=== PATIENT | male | born 1960 | race American Indian/Alaskan Native ===

== ENCOUNTER 2021-01-22 22:23 | Inpatient (IN) | payer OTHER, SELFPAY ==
--- NOTE | 2021-01-22 22:30 | Emergency Department Report ---
ED Shortness of Breath HPI - General Chief Complaint: Dyspnea/Respdistress Stated Complaint: RESPIRATORY DISTRESS Time Seen by Provider: 01/22/21 22:25 Source: patient, EMS Mode of arrival: Stretcher Limitations: No Limitations - History of Present Illness Initial Comments: Patient is a 60-year-old male that presents emergency room with complaints of di fficulty breathing and shortness of breath. He states it started 3 days ago. Patient dates symptoms are worsening. Patient states he has exposure to Covid. Patient states everybody in his house is infected with Covid. Patient complains of cough, fever, chills, loss of smell of breath. Patient denies chest pain. Patient brought in by EMS. Patient report received. Patient being bagged with 100% because the patient's oxygen saturation is less than 80. Patient initial oxygen saturation was 50% and after a nonrebreather was 75%. Patient was being assisted ventilated with a BVM and it increased to 82%. MD Complaint: shortness of breath - Related Data Previous Rx's Medication Instructions Recorded Last Taken Type Clindamycin [Clindamycin CAP] 300 mg PO Q8H #21 cap 03/12/20 Unknown Rx Insulin NPH/Regular [Novolin 70/30] 18 unit SUB-Q TIDAC #1 vial 03/12/20 Unknown Rx Syringe-Needle,Insulin,0.5 ml 1 box MC TID #1 box 03/12/20 Unknown Rx [Insulin Syringe/Needle 0.5 ML] Allergies Allergy/AdvReac Type Severity Reaction Status Date / Time No Known Allergies Allergy Unverified 03/12/20 13:41 ED Review of Systems ROS: Stated complaint: RESPIRATORY DISTRESS Other details as noted in HPI Constitutional: see HPI, chills, fever Eyes: denies: eye pain, eye discharge, vision change ENT: denies: ear pain, throat pain Respiratory: see HPI, cough, shortness of breath, SOB with exertion, SOB at rest. denies: wheezing Cardiovascular: denies: chest pain, palpitations Endocrine: no symptoms reported Gastrointestinal: denies: abdominal pain, nausea, diarrhea Genitourinary: denies: urgency, dysuria Musculoskeletal: denies: back pain, joint swelling, arthralgia Skin: denies: rash, lesions Neurological: denies: headache, weakness, paresthesias Psychiatric: denies: anxiety, depression Hematological/Lymphatic: denies: easy bleeding, easy bruising ED Past Medical Hx - Past Medical History Previous Medical History?: Yes Hx Hypertension: Yes Hx Diabetes: Yes Hx Renal Disease: Yes Additional medical history: hidradentitis surgery x 2` - Surgical History Past Surgical History?: Yes Additional Surgical History: hidraentitis - Social History Smoking Status: Never Smoker Substance Use Type: None - Medications Home Medications: Home Medications Medication Instructions Recorded Confirmed Last Taken Type Clindamycin [Clindamycin CAP] 300 mg PO Q8H #21 cap 03/12/20 Unknown Rx Insulin NPH/Regular [Novolin 70/30] 18 unit SUB-Q TIDAC #1 vial 03/12/20 Un known Rx Syringe-Needle,Insulin,0.5 ml 1 box MC TID #1 box 03/12/20 Unknown Rx [Insulin Syringe/Needle 0.5 ML] ED Physical Exam - General General appearance: alert, in distress - Head Head exam: Present: atraumatic, normocephalic - Eye Eye exam: Present: normal appearance - ENT ENT exam: Present: mucous membranes moist - Neck Neck exam: Present: normal inspection - Respiratory Respiratory exam: Present: respiratory distress, accessory muscle use, decreased breath sounds - Cardiovascular Cardiovascular Exam: Present: regular rate, normal rhythm. Absent: systolic murmur, diastolic murmur, rubs, gallop - GI/Abdominal GI/Abdominal exam: Present: soft, normal bowel sounds - Rectal Rectal exam: Present: deferred - Extremities Exam Extremities exam: Present: normal inspection - Back Exam Back exam: Present: normal inspection - Neurological Exam Neurological exam: Present: alert, oriented X3 - Psychiatric Psychiatric exam: Present: normal affect, normal mood - Skin Skin exam: Present: warm, dry, intact, normal color. Absent: rash ED Course Vital Signs 01/22/21 01/23/21 01/23/21 22:29 00:19 01:40 Temperature 99 F Pulse Rate 109 H 106 H 97 H Respiratory 47 H 20 Rate Blood Pressure 123/67 98/59 O2 Sat by Pulse 83 L 96 99 Oximetry 01/23/21 01/23/21 01/23/21 01:45 02:01 02:15 Temperature Pulse Rate 97 H 97 H 98 H Respiratory 19 16 22 Rate Blood Pressure 84/59 84/59 100/64 O2 Sat by Pulse 99 99 99 Oximetry - Reevaluation(s) Reevaluation #1: After initial valuation, the patient's was intubated due to severe hypoxia and increased work to breathe and lethargy. 01/22/21 22:29 Reevaluation #2: Patient intubated without difficulty. See procedure note. RSI used. Patient's oxygenation improved immediately after intubation. 01/22/21 22:48 Reevaluation #3: Patient on vent and adequately sedated. 01/22/21 23:08 Reevaluation #4: Patient is bucking the vent. Patient was placed on a propofol drip in addition to his already maxed fentanyl drip. 01/22/21 23:22 Reevaluation #5: Patient's adequately sedated on propofol and fentanyl. Patient's vital signs stable. 01/23/21 00:46 - Consultations Consultation #1: hospitalist consulted for admission. Hospitalist to admit patient. 01/23/21 01:17 - Intubation Time Out Performed: Yes Sedative: Etomidate Paralytic: Rocuronium Laryngoscope: fiberoptic video scope Size: 4 Assist Device Used: fiberoptic device ET Tube Size: 7.5 Tube Secured Depth (cm): 22 Tube Secured Location: teeth Tube Placement Confirmation: visualized tube passing t, equal breath sounds bilat, no breath sounds over epi, confirmation by capnometr Patient Tolerated Procedure: well, no complications Intubation Complications: none ED Medical Decision Making - Lab Data Result diagrams: 01/22/21 22:57 01/22/21 22:57 - Radiology Data Radiology results: report reviewed, image reviewed interpreted by me: Chest x-ray: Bilateral pneumonia, no pneumothorax, no osseous findings, ET tube and NG tube in good placement. CHEST 1 VIEW 01/22/2021 9:58 PM INDICATION / CLINICAL INFORMATION: Dyspnea, covid +, intubation. COMPARISON: None available. FINDINGS: SUPPORT DEVICES: ET tube and NG tube again project in expected position HEART / MEDIASTINUM: No significant abnormality. LUNGS / PLEURA: Extensive bilateral airspace consolidation No pneumothorax. ADDITIONAL FINDINGS: No significant additional findings. IMPRESSION: 1. Bilateral pneumonia - Medical Decision Making Patient is a 60-year-old male that presents emergency room with complaints of shortness of breath and fever and cough. Patient severely hypoxic and tachypneic on arrival. Patient being bagged with a BVM for ventilator assistance due to the patient's severe hypoxia by EMS upon arrival. Patient initial evaluation done and removed to intubate the patient since the patient hypoxia persisted even with BVM assistance. Patient intubated without difficulty. RSI was used. See procedure notes. Post intubation, a chest x-ray was done. Chest x-ray showed satisfactory position of the NG tube and the ET tube as well as bilateral pneumonia. After intubation, Decadron Zithromax and Rocephin were given to the patient. Patient was also placed on a fentanyl drip for sedation. Patient had labs done which were essentially unremarkable except for renal insufficiency, electrolyte imbalance, lactic acidosis and elevated inflammatory numbers. Patient also have a Covid panel and infectious disease was consulted. Patient admitted to the hospital service for further evaluation treatment and into the ICU. Critical care time documented due to the multiple reassessments, prolonged time at the bedside, interpretation of diagnostics and labs. - Differential Diagnosis Covid, PUI, fever, pneumonia, respiratory failure, hypoxia, sob, doyle Critical Care Time: Yes Critical care time in (mins) excluding proc time.: 40 Critical care attestation.: If time is entered above; I have spent that time in minutes in the direct care of this critically ill patient, excluding procedure time. Critical Care Time: 40 minutes ED Disposition Clinical Impression: Hypoxia, Respiratory distress, SOB (shortness of breath), Person under investigation for COVID-19, Exposure to COVID-19 virus, Lactic acid acidosis Respiratory failure Qualifiers: Chronicity: acute Respiratory failure complication: hypoxia Qualified Code(s): J96.01 - Acute respiratory failure with hypoxia Pneumonia Qualifiers: Pneumonia type: due to unspecified organism Laterality: bilateral Lung location: unspecified part of lung Qualified Code(s): J18.9 - Pneumonia, unspecified organism Disposition: OP ADMIT IP TO THIS HOSP Is pt being admited?: Yes Does the pt Need Aspirin: No Condition: Critical Time of Disposition:
[2021-01-22] MEDS ORDERED: ETOMIDATE 20 MG/10 ML INJ IV ONE (22:34)
[2021-01-22] MEDS ORDERED: ROCURONIUM 50 MG/5 ML INJ IV ONE (22:35)
[2021-01-22] MEDS ORDERED: MIDAZOLAM 5 MG/5 ML INJ MDV IV NR (22:36)
[2021-01-22] MEDS ORDERED: AZITHROMYCIN/NS 500 MG/250 ML 500 MG/250 ML BAG IV ONE (22:38)
[2021-01-22] MEDS ORDERED: MINERAL OIL/PETROLATUM, WHITE OPHTH OINT 3.5 GM OU PRN (22:39)
[2021-01-22] MEDS ORDERED: dexAMETHasone 4 MG/ML VIAL IV ONE (22:41)
[2021-01-22] MEDS ORDERED: cefTRIAXone/NS 2 GM/100 ML 2 GM/100 ML BAG IV ONE (22:41)
[2021-01-22] MEDS: fentaNYL DRIP Premix 2,000 MCG/100 ML BAG IV SCH (22:51)
--- NOTE | 2021-01-22 23:06 | XRay Report ---
CHEST 1 VIEW 01/22/2021 9:58 PM INDICATION / CLINICAL INFORMATION: Dyspnea, covid +, intubation. COMPARISON: None available. FINDINGS: SUPPORT DEVICES: ET tube and NG tube again project in expected position HEART / MEDIASTINUM: No significant abnormality. LUNGS / PLEURA: Extensive bilateral airspace consolidation No pneumothorax. ADDITIONAL FINDINGS: No significant additional findings. IMPRESSION: 1. Bilateral pneumonia Signer Name: Ponce Bo MD Signed: 01/22/2021 11:02 PM Workstation Name: [id number]
[2021-01-22 23:31] LABS: Albumin 2.9 g/dL (3.9-5); Calcium 7.8 mg/dL (8.4-10.2)
[2021-01-22 23:57] LABS: Basophils % (Auto) 0.3 % (0.0-1.8); Hematocrit 42.1 % (35.5-45.6); Hemoglobin 14.4 gm/dl (11.8-15.2); Lymphocytes # (Auto) 0.5 K/mm3 (1.2-5.4); Lymphocytes % (Auto) 6.6 % (13.4-35.0); Mean Corpuscular HGB Conc 34 % (32-34); Mean Corpuscular Volume 93 fl (84-94); Monocytes # (Auto) 0.4 K/mm3 (0.0-0.8); Monocytes % (Auto) 5.5 % (0.0-7.3); Platelet Count 363 K/mm3 (140-440); Red Blood Count 4.54 M/mm3 (3.65-5.03); Red Cell Distribution Width 13.7 % (13.2-15.2)
[2021-01-23 01:32] LABS: ABG Base Excess -2.5 mmol/L (-2.0-3.0); ABG HCO3 22.4 mmol/L (20.0-26.0); ABG PCO2 39.5 mm Hg; ABG PH 7.372 pH Units (7.350-7.450); ABG PO2 165.4 mm Hg (80.0-90.0)
[2021-01-23 01:33] LABS: ABG Methemoglobin 0.5 % (0.0-1.5)
[2021-01-23] MEDS ORDERED: ACETAMINOPHEN 325 MG TAB PO PRN (02:16)
[2021-01-23] MEDS ORDERED: ONDANSETRON 4 MG/2 ML INJ IV PRN (02:17)
[2021-01-23] MEDS ORDERED: ACETAMINOPHEN 650 MG RECT SUPP PR PRN (02:25)
--- NOTE | 2021-01-23 04:13 | History and Physical Report ---
History of Present Illness Date of examination: 01/23/21 Date of admission: 01/23/21 01:19 Chief complaint: Chief complaint is shortness of breath History of present illness: History of presenting illness, patient is a 60-year-old male who presented to the emergency room complaining of shortness of breath going on for about 3 days, patient said the symptoms became progressively worse and made in call 911. Patient admitted to having been in the presence of many cases of COVID-19 and admitted to having fever and chills, loss of smell and taste, body aches Past History Past Medical History: diabetes, hypertension, hyperlipidemia, renal failure, other (HIDRADENTIS) Past Surgical History: Other (HIDRADENITIS) Social history: no significant social history Family history: no significant family history Medications and Allergies Allergies Allergy/AdvReac Type Severity Reaction Status Date / Time No Known Allergies Allergy Unverified 03/12/20 13:41 Home Medications Medication Instructions Recorded Confirmed Last Taken Type Clindamycin [Clindamycin CAP] 300 mg PO Q8H #21 cap 03/12/20 Unknown Rx Insulin NPH/Regular [Novolin 70/30] 18 unit SUB-Q TIDAC #1 vial 03/12/20 Unknown Rx Syringe-Needle,Insulin,0.5 ml 1 box MC TID #1 box 03/12/20 Unknown Rx [Insulin Syringe/Needle 0.5 ML] Active Meds: Active Medications Acetaminophen (Acetaminophen 650 Mg Rect Supp) 650 mg [place] Q4H PRN PRN Reason: Pain, Mild (1-3) Dexamethasone (Dexamethasone 4 Mg/Ml Vial) 6 mg IV DAILY CECE Fentanyl (Fentanyl 100 Mcg/2 Ml Inj) 50 mcg IV Q10MIN PRN PRN Reason: ANALGESIA Hydrophilic Ointment (Lip Therapy Vaseline) 1 applic TP Q2HR PRN PRN Reason: Dry Lips Fentanyl Citrate (Fentanyl Drip Premix) 2,000 mcg in 100 mls @ 6.124 mls/hr IV TITR CECE; Protocol Last Titration: 01/23/21 03:50 Dose: 3 mcg/kg/hr, 18.371 mls/hr Documented by: Propofol (Diprivan 10 Mg/Ml) 1,000 mg in 100 mls @ 3.674 mls/hr IV TITR CECE; Protocol Last Titration: 01/23/21 03:45 Dose: 15 mcg/kg/min, 11.022 mls/hr Documented by: Azithromycin (Zithromax/Ns) 500 mg in 250 mls @ 250 mls/hr IV Q24H CECE Ceftriaxone Sodium (Rocephin/Ns 1 Gm/50 Ml) 1 gm in 50 mls @ 100 mls/hr IV Q24H CECE; Protocol Multi-Ingred Cream/Lotion/Oil/Oint (Mineral Oil/Petrolatum, White Ophth Oint 3.5 Gm) 1 applic OU Q4HR PRN PRN Reason: Dry Eye(s) Ondansetron HCl (Ondansetron 4 Mg/2 Ml Inj) 4 mg IV Q8H PRN PRN Reason: Nausea And Vomiting Review of Systems Constitutional: fever, chills, weakness, poor appetite, no sweats, no night sweats Eyes: bilateral: other (NO BILATERAL EYE SYMPTOMS) Ears, nose, mouth and throat: no ear pain Cardiovascular: shortness of breath, dyspnea on exertion, no chest pain, no palpitations, no syncope, no lightheadedness Respiratory: cough, shortness of breath, dyspnea on exertion, no congestion, no wheezing Gastrointestinal: no abdominal pain, no nausea, no vomiting, no constipation, no change in bowel habits, no hematemesis Genitourinary Male: no dysuria, no hematuria Rectal: no pain Musculoskeletal: no neck stiffness, no neck pain Integumentary: no rash, no pruritis, no redness, no sores Neurological: weakness, no paralysis, no numbness, no seizures, no syncope, no vertigo, no headaches, no convulsions, no change in speech, no change in mentation Psychiatric: no anxiety, no suicidal ideation, no depression, no confusion Endocrine: no polydipsia, no polyuria, no nocturia Hematologic/Lymphatic: no easy bruising, no lymphadenopathy Exam - Constitutional Vitals: Temp Pulse Resp BP Pulse Ox 99 F 95 H 22 96/71 99 01/22/21 22:29 01/23/21 03:15 01/23/21 03:15 01/23/21 03:15 01/23/21 03:15 General appearance: Present: mild distress - EENT ENT: other (ENDOTRACHEAL TUBE IN-PLACE) - Neck Neck: Present: supple, normal ROM - Respiratory Respiratory effort: normal - Cardiovascular Rhythm: regular Heart Sounds: Present: S1 & S2. Absent: systolic murmur - Extremities Extremities: no ischemia, No edema Peripheral Pulses: within normal limits - Abdominal General gastrointestinal: Present: soft, non-tender, tender, distended. Absent: non-distended, hepatomegaly, splenomegaly Male genitourinary: Present: deferred - Rectal Rectal Exam: deferred - Integumentary Integumentary: Present: clear, warm, dry - Musculoskeletal Musculoskeletal: generalized weakness HEART Score - HEART Score Risk factors: 1-2 risk factors Troponin: < normal limit - Critical Actions Critical Actions: 0-3 pts:0.9-1.7%risk of adverse cardiac event.Candidate for discharge Results - Labs CBC & Chem 7: 01/22/21 22:57 01/22/21 22:57 Labs: Laboratory Last Values WBC 7.7 K/mm3 (4.5-11.0) 01/22/21 22:57 RBC 4.54 M/mm3 (3.65-5.03) 01/22/21 22:57 Hgb 14.4 gm/dl (11.8-15.2) 01/22/21 22:57 Hct 42.1 % (35.5-45.6) 01/22/21 22:57 MCV 93 fl (84-94) 01/22/21 22:57 MCH 32 pg (28-32) 01/22/21 22:57 MCHC 34 % (32-34) 01/22/21 22:57 RDW 13.7 % (13.2-15.2) 01/22/21 22:57 Plt Count 363 K/mm3 (140-440) 01/22/21 22:57 Lymph % (Auto) 6.6 % (13.4-35.0) L 01/22/21 22:57 Ray % (Auto) 5.5 % (0.0-7.3) 01/22/21 22:57 Eos % (Auto) 0.0 % (0.0-4.3) 01/22/21 22:57 Baso % (Auto) 0.3 % (0.0-1.8) 01/22/21 22:57 Lymph # (Auto) 0.5 K/mm3 (1.2-5.4) L 01/22/21 22:57 Ray # (Auto) 0.4 K/mm3 (0.0-0.8) 01/22/21 22:57 Eos # (Auto) 0.0 K/mm3 (0.0-0.4) 01/22/21 22:57 Baso # (Auto) 0.0 K/mm3 (0.0-0.1) 01/22/21 22:57 Seg Neutrophils % 87.6 % (40.0-70.0) H 01/22/21 22:57 Seg Neutrophils # 6.8 K/mm3 (1.8-7.7) 01/22/21 22:57 D-Dimer 1173.89 ng/mlDDU (0-234) H 01/22/21 22:57 ABG pH 7.372 pH Units (7.350-7.450) 01/23/21 Unknown ABG pCO2 39.5 mm Hg 01/23/21 Unknown ABG pO2 165.4 mm Hg (80.0-90.0) H 01/23/21 Unknown ABG HCO3 22.4 mmol/L (20.0-26.0) 01/23/21 Unknown ABG O2 Saturation 99.0 % (95.0-99.0) 01/23/21 Unknown ABG Base Excess -2.5 mmol/L (-2.0-3.0) L 01/23/21 Unknown ABG Hemoglobin 14.2 gm/dl (14.0-18.0) 01/23/21 Unknown ABG Carboxyhemoglobin 1.7 % (0.0-5.0) 01/23/21 Unknown ABG Methemoglobin 0.5 % (0.0-1.5) 01/23/21 Unknown Oxyhemoglobin 96.8 % (95.0-99.0) 01/23/21 Unknown FiO2 100 % 01/23/21 Unknown Sodium 129 mmol/L (137-145) L 01/22/21 22:57 Potassium 3.4 mmol/L (3.6-5.0) L 01/22/21 22:57 Chloride 90.4 mmol/L (98-107) L 01/22/21 22:57 Carbon Dioxide 23 mmol/L (22-30) 01/22/21 22:57 Anion Gap 19 mmol/L 01/22/21 22:57 BUN 34 mg/dL (9-20) H 01/22/21 22:57 Creatinine 1.5 mg/dL (0.8-1.3) H 01/22/21 22:57 Estimated GFR 57 ml/min 01/22/21 22:57 BUN/Creatinine Ratio 23 % 01/22/21 22:57 Glucose 146 mg/dL (75-100) H 01/22/21 22:57 Lactic Acid 1.50 mmol/L (0.7-2.0) 01/23/21 00:36 Calcium 7.8 mg/dL (8.4-10.2) L 01/22/21 22:57 Ferritin 1207.0 ng/mL (30.0-300.0) H 01/22/21 22:57 Total Bilirubin 0.90 mg/dL (0.1-1.2) 01/22/21 22:57 AST 75 units/L (5-40) H 01/22/21 22:57 ALT 57 units/L (7-56) H 01/22/21 22:57 Alkaline Phosphatase 69 units/L (35-129) 01/22/21 22:57 Total Protein 8.2 g/dL (6.3-8.2) 01/22/21 22:57 Albumin 2.9 g/dL (3.9-5) L 01/22/21 22:57 Albumin/Globulin Ratio 0.5 % 01/22/21 22:57 Microbiology: Microbiology 01/22/21 22:57 Peripheral/Venous Blood Culture - Preliminary Culture in Progress 01/22/21 22:52 Peripheral/Venous Blood Culture - Preliminary Culture in Progress Assessment and Plan - Patient Problems (1) Person under investigation for COVID-19 Current Visit: Yes Status: Acute Plan to address problem: 1. DROPLET/AIRBORN/CONTACT ISOLATION 2. INFECTIOUS DISEASE CONSULT 3. I.V DEXAMETHASONE 4. I.V ZITHROMAX ANTIBIOTIC 5. I.V ROCEPHIN ANTIBIOTIC (2) Respiratory failure Current Visit: Yes Status: Acute Qualifiers: Chronicity: acute Respiratory failure complication: hypoxia Qualified Code(s): J96.01 - Acute respiratory failure with hypoxia Plan to address problem: 1. ICU ADMISSION 2. CONTINUE MECHANICAL VENTILATION 3. CRITICAL CARE CONSULT 4. RESPIRATORY THERAPY CONSULT (3) DEISI (acute kidney injury) Current Visit: Yes Status: Acute Plan to address problem: NEPHROLOGY CONSULT
[2021-01-23] MEDS: fentaNYL DRIP Premix 2,000 MCG/100 ML BAG IV SCH ×4 (05:16→22:09)
[2021-01-23] MEDS ORDERED: MIDAZOLAM 5 MG/5 ML INJ MDV IV NR (07:00)
--- NOTE | 2021-01-23 07:46 | Consultation ---
History of Present Illness - Reason for Consult acute renal failure - History of Present Illness patient is a 60 year old male was admitted for worsening SOB, was found to have BL PNA on CXR, he is currently on isolation for possible COVID-19, he was also found to have elevated Cr and hyponatremia and renal consult was requested Past History Past Medical History: diabetes, hypertension, hyperlipidemia, renal failure, other (HIDRADENTIS) Past Surgical History: Other (HIDRADENITIS) Social history: no significant social history Family history: no significant family history Medications and Allergies Allergies Allergy/AdvReac Type Severity Reaction Status Date / Time No Known Allergies Allergy Unverified 03/12/20 13:41 Home Medications Medication Instructions Recorded Confirmed Last Taken Type Clindamycin [Clindamycin CAP] 300 mg PO Q8H #21 cap 03/12/20 Unknown Rx Insulin NPH/Regular [Novolin 70/30] 18 unit SUB-Q TIDAC #1 vial 03/12/20 Unknown Rx Syringe-Needle,Insulin,0.5 ml 1 box MC TID #1 box 03/12/20 Unknown Rx [Insulin Syringe/Needle 0.5 ML] Active Meds: Active Medications Acetaminophen (Acetaminophen 650 Mg Rect Supp) 650 mg [place] Q4H PRN PRN Reason: Pain, Mild (1-3) Dexamethasone (Dexamethasone 4 Mg/Ml Vial) 6 mg IV DAILY CECE Fentanyl (Fentanyl 100 Mcg/2 Ml Inj) 50 mcg IV Q10MIN PRN PRN Reason: ANALGESIA Hydrophilic Ointment (Lip Therapy Vaseline) 1 applic TP Q2HR PRN PRN Reason: Dry Lips Fentanyl Citrate (Fentanyl Drip Premix) 2,000 mcg in 100 mls @ 6.124 mls/hr IV TITR CECE; Protocol Last Admin: 01/23/21 05:16 Dose: 3 mcg/kg/hr, 18.371 mls/hr Documented by: Propofol (Diprivan 10 Mg/Ml) 1,000 mg in 100 mls @ 3.674 mls/hr IV TITR CECE; Protocol Last Admin: 01/23/21 05:17 Dose: 15 mcg/kg/min, 11.022 mls/hr Documented by: Azithromycin (Zithromax/Ns) 500 mg in 250 mls @ 250 mls/hr IV Q24H CECE Ceftriaxone Sodium (Rocephin/Ns 1 Gm/50 Ml) 1 gm in 50 mls @ 100 mls/hr IV Q24H CECE; Protocol Midazolam HCl (Midazolam 5 Mg/5 Ml Inj Mdv) 5 mg IV ONCE NR Stop: 01/23/21 22:35 Multi-Ingred Cream/Lotion/Oil/Oint (Mineral Oil/Petrolatum, White Ophth Oint 3.5 Gm) 1 applic OU Q4HR PRN PRN Reason: Dry Eye(s) Ondansetron HCl (Ondansetron 4 Mg/2 Ml Inj) 4 mg IV Q8H PRN PRN Reason: Nausea And Vomiting Exam - Vital Signs Vital signs: Vital Signs Temp Pulse Resp BP Pulse Ox 99 F 109 H 47 H 123/67 83 L 01/22/21 22:29 01/22/21 22:29 01/22/21 22:29 01/22/21 22:29 01/22/21 22:29 Results - Lab Results 01/22/21 22:57 01/22/21 22:57 Most recent lab results ABG pH 7.372 pH Units (7.350-7.450) 01/23/21 Unknown ABG pCO2 39.5 mm Hg 01/23/21 Unknown ABG pO2 165.4 mm Hg (80.0-90.0) H 01/23/21 Unknown ABG HCO3 22.4 mmol/L (20.0-26.0) 01/23/21 Unknown ABG O2 Saturation 99.0 % (95.0-99.0) 01/23/21 Unknown Calcium 7.8 mg/dL (8.4-10.2) L 01/22/21 22:57 Assessment and Plan Hypoxic resp failure possible COVID-19 PNA Acute renal failure Hyponatremia Will start gentle NS 50 cc/h will request bladder scan will order urine lytes fluid restriction when oral diet resumed Renally dose meds strict I&O Carlton Pitts MD [phone]
[2021-01-23 09:45] LABS: C-Reactive Protein 30.4 mg/dL (0.00-1.30)
[2021-01-23] MEDS: FAMOTIDINE 20 MG/2 ML INJ IV SCH ×2 (09:55→22:08)
[2021-01-23] MEDS ORDERED: dexAMETHasone 4 MG/ML VIAL IV SCH (10:00)
--- NOTE | 2021-01-23 10:38 | Progress Note ---
Assessment and Plan Assessment and plan: Sepsis -Presented with low-grade fever, tachycardia, tachypnea, acute respiratory failure, pneumonia on CXR and possible acute kidney injury -Antibiotic therapy -Infectious disease consulted, appreciate recommendations -01/22 blood cultures x2 pending COVID-19 PUI -01/22 COVID-19 PCR pending -Contact/droplet precautions -Antibiotics, steroid -Infectious disease consulted Acute hypoxic respiratory failure -CCM consulted, appreciate recommendations -Wean mechanical ventilation as tolerated -Pulmonary hygiene -SPO2 monitoring -VAP bundle Bilateral pneumonia -Evidenced by CXR -Antibiotic therapy Acute kidney injury -Likely secondary to VMO -02/2020 CR/BUN 1.2 -Avoid nephrotoxic medications, renally dose medications -Nephrology consulted, appreciate recommendations -Strict intake and output -Renal ultrasound pending Hyponatremia -Presented with a sodium of 129 -Trend BMP -MIVF Hypochloremia -MIVF -Trend BMP Diabetes mellitus -Hemoglobin A1c pending -SSI -CC diet when appropriate Hypertension -Resume home antihypertensive regimen when appropriate -Blood pressure monitor per protocol Hyperlipidemia -Resume home statin therapy when appropriate DVT/GI prophylaxis: SCDs to bilateral lower extremities while in bed, heparin subcu, PPI Dispo: ICU History Interval history: This is a 60-year-old male with diabetes mellitus, hypertension, hyperlipidemia, chronic renal insufficiency presents to the emergency department on 01/23 with shortness of breath, fevers chills, loss of smell and taste and body aches for the past 3 days via EMS. Per EMS patient's oxygen saturation on room air was 50% and after being placed on nonrebreather it increased 75%. Upon arrival to the emergency department patient was being bagged by EMS. In the emergency room patient was intubated due to severe hypoxia, increased work of breathing and lethargy. Patient was sedated on propofol and fentanyl. Patient presented with fever, tachycardia, tachypnea and acute hypoxic respiratory failure with PNA on CXR meeting Sepsis criteria. Lab work in the emergency department revealed hyponatremia, hypokalemia, hypochloremia, elevated CR/BUN and CXR showed bilateral pneumonia. Patient was admitted to the hospital service as a COVID-19 PUI with consults to infectious disease, nephrology and critical care medicine. Sepsis COVID-19 PUI Bilateral pneumonia Acute hypoxic respiratory failure Acute kidney injury Hyponatremia Hypokalemia Hypochloremia Diabetes mellitus Hypertension Hyperlipidemia Hyperlipidemia Chronic renal insufficiency Hospitalist Physical - Constitutional Vitals: Temp Pulse Resp BP Pulse Ox 99 F 80 16 92/56 94 01/22/21 22:29 01/23/21 09:15 01/23/21 09:15 01/23/21 09:15 01/23/21 09:15 General appearance: Present: no acute distress - EENT Eyes: Present: PERRL, EOM intact ENT: hearing intact, dentition normal - Neck Neck: Present: normal ROM - Respiratory Respiratory effort: normal Respiratory: bilateral: CTA, diminished - Cardiovascular Rhythm: regular Heart Sounds: Present: S1 & S2. Absent: systolic murmur, diastolic murmur - Extremities Extremities: no ischemia, pulses intact, pulses symmetrical, No edema, normal temperature, normal color Peripheral Pulses: within normal limits - Abdominal General gastrointestinal: soft, non-tender, non-distended, normal bowel sounds - Integumentary Integumentary: Present: warm, dry - Psychiatric Psychiatric: cooperative - Neurologic Neurologic: moves all extremities - Allied Health Allied health notes reviewed: nursing, RT HEART Score - HEART Score Risk factors: 1-2 risk factors Troponin: < normal limit - Critical Actions Critical Actions: 0-3 pts:0.9-1.7%risk of adverse cardiac event.Candidate for discharge Results - Labs CBC & Chem 7: 01/22/21 22:57 01/23/21 10:01 Labs: Laboratory Last Values WBC 7.7 K/mm3 (4.5-11.0) 01/22/21 22:57 RBC 4.54 M/mm3 (3.65-5.03) 01/22/21 22:57 Hgb 14.4 gm/dl (11.8-15.2) 01/22/21 22:57 Hct 42.1 % (35.5-45.6) 01/22/21 22:57 MCV 93 fl (84-94) 01/22/21 22:57 MCH 32 pg (28-32) 01/22/21 22:57 MCHC 34 % (32-34) 01/22/21 22:57 RDW 13.7 % (13.2-15.2) 01/22/21 22:57 Plt Count 363 K/mm3 (140-440) 01/22/21 22:57 Lymph % (Auto) 6.6 % (13.4-35.0) L 01/22/21 22:57 [place] % (Auto) 5.5 % (0.0-7.3) 01/22/21 22:57 Eos % (Auto) 0.0 % (0.0-4.3) 01/22/21 22:57 Baso % (Auto) 0.3 % (0.0-1.8) 01/22/21 22:57 Lymph # (Auto) 0.5 K/mm3 (1.2-5.4) L 01/22/21 22:57 [place] # (Auto) 0.4 K/mm3 (0.0-0.8) 01/22/21 22:57 Eos # (Auto) 0.0 K/mm3 (0.0-0.4) 01/22/21 22:57 Baso # (Auto) 0.0 K/mm3 (0.0-0.1) 01/22/21 22:57 Seg Neutrophils % 87.6 % (40.0-70.0) H 01/22/21 22:57 Seg Neutrophils # 6.8 K/mm3 (1.8-7.7) 01/22/21 22:57 D-Dimer 1173.89 ng/mlDDU (0-234) H 01/22/21 22:57 ABG pH 7.372 pH Units (7.350-7.450) 01/23/21 Unknown ABG pCO2 39.5 mm Hg 01/23/21 Unknown ABG pO2 165.4 mm Hg (80.0-90.0) H 01/23/21 Unknown ABG HCO3 22.4 mmol/L (20.0-26.0) 01/23/21 Unknown ABG O2 Saturation 99.0 % (95.0-99.0) 01/23/21 Unknown ABG O2 Content 19.6 (0.0-44) 01/23/21 Unknown ABG Base Excess -2.5 mmol/L (-2.0-3.0) L 01/23/21 Unknown ABG Hemoglobin 14.2 gm/dl (14.0-18.0) 01/23/21 Unknown ABG Carboxyhemoglobin 1.7 % (0.0-5.0) 01/23/21 Unknown ABG Methemoglobin 0.5 % (0.0-1.5) 01/23/21 Unknown Oxyhemoglobin 96.8 % (95.0-99.0) 01/23/21 Unknown FiO2 100 % 01/23/21 Unknown Sodium 129 mmol/L (137-145) L 01/22/21 22:57 Potassium 3.4 mmol/L (3.6-5.0) L 01/22/21 22:57 Chloride 90.4 mmol/L (98-107) L 01/22/21 22:57 Carbon Dioxide 23 mmol/L (22-30) 01/22/21 22:57 Anion Gap 19 mmol/L 01/22/21 22:57 BUN 34 mg/dL (9-20) H 01/22/21 22:57 Creatinine 1.5 mg/dL (0.8-1.3) H 01/22/21 22:57 Estimated GFR 57 ml/min 01/22/21 22:57 BUN/Creatinine Ratio 23 % 01/22/21 22:57 Glucose 146 mg/dL (75-100) H 01/22/21 22:57 Glucose 149 mg/dL (75-100) H 01/22/21 22:57 Lactic Acid 1.90 mmol/L (0.7-2.0) 01/23/21 06:35 Calcium 7.8 mg/dL (8.4-10.2) L 01/22/21 22:57 Ferritin 1207.0 ng/mL (30.0-300.0) H 01/22/21 22:57 Total Bilirubin 0.90 mg/dL (0.1-1.2) 01/22/21 22:57 AST 75 units/L (5-40) H 01/22/21 22:57 ALT 57 units/L (7-56) H 01/22/21 22:57 Alkaline Phosphatase 69 units/L (35-129) 01/22/21 22:57 Lactate Dehydrogenase 685 units/L (91-180) H 01/22/21 22:57 C-Reactive Protein 30.40 mg/dL (0.00-1.30) H 01/22/21 22:57 Total Protein 8.2 g/dL (6.3-8.2) 01/22/21 22:57 Albumin 2.9 g/dL (3.9-5) L 01/22/21 22:57 Albumin/Globulin Ratio 0.5 % 01/22/21 22:57 Microbiology: Microbiology 01/22/21 22:57 Peripheral/Venous Blood Culture - Preliminary Culture in Progress 01/22/21 22:52 Peripheral/Venous Blood Culture - Preliminary Culture in Progress Active Medications - Current Medications Current Medications: Generic Name Dose Route Start Last Admin Trade Name Freq PRN Reason Stop Dose Admin Acetaminophen 650 mg 01/23/21 02:25 Acetaminophen 650 Mg Rect Supp [place] Q4H PRN Pain, Mild (1-3) Dexamethasone 6 mg 01/23/21 10:00 01/23/21 09:54 Dexamethasone 4 Mg/Ml Vial IV 6 mg DAILY CECE Administration Famotidine 20 mg 01/23/21 10:00 01/23/21 09:55 Famotidine 20 Mg/2 Ml Inj IV 20 mg BID CECE Administration Fentanyl 50 mcg 01/22/21 22:39 Fentanyl 100 Mcg/2 Ml Inj IV Q10MIN PRN ANALGESIA Hydrophilic Ointment 1 applic 01/22/21 22:39 Lip Therapy Vaseline TP Q2HR PRN Dry Lips Fentanyl Citrate 2,000 mcg in 100 mls @ 6.124 mls/hr 01/22/21 23:00 01/23/21 10:03 Fentanyl Drip Premix IV 3 mcg/kg/hr TITR CECE 18.371 mls/hr Administration Protocol 1 MCG/KG/HR Propofol 1,000 mg in 100 mls @ 3.674 mls/hr 01/22/21 23:45 01/23/21 05:17 Diprivan 10 Mg/Ml IV 15 mcg/kg/min TITR CECE 11.022 mls/hr Administration Protocol 5 MCG/KG/MIN Azithromycin 500 mg in 250 mls @ 250 mls/hr 01/23/21 22:00 Zithromax/Ns IV Q24H CECE Sodium Chloride 1,000 mls @ 50 mls/hr 01/23/21 08:00 Nacl 0.9% 1000 Ml IV DIRECT CECE Ceftriaxone Sodium 2 gm in 100 mls @ 200 mls/hr 01/23/21 22:00 Rocephin/Ns 2 Gm/100 Ml IV Q24H CECE Protocol Midazolam HCl 5 mg 01/22/21 22:36 Midazolam 5 Mg/5 Ml Inj Mdv IV 01/23/21 22:35 ONCE NR Multi-Ingred Cream/Lotion/Oil/Oint 1 applic 01/22/21 22:39 Mineral Oil/Petrolatum, White Ophth Oint 3.5 Gm OU Q4HR PRN Dry Eye(s) Ondansetron HCl 4 mg 01/23/21 02:17 Ondansetron 4 Mg/2 Ml Inj IV Q8H PRN Nausea And Vomiting
--- NOTE | 2021-01-23 11:13 | Vascular Lab Report ---
DUPLEX DOPPLER LOWER EXTREMITY VEINS, BILATERAL INDICATION / CLINICAL INFORMATION: COVID 19 suspect/pneumonia. TECHNIQUE: Duplex doppler imaging was performed through the veins of both lower extremities using venous heber angella and other maneuvers. COMPARISON: None available. FINDINGS: RIGHT COMMON FEMORAL VEIN: Negative. RIGHT FEMORAL VEIN: Negative. RIGHT POPLITEAL VEIN: Negative. RIGHT CALF VEINS: Negative. LEFT COMMON FEMORAL VEIN: Negative. LEFT FEMORAL VEIN: Negative. LEFT POPLITEAL VEIN: Negative. LEFT CALF VEINS: Negative. ADDITIONAL FINDINGS: None. IMPRESSION: 1. No sonographic evidence for DVT in either lower extremity. Signer Name: Tato Adkins MD Signed: 01/23/2021 11:08 AM Workstation Name: [id number]
--- NOTE | 2021-01-23 12:55 | Consultation ---
History of Present Illness Consult date: 01/23/21 Requesting physician: HILLARY LEONG Reason for consult: hypoxemia, other (COVID 19 Pneumonia.) History of present illness: 60 y/o male admitted with acute respiratory failure thought secondary to COVID 19. Patient is current intubated and sedated so not able to provide history. ABG showed a PaO2 of >100 on 100%. Past History Past Medical History: diabetes, hypertension, hyperlipidemia, renal failure, other (HIDRADENTIS) Past Surgical History: Other (HIDRADENITIS) Social history: no significant social history Family history: no significant family history Medications and Allergies Allergies Allergy/AdvReac Type Severity Reaction Status Date / Time No Known Allergies Allergy Unverified 03/12/20 13:41 Home Medications Medication Instructions Recorded Confirmed Last Taken Type Clindamycin [Clindamycin CAP] 300 mg PO Q8H #21 cap 03/12/20 Unknown Rx Insulin NPH/Regular [Novolin 70/30] 18 unit SUB-Q TIDAC #1 vial 03/12/20 Unknown Rx Syringe-Needle,Insulin,0.5 ml 1 box MC TID #1 box 03/12/20 Unknown Rx [Insulin Syringe/Needle 0.5 ML] Active Meds: Active Medications Acetaminophen (Acetaminophen 650 Mg Rect Supp) 650 mg [place] Q4H PRN PRN Reason: Pain, Mild (1-3) Dexamethasone (Dexamethasone 4 Mg/Ml Vial) 6 mg IV BID CECE Stop: 02/01/21 22:01 Famotidine (Famotidine 20 Mg/2 Ml Inj) 20 mg IV BID CECE Last Admin: 01/23/21 09:55 Dose: 20 mg Documented by: Fentanyl (Fentanyl 100 Mcg/2 Ml Inj) 50 mcg IV Q10MIN PRN PRN Reason: ANALGESIA Hydrophilic Ointment (Lip Therapy Vaseline) 1 applic TP Q2HR PRN PRN Reason: Dry Lips Fentanyl Citrate (Fentanyl Drip Premix) 2,000 mcg in 100 mls @ 6.124 mls/hr IV TITR CECE; Protocol Last Admin: 01/23/21 10:03 Dose: 3 mcg/kg/hr, 18.371 mls/hr Documented by: Propofol (Diprivan 10 Mg/Ml) 1,000 mg in 100 mls @ 3.674 mls/hr IV TITR CECE; Protocol Last Admin: 03/26/21 11:19 Dose: 15 mcg/kg/min, 11.022 mls/hr Documented by: Azithromycin (Zithromax/Ns) 500 mg in 250 mls @ 250 mls/hr IV Q24H CECE Sodium Chloride (Nacl 0.9% 1000 Ml) 1,000 mls @ 50 mls/hr IV DIRECT CECE Ceftriaxone Sodium (Rocephin/Ns 2 Gm/100 Ml) 2 gm in 100 mls @ 200 mls/hr IV Q24H CECE; Protocol Midazolam HCl (Midazolam 5 Mg/5 Ml Inj Mdv) 5 mg IV ONCE NR Stop: 01/23/21 22:35 Multi-Ingred Cream/Lotion/Oil/Oint (Mineral Oil/Petrolatum, White Ophth Oint 3.5 Gm) 1 applic OU Q4HR PRN PRN Reason: Dry Eye(s) Ondansetron HCl (Ondansetron 4 Mg/2 Ml Inj) 4 mg IV Q8H PRN PRN Reason: Nausea And Vomiting Physical Examination Vital signs: Vital Signs Temp Pulse Resp BP Pulse Ox 99 F 109 H 47 H 123/67 83 L 01/22/21 22:29 01/22/21 22:29 01/22/21 22:29 01/22/21 22:29 01/22/21 22:29 Results - Laboratory Findings CBC and BMP: 01/24/21 05:05 01/24/21 05:05 ABG ABG pH 7.372 pH Units (7.350-7.450) 01/23/21 Unknown ABG pCO2 39.5 mm Hg 01/23/21 Unknown ABG pO2 165.4 mm Hg (80.0-90.0) H 01/23/21 Unknown ABG O2 Saturation 99.0 % (95.0-99.0) 01/23/21 Unknown PT/INR, D-dimer D-Dimer 1173.89 ng/mlDDU (0-234) H 01/22/21 22:57 Abnormal lab findings: Abnormal Labs 01/22/21 01/22/21 01/22/21 22:57 22:57 22:57 Lymph % (Auto) 6.6 L Lymph # (Auto) 0.5 L Seg Neutrophils % 87.6 H D-Dimer ABG pO2 ABG Base Excess Sodium 129 L Potassium 3.4 L Chloride 90.4 L BUN 34 H Creatinine 1.5 H Glucose 146 H Lactic Acid 2.10 H* Calcium 7.8 L Ferritin AST 75 H ALT 57 H Lactate Dehydrogenase C-Reactive Protein Albumin 2.9 L 01/22/21 01/22/21 01/22/21 22:57 22:57 22:57 Lymph % (Auto) Lymph # (Auto) Seg Neutrophils % D-Dimer 1173.89 H ABG pO2 ABG Base Excess Sodium Potassium Chloride BUN Creatinine Glucose 149 H Lactic Acid Calcium Ferritin 1207.0 H AST ALT Lactate Dehydrogenase 685 H C-Reactive Protein 30.40 H Albumin 01/23/21 Unknown Lymph % (Auto) Lymph # (Auto) Seg Neutrophils % D-Dimer ABG pO2 165.4 H ABG Base Excess -2.5 L Sodium Potassium Chloride BUN Creatinine Glucose Lactic Acid Calcium Ferritin AST ALT Lactate Dehydrogenase C-Reactive Protein Albumin Assessment and Plan 60 y/o male with ARDS secondary most likely to COVID 19 pneumonia. 1. Increase steroids to BID given size 2. Check with ID to see if he is a candidate for remdesivir or any other experiemental therapy 3. Hold on proning for right now 4. Renal consulted and giving IVF's currently Guarded prognosis. CCT 31 minutes.
[2021-01-23 12:59] LABS: Calcium 7.5 mg/dL (8.4-10.2)
--- NOTE | 2021-01-23 14:52 | Consultation ---
History of Present Illness - Reason for Consult Consult date: 01/23/21 Rule out COVID-19 Requesting physician: SANDRA CARRANZA III - History of Present Illness 61 years old male with history of morbid obesity admitted on 01/22/2021 secondary to 3-day history of worsening shortness of breath. History is limited. Patient currently intubated. Per ED records, patient was exposed to many cases of COVID-19. Patient called 911 and was brought to the hospital. History of presenting illness, patient is a 60-year-old male who presented to the emergency room complaining of shortness of breath going on for about 3 days, patient said the symptoms became progressively worse and made in call 911. Patient reported exposure to many cases of COVID-19 and admitted to having fever and chills, loss of smell and taste, body aches. On arrival, temp 99, HR 109, R 47, O2 83%, BP 123/67--> 82/54. EWBC 7.7. Lactate 2.1. Creatinine 1.5. AST 75. ALT 77. CRP 30. D-dimer 1173. SARS-CoV-2 PCR positive. Chest x-ray with bilateral airspace disease. Review of Systems: reviewed ED and H&P notes. Review of system deferred to minimize COVID-19 transmission. n Past History Past Medical History: diabetes, hypertension, hyperlipidemia, renal failure, other (HIDRADENTIS) Past Surgical History: Other (HIDRADENITIS) Social history: no significant social history Family history: no significant family history Medications and Allergies Allergies Allergy/AdvReac Type Severity Reaction Status Date / Time No Known Allergies Allergy Unverified 03/12/20 13:41 Home Medications Medication Instructions Recorded Confirmed Last Taken Type Clindamycin [Clindamycin CAP] 300 mg PO Q8H #21 cap 03/12/20 Unknown Rx Insulin NPH/Regular [Novolin 70/30] 18 unit SUB-Q TIDAC #1 vial 03/12/20 Unknown Rx Syringe-Needle,Insulin,0.5 ml 1 box MC TID #1 box 03/12/20 Unknown Rx [Insulin Syringe/Needle 0.5 ML] Active Meds: Active Medications Acetaminophen (Acetaminophen 650 Mg Rect Supp) 650 mg [place] Q4H PRN PRN Reason: Pain, Mild (1-3) Dexamethasone (Dexamethasone 4 Mg/Ml Vial) 6 mg IV BID [facility] Stop: 02/01/21 22:01 Famotidine (Famotidine 20 Mg/2 Ml Inj) 20 mg IV BID [facility] Last Admin: 01/23/21 09:55 Dose: 20 mg Documented by: Fentanyl (Fentanyl 100 Mcg/2 Ml Inj) 50 mcg IV Q10MIN PRN PRN Reason: ANALGESIA Hydrophilic Ointment (Lip Therapy Vaseline) 1 applic TP Q2HR PRN PRN Reason: Dry Lips Fentanyl Citrate (Fentanyl Drip Premix) 2,000 mcg in 100 mls @ 6.124 mls/hr IV TITR CECE; Protocol Last Admin: 01/23/21 10:03 Dose: 3 mcg/kg/hr, 18.371 mls/hr Documented by: Propofol (Diprivan 10 Mg/Ml) 1,000 mg in 100 mls @ 3.674 mls/hr IV TITR CECE; Protocol Last Admin: 01/23/21 11:19 Dose: 15 mcg/kg/min, 11.022 mls/hr Documented by: Azithromycin (Zithromax/Ns) 500 mg in 250 mls @ 250 mls/hr IV Q24H CECE Sodium Chloride (Nacl 0.9% 1000 Ml) 1,000 mls @ 50 mls/hr IV DIRECT CECE Ceftriaxone Sodium (Rocephin/Ns 2 Gm/100 Ml) 2 gm in 100 mls @ 200 mls/hr IV Q24H CECE; Protocol Midazolam HCl (Midazolam 5 Mg/5 Ml Inj Mdv) 5 mg IV ONCE NR Stop: 01/23/21 22:35 Multi-Ingred Cream/Lotion/Oil/Oint (Mineral Oil/Petrolatum, White Ophth Oint 3.5 Gm) 1 applic OU Q4HR PRN PRN Reason: Dry Eye(s) Ondansetron HCl (Ondansetron 4 Mg/2 Ml Inj) 4 mg IV Q8H PRN PRN Reason: Nausea And Vomiting Physical Examination - Physical Exam Narrative exam: Physical exam deferred to minimize COVID-19 transmission during pandemic. ER and internal medicine physical examination notes reviewed. - Constitutional Vitals: Vital Signs Temp Pulse Resp BP Pulse Ox 99 F 75 17 96/53 95 01/22/21 22:29 01/23/21 14:31 01/23/21 14:31 01/23/21 14:31 01/23/21 14:31 Temperature -Last 24 Hours Temperature 99 F Results - Labs CBC & Chem 7: 01/22/21 22:57 01/23/21 10:01 Labs: Abnormal lab results 01/22/21 01/22/21 01/22/21 Range/Units 22:57 22:57 22:57 Lymph % (Auto) 6.6 L (13.4-35.0) % Lymph # (Auto) 0.5 L (1.2-5.4) K/mm3 Seg Neutrophils % 87.6 H (40.0-70.0) % D-Dimer (0-234) ng/mlDDU ABG pO2 (80.0-90.0) mm Hg ABG Base Excess (-2.0-3.0) mmol/L Sodium 129 L (137-145) mmol/L Potassium 3.4 L (3.6-5.0) mmol/L Chloride 90.4 L (98-107) mmol/L Carbon Dioxide (22-30) mmol/L BUN 34 H (9-20) mg/dL Creatinine 1.5 H (0.8-1.3) mg/dL Glucose 146 H (75-100) mg/dL Lactic Acid 2.10 H* (0.7-2.0) mmol/L Calcium 7.8 L (8.4-10.2) mg/dL Ferritin (30.0-300.0) ng/mL AST 75 H (5-40) units/L ALT 57 H (7-56) units/L Lactate Dehydrogenase (91-180) units/L C-Reactive Protein (0.00-1.30) mg/dL Albumin 2.9 L (3.9-5) g/dL Coronavirus (PCR) (Negative) 01/22/21 01/22/21 01/22/21 Range/Units 22:57 22:57 22:57 Lymph % (Auto) (13.4-35.0) % Lymph # (Auto) (1.2-5.4) K/mm3 Seg Neutrophils % (40.0-70.0) % D-Dimer 1173.89 H (0-234) ng/mlDDU ABG pO2 (80.0-90.0) mm Hg ABG Base Excess (-2.0-3.0) mmol/L Sodium (137-145) mmol/L Potassium (3.6-5.0) mmol/L Chloride (98-107) mmol/L Carbon Dioxide (22-30) mmol/L BUN (9-20) mg/dL Creatinine (0.8-1.3) mg/dL Glucose 149 H (75-100) mg/dL Lactic Acid (0.7-2.0) mmol/L Calcium (8.4-10.2) mg/dL Ferritin 1207.0 H (30.0-300.0) ng/mL AST (5-40) units/L ALT (7-56) units/L Lactate Dehydrogenase 685 H (91-180) units/L C-Reactive Protein 30.40 H (0.00-1.30) mg/dL Albumin (3.9-5) g/dL Coronavirus (PCR) (Negative) 01/23/21 01/23/21 01/23/21 Range/Units 08:41 10:01 Unknown Lymph % (Auto) (13.4-35.0) % Lymph # (Auto) (1.2-5.4) K/mm3 Seg Neutrophils % (40.0-70.0) % D-Dimer (0-234) ng/mlDDU ABG pO2 165.4 H (80.0-90.0) mm Hg ABG Base Excess -2.5 L (-2.0-3.0) mmol/L Sodium 131 L (137-145) mmol/L Potassium (3.6-5.0) mmol/L Chloride 88.7 L (98-107) mmol/L Carbon Dioxide 18 L (22-30) mmol/L BUN 36 H (9-20) mg/dL Creatinine 1.6 H (0.8-1.3) mg/dL Glucose 147 H (75-100) mg/dL Lactic Acid (0.7-2.0) mmol/L Calcium 7.5 L (8.4-10.2) mg/dL Ferritin (30.0-300.0) ng/mL AST (5-40) units/L ALT (7-56) units/L Lactate Dehydrogenase (91-180) units/L C-Reactive Protein (0.00-1.30) mg/dL Albumin (3.9-5) g/dL Coronavirus (PCR) Positive A (Negative) Assessment and Plan Cultures: Blood culture no growth today SARS CoV2 PCR positive Assessment: 61 years old male with history of morbid obesity admitted on 01/22/2021 secondary to 3-day history of worsening shortness of breath associated with fever, chills, loss of smell and taste: #Severe sepsis: Present on admission with low-grade fever, tachycardia, hypoxia, hypotension, elevated lactate, DEISI, likely due to bilateral pneumonia. Urinalysis negative. Procalcitonin elevated in the setting of DEISI. #Critical COVID-19 pneumonia: Patient intubated. Chest x-ray with bilateral airspace disease. Inflammatory markers elevated. D-dimer 1173. CRP 30. #Acute respiratory failure: EMS O2 sats 50%. Intubated on arrival to ED. FiO2 90%, PEEP 12. #Transaminitis: Likely secondary to COVID-19. #DEISI: Likely secondary to COVID-19. Recommendations: -Continue dexamethasone per pulmonary recommendations -Start remdesivir for 5 days -No candidate for Tocilizumab per primary healthcare criteria -Monitor inflammatory markers - ferritin, Ddimer, CRP, LDH -Monitor liver function test on Remdesivir -Continue anticoagulation per System Protocol -Prone positioning as possible -Continue ceftriaxone azithromycin for now All laboratory, cultures and imaging were reviewed. High mortality Dr. Byrne rounding this weekend Will follow Jami Laird MD Infectious Diseases [employer] [facility] M [phone] O [phone]
[2021-01-23 16:21] LABS: Bilirubin,Urine NEG (Negative); Blood,Urine MOD (Negative); Color,Urine Amber (Yellow); RBC,Urine < 1.0 /HPF (0.0-6.0); WBC,Urine < 1.0 /HPF (0.0-6.0)
[2021-01-23 16:34] LABS: Creatinine,Urine 301.2 mg/dL (0.1-20.0)
[2021-01-23] MEDS: SODIUM CHLORIDE 0.9% 1000 ML 1,000 ML IV SCH ×2 (17:01→21:07)
[2021-01-23] MEDS ORDERED: REMDESIVIR 200 MG in SODIUM CHLORIDE 0.9% 250ML 250 ML IV ONE (21:00)
[2021-01-23] MEDS ORDERED: REMDESIVIR 100 MG VIAL IV ONE (21:00)
[2021-01-23] MEDS: SODIUM CHLORIDE 0.9% 50 ML IVPB IV SCH (21:13)
[2021-01-23 21:37] LABS: Albumin 2.4 g/dL (3.9-5)
[2021-01-23] MEDS ORDERED: cefTRIAXone/NS 1 GM/50 ML 1 GM/50 ML BAG IV SCH (22:00)
[2021-01-23] MEDS: cefTRIAXone/NS 2 GM/100 ML 2 GM/100 ML BAG IV SCH (22:08)
[2021-01-23] MEDS: dexAMETHasone 4 MG/ML VIAL IV SCH (22:08)
[2021-01-23] MEDS: AZITHROMYCIN/NS 500 MG/250 ML 500 MG/250 ML BAG IV SCH (23:22)
--- NOTE | 2021-01-24 03:39 | XRay Report ---
CHEST 1 VIEW INDICATION: follow up respiratory failure COMPARISON: 01/22/2021 FINDINGS: Support devices: Unchanged. Heart: Stable. Lungs/Pleura: Bilateral pleural-parenchymal disease persists but has improved slightly. IMPRESSION: 1. Slight improvement. Signer Name: Lavon Padilla MD Signed: 01/24/2021 3:34 AM Workstation Name: [email or web address]
[2021-01-24 05:55] LABS: Hematocrit 41.1 % (35.5-45.6); Mean Corpuscular HGB Conc 34 % (32-34); Mean Corpuscular Volume 95 fl (84-94); Red Blood Count 4.31 M/mm3 (3.65-5.03); Red Cell Distribution Width 14.2 % (13.2-15.2)
[2021-01-24 06:09] LABS: Platelet Count 418 K/mm3 (140-440)
[2021-01-24 06:11] LABS: Albumin 2.4 g/dL (3.9-5); Calcium 7.7 mg/dL (8.4-10.2)
[2021-01-24 06:32] LABS: C-Reactive Protein 33.2 mg/dL (0.00-1.30)
[2021-01-24 07:02] LABS: Rouleaux Few; Total Cells Counted 100
[2021-01-24 07:03] LABS: Platelet Estimate Consistent w Auto
--- NOTE | 2021-01-24 07:59 | Progress Note ---
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 Renally dose meds strict I&O Carlton Pitts MD [phone] Subjective Date of service: 01/24/21 Principal diagnosis: DEISI Interval history: patient was tested positive for COVID-19, on IVF Objective - Vital Signs Vital signs: Vital Signs - 12hr 01/23/21 01/23/21 01/23/21 19:59 20:00 23:33 Temperature Pulse Rate 83 85 83 Blood Pressure 106/63 107/59 O2 Sat by Pulse 96 95 Oximetry 01/23/21 01/24/21 01/24/21 23:36 00:00 03:02 Temperature 98.9 F 98.8 F Pulse Rate 83 Blood Pressure O2 Sat by Pulse Oximetry 01/24/21 04:00 Temperature Pulse Rate 87 Blood Pressure 103/67 O2 Sat by Pulse 96 Oximetry - Lab 01/24/21 05:05 01/24/21 05:05 Most recent lab results ABG pH 7.372 pH Units (7.350-7.450) 01/23/21 Unknown ABG pCO2 39.5 mm Hg 01/23/21 Unknown ABG pO2 165.4 mm Hg (80.0-90.0) H 01/23/21 Unknown ABG HCO3 22.4 mmol/L (20.0-26.0) 01/23/21 Unknown ABG O2 Saturation 99.0 % (95.0-99.0) 01/23/21 Unknown Calcium 7.7 mg/dL (8.4-10.2) L 01/24/21 05:05 Urine Creatinine 301.2 mg/dL (0.1-20.0) H 01/22/21 22:39 Urine Sodium 28 mmol/L 01/22/21 22:39 Medications & Allergies - Medications Allergies/Adverse Reactions: Allergies No Known Allergies Allergy (Unverified 03/12/20 13:41) Home Medications: Home Medications Medication Instructions Recorded Confirmed Last Taken Type Clindamycin [Clindamycin CAP] 300 mg PO Q8H #21 cap 03/12/20 Unknown Rx Insulin NPH/Regular [Novolin 70/30] 18 unit SUB-Q TIDAC #1 vial 03/12/20 Unknown Rx Syringe-Needle,Insulin,0.5 ml 1 box TID #1 box 03/12/20 Unknown Rx [Insulin Syringe/Needle 0.5 ML] Active Medications: Generic Name Dose Route Start Last Admin Trade Name Freq PRN Reason Stop Dose Admin Acetaminophen 650 mg 01/23/21 02:25 Acetaminophen 650 Mg Rect Supp CA Q4H PRN Pain, Mild (1-3) Dexamethasone 6 mg 01/23/21 22:00 01/23/21 22:08 Dexamethasone 4 Mg/Ml Vial IV 02/01/21 22:01 6 mg BID CECE Administration Famotidine 20 mg 01/23/21 10:00 01/23/21 22:08 Famotidine 20 Mg/2 Ml Inj IV 20 mg BID CECE Administration Fentanyl 50 mcg 01/22/21 22:39 Fentanyl 100 Mcg/2 Ml Inj IV Q10MIN PRN ANALGESIA Hydrophilic Ointment 1 applic 01/22/21 22:39 Lip Therapy Vaseline TP Q2HR PRN Dry Lips Fentanyl Citrate 2,000 mcg in 100 mls @ 6.124 mls/hr 01/22/21 23:00 01/24/21 01:34 Fentanyl Drip Premix IV 1 mcg/kg/hr TITR CECE 6.124 mls/hr Titration Protocol 1 MCG/KG/HR Propofol 1,000 mg in 100 mls @ 3.674 mls/hr 01/22/21 23:45 01/24/21 03:24 Diprivan 10 Mg/Ml IV 10 mcg/kg/min TITR CECE 7.348 mls/hr Titration Protocol 5 MCG/KG/MIN Azithromycin 500 mg in 250 mls @ 250 mls/hr 01/23/21 22:00 01/23/21 23:22 Zithromax/Ns IV 250 mls/hr Q24H CECE Administration Sodium Chloride 1,000 mls @ 50 mls/hr 01/23/21 08:00 01/23/21 21:07 Nacl 0.9% 1000 Ml IV 50 mls/hr DIRECT CECE Administration Ceftriaxone Sodium 2 gm in 100 mls @ 200 mls/hr 01/23/21 22:00 01/23/21 22:08 Rocephin/Ns 2 Gm/100 Ml IV 200 mls/hr Q24H CECE Administration Protocol REMDESIVIR 100 mg/ Sodium 250 mls @ 500 mls/hr 01/24/21 21:00 Chloride IV 01/27/21 21:29 Q24HR@2100 [facility] Multi-Ingred Cream/Lotion/Oil/Oint 1 applic 01/22/21 22:39 Mineral Oil/Petrolatum, White Ophth Oint 3.5 Gm OU Q4HR PRN Dry Eye(s) Ondansetron HCl 4 mg 01/23/21 02:17 Ondansetron 4 Mg/2 Ml Inj IV Q8H PRN Nausea And Vomiting Sodium Chloride 50 ml 01/23/21 21:00 01/23/21 21:13 Sodium Chloride 0.9% 50 Ml Ivpb IV 01/27/21 21:01 Not Given Q24HR@2100 [facility]
[2021-01-24] MEDS: dexAMETHasone 4 MG/ML VIAL IV SCH ×2 (09:31→21:41)
--- NOTE | 2021-01-24 09:55 | Progress Note ---
Assessment and Plan Assessment and plan: Sepsis -Presented with low-grade fever, tachycardia, tachypnea, acute respiratory failure, pneumonia on CXR and possible acute kidney injury -Antibiotic therapy -Infectious disease consulted, appreciate recommendations -01/22 blood cultures x2 pending COVID-19 PUI -01/22 COVID-19 PCR pending -Contact/droplet precautions -Antibiotics, steroid -Infectious disease consulted Acute hypoxic respiratory failure -CCM consulted, appreciate recommendations -Wean mechanical ventilation as tolerated -Pulmonary hygiene -SPO2 monitoring -VAP bundle Bilateral pneumonia -Evidenced by CXR -Antibiotic therapy Acute kidney injury -Likely secondary to VMO -02/2020 CR/BUN 1.12/24 -Avoid nephrotoxic medications, renally dose medications -Nephrology consulted, appreciate recommendations -Strict intake and output -Renal ultrasound pending Hyponatremia -Presented with a sodium of 129 -Trend BMP -MIVF Hypochloremia -MIVF -Trend BMP Diabetes mellitus -Hemoglobin A1c pending -SSI -CC diet when appropriate Hypertension -Resume home antihypertensive regimen when appropriate -Blood pressure monitor per protocol Hyperlipidemia -Resume home statin therapy when appropriate DVT/GI prophylaxis: SCDs to bilateral lower extremities while in bed, heparin subcu, PPI Dispo: ICU History Interval history: This is a 60-year-old male with diabetes mellitus, hypertension, hyperlipidemia, chronic renal insufficiency presents to the emergency department on 01/23 with shortness of breath, fevers chills, loss of smell and taste and body aches for the past 3 days via EMS. Per EMS patient's oxygen saturation on room air was 50% and after being placed on nonrebreather it increased 75%. Upon arrival to the emergency department patient was being bagged by EMS. In the emergency room patient was intubated due to severe hypoxia, increased work of breathing and lethargy. Patient was sedated on propofol and fentanyl. Patient presented with fever, tachycardia, tachypnea and acute hypoxic respiratory failure with PNA on CXR meeting Sepsis criteria. Lab work in the emergency department revealed hyponatremia, hypokalemia, hypochloremia, elevated CR/BUN and CXR showed bilateral pneumonia. Patient was admitted to the hospital service as a COVID-19 PUI with consults to infectious disease, nephrology and critical care medicine. Sepsis COVID-19 PUI Bilateral pneumonia Acute hypoxic respiratory failure Acute kidney injury Hyponatremia Hypokalemia Hypochloremia Diabetes mellitus Hypertension Hyperlipidemia Hyperlipidemia Chronic renal insufficiency 01/24/2021 -Patient is intubated and sedated, patient is positive for COVID-19 infection. ID was consulted and put on dexamethasone and remdesivir. Patient has DEISI and nephrology is following. Creatinine stable, patient is urinating. Discussed with nephrology and he is okay with remdesivir. Pulmonary critical care is f ollowing for his vent setting. PEEP of 8 and FiO2 of 85%. Patient was alert and off sedatives. History Interval history: Patient was seen and evaluated this morning Patient was intubated and was off sedatives and was alert PEEP of 8 and FiO2 of 85% Hospitalist Physical - Physical exam Narrative exam: Patient was intubated and on mechanical ventilator The patient appeared well nourished and normally developed. Vital signs as documented. Head exam is unremarkable. No scleral icterus . Neck is without jugular venous distension, thyromegaly, or carotid bruits. Lungs are decreased air entry. Cardiac exam reveals regular rate and Rhythm. Abdominal exam reveals normal bowel sounds, nontender, no organomegaly. Extremities are nonedematous and both femoral and pedal pulses are normal. 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 and alert - Constitutional Vitals: Temp Pulse Resp BP Pulse Ox 99.9 F H 92 H 11 L 106/59 98 01/24/21 08:00 01/24/21 08:25 01/23/21 18:00 01/24/21 08:25 01/24/21 08:25 General appearance: Present: no acute distress HEART Score - HEART Score Risk factors: 1-2 risk factors Troponin: < normal limit - Critical Actions Critical Actions: 0-3 pts:0.9-1.7%risk of adverse cardiac event.Candidate for discharge Results - Labs CBC & Chem 7: 01/24/21 05:05 01/24/21 05:05 Labs: Laboratory Last Values WBC 14.0 K/mm3 (4.5-11.0) H 01/24/21 05:05 RBC 4.31 M/mm3 (3.65-5.03) 01/24/21 05:05 Hgb 14.0 gm/dl (11.8-15.2) 01/24/21 05:05 Hct 41.1 % (35.5-45.6) 01/24/21 05:05 MCV 95 fl (84-94) H 01/24/21 05:05 MCH 33 pg (28-32) H 01/24/21 05:05 MCHC 34 % (32-34) 01/24/21 05:05 RDW 14.2 % (13.2-15.2) 01/24/21 05:05 Plt Count 418 K/mm3 (140-440) 01/24/21 05:05 Lymph % (Auto) 6.6 % (13.4-35.0) L 01/22/21 22:57 Johnson % (Auto) 5.5 % (0.0-7.3) 01/22/21 22:57 Eos % (Auto) 0.0 % (0.0-4.3) 01/22/21 22:57 Baso % (Auto) 0.3 % (0.0-1.8) 01/22/21 22:57 Lymph # (Auto) 0.5 K/mm3 (1.2-5.4) L 01/22/21 22:57 Johnson # (Auto) 0.4 K/mm3 (0.0-0.8) 01/22/21 22:57 Eos # (Auto) 0.0 K/mm3 (0.0-0.4) 01/22/21 22:57 Baso # (Auto) 0.0 K/mm3 (0.0-0.1) 01/22/21 22:57 Add Manual Diff Complete 01/24/21 05:05 Total Counted 100 01/24/21 05:05 Seg Neutrophils % Embedded Software Test Engineer 01/24/21 05:05 Seg Neuts % (Manual) 91.0 % (40.0-70.0) H 01/24/21 05:05 Lymphocytes % (Manual) 4.0 % (13.4-35.0) L 01/24/21 05:05 Monocytes % (Manual) 3.0 % (0.0-7.3) 01/24/21 05:05 Eosinophils % (Manual) 2.0 % (0.0-4.3) 01/24/21 05:05 Nucleated RBC % Not Reportable 01/24/21 05:05 Seg Neutrophils # 6.8 K/mm3 (1.8-7.7) 01/22/21 22:57 Seg Neutrophils # Man 12.7 K/mm3 (1.8-7.7) H 01/24/21 05:05 Band Neutrophils # 0.0 K/mm3 01/24/21 05:05 Lymphocytes # (Manual) 0.6 K/mm3 (1.2-5.4) L 01/24/21 05:05 Abs React Lymphs (Man) 0.0 K/mm3 01/24/21 05:05 Monocytes # (Manual) 0.4 K/mm3 (0.0-0.8) 01/24/21 05:05 Eosinophils # (Manual) 0.3 K/mm3 (0.0-0.4) 01/24/21 05:05 Basophils # (Manual) 0.0 K/mm3 (0.0-0.1) 01/24/21 05:05 Metamyelocytes # 0.0 K/mm3 01/24/21 05:05 Myelocytes # 0.0 K/mm3 01/24/21 05:05 Promyelocytes # 0.0 K/mm3 01/24/21 05:05 Blast Cells # 0.0 K/mm3 01/24/21 05:05 WBC Morphology Not Reportable 01/24/21 05:05 Hypersegmented Neuts Not Reportable 01/24/21 05:05 Hyposegmented Neuts Not Reportable 01/24/21 05:05 Hypogranular Neuts Not Reportable 01/24/21 05:05 Smudge Cells Not Reportable 01/24/21 05:05 Toxic Granulation Not Reportable 01/24/21 05:05 Toxic Vacuolation Not Reportable 01/24/21 05:05 Dohle Bodies Not Reportable 01/24/21 05:05 Pelger-Huet Anomaly Not Reportable 01/24/21 05:05 Fátima Rods Not Reportable 01/24/21 05:05 Platelet Estimate Consistent w auto 01/24/21 05:05 Clumped Platelets Not Reportable 01/24/21 05:05 Plt Clumps, EDTA Not Reportable 01/24/21 05:05 Large Platelets Not Reportable 01/24/21 05:05 Giant Platelets Not Reportable 01/24/21 05:05 Platelet Satelliting Not Reportable 01/24/21 05:05 Plt Morphology Comment Not Reportable 01/24/21 05:05 RBC Morphology Not Reportable 01/24/21 05:05 Dimorphic RBCs Not Reportable 01/24/21 05:05 Polychromasia Few 01/24/21 05:05 Hypochromasia Not Reportable 01/24/21 05:05 Poikilocytosis Not Reportable 01/24/21 05:05 Anisocytosis Not Reportable 01/24/21 05:05 Microcytosis Not Reportable 01/24/21 05:05 Macrocytosis Not Reportable 01/24/21 05:05 Spherocytes Not Reportable 01/24/21 05:05 Pappenheimer Bodies Not Reportable 01/24/21 05:05 Sickle Cells Not Reportable 01/24/21 05:05 Target Cells Not Reportable 01/24/21 05:05 Tear Drop Cells Not Reportable 01/24/21 05:05 Ovalocytes Not Reportable 01/24/21 05:05 Helmet Cells Not Reportable 01/24/21 05:05 [place] Bodies Not Reportable 01/24/21 05:05 [place] Rings Not Reportable 01/24/21 05:05 [place] Cells Not Reportable 01/24/21 05:05 Bite Cells Not Reportable 01/24/21 05:05 Crenated Cell Not Reportable 01/24/21 05:05 Elliptocytes Not Reportable 01/24/21 05:05 Acanthocytes (Spur) Not Reportable 01/24/21 05:05 Rouleaux Few 01/24/21 05:05 Hemoglobin C Crystals Not Reportable 01/24/21 05:05 Schistocytes Not Reportable 01/24/21 05:05 Malaria parasites Not Reportable 01/24/21 05:05 [place] Bodies Not Reportable 01/24/21 05:05 Hem Pathologist Commnt No 01/24/21 05:05 D-Dimer 6159.48 ng/mlDDU (0-234) H 01/24/21 05:05 ABG pH 7.372 pH Units (7.350-7.450) 01/23/21 Unknown ABG pCO2 39.5 mm Hg 01/23/21 Unknown ABG pO2 165.4 mm Hg (80.0-90.0) H 01/23/21 Unknown ABG HCO3 22.4 mmol/L (20.0-26.0) 01/23/21 Unknown ABG O2 Saturation 99.0 % (95.0-99.0) 01/23/21 Unknown ABG O2 Content 19.6 (0.0-44) 01/23/21 Unknown ABG Base Excess -2.5 mmol/L (-2.0-3.0) L 01/23/21 Unknown ABG Hemoglobin 14.2 gm/dl (14.0-18.0) 01/23/21 Unknown ABG Carboxyhemoglobin 1.7 % (0.0-5.0) 01/23/21 Unknown ABG Methemoglobin 0.5 % (0.0-1.5) 01/23/21 Unknown Oxyhemoglobin 96.8 % (95.0-99.0) 01/23/21 Unknown FiO2 100 % 01/23/21 Unknown Sodium 132 mmol/L (137-145) L 01/24/21 05:05 Potassium 4.2 mmol/L (3.6-5.0) 01/24/21 05:05 Chloride 93.1 mmol/L (98-107) L 01/24/21 05:05 Carbon Dioxide 21 mmol/L (22-30) L 01/24/21 05:05 Anion Gap 22 mmol/L 01/24/21 05:05 BUN 57 mg/dL (9-20) H 01/24/21 05:05 Creatinine 3.7 mg/dL (0.8-1.3) H 01/24/21 05:05 Estimated GFR 20 ml/min 01/24/21 05:05 BUN/Creatinine Ratio 15 % 01/24/21 05:05 Glucose 133 mg/dL (75-100) H 01/24/21 05:05 POC Glucose 136 mg/dL (70-105) H 01/24/21 05:34 Lactic Acid 2.20 mmol/L (0.7-2.0) H* 01/24/21 05:05 Calcium 7.7 mg/dL (8.4-10.2) L 01/24/21 05:05 Ferritin 1178.0 ng/mL (30.0-300.0) H 01/24/21 05:05 Total Bilirubin 0.80 mg/dL (0.1-1.2) 01/24/21 05:05 AST 39 units/L (5-40) 01/24/21 05:05 ALT 38 units/L (7-56) 01/24/21 05:05 Alkaline Phosphatase 67 units/L (35-129) 01/24/21 05:05 Lactate Dehydrogenase 658 units/L (91-180) H 01/24/21 05:05 C-Reactive Protein 33.20 mg/dL (0.00-1.30) H 01/24/21 05:05 Total Protein 8.1 g/dL (6.3-8.2) 01/24/21 05:05 Albumin 2.4 g/dL (3.9-5) L 01/24/21 05:05 Albumin/Globulin Ratio 0.4 % 01/24/21 05:05 Procalcitonin 0.92 ng/mL (<0.15) 01/22/21 22:57 Urine Color Nehal (Yellow) 01/22/21 22:39 Urine Turbidity Cloudy (Clear) 01/22/21 22:39 Urine pH 5.0 (5.0-7.0) 01/22/21 22:39 Ur Specific [place] 1.017 (1.003-1.030) 01/22/21 22:39 Urine Protein 100 mg/dl mg/dL (Negative) 01/22/21 22:39 Urine Glucose (UA) Neg mg/dL (Negative) 01/22/21 22:39 Urine Ketones Neg mg/dL (Negative) 01/22/21 22:39 Urine Blood Mod (Negative) 01/22/21 22:39 Urine Nitrite Neg (Negative) 01/22/21 22:39 Urine Bilirubin Neg (Negative) 01/22/21 22:39 Urine Urobilinogen 2.0 mg/dL (<2.0) 01/22/21 22:39 Ur Leukocyte Esterase Mod (Negative) 01/22/21 22:39 Urine WBC (Auto) < 1.0 /HPF (0.0-6.0) 01/22/21 22:39 Urine RBC (Auto) < 1.0 /HPF (0.0-6.0) 01/22/21 22:39 U Epithel Cells (Auto) < 1.0 /HPF (0-13.0) 01/22/21 22:39 Urine Creatinine 301.2 mg/dL (0.1-20.0) H 01/22/21 22:39 Urine Sodium 28 mmol/L 01/22/21 22:39 Coronavirus (PCR) Positive (Negative) A 01/23/21 08:41 Microbiology: Microbiology 01/22/21 22:57 Peripheral/Venous Blood Culture - Preliminary NO GROWTH AFTER 24 HOURS 01/22/21 22:52 Peripheral/Venous Blood Culture - Preliminary NO GROWTH AFTER 24 HOURS Black/IV: Voiding Method Indwelling Catheter Active Medications - Current Medications Current Medications: Generic Name Dose Route Start Last Admin Trade Name Freq PRN Reason Stop Dose Admin Acetaminophen 650 mg 01/23/21 02:25 Acetaminophen 650 Mg Rect Supp [place] Q4H PRN Pain, Mild (1-3) Dexamethasone 6 mg 01/23/21 22:00 01/24/21 09:31 Dexamethasone 4 Mg/Ml Vial IV 02/01/21 22:01 6 mg BID CECE Administration Famotidine 20 mg 01/24/21 10:00 Famotidine 20 Mg/2 Ml Inj IV DAILY CECE Fentanyl 50 mcg 01/22/21 22:39 Fentanyl 100 Mcg/2 Ml Inj IV Q10MIN PRN ANALGESIA Heparin Sodium (Porcine) 5,000 unit 01/24/21 14:00 Heparin 5,000 Unit/1 Ml Vial SUB-Q Q8HR CECE Hydrophilic Ointment 1 applic 01/22/21 22:39 Lip Therapy Vaseline TP Q2HR PRN Dry Lips Fentanyl Citrate 2,000 mcg in 100 mls @ 6.124 mls/hr 01/22/21 23:00 01/24/21 09:29 Fentanyl Drip Premix IV 2 mcg/kg/hr TITR CECE 12.247 mls/hr Titration Protocol 1 MCG/KG/HR Propofol 1,000 mg in 100 mls @ 3.674 mls/hr 01/22/21 23:45 01/24/21 09:35 Diprivan 10 Mg/Ml IV 5 mcg/kg/min TITR CECE 3.674 mls/hr Titration Protocol 5 MCG/KG/MIN Azithromycin 500 mg in 250 mls @ 250 mls/hr 01/23/21 22:00 01/23/21 23:22 Zithromax/Ns IV 250 mls/hr Q24H CECE Administration Sodium Chloride 1,000 mls @ 50 mls/hr 01/23/21 08:00 01/23/21 21:07 Nacl 0.9% 1000 Ml IV 50 mls/hr DIRECT CECE Administration Ceftriaxone Sodium 2 gm in 100 mls @ 200 mls/hr 01/23/21 22:00 01/23/21 22:08 Rocephin/Ns 2 Gm/100 Ml IV 200 mls/hr Q24H CECE Administration Protocol REMDESIVIR 100 mg/ Sodium 250 mls @ 500 mls/hr 01/24/21 21:00 Chloride IV 01/27/21 21:29 Q24HR@2100 [facility] Multi-Ingred Cream/Lotion/Oil/Oint 1 applic 01/22/21 22:39 Mineral Oil/Petrolatum, White Ophth Oint 3.5 Gm OU Q4HR PRN Dry Eye(s) Ondansetron HCl 4 mg 01/23/21 02:17 Ondansetron 4 Mg/2 Ml Inj IV Q8H PRN Nausea And Vomiting Sodium Chloride 50 ml 01/23/21 21:00 01/23/21 21:13 Sodium Chloride 0.9% 50 Ml Ivpb IV 01/27/21 21:01 Not Given Q24HR@2100 [facility]
[2021-01-24] MEDS: fentaNYL DRIP Premix 2,000 MCG/100 ML BAG IV SCH ×3 (10:15→21:52)
--- NOTE | 2021-01-24 11:40 | Progress Note ---
Assessment and Plan 60 y/o male with ARDS secondary most likely to COVID 19 pneumonia. 01/24/21: Continue BID steroids. No abg done this am but able to wean FiO2. Will obtain ABG in the am. Hold on proning for right now. Renal following, would like to diurese but they are given fluids for deisi. Agree with ID assessment and note. Guarded prognosis. 1. Increase steroids to BID given size 2. Check with ID to see if he is a candidate for remdesivir or any other experiemental therapy 3. Hold on proning for right now 4. Renal consulted and giving IVF's currently Guarded prognosis. CCT 31 minutes. Subjective Date of service: 01/24/21 Principal diagnosis: DEISI Interval history: Patient down to 85% and sats are in the high 90's. Currently on 12 of PEEP. No abg this AM. Patient is awake. Had diprovan and Fent available. Objective Vital Signs - 12hr 01/23/21 01/23/21 01/24/21 23:33 23:36 00:00 Temperature 98.9 F Pulse Rate 83 83 Blood Pressure 107/59 O2 Sat by Pulse 95 Oximetry 01/24/21 01/24/21 01/24/21 03:02 04:00 08:00 Temperature 98.8 F 99.9 F H Pulse Rate 87 Blood Pressure 103/67 O2 Sat by Pulse 96 Oximetry 01/24/21 08:25 Temperature Pulse Rate 92 H Blood Pressure 106/59 O2 Sat by Pulse 98 Oximetry CBC and BMP: 01/24/21 05:05 01/24/21 05:05 ABG, PT/INR, D-dimer: ABG ABG pH 7.372 pH Units (7.350-7.450) 01/23/21 Unknown ABG pCO2 39.5 mm Hg 01/23/21 Unknown ABG pO2 165.4 mm Hg (80.0-90.0) H 01/23/21 Unknown ABG O2 Saturation 99.0 % (95.0-99.0) 01/23/21 Unknown PT/INR, D-dimer D-Dimer 6159.48 ng/mlDDU (0-234) H 01/24/21 05:05 Abnormal lab findings: Abnormal Labs 01/22/21 01/22/21 01/22/21 22:39 22:57 22:57 WBC MCV MCH Lymph % (Auto) 6.6 L Lymph # (Auto) 0.5 L Seg Neutrophils % 87.6 H Seg Neuts % (Manual) Lymphocytes % (Manual) Seg Neutrophils # Man Lymphocytes # (Manual) D-Dimer ABG pO2 ABG Base Excess Sodium 129 L Potassium 3.4 L Chloride 90.4 L Carbon Dioxide BUN 34 H Creatinine 1.5 H Glucose 146 H POC Glucose Lactic Acid Calcium 7.8 L Ferritin AST 75 H ALT 57 H Lactate Dehydrogenase C-Reactive Protein Albumin 2.9 L Urine Creatinine 301.2 H Coronavirus (PCR) 01/22/21 01/22/21 01/22/21 22:57 22:57 22:57 WBC MCV MCH Lymph % (Auto) Lymph # (Auto) Seg Neutrophils % Seg Neuts % (Manual) Lymphocytes % (Manual) Seg Neutrophils # Man Lymphocytes # (Manual) D-Dimer 1173.89 H ABG pO2 ABG Base Excess Sodium Potassium Chloride Carbon Dioxide BUN Creatinine Glucose 149 H POC Glucose Lactic Acid 2.10 H* Calcium Ferritin AST ALT Lactate Dehydrogenase 685 H C-Reactive Protein 30.40 H Albumin Urine Creatinine Coronavirus (PCR) 01/22/21 01/23/21 01/23/21 22:57 08:41 10:01 WBC MCV MCH Lymph % (Auto) Lymph # (Auto) Seg Neutrophils % Seg Neuts % (Manual) Lymphocytes % (Manual) Seg Neutrophils # Man Lymphocytes # (Manual) D-Dimer ABG pO2 ABG Base Excess Sodium 131 L Potassium Chloride 88.7 L Carbon Dioxide 18 L BUN 36 H Creatinine 1.6 H Glucose 147 H POC Glucose Lactic Acid Calcium 7.5 L Ferritin 1207.0 H AST ALT Lactate Dehydrogenase C-Reactive Protein Albumin Urine Creatinine Coronavirus (PCR) Positive A 01/23/21 01/23/21 01/24/21 20:49 Unknown 00:10 WBC MCV MCH Lymph % (Auto) Lymph # (Auto) Seg Neutrophils % Seg Neuts % (Manual) Lymphocytes % (Manual) Seg Neutrophils # Man Lymphocytes # (Manual) D-Dimer ABG pO2 165.4 H ABG Base Excess -2.5 L Sodium 130 L Potassium Chloride 91.0 L Carbon Dioxide 20 L BUN 52 H Creatinine 3.8 H D Glucose 150 H POC Glucose 125 H Lactic Acid Calcium 8.0 L Ferritin AST 42 H ALT Lactate Dehydrogenase C-Reactive Protein Albumin 2.4 L Urine Creatinine Coronavirus (PCR) 01/24/21 01/24/21 01/24/21 05:05 05:05 05:05 WBC 14.0 H MCV 95 H MCH 33 H Lymph % (Auto) Lymph # (Auto) Seg Neutrophils % Seg Neuts % (Manual) 91.0 H Lymphocytes % (Manual) 4.0 L Seg Neutrophils # Man 12.7 H Lymphocytes # (Manual) 0.6 L D-Dimer 6159.48 H ABG pO2 ABG Base Excess Sodium Potassium Chloride Carbon Dioxide BUN Creatinine Glucose POC Glucose Lactic Acid Calcium Ferritin 1178.0 H AST ALT Lactate Dehydrogenase C-Reactive Protein Albumin Urine Creatinine Coronavirus (PCR) 01/24/21 01/24/21 01/24/21 05:05 05:05 05:05 WBC MCV MCH Lymph % (Auto) Lymph # (Auto) Seg Neutrophils % Seg Neuts % (Manual) Lymphocytes % (Manual) Seg Neutrophils # Man Lymphocytes # (Manual) D-Dimer ABG pO2 ABG Base Excess Sodium 132 L Potassium Chloride 93.1 L Carbon Dioxide 21 L BUN 57 H Creatinine 3.7 H Glucose 133 H POC Glucose Lactic Acid 2.20 H* Calcium 7.7 L Ferritin AST ALT Lactate Dehydrogenase 658 H C-Reactive Protein 33.20 H Albumin 2.4 L Urine Creatinine Coronavirus (PCR) 01/24/21 05:34 WBC MCV MCH Lymph % (Auto) Lymph # (Auto) Seg Neutrophils % Seg Neuts % (Manual) Lymphocytes % (Manual) Seg Neutrophils # Man Lymphocytes # (Manual) D-Dimer ABG pO2 ABG Base Excess Sodium Potassium Chloride Carbon Dioxide BUN Creatinine Glucose POC Glucose 136 H Lactic Acid Calcium Ferritin AST ALT Lactate Dehydrogenase C-Reactive Protein Albumin Urine Creatinine Coronavirus (PCR)
[2021-01-24] MEDS: HEPARIN 5,000 UNIT/1 ML VIAL SUB-Q SCH ×2 (13:30→21:41)
[2021-01-24] MEDS: FAMOTIDINE 20 MG/2 ML INJ IV SCH (13:30)
[2021-01-24] MEDS: ACETAMINOPHEN 325 MG/10.15 ML ORAL LIQD UNIT DOSE FEEDTUBE PRN (13:45)
[2021-01-24] MEDS: SODIUM CHLORIDE 0.9% 1000 ML 1,000 ML IV SCH (17:10)
[2021-01-24] MEDS: AZITHROMYCIN/NS 500 MG/250 ML 500 MG/250 ML BAG IV SCH (21:45)
[2021-01-24] MEDS: cefTRIAXone/NS 2 GM/100 ML 2 GM/100 ML BAG IV SCH (22:46)
[2021-01-25] MEDS: SODIUM CHLORIDE 0.9% 50 ML IVPB IV SCH
[2021-01-25] MEDS: ACETAMINOPHEN 325 MG/10.15 ML ORAL LIQD UNIT DOSE FEEDTUBE PRN (00:03)
[2021-01-25] MEDS: fentaNYL DRIP Premix 2,000 MCG/100 ML BAG IV SCH ×4 (03:18→19:19)
--- NOTE | 2021-01-25 03:59 | XRay Report ---
CHEST 1 VIEW INDICATION: follow up respiratory failure COMPARISON: One day prior. FINDINGS: Support devices: Unchanged. Heart: Stable. Lungs/Pleura: Bilateral pleural-parenchymal disease persists without significant interval change. IMPRESSION: 1. No significant change. Signer Name: Lavon Padilla MD Signed: 01/25/2021 3:55 AM Workstation Name: [id number]
[2021-01-25] MEDS: HEPARIN 5,000 UNIT/1 ML VIAL SUB-Q SCH ×3 (05:46→21:21)
[2021-01-25 05:54] LABS: Hematocrit 37.6 % (35.5-45.6); Mean Corpuscular HGB Conc 35 % (32-34); Mean Corpuscular Volume 95 fl (84-94); Platelet Count 369 K/mm3 (140-440); Red Blood Count 3.95 M/mm3 (3.65-5.03); Red Cell Distribution Width 14.4 % (13.2-15.2)
[2021-01-25 06:56] LABS: Albumin 2.6 g/dL (3.9-5); Calcium 7.5 mg/dL (8.4-10.2)
[2021-01-25 07:10] LABS: Anisocytosis 1+; Platelet Estimate Consistent w Auto; Total Cells Counted 100
--- NOTE | 2021-01-25 07:57 | Progress Note ---
Assessment and Plan Hypoxic resp failure possible COVID-19 PNA Acute renal failure Hyponatremia Cr is trending down, non-oliguric no indication for POLICEMAN cont gentle IV hydration Renally dose meds strict I&O Carlton Pitts MD [phone] Subjective Date of service: 01/25/21 Principal diagnosis: DEISI Interval history: fif not receive Remdesivir because it is out of stock Objective - Vital Signs Vital signs: Vital Signs - 12hr 01/24/21 01/24/21 01/24/21 20:00 23:30 23:36 Temperature 101.4 F H 102.2 F H Pulse Rate 92 H 96 H Blood Pressure 99/61 O2 Sat by Pulse 93 Oximetry 01/25/21 01/25/21 01/25/21 00:00 03:40 04:00 Temperature 97.9 F Pulse Rate 94 H 81 Blood Pressure 114/72 O2 Sat by Pulse 92 Oximetry 01/25/21 07:43 Temperature Pulse Rate 92 H Blood Pressure 125/67 O2 Sat by Pulse 94 Oximetry - Lab 01/25/21 05:40 01/25/21 05:40 Most recent lab results ABG pH 7.373 (7.320-7.450) 01/25/21 04:15 ABG pCO2 39.5 mm Hg 01/23/21 Unknown ABG pO2 165.4 mm Hg (80.0-90.0) H 01/23/21 Unknown ABG HCO3 22.4 mmol/L (20.0-26.0) 01/23/21 Unknown ABG O2 Saturation 90.1 (0-100) 01/25/21 04:15 Calcium 7.5 mg/dL (8.4-10.2) L 01/25/21 05:40 Urine Creatinine 301.2 mg/dL (0.1-20.0) H 01/22/21 22:39 Urine Sodium 28 mmol/L 01/22/21 22:39 Medications & Allergies - Medications Allergies/Adverse Reactions: Allergies No Known Allergies Allergy (Unverified 03/12/20 13:41) Home Medications: Home Medications Medication Instructions Recorded Confirmed Last Taken Type Clindamycin [Clindamycin CAP] 300 mg PO Q8H #21 cap 03/12/20 Unknown Rx Insulin NPH/Regular [Novolin 70/30] 18 unit SUB-Q TIDAC #1 vial 03/12/20 Unknown Rx Syringe-Needle,Insulin,0.5 ml 1 box MC TID #1 box 03/12/20 Unknown Rx [Insulin Syringe/Needle 0.5 ML] Active Medications: Generic Name Dose Route Start Last Admin Trade Name Freq PRN Reason Stop Dose Admin Acetaminophen 650 mg 01/23/21 02:25 Acetaminophen 650 Mg Rect Supp [place] Q4H PRN Pain, Mild (1-3) Acetaminophen 650 mg 01/24/21 12:58 01/25/21 00:03 Acetaminophen 325 Mg/10.15 Ml Oral Liqd Unit Dose FEEDTUBE 650 mg Q6H PRN Administration Pain, Mild (1-3) Dexamethasone 6 mg 01/23/21 22:00 01/24/21 21:41 Dexamethasone 4 Mg/Ml Vial IV 02/01/21 22:01 6 mg BID CECE Administration Famotidine 20 mg 01/24/21 10:00 01/24/21 13:30 Famotidine 20 Mg/2 Ml Inj IV 20 mg DAILY CECE Administration Fentanyl 50 mcg 01/22/21 22:39 Fentanyl 100 Mcg/2 Ml Inj IV Q10MIN PRN ANALGESIA Heparin Sodium (Porcine) 5,000 unit 01/24/21 14:00 01/25/21 05:46 Heparin 5,000 Unit/1 Ml Vial SUB-Q 5,000 unit Q8HR CECE Administration Hydrophilic Ointment 1 applic 01/22/21 22:39 Lip Therapy Vaseline TP Q2HR PRN Dry Lips Fentanyl Citrate 2,000 mcg in 100 mls @ 6.124 mls/hr 01/22/21 23:00 01/25/21 03:18 Fentanyl Drip Premix IV 3 mcg/kg/hr TITR CECE 18.371 mls/hr Administration Protocol 1 MCG/KG/HR Propofol 1,000 mg in 100 mls @ 3.674 mls/hr 01/22/21 23:45 01/25/21 03:14 Diprivan 10 Mg/Ml IV 10 mcg/kg/min TITR CECE 7.348 mls/hr Administration Protocol 5 MCG/KG/MIN Azithromycin 500 mg in 250 mls @ 250 mls/hr 01/23/21 22:00 01/24/21 21:45 Zithromax/Ns IV 250 mls/hr Q24H CECE Administration Sodium Chloride 1,000 mls @ 50 mls/hr 01/23/21 08:00 01/24/21 17:10 Nacl 0.9% 1000 Ml IV 50 mls/hr DIRECT CECE Administration Ceftriaxone Sodium 2 gm in 100 mls @ 200 mls/hr 01/23/21 22:00 01/24/21 22:46 Rocephin/Ns 2 Gm/100 Ml IV 200 mls/hr Q24H CECE Administration Protocol REMDESIVIR 100 mg/ Sodium 250 mls @ 500 mls/hr 01/24/21 21:00 Chloride IV 01/28/21 21:29 Q24HR@2100 CECE Multi-Ingred Cream/Lotion/Oil/Oint 1 applic 01/22/21 22:39 Mineral Oil/Petrolatum, White Ophth Oint 3.5 Gm OU Q4HR PRN Dry Eye(s) Ondansetron HCl 4 mg 01/23/21 02:17 Ondansetron 4 Mg/2 Ml Inj IV Q8H PRN Nausea And Vomiting Sodium Chloride 50 ml 01/23/21 21:00 01/25/21 00:00 Sodium Chloride 0.9% 50 Ml Ivpb IV 01/27/21 21:01 Not Given Q24HR@2100 CECE
[2021-01-25] MEDS: dexAMETHasone 4 MG/ML VIAL IV SCH ×2 (09:09→21:21)
[2021-01-25] MEDS: FAMOTIDINE 20 MG/2 ML INJ IV SCH (09:10)
--- NOTE | 2021-01-25 09:17 | Progress Note ---
Assessment and Plan Assessment and plan: Sepsis -Presented with low-grade fever, tachycardia, tachypnea, acute respiratory failure, pneumonia on CXR and possible acute kidney injury -Antibiotic therapy -Infectious disease consulted, appreciate recommendations -01/22 blood cultures x2 pending COVID-19 PUI -01/22 COVID-19 PCR pending -Contact/droplet precautions -Antibiotics, steroid -Infectious disease consulted Acute hypoxic respiratory failure -CCM consulted, appreciate recommendations -Wean mechanical ventilation as tolerated -Pulmonary hygiene -SPO2 monitoring -VAP bundle Bilateral pneumonia -Evidenced by CXR -Antibiotic therapy Acute kidney injury -Likely secondary to VMO -02/2020 CR/BUN 1.12/24 -Avoid nephrotoxic medications, renally dose medications -Nephrology consulted, appreciate recommendations -Strict intake and output -Renal ultrasound pending Hyponatremia -Presented with a sodium of 129 -Trend BMP -MIVF Hypochloremia -MIVF -Trend BMP Diabetes mellitus -Hemoglobin A1c pending -SSI -CC diet when appropriate Hypertension -Resume home antihypertensive regimen when appropriate -Blood pressure monitor per protocol Hyperlipidemia -Resume home statin therapy when appropriate DVT/GI prophylaxis: SCDs to bilateral lower extremities while in bed, heparin subcu, PPI Dispo: ICU History Interval history: This is a 60-year-old male with diabetes mellitus, hypertension, hyperlipidemia, chronic renal insufficiency presents to the emergency department on 01/23 with shortness of breath, fevers chills, loss of smell and taste and body aches for the past 3 days via EMS. Per EMS patient's oxygen saturation on room air was 50% and after being placed on nonrebreather it increased 75%. Upon arrival to the emergency department patient was being bagged by EMS. In the emergency room patient was intubated due to severe hypoxia, increased work of breathing and lethargy. Patient was sedated on propofol and fentanyl. Patient presented with fever, tachycardia, tachypnea and acute hypoxic respiratory failure with PNA on CXR meeting Sepsis criteria. Lab work in the emergency department revealed hyponatremia, hypokalemia, hypochloremia, elevated CR/BUN and CXR showed bilateral pneumonia. Patient was admitted to the hospital service as a COVID-19 PUI with consults to infectious disease, nephrology and critical care medicine. Sepsis COVID-19 PUI Bilateral pneumonia Acute hypoxic respiratory failure Acute kidney injury Hyponatremia Hypokalemia Hypochloremia Diabetes mellitus Hypertension Hyperlipidemia Hyperlipidemia Chronic renal insufficiency 01/24/2021 -Patient is intubated and sedated, patient is positive for COVID-19 infection. ID was consulted and put on dexamethasone and remdesivir. Patient has DEISI and nephrology is following. Creatinine stable, patient is urinating. Discussed with nephrology and he is okay with remdesivir. Pulmonary critical care is f ollowing for his vent setting. PEEP of 8 and FiO2 of 85%. Patient was alert and off sedatives. 01/25/2021; patient is intubated and on mechanical ventilation. Continue with treatment of Covid. Nephrology and ID is following. Pulmonary is following for vent management. The high probability of a clinically significant, sudden or life threatening deterioration of the [respiratory] system(s) required my full and direct attention, intervention and personal management. The aggregate critical care time was [32] minutes. This time is in addition to time spent performing reported procedures but includes the following: [x] Data Review and interpretation [x] Patient assessment and monitoring of vital signs [x] Documentation [x] Medication orders and management History Interval history: Patient was seen and evaluated this morning Patient was intubated and was off sedatives and was alert PEEP of 8 and FiO2 of 85% Hospitalist Physical - Physical exam Narrative exam: Patient was intubated and on mechanical ventilator The patient appeared well nourished and normally developed. Vital signs as documented. Head exam is unremarkable. No scleral icterus . Neck is without jugular venous distension, thyromegaly, or carotid bruits. Lungs are decreased air entry. Cardiac exam reveals regular rate and Rhythm. Abdominal exam reveals normal bowel sounds, nontender, no organomegaly. Extremities are nonedematous and both femoral and pedal pulses are normal. 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 - Constitutional Vitals: Temp Pulse Resp BP Pulse Ox 98.4 F 94 H 16 125/67 90 01/25/21 08:50 01/25/21 08:00 01/25/21 08:00 01/25/21 07:43 01/25/21 08:00 General appearance: Present: no acute distress HEART Score - HEART Score Risk factors: 1-2 risk factors Troponin: < normal limit - Critical Actions Critical Actions: 0-3 pts:0.9-1.7%risk of adverse cardiac event.Candidate for discharge Results - Labs CBC & Chem 7: 03/28/21 05:40 01/25/21 05:40 Labs: Laboratory Last Values WBC 8.2 K/mm3 (4.5-11.0) 01/25/21 05:40 RBC 3.95 M/mm3 (3.65-5.03) 01/25/21 05:40 Hgb 13.0 gm/dl (11.8-15.2) 01/25/21 05:40 Hct 37.6 % (35.5-45.6) 01/25/21 05:40 MCV 95 fl (84-94) H 01/25/21 05:40 MCH 33 pg (28-32) H 01/25/21 05:40 MCHC 35 % (32-34) H 01/25/21 05:40 RDW 14.4 % (13.2-15.2) 01/25/21 05:40 Plt Count 369 K/mm3 (140-440) 01/25/21 05:40 Lymph % (Auto) 6.6 % (13.4-35.0) L 01/22/21 22:57 [place] % (Auto) 5.5 % (0.0-7.3) 01/22/21 22:57 Eos % (Auto) 0.0 % (0.0-4.3) 01/22/21 22:57 Baso % (Auto) 0.3 % (0.0-1.8) 01/22/21 22:57 Lymph # (Auto) 0.5 K/mm3 (1.2-5.4) L 01/22/21 22:57 [place] # (Auto) 0.4 K/mm3 (0.0-0.8) 01/22/21 22:57 Eos # (Auto) 0.0 K/mm3 (0.0-0.4) 01/22/21 22:57 Baso # (Auto) 0.0 K/mm3 (0.0-0.1) 01/22/21 22:57 Add Manual Diff Complete 01/25/21 05:40 Total Counted 100 01/25/21 05:40 Seg Neutrophils % Fire Watchman 01/25/21 05:40 Seg Neuts % (Manual) 95.0 % (40.0-70.0) H 01/25/21 05:40 Lymphocytes % (Manual) 3.0 % (13.4-35.0) L 01/25/21 05:40 Monocytes % (Manual) 2.0 % (0.0-7.3) 01/25/21 05:40 Eosinophils % (Manual) 2.0 % (0.0-4.3) 01/24/21 05:05 Nucleated RBC % Not Reportable 01/25/21 05:40 Seg Neutrophils # 6.8 K/mm3 (1.8-7.7) 01/22/21 22:57 Seg Neutrophils # Man 7.8 K/mm3 (1.8-7.7) H 01/25/21 05:40 Band Neutrophils # 0.0 K/mm3 01/25/21 05:40 Lymphocytes # (Manual) 0.2 K/mm3 (1.2-5.4) L 01/25/21 05:40 Abs React Lymphs (Man) 0.0 K/mm3 01/25/21 05:40 Monocytes # (Manual) 0.2 K/mm3 (0.0-0.8) 01/25/21 05:40 Eosinophils # (Manual) 0.0 K/mm3 (0.0-0.4) 01/25/21 05:40 Basophils # (Manual) 0.0 K/mm3 (0.0-0.1) 01/25/21 05:40 Metamyelocytes # 0.0 K/mm3 01/25/21 05:40 Myelocytes # 0.0 K/mm3 01/25/21 05:40 Promyelocytes # 0.0 K/mm3 01/25/21 05:40 Blast Cells # 0.0 K/mm3 01/25/21 05:40 WBC Morphology Not Reportable 01/25/21 05:40 Hypersegmented Neuts Not Reportable 01/25/21 05:40 Hyposegmented Neuts Not Reportable 01/25/21 05:40 Hypogranular Neuts Not Reportable 01/25/21 05:40 Smudge Cells Not Reportable 01/25/21 05:40 Toxic Granulation Not Reportable 01/25/21 05:40 Toxic Vacuolation Not Reportable 01/25/21 05:40 Dohle Bodies Not Reportable 01/25/21 05:40 Pelger-Huet Anomaly Not Reportable 01/25/21 05:40 Fátima Rods Not Reportable 01/25/21 05:40 Platelet Estimate Consistent w auto 01/25/21 05:40 Clumped Platelets Not Reportable 01/25/21 05:40 Plt Clumps, EDTA Not Reportable 01/25/21 05:40 Large Platelets Not Reportable 01/25/21 05:40 Giant Platelets Not Reportable 01/25/21 05:40 Platelet Satelliting Not Reportable 01/25/21 05:40 Plt Morphology Comment Not Reportable 01/25/21 05:40 RBC Morphology Not Reportable 01/25/21 05:40 Dimorphic RBCs Not Reportable 01/25/21 05:40 Polychromasia Not Reportable 01/25/21 05:40 Hypochromasia Not Reportable 01/25/21 05:40 Poikilocytosis Not Reportable 01/25/21 05:40 Anisocytosis 1+ 01/25/21 05:40 Microcytosis Not Reportable 01/25/21 05:40 Macrocytosis Not Reportable 01/25/21 05:40 Spherocytes Not Reportable 01/25/21 05:40 Pappenheimer Bodies Not Reportable 01/25/21 05:40 Sickle Cells Not Reportable 01/25/21 05:40 Target Cells Not Reportable 01/25/21 05:40 Tear Drop Cells Not Reportable 01/25/21 05:40 Ovalocytes Not Reportable 01/25/21 05:40 Helmet Cells Not Reportable 01/25/21 05:40 Potter-Stanford Bodies Not Reportable 01/25/21 05:40 Angela Rings Not Reportable 01/25/21 05:40 Moodus Cells Not Reportable 01/25/21 05:40 Bite Cells Not Reportable 01/25/21 05:40 Crenated Cell Not Reportable 01/25/21 05:40 Elliptocytes Not Reportable 01/25/21 05:40 Acanthocytes (Spur) Not Reportable 01/25/21 05:40 Rouleaux Not Reportable 01/25/21 05:40 Hemoglobin C Crystals Not Reportable 01/25/21 05:40 Schistocytes Not Reportable 01/25/21 05:40 Malaria parasites Not Reportable 01/25/21 05:40 Aquiles Bodies Not Reportable 01/25/21 05:40 Hem Pathologist Commnt No 01/25/21 05:40 D-Dimer 6159.48 ng/mlDDU (0-234) H 01/24/21 05:05 ABG pH 7.373 (7.320-7.450) 01/25/21 04:15 POC ABG pCO2 39.5 mmHg (32.0-48.0) 01/25/21 04:15 ABG pCO2 39.5 mm Hg 01/23/21 Unknown POC ABG pO2 63.2 mmHg (83-108) L 01/25/21 04:15 ABG pO2 165.4 mm Hg (80.0-90.0) H 01/23/21 Unknown POC ABG HCO3 22.5 01/25/21 04:15 ABG HCO3 22.4 mmol/L (20.0-26.0) 01/23/21 Unknown ABG O2 Saturation 90.1 (0-100) 01/25/21 04:15 ABG O2 Content 19.6 (0.0-44) 01/23/21 Unknown POC ABG Base Excess -2.5 01/25/21 04:15 ABG Base Excess -2.5 mmol/L (-2.0-3.0) L 01/23/21 Unknown ABG Hemoglobin 13.0 (12.0-17.5) 01/25/21 04:15 ABG Oxyhemoglobin 89.6 (94-98) L 01/25/21 04:15 ABG Carboxyhemoglobin 1.7 % (0.0-5.0) 01/23/21 Unknown ABG Methemoglobin 0.3 (0.0-1.5) 01/25/21 04:15 ABG Sodium 137.1 mmol/L (136.0-145.0) 01/25/21 04:15 ABG Potassium 3.9 mmol/L (3.40-4.50) 01/25/21 04:15 ABG Chloride 103.0 mmol/L (98-107) 01/25/21 04:15 ABG Glucose 165 mg/dL (65-95) H 01/25/21 04:15 Oxyhemoglobin 96.8 % (95.0-99.0) 01/23/21 Unknown Carboxyhemoglobin 0.3 (0.5-1.5) L 01/25/21 04:15 FiO2 100 % 01/23/21 Unknown FiO2 % 75 01/25/21 04:15 Sodium 143 mmol/L (137-145) D 01/25/21 05:40 Potassium 4.4 mmol/L (3.6-5.0) 01/25/21 05:40 Chloride 103.1 mmol/L (98-107) 01/25/21 05:40 Carbon Dioxide 24 mmol/L (22-30) 01/25/21 05:40 Anion Gap 20 mmol/L 01/25/21 05:40 BUN 67 mg/dL (9-20) H 01/25/21 05:40 Creatinine 3.4 mg/dL (0.8-1.3) H 01/25/21 05:40 Estimated GFR 22 ml/min 01/25/21 05:40 BUN/Creatinine Ratio 20 % 01/25/21 05:40 Glucose 153 mg/dL (75-100) H 01/25/21 05:40 POC Glucose 140 mg/dL (70-105) H 01/25/21 05:59 Lactic Acid 1.90 mmol/L (0.7-2.0) 01/24/21 14:38 Calcium 7.5 mg/dL (8.4-10.2) L 01/25/21 05:40 Ferritin 1178.0 ng/mL (30.0-300.0) H 01/24/21 05:05 Total Bilirubin 1.40 mg/dL (0.1-1.2) H 01/25/21 05:40 AST 62 units/L (5-40) H 01/25/21 05:40 ALT 48 units/L (7-56) 01/25/21 05:40 Alkaline Phosphatase 88 units/L (35-129) 01/25/21 05:40 Lactate Dehydrogenase 658 units/L (91-180) H 01/24/21 05:05 C-Reactive Protein 33.20 mg/dL (0.00-1.30) H 01/24/21 05:05 Total Protein 7.1 g/dL (6.3-8.2) 01/25/21 05:40 Albumin 2.6 g/dL (3.9-5) L 01/25/21 05:40 Albumin/Globulin Ratio 0.6 % 01/25/21 05:40 Procalcitonin 0.92 ng/mL (<0.15) 01/22/21 22:57 Arterial Blood Glucose 165 mg/dL (65-95) H 01/25/21 04:15 Arterial Blood Ionized Calcium 4.3 mg/dL (4.6-5.3) L 01/25/21 04:15 Urine Color Nehal (Yellow) 01/22/21 22:39 Urine Turbidity Cloudy (Clear) 01/22/21 22:39 Urine pH 5.0 (5.0-7.0) 01/22/21 22:39 Ur Specific [place] 1.017 (1.003-1.030) 01/22/21 22:39 Urine Protein 100 mg/dl mg/dL (Negative) 01/22/21 22:39 Urine Glucose (UA) Neg mg/dL (Negative) 01/22/21 22:39 Urine Ketones Neg mg/dL (Negative) 01/22/21 22:39 Urine Blood Mod (Negative) 01/22/21 22:39 Urine Nitrite Neg (Negative) 01/22/21 22:39 Urine Bilirubin Neg (Negative) 01/22/21 22:39 Urine Urobilinogen 2.0 mg/dL (<2.0) 01/22/21 22:39 Ur Leukocyte Esterase Mod (Negative) 01/22/21 22:39 Urine WBC (Auto) < 1.0 /HPF (0.0-6.0) 01/22/21 22:39 Urine RBC (Auto) < 1.0 /HPF (0.0-6.0) 01/22/21 22:39 U Epithel Cells (Auto) < 1.0 /HPF (0-13.0) 01/22/21 22:39 Urine Creatinine 301.2 mg/dL (0.1-20.0) H 01/22/21 22:39 Urine Sodium 28 mmol/L 01/22/21 22:39 Coronavirus (PCR) Positive (Negative) A 01/23/21 08:41 Microbiology: Microbiology 01/22/21 22:57 Peripheral/Venous Blood Culture - Preliminary NO GROWTH AFTER 48 HOURS 01/22/21 22:52 Peripheral/Venous Blood Culture - Preliminary NO GROWTH AFTER 48 HOURS 01/22/21 22:39 Tracheal Aspirate Sputum Culture - Preliminary Black/IV: Voiding Method Indwelling Catheter Active Medications - Current Medications Current Medications: Generic Name Dose Route Start Last Admin Trade Name Freq PRN Reason Stop Dose Admin Acetaminophen 650 mg 01/23/21 02:25 Acetaminophen 650 Mg Rect Supp [place] Q4H PRN Pain, Mild (1-3) Acetaminophen 650 mg 01/24/21 12:58 01/25/21 00:03 Acetaminophen 325 Mg/10.15 Ml Oral Liqd Unit Dose FEEDTUBE 650 mg Q6H PRN Administration Pain, Mild (1-3) Dexamethasone 6 mg 01/23/21 22:00 01/25/21 09:09 Dexamethasone 4 Mg/Ml Vial IV 02/01/21 22:01 6 mg BID CECE Administration Famotidine 20 mg 01/24/21 10:00 01/25/21 09:10 Famotidine 20 Mg/2 Ml Inj IV 20 mg DAILY CECE Administration Fentanyl 50 mcg 01/22/21 22:39 Fentanyl 100 Mcg/2 Ml Inj IV Q10MIN PRN ANALGESIA Heparin Sodium (Porcine) 5,000 unit 01/24/21 14:00 01/25/21 05:46 Heparin 5,000 Unit/1 Ml Vial SUB-Q 5,000 unit Q8HR CECE Administration Hydrophilic Ointment 1 applic 01/22/21 22:39 Lip Therapy Vaseline TP Q2HR PRN Dry Lips Fentanyl Citrate 2,000 mcg in 100 mls @ 6.124 mls/hr 01/22/21 23:00 01/25/21 08:46 Fentanyl Drip Premix IV 3 mcg/kg/hr TITR CECE 18.371 mls/hr Administration Protocol 1 MCG/KG/HR Propofol 1,000 mg in 100 mls @ 3.674 mls/hr 01/22/21 23:45 01/25/21 08:55 Diprivan 10 Mg/Ml IV 30 mcg/kg/min TITR CECE 22.045 mls/hr Titration Protocol 5 MCG/KG/MIN Azithromycin 500 mg in 250 mls @ 250 mls/hr 01/23/21 22:00 01/24/21 21:45 Zithromax/Ns IV 01/27/21 22:59 250 mls/hr Q24H CECE Administration Sodium Chloride 1,000 mls @ 50 mls/hr 01/23/21 08:00 01/24/21 17:10 Nacl 0.9% 1000 Ml IV 50 mls/hr DIRECT CECE Administration Ceftriaxone Sodium 2 gm in 100 mls @ 200 mls/hr 01/23/21 22:00 01/24/21 22:46 Rocephin/Ns 2 Gm/100 Ml IV 01/27/21 22:29 200 mls/hr Q24H CECE Administration Protocol REMDESIVIR 100 mg/ Sodium 250 mls @ 500 mls/hr 01/24/21 21:00 Chloride IV 01/28/21 21:29 Q24HR@2100 [facility] Multi-Ingred Cream/Lotion/Oil/Oint 1 applic 01/22/21 22:39 Mineral Oil/Petrolatum, White Ophth Oint 3.5 Gm OU Q4HR PRN Dry Eye(s) Ondansetron HCl 4 mg 01/23/21 02:17 Ondansetron 4 Mg/2 Ml Inj IV Q8H PRN Nausea And Vomiting Sodium Chloride 50 ml 01/23/21 21:00 01/25/21 00:00 Sodium Chloride 0.9% 50 Ml Ivpb IV 01/27/21 21:01 Not Given Q24HR@2100 [facility]
[2021-01-25] MEDS: REMDESIVIR 100 MG in SODIUM CHLORIDE 0.9% 250ML 250 ML IV SCH (10:51)
--- NOTE | 2021-01-25 11:36 | Progress Note ---
Assessment and Plan 60 y/o male with ARDS secondary most likely to COVID 19 pneumonia. 01/25/21: Hold on proning today. Continue BID steroids. ABG this AM was adequate. Pending abg tomorrow, may increase PEEP if not able to wean FiO2 any further. Per charting Remdesivir to arrive tomorrow. Guarded prognosis. 01/24/21: Continue BID steroids. No abg done this am but able to wean FiO2. Will obtain ABG in the am. Hold on proning for right now. Renal following, would like to diurese but they are given fluids for deisi. Agree with ID assessment and note. Guarded prognosis. 1. Increase steroids to BID given size 2. Check with ID to see if he is a candidate for remdesivir or any other experiemental therapy 3. Hold on proning for right now 4. Renal consulted and giving IVF's currently Guarded prognosis. CCT 31 minutes. Subjective Date of service: 01/25/21 Principal diagnosis: DEISI Interval history: No acute events overnight. Down to 75%. Renal still giving fluids. Sedation is better today. Sats in the mid 90's. Objective Vital Signs - 12hr 01/24/21 01/25/21 01/25/21 23:36 00:00 03:40 Temperature 102.2 F H 97.9 F Pulse Rate 94 H Respiratory Rate Respiratory Rate [Chest] Blood Pressure O2 Sat by Pulse Oximetry 01/25/21 01/25/21 01/25/21 04:00 07:43 08:00 Temperature Pulse Rate 81 92 H 94 H Respiratory 16 Rate Respiratory Rate [Chest] Blood Pressure 114/72 125/67 O2 Sat by Pulse 92 94 90 Oximetry 01/25/21 01/25/21 01/25/21 08:50 10:00 11:24 Temperature 98.4 F Pulse Rate 93 H Respiratory Rate Respiratory 16 Rate [Chest] Blood Pressure 103/56 O2 Sat by Pulse 93 Oximetry CBC and BMP: 01/25/21 05:40 01/25/21 05:40 ABG, PT/INR, D-dimer: ABG ABG pH 7.373 (7.320-7.450) 01/25/21 04:15 POC ABG pCO2 39.5 mmHg (32.0-48.0) 01/25/21 04:15 ABG pCO2 39.5 mm Hg 01/23/21 Unknown POC ABG pO2 63.2 mmHg (83-108) L 01/25/21 04:15 ABG pO2 165.4 mm Hg (80.0-90.0) H 01/23/21 Unknown POC ABG HCO3 22.5 01/25/21 04:15 ABG O2 Saturation 90.1 (0-100) 01/25/21 04:15 PT/INR, D-dimer D-Dimer 6159.48 ng/mlDDU (0-234) H 01/24/21 05:05 Abnormal lab findings: Abnormal Labs 01/22/21 01/22/21 01/22/21 22:39 22:57 22:57 WBC MCV MCH MCHC Lymph % (Auto) 6.6 L Lymph # (Auto) 0.5 L Seg Neutrophils % 87.6 H Seg Neuts % (Manual) Lymphocytes % (Manual) Seg Neutrophils # Man Lymphocytes # (Manual) D-Dimer POC ABG pO2 ABG pO2 ABG Base Excess ABG Oxyhemoglobin ABG Glucose Carboxyhemoglobin Sodium 129 L Potassium 3.4 L Chloride 90.4 L Carbon Dioxide BUN 34 H Creatinine 1.5 H Glucose 146 H POC Glucose Lactic Acid Calcium 7.8 L Ferritin Total Bilirubin AST 75 H ALT 57 H Lactate Dehydrogenase C-Reactive Protein Albumin 2.9 L Arterial Blood Glucose Arterial Blood Ionized Calcium Urine Creatinine 301.2 H Coronavirus (PCR) 01/22/21 01/22/21 01/22/21 22:57 22:57 22:57 WBC MCV MCH MCHC Lymph % (Auto) Lymph # (Auto) Seg Neutrophils % Seg Neuts % (Manual) Lymphocytes % (Manual) Seg Neutrophils # Man Lymphocytes # (Manual) D-Dimer 1173.89 H POC ABG pO2 ABG pO2 ABG Base Excess ABG Oxyhemoglobin ABG Glucose Carboxyhemoglobin Sodium Potassium Chloride Carbon Dioxide BUN Creatinine Glucose 149 H POC Glucose Lactic Acid 2.10 H* Calcium Ferritin Total Bilirubin AST ALT Lactate Dehydrogenase 685 H C-Reactive Protein 30.40 H Albumin Arterial Blood Glucose Arterial Blood Ionized Calcium Urine Creatinine Coronavirus (PCR) 01/22/21 01/23/21 01/23/21 22:57 08:41 10:01 WBC MCV MCH MCHC Lymph % (Auto) Lymph # (Auto) Seg Neutrophils % Seg Neuts % (Manual) Lymphocytes % (Manual) Seg Neutrophils # Man Lymphocytes # (Manual) D-Dimer POC ABG pO2 ABG pO2 ABG Base Excess ABG Oxyhemoglobin ABG Glucose Carboxyhemoglobin Sodium 131 L Potassium Chloride 88.7 L Carbon Dioxide 18 L BUN 36 H Creatinine 1.6 H Glucose 147 H POC Glucose Lactic Acid Calcium 7.5 L Ferritin 1207.0 H Total Bilirubin AST ALT Lactate Dehydrogenase C-Reactive Protein Albumin Arterial Blood Glucose Arterial Blood Ionized Calcium Urine Creatinine Coronavirus (PCR) Positive A 01/23/21 01/23/21 01/24/21 20:49 Unknown 00:10 WBC MCV MCH MCHC Lymph % (Auto) Lymph # (Auto) Seg Neutrophils % Seg Neuts % (Manual) Lymphocytes % (Manual) Seg Neutrophils # Man Lymphocytes # (Manual) D-Dimer POC ABG pO2 ABG pO2 165.4 H ABG Base Excess -2.5 L ABG Oxyhemoglobin ABG Glucose Carboxyhemoglobin Sodium 130 L Potassium Chloride 91.0 L Carbon Dioxide 20 L BUN 52 H Creatinine 3.8 H D Glucose 150 H POC Glucose 125 H Lactic Acid Calcium 8.0 L Ferritin Total Bilirubin AST 42 H ALT Lactate Dehydrogenase C-Reactive Protein Albumin 2.4 L Arterial Blood Glucose Arterial Blood Ionized Calcium Urine Creatinine Coronavirus (PCR) 01/24/21 01/24/21 01/24/21 05:05 05:05 05:05 WBC 14.0 H MCV 95 H MCH 33 H MCHC Lymph % (Auto) Lymph # (Auto) Seg Neutrophils % Seg Neuts % (Manual) 91.0 H Lymphocytes % (Manual) 4.0 L Seg Neutrophils # Man 12.7 H Lymphocytes # (Manual) 0.6 L D-Dimer 6159.48 H POC ABG pO2 ABG pO2 ABG Base Excess ABG Oxyhemoglobin ABG Glucose Carboxyhemoglobin Sodium Potassium Chloride Carbon Dioxide BUN Creatinine Glucose POC Glucose Lactic Acid Calcium Ferritin 1178.0 H Total Bilirubin AST ALT Lactate Dehydrogenase C-Reactive Protein Albumin Arterial Blood Glucose Arterial Blood Ionized Calcium Urine Creatinine Coronavirus (PCR) 01/24/21 01/24/21 01/24/21 05:05 05:05 05:05 WBC MCV MCH MCHC Lymph % (Auto) Lymph # (Auto) Seg Neutrophils % Seg Neuts % (Manual) Lymphocytes % (Manual) Seg Neutrophils # Man Lymphocytes # (Manual) D-Dimer POC ABG pO2 ABG pO2 ABG Base Excess ABG Oxyhemoglobin ABG Glucose Carboxyhemoglobin Sodium 132 L Potassium Chloride 93.1 L Carbon Dioxide 21 L BUN 57 H Creatinine 3.7 H Glucose 133 H POC Glucose Lactic Acid 2.20 H* Calcium 7.7 L Ferritin Total Bilirubin AST ALT Lactate Dehydrogenase 658 H C-Reactive Protein 33.20 H Albumin 2.4 L Arterial Blood Glucose Arterial Blood Ionized Calcium Urine Creatinine Coronavirus (PCR) 01/24/21 01/24/21 01/25/21 05:34 17:35 04:15 WBC MCV MCH MCHC Lymph % (Auto) Lymph # (Auto) Seg Neutrophils % Seg Neuts % (Manual) Lymphocytes % (Manual) Seg Neutrophils # Man Lymphocytes # (Manual) D-Dimer POC ABG pO2 63.2 L ABG pO2 ABG Base Excess ABG Oxyhemoglobin 89.6 L ABG Glucose 165 H Carboxyhemoglobin 0.3 L Sodium Potassium Chloride Carbon Dioxide BUN Creatinine Glucose POC Glucose 136 H 137 H Lactic Acid Calcium Ferritin Total Bilirubin AST ALT Lactate Dehydrogenase C-Reactive Protein Albumin Arterial Blood Glucose 165 H Arterial Blood Ionized Calcium 4.3 L Urine Creatinine Coronavirus (PCR) 01/25/21 01/25/21 01/25/21 05:40 05:40 05:59 WBC MCV 95 H MCH 33 H MCHC 35 H Lymph % (Auto) Lymph # (Auto) Seg Neutrophils % Seg Neuts % (Manual) 95.0 H Lymphocytes % (Manual) 3.0 L Seg Neutrophils # Man 7.8 H Lymphocytes # (Manual) 0.2 L D-Dimer POC ABG pO2 ABG pO2 ABG Base Excess ABG Oxyhemoglobin ABG Glucose Carboxyhemoglobin Sodium Potassium Chloride Carbon Dioxide BUN 67 H Creatinine 3.4 H Glucose 153 H POC Glucose 140 H Lactic Acid Calcium 7.5 L Ferritin Total Bilirubin 1.40 H AST 62 H ALT Lactate Dehydrogenase C-Reactive Protein Albumin 2.6 L Arterial Blood Glucose Arterial Blood Ionized Calcium Urine Creatinine Coronavirus (PCR)
--- NOTE | 2021-01-25 14:35 | Progress Note ---
Assessment and Plan Cultures: Blood culture no growth today SARS CoV2 PCR positive 01/22/2021 respiratory culture: Usual respiratory dillon Assessment: 60 year old male with history of morbid obesity admitted on 01/22/2021 secondary to 3-day history of worsening shortness of breath associated with fever, chills, loss of smell and taste: #Severe sepsis: Present on admission with low-grade fever, tachycardia, hypoxia, hypotension, elevated lactate, DEISI. likely due to bilateral pneumonia. Urinalysis negative. Procalcitonin elevated in the setting of DEISI. #Critical COVID-19 pneumonia: Patient intubated. Chest x-ray with bilateral airspace disease. Inflammatory markers elevated. D-dimer 1173. CRP 30. #Acute respiratory failure: on vent. #Transaminitis: Likely secondary to COVID-19. #DEISI: Likely secondary to COVID-19. Recommendations: -Continue steroids per pulmonary -Continue remdesivir, however remdesivir is currently out of stock per discussion with pharmacy. However, creatinine also worsening, there is limited data but showed minimal to no risk -Monitor inflammatory markers -Complete empiric antibiotic course -Anticoagulation per protocol -guarded prognosis Melida Byrne MD, FACP [facility] ([facility] O: [phone] F: [phone] Subjective Date of service: 01/25/21 Principal diagnosis: DEISI Interval history: Febrile yesterday, none today. Remains on the vent. Objective - Exam Narrative Exam: Physical Exam (reviewed in chart to minimize risk of transmission) Constitutional: deferred Head, Ears, Nose: deferred Eyes: deferred Neck: deferred Oral: deferred Cardiovascular: deferred Respiratory: deferred GI: deferred Musculoskeletal: deferred Skin: deferred Hem/Lymphatic: deferred Psych: deferred Neurological: deferred - Constitutional Vitals: Vital Signs Temp Pulse Resp BP Pulse Ox 98.3 F 90 16 103/56 90 01/25/21 12:00 01/25/21 12:00 01/25/21 12:00 01/25/21 11:24 01/25/21 12:00 Temperature -Last 24 Hours Temperature 98.3 F Temperature 98.4 F Temperature 97.9 F Temperature 102.2 F Temperature 101.4 F Temperature 101.4 F - Labs CBC & Chem 7: 01/25/21 05:40 01/25/21 05:40 Labs: Abnormal lab results 01/24/21 01/25/21 01/25/21 Range/Units 17:35 04:15 05:40 MCV 95 H (84-94) fl MCH 33 H (28-32) pg MCHC 35 H (32-34) % Seg Neuts % (Manual) 95.0 H (40.0-70.0) % Lymphocytes % (Manual) 3.0 L (13.4-35.0) % Seg Neutrophils # Man 7.8 H (1.8-7.7) K/mm3 Lymphocytes # (Manual) 0.2 L (1.2-5.4) K/mm3 POC ABG pO2 63.2 L (83-108) mmHg ABG Oxyhemoglobin 89.6 L (94-98) ABG Glucose 165 H (65-95) mg/dL Carboxyhemoglobin 0.3 L (0.5-1.5) BUN (9-20) mg/dL Creatinine (0.8-1.3) mg/dL Glucose (75-100) mg/dL POC Glucose 137 H (70-105) mg/dL Calcium (8.4-10.2) mg/dL Total Bilirubin (0.1-1.2) mg/dL AST (5-40) units/L Albumin (3.9-5) g/dL Arterial Blood Glucose 165 H (65-95) mg/dL Arterial Blood Ionized Calcium 4.3 L (4.6-5.3) mg/dL 01/25/21 01/25/21 01/25/21 Range/Units 05:40 05:59 12:00 MCV (84-94) fl MCH (28-32) pg MCHC (32-34) % Seg Neuts % (Manual) (40.0-70.0) % Lymphocytes % (Manual) (13.4-35.0) % Seg Neutrophils # Man (1.8-7.7) K/mm3 Lymphocytes # (Manual) (1.2-5.4) K/mm3 POC ABG pO2 (83-108) mmHg ABG Oxyhemoglobin (94-98) ABG Glucose (65-95) mg/dL Carboxyhemoglobin (0.5-1.5) BUN 67 H (9-20) mg/dL Creatinine 3.4 H (0.8-1.3) mg/dL Glucose 153 H (75-100) mg/dL POC Glucose 140 H 143 H (70-105) mg/dL Calcium 7.5 L (8.4-10.2) mg/dL Total Bilirubin 1.40 H (0.1-1.2) mg/dL AST 62 H (5-40) units/L Albumin 2.6 L (3.9-5) g/dL Arterial Blood Glucose (65-95) mg/dL Arterial Blood Ionized Calcium (4.6-5.3) mg/dL - Imaging and cardiology Chest x-ray: report reviewed, image reviewed (b/l pna)
[2021-01-25] MEDS: SODIUM CHLORIDE 0.9% 1000 ML 1,000 ML IV SCH (15:44)
[2021-01-25] MEDS: cefTRIAXone/NS 2 GM/100 ML 2 GM/100 ML BAG IV SCH (21:20)
[2021-01-25] MEDS: AZITHROMYCIN/NS 500 MG/250 ML 500 MG/250 ML BAG IV SCH (21:59)
[2021-01-26] MEDS: fentaNYL DRIP Premix 2,000 MCG/100 ML BAG IV SCH ×6 (00:49→20:07)
[2021-01-26] MEDS: ACETAMINOPHEN 325 MG/10.15 ML ORAL LIQD UNIT DOSE FEEDTUBE PRN ×2 (03:33→15:08)
--- NOTE | 2021-01-26 04:36 | XRay Report ---
CHEST 1 VIEW INDICATION: follow up respiratory failure COMPARISON: One day prior. FINDINGS: Support devices: Unchanged. Heart: Stable. Lungs/Pleura: Diffuse bilateral lung disease persists without significant interval change. IMPRESSION: 1. No significant change. Signer Name: Lavon Padilla MD Signed: 01/26/2021 4:32 AM Workstation Name: [id number]
[2021-01-26] MEDS: HEPARIN 5,000 UNIT/1 ML VIAL SUB-Q SCH (05:40)
[2021-01-26 06:12] LABS: Hematocrit 35.3 % (35.5-45.6); Mean Corpuscular HGB Conc 34 % (32-34); Mean Corpuscular Volume 96 fl (84-94); Platelet Count 358 K/mm3 (140-440); Red Blood Count 3.67 M/mm3 (3.65-5.03); Red Cell Distribution Width 14.5 % (13.2-15.2)
[2021-01-26 06:19] LABS: Calcium 8.1 mg/dL (8.4-10.2)
[2021-01-26 06:23] LABS: Albumin 2.2 g/dL (3.9-5)
[2021-01-26 07:04] LABS: C-Reactive Protein 40.1 mg/dL (0.00-1.30)
[2021-01-26 07:05] LABS: Total Cells Counted 100
[2021-01-26 07:06] LABS: Anisocytosis Few; Platelet Estimate Consistent w Auto; Schistocytes Rare; Tear Drop Cells Rare
--- NOTE | 2021-01-26 08:44 | Progress Note ---
Assessment and Plan Hypoxic resp failure possible COVID-19 PNA Acute renal failure Hyponatremia Cr and BUN cont to improve non-oliguric no indication for TOP TRIMMER cont gentle IV hydration Renally dose meds strict I&O Carlton Pitts MD [phone] Subjective Date of service: 01/26/21 Principal diagnosis: DEISI Interval history: cont to be intubated and sedateds Objective - Vital Signs Vital signs: Vital Signs - 12hr 01/25/21 01/26/21 01/26/21 23:48 00:00 04:00 Temperature 101.7 F H 100.3 F H Pulse Rate 100 H 94 H 91 H Blood Pressure 109/68 O2 Sat by Pulse 90 Oximetry 01/26/21 04:32 Temperature Pulse Rate 94 H Blood Pressure O2 Sat by Pulse 91 Oximetry - Lab 01/26/21 05:47 01/26/21 05:47 Most recent lab results ABG pH 7.357 (7.320-7.450) 01/26/21 03:43 ABG pCO2 39.5 mm Hg 01/23/21 Unknown ABG pO2 165.4 mm Hg (80.0-90.0) H 01/23/21 Unknown ABG HCO3 22.4 mmol/L (20.0-26.0) 01/23/21 Unknown ABG O2 Saturation 92.9 (0-100) 01/26/21 03:43 Calcium 8.0 mg/dL (8.4-10.2) L 01/26/21 05:47 Calcium 8.1 mg/dL (8.4-10.2) L 01/26/21 05:47 Urine Creatinine 301.2 mg/dL (0.1-20.0) H 01/22/21 22:39 Urine Sodium 28 mmol/L 01/22/21 22:39 Medications & Allergies - Medications Allergies/Adverse Reactions: Allergies No Known Allergies Allergy (Unverified 03/12/20 13:41) Home Medications: Home Medications Medication Instructions Recorded Confirmed Last Taken Type Clindamycin [Clindamycin CAP] 300 mg PO Q8H #21 cap 03/12/20 Unknown Rx Insulin NPH/Regular [Novolin 70/30] 18 unit SUB-Q TIDAC #1 vial 03/12/20 Unknown Rx Syringe-Needle,Insulin,0.5 ml 1 box MC TID #1 box 03/12/20 Unknown Rx [Insulin Syringe/Needle 0.5 ML] Active Medications: Generic Name Dose Route Start Last Admin Trade Name Freq PRN Reason Stop Dose Admin Acetaminophen 650 mg 01/23/21 02:25 Acetaminophen 650 Mg Rect Supp [place] Q4H PRN Pain, Mild (1-3) Acetaminophen 650 mg 01/24/21 12:58 01/26/21 03:33 Acetaminophen 325 Mg/10.15 Ml Oral Liqd Unit Dose FEEDTUBE 650 mg Q6H PRN Administration Pain, Mild (1-3) Dexamethasone 6 mg 01/23/21 22:00 01/25/21 21:21 Dexamethasone 4 Mg/Ml Vial IV 02/01/21 22:01 6 mg BID CECE Administration Famotidine 20 mg 01/24/21 10:00 01/25/21 09:10 Famotidine 20 Mg/2 Ml Inj IV 20 mg DAILY CECE Administration Fentanyl 50 mcg 01/22/21 22:39 Fentanyl 100 Mcg/2 Ml Inj IV Q10MIN PRN ANALGESIA Heparin Sodium (Porcine) 5,000 unit 01/24/21 14:00 01/26/21 05:40 Heparin 5,000 Unit/1 Ml Vial SUB-Q 5,000 unit Q8HR CECE Administration Hydrophilic Ointment 1 applic 01/22/21 22:39 Lip Therapy Vaseline TP Q2HR PRN Dry Lips Fentanyl Citrate 2,000 mcg in 100 mls @ 6.124 mls/hr 01/22/21 23:00 01/26/21 08:17 Fentanyl Drip Premix IV 4 mcg/kg/hr TITR CECE 24.494 mls/hr Titration Protocol 1 MCG/KG/HR Propofol 1,000 mg in 100 mls @ 3.674 mls/hr 01/22/21 23:45 01/26/21 08:00 Diprivan 10 Mg/Ml IV 40 mcg/kg/min TITR CECE 29.393 mls/hr Titration Protocol 5 MCG/KG/MIN Azithromycin 500 mg in 250 mls @ 250 mls/hr 01/23/21 22:00 01/25/21 21:59 Zithromax/Ns IV 01/27/21 22:59 250 mls/hr Q24H CECE Administration Sodium Chloride 1,000 mls @ 50 mls/hr 01/23/21 08:00 01/25/21 15:44 Nacl 0.9% 1000 Ml IV 50 mls/hr DIRECT CECE Administration Ceftriaxone Sodium 2 gm in 100 mls @ 200 mls/hr 01/23/21 22:00 01/25/21 21:20 Rocephin/Ns 2 Gm/100 Ml IV 01/27/21 22:29 200 mls/hr Q24H CECE Administration Protocol REMDESIVIR 100 mg/ Sodium 250 mls @ 500 mls/hr 01/24/21 21:00 01/25/21 10:51 Chloride IV 01/28/21 21:29 Not Given Q24HR@2100 [facility] Multi-Ingred Cream/Lotion/Oil/Oint 1 applic 01/22/21 22:39 Mineral Oil/Petrolatum, White Ophth Oint 3.5 Gm OU Q4HR PRN Dry Eye(s) Ondansetron HCl 4 mg 01/23/21 02:17 Ondansetron 4 Mg/2 Ml Inj IV Q8H PRN Nausea And Vomiting Sodium Chloride 50 ml 01/23/21 21:00 01/25/21 00:00 Sodium Chloride 0.9% 50 Ml Ivpb IV 01/28/21 21:01 Not Given Q24HR@2100 [facility]
[2021-01-26] MEDS: FAMOTIDINE 20 MG/2 ML INJ IV SCH (10:11)
[2021-01-26] MEDS: dexAMETHasone 4 MG/ML VIAL IV SCH ×2 (11:08→21:53)
--- NOTE | 2021-01-26 12:01 | Progress Note ---
Assessment and Plan Cultures: Blood culture no growth today SARS CoV2 PCR positive 01/22/2021 respiratory culture: Usual respiratory dillon Assessment: 60 year old male with history of morbid obesity admitted on 01/22/2021 secondary to 3-day history of worsening shortness of breath associated with fever, chills, loss of smell and taste: #Severe sepsis: Present on admission with low-grade fever, tachycardia, hypoxia, hypotension, elevated lactate, DEISI. likely due to bilateral pneumonia. Urinalysis negative. Procalcitonin elevated in the setting of DEISI. #Critical COVID-19 pneumonia: Patient intubated. Chest x-ray with bilateral airspace disease. Inflammatory markers elevated. D-dimer 1173. CRP 30. #Acute respiratory failure: on vent. #Transaminitis: Likely secondary to COVID-19. #DEISI: Likely secondary to COVID-19. Recommendations: -Continue steroids per pulmonary -Continue remdesivir, however remdesivir is currently out of stock per discussion with pharmacy. -already on the vent for >24 hrs, not a candidate for tocilizumab -Monitor inflammatory markers -Complete empiric antibiotic course -Anticoagulation per protocol -guarded prognosis Melida Byrne MD, FACP [facility] ([facility] O: [phone] F: [phone] Subjective Date of service: 01/26/21 Principal diagnosis: DEISI Interval history: Intermittent fevers continue. Remains on the vent. Objective - Exam Narrative Exam: Physical Exam (reviewed in chart to minimize risk of transmission) Constitutional: deferred Head, Ears, Nose: deferred Eyes: deferred Neck: deferred Oral: deferred Cardiovascular: deferred Respiratory: deferred GI: deferred Musculoskeletal: deferred Skin: deferred Hem/Lymphatic: deferred Psych: deferred Neurological: deferred - Constitutional Vitals: Vital Signs Temp Pulse Resp BP Pulse Ox 100.3 F H 96 H 16 123/72 95 01/26/21 04:00 01/26/21 10:09 01/25/21 16:00 01/26/21 10:09 01/26/21 10:09 Temperature -Last 24 Hours Temperature 100.3 F Temperature 101.7 F Temperature 100.8 F Temperature 98.2 F Temperature 98.3 F - Labs CBC & Chem 7: 01/26/21 05:47 01/26/21 05:47 Labs: Abnormal lab results 01/25/21 01/25/21 01/25/21 Range/Units 12:00 17:17 23:41 Hct (35.5-45.6) % MCV (84-94) fl MCH (28-32) pg Seg Neuts % (Manual) (40.0-70.0) % Lymphocytes % (Manual) (13.4-35.0) % Lymphocytes # (Manual) (1.2-5.4) K/mm3 D-Dimer (0-234) ng/mlDDU POC ABG pO2 (83-108) mmHg ABG Oxyhemoglobin (94-98) ABG Chloride (98-107) mmol/L ABG Glucose (65-95) mg/dL Chloride (98-107) mmol/L BUN (9-20) mg/dL Creatinine (0.8-1.3) mg/dL Glucose (75-100) mg/dL POC Glucose 143 H 149 H 132 H (70-105) mg/dL Calcium (8.4-10.2) mg/dL Ferritin (30.0-300.0) ng/mL Total Bilirubin (0.1-1.2) mg/dL Lactate Dehydrogenase (91-180) units/L C-Reactive Protein (0.00-1.30) mg/dL Albumin (3.9-5) g/dL Arterial Blood Glucose (65-95) mg/dL Arterial Blood Ionized Calcium (4.6-5.3) mg/dL 01/26/21 01/26/21 01/26/21 Range/Units 03:43 05:46 05:47 Hct 35.3 L (35.5-45.6) % MCV 96 H (84-94) fl MCH 33 H (28-32) pg Seg Neuts % (Manual) 96.0 H (40.0-70.0) % Lymphocytes % (Manual) 2.0 L (13.4-35.0) % Lymphocytes # (Manual) 0.1 L (1.2-5.4) K/mm3 D-Dimer (0-234) ng/mlDDU POC ABG pO2 70.0 L (83-108) mmHg ABG Oxyhemoglobin 91.9 L (94-98) ABG Chloride 109.0 H (98-107) mmol/L ABG Glucose 165 H (65-95) mg/dL Chloride (98-107) mmol/L BUN (9-20) mg/dL Creatinine (0.8-1.3) mg/dL Glucose (75-100) mg/dL POC Glucose 161 H (70-105) mg/dL Calcium (8.4-10.2) mg/dL Ferritin (30.0-300.0) ng/mL Total Bilirubin (0.1-1.2) mg/dL Lactate Dehydrogenase (91-180) units/L C-Reactive Protein (0.00-1.30) mg/dL Albumin (3.9-5) g/dL Arterial Blood Glucose 165 H (65-95) mg/dL Arterial Blood Ionized Calcium 4.5 L (4.6-5.3) mg/dL 01/26/21 01/26/21 01/26/21 Range/Units 05:47 05:47 05:47 Hct (35.5-45.6) % MCV (84-94) fl MCH (28-32) pg Seg Neuts % (Manual) (40.0-70.0) % Lymphocytes % (Manual) (13.4-35.0) % Lymphocytes # (Manual) (1.2-5.4) K/mm3 D-Dimer > 78543 H (0-234) ng/mlDDU POC ABG pO2 (83-108) mmHg ABG Oxyhemoglobin (94-98) ABG Chloride (98-107) mmol/L ABG Glucose (65-95) mg/dL Chloride (98-107) mmol/L BUN 57 H (9-20) mg/dL Creatinine 2.2 H (0.8-1.3) mg/dL Glucose 185 H (75-100) mg/dL POC Glucose (70-105) mg/dL Calcium 8.1 L (8.4-10.2) mg/dL Ferritin 1178.0 H (30.0-300.0) ng/mL Total Bilirubin (0.1-1.2) mg/dL Lactate Dehydrogenase (91-180) units/L C-Reactive Protein (0.00-1.30) mg/dL Albumin (3.9-5) g/dL Arterial Blood Glucose (65-95) mg/dL Arterial Blood Ionized Calcium (4.6-5.3) mg/dL 01/26/21 01/26/21 Range/Units 05:47 05:47 Hct (35.5-45.6) % MCV (84-94) fl MCH (28-32) pg Seg Neuts % (Manual) (40.0-70.0) % Lymphocytes % (Manual) (13.4-35.0) % Lymphocytes # (Manual) (1.2-5.4) K/mm3 D-Dimer (0-234) ng/mlDDU POC ABG pO2 (83-108) mmHg ABG Oxyhemoglobin (94-98) ABG Chloride (98-107) mmol/L ABG Glucose (65-95) mg/dL Chloride 107.1 H (98-107) mmol/L BUN 56 H (9-20) mg/dL Creatinine 2.2 H (0.8-1.3) mg/dL Glucose 188 H (75-100) mg/dL POC Glucose (70-105) mg/dL Calcium 8.0 L (8.4-10.2) mg/dL Ferritin (30.0-300.0) ng/mL Total Bilirubin 1.50 H (0.1-1.2) mg/dL Lactate Dehydrogenase 588 H (91-180) units/L C-Reactive Protein 40.10 H (0.00-1.30) mg/dL Albumin 2.2 L (3.9-5) g/dL Arterial Blood Glucose (65-95) mg/dL Arterial Blood Ionized Calcium (4.6-5.3) mg/dL
--- NOTE | 2021-01-26 12:25 | Progress Note ---
Assessment and Plan 60 y/o male with ARDS secondary most likely to COVID 19 pneumonia. 01/26/21: Increase PEEP to 14. Will add Precedex therapy. If patient does not respond to increases in PEEP may need to prone. Will place patient on lovenox and will feed patient. Remdesivir coming. Continue BID steroids. Prognosis is guarded. 01/25/21: Hold on proning today. Continue BID steroids. ABG this AM was adequate. Pending abg tomorrow, may increase PEEP if not able to wean FiO2 any further. Per charting Remdesivir to arrive tomorrow. Guarded prognosis. 01/24/21: Continue BID steroids. No abg done this am but able to wean FiO2. Will obtain ABG in the am. Hold on proning for right now. Renal following, would like to diurese but they are given fluids for deisi. Agree with ID assessment and note. Guarded prognosis. 1. Increase steroids to BID given size 2. Check with ID to see if he is a candidate for remdesivir or any other experiemental therapy 3. Hold on proning for right now 4. Renal consulted and giving IVF's currently Guarded prognosis. CCT 31 minutes. Subjective Date of service: 01/26/21 Principal diagnosis: DEISI Interval history: Had to be increased to 90% overnight. Sats are in the upper 90's now. Remains sedated but had to be increased. No fever this morning. Objective Vital Signs - 12hr 01/26/21 01/26/21 01/26/21 04:00 04:32 08:00 Temperature 100.3 F H Pulse Rate 91 H 94 H 99 H Blood Pressure O2 Sat by Pulse 91 Oximetry 01/26/21 10:09 Temperature Pulse Rate 96 H Blood Pressure 123/72 O2 Sat by Pulse 95 Oximetry CBC and BMP: 01/26/21 05:47 01/26/21 05:47 ABG, PT/INR, D-dimer: ABG ABG pH 7.357 (7.320-7.450) 01/26/21 03:43 POC ABG pCO2 47.6 mmHg (32.0-48.0) 01/26/21 03:43 ABG pCO2 39.5 mm Hg 01/23/21 Unknown POC ABG pO2 70.0 mmHg (83-108) L 01/26/21 03:43 ABG pO2 165.4 mm Hg (80.0-90.0) H 01/23/21 Unknown POC ABG HCO3 26.1 01/26/21 03:43 ABG O2 Saturation 92.9 (0-100) 01/26/21 03:43 PT/INR, D-dimer D-Dimer > 61306 ng/mlDDU (0-234) H 01/26/21 05:47 Abnormal lab findings: Abnormal Labs 01/22/21 01/22/21 01/22/21 22:39 22:57 22:57 WBC Hct MCV MCH MCHC Lymph % (Auto) 6.6 L Lymph # (Auto) 0.5 L Seg Neutrophils % 87.6 H Seg Neuts % (Manual) Lymphocytes % (Manual) Seg Neutrophils # Man Lymphocytes # (Manual) D-Dimer POC ABG pO2 ABG pO2 ABG Base Excess ABG Oxyhemoglobin ABG Chloride ABG Glucose Carboxyhemoglobin Sodium 129 L Potassium 3.4 L Chloride 90.4 L Carbon Dioxide BUN 34 H Creatinine 1.5 H Glucose 146 H POC Glucose Lactic Acid Calcium 7.8 L Ferritin Total Bilirubin AST 75 H ALT 57 H Lactate Dehydrogenase C-Reactive Protein Albumin 2.9 L Arterial Blood Glucose Arterial Blood Ionized Calcium Urine Creatinine 301.2 H Coronavirus (PCR) 01/22/21 01/22/21 01/22/21 22:57 22:57 22:57 WBC Hct MCV MCH MCHC Lymph % (Auto) Lymph # (Auto) Seg Neutrophils % Seg Neuts % (Manual) Lymphocytes % (Manual) Seg Neutrophils # Man Lymphocytes # (Manual) D-Dimer 1173.89 H POC ABG pO2 ABG pO2 ABG Base Excess ABG Oxyhemoglobin ABG Chloride ABG Glucose Carboxyhemoglobin Sodium Potassium Chloride Carbon Dioxide BUN Creatinine Glucose 149 H POC Glucose Lactic Acid 2.10 H* Calcium Ferritin Total Bilirubin AST ALT Lactate Dehydrogenase 685 H C-Reactive Protein 30.40 H Albumin Arterial Blood Glucose Arterial Blood Ionized Calcium Urine Creatinine Coronavirus (PCR) 01/22/21 01/23/21 01/23/21 22:57 08:41 10:01 WBC Hct MCV MCH MCHC Lymph % (Auto) Lymph # (Auto) Seg Neutrophils % Seg Neuts % (Manual) Lymphocytes % (Manual) Seg Neutrophils # Man Lymphocytes # (Manual) D-Dimer POC ABG pO2 ABG pO2 ABG Base Excess ABG Oxyhemoglobin ABG Chloride ABG Glucose Carboxyhemoglobin Sodium 131 L Potassium Chloride 88.7 L Carbon Dioxide 18 L BUN 36 H Creatinine 1.6 H Glucose 147 H POC Glucose Lactic Acid Calcium 7.5 L Ferritin 1207.0 H Total Bilirubin AST ALT Lactate Dehydrogenase C-Reactive Protein Albumin Arterial Blood Glucose Arterial Blood Ionized Calcium Urine Creatinine Coronavirus (PCR) Positive A 01/23/21 01/23/21 01/24/21 20:49 Unknown 00:10 WBC Hct MCV MCH MCHC Lymph % (Auto) Lymph # (Auto) Seg Neutrophils % Seg Neuts % (Manual) Lymphocytes % (Manual) Seg Neutrophils # Man Lymphocytes # (Manual) D-Dimer POC ABG pO2 ABG pO2 165.4 H ABG Base Excess -2.5 L ABG Oxyhemoglobin ABG Chloride ABG Glucose Carboxyhemoglobin Sodium 130 L Potassium Chloride 91.0 L Carbon Dioxide 20 L BUN 52 H Creatinine 3.8 H D Glucose 150 H POC Glucose 125 H Lactic Acid Calcium 8.0 L Ferritin Total Bilirubin AST 42 H ALT Lactate Dehydrogenase C-Reactive Protein Albumin 2.4 L Arterial Blood Glucose Arterial Blood Ionized Calcium Urine Creatinine Coronavirus (PCR) 01/24/21 01/24/21 01/24/21 05:05 05:05 05:05 WBC 14.0 H Hct MCV 95 H MCH 33 H MCHC Lymph % (Auto) Lymph # (Auto) Seg Neutrophils % Seg Neuts % (Manual) 91.0 H Lymphocytes % (Manual) 4.0 L Seg Neutrophils # Man 12.7 H Lymphocytes # (Manual) 0.6 L D-Dimer 6159.48 H POC ABG pO2 ABG pO2 ABG Base Excess ABG Oxyhemoglobin ABG Chloride ABG Glucose Carboxyhemoglobin Sodium Potassium Chloride Carbon Dioxide BUN Creatinine Glucose POC Glucose Lactic Acid Calcium Ferritin 1178.0 H Total Bilirubin AST ALT Lactate Dehydrogenase C-Reactive Protein Albumin Arterial Blood Glucose Arterial Blood Ionized Calcium Urine Creatinine Coronavirus (PCR) 01/24/21 01/24/21 01/24/21 05:05 05:05 05:05 WBC Hct MCV MCH MCHC Lymph % (Auto) Lymph # (Auto) Seg Neutrophils % Seg Neuts % (Manual) Lymphocytes % (Manual) Seg Neutrophils # Man Lymphocytes # (Manual) D-Dimer POC ABG pO2 ABG pO2 ABG Base Excess ABG Oxyhemoglobin ABG Chloride ABG Glucose Carboxyhemoglobin Sodium 132 L Potassium Chloride 93.1 L Carbon Dioxide 21 L BUN 57 H Creatinine 3.7 H Glucose 133 H POC Glucose Lactic Acid 2.20 H* Calcium 7.7 L Ferritin Total Bilirubin AST ALT Lactate Dehydrogenase 658 H C-Reactive Protein 33.20 H Albumin 2.4 L Arterial Blood Glucose Arterial Blood Ionized Calcium Urine Creatinine Coronavirus (PCR) 01/24/21 01/24/21 01/25/21 05:34 17:35 04:15 WBC Hct MCV MCH MCHC Lymph % (Auto) Lymph # (Auto) Seg Neutrophils % Seg Neuts % (Manual) Lymphocytes % (Manual) Seg Neutrophils # Man Lymphocytes # (Manual) D-Dimer POC ABG pO2 63.2 L ABG pO2 ABG Base Excess ABG Oxyhemoglobin 89.6 L ABG Chloride ABG Glucose 165 H Carboxyhemoglobin 0.3 L Sodium Potassium Chloride Carbon Dioxide BUN Creatinine Glucose POC Glucose 136 H 137 H Lactic Acid Calcium Ferritin Total Bilirubin AST ALT Lactate Dehydrogenase C-Reactive Protein Albumin Arterial Blood Glucose 165 H Arterial Blood Ionized Calcium 4.3 L Urine Creatinine Coronavirus (PCR) 01/25/21 01/25/21 01/25/21 05:40 05:40 05:59 WBC Hct MCV 95 H MCH 33 H MCHC 35 H Lymph % (Auto) Lymph # (Auto) Seg Neutrophils % Seg Neuts % (Manual) 95.0 H Lymphocytes % (Manual) 3.0 L Seg Neutrophils # Man 7.8 H Lymphocytes # (Manual) 0.2 L D-Dimer POC ABG pO2 ABG pO2 ABG Base Excess ABG Oxyhemoglobin ABG Chloride ABG Glucose Carboxyhemoglobin Sodium Potassium Chloride Carbon Dioxide BUN 67 H Creatinine 3.4 H Glucose 153 H POC Glucose 140 H Lactic Acid Calcium 7.5 L Ferritin Total Bilirubin 1.40 H AST 62 H ALT Lactate Dehydrogenase C-Reactive Protein Albumin 2.6 L Arterial Blood Glucose Arterial Blood Ionized Calcium Urine Creatinine Coronavirus (PCR) 01/25/21 01/25/21 01/25/21 12:00 17:17 23:41 WBC Hct MCV MCH MCHC Lymph % (Auto) Lymph # (Auto) Seg Neutrophils % Seg Neuts % (Manual) Lymphocytes % (Manual) Seg Neutrophils # Man Lymphocytes # (Manual) D-Dimer POC ABG pO2 ABG pO2 ABG Base Excess ABG Oxyhemoglobin ABG Chloride ABG Glucose Carboxyhemoglobin Sodium Potassium Chloride Carbon Dioxide BUN Creatinine Glucose POC Glucose 143 H 149 H 132 H Lactic Acid Calcium Ferritin Total Bilirubin AST ALT Lactate Dehydrogenase C-Reactive Protein Albumin Arterial Blood Glucose Arterial Blood Ionized Calcium Urine Creatinine Coronavirus (PCR) 01/26/21 01/26/21 01/26/21 03:43 05:46 05:47 WBC Hct 35.3 L MCV 96 H MCH 33 H MCHC Lymph % (Auto) Lymph # (Auto) Seg Neutrophils % Seg Neuts % (Manual) 96.0 H Lymphocytes % (Manual) 2.0 L Seg Neutrophils # Man Lymphocytes # (Manual) 0.1 L D-Dimer POC ABG pO2 70.0 L ABG pO2 ABG Base Excess ABG Oxyhemoglobin 91.9 L ABG Chloride 109.0 H ABG Glucose 165 H Carboxyhemoglobin Sodium Potassium Chloride Carbon Dioxide BUN Creatinine Glucose POC Glucose 161 H Lactic Acid Calcium Ferritin Total Bilirubin AST ALT Lactate Dehydrogenase C-Reactive Protein Albumin Arterial Blood Glucose 165 H Arterial Blood Ionized Calcium 4.5 L Urine Creatinine Coronavirus (PCR) 01/26/21 01/26/21 01/26/21 05:47 05:47 05:47 WBC Hct MCV MCH MCHC Lymph % (Auto) Lymph # (Auto) Seg Neutrophils % Seg Neuts % (Manual) Lymphocytes % (Manual) Seg Neutrophils # Man Lymphocytes # (Manual) D-Dimer > 41664 H POC ABG pO2 ABG pO2 ABG Base Excess ABG Oxyhemoglobin ABG Chloride ABG Glucose Carboxyhemoglobin Sodium Potassium Chloride Carbon Dioxide BUN 57 H Creatinine 2.2 H Glucose 185 H POC Glucose Lactic Acid Calcium 8.1 L Ferritin 1178.0 H Total Bilirubin AST ALT Lactate Dehydrogenase C-Reactive Protein Albumin Arterial Blood Glucose Arterial Blood Ionized Calcium Urine Creatinine Coronavirus (PCR) 01/26/21 01/26/21 05:47 05:47 WBC Hct MCV MCH MCHC Lymph % (Auto) Lymph # (Auto) Seg Neutrophils % Seg Neuts % (Manual) Lymphocytes % (Manual) Seg Neutrophils # Man Lymphocytes # (Manual) D-Dimer POC ABG pO2 ABG pO2 ABG Base Excess ABG Oxyhemoglobin ABG Chloride ABG Glucose Carboxyhemoglobin Sodium Potassium Chloride 107.1 H Carbon Dioxide BUN 56 H Creatinine 2.2 H Glucose 188 H POC Glucose Lactic Acid Calcium 8.0 L Ferritin Total Bilirubin 1.50 H AST ALT Lactate Dehydrogenase 588 H C-Reactive Protein 40.10 H Albumin 2.2 L Arterial Blood Glucose Arterial Blood Ionized Calcium Urine Creatinine Coronavirus (PCR)
[2021-01-26] MEDS ORDERED: SIMPLE SYRUP 15 ML FEEDTUBE PRN ×2 (14:25)
[2021-01-26] MEDS ORDERED: LIPASE 10,500/PROTEASE 25,000/AMYLASE 43,750 (UNITS) DR CAP FEEDTUBE PRN (14:25)
[2021-01-26] MEDS ORDERED: SODIUM BICARBONATE 325 MG TAB FEEDTUBE PRN (14:25)
[2021-01-26] MEDS: ENOXAPARIN 120 MG/0.8 ML INJ SUB-Q SCH (15:09)
[2021-01-26] MEDS: SODIUM CHLORIDE 0.9% 1000 ML 1,000 ML IV SCH (15:10)
--- NOTE | 2021-01-26 17:05 | Progress Note ---
<BRENDA MORALES - Last Filed: 01/26/21 17:00> Assessment and Plan Assessment and plan: -Infectious disease, CCM, nephrology consulted -Continue contact/droplet precautions -Steroid therapy, remdesivir on backorder -Antibiotic therapy -SSI -Tube feedings -Trend BMP -Resume home antihypertensive regimen when appropriate DVT/GI prophylaxis: SCDs to bilateral lower extremities while in bed, heparin subcu, PPI Dispo: ICU The high probability of a clinically significant, sudden or life threatening deterioration of the [multi] system(s) required my full and direct attention, intervention and personal management. The aggregate critical care time was [32] minutes. This time is in addition to time spent performing reported procedures but includes the following: [x] Data Review and interpretation [x] Patient assessment and monitoring of vital signs [x] Documentation [x] Medication orders and management History Interval history: This is a 60-year-old male with diabetes mellitus, hypertension, hyperlipidemia, chronic renal insufficiency presents to the emergency department on 01/23 with shortness of breath, fevers chills, loss of smell and taste and body aches for the past 3 days via EMS. Per EMS patient's oxygen saturation on room air was 50% and after being placed on nonrebreather it increased 75%. Upon arrival to the emergency department patient was being bagged by EMS. In the emergency room patient was intubated due to severe hypoxia, increased work of breathing and lethargy. Patient was sedated on propofol and fentanyl. Patient presented with fever, tachycardia, tachypnea and acute hypoxic respiratory failure with PNA on CXR meeting Sepsis criteria. Lab work in the emergency department revealed hyponatremia, hypokalemia, hypochloremia, elevated CR/BUN and CXR showed bilateral pneumonia. Patient was admitted to the hospital service as a COVID-19 PUI with consults to infectious disease, nephrology and critical care medicine. Sepsis COVID-19 PUI Bilateral pneumonia Acute hypoxic respiratory failure Acute kidney injury Hyponatremia Hypokalemia Hypochloremia Diabetes mellitus Hypertension Hyperlipidemia Hyperlipidemia Chronic renal insufficiency 01/24/2021 -Patient is intubated and sedated, patient is positive for COVID-19 infection. ID was consulted and put on dexamethasone and remdesivir. Patient has DEISI and nephrology is following. Creatinine stable, patient is urinating. Discussed with nephrology and he is okay with remdesivir. Pulmonary critical care is following for his vent setting. PEEP of 8 and FiO2 of 85%. Patient was alert and off sedatives. 01/25/2021; patient is intubated and on mechanical ventilation. Continue with treatment of Covid. Nephrology and ID is following. Pulmonary is following for vent management 01/26: Remains on mechanical ventilation and [facility] increased his PEEP. [facility] has ordered Precedex for sedation. Possibly need to prone this p.m. No acute events reported overnight. This morning his D-dimer is greater than 10,000 and we have started him on Lovenox 120 mg daily. Nutrition has been consulted for initiation of tube feedings. Patient remains sedated on propofol 40 and fentan yl for the time my examination this morning. Hospitalist Physical - Constitutional Vitals: Temp Pulse Resp BP Pulse Ox 100.3 F H 82 16 100/64 95 01/26/21 04:00 01/26/21 16:00 01/25/21 16:00 01/26/21 14:34 01/26/21 10:09 General appearance: Present: no acute distress - EENT Eyes: Present: PERRL ENT: hearing intact, poor dentition - Neck Neck: Present: normal ROM - Respiratory Respiratory effort: normal Respiratory: bilateral: diminished - Cardiovascular Rhythm: regular Heart Sounds: Present: S1 & S2. Absent: systolic murmur, diastolic murmur - Extremities Extremities: no ischemia, pulses intact, pulses symmetrical, No edema, normal temperature, normal color Peripheral Pulses: within normal limits - Abdominal General gastrointestinal: soft, non-tender, non-distended, normal bowel sounds - Integumentary Integumentary: Present: warm, dry - Psychiatric Psychiatric: other (Sedated) - Neurologic Neurologic: other HEART Score - HEART Score Risk factors: 1-2 risk factors Troponin: < normal limit - Critical Actions Critical Actions: 0-3 pts:0.9-1.7%risk of adverse cardiac event.Candidate for d ischarge Results - Labs CBC & Chem 7: 01/26/21 05:47 01/26/21 05:47 Labs: Laboratory Last Values WBC 7.4 K/mm3 (4.5-11.0) 01/26/21 05:47 RBC 3.67 M/mm3 (3.65-5.03) 01/26/21 05:47 Hgb 12.0 gm/dl (11.8-15.2) 01/26/21 05:47 Hct 35.3 % (35.5-45.6) L 01/26/21 05:47 MCV 96 fl (84-94) H 01/26/21 05:47 MCH 33 pg (28-32) H 01/26/21 05:47 MCHC 34 % (32-34) 01/26/21 05:47 RDW 14.5 % (13.2-15.2) 01/26/21 05:47 Plt Count 358 K/mm3 (140-440) 01/26/21 05:47 Lymph % (Auto) 6.6 % (13.4-35.0) L 01/22/21 22:57 Tillman % (Auto) 5.5 % (0.0-7.3) 01/22/21 22:57 Eos % (Auto) 0.0 % (0.0-4.3) 01/22/21 22:57 Baso % (Auto) 0.3 % (0.0-1.8) 01/22/21 22:57 Lymph # (Auto) 0.5 K/mm3 (1.2-5.4) L 01/22/21 22:57 Tillman # (Auto) 0.4 K/mm3 (0.0-0.8) 01/22/21 22:57 Eos # (Auto) 0.0 K/mm3 (0.0-0.4) 01/22/21 22:57 Baso # (Auto) 0.0 K/mm3 (0.0-0.1) 01/22/21 22:57 Add Manual Diff Complete 01/26/21 05:47 Total Counted 100 01/26/21 05:47 Seg Neutrophils % [employer] 01/26/21 05:47 Seg Neuts % (Manual) 96.0 % (40.0-70.0) H 01/26/21 05:47 Lymphocytes % (Manual) 2.0 % (13.4-35.0) L 01/26/21 05:47 Monocytes % (Manual) 2.0 % (0.0-7.3) 01/26/21 05:47 Eosinophils % (Manual) 2.0 % (0.0-4.3) 01/24/21 05:05 Nucleated RBC % Not Reportable 01/26/21 05:47 Seg Neutrophils # 6.8 K/mm3 (1.8-7.7) 01/22/21 22:57 Seg Neutrophils # Man 7.1 K/mm3 (1.8-7.7) 01/26/21 05:47 Band Neutrophils # 0.0 K/mm3 01/26/21 05:47 Lymphocytes # (Manual) 0.1 K/mm3 (1.2-5.4) L 01/26/21 05:47 Abs React Lymphs (Man) 0.0 K/mm3 01/26/21 05:47 Monocytes # (Manual) 0.1 K/mm3 (0.0-0.8) 01/26/21 05:47 Eosinophils # (Manual) 0.0 K/mm3 (0.0-0.4) 01/26/21 05:47 Basophils # (Manual) 0.0 K/mm3 (0.0-0.1) 01/26/21 05:47 Metamyelocytes # 0.0 K/mm3 01/26/21 05:47 Myelocytes # 0.0 K/mm3 01/26/21 05:47 Promyelocytes # 0.0 K/mm3 01/26/21 05:47 Blast Cells # 0.0 K/mm3 01/26/21 05:47 WBC Morphology Not Reportable 01/26/21 05:47 Hypersegmented Neuts Not Reportable 01/26/21 05:47 Hyposegmented Neuts Not Reportable 01/26/21 05:47 Hypogranular Neuts Not Reportable 01/26/21 05:47 Smudge Cells Not Reportable 01/26/21 05:47 Toxic Granulation Not Reportable 01/26/21 05:47 Toxic Vacuolation Not Reportable 01/26/21 05:47 Dohle Bodies Not Reportable 01/26/21 05:47 Pelger-Huet Anomaly Not Reportable 01/26/21 05:47 Fátima Rods Not Reportable 01/26/21 05:47 Platelet Estimate Consistent w auto 01/26/21 05:47 Clumped Platelets Not Reportable 01/26/21 05:47 Plt Clumps, EDTA Not Reportable 01/26/21 05:47 Large Platelets Not Reportable 01/26/21 05:47 Giant Platelets Not Reportable 01/26/21 05:47 Platelet Satelliting Not Reportable 01/26/21 05:47 Plt Morphology Comment Not Reportable 01/26/21 05:47 RBC Morphology Not Reportable 01/26/21 05:47 Dimorphic RBCs Not Reportable 01/26/21 05:47 Polychromasia Not Reportable 01/26/21 05:47 Hypochromasia Not Reportable 01/26/21 05:47 Poikilocytosis Not Reportable 01/26/21 05:47 Anisocytosis Few 01/26/21 05:47 Microcytosis Not Reportable 01/26/21 05:47 Macrocytosis Not Reportable 01/26/21 05:47 Spherocytes Not Reportable 01/26/21 05:47 Pappenheimer Bodies Not Reportable 01/26/21 05:47 Sickle Cells Not Reportable 01/26/21 05:47 Target Cells Not Reportable 01/26/21 05:47 Tear Drop Cells Rare 01/26/21 05:47 Ovalocytes Not Reportable 01/26/21 05:47 Helmet Cells Not Reportable 01/26/21 05:47 Potter-Udell Bodies Not Reportable 01/26/21 05:47 [place] Rings Not Reportable 01/26/21 05:47 Ludmila Cells Not Reportable 01/26/21 05:47 Bite Cells Not Reportable 01/26/21 05:47 Crenated Cell Not Reportable 01/26/21 05:47 Elliptocytes Not Reportable 01/26/21 05:47 Acanthocytes (Spur) Not Reportable 01/26/21 05:47 Rouleaux Not Reportable 01/26/21 05:47 Hemoglobin C Crystals Not Reportable 01/26/21 05:47 Schistocytes Rare 01/26/21 05:47 Malaria parasites Not Reportable 01/26/21 05:47 Aquiles Bodies Not Reportable 01/26/21 05:47 Hem Pathologist Commnt No 01/26/21 05:47 D-Dimer > 56645 ng/mlDDU (0-234) H 01/26/21 05:47 ABG pH 7.357 (7.320-7.450) 01/26/21 03:43 POC ABG pCO2 47.6 mmHg (32.0-48.0) 01/26/21 03:43 ABG pCO2 39.5 mm Hg 01/23/21 Unknown POC ABG pO2 70.0 mmHg (83-108) L 01/26/21 03:43 ABG pO2 165.4 mm Hg (80.0-90.0) H 01/23/21 Unknown POC ABG HCO3 26.1 01/26/21 03:43 ABG HCO3 22.4 mmol/L (20.0-26.0) 01/23/21 Unknown ABG O2 Saturation 92.9 (0-100) 01/26/21 03:43 ABG O2 Content 19.6 (0.0-44) 01/23/21 Unknown POC ABG Base Excess 0.2 01/26/21 03:43 ABG Base Excess -2.5 mmol/L (-2.0-3.0) L 01/23/21 Unknown ABG Hemoglobin 12.5 (12.0-17.5) 01/26/21 03:43 ABG Oxyhemoglobin 91.9 (94-98) L 01/26/21 03:43 ABG Carboxyhemoglobin 1.7 % (0.0-5.0) 01/23/21 Unknown ABG Methemoglobin 0.3 (0.0-1.5) 01/26/21 03:43 ABG Sodium 142.4 mmol/L (136.0-145.0) 01/26/21 03:43 ABG Potassium 4.4 mmol/L (3.40-4.50) 01/26/21 03:43 ABG Chloride 109.0 mmol/L (98-107) H 01/26/21 03:43 ABG Glucose 165 mg/dL (65-95) H 01/26/21 03:43 Oxyhemoglobin 96.8 % (95.0-99.0) 01/23/21 Unknown Carboxyhemoglobin 0.8 (0.5-1.5) 01/26/21 03:43 FiO2 100 % 01/23/21 Unknown FiO2 % 90.0 01/26/21 03:43 Sodium 143 mmol/L (137-145) 01/26/21 05:47 Sodium 143 mmol/L (137-145) 01/26/21 05:47 Potassium 4.5 mmol/L (3.6-5.0) 01/26/21 05:47 Potassium 4.5 mmol/L (3.6-5.0) 01/26/21 05:47 Chloride 106.7 mmol/L (98-107) 01/26/21 05:47 Chloride 107.1 mmol/L (98-107) H 01/26/21 05:47 Carbon Dioxide 26 mmol/L (22-30) 01/26/21 05:47 Carbon Dioxide 26 mmol/L (22-30) 01/26/21 05:47 Anion Gap 14 mmol/L 01/26/21 05:47 Anion Gap 15 mmol/L 01/26/21 05:47 BUN 56 mg/dL (9-20) H 01/26/21 05:47 BUN 57 mg/dL (9-20) H 01/26/21 05:47 Creatinine 2.2 mg/dL (0.8-1.3) H 01/26/21 05:47 Creatinine 2.2 mg/dL (0.8-1.3) H 01/26/21 05:47 Estimated GFR 37 ml/min 01/26/21 05:47 Estimated GFR 37 ml/min 01/26/21 05:47 BUN/Creatinine Ratio 25 % 01/26/21 05:47 BUN/Creatinine Ratio 26 % 01/26/21 05:47 Glucose 185 mg/dL (75-100) H 01/26/21 05:47 Glucose 188 mg/dL (75-100) H 01/26/21 05:47 POC Glucose 129 mg/dL (70-105) H 01/26/21 11:34 Lactic Acid 1.90 mmol/L (0.7-2.0) 01/24/21 14:38 Calcium 8.0 mg/dL (8.4-10.2) L 01/26/21 05:47 Calcium 8.1 mg/dL (8.4-10.2) L 01/26/21 05:47 Ferritin 1178.0 ng/mL (30.0-300.0) H 01/26/21 05:47 Total Bilirubin 1.50 mg/dL (0.1-1.2) H 01/26/21 05:47 AST 37 units/L (5-40) 01/26/21 05:47 ALT 29 units/L (7-56) 01/26/21 05:47 Alkaline Phosphatase 70 units/L (35-129) 01/26/21 05:47 Lactate Dehydrogenase 588 units/L (91-180) H 01/26/21 05:47 C-Reactive Protein 40.10 mg/dL (0.00-1.30) H 01/26/21 05:47 Total Protein 7.2 g/dL (6.3-8.2) 01/26/21 05:47 Albumin 2.2 g/dL (3.9-5) L 01/26/21 05:47 Albumin/Globulin Ratio 0.4 % 01/26/21 05:47 Procalcitonin 0.92 ng/mL (<0.15) 01/22/21 22:57 Arterial Blood Glucose 165 mg/dL (65-95) H 01/26/21 03:43 Arterial Blood Ionized Calcium 4.5 mg/dL (4.6-5.3) L 01/26/21 03:43 Urine Color Nehal (Yellow) 01/22/21 22:39 Urine Turbidity Cloudy (Clear) 01/22/21 22:39 Urine pH 5.0 (5.0-7.0) 01/22/21 22:39 Ur Specific [place] 1.017 (1.003-1.030) 01/22/21 22:39 Urine Protein 100 mg/dl mg/dL (Negative) 01/22/21 22:39 Urine Glucose (UA) Neg mg/dL (Negative) 01/22/21 22:39 Urine Ketones Neg mg/dL (Negative) 01/22/21 22:39 Urine Blood Mod (Negative) 01/22/21 22:39 Urine Nitrite Neg (Negative) 01/22/21 22:39 Urine Bilirubin Neg (Negative) 01/22/21 22:39 Urine Urobilinogen 2.0 mg/dL (<2.0) 01/22/21 22:39 Ur Leukocyte Esterase Mod (Negative) 01/22/21 22:39 Urine WBC (Auto) < 1.0 /HPF (0.0-6.0) 01/22/21 22:39 Urine RBC (Auto) < 1.0 /HPF (0.0-6.0) 01/22/21 22:39 U Epithel Cells (Auto) < 1.0 /HPF (0-13.0) 01/22/21 22:39 Urine Creatinine 301.2 mg/dL (0.1-20.0) H 01/22/21 22:39 Urine Sodium 28 mmol/L 01/22/21 22:39 Coronavirus (PCR) Positive (Negative) A 01/23/21 08:41 Microbiology: Microbiology 01/22/21 22:57 Peripheral/Venous Blood Culture - Preliminary NO GROWTH AFTER 72 HOURS 01/22/21 22:52 Peripheral/Venous Blood Culture - Preliminary NO GROWTH AFTER 72 HOURS Black/IV: Voiding Method Indwelling Catheter Active Medications - Current Medications Current Medications: Generic Name Dose Route Start Last Admin Trade Name Freq PRN Reason Stop Dose Admin Acetaminophen 650 mg 01/23/21 02:25 Acetaminophen 650 Mg Rect Supp MT Q4H PRN Pain, Mild (1-3) Acetaminophen 650 mg 01/24/21 12:58 01/26/21 15:08 Acetaminophen 325 Mg/10.15 Ml Oral Liqd Unit Dose FEEDTUBE 650 mg Q6H PRN Administration Pain, Mild (1-3) Lipase/Protease/Amylase 1 each 01/26/21 14:25 Lipase 10,500/Protease 25,000/Amylase 43,750 (Units) Dr Cap FEEDTUBE PRN PRN For Clogged Feeding Tube Dexamethasone 6 mg 01/23/21 22:00 01/26/21 11:08 Dexamethasone 4 Mg/Ml Vial IV 02/01/21 22:01 6 mg BID CECE Administration Enoxaparin Sodium 120 mg 01/26/21 11:00 01/26/21 15:09 Enoxaparin 120 Mg/0.8 Ml Inj SUB-Q 120 mg Q24HR CECE Administration Famotidine 20 mg 01/24/21 10:00 01/26/21 10:11 Famotidine 20 Mg/2 Ml Inj IV 20 mg DAILY CECE Administration Fentanyl 50 mcg 01/22/21 22:39 Fentanyl 100 Mcg/2 Ml Inj IV Q10MIN PRN ANALGESIA Hydrophilic Ointment 1 applic 01/22/21 22:39 Lip Therapy Vaseline TP Q2HR PRN Dry Lips Fentanyl Citrate 2,000 mcg in 100 mls @ 6.124 mls/hr 01/22/21 23:00 01/26/21 15:07 Fentanyl Drip Premix IV 4 mcg/kg/hr TITR CECE 24.494 mls/hr Administration Protocol 1 MCG/KG/HR Propofol 1,000 mg in 100 mls @ 3.674 mls/hr 01/22/21 23:45 01/26/21 14:00 Diprivan 10 Mg/Ml IV 35 mcg/kg/min TITR CECE 25.719 mls/hr Administration Protocol 5 MCG/KG/MIN Azithromycin 500 mg in 250 mls @ 250 mls/hr 01/23/21 22:00 01/25/21 21:59 Zithromax/Ns IV 01/27/21 22:59 250 mls/hr Q24H CECE Administration Sodium Chloride 1,000 mls @ 50 mls/hr 01/23/21 08:00 01/26/21 15:10 Nacl 0.9% 1000 Ml IV 50 mls/hr DIRECT CECE Administration Ceftriaxone Sodium 2 gm in 100 mls @ 200 mls/hr 01/23/21 22:00 01/25/21 21:20 Rocephin/Ns 2 Gm/100 Ml IV 01/27/21 22:29 200 mls/hr Q24H CECE Administration Protocol REMDESIVIR 100 mg/ Sodium 250 mls @ 500 mls/hr 01/24/21 21:00 01/25/21 10:51 Chloride IV 01/28/21 21:29 Not Given Q24HR@2100 CECE Dexmedetomidine HCl 400 mcg/ 104 mls @ 6.368 mls/hr 01/26/21 11:00 01/26/21 12:57 Sodium Chloride IV 0.4 mcg/kg/hr TITRATE CECE 12.737 mls/hr Administration Protocol 0.2 MCG/KG/HR Multi-Ingred Cream/Lotion/Oil/Oint 1 applic 01/22/21 22:39 Mineral Oil/Petrolatum, White Ophth Oint 3.5 Gm OU Q4HR PRN Dry Eye(s) Ondansetron HCl 4 mg 01/23/21 02:17 Ondansetron 4 Mg/2 Ml Inj IV Q8H PRN Nausea And Vomiting Simple Syrup 15 ml 01/26/21 14:25 Simple Syrup 15 Ml FEEDTUBE PRN PRN Hypoglycemia Simple Syrup 30 ml 01/26/21 14:25 Simple Syrup 15 Ml FEEDTUBE PRN PRN Hypoglycemia Sodium Bicarbonate 325 mg 01/26/21 14:25 Sodium Bicarbonate 325 Mg Tab FEEDTUBE PRN PRN For Clogged Feeding Tube Sodium Chloride 50 ml 01/23/21 21:00 01/25/21 00:00 Sodium Chloride 0.9% 50 Ml Ivpb IV 01/28/21 21:01 Not Given Q24HR@2100 [facility] Nutrition/Malnutrition Assess - Dietary Evaluation Nutrition/Malnutrition Findings: Nutrition Notes Start: 01/26/21 13:59 Freq: Status: Active Protocol: Document 01/26/21 14:00 CW (Rec: 01/26/21 14:24 CW [id number]) Nutrition Notes Need for Assessment generated from: MD Order Initial or Follow up Assessment Current Diagnosis Acute Kidney Injury,Diabetes, Hypertension,Respiratory Failure,Hyperlipidemia Other Pertinent Diagnosis SOB, Covid PUI, pneu, hidradentitis Current Diet TF Labs/Tests BUN 56 Cr 2.2 BG 188 Pertinent Medications Decadron Propofol at 29.393 ml/hr (776 kcal) Height 5 ft 8 in Weight 122.47 kg [place] Body Weight (kg) 70.00 BMI 41.0 Weight Status Morbidly Obese Subjective/Other Information MD verbal consult for TF. Pt on mechanical vent. Recommend intitiate TF. Pt may be proned for 12 hr. Run at 20 ml/hr when proned. Pt receiving 776 kcal from propofol. 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 Yes Is Patient Ambulatory and/or Out of Bed No REE-([facility]-confined to bed) 2403.516 Kcal/Kg value to use for calculation 16 Approximate Energy Requirements Using 1960 kcal/Kg Calculation Used for Recommendations Kcal/kg Additional Notes protein needs: 175g (< 2.5 g/ kgIBW) fluid needs: 1 ml/kcal Nutrition Intervention Change Diet Order: TF Nutrition Support: If running continuous feed x 24 hrs without proning: Nepro at 40 ml/hr with a free water flush of 300 ml q4h If in prone position x 12/hr day: While in prone position: Nepro at 20 ml/hr with free water flush of 50 ml q4h. While in supine position: Nepro at 60 ml/hr with a free water flush of 300 ml q4h Kcal 1,728 Protein (gm) 78 Fluid (mL) 698 Goal #1 Initiate TF Goal #2 Meet kcal and protein needs as best as possible via TF Anticipated Discharge Needs: unable to determine at this time Follow-Up By: 01/28/21 Additional Comments F/U TF start, vent status, renal related labs <MONO SILVA - Last Filed: 01/27/21 07:02> Assessment and Plan Assessment and plan: I saw and evaluated the patient. I agree with the findings and the plan of care as documented in the Nurse Practitioner's~note, with the following corrections and additions. Hospitalist Physical - Constitutional Vitals: Temp Pulse Resp BP Pulse Ox 99.4 F 75 18 103/55 97 01/27/21 03:25 01/27/21 04:17 01/27/21 04:00 01/27/21 04:17 01/27/21 04:17 Results - Labs CBC & Chem 7: 01/27/21 05:29 01/27/21 05:29 Labs: Laboratory Last Values WBC 6.6 K/mm3 (4.5-11.0) 01/27/21 05:29 RBC 3.58 M/mm3 (3.65-5.03) L 01/27/21 05:29 Hgb 11.7 gm/dl (11.8-15.2) L 01/27/21 05:29 Hct 34.9 % (35.5-45.6) L 01/27/21 05:29 MCV 97 fl (84-94) H 01/27/21 05:29 MCH 33 pg (28-32) H 01/27/21 05:29 MCHC 34 % (32-34) 01/27/21 05:29 RDW 15.2 % (13.2-15.2) 01/27/21 05:29 Plt Count 385 K/mm3 (140-440) 01/27/21 05:29 Lymph % (Auto) 6.6 % (13.4-35.0) L 01/22/21 22:57 Tillman % (Auto) 5.5 % (0.0-7.3) 01/22/21 22:57 Eos % (Auto) 0.0 % (0.0-4.3) 01/22/21 22:57 Baso % (Auto) 0.3 % (0.0-1.8) 01/22/21 22:57 Lymph # (Auto) 0.5 K/mm3 (1.2-5.4) L 01/22/21 22:57 [place] # (Auto) 0.4 K/mm3 (0.0-0.8) 01/22/21 22:57 Eos # (Auto) 0.0 K/mm3 (0.0-0.4) 01/22/21 22:57 Baso # (Auto) 0.0 K/mm3 (0.0-0.1) 01/22/21 22:57 Add Manual Diff Complete 01/26/21 05:47 Total Counted 100 01/26/21 05:47 Seg Neutrophils % Cement Truck Driver 01/27/21 05:29 Seg Neuts % (Manual) 96.0 % (40.0-70.0) H 01/26/21 05:47 Lymphocytes % (Manual) 2.0 % (13.4-35.0) L 01/26/21 05:47 Monocytes % (Manual) 2.0 % (0.0-7.3) 01/26/21 05:47 Eosinophils % (Manual) 2.0 % (0.0-4.3) 01/24/21 05:05 Nucleated RBC % Not Reportable 01/26/21 05:47 Seg Neutrophils # 6.8 K/mm3 (1.8-7.7) 01/22/21 22:57 Seg Neutrophils # Man 7.1 K/mm3 (1.8-7.7) 01/26/21 05:47 Band Neutrophils # 0.0 K/mm3 01/26/21 05:47 Lymphocytes # (Manual) 0.1 K/mm3 (1.2-5.4) L 01/26/21 05:47 Abs React Lymphs (Man) 0.0 K/mm3 01/26/21 05:47 Monocytes # (Manual) 0.1 K/mm3 (0.0-0.8) 01/26/21 05:47 Eosinophils # (Manual) 0.0 K/mm3 (0.0-0.4) 01/26/21 05:47 Basophils # (Manual) 0.0 K/mm3 (0.0-0.1) 01/26/21 05:47 Metamyelocytes # 0.0 K/mm3 01/26/21 05:47 Myelocytes # 0.0 K/mm3 01/26/21 05:47 Promyelocytes # 0.0 K/mm3 01/26/21 05:47 Blast Cells # 0.0 K/mm3 01/26/21 05:47 WBC Morphology Not Reportable 01/26/21 05:47 Hypersegmented Neuts Not Reportable 01/26/21 05:47 Hyposegmented Neuts Not Reportable 01/26/21 05:47 Hypogranular Neuts Not Reportable 01/26/21 05:47 Smudge Cells Not Reportable 01/26/21 05:47 Toxic Granulation Not Reportable 01/26/21 05:47 Toxic Vacuolation Not Reportable 01/26/21 05:47 Dohle Bodies Not Reportable 01/26/21 05:47 Pelger-Huet Anomaly Not Reportable 01/26/21 05:47 Fátima Rods Not Reportable 01/26/21 05:47 Platelet Estimate Consistent w auto 01/26/21 05:47 Clumped Platelets Not Reportable 01/26/21 05:47 Plt Clumps, EDTA Not Reportable 01/26/21 05:47 Large Platelets Not Reportable 01/26/21 05:47 Giant Platelets Not Reportable 01/26/21 05:47 Platelet Satelliting Not Reportable 01/26/21 05:47 Plt Morphology Comment Not Reportable 01/26/21 05:47 RBC Morphology Not Reportable 01/26/21 05:47 Dimorphic RBCs Not Reportable 01/26/21 05:47 Polychromasia Not Reportable 01/26/21 05:47 Hypochromasia Not Reportable 01/26/21 05:47 Poikilocytosis Not Reportable 01/26/21 05:47 Anisocytosis Few 01/26/21 05:47 Microcytosis Not Reportable 01/26/21 05:47 Macrocytosis Not Reportable 01/26/21 05:47 Spherocytes Not Reportable 01/26/21 05:47 Pappenheimer Bodies Not Reportable 01/26/21 05:47 Sickle Cells Not Reportable 01/26/21 05:47 Target Cells Not Reportable 01/26/21 05:47 Tear Drop Cells Rare 01/26/21 05:47 Ovalocytes Not Reportable 01/26/21 05:47 Helmet Cells Not Reportable 01/26/21 05:47 Potter-Udell Bodies Not Reportable 01/26/21 05:47 [place] Rings Not Reportable 01/26/21 05:47 Ludmila Cells Not Reportable 01/26/21 05:47 Bite Cells Not Reportable 01/26/21 05:47 Crenated Cell Not Reportable 01/26/21 05:47 Elliptocytes Not Reportable 01/26/21 05:47 Acanthocytes (Spur) Not Reportable 01/26/21 05:47 Rouleaux Not Reportable 01/26/21 05:47 Hemoglobin C Crystals Not Reportable 01/26/21 05:47 Schistocytes Rare 01/26/21 05:47 Malaria parasites Not Reportable 01/26/21 05:47 Aquiles Bodies Not Reportable 01/26/21 05:47 Hem Pathologist Commnt No 01/26/21 05:47 D-Dimer > 79930 ng/mlDDU (0-234) H 01/26/21 05:47 ABG pH 7.319 (7.320-7.450) L 01/27/21 02:45 POC ABG pCO2 50.7 mmHg (32.0-48.0) H 01/27/21 02:45 ABG pCO2 39.5 mm Hg 01/23/21 Unknown POC ABG pO2 63.0 mmHg (83-108) L 01/27/21 02:45 ABG pO2 165.4 mm Hg (80.0-90.0) H 01/23/21 Unknown POC ABG HCO3 25.5 01/27/21 02:45 ABG HCO3 22.4 mmol/L (20.0-26.0) 01/23/21 Unknown ABG O2 Saturation 89.9 (0-100) 01/27/21 02:45 ABG O2 Content 19.6 (0.0-44) 01/23/21 Unknown POC ABG Base Excess -1.1 01/27/21 02:45 ABG Base Excess -2.5 mmol/L (-2.0-3.0) L 01/23/21 Unknown ABG Hemoglobin 12.2 (12.0-17.5) 01/27/21 02:45 ABG Oxyhemoglobin 91.9 (94-98) L 01/26/21 03:43 ABG Carboxyhemoglobin 1.7 % (0.0-5.0) 01/23/21 Unknown ABG Methemoglobin 0.3 (0.0-1.5) 01/26/21 03:43 ABG Sodium 145.2 mmol/L (136.0-145.0) H 01/27/21 02:45 ABG Potassium 5.1 mmol/L (3.40-4.50) H 01/27/21 02:45 ABG Chloride 114.0 mmol/L (98-107) H 01/27/21 02:45 ABG Glucose 178 mg/dL (65-95) H 01/27/21 02:45 Oxyhemoglobin 96.8 % (95.0-99.0) 01/23/21 Unknown Carboxyhemoglobin 0.8 (0.5-1.5) 01/26/21 03:43 FiO2 100 % 01/23/21 Unknown FiO2 % 60 01/27/21 02:45 Sodium 142 mmol/L (137-145) 01/27/21 05:29 Potassium 5.2 mmol/L (3.6-5.0) H 01/27/21 05:29 Chloride 109.6 mmol/L (98-107) H 01/27/21 05:29 Carbon Dioxide 25 mmol/L (22-30) 01/27/21 05:29 Anion Gap 13 mmol/L 01/27/21 05:29 BUN 67 mg/dL (9-20) H 01/27/21 05:29 Creatinine 2.8 mg/dL (0.8-1.3) H 01/27/21 05:29 Estimated GFR 28 ml/min 01/27/21 05:29 BUN/Creatinine Ratio 24 % 01/27/21 05:29 Glucose 195 mg/dL (75-100) H 01/27/21 05:29 POC Glucose 155 mg/dL (70-105) H 01/26/21 23:20 Lactic Acid 1.90 mmol/L (0.7-2.0) 01/24/21 14:38 Calcium 7.9 mg/dL (8.4-10.2) L 01/27/21 05:29 Magnesium 4.00 mg/dL (1.7-2.3) H 01/27/21 05:29 Ferritin 1178.0 ng/mL (30.0-300.0) H 01/26/21 05:47 Total Bilirubin 1.50 mg/dL (0.1-1.2) H 01/26/21 05:47 AST 37 units/L (5-40) 01/26/21 05:47 ALT 29 units/L (7-56) 01/26/21 05:47 Alkaline Phosphatase 70 units/L (35-129) 01/26/21 05:47 Lactate Dehydrogenase 588 units/L (91-180) H 01/26/21 05:47 C-Reactive Protein 40.10 mg/dL (0.00-1.30) H 01/26/21 05:47 Total Protein 7.2 g/dL (6.3-8.2) 01/26/21 05:47 Albumin 2.2 g/dL (3.9-5) L 01/26/21 05:47 Albumin/Globulin Ratio 0.4 % 01/26/21 05:47 Triglycerides 160 mg/dL (2-149) H 01/27/21 05:29 Procalcitonin 0.92 ng/mL (<0.15) 01/22/21 22:57 Arterial Blood Glucose 178 mg/dL (65-95) H 01/27/21 02:45 Arterial Blood Ionized Calcium 4.6 mg/dL (4.6-5.3) 01/27/21 02:45 Urine Color Nehal (Yellow) 01/22/21 22:39 Urine Turbidity Cloudy (Clear) 01/22/21 22:39 Urine pH 5.0 (5.0-7.0) 01/22/21 22:39 Ur Specific [place] 1.017 (1.003-1.030) 01/22/21 22:39 Urine Protein 100 mg/dl mg/dL (Negative) 01/22/21 22:39 Urine Glucose (UA) Neg mg/dL (Negative) 01/22/21 22:39 Urine Ketones Neg mg/dL (Negative) 01/22/21 22:39 Urine Blood Mod (Negative) 01/22/21 22:39 Urine Nitrite Neg (Negative) 01/22/21 22:39 Urine Bilirubin Neg (Negative) 01/22/21 22:39 Urine Urobilinogen 2.0 mg/dL (<2.0) 01/22/21 22:39 Ur Leukocyte Esterase Mod (Negative) 01/22/21 22:39 Urine WBC (Auto) < 1.0 /HPF (0.0-6.0) 01/22/21 22:39 Urine RBC (Auto) < 1.0 /HPF (0.0-6.0) 01/22/21 22:39 U Epithel Cells (Auto) < 1.0 /HPF (0-13.0) 01/22/21 22:39 Urine Creatinine 301.2 mg/dL (0.1-20.0) H 01/22/21 22:39 Urine Sodium 28 mmol/L 01/22/21 22:39 Coronavirus (PCR) Positive (Negative) A 01/23/21 08:41 Microbiology: Microbiology 01/22/21 22:57 Peripheral/Venous Blood Culture - Preliminary NO GROWTH AFTER 4 DAYS 01/22/21 22:52 Peripheral/Venous Blood Culture - Preliminary NO GROWTH AFTER 4 DAYS Black/IV: Voiding Method Indwelling Catheter Active Medications - Current Medications Current Medications: Generic Name Dose Route Start Last Admin Trade Name Freq PRN Reason Stop Dose Admin Acetaminophen 650 mg 01/23/21 02:25 Acetaminophen 650 Mg Rect Supp MT Q4H PRN Pain, Mild (1-3) Acetaminophen 650 mg 01/24/21 12:58 01/27/21 04:25 Acetaminophen 325 Mg/10.15 Ml Oral Liqd Unit Dose FEEDTUBE 650 mg Q6H PRN Administration Pain, Mild (1-3) Lipase/Protease/Amylase 1 each 01/26/21 14:25 Lipase 10,500/Protease 25,000/Amylase 43,750 (Units) Dr Claudio FEEDTUBE PRN PRN For Clogged Feeding Tube Dexamethasone 6 mg 01/23/21 22:00 01/26/21 21:53 Dexamethasone 4 Mg/Ml Vial IV 02/01/21 22:01 6 mg BID CECE Administration Enoxaparin Sodium 120 mg 01/26/21 11:00 01/26/21 15:09 Enoxaparin 120 Mg/0.8 Ml Inj SUB-Q 120 mg Q24HR CECE Administration Famotidine 20 mg 01/24/21 10:00 01/26/21 10:11 Famotidine 20 Mg/2 Ml Inj IV 20 mg DAILY CECE Administration Fentanyl 50 mcg 01/22/21 22:39 Fentanyl 100 Mcg/2 Ml Inj IV Q10MIN PRN ANALGESIA Hydrophilic Ointment 1 applic 01/22/21 22:39 Lip Therapy Vaseline TP Q2HR PRN Dry Lips Fentanyl Citrate 2,000 mcg in 100 mls @ 6.124 mls/hr 01/22/21 23:00 01/27/21 04:13 Fentanyl Drip Premix IV 4 mcg/kg/hr TITR CECE 24.494 mls/hr Administration Protocol 1 MCG/KG/HR Propofol 1,000 mg in 100 mls @ 3.674 mls/hr 01/22/21 23:45 01/27/21 06:31 Diprivan 10 Mg/Ml IV 35 mcg/kg/min TITR CECE 25.719 mls/hr Administration Protocol 5 MCG/KG/MIN Azithromycin 500 mg in 250 mls @ 250 mls/hr 01/23/21 22:00 01/26/21 21:57 Zithromax/Ns IV 01/27/21 22:59 250 mls/hr Q24H CECE Administration Sodium Chloride 1,000 mls @ 50 mls/hr 01/23/21 08:00 01/26/21 15:10 Nacl 0.9% 1000 Ml IV 50 mls/hr DIRECT CECE Administration Ceftriaxone Sodium 2 gm in 100 mls @ 200 mls/hr 01/23/21 22:00 01/26/21 21:58 Rocephin/Ns 2 Gm/100 Ml IV 01/27/21 22:29 200 mls/hr Q24H CECE Administration Protocol REMDESIVIR 100 mg/ Sodium 250 mls @ 500 mls/hr 01/24/21 21:00 01/26/21 21:41 Chloride IV 01/28/21 21:29 500 mls/hr Q24HR@2100 CECE Administration Dexmedetomidine HCl 400 mcg/ 104 mls @ 6.368 mls/hr 01/26/21 11:00 01/27/21 04:12 Sodium Chloride IV 0.4 mcg/kg/hr TITRATE CECE 12.737 mls/hr Administration Protocol 0.2 MCG/KG/HR Multi-Ingred Cream/Lotion/Oil/Oint 1 applic 01/22/21 22:39 Mineral Oil/Petrolatum, White Ophth Oint 3.5 Gm OU Q4HR PRN Dry Eye(s) Ondansetron HCl 4 mg 01/23/21 02:17 Ondansetron 4 Mg/2 Ml Inj IV Q8H PRN Nausea And Vomiting Simple Syrup 15 ml 01/26/21 14:25 Simple Syrup 15 Ml FEEDTUBE PRN PRN Hypoglycemia Simple Syrup 30 ml 01/26/21 14:25 Simple Syrup 15 Ml FEEDTUBE PRN PRN Hypoglycemia Sodium Bicarbonate 325 mg 01/26/21 14:25 Sodium Bicarbonate 325 Mg Tab FEEDTUBE PRN PRN For Clogged Feeding Tube Sodium Chloride 50 ml 01/23/21 21:00 01/26/21 21:48 Sodium Chloride 0.9% 50 Ml Ivpb IV 01/28/21 21:01 50 ml Q24HR@2100 CECE Administration Nutrition/Malnutrition Assess - Dietary Evaluation Nutrition/Malnutrition Findings: Nutrition Notes Start: 01/26/21 13:59 Freq: Status: Active Protocol: Document 01/26/21 14:00 CW (Rec: 01/26/21 14:24 CW [id number]) Nutrition Notes Need for Assessment generated from: MD Order Initial or Follow up Assessment Current Diagnosis Acute Kidney Injury,Diabetes, Hypertension,Respiratory Failure,Hyperlipidemia Other Pertinent Diagnosis SOB, Covid PUI, pneu, hidradentitis Current Diet TF Labs/Tests BUN 56 Cr 2.2 BG 188 Pertinent Medications Decadron Propofol at 29.393 ml/hr (776 kcal) Height 5 ft 8 in Weight 122.47 kg [place] Body Weight (kg) 70.00 BMI 41.0 Weight Status Morbidly Obese Subjective/Other Information verbal consult for TF. Pt on mechanical vent. Recommend intitiate TF. Pt may be proned for 12 hr. Run at 20 ml/hr when proned. Pt receiving 776 kcal from propofol. 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 Yes Is Patient Ambulatory and/or Out of Bed No REE-([facility]-confined to bed) 2403.516 Kcal/Kg value to use for calculation 16 Approximate Energy Requirements Using 1960 kcal/Kg Calculation Used for Recommendations Kcal/kg Additional Notes protein needs: 175g (< 2.5 g/ kgIBW) fluid needs: 1 ml/kcal Nutrition Intervention Change Diet Order: TF Nutrition Support: If running continuous feed x 24 hrs without proning: Nepro at 40 ml/hr with a free water flush of 300 ml q4h If in prone position x 12/hr day: While in prone position: Nepro at 20 ml/hr with free water flush of 50 ml q4h. While in supine position: Nepro at 60 ml/hr with a free water flush of 300 ml q4h Kcal 1,728 Protein (gm) 78 Fluid (mL) 698 Goal #1 Initiate TF Goal #2 Meet kcal and protein needs as best as possible via TF Anticipated Discharge Needs: unable to determine at this time Follow-Up By: 01/28/21 Additional Comments F/U TF start, vent status, renal related labs
[2021-01-26] MEDS: REMDESIVIR 100 MG in SODIUM CHLORIDE 0.9% 250ML 250 ML IV SCH (21:41)
[2021-01-26] MEDS: SODIUM CHLORIDE 0.9% 50 ML IVPB IV SCH (21:48)
[2021-01-26] MEDS: AZITHROMYCIN/NS 500 MG/250 ML 500 MG/250 ML BAG IV SCH (21:57)
[2021-01-26] MEDS: cefTRIAXone/NS 2 GM/100 ML 2 GM/100 ML BAG IV SCH (21:58)
[2021-01-27] MEDS: fentaNYL DRIP Premix 2,000 MCG/100 ML BAG IV SCH ×6 (00:01→21:55)
--- NOTE | 2021-01-27 03:44 | XRay Report ---
CHEST 1 VIEW INDICATION: follow up respiratory failure COMPARISON: One day prior. FINDINGS: Support devices: Unchanged. Heart: Stable. Lungs/Pleura: Bilateral pulmonary disease, unchanged. No new disease. IMPRESSION: 1. No significant change. Signer Name: Lavon Padilla MD Signed: 01/27/2021 3:39 AM Workstation Name: [id number]
[2021-01-27] MEDS: ACETAMINOPHEN 325 MG/10.15 ML ORAL LIQD UNIT DOSE FEEDTUBE PRN (04:25)
[2021-01-27 06:03] LABS: Hematocrit 34.9 % (35.5-45.6); Hemoglobin 11.7 gm/dl (11.8-15.2); Mean Corpuscular HGB Conc 34 % (32-34); Mean Corpuscular Volume 97 fl (84-94); Platelet Count 385 K/mm3 (140-440); Red Blood Count 3.58 M/mm3 (3.65-5.03); Red Cell Distribution Width 15.2 % (13.2-15.2)
[2021-01-27 06:15] LABS: Calcium 7.9 mg/dL (8.4-10.2)
[2021-01-27 07:16] LABS: Band Neutrophils # (Manual) 0.1 K/mm3; Platelet Estimate Consistent w Auto; RBC Morphology Normal; Total Cells Counted 100
[2021-01-27] MEDS ORDERED: DEXTROSE 50% IN WATER (25GM) 50 ML SYRINGE IV PRN (07:24)
[2021-01-27] MEDS ORDERED: SODIUM POLYSTYRENE 15 GM/60 ML ORAL LIQD PO ONE (08:00)
--- NOTE | 2021-01-27 08:48 | Progress Note ---
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 Strict I&O daily weight avoid nephrotoxins Renally dose meds Carlton Pitts MD [phone] Subjective Date of service: 01/27/21 Principal diagnosis: DEISI Interval history: spiking fever last night Objective - Vital Signs Vital signs: Vital Signs - 12hr 01/26/21 01/26/21 01/27/21 21:14 23:50 00:00 Temperature 99.5 F Pulse Rate 74 73 Respiratory 18 Rate Blood Pressure 103/62 O2 Sat by Pulse 98 Oximetry 01/27/21 01/27/21 01/27/21 00:43 03:25 04:00 Temperature 99.4 F Pulse Rate 78 75 Respiratory 18 Rate Blood Pressure 107/65 O2 Sat by Pulse 97 Oximetry 01/27/21 01/27/21 01/27/21 04:17 07:40 08:00 Temperature 99.7 F H Pulse Rate 75 64 Respiratory Rate Blood Pressure 103/55 109/65 O2 Sat by Pulse 97 99 Oximetry - Lab 01/27/21 05:29 01/27/21 05:29 Most recent lab results ABG pH 7.319 (7.320-7.450) L 01/27/21 02:45 ABG pCO2 39.5 mm Hg 01/23/21 Unknown ABG pO2 165.4 mm Hg (80.0-90.0) H 01/23/21 Unknown ABG HCO3 22.4 mmol/L (20.0-26.0) 01/23/21 Unknown ABG O2 Saturation 89.9 (0-100) 01/27/21 02:45 Calcium 7.9 mg/dL (8.4-10.2) L 01/27/21 05:29 Magnesium 4.00 mg/dL (1.7-2.3) H 01/27/21 05:29 Urine Creatinine 301.2 mg/dL (0.1-20.0) H 01/22/21 22:39 Urine Sodium 28 mmol/L 01/22/21 22:39 Medications & Allergies - Medications Allergies/Adverse Reactions: Allergies No Known Allergies Allergy (Unverified 03/12/20 13:41) Home Medications: Home Medications Medication Instructions Recorded Confirmed Last Taken Type Clindamycin [Clindamycin CAP] 300 mg PO Q8H #21 cap 03/12/20 Unknown Rx Insulin NPH/Regular [Novolin 70/30] 18 unit SUB-Q TIDAC #1 vial 03/12/20 Unknown Rx Syringe-Needle,Insulin,0.5 ml 1 box MC TID #1 box 03/12/20 Unknown Rx [Insulin Syringe/Needle 0.5 ML] Active Medications: Generic Name Dose Route Start Last Admin Trade Name Freq PRN Reason Stop Dose Admin Acetaminophen 650 mg 01/23/21 02:25 Acetaminophen 650 Mg Rect Supp SD Q4H PRN Pain, Mild (1-3) Acetaminophen 650 mg 01/24/21 12:58 01/27/21 04:25 Acetaminophen 325 Mg/10.15 Ml Oral Liqd Unit Dose FEEDTUBE 650 mg Q6H PRN Administration Pain, Mild (1-3) Lipase/Protease/Amylase 1 each 01/26/21 14:25 Lipase 10,500/Protease 25,000/Amylase 43,750 (Units) Dr González FEEDTUBE PRN PRN For Clogged Feeding Tube Dexamethasone 6 mg 01/23/21 22:00 01/26/21 21:53 Dexamethasone 4 Mg/Ml Vial IV 02/01/21 22:01 6 mg BID CECE Administration Dextrose 50 ml 01/27/21 07:24 Dextrose 50% In Water (25gm) 50 Ml Syringe IV Q30MIN PRN Hypoglycemia Protocol Enoxaparin Sodium 120 mg 01/26/21 11:00 01/26/21 15:09 Enoxaparin 120 Mg/0.8 Ml Inj SUB-Q 120 mg Q24HR CECE Administration Famotidine 20 mg 01/24/21 10:00 01/26/21 10:11 Famotidine 20 Mg/2 Ml Inj IV 20 mg DAILY CECE Administration Fentanyl 50 mcg 01/22/21 22:39 Fentanyl 100 Mcg/2 Ml Inj IV Q10MIN PRN ANALGESIA Hydrophilic Ointment 1 applic 01/22/21 22:39 Lip Therapy Vaseline TP Q2HR PRN Dry Lips Fentanyl Citrate 2,000 mcg in 100 mls @ 6.124 mls/hr 01/22/21 23:00 01/27/21 04:13 Fentanyl Drip Premix IV 4 mcg/kg/hr TITR CECE 24.494 mls/hr Administration Protocol 1 MCG/KG/HR Propofol 1,000 mg in 100 mls @ 3.674 mls/hr 01/22/21 23:45 01/27/21 06:31 Diprivan 10 Mg/Ml IV 35 mcg/kg/min TITR CECE 25.719 mls/hr Administration Protocol 5 MCG/KG/MIN Azithromycin 500 mg in 250 mls @ 250 mls/hr 01/23/21 22:00 01/26/21 21:57 Zithromax/Ns IV 01/27/21 22:59 250 mls/hr Q24H CECE Administration Sodium Chloride 1,000 mls @ 100 mls/hr 01/23/21 08:00 01/26/21 15:10 Nacl 0.9% 1000 Ml IV 50 mls/hr DIRECT CECE Administration Ceftriaxone Sodium 2 gm in 100 mls @ 200 mls/hr 01/23/21 22:00 01/26/21 21:58 Rocephin/Ns 2 Gm/100 Ml IV 01/27/21 22:29 200 mls/hr Q24H CECE Administration Protocol REMDESIVIR 100 mg/ Sodium 250 mls @ 500 mls/hr 01/24/21 21:00 01/26/21 21:41 Chloride IV 01/28/21 21:29 500 mls/hr Q24HR@2100 CECE Administration Dexmedetomidine HCl 400 mcg/ 104 mls @ 6.368 mls/hr 01/26/21 11:00 01/27/21 04:12 Sodium Chloride IV 0.4 mcg/kg/hr TITRATE CECE 12.737 mls/hr Administration Protocol 0.2 MCG/KG/HR Insulin Human Regular 0 units 01/27/21 12:00 Insulin Regular, Human 100 Units/1 Ml SUB-Q Q6H CECE Protocol Multi-Ingred Cream/Lotion/Oil/Oint 1 applic 01/22/21 22:39 Mineral Oil/Petrolatum, White Ophth Oint 3.5 Gm OU Q4HR PRN Dry Eye(s) Ondansetron HCl 4 mg 01/23/21 02:17 Ondansetron 4 Mg/2 Ml Inj IV Q8H PRN Nausea And Vomiting Simple Syrup 15 ml 01/26/21 14:25 Simple Syrup 15 Ml FEEDTUBE PRN PRN Hypoglycemia Simple Syrup 30 ml 01/26/21 14:25 Simple Syrup 15 Ml FEEDTUBE PRN PRN Hypoglycemia Sodium Bicarbonate 325 mg 01/26/21 14:25 Sodium Bicarbonate 325 Mg Tab FEEDTUBE PRN PRN For Clogged Feeding Tube Sodium Chloride 50 ml 01/23/21 21:00 01/26/21 21:48 Sodium Chloride 0.9% 50 Ml Ivpb IV 01/28/21 21:01 50 ml Q24HR@2100 CECE Administration
[2021-01-27] MEDS: FAMOTIDINE 20 MG/2 ML INJ IV SCH (09:14)
[2021-01-27] MEDS: dexAMETHasone 4 MG/ML VIAL IV SCH ×2 (09:14→21:59)
[2021-01-27] MEDS: ENOXAPARIN 120 MG/0.8 ML INJ SUB-Q SCH (09:38)
--- NOTE | 2021-01-27 11:17 | Progress Note ---
Assessment and Plan 60 y/o male with ARDS secondary most likely to COVID 19 pneumonia. 01/27/21: Continue PEEP at 14. No weaning until FiO2 is at or below 40-45%. Continue anticoagulation. Getting Remdesivir now. Continue BID steroids. Renal has increased the fluids. Monitor urine output and renal function. Overall prognosis is very very guarded, especially if renal status worsens. 01/26/21: Increase PEEP to 14. Will add Precedex therapy. If patient does not respond to increases in PEEP may need to prone. Will place patient on lovenox and will feed patient. Remdesivir coming. Continue BID steroids. Prognosis is guarded. 01/25/21: Hold on proning today. Continue BID steroids. ABG this AM was adequate. Pending abg tomorrow, may increase PEEP if not able to wean FiO2 any further. Per charting Remdesivir to arrive tomorrow. Guarded prognosis. 01/24/21: Continue BID steroids. No abg done this am but able to wean FiO2. Will obtain ABG in the am. Hold on proning for right now. Renal following, would like to diurese but they are given fluids for deisi. Agree with ID assessment and note. Guarded prognosis. 1. Increase steroids to BID given size 2. Check with ID to see if he is a candidate for remdesivir or any other exper iemental therapy 3. Hold on proning for right now 4. Renal consulted and giving IVF's currently Guarded prognosis. CCT 31 minutes. Subjective Date of service: 01/27/21 Principal diagnosis: DEISI Interval history: No acute events. Down to 60%. Not proned. Sedated appropriately. Renal function slightly worse today. Objective Vital Signs - 12hr 01/26/21 01/27/21 01/27/21 23:50 00:00 00:43 Temperature 99.5 F Pulse Rate 73 78 Respiratory 18 Rate Blood Pressure 107/65 O2 Sat by Pulse 97 Oximetry 01/27/21 01/27/21 01/27/21 03:25 04:00 04:17 Temperature 99.4 F Pulse Rate 75 75 Respiratory 18 Rate Blood Pressure 103/55 O2 Sat by Pulse 97 Oximetry 01/27/21 01/27/21 07:40 08:00 Temperature 99.7 F H Pulse Rate 64 65 Respiratory Rate Blood Pressure 109/65 O2 Sat by Pulse 99 Oximetry CBC and BMP: 01/27/21 05:29 01/27/21 05:29 ABG, PT/INR, D-dimer: ABG ABG pH 7.319 (7.320-7.450) L 01/27/21 02:45 POC ABG pCO2 50.7 mmHg (32.0-48.0) H 01/27/21 02:45 ABG pCO2 39.5 mm Hg 01/23/21 Unknown POC ABG pO2 63.0 mmHg (83-108) L 01/27/21 02:45 ABG pO2 165.4 mm Hg (80.0-90.0) H 01/23/21 Unknown POC ABG HCO3 25.5 01/27/21 02:45 ABG O2 Saturation 89.9 (0-100) 01/27/21 02:45 PT/INR, D-dimer D-Dimer > 84117 ng/mlDDU (0-234) H 01/26/21 05:47 Abnormal lab findings: Abnormal Labs 01/22/21 01/22/21 01/22/21 22:39 22:57 22:57 WBC RBC Hgb Hct MCV MCH MCHC Lymph % (Auto) 6.6 L Lymph # (Auto) 0.5 L Seg Neutrophils % 87.6 H Seg Neuts % (Manual) Lymphocytes % (Manual) Seg Neutrophils # Man Lymphocytes # (Manual) D-Dimer ABG pH POC ABG pCO2 POC ABG pO2 ABG pO2 ABG Base Excess ABG Oxyhemoglobin ABG Sodium ABG Potassium ABG Chloride ABG Glucose Carboxyhemoglobin Sodium 129 L Potassium 3.4 L Chloride 90.4 L Carbon Dioxide BUN 34 H Creatinine 1.5 H Glucose 146 H POC Glucose Lactic Acid Calcium 7.8 L Magnesium Ferritin Total Bilirubin AST 75 H ALT 57 H Lactate Dehydrogenase C-Reactive Protein Albumin 2.9 L Triglycerides Arterial Blood Glucose Arterial Blood Ionized Calcium Urine Creatinine 301.2 H Coronavirus (PCR) 01/22/21 01/22/21 01/22/21 22:57 22:57 22:57 WBC RBC Hgb Hct MCV MCH MCHC Lymph % (Auto) Lymph # (Auto) Seg Neutrophils % Seg Neuts % (Manual) Lymphocytes % (Manual) Seg Neutrophils # Man Lymphocytes # (Manual) D-Dimer 1173.89 H ABG pH POC ABG pCO2 POC ABG pO2 ABG pO2 ABG Base Excess ABG Oxyhemoglobin ABG Sodium ABG Potassium ABG Chloride ABG Glucose Carboxyhemoglobin Sodium Potassium Chloride Carbon Dioxide BUN Creatinine Glucose 149 H POC Glucose Lactic Acid 2.10 H* Calcium Magnesium Ferritin Total Bilirubin AST ALT Lactate Dehydrogenase 685 H C-Reactive Protein 30.40 H Albumin Triglycerides Arterial Blood Glucose Arterial Blood Ionized Calcium Urine Creatinine Coronavirus (PCR) 01/22/21 01/23/21 01/23/21 22:57 08:41 10:01 WBC RBC Hgb Hct MCV MCH MCHC Lymph % (Auto) Lymph # (Auto) Seg Neutrophils % Seg Neuts % (Manual) Lymphocytes % (Manual) Seg Neutrophils # Man Lymphocytes # (Manual) D-Dimer ABG pH POC ABG pCO2 POC ABG pO2 ABG pO2 ABG Base Excess ABG Oxyhemoglobin ABG Sodium ABG Potassium ABG Chloride ABG Glucose Carboxyhemoglobin Sodium 131 L Potassium Chloride 88.7 L Carbon Dioxide 18 L BUN 36 H Creatinine 1.6 H Glucose 147 H POC Glucose Lactic Acid Calcium 7.5 L Magnesium Ferritin 1207.0 H Total Bilirubin AST ALT Lactate Dehydrogenase C-Reactive Protein Albumin Triglycerides Arterial Blood Glucose Arterial Blood Ionized Calcium Urine Creatinine Coronavirus (PCR) Positive A 01/23/21 01/23/21 01/24/21 20:49 Unknown 00:10 WBC RBC Hgb Hct MCV MCH MCHC Lymph % (Auto) Lymph # (Auto) Seg Neutrophils % Seg Neuts % (Manual) Lymphocytes % (Manual) Seg Neutrophils # Man Lymphocytes # (Manual) D-Dimer ABG pH POC ABG pCO2 POC ABG pO2 ABG pO2 165.4 H ABG Base Excess -2.5 L ABG Oxyhemoglobin ABG Sodium ABG Potassium ABG Chloride ABG Glucose Carboxyhemoglobin Sodium 130 L Potassium Chloride 91.0 L Carbon Dioxide 20 L BUN 52 H Creatinine 3.8 H D Glucose 150 H POC Glucose 125 H Lactic Acid Calcium 8.0 L Magnesium Ferritin Total Bilirubin AST 42 H ALT Lactate Dehydrogenase C-Reactive Protein Albumin 2.4 L Triglycerides Arterial Blood Glucose Arterial Blood Ionized Calcium Urine Creatinine Coronavirus (PCR) 01/24/21 01/24/21 01/24/21 05:05 05:05 05:05 WBC 14.0 H RBC Hgb Hct MCV 95 H MCH 33 H MCHC Lymph % (Auto) Lymph # (Auto) Seg Neutrophils % Seg Neuts % (Manual) 91.0 H Lymphocytes % (Manual) 4.0 L Seg Neutrophils # Man 12.7 H Lymphocytes # (Manual) 0.6 L D-Dimer 6159.48 H ABG pH POC ABG pCO2 POC ABG pO2 ABG pO2 ABG Base Excess ABG Oxyhemoglobin ABG Sodium ABG Potassium ABG Chloride ABG Glucose Carboxyhemoglobin Sodium Potassium Chloride Carbon Dioxide BUN Creatinine Glucose POC Glucose Lactic Acid Calcium Magnesium Ferritin 1178.0 H Total Bilirubin AST ALT Lactate Dehydrogenase C-Reactive Protein Albumin Triglycerides Arterial Blood Glucose Arterial Blood Ionized Calcium Urine Creatinine Coronavirus (PCR) 01/24/21 01/24/21 01/24/21 05:05 05:05 05:05 WBC RBC Hgb Hct MCV MCH MCHC Lymph % (Auto) Lymph # (Auto) Seg Neutrophils % Seg Neuts % (Manual) Lymphocytes % (Manual) Seg Neutrophils # Man Lymphocytes # (Manual) D-Dimer ABG pH POC ABG pCO2 POC ABG pO2 ABG pO2 ABG Base Excess ABG Oxyhemoglobin ABG Sodium ABG Potassium ABG Chloride ABG Glucose Carboxyhemoglobin Sodium 132 L Potassium Chloride 93.1 L Carbon Dioxide 21 L BUN 57 H Creatinine 3.7 H Glucose 133 H POC Glucose Lactic Acid 2.20 H* Calcium 7.7 L Magnesium Ferritin Total Bilirubin AST ALT Lactate Dehydrogenase 658 H C-Reactive Protein 33.20 H Albumin 2.4 L Triglycerides Arterial Blood Glucose Arterial Blood Ionized Calcium Urine Creatinine Coronavirus (PCR) 01/24/21 01/24/21 01/25/21 05:34 17:35 04:15 WBC RBC Hgb Hct MCV MCH MCHC Lymph % (Auto) Lymph # (Auto) Seg Neutrophils % Seg Neuts % (Manual) Lymphocytes % (Manual) Seg Neutrophils # Man Lymphocytes # (Manual) D-Dimer ABG pH POC ABG pCO2 POC ABG pO2 63.2 L ABG pO2 ABG Base Excess ABG Oxyhemoglobin 89.6 L ABG Sodium ABG Potassium ABG Chloride ABG Glucose 165 H Carboxyhemoglobin 0.3 L Sodium Potassium Chloride Carbon Dioxide BUN Creatinine Glucose POC Glucose 136 H 137 H Lactic Acid Calcium Magnesium Ferritin Total Bilirubin AST ALT Lactate Dehydrogenase C-Reactive Protein Albumin Triglycerides Arterial Blood Glucose 165 H Arterial Blood Ionized Calcium 4.3 L Urine Creatinine Coronavirus (PCR) 01/25/21 01/25/21 01/25/21 05:40 05:40 05:59 WBC RBC Hgb Hct MCV 95 H MCH 33 H MCHC 35 H Lymph % (Auto) Lymph # (Auto) Seg Neutrophils % Seg Neuts % (Manual) 95.0 H Lymphocytes % (Manual) 3.0 L Seg Neutrophils # Man 7.8 H Lymphocytes # (Manual) 0.2 L D-Dimer ABG pH POC ABG pCO2 POC ABG pO2 ABG pO2 ABG Base Excess ABG Oxyhemoglobin ABG Sodium ABG Potassium ABG Chloride ABG Glucose Carboxyhemoglobin Sodium Potassium Chloride Carbon Dioxide BUN 67 H Creatinine 3.4 H Glucose 153 H POC Glucose 140 H Lactic Acid Calcium 7.5 L Magnesium Ferritin Total Bilirubin 1.40 H AST 62 H ALT Lactate Dehydrogenase C-Reactive Protein Albumin 2.6 L Triglycerides Arterial Blood Glucose Arterial Blood Ionized Calcium Urine Creatinine Coronavirus (PCR) 01/25/21 01/25/21 01/25/21 12:00 17:17 23:41 WBC RBC Hgb Hct MCV MCH MCHC Lymph % (Auto) Lymph # (Auto) Seg Neutrophils % Seg Neuts % (Manual) Lymphocytes % (Manual) Seg Neutrophils # Man Lymphocytes # (Manual) D-Dimer ABG pH POC ABG pCO2 POC ABG pO2 ABG pO2 ABG Base Excess ABG Oxyhemoglobin ABG Sodium ABG Potassium ABG Chloride ABG Glucose Carboxyhemoglobin Sodium Potassium Chloride Carbon Dioxide BUN Creatinine Glucose POC Glucose 143 H 149 H 132 H Lactic Acid Calcium Magnesium Ferritin Total Bilirubin AST ALT Lactate Dehydrogenase C-Reactive Protein Albumin Triglycerides Arterial Blood Glucose Arterial Blood Ionized Calcium Urine Creatinine Coronavirus (PCR) 01/26/21 01/26/21 01/26/21 03:43 05:46 05:47 WBC RBC Hgb Hct 35.3 L MCV 96 H MCH 33 H MCHC Lymph % (Auto) Lymph # (Auto) Seg Neutrophils % Seg Neuts % (Manual) 96.0 H Lymphocytes % (Manual) 2.0 L Seg Neutrophils # Man Lymphocytes # (Manual) 0.1 L D-Dimer ABG pH POC ABG pCO2 POC ABG pO2 70.0 L ABG pO2 ABG Base Excess ABG Oxyhemoglobin 91.9 L ABG Sodium ABG Potassium ABG Chloride 109.0 H ABG Glucose 165 H Carboxyhemoglobin Sodium Potassium Chloride Carbon Dioxide BUN Creatinine Glucose POC Glucose 161 H Lactic Acid Calcium Magnesium Ferritin Total Bilirubin AST ALT Lactate Dehydrogenase C-Reactive Protein Albumin Triglycerides Arterial Blood Glucose 165 H Arterial Blood Ionized Calcium 4.5 L Urine Creatinine Coronavirus (PCR) 01/26/21 01/26/21 01/26/21 05:47 05:47 05:47 WBC RBC Hgb Hct MCV MCH MCHC Lymph % (Auto) Lymph # (Auto) Seg Neutrophils % Seg Neuts % (Manual) Lymphocytes % (Manual) Seg Neutrophils # Man Lymphocytes # (Manual) D-Dimer > 69363 H ABG pH POC ABG pCO2 POC ABG pO2 ABG pO2 ABG Base Excess ABG Oxyhemoglobin ABG Sodium ABG Potassium ABG Chloride ABG Glucose Carboxyhemoglobin Sodium Potassium Chloride Carbon Dioxide BUN 57 H Creatinine 2.2 H Glucose 185 H POC Glucose Lactic Acid Calcium 8.1 L Magnesium Ferritin 1178.0 H Total Bilirubin AST ALT Lactate Dehydrogenase C-Reactive Protein Albumin Triglycerides Arterial Blood Glucose Arterial Blood Ionized Calcium Urine Creatinine Coronavirus (PCR) 01/26/21 01/26/21 01/26/21 05:47 05:47 11:34 WBC RBC Hgb Hct MCV MCH MCHC Lymph % (Auto) Lymph # (Auto) Seg Neutrophils % Seg Neuts % (Manual) Lymphocytes % (Manual) Seg Neutrophils # Man Lymphocytes # (Manual) D-Dimer ABG pH POC ABG pCO2 POC ABG pO2 ABG pO2 ABG Base Excess ABG Oxyhemoglobin ABG Sodium ABG Potassium ABG Chloride ABG Glucose Carboxyhemoglobin Sodium Potassium Chloride 107.1 H Carbon Dioxide BUN 56 H Creatinine 2.2 H Glucose 188 H POC Glucose 129 H Lactic Acid Calcium 8.0 L Magnesium Ferritin Total Bilirubin 1.50 H AST ALT Lactate Dehydrogenase 588 H C-Reactive Protein 40.10 H Albumin 2.2 L Triglycerides Arterial Blood Glucose Arterial Blood Ionized Calcium Urine Creatinine Coronavirus (PCR) 01/26/21 01/26/21 01/27/21 18:17 23:20 02:45 WBC RBC Hgb Hct MCV MCH MCHC Lymph % (Auto) Lymph # (Auto) Seg Neutrophils % Seg Neuts % (Manual) Lymphocytes % (Manual) Seg Neutrophils # Man Lymphocytes # (Manual) D-Dimer ABG pH 7.319 L POC ABG pCO2 50.7 H POC ABG pO2 63.0 L ABG pO2 ABG Base Excess ABG Oxyhemoglobin ABG Sodium 145.2 H ABG Potassium 5.1 H ABG Chloride 114.0 H ABG Glucose 178 H Carboxyhemoglobin Sodium Potassium Chloride Carbon Dioxide BUN Creatinine Glucose POC Glucose 205 H 155 H Lactic Acid Calcium Magnesium Ferritin Total Bilirubin AST ALT Lactate Dehydrogenase C-Reactive Protein Albumin Triglycerides Arterial Blood Glucose 178 H Arterial Blood Ionized Calcium Urine Creatinine Coronavirus (PCR) 01/27/21 01/27/21 01/27/21 05:29 05:29 05:29 WBC RBC 3.58 L Hgb 11.7 L Hct 34.9 L MCV 97 H MCH 33 H MCHC Lymph % (Auto) Lymph # (Auto) Seg Neutrophils % Seg Neuts % (Manual) 88.0 H Lymphocytes % (Manual) 7.0 L Seg Neutrophils # Man Lymphocytes # (Manual) 0.5 L D-Dimer ABG pH POC ABG pCO2 POC ABG pO2 ABG pO2 ABG Base Excess ABG Oxyhemoglobin ABG Sodium ABG Potassium ABG Chloride ABG Glucose Carboxyhemoglobin Sodium Potassium 5.2 H Chloride 109.6 H Carbon Dioxide BUN 67 H Creatinine 2.8 H Glucose 195 H POC Glucose Lactic Acid Calcium 7.9 L Magnesium 4.00 H Ferritin Total Bilirubin AST ALT Lactate Dehydrogenase C-Reactive Protein Albumin Triglycerides Arterial Blood Glucose Arterial Blood Ionized Calcium Urine Creatinine Coronavirus (PCR) 01/27/21 01/27/21 05:29 05:31 WBC RBC Hgb Hct MCV MCH MCHC Lymph % (Auto) Lymph # (Auto) Seg Neutrophils % Seg Neuts % (Manual) Lymphocytes % (Manual) Seg Neutrophils # Man Lymphocytes # (Manual) D-Dimer ABG pH POC ABG pCO2 POC ABG pO2 ABG pO2 ABG Base Excess ABG Oxyhemoglobin ABG Sodium ABG Potassium ABG Chloride ABG Glucose Carboxyhemoglobin Sodium Potassium Chloride Carbon Dioxide BUN Creatinine Glucose POC Glucose 176 H Lactic Acid Calcium Magnesium Ferritin Total Bilirubin AST ALT Lactate Dehydrogenase C-Reactive Protein Albumin Triglycerides 160 H Arterial Blood Glucose Arterial Blood Ionized Calcium Urine Creatinine Coronavirus (PCR)
[2021-01-27] MEDS: INSULIN REGULAR, HUMAN 100 UNITS/1 ML SUB-Q SCH ×2 (12:08→18:19)
[2021-01-27] MEDS: SODIUM CHLORIDE 0.9% 1000 ML 1,000 ML IV SCH (12:10)
--- NOTE | 2021-01-27 13:05 | Progress Note ---
Assessment and Plan Cultures: Blood culture no growth today SARS CoV2 PCR positive 01/22/2021 respiratory culture: Usual respiratory dillon Assessment: 60 year old male with history of morbid obesity admitted on 01/22/2021 secondary to 3-day history of worsening shortness of breath associated with fever, chills, loss of smell and taste: #Severe sepsis: Present on admission with low-grade fever, tachycardia, hypoxia, hypotension, elevated lactate, DEISI. likely due to bilateral pneumonia. Urinalysis negative. Procalcitonin elevated in the setting of DEISI. #Critical COVID-19 pneumonia: Patient intubated. Chest x-ray with bilateral airspace disease. Inflammatory markers elevated. D-dimer 1173. CRP 30. #Acute respiratory failure: on vent. #Transaminitis: Likely secondary to COVID-19. #DEISI: Likely secondary to COVID-19. Recommendations: -Continue steroids per pulmonary -Continue remdesivir, limited data but reports suggest no significant issues with short courses in patients with renal disease -already on the vent for >24 hrs, not a candidate for tocilizumab -Monitor inflammatory markers -Complete empiric antibiotic course tomorrow -Anticoagulation per protocol -guarded prognosis Melida Byrne MD, FACP [facility] ([facility] O: [phone] F: [phone] Subjective Date of service: 01/27/21 Principal diagnosis: DEISI Interval history: Low grade fevers. Remains on the vent. Getting Remdesivir now. Objective - Exam Narrative Exam: Physical Exam (reviewed in chart to minimize risk of transmission) Constitutional: deferred Head, Ears, Nose: deferred Eyes: deferred Neck: deferred Oral: deferred Cardiovascular: deferred Respiratory: deferred GI: deferred Musculoskeletal: deferred Skin: deferred Hem/Lymphatic: deferred Psych: deferred Neurological: deferred - Constitutional Vitals: Vital Signs Temp Pulse Resp BP Pulse Ox 99.8 F H 68 18 118/71 100 01/27/21 12:00 01/27/21 12:00 01/27/21 04:00 01/27/21 11:30 01/27/21 11:30 Temperature -Last 24 Hours Temperature 99.8 F Temperature 99.7 F Temperature 99.4 F Temperature 99.5 F Temperature 98.7 F Temperature 97.8 F Temperature 99.8 F - Labs CBC & Chem 7: 01/27/21 05:29 01/27/21 05:29 Labs: Abnormal lab results 01/26/21 01/26/21 01/26/21 Range/Units 11:34 18:17 23:20 RBC (3.65-5.03) M/mm3 Hgb (11.8-15.2) gm/dl Hct (35.5-45.6) % MCV (84-94) fl MCH (28-32) pg Seg Neuts % (Manual) (40.0-70.0) % Lymphocytes % (Manual) (13.4-35.0) % Lymphocytes # (Manual) (1.2-5.4) K/mm3 ABG pH (7.320-7.450) POC ABG pCO2 (32.0-48.0) mmHg POC ABG pO2 (83-108) mmHg ABG Sodium (136.0-145.0) mmol/L ABG Potassium (3.40-4.50) mmol/L ABG Chloride (98-107) mmol/L ABG Glucose (65-95) mg/dL Potassium (3.6-5.0) mmol/L Chloride (98-107) mmol/L BUN (9-20) mg/dL Creatinine (0.8-1.3) mg/dL Glucose (75-100) mg/dL POC Glucose 129 H 205 H 155 H (70-105) mg/dL Calcium (8.4-10.2) mg/dL Magnesium (1.7-2.3) mg/dL Triglycerides (2-149) mg/dL Arterial Blood Glucose (65-95) mg/dL 01/27/21 01/27/21 01/27/21 Range/Units 02:45 05:29 05:29 RBC 3.58 L (3.65-5.03) M/mm3 Hgb 11.7 L (11.8-15.2) gm/dl Hct 34.9 L (35.5-45.6) % MCV 97 H (84-94) fl MCH 33 H (28-32) pg Seg Neuts % (Manual) 88.0 H (40.0-70.0) % Lymphocytes % (Manual) 7.0 L (13.4-35.0) % Lymphocytes # (Manual) 0.5 L (1.2-5.4) K/mm3 ABG pH 7.319 L (7.320-7.450) POC ABG pCO2 50.7 H (32.0-48.0) mmHg POC ABG pO2 63.0 L (83-108) mmHg ABG Sodium 145.2 H (136.0-145.0) mmol/L ABG Potassium 5.1 H (3.40-4.50) mmol/L ABG Chloride 114.0 H (98-107) mmol/L ABG Glucose 178 H (65-95) mg/dL Potassium (3.6-5.0) mmol/L Chloride (98-107) mmol/L BUN (9-20) mg/dL Creatinine (0.8-1.3) mg/dL Glucose (75-100) mg/dL POC Glucose (70-105) mg/dL Calcium (8.4-10.2) mg/dL Magnesium 4.00 H (1.7-2.3) mg/dL Triglycerides (2-149) mg/dL Arterial Blood Glucose 178 H (65-95) mg/dL 01/27/21 01/27/21 01/27/21 Range/Units 05:29 05:29 05:31 RBC (3.65-5.03) M/mm3 Hgb (11.8-15.2) gm/dl Hct (35.5-45.6) % MCV (84-94) fl MCH (28-32) pg Seg Neuts % (Manual) (40.0-70.0) % Lymphocytes % (Manual) (13.4-35.0) % Lymphocytes # (Manual) (1.2-5.4) K/mm3 ABG pH (7.320-7.450) POC ABG pCO2 (32.0-48.0) mmHg POC ABG pO2 (83-108) mmHg ABG Sodium (136.0-145.0) mmol/L ABG Potassium (3.40-4.50) mmol/L ABG Chloride (98-107) mmol/L ABG Glucose (65-95) mg/dL Potassium 5.2 H (3.6-5.0) mmol/L Chloride 109.6 H (98-107) mmol/L BUN 67 H (9-20) mg/dL Creatinine 2.8 H (0.8-1.3) mg/dL Glucose 195 H (75-100) mg/dL POC Glucose 176 H (70-105) mg/dL Calcium 7.9 L (8.4-10.2) mg/dL Magnesium (1.7-2.3) mg/dL Triglycerides 160 H (2-149) mg/dL Arterial Blood Glucose (65-95) mg/dL
--- NOTE | 2021-01-27 14:09 | Progress Note ---
<BRENDA MORALES - Last Filed: 01/27/21 14:10> Assessment and Plan Assessment and plan: -Infectious disease, CCM, nephrology consulted -Continue contact/droplet precautions -Steroid therapy, remdesivir -Antibiotic therapy -SSI -Tube feedings -Trend BMP -Resume home antihypertensive regimen when appropriate -Full dose Lovenox DVT/GI prophylaxis: SCDs to bilateral lower extremities while in bed, heparin subcu, PPI Dispo: ICU The high probability of a clinically significant, sudden or life threatening deterioration of the [multi] system(s) required my full and direct attention, intervention and personal management. The aggregate critical care time was [32] minutes. This time is in addition to time spent performing reported procedures but includes the following: [x] Data Review and interpretation [x] Patient assessment and monitoring of vital signs [x] Documentation [x] Medication orders and management History Interval history: This is a 60-year-old male with diabetes mellitus, hypertension, hyperlipidemia, chronic renal insufficiency presents to the emergency department on 01/23 with shortness of breath, fevers chills, loss of smell and taste and body aches for the past 3 days via EMS. Per EMS patient's oxygen saturation on room air was 50% and after being placed on nonrebreather it increased 75%. Upon arrival to the emergency department patient was being bagged by EMS. In the emergency room patient was intubated due to severe hypoxia, increased work of breathing and lethargy. Patient was sedated on propofol and fentanyl. Patient presented with fever, tachycardia, tachypnea and acute hypoxic respiratory failure with PNA on CXR meeting Sepsis criteria. Lab work in the emergency department revealed hyponatremia, hypokalemia, hypochloremia, elevated CR/BUN and CXR showed bilateral pneumonia. Patient was admitted to the hospital service as a COVID-19 PUI with consults to infectious disease, nephrology and critical care medicine. Sepsis COVID-19 PUI Bilateral pneumonia Acute hypoxic respiratory failure Acute kidney injury Hyponatremia Hypokalemia Hypochloremia Diabetes mellitus Hypertension Hyperlipidemia Hyperlipidemia Chronic renal insufficiency Elevated D-dimer Lactic Acidosis 01/24/2021: Patient is intubated and sedated, patient is positive for COVID-19 infection. ID was consulted and put on dexamethasone and remdesivir. Patient has DEISI and nephrology is following. Creatinine stable, patient is urinating. Discussed with nephrology and he is okay with remdesivir. Pulmonary critical care is following for his vent setting. PEEP of 8 and FiO2 of 85%. Patient was alert and off sedatives. 01/25/2021; patient is intubated and on mechanical ventilation. Continue with treatment of Covid. Nephrology and ID is following. Pulmonary is following for vent management 01/26: Remains on mechanical ventilation and [facility] increased his PEEP. [facility] has ordered Precedex for sedation. Possibly need to prone this p.m. No acute events reported overnight. This morning his D-dimer is greater than 10,000 and we have started him on Lovenox 120 mg daily. Nutrition has been consulted for initiation of tube feedings. Patient remains sedated on propofol 40 and fentanyl for the time my examination this morning. 01/27: Continue Lovenox, remdesivir and empiric antibiotics. Patient had a T-max of 101 overnight. The time of examination patient is on CMV 500/18/14/0.61. Kidney function slightly worsened. Sedated on fentanyl ground-level fall and Precedex. Nephrology has increased IV fluids to 100 ml/hr. Continue to trend BMP and CBC. Sedation vacation attempt by RN this AM. Hospitalist Physical - Constitutional Vitals: Temp Pulse Resp BP Pulse Ox 99.8 F H 68 18 118/71 100 01/27/21 12:00 01/27/21 12:00 01/27/21 04:00 01/27/21 11:30 01/27/21 11:30 General appearance: Present: no acute distress - EENT Eyes: Present: PERRL - Neck Neck: Present: normal ROM - Respiratory Respiratory effort: normal Respiratory: bilateral: diminished - Cardiovascular Rhythm: regular Heart Sounds: Present: S1 & S2. Absent: systolic murmur, diastolic murmur - Extremities Extremities: no ischemia, pulses intact, pulses symmetrical, No edema, normal temperature, normal color Peripheral Pulses: within normal limits - Abdominal General gastrointestinal: soft, non-tender, non-distended, normal bowel sounds - Integumentary Integumentary: Present: warm, dry - Psychiatric Psychiatric: other (sedated) - Neurologic Neurologic: other (sedated) - Allied Health Allied health notes reviewed: nursing, RT HEART Score - HEART Score Risk factors: 1-2 risk factors Troponin: < normal limit - Critical Actions Critical Actions: 0-3 pts:0.9-1.7%risk of adverse cardiac event.Candidate for discharge Results - Labs CBC & Chem 7: 01/27/21 05:29 01/27/21 05:29 Labs: Laboratory Last Values WBC 6.6 K/mm3 (4.5-11.0) 01/27/21 05:29 RBC 3.58 M/mm3 (3.65-5.03) L 01/27/21 05:29 Hgb 11.7 gm/dl (11.8-15.2) L 01/27/21 05:29 Hct 34.9 % (35.5-45.6) L 01/27/21 05:29 MCV 97 fl (84-94) H 01/27/21 05:29 MCH 33 pg (28-32) H 01/27/21 05:29 MCHC 34 % (32-34) 01/27/21 05:29 RDW 15.2 % (13.2-15.2) 01/27/21 05:29 Plt Count 385 K/mm3 (140-440) 01/27/21 05:29 Lymph % (Auto) 6.6 % (13.4-35.0) L 01/22/21 22:57 [place] % (Auto) 5.5 % (0.0-7.3) 01/22/21 22:57 Eos % (Auto) 0.0 % (0.0-4.3) 01/22/21 22:57 Baso % (Auto) 0.3 % (0.0-1.8) 01/22/21 22:57 Lymph # (Auto) 0.5 K/mm3 (1.2-5.4) L 01/22/21 22:57 [place] # (Auto) 0.4 K/mm3 (0.0-0.8) 01/22/21 22:57 Eos # (Auto) 0.0 K/mm3 (0.0-0.4) 01/22/21 22:57 Baso # (Auto) 0.0 K/mm3 (0.0-0.1) 01/22/21 22:57 Add Manual Diff Complete 01/27/21 05:29 Total Counted 100 01/27/21 05:29 Seg Neutrophils % Crosstie Inspector 01/27/21 05:29 Seg Neuts % (Manual) 88.0 % (40.0-70.0) H 01/27/21 05:29 Band Neutrophils % 1.0 % 01/27/21 05:29 Lymphocytes % (Manual) 7.0 % (13.4-35.0) L 01/27/21 05:29 Reactive Lymphs % (Man) 1.0 % 01/27/21 05:29 Monocytes % (Manual) 3.0 % (0.0-7.3) 01/27/21 05:29 Eosinophils % (Manual) 2.0 % (0.0-4.3) 01/24/21 05:05 Nucleated RBC % Not Reportable 01/27/21 05:29 Seg Neutrophils # 6.8 K/mm3 (1.8-7.7) 01/22/21 22:57 Seg Neutrophils # Man 5.8 K/mm3 (1.8-7.7) 01/27/21 05:29 Band Neutrophils # 0.1 K/mm3 01/27/21 05:29 Lymphocytes # (Manual) 0.5 K/mm3 (1.2-5.4) L 01/27/21 05:29 Abs React Lymphs (Man) 0.1 K/mm3 01/27/21 05:29 Monocytes # (Manual) 0.2 K/mm3 (0.0-0.8) 01/27/21 05:29 Eosinophils # (Manual) 0.0 K/mm3 (0.0-0.4) 01/27/21 05:29 Basophils # (Manual) 0.0 K/mm3 (0.0-0.1) 01/27/21 05:29 Metamyelocytes # 0.0 K/mm3 01/27/21 05:29 Myelocytes # 0.0 K/mm3 01/27/21 05:29 Promyelocytes # 0.0 K/mm3 01/27/21 05:29 Blast Cells # 0.0 K/mm3 01/27/21 05:29 WBC Morphology Not Reportable 01/27/21 05:29 Hypersegmented Neuts Not Reportable 01/27/21 05:29 Hyposegmented Neuts Not Reportable 01/27/21 05:29 Hypogranular Neuts Not Reportable 01/27/21 05:29 Smudge Cells Not Reportable 01/27/21 05:29 Toxic Granulation Not Reportable 01/27/21 05:29 Toxic Vacuolation Not Reportable 01/27/21 05:29 Dohle Bodies Not Reportable 01/27/21 05:29 Pelger-Huet Anomaly Not Reportable 01/27/21 05:29 Fátima Rods Not Reportable 01/27/21 05:29 Platelet Estimate Consistent w auto 01/27/21 05:29 Clumped Platelets Not Reportable 01/27/21 05:29 Plt Clumps, EDTA Not Reportable 01/27/21 05:29 Large Platelets Not Reportable 01/27/21 05:29 Giant Platelets Not Reportable 01/27/21 05:29 Platelet Satelliting Not Reportable 01/27/21 05:29 Plt Morphology Comment Not Reportable 01/27/21 05:29 RBC Morphology Normal 01/27/21 05:29 Dimorphic RBCs Not Reportable 01/27/21 05:29 Polychromasia Not Reportable 01/27/21 05:29 Hypochromasia Not Reportable 01/27/21 05:29 Poikilocytosis Not Reportable 01/27/21 05:29 Anisocytosis Not Reportable 01/27/21 05:29 Microcytosis Not Reportable 01/27/21 05:29 Macrocytosis Not Reportable 01/27/21 05:29 Spherocytes Not Reportable 01/27/21 05:29 Pappenheimer Bodies Not Reportable 01/27/21 05:29 Sickle Cells Not Reportable 01/27/21 05:29 Target Cells Not Reportable 01/27/21 05:29 Tear Drop Cells Not Reportable 01/27/21 05:29 Ovalocytes Not Reportable 01/27/21 05:29 Helmet Cells Not Reportable 01/27/21 05:29 [place] Bodies Not Reportable 01/27/21 05:29 [place] Rings Not Reportable 01/27/21 05:29 [place] Cells Not Reportable 01/27/21 05:29 Bite Cells Not Reportable 01/27/21 05:29 Crenated Cell Not Reportable 01/27/21 05:29 Elliptocytes Not Reportable 01/27/21 05:29 Acanthocytes (Spur) Not Reportable 01/27/21 05:29 Rouleaux Not Reportable 01/27/21 05:29 Hemoglobin C Crystals Not Reportable 01/27/21 05:29 Schistocytes Not Reportable 01/27/21 05:29 Malaria parasites Not Reportable 01/27/21 05:29 Aquiles Bodies Not Reportable 01/27/21 05:29 Hem Pathologist Commnt No 01/27/21 05:29 D-Dimer > [id number] ng/mlDDU (0-234) H 01/26/21 05:47 ABG pH 7.319 (7.320-7.450) L 01/27/21 02:45 POC ABG pCO2 50.7 mmHg (32.0-48.0) H 01/27/21 02:45 ABG pCO2 39.5 mm Hg 01/23/21 Unknown POC ABG pO2 63.0 mmHg (83-108) L 01/27/21 02:45 ABG pO2 165.4 mm Hg (80.0-90.0) H 01/23/21 Unknown POC ABG HCO3 25.5 01/27/21 02:45 ABG HCO3 22.4 mmol/L (20.0-26.0) 01/23/21 Unknown ABG O2 Saturation 89.9 (0-100) 01/27/21 02:45 ABG O2 Content 19.6 (0.0-44) 01/23/21 Unknown POC ABG Base Excess -1.1 01/27/21 02:45 ABG Base Excess -2.5 mmol/L (-2.0-3.0) L 01/23/21 Unknown ABG Hemoglobin 12.2 (12.0-17.5) 01/27/21 02:45 ABG Oxyhemoglobin 91.9 (94-98) L 01/26/21 03:43 ABG Carboxyhemoglobin 1.7 % (0.0-5.0) 01/23/21 Unknown ABG Methemoglobin 0.3 (0.0-1.5) 01/26/21 03:43 ABG Sodium 145.2 mmol/L (136.0-145.0) H 01/27/21 02:45 ABG Potassium 5.1 mmol/L (3.40-4.50) H 01/27/21 02:45 ABG Chloride 114.0 mmol/L (98-107) H 01/27/21 02:45 ABG Glucose 178 mg/dL (65-95) H 01/27/21 02:45 Oxyhemoglobin 96.8 % (95.0-99.0) 01/23/21 Unknown Carboxyhemoglobin 0.8 (0.5-1.5) 01/26/21 03:43 FiO2 100 % 01/23/21 Unknown FiO2 % 60 01/27/21 02:45 Sodium 142 mmol/L (137-145) 01/27/21 05:29 Potassium 5.2 mmol/L (3.6-5.0) H 01/27/21 05:29 Chloride 109.6 mmol/L (98-107) H 01/27/21 05:29 Carbon Dioxide 25 mmol/L (22-30) 01/27/21 05:29 Anion Gap 13 mmol/L 01/27/21 05:29 BUN 67 mg/dL (9-20) H 01/27/21 05:29 Creatinine 2.8 mg/dL (0.8-1.3) H 01/27/21 05:29 Estimated GFR 28 ml/min 01/27/21 05:29 BUN/Creatinine Ratio 24 % 01/27/21 05:29 Glucose 195 mg/dL (75-100) H 01/27/21 05:29 POC Glucose 189 mg/dL (70-105) H 01/27/21 11:27 Lactic Acid 1.90 mmol/L (0.7-2.0) 01/24/21 14:38 Calcium 7.9 mg/dL (8.4-10.2) L 01/27/21 05:29 Magnesium 4.00 mg/dL (1.7-2.3) H 01/27/21 05:29 Ferritin 1178.0 ng/mL (30.0-300.0) H 01/26/21 05:47 Total Bilirubin 1.50 mg/dL (0.1-1.2) H 01/26/21 05:47 AST 37 units/L (5-40) 01/26/21 05:47 ALT 29 units/L (7-56) 01/26/21 05:47 Alkaline Phosphatase 70 units/L (35-129) 01/26/21 05:47 Lactate Dehydrogenase 588 units/L (91-180) H 01/26/21 05:47 C-Reactive Protein 40.10 mg/dL (0.00-1.30) H 01/26/21 05:47 Total Protein 7.2 g/dL (6.3-8.2) 01/26/21 05:47 Albumin 2.2 g/dL (3.9-5) L 01/26/21 05:47 Albumin/Globulin Ratio 0.4 % 01/26/21 05:47 Triglycerides 160 mg/dL (2-149) H 01/27/21 05:29 Procalcitonin 0.92 ng/mL (<0.15) 01/22/21 22:57 Arterial Blood Glucose 178 mg/dL (65-95) H 01/27/21 02:45 Arterial Blood Ionized Calcium 4.6 mg/dL (4.6-5.3) 01/27/21 02:45 Urine Color Nehal (Yellow) 01/22/21 22:39 Urine Turbidity Cloudy (Clear) 01/22/21 22:39 Urine pH 5.0 (5.0-7.0) 01/22/21 22:39 Ur Specific [place] 1.017 (1.003-1.030) 01/22/21 22:39 Urine Protein 100 mg/dl mg/dL (Negative) 01/22/21 22:39 Urine Glucose (UA) Neg mg/dL (Negative) 01/22/21 22:39 Urine Ketones Neg mg/dL (Negative) 01/22/21 22:39 Urine Blood Mod (Negative) 01/22/21 22:39 Urine Nitrite Neg (Negative) 01/22/21 22:39 Urine Bilirubin Neg (Negative) 01/22/21 22:39 Urine Urobilinogen 2.0 mg/dL (<2.0) 01/22/21 22:39 Ur Leukocyte Esterase Mod (Negative) 01/22/21 22:39 Urine WBC (Auto) < 1.0 /HPF (0.0-6.0) 01/22/21 22:39 Urine RBC (Auto) < 1.0 /HPF (0.0-6.0) 01/22/21 22:39 U Epithel Cells (Auto) < 1.0 /HPF (0-13.0) 01/22/21 22:39 Urine Creatinine 301.2 mg/dL (0.1-20.0) H 01/22/21 22:39 Urine Sodium 28 mmol/L 01/22/21 22:39 Coronavirus (PCR) Positive (Negative) A 01/23/21 08:41 Microbiology: Microbiology 01/22/21 22:57 Peripheral/Venous Blood Culture - Preliminary NO GROWTH AFTER 4 DAYS 01/22/21 22:52 Peripheral/Venous Blood Culture - Preliminary NO GROWTH AFTER 4 DAYS Black/IV: Voiding Method Indwelling Catheter Active Medications - Current Medications Current Medications: Generic Name Dose Route Start Last Admin Trade Name Freq PRN Reason Stop Dose Admin Acetaminophen 650 mg 01/23/21 02:25 Acetaminophen 650 Mg Rect Supp NC Q4H PRN Pain, Mild (1-3) Acetaminophen 650 mg 01/24/21 12:58 01/27/21 04:25 Acetaminophen 325 Mg/10.15 Ml Oral Liqd Unit Dose FEEDTUBE 650 mg Q6H PRN Administration Pain, Mild (1-3) Lipase/Protease/Amylase 1 each 01/26/21 14:25 Lipase 10,500/Protease 25,000/Amylase 43,750 (Units) Dr Cap FEEDTUBE PRN PRN For Clogged Feeding Tube Dexamethasone 6 mg 01/23/21 22:00 01/27/21 09:14 Dexamethasone 4 Mg/Ml Vial IV 02/01/21 22:01 6 mg BID CECE Administration Dextrose 50 ml 01/27/21 07:24 Dextrose 50% In Water (25gm) 50 Ml Syringe IV Q30MIN PRN Hypoglycemia Protocol Enoxaparin Sodium 120 mg 01/26/21 11:00 01/27/21 09:38 Enoxaparin 120 Mg/0.8 Ml Inj SUB-Q 120 mg Q24HR CECE Administration Famotidine 20 mg 01/24/21 10:00 01/27/21 09:14 Famotidine 20 Mg/2 Ml Inj IV 20 mg DAILY CECE Administration Fentanyl 50 mcg 01/22/21 22:39 Fentanyl 100 Mcg/2 Ml Inj IV Q10MIN PRN ANALGESIA Hydrophilic Ointment 1 applic 01/22/21 22:39 Lip Therapy Vaseline TP Q2HR PRN Dry Lips Fentanyl Citrate 2,000 mcg in 100 mls @ 6.124 mls/hr 01/22/21 23:00 01/27/21 13:55 Fentanyl Drip Premix IV 4 mcg/kg/hr TITR CECE 24.494 mls/hr Administration Protocol 1 MCG/KG/HR Propofol 1,000 mg in 100 mls @ 3.674 mls/hr 01/22/21 23:45 01/27/21 13:55 Diprivan 10 Mg/Ml IV 30 mcg/kg/min TITR CECE 22.045 mls/hr Administration Protocol 5 MCG/KG/MIN Azithromycin 500 mg in 250 mls @ 250 mls/hr 01/23/21 22:00 01/26/21 21:57 Zithromax/Ns IV 01/27/21 22:59 250 mls/hr Q24H CECE Administration Sodium Chloride 1,000 mls @ 100 mls/hr 01/23/21 08:00 01/27/21 12:10 Nacl 0.9% 1000 Ml IV 100 mls/hr DIRECT CECE Administration Ceftriaxone Sodium 2 gm in 100 mls @ 200 mls/hr 01/23/21 22:00 01/26/21 21:58 Rocephin/Ns 2 Gm/100 Ml IV 01/27/21 22:29 200 mls/hr Q24H CECE Administration Protocol REMDESIVIR 100 mg/ Sodium 250 mls @ 500 mls/hr 01/24/21 21:00 01/26/21 21:41 Chloride IV 01/28/21 21:29 500 mls/hr Q24HR@2100 CECE Administration Dexmedetomidine HCl 400 mcg/ 104 mls @ 6.368 mls/hr 01/26/21 11:00 01/27/21 04:12 Sodium Chloride IV 0.4 mcg/kg/hr TITRATE CECE 12.737 mls/hr Administration Protocol 0.2 MCG/KG/HR Insulin Human Regular 0 units 01/27/21 12:00 01/27/21 12:08 Insulin Regular, Human 100 Units/1 Ml SUB-Q 3 units Q6H CECE Administration Protocol Multi-Ingred Cream/Lotion/Oil/Oint 1 applic 01/22/21 22:39 Mineral Oil/Petrolatum, White Ophth Oint 3.5 Gm OU Q4HR PRN Dry Eye(s) Ondansetron HCl 4 mg 01/23/21 02:17 Ondansetron 4 Mg/2 Ml Inj IV Q8H PRN Nausea And Vomiting Simple Syrup 15 ml 01/26/21 14:25 Simple Syrup 15 Ml FEEDTUBE PRN PRN Hypoglycemia Simple Syrup 30 ml 01/26/21 14:25 Simple Syrup 15 Ml FEEDTUBE PRN PRN Hypoglycemia Sodium Bicarbonate 325 mg 01/26/21 14:25 Sodium Bicarbonate 325 Mg Tab FEEDTUBE PRN PRN For Clogged Feeding Tube Sodium Chloride 50 ml 01/23/21 21:00 01/26/21 21:48 Sodium Chloride 0.9% 50 Ml Ivpb IV 01/28/21 21:01 50 ml Q24HR@2100 CECE Administration Nutrition/Malnutrition Assess - Dietary Evaluation Nutrition/Malnutrition Findings: Nutrition Notes Start: 01/26/21 13:59 Freq: Status: Active Protocol: Document 01/26/21 14:00 CW (Rec: 01/26/21 14:24 CW [id number]) Nutrition Notes Need for Assessment generated from: MD Order Initial or Follow up Assessment Current Diagnosis Acute Kidney Injury,Diabetes, Hypertension,Respiratory Failure,Hyperlipidemia Other Pertinent Diagnosis SOB, Covid PUI, pneu, hidradentitis Current Diet TF Labs/Tests BUN 56 Cr 2.2 BG 188 Pertinent Medications Decadron Propofol at 29.393 ml/hr (776 kcal) Height 5 ft 8 in Weight 122.47 kg [place] Body Weight (kg) 70.00 BMI 41.0 Weight Status Morbidly Obese Subjective/Other Information MD verbal consult for TF. Pt on mechanical vent. Recommend intitiate TF. Pt may be proned for 12 hr. Run at 20 ml/hr when proned. Pt receiving 776 kcal from propofol. 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 Yes Is Patient Ambulatory and/or Out of Bed No REE-([facility]-confined to bed) 2403.516 Kcal/Kg value to use for calculation 16 Approximate Energy Requirements Using 1960 kcal/Kg Calculation Used for Recommendations Kcal/kg Additional Notes protein needs: 175g (< 2.5 g/ kgIBW) fluid needs: 1 ml/kcal Nutrition Intervention Change Diet Order: TF Nutrition Support: If running continuous feed x 24 hrs without proning: Nepro at 40 ml/hr with a free water flush of 300 ml q4h If in prone position x 12/hr day: While in prone position: Nepro at 20 ml/hr with free water flush of 50 ml q4h. While in supine position: Nepro at 60 ml/hr with a free water flush of 300 ml q4h Kcal 1,728 Protein (gm) 78 Fluid (mL) 698 Goal #1 Initiate TF Goal #2 Meet kcal and protein needs as best as possible via TF Anticipated Discharge Needs: unable to determine at this time Follow-Up By: 01/28/21 Additional Comments F/U TF start, vent status, renal related labs <MONO SILVA - Last Filed: 01/28/21 07:20> Assessment and Plan Assessment and plan: I saw and evaluated the patient. I agree with the findings and the plan of care as documented in the Nurse Practitioner's~note, with the following corrections and additions. Hospitalist Physical - Constitutional Vitals: Temp Pulse Resp BP Pulse Ox 98.4 F 73 18 120/66 100 01/28/21 04:00 01/28/21 04:34 01/28/21 00:00 01/28/21 04:34 01/28/21 04:34 Results - Labs CBC & Chem 7: 01/27/21 05:29 01/27/21 05:29 Labs: Laboratory Last Values WBC 6.6 K/mm3 (4.5-11.0) 01/27/21 05:29 RBC 3.58 M/mm3 (3.65-5.03) L 01/27/21 05:29 Hgb 11.7 gm/dl (11.8-15.2) L 01/27/21 05:29 Hct 34.9 % (35.5-45.6) L 01/27/21 05:29 MCV 97 fl (84-94) H 01/27/21 05:29 MCH 33 pg (28-32) H 01/27/21 05:29 MCHC 34 % (32-34) 01/27/21 05:29 RDW 15.2 % (13.2-15.2) 01/27/21 05:29 Plt Count 385 K/mm3 (140-440) 01/27/21 05:29 Lymph % (Auto) 6.6 % (13.4-35.0) L 01/22/21 22:57 [place] % (Auto) 5.5 % (0.0-7.3) 01/22/21 22:57 Eos % (Auto) 0.0 % (0.0-4.3) 01/22/21 22:57 Baso % (Auto) 0.3 % (0.0-1.8) 01/22/21 22:57 Lymph # (Auto) 0.5 K/mm3 (1.2-5.4) L 01/22/21 22:57 [place] # (Auto) 0.4 K/mm3 (0.0-0.8) 01/22/21 22:57 Eos # (Auto) 0.0 K/mm3 (0.0-0.4) 01/22/21 22:57 Baso # (Auto) 0.0 K/mm3 (0.0-0.1) 01/22/21 22:57 Add Manual Diff Complete 01/27/21 05:29 Total Counted 100 01/27/21 05:29 Seg Neutrophils % Crosstie Inspector 01/27/21 05:29 Seg Neuts % (Manual) 88.0 % (40.0-70.0) H 01/27/21 05:29 Band Neutrophils % 1.0 % 01/27/21 05:29 Lymphocytes % (Manual) 7.0 % (13.4-35.0) L 01/27/21 05:29 Reactive Lymphs % (Man) 1.0 % 01/27/21 05:29 Monocytes % (Manual) 3.0 % (0.0-7.3) 01/27/21 05:29 Eosinophils % (Manual) 2.0 % (0.0-4.3) 01/24/21 05:05 Nucleated RBC % Not Reportable 01/27/21 05:29 Seg Neutrophils # 6.8 K/mm3 (1.8-7.7) 01/22/21 22:57 Seg Neutrophils # Man 5.8 K/mm3 (1.8-7.7) 01/27/21 05:29 Band Neutrophils # 0.1 K/mm3 01/27/21 05:29 Lymphocytes # (Manual) 0.5 K/mm3 (1.2-5.4) L 01/27/21 05:29 Abs React Lymphs (Man) 0.1 K/mm3 01/27/21 05:29 Monocytes # (Manual) 0.2 K/mm3 (0.0-0.8) 01/27/21 05:29 Eosinophils # (Manual) 0.0 K/mm3 (0.0-0.4) 01/27/21 05:29 Basophils # (Manual) 0.0 K/mm3 (0.0-0.1) 01/27/21 05:29 Metamyelocytes # 0.0 K/mm3 01/27/21 05:29 Myelocytes # 0.0 K/mm3 01/27/21 05:29 Promyelocytes # 0.0 K/mm3 01/27/21 05:29 Blast Cells # 0.0 K/mm3 01/27/21 05:29 WBC Morphology Not Reportable 01/27/21 05:29 Hypersegmented Neuts Not Reportable 01/27/21 05:29 Hyposegmented Neuts Not Reportable 01/27/21 05:29 Hypogranular Neuts Not Reportable 01/27/21 05:29 Smudge Cells Not Reportable 01/27/21 05:29 Toxic Granulation Not Reportable 01/27/21 05:29 Toxic Vacuolation Not Reportable 01/27/21 05:29 Dohle Bodies Not Reportable 01/27/21 05:29 Pelger-Huet Anomaly Not Reportable 01/27/21 05:29 Fátima Rods Not Reportable 01/27/21 05:29 Platelet Estimate Consistent w auto 01/27/21 05:29 Clumped Platelets Not Reportable 01/27/21 05:29 Plt Clumps, EDTA Not Reportable 01/27/21 05:29 Large Platelets Not Reportable 01/27/21 05:29 Giant Platelets Not Reportable 01/27/21 05:29 Platelet Satelliting Not Reportable 01/27/21 05:29 Plt Morphology Comment Not Reportable 01/27/21 05:29 RBC Morphology Normal 01/27/21 05:29 Dimorphic RBCs Not Reportable 01/27/21 05:29 Polychromasia Not Reportable 01/27/21 05:29 Hypochromasia Not Reportable 01/27/21 05:29 Poikilocytosis Not Reportable 01/27/21 05:29 Anisocytosis Not Reportable 01/27/21 05:29 Microcytosis Not Reportable 01/27/21 05:29 Macrocytosis Not Reportable 01/27/21 05:29 Spherocytes Not Reportable 01/27/21 05:29 Pappenheimer Bodies Not Reportable 01/27/21 05:29 Sickle Cells Not Reportable 01/27/21 05:29 Target Cells Not Reportable 01/27/21 05:29 Tear Drop Cells Not Reportable 01/27/21 05:29 Ovalocytes Not Reportable 01/27/21 05:29 Helmet Cells Not Reportable 01/27/21 05:29 [place] Bodies Not Reportable 01/27/21 05:29 [place] Rings Not Reportable 01/27/21 05:29 [place] Cells Not Reportable 01/27/21 05:29 Bite Cells Not Reportable 01/27/21 05:29 Crenated Cell Not Reportable 01/27/21 05:29 Elliptocytes Not Reportable 01/27/21 05:29 Acanthocytes (Spur) Not Reportable 01/27/21 05:29 Rouleaux Not Reportable 01/27/21 05:29 Hemoglobin C Crystals Not Reportable 01/27/21 05:29 Schistocytes Not Reportable 01/27/21 05:29 Malaria parasites Not Reportable 01/27/21 05:29 [place] Bodies Not Reportable 01/27/21 05:29 Hem Pathologist Commnt No 01/27/21 05:29 D-Dimer > 79719 ng/mlDDU (0-234) H 01/26/21 05:47 ABG pH 7.352 (7.320-7.450) 01/28/21 03:58 POC ABG pCO2 45.5 mmHg (32.0-48.0) 01/28/21 03:58 ABG pCO2 39.5 mm Hg 01/23/21 Unknown POC ABG pO2 52.9 mmHg (83-108) L 01/28/21 03:58 ABG pO2 165.4 mm Hg (80.0-90.0) H 01/23/21 Unknown POC ABG HCO3 24.7 01/28/21 03:58 ABG HCO3 22.4 mmol/L (20.0-26.0) 01/23/21 Unknown ABG O2 Saturation 84.8 (0-100) 01/28/21 03:58 ABG O2 Content 19.6 (0.0-44) 01/23/21 Unknown POC ABG Base Excess -1.1 01/28/21 03:58 ABG Base Excess -2.5 mmol/L (-2.0-3.0) L 01/23/21 Unknown ABG Hemoglobin 12.3 (12.0-17.5) 01/28/21 03:58 ABG Oxyhemoglobin 84.1 (94-98) L 01/28/21 03:58 ABG Carboxyhemoglobin 1.7 % (0.0-5.0) 01/23/21 Unknown ABG Methemoglobin 0.3 (0.0-1.5) 01/28/21 03:58 ABG Sodium 148.9 mmol/L (136.0-145.0) H 01/28/21 03:58 ABG Potassium 4.5 mmol/L (3.40-4.50) 01/28/21 03:58 ABG Chloride 117.0 mmol/L (98-107) H 01/28/21 03:58 ABG Glucose 194 mg/dL (65-95) H 01/28/21 03:58 Oxyhemoglobin 96.8 % (95.0-99.0) 01/23/21 Unknown Carboxyhemoglobin 0.5 (0.5-1.5) 01/28/21 03:58 FiO2 100 % 01/23/21 Unknown FiO2 % 60 01/28/21 03:58 Sodium 142 mmol/L (137-145) 01/27/21 05:29 Potassium 5.2 mmol/L (3.6-5.0) H 01/27/21 05:29 Chloride 109.6 mmol/L (98-107) H 01/27/21 05:29 Carbon Dioxide 25 mmol/L (22-30) 01/27/21 05:29 Anion Gap 13 mmol/L 01/27/21 05:29 BUN 67 mg/dL (9-20) H 01/27/21 05:29 Creatinine 2.8 mg/dL (0.8-1.3) H 01/27/21 05:29 Estimated GFR 28 ml/min 01/27/21 05:29 BUN/Creatinine Ratio 24 % 01/27/21 05:29 Glucose 195 mg/dL (75-100) H 01/27/21 05:29 POC Glucose 159 mg/dL (70-105) H 01/28/21 05:00 Lactic Acid 1.90 mmol/L (0.7-2.0) 01/24/21 14:38 Calcium 7.9 mg/dL (8.4-10.2) L 01/27/21 05:29 Magnesium 4.00 mg/dL (1.7-2.3) H 01/27/21 05:29 Ferritin 1178.0 ng/mL (30.0-300.0) H 01/26/21 05:47 Total Bilirubin 1.50 mg/dL (0.1-1.2) H 01/26/21 05:47 AST 37 units/L (5-40) 01/26/21 05:47 ALT 29 units/L (7-56) 01/26/21 05:47 Alkaline Phosphatase 70 units/L (35-129) 01/26/21 05:47 Lactate Dehydrogenase 588 units/L (91-180) H 01/26/21 05:47 C-Reactive Protein 40.10 mg/dL (0.00-1.30) H 01/26/21 05:47 Total Protein 7.2 g/dL (6.3-8.2) 01/26/21 05:47 Albumin 2.2 g/dL (3.9-5) L 01/26/21 05:47 Albumin/Globulin Ratio 0.4 % 01/26/21 05:47 Triglycerides 160 mg/dL (2-149) H 01/27/21 05:29 Procalcitonin 0.92 ng/mL (<0.15) 01/22/21 22:57 Arterial Blood Glucose 194 mg/dL (65-95) H 01/28/21 03:58 Arterial Blood Ionized Calcium 4.6 mg/dL (4.6-5.3) 01/28/21 03:58 Urine Color Nehal (Yellow) 01/22/21 22:39 Urine Turbidity Cloudy (Clear) 01/22/21 22:39 Urine pH 5.0 (5.0-7.0) 01/22/21 22:39 Ur Specific [place] 1.017 (1.003-1.030) 01/22/21 22:39 Urine Protein 100 mg/dl mg/dL (Negative) 01/22/21 22:39 Urine Glucose (UA) Neg mg/dL (Negative) 01/22/21 22:39 Urine Ketones Neg mg/dL (Negative) 01/22/21 22:39 Urine Blood Mod (Negative) 01/22/21 22:39 Urine Nitrite Neg (Negative) 01/22/21 22:39 Urine Bilirubin Neg (Negative) 01/22/21 22:39 Urine Urobilinogen 2.0 mg/dL (<2.0) 01/22/21 22:39 Ur Leukocyte Esterase Mod (Negative) 01/22/21 22:39 Urine WBC (Auto) < 1.0 /HPF (0.0-6.0) 01/22/21 22:39 Urine RBC (Auto) < 1.0 /HPF (0.0-6.0) 01/22/21 22:39 U Epithel Cells (Auto) < 1.0 /HPF (0-13.0) 01/22/21 22:39 Urine Creatinine 301.2 mg/dL (0.1-20.0) H 01/22/21 22:39 Urine Sodium 28 mmol/L 01/22/21 22:39 Coronavirus (PCR) Positive (Negative) A 01/23/21 08:41 Black/IV: Voiding Method Indwelling Catheter Active Medications - Current Medications Current Medications: Generic Name Dose Route Start Last Admin Trade Name Freq PRN Reason Stop Dose Admin Acetaminophen 650 mg 01/23/21 02:25 Acetaminophen 650 Mg Rect Supp NC Q4H PRN Pain, Mild (1-3) Acetaminophen 650 mg 01/24/21 12:58 01/27/21 04:25 Acetaminophen 325 Mg/10.15 Ml Oral Liqd Unit Dose FEEDTUBE 650 mg Q6H PRN Administration Pain, Mild (1-3) Lipase/Protease/Amylase 1 each 01/26/21 14:25 Lipase 10,500/Protease 25,000/Amylase 43,750 (Units) Dr Claudio FEEDTUBE PRN PRN For Clogged Feeding Tube Dexamethasone 6 mg 01/23/21 22:00 01/27/21 21:59 Dexamethasone 4 Mg/Ml Vial IV 02/01/21 22:01 6 mg BID CECE Administration Dextrose 50 ml 01/27/21 07:24 Dextrose 50% In Water (25gm) 50 Ml Syringe IV Q30MIN PRN Hypoglycemia Protocol Enoxaparin Sodium 120 mg 01/26/21 11:00 01/27/21 09:38 Enoxaparin 120 Mg/0.8 Ml Inj SUB-Q 120 mg Q24HR CECE Administration Famotidine 20 mg 01/24/21 10:00 01/27/21 09:14 Famotidine 20 Mg/2 Ml Inj IV 20 mg DAILY CECE Administration Fentanyl 50 mcg 01/22/21 22:39 Fentanyl 100 Mcg/2 Ml Inj IV Q10MIN PRN ANALGESIA Hydrophilic Ointment 1 applic 01/22/21 22:39 Lip Therapy Vaseline TP Q2HR PRN Dry Lips Fentanyl Citrate 2,000 mcg in 100 mls @ 6.124 mls/hr 01/22/21 23:00 01/28/21 06:29 Fentanyl Drip Premix IV 4 mcg/kg/hr TITR CECE 24.494 mls/hr Administration Protocol 1 MCG/KG/HR Propofol 1,000 mg in 100 mls @ 3.674 mls/hr 01/22/21 23:45 01/28/21 05:00 Diprivan 10 Mg/Ml IV 40 mcg/kg/min TITR CECE 29.393 mls/hr Administration Protocol 5 MCG/KG/MIN Sodium Chloride 1,000 mls @ 100 mls/hr 01/23/21 08:00 01/27/21 12:10 Nacl 0.9% 1000 Ml IV 100 mls/hr DIRECT CECE Administration REMDESIVIR 100 mg/ Sodium 250 mls @ 500 mls/hr 01/24/21 21:00 01/27/21 21:13 Chloride IV 01/28/21 21:29 500 mls/hr Q24HR@2100 CECE Administration Dexmedetomidine HCl 400 mcg/ 104 mls @ 6.368 mls/hr 01/26/21 11:00 01/27/21 21:57 Sodium Chloride IV 0.4 mcg/kg/hr TITRATE CECE 12.737 mls/hr Administration Protocol 0.2 MCG/KG/HR Insulin Human Regular 0 units 01/27/21 12:00 01/27/21 18:19 Insulin Regular, Human 100 Units/1 Ml SUB-Q 3 units Q6H CECE Administration Protocol Multi-Ingred Cream/Lotion/Oil/Oint 1 applic 01/22/21 22:39 Mineral Oil/Petrolatum, White Ophth Oint 3.5 Gm OU Q4HR PRN Dry Eye(s) Ondansetron HCl 4 mg 01/23/21 02:17 Ondansetron 4 Mg/2 Ml Inj IV Q8H PRN Nausea And Vomiting Simple Syrup 15 ml 01/26/21 14:25 Simple Syrup 15 Ml FEEDTUBE PRN PRN Hypoglycemia Simple Syrup 30 ml 01/26/21 14:25 Simple Syrup 15 Ml FEEDTUBE PRN PRN Hypoglycemia Sodium Bicarbonate 325 mg 01/26/21 14:25 Sodium Bicarbonate 325 Mg Tab FEEDTUBE PRN PRN For Clogged Feeding Tube Sodium Chloride 50 ml 01/23/21 21:00 01/27/21 21:57 Sodium Chloride 0.9% 50 Ml Ivpb IV 01/28/21 21:01 50 ml Q24HR@2100 CECE Administration Nutrition/Malnutrition Assess - Dietary Evaluation Nutrition/Malnutrition Findings: Nutrition Notes Start: 01/26/21 13:59 Freq: Status: Active Protocol: Document 01/26/21 14:00 CW (Rec: 01/26/21 14:24 CW [id number]) Nutrition Notes Need for Assessment generated from: MD Order Initial or Follow up Assessment Current Diagnosis Acute Kidney Injury,Diabetes, Hypertension,Respiratory Failure,Hyperlipidemia Other Pertinent Diagnosis SOB, Covid PUI, pneu, hidradentitis Current Diet TF Labs/Tests BUN 56 Cr 2.2 BG 188 Pertinent Medications Decadron Propofol at 29.393 ml/hr (776 kcal) Height 5 ft 8 in Weight 122.47 kg [place] Body Weight (kg) 70.00 BMI 41.0 Weight Status Morbidly Obese Subjective/Other Information verbal consult for TF. Pt on mechanical vent. Recommend intitiate TF. Pt may be proned for 12 hr. Run at 20 ml/hr when proned. Pt receiving 776 kcal from propofol. 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 Yes Is Patient Ambulatory and/or Out of Bed No [facility] 2403.516 Kcal/Kg value to use for calculation 16 Approximate Energy Requirements Using 1960 kcal/Kg Calculation Used for Recommendations Kcal/kg Additional Notes protein needs: 175g (< 2.5 g/ kgIBW) fluid needs: 1 ml/kcal Nutrition Intervention Change Diet Order: TF Nutrition Support: If running continuous feed x 24 hrs without proning: Nepro at 40 ml/hr with a free water flush of 300 ml q4h If in prone position x 12/hr day: While in prone position: Nepro at 20 ml/hr with free water flush of 50 ml q4h. While in supine position: Nepro at 60 ml/hr with a free water flush of 300 ml q4h Kcal 1,728 Protein (gm) 78 Fluid (mL) 698 Goal #1 Initiate TF Goal #2 Meet kcal and protein needs as best as possible via TF Anticipated Discharge Needs: unable to determine at this time Follow-Up By: 01/28/21 Additional Comments F/U TF start, vent status, renal related labs
[2021-01-27] MEDS: REMDESIVIR 100 MG in SODIUM CHLORIDE 0.9% 250ML 250 ML IV SCH (21:13)
[2021-01-27] MEDS: AZITHROMYCIN/NS 500 MG/250 ML 500 MG/250 ML BAG IV SCH (21:18)
[2021-01-27] MEDS: SODIUM CHLORIDE 0.9% 50 ML IVPB IV SCH (21:57)
[2021-01-27] MEDS: cefTRIAXone/NS 2 GM/100 ML 2 GM/100 ML BAG IV SCH (21:57)
--- NOTE | 2021-01-28 06:12 | XRay Report ---
CHEST 1 VIEW INDICATION: follow up respiratory failure COMPARISON: One day prior. FINDINGS: Support devices: Unchanged. Heart: Stable. Lungs/Pleura: Considerable bilateral lung disease persists unchanged. No new disease. IMPRESSION: 1. No significant change. Signer Name: Lavon Padilla MD Signed: 01/28/2021 6:08 AM Workstation Name: [id number]
[2021-01-28] MEDS: fentaNYL DRIP Premix 2,000 MCG/100 ML BAG IV SCH ×5 (06:29→23:24)
[2021-01-28] MEDS: INSULIN REGULAR, HUMAN 100 UNITS/1 ML SUB-Q SCH ×4 (07:00→18:19)
[2021-01-28] MEDS: FAMOTIDINE 20 MG/2 ML INJ IV SCH (09:48)
[2021-01-28] MEDS: dexAMETHasone 4 MG/ML VIAL IV SCH ×2 (09:48→21:37)
[2021-01-28] MEDS: ENOXAPARIN 120 MG/0.8 ML INJ SUB-Q SCH (09:49)
[2021-01-28 10:35] LABS: Hematocrit 34.8 % (35.5-45.6); Hemoglobin 11.6 gm/dl (11.8-15.2); Mean Corpuscular HGB Conc 33 % (32-34); Mean Corpuscular Volume 97 fl (84-94); Platelet Count 401 K/mm3 (140-440); Red Blood Count 3.59 M/mm3 (3.65-5.03); Red Cell Distribution Width 14.8 % (13.2-15.2)
[2021-01-28 10:43] LABS: Calcium 8.1 mg/dL (8.4-10.2)
[2021-01-28 10:48] LABS: C-Reactive Protein 17.1 mg/dL (0.00-1.30)
[2021-01-28] MEDS: SODIUM CHLORIDE 0.9% 1000 ML 1,000 ML IV SCH ×2 (12:05→20:52)
[2021-01-28 12:20] LABS: Total Cells Counted 100
[2021-01-28 12:22] LABS: Platelet Estimate Consistent w Auto; RBC Morphology Normal
--- NOTE | 2021-01-28 12:26 | Progress Note ---
Assessment and Plan Cultures: Blood culture no growth today SARS CoV2 PCR positive 01/22/2021 respiratory culture: Usual respiratory dillon Assessment: 60 year old male with history of morbid obesity admitted on 01/22/2021 secondary to 3-day history of worsening shortness of breath associated with fever, chills, loss of smell and taste: #Severe sepsis: Present on admission with low-grade fever, tachycardia, hypoxia, hypotension, elevated lactate, DEISI. likely due to bilateral pneumonia. Urinalysis negative. Procalcitonin elevated in the setting of DEISI. #Critical COVID-19 pneumonia: Patient intubated. Chest x-ray with bilateral airspace disease. Inflammatory markers elevated. D-dimer 1173. CRP 30. #Acute respiratory failure: on vent. #Transaminitis: Likely secondary to COVID-19. #DEISI: Likely secondary to COVID-19. Recommendations: -Continue steroids per pulmonary -Continue remdesivir, limited data but reports suggest no significant issues with short courses in patients with renal disease -already on the vent for >24 hrs, not a candidate for tocilizumab -Monitor inflammatory markers -Completed abx -Anticoagulation per protocol -guarded prognosis Melida Byrne MD, FACP [facility] O: [phone] F: [phone] Subjective Date of service: 01/28/21 Principal diagnosis: DEISI Interval history: No fever. Remains on the vent. Objective - Exam Narrative Exam: Physical Exam (reviewed in chart to minimize risk of transmission) Constitutional: deferred Head, Ears, Nose: deferred Eyes: deferred Neck: deferred Oral: deferred Cardiovascular: deferred Respiratory: deferred GI: deferred Musculoskeletal: deferred Skin: deferred Hem/Lymphatic: deferred Psych: deferred Neurological: deferred - Constitutional Vitals: Vital Signs Temp Pulse Resp BP Pulse Ox 98.4 F 71 18 124/73 92 01/28/21 08:00 01/28/21 11:14 01/28/21 04:00 01/28/21 11:14 01/28/21 11:14 Temperature -Last 24 Hours Temperature 98.4 F Temperature 98.4 F Temperature 97.6 F Temperature 97.8 F Temperature 98.8 F - Labs CBC & Chem 7: 01/28/21 06:00 01/28/21 06:00 Labs: Abnormal lab results 01/27/21 01/27/21 01/27/21 Range/Units 11:27 18:08 23:30 RBC (3.65-5.03) M/mm3 Hgb (11.8-15.2) gm/dl Hct (35.5-45.6) % MCV (84-94) fl Seg Neuts % (Manual) (40.0-70.0) % Lymphocytes % (Manual) (13.4-35.0) % Lymphocytes # (Manual) (1.2-5.4) K/mm3 D-Dimer (0-234) ng/mlDDU POC ABG pO2 (83-108) mmHg ABG Oxyhemoglobin (94-98) ABG Sodium (136.0-145.0) mmol/L ABG Chloride (98-107) mmol/L ABG Glucose (65-95) mg/dL Chloride (98-107) mmol/L BUN (9-20) mg/dL Creatinine (0.8-1.3) mg/dL Glucose (75-100) mg/dL POC Glucose 189 H 212 H 175 H (70-105) mg/dL Calcium (8.4-10.2) mg/dL Magnesium (1.7-2.3) mg/dL Ferritin (30.0-300.0) ng/mL Lactate Dehydrogenase (91-180) units/L C-Reactive Protein (0.00-1.30) mg/dL Arterial Blood Glucose (65-95) mg/dL 01/28/21 01/28/21 01/28/21 Range/Units 03:58 04:00 04:00 RBC (3.65-5.03) M/mm3 Hgb (11.8-15.2) gm/dl Hct (35.5-45.6) % MCV (84-94) fl Seg Neuts % (Manual) (40.0-70.0) % Lymphocytes % (Manual) (13.4-35.0) % Lymphocytes # (Manual) (1.2-5.4) K/mm3 D-Dimer > 00209 H (0-234) ng/mlDDU POC ABG pO2 52.9 L (83-108) mmHg ABG Oxyhemoglobin 84.1 L (94-98) ABG Sodium 148.9 H (136.0-145.0) mmol/L ABG Chloride 117.0 H (98-107) mmol/L ABG Glucose 194 H (65-95) mg/dL Chloride (98-107) mmol/L BUN (9-20) mg/dL Creatinine (0.8-1.3) mg/dL Glucose (75-100) mg/dL POC Glucose (70-105) mg/dL Calcium (8.4-10.2) mg/dL Magnesium (1.7-2.3) mg/dL Ferritin (30.0-300.0) ng/mL Lactate Dehydrogenase 679 H (91-180) units/L C-Reactive Protein 17.10 H (0.00-1.30) mg/dL Arterial Blood Glucose 194 H (65-95) mg/dL 01/28/21 01/28/21 01/28/21 Range/Units 04:00 05:00 06:00 RBC 3.59 L (3.65-5.03) M/mm3 Hgb 11.6 L (11.8-15.2) gm/dl Hct 34.8 L (35.5-45.6) % MCV 97 H (84-94) fl Seg Neuts % (Manual) 96.0 H (40.0-70.0) % Lymphocytes % (Manual) 3.0 L (13.4-35.0) % Lymphocytes # (Manual) 0.2 L (1.2-5.4) K/mm3 D-Dimer (0-234) ng/mlDDU POC ABG pO2 (83-108) mmHg ABG Oxyhemoglobin (94-98) ABG Sodium (136.0-145.0) mmol/L ABG Chloride (98-107) mmol/L ABG Glucose (65-95) mg/dL Chloride (98-107) mmol/L BUN (9-20) mg/dL Creatinine (0.8-1.3) mg/dL Glucose (75-100) mg/dL POC Glucose 159 H (70-105) mg/dL Calcium (8.4-10.2) mg/dL Magnesium (1.7-2.3) mg/dL Ferritin 798.0 H (30.0-300.0) ng/mL Lactate Dehydrogenase (91-180) units/L C-Reactive Protein (0.00-1.30) mg/dL Arterial Blood Glucose (65-95) mg/dL 01/28/21 01/28/21 01/28/21 Range/Units 06:00 06:00 08:12 RBC (3.65-5.03) M/mm3 Hgb (11.8-15.2) gm/dl Hct (35.5-45.6) % MCV (84-94) fl Seg Neuts % (Manual) (40.0-70.0) % Lymphocytes % (Manual) (13.4-35.0) % Lymphocytes # (Manual) (1.2-5.4) K/mm3 D-Dimer (0-234) ng/mlDDU POC ABG pO2 (83-108) mmHg ABG Oxyhemoglobin (94-98) ABG Sodium (136.0-145.0) mmol/L ABG Chloride (98-107) mmol/L ABG Glucose (65-95) mg/dL Chloride 111.9 H (98-107) mmol/L BUN 59 H (9-20) mg/dL Creatinine 2.2 H (0.8-1.3) mg/dL Glucose 189 H (75-100) mg/dL POC Glucose 181 H (70-105) mg/dL Calcium 8.1 L (8.4-10.2) mg/dL Magnesium 3.20 H (1.7-2.3) mg/dL Ferritin (30.0-300.0) ng/mL Lactate Dehydrogenase (91-180) units/L C-Reactive Protein (0.00-1.30) mg/dL Arterial Blood Glucose (65-95) mg/dL
--- NOTE | 2021-01-28 14:42 | Progress Note ---
Assessment and Plan 60 y/o male with ARDS secondary most likely to COVID 19 pneumonia. 01/28/21: Increased PEEP to 16. Will paralyze patient today and increase sedation. Ordering picc line for possible vasopressor therapy needs. Continue BID steroids. Renal function is slightly better today with fluids but could be making oxygenation worse. Not able to diurese. Still making urine. Continue Remdesivir. Watch for fever curve. If not improvement in the next 24 hours with paralyzing, will prone tomorrow morning. 01/27/21: Continue PEEP at 14. No weaning until FiO2 is at or below 40-45%. Continue anticoagulation. Getting Remdesivir now. Continue BID steroids. Renal has increased the fluids. Monitor urine output and renal function. Overall prognosis is very very guarded, especially if renal status worsens. 01/26/21: Increase PEEP to 14. Will add Precedex therapy. If patient does not respond to increases in PEEP may need to prone. Will place patient on lovenox and will feed patient. Remdesivir coming. Continue BID steroids. Prognosis is guarded. 01/25/21: Hold on proning today. Continue BID steroids. ABG this AM was adequ ate. Pending abg tomorrow, may increase PEEP if not able to wean FiO2 any further. Per charting Remdesivir to arrive tomorrow. Guarded prognosis. 01/24/21: Continue BID steroids. No abg done this am but able to wean FiO2. Will obtain ABG in the am. Hold on proning for right now. Renal following, would like to diurese but they are given fluids for deisi. Agree with ID assessment and note. Guarded prognosis. 1. Increase steroids to BID given size 2. Check with ID to see if he is a candidate for remdesivir or any other experiemental therapy 3. Hold on proning for right now 4. Renal consulted and giving IVF's currently Guarded prognosis. CCT 31 minutes. Subjective Date of service: 01/28/21 Principal diagnosis: DEISI Interval history: Desats last night. had to be bumped up to 70%. ABG showed PaO2 in the 50's on 60%. Increased PEEP but had to go up to 80% too. Also having some dsynchrony from the vent, despite increased sedation. Objective Vital Signs - 12hr 01/28/21 01/28/21 01/28/21 04:00 04:34 08:00 Temperature 98.4 F 98.4 F Pulse Rate 72 73 73 Respiratory 18 Rate Blood Pressure 120/66 O2 Sat by Pulse 100 Oximetry 01/28/21 01/28/21 01/28/21 09:13 11:14 12:00 Temperature 100.2 F H Pulse Rate 69 71 75 Respiratory Rate Blood Pressure 118/66 124/73 O2 Sat by Pulse 93 92 Oximetry CBC and BMP: 01/28/21 06:00 01/28/21 06:00 ABG, PT/INR, D-dimer: ABG ABG pH 7.352 (7.320-7.450) 01/28/21 03:58 POC ABG pCO2 45.5 mmHg (32.0-48.0) 01/28/21 03:58 ABG pCO2 39.5 mm Hg 01/23/21 Unknown POC ABG pO2 52.9 mmHg (83-108) L 01/28/21 03:58 ABG pO2 165.4 mm Hg (80.0-90.0) H 01/23/21 Unknown POC ABG HCO3 24.7 01/28/21 03:58 ABG O2 Saturation 84.8 (0-100) 01/28/21 03:58 PT/INR, D-dimer D-Dimer > 58823 ng/mlDDU (0-234) H 01/28/21 04:00 Abnormal lab findings: Abnormal Labs 01/22/21 01/22/21 01/22/21 22:39 22:57 22:57 WBC RBC Hgb Hct MCV MCH MCHC Lymph % (Auto) 6.6 L Lymph # (Auto) 0.5 L Seg Neutrophils % 87.6 H Seg Neuts % (Manual) Lymphocytes % (Manual) Seg Neutrophils # Man Lymphocytes # (Manual) D-Dimer ABG pH POC ABG pCO2 POC ABG pO2 ABG pO2 ABG Base Excess ABG Oxyhemoglobin ABG Sodium ABG Potassium ABG Chloride ABG Glucose Carboxyhemoglobin Sodium 129 L Potassium 3.4 L Chloride 90.4 L Carbon Dioxide BUN 34 H Creatinine 1.5 H Glucose 146 H POC Glucose Lactic Acid Calcium 7.8 L Magnesium Ferritin Total Bilirubin AST 75 H ALT 57 H Lactate Dehydrogenase C-Reactive Protein Albumin 2.9 L Triglycerides Arterial Blood Glucose Arterial Blood Ionized Calcium Urine Creatinine 301.2 H Coronavirus (PCR) 03/25/21 03/25/21 03/25/21 22:57 22:57 22:57 WBC RBC Hgb Hct MCV MCH MCHC Lymph % (Auto) Lymph # (Auto) Seg Neutrophils % Seg Neuts % (Manual) Lymphocytes % (Manual) Seg Neutrophils # Man Lymphocytes # (Manual) D-Dimer 1173.89 H ABG pH POC ABG pCO2 POC ABG pO2 ABG pO2 ABG Base Excess ABG Oxyhemoglobin ABG Sodium ABG Potassium ABG Chloride ABG Glucose Carboxyhemoglobin Sodium Potassium Chloride Carbon Dioxide BUN Creatinine Glucose 149 H POC Glucose Lactic Acid 2.10 H* Calcium Magnesium Ferritin Total Bilirubin AST ALT Lactate Dehydrogenase 685 H C-Reactive Protein 30.40 H Albumin Triglycerides Arterial Blood Glucose Arterial Blood Ionized Calcium Urine Creatinine Coronavirus (PCR) 01/22/21 01/23/21 01/23/21 22:57 08:41 10:01 WBC RBC Hgb Hct MCV MCH MCHC Lymph % (Auto) Lymph # (Auto) Seg Neutrophils % Seg Neuts % (Manual) Lymphocytes % (Manual) Seg Neutrophils # Man Lymphocytes # (Manual) D-Dimer ABG pH POC ABG pCO2 POC ABG pO2 ABG pO2 ABG Base Excess ABG Oxyhemoglobin ABG Sodium ABG Potassium ABG Chloride ABG Glucose Carboxyhemoglobin Sodium 131 L Potassium Chloride 88.7 L Carbon Dioxide 18 L BUN 36 H Creatinine 1.6 H Glucose 147 H POC Glucose Lactic Acid Calcium 7.5 L Magnesium Ferritin 1207.0 H Total Bilirubin AST ALT Lactate Dehydrogenase C-Reactive Protein Albumin Triglycerides Arterial Blood Glucose Arterial Blood Ionized Calcium Urine Creatinine Coronavirus (PCR) Positive A 01/23/21 01/23/21 01/24/21 20:49 Unknown 00:10 WBC RBC Hgb Hct MCV MCH MCHC Lymph % (Auto) Lymph # (Auto) Seg Neutrophils % Seg Neuts % (Manual) Lymphocytes % (Manual) Seg Neutrophils # Man Lymphocytes # (Manual) D-Dimer ABG pH POC ABG pCO2 POC ABG pO2 ABG pO2 165.4 H ABG Base Excess -2.5 L ABG Oxyhemoglobin ABG Sodium ABG Potassium ABG Chloride ABG Glucose Carboxyhemoglobin Sodium 130 L Potassium Chloride 91.0 L Carbon Dioxide 20 L BUN 52 H Creatinine 3.8 H D Glucose 150 H POC Glucose 125 H Lactic Acid Calcium 8.0 L Magnesium Ferritin Total Bilirubin AST 42 H ALT Lactate Dehydrogenase C-Reactive Protein Albumin 2.4 L Triglycerides Arterial Blood Glucose Arterial Blood Ionized Calcium Urine Creatinine Coronavirus (PCR) 01/24/21 01/24/21 01/24/21 05:05 05:05 05:05 WBC 14.0 H RBC Hgb Hct MCV 95 H MCH 33 H MCHC Lymph % (Auto) Lymph # (Auto) Seg Neutrophils % Seg Neuts % (Manual) 91.0 H Lymphocytes % (Manual) 4.0 L Seg Neutrophils # Man 12.7 H Lymphocytes # (Manual) 0.6 L D-Dimer 6159.48 H ABG pH POC ABG pCO2 POC ABG pO2 ABG pO2 ABG Base Excess ABG Oxyhemoglobin ABG Sodium ABG Potassium ABG Chloride ABG Glucose Carboxyhemoglobin Sodium Potassium Chloride Carbon Dioxide BUN Creatinine Glucose POC Glucose Lactic Acid Calcium Magnesium Ferritin 1178.0 H Total Bilirubin AST ALT Lactate Dehydrogenase C-Reactive Protein Albumin Triglycerides Arterial Blood Glucose Arterial Blood Ionized Calcium Urine Creatinine Coronavirus (PCR) 01/24/21 01/24/21 01/24/21 05:05 05:05 05:05 WBC RBC Hgb Hct MCV MCH MCHC Lymph % (Auto) Lymph # (Auto) Seg Neutrophils % Seg Neuts % (Manual) Lymphocytes % (Manual) Seg Neutrophils # Man Lymphocytes # (Manual) D-Dimer ABG pH POC ABG pCO2 POC ABG pO2 ABG pO2 ABG Base Excess ABG Oxyhemoglobin ABG Sodium ABG Potassium ABG Chloride ABG Glucose Carboxyhemoglobin Sodium 132 L Potassium Chloride 93.1 L Carbon Dioxide 21 L BUN 57 H Creatinine 3.7 H Glucose 133 H POC Glucose Lactic Acid 2.20 H* Calcium 7.7 L Magnesium Ferritin Total Bilirubin AST ALT Lactate Dehydrogenase 658 H C-Reactive Protein 33.20 H Albumin 2.4 L Triglycerides Arterial Blood Glucose Arterial Blood Ionized Calcium Urine Creatinine Coronavirus (PCR) 01/24/21 01/24/21 01/25/21 05:34 17:35 04:15 WBC RBC Hgb Hct MCV MCH MCHC Lymph % (Auto) Lymph # (Auto) Seg Neutrophils % Seg Neuts % (Manual) Lymphocytes % (Manual) Seg Neutrophils # Man Lymphocytes # (Manual) D-Dimer ABG pH POC ABG pCO2 POC ABG pO2 63.2 L ABG pO2 ABG Base Excess ABG Oxyhemoglobin 89.6 L ABG Sodium ABG Potassium ABG Chloride ABG Glucose 165 H Carboxyhemoglobin 0.3 L Sodium Potassium Chloride Carbon Dioxide BUN Creatinine Glucose POC Glucose 136 H 137 H Lactic Acid Calcium Magnesium Ferritin Total Bilirubin AST ALT Lactate Dehydrogenase C-Reactive Protein Albumin Triglycerides Arterial Blood Glucose 165 H Arterial Blood Ionized Calcium 4.3 L Urine Creatinine Coronavirus (PCR) 01/25/21 01/25/21 01/25/21 05:40 05:40 05:59 WBC RBC Hgb Hct MCV 95 H MCH 33 H MCHC 35 H Lymph % (Auto) Lymph # (Auto) Seg Neutrophils % Seg Neuts % (Manual) 95.0 H Lymphocytes % (Manual) 3.0 L Seg Neutrophils # Man 7.8 H Lymphocytes # (Manual) 0.2 L D-Dimer ABG pH POC ABG pCO2 POC ABG pO2 ABG pO2 ABG Base Excess ABG Oxyhemoglobin ABG Sodium ABG Potassium ABG Chloride ABG Glucose Carboxyhemoglobin Sodium Potassium Chloride Carbon Dioxide BUN 67 H Creatinine 3.4 H Glucose 153 H POC Glucose 140 H Lactic Acid Calcium 7.5 L Magnesium Ferritin Total Bilirubin 1.40 H AST 62 H ALT Lactate Dehydrogenase C-Reactive Protein Albumin 2.6 L Triglycerides Arterial Blood Glucose Arterial Blood Ionized Calcium Urine Creatinine Coronavirus (PCR) 01/25/21 01/25/21 01/25/21 12:00 17:17 23:41 WBC RBC Hgb Hct MCV MCH MCHC Lymph % (Auto) Lymph # (Auto) Seg Neutrophils % Seg Neuts % (Manual) Lymphocytes % (Manual) Seg Neutrophils # Man Lymphocytes # (Manual) D-Dimer ABG pH POC ABG pCO2 POC ABG pO2 ABG pO2 ABG Base Excess ABG Oxyhemoglobin ABG Sodium ABG Potassium ABG Chloride ABG Glucose Carboxyhemoglobin Sodium Potassium Chloride Carbon Dioxide BUN Creatinine Glucose POC Glucose 143 H 149 H 132 H Lactic Acid Calcium Magnesium Ferritin Total Bilirubin AST ALT Lactate Dehydrogenase C-Reactive Protein Albumin Triglycerides Arterial Blood Glucose Arterial Blood Ionized Calcium Urine Creatinine Coronavirus (PCR) 01/26/21 01/26/21 01/26/21 03:43 05:46 05:47 WBC RBC Hgb Hct 35.3 L MCV 96 H MCH 33 H MCHC Lymph % (Auto) Lymph # (Auto) Seg Neutrophils % Seg Neuts % (Manual) 96.0 H Lymphocytes % (Manual) 2.0 L Seg Neutrophils # Man Lymphocytes # (Manual) 0.1 L D-Dimer ABG pH POC ABG pCO2 POC ABG pO2 70.0 L ABG pO2 ABG Base Excess ABG Oxyhemoglobin 91.9 L ABG Sodium ABG Potassium ABG Chloride 109.0 H ABG Glucose 165 H Carboxyhemoglobin Sodium Potassium Chloride Carbon Dioxide BUN Creatinine Glucose POC Glucose 161 H Lactic Acid Calcium Magnesium Ferritin Total Bilirubin AST ALT Lactate Dehydrogenase C-Reactive Protein Albumin Triglycerides Arterial Blood Glucose 165 H Arterial Blood Ionized Calcium 4.5 L Urine Creatinine Coronavirus (PCR) 01/26/21 01/26/21 01/26/21 05:47 05:47 05:47 WBC RBC Hgb Hct MCV MCH MCHC Lymph % (Auto) Lymph # (Auto) Seg Neutrophils % Seg Neuts % (Manual) Lymphocytes % (Manual) Seg Neutrophils # Man Lymphocytes # (Manual) D-Dimer > 29711 H ABG pH POC ABG pCO2 POC ABG pO2 ABG pO2 ABG Base Excess ABG Oxyhemoglobin ABG Sodium ABG Potassium ABG Chloride ABG Glucose Carboxyhemoglobin Sodium Potassium Chloride Carbon Dioxide BUN 57 H Creatinine 2.2 H Glucose 185 H POC Glucose Lactic Acid Calcium 8.1 L Magnesium Ferritin 1178.0 H Total Bilirubin AST ALT Lactate Dehydrogenase C-Reactive Protein Albumin Triglycerides Arterial Blood Glucose Arterial Blood Ionized Calcium Urine Creatinine Coronavirus (PCR) 01/26/21 01/26/21 01/26/21 05:47 05:47 11:34 WBC RBC Hgb Hct MCV MCH MCHC Lymph % (Auto) Lymph # (Auto) Seg Neutrophils % Seg Neuts % (Manual) Lymphocytes % (Manual) Seg Neutrophils # Man Lymphocytes # (Manual) D-Dimer ABG pH POC ABG pCO2 POC ABG pO2 ABG pO2 ABG Base Excess ABG Oxyhemoglobin ABG Sodium ABG Potassium ABG Chloride ABG Glucose Carboxyhemoglobin Sodium Potassium Chloride 107.1 H Carbon Dioxide BUN 56 H Creatinine 2.2 H Glucose 188 H POC Glucose 129 H Lactic Acid Calcium 8.0 L Magnesium Ferritin Total Bilirubin 1.50 H AST ALT Lactate Dehydrogenase 588 H C-Reactive Protein 40.10 H Albumin 2.2 L Triglycerides Arterial Blood Glucose Arterial Blood Ionized Calcium Urine Creatinine Coronavirus (PCR) 01/26/21 01/26/21 01/27/21 18:17 23:20 02:45 WBC RBC Hgb Hct MCV MCH MCHC Lymph % (Auto) Lymph # (Auto) Seg Neutrophils % Seg Neuts % (Manual) Lymphocytes % (Manual) Seg Neutrophils # Man Lymphocytes # (Manual) D-Dimer ABG pH 7.319 L POC ABG pCO2 50.7 H POC ABG pO2 63.0 L ABG pO2 ABG Base Excess ABG Oxyhemoglobin ABG Sodium 145.2 H ABG Potassium 5.1 H ABG Chloride 114.0 H ABG Glucose 178 H Carboxyhemoglobin Sodium Potassium Chloride Carbon Dioxide BUN Creatinine Glucose POC Glucose 205 H 155 H Lactic Acid Calcium Magnesium Ferritin Total Bilirubin AST ALT Lactate Dehydrogenase C-Reactive Protein Albumin Triglycerides Arterial Blood Glucose 178 H Arterial Blood Ionized Calcium Urine Creatinine Coronavirus (PCR) 01/27/21 01/27/21 01/27/21 05:29 05:29 05:29 WBC RBC 3.58 L Hgb 11.7 L Hct 34.9 L MCV 97 H MCH 33 H MCHC Lymph % (Auto) Lymph # (Auto) Seg Neutrophils % Seg Neuts % (Manual) 88.0 H Lymphocytes % (Manual) 7.0 L Seg Neutrophils # Man Lymphocytes # (Manual) 0.5 L D-Dimer ABG pH POC ABG pCO2 POC ABG pO2 ABG pO2 ABG Base Excess ABG Oxyhemoglobin ABG Sodium ABG Potassium ABG Chloride ABG Glucose Carboxyhemoglobin Sodium Potassium 5.2 H Chloride 109.6 H Carbon Dioxide BUN 67 H Creatinine 2.8 H Glucose 195 H POC Glucose Lactic Acid Calcium 7.9 L Magnesium 4.00 H Ferritin Total Bilirubin AST ALT Lactate Dehydrogenase C-Reactive Protein Albumin Triglycerides Arterial Blood Glucose Arterial Blood Ionized Calcium Urine Creatinine Coronavirus (PCR) 01/27/21 01/27/21 01/27/21 05:29 05:31 11:27 WBC RBC Hgb Hct MCV MCH MCHC Lymph % (Auto) Lymph # (Auto) Seg Neutrophils % Seg Neuts % (Manual) Lymphocytes % (Manual) Seg Neutrophils # Man Lymphocytes # (Manual) D-Dimer ABG pH POC ABG pCO2 POC ABG pO2 ABG pO2 ABG Base Excess ABG Oxyhemoglobin ABG Sodium ABG Potassium ABG Chloride ABG Glucose Carboxyhemoglobin Sodium Potassium Chloride Carbon Dioxide BUN Creatinine Glucose POC Glucose 176 H 189 H Lactic Acid Calcium Magnesium Ferritin Total Bilirubin AST ALT Lactate Dehydrogenase C-Reactive Protein Albumin Triglycerides 160 H Arterial Blood Glucose Arterial Blood Ionized Calcium Urine Creatinine Coronavirus (PCR) 01/27/21 01/27/21 01/28/21 18:08 23:30 03:58 WBC RBC Hgb Hct MCV MCH MCHC Lymph % (Auto) Lymph # (Auto) Seg Neutrophils % Seg Neuts % (Manual) Lymphocytes % (Manual) Seg Neutrophils # Man Lymphocytes # (Manual) D-Dimer ABG pH POC ABG pCO2 POC ABG pO2 52.9 L ABG pO2 ABG Base Excess ABG Oxyhemoglobin 84.1 L ABG Sodium 148.9 H ABG Potassium ABG Chloride 117.0 H ABG Glucose 194 H Carboxyhemoglobin Sodium Potassium Chloride Carbon Dioxide BUN Creatinine Glucose POC Glucose 212 H 175 H Lactic Acid Calcium Magnesium Ferritin Total Bilirubin AST ALT Lactate Dehydrogenase C-Reactive Protein Albumin Triglycerides Arterial Blood Glucose 194 H Arterial Blood Ionized Calcium Urine Creatinine Coronavirus (PCR) 01/28/21 01/28/21 01/28/21 04:00 04:00 04:00 WBC RBC Hgb Hct MCV MCH MCHC Lymph % (Auto) Lymph # (Auto) Seg Neutrophils % Seg Neuts % (Manual) Lymphocytes % (Manual) Seg Neutrophils # Man Lymphocytes # (Manual) D-Dimer > 59183 H ABG pH POC ABG pCO2 POC ABG pO2 ABG pO2 ABG Base Excess ABG Oxyhemoglobin ABG Sodium ABG Potassium ABG Chloride ABG Glucose Carboxyhemoglobin Sodium Potassium Chloride Carbon Dioxide BUN Creatinine Glucose POC Glucose Lactic Acid Calcium Magnesium Ferritin 798.0 H Total Bilirubin AST ALT Lactate Dehydrogenase 679 H C-Reactive Protein 17.10 H Albumin Triglycerides Arterial Blood Glucose Arterial Blood Ionized Calcium Urine Creatinine Coronavirus (PCR) 01/28/21 01/28/21 01/28/21 05:00 06:00 06:00 WBC RBC 3.59 L Hgb 11.6 L Hct 34.8 L MCV 97 H MCH MCHC Lymph % (Auto) Lymph # (Auto) Seg Neutrophils % Seg Neuts % (Manual) 96.0 H Lymphocytes % (Manual) 3.0 L Seg Neutrophils # Man Lymphocytes # (Manual) 0.2 L D-Dimer ABG pH POC ABG pCO2 POC ABG pO2 ABG pO2 ABG Base Excess ABG Oxyhemoglobin ABG Sodium ABG Potassium ABG Chloride ABG Glucose Carboxyhemoglobin Sodium Potassium Chloride 111.9 H Carbon Dioxide BUN 59 H Creatinine 2.2 H Glucose 189 H POC Glucose 159 H Lactic Acid Calcium 8.1 L Magnesium Ferritin Total Bilirubin AST ALT Lactate Dehydrogenase C-Reactive Protein Albumin Triglycerides Arterial Blood Glucose Arterial Blood Ionized Calcium Urine Creatinine Coronavirus (PCR) 01/28/21 01/28/21 01/28/21 06:00 08:12 12:03 WBC RBC Hgb Hct MCV MCH MCHC Lymph % (Auto) Lymph # (Auto) Seg Neutrophils % Seg Neuts % (Manual) Lymphocytes % (Manual) Seg Neutrophils # Man Lymphocytes # (Manual) D-Dimer ABG pH POC ABG pCO2 POC ABG pO2 ABG pO2 ABG Base Excess ABG Oxyhemoglobin ABG Sodium ABG Potassium ABG Chloride ABG Glucose Carboxyhemoglobin Sodium Potassium Chloride Carbon Dioxide BUN Creatinine Glucose POC Glucose 181 H 164 H Lactic Acid Calcium Magnesium 3.20 H Ferritin Total Bilirubin AST ALT Lactate Dehydrogenase C-Reactive Protein Albumin Triglycerides Arterial Blood Glucose Arterial Blood Ionized Calcium Urine Creatinine Coronavirus (PCR)
[2021-01-28] MEDS ORDERED: SODIUM BICARBONATE 325 MG TAB FEEDTUBE PRN (15:13)
[2021-01-28] MEDS ORDERED: LIPASE 10,500/PROTEASE 25,000/AMYLASE 43,750 (UNITS) DR CAP FEEDTUBE PRN (15:13)
[2021-01-28] MEDS ORDERED: SIMPLE SYRUP 15 ML FEEDTUBE PRN ×2 (15:13)
[2021-01-28] MEDS: CISATRACURIUM IV SCH ×2 (16:00→20:51)
[2021-01-28] MEDS: SODIUM CHLORIDE 0.9% IV SCH ×2 (16:00→20:51)
--- NOTE | 2021-01-28 16:00 | Progress Note ---
<BRENDA MORALES - Last Filed: 01/28/21 15:56> Assessment and Plan Assessment and plan: -Infectious disease, CCM, nephrology consulted -Continue contact/droplet precautions -Steroid therapy, remdesivir -S/p antibiotic therapy -SSI -Tube feeding -Trend BMP -Resume home antihypertensive regimen when appropriate -Full dose Lovenox -Paralytic initiation -PICC line DVT/GI prophylaxis: SCDs to bilateral lower extremities while in bed, heparin subcu, PPI Dispo: ICU The high probability of a clinically significant, sudden or life threatening deterioration of the [multi] system(s) required my full and direct attention, intervention and personal management. The aggregate critical care time was [32] minutes. This time is in addition to time spent performing reported procedures but includes the following: [x] Data Review and interpretation [x] Patient assessment and monitoring of vital signs [x] Documentation [x] Medication orders and management History Interval history: This is a 60-year-old male with diabetes mellitus, hypertension, hyperlipidemia, chronic renal insufficiency presents to the emergency department on 01/23 with shortness of breath, fevers chills, loss of smell and taste and body aches for the past 3 days via EMS. Per EMS patient's oxygen saturation on room air was 50% and after being placed on nonrebreather it increased 75%. Upon arrival to the emergency department patient was being bagged by EMS. In the emergency room patient was intubated due to severe hypoxia, increased work of breathing and lethargy. Patient was sedated on propofol and fentanyl. Patient presented with fever, tachycardia, tachypnea and acute hypoxic respiratory failure with PNA on CXR meeting Sepsis criteria. Lab work in the emergency department revealed hypo natremia, hypokalemia, hypochloremia, elevated CR/BUN and CXR showed bilateral pneumonia. Patient was admitted to the hospital service as a COVID-19 PUI with consults to infectious disease, nephrology and critical care medicine. Sepsis COVID-19 pneumonia Bilateral pneumonia Acute hypoxic respiratory failure Acute kidney injury Hyperchloremia Diabetes mellitus Hypertension Hyperlipidemia Hyperlipidemia Chronic renal insufficiency Elevated D-dimer 01/24/2021: Patient is intubated and sedated, patient is positive for COVID-19 infection. ID was consulted and put on dexamethasone and remdesivir. Patient has DEISI and nephrology is following. Creatinine stable, patient is urinating. Discussed with nephrology and he is okay with remdesivir. Pulmonary critical care is following for his vent setting. PEEP of 8 and FiO2 of 85%. Patient was alert and off sedatives. 01/25/2021; patient is intubated and on mechanical ventilation. Continue with treatment of Covid. Nephrology and ID is following. Pulmonary is following for vent management 01/26: Remains on mechanical ventilation and [facility] increased his PEEP. [facility] has ordered Precedex for sedation. Possibly need to prone this p.m. No acute events reported overnight. This morning his D-dimer is greater than 10,000 and we have started him on Lovenox 120 mg daily. Nutrition has been consulted for initiation of tube feedings. Patient remains sedated on propofol 40 and fentanyl for the time my examination this morning. 01/27: Continue Lovenox, remdesivir and empiric antibiotics. Patient had a T-max of 101 overnight. The time of examination patient is on CMV 500/18/14/0.61. Kidney function slightly worsened. Sedated on fentanyl ground-level fall and Precedex. Nephrology has increased IV fluids to 100 ml/hr. Continue to trend BMP and CBC. Sedation vacation attempt by RN this AM. 01/28: Patient completed antibiotics today [facility] will paralyze patient and increase sedation. PICC line ordered for possible vasopressor therapy need. Patient's D-dimer remains greater than 10,000 and he still has hyperchloremia. Patient's kidney function has improved today. May need to prone the patient if no improvement in oxygenation is noted in the next 24 hours. The time of my examination patient is sedated with propofol, fentanyl and Precedex and is on assist control 500/18/16/0.80 hypoxic on ABG on 60% FiO2. Hospitalist Physical - Constitutional Vitals: Temp Pulse Resp BP Pulse Ox 100.2 F H 93 H 18 137/73 92 01/28/21 12:00 01/28/21 15:38 01/28/21 04:00 01/28/21 15:38 01/28/21 15:38 General appearance: Present: no acute distress - EENT Eyes: Present: PERRL ENT: poor dentition - Neck Neck: Present: normal ROM - Respiratory Respiratory effort: normal Respiratory: bilateral: diminished, wheezing - Cardiovascular Rhythm: regular Heart Sounds: Present: S1 & S2. Absent: systolic murmur, diastolic murmur - Extremities Extremities: no ischemia, pulses intact, pulses symmetrical, normal temperature, normal color Peripheral Pulses: within normal limits - Abdominal General gastrointestinal: soft, non-tender, non-distended, normal bowel sounds - Integumentary Integumentary: Present: warm, dry - Psychiatric Psychiatric: other (Sedated) - Neurologic Neurologic: other (Sedated) HEART Score - HEART Score Risk factors: 1-2 risk factors Troponin: < normal limit - Critical Actions Critical Actions: 0-3 pts:0.9-1.7%risk of adverse cardiac event.Candidate for discharge Results - Labs CBC & Chem 7: 01/28/21 06:00 01/28/21 06:00 Labs: Laboratory Last Values WBC 7.8 K/mm3 (4.5-11.0) 01/28/21 06:00 RBC 3.59 M/mm3 (3.65-5.03) L 01/28/21 06:00 Hgb 11.6 gm/dl (11.8-15.2) L 01/28/21 06:00 Hct 34.8 % (35.5-45.6) L 01/28/21 06:00 MCV 97 fl (84-94) H 01/28/21 06:00 MCH 32 pg (28-32) 01/28/21 06:00 MCHC 33 % (32-34) 01/28/21 06:00 RDW 14.8 % (13.2-15.2) 01/28/21 06:00 Plt Count 401 K/mm3 (140-440) 01/28/21 06:00 Lymph % (Auto) 6.6 % (13.4-35.0) L 01/22/21 22:57 [place] % (Auto) 5.5 % (0.0-7.3) 01/22/21 22:57 Eos % (Auto) 0.0 % (0.0-4.3) 01/22/21 22:57 Baso % (Auto) 0.3 % (0.0-1.8) 01/22/21 22:57 Lymph # (Auto) 0.5 K/mm3 (1.2-5.4) L 01/22/21 22:57 [place] # (Auto) 0.4 K/mm3 (0.0-0.8) 01/22/21 22:57 Eos # (Auto) 0.0 K/mm3 (0.0-0.4) 01/22/21 22:57 Baso # (Auto) 0.0 K/mm3 (0.0-0.1) 01/22/21 22:57 Add Manual Diff Complete 01/28/21 06:00 Total Counted 100 01/28/21 06:00 Seg Neutrophils % Orthotics Assistant 01/28/21 06:00 Seg Neuts % (Manual) 96.0 % (40.0-70.0) H 01/28/21 06:00 Band Neutrophils % 1.0 % 01/27/21 05:29 Lymphocytes % (Manual) 3.0 % (13.4-35.0) L 01/28/21 06:00 Reactive Lymphs % (Man) 1.0 % 01/27/21 05:29 Monocytes % (Manual) 1.0 % (0.0-7.3) 01/28/21 06:00 Eosinophils % (Manual) 2.0 % (0.0-4.3) 01/24/21 05:05 Nucleated RBC % Not Reportable 01/28/21 06:00 Seg Neutrophils # 6.8 K/mm3 (1.8-7.7) 01/22/21 22:57 Seg Neutrophils # Man 7.5 K/mm3 (1.8-7.7) 01/28/21 06:00 Band Neutrophils # 0.0 K/mm3 01/28/21 06:00 Lymphocytes # (Manual) 0.2 K/mm3 (1.2-5.4) L 01/28/21 06:00 Abs React Lymphs (Man) 0.0 K/mm3 01/28/21 06:00 Monocytes # (Manual) 0.1 K/mm3 (0.0-0.8) 01/28/21 06:00 Eosinophils # (Manual) 0.0 K/mm3 (0.0-0.4) 01/28/21 06:00 Basophils # (Manual) 0.0 K/mm3 (0.0-0.1) 01/28/21 06:00 Metamyelocytes # 0.0 K/mm3 01/28/21 06:00 Myelocytes # 0.0 K/mm3 01/28/21 06:00 Promyelocytes # 0.0 K/mm3 01/28/21 06:00 Blast Cells # 0.0 K/mm3 01/28/21 06:00 WBC Morphology Not Reportable 01/28/21 06:00 Hypersegmented Neuts Not Reportable 01/28/21 06:00 Hyposegmented Neuts Not Reportable 01/28/21 06:00 Hypogranular Neuts Not Reportable 01/28/21 06:00 Smudge Cells Not Reportable 01/28/21 06:00 Toxic Granulation Not Reportable 01/28/21 06:00 Toxic Vacuolation Not Reportable 01/28/21 06:00 Dohle Bodies Not Reportable 01/28/21 06:00 Pelger-Huet Anomaly Not Reportable 01/28/21 06:00 Fátima Rods Not Reportable 01/28/21 06:00 Platelet Estimate Consistent w auto 01/28/21 06:00 Clumped Platelets Not Reportable 01/28/21 06:00 Plt Clumps, EDTA Not Reportable 01/28/21 06:00 Large Platelets Not Reportable 01/28/21 06:00 Giant Platelets Not Reportable 01/28/21 06:00 Platelet Satelliting Not Reportable 01/28/21 06:00 Plt Morphology Comment Not Reportable 01/28/21 06:00 RBC Morphology Normal 01/28/21 06:00 Dimorphic RBCs Not Reportable 01/28/21 06:00 Polychromasia Not Reportable 01/28/21 06:00 Hypochromasia Not Reportable 01/28/21 06:00 Poikilocytosis Not Reportable 01/28/21 06:00 Anisocytosis Not Reportable 01/28/21 06:00 Microcytosis Not Reportable 01/28/21 06:00 Macrocytosis Not Reportable 01/28/21 06:00 Spherocytes Not Reportable 01/28/21 06:00 Pappenheimer Bodies Not Reportable 01/28/21 06:00 Sickle Cells Not Reportable 01/28/21 06:00 Target Cells Not Reportable 01/28/21 06:00 Tear Drop Cells Not Reportable 01/28/21 06:00 Ovalocytes Not Reportable 01/28/21 06:00 Helmet Cells Not Reportable 01/28/21 06:00 [place] Bodies Not Reportable 01/28/21 06:00 [place] Rings Not Reportable 01/28/21 06:00 [place] Cells Not Reportable 01/28/21 06:00 Bite Cells Not Reportable 01/28/21 06:00 Crenated Cell Not Reportable 01/28/21 06:00 Elliptocytes Not Reportable 01/28/21 06:00 Acanthocytes (Spur) Not Reportable 01/28/21 06:00 Rouleaux Not Reportable 01/28/21 06:00 Hemoglobin C Crystals Not Reportable 01/28/21 06:00 Schistocytes Not Reportable 01/28/21 06:00 Malaria parasites Not Reportable 01/28/21 06:00 Aquiles Bodies Not Reportable 01/28/21 06:00 Hem Pathologist Commnt No 01/28/21 06:00 D-Dimer > 77678 ng/mlDDU (0-234) H 01/28/21 04:00 ABG pH 7.352 (7.320-7.450) 01/28/21 03:58 POC ABG pCO2 45.5 mmHg (32.0-48.0) 01/28/21 03:58 ABG pCO2 39.5 mm Hg 01/23/21 Unknown POC ABG pO2 52.9 mmHg (83-108) L 01/28/21 03:58 ABG pO2 165.4 mm Hg (80.0-90.0) H 01/23/21 Unknown POC ABG HCO3 24.7 01/28/21 03:58 ABG HCO3 22.4 mmol/L (20.0-26.0) 01/23/21 Unknown ABG O2 Saturation 84.8 (0-100) 01/28/21 03:58 ABG O2 Content 19.6 (0.0-44) 01/23/21 Unknown POC ABG Base Excess -1.1 01/28/21 03:58 ABG Base Excess -2.5 mmol/L (-2.0-3.0) L 01/23/21 Unknown ABG Hemoglobin 12.3 (12.0-17.5) 01/28/21 03:58 ABG Oxyhemoglobin 84.1 (94-98) L 01/28/21 03:58 ABG Carboxyhemoglobin 1.7 % (0.0-5.0) 01/23/21 Unknown ABG Methemoglobin 0.3 (0.0-1.5) 01/28/21 03:58 ABG Sodium 148.9 mmol/L (136.0-145.0) H 01/28/21 03:58 ABG Potassium 4.5 mmol/L (3.40-4.50) 01/28/21 03:58 ABG Chloride 117.0 mmol/L (98-107) H 01/28/21 03:58 ABG Glucose 194 mg/dL (65-95) H 01/28/21 03:58 Oxyhemoglobin 96.8 % (95.0-99.0) 01/23/21 Unknown Carboxyhemoglobin 0.5 (0.5-1.5) 01/28/21 03:58 FiO2 100 % 01/23/21 Unknown FiO2 % 60 01/28/21 03:58 Sodium 145 mmol/L (137-145) 01/28/21 06:00 Potassium 4.5 mmol/L (3.6-5.0) 01/28/21 06:00 Chloride 111.9 mmol/L (98-107) H 01/28/21 06:00 Carbon Dioxide 25 mmol/L (22-30) 01/28/21 06:00 Anion Gap 13 mmol/L 01/28/21 06:00 BUN 59 mg/dL (9-20) H 01/28/21 06:00 Creatinine 2.2 mg/dL (0.8-1.3) H 01/28/21 06:00 Estimated GFR 37 ml/min 01/28/21 06:00 BUN/Creatinine Ratio 27 % 01/28/21 06:00 Glucose 189 mg/dL (75-100) H 01/28/21 06:00 POC Glucose 164 mg/dL (70-105) H 01/28/21 12:03 Lactic Acid 1.90 mmol/L (0.7-2.0) 01/24/21 14:38 Calcium 8.1 mg/dL (8.4-10.2) L 01/28/21 06:00 Magnesium 3.20 mg/dL (1.7-2.3) H 01/28/21 06:00 Ferritin 798.0 ng/mL (30.0-300.0) H 01/28/21 04:00 Total Bilirubin 1.50 mg/dL (0.1-1.2) H 01/26/21 05:47 AST 37 units/L (5-40) 01/26/21 05:47 ALT 29 units/L (7-56) 01/26/21 05:47 Alkaline Phosphatase 70 units/L (35-129) 01/26/21 05:47 Lactate Dehydrogenase 679 units/L (91-180) H 01/28/21 04:00 C-Reactive Protein 17.10 mg/dL (0.00-1.30) H 01/28/21 04:00 Total Protein 7.2 g/dL (6.3-8.2) 01/26/21 05:47 Albumin 2.2 g/dL (3.9-5) L 01/26/21 05:47 Albumin/Globulin Ratio 0.4 % 01/26/21 05:47 Triglycerides 160 mg/dL (2-149) H 01/27/21 05:29 Procalcitonin 0.92 ng/mL (<0.15) 01/22/21 22:57 Arterial Blood Glucose 194 mg/dL (65-95) H 01/28/21 03:58 Arterial Blood Ionized Calcium 4.6 mg/dL (4.6-5.3) 01/28/21 03:58 Urine Color Nehal (Yellow) 01/22/21 22:39 Urine Turbidity Cloudy (Clear) 01/22/21 22:39 Urine pH 5.0 (5.0-7.0) 01/22/21 22:39 Ur Specific [place] 1.017 (1.003-1.030) 01/22/21 22:39 Urine Protein 100 mg/dl mg/dL (Negative) 01/22/21 22:39 Urine Glucose (UA) Neg mg/dL (Negative) 01/22/21 22:39 Urine Ketones Neg mg/dL (Negative) 01/22/21 22:39 Urine Blood Mod (Negative) 01/22/21 22:39 Urine Nitrite Neg (Negative) 01/22/21 22:39 Urine Bilirubin Neg (Negative) 01/22/21 22:39 Urine Urobilinogen 2.0 mg/dL (<2.0) 01/22/21 22:39 Ur Leukocyte Esterase Mod (Negative) 01/22/21 22:39 Urine WBC (Auto) < 1.0 /HPF (0.0-6.0) 01/22/21 22:39 Urine RBC (Auto) < 1.0 /HPF (0.0-6.0) 01/22/21 22:39 U Epithel Cells (Auto) < 1.0 /HPF (0-13.0) 01/22/21 22:39 Urine Creatinine 301.2 mg/dL (0.1-20.0) H 01/22/21 22:39 Urine Sodium 28 mmol/L 01/22/21 22:39 Coronavirus (PCR) Positive (Negative) A 01/23/21 08:41 Black/IV: Voiding Method Indwelling Catheter Active Medications - Current Medications Current Medications: Generic Name Dose Route Start Last Admin Trade Name Freq PRN Reason Stop Dose Admin Acetaminophen 650 mg 01/23/21 02:25 Acetaminophen 650 Mg Rect Supp VA Q4H PRN Pain, Mild (1-3) Acetaminophen 650 mg 01/24/21 12:58 01/27/21 04:25 Acetaminophen 325 Mg/10.15 Ml Oral Liqd Unit Dose FEEDTUBE 650 mg Q6H PRN Administration Pain, Mild (1-3) Lipase/Protease/Amylase 1 each 01/26/21 14:25 Lipase 10,500/Protease 25,000/Amylase 43,750 (Units) Dr Claudio FEEDTUBE PRN PRN For Clogged Feeding Tube Dexamethasone 6 mg 01/23/21 22:00 01/28/21 09:48 Dexamethasone 4 Mg/Ml Vial IV 02/01/21 22:01 6 mg BID CECE Administration Dextrose 50 ml 01/27/21 07:24 Dextrose 50% In Water (25gm) 50 Ml Syringe IV Q30MIN PRN Hypoglycemia Protocol Enoxaparin Sodium 120 mg 01/26/21 11:00 01/28/21 09:49 Enoxaparin 120 Mg/0.8 Ml Inj SUB-Q 120 mg Q24HR CECE Administration Famotidine 20 mg 01/24/21 10:00 01/28/21 09:48 Famotidine 20 Mg/2 Ml Inj IV 20 mg DAILY CECE Administration Fentanyl 50 mcg 01/22/21 22:39 Fentanyl 100 Mcg/2 Ml Inj IV Q10MIN PRN ANALGESIA Hydrophilic Ointment 1 applic 01/22/21 22:39 Lip Therapy Vaseline TP Q2HR PRN Dry Lips Fentanyl Citrate 2,000 mcg in 100 mls @ 6.124 mls/hr 01/22/21 23:00 01/28/21 10:50 Fentanyl Drip Premix IV 4 mcg/kg/hr TITR CECE 24.494 mls/hr Administration Protocol 1 MCG/KG/HR Propofol 1,000 mg in 100 mls @ 3.674 mls/hr 01/22/21 23:45 01/28/21 15:43 Diprivan 10 Mg/Ml IV 50 mcg/kg/min TITR CECE 36.741 mls/hr Administration Protocol 5 MCG/KG/MIN Sodium Chloride 1,000 mls @ 100 mls/hr 01/23/21 08:00 01/28/21 12:05 Nacl 0.9% 1000 Ml IV 100 mls/hr DIRECT CECE Administration Dexmedetomidine HCl 400 mcg/ 104 mls @ 6.368 mls/hr 01/26/21 11:00 01/28/21 15:43 Sodium Chloride IV 0.8 mcg/kg/hr TITRATE CECE 25.474 mls/hr Administration Protocol 0.2 MCG/KG/HR REMDESIVIR 100 mg/ Sodium 250 mls @ 500 mls/hr 01/28/21 21:00 Chloride IV 01/29/21 21:29 Q24HR@2100 CECE Norepinephrine 4 mg in 250 mls @ 7.5 mls/hr 01/28/21 14:00 Levophed Drip 4 Mg/Ns 250 Ml IV TITR CECE Protocol 2 MCG/MIN Cisatracurium Besylate 40 mg/ 400 mls @ 73.482 mls/hr 01/28/21 14:00 Sodium Chloride IV 01/30/21 13:59 TITR CECE Protocol 1 MCG/KG/MIN Insulin Human Regular 0 units 01/27/21 12:00 01/28/21 12:33 Insulin Regular, Human 100 Units/1 Ml SUB-Q 2 units Q6H CECE Administration Protocol Multi-Ingred Cream/Lotion/Oil/Oint 1 applic 01/22/21 22:39 Mineral Oil/Petrolatum, White Ophth Oint 3.5 Gm OU Q4HR PRN Dry Eye(s) Multi-Ingred Cream/Lotion/Oil/Oint 1 applic 01/28/21 16:00 Mineral Oil/Petrolatum, White Ophth Oint 3.5 Gm OU 01/30/21 10:01 Q6H [facility] Ondansetron HCl 4 mg 01/23/21 02:17 Ondansetron 4 Mg/2 Ml Inj IV Q8H PRN Nausea And Vomiting Simple Syrup 15 ml 01/26/21 14:25 Simple Syrup 15 Ml FEEDTUBE PRN PRN Hypoglycemia Simple Syrup 30 ml 01/26/21 14:25 Simple Syrup 15 Ml FEEDTUBE PRN PRN Hypoglycemia Sodium Bicarbonate 325 mg 01/26/21 14:25 Sodium Bicarbonate 325 Mg Tab FEEDTUBE PRN PRN For Clogged Feeding Tube Sodium Chloride 50 ml 01/23/21 21:00 01/27/21 21:57 Sodium Chloride 0.9% 50 Ml Ivpb IV 01/28/21 21:01 50 ml Q24HR@2100 [facility] Administration Nutrition/Malnutrition Assess - Dietary Evaluation Nutrition/Malnutrition Findings: Nutrition Notes Start: 01/26/21 13:59 Freq: Status: Active Protocol: Document 01/28/21 14:34 MALINI (Rec: 01/28/21 15:13 SYLVESTERALL [id number]) Nutrition Notes Initial or Follow up Reassessment Current Diagnosis Acute Kidney Injury,Diabetes, Sepsis,Hypertension, Respiratory Failure, Hyperlipidemia Other Pertinent Diagnosis COVID-19 (+), bilat pneu Current Diet TF - Nepro at 40ml/hr Labs/Tests BUN 59 Cr 2.2 BG 189 Mg 3.2 Pertinent Medications Propofol at 33.067ml/hr ( provides 873 kcal) Height 5 ft 8 in Weight 122.47 kg [place] Body Weight (kg) 70.00 BMI 41.0 Weight Status Morbidly Obese Subjective/Other Information Spoke with RN via phone at 14: 34. Pt was not proned today, but may be proned tomorrow. He remains on vent support and is tolerating TF at goal rate . Burn Absent Trauma Absent #1 Nutrition Diagnosis Inadequate oral intake Diagnosis Progress(for reassessment Continues documentation) Is patient on ventilator? Yes Is Patient Ambulatory and/or Out of Bed No REE-([place]-confined to bed) 2403.528 Kcal/Kg value to use for calculation 15 Approximate Energy Requirements Using 1837 kcal/Kg Calculation Used for Recommendations Kcal/kg Additional Notes Pro needs 0.8-1.2g/kg adjBW: 77-115g/day Fluid needs per MD Nutrition Intervention Nutrition Support: Continuous TF: Nepro at 30ml/ hr with 150ml water flush q4h. (Propofol providing 873 kcal) When proning: Proned position: Nepro at 20ml /hr x 12 hr with 100ml water flush q4h. Supine position: Nepro at 50ml /hr x 12hr with 200ml water flush q4h Kcal 1,296 Protein (gm) 58 Fluid (mL) 523 Goal #1 TF tolerance Goal #2 TF to meet at least 75% energy and pro needs Follow-Up By: 01/29/21 Additional Comments F/U: proning, vent status, propofol/adjust TF rate, wt <MONO SILVA - Last Filed: 01/28/21 18:24> Assessment and Plan Assessment and plan: I saw and evaluated the patient. I agree with the findings and the plan of care as documented in the Nurse Practitioner's~note, with the following corrections and additions. Hospitalist Physical - Constitutional Vitals: Temp Pulse Resp BP Pulse Ox 100.2 F H 73 18 137/73 92 01/28/21 12:00 01/28/21 16:00 01/28/21 04:00 01/28/21 15:38 01/28/21 15:38 Results - Labs CBC & Chem 7: 01/28/21 06:00 01/28/21 06:00 Labs: Laboratory Last Values WBC 7.8 K/mm3 (4.5-11.0) 01/28/21 06:00 RBC 3.59 M/mm3 (3.65-5.03) L 01/28/21 06:00 Hgb 11.6 gm/dl (11.8-15.2) L 01/28/21 06:00 Hct 34.8 % (35.5-45.6) L 01/28/21 06:00 MCV 97 fl (84-94) H 01/28/21 06:00 MCH 32 pg (28-32) 01/28/21 06:00 MCHC 33 % (32-34) 01/28/21 06:00 RDW 14.8 % (13.2-15.2) 01/28/21 06:00 Plt Count 401 K/mm3 (140-440) 01/28/21 06:00 Lymph % (Auto) 6.6 % (13.4-35.0) L 01/22/21 22:57 [place] % (Auto) 5.5 % (0.0-7.3) 01/22/21 22:57 Eos % (Auto) 0.0 % (0.0-4.3) 01/22/21 22:57 Baso % (Auto) 0.3 % (0.0-1.8) 01/22/21 22:57 Lymph # (Auto) 0.5 K/mm3 (1.2-5.4) L 01/22/21 22:57 [place] # (Auto) 0.4 K/mm3 (0.0-0.8) 01/22/21 22:57 Eos # (Auto) 0.0 K/mm3 (0.0-0.4) 01/22/21 22:57 Baso # (Auto) 0.0 K/mm3 (0.0-0.1) 01/22/21 22:57 Add Manual Diff Complete 01/28/21 06:00 Total Counted 100 01/28/21 06:00 Seg Neutrophils % Orthotics Assistant 01/28/21 06:00 Seg Neuts % (Manual) 96.0 % (40.0-70.0) H 01/28/21 06:00 Band Neutrophils % 1.0 % 01/27/21 05:29 Lymphocytes % (Manual) 3.0 % (13.4-35.0) L 01/28/21 06:00 Reactive Lymphs % (Man) 1.0 % 01/27/21 05:29 Monocytes % (Manual) 1.0 % (0.0-7.3) 01/28/21 06:00 Eosinophils % (Manual) 2.0 % (0.0-4.3) 01/24/21 05:05 Nucleated RBC % Not Reportable 01/28/21 06:00 Seg Neutrophils # 6.8 K/mm3 (1.8-7.7) 01/22/21 22:57 Seg Neutrophils # Man 7.5 K/mm3 (1.8-7.7) 01/28/21 06:00 Band Neutrophils # 0.0 K/mm3 01/28/21 06:00 Lymphocytes # (Manual) 0.2 K/mm3 (1.2-5.4) L 01/28/21 06:00 Abs React Lymphs (Man) 0.0 K/mm3 01/28/21 06:00 Monocytes # (Manual) 0.1 K/mm3 (0.0-0.8) 01/28/21 06:00 Eosinophils # (Manual) 0.0 K/mm3 (0.0-0.4) 01/28/21 06:00 Basophils # (Manual) 0.0 K/mm3 (0.0-0.1) 01/28/21 06:00 Metamyelocytes # 0.0 K/mm3 01/28/21 06:00 Myelocytes # 0.0 K/mm3 01/28/21 06:00 Promyelocytes # 0.0 K/mm3 01/28/21 06:00 Blast Cells # 0.0 K/mm3 01/28/21 06:00 WBC Morphology Not Reportable 01/28/21 06:00 Hypersegmented Neuts Not Reportable 01/28/21 06:00 Hyposegmented Neuts Not Reportable 01/28/21 06:00 Hypogranular Neuts Not Reportable 01/28/21 06:00 Smudge Cells Not Reportable 01/28/21 06:00 Toxic Granulation Not Reportable 01/28/21 06:00 Toxic Vacuolation Not Reportable 01/28/21 06:00 Dohle Bodies Not Reportable 01/28/21 06:00 Pelger-Huet Anomaly Not Reportable 01/28/21 06:00 Fátima Rods Not Reportable 01/28/21 06:00 Platelet Estimate Consistent w auto 01/28/21 06:00 Clumped Platelets Not Reportable 01/28/21 06:00 Plt Clumps, EDTA Not Reportable 01/28/21 06:00 Large Platelets Not Reportable 01/28/21 06:00 Giant Platelets Not Reportable 01/28/21 06:00 Platelet Satelliting Not Reportable 01/28/21 06:00 Plt Morphology Comment Not Reportable 01/28/21 06:00 RBC Morphology Normal 01/28/21 06:00 Dimorphic RBCs Not Reportable 01/28/21 06:00 Polychromasia Not Reportable 01/28/21 06:00 Hypochromasia Not Reportable 01/28/21 06:00 Poikilocytosis Not Reportable 01/28/21 06:00 Anisocytosis Not Reportable 01/28/21 06:00 Microcytosis Not Reportable 01/28/21 06:00 Macrocytosis Not Reportable 01/28/21 06:00 Spherocytes Not Reportable 01/28/21 06:00 Pappenheimer Bodies Not Reportable 01/28/21 06:00 Sickle Cells Not Reportable 01/28/21 06:00 Target Cells Not Reportable 01/28/21 06:00 Tear Drop Cells Not Reportable 01/28/21 06:00 Ovalocytes Not Reportable 01/28/21 06:00 Helmet Cells Not Reportable 01/28/21 06:00 [place] Bodies Not Reportable 01/28/21 06:00 [place] Rings Not Reportable 01/28/21 06:00 [place] Cells Not Reportable 01/28/21 06:00 Bite Cells Not Reportable 01/28/21 06:00 Crenated Cell Not Reportable 01/28/21 06:00 Elliptocytes Not Reportable 01/28/21 06:00 Acanthocytes (Spur) Not Reportable 01/28/21 06:00 Rouleaux Not Reportable 01/28/21 06:00 Hemoglobin C Crystals Not Reportable 01/28/21 06:00 Schistocytes Not Reportable 01/28/21 06:00 Malaria parasites Not Reportable 01/28/21 06:00 Aquiles Bodies Not Reportable 01/28/21 06:00 Hem Pathologist Commnt No 01/28/21 06:00 D-Dimer > 59193 ng/mlDDU (0-234) H 01/28/21 04:00 ABG pH 7.352 (7.320-7.450) 01/28/21 03:58 POC ABG pCO2 45.5 mmHg (32.0-48.0) 01/28/21 03:58 ABG pCO2 39.5 mm Hg 01/23/21 Unknown POC ABG pO2 52.9 mmHg (83-108) L 01/28/21 03:58 ABG pO2 165.4 mm Hg (80.0-90.0) H 01/23/21 Unknown POC ABG HCO3 24.7 01/28/21 03:58 ABG HCO3 22.4 mmol/L (20.0-26.0) 01/23/21 Unknown ABG O2 Saturation 84.8 (0-100) 01/28/21 03:58 ABG O2 Content 19.6 (0.0-44) 01/23/21 Unknown POC ABG Base Excess -1.1 01/28/21 03:58 ABG Base Excess -2.5 mmol/L (-2.0-3.0) L 01/23/21 Unknown ABG Hemoglobin 12.3 (12.0-17.5) 01/28/21 03:58 ABG Oxyhemoglobin 84.1 (94-98) L 01/28/21 03:58 ABG Carboxyhemoglobin 1.7 % (0.0-5.0) 01/23/21 Unknown ABG Methemoglobin 0.3 (0.0-1.5) 01/28/21 03:58 ABG Sodium 148.9 mmol/L (136.0-145.0) H 01/28/21 03:58 ABG Potassium 4.5 mmol/L (3.40-4.50) 01/28/21 03:58 ABG Chloride 117.0 mmol/L (98-107) H 01/28/21 03:58 ABG Glucose 194 mg/dL (65-95) H 01/28/21 03:58 Oxyhemoglobin 96.8 % (95.0-99.0) 01/23/21 Unknown Carboxyhemoglobin 0.5 (0.5-1.5) 01/28/21 03:58 FiO2 100 % 01/23/21 Unknown FiO2 % 60 01/28/21 03:58 Sodium 145 mmol/L (137-145) 01/28/21 06:00 Potassium 4.5 mmol/L (3.6-5.0) 01/28/21 06:00 Chloride 111.9 mmol/L (98-107) H 01/28/21 06:00 Carbon Dioxide 25 mmol/L (22-30) 01/28/21 06:00 Anion Gap 13 mmol/L 01/28/21 06:00 BUN 59 mg/dL (9-20) H 01/28/21 06:00 Creatinine 2.2 mg/dL (0.8-1.3) H 01/28/21 06:00 Estimated GFR 37 ml/min 01/28/21 06:00 BUN/Creatinine Ratio 27 % 01/28/21 06:00 Glucose 189 mg/dL (75-100) H 01/28/21 06:00 POC Glucose 198 mg/dL (70-105) H 01/28/21 16:43 Lactic Acid 1.90 mmol/L (0.7-2.0) 01/24/21 14:38 Calcium 8.1 mg/dL (8.4-10.2) L 01/28/21 06:00 Magnesium 3.20 mg/dL (1.7-2.3) H 01/28/21 06:00 Ferritin 798.0 ng/mL (30.0-300.0) H 01/28/21 04:00 Total Bilirubin 1.50 mg/dL (0.1-1.2) H 01/26/21 05:47 AST 37 units/L (5-40) 01/26/21 05:47 ALT 29 units/L (7-56) 01/26/21 05:47 Alkaline Phosphatase 70 units/L (35-129) 01/26/21 05:47 Lactate Dehydrogenase 679 units/L (91-180) H 01/28/21 04:00 C-Reactive Protein 17.10 mg/dL (0.00-1.30) H 01/28/21 04:00 Total Protein 7.2 g/dL (6.3-8.2) 01/26/21 05:47 Albumin 2.2 g/dL (3.9-5) L 01/26/21 05:47 Albumin/Globulin Ratio 0.4 % 01/26/21 05:47 Triglycerides 160 mg/dL (2-149) H 01/27/21 05:29 Procalcitonin 0.92 ng/mL (<0.15) 01/22/21 22:57 Arterial Blood Glucose 194 mg/dL (65-95) H 01/28/21 03:58 Arterial Blood Ionized Calcium 4.6 mg/dL (4.6-5.3) 01/28/21 03:58 Urine Color Nehal (Yellow) 01/22/21 22:39 Urine Turbidity Cloudy (Clear) 01/22/21 22:39 Urine pH 5.0 (5.0-7.0) 01/22/21 22:39 Ur Specific [place] 1.017 (1.003-1.030) 01/22/21 22:39 Urine Protein 100 mg/dl mg/dL (Negative) 01/22/21 22:39 Urine Glucose (UA) Neg mg/dL (Negative) 01/22/21 22:39 Urine Ketones Neg mg/dL (Negative) 01/22/21 22:39 Urine Blood Mod (Negative) 01/22/21 22:39 Urine Nitrite Neg (Negative) 01/22/21 22:39 Urine Bilirubin Neg (Negative) 01/22/21 22:39 Urine Urobilinogen 2.0 mg/dL (<2.0) 01/22/21 22:39 Ur Leukocyte Esterase Mod (Negative) 01/22/21 22:39 Urine WBC (Auto) < 1.0 /HPF (0.0-6.0) 01/22/21 22:39 Urine RBC (Auto) < 1.0 /HPF (0.0-6.0) 01/22/21 22:39 U Epithel Cells (Auto) < 1.0 /HPF (0-13.0) 01/22/21 22:39 Urine Creatinine 301.2 mg/dL (0.1-20.0) H 01/22/21 22:39 Urine Sodium 28 mmol/L 01/22/21 22:39 Coronavirus (PCR) Positive (Negative) A 01/23/21 08:41 Black/IV: Voiding Method Indwelling Catheter Active Medications - Current Medications Current Medications: Generic Name Dose Route Start Last Admin Trade Name Freq PRN Reason Stop Dose Admin Acetaminophen 650 mg 01/23/21 02:25 Acetaminophen 650 Mg Rect Supp VA Q4H PRN Pain, Mild (1-3) Acetaminophen 650 mg 01/24/21 12:58 01/27/21 04:25 Acetaminophen 325 Mg/10.15 Ml Oral Liqd Unit Dose FEEDTUBE 650 mg Q6H PRN Administration Pain, Mild (1-3) Lipase/Protease/Amylase 1 each 01/26/21 14:25 Lipase 10,500/Protease 25,000/Amylase 43,750 (Units) Dr Claudio FEEDTUBE PRN PRN For Clogged Feeding Tube Dexamethasone 6 mg 01/23/21 22:00 01/28/21 09:48 Dexamethasone 4 Mg/Ml Vial IV 02/01/21 22:01 6 mg BID CECE Administration Dextrose 50 ml 01/27/21 07:24 Dextrose 50% In Water (25gm) 50 Ml Syringe IV Q30MIN PRN Hypoglycemia Protocol Enoxaparin Sodium 120 mg 01/26/21 11:00 01/28/21 09:49 Enoxaparin 120 Mg/0.8 Ml Inj SUB-Q 120 mg Q24HR CECE Administration Famotidine 20 mg 01/24/21 10:00 01/28/21 09:48 Famotidine 20 Mg/2 Ml Inj IV 20 mg DAILY CECE Administration Fentanyl 50 mcg 01/22/21 22:39 Fentanyl 100 Mcg/2 Ml Inj IV Q10MIN PRN ANALGESIA Hydrophilic Ointment 1 applic 01/22/21 22:39 Lip Therapy Vaseline TP Q2HR PRN Dry Lips Fentanyl Citrate 2,000 mcg in 100 mls @ 6.124 mls/hr 01/22/21 23:00 01/28/21 10:50 Fentanyl Drip Premix IV 4 mcg/kg/hr TITR CECE 24.494 mls/hr Administration Protocol 1 MCG/KG/HR Propofol 1,000 mg in 100 mls @ 3.674 mls/hr 01/22/21 23:45 01/28/21 15:43 Diprivan 10 Mg/Ml IV 50 mcg/kg/min TITR CECE 36.741 mls/hr Administration Protocol 5 MCG/KG/MIN Sodium Chloride 1,000 mls @ 100 mls/hr 01/23/21 08:00 01/28/21 12:05 Nacl 0.9% 1000 Ml IV 100 mls/hr DIRECT CECE Administration Dexmedetomidine HCl 400 mcg/ 104 mls @ 6.368 mls/hr 01/26/21 11:00 01/28/21 17:50 Sodium Chloride IV 1.2 mcg/kg/hr TITRATE CECE 38.211 mls/hr Titration Protocol 0.2 MCG/KG/HR REMDESIVIR 100 mg/ Sodium 250 mls @ 500 mls/hr 01/28/21 21:00 Chloride IV 01/29/21 21:29 Q24HR@2100 CECE Norepinephrine 4 mg in 250 mls @ 7.5 mls/hr 01/28/21 14:00 Levophed Drip 4 Mg/Ns 250 Ml IV TITR CECE Protocol 2 MCG/MIN Cisatracurium Besylate 40 mg/ 400 mls @ 73.482 mls/hr 01/28/21 14:00 01/28/21 16:00 Sodium Chloride IV 01/30/21 13:59 1 mcg/kg/min TITR CECE 73.482 mls/hr Administration Protocol 1 MCG/KG/MIN Insulin Human Regular 0 units 01/27/21 12:00 01/28/21 18:19 Insulin Regular, Human 100 Units/1 Ml SUB-Q 2 units Q6H CECE Administration Protocol Multi-Ingred Cream/Lotion/Oil/Oint 1 applic 01/22/21 22:39 Mineral Oil/Petrolatum, White Ophth Oint 3.5 Gm OU Q4HR PRN Dry Eye(s) Multi-Ingred Cream/Lotion/Oil/Oint 1 applic 01/28/21 16:00 01/28/21 17:00 Mineral Oil/Petrolatum, White Ophth Oint 3.5 Gm OU 01/30/21 10:01 1 applic Q6H CECE Administration Ondansetron HCl 4 mg 01/23/21 02:17 Ondansetron 4 Mg/2 Ml Inj IV Q8H PRN Nausea And Vomiting Simple Syrup 15 ml 01/26/21 14:25 Simple Syrup 15 Ml FEEDTUBE PRN PRN Hypoglycemia Simple Syrup 30 ml 01/26/21 14:25 Simple Syrup 15 Ml FEEDTUBE PRN PRN Hypoglycemia Sodium Bicarbonate 325 mg 01/26/21 14:25 Sodium Bicarbonate 325 Mg Tab FEEDTUBE PRN PRN For Clogged Feeding Tube Sodium Chloride 50 ml 01/23/21 21:00 01/27/21 21:57 Sodium Chloride 0.9% 50 Ml Ivpb IV 01/28/21 21:01 50 ml Q24HR@2100 [facility] Administration Nutrition/Malnutrition Assess - Dietary Evaluation Nutrition/Malnutrition Findings: Nutrition Notes Start: 01/26/21 13:59 Freq: Status: Active Protocol: Document 01/28/21 14:34 MALINI (Rec: 01/28/21 15:13 MALINI [id number]) Nutrition Notes Initial or Follow up Reassessment Current Diagnosis Acute Kidney Injury,Diabetes, Sepsis,Hypertension, Respiratory Failure, Hyperlipidemia Other Pertinent Diagnosis COVID-19 (+), bilat pneu Current Diet TF - Nepro at 40ml/hr Labs/Tests BUN 59 Cr 2.2 BG 189 Mg 3.2 Pertinent Medications Propofol at 33.067ml/hr ( provides 873 kcal) Height 5 ft 8 in Weight 122.47 kg [place] Body Weight (kg) 70.00 BMI 41.0 Weight Status Morbidly Obese Subjective/Other Information Spoke with RN via phone at 14: 34. Pt was not proned today, but may be proned tomorrow. He remains on vent support and is tolerating TF at goal rate . Burn Absent Trauma Absent #1 Nutrition Diagnosis Inadequate oral intake Diagnosis Progress(for reassessment Continues documentation) Is patient on ventilator? Yes Is Patient Ambulatory and/or Out of Bed No REE-([place]-confined to bed) 2403.528 Kcal/Kg value to use for calculation 15 Approximate Energy Requirements Using 1837 kcal/Kg Calculation Used for Recommendations Kcal/kg Additional Notes Pro needs 0.8-1.2g/kg adjBW: 77-115g/day Fluid needs per MD Nutrition Intervention Nutrition Support: Continuous TF: Nepro at 30ml/ hr with 150ml water flush q4h. (Propofol providing 873 kcal) When proning: Proned position: Nepro at 20ml /hr x 12 hr with 100ml water flush q4h. Supine position: Nepro at 50ml /hr x 12hr with 200ml water flush q4h Kcal 1,296 Protein (gm) 58 Fluid (mL) 523 Goal #1 TF tolerance Goal #2 TF to meet at least 75% energy and pro needs Follow-Up By: 01/29/21 Additional Comments F/U: proning, vent status, propofol/adjust TF rate, wt
[2021-01-28] MEDS: MINERAL OIL/PETROLATUM, WHITE OPHTH OINT 3.5 GM OU SCH ×2 (17:00→21:37)
[2021-01-28] MEDS: REMDESIVIR 100 MG in SODIUM CHLORIDE 0.9% 250ML 250 ML IV SCH (20:51)
[2021-01-28] MEDS: SODIUM CHLORIDE 0.9% 50 ML IVPB IV SCH (20:52)
[2021-01-29] MEDS: INSULIN REGULAR, HUMAN 100 UNITS/1 ML SUB-Q SCH ×3 (01:55→12:00)
[2021-01-29] MEDS: MINERAL OIL/PETROLATUM, WHITE OPHTH OINT 3.5 GM OU SCH ×4 (04:58→21:10)
[2021-01-29 05:53] LABS: Hematocrit 37.1 % (35.5-45.6); Hemoglobin 11.9 gm/dl (11.8-15.2); Mean Corpuscular HGB Conc 32 % (32-34); Mean Corpuscular Volume 101 fl (84-94); Platelet Count 378 K/mm3 (140-440); Red Blood Count 3.69 M/mm3 (3.65-5.03); Red Cell Distribution Width 15.7 % (13.2-15.2)
[2021-01-29 06:06] LABS: Calcium 7.9 mg/dL (8.4-10.2)
--- NOTE | 2021-01-29 06:17 | XRay Report ---
CHEST 1 VIEW INDICATION: follow up respiratory failure COMPARISON: One day prior. FINDINGS: Support devices: Unchanged. Heart: Stable. Lungs/Pleura: Bilateral lung disease persists, but there appears to have been some improvement of the left lung disease. IMPRESSION: 1. Slight improvement. Signer Name: Lavon Padilla MD Signed: 01/29/2021 6:13 AM Workstation Name: [id number]
[2021-01-29] MEDS: fentaNYL DRIP Premix 2,000 MCG/100 ML BAG IV SCH ×4 (06:44→21:47)
[2021-01-29] MEDS: SODIUM CHLORIDE 0.9% 1000 ML 1,000 ML IV SCH (07:26)
[2021-01-29] MEDS: CISATRACURIUM IV SCH ×4 (08:05→23:38)
[2021-01-29] MEDS: SODIUM CHLORIDE 0.9% IV SCH ×4 (08:05→23:38)
[2021-01-29 08:28] LABS: Total Cells Counted 100
[2021-01-29 08:29] LABS: Platelet Estimate Consistent w Auto; RBC Morphology Normal
[2021-01-29] MEDS ORDERED: SODIUM POLYSTYRENE 15 GM/60 ML ORAL LIQD PO NR (08:50)
[2021-01-29] MEDS ORDERED: INSULIN REGULAR, HUMAN 100 UNITS/1 ML SUB-Q NR (08:51)
[2021-01-29] MEDS ORDERED: DEXTROSE 50% IN WATER (25GM) 50 ML SYRINGE IV NR (09:00)
[2021-01-29] MEDS: dexAMETHasone 4 MG/ML VIAL IV SCH ×2 (09:11→21:10)
[2021-01-29] MEDS: FAMOTIDINE 20 MG/2 ML INJ IV SCH (09:15)
--- NOTE | 2021-01-29 09:23 | Progress Note ---
Assessment and Plan 60 y/o male with ARDS secondary most likely to COVID 19 pneumonia. 01/29/21: will increase tidal volume and/or increase respiratory rate. Repeat ABG this afternoon. Continue paralytic and adequate sedation. Continue steroid and remdesivir, follow up any renal recs. Prognosis remains guarded. Wean Fio2 for sats >88% 01/28/21: Increased PEEP to 16. Will paralyze patient today and increase sedation. Ordering picc line for possible vasopressor therapy needs. Continue BID steroids. Renal function is slightly better today with fluids but could be making oxygenation worse. Not able to diurese. Still making urine. Continue Remdesivir. Watch for fever curve. If not improvement in the next 24 hours with paralyzing, will prone tomorrow morning. 01/27/21: Continue PEEP at 14. No weaning until FiO2 is at or below 40-45%. Continue anticoagulation. Getting Remdesivir now. Continue BID steroids. Renal has increased the fluids. Monitor urine output and renal function. Overall prognosis is very very guarded, especially if renal status worsens. 01/26/21: Increase PEEP to 14. Will add Precedex therapy. If patient does not respond to increases in PEEP may need to prone. Will place patient on lovenox and will feed patient. Remdesivir coming. Continue BID steroids. Prognosis is guarded. 01/25/21: Hold on proning today. Continue BID steroids. ABG this AM was adequate. Pending abg tomorrow, may increase PEEP if not able to wean FiO2 any further. Per charting Remdesivir to arrive tomorrow. Guarded prognosis. 01/24/21: Continue BID steroids. No abg done this am but able to wean FiO2. Will obtain ABG in the am. Hold on proning for right now. Renal following, would like to diurese but they are given fluids for deisi. Agree with ID assessment and note. Guarded prognosis. 1. Increase steroids to BID given size 2. Check with ID to see if he is a candidate for remdesivir or any other experiemental therapy 3. Hold on proning for right now 4. Renal consulted and giving IVF's currently Guarded prognosis. CCT 31 minutes. Subjective Date of service: 01/29/21 Principal diagnosis: DEISI Interval history: Oxygen improved but CO2 elevated with worsening pH. Renal function unchanged. Paralyzed and adequately sedated. Objective Vital Signs - 12hr 01/28/21 01/28/21 01/28/21 21:30 21:45 22:00 Temperature Pulse Rate 71 72 73 Pulse Rate [ From Monitor] Respiratory 18 18 18 Rate Blood Pressure 108/63 110/64 113/63 O2 Sat by Pulse 94 94 93 Oximetry 01/28/21 01/28/21 01/28/21 22:15 22:30 22:45 Temperature Pulse Rate 75 79 81 Pulse Rate [ From Monitor] Respiratory 18 18 18 Rate Blood Pressure 113/63 117/66 120/63 O2 Sat by Pulse 93 93 93 Oximetry 01/28/21 01/28/21 01/28/21 22:54 23:00 23:15 Temperature Pulse Rate 83 83 83 Pulse Rate [ From Monitor] Respiratory 18 18 18 Rate Blood Pressure 120/63 119/63 120/64 O2 Sat by Pulse 93 93 93 Oximetry 01/28/21 01/28/21 01/28/21 23:30 23:36 23:45 Temperature Pulse Rate 81 74 80 Pulse Rate [ From Monitor] Respiratory 18 18 Rate Blood Pressure 117/64 117/64 116/64 O2 Sat by Pulse 93 93 93 Oximetry 01/29/21 01/29/21 01/29/21 00:00 00:15 00:30 Temperature 99.3 F Pulse Rate 79 78 78 Pulse Rate [ 86 From Monitor] Respiratory 18 18 18 Rate Blood Pressure 119/64 116/66 117/63 O2 Sat by Pulse 93 93 93 Oximetry 01/29/21 01/29/21 01/29/21 00:45 01:00 01:16 Temperature Pulse Rate 82 87 102 H Pulse Rate [ From Monitor] Respiratory 18 18 19 Rate Blood Pressure 123/67 132/66 151/79 O2 Sat by Pulse 94 94 94 Oximetry 01/29/21 01/29/21 01/29/21 01:30 01:45 02:00 Temperature Pulse Rate 95 H 91 H 92 H Pulse Rate [ From Monitor] Respiratory 18 18 18 Rate Blood Pressure 151/79 129/66 135/67 O2 Sat by Pulse 94 94 94 Oximetry 01/29/21 01/29/21 01/29/21 02:15 02:30 02:45 Temperature Pulse Rate 89 86 83 Pulse Rate [ From Monitor] Respiratory 18 18 18 Rate Blood Pressure 130/65 124/65 123/65 O2 Sat by Pulse 93 94 94 Oximetry 01/29/21 01/29/21 01/29/21 03:00 03:15 03:30 Temperature 99.6 F Pulse Rate 82 82 83 Pulse Rate [ From Monitor] Respiratory 18 18 18 Rate Blood Pressure 121/65 121/66 122/66 O2 Sat by Pulse 94 94 95 Oximetry 01/29/21 01/29/21 01/29/21 03:45 04:00 04:15 Temperature Pulse Rate 80 79 78 Pulse Rate [ 78 From Monitor] Respiratory 18 18 18 Rate Blood Pressure 120/62 116/63 119/67 O2 Sat by Pulse 95 95 95 Oximetry 01/29/21 01/29/21 01/29/21 04:30 04:46 05:00 Temperature Pulse Rate 77 78 83 Pulse Rate [ From Monitor] Respiratory 18 18 19 Rate Blood Pressure 117/63 117/63 118/62 O2 Sat by Pulse 95 95 95 Oximetry 01/29/21 01/29/21 01/29/21 05:15 05:30 05:45 Temperature Pulse Rate 80 76 71 Pulse Rate [ From Monitor] Respiratory 18 24 24 Rate Blood Pressure 127/67 117/68 113/68 O2 Sat by Pulse 95 93 93 Oximetry 01/29/21 01/29/21 01/29/21 06:00 06:15 06:30 Temperature Pulse Rate 75 71 68 Pulse Rate [ From Monitor] Respiratory 24 24 24 Rate Blood Pressure 118/61 104/62 108/62 O2 Sat by Pulse 92 91 92 Oximetry 01/29/21 01/29/21 01/29/21 06:45 07:00 07:15 Temperature Pulse Rate 67 65 65 Pulse Rate [ From Monitor] Respiratory 24 24 24 Rate Blood Pressure 108/65 108/63 106/63 O2 Sat by Pulse 92 93 94 Oximetry 01/29/21 01/29/21 01/29/21 07:30 07:45 07:56 Temperature Pulse Rate 66 66 67 Pulse Rate [ From Monitor] Respiratory 24 24 Rate Blood Pressure 110/64 110/64 110/64 O2 Sat by Pulse 95 95 94 Oximetry 01/29/21 01/29/21 01/29/21 08:00 08:15 08:30 Temperature 99 F Pulse Rate 67 67 67 Pulse Rate [ From Monitor] Respiratory 24 24 24 Rate Blood Pressure 108/64 106/62 104/59 O2 Sat by Pulse 94 93 94 Oximetry 01/29/21 08:45 Temperature Pulse Rate 69 Pulse Rate [ From Monitor] Respiratory 24 Rate Blood Pressure 111/61 O2 Sat by Pulse 94 Oximetry CBC and BMP: 01/29/21 Unknown 01/29/21 06:00 ABG, PT/INR, D-dimer: ABG ABG pH 7.119 (7.320-7.450) L 01/29/21 05:00 POC ABG pCO2 87.1 mmHg (32.0-48.0) H 01/29/21 05:00 ABG pCO2 39.5 mm Hg 01/23/21 Unknown POC ABG pO2 87.8 mmHg (83-108) 01/29/21 05:00 ABG pO2 165.4 mm Hg (80.0-90.0) H 01/23/21 Unknown POC ABG HCO3 27.6 01/29/21 05:00 ABG O2 Saturation 94.9 (0-100) 01/29/21 05:00 PT/INR, D-dimer D-Dimer > 84931 ng/mlDDU (0-234) H 01/28/21 04:00 Abnormal lab findings: Abnormal Labs 01/22/21 01/22/21 01/22/21 22:39 22:57 22:57 WBC RBC Hgb Hct MCV MCH MCHC RDW Lymph % (Auto) 6.6 L Lymph # (Auto) 0.5 L Seg Neutrophils % 87.6 H Seg Neuts % (Manual) Lymphocytes % (Manual) Seg Neutrophils # Man Lymphocytes # (Manual) D-Dimer ABG pH POC ABG pCO2 POC ABG pO2 ABG pO2 ABG Base Excess ABG Oxyhemoglobin ABG Sodium ABG Potassium ABG Chloride ABG Glucose Carboxyhemoglobin Sodium 129 L Potassium 3.4 L Chloride 90.4 L Carbon Dioxide BUN 34 H Creatinine 1.5 H Glucose 146 H POC Glucose Lactic Acid Calcium 7.8 L Magnesium Ferritin Total Bilirubin AST 75 H ALT 57 H Lactate Dehydrogenase C-Reactive Protein Albumin 2.9 L Triglycerides Arterial Blood Glucose Arterial Blood Ionized Calcium Urine Creatinine 301.2 H Coronavirus (PCR) 01/22/21 01/22/21 01/22/21 22:57 22:57 22:57 WBC RBC Hgb Hct MCV MCH MCHC RDW Lymph % (Auto) Lymph # (Auto) Seg Neutrophils % Seg Neuts % (Manual) Lymphocytes % (Manual) Seg Neutrophils # Man Lymphocytes # (Manual) D-Dimer 1173.89 H ABG pH POC ABG pCO2 POC ABG pO2 ABG pO2 ABG Base Excess ABG Oxyhemoglobin ABG Sodium ABG Potassium ABG Chloride ABG Glucose Carboxyhemoglobin Sodium Potassium Chloride Carbon Dioxide BUN Creatinine Glucose 149 H POC Glucose Lactic Acid 2.10 H* Calcium Magnesium Ferritin Total Bilirubin AST ALT Lactate Dehydrogenase 685 H C-Reactive Protein 30.40 H Albumin Triglycerides Arterial Blood Glucose Arterial Blood Ionized Calcium Urine Creatinine Coronavirus (PCR) 01/22/21 01/23/21 01/23/21 22:57 08:41 10:01 WBC RBC Hgb Hct MCV MCH MCHC RDW Lymph % (Auto) Lymph # (Auto) Seg Neutrophils % Seg Neuts % (Manual) Lymphocytes % (Manual) Seg Neutrophils # Man Lymphocytes # (Manual) D-Dimer ABG pH POC ABG pCO2 POC ABG pO2 ABG pO2 ABG Base Excess ABG Oxyhemoglobin ABG Sodium ABG Potassium ABG Chloride ABG Glucose Carboxyhemoglobin Sodium 131 L Potassium Chloride 88.7 L Carbon Dioxide 18 L BUN 36 H Creatinine 1.6 H Glucose 147 H POC Glucose Lactic Acid Calcium 7.5 L Magnesium Ferritin 1207.0 H Total Bilirubin AST ALT Lactate Dehydrogenase C-Reactive Protein Albumin Triglycerides Arterial Blood Glucose Arterial Blood Ionized Calcium Urine Creatinine Coronavirus (PCR) Positive A 01/23/21 01/23/21 01/24/21 20:49 Unknown 00:10 WBC RBC Hgb Hct MCV MCH MCHC RDW Lymph % (Auto) Lymph # (Auto) Seg Neutrophils % Seg Neuts % (Manual) Lymphocytes % (Manual) Seg Neutrophils # Man Lymphocytes # (Manual) D-Dimer ABG pH POC ABG pCO2 POC ABG pO2 ABG pO2 165.4 H ABG Base Excess -2.5 L ABG Oxyhemoglobin ABG Sodium ABG Potassium ABG Chloride ABG Glucose Carboxyhemoglobin Sodium 130 L Potassium Chloride 91.0 L Carbon Dioxide 20 L BUN 52 H Creatinine 3.8 H D Glucose 150 H POC Glucose 125 H Lactic Acid Calcium 8.0 L Magnesium Ferritin Total Bilirubin AST 42 H ALT Lactate Dehydrogenase C-Reactive Protein Albumin 2.4 L Triglycerides Arterial Blood Glucose Arterial Blood Ionized Calcium Urine Creatinine Coronavirus (PCR) 01/24/21 01/24/21 01/24/21 05:05 05:05 05:05 WBC 14.0 H RBC Hgb Hct MCV 95 H MCH 33 H MCHC RDW Lymph % (Auto) Lymph # (Auto) Seg Neutrophils % Seg Neuts % (Manual) 91.0 H Lymphocytes % (Manual) 4.0 L Seg Neutrophils # Man 12.7 H Lymphocytes # (Manual) 0.6 L D-Dimer 6159.48 H ABG pH POC ABG pCO2 POC ABG pO2 ABG pO2 ABG Base Excess ABG Oxyhemoglobin ABG Sodium ABG Potassium ABG Chloride ABG Glucose Carboxyhemoglobin Sodium Potassium Chloride Carbon Dioxide BUN Creatinine Glucose POC Glucose Lactic Acid Calcium Magnesium Ferritin 1178.0 H Total Bilirubin AST ALT Lactate Dehydrogenase C-Reactive Protein Albumin Triglycerides Arterial Blood Glucose Arterial Blood Ionized Calcium Urine Creatinine Coronavirus (PCR) 01/24/21 01/24/21 01/24/21 05:05 05:05 05:05 WBC RBC Hgb Hct MCV MCH MCHC RDW Lymph % (Auto) Lymph # (Auto) Seg Neutrophils % Seg Neuts % (Manual) Lymphocytes % (Manual) Seg Neutrophils # Man Lymphocytes # (Manual) D-Dimer ABG pH POC ABG pCO2 POC ABG pO2 ABG pO2 ABG Base Excess ABG Oxyhemoglobin ABG Sodium ABG Potassium ABG Chloride ABG Glucose Carboxyhemoglobin Sodium 132 L Potassium Chloride 93.1 L Carbon Dioxide 21 L BUN 57 H Creatinine 3.7 H Glucose 133 H POC Glucose Lactic Acid 2.20 H* Calcium 7.7 L Magnesium Ferritin Total Bilirubin AST ALT Lactate Dehydrogenase 658 H C-Reactive Protein 33.20 H Albumin 2.4 L Triglycerides Arterial Blood Glucose Arterial Blood Ionized Calcium Urine Creatinine Coronavirus (PCR) 01/24/21 01/24/21 01/25/21 05:34 17:35 04:15 WBC RBC Hgb Hct MCV MCH MCHC RDW Lymph % (Auto) Lymph # (Auto) Seg Neutrophils % Seg Neuts % (Manual) Lymphocytes % (Manual) Seg Neutrophils # Man Lymphocytes # (Manual) D-Dimer ABG pH POC ABG pCO2 POC ABG pO2 63.2 L ABG pO2 ABG Base Excess ABG Oxyhemoglobin 89.6 L ABG Sodium ABG Potassium ABG Chloride ABG Glucose 165 H Carboxyhemoglobin 0.3 L Sodium Potassium Chloride Carbon Dioxide BUN Creatinine Glucose POC Glucose 136 H 137 H Lactic Acid Calcium Magnesium Ferritin Total Bilirubin AST ALT Lactate Dehydrogenase C-Reactive Protein Albumin Triglycerides Arterial Blood Glucose 165 H Arterial Blood Ionized Calcium 4.3 L Urine Creatinine Coronavirus (PCR) 01/25/21 01/25/21 01/25/21 05:40 05:40 05:59 WBC RBC Hgb Hct MCV 95 H MCH 33 H MCHC 35 H RDW Lymph % (Auto) Lymph # (Auto) Seg Neutrophils % Seg Neuts % (Manual) 95.0 H Lymphocytes % (Manual) 3.0 L Seg Neutrophils # Man 7.8 H Lymphocytes # (Manual) 0.2 L D-Dimer ABG pH POC ABG pCO2 POC ABG pO2 ABG pO2 ABG Base Excess ABG Oxyhemoglobin ABG Sodium ABG Potassium ABG Chloride ABG Glucose Carboxyhemoglobin Sodium Potassium Chloride Carbon Dioxide BUN 67 H Creatinine 3.4 H Glucose 153 H POC Glucose 140 H Lactic Acid Calcium 7.5 L Magnesium Ferritin Total Bilirubin 1.40 H AST 62 H ALT Lactate Dehydrogenase C-Reactive Protein Albumin 2.6 L Triglycerides Arterial Blood Glucose Arterial Blood Ionized Calcium Urine Creatinine Coronavirus (PCR) 01/25/21 01/25/21 01/25/21 12:00 17:17 23:41 WBC RBC Hgb Hct MCV MCH MCHC RDW Lymph % (Auto) Lymph # (Auto) Seg Neutrophils % Seg Neuts % (Manual) Lymphocytes % (Manual) Seg Neutrophils # Man Lymphocytes # (Manual) D-Dimer ABG pH POC ABG pCO2 POC ABG pO2 ABG pO2 ABG Base Excess ABG Oxyhemoglobin ABG Sodium ABG Potassium ABG Chloride ABG Glucose Carboxyhemoglobin Sodium Potassium Chloride Carbon Dioxide BUN Creatinine Glucose POC Glucose 143 H 149 H 132 H Lactic Acid Calcium Magnesium Ferritin Total Bilirubin AST ALT Lactate Dehydrogenase C-Reactive Protein Albumin Triglycerides Arterial Blood Glucose Arterial Blood Ionized Calcium Urine Creatinine Coronavirus (PCR) 01/26/21 01/26/21 01/26/21 03:43 05:46 05:47 WBC RBC Hgb Hct 35.3 L MCV 96 H MCH 33 H MCHC RDW Lymph % (Auto) Lymph # (Auto) Seg Neutrophils % Seg Neuts % (Manual) 96.0 H Lymphocytes % (Manual) 2.0 L Seg Neutrophils # Man Lymphocytes # (Manual) 0.1 L D-Dimer ABG pH POC ABG pCO2 POC ABG pO2 70.0 L ABG pO2 ABG Base Excess ABG Oxyhemoglobin 91.9 L ABG Sodium ABG Potassium ABG Chloride 109.0 H ABG Glucose 165 H Carboxyhemoglobin Sodium Potassium Chloride Carbon Dioxide BUN Creatinine Glucose POC Glucose 161 H Lactic Acid Calcium Magnesium Ferritin Total Bilirubin AST ALT Lactate Dehydrogenase C-Reactive Protein Albumin Triglycerides Arterial Blood Glucose 165 H Arterial Blood Ionized Calcium 4.5 L Urine Creatinine Coronavirus (PCR) 01/26/21 01/26/21 01/26/21 05:47 05:47 05:47 WBC RBC Hgb Hct MCV MCH MCHC RDW Lymph % (Auto) Lymph # (Auto) Seg Neutrophils % Seg Neuts % (Manual) Lymphocytes % (Manual) Seg Neutrophils # Man Lymphocytes # (Manual) D-Dimer > 00711 H ABG pH POC ABG pCO2 POC ABG pO2 ABG pO2 ABG Base Excess ABG Oxyhemoglobin ABG Sodium ABG Potassium ABG Chloride ABG Glucose Carboxyhemoglobin Sodium Potassium Chloride Carbon Dioxide BUN 57 H Creatinine 2.2 H Glucose 185 H POC Glucose Lactic Acid Calcium 8.1 L Magnesium Ferritin 1178.0 H Total Bilirubin AST ALT Lactate Dehydrogenase C-Reactive Protein Albumin Triglycerides Arterial Blood Glucose Arterial Blood Ionized Calcium Urine Creatinine Coronavirus (PCR) 01/26/21 01/26/21 01/26/21 05:47 05:47 11:34 WBC RBC Hgb Hct MCV MCH MCHC RDW Lymph % (Auto) Lymph # (Auto) Seg Neutrophils % Seg Neuts % (Manual) Lymphocytes % (Manual) Seg Neutrophils # Man Lymphocytes # (Manual) D-Dimer ABG pH POC ABG pCO2 POC ABG pO2 ABG pO2 ABG Base Excess ABG Oxyhemoglobin ABG Sodium ABG Potassium ABG Chloride ABG Glucose Carboxyhemoglobin Sodium Potassium Chloride 107.1 H Carbon Dioxide BUN 56 H Creatinine 2.2 H Glucose 188 H POC Glucose 129 H Lactic Acid Calcium 8.0 L Magnesium Ferritin Total Bilirubin 1.50 H AST ALT Lactate Dehydrogenase 588 H C-Reactive Protein 40.10 H Albumin 2.2 L Triglycerides Arterial Blood Glucose Arterial Blood Ionized Calcium Urine Creatinine Coronavirus (PCR) 01/26/21 01/26/21 01/27/21 18:17 23:20 02:45 WBC RBC Hgb Hct MCV MCH MCHC RDW Lymph % (Auto) Lymph # (Auto) Seg Neutrophils % Seg Neuts % (Manual) Lymphocytes % (Manual) Seg Neutrophils # Man Lymphocytes # (Manual) D-Dimer ABG pH 7.319 L POC ABG pCO2 50.7 H POC ABG pO2 63.0 L ABG pO2 ABG Base Excess ABG Oxyhemoglobin ABG Sodium 145.2 H ABG Potassium 5.1 H ABG Chloride 114.0 H ABG Glucose 178 H Carboxyhemoglobin Sodium Potassium Chloride Carbon Dioxide BUN Creatinine Glucose POC Glucose 205 H 155 H Lactic Acid Calcium Magnesium Ferritin Total Bilirubin AST ALT Lactate Dehydrogenase C-Reactive Protein Albumin Triglycerides Arterial Blood Glucose 178 H Arterial Blood Ionized Calcium Urine Creatinine Coronavirus (PCR) 01/27/21 01/27/21 01/27/21 05:29 05:29 05:29 WBC RBC 3.58 L Hgb 11.7 L Hct 34.9 L MCV 97 H MCH 33 H MCHC RDW Lymph % (Auto) Lymph # (Auto) Seg Neutrophils % Seg Neuts % (Manual) 88.0 H Lymphocytes % (Manual) 7.0 L Seg Neutrophils # Man Lymphocytes # (Manual) 0.5 L D-Dimer ABG pH POC ABG pCO2 POC ABG pO2 ABG pO2 ABG Base Excess ABG Oxyhemoglobin ABG Sodium ABG Potassium ABG Chloride ABG Glucose Carboxyhemoglobin Sodium Potassium 5.2 H Chloride 109.6 H Carbon Dioxide BUN 67 H Creatinine 2.8 H Glucose 195 H POC Glucose Lactic Acid Calcium 7.9 L Magnesium 4.00 H Ferritin Total Bilirubin AST ALT Lactate Dehydrogenase C-Reactive Protein Albumin Triglycerides Arterial Blood Glucose Arterial Blood Ionized Calcium Urine Creatinine Coronavirus (PCR) 01/27/21 01/27/21 01/27/21 05:29 05:31 11:27 WBC RBC Hgb Hct MCV MCH MCHC RDW Lymph % (Auto) Lymph # (Auto) Seg Neutrophils % Seg Neuts % (Manual) Lymphocytes % (Manual) Seg Neutrophils # Man Lymphocytes # (Manual) D-Dimer ABG pH POC ABG pCO2 POC ABG pO2 ABG pO2 ABG Base Excess ABG Oxyhemoglobin ABG Sodium ABG Potassium ABG Chloride ABG Glucose Carboxyhemoglobin Sodium Potassium Chloride Carbon Dioxide BUN Creatinine Glucose POC Glucose 176 H 189 H Lactic Acid Calcium Magnesium Ferritin Total Bilirubin AST ALT Lactate Dehydrogenase C-Reactive Protein Albumin Triglycerides 160 H Arterial Blood Glucose Arterial Blood Ionized Calcium Urine Creatinine Coronavirus (PCR) 01/27/21 01/27/21 01/28/21 18:08 23:30 03:58 WBC RBC Hgb Hct MCV MCH MCHC RDW Lymph % (Auto) Lymph # (Auto) Seg Neutrophils % Seg Neuts % (Manual) Lymphocytes % (Manual) Seg Neutrophils # Man Lymphocytes # (Manual) D-Dimer ABG pH POC ABG pCO2 POC ABG pO2 52.9 L ABG pO2 ABG Base Excess ABG Oxyhemoglobin 84.1 L ABG Sodium 148.9 H ABG Potassium ABG Chloride 117.0 H ABG Glucose 194 H Carboxyhemoglobin Sodium Potassium Chloride Carbon Dioxide BUN Creatinine Glucose POC Glucose 212 H 175 H Lactic Acid Calcium Magnesium Ferritin Total Bilirubin AST ALT Lactate Dehydrogenase C-Reactive Protein Albumin Triglycerides Arterial Blood Glucose 194 H Arterial Blood Ionized Calcium Urine Creatinine Coronavirus (PCR) 01/28/21 01/28/21 01/28/21 04:00 04:00 04:00 WBC RBC Hgb Hct MCV MCH MCHC RDW Lymph % (Auto) Lymph # (Auto) Seg Neutrophils % Seg Neuts % (Manual) Lymphocytes % (Manual) Seg Neutrophils # Man Lymphocytes # (Manual) D-Dimer > 67667 H ABG pH POC ABG pCO2 POC ABG pO2 ABG pO2 ABG Base Excess ABG Oxyhemoglobin ABG Sodium ABG Potassium ABG Chloride ABG Glucose Carboxyhemoglobin Sodium Potassium Chloride Carbon Dioxide BUN Creatinine Glucose POC Glucose Lactic Acid Calcium Magnesium Ferritin 798.0 H Total Bilirubin AST ALT Lactate Dehydrogenase 679 H C-Reactive Protein 17.10 H Albumin Triglycerides Arterial Blood Glucose Arterial Blood Ionized Calcium Urine Creatinine Coronavirus (PCR) 01/28/21 01/28/21 01/28/21 05:00 06:00 06:00 WBC RBC 3.59 L Hgb 11.6 L Hct 34.8 L MCV 97 H MCH MCHC RDW Lymph % (Auto) Lymph # (Auto) Seg Neutrophils % Seg Neuts % (Manual) 96.0 H Lymphocytes % (Manual) 3.0 L Seg Neutrophils # Man Lymphocytes # (Manual) 0.2 L D-Dimer ABG pH POC ABG pCO2 POC ABG pO2 ABG pO2 ABG Base Excess ABG Oxyhemoglobin ABG Sodium ABG Potassium ABG Chloride ABG Glucose Carboxyhemoglobin Sodium Potassium Chloride 111.9 H Carbon Dioxide BUN 59 H Creatinine 2.2 H Glucose 189 H POC Glucose 159 H Lactic Acid Calcium 8.1 L Magnesium Ferritin Total Bilirubin AST ALT Lactate Dehydrogenase C-Reactive Protein Albumin Triglycerides Arterial Blood Glucose Arterial Blood Ionized Calcium Urine Creatinine Coronavirus (PCR) 01/28/21 01/28/21 01/28/21 06:00 08:12 12:03 WBC RBC Hgb Hct MCV MCH MCHC RDW Lymph % (Auto) Lymph # (Auto) Seg Neutrophils % Seg Neuts % (Manual) Lymphocytes % (Manual) Seg Neutrophils # Man Lymphocytes # (Manual) D-Dimer ABG pH POC ABG pCO2 POC ABG pO2 ABG pO2 ABG Base Excess ABG Oxyhemoglobin ABG Sodium ABG Potassium ABG Chloride ABG Glucose Carboxyhemoglobin Sodium Potassium Chloride Carbon Dioxide BUN Creatinine Glucose POC Glucose 181 H 164 H Lactic Acid Calcium Magnesium 3.20 H Ferritin Total Bilirubin AST ALT Lactate Dehydrogenase C-Reactive Protein Albumin Triglycerides Arterial Blood Glucose Arterial Blood Ionized Calcium Urine Creatinine Coronavirus (PCR) 01/28/21 01/28/21 01/29/21 16:43 23:51 05:00 WBC RBC Hgb Hct MCV MCH MCHC RDW Lymph % (Auto) Lymph # (Auto) Seg Neutrophils % Seg Neuts % (Manual) Lymphocytes % (Manual) Seg Neutrophils # Man Lymphocytes # (Manual) D-Dimer ABG pH 7.119 L POC ABG pCO2 87.1 H POC ABG pO2 ABG pO2 ABG Base Excess ABG Oxyhemoglobin ABG Sodium 152.5 H ABG Potassium 5.7 H ABG Chloride 120.0 H ABG Glucose 217 H Carboxyhemoglobin Sodium Potassium Chloride Carbon Dioxide BUN Creatinine Glucose POC Glucose 198 H 196 H Lactic Acid Calcium Magnesium Ferritin Total Bilirubin AST ALT Lactate Dehydrogenase C-Reactive Protein Albumin Triglycerides Arterial Blood Glucose 217 H Arterial Blood Ionized Calcium Urine Creatinine Coronavirus (PCR) 01/29/21 01/29/21 01/29/21 05:23 06:00 Unknown WBC RBC Hgb Hct MCV 101 H MCH MCHC RDW 15.7 H Lymph % (Auto) Lymph # (Auto) Seg Neutrophils % Seg Neuts % (Manual) 95.0 H Lymphocytes % (Manual) 3.0 L Seg Neutrophils # Man 8.0 H Lymphocytes # (Manual) 0.3 L D-Dimer ABG pH POC ABG pCO2 POC ABG pO2 ABG pO2 ABG Base Excess ABG Oxyhemoglobin ABG Sodium ABG Potassium ABG Chloride ABG Glucose Carboxyhemoglobin Sodium 151 H Potassium 5.9 H D Chloride 117.8 H Carbon Dioxide BUN 54 H Creatinine 2.2 H Glucose 208 H POC Glucose 180 H Lactic Acid Calcium 7.9 L Magnesium Ferritin Total Bilirubin AST ALT Lactate Dehydrogenase C-Reactive Protein Albumin Triglycerides Arterial Blood Glucose Arterial Blood Ionized Calcium Urine Creatinine Coronavirus (PCR)
[2021-01-29] MEDS: ENOXAPARIN 120 MG/0.8 ML INJ SUB-Q SCH (09:35)
[2021-01-29] MEDS ORDERED: CALCIUM GLUCONATE 1,000 MG in SODIUM CHLORIDE 0.9% 100 ML IV ONE ×2 (10:00→13:30)
--- NOTE | 2021-01-29 11:52 | Progress Note ---
<BRENDA MORALES - Last Filed: 01/29/21 11:52> Assessment and Plan Assessment and plan: -Infectious disease, CCM, nephrology consulted -Continue contact/droplet precautions -Steroid therapy, remdesivir -S/p antibiotic therapy -SSI -Tube feeding -Trend BMP -Resume home antihypertensive regimen when appropriate -Full dose Lovenox -Continue paralytic and sedation DVT/GI prophylaxis: SCDs to bilateral lower extremities while in bed, heparin subcu, PPI Dispo: ICU The high probability of a clinically significant, sudden or life threatening deterioration of the [multi] system(s) required my full and direct attention, intervention and personal management. The aggregate critical care time was [32] minutes. This time is in addition to time spent performing reported procedures but includes the following: [x] Data Review and interpretation [x] Patient assessment and monitoring of vital signs [x] Documentation [x] Medication orders and management History Interval history: This is a 60-year-old male with diabetes mellitus, hypertension, hyperlipidemia, chronic renal insufficiency presents to the emergency department on 01/23 with shortness of breath, fevers chills, loss of smell and taste and body aches for the past 3 days via EMS. Per EMS patient's oxygen saturation on room air was 50% and after being placed on nonrebreather it increased 75%. Upon arrival to the emergency department patient was being bagged by EMS. In the emergency room patient was intubated due to severe hypoxia, increased work of breathing and lethargy. Patient was sedated on propofol and fentanyl. Patient presented with fever, tachycardia, tachypnea and acute hypoxic respiratory failure with PNA on CXR meeting Sepsis criteria. Lab work in the emergency department revealed hypo natremia, hypokalemia, hypochloremia, elevated CR/BUN and CXR showed bilateral pneumonia. Patient was admitted to the hospital service as a COVID-19 PUI with consults to infectious disease, nephrology and critical care medicine. Sepsis COVID-19 pneumonia Bilateral pneumonia Acute hypoxic respiratory failure Acute kidney injury Hyperchloremia Hyperkalemia Diabetes mellitus Hypertension Hyperlipidemia Hyperlipidemia Chronic renal insufficiency Elevated D-dimer 01/24/2021: Patient is intubated and sedated, patient is positive for COVID-19 infection. ID was consulted and put on dexamethasone and remdesivir. Patient has DEIIS and nephrology is following. Creatinine stable, patient is urinating. Discussed with nephrology and he is okay with remdesivir. Pulmonary critical care is following for his vent setting. PEEP of 8 and FiO2 of 85%. Patient was alert and off sedatives. 01/25/2021; patient is intubated and on mechanical ventilation. Continue with treatment of Covid. Nephrology and ID is following. Pulmonary is following for vent management 01/26: Remains on mechanical ventilation and [facility] increased his PEEP. [facility] has ordered Precedex for sedation. Possibly need to prone this p.m. No acute events reported overnight. This morning his D-dimer is greater than 10,000 and we have started him on Lovenox 120 mg daily. Nutrition has been consulted for initiation of tube feedings. Patient remains sedated on propofol 40 and fentanyl for the time my examination this morning. 01/27: Continue Lovenox, remdesivir and empiric antibiotics. Patient had a T-max of 101 overnight. The time of examination patient is on CMV 500/18/14/0.61. Kidney function slightly worsened. Sedated on fentanyl ground-level fall and Precedex. Nephrology has increased IV fluids to 100 ml/hr. Continue to trend BMP and CBC. Sedation vacation attempt by RN this AM. 01/28: Patient completed antibiotics today [facility] will paralyze patient and increase sedation. PICC line ordered for possible vasopressor therapy need. Patient's D-dimer remains greater than 10,000 and he still has hyperchloremia. Patient's kidney function has improved today. May need to prone the patient if no improvement in oxygenation is noted in the next 24 hours. The time of my examination patient is sedated with propofol, fentanyl and Precedex and is on assist control 500/18/16/0.80 hypoxic on ABG on 60% FiO2. 01/29: Patient was started on Nimbex yesterday and his ABG this morning showed respiratory acidosis with hypercapnia and his respiratory rate was increased. We will obtain a repeat ABG this afternoon. This morning patient is hypernatremic, hyperkalemic and hyperchloremic. His potassium has been correcte d with the management and will obtain repeat BMP tomorrow. His kidney functions have remained stable and we will await nephrology's input. No acute events reported overnight. This morning the time my examination patient sedated with propofol, Precedex and fentanyl and paralyzed with Nimbex. He is on assist control 0.80. Hospitalist Physical - Constitutional Vitals: Temp Pulse Resp BP Pulse Ox 99 F 72 24 113/61 92 01/29/21 08:00 01/29/21 11:24 01/29/21 08:45 01/29/21 11:24 01/29/21 11:24 General appearance: Present: no acute distress - Neck Neck: Absent: carotid bruits - Respiratory Respiratory effort: normal - Cardiovascular Rhythm: regular Heart Sounds: Present: S1 & S2. Absent: systolic murmur, diastolic murmur - Extremities Extremities: no ischemia, pulses intact, pulses symmetrical, No edema, normal temperature, normal color Peripheral Pulses: within normal limits - Abdominal General gastrointestinal: soft, non-tender, non-distended - Integumentary Integumentary: Present: warm, dry - Psychiatric Psychiatric: other (Sedated and paralyzed) - Neurologic Neurologic: other (Sedated and paralyzed) HEART Score - HEART Score Risk factors: 1-2 risk factors Troponin: < normal limit - Critical Actions Critical Actions: 0-3 pts:0.9-1.7%risk of adverse cardiac event.Candidate for discharge Results - Labs CBC & Chem 7: 01/29/21 Unknown 01/29/21 06:00 Labs: Laboratory Last Values WBC 8.4 K/mm3 (4.5-11.0) 01/29/21 Unknown RBC 3.69 M/mm3 (3.65-5.03) 01/29/21 Unknown Hgb 11.9 gm/dl (11.8-15.2) 01/29/21 Unknown Hct 37.1 % (35.5-45.6) 01/29/21 Unknown MCV 101 fl (84-94) H 01/29/21 Unknown MCH 32 pg (28-32) 01/29/21 Unknown MCHC 32 % (32-34) 01/29/21 Unknown RDW 15.7 % (13.2-15.2) H 01/29/21 Unknown Plt Count 378 K/mm3 (140-440) 01/29/21 Unknown Lymph % (Auto) 6.6 % (13.4-35.0) L 01/22/21 22:57 [place] % (Auto) 5.5 % (0.0-7.3) 01/22/21 22:57 Eos % (Auto) 0.0 % (0.0-4.3) 01/22/21 22:57 Baso % (Auto) 0.3 % (0.0-1.8) 01/22/21 22:57 Lymph # (Auto) 0.5 K/mm3 (1.2-5.4) L 01/22/21 22:57 [place] # (Auto) 0.4 K/mm3 (0.0-0.8) 01/22/21 22:57 Eos # (Auto) 0.0 K/mm3 (0.0-0.4) 01/22/21 22:57 Baso # (Auto) 0.0 K/mm3 (0.0-0.1) 01/22/21 22:57 Add Manual Diff Complete 01/29/21 Unknown Total Counted 100 01/29/21 Unknown Seg Neutrophils % Blanket Winder Operator 01/29/21 Unknown Seg Neuts % (Manual) 95.0 % (40.0-70.0) H 01/29/21 Unknown Band Neutrophils % 1.0 % 01/27/21 05:29 Lymphocytes % (Manual) 3.0 % (13.4-35.0) L 01/29/21 Unknown Reactive Lymphs % (Man) 1.0 % 01/27/21 05:29 Monocytes % (Manual) 2.0 % (0.0-7.3) 01/29/21 Unknown Eosinophils % (Manual) 2.0 % (0.0-4.3) 01/24/21 05:05 Nucleated RBC % Not Reportable 01/29/21 Unknown Seg Neutrophils # 6.8 K/mm3 (1.8-7.7) 01/22/21 22:57 Seg Neutrophils # Man 8.0 K/mm3 (1.8-7.7) H 01/29/21 Unknown Band Neutrophils # 0.0 K/mm3 01/29/21 Unknown Lymphocytes # (Manual) 0.3 K/mm3 (1.2-5.4) L 01/29/21 Unknown Abs React Lymphs (Man) 0.0 K/mm3 01/29/21 Unknown Monocytes # (Manual) 0.2 K/mm3 (0.0-0.8) 01/29/21 Unknown Eosinophils # (Manual) 0.0 K/mm3 (0.0-0.4) 01/29/21 Unknown Basophils # (Manual) 0.0 K/mm3 (0.0-0.1) 01/29/21 Unknown Metamyelocytes # 0.0 K/mm3 01/29/21 Unknown Myelocytes # 0.0 K/mm3 01/29/21 Unknown Promyelocytes # 0.0 K/mm3 01/29/21 Unknown Blast Cells # 0.0 K/mm3 01/29/21 Unknown WBC Morphology Not Reportable 01/29/21 Unknown Hypersegmented Neuts Not Reportable 01/29/21 Unknown Hyposegmented Neuts Not Reportable 01/29/21 Unknown Hypogranular Neuts Not Reportable 01/29/21 Unknown Smudge Cells Not Reportable 01/29/21 Unknown Toxic Granulation Not Reportable 01/29/21 Unknown Toxic Vacuolation Not Reportable 01/29/21 Unknown Dohle Bodies Not Reportable 01/29/21 Unknown Pelger-Huet Anomaly Not Reportable 01/29/21 Unknown Fátima Rods Not Reportable 01/29/21 Unknown Platelet Estimate Consistent w auto 01/29/21 Unknown Clumped Platelets Not Reportable 01/29/21 Unknown Plt Clumps, EDTA Not Reportable 01/29/21 Unknown Large Platelets Not Reportable 01/29/21 Unknown Giant Platelets Not Reportable 01/29/21 Unknown Platelet Satelliting Not Reportable 01/29/21 Unknown Plt Morphology Comment Not Reportable 01/29/21 Unknown RBC Morphology Normal 01/29/21 Unknown Dimorphic RBCs Not Reportable 01/29/21 Unknown Polychromasia Not Reportable 01/29/21 Unknown Hypochromasia Not Reportable 01/29/21 Unknown Poikilocytosis Not Reportable 01/29/21 Unknown Anisocytosis Not Reportable 01/29/21 Unknown Microcytosis Not Reportable 01/29/21 Unknown Macrocytosis Not Reportable 01/29/21 Unknown Spherocytes Not Reportable 01/29/21 Unknown Pappenheimer Bodies Not Reportable 01/29/21 Unknown Sickle Cells Not Reportable 01/29/21 Unknown Target Cells Not Reportable 01/29/21 Unknown Tear Drop Cells Not Reportable 01/29/21 Unknown Ovalocytes Not Reportable 01/29/21 Unknown Helmet Cells Not Reportable 01/29/21 Unknown Potter-Marcellus Bodies Not Reportable 01/29/21 Unknown [place] Rings Not Reportable 01/29/21 Unknown Ludmila Cells Not Reportable 01/29/21 Unknown Bite Cells Not Reportable 01/29/21 Unknown Crenated Cell Not Reportable 01/29/21 Unknown Elliptocytes Not Reportable 01/29/21 Unknown Acanthocytes (Spur) Not Reportable 01/29/21 Unknown Rouleaux Not Reportable 01/29/21 Unknown Hemoglobin C Crystals Not Reportable 01/29/21 Unknown Schistocytes Not Reportable 01/29/21 Unknown Malaria parasites Not Reportable 01/29/21 Unknown Aquiles Bodies Not Reportable 01/29/21 Unknown Hem Pathologist Commnt No 01/29/21 Unknown D-Dimer > 67132 ng/mlDDU (0-234) H 01/28/21 04:00 ABG pH 7.119 (7.320-7.450) L 01/29/21 05:00 POC ABG pCO2 87.1 mmHg (32.0-48.0) H 01/29/21 05:00 ABG pCO2 39.5 mm Hg 01/23/21 Unknown POC ABG pO2 87.8 mmHg (83-108) 01/29/21 05:00 ABG pO2 165.4 mm Hg (80.0-90.0) H 01/23/21 Unknown POC ABG HCO3 27.6 01/29/21 05:00 ABG HCO3 22.4 mmol/L (20.0-26.0) 01/23/21 Unknown ABG O2 Saturation 94.9 (0-100) 01/29/21 05:00 ABG O2 Content 19.6 (0.0-44) 01/23/21 Unknown POC ABG Base Excess -3.7 01/29/21 05:00 ABG Base Excess -2.5 mmol/L (-2.0-3.0) L 01/23/21 Unknown ABG Hemoglobin 12.7 (12.0-17.5) 01/29/21 05:00 ABG Oxyhemoglobin 94.1 (94-98) 01/29/21 05:00 ABG Carboxyhemoglobin 1.7 % (0.0-5.0) 01/23/21 Unknown ABG Methemoglobin 0.1 (0.0-1.5) 01/29/21 05:00 ABG Sodium 152.5 mmol/L (136.0-145.0) H 01/29/21 05:00 ABG Potassium 5.7 mmol/L (3.40-4.50) H 01/29/21 05:00 ABG Chloride 120.0 mmol/L (98-107) H 01/29/21 05:00 ABG Glucose 217 mg/dL (65-95) H 01/29/21 05:00 Oxyhemoglobin 96.8 % (95.0-99.0) 01/23/21 Unknown Carboxyhemoglobin 0.7 (0.5-1.5) 01/29/21 05:00 FiO2 100 % 01/23/21 Unknown FiO2 % 90.0 01/29/21 05:00 Sodium 151 mmol/L (137-145) H 01/29/21 06:00 Potassium 5.9 mmol/L (3.6-5.0) H D 01/29/21 06:00 Chloride 117.8 mmol/L (98-107) H 01/29/21 06:00 Carbon Dioxide 29 mmol/L (22-30) 01/29/21 06:00 Anion Gap 10 mmol/L 01/29/21 06:00 BUN 54 mg/dL (9-20) H 01/29/21 06:00 Creatinine 2.2 mg/dL (0.8-1.3) H 01/29/21 06:00 Estimated GFR 37 ml/min 01/29/21 06:00 BUN/Creatinine Ratio 25 % 01/29/21 06:00 Glucose 208 mg/dL (75-100) H 01/29/21 06:00 POC Glucose 180 mg/dL (70-105) H 01/29/21 05:23 Lactic Acid 1.90 mmol/L (0.7-2.0) 01/24/21 14:38 Calcium 7.9 mg/dL (8.4-10.2) L 01/29/21 06:00 Magnesium 3.20 mg/dL (1.7-2.3) H 01/28/21 06:00 Ferritin 798.0 ng/mL (30.0-300.0) H 01/28/21 04:00 Total Bilirubin 1.50 mg/dL (0.1-1.2) H 01/26/21 05:47 AST 37 units/L (5-40) 01/26/21 05:47 ALT 29 units/L (7-56) 01/26/21 05:47 Alkaline Phosphatase 70 units/L (35-129) 01/26/21 05:47 Lactate Dehydrogenase 679 units/L (91-180) H 01/28/21 04:00 C-Reactive Protein 17.10 mg/dL (0.00-1.30) H 01/28/21 04:00 Total Protein 7.2 g/dL (6.3-8.2) 01/26/21 05:47 Albumin 2.2 g/dL (3.9-5) L 01/26/21 05:47 Albumin/Globulin Ratio 0.4 % 01/26/21 05:47 Triglycerides 160 mg/dL (2-149) H 01/27/21 05:29 Procalcitonin 0.92 ng/mL (<0.15) 01/22/21 22:57 Arterial Blood Glucose 217 mg/dL (65-95) H 01/29/21 05:00 Arterial Blood Ionized Calcium 4.9 mg/dL (4.6-5.3) 01/29/21 05:00 Urine Color Nehal (Yellow) 01/22/21 22:39 Urine Turbidity Cloudy (Clear) 01/22/21 22:39 Urine pH 5.0 (5.0-7.0) 01/22/21 22:39 Ur Specific [place] 1.017 (1.003-1.030) 01/22/21 22:39 Urine Protein 100 mg/dl mg/dL (Negative) 01/22/21 22:39 Urine Glucose (UA) Neg mg/dL (Negative) 01/22/21 22:39 Urine Ketones Neg mg/dL (Negative) 01/22/21 22:39 Urine Blood Mod (Negative) 01/22/21 22:39 Urine Nitrite Neg (Negative) 01/22/21 22:39 Urine Bilirubin Neg (Negative) 01/22/21 22:39 Urine Urobilinogen 2.0 mg/dL (<2.0) 01/22/21 22:39 Ur Leukocyte Esterase Mod (Negative) 01/22/21 22:39 Urine WBC (Auto) < 1.0 /HPF (0.0-6.0) 01/22/21 22:39 Urine RBC (Auto) < 1.0 /HPF (0.0-6.0) 01/22/21 22:39 U Epithel Cells (Auto) < 1.0 /HPF (0-13.0) 01/22/21 22:39 Urine Creatinine 301.2 mg/dL (0.1-20.0) H 01/22/21 22:39 Urine Sodium 28 mmol/L 01/22/21 22:39 Coronavirus (PCR) Positive (Negative) A 01/23/21 08:41 Black/IV: Voiding Method Indwelling Catheter Active Medications - Current Medications Current Medications: Generic Name Dose Route Start Last Admin Trade Name Freq PRN Reason Stop Dose Admin Acetaminophen 650 mg 01/23/21 02:25 Acetaminophen 650 Mg Rect Supp NM Q4H PRN Pain, Mild (1-3) Acetaminophen 650 mg 01/24/21 12:58 01/27/21 04:25 Acetaminophen 325 Mg/10.15 Ml Oral Liqd Unit Dose FEEDTUBE 650 mg Q6H PRN Administration Pain, Mild (1-3) Lipase/Protease/Amylase 1 each 01/26/21 14:25 Lipase 10,500/Protease 25,000/Amylase 43,750 (Units) Dr Claudio FEEDTUBE PRN PRN For Clogged Feeding Tube Dexamethasone 6 mg 01/23/21 22:00 01/29/21 09:11 Dexamethasone 4 Mg/Ml Vial IV 02/01/21 22:01 6 mg BID CECE Administration Dextrose 50 ml 01/27/21 07:24 Dextrose 50% In Water (25gm) 50 Ml Syringe IV Q30MIN PRN Hypoglycemia Protocol Enoxaparin Sodium 120 mg 01/26/21 11:00 01/29/21 09:35 Enoxaparin 120 Mg/0.8 Ml Inj SUB-Q 120 mg Q24HR CECE Administration Famotidine 20 mg 01/24/21 10:00 01/29/21 09:15 Famotidine 20 Mg/2 Ml Inj IV 20 mg DAILY CECE Administration Fentanyl 50 mcg 01/22/21 22:39 Fentanyl 100 Mcg/2 Ml Inj IV Q10MIN PRN ANALGESIA Hydrophilic Ointment 1 applic 01/22/21 22:39 Lip Therapy Vaseline TP Q2HR PRN Dry Lips Fentanyl Citrate 2,000 mcg in 100 mls @ 6.124 mls/hr 01/22/21 23:00 01/29/21 06:44 Fentanyl Drip Premix IV 3 mcg/kg/hr TITR CECE 18.371 mls/hr Administration Protocol 1 MCG/KG/HR Propofol 1,000 mg in 100 mls @ 3.674 mls/hr 01/22/21 23:45 01/29/21 09:10 Diprivan 10 Mg/Ml IV 50 mcg/kg/min TITR CECE 36.741 mls/hr Administration Protocol 5 MCG/KG/MIN Sodium Chloride 1,000 mls @ 100 mls/hr 01/23/21 08:00 01/29/21 09:33 Nacl 0.9% 1000 Ml IV 50 mls/hr DIRECT CECE Infusion Dexmedetomidine HCl 400 mcg/ 104 mls @ 6.368 mls/hr 01/26/21 11:00 01/29/21 09:12 Sodium Chloride IV 1 mcg/kg/hr TITRATE CECE 31.842 mls/hr Administration Protocol 0.2 MCG/KG/HR REMDESIVIR 100 mg/ Sodium 250 mls @ 500 mls/hr 01/28/21 21:00 01/28/21 20:51 Chloride IV 01/29/21 21:29 500 mls/hr Q24HR@2100 CECE Administration Norepinephrine 4 mg in 250 mls @ 7.5 mls/hr 01/28/21 14:00 Levophed Drip 4 Mg/Ns 250 Ml IV TITR CECE Protocol 2 MCG/MIN Cisatracurium Besylate 40 mg/ 400 mls @ 73.482 mls/hr 01/28/21 14:00 01/29/21 08:05 Sodium Chloride IV 01/30/21 13:59 1 mcg/kg/min TITR CECE 73.482 mls/hr Administration Protocol 1 MCG/KG/MIN Insulin Human Regular 0 units 01/27/21 12:00 01/29/21 06:44 Insulin Regular, Human 100 Units/1 Ml SUB-Q 2 units Q6H CECE Administration Protocol Multi-Ingred Cream/Lotion/Oil/Oint 1 applic 01/22/21 22:39 Mineral Oil/Petrolatum, White Ophth Oint 3.5 Gm OU Q4HR PRN Dry Eye(s) Multi-Ingred Cream/Lotion/Oil/Oint 1 applic 01/28/21 16:00 01/29/21 09:14 Mineral Oil/Petrolatum, White Ophth Oint 3.5 Gm OU 01/30/21 10:01 1 applic Q6H CECE Administration Ondansetron HCl 4 mg 01/23/21 02:17 Ondansetron 4 Mg/2 Ml Inj IV Q8H PRN Nausea And Vomiting Simple Syrup 15 ml 01/26/21 14:25 Simple Syrup 15 Ml FEEDTUBE PRN PRN Hypoglycemia Simple Syrup 30 ml 01/26/21 14:25 Simple Syrup 15 Ml FEEDTUBE PRN PRN Hypoglycemia Sodium Bicarbonate 325 mg 01/26/21 14:25 Sodium Bicarbonate 325 Mg Tab FEEDTUBE PRN PRN For Clogged Feeding Tube Nutrition/Malnutrition Assess - Dietary Evaluation Nutrition/Malnutrition Findings: Nutrition Notes Start: 01/26/21 13:59 Freq: Status: Active Protocol: Document 01/29/21 10:36 CW (Rec: 01/29/21 10:59 CW [email or web address]) Nutrition Notes Initial or Follow up Reassessment Current Diagnosis Acute Kidney Injury,Diabetes, Sepsis,Hypertension, Respiratory Failure, Hyperlipidemia Other Pertinent Diagnosis COVID-19 (+), bilat pneu Current Diet TF - Nepro at 30 ml/hr Labs/Tests Na 151 K 5.9 BUN 54 Cr 2.2 BG 208 Pertinent Medications NS 50 ml/hr Decadron Propofol at 36.741 ml/hr (970 kcal) Humulin Height 5 ft 8 in Weight 122.[address] Body Weight (kg) 70.00 BMI 41.0 Weight Status Morbidly Obese Subjective/Other Information F/U for proning, vent status, propofol/adjust TF rate, wt. Pt remains on mechanical vent. Propofol increased further. Will hold off on adjusting TF for now. Currently running at 40ml/hr. Informed RN of TF change. Percent of energy/protein needs met: 142%/ 101% Burn Absent Trauma Absent GI Symptoms None Difficulty In Swallowing Skin Integrity/Comment Intact Current % PO Negligible Minimum of two criteria No Reduced [employer] Strength Measurably Reduced (severe) #1 Nutrition Diagnosis Inadequate oral intake Diagnosis Progress(for reassessment Continues documentation) Is patient on ventilator? Yes Is Patient Ambulatory and/or Out of Bed No REE-([place]-confined to bed) 2403.528 Kcal/Kg value to use for calculation 15 Approximate Energy Requirements Using 1837 kcal/Kg Calculation Used for Recommendations Kcal/kg Additional Notes Pro needs 0.8-1.2g/kg adjBW: 77-115g/day Fluid needs per MD Nutrition Intervention Change Diet Order: TF Nutrition Support: Continuous TF: Nepro at 30ml/ hr with 150ml water flush q4h. (Propofol providing 970 kcal) When proning: Proned position: Nepro at 20ml /hr x 12 hr with 100ml water flush q4h. Supine position: Nepro at 50ml /hr x 12hr with 200ml water flush q4h Kcal 1,296 Protein (gm) 58 Fluid (mL) 523 Goal #1 TF tolerance Goal #2 TF to meet at least 75% energy and pro needs Anticipated Discharge Needs: unable to determine at this time Follow-Up By: 02/02/21 Additional Comments F/U for proning, propofol, vent status, wt <MONO SILVA E - Last Filed: 01/30/21 16:16> Assessment and Plan Assessment and plan: I saw and evaluated the patient. I agree with the findings and the plan of care as documented in the Nurse Practitioner's~note, with the following corrections and additions. Hospitalist Physical - Constitutional Vitals: Temp Pulse Resp BP Pulse Ox 99.1 F 89 23 141/76 92 01/30/21 12:00 01/30/21 14:30 01/30/21 14:30 01/30/21 14:30 01/30/21 14:30 Results - Labs CBC & Chem 7: 01/30/21 05:00 01/30/21 06:00 Labs: Laboratory Last Values WBC 8.9 K/mm3 (4.5-11.0) 01/30/21 05:00 RBC 3.57 M/mm3 (3.65-5.03) L 01/30/21 05:00 Hgb 11.3 gm/dl (11.8-15.2) L 01/30/21 05:00 Hct 35.4 % (35.5-45.6) L 01/30/21 05:00 MCV 99 fl (84-94) H 01/30/21 05:00 MCH 32 pg (28-32) 01/30/21 05:00 MCHC 32 % (32-34) 01/30/21 05:00 RDW 15.6 % (13.2-15.2) H 01/30/21 05:00 Plt Count 384 K/mm3 (140-440) 01/30/21 05:00 Lymph % (Auto) 6.6 % (13.4-35.0) L 01/22/21 22:57 [place] % (Auto) 5.5 % (0.0-7.3) 01/22/21 22:57 Eos % (Auto) 0.0 % (0.0-4.3) 01/22/21 22:57 Baso % (Auto) 0.3 % (0.0-1.8) 01/22/21 22:57 Lymph # (Auto) 0.5 K/mm3 (1.2-5.4) L 01/22/21 22:57 [place] # (Auto) 0.4 K/mm3 (0.0-0.8) 01/22/21 22:57 Eos # (Auto) 0.0 K/mm3 (0.0-0.4) 01/22/21 22:57 Baso # (Auto) 0.0 K/mm3 (0.0-0.1) 01/22/21 22:57 Add Manual Diff Complete 01/30/21 05:00 Total Counted 100 01/30/21 05:00 Seg Neutrophils % Blanket Winder Operator 01/30/21 05:00 Seg Neuts % (Manual) 97.0 % (40.0-70.0) H 01/30/21 05:00 Band Neutrophils % 1.0 % 01/27/21 05:29 Lymphocytes % (Manual) 1.0 % (13.4-35.0) L 01/30/21 05:00 Reactive Lymphs % (Man) 1.0 % 01/27/21 05:29 Monocytes % (Manual) 2.0 % (0.0-7.3) 01/30/21 05:00 Eosinophils % (Manual) 2.0 % (0.0-4.3) 01/24/21 05:05 Nucleated RBC % Not Reportable 01/30/21 05:00 Seg Neutrophils # 6.8 K/mm3 (1.8-7.7) 01/22/21 22:57 Seg Neutrophils # Man 8.6 K/mm3 (1.8-7.7) H 01/30/21 05:00 Band Neutrophils # 0.0 K/mm3 01/30/21 05:00 Lymphocytes # (Manual) 0.1 K/mm3 (1.2-5.4) L 01/30/21 05:00 Abs React Lymphs (Man) 0.0 K/mm3 01/30/21 05:00 Monocytes # (Manual) 0.2 K/mm3 (0.0-0.8) 01/30/21 05:00 Eosinophils # (Manual) 0.0 K/mm3 (0.0-0.4) 01/30/21 05:00 Basophils # (Manual) 0.0 K/mm3 (0.0-0.1) 01/30/21 05:00 Metamyelocytes # 0.0 K/mm3 01/30/21 05:00 Myelocytes # 0.0 K/mm3 01/30/21 05:00 Promyelocytes # 0.0 K/mm3 01/30/21 05:00 Blast Cells # 0.0 K/mm3 01/30/21 05:00 WBC Morphology Not Reportable 01/30/21 05:00 Hypersegmented Neuts Not Reportable 01/30/21 05:00 Hyposegmented Neuts Not Reportable 01/30/21 05:00 Hypogranular Neuts Not Reportable 01/30/21 05:00 Smudge Cells Not Reportable 01/30/21 05:00 Toxic Granulation Not Reportable 01/30/21 05:00 Toxic Vacuolation Not Reportable 01/30/21 05:00 Dohle Bodies Not Reportable 01/30/21 05:00 Pelger-Huet Anomaly Not Reportable 01/30/21 05:00 Fátima Rods Not Reportable 01/30/21 05:00 Platelet Estimate Consistent w auto 01/30/21 05:00 Clumped Platelets Not Reportable 01/30/21 05:00 Plt Clumps, EDTA Not Reportable 01/30/21 05:00 Large Platelets Not Reportable 01/30/21 05:00 Giant Platelets Not Reportable 01/30/21 05:00 Platelet Satelliting Not Reportable 01/30/21 05:00 Plt Morphology Comment Not Reportable 01/30/21 05:00 RBC Morphology Not Reportable 01/30/21 05:00 Dimorphic RBCs Not Reportable 01/30/21 05:00 Polychromasia Not Reportable 01/30/21 05:00 Hypochromasia Not Reportable 01/30/21 05:00 Poikilocytosis Not Reportable 01/30/21 05:00 Anisocytosis Not Reportable 01/30/21 05:00 Microcytosis Not Reportable 01/30/21 05:00 Macrocytosis Not Reportable 01/30/21 05:00 Spherocytes Not Reportable 01/30/21 05:00 Pappenheimer Bodies Not Reportable 01/30/21 05:00 Sickle Cells Not Reportable 01/30/21 05:00 Target Cells Not Reportable 01/30/21 05:00 Tear Drop Cells Not Reportable 01/30/21 05:00 Ovalocytes Not Reportable 01/30/21 05:00 Helmet Cells Not Reportable 01/30/21 05:00 Potter-Marcellus Bodies Not Reportable 01/30/21 05:00 [place] Rings Not Reportable 01/30/21 05:00 Ludmila Cells Not Reportable 01/30/21 05:00 Bite Cells Not Reportable 01/30/21 05:00 Crenated Cell Not Reportable 01/30/21 05:00 Elliptocytes Not Reportable 01/30/21 05:00 Acanthocytes (Spur) Not Reportable 01/30/21 05:00 Rouleaux Not Reportable 01/30/21 05:00 Hemoglobin C Crystals Not Reportable 01/30/21 05:00 Schistocytes Not Reportable 01/30/21 05:00 Malaria parasites Not Reportable 01/30/21 05:00 Aquiles Bodies Not Reportable 01/30/21 05:00 Hem Pathologist Commnt No 01/30/21 05:00 D-Dimer > 99090 ng/mlDDU (0-234) H 01/30/21 04:00 ABG pH 7.235 (7.320-7.450) L 01/30/21 04:24 POC ABG pCO2 69.7 mmHg (32.0-48.0) H 01/30/21 04:24 ABG pCO2 39.5 mm Hg 01/23/21 Unknown POC ABG pO2 61.0 mmHg (83-108) L 01/30/21 04:24 ABG pO2 165.4 mm Hg (80.0-90.0) H 01/23/21 Unknown POC ABG HCO3 28.9 01/30/21 04:24 ABG HCO3 22.4 mmol/L (20.0-26.0) 01/23/21 Unknown ABG O2 Saturation 89.6 (0-100) 01/30/21 04:24 ABG O2 Content 19.6 (0.0-44) 01/23/21 Unknown POC ABG Base Excess 0 01/30/21 04:24 ABG Base Excess -2.5 mmol/L (-2.0-3.0) L 01/23/21 Unknown ABG Hemoglobin 12.0 (12.0-17.5) 01/30/21 04:24 ABG Oxyhemoglobin 89 (94-98) L 01/30/21 04:24 ABG Carboxyhemoglobin 1.7 % (0.0-5.0) 01/23/21 Unknown ABG Methemoglobin 0.1 (0.0-1.5) 01/30/21 04:24 ABG Sodium 154.2 mmol/L (136.0-145.0) H 01/30/21 04:24 ABG Potassium 5.4 mmol/L (3.40-4.50) H 01/30/21 04:24 ABG Chloride 121.0 mmol/L (98-107) H 01/30/21 04:24 ABG Glucose 247 mg/dL (65-95) H 01/30/21 04:24 Oxyhemoglobin 96.8 % (95.0-99.0) 01/23/21 Unknown Carboxyhemoglobin 0.6 (0.5-1.5) 01/30/21 04:24 FiO2 100 % 01/23/21 Unknown FiO2 % 80 01/30/21 04:24 Sodium 152 mmol/L (137-145) H 01/30/21 06:00 Potassium 5.3 mmol/L (3.6-5.0) H 01/30/21 06:00 Chloride 120.5 mmol/L (98-107) H 01/30/21 06:00 Carbon Dioxide 27 mmol/L (22-30) 01/30/21 06:00 Anion Gap 10 mmol/L 01/30/21 06:00 BUN 50 mg/dL (9-20) H 01/30/21 06:00 Creatinine 2.3 mg/dL (0.8-1.3) H 01/30/21 06:00 Estimated GFR 35 ml/min 01/30/21 06:00 BUN/Creatinine Ratio 22 % 01/30/21 06:00 Glucose 239 mg/dL (75-100) H 01/30/21 06:00 POC Glucose 153 mg/dL (70-105) H 01/30/21 11:28 Lactic Acid 1.90 mmol/L (0.7-2.0) 01/24/21 14:38 Calcium 8.2 mg/dL (8.4-10.2) L 01/30/21 06:00 Magnesium 2.60 mg/dL (1.7-2.3) H 01/30/21 06:00 Ferritin 763.9 ng/mL (30.0-300.0) H 01/30/21 04:00 Total Bilirubin 1.50 mg/dL (0.1-1.2) H 01/26/21 05:47 AST 37 units/L (5-40) 01/26/21 05:47 ALT 29 units/L (7-56) 01/26/21 05:47 Alkaline Phosphatase 70 units/L (35-129) 01/26/21 05:47 Lactate Dehydrogenase 424 units/L (91-180) H 01/30/21 04:00 C-Reactive Protein 23.90 mg/dL (0.00-1.30) H 01/30/21 04:00 Total Protein 7.2 g/dL (6.3-8.2) 01/26/21 05:47 Albumin 2.2 g/dL (3.9-5) L 01/26/21 05:47 Albumin/Globulin Ratio 0.4 % 01/26/21 05:47 Triglycerides 293 mg/dL (2-149) H 01/30/21 06:00 Procalcitonin 0.92 ng/mL (<0.15) 01/22/21 22:57 Arterial Blood Glucose 247 mg/dL (65-95) H 01/30/21 04:24 Arterial Blood Ionized Calcium 5.0 mg/dL (4.6-5.3) 01/30/21 04:24 Urine Color Nehal (Yellow) 01/22/21 22:39 Urine Turbidity Cloudy (Clear) 01/22/21 22:39 Urine pH 5.0 (5.0-7.0) 01/22/21 22:39 Ur Specific [place] 1.017 (1.003-1.030) 01/22/21 22:39 Urine Protein 100 mg/dl mg/dL (Negative) 01/22/21 22:39 Urine Glucose (UA) Neg mg/dL (Negative) 01/22/21 22:39 Urine Ketones Neg mg/dL (Negative) 01/22/21 22:39 Urine Blood Mod (Negative) 01/22/21 22:39 Urine Nitrite Neg (Negative) 01/22/21 22:39 Urine Bilirubin Neg (Negative) 01/22/21 22:39 Urine Urobilinogen 2.0 mg/dL (<2.0) 01/22/21 22:39 Ur Leukocyte Esterase Mod (Negative) 01/22/21 22:39 Urine WBC (Auto) < 1.0 /HPF (0.0-6.0) 01/22/21 22:39 Urine RBC (Auto) < 1.0 /HPF (0.0-6.0) 01/22/21 22:39 U Epithel Cells (Auto) < 1.0 /HPF (0-13.0) 01/22/21 22:39 Urine Osmolality 416 Mosm/kg 01/30/21 12:15 Urine Creatinine 301.2 mg/dL (0.1-20.0) H 01/22/21 22:39 Urine Sodium 28 mmol/L 01/22/21 22:39 Coronavirus (PCR) Positive (Negative) A 01/23/21 08:41 Black/IV: Voiding Method Indwelling Catheter Active Medications - Current Medications Current Medications: Generic Name Dose Route Start Last Admin Trade Name Freq PRN Reason Stop Dose Admin Acetaminophen 650 mg 01/23/21 02:25 Acetaminophen 650 Mg Rect Supp NM Q4H PRN Pain, Mild (1-3) Acetaminophen 650 mg 01/24/21 12:58 01/29/21 18:28 Acetaminophen 325 Mg/10.15 Ml Oral Liqd Unit Dose FEEDTUBE 650 mg Q6H PRN Administration Pain, Mild (1-3) Lipase/Protease/Amylase 1 each 01/26/21 14:25 Lipase 10,500/Protease 25,000/Amylase 43,750 (Units) Dr Cap FEEDTUBE PRN PRN For Clogged Feeding Tube Dexamethasone 6 mg 01/23/21 22:00 01/30/21 09:26 Dexamethasone 4 Mg/Ml Vial IV 02/01/21 22:01 6 mg BID CECE Administration Dextrose 50 ml 01/27/21 07:24 Dextrose 50% In Water (25gm) 50 Ml Syringe IV Q30MIN PRN Hypoglycemia Protocol Enoxaparin Sodium 120 mg 01/26/21 11:00 01/30/21 09:30 Enoxaparin 120 Mg/0.8 Ml Inj SUB-Q 120 mg Q24HR CECE Administration Famotidine 20 mg 01/24/21 10:00 01/30/21 09:26 Famotidine 20 Mg/2 Ml Inj IV 20 mg DAILY CECE Administration Fentanyl 50 mcg 01/22/21 22:39 Fentanyl 100 Mcg/2 Ml Inj IV Q10MIN PRN ANALGESIA Hydrophilic Ointment 1 applic 01/22/21 22:39 Lip Therapy Vaseline TP Q2HR PRN Dry Lips Fentanyl Citrate 2,000 mcg in 100 mls @ 6.124 mls/hr 01/22/21 23:00 01/30/21 09:27 Fentanyl Drip Premix IV 3 mcg/kg/hr TITR CECE 18.371 mls/hr Administration Protocol 1 MCG/KG/HR Propofol 1,000 mg in 100 mls @ 3.674 mls/hr 01/22/21 23:45 01/30/21 12:03 Diprivan 10 Mg/Ml IV 50 mcg/kg/min TITR CECE 36.741 mls/hr Administration Protocol 5 MCG/KG/MIN Dexmedetomidine HCl 400 mcg/ 104 mls @ 6.368 mls/hr 01/26/21 11:00 01/30/21 11:10 Sodium Chloride IV 1 mcg/kg/hr TITRATE CECE 31.842 mls/hr Administration Protocol 0.2 MCG/KG/HR Norepinephrine 4 mg in 250 mls @ 7.5 mls/hr 01/28/21 14:00 Levophed Drip 4 Mg/Ns 250 Ml IV TITR CECE Protocol 2 MCG/MIN Cefepime HCl 1 gm in 100 mls @ 200 mls/hr 01/30/21 11:30 Cefepime/Ns 1 Gm/100 Ml IV Q12HR CECE Protocol Cisatracurium Besylate 40 mg/ 400 mls @ 73.482 mls/hr 01/30/21 16:00 Sodium Chloride IV 02/01/21 15:59 TITR CECE Protocol 1 MCG/KG/MIN Multi-Ingred Cream/Lotion/Oil/Oint 1 applic 01/22/21 22:39 Mineral Oil/Petrolatum, White Ophth Oint 3.5 Gm OU Q4HR PRN Dry Eye(s) Ondansetron HCl 4 mg 01/23/21 02:17 Ondansetron 4 Mg/2 Ml Inj IV Q8H PRN Nausea And Vomiting Simple Syrup 15 ml 01/26/21 14:25 Simple Syrup 15 Ml FEEDTUBE PRN PRN Hypoglycemia Simple Syrup 30 ml 01/26/21 14:25 Simple Syrup 15 Ml FEEDTUBE PRN PRN Hypoglycemia Sodium Bicarbonate 325 mg 01/26/21 14:25 Sodium Bicarbonate 325 Mg Tab FEEDTUBE PRN PRN For Clogged Feeding Tube Nutrition/Malnutrition Assess - Dietary Evaluation Nutrition/Malnutrition Findings: Nutrition Notes Start: 01/26/21 13:59 Freq: Status: Active Protocol: Document 01/29/21 10:36 CW (Rec: 01/29/21 10:59 CW [id number]) Nutrition Notes Initial or Follow up Reassessment Current Diagnosis Acute Kidney Injury,Diabetes, Sepsis,Hypertension, Respiratory Failure, Hyperlipidemia Other Pertinent Diagnosis COVID-19 (+), bilat pneu Current Diet TF - Nepro at 30 ml/hr Labs/Tests Na 151 K 5.9 BUN 54 Cr 2.2 BG 208 Pertinent Medications NS 50 ml/hr Decadron Propofol at 36.741 ml/hr (970 kcal) Humulin Height 5 ft 8 in Weight [address] Body Weight (kg) 70.00 BMI 41.0 Weight Status Morbidly Obese Subjective/Other Information F/U for proning, vent status, propofol/adjust TF rate, wt. Pt remains on mechanical vent. Propofol increased further. Will hold off on adjusting TF for now. Currently running at 40ml/hr. Informed RN of TF change. Percent of energy/protein needs met: 142%/ 101% Burn Absent Trauma Absent GI Symptoms None Difficulty In Swallowing Skin Integrity/Comment Intact Current % PO Negligible Minimum of two criteria No Reduced [employer] Strength Measurably Reduced (severe) #1 Nutrition Diagnosis Inadequate oral intake Diagnosis Progress(for reassessment Continues documentation) Is patient on ventilator? Yes Is Patient Ambulatory and/or Out of Bed No REE-([facility]-confined to bed) 2403.528 Kcal/Kg value to use for calculation 15 Approximate Energy Requirements Using 1837 kcal/Kg Calculation Used for Recommendations Kcal/kg Additional Notes Pro needs 0.8-1.2g/kg adjBW: 77-115g/day Fluid needs per MD Nutrition Intervention Change Diet Order: TF Nutrition Support: Continuous TF: Nepro at 30ml/ hr with 150ml water flush q4h. (Propofol providing 970 kcal) When proning: Proned position: Nepro at 20ml /hr x 12 hr with 100ml water flush q4h. Supine position: Nepro at 50ml /hr x 12hr with 200ml water flush q4h Kcal 1,296 Protein (gm) 58 Fluid (mL) 523 Goal #1 TF tolerance Goal #2 TF to meet at least 75% energy and pro needs Anticipated Discharge Needs: unable to determine at this time Follow-Up By: 02/02/21 Additional Comments F/U for proning, propofol, vent status, wt
--- NOTE | 2021-01-29 12:06 | Progress Note ---
Assessment and Plan Cultures: Blood culture no growth today SARS CoV2 PCR positive 01/22/2021 respiratory culture: Usual respiratory dillon Assessment: 60 year old male with history of morbid obesity admitted on 01/22/2021 secondary to 3-day history of worsening shortness of breath associated with fever, chills, loss of smell and taste: #Severe sepsis: Present on admission with low-grade fever, tachycardia, hypoxia, hypotension, elevated lactate, DEISI. likely due to bilateral pneumonia. Urinalysis negative. Procalcitonin elevated in the setting of DEISI. #Critical COVID-19 pneumonia: Patient intubated. Chest x-ray with bilateral airspace disease. Inflammatory markers elevated. D-dimer 1173. CRP 30. S/P abx. #Acute respiratory failure: on vent. #Transaminitis: Likely secondary to COVID-19. #DEISI: creatinine stable but still elevated. Recommendations: -Continue steroids per pulmonary -Complete 5 days of remdesivir, limited literature, but reports suggest no significant issues with short courses in patients with renal disease -Monitor inflammatory markers -Anticoagulation per protocol -guarded prognosis Melida Byrne MD, FACP [facility] ([facility] O: [phone] F: [phone] Subjective Date of service: 01/29/21 Principal diagnosis: DEISI Interval history: No fever. Remains on the vent. Sedated, paralyzed. Objective - Exam Narrative Exam: Physical Exam (reviewed in chart to minimize risk of transmission) Constitutional: deferred Head, Ears, Nose: deferred Eyes: deferred Neck: deferred Oral: deferred Cardiovascular: deferred Respiratory: deferred GI: deferred Musculoskeletal: deferred Skin: deferred Hem/Lymphatic: deferred Psych: deferred Neurological: deferred - Constitutional Vitals: Vital Signs Temp Pulse Resp BP Pulse Ox 99 F 72 24 113/61 92 01/29/21 08:00 01/29/21 11:24 01/29/21 08:45 01/29/21 11:24 01/29/21 11:24 Temperature -Last 24 Hours Temperature 99 F Temperature 99.6 F Temperature 99.3 F - Labs CBC & Chem 7: 01/29/21 Unknown 01/29/21 06:00 Labs: Abnormal lab results 01/28/21 01/28/21 01/28/21 Range/Units 06:00 12:03 16:43 MCV (84-94) fl RDW (13.2-15.2) % Seg Neuts % (Manual) 96.0 H (40.0-70.0) % Lymphocytes % (Manual) 3.0 L (13.4-35.0) % Seg Neutrophils # Man (1.8-7.7) K/mm3 Lymphocytes # (Manual) 0.2 L (1.2-5.4) K/mm3 ABG pH (7.320-7.450) POC ABG pCO2 (32.0-48.0) mmHg ABG Sodium (136.0-145.0) mmol/L ABG Potassium (3.40-4.50) mmol/L ABG Chloride (98-107) mmol/L ABG Glucose (65-95) mg/dL Sodium (137-145) mmol/L Potassium (3.6-5.0) mmol/L Chloride (98-107) mmol/L BUN (9-20) mg/dL Creatinine (0.8-1.3) mg/dL Glucose (75-100) mg/dL POC Glucose 164 H 198 H (70-105) mg/dL Calcium (8.4-10.2) mg/dL Arterial Blood Glucose (65-95) mg/dL 01/28/21 01/29/21 01/29/21 Range/Units 23:51 05:00 05:23 MCV (84-94) fl RDW (13.2-15.2) % Seg Neuts % (Manual) (40.0-70.0) % Lymphocytes % (Manual) (13.4-35.0) % Seg Neutrophils # Man (1.8-7.7) K/mm3 Lymphocytes # (Manual) (1.2-5.4) K/mm3 ABG pH 7.119 L (7.320-7.450) POC ABG pCO2 87.1 H (32.0-48.0) mmHg ABG Sodium 152.5 H (136.0-145.0) mmol/L ABG Potassium 5.7 H (3.40-4.50) mmol/L ABG Chloride 120.0 H (98-107) mmol/L ABG Glucose 217 H (65-95) mg/dL Sodium (137-145) mmol/L Potassium (3.6-5.0) mmol/L Chloride (98-107) mmol/L BUN (9-20) mg/dL Creatinine (0.8-1.3) mg/dL Glucose (75-100) mg/dL POC Glucose 196 H 180 H (70-105) mg/dL Calcium (8.4-10.2) mg/dL Arterial Blood Glucose 217 H (65-95) mg/dL 01/29/21 01/29/21 Range/Units 06:00 Unknown MCV 101 H (84-94) fl RDW 15.7 H (13.2-15.2) % Seg Neuts % (Manual) 95.0 H (40.0-70.0) % Lymphocytes % (Manual) 3.0 L (13.4-35.0) % Seg Neutrophils # Man 8.0 H (1.8-7.7) K/mm3 Lymphocytes # (Manual) 0.3 L (1.2-5.4) K/mm3 ABG pH (7.320-7.450) POC ABG pCO2 (32.0-48.0) mmHg ABG Sodium (136.0-145.0) mmol/L ABG Potassium (3.40-4.50) mmol/L ABG Chloride (98-107) mmol/L ABG Glucose (65-95) mg/dL Sodium 151 H (137-145) mmol/L Potassium 5.9 H D (3.6-5.0) mmol/L Chloride 117.8 H (98-107) mmol/L BUN 54 H (9-20) mg/dL Creatinine 2.2 H (0.8-1.3) mg/dL Glucose 208 H (75-100) mg/dL POC Glucose (70-105) mg/dL Calcium 7.9 L (8.4-10.2) mg/dL Arterial Blood Glucose (65-95) mg/dL
--- NOTE | 2021-01-29 12:41 | Progress Note ---
Assessment and Plan Hypoxic resp failure possible COVID-19 PNA Hyperkalemia Acute renal failure secondary to tubular necorsis Hyponatremia stable Cr and BUN with excellent UOP noted with elevated K, will give one dose lasix,IV calcium with Iv insulin and D50W and repeated BMP ~1700 will switch IVF to hypotoic D5W with 75 meq sodium bicarb for hypernatremia no indication for HEEL TURNER Strict I&O daily weight avoid nephrotoxins Renally dose meds Carlton Pitts MD [phone] Subjective Date of service: 01/29/21 Principal diagnosis: DEISI Interval history: No fever. Remains on the vent Objective - Vital Signs Vital signs: Vital Signs - 12hr 01/29/21 01/29/21 01/29/21 00:45 01:00 01:16 Temperature Pulse Rate 82 87 102 H Pulse Rate [ From Monitor] Respiratory 18 18 19 Rate Blood Pressure 123/67 132/66 151/79 O2 Sat by Pulse 94 94 94 Oximetry 01/29/21 01/29/21 01/29/21 01:30 01:45 02:00 Temperature Pulse Rate 95 H 91 H 92 H Pulse Rate [ From Monitor] Respiratory 18 18 18 Rate Blood Pressure 151/79 129/66 135/67 O2 Sat by Pulse 94 94 94 Oximetry 01/29/21 01/29/21 01/29/21 02:15 02:30 02:45 Temperature Pulse Rate 89 86 83 Pulse Rate [ From Monitor] Respiratory 18 18 18 Rate Blood Pressure 130/65 124/65 123/65 O2 Sat by Pulse 93 94 94 Oximetry 01/29/21 01/29/21 01/29/21 03:00 03:15 03:30 Temperature 99.6 F Pulse Rate 82 82 83 Pulse Rate [ From Monitor] Respiratory 18 18 18 Rate Blood Pressure 121/65 121/66 122/66 O2 Sat by Pulse 94 94 95 Oximetry 01/29/21 01/29/21 01/29/21 03:45 04:00 04:15 Temperature Pulse Rate 80 79 78 Pulse Rate [ 78 From Monitor] Respiratory 18 18 18 Rate Blood Pressure 120/62 116/63 119/67 O2 Sat by Pulse 95 95 95 Oximetry 01/29/21 01/29/21 01/29/21 04:30 04:46 05:00 Temperature Pulse Rate 77 78 83 Pulse Rate [ From Monitor] Respiratory 18 18 19 Rate Blood Pressure 117/63 117/63 118/62 O2 Sat by Pulse 95 95 95 Oximetry 01/29/21 01/29/21 01/29/21 05:15 05:30 05:45 Temperature Pulse Rate 80 76 71 Pulse Rate [ From Monitor] Respiratory 18 24 24 Rate Blood Pressure 127/67 117/68 113/68 O2 Sat by Pulse 95 93 93 Oximetry 01/29/21 01/29/21 01/29/21 06:00 06:15 06:30 Temperature Pulse Rate 75 71 68 Pulse Rate [ From Monitor] Respiratory 24 24 24 Rate Blood Pressure 118/61 104/62 108/62 O2 Sat by Pulse 92 91 92 Oximetry 01/29/21 01/29/21 01/29/21 06:45 07:00 07:15 Temperature Pulse Rate 67 65 65 Pulse Rate [ From Monitor] Respiratory 24 24 24 Rate Blood Pressure 108/65 108/63 106/63 O2 Sat by Pulse 92 93 94 Oximetry 01/29/21 01/29/21 01/29/21 07:30 07:45 07:56 Temperature Pulse Rate 66 66 67 Pulse Rate [ From Monitor] Respiratory 24 24 Rate Blood Pressure 110/64 110/64 110/64 O2 Sat by Pulse 95 95 94 Oximetry 01/29/21 01/29/21 01/29/21 08:00 08:15 08:30 Temperature 99 F Pulse Rate 67 67 67 Pulse Rate [ From Monitor] Respiratory 24 24 24 Rate Blood Pressure 108/64 106/62 104/59 O2 Sat by Pulse 92 93 94 Oximetry 01/29/21 01/29/21 08:45 11:24 Temperature Pulse Rate 69 72 Pulse Rate [ From Monitor] Respiratory 24 Rate Blood Pressure 111/61 113/61 O2 Sat by Pulse 94 92 Oximetry - Lab 01/29/21 Unknown 01/29/21 06:00 Most recent lab results ABG pH 7.119 (7.320-7.450) L 01/29/21 05:00 ABG pCO2 39.5 mm Hg 01/23/21 Unknown ABG pO2 165.4 mm Hg (80.0-90.0) H 01/23/21 Unknown ABG HCO3 22.4 mmol/L (20.0-26.0) 01/23/21 Unknown ABG O2 Saturation 94.9 (0-100) 01/29/21 05:00 Calcium 7.9 mg/dL (8.4-10.2) L 01/29/21 06:00 Magnesium 3.20 mg/dL (1.7-2.3) H 01/28/21 06:00 Urine Creatinine 301.2 mg/dL (0.1-20.0) H 01/22/21 22:39 Urine Sodium 28 mmol/L 01/22/21 22:39 Medications & Allergies - Medications Allergies/Adverse Reactions: Allergies No Known Allergies Allergy (Unverified 03/12/20 13:41) Home Medications: Home Medications Medication Instructions Recorded Confirmed Last Taken Type Clindamycin [Clindamycin CAP] 300 mg PO Q8H #21 cap 03/12/20 Unknown Rx Insulin NPH/Regular [Novolin 70/30] 18 unit SUB-Q TIDAC #1 vial 03/12/20 Unkno wn Rx Syringe-Needle,Insulin,0.5 ml 1 box MC TID #1 box 03/12/20 Unknown Rx [Insulin Syringe/Needle 0.5 ML] Active Medications: Generic Name Dose Route Start Last Admin Trade Name Freq PRN Reason Stop Dose Admin Acetaminophen 650 mg 01/23/21 02:25 Acetaminophen 650 Mg Rect Supp [place] Q4H PRN Pain, Mild (1-3) Acetaminophen 650 mg 01/24/21 12:58 01/27/21 04:25 Acetaminophen 325 Mg/10.15 Ml Oral Liqd Unit Dose FEEDTUBE 650 mg Q6H PRN Administration Pain, Mild (1-3) Lipase/Protease/Amylase 1 each 01/26/21 14:25 Lipase 10,500/Protease 25,000/Amylase 43,750 (Units) Dr Claudio FEEDTUBE PRN PRN For Clogged Feeding Tube Dexamethasone 6 mg 01/23/21 22:00 01/29/21 09:11 Dexamethasone 4 Mg/Ml Vial IV 02/01/21 22:01 6 mg BID CECE Administration Dextrose 50 ml 01/27/21 07:24 Dextrose 50% In Water (25gm) 50 Ml Syringe IV Q30MIN PRN Hypoglycemia Protocol Dextrose 25 ml 01/29/21 13:00 Dextrose 50% In Water (25gm) 50 Ml Syringe IV 01/30/21 13:01 Q30MIN CECE Protocol Enoxaparin Sodium 120 mg 01/26/21 11:00 01/29/21 09:35 Enoxaparin 120 Mg/0.8 Ml Inj SUB-Q 120 mg Q24HR CECE Administration Famotidine 20 mg 01/24/21 10:00 01/29/21 09:15 Famotidine 20 Mg/2 Ml Inj IV 20 mg DAILY CECE Administration Fentanyl 50 mcg 01/22/21 22:39 Fentanyl 100 Mcg/2 Ml Inj IV Q10MIN PRN ANALGESIA Furosemide 40 mg 01/29/21 12:29 Furosemide 40 Mg/4 Ml Inj IV 01/29/21 12:30 ONCE ONE Hydrophilic Ointment 1 applic 01/22/21 22:39 Lip Therapy Vaseline TP Q2HR PRN Dry Lips Fentanyl Citrate 2,000 mcg in 100 mls @ 6.124 mls/hr 01/22/21 23:00 01/29/21 11:58 Fentanyl Drip Premix IV 3 mcg/kg/hr TITR CECE 18.371 mls/hr Administration Protocol 1 MCG/KG/HR Propofol 1,000 mg in 100 mls @ 3.674 mls/hr 01/22/21 23:45 01/29/21 11:58 Diprivan 10 Mg/Ml IV 50 mcg/kg/min TITR CECE 36.741 mls/hr Administration Protocol 5 MCG/KG/MIN Sodium Chloride 1,000 mls @ 100 mls/hr 01/23/21 08:00 01/29/21 11:59 Nacl 0.9% 1000 Ml IV 100 mls/hr DIRECT CECE Infusion Dexmedetomidine HCl 400 mcg/ 104 mls @ 6.368 mls/hr 01/26/21 11:00 01/29/21 09:12 Sodium Chloride IV 1 mcg/kg/hr TITRATE CECE 31.842 mls/hr Administration Protocol 0.2 MCG/KG/HR REMDESIVIR 100 mg/ Sodium 250 mls @ 500 mls/hr 01/28/21 21:00 01/28/21 20:51 Chloride IV 01/29/21 21:29 500 mls/hr Q24HR@2100 CECE Administration Norepinephrine 4 mg in 250 mls @ 7.5 mls/hr 01/28/21 14:00 Levophed Drip 4 Mg/Ns 250 Ml IV TITR CECE Protocol 2 MCG/MIN Cisatracurium Besylate 40 mg/ 400 mls @ 73.482 mls/hr 01/28/21 14:00 01/29/21 08:05 Sodium Chloride IV 01/30/21 13:59 1 mcg/kg/min TITR CECE 73.482 mls/hr Administration Protocol 1 MCG/KG/MIN Calcium Gluconate 1,000 mg/ 110 mls @ 660 mls/hr 01/29/21 12:29 Sodium Chloride IV 01/29/21 12:38 ONCE ONE Insulin Human Regular 0 units 01/29/21 12:35 Insulin Regular, Human 100 Units/1 Ml IV 01/29/21 12:36 ONCE ONE Protocol Multi-Ingred Cream/Lotion/Oil/Oint 1 applic 01/22/21 22:39 Mineral Oil/Petrolatum, White Ophth Oint 3.5 Gm OU Q4HR PRN Dry Eye(s) Multi-Ingred Cream/Lotion/Oil/Oint 1 applic 01/28/21 16:00 01/29/21 09:14 Mineral Oil/Petrolatum, White Ophth Oint 3.5 Gm OU 01/30/21 10:01 1 applic Q6H CECE Administration Ondansetron HCl 4 mg 01/23/21 02:17 Ondansetron 4 Mg/2 Ml Inj IV Q8H PRN Nausea And Vomiting Simple Syrup 15 ml 01/26/21 14:25 Simple Syrup 15 Ml FEEDTUBE PRN PRN Hypoglycemia Simple Syrup 30 ml 01/26/21 14:25 Simple Syrup 15 Ml FEEDTUBE PRN PRN Hypoglycemia Sodium Bicarbonate 325 mg 01/26/21 14:25 Sodium Bicarbonate 325 Mg Tab FEEDTUBE PRN PRN For Clogged Feeding Tube
[2021-01-29] MEDS ORDERED: FUROSEMIDE 40 MG/4 ML INJ IV SCH (13:00)
[2021-01-29] MEDS ORDERED: INSULIN REGULAR, HUMAN 100 UNITS/1 ML IV SCH (13:00)
[2021-01-29] MEDS ORDERED: DEXTROSE 50% IN WATER (25GM) 50 ML SYRINGE IV SCH (13:00)
[2021-01-29] MEDS ORDERED: SODIUM BICARBONATE 75 MEQ in DEXTROSE 5% IN WATER 1,000 ML IV ONE (13:30)
[2021-01-29] MEDS: ACETAMINOPHEN 325 MG/10.15 ML ORAL LIQD UNIT DOSE FEEDTUBE PRN (18:28)
[2021-01-29] MEDS: REMDESIVIR 100 MG in SODIUM CHLORIDE 0.9% 250ML 250 ML IV SCH (20:18)
[2021-01-30] MEDS: fentaNYL DRIP Premix 2,000 MCG/100 ML BAG IV SCH ×4 (03:04→23:16)
[2021-01-30] MEDS: CISATRACURIUM IV SCH ×3 (05:17→22:10)
[2021-01-30] MEDS: SODIUM CHLORIDE 0.9% IV SCH ×3 (05:17→22:10)
[2021-01-30] MEDS: MINERAL OIL/PETROLATUM, WHITE OPHTH OINT 3.5 GM OU SCH ×2 (05:17→12:06)
[2021-01-30 05:47] LABS: Hematocrit 35.4 % (35.5-45.6); Hemoglobin 11.3 gm/dl (11.8-15.2); Mean Corpuscular HGB Conc 32 % (32-34); Mean Corpuscular Volume 99 fl (84-94); Platelet Count 384 K/mm3 (140-440); Red Blood Count 3.57 M/mm3 (3.65-5.03); Red Cell Distribution Width 15.6 % (13.2-15.2)
[2021-01-30 05:58] LABS: C-Reactive Protein 23.9 mg/dL (0.00-1.30)
[2021-01-30 06:10] LABS: Calcium 8.2 mg/dL (8.4-10.2)
[2021-01-30 07:08] LABS: Total Cells Counted 100
[2021-01-30 07:09] LABS: Platelet Estimate Consistent w Auto
[2021-01-30] MEDS ORDERED: SODIUM POLYSTYRENE 15 GM/60 ML ORAL LIQD PO NR (08:49)
[2021-01-30] MEDS: dexAMETHasone 4 MG/ML VIAL IV SCH ×2 (09:26→21:20)
[2021-01-30] MEDS: FAMOTIDINE 20 MG/2 ML INJ IV SCH (09:26)
[2021-01-30] MEDS: ENOXAPARIN 120 MG/0.8 ML INJ SUB-Q SCH (09:30)
--- NOTE | 2021-01-30 10:20 | Progress Note ---
Assessment and Plan Hypoxic resp failure possible COVID-19 PNA Hyperkalemia Acute renal failure secondary to tubular necorsis Hyponatremia stable Cr and BUN, polyuric, which could be 2/2 osmtoic diuresis, will urine osm will increase free water flushes to 300 cc Q4H, will repeat BMP to monitor sodium and potassium, likely wkill need to restart D5W with sodium bicarb no indication for [employer], will check 24 hours creatinine Strict I&O daily weight avoid nephrotoxins Renally dose meds Carlton Pitts MD [phone] Subjective Date of service: 01/30/21 Principal diagnosis: DEISI Interval history: on isolation for COVID-19, cont to have fever Objective - Vital Signs Vital signs: Vital Signs - 12hr 01/29/21 01/29/21 01/29/21 22:30 23:00 23:30 Temperature Pulse Rate 75 71 69 Pulse Rate [ From Monitor] Respiratory 24 24 24 Rate Blood Pressure 119/62 120/63 122/63 O2 Sat by Pulse 94 94 94 Oximetry 01/29/21 01/29/21 01/30/21 23:50 23:55 00:00 Temperature 100.3 F H Pulse Rate 69 69 Pulse Rate [ 68 From Monitor] Respiratory 24 Rate Blood Pressure 123/60 123/60 O2 Sat by Pulse 94 93 Oximetry 01/30/21 01/30/21 01/30/21 00:30 01:00 01:30 Temperature Pulse Rate 68 68 69 Pulse Rate [ From Monitor] Respiratory 24 24 24 Rate Blood Pressure 122/65 120/63 120/61 O2 Sat by Pulse 93 93 94 Oximetry 01/30/21 01/30/21 01/30/21 02:00 02:30 03:00 Temperature Pulse Rate 68 69 69 Pulse Rate [ From Monitor] Respiratory 24 24 24 Rate Blood Pressure 122/62 123/63 117/59 O2 Sat by Pulse 94 93 93 Oximetry 01/30/21 01/30/21 01/30/21 03:30 03:43 04:00 Temperature 98.6 F Pulse Rate 69 70 Pulse Rate [ 69 From Monitor] Respiratory 24 24 Rate Blood Pressure 122/58 121/59 O2 Sat by Pulse 93 93 Oximetry 01/30/21 01/30/21 01/30/21 04:12 04:30 05:00 Temperature Pulse Rate 74 71 82 Pulse Rate [ From Monitor] Respiratory 24 25 H Rate Blood Pressure 128/52 128/52 140/68 O2 Sat by Pulse 94 94 95 Oximetry 01/30/21 01/30/21 01/30/21 05:30 06:00 08:00 Temperature 98.4 F Pulse Rate 80 74 114 H Pulse Rate [ From Monitor] Respiratory 24 24 Rate Blood Pressure 122/58 123/66 191/97 O2 Sat by Pulse 93 88 93 Oximetry - Lab 01/30/21 05:00 01/31/21 04:00 Most recent lab results ABG pH 7.235 (7.320-7.450) L 01/30/21 04:24 ABG pCO2 39.5 mm Hg 01/23/21 Unknown ABG pO2 165.4 mm Hg (80.0-90.0) H 01/23/21 Unknown ABG HCO3 22.4 mmol/L (20.0-26.0) 01/23/21 Unknown ABG O2 Saturation 89.6 (0-100) 01/30/21 04:24 Calcium 8.2 mg/dL (8.4-10.2) L 01/30/21 06:00 Magnesium 2.60 mg/dL (1.7-2.3) H 01/30/21 06:00 Urine Creatinine 301.2 mg/dL (0.1-20.0) H 01/22/21 22:39 Urine Sodium 28 mmol/L 01/22/21 22:39 Medications & Allergies - Medications Allergies/Adverse Reactions: Allergies No Known Allergies Allergy (Unverified 03/12/20 13:41) Home Medications: Home Medications Medication Instructions Recorded Confirmed Last Taken Type Clindamycin [Clindamycin CAP] 300 mg PO Q8H #21 cap 03/12/20 Unknown Rx Insulin NPH/Regular [Novolin 70/30] 18 unit SUB-Q TIDAC #1 vial 03/12/20 Unknown Rx Syringe-Needle,Insulin,0.5 ml 1 box MC TID #1 box 03/12/20 Unknown Rx [Insulin Syringe/Needle 0.5 ML] Active Medications: Generic Name Dose Route Start Last Admin Trade Name Freq PRN Reason Stop Dose Admin Acetaminophen 650 mg 01/23/21 02:25 Acetaminophen 650 Mg Rect Supp GA Q4H PRN Pain, Mild (1-3) Acetaminophen 650 mg 01/24/21 12:58 01/29/21 18:28 Acetaminophen 325 Mg/10.15 Ml Oral Liqd Unit Dose FEEDTUBE 650 mg Q6H PRN Administration Pain, Mild (1-3) Lipase/Protease/Amylase 1 each 01/26/21 14:25 Lipase 10,500/Protease 25,000/Amylase 43,750 (Units) Dr Cap FEEDTUBE PRN PRN For Clogged Feeding Tube Dexamethasone 6 mg 01/23/21 22:00 01/30/21 09:26 Dexamethasone 4 Mg/Ml Vial IV 02/01/21 22:01 6 mg BID CECE Administration Dextrose 50 ml 01/27/21 07:24 Dextrose 50% In Water (25gm) 50 Ml Syringe IV Q30MIN PRN Hypoglycemia Protocol Dextrose 25 ml 01/29/21 13:00 Dextrose 50% In Water (25gm) 50 Ml Syringe IV 01/30/21 13:01 Q30MIN CECE Protocol Enoxaparin Sodium 120 mg 01/26/21 11:00 01/29/21 09:35 Enoxaparin 120 Mg/0.8 Ml Inj SUB-Q 120 mg Q24HR CECE Administration Famotidine 20 mg 01/24/21 10:00 01/30/21 09:26 Famotidine 20 Mg/2 Ml Inj IV 20 mg DAILY CECE Administration Fentanyl 50 mcg 01/22/21 22:39 Fentanyl 100 Mcg/2 Ml Inj IV Q10MIN PRN ANALGESIA Hydrophilic Ointment 1 applic 01/22/21 22:39 Lip Therapy Vaseline TP Q2HR PRN Dry Lips Fentanyl Citrate 2,000 mcg in 100 mls @ 6.124 mls/hr 01/22/21 23:00 01/30/21 09:27 Fentanyl Drip Premix IV 3 mcg/kg/hr TITR CECE 18.371 mls/hr Administration Protocol 1 MCG/KG/HR Propofol 1,000 mg in 100 mls @ 3.674 mls/hr 01/22/21 23:45 01/30/21 02:13 Diprivan 10 Mg/Ml IV 50 mcg/kg/min TITR CECE 36.741 mls/hr Administration Protocol 5 MCG/KG/MIN Dexmedetomidine HCl 400 mcg/ 104 mls @ 6.368 mls/hr 01/26/21 11:00 01/30/21 06:10 Sodium Chloride IV 1 mcg/kg/hr TITRATE CECE 31.842 mls/hr Administration Protocol 0.2 MCG/KG/HR Norepinephrine 4 mg in 250 mls @ 7.5 mls/hr 01/28/21 14:00 Levophed Drip 4 Mg/Ns 250 Ml IV TITR CECE Protocol 2 MCG/MIN Cisatracurium Besylate 40 mg/ 400 mls @ 73.482 mls/hr 01/28/21 14:00 01/30/21 05:17 Sodium Chloride IV 01/30/21 13:59 1 mcg/kg/min TITR CECE 73.482 mls/hr Administration Protocol 1 MCG/KG/MIN Multi-Ingred Cream/Lotion/Oil/Oint 1 applic 01/22/21 22:39 Mineral Oil/Petrolatum, White Ophth Oint 3.5 Gm OU Q4HR PRN Dry Eye(s) Ondansetron HCl 4 mg 01/23/21 02:17 Ondansetron 4 Mg/2 Ml Inj IV Q8H PRN Nausea And Vomiting Simple Syrup 15 ml 01/26/21 14:25 Simple Syrup 15 Ml FEEDTUBE PRN PRN Hypoglycemia Simple Syrup 30 ml 01/26/21 14:25 Simple Syrup 15 Ml FEEDTUBE PRN PRN Hypoglycemia Sodium Bicarbonate 325 mg 01/26/21 14:25 Sodium Bicarbonate 325 Mg Tab FEEDTUBE PRN PRN For Clogged Feeding Tube
[2021-01-30] MEDS ORDERED: VANCOMYCIN 1,750 MG in SODIUM CHLORIDE 0.9% 500 ML 500 ML IV ONE (10:26)
--- NOTE | 2021-01-30 10:26 | Progress Note ---
Assessment and Plan Cultures: Blood culture no growth today SARS CoV2 PCR positive 01/22/2021 respiratory culture: Usual respiratory dillon Assessment: 60 year old male with history of morbid obesity admitted on 01/22/2021 secondary to 3-day history of worsening shortness of breath associated with fever, chills, loss of smell and taste: #Severe sepsis: Present on admission with low-grade fever, tachycardia, hypoxia, hypotension, elevated lactate, DEISI. likely due to bilateral pneumonia. Urinalysis negative. Procalcitonin elevated in the setting of DEISI. #Critical COVID-19 pneumonia: Patient intubated. Chest x-ray with bilateral airspace disease. Inflammatory markers elevated. D-dimer 1173. CRP 30. S/P abx. #Acute respiratory failure: on vent. #Transaminitis: Likely secondary to COVID-19. #DEISI: creatinine stable but still elevated. Recommendations: -febrile, Blood cultures, ET aspirate culture ordered -Empiric antibiotics restarted: Cefepime, vancomycin, renally adjusted -Monitor fever -Continue steroids per pulmonary -S/P remdesivir -Monitor inflammatory markers -Anticoagulation per protocol, very high d-dimer -guarded prognosis Melida Byrne MD, FACP [facility] ([facility] O: [phone] F: [phone] Subjective Date of service: 01/30/21 Principal diagnosis: DEISI Interval history: Febrile yesterday evening and low-grade fever last night. Remains on the vent. Sedated, paralyzed. Objective - Exam Narrative Exam: Physical Exam (reviewed in chart to minimize risk of transmission) Constitutional: deferred Head, Ears, Nose: deferred Eyes: deferred Neck: deferred Oral: deferred Cardiovascular: deferred Respiratory: deferred GI: deferred Musculoskeletal: deferred Skin: deferred Hem/Lymphatic: deferred Psych: deferred Neurological: deferred - Constitutional Vitals: Vital Signs Temp Pulse Resp BP Pulse Ox 98.4 F 114 H 24 191/97 93 01/30/21 08:00 01/30/21 08:00 01/30/21 06:00 01/30/21 08:00 01/30/21 08:00 Temperature -Last 24 Hours Temperature 98.4 F Temperature 98.6 F Temperature 100.3 F Temperature 97.7 F Temperature 102.5 F Temperature 98.5 F - Labs CBC & Chem 7: 01/30/21 05:00 01/30/21 06:00 Labs: Abnormal lab results 01/24/21 01/29/21 01/29/21 Range/Units 06:00 12:29 17:28 RBC (3.65-5.03) M/mm3 Hgb (11.8-15.2) gm/dl Hct (35.5-45.6) % MCV (84-94) fl RDW (13.2-15.2) % Seg Neuts % (Manual) (40.0-70.0) % Lymphocytes % (Manual) (13.4-35.0) % Seg Neutrophils # Man (1.8-7.7) K/mm3 Lymphocytes # (Manual) (1.2-5.4) K/mm3 D-Dimer (0-234) ng/mlDDU ABG pH (7.320-7.450) POC ABG pCO2 (32.0-48.0) mmHg POC ABG pO2 (83-108) mmHg ABG Oxyhemoglobin (94-98) ABG Sodium (136.0-145.0) mmol/L ABG Potassium (3.40-4.50) mmol/L ABG Chloride (98-107) mmol/L ABG Glucose (65-95) mg/dL Sodium (137-145) mmol/L Potassium (3.6-5.0) mmol/L Chloride (98-107) mmol/L BUN (9-20) mg/dL Creatinine (0.8-1.3) mg/dL Glucose (75-100) mg/dL POC Glucose 181 H 203 H (70-105) mg/dL Calcium (8.4-10.2) mg/dL Magnesium 2.80 H (1.7-2.3) mg/dL Ferritin (30.0-300.0) ng/mL Lactate Dehydrogenase (91-180) units/L C-Reactive Protein (0.00-1.30) mg/dL Triglycerides (2-149) mg/dL Arterial Blood Glucose (65-95) mg/dL 01/29/21 01/29/21 01/29/21 Range/Units 18:05 18:13 23:34 RBC (3.65-5.03) M/mm3 Hgb (11.8-15.2) gm/dl Hct (35.5-45.6) % MCV (84-94) fl RDW (13.2-15.2) % Seg Neuts % (Manual) (40.0-70.0) % Lymphocytes % (Manual) (13.4-35.0) % Seg Neutrophils # Man (1.8-7.7) K/mm3 Lymphocytes # (Manual) (1.2-5.4) K/mm3 D-Dimer (0-234) ng/mlDDU ABG pH 7.223 L (7.320-7.450) POC ABG pCO2 64.8 H (32.0-48.0) mmHg POC ABG pO2 63.6 L (83-108) mmHg ABG Oxyhemoglobin 89.4 L (94-98) ABG Sodium 152.9 H (136.0-145.0) mmol/L ABG Potassium 5.3 H (3.40-4.50) mmol/L ABG Chloride 121.0 H (98-107) mmol/L ABG Glucose 227 H (65-95) mg/dL Sodium 151 H (137-145) mmol/L Potassium 5.5 H (3.6-5.0) mmol/L Chloride 118.2 H (98-107) mmol/L BUN 52 H (9-20) mg/dL Creatinine 2.2 H (0.8-1.3) mg/dL Glucose 224 H (75-100) mg/dL POC Glucose 198 H (70-105) mg/dL Calcium 8.0 L (8.4-10.2) mg/dL Magnesium (1.7-2.3) mg/dL Ferritin (30.0-300.0) ng/mL Lactate Dehydrogenase (91-180) units/L C-Reactive Protein (0.00-1.30) mg/dL Triglycerides (2-149) mg/dL Arterial Blood Glucose 227 H (65-95) mg/dL 01/30/21 01/30/21 01/30/21 Range/Units 04:00 04:00 04:00 RBC (3.65-5.03) M/mm3 Hgb (11.8-15.2) gm/dl Hct (35.5-45.6) % MCV (84-94) fl RDW (13.2-15.2) % Seg Neuts % (Manual) (40.0-70.0) % Lymphocytes % (Manual) (13.4-35.0) % Seg Neutrophils # Man (1.8-7.7) K/mm3 Lymphocytes # (Manual) (1.2-5.4) K/mm3 D-Dimer > 51570 H (0-234) ng/mlDDU ABG pH (7.320-7.450) POC ABG pCO2 (32.0-48.0) mmHg POC ABG pO2 (83-108) mmHg ABG Oxyhemoglobin (94-98) ABG Sodium (136.0-145.0) mmol/L ABG Potassium (3.40-4.50) mmol/L ABG Chloride (98-107) mmol/L ABG Glucose (65-95) mg/dL Sodium (137-145) mmol/L Potassium (3.6-5.0) mmol/L Chloride (98-107) mmol/L BUN (9-20) mg/dL Creatinine (0.8-1.3) mg/dL Glucose 234 H (75-100) mg/dL POC Glucose (70-105) mg/dL Calcium (8.4-10.2) mg/dL Magnesium (1.7-2.3) mg/dL Ferritin 763.9 H (30.0-300.0) ng/mL Lactate Dehydrogenase 424 H (91-180) units/L C-Reactive Protein 23.90 H (0.00-1.30) mg/dL Triglycerides (2-149) mg/dL Arterial Blood Glucose (65-95) mg/dL 01/30/21 01/30/21 01/30/21 Range/Units 04:24 05:00 05:16 RBC 3.57 L (3.65-5.03) M/mm3 Hgb 11.3 L (11.8-15.2) gm/dl Hct 35.4 L (35.5-45.6) % MCV 99 H (84-94) fl RDW 15.6 H (13.2-15.2) % Seg Neuts % (Manual) 97.0 H (40.0-70.0) % Lymphocytes % (Manual) 1.0 L (13.4-35.0) % Seg Neutrophils # Man 8.6 H (1.8-7.7) K/mm3 Lymphocytes # (Manual) 0.1 L (1.2-5.4) K/mm3 D-Dimer (0-234) ng/mlDDU ABG pH 7.235 L (7.320-7.450) POC ABG pCO2 69.7 H (32.0-48.0) mmHg POC ABG pO2 61.0 L (83-108) mmHg ABG Oxyhemoglobin 89 L (94-98) ABG Sodium 154.2 H (136.0-145.0) mmol/L ABG Potassium 5.4 H (3.40-4.50) mmol/L ABG Chloride 121.0 H (98-107) mmol/L ABG Glucose 247 H (65-95) mg/dL Sodium (137-145) mmol/L Potassium (3.6-5.0) mmol/L Chloride (98-107) mmol/L BUN (9-20) mg/dL Creatinine (0.8-1.3) mg/dL Glucose (75-100) mg/dL POC Glucose 238 H (70-105) mg/dL Calcium (8.4-10.2) mg/dL Magnesium (1.7-2.3) mg/dL Ferritin (30.0-300.0) ng/mL Lactate Dehydrogenase (91-180) units/L C-Reactive Protein (0.00-1.30) mg/dL Triglycerides (2-149) mg/dL Arterial Blood Glucose 247 H (65-95) mg/dL 01/30/21 Range/Units 06:00 RBC (3.65-5.03) M/mm3 Hgb (11.8-15.2) gm/dl Hct (35.5-45.6) % MCV (84-94) fl RDW (13.2-15.2) % Seg Neuts % (Manual) (40.0-70.0) % Lymphocytes % (Manual) (13.4-35.0) % Seg Neutrophils # Man (1.8-7.7) K/mm3 Lymphocytes # (Manual) (1.2-5.4) K/mm3 D-Dimer (0-234) ng/mlDDU ABG pH (7.320-7.450) POC ABG pCO2 (32.0-48.0) mmHg POC ABG pO2 (83-108) mmHg ABG Oxyhemoglobin (94-98) ABG Sodium (136.0-145.0) mmol/L ABG Potassium (3.40-4.50) mmol/L ABG Chloride (98-107) mmol/L ABG Glucose (65-95) mg/dL Sodium 152 H (137-145) mmol/L Potassium 5.3 H (3.6-5.0) mmol/L Chloride 120.5 H (98-107) mmol/L BUN 50 H (9-20) mg/dL Creatinine 2.3 H (0.8-1.3) mg/dL Glucose 239 H (75-100) mg/dL POC Glucose (70-105) mg/dL Calcium 8.2 L (8.4-10.2) mg/dL Magnesium 2.60 H (1.7-2.3) mg/dL Ferritin (30.0-300.0) ng/mL Lactate Dehydrogenase (91-180) units/L C-Reactive Protein (0.00-1.30) mg/dL Triglycerides 293 H (2-149) mg/dL Arterial Blood Glucose (65-95) mg/dL
[2021-01-30] MEDS ORDERED: VANCOMYCIN PHARMACY TO DOSE IV SCH (11:00)
[2021-01-30] MEDS ORDERED: VANCOMYCIN 2,000 MG in SODIUM CHLORIDE 0.9% 500 ML 500 ML IV ONE (11:30)
--- NOTE | 2021-01-30 11:39 | Progress Note ---
Assessment and Plan 60 y/o male with ARDS secondary most likely to COVID 19 pneumonia. 01/30/21: Will plan for proning later today. Goal will be at least 12hrs but long is okay. Speaking with pharmacy to see if we can get paralytic for a longer period of time. Regardless will prone. Continue heavy sedation. BP stable. Continue steroids. Very very guarded prognosis. 01/29/21: will increase tidal volume and/or increase respiratory rate. Repeat ABG this afternoon. Continue paralytic and adequate sedation. Continue steroid and remdesivir, follow up any renal recs. Prognosis remains guarded. Wean Fio2 for sats >88% 01/28/21: Increased PEEP to 16. Will paralyze patient today and increase sedation. Ordering picc line for possible vasopressor therapy needs. Continue BID steroids. Renal function is slightly better today with fluids but could be making oxygenation worse. Not able to diurese. Still making urine. Continue Remdesivir. Watch for fever curve. If not improvement in the next 24 hours with paralyzing, will prone tomorrow morning. 01/27/21: Continue PEEP at 14. No weaning until FiO2 is at or below 40-45%. Continue anticoagulation. Getting Remdesivir now. Continue BID steroids. Renal has increased the fluids. Monitor urine output and renal function. Overall prognosis is very very guarded, especially if renal status worsens. 01/26/21: Increase PEEP to 14. Will add Precedex therapy. If patient does not respond to increases in PEEP may need to prone. Will place patient on lovenox and will feed patient. Remdesivir coming. Continue BID steroids. Prognosis is guarded. 01/25/21: Hold on proning today. Continue BID steroids. ABG this AM was adequate. Pending abg tomorrow, may increase PEEP if not able to wean FiO2 any further. Per charting Remdesivir to arrive tomorrow. Guarded prognosis. 01/24/21: Continue BID steroids. No abg done this am but able to wean FiO2. Will obtain ABG in the am. Hold on proning for right now. Renal following, would like to diurese but they are given fluids for deisi. Agree with ID assessment and note. Guarded prognosis. 1. Increase steroids to BID given size 2. Check with ID to see if he is a candidate for remdesivir or any other experiemental therapy 3. Hold on proning for right now 4. Renal consulted and giving IVF's currently Guarded prognosis. CCT 31 minutes. Subjective Date of service: 01/30/21 Principal diagnosis: DEISI Interval history: PaO2 has not improved with paralytic therapy and heavy sedation. Will awaken when sedation is lightened and sats get worse. Got lasix yesterday. Cr up to 2.3 was 2.2 on yesterday. Remainder is negative. Objective Vital Signs - 12hr 01/29/21 01/29/21 01/30/21 23:50 23:55 00:00 Temperature 100.3 F H Pulse Rate 69 69 Pulse Rate [ 68 From Monitor] Respiratory 24 Rate Blood Pressure 123/60 123/60 O2 Sat by Pulse 94 93 Oximetry 01/30/21 01/30/21 01/30/21 00:30 01:00 01:30 Temperature Pulse Rate 68 68 69 Pulse Rate [ From Monitor] Respiratory 24 24 24 Rate Blood Pressure 122/65 120/63 120/61 O2 Sat by Pulse 93 93 94 Oximetry 01/30/21 01/30/21 01/30/21 02:00 02:30 03:00 Temperature Pulse Rate 68 69 69 Pulse Rate [ From Monitor] Respiratory 24 24 24 Rate Blood Pressure 122/62 123/63 117/59 O2 Sat by Pulse 94 93 93 Oximetry 01/30/21 01/30/21 01/30/21 03:30 03:43 04:00 Temperature 98.6 F Pulse Rate 69 70 Pulse Rate [ 69 From Monitor] Respiratory 24 24 Rate Blood Pressure 122/58 121/59 O2 Sat by Pulse 93 93 Oximetry 01/30/21 01/30/21 01/30/21 04:12 04:30 05:00 Temperature Pulse Rate 74 71 82 Pulse Rate [ From Monitor] Respiratory 24 25 H Rate Blood Pressure 128/52 128/52 140/68 O2 Sat by Pulse 94 94 95 Oximetry 01/30/21 01/30/21 01/30/21 05:30 06:00 08:00 Temperature 98.4 F Pulse Rate 80 74 114 H Pulse Rate [ From Monitor] Respiratory 24 24 Rate Blood Pressure 122/58 123/66 191/97 O2 Sat by Pulse 93 88 93 Oximetry CBC and BMP: 01/30/21 05:00 01/30/21 06:00 ABG, PT/INR, D-dimer: ABG ABG pH 7.235 (7.320-7.450) L 01/30/21 04:24 POC ABG pCO2 69.7 mmHg (32.0-48.0) H 01/30/21 04:24 ABG pCO2 39.5 mm Hg 01/23/21 Unknown POC ABG pO2 61.0 mmHg (83-108) L 01/30/21 04:24 ABG pO2 165.4 mm Hg (80.0-90.0) H 01/23/21 Unknown POC ABG HCO3 28.9 01/30/21 04:24 ABG O2 Saturation 89.6 (0-100) 01/30/21 04:24 PT/INR, D-dimer D-Dimer > 94448 ng/mlDDU (0-234) H 01/30/21 04:00 Abnormal lab findings: Abnormal Labs 01/22/21 01/22/21 01/22/21 22:39 22:57 22:57 WBC RBC Hgb Hct MCV MCH MCHC RDW Lymph % (Auto) 6.6 L Lymph # (Auto) 0.5 L Seg Neutrophils % 87.6 H Seg Neuts % (Manual) Lymphocytes % (Manual) Seg Neutrophils # Man Lymphocytes # (Manual) D-Dimer ABG pH POC ABG pCO2 POC ABG pO2 ABG pO2 ABG Base Excess ABG Oxyhemoglobin ABG Sodium ABG Potassium ABG Chloride ABG Glucose Carboxyhemoglobin Sodium 129 L Potassium 3.4 L Chloride 90.4 L Carbon Dioxide BUN 34 H Creatinine 1.5 H Glucose 146 H POC Glucose Lactic Acid Calcium 7.8 L Magnesium Ferritin Total Bilirubin AST 75 H ALT 57 H Lactate Dehydrogenase C-Reactive Protein Albumin 2.9 L Triglycerides Arterial Blood Glucose Arterial Blood Ionized Calcium Urine Creatinine 301.2 H Coronavirus (PCR) 01/22/21 01/22/21 01/22/21 22:57 22:57 22:57 WBC RBC Hgb Hct MCV MCH MCHC RDW Lymph % (Auto) Lymph # (Auto) Seg Neutrophils % Seg Neuts % (Manual) Lymphocytes % (Manual) Seg Neutrophils # Man Lymphocytes # (Manual) D-Dimer 1173.89 H ABG pH POC ABG pCO2 POC ABG pO2 ABG pO2 ABG Base Excess ABG Oxyhemoglobin ABG Sodium ABG Potassium ABG Chloride ABG Glucose Carboxyhemoglobin Sodium Potassium Chloride Carbon Dioxide BUN Creatinine Glucose 149 H POC Glucose Lactic Acid 2.10 H* Calcium Magnesium Ferritin Total Bilirubin AST ALT Lactate Dehydrogenase 685 H C-Reactive Protein 30.40 H Albumin Triglycerides Arterial Blood Glucose Arterial Blood Ionized Calcium Urine Creatinine Coronavirus (PCR) 01/22/21 01/23/21 01/23/21 22:57 08:41 10:01 WBC RBC Hgb Hct MCV MCH MCHC RDW Lymph % (Auto) Lymph # (Auto) Seg Neutrophils % Seg Neuts % (Manual) Lymphocytes % (Manual) Seg Neutrophils # Man Lymphocytes # (Manual) D-Dimer ABG pH POC ABG pCO2 POC ABG pO2 ABG pO2 ABG Base Excess ABG Oxyhemoglobin ABG Sodium ABG Potassium ABG Chloride ABG Glucose Carboxyhemoglobin Sodium 131 L Potassium Chloride 88.7 L Carbon Dioxide 18 L BUN 36 H Creatinine 1.6 H Glucose 147 H POC Glucose Lactic Acid Calcium 7.5 L Magnesium Ferritin 1207.0 H Total Bilirubin AST ALT Lactate Dehydrogenase C-Reactive Protein Albumin Triglycerides Arterial Blood Glucose Arterial Blood Ionized Calcium Urine Creatinine Coronavirus (PCR) Positive A 01/23/21 01/23/21 01/24/21 20:49 Unknown 00:10 WBC RBC Hgb Hct MCV MCH MCHC RDW Lymph % (Auto) Lymph # (Auto) Seg Neutrophils % Seg Neuts % (Manual) Lymphocytes % (Manual) Seg Neutrophils # Man Lymphocytes # (Manual) D-Dimer ABG pH POC ABG pCO2 POC ABG pO2 ABG pO2 165.4 H ABG Base Excess -2.5 L ABG Oxyhemoglobin ABG Sodium ABG Potassium ABG Chloride ABG Glucose Carboxyhemoglobin Sodium 130 L Potassium Chloride 91.0 L Carbon Dioxide 20 L BUN 52 H Creatinine 3.8 H D Glucose 150 H POC Glucose 125 H Lactic Acid Calcium 8.0 L Magnesium Ferritin Total Bilirubin AST 42 H ALT Lactate Dehydrogenase C-Reactive Protein Albumin 2.4 L Triglycerides Arterial Blood Glucose Arterial Blood Ionized Calcium Urine Creatinine Coronavirus (PCR) 01/24/21 01/24/21 01/24/21 05:05 05:05 05:05 WBC 14.0 H RBC Hgb Hct MCV 95 H MCH 33 H MCHC RDW Lymph % (Auto) Lymph # (Auto) Seg Neutrophils % Seg Neuts % (Manual) 91.0 H Lymphocytes % (Manual) 4.0 L Seg Neutrophils # Man 12.7 H Lymphocytes # (Manual) 0.6 L D-Dimer 6159.48 H ABG pH POC ABG pCO2 POC ABG pO2 ABG pO2 ABG Base Excess ABG Oxyhemoglobin ABG Sodium ABG Potassium ABG Chloride ABG Glucose Carboxyhemoglobin Sodium Potassium Chloride Carbon Dioxide BUN Creatinine Glucose POC Glucose Lactic Acid Calcium Magnesium Ferritin 1178.0 H Total Bilirubin AST ALT Lactate Dehydrogenase C-Reactive Protein Albumin Triglycerides Arterial Blood Glucose Arterial Blood Ionized Calcium Urine Creatinine Coronavirus (PCR) 01/24/21 01/24/21 01/24/21 05:05 05:05 05:05 WBC RBC Hgb Hct MCV MCH MCHC RDW Lymph % (Auto) Lymph # (Auto) Seg Neutrophils % Seg Neuts % (Manual) Lymphocytes % (Manual) Seg Neutrophils # Man Lymphocytes # (Manual) D-Dimer ABG pH POC ABG pCO2 POC ABG pO2 ABG pO2 ABG Base Excess ABG Oxyhemoglobin ABG Sodium ABG Potassium ABG Chloride ABG Glucose Carboxyhemoglobin Sodium 132 L Potassium Chloride 93.1 L Carbon Dioxide 21 L BUN 57 H Creatinine 3.7 H Glucose 133 H POC Glucose Lactic Acid 2.20 H* Calcium 7.7 L Magnesium Ferritin Total Bilirubin AST ALT Lactate Dehydrogenase 658 H C-Reactive Protein 33.20 H Albumin 2.4 L Triglycerides Arterial Blood Glucose Arterial Blood Ionized Calcium Urine Creatinine Coronavirus (PCR) 01/24/21 01/24/21 01/24/21 05:34 06:00 17:35 WBC RBC Hgb Hct MCV MCH MCHC RDW Lymph % (Auto) Lymph # (Auto) Seg Neutrophils % Seg Neuts % (Manual) Lymphocytes % (Manual) Seg Neutrophils # Man Lymphocytes # (Manual) D-Dimer ABG pH POC ABG pCO2 POC ABG pO2 ABG pO2 ABG Base Excess ABG Oxyhemoglobin ABG Sodium ABG Potassium ABG Chloride ABG Glucose Carboxyhemoglobin Sodium Potassium Chloride Carbon Dioxide BUN Creatinine Glucose POC Glucose 136 H 137 H Lactic Acid Calcium Magnesium 2.80 H Ferritin Total Bilirubin AST ALT Lactate Dehydrogenase C-Reactive Protein Albumin Triglycerides Arterial Blood Glucose Arterial Blood Ionized Calcium Urine Creatinine Coronavirus (PCR) 01/25/21 01/25/21 01/25/21 04:15 05:40 05:40 WBC RBC Hgb Hct MCV 95 H MCH 33 H MCHC 35 H RDW Lymph % (Auto) Lymph # (Auto) Seg Neutrophils % Seg Neuts % (Manual) 95.0 H Lymphocytes % (Manual) 3.0 L Seg Neutrophils # Man 7.8 H Lymphocytes # (Manual) 0.2 L D-Dimer ABG pH POC ABG pCO2 POC ABG pO2 63.2 L ABG pO2 ABG Base Excess ABG Oxyhemoglobin 89.6 L ABG Sodium ABG Potassium ABG Chloride ABG Glucose 165 H Carboxyhemoglobin 0.3 L Sodium Potassium Chloride Carbon Dioxide BUN 67 H Creatinine 3.4 H Glucose 153 H POC Glucose Lactic Acid Calcium 7.5 L Magnesium Ferritin Total Bilirubin 1.40 H AST 62 H ALT Lactate Dehydrogenase C-Reactive Protein Albumin 2.6 L Triglycerides Arterial Blood Glucose 165 H Arterial Blood Ionized Calcium 4.3 L Urine Creatinine Coronavirus (PCR) 01/25/21 01/25/21 01/25/21 05:59 12:00 17:17 WBC RBC Hgb Hct MCV MCH MCHC RDW Lymph % (Auto) Lymph # (Auto) Seg Neutrophils % Seg Neuts % (Manual) Lymphocytes % (Manual) Seg Neutrophils # Man Lymphocytes # (Manual) D-Dimer ABG pH POC ABG pCO2 POC ABG pO2 ABG pO2 ABG Base Excess ABG Oxyhemoglobin ABG Sodium ABG Potassium ABG Chloride ABG Glucose Carboxyhemoglobin Sodium Potassium Chloride Carbon Dioxide BUN Creatinine Glucose POC Glucose 140 H 143 H 149 H Lactic Acid Calcium Magnesium Ferritin Total Bilirubin AST ALT Lactate Dehydrogenase C-Reactive Protein Albumin Triglycerides Arterial Blood Glucose Arterial Blood Ionized Calcium Urine Creatinine Coronavirus (PCR) 01/25/21 01/26/21 01/26/21 23:41 03:43 05:46 WBC RBC Hgb Hct MCV MCH MCHC RDW Lymph % (Auto) Lymph # (Auto) Seg Neutrophils % Seg Neuts % (Manual) Lymphocytes % (Manual) Seg Neutrophils # Man Lymphocytes # (Manual) D-Dimer ABG pH POC ABG pCO2 POC ABG pO2 70.0 L ABG pO2 ABG Base Excess ABG Oxyhemoglobin 91.9 L ABG Sodium ABG Potassium ABG Chloride 109.0 H ABG Glucose 165 H Carboxyhemoglobin Sodium Potassium Chloride Carbon Dioxide BUN Creatinine Glucose POC Glucose 132 H 161 H Lactic Acid Calcium Magnesium Ferritin Total Bilirubin AST ALT Lactate Dehydrogenase C-Reactive Protein Albumin Triglycerides Arterial Blood Glucose 165 H Arterial Blood Ionized Calcium 4.5 L Urine Creatinine Coronavirus (PCR) 01/26/21 01/26/21 01/26/21 05:47 05:47 05:47 WBC RBC Hgb Hct 35.3 L MCV 96 H MCH 33 H MCHC RDW Lymph % (Auto) Lymph # (Auto) Seg Neutrophils % Seg Neuts % (Manual) 96.0 H Lymphocytes % (Manual) 2.0 L Seg Neutrophils # Man Lymphocytes # (Manual) 0.1 L D-Dimer > 23799 H ABG pH POC ABG pCO2 POC ABG pO2 ABG pO2 ABG Base Excess ABG Oxyhemoglobin ABG Sodium ABG Potassium ABG Chloride ABG Glucose Carboxyhemoglobin Sodium Potassium Chloride Carbon Dioxide BUN 57 H Creatinine 2.2 H Glucose 185 H POC Glucose Lactic Acid Calcium 8.1 L Magnesium Ferritin Total Bilirubin AST ALT Lactate Dehydrogenase C-Reactive Protein Albumin Triglycerides Arterial Blood Glucose Arterial Blood Ionized Calcium Urine Creatinine Coronavirus (PCR) 01/26/21 01/26/21 01/26/21 05:47 05:47 05:47 WBC RBC Hgb Hct MCV MCH MCHC RDW Lymph % (Auto) Lymph # (Auto) Seg Neutrophils % Seg Neuts % (Manual) Lymphocytes % (Manual) Seg Neutrophils # Man Lymphocytes # (Manual) D-Dimer ABG pH POC ABG pCO2 POC ABG pO2 ABG pO2 ABG Base Excess ABG Oxyhemoglobin ABG Sodium ABG Potassium ABG Chloride ABG Glucose Carboxyhemoglobin Sodium Potassium Chloride 107.1 H Carbon Dioxide BUN 56 H Creatinine 2.2 H Glucose 188 H POC Glucose Lactic Acid Calcium 8.0 L Magnesium Ferritin 1178.0 H Total Bilirubin 1.50 H AST ALT Lactate Dehydrogenase 588 H C-Reactive Protein 40.10 H Albumin 2.2 L Triglycerides Arterial Blood Glucose Arterial Blood Ionized Calcium Urine Creatinine Coronavirus (PCR) 01/26/21 01/26/21 01/26/21 11:34 18:17 23:20 WBC RBC Hgb Hct MCV MCH MCHC RDW Lymph % (Auto) Lymph # (Auto) Seg Neutrophils % Seg Neuts % (Manual) Lymphocytes % (Manual) Seg Neutrophils # Man Lymphocytes # (Manual) D-Dimer ABG pH POC ABG pCO2 POC ABG pO2 ABG pO2 ABG Base Excess ABG Oxyhemoglobin ABG Sodium ABG Potassium ABG Chloride ABG Glucose Carboxyhemoglobin Sodium Potassium Chloride Carbon Dioxide BUN Creatinine Glucose POC Glucose 129 H 205 H 155 H Lactic Acid Calcium Magnesium Ferritin Total Bilirubin AST ALT Lactate Dehydrogenase C-Reactive Protein Albumin Triglycerides Arterial Blood Glucose Arterial Blood Ionized Calcium Urine Creatinine Coronavirus (PCR) 01/27/21 01/27/21 01/27/21 02:45 05:29 05:29 WBC RBC 3.58 L Hgb 11.7 L Hct 34.9 L MCV 97 H MCH 33 H MCHC RDW Lymph % (Auto) Lymph # (Auto) Seg Neutrophils % Seg Neuts % (Manual) 88.0 H Lymphocytes % (Manual) 7.0 L Seg Neutrophils # Man Lymphocytes # (Manual) 0.5 L D-Dimer ABG pH 7.319 L POC ABG pCO2 50.7 H POC ABG pO2 63.0 L ABG pO2 ABG Base Excess ABG Oxyhemoglobin ABG Sodium 145.2 H ABG Potassium 5.1 H ABG Chloride 114.0 H ABG Glucose 178 H Carboxyhemoglobin Sodium Potassium Chloride Carbon Dioxide BUN Creatinine Glucose POC Glucose Lactic Acid Calcium Magnesium 4.00 H Ferritin Total Bilirubin AST ALT Lactate Dehydrogenase C-Reactive Protein Albumin Triglycerides Arterial Blood Glucose 178 H Arterial Blood Ionized Calcium Urine Creatinine Coronavirus (PCR) 01/27/21 01/27/21 01/27/21 05:29 05:29 05:31 WBC RBC Hgb Hct MCV MCH MCHC RDW Lymph % (Auto) Lymph # (Auto) Seg Neutrophils % Seg Neuts % (Manual) Lymphocytes % (Manual) Seg Neutrophils # Man Lymphocytes # (Manual) D-Dimer ABG pH POC ABG pCO2 POC ABG pO2 ABG pO2 ABG Base Excess ABG Oxyhemoglobin ABG Sodium ABG Potassium ABG Chloride ABG Glucose Carboxyhemoglobin Sodium Potassium 5.2 H Chloride 109.6 H Carbon Dioxide BUN 67 H Creatinine 2.8 H Glucose 195 H POC Glucose 176 H Lactic Acid Calcium 7.9 L Magnesium Ferritin Total Bilirubin AST ALT Lactate Dehydrogenase C-Reactive Protein Albumin Triglycerides 160 H Arterial Blood Glucose Arterial Blood Ionized Calcium Urine Creatinine Coronavirus (PCR) 01/27/21 01/27/21 01/27/21 11:27 18:08 23:30 WBC RBC Hgb Hct MCV MCH MCHC RDW Lymph % (Auto) Lymph # (Auto) Seg Neutrophils % Seg Neuts % (Manual) Lymphocytes % (Manual) Seg Neutrophils # Man Lymphocytes # (Manual) D-Dimer ABG pH POC ABG pCO2 POC ABG pO2 ABG pO2 ABG Base Excess ABG Oxyhemoglobin ABG Sodium ABG Potassium ABG Chloride ABG Glucose Carboxyhemoglobin Sodium Potassium Chloride Carbon Dioxide BUN Creatinine Glucose POC Glucose 189 H 212 H 175 H Lactic Acid Calcium Magnesium Ferritin Total Bilirubin AST ALT Lactate Dehydrogenase C-Reactive Protein Albumin Triglycerides Arterial Blood Glucose Arterial Blood Ionized Calcium Urine Creatinine Coronavirus (PCR) 01/28/21 01/28/21 01/28/21 03:58 04:00 04:00 WBC RBC Hgb Hct MCV MCH MCHC RDW Lymph % (Auto) Lymph # (Auto) Seg Neutrophils % Seg Neuts % (Manual) Lymphocytes % (Manual) Seg Neutrophils # Man Lymphocytes # (Manual) D-Dimer > 56206 H ABG pH POC ABG pCO2 POC ABG pO2 52.9 L ABG pO2 ABG Base Excess ABG Oxyhemoglobin 84.1 L ABG Sodium 148.9 H ABG Potassium ABG Chloride 117.0 H ABG Glucose 194 H Carboxyhemoglobin Sodium Potassium Chloride Carbon Dioxide BUN Creatinine Glucose POC Glucose Lactic Acid Calcium Magnesium Ferritin Total Bilirubin AST ALT Lactate Dehydrogenase 679 H C-Reactive Protein 17.10 H Albumin Triglycerides Arterial Blood Glucose 194 H Arterial Blood Ionized Calcium Urine Creatinine Coronavirus (PCR) 01/28/21 01/28/21 01/28/21 04:00 05:00 06:00 WBC RBC 3.59 L Hgb 11.6 L Hct 34.8 L MCV 97 H MCH MCHC RDW Lymph % (Auto) Lymph # (Auto) Seg Neutrophils % Seg Neuts % (Manual) 96.0 H Lymphocytes % (Manual) 3.0 L Seg Neutrophils # Man Lymphocytes # (Manual) 0.2 L D-Dimer ABG pH POC ABG pCO2 POC ABG pO2 ABG pO2 ABG Base Excess ABG Oxyhemoglobin ABG Sodium ABG Potassium ABG Chloride ABG Glucose Carboxyhemoglobin Sodium Potassium Chloride Carbon Dioxide BUN Creatinine Glucose POC Glucose 159 H Lactic Acid Calcium Magnesium Ferritin 798.0 H Total Bilirubin AST ALT Lactate Dehydrogenase C-Reactive Protein Albumin Triglycerides Arterial Blood Glucose Arterial Blood Ionized Calcium Urine Creatinine Coronavirus (PCR) 01/28/21 01/28/21 01/28/21 06:00 06:00 08:12 WBC RBC Hgb Hct MCV MCH MCHC RDW Lymph % (Auto) Lymph # (Auto) Seg Neutrophils % Seg Neuts % (Manual) Lymphocytes % (Manual) Seg Neutrophils # Man Lymphocytes # (Manual) D-Dimer ABG pH POC ABG pCO2 POC ABG pO2 ABG pO2 ABG Base Excess ABG Oxyhemoglobin ABG Sodium ABG Potassium ABG Chloride ABG Glucose Carboxyhemoglobin Sodium Potassium Chloride 111.9 H Carbon Dioxide BUN 59 H Creatinine 2.2 H Glucose 189 H POC Glucose 181 H Lactic Acid Calcium 8.1 L Magnesium 3.20 H Ferritin Total Bilirubin AST ALT Lactate Dehydrogenase C-Reactive Protein Albumin Triglycerides Arterial Blood Glucose Arterial Blood Ionized Calcium Urine Creatinine Coronavirus (PCR) 01/28/21 01/28/21 01/28/21 12:03 16:43 23:51 WBC RBC Hgb Hct MCV MCH MCHC RDW Lymph % (Auto) Lymph # (Auto) Seg Neutrophils % Seg Neuts % (Manual) Lymphocytes % (Manual) Seg Neutrophils # Man Lymphocytes # (Manual) D-Dimer ABG pH POC ABG pCO2 POC ABG pO2 ABG pO2 ABG Base Excess ABG Oxyhemoglobin ABG Sodium ABG Potassium ABG Chloride ABG Glucose Carboxyhemoglobin Sodium Potassium Chloride Carbon Dioxide BUN Creatinine Glucose POC Glucose 164 H 198 H 196 H Lactic Acid Calcium Magnesium Ferritin Total Bilirubin AST ALT Lactate Dehydrogenase C-Reactive Protein Albumin Triglycerides Arterial Blood Glucose Arterial Blood Ionized Calcium Urine Creatinine Coronavirus (PCR) 01/29/21 01/29/21 01/29/21 05:00 05:23 06:00 WBC RBC Hgb Hct MCV MCH MCHC RDW Lymph % (Auto) Lymph # (Auto) Seg Neutrophils % Seg Neuts % (Manual) Lymphocytes % (Manual) Seg Neutrophils # Man Lymphocytes # (Manual) D-Dimer ABG pH 7.119 L POC ABG pCO2 87.1 H POC ABG pO2 ABG pO2 ABG Base Excess ABG Oxyhemoglobin ABG Sodium 152.5 H ABG Potassium 5.7 H ABG Chloride 120.0 H ABG Glucose 217 H Carboxyhemoglobin Sodium 151 H Potassium 5.9 H D Chloride 117.8 H Carbon Dioxide BUN 54 H Creatinine 2.2 H Glucose 208 H POC Glucose 180 H Lactic Acid Calcium 7.9 L Magnesium Ferritin Total Bilirubin AST ALT Lactate Dehydrogenase C-Reactive Protein Albumin Triglycerides Arterial Blood Glucose 217 H Arterial Blood Ionized Calcium Urine Creatinine Coronavirus (PCR) 01/29/21 01/29/21 01/29/21 12:29 17:28 18:05 WBC RBC Hgb Hct MCV MCH MCHC RDW Lymph % (Auto) Lymph # (Auto) Seg Neutrophils % Seg Neuts % (Manual) Lymphocytes % (Manual) Seg Neutrophils # Man Lymphocytes # (Manual) D-Dimer ABG pH POC ABG pCO2 POC ABG pO2 ABG pO2 ABG Base Excess ABG Oxyhemoglobin ABG Sodium ABG Potassium ABG Chloride ABG Glucose Carboxyhemoglobin Sodium 151 H Potassium 5.5 H Chloride 118.2 H Carbon Dioxide BUN 52 H Creatinine 2.2 H Glucose 224 H POC Glucose 181 H 203 H Lactic Acid Calcium 8.0 L Magnesium Ferritin Total Bilirubin AST ALT Lactate Dehydrogenase C-Reactive Protein Albumin Triglycerides Arterial Blood Glucose Arterial Blood Ionized Calcium Urine Creatinine Coronavirus (PCR) 01/29/21 01/29/21 01/29/21 18:13 23:34 Unknown WBC RBC Hgb Hct MCV 101 H MCH MCHC RDW 15.7 H Lymph % (Auto) Lymph # (Auto) Seg Neutrophils % Seg Neuts % (Manual) 95.0 H Lymphocytes % (Manual) 3.0 L Seg Neutrophils # Man 8.0 H Lymphocytes # (Manual) 0.3 L D-Dimer ABG pH 7.223 L POC ABG pCO2 64.8 H POC ABG pO2 63.6 L ABG pO2 ABG Base Excess ABG Oxyhemoglobin 89.4 L ABG Sodium 152.9 H ABG Potassium 5.3 H ABG Chloride 121.0 H ABG Glucose 227 H Carboxyhemoglobin Sodium Potassium Chloride Carbon Dioxide BUN Creatinine Glucose POC Glucose 198 H Lactic Acid Calcium Magnesium Ferritin Total Bilirubin AST ALT Lactate Dehydrogenase C-Reactive Protein Albumin Triglycerides Arterial Blood Glucose 227 H Arterial Blood Ionized Calcium Urine Creatinine Coronavirus (PCR) 01/30/21 01/30/21 01/30/21 04:00 04:00 04:00 WBC RBC Hgb Hct MCV MCH MCHC RDW Lymph % (Auto) Lymph # (Auto) Seg Neutrophils % Seg Neuts % (Manual) Lymphocytes % (Manual) Seg Neutrophils # Man Lymphocytes # (Manual) D-Dimer > 73375 H ABG pH POC ABG pCO2 POC ABG pO2 ABG pO2 ABG Base Excess ABG Oxyhemoglobin ABG Sodium ABG Potassium ABG Chloride ABG Glucose Carboxyhemoglobin Sodium Potassium Chloride Carbon Dioxide BUN Creatinine Glucose 234 H POC Glucose Lactic Acid Calcium Magnesium Ferritin 763.9 H Total Bilirubin AST ALT Lactate Dehydrogenase 424 H C-Reactive Protein 23.90 H Albumin Triglycerides Arterial Blood Glucose Arterial Blood Ionized Calcium Urine Creatinine Coronavirus (PCR) 01/30/21 01/30/21 01/30/21 04:24 05:00 05:16 WBC RBC 3.57 L Hgb 11.3 L Hct 35.4 L MCV 99 H MCH MCHC RDW 15.6 H Lymph % (Auto) Lymph # (Auto) Seg Neutrophils % Seg Neuts % (Manual) 97.0 H Lymphocytes % (Manual) 1.0 L Seg Neutrophils # Man 8.6 H Lymphocytes # (Manual) 0.1 L D-Dimer ABG pH 7.235 L POC ABG pCO2 69.7 H POC ABG pO2 61.0 L ABG pO2 ABG Base Excess ABG Oxyhemoglobin 89 L ABG Sodium 154.2 H ABG Potassium 5.4 H ABG Chloride 121.0 H ABG Glucose 247 H Carboxyhemoglobin Sodium Potassium Chloride Carbon Dioxide BUN Creatinine Glucose POC Glucose 238 H Lactic Acid Calcium Magnesium Ferritin Total Bilirubin AST ALT Lactate Dehydrogenase C-Reactive Protein Albumin Triglycerides Arterial Blood Glucose 247 H Arterial Blood Ionized Calcium Urine Creatinine Coronavirus (PCR) 01/30/21 06:00 WBC RBC Hgb Hct MCV MCH MCHC RDW Lymph % (Auto) Lymph # (Auto) Seg Neutrophils % Seg Neuts % (Manual) Lymphocytes % (Manual) Seg Neutrophils # Man Lymphocytes # (Manual) D-Dimer ABG pH POC ABG pCO2 POC ABG pO2 ABG pO2 ABG Base Excess ABG Oxyhemoglobin ABG Sodium ABG Potassium ABG Chloride ABG Glucose Carboxyhemoglobin Sodium 152 H Potassium 5.3 H Chloride 120.5 H Carbon Dioxide BUN 50 H Creatinine 2.3 H Glucose 239 H POC Glucose Lactic Acid Calcium 8.2 L Magnesium 2.60 H Ferritin Total Bilirubin AST ALT Lactate Dehydrogenase C-Reactive Protein Albumin Triglycerides 293 H Arterial Blood Glucose Arterial Blood Ionized Calcium Urine Creatinine Coronavirus (PCR)
--- NOTE | 2021-01-30 16:45 | Progress Note ---
Assessment and Plan Assessment and plan: -Infectious disease, CCM, nephrology consulted -Continue contact/droplet precautions -Steroid therapy, s/p remdesivir -Antibiotic therapy -SSI -Tube feeding -Trend BMP -Resume home antihypertensive regimen when appropriate -Full dose Lovenox -Continue paralytic and sedation DVT/GI prophylaxis: SCDs to bilateral lower extremities while in bed, heparin subcu, PPI Dispo: ICU The high probability of a clinically significant, sudden or life threatening deterioration of the [multi] system(s) required my full and direct attention, intervention and personal management. The aggregate critical care time was [32] minutes. This time is in addition to time spent performing reported procedures but includes the following: [x] Data Review and interpretation [x] Patient assessment and monitoring of vital signs [x] Documentation [x] Medication orders and management History Interval history: This is a 60-year-old male with diabetes mellitus, hypertension, hyperlipidemia, chronic renal insufficiency presents to the emergency department on 01/23 with shortness of breath, fevers chills, loss of smell and taste and body aches for the past 3 days via EMS. Per EMS patient's oxygen saturation on room air was 50% and after being placed on nonrebreather it increased 75%. Upon arrival to the emergency department patient was being bagged by EMS. In the emergency room patient was intubated due to severe hypoxia, increased work of breathing and lethargy. Patient was sedated on propofol and fentanyl. Patient presented with fever, tachycardia, tachypnea and acute hypoxic respiratory failure with PNA on CXR meeting Sepsis criteria. Lab work in the emergency department revealed hyponatremia, hypokalemia, hypochloremia, elevated CR/BUN and CXR showed bila teral pneumonia. Patient was admitted to the hospital service as a COVID-19 PUI with consults to infectious disease, nephrology and critical care medicine. Sepsis COVID-19 pneumonia Bilateral pneumonia Acute hypoxic respiratory failure Acute kidney injury Hypernatremia Hyperchloremia Hyperkalemia Diabetes mellitus Hypertension Hyperlipidemia Chronic renal insufficiency Elevated D-dimer 01/24/2021: Patient is intubated and sedated, patient is positive for COVID-19 infection. ID was consulted and put on dexamethasone and remdesivir. Patient has DEISI and nephrology is following. Creatinine stable, patient is urinating. Discussed with nephrology and he is okay with remdesivir. Pulmonary critical care is following for his vent setting. PEEP of 8 and FiO2 of 85%. Patient was alert and off sedatives. 01/25/2021; patient is intubated and on mechanical ventilation. Continue with treatment of Covid. Nephrology and ID is following. Pulmonary is following for vent management 01/26: Remains on mechanical ventilation and [facility] increased his PEEP. [facility] has ordered Precedex for sedation. Possibly need to prone this p.m. No acute events reported overnight. This morning his D-dimer is greater than 10,000 and we have started him on Lovenox 120 mg daily. Nutrition has been consulted for initiation of tube feedings. Patient remains sedated on propofol 40 and fentanyl for the time my examination this morning. 01/27: Continue Lovenox, remdesivir and empiric antibiotics. Patient had a T-max of 101 overnight. The time of examination patient is on CMV 500/18/14/0.61. Kidney function slightly worsened. Sedated on fentanyl ground-level fall and Precedex. Nephrology has increased IV fluids to 100 ml/hr. Continue to trend BMP and CBC. Sedation vacation attempt by RN this AM. 01/28: Patient completed antibiotics today [facility] will paralyze patient and increase sedation. PICC line ordered for possible vasopressor therapy need. Patient's D-dimer remains greater than 10,000 and he still has hyperchloremia. Patient's kidney function has improved today. May need to prone the patient if no improvement in oxygenation is noted in the next 24 hours. The time of my examination patient is sedated with propofol, fentanyl and Precedex and is on assist control 500/18/16/0.80 hypoxic on ABG on 60% FiO2. 01/29: Patient was started on Nimbex yesterday and his ABG this morning showed r espiratory acidosis with hypercapnia and his respiratory rate was increased. We will obtain a repeat ABG this afternoon. This morning patient is hypernatremic, hyperkalemic and hyperchloremic. His potassium has been corrected with the management and will obtain repeat BMP tomorrow. His kidney functions have remained stable and we will await nephrology's input. No acute events reported overnight. This morning the time my examination patient sedated with propofol, Precedex and fentanyl and paralyzed with Nimbex. He is on assist control 500/24/16 0.80. 4/2: This morning patient is hypokalemic again and was given Kayexalate. Patient has hypernatremia and hyper chloremia and his renal function is slightly worse after receiving Lasix yesterday. His D-dimer remains greater than 10,000 and he is still on a paralytic. Patient is sedated on Precedex, fentanyl, propofol. Mechanical ventilation settings seven-point 69/61/28. [facility] has decided to continue paralytics for 48 more hours and will attempt proning the patient. She has increased free water flushes 300 cc every 4 hours. Patient states has restarted his antibiotics cefepime and vancomycin and recultured. Hospitalist Physical - Constitutional Vitals: Temp Pulse Resp BP Pulse Ox 99.5 F 89 23 141/76 92 01/30/21 16:00 01/30/21 14:30 01/30/21 14:30 01/30/21 14:30 01/30/21 14:30 General appearance: Present: no acute distress, other (sedated and paralyzed on MV) - EENT Eyes: Present: PERRL ENT: poor dentition - Neck Neck: Absent: masses or JVD, cervical LAD - Respiratory Respiratory effort: normal Respiratory: bilateral: diminished - Cardiovascular Rhythm: regular Heart Sounds: Present: S1 & S2. Absent: systolic murmur, diastolic murmur - Extremities Extremities: no ischemia, pulses intact, pulses symmetrical, normal temperature, normal color Peripheral Pulses: within normal limits - Abdominal General gastrointestinal: soft, non-tender, non-distended, normal bowel sounds - Integumentary Integumentary: Present: warm, dry - Psychiatric Psychiatric: other (sedated) - Neurologic Neurologic: other (sedated) - Allied Health Allied health notes reviewed: nursing, RT HEART Score - HEART Score Risk factors: 1-2 risk factors Troponin: < normal limit - Critical Actions Critical Actions: 0-3 pts:0.9-1.7%risk of adverse cardiac event.Candidate for discharge Results - Labs CBC & Chem 7: 01/30/21 05:00 01/30/21 06:00 Labs: Laboratory Last Values WBC 8.9 K/mm3 (4.5-11.0) 01/30/21 05:00 RBC 3.57 M/mm3 (3.65-5.03) L 01/30/21 05:00 Hgb 11.3 gm/dl (11.8-15.2) L 01/30/21 05:00 Hct 35.4 % (35.5-45.6) L 01/30/21 05:00 MCV 99 fl (84-94) H 01/30/21 05:00 MCH 32 pg (28-32) 01/30/21 05:00 MCHC 32 % (32-34) 01/30/21 05:00 RDW 15.6 % (13.2-15.2) H 01/30/21 05:00 Plt Count 384 K/mm3 (140-440) 01/30/21 05:00 Lymph % (Auto) 6.6 % (13.4-35.0) L 01/22/21 22:57 [place] % (Auto) 5.5 % (0.0-7.3) 01/22/21 22:57 Eos % (Auto) 0.0 % (0.0-4.3) 01/22/21 22:57 Baso % (Auto) 0.3 % (0.0-1.8) 01/22/21 22:57 Lymph # (Auto) 0.5 K/mm3 (1.2-5.4) L 01/22/21 22:57 [place] # (Auto) 0.4 K/mm3 (0.0-0.8) 01/22/21 22:57 Eos # (Auto) 0.0 K/mm3 (0.0-0.4) 01/22/21 22:57 Baso # (Auto) 0.0 K/mm3 (0.0-0.1) 01/22/21 22:57 Add Manual Diff Complete 01/30/21 05:00 Total Counted 100 01/30/21 05:00 Seg Neutrophils % Utility Person 01/30/21 05:00 Seg Neuts % (Manual) 97.0 % (40.0-70.0) H 01/30/21 05:00 Band Neutrophils % 1.0 % 01/27/21 05:29 Lymphocytes % (Manual) 1.0 % (13.4-35.0) L 01/30/21 05:00 Reactive Lymphs % (Man) 1.0 % 01/27/21 05:29 Monocytes % (Manual) 2.0 % (0.0-7.3) 01/30/21 05:00 Eosinophils % (Manual) 2.0 % (0.0-4.3) 01/24/21 05:05 Nucleated RBC % Not Reportable 01/30/21 05:00 Seg Neutrophils # 6.8 K/mm3 (1.8-7.7) 01/22/21 22:57 Seg Neutrophils # Man 8.6 K/mm3 (1.8-7.7) H 01/30/21 05:00 Band Neutrophils # 0.0 K/mm3 01/30/21 05:00 Lymphocytes # (Manual) 0.1 K/mm3 (1.2-5.4) L 01/30/21 05:00 Abs React Lymphs (Man) 0.0 K/mm3 01/30/21 05:00 Monocytes # (Manual) 0.2 K/mm3 (0.0-0.8) 01/30/21 05:00 Eosinophils # (Manual) 0.0 K/mm3 (0.0-0.4) 01/30/21 05:00 Basophils # (Manual) 0.0 K/mm3 (0.0-0.1) 01/30/21 05:00 Metamyelocytes # 0.0 K/mm3 01/30/21 05:00 Myelocytes # 0.0 K/mm3 01/30/21 05:00 Promyelocytes # 0.0 K/mm3 01/30/21 05:00 Blast Cells # 0.0 K/mm3 01/30/21 05:00 WBC Morphology Not Reportable 01/30/21 05:00 Hypersegmented Neuts Not Reportable 01/30/21 05:00 Hyposegmented Neuts Not Reportable 01/30/21 05:00 Hypogranular Neuts Not Reportable 01/30/21 05:00 Smudge Cells Not Reportable 01/30/21 05:00 Toxic Granulation Not Reportable 01/30/21 05:00 Toxic Vacuolation Not Reportable 01/30/21 05:00 Dohle Bodies Not Reportable 01/30/21 05:00 Pelger-Huet Anomaly Not Reportable 01/30/21 05:00 Fátima Rods Not Reportable 01/30/21 05:00 Platelet Estimate Consistent w auto 01/30/21 05:00 Clumped Platelets Not Reportable 01/30/21 05:00 Plt Clumps, EDTA Not Reportable 01/30/21 05:00 Large Platelets Not Reportable 01/30/21 05:00 Giant Platelets Not Reportable 01/30/21 05:00 Platelet Satelliting Not Reportable 01/30/21 05:00 Plt Morphology Comment Not Reportable 01/30/21 05:00 RBC Morphology Not Reportable 01/30/21 05:00 Dimorphic RBCs Not Reportable 01/30/21 05:00 Polychromasia Not Reportable 01/30/21 05:00 Hypochromasia Not Reportable 01/30/21 05:00 Poikilocytosis Not Reportable 01/30/21 05:00 Anisocytosis Not Reportable 01/30/21 05:00 Microcytosis Not Reportable 01/30/21 05:00 Macrocytosis Not Reportable 01/30/21 05:00 Spherocytes Not Reportable 01/30/21 05:00 Pappenheimer Bodies Not Reportable 01/30/21 05:00 Sickle Cells Not Reportable 01/30/21 05:00 Target Cells Not Reportable 01/30/21 05:00 Tear Drop Cells Not Reportable 01/30/21 05:00 Ovalocytes Not Reportable 01/30/21 05:00 Helmet Cells Not Reportable 01/30/21 05:00 [place] Bodies Not Reportable 01/30/21 05:00 [place]a Rings Not Reportable 01/30/21 05:00 Ludmila Cells Not Reportable 01/30/21 05:00 Bite Cells Not Reportable 01/30/21 05:00 Crenated Cell Not Reportable 01/30/21 05:00 Elliptocytes Not Reportable 01/30/21 05:00 Acanthocytes (Spur) Not Reportable 01/30/21 05:00 Rouleaux Not Reportable 01/30/21 05:00 Hemoglobin C Crystals Not Reportable 01/30/21 05:00 Schistocytes Not Reportable 01/30/21 05:00 Malaria parasites Not Reportable 01/30/21 05:00 Aquiles Bodies Not Reportable 01/30/21 05:00 Hem Pathologist Commnt No 01/30/21 05:00 D-Dimer > 07161 ng/mlDDU (0-234) H 01/30/21 04:00 ABG pH 7.235 (7.320-7.450) L 01/30/21 04:24 POC ABG pCO2 69.7 mmHg (32.0-48.0) H 01/30/21 04:24 ABG pCO2 39.5 mm Hg 01/23/21 Unknown POC ABG pO2 61.0 mmHg (83-108) L 01/30/21 04:24 ABG pO2 165.4 mm Hg (80.0-90.0) H 01/23/21 Unknown POC ABG HCO3 28.9 01/30/21 04:24 ABG HCO3 22.4 mmol/L (20.0-26.0) 01/23/21 Unknown ABG O2 Saturation 89.6 (0-100) 01/30/21 04:24 ABG O2 Content 19.6 (0.0-44) 01/23/21 Unknown POC ABG Base Excess 0 01/30/21 04:24 ABG Base Excess -2.5 mmol/L (-2.0-3.0) L 01/23/21 Unknown ABG Hemoglobin 12.0 (12.0-17.5) 01/30/21 04:24 ABG Oxyhemoglobin 89 (94-98) L 01/30/21 04:24 ABG Carboxyhemoglobin 1.7 % (0.0-5.0) 01/23/21 Unknown ABG Methemoglobin 0.1 (0.0-1.5) 01/30/21 04:24 ABG Sodium 154.2 mmol/L (136.0-145.0) H 01/30/21 04:24 ABG Potassium 5.4 mmol/L (3.40-4.50) H 01/30/21 04:24 ABG Chloride 121.0 mmol/L (98-107) H 01/30/21 04:24 ABG Glucose 247 mg/dL (65-95) H 01/30/21 04:24 Oxyhemoglobin 96.8 % (95.0-99.0) 01/23/21 Unknown Carboxyhemoglobin 0.6 (0.5-1.5) 01/30/21 04:24 FiO2 100 % 01/23/21 Unknown FiO2 % 80 01/30/21 04:24 Sodium 152 mmol/L (137-145) H 01/30/21 06:00 Potassium 5.3 mmol/L (3.6-5.0) H 01/30/21 06:00 Chloride 120.5 mmol/L (98-107) H 01/30/21 06:00 Carbon Dioxide 27 mmol/L (22-30) 01/30/21 06:00 Anion Gap 10 mmol/L 01/30/21 06:00 BUN 50 mg/dL (9-20) H 01/30/21 06:00 Creatinine 2.3 mg/dL (0.8-1.3) H 01/30/21 06:00 Estimated GFR 35 ml/min 01/30/21 06:00 BUN/Creatinine Ratio 22 % 01/30/21 06:00 Glucose 239 mg/dL (75-100) H 01/30/21 06:00 POC Glucose 153 mg/dL (70-105) H 01/30/21 11:28 Lactic Acid 1.90 mmol/L (0.7-2.0) 01/24/21 14:38 Calcium 8.2 mg/dL (8.4-10.2) L 01/30/21 06:00 Magnesium 2.60 mg/dL (1.7-2.3) H 01/30/21 06:00 Ferritin 763.9 ng/mL (30.0-300.0) H 01/30/21 04:00 Total Bilirubin 1.50 mg/dL (0.1-1.2) H 01/26/21 05:47 AST 37 units/L (5-40) 01/26/21 05:47 ALT 29 units/L (7-56) 01/26/21 05:47 Alkaline Phosphatase 70 units/L (35-129) 01/26/21 05:47 Lactate Dehydrogenase 424 units/L (91-180) H 01/30/21 04:00 C-Reactive Protein 23.90 mg/dL (0.00-1.30) H 01/30/21 04:00 Total Protein 7.2 g/dL (6.3-8.2) 01/26/21 05:47 Albumin 2.2 g/dL (3.9-5) L 01/26/21 05:47 Albumin/Globulin Ratio 0.4 % 01/26/21 05:47 Triglycerides 293 mg/dL (2-149) H 01/30/21 06:00 Procalcitonin 0.92 ng/mL (<0.15) 01/22/21 22:57 Arterial Blood Glucose 247 mg/dL (65-95) H 01/30/21 04:24 Arterial Blood Ionized Calcium 5.0 mg/dL (4.6-5.3) 01/30/21 04:24 Urine Color Nehal (Yellow) 01/22/21 22:39 Urine Turbidity Cloudy (Clear) 01/22/21 22:39 Urine pH 5.0 (5.0-7.0) 01/22/21 22:39 Ur Specific [place] 1.017 (1.003-1.030) 01/22/21 22:39 Urine Protein 100 mg/dl mg/dL (Negative) 01/22/21 22:39 Urine Glucose (UA) Neg mg/dL (Negative) 01/22/21 22:39 Urine Ketones Neg mg/dL (Negative) 01/22/21 22:39 Urine Blood Mod (Negative) 01/22/21 22:39 Urine Nitrite Neg (Negative) 01/22/21 22:39 Urine Bilirubin Neg (Negative) 01/22/21 22:39 Urine Urobilinogen 2.0 mg/dL (<2.0) 01/22/21 22:39 Ur Leukocyte Esterase Mod (Negative) 01/22/21 22:39 Urine WBC (Auto) < 1.0 /HPF (0.0-6.0) 01/22/21 22:39 Urine RBC (Auto) < 1.0 /HPF (0.0-6.0) 01/22/21 22:39 U Epithel Cells (Auto) < 1.0 /HPF (0-13.0) 01/22/21 22:39 Urine Osmolality 416 Mosm/kg 01/30/21 12:15 Urine Creatinine 301.2 mg/dL (0.1-20.0) H 01/22/21 22:39 Urine Sodium 28 mmol/L 01/22/21 22:39 Coronavirus (PCR) Positive (Negative) A 01/23/21 08:41 Black/IV: Voiding Method Indwelling Catheter Active Medications - Current Medications Current Medications: Generic Name Dose Route Start Last Admin Trade Name Freq PRN Reason Stop Dose Admin Acetaminophen 650 mg 01/23/21 02:25 Acetaminophen 650 Mg Rect Supp SC Q4H PRN Pain, Mild (1-3) Acetaminophen 650 mg 01/24/21 12:58 01/29/21 18:28 Acetaminophen 325 Mg/10.15 Ml Oral Liqd Unit Dose FEEDTUBE 650 mg Q6H PRN Administration Pain, Mild (1-3) Lipase/Protease/Amylase 1 each 01/26/21 14:25 Lipase 10,500/Protease 25,000/Amylase 43,750 (Units) Dr Cap FEEDTUBE PRN PRN For Clogged Feeding Tube Dexamethasone 6 mg 01/23/21 22:00 01/30/21 09:26 Dexamethasone 4 Mg/Ml Vial IV 02/01/21 22:01 6 mg BID CECE Administration Dextrose 50 ml 01/27/21 07:24 Dextrose 50% In Water (25gm) 50 Ml Syringe IV Q30MIN PRN Hypoglycemia Protocol Enoxaparin Sodium 120 mg 01/26/21 11:00 01/30/21 09:30 Enoxaparin 120 Mg/0.8 Ml Inj SUB-Q 120 mg Q24HR CECE Administration Famotidine 20 mg 01/24/21 10:00 01/30/21 09:26 Famotidine 20 Mg/2 Ml Inj IV 20 mg DAILY CECE Administration Fentanyl 50 mcg 01/22/21 22:39 Fentanyl 100 Mcg/2 Ml Inj IV Q10MIN PRN ANALGESIA Hydrophilic Ointment 1 applic 01/22/21 22:39 Lip Therapy Vaseline TP Q2HR PRN Dry Lips Fentanyl Citrate 2,000 mcg in 100 mls @ 6.124 mls/hr 01/22/21 23:00 01/30/21 09:27 Fentanyl Drip Premix IV 3 mcg/kg/hr TITR CECE 18.371 mls/hr Administration Protocol 1 MCG/KG/HR Propofol 1,000 mg in 100 mls @ 3.674 mls/hr 01/22/21 23:45 01/30/21 12:03 Diprivan 10 Mg/Ml IV 50 mcg/kg/min TITR CECE 36.741 mls/hr Administration Protocol 5 MCG/KG/MIN Dexmedetomidine HCl 400 mcg/ 104 mls @ 6.368 mls/hr 01/26/21 11:00 01/30/21 11:10 Sodium Chloride IV 1 mcg/kg/hr TITRATE CECE 31.842 mls/hr Administration Protocol 0.2 MCG/KG/HR Norepinephrine 4 mg in 250 mls @ 7.5 mls/hr 01/28/21 14:00 Levophed Drip 4 Mg/Ns 250 Ml IV TITR CECE Protocol 2 MCG/MIN Cefepime HCl 1 gm in 100 mls @ 200 mls/hr 01/30/21 11:30 Cefepime/Ns 1 Gm/100 Ml IV Q12HR CECE Protocol Cisatracurium Besylate 40 mg/ 400 mls @ 73.482 mls/hr 01/30/21 16:00 Sodium Chloride IV 02/01/21 15:59 TITR CECE Protocol 1 MCG/KG/MIN Multi-Ingred Cream/Lotion/Oil/Oint 1 applic 01/22/21 22:39 Mineral Oil/Petrolatum, White Ophth Oint 3.5 Gm OU Q4HR PRN Dry Eye(s) Ondansetron HCl 4 mg 01/23/21 02:17 Ondansetron 4 Mg/2 Ml Inj IV Q8H PRN Nausea And Vomiting Simple Syrup 15 ml 01/26/21 14:25 Simple Syrup 15 Ml FEEDTUBE PRN PRN Hypoglycemia Simple Syrup 30 ml 01/26/21 14:25 Simple Syrup 15 Ml FEEDTUBE PRN PRN Hypoglycemia Sodium Bicarbonate 325 mg 01/26/21 14:25 Sodium Bicarbonate 325 Mg Tab FEEDTUBE PRN PRN For Clogged Feeding Tube Nutrition/Malnutrition Assess - Dietary Evaluation Nutrition/Malnutrition Findings: Nutrition Notes Start: 01/26/21 13:59 Freq: Status: Active Protocol: Document 01/29/21 10:36 CW (Rec: 01/29/21 10:59 CW [id number]) Nutrition Notes Initial or Follow up Reassessment Current Diagnosis Acute Kidney Injury,Diabetes, Sepsis,Hypertension, Respiratory Failure, Hyperlipidemia Other Pertinent Diagnosis COVID-19 (+), bilat pneu Current Diet TF - Nepro at 30 ml/hr Labs/Tests Na 151 K 5.9 BUN 54 Cr 2.2 BG 208 Pertinent Medications NS 50 ml/hr Decadron Propofol at 36.741 ml/hr (970 kcal) Humulin Height 5 ft 8 in Weight 122.47 kg [place] Body Weight (kg) 70.00 BMI 41.0 Weight Status Morbidly Obese Subjective/Other Information F/U for proning, vent status, propofol/adjust TF rate, wt. Pt remains on mechanical vent. Propofol increased further. Will hold off on adjusting TF for now. Currently running at 40ml/hr. Informed RN of TF change. Percent of energy/protein needs met: 142%/ 101% Burn Absent Trauma Absent GI Symptoms None Difficulty In Swallowing Skin Integrity/Comment Intact Current % PO Negligible Minimum of two criteria No Reduced Regional Director Of Admissions Strength Measurably Reduced (severe) #1 Nutrition Diagnosis Inadequate oral intake Diagnosis Progress(for reassessment Continues documentation) Is patient on ventilator? Yes Is Patient Ambulatory and/or Out of Bed No REE-([facility]-confined to bed) 2403.528 Kcal/Kg value to use for calculation 15 Approximate Energy Requirements Using 1837 kcal/Kg Calculation Used for Recommendations Kcal/kg Additional Notes Pro needs 0.8-1.2g/kg adjBW: 77-115g/day Fluid needs per MD Nutrition Intervention Change Diet Order: TF Nutrition Support: Continuous TF: Nepro at 30ml/ hr with 150ml water flush q4h. (Propofol providing 970 kcal) When proning: Proned position: Nepro at 20ml /hr x 12 hr with 100ml water flush q4h. Supine position: Nepro at 50ml /hr x 12hr with 200ml water flush q4h Kcal 1,296 Protein (gm) 58 Fluid (mL) 523 Goal #1 TF tolerance Goal #2 TF to meet at least 75% energy and pro needs Anticipated Discharge Needs: unable to determine at this time Follow-Up By: 02/02/21 Additional Comments F/U for proning, propofol, vent status, wt
[2021-01-30] MEDS: CEFEPIME/NS 1 GM/100 ML 1 GM/100 ML BAG IV SCH ×2 (17:00→21:19)
[2021-01-30] MEDS: dexmedeTOMIDine 1,000 MCG in SODIUM CHLORIDE 0.9% 250ML 250 ML IV SCH (19:40)
[2021-01-31] MEDS: dexmedeTOMIDine 1,000 MCG in SODIUM CHLORIDE 0.9% 250ML 250 ML IV SCH ×4 (02:14→19:15)
[2021-01-31] MEDS: fentaNYL DRIP Premix 2,000 MCG/100 ML BAG IV SCH ×5 (03:17→19:16)
[2021-01-31] MEDS: SODIUM CHLORIDE 0.9% IV SCH ×4 (03:33→19:15)
[2021-01-31] MEDS: CISATRACURIUM IV SCH ×4 (03:33→19:15)
[2021-01-31 04:49] LABS: ABG Base Excess -3.2 mmol/L (-2.0-3.0); ABG HCO3 28.3 mmol/L (20.0-26.0); ABG Methemoglobin 0.8 % (0.0-1.5); ABG Oxygen Saturation 98.2 % (95.0-99.0); ABG PO2 142.2 mm Hg (80.0-90.0)
[2021-01-31 04:58] LABS: ABG PH 7.161 pH Units (7.350-7.450)
[2021-01-31] MEDS ORDERED: SODIUM POLYSTYRENE 15 GM/60 ML ORAL LIQD PO ONE (08:34)
[2021-01-31] MEDS: CEFEPIME/NS 1 GM/100 ML 1 GM/100 ML BAG IV SCH ×2 (09:02→22:15)
[2021-01-31] MEDS: dexAMETHasone 4 MG/ML VIAL IV SCH ×2 (09:03→22:15)
[2021-01-31] MEDS: FAMOTIDINE 20 MG/2 ML INJ IV SCH (09:03)
[2021-01-31] MEDS: ENOXAPARIN 120 MG/0.8 ML INJ SUB-Q SCH (10:55)
--- NOTE | 2021-01-31 12:30 | Progress Note ---
Assessment and Plan 60 y/o male with ARDS secondary most likely to COVID 19 pneumonia. 01/31/21: Progressive PaCO2 retention with resp and metabolic acidosis. Currently on PEEP 16. R/R waas increased to 28 this am. Also has increasing K, Na, BUN and Cr levels. on free water thru NG. Kayexalate was given this am. Will try to decrease PEEP in hope to lower PaCO2. Wean FiO2 PaO2 was 142 this am. 01/30/21: Will plan for proning later today. Goal will be at least 12hrs but long is okay. Speaking with pharmacy to see if we can get paralytic for a longer period of time. Regardless will prone. Continue heavy sedation. BP stable. Continue steroids. Very very guarded prognosis. 01/29/21: will increase tidal volume and/or increase respiratory rate. Repeat ABG this afternoon. Continue paralytic and adequate sedation. Continue steroid and remdesivir, follow up any renal recs. Prognosis remains guarded. Wean Fio2 for sats >88% 01/28/21: Increased PEEP to 16. Will paralyze patient today and increase sedation. Ordering picc line for possible vasopressor therapy needs. Continue BID steroids. Renal function is slightly better today with fluids but could be making oxygenation worse. Not able to diurese. Still making urine. Continue Remdesivir. Watch for fever curve. If not improvement in the next 24 hours with paralyzing, will prone tomorrow morning. 01/27/21: Continue PEEP at 14. No weaning until FiO2 is at or below 40-45%. Continue anticoagulation. Getting Remdesivir now. Continue BID steroids. Renal has increased the fluids. Monitor urine output and renal function. Overall prognosis is very very guarded, especially if renal status worsens. 01/26/21: Increase PEEP to 14. Will add Precedex therapy. If patient does not respond to increases in PEEP may need to prone. Will place patient on lovenox and will feed patient. Remdesivir coming. Continue BID steroids. Prognosis is guarded. 01/25/21: Hold on proning today. Continue BID steroids. ABG this AM was adequate. Pending abg tomorrow, may increase PEEP if not able to wean FiO2 any further. Per charting Remdesivir to arrive tomorrow. Guarded prognosis. 3/27/21: Continue BID steroids. No abg done this am but able to wean FiO2. Will obtain ABG in the am. Hold on proning for right now. Renal following, would like to diurese but they are given fluids for deisi. Agree with ID assessment and note. Guarded prognosis. 1. Increase steroids to BID given size 2. Check with ID to see if he is a candidate for remdesivir or any other experiemental therapy 3. Hold on proning for right now 4. Renal consulted and giving IVF's currently Guarded prognosis. CCT 31 minutes. Subjective Date of service: 01/31/21 Principal diagnosis: DEISI Interval history: No change. Remain hypoxic now on 90%. currently staying prone. Sedated and paralyzed Objective Vital Signs - 12hr 01/31/21 01/31/21 01/31/21 00:30 00:45 01:00 Temperature Pulse Rate 79 79 78 Pulse Rate [ From Monitor] Respiratory 24 24 24 Rate Blood Pressure 115/68 117/68 115/67 O2 Sat by Pulse 96 96 96 Oximetry 01/31/21 01/31/21 01/31/21 01:15 01:30 01:45 Temperature Pulse Rate 78 78 77 Pulse Rate [ From Monitor] Respiratory 24 24 24 Rate Blood Pressure 114/70 109/65 105/61 O2 Sat by Pulse 96 96 96 Oximetry 01/31/21 01/31/21 01/31/21 02:00 02:15 02:30 Temperature Pulse Rate 78 78 78 Pulse Rate [ From Monitor] Respiratory 24 24 24 Rate Blood Pressure 104/59 106/64 111/62 O2 Sat by Pulse 96 96 96 Oximetry 01/31/21 01/31/21 01/31/21 02:45 03:00 03:15 Temperature Pulse Rate 78 77 77 Pulse Rate [ From Monitor] Respiratory 24 24 24 Rate Blood Pressure 112/64 113/68 114/63 O2 Sat by Pulse 96 96 96 Oximetry 01/31/21 01/31/21 01/31/21 03:30 03:42 03:45 Temperature 99.1 F Pulse Rate 77 77 Pulse Rate [ From Monitor] Respiratory 24 24 Rate Blood Pressure 115/63 116/64 O2 Sat by Pulse 96 96 Oximetry 01/31/21 01/31/21 01/31/21 04:00 04:15 04:26 Temperature Pulse Rate 76 76 76 Pulse Rate [ 76 From Monitor] Respiratory 24 24 Rate Blood Pressure 117/68 119/64 119/64 O2 Sat by Pulse 96 96 96 Oximetry 01/31/21 01/31/21 01/31/21 04:30 04:45 05:00 Temperature Pulse Rate 76 76 76 Pulse Rate [ From Monitor] Respiratory 24 24 24 Rate Blood Pressure 120/65 118/63 119/63 O2 Sat by Pulse 96 96 96 Oximetry 01/31/21 01/31/21 01/31/21 05:15 05:30 05:45 Temperature Pulse Rate 76 76 76 Pulse Rate [ From Monitor] Respiratory 24 24 24 Rate Blood Pressure 120/65 118/63 117/63 O2 Sat by Pulse 96 96 97 Oximetry 01/31/21 01/31/21 01/31/21 06:00 06:15 06:30 Temperature Pulse Rate 76 77 77 Pulse Rate [ From Monitor] Respiratory 24 24 28 H Rate Blood Pressure 120/63 117/65 122/64 O2 Sat by Pulse 97 95 95 Oximetry 01/31/21 01/31/21 01/31/21 06:45 07:00 07:15 Temperature Pulse Rate 76 76 76 Pulse Rate [ From Monitor] Respiratory 28 H 28 H 28 H Rate Blood Pressure 123/67 123/66 123/65 O2 Sat by Pulse 94 94 95 Oximetry 01/31/21 01/31/21 01/31/21 07:30 07:45 07:59 Temperature Pulse Rate 76 75 74 Pulse Rate [ From Monitor] Respiratory 28 H 28 H Rate Blood Pressure 122/65 121/68 123/69 O2 Sat by Pulse 95 95 95 Oximetry 01/31/21 01/31/21 01/31/21 08:00 08:15 08:30 Temperature 98.7 F Pulse Rate 74 74 74 Pulse Rate [ From Monitor] Respiratory 28 H 28 H 28 H Rate Blood Pressure 123/69 124/68 124/66 O2 Sat by Pulse 94 95 95 Oximetry 01/31/21 01/31/21 01/31/21 08:45 09:00 09:15 Temperature Pulse Rate 73 73 73 Pulse Rate [ From Monitor] Respiratory 28 H 28 H 28 H Rate Blood Pressure 124/70 121/70 119/68 O2 Sat by Pulse 95 95 94 Oximetry 01/31/21 01/31/21 01/31/21 09:30 09:45 10:00 Temperature Pulse Rate 73 74 75 Pulse Rate [ From Monitor] Respiratory 28 H 28 H 28 H Rate Blood Pressure 118/65 120/64 120/67 O2 Sat by Pulse 94 94 93 Oximetry 01/31/21 01/31/21 01/31/21 10:15 10:30 11:40 Temperature Pulse Rate 77 83 83 Pulse Rate [ From Monitor] Respiratory 28 H 28 H Rate Blood Pressure 123/66 122/64 128/65 O2 Sat by Pulse 93 93 92 Oximetry 01/31/21 12:00 Temperature 99 F Pulse Rate Pulse Rate [ From Monitor] Respiratory Rate Blood Pressure O2 Sat by Pulse Oximetry CBC and BMP: 01/30/21 05:00 01/31/21 04:00 ABG, PT/INR, D-dimer: ABG ABG pH 7.161 pH Units (7.350-7.450) L* 01/31/21 04:40 POC ABG pCO2 69.7 mmHg (32.0-48.0) H 01/30/21 04:24 ABG pCO2 81.0 mm Hg 01/31/21 04:40 POC ABG pO2 61.0 mmHg (83-108) L 01/30/21 04:24 ABG pO2 142.2 mm Hg (80.0-90.0) H 01/31/21 04:40 POC ABG HCO3 28.9 01/30/21 04:24 ABG O2 Saturation 98.2 % (95.0-99.0) 01/31/21 04:40 PT/INR, D-dimer D-Dimer > 80123 ng/mlDDU (0-234) H 01/30/21 04:00 Abnormal lab findings: Abnormal Labs 01/22/21 01/22/21 01/22/21 22:39 22:57 22:57 WBC RBC Hgb Hct MCV MCH MCHC RDW Lymph % (Auto) 6.6 L Lymph # (Auto) 0.5 L Seg Neutrophils % 87.6 H Seg Neuts % (Manual) Lymphocytes % (Manual) Seg Neutrophils # Man Lymphocytes # (Manual) D-Dimer ABG pH POC ABG pCO2 POC ABG pO2 ABG pO2 ABG HCO3 ABG Base Excess ABG Oxyhemoglobin ABG Sodium ABG Potassium ABG Chloride ABG Glucose Carboxyhemoglobin Sodium 129 L Potassium 3.4 L Chloride 90.4 L Carbon Dioxide BUN 34 H Creatinine 1.5 H Glucose 146 H POC Glucose Lactic Acid Calcium 7.8 L Magnesium Ferritin Total Bilirubin AST 75 H ALT 57 H Lactate Dehydrogenase C-Reactive Protein Albumin 2.9 L Triglycerides Arterial Blood Glucose Arterial Blood Ionized Calcium Urine Creatinine 301.2 H Coronavirus (PCR) 01/22/21 01/22/21 01/22/21 22:57 22:57 22:57 WBC RBC Hgb Hct MCV MCH MCHC RDW Lymph % (Auto) Lymph # (Auto) Seg Neutrophils % Seg Neuts % (Manual) Lymphocytes % (Manual) Seg Neutrophils # Man Lymphocytes # (Manual) D-Dimer 1173.89 H ABG pH POC ABG pCO2 POC ABG pO2 ABG pO2 ABG HCO3 ABG Base Excess ABG Oxyhemoglobin ABG Sodium ABG Potassium ABG Chloride ABG Glucose Carboxyhemoglobin Sodium Potassium Chloride Carbon Dioxide BUN Creatinine Glucose 149 H POC Glucose Lactic Acid 2.10 H* Calcium Magnesium Ferritin Total Bilirubin AST ALT Lactate Dehydrogenase 685 H C-Reactive Protein 30.40 H Albumin Triglycerides Arterial Blood Glucose Arterial Blood Ionized Calcium Urine Creatinine Coronavirus (PCR) 01/22/21 01/23/21 01/23/21 22:57 08:41 10:01 WBC RBC Hgb Hct MCV MCH MCHC RDW Lymph % (Auto) Lymph # (Auto) Seg Neutrophils % Seg Neuts % (Manual) Lymphocytes % (Manual) Seg Neutrophils # Man Lymphocytes # (Manual) D-Dimer ABG pH POC ABG pCO2 POC ABG pO2 ABG pO2 ABG HCO3 ABG Base Excess ABG Oxyhemoglobin ABG Sodium ABG Potassium ABG Chloride ABG Glucose Carboxyhemoglobin Sodium 131 L Potassium Chloride 88.7 L Carbon Dioxide 18 L BUN 36 H Creatinine 1.6 H Glucose 147 H POC Glucose Lactic Acid Calcium 7.5 L Magnesium Ferritin 1207.0 H Total Bilirubin AST ALT Lactate Dehydrogenase C-Reactive Protein Albumin Triglycerides Arterial Blood Glucose Arterial Blood Ionized Calcium Urine Creatinine Coronavirus (PCR) Positive A 01/23/21 01/23/21 01/24/21 20:49 Unknown 00:10 WBC RBC Hgb Hct MCV MCH MCHC RDW Lymph % (Auto) Lymph # (Auto) Seg Neutrophils % Seg Neuts % (Manual) Lymphocytes % (Manual) Seg Neutrophils # Man Lymphocytes # (Manual) D-Dimer ABG pH POC ABG pCO2 POC ABG pO2 ABG pO2 165.4 H ABG HCO3 ABG Base Excess -2.5 L ABG Oxyhemoglobin ABG Sodium ABG Potassium ABG Chloride ABG Glucose Carboxyhemoglobin Sodium 130 L Potassium Chloride 91.0 L Carbon Dioxide 20 L BUN 52 H Creatinine 3.8 H D Glucose 150 H POC Glucose 125 H Lactic Acid Calcium 8.0 L Magnesium Ferritin Total Bilirubin AST 42 H ALT Lactate Dehydrogenase C-Reactive Protein Albumin 2.4 L Triglycerides Arterial Blood Glucose Arterial Blood Ionized Calcium Urine Creatinine Coronavirus (PCR) 01/24/21 01/24/21 01/24/21 05:05 05:05 05:05 WBC 14.0 H RBC Hgb Hct MCV 95 H MCH 33 H MCHC RDW Lymph % (Auto) Lymph # (Auto) Seg Neutrophils % Seg Neuts % (Manual) 91.0 H Lymphocytes % (Manual) 4.0 L Seg Neutrophils # Man 12.7 H Lymphocytes # (Manual) 0.6 L D-Dimer 6159.48 H ABG pH POC ABG pCO2 POC ABG pO2 ABG pO2 ABG HCO3 ABG Base Excess ABG Oxyhemoglobin ABG Sodium ABG Potassium ABG Chloride ABG Glucose Carboxyhemoglobin Sodium Potassium Chloride Carbon Dioxide BUN Creatinine Glucose POC Glucose Lactic Acid Calcium Magnesium Ferritin 1178.0 H Total Bilirubin AST ALT Lactate Dehydrogenase C-Reactive Protein Albumin Triglycerides Arterial Blood Glucose Arterial Blood Ionized Calcium Urine Creatinine Coronavirus (PCR) 01/24/21 01/24/21 01/24/21 05:05 05:05 05:05 WBC RBC Hgb Hct MCV MCH MCHC RDW Lymph % (Auto) Lymph # (Auto) Seg Neutrophils % Seg Neuts % (Manual) Lymphocytes % (Manual) Seg Neutrophils # Man Lymphocytes # (Manual) D-Dimer ABG pH POC ABG pCO2 POC ABG pO2 ABG pO2 ABG HCO3 ABG Base Excess ABG Oxyhemoglobin ABG Sodium ABG Potassium ABG Chloride ABG Glucose Carboxyhemoglobin Sodium 132 L Potassium Chloride 93.1 L Carbon Dioxide 21 L BUN 57 H Creatinine 3.7 H Glucose 133 H POC Glucose Lactic Acid 2.20 H* Calcium 7.7 L Magnesium Ferritin Total Bilirubin AST ALT Lactate Dehydrogenase 658 H C-Reactive Protein 33.20 H Albumin 2.4 L Triglycerides Arterial Blood Glucose Arterial Blood Ionized Calcium Urine Creatinine Coronavirus (PCR) 01/24/21 01/24/21 01/24/21 05:34 06:00 17:35 WBC RBC Hgb Hct MCV MCH MCHC RDW Lymph % (Auto) Lymph # (Auto) Seg Neutrophils % Seg Neuts % (Manual) Lymphocytes % (Manual) Seg Neutrophils # Man Lymphocytes # (Manual) D-Dimer ABG pH POC ABG pCO2 POC ABG pO2 ABG pO2 ABG HCO3 ABG Base Excess ABG Oxyhemoglobin ABG Sodium ABG Potassium ABG Chloride ABG Glucose Carboxyhemoglobin Sodium Potassium Chloride Carbon Dioxide BUN Creatinine Glucose POC Glucose 136 H 137 H Lactic Acid Calcium Magnesium 2.80 H Ferritin Total Bilirubin AST ALT Lactate Dehydrogenase C-Reactive Protein Albumin Triglycerides Arterial Blood Glucose Arterial Blood Ionized Calcium Urine Creatinine Coronavirus (PCR) 01/25/21 01/25/21 01/25/21 04:15 05:40 05:40 WBC RBC Hgb Hct MCV 95 H MCH 33 H MCHC 35 H RDW Lymph % (Auto) Lymph # (Auto) Seg Neutrophils % Seg Neuts % (Manual) 95.0 H Lymphocytes % (Manual) 3.0 L Seg Neutrophils # Man 7.8 H Lymphocytes # (Manual) 0.2 L D-Dimer ABG pH POC ABG pCO2 POC ABG pO2 63.2 L ABG pO2 ABG HCO3 ABG Base Excess ABG Oxyhemoglobin 89.6 L ABG Sodium ABG Potassium ABG Chloride ABG Glucose 165 H Carboxyhemoglobin 0.3 L Sodium Potassium Chloride Carbon Dioxide BUN 67 H Creatinine 3.4 H Glucose 153 H POC Glucose Lactic Acid Calcium 7.5 L Magnesium Ferritin Total Bilirubin 1.40 H AST 62 H ALT Lactate Dehydrogenase C-Reactive Protein Albumin 2.6 L Triglycerides Arterial Blood Glucose 165 H Arterial Blood Ionized Calcium 4.3 L Urine Creatinine Coronavirus (PCR) 01/25/21 01/25/21 01/25/21 05:59 12:00 17:17 WBC RBC Hgb Hct MCV MCH MCHC RDW Lymph % (Auto) Lymph # (Auto) Seg Neutrophils % Seg Neuts % (Manual) Lymphocytes % (Manual) Seg Neutrophils # Man Lymphocytes # (Manual) D-Dimer ABG pH POC ABG pCO2 POC ABG pO2 ABG pO2 ABG HCO3 ABG Base Excess ABG Oxyhemoglobin ABG Sodium ABG Potassium ABG Chloride ABG Glucose Carboxyhemoglobin Sodium Potassium Chloride Carbon Dioxide BUN Creatinine Glucose POC Glucose 140 H 143 H 149 H Lactic Acid Calcium Magnesium Ferritin Total Bilirubin AST ALT Lactate Dehydrogenase C-Reactive Protein Albumin Triglycerides Arterial Blood Glucose Arterial Blood Ionized Calcium Urine Creatinine Coronavirus (PCR) 01/25/21 01/26/21 01/26/21 23:41 03:43 05:46 WBC RBC Hgb Hct MCV MCH MCHC RDW Lymph % (Auto) Lymph # (Auto) Seg Neutrophils % Seg Neuts % (Manual) Lymphocytes % (Manual) Seg Neutrophils # Man Lymphocytes # (Manual) D-Dimer ABG pH POC ABG pCO2 POC ABG pO2 70.0 L ABG pO2 ABG HCO3 ABG Base Excess ABG Oxyhemoglobin 91.9 L ABG Sodium ABG Potassium ABG Chloride 109.0 H ABG Glucose 165 H Carboxyhemoglobin Sodium Potassium Chloride Carbon Dioxide BUN Creatinine Glucose POC Glucose 132 H 161 H Lactic Acid Calcium Magnesium Ferritin Total Bilirubin AST ALT Lactate Dehydrogenase C-Reactive Protein Albumin Triglycerides Arterial Blood Glucose 165 H Arterial Blood Ionized Calcium 4.5 L Urine Creatinine Coronavirus (PCR) 01/26/21 01/26/21 01/26/21 05:47 05:47 05:47 WBC RBC Hgb Hct 35.3 L MCV 96 H MCH 33 H MCHC RDW Lymph % (Auto) Lymph # (Auto) Seg Neutrophils % Seg Neuts % (Manual) 96.0 H Lymphocytes % (Manual) 2.0 L Seg Neutrophils # Man Lymphocytes # (Manual) 0.1 L D-Dimer > 19629 H ABG pH POC ABG pCO2 POC ABG pO2 ABG pO2 ABG HCO3 ABG Base Excess ABG Oxyhemoglobin ABG Sodium ABG Potassium ABG Chloride ABG Glucose Carboxyhemoglobin Sodium Potassium Chloride Carbon Dioxide BUN 57 H Creatinine 2.2 H Glucose 185 H POC Glucose Lactic Acid Calcium 8.1 L Magnesium Ferritin Total Bilirubin AST ALT Lactate Dehydrogenase C-Reactive Protein Albumin Triglycerides Arterial Blood Glucose Arterial Blood Ionized Calcium Urine Creatinine Coronavirus (PCR) 01/26/21 01/26/21 01/26/21 05:47 05:47 05:47 WBC RBC Hgb Hct MCV MCH MCHC RDW Lymph % (Auto) Lymph # (Auto) Seg Neutrophils % Seg Neuts % (Manual) Lymphocytes % (Manual) Seg Neutrophils # Man Lymphocytes # (Manual) D-Dimer ABG pH POC ABG pCO2 POC ABG pO2 ABG pO2 ABG HCO3 ABG Base Excess ABG Oxyhemoglobin ABG Sodium ABG Potassium ABG Chloride ABG Glucose Carboxyhemoglobin Sodium Potassium Chloride 107.1 H Carbon Dioxide BUN 56 H Creatinine 2.2 H Glucose 188 H POC Glucose Lactic Acid Calcium 8.0 L Magnesium Ferritin 1178.0 H Total Bilirubin 1.50 H AST ALT Lactate Dehydrogenase 588 H C-Reactive Protein 40.10 H Albumin 2.2 L Triglycerides Arterial Blood Glucose Arterial Blood Ionized Calcium Urine Creatinine Coronavirus (PCR) 01/26/21 01/26/21 01/26/21 11:34 18:17 23:20 WBC RBC Hgb Hct MCV MCH MCHC RDW Lymph % (Auto) Lymph # (Auto) Seg Neutrophils % Seg Neuts % (Manual) Lymphocytes % (Manual) Seg Neutrophils # Man Lymphocytes # (Manual) D-Dimer ABG pH POC ABG pCO2 POC ABG pO2 ABG pO2 ABG HCO3 ABG Base Excess ABG Oxyhemoglobin ABG Sodium ABG Potassium ABG Chloride ABG Glucose Carboxyhemoglobin Sodium Potassium Chloride Carbon Dioxide BUN Creatinine Glucose POC Glucose 129 H 205 H 155 H Lactic Acid Calcium Magnesium Ferritin Total Bilirubin AST ALT Lactate Dehydrogenase C-Reactive Protein Albumin Triglycerides Arterial Blood Glucose Arterial Blood Ionized Calcium Urine Creatinine Coronavirus (PCR) 01/27/21 01/27/21 01/27/21 02:45 05:29 05:29 WBC RBC 3.58 L Hgb 11.7 L Hct 34.9 L MCV 97 H MCH 33 H MCHC RDW Lymph % (Auto) Lymph # (Auto) Seg Neutrophils % Seg Neuts % (Manual) 88.0 H Lymphocytes % (Manual) 7.0 L Seg Neutrophils # Man Lymphocytes # (Manual) 0.5 L D-Dimer ABG pH 7.319 L POC ABG pCO2 50.7 H POC ABG pO2 63.0 L ABG pO2 ABG HCO3 ABG Base Excess ABG Oxyhemoglobin ABG Sodium 145.2 H ABG Potassium 5.1 H ABG Chloride 114.0 H ABG Glucose 178 H Carboxyhemoglobin Sodium Potassium Chloride Carbon Dioxide BUN Creatinine Glucose POC Glucose Lactic Acid Calcium Magnesium 4.00 H Ferritin Total Bilirubin AST ALT Lactate Dehydrogenase C-Reactive Protein Albumin Triglycerides Arterial Blood Glucose 178 H Arterial Blood Ionized Calcium Urine Creatinine Coronavirus (PCR) 01/27/21 01/27/21 01/27/21 05:29 05:29 05:31 WBC RBC Hgb Hct MCV MCH MCHC RDW Lymph % (Auto) Lymph # (Auto) Seg Neutrophils % Seg Neuts % (Manual) Lymphocytes % (Manual) Seg Neutrophils # Man Lymphocytes # (Manual) D-Dimer ABG pH POC ABG pCO2 POC ABG pO2 ABG pO2 ABG HCO3 ABG Base Excess ABG Oxyhemoglobin ABG Sodium ABG Potassium ABG Chloride ABG Glucose Carboxyhemoglobin Sodium Potassium 5.2 H Chloride 109.6 H Carbon Dioxide BUN 67 H Creatinine 2.8 H Glucose 195 H POC Glucose 176 H Lactic Acid Calcium 7.9 L Magnesium Ferritin Total Bilirubin AST ALT Lactate Dehydrogenase C-Reactive Protein Albumin Triglycerides 160 H Arterial Blood Glucose Arterial Blood Ionized Calcium Urine Creatinine Coronavirus (PCR) 01/27/21 01/27/21 01/27/21 11:27 18:08 23:30 WBC RBC Hgb Hct MCV MCH MCHC RDW Lymph % (Auto) Lymph # (Auto) Seg Neutrophils % Seg Neuts % (Manual) Lymphocytes % (Manual) Seg Neutrophils # Man Lymphocytes # (Manual) D-Dimer ABG pH POC ABG pCO2 POC ABG pO2 ABG pO2 ABG HCO3 ABG Base Excess ABG Oxyhemoglobin ABG Sodium ABG Potassium ABG Chloride ABG Glucose Carboxyhemoglobin Sodium Potassium Chloride Carbon Dioxide BUN Creatinine Glucose POC Glucose 189 H 212 H 175 H Lactic Acid Calcium Magnesium Ferritin Total Bilirubin AST ALT Lactate Dehydrogenase C-Reactive Protein Albumin Triglycerides Arterial Blood Glucose Arterial Blood Ionized Calcium Urine Creatinine Coronavirus (PCR) 01/28/21 01/28/21 01/28/21 03:58 04:00 04:00 WBC RBC Hgb Hct MCV MCH MCHC RDW Lymph % (Auto) Lymph # (Auto) Seg Neutrophils % Seg Neuts % (Manual) Lymphocytes % (Manual) Seg Neutrophils # Man Lymphocytes # (Manual) D-Dimer > 79532 H ABG pH POC ABG pCO2 POC ABG pO2 52.9 L ABG pO2 ABG HCO3 ABG Base Excess ABG Oxyhemoglobin 84.1 L ABG Sodium 148.9 H ABG Potassium ABG Chloride 117.0 H ABG Glucose 194 H Carboxyhemoglobin Sodium Potassium Chloride Carbon Dioxide BUN Creatinine Glucose POC Glucose Lactic Acid Calcium Magnesium Ferritin Total Bilirubin AST ALT Lactate Dehydrogenase 679 H C-Reactive Protein 17.10 H Albumin Triglycerides Arterial Blood Glucose 194 H Arterial Blood Ionized Calcium Urine Creatinine Coronavirus (PCR) 01/28/21 01/28/21 01/28/21 04:00 05:00 06:00 WBC RBC 3.59 L Hgb 11.6 L Hct 34.8 L MCV 97 H MCH MCHC RDW Lymph % (Auto) Lymph # (Auto) Seg Neutrophils % Seg Neuts % (Manual) 96.0 H Lymphocytes % (Manual) 3.0 L Seg Neutrophils # Man Lymphocytes # (Manual) 0.2 L D-Dimer ABG pH POC ABG pCO2 POC ABG pO2 ABG pO2 ABG HCO3 ABG Base Excess ABG Oxyhemoglobin ABG Sodium ABG Potassium ABG Chloride ABG Glucose Carboxyhemoglobin Sodium Potassium Chloride Carbon Dioxide BUN Creatinine Glucose POC Glucose 159 H Lactic Acid Calcium Magnesium Ferritin 798.0 H Total Bilirubin AST ALT Lactate Dehydrogenase C-Reactive Protein Albumin Triglycerides Arterial Blood Glucose Arterial Blood Ionized Calcium Urine Creatinine Coronavirus (PCR) 01/28/21 01/28/21 01/28/21 06:00 06:00 08:12 WBC RBC Hgb Hct MCV MCH MCHC RDW Lymph % (Auto) Lymph # (Auto) Seg Neutrophils % Seg Neuts % (Manual) Lymphocytes % (Manual) Seg Neutrophils # Man Lymphocytes # (Manual) D-Dimer ABG pH POC ABG pCO2 POC ABG pO2 ABG pO2 ABG HCO3 ABG Base Excess ABG Oxyhemoglobin ABG Sodium ABG Potassium ABG Chloride ABG Glucose Carboxyhemoglobin Sodium Potassium Chloride 111.9 H Carbon Dioxide BUN 59 H Creatinine 2.2 H Glucose 189 H POC Glucose 181 H Lactic Acid Calcium 8.1 L Magnesium 3.20 H Ferritin Total Bilirubin AST ALT Lactate Dehydrogenase C-Reactive Protein Albumin Triglycerides Arterial Blood Glucose Arterial Blood Ionized Calcium Urine Creatinine Coronavirus (PCR) 01/28/21 01/28/21 01/28/21 12:03 16:43 23:51 WBC RBC Hgb Hct MCV MCH MCHC RDW Lymph % (Auto) Lymph # (Auto) Seg Neutrophils % Seg Neuts % (Manual) Lymphocytes % (Manual) Seg Neutrophils # Man Lymphocytes # (Manual) D-Dimer ABG pH POC ABG pCO2 POC ABG pO2 ABG pO2 ABG HCO3 ABG Base Excess ABG Oxyhemoglobin ABG Sodium ABG Potassium ABG Chloride ABG Glucose Carboxyhemoglobin Sodium Potassium Chloride Carbon Dioxide BUN Creatinine Glucose POC Glucose 164 H 198 H 196 H Lactic Acid Calcium Magnesium Ferritin Total Bilirubin AST ALT Lactate Dehydrogenase C-Reactive Protein Albumin Triglycerides Arterial Blood Glucose Arterial Blood Ionized Calcium Urine Creatinine Coronavirus (PCR) 01/29/21 01/29/21 01/29/21 05:00 05:23 06:00 WBC RBC Hgb Hct MCV MCH MCHC RDW Lymph % (Auto) Lymph # (Auto) Seg Neutrophils % Seg Neuts % (Manual) Lymphocytes % (Manual) Seg Neutrophils # Man Lymphocytes # (Manual) D-Dimer ABG pH 7.119 L POC ABG pCO2 87.1 H POC ABG pO2 ABG pO2 ABG HCO3 ABG Base Excess ABG Oxyhemoglobin ABG Sodium 152.5 H ABG Potassium 5.7 H ABG Chloride 120.0 H ABG Glucose 217 H Carboxyhemoglobin Sodium 151 H Potassium 5.9 H D Chloride 117.8 H Carbon Dioxide BUN 54 H Creatinine 2.2 H Glucose 208 H POC Glucose 180 H Lactic Acid Calcium 7.9 L Magnesium Ferritin Total Bilirubin AST ALT Lactate Dehydrogenase C-Reactive Protein Albumin Triglycerides Arterial Blood Glucose 217 H Arterial Blood Ionized Calcium Urine Creatinine Coronavirus (PCR) 01/29/21 01/29/21 01/29/21 12:29 17:28 18:05 WBC RBC Hgb Hct MCV MCH MCHC RDW Lymph % (Auto) Lymph # (Auto) Seg Neutrophils % Seg Neuts % (Manual) Lymphocytes % (Manual) Seg Neutrophils # Man Lymphocytes # (Manual) D-Dimer ABG pH POC ABG pCO2 POC ABG pO2 ABG pO2 ABG HCO3 ABG Base Excess ABG Oxyhemoglobin ABG Sodium ABG Potassium ABG Chloride ABG Glucose Carboxyhemoglobin Sodium 151 H Potassium 5.5 H Chloride 118.2 H Carbon Dioxide BUN 52 H Creatinine 2.2 H Glucose 224 H POC Glucose 181 H 203 H Lactic Acid Calcium 8.0 L Magnesium Ferritin Total Bilirubin AST ALT Lactate Dehydrogenase C-Reactive Protein Albumin Triglycerides Arterial Blood Glucose Arterial Blood Ionized Calcium Urine Creatinine Coronavirus (PCR) 01/29/21 01/29/21 01/29/21 18:13 23:34 Unknown WBC RBC Hgb Hct MCV 101 H MCH MCHC RDW 15.7 H Lymph % (Auto) Lymph # (Auto) Seg Neutrophils % Seg Neuts % (Manual) 95.0 H Lymphocytes % (Manual) 3.0 L Seg Neutrophils # Man 8.0 H Lymphocytes # (Manual) 0.3 L D-Dimer ABG pH 7.223 L POC ABG pCO2 64.8 H POC ABG pO2 63.6 L ABG pO2 ABG HCO3 ABG Base Excess ABG Oxyhemoglobin 89.4 L ABG Sodium 152.9 H ABG Potassium 5.3 H ABG Chloride 121.0 H ABG Glucose 227 H Carboxyhemoglobin Sodium Potassium Chloride Carbon Dioxide BUN Creatinine Glucose POC Glucose 198 H Lactic Acid Calcium Magnesium Ferritin Total Bilirubin AST ALT Lactate Dehydrogenase C-Reactive Protein Albumin Triglycerides Arterial Blood Glucose 227 H Arterial Blood Ionized Calcium Urine Creatinine Coronavirus (PCR) 01/30/21 01/30/21 01/30/21 04:00 04:00 04:00 WBC RBC Hgb Hct MCV MCH MCHC RDW Lymph % (Auto) Lymph # (Auto) Seg Neutrophils % Seg Neuts % (Manual) Lymphocytes % (Manual) Seg Neutrophils # Man Lymphocytes # (Manual) D-Dimer > 57964 H ABG pH POC ABG pCO2 POC ABG pO2 ABG pO2 ABG HCO3 ABG Base Excess ABG Oxyhemoglobin ABG Sodium ABG Potassium ABG Chloride ABG Glucose Carboxyhemoglobin Sodium Potassium Chloride Carbon Dioxide BUN Creatinine Glucose 234 H POC Glucose Lactic Acid Calcium Magnesium Ferritin 763.9 H Total Bilirubin AST ALT Lactate Dehydrogenase 424 H C-Reactive Protein 23.90 H Albumin Triglycerides Arterial Blood Glucose Arterial Blood Ionized Calcium Urine Creatinine Coronavirus (PCR) 01/30/21 01/30/21 01/30/21 04:24 05:00 05:16 WBC RBC 3.57 L Hgb 11.3 L Hct 35.4 L MCV 99 H MCH MCHC RDW 15.6 H Lymph % (Auto) Lymph # (Auto) Seg Neutrophils % Seg Neuts % (Manual) 97.0 H Lymphocytes % (Manual) 1.0 L Seg Neutrophils # Man 8.6 H Lymphocytes # (Manual) 0.1 L D-Dimer ABG pH 7.235 L POC ABG pCO2 69.7 H POC ABG pO2 61.0 L ABG pO2 ABG HCO3 ABG Base Excess ABG Oxyhemoglobin 89 L ABG Sodium 154.2 H ABG Potassium 5.4 H ABG Chloride 121.0 H ABG Glucose 247 H Carboxyhemoglobin Sodium Potassium Chloride Carbon Dioxide BUN Creatinine Glucose POC Glucose 238 H Lactic Acid Calcium Magnesium Ferritin Total Bilirubin AST ALT Lactate Dehydrogenase C-Reactive Protein Albumin Triglycerides Arterial Blood Glucose 247 H Arterial Blood Ionized Calcium Urine Creatinine Coronavirus (PCR) 01/30/21 01/30/21 01/30/21 06:00 11:28 18:49 WBC RBC Hgb Hct MCV MCH MCHC RDW Lymph % (Auto) Lymph # (Auto) Seg Neutrophils % Seg Neuts % (Manual) Lymphocytes % (Manual) Seg Neutrophils # Man Lymphocytes # (Manual) D-Dimer ABG pH POC ABG pCO2 POC ABG pO2 ABG pO2 ABG HCO3 ABG Base Excess ABG Oxyhemoglobin ABG Sodium ABG Potassium ABG Chloride ABG Glucose Carboxyhemoglobin Sodium 152 H Potassium 5.3 H Chloride 120.5 H Carbon Dioxide BUN 50 H Creatinine 2.3 H Glucose 239 H POC Glucose 153 H 220 H Lactic Acid Calcium 8.2 L Magnesium 2.60 H Ferritin Total Bilirubin AST ALT Lactate Dehydrogenase C-Reactive Protein Albumin Triglycerides 293 H Arterial Blood Glucose Arterial Blood Ionized Calcium Urine Creatinine Coronavirus (PCR) 01/30/21 01/31/21 01/31/21 23:06 04:00 04:40 WBC RBC Hgb Hct MCV MCH MCHC RDW Lymph % (Auto) Lymph # (Auto) Seg Neutrophils % Seg Neuts % (Manual) Lymphocytes % (Manual) Seg Neutrophils # Man Lymphocytes # (Manual) D-Dimer ABG pH 7.161 L* POC ABG pCO2 POC ABG pO2 ABG pO2 142.2 H ABG HCO3 28.3 H ABG Base Excess -3.2 L ABG Oxyhemoglobin ABG Sodium ABG Potassium ABG Chloride ABG Glucose Carboxyhemoglobin Sodium 156 H Potassium 5.9 H Chloride 122.6 H Carbon Dioxide BUN 61 H Creatinine 3.2 H Glucose 205 H POC Glucose 192 H Lactic Acid Calcium 8.0 L Magnesium Ferritin Total Bilirubin AST ALT Lactate Dehydrogenase C-Reactive Protein Albumin Triglycerides Arterial Blood Glucose Arterial Blood Ionized Calcium Urine Creatinine Coronavirus (PCR) 01/31/21 01/31/21 05:17 11:33 WBC RBC Hgb Hct MCV MCH MCHC RDW Lymph % (Auto) Lymph # (Auto) Seg Neutrophils % Seg Neuts % (Manual) Lymphocytes % (Manual) Seg Neutrophils # Man Lymphocytes # (Manual) D-Dimer ABG pH POC ABG pCO2 POC ABG pO2 ABG pO2 ABG HCO3 ABG Base Excess ABG Oxyhemoglobin ABG Sodium ABG Potassium ABG Chloride ABG Glucose Carboxyhemoglobin Sodium Potassium Chloride Carbon Dioxide BUN Creatinine Glucose POC Glucose 200 H 167 H Lactic Acid Calcium Magnesium Ferritin Total Bilirubin AST ALT Lactate Dehydrogenase C-Reactive Protein Albumin Triglycerides Arterial Blood Glucose Arterial Blood Ionized Calcium Urine Creatinine Coronavirus (PCR)
[2021-01-31 12:54] LABS: Creatinine 24 Hour,Urine 1.2 (0.8-2.8)
[2021-01-31 14:28] LABS: ABG Base Excess -2.7 mmol/L (-2.0-3.0); ABG HCO3 26.5 mmol/L (20.0-26.0); ABG Methemoglobin 0.6 % (0.0-1.5); ABG Oxygen Saturation 95.7 % (95.0-99.0); ABG PCO2 68.6 mm Hg; ABG PH 7.205 pH Units (7.350-7.450); ABG PO2 90.9 mm Hg (80.0-90.0)
[2021-01-31] MEDS ORDERED: VANCOMYCIN 1,750 MG in SODIUM CHLORIDE 0.9% 500 ML 500 ML IV ONE (22:00)
--- NOTE | 2021-01-31 23:05 | Progress Note ---
Assessment and Plan Assessment and Plan Assessment and plan: Sepsis -Patient is febrile, COVID-19 pneumonia, acute kidney injury, leukocytosis -Antibiotic therapy -ID consulted, appreciate recommendations -01/22 tracheal aspirate with normal respiratory dillon -01/22 blood cultures x2 with no growth to date -01/30 blood culture x2 with no growth after 48 hours -01/30 tracheal aspirate with few gram-positive cocci COVID-19 PNA -COVID-19 PCR positive -Pneumonia on CXR -Antibiotic therapy -Infectious disease consulted, appreciate recommendations -Contact/droplet precautions -Steroid therapy, s/p remdesivir Acute hypoxic respiratory failure -CCM consulted, appreciate recommendation -Mechanical ventilation, wean as tolerated -VAP bundle Acute kidney injury -Nephrology consulted, appreciate recommendation -Trend BMP -S/p MIVF Metabolic acidosis -Bicarb drip -S/p 2 amp of bicarb IVP Elevated D-dimer -Trend D-dimer -Bilateral lower extremity Doppler ultrasound negative for DVT/SVT -Therapeutic Lovenox Hyperchloremia -Nephrology consulted -Trend BMP Diabetes mellitus -SSI -Long-acting insulin -Accu-Cheks every 6 while on tube feedings Hypertension -Hold home antihypertensive regimen for now -Blood pressure monitor per protocol DVT/GI prophylaxis: SCDs to bilateral lower extremities while in bed, heparin s ubcu, PPI Dispo: ICU The high probability of a clinically significant, sudden or life threatening deterioration of the [multi] system(s) required my full and direct attention, intervention and personal management. The aggregate critical care time was [32] minutes. This time is in addition to time spent performing reported procedures but includes the following: [x] Data Review and interpretation [x] Patient assessment and monitoring of vital signs [x] Documentation [x] Medication orders and management Subjective Date of service: 01/31/21 Principal diagnosis: DEISI Interval history: History Interval history: This is a 60-year-old male with diabetes mellitus, hypertension, hyperlipidemia, chronic renal insufficiency presents to the emergency department on 01/23 with shortness of breath, fevers chills, loss of smell and taste and body aches for the past 3 days via EMS. Per EMS patient's oxygen saturation on room air was 50% and after being placed on nonrebreather it increased 75%. Upon arrival to the emergency department patient was being bagged by EMS. In the emergency room patient was intubated due to severe hypoxia, increased work of breathing and lethargy. Patient was sedated on propofol and fentanyl. Patient presented with fever, tachycardia, tachypnea and acute hypoxic respiratory failure with PNA on CXR meeting Sepsis criteria. Lab work in the emergency department revealed hyponatremia, hypokalemia, hypochloremia, elevated CR/BUN and CXR showed bilateral pneumonia. Patient was admitted to the hospital service as a COVID-19 PUI with consults to infectious disease, nephrology and critical care medicine. 01/24/2021: Patient is intubated and sedated, patient is positive for COVID-19 infection. ID was consulted and put on dexamethasone and remdesivir. Patient has DEISI and nephrology is following. Creatinine stable, patient is urinating. Discussed with nephrology and he is okay with remdesivir. Pulmonary critical care is following for his vent setting. PEEP of 8 and FiO2 of 85%. Patient was alert and off sedatives. 01/25/2021; patient is intubated and on mechanical ventilation. Continue with treatment of Covid. Nephrology and ID is following. Pulmonary is following for vent management 01/26: Remains on mechanical ventilation and [facility] increased his PEEP. [facility] has ordered Precedex for sedation. Possibly need to prone this p.m. No acute events reported overnight. This morning his D-dimer is greater than 10,000 and we have started him on Lovenox 120 mg daily. Nutrition has been consulted for initiation of tube feedings. Patient remains sedated on propofol 40 and fentanyl for the time my examination this morning. 01/27: Continue Lovenox, remdesivir and empiric antibiotics. Patient had a T-max of 101 overnight. The time of examination patient is on CMV 500/18/14/0.61. Kidney function slightly worsened. Sedated on fentanyl ground-level fall and Precedex. Nephrology has increased IV fluids to 100 ml/hr. Continue to trend BMP and CBC. Sedation vacation attempt by RN this AM. 01/28: Patient completed antibiotics today [facility] will paralyze patient and increase sedation. PICC line ordered for possible vasopressor therapy need. Patient's D-dimer remains greater than 10,000 and he still has hyperchloremia. Patient's kidney function has improved today. May need to prone the patient if no i mprovement in oxygenation is noted in the next 24 hours. The time of my examination patient is sedated with propofol, fentanyl and Precedex and is on assist control 500/18/16/0.80 hypoxic on ABG on 60% FiO2. 01/29: Patient was started on Nimbex yesterday and his ABG this morning showed respiratory acidosis with hypercapnia and his respiratory rate was increased. We will obtain a repeat ABG this afternoon. This morning patient is hypernatremic, hyperkalemic and hyperchloremic. His potassium has been corrected with the management and will obtain repeat BMP tomorrow. His kidney functions have remained stable and we will await nephrology's input. No acute events reported overnight. This morning the time my examination patient sedated with propofol, Precedex and fentanyl and paralyzed with Nimbex. He is on assist control 500/24/16 0.80. 01/30: This morning patient is hypokalemic again and was given Kayexalate. Patient has hypernatremia and hyper chloremia and his renal function is slightly worse after receiving Lasix yesterday. His D-dimer remains greater than 10,000 and he is still on a paralytic. Patient is sedated on Precedex, fentanyl, propofol. Mechanical ventilation settings seven-point 2/69/61/28. [facility] has decided to continue paralytics for 48 more hours and will attempt proning the patient. She has increased free water flushes 300 cc every 4 hours. Patient states has restarted his antibiotics cefepime and vancomycin and recultured. 01/31 Hypokalemic Supplemented Objective - Constitutional Vitals: Vital Signs - 12hr 01/31/21 01/31/21 01/31/21 11:15 11:30 11:40 Temperature Pulse Rate 90 85 83 Pulse Rate [ From Monitor] Respiratory 28 H 28 H Rate Blood Pressure 125/66 123/64 128/65 O2 Sat by Pulse 94 94 92 Oximetry 01/31/21 01/31/21 01/31/21 11:45 12:00 12:15 Temperature 99 F Pulse Rate 84 83 82 Pulse Rate [ From Monitor] Respiratory 28 H 28 H 28 H Rate Blood Pressure 126/65 128/65 129/66 O2 Sat by Pulse 93 92 92 Oximetry 01/31/21 01/31/21 01/31/21 12:30 12:45 13:00 Temperature Pulse Rate 80 79 79 Pulse Rate [ From Monitor] Respiratory 28 H 28 H 28 H Rate Blood Pressure 127/71 126/66 127/66 O2 Sat by Pulse 92 92 92 Oximetry 01/31/21 01/31/21 01/31/21 13:15 13:30 13:45 Temperature Pulse Rate 78 79 78 Pulse Rate [ From Monitor] Respiratory 28 H 28 H 28 H Rate Blood Pressure 124/64 126/66 128/68 O2 Sat by Pulse 93 92 93 Oximetry 01/31/21 01/31/21 01/31/21 14:00 14:15 14:30 Temperature Pulse Rate 78 78 78 Pulse Rate [ From Monitor] Respiratory 28 H 28 H 28 H Rate Blood Pressure 126/64 126/67 125/62 O2 Sat by Pulse 93 93 93 Oximetry 01/31/21 01/31/21 01/31/21 14:45 15:00 15:15 Temperature Pulse Rate 78 78 80 Pulse Rate [ From Monitor] Respiratory 28 H 28 H 28 H Rate Blood Pressure 126/62 123/67 126/64 O2 Sat by Pulse 92 92 92 Oximetry 01/31/21 01/31/21 01/31/21 15:30 15:45 15:55 Temperature Pulse Rate 78 78 78 Pulse Rate [ From Monitor] Respiratory 28 H 28 H Rate Blood Pressure 122/62 121/63 122/62 O2 Sat by Pulse 92 92 92 Oximetry 01/31/21 01/31/21 01/31/21 16:00 16:15 16:30 Temperature 98.6 F Pulse Rate 78 78 77 Pulse Rate [ 78 From Monitor] Respiratory 28 H 28 H 28 H Rate Blood Pressure 122/64 123/61 122/65 O2 Sat by Pulse 92 92 92 Oximetry 01/31/21 01/31/21 01/31/21 16:45 17:00 17:18 Temperature Pulse Rate 77 85 93 H Pulse Rate [ From Monitor] Respiratory 28 H 28 H 15 Rate Blood Pressure 123/62 128/63 128/63 O2 Sat by Pulse 92 92 Oximetry 01/31/21 01/31/21 01/31/21 17:30 17:45 18:00 Temperature Pulse Rate 86 89 87 Pulse Rate [ From Monitor] Respiratory 28 H 26 H 25 H Rate Blood Pressure 110/54 113/62 113/58 O2 Sat by Pulse 93 94 94 Oximetry 01/31/21 01/31/21 01/31/21 18:15 18:30 18:45 Temperature Pulse Rate 82 79 76 Pulse Rate [ From Monitor] Respiratory 24 27 H 28 H Rate Blood Pressure 117/61 117/61 117/60 O2 Sat by Pulse 94 94 94 Oximetry 01/31/21 01/31/21 01/31/21 19:00 19:15 19:30 Temperature Pulse Rate 75 74 74 Pulse Rate [ From Monitor] Respiratory 28 H 28 H 28 H Rate Blood Pressure 118/63 121/62 116/60 O2 Sat by Pulse 94 94 94 Oximetry 01/31/21 01/31/21 01/31/21 19:45 20:00 20:15 Temperature 99.7 F H Pulse Rate 74 74 81 Pulse Rate [ 74 From Monitor] Respiratory 28 H 28 H 12 Rate Blood Pressure 117/61 108/54 119/65 O2 Sat by Pulse 93 93 94 Oximetry 01/31/21 01/31/21 01/31/21 20:23 20:31 20:45 Temperature Pulse Rate 126 H 126 H 132 H Pulse Rate [ From Monitor] Respiratory 17 25 H Rate Blood Pressure 119/65 121/73 119/65 O2 Sat by Pulse 96 96 94 Oximetry General appearance: Present: no acute distress, well-nourished - EENT Eyes: PERRL, EOM intact ENT: hearing intact, clear oral mucosa Ears: bilateral: normal - Neck Neck: supple, normal ROM - Respiratory Respiratory effort: normal Respiratory: bilateral: CTA - Breasts Breasts: normal - Cardiovascular Heart rate: 78 Rhythm: regular Heart Sounds: Present: S1 & S2. Absent: gallop, rub Extremities: pulses intact, No edema, normal color, Full ROM - Gastrointestinal General gastrointestinal: Present: soft, non-tender, non-distended, normal bowel sounds - Genitourinary Male genitourinary: normal - Integumentary Integumentary: clear, warm, dry - Musculoskeletal Musculoskeletal: 1, strength equal bilaterally - Neurologic Neurologic: moves all extremities - Psychiatric Psychiatric: memory intact, appropriate mood/affect, intact judgment & insight - Labs CBC & Chem 7: 02/03/21 04:10 02/03/21 04:10 Labs: Abnormal lab results 01/30/21 01/30/21 01/31/21 Range/Units 12:00 23:06 04:00 ABG pH (7.350-7.450) pH Units ABG pO2 (80.0-90.0) mm Hg ABG HCO3 (20.0-26.0) mmol/L ABG Base Excess (-2.0-3.0) mmol/L ABG Hemoglobin (14.0-18.0) gm/dl Oxyhemoglobin (95.0-99.0) % Sodium 156 H (137-145) mmol/L Potassium 5.9 H (3.6-5.0) mmol/L Chloride 122.6 H (98-107) mmol/L BUN 61 H (9-20) mg/dL Creatinine 3.2 H (0.8-1.3) mg/dL Glucose 205 H (75-100) mg/dL POC Glucose 192 H (70-105) mg/dL Calcium 8.0 L (8.4-10.2) mg/dL Urine Creatinine 53.0 H (0.1-20.0) mg/dL 01/31/21 01/31/21 01/31/21 Range/Units 04:40 05:17 11:33 ABG pH 7.161 L* (7.350-7.450) pH Units ABG pO2 142.2 H (80.0-90.0) mm Hg ABG HCO3 28.3 H (20.0-26.0) mmol/L ABG Base Excess -3.2 L (-2.0-3.0) mmol/L ABG Hemoglobin (14.0-18.0) gm/dl Oxyhemoglobin (95.0-99.0) % Sodium (137-145) mmol/L Potassium (3.6-5.0) mmol/L Chloride (98-107) mmol/L BUN (9-20) mg/dL Creatinine (0.8-1.3) mg/dL Glucose (75-100) mg/dL POC Glucose 200 H 167 H (70-105) mg/dL Calcium (8.4-10.2) mg/dL Urine Creatinine (0.1-20.0) mg/dL 01/31/21 01/31/21 Range/Units 14:00 17:10 ABG pH 7.205 L (7.350-7.450) pH Units ABG pO2 90.9 H (80.0-90.0) mm Hg ABG HCO3 26.5 H (20.0-26.0) mmol/L ABG Base Excess -2.7 L (-2.0-3.0) mmol/L ABG Hemoglobin 12.3 L (14.0-18.0) gm/dl Oxyhemoglobin 93.9 L (95.0-99.0) % Sodium (137-145) mmol/L Potassium (3.6-5.0) mmol/L Chloride (98-107) mmol/L BUN (9-20) mg/dL Creatinine (0.8-1.3) mg/dL Glucose (75-100) mg/dL POC Glucose 190 H (70-105) mg/dL Calcium (8.4-10.2) mg/dL Urine Creatinine (0.1-20.0) mg/dL HEART Score - HEART Score Risk factors: 1-2 risk factors Troponin: < normal limit - Critical Actions Critical Actions: 0-3 pts:0.9-1.7%risk of adverse cardiac event.Candidate for discharge
[2021-02-01] MEDS: fentaNYL DRIP Premix 2,000 MCG/100 ML BAG IV SCH ×6 (01:00→22:26)
[2021-02-01] MEDS: SODIUM CHLORIDE 0.9% IV SCH ×5 (01:02→22:33)
[2021-02-01] MEDS: CISATRACURIUM IV SCH ×5 (01:02→22:33)
[2021-02-01] MEDS: dexmedeTOMIDine 1,000 MCG in SODIUM CHLORIDE 0.9% 250ML 250 ML IV SCH ×4 (02:32→20:34)
[2021-02-01 05:56] LABS: ABG Base Excess -6.9 mmol/L (-2.0-3.0); ABG HCO3 28.2 mmol/L (20.0-26.0); ABG Oxygen Saturation 92.9 % (95.0-99.0); ABG PCO2 140.8 mm Hg; ABG PO2 102.9 mm Hg (80.0-90.0)
[2021-02-01 06:01] LABS: ABG PH 6.92 pH Units (7.350-7.450)
[2021-02-01] MEDS: NORepinephrine/NS 4 MG-250 ML 4 MG/250 ML BAG IV SCH ×2 (09:00→16:41)
[2021-02-01] MEDS: FAMOTIDINE 20 MG/2 ML INJ IV SCH (09:08)
[2021-02-01] MEDS: dexAMETHasone 4 MG/ML VIAL IV SCH ×2 (09:08→21:18)
[2021-02-01] MEDS: CEFEPIME/NS 1 GM/100 ML 1 GM/100 ML BAG IV SCH ×2 (09:33→21:18)
[2021-02-01] MEDS: ENOXAPARIN 120 MG/0.8 ML INJ SUB-Q SCH (09:34)
[2021-02-01 10:30] LABS: ABG Base Excess -5.8 mmol/L (-2.0-3.0); ABG HCO3 24.2 mmol/L (20.0-26.0); ABG Methemoglobin 0.8 % (0.0-1.5); ABG PCO2 76.9 mm Hg; ABG PO2 113.1 mm Hg (80.0-90.0)
[2021-02-01 10:32] LABS: ABG PH 7.116 pH Units (7.350-7.450)
--- NOTE | 2021-02-01 12:12 | Progress Note ---
Assessment and Plan 60 y/o male with ARDS secondary most likely to COVID 19 pneumonia. 02/01/2021: Worsening blood gases this morning in terms of pH and elevated PaCO2 level. Vent adjustments were made with improvement in blood gases to some degree. Patient oxygenation seems to be improving and now he is down to 75% FiO2. We will continue to wean FiO2 as tolerated. PEEP has been reduced to 12 cm as it may be contributing to space ventilation and elevation in PaCO2. Repeat blood gases has been ordered and pending. 01/31/21: Progressive PaCO2 retention with resp and metabolic acidosis. Currently on PEEP 16. R/R waas increased to 28 this am. Also has increasing K, Na, BUN and Cr levels. on free water thru NG. Kayexalate was given this am. Will try to decrease PEEP in hope to lower PaCO2. Wean FiO2 PaO2 was 142 this am. 01/30/21: Will plan for proning later today. Goal will be at least 12hrs but long is okay. Speaking with pharmacy to see if we can get paralytic for a longer period of time. Regardless will prone. Continue heavy sedation. BP stable. Continue steroids. Very very guarded prognosis. 01/29/21: will increase tidal volume and/or increase respiratory rate. Repeat ABG this afternoon. Continue paralytic and adequate sedation. Continue steroid and remdesivir, follow up any renal recs. Prognosis remains guarded. Wean Fio2 for sats >88% 01/28/21: Increased PEEP to 16. Will paralyze patient today and increase sedati on. Ordering picc line for possible vasopressor therapy needs. Continue BID steroids. Renal function is slightly better today with fluids but could be making oxygenation worse. Not able to diurese. Still making urine. Continue Remdesivir. Watch for fever curve. If not improvement in the next 24 hours with paralyzing, will prone tomorrow morning. 01/27/21: Continue PEEP at 14. No weaning until FiO2 is at or below 40-45%. Continue anticoagulation. Getting Remdesivir now. Continue BID steroids. Renal has increased the fluids. Monitor urine output and renal function. Overall prognosis is very very guarded, especially if renal status worsens. 01/26/21: Increase PEEP to 14. Will add Precedex therapy. If patient does not respond to increases in PEEP may need to prone. Will place patient on lovenox and will feed patient. Remdesivir coming. Continue BID steroids. Prognosis is guarded. 01/25/21: Hold on proning today. Continue BID steroids. ABG this AM was adequate. Pending abg tomorrow, may increase PEEP if not able to wean FiO2 any further. Per charting Remdesivir to arrive tomorrow. Guarded prognosis. 01/24/21: Continue BID steroids. No abg done this am but able to wean FiO2. Will obtain ABG in the am. Hold on proning for right now. Renal following, would like to diurese but they are given fluids for deisi. Agree with ID assessment and note. Guarded prognosis. 1. Increase steroids to BID given size 2. Check with ID to see if he is a candidate for remdesivir or any other experiemental therapy 3. Hold on proning for right now 4. Renal consulted and giving IVF's currently Guarded prognosis. CCT 31 minutes. Subjective Date of service: 02/01/21 Principal diagnosis: DEISI Interval history: No change. Remain hypoxic though improved, currently on FiO2 of 75%. currently staying on his back, off prone position. Blood gases are much worse with very high PaCO2 on prone position. Sedated and paralyzed Objective Vital Signs - 12hr 02/01/21 02/01/21 02/01/21 00:15 00:30 00:34 Temperature Pulse Rate 99 H 99 H 95 H Pulse Rate [ From Monitor] Respiratory 27 H 29 H Rate Blood Pressure 127/66 138/68 138/68 O2 Sat by Pulse 92 95 95 Oximetry 02/01/21 02/01/21 02/01/21 00:45 01:00 01:15 Temperature Pulse Rate 100 H 108 H 124 H Pulse Rate [ From Monitor] Respiratory 28 H 25 H 28 H Rate Blood Pressure 137/73 141/69 139/73 O2 Sat by Pulse 94 95 95 Oximetry 02/01/21 02/01/21 02/01/21 01:31 01:45 02:00 Temperature Pulse Rate 101 H 107 H 113 H Pulse Rate [ From Monitor] Respiratory 24 27 H 19 Rate Blood Pressure 116/58 125/63 137/65 O2 Sat by Pulse 93 94 93 Oximetry 02/01/21 02/01/21 02/01/21 02:16 02:30 02:46 Temperature Pulse Rate 122 H 118 H 108 H Pulse Rate [ From Monitor] Respiratory 23 28 H 28 H Rate Blood Pressure 137/65 128/62 105/55 O2 Sat by Pulse 90 91 93 Oximetry 02/01/21 02/01/21 02/01/21 03:00 03:15 03:30 Temperature Pulse Rate 109 H 117 H 125 H Pulse Rate [ From Monitor] Respiratory 28 H 21 18 Rate Blood Pressure 104/56 127/65 147/70 O2 Sat by Pulse 94 94 93 Oximetry 02/01/21 02/01/21 02/01/21 03:45 04:00 04:15 Temperature 99.6 F Pulse Rate 130 H 122 H 114 H Pulse Rate [ 74 From Monitor] Respiratory 19 29 H 27 H Rate Blood Pressure 153/75 143/73 103/57 O2 Sat by Pulse 92 95 92 Oximetry 02/01/21 02/01/21 02/01/21 04:30 04:45 05:00 Temperature Pulse Rate 118 H 118 H 122 H Pulse Rate [ From Monitor] Respiratory 29 H 27 H 18 Rate Blood Pressure 109/58 114/60 117/64 O2 Sat by Pulse 92 92 92 Oximetry 02/01/21 02/01/21 02/01/21 05:15 05:30 05:45 Temperature Pulse Rate 128 H 123 H 127 H Pulse Rate [ From Monitor] Respiratory 28 H 21 16 Rate Blood Pressure 127/72 118/67 129/70 O2 Sat by Pulse 92 93 92 Oximetry 02/01/21 02/01/21 02/01/21 06:00 06:15 06:30 Temperature Pulse Rate 129 H 132 H 133 H Pulse Rate [ From Monitor] Respiratory 25 H 16 21 Rate Blood Pressure 138/72 146/75 146/76 O2 Sat by Pulse 92 91 90 Oximetry 02/01/21 02/01/21 02/01/21 06:46 07:00 07:15 Temperature Pulse Rate 119 H 104 H 93 H Pulse Rate [ From Monitor] Respiratory 17 28 H 28 H Rate Blood Pressure 146/76 73/40 61/34 O2 Sat by Pulse 93 92 Oximetry 02/01/21 02/01/21 02/01/21 07:30 07:45 07:52 Temperature 99 F Pulse Rate 89 85 Pulse Rate [ From Monitor] Respiratory 28 H 28 H Rate Blood Pressure 63/34 63/33 O2 Sat by Pulse 93 93 Oximetry 02/01/21 02/01/21 02/01/21 07:58 08:00 08:15 Temperature Pulse Rate 84 84 83 Pulse Rate [ 85 From Monitor] Respiratory 28 H 28 H Rate Blood Pressure 64/35 65/35 O2 Sat by Pulse 95 94 Oximetry 02/01/21 02/01/21 02/01/21 08:16 08:30 08:45 Temperature Pulse Rate 83 82 86 Pulse Rate [ From Monitor] Respiratory 28 H 28 H Rate Blood Pressure 65/35 65/35 67/37 O2 Sat by Pulse 94 94 95 Oximetry 02/01/21 02/01/21 02/01/21 09:00 09:15 09:30 Temperature Pulse Rate 86 91 H 93 H Pulse Rate [ From Monitor] Respiratory 28 H 28 H 28 H Rate Blood Pressure 67/36 71/38 83/45 O2 Sat by Pulse 96 97 97 Oximetry 02/01/21 02/01/21 02/01/21 09:45 10:00 11:00 Temperature Pulse Rate 104 H 92 H 95 H Pulse Rate [ From Monitor] Respiratory 28 H Rate Blood Pressure 86/47 91/48 107/55 O2 Sat by Pulse 98 98 95 Oximetry CBC and BMP: 01/30/21 05:00 01/31/21 04:00 ABG, PT/INR, D-dimer: ABG ABG pH 7.116 pH Units (7.350-7.450) L* 02/01/21 10:20 POC ABG pCO2 69.7 mmHg (32.0-48.0) H 01/30/21 04:24 ABG pCO2 76.9 mm Hg 02/01/21 10:20 POC ABG pO2 61.0 mmHg (83-108) L 01/30/21 04:24 ABG pO2 113.1 mm Hg (80.0-90.0) H 02/01/21 10:20 POC ABG HCO3 28.9 01/30/21 04:24 ABG O2 Saturation 97.0 % (95.0-99.0) 02/01/21 10:20 PT/INR, D-dimer D-Dimer > 51499 ng/mlDDU (0-234) H 01/30/21 04:00 Abnormal lab findings: Abnormal Labs 01/22/21 01/22/21 01/22/21 22:39 22:57 22:57 WBC RBC Hgb Hct MCV MCH MCHC RDW Lymph % (Auto) 6.6 L Lymph # (Auto) 0.5 L Seg Neutrophils % 87.6 H Seg Neuts % (Manual) Lymphocytes % (Manual) Seg Neutrophils # Man Lymphocytes # (Manual) D-Dimer ABG pH POC ABG pCO2 POC ABG pO2 ABG pO2 ABG HCO3 ABG O2 Saturation ABG Base Excess ABG Hemoglobin ABG Oxyhemoglobin ABG Sodium ABG Potassium ABG Chloride ABG Glucose Oxyhemoglobin Carboxyhemoglobin Sodium 129 L Potassium 3.4 L Chloride 90.4 L Carbon Dioxide BUN 34 H Creatinine 1.5 H Glucose 146 H POC Glucose Lactic Acid Calcium 7.8 L Magnesium Ferritin Total Bilirubin AST 75 H ALT 57 H Lactate Dehydrogenase C-Reactive Protein Albumin 2.9 L Triglycerides Arterial Blood Glucose Arterial Blood Ionized Calcium Urine Creatinine 301.2 H Coronavirus (PCR) 01/22/21 01/22/21 01/22/21 22:57 22:57 22:57 WBC RBC Hgb Hct MCV MCH MCHC RDW Lymph % (Auto) Lymph # (Auto) Seg Neutrophils % Seg Neuts % (Manual) Lymphocytes % (Manual) Seg Neutrophils # Man Lymphocytes # (Manual) D-Dimer 1173.89 H ABG pH POC ABG pCO2 POC ABG pO2 ABG pO2 ABG HCO3 ABG O2 Saturation ABG Base Excess ABG Hemoglobin ABG Oxyhemoglobin ABG Sodium ABG Potassium ABG Chloride ABG Glucose Oxyhemoglobin Carboxyhemoglobin Sodium Potassium Chloride Carbon Dioxide BUN Creatinine Glucose 149 H POC Glucose Lactic Acid 2.10 H* Calcium Magnesium Ferritin Total Bilirubin AST ALT Lactate Dehydrogenase 685 H C-Reactive Protein 30.40 H Albumin Triglycerides Arterial Blood Glucose Arterial Blood Ionized Calcium Urine Creatinine Coronavirus (PCR) 01/22/21 01/23/21 01/23/21 22:57 08:41 10:01 WBC RBC Hgb Hct MCV MCH MCHC RDW Lymph % (Auto) Lymph # (Auto) Seg Neutrophils % Seg Neuts % (Manual) Lymphocytes % (Manual) Seg Neutrophils # Man Lymphocytes # (Manual) D-Dimer ABG pH POC ABG pCO2 POC ABG pO2 ABG pO2 ABG HCO3 ABG O2 Saturation ABG Base Excess ABG Hemoglobin ABG Oxyhemoglobin ABG Sodium ABG Potassium ABG Chloride ABG Glucose Oxyhemoglobin Carboxyhemoglobin Sodium 131 L Potassium Chloride 88.7 L Carbon Dioxide 18 L BUN 36 H Creatinine 1.6 H Glucose 147 H POC Glucose Lactic Acid Calcium 7.5 L Magnesium Ferritin 1207.0 H Total Bilirubin AST ALT Lactate Dehydrogenase C-Reactive Protein Albumin Triglycerides Arterial Blood Glucose Arterial Blood Ionized Calcium Urine Creatinine Coronavirus (PCR) Positive A 01/23/21 01/23/21 01/24/21 20:49 Unknown 00:10 WBC RBC Hgb Hct MCV MCH MCHC RDW Lymph % (Auto) Lymph # (Auto) Seg Neutrophils % Seg Neuts % (Manual) Lymphocytes % (Manual) Seg Neutrophils # Man Lymphocytes # (Manual) D-Dimer ABG pH POC ABG pCO2 POC ABG pO2 ABG pO2 165.4 H ABG HCO3 ABG O2 Saturation ABG Base Excess -2.5 L ABG Hemoglobin ABG Oxyhemoglobin ABG Sodium ABG Potassium ABG Chloride ABG Glucose Oxyhemoglobin Carboxyhemoglobin Sodium 130 L Potassium Chloride 91.0 L Carbon Dioxide 20 L BUN 52 H Creatinine 3.8 H D Glucose 150 H POC Glucose 125 H Lactic Acid Calcium 8.0 L Magnesium Ferritin Total Bilirubin AST 42 H ALT Lactate Dehydrogenase C-Reactive Protein Albumin 2.4 L Triglycerides Arterial Blood Glucose Arterial Blood Ionized Calcium Urine Creatinine Coronavirus (PCR) 01/24/21 01/24/21 01/24/21 05:05 05:05 05:05 WBC 14.0 H RBC Hgb Hct MCV 95 H MCH 33 H MCHC RDW Lymph % (Auto) Lymph # (Auto) Seg Neutrophils % Seg Neuts % (Manual) 91.0 H Lymphocytes % (Manual) 4.0 L Seg Neutrophils # Man 12.7 H Lymphocytes # (Manual) 0.6 L D-Dimer 6159.48 H ABG pH POC ABG pCO2 POC ABG pO2 ABG pO2 ABG HCO3 ABG O2 Saturation ABG Base Excess ABG Hemoglobin ABG Oxyhemoglobin ABG Sodium ABG Potassium ABG Chloride ABG Glucose Oxyhemoglobin Carboxyhemoglobin Sodium Potassium Chloride Carbon Dioxide BUN Creatinine Glucose POC Glucose Lactic Acid Calcium Magnesium Ferritin 1178.0 H Total Bilirubin AST ALT Lactate Dehydrogenase C-Reactive Protein Albumin Triglycerides Arterial Blood Glucose Arterial Blood Ionized Calcium Urine Creatinine Coronavirus (PCR) 01/24/21 01/24/21 01/24/21 05:05 05:05 05:05 WBC RBC Hgb Hct MCV MCH MCHC RDW Lymph % (Auto) Lymph # (Auto) Seg Neutrophils % Seg Neuts % (Manual) Lymphocytes % (Manual) Seg Neutrophils # Man Lymphocytes # (Manual) D-Dimer ABG pH POC ABG pCO2 POC ABG pO2 ABG pO2 ABG HCO3 ABG O2 Saturation ABG Base Excess ABG Hemoglobin ABG Oxyhemoglobin ABG Sodium ABG Potassium ABG Chloride ABG Glucose Oxyhemoglobin Carboxyhemoglobin Sodium 132 L Potassium Chloride 93.1 L Carbon Dioxide 21 L BUN 57 H Creatinine 3.7 H Glucose 133 H POC Glucose Lactic Acid 2.20 H* Calcium 7.7 L Magnesium Ferritin Total Bilirubin AST ALT Lactate Dehydrogenase 658 H C-Reactive Protein 33.20 H Albumin 2.4 L Triglycerides Arterial Blood Glucose Arterial Blood Ionized Calcium Urine Creatinine Coronavirus (PCR) 01/24/21 01/24/21 01/24/21 05:34 06:00 17:35 WBC RBC Hgb Hct MCV MCH MCHC RDW Lymph % (Auto) Lymph # (Auto) Seg Neutrophils % Seg Neuts % (Manual) Lymphocytes % (Manual) Seg Neutrophils # Man Lymphocytes # (Manual) D-Dimer ABG pH POC ABG pCO2 POC ABG pO2 ABG pO2 ABG HCO3 ABG O2 Saturation ABG Base Excess ABG Hemoglobin ABG Oxyhemoglobin ABG Sodium ABG Potassium ABG Chloride ABG Glucose Oxyhemoglobin Carboxyhemoglobin Sodium Potassium Chloride Carbon Dioxide BUN Creatinine Glucose POC Glucose 136 H 137 H Lactic Acid Calcium Magnesium 2.80 H Ferritin Total Bilirubin AST ALT Lactate Dehydrogenase C-Reactive Protein Albumin Triglycerides Arterial Blood Glucose Arterial Blood Ionized Calcium Urine Creatinine Coronavirus (PCR) 01/25/21 01/25/21 01/25/21 04:15 05:40 05:40 WBC RBC Hgb Hct MCV 95 H MCH 33 H MCHC 35 H RDW Lymph % (Auto) Lymph # (Auto) Seg Neutrophils % Seg Neuts % (Manual) 95.0 H Lymphocytes % (Manual) 3.0 L Seg Neutrophils # Man 7.8 H Lymphocytes # (Manual) 0.2 L D-Dimer ABG pH POC ABG pCO2 POC ABG pO2 63.2 L ABG pO2 ABG HCO3 ABG O2 Saturation ABG Base Excess ABG Hemoglobin ABG Oxyhemoglobin 89.6 L ABG Sodium ABG Potassium ABG Chloride ABG Glucose 165 H Oxyhemoglobin Carboxyhemoglobin 0.3 L Sodium Potassium Chloride Carbon Dioxide BUN 67 H Creatinine 3.4 H Glucose 153 H POC Glucose Lactic Acid Calcium 7.5 L Magnesium Ferritin Total Bilirubin 1.40 H AST 62 H ALT Lactate Dehydrogenase C-Reactive Protein Albumin 2.6 L Triglycerides Arterial Blood Glucose 165 H Arterial Blood Ionized Calcium 4.3 L Urine Creatinine Coronavirus (PCR) 01/25/21 01/25/21 01/25/21 05:59 12:00 17:17 WBC RBC Hgb Hct MCV MCH MCHC RDW Lymph % (Auto) Lymph # (Auto) Seg Neutrophils % Seg Neuts % (Manual) Lymphocytes % (Manual) Seg Neutrophils # Man Lymphocytes # (Manual) D-Dimer ABG pH POC ABG pCO2 POC ABG pO2 ABG pO2 ABG HCO3 ABG O2 Saturation ABG Base Excess ABG Hemoglobin ABG Oxyhemoglobin ABG Sodium ABG Potassium ABG Chloride ABG Glucose Oxyhemoglobin Carboxyhemoglobin Sodium Potassium Chloride Carbon Dioxide BUN Creatinine Glucose POC Glucose 140 H 143 H 149 H Lactic Acid Calcium Magnesium Ferritin Total Bilirubin AST ALT Lactate Dehydrogenase C-Reactive Protein Albumin Triglycerides Arterial Blood Glucose Arterial Blood Ionized Calcium Urine Creatinine Coronavirus (PCR) 01/25/21 01/26/21 01/26/21 23:41 03:43 05:46 WBC RBC Hgb Hct MCV MCH MCHC RDW Lymph % (Auto) Lymph # (Auto) Seg Neutrophils % Seg Neuts % (Manual) Lymphocytes % (Manual) Seg Neutrophils # Man Lymphocytes # (Manual) D-Dimer ABG pH POC ABG pCO2 POC ABG pO2 70.0 L ABG pO2 ABG HCO3 ABG O2 Saturation ABG Base Excess ABG Hemoglobin ABG Oxyhemoglobin 91.9 L ABG Sodium ABG Potassium ABG Chloride 109.0 H ABG Glucose 165 H Oxyhemoglobin Carboxyhemoglobin Sodium Potassium Chloride Carbon Dioxide BUN Creatinine Glucose POC Glucose 132 H 161 H Lactic Acid Calcium Magnesium Ferritin Total Bilirubin AST ALT Lactate Dehydrogenase C-Reactive Protein Albumin Triglycerides Arterial Blood Glucose 165 H Arterial Blood Ionized Calcium 4.5 L Urine Creatinine Coronavirus (PCR) 01/26/21 01/26/21 01/26/21 05:47 05:47 05:47 WBC RBC Hgb Hct 35.3 L MCV 96 H MCH 33 H MCHC RDW Lymph % (Auto) Lymph # (Auto) Seg Neutrophils % Seg Neuts % (Manual) 96.0 H Lymphocytes % (Manual) 2.0 L Seg Neutrophils # Man Lymphocytes # (Manual) 0.1 L D-Dimer > 02983 H ABG pH POC ABG pCO2 POC ABG pO2 ABG pO2 ABG HCO3 ABG O2 Saturation ABG Base Excess ABG Hemoglobin ABG Oxyhemoglobin ABG Sodium ABG Potassium ABG Chloride ABG Glucose Oxyhemoglobin Carboxyhemoglobin Sodium Potassium Chloride Carbon Dioxide BUN 57 H Creatinine 2.2 H Glucose 185 H POC Glucose Lactic Acid Calcium 8.1 L Magnesium Ferritin Total Bilirubin AST ALT Lactate Dehydrogenase C-Reactive Protein Albumin Triglycerides Arterial Blood Glucose Arterial Blood Ionized Calcium Urine Creatinine Coronavirus (PCR) 01/26/21 01/26/21 01/26/21 05:47 05:47 05:47 WBC RBC Hgb Hct MCV MCH MCHC RDW Lymph % (Auto) Lymph # (Auto) Seg Neutrophils % Seg Neuts % (Manual) Lymphocytes % (Manual) Seg Neutrophils # Man Lymphocytes # (Manual) D-Dimer ABG pH POC ABG pCO2 POC ABG pO2 ABG pO2 ABG HCO3 ABG O2 Saturation ABG Base Excess ABG Hemoglobin ABG Oxyhemoglobin ABG Sodium ABG Potassium ABG Chloride ABG Glucose Oxyhemoglobin Carboxyhemoglobin Sodium Potassium Chloride 107.1 H Carbon Dioxide BUN 56 H Creatinine 2.2 H Glucose 188 H POC Glucose Lactic Acid Calcium 8.0 L Magnesium Ferritin 1178.0 H Total Bilirubin 1.50 H AST ALT Lactate Dehydrogenase 588 H C-Reactive Protein 40.10 H Albumin 2.2 L Triglycerides Arterial Blood Glucose Arterial Blood Ionized Calcium Urine Creatinine Coronavirus (PCR) 01/26/21 01/26/21 01/26/21 11:34 18:17 23:20 WBC RBC Hgb Hct MCV MCH MCHC RDW Lymph % (Auto) Lymph # (Auto) Seg Neutrophils % Seg Neuts % (Manual) Lymphocytes % (Manual) Seg Neutrophils # Man Lymphocytes # (Manual) D-Dimer ABG pH POC ABG pCO2 POC ABG pO2 ABG pO2 ABG HCO3 ABG O2 Saturation ABG Base Excess ABG Hemoglobin ABG Oxyhemoglobin ABG Sodium ABG Potassium ABG Chloride ABG Glucose Oxyhemoglobin Carboxyhemoglobin Sodium Potassium Chloride Carbon Dioxide BUN Creatinine Glucose POC Glucose 129 H 205 H 155 H Lactic Acid Calcium Magnesium Ferritin Total Bilirubin AST ALT Lactate Dehydrogenase C-Reactive Protein Albumin Triglycerides Arterial Blood Glucose Arterial Blood Ionized Calcium Urine Creatinine Coronavirus (PCR) 01/27/21 01/27/21 01/27/21 02:45 05:29 05:29 WBC RBC 3.58 L Hgb 11.7 L Hct 34.9 L MCV 97 H MCH 33 H MCHC RDW Lymph % (Auto) Lymph # (Auto) Seg Neutrophils % Seg Neuts % (Manual) 88.0 H Lymphocytes % (Manual) 7.0 L Seg Neutrophils # Man Lymphocytes # (Manual) 0.5 L D-Dimer ABG pH 7.319 L POC ABG pCO2 50.7 H POC ABG pO2 63.0 L ABG pO2 ABG HCO3 ABG O2 Saturation ABG Base Excess ABG Hemoglobin ABG Oxyhemoglobin ABG Sodium 145.2 H ABG Potassium 5.1 H ABG Chloride 114.0 H ABG Glucose 178 H Oxyhemoglobin Carboxyhemoglobin Sodium Potassium Chloride Carbon Dioxide BUN Creatinine Glucose POC Glucose Lactic Acid Calcium Magnesium 4.00 H Ferritin Total Bilirubin AST ALT Lactate Dehydrogenase C-Reactive Protein Albumin Triglycerides Arterial Blood Glucose 178 H Arterial Blood Ionized Calcium Urine Creatinine Coronavirus (PCR) 01/27/21 01/27/21 01/27/21 05:29 05:29 05:31 WBC RBC Hgb Hct MCV MCH MCHC RDW Lymph % (Auto) Lymph # (Auto) Seg Neutrophils % Seg Neuts % (Manual) Lymphocytes % (Manual) Seg Neutrophils # Man Lymphocytes # (Manual) D-Dimer ABG pH POC ABG pCO2 POC ABG pO2 ABG pO2 ABG HCO3 ABG O2 Saturation ABG Base Excess ABG Hemoglobin ABG Oxyhemoglobin ABG Sodium ABG Potassium ABG Chloride ABG Glucose Oxyhemoglobin Carboxyhemoglobin Sodium Potassium 5.2 H Chloride 109.6 H Carbon Dioxide BUN 67 H Creatinine 2.8 H Glucose 195 H POC Glucose 176 H Lactic Acid Calcium 7.9 L Magnesium Ferritin Total Bilirubin AST ALT Lactate Dehydrogenase C-Reactive Protein Albumin Triglycerides 160 H Arterial Blood Glucose Arterial Blood Ionized Calcium Urine Creatinine Coronavirus (PCR) 01/27/21 01/27/21 01/27/21 11:27 18:08 23:30 WBC RBC Hgb Hct MCV MCH MCHC RDW Lymph % (Auto) Lymph # (Auto) Seg Neutrophils % Seg Neuts % (Manual) Lymphocytes % (Manual) Seg Neutrophils # Man Lymphocytes # (Manual) D-Dimer ABG pH POC ABG pCO2 POC ABG pO2 ABG pO2 ABG HCO3 ABG O2 Saturation ABG Base Excess ABG Hemoglobin ABG Oxyhemoglobin ABG Sodium ABG Potassium ABG Chloride ABG Glucose Oxyhemoglobin Carboxyhemoglobin Sodium Potassium Chloride Carbon Dioxide BUN Creatinine Glucose POC Glucose 189 H 212 H 175 H Lactic Acid Calcium Magnesium Ferritin Total Bilirubin AST ALT Lactate Dehydrogenase C-Reactive Protein Albumin Triglycerides Arterial Blood Glucose Arterial Blood Ionized Calcium Urine Creatinine Coronavirus (PCR) 01/28/21 01/28/21 01/28/21 03:58 04:00 04:00 WBC RBC Hgb Hct MCV MCH MCHC RDW Lymph % (Auto) Lymph # (Auto) Seg Neutrophils % Seg Neuts % (Manual) Lymphocytes % (Manual) Seg Neutrophils # Man Lymphocytes # (Manual) D-Dimer > 62003 H ABG pH POC ABG pCO2 POC ABG pO2 52.9 L ABG pO2 ABG HCO3 ABG O2 Saturation ABG Base Excess ABG Hemoglobin ABG Oxyhemoglobin 84.1 L ABG Sodium 148.9 H ABG Potassium ABG Chloride 117.0 H ABG Glucose 194 H Oxyhemoglobin Carboxyhemoglobin Sodium Potassium Chloride Carbon Dioxide BUN Creatinine Glucose POC Glucose Lactic Acid Calcium Magnesium Ferritin Total Bilirubin AST ALT Lactate Dehydrogenase 679 H C-Reactive Protein 17.10 H Albumin Triglycerides Arterial Blood Glucose 194 H Arterial Blood Ionized Calcium Urine Creatinine Coronavirus (PCR) 01/28/21 01/28/21 01/28/21 04:00 05:00 06:00 WBC RBC 3.59 L Hgb 11.6 L Hct 34.8 L MCV 97 H MCH MCHC RDW Lymph % (Auto) Lymph # (Auto) Seg Neutrophils % Seg Neuts % (Manual) 96.0 H Lymphocytes % (Manual) 3.0 L Seg Neutrophils # Man Lymphocytes # (Manual) 0.2 L D-Dimer ABG pH POC ABG pCO2 POC ABG pO2 ABG pO2 ABG HCO3 ABG O2 Saturation ABG Base Excess ABG Hemoglobin ABG Oxyhemoglobin ABG Sodium ABG Potassium ABG Chloride ABG Glucose Oxyhemoglobin Carboxyhemoglobin Sodium Potassium Chloride Carbon Dioxide BUN Creatinine Glucose POC Glucose 159 H Lactic Acid Calcium Magnesium Ferritin 798.0 H Total Bilirubin AST ALT Lactate Dehydrogenase C-Reactive Protein Albumin Triglycerides Arterial Blood Glucose Arterial Blood Ionized Calcium Urine Creatinine Coronavirus (PCR) 01/28/21 01/28/21 01/28/21 06:00 06:00 08:12 WBC RBC Hgb Hct MCV MCH MCHC RDW Lymph % (Auto) Lymph # (Auto) Seg Neutrophils % Seg Neuts % (Manual) Lymphocytes % (Manual) Seg Neutrophils # Man Lymphocytes # (Manual) D-Dimer ABG pH POC ABG pCO2 POC ABG pO2 ABG pO2 ABG HCO3 ABG O2 Saturation ABG Base Excess ABG Hemoglobin ABG Oxyhemoglobin ABG Sodium ABG Potassium ABG Chloride ABG Glucose Oxyhemoglobin Carboxyhemoglobin Sodium Potassium Chloride 111.9 H Carbon Dioxide BUN 59 H Creatinine 2.2 H Glucose 189 H POC Glucose 181 H Lactic Acid Calcium 8.1 L Magnesium 3.20 H Ferritin Total Bilirubin AST ALT Lactate Dehydrogenase C-Reactive Protein Albumin Triglycerides Arterial Blood Glucose Arterial Blood Ionized Calcium Urine Creatinine Coronavirus (PCR) 01/28/21 01/28/21 01/28/21 12:03 16:43 23:51 WBC RBC Hgb Hct MCV MCH MCHC RDW Lymph % (Auto) Lymph # (Auto) Seg Neutrophils % Seg Neuts % (Manual) Lymphocytes % (Manual) Seg Neutrophils # Man Lymphocytes # (Manual) D-Dimer ABG pH POC ABG pCO2 POC ABG pO2 ABG pO2 ABG HCO3 ABG O2 Saturation ABG Base Excess ABG Hemoglobin ABG Oxyhemoglobin ABG Sodium ABG Potassium ABG Chloride ABG Glucose Oxyhemoglobin Carboxyhemoglobin Sodium Potassium Chloride Carbon Dioxide BUN Creatinine Glucose POC Glucose 164 H 198 H 196 H Lactic Acid Calcium Magnesium Ferritin Total Bilirubin AST ALT Lactate Dehydrogenase C-Reactive Protein Albumin Triglycerides Arterial Blood Glucose Arterial Blood Ionized Calcium Urine Creatinine Coronavirus (PCR) 01/29/21 01/29/21 01/29/21 05:00 05:23 06:00 WBC RBC Hgb Hct MCV MCH MCHC RDW Lymph % (Auto) Lymph # (Auto) Seg Neutrophils % Seg Neuts % (Manual) Lymphocytes % (Manual) Seg Neutrophils # Man Lymphocytes # (Manual) D-Dimer ABG pH 7.119 L POC ABG pCO2 87.1 H POC ABG pO2 ABG pO2 ABG HCO3 ABG O2 Saturation ABG Base Excess ABG Hemoglobin ABG Oxyhemoglobin ABG Sodium 152.5 H ABG Potassium 5.7 H ABG Chloride 120.0 H ABG Glucose 217 H Oxyhemoglobin Carboxyhemoglobin Sodium 151 H Potassium 5.9 H D Chloride 117.8 H Carbon Dioxide BUN 54 H Creatinine 2.2 H Glucose 208 H POC Glucose 180 H Lactic Acid Calcium 7.9 L Magnesium Ferritin Total Bilirubin AST ALT Lactate Dehydrogenase C-Reactive Protein Albumin Triglycerides Arterial Blood Glucose 217 H Arterial Blood Ionized Calcium Urine Creatinine Coronavirus (PCR) 01/29/21 01/29/21 01/29/21 12:29 17:28 18:05 WBC RBC Hgb Hct MCV MCH MCHC RDW Lymph % (Auto) Lymph # (Auto) Seg Neutrophils % Seg Neuts % (Manual) Lymphocytes % (Manual) Seg Neutrophils # Man Lymphocytes # (Manual) D-Dimer ABG pH POC ABG pCO2 POC ABG pO2 ABG pO2 ABG HCO3 ABG O2 Saturation ABG Base Excess ABG Hemoglobin ABG Oxyhemoglobin ABG Sodium ABG Potassium ABG Chloride ABG Glucose Oxyhemoglobin Carboxyhemoglobin Sodium 151 H Potassium 5.5 H Chloride 118.2 H Carbon Dioxide BUN 52 H Creatinine 2.2 H Glucose 224 H POC Glucose 181 H 203 H Lactic Acid Calcium 8.0 L Magnesium Ferritin Total Bilirubin AST ALT Lactate Dehydrogenase C-Reactive Protein Albumin Triglycerides Arterial Blood Glucose Arterial Blood Ionized Calcium Urine Creatinine Coronavirus (PCR) 01/29/21 01/29/21 01/29/21 18:13 23:34 Unknown WBC RBC Hgb Hct MCV 101 H MCH MCHC RDW 15.7 H Lymph % (Auto) Lymph # (Auto) Seg Neutrophils % Seg Neuts % (Manual) 95.0 H Lymphocytes % (Manual) 3.0 L Seg Neutrophils # Man 8.0 H Lymphocytes # (Manual) 0.3 L D-Dimer ABG pH 7.223 L POC ABG pCO2 64.8 H POC ABG pO2 63.6 L ABG pO2 ABG HCO3 ABG O2 Saturation ABG Base Excess ABG Hemoglobin ABG Oxyhemoglobin 89.4 L ABG Sodium 152.9 H ABG Potassium 5.3 H ABG Chloride 121.0 H ABG Glucose 227 H Oxyhemoglobin Carboxyhemoglobin Sodium Potassium Chloride Carbon Dioxide BUN Creatinine Glucose POC Glucose 198 H Lactic Acid Calcium Magnesium Ferritin Total Bilirubin AST ALT Lactate Dehydrogenase C-Reactive Protein Albumin Triglycerides Arterial Blood Glucose 227 H Arterial Blood Ionized Calcium Urine Creatinine Coronavirus (PCR) 01/30/21 01/30/21 01/30/21 04:00 04:00 04:00 WBC RBC Hgb Hct MCV MCH MCHC RDW Lymph % (Auto) Lymph # (Auto) Seg Neutrophils % Seg Neuts % (Manual) Lymphocytes % (Manual) Seg Neutrophils # Man Lymphocytes # (Manual) D-Dimer > 21590 H ABG pH POC ABG pCO2 POC ABG pO2 ABG pO2 ABG HCO3 ABG O2 Saturation ABG Base Excess ABG Hemoglobin ABG Oxyhemoglobin ABG Sodium ABG Potassium ABG Chloride ABG Glucose Oxyhemoglobin Carboxyhemoglobin Sodium Potassium Chloride Carbon Dioxide BUN Creatinine Glucose 234 H POC Glucose Lactic Acid Calcium Magnesium Ferritin 763.9 H Total Bilirubin AST ALT Lactate Dehydrogenase 424 H C-Reactive Protein 23.90 H Albumin Triglycerides Arterial Blood Glucose Arterial Blood Ionized Calcium Urine Creatinine Coronavirus (PCR) 01/30/21 01/30/21 01/30/21 04:24 05:00 05:16 WBC RBC 3.57 L Hgb 11.3 L Hct 35.4 L MCV 99 H MCH MCHC RDW 15.6 H Lymph % (Auto) Lymph # (Auto) Seg Neutrophils % Seg Neuts % (Manual) 97.0 H Lymphocytes % (Manual) 1.0 L Seg Neutrophils # Man 8.6 H Lymphocytes # (Manual) 0.1 L D-Dimer ABG pH 7.235 L POC ABG pCO2 69.7 H POC ABG pO2 61.0 L ABG pO2 ABG HCO3 ABG O2 Saturation ABG Base Excess ABG Hemoglobin ABG Oxyhemoglobin 89 L ABG Sodium 154.2 H ABG Potassium 5.4 H ABG Chloride 121.0 H ABG Glucose 247 H Oxyhemoglobin Carboxyhemoglobin Sodium Potassium Chloride Carbon Dioxide BUN Creatinine Glucose POC Glucose 238 H Lactic Acid Calcium Magnesium Ferritin Total Bilirubin AST ALT Lactate Dehydrogenase C-Reactive Protein Albumin Triglycerides Arterial Blood Glucose 247 H Arterial Blood Ionized Calcium Urine Creatinine Coronavirus (PCR) 01/30/21 01/30/21 01/30/21 06:00 11:28 12:00 WBC RBC Hgb Hct MCV MCH MCHC RDW Lymph % (Auto) Lymph # (Auto) Seg Neutrophils % Seg Neuts % (Manual) Lymphocytes % (Manual) Seg Neutrophils # Man Lymphocytes # (Manual) D-Dimer ABG pH POC ABG pCO2 POC ABG pO2 ABG pO2 ABG HCO3 ABG O2 Saturation ABG Base Excess ABG Hemoglobin ABG Oxyhemoglobin ABG Sodium ABG Potassium ABG Chloride ABG Glucose Oxyhemoglobin Carboxyhemoglobin Sodium 152 H Potassium 5.3 H Chloride 120.5 H Carbon Dioxide BUN 50 H Creatinine 2.3 H Glucose 239 H POC Glucose 153 H Lactic Acid Calcium 8.2 L Magnesium 2.60 H Ferritin Total Bilirubin AST ALT Lactate Dehydrogenase C-Reactive Protein Albumin Triglycerides 293 H Arterial Blood Glucose Arterial Blood Ionized Calcium Urine Creatinine 53.0 H Coronavirus (PCR) 01/30/21 01/30/21 01/31/21 18:49 23:06 04:00 WBC RBC Hgb Hct MCV MCH MCHC RDW Lymph % (Auto) Lymph # (Auto) Seg Neutrophils % Seg Neuts % (Manual) Lymphocytes % (Manual) Seg Neutrophils # Man Lymphocytes # (Manual) D-Dimer ABG pH POC ABG pCO2 POC ABG pO2 ABG pO2 ABG HCO3 ABG O2 Saturation ABG Base Excess ABG Hemoglobin ABG Oxyhemoglobin ABG Sodium ABG Potassium ABG Chloride ABG Glucose Oxyhemoglobin Carboxyhemoglobin Sodium 156 H Potassium 5.9 H Chloride 122.6 H Carbon Dioxide BUN 61 H Creatinine 3.2 H Glucose 205 H POC Glucose 220 H 192 H Lactic Acid Calcium 8.0 L Magnesium Ferritin Total Bilirubin AST ALT Lactate Dehydrogenase C-Reactive Protein Albumin Triglycerides Arterial Blood Glucose Arterial Blood Ionized Calcium Urine Creatinine Coronavirus (PCR) 01/31/21 01/31/21 01/31/21 04:40 05:17 11:33 WBC RBC Hgb Hct MCV MCH MCHC RDW Lymph % (Auto) Lymph # (Auto) Seg Neutrophils % Seg Neuts % (Manual) Lymphocytes % (Manual) Seg Neutrophils # Man Lymphocytes # (Manual) D-Dimer ABG pH 7.161 L* POC ABG pCO2 POC ABG pO2 ABG pO2 142.2 H ABG HCO3 28.3 H ABG O2 Saturation ABG Base Excess -3.2 L ABG Hemoglobin ABG Oxyhemoglobin ABG Sodium ABG Potassium ABG Chloride ABG Glucose Oxyhemoglobin Carboxyhemoglobin Sodium Potassium Chloride Carbon Dioxide BUN Creatinine Glucose POC Glucose 200 H 167 H Lactic Acid Calcium Magnesium Ferritin Total Bilirubin AST ALT Lactate Dehydrogenase C-Reactive Protein Albumin Triglycerides Arterial Blood Glucose Arterial Blood Ionized Calcium Urine Creatinine Coronavirus (PCR) 01/31/21 01/31/21 01/31/21 14:00 17:10 23:24 WBC RBC Hgb Hct MCV MCH MCHC RDW Lymph % (Auto) Lymph # (Auto) Seg Neutrophils % Seg Neuts % (Manual) Lymphocytes % (Manual) Seg Neutrophils # Man Lymphocytes # (Manual) D-Dimer ABG pH 7.205 L POC ABG pCO2 POC ABG pO2 ABG pO2 90.9 H ABG HCO3 26.5 H ABG O2 Saturation ABG Base Excess -2.7 L ABG Hemoglobin 12.3 L ABG Oxyhemoglobin ABG Sodium ABG Potassium ABG Chloride ABG Glucose Oxyhemoglobin 93.9 L Carboxyhemoglobin Sodium Potassium Chloride Carbon Dioxide BUN Creatinine Glucose POC Glucose 190 H 203 H Lactic Acid Calcium Magnesium Ferritin Total Bilirubin AST ALT Lactate Dehydrogenase C-Reactive Protein Albumin Triglycerides Arterial Blood Glucose Arterial Blood Ionized Calcium Urine Creatinine Coronavirus (PCR) 02/01/21 02/01/21 05:15 10:20 WBC RBC Hgb Hct MCV MCH MCHC RDW Lymph % (Auto) Lymph # (Auto) Seg Neutrophils % Seg Neuts % (Manual) Lymphocytes % (Manual) Seg Neutrophils # Man Lymphocytes # (Manual) D-Dimer ABG pH 6.920 L* 7.116 L* POC ABG pCO2 POC ABG pO2 ABG pO2 102.9 H 113.1 H ABG HCO3 28.2 H ABG O2 Saturation 92.9 L ABG Base Excess -6.9 L -5.8 L ABG Hemoglobin 11.6 L 9.5 L ABG Oxyhemoglobin ABG Sodium ABG Potassium ABG Chloride ABG Glucose Oxyhemoglobin 90.5 L 94.6 L Carboxyhemoglobin Sodium Potassium Chloride Carbon Dioxide BUN Creatinine Glucose POC Glucose Lactic Acid Calcium Magnesium Ferritin Total Bilirubin AST ALT Lactate Dehydrogenase C-Reactive Protein Albumin Triglycerides Arterial Blood Glucose Arterial Blood Ionized Calcium Urine Creatinine Coronavirus (PCR)
[2021-02-01 13:24] LABS: Calcium 7.4 mg/dL (8.4-10.2)
[2021-02-01 16:26] LABS: ABG Base Excess -6.5 mmol/L (-2.0-3.0); ABG HCO3 22.9 mmol/L (20.0-26.0); ABG Methemoglobin 0.7 % (0.0-1.5); ABG Oxygen Saturation 95.9 % (95.0-99.0); ABG PCO2 63.8 mm Hg; ABG PO2 94.6 mm Hg (80.0-90.0)
[2021-02-01 16:47] LABS: ABG PH 7.155 pH Units (7.350-7.450)
[2021-02-01] MEDS ORDERED: SODIUM BICARB 8.4% 50 MEQ/50 ML SYRINGE IV STA (17:05)
[2021-02-02] MEDS: fentaNYL DRIP Premix 2,000 MCG/100 ML BAG IV SCH ×6 (01:31→20:45)
[2021-02-02] MEDS: dexmedeTOMIDine 1,000 MCG in SODIUM CHLORIDE 0.9% 250ML 250 ML IV SCH ×4 (02:23→19:27)
[2021-02-02] MEDS: CISATRACURIUM IV SCH ×2 (03:24→09:12)
[2021-02-02] MEDS: SODIUM CHLORIDE 0.9% IV SCH ×2 (03:24→09:12)
--- NOTE | 2021-02-02 04:36 | XRay Report ---
CHEST 1 VIEW 02/02/2021 3:09 AM INDICATION / CLINICAL INFORMATION: Resp failure. COMPARISON: 01/29/2021 FINDINGS: SUPPORT DEVICES: PICC line is unchanged. NG tube is unchanged. HEART / MEDIASTINUM: Unchanged LUNGS / PLEURA: Slight improvement in bilateral pulmonary opacities. No pneumothorax. ADDITIONAL FINDINGS: No significant additional findings. IMPRESSION: 1. Slight interval improvement Signer Name: Chris Cano MD Signed: 02/02/2021 4:32 AM Workstation Name: [email or web address]
[2021-02-02 04:57] LABS: Hematocrit 30.7 % (35.5-45.6); Hemoglobin 9.8 gm/dl (11.8-15.2); Mean Corpuscular HGB Conc 32 % (32-34); Mean Corpuscular Volume 102 fl (84-94); Platelet Count 213 K/mm3 (140-440); Red Blood Count 3.02 M/mm3 (3.65-5.03); Red Cell Distribution Width 15.6 % (13.2-15.2)
[2021-02-02 04:59] LABS: Basophils % (Auto) 0.2 % (0.0-1.8); Eosinophils % (Auto) 0.3 % (0.0-4.3); Lymphocytes # (Auto) 0.3 K/mm3 (1.2-5.4); Lymphocytes % (Auto) 4.2 % (13.4-35.0); Monocytes # (Auto) 0.2 K/mm3 (0.0-0.8); Monocytes % (Auto) 2.6 % (0.0-7.3)
[2021-02-02 06:10] LABS: ABG Base Excess -5.3 mmol/L (-2.0-3.0); ABG HCO3 22.3 mmol/L (20.0-26.0); ABG Methemoglobin 0.7 % (0.0-1.5); ABG Oxygen Saturation 91.2 % (95.0-99.0); ABG PCO2 59.2 mm Hg; ABG PO2 72.5 mm Hg (80.0-90.0)
[2021-02-02 06:26] LABS: ABG PH 7.195 pH Units (7.350-7.450)
--- NOTE | 2021-02-02 07:00 | Progress Note ---
Assessment and Plan Assessment and Plan Assessment and plan: Sepsis -Patient is febrile, COVID-19 pneumonia, acute kidney injury, leukocytosis -Antibiotic therapy -ID consulted, appreciate recommendations -01/22 tracheal aspirate with normal respiratory dillon -01/22 blood cultures x2 with no growth to date -01/30 blood culture x2 with no growth after 48 hours -01/30 tracheal aspirate with few gram-positive cocci COVID-19 PNA -COVID-19 PCR positive -Pneumonia on CXR -Antibiotic therapy -Infectious disease consulted, appreciate recommendations -Contact/droplet precautions -Steroid therapy, s/p remdesivir Acute hypoxic respiratory failure -CCM consulted, appreciate recommendation -Mechanical ventilation, wean as tolerated -VAP bundle Acute kidney injury -Nephrology consulted, appreciate recommendation -Trend BMP -S/p MIVF Metabolic acidosis -Bicarb drip -S/p 2 amp of bicarb IVP Elevated D-dimer -Trend D-dimer -Bilateral lower extremity Doppler ultrasound negative for DVT/SVT -Therapeutic Lovenox Hyperchloremia -Nephrology consulted -Trend BMP Diabetes mellitus -SSI -Long-acting insulin -Accu-Cheks every 6 while on tube feedings Hypertension -Hold home antihypertensive regimen for now -Blood pressure monitor per protocol DVT/GI prophylaxis: SCDs to bilateral lower extremities while in bed, heparin s ubcu, PPI Dispo: ICU The high probability of a clinically significant, sudden or life threatening deterioration of the [multi] system(s) required my full and direct attention, intervention and personal management. The aggregate critical care time was [32] minutes. This time is in addition to time spent performing reported procedures but includes the following: [x] Data Review and interpretation [x] Patient assessment and monitoring of vital signs [x] Documentation [x] Medication orders and management Subjective Date of service: 02/01/21 Principal diagnosis: DEISI Interval history: History Interval history: This is a 60-year-old male with diabetes mellitus, hypertension, hyperlipidemia, chronic renal insufficiency presents to the emergency department on 01/23 with shortness of breath, fevers chills, loss of smell and taste and body aches for the past 3 days via EMS. Per EMS patient's oxygen saturation on room air was 50% and after being placed on nonrebreather it increased 75%. Upon arrival to the emergency department patient was being bagged by EMS. In the emergency room patient was intubated due to severe hypoxia, increased work of breathing and lethargy. Patient was sedated on propofol and fentanyl. Patient presented with fever, tachycardia, tachypnea and acute hypoxic respiratory failure with PNA on CXR meeting Sepsis criteria. Lab work in the emergency department revealed hyponatremia, hypokalemia, hypochloremia, elevated CR/BUN and CXR showed bilateral pneumonia. Patient was admitted to the hospital service as a COVID-19 PUI with consults to infectious disease, nephrology and critical care medicine. 01/24/2021: Patient is intubated and sedated, patient is positive for COVID-19 infection. ID was consulted and put on dexamethasone and remdesivir. Patient has DEISI and nephrology is following. Creatinine stable, patient is urinating. Discussed with nephrology and he is okay with remdesivir. Pulmonary critical care is following for his vent setting. PEEP of 8 and FiO2 of 85%. Patient was alert and off sedatives. 01/25/2021; patient is intubated and on mechanical ventilation. Continue with treatment of Covid. Nephrology and ID is following. Pulmonary is following for vent management 01/26: Remains on mechanical ventilation and [facility] increased his PEEP. [facility] has ordered Precedex for sedation. Possibly need to prone this p.m. No acute events reported overnight. This morning his D-dimer is greater than 10,000 and we have started him on Lovenox 120 mg daily. Nutrition has been consulted for initiation of tube feedings. Patient remains sedated on propofol 40 and fentanyl for the time my examination this morning. 01/27: Continue Lovenox, remdesivir and empiric antibiotics. Patient had a T-max of 101 overnight. The time of examination patient is on CMV 500/18/14/0.61. Kidney function slightly worsened. Sedated on fentanyl ground-level fall and Precedex. Nephrology has increased IV fluids to 100 ml/hr. Continue to trend BMP and CBC. Sedation vacation attempt by RN this AM. 01/28: Patient completed antibiotics today [facility] will paralyze patient and increase sedation. PICC line ordered for possible vasopressor therapy need. Patient's D-dimer remains greater than 10,000 and he still has hyperchloremia. Patient's kidney function has improved today. May need to prone the patient if no i mprovement in oxygenation is noted in the next 24 hours. The time of my examination patient is sedated with propofol, fentanyl and Precedex and is on assist control 500/18/16/0.80 hypoxic on ABG on 60% FiO2. 01/29: Patient was started on Nimbex yesterday and his ABG this morning showed respiratory acidosis with hypercapnia and his respiratory rate was increased. We will obtain a repeat ABG this afternoon. This morning patient is hypernatremic, hyperkalemic and hyperchloremic. His potassium has been corrected with the management and will obtain repeat BMP tomorrow. His kidney functions have remained stable and we will await nephrology's input. No acute events reported overnight. This morning the time my examination patient sedated with propofol, Precedex and fentanyl and paralyzed with Nimbex. He is on assist control 500/24/16 0.80. 01/30: This morning patient is hypokalemic again and was given Kayexalate. Patient has hypernatremia and hyper chloremia and his renal function is slightly worse after receiving Lasix yesterday. His D-dimer remains greater than 10,000 and he is still on a paralytic. Patient is sedated on Precedex, fentanyl, propofol. Mechanical ventilation settings seven-point 2/69/61/28. [facility] has decided to continue paralytics for 48 more hours and will attempt proning the patient. She has increased free water flushes 300 cc every 4 hours. Patient states has restarted his antibiotics cefepime and vancomycin and recultured. 01/31/21 Hyperkalemia Treated 02/01/21 Hyperkalemia Treated Objective - Constitutional Vitals: Vital Signs - 12hr 02/01/21 02/01/21 02/01/21 19:00 19:15 19:30 Temperature Pulse Rate 79 79 79 Pulse Rate [ From Monitor] Respiratory 12 7 L 13 Rate Blood Pressure 118/63 116/58 120/61 O2 Sat by Pulse 95 95 95 Oximetry 02/01/21 02/01/21 02/01/21 19:45 20:00 20:15 Temperature 98.4 F Pulse Rate 78 80 81 Pulse Rate [ 80 From Monitor] Respiratory 13 30 H 30 H Rate Blood Pressure 117/58 115/59 117/59 O2 Sat by Pulse 95 94 94 Oximetry 02/01/21 02/01/21 02/01/21 20:30 20:45 20:50 Temperature Pulse Rate 82 82 93 H Pulse Rate [ From Monitor] Respiratory 30 H 30 H Rate Blood Pressure 115/57 113/57 113/57 O2 Sat by Pulse 94 93 93 Oximetry 02/01/21 02/01/21 02/01/21 21:00 21:15 21:30 Temperature Pulse Rate 85 88 95 H Pulse Rate [ From Monitor] Respiratory 9 L 30 H 30 H Rate Blood Pressure 116/56 112/50 114/56 O2 Sat by Pulse 94 93 93 Oximetry 02/01/21 02/01/21 02/01/21 21:45 22:00 22:15 Temperature Pulse Rate 96 H 94 H 90 Pulse Rate [ From Monitor] Respiratory 11 L 9 L 30 H Rate Blood Pressure 112/54 108/52 117/57 O2 Sat by Pulse 93 92 93 Oximetry 02/01/21 02/01/21 02/01/21 22:30 22:45 23:00 Temperature Pulse Rate 86 84 81 Pulse Rate [ From Monitor] Respiratory 10 L 20 30 H Rate Blood Pressure 110/56 115/58 116/58 O2 Sat by Pulse 92 93 93 Oximetry 02/01/21 02/01/21 02/01/21 23:15 23:30 23:36 Temperature Pulse Rate 80 80 80 Pulse Rate [ From Monitor] Respiratory 30 H 19 Rate Blood Pressure 115/58 116/58 116/58 O2 Sat by Pulse 93 93 94 Oximetry 02/01/21 02/01/21 02/02/21 23:45 23:50 00:00 Temperature 98.6 F Pulse Rate 80 80 80 Pulse Rate [ 79 From Monitor] Respiratory 15 18 17 Rate Blood Pressure 117/58 117/58 115/59 O2 Sat by Pulse 93 93 94 Oximetry 02/02/21 02/02/21 02/02/21 00:15 00:30 00:45 Temperature Pulse Rate 79 79 79 Pulse Rate [ From Monitor] Respiratory 30 H 18 12 Rate Blood Pressure 115/59 116/58 118/58 O2 Sat by Pulse 94 94 94 Oximetry 02/02/21 02/02/21 02/02/21 01:00 01:15 01:30 Temperature Pulse Rate 79 79 79 Pulse Rate [ From Monitor] Respiratory 30 H 14 14 Rate Blood Pressure 116/58 113/57 116/58 O2 Sat by Pulse 94 94 94 Oximetry 02/02/21 02/02/21 02/02/21 01:45 02:00 02:15 Temperature Pulse Rate 79 80 80 Pulse Rate [ From Monitor] Respiratory 30 H 26 H 11 L Rate Blood Pressure 114/57 113/57 116/56 O2 Sat by Pulse 94 94 94 Oximetry 02/02/21 02/02/21 02/02/21 02:30 02:45 03:00 Temperature Pulse Rate 80 81 80 Pulse Rate [ From Monitor] Respiratory 12 24 30 H Rate Blood Pressure 113/56 116/58 115/55 O2 Sat by Pulse 94 94 94 Oximetry 02/02/21 02/02/21 02/02/21 03:15 03:30 03:45 Temperature Pulse Rate 81 85 90 Pulse Rate [ From Monitor] Respiratory 30 H 30 H 30 H Rate Blood Pressure 111/56 118/55 117/52 O2 Sat by Pulse 93 93 93 Oximetry 02/02/21 02/02/21 02/02/21 04:00 04:15 04:30 Temperature 98.6 F Pulse Rate 93 H 99 H 96 H Pulse Rate [ 93 H From Monitor] Respiratory 22 22 30 H Rate Blood Pressure 117/54 122/64 113/55 O2 Sat by Pulse 93 91 92 Oximetry 02/02/21 02/02/21 02/02/21 04:45 04:46 05:00 Temperature Pulse Rate 91 H 91 H 87 Pulse Rate [ From Monitor] Respiratory 30 H 30 H Rate Blood Pressure 114/57 114/57 115/56 O2 Sat by Pulse 92 92 90 Oximetry 02/02/21 02/02/21 02/02/21 05:15 05:30 05:45 Temperature Pulse Rate 84 82 80 Pulse Rate [ From Monitor] Respiratory 30 H 30 H 30 H Rate Blood Pressure 115/56 114/59 117/60 O2 Sat by Pulse 91 91 91 Oximetry 02/02/21 06:00 Temperature Pulse Rate 80 Pulse Rate [ From Monitor] Respiratory 30 H Rate Blood Pressure 117/57 O2 Sat by Pulse 91 Oximetry General appearance: Present: no acute distress, well-nourished - EENT Eyes: PERRL, EOM intact ENT: hearing intact, clear oral mucosa Ears: bilateral: normal - Neck Neck: supple, normal ROM - Respiratory Respiratory effort: normal Respiratory: bilateral: CTA - Breasts Breasts: normal - Cardiovascular Heart rate: 78 Rhythm: regular Heart Sounds: Present: S1 & S2. Absent: gallop, rub Extremities: pulses intact, No edema, normal color, Full ROM - Gastrointestinal General gastrointestinal: Present: soft, non-tender, non-distended, normal bowel sounds - Genitourinary Male genitourinary: normal - Integumentary Integumentary: clear, warm, dry - Musculoskeletal Musculoskeletal: 1, strength equal bilaterally - Neurologic Neurologic: moves all extremities - Psychiatric Psychiatric: memory intact, appropriate mood/affect, intact judgment & insight - Labs CBC & Chem 7: 02/03/21 04:10 02/03/21 04:10 Labs: Abnormal lab results 02/01/21 02/01/21 02/01/21 Range/Units 06:22 10:20 11:12 RBC (3.65-5.03) M/mm3 Hgb (11.8-15.2) gm/dl Hct (35.5-45.6) % MCV (84-94) fl RDW (13.2-15.2) % Lymph % (Auto) (13.4-35.0) % Lymph # (Auto) (1.2-5.4) K/mm3 ABG pH 7.116 L* (7.350-7.450) pH Units ABG pO2 113.1 H (80.0-90.0) mm Hg ABG O2 Saturation (95.0-99.0) % ABG Base Excess -5.8 L (-2.0-3.0) mmol/L ABG Hemoglobin 9.5 L (14.0-18.0) gm/dl Oxyhemoglobin 94.6 L (95.0-99.0) % Sodium (137-145) mmol/L Potassium (3.6-5.0) mmol/L Chloride (98-107) mmol/L BUN (9-20) mg/dL Creatinine (0.8-1.3) mg/dL Glucose (75-100) mg/dL POC Glucose 221 H 207 H (70-105) mg/dL Calcium (8.4-10.2) mg/dL 02/01/21 02/01/21 02/01/21 Range/Units 12:35 16:00 17:10 RBC (3.65-5.03) M/mm3 Hgb (11.8-15.2) gm/dl Hct (35.5-45.6) % MCV (84-94) fl RDW (13.2-15.2) % Lymph % (Auto) (13.4-35.0) % Lymph # (Auto) (1.2-5.4) K/mm3 ABG pH 7.155 L* (7.350-7.450) pH Units ABG pO2 94.6 H (80.0-90.0) mm Hg ABG O2 Saturation (95.0-99.0) % ABG Base Excess -6.5 L (-2.0-3.0) mmol/L ABG Hemoglobin 13.1 L (14.0-18.0) gm/dl Oxyhemoglobin 93.7 L (95.0-99.0) % Sodium 155 H (137-145) mmol/L Potassium 5.1 H (3.6-5.0) mmol/L Chloride 120.5 H (98-107) mmol/L BUN 90 H (9-20) mg/dL Creatinine 6.1 H D (0.8-1.3) mg/dL Glucose 238 H (75-100) mg/dL POC Glucose 238 H (70-105) mg/dL Calcium 7.4 L (8.4-10.2) mg/dL 02/01/21 02/02/21 02/02/21 Range/Units 23:47 04:04 05:18 RBC 3.02 L (3.65-5.03) M/mm3 Hgb 9.8 L (11.8-15.2) gm/dl Hct 30.7 L (35.5-45.6) % MCV 102 H (84-94) fl RDW 15.6 H (13.2-15.2) % Lymph % (Auto) 4.2 L (13.4-35.0) % Lymph # (Auto) 0.3 L (1.2-5.4) K/mm3 ABG pH (7.350-7.450) pH Units ABG pO2 (80.0-90.0) mm Hg ABG O2 Saturation (95.0-99.0) % ABG Base Excess (-2.0-3.0) mmol/L ABG Hemoglobin (14.0-18.0) gm/dl Oxyhemoglobin (95.0-99.0) % Sodium (137-145) mmol/L Potassium (3.6-5.0) mmol/L Chloride (98-107) mmol/L BUN (9-20) mg/dL Creatinine (0.8-1.3) mg/dL Glucose (75-100) mg/dL POC Glucose 235 H 239 H (70-105) mg/dL Calcium (8.4-10.2) mg/dL 02/02/21 Range/Units 05:35 RBC (3.65-5.03) M/mm3 Hgb (11.8-15.2) gm/dl Hct (35.5-45.6) % MCV (84-94) fl RDW (13.2-15.2) % Lymph % (Auto) (13.4-35.0) % Lymph # (Auto) (1.2-5.4) K/mm3 ABG pH 7.195 L* (7.350-7.450) pH Units ABG pO2 72.5 L (80.0-90.0) mm Hg ABG O2 Saturation 91.2 L (95.0-99.0) % ABG Base Excess -5.3 L (-2.0-3.0) mmol/L ABG Hemoglobin 6.0 L (14.0-18.0) gm/dl Oxyhemoglobin 89.1 L (95.0-99.0) % Sodium (137-145) mmol/L Potassium (3.6-5.0) mmol/L Chloride (98-107) mmol/L BUN (9-20) mg/dL Creatinine (0.8-1.3) mg/dL Glucose (75-100) mg/dL POC Glucose (70-105) mg/dL Calcium (8.4-10.2) mg/dL HEART Score - HEART Score Risk factors: 1-2 risk factors Troponin: < normal limit - Critical Actions Critical Actions: 0-3 pts:0.9-1.7%risk of adverse cardiac event.Candidate for discharge
--- NOTE | 2021-02-02 08:56 | Progress Note ---
Assessment and Plan Hypoxic resp failure possible COVID-19 PNA Hyperkalemia Acute renal failure secondary to tubular necorsis Hypernatremia cont to have rising BUN and Cr, awaiting AM labs, will likely need to initiate HD today, discussed with ICU team discussed with RN, will increase free water flushes to 300 cc Q4H, and restart D5W with sodium bicarb 75 meq @ 100 cc/h Strict I&O daily weight avoid nephrotoxins Renally dose meds Carlton Pitts MD [phone] Subjective Date of service: 02/02/21 Principal diagnosis: DEISI Interval history: on isolation for COVID-19, contt o require low dose levophed Objective - Vital Signs Vital signs: Vital Signs - 12hr 02/01/21 02/01/21 02/01/21 21:00 21:15 21:30 Temperature Pulse Rate 85 88 95 H Pulse Rate [ From Monitor] Respiratory 9 L 30 H 30 H Rate Blood Pressure 116/56 112/50 114/56 O2 Sat by Pulse 94 93 93 Oximetry 02/01/21 02/01/21 02/01/21 21:45 22:00 22:15 Temperature Pulse Rate 96 H 94 H 90 Pulse Rate [ From Monitor] Respiratory 11 L 9 L 30 H Rate Blood Pressure 112/54 108/52 117/57 O2 Sat by Pulse 93 92 93 Oximetry 02/01/21 02/01/21 02/01/21 22:30 22:45 23:00 Temperature Pulse Rate 86 84 81 Pulse Rate [ From Monitor] Respiratory 10 L 20 30 H Rate Blood Pressure 110/56 115/58 116/58 O2 Sat by Pulse 92 93 93 Oximetry 02/01/21 02/01/21 02/01/21 23:15 23:30 23:36 Temperature Pulse Rate 80 80 80 Pulse Rate [ From Monitor] Respiratory 30 H 19 Rate Blood Pressure 115/58 116/58 116/58 O2 Sat by Pulse 93 93 94 Oximetry 02/01/21 02/01/21 02/02/21 23:45 23:50 00:00 Temperature 98.6 F Pulse Rate 80 80 80 Pulse Rate [ 79 From Monitor] Respiratory 15 18 17 Rate Blood Pressure 117/58 117/58 115/59 O2 Sat by Pulse 93 93 94 Oximetry 02/02/21 02/02/21 02/02/21 00:15 00:30 00:45 Temperature Pulse Rate 79 79 79 Pulse Rate [ From Monitor] Respiratory 30 H 18 12 Rate Blood Pressure 115/59 116/58 118/58 O2 Sat by Pulse 94 94 94 Oximetry 02/02/21 02/02/21 02/02/21 01:00 01:15 01:30 Temperature Pulse Rate 79 79 79 Pulse Rate [ From Monitor] Respiratory 30 H 14 14 Rate Blood Pressure 116/58 113/57 116/58 O2 Sat by Pulse 94 94 94 Oximetry 02/02/21 02/02/21 02/02/21 01:45 02:00 02:15 Temperature Pulse Rate 79 80 80 Pulse Rate [ From Monitor] Respiratory 30 H 26 H 11 L Rate Blood Pressure 114/57 113/57 116/56 O2 Sat by Pulse 94 94 94 Oximetry 02/02/21 02/02/21 02/02/21 02:30 02:45 03:00 Temperature Pulse Rate 80 81 80 Pulse Rate [ From Monitor] Respiratory 12 24 30 H Rate Blood Pressure 113/56 116/58 115/55 O2 Sat by Pulse 94 94 94 Oximetry 02/02/21 02/02/21 02/02/21 03:15 03:30 03:45 Temperature Pulse Rate 81 85 90 Pulse Rate [ From Monitor] Respiratory 30 H 30 H 30 H Rate Blood Pressure 111/56 118/55 117/52 O2 Sat by Pulse 93 93 93 Oximetry 02/02/21 02/02/21 02/02/21 04:00 04:15 04:30 Temperature 98.6 F Pulse Rate 93 H 99 H 96 H Pulse Rate [ 93 H From Monitor] Respiratory 22 22 30 H Rate Blood Pressure 117/54 122/64 113/55 O2 Sat by Pulse 93 91 92 Oximetry 02/02/21 02/02/21 02/02/21 04:45 04:46 05:00 Temperature Pulse Rate 91 H 91 H 87 Pulse Rate [ From Monitor] Respiratory 30 H 30 H Rate Blood Pressure 114/57 114/57 115/56 O2 Sat by Pulse 92 92 90 Oximetry 02/02/21 02/02/21 02/02/21 05:15 05:30 05:45 Temperature Pulse Rate 84 82 80 Pulse Rate [ From Monitor] Respiratory 30 H 30 H 30 H Rate Blood Pressure 115/56 114/59 117/60 O2 Sat by Pulse 91 91 91 Oximetry 02/02/21 02/02/21 06:00 07:33 Temperature 99.7 F H Pulse Rate 80 Pulse Rate [ From Monitor] Respiratory 30 H Rate Blood Pressure 117/57 O2 Sat by Pulse 91 Oximetry - Lab 02/02/21 04:04 02/01/21 12:35 Most recent lab results ABG pH 7.195 pH Units (7.350-7.450) L* 02/02/21 05:35 ABG pCO2 59.2 mm Hg 02/02/21 05:35 ABG pO2 72.5 mm Hg (80.0-90.0) L 02/02/21 05:35 ABG HCO3 22.3 mmol/L (20.0-26.0) 02/02/21 05:35 ABG O2 Saturation 91.2 % (95.0-99.0) L 02/02/21 05:35 Calcium 7.4 mg/dL (8.4-10.2) L 02/01/21 12:35 Magnesium 2.60 mg/dL (1.7-2.3) H 01/30/21 06:00 Urine Creatinine 53.0 mg/dL (0.1-20.0) H 01/30/21 12:00 Urine Sodium 28 mmol/L 01/22/21 22:39 Medications & Allergies - Medications Allergies/Adverse Reactions: Allergies No Known Allergies Allergy (Unverified 03/12/20 13:41) Home Medications: Home Medications Medication Instructions Recorded Confirmed Last Taken Type Clindamycin [Clindamycin CAP] 300 mg PO Q8H #21 cap 03/12/20 Unknown Rx Insulin NPH/Regular [Novolin 70/30] 18 unit SUB-Q TIDAC #1 vial 03/12/20 Unknown Rx Syringe-Needle,Insulin,0.5 ml 1 box MC TID #1 box 03/12/20 Unknown Rx [Insulin Syringe/Needle 0.5 ML] Active Medications: Generic Name Dose Route Start Last Admin Trade Name Freq PRN Reason Stop Dose Admin Acetaminophen 650 mg 01/23/21 02:25 Acetaminophen 650 Mg Rect Supp NM Q4H PRN Pain, Mild (1-3) Acetaminophen 650 mg 01/24/21 12:58 01/29/21 18:28 Acetaminophen 325 Mg/10.15 Ml Oral Liqd Unit Dose FEEDTUBE 650 mg Q6H PRN Administration Pain, Mild (1-3) Lipase/Protease/Amylase 1 each 01/26/21 14:25 Lipase 10,500/Protease 25,000/Amylase 43,750 (Units) Dr Cap FEEDTUBE PRN PRN For Clogged Feeding Tube Dextrose 50 ml 01/27/21 07:24 Dextrose 50% In Water (25gm) 50 Ml Syringe IV Q30MIN PRN Hypoglycemia Protocol Enoxaparin Sodium 120 mg 01/26/21 11:00 02/01/21 09:34 Enoxaparin 120 Mg/0.8 Ml Inj SUB-Q 120 mg Q24HR CECE Administration Famotidine 20 mg 01/24/21 10:00 02/01/21 09:08 Famotidine 20 Mg/2 Ml Inj IV 20 mg DAILY CECE Administration Fentanyl 50 mcg 01/22/21 22:39 Fentanyl 100 Mcg/2 Ml Inj IV Q10MIN PRN ANALGESIA Hydrophilic Ointment 1 applic 01/22/21 22:39 Lip Therapy Vaseline TP Q2HR PRN Dry Lips Fentanyl Citrate 2,000 mcg in 100 mls @ 6.124 mls/hr 01/22/21 23:00 02/02/21 05:38 Fentanyl Drip Premix IV 4 mcg/kg/hr TITR CECE 24.494 mls/hr Administration Protocol 1 MCG/KG/HR Propofol 1,000 mg in 100 mls @ 3.674 mls/hr 01/22/21 23:45 02/02/21 06:03 Diprivan 10 Mg/Ml IV 45 mcg/kg/min TITR CECE 33.067 mls/hr Administration Protocol 5 MCG/KG/MIN Norepinephrine 4 mg in 250 mls @ 7.5 mls/hr 01/28/21 14:00 02/01/21 17:48 Levophed Drip 4 Mg/Ns 250 Ml IV 2 mcg/min TITR CECE 7.5 mls/hr Titration Protocol 2 MCG/MIN Cefepime HCl 1 gm in 100 mls @ 200 mls/hr 01/30/21 11:30 02/01/21 21:18 Cefepime/Ns 1 Gm/100 Ml IV 200 mls/hr Q12HR CECE Administration Protocol Dexmedetomidine HCl 1,000 mcg/ 260 mls @ 6.368 mls/hr 01/30/21 20:00 02/02/21 08:14 Sodium Chloride IV 1.4 mcg/kg/hr TITRATE CECE 44.579 mls/hr Administration Protocol 0.2 MCG/KG/HR Cisatracurium Besylate 40 mg/ 400 mls @ 73.482 mls/hr 02/01/21 18:00 02/02/21 03:24 Sodium Chloride IV 1 mcg/kg/min TITR CECE 73.482 mls/hr Administration Protocol 1 MCG/KG/MIN Sodium Bicarbonate 75 meq/ 1,075 mls @ 100 mls/hr 02/02/21 09:00 Dextrose IV 02/02/21 19:44 DIRECT ONE Multi-Ingred Cream/Lotion/Oil/Oint 1 applic 01/22/21 22:39 02/01/21 09:33 Mineral Oil/Petrolatum, White Ophth Oint 3.5 Gm OU 1 applic Q4HR PRN Administration Dry Eye(s) Ondansetron HCl 4 mg 01/23/21 02:17 Ondansetron 4 Mg/2 Ml Inj IV Q8H PRN Nausea And Vomiting Simple Syrup 15 ml 01/26/21 14:25 Simple Syrup 15 Ml FEEDTUBE PRN PRN Hypoglycemia Simple Syrup 30 ml 01/26/21 14:25 Simple Syrup 15 Ml FEEDTUBE PRN PRN Hypoglycemia Sodium Bicarbonate 325 mg 01/26/21 14:25 Sodium Bicarbonate 325 Mg Tab FEEDTUBE PRN PRN For Clogged Feeding Tube
[2021-02-02] MEDS ORDERED: SODIUM BICARBONATE 75 MEQ in DEXTROSE 5% IN WATER 1,000 ML IV ONE (09:00)
[2021-02-02] MEDS: CEFEPIME/NS 1 GM/100 ML 1 GM/100 ML BAG IV SCH (09:07)
[2021-02-02] MEDS: ENOXAPARIN 120 MG/0.8 ML INJ SUB-Q SCH (09:08)
[2021-02-02] MEDS: FAMOTIDINE 20 MG/2 ML INJ IV SCH (09:08)
--- NOTE | 2021-02-02 09:14 | Progress Note ---
Assessment and Plan 60 y/o male with ARDS secondary most likely to COVID 19 pneumonia. 02/02/21: After renal speaks with family, will place vascath today. Agree with bicarb drip but will order some pushes now to help with pH. Overall prognosis is very very guarded to poor now that patient is COVID positive and requiring renal replacement therapy. Mortality is very high in these patients. Continue steroid therapy. Unable to tolerate proning. 01/30/21: Will plan for proning later today. Goal will be at least 12hrs but long is okay. Speaking with pharmacy to see if we can get paralytic for a longer period of time. Regardless will prone. Continue heavy sedation. BP stable. Continue steroids. Very very guarded prognosis. 01/29/21: will increase tidal volume and/or increase respiratory rate. Repeat ABG this afternoon. Continue paralytic and adequate sedation. Continue steroid and remdesivir, follow up any renal recs. Prognosis remains guarded. Wean Fio2 for sats >88% 01/28/21: Increased PEEP to 16. Will paralyze patient today and increase sedation. Ordering picc line for possible vasopressor therapy needs. Continue BID steroids. Renal function is slightly better today with fluids but could be making oxygenation worse. Not able to diurese. Still making urine. Continue Remdesivir. Watch for fever curve. If not improvement in the next 24 hours with paralyzing, will prone tomorrow morning. 01/27/21: Continue PEEP at 14. No weaning until FiO2 is at or below 40-45%. Continue anticoagulation. Getting Remdesivir now. Continue BID steroids. Renal has increased the fluids. Monitor urine output and renal function. Overall prognosis is very very guarded, especially if renal status worsens. 01/26/21: Increase PEEP to 14. Will add Precedex therapy. If patient does not respond to increases in PEEP may need to prone. Will place patient on lovenox and will feed patient. Remdesivir coming. Continue BID steroids. Prognosis is guarded. 01/25/21: Hold on proning today. Continue BID steroids. ABG this AM was adequate. Pending abg tomorrow, may increase PEEP if not able to wean FiO2 any further. Per charting Remdesivir to arrive tomorrow. Guarded prognosis. 01/24/21: Continue BID steroids. No abg done this am but able to wean FiO2. Will obtain ABG in the am. Hold on proning for right now. Renal following, would like to diurese but they are given fluids for deisi. Agree with ID assessment and note. Guarded prognosis. 1. Increase steroids to BID given size 2. Check with ID to see if he is a candidate for remdesivir or any other experiemental therapy 3. Hold on proning for right now 4. Renal consulted and giving IVF's currently Guarded prognosis. CCT 31 minutes. Subjective Date of service: 02/02/21 Principal diagnosis: DEISI Interval history: Renal function worse today. Cr up to 6.1 and K is 5.5. Did not tolerate proning on Tuesday so has not been proned since. pH this am is less than 7.2. Oxygenation is better. Currently on Levophed. Heavily sedated and paralyzed. Remainder is negative. Objective Vital Signs - 12hr 02/01/21 02/01/21 02/01/21 21:15 21:30 21:45 Temperature Pulse Rate 88 95 H 96 H Pulse Rate [ From Monitor] Respiratory 30 H 30 H 11 L Rate Blood Pressure 112/50 114/56 112/54 O2 Sat by Pulse 93 93 93 Oximetry 02/01/21 02/01/21 02/01/21 22:00 22:15 22:30 Temperature Pulse Rate 94 H 90 86 Pulse Rate [ From Monitor] Respiratory 9 L 30 H 10 L Rate Blood Pressure 108/52 117/57 110/56 O2 Sat by Pulse 92 93 92 Oximetry 02/01/21 02/01/21 02/01/21 22:45 23:00 23:15 Temperature Pulse Rate 84 81 80 Pulse Rate [ From Monitor] Respiratory 20 30 H 30 H Rate Blood Pressure 115/58 116/58 115/58 O2 Sat by Pulse 93 93 93 Oximetry 02/01/21 02/01/21 02/01/21 23:30 23:36 23:45 Temperature Pulse Rate 80 80 80 Pulse Rate [ From Monitor] Respiratory 19 15 Rate Blood Pressure 116/58 116/58 117/58 O2 Sat by Pulse 93 94 93 Oximetry 02/01/21 02/02/21 02/02/21 23:50 00:00 00:15 Temperature 98.6 F Pulse Rate 80 80 79 Pulse Rate [ 79 From Monitor] Respiratory 18 17 30 H Rate Blood Pressure 117/58 115/59 115/59 O2 Sat by Pulse 93 94 94 Oximetry 02/02/21 02/02/21 02/02/21 00:30 00:45 01:00 Temperature Pulse Rate 79 79 79 Pulse Rate [ From Monitor] Respiratory 18 12 30 H Rate Blood Pressure 116/58 118/58 116/58 O2 Sat by Pulse 94 94 94 Oximetry 02/02/21 02/02/21 02/02/21 01:15 01:30 01:45 Temperature Pulse Rate 79 79 79 Pulse Rate [ From Monitor] Respiratory 14 14 30 H Rate Blood Pressure 113/57 116/58 114/57 O2 Sat by Pulse 94 94 94 Oximetry 02/02/21 02/02/21 02/02/21 02:00 02:15 02:30 Temperature Pulse Rate 80 80 80 Pulse Rate [ From Monitor] Respiratory 26 H 11 L 12 Rate Blood Pressure 113/57 116/56 113/56 O2 Sat by Pulse 94 94 94 Oximetry 02/02/21 02/02/21 02/02/21 02:45 03:00 03:15 Temperature Pulse Rate 81 80 81 Pulse Rate [ From Monitor] Respiratory 24 30 H 30 H Rate Blood Pressure 116/58 115/55 111/56 O2 Sat by Pulse 94 94 93 Oximetry 02/02/21 02/02/21 02/02/21 03:30 03:45 04:00 Temperature 98.6 F Pulse Rate 85 90 93 H Pulse Rate [ 93 H From Monitor] Respiratory 30 H 30 H 22 Rate Blood Pressure 118/55 117/52 117/54 O2 Sat by Pulse 93 93 93 Oximetry 02/02/21 02/02/21 02/02/21 04:15 04:30 04:45 Temperature Pulse Rate 99 H 96 H 91 H Pulse Rate [ From Monitor] Respiratory 22 30 H 30 H Rate Blood Pressure 122/64 113/55 114/57 O2 Sat by Pulse 91 92 92 Oximetry 02/02/21 02/02/21 02/02/21 04:46 05:00 05:15 Temperature Pulse Rate 91 H 87 84 Pulse Rate [ From Monitor] Respiratory 30 H 30 H Rate Blood Pressure 114/57 115/56 115/56 O2 Sat by Pulse 92 90 91 Oximetry 02/02/21 02/02/21 02/02/21 05:30 05:45 06:00 Temperature Pulse Rate 82 80 80 Pulse Rate [ From Monitor] Respiratory 30 H 30 H 30 H Rate Blood Pressure 114/59 117/60 117/57 O2 Sat by Pulse 91 91 91 Oximetry 02/02/21 07:33 Temperature 99.7 F H Pulse Rate Pulse Rate [ From Monitor] Respiratory Rate Blood Pressure O2 Sat by Pulse Oximetry CBC and BMP: 02/02/21 04:04 02/01/21 12:35 ABG, PT/INR, D-dimer: ABG ABG pH 7.195 pH Units (7.350-7.450) L* 02/02/21 05:35 POC ABG pCO2 69.7 mmHg (32.0-48.0) H 01/30/21 04:24 ABG pCO2 59.2 mm Hg 02/02/21 05:35 POC ABG pO2 61.0 mmHg (83-108) L 01/30/21 04:24 ABG pO2 72.5 mm Hg (80.0-90.0) L 02/02/21 05:35 POC ABG HCO3 28.9 01/30/21 04:24 ABG O2 Saturation 91.2 % (95.0-99.0) L 02/02/21 05:35 PT/INR, D-dimer D-Dimer > 38584 ng/mlDDU (0-234) H 01/30/21 04:00 Abnormal lab findings: Abnormal Labs 01/22/21 01/22/21 01/22/21 22:39 22:57 22:57 WBC RBC Hgb Hct MCV MCH MCHC RDW Lymph % (Auto) 6.6 L Lymph # (Auto) 0.5 L Seg Neutrophils % 87.6 H Seg Neuts % (Manual) Lymphocytes % (Manual) Seg Neutrophils # Man Lymphocytes # (Manual) D-Dimer ABG pH POC ABG pCO2 POC ABG pO2 ABG pO2 ABG HCO3 ABG O2 Saturation ABG Base Excess ABG Hemoglobin ABG Oxyhemoglobin ABG Sodium ABG Potassium ABG Chloride ABG Glucose Oxyhemoglobin Carboxyhemoglobin Sodium 129 L Potassium 3.4 L Chloride 90.4 L Carbon Dioxide BUN 34 H Creatinine 1.5 H Glucose 146 H POC Glucose Lactic Acid Calcium 7.8 L Magnesium Ferritin Total Bilirubin AST 75 H ALT 57 H Lactate Dehydrogenase C-Reactive Protein Albumin 2.9 L Triglycerides Arterial Blood Glucose Arterial Blood Ionized Calcium Urine Creatinine 301.2 H Coronavirus (PCR) 03/25/21 03/25/21 03/25/21 22:57 22:57 22:57 WBC RBC Hgb Hct MCV MCH MCHC RDW Lymph % (Auto) Lymph # (Auto) Seg Neutrophils % Seg Neuts % (Manual) Lymphocytes % (Manual) Seg Neutrophils # Man Lymphocytes # (Manual) D-Dimer 1173.89 H ABG pH POC ABG pCO2 POC ABG pO2 ABG pO2 ABG HCO3 ABG O2 Saturation ABG Base Excess ABG Hemoglobin ABG Oxyhemoglobin ABG Sodium ABG Potassium ABG Chloride ABG Glucose Oxyhemoglobin Carboxyhemoglobin Sodium Potassium Chloride Carbon Dioxide BUN Creatinine Glucose 149 H POC Glucose Lactic Acid 2.10 H* Calcium Magnesium Ferritin Total Bilirubin AST ALT Lactate Dehydrogenase 685 H C-Reactive Protein 30.40 H Albumin Triglycerides Arterial Blood Glucose Arterial Blood Ionized Calcium Urine Creatinine Coronavirus (PCR) 01/22/21 01/23/21 01/23/21 22:57 08:41 10:01 WBC RBC Hgb Hct MCV MCH MCHC RDW Lymph % (Auto) Lymph # (Auto) Seg Neutrophils % Seg Neuts % (Manual) Lymphocytes % (Manual) Seg Neutrophils # Man Lymphocytes # (Manual) D-Dimer ABG pH POC ABG pCO2 POC ABG pO2 ABG pO2 ABG HCO3 ABG O2 Saturation ABG Base Excess ABG Hemoglobin ABG Oxyhemoglobin ABG Sodium ABG Potassium ABG Chloride ABG Glucose Oxyhemoglobin Carboxyhemoglobin Sodium 131 L Potassium Chloride 88.7 L Carbon Dioxide 18 L BUN 36 H Creatinine 1.6 H Glucose 147 H POC Glucose Lactic Acid Calcium 7.5 L Magnesium Ferritin 1207.0 H Total Bilirubin AST ALT Lactate Dehydrogenase C-Reactive Protein Albumin Triglycerides Arterial Blood Glucose Arterial Blood Ionized Calcium Urine Creatinine Coronavirus (PCR) Positive A 01/23/21 01/23/21 01/24/21 20:49 Unknown 00:10 WBC RBC Hgb Hct MCV MCH MCHC RDW Lymph % (Auto) Lymph # (Auto) Seg Neutrophils % Seg Neuts % (Manual) Lymphocytes % (Manual) Seg Neutrophils # Man Lymphocytes # (Manual) D-Dimer ABG pH POC ABG pCO2 POC ABG pO2 ABG pO2 165.4 H ABG HCO3 ABG O2 Saturation ABG Base Excess -2.5 L ABG Hemoglobin ABG Oxyhemoglobin ABG Sodium ABG Potassium ABG Chloride ABG Glucose Oxyhemoglobin Carboxyhemoglobin Sodium 130 L Potassium Chloride 91.0 L Carbon Dioxide 20 L BUN 52 H Creatinine 3.8 H D Glucose 150 H POC Glucose 125 H Lactic Acid Calcium 8.0 L Magnesium Ferritin Total Bilirubin AST 42 H ALT Lactate Dehydrogenase C-Reactive Protein Albumin 2.4 L Triglycerides Arterial Blood Glucose Arterial Blood Ionized Calcium Urine Creatinine Coronavirus (PCR) 01/24/21 01/24/21 01/24/21 05:05 05:05 05:05 WBC 14.0 H RBC Hgb Hct MCV 95 H MCH 33 H MCHC RDW Lymph % (Auto) Lymph # (Auto) Seg Neutrophils % Seg Neuts % (Manual) 91.0 H Lymphocytes % (Manual) 4.0 L Seg Neutrophils # Man 12.7 H Lymphocytes # (Manual) 0.6 L D-Dimer 6159.48 H ABG pH POC ABG pCO2 POC ABG pO2 ABG pO2 ABG HCO3 ABG O2 Saturation ABG Base Excess ABG Hemoglobin ABG Oxyhemoglobin ABG Sodium ABG Potassium ABG Chloride ABG Glucose Oxyhemoglobin Carboxyhemoglobin Sodium Potassium Chloride Carbon Dioxide BUN Creatinine Glucose POC Glucose Lactic Acid Calcium Magnesium Ferritin 1178.0 H Total Bilirubin AST ALT Lactate Dehydrogenase C-Reactive Protein Albumin Triglycerides Arterial Blood Glucose Arterial Blood Ionized Calcium Urine Creatinine Coronavirus (PCR) 01/24/21 01/24/21 01/24/21 05:05 05:05 05:05 WBC RBC Hgb Hct MCV MCH MCHC RDW Lymph % (Auto) Lymph # (Auto) Seg Neutrophils % Seg Neuts % (Manual) Lymphocytes % (Manual) Seg Neutrophils # Man Lymphocytes # (Manual) D-Dimer ABG pH POC ABG pCO2 POC ABG pO2 ABG pO2 ABG HCO3 ABG O2 Saturation ABG Base Excess ABG Hemoglobin ABG Oxyhemoglobin ABG Sodium ABG Potassium ABG Chloride ABG Glucose Oxyhemoglobin Carboxyhemoglobin Sodium 132 L Potassium Chloride 93.1 L Carbon Dioxide 21 L BUN 57 H Creatinine 3.7 H Glucose 133 H POC Glucose Lactic Acid 2.20 H* Calcium 7.7 L Magnesium Ferritin Total Bilirubin AST ALT Lactate Dehydrogenase 658 H C-Reactive Protein 33.20 H Albumin 2.4 L Triglycerides Arterial Blood Glucose Arterial Blood Ionized Calcium Urine Creatinine Coronavirus (PCR) 01/24/21 01/24/21 01/24/21 05:34 06:00 17:35 WBC RBC Hgb Hct MCV MCH MCHC RDW Lymph % (Auto) Lymph # (Auto) Seg Neutrophils % Seg Neuts % (Manual) Lymphocytes % (Manual) Seg Neutrophils # Man Lymphocytes # (Manual) D-Dimer ABG pH POC ABG pCO2 POC ABG pO2 ABG pO2 ABG HCO3 ABG O2 Saturation ABG Base Excess ABG Hemoglobin ABG Oxyhemoglobin ABG Sodium ABG Potassium ABG Chloride ABG Glucose Oxyhemoglobin Carboxyhemoglobin Sodium Potassium Chloride Carbon Dioxide BUN Creatinine Glucose POC Glucose 136 H 137 H Lactic Acid Calcium Magnesium 2.80 H Ferritin Total Bilirubin AST ALT Lactate Dehydrogenase C-Reactive Protein Albumin Triglycerides Arterial Blood Glucose Arterial Blood Ionized Calcium Urine Creatinine Coronavirus (PCR) 01/25/21 01/25/21 01/25/21 04:15 05:40 05:40 WBC RBC Hgb Hct MCV 95 H MCH 33 H MCHC 35 H RDW Lymph % (Auto) Lymph # (Auto) Seg Neutrophils % Seg Neuts % (Manual) 95.0 H Lymphocytes % (Manual) 3.0 L Seg Neutrophils # Man 7.8 H Lymphocytes # (Manual) 0.2 L D-Dimer ABG pH POC ABG pCO2 POC ABG pO2 63.2 L ABG pO2 ABG HCO3 ABG O2 Saturation ABG Base Excess ABG Hemoglobin ABG Oxyhemoglobin 89.6 L ABG Sodium ABG Potassium ABG Chloride ABG Glucose 165 H Oxyhemoglobin Carboxyhemoglobin 0.3 L Sodium Potassium Chloride Carbon Dioxide BUN 67 H Creatinine 3.4 H Glucose 153 H POC Glucose Lactic Acid Calcium 7.5 L Magnesium Ferritin Total Bilirubin 1.40 H AST 62 H ALT Lactate Dehydrogenase C-Reactive Protein Albumin 2.6 L Triglycerides Arterial Blood Glucose 165 H Arterial Blood Ionized Calcium 4.3 L Urine Creatinine Coronavirus (PCR) 01/25/21 01/25/21 01/25/21 05:59 12:00 17:17 WBC RBC Hgb Hct MCV MCH MCHC RDW Lymph % (Auto) Lymph # (Auto) Seg Neutrophils % Seg Neuts % (Manual) Lymphocytes % (Manual) Seg Neutrophils # Man Lymphocytes # (Manual) D-Dimer ABG pH POC ABG pCO2 POC ABG pO2 ABG pO2 ABG HCO3 ABG O2 Saturation ABG Base Excess ABG Hemoglobin ABG Oxyhemoglobin ABG Sodium ABG Potassium ABG Chloride ABG Glucose Oxyhemoglobin Carboxyhemoglobin Sodium Potassium Chloride Carbon Dioxide BUN Creatinine Glucose POC Glucose 140 H 143 H 149 H Lactic Acid Calcium Magnesium Ferritin Total Bilirubin AST ALT Lactate Dehydrogenase C-Reactive Protein Albumin Triglycerides Arterial Blood Glucose Arterial Blood Ionized Calcium Urine Creatinine Coronavirus (PCR) 01/25/21 01/26/21 01/26/21 23:41 03:43 05:46 WBC RBC Hgb Hct MCV MCH MCHC RDW Lymph % (Auto) Lymph # (Auto) Seg Neutrophils % Seg Neuts % (Manual) Lymphocytes % (Manual) Seg Neutrophils # Man Lymphocytes # (Manual) D-Dimer ABG pH POC ABG pCO2 POC ABG pO2 70.0 L ABG pO2 ABG HCO3 ABG O2 Saturation ABG Base Excess ABG Hemoglobin ABG Oxyhemoglobin 91.9 L ABG Sodium ABG Potassium ABG Chloride 109.0 H ABG Glucose 165 H Oxyhemoglobin Carboxyhemoglobin Sodium Potassium Chloride Carbon Dioxide BUN Creatinine Glucose POC Glucose 132 H 161 H Lactic Acid Calcium Magnesium Ferritin Total Bilirubin AST ALT Lactate Dehydrogenase C-Reactive Protein Albumin Triglycerides Arterial Blood Glucose 165 H Arterial Blood Ionized Calcium 4.5 L Urine Creatinine Coronavirus (PCR) 01/26/21 01/26/21 01/26/21 05:47 05:47 05:47 WBC RBC Hgb Hct 35.3 L MCV 96 H MCH 33 H MCHC RDW Lymph % (Auto) Lymph # (Auto) Seg Neutrophils % Seg Neuts % (Manual) 96.0 H Lymphocytes % (Manual) 2.0 L Seg Neutrophils # Man Lymphocytes # (Manual) 0.1 L D-Dimer > 16060 H ABG pH POC ABG pCO2 POC ABG pO2 ABG pO2 ABG HCO3 ABG O2 Saturation ABG Base Excess ABG Hemoglobin ABG Oxyhemoglobin ABG Sodium ABG Potassium ABG Chloride ABG Glucose Oxyhemoglobin Carboxyhemoglobin Sodium Potassium Chloride Carbon Dioxide BUN 57 H Creatinine 2.2 H Glucose 185 H POC Glucose Lactic Acid Calcium 8.1 L Magnesium Ferritin Total Bilirubin AST ALT Lactate Dehydrogenase C-Reactive Protein Albumin Triglycerides Arterial Blood Glucose Arterial Blood Ionized Calcium Urine Creatinine Coronavirus (PCR) 01/26/21 01/26/21 01/26/21 05:47 05:47 05:47 WBC RBC Hgb Hct MCV MCH MCHC RDW Lymph % (Auto) Lymph # (Auto) Seg Neutrophils % Seg Neuts % (Manual) Lymphocytes % (Manual) Seg Neutrophils # Man Lymphocytes # (Manual) D-Dimer ABG pH POC ABG pCO2 POC ABG pO2 ABG pO2 ABG HCO3 ABG O2 Saturation ABG Base Excess ABG Hemoglobin ABG Oxyhemoglobin ABG Sodium ABG Potassium ABG Chloride ABG Glucose Oxyhemoglobin Carboxyhemoglobin Sodium Potassium Chloride 107.1 H Carbon Dioxide BUN 56 H Creatinine 2.2 H Glucose 188 H POC Glucose Lactic Acid Calcium 8.0 L Magnesium Ferritin 1178.0 H Total Bilirubin 1.50 H AST ALT Lactate Dehydrogenase 588 H C-Reactive Protein 40.10 H Albumin 2.2 L Triglycerides Arterial Blood Glucose Arterial Blood Ionized Calcium Urine Creatinine Coronavirus (PCR) 01/26/21 01/26/21 01/26/21 11:34 18:17 23:20 WBC RBC Hgb Hct MCV MCH MCHC RDW Lymph % (Auto) Lymph # (Auto) Seg Neutrophils % Seg Neuts % (Manual) Lymphocytes % (Manual) Seg Neutrophils # Man Lymphocytes # (Manual) D-Dimer ABG pH POC ABG pCO2 POC ABG pO2 ABG pO2 ABG HCO3 ABG O2 Saturation ABG Base Excess ABG Hemoglobin ABG Oxyhemoglobin ABG Sodium ABG Potassium ABG Chloride ABG Glucose Oxyhemoglobin Carboxyhemoglobin Sodium Potassium Chloride Carbon Dioxide BUN Creatinine Glucose POC Glucose 129 H 205 H 155 H Lactic Acid Calcium Magnesium Ferritin Total Bilirubin AST ALT Lactate Dehydrogenase C-Reactive Protein Albumin Triglycerides Arterial Blood Glucose Arterial Blood Ionized Calcium Urine Creatinine Coronavirus (PCR) 01/27/21 01/27/21 01/27/21 02:45 05:29 05:29 WBC RBC 3.58 L Hgb 11.7 L Hct 34.9 L MCV 97 H MCH 33 H MCHC RDW Lymph % (Auto) Lymph # (Auto) Seg Neutrophils % Seg Neuts % (Manual) 88.0 H Lymphocytes % (Manual) 7.0 L Seg Neutrophils # Man Lymphocytes # (Manual) 0.5 L D-Dimer ABG pH 7.319 L POC ABG pCO2 50.7 H POC ABG pO2 63.0 L ABG pO2 ABG HCO3 ABG O2 Saturation ABG Base Excess ABG Hemoglobin ABG Oxyhemoglobin ABG Sodium 145.2 H ABG Potassium 5.1 H ABG Chloride 114.0 H ABG Glucose 178 H Oxyhemoglobin Carboxyhemoglobin Sodium Potassium Chloride Carbon Dioxide BUN Creatinine Glucose POC Glucose Lactic Acid Calcium Magnesium 4.00 H Ferritin Total Bilirubin AST ALT Lactate Dehydrogenase C-Reactive Protein Albumin Triglycerides Arterial Blood Glucose 178 H Arterial Blood Ionized Calcium Urine Creatinine Coronavirus (PCR) 01/27/21 01/27/21 01/27/21 05:29 05:29 05:31 WBC RBC Hgb Hct MCV MCH MCHC RDW Lymph % (Auto) Lymph # (Auto) Seg Neutrophils % Seg Neuts % (Manual) Lymphocytes % (Manual) Seg Neutrophils # Man Lymphocytes # (Manual) D-Dimer ABG pH POC ABG pCO2 POC ABG pO2 ABG pO2 ABG HCO3 ABG O2 Saturation ABG Base Excess ABG Hemoglobin ABG Oxyhemoglobin ABG Sodium ABG Potassium ABG Chloride ABG Glucose Oxyhemoglobin Carboxyhemoglobin Sodium Potassium 5.2 H Chloride 109.6 H Carbon Dioxide BUN 67 H Creatinine 2.8 H Glucose 195 H POC Glucose 176 H Lactic Acid Calcium 7.9 L Magnesium Ferritin Total Bilirubin AST ALT Lactate Dehydrogenase C-Reactive Protein Albumin Triglycerides 160 H Arterial Blood Glucose Arterial Blood Ionized Calcium Urine Creatinine Coronavirus (PCR) 01/27/21 01/27/21 01/27/21 11:27 18:08 23:30 WBC RBC Hgb Hct MCV MCH MCHC RDW Lymph % (Auto) Lymph # (Auto) Seg Neutrophils % Seg Neuts % (Manual) Lymphocytes % (Manual) Seg Neutrophils # Man Lymphocytes # (Manual) D-Dimer ABG pH POC ABG pCO2 POC ABG pO2 ABG pO2 ABG HCO3 ABG O2 Saturation ABG Base Excess ABG Hemoglobin ABG Oxyhemoglobin ABG Sodium ABG Potassium ABG Chloride ABG Glucose Oxyhemoglobin Carboxyhemoglobin Sodium Potassium Chloride Carbon Dioxide BUN Creatinine Glucose POC Glucose 189 H 212 H 175 H Lactic Acid Calcium Magnesium Ferritin Total Bilirubin AST ALT Lactate Dehydrogenase C-Reactive Protein Albumin Triglycerides Arterial Blood Glucose Arterial Blood Ionized Calcium Urine Creatinine Coronavirus (PCR) 01/28/21 01/28/21 01/28/21 03:58 04:00 04:00 WBC RBC Hgb Hct MCV MCH MCHC RDW Lymph % (Auto) Lymph # (Auto) Seg Neutrophils % Seg Neuts % (Manual) Lymphocytes % (Manual) Seg Neutrophils # Man Lymphocytes # (Manual) D-Dimer > 12061 H ABG pH POC ABG pCO2 POC ABG pO2 52.9 L ABG pO2 ABG HCO3 ABG O2 Saturation ABG Base Excess ABG Hemoglobin ABG Oxyhemoglobin 84.1 L ABG Sodium 148.9 H ABG Potassium ABG Chloride 117.0 H ABG Glucose 194 H Oxyhemoglobin Carboxyhemoglobin Sodium Potassium Chloride Carbon Dioxide BUN Creatinine Glucose POC Glucose Lactic Acid Calcium Magnesium Ferritin Total Bilirubin AST ALT Lactate Dehydrogenase 679 H C-Reactive Protein 17.10 H Albumin Triglycerides Arterial Blood Glucose 194 H Arterial Blood Ionized Calcium Urine Creatinine Coronavirus (PCR) 01/28/21 01/28/21 01/28/21 04:00 05:00 06:00 WBC RBC 3.59 L Hgb 11.6 L Hct 34.8 L MCV 97 H MCH MCHC RDW Lymph % (Auto) Lymph # (Auto) Seg Neutrophils % Seg Neuts % (Manual) 96.0 H Lymphocytes % (Manual) 3.0 L Seg Neutrophils # Man Lymphocytes # (Manual) 0.2 L D-Dimer ABG pH POC ABG pCO2 POC ABG pO2 ABG pO2 ABG HCO3 ABG O2 Saturation ABG Base Excess ABG Hemoglobin ABG Oxyhemoglobin ABG Sodium ABG Potassium ABG Chloride ABG Glucose Oxyhemoglobin Carboxyhemoglobin Sodium Potassium Chloride Carbon Dioxide BUN Creatinine Glucose POC Glucose 159 H Lactic Acid Calcium Magnesium Ferritin 798.0 H Total Bilirubin AST ALT Lactate Dehydrogenase C-Reactive Protein Albumin Triglycerides Arterial Blood Glucose Arterial Blood Ionized Calcium Urine Creatinine Coronavirus (PCR) 01/28/21 01/28/21 01/28/21 06:00 06:00 08:12 WBC RBC Hgb Hct MCV MCH MCHC RDW Lymph % (Auto) Lymph # (Auto) Seg Neutrophils % Seg Neuts % (Manual) Lymphocytes % (Manual) Seg Neutrophils # Man Lymphocytes # (Manual) D-Dimer ABG pH POC ABG pCO2 POC ABG pO2 ABG pO2 ABG HCO3 ABG O2 Saturation ABG Base Excess ABG Hemoglobin ABG Oxyhemoglobin ABG Sodium ABG Potassium ABG Chloride ABG Glucose Oxyhemoglobin Carboxyhemoglobin Sodium Potassium Chloride 111.9 H Carbon Dioxide BUN 59 H Creatinine 2.2 H Glucose 189 H POC Glucose 181 H Lactic Acid Calcium 8.1 L Magnesium 3.20 H Ferritin Total Bilirubin AST ALT Lactate Dehydrogenase C-Reactive Protein Albumin Triglycerides Arterial Blood Glucose Arterial Blood Ionized Calcium Urine Creatinine Coronavirus (PCR) 01/28/21 01/28/21 01/28/21 12:03 16:43 23:51 WBC RBC Hgb Hct MCV MCH MCHC RDW Lymph % (Auto) Lymph # (Auto) Seg Neutrophils % Seg Neuts % (Manual) Lymphocytes % (Manual) Seg Neutrophils # Man Lymphocytes # (Manual) D-Dimer ABG pH POC ABG pCO2 POC ABG pO2 ABG pO2 ABG HCO3 ABG O2 Saturation ABG Base Excess ABG Hemoglobin ABG Oxyhemoglobin ABG Sodium ABG Potassium ABG Chloride ABG Glucose Oxyhemoglobin Carboxyhemoglobin Sodium Potassium Chloride Carbon Dioxide BUN Creatinine Glucose POC Glucose 164 H 198 H 196 H Lactic Acid Calcium Magnesium Ferritin Total Bilirubin AST ALT Lactate Dehydrogenase C-Reactive Protein Albumin Triglycerides Arterial Blood Glucose Arterial Blood Ionized Calcium Urine Creatinine Coronavirus (PCR) 01/29/21 01/29/21 01/29/21 05:00 05:23 06:00 WBC RBC Hgb Hct MCV MCH MCHC RDW Lymph % (Auto) Lymph # (Auto) Seg Neutrophils % Seg Neuts % (Manual) Lymphocytes % (Manual) Seg Neutrophils # Man Lymphocytes # (Manual) D-Dimer ABG pH 7.119 L POC ABG pCO2 87.1 H POC ABG pO2 ABG pO2 ABG HCO3 ABG O2 Saturation ABG Base Excess ABG Hemoglobin ABG Oxyhemoglobin ABG Sodium 152.5 H ABG Potassium 5.7 H ABG Chloride 120.0 H ABG Glucose 217 H Oxyhemoglobin Carboxyhemoglobin Sodium 151 H Potassium 5.9 H D Chloride 117.8 H Carbon Dioxide BUN 54 H Creatinine 2.2 H Glucose 208 H POC Glucose 180 H Lactic Acid Calcium 7.9 L Magnesium Ferritin Total Bilirubin AST ALT Lactate Dehydrogenase C-Reactive Protein Albumin Triglycerides Arterial Blood Glucose 217 H Arterial Blood Ionized Calcium Urine Creatinine Coronavirus (PCR) 01/29/21 01/29/21 01/29/21 12:29 17:28 18:05 WBC RBC Hgb Hct MCV MCH MCHC RDW Lymph % (Auto) Lymph # (Auto) Seg Neutrophils % Seg Neuts % (Manual) Lymphocytes % (Manual) Seg Neutrophils # Man Lymphocytes # (Manual) D-Dimer ABG pH POC ABG pCO2 POC ABG pO2 ABG pO2 ABG HCO3 ABG O2 Saturation ABG Base Excess ABG Hemoglobin ABG Oxyhemoglobin ABG Sodium ABG Potassium ABG Chloride ABG Glucose Oxyhemoglobin Carboxyhemoglobin Sodium 151 H Potassium 5.5 H Chloride 118.2 H Carbon Dioxide BUN 52 H Creatinine 2.2 H Glucose 224 H POC Glucose 181 H 203 H Lactic Acid Calcium 8.0 L Magnesium Ferritin Total Bilirubin AST ALT Lactate Dehydrogenase C-Reactive Protein Albumin Triglycerides Arterial Blood Glucose Arterial Blood Ionized Calcium Urine Creatinine Coronavirus (PCR) 01/29/21 01/29/21 01/29/21 18:13 23:34 Unknown WBC RBC Hgb Hct MCV 101 H MCH MCHC RDW 15.7 H Lymph % (Auto) Lymph # (Auto) Seg Neutrophils % Seg Neuts % (Manual) 95.0 H Lymphocytes % (Manual) 3.0 L Seg Neutrophils # Man 8.0 H Lymphocytes # (Manual) 0.3 L D-Dimer ABG pH 7.223 L POC ABG pCO2 64.8 H POC ABG pO2 63.6 L ABG pO2 ABG HCO3 ABG O2 Saturation ABG Base Excess ABG Hemoglobin ABG Oxyhemoglobin 89.4 L ABG Sodium 152.9 H ABG Potassium 5.3 H ABG Chloride 121.0 H ABG Glucose 227 H Oxyhemoglobin Carboxyhemoglobin Sodium Potassium Chloride Carbon Dioxide BUN Creatinine Glucose POC Glucose 198 H Lactic Acid Calcium Magnesium Ferritin Total Bilirubin AST ALT Lactate Dehydrogenase C-Reactive Protein Albumin Triglycerides Arterial Blood Glucose 227 H Arterial Blood Ionized Calcium Urine Creatinine Coronavirus (PCR) 01/30/21 01/30/21 01/30/21 04:00 04:00 04:00 WBC RBC Hgb Hct MCV MCH MCHC RDW Lymph % (Auto) Lymph # (Auto) Seg Neutrophils % Seg Neuts % (Manual) Lymphocytes % (Manual) Seg Neutrophils # Man Lymphocytes # (Manual) D-Dimer > 56836 H ABG pH POC ABG pCO2 POC ABG pO2 ABG pO2 ABG HCO3 ABG O2 Saturation ABG Base Excess ABG Hemoglobin ABG Oxyhemoglobin ABG Sodium ABG Potassium ABG Chloride ABG Glucose Oxyhemoglobin Carboxyhemoglobin Sodium Potassium Chloride Carbon Dioxide BUN Creatinine Glucose 234 H POC Glucose Lactic Acid Calcium Magnesium Ferritin 763.9 H Total Bilirubin AST ALT Lactate Dehydrogenase 424 H C-Reactive Protein 23.90 H Albumin Triglycerides Arterial Blood Glucose Arterial Blood Ionized Calcium Urine Creatinine Coronavirus (PCR) 01/30/21 01/30/21 01/30/21 04:24 05:00 05:16 WBC RBC 3.57 L Hgb 11.3 L Hct 35.4 L MCV 99 H MCH MCHC RDW 15.6 H Lymph % (Auto) Lymph # (Auto) Seg Neutrophils % Seg Neuts % (Manual) 97.0 H Lymphocytes % (Manual) 1.0 L Seg Neutrophils # Man 8.6 H Lymphocytes # (Manual) 0.1 L D-Dimer ABG pH 7.235 L POC ABG pCO2 69.7 H POC ABG pO2 61.0 L ABG pO2 ABG HCO3 ABG O2 Saturation ABG Base Excess ABG Hemoglobin ABG Oxyhemoglobin 89 L ABG Sodium 154.2 H ABG Potassium 5.4 H ABG Chloride 121.0 H ABG Glucose 247 H Oxyhemoglobin Carboxyhemoglobin Sodium Potassium Chloride Carbon Dioxide BUN Creatinine Glucose POC Glucose 238 H Lactic Acid Calcium Magnesium Ferritin Total Bilirubin AST ALT Lactate Dehydrogenase C-Reactive Protein Albumin Triglycerides Arterial Blood Glucose 247 H Arterial Blood Ionized Calcium Urine Creatinine Coronavirus (PCR) 01/30/21 01/30/21 01/30/21 06:00 11:28 12:00 WBC RBC Hgb Hct MCV MCH MCHC RDW Lymph % (Auto) Lymph # (Auto) Seg Neutrophils % Seg Neuts % (Manual) Lymphocytes % (Manual) Seg Neutrophils # Man Lymphocytes # (Manual) D-Dimer ABG pH POC ABG pCO2 POC ABG pO2 ABG pO2 ABG HCO3 ABG O2 Saturation ABG Base Excess ABG Hemoglobin ABG Oxyhemoglobin ABG Sodium ABG Potassium ABG Chloride ABG Glucose Oxyhemoglobin Carboxyhemoglobin Sodium 152 H Potassium 5.3 H Chloride 120.5 H Carbon Dioxide BUN 50 H Creatinine 2.3 H Glucose 239 H POC Glucose 153 H Lactic Acid Calcium 8.2 L Magnesium 2.60 H Ferritin Total Bilirubin AST ALT Lactate Dehydrogenase C-Reactive Protein Albumin Triglycerides 293 H Arterial Blood Glucose Arterial Blood Ionized Calcium Urine Creatinine 53.0 H Coronavirus (PCR) 01/30/21 01/30/21 01/31/21 18:49 23:06 04:00 WBC RBC Hgb Hct MCV MCH MCHC RDW Lymph % (Auto) Lymph # (Auto) Seg Neutrophils % Seg Neuts % (Manual) Lymphocytes % (Manual) Seg Neutrophils # Man Lymphocytes # (Manual) D-Dimer ABG pH POC ABG pCO2 POC ABG pO2 ABG pO2 ABG HCO3 ABG O2 Saturation ABG Base Excess ABG Hemoglobin ABG Oxyhemoglobin ABG Sodium ABG Potassium ABG Chloride ABG Glucose Oxyhemoglobin Carboxyhemoglobin Sodium 156 H Potassium 5.9 H Chloride 122.6 H Carbon Dioxide BUN 61 H Creatinine 3.2 H Glucose 205 H POC Glucose 220 H 192 H Lactic Acid Calcium 8.0 L Magnesium Ferritin Total Bilirubin AST ALT Lactate Dehydrogenase C-Reactive Protein Albumin Triglycerides Arterial Blood Glucose Arterial Blood Ionized Calcium Urine Creatinine Coronavirus (PCR) 01/31/21 01/31/21 01/31/21 04:40 05:17 11:33 WBC RBC Hgb Hct MCV MCH MCHC RDW Lymph % (Auto) Lymph # (Auto) Seg Neutrophils % Seg Neuts % (Manual) Lymphocytes % (Manual) Seg Neutrophils # Man Lymphocytes # (Manual) D-Dimer ABG pH 7.161 L* POC ABG pCO2 POC ABG pO2 ABG pO2 142.2 H ABG HCO3 28.3 H ABG O2 Saturation ABG Base Excess -3.2 L ABG Hemoglobin ABG Oxyhemoglobin ABG Sodium ABG Potassium ABG Chloride ABG Glucose Oxyhemoglobin Carboxyhemoglobin Sodium Potassium Chloride Carbon Dioxide BUN Creatinine Glucose POC Glucose 200 H 167 H Lactic Acid Calcium Magnesium Ferritin Total Bilirubin AST ALT Lactate Dehydrogenase C-Reactive Protein Albumin Triglycerides Arterial Blood Glucose Arterial Blood Ionized Calcium Urine Creatinine Coronavirus (PCR) 01/31/21 01/31/21 01/31/21 14:00 17:10 23:24 WBC RBC Hgb Hct MCV MCH MCHC RDW Lymph % (Auto) Lymph # (Auto) Seg Neutrophils % Seg Neuts % (Manual) Lymphocytes % (Manual) Seg Neutrophils # Man Lymphocytes # (Manual) D-Dimer ABG pH 7.205 L POC ABG pCO2 POC ABG pO2 ABG pO2 90.9 H ABG HCO3 26.5 H ABG O2 Saturation ABG Base Excess -2.7 L ABG Hemoglobin 12.3 L ABG Oxyhemoglobin ABG Sodium ABG Potassium ABG Chloride ABG Glucose Oxyhemoglobin 93.9 L Carboxyhemoglobin Sodium Potassium Chloride Carbon Dioxide BUN Creatinine Glucose POC Glucose 190 H 203 H Lactic Acid Calcium Magnesium Ferritin Total Bilirubin AST ALT Lactate Dehydrogenase C-Reactive Protein Albumin Triglycerides Arterial Blood Glucose Arterial Blood Ionized Calcium Urine Creatinine Coronavirus (PCR) 02/01/21 02/01/21 02/01/21 05:15 06:22 10:20 WBC RBC Hgb Hct MCV MCH MCHC RDW Lymph % (Auto) Lymph # (Auto) Seg Neutrophils % Seg Neuts % (Manual) Lymphocytes % (Manual) Seg Neutrophils # Man Lymphocytes # (Manual) D-Dimer ABG pH 6.920 L* 7.116 L* POC ABG pCO2 POC ABG pO2 ABG pO2 102.9 H 113.1 H ABG HCO3 28.2 H ABG O2 Saturation 92.9 L ABG Base Excess -6.9 L -5.8 L ABG Hemoglobin 11.6 L 9.5 L ABG Oxyhemoglobin ABG Sodium ABG Potassium ABG Chloride ABG Glucose Oxyhemoglobin 90.5 L 94.6 L Carboxyhemoglobin Sodium Potassium Chloride Carbon Dioxide BUN Creatinine Glucose POC Glucose 221 H Lactic Acid Calcium Magnesium Ferritin Total Bilirubin AST ALT Lactate Dehydrogenase C-Reactive Protein Albumin Triglycerides Arterial Blood Glucose Arterial Blood Ionized Calcium Urine Creatinine Coronavirus (PCR) 02/01/21 02/01/21 02/01/21 11:12 12:35 16:00 WBC RBC Hgb Hct MCV MCH MCHC RDW Lymph % (Auto) Lymph # (Auto) Seg Neutrophils % Seg Neuts % (Manual) Lymphocytes % (Manual) Seg Neutrophils # Man Lymphocytes # (Manual) D-Dimer ABG pH 7.155 L* POC ABG pCO2 POC ABG pO2 ABG pO2 94.6 H ABG HCO3 ABG O2 Saturation ABG Base Excess -6.5 L ABG Hemoglobin 13.1 L ABG Oxyhemoglobin ABG Sodium ABG Potassium ABG Chloride ABG Glucose Oxyhemoglobin 93.7 L Carboxyhemoglobin Sodium 155 H Potassium 5.1 H Chloride 120.5 H Carbon Dioxide BUN 90 H Creatinine 6.1 H D Glucose 238 H POC Glucose 207 H Lactic Acid Calcium 7.4 L Magnesium Ferritin Total Bilirubin AST ALT Lactate Dehydrogenase C-Reactive Protein Albumin Triglycerides Arterial Blood Glucose Arterial Blood Ionized Calcium Urine Creatinine Coronavirus (PCR) 02/01/21 02/01/21 02/02/21 17:10 23:47 04:04 WBC RBC 3.02 L Hgb 9.8 L Hct 30.7 L MCV 102 H MCH MCHC RDW 15.6 H Lymph % (Auto) 4.2 L Lymph # (Auto) 0.3 L Seg Neutrophils % Seg Neuts % (Manual) Lymphocytes % (Manual) Seg Neutrophils # Man Lymphocytes # (Manual) D-Dimer ABG pH POC ABG pCO2 POC ABG pO2 ABG pO2 ABG HCO3 ABG O2 Saturation ABG Base Excess ABG Hemoglobin ABG Oxyhemoglobin ABG Sodium ABG Potassium ABG Chloride ABG Glucose Oxyhemoglobin Carboxyhemoglobin Sodium Potassium Chloride Carbon Dioxide BUN Creatinine Glucose POC Glucose 238 H 235 H Lactic Acid Calcium Magnesium Ferritin Total Bilirubin AST ALT Lactate Dehydrogenase C-Reactive Protein Albumin Triglycerides Arterial Blood Glucose Arterial Blood Ionized Calcium Urine Creatinine Coronavirus (PCR) 02/02/21 02/02/21 05:18 05:35 WBC RBC Hgb Hct MCV MCH MCHC RDW Lymph % (Auto) Lymph # (Auto) Seg Neutrophils % Seg Neuts % (Manual) Lymphocytes % (Manual) Seg Neutrophils # Man Lymphocytes # (Manual) D-Dimer ABG pH 7.195 L* POC ABG pCO2 POC ABG pO2 ABG pO2 72.5 L ABG HCO3 ABG O2 Saturation 91.2 L ABG Base Excess -5.3 L ABG Hemoglobin 6.0 L ABG Oxyhemoglobin ABG Sodium ABG Potassium ABG Chloride ABG Glucose Oxyhemoglobin 89.1 L Carboxyhemoglobin Sodium Potassium Chloride Carbon Dioxide BUN Creatinine Glucose POC Glucose 239 H Lactic Acid Calcium Magnesium Ferritin Total Bilirubin AST ALT Lactate Dehydrogenase C-Reactive Protein Albumin Triglycerides Arterial Blood Glucose Arterial Blood Ionized Calcium Urine Creatinine Coronavirus (PCR)
[2021-02-02] MEDS ORDERED: SODIUM BICARB 8.4% 50 MEQ/50 ML SYRINGE IV SCH (10:30)
[2021-02-02] MEDS ORDERED: SODIUM BICARB 8.4% 50 MEQ/50 ML SYRINGE IV ONE ×2 (10:30→12:00)
--- NOTE | 2021-02-02 11:34 | Progress Note ---
Assessment and Plan Cultures: Blood culture no growth today SARS CoV2 PCR positive 01/22/2021 respiratory culture: Usual respiratory dillon Blood Culture 01/30/2021 no growth today Urine culture 01/30/2021 no growth today Sputum culture 01/30/2021 usual respiratory dillon Assessment: 60 year old male with history of morbid obesity admitted on 01/22/2021 secondary to 3-day history of worsening shortness of breath associated with fever, chills, loss of smell and taste: #Severe sepsis with septic shock: No fever for 48 hours, remains on pressors. likely due to bilateral pneumonia. Urinalysis negative. Procalcitonin elevated in the setting of DEISI. #Critical COVID-19 pneumonia: Patient remains intubated. Chest x-ray with bilateral airspace disease. Inflammatory markers worsening, D-dimer>10K. CRP 40-->23. Completed remdesivir. #Acute respiratory failure: Remains on the ventilator #Transaminitis: Likely secondary to COVID-19. #DEISI: Worsening, creatinine 3.2--> 6.1 Recommendations: -Continue cefepime, vancomycin, renally adjusted D4 of 7 -Check MRSA PCR -To start hemodialysis today -Monitor fever -Continue steroids per pulmonary -Monitor inflammatory markers -Anticoagulation per protocol, very high d-dimer Very guarded prognosis Will follow Jami Laird MD Infectious Diseases [employer] [facility], [place], [facility] M [phone] O [phone] Subjective Date of service: 02/02/21 Principal diagnosis: Critical COVID19 Interval history: Patient remains intubated, FiO2 70%, PEEP of 12, sats>90%, no fever. Remains on Levophed 2 mcg. Sedated on propofol and fentanyl. Objective - Exam Narrative Exam: Physical exam deferred to minimize COVID-19 transmission during pandemic. - Constitutional Vitals: Vital Signs Temp Pulse Resp BP Pulse Ox 99.7 F H 91 H 30 H 118/54 91 02/02/21 07:33 02/02/21 09:30 02/02/21 09:30 02/02/21 09:30 02/02/21 09:30 Temperature -Last 24 Hours Temperature 99.7 F Temperature 98.6 F Temperature 98.6 F Temperature 98.4 F Temperature 98.6 F Temperature 99 F - Labs CBC & Chem 7: 02/02/21 04:04 02/02/21 11:28 Labs: Abnormal lab results 02/01/21 02/01/21 02/01/21 Range/Units 06:22 11:12 12:35 RBC (3.65-5.03) M/mm3 Hgb (11.8-15.2) gm/dl Hct (35.5-45.6) % MCV (84-94) fl RDW (13.2-15.2) % Lymph % (Auto) (13.4-35.0) % Lymph # (Auto) (1.2-5.4) K/mm3 ABG pH (7.350-7.450) pH Units ABG pO2 (80.0-90.0) mm Hg ABG O2 Saturation (95.0-99.0) % ABG Base Excess (-2.0-3.0) mmol/L ABG Hemoglobin (14.0-18.0) gm/dl Oxyhemoglobin (95.0-99.0) % Sodium 155 H (137-145) mmol/L Potassium 5.1 H (3.6-5.0) mmol/L Chloride 120.5 H (98-107) mmol/L BUN 90 H (9-20) mg/dL Creatinine 6.1 H D (0.8-1.3) mg/dL Glucose 238 H (75-100) mg/dL POC Glucose 221 H 207 H (70-105) mg/dL Calcium 7.4 L (8.4-10.2) mg/dL 02/01/21 02/01/21 02/01/21 Range/Units 16:00 17:10 23:47 RBC (3.65-5.03) M/mm3 Hgb (11.8-15.2) gm/dl Hct (35.5-45.6) % MCV (84-94) fl RDW (13.2-15.2) % Lymph % (Auto) (13.4-35.0) % Lymph # (Auto) (1.2-5.4) K/mm3 ABG pH 7.155 L* (7.350-7.450) pH Units ABG pO2 94.6 H (80.0-90.0) mm Hg ABG O2 Saturation (95.0-99.0) % ABG Base Excess -6.5 L (-2.0-3.0) mmol/L ABG Hemoglobin 13.1 L (14.0-18.0) gm/dl Oxyhemoglobin 93.7 L (95.0-99.0) % Sodium (137-145) mmol/L Potassium (3.6-5.0) mmol/L Chloride (98-107) mmol/L BUN (9-20) mg/dL Creatinine (0.8-1.3) mg/dL Glucose (75-100) mg/dL POC Glucose 238 H 235 H (70-105) mg/dL Calcium (8.4-10.2) mg/dL 02/02/21 02/02/21 02/02/21 Range/Units 04:04 05:18 05:35 RBC 3.02 L (3.65-5.03) M/mm3 Hgb 9.8 L (11.8-15.2) gm/dl Hct 30.7 L (35.5-45.6) % MCV 102 H (84-94) fl RDW 15.6 H (13.2-15.2) % Lymph % (Auto) 4.2 L (13.4-35.0) % Lymph # (Auto) 0.3 L (1.2-5.4) K/mm3 ABG pH 7.195 L* (7.350-7.450) pH Units ABG pO2 72.5 L (80.0-90.0) mm Hg ABG O2 Saturation 91.2 L (95.0-99.0) % ABG Base Excess -5.3 L (-2.0-3.0) mmol/L ABG Hemoglobin 6.0 L (14.0-18.0) gm/dl Oxyhemoglobin 89.1 L (95.0-99.0) % Sodium (137-145) mmol/L Potassium (3.6-5.0) mmol/L Chloride (98-107) mmol/L BUN (9-20) mg/dL Creatinine (0.8-1.3) mg/dL Glucose (75-100) mg/dL POC Glucose 239 H (70-105) mg/dL Calcium (8.4-10.2) mg/dL
[2021-02-02 11:48] LABS: Blood Urea Nitrogen 92 mg/dL (9-20); Hemolysis Index 64
[2021-02-02 12:16] LABS: Calcium TNR mg/dL (8.4-10.2)
[2021-02-02 12:20] LABS: BUN/Creatinine Ratio TNR
--- NOTE | 2021-02-02 15:56 | Progress Note ---
Assessment and Plan Assessment and plan: Sepsis -Patient is febrile, COVID-19 pneumonia, acute kidney injury, leukocytosis -Antibiotic therapy -ID consulted, appreciate recommendations -01/22 tracheal aspirate with normal respiratory dillon -01/22 blood cultures x2 with no growth to date -01/30 blood culture x2 with no growth after 48 hours -01/30 tracheal aspirate with few gram-positive cocci COVID-19 PNA -COVID-19 PCR positive -Pneumonia on CXR -Antibiotic therapy -Infectious disease consulted, appreciate recommendations -Contact/droplet precautions -Steroid therapy, s/p remdesivir Acute hypoxic respiratory failure -CCM consulted, appreciate recommendation -Mechanical ventilation, wean as tolerated -VAP bundle Acute kidney injury -Nephrology consulted, appreciate recommendation -Trend BMP -S/p MIVF Metabolic acidosis -Bicarb drip -S/p 2 amp of bicarb IVP Elevated D-dimer -Trend D-dimer -Bilateral lower extremity Doppler ultrasound negative for DVT/SVT -Therapeutic Lovenox Hyperchloremia -Nephrology consulted -Trend BMP Diabetes mellitus -SSI -Long-acting insulin -Accu-Cheks every 6 while on tube feedings Hypertension -Hold home antihypertensive regimen for now -Blood pressure monitor per protocol DVT/GI prophylaxis: SCDs to bilateral lower extremities while in bed, heparin subcu, PPI Dispo: ICU The high probability of a clinically significant, sudden or life threatening deterioration of the [multi] system(s) required my full and direct attention, intervention and personal management. The aggregate critical care time was [32] minutes. This time is in addition to time spent performing reported procedures but includes the following: [x] Data Review and interpretation [x] Patient assessment and monitoring of vital signs [x] Documentation [x] Medication orders and management History Interval history: This is a 60-year-old male with diabetes mellitus, hypertension, hyperlipidemia, chronic renal insufficiency presents to the emergency department on 01/23 with shortness of breath, fevers chills, loss of smell and taste and body aches for the past 3 days via EMS. Per EMS patient's oxygen saturation on room air was 50% and after being placed on nonrebreather it increased 75%. Upon arrival to the emergency department patient was being bagged by EMS. In the emergency room patient was intubated due to severe hypoxia, increased work of breathing and lethargy. Patient was sedated on propofol and fentanyl. Patient presented with fever, tachycardia, tachypnea and acute hypoxic respiratory failure with PNA on CXR meeting Sepsis criteria. Lab work in the emergency department revealed hyponatremia, hypokalemia, hypochloremia, elevated CR/BUN and CXR showed bi lateral pneumonia. Patient was admitted to the hospital service as a COVID-19 PUI with consults to infectious disease, nephrology and critical care medicine. Sepsis COVID-19 pneumonia Bilateral pneumonia Acute hypoxic respiratory failure Acute kidney injury Hypernatremia Hyperchloremia Hyperkalemia Diabetes mellitus Hypertension Hyperlipidemia Chronic renal insufficiency Elevated D-dimer 01/24/2021: Patient is intubated and sedated, patient is positive for COVID-19 infection. ID was consulted and put on dexamethasone and remdesivir. Patient has DEISI and nephrology is following. Creatinine stable, patient is urinating. Discussed with nephrology and he is okay with remdesivir. Pulmonary critical care is following for his vent setting. PEEP of 8 and FiO2 of 85%. Patient was alert and off sedatives. 01/25/2021; patient is intubated and on mechanical ventilation. Continue with treatment of Covid. Nephrology and ID is following. Pulmonary is following for vent management 01/26: Remains on mechanical ventilation and [facility] increased his PEEP. [facility] has ordered Precedex for sedation. Possibly need to prone this p.m. No acute events reported overnight. This morning his D-dimer is greater than 10,000 and we have started him on Lovenox 120 mg daily. Nutrition has been consulted for initiation of tube feedings. Patient remains sedated on propofol 40 and fentanyl for the time my examination this morning. 01/27: Continue Lovenox, remdesivir and empiric antibiotics. Patient had a T-max of 101 overnight. The time of examination patient is on CMV 500/18/14/0.61. Kidney function slightly worsened. Sedated on fentanyl ground-level fall and Precedex. Nephrology has increased IV fluids to 100 ml/hr. Continue to trend BMP and CBC. Sedation vacation attempt by RN this AM. 01/28: Patient completed antibiotics today [facility] will paralyze patient and increase sedation. PICC line ordered for possible vasopressor therapy need. Patient's D-dimer remains greater than 10,000 and he still has hyperchloremia. Patient's kidney function has improved today. May need to prone the patient if no improvement in oxygenation is noted in the next 24 hours. The time of my examination patient is sedated with propofol, fentanyl and Precedex and is on assist control 500/18/16/0.80 hypoxic on ABG on 60% FiO2. 01/29: Patient was started on Nimbex yesterday and his ABG this morning showed respiratory acidosis with hypercapnia and his respiratory rate was increased. We will obtain a repeat ABG this afternoon. This morning patient is hypernatremic, hyperkalemic and hyperchloremic. His potassium has been corrected with the management and will obtain repeat BMP tomorrow. His kidney f unctions have remained stable and we will await nephrology's input. No acute events reported overnight. This morning the time my examination patient sedated with propofol, Precedex and fentanyl and paralyzed with Nimbex. He is on assist control 500/24/16 0.80. 01/30: This morning patient is hypokalemic again and was given Kayexalate. Patient has hypernatremia and hyper chloremia and his renal function is slightly worse after receiving Lasix yesterday. His D-dimer remains greater than 10,000 and he is still on a paralytic. Patient is sedated on Precedex, fentanyl, propofol. Mechanical ventilation settings seven-point 269/61/28. [facility] has decided to continue paralytics for 48 more hours and will attempt proning the patient. Increased free water flushes 300 cc every 4 hours. Patient states has restarted his antibiotics cefepime and vancomycin and recultured. 01/31/21 Hyperkalemia Treated 02/01/21 Hyperkalemia Treated 02/02: Patient's kidney function continues to worsen and a stat BMP this morning shows BUN/creatinine 20/6.1 and he remains hypocalcemic and hypernatremic, hypokalemic and hypochloremic. Patient received 2 g of calcium gluconate and Kayexalate and his repeat potassium was 4.3 this afternoon. He remains antibiotic therapy and steroids. Nephrology has placed the patient on bicarb drip given metabolic acidosis and has decided to hold off hemodialysis till tomorrow.The time my examination patient is sedated on fentanyl, Precedex and on assist control 500/20/12/0.70. s/p paralytic. Hospitalist Physical - Constitutional Vitals: Temp Pulse Resp BP Pulse Ox 99.2 F 79 25 H 119/60 92 02/02/21 12:00 02/02/21 15:47 02/02/21 13:16 02/02/21 15:47 02/02/21 15:47 General appearance: Present: no acute distress, well-nourished, other (Sedated and on mechanical ventilation) - EENT Eyes: Present: PERRL (Sluggish) ENT: poor dentition - Neck Neck: Present: normal ROM - Respiratory Respiratory effort: normal Respiratory: bilateral: diminished - Cardiovascular Rhythm: regular Heart Sounds: Present: S1 & S2. Absent: systolic murmur, diastolic murmur - Extremities Extremities: no ischemia, pulses intact, pulses symmetrical, normal temperature, normal color Extremity abnormal: edema Peripheral Pulses: within normal limits - Abdominal General gastrointestinal: soft, non-tender, non-distended, normal bowel sounds - Integumentary Integumentary: Present: warm, dry - Psychiatric Psychiatric: other (Sedated) - Neurologic Neurologic: other (Sedated) HEART Score - HEART Score Risk factors: 1-2 risk factors Troponin: < normal limit - Critical Actions Critical Actions: 0-3 pts:0.9-1.7%risk of adverse cardiac event.Candidate for discharge Results - Labs CBC & Chem 7: 02/02/21 04:04 02/02/21 11:28 Labs: Laboratory Last Values WBC 7.2 K/mm3 (4.5-11.0) 02/02/21 04:04 RBC 3.02 M/mm3 (3.65-5.03) L 02/02/21 04:04 Hgb 9.8 gm/dl (11.8-15.2) L 02/02/21 04:04 Hct 30.7 % (35.5-45.6) L 02/02/21 04:04 MCV 102 fl (84-94) H 02/02/21 04:04 MCH 32 pg (28-32) 02/02/21 04:04 MCHC 32 % (32-34) 02/02/21 04:04 RDW 15.6 % (13.2-15.2) H 02/02/21 04:04 Plt Count 213 K/mm3 (140-440) 02/02/21 04:04 Lymph % (Auto) 4.2 % (13.4-35.0) L 02/02/21 04:04 Merrick % (Auto) 2.6 % (0.0-7.3) 02/02/21 04:04 Eos % (Auto) 0.3 % (0.0-4.3) 02/02/21 04:04 Baso % (Auto) 0.2 % (0.0-1.8) 02/02/21 04:04 Lymph # (Auto) 0.3 K/mm3 (1.2-5.4) L 02/02/21 04:04 Merrick # (Auto) 0.2 K/mm3 (0.0-0.8) 02/02/21 04:04 Eos # (Auto) 0.0 K/mm3 (0.0-0.4) 02/02/21 04:04 Baso # (Auto) 0.0 K/mm3 (0.0-0.1) 02/02/21 04:04 Add Manual Diff Complete 01/30/21 05:00 Total Counted 100 01/30/21 05:00 Seg Neutrophils % Supervisor [employer]otive 02/02/21 04:04 Seg Neuts % (Manual) 97.0 % (40.0-70.0) H 01/30/21 05:00 Band Neutrophils % 1.0 % 01/27/21 05:29 Lymphocytes % (Manual) 1.0 % (13.4-35.0) L 01/30/21 05:00 Reactive Lymphs % (Man) 1.0 % 01/27/21 05:29 Monocytes % (Manual) 2.0 % (0.0-7.3) 01/30/21 05:00 Eosinophils % (Manual) 2.0 % (0.0-4.3) 01/24/21 05:05 Nucleated RBC % Not Reportable 01/30/21 05:00 Seg Neutrophils # 6.7 K/mm3 (1.8-7.7) 02/02/21 04:04 Seg Neutrophils # Man 8.6 K/mm3 (1.8-7.7) H 01/30/21 05:00 Band Neutrophils # 0.0 K/mm3 01/30/21 05:00 Lymphocytes # (Manual) 0.1 K/mm3 (1.2-5.4) L 01/30/21 05:00 Abs React Lymphs (Man) 0.0 K/mm3 01/30/21 05:00 Monocytes # (Manual) 0.2 K/mm3 (0.0-0.8) 01/30/21 05:00 Eosinophils # (Manual) 0.0 K/mm3 (0.0-0.4) 01/30/21 05:00 Basophils # (Manual) 0.0 K/mm3 (0.0-0.1) 01/30/21 05:00 Metamyelocytes # 0.0 K/mm3 01/30/21 05:00 Myelocytes # 0.0 K/mm3 01/30/21 05:00 Promyelocytes # 0.0 K/mm3 01/30/21 05:00 Blast Cells # 0.0 K/mm3 01/30/21 05:00 WBC Morphology Not Reportable 01/30/21 05:00 Hypersegmented Neuts Not Reportable 01/30/21 05:00 Hyposegmented Neuts Not Reportable 01/30/21 05:00 Hypogranular Neuts Not Reportable 01/30/21 05:00 Smudge Cells Not Reportable 01/30/21 05:00 Toxic Granulation Not Reportable 01/30/21 05:00 Toxic Vacuolation Not Reportable 01/30/21 05:00 Dohle Bodies Not Reportable 01/30/21 05:00 Pelger-Huet Anomaly Not Reportable 01/30/21 05:00 Fátmia Rods Not Reportable 01/30/21 05:00 Platelet Estimate Consistent w auto 01/30/21 05:00 Clumped Platelets Not Reportable 01/30/21 05:00 Plt Clumps, EDTA Not Reportable 01/30/21 05:00 Large Platelets Not Reportable 01/30/21 05:00 Giant Platelets Not Reportable 01/30/21 05:00 Platelet Satelliting Not Reportable 01/30/21 05:00 Plt Morphology Comment Not Reportable 01/30/21 05:00 RBC Morphology Not Reportable 01/30/21 05:00 Dimorphic RBCs Not Reportable 01/30/21 05:00 Polychromasia Not Reportable 01/30/21 05:00 Hypochromasia Not Reportable 01/30/21 05:00 Poikilocytosis Not Reportable 01/30/21 05:00 Anisocytosis Not Reportable 01/30/21 05:00 Microcytosis Not Reportable 01/30/21 05:00 Macrocytosis Not Reportable 01/30/21 05:00 Spherocytes Not Reportable 01/30/21 05:00 Pappenheimer Bodies Not Reportable 01/30/21 05:00 Sickle Cells Not Reportable 01/30/21 05:00 Target Cells Not Reportable 01/30/21 05:00 Tear Drop Cells Not Reportable 01/30/21 05:00 Ovalocytes Not Reportable 01/30/21 05:00 Helmet Cells Not Reportable 01/30/21 05:00 Potter-Timblin Bodies Not Reportable 01/30/21 05:00 [place] Rings Not Reportable 01/30/21 05:00 Ludmila Cells Not Reportable 01/30/21 05:00 Bite Cells Not Reportable 01/30/21 05:00 Crenated Cell Not Reportable 01/30/21 05:00 Elliptocytes Not Reportable 01/30/21 05:00 Acanthocytes (Spur) Not Reportable 01/30/21 05:00 Rouleaux Not Reportable 01/30/21 05:00 Hemoglobin C Crystals Not Reportable 01/30/21 05:00 Schistocytes Not Reportable 01/30/21 05:00 Malaria parasites Not Reportable 01/30/21 05:00 Aquiles Bodies Not Reportable 01/30/21 05:00 Hem Pathologist Commnt No 01/30/21 05:00 D-Dimer > 83142 ng/mlDDU (0-234) H 01/30/21 04:00 ABG pH 7.195 pH Units (7.350-7.450) L* 02/02/21 05:35 POC ABG pCO2 69.7 mmHg (32.0-48.0) H 01/30/21 04:24 ABG pCO2 59.2 mm Hg 02/02/21 05:35 POC ABG pO2 61.0 mmHg (83-108) L 01/30/21 04:24 ABG pO2 72.5 mm Hg (80.0-90.0) L 02/02/21 05:35 POC ABG HCO3 28.9 01/30/21 04:24 ABG HCO3 22.3 mmol/L (20.0-26.0) 02/02/21 05:35 ABG O2 Saturation 91.2 % (95.0-99.0) L 02/02/21 05:35 ABG O2 Content 7.7 (0.0-44) 02/02/21 05:35 POC ABG Base Excess 0 01/30/21 04:24 ABG Base Excess -5.3 mmol/L (-2.0-3.0) L 02/02/21 05:35 ABG Hemoglobin 6.0 gm/dl (14.0-18.0) L 02/02/21 05:35 ABG Oxyhemoglobin 89 (94-98) L 01/30/21 04:24 ABG Carboxyhemoglobin 1.7 % (0.0-5.0) 02/02/21 05:35 ABG Methemoglobin 0.7 % (0.0-1.5) 02/02/21 05:35 ABG Sodium 154.2 mmol/L (136.0-145.0) H 01/30/21 04:24 ABG Potassium 5.4 mmol/L (3.40-4.50) H 01/30/21 04:24 ABG Chloride 121.0 mmol/L (98-107) H 01/30/21 04:24 ABG Glucose 247 mg/dL (65-95) H 01/30/21 04:24 Oxyhemoglobin 89.1 % (95.0-99.0) L 02/02/21 05:35 Carboxyhemoglobin 0.6 (0.5-1.5) 01/30/21 04:24 FiO2 70 % 02/02/21 05:35 FiO2 % 80 01/30/21 04:24 Sodium 144 mmol/L (137-145) D 02/02/21 11:28 Potassium 4.3 mmol/L (3.6-5.0) 02/02/21 11:28 Chloride 110.4 mmol/L (98-107) H 02/02/21 11:28 Carbon Dioxide 23 mmol/L (22-30) 02/02/21 11:28 Anion Gap 15 mmol/L 02/02/21 11:28 BUN 92 mg/dL (9-20) H 02/02/21 11:28 Creatinine TNR 02/02/21 11:28 Estimated GFR 11 ml/min 02/02/21 11:28 BUN/Creatinine Ratio TNR 02/02/21 11:28 Glucose TNR 02/02/21 11:28 POC Glucose 248 mg/dL (70-105) H 02/02/21 11:53 Lactic Acid 1.90 mmol/L (0.7-2.0) 01/24/21 14:38 Calcium TNR 02/02/21 11:28 Magnesium 2.60 mg/dL (1.7-2.3) H 01/30/21 06:00 Ferritin 763.9 ng/mL (30.0-300.0) H 01/30/21 04:00 Total Bilirubin 1.50 mg/dL (0.1-1.2) H 01/26/21 05:47 AST 37 units/L (5-40) 01/26/21 05:47 ALT 29 units/L (7-56) 01/26/21 05:47 Alkaline Phosphatase 70 units/L (35-129) 01/26/21 05:47 Lactate Dehydrogenase 424 units/L (91-180) H 01/30/21 04:00 C-Reactive Protein 23.90 mg/dL (0.00-1.30) H 01/30/21 04:00 Total Protein 7.2 g/dL (6.3-8.2) 01/26/21 05:47 Albumin 2.2 g/dL (3.9-5) L 01/26/21 05:47 Albumin/Globulin Ratio 0.4 % 01/26/21 05:47 Triglycerides 293 mg/dL (2-149) H 01/30/21 06:00 Procalcitonin 0.92 ng/mL (<0.15) 01/22/21 22:57 Arterial Blood Glucose 247 mg/dL (65-95) H 01/30/21 04:24 Arterial Blood Ionized Calcium 5.0 mg/dL (4.6-5.3) 01/30/21 04:24 Urine Color Nehal (Yellow) 01/22/21 22:39 Urine Turbidity Cloudy (Clear) 01/22/21 22:39 Urine pH 5.0 (5.0-7.0) 01/22/21 22:39 Ur Specific Grant 1.017 (1.003-1.030) 01/22/21 22:39 Urine Protein 100 mg/dl mg/dL (Negative) 01/22/21 22:39 Urine Glucose (UA) Neg mg/dL (Negative) 01/22/21 22:39 Urine Ketones Neg mg/dL (Negative) 01/22/21 22:39 Urine Blood Mod (Negative) 01/22/21 22:39 Urine Nitrite Neg (Negative) 01/22/21 22:39 Urine Bilirubin Neg (Negative) 01/22/21 22:39 Urine Urobilinogen 2.0 mg/dL (<2.0) 01/22/21 22:39 Ur Leukocyte Esterase Mod (Negative) 01/22/21 22:39 Urine WBC (Auto) < 1.0 /HPF (0.0-6.0) 01/22/21 22:39 Urine RBC (Auto) < 1.0 /HPF (0.0-6.0) 01/22/21 22:39 U Epithel Cells (Auto) < 1.0 /HPF (0-13.0) 01/22/21 22:39 Urine Osmolality 416 Mosm/kg 01/30/21 12:15 Urine Total Volume 2300 ml 01/30/21 12:00 Urine Creatinine 53.0 mg/dL (0.1-20.0) H 01/30/21 12:00 Ur Creatinine 24 Hour 1.2 (0.8-2.8) 01/30/21 12:00 Urine Sodium 28 mmol/L 01/22/21 22:39 Random Vancomycin 23.4 ug/mL (0-40.0) 02/02/21 04:04 Coronavirus (PCR) Positive (Negative) A 01/23/21 08:41 Microbiology: Microbiology 01/30/21 16:50 Tracheal Aspirate Sputum Culture - Final 01/30/21 15:29 Peripheral/Venous Blood Culture - Preliminary NO GROWTH AFTER 48 HOURS 01/30/21 15:29 Peripheral/Venous Blood Culture - Preliminary NO GROWTH AFTER 48 HOURS Black/IV: Voiding Method Indwelling Catheter Active Medications - Current Medications Current Medications: Generic Name Dose Route Start Last Admin Trade Name Freq PRN Reason Stop Dose Admin Acetaminophen 650 mg 01/23/21 02:25 Acetaminophen 650 Mg Rect Supp NC Q4H PRN Pain, Mild (1-3) Acetaminophen 650 mg 01/24/21 12:58 01/29/21 18:28 Acetaminophen 325 Mg/10.15 Ml Oral Liqd Unit Dose FEEDTUBE 650 mg Q6H PRN Administration Pain, Mild (1-3) Lipase/Protease/Amylase 1 each 01/26/21 14:25 Lipase 10,500/Protease 25,000/Amylase 43,750 (Units) Dr Cap FEEDTUBE PRN PRN For Clogged Feeding Tube Dextrose 50 ml 01/27/21 07:24 Dextrose 50% In Water (25gm) 50 Ml Syringe IV Q30MIN PRN Hypoglycemia Protocol Enoxaparin Sodium 120 mg 01/26/21 11:00 02/02/21 09:08 Enoxaparin 120 Mg/0.8 Ml Inj SUB-Q 120 mg Q24HR CECE Administration Famotidine 20 mg 01/24/21 10:00 02/02/21 09:08 Famotidine 20 Mg/2 Ml Inj IV 20 mg DAILY CECE Administration Fentanyl 50 mcg 01/22/21 22:39 Fentanyl 100 Mcg/2 Ml Inj IV Q10MIN PRN ANALGESIA Hydrophilic Ointment 1 applic 01/22/21 22:39 Lip Therapy Vaseline TP Q2HR PRN Dry Lips Fentanyl Citrate 2,000 mcg in 100 mls @ 6.124 mls/hr 01/22/21 23:00 02/02/21 13:15 Fentanyl Drip Premix IV 4 mcg/kg/hr TITR CECE 24.494 mls/hr Administration Protocol 1 MCG/KG/HR Propofol 1,000 mg in 100 mls @ 3.674 mls/hr 01/22/21 23:45 02/02/21 13:14 Diprivan 10 Mg/Ml IV 45 mcg/kg/min TITR CECE 33.067 mls/hr Administration Protocol 5 MCG/KG/MIN Norepinephrine 4 mg in 250 mls @ 7.5 mls/hr 01/28/21 14:00 02/01/21 17:48 Levophed Drip 4 Mg/Ns 250 Ml IV 2 mcg/min TITR CECE 7.5 mls/hr Titration Protocol 2 MCG/MIN Dexmedetomidine HCl 1,000 mcg/ 260 mls @ 6.368 mls/hr 01/30/21 20:00 02/02/21 13:25 Sodium Chloride IV 1.4 mcg/kg/hr TITRATE CECE 44.579 mls/hr Administration Protocol 0.2 MCG/KG/HR Sodium Bicarbonate 75 meq/ 1,075 mls @ 100 mls/hr 02/02/21 09:00 02/02/21 09:11 Dextrose IV 02/02/21 19:44 100 mls/hr DIRECT ONE Administration Cefepime HCl 2 gm in 100 mls @ 200 mls/hr 02/02/21 22:00 Cefepime/Ns 2 Gm/100 Ml IV QHS CECE Multi-Ingred Cream/Lotion/Oil/Oint 1 applic 01/22/21 22:39 02/01/21 09:33 Mineral Oil/Petrolatum, White Ophth Oint 3.5 Gm OU 1 applic Q4HR PRN Administration Dry Eye(s) Ondansetron HCl 4 mg 01/23/21 02:17 Ondansetron 4 Mg/2 Ml Inj IV Q8H PRN Nausea And Vomiting Simple Syrup 15 ml 01/26/21 14:25 Simple Syrup 15 Ml FEEDTUBE PRN PRN Hypoglycemia Simple Syrup 30 ml 01/26/21 14:25 Simple Syrup 15 Ml FEEDTUBE PRN PRN Hypoglycemia Sodium Bicarbonate 325 mg 01/26/21 14:25 Sodium Bicarbonate 325 Mg Tab FEEDTUBE PRN PRN For Clogged Feeding Tube Nutrition/Malnutrition Assess - Dietary Evaluation Nutrition/Malnutrition Findings: Nutrition Notes Start: 01/26/21 13:59 Freq: Status: Active Protocol: Document 02/02/21 12:09 CW (Rec: 02/02/21 12:19 CW [id number]) Nutrition Notes Initial or Follow up Reassessment Current Diagnosis Acute Kidney Injury,Diabetes, Sepsis,Hypertension, Respiratory Failure, Hyperlipidemia Other Pertinent Diagnosis COVID-19 (+), bilat pneu Current Diet TF - Nepro at 30 ml/hr Labs/Tests Na 155 K 5.1 BG 238 BUN 90 Cr 6.1 Pertinent Medications propofol at 33.067 ml/hr decadron Height 5 ft 8 in Weight 131.7 kg [place] Body Weight (kg) 70.00 BMI 44.1 Weight change and time frame weight gain likely d/t need for HD Weight Status Morbidly Obese Subjective/Other Information F/U for propofol, proning, vent status and weight. MD noted that pt likely to start HD soon. Weight gain likely r/ t fluid overload. Pt remains on vent. TF running at 50 ml/ hr d/t proning procedures. TF well tolerated at this time. Per RN TF has been flushed at 300 ml q4h x 48 hr. Burn Absent Trauma Absent GI Symptoms None Difficulty In Swallowing Skin Integrity/Comment Intact Current % PO Negligible Minimum of two criteria No physical signs of malnutrition #1 Nutrition Diagnosis Inadequate oral intake Diagnosis Progress(for reassessment Continues documentation) Is patient on ventilator? Yes Is Patient Ambulatory and/or Out of Bed No REE-([facility]-confined to bed) 2514.168 Kcal/Kg value to use for calculation 14 Approximate Energy Requirements Using 1844 kcal/Kg Calculation Used for Recommendations Kcal/kg Additional Notes Pro needs 0.8-1.2g/kg adjBW: 77-115g/day Fluid needs per MD Nutrition Intervention Change Diet Order: Continue TF rate Increase flush to 300 ml q4h Nutrition Support: Continuous TF: Nepro at 30ml/ hr with 300ml water flush q4h for hypernatremia, Once resolve resume flush of 150 ml q4h. (Propofol providing 873 kcal) When proning: Proned position: Nepro at 20ml /hr x 12 hr with 100ml water flush q4h. Supine position: Nepro at 50ml /hr x 12hr with 300ml water flush q4h for hypernatremia, Once resolve resume flush of 200 ml q4h. Kcal 1,296 Protein (gm) 58 Fluid (mL) 523 Goal #1 TF tolerance Goal #2 TF to meet at least 75% energy and pro needs Anticipated Discharge Needs: unable to determine at this time Follow-Up By: 02/05/21 Additional Comments F/U proning, propofol, POC (HD ), vent status
[2021-02-02] MEDS: NORepinephrine/NS 4 MG-250 ML 4 MG/250 ML BAG IV SCH (16:45)
[2021-02-02] MEDS: CEFEPIME/NS 2 GM/100 ML 2 GM/100 ML BAG IV SCH (22:41)
[2021-02-03] MEDS: fentaNYL DRIP Premix 2,000 MCG/100 ML BAG IV SCH ×6 (00:54→21:37)
[2021-02-03] MEDS: dexmedeTOMIDine 1,000 MCG in SODIUM CHLORIDE 0.9% 250ML 250 ML IV SCH ×5 (00:55→23:30)
[2021-02-03 04:42] LABS: Basophils # (Auto) 0.1 K/mm3 (0.0-0.1); Basophils % (Auto) 1.3 % (0.0-1.8); Eosinophils # (Auto) 0.1 K/mm3 (0.0-0.4); Eosinophils % (Auto) 1.9 % (0.0-4.3); Hematocrit 30.4 % (35.5-45.6); Hemoglobin 9.7 gm/dl (11.8-15.2); Lymphocytes # (Auto) 0.5 K/mm3 (1.2-5.4); Lymphocytes % (Auto) 6.1 % (13.4-35.0); Mean Corpuscular HGB Conc 32 % (32-34); Mean Corpuscular Volume 99 fl (84-94); Monocytes # (Auto) 0.4 K/mm3 (0.0-0.8); Monocytes % (Auto) 4.6 % (0.0-7.3); Platelet Count 208 K/mm3 (140-440); Red Blood Count 3.06 M/mm3 (3.65-5.03); Red Cell Distribution Width 15.3 % (13.2-15.2)
[2021-02-03 04:49] LABS: Calcium 6.7 mg/dL (8.4-10.2)
--- NOTE | 2021-02-03 08:29 | Progress Note ---
Assessment and Plan Hypoxic resp failure possible COVID-19 PNA Hyperkalemia Acute renal failure secondary to tubular necorsis Hypernatremia cont to have rising Cr and BUN patient's care was discussed with next of kin yesterday, she agreed with starting HD, all questions answered will initiate HD today for gentle clearance and volume removal, will also order HD for tomorrow will increase free water flushes to 400 cc Q4H Strict I&O daily weight avoid nephrotoxins Renally dose meds Carlton Pitts MD [phone] Subjective Principal diagnosis: Critical COVID19 Objective - Vital Signs Vital signs: Vital Signs - 12hr 02/02/21 02/02/21 02/02/21 20:30 20:45 21:00 Temperature Pulse Rate 82 80 Pulse Rate [ From Monitor] Respiratory 24 33 H 29 H Rate Blood Pressure 115/55 116/55 118/54 O2 Sat by Pulse 90 90 91 Oximetry 02/02/21 02/02/21 02/02/21 21:15 21:30 21:45 Temperature Pulse Rate 79 78 78 Pulse Rate [ From Monitor] Respiratory 30 H 32 H 28 H Rate Blood Pressure 121/54 116/59 115/54 O2 Sat by Pulse 90 90 91 Oximetry 02/02/21 02/02/21 02/02/21 22:00 22:15 22:30 Temperature Pulse Rate 77 78 85 Pulse Rate [ From Monitor] Respiratory 30 H 30 H 11 L Rate Blood Pressure 118/56 117/62 120/62 O2 Sat by Pulse 91 91 91 Oximetry 02/02/21 02/02/21 02/02/21 22:45 22:52 23:00 Temperature Pulse Rate 81 79 80 Pulse Rate [ From Monitor] Respiratory 28 H 25 H 24 Rate Blood Pressure 116/53 116/53 116/59 O2 Sat by Pulse 90 90 91 Oximetry 02/02/21 02/02/21 02/02/21 23:15 23:30 23:40 Temperature Pulse Rate 77 80 85 Pulse Rate [ From Monitor] Respiratory 32 H 31 H Rate Blood Pressure 112/56 119/61 119/61 O2 Sat by Pulse 91 91 92 Oximetry 02/02/21 02/03/21 02/03/21 23:45 00:00 00:15 Temperature 98.7 F Pulse Rate 83 81 81 Pulse Rate [ 81 From Monitor] Respiratory 30 H 26 H 27 H Rate Blood Pressure 113/62 122/53 123/62 O2 Sat by Pulse 92 91 91 Oximetry 02/03/21 02/03/21 02/03/21 00:30 00:45 01:00 Temperature Pulse Rate 80 80 80 Pulse Rate [ From Monitor] Respiratory 24 27 H 30 H Rate Blood Pressure 115/59 115/53 119/55 O2 Sat by Pulse 91 90 90 Oximetry 02/03/21 02/03/21 02/03/21 01:15 01:30 01:45 Temperature Pulse Rate 82 81 80 Pulse Rate [ From Monitor] Respiratory 33 H 31 H 29 H Rate Blood Pressure 119/58 130/58 106/55 O2 Sat by Pulse 90 90 90 Oximetry 02/03/21 02/03/21 02/03/21 02:00 02:15 02:30 Temperature Pulse Rate 80 79 80 Pulse Rate [ From Monitor] Respiratory 33 H 26 H 26 H Rate Blood Pressure 113/59 110/52 118/57 O2 Sat by Pulse 90 90 90 Oximetry 02/03/21 02/03/21 02/03/21 02:45 03:00 03:15 Temperature Pulse Rate 79 79 79 Pulse Rate [ From Monitor] Respiratory 32 H 27 H 28 H Rate Blood Pressure 115/52 106/56 109/51 O2 Sat by Pulse 90 90 91 Oximetry 02/03/21 02/03/21 02/03/21 03:30 03:45 04:00 Temperature 99.5 F Pulse Rate 79 79 79 Pulse Rate [ 79 From Monitor] Respiratory 32 H 32 H 30 H Rate Blood Pressure 113/58 117/55 117/55 O2 Sat by Pulse 91 90 91 Oximetry 02/03/21 02/03/21 02/03/21 04:10 04:15 04:30 Temperature Pulse Rate 79 82 87 Pulse Rate [ From Monitor] Respiratory 31 H 32 H Rate Blood Pressure 116/55 125/54 125/58 O2 Sat by Pulse 91 90 90 Oximetry 02/03/21 02/03/21 02/03/21 04:45 05:00 05:15 Temperature Pulse Rate 82 82 81 Pulse Rate [ From Monitor] Respiratory 31 H 30 H 29 H Rate Blood Pressure 119/59 113/55 114/52 O2 Sat by Pulse 90 90 89 Oximetry 02/03/21 02/03/21 02/03/21 05:30 05:45 06:00 Temperature Pulse Rate 81 80 81 Pulse Rate [ From Monitor] Respiratory 29 H 32 H 32 H Rate Blood Pressure 105/55 106/55 103/50 O2 Sat by Pulse 89 91 89 Oximetry 02/03/21 02/03/21 02/03/21 06:15 06:30 06:45 Temperature Pulse Rate 81 81 82 Pulse Rate [ From Monitor] Respiratory 30 H 32 H 29 H Rate Blood Pressure 112/48 108/52 113/56 O2 Sat by Pulse 89 89 89 Oximetry 02/03/21 02/03/21 02/03/21 07:00 07:15 07:30 Temperature Pulse Rate 83 84 84 Pulse Rate [ From Monitor] Respiratory 29 H 31 H 32 H Rate Blood Pressure 114/52 111/53 111/53 O2 Sat by Pulse 89 89 89 Oximetry 02/03/21 02/03/21 02/03/21 07:45 07:58 08:00 Temperature Pulse Rate 84 81 86 Pulse Rate [ 86 From Monitor] Respiratory 31 H 32 H Rate Blood Pressure 112/50 103/50 115/49 O2 Sat by Pulse 90 91 89 Oximetry - Lab 02/03/21 04:10 02/03/21 04:10 Most recent lab results ABG pH 7.199 (7.320-7.450) L 02/03/21 03:12 ABG pCO2 59.2 mm Hg 02/02/21 05:35 ABG pO2 72.5 mm Hg (80.0-90.0) L 02/02/21 05:35 ABG HCO3 22.3 mmol/L (20.0-26.0) 02/02/21 05:35 ABG O2 Saturation 89.6 (0-100) 02/03/21 03:12 Calcium 6.7 mg/dL (8.4-10.2) L 02/03/21 04:10 Phosphorus 8.60 mg/dL (2.5-4.5) H 02/03/21 04:10 Magnesium 2.60 mg/dL (1.7-2.3) H 01/30/21 06:00 Urine Creatinine 53.0 mg/dL (0.1-20.0) H 01/30/21 12:00 Urine Sodium 28 mmol/L 01/22/21 22:39 Medications & Allergies - Medications Allergies/Adverse Reactions: Allergies No Known Allergies Allergy (Unverified 03/12/20 13:41) Home Medications: Home Medications Medication Instructions Recorded Confirmed Last Taken Type Clindamycin [Clindamycin CAP] 300 mg PO Q8H #21 cap 03/12/20 Unknown Rx Insulin NPH/Regular [Novolin 70/30] 18 unit SUB-Q TIDAC #1 vial 03/12/20 Unknown Rx Syringe-Needle,Insulin,0.5 ml 1 box MC TID #1 box 03/12/20 Unknown Rx [Insulin Syringe/Needle 0.5 ML] Active Medications: Generic Name Dose Route Start Last Admin Trade Name Freq PRN Reason Stop Dose Admin Acetaminophen 650 mg 01/23/21 02:25 Acetaminophen 650 Mg Rect Supp NM Q4H PRN Pain, Mild (1-3) Acetaminophen 650 mg 01/24/21 12:58 01/29/21 18:28 Acetaminophen 325 Mg/10.15 Ml Oral Liqd Unit Dose FEEDTUBE 650 mg Q6H PRN Administration Pain, Mild (1-3) Lipase/Protease/Amylase 1 each 01/26/21 14:25 Lipase 10,500/Protease 25,000/Amylase 43,750 (Units) Dr Cap FEEDTUBE PRN PRN For Clogged Feeding Tube Dextrose 50 ml 01/27/21 07:24 Dextrose 50% In Water (25gm) 50 Ml Syringe IV Q30MIN PRN Hypoglycemia Protocol Enoxaparin Sodium 120 mg 01/26/21 11:00 02/02/21 09:08 Enoxaparin 120 Mg/0.8 Ml Inj SUB-Q 120 mg Q24HR CECE Administration Famotidine 20 mg 01/24/21 10:00 02/02/21 09:08 Famotidine 20 Mg/2 Ml Inj IV 20 mg DAILY CECE Administration Fentanyl 50 mcg 01/22/21 22:39 Fentanyl 100 Mcg/2 Ml Inj IV Q10MIN PRN ANALGESIA Hydrophilic Ointment 1 applic 01/22/21 22:39 Lip Therapy Vaseline TP Q2HR PRN Dry Lips Fentanyl Citrate 2,000 mcg in 100 mls @ 6.124 mls/hr 01/22/21 23:00 02/03/21 05:00 Fentanyl Drip Premix IV 4 mcg/kg/hr TITR CECE 24.494 mls/hr Administration Protocol 1 MCG/KG/HR Propofol 1,000 mg in 100 mls @ 3.674 mls/hr 01/22/21 23:45 02/03/21 05:42 Diprivan 10 Mg/Ml IV 45 mcg/kg/min TITR CECE 33.067 mls/hr Administration Protocol 5 MCG/KG/MIN Norepinephrine 4 mg in 250 mls @ 7.5 mls/hr 01/28/21 14:00 02/02/21 16:45 Levophed Drip 4 Mg/Ns 250 Ml IV 2 mcg/min TITR CECE 7.5 mls/hr Administration Protocol 2 MCG/MIN Dexmedetomidine HCl 1,000 mcg/ 260 mls @ 6.368 mls/hr 01/30/21 20:00 02/03/21 06:28 Sodium Chloride IV 1.4 mcg/kg/hr TITRATE CECE 44.579 mls/hr Administration Protocol 0.2 MCG/KG/HR Cefepime HCl 2 gm in 100 mls @ 200 mls/hr 02/02/21 22:00 02/02/21 22:41 Cefepime/Ns 2 Gm/100 Ml IV 200 mls/hr QHS CECE Administration Multi-Ingred Cream/Lotion/Oil/Oint 1 applic 01/22/21 22:39 02/01/21 09:33 Mineral Oil/Petrolatum, White Ophth Oint 3.5 Gm OU 1 applic Q4HR PRN Administration Dry Eye(s) Ondansetron HCl 4 mg 01/23/21 02:17 Ondansetron 4 Mg/2 Ml Inj IV Q8H PRN Nausea And Vomiting Simple Syrup 15 ml 01/26/21 14:25 Simple Syrup 15 Ml FEEDTUBE PRN PRN Hypoglycemia Simple Syrup 30 ml 01/26/21 14:25 Simple Syrup 15 Ml FEEDTUBE PRN PRN Hypoglycemia Sodium Bicarbonate 325 mg 01/26/21 14:25 Sodium Bicarbonate 325 Mg Tab FEEDTUBE PRN PRN For Clogged Feeding Tube
[2021-02-03] MEDS: ENOXAPARIN 120 MG/0.8 ML INJ SUB-Q SCH (09:15)
[2021-02-03] MEDS: FAMOTIDINE 20 MG/2 ML INJ IV SCH (09:16)
--- NOTE | 2021-02-03 09:44 | Progress Note ---
Assessment and Plan Cultures: Blood culture no growth today SARS CoV2 PCR positive 01/22/2021 respiratory culture: Usual respiratory dillon Blood Culture 01/30/2021 no growth today Urine culture 01/30/2021 no growth today Sputum culture 01/30/2021 usual respiratory diloln Assessment: 60 year old male with history of morbid obesity admitted on 01/22/2021 secondary to 3-day history of worsening shortness of breath associated with fever, chills, loss of smell and taste: #Severe sepsis with septic shock: No fever, remains on pressors. likely due to bilateral pneumonia. Urinalysis negative. Procalcitonin elevated in the setting of DEISI. #Critical COVID-19 pneumonia: Patient remains intubated. Chest x-ray with bilateral airspace disease. Inflammatory markers worsening, D-dimer>10K. CRP 40-->23. Completed remdesivir. #Acute respiratory failure: Remains on the ventilator #Transaminitis: Likely secondary to COVID-19. #DEISI: Worsening, creatinine 3.2--> 6.1. To Start hemodialysis Recommendations: -Continue cefepime, vancomycin, renally adjusted D5 of 7 -Check MRSA PCR pending -Continue steroids per pulmonary -Monitor inflammatory markers -Anticoagulation per protocol, very high d-dimer Very guarded prognosis Will follow Jami Laird MD [facility] M [phone] O [phone] Subjective Date of service: 02/03/21 Principal diagnosis: DEISI Interval history: Patient remains critically ill, intubated FiO2 70%, PEEP of 12, remains on Levophed at 2, sedated on propofol. No fever documented. Objective - Exam Narrative Exam: General appearance: Sedated intubated Eyes: anicteric sclerae, moist conjunctivae; no lid-lag; PERRLA HENT: Normocephalic, Atraumatic; normal external ears, nares open, oropharynx limited, endotracheal tube in place, OG tube in place Neck: supple, tracheal midline, no JVD Lungs: CTA, with normal respiratory effort and no intercostal retractions CV: RRR no murmur Abdomen: Soft, nontender Extremities: Bilateral arm edema Skin: No rash. Psych: Sedated Neuro: Sedated Black catheter in place, right arm PICC line - Constitutional Vitals: Vital Signs Temp Pulse Resp BP Pulse Ox 99.0 F 86 28 H 115/49 89 02/03/21 08:00 02/03/21 08:00 02/03/21 08:00 02/03/21 08:00 02/03/21 08:00 Temperature -Last 24 Hours Temperature 99.0 F Temperature 99.5 F Temperature 98.7 F Temperature 98.9 F Temperature 99.1 F Temperature 99.2 F - Labs CBC & Chem 7: 02/03/21 04:10 02/03/21 04:10 Labs: Abnormal lab results 02/02/21 02/02/21 02/02/21 Range/Units 11:28 11:53 16:00 RBC (3.65-5.03) M/mm3 Hgb (11.8-15.2) gm/dl Hct (35.5-45.6) % MCV (84-94) fl RDW (13.2-15.2) % Lymph % (Auto) (13.4-35.0) % Lymph # (Auto) (1.2-5.4) K/mm3 Seg Neutrophils % (40.0-70.0) % ABG pH (7.320-7.450) POC ABG pCO2 (32.0-48.0) mmHg POC ABG pO2 (83-108) mmHg ABG Hemoglobin (12.0-17.5) ABG Oxyhemoglobin (94-98) ABG Sodium (136.0-145.0) mmol/L ABG Potassium (3.40-4.50) mmol/L ABG Chloride (98-107) mmol/L ABG Glucose (65-95) mg/dL Carboxyhemoglobin (0.5-1.5) Sodium (137-145) mmol/L Chloride 110.4 H (98-107) mmol/L Carbon Dioxide (22-30) mmol/L BUN 92 H (9-20) mg/dL Creatinine (0.8-1.3) mg/dL Glucose (75-100) mg/dL POC Glucose 248 H (70-105) mg/dL Hemoglobin A1c 6.3 H (4-6) % Calcium (8.4-10.2) mg/dL Phosphorus (2.5-4.5) mg/dL Arterial Blood Glucose (65-95) mg/dL Arterial Blood Ionized Calcium (4.6-5.3) mg/dL 02/02/21 02/02/21 02/03/21 Range/Units 18:04 23:31 03:12 RBC (3.65-5.03) M/mm3 Hgb (11.8-15.2) gm/dl Hct (35.5-45.6) % MCV (84-94) fl RDW (13.2-15.2) % Lymph % (Auto) (13.4-35.0) % Lymph # (Auto) (1.2-5.4) K/mm3 Seg Neutrophils % (40.0-70.0) % ABG pH 7.199 L (7.320-7.450) POC ABG pCO2 48.3 H (32.0-48.0) mmHg POC ABG pO2 68.3 L (83-108) mmHg ABG Hemoglobin 10.2 L (12.0-17.5) ABG Oxyhemoglobin 89.2 L (94-98) ABG Sodium 155.0 H (136.0-145.0) mmol/L ABG Potassium 4.6 H (3.40-4.50) mmol/L ABG Chloride 121.0 H (98-107) mmol/L ABG Glucose 166 H (65-95) mg/dL Carboxyhemoglobin 0.3 L (0.5-1.5) Sodium (137-145) mmol/L Chloride (98-107) mmol/L Carbon Dioxide (22-30) mmol/L BUN (9-20) mg/dL Creatinine (0.8-1.3) mg/dL Glucose (75-100) mg/dL POC Glucose 199 H 200 H (70-105) mg/dL Hemoglobin A1c (4-6) % Calcium (8.4-10.2) mg/dL Phosphorus (2.5-4.5) mg/dL Arterial Blood Glucose 166 H (65-95) mg/dL Arterial Blood Ionized Calcium 4.1 L (4.6-5.3) mg/dL 02/03/21 02/03/21 02/03/21 Range/Units 04:10 04:10 05:34 RBC 3.06 L (3.65-5.03) M/mm3 Hgb 9.7 L (11.8-15.2) gm/dl Hct 30.4 L (35.5-45.6) % MCV 99 H (84-94) fl RDW 15.3 H (13.2-15.2) % Lymph % (Auto) 6.1 L (13.4-35.0) % Lymph # (Auto) 0.5 L (1.2-5.4) K/mm3 Seg Neutrophils % 86.1 H (40.0-70.0) % ABG pH (7.320-7.450) POC ABG pCO2 (32.0-48.0) mmHg POC ABG pO2 (83-108) mmHg ABG Hemoglobin (12.0-17.5) ABG Oxyhemoglobin (94-98) ABG Sodium (136.0-145.0) mmol/L ABG Potassium (3.40-4.50) mmol/L ABG Chloride (98-107) mmol/L ABG Glucose (65-95) mg/dL Carboxyhemoglobin (0.5-1.5) Sodium 154 H D (137-145) mmol/L Chloride 116.7 H (98-107) mmol/L Carbon Dioxide 20 L (22-30) mmol/L BUN 130 H (9-20) mg/dL Creatinine 9.2 H D (0.8-1.3) mg/dL Glucose 160 H (75-100) mg/dL POC Glucose 130 H (70-105) mg/dL Hemoglobin A1c (4-6) % Calcium 6.7 L (8.4-10.2) mg/dL Phosphorus 8.60 H (2.5-4.5) mg/dL Arterial Blood Glucose (65-95) mg/dL Arterial Blood Ionized Calcium (4.6-5.3) mg/dL
--- NOTE | 2021-02-03 11:12 | XRay Report ---
CHEST 1 VIEW INDICATION: line placement. COMPARISON: One day prior. FINDINGS: Support devices: Right IJ catheter tip projects over the SVC in expected position. Heart: Stable. Lungs/Pleura: Bilateral pulmonary opacities are relatively stable. No pneumothorax is identified. IMPRESSION: 1. No complications after right IJ catheter placement. Signer Name: Donnell Diego MD Signed: 02/03/2021 11:08 AM Workstation Name: [id number]
--- NOTE | 2021-02-03 11:40 | Procedure Note ---
Date of procedure: 02/03/21 Pre-op diagnosis: Acute Renal Failure Post-op diagnosis: same (Acute Renal Failure) Procedure: Called patient's NOK listed in chart on yesterday to obtained informed consent. AGreed to HD catheter being placed. This am, site identified using ultrasound guidance. Vein recognized easier free from visible clot. After prepping the space, the right IJ was accessed using the finder needle. Guide wire was then threaded and skin rafy was made. Dilator was then introduced and then removed. A 15cm trialysis catheter was placed without difficulty. Sutured in place and dressed by nursing. CXR shows good placement of line. Anesthesia: local Surgeon: TARIK HE Estimated blood loss: none Pathology: none Condition: critical Disposition: ICU
--- NOTE | 2021-02-03 11:48 | Progress Note ---
Assessment and Plan 60 y/o male with ARDS secondary most likely to COVID 19 pneumonia. 02/03/21: HD today per renal. Wean FiO2 as tolerated. No further proning as patient cannot tolerate it, however with volume removal, may consider in the future. Use pressors to keep MAPs 65 and greater for HD purporses so volume can be removed. (IJ was wide open (filled with blood)) with patient sitting up at 45 degrees. Guarded prognosis. 02/02/21: After renal speaks with family, will place vascath today. Agree with bicarb drip but will order some pushes now to help with pH. Overall prognosis is very very guarded to poor now that patient is COVID positive and requiring renal replacement therapy. Mortality is very high in these patients. Continue steroid therapy. Unable to tolerate proning. 01/30/21: Will plan for proning later today. Goal will be at least 12hrs but long is okay. Speaking with pharmacy to see if we can get paralytic for a longer period of time. Regardless will prone. Continue heavy sedation. BP stable. Continue steroids. Very very guarded prognosis. 01/29/21: will increase tidal volume and/or increase respiratory rate. Repeat ABG this afternoon. Continue paralytic and adequate sedation. Continue steroid and remdesivir, follow up any renal recs. Prognosis remains guarded. Wean Fio2 for sats >88% 01/28/21: Increased PEEP to 16. Will paralyze patient today and increase sedation. Ordering picc line for possible vasopressor therapy needs. Continue BID steroids. Renal function is slightly better today with fluids but could be making oxygenation worse. Not able to diurese. Still making urine. Continue Remdesivir. Watch for fever curve. If not improvement in the next 24 hours with paralyzing, will prone tomorrow morning. 01/27/21: Continue PEEP at 14. No weaning until FiO2 is at or below 40-45%. C ontinue anticoagulation. Getting Remdesivir now. Continue BID steroids. Renal has increased the fluids. Monitor urine output and renal function. Overall prognosis is very very guarded, especially if renal status worsens. 01/26/21: Increase PEEP to 14. Will add Precedex therapy. If patient does not respond to increases in PEEP may need to prone. Will place patient on lovenox and will feed patient. Remdesivir coming. Continue BID steroids. Prognosis is guarded. 01/25/21: Hold on proning today. Continue BID steroids. ABG this AM was adequate. Pending abg tomorrow, may increase PEEP if not able to wean FiO2 any further. Per charting Remdesivir to arrive tomorrow. Guarded prognosis. 01/24/21: Continue BID steroids. No abg done this am but able to wean FiO2. Will obtain ABG in the am. Hold on proning for right now. Renal following, would like to diurese but they are given fluids for deisi. Agree with ID assessment and note. Guarded prognosis. 1. Increase steroids to BID given size 2. Check with ID to see if he is a candidate for remdesivir or any other experiemental therapy 3. Hold on proning for right now 4. Renal consulted and giving IVF's currently Guarded prognosis. CCT 31 minutes. Subjective Date of service: 02/03/21 Principal diagnosis: DEISI Interval history: BUN and CR worse. Initiating HD today. [facility] HD trialysis catheter placed today with no complications. Objective Vital Signs - 12hr 02/02/21 02/03/21 02/03/21 23:45 00:00 00:15 Temperature 98.7 F Pulse Rate 83 81 81 Pulse Rate [ 81 From Monitor] Respiratory 30 H 26 H 27 H Rate Blood Pressure 113/62 122/53 123/62 O2 Sat by Pulse 92 91 91 Oximetry 02/03/21 02/03/21 02/03/21 00:30 00:45 01:00 Temperature Pulse Rate 80 80 80 Pulse Rate [ From Monitor] Respiratory 24 27 H 30 H Rate Blood Pressure 115/59 115/53 119/55 O2 Sat by Pulse 91 90 90 Oximetry 02/03/21 02/03/21 02/03/21 01:15 01:30 01:45 Temperature Pulse Rate 82 81 80 Pulse Rate [ From Monitor] Respiratory 33 H 31 H 29 H Rate Blood Pressure 119/58 130/58 106/55 O2 Sat by Pulse 90 90 90 Oximetry 02/03/21 02/03/21 02/03/21 02:00 02:15 02:30 Temperature Pulse Rate 80 79 80 Pulse Rate [ From Monitor] Respiratory 33 H 26 H 26 H Rate Blood Pressure 113/59 110/52 118/57 O2 Sat by Pulse 90 90 90 Oximetry 02/03/21 02/03/21 02/03/21 02:45 03:00 03:15 Temperature Pulse Rate 79 79 79 Pulse Rate [ From Monitor] Respiratory 32 H 27 H 28 H Rate Blood Pressure 115/52 106/56 109/51 O2 Sat by Pulse 90 90 91 Oximetry 02/03/21 02/03/21 02/03/21 03:30 03:45 04:00 Temperature 99.5 F Pulse Rate 79 79 79 Pulse Rate [ 79 From Monitor] Respiratory 32 H 32 H 30 H Rate Blood Pressure 113/58 117/55 117/55 O2 Sat by Pulse 91 90 91 Oximetry 02/03/21 02/03/21 02/03/21 04:10 04:15 04:30 Temperature Pulse Rate 79 82 87 Pulse Rate [ From Monitor] Respiratory 31 H 32 H Rate Blood Pressure 116/55 125/54 125/58 O2 Sat by Pulse 91 90 90 Oximetry 02/03/21 02/03/21 02/03/21 04:45 05:00 05:15 Temperature Pulse Rate 82 82 81 Pulse Rate [ From Monitor] Respiratory 31 H 30 H 29 H Rate Blood Pressure 119/59 113/55 114/52 O2 Sat by Pulse 90 90 89 Oximetry 02/03/21 02/03/21 02/03/21 05:30 05:45 06:00 Temperature Pulse Rate 81 80 81 Pulse Rate [ From Monitor] Respiratory 29 H 32 H 32 H Rate Blood Pressure 105/55 106/55 103/50 O2 Sat by Pulse 89 91 89 Oximetry 02/03/21 02/03/21 02/03/21 06:15 06:30 06:45 Temperature Pulse Rate 81 81 82 Pulse Rate [ From Monitor] Respiratory 30 H 32 H 29 H Rate Blood Pressure 112/48 108/52 113/56 O2 Sat by Pulse 89 89 89 Oximetry 02/03/21 02/03/21 02/03/21 07:00 07:15 07:30 Temperature Pulse Rate 83 84 84 Pulse Rate [ From Monitor] Respiratory 29 H 31 H 32 H Rate Blood Pressure 114/52 111/53 111/53 O2 Sat by Pulse 89 89 89 Oximetry 02/03/21 02/03/21 02/03/21 07:45 07:58 08:00 Temperature 99.0 F Pulse Rate 84 81 86 Pulse Rate [ 86 From Monitor] Respiratory 31 H 32 H Rate Blood Pressure 112/50 103/50 115/49 O2 Sat by Pulse 90 91 89 Oximetry 02/03/21 02/03/21 02/03/21 08:15 08:30 08:45 Temperature Pulse Rate 86 87 89 Pulse Rate [ From Monitor] Respiratory 28 H 31 H 30 H Rate Blood Pressure 108/51 110/50 113/48 O2 Sat by Pulse 89 88 88 Oximetry 02/03/21 02/03/21 02/03/21 09:00 09:15 09:30 Temperature Pulse Rate 92 H 102 H 104 H Pulse Rate [ From Monitor] Respiratory 30 H 32 H 31 H Rate Blood Pressure 122/50 129/57 121/53 O2 Sat by Pulse 88 88 87 Oximetry 02/03/21 02/03/21 02/03/21 09:45 10:00 10:15 Temperature Pulse Rate 113 H 107 H 98 H Pulse Rate [ From Monitor] Respiratory 28 H 38 H 24 Rate Blood Pressure 122/57 111/54 98/51 O2 Sat by Pulse 86 94 94 Oximetry 02/03/21 02/03/21 02/03/21 10:30 10:45 11:00 Temperature Pulse Rate 98 H 95 H 96 H Pulse Rate [ From Monitor] Respiratory 26 H 27 H 29 H Rate Blood Pressure 105/48 103/52 105/50 O2 Sat by Pulse 94 94 95 Oximetry Constitutional: comatose Eyes: non-icteric ENT: other (orally intubated and sedated) Neck: supple Effort: mildly labored Ascultation: Bilateral: clear Percussion: Bilateral: not dull Cardiovascular: regular rate and rhythm Gastrointestinal: normoactive bowel sounds CBC and BMP: 02/03/21 04:10 02/03/21 04:10 ABG, PT/INR, D-dimer: ABG ABG pH 7.199 (7.320-7.450) L 02/03/21 03:12 POC ABG pCO2 48.3 mmHg (32.0-48.0) H 02/03/21 03:12 ABG pCO2 59.2 mm Hg 02/02/21 05:35 POC ABG pO2 68.3 mmHg (83-108) L 02/03/21 03:12 ABG pO2 72.5 mm Hg (80.0-90.0) L 02/02/21 05:35 POC ABG HCO3 18.4 02/03/21 03:12 ABG O2 Saturation 89.6 (0-100) 02/03/21 03:12 PT/INR, D-dimer D-Dimer > 72697 ng/mlDDU (0-234) H 01/30/21 04:00 Abnormal lab findings: Abnormal Labs 01/22/21 01/22/21 01/22/21 22:39 22:57 22:57 WBC RBC Hgb Hct MCV MCH MCHC RDW Lymph % (Auto) 6.6 L Lymph # (Auto) 0.5 L Seg Neutrophils % 87.6 H Seg Neuts % (Manual) Lymphocytes % (Manual) Seg Neutrophils # Man Lymphocytes # (Manual) D-Dimer ABG pH POC ABG pCO2 POC ABG pO2 ABG pO2 ABG HCO3 ABG O2 Saturation ABG Base Excess ABG Hemoglobin ABG Oxyhemoglobin ABG Sodium ABG Potassium ABG Chloride ABG Glucose Oxyhemoglobin Carboxyhemoglobin Sodium 129 L Potassium 3.4 L Chloride 90.4 L Carbon Dioxide BUN 34 H Creatinine 1.5 H Glucose 146 H POC Glucose Hemoglobin A1c Lactic Acid Calcium 7.8 L Phosphorus Magnesium Ferritin Total Bilirubin AST 75 H ALT 57 H Lactate Dehydrogenase C-Reactive Protein Albumin 2.9 L Triglycerides Arterial Blood Glucose Arterial Blood Ionized Calcium Urine Creatinine 301.2 H Coronavirus (PCR) 01/22/21 01/22/21 01/22/21 22:57 22:57 22:57 WBC RBC Hgb Hct MCV MCH MCHC RDW Lymph % (Auto) Lymph # (Auto) Seg Neutrophils % Seg Neuts % (Manual) Lymphocytes % (Manual) Seg Neutrophils # Man Lymphocytes # (Manual) D-Dimer 1173.89 H ABG pH POC ABG pCO2 POC ABG pO2 ABG pO2 ABG HCO3 ABG O2 Saturation ABG Base Excess ABG Hemoglobin ABG Oxyhemoglobin ABG Sodium ABG Potassium ABG Chloride ABG Glucose Oxyhemoglobin Carboxyhemoglobin Sodium Potassium Chloride Carbon Dioxide BUN Creatinine Glucose 149 H POC Glucose Hemoglobin A1c Lactic Acid 2.10 H* Calcium Phosphorus Magnesium Ferritin Total Bilirubin AST ALT Lactate Dehydrogenase 685 H C-Reactive Protein 30.40 H Albumin Triglycerides Arterial Blood Glucose Arterial Blood Ionized Calcium Urine Creatinine Coronavirus (PCR) 01/22/21 01/23/21 01/23/21 22:57 08:41 10:01 WBC RBC Hgb Hct MCV MCH MCHC RDW Lymph % (Auto) Lymph # (Auto) Seg Neutrophils % Seg Neuts % (Manual) Lymphocytes % (Manual) Seg Neutrophils # Man Lymphocytes # (Manual) D-Dimer ABG pH POC ABG pCO2 POC ABG pO2 ABG pO2 ABG HCO3 ABG O2 Saturation ABG Base Excess ABG Hemoglobin ABG Oxyhemoglobin ABG Sodium ABG Potassium ABG Chloride ABG Glucose Oxyhemoglobin Carboxyhemoglobin Sodium 131 L Potassium Chloride 88.7 L Carbon Dioxide 18 L BUN 36 H Creatinine 1.6 H Glucose 147 H POC Glucose Hemoglobin A1c Lactic Acid Calcium 7.5 L Phosphorus Magnesium Ferritin 1207.0 H Total Bilirubin AST ALT Lactate Dehydrogenase C-Reactive Protein Albumin Triglycerides Arterial Blood Glucose Arterial Blood Ionized Calcium Urine Creatinine Coronavirus (PCR) Positive A 01/23/21 01/23/21 01/24/21 20:49 Unknown 00:10 WBC RBC Hgb Hct MCV MCH MCHC RDW Lymph % (Auto) Lymph # (Auto) Seg Neutrophils % Seg Neuts % (Manual) Lymphocytes % (Manual) Seg Neutrophils # Man Lymphocytes # (Manual) D-Dimer ABG pH POC ABG pCO2 POC ABG pO2 ABG pO2 165.4 H ABG HCO3 ABG O2 Saturation ABG Base Excess -2.5 L ABG Hemoglobin ABG Oxyhemoglobin ABG Sodium ABG Potassium ABG Chloride ABG Glucose Oxyhemoglobin Carboxyhemoglobin Sodium 130 L Potassium Chloride 91.0 L Carbon Dioxide 20 L BUN 52 H Creatinine 3.8 H D Glucose 150 H POC Glucose 125 H Hemoglobin A1c Lactic Acid Calcium 8.0 L Phosphorus Magnesium Ferritin Total Bilirubin AST 42 H ALT Lactate Dehydrogenase C-Reactive Protein Albumin 2.4 L Triglycerides Arterial Blood Glucose Arterial Blood Ionized Calcium Urine Creatinine Coronavirus (PCR) 01/24/21 01/24/21 01/24/21 05:05 05:05 05:05 WBC 14.0 H RBC Hgb Hct MCV 95 H MCH 33 H MCHC RDW Lymph % (Auto) Lymph # (Auto) Seg Neutrophils % Seg Neuts % (Manual) 91.0 H Lymphocytes % (Manual) 4.0 L Seg Neutrophils # Man 12.7 H Lymphocytes # (Manual) 0.6 L D-Dimer 6159.48 H ABG pH POC ABG pCO2 POC ABG pO2 ABG pO2 ABG HCO3 ABG O2 Saturation ABG Base Excess ABG Hemoglobin ABG Oxyhemoglobin ABG Sodium ABG Potassium ABG Chloride ABG Glucose Oxyhemoglobin Carboxyhemoglobin Sodium Potassium Chloride Carbon Dioxide BUN Creatinine Glucose POC Glucose Hemoglobin A1c Lactic Acid Calcium Phosphorus Magnesium Ferritin 1178.0 H Total Bilirubin AST ALT Lactate Dehydrogenase C-Reactive Protein Albumin Triglycerides Arterial Blood Glucose Arterial Blood Ionized Calcium Urine Creatinine Coronavirus (PCR) 01/24/21 01/24/21 01/24/21 05:05 05:05 05:05 WBC RBC Hgb Hct MCV MCH MCHC RDW Lymph % (Auto) Lymph # (Auto) Seg Neutrophils % Seg Neuts % (Manual) Lymphocytes % (Manual) Seg Neutrophils # Man Lymphocytes # (Manual) D-Dimer ABG pH POC ABG pCO2 POC ABG pO2 ABG pO2 ABG HCO3 ABG O2 Saturation ABG Base Excess ABG Hemoglobin ABG Oxyhemoglobin ABG Sodium ABG Potassium ABG Chloride ABG Glucose Oxyhemoglobin Carboxyhemoglobin Sodium 132 L Potassium Chloride 93.1 L Carbon Dioxide 21 L BUN 57 H Creatinine 3.7 H Glucose 133 H POC Glucose Hemoglobin A1c Lactic Acid 2.20 H* Calcium 7.7 L Phosphorus Magnesium Ferritin Total Bilirubin AST ALT Lactate Dehydrogenase 658 H C-Reactive Protein 33.20 H Albumin 2.4 L Triglycerides Arterial Blood Glucose Arterial Blood Ionized Calcium Urine Creatinine Coronavirus (PCR) 01/24/21 01/24/21 01/24/21 05:34 06:00 17:35 WBC RBC Hgb Hct MCV MCH MCHC RDW Lymph % (Auto) Lymph # (Auto) Seg Neutrophils % Seg Neuts % (Manual) Lymphocytes % (Manual) Seg Neutrophils # Man Lymphocytes # (Manual) D-Dimer ABG pH POC ABG pCO2 POC ABG pO2 ABG pO2 ABG HCO3 ABG O2 Saturation ABG Base Excess ABG Hemoglobin ABG Oxyhemoglobin ABG Sodium ABG Potassium ABG Chloride ABG Glucose Oxyhemoglobin Carboxyhemoglobin Sodium Potassium Chloride Carbon Dioxide BUN Creatinine Glucose POC Glucose 136 H 137 H Hemoglobin A1c Lactic Acid Calcium Phosphorus Magnesium 2.80 H Ferritin Total Bilirubin AST ALT Lactate Dehydrogenase C-Reactive Protein Albumin Triglycerides Arterial Blood Glucose Arterial Blood Ionized Calcium Urine Creatinine Coronavirus (PCR) 01/25/21 01/25/21 01/25/21 04:15 05:40 05:40 WBC RBC Hgb Hct MCV 95 H MCH 33 H MCHC 35 H RDW Lymph % (Auto) Lymph # (Auto) Seg Neutrophils % Seg Neuts % (Manual) 95.0 H Lymphocytes % (Manual) 3.0 L Seg Neutrophils # Man 7.8 H Lymphocytes # (Manual) 0.2 L D-Dimer ABG pH POC ABG pCO2 POC ABG pO2 63.2 L ABG pO2 ABG HCO3 ABG O2 Saturation ABG Base Excess ABG Hemoglobin ABG Oxyhemoglobin 89.6 L ABG Sodium ABG Potassium ABG Chloride ABG Glucose 165 H Oxyhemoglobin Carboxyhemoglobin 0.3 L Sodium Potassium Chloride Carbon Dioxide BUN 67 H Creatinine 3.4 H Glucose 153 H POC Glucose Hemoglobin A1c Lactic Acid Calcium 7.5 L Phosphorus Magnesium Ferritin Total Bilirubin 1.40 H AST 62 H ALT Lactate Dehydrogenase C-Reactive Protein Albumin 2.6 L Triglycerides Arterial Blood Glucose 165 H Arterial Blood Ionized Calcium 4.3 L Urine Creatinine Coronavirus (PCR) 01/25/21 01/25/21 01/25/21 05:59 12:00 17:17 WBC RBC Hgb Hct MCV MCH MCHC RDW Lymph % (Auto) Lymph # (Auto) Seg Neutrophils % Seg Neuts % (Manual) Lymphocytes % (Manual) Seg Neutrophils # Man Lymphocytes # (Manual) D-Dimer ABG pH POC ABG pCO2 POC ABG pO2 ABG pO2 ABG HCO3 ABG O2 Saturation ABG Base Excess ABG Hemoglobin ABG Oxyhemoglobin ABG Sodium ABG Potassium ABG Chloride ABG Glucose Oxyhemoglobin Carboxyhemoglobin Sodium Potassium Chloride Carbon Dioxide BUN Creatinine Glucose POC Glucose 140 H 143 H 149 H Hemoglobin A1c Lactic Acid Calcium Phosphorus Magnesium Ferritin Total Bilirubin AST ALT Lactate Dehydrogenase C-Reactive Protein Albumin Triglycerides Arterial Blood Glucose Arterial Blood Ionized Calcium Urine Creatinine Coronavirus (PCR) 01/25/21 01/26/21 01/26/21 23:41 03:43 05:46 WBC RBC Hgb Hct MCV MCH MCHC RDW Lymph % (Auto) Lymph # (Auto) Seg Neutrophils % Seg Neuts % (Manual) Lymphocytes % (Manual) Seg Neutrophils # Man Lymphocytes # (Manual) D-Dimer ABG pH POC ABG pCO2 POC ABG pO2 70.0 L ABG pO2 ABG HCO3 ABG O2 Saturation ABG Base Excess ABG Hemoglobin ABG Oxyhemoglobin 91.9 L ABG Sodium ABG Potassium ABG Chloride 109.0 H ABG Glucose 165 H Oxyhemoglobin Carboxyhemoglobin Sodium Potassium Chloride Carbon Dioxide BUN Creatinine Glucose POC Glucose 132 H 161 H Hemoglobin A1c Lactic Acid Calcium Phosphorus Magnesium Ferritin Total Bilirubin AST ALT Lactate Dehydrogenase C-Reactive Protein Albumin Triglycerides Arterial Blood Glucose 165 H Arterial Blood Ionized Calcium 4.5 L Urine Creatinine Coronavirus (PCR) 01/26/21 01/26/21 01/26/21 05:47 05:47 05:47 WBC RBC Hgb Hct 35.3 L MCV 96 H MCH 33 H MCHC RDW Lymph % (Auto) Lymph # (Auto) Seg Neutrophils % Seg Neuts % (Manual) 96.0 H Lymphocytes % (Manual) 2.0 L Seg Neutrophils # Man Lymphocytes # (Manual) 0.1 L D-Dimer > 95584 H ABG pH POC ABG pCO2 POC ABG pO2 ABG pO2 ABG HCO3 ABG O2 Saturation ABG Base Excess ABG Hemoglobin ABG Oxyhemoglobin ABG Sodium ABG Potassium ABG Chloride ABG Glucose Oxyhemoglobin Carboxyhemoglobin Sodium Potassium Chloride Carbon Dioxide BUN 57 H Creatinine 2.2 H Glucose 185 H POC Glucose Hemoglobin A1c Lactic Acid Calcium 8.1 L Phosphorus Magnesium Ferritin Total Bilirubin AST ALT Lactate Dehydrogenase C-Reactive Protein Albumin Triglycerides Arterial Blood Glucose Arterial Blood Ionized Calcium Urine Creatinine Coronavirus (PCR) 01/26/21 01/26/21 01/26/21 05:47 05:47 05:47 WBC RBC Hgb Hct MCV MCH MCHC RDW Lymph % (Auto) Lymph # (Auto) Seg Neutrophils % Seg Neuts % (Manual) Lymphocytes % (Manual) Seg Neutrophils # Man Lymphocytes # (Manual) D-Dimer ABG pH POC ABG pCO2 POC ABG pO2 ABG pO2 ABG HCO3 ABG O2 Saturation ABG Base Excess ABG Hemoglobin ABG Oxyhemoglobin ABG Sodium ABG Potassium ABG Chloride ABG Glucose Oxyhemoglobin Carboxyhemoglobin Sodium Potassium Chloride 107.1 H Carbon Dioxide BUN 56 H Creatinine 2.2 H Glucose 188 H POC Glucose Hemoglobin A1c Lactic Acid Calcium 8.0 L Phosphorus Magnesium Ferritin 1178.0 H Total Bilirubin 1.50 H AST ALT Lactate Dehydrogenase 588 H C-Reactive Protein 40.10 H Albumin 2.2 L Triglycerides Arterial Blood Glucose Arterial Blood Ionized Calcium Urine Creatinine Coronavirus (PCR) 01/26/21 01/26/21 01/26/21 11:34 18:17 23:20 WBC RBC Hgb Hct MCV MCH MCHC RDW Lymph % (Auto) Lymph # (Auto) Seg Neutrophils % Seg Neuts % (Manual) Lymphocytes % (Manual) Seg Neutrophils # Man Lymphocytes # (Manual) D-Dimer ABG pH POC ABG pCO2 POC ABG pO2 ABG pO2 ABG HCO3 ABG O2 Saturation ABG Base Excess ABG Hemoglobin ABG Oxyhemoglobin ABG Sodium ABG Potassium ABG Chloride ABG Glucose Oxyhemoglobin Carboxyhemoglobin Sodium Potassium Chloride Carbon Dioxide BUN Creatinine Glucose POC Glucose 129 H 205 H 155 H Hemoglobin A1c Lactic Acid Calcium Phosphorus Magnesium Ferritin Total Bilirubin AST ALT Lactate Dehydrogenase C-Reactive Protein Albumin Triglycerides Arterial Blood Glucose Arterial Blood Ionized Calcium Urine Creatinine Coronavirus (PCR) 01/27/21 01/27/21 01/27/21 02:45 05:29 05:29 WBC RBC 3.58 L Hgb 11.7 L Hct 34.9 L MCV 97 H MCH 33 H MCHC RDW Lymph % (Auto) Lymph # (Auto) Seg Neutrophils % Seg Neuts % (Manual) 88.0 H Lymphocytes % (Manual) 7.0 L Seg Neutrophils # Man Lymphocytes # (Manual) 0.5 L D-Dimer ABG pH 7.319 L POC ABG pCO2 50.7 H POC ABG pO2 63.0 L ABG pO2 ABG HCO3 ABG O2 Saturation ABG Base Excess ABG Hemoglobin ABG Oxyhemoglobin ABG Sodium 145.2 H ABG Potassium 5.1 H ABG Chloride 114.0 H ABG Glucose 178 H Oxyhemoglobin Carboxyhemoglobin Sodium Potassium Chloride Carbon Dioxide BUN Creatinine Glucose POC Glucose Hemoglobin A1c Lactic Acid Calcium Phosphorus Magnesium 4.00 H Ferritin Total Bilirubin AST ALT Lactate Dehydrogenase C-Reactive Protein Albumin Triglycerides Arterial Blood Glucose 178 H Arterial Blood Ionized Calcium Urine Creatinine Coronavirus (PCR) 01/27/21 01/27/21 01/27/21 05:29 05:29 05:31 WBC RBC Hgb Hct MCV MCH MCHC RDW Lymph % (Auto) Lymph # (Auto) Seg Neutrophils % Seg Neuts % (Manual) Lymphocytes % (Manual) Seg Neutrophils # Man Lymphocytes # (Manual) D-Dimer ABG pH POC ABG pCO2 POC ABG pO2 ABG pO2 ABG HCO3 ABG O2 Saturation ABG Base Excess ABG Hemoglobin ABG Oxyhemoglobin ABG Sodium ABG Potassium ABG Chloride ABG Glucose Oxyhemoglobin Carboxyhemoglobin Sodium Potassium 5.2 H Chloride 109.6 H Carbon Dioxide BUN 67 H Creatinine 2.8 H Glucose 195 H POC Glucose 176 H Hemoglobin A1c Lactic Acid Calcium 7.9 L Phosphorus Magnesium Ferritin Total Bilirubin AST ALT Lactate Dehydrogenase C-Reactive Protein Albumin Triglycerides 160 H Arterial Blood Glucose Arterial Blood Ionized Calcium Urine Creatinine Coronavirus (PCR) 01/27/21 01/27/21 01/27/21 11:27 18:08 23:30 WBC RBC Hgb Hct MCV MCH MCHC RDW Lymph % (Auto) Lymph # (Auto) Seg Neutrophils % Seg Neuts % (Manual) Lymphocytes % (Manual) Seg Neutrophils # Man Lymphocytes # (Manual) D-Dimer ABG pH POC ABG pCO2 POC ABG pO2 ABG pO2 ABG HCO3 ABG O2 Saturation ABG Base Excess ABG Hemoglobin ABG Oxyhemoglobin ABG Sodium ABG Potassium ABG Chloride ABG Glucose Oxyhemoglobin Carboxyhemoglobin Sodium Potassium Chloride Carbon Dioxide BUN Creatinine Glucose POC Glucose 189 H 212 H 175 H Hemoglobin A1c Lactic Acid Calcium Phosphorus Magnesium Ferritin Total Bilirubin AST ALT Lactate Dehydrogenase C-Reactive Protein Albumin Triglycerides Arterial Blood Glucose Arterial Blood Ionized Calcium Urine Creatinine Coronavirus (PCR) 01/28/21 01/28/21 01/28/21 03:58 04:00 04:00 WBC RBC Hgb Hct MCV MCH MCHC RDW Lymph % (Auto) Lymph # (Auto) Seg Neutrophils % Seg Neuts % (Manual) Lymphocytes % (Manual) Seg Neutrophils # Man Lymphocytes # (Manual) D-Dimer > 12599 H ABG pH POC ABG pCO2 POC ABG pO2 52.9 L ABG pO2 ABG HCO3 ABG O2 Saturation ABG Base Excess ABG Hemoglobin ABG Oxyhemoglobin 84.1 L ABG Sodium 148.9 H ABG Potassium ABG Chloride 117.0 H ABG Glucose 194 H Oxyhemoglobin Carboxyhemoglobin Sodium Potassium Chloride Carbon Dioxide BUN Creatinine Glucose POC Glucose Hemoglobin A1c Lactic Acid Calcium Phosphorus Magnesium Ferritin Total Bilirubin AST ALT Lactate Dehydrogenase 679 H C-Reactive Protein 17.10 H Albumin Triglycerides Arterial Blood Glucose 194 H Arterial Blood Ionized Calcium Urine Creatinine Coronavirus (PCR) 01/28/21 01/28/21 01/28/21 04:00 05:00 06:00 WBC RBC 3.59 L Hgb 11.6 L Hct 34.8 L MCV 97 H MCH MCHC RDW Lymph % (Auto) Lymph # (Auto) Seg Neutrophils % Seg Neuts % (Manual) 96.0 H Lymphocytes % (Manual) 3.0 L Seg Neutrophils # Man Lymphocytes # (Manual) 0.2 L D-Dimer ABG pH POC ABG pCO2 POC ABG pO2 ABG pO2 ABG HCO3 ABG O2 Saturation ABG Base Excess ABG Hemoglobin ABG Oxyhemoglobin ABG Sodium ABG Potassium ABG Chloride ABG Glucose Oxyhemoglobin Carboxyhemoglobin Sodium Potassium Chloride Carbon Dioxide BUN Creatinine Glucose POC Glucose 159 H Hemoglobin A1c Lactic Acid Calcium Phosphorus Magnesium Ferritin 798.0 H Total Bilirubin AST ALT Lactate Dehydrogenase C-Reactive Protein Albumin Triglycerides Arterial Blood Glucose Arterial Blood Ionized Calcium Urine Creatinine Coronavirus (PCR) 01/28/21 01/28/21 01/28/21 06:00 06:00 08:12 WBC RBC Hgb Hct MCV MCH MCHC RDW Lymph % (Auto) Lymph # (Auto) Seg Neutrophils % Seg Neuts % (Manual) Lymphocytes % (Manual) Seg Neutrophils # Man Lymphocytes # (Manual) D-Dimer ABG pH POC ABG pCO2 POC ABG pO2 ABG pO2 ABG HCO3 ABG O2 Saturation ABG Base Excess ABG Hemoglobin ABG Oxyhemoglobin ABG Sodium ABG Potassium ABG Chloride ABG Glucose Oxyhemoglobin Carboxyhemoglobin Sodium Potassium Chloride 111.9 H Carbon Dioxide BUN 59 H Creatinine 2.2 H Glucose 189 H POC Glucose 181 H Hemoglobin A1c Lactic Acid Calcium 8.1 L Phosphorus Magnesium 3.20 H Ferritin Total Bilirubin AST ALT Lactate Dehydrogenase C-Reactive Protein Albumin Triglycerides Arterial Blood Glucose Arterial Blood Ionized Calcium Urine Creatinine Coronavirus (PCR) 01/28/21 01/28/21 01/28/21 12:03 16:43 23:51 WBC RBC Hgb Hct MCV MCH MCHC RDW Lymph % (Auto) Lymph # (Auto) Seg Neutrophils % Seg Neuts % (Manual) Lymphocytes % (Manual) Seg Neutrophils # Man Lymphocytes # (Manual) D-Dimer ABG pH POC ABG pCO2 POC ABG pO2 ABG pO2 ABG HCO3 ABG O2 Saturation ABG Base Excess ABG Hemoglobin ABG Oxyhemoglobin ABG Sodium ABG Potassium ABG Chloride ABG Glucose Oxyhemoglobin Carboxyhemoglobin Sodium Potassium Chloride Carbon Dioxide BUN Creatinine Glucose POC Glucose 164 H 198 H 196 H Hemoglobin A1c Lactic Acid Calcium Phosphorus Magnesium Ferritin Total Bilirubin AST ALT Lactate Dehydrogenase C-Reactive Protein Albumin Triglycerides Arterial Blood Glucose Arterial Blood Ionized Calcium Urine Creatinine Coronavirus (PCR) 01/29/21 01/29/21 01/29/21 05:00 05:23 06:00 WBC RBC Hgb Hct MCV MCH MCHC RDW Lymph % (Auto) Lymph # (Auto) Seg Neutrophils % Seg Neuts % (Manual) Lymphocytes % (Manual) Seg Neutrophils # Man Lymphocytes # (Manual) D-Dimer ABG pH 7.119 L POC ABG pCO2 87.1 H POC ABG pO2 ABG pO2 ABG HCO3 ABG O2 Saturation ABG Base Excess ABG Hemoglobin ABG Oxyhemoglobin ABG Sodium 152.5 H ABG Potassium 5.7 H ABG Chloride 120.0 H ABG Glucose 217 H Oxyhemoglobin Carboxyhemoglobin Sodium 151 H Potassium 5.9 H D Chloride 117.8 H Carbon Dioxide BUN 54 H Creatinine 2.2 H Glucose 208 H POC Glucose 180 H Hemoglobin A1c Lactic Acid Calcium 7.9 L Phosphorus Magnesium Ferritin Total Bilirubin AST ALT Lactate Dehydrogenase C-Reactive Protein Albumin Triglycerides Arterial Blood Glucose 217 H Arterial Blood Ionized Calcium Urine Creatinine Coronavirus (PCR) 01/29/21 01/29/21 01/29/21 12:29 17:28 18:05 WBC RBC Hgb Hct MCV MCH MCHC RDW Lymph % (Auto) Lymph # (Auto) Seg Neutrophils % Seg Neuts % (Manual) Lymphocytes % (Manual) Seg Neutrophils # Man Lymphocytes # (Manual) D-Dimer ABG pH POC ABG pCO2 POC ABG pO2 ABG pO2 ABG HCO3 ABG O2 Saturation ABG Base Excess ABG Hemoglobin ABG Oxyhemoglobin ABG Sodium ABG Potassium ABG Chloride ABG Glucose Oxyhemoglobin Carboxyhemoglobin Sodium 151 H Potassium 5.5 H Chloride 118.2 H Carbon Dioxide BUN 52 H Creatinine 2.2 H Glucose 224 H POC Glucose 181 H 203 H Hemoglobin A1c Lactic Acid Calcium 8.0 L Phosphorus Magnesium Ferritin Total Bilirubin AST ALT Lactate Dehydrogenase C-Reactive Protein Albumin Triglycerides Arterial Blood Glucose Arterial Blood Ionized Calcium Urine Creatinine Coronavirus (PCR) 01/29/21 01/29/21 01/29/21 18:13 23:34 Unknown WBC RBC Hgb Hct MCV 101 H MCH MCHC RDW 15.7 H Lymph % (Auto) Lymph # (Auto) Seg Neutrophils % Seg Neuts % (Manual) 95.0 H Lymphocytes % (Manual) 3.0 L Seg Neutrophils # Man 8.0 H Lymphocytes # (Manual) 0.3 L D-Dimer ABG pH 7.223 L POC ABG pCO2 64.8 H POC ABG pO2 63.6 L ABG pO2 ABG HCO3 ABG O2 Saturation ABG Base Excess ABG Hemoglobin ABG Oxyhemoglobin 89.4 L ABG Sodium 152.9 H ABG Potassium 5.3 H ABG Chloride 121.0 H ABG Glucose 227 H Oxyhemoglobin Carboxyhemoglobin Sodium Potassium Chloride Carbon Dioxide BUN Creatinine Glucose POC Glucose 198 H Hemoglobin A1c Lactic Acid Calcium Phosphorus Magnesium Ferritin Total Bilirubin AST ALT Lactate Dehydrogenase C-Reactive Protein Albumin Triglycerides Arterial Blood Glucose 227 H Arterial Blood Ionized Calcium Urine Creatinine Coronavirus (PCR) 01/30/21 01/30/21 01/30/21 04:00 04:00 04:00 WBC RBC Hgb Hct MCV MCH MCHC RDW Lymph % (Auto) Lymph # (Auto) Seg Neutrophils % Seg Neuts % (Manual) Lymphocytes % (Manual) Seg Neutrophils # Man Lymphocytes # (Manual) D-Dimer > 43949 H ABG pH POC ABG pCO2 POC ABG pO2 ABG pO2 ABG HCO3 ABG O2 Saturation ABG Base Excess ABG Hemoglobin ABG Oxyhemoglobin ABG Sodium ABG Potassium ABG Chloride ABG Glucose Oxyhemoglobin Carboxyhemoglobin Sodium Potassium Chloride Carbon Dioxide BUN Creatinine Glucose 234 H POC Glucose Hemoglobin A1c Lactic Acid Calcium Phosphorus Magnesium Ferritin 763.9 H Total Bilirubin AST ALT Lactate Dehydrogenase 424 H C-Reactive Protein 23.90 H Albumin Triglycerides Arterial Blood Glucose Arterial Blood Ionized Calcium Urine Creatinine Coronavirus (PCR) 01/30/21 01/30/21 01/30/21 04:24 05:00 05:16 WBC RBC 3.57 L Hgb 11.3 L Hct 35.4 L MCV 99 H MCH MCHC RDW 15.6 H Lymph % (Auto) Lymph # (Auto) Seg Neutrophils % Seg Neuts % (Manual) 97.0 H Lymphocytes % (Manual) 1.0 L Seg Neutrophils # Man 8.6 H Lymphocytes # (Manual) 0.1 L D-Dimer ABG pH 7.235 L POC ABG pCO2 69.7 H POC ABG pO2 61.0 L ABG pO2 ABG HCO3 ABG O2 Saturation ABG Base Excess ABG Hemoglobin ABG Oxyhemoglobin 89 L ABG Sodium 154.2 H ABG Potassium 5.4 H ABG Chloride 121.0 H ABG Glucose 247 H Oxyhemoglobin Carboxyhemoglobin Sodium Potassium Chloride Carbon Dioxide BUN Creatinine Glucose POC Glucose 238 H Hemoglobin A1c Lactic Acid Calcium Phosphorus Magnesium Ferritin Total Bilirubin AST ALT Lactate Dehydrogenase C-Reactive Protein Albumin Triglycerides Arterial Blood Glucose 247 H Arterial Blood Ionized Calcium Urine Creatinine Coronavirus (PCR) 01/30/21 01/30/21 01/30/21 06:00 11:28 12:00 WBC RBC Hgb Hct MCV MCH MCHC RDW Lymph % (Auto) Lymph # (Auto) Seg Neutrophils % Seg Neuts % (Manual) Lymphocytes % (Manual) Seg Neutrophils # Man Lymphocytes # (Manual) D-Dimer ABG pH POC ABG pCO2 POC ABG pO2 ABG pO2 ABG HCO3 ABG O2 Saturation ABG Base Excess ABG Hemoglobin ABG Oxyhemoglobin ABG Sodium ABG Potassium ABG Chloride ABG Glucose Oxyhemoglobin Carboxyhemoglobin Sodium 152 H Potassium 5.3 H Chloride 120.5 H Carbon Dioxide BUN 50 H Creatinine 2.3 H Glucose 239 H POC Glucose 153 H Hemoglobin A1c Lactic Acid Calcium 8.2 L Phosphorus Magnesium 2.60 H Ferritin Total Bilirubin AST ALT Lactate Dehydrogenase C-Reactive Protein Albumin Triglycerides 293 H Arterial Blood Glucose Arterial Blood Ionized Calcium Urine Creatinine 53.0 H Coronavirus (PCR) 01/30/21 01/30/21 01/31/21 18:49 23:06 04:00 WBC RBC Hgb Hct MCV MCH MCHC RDW Lymph % (Auto) Lymph # (Auto) Seg Neutrophils % Seg Neuts % (Manual) Lymphocytes % (Manual) Seg Neutrophils # Man Lymphocytes # (Manual) D-Dimer ABG pH POC ABG pCO2 POC ABG pO2 ABG pO2 ABG HCO3 ABG O2 Saturation ABG Base Excess ABG Hemoglobin ABG Oxyhemoglobin ABG Sodium ABG Potassium ABG Chloride ABG Glucose Oxyhemoglobin Carboxyhemoglobin Sodium 156 H Potassium 5.9 H Chloride 122.6 H Carbon Dioxide BUN 61 H Creatinine 3.2 H Glucose 205 H POC Glucose 220 H 192 H Hemoglobin A1c Lactic Acid Calcium 8.0 L Phosphorus Magnesium Ferritin Total Bilirubin AST ALT Lactate Dehydrogenase C-Reactive Protein Albumin Triglycerides Arterial Blood Glucose Arterial Blood Ionized Calcium Urine Creatinine Coronavirus (PCR) 01/31/21 01/31/21 01/31/21 04:40 05:17 11:33 WBC RBC Hgb Hct MCV MCH MCHC RDW Lymph % (Auto) Lymph # (Auto) Seg Neutrophils % Seg Neuts % (Manual) Lymphocytes % (Manual) Seg Neutrophils # Man Lymphocytes # (Manual) D-Dimer ABG pH 7.161 L* POC ABG pCO2 POC ABG pO2 ABG pO2 142.2 H ABG HCO3 28.3 H ABG O2 Saturation ABG Base Excess -3.2 L ABG Hemoglobin ABG Oxyhemoglobin ABG Sodium ABG Potassium ABG Chloride ABG Glucose Oxyhemoglobin Carboxyhemoglobin Sodium Potassium Chloride Carbon Dioxide BUN Creatinine Glucose POC Glucose 200 H 167 H Hemoglobin A1c Lactic Acid Calcium Phosphorus Magnesium Ferritin Total Bilirubin AST ALT Lactate Dehydrogenase C-Reactive Protein Albumin Triglycerides Arterial Blood Glucose Arterial Blood Ionized Calcium Urine Creatinine Coronavirus (PCR) 01/31/21 01/31/21 01/31/21 14:00 17:10 23:24 WBC RBC Hgb Hct MCV MCH MCHC RDW Lymph % (Auto) Lymph # (Auto) Seg Neutrophils % Seg Neuts % (Manual) Lymphocytes % (Manual) Seg Neutrophils # Man Lymphocytes # (Manual) D-Dimer ABG pH 7.205 L POC ABG pCO2 POC ABG pO2 ABG pO2 90.9 H ABG HCO3 26.5 H ABG O2 Saturation ABG Base Excess -2.7 L ABG Hemoglobin 12.3 L ABG Oxyhemoglobin ABG Sodium ABG Potassium ABG Chloride ABG Glucose Oxyhemoglobin 93.9 L Carboxyhemoglobin Sodium Potassium Chloride Carbon Dioxide BUN Creatinine Glucose POC Glucose 190 H 203 H Hemoglobin A1c Lactic Acid Calcium Phosphorus Magnesium Ferritin Total Bilirubin AST ALT Lactate Dehydrogenase C-Reactive Protein Albumin Triglycerides Arterial Blood Glucose Arterial Blood Ionized Calcium Urine Creatinine Coronavirus (PCR) 02/01/21 02/01/21 02/01/21 05:15 06:22 10:20 WBC RBC Hgb Hct MCV MCH MCHC RDW Lymph % (Auto) Lymph # (Auto) Seg Neutrophils % Seg Neuts % (Manual) Lymphocytes % (Manual) Seg Neutrophils # Man Lymphocytes # (Manual) D-Dimer ABG pH 6.920 L* 7.116 L* POC ABG pCO2 POC ABG pO2 ABG pO2 102.9 H 113.1 H ABG HCO3 28.2 H ABG O2 Saturation 92.9 L ABG Base Excess -6.9 L -5.8 L ABG Hemoglobin 11.6 L 9.5 L ABG Oxyhemoglobin ABG Sodium ABG Potassium ABG Chloride ABG Glucose Oxyhemoglobin 90.5 L 94.6 L Carboxyhemoglobin Sodium Potassium Chloride Carbon Dioxide BUN Creatinine Glucose POC Glucose 221 H Hemoglobin A1c Lactic Acid Calcium Phosphorus Magnesium Ferritin Total Bilirubin AST ALT Lactate Dehydrogenase C-Reactive Protein Albumin Triglycerides Arterial Blood Glucose Arterial Blood Ionized Calcium Urine Creatinine Coronavirus (PCR) 02/01/21 02/01/21 02/01/21 11:12 12:35 16:00 WBC RBC Hgb Hct MCV MCH MCHC RDW Lymph % (Auto) Lymph # (Auto) Seg Neutrophils % Seg Neuts % (Manual) Lymphocytes % (Manual) Seg Neutrophils # Man Lymphocytes # (Manual) D-Dimer ABG pH 7.155 L* POC ABG pCO2 POC ABG pO2 ABG pO2 94.6 H ABG HCO3 ABG O2 Saturation ABG Base Excess -6.5 L ABG Hemoglobin 13.1 L ABG Oxyhemoglobin ABG Sodium ABG Potassium ABG Chloride ABG Glucose Oxyhemoglobin 93.7 L Carboxyhemoglobin Sodium 155 H Potassium 5.1 H Chloride 120.5 H Carbon Dioxide BUN 90 H Creatinine 6.1 H D Glucose 238 H POC Glucose 207 H Hemoglobin A1c Lactic Acid Calcium 7.4 L Phosphorus Magnesium Ferritin Total Bilirubin AST ALT Lactate Dehydrogenase C-Reactive Protein Albumin Triglycerides Arterial Blood Glucose Arterial Blood Ionized Calcium Urine Creatinine Coronavirus (PCR) 02/01/21 02/01/21 02/02/21 17:10 23:47 04:04 WBC RBC 3.02 L Hgb 9.8 L Hct 30.7 L MCV 102 H MCH MCHC RDW 15.6 H Lymph % (Auto) 4.2 L Lymph # (Auto) 0.3 L Seg Neutrophils % Seg Neuts % (Manual) Lymphocytes % (Manual) Seg Neutrophils # Man Lymphocytes # (Manual) D-Dimer ABG pH POC ABG pCO2 POC ABG pO2 ABG pO2 ABG HCO3 ABG O2 Saturation ABG Base Excess ABG Hemoglobin ABG Oxyhemoglobin ABG Sodium ABG Potassium ABG Chloride ABG Glucose Oxyhemoglobin Carboxyhemoglobin Sodium Potassium Chloride Carbon Dioxide BUN Creatinine Glucose POC Glucose 238 H 235 H Hemoglobin A1c Lactic Acid Calcium Phosphorus Magnesium Ferritin Total Bilirubin AST ALT Lactate Dehydrogenase C-Reactive Protein Albumin Triglycerides Arterial Blood Glucose Arterial Blood Ionized Calcium Urine Creatinine Coronavirus (PCR) 02/02/21 02/02/21 02/02/21 05:18 05:35 11:28 WBC RBC Hgb Hct MCV MCH MCHC RDW Lymph % (Auto) Lymph # (Auto) Seg Neutrophils % Seg Neuts % (Manual) Lymphocytes % (Manual) Seg Neutrophils # Man Lymphocytes # (Manual) D-Dimer ABG pH 7.195 L* POC ABG pCO2 POC ABG pO2 ABG pO2 72.5 L ABG HCO3 ABG O2 Saturation 91.2 L ABG Base Excess -5.3 L ABG Hemoglobin 6.0 L ABG Oxyhemoglobin ABG Sodium ABG Potassium ABG Chloride ABG Glucose Oxyhemoglobin 89.1 L Carboxyhemoglobin Sodium Potassium Chloride 110.4 H Carbon Dioxide BUN 92 H Creatinine Glucose POC Glucose 239 H Hemoglobin A1c Lactic Acid Calcium Phosphorus Magnesium Ferritin Total Bilirubin AST ALT Lactate Dehydrogenase C-Reactive Protein Albumin Triglycerides Arterial Blood Glucose Arterial Blood Ionized Calcium Urine Creatinine Coronavirus (PCR) 02/02/21 02/02/21 02/02/21 11:53 16:00 18:04 WBC RBC Hgb Hct MCV MCH MCHC RDW Lymph % (Auto) Lymph # (Auto) Seg Neutrophils % Seg Neuts % (Manual) Lymphocytes % (Manual) Seg Neutrophils # Man Lymphocytes # (Manual) D-Dimer ABG pH POC ABG pCO2 POC ABG pO2 ABG pO2 ABG HCO3 ABG O2 Saturation ABG Base Excess ABG Hemoglobin ABG Oxyhemoglobin ABG Sodium ABG Potassium ABG Chloride ABG Glucose Oxyhemoglobin Carboxyhemoglobin Sodium Potassium Chloride Carbon Dioxide BUN Creatinine Glucose POC Glucose 248 H 199 H Hemoglobin A1c 6.3 H Lactic Acid Calcium Phosphorus Magnesium Ferritin Total Bilirubin AST ALT Lactate Dehydrogenase C-Reactive Protein Albumin Triglycerides Arterial Blood Glucose Arterial Blood Ionized Calcium Urine Creatinine Coronavirus (PCR) 02/02/21 02/03/21 02/03/21 23:31 03:12 04:10 WBC RBC 3.06 L Hgb 9.7 L Hct 30.4 L MCV 99 H MCH MCHC RDW 15.3 H Lymph % (Auto) 6.1 L Lymph # (Auto) 0.5 L Seg Neutrophils % 86.1 H Seg Neuts % (Manual) Lymphocytes % (Manual) Seg Neutrophils # Man Lymphocytes # (Manual) D-Dimer ABG pH 7.199 L POC ABG pCO2 48.3 H POC ABG pO2 68.3 L ABG pO2 ABG HCO3 ABG O2 Saturation ABG Base Excess ABG Hemoglobin 10.2 L ABG Oxyhemoglobin 89.2 L ABG Sodium 155.0 H ABG Potassium 4.6 H ABG Chloride 121.0 H ABG Glucose 166 H Oxyhemoglobin Carboxyhemoglobin 0.3 L Sodium Potassium Chloride Carbon Dioxide BUN Creatinine Glucose POC Glucose 200 H Hemoglobin A1c Lactic Acid Calcium Phosphorus Magnesium Ferritin Total Bilirubin AST ALT Lactate Dehydrogenase C-Reactive Protein Albumin Triglycerides Arterial Blood Glucose 166 H Arterial Blood Ionized Calcium 4.1 L Urine Creatinine Coronavirus (PCR) 02/03/21 02/03/21 04:10 05:34 WBC RBC Hgb Hct MCV MCH MCHC RDW Lymph % (Auto) Lymph # (Auto) Seg Neutrophils % Seg Neuts % (Manual) Lymphocytes % (Manual) Seg Neutrophils # Man Lymphocytes # (Manual) D-Dimer ABG pH POC ABG pCO2 POC ABG pO2 ABG pO2 ABG HCO3 ABG O2 Saturation ABG Base Excess ABG Hemoglobin ABG Oxyhemoglobin ABG Sodium ABG Potassium ABG Chloride ABG Glucose Oxyhemoglobin Carboxyhemoglobin Sodium 154 H D Potassium Chloride 116.7 H Carbon Dioxide 20 L BUN 130 H Creatinine 9.2 H D Glucose 160 H POC Glucose 130 H Hemoglobin A1c Lactic Acid Calcium 6.7 L Phosphorus 8.60 H Magnesium Ferritin Total Bilirubin AST ALT Lactate Dehydrogenase C-Reactive Protein Albumin Triglycerides Arterial Blood Glucose Arterial Blood Ionized Calcium Urine Creatinine Coronavirus (PCR)
[2021-02-03 15:15] LABS: Hepatitis B Surface Antigen Non-Reactive (Negative); Hepatitis C Virus Antibody Non-Reactive (NonReactive)
[2021-02-03] MEDS: NORepinephrine/NS 4 MG-250 ML 4 MG/250 ML BAG IV SCH ×2 (15:23→21:39)
--- NOTE | 2021-02-03 17:30 | Progress Note ---
Assessment and Plan Assessment and plan: Sepsis -Patient is febrile, COVID-19 pneumonia, acute kidney injury, leukocytosis -Antibiotic therapy -ID consulted, appreciate recommendations -01/22 tracheal aspirate with normal respiratory dillon -01/22 blood cultures x2 with no growth to date -01/30 blood culture x2 with no growth after 48 hours -01/30 tracheal aspirate with few gram-positive cocci COVID-19 PNA -COVID-19 PCR positive -Pneumonia on CXR -Antibiotic therapy -Infectious disease consulted, appreciate recommendations -Contact/droplet precautions -Steroid therapy, s/p remdesivir Acute hypoxic respiratory failure -CCM consulted, appreciate recommendation -Mechanical ventilation, wean as tolerated -VAP bundle Acute kidney injury -Nephrology consulted, appreciate recommendation -HD per nephrology -Trend BMP -S/p MIVF Metabolic acidosis -S/p bicarb drip -S/p 2 amp of bicarb IVP -Trend BMP Elevated D-dimer -Trend D-dimer -Bilateral lower extremity Doppler ultrasound negative for DVT/SVT -Therapeutic Lovenox Hyperchloremia -Electrolyte correction with hemodialysis -Trend BMP Diabetes mellitus -SSI -Long-acting insulin -Accu-Cheks every 6 while on tube feedings Hypertension -Hold home antihypertensive regimen for now -Blood pressure monitor per protocol DVT/GI prophylaxis: SCDs to bilateral lower extremities while in bed, heparin subcu, PPI Dispo: ICU The high probability of a clinically significant, sudden or life threatening deterioration of the [multi] system(s) required my full and direct attention, intervention and personal management. The aggregate critical care time was [32] minutes. This time is in addition to time spent performing reported procedures but includes the following: [x] Data Review and interpretation [x] Patient assessment and monitoring of vital signs [x] Documentation [x] Medication orders and management History Interval history: This is a 60-year-old male with diabetes mellitus, hypertension, hyperlipidemia, chronic renal insufficiency presents to the emergency department on 01/23 with shortness of breath, fevers chills, loss of smell and taste and body aches for the past 3 days via EMS. Per EMS patient's oxygen saturation on room air was 50% and after being placed on nonrebreather it increased 75%. Upon arrival to the emergency department patient was being bagged by EMS. In the emergency room patient was intubated due to severe hypoxia, increased work of breathing and lethargy. Patient was sedated on propofol and fentanyl. Patient presented with fever, tachycardia, tachypnea and acute hypoxic respiratory failure with PNA on CXR meeting Sepsis criteria. Lab work in the emergency department revealed hyponatremia, hypokalemia, hypochloremia, elevated CR/BUN and CXR showed bilateral pneumonia. Patient was admitted to the hospital service as a COVID-19 PUI with consults to infectious disease, nephrology and critical care medicine. Sepsis COVID-19 pneumonia Bilateral pneumonia Acute hypoxic respiratory failure Acute kidney injury, HD initiated 02/03 Hypernatremia Hyperchloremia Hyperkalemia Metabolic acidosis Hyperphosphatemia Diabetes mellitus Hypertension Hyperlipidemia Chronic renal insufficiency Elevated D-dimer 01/24/2021: Patient is intubated and sedated, patient is positive for COVID-19 infection. ID was consulted and put on dexamethasone and remdesivir. Patient has DEISI and nephrology is following. Creatinine stable, patient is urinating. Discussed with nephrology and he is okay with remdesivir. Pulmonary critical care is following for his vent setting. PEEP of 8 and FiO2 of 85%. Patient was alert and off sedatives. 01/25/2021; patient is intubated and on mechanical ventilation. Continue with treatment of Covid. Nephrology and ID is following. Pulmonary is following for vent management 01/26: Remains on mechanical ventilation and [facility] increased his PEEP. [facility] has ordered Precedex for sedation. Possibly need to prone this p.m. No acute events reported overnight. This morning his D-dimer is greater than 10,000 and we have started him on Lovenox 120 mg daily. Nutrition has been consulted for initiation of tube feedings. Patient remains sedated on propofol 40 and fentanyl for the time my examination this morning. 01/27: Continue Lovenox, remdesivir and empiric antibiotics. Patient had a T-max of 101 overnight. The time of examination patient is on CMV 500/18/14/0.61. K idney function slightly worsened. Sedated on fentanyl ground-level fall and Precedex. Nephrology has increased IV fluids to 100 ml/hr. Continue to trend BMP and CBC. Sedation vacation attempt by RN this AM. 01/28: Patient completed antibiotics today CCM will paralyze patient and increase sedation. PICC line ordered for possible vasopressor therapy need. Patient's D-dimer remains greater than 10,000 and he still has hyperchloremia. Patient's kidney function has improved today. May need to prone the patient if no improvement in oxygenation is noted in the next 24 hours. The time of my exam ination patient is sedated with propofol, fentanyl and Precedex and is on assist control 500/18/16/0.80 hypoxic on ABG on 60% FiO2. 01/29: Patient was started on Nimbex yesterday and his ABG this morning showed respiratory acidosis with hypercapnia and his respiratory rate was increased. We will obtain a repeat ABG this afternoon. This morning patient is hypernatremic, hyperkalemic and hyperchloremic. His potassium has been corrected with the management and will obtain repeat BMP tomorrow. His kidney functions have remained stable and we will await nephrology's input. No acute events reported overnight. This morning the time my examination patient sedated with propofol, Precedex and fentanyl and paralyzed with Nimbex. He is on assist control 500/24/16 0.80. 01/30: This morning patient is hypokalemic again and was given Kayexalate. Patient has hypernatremia and hyper chloremia and his renal function is slightly worse after receiving Lasix yesterday. His D-dimer remains greater than 10,000 and he is still on a paralytic. Patient is sedated on Precedex, fentanyl, propofol. Mechanical ventilation settings seven-point /61/28. [facility] has decided to continue paralytics for 48 more hours and will attempt proning the patient. Increased free water flushes 300 cc every 4 hours. Patient states has restarted his antibiotics cefepime and vancomycin and recultured. 01/31/21 Hyperkalemia Treated 02/01/21 Hyperkalemia Treated 02/02: Patient's kidney function continues to worsen and a stat BMP this morning shows BUN/creatinine 20/6.1 and he remains hypocalcemic and hypernatremic, hy pokalemic and hypochloremic. Patient received 2 g of calcium gluconate and Kayexalate and his repeat potassium was 4.3 this afternoon. He remains antibiotic therapy and steroids. Nephrology has placed the patient on bicarb drip given metabolic acidosis and has decided to hold off hemodialysis till t omorrow.The time my examination patient is sedated on fentanyl, Precedex and on assist control 500/20/12/0.70. s/p paralytic. 02/03: Today patient's ABG shows respiratory acidosis however it is improving, hypernatremia, hyperchloremia, metabolic acidosis on BMP, worsening kidney function BUN/creatinine 130/9.2 with hyperphosphatemia. Patient received a Vas- Cath to his right IJ for initiation of dialysis. At the time of my examination patient remains sedated on fentanyl, propofol and Precedex with vasopressor support with Levophed at 2. At the time of examination patient was on assist control 500/30/12/0.70. Hospitalist Physical - Constitutional Vitals: Temp Pulse Resp BP Pulse Ox 98.4 F 105 H 25 H 119/61 92 02/03/21 16:26 02/03/21 16:26 02/03/21 16:26 02/03/21 16:26 02/03/21 16:26 General appearance: Present: no acute distress, well-nourished, other (Sedated on mechanical ventilation) - EENT Eyes: Present: PERRL ENT: poor dentition - Neck Neck: Present: normal ROM - Respiratory Respiratory effort: normal Respiratory: bilateral: diminished - Cardiovascular Rhythm: regular Heart Sounds: Present: S1 & S2. Absent: systolic murmur, diastolic murmur - Extremities Extremities: no ischemia, pulses intact, pulses symmetrical, normal temperature, normal color Extremity abnormal: edema - Peripheral Assessment Bilateral Generalized Edema Degree: 1+ Capillary Refill: < 3 seconds Skin Temperature: Warm Peripheral Pulses: within normal limits - Abdominal General gastrointestinal: soft, non-tender, non-distended - Integumentary Integumentary: Present: warm, dry - Psychiatric Psychiatric: other (Sedated) - Neurologic Neurologic: other (Sedated) - Allied Health Allied health notes reviewed: nursing, RT, social work HEART Score - HEART Score Risk factors: 1-2 risk factors Troponin: < normal limit - Critical Actions Critical Actions: 0-3 pts:0.9-1.7%risk of adverse cardiac event.Candidate for discharge Results - Labs CBC & Chem 7: 02/03/21 04:10 02/03/21 04:10 Labs: Laboratory Last Values WBC 7.8 K/mm3 (4.5-11.0) 02/03/21 04:10 RBC 3.06 M/mm3 (3.65-5.03) L 02/03/21 04:10 Hgb 9.7 gm/dl (11.8-15.2) L 02/03/21 04:10 Hct 30.4 % (35.5-45.6) L 02/03/21 04:10 MCV 99 fl (84-94) H 02/03/21 04:10 MCH 32 pg (28-32) 02/03/21 04:10 MCHC 32 % (32-34) 02/03/21 04:10 RDW 15.3 % (13.2-15.2) H 02/03/21 04:10 Plt Count 208 K/mm3 (140-440) 02/03/21 04:10 Lymph % (Auto) 6.1 % (13.4-35.0) L 02/03/21 04:10 [place] % (Auto) 4.6 % (0.0-7.3) 02/03/21 04:10 Eos % (Auto) 1.9 % (0.0-4.3) 02/03/21 04:10 Baso % (Auto) 1.3 % (0.0-1.8) 02/03/21 04:10 Lymph # (Auto) 0.5 K/mm3 (1.2-5.4) L 02/03/21 04:10 [place] # (Auto) 0.4 K/mm3 (0.0-0.8) 02/03/21 04:10 Eos # (Auto) 0.1 K/mm3 (0.0-0.4) 02/03/21 04:10 Baso # (Auto) 0.1 K/mm3 (0.0-0.1) 02/03/21 04:10 Add Manual Diff Complete 01/30/21 05:00 Total Counted 100 01/30/21 05:00 Seg Neutrophils % 86.1 % (40.0-70.0) H 02/03/21 04:10 Seg Neuts % (Manual) 97.0 % (40.0-70.0) H 01/30/21 05:00 Band Neutrophils % 1.0 % 01/27/21 05:29 Lymphocytes % (Manual) 1.0 % (13.4-35.0) L 01/30/21 05:00 Reactive Lymphs % (Man) 1.0 % 01/27/21 05:29 Monocytes % (Manual) 2.0 % (0.0-7.3) 01/30/21 05:00 Eosinophils % (Manual) 2.0 % (0.0-4.3) 01/24/21 05:05 Nucleated RBC % Not Reportable 01/30/21 05:00 Seg Neutrophils # 6.7 K/mm3 (1.8-7.7) 02/03/21 04:10 Seg Neutrophils # Man 8.6 K/mm3 (1.8-7.7) H 01/30/21 05:00 Band Neutrophils # 0.0 K/mm3 01/30/21 05:00 Lymphocytes # (Manual) 0.1 K/mm3 (1.2-5.4) L 01/30/21 05:00 Abs React Lymphs (Man) 0.0 K/mm3 01/30/21 05:00 Monocytes # (Manual) 0.2 K/mm3 (0.0-0.8) 01/30/21 05:00 Eosinophils # (Manual) 0.0 K/mm3 (0.0-0.4) 01/30/21 05:00 Basophils # (Manual) 0.0 K/mm3 (0.0-0.1) 01/30/21 05:00 Metamyelocytes # 0.0 K/mm3 01/30/21 05:00 Myelocytes # 0.0 K/mm3 01/30/21 05:00 Promyelocytes # 0.0 K/mm3 01/30/21 05:00 Blast Cells # 0.0 K/mm3 01/30/21 05:00 WBC Morphology Not Reportable 01/30/21 05:00 Hypersegmented Neuts Not Reportable 01/30/21 05:00 Hyposegmented Neuts Not Reportable 01/30/21 05:00 Hypogranular Neuts Not Reportable 01/30/21 05:00 Smudge Cells Not Reportable 01/30/21 05:00 Toxic Granulation Not Reportable 01/30/21 05:00 Toxic Vacuolation Not Reportable 01/30/21 05:00 Dohle Bodies Not Reportable 01/30/21 05:00 Pelger-Huet Anomaly Not Reportable 01/30/21 05:00 Fátima Rods Not Reportable 01/30/21 05:00 Platelet Estimate Consistent w auto 01/30/21 05:00 Clumped Platelets Not Reportable 01/30/21 05:00 Plt Clumps, EDTA Not Reportable 01/30/21 05:00 Large Platelets Not Reportable 01/30/21 05:00 Giant Platelets Not Reportable 01/30/21 05:00 Platelet Satelliting Not Reportable 01/30/21 05:00 Plt Morphology Comment Not Reportable 01/30/21 05:00 RBC Morphology Not Reportable 01/30/21 05:00 Dimorphic RBCs Not Reportable 01/30/21 05:00 Polychromasia Not Reportable 01/30/21 05:00 Hypochromasia Not Reportable 01/30/21 05:00 Poikilocytosis Not Reportable 01/30/21 05:00 Anisocytosis Not Reportable 01/30/21 05:00 Microcytosis Not Reportable 01/30/21 05:00 Macrocytosis Not Reportable 01/30/21 05:00 Spherocytes Not Reportable 01/30/21 05:00 Pappenheimer Bodies Not Reportable 01/30/21 05:00 Sickle Cells Not Reportable 01/30/21 05:00 Target Cells Not Reportable 01/30/21 05:00 Tear Drop Cells Not Reportable 01/30/21 05:00 Ovalocytes Not Reportable 01/30/21 05:00 Helmet Cells Not Reportable 01/30/21 05:00 [place]xtell Bodies Not Reportable 01/30/21 05:00 [place] Rings Not Reportable 01/30/21 05:00 [place] Cells Not Reportable 01/30/21 05:00 Bite Cells Not Reportable 01/30/21 05:00 Crenated Cell Not Reportable 01/30/21 05:00 Elliptocytes Not Reportable 01/30/21 05:00 Acanthocytes (Spur) Not Reportable 01/30/21 05:00 Rouleaux Not Reportable 01/30/21 05:00 Hemoglobin C Crystals Not Reportable 01/30/21 05:00 Schistocytes Not Reportable 01/30/21 05:00 Malaria parasites Not Reportable 01/30/21 05:00 Aqu[place] Bodies Not Reportable 01/30/21 05:00 Hem Pathologist Commnt No 01/30/21 05:00 D-Dimer > 16734 ng/mlDDU (0-234) H 01/30/21 04:00 ABG pH 7.199 (7.320-7.450) L 02/03/21 03:12 POC ABG pCO2 48.3 mmHg (32.0-48.0) H 02/03/21 03:12 ABG pCO2 59.2 mm Hg 02/02/21 05:35 POC ABG pO2 68.3 mmHg (83-108) L 02/03/21 03:12 ABG pO2 72.5 mm Hg (80.0-90.0) L 02/02/21 05:35 POC ABG HCO3 18.4 02/03/21 03:12 ABG HCO3 22.3 mmol/L (20.0-26.0) 02/02/21 05:35 ABG O2 Saturation 89.6 (0-100) 02/03/21 03:12 ABG O2 Content 7.7 (0.0-44) 02/02/21 05:35 POC ABG Base Excess -9.3 02/03/21 03:12 ABG Base Excess -5.3 mmol/L (-2.0-3.0) L 02/02/21 05:35 ABG Hemoglobin 10.2 (12.0-17.5) L 02/03/21 03:12 ABG Oxyhemoglobin 89.2 (94-98) L 02/03/21 03:12 ABG Carboxyhemoglobin 1.7 % (0.0-5.0) 02/02/21 05:35 ABG Methemoglobin 0.1 (0.0-1.5) 02/03/21 03:12 ABG Sodium 155.0 mmol/L (136.0-145.0) H 02/03/21 03:12 ABG Potassium 4.6 mmol/L (3.40-4.50) H 02/03/21 03:12 ABG Chloride 121.0 mmol/L (98-107) H 02/03/21 03:12 ABG Glucose 166 mg/dL (65-95) H 02/03/21 03:12 Oxyhemoglobin 89.1 % (95.0-99.0) L 02/02/21 05:35 Carboxyhemoglobin 0.3 (0.5-1.5) L 02/03/21 03:12 FiO2 70 % 02/02/21 05:35 FiO2 % 70.0 02/03/21 03:12 Sodium 154 mmol/L (137-145) H D 02/03/21 04:10 Potassium 4.7 mmol/L (3.6-5.0) 02/03/21 04:10 Chloride 116.7 mmol/L (98-107) H 02/03/21 04:10 Carbon Dioxide 20 mmol/L (22-30) L 02/03/21 04:10 Anion Gap 22 mmol/L 02/03/21 04:10 BUN 130 mg/dL (9-20) H 02/03/21 04:10 Creatinine 9.2 mg/dL (0.8-1.3) H D 02/03/21 04:10 Estimated GFR 7 ml/min 02/03/21 04:10 BUN/Creatinine Ratio 14 % 02/03/21 04:10 Glucose 160 mg/dL (75-100) H 02/03/21 04:10 POC Glucose 154 mg/dL (70-105) H 02/03/21 11:51 Hemoglobin A1c 6.3 % (4-6) H 02/02/21 16:00 Lactic Acid 1.90 mmol/L (0.7-2.0) 01/24/21 14:38 Calcium 6.7 mg/dL (8.4-10.2) L 02/03/21 04:10 Phosphorus 8.60 mg/dL (2.5-4.5) H 02/03/21 04:10 Magnesium 2.60 mg/dL (1.7-2.3) H 01/30/21 06:00 Ferritin 763.9 ng/mL (30.0-300.0) H 01/30/21 04:00 Total Bilirubin 1.50 mg/dL (0.1-1.2) H 01/26/21 05:47 AST 37 units/L (5-40) 01/26/21 05:47 ALT 29 units/L (7-56) 01/26/21 05:47 Alkaline Phosphatase 70 units/L (35-129) 01/26/21 05:47 Lactate Dehydrogenase 424 units/L (91-180) H 01/30/21 04:00 C-Reactive Protein 23.90 mg/dL (0.00-1.30) H 01/30/21 04:00 Total Protein 7.2 g/dL (6.3-8.2) 01/26/21 05:47 Albumin 2.2 g/dL (3.9-5) L 01/26/21 05:47 Albumin/Globulin Ratio 0.4 % 01/26/21 05:47 Triglycerides 293 mg/dL (2-149) H 01/30/21 06:00 Procalcitonin 0.92 ng/mL (<0.15) 01/22/21 22:57 Arterial Blood Glucose 166 mg/dL (65-95) H 02/03/21 03:12 Arterial Blood Ionized Calcium 4.1 mg/dL (4.6-5.3) L 02/03/21 03:12 Urine Color [place] (Yellow) 01/22/21 22:39 Urine Turbidity Cloudy (Clear) 01/22/21 22:39 Urine pH 5.0 (5.0-7.0) 01/22/21 22:39 Ur Specific [place] 1.017 (1.003-1.030) 01/22/21 22:39 Urine Protein 100 mg/dl mg/dL (Negative) 01/22/21 22:39 Urine Glucose (UA) Neg mg/dL (Negative) 01/22/21 22:39 Urine Ketones Neg mg/dL (Negative) 01/22/21 22:39 Urine Blood Mod (Negative) 01/22/21 22:39 Urine Nitrite Neg (Negative) 01/22/21 22:39 Urine Bilirubin Neg (Negative) 01/22/21 22:39 Urine Urobilinogen 2.0 mg/dL (<2.0) 01/22/21 22:39 Ur Leukocyte Esterase Mod (Negative) 01/22/21 22:39 Urine WBC (Auto) < 1.0 /HPF (0.0-6.0) 01/22/21 22:39 Urine RBC (Auto) < 1.0 /HPF (0.0-6.0) 01/22/21 22:39 U Epithel Cells (Auto) < 1.0 /HPF (0-13.0) 01/22/21 22:39 Urine Osmolality 416 Mosm/kg 01/30/21 12:15 Urine Total Volume 2300 ml 01/30/21 12:00 Urine Creatinine 53.0 mg/dL (0.1-20.0) H 01/30/21 12:00 Ur Creatinine 24 Hour 1.2 (0.8-2.8) 01/30/21 12:00 Urine Sodium 28 mmol/L 01/22/21 22:39 Random Vancomycin 23.4 ug/mL (0-40.0) 02/02/21 04:04 Coronavirus (PCR) Positive (Negative) A 01/23/21 08:41 Hepatitis A IgM Ab Non-reactive (NonReactive) 02/03/21 Unknown Hep Bs Antigen Non-reactive (Negative) 02/03/21 Unknown Hep B Core IgM Ab Non-reactive (NonReactive) 02/03/21 Unknown Hepatitis C Antibody Non-reactive (NonReactive) 02/03/21 Unknown Microbiology: Microbiology 01/30/21 15:29 Peripheral/Venous Blood Culture - Preliminary NO GROWTH AFTER 4 DAYS 01/30/21 15:29 Peripheral/Venous Blood Culture - Preliminary NO GROWTH AFTER 4 DAYS Black/IV: Voiding Method Indwelling Catheter Active Medications - Current Medications Current Medications: Generic Name Dose Route Start Last Admin Trade Name Freq PRN Reason Stop Dose Admin Acetaminophen 650 mg 01/23/21 02:25 Acetaminophen 650 Mg Rect Supp HI Q4H PRN Pain, Mild (1-3) Acetaminophen 650 mg 01/24/21 12:58 01/29/21 18:28 Acetaminophen 325 Mg/10.15 Ml Oral Liqd Unit Dose FEEDTUBE 650 mg Q6H PRN Administration Pain, Mild (1-3) Lipase/Protease/Amylase 1 each 01/26/21 14:25 Lipase 10,500/Protease 25,000/Amylase 43,750 (Units) Dr Claudio FEEDTUBE PRN PRN For Clogged Feeding Tube Dextrose 50 ml 01/27/21 07:24 Dextrose 50% In Water (25gm) 50 Ml Syringe IV Q30MIN PRN Hypoglycemia Protocol Enoxaparin Sodium 120 mg 01/26/21 11:00 02/03/21 09:15 Enoxaparin 120 Mg/0.8 Ml Inj SUB-Q 120 mg Q24HR CECE Administration Famotidine 20 mg 01/24/21 10:00 02/03/21 09:16 Famotidine 20 Mg/2 Ml Inj IV 20 mg DAILY CECE Administration Fentanyl 50 mcg 01/22/21 22:39 Fentanyl 100 Mcg/2 Ml Inj IV Q10MIN PRN ANALGESIA Hydrophilic Ointment 1 applic 01/22/21 22:39 Lip Therapy Vaseline TP Q2HR PRN Dry Lips Fentanyl Citrate 2,000 mcg in 100 mls @ 6.124 mls/hr 01/22/21 23:00 02/03/21 13:13 Fentanyl Drip Premix IV 4 mcg/kg/hr TITR CECE 24.494 mls/hr Administration Protocol 1 MCG/KG/HR Propofol 1,000 mg in 100 mls @ 3.674 mls/hr 01/22/21 23:45 02/03/21 15:22 Diprivan 10 Mg/Ml IV 40 mcg/kg/min TITR CECE 29.393 mls/hr Administration Protocol 5 MCG/KG/MIN Norepinephrine 4 mg in 250 mls @ 7.5 mls/hr 01/28/21 14:00 02/03/21 16:30 Levophed Drip 4 Mg/Ns 250 Ml IV 4 mcg/min TITR CECE 15 mls/hr Titration Protocol 2 MCG/MIN Dexmedetomidine HCl 1,000 mcg/ 260 mls @ 6.368 mls/hr 01/30/21 20:00 02/03/21 11:59 Sodium Chloride IV 1.4 mcg/kg/hr TITRATE CECE 44.579 mls/hr Administration Protocol 0.2 MCG/KG/HR Cefepime HCl 2 gm in 100 mls @ 200 mls/hr 02/02/21 22:00 02/02/21 22:41 Cefepime/Ns 2 Gm/100 Ml IV 02/05/21 23:59 200 mls/hr QHS CECE Administration Multi-Ingred Cream/Lotion/Oil/Oint 1 applic 01/22/21 22:39 02/01/21 09:33 Mineral Oil/Petrolatum, White Ophth Oint 3.5 Gm OU 1 applic Q4HR PRN Administration Dry Eye(s) Ondansetron HCl 4 mg 01/23/21 02:17 Ondansetron 4 Mg/2 Ml Inj IV Q8H PRN Nausea And Vomiting Simple Syrup 15 ml 01/26/21 14:25 Simple Syrup 15 Ml FEEDTUBE PRN PRN Hypoglycemia Simple Syrup 30 ml 01/26/21 14:25 Simple Syrup 15 Ml FEEDTUBE PRN PRN Hypoglycemia Sodium Bicarbonate 325 mg 01/26/21 14:25 Sodium Bicarbonate 325 Mg Tab FEEDTUBE PRN PRN For Clogged Feeding Tube Nutrition/Malnutrition Assess - Dietary Evaluation Nutrition/Malnutrition Findings: Nutrition Notes Start: 01/26/21 13:59 Freq: Status: Active Protocol: Document 02/02/21 12:09 CW (Rec: 02/02/21 12:19 CW [id number]) Nutrition Notes Initial or Follow up Reassessment Current Diagnosis Acute Kidney Injury,Diabetes, Sepsis,Hypertension, Respiratory Failure, Hyperlipidemia Other Pertinent Diagnosis COVID-19 (+), bilat pneu Current Diet TF - Nepro at 30 ml/hr Labs/Tests Na 155 K 5.1 BG 238 BUN 90 Cr 6.1 Pertinent Medications propofol at 33.067 ml/hr decadron Height 5 ft 8 in Weight 131.7 kg [place] Body Weight (kg) 70.00 BMI 44.1 Weight change and time frame weight gain likely d/t need for HD Weight Status Morbidly Obese Subjective/Other Information F/U for propofol, proning, vent status and weight. MD noted that pt likely to start HD soon. Weight gain likely r/ t fluid overload. Pt remains on vent. TF running at 50 ml/ hr d/t proning procedures. TF well tolerated at this time. Per RN TF has been flushed at 300 ml q4h x 48 hr. Burn Absent Trauma Absent GI Symptoms None Difficulty In Swallowing Skin Integrity/Comment Intact Current % PO Negligible Minimum of two criteria No physical signs of malnutrition #1 Nutrition Diagnosis Inadequate oral intake Diagnosis Progress(for reassessment Continues documentation) Is patient on ventilator? Yes Is Patient Ambulatory and/or Out of Bed No REE-([facility]-confined to bed) 2514.168 Kcal/Kg value to use for calculation 14 Approximate Energy Requirements Using 1844 kcal/Kg Calculation Used for Recommendations Kcal/kg Additional Notes Pro needs 0.8-1.2g/kg adjBW: 77-115g/day Fluid needs per MD Nutrition Intervention Change Diet Order: Continue TF rate Increase flush to 300 ml q4h Nutrition Support: Continuous TF: Nepro at 30ml/ hr with 300ml water flush q4h for hypernatremia, Once resolve resume flush of 150 ml q4h. (Propofol providing 873 kcal) When proning: Proned position: Nepro at 20ml /hr x 12 hr with 100ml water flush q4h. Supine position: Nepro at 50ml /hr x 12hr with 300ml water flush q4h for hypernatremia, Once resolve resume flush of 200 ml q4h. Kcal 1,296 Protein (gm) 58 Fluid (mL) 523 Goal #1 TF tolerance Goal #2 TF to meet at least 75% energy and pro needs Anticipated Discharge Needs: unable to determine at this time Follow-Up By: 02/05/21 Additional Comments F/U proning, propofol, POC (HD ), vent status
[2021-02-03] MEDS: CEFEPIME/NS 2 GM/100 ML 2 GM/100 ML BAG IV SCH (21:16)
[2021-02-03] MEDS: ACETAMINOPHEN 325 MG/10.15 ML ORAL LIQD UNIT DOSE FEEDTUBE PRN (23:37)
[2021-02-04] MEDS: fentaNYL DRIP Premix 2,000 MCG/100 ML BAG IV SCH ×6 (01:45→21:34)
[2021-02-04 05:09] LABS: Hematocrit 26.9 % (35.5-45.6); Hemoglobin 9.1 gm/dl (11.8-15.2); Mean Corpuscular HGB Conc 34 % (32-34); Mean Corpuscular Volume 98 fl (84-94); Platelet Count 177 K/mm3 (140-440); Red Blood Count 2.75 M/mm3 (3.65-5.03); Red Cell Distribution Width 14.8 % (13.2-15.2)
[2021-02-04 05:13] LABS: Basophils % (Auto) 0.6 % (0.0-1.8); Eosinophils % (Auto) 1.9 % (0.0-4.3); Lymphocytes % (Auto) 6.8 % (13.4-35.0); Monocytes % (Auto) 3.5 % (0.0-7.3)
[2021-02-04 05:14] LABS: Eosinophils # (Auto) 0.1 K/mm3 (0.0-0.4); Lymphocytes # (Auto) 0.5 K/mm3 (1.2-5.4); Monocytes # (Auto) 0.3 K/mm3 (0.0-0.8)
[2021-02-04] MEDS: dexmedeTOMIDine 1,000 MCG in SODIUM CHLORIDE 0.9% 250ML 250 ML IV SCH ×4 (05:19→23:45)
[2021-02-04 05:29] LABS: Calcium 6.8 mg/dL (8.4-10.2)
[2021-02-04] MEDS: FAMOTIDINE 20 MG/2 ML INJ IV SCH (09:37)
[2021-02-04] MEDS: NORepinephrine/NS 4 MG-250 ML 4 MG/250 ML BAG IV SCH ×2 (09:38→15:30)
[2021-02-04] MEDS: ENOXAPARIN 120 MG/0.8 ML INJ SUB-Q SCH (09:38)
--- NOTE | 2021-02-04 11:50 | Progress Note ---
Assessment and Plan 60 y/o male with ARDS secondary most likely to COVID 19 pneumonia. 02/04/21: HD again today per renal notes. Likely will need daily HD. New fevers. Will draw blood and urine cultures if able to still make urine.. Repeat CXR. May need to check dopplers if all of those studies are negative. Wean FIO2 as tolerated. Unable to tolerate proning. Guarded to poor prognosis. 02/03/21: HD today per renal. Wean FiO2 as tolerated. No further proning as patient cannot tolerate it, however with volume removal, may consider in the future. Use pressors to keep MAPs 65 and greater for HD purporses so volume can be removed. (IJ was wide open (filled with blood)) with patient sitting up at 45 degrees. Guarded prognosis. 02/02/21: After renal speaks with family, will place vascath today. Agree with bicarb drip but will order some pushes now to help with pH. Overall prognosis is very very guarded to poor now that patient is COVID positive and requiring renal replacement therapy. Mortality is very high in these patients. Continue steroid therapy. Unable to tolerate proning. 01/30/21: Will plan for proning later today. Goal will be at least 12hrs but long is okay. Speaking with pharmacy to see if we can get paralytic for a longer period of time. Regardless will prone. Continue heavy sedation. BP stable. Continue steroids. Very very guarded prognosis. 01/29/21: will increase tidal volume and/or increase respiratory rate. Repeat ABG this afternoon. Continue paralytic and adequate sedation. Continue steroid and remdesivir, follow up any renal recs. Prognosis remains guarded. Wean Fio2 for sats >88% 01/28/21: Increased PEEP to 16. Will paralyze patient today and increase sedation. Ordering picc line for possible vasopressor therapy needs. Continue BID steroids. Renal function is slightly better today with fluids but could be making oxygenation worse. Not able to diurese. Still making urine. Continue Remdesivir. Watch for fever curve. If not improvement in the next 24 hours with paralyzing, will prone tomorrow morning. 01/27/21: Continue PEEP at 14. No weaning until FiO2 is at or below 40-45%. Continue anticoagulation. Getting Remdesivir now. Continue BID steroids. Renal has increased the fluids. Monitor urine output and renal function. Overall prognosis is very very guarded, especially if renal status worsens. 01/26/21: Increase PEEP to 14. Will add Precedex therapy. If patient does not respond to increases in PEEP may need to prone. Will place patient on lovenox and will feed patient. Remdesivir coming. Continue BID steroids. Prognosis is guarded. 01/25/21: Hold on proning today. Continue BID steroids. ABG this AM was adequate. Pending abg tomorrow, may increase PEEP if not able to wean FiO2 any further. Per charting Remdesivir to arrive tomorrow. Guarded prognosis. 01/24/21: Continue BID steroids. No abg done this am but able to wean FiO2. Will obtain ABG in the am. Hold on proning for right now. Renal following, would like to diurese but they are given fluids for deisi. Agree with ID assessment and note. Guarded prognosis. 1. Increase steroids to BID given size 2. Check with ID to see if he is a candidate for remdesivir or any other exp eriemental therapy 3. Hold on proning for right now 4. Renal consulted and giving IVF's currently Guarded prognosis. CCT 31 minutes. Subjective Date of service: 02/04/21 Principal diagnosis: DEISI Interval history: Patient now spiking temps, despite tolerating HD with no issues. Line placed yesterday with no issues as well. BP stable. Currently on Levophed at 6 Objective Vital Signs - 12hr 02/04/21 02/04/21 02/04/21 00:00 00:15 00:27 Temperature 100.6 F H Pulse Rate 99 H 99 H 96 H Pulse Rate [ 100 H From Monitor] Respiratory 28 H 30 H Rate Blood Pressure 116/54 105/52 105/51 O2 Sat by Pulse 91 91 91 Oximetry 02/04/21 02/04/21 02/04/21 00:30 00:45 01:00 Temperature Pulse Rate 96 H 92 H 91 H Pulse Rate [ From Monitor] Respiratory 31 H 32 H 30 H Rate Blood Pressure 105/51 105/49 108/48 O2 Sat by Pulse 91 92 91 Oximetry 02/04/21 02/04/21 02/04/21 01:15 01:30 01:45 Temperature Pulse Rate 89 90 88 Pulse Rate [ From Monitor] Respiratory 30 H 31 H 32 H Rate Blood Pressure 108/48 101/52 111/51 O2 Sat by Pulse 91 91 91 Oximetry 02/04/21 02/04/21 02/04/21 02:00 02:15 02:30 Temperature Pulse Rate 87 87 87 Pulse Rate [ From Monitor] Respiratory 28 H 27 H 25 H Rate Blood Pressure 106/47 112/49 107/50 O2 Sat by Pulse 92 92 92 Oximetry 02/04/21 02/04/21 02/04/21 02:45 03:00 03:15 Temperature Pulse Rate 88 88 89 Pulse Rate [ From Monitor] Respiratory 30 H 29 H 27 H Rate Blood Pressure 109/52 97/48 104/47 O2 Sat by Pulse 92 92 92 Oximetry 02/04/21 02/04/21 02/04/21 03:30 03:45 04:00 Temperature 100.9 F H Pulse Rate 90 89 89 Pulse Rate [ 90 From Monitor] Respiratory 30 H 31 H 31 H Rate Blood Pressure 107/47 106/47 99/48 O2 Sat by Pulse 92 92 92 Oximetry 02/04/21 02/04/21 02/04/21 04:15 04:22 04:30 Temperature Pulse Rate 89 90 90 Pulse Rate [ From Monitor] Respiratory 30 H 30 H Rate Blood Pressure 101/48 101/48 92/46 O2 Sat by Pulse 91 91 91 Oximetry 02/04/21 02/04/21 02/04/21 04:45 05:00 05:15 Temperature Pulse Rate 90 93 H 93 H Pulse Rate [ From Monitor] Respiratory 31 H 23 16 Rate Blood Pressure 98/47 101/49 101/49 O2 Sat by Pulse 91 90 91 Oximetry 02/04/21 02/04/21 02/04/21 05:30 05:45 06:00 Temperature Pulse Rate 93 H 92 H 90 Pulse Rate [ From Monitor] Respiratory 15 15 18 Rate Blood Pressure 102/48 108/49 107/51 O2 Sat by Pulse 90 91 90 Oximetry 02/04/21 02/04/21 02/04/21 06:15 06:30 06:45 Temperature Pulse Rate 91 H 92 H 92 H Pulse Rate [ From Monitor] Respiratory 20 17 14 Rate Blood Pressure 117/47 109/49 110/48 O2 Sat by Pulse 91 90 91 Oximetry 02/04/21 02/04/21 02/04/21 07:00 07:15 07:28 Temperature 100.7 F H Pulse Rate 93 H 93 H Pulse Rate [ From Monitor] Respiratory 19 22 Rate Blood Pressure 110/52 112/46 O2 Sat by Pulse 91 91 Oximetry 02/04/21 02/04/21 02/04/21 07:30 07:45 08:00 Temperature Pulse Rate 95 H 98 H 104 H Pulse Rate [ 117 H From Monitor] Respiratory 20 18 22 Rate Blood Pressure 103/48 97/52 121/58 O2 Sat by Pulse 91 90 89 Oximetry 02/04/21 02/04/21 02/04/21 08:15 08:30 08:39 Temperature Pulse Rate 108 H 115 H 114 H Pulse Rate [ From Monitor] Respiratory 22 26 H Rate Blood Pressure 122/59 132/63 115/54 O2 Sat by Pulse 90 90 91 Oximetry 02/04/21 08:45 Temperature Pulse Rate 114 H Pulse Rate [ From Monitor] Respiratory 21 Rate Blood Pressure 115/54 O2 Sat by Pulse 92 Oximetry Constitutional: comatose Eyes: non-icteric ENT: other (orally intubated and sedated) Neck: supple Effort: mildly labored Ascultation: Bilateral: clear Percussion: Bilateral: not dull Cardiovascular: regular rate and rhythm Gastrointestinal: normoactive bowel sounds CBC and BMP: 02/04/21 04:45 02/04/21 04:45 ABG, PT/INR, D-dimer: ABG ABG pH 7.201 (7.320-7.450) L 02/04/21 03:48 POC ABG pCO2 54.5 mmHg (32.0-48.0) H 02/04/21 03:48 ABG pCO2 59.2 mm Hg 02/02/21 05:35 POC ABG pO2 74.0 mmHg (83-108) L 02/04/21 03:48 ABG pO2 72.5 mm Hg (80.0-90.0) L 02/02/21 05:35 POC ABG HCO3 20.9 02/04/21 03:48 ABG O2 Saturation 92.2 (0-100) 02/04/21 03:48 PT/INR, D-dimer D-Dimer > 83206 ng/mlDDU (0-234) H 01/30/21 04:00 Abnormal lab findings: Abnormal Labs 01/22/21 01/22/21 01/22/21 22:39 22:57 22:57 WBC RBC Hgb Hct MCV MCH MCHC RDW Lymph % (Auto) 6.6 L Lymph # (Auto) 0.5 L Seg Neutrophils % 87.6 H Seg Neuts % (Manual) Lymphocytes % (Manual) Seg Neutrophils # Man Lymphocytes # (Manual) D-Dimer ABG pH POC ABG pCO2 POC ABG pO2 ABG pO2 ABG HCO3 ABG O2 Saturation ABG Base Excess ABG Hemoglobin ABG Oxyhemoglobin ABG Sodium ABG Potassium ABG Chloride ABG Glucose Oxyhemoglobin Carboxyhemoglobin Sodium 129 L Potassium 3.4 L Chloride 90.4 L Carbon Dioxide BUN 34 H Creatinine 1.5 H Glucose 146 H POC Glucose Hemoglobin A1c Lactic Acid Calcium 7.8 L Phosphorus Magnesium Ferritin Total Bilirubin AST 75 H ALT 57 H Lactate Dehydrogenase C-Reactive Protein Albumin 2.9 L Triglycerides Arterial Blood Glucose Arterial Blood Ionized Calcium Urine Creatinine 301.2 H Coronavirus (PCR) 01/22/21 01/22/21 01/22/21 22:57 22:57 22:57 WBC RBC Hgb Hct MCV MCH MCHC RDW Lymph % (Auto) Lymph # (Auto) Seg Neutrophils % Seg Neuts % (Manual) Lymphocytes % (Manual) Seg Neutrophils # Man Lymphocytes # (Manual) D-Dimer 1173.89 H ABG pH POC ABG pCO2 POC ABG pO2 ABG pO2 ABG HCO3 ABG O2 Saturation ABG Base Excess ABG Hemoglobin ABG Oxyhemoglobin ABG Sodium ABG Potassium ABG Chloride ABG Glucose Oxyhemoglobin Carboxyhemoglobin Sodium Potassium Chloride Carbon Dioxide BUN Creatinine Glucose 149 H POC Glucose Hemoglobin A1c Lactic Acid 2.10 H* Calcium Phosphorus Magnesium Ferritin Total Bilirubin AST ALT Lactate Dehydrogenase 685 H C-Reactive Protein 30.40 H Albumin Triglycerides Arterial Blood Glucose Arterial Blood Ionized Calcium Urine Creatinine Coronavirus (PCR) 01/22/21 01/23/21 01/23/21 22:57 08:41 10:01 WBC RBC Hgb Hct MCV MCH MCHC RDW Lymph % (Auto) Lymph # (Auto) Seg Neutrophils % Seg Neuts % (Manual) Lymphocytes % (Manual) Seg Neutrophils # Man Lymphocytes # (Manual) D-Dimer ABG pH POC ABG pCO2 POC ABG pO2 ABG pO2 ABG HCO3 ABG O2 Saturation ABG Base Excess ABG Hemoglobin ABG Oxyhemoglobin ABG Sodium ABG Potassium ABG Chloride ABG Glucose Oxyhemoglobin Carboxyhemoglobin Sodium 131 L Potassium Chloride 88.7 L Carbon Dioxide 18 L BUN 36 H Creatinine 1.6 H Glucose 147 H POC Glucose Hemoglobin A1c Lactic Acid Calcium 7.5 L Phosphorus Magnesium Ferritin 1207.0 H Total Bilirubin AST ALT Lactate Dehydrogenase C-Reactive Protein Albumin Triglycerides Arterial Blood Glucose Arterial Blood Ionized Calcium Urine Creatinine Coronavirus (PCR) Positive A 01/23/21 01/23/21 01/24/21 20:49 Unknown 00:10 WBC RBC Hgb Hct MCV MCH MCHC RDW Lymph % (Auto) Lymph # (Auto) Seg Neutrophils % Seg Neuts % (Manual) Lymphocytes % (Manual) Seg Neutrophils # Man Lymphocytes # (Manual) D-Dimer ABG pH POC ABG pCO2 POC ABG pO2 ABG pO2 165.4 H ABG HCO3 ABG O2 Saturation ABG Base Excess -2.5 L ABG Hemoglobin ABG Oxyhemoglobin ABG Sodium ABG Potassium ABG Chloride ABG Glucose Oxyhemoglobin Carboxyhemoglobin Sodium 130 L Potassium Chloride 91.0 L Carbon Dioxide 20 L BUN 52 H Creatinine 3.8 H D Glucose 150 H POC Glucose 125 H Hemoglobin A1c Lactic Acid Calcium 8.0 L Phosphorus Magnesium Ferritin Total Bilirubin AST 42 H ALT Lactate Dehydrogenase C-Reactive Protein Albumin 2.4 L Triglycerides Arterial Blood Glucose Arterial Blood Ionized Calcium Urine Creatinine Coronavirus (PCR) 01/24/21 01/24/21 01/24/21 05:05 05:05 05:05 WBC 14.0 H RBC Hgb Hct MCV 95 H MCH 33 H MCHC RDW Lymph % (Auto) Lymph # (Auto) Seg Neutrophils % Seg Neuts % (Manual) 91.0 H Lymphocytes % (Manual) 4.0 L Seg Neutrophils # Man 12.7 H Lymphocytes # (Manual) 0.6 L D-Dimer 6159.48 H ABG pH POC ABG pCO2 POC ABG pO2 ABG pO2 ABG HCO3 ABG O2 Saturation ABG Base Excess ABG Hemoglobin ABG Oxyhemoglobin ABG Sodium ABG Potassium ABG Chloride ABG Glucose Oxyhemoglobin Carboxyhemoglobin Sodium Potassium Chloride Carbon Dioxide BUN Creatinine Glucose POC Glucose Hemoglobin A1c Lactic Acid Calcium Phosphorus Magnesium Ferritin 1178.0 H Total Bilirubin AST ALT Lactate Dehydrogenase C-Reactive Protein Albumin Triglycerides Arterial Blood Glucose Arterial Blood Ionized Calcium Urine Creatinine Coronavirus (PCR) 01/24/21 01/24/21 01/24/21 05:05 05:05 05:05 WBC RBC Hgb Hct MCV MCH MCHC RDW Lymph % (Auto) Lymph # (Auto) Seg Neutrophils % Seg Neuts % (Manual) Lymphocytes % (Manual) Seg Neutrophils # Man Lymphocytes # (Manual) D-Dimer ABG pH POC ABG pCO2 POC ABG pO2 ABG pO2 ABG HCO3 ABG O2 Saturation ABG Base Excess ABG Hemoglobin ABG Oxyhemoglobin ABG Sodium ABG Potassium ABG Chloride ABG Glucose Oxyhemoglobin Carboxyhemoglobin Sodium 132 L Potassium Chloride 93.1 L Carbon Dioxide 21 L BUN 57 H Creatinine 3.7 H Glucose 133 H POC Glucose Hemoglobin A1c Lactic Acid 2.20 H* Calcium 7.7 L Phosphorus Magnesium Ferritin Total Bilirubin AST ALT Lactate Dehydrogenase 658 H C-Reactive Protein 33.20 H Albumin 2.4 L Triglycerides Arterial Blood Glucose Arterial Blood Ionized Calcium Urine Creatinine Coronavirus (PCR) 01/24/21 01/24/21 01/24/21 05:34 06:00 17:35 WBC RBC Hgb Hct MCV MCH MCHC RDW Lymph % (Auto) Lymph # (Auto) Seg Neutrophils % Seg Neuts % (Manual) Lymphocytes % (Manual) Seg Neutrophils # Man Lymphocytes # (Manual) D-Dimer ABG pH POC ABG pCO2 POC ABG pO2 ABG pO2 ABG HCO3 ABG O2 Saturation ABG Base Excess ABG Hemoglobin ABG Oxyhemoglobin ABG Sodium ABG Potassium ABG Chloride ABG Glucose Oxyhemoglobin Carboxyhemoglobin Sodium Potassium Chloride Carbon Dioxide BUN Creatinine Glucose POC Glucose 136 H 137 H Hemoglobin A1c Lactic Acid Calcium Phosphorus Magnesium 2.80 H Ferritin Total Bilirubin AST ALT Lactate Dehydrogenase C-Reactive Protein Albumin Triglycerides Arterial Blood Glucose Arterial Blood Ionized Calcium Urine Creatinine Coronavirus (PCR) 01/25/21 01/25/21 01/25/21 04:15 05:40 05:40 WBC RBC Hgb Hct MCV 95 H MCH 33 H MCHC 35 H RDW Lymph % (Auto) Lymph # (Auto) Seg Neutrophils % Seg Neuts % (Manual) 95.0 H Lymphocytes % (Manual) 3.0 L Seg Neutrophils # Man 7.8 H Lymphocytes # (Manual) 0.2 L D-Dimer ABG pH POC ABG pCO2 POC ABG pO2 63.2 L ABG pO2 ABG HCO3 ABG O2 Saturation ABG Base Excess ABG Hemoglobin ABG Oxyhemoglobin 89.6 L ABG Sodium ABG Potassium ABG Chloride ABG Glucose 165 H Oxyhemoglobin Carboxyhemoglobin 0.3 L Sodium Potassium Chloride Carbon Dioxide BUN 67 H Creatinine 3.4 H Glucose 153 H POC Glucose Hemoglobin A1c Lactic Acid Calcium 7.5 L Phosphorus Magnesium Ferritin Total Bilirubin 1.40 H AST 62 H ALT Lactate Dehydrogenase C-Reactive Protein Albumin 2.6 L Triglycerides Arterial Blood Glucose 165 H Arterial Blood Ionized Calcium 4.3 L Urine Creatinine Coronavirus (PCR) 01/25/21 01/25/21 01/25/21 05:59 12:00 17:17 WBC RBC Hgb Hct MCV MCH MCHC RDW Lymph % (Auto) Lymph # (Auto) Seg Neutrophils % Seg Neuts % (Manual) Lymphocytes % (Manual) Seg Neutrophils # Man Lymphocytes # (Manual) D-Dimer ABG pH POC ABG pCO2 POC ABG pO2 ABG pO2 ABG HCO3 ABG O2 Saturation ABG Base Excess ABG Hemoglobin ABG Oxyhemoglobin ABG Sodium ABG Potassium ABG Chloride ABG Glucose Oxyhemoglobin Carboxyhemoglobin Sodium Potassium Chloride Carbon Dioxide BUN Creatinine Glucose POC Glucose 140 H 143 H 149 H Hemoglobin A1c Lactic Acid Calcium Phosphorus Magnesium Ferritin Total Bilirubin AST ALT Lactate Dehydrogenase C-Reactive Protein Albumin Triglycerides Arterial Blood Glucose Arterial Blood Ionized Calcium Urine Creatinine Coronavirus (PCR) 01/25/21 01/26/21 01/26/21 23:41 03:43 05:46 WBC RBC Hgb Hct MCV MCH MCHC RDW Lymph % (Auto) Lymph # (Auto) Seg Neutrophils % Seg Neuts % (Manual) Lymphocytes % (Manual) Seg Neutrophils # Man Lymphocytes # (Manual) D-Dimer ABG pH POC ABG pCO2 POC ABG pO2 70.0 L ABG pO2 ABG HCO3 ABG O2 Saturation ABG Base Excess ABG Hemoglobin ABG Oxyhemoglobin 91.9 L ABG Sodium ABG Potassium ABG Chloride 109.0 H ABG Glucose 165 H Oxyhemoglobin Carboxyhemoglobin Sodium Potassium Chloride Carbon Dioxide BUN Creatinine Glucose POC Glucose 132 H 161 H Hemoglobin A1c Lactic Acid Calcium Phosphorus Magnesium Ferritin Total Bilirubin AST ALT Lactate Dehydrogenase C-Reactive Protein Albumin Triglycerides Arterial Blood Glucose 165 H Arterial Blood Ionized Calcium 4.5 L Urine Creatinine Coronavirus (PCR) 01/26/21 01/26/21 01/26/21 05:47 05:47 05:47 WBC RBC Hgb Hct 35.3 L MCV 96 H MCH 33 H MCHC RDW Lymph % (Auto) Lymph # (Auto) Seg Neutrophils % Seg Neuts % (Manual) 96.0 H Lymphocytes % (Manual) 2.0 L Seg Neutrophils # Man Lymphocytes # (Manual) 0.1 L D-Dimer > 50894 H ABG pH POC ABG pCO2 POC ABG pO2 ABG pO2 ABG HCO3 ABG O2 Saturation ABG Base Excess ABG Hemoglobin ABG Oxyhemoglobin ABG Sodium ABG Potassium ABG Chloride ABG Glucose Oxyhemoglobin Carboxyhemoglobin Sodium Potassium Chloride Carbon Dioxide BUN 57 H Creatinine 2.2 H Glucose 185 H POC Glucose Hemoglobin A1c Lactic Acid Calcium 8.1 L Phosphorus Magnesium Ferritin Total Bilirubin AST ALT Lactate Dehydrogenase C-Reactive Protein Albumin Triglycerides Arterial Blood Glucose Arterial Blood Ionized Calcium Urine Creatinine Coronavirus (PCR) 01/26/21 01/26/21 01/26/21 05:47 05:47 05:47 WBC RBC Hgb Hct MCV MCH MCHC RDW Lymph % (Auto) Lymph # (Auto) Seg Neutrophils % Seg Neuts % (Manual) Lymphocytes % (Manual) Seg Neutrophils # Man Lymphocytes # (Manual) D-Dimer ABG pH POC ABG pCO2 POC ABG pO2 ABG pO2 ABG HCO3 ABG O2 Saturation ABG Base Excess ABG Hemoglobin ABG Oxyhemoglobin ABG Sodium ABG Potassium ABG Chloride ABG Glucose Oxyhemoglobin Carboxyhemoglobin Sodium Potassium Chloride 107.1 H Carbon Dioxide BUN 56 H Creatinine 2.2 H Glucose 188 H POC Glucose Hemoglobin A1c Lactic Acid Calcium 8.0 L Phosphorus Magnesium Ferritin 1178.0 H Total Bilirubin 1.50 H AST ALT Lactate Dehydrogenase 588 H C-Reactive Protein 40.10 H Albumin 2.2 L Triglycerides Arterial Blood Glucose Arterial Blood Ionized Calcium Urine Creatinine Coronavirus (PCR) 01/26/21 01/26/21 01/26/21 11:34 18:17 23:20 WBC RBC Hgb Hct MCV MCH MCHC RDW Lymph % (Auto) Lymph # (Auto) Seg Neutrophils % Seg Neuts % (Manual) Lymphocytes % (Manual) Seg Neutrophils # Man Lymphocytes # (Manual) D-Dimer ABG pH POC ABG pCO2 POC ABG pO2 ABG pO2 ABG HCO3 ABG O2 Saturation ABG Base Excess ABG Hemoglobin ABG Oxyhemoglobin ABG Sodium ABG Potassium ABG Chloride ABG Glucose Oxyhemoglobin Carboxyhemoglobin Sodium Potassium Chloride Carbon Dioxide BUN Creatinine Glucose POC Glucose 129 H 205 H 155 H Hemoglobin A1c Lactic Acid Calcium Phosphorus Magnesium Ferritin Total Bilirubin AST ALT Lactate Dehydrogenase C-Reactive Protein Albumin Triglycerides Arterial Blood Glucose Arterial Blood Ionized Calcium Urine Creatinine Coronavirus (PCR) 01/27/21 01/27/21 01/27/21 02:45 05:29 05:29 WBC RBC 3.58 L Hgb 11.7 L Hct 34.9 L MCV 97 H MCH 33 H MCHC RDW Lymph % (Auto) Lymph # (Auto) Seg Neutrophils % Seg Neuts % (Manual) 88.0 H Lymphocytes % (Manual) 7.0 L Seg Neutrophils # Man Lymphocytes # (Manual) 0.5 L D-Dimer ABG pH 7.319 L POC ABG pCO2 50.7 H POC ABG pO2 63.0 L ABG pO2 ABG HCO3 ABG O2 Saturation ABG Base Excess ABG Hemoglobin ABG Oxyhemoglobin ABG Sodium 145.2 H ABG Potassium 5.1 H ABG Chloride 114.0 H ABG Glucose 178 H Oxyhemoglobin Carboxyhemoglobin Sodium Potassium Chloride Carbon Dioxide BUN Creatinine Glucose POC Glucose Hemoglobin A1c Lactic Acid Calcium Phosphorus Magnesium 4.00 H Ferritin Total Bilirubin AST ALT Lactate Dehydrogenase C-Reactive Protein Albumin Triglycerides Arterial Blood Glucose 178 H Arterial Blood Ionized Calcium Urine Creatinine Coronavirus (PCR) 01/27/21 01/27/21 01/27/21 05:29 05:29 05:31 WBC RBC Hgb Hct MCV MCH MCHC RDW Lymph % (Auto) Lymph # (Auto) Seg Neutrophils % Seg Neuts % (Manual) Lymphocytes % (Manual) Seg Neutrophils # Man Lymphocytes # (Manual) D-Dimer ABG pH POC ABG pCO2 POC ABG pO2 ABG pO2 ABG HCO3 ABG O2 Saturation ABG Base Excess ABG Hemoglobin ABG Oxyhemoglobin ABG Sodium ABG Potassium ABG Chloride ABG Glucose Oxyhemoglobin Carboxyhemoglobin Sodium Potassium 5.2 H Chloride 109.6 H Carbon Dioxide BUN 67 H Creatinine 2.8 H Glucose 195 H POC Glucose 176 H Hemoglobin A1c Lactic Acid Calcium 7.9 L Phosphorus Magnesium Ferritin Total Bilirubin AST ALT Lactate Dehydrogenase C-Reactive Protein Albumin Triglycerides 160 H Arterial Blood Glucose Arterial Blood Ionized Calcium Urine Creatinine Coronavirus (PCR) 01/27/21 01/27/21 01/27/21 11:27 18:08 23:30 WBC RBC Hgb Hct MCV MCH MCHC RDW Lymph % (Auto) Lymph # (Auto) Seg Neutrophils % Seg Neuts % (Manual) Lymphocytes % (Manual) Seg Neutrophils # Man Lymphocytes # (Manual) D-Dimer ABG pH POC ABG pCO2 POC ABG pO2 ABG pO2 ABG HCO3 ABG O2 Saturation ABG Base Excess ABG Hemoglobin ABG Oxyhemoglobin ABG Sodium ABG Potassium ABG Chloride ABG Glucose Oxyhemoglobin Carboxyhemoglobin Sodium Potassium Chloride Carbon Dioxide BUN Creatinine Glucose POC Glucose 189 H 212 H 175 H Hemoglobin A1c Lactic Acid Calcium Phosphorus Magnesium Ferritin Total Bilirubin AST ALT Lactate Dehydrogenase C-Reactive Protein Albumin Triglycerides Arterial Blood Glucose Arterial Blood Ionized Calcium Urine Creatinine Coronavirus (PCR) 01/28/21 01/28/21 01/28/21 03:58 04:00 04:00 WBC RBC Hgb Hct MCV MCH MCHC RDW Lymph % (Auto) Lymph # (Auto) Seg Neutrophils % Seg Neuts % (Manual) Lymphocytes % (Manual) Seg Neutrophils # Man Lymphocytes # (Manual) D-Dimer > 27701 H ABG pH POC ABG pCO2 POC ABG pO2 52.9 L ABG pO2 ABG HCO3 ABG O2 Saturation ABG Base Excess ABG Hemoglobin ABG Oxyhemoglobin 84.1 L ABG Sodium 148.9 H ABG Potassium ABG Chloride 117.0 H ABG Glucose 194 H Oxyhemoglobin Carboxyhemoglobin Sodium Potassium Chloride Carbon Dioxide BUN Creatinine Glucose POC Glucose Hemoglobin A1c Lactic Acid Calcium Phosphorus Magnesium Ferritin Total Bilirubin AST ALT Lactate Dehydrogenase 679 H C-Reactive Protein 17.10 H Albumin Triglycerides Arterial Blood Glucose 194 H Arterial Blood Ionized Calcium Urine Creatinine Coronavirus (PCR) 01/28/21 01/28/21 01/28/21 04:00 05:00 06:00 WBC RBC 3.59 L Hgb 11.6 L Hct 34.8 L MCV 97 H MCH MCHC RDW Lymph % (Auto) Lymph # (Auto) Seg Neutrophils % Seg Neuts % (Manual) 96.0 H Lymphocytes % (Manual) 3.0 L Seg Neutrophils # Man Lymphocytes # (Manual) 0.2 L D-Dimer ABG pH POC ABG pCO2 POC ABG pO2 ABG pO2 ABG HCO3 ABG O2 Saturation ABG Base Excess ABG Hemoglobin ABG Oxyhemoglobin ABG Sodium ABG Potassium ABG Chloride ABG Glucose Oxyhemoglobin Carboxyhemoglobin Sodium Potassium Chloride Carbon Dioxide BUN Creatinine Glucose POC Glucose 159 H Hemoglobin A1c Lactic Acid Calcium Phosphorus Magnesium Ferritin 798.0 H Total Bilirubin AST ALT Lactate Dehydrogenase C-Reactive Protein Albumin Triglycerides Arterial Blood Glucose Arterial Blood Ionized Calcium Urine Creatinine Coronavirus (PCR) 01/28/21 01/28/21 01/28/21 06:00 06:00 08:12 WBC RBC Hgb Hct MCV MCH MCHC RDW Lymph % (Auto) Lymph # (Auto) Seg Neutrophils % Seg Neuts % (Manual) Lymphocytes % (Manual) Seg Neutrophils # Man Lymphocytes # (Manual) D-Dimer ABG pH POC ABG pCO2 POC ABG pO2 ABG pO2 ABG HCO3 ABG O2 Saturation ABG Base Excess ABG Hemoglobin ABG Oxyhemoglobin ABG Sodium ABG Potassium ABG Chloride ABG Glucose Oxyhemoglobin Carboxyhemoglobin Sodium Potassium Chloride 111.9 H Carbon Dioxide BUN 59 H Creatinine 2.2 H Glucose 189 H POC Glucose 181 H Hemoglobin A1c Lactic Acid Calcium 8.1 L Phosphorus Magnesium 3.20 H Ferritin Total Bilirubin AST ALT Lactate Dehydrogenase C-Reactive Protein Albumin Triglycerides Arterial Blood Glucose Arterial Blood Ionized Calcium Urine Creatinine Coronavirus (PCR) 01/28/21 01/28/21 01/28/21 12:03 16:43 23:51 WBC RBC Hgb Hct MCV MCH MCHC RDW Lymph % (Auto) Lymph # (Auto) Seg Neutrophils % Seg Neuts % (Manual) Lymphocytes % (Manual) Seg Neutrophils # Man Lymphocytes # (Manual) D-Dimer ABG pH POC ABG pCO2 POC ABG pO2 ABG pO2 ABG HCO3 ABG O2 Saturation ABG Base Excess ABG Hemoglobin ABG Oxyhemoglobin ABG Sodium ABG Potassium ABG Chloride ABG Glucose Oxyhemoglobin Carboxyhemoglobin Sodium Potassium Chloride Carbon Dioxide BUN Creatinine Glucose POC Glucose 164 H 198 H 196 H Hemoglobin A1c Lactic Acid Calcium Phosphorus Magnesium Ferritin Total Bilirubin AST ALT Lactate Dehydrogenase C-Reactive Protein Albumin Triglycerides Arterial Blood Glucose Arterial Blood Ionized Calcium Urine Creatinine Coronavirus (PCR) 01/29/21 01/29/21 01/29/21 05:00 05:23 06:00 WBC RBC Hgb Hct MCV MCH MCHC RDW Lymph % (Auto) Lymph # (Auto) Seg Neutrophils % Seg Neuts % (Manual) Lymphocytes % (Manual) Seg Neutrophils # Man Lymphocytes # (Manual) D-Dimer ABG pH 7.119 L POC ABG pCO2 87.1 H POC ABG pO2 ABG pO2 ABG HCO3 ABG O2 Saturation ABG Base Excess ABG Hemoglobin ABG Oxyhemoglobin ABG Sodium 152.5 H ABG Potassium 5.7 H ABG Chloride 120.0 H ABG Glucose 217 H Oxyhemoglobin Carboxyhemoglobin Sodium 151 H Potassium 5.9 H D Chloride 117.8 H Carbon Dioxide BUN 54 H Creatinine 2.2 H Glucose 208 H POC Glucose 180 H Hemoglobin A1c Lactic Acid Calcium 7.9 L Phosphorus Magnesium Ferritin Total Bilirubin AST ALT Lactate Dehydrogenase C-Reactive Protein Albumin Triglycerides Arterial Blood Glucose 217 H Arterial Blood Ionized Calcium Urine Creatinine Coronavirus (PCR) 01/29/21 01/29/21 01/29/21 12:29 17:28 18:05 WBC RBC Hgb Hct MCV MCH MCHC RDW Lymph % (Auto) Lymph # (Auto) Seg Neutrophils % Seg Neuts % (Manual) Lymphocytes % (Manual) Seg Neutrophils # Man Lymphocytes # (Manual) D-Dimer ABG pH POC ABG pCO2 POC ABG pO2 ABG pO2 ABG HCO3 ABG O2 Saturation ABG Base Excess ABG Hemoglobin ABG Oxyhemoglobin ABG Sodium ABG Potassium ABG Chloride ABG Glucose Oxyhemoglobin Carboxyhemoglobin Sodium 151 H Potassium 5.5 H Chloride 118.2 H Carbon Dioxide BUN 52 H Creatinine 2.2 H Glucose 224 H POC Glucose 181 H 203 H Hemoglobin A1c Lactic Acid Calcium 8.0 L Phosphorus Magnesium Ferritin Total Bilirubin AST ALT Lactate Dehydrogenase C-Reactive Protein Albumin Triglycerides Arterial Blood Glucose Arterial Blood Ionized Calcium Urine Creatinine Coronavirus (PCR) 01/29/21 01/29/21 01/29/21 18:13 23:34 Unknown WBC RBC Hgb Hct MCV 101 H MCH MCHC RDW 15.7 H Lymph % (Auto) Lymph # (Auto) Seg Neutrophils % Seg Neuts % (Manual) 95.0 H Lymphocytes % (Manual) 3.0 L Seg Neutrophils # Man 8.0 H Lymphocytes # (Manual) 0.3 L D-Dimer ABG pH 7.223 L POC ABG pCO2 64.8 H POC ABG pO2 63.6 L ABG pO2 ABG HCO3 ABG O2 Saturation ABG Base Excess ABG Hemoglobin ABG Oxyhemoglobin 89.4 L ABG Sodium 152.9 H ABG Potassium 5.3 H ABG Chloride 121.0 H ABG Glucose 227 H Oxyhemoglobin Carboxyhemoglobin Sodium Potassium Chloride Carbon Dioxide BUN Creatinine Glucose POC Glucose 198 H Hemoglobin A1c Lactic Acid Calcium Phosphorus Magnesium Ferritin Total Bilirubin AST ALT Lactate Dehydrogenase C-Reactive Protein Albumin Triglycerides Arterial Blood Glucose 227 H Arterial Blood Ionized Calcium Urine Creatinine Coronavirus (PCR) 01/30/21 01/30/21 01/30/21 04:00 04:00 04:00 WBC RBC Hgb Hct MCV MCH MCHC RDW Lymph % (Auto) Lymph # (Auto) Seg Neutrophils % Seg Neuts % (Manual) Lymphocytes % (Manual) Seg Neutrophils # Man Lymphocytes # (Manual) D-Dimer > 83304 H ABG pH POC ABG pCO2 POC ABG pO2 ABG pO2 ABG HCO3 ABG O2 Saturation ABG Base Excess ABG Hemoglobin ABG Oxyhemoglobin ABG Sodium ABG Potassium ABG Chloride ABG Glucose Oxyhemoglobin Carboxyhemoglobin Sodium Potassium Chloride Carbon Dioxide BUN Creatinine Glucose 234 H POC Glucose Hemoglobin A1c Lactic Acid Calcium Phosphorus Magnesium Ferritin 763.9 H Total Bilirubin AST ALT Lactate Dehydrogenase 424 H C-Reactive Protein 23.90 H Albumin Triglycerides Arterial Blood Glucose Arterial Blood Ionized Calcium Urine Creatinine Coronavirus (PCR) 01/30/21 01/30/21 01/30/21 04:24 05:00 05:16 WBC RBC 3.57 L Hgb 11.3 L Hct 35.4 L MCV 99 H MCH MCHC RDW 15.6 H Lymph % (Auto) Lymph # (Auto) Seg Neutrophils % Seg Neuts % (Manual) 97.0 H Lymphocytes % (Manual) 1.0 L Seg Neutrophils # Man 8.6 H Lymphocytes # (Manual) 0.1 L D-Dimer ABG pH 7.235 L POC ABG pCO2 69.7 H POC ABG pO2 61.0 L ABG pO2 ABG HCO3 ABG O2 Saturation ABG Base Excess ABG Hemoglobin ABG Oxyhemoglobin 89 L ABG Sodium 154.2 H ABG Potassium 5.4 H ABG Chloride 121.0 H ABG Glucose 247 H Oxyhemoglobin Carboxyhemoglobin Sodium Potassium Chloride Carbon Dioxide BUN Creatinine Glucose POC Glucose 238 H Hemoglobin A1c Lactic Acid Calcium Phosphorus Magnesium Ferritin Total Bilirubin AST ALT Lactate Dehydrogenase C-Reactive Protein Albumin Triglycerides Arterial Blood Glucose 247 H Arterial Blood Ionized Calcium Urine Creatinine Coronavirus (PCR) 01/30/21 01/30/21 01/30/21 06:00 11:28 12:00 WBC RBC Hgb Hct MCV MCH MCHC RDW Lymph % (Auto) Lymph # (Auto) Seg Neutrophils % Seg Neuts % (Manual) Lymphocytes % (Manual) Seg Neutrophils # Man Lymphocytes # (Manual) D-Dimer ABG pH POC ABG pCO2 POC ABG pO2 ABG pO2 ABG HCO3 ABG O2 Saturation ABG Base Excess ABG Hemoglobin ABG Oxyhemoglobin ABG Sodium ABG Potassium ABG Chloride ABG Glucose Oxyhemoglobin Carboxyhemoglobin Sodium 152 H Potassium 5.3 H Chloride 120.5 H Carbon Dioxide BUN 50 H Creatinine 2.3 H Glucose 239 H POC Glucose 153 H Hemoglobin A1c Lactic Acid Calcium 8.2 L Phosphorus Magnesium 2.60 H Ferritin Total Bilirubin AST ALT Lactate Dehydrogenase C-Reactive Protein Albumin Triglycerides 293 H Arterial Blood Glucose Arterial Blood Ionized Calcium Urine Creatinine 53.0 H Coronavirus (PCR) 01/30/21 01/30/21 01/31/21 18:49 23:06 04:00 WBC RBC Hgb Hct MCV MCH MCHC RDW Lymph % (Auto) Lymph # (Auto) Seg Neutrophils % Seg Neuts % (Manual) Lymphocytes % (Manual) Seg Neutrophils # Man Lymphocytes # (Manual) D-Dimer ABG pH POC ABG pCO2 POC ABG pO2 ABG pO2 ABG HCO3 ABG O2 Saturation ABG Base Excess ABG Hemoglobin ABG Oxyhemoglobin ABG Sodium ABG Potassium ABG Chloride ABG Glucose Oxyhemoglobin Carboxyhemoglobin Sodium 156 H Potassium 5.9 H Chloride 122.6 H Carbon Dioxide BUN 61 H Creatinine 3.2 H Glucose 205 H POC Glucose 220 H 192 H Hemoglobin A1c Lactic Acid Calcium 8.0 L Phosphorus Magnesium Ferritin Total Bilirubin AST ALT Lactate Dehydrogenase C-Reactive Protein Albumin Triglycerides Arterial Blood Glucose Arterial Blood Ionized Calcium Urine Creatinine Coronavirus (PCR) 01/31/21 01/31/21 01/31/21 04:40 05:17 11:33 WBC RBC Hgb Hct MCV MCH MCHC RDW Lymph % (Auto) Lymph # (Auto) Seg Neutrophils % Seg Neuts % (Manual) Lymphocytes % (Manual) Seg Neutrophils # Man Lymphocytes # (Manual) D-Dimer ABG pH 7.161 L* POC ABG pCO2 POC ABG pO2 ABG pO2 142.2 H ABG HCO3 28.3 H ABG O2 Saturation ABG Base Excess -3.2 L ABG Hemoglobin ABG Oxyhemoglobin ABG Sodium ABG Potassium ABG Chloride ABG Glucose Oxyhemoglobin Carboxyhemoglobin Sodium Potassium Chloride Carbon Dioxide BUN Creatinine Glucose POC Glucose 200 H 167 H Hemoglobin A1c Lactic Acid Calcium Phosphorus Magnesium Ferritin Total Bilirubin AST ALT Lactate Dehydrogenase C-Reactive Protein Albumin Triglycerides Arterial Blood Glucose Arterial Blood Ionized Calcium Urine Creatinine Coronavirus (PCR) 01/31/21 01/31/21 01/31/21 14:00 17:10 23:24 WBC RBC Hgb Hct MCV MCH MCHC RDW Lymph % (Auto) Lymph # (Auto) Seg Neutrophils % Seg Neuts % (Manual) Lymphocytes % (Manual) Seg Neutrophils # Man Lymphocytes # (Manual) D-Dimer ABG pH 7.205 L POC ABG pCO2 POC ABG pO2 ABG pO2 90.9 H ABG HCO3 26.5 H ABG O2 Saturation ABG Base Excess -2.7 L ABG Hemoglobin 12.3 L ABG Oxyhemoglobin ABG Sodium ABG Potassium ABG Chloride ABG Glucose Oxyhemoglobin 93.9 L Carboxyhemoglobin Sodium Potassium Chloride Carbon Dioxide BUN Creatinine Glucose POC Glucose 190 H 203 H Hemoglobin A1c Lactic Acid Calcium Phosphorus Magnesium Ferritin Total Bilirubin AST ALT Lactate Dehydrogenase C-Reactive Protein Albumin Triglycerides Arterial Blood Glucose Arterial Blood Ionized Calcium Urine Creatinine Coronavirus (PCR) 02/01/21 02/01/21 02/01/21 05:15 06:22 10:20 WBC RBC Hgb Hct MCV MCH MCHC RDW Lymph % (Auto) Lymph # (Auto) Seg Neutrophils % Seg Neuts % (Manual) Lymphocytes % (Manual) Seg Neutrophils # Man Lymphocytes # (Manual) D-Dimer ABG pH 6.920 L* 7.116 L* POC ABG pCO2 POC ABG pO2 ABG pO2 102.9 H 113.1 H ABG HCO3 28.2 H ABG O2 Saturation 92.9 L ABG Base Excess -6.9 L -5.8 L ABG Hemoglobin 11.6 L 9.5 L ABG Oxyhemoglobin ABG Sodium ABG Potassium ABG Chloride ABG Glucose Oxyhemoglobin 90.5 L 94.6 L Carboxyhemoglobin Sodium Potassium Chloride Carbon Dioxide BUN Creatinine Glucose POC Glucose 221 H Hemoglobin A1c Lactic Acid Calcium Phosphorus Magnesium Ferritin Total Bilirubin AST ALT Lactate Dehydrogenase C-Reactive Protein Albumin Triglycerides Arterial Blood Glucose Arterial Blood Ionized Calcium Urine Creatinine Coronavirus (PCR) 02/01/21 02/01/21 02/01/21 11:12 12:35 16:00 WBC RBC Hgb Hct MCV MCH MCHC RDW Lymph % (Auto) Lymph # (Auto) Seg Neutrophils % Seg Neuts % (Manual) Lymphocytes % (Manual) Seg Neutrophils # Man Lymphocytes # (Manual) D-Dimer ABG pH 7.155 L* POC ABG pCO2 POC ABG pO2 ABG pO2 94.6 H ABG HCO3 ABG O2 Saturation ABG Base Excess -6.5 L ABG Hemoglobin 13.1 L ABG Oxyhemoglobin ABG Sodium ABG Potassium ABG Chloride ABG Glucose Oxyhemoglobin 93.7 L Carboxyhemoglobin Sodium 155 H Potassium 5.1 H Chloride 120.5 H Carbon Dioxide BUN 90 H Creatinine 6.1 H D Glucose 238 H POC Glucose 207 H Hemoglobin A1c Lactic Acid Calcium 7.4 L Phosphorus Magnesium Ferritin Total Bilirubin AST ALT Lactate Dehydrogenase C-Reactive Protein Albumin Triglycerides Arterial Blood Glucose Arterial Blood Ionized Calcium Urine Creatinine Coronavirus (PCR) 02/01/21 02/01/21 02/02/21 17:10 23:47 04:04 WBC RBC 3.02 L Hgb 9.8 L Hct 30.7 L MCV 102 H MCH MCHC RDW 15.6 H Lymph % (Auto) 4.2 L Lymph # (Auto) 0.3 L Seg Neutrophils % Seg Neuts % (Manual) Lymphocytes % (Manual) Seg Neutrophils # Man Lymphocytes # (Manual) D-Dimer ABG pH POC ABG pCO2 POC ABG pO2 ABG pO2 ABG HCO3 ABG O2 Saturation ABG Base Excess ABG Hemoglobin ABG Oxyhemoglobin ABG Sodium ABG Potassium ABG Chloride ABG Glucose Oxyhemoglobin Carboxyhemoglobin Sodium Potassium Chloride Carbon Dioxide BUN Creatinine Glucose POC Glucose 238 H 235 H Hemoglobin A1c Lactic Acid Calcium Phosphorus Magnesium Ferritin Total Bilirubin AST ALT Lactate Dehydrogenase C-Reactive Protein Albumin Triglycerides Arterial Blood Glucose Arterial Blood Ionized Calcium Urine Creatinine Coronavirus (PCR) 02/02/21 02/02/21 02/02/21 05:18 05:35 11:28 WBC RBC Hgb Hct MCV MCH MCHC RDW Lymph % (Auto) Lymph # (Auto) Seg Neutrophils % Seg Neuts % (Manual) Lymphocytes % (Manual) Seg Neutrophils # Man Lymphocytes # (Manual) D-Dimer ABG pH 7.195 L* POC ABG pCO2 POC ABG pO2 ABG pO2 72.5 L ABG HCO3 ABG O2 Saturation 91.2 L ABG Base Excess -5.3 L ABG Hemoglobin 6.0 L ABG Oxyhemoglobin ABG Sodium ABG Potassium ABG Chloride ABG Glucose Oxyhemoglobin 89.1 L Carboxyhemoglobin Sodium Potassium Chloride 110.4 H Carbon Dioxide BUN 92 H Creatinine Glucose POC Glucose 239 H Hemoglobin A1c Lactic Acid Calcium Phosphorus Magnesium Ferritin Total Bilirubin AST ALT Lactate Dehydrogenase C-Reactive Protein Albumin Triglycerides Arterial Blood Glucose Arterial Blood Ionized Calcium Urine Creatinine Coronavirus (PCR) 02/02/21 02/02/21 02/02/21 11:53 16:00 18:04 WBC RBC Hgb Hct MCV MCH MCHC RDW Lymph % (Auto) Lymph # (Auto) Seg Neutrophils % Seg Neuts % (Manual) Lymphocytes % (Manual) Seg Neutrophils # Man Lymphocytes # (Manual) D-Dimer ABG pH POC ABG pCO2 POC ABG pO2 ABG pO2 ABG HCO3 ABG O2 Saturation ABG Base Excess ABG Hemoglobin ABG Oxyhemoglobin ABG Sodium ABG Potassium ABG Chloride ABG Glucose Oxyhemoglobin Carboxyhemoglobin Sodium Potassium Chloride Carbon Dioxide BUN Creatinine Glucose POC Glucose 248 H 199 H Hemoglobin A1c 6.3 H Lactic Acid Calcium Phosphorus Magnesium Ferritin Total Bilirubin AST ALT Lactate Dehydrogenase C-Reactive Protein Albumin Triglycerides Arterial Blood Glucose Arterial Blood Ionized Calcium Urine Creatinine Coronavirus (PCR) 02/02/21 02/03/21 02/03/21 23:31 03:12 04:10 WBC RBC 3.06 L Hgb 9.7 L Hct 30.4 L MCV 99 H MCH MCHC RDW 15.3 H Lymph % (Auto) 6.1 L Lymph # (Auto) 0.5 L Seg Neutrophils % 86.1 H Seg Neuts % (Manual) Lymphocytes % (Manual) Seg Neutrophils # Man Lymphocytes # (Manual) D-Dimer ABG pH 7.199 L POC ABG pCO2 48.3 H POC ABG pO2 68.3 L ABG pO2 ABG HCO3 ABG O2 Saturation ABG Base Excess ABG Hemoglobin 10.2 L ABG Oxyhemoglobin 89.2 L ABG Sodium 155.0 H ABG Potassium 4.6 H ABG Chloride 121.0 H ABG Glucose 166 H Oxyhemoglobin Carboxyhemoglobin 0.3 L Sodium Potassium Chloride Carbon Dioxide BUN Creatinine Glucose POC Glucose 200 H Hemoglobin A1c Lactic Acid Calcium Phosphorus Magnesium Ferritin Total Bilirubin AST ALT Lactate Dehydrogenase C-Reactive Protein Albumin Triglycerides Arterial Blood Glucose 166 H Arterial Blood Ionized Calcium 4.1 L Urine Creatinine Coronavirus (PCR) 02/03/21 02/03/21 02/03/21 04:10 05:34 11:51 WBC RBC Hgb Hct MCV MCH MCHC RDW Lymph % (Auto) Lymph # (Auto) Seg Neutrophils % Seg Neuts % (Manual) Lymphocytes % (Manual) Seg Neutrophils # Man Lymphocytes # (Manual) D-Dimer ABG pH POC ABG pCO2 POC ABG pO2 ABG pO2 ABG HCO3 ABG O2 Saturation ABG Base Excess ABG Hemoglobin ABG Oxyhemoglobin ABG Sodium ABG Potassium ABG Chloride ABG Glucose Oxyhemoglobin Carboxyhemoglobin Sodium 154 H D Potassium Chloride 116.7 H Carbon Dioxide 20 L BUN 130 H Creatinine 9.2 H D Glucose 160 H POC Glucose 130 H 154 H Hemoglobin A1c Lactic Acid Calcium 6.7 L Phosphorus 8.60 H Magnesium Ferritin Total Bilirubin AST ALT Lactate Dehydrogenase C-Reactive Protein Albumin Triglycerides Arterial Blood Glucose Arterial Blood Ionized Calcium Urine Creatinine Coronavirus (PCR) 02/03/21 02/03/21 02/04/21 16:49 23:22 03:48 WBC RBC Hgb Hct MCV MCH MCHC RDW Lymph % (Auto) Lymph # (Auto) Seg Neutrophils % Seg Neuts % (Manual) Lymphocytes % (Manual) Seg Neutrophils # Man Lymphocytes # (Manual) D-Dimer ABG pH 7.201 L POC ABG pCO2 54.5 H POC ABG pO2 74.0 L ABG pO2 ABG HCO3 ABG O2 Saturation ABG Base Excess ABG Hemoglobin 9.7 L ABG Oxyhemoglobin 91.1 L ABG Sodium 146.2 H ABG Potassium ABG Chloride 114.0 H ABG Glucose 155 H Oxyhemoglobin Carboxyhemoglobin Sodium Potassium Chloride Carbon Dioxide BUN Creatinine Glucose POC Glucose 164 H 152 H Hemoglobin A1c Lactic Acid Calcium Phosphorus Magnesium Ferritin Total Bilirubin AST ALT Lactate Dehydrogenase C-Reactive Protein Albumin Triglycerides Arterial Blood Glucose 155 H Arterial Blood Ionized Calcium 3.9 L Urine Creatinine Coronavirus (PCR) 02/04/21 02/04/21 02/04/21 04:45 04:45 04:45 WBC RBC 2.75 L Hgb 9.1 L Hct 26.9 L MCV 98 H MCH 33 H MCHC RDW Lymph % (Auto) 6.8 L Lymph # (Auto) 0.5 L Seg Neutrophils % 87.2 H Seg Neuts % (Manual) Lymphocytes % (Manual) Seg Neutrophils # Man Lymphocytes # (Manual) D-Dimer ABG pH POC ABG pCO2 POC ABG pO2 ABG pO2 ABG HCO3 ABG O2 Saturation ABG Base Excess ABG Hemoglobin ABG Oxyhemoglobin ABG Sodium ABG Potassium ABG Chloride ABG Glucose Oxyhemoglobin Carboxyhemoglobin Sodium 149 H Potassium Chloride 111.5 H Carbon Dioxide BUN 99 H Creatinine 8.5 H Glucose 139 H POC Glucose Hemoglobin A1c Lactic Acid Calcium 6.8 L Phosphorus 8.40 H Magnesium Ferritin Total Bilirubin AST ALT Lactate Dehydrogenase C-Reactive Protein Albumin Triglycerides Arterial Blood Glucose Arterial Blood Ionized Calcium Urine Creatinine Coronavirus (PCR) 02/04/21 02/04/21 06:05 11:44 WBC RBC Hgb Hct MCV MCH MCHC RDW Lymph % (Auto) Lymph # (Auto) Seg Neutrophils % Seg Neuts % (Manual) Lymphocytes % (Manual) Seg Neutrophils # Man Lymphocytes # (Manual) D-Dimer ABG pH POC ABG pCO2 POC ABG pO2 ABG pO2 ABG HCO3 ABG O2 Saturation ABG Base Excess ABG Hemoglobin ABG Oxyhemoglobin ABG Sodium ABG Potassium ABG Chloride ABG Glucose Oxyhemoglobin Carboxyhemoglobin Sodium Potassium Chloride Carbon Dioxide BUN Creatinine Glucose POC Glucose 138 H 129 H Hemoglobin A1c Lactic Acid Calcium Phosphorus Magnesium Ferritin Total Bilirubin AST ALT Lactate Dehydrogenase C-Reactive Protein Albumin Triglycerides Arterial Blood Glucose Arterial Blood Ionized Calcium Urine Creatinine Coronavirus (PCR)
--- NOTE | 2021-02-04 12:04 | Progress Note ---
Assessment and Plan Cultures: Blood culture no growth today SARS CoV2 PCR positive 01/22/2021 respiratory culture: Usual respiratory dillon Blood Culture 01/30/2021 no growth today Urine culture 01/30/2021 no growth today Sputum culture 01/30/2021 usual respiratory dillon Assessment: 60 year old male with history of morbid obesity admitted on 01/22/2021 secondary to 3-day history of worsening shortness of breath associated with fever, chills, loss of smell and taste: #Severe sepsis with septic shock: Noted low-grade fever at 100.9, remains on pressors. likely due to bilateral pneumonia. Urinalysis negative. Procalcitonin elevated in the setting of DEISI. #Critical COVID-19 pneumonia: Patient remains intubated. Chest x-ray with bilateral airspace disease. Inflammatory markers worsening, D-dimer>10K. CRP 40-->23. Completed remdesivir. #Acute respiratory failure: Remains on the ventilator #Transaminitis: Likely secondary to COVID-19. #DEISI: Worsening, creatinine 3.2--> 6.1. To Start hemodialysis Recommendations: -Continue cefepime renally adjusted D6 of 7 -Stop vancomycin, MRSA PCR negative -Will repeat blood cultures UA and sputum culture if fever continues -Continue steroids per pulmonary -Monitor inflammatory markers, ordered today -Anticoagulation per protocol, very high d-dimer Very guarded prognosis Will follow Jami Laird MD Infectious Diseases Drilling Supervisor [facility] M [phone] O [phone] Subjective Date of service: 02/04/21 Principal diagnosis: DEISI Interval history: Patient remains critically ill, intubated FiO2 90%, remains on Levophed, low- grade fever Objective - Exam Narrative Exam: General appearance: Sedated intubated Eyes: anicteric sclerae, moist conjunctivae; no lid-lag; PERRLA HENT: Normocephalic, Atraumatic; normal external ears, nares open, oropharynx limited, endotracheal tube in place, OG tube in place Neck: supple, tracheal midline, no JVD Lungs: CTA, with normal respiratory effort and no intercostal retractions CV: RRR no murmur Abdomen: Soft, nontender Extremities: Bilateral arm edema Skin: No rash. Psych: Sedated Neuro: Sedated Black catheter in place, right arm PICC line - Constitutional Vitals: Vital Signs Temp Pulse Resp BP Pulse Ox 100.7 F H 114 H 21 91/52 90 02/04/21 07:28 02/04/21 11:45 02/04/21 11:45 02/04/21 11:45 02/04/21 11:45 Temperature -Last 24 Hours Temperature 100.7 F Temperature 100.9 F Temperature 100.6 F Temperature 99.8 F Temperature 98.4 F Temperature 98.4 F Temperature 98.1 F - Labs CBC & Chem 7: 02/04/21 04:45 02/04/21 04:45 Labs: Abnormal lab results 02/03/21 02/03/21 02/04/21 Range/Units 16:49 23:22 03:48 RBC (3.65-5.03) M/mm3 Hgb (11.8-15.2) gm/dl Hct (35.5-45.6) % MCV (84-94) fl MCH (28-32) pg Lymph % (Auto) (13.4-35.0) % Lymph # (Auto) (1.2-5.4) K/mm3 Seg Neutrophils % (40.0-70.0) % ABG pH 7.201 L (7.320-7.450) POC ABG pCO2 54.5 H (32.0-48.0) mmHg POC ABG pO2 74.0 L (83-108) mmHg ABG Hemoglobin 9.7 L (12.0-17.5) ABG Oxyhemoglobin 91.1 L (94-98) ABG Sodium 146.2 H (136.0-145.0) mmol/L ABG Chloride 114.0 H (98-107) mmol/L ABG Glucose 155 H (65-95) mg/dL Sodium (137-145) mmol/L Chloride (98-107) mmol/L BUN (9-20) mg/dL Creatinine (0.8-1.3) mg/dL Glucose (75-100) mg/dL POC Glucose 164 H 152 H (70-105) mg/dL Calcium (8.4-10.2) mg/dL Phosphorus (2.5-4.5) mg/dL Arterial Blood Glucose 155 H (65-95) mg/dL Arterial Blood Ionized Calcium 3.9 L (4.6-5.3) mg/dL 02/04/21 02/04/21 02/04/21 Range/Units 04:45 04:45 04:45 RBC 2.75 L (3.65-5.03) M/mm3 Hgb 9.1 L (11.8-15.2) gm/dl Hct 26.9 L (35.5-45.6) % MCV 98 H (84-94) fl MCH 33 H (28-32) pg Lymph % (Auto) 6.8 L (13.4-35.0) % Lymph # (Auto) 0.5 L (1.2-5.4) K/mm3 Seg Neutrophils % 87.2 H (40.0-70.0) % ABG pH (7.320-7.450) POC ABG pCO2 (32.0-48.0) mmHg POC ABG pO2 (83-108) mmHg ABG Hemoglobin (12.0-17.5) ABG Oxyhemoglobin (94-98) ABG Sodium (136.0-145.0) mmol/L ABG Chloride (98-107) mmol/L ABG Glucose (65-95) mg/dL Sodium 149 H (137-145) mmol/L Chloride 111.5 H (98-107) mmol/L BUN 99 H (9-20) mg/dL Creatinine 8.5 H (0.8-1.3) mg/dL Glucose 139 H (75-100) mg/dL POC Glucose (70-105) mg/dL Calcium 6.8 L (8.4-10.2) mg/dL Phosphorus 8.40 H (2.5-4.5) mg/dL Arterial Blood Glucose (65-95) mg/dL Arterial Blood Ionized Calcium (4.6-5.3) mg/dL 02/04/21 02/04/21 Range/Units 06:05 11:44 RBC (3.65-5.03) M/mm3 Hgb (11.8-15.2) gm/dl Hct (35.5-45.6) % MCV (84-94) fl MCH (28-32) pg Lymph % (Auto) (13.4-35.0) % Lymph # (Auto) (1.2-5.4) K/mm3 Seg Neutrophils % (40.0-70.0) % ABG pH (7.320-7.450) POC ABG pCO2 (32.0-48.0) mmHg POC ABG pO2 (83-108) mmHg ABG Hemoglobin (12.0-17.5) ABG Oxyhemoglobin (94-98) ABG Sodium (136.0-145.0) mmol/L ABG Chloride (98-107) mmol/L ABG Glucose (65-95) mg/dL Sodium (137-145) mmol/L Chloride (98-107) mmol/L BUN (9-20) mg/dL Creatinine (0.8-1.3) mg/dL Glucose (75-100) mg/dL POC Glucose 138 H 129 H (70-105) mg/dL Calcium (8.4-10.2) mg/dL Phosphorus (2.5-4.5) mg/dL Arterial Blood Glucose (65-95) mg/dL Arterial Blood Ionized Calcium (4.6-5.3) mg/dL
[2021-02-04] MEDS: ACETAMINOPHEN 325 MG/10.15 ML ORAL LIQD UNIT DOSE FEEDTUBE PRN ×2 (12:29→21:35)
--- NOTE | 2021-02-04 12:38 | XRay Report ---
CHEST 1 VIEW INDICATION: Fevers COMPARISON: February 03, 2021 FINDINGS: SUPPORT DEVICES: Endotracheal tubes in good position. Central venous line has tip in superior vena ca va. HEART / MEDIASTINUM: No significant abnormality. LUNGS / PLEURA: Persistent bilateral airspace pulmonary process with possible small bilateral pleural effusions No pneumothorax. ADDITIONAL FINDINGS: IMPRESSION: 1. No interval changes compared to previous exam Signer Name: Allen Ennis MD Signed: 02/04/2021 12:33 PM Workstation Name: [id number]
[2021-02-04] MEDS ORDERED: SODIUM CHLORIDE 0.9% 100 ML IV PRN (13:00)
--- NOTE | 2021-02-04 13:27 | Progress Note ---
Assessment and Plan Assessment: Acute Hypoxic respiratory failure COVID-19 PNA Severe sepsis with septic shock Acute kidney injury secondary to ATN Hyperkalemia Hypernatremia DM2 on insulin Plan: Renal function reviewed, SCr level was 8.5 today, yesteday's SCr level was 9.2 S/p HD yesterday for UF and clearance, UF removed 1L HD again today for gentle UF and clearance Assess need for HD on daily basis Initiated on HD on 02/03/21 s/p Right IJ Trialysis dialysis catheter placement by Dr Reddy On levaphed drip Most recent serum Na level was 149 today, yesterday's serum Na level was 154 On free water flushes to 400 ml Q4hrs for hypernatremia Strict I&O Renally dose meds Renal plan d/w Dr Sams Subjective Date of service: 02/04/21 Principal diagnosis: DEISI Interval history: Pt intubated in ICU, on levaphed drip, pt on isolation for COVID-19, pt not examined to limit direct contact/resources of PPE, reviewed medical chart, labs, and notes. Objective - Vital Signs Vital signs: Vital Signs - 12hr 02/04/21 02/04/21 02/04/21 01:30 01:45 02:00 Temperature Pulse Rate 90 88 87 Pulse Rate [ From Monitor] Respiratory 31 H 32 H 28 H Rate Blood Pressure 101/52 111/51 106/47 O2 Sat by Pulse 91 91 92 Oximetry O2 Sat by Pulse Oximetry [ Anterior Bilateral Throughout] 02/04/21 02/04/21 02/04/21 02:15 02:30 02:45 Temperature Pulse Rate 87 87 88 Pulse Rate [ From Monitor] Respiratory 27 H 25 H 30 H Rate Blood Pressure 112/49 107/50 109/52 O2 Sat by Pulse 92 92 92 Oximetry O2 Sat by Pulse Oximetry [ Anterior Bilateral Throughout] 02/04/21 02/04/21 02/04/21 03:00 03:15 03:30 Temperature Pulse Rate 88 89 90 Pulse Rate [ From Monitor] Respiratory 29 H 27 H 30 H Rate Blood Pressure 97/48 104/47 107/47 O2 Sat by Pulse 92 92 92 Oximetry O2 Sat by Pulse Oximetry [ Anterior Bilateral Throughout] 02/04/21 02/04/21 02/04/21 03:45 04:00 04:15 Temperature 100.9 F H Pulse Rate 89 89 89 Pulse Rate [ 90 From Monitor] Respiratory 31 H 31 H 30 H Rate Blood Pressure 106/47 99/48 101/48 O2 Sat by Pulse 92 92 91 Oximetry O2 Sat by Pulse Oximetry [ Anterior Bilateral Throughout] 02/04/21 02/04/21 02/04/21 04:22 04:30 04:45 Temperature Pulse Rate 90 90 90 Pulse Rate [ From Monitor] Respiratory 30 H 31 H Rate Blood Pressure 101/48 92/46 98/47 O2 Sat by Pulse 91 91 91 Oximetry O2 Sat by Pulse Oximetry [ Anterior Bilateral Throughout] 02/04/21 02/04/21 02/04/21 05:00 05:15 05:30 Temperature Pulse Rate 93 H 93 H 93 H Pulse Rate [ From Monitor] Respiratory 23 16 15 Rate Blood Pressure 101/49 101/49 102/48 O2 Sat by Pulse 90 91 90 Oximetry O2 Sat by Pulse Oximetry [ Anterior Bilateral Throughout] 02/04/21 02/04/21 02/04/21 05:45 06:00 06:15 Temperature Pulse Rate 92 H 90 91 H Pulse Rate [ From Monitor] Respiratory 15 18 20 Rate Blood Pressure 108/49 107/51 117/47 O2 Sat by Pulse 91 90 91 Oximetry O2 Sat by Pulse Oximetry [ Anterior Bilateral Throughout] 02/04/21 02/04/21 02/04/21 06:30 06:45 07:00 Temperature Pulse Rate 92 H 92 H 93 H Pulse Rate [ From Monitor] Respiratory 17 14 19 Rate Blood Pressure 109/49 110/48 110/52 O2 Sat by Pulse 90 91 91 Oximetry O2 Sat by Pulse Oximetry [ Anterior Bilateral Throughout] 02/04/21 02/04/21 02/04/21 07:15 07:28 07:30 Temperature 100.7 F H Pulse Rate 93 H 95 H Pulse Rate [ From Monitor] Respiratory 22 20 Rate Blood Pressure 112/46 103/48 O2 Sat by Pulse 91 91 Oximetry O2 Sat by Pulse Oximetry [ Anterior Bilateral Throughout] 02/04/21 02/04/21 02/04/21 07:45 08:00 08:15 Temperature Pulse Rate 98 H 104 H 108 H Pulse Rate [ 117 H From Monitor] Respiratory 18 22 22 Rate Blood Pressure 97/52 121/58 122/59 O2 Sat by Pulse 90 89 90 Oximetry O2 Sat by Pulse Oximetry [ Anterior Bilateral Throughout] 02/04/21 02/04/21 02/04/21 08:30 08:39 08:45 Temperature Pulse Rate 115 H 114 H 114 H Pulse Rate [ From Monitor] Respiratory 26 H 21 Rate Blood Pressure 132/63 115/54 115/54 O2 Sat by Pulse 90 91 92 Oximetry O2 Sat by Pulse Oximetry [ Anterior Bilateral Throughout] 02/04/21 02/04/21 02/04/21 09:00 09:15 09:30 Temperature Pulse Rate 112 H 113 H 103 H Pulse Rate [ From Monitor] Respiratory 19 21 18 Rate Blood Pressure 101/52 103/49 103/49 O2 Sat by Pulse 91 90 90 Oximetry O2 Sat by Pulse Oximetry [ Anterior Bilateral Throughout] 02/04/21 02/04/21 02/04/21 09:45 10:00 10:15 Temperature Pulse Rate 109 H 108 H 112 H Pulse Rate [ From Monitor] Respiratory 22 24 25 H Rate Blood Pressure 95/53 100/52 104/53 O2 Sat by Pulse 89 89 89 Oximetry O2 Sat by Pulse Oximetry [ Anterior Bilateral Throughout] 02/04/21 02/04/21 02/04/21 10:30 10:45 11:00 Temperature Pulse Rate 112 H 111 H 110 H Pulse Rate [ From Monitor] Respiratory 25 H 25 H 26 H Rate Blood Pressure 103/51 106/50 96/48 O2 Sat by Pulse 90 90 90 Oximetry O2 Sat by Pulse Oximetry [ Anterior Bilateral Throughout] 02/04/21 02/04/21 02/04/21 11:16 11:30 11:45 Temperature Pulse Rate 105 H 114 H 114 H Pulse Rate [ From Monitor] Respiratory 22 17 21 Rate Blood Pressure 96/48 98/48 91/52 O2 Sat by Pulse 63 L 87 90 Oximetry O2 Sat by Pulse Oximetry [ Anterior Bilateral Throughout] 02/04/21 02/04/21 02/04/21 12:00 12:16 12:28 Temperature 100.9 F H Pulse Rate 116 H 116 H 118 H Pulse Rate [ 119 H From Monitor] Respiratory 23 26 H Rate Blood Pressure 84/54 80/53 98/52 O2 Sat by Pulse 91 92 90 Oximetry O2 Sat by Pulse 91 Oximetry [ Anterior Bilateral Throughout] 02/04/21 02/04/21 02/04/21 12:30 12:45 12:46 Temperature Pulse Rate 117 H 117 H 118 H Pulse Rate [ From Monitor] Respiratory 27 H 24 Rate Blood Pressure 98/52 105/58 105/58 O2 Sat by Pulse 89 91 Oximetry O2 Sat by Pulse Oximetry [ Anterior Bilateral Throughout] 02/04/21 02/04/21 13:00 13:15 Temperature Pulse Rate 118 H 117 H Pulse Rate [ From Monitor] Respiratory 19 Rate Blood Pressure 105/60 103/58 O2 Sat by Pulse 91 Oximetry O2 Sat by Pulse Oximetry [ Anterior Bilateral Throughout] - Lab 02/04/21 04:45 02/04/21 04:45 Most recent lab results ABG pH 7.201 (7.320-7.450) L 02/04/21 03:48 ABG pCO2 59.2 mm Hg 02/02/21 05:35 ABG pO2 72.5 mm Hg (80.0-90.0) L 02/02/21 05:35 ABG HCO3 22.3 mmol/L (20.0-26.0) 02/02/21 05:35 ABG O2 Saturation 92.2 (0-100) 02/04/21 03:48 Calcium 6.8 mg/dL (8.4-10.2) L 02/04/21 04:45 Phosphorus 8.40 mg/dL (2.5-4.5) H 02/04/21 04:45 Magnesium 2.20 mg/dL (1.7-2.3) 02/04/21 04:45 Urine Creatinine 53.0 mg/dL (0.1-20.0) H 01/30/21 12:00 Urine Sodium 28 mmol/L 01/22/21 22:39 Medications & Allergies - Medications Allergies/Adverse Reactions: Allergies No Known Allergies Allergy (Unverified 03/12/20 13:41) Home Medications: Home Medications Medication Instructions Recorded Confirmed Last Taken Type Clindamycin [Clindamycin CAP] 300 mg PO Q8H #21 cap 03/12/20 Unknown Rx Insulin NPH/Regular [Novolin 70/30] 18 unit SUB-Q TIDAC #1 vial 03/12/20 Unknown Rx Syringe-Needle,Insulin,0.5 ml 1 box MC TID #1 box 03/12/20 Unknown Rx [Insulin Syringe/Needle 0.5 ML] Active Medications: Generic Name Dose Route Start Last Admin Trade Name Freq PRN Reason Stop Dose Admin Acetaminophen 650 mg 01/23/21 02:25 Acetaminophen 650 Mg Rect Supp DC Q4H PRN Pain, Mild (1-3) Acetaminophen 650 mg 01/24/21 12:58 02/04/21 12:29 Acetaminophen 325 Mg/10.15 Ml Oral Liqd Unit Dose FEEDTUBE 650 mg Q6H PRN Administration Pain, Mild (1-3) Lipase/Protease/Amylase 1 each 01/26/21 14:25 Lipase 10,500/Protease 25,000/Amylase 43,750 (Units) Dr Cap FEEDTUBE PRN PRN For Clogged Feeding Tube Dextrose 50 ml 01/27/21 07:24 Dextrose 50% In Water (25gm) 50 Ml Syringe IV Q30MIN PRN Hypoglycemia Protocol Enoxaparin Sodium 120 mg 01/26/21 11:00 02/04/21 09:38 Enoxaparin 120 Mg/0.8 Ml Inj SUB-Q 120 mg Q24HR CECE Administration Famotidine 20 mg 01/24/21 10:00 02/04/21 09:37 Famotidine 20 Mg/2 Ml Inj IV 20 mg DAILY CECE Administration Fentanyl 50 mcg 01/22/21 22:39 Fentanyl 100 Mcg/2 Ml Inj IV Q10MIN PRN ANALGESIA Hydrophilic Ointment 1 applic 01/22/21 22:39 Lip Therapy Vaseline TP Q2HR PRN Dry Lips Fentanyl Citrate 2,000 mcg in 100 mls @ 6.124 mls/hr 01/22/21 23:00 02/04/21 13:20 Fentanyl Drip Premix IV 4 mcg/kg/hr TITR CECE 24.494 mls/hr Administration Protocol 1 MCG/KG/HR Propofol 1,000 mg in 100 mls @ 3.674 mls/hr 01/22/21 23:45 02/04/21 11:30 Diprivan 10 Mg/Ml IV 30 mcg/kg/min TITR CECE 22.045 mls/hr Titration Protocol 5 MCG/KG/MIN Norepinephrine 4 mg in 250 mls @ 7.5 mls/hr 01/28/21 14:00 02/04/21 12:33 Levophed Drip 4 Mg/Ns 250 Ml IV 8 mcg/min TITR CECE 30 mls/hr Titration Protocol 2 MCG/MIN Dexmedetomidine HCl 1,000 mcg/ 260 mls @ 6.368 mls/hr 01/30/21 20:00 02/04/21 11:29 Sodium Chloride IV 1.4 mcg/kg/hr TITRATE CECE 44.579 mls/hr Administration Protocol 0.2 MCG/KG/HR Cefepime HCl 2 gm in 100 mls @ 200 mls/hr 02/02/21 22:00 02/03/21 21:16 Cefepime/Ns 2 Gm/100 Ml IV 02/05/21 23:59 200 mls/hr QHS CECE Administration Sodium Chloride 100 mls @ 999 mls/hr 02/04/21 13:00 Nacl 0.9% IV [place] PRN Hypotension Multi-Ingred Cream/Lotion/Oil/Oint 1 applic 01/22/21 22:39 02/01/21 09:33 Mineral Oil/Petrolatum, White Ophth Oint 3.5 Gm OU 1 applic Q4HR PRN Administration Dry Eye(s) Ondansetron HCl 4 mg 01/23/21 02:17 Ondansetron 4 Mg/2 Ml Inj IV Q8H PRN Nausea And Vomiting Simple Syrup 15 ml 01/26/21 14:25 Simple Syrup 15 Ml FEEDTUBE PRN PRN Hypoglycemia Simple Syrup 30 ml 01/26/21 14:25 Simple Syrup 15 Ml FEEDTUBE PRN PRN Hypoglycemia Sodium Bicarbonate 325 mg 01/26/21 14:25 Sodium Bicarbonate 325 Mg Tab FEEDTUBE PRN PRN For Clogged Feeding Tube
--- NOTE | 2021-02-04 15:02 | Progress Note ---
Assessment and Plan Assessment and plan: -CCM, nephrology, infectious disease consulted, appreciate recommendations -Antibiotic therapy -COVID-19 PCR positive, Pneumonia on CXR -Steroid therapy, s/p remdesivir -Mechanical ventilation, wean as tolerated -VAP bundle -HD per nephrology -Trend BMP -S/p MIVF -Bilateral lower extremity Doppler ultrasound negative for DVT/SVT -Therapeutic Lovenox -SSI -Long-acting insulin -Accu-Cheks every 6 while on tube feedings -Hold home antihypertensive regimen for now as he is still needing vasopressor support -Blood pressure monitoring per protocol DVT/GI prophylaxis: SCDs to bilateral lower extremities while in bed, heparin subcu, PPI Dispo: ICU The high probability of a clinically significant, sudden or life threatening deterioration of the [multi] system(s) required my full and direct attention, intervention and personal management. The aggregate critical care time was [32] minutes. This time is in addition to time spent performing reported procedures but includes the following: [x] Data Review and interpretation [x] Patient assessment and monitoring of vital signs [x] Documentation [x] Medication orders and management History Interval history: This is a 60-year-old male with diabetes mellitus, hypertension, hyperlipidemia, chronic renal insufficiency presents to the emergency department on 01/23 with shortness of breath, fevers chills, loss of smell and taste and body aches for the past 3 days via EMS. Per EMS patient's oxygen saturation on room air was 50% and after being placed on nonrebreather it increased 75%. Upon arrival to the emergency department patient was being bagged by EMS. In the emergency room patient was intubated due to severe hypoxia, increased work of breathing and lethargy. Patient was sedated on propofol and fentanyl. Patient presented with fever, tachycardia, tachypnea and acute hypoxic respiratory failure with PNA on CXR meeting Sepsis criteria. Lab work in the emergency department revealed hyponatremia, hypokalemia, hypochloremia, elevated CR/BUN and CXR showed bilateral pneumonia. Patient was admitted to the hospital service as a COVID-19 PUI with consults to infectious disease, nephrology and critical care medicine. Sepsis COVID-19 pneumonia Bilateral pneumonia Acute hypoxic respiratory failure Acute kidney injury, HD initiated 02/03 Hypernatremia Hyperchloremia Hyperkalemia Metabolic acidosis Hyperphosphatemia Diabetes mellitus Hypertension Hyperlipidemia Chronic renal insufficiency Elevated D-dimer 01/24/2021: Patient is intubated and sedated, patient is positive for COVID-19 i nfection. ID was consulted and put on dexamethasone and remdesivir. Patient has DEISI and nephrology is following. Creatinine stable, patient is urinating. Discussed with nephrology and he is okay with remdesivir. Pulmonary critical care is following for his vent setting. PEEP of 8 and FiO2 of 85%. Patient was alert and off sedatives. 01/25/2021; patient is intubated and on mechanical ventilation. Continue with treatment of Covid. Nephrology and ID is following. Pulmonary is following for vent management 01/26: Remains on mechanical ventilation and [facility] increased his PEEP. [facility] has ord ered Precedex for sedation. Possibly need to prone this p.m. No acute events reported overnight. This morning his D-dimer is greater than 10,000 and we have started him on Lovenox 120 mg daily. Nutrition has been consulted for initiation of tube feedings. Patient remains sedated on propofol 40 and fentanyl for the time my examination this morning. 01/27: Continue Lovenox, remdesivir and empiric antibiotics. Patient had a T-max of 101 overnight. The time of examination patient is on CMV 500/18/14/0.61. Kidney function slightly worsened. Sedated on fentanyl ground-level fall and Precedex. Nephrology has increased IV fluids to 100 ml/hr. Continue to trend BMP and CBC. Sedation vacation attempt by RN this AM. 01/28: Patient completed antibiotics today [facility] will paralyze patient and increase sedation. PICC line ordered for possible vasopressor therapy need. Patient's D-dimer remains greater than 10,000 and he still has hyperchloremia. Patient's kidney function has improved today. May need to prone the patient if no improvement in oxygenation is noted in the next 24 hours. The time of my examination patient is sedated with propofol, fentanyl and Precedex and is on assist control 500/18/16/0.80 hypoxic on ABG on 60% FiO2. 01/29: Patient was started on Nimbex yesterday and his ABG this morning showed respiratory acidosis with hypercapnia and his respiratory rate was increased. We will obtain a repeat ABG this afternoon. This morning patient is hypernatremic, hyperkalemic and hyperchloremic. His potassium has been corrected with the management and will obtain repeat BMP tomorrow. His kidney functions have remained stable and we will await nephrology's input. No acute events reported overnight. This morning the time my examination patient sedated with propofol, Precedex and fentanyl and paralyzed with Nimbex. He is on assist control 500/24/16 0.80. 01/30: This morning patient is hypokalemic again and was given Kayexalate. Patient has hypernatremia and hyper chloremia and his renal function is slightly worse after receiving Lasix yesterday. His D-dimer remains greater than 10,000 and he is still on a paralytic. Patient is sedated on Precedex, fentanyl, propofol. Mechanical ventilation settings seven-point //28. [facility] has decided to continue paralytics for 48 more hours and will attempt proning the patient. Increased free water flushes 300 cc every 4 hours. Patient states has restarted his antibiotics cefepime and vancomycin and recultured. 01/31/21 Hyperkalemia Treated 02/01/21 Hyperkalemia Treated 02/02: Patient's kidney function continues to worsen and a stat BMP this morning shows BUN/creatinine 20/6.1 and he remains hypocalcemic and hypernatremic, hypokalemic and hypochloremic. Patient received 2 g of calcium gluconate and Kayexalate and his repeat potassium was 4.3 this afternoon. He remains antibiotic therapy and steroids. Nephrology has placed the patient on bicarb drip given metabolic acidosis and has decided to hold off hemodialysis till tomorrow.The time my examination patient is sedated on fentanyl, Precedex and on assist control 500/20/12/0.70. s/p paralytic. 02/03: Today patient's ABG shows respiratory acidosis however it is improving, hypernatremia, hyperchloremia, metabolic acidosis on BMP, worsening kidney funct ion BUN/creatinine 130/9.2 with hyperphosphatemia. Patient received a Vas-Cath to his right IJ for initiation of dialysis. At the time of my examination patient remains sedated on fentanyl, propofol and Precedex with vasopressor support with Levophed at 2. 02/04: At the time of examination patient was on assist control tidal volume 500, rate 40, PEEP of 12, FiO2 85%. Patient had a T-max of 100.9 and infectious disease has stopped his vancomycin given negative MRSA. This afternoon patient respiked his temperature and was pancultured again. Patient was started on hemodialysis yesterday and will receive HD again today. Patient is sedated on Precedex, propofol, fentanyl and remains on Levophed. He is on assist control tidal volume 500, rate of 30, PEEP of 12, FiO2 of 85%. Patient still has some respiratory acidosis however his hypernatremia and hyperchloremia have improved and his metabolic acidosis has resolved. Patient will receive hemodialysis today Hospitalist Physical - Constitutional Vitals: Temp Pulse Resp BP Pulse Ox 100.9 F H 112 H 27 H 115/60 90 02/04/21 12:00 02/04/21 14:45 02/04/21 14:30 02/04/21 14:45 02/04/21 14:30 General appearance: Present: no acute distress, well-nourished, other (Sedated on mechanical ventilation) - EENT Eyes: Present: PERRL ENT: dentition normal - Neck Neck: Present: normal ROM - Respiratory Respiratory effort: normal Respiratory: bilateral: diminished - Cardiovascular Rhythm: regular Heart Sounds: Present: S1 & S2. Absent: systolic murmur, diastolic murmur - Extremities Extremities: no ischemia, pulses intact, pulses symmetrical, normal temperature, normal color Extremity abnormal: edema Peripheral Pulses: within normal limits - Abdominal General gastrointestinal: soft, non-tender, non-distended, normal bowel sounds - Integumentary Integumentary: Present: warm, dry - Psychiatric Psychiatric: other (sedated) - Neurologic Neurologic: other (sedated) HEART Score - HEART Score Risk factors: 1-2 risk factors Troponin: < normal limit - Critical Actions Critical Actions: 0-3 pts:0.9-1.7%risk of adverse cardiac event.Candidate for discharge Results - Labs CBC & Chem 7: 02/04/21 04:45 02/04/21 04:45 Labs: Laboratory Last Values WBC 7.4 K/mm3 (4.5-11.0) 02/04/21 04:45 RBC 2.75 M/mm3 (3.65-5.03) L 02/04/21 04:45 Hgb 9.1 gm/dl (11.8-15.2) L 02/04/21 04:45 Hct 26.9 % (35.5-45.6) L 02/04/21 04:45 MCV 98 fl (84-94) H 02/04/21 04:45 MCH 33 pg (28-32) H 02/04/21 04:45 MCHC 34 % (32-34) 02/04/21 04:45 RDW 14.8 % (13.2-15.2) 02/04/21 04:45 Plt Count 177 K/mm3 (140-440) 02/04/21 04:45 Lymph % (Auto) 6.8 % (13.4-35.0) L 02/04/21 04:45 [place] % (Auto) 3.5 % (0.0-7.3) 02/04/21 04:45 Eos % (Auto) 1.9 % (0.0-4.3) 02/04/21 04:45 Baso % (Auto) 0.6 % (0.0-1.8) 02/04/21 04:45 Lymph # (Auto) 0.5 K/mm3 (1.2-5.4) L 02/04/21 04:45 [place] # (Auto) 0.3 K/mm3 (0.0-0.8) 02/04/21 04:45 Eos # (Auto) 0.1 K/mm3 (0.0-0.4) 02/04/21 04:45 Baso # (Auto) 0.0 K/mm3 (0.0-0.1) 02/04/21 04:45 Add Manual Diff Complete 01/30/21 05:00 Total Counted 100 01/30/21 05:00 Seg Neutrophils % 87.2 % (40.0-70.0) H 02/04/21 04:45 Seg Neuts % (Manual) 97.0 % (40.0-70.0) H 01/30/21 05:00 Band Neutrophils % 1.0 % 01/27/21 05:29 Lymphocytes % (Manual) 1.0 % (13.4-35.0) L 01/30/21 05:00 Reactive Lymphs % (Man) 1.0 % 01/27/21 05:29 Monocytes % (Manual) 2.0 % (0.0-7.3) 01/30/21 05:00 Eosinophils % (Manual) 2.0 % (0.0-4.3) 01/24/21 05:05 Nucleated RBC % Not Reportable 01/30/21 05:00 Seg Neutrophils # 6.5 K/mm3 (1.8-7.7) 02/04/21 04:45 Seg Neutrophils # Man 8.6 K/mm3 (1.8-7.7) H 01/30/21 05:00 Band Neutrophils # 0.0 K/mm3 01/30/21 05:00 Lymphocytes # (Manual) 0.1 K/mm3 (1.2-5.4) L 01/30/21 05:00 Abs React Lymphs (Man) 0.0 K/mm3 01/30/21 05:00 Monocytes # (Manual) 0.2 K/mm3 (0.0-0.8) 01/30/21 05:00 Eosinophils # (Manual) 0.0 K/mm3 (0.0-0.4) 01/30/21 05:00 Basophils # (Manual) 0.0 K/mm3 (0.0-0.1) 01/30/21 05:00 Metamyelocytes # 0.0 K/mm3 01/30/21 05:00 Myelocytes # 0.0 K/mm3 01/30/21 05:00 Promyelocytes # 0.0 K/mm3 01/30/21 05:00 Blast Cells # 0.0 K/mm3 01/30/21 05:00 WBC Morphology Not Reportable 01/30/21 05:00 Hypersegmented Neuts Not Reportable 01/30/21 05:00 Hyposegmented Neuts Not Reportable 01/30/21 05:00 Hypogranular Neuts Not Reportable 01/30/21 05:00 Smudge Cells Not Reportable 01/30/21 05:00 Toxic Granulation Not Reportable 01/30/21 05:00 Toxic Vacuolation Not Reportable 01/30/21 05:00 Dohle Bodies Not Reportable 01/30/21 05:00 Pelger-Huet Anomaly Not Reportable 01/30/21 05:00 Fátima Rods Not Reportable 01/30/21 05:00 Platelet Estimate Consistent w auto 01/30/21 05:00 Clumped Platelets Not Reportable 01/30/21 05:00 Plt Clumps, EDTA Not Reportable 01/30/21 05:00 Large Platelets Not Reportable 01/30/21 05:00 Giant Platelets Not Reportable 01/30/21 05:00 Platelet Satelliting Not Reportable 01/30/21 05:00 Plt Morphology Comment Not Reportable 01/30/21 05:00 RBC Morphology Not Reportable 01/30/21 05:00 Dimorphic RBCs Not Reportable 01/30/21 05:00 Polychromasia Not Reportable 01/30/21 05:00 Hypochromasia Not Reportable 01/30/21 05:00 Poikilocytosis Not Reportable 01/30/21 05:00 Anisocytosis Not Reportable 01/30/21 05:00 Microcytosis Not Reportable 01/30/21 05:00 Macrocytosis Not Reportable 01/30/21 05:00 Spherocytes Not Reportable 01/30/21 05:00 Pappenheimer Bodies Not Reportable 01/30/21 05:00 Sickle Cells Not Reportable 01/30/21 05:00 Target Cells Not Reportable 01/30/21 05:00 Tear Drop Cells Not Reportable 01/30/21 05:00 Ovalocytes Not Reportable 01/30/21 05:00 Helmet Cells Not Reportable 01/30/21 05:00 [place] Bodies Not Reportable 01/30/21 05:00 [place] Rings Not Reportable 01/30/21 05:00 [place] Cells Not Reportable 01/30/21 05:00 Bite Cells Not Reportable 01/30/21 05:00 Crenated Cell Not Reportable 01/30/21 05:00 Elliptocytes Not Reportable 01/30/21 05:00 Acanthocytes (Spur) Not Reportable 01/30/21 05:00 Rouleaux Not Reportable 01/30/21 05:00 Hemoglobin C Crystals Not Reportable 01/30/21 05:00 Schistocytes Not Reportable 01/30/21 05:00 Malaria parasites Not Reportable 01/30/21 05:00 [place] Bodies Not Reportable 01/30/21 05:00 Hem Pathologist Commnt No 01/30/21 05:00 D-Dimer > 67803 ng/mlDDU (0-234) H 01/30/21 04:00 ABG pH 7.201 (7.320-7.450) L 02/04/21 03:48 POC ABG pCO2 54.5 mmHg (32.0-48.0) H 02/04/21 03:48 ABG pCO2 59.2 mm Hg 02/02/21 05:35 POC ABG pO2 74.0 mmHg (83-108) L 02/04/21 03:48 ABG pO2 72.5 mm Hg (80.0-90.0) L 02/02/21 05:35 POC ABG HCO3 20.9 02/04/21 03:48 ABG HCO3 22.3 mmol/L (20.0-26.0) 02/02/21 05:35 ABG O2 Saturation 92.2 (0-100) 02/04/21 03:48 ABG O2 Content 7.7 (0.0-44) 02/02/21 05:35 POC ABG Base Excess -7.1 02/04/21 03:48 ABG Base Excess -5.3 mmol/L (-2.0-3.0) L 02/02/21 05:35 ABG Hemoglobin 9.7 (12.0-17.5) L 02/04/21 03:48 ABG Oxyhemoglobin 91.1 (94-98) L 02/04/21 03:48 ABG Carboxyhemoglobin 1.7 % (0.0-5.0) 02/02/21 05:35 ABG Methemoglobin 0.2 (0.0-1.5) 02/04/21 03:48 ABG Sodium 146.2 mmol/L (136.0-145.0) H 02/04/21 03:48 ABG Potassium 4.2 mmol/L (3.40-4.50) 02/04/21 03:48 ABG Chloride 114.0 mmol/L (98-107) H 02/04/21 03:48 ABG Glucose 155 mg/dL (65-95) H 02/04/21 03:48 Oxyhemoglobin 89.1 % (95.0-99.0) L 02/02/21 05:35 Carboxyhemoglobin 1 (0.5-1.5) 02/04/21 03:48 FiO2 70 % 02/02/21 05:35 FiO2 % 85 02/04/21 03:48 Sodium 149 mmol/L (137-145) H 02/04/21 04:45 Potassium 4.3 mmol/L (3.6-5.0) 02/04/21 04:45 Chloride 111.5 mmol/L (98-107) H 02/04/21 04:45 Carbon Dioxide 22 mmol/L (22-30) 02/04/21 04:45 Anion Gap 20 mmol/L 02/04/21 04:45 BUN 99 mg/dL (9-20) H 02/04/21 04:45 Creatinine 8.5 mg/dL (0.8-1.3) H 02/04/21 04:45 Estimated GFR 8 ml/min 02/04/21 04:45 BUN/Creatinine Ratio 12 % 02/04/21 04:45 Glucose 139 mg/dL (75-100) H 02/04/21 04:45 POC Glucose 129 mg/dL (70-105) H 02/04/21 11:44 Hemoglobin A1c 6.3 % (4-6) H 02/02/21 16:00 Lactic Acid 1.90 mmol/L (0.7-2.0) 01/24/21 14:38 Calcium 6.8 mg/dL (8.4-10.2) L 02/04/21 04:45 Phosphorus 8.40 mg/dL (2.5-4.5) H 02/04/21 04:45 Magnesium 2.20 mg/dL (1.7-2.3) 02/04/21 04:45 Ferritin 763.9 ng/mL (30.0-300.0) H 01/30/21 04:00 Total Bilirubin 1.50 mg/dL (0.1-1.2) H 01/26/21 05:47 AST 37 units/L (5-40) 01/26/21 05:47 ALT 29 units/L (7-56) 01/26/21 05:47 Alkaline Phosphatase 70 units/L (35-129) 01/26/21 05:47 Lactate Dehydrogenase 424 units/L (91-180) H 01/30/21 04:00 C-Reactive Protein 23.90 mg/dL (0.00-1.30) H 01/30/21 04:00 Total Protein 7.2 g/dL (6.3-8.2) 01/26/21 05:47 Albumin 2.2 g/dL (3.9-5) L 01/26/21 05:47 Albumin/Globulin Ratio 0.4 % 01/26/21 05:47 Triglycerides 293 mg/dL (2-149) H 01/30/21 06:00 Procalcitonin 0.92 ng/mL (<0.15) 01/22/21 22:57 Arterial Blood Glucose 155 mg/dL (65-95) H 02/04/21 03:48 Arterial Blood Ionized Calcium 3.9 mg/dL (4.6-5.3) L 02/04/21 03:48 Urine Color Nehal (Yellow) 01/22/21 22:39 Urine Turbidity Cloudy (Clear) 01/22/21 22:39 Urine pH 5.0 (5.0-7.0) 01/22/21 22:39 Ur Specific [place] 1.017 (1.003-1.030) 01/22/21 22:39 Urine Protein 100 mg/dl mg/dL (Negative) 01/22/21 22:39 Urine Glucose (UA) Neg mg/dL (Negative) 01/22/21 22:39 Urine Ketones Neg mg/dL (Negative) 01/22/21 22:39 Urine Blood Mod (Negative) 01/22/21 22:39 Urine Nitrite Neg (Negative) 01/22/21 22:39 Urine Bilirubin Neg (Negative) 01/22/21 22:39 Urine Urobilinogen 2.0 mg/dL (<2.0) 01/22/21 22:39 Ur Leukocyte Esterase Mod (Negative) 01/22/21 22:39 Urine WBC (Auto) < 1.0 /HPF (0.0-6.0) 01/22/21 22:39 Urine RBC (Auto) < 1.0 /HPF (0.0-6.0) 01/22/21 22:39 U Epithel Cells (Auto) < 1.0 /HPF (0-13.0) 01/22/21 22:39 Urine Osmolality 416 Mosm/kg 01/30/21 12:15 Urine Total Volume 2300 ml 01/30/21 12:00 Urine Creatinine 53.0 mg/dL (0.1-20.0) H 01/30/21 12:00 Ur Creatinine 24 Hour 1.2 (0.8-2.8) 01/30/21 12:00 Urine Sodium 28 mmol/L 01/22/21 22:39 Nasal Screen MRSA (PCR) Negative (Negative) 02/02/21 13:20 Random Vancomycin 13.2 ug/mL (0-40.0) 02/04/21 04:45 Coronavirus (PCR) Positive (Negative) A 01/23/21 08:41 Hepatitis A IgM Ab Non-reactive (NonReactive) 02/03/21 Unknown Hep Bs Antigen Non-reactive (Negative) 02/03/21 Unknown Hep B Core IgM Ab Non-reactive (NonReactive) 02/03/21 Unknown Hepatitis C Antibody Non-reactive (NonReactive) 02/03/21 Unknown Microbiology: Microbiology 01/30/21 15:29 Peripheral/Venous Blood Culture - Preliminary NO GROWTH AFTER 4 DAYS 01/30/21 15:29 Peripheral/Venous Blood Culture - Preliminary NO GROWTH AFTER 4 DAYS Black/IV: Voiding Method Indwelling Catheter Active Medications - Current Medications Current Medications: Generic Name Dose Route Start Last Admin Trade Name Freq PRN Reason Stop Dose Admin Acetaminophen 650 mg 01/23/21 02:25 Acetaminophen 650 Mg Rect Supp PA Q4H PRN Pain, Mild (1-3) Acetaminophen 650 mg 01/24/21 12:58 02/04/21 12:29 Acetaminophen 325 Mg/10.15 Ml Oral Liqd Unit Dose FEEDTUBE 650 mg Q6H PRN Administration Pain, Mild (1-3) Lipase/Protease/Amylase 1 each 01/26/21 14:25 Lipase 10,500/Protease 25,000/Amylase 43,750 (Units) Dr Claudio FEEDTUBE PRN PRN For Clogged Feeding Tube Dextrose 50 ml 01/27/21 07:24 Dextrose 50% In Water (25gm) 50 Ml Syringe IV Q30MIN PRN Hypoglycemia Protocol Enoxaparin Sodium 120 mg 01/26/21 11:00 02/04/21 09:38 Enoxaparin 120 Mg/0.8 Ml Inj SUB-Q 120 mg Q24HR CECE Administration Famotidine 20 mg 01/24/21 10:00 02/04/21 09:37 Famotidine 20 Mg/2 Ml Inj IV 20 mg DAILY CECE Administration Fentanyl 50 mcg 01/22/21 22:39 Fentanyl 100 Mcg/2 Ml Inj IV Q10MIN PRN ANALGESIA Hydrophilic Ointment 1 applic 01/22/21 22:39 Lip Therapy Vaseline TP Q2HR PRN Dry Lips Fentanyl Citrate 2,000 mcg in 100 mls @ 6.124 mls/hr 01/22/21 23:00 02/04/21 13:20 Fentanyl Drip Premix IV 4 mcg/kg/hr TITR CECE 24.494 mls/hr Administration Protocol 1 MCG/KG/HR Propofol 1,000 mg in 100 mls @ 3.674 mls/hr 01/22/21 23:45 02/04/21 11:30 Diprivan 10 Mg/Ml IV 30 mcg/kg/min TITR CECE 22.045 mls/hr Titration Protocol 5 MCG/KG/MIN Norepinephrine 4 mg in 250 mls @ 7.5 mls/hr 01/28/21 14:00 02/04/21 12:33 Levophed Drip 4 Mg/Ns 250 Ml IV 8 mcg/min TITR CECE 30 mls/hr Titration Protocol 2 MCG/MIN Dexmedetomidine HCl 1,000 mcg/ 260 mls @ 6.368 mls/hr 01/30/21 20:00 02/04/21 11:29 Sodium Chloride IV 1.4 mcg/kg/hr TITRATE CECE 44.579 mls/hr Administration Protocol 0.2 MCG/KG/HR Cefepime HCl 2 gm in 100 mls @ 200 mls/hr 02/02/21 22:00 02/03/21 21:16 Cefepime/Ns 2 Gm/100 Ml IV 02/05/21 23:59 200 mls/hr QHS CECE Administration Sodium Chloride 100 mls @ 999 mls/hr 02/04/21 13:00 Nacl 0.9% IV [place] PRN Hypotension Multi-Ingred Cream/Lotion/Oil/Oint 1 applic 01/22/21 22:39 02/01/21 09:33 Mineral Oil/Petrolatum, White Ophth Oint 3.5 Gm OU 1 applic Q4HR PRN Administration Dry Eye(s) Ondansetron HCl 4 mg 01/23/21 02:17 Ondansetron 4 Mg/2 Ml Inj IV Q8H PRN Nausea And Vomiting Simple Syrup 15 ml 01/26/21 14:25 Simple Syrup 15 Ml FEEDTUBE PRN PRN Hypoglycemia Simple Syrup 30 ml 01/26/21 14:25 Simple Syrup 15 Ml FEEDTUBE PRN PRN Hypoglycemia Sodium Bicarbonate 325 mg 01/26/21 14:25 Sodium Bicarbonate 325 Mg Tab FEEDTUBE PRN PRN For Clogged Feeding Tube Nutrition/Malnutrition Assess - Dietary Evaluation Nutrition/Malnutrition Findings: Nutrition Notes Start: 01/26/21 13:59 Freq: Status: Active Protocol: Document 02/02/21 12:09 CW (Rec: 02/02/21 12:19 CW [id number]) Nutrition Notes Initial or Follow up Reassessment Current Diagnosis Acute Kidney Injury,Diabetes, Sepsis,Hypertension, Respiratory Failure, Hyperlipidemia Other Pertinent Diagnosis COVID-19 (+), bilat pneu Current Diet TF - Nepro at 30 ml/hr Labs/Tests Na 155 K 5.1 BG 238 BUN 90 Cr 6.1 Pertinent Medications propofol at 33.067 ml/hr decadron Height 5 ft 8 in Weight 131.7 kg [place] Body Weight (kg) 70.00 BMI 44.1 Weight change and time frame weight gain likely d/t need for HD Weight Status Morbidly Obese Subjective/Other Information F/U for propofol, proning, vent status and weight. MD noted that pt likely to start HD soon. Weight gain likely r/ t fluid overload. Pt remains on vent. TF running at 50 ml/ hr d/t proning procedures. TF well tolerated at this time. Per RN TF has been flushed at 300 ml q4h x 48 hr. Burn Absent Trauma Absent GI Symptoms None Difficulty In Swallowing Skin Integrity/Comment Intact Current % PO Negligible Minimum of two criteria No physical signs of malnutrition #1 Nutrition Diagnosis Inadequate oral intake Diagnosis Progress(for reassessment Continues documentation) Is patient on ventilator? Yes Is Patient Ambulatory and/or Out of Bed No REE-([facility]-confined to bed) 2514.168 Kcal/Kg value to use for calculation 14 Approximate Energy Requirements Using 1844 kcal/Kg Calculation Used for Recommendations Kcal/kg Additional Notes Pro needs 0.8-1.2g/kg adjBW: 77-115g/day Fluid needs per MD Nutrition Intervention Change Diet Order: Continue TF rate Increase flush to 300 ml q4h Nutrition Support: Continuous TF: Nepro at 30ml/ hr with 300ml water flush q4h for hypernatremia, Once resolve resume flush of 150 ml q4h. (Propofol providing 873 kcal) When proning: Proned position: Nepro at 20ml /hr x 12 hr with 100ml water flush q4h. Supine position: Nepro at 50ml /hr x 12hr with 300ml water flush q4h for hypernatremia, Once resolve resume flush of 200 ml q4h. Kcal 1,296 Protein (gm) 58 Fluid (mL) 523 Goal #1 TF tolerance Goal #2 TF to meet at least 75% energy and pro needs Anticipated Discharge Needs: unable to determine at this time Follow-Up By: 02/05/21 Additional Comments F/U proning, propofol, POC (HD ), vent status
[2021-02-04] MEDS: CEFEPIME/NS 2 GM/100 ML 2 GM/100 ML BAG IV SCH (21:35)
[2021-02-05] MEDS: fentaNYL DRIP Premix 2,000 MCG/100 ML BAG IV SCH ×6 (01:37→21:38)
[2021-02-05 02:32] LABS: Basophils % (Auto) 0.5 % (0.0-1.8); Eosinophils % (Auto) 1.5 % (0.0-4.3); Hematocrit 23.6 % (35.5-45.6); Hemoglobin 8.3 gm/dl (11.8-15.2); Lymphocytes % (Auto) 8.4 % (13.4-35.0); Mean Corpuscular HGB Conc 35 % (32-34); Mean Corpuscular Volume 97 fl (84-94); Monocytes % (Auto) 3.5 % (0.0-7.3); Platelet Count 137 K/mm3 (140-440); Red Blood Count 2.43 M/mm3 (3.65-5.03); Red Cell Distribution Width 14.4 % (13.2-15.2)
[2021-02-05 02:33] LABS: Eosinophils # (Auto) 0.1 K/mm3 (0.0-0.4); Lymphocytes # (Auto) 0.6 K/mm3 (1.2-5.4); Monocytes # (Auto) 0.2 K/mm3 (0.0-0.8)
[2021-02-05] MEDS: ACETAMINOPHEN 325 MG/10.15 ML ORAL LIQD UNIT DOSE FEEDTUBE PRN ×2 (03:14→22:06)
[2021-02-05] MEDS ORDERED: SODIUM BICARB 8.4% 50 MEQ/50 ML SYRINGE IV ONE (04:41)
[2021-02-05] MEDS: dexmedeTOMIDine 1,000 MCG in SODIUM CHLORIDE 0.9% 250ML 250 ML IV SCH ×3 (05:39→18:02)
[2021-02-05] MEDS: NORepinephrine/NS 4 MG-250 ML 4 MG/250 ML BAG IV SCH ×2 (08:00→22:06)
--- NOTE | 2021-02-05 08:49 | Progress Note ---
Assessment and Plan Acute Hypoxic respiratory failure COVID-19 PNA Severe sepsis with septic shock Acute kidney injury secondary to ATN Hyperkalemia Hypernatremia DM2 on insulin Plan: HD again today for gentle UF and clearance Assess need for HD on daily basis Initiated on HD on 02/03/21 s/p Right IJ Trialysis dialysis catheter placement by Dr Reddy BMP is pending On free water flushes to 400 ml Q4hrs for hypernatremia Strict I&O Renally dose meds Carlton Pitts MD [phone] Subjective Date of service: 02/05/21 Principal diagnosis: DEISI Interval history: on isolation for COVID-19, cont to be anuric Objective - Vital Signs Vital signs: Vital Signs - 12hr 02/04/21 02/04/21 02/04/21 21:00 21:16 21:30 Temperature Pulse Rate 110 H 110 H 110 H Pulse Rate [ From Monitor] Respiratory 26 H 25 H 25 H Rate Blood Pressure 111/58 111/58 113/56 O2 Sat by Pulse 92 93 93 Oximetry 02/04/21 02/04/21 02/04/21 21:46 22:00 22:16 Temperature Pulse Rate 109 H 112 H 112 H Pulse Rate [ From Monitor] Respiratory 26 H 24 25 H Rate Blood Pressure 117/54 114/51 114/51 O2 Sat by Pulse 93 92 92 Oximetry 02/04/21 02/04/21 02/04/21 22:30 22:46 23:00 Temperature Pulse Rate 113 H 112 H 110 H Pulse Rate [ From Monitor] Respiratory 27 H 25 H 26 H Rate Blood Pressure 114/52 119/56 99/53 O2 Sat by Pulse 92 92 92 Oximetry 02/04/21 02/04/21 02/04/21 23:16 23:26 23:30 Temperature Pulse Rate 107 H 108 H 110 H Pulse Rate [ From Monitor] Respiratory 25 H 22 26 H Rate Blood Pressure 99/53 109/53 109/53 O2 Sat by Pulse 93 93 93 Oximetry 02/04/21 02/05/21 02/05/21 23:46 00:00 00:16 Temperature 100.4 F H Pulse Rate 110 H 108 H 107 H Pulse Rate [ 111 H From Monitor] Respiratory 25 H 27 H 26 H Rate Blood Pressure 114/54 121/54 121/54 O2 Sat by Pulse 93 93 93 Oximetry 02/05/21 02/05/21 02/05/21 00:30 00:46 01:00 Temperature Pulse Rate 106 H 106 H 105 H Pulse Rate [ From Monitor] Respiratory 25 H 27 H 26 H Rate Blood Pressure 116/58 128/56 123/55 O2 Sat by Pulse 93 92 93 Oximetry 02/05/21 02/05/21 02/05/21 01:07 01:16 01:30 Temperature Pulse Rate 105 H 104 H 103 H Pulse Rate [ From Monitor] Respiratory 25 H 26 H Rate Blood Pressure 123/55 123/55 122/53 O2 Sat by Pulse 92 92 93 Oximetry 02/05/21 02/05/21 02/05/21 01:46 02:00 02:16 Temperature Pulse Rate 102 H 104 H 106 H Pulse Rate [ From Monitor] Respiratory 26 H 27 H 25 H Rate Blood Pressure 117/53 113/53 113/53 O2 Sat by Pulse 93 92 92 Oximetry 02/05/21 02/05/21 02/05/21 02:30 02:46 03:00 Temperature Pulse Rate 107 H 108 H 107 H Pulse Rate [ From Monitor] Respiratory 26 H 26 H 28 H Rate Blood Pressure 117/58 114/52 109/54 O2 Sat by Pulse 92 93 93 Oximetry 02/05/21 02/05/21 02/05/21 03:16 03:30 03:46 Temperature Pulse Rate 104 H 103 H 102 H Pulse Rate [ From Monitor] Respiratory 28 H 27 H 25 H Rate Blood Pressure 109/54 110/52 106/52 O2 Sat by Pulse 93 92 92 Oximetry 02/05/21 02/05/21 02/05/21 04:00 04:16 04:30 Temperature Pulse Rate 100 H 98 H 100 H Pulse Rate [ 111 H From Monitor] Respiratory 28 H 29 H 26 H Rate Blood Pressure 102/49 106/52 110/55 O2 Sat by Pulse 92 92 92 Oximetry 02/05/21 02/05/21 02/05/21 04:44 04:46 05:00 Temperature Pulse Rate 103 H 102 H 102 H Pulse Rate [ From Monitor] Respiratory 25 H 24 Rate Blood Pressure 113/53 110/55 123/63 O2 Sat by Pulse 93 93 93 Oximetry 02/05/21 02/05/21 02/05/21 05:16 05:30 05:46 Temperature Pulse Rate 106 H 104 H 100 H Pulse Rate [ From Monitor] Respiratory 28 H 27 H 26 H Rate Blood Pressure 123/63 127/53 129/53 O2 Sat by Pulse 91 93 93 Oximetry 02/05/21 02/05/21 02/05/21 06:00 06:16 06:30 Temperature Pulse Rate 100 H 98 H 99 H Pulse Rate [ From Monitor] Respiratory 27 H 26 H 26 H Rate Blood Pressure 117/51 117/51 113/50 O2 Sat by Pulse 93 92 92 Oximetry 02/05/21 02/05/21 02/05/21 06:46 07:00 08:26 Temperature Pulse Rate 101 H 97 H 92 H Pulse Rate [ From Monitor] Respiratory 22 26 H Rate Blood Pressure 104/53 113/50 120/52 O2 Sat by Pulse 92 92 94 Oximetry - Lab 02/05/21 01:50 02/04/21 04:45 Most recent lab results ABG pH 7.202 (7.320-7.450) L 02/05/21 03:44 ABG pCO2 59.2 mm Hg 02/02/21 05:35 ABG pO2 72.5 mm Hg (80.0-90.0) L 02/02/21 05:35 ABG HCO3 22.3 mmol/L (20.0-26.0) 02/02/21 05:35 ABG O2 Saturation 91 (0-100) 02/05/21 03:44 Calcium 6.8 mg/dL (8.4-10.2) L 02/04/21 04:45 Phosphorus 5.60 mg/dL (2.5-4.5) H D 02/05/21 01:50 Magnesium 2.20 mg/dL (1.7-2.3) 02/04/21 04:45 Urine Creatinine 53.0 mg/dL (0.1-20.0) H 01/30/21 12:00 Urine Sodium 28 mmol/L 01/22/21 22:39 Medications & Allergies - Medications Allergies/Adverse Reactions: Allergies No Known Allergies Allergy (Unverified 03/12/20 13:41) Home Medications: Home Medications Medication Instructions Recorded Confirmed Last Taken Type Clindamycin [Clindamycin CAP] 300 mg PO Q8H #21 cap 03/12/20 Unknown Rx Insulin NPH/Regular [Novolin 70/30] 18 unit SUB-Q TIDAC #1 vial 03/12/20 Unknown Rx Syringe-Needle,Insulin,0.5 ml 1 box MC TID #1 box 03/12/20 Unknown Rx [Insulin Syringe/Needle 0.5 ML] Active Medications: Generic Name Dose Route Start Last Admin Trade Name Freq PRN Reason Stop Dose Admin Acetaminophen 650 mg 01/23/21 02:25 Acetaminophen 650 Mg Rect Supp MA Q4H PRN Pain, Mild (1-3) Acetaminophen 650 mg 01/24/21 12:58 02/05/21 03:14 Acetaminophen 325 Mg/10.15 Ml Oral Liqd Unit Dose FEEDTUBE 650 mg Q6H PRN Administration Pain, Mild (1-3) Lipase/Protease/Amylase 1 each 01/26/21 14:25 Lipase 10,500/Protease 25,000/Amylase 43,750 (Units) Dr Cap FEEDTUBE PRN PRN For Clogged Feeding Tube Dextrose 50 ml 01/27/21 07:24 Dextrose 50% In Water (25gm) 50 Ml Syringe IV Q30MIN PRN Hypoglycemia Protocol Enoxaparin Sodium 120 mg 01/26/21 11:00 02/04/21 09:38 Enoxaparin 120 Mg/0.8 Ml Inj SUB-Q 120 mg Q24HR CECE Administration Famotidine 20 mg 01/24/21 10:00 02/04/21 09:37 Famotidine 20 Mg/2 Ml Inj IV 20 mg DAILY CECE Administration Fentanyl 50 mcg 01/22/21 22:39 Fentanyl 100 Mcg/2 Ml Inj IV Q10MIN PRN ANALGESIA Hydrophilic Ointment 1 applic 01/22/21 22:39 Lip Therapy Vaseline TP Q2HR PRN Dry Lips Fentanyl Citrate 2,000 mcg in 100 mls @ 6.124 mls/hr 01/22/21 23:00 02/05/21 05:39 Fentanyl Drip Premix IV 4 mcg/kg/hr TITR CECE 24.494 mls/hr Administration Protocol 1 MCG/KG/HR Propofol 1,000 mg in 100 mls @ 3.674 mls/hr 01/22/21 23:45 02/05/21 05:40 Diprivan 10 Mg/Ml IV 10 mcg/kg/min TITR CECE 7.348 mls/hr Administration Protocol 5 MCG/KG/MIN Norepinephrine 4 mg in 250 mls @ 7.5 mls/hr 01/28/21 14:00 02/05/21 08:00 Levophed Drip 4 Mg/Ns 250 Ml IV 4 mcg/min TITR CECE 15 mls/hr Administration Protocol 2 MCG/MIN Dexmedetomidine HCl 1,000 mcg/ 260 mls @ 6.368 mls/hr 01/30/21 20:00 02/05/21 05:39 Sodium Chloride IV 1.4 mcg/kg/hr TITRATE CECE 44.579 mls/hr Administration Protocol 0.2 MCG/KG/HR Cefepime HCl 2 gm in 100 mls @ 200 mls/hr 02/02/21 22:00 02/04/21 21:35 Cefepime/Ns 2 Gm/100 Ml IV 02/05/21 23:59 200 mls/hr QHS CECE Administration Sodium Chloride 100 mls @ 999 mls/hr 02/04/21 13:00 Nacl 0.9% IV [place] PRN Hypotension Multi-Ingred Cream/Lotion/Oil/Oint 1 applic 01/22/21 22:39 02/01/21 09:33 Mineral Oil/Petrolatum, White Ophth Oint 3.5 Gm OU 1 applic Q4HR PRN Administration Dry Eye(s) Ondansetron HCl 4 mg 01/23/21 02:17 Ondansetron 4 Mg/2 Ml Inj IV Q8H PRN Nausea And Vomiting Simple Syrup 15 ml 01/26/21 14:25 Simple Syrup 15 Ml FEEDTUBE PRN PRN Hypoglycemia Simple Syrup 30 ml 01/26/21 14:25 Simple Syrup 15 Ml FEEDTUBE PRN PRN Hypoglycemia Sodium Bicarbonate 325 mg 01/26/21 14:25 Sodium Bicarbonate 325 Mg Tab FEEDTUBE PRN PRN For Clogged Feeding Tube
[2021-02-05] MEDS: FAMOTIDINE 20 MG/2 ML INJ IV SCH (09:26)
[2021-02-05] MEDS: ENOXAPARIN 120 MG/0.8 ML INJ SUB-Q SCH (09:27)
[2021-02-05 10:08] LABS: Calcium 6.3 mg/dL (8.4-10.2)
--- NOTE | 2021-02-05 11:14 | Progress Note ---
Assessment and Plan 60 y/o male with ARDS secondary most likely to COVID 19 pneumonia. 02/05/21: WIll increase PEEP to 16. Can increase pressors if needed for BP control during HD. Follow up cultures. If negative will scan legs and arms again for VTE. Repeat ABG at 1400 today. Will speak with sister and Girlfriend on phone today. 02/04/21: HD again today per renal notes. Likely will need daily HD. New fevers. Will draw blood and urine cultures if able to still make urine.. Repeat CXR. May need to check dopplers if all of those studies are negative. Wean FIO2 as tolerated. Unable to tolerate proning. Guarded to poor prognosis. 02/03/21: HD today per renal. Wean FiO2 as tolerated. No further proning as patient cannot tolerate it, however with volume removal, may consider in the future. Use pressors to keep MAPs 65 and greater for HD purporses so volume can be removed. (IJ was wide open (filled with blood)) with patient sitting up at 45 degrees. Guarded prognosis. 02/02/21: After renal speaks with family, will place vascath today. Agree with bicarb drip but will order some pushes now to help with pH. Overall prognosis is very very guarded to poor now that patient is COVID positive and requiring renal replacement therapy. Mortality is very high in these patients. Continue steroid therapy. Unable to tolerate proning. 01/30/21: Will plan for proning later today. Goal will be at least 12hrs but long is okay. Speaking with pharmacy to see if we can get paralytic for a longer period of time. Regardless will prone. Continue heavy sedation. BP stable. Continue steroids. Very very guarded prognosis. 01/29/21: will increase tidal volume and/or increase respiratory rate. Repeat ABG this afternoon. Continue paralytic and adequate sedation. Continue steroid and remdesivir, follow up any renal recs. Prognosis remains guarded. Wean Fio2 for sats >88% 01/28/21: Increased PEEP to 16. Will paralyze patient today and increase sedation. Ordering picc line for possible vasopressor therapy needs. Continue BID steroids. Renal function is slightly better today with fluids but could be making oxygenation worse. Not able to diurese. Still making urine. Continue Remdesivir. Watch for fever curve. If not improvement in the next 24 hours with paralyzing, will prone tomorrow morning. 01/27/21: Continue PEEP at 14. No weaning until FiO2 is at or below 40-45%. Continue anticoagulation. Getting Remdesivir now. Continue BID steroids. Renal has increased the fluids. Monitor urine output and renal function. Overall prognosis is very very guarded, especially if renal status worsens. 01/26/21: Increase PEEP to 14. Will add Precedex therapy. If patient does not respond to increases in PEEP may need to prone. Will place patient on lovenox and will feed patient. Remdesivir coming. Continue BID steroids. Prognosis is guarded. 01/25/21: Hold on proning today. Continue BID steroids. ABG this AM was adequate. Pending abg tomorrow, may increase PEEP if not able to wean FiO2 any further. Per charting Remdesivir to arrive tomorrow. Guarded prognosis. 01/24/21: Continue BID steroids. No abg done this am but able to wean FiO2. Will obtain ABG in the am. Hold on proning for right now. Renal following, would like to diurese but they are given fluids for deisi. Agree with ID assessmen t and note. Guarded prognosis. 1. Increase steroids to BID given size 2. Check with ID to see if he is a candidate for remdesivir or any other experiemental therapy 3. Hold on proning for right now 4. Renal consulted and giving IVF's currently Guarded prognosis. CCT 31 minutes. Subjective Date of service: 02/05/21 Principal diagnosis: DEISI Interval history: Continues to spike low grade temps. Cultures pending. Already on abx therapy. Getting HD again today. Oxygen requirement still very high and CO2 levels are increasing. Objective Vital Signs - 12hr 02/04/21 02/04/21 02/04/21 23:16 23:26 23:30 Temperature Pulse Rate 107 H 108 H 110 H Pulse Rate [ From Monitor] Respiratory 25 H 22 26 H Rate Blood Pressure 99/53 109/53 109/53 O2 Sat by Pulse 93 93 93 Oximetry 02/04/21 02/05/21 02/05/21 23:46 00:00 00:16 Temperature 100.4 F H Pulse Rate 110 H 108 H 107 H Pulse Rate [ 111 H From Monitor] Respiratory 25 H 27 H 26 H Rate Blood Pressure 114/54 121/54 121/54 O2 Sat by Pulse 93 93 93 Oximetry 02/05/21 02/05/21 02/05/21 00:30 00:46 01:00 Temperature Pulse Rate 106 H 106 H 105 H Pulse Rate [ From Monitor] Respiratory 25 H 27 H 26 H Rate Blood Pressure 116/58 128/56 123/55 O2 Sat by Pulse 93 92 93 Oximetry 02/05/21 02/05/21 02/05/21 01:07 01:16 01:30 Temperature Pulse Rate 105 H 104 H 103 H Pulse Rate [ From Monitor] Respiratory 25 H 26 H Rate Blood Pressure 123/55 123/55 122/53 O2 Sat by Pulse 92 92 93 Oximetry 02/05/21 02/05/21 02/05/21 01:46 02:00 02:16 Temperature Pulse Rate 102 H 104 H 106 H Pulse Rate [ From Monitor] Respiratory 26 H 27 H 25 H Rate Blood Pressure 117/53 113/53 113/53 O2 Sat by Pulse 93 92 92 Oximetry 02/05/21 02/05/21 02/05/21 02:30 02:46 03:00 Temperature Pulse Rate 107 H 108 H 107 H Pulse Rate [ From Monitor] Respiratory 26 H 26 H 28 H Rate Blood Pressure 117/58 114/52 109/54 O2 Sat by Pulse 92 93 93 Oximetry 02/05/21 02/05/21 02/05/21 03:16 03:30 03:46 Temperature Pulse Rate 104 H 103 H 102 H Pulse Rate [ From Monitor] Respiratory 28 H 27 H 25 H Rate Blood Pressure 109/54 110/52 106/52 O2 Sat by Pulse 93 92 92 Oximetry 02/05/21 02/05/21 02/05/21 04:00 04:16 04:30 Temperature Pulse Rate 100 H 98 H 100 H Pulse Rate [ 111 H From Monitor] Respiratory 28 H 29 H 26 H Rate Blood Pressure 102/49 106/52 110/55 O2 Sat by Pulse 92 92 92 Oximetry 02/05/21 02/05/21 02/05/21 04:44 04:46 05:00 Temperature Pulse Rate 103 H 102 H 102 H Pulse Rate [ From Monitor] Respiratory 25 H 24 Rate Blood Pressure 113/53 110/55 123/63 O2 Sat by Pulse 93 93 93 Oximetry 02/05/21 02/05/21 02/05/21 05:16 05:30 05:46 Temperature Pulse Rate 106 H 104 H 100 H Pulse Rate [ From Monitor] Respiratory 28 H 27 H 26 H Rate Blood Pressure 123/63 127/53 129/53 O2 Sat by Pulse 91 93 93 Oximetry 02/05/21 02/05/21 02/05/21 06:00 06:16 06:30 Temperature Pulse Rate 100 H 98 H 99 H Pulse Rate [ From Monitor] Respiratory 27 H 26 H 26 H Rate Blood Pressure 117/51 117/51 113/50 O2 Sat by Pulse 93 92 92 Oximetry 02/05/21 02/05/21 02/05/21 06:46 07:00 07:16 Temperature Pulse Rate 101 H 97 H 95 H Pulse Rate [ From Monitor] Respiratory 22 26 H 27 H Rate Blood Pressure 104/53 113/50 87/51 O2 Sat by Pulse 92 92 92 Oximetry 02/05/21 02/05/21 02/05/21 07:30 07:45 08:00 Temperature 98.5 F Pulse Rate 93 H 95 H 92 H Pulse Rate [ 92 H From Monitor] Respiratory 25 H 25 H 25 H Rate Blood Pressure 79/49 156/76 127/55 O2 Sat by Pulse 92 93 93 Oximetry 02/05/21 02/05/21 02/05/21 08:15 08:26 08:30 Temperature Pulse Rate 92 H 92 H 95 H Pulse Rate [ From Monitor] Respiratory 25 H 22 Rate Blood Pressure 120/52 120/52 113/70 O2 Sat by Pulse 94 94 96 Oximetry 02/05/21 02/05/21 02/05/21 08:45 09:00 09:15 Temperature Pulse Rate 94 H 93 H 92 H Pulse Rate [ From Monitor] Respiratory 23 25 H 23 Rate Blood Pressure 111/52 109/50 101/48 O2 Sat by Pulse 95 95 95 Oximetry 02/05/21 02/05/21 02/05/21 09:30 09:45 10:00 Temperature Pulse Rate 92 H 89 88 Pulse Rate [ From Monitor] Respiratory 30 H 23 23 Rate Blood Pressure 108/63 115/59 98/48 O2 Sat by Pulse 95 94 93 Oximetry 02/05/21 10:15 Temperature Pulse Rate 87 Pulse Rate [ From Monitor] Respiratory 23 Rate Blood Pressure 106/49 O2 Sat by Pulse 93 Oximetry Constitutional: comatose Eyes: non-icteric ENT: other (orally intubated and sedated) Neck: supple Effort: mildly labored Ascultation: Bilateral: clear Percussion: Bilateral: not dull Cardiovascular: regular rate and rhythm Gastrointestinal: normoactive bowel sounds CBC and BMP: 02/05/21 01:50 02/05/21 09:15 ABG, PT/INR, D-dimer: ABG ABG pH 7.202 (7.320-7.450) L 02/05/21 03:44 POC ABG pCO2 63.7 mmHg (32.0-48.0) H 02/05/21 03:44 ABG pCO2 59.2 mm Hg 02/02/21 05:35 POC ABG pO2 69.0 mmHg (83-108) L 02/05/21 03:44 ABG pO2 72.5 mm Hg (80.0-90.0) L 02/02/21 05:35 POC ABG HCO3 24.4 02/05/21 03:44 ABG O2 Saturation 91 (0-100) 02/05/21 03:44 PT/INR, D-dimer D-Dimer > 01724 ng/mlDDU (0-234) H 01/30/21 04:00 Abnormal lab findings: Abnormal Labs 01/22/21 01/22/21 01/22/21 22:39 22:57 22:57 WBC RBC Hgb Hct MCV MCH MCHC RDW Plt Count Lymph % (Auto) 6.6 L Lymph # (Auto) 0.5 L Seg Neutrophils % 87.6 H Seg Neuts % (Manual) Lymphocytes % (Manual) Seg Neutrophils # Man Lymphocytes # (Manual) D-Dimer ABG pH POC ABG pCO2 POC ABG pO2 ABG pO2 ABG HCO3 ABG O2 Saturation ABG Base Excess ABG Hemoglobin ABG Oxyhemoglobin ABG Sodium ABG Potassium ABG Chloride ABG Glucose Oxyhemoglobin Carboxyhemoglobin Sodium 129 L Potassium 3.4 L Chloride 90.4 L Carbon Dioxide BUN 34 H Creatinine 1.5 H Glucose 146 H POC Glucose Hemoglobin A1c Lactic Acid Calcium 7.8 L Phosphorus Magnesium Ferritin Total Bilirubin AST 75 H ALT 57 H Lactate Dehydrogenase C-Reactive Protein Albumin 2.9 L Triglycerides Arterial Blood Glucose Arterial Blood Ionized Calcium Urine Creatinine 301.2 H Coronavirus (PCR) 01/22/21 01/22/21 01/22/21 22:57 22:57 22:57 WBC RBC Hgb Hct MCV MCH MCHC RDW Plt Count Lymph % (Auto) Lymph # (Auto) Seg Neutrophils % Seg Neuts % (Manual) Lymphocytes % (Manual) Seg Neutrophils # Man Lymphocytes # (Manual) D-Dimer 1173.89 H ABG pH POC ABG pCO2 POC ABG pO2 ABG pO2 ABG HCO3 ABG O2 Saturation ABG Base Excess ABG Hemoglobin ABG Oxyhemoglobin ABG Sodium ABG Potassium ABG Chloride ABG Glucose Oxyhemoglobin Carboxyhemoglobin Sodium Potassium Chloride Carbon Dioxide BUN Creatinine Glucose 149 H POC Glucose Hemoglobin A1c Lactic Acid 2.10 H* Calcium Phosphorus Magnesium Ferritin Total Bilirubin AST ALT Lactate Dehydrogenase 685 H C-Reactive Protein 30.40 H Albumin Triglycerides Arterial Blood Glucose Arterial Blood Ionized Calcium Urine Creatinine Coronavirus (PCR) 01/22/21 01/23/21 01/23/21 22:57 08:41 10:01 WBC RBC Hgb Hct MCV MCH MCHC RDW Plt Count Lymph % (Auto) Lymph # (Auto) Seg Neutrophils % Seg Neuts % (Manual) Lymphocytes % (Manual) Seg Neutrophils # Man Lymphocytes # (Manual) D-Dimer ABG pH POC ABG pCO2 POC ABG pO2 ABG pO2 ABG HCO3 ABG O2 Saturation ABG Base Excess ABG Hemoglobin ABG Oxyhemoglobin ABG Sodium ABG Potassium ABG Chloride ABG Glucose Oxyhemoglobin Carboxyhemoglobin Sodium 131 L Potassium Chloride 88.7 L Carbon Dioxide 18 L BUN 36 H Creatinine 1.6 H Glucose 147 H POC Glucose Hemoglobin A1c Lactic Acid Calcium 7.5 L Phosphorus Magnesium Ferritin 1207.0 H Total Bilirubin AST ALT Lactate Dehydrogenase C-Reactive Protein Albumin Triglycerides Arterial Blood Glucose Arterial Blood Ionized Calcium Urine Creatinine Coronavirus (PCR) Positive A 01/23/21 01/23/21 01/24/21 20:49 Unknown 00:10 WBC RBC Hgb Hct MCV MCH MCHC RDW Plt Count Lymph % (Auto) Lymph # (Auto) Seg Neutrophils % Seg Neuts % (Manual) Lymphocytes % (Manual) Seg Neutrophils # Man Lymphocytes # (Manual) D-Dimer ABG pH POC ABG pCO2 POC ABG pO2 ABG pO2 165.4 H ABG HCO3 ABG O2 Saturation ABG Base Excess -2.5 L ABG Hemoglobin ABG Oxyhemoglobin ABG Sodium ABG Potassium ABG Chloride ABG Glucose Oxyhemoglobin Carboxyhemoglobin Sodium 130 L Potassium Chloride 91.0 L Carbon Dioxide 20 L BUN 52 H Creatinine 3.8 H D Glucose 150 H POC Glucose 125 H Hemoglobin A1c Lactic Acid Calcium 8.0 L Phosphorus Magnesium Ferritin Total Bilirubin AST 42 H ALT Lactate Dehydrogenase C-Reactive Protein Albumin 2.4 L Triglycerides Arterial Blood Glucose Arterial Blood Ionized Calcium Urine Creatinine Coronavirus (PCR) 01/24/21 01/24/21 01/24/21 05:05 05:05 05:05 WBC 14.0 H RBC Hgb Hct MCV 95 H MCH 33 H MCHC RDW Plt Count Lymph % (Auto) Lymph # (Auto) Seg Neutrophils % Seg Neuts % (Manual) 91.0 H Lymphocytes % (Manual) 4.0 L Seg Neutrophils # Man 12.7 H Lymphocytes # (Manual) 0.6 L D-Dimer 6159.48 H ABG pH POC ABG pCO2 POC ABG pO2 ABG pO2 ABG HCO3 ABG O2 Saturation ABG Base Excess ABG Hemoglobin ABG Oxyhemoglobin ABG Sodium ABG Potassium ABG Chloride ABG Glucose Oxyhemoglobin Carboxyhemoglobin Sodium Potassium Chloride Carbon Dioxide BUN Creatinine Glucose POC Glucose Hemoglobin A1c Lactic Acid Calcium Phosphorus Magnesium Ferritin 1178.0 H Total Bilirubin AST ALT Lactate Dehydrogenase C-Reactive Protein Albumin Triglycerides Arterial Blood Glucose Arterial Blood Ionized Calcium Urine Creatinine Coronavirus (PCR) 01/24/21 01/24/21 01/24/21 05:05 05:05 05:05 WBC RBC Hgb Hct MCV MCH MCHC RDW Plt Count Lymph % (Auto) Lymph # (Auto) Seg Neutrophils % Seg Neuts % (Manual) Lymphocytes % (Manual) Seg Neutrophils # Man Lymphocytes # (Manual) D-Dimer ABG pH POC ABG pCO2 POC ABG pO2 ABG pO2 ABG HCO3 ABG O2 Saturation ABG Base Excess ABG Hemoglobin ABG Oxyhemoglobin ABG Sodium ABG Potassium ABG Chloride ABG Glucose Oxyhemoglobin Carboxyhemoglobin Sodium 132 L Potassium Chloride 93.1 L Carbon Dioxide 21 L BUN 57 H Creatinine 3.7 H Glucose 133 H POC Glucose Hemoglobin A1c Lactic Acid 2.20 H* Calcium 7.7 L Phosphorus Magnesium Ferritin Total Bilirubin AST ALT Lactate Dehydrogenase 658 H C-Reactive Protein 33.20 H Albumin 2.4 L Triglycerides Arterial Blood Glucose Arterial Blood Ionized Calcium Urine Creatinine Coronavirus (PCR) 01/24/21 01/24/21 01/24/21 05:34 06:00 17:35 WBC RBC Hgb Hct MCV MCH MCHC RDW Plt Count Lymph % (Auto) Lymph # (Auto) Seg Neutrophils % Seg Neuts % (Manual) Lymphocytes % (Manual) Seg Neutrophils # Man Lymphocytes # (Manual) D-Dimer ABG pH POC ABG pCO2 POC ABG pO2 ABG pO2 ABG HCO3 ABG O2 Saturation ABG Base Excess ABG Hemoglobin ABG Oxyhemoglobin ABG Sodium ABG Potassium ABG Chloride ABG Glucose Oxyhemoglobin Carboxyhemoglobin Sodium Potassium Chloride Carbon Dioxide BUN Creatinine Glucose POC Glucose 136 H 137 H Hemoglobin A1c Lactic Acid Calcium Phosphorus Magnesium 2.80 H Ferritin Total Bilirubin AST ALT Lactate Dehydrogenase C-Reactive Protein Albumin Triglycerides Arterial Blood Glucose Arterial Blood Ionized Calcium Urine Creatinine Coronavirus (PCR) 01/25/21 01/25/21 01/25/21 04:15 05:40 05:40 WBC RBC Hgb Hct MCV 95 H MCH 33 H MCHC 35 H RDW Plt Count Lymph % (Auto) Lymph # (Auto) Seg Neutrophils % Seg Neuts % (Manual) 95.0 H Lymphocytes % (Manual) 3.0 L Seg Neutrophils # Man 7.8 H Lymphocytes # (Manual) 0.2 L D-Dimer ABG pH POC ABG pCO2 POC ABG pO2 63.2 L ABG pO2 ABG HCO3 ABG O2 Saturation ABG Base Excess ABG Hemoglobin ABG Oxyhemoglobin 89.6 L ABG Sodium ABG Potassium ABG Chloride ABG Glucose 165 H Oxyhemoglobin Carboxyhemoglobin 0.3 L Sodium Potassium Chloride Carbon Dioxide BUN 67 H Creatinine 3.4 H Glucose 153 H POC Glucose Hemoglobin A1c Lactic Acid Calcium 7.5 L Phosphorus Magnesium Ferritin Total Bilirubin 1.40 H AST 62 H ALT Lactate Dehydrogenase C-Reactive Protein Albumin 2.6 L Triglycerides Arterial Blood Glucose 165 H Arterial Blood Ionized Calcium 4.3 L Urine Creatinine Coronavirus (PCR) 01/25/21 01/25/21 01/25/21 05:59 12:00 17:17 WBC RBC Hgb Hct MCV MCH MCHC RDW Plt Count Lymph % (Auto) Lymph # (Auto) Seg Neutrophils % Seg Neuts % (Manual) Lymphocytes % (Manual) Seg Neutrophils # Man Lymphocytes # (Manual) D-Dimer ABG pH POC ABG pCO2 POC ABG pO2 ABG pO2 ABG HCO3 ABG O2 Saturation ABG Base Excess ABG Hemoglobin ABG Oxyhemoglobin ABG Sodium ABG Potassium ABG Chloride ABG Glucose Oxyhemoglobin Carboxyhemoglobin Sodium Potassium Chloride Carbon Dioxide BUN Creatinine Glucose POC Glucose 140 H 143 H 149 H Hemoglobin A1c Lactic Acid Calcium Phosphorus Magnesium Ferritin Total Bilirubin AST ALT Lactate Dehydrogenase C-Reactive Protein Albumin Triglycerides Arterial Blood Glucose Arterial Blood Ionized Calcium Urine Creatinine Coronavirus (PCR) 01/25/21 01/26/21 01/26/21 23:41 03:43 05:46 WBC RBC Hgb Hct MCV MCH MCHC RDW Plt Count Lymph % (Auto) Lymph # (Auto) Seg Neutrophils % Seg Neuts % (Manual) Lymphocytes % (Manual) Seg Neutrophils # Man Lymphocytes # (Manual) D-Dimer ABG pH POC ABG pCO2 POC ABG pO2 70.0 L ABG pO2 ABG HCO3 ABG O2 Saturation ABG Base Excess ABG Hemoglobin ABG Oxyhemoglobin 91.9 L ABG Sodium ABG Potassium ABG Chloride 109.0 H ABG Glucose 165 H Oxyhemoglobin Carboxyhemoglobin Sodium Potassium Chloride Carbon Dioxide BUN Creatinine Glucose POC Glucose 132 H 161 H Hemoglobin A1c Lactic Acid Calcium Phosphorus Magnesium Ferritin Total Bilirubin AST ALT Lactate Dehydrogenase C-Reactive Protein Albumin Triglycerides Arterial Blood Glucose 165 H Arterial Blood Ionized Calcium 4.5 L Urine Creatinine Coronavirus (PCR) 01/26/21 01/26/21 01/26/21 05:47 05:47 05:47 WBC RBC Hgb Hct 35.3 L MCV 96 H MCH 33 H MCHC RDW Plt Count Lymph % (Auto) Lymph # (Auto) Seg Neutrophils % Seg Neuts % (Manual) 96.0 H Lymphocytes % (Manual) 2.0 L Seg Neutrophils # Man Lymphocytes # (Manual) 0.1 L D-Dimer > 16331 H ABG pH POC ABG pCO2 POC ABG pO2 ABG pO2 ABG HCO3 ABG O2 Saturation ABG Base Excess ABG Hemoglobin ABG Oxyhemoglobin ABG Sodium ABG Potassium ABG Chloride ABG Glucose Oxyhemoglobin Carboxyhemoglobin Sodium Potassium Chloride Carbon Dioxide BUN 57 H Creatinine 2.2 H Glucose 185 H POC Glucose Hemoglobin A1c Lactic Acid Calcium 8.1 L Phosphorus Magnesium Ferritin Total Bilirubin AST ALT Lactate Dehydrogenase C-Reactive Protein Albumin Triglycerides Arterial Blood Glucose Arterial Blood Ionized Calcium Urine Creatinine Coronavirus (PCR) 01/26/21 01/26/21 01/26/21 05:47 05:47 05:47 WBC RBC Hgb Hct MCV MCH MCHC RDW Plt Count Lymph % (Auto) Lymph # (Auto) Seg Neutrophils % Seg Neuts % (Manual) Lymphocytes % (Manual) Seg Neutrophils # Man Lymphocytes # (Manual) D-Dimer ABG pH POC ABG pCO2 POC ABG pO2 ABG pO2 ABG HCO3 ABG O2 Saturation ABG Base Excess ABG Hemoglobin ABG Oxyhemoglobin ABG Sodium ABG Potassium ABG Chloride ABG Glucose Oxyhemoglobin Carboxyhemoglobin Sodium Potassium Chloride 107.1 H Carbon Dioxide BUN 56 H Creatinine 2.2 H Glucose 188 H POC Glucose Hemoglobin A1c Lactic Acid Calcium 8.0 L Phosphorus Magnesium Ferritin 1178.0 H Total Bilirubin 1.50 H AST ALT Lactate Dehydrogenase 588 H C-Reactive Protein 40.10 H Albumin 2.2 L Triglycerides Arterial Blood Glucose Arterial Blood Ionized Calcium Urine Creatinine Coronavirus (PCR) 01/26/21 01/26/21 01/26/21 11:34 18:17 23:20 WBC RBC Hgb Hct MCV MCH MCHC RDW Plt Count Lymph % (Auto) Lymph # (Auto) Seg Neutrophils % Seg Neuts % (Manual) Lymphocytes % (Manual) Seg Neutrophils # Man Lymphocytes # (Manual) D-Dimer ABG pH POC ABG pCO2 POC ABG pO2 ABG pO2 ABG HCO3 ABG O2 Saturation ABG Base Excess ABG Hemoglobin ABG Oxyhemoglobin ABG Sodium ABG Potassium ABG Chloride ABG Glucose Oxyhemoglobin Carboxyhemoglobin Sodium Potassium Chloride Carbon Dioxide BUN Creatinine Glucose POC Glucose 129 H 205 H 155 H Hemoglobin A1c Lactic Acid Calcium Phosphorus Magnesium Ferritin Total Bilirubin AST ALT Lactate Dehydrogenase C-Reactive Protein Albumin Triglycerides Arterial Blood Glucose Arterial Blood Ionized Calcium Urine Creatinine Coronavirus (PCR) 01/27/21 01/27/21 01/27/21 02:45 05:29 05:29 WBC RBC 3.58 L Hgb 11.7 L Hct 34.9 L MCV 97 H MCH 33 H MCHC RDW Plt Count Lymph % (Auto) Lymph # (Auto) Seg Neutrophils % Seg Neuts % (Manual) 88.0 H Lymphocytes % (Manual) 7.0 L Seg Neutrophils # Man Lymphocytes # (Manual) 0.5 L D-Dimer ABG pH 7.319 L POC ABG pCO2 50.7 H POC ABG pO2 63.0 L ABG pO2 ABG HCO3 ABG O2 Saturation ABG Base Excess ABG Hemoglobin ABG Oxyhemoglobin ABG Sodium 145.2 H ABG Potassium 5.1 H ABG Chloride 114.0 H ABG Glucose 178 H Oxyhemoglobin Carboxyhemoglobin Sodium Potassium Chloride Carbon Dioxide BUN Creatinine Glucose POC Glucose Hemoglobin A1c Lactic Acid Calcium Phosphorus Magnesium 4.00 H Ferritin Total Bilirubin AST ALT Lactate Dehydrogenase C-Reactive Protein Albumin Triglycerides Arterial Blood Glucose 178 H Arterial Blood Ionized Calcium Urine Creatinine Coronavirus (PCR) 01/27/21 01/27/21 01/27/21 05:29 05:29 05:31 WBC RBC Hgb Hct MCV MCH MCHC RDW Plt Count Lymph % (Auto) Lymph # (Auto) Seg Neutrophils % Seg Neuts % (Manual) Lymphocytes % (Manual) Seg Neutrophils # Man Lymphocytes # (Manual) D-Dimer ABG pH POC ABG pCO2 POC ABG pO2 ABG pO2 ABG HCO3 ABG O2 Saturation ABG Base Excess ABG Hemoglobin ABG Oxyhemoglobin ABG Sodium ABG Potassium ABG Chloride ABG Glucose Oxyhemoglobin Carboxyhemoglobin Sodium Potassium 5.2 H Chloride 109.6 H Carbon Dioxide BUN 67 H Creatinine 2.8 H Glucose 195 H POC Glucose 176 H Hemoglobin A1c Lactic Acid Calcium 7.9 L Phosphorus Magnesium Ferritin Total Bilirubin AST ALT Lactate Dehydrogenase C-Reactive Protein Albumin Triglycerides 160 H Arterial Blood Glucose Arterial Blood Ionized Calcium Urine Creatinine Coronavirus (PCR) 01/27/21 01/27/21 01/27/21 11:27 18:08 23:30 WBC RBC Hgb Hct MCV MCH MCHC RDW Plt Count Lymph % (Auto) Lymph # (Auto) Seg Neutrophils % Seg Neuts % (Manual) Lymphocytes % (Manual) Seg Neutrophils # Man Lymphocytes # (Manual) D-Dimer ABG pH POC ABG pCO2 POC ABG pO2 ABG pO2 ABG HCO3 ABG O2 Saturation ABG Base Excess ABG Hemoglobin ABG Oxyhemoglobin ABG Sodium ABG Potassium ABG Chloride ABG Glucose Oxyhemoglobin Carboxyhemoglobin Sodium Potassium Chloride Carbon Dioxide BUN Creatinine Glucose POC Glucose 189 H 212 H 175 H Hemoglobin A1c Lactic Acid Calcium Phosphorus Magnesium Ferritin Total Bilirubin AST ALT Lactate Dehydrogenase C-Reactive Protein Albumin Triglycerides Arterial Blood Glucose Arterial Blood Ionized Calcium Urine Creatinine Coronavirus (PCR) 01/28/21 01/28/21 01/28/21 03:58 04:00 04:00 WBC RBC Hgb Hct MCV MCH MCHC RDW Plt Count Lymph % (Auto) Lymph # (Auto) Seg Neutrophils % Seg Neuts % (Manual) Lymphocytes % (Manual) Seg Neutrophils # Man Lymphocytes # (Manual) D-Dimer > 51615 H ABG pH POC ABG pCO2 POC ABG pO2 52.9 L ABG pO2 ABG HCO3 ABG O2 Saturation ABG Base Excess ABG Hemoglobin ABG Oxyhemoglobin 84.1 L ABG Sodium 148.9 H ABG Potassium ABG Chloride 117.0 H ABG Glucose 194 H Oxyhemoglobin Carboxyhemoglobin Sodium Potassium Chloride Carbon Dioxide BUN Creatinine Glucose POC Glucose Hemoglobin A1c Lactic Acid Calcium Phosphorus Magnesium Ferritin Total Bilirubin AST ALT Lactate Dehydrogenase 679 H C-Reactive Protein 17.10 H Albumin Triglycerides Arterial Blood Glucose 194 H Arterial Blood Ionized Calcium Urine Creatinine Coronavirus (PCR) 01/28/21 01/28/21 01/28/21 04:00 05:00 06:00 WBC RBC 3.59 L Hgb 11.6 L Hct 34.8 L MCV 97 H MCH MCHC RDW Plt Count Lymph % (Auto) Lymph # (Auto) Seg Neutrophils % Seg Neuts % (Manual) 96.0 H Lymphocytes % (Manual) 3.0 L Seg Neutrophils # Man Lymphocytes # (Manual) 0.2 L D-Dimer ABG pH POC ABG pCO2 POC ABG pO2 ABG pO2 ABG HCO3 ABG O2 Saturation ABG Base Excess ABG Hemoglobin ABG Oxyhemoglobin ABG Sodium ABG Potassium ABG Chloride ABG Glucose Oxyhemoglobin Carboxyhemoglobin Sodium Potassium Chloride Carbon Dioxide BUN Creatinine Glucose POC Glucose 159 H Hemoglobin A1c Lactic Acid Calcium Phosphorus Magnesium Ferritin 798.0 H Total Bilirubin AST ALT Lactate Dehydrogenase C-Reactive Protein Albumin Triglycerides Arterial Blood Glucose Arterial Blood Ionized Calcium Urine Creatinine Coronavirus (PCR) 01/28/21 01/28/21 01/28/21 06:00 06:00 08:12 WBC RBC Hgb Hct MCV MCH MCHC RDW Plt Count Lymph % (Auto) Lymph # (Auto) Seg Neutrophils % Seg Neuts % (Manual) Lymphocytes % (Manual) Seg Neutrophils # Man Lymphocytes # (Manual) D-Dimer ABG pH POC ABG pCO2 POC ABG pO2 ABG pO2 ABG HCO3 ABG O2 Saturation ABG Base Excess ABG Hemoglobin ABG Oxyhemoglobin ABG Sodium ABG Potassium ABG Chloride ABG Glucose Oxyhemoglobin Carboxyhemoglobin Sodium Potassium Chloride 111.9 H Carbon Dioxide BUN 59 H Creatinine 2.2 H Glucose 189 H POC Glucose 181 H Hemoglobin A1c Lactic Acid Calcium 8.1 L Phosphorus Magnesium 3.20 H Ferritin Total Bilirubin AST ALT Lactate Dehydrogenase C-Reactive Protein Albumin Triglycerides Arterial Blood Glucose Arterial Blood Ionized Calcium Urine Creatinine Coronavirus (PCR) 01/28/21 01/28/21 01/28/21 12:03 16:43 23:51 WBC RBC Hgb Hct MCV MCH MCHC RDW Plt Count Lymph % (Auto) Lymph # (Auto) Seg Neutrophils % Seg Neuts % (Manual) Lymphocytes % (Manual) Seg Neutrophils # Man Lymphocytes # (Manual) D-Dimer ABG pH POC ABG pCO2 POC ABG pO2 ABG pO2 ABG HCO3 ABG O2 Saturation ABG Base Excess ABG Hemoglobin ABG Oxyhemoglobin ABG Sodium ABG Potassium ABG Chloride ABG Glucose Oxyhemoglobin Carboxyhemoglobin Sodium Potassium Chloride Carbon Dioxide BUN Creatinine Glucose POC Glucose 164 H 198 H 196 H Hemoglobin A1c Lactic Acid Calcium Phosphorus Magnesium Ferritin Total Bilirubin AST ALT Lactate Dehydrogenase C-Reactive Protein Albumin Triglycerides Arterial Blood Glucose Arterial Blood Ionized Calcium Urine Creatinine Coronavirus (PCR) 01/29/21 01/29/21 01/29/21 05:00 05:23 06:00 WBC RBC Hgb Hct MCV MCH MCHC RDW Plt Count Lymph % (Auto) Lymph # (Auto) Seg Neutrophils % Seg Neuts % (Manual) Lymphocytes % (Manual) Seg Neutrophils # Man Lymphocytes # (Manual) D-Dimer ABG pH 7.119 L POC ABG pCO2 87.1 H POC ABG pO2 ABG pO2 ABG HCO3 ABG O2 Saturation ABG Base Excess ABG Hemoglobin ABG Oxyhemoglobin ABG Sodium 152.5 H ABG Potassium 5.7 H ABG Chloride 120.0 H ABG Glucose 217 H Oxyhemoglobin Carboxyhemoglobin Sodium 151 H Potassium 5.9 H D Chloride 117.8 H Carbon Dioxide BUN 54 H Creatinine 2.2 H Glucose 208 H POC Glucose 180 H Hemoglobin A1c Lactic Acid Calcium 7.9 L Phosphorus Magnesium Ferritin Total Bilirubin AST ALT Lactate Dehydrogenase C-Reactive Protein Albumin Triglycerides Arterial Blood Glucose 217 H Arterial Blood Ionized Calcium Urine Creatinine Coronavirus (PCR) 01/29/21 01/29/21 01/29/21 12:29 17:28 18:05 WBC RBC Hgb Hct MCV MCH MCHC RDW Plt Count Lymph % (Auto) Lymph # (Auto) Seg Neutrophils % Seg Neuts % (Manual) Lymphocytes % (Manual) Seg Neutrophils # Man Lymphocytes # (Manual) D-Dimer ABG pH POC ABG pCO2 POC ABG pO2 ABG pO2 ABG HCO3 ABG O2 Saturation ABG Base Excess ABG Hemoglobin ABG Oxyhemoglobin ABG Sodium ABG Potassium ABG Chloride ABG Glucose Oxyhemoglobin Carboxyhemoglobin Sodium 151 H Potassium 5.5 H Chloride 118.2 H Carbon Dioxide BUN 52 H Creatinine 2.2 H Glucose 224 H POC Glucose 181 H 203 H Hemoglobin A1c Lactic Acid Calcium 8.0 L Phosphorus Magnesium Ferritin Total Bilirubin AST ALT Lactate Dehydrogenase C-Reactive Protein Albumin Triglycerides Arterial Blood Glucose Arterial Blood Ionized Calcium Urine Creatinine Coronavirus (PCR) 01/29/21 01/29/21 01/29/21 18:13 23:34 Unknown WBC RBC Hgb Hct MCV 101 H MCH MCHC RDW 15.7 H Plt Count Lymph % (Auto) Lymph # (Auto) Seg Neutrophils % Seg Neuts % (Manual) 95.0 H Lymphocytes % (Manual) 3.0 L Seg Neutrophils # Man 8.0 H Lymphocytes # (Manual) 0.3 L D-Dimer ABG pH 7.223 L POC ABG pCO2 64.8 H POC ABG pO2 63.6 L ABG pO2 ABG HCO3 ABG O2 Saturation ABG Base Excess ABG Hemoglobin ABG Oxyhemoglobin 89.4 L ABG Sodium 152.9 H ABG Potassium 5.3 H ABG Chloride 121.0 H ABG Glucose 227 H Oxyhemoglobin Carboxyhemoglobin Sodium Potassium Chloride Carbon Dioxide BUN Creatinine Glucose POC Glucose 198 H Hemoglobin A1c Lactic Acid Calcium Phosphorus Magnesium Ferritin Total Bilirubin AST ALT Lactate Dehydrogenase C-Reactive Protein Albumin Triglycerides Arterial Blood Glucose 227 H Arterial Blood Ionized Calcium Urine Creatinine Coronavirus (PCR) 01/30/21 01/30/21 01/30/21 04:00 04:00 04:00 WBC RBC Hgb Hct MCV MCH MCHC RDW Plt Count Lymph % (Auto) Lymph # (Auto) Seg Neutrophils % Seg Neuts % (Manual) Lymphocytes % (Manual) Seg Neutrophils # Man Lymphocytes # (Manual) D-Dimer > 64275 H ABG pH POC ABG pCO2 POC ABG pO2 ABG pO2 ABG HCO3 ABG O2 Saturation ABG Base Excess ABG Hemoglobin ABG Oxyhemoglobin ABG Sodium ABG Potassium ABG Chloride ABG Glucose Oxyhemoglobin Carboxyhemoglobin Sodium Potassium Chloride Carbon Dioxide BUN Creatinine Glucose 234 H POC Glucose Hemoglobin A1c Lactic Acid Calcium Phosphorus Magnesium Ferritin 763.9 H Total Bilirubin AST ALT Lactate Dehydrogenase 424 H C-Reactive Protein 23.90 H Albumin Triglycerides Arterial Blood Glucose Arterial Blood Ionized Calcium Urine Creatinine Coronavirus (PCR) 01/30/21 01/30/21 01/30/21 04:24 05:00 05:16 WBC RBC 3.57 L Hgb 11.3 L Hct 35.4 L MCV 99 H MCH MCHC RDW 15.6 H Plt Count Lymph % (Auto) Lymph # (Auto) Seg Neutrophils % Seg Neuts % (Manual) 97.0 H Lymphocytes % (Manual) 1.0 L Seg Neutrophils # Man 8.6 H Lymphocytes # (Manual) 0.1 L D-Dimer ABG pH 7.235 L POC ABG pCO2 69.7 H POC ABG pO2 61.0 L ABG pO2 ABG HCO3 ABG O2 Saturation ABG Base Excess ABG Hemoglobin ABG Oxyhemoglobin 89 L ABG Sodium 154.2 H ABG Potassium 5.4 H ABG Chloride 121.0 H ABG Glucose 247 H Oxyhemoglobin Carboxyhemoglobin Sodium Potassium Chloride Carbon Dioxide BUN Creatinine Glucose POC Glucose 238 H Hemoglobin A1c Lactic Acid Calcium Phosphorus Magnesium Ferritin Total Bilirubin AST ALT Lactate Dehydrogenase C-Reactive Protein Albumin Triglycerides Arterial Blood Glucose 247 H Arterial Blood Ionized Calcium Urine Creatinine Coronavirus (PCR) 01/30/21 01/30/21 01/30/21 06:00 11:28 12:00 WBC RBC Hgb Hct MCV MCH MCHC RDW Plt Count Lymph % (Auto) Lymph # (Auto) Seg Neutrophils % Seg Neuts % (Manual) Lymphocytes % (Manual) Seg Neutrophils # Man Lymphocytes # (Manual) D-Dimer ABG pH POC ABG pCO2 POC ABG pO2 ABG pO2 ABG HCO3 ABG O2 Saturation ABG Base Excess ABG Hemoglobin ABG Oxyhemoglobin ABG Sodium ABG Potassium ABG Chloride ABG Glucose Oxyhemoglobin Carboxyhemoglobin Sodium 152 H Potassium 5.3 H Chloride 120.5 H Carbon Dioxide BUN 50 H Creatinine 2.3 H Glucose 239 H POC Glucose 153 H Hemoglobin A1c Lactic Acid Calcium 8.2 L Phosphorus Magnesium 2.60 H Ferritin Total Bilirubin AST ALT Lactate Dehydrogenase C-Reactive Protein Albumin Triglycerides 293 H Arterial Blood Glucose Arterial Blood Ionized Calcium Urine Creatinine 53.0 H Coronavirus (PCR) 01/30/21 01/30/21 01/31/21 18:49 23:06 04:00 WBC RBC Hgb Hct MCV MCH MCHC RDW Plt Count Lymph % (Auto) Lymph # (Auto) Seg Neutrophils % Seg Neuts % (Manual) Lymphocytes % (Manual) Seg Neutrophils # Man Lymphocytes # (Manual) D-Dimer ABG pH POC ABG pCO2 POC ABG pO2 ABG pO2 ABG HCO3 ABG O2 Saturation ABG Base Excess ABG Hemoglobin ABG Oxyhemoglobin ABG Sodium ABG Potassium ABG Chloride ABG Glucose Oxyhemoglobin Carboxyhemoglobin Sodium 156 H Potassium 5.9 H Chloride 122.6 H Carbon Dioxide BUN 61 H Creatinine 3.2 H Glucose 205 H POC Glucose 220 H 192 H Hemoglobin A1c Lactic Acid Calcium 8.0 L Phosphorus Magnesium Ferritin Total Bilirubin AST ALT Lactate Dehydrogenase C-Reactive Protein Albumin Triglycerides Arterial Blood Glucose Arterial Blood Ionized Calcium Urine Creatinine Coronavirus (PCR) 01/31/21 01/31/21 01/31/21 04:40 05:17 11:33 WBC RBC Hgb Hct MCV MCH MCHC RDW Plt Count Lymph % (Auto) Lymph # (Auto) Seg Neutrophils % Seg Neuts % (Manual) Lymphocytes % (Manual) Seg Neutrophils # Man Lymphocytes # (Manual) D-Dimer ABG pH 7.161 L* POC ABG pCO2 POC ABG pO2 ABG pO2 142.2 H ABG HCO3 28.3 H ABG O2 Saturation ABG Base Excess -3.2 L ABG Hemoglobin ABG Oxyhemoglobin ABG Sodium ABG Potassium ABG Chloride ABG Glucose Oxyhemoglobin Carboxyhemoglobin Sodium Potassium Chloride Carbon Dioxide BUN Creatinine Glucose POC Glucose 200 H 167 H Hemoglobin A1c Lactic Acid Calcium Phosphorus Magnesium Ferritin Total Bilirubin AST ALT Lactate Dehydrogenase C-Reactive Protein Albumin Triglycerides Arterial Blood Glucose Arterial Blood Ionized Calcium Urine Creatinine Coronavirus (PCR) 01/31/21 01/31/21 01/31/21 14:00 17:10 23:24 WBC RBC Hgb Hct MCV MCH MCHC RDW Plt Count Lymph % (Auto) Lymph # (Auto) Seg Neutrophils % Seg Neuts % (Manual) Lymphocytes % (Manual) Seg Neutrophils # Man Lymphocytes # (Manual) D-Dimer ABG pH 7.205 L POC ABG pCO2 POC ABG pO2 ABG pO2 90.9 H ABG HCO3 26.5 H ABG O2 Saturation ABG Base Excess -2.7 L ABG Hemoglobin 12.3 L ABG Oxyhemoglobin ABG Sodium ABG Potassium ABG Chloride ABG Glucose Oxyhemoglobin 93.9 L Carboxyhemoglobin Sodium Potassium Chloride Carbon Dioxide BUN Creatinine Glucose POC Glucose 190 H 203 H Hemoglobin A1c Lactic Acid Calcium Phosphorus Magnesium Ferritin Total Bilirubin AST ALT Lactate Dehydrogenase C-Reactive Protein Albumin Triglycerides Arterial Blood Glucose Arterial Blood Ionized Calcium Urine Creatinine Coronavirus (PCR) 02/01/21 02/01/21 02/01/21 05:15 06:22 10:20 WBC RBC Hgb Hct MCV MCH MCHC RDW Plt Count Lymph % (Auto) Lymph # (Auto) Seg Neutrophils % Seg Neuts % (Manual) Lymphocytes % (Manual) Seg Neutrophils # Man Lymphocytes # (Manual) D-Dimer ABG pH 6.920 L* 7.116 L* POC ABG pCO2 POC ABG pO2 ABG pO2 102.9 H 113.1 H ABG HCO3 28.2 H ABG O2 Saturation 92.9 L ABG Base Excess -6.9 L -5.8 L ABG Hemoglobin 11.6 L 9.5 L ABG Oxyhemoglobin ABG Sodium ABG Potassium ABG Chloride ABG Glucose Oxyhemoglobin 90.5 L 94.6 L Carboxyhemoglobin Sodium Potassium Chloride Carbon Dioxide BUN Creatinine Glucose POC Glucose 221 H Hemoglobin A1c Lactic Acid Calcium Phosphorus Magnesium Ferritin Total Bilirubin AST ALT Lactate Dehydrogenase C-Reactive Protein Albumin Triglycerides Arterial Blood Glucose Arterial Blood Ionized Calcium Urine Creatinine Coronavirus (PCR) 02/01/21 02/01/21 02/01/21 11:12 12:35 16:00 WBC RBC Hgb Hct MCV MCH MCHC RDW Plt Count Lymph % (Auto) Lymph # (Auto) Seg Neutrophils % Seg Neuts % (Manual) Lymphocytes % (Manual) Seg Neutrophils # Man Lymphocytes # (Manual) D-Dimer ABG pH 7.155 L* POC ABG pCO2 POC ABG pO2 ABG pO2 94.6 H ABG HCO3 ABG O2 Saturation ABG Base Excess -6.5 L ABG Hemoglobin 13.1 L ABG Oxyhemoglobin ABG Sodium ABG Potassium ABG Chloride ABG Glucose Oxyhemoglobin 93.7 L Carboxyhemoglobin Sodium 155 H Potassium 5.1 H Chloride 120.5 H Carbon Dioxide BUN 90 H Creatinine 6.1 H D Glucose 238 H POC Glucose 207 H Hemoglobin A1c Lactic Acid Calcium 7.4 L Phosphorus Magnesium Ferritin Total Bilirubin AST ALT Lactate Dehydrogenase C-Reactive Protein Albumin Triglycerides Arterial Blood Glucose Arterial Blood Ionized Calcium Urine Creatinine Coronavirus (PCR) 02/01/21 02/01/21 02/02/21 17:10 23:47 04:04 WBC RBC 3.02 L Hgb 9.8 L Hct 30.7 L MCV 102 H MCH MCHC RDW 15.6 H Plt Count Lymph % (Auto) 4.2 L Lymph # (Auto) 0.3 L Seg Neutrophils % Seg Neuts % (Manual) Lymphocytes % (Manual) Seg Neutrophils # Man Lymphocytes # (Manual) D-Dimer ABG pH POC ABG pCO2 POC ABG pO2 ABG pO2 ABG HCO3 ABG O2 Saturation ABG Base Excess ABG Hemoglobin ABG Oxyhemoglobin ABG Sodium ABG Potassium ABG Chloride ABG Glucose Oxyhemoglobin Carboxyhemoglobin Sodium Potassium Chloride Carbon Dioxide BUN Creatinine Glucose POC Glucose 238 H 235 H Hemoglobin A1c Lactic Acid Calcium Phosphorus Magnesium Ferritin Total Bilirubin AST ALT Lactate Dehydrogenase C-Reactive Protein Albumin Triglycerides Arterial Blood Glucose Arterial Blood Ionized Calcium Urine Creatinine Coronavirus (PCR) 02/02/21 02/02/21 02/02/21 05:18 05:35 11:28 WBC RBC Hgb Hct MCV MCH MCHC RDW Plt Count Lymph % (Auto) Lymph # (Auto) Seg Neutrophils % Seg Neuts % (Manual) Lymphocytes % (Manual) Seg Neutrophils # Man Lymphocytes # (Manual) D-Dimer ABG pH 7.195 L* POC ABG pCO2 POC ABG pO2 ABG pO2 72.5 L ABG HCO3 ABG O2 Saturation 91.2 L ABG Base Excess -5.3 L ABG Hemoglobin 6.0 L ABG Oxyhemoglobin ABG Sodium ABG Potassium ABG Chloride ABG Glucose Oxyhemoglobin 89.1 L Carboxyhemoglobin Sodium Potassium Chloride 110.4 H Carbon Dioxide BUN 92 H Creatinine Glucose POC Glucose 239 H Hemoglobin A1c Lactic Acid Calcium Phosphorus Magnesium Ferritin Total Bilirubin AST ALT Lactate Dehydrogenase C-Reactive Protein Albumin Triglycerides Arterial Blood Glucose Arterial Blood Ionized Calcium Urine Creatinine Coronavirus (PCR) 02/02/21 02/02/21 02/02/21 11:53 16:00 18:04 WBC RBC Hgb Hct MCV MCH MCHC RDW Plt Count Lymph % (Auto) Lymph # (Auto) Seg Neutrophils % Seg Neuts % (Manual) Lymphocytes % (Manual) Seg Neutrophils # Man Lymphocytes # (Manual) D-Dimer ABG pH POC ABG pCO2 POC ABG pO2 ABG pO2 ABG HCO3 ABG O2 Saturation ABG Base Excess ABG Hemoglobin ABG Oxyhemoglobin ABG Sodium ABG Potassium ABG Chloride ABG Glucose Oxyhemoglobin Carboxyhemoglobin Sodium Potassium Chloride Carbon Dioxide BUN Creatinine Glucose POC Glucose 248 H 199 H Hemoglobin A1c 6.3 H Lactic Acid Calcium Phosphorus Magnesium Ferritin Total Bilirubin AST ALT Lactate Dehydrogenase C-Reactive Protein Albumin Triglycerides Arterial Blood Glucose Arterial Blood Ionized Calcium Urine Creatinine Coronavirus (PCR) 02/02/21 02/03/21 02/03/21 23:31 03:12 04:10 WBC RBC 3.06 L Hgb 9.7 L Hct 30.4 L MCV 99 H MCH MCHC RDW 15.3 H Plt Count Lymph % (Auto) 6.1 L Lymph # (Auto) 0.5 L Seg Neutrophils % 86.1 H Seg Neuts % (Manual) Lymphocytes % (Manual) Seg Neutrophils # Man Lymphocytes # (Manual) D-Dimer ABG pH 7.199 L POC ABG pCO2 48.3 H POC ABG pO2 68.3 L ABG pO2 ABG HCO3 ABG O2 Saturation ABG Base Excess ABG Hemoglobin 10.2 L ABG Oxyhemoglobin 89.2 L ABG Sodium 155.0 H ABG Potassium 4.6 H ABG Chloride 121.0 H ABG Glucose 166 H Oxyhemoglobin Carboxyhemoglobin 0.3 L Sodium Potassium Chloride Carbon Dioxide BUN Creatinine Glucose POC Glucose 200 H Hemoglobin A1c Lactic Acid Calcium Phosphorus Magnesium Ferritin Total Bilirubin AST ALT Lactate Dehydrogenase C-Reactive Protein Albumin Triglycerides Arterial Blood Glucose 166 H Arterial Blood Ionized Calcium 4.1 L Urine Creatinine Coronavirus (PCR) 02/03/21 02/03/21 02/03/21 04:10 05:34 11:51 WBC RBC Hgb Hct MCV MCH MCHC RDW Plt Count Lymph % (Auto) Lymph # (Auto) Seg Neutrophils % Seg Neuts % (Manual) Lymphocytes % (Manual) Seg Neutrophils # Man Lymphocytes # (Manual) D-Dimer ABG pH POC ABG pCO2 POC ABG pO2 ABG pO2 ABG HCO3 ABG O2 Saturation ABG Base Excess ABG Hemoglobin ABG Oxyhemoglobin ABG Sodium ABG Potassium ABG Chloride ABG Glucose Oxyhemoglobin Carboxyhemoglobin Sodium 154 H D Potassium Chloride 116.7 H Carbon Dioxide 20 L BUN 130 H Creatinine 9.2 H D Glucose 160 H POC Glucose 130 H 154 H Hemoglobin A1c Lactic Acid Calcium 6.7 L Phosphorus 8.60 H Magnesium Ferritin Total Bilirubin AST ALT Lactate Dehydrogenase C-Reactive Protein Albumin Triglycerides Arterial Blood Glucose Arterial Blood Ionized Calcium Urine Creatinine Coronavirus (PCR) 02/03/21 02/03/21 02/04/21 16:49 23:22 03:48 WBC RBC Hgb Hct MCV MCH MCHC RDW Plt Count Lymph % (Auto) Lymph # (Auto) Seg Neutrophils % Seg Neuts % (Manual) Lymphocytes % (Manual) Seg Neutrophils # Man Lymphocytes # (Manual) D-Dimer ABG pH 7.201 L POC ABG pCO2 54.5 H POC ABG pO2 74.0 L ABG pO2 ABG HCO3 ABG O2 Saturation ABG Base Excess ABG Hemoglobin 9.7 L ABG Oxyhemoglobin 91.1 L ABG Sodium 146.2 H ABG Potassium ABG Chloride 114.0 H ABG Glucose 155 H Oxyhemoglobin Carboxyhemoglobin Sodium Potassium Chloride Carbon Dioxide BUN Creatinine Glucose POC Glucose 164 H 152 H Hemoglobin A1c Lactic Acid Calcium Phosphorus Magnesium Ferritin Total Bilirubin AST ALT Lactate Dehydrogenase C-Reactive Protein Albumin Triglycerides Arterial Blood Glucose 155 H Arterial Blood Ionized Calcium 3.9 L Urine Creatinine Coronavirus (PCR) 02/04/21 02/04/21 02/04/21 04:45 04:45 04:45 WBC RBC 2.75 L Hgb 9.1 L Hct 26.9 L MCV 98 H MCH 33 H MCHC RDW Plt Count Lymph % (Auto) 6.8 L Lymph # (Auto) 0.5 L Seg Neutrophils % 87.2 H Seg Neuts % (Manual) Lymphocytes % (Manual) Seg Neutrophils # Man Lymphocytes # (Manual) D-Dimer ABG pH POC ABG pCO2 POC ABG pO2 ABG pO2 ABG HCO3 ABG O2 Saturation ABG Base Excess ABG Hemoglobin ABG Oxyhemoglobin ABG Sodium ABG Potassium ABG Chloride ABG Glucose Oxyhemoglobin Carboxyhemoglobin Sodium 149 H Potassium Chloride 111.5 H Carbon Dioxide BUN 99 H Creatinine 8.5 H Glucose 139 H POC Glucose Hemoglobin A1c Lactic Acid Calcium 6.8 L Phosphorus 8.40 H Magnesium Ferritin Total Bilirubin AST ALT Lactate Dehydrogenase C-Reactive Protein Albumin Triglycerides Arterial Blood Glucose Arterial Blood Ionized Calcium Urine Creatinine Coronavirus (PCR) 02/04/21 02/04/21 02/04/21 06:05 11:44 18:00 WBC RBC Hgb Hct MCV MCH MCHC RDW Plt Count Lymph % (Auto) Lymph # (Auto) Seg Neutrophils % Seg Neuts % (Manual) Lymphocytes % (Manual) Seg Neutrophils # Man Lymphocytes # (Manual) D-Dimer ABG pH POC ABG pCO2 POC ABG pO2 ABG pO2 ABG HCO3 ABG O2 Saturation ABG Base Excess ABG Hemoglobin ABG Oxyhemoglobin ABG Sodium ABG Potassium ABG Chloride ABG Glucose Oxyhemoglobin Carboxyhemoglobin Sodium Potassium Chloride Carbon Dioxide BUN Creatinine Glucose POC Glucose 138 H 129 H 163 H Hemoglobin A1c Lactic Acid Calcium Phosphorus Magnesium Ferritin Total Bilirubin AST ALT Lactate Dehydrogenase C-Reactive Protein Albumin Triglycerides Arterial Blood Glucose Arterial Blood Ionized Calcium Urine Creatinine Coronavirus (PCR) 02/04/21 02/05/21 02/05/21 23:48 01:50 01:50 WBC RBC 2.43 L Hgb 8.3 L Hct 23.6 L MCV 97 H MCH 34 H MCHC 35 H RDW Plt Count 137 L Lymph % (Auto) 8.4 L Lymph # (Auto) 0.6 L Seg Neutrophils % 86.1 H Seg Neuts % (Manual) Lymphocytes % (Manual) Seg Neutrophils # Man Lymphocytes # (Manual) D-Dimer ABG pH POC ABG pCO2 POC ABG pO2 ABG pO2 ABG HCO3 ABG O2 Saturation ABG Base Excess ABG Hemoglobin ABG Oxyhemoglobin ABG Sodium ABG Potassium ABG Chloride ABG Glucose Oxyhemoglobin Carboxyhemoglobin Sodium Potassium Chloride Carbon Dioxide BUN Creatinine Glucose POC Glucose 157 H Hemoglobin A1c Lactic Acid Calcium Phosphorus 5.60 H D Magnesium Ferritin Total Bilirubin AST ALT Lactate Dehydrogenase C-Reactive Protein Albumin Triglycerides Arterial Blood Glucose Arterial Blood Ionized Calcium Urine Creatinine Coronavirus (PCR) 02/05/21 02/05/21 02/05/21 03:44 05:27 09:15 WBC RBC Hgb Hct MCV MCH MCHC RDW Plt Count Lymph % (Auto) Lymph # (Auto) Seg Neutrophils % Seg Neuts % (Manual) Lymphocytes % (Manual) Seg Neutrophils # Man Lymphocytes # (Manual) D-Dimer ABG pH 7.202 L POC ABG pCO2 63.7 H POC ABG pO2 69.0 L ABG pO2 ABG HCO3 ABG O2 Saturation ABG Base Excess ABG Hemoglobin 9.4 L ABG Oxyhemoglobin ABG Sodium ABG Potassium ABG Chloride 108.0 H ABG Glucose 186 H Oxyhemoglobin Carboxyhemoglobin Sodium Potassium Chloride Carbon Dioxide BUN 78 H Creatinine 8.0 H Glucose 163 H POC Glucose 157 H Hemoglobin A1c Lactic Acid Calcium 6.3 L Phosphorus Magnesium Ferritin Total Bilirubin AST ALT Lactate Dehydrogenase C-Reactive Protein Albumin Triglycerides Arterial Blood Glucose 186 H Arterial Blood Ionized Calcium 3.9 L Urine Creatinine Coronavirus (PCR)
--- NOTE | 2021-02-05 11:42 | Progress Note ---
Assessment and Plan Cultures: Blood culture no growth today SARS CoV2 PCR positive 01/22/2021 respiratory culture: Usual respiratory dillon Blood Culture 01/30/2021 no growth today Urine culture 01/30/2021 no growth today Sputum culture 01/30/2021 usual respiratory dillon Blood culture 02/04/2021 pending Assessment: 60 year old male with history of morbid obesity admitted on 01/22/2021 secondary to 3-day history of worsening shortness of breath associated with fever, chills, loss of smell and taste: #Severe sepsis with septic shock: Noted low-grade fever at 100.9, remains on pressors. likely due to bilateral pneumonia. Urinalysis negative. Procalcitonin elevated in the setting of DEISI. #Critical COVID-19 pneumonia: Patient remains intubated. Chest x-ray with bilateral airspace disease. Inflammatory markers worsening, D-dimer>10K. CRP 40-->23. Completed remdesivir. #Acute respiratory failure: Remains on the ventilator #Transaminitis: Likely secondary to COVID-19. #DEISI: Worsening, creatinine 3.2--> 6.1. To Start hemodialysis Recommendations: -Continue cefepime renally adjusted D7 of 10, extended -Add fluconazole renally adjusted -F/u blood cx -Check lower extremity ultrasound rule out DVT -Continue steroids per pulmonary -Monitor inflammatory markers, ordered today -Anticoagulation per protocol, very high d-dimer Very guarded prognosis Will follow Jami Laird MD Infectious Diseases [facility] [employer] [facility] ([facility]) M [phone] O [phone] Subjective Date of service: 02/05/21 Principal diagnosis: DEISI Interval history: Patient remains critically ill, intubated FiO2 90%, remains on Levophed at 4, low-grade fever 100.8 Objective - Exam Narrative Exam: Physical exam deferred to minimize COVID-19 transmission during pandemic. - Constitutional Vitals: Vital Signs Temp Pulse Resp BP Pulse Ox 98.5 F 84 25 H 110/50 94 02/05/21 08:00 02/05/21 11:24 02/05/21 11:15 02/05/21 11:15 02/05/21 11:15 Temperature -Last 24 Hours Temperature 98.5 F Temperature 98.5 F Temperature 100.4 F Temperature 100.8 F Temperature 100.2 F Temperature 100.9 F Temperature 100.9 F - Labs CBC & Chem 7: 02/05/21 01:50 02/05/21 09:15 Labs: Abnormal lab results 02/04/21 02/04/21 02/04/21 Range/Units 11:44 18:00 23:48 RBC (3.65-5.03) M/mm3 Hgb (11.8-15.2) gm/dl Hct (35.5-45.6) % MCV (84-94) fl MCH (28-32) pg MCHC (32-34) % Plt Count (140-440) K/mm3 Lymph % (Auto) (13.4-35.0) % Lymph # (Auto) (1.2-5.4) K/mm3 Seg Neutrophils % (40.0-70.0) % ABG pH (7.320-7.450) POC ABG pCO2 (32.0-48.0) mmHg POC ABG pO2 (83-108) mmHg ABG Hemoglobin (12.0-17.5) ABG Chloride (98-107) mmol/L ABG Glucose (65-95) mg/dL BUN (9-20) mg/dL Creatinine (0.8-1.3) mg/dL Glucose (75-100) mg/dL POC Glucose 129 H 163 H 157 H (70-105) mg/dL Calcium (8.4-10.2) mg/dL Phosphorus (2.5-4.5) mg/dL Arterial Blood Glucose (65-95) mg/dL Arterial Blood Ionized Calcium (4.6-5.3) mg/dL 02/05/21 02/05/21 02/05/21 Range/Units 01:50 01:50 03:44 RBC 2.43 L (3.65-5.03) M/mm3 Hgb 8.3 L (11.8-15.2) gm/dl Hct 23.6 L (35.5-45.6) % MCV 97 H (84-94) fl MCH 34 H (28-32) pg MCHC 35 H (32-34) % Plt Count 137 L (140-440) K/mm3 Lymph % (Auto) 8.4 L (13.4-35.0) % Lymph # (Auto) 0.6 L (1.2-5.4) K/mm3 Seg Neutrophils % 86.1 H (40.0-70.0) % ABG pH 7.202 L (7.320-7.450) POC ABG pCO2 63.7 H (32.0-48.0) mmHg POC ABG pO2 69.0 L (83-108) mmHg ABG Hemoglobin 9.4 L (12.0-17.5) ABG Chloride 108.0 H (98-107) mmol/L ABG Glucose 186 H (65-95) mg/dL BUN (9-20) mg/dL Creatinine (0.8-1.3) mg/dL Glucose (75-100) mg/dL POC Glucose (70-105) mg/dL Calcium (8.4-10.2) mg/dL Phosphorus 5.60 H D (2.5-4.5) mg/dL Arterial Blood Glucose 186 H (65-95) mg/dL Arterial Blood Ionized Calcium 3.9 L (4.6-5.3) mg/dL 02/05/21 02/05/21 Range/Units 05:27 09:15 RBC (3.65-5.03) M/mm3 Hgb (11.8-15.2) gm/dl Hct (35.5-45.6) % MCV (84-94) fl MCH (28-32) pg MCHC (32-34) % Plt Count (140-440) K/mm3 Lymph % (Auto) (13.4-35.0) % Lymph # (Auto) (1.2-5.4) K/mm3 Seg Neutrophils % (40.0-70.0) % ABG pH (7.320-7.450) POC ABG pCO2 (32.0-48.0) mmHg POC ABG pO2 (83-108) mmHg ABG Hemoglobin (12.0-17.5) ABG Chloride (98-107) mmol/L ABG Glucose (65-95) mg/dL BUN 78 H (9-20) mg/dL Creatinine 8.0 H (0.8-1.3) mg/dL Glucose 163 H (75-100) mg/dL POC Glucose 157 H (70-105) mg/dL Calcium 6.3 L (8.4-10.2) mg/dL Phosphorus (2.5-4.5) mg/dL Arterial Blood Glucose (65-95) mg/dL Arterial Blood Ionized Calcium (4.6-5.3) mg/dL
[2021-02-05] MEDS ORDERED: FLUCONAZOLE 200 MG 200 MG/100 ML BAG IV ONE (12:00)
--- NOTE | 2021-02-05 16:05 | Progress Note ---
Assessment and Plan Assessment and plan: -CCM, nephrology, infectious disease consulted, appreciate recommendations -Antibiotic therapy -COVID-19 PCR positive, Pneumonia on CXR -Steroid therapy, s/p remdesivir -Mechanical ventilation, wean as tolerated -VAP bundle -HD per nephrology -Trend BMP -S/p MIVF -Bilateral lower extremity Doppler ultrasound negative for DVT/SVT -Therapeutic Lovenox -SSI -Long-acting insulin -Accu-Cheks every 6 while on tube feedings -Hold home antihypertensive regimen for now as he is still needing vasopressor support -Blood pressure monitoring per protocol DVT/GI prophylaxis: SCDs to bilateral lower extremities while in bed, heparin subcu, PPI Dispo: ICU The high probability of a clinically significant, sudden or life threatening deterioration of the [multi] system(s) required my full and direct attention, intervention and personal management. The aggregate critical care time was [32] minutes. This time is in addition to time spent performing reported procedures but includes the following: [x] Data Review and interpretation [x] Patient assessment and monitoring of vital signs [x] Documentation [x] Medication orders and management History Interval history: This is a 60-year-old male with diabetes mellitus, hypertension, hyperlipidemia, chronic renal insufficiency presents to the emergency department on 01/23 with shortness of breath, fevers chills, loss of smell and taste and body aches for the past 3 days via EMS. Per EMS patient's oxygen saturation on room air was 50% and after being placed on nonrebreather it increased 75%. Upon arrival to the emergency department patient was being bagged by EMS. In the emergency room patient was intubated due to severe hypoxia, increased work of breathing and lethargy. Patient was sedated on propofol and fentanyl. Patient presented with fever, tachycardia, tachypnea and acute hypoxic respiratory failure with PNA on CXR meeting Sepsis criteria. Lab work in the emergency department revealed hyponatremia, hypokalemia, hypochloremia, elevated CR/BUN and CXR showed bilateral pneumonia. Patient was admitted to the hospital service as a COVID-19 PUI with consults to infectious disease, nephrology and critical care medicine. Sepsis COVID-19 pneumonia Bilateral pneumonia Acute hypoxic respiratory failure Acute kidney injury, HD initiated 02/03 Hypernatremia Hyperchloremia Hyperkalemia Metabolic acidosis Hyperphosphatemia Diabetes mellitus Hypertension Hyperlipidemia Chronic renal insufficiency Elevated D-dimer 01/24/2021: Patient is intubated and sedated, patient is positive for COVID-19 i nfection. ID was consulted and put on dexamethasone and remdesivir. Patient has DEISI and nephrology is following. Creatinine stable, patient is urinating. Discussed with nephrology and he is okay with remdesivir. Pulmonary critical care is following for his vent setting. PEEP of 8 and FiO2 of 85%. Patient was alert and off sedatives. 01/25/2021; patient is intubated and on mechanical ventilation. Continue with treatment of Covid. Nephrology and ID is following. Pulmonary is following for vent management 01/26: Remains on mechanical ventilation and [facility] increased his PEEP. [facility] has ord ered Precedex for sedation. Possibly need to prone this p.m. No acute events reported overnight. This morning his D-dimer is greater than 10,000 and we have started him on Lovenox 120 mg daily. Nutrition has been consulted for initiation of tube feedings. Patient remains sedated on propofol 40 and fentanyl for the time my examination this morning. 01/27: Continue Lovenox, remdesivir and empiric antibiotics. Patient had a T-max of 101 overnight. The time of examination patient is on CMV 500/18/14/0.61. Kidney function slightly worsened. Sedated on fentanyl ground-level fall and Precedex. Nephrology has increased IV fluids to 100 ml/hr. Continue to trend BMP and CBC. Sedation vacation attempt by RN this AM. 01/28: Patient completed antibiotics today [facility] will paralyze patient and increase sedation. PICC line ordered for possible vasopressor therapy need. Patient's D-dimer remains greater than 10,000 and he still has hyperchloremia. Patient's kidney function has improved today. May need to prone the patient if no improvement in oxygenation is noted in the next 24 hours. The time of my examination patient is sedated with propofol, fentanyl and Precedex and is on assist control 500/18/16/0.80 hypoxic on ABG on 60% FiO2. 01/29: Patient was started on Nimbex yesterday and his ABG this morning showed respiratory acidosis with hypercapnia and his respiratory rate was increased. We will obtain a repeat ABG this afternoon. This morning patient is hypernatremic, hyperkalemic and hyperchloremic. His potassium has been corrected with the management and will obtain repeat BMP tomorrow. His kidney functions have remained stable and we will await nephrology's input. No acute events reported overnight. This morning the time my examination patient sedated with propofol, Precedex and fentanyl and paralyzed with Nimbex. He is on assist control 500/24/16 0.80. 01/30: This morning patient is hypokalemic again and was given Kayexalate. Patient has hypernatremia and hyper chloremia and his renal function is slightly worse after receiving Lasix yesterday. His D-dimer remains greater than 10,000 and he is still on a paralytic. Patient is sedated on Precedex, fentanyl, propofol. Mechanical ventilation settings seven-point //28. [facility] has decided to continue paralytics for 48 more hours and will attempt proning the patient. Increased free water flushes 300 cc every 4 hours. Patient states has restarted his antibiotics cefepime and vancomycin and recultured. 01/31/21 Hyperkalemia Treated 02/01/21 Hyperkalemia Treated 02/02: Patient's kidney function continues to worsen and a stat BMP this morning shows BUN/creatinine 20/6.1 and he remains hypocalcemic and hypernatremic, hypokalemic and hypochloremic. Patient received 2 g of calcium gluconate and Kayexalate and his repeat potassium was 4.3 this afternoon. He remains antibiotic therapy and steroids. Nephrology has placed the patient on bicarb drip given metabolic acidosis and has decided to hold off hemodialysis till tomorrow.The time my examination patient is sedated on fentanyl, Precedex and on assist control 500/20/12/0.70. s/p paralytic. 02/03: Today patient's ABG shows respiratory acidosis however it is improving, hypernatremia, hyperchloremia, metabolic acidosis on BMP, worsening kidney funct ion BUN/creatinine 130/9.2 with hyperphosphatemia. Patient received a Vas-Cath to his right IJ for initiation of dialysis. At the time of my examination patient remains sedated on fentanyl, propofol and Precedex with vasopressor support with Levophed at 2. 02/04: At the time of examination patient was on assist control tidal volume 500, rate 40, PEEP of 12, FiO2 85%. Patient had a T-max of 100.9 and infectious disease has stopped his vancomycin given negative MRSA. This afternoon patient respiked his temperature and was pancultured again. Patient was started on hemodialysis yesterday and will receive HD again today. Patient is sedated on Precedex, propofol, fentanyl and remains on Levophed. He is on assist control tidal volume 500, rate of 30, PEEP of 12, FiO2 of 85%. Patient still has some respiratory acidosis however his hypernatremia and hyperchloremia have improved and his metabolic acidosis has resolved. Patient will receive hemodialysis today 02/05: Patient continues to have low-grade fever temp this morning time examination he was on assist control tidal volume 500, and sedated on propofol/fentanyl/Precedex and is on Levophed. Hemodialysis per nephrology. Antibiotics per ID. Patient's blood culture from 02/04 grew gram-positive cocci in clusters in 1/2 bottles likely representing contaminant. Hospitalist Physical - Constitutional Vitals: Temp Pulse Resp BP Pulse Ox 98.7 F 94 H 24 127/65 95 02/05/21 15:58 02/05/21 15:58 02/05/21 15:58 02/05/21 15:58 02/05/21 15:58 General appearance: Present: no acute distress, well-nourished, other (Sedated on mechanical ventilation) - EENT Eyes: Present: PERRL - Neck Neck: Present: normal ROM - Respiratory Respiratory effort: normal Respiratory: bilateral: diminished - Cardiovascular Rhythm: regular Heart Sounds: Present: S1 & S2. Absent: systolic murmur, diastolic murmur - Extremities Extremities: no ischemia, pulses intact, pulses symmetrical Extremity abnormal: edema Peripheral Pulses: within normal limits - Abdominal General gastrointestinal: soft, non-tender, non-distended, normal bowel sounds - Integumentary Integumentary: Present: warm, dry - Psychiatric Psychiatric: other (Sedated) - Neurologic Neurologic: other (Sedated) HEART Score - HEART Score Risk factors: 1-2 risk factors Troponin: < normal limit - Critical Actions Critical Actions: 0-3 pts:0.9-1.7%risk of adverse cardiac event.Candidate for discharge Results - Labs CBC & Chem 7: 02/05/21 01:50 02/05/21 09:15 Labs: Laboratory Last Values WBC 7.0 K/mm3 (4.5-11.0) 02/05/21 01:50 RBC 2.43 M/mm3 (3.65-5.03) L 02/05/21 01:50 Hgb 8.3 gm/dl (11.8-15.2) L 02/05/21 01:50 Hct 23.6 % (35.5-45.6) L 02/05/21 01:50 MCV 97 fl (84-94) H 02/05/21 01:50 MCH 34 pg (28-32) H 02/05/21 01:50 MCHC 35 % (32-34) H 02/05/21 01:50 RDW 14.4 % (13.2-15.2) 02/05/21 01:50 Plt Count 137 K/mm3 (140-440) L 02/05/21 01:50 Lymph % (Auto) 8.4 % (13.4-35.0) L 02/05/21 01:50 [place] % (Auto) 3.5 % (0.0-7.3) 02/05/21 01:50 Eos % (Auto) 1.5 % (0.0-4.3) 02/05/21 01:50 Baso % (Auto) 0.5 % (0.0-1.8) 02/05/21 01:50 Lymph # (Auto) 0.6 K/mm3 (1.2-5.4) L 02/05/21 01:50 [place] # (Auto) 0.2 K/mm3 (0.0-0.8) 02/05/21 01:50 Eos # (Auto) 0.1 K/mm3 (0.0-0.4) 02/05/21 01:50 Baso # (Auto) 0.0 K/mm3 (0.0-0.1) 02/05/21 01:50 Add Manual Diff Complete 01/30/21 05:00 Total Counted 100 01/30/21 05:00 Seg Neutrophils % 86.1 % (40.0-70.0) H 02/05/21 01:50 Seg Neuts % (Manual) 97.0 % (40.0-70.0) H 01/30/21 05:00 Band Neutrophils % 1.0 % 01/27/21 05:29 Lymphocytes % (Manual) 1.0 % (13.4-35.0) L 01/30/21 05:00 Reactive Lymphs % (Man) 1.0 % 01/27/21 05:29 Monocytes % (Manual) 2.0 % (0.0-7.3) 01/30/21 05:00 Eosinophils % (Manual) 2.0 % (0.0-4.3) 01/24/21 05:05 Nucleated RBC % Not Reportable 01/30/21 05:00 Seg Neutrophils # 6.0 K/mm3 (1.8-7.7) 02/05/21 01:50 Seg Neutrophils # Man 8.6 K/mm3 (1.8-7.7) H 01/30/21 05:00 Band Neutrophils # 0.0 K/mm3 01/30/21 05:00 Lymphocytes # (Manual) 0.1 K/mm3 (1.2-5.4) L 01/30/21 05:00 Abs React Lymphs (Man) 0.0 K/mm3 01/30/21 05:00 Monocytes # (Manual) 0.2 K/mm3 (0.0-0.8) 01/30/21 05:00 Eosinophils # (Manual) 0.0 K/mm3 (0.0-0.4) 01/30/21 05:00 Basophils # (Manual) 0.0 K/mm3 (0.0-0.1) 01/30/21 05:00 Metamyelocytes # 0.0 K/mm3 01/30/21 05:00 Myelocytes # 0.0 K/mm3 01/30/21 05:00 Promyelocytes # 0.0 K/mm3 01/30/21 05:00 Blast Cells # 0.0 K/mm3 01/30/21 05:00 WBC Morphology Not Reportable 01/30/21 05:00 Hypersegmented Neuts Not Reportable 01/30/21 05:00 Hyposegmented Neuts Not Reportable 01/30/21 05:00 Hypogranular Neuts Not Reportable 01/30/21 05:00 Smudge Cells Not Reportable 01/30/21 05:00 Toxic Granulation Not Reportable 01/30/21 05:00 Toxic Vacuolation Not Reportable 01/30/21 05:00 Dohle Bodies Not Reportable 01/30/21 05:00 Pelger-Huet Anomaly Not Reportable 01/30/21 05:00 Fátima Rods Not Reportable 01/30/21 05:00 Platelet Estimate Consistent w auto 01/30/21 05:00 Clumped Platelets Not Reportable 01/30/21 05:00 Plt Clumps, EDTA Not Reportable 01/30/21 05:00 Large Platelets Not Reportable 01/30/21 05:00 Giant Platelets Not Reportable 01/30/21 05:00 Platelet Satelliting Not Reportable 01/30/21 05:00 Plt Morphology Comment Not Reportable 01/30/21 05:00 RBC Morphology Not Reportable 01/30/21 05:00 Dimorphic RBCs Not Reportable 01/30/21 05:00 Polychromasia Not Reportable 01/30/21 05:00 Hypochromasia Not Reportable 01/30/21 05:00 Poikilocytosis Not Reportable 01/30/21 05:00 Anisocytosis Not Reportable 01/30/21 05:00 Microcytosis Not Reportable 01/30/21 05:00 Macrocytosis Not Reportable 01/30/21 05:00 Spherocytes Not Reportable 01/30/21 05:00 Pappenheimer Bodies Not Reportable 01/30/21 05:00 Sickle Cells Not Reportable 01/30/21 05:00 Target Cells Not Reportable 01/30/21 05:00 Tear Drop Cells Not Reportable 01/30/21 05:00 Ovalocytes Not Reportable 01/30/21 05:00 Helmet Cells Not Reportable 01/30/21 05:00 [place] Bodies Not Reportable 01/30/21 05:00 [place] Rings Not Reportable 01/30/21 05:00 [place] Cells Not Reportable 01/30/21 05:00 Bite Cells Not Reportable 01/30/21 05:00 Crenated Cell Not Reportable 01/30/21 05:00 Elliptocytes Not Reportable 01/30/21 05:00 Acanthocytes (Spur) Not Reportable 01/30/21 05:00 Rouleaux Not Reportable 01/30/21 05:00 Hemoglobin C Crystals Not Reportable 01/30/21 05:00 Schistocytes Not Reportable 01/30/21 05:00 Malaria parasites Not Reportable 01/30/21 05:00 [place] Bodies Not Reportable 01/30/21 05:00 Hem Pathologist Commnt No 01/30/21 05:00 D-Dimer > 59050 ng/mlDDU (0-234) H 01/30/21 04:00 ABG pH 7.202 (7.320-7.450) L 02/05/21 03:44 POC ABG pCO2 63.7 mmHg (32.0-48.0) H 02/05/21 03:44 ABG pCO2 59.2 mm Hg 02/02/21 05:35 POC ABG pO2 69.0 mmHg (83-108) L 02/05/21 03:44 ABG pO2 72.5 mm Hg (80.0-90.0) L 02/02/21 05:35 POC ABG HCO3 24.4 02/05/21 03:44 ABG HCO3 22.3 mmol/L (20.0-26.0) 02/02/21 05:35 ABG O2 Saturation 91 (0-100) 02/05/21 03:44 ABG O2 Content 7.7 (0.0-44) 02/02/21 05:35 POC ABG Base Excess -3.9 02/05/21 03:44 ABG Base Excess -5.3 mmol/L (-2.0-3.0) L 02/02/21 05:35 ABG Hemoglobin 9.4 (12.0-17.5) L 02/05/21 03:44 ABG Oxyhemoglobin 91.1 (94-98) L 02/04/21 03:48 ABG Carboxyhemoglobin 1.7 % (0.0-5.0) 02/02/21 05:35 ABG Methemoglobin 0.2 (0.0-1.5) 02/04/21 03:48 ABG Sodium 139.8 mmol/L (136.0-145.0) 02/05/21 03:44 ABG Potassium 3.5 mmol/L (3.40-4.50) 02/05/21 03:44 ABG Chloride 108.0 mmol/L (98-107) H 02/05/21 03:44 ABG Glucose 186 mg/dL (65-95) H 02/05/21 03:44 Oxyhemoglobin 89.1 % (95.0-99.0) L 02/02/21 05:35 Carboxyhemoglobin 1 (0.5-1.5) 02/04/21 03:48 FiO2 70 % 02/02/21 05:35 FiO2 % 90 02/05/21 03:44 Sodium 141 mmol/L (137-145) D 02/05/21 09:15 Potassium 3.6 mmol/L (3.6-5.0) 02/05/21 09:15 Chloride 103.1 mmol/L (98-107) 02/05/21 09:15 Carbon Dioxide 23 mmol/L (22-30) 02/05/21 09:15 Anion Gap 19 mmol/L 02/05/21 09:15 BUN 78 mg/dL (9-20) H 02/05/21 09:15 Creatinine 8.0 mg/dL (0.8-1.3) H 02/05/21 09:15 Estimated GFR 8 ml/min 02/05/21 09:15 BUN/Creatinine Ratio 10 % 02/05/21 09:15 Glucose 163 mg/dL (75-100) H 02/05/21 09:15 POC Glucose 126 mg/dL (70-105) H 02/05/21 11:47 Hemoglobin A1c 6.3 % (4-6) H 02/02/21 16:00 Lactic Acid 1.90 mmol/L (0.7-2.0) 01/24/21 14:38 Calcium 6.3 mg/dL (8.4-10.2) L 02/05/21 09:15 Phosphorus 5.60 mg/dL (2.5-4.5) H D 02/05/21 01:50 Magnesium 2.20 mg/dL (1.7-2.3) 02/04/21 04:45 Ferritin 763.9 ng/mL (30.0-300.0) H 01/30/21 04:00 Total Bilirubin 1.50 mg/dL (0.1-1.2) H 01/26/21 05:47 AST 37 units/L (5-40) 01/26/21 05:47 ALT 29 units/L (7-56) 01/26/21 05:47 Alkaline Phosphatase 70 units/L (35-129) 01/26/21 05:47 Lactate Dehydrogenase 424 units/L (91-180) H 01/30/21 04:00 C-Reactive Protein 23.90 mg/dL (0.00-1.30) H 01/30/21 04:00 Total Protein 7.2 g/dL (6.3-8.2) 01/26/21 05:47 Albumin 2.2 g/dL (3.9-5) L 01/26/21 05:47 Albumin/Globulin Ratio 0.4 % 01/26/21 05:47 Triglycerides 293 mg/dL (2-149) H 01/30/21 06:00 Procalcitonin 0.92 ng/mL (<0.15) 01/22/21 22:57 Arterial Blood Glucose 186 mg/dL (65-95) H 02/05/21 03:44 Arterial Blood Ionized Calcium 3.9 mg/dL (4.6-5.3) L 02/05/21 03:44 Urine Color Nehal (Yellow) 01/22/21 22:39 Urine Turbidity Cloudy (Clear) 01/22/21 22:39 Urine pH 5.0 (5.0-7.0) 01/22/21 22:39 Ur Specific [place] 1.017 (1.003-1.030) 01/22/21 22:39 Urine Protein 100 mg/dl mg/dL (Negative) 01/22/21 22:39 Urine Glucose (UA) Neg mg/dL (Negative) 01/22/21 22:39 Urine Ketones Neg mg/dL (Negative) 01/22/21 22:39 Urine Blood Mod (Negative) 01/22/21 22:39 Urine Nitrite Neg (Negative) 01/22/21 22:39 Urine Bilirubin Neg (Negative) 01/22/21 22:39 Urine Urobilinogen 2.0 mg/dL (<2.0) 01/22/21 22:39 Ur Leukocyte Esterase Mod (Negative) 01/22/21 22:39 Urine WBC (Auto) < 1.0 /HPF (0.0-6.0) 01/22/21 22:39 Urine RBC (Auto) < 1.0 /HPF (0.0-6.0) 01/22/21 22:39 U Epithel Cells (Auto) < 1.0 /HPF (0-13.0) 01/22/21 22:39 Urine Osmolality 416 Mosm/kg 01/30/21 12:15 Urine Total Volume 2300 ml 01/30/21 12:00 Urine Creatinine 53.0 mg/dL (0.1-20.0) H 01/30/21 12:00 Ur Creatinine 24 Hour 1.2 (0.8-2.8) 01/30/21 12:00 Urine Sodium 28 mmol/L 01/22/21 22:39 Nasal Screen MRSA (PCR) Negative (Negative) 02/02/21 13:20 Random Vancomycin 13.2 ug/mL (0-40.0) 02/04/21 04:45 Coronavirus (PCR) Positive (Negative) A 01/23/21 08:41 Hepatitis A IgM Ab Non-reactive (NonReactive) 02/03/21 Unknown Hep Bs Antigen Non-reactive (Negative) 02/03/21 Unknown Hep B Core IgM Ab Non-reactive (NonReactive) 02/03/21 Unknown Hepatitis C Antibody Non-reactive (NonReactive) 02/03/21 Unknown Microbiology: Microbiology 02/04/21 16:01 Peripheral/Venous Blood Culture - Preliminary 02/04/21 16:01 Peripheral/Venous Blood Culture - Preliminary 02/04/21 Unknown Tracheal Aspirate Sputum Culture - Preliminary 02/04/21 Unknown Urine,[place] Urine Culture - Preliminary NO GROWTH AFTER 24 HOURS 01/30/21 15:29 Peripheral/Venous Blood Culture - Final NO GROWTH AFTER 5 DAYS 01/30/21 15:29 Peripheral/Venous Blood Culture - Final NO GROWTH AFTER 5 DAYS Black/IV: Voiding Method Indwelling Catheter Active Medications - Current Medications Current Medications: Generic Name Dose Route Start Last Admin Trade Name Freq PRN Reason Stop Dose Admin Acetaminophen 650 mg 01/23/21 02:25 Acetaminophen 650 Mg Rect Supp SD Q4H PRN Pain, Mild (1-3) Acetaminophen 650 mg 01/24/21 12:58 02/05/21 03:14 Acetaminophen 325 Mg/10.15 Ml Oral Liqd Unit Dose FEEDTUBE 650 mg Q6H PRN Administration Pain, Mild (1-3) Lipase/Protease/Amylase 1 each 01/26/21 14:25 Lipase 10,500/Protease 25,000/Amylase 43,750 (Units) Dr Claudio FEEDTUBE PRN PRN For Clogged Feeding Tube Dextrose 50 ml 01/27/21 07:24 Dextrose 50% In Water (25gm) 50 Ml Syringe IV Q30MIN PRN Hypoglycemia Protocol Enoxaparin Sodium 120 mg 01/26/21 11:00 02/05/21 09:27 Enoxaparin 120 Mg/0.8 Ml Inj SUB-Q 120 mg Q24HR CECE Administration Famotidine 20 mg 01/24/21 10:00 02/05/21 09:26 Famotidine 20 Mg/2 Ml Inj IV 20 mg DAILY CECE Administration Fentanyl 50 mcg 01/22/21 22:39 Fentanyl 100 Mcg/2 Ml Inj IV Q10MIN PRN ANALGESIA Hydrophilic Ointment 1 applic 01/22/21 22:39 Lip Therapy Vaseline TP Q2HR PRN Dry Lips Fentanyl Citrate 2,000 mcg in 100 mls @ 6.124 mls/hr 01/22/21 23:00 02/05/21 13:35 Fentanyl Drip Premix IV 4 mcg/kg/hr TITR CECE 24.494 mls/hr Administration Protocol 1 MCG/KG/HR Propofol 1,000 mg in 100 mls @ 3.674 mls/hr 01/22/21 23:45 02/05/21 12:40 Diprivan 10 Mg/Ml IV 15 mcg/kg/min TITR CECE 11.022 mls/hr Administration Protocol 5 MCG/KG/MIN Norepinephrine 4 mg in 250 mls @ 7.5 mls/hr 01/28/21 14:00 02/05/21 11:43 Levophed Drip 4 Mg/Ns 250 Ml IV 6 mcg/min TITR CECE 22.5 mls/hr Titration Protocol 2 MCG/MIN Dexmedetomidine HCl 1,000 mcg/ 260 mls @ 6.368 mls/hr 01/30/21 20:00 02/05/21 11:55 Sodium Chloride IV 1.4 mcg/kg/hr TITRATE CECE 44.579 mls/hr Administration Protocol 0.2 MCG/KG/HR Cefepime HCl 2 gm in 100 mls @ 200 mls/hr 02/02/21 22:00 02/04/21 21:35 Cefepime/Ns 2 Gm/100 Ml IV 02/05/21 23:59 200 mls/hr QHS CECE Administration Sodium Chloride 100 mls @ 999 mls/hr 02/04/21 13:00 Nacl 0.9% IV [place] PRN Hypotension Multi-Ingred Cream/Lotion/Oil/Oint 1 applic 01/22/21 22:39 02/01/21 09:33 Mineral Oil/Petrolatum, White Ophth Oint 3.5 Gm OU 1 applic Q4HR PRN Administration Dry Eye(s) Ondansetron HCl 4 mg 01/23/21 02:17 Ondansetron 4 Mg/2 Ml Inj IV Q8H PRN Nausea And Vomiting Simple Syrup 15 ml 01/26/21 14:25 Simple Syrup 15 Ml FEEDTUBE PRN PRN Hypoglycemia Simple Syrup 30 ml 01/26/21 14:25 Simple Syrup 15 Ml FEEDTUBE PRN PRN Hypoglycemia Sodium Bicarbonate 325 mg 01/26/21 14:25 Sodium Bicarbonate 325 Mg Tab FEEDTUBE PRN PRN For Clogged Feeding Tube Nutrition/Malnutrition Assess - Dietary Evaluation Nutrition/Malnutrition Findings: Nutrition Notes Start: 01/26/21 13:59 Freq: Status: Active Protocol: Document 02/05/21 12:59 CW (Rec: 02/05/21 13:09 CW [id number]) Nutrition Notes Initial or Follow up Reassessment Current Diagnosis Acute Kidney Injury,Diabetes, Sepsis,Hypertension, Respiratory Failure, Hyperlipidemia Other Pertinent Diagnosis on HD, COVID-19 (+), bilat pneu Current Diet TF - Nepro at 30 ml/hr Labs/Tests 02/04/2021 Na 149 BG 139 BUN 99 Cr 8.5 P 8.4 Pertinent Medications levophed propfol at 11.022(290 kcal provided) Height 5 ft 8 in Weight 131.7 kg [place] Body Weight (kg) 70.00 BMI 44.1 Weight change and time frame weight stable Weight Status Morbidly Obese Subjective/Other Information F/U for proning, HD, and vent status. Propofol has been increased at this time. Will adjust accordingly. Weight stable. Pt continues to receive HD daily. TF running at goal of 30 at this time. TF is being well tolerated. Burn Absent Trauma Absent GI Symptoms None Difficulty In Swallowing Skin Integrity/Comment Intact Current % PO Negligible Minimum of two criteria No physical signs of malnutrition #1 Nutrition Diagnosis Inadequate oral intake Diagnosis Progress(for reassessment Continues documentation) Is patient on ventilator? Yes Is Patient Ambulatory and/or Out of Bed No REE-([facility]-confined to bed) 2514.168 Kcal/Kg value to use for calculation 14 Approximate Energy Requirements Using 1844 kcal/Kg Calculation Used for Recommendations Kcal/kg Additional Notes Pro needs >1.2g/kg adjBW: > 115g/day for HD needs Fluid needs per MD Nutrition Intervention Change Diet Order: Increase TF regimen and flush Nutrition Support: If running continuous feed x 24 hrs without proning: Nepro at 36 ml/hr with a free water flush of 400ml water flush q4h for hypernatremia, Once resolved resume flush of 200 ml q4h. If in prone position x 12/hr day: While in prone position: Nepro at 20 ml/hr with free water flush of 100 ml q4h or per MD order. While in supine position: Nepro at 65 ml/hr with a free water flush of 400 ml q4h for hypernatremia. Once hypernatremia resolve, free water flush of 200 ml q4h or per MD order. Kcal 1,555 Protein (gm) 70 Fluid (mL) 628 Goal #1 TF tolerance Goal #2 TF to meet at least 75% energy and pro needs Anticipated Discharge Needs: unable to determine at this time Follow-Up By: 02/10/21 Additional Comments F/U proning, propofol, HD, vent status
[2021-02-05] MEDS ORDERED: VANCOMYCIN 1,750 MG in SODIUM CHLORIDE 0.9% 500 ML 500 ML IV ONE (17:00)
[2021-02-05] MEDS ORDERED: VANCOMYCIN PHARMACY TO DOSE IV SCH (17:00)
--- NOTE | 2021-02-05 19:29 | Vascular Lab Report ---
Bilateral lower extremity Doppler venous ultrasound INDICATION: DVT FINDINGS: Bilateral common femoral veins, superficial femoral veins and popliteal veins have normal c ompressibility and phasic flow. IMPRESSION: No evidence for DVT in bilateral lower extremities. Signer Name: Edinson Rick MD Signed: 02/05/2021 7:25 PM Workstation Name: [id number]
[2021-02-05] MEDS: CEFEPIME/NS 2 GM/100 ML 2 GM/100 ML BAG IV SCH (21:38)
[2021-02-06] MEDS: dexmedeTOMIDine 1,000 MCG in SODIUM CHLORIDE 0.9% 250ML 250 ML IV SCH ×3 (00:56→19:16)
[2021-02-06] MEDS: fentaNYL DRIP Premix 2,000 MCG/100 ML BAG IV SCH ×5 (03:05→22:16)
[2021-02-06 07:31] LABS: Calcium 6.7 mg/dL (8.4-10.2)
[2021-02-06 07:34] LABS: Hematocrit 28.6 % (35.5-45.6); Hemoglobin 9.3 gm/dl (11.8-15.2); Mean Corpuscular HGB Conc 32 % (32-34); Mean Corpuscular Volume 96 fl (84-94); Platelet Count 227 K/mm3 (140-440); Red Blood Count 2.98 M/mm3 (3.65-5.03); Red Cell Distribution Width 14.2 % (13.2-15.2)
--- NOTE | 2021-02-06 08:32 | Progress Note ---
Assessment and Plan Acute Hypoxic respiratory failure COVID-19 PNA Severe sepsis with septic shock Acute kidney injury secondary to ATN Hyperkalemia Hypernatremia DM2 on insulin Plan: HD today and tomorrow to help with acidosis and hypoxia Assess need for HD on daily basis Initiated on HD on 02/03/21 s/p Right IJ Trialysis dialysis catheter placement by Dr Reddy On free water flushes to 400 ml Strict I&O Renally dose meds Carlton Pitts MD [phone] Subjective Date of service: 02/06/21 Principal diagnosis: DEISI Interval history: on isolation for COVID-19, remains to have severe resp acidosis Objective - Vital Signs Vital signs: Vital Signs - 12hr 02/05/21 02/05/21 02/05/21 20:45 20:57 21:00 Temperature Pulse Rate 97 H 98 H 98 H Pulse Rate [ From Monitor] Respiratory 23 24 Rate Blood Pressure 88/52 88/52 107/51 O2 Sat by Pulse 95 95 95 Oximetry 02/05/21 02/05/21 02/05/21 21:15 21:18 22:00 Temperature Pulse Rate 98 H 98 H 99 H Pulse Rate [ From Monitor] Respiratory 24 23 25 H Rate Blood Pressure 108/50 108/50 108/55 O2 Sat by Pulse 94 94 94 Oximetry 02/05/21 02/06/21 02/06/21 23:00 00:00 00:35 Temperature 100.1 F H Pulse Rate 107 H 104 H 104 H Pulse Rate [ 94 H From Monitor] Respiratory 24 26 H Rate Blood Pressure 108/49 112/55 99/55 O2 Sat by Pulse 94 95 95 Oximetry 02/06/21 02/06/21 02/06/21 01:00 02:00 03:00 Temperature Pulse Rate 103 H 99 H 106 H Pulse Rate [ From Monitor] Respiratory 25 H 26 H 26 H Rate Blood Pressure 104/57 89/53 119/64 O2 Sat by Pulse 95 94 96 Oximetry 02/06/21 02/06/21 02/06/21 04:00 05:00 05:10 Temperature 99.9 F H Pulse Rate 107 H 102 H 106 H Pulse Rate [ 94 H From Monitor] Respiratory 28 H 17 Rate Blood Pressure 107/57 102/60 102/60 O2 Sat by Pulse 94 94 92 Oximetry 02/06/21 02/06/21 02/06/21 06:00 07:00 08:00 Temperature 100.1 F H Pulse Rate 106 H 109 H Pulse Rate [ From Monitor] Respiratory 29 H 26 H Rate Blood Pressure 134/53 115/58 O2 Sat by Pulse 96 95 Oximetry - Lab 02/06/21 Unknown 02/06/21 Unknown Most recent lab results ABG pH 7.159 (7.320-7.450) L 02/06/21 04:30 ABG pCO2 59.2 mm Hg 02/02/21 05:35 ABG pO2 72.5 mm Hg (80.0-90.0) L 02/02/21 05:35 ABG HCO3 22.3 mmol/L (20.0-26.0) 02/02/21 05:35 ABG O2 Saturation 89.3 (0-100) 02/06/21 04:30 Calcium 6.7 mg/dL (8.4-10.2) L 02/06/21 Unknown Phosphorus 8.00 mg/dL (2.5-4.5) H D 02/06/21 Unknown Magnesium 2.20 mg/dL (1.7-2.3) 02/04/21 04:45 Urine Creatinine 53.0 mg/dL (0.1-20.0) H 01/30/21 12:00 Urine Sodium 28 mmol/L 01/22/21 22:39 Medications & Allergies - Medications Allergies/Adverse Reactions: Allergies No Known Allergies Allergy (Unverified 03/12/20 13:41) Home Medications: Home Medications Medication Instructions Recorded Confirmed Last Taken Type Clindamycin [Clindamycin CAP] 300 mg PO Q8H #21 cap 03/12/20 Unknown Rx Insulin NPH/Regular [Novolin 70/30] 18 unit SUB-Q TIDAC #1 vial 03/12/20 Unknown Rx Syringe-Needle,Insulin,0.5 ml 1 box MC TID #1 box 03/12/20 Unknown Rx [Insulin Syringe/Needle 0.5 ML] Active Medications: Generic Name Dose Route Start Last Admin Trade Name Freq PRN Reason Stop Dose Admin Acetaminophen 650 mg 01/23/21 02:25 Acetaminophen 650 Mg Rect Supp [place] Q4H PRN Pain, Mild (1-3) Acetaminophen 650 mg 01/24/21 12:58 02/05/21 22:06 Acetaminophen 325 Mg/10.15 Ml Oral Liqd Unit Dose FEEDTUBE 650 mg Q6H PRN Administration Pain, Mild (1-3) Lipase/Protease/Amylase 1 each 01/26/21 14:25 Lipase 10,500/Protease 25,000/Amylase 43,750 (Units) Dr Cap FEEDTUBE PRN PRN For Clogged Feeding Tube Dextrose 50 ml 01/27/21 07:24 Dextrose 50% In Water (25gm) 50 Ml Syringe IV Q30MIN PRN Hypoglycemia Protocol Enoxaparin Sodium 120 mg 01/26/21 11:00 02/05/21 09:27 Enoxaparin 120 Mg/0.8 Ml Inj SUB-Q 120 mg Q24HR CECE Administration Famotidine 20 mg 01/24/21 10:00 02/05/21 09:26 Famotidine 20 Mg/2 Ml Inj IV 20 mg DAILY CECE Administration Fentanyl 50 mcg 01/22/21 22:39 Fentanyl 100 Mcg/2 Ml Inj IV Q10MIN PRN ANALGESIA Hydrophilic Ointment 1 applic 01/22/21 22:39 Lip Therapy Vaseline TP Q2HR PRN Dry Lips Fentanyl Citrate 2,000 mcg in 100 mls @ 6.124 mls/hr 01/22/21 23:00 02/06/21 03:05 Fentanyl Drip Premix IV 4 mcg/kg/hr TITR CECE 24.494 mls/hr Administration Protocol 1 MCG/KG/HR Propofol 1,000 mg in 100 mls @ 3.674 mls/hr 01/22/21 23:45 02/06/21 04:55 Diprivan 10 Mg/Ml IV 15 mcg/kg/min TITR CECE 11.022 mls/hr Administration Protocol 5 MCG/KG/MIN Norepinephrine 4 mg in 250 mls @ 7.5 mls/hr 01/28/21 14:00 02/06/21 04:55 Levophed Drip 4 Mg/Ns 250 Ml IV 6 mcg/min TITR CECE 22.5 mls/hr Titration Protocol 2 MCG/MIN Dexmedetomidine HCl 1,000 mcg/ 260 mls @ 6.368 mls/hr 01/30/21 20:00 02/06/21 00:56 Sodium Chloride IV 1.4 mcg/kg/hr TITRATE CECE 44.579 mls/hr Administration Protocol 0.2 MCG/KG/HR Sodium Chloride 100 mls @ 999 mls/hr 02/04/21 13:00 Nacl 0.9% IV [place] PRN Hypotension Multi-Ingred Cream/Lotion/Oil/Oint 1 applic 01/22/21 22:39 02/01/21 09:33 Mineral Oil/Petrolatum, White Ophth Oint 3.5 Gm OU 1 applic Q4HR PRN Administration Dry Eye(s) Ondansetron HCl 4 mg 01/23/21 02:17 Ondansetron 4 Mg/2 Ml Inj IV Q8H PRN Nausea And Vomiting Simple Syrup 15 ml 01/26/21 14:25 Simple Syrup 15 Ml FEEDTUBE PRN PRN Hypoglycemia Simple Syrup 30 ml 01/26/21 14:25 Simple Syrup 15 Ml FEEDTUBE PRN PRN Hypoglycemia Sodium Bicarbonate 325 mg 01/26/21 14:25 Sodium Bicarbonate 325 Mg Tab FEEDTUBE PRN PRN For Clogged Feeding Tube
[2021-02-06] MEDS: ENOXAPARIN 120 MG/0.8 ML INJ SUB-Q SCH (09:13)
[2021-02-06] MEDS: FAMOTIDINE 20 MG/2 ML INJ IV SCH (09:13)
[2021-02-06 09:38] LABS: Band Neutrophils # (Manual) 0.1 K/mm3; Total Cells Counted 100
[2021-02-06 09:39] LABS: Platelet Estimate Consistent w Auto; RBC Morphology Normal
[2021-02-06 10:10] LABS: ABG Methemoglobin 0.6 % (0.0-1.5); ABG Oxygen Saturation 93.4 % (95.0-99.0); ABG PCO2 72.5 mm Hg; ABG PO2 83.4 mm Hg (80.0-90.0)
[2021-02-06 10:32] LABS: ABG PH 7.138 pH Units (7.350-7.450)
--- NOTE | 2021-02-06 10:53 | Progress Note ---
Assessment and Plan 60 y/o male with ARDS secondary most likely to COVID 19 pneumonia. 02/06/21: Will add bicarb drip at 125/hr. Giving 2 amps of NaHCO3 push now. Will repeat ABG this afternoon, may just ask for Art Line if possible. HD today per renal and I spoke with them about the bicarb drip. Long discussion with Sister, Significant and other and another family member on the phone on yesterday. I tried my best to explain the severity of the clinical state but not sure if they fully understood. The patient is very very ill and history suggests that his outcome will be poor (intubated with covid and renal failure on dialysis). This was expressed with the family. Will continue all supportive measures. Checking triglyceride levels today. 02/05/21: WIll increase PEEP to 16. Can increase pressors if needed for BP control during HD. Follow up cultures. If negative will scan legs and arms again for VTE. Repeat ABG at 1400 today. Will speak with sister and Girlfriend on phone today. 02/04/21: HD again today per renal notes. Likely will need daily HD. New fevers. Will draw blood and urine cultures if able to still make urine.. Repeat CXR. May need to check dopplers if all of those studies are negative. Wean FIO2 as tolerated. Unable to tolerate proning. Guarded to poor prognosis. 02/03/21: HD today per renal. Wean FiO2 as tolerated. No further proning as patient cannot tolerate it, however with volume removal, may consider in the future. Use pressors to keep MAPs 65 and greater for HD purporses so volume can be removed. (IJ was wide open (filled with blood)) with patient sitting up at 45 degrees. Guarded prognosis. 02/02/21: After renal speaks with family, will place vascath today. Agree with bicarb drip but will order some pushes now to help with pH. Overall prognosis is very very guarded to poor now that patient is COVID positive and requiring renal replacement therapy. Mortality is very high in these patients. Continue steroid therapy. Unable to tolerate proning. 01/30/21: Will plan for proning later today. Goal will be at least 12hrs but long is okay. Speaking with pharmacy to see if we can get paralytic for a longer period of time. Regardless will prone. Continue heavy sedation. BP stable. Continue steroids. Very very guarded prognosis. 01/29/21: will increase tidal volume and/or increase respiratory rate. Repeat ABG this afternoon. Continue paralytic and adequate sedation. Continue steroid and remdesivir, follow up any renal recs. Prognosis remains guarded. Wean Fio2 for sats >88% 01/28/21: Increased PEEP to 16. Will paralyze patient today and increase sedation. Ordering picc line for possible vasopressor therapy needs. Continue BID steroids. Renal function is slightly better today with fluids but could be making oxygenation worse. Not able to diurese. Still making urine. Continue Remdesivir. Watch for fever curve. If not improvement in the next 24 hours with paralyzing, will prone tomorrow morning. 01/27/21: Continue PEEP at 14. No weaning until FiO2 is at or below 40-45%. Continue anticoagulation. Getting Remdesivir now. Continue BID steroids. Renal has increased the fluids. Monitor urine output and renal function. Overall prognosis is very very guarded, especially if renal status worsens. 01/26/21: Increase PEEP to 14. Will add Precedex therapy. If patient does not respond to increases in PEEP may need to prone. Will place patient on lovenox and will feed patient. Remdesivir coming. Continue BID steroids. Prognosis is guarded. 01/25/21: Hold on proning today. Continue BID steroids. ABG this AM was adequate. Pending abg tomorrow, may increase PEEP if not able to wean FiO2 any further. Per charting Remdesivir to arrive tomorrow. Guarded prognosis. 01/24/21: Continue BID steroids. No abg done this am but able to wean FiO2. Will obtain ABG in the am. Hold on proning for right now. Renal following, would like to diurese but they are given fluids for deisi. Agree with ID assessment and note. Guarded prognosis. 1. Increase steroids to BID given size 2. Check with ID to see if he is a candidate for remdesivir or any other experiemental therapy 3. Hold on proning for right now 4. Renal consulted and giving IVF's currently Guarded prognosis. CCT 31 minutes. Subjective Date of service: 02/06/21 Principal diagnosis: DEISI Interval history: Becoming more hypercapnic. Worsening pH but oxygen is better. Sedations is present and adequate. Remainder is negative. Fever curve appears to be trending down. Objective Vital Signs - 12hr 02/05/21 02/06/21 02/06/21 23:00 00:00 00:35 Temperature 100.1 F H Pulse Rate 107 H 104 H 104 H Pulse Rate [ 94 H From Monitor] Respiratory 24 26 H Rate Blood Pressure 108/49 112/55 99/55 O2 Sat by Pulse 94 95 95 Oximetry 02/06/21 02/06/21 02/06/21 01:00 02:00 03:00 Temperature Pulse Rate 103 H 99 H 106 H Pulse Rate [ From Monitor] Respiratory 25 H 26 H 26 H Rate Blood Pressure 104/57 89/53 119/64 O2 Sat by Pulse 95 94 96 Oximetry 02/06/21 02/06/21 02/06/21 04:00 05:00 05:10 Temperature 99.9 F H Pulse Rate 107 H 102 H 106 H Pulse Rate [ 94 H From Monitor] Respiratory 28 H 17 Rate Blood Pressure 107/57 102/60 102/60 O2 Sat by Pulse 94 94 92 Oximetry 02/06/21 02/06/21 02/06/21 06:00 07:00 08:00 Temperature 100.1 F H Pulse Rate 106 H 109 H 110 H Pulse Rate [ 110 H From Monitor] Respiratory 29 H 26 H 25 H Rate Blood Pressure 134/53 115/58 110/53 O2 Sat by Pulse 96 95 96 Oximetry 02/06/21 02/06/21 08:40 09:00 Temperature Pulse Rate 113 H 113 H Pulse Rate [ From Monitor] Respiratory 26 H Rate Blood Pressure 109/58 98/56 O2 Sat by Pulse 96 96 Oximetry Constitutional: comatose Eyes: non-icteric ENT: other (orally intubated and sedated) Neck: supple Effort: mildly labored Ascultation: Bilateral: clear Percussion: Bilateral: not dull Cardiovascular: regular rate and rhythm Gastrointestinal: normoactive bowel sounds CBC and BMP: 02/06/21 Unknown 02/06/21 Unknown ABG, PT/INR, D-dimer: ABG ABG pH 7.138 pH Units (7.350-7.450) L* 02/06/21 09:45 POC ABG pCO2 76.3 mmHg (32.0-48.0) H 02/06/21 04:30 ABG pCO2 72.5 mm Hg 02/06/21 09:45 POC ABG pO2 66.9 mmHg (83-108) L 02/06/21 04:30 ABG pO2 83.4 mm Hg (80.0-90.0) 02/06/21 09:45 POC ABG HCO3 26.5 02/06/21 04:30 ABG O2 Saturation 93.4 % (95.0-99.0) L 02/06/21 09:45 PT/INR, D-dimer D-Dimer > 58519 ng/mlDDU (0-234) H 01/30/21 04:00 Abnormal lab findings: Abnormal Labs 01/22/21 01/22/21 01/22/21 22:39 22:57 22:57 WBC RBC Hgb Hct MCV MCH MCHC RDW Plt Count Lymph % (Auto) 6.6 L Lymph # (Auto) 0.5 L Seg Neutrophils % 87.6 H Seg Neuts % (Manual) Lymphocytes % (Manual) Seg Neutrophils # Man Lymphocytes # (Manual) Eosinophils # (Manual) D-Dimer ABG pH POC ABG pCO2 POC ABG pO2 ABG pO2 ABG HCO3 ABG O2 Saturation ABG Base Excess ABG Hemoglobin ABG Oxyhemoglobin ABG Sodium ABG Potassium ABG Chloride ABG Glucose Oxyhemoglobin Carboxyhemoglobin Sodium 129 L Potassium 3.4 L Chloride 90.4 L Carbon Dioxide BUN 34 H Creatinine 1.5 H Glucose 146 H POC Glucose Hemoglobin A1c Lactic Acid Calcium 7.8 L Phosphorus Magnesium Ferritin Total Bilirubin AST 75 H ALT 57 H Lactate Dehydrogenase C-Reactive Protein Albumin 2.9 L Triglycerides Arterial Blood Glucose Arterial Blood Ionized Calcium Urine Creatinine 301.2 H Coronavirus (PCR) 01/22/21 01/22/21 01/22/21 22:57 22:57 22:57 WBC RBC Hgb Hct MCV MCH MCHC RDW Plt Count Lymph % (Auto) Lymph # (Auto) Seg Neutrophils % Seg Neuts % (Manual) Lymphocytes % (Manual) Seg Neutrophils # Man Lymphocytes # (Manual) Eosinophils # (Manual) D-Dimer 1173.89 H ABG pH POC ABG pCO2 POC ABG pO2 ABG pO2 ABG HCO3 ABG O2 Saturation ABG Base Excess ABG Hemoglobin ABG Oxyhemoglobin ABG Sodium ABG Potassium ABG Chloride ABG Glucose Oxyhemoglobin Carboxyhemoglobin Sodium Potassium Chloride Carbon Dioxide BUN Creatinine Glucose 149 H POC Glucose Hemoglobin A1c Lactic Acid 2.10 H* Calcium Phosphorus Magnesium Ferritin Total Bilirubin AST ALT Lactate Dehydrogenase 685 H C-Reactive Protein 30.40 H Albumin Triglycerides Arterial Blood Glucose Arterial Blood Ionized Calcium Urine Creatinine Coronavirus (PCR) 01/22/21 01/23/21 01/23/21 22:57 08:41 10:01 WBC RBC Hgb Hct MCV MCH MCHC RDW Plt Count Lymph % (Auto) Lymph # (Auto) Seg Neutrophils % Seg Neuts % (Manual) Lymphocytes % (Manual) Seg Neutrophils # Man Lymphocytes # (Manual) Eosinophils # (Manual) D-Dimer ABG pH POC ABG pCO2 POC ABG pO2 ABG pO2 ABG HCO3 ABG O2 Saturation ABG Base Excess ABG Hemoglobin ABG Oxyhemoglobin ABG Sodium ABG Potassium ABG Chloride ABG Glucose Oxyhemoglobin Carboxyhemoglobin Sodium 131 L Potassium Chloride 88.7 L Carbon Dioxide 18 L BUN 36 H Creatinine 1.6 H Glucose 147 H POC Glucose Hemoglobin A1c Lactic Acid Calcium 7.5 L Phosphorus Magnesium Ferritin 1207.0 H Total Bilirubin AST ALT Lactate Dehydrogenase C-Reactive Protein Albumin Triglycerides Arterial Blood Glucose Arterial Blood Ionized Calcium Urine Creatinine Coronavirus (PCR) Positive A 01/23/21 01/23/21 01/24/21 20:49 Unknown 00:10 WBC RBC Hgb Hct MCV MCH MCHC RDW Plt Count Lymph % (Auto) Lymph # (Auto) Seg Neutrophils % Seg Neuts % (Manual) Lymphocytes % (Manual) Seg Neutrophils # Man Lymphocytes # (Manual) Eosinophils # (Manual) D-Dimer ABG pH POC ABG pCO2 POC ABG pO2 ABG pO2 165.4 H ABG HCO3 ABG O2 Saturation ABG Base Excess -2.5 L ABG Hemoglobin ABG Oxyhemoglobin ABG Sodium ABG Potassium ABG Chloride ABG Glucose Oxyhemoglobin Carboxyhemoglobin Sodium 130 L Potassium Chloride 91.0 L Carbon Dioxide 20 L BUN 52 H Creatinine 3.8 H D Glucose 150 H POC Glucose 125 H Hemoglobin A1c Lactic Acid Calcium 8.0 L Phosphorus Magnesium Ferritin Total Bilirubin AST 42 H ALT Lactate Dehydrogenase C-Reactive Protein Albumin 2.4 L Triglycerides Arterial Blood Glucose Arterial Blood Ionized Calcium Urine Creatinine Coronavirus (PCR) 01/24/21 01/24/21 01/24/21 05:05 05:05 05:05 WBC 14.0 H RBC Hgb Hct MCV 95 H MCH 33 H MCHC RDW Plt Count Lymph % (Auto) Lymph # (Auto) Seg Neutrophils % Seg Neuts % (Manual) 91.0 H Lymphocytes % (Manual) 4.0 L Seg Neutrophils # Man 12.7 H Lymphocytes # (Manual) 0.6 L Eosinophils # (Manual) D-Dimer 6159.48 H ABG pH POC ABG pCO2 POC ABG pO2 ABG pO2 ABG HCO3 ABG O2 Saturation ABG Base Excess ABG Hemoglobin ABG Oxyhemoglobin ABG Sodium ABG Potassium ABG Chloride ABG Glucose Oxyhemoglobin Carboxyhemoglobin Sodium Potassium Chloride Carbon Dioxide BUN Creatinine Glucose POC Glucose Hemoglobin A1c Lactic Acid Calcium Phosphorus Magnesium Ferritin 1178.0 H Total Bilirubin AST ALT Lactate Dehydrogenase C-Reactive Protein Albumin Triglycerides Arterial Blood Glucose Arterial Blood Ionized Calcium Urine Creatinine Coronavirus (PCR) 01/24/21 01/24/21 01/24/21 05:05 05:05 05:05 WBC RBC Hgb Hct MCV MCH MCHC RDW Plt Count Lymph % (Auto) Lymph # (Auto) Seg Neutrophils % Seg Neuts % (Manual) Lymphocytes % (Manual) Seg Neutrophils # Man Lymphocytes # (Manual) Eosinophils # (Manual) D-Dimer ABG pH POC ABG pCO2 POC ABG pO2 ABG pO2 ABG HCO3 ABG O2 Saturation ABG Base Excess ABG Hemoglobin ABG Oxyhemoglobin ABG Sodium ABG Potassium ABG Chloride ABG Glucose Oxyhemoglobin Carboxyhemoglobin Sodium 132 L Potassium Chloride 93.1 L Carbon Dioxide 21 L BUN 57 H Creatinine 3.7 H Glucose 133 H POC Glucose Hemoglobin A1c Lactic Acid 2.20 H* Calcium 7.7 L Phosphorus Magnesium Ferritin Total Bilirubin AST ALT Lactate Dehydrogenase 658 H C-Reactive Protein 33.20 H Albumin 2.4 L Triglycerides Arterial Blood Glucose Arterial Blood Ionized Calcium Urine Creatinine Coronavirus (PCR) 01/24/21 01/24/21 01/24/21 05:34 06:00 17:35 WBC RBC Hgb Hct MCV MCH MCHC RDW Plt Count Lymph % (Auto) Lymph # (Auto) Seg Neutrophils % Seg Neuts % (Manual) Lymphocytes % (Manual) Seg Neutrophils # Man Lymphocytes # (Manual) Eosinophils # (Manual) D-Dimer ABG pH POC ABG pCO2 POC ABG pO2 ABG pO2 ABG HCO3 ABG O2 Saturation ABG Base Excess ABG Hemoglobin ABG Oxyhemoglobin ABG Sodium ABG Potassium ABG Chloride ABG Glucose Oxyhemoglobin Carboxyhemoglobin Sodium Potassium Chloride Carbon Dioxide BUN Creatinine Glucose POC Glucose 136 H 137 H Hemoglobin A1c Lactic Acid Calcium Phosphorus Magnesium 2.80 H Ferritin Total Bilirubin AST ALT Lactate Dehydrogenase C-Reactive Protein Albumin Triglycerides Arterial Blood Glucose Arterial Blood Ionized Calcium Urine Creatinine Coronavirus (PCR) 01/25/21 01/25/21 01/25/21 04:15 05:40 05:40 WBC RBC Hgb Hct MCV 95 H MCH 33 H MCHC 35 H RDW Plt Count Lymph % (Auto) Lymph # (Auto) Seg Neutrophils % Seg Neuts % (Manual) 95.0 H Lymphocytes % (Manual) 3.0 L Seg Neutrophils # Man 7.8 H Lymphocytes # (Manual) 0.2 L Eosinophils # (Manual) D-Dimer ABG pH POC ABG pCO2 POC ABG pO2 63.2 L ABG pO2 ABG HCO3 ABG O2 Saturation ABG Base Excess ABG Hemoglobin ABG Oxyhemoglobin 89.6 L ABG Sodium ABG Potassium ABG Chloride ABG Glucose 165 H Oxyhemoglobin Carboxyhemoglobin 0.3 L Sodium Potassium Chloride Carbon Dioxide BUN 67 H Creatinine 3.4 H Glucose 153 H POC Glucose Hemoglobin A1c Lactic Acid Calcium 7.5 L Phosphorus Magnesium Ferritin Total Bilirubin 1.40 H AST 62 H ALT Lactate Dehydrogenase C-Reactive Protein Albumin 2.6 L Triglycerides Arterial Blood Glucose 165 H Arterial Blood Ionized Calcium 4.3 L Urine Creatinine Coronavirus (PCR) 01/25/21 01/25/21 01/25/21 05:59 12:00 17:17 WBC RBC Hgb Hct MCV MCH MCHC RDW Plt Count Lymph % (Auto) Lymph # (Auto) Seg Neutrophils % Seg Neuts % (Manual) Lymphocytes % (Manual) Seg Neutrophils # Man Lymphocytes # (Manual) Eosinophils # (Manual) D-Dimer ABG pH POC ABG pCO2 POC ABG pO2 ABG pO2 ABG HCO3 ABG O2 Saturation ABG Base Excess ABG Hemoglobin ABG Oxyhemoglobin ABG Sodium ABG Potassium ABG Chloride ABG Glucose Oxyhemoglobin Carboxyhemoglobin Sodium Potassium Chloride Carbon Dioxide BUN Creatinine Glucose POC Glucose 140 H 143 H 149 H Hemoglobin A1c Lactic Acid Calcium Phosphorus Magnesium Ferritin Total Bilirubin AST ALT Lactate Dehydrogenase C-Reactive Protein Albumin Triglycerides Arterial Blood Glucose Arterial Blood Ionized Calcium Urine Creatinine Coronavirus (PCR) 01/25/21 01/26/21 01/26/21 23:41 03:43 05:46 WBC RBC Hgb Hct MCV MCH MCHC RDW Plt Count Lymph % (Auto) Lymph # (Auto) Seg Neutrophils % Seg Neuts % (Manual) Lymphocytes % (Manual) Seg Neutrophils # Man Lymphocytes # (Manual) Eosinophils # (Manual) D-Dimer ABG pH POC ABG pCO2 POC ABG pO2 70.0 L ABG pO2 ABG HCO3 ABG O2 Saturation ABG Base Excess ABG Hemoglobin ABG Oxyhemoglobin 91.9 L ABG Sodium ABG Potassium ABG Chloride 109.0 H ABG Glucose 165 H Oxyhemoglobin Carboxyhemoglobin Sodium Potassium Chloride Carbon Dioxide BUN Creatinine Glucose POC Glucose 132 H 161 H Hemoglobin A1c Lactic Acid Calcium Phosphorus Magnesium Ferritin Total Bilirubin AST ALT Lactate Dehydrogenase C-Reactive Protein Albumin Triglycerides Arterial Blood Glucose 165 H Arterial Blood Ionized Calcium 4.5 L Urine Creatinine Coronavirus (PCR) 01/26/21 01/26/21 01/26/21 05:47 05:47 05:47 WBC RBC Hgb Hct 35.3 L MCV 96 H MCH 33 H MCHC RDW Plt Count Lymph % (Auto) Lymph # (Auto) Seg Neutrophils % Seg Neuts % (Manual) 96.0 H Lymphocytes % (Manual) 2.0 L Seg Neutrophils # Man Lymphocytes # (Manual) 0.1 L Eosinophils # (Manual) D-Dimer > 64731 H ABG pH POC ABG pCO2 POC ABG pO2 ABG pO2 ABG HCO3 ABG O2 Saturation ABG Base Excess ABG Hemoglobin ABG Oxyhemoglobin ABG Sodium ABG Potassium ABG Chloride ABG Glucose Oxyhemoglobin Carboxyhemoglobin Sodium Potassium Chloride Carbon Dioxide BUN 57 H Creatinine 2.2 H Glucose 185 H POC Glucose Hemoglobin A1c Lactic Acid Calcium 8.1 L Phosphorus Magnesium Ferritin Total Bilirubin AST ALT Lactate Dehydrogenase C-Reactive Protein Albumin Triglycerides Arterial Blood Glucose Arterial Blood Ionized Calcium Urine Creatinine Coronavirus (PCR) 01/26/21 01/26/21 01/26/21 05:47 05:47 05:47 WBC RBC Hgb Hct MCV MCH MCHC RDW Plt Count Lymph % (Auto) Lymph # (Auto) Seg Neutrophils % Seg Neuts % (Manual) Lymphocytes % (Manual) Seg Neutrophils # Man Lymphocytes # (Manual) Eosinophils # (Manual) D-Dimer ABG pH POC ABG pCO2 POC ABG pO2 ABG pO2 ABG HCO3 ABG O2 Saturation ABG Base Excess ABG Hemoglobin ABG Oxyhemoglobin ABG Sodium ABG Potassium ABG Chloride ABG Glucose Oxyhemoglobin Carboxyhemoglobin Sodium Potassium Chloride 107.1 H Carbon Dioxide BUN 56 H Creatinine 2.2 H Glucose 188 H POC Glucose Hemoglobin A1c Lactic Acid Calcium 8.0 L Phosphorus Magnesium Ferritin 1178.0 H Total Bilirubin 1.50 H AST ALT Lactate Dehydrogenase 588 H C-Reactive Protein 40.10 H Albumin 2.2 L Triglycerides Arterial Blood Glucose Arterial Blood Ionized Calcium Urine Creatinine Coronavirus (PCR) 01/26/21 01/26/21 01/26/21 11:34 18:17 23:20 WBC RBC Hgb Hct MCV MCH MCHC RDW Plt Count Lymph % (Auto) Lymph # (Auto) Seg Neutrophils % Seg Neuts % (Manual) Lymphocytes % (Manual) Seg Neutrophils # Man Lymphocytes # (Manual) Eosinophils # (Manual) D-Dimer ABG pH POC ABG pCO2 POC ABG pO2 ABG pO2 ABG HCO3 ABG O2 Saturation ABG Base Excess ABG Hemoglobin ABG Oxyhemoglobin ABG Sodium ABG Potassium ABG Chloride ABG Glucose Oxyhemoglobin Carboxyhemoglobin Sodium Potassium Chloride Carbon Dioxide BUN Creatinine Glucose POC Glucose 129 H 205 H 155 H Hemoglobin A1c Lactic Acid Calcium Phosphorus Magnesium Ferritin Total Bilirubin AST ALT Lactate Dehydrogenase C-Reactive Protein Albumin Triglycerides Arterial Blood Glucose Arterial Blood Ionized Calcium Urine Creatinine Coronavirus (PCR) 01/27/21 01/27/21 01/27/21 02:45 05:29 05:29 WBC RBC 3.58 L Hgb 11.7 L Hct 34.9 L MCV 97 H MCH 33 H MCHC RDW Plt Count Lymph % (Auto) Lymph # (Auto) Seg Neutrophils % Seg Neuts % (Manual) 88.0 H Lymphocytes % (Manual) 7.0 L Seg Neutrophils # Man Lymphocytes # (Manual) 0.5 L Eosinophils # (Manual) D-Dimer ABG pH 7.319 L POC ABG pCO2 50.7 H POC ABG pO2 63.0 L ABG pO2 ABG HCO3 ABG O2 Saturation ABG Base Excess ABG Hemoglobin ABG Oxyhemoglobin ABG Sodium 145.2 H ABG Potassium 5.1 H ABG Chloride 114.0 H ABG Glucose 178 H Oxyhemoglobin Carboxyhemoglobin Sodium Potassium Chloride Carbon Dioxide BUN Creatinine Glucose POC Glucose Hemoglobin A1c Lactic Acid Calcium Phosphorus Magnesium 4.00 H Ferritin Total Bilirubin AST ALT Lactate Dehydrogenase C-Reactive Protein Albumin Triglycerides Arterial Blood Glucose 178 H Arterial Blood Ionized Calcium Urine Creatinine Coronavirus (PCR) 01/27/21 01/27/21 01/27/21 05:29 05:29 05:31 WBC RBC Hgb Hct MCV MCH MCHC RDW Plt Count Lymph % (Auto) Lymph # (Auto) Seg Neutrophils % Seg Neuts % (Manual) Lymphocytes % (Manual) Seg Neutrophils # Man Lymphocytes # (Manual) Eosinophils # (Manual) D-Dimer ABG pH POC ABG pCO2 POC ABG pO2 ABG pO2 ABG HCO3 ABG O2 Saturation ABG Base Excess ABG Hemoglobin ABG Oxyhemoglobin ABG Sodium ABG Potassium ABG Chloride ABG Glucose Oxyhemoglobin Carboxyhemoglobin Sodium Potassium 5.2 H Chloride 109.6 H Carbon Dioxide BUN 67 H Creatinine 2.8 H Glucose 195 H POC Glucose 176 H Hemoglobin A1c Lactic Acid Calcium 7.9 L Phosphorus Magnesium Ferritin Total Bilirubin AST ALT Lactate Dehydrogenase C-Reactive Protein Albumin Triglycerides 160 H Arterial Blood Glucose Arterial Blood Ionized Calcium Urine Creatinine Coronavirus (PCR) 01/27/21 01/27/21 01/27/21 11:27 18:08 23:30 WBC RBC Hgb Hct MCV MCH MCHC RDW Plt Count Lymph % (Auto) Lymph # (Auto) Seg Neutrophils % Seg Neuts % (Manual) Lymphocytes % (Manual) Seg Neutrophils # Man Lymphocytes # (Manual) Eosinophils # (Manual) D-Dimer ABG pH POC ABG pCO2 POC ABG pO2 ABG pO2 ABG HCO3 ABG O2 Saturation ABG Base Excess ABG Hemoglobin ABG Oxyhemoglobin ABG Sodium ABG Potassium ABG Chloride ABG Glucose Oxyhemoglobin Carboxyhemoglobin Sodium Potassium Chloride Carbon Dioxide BUN Creatinine Glucose POC Glucose 189 H 212 H 175 H Hemoglobin A1c Lactic Acid Calcium Phosphorus Magnesium Ferritin Total Bilirubin AST ALT Lactate Dehydrogenase C-Reactive Protein Albumin Triglycerides Arterial Blood Glucose Arterial Blood Ionized Calcium Urine Creatinine Coronavirus (PCR) 01/28/21 01/28/21 01/28/21 03:58 04:00 04:00 WBC RBC Hgb Hct MCV MCH MCHC RDW Plt Count Lymph % (Auto) Lymph # (Auto) Seg Neutrophils % Seg Neuts % (Manual) Lymphocytes % (Manual) Seg Neutrophils # Man Lymphocytes # (Manual) Eosinophils # (Manual) D-Dimer > 44199 H ABG pH POC ABG pCO2 POC ABG pO2 52.9 L ABG pO2 ABG HCO3 ABG O2 Saturation ABG Base Excess ABG Hemoglobin ABG Oxyhemoglobin 84.1 L ABG Sodium 148.9 H ABG Potassium ABG Chloride 117.0 H ABG Glucose 194 H Oxyhemoglobin Carboxyhemoglobin Sodium Potassium Chloride Carbon Dioxide BUN Creatinine Glucose POC Glucose Hemoglobin A1c Lactic Acid Calcium Phosphorus Magnesium Ferritin Total Bilirubin AST ALT Lactate Dehydrogenase 679 H C-Reactive Protein 17.10 H Albumin Triglycerides Arterial Blood Glucose 194 H Arterial Blood Ionized Calcium Urine Creatinine Coronavirus (PCR) 01/28/21 01/28/21 01/28/21 04:00 05:00 06:00 WBC RBC 3.59 L Hgb 11.6 L Hct 34.8 L MCV 97 H MCH MCHC RDW Plt Count Lymph % (Auto) Lymph # (Auto) Seg Neutrophils % Seg Neuts % (Manual) 96.0 H Lymphocytes % (Manual) 3.0 L Seg Neutrophils # Man Lymphocytes # (Manual) 0.2 L Eosinophils # (Manual) D-Dimer ABG pH POC ABG pCO2 POC ABG pO2 ABG pO2 ABG HCO3 ABG O2 Saturation ABG Base Excess ABG Hemoglobin ABG Oxyhemoglobin ABG Sodium ABG Potassium ABG Chloride ABG Glucose Oxyhemoglobin Carboxyhemoglobin Sodium Potassium Chloride Carbon Dioxide BUN Creatinine Glucose POC Glucose 159 H Hemoglobin A1c Lactic Acid Calcium Phosphorus Magnesium Ferritin 798.0 H Total Bilirubin AST ALT Lactate Dehydrogenase C-Reactive Protein Albumin Triglycerides Arterial Blood Glucose Arterial Blood Ionized Calcium Urine Creatinine Coronavirus (PCR) 01/28/21 01/28/21 01/28/21 06:00 06:00 08:12 WBC RBC Hgb Hct MCV MCH MCHC RDW Plt Count Lymph % (Auto) Lymph # (Auto) Seg Neutrophils % Seg Neuts % (Manual) Lymphocytes % (Manual) Seg Neutrophils # Man Lymphocytes # (Manual) Eosinophils # (Manual) D-Dimer ABG pH POC ABG pCO2 POC ABG pO2 ABG pO2 ABG HCO3 ABG O2 Saturation ABG Base Excess ABG Hemoglobin ABG Oxyhemoglobin ABG Sodium ABG Potassium ABG Chloride ABG Glucose Oxyhemoglobin Carboxyhemoglobin Sodium Potassium Chloride 111.9 H Carbon Dioxide BUN 59 H Creatinine 2.2 H Glucose 189 H POC Glucose 181 H Hemoglobin A1c Lactic Acid Calcium 8.1 L Phosphorus Magnesium 3.20 H Ferritin Total Bilirubin AST ALT Lactate Dehydrogenase C-Reactive Protein Albumin Triglycerides Arterial Blood Glucose Arterial Blood Ionized Calcium Urine Creatinine Coronavirus (PCR) 01/28/21 01/28/21 01/28/21 12:03 16:43 23:51 WBC RBC Hgb Hct MCV MCH MCHC RDW Plt Count Lymph % (Auto) Lymph # (Auto) Seg Neutrophils % Seg Neuts % (Manual) Lymphocytes % (Manual) Seg Neutrophils # Man Lymphocytes # (Manual) Eosinophils # (Manual) D-Dimer ABG pH POC ABG pCO2 POC ABG pO2 ABG pO2 ABG HCO3 ABG O2 Saturation ABG Base Excess ABG Hemoglobin ABG Oxyhemoglobin ABG Sodium ABG Potassium ABG Chloride ABG Glucose Oxyhemoglobin Carboxyhemoglobin Sodium Potassium Chloride Carbon Dioxide BUN Creatinine Glucose POC Glucose 164 H 198 H 196 H Hemoglobin A1c Lactic Acid Calcium Phosphorus Magnesium Ferritin Total Bilirubin AST ALT Lactate Dehydrogenase C-Reactive Protein Albumin Triglycerides Arterial Blood Glucose Arterial Blood Ionized Calcium Urine Creatinine Coronavirus (PCR) 01/29/21 01/29/21 01/29/21 05:00 05:23 06:00 WBC RBC Hgb Hct MCV MCH MCHC RDW Plt Count Lymph % (Auto) Lymph # (Auto) Seg Neutrophils % Seg Neuts % (Manual) Lymphocytes % (Manual) Seg Neutrophils # Man Lymphocytes # (Manual) Eosinophils # (Manual) D-Dimer ABG pH 7.119 L POC ABG pCO2 87.1 H POC ABG pO2 ABG pO2 ABG HCO3 ABG O2 Saturation ABG Base Excess ABG Hemoglobin ABG Oxyhemoglobin ABG Sodium 152.5 H ABG Potassium 5.7 H ABG Chloride 120.0 H ABG Glucose 217 H Oxyhemoglobin Carboxyhemoglobin Sodium 151 H Potassium 5.9 H D Chloride 117.8 H Carbon Dioxide BUN 54 H Creatinine 2.2 H Glucose 208 H POC Glucose 180 H Hemoglobin A1c Lactic Acid Calcium 7.9 L Phosphorus Magnesium Ferritin Total Bilirubin AST ALT Lactate Dehydrogenase C-Reactive Protein Albumin Triglycerides Arterial Blood Glucose 217 H Arterial Blood Ionized Calcium Urine Creatinine Coronavirus (PCR) 01/29/21 01/29/21 01/29/21 12:29 17:28 18:05 WBC RBC Hgb Hct MCV MCH MCHC RDW Plt Count Lymph % (Auto) Lymph # (Auto) Seg Neutrophils % Seg Neuts % (Manual) Lymphocytes % (Manual) Seg Neutrophils # Man Lymphocytes # (Manual) Eosinophils # (Manual) D-Dimer ABG pH POC ABG pCO2 POC ABG pO2 ABG pO2 ABG HCO3 ABG O2 Saturation ABG Base Excess ABG Hemoglobin ABG Oxyhemoglobin ABG Sodium ABG Potassium ABG Chloride ABG Glucose Oxyhemoglobin Carboxyhemoglobin Sodium 151 H Potassium 5.5 H Chloride 118.2 H Carbon Dioxide BUN 52 H Creatinine 2.2 H Glucose 224 H POC Glucose 181 H 203 H Hemoglobin A1c Lactic Acid Calcium 8.0 L Phosphorus Magnesium Ferritin Total Bilirubin AST ALT Lactate Dehydrogenase C-Reactive Protein Albumin Triglycerides Arterial Blood Glucose Arterial Blood Ionized Calcium Urine Creatinine Coronavirus (PCR) 01/29/21 01/29/21 01/29/21 18:13 23:34 Unknown WBC RBC Hgb Hct MCV 101 H MCH MCHC RDW 15.7 H Plt Count Lymph % (Auto) Lymph # (Auto) Seg Neutrophils % Seg Neuts % (Manual) 95.0 H Lymphocytes % (Manual) 3.0 L Seg Neutrophils # Man 8.0 H Lymphocytes # (Manual) 0.3 L Eosinophils # (Manual) D-Dimer ABG pH 7.223 L POC ABG pCO2 64.8 H POC ABG pO2 63.6 L ABG pO2 ABG HCO3 ABG O2 Saturation ABG Base Excess ABG Hemoglobin ABG Oxyhemoglobin 89.4 L ABG Sodium 152.9 H ABG Potassium 5.3 H ABG Chloride 121.0 H ABG Glucose 227 H Oxyhemoglobin Carboxyhemoglobin Sodium Potassium Chloride Carbon Dioxide BUN Creatinine Glucose POC Glucose 198 H Hemoglobin A1c Lactic Acid Calcium Phosphorus Magnesium Ferritin Total Bilirubin AST ALT Lactate Dehydrogenase C-Reactive Protein Albumin Triglycerides Arterial Blood Glucose 227 H Arterial Blood Ionized Calcium Urine Creatinine Coronavirus (PCR) 01/30/21 01/30/21 01/30/21 04:00 04:00 04:00 WBC RBC Hgb Hct MCV MCH MCHC RDW Plt Count Lymph % (Auto) Lymph # (Auto) Seg Neutrophils % Seg Neuts % (Manual) Lymphocytes % (Manual) Seg Neutrophils # Man Lymphocytes # (Manual) Eosinophils # (Manual) D-Dimer > 00427 H ABG pH POC ABG pCO2 POC ABG pO2 ABG pO2 ABG HCO3 ABG O2 Saturation ABG Base Excess ABG Hemoglobin ABG Oxyhemoglobin ABG Sodium ABG Potassium ABG Chloride ABG Glucose Oxyhemoglobin Carboxyhemoglobin Sodium Potassium Chloride Carbon Dioxide BUN Creatinine Glucose 234 H POC Glucose Hemoglobin A1c Lactic Acid Calcium Phosphorus Magnesium Ferritin 763.9 H Total Bilirubin AST ALT Lactate Dehydrogenase 424 H C-Reactive Protein 23.90 H Albumin Triglycerides Arterial Blood Glucose Arterial Blood Ionized Calcium Urine Creatinine Coronavirus (PCR) 01/30/21 01/30/21 01/30/21 04:24 05:00 05:16 WBC RBC 3.57 L Hgb 11.3 L Hct 35.4 L MCV 99 H MCH MCHC RDW 15.6 H Plt Count Lymph % (Auto) Lymph # (Auto) Seg Neutrophils % Seg Neuts % (Manual) 97.0 H Lymphocytes % (Manual) 1.0 L Seg Neutrophils # Man 8.6 H Lymphocytes # (Manual) 0.1 L Eosinophils # (Manual) D-Dimer ABG pH 7.235 L POC ABG pCO2 69.7 H POC ABG pO2 61.0 L ABG pO2 ABG HCO3 ABG O2 Saturation ABG Base Excess ABG Hemoglobin ABG Oxyhemoglobin 89 L ABG Sodium 154.2 H ABG Potassium 5.4 H ABG Chloride 121.0 H ABG Glucose 247 H Oxyhemoglobin Carboxyhemoglobin Sodium Potassium Chloride Carbon Dioxide BUN Creatinine Glucose POC Glucose 238 H Hemoglobin A1c Lactic Acid Calcium Phosphorus Magnesium Ferritin Total Bilirubin AST ALT Lactate Dehydrogenase C-Reactive Protein Albumin Triglycerides Arterial Blood Glucose 247 H Arterial Blood Ionized Calcium Urine Creatinine Coronavirus (PCR) 01/30/21 01/30/21 01/30/21 06:00 11:28 12:00 WBC RBC Hgb Hct MCV MCH MCHC RDW Plt Count Lymph % (Auto) Lymph # (Auto) Seg Neutrophils % Seg Neuts % (Manual) Lymphocytes % (Manual) Seg Neutrophils # Man Lymphocytes # (Manual) Eosinophils # (Manual) D-Dimer ABG pH POC ABG pCO2 POC ABG pO2 ABG pO2 ABG HCO3 ABG O2 Saturation ABG Base Excess ABG Hemoglobin ABG Oxyhemoglobin ABG Sodium ABG Potassium ABG Chloride ABG Glucose Oxyhemoglobin Carboxyhemoglobin Sodium 152 H Potassium 5.3 H Chloride 120.5 H Carbon Dioxide BUN 50 H Creatinine 2.3 H Glucose 239 H POC Glucose 153 H Hemoglobin A1c Lactic Acid Calcium 8.2 L Phosphorus Magnesium 2.60 H Ferritin Total Bilirubin AST ALT Lactate Dehydrogenase C-Reactive Protein Albumin Triglycerides 293 H Arterial Blood Glucose Arterial Blood Ionized Calcium Urine Creatinine 53.0 H Coronavirus (PCR) 01/30/21 01/30/21 01/31/21 18:49 23:06 04:00 WBC RBC Hgb Hct MCV MCH MCHC RDW Plt Count Lymph % (Auto) Lymph # (Auto) Seg Neutrophils % Seg Neuts % (Manual) Lymphocytes % (Manual) Seg Neutrophils # Man Lymphocytes # (Manual) Eosinophils # (Manual) D-Dimer ABG pH POC ABG pCO2 POC ABG pO2 ABG pO2 ABG HCO3 ABG O2 Saturation ABG Base Excess ABG Hemoglobin ABG Oxyhemoglobin ABG Sodium ABG Potassium ABG Chloride ABG Glucose Oxyhemoglobin Carboxyhemoglobin Sodium 156 H Potassium 5.9 H Chloride 122.6 H Carbon Dioxide BUN 61 H Creatinine 3.2 H Glucose 205 H POC Glucose 220 H 192 H Hemoglobin A1c Lactic Acid Calcium 8.0 L Phosphorus Magnesium Ferritin Total Bilirubin AST ALT Lactate Dehydrogenase C-Reactive Protein Albumin Triglycerides Arterial Blood Glucose Arterial Blood Ionized Calcium Urine Creatinine Coronavirus (PCR) 01/31/21 01/31/21 01/31/21 04:40 05:17 11:33 WBC RBC Hgb Hct MCV MCH MCHC RDW Plt Count Lymph % (Auto) Lymph # (Auto) Seg Neutrophils % Seg Neuts % (Manual) Lymphocytes % (Manual) Seg Neutrophils # Man Lymphocytes # (Manual) Eosinophils # (Manual) D-Dimer ABG pH 7.161 L* POC ABG pCO2 POC ABG pO2 ABG pO2 142.2 H ABG HCO3 28.3 H ABG O2 Saturation ABG Base Excess -3.2 L ABG Hemoglobin ABG Oxyhemoglobin ABG Sodium ABG Potassium ABG Chloride ABG Glucose Oxyhemoglobin Carboxyhemoglobin Sodium Potassium Chloride Carbon Dioxide BUN Creatinine Glucose POC Glucose 200 H 167 H Hemoglobin A1c Lactic Acid Calcium Phosphorus Magnesium Ferritin Total Bilirubin AST ALT Lactate Dehydrogenase C-Reactive Protein Albumin Triglycerides Arterial Blood Glucose Arterial Blood Ionized Calcium Urine Creatinine Coronavirus (PCR) 01/31/21 01/31/21 01/31/21 14:00 17:10 23:24 WBC RBC Hgb Hct MCV MCH MCHC RDW Plt Count Lymph % (Auto) Lymph # (Auto) Seg Neutrophils % Seg Neuts % (Manual) Lymphocytes % (Manual) Seg Neutrophils # Man Lymphocytes # (Manual) Eosinophils # (Manual) D-Dimer ABG pH 7.205 L POC ABG pCO2 POC ABG pO2 ABG pO2 90.9 H ABG HCO3 26.5 H ABG O2 Saturation ABG Base Excess -2.7 L ABG Hemoglobin 12.3 L ABG Oxyhemoglobin ABG Sodium ABG Potassium ABG Chloride ABG Glucose Oxyhemoglobin 93.9 L Carboxyhemoglobin Sodium Potassium Chloride Carbon Dioxide BUN Creatinine Glucose POC Glucose 190 H 203 H Hemoglobin A1c Lactic Acid Calcium Phosphorus Magnesium Ferritin Total Bilirubin AST ALT Lactate Dehydrogenase C-Reactive Protein Albumin Triglycerides Arterial Blood Glucose Arterial Blood Ionized Calcium Urine Creatinine Coronavirus (PCR) 02/01/21 02/01/21 02/01/21 05:15 06:22 10:20 WBC RBC Hgb Hct MCV MCH MCHC RDW Plt Count Lymph % (Auto) Lymph # (Auto) Seg Neutrophils % Seg Neuts % (Manual) Lymphocytes % (Manual) Seg Neutrophils # Man Lymphocytes # (Manual) Eosinophils # (Manual) D-Dimer ABG pH 6.920 L* 7.116 L* POC ABG pCO2 POC ABG pO2 ABG pO2 102.9 H 113.1 H ABG HCO3 28.2 H ABG O2 Saturation 92.9 L ABG Base Excess -6.9 L -5.8 L ABG Hemoglobin 11.6 L 9.5 L ABG Oxyhemoglobin ABG Sodium ABG Potassium ABG Chloride ABG Glucose Oxyhemoglobin 90.5 L 94.6 L Carboxyhemoglobin Sodium Potassium Chloride Carbon Dioxide BUN Creatinine Glucose POC Glucose 221 H Hemoglobin A1c Lactic Acid Calcium Phosphorus Magnesium Ferritin Total Bilirubin AST ALT Lactate Dehydrogenase C-Reactive Protein Albumin Triglycerides Arterial Blood Glucose Arterial Blood Ionized Calcium Urine Creatinine Coronavirus (PCR) 02/01/21 02/01/21 02/01/21 11:12 12:35 16:00 WBC RBC Hgb Hct MCV MCH MCHC RDW Plt Count Lymph % (Auto) Lymph # (Auto) Seg Neutrophils % Seg Neuts % (Manual) Lymphocytes % (Manual) Seg Neutrophils # Man Lymphocytes # (Manual) Eosinophils # (Manual) D-Dimer ABG pH 7.155 L* POC ABG pCO2 POC ABG pO2 ABG pO2 94.6 H ABG HCO3 ABG O2 Saturation ABG Base Excess -6.5 L ABG Hemoglobin 13.1 L ABG Oxyhemoglobin ABG Sodium ABG Potassium ABG Chloride ABG Glucose Oxyhemoglobin 93.7 L Carboxyhemoglobin Sodium 155 H Potassium 5.1 H Chloride 120.5 H Carbon Dioxide BUN 90 H Creatinine 6.1 H D Glucose 238 H POC Glucose 207 H Hemoglobin A1c Lactic Acid Calcium 7.4 L Phosphorus Magnesium Ferritin Total Bilirubin AST ALT Lactate Dehydrogenase C-Reactive Protein Albumin Triglycerides Arterial Blood Glucose Arterial Blood Ionized Calcium Urine Creatinine Coronavirus (PCR) 02/01/21 02/01/21 02/02/21 17:10 23:47 04:04 WBC RBC 3.02 L Hgb 9.8 L Hct 30.7 L MCV 102 H MCH MCHC RDW 15.6 H Plt Count Lymph % (Auto) 4.2 L Lymph # (Auto) 0.3 L Seg Neutrophils % Seg Neuts % (Manual) Lymphocytes % (Manual) Seg Neutrophils # Man Lymphocytes # (Manual) Eosinophils # (Manual) D-Dimer ABG pH POC ABG pCO2 POC ABG pO2 ABG pO2 ABG HCO3 ABG O2 Saturation ABG Base Excess ABG Hemoglobin ABG Oxyhemoglobin ABG Sodium ABG Potassium ABG Chloride ABG Glucose Oxyhemoglobin Carboxyhemoglobin Sodium Potassium Chloride Carbon Dioxide BUN Creatinine Glucose POC Glucose 238 H 235 H Hemoglobin A1c Lactic Acid Calcium Phosphorus Magnesium Ferritin Total Bilirubin AST ALT Lactate Dehydrogenase C-Reactive Protein Albumin Triglycerides Arterial Blood Glucose Arterial Blood Ionized Calcium Urine Creatinine Coronavirus (PCR) 02/02/21 02/02/21 02/02/21 05:18 05:35 11:28 WBC RBC Hgb Hct MCV MCH MCHC RDW Plt Count Lymph % (Auto) Lymph # (Auto) Seg Neutrophils % Seg Neuts % (Manual) Lymphocytes % (Manual) Seg Neutrophils # Man Lymphocytes # (Manual) Eosinophils # (Manual) D-Dimer ABG pH 7.195 L* POC ABG pCO2 POC ABG pO2 ABG pO2 72.5 L ABG HCO3 ABG O2 Saturation 91.2 L ABG Base Excess -5.3 L ABG Hemoglobin 6.0 L ABG Oxyhemoglobin ABG Sodium ABG Potassium ABG Chloride ABG Glucose Oxyhemoglobin 89.1 L Carboxyhemoglobin Sodium Potassium Chloride 110.4 H Carbon Dioxide BUN 92 H Creatinine Glucose POC Glucose 239 H Hemoglobin A1c Lactic Acid Calcium Phosphorus Magnesium Ferritin Total Bilirubin AST ALT Lactate Dehydrogenase C-Reactive Protein Albumin Triglycerides Arterial Blood Glucose Arterial Blood Ionized Calcium Urine Creatinine Coronavirus (PCR) 02/02/21 02/02/21 02/02/21 11:53 16:00 18:04 WBC RBC Hgb Hct MCV MCH MCHC RDW Plt Count Lymph % (Auto) Lymph # (Auto) Seg Neutrophils % Seg Neuts % (Manual) Lymphocytes % (Manual) Seg Neutrophils # Man Lymphocytes # (Manual) Eosinophils # (Manual) D-Dimer ABG pH POC ABG pCO2 POC ABG pO2 ABG pO2 ABG HCO3 ABG O2 Saturation ABG Base Excess ABG Hemoglobin ABG Oxyhemoglobin ABG Sodium ABG Potassium ABG Chloride ABG Glucose Oxyhemoglobin Carboxyhemoglobin Sodium Potassium Chloride Carbon Dioxide BUN Creatinine Glucose POC Glucose 248 H 199 H Hemoglobin A1c 6.3 H Lactic Acid Calcium Phosphorus Magnesium Ferritin Total Bilirubin AST ALT Lactate Dehydrogenase C-Reactive Protein Albumin Triglycerides Arterial Blood Glucose Arterial Blood Ionized Calcium Urine Creatinine Coronavirus (PCR) 02/02/21 02/03/21 02/03/21 23:31 03:12 04:10 WBC RBC 3.06 L Hgb 9.7 L Hct 30.4 L MCV 99 H MCH MCHC RDW 15.3 H Plt Count Lymph % (Auto) 6.1 L Lymph # (Auto) 0.5 L Seg Neutrophils % 86.1 H Seg Neuts % (Manual) Lymphocytes % (Manual) Seg Neutrophils # Man Lymphocytes # (Manual) Eosinophils # (Manual) D-Dimer ABG pH 7.199 L POC ABG pCO2 48.3 H POC ABG pO2 68.3 L ABG pO2 ABG HCO3 ABG O2 Saturation ABG Base Excess ABG Hemoglobin 10.2 L ABG Oxyhemoglobin 89.2 L ABG Sodium 155.0 H ABG Potassium 4.6 H ABG Chloride 121.0 H ABG Glucose 166 H Oxyhemoglobin Carboxyhemoglobin 0.3 L Sodium Potassium Chloride Carbon Dioxide BUN Creatinine Glucose POC Glucose 200 H Hemoglobin A1c Lactic Acid Calcium Phosphorus Magnesium Ferritin Total Bilirubin AST ALT Lactate Dehydrogenase C-Reactive Protein Albumin Triglycerides Arterial Blood Glucose 166 H Arterial Blood Ionized Calcium 4.1 L Urine Creatinine Coronavirus (PCR) 02/03/21 02/03/21 02/03/21 04:10 05:34 11:51 WBC RBC Hgb Hct MCV MCH MCHC RDW Plt Count Lymph % (Auto) Lymph # (Auto) Seg Neutrophils % Seg Neuts % (Manual) Lymphocytes % (Manual) Seg Neutrophils # Man Lymphocytes # (Manual) Eosinophils # (Manual) D-Dimer ABG pH POC ABG pCO2 POC ABG pO2 ABG pO2 ABG HCO3 ABG O2 Saturation ABG Base Excess ABG Hemoglobin ABG Oxyhemoglobin ABG Sodium ABG Potassium ABG Chloride ABG Glucose Oxyhemoglobin Carboxyhemoglobin Sodium 154 H D Potassium Chloride 116.7 H Carbon Dioxide 20 L BUN 130 H Creatinine 9.2 H D Glucose 160 H POC Glucose 130 H 154 H Hemoglobin A1c Lactic Acid Calcium 6.7 L Phosphorus 8.60 H Magnesium Ferritin Total Bilirubin AST ALT Lactate Dehydrogenase C-Reactive Protein Albumin Triglycerides Arterial Blood Glucose Arterial Blood Ionized Calcium Urine Creatinine Coronavirus (PCR) 02/03/21 02/03/21 02/04/21 16:49 23:22 03:48 WBC RBC Hgb Hct MCV MCH MCHC RDW Plt Count Lymph % (Auto) Lymph # (Auto) Seg Neutrophils % Seg Neuts % (Manual) Lymphocytes % (Manual) Seg Neutrophils # Man Lymphocytes # (Manual) Eosinophils # (Manual) D-Dimer ABG pH 7.201 L POC ABG pCO2 54.5 H POC ABG pO2 74.0 L ABG pO2 ABG HCO3 ABG O2 Saturation ABG Base Excess ABG Hemoglobin 9.7 L ABG Oxyhemoglobin 91.1 L ABG Sodium 146.2 H ABG Potassium ABG Chloride 114.0 H ABG Glucose 155 H Oxyhemoglobin Carboxyhemoglobin Sodium Potassium Chloride Carbon Dioxide BUN Creatinine Glucose POC Glucose 164 H 152 H Hemoglobin A1c Lactic Acid Calcium Phosphorus Magnesium Ferritin Total Bilirubin AST ALT Lactate Dehydrogenase C-Reactive Protein Albumin Triglycerides Arterial Blood Glucose 155 H Arterial Blood Ionized Calcium 3.9 L Urine Creatinine Coronavirus (PCR) 02/04/21 02/04/21 02/04/21 04:45 04:45 04:45 WBC RBC 2.75 L Hgb 9.1 L Hct 26.9 L MCV 98 H MCH 33 H MCHC RDW Plt Count Lymph % (Auto) 6.8 L Lymph # (Auto) 0.5 L Seg Neutrophils % 87.2 H Seg Neuts % (Manual) Lymphocytes % (Manual) Seg Neutrophils # Man Lymphocytes # (Manual) Eosinophils # (Manual) D-Dimer ABG pH POC ABG pCO2 POC ABG pO2 ABG pO2 ABG HCO3 ABG O2 Saturation ABG Base Excess ABG Hemoglobin ABG Oxyhemoglobin ABG Sodium ABG Potassium ABG Chloride ABG Glucose Oxyhemoglobin Carboxyhemoglobin Sodium 149 H Potassium Chloride 111.5 H Carbon Dioxide BUN 99 H Creatinine 8.5 H Glucose 139 H POC Glucose Hemoglobin A1c Lactic Acid Calcium 6.8 L Phosphorus 8.40 H Magnesium Ferritin Total Bilirubin AST ALT Lactate Dehydrogenase C-Reactive Protein Albumin Triglycerides Arterial Blood Glucose Arterial Blood Ionized Calcium Urine Creatinine Coronavirus (PCR) 02/04/21 02/04/21 02/04/21 06:05 11:44 18:00 WBC RBC Hgb Hct MCV MCH MCHC RDW Plt Count Lymph % (Auto) Lymph # (Auto) Seg Neutrophils % Seg Neuts % (Manual) Lymphocytes % (Manual) Seg Neutrophils # Man Lymphocytes # (Manual) Eosinophils # (Manual) D-Dimer ABG pH POC ABG pCO2 POC ABG pO2 ABG pO2 ABG HCO3 ABG O2 Saturation ABG Base Excess ABG Hemoglobin ABG Oxyhemoglobin ABG Sodium ABG Potassium ABG Chloride ABG Glucose Oxyhemoglobin Carboxyhemoglobin Sodium Potassium Chloride Carbon Dioxide BUN Creatinine Glucose POC Glucose 138 H 129 H 163 H Hemoglobin A1c Lactic Acid Calcium Phosphorus Magnesium Ferritin Total Bilirubin AST ALT Lactate Dehydrogenase C-Reactive Protein Albumin Triglycerides Arterial Blood Glucose Arterial Blood Ionized Calcium Urine Creatinine Coronavirus (PCR) 02/04/21 02/05/21 02/05/21 23:48 01:50 01:50 WBC RBC 2.43 L Hgb 8.3 L Hct 23.6 L MCV 97 H MCH 34 H MCHC 35 H RDW Plt Count 137 L Lymph % (Auto) 8.4 L Lymph # (Auto) 0.6 L Seg Neutrophils % 86.1 H Seg Neuts % (Manual) Lymphocytes % (Manual) Seg Neutrophils # Man Lymphocytes # (Manual) Eosinophils # (Manual) D-Dimer ABG pH POC ABG pCO2 POC ABG pO2 ABG pO2 ABG HCO3 ABG O2 Saturation ABG Base Excess ABG Hemoglobin ABG Oxyhemoglobin ABG Sodium ABG Potassium ABG Chloride ABG Glucose Oxyhemoglobin Carboxyhemoglobin Sodium Potassium Chloride Carbon Dioxide BUN Creatinine Glucose POC Glucose 157 H Hemoglobin A1c Lactic Acid Calcium Phosphorus 5.60 H D Magnesium Ferritin Total Bilirubin AST ALT Lactate Dehydrogenase C-Reactive Protein Albumin Triglycerides Arterial Blood Glucose Arterial Blood Ionized Calcium Urine Creatinine Coronavirus (PCR) 02/05/21 02/05/21 02/05/21 03:44 05:27 09:15 WBC RBC Hgb Hct MCV MCH MCHC RDW Plt Count Lymph % (Auto) Lymph # (Auto) Seg Neutrophils % Seg Neuts % (Manual) Lymphocytes % (Manual) Seg Neutrophils # Man Lymphocytes # (Manual) Eosinophils # (Manual) D-Dimer ABG pH 7.202 L POC ABG pCO2 63.7 H POC ABG pO2 69.0 L ABG pO2 ABG HCO3 ABG O2 Saturation ABG Base Excess ABG Hemoglobin 9.4 L ABG Oxyhemoglobin ABG Sodium ABG Potassium ABG Chloride 108.0 H ABG Glucose 186 H Oxyhemoglobin Carboxyhemoglobin Sodium Potassium Chloride Carbon Dioxide BUN 78 H Creatinine 8.0 H Glucose 163 H POC Glucose 157 H Hemoglobin A1c Lactic Acid Calcium 6.3 L Phosphorus Magnesium Ferritin Total Bilirubin AST ALT Lactate Dehydrogenase C-Reactive Protein Albumin Triglycerides Arterial Blood Glucose 186 H Arterial Blood Ionized Calcium 3.9 L Urine Creatinine Coronavirus (PCR) 02/05/21 02/05/21 02/05/21 11:47 17:39 23:40 WBC RBC Hgb Hct MCV MCH MCHC RDW Plt Count Lymph % (Auto) Lymph # (Auto) Seg Neutrophils % Seg Neuts % (Manual) Lymphocytes % (Manual) Seg Neutrophils # Man Lymphocytes # (Manual) Eosinophils # (Manual) D-Dimer ABG pH 7.273 L POC ABG pCO2 62.1 H POC ABG pO2 72.0 L ABG pO2 ABG HCO3 ABG O2 Saturation ABG Base Excess ABG Hemoglobin 9.1 L ABG Oxyhemoglobin 91.3 L ABG Sodium ABG Potassium 3.1 L ABG Chloride ABG Glucose 125 H Oxyhemoglobin Carboxyhemoglobin Sodium Potassium Chloride Carbon Dioxide BUN Creatinine Glucose POC Glucose 126 H 126 H Hemoglobin A1c Lactic Acid Calcium Phosphorus Magnesium Ferritin Total Bilirubin AST ALT Lactate Dehydrogenase C-Reactive Protein Albumin Triglycerides Arterial Blood Glucose 125 H Arterial Blood Ionized Calcium 4.0 L Urine Creatinine Coronavirus (PCR) 02/06/21 02/06/21 02/06/21 04:30 04:57 09:45 WBC RBC Hgb Hct MCV MCH MCHC RDW Plt Count Lymph % (Auto) Lymph # (Auto) Seg Neutrophils % Seg Neuts % (Manual) Lymphocytes % (Manual) Seg Neutrophils # Man Lymphocytes # (Manual) Eosinophils # (Manual) D-Dimer ABG pH 7.159 L 7.138 L* POC ABG pCO2 76.3 H POC ABG pO2 66.9 L ABG pO2 ABG HCO3 ABG O2 Saturation 93.4 L ABG Base Excess -6.0 L ABG Hemoglobin 11.2 L 11.7 L ABG Oxyhemoglobin 88.2 L ABG Sodium ABG Potassium ABG Chloride ABG Glucose 134 H Oxyhemoglobin 91.2 L Carboxyhemoglobin Sodium Potassium Chloride Carbon Dioxide BUN Creatinine Glucose POC Glucose 124 H Hemoglobin A1c Lactic Acid Calcium Phosphorus Magnesium Ferritin Total Bilirubin AST ALT Lactate Dehydrogenase C-Reactive Protein Albumin Triglycerides Arterial Blood Glucose 134 H Arterial Blood Ionized Calcium 3.9 L Urine Creatinine Coronavirus (PCR) 02/06/21 02/06/21 Unknown Unknown WBC 13.5 H RBC 2.98 L Hgb 9.3 L Hct 28.6 L MCV 96 H MCH MCHC RDW Plt Count Lymph % (Auto) Lymph # (Auto) Seg Neutrophils % Seg Neuts % (Manual) 87.0 H Lymphocytes % (Manual) 7.0 L Seg Neutrophils # Man 11.7 H Lymphocytes # (Manual) 0.9 L Eosinophils # (Manual) 0.5 H D-Dimer ABG pH POC ABG pCO2 POC ABG pO2 ABG pO2 ABG HCO3 ABG O2 Saturation ABG Base Excess ABG Hemoglobin ABG Oxyhemoglobin ABG Sodium ABG Potassium ABG Chloride ABG Glucose Oxyhemoglobin Carboxyhemoglobin Sodium Potassium 3.5 L Chloride Carbon Dioxide BUN 58 H Creatinine 6.6 H Glucose 107 H POC Glucose Hemoglobin A1c Lactic Acid Calcium 6.7 L Phosphorus 8.00 H D Magnesium Ferritin Total Bilirubin AST ALT Lactate Dehydrogenase C-Reactive Protein Albumin Triglycerides Arterial Blood Glucose Arterial Blood Ionized Calcium Urine Creatinine Coronavirus (PCR)
[2021-02-06] MEDS: NORepinephrine/NS 4 MG-250 ML 4 MG/250 ML BAG IV SCH ×2 (10:58→19:17)
[2021-02-06] MEDS ORDERED: SODIUM BICARB 8.4% 50 MEQ/50 ML SYRINGE IV SCH ×2 (11:00)
[2021-02-06] MEDS: SODIUM BICARBONATE 150 MEQ in DEXTROSE 5% IN WATER 1,000 ML IV SCH ×2 (11:31→19:18)
--- NOTE | 2021-02-06 11:49 | Progress Note ---
Assessment and Plan Cultures: Blood culture no growth today SARS CoV2 PCR positive 01/22/2021 respiratory culture: Usual respiratory dillon Blood Culture 01/30/2021 no growth today Urine culture 01/30/2021 no growth today Sputum culture 01/30/2021 usual respiratory dillon Blood culture 02/04/2021 GPC 2 of 4 Urine culture 02/04/2021 no growth Assessment: 60 year old male with history of morbid obesity admitted on 01/22/2021 secondary to 3-day history of worsening shortness of breath associated with fever, chills, loss of smell and taste: #Severe sepsis with septic shock: remains with intermittent fever on pressors. Likely due to GPC bacteremia. Initial sepsis due to bilateral pneumonia. Urinalysis negative. Procalcitonin elevated in the setting of DEISI. Leg US no DVT. #GPC bacteremia: new blood culture on 02/04/2021 with GPC 2 of 4 bottles #Critical COVID-19 pneumonia: Patient remains intubated. Chest x-ray with bilateral airspace disease. Inflammatory markers worsening, D-dimer>10K. CRP 40-->23. Completed remdesivir. #Acute respiratory failure: Remains on the ventilator #Transaminitis: Likely secondary to COVID-19. #DEISI: Worsening, creatinine 3.2--> 6.1. To Start hemodialysis Recommendations: -Recommend to remove central lines - Right IJ and right PICC due to GPC bacteremia and persistent septic shock -Continue cefepime renally adjusted D8 of 10, extended -Stop fluconazole -Started on vancomycin D2 for GPC bacteremia -F/u blood cx ID and RUSTAM -Repeat blood culture tomorrow Very guarded prognosis Will follow Jami Laird MD Infectious Diseases Environmental Health Physician [facility] M [phone] O [phone] Subjective Date of service: 02/06/21 Principal diagnosis: DEISI Interval history: Patient remains critically ill, intubated, sedated on fentanyl and propofol, noted persistent low-grade fever, on Levophed drip Objective - Exam Narrative Exam: General appearance: Sedated, intubated Eyes: anicteric sclerae, moist conjunctivae; no lid-lag; PERRLA HENT: Normocephalic, Atraumatic; normal external ears, nares open, oropharynx limited Neck: supple, tracheal midline, no JVD Lungs: Bilateral coarse breath sounds CV: Tachycardic Abdomen: Soft, obese, nontender Extremities: Bilateral leg edema Skin: No rash. Psych: Sedated Neuro: Sedated Right IJ catheter, right PICC line - Constitutional Vitals: Vital Signs Temp Pulse Resp BP Pulse Ox 100.1 F H 113 H 26 H 98/56 96 02/06/21 08:00 02/06/21 09:00 02/06/21 09:00 02/06/21 09:00 02/06/21 09:00 Temperature -Last 24 Hours Temperature 100.1 F Temperature 99.9 F Temperature 100.1 F Temperature 100.8 F Temperature 98.1 F Temperature 98.7 F Temperature 98.7 F Temperature 98.7 F - Labs CBC & Chem 7: 02/06/21 Unknown 02/06/21 Unknown Labs: Abnormal lab results 02/05/21 02/05/21 02/05/21 Range/Units 11:47 17:39 23:40 WBC (4.5-11.0) K/mm3 RBC (3.65-5.03) M/mm3 Hgb (11.8-15.2) gm/dl Hct (35.5-45.6) % MCV (84-94) fl Seg Neuts % (Manual) (40.0-70.0) % Lymphocytes % (Manual) (13.4-35.0) % Seg Neutrophils # Man (1.8-7.7) K/mm3 Lymphocytes # (Manual) (1.2-5.4) K/mm3 Eosinophils # (Manual) (0.0-0.4) K/mm3 ABG pH 7.273 L (7.320-7.450) POC ABG pCO2 62.1 H (32.0-48.0) mmHg POC ABG pO2 72.0 L (83-108) mmHg ABG O2 Saturation (95.0-99.0) % ABG Base Excess (-2.0-3.0) mmol/L ABG Hemoglobin 9.1 L (12.0-17.5) ABG Oxyhemoglobin 91.3 L (94-98) ABG Potassium 3.1 L (3.40-4.50) mmol/L ABG Glucose 125 H (65-95) mg/dL Oxyhemoglobin (95.0-99.0) % Potassium (3.6-5.0) mmol/L BUN (9-20) mg/dL Creatinine (0.8-1.3) mg/dL Glucose (75-100) mg/dL POC Glucose 126 H 126 H (70-105) mg/dL Calcium (8.4-10.2) mg/dL Phosphorus (2.5-4.5) mg/dL Arterial Blood Glucose 125 H (65-95) mg/dL Arterial Blood Ionized Calcium 4.0 L (4.6-5.3) mg/dL 02/06/21 02/06/21 02/06/21 Range/Units 04:30 04:57 09:45 WBC (4.5-11.0) K/mm3 RBC (3.65-5.03) M/mm3 Hgb (11.8-15.2) gm/dl Hct (35.5-45.6) % MCV (84-94) fl Seg Neuts % (Manual) (40.0-70.0) % Lymphocytes % (Manual) (13.4-35.0) % Seg Neutrophils # Man (1.8-7.7) K/mm3 Lymphocytes # (Manual) (1.2-5.4) K/mm3 Eosinophils # (Manual) (0.0-0.4) K/mm3 ABG pH 7.159 L 7.138 L* (7.320-7.450) POC ABG pCO2 76.3 H (32.0-48.0) mmHg POC ABG pO2 66.9 L (83-108) mmHg ABG O2 Saturation 93.4 L (95.0-99.0) % ABG Base Excess -6.0 L (-2.0-3.0) mmol/L ABG Hemoglobin 11.2 L 11.7 L (12.0-17.5) ABG Oxyhemoglobin 88.2 L (94-98) ABG Potassium (3.40-4.50) mmol/L ABG Glucose 134 H (65-95) mg/dL Oxyhemoglobin 91.2 L (95.0-99.0) % Potassium (3.6-5.0) mmol/L BUN (9-20) mg/dL Creatinine (0.8-1.3) mg/dL Glucose (75-100) mg/dL POC Glucose 124 H (70-105) mg/dL Calcium (8.4-10.2) mg/dL Phosphorus (2.5-4.5) mg/dL Arterial Blood Glucose 134 H (65-95) mg/dL Arterial Blood Ionized Calcium 3.9 L (4.6-5.3) mg/dL 02/06/21 02/06/21 02/06/21 Range/Units 11:11 Unknown Unknown WBC 13.5 H (4.5-11.0) K/mm3 RBC 2.98 L (3.65-5.03) M/mm3 Hgb 9.3 L (11.8-15.2) gm/dl Hct 28.6 L (35.5-45.6) % MCV 96 H (84-94) fl Seg Neuts % (Manual) 87.0 H (40.0-70.0) % Lymphocytes % (Manual) 7.0 L (13.4-35.0) % Seg Neutrophils # Man 11.7 H (1.8-7.7) K/mm3 Lymphocytes # (Manual) 0.9 L (1.2-5.4) K/mm3 Eosinophils # (Manual) 0.5 H (0.0-0.4) K/mm3 ABG pH (7.320-7.450) POC ABG pCO2 (32.0-48.0) mmHg POC ABG pO2 (83-108) mmHg ABG O2 Saturation (95.0-99.0) % ABG Base Excess (-2.0-3.0) mmol/L ABG Hemoglobin (12.0-17.5) ABG Oxyhemoglobin (94-98) ABG Potassium (3.40-4.50) mmol/L ABG Glucose (65-95) mg/dL Oxyhemoglobin (95.0-99.0) % Potassium 3.5 L (3.6-5.0) mmol/L BUN 58 H (9-20) mg/dL Creatinine 6.6 H (0.8-1.3) mg/dL Glucose 107 H (75-100) mg/dL POC Glucose 120 H (70-105) mg/dL Calcium 6.7 L (8.4-10.2) mg/dL Phosphorus 8.00 H D (2.5-4.5) mg/dL Arterial Blood Glucose (65-95) mg/dL Arterial Blood Ionized Calcium (4.6-5.3) mg/dL
--- NOTE | 2021-02-06 12:30 | Progress Note ---
<BRENDA MORALES - Last Filed: 02/06/21 12:25> Assessment and Plan Assessment and plan: -CCM, nephrology, infectious disease consulted, appreciate recommendations -Antibiotic therapy -COVID-19 PCR positive, Pneumonia on CXR -Steroid therapy, s/p remdesivir -Mechanical ventilation, wean as tolerated -VAP bundle -HD per nephrology -Trend BMP -S/p MIVF -Bilateral lower extremity Doppler ultrasound negative for DVT/SVT -Therapeutic Lovenox -SSI -Long-acting insulin -Accu-Cheks every 6 while on tube feedings -Hold home antihypertensive regimen for now as he is still needing vasopressor support -Blood pressure monitoring per protocol -IV Vancomycin -NaHCO3 gtt DVT/GI prophylaxis: SCDs to bilateral lower extremities while in bed, heparin subcu, PPI Dispo: ICU The high probability of a clinically significant, sudden or life threatening deterioration of the [multi] system(s) required my full and direct attention, intervention and personal management. The aggregate critical care time was [32] minutes. This time is in addition to time spent performing reported procedures but includes the following: [x] Data Review and interpretation [x] Patient assessment and monitoring of vital signs [x] Documentation [x] Medication orders and management History Interval history: This is a 60-year-old male with diabetes mellitus, hypertension, hyperlipidemia, chronic renal insufficiency presents to the emergency department on 01/23 with shortness of breath, fevers chills, loss of smell and taste and body aches for the past 3 days via EMS. Per EMS patient's oxygen saturation on room air was 50% and after being placed on nonrebreather it increased 75%. Upon arrival to the emergency department patient was being bagged by EMS. In the emergency room patient was intubated due to severe hypoxia, increased work of breathing and lethargy. Patient was sedated on propofol and fentanyl. Patient presented with fever, tachycardia, tachypnea and acute hypoxic respiratory failure with PNA on CXR meeting Sepsis criteria. Lab work in the emergency department revealed hyponatremia, hypokalemia, hypochloremia, elevated CR/BUN and CXR showed bilateral pneumonia. Patient was admitted to the hospital service as a COVID-19 PUI with consults to infectious disease, nephrology and critical care medicine. Sepsis COVID-19 pneumonia Bilateral pneumonia Gram Positive cocci bactermia Acute hypoxic respiratory failure Acute kidney injury, HD initiated 02/03 Acidosis Hyperphosphatemia Diabetes mellitus Hypertension Hyperlipidemia Chronic renal insufficiency Elevated D-dimer 01/24/2021: Patient is intubated and sedated, patient is positive for COVID-19 infection. ID was consulted and put on dexamethasone and remdesivir. Patient has DEISI and nephrology is following. Creatinine stable, patient is urinating. Discussed with nephrology and he is okay with remdesivir. Pulmonary critical care is following for his vent setting. PEEP of 8 and FiO2 of 85%. Patient was alert and off sedatives. 01/25/2021; patient is intubated and on mechanical ventilation. Continue with treatment of Covid. Nephrology and ID is following. Pulmonary is following for vent management 01/26: Remains on mechanical ventilation and [facility] increased his PEEP. [facility] has ordered Precedex for sedation. Possibly need to prone this p.m. No acute events reported overnight. This morning his D-dimer is greater than 10,000 and we have started him on Lovenox 120 mg daily. Nutrition has been consulted for initiation of tube feedings. Patient remains sedated on propofol 40 and fentanyl for the time my examination this morning. 01/27: Continue Lovenox, remdesivir and empiric antibiotics. Patient had a T-max of 101 overnight. The time of examination patient is on CMV 500/18/14/0.61. Kidney function slightly worsened. Sedated on fentanyl ground-level fall and Precedex. Nephrology has increased IV fluids to 100 ml/hr. Continue to trend BMP and CBC. Sedation vacation attempt by RN this AM. 01/28: Patient completed antibiotics today [facility] will paralyze patient and increase sedation. PICC line ordered for possible vasopressor therapy need. Patient's D-dimer remains greater than 10,000 and he still has hyperchloremia. Patient's kidney function has improved today. May need to prone the patient if no improvement in oxygenation is noted in the next 24 hours. The time of my examination patient is sedated with propofol, fentanyl and Precedex and is on assist control 500/18/16/0.80 hypoxic on ABG on 60% FiO2. 01/29: Patient was started on Nimbex yesterday and his ABG this morning showed respiratory acidosis with hypercapnia and his respiratory rate was increased. We will obtain a repeat ABG this afternoon. This morning patient is hypernatremic, hyperkalemic and hyperchloremic. His potassium has been corrected with the management and will obtain repeat BMP tomorrow. His kidney functions have remained stable and we will await nephrology's input. No acute events reported overnight. This morning the time my examination patient sedated with propofol, Precedex and fentanyl and paralyzed with Nimbex. He is on assist control 500/24/16 0.80. 01/30: This morning patient is hypokalemic again and was given Kayexalate. Patient has hypernatremia and hyper chloremia and his renal function is slightly worse after receiving Lasix yesterday. His D-dimer remains greater than 10,000 and he is still on a paralytic. Patient is sedated on Precedex, fentanyl, propofol. Mechanical ventilation settings seven-point //28. [facility] has decided to continue paralytics for 48 more hours and will attempt proning the patient. Increased free water flushes 300 cc every 4 hours. Patient states has restarted his antibiotics cefepime and vancomycin and recultured. 01/31/21 Hyperkalemia, Treated 02/01/21 Hyperkalemia, Treated 02/02: Patient's kidney function continues to worsen and a stat BMP this morning shows BUN/creatinine 20/6.1 and he remains hypocalcemic and hypernatremic, hypokalemic and hypochloremic. Patient received 2 g of calcium gluconate and Kayexalate and his repeat potassium was 4.3 this afternoon. He remains antibiotic therapy and steroids. Nephrology has placed the patient on bicarb drip given metabolic acidosis and has decided to hold off hemodialysis till tomorrow.The time my examination patient is sedated on fentanyl, Precedex and on assist control 500/20/12/0.70. s/p paralytic. 02/03: Today patient's ABG shows respiratory acidosis however it is improving, hypernatremia, hyperchloremia, metabolic acidosis on BMP, worsening kidney function BUN/creatinine 130/9.2 with hyperphosphatemia. Patient received a Vas- Cath to his right IJ for initiation of dialysis. At the time of my examination patient remains sedated on fentanyl, propofol and Precedex with vasopressor support with Levophed at 2. 02/04: At the time of examination patient was on assist control tidal volume 500, rate 40, PEEP of 12, FiO2 85%. Patient had a T-max of 100.9 and infectious dis ease has stopped his vancomycin given negative MRSA. This afternoon patient respiked his temperature and was pancultured again. Patient was started on hemodialysis yesterday and will receive HD again today. Patient is sedated on Precedex, propofol, fentanyl and remains on Levophed. He is on assist control tidal volume 500, rate of 30, PEEP of 12, FiO2 of 85%. Patient still has some respiratory acidosis however his hypernatremia and hyperchloremia have improved and his metabolic acidosis has resolved. Patient will receive hemodialysis today 02/05: Patient continues to have low-grade fever temp this morning time examination he was on assist control tidal volume 500, and sedated on propofol /fentanyl/Precedex and is on Levophed. Hemodialysis per nephrology. Antibiotics per ID. Patient's blood culture from 02/04 grew gram-positive cocci in clusters in 1/2 bottles and he was started on vancomycin. 02/06: Patients ABG showed respiratory acidosis and the tracings were changed however a repeat ABG showed showed acidosis.[facility] will start a bicarb drip after giving 2 amps of bicarb push. Yesterday patient blood cultures grew gram- positive cocci and he was started on vancomycin. At the time my examination patient was on assist control tidal volume 550, rate 34, PEEP 16, FiO2 90% and sedated on fentanyl, Precedex, propofol elevated pressure support with Levophed. Bilateral lower extremity Doppler ultrasounds done yesterday showed no evidence of DVT/SVT. Hospitalist Physical - Constitutional Vitals: Temp Pulse Resp BP Pulse Ox 100.9 F H 113 H 26 H 109/58 96 02/06/21 12:00 02/06/21 11:39 02/06/21 09:00 02/06/21 11:39 02/06/21 11:39 General appearance: Present: no acute distress, well-nourished, other (Sedated on mechanical ventilation) - EENT Eyes: Present: PERRL ENT: ulcerations - Neck Neck: Present: supple - Respiratory Respiratory effort: normal Respiratory: bilateral: diminished - Cardiovascular Rhythm: regular Heart Sounds: Present: S1 & S2. Absent: systolic murmur, diastolic murmur - Extremities Extremities: no ischemia, pulses intact, pulses symmetrical, normal temperature, normal color Extremity abnormal: edema Peripheral Pulses: within normal limits - Abdominal General gastrointestinal: soft, non-tender, non-distended, normal bowel sounds - Integumentary Integumentary: Present: warm, dry - Psychiatric Psychiatric: other (sedated) - Neurologic Neurologic: other (sedated) - Allied Health Allied health notes reviewed: nursing, PT, RT, social work HEART Score - HEART Score Risk factors: 1-2 risk factors Troponin: < normal limit - Critical Actions Critical Actions: 0-3 pts:0.9-1.7%risk of adverse cardiac event.Candidate for discharge Results - Labs CBC & Chem 7: 02/06/21 Unknown 02/06/21 Unknown Labs: Laboratory Last Values WBC 13.5 K/mm3 (4.5-11.0) H 02/06/21 Unknown RBC 2.98 M/mm3 (3.65-5.03) L 02/06/21 Unknown Hgb 9.3 gm/dl (11.8-15.2) L 02/06/21 Unknown Hct 28.6 % (35.5-45.6) L 02/06/21 Unknown MCV 96 fl (84-94) H 02/06/21 Unknown MCH 31 pg (28-32) 02/06/21 Unknown MCHC 32 % (32-34) 02/06/21 Unknown RDW 14.2 % (13.2-15.2) 02/06/21 Unknown Plt Count 227 K/mm3 (140-440) 02/06/21 Unknown Lymph % (Auto) 8.4 % (13.4-35.0) L 02/05/21 01:50 [place] % (Auto) 3.5 % (0.0-7.3) 02/05/21 01:50 Eos % (Auto) 1.5 % (0.0-4.3) 02/05/21 01:50 Baso % (Auto) 0.5 % (0.0-1.8) 02/05/21 01:50 Lymph # (Auto) 0.6 K/mm3 (1.2-5.4) L 02/05/21 01:50 [place] # (Auto) 0.2 K/mm3 (0.0-0.8) 02/05/21 01:50 Eos # (Auto) 0.1 K/mm3 (0.0-0.4) 02/05/21 01:50 Baso # (Auto) 0.0 K/mm3 (0.0-0.1) 02/05/21 01:50 Add Manual Diff Complete 02/06/21 Unknown Total Counted 100 02/06/21 Unknown Seg Neutrophils % 86.1 % (40.0-70.0) H 02/05/21 01:50 Seg Neuts % (Manual) 87.0 % (40.0-70.0) H 02/06/21 Unknown Band Neutrophils % 1.0 % 02/06/21 Unknown Lymphocytes % (Manual) 7.0 % (13.4-35.0) L 02/06/21 Unknown Reactive Lymphs % (Man) 1.0 % 01/27/21 05:29 Monocytes % (Manual) 2.0 % (0.0-7.3) 01/30/21 05:00 Eosinophils % (Manual) 4.0 % (0.0-4.3) 02/06/21 Unknown Basophils % (Manual) 1.0 % (0.0-1.8) 02/06/21 Unknown Nucleated RBC % Not Reportable 02/06/21 Unknown Seg Neutrophils # 6.0 K/mm3 (1.8-7.7) 02/05/21 01:50 Seg Neutrophils # Man 11.7 K/mm3 (1.8-7.7) H 02/06/21 Unknown Band Neutrophils # 0.1 K/mm3 02/06/21 Unknown Lymphocytes # (Manual) 0.9 K/mm3 (1.2-5.4) L 02/06/21 Unknown Abs React Lymphs (Man) 0.0 K/mm3 02/06/21 Unknown Monocytes # (Manual) 0.0 K/mm3 (0.0-0.8) 02/06/21 Unknown Eosinophils # (Manual) 0.5 K/mm3 (0.0-0.4) H 02/06/21 Unknown Basophils # (Manual) 0.1 K/mm3 (0.0-0.1) 02/06/21 Unknown Metamyelocytes # 0.0 K/mm3 02/06/21 Unknown Myelocytes # 0.0 K/mm3 02/06/21 Unknown Promyelocytes # 0.0 K/mm3 02/06/21 Unknown Blast Cells # 0.0 K/mm3 02/06/21 Unknown WBC Morphology Not Reportable 02/06/21 Unknown Hypersegmented Neuts Not Reportable 02/06/21 Unknown Hyposegmented Neuts Not Reportable 02/06/21 Unknown Hypogranular Neuts Not Reportable 02/06/21 Unknown Smudge Cells Not Reportable 02/06/21 Unknown Toxic Granulation Not Reportable 02/06/21 Unknown Toxic Vacuolation Not Reportable 02/06/21 Unknown Dohle Bodies Not Reportable 02/06/21 Unknown Pelger-Huet Anomaly Not Reportable 02/06/21 Unknown Fátima Rods Not Reportable 02/06/21 Unknown Platelet Estimate Consistent w auto 02/06/21 Unknown Clumped Platelets Not Reportable 02/06/21 Unknown Plt Clumps, EDTA Not Reportable 02/06/21 Unknown Large Platelets Not Reportable 02/06/21 Unknown Giant Platelets Not Reportable 02/06/21 Unknown Platelet Satelliting Not Reportable 02/06/21 Unknown Plt Morphology Comment Not Reportable 02/06/21 Unknown RBC Morphology Normal 02/06/21 Unknown Dimorphic RBCs Not Reportable 02/06/21 Unknown Polychromasia Not Reportable 02/06/21 Unknown Hypochromasia Not Reportable 02/06/21 Unknown Poikilocytosis Not Reportable 02/06/21 Unknown Anisocytosis Not Reportable 02/06/21 Unknown Microcytosis Not Reportable 02/06/21 Unknown Macrocytosis Not Reportable 02/06/21 Unknown Spherocytes Not Reportable 02/06/21 Unknown Pappenheimer Bodies Not Reportable 02/06/21 Unknown Sickle Cells Not Reportable 02/06/21 Unknown Target Cells Not Reportable 02/06/21 Unknown Tear Drop Cells Not Reportable 02/06/21 Unknown Ovalocytes Not Reportable 02/06/21 Unknown Helmet Cells Not Reportable 02/06/21 Unknown Potter-Linda Bodies Not Reportable 02/06/21 Unknown [place] Rings Not Reportable 02/06/21 Unknown [place] Cells Not Reportable 02/06/21 Unknown Bite Cells Not Reportable 02/06/21 Unknown Crenated Cell Not Reportable 02/06/21 Unknown Elliptocytes Not Reportable 02/06/21 Unknown Acanthocytes (Spur) Not Reportable 02/06/21 Unknown Rouleaux Not Reportable 02/06/21 Unknown Hemoglobin C Crystals Not Reportable 02/06/21 Unknown Schistocytes Not Reportable 02/06/21 Unknown Malaria parasites Not Reportable 02/06/21 Unknown Aquiles Bodies Not Reportable 02/06/21 Unknown Hem Pathologist Commnt No 02/06/21 Unknown D-Dimer > 87394 ng/mlDDU (0-234) H 01/30/21 04:00 ABG pH 7.138 pH Units (7.350-7.450) L* 02/06/21 09:45 POC ABG pCO2 76.3 mmHg (32.0-48.0) H 02/06/21 04:30 ABG pCO2 72.5 mm Hg 02/06/21 09:45 POC ABG pO2 66.9 mmHg (83-108) L 02/06/21 04:30 ABG pO2 83.4 mm Hg (80.0-90.0) 02/06/21 09:45 POC ABG HCO3 26.5 02/06/21 04:30 ABG HCO3 24.0 mmol/L (20.0-26.0) 02/06/21 09:45 ABG O2 Saturation 93.4 % (95.0-99.0) L 02/06/21 09:45 ABG O2 Content 15.1 (0.0-44) 02/06/21 09:45 POC ABG Base Excess -3.4 02/06/21 04:30 ABG Base Excess -6.0 mmol/L (-2.0-3.0) L 02/06/21 09:45 ABG Hemoglobin 11.7 gm/dl (14.0-18.0) L 02/06/21 09:45 ABG Oxyhemoglobin 88.2 (94-98) L 02/06/21 04:30 ABG Carboxyhemoglobin 1.8 % (0.0-5.0) 02/06/21 09:45 ABG Methemoglobin 0.6 % (0.0-1.5) 02/06/21 09:45 ABG Sodium 137.3 mmol/L (136.0-145.0) 02/06/21 04:30 ABG Potassium 3.4 mmol/L (3.40-4.50) 02/06/21 04:30 ABG Chloride 104.0 mmol/L (98-107) 02/06/21 04:30 ABG Glucose 134 mg/dL (65-95) H 02/06/21 04:30 Oxyhemoglobin 91.2 % (95.0-99.0) L 02/06/21 09:45 Carboxyhemoglobin 1.1 (0.5-1.5) 02/06/21 04:30 FiO2 90 % 02/06/21 09:45 FiO2 % 90.0 02/06/21 04:30 Sodium 137 mmol/L (137-145) 02/06/21 Unknown Potassium 3.5 mmol/L (3.6-5.0) L 02/06/21 Unknown Chloride 100.5 mmol/L (98-107) 02/06/21 Unknown Carbon Dioxide 22 mmol/L (22-30) 02/06/21 Unknown Anion Gap 18 mmol/L 02/06/21 Unknown BUN 58 mg/dL (9-20) H 02/06/21 Unknown Creatinine 6.6 mg/dL (0.8-1.3) H 02/06/21 Unknown Estimated GFR 10 ml/min 02/06/21 Unknown BUN/Creatinine Ratio 9 % 02/06/21 Unknown Glucose 107 mg/dL (75-100) H 02/06/21 Unknown POC Glucose 120 mg/dL (70-105) H 02/06/21 11:11 Hemoglobin A1c 6.3 % (4-6) H 02/02/21 16:00 Lactic Acid 1.90 mmol/L (0.7-2.0) 01/24/21 14:38 Calcium 6.7 mg/dL (8.4-10.2) L 02/06/21 Unknown Phosphorus 8.00 mg/dL (2.5-4.5) H D 02/06/21 Unknown Magnesium 2.20 mg/dL (1.7-2.3) 02/04/21 04:45 Ferritin 763.9 ng/mL (30.0-300.0) H 01/30/21 04:00 Total Bilirubin 1.50 mg/dL (0.1-1.2) H 01/26/21 05:47 AST 37 units/L (5-40) 01/26/21 05:47 ALT 29 units/L (7-56) 01/26/21 05:47 Alkaline Phosphatase 70 units/L (35-129) 01/26/21 05:47 Lactate Dehydrogenase 424 units/L (91-180) H 01/30/21 04:00 C-Reactive Protein 23.90 mg/dL (0.00-1.30) H 01/30/21 04:00 Total Protein 7.2 g/dL (6.3-8.2) 01/26/21 05:47 Albumin 2.2 g/dL (3.9-5) L 01/26/21 05:47 Albumin/Globulin Ratio 0.4 % 01/26/21 05:47 Triglycerides 293 mg/dL (2-149) H 01/30/21 06:00 Procalcitonin 0.92 ng/mL (<0.15) 01/22/21 22:57 Arterial Blood Glucose 134 mg/dL (65-95) H 02/06/21 04:30 Arterial Blood Ionized Calcium 3.9 mg/dL (4.6-5.3) L 02/06/21 04:30 Urine Color Nehal (Yellow) 01/22/21 22:39 Urine Turbidity Cloudy (Clear) 01/22/21 22:39 Urine pH 5.0 (5.0-7.0) 01/22/21 22:39 Ur Specific [place] 1.017 (1.003-1.030) 01/22/21 22:39 Urine Protein 100 mg/dl mg/dL (Negative) 01/22/21 22:39 Urine Glucose (UA) Neg mg/dL (Negative) 01/22/21 22:39 Urine Ketones Neg mg/dL (Negative) 01/22/21 22:39 Urine Blood Mod (Negative) 01/22/21 22:39 Urine Nitrite Neg (Negative) 01/22/21 22:39 Urine Bilirubin Neg (Negative) 01/22/21 22:39 Urine Urobilinogen 2.0 mg/dL (<2.0) 01/22/21 22:39 Ur Leukocyte Esterase Mod (Negative) 01/22/21 22:39 Urine WBC (Auto) < 1.0 /HPF (0.0-6.0) 01/22/21 22:39 Urine RBC (Auto) < 1.0 /HPF (0.0-6.0) 01/22/21 22:39 U Epithel Cells (Auto) < 1.0 /HPF (0-13.0) 01/22/21 22:39 Urine Osmolality 416 Mosm/kg 01/30/21 12:15 Urine Total Volume 2300 ml 01/30/21 12:00 Urine Creatinine 53.0 mg/dL (0.1-20.0) H 01/30/21 12:00 Ur Creatinine 24 Hour 1.2 (0.8-2.8) 01/30/21 12:00 Urine Sodium 28 mmol/L 01/22/21 22:39 Nasal Screen MRSA (PCR) Negative (Negative) 02/02/21 13:20 Random Vancomycin 13.2 ug/mL (0-40.0) 02/04/21 04:45 Coronavirus (PCR) Positive (Negative) A 01/23/21 08:41 Hepatitis A IgM Ab Non-reactive (NonReactive) 02/03/21 Unknown Hep Bs Antigen Non-reactive (Negative) 02/03/21 Unknown Hep B Core IgM Ab Non-reactive (NonReactive) 02/03/21 Unknown Hepatitis C Antibody Non-reactive (NonReactive) 02/03/21 Unknown Microbiology: Microbiology 02/04/21 16:01 Peripheral/Venous Blood Culture - Preliminary 02/04/21 16:01 Peripheral/Venous Blood Culture - Preliminary 02/04/21 Unknown Tracheal Aspirate Sputum Culture - Preliminary 02/04/21 Unknown Urine,Black [place] Urine Culture - Preliminary NO GROWTH AFTER 24 HOURS Black/IV: Voiding Method Indwelling Catheter Active Medications - Current Medications Current Medications: Generic Name Dose Route Start Last Admin Trade Name Freq PRN Reason Stop Dose Admin Acetaminophen 650 mg 01/23/21 02:25 Acetaminophen 650 Mg Rect Supp VA Q4H PRN Pain, Mild (1-3) Acetaminophen 650 mg 01/24/21 12:58 02/05/21 22:06 Acetaminophen 325 Mg/10.15 Ml Oral Liqd Unit Dose FEEDTUBE 650 mg Q6H PRN Administration Pain, Mild (1-3) Lipase/Protease/Amylase 1 each 01/26/21 14:25 Lipase 10,500/Protease 25,000/Amylase 43,750 (Units) Dr Cap FEEDTUBE PRN PRN For Clogged Feeding Tube Dextrose 50 ml 01/27/21 07:24 Dextrose 50% In Water (25gm) 50 Ml Syringe IV Q30MIN PRN Hypoglycemia Protocol Enoxaparin Sodium 120 mg 01/26/21 11:00 02/06/21 09:13 Enoxaparin 120 Mg/0.8 Ml Inj SUB-Q 120 mg Q24HR CECE Administration Famotidine 20 mg 01/24/21 10:00 02/06/21 09:13 Famotidine 20 Mg/2 Ml Inj IV 20 mg DAILY CECE Administration Fentanyl 50 mcg 01/22/21 22:39 Fentanyl 100 Mcg/2 Ml Inj IV Q10MIN PRN ANALGESIA Hydrophilic Ointment 1 applic 01/22/21 22:39 Lip Therapy Vaseline TP Q2HR PRN Dry Lips Fentanyl Citrate 2,000 mcg in 100 mls @ 6.124 mls/hr 01/22/21 23:00 02/06/21 10:12 Fentanyl Drip Premix IV 4 mcg/kg/hr TITR CECE 24.494 mls/hr Administration Protocol 1 MCG/KG/HR Propofol 1,000 mg in 100 mls @ 3.674 mls/hr 01/22/21 23:45 02/06/21 10:13 Diprivan 10 Mg/Ml IV 15 mcg/kg/min TITR CECE 11.022 mls/hr Administration Protocol 5 MCG/KG/MIN Norepinephrine 4 mg in 250 mls @ 7.5 mls/hr 01/28/21 14:00 02/06/21 10:58 Levophed Drip 4 Mg/Ns 250 Ml IV 4 mcg/min TITR CECE 15 mls/hr Administration Protocol 2 MCG/MIN Dexmedetomidine HCl 1,000 mcg/ 260 mls @ 6.368 mls/hr 01/30/21 20:00 02/06/21 00:56 Sodium Chloride IV 1.4 mcg/kg/hr TITRATE CECE 44.579 mls/hr Administration Protocol 0.2 MCG/KG/HR Sodium Chloride 100 mls @ 999 mls/hr 02/04/21 13:00 Nacl 0.9% IV [place] PRN Hypotension Sodium Bicarbonate 150 meq/ 1,150 mls @ 125 mls/hr 02/06/21 11:30 02/06/21 11:31 Dextrose IV 125 mls/hr DIRECT CECE Administration Cefepime HCl 2 gm in 100 mls @ 200 mls/hr 02/06/21 22:00 Cefepime/Ns 2 Gm/100 Ml IV 02/08/21 22:29 QHS CECE Multi-Ingred Cream/Lotion/Oil/Oint 1 applic 01/22/21 22:39 02/01/21 09:33 Mineral Oil/Petrolatum, White Ophth Oint 3.5 Gm OU 1 applic Q4HR PRN Administration Dry Eye(s) Ondansetron HCl 4 mg 01/23/21 02:17 Ondansetron 4 Mg/2 Ml Inj IV Q8H PRN Nausea And Vomiting Simple Syrup 15 ml 01/26/21 14:25 Simple Syrup 15 Ml FEEDTUBE PRN PRN Hypoglycemia Simple Syrup 30 ml 01/26/21 14:25 Simple Syrup 15 Ml FEEDTUBE PRN PRN Hypoglycemia Sodium Bicarbonate 325 mg 01/26/21 14:25 Sodium Bicarbonate 325 Mg Tab FEEDTUBE PRN PRN For Clogged Feeding Tube Sodium Bicarbonate 50 meq 02/06/21 11:00 02/06/21 10:51 Sodium Bicarb 8.4% 50 Meq/50 Ml Syringe IV 02/06/21 13:00 50 meq ONCE CECE Administration Sodium Bicarbonate 50 meq 02/06/21 11:00 02/06/21 10:51 Sodium Bicarb 8.4% 50 Meq/50 Ml Syringe IV 02/06/21 13:00 50 meq ONCE CECE Administration Nutrition/Malnutrition Assess - Dietary Evaluation Nutrition/Malnutrition Findings: Nutrition Notes Start: 01/26/21 13:59 Freq: Status: Active Protocol: Document 02/05/21 12:59 CW (Rec: 02/05/21 13:09 CW [id number]) Nutrition Notes Initial or Follow up Reassessment Current Diagnosis Acute Kidney Injury,Diabetes, Sepsis,Hypertension, Respiratory Failure, Hyperlipidemia Other Pertinent Diagnosis on HD, COVID-19 (+), bilat pneu Current Diet TF - Nepro at 30 ml/hr Labs/Tests 02/04/2021 Na 149 BG 139 BUN 99 Cr 8.5 P 8.4 Pertinent Medications levophed propfol at 11.022(290 kcal provided) Height 5 ft 8 in Weight 131.7 kg [place] Body Weight (kg) 70.00 BMI 44.1 Weight change and time frame weight stable Weight Status Morbidly Obese Subjective/Other Information F/U for proning, HD, and vent status. Propofol has been increased at this time. Will adjust accordingly. Weight stable. Pt continues to receive HD daily. TF running at goal of 30 at this time. TF is being well tolerated. Burn Absent Trauma Absent GI Symptoms None Difficulty In Swallowing Skin Integrity/Comment Intact Current % PO Negligible Minimum of two criteria No physical signs of malnutrition #1 Nutrition Diagnosis Inadequate oral intake Diagnosis Progress(for reassessment Continues documentation) Is patient on ventilator? Yes Is Patient Ambulatory and/or Out of Bed No REE-([facility]-confined to bed) 2514.168 Kcal/Kg value to use for calculation 14 Approximate Energy Requirements Using 1844 kcal/Kg Calculation Used for Recommendations Kcal/kg Additional Notes Pro needs >1.2g/kg adjBW: > 115g/day for HD needs Fluid needs per MD Nutrition Intervention Change Diet Order: Increase TF regimen and flush Nutrition Support: If running continuous feed x 24 hrs without proning: Nepro at 36 ml/hr with a free water flush of 400ml water flush q4h for hypernatremia, Once resolved resume flush of 200 ml q4h. If in prone position x 12/hr day: While in prone position: Nepro at 20 ml/hr with free water flush of 100 ml q4h or per MD order. While in supine position: Nepro at 65 ml/hr with a free water flush of 400 ml q4h for hypernatremia. Once hypernatremia resolve, free water flush of 200 ml q4h or per MD order. Kcal 1,555 Protein (gm) 70 Fluid (mL) 628 Goal #1 TF tolerance Goal #2 TF to meet at least 75% energy and pro needs Anticipated Discharge Needs: unable to determine at this time Follow-Up By: 02/10/21 Additional Comments F/U proning, propofol, HD, vent status <CHRISTINA GRAHAM M - Last Filed: 02/06/21 12:36> Hospitalist Physical - Constitutional Vitals: Temp Pulse Resp BP Pulse Ox 100.9 F H 113 H 26 H 109/58 96 02/06/21 12:00 02/06/21 11:39 02/06/21 09:00 02/06/21 11:39 02/06/21 11:39 Results - Labs CBC & Chem 7: 02/06/21 Unknown 02/06/21 Unknown Labs: Laboratory Last Values WBC 13.5 K/mm3 (4.5-11.0) H 02/06/21 Unknown RBC 2.98 M/mm3 (3.65-5.03) L 02/06/21 Unknown Hgb 9.3 gm/dl (11.8-15.2) L 02/06/21 Unknown Hct 28.6 % (35.5-45.6) L 02/06/21 Unknown MCV 96 fl (84-94) H 02/06/21 Unknown MCH 31 pg (28-32) 02/06/21 Unknown MCHC 32 % (32-34) 02/06/21 Unknown RDW 14.2 % (13.2-15.2) 02/06/21 Unknown Plt Count 227 K/mm3 (140-440) 02/06/21 Unknown Lymph % (Auto) 8.4 % (13.4-35.0) L 02/05/21 01:50 [place] % (Auto) 3.5 % (0.0-7.3) 02/05/21 01:50 Eos % (Auto) 1.5 % (0.0-4.3) 02/05/21 01:50 Baso % (Auto) 0.5 % (0.0-1.8) 02/05/21 01:50 Lymph # (Auto) 0.6 K/mm3 (1.2-5.4) L 02/05/21 01:50 [place] # (Auto) 0.2 K/mm3 (0.0-0.8) 02/05/21 01:50 Eos # (Auto) 0.1 K/mm3 (0.0-0.4) 02/05/21 01:50 Baso # (Auto) 0.0 K/mm3 (0.0-0.1) 02/05/21 01:50 Add Manual Diff Complete 02/06/21 Unknown Total Counted 100 02/06/21 Unknown Seg Neutrophils % 86.1 % (40.0-70.0) H 02/05/21 01:50 Seg Neuts % (Manual) 87.0 % (40.0-70.0) H 02/06/21 Unknown Band Neutrophils % 1.0 % 02/06/21 Unknown Lymphocytes % (Manual) 7.0 % (13.4-35.0) L 02/06/21 Unknown Reactive Lymphs % (Man) 1.0 % 01/27/21 05:29 Monocytes % (Manual) 2.0 % (0.0-7.3) 01/30/21 05:00 Eosinophils % (Manual) 4.0 % (0.0-4.3) 02/06/21 Unknown Basophils % (Manual) 1.0 % (0.0-1.8) 02/06/21 Unknown Nucleated RBC % Not Reportable 02/06/21 Unknown Seg Neutrophils # 6.0 K/mm3 (1.8-7.7) 02/05/21 01:50 Seg Neutrophils # Man 11.7 K/mm3 (1.8-7.7) H 02/06/21 Unknown Band Neutrophils # 0.1 K/mm3 02/06/21 Unknown Lymphocytes # (Manual) 0.9 K/mm3 (1.2-5.4) L 02/06/21 Unknown Abs React Lymphs (Man) 0.0 K/mm3 02/06/21 Unknown Monocytes # (Manual) 0.0 K/mm3 (0.0-0.8) 02/06/21 Unknown Eosinophils # (Manual) 0.5 K/mm3 (0.0-0.4) H 02/06/21 Unknown Basophils # (Manual) 0.1 K/mm3 (0.0-0.1) 02/06/21 Unknown Metamyelocytes # 0.0 K/mm3 02/06/21 Unknown Myelocytes # 0.0 K/mm3 02/06/21 Unknown Promyelocytes # 0.0 K/mm3 02/06/21 Unknown Blast Cells # 0.0 K/mm3 02/06/21 Unknown WBC Morphology Not Reportable 02/06/21 Unknown Hypersegmented Neuts Not Reportable 02/06/21 Unknown Hyposegmented Neuts Not Reportable 02/06/21 Unknown Hypogranular Neuts Not Reportable 02/06/21 Unknown Smudge Cells Not Reportable 02/06/21 Unknown Toxic Granulation Not Reportable 02/06/21 Unknown Toxic Vacuolation Not Reportable 02/06/21 Unknown Dohle Bodies Not Reportable 02/06/21 Unknown Pelger-Huet Anomaly Not Reportable 02/06/21 Unknown Fátima Rods Not Reportable 02/06/21 Unknown Platelet Estimate Consistent w auto 02/06/21 Unknown Clumped Platelets Not Reportable 02/06/21 Unknown Plt Clumps, EDTA Not Reportable 02/06/21 Unknown Large Platelets Not Reportable 02/06/21 Unknown Giant Platelets Not Reportable 02/06/21 Unknown Platelet Satelliting Not Reportable 02/06/21 Unknown Plt Morphology Comment Not Reportable 02/06/21 Unknown RBC Morphology Normal 02/06/21 Unknown Dimorphic RBCs Not Reportable 02/06/21 Unknown Polychromasia Not Reportable 02/06/21 Unknown Hypochromasia Not Reportable 02/06/21 Unknown Poikilocytosis Not Reportable 02/06/21 Unknown Anisocytosis Not Reportable 02/06/21 Unknown Microcytosis Not Reportable 02/06/21 Unknown Macrocytosis Not Reportable 02/06/21 Unknown Spherocytes Not Reportable 02/06/21 Unknown Pappenheimer Bodies Not Reportable 02/06/21 Unknown Sickle Cells Not Reportable 02/06/21 Unknown Target Cells Not Reportable 02/06/21 Unknown Tear Drop Cells Not Reportable 02/06/21 Unknown Ovalocytes Not Reportable 02/06/21 Unknown Helmet Cells Not Reportable 02/06/21 Unknown Potter-Linda Bodies Not Reportable 02/06/21 Unknown [place] Rings Not Reportable 02/06/21 Unknown [place] Cells Not Reportable 02/06/21 Unknown Bite Cells Not Reportable 02/06/21 Unknown Crenated Cell Not Reportable 02/06/21 Unknown Elliptocytes Not Reportable 02/06/21 Unknown Acanthocytes (Spur) Not Reportable 02/06/21 Unknown Rouleaux Not Reportable 02/06/21 Unknown Hemoglobin C Crystals Not Reportable 02/06/21 Unknown Schistocytes Not Reportable 02/06/21 Unknown Malaria parasites Not Reportable 02/06/21 Unknown Aquiles Bodies Not Reportable 02/06/21 Unknown Hem Pathologist Commnt No 02/06/21 Unknown D-Dimer > 40194 ng/mlDDU (0-234) H 01/30/21 04:00 ABG pH 7.138 pH Units (7.350-7.450) L* 02/06/21 09:45 POC ABG pCO2 76.3 mmHg (32.0-48.0) H 02/06/21 04:30 ABG pCO2 72.5 mm Hg 02/06/21 09:45 POC ABG pO2 66.9 mmHg (83-108) L 02/06/21 04:30 ABG pO2 83.4 mm Hg (80.0-90.0) 02/06/21 09:45 POC ABG HCO3 26.5 02/06/21 04:30 ABG HCO3 24.0 mmol/L (20.0-26.0) 02/06/21 09:45 ABG O2 Saturation 93.4 % (95.0-99.0) L 02/06/21 09:45 ABG O2 Content 15.1 (0.0-44) 02/06/21 09:45 POC ABG Base Excess -3.4 02/06/21 04:30 ABG Base Excess -6.0 mmol/L (-2.0-3.0) L 02/06/21 09:45 ABG Hemoglobin 11.7 gm/dl (14.0-18.0) L 02/06/21 09:45 ABG Oxyhemoglobin 88.2 (94-98) L 02/06/21 04:30 ABG Carboxyhemoglobin 1.8 % (0.0-5.0) 02/06/21 09:45 ABG Methemoglobin 0.6 % (0.0-1.5) 02/06/21 09:45 ABG Sodium 137.3 mmol/L (136.0-145.0) 02/06/21 04:30 ABG Potassium 3.4 mmol/L (3.40-4.50) 02/06/21 04:30 ABG Chloride 104.0 mmol/L (98-107) 02/06/21 04:30 ABG Glucose 134 mg/dL (65-95) H 02/06/21 04:30 Oxyhemoglobin 91.2 % (95.0-99.0) L 02/06/21 09:45 Carboxyhemoglobin 1.1 (0.5-1.5) 02/06/21 04:30 FiO2 90 % 02/06/21 09:45 FiO2 % 90.0 02/06/21 04:30 Sodium 137 mmol/L (137-145) 02/06/21 Unknown Potassium 3.5 mmol/L (3.6-5.0) L 02/06/21 Unknown Chloride 100.5 mmol/L (98-107) 02/06/21 Unknown Carbon Dioxide 22 mmol/L (22-30) 02/06/21 Unknown Anion Gap 18 mmol/L 02/06/21 Unknown BUN 58 mg/dL (9-20) H 02/06/21 Unknown Creatinine 6.6 mg/dL (0.8-1.3) H 02/06/21 Unknown Estimated GFR 10 ml/min 02/06/21 Unknown BUN/Creatinine Ratio 9 % 02/06/21 Unknown Glucose 107 mg/dL (75-100) H 02/06/21 Unknown POC Glucose 120 mg/dL (70-105) H 02/06/21 11:11 Hemoglobin A1c 6.3 % (4-6) H 02/02/21 16:00 Lactic Acid 1.90 mmol/L (0.7-2.0) 01/24/21 14:38 Calcium 6.7 mg/dL (8.4-10.2) L 02/06/21 Unknown Phosphorus 8.00 mg/dL (2.5-4.5) H D 02/06/21 Unknown Magnesium 2.20 mg/dL (1.7-2.3) 02/04/21 04:45 Ferritin 763.9 ng/mL (30.0-300.0) H 01/30/21 04:00 Total Bilirubin 1.50 mg/dL (0.1-1.2) H 01/26/21 05:47 AST 37 units/L (5-40) 01/26/21 05:47 ALT 29 units/L (7-56) 01/26/21 05:47 Alkaline Phosphatase 70 units/L (35-129) 01/26/21 05:47 Lactate Dehydrogenase 424 units/L (91-180) H 01/30/21 04:00 C-Reactive Protein 23.90 mg/dL (0.00-1.30) H 01/30/21 04:00 Total Protein 7.2 g/dL (6.3-8.2) 01/26/21 05:47 Albumin 2.2 g/dL (3.9-5) L 01/26/21 05:47 Albumin/Globulin Ratio 0.4 % 01/26/21 05:47 Triglycerides 293 mg/dL (2-149) H 01/30/21 06:00 Procalcitonin 0.92 ng/mL (<0.15) 01/22/21 22:57 Arterial Blood Glucose 134 mg/dL (65-95) H 02/06/21 04:30 Arterial Blood Ionized Calcium 3.9 mg/dL (4.6-5.3) L 02/06/21 04:30 Urine Color Nehal (Yellow) 01/22/21 22:39 Urine Turbidity Cloudy (Clear) 01/22/21 22:39 Urine pH 5.0 (5.0-7.0) 01/22/21 22:39 Ur Specific [place] 1.017 (1.003-1.030) 01/22/21 22:39 Urine Protein 100 mg/dl mg/dL (Negative) 01/22/21 22:39 Urine Glucose (UA) Neg mg/dL (Negative) 01/22/21 22:39 Urine Ketones Neg mg/dL (Negative) 01/22/21 22:39 Urine Blood Mod (Negative) 01/22/21 22:39 Urine Nitrite Neg (Negative) 01/22/21 22:39 Urine Bilirubin Neg (Negative) 01/22/21 22:39 Urine Urobilinogen 2.0 mg/dL (<2.0) 01/22/21 22:39 Ur Leukocyte Esterase Mod (Negative) 01/22/21 22:39 Urine WBC (Auto) < 1.0 /HPF (0.0-6.0) 01/22/21 22:39 Urine RBC (Auto) < 1.0 /HPF (0.0-6.0) 01/22/21 22:39 U Epithel Cells (Auto) < 1.0 /HPF (0-13.0) 01/22/21 22:39 Urine Osmolality 416 Mosm/kg 01/30/21 12:15 Urine Total Volume 2300 ml 01/30/21 12:00 Urine Creatinine 53.0 mg/dL (0.1-20.0) H 01/30/21 12:00 Ur Creatinine 24 Hour 1.2 (0.8-2.8) 01/30/21 12:00 Urine Sodium 28 mmol/L 01/22/21 22:39 Nasal Screen MRSA (PCR) Negative (Negative) 02/02/21 13:20 Random Vancomycin 13.2 ug/mL (0-40.0) 02/04/21 04:45 Coronavirus (PCR) Positive (Negative) A 01/23/21 08:41 Hepatitis A IgM Ab Non-reactive (NonReactive) 02/03/21 Unknown Hep Bs Antigen Non-reactive (Negative) 02/03/21 Unknown Hep B Core IgM Ab Non-reactive (NonReactive) 02/03/21 Unknown Hepatitis C Antibody Non-reactive (NonReactive) 02/03/21 Unknown Microbiology: Microbiology 02/04/21 16:01 Peripheral/Venous Blood Culture - Preliminary 02/04/21 16:01 Peripheral/Venous Blood Culture - Preliminary 02/04/21 Unknown Tracheal Aspirate Sputum Culture - Preliminary 02/04/21 Unknown Urine,Black Port Urine Culture - Preliminary NO GROWTH AFTER 24 HOURS Black/IV: Voiding Method Indwelling Catheter Active Medications - Current Medications Current Medications: Generic Name Dose Route Start Last Admin Trade Name Freq PRN Reason Stop Dose Admin Acetaminophen 650 mg 01/23/21 02:25 Acetaminophen 650 Mg Rect Supp VA Q4H PRN Pain, Mild (1-3) Acetaminophen 650 mg 01/24/21 12:58 02/05/21 22:06 Acetaminophen 325 Mg/10.15 Ml Oral Liqd Unit Dose FEEDTUBE 650 mg Q6H PRN Administration Pain, Mild (1-3) Lipase/Protease/Amylase 1 each 01/26/21 14:25 Lipase 10,500/Protease 25,000/Amylase 43,750 (Units) Dr Cap FEEDTUBE PRN PRN For Clogged Feeding Tube Dextrose 50 ml 01/27/21 07:24 Dextrose 50% In Water (25gm) 50 Ml Syringe IV Q30MIN PRN Hypoglycemia Protocol Enoxaparin Sodium 120 mg 01/26/21 11:00 02/06/21 09:13 Enoxaparin 120 Mg/0.8 Ml Inj SUB-Q 120 mg Q24HR CECE Administration Famotidine 20 mg 01/24/21 10:00 02/06/21 09:13 Famotidine 20 Mg/2 Ml Inj IV 20 mg DAILY CECE Administration Fentanyl 50 mcg 01/22/21 22:39 Fentanyl 100 Mcg/2 Ml Inj IV Q10MIN PRN ANALGESIA Hydrophilic Ointment 1 applic 01/22/21 22:39 Lip Therapy Vaseline TP Q2HR PRN Dry Lips Fentanyl Citrate 2,000 mcg in 100 mls @ 6.124 mls/hr 01/22/21 23:00 02/06/21 10:12 Fentanyl Drip Premix IV 4 mcg/kg/hr TITR CECE 24.494 mls/hr Administration Protocol 1 MCG/KG/HR Propofol 1,000 mg in 100 mls @ 3.674 mls/hr 01/22/21 23:45 02/06/21 10:13 Diprivan 10 Mg/Ml IV 15 mcg/kg/min TITR CECE 11.022 mls/hr Administration Protocol 5 MCG/KG/MIN Norepinephrine 4 mg in 250 mls @ 7.5 mls/hr 01/28/21 14:00 02/06/21 10:58 Levophed Drip 4 Mg/Ns 250 Ml IV 4 mcg/min TITR CECE 15 mls/hr Administration Protocol 2 MCG/MIN Dexmedetomidine HCl 1,000 mcg/ 260 mls @ 6.368 mls/hr 01/30/21 20:00 02/06/21 00:56 Sodium Chloride IV 1.4 mcg/kg/hr TITRATE CECE 44.579 mls/hr Administration Protocol 0.2 MCG/KG/HR Sodium Chloride 100 mls @ 999 mls/hr 02/04/21 13:00 Nacl 0.9% IV [place] PRN Hypotension Sodium Bicarbonate 150 meq/ 1,150 mls @ 125 mls/hr 02/06/21 11:30 02/06/21 11:31 Dextrose IV 125 mls/hr DIRECT CECE Administration Cefepime HCl 2 gm in 100 mls @ 200 mls/hr 02/06/21 22:00 Cefepime/Ns 2 Gm/100 Ml IV 02/08/21 22:29 QHS CECE Multi-Ingred Cream/Lotion/Oil/Oint 1 applic 01/22/21 22:39 02/01/21 09:33 Mineral Oil/Petrolatum, White Ophth Oint 3.5 Gm OU 1 applic Q4HR PRN Administration Dry Eye(s) Ondansetron HCl 4 mg 01/23/21 02:17 Ondansetron 4 Mg/2 Ml Inj IV Q8H PRN Nausea And Vomiting Simple Syrup 15 ml 01/26/21 14:25 Simple Syrup 15 Ml FEEDTUBE PRN PRN Hypoglycemia Simple Syrup 30 ml 01/26/21 14:25 Simple Syrup 15 Ml FEEDTUBE PRN PRN Hypoglycemia Sodium Bicarbonate 325 mg 01/26/21 14:25 Sodium Bicarbonate 325 Mg Tab FEEDTUBE PRN PRN For Clogged Feeding Tube Sodium Bicarbonate 50 meq 02/06/21 11:00 02/06/21 10:51 Sodium Bicarb 8.4% 50 Meq/50 Ml Syringe IV 02/06/21 13:00 50 meq ONCE CECE Administration Sodium Bicarbonate 50 meq 02/06/21 11:00 02/06/21 10:51 Sodium Bicarb 8.4% 50 Meq/50 Ml Syringe IV 02/06/21 13:00 50 meq ONCE CECE Administration Nutrition/Malnutrition Assess - Dietary Evaluation Nutrition/Malnutrition Findings: Nutrition Notes Start: 01/26/21 13:59 Freq: Status: Active Protocol: Document 02/05/21 12:59 CW (Rec: 02/05/21 13:09 CW [id number]) Nutrition Notes Initial or Follow up Reassessment Current Diagnosis Acute Kidney Injury,Diabetes, Sepsis,Hypertension, Respiratory Failure, Hyperlipidemia Other Pertinent Diagnosis on HD, COVID-19 (+), bilat pneu Current Diet TF - Nepro at 30 ml/hr Labs/Tests 02/04/2021 Na 149 BG 139 BUN 99 Cr 8.5 P 8.4 Pertinent Medications levophed propfol at 11.022(290 kcal provided) Height 5 ft 8 in Weight 131.7 kg [place] Body Weight (kg) 70.00 BMI 44.1 Weight change and time frame weight stable Weight Status Morbidly Obese Subjective/Other Information F/U for proning, HD, and vent status. Propofol has been increased at this time. Will adjust accordingly. Weight stable. Pt continues to receive HD daily. TF running at goal of 30 at this time. TF is being well tolerated. Burn Absent Trauma Absent GI Symptoms None Difficulty In Swallowing Skin Integrity/Comment Intact Current % PO Negligible Minimum of two criteria No physical signs of malnutrition #1 Nutrition Diagnosis Inadequate oral intake Diagnosis Progress(for reassessment Continues documentation) Is patient on ventilator? Yes Is Patient Ambulatory and/or Out of Bed No REE-([facility]-confined to bed) 2514.168 Kcal/Kg value to use for calculation 14 Approximate Energy Requirements Using 1844 kcal/Kg Calculation Used for Recommendations Kcal/kg Additional Notes Pro needs >1.2g/kg adjBW: > 115g/day for HD needs Fluid needs per MD Nutrition Intervention Change Diet Order: Increase TF regimen and flush Nutrition Support: If running continuous feed x 24 hrs without proning: Nepro at 36 ml/hr with a free water flush of 400ml water flush q4h for hypernatremia, Once resolved resume flush of 200 ml q4h. If in prone position x 12/hr day: While in prone position: Nepro at 20 ml/hr with free water flush of 100 ml q4h or per MD order. While in supine position: Nepro at 65 ml/hr with a free water flush of 400 ml q4h for hypernatremia. Once hypernatremia resolve, free water flush of 200 ml q4h or per MD order. Kcal 1,555 Protein (gm) 70 Fluid (mL) 628 Goal #1 TF tolerance Goal #2 TF to meet at least 75% energy and pro needs Anticipated Discharge Needs: unable to determine at this time Follow-Up By: 02/10/21 Additional Comments F/U proning, propofol, HD, vent status
[2021-02-06] MEDS ORDERED: SODIUM CHLORIDE 0.9% 100 ML IV PRN (13:30)
[2021-02-06 17:25] LABS: ABG Base Excess -2.5 mmol/L (-2.0-3.0); ABG HCO3 28.7 mmol/L (20.0-26.0); ABG Methemoglobin 0.6 % (0.0-1.5); ABG Oxygen Saturation 96.6 % (95.0-99.0); ABG PCO2 82.8 mm Hg; ABG PO2 109.8 mm Hg (80.0-90.0)
[2021-02-06 17:28] LABS: ABG PH 7.158 pH Units (7.350-7.450)
[2021-02-06] MEDS ORDERED: SODIUM BICARB 8.4% 50 MEQ/50 ML SYRINGE IV ONE (17:58)
[2021-02-06] MEDS: ACETAMINOPHEN 325 MG/10.15 ML ORAL LIQD UNIT DOSE FEEDTUBE PRN (20:18)
[2021-02-06] MEDS: CEFEPIME/NS 2 GM/100 ML 2 GM/100 ML BAG IV SCH (21:07)
[2021-02-07] MEDS: SODIUM BICARBONATE 150 MEQ in DEXTROSE 5% IN WATER 1,000 ML IV SCH ×4 (01:27→21:34)
[2021-02-07] MEDS: dexmedeTOMIDine 1,000 MCG in SODIUM CHLORIDE 0.9% 250ML 250 ML IV SCH ×3 (01:28→14:33)
[2021-02-07] MEDS: fentaNYL DRIP Premix 2,000 MCG/100 ML BAG IV SCH ×5 (02:31→23:15)
[2021-02-07] MEDS: LORazepam 100 MG in SODIUM CHLORIDE 0.9% 50 ML, EMPTY BAG 0 ML IV SCH (03:40)
[2021-02-07] MEDS: ACETAMINOPHEN 325 MG/10.15 ML ORAL LIQD UNIT DOSE FEEDTUBE PRN (04:10)
[2021-02-07 04:22] LABS: Hematocrit 24.5 % (35.5-45.6); Hemoglobin 8.2 gm/dl (11.8-15.2); Mean Corpuscular HGB Conc 34 % (32-34); Mean Corpuscular Volume 94 fl (84-94); Platelet Count 198 K/mm3 (140-440); Red Blood Count 2.61 M/mm3 (3.65-5.03); Red Cell Distribution Width 13.6 % (13.2-15.2)
[2021-02-07 04:42] LABS: Basophils # (Auto) 0.1 K/mm3 (0.0-0.1); Basophils % (Auto) 0.8 % (0.0-1.8); Eosinophils # (Auto) 0.1 K/mm3 (0.0-0.4); Eosinophils % (Auto) 0.9 % (0.0-4.3); Lymphocytes # (Auto) 1.1 K/mm3 (1.2-5.4); Lymphocytes % (Auto) 8.9 % (13.4-35.0); Monocytes # (Auto) 0.4 K/mm3 (0.0-0.8); Monocytes % (Auto) 3.1 % (0.0-7.3)
--- NOTE | 2021-02-07 09:06 | Progress Note ---
Assessment and Plan Assessment and plan: Sepsis -Presented with low-grade fever, tachycardia, tachypnea, acute respiratory failure, pneumonia on CXR and possible acute kidney injury -Antibiotic therapy -Infectious disease consulted, appreciate recommendations -01/22 blood cultures x2 pending COVID-19 PUI -01/22 COVID-19 PCR pending -Contact/droplet precautions -Antibiotics, steroid -Infectious disease consulted Acute hypoxic respiratory failure -CCM consulted, appreciate recommendations -Wean mechanical ventilation as tolerated -Pulmonary hygiene -SPO2 monitoring -VAP bundle Bilateral pneumonia -Evidenced by CXR -Antibiotic therapy Acute kidney injury -Likely secondary to VMO -02/2020 CR/BUN 1.12/24 -Avoid nephrotoxic medications, renally dose medications -Nephrology consulted, appreciate recommendations -Strict intake and output -Renal ultrasound pending Hyponatremia -Presented with a sodium of 129 -Trend BMP -MIVF Hypochloremia -MIVF -Trend BMP Diabetes mellitus -Hemoglobin A1c pending -SSI -CC diet when appropriate Hypertension -Resume home antihypertensive regimen when appropriate -Blood pressure monitor per protocol Hyperlipidemia -Resume home statin therapy when appropriate DVT/GI prophylaxis: SCDs to bilateral lower extremities while in bed, heparin subcu, PPI Dispo: ICU History Interval history: This is a 60-year-old male with diabetes mellitus, hypertension, hyperlipidemia, chronic renal insufficiency presents to the emergency department on 01/23 with shortness of breath, fevers chills, loss of smell and taste and body aches for the past 3 days via EMS. Per EMS patient's oxygen saturation on room air was 50% and after being placed on nonrebreather it increased 75%. Upon arrival to the emergency department patient was being bagged by EMS. In the emergency room patient was intubated due to severe hypoxia, increased work of breathing and lethargy. Patient was sedated on propofol and fentanyl. Patient presented with fever, tachycardia, tachypnea and acute hypoxic respiratory failure with PNA on CXR meeting Sepsis criteria. Lab work in the emergency department revealed hyponatremia, hypokalemia, hypochloremia, elevated CR/BUN and CXR showed bilateral pneumonia. Patient was admitted to the hospital service as a COVID-19 PUI with consults to infectious disease, nephrology and critical care medicine. Sepsis COVID-19 PUI Bilateral pneumonia Acute hypoxic respiratory failure Acute kidney injury Hyponatremia Hypokalemia Hypochloremia Diabetes mellitus Hypertension Hyperlipidemia Hyperlipidemia Chronic renal insufficiency 01/24/2021 -Patient is intubated and sedated, patient is positive for COVID-19 infection. ID was consulted and put on dexamethasone and remdesivir. Patient has DEISI and nephrology is following. Creatinine stable, patient is urinating. Discussed with nephrology and he is okay with remdesivir. Pulmonary critical care is f ollowing for his vent setting. PEEP of 8 and FiO2 of 85%. Patient was alert and off sedatives. 01/25/2021; patient is intubated and on mechanical ventilation. Continue with treatment of Covid. Nephrology and ID is following. Pulmonary is following for vent management. 01/29: Patient was started on Nimbex yesterday and his ABG this morning showed respiratory acidosis with hypercapnia and his respiratory rate was increased. We will obtain a repeat ABG this afternoon. This morning patient is hypernatremic, hyperkalemic and hyperchloremic. His potassium has been corrected with the management and will obtain repeat BMP tomorrow. His kidney functions have remained stable and we will await nephrology's input. No acute events reported overnight. This morning the time my examination patient sedated with propofol, Precedex and fentanyl and paralyzed with Nimbex. He is on assist control 500/24/16 0.80. 01/30: This morning patient is hypokalemic again and was given Kayexalate. Patient has hypernatremia and hyper chloremia and his renal function is slightly worse after receiving Lasix yesterday. His D-dimer remains greater than 10,000 and he is still on a paralytic. Patient is sedated on Precedex, fentanyl, propofol. Mechanical ventilation settings seven-point /61/28. [facility] has decided to continue paralytics for 48 more hours and will attempt proning the patient. Increased free water flushes 300 cc every 4 hours. Patient states has restarted his antibiotics cefepime and vancomycin and recultured. 01/31/21 Hyperkalemia, Treated 02/01/21 Hyperkalemia, Treated 02/02: Patient's kidney function continues to worsen and a stat BMP this morning shows BUN/creatinine 20/6.1 and he remains hypocalcemic and hypernatremic, hypokalemic and hypochloremic. Patient received 2 g of calcium gluconate and Kayexalate and his repeat potassium was 4.3 this afternoon. He remains antibioti c therapy and steroids. Nephrology has placed the patient on bicarb drip given metabolic acidosis and has decided to hold off hemodialysis till tomorrow.The time my examination patient is sedated on fentanyl, Precedex and on assist control 500/20/12/0.70. s/p paralytic. 02/03: Today patient's ABG shows respiratory acidosis however it is improving, hypernatremia, hyperchloremia, metabolic acidosis on BMP, worsening kidney function BUN/creatinine 130/9.2 with hyperphosphatemia. Patient received a Vas- Cath to his right IJ for initiation of dialysis. At the time of my examination patient remains sedated on fentanyl, propofol and Precedex with vasopressor support with Levophed at 2. 02/04: At the time of examination patient was on assist control tidal volume 500, rate 40, PEEP of 12, FiO2 85%. Patient had a T-max of 100.9 and infectious disease has stopped his vancomycin given negative MRSA. This afternoon patient respiked his temperature and was pancultured again. Patient was started on hemodialysis yesterday and will receive HD again today. Patient is sedated on Precedex, propofol, fentanyl and remains on Levophed. He is on assist control tidal volume 500, rate of 30, PEEP of 12, FiO2 of 85%. Patient still has some respiratory acidosis however his hypernatremia and hyperchloremia have improved and his metabolic acidosis has resolved. Patient will receive hemodialysis today 02/05: Patient continues to have low-grade fever temp this morning time examination he was on assist control tidal volume 500, and sedated on propofol/fentanyl/Precedex and is on Levophed. Hemodialysis per nephrology. Antibiotics per ID. Patient's blood culture from 02/04 grew gram-positive cocci in clusters in 1/2 bottles and he was started on vancomycin. 02/06: Patients ABG showed respiratory acidosis and the tracings were changed however a repeat ABG showed showed acidosis.[facility] will start a bicarb drip after giving 2 amps of bicarb push. Yesterday patient blood cultures grew gram- positive cocci and he was started on vancomycin. At the time my examination patient was on assist control tidal volume 550, rate 34, PEEP 16, FiO2 90% and sedated on fentanyl, Precedex, propofol elevated pressure support with Levophed. Bilateral lower extremity Doppler ultrasounds done yesterday showed no evidence of DVT/SVT. 02/07/2021; patient is still on the vent with PEEP of 16 and FiO2 of 90%, sedated with fentanyl Precedex and propofol. Patient still requiring Levophed. Patient was sedated yesterday and was given bicarb push. Blood culture grew gram- positive cocci in clusters and he is on vancomycin, will follow identification. The high probability of a clinically significant, sudden or life threatening deterioration of the [respiratory] system(s) required my full and direct attention, intervention and personal management. The aggregate critical care time was [32] minutes. This time is in addition to time spent performing reported procedures but includes the following: [x] Data Review and interpretation [x] Patient assessment and monitoring of vital signs [x] Documentation [x] Medication orders and management History Interval history: Patient was seen and evaluated this morning Patient was intubated and was off sedatives and was alert Patient is still on pressors Hospitalist Physical - Physical exam Narrative exam: Patient was intubated and on mechanical ventilator The patient appeared well nourished and normally developed. Vital signs as documented. Head exam is unremarkable. No scleral icterus . Neck is without jugular venous distension, thyromegaly, or carotid bruits. Lungs are decreased air entry. Cardiac exam reveals regular rate and Rhythm. Abdominal exam reveals normal bowel sounds, nontender, no organomegaly. Extremities are nonedematous and both femoral and pedal pulses are normal. CHANGER FIXER: Patient is sedated - Constitutional Vitals: Temp Pulse Resp BP Pulse Ox 100.5 F H 89 34 H 115/52 97 02/07/21 07:49 02/07/21 08:31 02/07/21 08:31 02/07/21 08:31 02/07/21 08:31 General appearance: Present: no acute distress, well-nourished, other (Sedated on mechanical ventilation) HEART Score - HEART Score Risk factors: 1-2 risk factors Troponin: < normal limit - Critical Actions Critical Actions: 0-3 pts:0.9-1.7%risk of adverse cardiac event.Candidate for discharge Results - Labs CBC & Chem 7: 02/07/21 04:00 02/06/21 Unknown Labs: Laboratory Last Values WBC 12.0 K/mm3 (4.5-11.0) H 02/07/21 04:00 RBC 2.61 M/mm3 (3.65-5.03) L 02/07/21 04:00 Hgb 8.2 gm/dl (11.8-15.2) L 02/07/21 04:00 Hct 24.5 % (35.5-45.6) L 02/07/21 04:00 MCV 94 fl (84-94) 02/07/21 04:00 MCH 31 pg (28-32) 02/07/21 04:00 MCHC 34 % (32-34) 02/07/21 04:00 RDW 13.6 % (13.2-15.2) 02/07/21 04:00 Plt Count 198 K/mm3 (140-440) 02/07/21 04:00 Lymph % (Auto) 8.9 % (13.4-35.0) L 02/07/21 04:00 [place] % (Auto) 3.1 % (0.0-7.3) 02/07/21 04:00 Eos % (Auto) 0.9 % (0.0-4.3) 02/07/21 04:00 Baso % (Auto) 0.8 % (0.0-1.8) 02/07/21 04:00 Lymph # (Auto) 1.1 K/mm3 (1.2-5.4) L 02/07/21 04:00 [place] # (Auto) 0.4 K/mm3 (0.0-0.8) 02/07/21 04:00 Eos # (Auto) 0.1 K/mm3 (0.0-0.4) 02/07/21 04:00 Baso # (Auto) 0.1 K/mm3 (0.0-0.1) 02/07/21 04:00 Add Manual Diff Complete 02/06/21 Unknown Total Counted 100 02/06/21 Unknown Seg Neutrophils % 86.3 % (40.0-70.0) H 02/07/21 04:00 Seg Neuts % (Manual) 87.0 % (40.0-70.0) H 02/06/21 Unknown Band Neutrophils % 1.0 % 02/06/21 Unknown Lymphocytes % (Manual) 7.0 % (13.4-35.0) L 02/06/21 Unknown Reactive Lymphs % (Man) 1.0 % 01/27/21 05:29 Monocytes % (Manual) 2.0 % (0.0-7.3) 01/30/21 05:00 Eosinophils % (Manual) 4.0 % (0.0-4.3) 02/06/21 Unknown Basophils % (Manual) 1.0 % (0.0-1.8) 02/06/21 Unknown Nucleated RBC % Not Reportable 02/06/21 Unknown Seg Neutrophils # 10.3 K/mm3 (1.8-7.7) H 02/07/21 04:00 Seg Neutrophils # Man 11.7 K/mm3 (1.8-7.7) H 02/06/21 Unknown Band Neutrophils # 0.1 K/mm3 02/06/21 Unknown Lymphocytes # (Manual) 0.9 K/mm3 (1.2-5.4) L 02/06/21 Unknown Abs React Lymphs (Man) 0.0 K/mm3 02/06/21 Unknown Monocytes # (Manual) 0.0 K/mm3 (0.0-0.8) 02/06/21 Unknown Eosinophils # (Manual) 0.5 K/mm3 (0.0-0.4) H 02/06/21 Unknown Basophils # (Manual) 0.1 K/mm3 (0.0-0.1) 02/06/21 Unknown Metamyelocytes # 0.0 K/mm3 02/06/21 Unknown Myelocytes # 0.0 K/mm3 02/06/21 Unknown Promyelocytes # 0.0 K/mm3 02/06/21 Unknown Blast Cells # 0.0 K/mm3 02/06/21 Unknown WBC Morphology Not Reportable 02/06/21 Unknown Hypersegmented Neuts Not Reportable 02/06/21 Unknown Hyposegmented Neuts Not Reportable 02/06/21 Unknown Hypogranular Neuts Not Reportable 02/06/21 Unknown Smudge Cells Not Reportable 02/06/21 Unknown Toxic Granulation Not Reportable 02/06/21 Unknown Toxic Vacuolation Not Reportable 02/06/21 Unknown Dohle Bodies Not Reportable 02/06/21 Unknown Pelger-Huet Anomaly Not Reportable 02/06/21 Unknown Fátima Rods Not Reportable 02/06/21 Unknown Platelet Estimate Consistent w auto 02/06/21 Unknown Clumped Platelets Not Reportable 02/06/21 Unknown Plt Clumps, EDTA Not Reportable 02/06/21 Unknown Large Platelets Not Reportable 02/06/21 Unknown Giant Platelets Not Reportable 02/06/21 Unknown Platelet Satelliting Not Reportable 02/06/21 Unknown Plt Morphology Comment Not Reportable 02/06/21 Unknown RBC Morphology Normal 02/06/21 Unknown Dimorphic RBCs Not Reportable 02/06/21 Unknown Polychromasia Not Reportable 02/06/21 Unknown Hypochromasia Not Reportable 02/06/21 Unknown Poikilocytosis Not Reportable 02/06/21 Unknown Anisocytosis Not Reportable 02/06/21 Unknown Microcytosis Not Reportable 02/06/21 Unknown Macrocytosis Not Reportable 02/06/21 Unknown Spherocytes Not Reportable 02/06/21 Unknown Pappenheimer Bodies Not Reportable 02/06/21 Unknown Sickle Cells Not Reportable 02/06/21 Unknown Target Cells Not Reportable 02/06/21 Unknown Tear Drop Cells Not Reportable 02/06/21 Unknown Ovalocytes Not Reportable 02/06/21 Unknown Helmet Cells Not Reportable 02/06/21 Unknown [place] Bodies Not Reportable 02/06/21 Unknown [place] Rings Not Reportable 02/06/21 Unknown Neligh Cells Not Reportable 02/06/21 Unknown Bite Cells Not Reportable 02/06/21 Unknown Crenated Cell Not Reportable 02/06/21 Unknown Elliptocytes Not Reportable 02/06/21 Unknown Acanthocytes (Spur) Not Reportable 02/06/21 Unknown Rouleaux Not Reportable 02/06/21 Unknown Hemoglobin C Crystals Not Reportable 02/06/21 Unknown Schistocytes Not Reportable 02/06/21 Unknown Malaria parasites Not Reportable 02/06/21 Unknown Aquiles Bodies Not Reportable 02/06/21 Unknown Hem Pathologist Commnt No 02/06/21 Unknown D-Dimer > 75763 ng/mlDDU (0-234) H 01/30/21 04:00 ABG pH 7.158 pH Units (7.350-7.450) L* 02/06/21 17:00 POC ABG pCO2 76.3 mmHg (32.0-48.0) H 02/06/21 04:30 ABG pCO2 82.8 mm Hg 02/06/21 17:00 POC ABG pO2 66.9 mmHg (83-108) L 02/06/21 04:30 ABG pO2 109.8 mm Hg (80.0-90.0) H 02/06/21 17:00 POC ABG HCO3 26.5 02/06/21 04:30 ABG HCO3 28.7 mmol/L (20.0-26.0) H 02/06/21 17:00 ABG O2 Saturation 96.6 % (95.0-99.0) 02/06/21 17:00 ABG O2 Content 20.1 (0.0-44) 02/06/21 17:00 POC ABG Base Excess -3.4 02/06/21 04:30 ABG Base Excess -2.5 mmol/L (-2.0-3.0) L 02/06/21 17:00 ABG Hemoglobin 15.0 gm/dl (14.0-18.0) 02/06/21 17:00 ABG Oxyhemoglobin 88.2 (94-98) L 02/06/21 04:30 ABG Carboxyhemoglobin 1.5 % (0.0-5.0) 02/06/21 17:00 ABG Methemoglobin 0.6 % (0.0-1.5) 02/06/21 17:00 ABG Sodium 137.3 mmol/L (136.0-145.0) 02/06/21 04:30 ABG Potassium 3.4 mmol/L (3.40-4.50) 02/06/21 04:30 ABG Chloride 104.0 mmol/L (98-107) 02/06/21 04:30 ABG Glucose 134 mg/dL (65-95) H 02/06/21 04:30 Oxyhemoglobin 94.5 % (95.0-99.0) L 02/06/21 17:00 Carboxyhemoglobin 1.1 (0.5-1.5) 02/06/21 04:30 FiO2 90 % 02/06/21 17:00 FiO2 % 90.0 02/06/21 04:30 Sodium 137 mmol/L (137-145) 02/06/21 Unknown Potassium 3.5 mmol/L (3.6-5.0) L 02/06/21 Unknown Chloride 100.5 mmol/L (98-107) 02/06/21 Unknown Carbon Dioxide 22 mmol/L (22-30) 02/06/21 Unknown Anion Gap 18 mmol/L 02/06/21 Unknown BUN 58 mg/dL (9-20) H 02/06/21 Unknown Creatinine 6.6 mg/dL (0.8-1.3) H 02/06/21 Unknown Estimated GFR 10 ml/min 02/06/21 Unknown BUN/Creatinine Ratio 9 % 02/06/21 Unknown Glucose 107 mg/dL (75-100) H 02/06/21 Unknown POC Glucose 173 mg/dL (70-105) H 02/07/21 01:21 Hemoglobin A1c 6.3 % (4-6) H 02/02/21 16:00 Lactic Acid 1.90 mmol/L (0.7-2.0) 01/24/21 14:38 Calcium 6.7 mg/dL (8.4-10.2) L 02/06/21 Unknown Phosphorus 5.50 mg/dL (2.5-4.5) H D 02/07/21 04:00 Magnesium 2.20 mg/dL (1.7-2.3) 02/04/21 04:45 Ferritin 763.9 ng/mL (30.0-300.0) H 01/30/21 04:00 Total Bilirubin 1.50 mg/dL (0.1-1.2) H 01/26/21 05:47 AST 37 units/L (5-40) 01/26/21 05:47 ALT 29 units/L (7-56) 01/26/21 05:47 Alkaline Phosphatase 70 units/L (35-129) 01/26/21 05:47 Lactate Dehydrogenase 424 units/L (91-180) H 01/30/21 04:00 C-Reactive Protein 23.90 mg/dL (0.00-1.30) H 01/30/21 04:00 Total Protein 7.2 g/dL (6.3-8.2) 01/26/21 05:47 Albumin 2.2 g/dL (3.9-5) L 01/26/21 05:47 Albumin/Globulin Ratio 0.4 % 01/26/21 05:47 Triglycerides 503 mg/dL (2-149) H 02/06/21 17:00 Procalcitonin 0.92 ng/mL (<0.15) 01/22/21 22:57 Arterial Blood Glucose 134 mg/dL (65-95) H 02/06/21 04:30 Arterial Blood Ionized Calcium 3.9 mg/dL (4.6-5.3) L 02/06/21 04:30 Urine Color Nehal (Yellow) 01/22/21 22:39 Urine Turbidity Cloudy (Clear) 01/22/21 22:39 Urine pH 5.0 (5.0-7.0) 01/22/21 22:39 Ur Specific Speculator 1.017 (1.003-1.030) 01/22/21 22:39 Urine Protein 100 mg/dl mg/dL (Negative) 01/22/21 22:39 Urine Glucose (UA) Neg mg/dL (Negative) 01/22/21 22:39 Urine Ketones Neg mg/dL (Negative) 01/22/21 22:39 Urine Blood Mod (Negative) 01/22/21 22:39 Urine Nitrite Neg (Negative) 01/22/21 22:39 Urine Bilirubin Neg (Negative) 01/22/21 22:39 Urine Urobilinogen 2.0 mg/dL (<2.0) 01/22/21 22:39 Ur Leukocyte Esterase Mod (Negative) 01/22/21 22:39 Urine WBC (Auto) < 1.0 /HPF (0.0-6.0) 01/22/21 22:39 Urine RBC (Auto) < 1.0 /HPF (0.0-6.0) 01/22/21 22:39 U Epithel Cells (Auto) < 1.0 /HPF (0-13.0) 01/22/21 22:39 Urine Osmolality 416 Mosm/kg 01/30/21 12:15 Urine Total Volume 2300 ml 01/30/21 12:00 Urine Creatinine 53.0 mg/dL (0.1-20.0) H 01/30/21 12:00 Ur Creatinine 24 Hour 1.2 (0.8-2.8) 01/30/21 12:00 Urine Sodium 28 mmol/L 01/22/21 22:39 Nasal Screen MRSA (PCR) Negative (Negative) 02/02/21 13:20 Random Vancomycin 13.2 ug/mL (0-40.0) 02/04/21 04:45 Coronavirus (PCR) Positive (Negative) A 01/23/21 08:41 Hepatitis A IgM Ab Non-reactive (NonReactive) 02/03/21 Unknown Hep Bs Antigen Non-reactive (Negative) 02/03/21 Unknown Hep B Core IgM Ab Non-reactive (NonReactive) 02/03/21 Unknown Hepatitis C Antibody Non-reactive (NonReactive) 02/03/21 Unknown Black/IV: Voiding Method Indwelling Catheter Active Medications - Current Medications Current Medications: Generic Name Dose Route Start Last Admin Trade Name Freq PRN Reason Stop Dose Admin Acetaminophen 650 mg 01/23/21 02:25 Acetaminophen 650 Mg Rect Supp OR Q4H PRN Pain, Mild (1-3) Acetaminophen 650 mg 01/24/21 12:58 02/07/21 04:10 Acetaminophen 325 Mg/10.15 Ml Oral Liqd Unit Dose FEEDTUBE 650 mg Q6H PRN Administration Pain, Mild (1-3) Lipase/Protease/Amylase 1 each 01/26/21 14:25 Lipase 10,500/Protease 25,000/Amylase 43,750 (Units) Dr Cap FEEDTUBE PRN PRN For Clogged Feeding Tube Dextrose 50 ml 01/27/21 07:24 Dextrose 50% In Water (25gm) 50 Ml Syringe IV Q30MIN PRN Hypoglycemia Protocol Enoxaparin Sodium 120 mg 01/26/21 11:00 02/06/21 09:13 Enoxaparin 120 Mg/0.8 Ml Inj SUB-Q 120 mg Q24HR CECE Administration Famotidine 20 mg 01/24/21 10:00 02/06/21 09:13 Famotidine 20 Mg/2 Ml Inj IV 20 mg DAILY CECE Administration Fentanyl 50 mcg 01/22/21 22:39 Fentanyl 100 Mcg/2 Ml Inj IV Q10MIN PRN ANALGESIA Hydrophilic Ointment 1 applic 01/22/21 22:39 Lip Therapy Vaseline TP Q2HR PRN Dry Lips Fentanyl Citrate 2,000 mcg in 100 mls @ 6.124 mls/hr 01/22/21 23:00 02/07/21 06:29 Fentanyl Drip Premix IV 4 mcg/kg/hr TITR CECE 24.494 mls/hr Administration Protocol 1 MCG/KG/HR Propofol 1,000 mg in 100 mls @ 3.674 mls/hr 01/22/21 23:45 02/06/21 18:37 Diprivan 10 Mg/Ml IV 0 mcg/kg/min TITR CECE 0 mls/hr Titration Protocol 5 MCG/KG/MIN Norepinephrine 4 mg in 250 mls @ 7.5 mls/hr 01/28/21 14:00 02/07/21 08:05 Levophed Drip 4 Mg/Ns 250 Ml IV 2 mcg/min TITR CECE 7.5 mls/hr Titration Protocol 2 MCG/MIN Dexmedetomidine HCl 1,000 mcg/ 260 mls @ 6.368 mls/hr 01/30/21 20:00 02/07/21 08:15 Sodium Chloride IV 1.4 mcg/kg/hr TITRATE CECE 44.579 mls/hr Administration Protocol 0.2 MCG/KG/HR Sodium Bicarbonate 150 meq/ 1,150 mls @ 200 mls/hr 02/06/21 11:30 02/07/21 08:38 Dextrose IV 200 mls/hr DIRECT CECE Administration Cefepime HCl 2 gm in 100 mls @ 200 mls/hr 02/06/21 22:00 02/06/21 21:07 Cefepime/Ns 2 Gm/100 Ml IV 02/08/21 22:29 200 mls/hr QHS CECE Administration Sodium Chloride 100 mls @ 999 mls/hr 02/06/21 13:30 Nacl 0.9% IV [place] PRN Hypotension Lorazepam 100 mg/ Sodium 100 mls @ 1 mls/hr 02/06/21 19:00 02/07/21 03:40 Chloride/ Miscellaneous IV 1 mg/hr Information TITR CECE 1 mls/hr Administration Protocol 1 MG/HR Multi-Ingred Cream/Lotion/Oil/Oint 1 applic 01/22/21 22:39 02/01/21 09:33 Mineral Oil/Petrolatum, White Ophth Oint 3.5 Gm OU 1 applic Q4HR PRN Administration Dry Eye(s) Ondansetron HCl 4 mg 01/23/21 02:17 Ondansetron 4 Mg/2 Ml Inj IV Q8H PRN Nausea And Vomiting Simple Syrup 15 ml 01/26/21 14:25 Simple Syrup 15 Ml FEEDTUBE PRN PRN Hypoglycemia Simple Syrup 30 ml 01/26/21 14:25 Simple Syrup 15 Ml FEEDTUBE PRN PRN Hypoglycemia Sodium Bicarbonate 325 mg 01/26/21 14:25 Sodium Bicarbonate 325 Mg Tab FEEDTUBE PRN PRN For Clogged Feeding Tube Nutrition/Malnutrition Assess - Dietary Evaluation Nutrition/Malnutrition Findings: Nutrition Notes Start: 01/26/21 13:59 Freq: Status: Active Protocol: Document 02/05/21 12:59 CW (Rec: 02/05/21 13:09 CW [id number]) Nutrition Notes Initial or Follow up Reassessment Current Diagnosis Acute Kidney Injury,Diabetes, Sepsis,Hypertension, Respiratory Failure, Hyperlipidemia Other Pertinent Diagnosis on HD, COVID-19 (+), bilat pneu Current Diet TF - Nepro at 30 ml/hr Labs/Tests 02/04/2021 Na 149 BG 139 BUN 99 Cr 8.5 P 8.4 Pertinent Medications levophed propfol at 11.022(290 kcal provided) Height 5 ft 8 in Weight 131.7 kg [place] Body Weight (kg) 70.00 BMI 44.1 Weight change and time frame weight stable Weight Status Morbidly Obese Subjective/Other Information F/U for proning, HD, and vent status. Propofol has been increased at this time. Will adjust accordingly. Weight stable. Pt continues to receive HD daily. TF running at goal of 30 at this time. TF is being well tolerated. Burn Absent Trauma Absent GI Symptoms None Difficulty In Swallowing Skin Integrity/Comment Intact Current % PO Negligible Minimum of two criteria No physical signs of malnutrition #1 Nutrition Diagnosis Inadequate oral intake Diagnosis Progress(for reassessment Continues documentation) Is patient on ventilator? Yes Is Patient Ambulatory and/or Out of Bed No REE-([facility]-confined to bed) 2514.168 Kcal/Kg value to use for calculation 14 Approximate Energy Requirements Using 1844 kcal/Kg Calculation Used for Recommendations Kcal/kg Additional Notes Pro needs >1.2g/kg adjBW: > 115g/day for HD needs Fluid needs per MD Nutrition Intervention Change Diet Order: Increase TF regimen and flush Nutrition Support: If running continuous feed x 24 hrs without proning: Nepro at 36 ml/hr with a free water flush of 400ml water flush q4h for hypernatremia, Once resolved resume flush of 200 ml q4h. If in prone position x 12/hr day: While in prone position: Nepro at 20 ml/hr with free water flush of 100 ml q4h or per MD order. While in supine position: Nepro at 65 ml/hr with a free water flush of 400 ml q4h for hypernatremia. Once hypernatremia resolve, free water flush of 200 ml q4h or per MD order. Kcal 1,555 Protein (gm) 70 Fluid (mL) 628 Goal #1 TF tolerance Goal #2 TF to meet at least 75% energy and pro needs Anticipated Discharge Needs: unable to determine at this time Follow-Up By: 02/10/21 Additional Comments F/U proning, propofol, HD, vent status
[2021-02-07] MEDS: FAMOTIDINE 20 MG/2 ML INJ IV SCH (09:21)
[2021-02-07] MEDS: ENOXAPARIN 120 MG/0.8 ML INJ SUB-Q SCH (09:23)
--- NOTE | 2021-02-07 10:12 | Progress Note ---
Assessment and Plan 60 y/o male with ARDS secondary most likely to COVID 19 pneumonia. 02/07/21: Biggest issue now is that patient's numbers are better with HD but now with bacteremia, concern for line infection. ID is correct in requesting line holiday. Has a picc and an Right IJ Dialysis catheter with 3 ports. Currently getting HD today. Have not seen renal yet. Will pull right IJ line post HD and plan to replace it Tuesday evening or Tuesday. Continue bicarb drip for now and will keep picc as patient has been requiring levophed. If able to be weaned off levophed, will remove picc either tomorrow or Tuesday. Continue Ativan, Precedex and Fent drips, repeat Triglycerides on Tuesday. Very very guarded prognosis. Will remove Black today as well. 02/06/21: Will add bicarb drip at 125/hr. Giving 2 amps of NaHCO3 push now. Will repeat ABG this afternoon, may just ask for Art Line if possible. HD today per renal and I spoke with them about the bicarb drip. Long discussion with Sister, Significant and other and another family member on the phone on yesterday. I tried my best to explain the severity of the clinical state but not sure if they fully understood. The patient is very very ill and history suggests that his outcome will be poor (intubated with covid and renal failure on dialysis). This was expressed with the family. Will continue all supportive measures. Checking triglyceride levels today. 02/05/21: WIll increase PEEP to 16. Can increase pressors if needed for BP control during HD. Follow up cultures. If negative will scan legs and arms again for VTE. Repeat ABG at 1400 today. Will speak with sister and Girlfriend on phone today. 02/04/21: HD again today per renal notes. Likely will need daily HD. New fevers. Will draw blood and urine cultures if able to still make urine.. Repeat CXR. May need to check dopplers if all of those studies are negative. Wean FIO2 as tolerated. Unable to tolerate proning. Guarded to poor prognosis. 02/03/21: HD today per renal. Wean FiO2 as tolerated. No further proning as patient cannot tolerate it, however with volume removal, may consider in the future. Use pressors to keep MAPs 65 and greater for HD purporses so volume can be removed. (IJ was wide open (filled with blood)) with patient sitting up at 45 degrees. Guarded prognosis. 02/02/21: After renal speaks with family, will place vascath today. Agree with bicarb drip but will order some pushes now to help with pH. Overall prognosis is very very guarded to poor now that patient is COVID positive and requiring renal replacement therapy. Mortality is very high in these patients. Continue steroid therapy. Unable to tolerate proning. 01/30/21: Will plan for proning later today. Goal will be at least 12hrs but long is okay. Speaking with pharmacy to see if we can get paralytic for a longer period of time. Regardless will prone. Continue heavy sedation. BP stable. Continue steroids. Very very guarded prognosis. 01/29/21: will increase tidal volume and/or increase respiratory rate. Repeat ABG this afternoon. Continue paralytic and adequate sedation. Continue steroid and remdesivir, follow up any renal recs. Prognosis remains guarded. Wean Fio 2 for sats >88% 01/28/21: Increased PEEP to 16. Will paralyze patient today and increase sedation. Ordering picc line for possible vasopressor therapy needs. Continue BID steroids. Renal function is slightly better today with fluids but could be making oxygenation worse. Not able to diurese. Still making urine. Continue Remdesivir. Watch for fever curve. If not improvement in the next 24 hours with paralyzing, will prone tomorrow morning. 01/27/21: Continue PEEP at 14. No weaning until FiO2 is at or below 40-45%. Continue anticoagulation. Getting Remdesivir now. Continue BID steroids. Renal has increased the fluids. Monitor urine output and renal function. Overall prognosis is very very guarded, especially if renal status worsens. 01/26/21: Increase PEEP to 14. Will add Precedex therapy. If patient does not respond to increases in PEEP may need to prone. Will place patient on lovenox and will feed patient. Remdesivir coming. Continue BID steroids. Prognosis is guarded. 01/25/21: Hold on proning today. Continue BID steroids. ABG this AM was adequate. Pending abg tomorrow, may increase PEEP if not able to wean FiO2 any further. Per charting Remdesivir to arrive tomorrow. Guarded prognosis. 01/24/21: Continue BID steroids. No abg done this am but able to wean FiO2. Will obtain ABG in the am. Hold on proning for right now. Renal following, would like to diurese but they are given fluids for deisi. Agree with ID assessment and note. Guarded prognosis. 1. Increase steroids to BID given size 2. Check with ID to see if he is a candidate for remdesivir or any other experiemental therapy 3. Hold on proning for right now 4. Renal consulted and giving IVF's currently Guarded prognosis. CCT 31 minutes. Subjective Date of service: 02/07/21 Principal diagnosis: DEISI Interval history: ABG better but not uploaded in the system. pH is 7.2 now. FiO2 is down to 70% and sats are 99. Ativan had to be started as his Diprovan had to be stopped secondary to elevated triglycerides. Continues to have fever. Already on therapeutic antiocoagulation dosing. Remainder is negative. Objective Vital Signs - 12hr 02/06/21 02/06/21 02/07/21 23:00 23:27 00:00 Temperature 99.2 F Pulse Rate 109 H 107 H 105 H Pulse Rate [ 117 H From Monitor] Respiratory 27 H 26 H 26 H Rate Blood Pressure 130/65 130/65 123/62 O2 Sat by Pulse 98 98 98 Oximetry 02/07/21 02/07/21 02/07/21 00:20 01:00 02:01 Temperature Pulse Rate 105 H 101 H 105 H Pulse Rate [ From Monitor] Respiratory 26 H 24 Rate Blood Pressure 132/60 119/57 152/74 O2 Sat by Pulse 98 98 96 Oximetry 02/07/21 02/07/21 02/07/21 03:00 04:00 05:00 Temperature 100.9 F H Pulse Rate 109 H 110 H 111 H Pulse Rate [ 117 H From Monitor] Respiratory 29 H 27 H 28 H Rate Blood Pressure 143/63 131/66 145/68 O2 Sat by Pulse 96 96 96 Oximetry 02/07/21 02/07/21 02/07/21 05:12 06:01 07:00 Temperature Pulse Rate 109 H 111 H 97 H Pulse Rate [ From Monitor] Respiratory 30 H 34 H Rate Blood Pressure 132/69 130/61 101/52 O2 Sat by Pulse 96 98 96 Oximetry 04/08/2002/07/21 02/07/21 07:15 07:30 07:45 Temperature Pulse Rate 95 H 95 H 93 H Pulse Rate [ From Monitor] Respiratory 34 H 34 H 34 H Rate Blood Pressure 98/47 112/57 112/57 O2 Sat by Pulse 97 97 97 Oximetry 02/07/21 02/07/21 02/07/21 07:49 07:55 08:00 Temperature 100.5 F H Pulse Rate 91 H 95 H Pulse Rate [ From Monitor] Respiratory 34 H Rate Blood Pressure 112/57 112/63 O2 Sat by Pulse 97 98 Oximetry 02/07/21 02/07/21 08:15 08:31 Temperature Pulse Rate 91 H 89 Pulse Rate [ From Monitor] Respiratory 34 H 34 H Rate Blood Pressure 121/55 115/52 O2 Sat by Pulse 96 97 Oximetry Constitutional: comatose Eyes: non-icteric ENT: other (orally intubated and sedated) Neck: supple Effort: mildly labored Ascultation: Bilateral: clear Percussion: Bilateral: not dull Cardiovascular: regular rate and rhythm Gastrointestinal: normoactive bowel sounds CBC and BMP: 02/07/21 04:00 02/06/21 Unknown ABG, PT/INR, D-dimer: ABG ABG pH 7.158 pH Units (7.350-7.450) L* 02/06/21 17:00 POC ABG pCO2 76.3 mmHg (32.0-48.0) H 02/06/21 04:30 ABG pCO2 82.8 mm Hg 02/06/21 17:00 POC ABG pO2 66.9 mmHg (83-108) L 02/06/21 04:30 ABG pO2 109.8 mm Hg (80.0-90.0) H 02/06/21 17:00 POC ABG HCO3 26.5 02/06/21 04:30 ABG O2 Saturation 96.6 % (95.0-99.0) 02/06/21 17:00 PT/INR, D-dimer D-Dimer > 83672 ng/mlDDU (0-234) H 01/30/21 04:00 Abnormal lab findings: Abnormal Labs 01/22/21 01/22/21 01/22/21 22:39 22:57 22:57 WBC RBC Hgb Hct MCV MCH MCHC RDW Plt Count Lymph % (Auto) 6.6 L Lymph # (Auto) 0.5 L Seg Neutrophils % 87.6 H Seg Neuts % (Manual) Lymphocytes % (Manual) Seg Neutrophils # Seg Neutrophils # Man Lymphocytes # (Manual) Eosinophils # (Manual) D-Dimer ABG pH POC ABG pCO2 POC ABG pO2 ABG pO2 ABG HCO3 ABG O2 Saturation ABG Base Excess ABG Hemoglobin ABG Oxyhemoglobin ABG Sodium ABG Potassium ABG Chloride ABG Glucose Oxyhemoglobin Carboxyhemoglobin Sodium 129 L Potassium 3.4 L Chloride 90.4 L Carbon Dioxide BUN 34 H Creatinine 1.5 H Glucose 146 H POC Glucose Hemoglobin A1c Lactic Acid Calcium 7.8 L Phosphorus Magnesium Ferritin Total Bilirubin AST 75 H ALT 57 H Lactate Dehydrogenase C-Reactive Protein Albumin 2.9 L Triglycerides Arterial Blood Glucose Arterial Blood Ionized Calcium Urine Creatinine 301.2 H Coronavirus (PCR) 01/22/21 01/22/21 01/22/21 22:57 22:57 22:57 WBC RBC Hgb Hct MCV MCH MCHC RDW Plt Count Lymph % (Auto) Lymph # (Auto) Seg Neutrophils % Seg Neuts % (Manual) Lymphocytes % (Manual) Seg Neutrophils # Seg Neutrophils # Man Lymphocytes # (Manual) Eosinophils # (Manual) D-Dimer 1173.89 H ABG pH POC ABG pCO2 POC ABG pO2 ABG pO2 ABG HCO3 ABG O2 Saturation ABG Base Excess ABG Hemoglobin ABG Oxyhemoglobin ABG Sodium ABG Potassium ABG Chloride ABG Glucose Oxyhemoglobin Carboxyhemoglobin Sodium Potassium Chloride Carbon Dioxide BUN Creatinine Glucose 149 H POC Glucose Hemoglobin A1c Lactic Acid 2.10 H* Calcium Phosphorus Magnesium Ferritin Total Bilirubin AST ALT Lactate Dehydrogenase 685 H C-Reactive Protein 30.40 H Albumin Triglycerides Arterial Blood Glucose Arterial Blood Ionized Calcium Urine Creatinine Coronavirus (PCR) 01/22/21 01/23/21 01/23/21 22:57 08:41 10:01 WBC RBC Hgb Hct MCV MCH MCHC RDW Plt Count Lymph % (Auto) Lymph # (Auto) Seg Neutrophils % Seg Neuts % (Manual) Lymphocytes % (Manual) Seg Neutrophils # Seg Neutrophils # Man Lymphocytes # (Manual) Eosinophils # (Manual) D-Dimer ABG pH POC ABG pCO2 POC ABG pO2 ABG pO2 ABG HCO3 ABG O2 Saturation ABG Base Excess ABG Hemoglobin ABG Oxyhemoglobin ABG Sodium ABG Potassium ABG Chloride ABG Glucose Oxyhemoglobin Carboxyhemoglobin Sodium 131 L Potassium Chloride 88.7 L Carbon Dioxide 18 L BUN 36 H Creatinine 1.6 H Glucose 147 H POC Glucose Hemoglobin A1c Lactic Acid Calcium 7.5 L Phosphorus Magnesium Ferritin 1207.0 H Total Bilirubin AST ALT Lactate Dehydrogenase C-Reactive Protein Albumin Triglycerides Arterial Blood Glucose Arterial Blood Ionized Calcium Urine Creatinine Coronavirus (PCR) Positive A 01/23/21 01/23/21 01/24/21 20:49 Unknown 00:10 WBC RBC Hgb Hct MCV MCH MCHC RDW Plt Count Lymph % (Auto) Lymph # (Auto) Seg Neutrophils % Seg Neuts % (Manual) Lymphocytes % (Manual) Seg Neutrophils # Seg Neutrophils # Man Lymphocytes # (Manual) Eosinophils # (Manual) D-Dimer ABG pH POC ABG pCO2 POC ABG pO2 ABG pO2 165.4 H ABG HCO3 ABG O2 Saturation ABG Base Excess -2.5 L ABG Hemoglobin ABG Oxyhemoglobin ABG Sodium ABG Potassium ABG Chloride ABG Glucose Oxyhemoglobin Carboxyhemoglobin Sodium 130 L Potassium Chloride 91.0 L Carbon Dioxide 20 L BUN 52 H Creatinine 3.8 H D Glucose 150 H POC Glucose 125 H Hemoglobin A1c Lactic Acid Calcium 8.0 L Phosphorus Magnesium Ferritin Total Bilirubin AST 42 H ALT Lactate Dehydrogenase C-Reactive Protein Albumin 2.4 L Triglycerides Arterial Blood Glucose Arterial Blood Ionized Calcium Urine Creatinine Coronavirus (PCR) 01/24/21 01/24/21 01/24/21 05:05 05:05 05:05 WBC 14.0 H RBC Hgb Hct MCV 95 H MCH 33 H MCHC RDW Plt Count Lymph % (Auto) Lymph # (Auto) Seg Neutrophils % Seg Neuts % (Manual) 91.0 H Lymphocytes % (Manual) 4.0 L Seg Neutrophils # Seg Neutrophils # Man 12.7 H Lymphocytes # (Manual) 0.6 L Eosinophils # (Manual) D-Dimer 6159.48 H ABG pH POC ABG pCO2 POC ABG pO2 ABG pO2 ABG HCO3 ABG O2 Saturation ABG Base Excess ABG Hemoglobin ABG Oxyhemoglobin ABG Sodium ABG Potassium ABG Chloride ABG Glucose Oxyhemoglobin Carboxyhemoglobin Sodium Potassium Chloride Carbon Dioxide BUN Creatinine Glucose POC Glucose Hemoglobin A1c Lactic Acid Calcium Phosphorus Magnesium Ferritin 1178.0 H Total Bilirubin AST ALT Lactate Dehydrogenase C-Reactive Protein Albumin Triglycerides Arterial Blood Glucose Arterial Blood Ionized Calcium Urine Creatinine Coronavirus (PCR) 01/24/21 01/24/21 01/24/21 05:05 05:05 05:05 WBC RBC Hgb Hct MCV MCH MCHC RDW Plt Count Lymph % (Auto) Lymph # (Auto) Seg Neutrophils % Seg Neuts % (Manual) Lymphocytes % (Manual) Seg Neutrophils # Seg Neutrophils # Man Lymphocytes # (Manual) Eosinophils # (Manual) D-Dimer ABG pH POC ABG pCO2 POC ABG pO2 ABG pO2 ABG HCO3 ABG O2 Saturation ABG Base Excess ABG Hemoglobin ABG Oxyhemoglobin ABG Sodium ABG Potassium ABG Chloride ABG Glucose Oxyhemoglobin Carboxyhemoglobin Sodium 132 L Potassium Chloride 93.1 L Carbon Dioxide 21 L BUN 57 H Creatinine 3.7 H Glucose 133 H POC Glucose Hemoglobin A1c Lactic Acid 2.20 H* Calcium 7.7 L Phosphorus Magnesium Ferritin Total Bilirubin AST ALT Lactate Dehydrogenase 658 H C-Reactive Protein 33.20 H Albumin 2.4 L Triglycerides Arterial Blood Glucose Arterial Blood Ionized Calcium Urine Creatinine Coronavirus (PCR) 01/24/21 01/24/21 01/24/21 05:34 06:00 17:35 WBC RBC Hgb Hct MCV MCH MCHC RDW Plt Count Lymph % (Auto) Lymph # (Auto) Seg Neutrophils % Seg Neuts % (Manual) Lymphocytes % (Manual) Seg Neutrophils # Seg Neutrophils # Man Lymphocytes # (Manual) Eosinophils # (Manual) D-Dimer ABG pH POC ABG pCO2 POC ABG pO2 ABG pO2 ABG HCO3 ABG O2 Saturation ABG Base Excess ABG Hemoglobin ABG Oxyhemoglobin ABG Sodium ABG Potassium ABG Chloride ABG Glucose Oxyhemoglobin Carboxyhemoglobin Sodium Potassium Chloride Carbon Dioxide BUN Creatinine Glucose POC Glucose 136 H 137 H Hemoglobin A1c Lactic Acid Calcium Phosphorus Magnesium 2.80 H Ferritin Total Bilirubin AST ALT Lactate Dehydrogenase C-Reactive Protein Albumin Triglycerides Arterial Blood Glucose Arterial Blood Ionized Calcium Urine Creatinine Coronavirus (PCR) 01/25/21 01/25/21 01/25/21 04:15 05:40 05:40 WBC RBC Hgb Hct MCV 95 H MCH 33 H MCHC 35 H RDW Plt Count Lymph % (Auto) Lymph # (Auto) Seg Neutrophils % Seg Neuts % (Manual) 95.0 H Lymphocytes % (Manual) 3.0 L Seg Neutrophils # Seg Neutrophils # Man 7.8 H Lymphocytes # (Manual) 0.2 L Eosinophils # (Manual) D-Dimer ABG pH POC ABG pCO2 POC ABG pO2 63.2 L ABG pO2 ABG HCO3 ABG O2 Saturation ABG Base Excess ABG Hemoglobin ABG Oxyhemoglobin 89.6 L ABG Sodium ABG Potassium ABG Chloride ABG Glucose 165 H Oxyhemoglobin Carboxyhemoglobin 0.3 L Sodium Potassium Chloride Carbon Dioxide BUN 67 H Creatinine 3.4 H Glucose 153 H POC Glucose Hemoglobin A1c Lactic Acid Calcium 7.5 L Phosphorus Magnesium Ferritin Total Bilirubin 1.40 H AST 62 H ALT Lactate Dehydrogenase C-Reactive Protein Albumin 2.6 L Triglycerides Arterial Blood Glucose 165 H Arterial Blood Ionized Calcium 4.3 L Urine Creatinine Coronavirus (PCR) 01/25/21 01/25/21 01/25/21 05:59 12:00 17:17 WBC RBC Hgb Hct MCV MCH MCHC RDW Plt Count Lymph % (Auto) Lymph # (Auto) Seg Neutrophils % Seg Neuts % (Manual) Lymphocytes % (Manual) Seg Neutrophils # Seg Neutrophils # Man Lymphocytes # (Manual) Eosinophils # (Manual) D-Dimer ABG pH POC ABG pCO2 POC ABG pO2 ABG pO2 ABG HCO3 ABG O2 Saturation ABG Base Excess ABG Hemoglobin ABG Oxyhemoglobin ABG Sodium ABG Potassium ABG Chloride ABG Glucose Oxyhemoglobin Carboxyhemoglobin Sodium Potassium Chloride Carbon Dioxide BUN Creatinine Glucose POC Glucose 140 H 143 H 149 H Hemoglobin A1c Lactic Acid Calcium Phosphorus Magnesium Ferritin Total Bilirubin AST ALT Lactate Dehydrogenase C-Reactive Protein Albumin Triglycerides Arterial Blood Glucose Arterial Blood Ionized Calcium Urine Creatinine Coronavirus (PCR) 01/25/21 01/26/21 01/26/21 23:41 03:43 05:46 WBC RBC Hgb Hct MCV MCH MCHC RDW Plt Count Lymph % (Auto) Lymph # (Auto) Seg Neutrophils % Seg Neuts % (Manual) Lymphocytes % (Manual) Seg Neutrophils # Seg Neutrophils # Man Lymphocytes # (Manual) Eosinophils # (Manual) D-Dimer ABG pH POC ABG pCO2 POC ABG pO2 70.0 L ABG pO2 ABG HCO3 ABG O2 Saturation ABG Base Excess ABG Hemoglobin ABG Oxyhemoglobin 91.9 L ABG Sodium ABG Potassium ABG Chloride 109.0 H ABG Glucose 165 H Oxyhemoglobin Carboxyhemoglobin Sodium Potassium Chloride Carbon Dioxide BUN Creatinine Glucose POC Glucose 132 H 161 H Hemoglobin A1c Lactic Acid Calcium Phosphorus Magnesium Ferritin Total Bilirubin AST ALT Lactate Dehydrogenase C-Reactive Protein Albumin Triglycerides Arterial Blood Glucose 165 H Arterial Blood Ionized Calcium 4.5 L Urine Creatinine Coronavirus (PCR) 01/26/21 01/26/21 01/26/21 05:47 05:47 05:47 WBC RBC Hgb Hct 35.3 L MCV 96 H MCH 33 H MCHC RDW Plt Count Lymph % (Auto) Lymph # (Auto) Seg Neutrophils % Seg Neuts % (Manual) 96.0 H Lymphocytes % (Manual) 2.0 L Seg Neutrophils # Seg Neutrophils # Man Lymphocytes # (Manual) 0.1 L Eosinophils # (Manual) D-Dimer > 19571 H ABG pH POC ABG pCO2 POC ABG pO2 ABG pO2 ABG HCO3 ABG O2 Saturation ABG Base Excess ABG Hemoglobin ABG Oxyhemoglobin ABG Sodium ABG Potassium ABG Chloride ABG Glucose Oxyhemoglobin Carboxyhemoglobin Sodium Potassium Chloride Carbon Dioxide BUN 57 H Creatinine 2.2 H Glucose 185 H POC Glucose Hemoglobin A1c Lactic Acid Calcium 8.1 L Phosphorus Magnesium Ferritin Total Bilirubin AST ALT Lactate Dehydrogenase C-Reactive Protein Albumin Triglycerides Arterial Blood Glucose Arterial Blood Ionized Calcium Urine Creatinine Coronavirus (PCR) 01/26/21 01/26/21 01/26/21 05:47 05:47 05:47 WBC RBC Hgb Hct MCV MCH MCHC RDW Plt Count Lymph % (Auto) Lymph # (Auto) Seg Neutrophils % Seg Neuts % (Manual) Lymphocytes % (Manual) Seg Neutrophils # Seg Neutrophils # Man Lymphocytes # (Manual) Eosinophils # (Manual) D-Dimer ABG pH POC ABG pCO2 POC ABG pO2 ABG pO2 ABG HCO3 ABG O2 Saturation ABG Base Excess ABG Hemoglobin ABG Oxyhemoglobin ABG Sodium ABG Potassium ABG Chloride ABG Glucose Oxyhemoglobin Carboxyhemoglobin Sodium Potassium Chloride 107.1 H Carbon Dioxide BUN 56 H Creatinine 2.2 H Glucose 188 H POC Glucose Hemoglobin A1c Lactic Acid Calcium 8.0 L Phosphorus Magnesium Ferritin 1178.0 H Total Bilirubin 1.50 H AST ALT Lactate Dehydrogenase 588 H C-Reactive Protein 40.10 H Albumin 2.2 L Triglycerides Arterial Blood Glucose Arterial Blood Ionized Calcium Urine Creatinine Coronavirus (PCR) 01/26/21 01/26/21 01/26/21 11:34 18:17 23:20 WBC RBC Hgb Hct MCV MCH MCHC RDW Plt Count Lymph % (Auto) Lymph # (Auto) Seg Neutrophils % Seg Neuts % (Manual) Lymphocytes % (Manual) Seg Neutrophils # Seg Neutrophils # Man Lymphocytes # (Manual) Eosinophils # (Manual) D-Dimer ABG pH POC ABG pCO2 POC ABG pO2 ABG pO2 ABG HCO3 ABG O2 Saturation ABG Base Excess ABG Hemoglobin ABG Oxyhemoglobin ABG Sodium ABG Potassium ABG Chloride ABG Glucose Oxyhemoglobin Carboxyhemoglobin Sodium Potassium Chloride Carbon Dioxide BUN Creatinine Glucose POC Glucose 129 H 205 H 155 H Hemoglobin A1c Lactic Acid Calcium Phosphorus Magnesium Ferritin Total Bilirubin AST ALT Lactate Dehydrogenase C-Reactive Protein Albumin Triglycerides Arterial Blood Glucose Arterial Blood Ionized Calcium Urine Creatinine Coronavirus (PCR) 01/27/21 01/27/21 01/27/21 02:45 05:29 05:29 WBC RBC 3.58 L Hgb 11.7 L Hct 34.9 L MCV 97 H MCH 33 H MCHC RDW Plt Count Lymph % (Auto) Lymph # (Auto) Seg Neutrophils % Seg Neuts % (Manual) 88.0 H Lymphocytes % (Manual) 7.0 L Seg Neutrophils # Seg Neutrophils # Man Lymphocytes # (Manual) 0.5 L Eosinophils # (Manual) D-Dimer ABG pH 7.319 L POC ABG pCO2 50.7 H POC ABG pO2 63.0 L ABG pO2 ABG HCO3 ABG O2 Saturation ABG Base Excess ABG Hemoglobin ABG Oxyhemoglobin ABG Sodium 145.2 H ABG Potassium 5.1 H ABG Chloride 114.0 H ABG Glucose 178 H Oxyhemoglobin Carboxyhemoglobin Sodium Potassium Chloride Carbon Dioxide BUN Creatinine Glucose POC Glucose Hemoglobin A1c Lactic Acid Calcium Phosphorus Magnesium 4.00 H Ferritin Total Bilirubin AST ALT Lactate Dehydrogenase C-Reactive Protein Albumin Triglycerides Arterial Blood Glucose 178 H Arterial Blood Ionized Calcium Urine Creatinine Coronavirus (PCR) 01/27/21 01/27/21 01/27/21 05:29 05:29 05:31 WBC RBC Hgb Hct MCV MCH MCHC RDW Plt Count Lymph % (Auto) Lymph # (Auto) Seg Neutrophils % Seg Neuts % (Manual) Lymphocytes % (Manual) Seg Neutrophils # Seg Neutrophils # Man Lymphocytes # (Manual) Eosinophils # (Manual) D-Dimer ABG pH POC ABG pCO2 POC ABG pO2 ABG pO2 ABG HCO3 ABG O2 Saturation ABG Base Excess ABG Hemoglobin ABG Oxyhemoglobin ABG Sodium ABG Potassium ABG Chloride ABG Glucose Oxyhemoglobin Carboxyhemoglobin Sodium Potassium 5.2 H Chloride 109.6 H Carbon Dioxide BUN 67 H Creatinine 2.8 H Glucose 195 H POC Glucose 176 H Hemoglobin A1c Lactic Acid Calcium 7.9 L Phosphorus Magnesium Ferritin Total Bilirubin AST ALT Lactate Dehydrogenase C-Reactive Protein Albumin Triglycerides 160 H Arterial Blood Glucose Arterial Blood Ionized Calcium Urine Creatinine Coronavirus (PCR) 01/27/21 01/27/21 01/27/21 11:27 18:08 23:30 WBC RBC Hgb Hct MCV MCH MCHC RDW Plt Count Lymph % (Auto) Lymph # (Auto) Seg Neutrophils % Seg Neuts % (Manual) Lymphocytes % (Manual) Seg Neutrophils # Seg Neutrophils # Man Lymphocytes # (Manual) Eosinophils # (Manual) D-Dimer ABG pH POC ABG pCO2 POC ABG pO2 ABG pO2 ABG HCO3 ABG O2 Saturation ABG Base Excess ABG Hemoglobin ABG Oxyhemoglobin ABG Sodium ABG Potassium ABG Chloride ABG Glucose Oxyhemoglobin Carboxyhemoglobin Sodium Potassium Chloride Carbon Dioxide BUN Creatinine Glucose POC Glucose 189 H 212 H 175 H Hemoglobin A1c Lactic Acid Calcium Phosphorus Magnesium Ferritin Total Bilirubin AST ALT Lactate Dehydrogenase C-Reactive Protein Albumin Triglycerides Arterial Blood Glucose Arterial Blood Ionized Calcium Urine Creatinine Coronavirus (PCR) 01/28/21 01/28/21 01/28/21 03:58 04:00 04:00 WBC RBC Hgb Hct MCV MCH MCHC RDW Plt Count Lymph % (Auto) Lymph # (Auto) Seg Neutrophils % Seg Neuts % (Manual) Lymphocytes % (Manual) Seg Neutrophils # Seg Neutrophils # Man Lymphocytes # (Manual) Eosinophils # (Manual) D-Dimer > 40313 H ABG pH POC ABG pCO2 POC ABG pO2 52.9 L ABG pO2 ABG HCO3 ABG O2 Saturation ABG Base Excess ABG Hemoglobin ABG Oxyhemoglobin 84.1 L ABG Sodium 148.9 H ABG Potassium ABG Chloride 117.0 H ABG Glucose 194 H Oxyhemoglobin Carboxyhemoglobin Sodium Potassium Chloride Carbon Dioxide BUN Creatinine Glucose POC Glucose Hemoglobin A1c Lactic Acid Calcium Phosphorus Magnesium Ferritin Total Bilirubin AST ALT Lactate Dehydrogenase 679 H C-Reactive Protein 17.10 H Albumin Triglycerides Arterial Blood Glucose 194 H Arterial Blood Ionized Calcium Urine Creatinine Coronavirus (PCR) 01/28/21 01/28/21 01/28/21 04:00 05:00 06:00 WBC RBC 3.59 L Hgb 11.6 L Hct 34.8 L MCV 97 H MCH MCHC RDW Plt Count Lymph % (Auto) Lymph # (Auto) Seg Neutrophils % Seg Neuts % (Manual) 96.0 H Lymphocytes % (Manual) 3.0 L Seg Neutrophils # Seg Neutrophils # Man Lymphocytes # (Manual) 0.2 L Eosinophils # (Manual) D-Dimer ABG pH POC ABG pCO2 POC ABG pO2 ABG pO2 ABG HCO3 ABG O2 Saturation ABG Base Excess ABG Hemoglobin ABG Oxyhemoglobin ABG Sodium ABG Potassium ABG Chloride ABG Glucose Oxyhemoglobin Carboxyhemoglobin Sodium Potassium Chloride Carbon Dioxide BUN Creatinine Glucose POC Glucose 159 H Hemoglobin A1c Lactic Acid Calcium Phosphorus Magnesium Ferritin 798.0 H Total Bilirubin AST ALT Lactate Dehydrogenase C-Reactive Protein Albumin Triglycerides Arterial Blood Glucose Arterial Blood Ionized Calcium Urine Creatinine Coronavirus (PCR) 01/28/21 01/28/21 01/28/21 06:00 06:00 08:12 WBC RBC Hgb Hct MCV MCH MCHC RDW Plt Count Lymph % (Auto) Lymph # (Auto) Seg Neutrophils % Seg Neuts % (Manual) Lymphocytes % (Manual) Seg Neutrophils # Seg Neutrophils # Man Lymphocytes # (Manual) Eosinophils # (Manual) D-Dimer ABG pH POC ABG pCO2 POC ABG pO2 ABG pO2 ABG HCO3 ABG O2 Saturation ABG Base Excess ABG Hemoglobin ABG Oxyhemoglobin ABG Sodium ABG Potassium ABG Chloride ABG Glucose Oxyhemoglobin Carboxyhemoglobin Sodium Potassium Chloride 111.9 H Carbon Dioxide BUN 59 H Creatinine 2.2 H Glucose 189 H POC Glucose 181 H Hemoglobin A1c Lactic Acid Calcium 8.1 L Phosphorus Magnesium 3.20 H Ferritin Total Bilirubin AST ALT Lactate Dehydrogenase C-Reactive Protein Albumin Triglycerides Arterial Blood Glucose Arterial Blood Ionized Calcium Urine Creatinine Coronavirus (PCR) 01/28/21 01/28/21 01/28/21 12:03 16:43 23:51 WBC RBC Hgb Hct MCV MCH MCHC RDW Plt Count Lymph % (Auto) Lymph # (Auto) Seg Neutrophils % Seg Neuts % (Manual) Lymphocytes % (Manual) Seg Neutrophils # Seg Neutrophils # Man Lymphocytes # (Manual) Eosinophils # (Manual) D-Dimer ABG pH POC ABG pCO2 POC ABG pO2 ABG pO2 ABG HCO3 ABG O2 Saturation ABG Base Excess ABG Hemoglobin ABG Oxyhemoglobin ABG Sodium ABG Potassium ABG Chloride ABG Glucose Oxyhemoglobin Carboxyhemoglobin Sodium Potassium Chloride Carbon Dioxide BUN Creatinine Glucose POC Glucose 164 H 198 H 196 H Hemoglobin A1c Lactic Acid Calcium Phosphorus Magnesium Ferritin Total Bilirubin AST ALT Lactate Dehydrogenase C-Reactive Protein Albumin Triglycerides Arterial Blood Glucose Arterial Blood Ionized Calcium Urine Creatinine Coronavirus (PCR) 01/29/21 01/29/21 01/29/21 05:00 05:23 06:00 WBC RBC Hgb Hct MCV MCH MCHC RDW Plt Count Lymph % (Auto) Lymph # (Auto) Seg Neutrophils % Seg Neuts % (Manual) Lymphocytes % (Manual) Seg Neutrophils # Seg Neutrophils # Man Lymphocytes # (Manual) Eosinophils # (Manual) D-Dimer ABG pH 7.119 L POC ABG pCO2 87.1 H POC ABG pO2 ABG pO2 ABG HCO3 ABG O2 Saturation ABG Base Excess ABG Hemoglobin ABG Oxyhemoglobin ABG Sodium 152.5 H ABG Potassium 5.7 H ABG Chloride 120.0 H ABG Glucose 217 H Oxyhemoglobin Carboxyhemoglobin Sodium 151 H Potassium 5.9 H D Chloride 117.8 H Carbon Dioxide BUN 54 H Creatinine 2.2 H Glucose 208 H POC Glucose 180 H Hemoglobin A1c Lactic Acid Calcium 7.9 L Phosphorus Magnesium Ferritin Total Bilirubin AST ALT Lactate Dehydrogenase C-Reactive Protein Albumin Triglycerides Arterial Blood Glucose 217 H Arterial Blood Ionized Calcium Urine Creatinine Coronavirus (PCR) 01/29/21 01/29/21 01/29/21 12:29 17:28 18:05 WBC RBC Hgb Hct MCV MCH MCHC RDW Plt Count Lymph % (Auto) Lymph # (Auto) Seg Neutrophils % Seg Neuts % (Manual) Lymphocytes % (Manual) Seg Neutrophils # Seg Neutrophils # Man Lymphocytes # (Manual) Eosinophils # (Manual) D-Dimer ABG pH POC ABG pCO2 POC ABG pO2 ABG pO2 ABG HCO3 ABG O2 Saturation ABG Base Excess ABG Hemoglobin ABG Oxyhemoglobin ABG Sodium ABG Potassium ABG Chloride ABG Glucose Oxyhemoglobin Carboxyhemoglobin Sodium 151 H Potassium 5.5 H Chloride 118.2 H Carbon Dioxide BUN 52 H Creatinine 2.2 H Glucose 224 H POC Glucose 181 H 203 H Hemoglobin A1c Lactic Acid Calcium 8.0 L Phosphorus Magnesium Ferritin Total Bilirubin AST ALT Lactate Dehydrogenase C-Reactive Protein Albumin Triglycerides Arterial Blood Glucose Arterial Blood Ionized Calcium Urine Creatinine Coronavirus (PCR) 01/29/21 01/29/21 01/29/21 18:13 23:34 Unknown WBC RBC Hgb Hct MCV 101 H MCH MCHC RDW 15.7 H Plt Count Lymph % (Auto) Lymph # (Auto) Seg Neutrophils % Seg Neuts % (Manual) 95.0 H Lymphocytes % (Manual) 3.0 L Seg Neutrophils # Seg Neutrophils # Man 8.0 H Lymphocytes # (Manual) 0.3 L Eosinophils # (Manual) D-Dimer ABG pH 7.223 L POC ABG pCO2 64.8 H POC ABG pO2 63.6 L ABG pO2 ABG HCO3 ABG O2 Saturation ABG Base Excess ABG Hemoglobin ABG Oxyhemoglobin 89.4 L ABG Sodium 152.9 H ABG Potassium 5.3 H ABG Chloride 121.0 H ABG Glucose 227 H Oxyhemoglobin Carboxyhemoglobin Sodium Potassium Chloride Carbon Dioxide BUN Creatinine Glucose POC Glucose 198 H Hemoglobin A1c Lactic Acid Calcium Phosphorus Magnesium Ferritin Total Bilirubin AST ALT Lactate Dehydrogenase C-Reactive Protein Albumin Triglycerides Arterial Blood Glucose 227 H Arterial Blood Ionized Calcium Urine Creatinine Coronavirus (PCR) 01/30/21 01/30/21 01/30/21 04:00 04:00 04:00 WBC RBC Hgb Hct MCV MCH MCHC RDW Plt Count Lymph % (Auto) Lymph # (Auto) Seg Neutrophils % Seg Neuts % (Manual) Lymphocytes % (Manual) Seg Neutrophils # Seg Neutrophils # Man Lymphocytes # (Manual) Eosinophils # (Manual) D-Dimer > 65909 H ABG pH POC ABG pCO2 POC ABG pO2 ABG pO2 ABG HCO3 ABG O2 Saturation ABG Base Excess ABG Hemoglobin ABG Oxyhemoglobin ABG Sodium ABG Potassium ABG Chloride ABG Glucose Oxyhemoglobin Carboxyhemoglobin Sodium Potassium Chloride Carbon Dioxide BUN Creatinine Glucose 234 H POC Glucose Hemoglobin A1c Lactic Acid Calcium Phosphorus Magnesium Ferritin 763.9 H Total Bilirubin AST ALT Lactate Dehydrogenase 424 H C-Reactive Protein 23.90 H Albumin Triglycerides Arterial Blood Glucose Arterial Blood Ionized Calcium Urine Creatinine Coronavirus (PCR) 01/30/21 01/30/21 01/30/21 04:24 05:00 05:16 WBC RBC 3.57 L Hgb 11.3 L Hct 35.4 L MCV 99 H MCH MCHC RDW 15.6 H Plt Count Lymph % (Auto) Lymph # (Auto) Seg Neutrophils % Seg Neuts % (Manual) 97.0 H Lymphocytes % (Manual) 1.0 L Seg Neutrophils # Seg Neutrophils # Man 8.6 H Lymphocytes # (Manual) 0.1 L Eosinophils # (Manual) D-Dimer ABG pH 7.235 L POC ABG pCO2 69.7 H POC ABG pO2 61.0 L ABG pO2 ABG HCO3 ABG O2 Saturation ABG Base Excess ABG Hemoglobin ABG Oxyhemoglobin 89 L ABG Sodium 154.2 H ABG Potassium 5.4 H ABG Chloride 121.0 H ABG Glucose 247 H Oxyhemoglobin Carboxyhemoglobin Sodium Potassium Chloride Carbon Dioxide BUN Creatinine Glucose POC Glucose 238 H Hemoglobin A1c Lactic Acid Calcium Phosphorus Magnesium Ferritin Total Bilirubin AST ALT Lactate Dehydrogenase C-Reactive Protein Albumin Triglycerides Arterial Blood Glucose 247 H Arterial Blood Ionized Calcium Urine Creatinine Coronavirus (PCR) 01/30/21 01/30/21 01/30/21 06:00 11:28 12:00 WBC RBC Hgb Hct MCV MCH MCHC RDW Plt Count Lymph % (Auto) Lymph # (Auto) Seg Neutrophils % Seg Neuts % (Manual) Lymphocytes % (Manual) Seg Neutrophils # Seg Neutrophils # Man Lymphocytes # (Manual) Eosinophils # (Manual) D-Dimer ABG pH POC ABG pCO2 POC ABG pO2 ABG pO2 ABG HCO3 ABG O2 Saturation ABG Base Excess ABG Hemoglobin ABG Oxyhemoglobin ABG Sodium ABG Potassium ABG Chloride ABG Glucose Oxyhemoglobin Carboxyhemoglobin Sodium 152 H Potassium 5.3 H Chloride 120.5 H Carbon Dioxide BUN 50 H Creatinine 2.3 H Glucose 239 H POC Glucose 153 H Hemoglobin A1c Lactic Acid Calcium 8.2 L Phosphorus Magnesium 2.60 H Ferritin Total Bilirubin AST ALT Lactate Dehydrogenase C-Reactive Protein Albumin Triglycerides 293 H Arterial Blood Glucose Arterial Blood Ionized Calcium Urine Creatinine 53.0 H Coronavirus (PCR) 01/30/21 01/30/21 01/31/21 18:49 23:06 04:00 WBC RBC Hgb Hct MCV MCH MCHC RDW Plt Count Lymph % (Auto) Lymph # (Auto) Seg Neutrophils % Seg Neuts % (Manual) Lymphocytes % (Manual) Seg Neutrophils # Seg Neutrophils # Man Lymphocytes # (Manual) Eosinophils # (Manual) D-Dimer ABG pH POC ABG pCO2 POC ABG pO2 ABG pO2 ABG HCO3 ABG O2 Saturation ABG Base Excess ABG Hemoglobin ABG Oxyhemoglobin ABG Sodium ABG Potassium ABG Chloride ABG Glucose Oxyhemoglobin Carboxyhemoglobin Sodium 156 H Potassium 5.9 H Chloride 122.6 H Carbon Dioxide BUN 61 H Creatinine 3.2 H Glucose 205 H POC Glucose 220 H 192 H Hemoglobin A1c Lactic Acid Calcium 8.0 L Phosphorus Magnesium Ferritin Total Bilirubin AST ALT Lactate Dehydrogenase C-Reactive Protein Albumin Triglycerides Arterial Blood Glucose Arterial Blood Ionized Calcium Urine Creatinine Coronavirus (PCR) 01/31/21 01/31/21 01/31/21 04:40 05:17 11:33 WBC RBC Hgb Hct MCV MCH MCHC RDW Plt Count Lymph % (Auto) Lymph # (Auto) Seg Neutrophils % Seg Neuts % (Manual) Lymphocytes % (Manual) Seg Neutrophils # Seg Neutrophils # Man Lymphocytes # (Manual) Eosinophils # (Manual) D-Dimer ABG pH 7.161 L* POC ABG pCO2 POC ABG pO2 ABG pO2 142.2 H ABG HCO3 28.3 H ABG O2 Saturation ABG Base Excess -3.2 L ABG Hemoglobin ABG Oxyhemoglobin ABG Sodium ABG Potassium ABG Chloride ABG Glucose Oxyhemoglobin Carboxyhemoglobin Sodium Potassium Chloride Carbon Dioxide BUN Creatinine Glucose POC Glucose 200 H 167 H Hemoglobin A1c Lactic Acid Calcium Phosphorus Magnesium Ferritin Total Bilirubin AST ALT Lactate Dehydrogenase C-Reactive Protein Albumin Triglycerides Arterial Blood Glucose Arterial Blood Ionized Calcium Urine Creatinine Coronavirus (PCR) 01/31/21 01/31/21 01/31/21 14:00 17:10 23:24 WBC RBC Hgb Hct MCV MCH MCHC RDW Plt Count Lymph % (Auto) Lymph # (Auto) Seg Neutrophils % Seg Neuts % (Manual) Lymphocytes % (Manual) Seg Neutrophils # Seg Neutrophils # Man Lymphocytes # (Manual) Eosinophils # (Manual) D-Dimer ABG pH 7.205 L POC ABG pCO2 POC ABG pO2 ABG pO2 90.9 H ABG HCO3 26.5 H ABG O2 Saturation ABG Base Excess -2.7 L ABG Hemoglobin 12.3 L ABG Oxyhemoglobin ABG Sodium ABG Potassium ABG Chloride ABG Glucose Oxyhemoglobin 93.9 L Carboxyhemoglobin Sodium Potassium Chloride Carbon Dioxide BUN Creatinine Glucose POC Glucose 190 H 203 H Hemoglobin A1c Lactic Acid Calcium Phosphorus Magnesium Ferritin Total Bilirubin AST ALT Lactate Dehydrogenase C-Reactive Protein Albumin Triglycerides Arterial Blood Glucose Arterial Blood Ionized Calcium Urine Creatinine Coronavirus (PCR) 02/01/21 02/01/21 02/01/21 05:15 06:22 10:20 WBC RBC Hgb Hct MCV MCH MCHC RDW Plt Count Lymph % (Auto) Lymph # (Auto) Seg Neutrophils % Seg Neuts % (Manual) Lymphocytes % (Manual) Seg Neutrophils # Seg Neutrophils # Man Lymphocytes # (Manual) Eosinophils # (Manual) D-Dimer ABG pH 6.920 L* 7.116 L* POC ABG pCO2 POC ABG pO2 ABG pO2 102.9 H 113.1 H ABG HCO3 28.2 H ABG O2 Saturation 92.9 L ABG Base Excess -6.9 L -5.8 L ABG Hemoglobin 11.6 L 9.5 L ABG Oxyhemoglobin ABG Sodium ABG Potassium ABG Chloride ABG Glucose Oxyhemoglobin 90.5 L 94.6 L Carboxyhemoglobin Sodium Potassium Chloride Carbon Dioxide BUN Creatinine Glucose POC Glucose 221 H Hemoglobin A1c Lactic Acid Calcium Phosphorus Magnesium Ferritin Total Bilirubin AST ALT Lactate Dehydrogenase C-Reactive Protein Albumin Triglycerides Arterial Blood Glucose Arterial Blood Ionized Calcium Urine Creatinine Coronavirus (PCR) 02/01/21 02/01/21 02/01/21 11:12 12:35 16:00 WBC RBC Hgb Hct MCV MCH MCHC RDW Plt Count Lymph % (Auto) Lymph # (Auto) Seg Neutrophils % Seg Neuts % (Manual) Lymphocytes % (Manual) Seg Neutrophils # Seg Neutrophils # Man Lymphocytes # (Manual) Eosinophils # (Manual) D-Dimer ABG pH 7.155 L* POC ABG pCO2 POC ABG pO2 ABG pO2 94.6 H ABG HCO3 ABG O2 Saturation ABG Base Excess -6.5 L ABG Hemoglobin 13.1 L ABG Oxyhemoglobin ABG Sodium ABG Potassium ABG Chloride ABG Glucose Oxyhemoglobin 93.7 L Carboxyhemoglobin Sodium 155 H Potassium 5.1 H Chloride 120.5 H Carbon Dioxide BUN 90 H Creatinine 6.1 H D Glucose 238 H POC Glucose 207 H Hemoglobin A1c Lactic Acid Calcium 7.4 L Phosphorus Magnesium Ferritin Total Bilirubin AST ALT Lactate Dehydrogenase C-Reactive Protein Albumin Triglycerides Arterial Blood Glucose Arterial Blood Ionized Calcium Urine Creatinine Coronavirus (PCR) 02/01/21 02/01/21 02/02/21 17:10 23:47 04:04 WBC RBC 3.02 L Hgb 9.8 L Hct 30.7 L MCV 102 H MCH MCHC RDW 15.6 H Plt Count Lymph % (Auto) 4.2 L Lymph # (Auto) 0.3 L Seg Neutrophils % Seg Neuts % (Manual) Lymphocytes % (Manual) Seg Neutrophils # Seg Neutrophils # Man Lymphocytes # (Manual) Eosinophils # (Manual) D-Dimer ABG pH POC ABG pCO2 POC ABG pO2 ABG pO2 ABG HCO3 ABG O2 Saturation ABG Base Excess ABG Hemoglobin ABG Oxyhemoglobin ABG Sodium ABG Potassium ABG Chloride ABG Glucose Oxyhemoglobin Carboxyhemoglobin Sodium Potassium Chloride Carbon Dioxide BUN Creatinine Glucose POC Glucose 238 H 235 H Hemoglobin A1c Lactic Acid Calcium Phosphorus Magnesium Ferritin Total Bilirubin AST ALT Lactate Dehydrogenase C-Reactive Protein Albumin Triglycerides Arterial Blood Glucose Arterial Blood Ionized Calcium Urine Creatinine Coronavirus (PCR) 02/02/21 02/02/21 02/02/21 05:18 05:35 11:28 WBC RBC Hgb Hct MCV MCH MCHC RDW Plt Count Lymph % (Auto) Lymph # (Auto) Seg Neutrophils % Seg Neuts % (Manual) Lymphocytes % (Manual) Seg Neutrophils # Seg Neutrophils # Man Lymphocytes # (Manual) Eosinophils # (Manual) D-Dimer ABG pH 7.195 L* POC ABG pCO2 POC ABG pO2 ABG pO2 72.5 L ABG HCO3 ABG O2 Saturation 91.2 L ABG Base Excess -5.3 L ABG Hemoglobin 6.0 L ABG Oxyhemoglobin ABG Sodium ABG Potassium ABG Chloride ABG Glucose Oxyhemoglobin 89.1 L Carboxyhemoglobin Sodium Potassium Chloride 110.4 H Carbon Dioxide BUN 92 H Creatinine Glucose POC Glucose 239 H Hemoglobin A1c Lactic Acid Calcium Phosphorus Magnesium Ferritin Total Bilirubin AST ALT Lactate Dehydrogenase C-Reactive Protein Albumin Triglycerides Arterial Blood Glucose Arterial Blood Ionized Calcium Urine Creatinine Coronavirus (PCR) 02/02/21 02/02/21 02/02/21 11:53 16:00 18:04 WBC RBC Hgb Hct MCV MCH MCHC RDW Plt Count Lymph % (Auto) Lymph # (Auto) Seg Neutrophils % Seg Neuts % (Manual) Lymphocytes % (Manual) Seg Neutrophils # Seg Neutrophils # Man Lymphocytes # (Manual) Eosinophils # (Manual) D-Dimer ABG pH POC ABG pCO2 POC ABG pO2 ABG pO2 ABG HCO3 ABG O2 Saturation ABG Base Excess ABG Hemoglobin ABG Oxyhemoglobin ABG Sodium ABG Potassium ABG Chloride ABG Glucose Oxyhemoglobin Carboxyhemoglobin Sodium Potassium Chloride Carbon Dioxide BUN Creatinine Glucose POC Glucose 248 H 199 H Hemoglobin A1c 6.3 H Lactic Acid Calcium Phosphorus Magnesium Ferritin Total Bilirubin AST ALT Lactate Dehydrogenase C-Reactive Protein Albumin Triglycerides Arterial Blood Glucose Arterial Blood Ionized Calcium Urine Creatinine Coronavirus (PCR) 02/02/21 02/03/21 02/03/21 23:31 03:12 04:10 WBC RBC 3.06 L Hgb 9.7 L Hct 30.4 L MCV 99 H MCH MCHC RDW 15.3 H Plt Count Lymph % (Auto) 6.1 L Lymph # (Auto) 0.5 L Seg Neutrophils % 86.1 H Seg Neuts % (Manual) Lymphocytes % (Manual) Seg Neutrophils # Seg Neutrophils # Man Lymphocytes # (Manual) Eosinophils # (Manual) D-Dimer ABG pH 7.199 L POC ABG pCO2 48.3 H POC ABG pO2 68.3 L ABG pO2 ABG HCO3 ABG O2 Saturation ABG Base Excess ABG Hemoglobin 10.2 L ABG Oxyhemoglobin 89.2 L ABG Sodium 155.0 H ABG Potassium 4.6 H ABG Chloride 121.0 H ABG Glucose 166 H Oxyhemoglobin Carboxyhemoglobin 0.3 L Sodium Potassium Chloride Carbon Dioxide BUN Creatinine Glucose POC Glucose 200 H Hemoglobin A1c Lactic Acid Calcium Phosphorus Magnesium Ferritin Total Bilirubin AST ALT Lactate Dehydrogenase C-Reactive Protein Albumin Triglycerides Arterial Blood Glucose 166 H Arterial Blood Ionized Calcium 4.1 L Urine Creatinine Coronavirus (PCR) 02/03/21 02/03/21 02/03/21 04:10 05:34 11:51 WBC RBC Hgb Hct MCV MCH MCHC RDW Plt Count Lymph % (Auto) Lymph # (Auto) Seg Neutrophils % Seg Neuts % (Manual) Lymphocytes % (Manual) Seg Neutrophils # Seg Neutrophils # Man Lymphocytes # (Manual) Eosinophils # (Manual) D-Dimer ABG pH POC ABG pCO2 POC ABG pO2 ABG pO2 ABG HCO3 ABG O2 Saturation ABG Base Excess ABG Hemoglobin ABG Oxyhemoglobin ABG Sodium ABG Potassium ABG Chloride ABG Glucose Oxyhemoglobin Carboxyhemoglobin Sodium 154 H D Potassium Chloride 116.7 H Carbon Dioxide 20 L BUN 130 H Creatinine 9.2 H D Glucose 160 H POC Glucose 130 H 154 H Hemoglobin A1c Lactic Acid Calcium 6.7 L Phosphorus 8.60 H Magnesium Ferritin Total Bilirubin AST ALT Lactate Dehydrogenase C-Reactive Protein Albumin Triglycerides Arterial Blood Glucose Arterial Blood Ionized Calcium Urine Creatinine Coronavirus (PCR) 02/03/21 02/03/21 02/04/21 16:49 23:22 03:48 WBC RBC Hgb Hct MCV MCH MCHC RDW Plt Count Lymph % (Auto) Lymph # (Auto) Seg Neutrophils % Seg Neuts % (Manual) Lymphocytes % (Manual) Seg Neutrophils # Seg Neutrophils # Man Lymphocytes # (Manual) Eosinophils # (Manual) D-Dimer ABG pH 7.201 L POC ABG pCO2 54.5 H POC ABG pO2 74.0 L ABG pO2 ABG HCO3 ABG O2 Saturation ABG Base Excess ABG Hemoglobin 9.7 L ABG Oxyhemoglobin 91.1 L ABG Sodium 146.2 H ABG Potassium ABG Chloride 114.0 H ABG Glucose 155 H Oxyhemoglobin Carboxyhemoglobin Sodium Potassium Chloride Carbon Dioxide BUN Creatinine Glucose POC Glucose 164 H 152 H Hemoglobin A1c Lactic Acid Calcium Phosphorus Magnesium Ferritin Total Bilirubin AST ALT Lactate Dehydrogenase C-Reactive Protein Albumin Triglycerides Arterial Blood Glucose 155 H Arterial Blood Ionized Calcium 3.9 L Urine Creatinine Coronavirus (PCR) 02/04/21 02/04/21 02/04/21 04:45 04:45 04:45 WBC RBC 2.75 L Hgb 9.1 L Hct 26.9 L MCV 98 H MCH 33 H MCHC RDW Plt Count Lymph % (Auto) 6.8 L Lymph # (Auto) 0.5 L Seg Neutrophils % 87.2 H Seg Neuts % (Manual) Lymphocytes % (Manual) Seg Neutrophils # Seg Neutrophils # Man Lymphocytes # (Manual) Eosinophils # (Manual) D-Dimer ABG pH POC ABG pCO2 POC ABG pO2 ABG pO2 ABG HCO3 ABG O2 Saturation ABG Base Excess ABG Hemoglobin ABG Oxyhemoglobin ABG Sodium ABG Potassium ABG Chloride ABG Glucose Oxyhemoglobin Carboxyhemoglobin Sodium 149 H Potassium Chloride 111.5 H Carbon Dioxide BUN 99 H Creatinine 8.5 H Glucose 139 H POC Glucose Hemoglobin A1c Lactic Acid Calcium 6.8 L Phosphorus 8.40 H Magnesium Ferritin Total Bilirubin AST ALT Lactate Dehydrogenase C-Reactive Protein Albumin Triglycerides Arterial Blood Glucose Arterial Blood Ionized Calcium Urine Creatinine Coronavirus (PCR) 02/04/21 02/04/21 02/04/21 06:05 11:44 18:00 WBC RBC Hgb Hct MCV MCH MCHC RDW Plt Count Lymph % (Auto) Lymph # (Auto) Seg Neutrophils % Seg Neuts % (Manual) Lymphocytes % (Manual) Seg Neutrophils # Seg Neutrophils # Man Lymphocytes # (Manual) Eosinophils # (Manual) D-Dimer ABG pH POC ABG pCO2 POC ABG pO2 ABG pO2 ABG HCO3 ABG O2 Saturation ABG Base Excess ABG Hemoglobin ABG Oxyhemoglobin ABG Sodium ABG Potassium ABG Chloride ABG Glucose Oxyhemoglobin Carboxyhemoglobin Sodium Potassium Chloride Carbon Dioxide BUN Creatinine Glucose POC Glucose 138 H 129 H 163 H Hemoglobin A1c Lactic Acid Calcium Phosphorus Magnesium Ferritin Total Bilirubin AST ALT Lactate Dehydrogenase C-Reactive Protein Albumin Triglycerides Arterial Blood Glucose Arterial Blood Ionized Calcium Urine Creatinine Coronavirus (PCR) 02/04/21 02/05/21 02/05/21 23:48 01:50 01:50 WBC RBC 2.43 L Hgb 8.3 L Hct 23.6 L MCV 97 H MCH 34 H MCHC 35 H RDW Plt Count 137 L Lymph % (Auto) 8.4 L Lymph # (Auto) 0.6 L Seg Neutrophils % 86.1 H Seg Neuts % (Manual) Lymphocytes % (Manual) Seg Neutrophils # Seg Neutrophils # Man Lymphocytes # (Manual) Eosinophils # (Manual) D-Dimer ABG pH POC ABG pCO2 POC ABG pO2 ABG pO2 ABG HCO3 ABG O2 Saturation ABG Base Excess ABG Hemoglobin ABG Oxyhemoglobin ABG Sodium ABG Potassium ABG Chloride ABG Glucose Oxyhemoglobin Carboxyhemoglobin Sodium Potassium Chloride Carbon Dioxide BUN Creatinine Glucose POC Glucose 157 H Hemoglobin A1c Lactic Acid Calcium Phosphorus 5.60 H D Magnesium Ferritin Total Bilirubin AST ALT Lactate Dehydrogenase C-Reactive Protein Albumin Triglycerides Arterial Blood Glucose Arterial Blood Ionized Calcium Urine Creatinine Coronavirus (PCR) 02/05/21 02/05/21 02/05/21 03:44 05:27 09:15 WBC RBC Hgb Hct MCV MCH MCHC RDW Plt Count Lymph % (Auto) Lymph # (Auto) Seg Neutrophils % Seg Neuts % (Manual) Lymphocytes % (Manual) Seg Neutrophils # Seg Neutrophils # Man Lymphocytes # (Manual) Eosinophils # (Manual) D-Dimer ABG pH 7.202 L POC ABG pCO2 63.7 H POC ABG pO2 69.0 L ABG pO2 ABG HCO3 ABG O2 Saturation ABG Base Excess ABG Hemoglobin 9.4 L ABG Oxyhemoglobin ABG Sodium ABG Potassium ABG Chloride 108.0 H ABG Glucose 186 H Oxyhemoglobin Carboxyhemoglobin Sodium Potassium Chloride Carbon Dioxide BUN 78 H Creatinine 8.0 H Glucose 163 H POC Glucose 157 H Hemoglobin A1c Lactic Acid Calcium 6.3 L Phosphorus Magnesium Ferritin Total Bilirubin AST ALT Lactate Dehydrogenase C-Reactive Protein Albumin Triglycerides Arterial Blood Glucose 186 H Arterial Blood Ionized Calcium 3.9 L Urine Creatinine Coronavirus (PCR) 02/05/21 02/05/21 02/05/21 11:47 17:39 23:40 WBC RBC Hgb Hct MCV MCH MCHC RDW Plt Count Lymph % (Auto) Lymph # (Auto) Seg Neutrophils % Seg Neuts % (Manual) Lymphocytes % (Manual) Seg Neutrophils # Seg Neutrophils # Man Lymphocytes # (Manual) Eosinophils # (Manual) D-Dimer ABG pH 7.273 L POC ABG pCO2 62.1 H POC ABG pO2 72.0 L ABG pO2 ABG HCO3 ABG O2 Saturation ABG Base Excess ABG Hemoglobin 9.1 L ABG Oxyhemoglobin 91.3 L ABG Sodium ABG Potassium 3.1 L ABG Chloride ABG Glucose 125 H Oxyhemoglobin Carboxyhemoglobin Sodium Potassium Chloride Carbon Dioxide BUN Creatinine Glucose POC Glucose 126 H 126 H Hemoglobin A1c Lactic Acid Calcium Phosphorus Magnesium Ferritin Total Bilirubin AST ALT Lactate Dehydrogenase C-Reactive Protein Albumin Triglycerides Arterial Blood Glucose 125 H Arterial Blood Ionized Calcium 4.0 L Urine Creatinine Coronavirus (PCR) 02/06/21 02/06/21 02/06/21 04:30 04:57 09:45 WBC RBC Hgb Hct MCV MCH MCHC RDW Plt Count Lymph % (Auto) Lymph # (Auto) Seg Neutrophils % Seg Neuts % (Manual) Lymphocytes % (Manual) Seg Neutrophils # Seg Neutrophils # Man Lymphocytes # (Manual) Eosinophils # (Manual) D-Dimer ABG pH 7.159 L 7.138 L* POC ABG pCO2 76.3 H POC ABG pO2 66.9 L ABG pO2 ABG HCO3 ABG O2 Saturation 93.4 L ABG Base Excess -6.0 L ABG Hemoglobin 11.2 L 11.7 L ABG Oxyhemoglobin 88.2 L ABG Sodium ABG Potassium ABG Chloride ABG Glucose 134 H Oxyhemoglobin 91.2 L Carboxyhemoglobin Sodium Potassium Chloride Carbon Dioxide BUN Creatinine Glucose POC Glucose 124 H Hemoglobin A1c Lactic Acid Calcium Phosphorus Magnesium Ferritin Total Bilirubin AST ALT Lactate Dehydrogenase C-Reactive Protein Albumin Triglycerides Arterial Blood Glucose 134 H Arterial Blood Ionized Calcium 3.9 L Urine Creatinine Coronavirus (PCR) 0402/06/21 02/06/21 11:11 17:00 17:00 WBC RBC Hgb Hct MCV MCH MCHC RDW Plt Count Lymph % (Auto) Lymph # (Auto) Seg Neutrophils % Seg Neuts % (Manual) Lymphocytes % (Manual) Seg Neutrophils # Seg Neutrophils # Man Lymphocytes # (Manual) Eosinophils # (Manual) D-Dimer ABG pH 7.158 L* POC ABG pCO2 POC ABG pO2 ABG pO2 109.8 H ABG HCO3 28.7 H ABG O2 Saturation ABG Base Excess -2.5 L ABG Hemoglobin ABG Oxyhemoglobin ABG Sodium ABG Potassium ABG Chloride ABG Glucose Oxyhemoglobin 94.5 L Carboxyhemoglobin Sodium Potassium Chloride Carbon Dioxide BUN Creatinine Glucose POC Glucose 120 H Hemoglobin A1c Lactic Acid Calcium Phosphorus Magnesium Ferritin Total Bilirubin AST ALT Lactate Dehydrogenase C-Reactive Protein Albumin Triglycerides 503 H Arterial Blood Glucose Arterial Blood Ionized Calcium Urine Creatinine Coronavirus (PCR) 02/06/21 02/06/21 02/06/21 17:28 20:16 Unknown WBC 13.5 H RBC 2.98 L Hgb 9.3 L Hct 28.6 L MCV 96 H MCH MCHC RDW Plt Count Lymph % (Auto) Lymph # (Auto) Seg Neutrophils % Seg Neuts % (Manual) 87.0 H Lymphocytes % (Manual) 7.0 L Seg Neutrophils # Seg Neutrophils # Man 11.7 H Lymphocytes # (Manual) 0.9 L Eosinophils # (Manual) 0.5 H D-Dimer ABG pH POC ABG pCO2 POC ABG pO2 ABG pO2 ABG HCO3 ABG O2 Saturation ABG Base Excess ABG Hemoglobin ABG Oxyhemoglobin ABG Sodium ABG Potassium ABG Chloride ABG Glucose Oxyhemoglobin Carboxyhemoglobin Sodium Potassium Chloride Carbon Dioxide BUN Creatinine Glucose POC Glucose 147 H 164 H Hemoglobin A1c Lactic Acid Calcium Phosphorus Magnesium Ferritin Total Bilirubin AST ALT Lactate Dehydrogenase C-Reactive Protein Albumin Triglycerides Arterial Blood Glucose Arterial Blood Ionized Calcium Urine Creatinine Coronavirus (PCR) 02/06/21 02/07/21 02/07/21 Unknown 01:21 04:00 WBC 12.0 H RBC 2.61 L Hgb 8.2 L Hct 24.5 L MCV MCH MCHC RDW Plt Count Lymph % (Auto) 8.9 L Lymph # (Auto) 1.1 L Seg Neutrophils % 86.3 H Seg Neuts % (Manual) Lymphocytes % (Manual) Seg Neutrophils # 10.3 H Seg Neutrophils # Man Lymphocytes # (Manual) Eosinophils # (Manual) D-Dimer ABG pH POC ABG pCO2 POC ABG pO2 ABG pO2 ABG HCO3 ABG O2 Saturation ABG Base Excess ABG Hemoglobin ABG Oxyhemoglobin ABG Sodium ABG Potassium ABG Chloride ABG Glucose Oxyhemoglobin Carboxyhemoglobin Sodium Potassium 3.5 L Chloride Carbon Dioxide BUN 58 H Creatinine 6.6 H Glucose 107 H POC Glucose 173 H Hemoglobin A1c Lactic Acid Calcium 6.7 L Phosphorus 8.00 H D Magnesium Ferritin Total Bilirubin AST ALT Lactate Dehydrogenase C-Reactive Protein Albumin Triglycerides Arterial Blood Glucose Arterial Blood Ionized Calcium Urine Creatinine Coronavirus (PCR) 02/07/21 04:00 WBC RBC Hgb Hct MCV MCH MCHC RDW Plt Count Lymph % (Auto) Lymph # (Auto) Seg Neutrophils % Seg Neuts % (Manual) Lymphocytes % (Manual) Seg Neutrophils # Seg Neutrophils # Man Lymphocytes # (Manual) Eosinophils # (Manual) D-Dimer ABG pH POC ABG pCO2 POC ABG pO2 ABG pO2 ABG HCO3 ABG O2 Saturation ABG Base Excess ABG Hemoglobin ABG Oxyhemoglobin ABG Sodium ABG Potassium ABG Chloride ABG Glucose Oxyhemoglobin Carboxyhemoglobin Sodium Potassium Chloride Carbon Dioxide BUN Creatinine Glucose POC Glucose Hemoglobin A1c Lactic Acid Calcium Phosphorus 5.50 H D Magnesium Ferritin Total Bilirubin AST ALT Lactate Dehydrogenase C-Reactive Protein Albumin Triglycerides Arterial Blood Glucose Arterial Blood Ionized Calcium Urine Creatinine Coronavirus (PCR)
--- NOTE | 2021-02-07 11:31 | Progress Note ---
Assessment and Plan Acute Hypoxic respiratory failure COVID-19 PNA Severe sepsis with septic shock Acute kidney injury secondary to ATN Hyperkalemia Hypernatremia DM2 on insulin Plan: HD today Assess need for HD on daily basis Initiated on HD on 02/03/21 s/p Right IJ Trialysis dialysis catheter placement by Dr Reddy On free water flushes to 400 ml Strict I&O Renally dose meds Subjective Date of service: 02/07/21 Principal diagnosis: DEISI Interval history: HD today. Objective - Exam Narrative Exam: GE:Intubated HEENT:Limited due to Covid Neck:Limited due to Covid Chest:On Vent CVS:Limited due to Covid Abd:Limited due to Covid Neuro:Sedated - Vital Signs Vital signs: Vital Signs - 12hr 02/07/21 02/07/21 02/07/21 00:00 00:20 01:00 Temperature 99.2 F Pulse Rate 105 H 105 H 101 H Pulse Rate [ 117 H From Monitor] Respiratory 26 H 26 H Rate Blood Pressure 123/62 132/60 119/57 O2 Sat by Pulse 98 98 98 Oximetry O2 Sat by Pulse Oximetry [ Anterior Bilateral Throughout] 02/07/21 02/07/21 02/07/21 02:01 03:00 04:00 Temperature 100.9 F H Pulse Rate 105 H 109 H 110 H Pulse Rate [ 117 H From Monitor] Respiratory 24 29 H 27 H Rate Blood Pressure 152/74 143/63 131/66 O2 Sat by Pulse 96 96 96 Oximetry O2 Sat by Pulse Oximetry [ Anterior Bilateral Throughout] 02/07/21 02/07/21 02/07/21 05:00 05:12 06:01 Temperature Pulse Rate 111 H 109 H 111 H Pulse Rate [ From Monitor] Respiratory 28 H 30 H Rate Blood Pressure 145/68 132/69 130/61 O2 Sat by Pulse 96 96 98 Oximetry O2 Sat by Pulse Oximetry [ Anterior Bilateral Throughout] 02/07/21 02/07/21 02/07/21 07:00 07:15 07:30 Temperature Pulse Rate 97 H 95 H 95 H Pulse Rate [ From Monitor] Respiratory 34 H 34 H 34 H Rate Blood Pressure 101/52 98/47 112/57 O2 Sat by Pulse 96 97 97 Oximetry O2 Sat by Pulse Oximetry [ Anterior Bilateral Throughout] 02/07/21 02/07/21 02/07/21 07:45 07:49 07:55 Temperature 100.5 F H Pulse Rate 93 H 91 H Pulse Rate [ From Monitor] Respiratory 34 H Rate Blood Pressure 112/57 112/57 O2 Sat by Pulse 97 97 Oximetry O2 Sat by Pulse Oximetry [ Anterior Bilateral Throughout] 02/07/21 02/07/21 02/07/21 08:00 08:15 08:31 Temperature Pulse Rate 95 H 91 H 89 Pulse Rate [ From Monitor] Respiratory 34 H 34 H 34 H Rate Blood Pressure 112/63 121/55 115/52 O2 Sat by Pulse 98 96 97 Oximetry O2 Sat by Pulse Oximetry [ Anterior Bilateral Throughout] 02/07/21 02/07/21 02/07/21 08:45 09:00 09:15 Temperature Pulse Rate 87 87 90 Pulse Rate [ From Monitor] Respiratory 34 H 34 H 34 H Rate Blood Pressure 107/50 109/54 120/56 O2 Sat by Pulse 97 96 97 Oximetry O2 Sat by Pulse Oximetry [ Anterior Bilateral Throughout] 02/07/21 02/07/21 02/07/21 09:30 09:45 09:58 Temperature 98.5 F Pulse Rate 86 83 84 Pulse Rate [ From Monitor] Respiratory 34 H 34 H Rate Blood Pressure 103/51 97/48 88/42 O2 Sat by Pulse 98 99 Oximetry O2 Sat by Pulse 98 Oximetry [ Anterior Bilateral Throughout] 02/07/21 02/07/21 02/07/21 10:00 10:15 10:30 Temperature Pulse Rate 84 81 79 Pulse Rate [ From Monitor] Respiratory 34 H 34 H 34 H Rate Blood Pressure 84/44 114/58 118/58 O2 Sat by Pulse 98 99 99 Oximetry O2 Sat by Pulse Oximetry [ Anterior Bilateral Throughout] 02/07/21 02/07/21 02/07/21 10:45 11:00 11:15 Temperature Pulse Rate 79 80 80 Pulse Rate [ From Monitor] Respiratory 34 H 34 H Rate Blood Pressure 103/58 115/58 115/60 O2 Sat by Pulse 99 99 Oximetry O2 Sat by Pulse Oximetry [ Anterior Bilateral Throughout] 02/07/21 11:17 Temperature Pulse Rate 80 Pulse Rate [ From Monitor] Respiratory Rate Blood Pressure 115/60 O2 Sat by Pulse 99 Oximetry O2 Sat by Pulse Oximetry [ Anterior Bilateral Throughout] - Lab 02/08/21 06:00 02/08/21 06:00 Most recent lab results ABG pH 7.158 pH Units (7.350-7.450) L* 02/06/21 17:00 ABG pCO2 82.8 mm Hg 02/06/21 17:00 ABG pO2 109.8 mm Hg (80.0-90.0) H 02/06/21 17:00 ABG HCO3 28.7 mmol/L (20.0-26.0) H 02/06/21 17:00 ABG O2 Saturation 96.6 % (95.0-99.0) 02/06/21 17:00 Calcium 6.7 mg/dL (8.4-10.2) L 02/06/21 Unknown Phosphorus 5.50 mg/dL (2.5-4.5) H D 02/07/21 04:00 Magnesium 2.20 mg/dL (1.7-2.3) 02/04/21 04:45 Urine Creatinine 53.0 mg/dL (0.1-20.0) H 01/30/21 12:00 Urine Sodium 28 mmol/L 01/22/21 22:39 Medications & Allergies - Medications Allergies/Adverse Reactions: Allergies No Known Allergies Allergy (Unverified 03/12/20 13:41) Home Medications: Home Medications Medication Instructions Recorded Confirmed Last Taken Type Clindamycin [Clindamycin CAP] 300 mg PO Q8H #21 cap 03/12/20 Unknown Rx Insulin NPH/Regular [Novolin 70/30] 18 unit SUB-Q TIDAC #1 vial 03/12/20 Unknown Rx Syringe-Needle,Insulin,0.5 ml 1 box MC TID #1 box 03/12/20 Unknown Rx [Insulin Syringe/Needle 0.5 ML] Active Medications: Generic Name Dose Route Start Last Admin Trade Name Freq PRN Reason Stop Dose Admin Acetaminophen 650 mg 01/23/21 02:25 Acetaminophen 650 Mg Rect Supp UT Q4H PRN Pain, Mild (1-3) Acetaminophen 650 mg 01/24/21 12:58 02/07/21 04:10 Acetaminophen 325 Mg/10.15 Ml Oral Liqd Unit Dose FEEDTUBE 650 mg Q6H PRN Administration Pain, Mild (1-3) Lipase/Protease/Amylase 1 each 01/26/21 14:25 Lipase 10,500/Protease 25,000/Amylase 43,750 (Units) Dr Claudio FEEDTUBE PRN PRN For Clogged Feeding Tube Dextrose 50 ml 01/27/21 07:24 Dextrose 50% In Water (25gm) 50 Ml Syringe IV Q30MIN PRN Hypoglycemia Protocol Enoxaparin Sodium 120 mg 01/26/21 11:00 02/07/21 09:23 Enoxaparin 120 Mg/0.8 Ml Inj SUB-Q 120 mg Q24HR CECE Administration Famotidine 20 mg 01/24/21 10:00 02/07/21 09:21 Famotidine 20 Mg/2 Ml Inj IV 20 mg DAILY CECE Administration Fentanyl 50 mcg 01/22/21 22:39 Fentanyl 100 Mcg/2 Ml Inj IV Q10MIN PRN ANALGESIA Hydrophilic Ointment 1 applic 01/22/21 22:39 Lip Therapy Vaseline TP Q2HR PRN Dry Lips Fentanyl Citrate 2,000 mcg in 100 mls @ 6.124 mls/hr 01/22/21 23:00 02/07/21 10:35 Fentanyl Drip Premix IV 4 mcg/kg/hr TITR CECE 24.494 mls/hr Administration Protocol 1 MCG/KG/HR Propofol 1,000 mg in 100 mls @ 3.674 mls/hr 01/22/21 23:45 02/06/21 18:37 Diprivan 10 Mg/Ml IV 0 mcg/kg/min TITR CECE 0 mls/hr Titration Protocol 5 MCG/KG/MIN Norepinephrine 4 mg in 250 mls @ 7.5 mls/hr 01/28/21 14:00 02/07/21 10:30 Levophed Drip 4 Mg/Ns 250 Ml IV 8 mcg/min TITR CECE 30 mls/hr Titration Protocol 2 MCG/MIN Dexmedetomidine HCl 1,000 mcg/ 260 mls @ 6.368 mls/hr 01/30/21 20:00 02/07/21 08:15 Sodium Chloride IV 1.4 mcg/kg/hr TITRATE CECE 44.579 mls/hr Administration Protocol 0.2 MCG/KG/HR Sodium Bicarbonate 150 meq/ 1,150 mls @ 200 mls/hr 02/06/21 11:30 02/07/21 08:38 Dextrose IV 200 mls/hr DIRECT CECE Administration Cefepime HCl 2 gm in 100 mls @ 200 mls/hr 02/06/21 22:00 02/06/21 21:07 Cefepime/Ns 2 Gm/100 Ml IV 02/08/21 22:29 200 mls/hr QHS CECE Administration Sodium Chloride 100 mls @ 999 mls/hr 02/06/21 13:30 Nacl 0.9% IV [place] PRN Hypotension Lorazepam 100 mg/ Sodium 100 mls @ 1 mls/hr 02/06/21 19:00 02/07/21 03:40 Chloride/ Miscellaneous IV 1 mg/hr Information TITR CECE 1 mls/hr Administration Protocol 1 MG/HR Multi-Ingred Cream/Lotion/Oil/Oint 1 applic 01/22/21 22:39 02/01/21 09:33 Mineral Oil/Petrolatum, White Ophth Oint 3.5 Gm OU 1 applic Q4HR PRN Administration Dry Eye(s) Ondansetron HCl 4 mg 01/23/21 02:17 Ondansetron 4 Mg/2 Ml Inj IV Q8H PRN Nausea And Vomiting Simple Syrup 15 ml 01/26/21 14:25 Simple Syrup 15 Ml FEEDTUBE PRN PRN Hypoglycemia Simple Syrup 30 ml 01/26/21 14:25 Simple Syrup 15 Ml FEEDTUBE PRN PRN Hypoglycemia Sodium Bicarbonate 325 mg 01/26/21 14:25 Sodium Bicarbonate 325 Mg Tab FEEDTUBE PRN PRN For Clogged Feeding Tube
--- NOTE | 2021-02-07 14:06 | XRay Report ---
CHEST 1 VIEW 1342 INDICATION / CLINICAL INFORMATION: Intubated, check volume status COMPARISON: 02/04/2021 FINDINGS: SUPPORT DEVICES: Stable HEART / MEDIASTINUM: Stable LUNGS / PLEURA: Congestive changes and moderate edema appear mildly improved. Focal infiltrate contin ues in the right mid lower lung field. No pneumothorax. ADDITIONAL FINDINGS: No significant additional findings. Signer Name: Marcos Sheikh MD Signed: 02/07/2021 2:02 PM Workstation Name: [id number]
[2021-02-07 14:18] LABS: Calcium 6.9 mg/dL (8.4-10.2)
[2021-02-07] MEDS: NORepinephrine/NS 4 MG-250 ML 4 MG/250 ML BAG IV SCH (14:32)
[2021-02-07] MEDS: CEFEPIME/NS 2 GM/100 ML 2 GM/100 ML BAG IV SCH (21:31)
[2021-02-07] MEDS ORDERED: VANCOMYCIN/NS 1 GM/250 ML 1 GM/250 ML BAG IV ONE (22:00)
[2021-02-08] MEDS: SODIUM BICARBONATE 150 MEQ in DEXTROSE 5% IN WATER 1,000 ML IV SCH ×3 (04:26→17:38)
[2021-02-08] MEDS: fentaNYL DRIP Premix 2,000 MCG/100 ML BAG IV SCH ×5 (04:26→23:59)
[2021-02-08] MEDS: NORepinephrine/NS 4 MG-250 ML 4 MG/250 ML BAG IV SCH (04:59)
[2021-02-08] MEDS: dexmedeTOMIDine 1,000 MCG in SODIUM CHLORIDE 0.9% 250ML 250 ML IV SCH ×3 (04:59→17:38)
[2021-02-08 06:35] LABS: Hemoglobin 7.2 gm/dl (11.8-15.2); Mean Corpuscular HGB Conc 34 % (32-34); Mean Corpuscular Volume 95 fl (84-94); Platelet Count 165 K/mm3 (140-440); Red Blood Count 2.21 M/mm3 (3.65-5.03); Red Cell Distribution Width 13.6 % (13.2-15.2)
[2021-02-08 06:55] LABS: Calcium 6.3 mg/dL (8.4-10.2)
[2021-02-08] MEDS ORDERED: POTASSIUM CHLORIDE 20 MEQ PACKET FEEDTUBE ONE ×2 (08:26→21:11)
[2021-02-08] MEDS: ENOXAPARIN 120 MG/0.8 ML INJ SUB-Q SCH (09:08)
[2021-02-08] MEDS: FAMOTIDINE 20 MG/2 ML INJ IV SCH (09:08)
[2021-02-08] MEDS: POTASSIUM CHLORIDE 20 MEQ 20 MEQ/100 ML BAG IV SCH ×3 (09:09→10:36)
--- NOTE | 2021-02-08 09:37 | Progress Note ---
Assessment and Plan Assessment and plan: Sepsis -Presented with low-grade fever, tachycardia, tachypnea, acute respiratory failure, pneumonia on CXR and possible acute kidney injury -Antibiotic therapy -Infectious disease consulted, appreciate recommendations -01/22 blood cultures x2 pending COVID-19 PUI -01/22 COVID-19 PCR pending -Contact/droplet precautions -Antibiotics, steroid -Infectious disease consulted Acute hypoxic respiratory failure -CCM consulted, appreciate recommendations -Wean mechanical ventilation as tolerated -Pulmonary hygiene -SPO2 monitoring -VAP bundle Bilateral pneumonia -Evidenced by CXR -Antibiotic therapy Acute kidney injury -Likely secondary to VMO -02/2020 CR/BUN 1.12/24 -Avoid nephrotoxic medications, renally dose medications -Nephrology consulted, appreciate recommendations -Strict intake and output -Renal ultrasound pending Hyponatremia -Presented with a sodium of 129 -Trend BMP -MIVF Hypochloremia -MIVF -Trend BMP Diabetes mellitus -Hemoglobin A1c pending -SSI -CC diet when appropriate Hypertension -Resume home antihypertensive regimen when appropriate -Blood pressure monitor per protocol Hyperlipidemia -Resume home statin therapy when appropriate DVT/GI prophylaxis: SCDs to bilateral lower extremities while in bed, heparin subcu, PPI Dispo: ICU History Interval history: This is a 60-year-old male with diabetes mellitus, hypertension, hyperlipidemia, chronic renal insufficiency presents to the emergency department on 01/23 with shortness of breath, fevers chills, loss of smell and taste and body aches for the past 3 days via EMS. Per EMS patient's oxygen saturation on room air was 50% and after being placed on nonrebreather it increased 75%. Upon arrival to the emergency department patient was being bagged by EMS. In the emergency room patient was intubated due to severe hypoxia, increased work of breathing and lethargy. Patient was sedated on propofol and fentanyl. Patient presented with fever, tachycardia, tachypnea and acute hypoxic respiratory failure with PNA on CXR meeting Sepsis criteria. Lab work in the emergency department revealed hyponatremia, hypokalemia, hypochloremia, elevated CR/BUN and CXR showed bilateral pneumonia. Patient was admitted to the hospital service as a COVID-19 PUI with consults to infectious disease, nephrology and critical care medicine. Sepsis COVID-19 PUI Bilateral pneumonia Acute hypoxic respiratory failure Acute kidney injury Hyponatremia Hypokalemia Hypochloremia Diabetes mellitus Hypertension Hyperlipidemia Hyperlipidemia Chronic renal insufficiency 01/24/2021 -Patient is intubated and sedated, patient is positive for COVID-19 infection. ID was consulted and put on dexamethasone and remdesivir. Patient has DEISI and nephrology is following. Creatinine stable, patient is urinating. Discussed with nephrology and he is okay with remdesivir. Pulmonary critical care is f ollowing for his vent setting. PEEP of 8 and FiO2 of 85%. Patient was alert and off sedatives. 01/25/2021; patient is intubated and on mechanical ventilation. Continue with treatment of Covid. Nephrology and ID is following. Pulmonary is following for vent management. 01/29: Patient was started on Nimbex yesterday and his ABG this morning showed respiratory acidosis with hypercapnia and his respiratory rate was increased. We will obtain a repeat ABG this afternoon. This morning patient is hypernatremic, hyperkalemic and hyperchloremic. His potassium has been corrected with the management and will obtain repeat BMP tomorrow. His kidney functions have remained stable and we will await nephrology's input. No acute events reported overnight. This morning the time my examination patient sedated with propofol, Precedex and fentanyl and paralyzed with Nimbex. He is on assist control 500/24/16 0.80. 01/30: This morning patient is hypokalemic again and was given Kayexalate. Patient has hypernatremia and hyper chloremia and his renal function is slightly worse after receiving Lasix yesterday. His D-dimer remains greater than 10,000 and he is still on a paralytic. Patient is sedated on Precedex, fentanyl, propofol. Mechanical ventilation settings seven-point /61/28. [facility] has decided to continue paralytics for 48 more hours and will attempt proning the patient. Increased free water flushes 300 cc every 4 hours. Patient states has restarted his antibiotics cefepime and vancomycin and recultured. 01/31/21 Hyperkalemia, Treated 02/01/21 Hyperkalemia, Treated 02/02: Patient's kidney function continues to worsen and a stat BMP this morning shows BUN/creatinine 20/6.1 and he remains hypocalcemic and hypernatremic, hypokalemic and hypochloremic. Patient received 2 g of calcium gluconate and Kayexalate and his repeat potassium was 4.3 this afternoon. He remains antibioti c therapy and steroids. Nephrology has placed the patient on bicarb drip given metabolic acidosis and has decided to hold off hemodialysis till tomorrow.The time my examination patient is sedated on fentanyl, Precedex and on assist control 500/20/12/0.70. s/p paralytic. 02/03: Today patient's ABG shows respiratory acidosis however it is improving, hypernatremia, hyperchloremia, metabolic acidosis on BMP, worsening kidney function BUN/creatinine 130/9.2 with hyperphosphatemia. Patient received a Vas- Cath to his right IJ for initiation of dialysis. At the time of my examination patient remains sedated on fentanyl, propofol and Precedex with vasopressor support with Levophed at 2. 02/04: At the time of examination patient was on assist control tidal volume 500, rate 40, PEEP of 12, FiO2 85%. Patient had a T-max of 100.9 and infectious disease has stopped his vancomycin given negative MRSA. This afternoon patient respiked his temperature and was pancultured again. Patient was started on hemodialysis yesterday and will receive HD again today. Patient is sedated on Precedex, propofol, fentanyl and remains on Levophed. He is on assist control tidal volume 500, rate of 30, PEEP of 12, FiO2 of 85%. Patient still has some respiratory acidosis however his hypernatremia and hyperchloremia have improved and his metabolic acidosis has resolved. Patient will receive hemodialysis today 02/05: Patient continues to have low-grade fever temp this morning time examination he was on assist control tidal volume 500, and sedated on propofol/fentanyl/Precedex and is on Levophed. Hemodialysis per nephrology. Antibiotics per ID. Patient's blood culture from 02/04 grew gram-positive cocci in clusters in 1/2 bottles and he was started on vancomycin. 02/06: Patients ABG showed respiratory acidosis and the tracings were changed however a repeat ABG showed showed acidosis.[facility] will start a bicarb drip after giving 2 amps of bicarb push. Yesterday patient blood cultures grew gram- positive cocci and he was started on vancomycin. At the time my examination patient was on assist control tidal volume 550, rate 34, PEEP 16, FiO2 90% and sedated on fentanyl, Precedex, propofol elevated pressure support with Levophed. Bilateral lower extremity Doppler ultrasounds done yesterday showed no evidence of DVT/SVT. 02/07/2021; patient is still on the vent with PEEP of 16 and FiO2 of 90%, sedated with fentanyl Precedex and propofol. Patient still requiring Levophed. Patient was sedated yesterday and was given bicarb push. Blood culture grew gram- positive cocci in clusters and he is on vancomycin, will follow identification. 02/08/2021;patient is still on the vent with PEEP of 16 and FiO2 of 90%, sedated with fentanyl Precedex and propofol. Patient still requiring Levophed. Patient was sedated yesterday and was given bicarb push. Blood culture grew gram- positive cocci in clusters and he is on vancomycin, will follow identification. Patient is currently on dialysis. Patient is anemic transfuse if hemoglobin is below 7. The high probability of a clinically significant, sudden or life threatening deterioration of the [respiratory] system(s) required my full and direct attenti on, intervention and personal management. The aggregate critical care time was [32] minutes. This time is in addition to time spent performing reported procedures but includes the following: [x] Data Review and interpretation [x] Patient assessment and monitoring of vital signs [x] Documentation [x] Medication orders and management History Interval history: Patient was seen and evaluated this morning Patient was intubated and sedated Patient is still on pressors Hospitalist Physical - Physical exam Narrative exam: Patient was intubated and on mechanical ventilator The patient appeared well nourished and normally developed. Vital signs as documented. Head exam is unremarkable. No scleral icterus . Neck is without jugular venous distension, thyromegaly, or carotid bruits. Lungs are decreased air entry. Cardiac exam reveals regular rate and Rhythm. Abdominal exam reveals normal bowel sounds, nontender, no organomegaly. Extremities are nonedematous and both femoral and pedal pulses are normal. MORTGAGE ADVISOR: Patient is sedated - Constitutional Vitals: Temp Pulse Resp BP Pulse Ox 100.3 F H 100 H 32 H 117/62 94 02/08/21 08:00 02/08/21 09:15 02/08/21 09:15 02/08/21 09:15 02/08/21 09:15 General appearance: Present: no acute distress, well-nourished, other (Sedated on mechanical ventilation) HEART Score - HEART Score Risk factors: 1-2 risk factors Troponin: < normal limit - Critical Actions Critical Actions: 0-3 pts:0.9-1.7%risk of adverse cardiac event.Candidate for discharge Results - Labs CBC & Chem 7: 02/08/21 06:00 02/08/21 06:00 Labs: Laboratory Last Values WBC 9.8 K/mm3 (4.5-11.0) 02/08/21 06:00 RBC 2.21 M/mm3 (3.65-5.03) L 02/08/21 06:00 Hgb 7.2 gm/dl (11.8-15.2) L 02/08/21 06:00 Hct 21.0 % (35.5-45.6) L 02/08/21 06:00 MCV 95 fl (84-94) H 02/08/21 06:00 MCH 32 pg (28-32) 02/08/21 06:00 MCHC 34 % (32-34) 02/08/21 06:00 RDW 13.6 % (13.2-15.2) 02/08/21 06:00 Plt Count 165 K/mm3 (140-440) 02/08/21 06:00 Lymph % (Auto) 8.9 % (13.4-35.0) L 02/07/21 04:00 Ashley % (Auto) 3.1 % (0.0-7.3) 02/07/21 04:00 Eos % (Auto) 0.9 % (0.0-4.3) 02/07/21 04:00 Baso % (Auto) 0.8 % (0.0-1.8) 02/07/21 04:00 Lymph # (Auto) 1.1 K/mm3 (1.2-5.4) L 02/07/21 04:00 Ashley # (Auto) 0.4 K/mm3 (0.0-0.8) 02/07/21 04:00 Eos # (Auto) 0.1 K/mm3 (0.0-0.4) 02/07/21 04:00 Baso # (Auto) 0.1 K/mm3 (0.0-0.1) 02/07/21 04:00 Add Manual Diff Complete 02/06/21 Unknown Total Counted 100 02/06/21 Unknown Seg Neutrophils % 86.3 % (40.0-70.0) H 02/07/21 04:00 Seg Neuts % (Manual) 87.0 % (40.0-70.0) H 02/06/21 Unknown Band Neutrophils % 1.0 % 02/06/21 Unknown Lymphocytes % (Manual) 7.0 % (13.4-35.0) L 02/06/21 Unknown Reactive Lymphs % (Man) 1.0 % 01/27/21 05:29 Monocytes % (Manual) 2.0 % (0.0-7.3) 01/30/21 05:00 Eosinophils % (Manual) 4.0 % (0.0-4.3) 02/06/21 Unknown Basophils % (Manual) 1.0 % (0.0-1.8) 02/06/21 Unknown Nucleated RBC % Not Reportable 02/06/21 Unknown Seg Neutrophils # 10.3 K/mm3 (1.8-7.7) H 02/07/21 04:00 Seg Neutrophils # Man 11.7 K/mm3 (1.8-7.7) H 02/06/21 Unknown Band Neutrophils # 0.1 K/mm3 02/06/21 Unknown Lymphocytes # (Manual) 0.9 K/mm3 (1.2-5.4) L 02/06/21 Unknown Abs React Lymphs (Man) 0.0 K/mm3 02/06/21 Unknown Monocytes # (Manual) 0.0 K/mm3 (0.0-0.8) 02/06/21 Unknown Eosinophils # (Manual) 0.5 K/mm3 (0.0-0.4) H 02/06/21 Unknown Basophils # (Manual) 0.1 K/mm3 (0.0-0.1) 02/06/21 Unknown Metamyelocytes # 0.0 K/mm3 02/06/21 Unknown Myelocytes # 0.0 K/mm3 02/06/21 Unknown Promyelocytes # 0.0 K/mm3 02/06/21 Unknown Blast Cells # 0.0 K/mm3 02/06/21 Unknown WBC Morphology Not Reportable 02/06/21 Unknown Hypersegmented Neuts Not Reportable 02/06/21 Unknown Hyposegmented Neuts Not Reportable 02/06/21 Unknown Hypogranular Neuts Not Reportable 02/06/21 Unknown Smudge Cells Not Reportable 02/06/21 Unknown Toxic Granulation Not Reportable 02/06/21 Unknown Toxic Vacuolation Not Reportable 02/06/21 Unknown Dohle Bodies Not Reportable 02/06/21 Unknown Pelger-Huet Anomaly Not Reportable 02/06/21 Unknown Fátima Rods Not Reportable 02/06/21 Unknown Platelet Estimate Consistent w auto 02/06/21 Unknown Clumped Platelets Not Reportable 02/06/21 Unknown Plt Clumps, EDTA Not Reportable 02/06/21 Unknown Large Platelets Not Reportable 02/06/21 Unknown Giant Platelets Not Reportable 02/06/21 Unknown Platelet Satelliting Not Reportable 02/06/21 Unknown Plt Morphology Comment Not Reportable 02/06/21 Unknown RBC Morphology Normal 02/06/21 Unknown Dimorphic RBCs Not Reportable 02/06/21 Unknown Polychromasia Not Reportable 02/06/21 Unknown Hypochromasia Not Reportable 02/06/21 Unknown Poikilocytosis Not Reportable 02/06/21 Unknown Anisocytosis Not Reportable 02/06/21 Unknown Microcytosis Not Reportable 02/06/21 Unknown Macrocytosis Not Reportable 02/06/21 Unknown Spherocytes Not Reportable 02/06/21 Unknown Pappenheimer Bodies Not Reportable 02/06/21 Unknown Sickle Cells Not Reportable 02/06/21 Unknown Target Cells Not Reportable 02/06/21 Unknown Tear Drop Cells Not Reportable 02/06/21 Unknown Ovalocytes Not Reportable 02/06/21 Unknown Helmet Cells Not Reportable 02/06/21 Unknown Potter-Stoddard Bodies Not Reportable 02/06/21 Unknown Emeigh Rings Not Reportable 02/06/21 Unknown Ludmila Cells Not Reportable 02/06/21 Unknown Bite Cells Not Reportable 02/06/21 Unknown Crenated Cell Not Reportable 02/06/21 Unknown Elliptocytes Not Reportable 02/06/21 Unknown Acanthocytes (Spur) Not Reportable 02/06/21 Unknown Rouleaux Not Reportable 02/06/21 Unknown Hemoglobin C Crystals Not Reportable 02/06/21 Unknown Schistocytes Not Reportable 02/06/21 Unknown Malaria parasites Not Reportable 02/06/21 Unknown Aquiles Bodies Not Reportable 02/06/21 Unknown Hem Pathologist Commnt No 02/06/21 Unknown D-Dimer > 95521 ng/mlDDU (0-234) H 01/30/21 04:00 ABG pH 7.372 (7.320-7.450) 02/08/21 23:58 POC ABG pCO2 63.3 mmHg (32.0-48.0) H 02/08/21 23:58 ABG pCO2 82.8 mm Hg 02/06/21 17:00 POC ABG pO2 71.2 mmHg (83-108) L 02/08/21 23:58 ABG pO2 109.8 mm Hg (80.0-90.0) H 02/06/21 17:00 POC ABG HCO3 35.9 02/08/21 23:58 ABG HCO3 28.7 mmol/L (20.0-26.0) H 02/06/21 17:00 ABG O2 Saturation 93.1 (0-100) 02/08/21 23:58 ABG O2 Content 20.1 (0.0-44) 02/06/21 17:00 POC ABG Base Excess 9.4 02/08/21 23:58 ABG Base Excess -2.5 mmol/L (-2.0-3.0) L 02/06/21 17:00 ABG Hemoglobin 8.2 (12.0-17.5) L 02/08/21 23:58 ABG Oxyhemoglobin 91.8 (94-98) L 02/08/21 23:58 ABG Carboxyhemoglobin 1.5 % (0.0-5.0) 02/06/21 17:00 ABG Methemoglobin 0.3 (0.0-1.5) 02/08/21 23:58 ABG Sodium 134.6 mmol/L (136.0-145.0) L 02/08/21 23:58 ABG Potassium 2.3 mmol/L (3.40-4.50) L 02/08/21 23:58 ABG Chloride 96.0 mmol/L (98-107) L 02/08/21 23:58 ABG Glucose 184 mg/dL (65-95) H 02/08/21 23:58 Oxyhemoglobin 94.5 % (95.0-99.0) L 02/06/21 17:00 Carboxyhemoglobin 1.1 (0.5-1.5) 02/08/21 23:58 FiO2 90 % 02/06/21 17:00 FiO2 % 70.0 02/08/21 23:58 Sodium 136 mmol/L (137-145) L 02/08/21 06:00 Potassium 2.4 mmol/L (3.6-5.0) L* 02/08/21 06:00 Chloride 93.1 mmol/L (98-107) L 02/08/21 06:00 Carbon Dioxide 36 mmol/L (22-30) H 02/08/21 06:00 Anion Gap 9 mmol/L 02/08/21 06:00 BUN 43 mg/dL (9-20) H 02/08/21 06:00 Creatinine 5.4 mg/dL (0.8-1.3) H 02/08/21 06:00 Estimated GFR 13 ml/min 02/08/21 06:00 BUN/Creatinine Ratio 8 % 02/08/21 06:00 Glucose 167 mg/dL (75-100) H 02/08/21 06:00 POC Glucose 172 mg/dL (70-105) H 02/07/21 23:02 Hemoglobin A1c 6.3 % (4-6) H 02/02/21 16:00 Lactic Acid 1.90 mmol/L (0.7-2.0) 01/24/21 14:38 Calcium 6.3 mg/dL (8.4-10.2) L 02/08/21 06:00 Phosphorus 3.60 mg/dL (2.5-4.5) D 02/08/21 06:00 Magnesium 2.20 mg/dL (1.7-2.3) 02/04/21 04:45 Ferritin 763.9 ng/mL (30.0-300.0) H 01/30/21 04:00 Total Bilirubin 1.50 mg/dL (0.1-1.2) H 01/26/21 05:47 AST 37 units/L (5-40) 01/26/21 05:47 ALT 29 units/L (7-56) 01/26/21 05:47 Alkaline Phosphatase 70 units/L (35-129) 01/26/21 05:47 Lactate Dehydrogenase 424 units/L (91-180) H 01/30/21 04:00 C-Reactive Protein 23.90 mg/dL (0.00-1.30) H 01/30/21 04:00 Total Protein 7.2 g/dL (6.3-8.2) 01/26/21 05:47 Albumin 2.2 g/dL (3.9-5) L 01/26/21 05:47 Albumin/Globulin Ratio 0.4 % 01/26/21 05:47 Triglycerides 503 mg/dL (2-149) H 02/06/21 17:00 Procalcitonin 0.92 ng/mL (<0.15) 01/22/21 22:57 Arterial Blood Glucose 184 mg/dL (65-95) H 02/08/21 23:58 Arterial Blood Ionized Calcium 3.6 mg/dL (4.6-5.3) L 02/08/21 23:58 Urine Color Nehal (Yellow) 01/22/21 22:39 Urine Turbidity Cloudy (Clear) 01/22/21 22:39 Urine pH 5.0 (5.0-7.0) 01/22/21 22:39 Ur Specific [place] 1.017 (1.003-1.030) 01/22/21 22:39 Urine Protein 100 mg/dl mg/dL (Negative) 01/22/21 22:39 Urine Glucose (UA) Neg mg/dL (Negative) 01/22/21 22:39 Urine Ketones Neg mg/dL (Negative) 01/22/21 22:39 Urine Blood Mod (Negative) 01/22/21 22:39 Urine Nitrite Neg (Negative) 01/22/21 22:39 Urine Bilirubin Neg (Negative) 01/22/21 22:39 Urine Urobilinogen 2.0 mg/dL (<2.0) 01/22/21 22:39 Ur Leukocyte Esterase Mod (Negative) 01/22/21 22:39 Urine WBC (Auto) < 1.0 /HPF (0.0-6.0) 01/22/21 22:39 Urine RBC (Auto) < 1.0 /HPF (0.0-6.0) 01/22/21 22:39 U Epithel Cells (Auto) < 1.0 /HPF (0-13.0) 01/22/21 22:39 Urine Osmolality 416 Mosm/kg 01/30/21 12:15 Urine Total Volume 2300 ml 01/30/21 12:00 Urine Creatinine 53.0 mg/dL (0.1-20.0) H 01/30/21 12:00 Ur Creatinine 24 Hour 1.2 (0.8-2.8) 01/30/21 12:00 Urine Sodium 28 mmol/L 01/22/21 22:39 Nasal Screen MRSA (PCR) Negative (Negative) 02/02/21 13:20 Random Vancomycin 13.7 ug/mL (0-40.0) 02/07/21 10:40 Coronavirus (PCR) Positive (Negative) A 01/23/21 08:41 Hepatitis A IgM Ab Non-reactive (NonReactive) 02/03/21 Unknown Hep Bs Antigen Non-reactive (Negative) 02/03/21 Unknown Hep B Core IgM Ab Non-reactive (NonReactive) 02/03/21 Unknown Hepatitis C Antibody Non-reactive (NonReactive) 02/03/21 Unknown Microbiology: Microbiology 02/04/21 Unknown Tracheal Aspirate Sputum Culture - Final Maegan Albicans 02/04/21 16:01 Peripheral/Venous Blood Culture - Preliminary Coag Negative Staphylococcus 02/04/21 16:01 Peripheral/Venous Blood Culture - Preliminary Coag Negative Staphylococcus 02/04/21 Unknown Urine,[place] Urine Culture - Final NO GROWTH AFTER 48 HOURS Black/IV: Voiding Method Indwelling Catheter Active Medications - Current Medications Current Medications: Generic Name Dose Route Start Last Admin Trade Name Freq PRN Reason Stop Dose Admin Acetaminophen 650 mg 01/23/21 02:25 Acetaminophen 650 Mg Rect Supp LA Q4H PRN Pain, Mild (1-3) Acetaminophen 650 mg 01/24/21 12:58 02/07/21 04:10 Acetaminophen 325 Mg/10.15 Ml Oral Liqd Unit Dose FEEDTUBE 650 mg Q6H PRN Administration Pain, Mild (1-3) Lipase/Protease/Amylase 1 each 01/26/21 14:25 Lipase 10,500/Protease 25,000/Amylase 43,750 (Units) Dr González FEEDTUBE PRN PRN For Clogged Feeding Tube Dextrose 50 ml 01/27/21 07:24 Dextrose 50% In Water (25gm) 50 Ml Syringe IV Q30MIN PRN Hypoglycemia Protocol Enoxaparin Sodium 120 mg 01/26/21 11:00 02/08/21 09:08 Enoxaparin 120 Mg/0.8 Ml Inj SUB-Q 120 mg Q24HR CECE Administration Famotidine 20 mg 01/24/21 10:00 02/08/21 09:08 Famotidine 20 Mg/2 Ml Inj IV 20 mg DAILY CECE Administration Fentanyl 50 mcg 01/22/21 22:39 Fentanyl 100 Mcg/2 Ml Inj IV Q10MIN PRN ANALGESIA Hydrophilic Ointment 1 applic 01/22/21 22:39 Lip Therapy Vaseline TP Q2HR PRN Dry Lips Fentanyl Citrate 2,000 mcg in 100 mls @ 6.124 mls/hr 01/22/21 23:00 02/08/21 08:02 Fentanyl Drip Premix IV 4 mcg/kg/hr TITR CECE 24.494 mls/hr Administration Protocol 1 MCG/KG/HR Propofol 1,000 mg in 100 mls @ 3.674 mls/hr 01/22/21 23:45 02/06/21 18:37 Diprivan 10 Mg/Ml IV 0 mcg/kg/min TITR CECE 0 mls/hr Titration Protocol 5 MCG/KG/MIN Norepinephrine 4 mg in 250 mls @ 7.5 mls/hr 01/28/21 14:00 02/08/21 06:08 Levophed Drip 4 Mg/Ns 250 Ml IV 0 mcg/min TITR CECE 0 mls/hr Titration Protocol 2 MCG/MIN Dexmedetomidine HCl 1,000 mcg/ 260 mls @ 6.368 mls/hr 01/30/21 20:00 02/08/21 04:59 Sodium Chloride IV 1.4 mcg/kg/hr TITRATE CECE 44.579 mls/hr Administration Protocol 0.2 MCG/KG/HR Sodium Bicarbonate 150 meq/ 1,150 mls @ 200 mls/hr 02/06/21 11:30 02/08/21 09:12 Dextrose IV 200 mls/hr DIRECT CECE Administration Cefepime HCl 2 gm in 100 mls @ 200 mls/hr 02/06/21 22:00 02/07/21 21:31 Cefepime/Ns 2 Gm/100 Ml IV 02/08/21 22:29 200 mls/hr QHS CECE Administration Sodium Chloride 100 mls @ 999 mls/hr 02/06/21 13:30 Nacl 0.9% IV [place] PRN Hypotension Lorazepam 100 mg/ Sodium 100 mls @ 1 mls/hr 02/06/21 19:00 02/07/21 03:40 Chloride/ Miscellaneous IV 1 mg/hr Information TITR CECE 1 mls/hr Administration Protocol 1 MG/HR Potassium Chloride 20 meq in 100 mls @ 100 mls/hr 02/08/21 09:00 02/08/21 09:09 Kcl 20meq/100ml IV 02/08/21 11:59 100 mls/hr Q1H CECE Administration Multi-Ingred Cream/Lotion/Oil/Oint 1 applic 01/22/21 22:39 02/01/21 09:33 Mineral Oil/Petrolatum, White Ophth Oint 3.5 Gm OU 1 applic Q4HR PRN Administration Dry Eye(s) Ondansetron HCl 4 mg 01/23/21 02:17 Ondansetron 4 Mg/2 Ml Inj IV Q8H PRN Nausea And Vomiting Simple Syrup 15 ml 01/26/21 14:25 Simple Syrup 15 Ml FEEDTUBE PRN PRN Hypoglycemia Simple Syrup 30 ml 01/26/21 14:25 Simple Syrup 15 Ml FEEDTUBE PRN PRN Hypoglycemia Sodium Bicarbonate 325 mg 01/26/21 14:25 Sodium Bicarbonate 325 Mg Tab FEEDTUBE PRN PRN For Clogged Feeding Tube Nutrition/Malnutrition Assess - Dietary Evaluation Nutrition/Malnutrition Findings: Nutrition Notes Start: 01/26/21 13:59 Freq: Status: Active Protocol: Document 02/05/21 12:59 CW (Rec: 02/05/21 13:09 CW [id number]) Nutrition Notes Initial or Follow up Reassessment Current Diagnosis Acute Kidney Injury,Diabetes, Sepsis,Hypertension, Respiratory Failure, Hyperlipidemia Other Pertinent Diagnosis on HD, COVID-19 (+), bilat pneu Current Diet TF - Nepro at 30 ml/hr Labs/Tests 02/04/2021 Na 149 BG 139 BUN 99 Cr 8.5 P 8.4 Pertinent Medications levophed propfol at 11.022(290 kcal provided) Height 5 ft 8 in Weight 131.7 kg [place] Body Weight (kg) 70.00 BMI 44.1 Weight change and time frame weight stable Weight Status Morbidly Obese Subjective/Other Information F/U for proning, HD, and vent status. Propofol has been increased at this time. Will adjust accordingly. Weight stable. Pt continues to receive HD daily. TF running at goal of 30 at this time. TF is being well tolerated. Burn Absent Trauma Absent GI Symptoms None Difficulty In Swallowing Skin Integrity/Comment Intact Current % PO Negligible Minimum of two criteria No physical signs of malnutrition #1 Nutrition Diagnosis Inadequate oral intake Diagnosis Progress(for reassessment Continues documentation) Is patient on ventilator? Yes Is Patient Ambulatory and/or Out of Bed No REE-([facility]-confined to bed) 2514.168 Kcal/Kg value to use for calculation 14 Approximate Energy Requirements Using 1844 kcal/Kg Calculation Used for Recommendations Kcal/kg Additional Notes Pro needs >1.2g/kg adjBW: > 115g/day for HD needs Fluid needs per MD Nutrition Intervention Change Diet Order: Increase TF regimen and flush Nutrition Support: If running continuous feed x 24 hrs without proning: Nepro at 36 ml/hr with a free water flush of 400ml water flush q4h for hypernatremia, Once resolved resume flush of 200 ml q4h. If in prone position x 12/hr day: While in prone position: Nepro at 20 ml/hr with free water flush of 100 ml q4h or per MD order. While in supine position: Nepro at 65 ml/hr with a free water flush of 400 ml q4h for hypernatremia. Once hypernatremia resolve, free water flush of 200 ml q4h or per MD order. Kcal 1,555 Protein (gm) 70 Fluid (mL) 628 Goal #1 TF tolerance Goal #2 TF to meet at least 75% energy and pro needs Anticipated Discharge Needs: unable to determine at this time Follow-Up By: 02/10/21 Additional Comments F/U proning, propofol, HD, vent status
--- NOTE | 2021-02-08 10:18 | Progress Note ---
Assessment and Plan Acute Hypoxic respiratory failure COVID-19 PNA Severe sepsis with septic shock Acute kidney injury secondary to ATN Hyperkalemia Hypernatremia DM2 on insulin Plan: s/p HD yesterday, no HD today Replace K Assess need for HD on daily basis Initiated on HD on 02/03/21 s/p Right IJ Trialysis dialysis catheter placement by Dr Reddy On free water flushes to 400 ml Strict I&O Renally dose meds Subjective Date of service: 02/08/21 Principal diagnosis: DEISI Interval history: s/p HD yesterday. Objective - Exam Narrative Exam: GE:Intubated HEENT:Limited due to Covid Neck:Limited due to Covid Chest:On Vent CVS:Limited due to Covid Abd:Limited due to Covid Neuro:Sedated - Vital Signs Vital signs: Vital Signs - 12hr 02/07/21 02/07/21 02/07/21 22:30 22:45 23:00 Temperature Pulse Rate 88 90 96 H Pulse Rate [ From Monitor] Respiratory 34 H 34 H 34 H Rate Blood Pressure 124/56 124/61 106/67 O2 Sat by Pulse 96 97 98 Oximetry 02/07/21 02/07/21 02/07/21 23:16 23:23 23:30 Temperature 100.8 F H Pulse Rate 93 H 95 H Pulse Rate [ From Monitor] Respiratory 34 H 34 H Rate Blood Pressure 141/67 141/66 O2 Sat by Pulse 98 97 Oximetry 02/07/21 02/08/21 02/08/21 23:46 00:00 00:05 Temperature Pulse Rate 95 H 92 H 95 H Pulse Rate [ 89 From Monitor] Respiratory 34 H 34 H Rate Blood Pressure 123/64 126/58 141/66 O2 Sat by Pulse 97 96 97 Oximetry 02/08/21 02/08/21 02/08/21 00:15 00:30 00:45 Temperature Pulse Rate 91 H 90 89 Pulse Rate [ From Monitor] Respiratory 34 H 34 H 34 H Rate Blood Pressure 116/55 103/55 116/55 O2 Sat by Pulse 96 96 97 Oximetry 02/08/21 02/08/21 02/08/21 01:00 01:15 01:30 Temperature Pulse Rate 88 89 88 Pulse Rate [ From Monitor] Respiratory 34 H 34 H 34 H Rate Blood Pressure 110/55 110/56 116/59 O2 Sat by Pulse 97 97 97 Oximetry 02/08/21 02/08/21 02/08/21 01:45 02:00 02:15 Temperature Pulse Rate 88 88 86 Pulse Rate [ From Monitor] Respiratory 34 H 34 H 34 H Rate Blood Pressure 113/55 116/56 116/54 O2 Sat by Pulse 97 97 98 Oximetry 02/08/21 02/08/21 02/08/21 02:30 02:45 03:00 Temperature Pulse Rate 86 87 87 Pulse Rate [ From Monitor] Respiratory 34 H 34 H 34 H Rate Blood Pressure 108/55 110/55 121/55 O2 Sat by Pulse 98 97 97 Oximetry 02/08/21 02/08/21 02/08/21 03:15 03:30 03:45 Temperature Pulse Rate 86 88 91 H Pulse Rate [ From Monitor] Respiratory 34 H 34 H 34 H Rate Blood Pressure 118/56 123/57 131/64 O2 Sat by Pulse 97 97 97 Oximetry 02/08/21 02/08/21 02/08/21 04:00 04:16 04:30 Temperature 101.8 F H Pulse Rate 98 H 107 H 107 H Pulse Rate [ 108 H From Monitor] Respiratory 34 H 35 H 34 H Rate Blood Pressure 141/66 158/69 153/72 O2 Sat by Pulse 97 97 96 Oximetry 02/08/21 02/08/21 02/08/21 04:45 05:00 05:14 Temperature Pulse Rate 115 H 111 H 111 H Pulse Rate [ From Monitor] Respiratory 20 35 H Rate Blood Pressure 144/72 134/66 134/66 O2 Sat by Pulse 84 93 93 Oximetry 02/08/21 02/08/21 02/08/21 05:15 05:30 05:45 Temperature Pulse Rate 106 H 101 H 101 H Pulse Rate [ From Monitor] Respiratory 34 H 34 H 34 H Rate Blood Pressure 128/64 125/60 130/59 O2 Sat by Pulse 95 94 94 Oximetry 02/08/21 02/08/21 02/08/21 06:00 06:15 06:30 Temperature Pulse Rate 99 H 100 H 98 H Pulse Rate [ From Monitor] Respiratory 34 H 35 H 35 H Rate Blood Pressure 118/58 124/58 119/59 O2 Sat by Pulse 94 94 93 Oximetry 02/08/21 02/08/21 02/08/21 06:45 07:00 07:15 Temperature Pulse Rate 97 H 94 H 93 H Pulse Rate [ From Monitor] Respiratory 35 H 34 H 34 H Rate Blood Pressure 116/53 108/53 114/53 O2 Sat by Pulse 94 94 94 Oximetry 02/08/21 02/08/21 02/08/21 07:23 07:30 07:45 Temperature 100.3 F H Pulse Rate 92 H 92 H Pulse Rate [ From Monitor] Respiratory 35 H 35 H Rate Blood Pressure 108/52 113/54 O2 Sat by Pulse 94 94 Oximetry 02/08/21 02/08/21 02/08/21 07:58 08:00 08:16 Temperature 100.3 F H Pulse Rate 96 H 96 H 98 H Pulse Rate [ 96 H From Monitor] Respiratory 30 H 34 H Rate Blood Pressure 128/77 128/77 140/64 O2 Sat by Pulse 95 95 93 Oximetry 02/08/21 02/08/21 02/08/21 08:30 08:45 09:00 Temperature Pulse Rate 100 H 99 H 99 H Pulse Rate [ From Monitor] Respiratory 34 H 31 H 29 H Rate Blood Pressure 130/63 125/62 123/59 O2 Sat by Pulse 94 94 95 Oximetry 02/08/21 09:15 Temperature Pulse Rate 100 H Pulse Rate [ From Monitor] Respiratory 32 H Rate Blood Pressure 117/62 O2 Sat by Pulse 94 Oximetry - Lab 02/08/21 06:00 02/08/21 06:00 Most recent lab results ABG pH 7.372 (7.320-7.450) 02/08/21 23:58 ABG pCO2 82.8 mm Hg 02/06/21 17:00 ABG pO2 109.8 mm Hg (80.0-90.0) H 02/06/21 17:00 ABG HCO3 28.7 mmol/L (20.0-26.0) H 02/06/21 17:00 ABG O2 Saturation 93.1 (0-100) 02/08/21 23:58 Calcium 6.3 mg/dL (8.4-10.2) L 02/08/21 06:00 Phosphorus 3.60 mg/dL (2.5-4.5) D 02/08/21 06:00 Magnesium 2.20 mg/dL (1.7-2.3) 02/04/21 04:45 Urine Creatinine 53.0 mg/dL (0.1-20.0) H 01/30/21 12:00 Urine Sodium 28 mmol/L 01/22/21 22:39 Medications & Allergies - Medications Allergies/Adverse Reactions: Allergies No Known Allergies Allergy (Unverified 03/12/20 13:41) Home Medications: Home Medications Medication Instructions Recorded Confirmed Last Taken Type Clindamycin [Clindamycin CAP] 300 mg PO Q8H #21 cap 03/12/20 Unknown Rx Insulin NPH/Regular [Novolin 70/30] 18 unit SUB-Q TIDAC #1 vial 03/12/20 Unknown Rx Syringe-Needle,Insulin,0.5 ml 1 box MC TID #1 box 03/12/20 Unknown Rx [Insulin Syringe/Needle 0.5 ML] Active Medications: Generic Name Dose Route Start Last Admin Trade Name Freq PRN Reason Stop Dose Admin Acetaminophen 650 mg 01/23/21 02:25 Acetaminophen 650 Mg Rect Supp MO Q4H PRN Pain, Mild (1-3) Acetaminophen 650 mg 01/24/21 12:58 02/07/21 04:10 Acetaminophen 325 Mg/10.15 Ml Oral Liqd Unit Dose FEEDTUBE 650 mg Q6H PRN Administration Pain, Mild (1-3) Lipase/Protease/Amylase 1 each 01/26/21 14:25 Lipase 10,500/Protease 25,000/Amylase 43,750 (Units) Dr Cap FEEDTUBE PRN PRN For Clogged Feeding Tube Dextrose 50 ml 01/27/21 07:24 Dextrose 50% In Water (25gm) 50 Ml Syringe IV Q30MIN PRN Hypoglycemia Protocol Enoxaparin Sodium 120 mg 01/26/21 11:00 02/08/21 09:08 Enoxaparin 120 Mg/0.8 Ml Inj SUB-Q 120 mg Q24HR CECE Administration Famotidine 20 mg 01/24/21 10:00 02/08/21 09:08 Famotidine 20 Mg/2 Ml Inj IV 20 mg DAILY CECE Administration Fentanyl 50 mcg 01/22/21 22:39 Fentanyl 100 Mcg/2 Ml Inj IV Q10MIN PRN ANALGESIA Hydrophilic Ointment 1 applic 01/22/21 22:39 Lip Therapy Vaseline TP Q2HR PRN Dry Lips Fentanyl Citrate 2,000 mcg in 100 mls @ 6.124 mls/hr 01/22/21 23:00 02/08/21 08:02 Fentanyl Drip Premix IV 4 mcg/kg/hr TITR CECE 24.494 mls/hr Administration Protocol 1 MCG/KG/HR Propofol 1,000 mg in 100 mls @ 3.674 mls/hr 01/22/21 23:45 02/06/21 18:37 Diprivan 10 Mg/Ml IV 0 mcg/kg/min TITR CECE 0 mls/hr Titration Protocol 5 MCG/KG/MIN Norepinephrine 4 mg in 250 mls @ 7.5 mls/hr 01/28/21 14:00 02/08/21 06:08 Levophed Drip 4 Mg/Ns 250 Ml IV 0 mcg/min TITR CECE 0 mls/hr Titration Protocol 2 MCG/MIN Dexmedetomidine HCl 1,000 mcg/ 260 mls @ 6.368 mls/hr 01/30/21 20:00 02/08/21 04:59 Sodium Chloride IV 1.4 mcg/kg/hr TITRATE CECE 44.579 mls/hr Administration Protocol 0.2 MCG/KG/HR Sodium Bicarbonate 150 meq/ 1,150 mls @ 200 mls/hr 02/06/21 11:30 02/08/21 09:12 Dextrose IV 200 mls/hr DIRECT CECE Administration Cefepime HCl 2 gm in 100 mls @ 200 mls/hr 02/06/21 22:00 02/07/21 21:31 Cefepime/Ns 2 Gm/100 Ml IV 02/08/21 22:29 200 mls/hr QHS CECE Administration Sodium Chloride 100 mls @ 999 mls/hr 02/06/21 13:30 Nacl 0.9% IV [place] PRN Hypotension Lorazepam 100 mg/ Sodium 100 mls @ 1 mls/hr 02/06/21 19:00 02/07/21 03:40 Chloride/ Miscellaneous IV 1 mg/hr Information TITR CECE 1 mls/hr Administration Protocol 1 MG/HR Potassium Chloride 20 meq in 100 mls @ 100 mls/hr 02/08/21 09:00 02/08/21 09:09 Kcl 20meq/100ml IV 02/08/21 11:59 100 mls/hr Q1H CECE Administration Multi-Ingred Cream/Lotion/Oil/Oint 1 applic 01/22/21 22:39 02/01/21 09:33 Mineral Oil/Petrolatum, White Ophth Oint 3.5 Gm OU 1 applic Q4HR PRN Administration Dry Eye(s) Ondansetron HCl 4 mg 01/23/21 02:17 Ondansetron 4 Mg/2 Ml Inj IV Q8H PRN Nausea And Vomiting Simple Syrup 15 ml 01/26/21 14:25 Simple Syrup 15 Ml FEEDTUBE PRN PRN Hypoglycemia Simple Syrup 30 ml 01/26/21 14:25 Simple Syrup 15 Ml FEEDTUBE PRN PRN Hypoglycemia Sodium Bicarbonate 325 mg 01/26/21 14:25 Sodium Bicarbonate 325 Mg Tab FEEDTUBE PRN PRN For Clogged Feeding Tube
--- NOTE | 2021-02-08 11:33 | Progress Note ---
Assessment and Plan 60 y/o male with ARDS secondary most likely to COVID 19 pneumonia. 02/08/21: Picc out today. Will repeat culture if patient spikes again today. Plan to replace HD catheter either late tomorrow or Tuesday morning. Continue current level of sedation. Abx therapy per ID. Wean FiO2 as tolerated, doubt will be able to do much until we can resume HD. Guarded prognosis. Replaced potassium. Will need to check in the morning. Will repeat K later this afternoon. 02/07/21: Biggest issue now is that patient's numbers are better with HD but now with bacteremia, concern for line infection. ID is correct in requesting line holiday. Has a picc and an Right IJ Dialysis catheter with 3 ports. Currently getting HD today. Have not seen renal yet. Will pull right IJ line post HD and plan to replace it Tuesday evening or Tuesday. Continue bicarb drip for now and will keep picc as patient has been requiring levophed. If able to be weaned off levophed, will remove picc either tomorrow or Tuesday. Continue Ativan, Precedex and Fent drips, repeat Triglycerides on Tuesday. Very very guarded prognosis. Will remove Black today as well. 02/06/21: Will add bicarb drip at 125/hr. Giving 2 amps of NaHCO3 push now. Will repeat ABG this afternoon, may just ask for Art Line if possible. HD today per renal and I spoke with them about the bicarb drip. Long discussion with Sister, Significant and other and another family member on the phone on yesterday. I tried my best to explain the severity of the clinical state but not sure if they fully understood. The patient is very very ill and history suggests that his outcome will be poor (intubated with covid and renal failure on dialysis). This was expressed with the family. Will continue all supportive measures. Checking triglyceride levels today. 02/05/21: WIll increase PEEP to 16. Can increase pressors if needed for BP control during HD. Follow up cultures. If negative will scan legs and arms again for VTE. Repeat ABG at 1400 today. Will speak with sister and Girlfriend on phone today. 02/04/21: HD again today per renal notes. Likely will need daily HD. New fevers. Will draw blood and urine cultures if able to still make urine.. Repeat CXR. May need to check dopplers if all of those studies are negative. Wean FIO2 as tolerated. Unable to tolerate proning. Guarded to poor prognosis. 02/03/21: HD today per renal. Wean FiO2 as tolerated. No further proning as patient cannot tolerate it, however with volume removal, may consider in the future. Use pressors to keep MAPs 65 and greater for HD purporses so volume can be removed. (IJ was wide open (filled with blood)) with patient sitting up at 45 degrees. Guarded prognosis. 02/02/21: After renal speaks with family, will place vascath today. Agree with bicarb drip but will order some pushes now to help with pH. Overall prognosis is very very guarded to poor now that patient is COVID positive and requiring renal replacement therapy. Mortality is very high in these patients. Continue steroid therapy. Unable to tolerate proning. 01/30/21: Will plan for proning later today. Goal will be at least 12hrs but long is okay. Speaking with pharmacy to see if we can get paralytic for a longer period of time. Regardless will prone. Continue heavy sedation. BP stable. Continue steroids. Very very guarded prognosis. 01/29/21: will increase tidal volume and/or increase respiratory rate. Repeat ABG this afternoon. Continue paralytic and adequate sedation. Continue steroid and remdesivir, follow up any renal recs. Prognosis remains guarded. Wean Fio 2 for sats >88% 01/28/21: Increased PEEP to 16. Will paralyze patient today and increase sedation. Ordering picc line for possible vasopressor therapy needs. Continue BID steroids. Renal function is slightly better today with fluids but could be making oxygenation worse. Not able to diurese. Still making urine. Continue Remdesivir. Watch for fever curve. If not improvement in the next 24 hours with paralyzing, will prone tomorrow morning. 01/27/21: Continue PEEP at 14. No weaning until FiO2 is at or below 40-45%. Continue anticoagulation. Getting Remdesivir now. Continue BID steroids. Renal has increased the fluids. Monitor urine output and renal function. Overall prognosis is very very guarded, especially if renal status worsens. 01/26/21: Increase PEEP to 14. Will add Precedex therapy. If patient does not respond to increases in PEEP may need to prone. Will place patient on lovenox and will feed patient. Remdesivir coming. Continue BID steroids. Prognosis is guarded. 01/25/21: Hold on proning today. Continue BID steroids. ABG this AM was adequate. Pending abg tomorrow, may increase PEEP if not able to wean FiO2 any further. Per charting Remdesivir to arrive tomorrow. Guarded prognosis. 01/24/21: Continue BID steroids. No abg done this am but able to wean FiO2. Will obtain ABG in the am. Hold on proning for right now. Renal following, would like to diurese but they are given fluids for deisi. Agree with ID assessment and note. Guarded prognosis. 1. Increase steroids to BID given size 2. Check with ID to see if he is a candidate for remdesivir or any other experiemental therapy 3. Hold on proning for right now 4. Renal consulted and giving IVF's currently Guarded prognosis. CCT 31 minutes. Subjective Date of service: 02/08/21 Principal diagnosis: DEISI Interval history: Dialysis catheter removed on yesterday. Still spiked temp to 101.8. COag negative staph so far in cultures. Picc still in place. Had HD on yesterday. pH is better at 7.37 Objective Vital Signs - 12hr 02/07/21 02/07/21 02/08/21 23:30 23:46 00:00 Temperature Pulse Rate 95 H 95 H 92 H Pulse Rate [ 89 From Monitor] Respiratory 34 H 34 H 34 H Rate Blood Pressure 141/66 123/64 126/58 O2 Sat by Pulse 97 97 96 Oximetry 02/08/21 02/08/21 02/08/21 00:05 00:15 00:30 Temperature Pulse Rate 95 H 91 H 90 Pulse Rate [ From Monitor] Respiratory 34 H 34 H Rate Blood Pressure 141/66 116/55 103/55 O2 Sat by Pulse 97 96 96 Oximetry 02/08/21 02/08/21 02/08/21 00:45 01:00 01:15 Temperature Pulse Rate 89 88 89 Pulse Rate [ From Monitor] Respiratory 34 H 34 H 34 H Rate Blood Pressure 116/55 110/55 110/56 O2 Sat by Pulse 97 97 97 Oximetry 02/08/21 02/08/21 02/08/21 01:30 01:45 02:00 Temperature Pulse Rate 88 88 88 Pulse Rate [ From Monitor] Respiratory 34 H 34 H 34 H Rate Blood Pressure 116/59 113/55 116/56 O2 Sat by Pulse 97 97 97 Oximetry 02/08/21 02/08/21 02/08/21 02:15 02:30 02:45 Temperature Pulse Rate 86 86 87 Pulse Rate [ From Monitor] Respiratory 34 H 34 H 34 H Rate Blood Pressure 116/54 108/55 110/55 O2 Sat by Pulse 98 98 97 Oximetry 02/08/21 02/08/21 02/08/21 03:00 03:15 03:30 Temperature Pulse Rate 87 86 88 Pulse Rate [ From Monitor] Respiratory 34 H 34 H 34 H Rate Blood Pressure 121/55 118/56 123/57 O2 Sat by Pulse 97 97 97 Oximetry 02/08/21 02/08/21 02/08/21 03:45 04:00 04:16 Temperature 101.8 F H Pulse Rate 91 H 98 H 107 H Pulse Rate [ 108 H From Monitor] Respiratory 34 H 34 H 35 H Rate Blood Pressure 131/64 141/66 158/69 O2 Sat by Pulse 97 97 97 Oximetry 02/08/21 02/08/21 02/08/21 04:30 04:45 05:00 Temperature Pulse Rate 107 H 115 H 111 H Pulse Rate [ From Monitor] Respiratory 34 H 20 35 H Rate Blood Pressure 153/72 144/72 134/66 O2 Sat by Pulse 96 84 93 Oximetry 02/08/21 02/08/21 02/08/21 05:14 05:15 05:30 Temperature Pulse Rate 111 H 106 H 101 H Pulse Rate [ From Monitor] Respiratory 34 H 34 H Rate Blood Pressure 134/66 128/64 125/60 O2 Sat by Pulse 93 95 94 Oximetry 02/08/21 02/08/21 02/08/21 05:45 06:00 06:15 Temperature Pulse Rate 101 H 99 H 100 H Pulse Rate [ From Monitor] Respiratory 34 H 34 H 35 H Rate Blood Pressure 130/59 118/58 124/58 O2 Sat by Pulse 94 94 94 Oximetry 02/08/21 02/08/21 02/08/21 06:30 06:45 07:00 Temperature Pulse Rate 98 H 97 H 94 H Pulse Rate [ From Monitor] Respiratory 35 H 35 H 34 H Rate Blood Pressure 119/59 116/53 108/53 O2 Sat by Pulse 93 94 94 Oximetry 02/08/21 02/08/21 02/08/21 07:15 07:23 07:30 Temperature 100.3 F H Pulse Rate 93 H 92 H Pulse Rate [ From Monitor] Respiratory 34 H 35 H Rate Blood Pressure 114/53 108/52 O2 Sat by Pulse 94 94 Oximetry 02/08/21 02/08/21 02/08/21 07:45 07:58 08:00 Temperature 100.3 F H Pulse Rate 92 H 96 H 96 H Pulse Rate [ 96 H From Monitor] Respiratory 35 H 30 H Rate Blood Pressure 113/54 128/77 128/77 O2 Sat by Pulse 94 95 95 Oximetry 02/08/21 02/08/21 02/08/21 08:16 08:30 08:45 Temperature Pulse Rate 98 H 100 H 99 H Pulse Rate [ From Monitor] Respiratory 34 H 34 H 31 H Rate Blood Pressure 140/64 130/63 125/62 O2 Sat by Pulse 93 94 94 Oximetry 02/08/21 02/08/21 02/08/21 09:00 09:15 11:08 Temperature Pulse Rate 99 H 100 H 96 H Pulse Rate [ From Monitor] Respiratory 29 H 32 H Rate Blood Pressure 123/59 117/62 106/62 O2 Sat by Pulse 95 94 Oximetry Constitutional: comatose Eyes: non-icteric ENT: other (orally intubated and sedated) Neck: supple Effort: mildly labored Ascultation: Bilateral: clear Percussion: Bilateral: not dull Cardiovascular: regular rate and rhythm Gastrointestinal: normoactive bowel sounds CBC and BMP: 02/08/21 06:00 02/08/21 06:00 ABG, PT/INR, D-dimer: ABG ABG pH 7.372 (7.320-7.450) 02/08/21 23:58 POC ABG pCO2 63.3 mmHg (32.0-48.0) H 02/08/21 23:58 ABG pCO2 82.8 mm Hg 02/06/21 17:00 POC ABG pO2 71.2 mmHg (83-108) L 02/08/21 23:58 ABG pO2 109.8 mm Hg (80.0-90.0) H 02/06/21 17:00 POC ABG HCO3 35.9 02/08/21 23:58 ABG O2 Saturation 93.1 (0-100) 02/08/21 23:58 PT/INR, D-dimer D-Dimer > 23185 ng/mlDDU (0-234) H 01/30/21 04:00 Abnormal lab findings: Abnormal Labs 01/22/21 01/22/21 01/22/21 22:39 22:57 22:57 WBC RBC Hgb Hct MCV MCH MCHC RDW Plt Count Lymph % (Auto) 6.6 L Lymph # (Auto) 0.5 L Seg Neutrophils % 87.6 H Seg Neuts % (Manual) Lymphocytes % (Manual) Seg Neutrophils # Seg Neutrophils # Man Lymphocytes # (Manual) Eosinophils # (Manual) D-Dimer ABG pH POC ABG pCO2 POC ABG pO2 ABG pO2 ABG HCO3 ABG O2 Saturation ABG Base Excess ABG Hemoglobin ABG Oxyhemoglobin ABG Sodium ABG Potassium ABG Chloride ABG Glucose Oxyhemoglobin Carboxyhemoglobin Sodium 129 L Potassium 3.4 L Chloride 90.4 L Carbon Dioxide BUN 34 H Creatinine 1.5 H Glucose 146 H POC Glucose Hemoglobin A1c Lactic Acid Calcium 7.8 L Phosphorus Magnesium Ferritin Total Bilirubin AST 75 H ALT 57 H Lactate Dehydrogenase C-Reactive Protein Albumin 2.9 L Triglycerides Arterial Blood Glucose Arterial Blood Ionized Calcium Urine Creatinine 301.2 H Coronavirus (PCR) 01/22/21 01/22/21 01/22/21 22:57 22:57 22:57 WBC RBC Hgb Hct MCV MCH MCHC RDW Plt Count Lymph % (Auto) Lymph # (Auto) Seg Neutrophils % Seg Neuts % (Manual) Lymphocytes % (Manual) Seg Neutrophils # Seg Neutrophils # Man Lymphocytes # (Manual) Eosinophils # (Manual) D-Dimer 1173.89 H ABG pH POC ABG pCO2 POC ABG pO2 ABG pO2 ABG HCO3 ABG O2 Saturation ABG Base Excess ABG Hemoglobin ABG Oxyhemoglobin ABG Sodium ABG Potassium ABG Chloride ABG Glucose Oxyhemoglobin Carboxyhemoglobin Sodium Potassium Chloride Carbon Dioxide BUN Creatinine Glucose 149 H POC Glucose Hemoglobin A1c Lactic Acid 2.10 H* Calcium Phosphorus Magnesium Ferritin Total Bilirubin AST ALT Lactate Dehydrogenase 685 H C-Reactive Protein 30.40 H Albumin Triglycerides Arterial Blood Glucose Arterial Blood Ionized Calcium Urine Creatinine Coronavirus (PCR) 01/22/21 01/23/21 01/23/21 22:57 08:41 10:01 WBC RBC Hgb Hct MCV MCH MCHC RDW Plt Count Lymph % (Auto) Lymph # (Auto) Seg Neutrophils % Seg Neuts % (Manual) Lymphocytes % (Manual) Seg Neutrophils # Seg Neutrophils # Man Lymphocytes # (Manual) Eosinophils # (Manual) D-Dimer ABG pH POC ABG pCO2 POC ABG pO2 ABG pO2 ABG HCO3 ABG O2 Saturation ABG Base Excess ABG Hemoglobin ABG Oxyhemoglobin ABG Sodium ABG Potassium ABG Chloride ABG Glucose Oxyhemoglobin Carboxyhemoglobin Sodium 131 L Potassium Chloride 88.7 L Carbon Dioxide 18 L BUN 36 H Creatinine 1.6 H Glucose 147 H POC Glucose Hemoglobin A1c Lactic Acid Calcium 7.5 L Phosphorus Magnesium Ferritin 1207.0 H Total Bilirubin AST ALT Lactate Dehydrogenase C-Reactive Protein Albumin Triglycerides Arterial Blood Glucose Arterial Blood Ionized Calcium Urine Creatinine Coronavirus (PCR) Positive A 01/23/21 01/23/21 01/24/21 20:49 Unknown 00:10 WBC RBC Hgb Hct MCV MCH MCHC RDW Plt Count Lymph % (Auto) Lymph # (Auto) Seg Neutrophils % Seg Neuts % (Manual) Lymphocytes % (Manual) Seg Neutrophils # Seg Neutrophils # Man Lymphocytes # (Manual) Eosinophils # (Manual) D-Dimer ABG pH POC ABG pCO2 POC ABG pO2 ABG pO2 165.4 H ABG HCO3 ABG O2 Saturation ABG Base Excess -2.5 L ABG Hemoglobin ABG Oxyhemoglobin ABG Sodium ABG Potassium ABG Chloride ABG Glucose Oxyhemoglobin Carboxyhemoglobin Sodium 130 L Potassium Chloride 91.0 L Carbon Dioxide 20 L BUN 52 H Creatinine 3.8 H D Glucose 150 H POC Glucose 125 H Hemoglobin A1c Lactic Acid Calcium 8.0 L Phosphorus Magnesium Ferritin Total Bilirubin AST 42 H ALT Lactate Dehydrogenase C-Reactive Protein Albumin 2.4 L Triglycerides Arterial Blood Glucose Arterial Blood Ionized Calcium Urine Creatinine Coronavirus (PCR) 01/24/21 01/24/21 01/24/21 05:05 05:05 05:05 WBC 14.0 H RBC Hgb Hct MCV 95 H MCH 33 H MCHC RDW Plt Count Lymph % (Auto) Lymph # (Auto) Seg Neutrophils % Seg Neuts % (Manual) 91.0 H Lymphocytes % (Manual) 4.0 L Seg Neutrophils # Seg Neutrophils # Man 12.7 H Lymphocytes # (Manual) 0.6 L Eosinophils # (Manual) D-Dimer 6159.48 H ABG pH POC ABG pCO2 POC ABG pO2 ABG pO2 ABG HCO3 ABG O2 Saturation ABG Base Excess ABG Hemoglobin ABG Oxyhemoglobin ABG Sodium ABG Potassium ABG Chloride ABG Glucose Oxyhemoglobin Carboxyhemoglobin Sodium Potassium Chloride Carbon Dioxide BUN Creatinine Glucose POC Glucose Hemoglobin A1c Lactic Acid Calcium Phosphorus Magnesium Ferritin 1178.0 H Total Bilirubin AST ALT Lactate Dehydrogenase C-Reactive Protein Albumin Triglycerides Arterial Blood Glucose Arterial Blood Ionized Calcium Urine Creatinine Coronavirus (PCR) 01/24/21 01/24/21 01/24/21 05:05 05:05 05:05 WBC RBC Hgb Hct MCV MCH MCHC RDW Plt Count Lymph % (Auto) Lymph # (Auto) Seg Neutrophils % Seg Neuts % (Manual) Lymphocytes % (Manual) Seg Neutrophils # Seg Neutrophils # Man Lymphocytes # (Manual) Eosinophils # (Manual) D-Dimer ABG pH POC ABG pCO2 POC ABG pO2 ABG pO2 ABG HCO3 ABG O2 Saturation ABG Base Excess ABG Hemoglobin ABG Oxyhemoglobin ABG Sodium ABG Potassium ABG Chloride ABG Glucose Oxyhemoglobin Carboxyhemoglobin Sodium 132 L Potassium Chloride 93.1 L Carbon Dioxide 21 L BUN 57 H Creatinine 3.7 H Glucose 133 H POC Glucose Hemoglobin A1c Lactic Acid 2.20 H* Calcium 7.7 L Phosphorus Magnesium Ferritin Total Bilirubin AST ALT Lactate Dehydrogenase 658 H C-Reactive Protein 33.20 H Albumin 2.4 L Triglycerides Arterial Blood Glucose Arterial Blood Ionized Calcium Urine Creatinine Coronavirus (PCR) 01/24/21 01/24/21 01/24/21 05:34 06:00 17:35 WBC RBC Hgb Hct MCV MCH MCHC RDW Plt Count Lymph % (Auto) Lymph # (Auto) Seg Neutrophils % Seg Neuts % (Manual) Lymphocytes % (Manual) Seg Neutrophils # Seg Neutrophils # Man Lymphocytes # (Manual) Eosinophils # (Manual) D-Dimer ABG pH POC ABG pCO2 POC ABG pO2 ABG pO2 ABG HCO3 ABG O2 Saturation ABG Base Excess ABG Hemoglobin ABG Oxyhemoglobin ABG Sodium ABG Potassium ABG Chloride ABG Glucose Oxyhemoglobin Carboxyhemoglobin Sodium Potassium Chloride Carbon Dioxide BUN Creatinine Glucose POC Glucose 136 H 137 H Hemoglobin A1c Lactic Acid Calcium Phosphorus Magnesium 2.80 H Ferritin Total Bilirubin AST ALT Lactate Dehydrogenase C-Reactive Protein Albumin Triglycerides Arterial Blood Glucose Arterial Blood Ionized Calcium Urine Creatinine Coronavirus (PCR) 01/25/21 01/25/21 01/25/21 04:15 05:40 05:40 WBC RBC Hgb Hct MCV 95 H MCH 33 H MCHC 35 H RDW Plt Count Lymph % (Auto) Lymph # (Auto) Seg Neutrophils % Seg Neuts % (Manual) 95.0 H Lymphocytes % (Manual) 3.0 L Seg Neutrophils # Seg Neutrophils # Man 7.8 H Lymphocytes # (Manual) 0.2 L Eosinophils # (Manual) D-Dimer ABG pH POC ABG pCO2 POC ABG pO2 63.2 L ABG pO2 ABG HCO3 ABG O2 Saturation ABG Base Excess ABG Hemoglobin ABG Oxyhemoglobin 89.6 L ABG Sodium ABG Potassium ABG Chloride ABG Glucose 165 H Oxyhemoglobin Carboxyhemoglobin 0.3 L Sodium Potassium Chloride Carbon Dioxide BUN 67 H Creatinine 3.4 H Glucose 153 H POC Glucose Hemoglobin A1c Lactic Acid Calcium 7.5 L Phosphorus Magnesium Ferritin Total Bilirubin 1.40 H AST 62 H ALT Lactate Dehydrogenase C-Reactive Protein Albumin 2.6 L Triglycerides Arterial Blood Glucose 165 H Arterial Blood Ionized Calcium 4.3 L Urine Creatinine Coronavirus (PCR) 01/25/21 01/25/21 01/25/21 05:59 12:00 17:17 WBC RBC Hgb Hct MCV MCH MCHC RDW Plt Count Lymph % (Auto) Lymph # (Auto) Seg Neutrophils % Seg Neuts % (Manual) Lymphocytes % (Manual) Seg Neutrophils # Seg Neutrophils # Man Lymphocytes # (Manual) Eosinophils # (Manual) D-Dimer ABG pH POC ABG pCO2 POC ABG pO2 ABG pO2 ABG HCO3 ABG O2 Saturation ABG Base Excess ABG Hemoglobin ABG Oxyhemoglobin ABG Sodium ABG Potassium ABG Chloride ABG Glucose Oxyhemoglobin Carboxyhemoglobin Sodium Potassium Chloride Carbon Dioxide BUN Creatinine Glucose POC Glucose 140 H 143 H 149 H Hemoglobin A1c Lactic Acid Calcium Phosphorus Magnesium Ferritin Total Bilirubin AST ALT Lactate Dehydrogenase C-Reactive Protein Albumin Triglycerides Arterial Blood Glucose Arterial Blood Ionized Calcium Urine Creatinine Coronavirus (PCR) 01/25/21 01/26/21 01/26/21 23:41 03:43 05:46 WBC RBC Hgb Hct MCV MCH MCHC RDW Plt Count Lymph % (Auto) Lymph # (Auto) Seg Neutrophils % Seg Neuts % (Manual) Lymphocytes % (Manual) Seg Neutrophils # Seg Neutrophils # Man Lymphocytes # (Manual) Eosinophils # (Manual) D-Dimer ABG pH POC ABG pCO2 POC ABG pO2 70.0 L ABG pO2 ABG HCO3 ABG O2 Saturation ABG Base Excess ABG Hemoglobin ABG Oxyhemoglobin 91.9 L ABG Sodium ABG Potassium ABG Chloride 109.0 H ABG Glucose 165 H Oxyhemoglobin Carboxyhemoglobin Sodium Potassium Chloride Carbon Dioxide BUN Creatinine Glucose POC Glucose 132 H 161 H Hemoglobin A1c Lactic Acid Calcium Phosphorus Magnesium Ferritin Total Bilirubin AST ALT Lactate Dehydrogenase C-Reactive Protein Albumin Triglycerides Arterial Blood Glucose 165 H Arterial Blood Ionized Calcium 4.5 L Urine Creatinine Coronavirus (PCR) 01/26/21 01/26/21 01/26/21 05:47 05:47 05:47 WBC RBC Hgb Hct 35.3 L MCV 96 H MCH 33 H MCHC RDW Plt Count Lymph % (Auto) Lymph # (Auto) Seg Neutrophils % Seg Neuts % (Manual) 96.0 H Lymphocytes % (Manual) 2.0 L Seg Neutrophils # Seg Neutrophils # Man Lymphocytes # (Manual) 0.1 L Eosinophils # (Manual) D-Dimer > 93664 H ABG pH POC ABG pCO2 POC ABG pO2 ABG pO2 ABG HCO3 ABG O2 Saturation ABG Base Excess ABG Hemoglobin ABG Oxyhemoglobin ABG Sodium ABG Potassium ABG Chloride ABG Glucose Oxyhemoglobin Carboxyhemoglobin Sodium Potassium Chloride Carbon Dioxide BUN 57 H Creatinine 2.2 H Glucose 185 H POC Glucose Hemoglobin A1c Lactic Acid Calcium 8.1 L Phosphorus Magnesium Ferritin Total Bilirubin AST ALT Lactate Dehydrogenase C-Reactive Protein Albumin Triglycerides Arterial Blood Glucose Arterial Blood Ionized Calcium Urine Creatinine Coronavirus (PCR) 01/26/21 01/26/21 01/26/21 05:47 05:47 05:47 WBC RBC Hgb Hct MCV MCH MCHC RDW Plt Count Lymph % (Auto) Lymph # (Auto) Seg Neutrophils % Seg Neuts % (Manual) Lymphocytes % (Manual) Seg Neutrophils # Seg Neutrophils # Man Lymphocytes # (Manual) Eosinophils # (Manual) D-Dimer ABG pH POC ABG pCO2 POC ABG pO2 ABG pO2 ABG HCO3 ABG O2 Saturation ABG Base Excess ABG Hemoglobin ABG Oxyhemoglobin ABG Sodium ABG Potassium ABG Chloride ABG Glucose Oxyhemoglobin Carboxyhemoglobin Sodium Potassium Chloride 107.1 H Carbon Dioxide BUN 56 H Creatinine 2.2 H Glucose 188 H POC Glucose Hemoglobin A1c Lactic Acid Calcium 8.0 L Phosphorus Magnesium Ferritin 1178.0 H Total Bilirubin 1.50 H AST ALT Lactate Dehydrogenase 588 H C-Reactive Protein 40.10 H Albumin 2.2 L Triglycerides Arterial Blood Glucose Arterial Blood Ionized Calcium Urine Creatinine Coronavirus (PCR) 01/26/21 01/26/21 01/26/21 11:34 18:17 23:20 WBC RBC Hgb Hct MCV MCH MCHC RDW Plt Count Lymph % (Auto) Lymph # (Auto) Seg Neutrophils % Seg Neuts % (Manual) Lymphocytes % (Manual) Seg Neutrophils # Seg Neutrophils # Man Lymphocytes # (Manual) Eosinophils # (Manual) D-Dimer ABG pH POC ABG pCO2 POC ABG pO2 ABG pO2 ABG HCO3 ABG O2 Saturation ABG Base Excess ABG Hemoglobin ABG Oxyhemoglobin ABG Sodium ABG Potassium ABG Chloride ABG Glucose Oxyhemoglobin Carboxyhemoglobin Sodium Potassium Chloride Carbon Dioxide BUN Creatinine Glucose POC Glucose 129 H 205 H 155 H Hemoglobin A1c Lactic Acid Calcium Phosphorus Magnesium Ferritin Total Bilirubin AST ALT Lactate Dehydrogenase C-Reactive Protein Albumin Triglycerides Arterial Blood Glucose Arterial Blood Ionized Calcium Urine Creatinine Coronavirus (PCR) 01/27/21 01/27/21 01/27/21 02:45 05:29 05:29 WBC RBC 3.58 L Hgb 11.7 L Hct 34.9 L MCV 97 H MCH 33 H MCHC RDW Plt Count Lymph % (Auto) Lymph # (Auto) Seg Neutrophils % Seg Neuts % (Manual) 88.0 H Lymphocytes % (Manual) 7.0 L Seg Neutrophils # Seg Neutrophils # Man Lymphocytes # (Manual) 0.5 L Eosinophils # (Manual) D-Dimer ABG pH 7.319 L POC ABG pCO2 50.7 H POC ABG pO2 63.0 L ABG pO2 ABG HCO3 ABG O2 Saturation ABG Base Excess ABG Hemoglobin ABG Oxyhemoglobin ABG Sodium 145.2 H ABG Potassium 5.1 H ABG Chloride 114.0 H ABG Glucose 178 H Oxyhemoglobin Carboxyhemoglobin Sodium Potassium Chloride Carbon Dioxide BUN Creatinine Glucose POC Glucose Hemoglobin A1c Lactic Acid Calcium Phosphorus Magnesium 4.00 H Ferritin Total Bilirubin AST ALT Lactate Dehydrogenase C-Reactive Protein Albumin Triglycerides Arterial Blood Glucose 178 H Arterial Blood Ionized Calcium Urine Creatinine Coronavirus (PCR) 01/27/21 01/27/21 01/27/21 05:29 05:29 05:31 WBC RBC Hgb Hct MCV MCH MCHC RDW Plt Count Lymph % (Auto) Lymph # (Auto) Seg Neutrophils % Seg Neuts % (Manual) Lymphocytes % (Manual) Seg Neutrophils # Seg Neutrophils # Man Lymphocytes # (Manual) Eosinophils # (Manual) D-Dimer ABG pH POC ABG pCO2 POC ABG pO2 ABG pO2 ABG HCO3 ABG O2 Saturation ABG Base Excess ABG Hemoglobin ABG Oxyhemoglobin ABG Sodium ABG Potassium ABG Chloride ABG Glucose Oxyhemoglobin Carboxyhemoglobin Sodium Potassium 5.2 H Chloride 109.6 H Carbon Dioxide BUN 67 H Creatinine 2.8 H Glucose 195 H POC Glucose 176 H Hemoglobin A1c Lactic Acid Calcium 7.9 L Phosphorus Magnesium Ferritin Total Bilirubin AST ALT Lactate Dehydrogenase C-Reactive Protein Albumin Triglycerides 160 H Arterial Blood Glucose Arterial Blood Ionized Calcium Urine Creatinine Coronavirus (PCR) 01/27/21 01/27/21 01/27/21 11:27 18:08 23:30 WBC RBC Hgb Hct MCV MCH MCHC RDW Plt Count Lymph % (Auto) Lymph # (Auto) Seg Neutrophils % Seg Neuts % (Manual) Lymphocytes % (Manual) Seg Neutrophils # Seg Neutrophils # Man Lymphocytes # (Manual) Eosinophils # (Manual) D-Dimer ABG pH POC ABG pCO2 POC ABG pO2 ABG pO2 ABG HCO3 ABG O2 Saturation ABG Base Excess ABG Hemoglobin ABG Oxyhemoglobin ABG Sodium ABG Potassium ABG Chloride ABG Glucose Oxyhemoglobin Carboxyhemoglobin Sodium Potassium Chloride Carbon Dioxide BUN Creatinine Glucose POC Glucose 189 H 212 H 175 H Hemoglobin A1c Lactic Acid Calcium Phosphorus Magnesium Ferritin Total Bilirubin AST ALT Lactate Dehydrogenase C-Reactive Protein Albumin Triglycerides Arterial Blood Glucose Arterial Blood Ionized Calcium Urine Creatinine Coronavirus (PCR) 01/28/21 01/28/21 01/28/21 03:58 04:00 04:00 WBC RBC Hgb Hct MCV MCH MCHC RDW Plt Count Lymph % (Auto) Lymph # (Auto) Seg Neutrophils % Seg Neuts % (Manual) Lymphocytes % (Manual) Seg Neutrophils # Seg Neutrophils # Man Lymphocytes # (Manual) Eosinophils # (Manual) D-Dimer > 97794 H ABG pH POC ABG pCO2 POC ABG pO2 52.9 L ABG pO2 ABG HCO3 ABG O2 Saturation ABG Base Excess ABG Hemoglobin ABG Oxyhemoglobin 84.1 L ABG Sodium 148.9 H ABG Potassium ABG Chloride 117.0 H ABG Glucose 194 H Oxyhemoglobin Carboxyhemoglobin Sodium Potassium Chloride Carbon Dioxide BUN Creatinine Glucose POC Glucose Hemoglobin A1c Lactic Acid Calcium Phosphorus Magnesium Ferritin Total Bilirubin AST ALT Lactate Dehydrogenase 679 H C-Reactive Protein 17.10 H Albumin Triglycerides Arterial Blood Glucose 194 H Arterial Blood Ionized Calcium Urine Creatinine Coronavirus (PCR) 01/28/21 01/28/21 01/28/21 04:00 05:00 06:00 WBC RBC 3.59 L Hgb 11.6 L Hct 34.8 L MCV 97 H MCH MCHC RDW Plt Count Lymph % (Auto) Lymph # (Auto) Seg Neutrophils % Seg Neuts % (Manual) 96.0 H Lymphocytes % (Manual) 3.0 L Seg Neutrophils # Seg Neutrophils # Man Lymphocytes # (Manual) 0.2 L Eosinophils # (Manual) D-Dimer ABG pH POC ABG pCO2 POC ABG pO2 ABG pO2 ABG HCO3 ABG O2 Saturation ABG Base Excess ABG Hemoglobin ABG Oxyhemoglobin ABG Sodium ABG Potassium ABG Chloride ABG Glucose Oxyhemoglobin Carboxyhemoglobin Sodium Potassium Chloride Carbon Dioxide BUN Creatinine Glucose POC Glucose 159 H Hemoglobin A1c Lactic Acid Calcium Phosphorus Magnesium Ferritin 798.0 H Total Bilirubin AST ALT Lactate Dehydrogenase C-Reactive Protein Albumin Triglycerides Arterial Blood Glucose Arterial Blood Ionized Calcium Urine Creatinine Coronavirus (PCR) 01/28/21 01/28/21 01/28/21 06:00 06:00 08:12 WBC RBC Hgb Hct MCV MCH MCHC RDW Plt Count Lymph % (Auto) Lymph # (Auto) Seg Neutrophils % Seg Neuts % (Manual) Lymphocytes % (Manual) Seg Neutrophils # Seg Neutrophils # Man Lymphocytes # (Manual) Eosinophils # (Manual) D-Dimer ABG pH POC ABG pCO2 POC ABG pO2 ABG pO2 ABG HCO3 ABG O2 Saturation ABG Base Excess ABG Hemoglobin ABG Oxyhemoglobin ABG Sodium ABG Potassium ABG Chloride ABG Glucose Oxyhemoglobin Carboxyhemoglobin Sodium Potassium Chloride 111.9 H Carbon Dioxide BUN 59 H Creatinine 2.2 H Glucose 189 H POC Glucose 181 H Hemoglobin A1c Lactic Acid Calcium 8.1 L Phosphorus Magnesium 3.20 H Ferritin Total Bilirubin AST ALT Lactate Dehydrogenase C-Reactive Protein Albumin Triglycerides Arterial Blood Glucose Arterial Blood Ionized Calcium Urine Creatinine Coronavirus (PCR) 01/28/21 01/28/21 01/28/21 12:03 16:43 23:51 WBC RBC Hgb Hct MCV MCH MCHC RDW Plt Count Lymph % (Auto) Lymph # (Auto) Seg Neutrophils % Seg Neuts % (Manual) Lymphocytes % (Manual) Seg Neutrophils # Seg Neutrophils # Man Lymphocytes # (Manual) Eosinophils # (Manual) D-Dimer ABG pH POC ABG pCO2 POC ABG pO2 ABG pO2 ABG HCO3 ABG O2 Saturation ABG Base Excess ABG Hemoglobin ABG Oxyhemoglobin ABG Sodium ABG Potassium ABG Chloride ABG Glucose Oxyhemoglobin Carboxyhemoglobin Sodium Potassium Chloride Carbon Dioxide BUN Creatinine Glucose POC Glucose 164 H 198 H 196 H Hemoglobin A1c Lactic Acid Calcium Phosphorus Magnesium Ferritin Total Bilirubin AST ALT Lactate Dehydrogenase C-Reactive Protein Albumin Triglycerides Arterial Blood Glucose Arterial Blood Ionized Calcium Urine Creatinine Coronavirus (PCR) 01/29/21 01/29/21 01/29/21 05:00 05:23 06:00 WBC RBC Hgb Hct MCV MCH MCHC RDW Plt Count Lymph % (Auto) Lymph # (Auto) Seg Neutrophils % Seg Neuts % (Manual) Lymphocytes % (Manual) Seg Neutrophils # Seg Neutrophils # Man Lymphocytes # (Manual) Eosinophils # (Manual) D-Dimer ABG pH 7.119 L POC ABG pCO2 87.1 H POC ABG pO2 ABG pO2 ABG HCO3 ABG O2 Saturation ABG Base Excess ABG Hemoglobin ABG Oxyhemoglobin ABG Sodium 152.5 H ABG Potassium 5.7 H ABG Chloride 120.0 H ABG Glucose 217 H Oxyhemoglobin Carboxyhemoglobin Sodium 151 H Potassium 5.9 H D Chloride 117.8 H Carbon Dioxide BUN 54 H Creatinine 2.2 H Glucose 208 H POC Glucose 180 H Hemoglobin A1c Lactic Acid Calcium 7.9 L Phosphorus Magnesium Ferritin Total Bilirubin AST ALT Lactate Dehydrogenase C-Reactive Protein Albumin Triglycerides Arterial Blood Glucose 217 H Arterial Blood Ionized Calcium Urine Creatinine Coronavirus (PCR) 01/29/21 01/29/21 01/29/21 12:29 17:28 18:05 WBC RBC Hgb Hct MCV MCH MCHC RDW Plt Count Lymph % (Auto) Lymph # (Auto) Seg Neutrophils % Seg Neuts % (Manual) Lymphocytes % (Manual) Seg Neutrophils # Seg Neutrophils # Man Lymphocytes # (Manual) Eosinophils # (Manual) D-Dimer ABG pH POC ABG pCO2 POC ABG pO2 ABG pO2 ABG HCO3 ABG O2 Saturation ABG Base Excess ABG Hemoglobin ABG Oxyhemoglobin ABG Sodium ABG Potassium ABG Chloride ABG Glucose Oxyhemoglobin Carboxyhemoglobin Sodium 151 H Potassium 5.5 H Chloride 118.2 H Carbon Dioxide BUN 52 H Creatinine 2.2 H Glucose 224 H POC Glucose 181 H 203 H Hemoglobin A1c Lactic Acid Calcium 8.0 L Phosphorus Magnesium Ferritin Total Bilirubin AST ALT Lactate Dehydrogenase C-Reactive Protein Albumin Triglycerides Arterial Blood Glucose Arterial Blood Ionized Calcium Urine Creatinine Coronavirus (PCR) 01/29/21 01/29/21 01/29/21 18:13 23:34 Unknown WBC RBC Hgb Hct MCV 101 H MCH MCHC RDW 15.7 H Plt Count Lymph % (Auto) Lymph # (Auto) Seg Neutrophils % Seg Neuts % (Manual) 95.0 H Lymphocytes % (Manual) 3.0 L Seg Neutrophils # Seg Neutrophils # Man 8.0 H Lymphocytes # (Manual) 0.3 L Eosinophils # (Manual) D-Dimer ABG pH 7.223 L POC ABG pCO2 64.8 H POC ABG pO2 63.6 L ABG pO2 ABG HCO3 ABG O2 Saturation ABG Base Excess ABG Hemoglobin ABG Oxyhemoglobin 89.4 L ABG Sodium 152.9 H ABG Potassium 5.3 H ABG Chloride 121.0 H ABG Glucose 227 H Oxyhemoglobin Carboxyhemoglobin Sodium Potassium Chloride Carbon Dioxide BUN Creatinine Glucose POC Glucose 198 H Hemoglobin A1c Lactic Acid Calcium Phosphorus Magnesium Ferritin Total Bilirubin AST ALT Lactate Dehydrogenase C-Reactive Protein Albumin Triglycerides Arterial Blood Glucose 227 H Arterial Blood Ionized Calcium Urine Creatinine Coronavirus (PCR) 01/30/21 01/30/21 01/30/21 04:00 04:00 04:00 WBC RBC Hgb Hct MCV MCH MCHC RDW Plt Count Lymph % (Auto) Lymph # (Auto) Seg Neutrophils % Seg Neuts % (Manual) Lymphocytes % (Manual) Seg Neutrophils # Seg Neutrophils # Man Lymphocytes # (Manual) Eosinophils # (Manual) D-Dimer > 27760 H ABG pH POC ABG pCO2 POC ABG pO2 ABG pO2 ABG HCO3 ABG O2 Saturation ABG Base Excess ABG Hemoglobin ABG Oxyhemoglobin ABG Sodium ABG Potassium ABG Chloride ABG Glucose Oxyhemoglobin Carboxyhemoglobin Sodium Potassium Chloride Carbon Dioxide BUN Creatinine Glucose 234 H POC Glucose Hemoglobin A1c Lactic Acid Calcium Phosphorus Magnesium Ferritin 763.9 H Total Bilirubin AST ALT Lactate Dehydrogenase 424 H C-Reactive Protein 23.90 H Albumin Triglycerides Arterial Blood Glucose Arterial Blood Ionized Calcium Urine Creatinine Coronavirus (PCR) 01/30/21 01/30/21 01/30/21 04:24 05:00 05:16 WBC RBC 3.57 L Hgb 11.3 L Hct 35.4 L MCV 99 H MCH MCHC RDW 15.6 H Plt Count Lymph % (Auto) Lymph # (Auto) Seg Neutrophils % Seg Neuts % (Manual) 97.0 H Lymphocytes % (Manual) 1.0 L Seg Neutrophils # Seg Neutrophils # Man 8.6 H Lymphocytes # (Manual) 0.1 L Eosinophils # (Manual) D-Dimer ABG pH 7.235 L POC ABG pCO2 69.7 H POC ABG pO2 61.0 L ABG pO2 ABG HCO3 ABG O2 Saturation ABG Base Excess ABG Hemoglobin ABG Oxyhemoglobin 89 L ABG Sodium 154.2 H ABG Potassium 5.4 H ABG Chloride 121.0 H ABG Glucose 247 H Oxyhemoglobin Carboxyhemoglobin Sodium Potassium Chloride Carbon Dioxide BUN Creatinine Glucose POC Glucose 238 H Hemoglobin A1c Lactic Acid Calcium Phosphorus Magnesium Ferritin Total Bilirubin AST ALT Lactate Dehydrogenase C-Reactive Protein Albumin Triglycerides Arterial Blood Glucose 247 H Arterial Blood Ionized Calcium Urine Creatinine Coronavirus (PCR) 01/30/21 01/30/21 01/30/21 06:00 11:28 12:00 WBC RBC Hgb Hct MCV MCH MCHC RDW Plt Count Lymph % (Auto) Lymph # (Auto) Seg Neutrophils % Seg Neuts % (Manual) Lymphocytes % (Manual) Seg Neutrophils # Seg Neutrophils # Man Lymphocytes # (Manual) Eosinophils # (Manual) D-Dimer ABG pH POC ABG pCO2 POC ABG pO2 ABG pO2 ABG HCO3 ABG O2 Saturation ABG Base Excess ABG Hemoglobin ABG Oxyhemoglobin ABG Sodium ABG Potassium ABG Chloride ABG Glucose Oxyhemoglobin Carboxyhemoglobin Sodium 152 H Potassium 5.3 H Chloride 120.5 H Carbon Dioxide BUN 50 H Creatinine 2.3 H Glucose 239 H POC Glucose 153 H Hemoglobin A1c Lactic Acid Calcium 8.2 L Phosphorus Magnesium 2.60 H Ferritin Total Bilirubin AST ALT Lactate Dehydrogenase C-Reactive Protein Albumin Triglycerides 293 H Arterial Blood Glucose Arterial Blood Ionized Calcium Urine Creatinine 53.0 H Coronavirus (PCR) 01/30/21 01/30/21 01/31/21 18:49 23:06 04:00 WBC RBC Hgb Hct MCV MCH MCHC RDW Plt Count Lymph % (Auto) Lymph # (Auto) Seg Neutrophils % Seg Neuts % (Manual) Lymphocytes % (Manual) Seg Neutrophils # Seg Neutrophils # Man Lymphocytes # (Manual) Eosinophils # (Manual) D-Dimer ABG pH POC ABG pCO2 POC ABG pO2 ABG pO2 ABG HCO3 ABG O2 Saturation ABG Base Excess ABG Hemoglobin ABG Oxyhemoglobin ABG Sodium ABG Potassium ABG Chloride ABG Glucose Oxyhemoglobin Carboxyhemoglobin Sodium 156 H Potassium 5.9 H Chloride 122.6 H Carbon Dioxide BUN 61 H Creatinine 3.2 H Glucose 205 H POC Glucose 220 H 192 H Hemoglobin A1c Lactic Acid Calcium 8.0 L Phosphorus Magnesium Ferritin Total Bilirubin AST ALT Lactate Dehydrogenase C-Reactive Protein Albumin Triglycerides Arterial Blood Glucose Arterial Blood Ionized Calcium Urine Creatinine Coronavirus (PCR) 01/31/21 01/31/21 01/31/21 04:40 05:17 11:33 WBC RBC Hgb Hct MCV MCH MCHC RDW Plt Count Lymph % (Auto) Lymph # (Auto) Seg Neutrophils % Seg Neuts % (Manual) Lymphocytes % (Manual) Seg Neutrophils # Seg Neutrophils # Man Lymphocytes # (Manual) Eosinophils # (Manual) D-Dimer ABG pH 7.161 L* POC ABG pCO2 POC ABG pO2 ABG pO2 142.2 H ABG HCO3 28.3 H ABG O2 Saturation ABG Base Excess -3.2 L ABG Hemoglobin ABG Oxyhemoglobin ABG Sodium ABG Potassium ABG Chloride ABG Glucose Oxyhemoglobin Carboxyhemoglobin Sodium Potassium Chloride Carbon Dioxide BUN Creatinine Glucose POC Glucose 200 H 167 H Hemoglobin A1c Lactic Acid Calcium Phosphorus Magnesium Ferritin Total Bilirubin AST ALT Lactate Dehydrogenase C-Reactive Protein Albumin Triglycerides Arterial Blood Glucose Arterial Blood Ionized Calcium Urine Creatinine Coronavirus (PCR) 01/31/21 01/31/21 01/31/21 14:00 17:10 23:24 WBC RBC Hgb Hct MCV MCH MCHC RDW Plt Count Lymph % (Auto) Lymph # (Auto) Seg Neutrophils % Seg Neuts % (Manual) Lymphocytes % (Manual) Seg Neutrophils # Seg Neutrophils # Man Lymphocytes # (Manual) Eosinophils # (Manual) D-Dimer ABG pH 7.205 L POC ABG pCO2 POC ABG pO2 ABG pO2 90.9 H ABG HCO3 26.5 H ABG O2 Saturation ABG Base Excess -2.7 L ABG Hemoglobin 12.3 L ABG Oxyhemoglobin ABG Sodium ABG Potassium ABG Chloride ABG Glucose Oxyhemoglobin 93.9 L Carboxyhemoglobin Sodium Potassium Chloride Carbon Dioxide BUN Creatinine Glucose POC Glucose 190 H 203 H Hemoglobin A1c Lactic Acid Calcium Phosphorus Magnesium Ferritin Total Bilirubin AST ALT Lactate Dehydrogenase C-Reactive Protein Albumin Triglycerides Arterial Blood Glucose Arterial Blood Ionized Calcium Urine Creatinine Coronavirus (PCR) 02/01/21 02/01/21 02/01/21 05:15 06:22 10:20 WBC RBC Hgb Hct MCV MCH MCHC RDW Plt Count Lymph % (Auto) Lymph # (Auto) Seg Neutrophils % Seg Neuts % (Manual) Lymphocytes % (Manual) Seg Neutrophils # Seg Neutrophils # Man Lymphocytes # (Manual) Eosinophils # (Manual) D-Dimer ABG pH 6.920 L* 7.116 L* POC ABG pCO2 POC ABG pO2 ABG pO2 102.9 H 113.1 H ABG HCO3 28.2 H ABG O2 Saturation 92.9 L ABG Base Excess -6.9 L -5.8 L ABG Hemoglobin 11.6 L 9.5 L ABG Oxyhemoglobin ABG Sodium ABG Potassium ABG Chloride ABG Glucose Oxyhemoglobin 90.5 L 94.6 L Carboxyhemoglobin Sodium Potassium Chloride Carbon Dioxide BUN Creatinine Glucose POC Glucose 221 H Hemoglobin A1c Lactic Acid Calcium Phosphorus Magnesium Ferritin Total Bilirubin AST ALT Lactate Dehydrogenase C-Reactive Protein Albumin Triglycerides Arterial Blood Glucose Arterial Blood Ionized Calcium Urine Creatinine Coronavirus (PCR) 02/01/21 02/01/21 02/01/21 11:12 12:35 16:00 WBC RBC Hgb Hct MCV MCH MCHC RDW Plt Count Lymph % (Auto) Lymph # (Auto) Seg Neutrophils % Seg Neuts % (Manual) Lymphocytes % (Manual) Seg Neutrophils # Seg Neutrophils # Man Lymphocytes # (Manual) Eosinophils # (Manual) D-Dimer ABG pH 7.155 L* POC ABG pCO2 POC ABG pO2 ABG pO2 94.6 H ABG HCO3 ABG O2 Saturation ABG Base Excess -6.5 L ABG Hemoglobin 13.1 L ABG Oxyhemoglobin ABG Sodium ABG Potassium ABG Chloride ABG Glucose Oxyhemoglobin 93.7 L Carboxyhemoglobin Sodium 155 H Potassium 5.1 H Chloride 120.5 H Carbon Dioxide BUN 90 H Creatinine 6.1 H D Glucose 238 H POC Glucose 207 H Hemoglobin A1c Lactic Acid Calcium 7.4 L Phosphorus Magnesium Ferritin Total Bilirubin AST ALT Lactate Dehydrogenase C-Reactive Protein Albumin Triglycerides Arterial Blood Glucose Arterial Blood Ionized Calcium Urine Creatinine Coronavirus (PCR) 02/01/21 02/01/21 02/02/21 17:10 23:47 04:04 WBC RBC 3.02 L Hgb 9.8 L Hct 30.7 L MCV 102 H MCH MCHC RDW 15.6 H Plt Count Lymph % (Auto) 4.2 L Lymph # (Auto) 0.3 L Seg Neutrophils % Seg Neuts % (Manual) Lymphocytes % (Manual) Seg Neutrophils # Seg Neutrophils # Man Lymphocytes # (Manual) Eosinophils # (Manual) D-Dimer ABG pH POC ABG pCO2 POC ABG pO2 ABG pO2 ABG HCO3 ABG O2 Saturation ABG Base Excess ABG Hemoglobin ABG Oxyhemoglobin ABG Sodium ABG Potassium ABG Chloride ABG Glucose Oxyhemoglobin Carboxyhemoglobin Sodium Potassium Chloride Carbon Dioxide BUN Creatinine Glucose POC Glucose 238 H 235 H Hemoglobin A1c Lactic Acid Calcium Phosphorus Magnesium Ferritin Total Bilirubin AST ALT Lactate Dehydrogenase C-Reactive Protein Albumin Triglycerides Arterial Blood Glucose Arterial Blood Ionized Calcium Urine Creatinine Coronavirus (PCR) 02/02/21 02/02/21 02/02/21 05:18 05:35 11:28 WBC RBC Hgb Hct MCV MCH MCHC RDW Plt Count Lymph % (Auto) Lymph # (Auto) Seg Neutrophils % Seg Neuts % (Manual) Lymphocytes % (Manual) Seg Neutrophils # Seg Neutrophils # Man Lymphocytes # (Manual) Eosinophils # (Manual) D-Dimer ABG pH 7.195 L* POC ABG pCO2 POC ABG pO2 ABG pO2 72.5 L ABG HCO3 ABG O2 Saturation 91.2 L ABG Base Excess -5.3 L ABG Hemoglobin 6.0 L ABG Oxyhemoglobin ABG Sodium ABG Potassium ABG Chloride ABG Glucose Oxyhemoglobin 89.1 L Carboxyhemoglobin Sodium Potassium Chloride 110.4 H Carbon Dioxide BUN 92 H Creatinine Glucose POC Glucose 239 H Hemoglobin A1c Lactic Acid Calcium Phosphorus Magnesium Ferritin Total Bilirubin AST ALT Lactate Dehydrogenase C-Reactive Protein Albumin Triglycerides Arterial Blood Glucose Arterial Blood Ionized Calcium Urine Creatinine Coronavirus (PCR) 02/02/21 02/02/21 02/02/21 11:53 16:00 18:04 WBC RBC Hgb Hct MCV MCH MCHC RDW Plt Count Lymph % (Auto) Lymph # (Auto) Seg Neutrophils % Seg Neuts % (Manual) Lymphocytes % (Manual) Seg Neutrophils # Seg Neutrophils # Man Lymphocytes # (Manual) Eosinophils # (Manual) D-Dimer ABG pH POC ABG pCO2 POC ABG pO2 ABG pO2 ABG HCO3 ABG O2 Saturation ABG Base Excess ABG Hemoglobin ABG Oxyhemoglobin ABG Sodium ABG Potassium ABG Chloride ABG Glucose Oxyhemoglobin Carboxyhemoglobin Sodium Potassium Chloride Carbon Dioxide BUN Creatinine Glucose POC Glucose 248 H 199 H Hemoglobin A1c 6.3 H Lactic Acid Calcium Phosphorus Magnesium Ferritin Total Bilirubin AST ALT Lactate Dehydrogenase C-Reactive Protein Albumin Triglycerides Arterial Blood Glucose Arterial Blood Ionized Calcium Urine Creatinine Coronavirus (PCR) 02/02/21 02/03/21 02/03/21 23:31 03:12 04:10 WBC RBC 3.06 L Hgb 9.7 L Hct 30.4 L MCV 99 H MCH MCHC RDW 15.3 H Plt Count Lymph % (Auto) 6.1 L Lymph # (Auto) 0.5 L Seg Neutrophils % 86.1 H Seg Neuts % (Manual) Lymphocytes % (Manual) Seg Neutrophils # Seg Neutrophils # Man Lymphocytes # (Manual) Eosinophils # (Manual) D-Dimer ABG pH 7.199 L POC ABG pCO2 48.3 H POC ABG pO2 68.3 L ABG pO2 ABG HCO3 ABG O2 Saturation ABG Base Excess ABG Hemoglobin 10.2 L ABG Oxyhemoglobin 89.2 L ABG Sodium 155.0 H ABG Potassium 4.6 H ABG Chloride 121.0 H ABG Glucose 166 H Oxyhemoglobin Carboxyhemoglobin 0.3 L Sodium Potassium Chloride Carbon Dioxide BUN Creatinine Glucose POC Glucose 200 H Hemoglobin A1c Lactic Acid Calcium Phosphorus Magnesium Ferritin Total Bilirubin AST ALT Lactate Dehydrogenase C-Reactive Protein Albumin Triglycerides Arterial Blood Glucose 166 H Arterial Blood Ionized Calcium 4.1 L Urine Creatinine Coronavirus (PCR) 02/03/21 02/03/21 02/03/21 04:10 05:34 11:51 WBC RBC Hgb Hct MCV MCH MCHC RDW Plt Count Lymph % (Auto) Lymph # (Auto) Seg Neutrophils % Seg Neuts % (Manual) Lymphocytes % (Manual) Seg Neutrophils # Seg Neutrophils # Man Lymphocytes # (Manual) Eosinophils # (Manual) D-Dimer ABG pH POC ABG pCO2 POC ABG pO2 ABG pO2 ABG HCO3 ABG O2 Saturation ABG Base Excess ABG Hemoglobin ABG Oxyhemoglobin ABG Sodium ABG Potassium ABG Chloride ABG Glucose Oxyhemoglobin Carboxyhemoglobin Sodium 154 H D Potassium Chloride 116.7 H Carbon Dioxide 20 L BUN 130 H Creatinine 9.2 H D Glucose 160 H POC Glucose 130 H 154 H Hemoglobin A1c Lactic Acid Calcium 6.7 L Phosphorus 8.60 H Magnesium Ferritin Total Bilirubin AST ALT Lactate Dehydrogenase C-Reactive Protein Albumin Triglycerides Arterial Blood Glucose Arterial Blood Ionized Calcium Urine Creatinine Coronavirus (PCR) 02/03/21 02/03/21 02/04/21 16:49 23:22 03:48 WBC RBC Hgb Hct MCV MCH MCHC RDW Plt Count Lymph % (Auto) Lymph # (Auto) Seg Neutrophils % Seg Neuts % (Manual) Lymphocytes % (Manual) Seg Neutrophils # Seg Neutrophils # Man Lymphocytes # (Manual) Eosinophils # (Manual) D-Dimer ABG pH 7.201 L POC ABG pCO2 54.5 H POC ABG pO2 74.0 L ABG pO2 ABG HCO3 ABG O2 Saturation ABG Base Excess ABG Hemoglobin 9.7 L ABG Oxyhemoglobin 91.1 L ABG Sodium 146.2 H ABG Potassium ABG Chloride 114.0 H ABG Glucose 155 H Oxyhemoglobin Carboxyhemoglobin Sodium Potassium Chloride Carbon Dioxide BUN Creatinine Glucose POC Glucose 164 H 152 H Hemoglobin A1c Lactic Acid Calcium Phosphorus Magnesium Ferritin Total Bilirubin AST ALT Lactate Dehydrogenase C-Reactive Protein Albumin Triglycerides Arterial Blood Glucose 155 H Arterial Blood Ionized Calcium 3.9 L Urine Creatinine Coronavirus (PCR) 02/04/21 02/04/21 02/04/21 04:45 04:45 04:45 WBC RBC 2.75 L Hgb 9.1 L Hct 26.9 L MCV 98 H MCH 33 H MCHC RDW Plt Count Lymph % (Auto) 6.8 L Lymph # (Auto) 0.5 L Seg Neutrophils % 87.2 H Seg Neuts % (Manual) Lymphocytes % (Manual) Seg Neutrophils # Seg Neutrophils # Man Lymphocytes # (Manual) Eosinophils # (Manual) D-Dimer ABG pH POC ABG pCO2 POC ABG pO2 ABG pO2 ABG HCO3 ABG O2 Saturation ABG Base Excess ABG Hemoglobin ABG Oxyhemoglobin ABG Sodium ABG Potassium ABG Chloride ABG Glucose Oxyhemoglobin Carboxyhemoglobin Sodium 149 H Potassium Chloride 111.5 H Carbon Dioxide BUN 99 H Creatinine 8.5 H Glucose 139 H POC Glucose Hemoglobin A1c Lactic Acid Calcium 6.8 L Phosphorus 8.40 H Magnesium Ferritin Total Bilirubin AST ALT Lactate Dehydrogenase C-Reactive Protein Albumin Triglycerides Arterial Blood Glucose Arterial Blood Ionized Calcium Urine Creatinine Coronavirus (PCR) 02/04/21 02/04/21 02/04/21 06:05 11:44 18:00 WBC RBC Hgb Hct MCV MCH MCHC RDW Plt Count Lymph % (Auto) Lymph # (Auto) Seg Neutrophils % Seg Neuts % (Manual) Lymphocytes % (Manual) Seg Neutrophils # Seg Neutrophils # Man Lymphocytes # (Manual) Eosinophils # (Manual) D-Dimer ABG pH POC ABG pCO2 POC ABG pO2 ABG pO2 ABG HCO3 ABG O2 Saturation ABG Base Excess ABG Hemoglobin ABG Oxyhemoglobin ABG Sodium ABG Potassium ABG Chloride ABG Glucose Oxyhemoglobin Carboxyhemoglobin Sodium Potassium Chloride Carbon Dioxide BUN Creatinine Glucose POC Glucose 138 H 129 H 163 H Hemoglobin A1c Lactic Acid Calcium Phosphorus Magnesium Ferritin Total Bilirubin AST ALT Lactate Dehydrogenase C-Reactive Protein Albumin Triglycerides Arterial Blood Glucose Arterial Blood Ionized Calcium Urine Creatinine Coronavirus (PCR) 02/04/21 02/05/21 02/05/21 23:48 01:50 01:50 WBC RBC 2.43 L Hgb 8.3 L Hct 23.6 L MCV 97 H MCH 34 H MCHC 35 H RDW Plt Count 137 L Lymph % (Auto) 8.4 L Lymph # (Auto) 0.6 L Seg Neutrophils % 86.1 H Seg Neuts % (Manual) Lymphocytes % (Manual) Seg Neutrophils # Seg Neutrophils # Man Lymphocytes # (Manual) Eosinophils # (Manual) D-Dimer ABG pH POC ABG pCO2 POC ABG pO2 ABG pO2 ABG HCO3 ABG O2 Saturation ABG Base Excess ABG Hemoglobin ABG Oxyhemoglobin ABG Sodium ABG Potassium ABG Chloride ABG Glucose Oxyhemoglobin Carboxyhemoglobin Sodium Potassium Chloride Carbon Dioxide BUN Creatinine Glucose POC Glucose 157 H Hemoglobin A1c Lactic Acid Calcium Phosphorus 5.60 H D Magnesium Ferritin Total Bilirubin AST ALT Lactate Dehydrogenase C-Reactive Protein Albumin Triglycerides Arterial Blood Glucose Arterial Blood Ionized Calcium Urine Creatinine Coronavirus (PCR) 02/05/21 02/05/21 02/05/21 03:44 05:27 09:15 WBC RBC Hgb Hct MCV MCH MCHC RDW Plt Count Lymph % (Auto) Lymph # (Auto) Seg Neutrophils % Seg Neuts % (Manual) Lymphocytes % (Manual) Seg Neutrophils # Seg Neutrophils # Man Lymphocytes # (Manual) Eosinophils # (Manual) D-Dimer ABG pH 7.202 L POC ABG pCO2 63.7 H POC ABG pO2 69.0 L ABG pO2 ABG HCO3 ABG O2 Saturation ABG Base Excess ABG Hemoglobin 9.4 L ABG Oxyhemoglobin ABG Sodium ABG Potassium ABG Chloride 108.0 H ABG Glucose 186 H Oxyhemoglobin Carboxyhemoglobin Sodium Potassium Chloride Carbon Dioxide BUN 78 H Creatinine 8.0 H Glucose 163 H POC Glucose 157 H Hemoglobin A1c Lactic Acid Calcium 6.3 L Phosphorus Magnesium Ferritin Total Bilirubin AST ALT Lactate Dehydrogenase C-Reactive Protein Albumin Triglycerides Arterial Blood Glucose 186 H Arterial Blood Ionized Calcium 3.9 L Urine Creatinine Coronavirus (PCR) 02/05/21 02/05/21 02/05/21 11:47 17:39 23:40 WBC RBC Hgb Hct MCV MCH MCHC RDW Plt Count Lymph % (Auto) Lymph # (Auto) Seg Neutrophils % Seg Neuts % (Manual) Lymphocytes % (Manual) Seg Neutrophils # Seg Neutrophils # Man Lymphocytes # (Manual) Eosinophils # (Manual) D-Dimer ABG pH 7.273 L POC ABG pCO2 62.1 H POC ABG pO2 72.0 L ABG pO2 ABG HCO3 ABG O2 Saturation ABG Base Excess ABG Hemoglobin 9.1 L ABG Oxyhemoglobin 91.3 L ABG Sodium ABG Potassium 3.1 L ABG Chloride ABG Glucose 125 H Oxyhemoglobin Carboxyhemoglobin Sodium Potassium Chloride Carbon Dioxide BUN Creatinine Glucose POC Glucose 126 H 126 H Hemoglobin A1c Lactic Acid Calcium Phosphorus Magnesium Ferritin Total Bilirubin AST ALT Lactate Dehydrogenase C-Reactive Protein Albumin Triglycerides Arterial Blood Glucose 125 H Arterial Blood Ionized Calcium 4.0 L Urine Creatinine Coronavirus (PCR) 02/06/21 02/06/21 02/06/21 04:30 04:57 09:45 WBC RBC Hgb Hct MCV MCH MCHC RDW Plt Count Lymph % (Auto) Lymph # (Auto) Seg Neutrophils % Seg Neuts % (Manual) Lymphocytes % (Manual) Seg Neutrophils # Seg Neutrophils # Man Lymphocytes # (Manual) Eosinophils # (Manual) D-Dimer ABG pH 7.159 L 7.138 L* POC ABG pCO2 76.3 H POC ABG pO2 66.9 L ABG pO2 ABG HCO3 ABG O2 Saturation 93.4 L ABG Base Excess -6.0 L ABG Hemoglobin 11.2 L 11.7 L ABG Oxyhemoglobin 88.2 L ABG Sodium ABG Potassium ABG Chloride ABG Glucose 134 H Oxyhemoglobin 91.2 L Carboxyhemoglobin Sodium Potassium Chloride Carbon Dioxide BUN Creatinine Glucose POC Glucose 124 H Hemoglobin A1c Lactic Acid Calcium Phosphorus Magnesium Ferritin Total Bilirubin AST ALT Lactate Dehydrogenase C-Reactive Protein Albumin Triglycerides Arterial Blood Glucose 134 H Arterial Blood Ionized Calcium 3.9 L Urine Creatinine Coronavirus (PCR) 02/06/21 02/06/21 02/06/21 11:11 17:00 17:00 WBC RBC Hgb Hct MCV MCH MCHC RDW Plt Count Lymph % (Auto) Lymph # (Auto) Seg Neutrophils % Seg Neuts % (Manual) Lymphocytes % (Manual) Seg Neutrophils # Seg Neutrophils # Man Lymphocytes # (Manual) Eosinophils # (Manual) D-Dimer ABG pH 7.158 L* POC ABG pCO2 POC ABG pO2 ABG pO2 109.8 H ABG HCO3 28.7 H ABG O2 Saturation ABG Base Excess -2.5 L ABG Hemoglobin ABG Oxyhemoglobin ABG Sodium ABG Potassium ABG Chloride ABG Glucose Oxyhemoglobin 94.5 L Carboxyhemoglobin Sodium Potassium Chloride Carbon Dioxide BUN Creatinine Glucose POC Glucose 120 H Hemoglobin A1c Lactic Acid Calcium Phosphorus Magnesium Ferritin Total Bilirubin AST ALT Lactate Dehydrogenase C-Reactive Protein Albumin Triglycerides 503 H Arterial Blood Glucose Arterial Blood Ionized Calcium Urine Creatinine Coronavirus (PCR) 02/06/21 02/06/21 02/06/21 17:28 20:16 Unknown WBC 13.5 H RBC 2.98 L Hgb 9.3 L Hct 28.6 L MCV 96 H MCH MCHC RDW Plt Count Lymph % (Auto) Lymph # (Auto) Seg Neutrophils % Seg Neuts % (Manual) 87.0 H Lymphocytes % (Manual) 7.0 L Seg Neutrophils # Seg Neutrophils # Man 11.7 H Lymphocytes # (Manual) 0.9 L Eosinophils # (Manual) 0.5 H D-Dimer ABG pH POC ABG pCO2 POC ABG pO2 ABG pO2 ABG HCO3 ABG O2 Saturation ABG Base Excess ABG Hemoglobin ABG Oxyhemoglobin ABG Sodium ABG Potassium ABG Chloride ABG Glucose Oxyhemoglobin Carboxyhemoglobin Sodium Potassium Chloride Carbon Dioxide BUN Creatinine Glucose POC Glucose 147 H 164 H Hemoglobin A1c Lactic Acid Calcium Phosphorus Magnesium Ferritin Total Bilirubin AST ALT Lactate Dehydrogenase C-Reactive Protein Albumin Triglycerides Arterial Blood Glucose Arterial Blood Ionized Calcium Urine Creatinine Coronavirus (PCR) 02/06/21 02/07/21 02/07/21 Unknown : 04:00 WBC 12.0 H RBC 2.61 L Hgb 8.2 L Hct 24.5 L MCV MCH MCHC RDW Plt Count Lymph % (Auto) 8.9 L Lymph # (Auto) 1.1 L Seg Neutrophils % 86.3 H Seg Neuts % (Manual) Lymphocytes % (Manual) Seg Neutrophils # 10.3 H Seg Neutrophils # Man Lymphocytes # (Manual) Eosinophils # (Manual) D-Dimer ABG pH POC ABG pCO2 POC ABG pO2 ABG pO2 ABG HCO3 ABG O2 Saturation ABG Base Excess ABG Hemoglobin ABG Oxyhemoglobin ABG Sodium ABG Potassium ABG Chloride ABG Glucose Oxyhemoglobin Carboxyhemoglobin Sodium Potassium 3.5 L Chloride Carbon Dioxide BUN 58 H Creatinine 6.6 H Glucose 107 H POC Glucose 173 H Hemoglobin A1c Lactic Acid Calcium 6.7 L Phosphorus 8.00 H D Magnesium Ferritin Total Bilirubin AST ALT Lactate Dehydrogenase C-Reactive Protein Albumin Triglycerides Arterial Blood Glucose Arterial Blood Ionized Calcium Urine Creatinine Coronavirus (PCR) 02/07/21 02/07/21 02/07/21 04:00 04:45 11:49 WBC RBC Hgb Hct MCV MCH MCHC RDW Plt Count Lymph % (Auto) Lymph # (Auto) Seg Neutrophils % Seg Neuts % (Manual) Lymphocytes % (Manual) Seg Neutrophils # Seg Neutrophils # Man Lymphocytes # (Manual) Eosinophils # (Manual) D-Dimer ABG pH 7.287 L POC ABG pCO2 64.8 H POC ABG pO2 74.0 L ABG pO2 ABG HCO3 ABG O2 Saturation ABG Base Excess ABG Hemoglobin 9.1 L ABG Oxyhemoglobin 92.0 L ABG Sodium ABG Potassium 2.8 L ABG Chloride ABG Glucose 226 H Oxyhemoglobin Carboxyhemoglobin Sodium Potassium Chloride Carbon Dioxide BUN Creatinine Glucose POC Glucose 170 H Hemoglobin A1c Lactic Acid Calcium Phosphorus 5.50 H D Magnesium Ferritin Total Bilirubin AST ALT Lactate Dehydrogenase C-Reactive Protein Albumin Triglycerides Arterial Blood Glucose 226 H Arterial Blood Ionized Calcium 3.7 L Urine Creatinine Coronavirus (PCR) 02/07/21 02/07/21 02/07/21 13:48 17:45 23:02 WBC RBC Hgb Hct MCV MCH MCHC RDW Plt Count Lymph % (Auto) Lymph # (Auto) Seg Neutrophils % Seg Neuts % (Manual) Lymphocytes % (Manual) Seg Neutrophils # Seg Neutrophils # Man Lymphocytes # (Manual) Eosinophils # (Manual) D-Dimer ABG pH POC ABG pCO2 POC ABG pO2 ABG pO2 ABG HCO3 ABG O2 Saturation ABG Base Excess ABG Hemoglobin ABG Oxyhemoglobin ABG Sodium ABG Potassium ABG Chloride ABG Glucose Oxyhemoglobin Carboxyhemoglobin Sodium 136 L Potassium 2.6 L* D Chloride 95.1 L Carbon Dioxide 33 H D BUN 30 H Creatinine 3.6 H Glucose 184 H POC Glucose 172 H 172 H Hemoglobin A1c Lactic Acid Calcium 6.9 L Phosphorus Magnesium Ferritin Total Bilirubin AST ALT Lactate Dehydrogenase C-Reactive Protein Albumin Triglycerides Arterial Blood Glucose Arterial Blood Ionized Calcium Urine Creatinine Coronavirus (PCR) 02/08/21 02/08/21 02/08/21 05:22 06:00 06:00 WBC RBC 2.21 L Hgb 7.2 L Hct 21.0 L MCV 95 H MCH MCHC RDW Plt Count Lymph % (Auto) Lymph # (Auto) Seg Neutrophils % Seg Neuts % (Manual) Lymphocytes % (Manual) Seg Neutrophils # Seg Neutrophils # Man Lymphocytes # (Manual) Eosinophils # (Manual) D-Dimer ABG pH POC ABG pCO2 POC ABG pO2 ABG pO2 ABG HCO3 ABG O2 Saturation ABG Base Excess ABG Hemoglobin ABG Oxyhemoglobin ABG Sodium ABG Potassium ABG Chloride ABG Glucose Oxyhemoglobin Carboxyhemoglobin Sodium 136 L Potassium 2.4 L* Chloride 93.1 L Carbon Dioxide 36 H BUN 43 H Creatinine 5.4 H Glucose 167 H POC Glucose 162 H Hemoglobin A1c Lactic Acid Calcium 6.3 L Phosphorus Magnesium Ferritin Total Bilirubin AST ALT Lactate Dehydrogenase C-Reactive Protein Albumin Triglycerides Arterial Blood Glucose Arterial Blood Ionized Calcium Urine Creatinine Coronavirus (PCR) 02/08/21 23:58 WBC RBC Hgb Hct MCV MCH MCHC RDW Plt Count Lymph % (Auto) Lymph # (Auto) Seg Neutrophils % Seg Neuts % (Manual) Lymphocytes % (Manual) Seg Neutrophils # Seg Neutrophils # Man Lymphocytes # (Manual) Eosinophils # (Manual) D-Dimer ABG pH POC ABG pCO2 63.3 H POC ABG pO2 71.2 L ABG pO2 ABG HCO3 ABG O2 Saturation ABG Base Excess ABG Hemoglobin 8.2 L ABG Oxyhemoglobin 91.8 L ABG Sodium 134.6 L ABG Potassium 2.3 L ABG Chloride 96.0 L ABG Glucose 184 H Oxyhemoglobin Carboxyhemoglobin Sodium Potassium Chloride Carbon Dioxide BUN Creatinine Glucose POC Glucose Hemoglobin A1c Lactic Acid Calcium Phosphorus Magnesium Ferritin Total Bilirubin AST ALT Lactate Dehydrogenase C-Reactive Protein Albumin Triglycerides Arterial Blood Glucose 184 H Arterial Blood Ionized Calcium 3.6 L Urine Creatinine Coronavirus (PCR)
--- NOTE | 2021-02-08 12:24 | Progress Note ---
Assessment and Plan Cultures: Blood culture no growth today SARS CoV2 PCR positive 01/22/2021 respiratory culture: Usual respiratory dillon Blood Culture 01/30/2021 no growth today Urine culture 01/30/2021 no growth today Sputum culture 01/30/2021 usual respiratory dillon Blood culture 02/04/2021 GPC 2 of 4 Urine culture 02/04/2021 no growth Sputum culture 02/04/2021 Maegan albicans Assessment: 60 year old male with history of morbid obesity admitted on 01/22/2021 secondary to 3-day history of worsening shortness of breath associated with fever, chills, loss of smell and taste: #Severe sepsis with septic shock: remains with intermittent high fever now off pressors. Right IJ removed. Likely due to GPC bacteremia. Initial sepsis due to bilateral pneumonia. Urinalysis negative. Procalcitonin elevated in the setting of DEISI. Leg US no DVT. #Coag-neg Staph bacteremia: new blood culture on 02/04/2021 with GPC 2 of 4 bottles, possible real. #Critical COVID-19 pneumonia: Patient remains intubated. Chest x-ray with bilateral airspace disease. Inflammatory markers worsening, D-dimer>10K. CRP 40-->23. Completed remdesivir. #Acute respiratory failure: Remains on the ventilator #Transaminitis: Likely secondary to COVID-19. #DEISI: Worsening, On hemodialysis Recommendations: -Repeat blod cx today -PICC line to be removed -Stop cefepime renally adjusted D10 of 10, extended -Continue vancomycin D4 for GPC bacteremia -F/u blood cx ID and RUSTAM -Monitor fever Very guarded prognosis Will follow Jami Laird MD Infectious Diseases Subsorter [facility] M [phone] O [phone] Subjective Date of service: 02/08/21 Principal diagnosis: DEISI Interval history: Patient remains intubated, sedated on fentanyl and propofol, noted fever 101.8, off Levophed drip Objective - Exam Narrative Exam: General appearance: Sedated, intubated Eyes: anicteric sclerae, moist conjunctivae; no lid-lag; PERRLA HENT: Normocephalic, Atraumatic; normal external ears, nares open, oropharynx limited Neck: supple, tracheal midline, no JVD Lungs: Bilateral coarse breath sounds CV: Tachycardic Abdomen: Soft, obese, nontender Extremities: Bilateral leg edema Skin: No rash. Psych: Sedated Neuro: Sedated right PICC line - Constitutional Vitals: Vital Signs Temp Pulse Resp BP Pulse Ox 99.9 F H 96 H 32 H 106/62 94 02/08/21 12:08 02/08/21 11:08 02/08/21 09:15 02/08/21 11:08 02/08/21 09:15 Temperature -Last 24 Hours Temperature 99.9 F Temperature 100.3 F Temperature 100.3 F Temperature 101.8 F Temperature 100.8 F Temperature 99.4 F Temperature 99.0 F Temperature 98.8 F - Labs CBC & Chem 7: 02/08/21 06:00 02/08/21 06:00 Labs: Abnormal lab results 02/07/21 02/07/21 02/07/21 Range/Units 04:45 13:48 17:45 RBC (3.65-5.03) M/mm3 Hgb (11.8-15.2) gm/dl Hct (35.5-45.6) % MCV (84-94) fl ABG pH 7.287 L (7.320-7.450) POC ABG pCO2 64.8 H (32.0-48.0) mmHg POC ABG pO2 74.0 L (83-108) mmHg ABG Hemoglobin 9.1 L (12.0-17.5) ABG Oxyhemoglobin 92.0 L (94-98) ABG Sodium (136.0-145.0) mmol/L ABG Potassium 2.8 L (3.40-4.50) mmol/L ABG Chloride (98-107) mmol/L ABG Glucose 226 H (65-95) mg/dL Sodium 136 L (137-145) mmol/L Potassium 2.6 L* D (3.6-5.0) mmol/L Chloride 95.1 L (98-107) mmol/L Carbon Dioxide 33 H D (22-30) mmol/L BUN 30 H (9-20) mg/dL Creatinine 3.6 H (0.8-1.3) mg/dL Glucose 184 H (75-100) mg/dL POC Glucose 172 H (70-105) mg/dL Calcium 6.9 L (8.4-10.2) mg/dL Arterial Blood Glucose 226 H (65-95) mg/dL Arterial Blood Ionized Calcium 3.7 L (4.6-5.3) mg/dL 02/07/21 02/08/21 02/08/21 Range/Units 23:02 05:22 06:00 RBC 2.21 L (3.65-5.03) M/mm3 Hgb 7.2 L (11.8-15.2) gm/dl Hct 21.0 L (35.5-45.6) % MCV 95 H (84-94) fl ABG pH (7.320-7.450) POC ABG pCO2 (32.0-48.0) mmHg POC ABG pO2 (83-108) mmHg ABG Hemoglobin (12.0-17.5) ABG Oxyhemoglobin (94-98) ABG Sodium (136.0-145.0) mmol/L ABG Potassium (3.40-4.50) mmol/L ABG Chloride (98-107) mmol/L ABG Glucose (65-95) mg/dL Sodium (137-145) mmol/L Potassium (3.6-5.0) mmol/L Chloride (98-107) mmol/L Carbon Dioxide (22-30) mmol/L BUN (9-20) mg/dL Creatinine (0.8-1.3) mg/dL Glucose (75-100) mg/dL POC Glucose 172 H 162 H (70-105) mg/dL Calcium (8.4-10.2) mg/dL Arterial Blood Glucose (65-95) mg/dL Arterial Blood Ionized Calcium (4.6-5.3) mg/dL 02/08/21 02/08/21 Range/Units 06:00 23:58 RBC (3.65-5.03) M/mm3 Hgb (11.8-15.2) gm/dl Hct (35.5-45.6) % MCV (84-94) fl ABG pH (7.320-7.450) POC ABG pCO2 63.3 H (32.0-48.0) mmHg POC ABG pO2 71.2 L (83-108) mmHg ABG Hemoglobin 8.2 L (12.0-17.5) ABG Oxyhemoglobin 91.8 L (94-98) ABG Sodium 134.6 L (136.0-145.0) mmol/L ABG Potassium 2.3 L (3.40-4.50) mmol/L ABG Chloride 96.0 L (98-107) mmol/L ABG Glucose 184 H (65-95) mg/dL Sodium 136 L (137-145) mmol/L Potassium 2.4 L* (3.6-5.0) mmol/L Chloride 93.1 L (98-107) mmol/L Carbon Dioxide 36 H (22-30) mmol/L BUN 43 H (9-20) mg/dL Creatinine 5.4 H (0.8-1.3) mg/dL Glucose 167 H (75-100) mg/dL POC Glucose (70-105) mg/dL Calcium 6.3 L (8.4-10.2) mg/dL Arterial Blood Glucose 184 H (65-95) mg/dL Arterial Blood Ionized Calcium 3.6 L (4.6-5.3) mg/dL
[2021-02-08 14:26] LABS: Anisocytosis 1+; Band Neutrophils # (Manual) 0.5 K/mm3; Hypochromasia 3+; Large Platelets Few; Macrocytosis 1+; Platelet Estimate Consistent w Auto; Total Cells Counted 100
[2021-02-08] MEDS: CEFEPIME/NS 2 GM/100 ML 2 GM/100 ML BAG IV SCH (21:30)
[2021-02-08] MEDS: ACETAMINOPHEN 325 MG/10.15 ML ORAL LIQD UNIT DOSE FEEDTUBE PRN (21:30)
[2021-02-09] MEDS: dexmedeTOMIDine 1,000 MCG in SODIUM CHLORIDE 0.9% 250ML 250 ML IV SCH ×4 (00:02→18:08)
[2021-02-09] MEDS: ACETAMINOPHEN 325 MG/10.15 ML ORAL LIQD UNIT DOSE FEEDTUBE PRN (04:06)
[2021-02-09] MEDS: SODIUM BICARBONATE 150 MEQ in DEXTROSE 5% IN WATER 1,000 ML IV SCH ×2 (05:01→14:46)
[2021-02-09] MEDS: fentaNYL DRIP Premix 2,000 MCG/100 ML BAG IV SCH ×5 (06:19→22:16)
[2021-02-09 06:49] LABS: Hematocrit 20.5 % (35.5-45.6); Mean Corpuscular HGB Conc 34 % (32-34); Mean Corpuscular Volume 96 fl (84-94); Platelet Count 185 K/mm3 (140-440); Red Blood Count 2.14 M/mm3 (3.65-5.03); Red Cell Distribution Width 13.6 % (13.2-15.2)
[2021-02-09 06:53] LABS: Calcium 6.2 mg/dL (8.4-10.2)
--- NOTE | 2021-02-09 08:53 | Progress Note ---
Assessment and Plan 60 y/o male with ARDS secondary most likely to COVID 19 pneumonia. 02/09/21: Repeat Triglycerides today. Follow up repeat blood cultures. Given continued fever will hold on replacing vascath today. If fever free the next 24 hours, can place in the morning or Tuesday morning. Will likely need blood with next HD session. Continue bicarb drip to help manage respiratory as well as metabolic acidosis. Wean FiO2 for sats >88% and PaO2 >55. Overall prognosis remains guarded to poor. 02/08/21: Picc out today. Will repeat culture if patient spikes again today. Plan to replace HD catheter either late tomorrow or Tuesday. Continue current level of sedation. Abx therapy per ID. Wean FiO2 as tolerated, doubt will be able to do much until we can resume HD. Guarded prognosis. Replaced potassium. Will need to check in the morning. Will repeat K later this afternoon. 02/07/21: Biggest issue now is that patient's numbers are better with HD but now with bacteremia, concern for line infection. ID is correct in requesting line holiday. Has a picc and an Right IJ Dialysis catheter with 3 ports. Currently getting HD today. Have not seen renal yet. Will pull right IJ line post HD and plan to replace it Tuesday evening or Tuesday. Continue bicarb drip for now and will keep picc as patient has been requiring levophed. If able to be weaned off levophed, will remove picc either tomorrow or Tuesday. Continue Ativan, Precedex and Fent drips, repeat Triglycerides on Tuesday. Very very guarded prognosis. Will remove Black today as well. 02/06/21: Will add bicarb drip at 125/hr. Giving 2 amps of NaHCO3 push now. Will repeat ABG this afternoon, may just ask for Art Line if possible. HD today per renal and I spoke with them about the bicarb drip. Long discussion with Sister, Significant and other and another family member on the phone on yesterday. I tried my best to explain the severity of the clinical state but not sure if they fully understood. The patient is very very ill and history suggests that his outcome will be poor (intubated with covid and renal failure on dialysis). This was expressed with the family. Will continue all supportive measures. Checking triglyceride levels today. 02/05/21: WIll increase PEEP to 16. Can increase pressors if needed for BP control during HD. Follow up cultures. If negative will scan legs and arms again for VTE. Repeat ABG at 1400 today. Will speak with sister and Girlfriend on phone today. 02/04/21: HD again today per renal notes. Likely will need daily HD. New fevers. Will draw blood and urine cultures if able to still make urine.. Repeat CXR. May need to check dopplers if all of those studies are negative. Wean FIO2 as tolerated. Unable to tolerate proning. Guarded to poor prognosis. 02/03/21: HD today per renal. Wean FiO2 as tolerated. No further proning as patient cannot tolerate it, however with volume removal, may consider in the future. Use pressors to keep MAPs 65 and greater for HD purporses so volume can be removed. (IJ was wide open (filled with blood)) with patient sitting up at 45 degrees. Guarded prognosis. 02/02/21: After renal speaks with family, will place vascath today. Agree with bicarb drip but will order some pushes now to help with pH. Overall prognosis is very very guarded to poor now that patient is COVID positive and requiring renal replacement therapy. Mortality is very high in these patients. Continue steroid therapy. Unable to tolerate proning. 01/30/21: Will plan for proning later today. Goal will be at least 12hrs but long is okay. Speaking with pharmacy to see if we can get paralytic for a longer period of time. Regardless will prone. Continue heavy sedation. BP stable. Continue steroids. Very very guarded prognosis. 01/29/21: will increase tidal volume and/or increase respiratory rate. Repeat ABG this afternoon. Continue paralytic and adequate sedation. Continue steroid and remdesivir, follow up any renal recs. Prognosis remains guarded. Wean Fio2 for sats >88% 01/28/21: Increased PEEP to 16. Will paralyze patient today and increase sedation. Ordering picc line for possible vasopressor therapy needs. Continue BID steroids. Renal function is slightly better today with fluids but could be making oxygenation worse. Not able to diurese. Still making urine. Continue Remdesivir. Watch for fever curve. If not improvement in the next 24 hours with paralyzing, will prone tomorrow morning. 01/27/21: Continue PEEP at 14. No weaning until FiO2 is at or below 40-45%. Continue anticoagulation. Getting Remdesivir now. Continue BID steroids. Renal has increased the fluids. Monitor urine output and renal function. Overall prognosis is very very guarded, especially if renal status worsens. 01/26/21: Increase PEEP to 14. Will add Precedex therapy. If patient does not respond to increases in PEEP may need to prone. Will place patient on lovenox and will feed patient. Remdesivir coming. Continue BID steroids. Prognosis is guarded. 01/25/21: Hold on proning today. Continue BID steroids. ABG this AM was adequate. Pending abg tomorrow, may increase PEEP if not able to wean FiO2 any further. Per charting Remdesivir to arrive tomorrow. Guarded prognosis. 01/24/21: Continue BID steroids. No abg done this am but able to wean FiO2. Will obtain ABG in the am. Hold on proning for right now. Renal following, would like to diurese but they are given fluids for deisi. Agree with ID assessment and note. Guarded prognosis. 1. Increase steroids to BID given size 2. Check with ID to see if he is a candidate for remdesivir or any other experiemental therapy 3. Hold on proning for right now 4. Renal consulted and giving IVF's currently Guarded prognosis. CCT 31 minutes. Subjective Date of service: 02/09/21 Principal diagnosis: DEISI Interval history: Spiked another temp early this am to 101. Picc removed on yesterday. HgB is 7 this am. BP is stable. Not on pressors. has peripheral IV's. Remainder is negative. Sedation remains the same. Objective Vital Signs - 12hr 02/08/21 02/08/21 02/08/21 21:00 21:15 21:30 Temperature Pulse Rate 92 H 93 H 91 H Pulse Rate [ From Monitor] Respiratory 34 H 34 H 34 H Rate Blood Pressure 100/52 100/49 93/49 O2 Sat by Pulse 94 94 95 Oximetry 02/08/21 02/08/21 02/08/21 21:45 22:00 22:15 Temperature Pulse Rate 96 H 99 H 99 H Pulse Rate [ From Monitor] Respiratory 34 H 34 H 34 H Rate Blood Pressure 99/51 90/51 97/50 O2 Sat by Pulse 95 94 92 Oximetry 02/08/21 02/08/21 02/08/21 22:30 22:45 23:00 Temperature Pulse Rate 99 H 98 H 99 H Pulse Rate [ From Monitor] Respiratory 34 H 35 H 35 H Rate Blood Pressure 93/50 87/46 86/47 O2 Sat by Pulse 92 92 90 Oximetry 02/08/21 02/08/21 02/08/21 23:15 23:28 23:30 Temperature Pulse Rate 98 H 99 H 99 H Pulse Rate [ From Monitor] Respiratory 34 H 34 H 34 H Rate Blood Pressure 89/47 89/47 95/49 O2 Sat by Pulse 91 92 93 Oximetry 02/08/21 02/08/21 02/08/21 23:33 23:45 23:54 Temperature Pulse Rate 99 H 96 H 100 H Pulse Rate [ From Monitor] Respiratory 34 H 34 H Rate Blood Pressure 95/49 95/50 95/49 O2 Sat by Pulse 93 95 93 Oximetry 02/09/21 02/09/21 02/09/21 00:00 00:16 00:30 Temperature 100.1 F H Pulse Rate 101 H 102 H 103 H Pulse Rate [ 98 H From Monitor] Respiratory 34 H 34 H 34 H Rate Blood Pressure 98/56 97/58 107/58 O2 Sat by Pulse 96 96 95 Oximetry 02/09/21 02/09/21 02/09/21 00:45 01:00 01:15 Temperature Pulse Rate 103 H 99 H 98 H Pulse Rate [ From Monitor] Respiratory 34 H 34 H 34 H Rate Blood Pressure 107/58 109/55 90/49 O2 Sat by Pulse 94 94 95 Oximetry 02/09/21 02/09/21 02/09/21 01:30 01:45 02:00 Temperature Pulse Rate 95 H 96 H 94 H Pulse Rate [ From Monitor] Respiratory 34 H 34 H 34 H Rate Blood Pressure 90/49 87/48 89/53 O2 Sat by Pulse 94 94 96 Oximetry 02/09/21 02/09/21 02/09/21 02:15 02:30 02:45 Temperature Pulse Rate 94 H 95 H 94 H Pulse Rate [ From Monitor] Respiratory 34 H 34 H 34 H Rate Blood Pressure 93/53 98/57 99/56 O2 Sat by Pulse 97 98 98 Oximetry 02/09/21 02/09/21 02/09/21 03:00 03:16 03:30 Temperature Pulse Rate 93 H 96 H 97 H Pulse Rate [ From Monitor] Respiratory 34 H 34 H 34 H Rate Blood Pressure 97/57 119/65 115/67 O2 Sat by Pulse 98 98 98 Oximetry 02/09/21 02/09/21 02/09/21 03:45 04:00 04:15 Temperature 101.0 F H Pulse Rate 99 H 98 H 100 H Pulse Rate [ 98 H From Monitor] Respiratory 33 H 35 H 34 H Rate Blood Pressure 116/71 117/63 114/62 O2 Sat by Pulse 98 98 97 Oximetry 02/09/21 02/09/21 02/09/21 04:30 04:35 04:45 Temperature Pulse Rate 104 H 103 H 104 H Pulse Rate [ From Monitor] Respiratory 34 H 34 H Rate Blood Pressure 122/63 122/63 111/61 O2 Sat by Pulse 97 97 96 Oximetry 02/09/21 02/09/21 02/09/21 05:00 05:15 05:30 Temperature Pulse Rate 102 H 100 H 101 H Pulse Rate [ From Monitor] Respiratory 34 H 34 H 31 H Rate Blood Pressure 112/58 100/73 100/73 O2 Sat by Pulse 97 98 95 Oximetry 02/09/21 02/09/21 02/09/21 05:46 06:00 06:36 Temperature Pulse Rate 99 H 99 H Pulse Rate [ 98 H From Monitor] Respiratory 33 H 34 H 34 H Rate Blood Pressure 122/71 131/69 O2 Sat by Pulse 96 96 95 Oximetry 02/09/21 07:49 Temperature Pulse Rate 89 Pulse Rate [ From Monitor] Respiratory Rate Blood Pressure 150/85 O2 Sat by Pulse 95 Oximetry Constitutional: comatose Eyes: non-icteric ENT: other (orally intubated and sedated) Neck: supple Effort: mildly labored Ascultation: Bilateral: clear Percussion: Bilateral: not dull Cardiovascular: regular rate and rhythm Gastrointestinal: normoactive bowel sounds CBC and BMP: 02/09/21 05:10 02/09/21 05:10 ABG, PT/INR, D-dimer: ABG ABG pH 7.319 (7.320-7.450) L 02/09/21 03:21 POC ABG pCO2 68.3 mmHg (32.0-48.0) H 02/09/21 03:21 ABG pCO2 82.8 mm Hg 02/06/21 17:00 POC ABG pO2 76.5 mmHg (83-108) L 02/09/21 03:21 ABG pO2 109.8 mm Hg (80.0-90.0) H 02/06/21 17:00 POC ABG HCO3 34.3 02/09/21 03:21 ABG O2 Saturation 93.6 (0-100) 02/09/21 03:21 PT/INR, D-dimer D-Dimer > 74212 ng/mlDDU (0-234) H 01/30/21 04:00 Abnormal lab findings: Abnormal Labs 01/22/21 01/22/21 01/22/21 22:39 22:57 22:57 WBC RBC Hgb Hct MCV MCH MCHC RDW Plt Count Lymph % (Auto) 6.6 L Lymph # (Auto) 0.5 L Seg Neutrophils % 87.6 H Seg Neuts % (Manual) Lymphocytes % (Manual) Seg Neutrophils # Seg Neutrophils # Man Lymphocytes # (Manual) Eosinophils # (Manual) D-Dimer ABG pH POC ABG pCO2 POC ABG pO2 ABG pO2 ABG HCO3 ABG O2 Saturation ABG Base Excess ABG Hemoglobin ABG Oxyhemoglobin ABG Sodium ABG Potassium ABG Chloride ABG Glucose Oxyhemoglobin Carboxyhemoglobin Sodium 129 L Potassium 3.4 L Chloride 90.4 L Carbon Dioxide BUN 34 H Creatinine 1.5 H Glucose 146 H POC Glucose Hemoglobin A1c Lactic Acid Calcium 7.8 L Phosphorus Magnesium Ferritin Total Bilirubin AST 75 H ALT 57 H Lactate Dehydrogenase C-Reactive Protein Albumin 2.9 L Triglycerides Arterial Blood Glucose Arterial Blood Ionized Calcium Urine Creatinine 301.2 H Coronavirus (PCR) 01/22/21 01/22/21 01/22/21 22:57 22:57 22:57 WBC RBC Hgb Hct MCV MCH MCHC RDW Plt Count Lymph % (Auto) Lymph # (Auto) Seg Neutrophils % Seg Neuts % (Manual) Lymphocytes % (Manual) Seg Neutrophils # Seg Neutrophils # Man Lymphocytes # (Manual) Eosinophils # (Manual) D-Dimer 1173.89 H ABG pH POC ABG pCO2 POC ABG pO2 ABG pO2 ABG HCO3 ABG O2 Saturation ABG Base Excess ABG Hemoglobin ABG Oxyhemoglobin ABG Sodium ABG Potassium ABG Chloride ABG Glucose Oxyhemoglobin Carboxyhemoglobin Sodium Potassium Chloride Carbon Dioxide BUN Creatinine Glucose 149 H POC Glucose Hemoglobin A1c Lactic Acid 2.10 H* Calcium Phosphorus Magnesium Ferritin Total Bilirubin AST ALT Lactate Dehydrogenase 685 H C-Reactive Protein 30.40 H Albumin Triglycerides Arterial Blood Glucose Arterial Blood Ionized Calcium Urine Creatinine Coronavirus (PCR) 01/22/21 01/23/21 01/23/21 22:57 08:41 10:01 WBC RBC Hgb Hct MCV MCH MCHC RDW Plt Count Lymph % (Auto) Lymph # (Auto) Seg Neutrophils % Seg Neuts % (Manual) Lymphocytes % (Manual) Seg Neutrophils # Seg Neutrophils # Man Lymphocytes # (Manual) Eosinophils # (Manual) D-Dimer ABG pH POC ABG pCO2 POC ABG pO2 ABG pO2 ABG HCO3 ABG O2 Saturation ABG Base Excess ABG Hemoglobin ABG Oxyhemoglobin ABG Sodium ABG Potassium ABG Chloride ABG Glucose Oxyhemoglobin Carboxyhemoglobin Sodium 131 L Potassium Chloride 88.7 L Carbon Dioxide 18 L BUN 36 H Creatinine 1.6 H Glucose 147 H POC Glucose Hemoglobin A1c Lactic Acid Calcium 7.5 L Phosphorus Magnesium Ferritin 1207.0 H Total Bilirubin AST ALT Lactate Dehydrogenase C-Reactive Protein Albumin Triglycerides Arterial Blood Glucose Arterial Blood Ionized Calcium Urine Creatinine Coronavirus (PCR) Positive A 01/23/21 01/23/21 01/24/21 20:49 Unknown 00:10 WBC RBC Hgb Hct MCV MCH MCHC RDW Plt Count Lymph % (Auto) Lymph # (Auto) Seg Neutrophils % Seg Neuts % (Manual) Lymphocytes % (Manual) Seg Neutrophils # Seg Neutrophils # Man Lymphocytes # (Manual) Eosinophils # (Manual) D-Dimer ABG pH POC ABG pCO2 POC ABG pO2 ABG pO2 165.4 H ABG HCO3 ABG O2 Saturation ABG Base Excess -2.5 L ABG Hemoglobin ABG Oxyhemoglobin ABG Sodium ABG Potassium ABG Chloride ABG Glucose Oxyhemoglobin Carboxyhemoglobin Sodium 130 L Potassium Chloride 91.0 L Carbon Dioxide 20 L BUN 52 H Creatinine 3.8 H D Glucose 150 H POC Glucose 125 H Hemoglobin A1c Lactic Acid Calcium 8.0 L Phosphorus Magnesium Ferritin Total Bilirubin AST 42 H ALT Lactate Dehydrogenase C-Reactive Protein Albumin 2.4 L Triglycerides Arterial Blood Glucose Arterial Blood Ionized Calcium Urine Creatinine Coronavirus (PCR) 01/24/21 01/24/21 01/24/21 05:05 05:05 05:05 WBC 14.0 H RBC Hgb Hct MCV 95 H MCH 33 H MCHC RDW Plt Count Lymph % (Auto) Lymph # (Auto) Seg Neutrophils % Seg Neuts % (Manual) 91.0 H Lymphocytes % (Manual) 4.0 L Seg Neutrophils # Seg Neutrophils # Man 12.7 H Lymphocytes # (Manual) 0.6 L Eosinophils # (Manual) D-Dimer 6159.48 H ABG pH POC ABG pCO2 POC ABG pO2 ABG pO2 ABG HCO3 ABG O2 Saturation ABG Base Excess ABG Hemoglobin ABG Oxyhemoglobin ABG Sodium ABG Potassium ABG Chloride ABG Glucose Oxyhemoglobin Carboxyhemoglobin Sodium Potassium Chloride Carbon Dioxide BUN Creatinine Glucose POC Glucose Hemoglobin A1c Lactic Acid Calcium Phosphorus Magnesium Ferritin 1178.0 H Total Bilirubin AST ALT Lactate Dehydrogenase C-Reactive Protein Albumin Triglycerides Arterial Blood Glucose Arterial Blood Ionized Calcium Urine Creatinine Coronavirus (PCR) 01/24/21 01/24/21 01/24/21 05:05 05:05 05:05 WBC RBC Hgb Hct MCV MCH MCHC RDW Plt Count Lymph % (Auto) Lymph # (Auto) Seg Neutrophils % Seg Neuts % (Manual) Lymphocytes % (Manual) Seg Neutrophils # Seg Neutrophils # Man Lymphocytes # (Manual) Eosinophils # (Manual) D-Dimer ABG pH POC ABG pCO2 POC ABG pO2 ABG pO2 ABG HCO3 ABG O2 Saturation ABG Base Excess ABG Hemoglobin ABG Oxyhemoglobin ABG Sodium ABG Potassium ABG Chloride ABG Glucose Oxyhemoglobin Carboxyhemoglobin Sodium 132 L Potassium Chloride 93.1 L Carbon Dioxide 21 L BUN 57 H Creatinine 3.7 H Glucose 133 H POC Glucose Hemoglobin A1c Lactic Acid 2.20 H* Calcium 7.7 L Phosphorus Magnesium Ferritin Total Bilirubin AST ALT Lactate Dehydrogenase 658 H C-Reactive Protein 33.20 H Albumin 2.4 L Triglycerides Arterial Blood Glucose Arterial Blood Ionized Calcium Urine Creatinine Coronavirus (PCR) 01/24/21 01/24/21 01/24/21 05:34 06:00 17:35 WBC RBC Hgb Hct MCV MCH MCHC RDW Plt Count Lymph % (Auto) Lymph # (Auto) Seg Neutrophils % Seg Neuts % (Manual) Lymphocytes % (Manual) Seg Neutrophils # Seg Neutrophils # Man Lymphocytes # (Manual) Eosinophils # (Manual) D-Dimer ABG pH POC ABG pCO2 POC ABG pO2 ABG pO2 ABG HCO3 ABG O2 Saturation ABG Base Excess ABG Hemoglobin ABG Oxyhemoglobin ABG Sodium ABG Potassium ABG Chloride ABG Glucose Oxyhemoglobin Carboxyhemoglobin Sodium Potassium Chloride Carbon Dioxide BUN Creatinine Glucose POC Glucose 136 H 137 H Hemoglobin A1c Lactic Acid Calcium Phosphorus Magnesium 2.80 H Ferritin Total Bilirubin AST ALT Lactate Dehydrogenase C-Reactive Protein Albumin Triglycerides Arterial Blood Glucose Arterial Blood Ionized Calcium Urine Creatinine Coronavirus (PCR) 01/25/21 01/25/21 01/25/21 04:15 05:40 05:40 WBC RBC Hgb Hct MCV 95 H MCH 33 H MCHC 35 H RDW Plt Count Lymph % (Auto) Lymph # (Auto) Seg Neutrophils % Seg Neuts % (Manual) 95.0 H Lymphocytes % (Manual) 3.0 L Seg Neutrophils # Seg Neutrophils # Man 7.8 H Lymphocytes # (Manual) 0.2 L Eosinophils # (Manual) D-Dimer ABG pH POC ABG pCO2 POC ABG pO2 63.2 L ABG pO2 ABG HCO3 ABG O2 Saturation ABG Base Excess ABG Hemoglobin ABG Oxyhemoglobin 89.6 L ABG Sodium ABG Potassium ABG Chloride ABG Glucose 165 H Oxyhemoglobin Carboxyhemoglobin 0.3 L Sodium Potassium Chloride Carbon Dioxide BUN 67 H Creatinine 3.4 H Glucose 153 H POC Glucose Hemoglobin A1c Lactic Acid Calcium 7.5 L Phosphorus Magnesium Ferritin Total Bilirubin 1.40 H AST 62 H ALT Lactate Dehydrogenase C-Reactive Protein Albumin 2.6 L Triglycerides Arterial Blood Glucose 165 H Arterial Blood Ionized Calcium 4.3 L Urine Creatinine Coronavirus (PCR) 01/25/21 01/25/21 01/25/21 05:59 12:00 17:17 WBC RBC Hgb Hct MCV MCH MCHC RDW Plt Count Lymph % (Auto) Lymph # (Auto) Seg Neutrophils % Seg Neuts % (Manual) Lymphocytes % (Manual) Seg Neutrophils # Seg Neutrophils # Man Lymphocytes # (Manual) Eosinophils # (Manual) D-Dimer ABG pH POC ABG pCO2 POC ABG pO2 ABG pO2 ABG HCO3 ABG O2 Saturation ABG Base Excess ABG Hemoglobin ABG Oxyhemoglobin ABG Sodium ABG Potassium ABG Chloride ABG Glucose Oxyhemoglobin Carboxyhemoglobin Sodium Potassium Chloride Carbon Dioxide BUN Creatinine Glucose POC Glucose 140 H 143 H 149 H Hemoglobin A1c Lactic Acid Calcium Phosphorus Magnesium Ferritin Total Bilirubin AST ALT Lactate Dehydrogenase C-Reactive Protein Albumin Triglycerides Arterial Blood Glucose Arterial Blood Ionized Calcium Urine Creatinine Coronavirus (PCR) 01/25/21 01/26/21 01/26/21 23:41 03:43 05:46 WBC RBC Hgb Hct MCV MCH MCHC RDW Plt Count Lymph % (Auto) Lymph # (Auto) Seg Neutrophils % Seg Neuts % (Manual) Lymphocytes % (Manual) Seg Neutrophils # Seg Neutrophils # Man Lymphocytes # (Manual) Eosinophils # (Manual) D-Dimer ABG pH POC ABG pCO2 POC ABG pO2 70.0 L ABG pO2 ABG HCO3 ABG O2 Saturation ABG Base Excess ABG Hemoglobin ABG Oxyhemoglobin 91.9 L ABG Sodium ABG Potassium ABG Chloride 109.0 H ABG Glucose 165 H Oxyhemoglobin Carboxyhemoglobin Sodium Potassium Chloride Carbon Dioxide BUN Creatinine Glucose POC Glucose 132 H 161 H Hemoglobin A1c Lactic Acid Calcium Phosphorus Magnesium Ferritin Total Bilirubin AST ALT Lactate Dehydrogenase C-Reactive Protein Albumin Triglycerides Arterial Blood Glucose 165 H Arterial Blood Ionized Calcium 4.5 L Urine Creatinine Coronavirus (PCR) 01/26/21 01/26/21 01/26/21 05:47 05:47 05:47 WBC RBC Hgb Hct 35.3 L MCV 96 H MCH 33 H MCHC RDW Plt Count Lymph % (Auto) Lymph # (Auto) Seg Neutrophils % Seg Neuts % (Manual) 96.0 H Lymphocytes % (Manual) 2.0 L Seg Neutrophils # Seg Neutrophils # Man Lymphocytes # (Manual) 0.1 L Eosinophils # (Manual) D-Dimer > 29995 H ABG pH POC ABG pCO2 POC ABG pO2 ABG pO2 ABG HCO3 ABG O2 Saturation ABG Base Excess ABG Hemoglobin ABG Oxyhemoglobin ABG Sodium ABG Potassium ABG Chloride ABG Glucose Oxyhemoglobin Carboxyhemoglobin Sodium Potassium Chloride Carbon Dioxide BUN 57 H Creatinine 2.2 H Glucose 185 H POC Glucose Hemoglobin A1c Lactic Acid Calcium 8.1 L Phosphorus Magnesium Ferritin Total Bilirubin AST ALT Lactate Dehydrogenase C-Reactive Protein Albumin Triglycerides Arterial Blood Glucose Arterial Blood Ionized Calcium Urine Creatinine Coronavirus (PCR) 01/26/21 01/26/21 01/26/21 05:47 05:47 05:47 WBC RBC Hgb Hct MCV MCH MCHC RDW Plt Count Lymph % (Auto) Lymph # (Auto) Seg Neutrophils % Seg Neuts % (Manual) Lymphocytes % (Manual) Seg Neutrophils # Seg Neutrophils # Man Lymphocytes # (Manual) Eosinophils # (Manual) D-Dimer ABG pH POC ABG pCO2 POC ABG pO2 ABG pO2 ABG HCO3 ABG O2 Saturation ABG Base Excess ABG Hemoglobin ABG Oxyhemoglobin ABG Sodium ABG Potassium ABG Chloride ABG Glucose Oxyhemoglobin Carboxyhemoglobin Sodium Potassium Chloride 107.1 H Carbon Dioxide BUN 56 H Creatinine 2.2 H Glucose 188 H POC Glucose Hemoglobin A1c Lactic Acid Calcium 8.0 L Phosphorus Magnesium Ferritin 1178.0 H Total Bilirubin 1.50 H AST ALT Lactate Dehydrogenase 588 H C-Reactive Protein 40.10 H Albumin 2.2 L Triglycerides Arterial Blood Glucose Arterial Blood Ionized Calcium Urine Creatinine Coronavirus (PCR) 01/26/21 01/26/21 01/26/21 11:34 18:17 23:20 WBC RBC Hgb Hct MCV MCH MCHC RDW Plt Count Lymph % (Auto) Lymph # (Auto) Seg Neutrophils % Seg Neuts % (Manual) Lymphocytes % (Manual) Seg Neutrophils # Seg Neutrophils # Man Lymphocytes # (Manual) Eosinophils # (Manual) D-Dimer ABG pH POC ABG pCO2 POC ABG pO2 ABG pO2 ABG HCO3 ABG O2 Saturation ABG Base Excess ABG Hemoglobin ABG Oxyhemoglobin ABG Sodium ABG Potassium ABG Chloride ABG Glucose Oxyhemoglobin Carboxyhemoglobin Sodium Potassium Chloride Carbon Dioxide BUN Creatinine Glucose POC Glucose 129 H 205 H 155 H Hemoglobin A1c Lactic Acid Calcium Phosphorus Magnesium Ferritin Total Bilirubin AST ALT Lactate Dehydrogenase C-Reactive Protein Albumin Triglycerides Arterial Blood Glucose Arterial Blood Ionized Calcium Urine Creatinine Coronavirus (PCR) 01/27/21 01/27/21 01/27/21 02:45 05:29 05:29 WBC RBC 3.58 L Hgb 11.7 L Hct 34.9 L MCV 97 H MCH 33 H MCHC RDW Plt Count Lymph % (Auto) Lymph # (Auto) Seg Neutrophils % Seg Neuts % (Manual) 88.0 H Lymphocytes % (Manual) 7.0 L Seg Neutrophils # Seg Neutrophils # Man Lymphocytes # (Manual) 0.5 L Eosinophils # (Manual) D-Dimer ABG pH 7.319 L POC ABG pCO2 50.7 H POC ABG pO2 63.0 L ABG pO2 ABG HCO3 ABG O2 Saturation ABG Base Excess ABG Hemoglobin ABG Oxyhemoglobin ABG Sodium 145.2 H ABG Potassium 5.1 H ABG Chloride 114.0 H ABG Glucose 178 H Oxyhemoglobin Carboxyhemoglobin Sodium Potassium Chloride Carbon Dioxide BUN Creatinine Glucose POC Glucose Hemoglobin A1c Lactic Acid Calcium Phosphorus Magnesium 4.00 H Ferritin Total Bilirubin AST ALT Lactate Dehydrogenase C-Reactive Protein Albumin Triglycerides Arterial Blood Glucose 178 H Arterial Blood Ionized Calcium Urine Creatinine Coronavirus (PCR) 01/27/21 01/27/21 01/27/21 05:29 05:29 05:31 WBC RBC Hgb Hct MCV MCH MCHC RDW Plt Count Lymph % (Auto) Lymph # (Auto) Seg Neutrophils % Seg Neuts % (Manual) Lymphocytes % (Manual) Seg Neutrophils # Seg Neutrophils # Man Lymphocytes # (Manual) Eosinophils # (Manual) D-Dimer ABG pH POC ABG pCO2 POC ABG pO2 ABG pO2 ABG HCO3 ABG O2 Saturation ABG Base Excess ABG Hemoglobin ABG Oxyhemoglobin ABG Sodium ABG Potassium ABG Chloride ABG Glucose Oxyhemoglobin Carboxyhemoglobin Sodium Potassium 5.2 H Chloride 109.6 H Carbon Dioxide BUN 67 H Creatinine 2.8 H Glucose 195 H POC Glucose 176 H Hemoglobin A1c Lactic Acid Calcium 7.9 L Phosphorus Magnesium Ferritin Total Bilirubin AST ALT Lactate Dehydrogenase C-Reactive Protein Albumin Triglycerides 160 H Arterial Blood Glucose Arterial Blood Ionized Calcium Urine Creatinine Coronavirus (PCR) 01/27/21 01/27/21 01/27/21 11:27 18:08 23:30 WBC RBC Hgb Hct MCV MCH MCHC RDW Plt Count Lymph % (Auto) Lymph # (Auto) Seg Neutrophils % Seg Neuts % (Manual) Lymphocytes % (Manual) Seg Neutrophils # Seg Neutrophils # Man Lymphocytes # (Manual) Eosinophils # (Manual) D-Dimer ABG pH POC ABG pCO2 POC ABG pO2 ABG pO2 ABG HCO3 ABG O2 Saturation ABG Base Excess ABG Hemoglobin ABG Oxyhemoglobin ABG Sodium ABG Potassium ABG Chloride ABG Glucose Oxyhemoglobin Carboxyhemoglobin Sodium Potassium Chloride Carbon Dioxide BUN Creatinine Glucose POC Glucose 189 H 212 H 175 H Hemoglobin A1c Lactic Acid Calcium Phosphorus Magnesium Ferritin Total Bilirubin AST ALT Lactate Dehydrogenase C-Reactive Protein Albumin Triglycerides Arterial Blood Glucose Arterial Blood Ionized Calcium Urine Creatinine Coronavirus (PCR) 01/28/21 01/28/21 01/28/21 03:58 04:00 04:00 WBC RBC Hgb Hct MCV MCH MCHC RDW Plt Count Lymph % (Auto) Lymph # (Auto) Seg Neutrophils % Seg Neuts % (Manual) Lymphocytes % (Manual) Seg Neutrophils # Seg Neutrophils # Man Lymphocytes # (Manual) Eosinophils # (Manual) D-Dimer > 12658 H ABG pH POC ABG pCO2 POC ABG pO2 52.9 L ABG pO2 ABG HCO3 ABG O2 Saturation ABG Base Excess ABG Hemoglobin ABG Oxyhemoglobin 84.1 L ABG Sodium 148.9 H ABG Potassium ABG Chloride 117.0 H ABG Glucose 194 H Oxyhemoglobin Carboxyhemoglobin Sodium Potassium Chloride Carbon Dioxide BUN Creatinine Glucose POC Glucose Hemoglobin A1c Lactic Acid Calcium Phosphorus Magnesium Ferritin Total Bilirubin AST ALT Lactate Dehydrogenase 679 H C-Reactive Protein 17.10 H Albumin Triglycerides Arterial Blood Glucose 194 H Arterial Blood Ionized Calcium Urine Creatinine Coronavirus (PCR) 01/28/21 01/28/21 01/28/21 04:00 05:00 06:00 WBC RBC 3.59 L Hgb 11.6 L Hct 34.8 L MCV 97 H MCH MCHC RDW Plt Count Lymph % (Auto) Lymph # (Auto) Seg Neutrophils % Seg Neuts % (Manual) 96.0 H Lymphocytes % (Manual) 3.0 L Seg Neutrophils # Seg Neutrophils # Man Lymphocytes # (Manual) 0.2 L Eosinophils # (Manual) D-Dimer ABG pH POC ABG pCO2 POC ABG pO2 ABG pO2 ABG HCO3 ABG O2 Saturation ABG Base Excess ABG Hemoglobin ABG Oxyhemoglobin ABG Sodium ABG Potassium ABG Chloride ABG Glucose Oxyhemoglobin Carboxyhemoglobin Sodium Potassium Chloride Carbon Dioxide BUN Creatinine Glucose POC Glucose 159 H Hemoglobin A1c Lactic Acid Calcium Phosphorus Magnesium Ferritin 798.0 H Total Bilirubin AST ALT Lactate Dehydrogenase C-Reactive Protein Albumin Triglycerides Arterial Blood Glucose Arterial Blood Ionized Calcium Urine Creatinine Coronavirus (PCR) 01/28/21 01/28/21 01/28/21 06:00 06:00 08:12 WBC RBC Hgb Hct MCV MCH MCHC RDW Plt Count Lymph % (Auto) Lymph # (Auto) Seg Neutrophils % Seg Neuts % (Manual) Lymphocytes % (Manual) Seg Neutrophils # Seg Neutrophils # Man Lymphocytes # (Manual) Eosinophils # (Manual) D-Dimer ABG pH POC ABG pCO2 POC ABG pO2 ABG pO2 ABG HCO3 ABG O2 Saturation ABG Base Excess ABG Hemoglobin ABG Oxyhemoglobin ABG Sodium ABG Potassium ABG Chloride ABG Glucose Oxyhemoglobin Carboxyhemoglobin Sodium Potassium Chloride 111.9 H Carbon Dioxide BUN 59 H Creatinine 2.2 H Glucose 189 H POC Glucose 181 H Hemoglobin A1c Lactic Acid Calcium 8.1 L Phosphorus Magnesium 3.20 H Ferritin Total Bilirubin AST ALT Lactate Dehydrogenase C-Reactive Protein Albumin Triglycerides Arterial Blood Glucose Arterial Blood Ionized Calcium Urine Creatinine Coronavirus (PCR) 01/28/21 01/28/21 01/28/21 12:03 16:43 23:51 WBC RBC Hgb Hct MCV MCH MCHC RDW Plt Count Lymph % (Auto) Lymph # (Auto) Seg Neutrophils % Seg Neuts % (Manual) Lymphocytes % (Manual) Seg Neutrophils # Seg Neutrophils # Man Lymphocytes # (Manual) Eosinophils # (Manual) D-Dimer ABG pH POC ABG pCO2 POC ABG pO2 ABG pO2 ABG HCO3 ABG O2 Saturation ABG Base Excess ABG Hemoglobin ABG Oxyhemoglobin ABG Sodium ABG Potassium ABG Chloride ABG Glucose Oxyhemoglobin Carboxyhemoglobin Sodium Potassium Chloride Carbon Dioxide BUN Creatinine Glucose POC Glucose 164 H 198 H 196 H Hemoglobin A1c Lactic Acid Calcium Phosphorus Magnesium Ferritin Total Bilirubin AST ALT Lactate Dehydrogenase C-Reactive Protein Albumin Triglycerides Arterial Blood Glucose Arterial Blood Ionized Calcium Urine Creatinine Coronavirus (PCR) 01/29/21 01/29/21 01/29/21 05:00 05:23 06:00 WBC RBC Hgb Hct MCV MCH MCHC RDW Plt Count Lymph % (Auto) Lymph # (Auto) Seg Neutrophils % Seg Neuts % (Manual) Lymphocytes % (Manual) Seg Neutrophils # Seg Neutrophils # Man Lymphocytes # (Manual) Eosinophils # (Manual) D-Dimer ABG pH 7.119 L POC ABG pCO2 87.1 H POC ABG pO2 ABG pO2 ABG HCO3 ABG O2 Saturation ABG Base Excess ABG Hemoglobin ABG Oxyhemoglobin ABG Sodium 152.5 H ABG Potassium 5.7 H ABG Chloride 120.0 H ABG Glucose 217 H Oxyhemoglobin Carboxyhemoglobin Sodium 151 H Potassium 5.9 H D Chloride 117.8 H Carbon Dioxide BUN 54 H Creatinine 2.2 H Glucose 208 H POC Glucose 180 H Hemoglobin A1c Lactic Acid Calcium 7.9 L Phosphorus Magnesium Ferritin Total Bilirubin AST ALT Lactate Dehydrogenase C-Reactive Protein Albumin Triglycerides Arterial Blood Glucose 217 H Arterial Blood Ionized Calcium Urine Creatinine Coronavirus (PCR) 01/29/21 01/29/21 01/29/21 12:29 17:28 18:05 WBC RBC Hgb Hct MCV MCH MCHC RDW Plt Count Lymph % (Auto) Lymph # (Auto) Seg Neutrophils % Seg Neuts % (Manual) Lymphocytes % (Manual) Seg Neutrophils # Seg Neutrophils # Man Lymphocytes # (Manual) Eosinophils # (Manual) D-Dimer ABG pH POC ABG pCO2 POC ABG pO2 ABG pO2 ABG HCO3 ABG O2 Saturation ABG Base Excess ABG Hemoglobin ABG Oxyhemoglobin ABG Sodium ABG Potassium ABG Chloride ABG Glucose Oxyhemoglobin Carboxyhemoglobin Sodium 151 H Potassium 5.5 H Chloride 118.2 H Carbon Dioxide BUN 52 H Creatinine 2.2 H Glucose 224 H POC Glucose 181 H 203 H Hemoglobin A1c Lactic Acid Calcium 8.0 L Phosphorus Magnesium Ferritin Total Bilirubin AST ALT Lactate Dehydrogenase C-Reactive Protein Albumin Triglycerides Arterial Blood Glucose Arterial Blood Ionized Calcium Urine Creatinine Coronavirus (PCR) 01/29/21 01/29/21 01/29/21 18:13 23:34 Unknown WBC RBC Hgb Hct MCV 101 H MCH MCHC RDW 15.7 H Plt Count Lymph % (Auto) Lymph # (Auto) Seg Neutrophils % Seg Neuts % (Manual) 95.0 H Lymphocytes % (Manual) 3.0 L Seg Neutrophils # Seg Neutrophils # Man 8.0 H Lymphocytes # (Manual) 0.3 L Eosinophils # (Manual) D-Dimer ABG pH 7.223 L POC ABG pCO2 64.8 H POC ABG pO2 63.6 L ABG pO2 ABG HCO3 ABG O2 Saturation ABG Base Excess ABG Hemoglobin ABG Oxyhemoglobin 89.4 L ABG Sodium 152.9 H ABG Potassium 5.3 H ABG Chloride 121.0 H ABG Glucose 227 H Oxyhemoglobin Carboxyhemoglobin Sodium Potassium Chloride Carbon Dioxide BUN Creatinine Glucose POC Glucose 198 H Hemoglobin A1c Lactic Acid Calcium Phosphorus Magnesium Ferritin Total Bilirubin AST ALT Lactate Dehydrogenase C-Reactive Protein Albumin Triglycerides Arterial Blood Glucose 227 H Arterial Blood Ionized Calcium Urine Creatinine Coronavirus (PCR) 01/30/21 01/30/21 01/30/21 04:00 04:00 04:00 WBC RBC Hgb Hct MCV MCH MCHC RDW Plt Count Lymph % (Auto) Lymph # (Auto) Seg Neutrophils % Seg Neuts % (Manual) Lymphocytes % (Manual) Seg Neutrophils # Seg Neutrophils # Man Lymphocytes # (Manual) Eosinophils # (Manual) D-Dimer > 32522 H ABG pH POC ABG pCO2 POC ABG pO2 ABG pO2 ABG HCO3 ABG O2 Saturation ABG Base Excess ABG Hemoglobin ABG Oxyhemoglobin ABG Sodium ABG Potassium ABG Chloride ABG Glucose Oxyhemoglobin Carboxyhemoglobin Sodium Potassium Chloride Carbon Dioxide BUN Creatinine Glucose 234 H POC Glucose Hemoglobin A1c Lactic Acid Calcium Phosphorus Magnesium Ferritin 763.9 H Total Bilirubin AST ALT Lactate Dehydrogenase 424 H C-Reactive Protein 23.90 H Albumin Triglycerides Arterial Blood Glucose Arterial Blood Ionized Calcium Urine Creatinine Coronavirus (PCR) 01/30/21 01/30/21 01/30/21 04:24 05:00 05:16 WBC RBC 3.57 L Hgb 11.3 L Hct 35.4 L MCV 99 H MCH MCHC RDW 15.6 H Plt Count Lymph % (Auto) Lymph # (Auto) Seg Neutrophils % Seg Neuts % (Manual) 97.0 H Lymphocytes % (Manual) 1.0 L Seg Neutrophils # Seg Neutrophils # Man 8.6 H Lymphocytes # (Manual) 0.1 L Eosinophils # (Manual) D-Dimer ABG pH 7.235 L POC ABG pCO2 69.7 H POC ABG pO2 61.0 L ABG pO2 ABG HCO3 ABG O2 Saturation ABG Base Excess ABG Hemoglobin ABG Oxyhemoglobin 89 L ABG Sodium 154.2 H ABG Potassium 5.4 H ABG Chloride 121.0 H ABG Glucose 247 H Oxyhemoglobin Carboxyhemoglobin Sodium Potassium Chloride Carbon Dioxide BUN Creatinine Glucose POC Glucose 238 H Hemoglobin A1c Lactic Acid Calcium Phosphorus Magnesium Ferritin Total Bilirubin AST ALT Lactate Dehydrogenase C-Reactive Protein Albumin Triglycerides Arterial Blood Glucose 247 H Arterial Blood Ionized Calcium Urine Creatinine Coronavirus (PCR) 01/30/21 01/30/21 01/30/21 06:00 11:28 12:00 WBC RBC Hgb Hct MCV MCH MCHC RDW Plt Count Lymph % (Auto) Lymph # (Auto) Seg Neutrophils % Seg Neuts % (Manual) Lymphocytes % (Manual) Seg Neutrophils # Seg Neutrophils # Man Lymphocytes # (Manual) Eosinophils # (Manual) D-Dimer ABG pH POC ABG pCO2 POC ABG pO2 ABG pO2 ABG HCO3 ABG O2 Saturation ABG Base Excess ABG Hemoglobin ABG Oxyhemoglobin ABG Sodium ABG Potassium ABG Chloride ABG Glucose Oxyhemoglobin Carboxyhemoglobin Sodium 152 H Potassium 5.3 H Chloride 120.5 H Carbon Dioxide BUN 50 H Creatinine 2.3 H Glucose 239 H POC Glucose 153 H Hemoglobin A1c Lactic Acid Calcium 8.2 L Phosphorus Magnesium 2.60 H Ferritin Total Bilirubin AST ALT Lactate Dehydrogenase C-Reactive Protein Albumin Triglycerides 293 H Arterial Blood Glucose Arterial Blood Ionized Calcium Urine Creatinine 53.0 H Coronavirus (PCR) 01/30/21 01/30/21 01/31/21 18:49 23:06 04:00 WBC RBC Hgb Hct MCV MCH MCHC RDW Plt Count Lymph % (Auto) Lymph # (Auto) Seg Neutrophils % Seg Neuts % (Manual) Lymphocytes % (Manual) Seg Neutrophils # Seg Neutrophils # Man Lymphocytes # (Manual) Eosinophils # (Manual) D-Dimer ABG pH POC ABG pCO2 POC ABG pO2 ABG pO2 ABG HCO3 ABG O2 Saturation ABG Base Excess ABG Hemoglobin ABG Oxyhemoglobin ABG Sodium ABG Potassium ABG Chloride ABG Glucose Oxyhemoglobin Carboxyhemoglobin Sodium 156 H Potassium 5.9 H Chloride 122.6 H Carbon Dioxide BUN 61 H Creatinine 3.2 H Glucose 205 H POC Glucose 220 H 192 H Hemoglobin A1c Lactic Acid Calcium 8.0 L Phosphorus Magnesium Ferritin Total Bilirubin AST ALT Lactate Dehydrogenase C-Reactive Protein Albumin Triglycerides Arterial Blood Glucose Arterial Blood Ionized Calcium Urine Creatinine Coronavirus (PCR) 01/31/21 01/31/21 01/31/21 04:40 05:17 11:33 WBC RBC Hgb Hct MCV MCH MCHC RDW Plt Count Lymph % (Auto) Lymph # (Auto) Seg Neutrophils % Seg Neuts % (Manual) Lymphocytes % (Manual) Seg Neutrophils # Seg Neutrophils # Man Lymphocytes # (Manual) Eosinophils # (Manual) D-Dimer ABG pH 7.161 L* POC ABG pCO2 POC ABG pO2 ABG pO2 142.2 H ABG HCO3 28.3 H ABG O2 Saturation ABG Base Excess -3.2 L ABG Hemoglobin ABG Oxyhemoglobin ABG Sodium ABG Potassium ABG Chloride ABG Glucose Oxyhemoglobin Carboxyhemoglobin Sodium Potassium Chloride Carbon Dioxide BUN Creatinine Glucose POC Glucose 200 H 167 H Hemoglobin A1c Lactic Acid Calcium Phosphorus Magnesium Ferritin Total Bilirubin AST ALT Lactate Dehydrogenase C-Reactive Protein Albumin Triglycerides Arterial Blood Glucose Arterial Blood Ionized Calcium Urine Creatinine Coronavirus (PCR) 01/31/21 01/31/21 01/31/21 14:00 17:10 23:24 WBC RBC Hgb Hct MCV MCH MCHC RDW Plt Count Lymph % (Auto) Lymph # (Auto) Seg Neutrophils % Seg Neuts % (Manual) Lymphocytes % (Manual) Seg Neutrophils # Seg Neutrophils # Man Lymphocytes # (Manual) Eosinophils # (Manual) D-Dimer ABG pH 7.205 L POC ABG pCO2 POC ABG pO2 ABG pO2 90.9 H ABG HCO3 26.5 H ABG O2 Saturation ABG Base Excess -2.7 L ABG Hemoglobin 12.3 L ABG Oxyhemoglobin ABG Sodium ABG Potassium ABG Chloride ABG Glucose Oxyhemoglobin 93.9 L Carboxyhemoglobin Sodium Potassium Chloride Carbon Dioxide BUN Creatinine Glucose POC Glucose 190 H 203 H Hemoglobin A1c Lactic Acid Calcium Phosphorus Magnesium Ferritin Total Bilirubin AST ALT Lactate Dehydrogenase C-Reactive Protein Albumin Triglycerides Arterial Blood Glucose Arterial Blood Ionized Calcium Urine Creatinine Coronavirus (PCR) 02/01/21 02/01/21 02/01/21 05:15 06:22 10:20 WBC RBC Hgb Hct MCV MCH MCHC RDW Plt Count Lymph % (Auto) Lymph # (Auto) Seg Neutrophils % Seg Neuts % (Manual) Lymphocytes % (Manual) Seg Neutrophils # Seg Neutrophils # Man Lymphocytes # (Manual) Eosinophils # (Manual) D-Dimer ABG pH 6.920 L* 7.116 L* POC ABG pCO2 POC ABG pO2 ABG pO2 102.9 H 113.1 H ABG HCO3 28.2 H ABG O2 Saturation 92.9 L ABG Base Excess -6.9 L -5.8 L ABG Hemoglobin 11.6 L 9.5 L ABG Oxyhemoglobin ABG Sodium ABG Potassium ABG Chloride ABG Glucose Oxyhemoglobin 90.5 L 94.6 L Carboxyhemoglobin Sodium Potassium Chloride Carbon Dioxide BUN Creatinine Glucose POC Glucose 221 H Hemoglobin A1c Lactic Acid Calcium Phosphorus Magnesium Ferritin Total Bilirubin AST ALT Lactate Dehydrogenase C-Reactive Protein Albumin Triglycerides Arterial Blood Glucose Arterial Blood Ionized Calcium Urine Creatinine Coronavirus (PCR) 02/01/21 02/01/21 02/01/21 11:12 12:35 16:00 WBC RBC Hgb Hct MCV MCH MCHC RDW Plt Count Lymph % (Auto) Lymph # (Auto) Seg Neutrophils % Seg Neuts % (Manual) Lymphocytes % (Manual) Seg Neutrophils # Seg Neutrophils # Man Lymphocytes # (Manual) Eosinophils # (Manual) D-Dimer ABG pH 7.155 L* POC ABG pCO2 POC ABG pO2 ABG pO2 94.6 H ABG HCO3 ABG O2 Saturation ABG Base Excess -6.5 L ABG Hemoglobin 13.1 L ABG Oxyhemoglobin ABG Sodium ABG Potassium ABG Chloride ABG Glucose Oxyhemoglobin 93.7 L Carboxyhemoglobin Sodium 155 H Potassium 5.1 H Chloride 120.5 H Carbon Dioxide BUN 90 H Creatinine 6.1 H D Glucose 238 H POC Glucose 207 H Hemoglobin A1c Lactic Acid Calcium 7.4 L Phosphorus Magnesium Ferritin Total Bilirubin AST ALT Lactate Dehydrogenase C-Reactive Protein Albumin Triglycerides Arterial Blood Glucose Arterial Blood Ionized Calcium Urine Creatinine Coronavirus (PCR) 02/01/21 02/01/21 02/02/21 17:10 23:47 04:04 WBC RBC 3.02 L Hgb 9.8 L Hct 30.7 L MCV 102 H MCH MCHC RDW 15.6 H Plt Count Lymph % (Auto) 4.2 L Lymph # (Auto) 0.3 L Seg Neutrophils % Seg Neuts % (Manual) Lymphocytes % (Manual) Seg Neutrophils # Seg Neutrophils # Man Lymphocytes # (Manual) Eosinophils # (Manual) D-Dimer ABG pH POC ABG pCO2 POC ABG pO2 ABG pO2 ABG HCO3 ABG O2 Saturation ABG Base Excess ABG Hemoglobin ABG Oxyhemoglobin ABG Sodium ABG Potassium ABG Chloride ABG Glucose Oxyhemoglobin Carboxyhemoglobin Sodium Potassium Chloride Carbon Dioxide BUN Creatinine Glucose POC Glucose 238 H 235 H Hemoglobin A1c Lactic Acid Calcium Phosphorus Magnesium Ferritin Total Bilirubin AST ALT Lactate Dehydrogenase C-Reactive Protein Albumin Triglycerides Arterial Blood Glucose Arterial Blood Ionized Calcium Urine Creatinine Coronavirus (PCR) 02/02/21 02/02/21 02/02/21 05:18 05:35 11:28 WBC RBC Hgb Hct MCV MCH MCHC RDW Plt Count Lymph % (Auto) Lymph # (Auto) Seg Neutrophils % Seg Neuts % (Manual) Lymphocytes % (Manual) Seg Neutrophils # Seg Neutrophils # Man Lymphocytes # (Manual) Eosinophils # (Manual) D-Dimer ABG pH 7.195 L* POC ABG pCO2 POC ABG pO2 ABG pO2 72.5 L ABG HCO3 ABG O2 Saturation 91.2 L ABG Base Excess -5.3 L ABG Hemoglobin 6.0 L ABG Oxyhemoglobin ABG Sodium ABG Potassium ABG Chloride ABG Glucose Oxyhemoglobin 89.1 L Carboxyhemoglobin Sodium Potassium Chloride 110.4 H Carbon Dioxide BUN 92 H Creatinine Glucose POC Glucose 239 H Hemoglobin A1c Lactic Acid Calcium Phosphorus Magnesium Ferritin Total Bilirubin AST ALT Lactate Dehydrogenase C-Reactive Protein Albumin Triglycerides Arterial Blood Glucose Arterial Blood Ionized Calcium Urine Creatinine Coronavirus (PCR) 02/02/21 02/02/21 02/02/21 11:53 16:00 18:04 WBC RBC Hgb Hct MCV MCH MCHC RDW Plt Count Lymph % (Auto) Lymph # (Auto) Seg Neutrophils % Seg Neuts % (Manual) Lymphocytes % (Manual) Seg Neutrophils # Seg Neutrophils # Man Lymphocytes # (Manual) Eosinophils # (Manual) D-Dimer ABG pH POC ABG pCO2 POC ABG pO2 ABG pO2 ABG HCO3 ABG O2 Saturation ABG Base Excess ABG Hemoglobin ABG Oxyhemoglobin ABG Sodium ABG Potassium ABG Chloride ABG Glucose Oxyhemoglobin Carboxyhemoglobin Sodium Potassium Chloride Carbon Dioxide BUN Creatinine Glucose POC Glucose 248 H 199 H Hemoglobin A1c 6.3 H Lactic Acid Calcium Phosphorus Magnesium Ferritin Total Bilirubin AST ALT Lactate Dehydrogenase C-Reactive Protein Albumin Triglycerides Arterial Blood Glucose Arterial Blood Ionized Calcium Urine Creatinine Coronavirus (PCR) 02/02/21 02/03/21 02/03/21 23:31 03:12 04:10 WBC RBC 3.06 L Hgb 9.7 L Hct 30.4 L MCV 99 H MCH MCHC RDW 15.3 H Plt Count Lymph % (Auto) 6.1 L Lymph # (Auto) 0.5 L Seg Neutrophils % 86.1 H Seg Neuts % (Manual) Lymphocytes % (Manual) Seg Neutrophils # Seg Neutrophils # Man Lymphocytes # (Manual) Eosinophils # (Manual) D-Dimer ABG pH 7.199 L POC ABG pCO2 48.3 H POC ABG pO2 68.3 L ABG pO2 ABG HCO3 ABG O2 Saturation ABG Base Excess ABG Hemoglobin 10.2 L ABG Oxyhemoglobin 89.2 L ABG Sodium 155.0 H ABG Potassium 4.6 H ABG Chloride 121.0 H ABG Glucose 166 H Oxyhemoglobin Carboxyhemoglobin 0.3 L Sodium Potassium Chloride Carbon Dioxide BUN Creatinine Glucose POC Glucose 200 H Hemoglobin A1c Lactic Acid Calcium Phosphorus Magnesium Ferritin Total Bilirubin AST ALT Lactate Dehydrogenase C-Reactive Protein Albumin Triglycerides Arterial Blood Glucose 166 H Arterial Blood Ionized Calcium 4.1 L Urine Creatinine Coronavirus (PCR) 02/03/21 02/03/21 02/03/21 04:10 05:34 11:51 WBC RBC Hgb Hct MCV MCH MCHC RDW Plt Count Lymph % (Auto) Lymph # (Auto) Seg Neutrophils % Seg Neuts % (Manual) Lymphocytes % (Manual) Seg Neutrophils # Seg Neutrophils # Man Lymphocytes # (Manual) Eosinophils # (Manual) D-Dimer ABG pH POC ABG pCO2 POC ABG pO2 ABG pO2 ABG HCO3 ABG O2 Saturation ABG Base Excess ABG Hemoglobin ABG Oxyhemoglobin ABG Sodium ABG Potassium ABG Chloride ABG Glucose Oxyhemoglobin Carboxyhemoglobin Sodium 154 H D Potassium Chloride 116.7 H Carbon Dioxide 20 L BUN 130 H Creatinine 9.2 H D Glucose 160 H POC Glucose 130 H 154 H Hemoglobin A1c Lactic Acid Calcium 6.7 L Phosphorus 8.60 H Magnesium Ferritin Total Bilirubin AST ALT Lactate Dehydrogenase C-Reactive Protein Albumin Triglycerides Arterial Blood Glucose Arterial Blood Ionized Calcium Urine Creatinine Coronavirus (PCR) 02/03/21 02/03/21 02/04/21 16:49 23:22 03:48 WBC RBC Hgb Hct MCV MCH MCHC RDW Plt Count Lymph % (Auto) Lymph # (Auto) Seg Neutrophils % Seg Neuts % (Manual) Lymphocytes % (Manual) Seg Neutrophils # Seg Neutrophils # Man Lymphocytes # (Manual) Eosinophils # (Manual) D-Dimer ABG pH 7.201 L POC ABG pCO2 54.5 H POC ABG pO2 74.0 L ABG pO2 ABG HCO3 ABG O2 Saturation ABG Base Excess ABG Hemoglobin 9.7 L ABG Oxyhemoglobin 91.1 L ABG Sodium 146.2 H ABG Potassium ABG Chloride 114.0 H ABG Glucose 155 H Oxyhemoglobin Carboxyhemoglobin Sodium Potassium Chloride Carbon Dioxide BUN Creatinine Glucose POC Glucose 164 H 152 H Hemoglobin A1c Lactic Acid Calcium Phosphorus Magnesium Ferritin Total Bilirubin AST ALT Lactate Dehydrogenase C-Reactive Protein Albumin Triglycerides Arterial Blood Glucose 155 H Arterial Blood Ionized Calcium 3.9 L Urine Creatinine Coronavirus (PCR) 02/04/21 02/04/21 02/04/21 04:45 04:45 04:45 WBC RBC 2.75 L Hgb 9.1 L Hct 26.9 L MCV 98 H MCH 33 H MCHC RDW Plt Count Lymph % (Auto) 6.8 L Lymph # (Auto) 0.5 L Seg Neutrophils % 87.2 H Seg Neuts % (Manual) Lymphocytes % (Manual) Seg Neutrophils # Seg Neutrophils # Man Lymphocytes # (Manual) Eosinophils # (Manual) D-Dimer ABG pH POC ABG pCO2 POC ABG pO2 ABG pO2 ABG HCO3 ABG O2 Saturation ABG Base Excess ABG Hemoglobin ABG Oxyhemoglobin ABG Sodium ABG Potassium ABG Chloride ABG Glucose Oxyhemoglobin Carboxyhemoglobin Sodium 149 H Potassium Chloride 111.5 H Carbon Dioxide BUN 99 H Creatinine 8.5 H Glucose 139 H POC Glucose Hemoglobin A1c Lactic Acid Calcium 6.8 L Phosphorus 8.40 H Magnesium Ferritin Total Bilirubin AST ALT Lactate Dehydrogenase C-Reactive Protein Albumin Triglycerides Arterial Blood Glucose Arterial Blood Ionized Calcium Urine Creatinine Coronavirus (PCR) 02/04/21 02/04/21 02/04/21 06:05 11:44 18:00 WBC RBC Hgb Hct MCV MCH MCHC RDW Plt Count Lymph % (Auto) Lymph # (Auto) Seg Neutrophils % Seg Neuts % (Manual) Lymphocytes % (Manual) Seg Neutrophils # Seg Neutrophils # Man Lymphocytes # (Manual) Eosinophils # (Manual) D-Dimer ABG pH POC ABG pCO2 POC ABG pO2 ABG pO2 ABG HCO3 ABG O2 Saturation ABG Base Excess ABG Hemoglobin ABG Oxyhemoglobin ABG Sodium ABG Potassium ABG Chloride ABG Glucose Oxyhemoglobin Carboxyhemoglobin Sodium Potassium Chloride Carbon Dioxide BUN Creatinine Glucose POC Glucose 138 H 129 H 163 H Hemoglobin A1c Lactic Acid Calcium Phosphorus Magnesium Ferritin Total Bilirubin AST ALT Lactate Dehydrogenase C-Reactive Protein Albumin Triglycerides Arterial Blood Glucose Arterial Blood Ionized Calcium Urine Creatinine Coronavirus (PCR) 02/04/21 02/05/21 02/05/21 23:48 01:50 01:50 WBC RBC 2.43 L Hgb 8.3 L Hct 23.6 L MCV 97 H MCH 34 H MCHC 35 H RDW Plt Count 137 L Lymph % (Auto) 8.4 L Lymph # (Auto) 0.6 L Seg Neutrophils % 86.1 H Seg Neuts % (Manual) Lymphocytes % (Manual) Seg Neutrophils # Seg Neutrophils # Man Lymphocytes # (Manual) Eosinophils # (Manual) D-Dimer ABG pH POC ABG pCO2 POC ABG pO2 ABG pO2 ABG HCO3 ABG O2 Saturation ABG Base Excess ABG Hemoglobin ABG Oxyhemoglobin ABG Sodium ABG Potassium ABG Chloride ABG Glucose Oxyhemoglobin Carboxyhemoglobin Sodium Potassium Chloride Carbon Dioxide BUN Creatinine Glucose POC Glucose 157 H Hemoglobin A1c Lactic Acid Calcium Phosphorus 5.60 H D Magnesium Ferritin Total Bilirubin AST ALT Lactate Dehydrogenase C-Reactive Protein Albumin Triglycerides Arterial Blood Glucose Arterial Blood Ionized Calcium Urine Creatinine Coronavirus (PCR) 02/05/21 02/05/21 02/05/21 03:44 05:27 09:15 WBC RBC Hgb Hct MCV MCH MCHC RDW Plt Count Lymph % (Auto) Lymph # (Auto) Seg Neutrophils % Seg Neuts % (Manual) Lymphocytes % (Manual) Seg Neutrophils # Seg Neutrophils # Man Lymphocytes # (Manual) Eosinophils # (Manual) D-Dimer ABG pH 7.202 L POC ABG pCO2 63.7 H POC ABG pO2 69.0 L ABG pO2 ABG HCO3 ABG O2 Saturation ABG Base Excess ABG Hemoglobin 9.4 L ABG Oxyhemoglobin ABG Sodium ABG Potassium ABG Chloride 108.0 H ABG Glucose 186 H Oxyhemoglobin Carboxyhemoglobin Sodium Potassium Chloride Carbon Dioxide BUN 78 H Creatinine 8.0 H Glucose 163 H POC Glucose 157 H Hemoglobin A1c Lactic Acid Calcium 6.3 L Phosphorus Magnesium Ferritin Total Bilirubin AST ALT Lactate Dehydrogenase C-Reactive Protein Albumin Triglycerides Arterial Blood Glucose 186 H Arterial Blood Ionized Calcium 3.9 L Urine Creatinine Coronavirus (PCR) 02/05/21 02/05/21 02/05/21 11:47 17:39 23:40 WBC RBC Hgb Hct MCV MCH MCHC RDW Plt Count Lymph % (Auto) Lymph # (Auto) Seg Neutrophils % Seg Neuts % (Manual) Lymphocytes % (Manual) Seg Neutrophils # Seg Neutrophils # Man Lymphocytes # (Manual) Eosinophils # (Manual) D-Dimer ABG pH 7.273 L POC ABG pCO2 62.1 H POC ABG pO2 72.0 L ABG pO2 ABG HCO3 ABG O2 Saturation ABG Base Excess ABG Hemoglobin 9.1 L ABG Oxyhemoglobin 91.3 L ABG Sodium ABG Potassium 3.1 L ABG Chloride ABG Glucose 125 H Oxyhemoglobin Carboxyhemoglobin Sodium Potassium Chloride Carbon Dioxide BUN Creatinine Glucose POC Glucose 126 H 126 H Hemoglobin A1c Lactic Acid Calcium Phosphorus Magnesium Ferritin Total Bilirubin AST ALT Lactate Dehydrogenase C-Reactive Protein Albumin Triglycerides Arterial Blood Glucose 125 H Arterial Blood Ionized Calcium 4.0 L Urine Creatinine Coronavirus (PCR) 02/06/21 02/06/21 02/06/21 04:30 04:57 09:45 WBC RBC Hgb Hct MCV MCH MCHC RDW Plt Count Lymph % (Auto) Lymph # (Auto) Seg Neutrophils % Seg Neuts % (Manual) Lymphocytes % (Manual) Seg Neutrophils # Seg Neutrophils # Man Lymphocytes # (Manual) Eosinophils # (Manual) D-Dimer ABG pH 7.159 L 7.138 L* POC ABG pCO2 76.3 H POC ABG pO2 66.9 L ABG pO2 ABG HCO3 ABG O2 Saturation 93.4 L ABG Base Excess -6.0 L ABG Hemoglobin 11.2 L 11.7 L ABG Oxyhemoglobin 88.2 L ABG Sodium ABG Potassium ABG Chloride ABG Glucose 134 H Oxyhemoglobin 91.2 L Carboxyhemoglobin Sodium Potassium Chloride Carbon Dioxide BUN Creatinine Glucose POC Glucose 124 H Hemoglobin A1c Lactic Acid Calcium Phosphorus Magnesium Ferritin Total Bilirubin AST ALT Lactate Dehydrogenase C-Reactive Protein Albumin Triglycerides Arterial Blood Glucose 134 H Arterial Blood Ionized Calcium 3.9 L Urine Creatinine Coronavirus (PCR) 02/06/21 02/06/21 02/06/21 11:11 17:00 17:00 WBC RBC Hgb Hct MCV MCH MCHC RDW Plt Count Lymph % (Auto) Lymph # (Auto) Seg Neutrophils % Seg Neuts % (Manual) Lymphocytes % (Manual) Seg Neutrophils # Seg Neutrophils # Man Lymphocytes # (Manual) Eosinophils # (Manual) D-Dimer ABG pH 7.158 L* POC ABG pCO2 POC ABG pO2 ABG pO2 109.8 H ABG HCO3 28.7 H ABG O2 Saturation ABG Base Excess -2.5 L ABG Hemoglobin ABG Oxyhemoglobin ABG Sodium ABG Potassium ABG Chloride ABG Glucose Oxyhemoglobin 94.5 L Carboxyhemoglobin Sodium Potassium Chloride Carbon Dioxide BUN Creatinine Glucose POC Glucose 120 H Hemoglobin A1c Lactic Acid Calcium Phosphorus Magnesium Ferritin Total Bilirubin AST ALT Lactate Dehydrogenase C-Reactive Protein Albumin Triglycerides 503 H Arterial Blood Glucose Arterial Blood Ionized Calcium Urine Creatinine Coronavirus (PCR) 02/06/21 02/06/21 02/06/21 17:28 20:16 Unknown WBC 13.5 H RBC 2.98 L Hgb 9.3 L Hct 28.6 L MCV 96 H MCH MCHC RDW Plt Count Lymph % (Auto) Lymph # (Auto) Seg Neutrophils % Seg Neuts % (Manual) 87.0 H Lymphocytes % (Manual) 7.0 L Seg Neutrophils # Seg Neutrophils # Man 11.7 H Lymphocytes # (Manual) 0.9 L Eosinophils # (Manual) 0.5 H D-Dimer ABG pH POC ABG pCO2 POC ABG pO2 ABG pO2 ABG HCO3 ABG O2 Saturation ABG Base Excess ABG Hemoglobin ABG Oxyhemoglobin ABG Sodium ABG Potassium ABG Chloride ABG Glucose Oxyhemoglobin Carboxyhemoglobin Sodium Potassium Chloride Carbon Dioxide BUN Creatinine Glucose POC Glucose 147 H 164 H Hemoglobin A1c Lactic Acid Calcium Phosphorus Magnesium Ferritin Total Bilirubin AST ALT Lactate Dehydrogenase C-Reactive Protein Albumin Triglycerides Arterial Blood Glucose Arterial Blood Ionized Calcium Urine Creatinine Coronavirus (PCR) 02/06/21 02/07/21 02/07/21 Unknown 01:21 04:00 WBC 12.0 H RBC 2.61 L Hgb 8.2 L Hct 24.5 L MCV MCH MCHC RDW Plt Count Lymph % (Auto) 8.9 L Lymph # (Auto) 1.1 L Seg Neutrophils % 86.3 H Seg Neuts % (Manual) Lymphocytes % (Manual) Seg Neutrophils # 10.3 H Seg Neutrophils # Man Lymphocytes # (Manual) Eosinophils # (Manual) D-Dimer ABG pH POC ABG pCO2 POC ABG pO2 ABG pO2 ABG HCO3 ABG O2 Saturation ABG Base Excess ABG Hemoglobin ABG Oxyhemoglobin ABG Sodium ABG Potassium ABG Chloride ABG Glucose Oxyhemoglobin Carboxyhemoglobin Sodium Potassium 3.5 L Chloride Carbon Dioxide BUN 58 H Creatinine 6.6 H Glucose 107 H POC Glucose 173 H Hemoglobin A1c Lactic Acid Calcium 6.7 L Phosphorus 8.00 H D Magnesium Ferritin Total Bilirubin AST ALT Lactate Dehydrogenase C-Reactive Protein Albumin Triglycerides Arterial Blood Glucose Arterial Blood Ionized Calcium Urine Creatinine Coronavirus (PCR) 02/07/21 02/07/21 02/07/21 04:00 04:45 11:49 WBC RBC Hgb Hct MCV MCH MCHC RDW Plt Count Lymph % (Auto) Lymph # (Auto) Seg Neutrophils % Seg Neuts % (Manual) Lymphocytes % (Manual) Seg Neutrophils # Seg Neutrophils # Man Lymphocytes # (Manual) Eosinophils # (Manual) D-Dimer ABG pH 7.287 L POC ABG pCO2 64.8 H POC ABG pO2 74.0 L ABG pO2 ABG HCO3 ABG O2 Saturation ABG Base Excess ABG Hemoglobin 9.1 L ABG Oxyhemoglobin 92.0 L ABG Sodium ABG Potassium 2.8 L ABG Chloride ABG Glucose 226 H Oxyhemoglobin Carboxyhemoglobin Sodium Potassium Chloride Carbon Dioxide BUN Creatinine Glucose POC Glucose 170 H Hemoglobin A1c Lactic Acid Calcium Phosphorus 5.50 H D Magnesium Ferritin Total Bilirubin AST ALT Lactate Dehydrogenase C-Reactive Protein Albumin Triglycerides Arterial Blood Glucose 226 H Arterial Blood Ionized Calcium 3.7 L Urine Creatinine Coronavirus (PCR) 02/07/21 02/07/21 02/07/21 13:48 17:45 23:02 WBC RBC Hgb Hct MCV MCH MCHC RDW Plt Count Lymph % (Auto) Lymph # (Auto) Seg Neutrophils % Seg Neuts % (Manual) Lymphocytes % (Manual) Seg Neutrophils # Seg Neutrophils # Man Lymphocytes # (Manual) Eosinophils # (Manual) D-Dimer ABG pH POC ABG pCO2 POC ABG pO2 ABG pO2 ABG HCO3 ABG O2 Saturation ABG Base Excess ABG Hemoglobin ABG Oxyhemoglobin ABG Sodium ABG Potassium ABG Chloride ABG Glucose Oxyhemoglobin Carboxyhemoglobin Sodium 136 L Potassium 2.6 L* D Chloride 95.1 L Carbon Dioxide 33 H D BUN 30 H Creatinine 3.6 H Glucose 184 H POC Glucose 172 H 172 H Hemoglobin A1c Lactic Acid Calcium 6.9 L Phosphorus Magnesium Ferritin Total Bilirubin AST ALT Lactate Dehydrogenase C-Reactive Protein Albumin Triglycerides Arterial Blood Glucose Arterial Blood Ionized Calcium Urine Creatinine Coronavirus (PCR) 02/08/21 02/08/21 02/08/21 05:22 06:00 06:00 WBC RBC 2.21 L Hgb 7.2 L Hct 21.0 L MCV 95 H MCH MCHC RDW Plt Count Lymph % (Auto) Lymph # (Auto) Seg Neutrophils % Seg Neuts % (Manual) 87.0 H Lymphocytes % (Manual) 4.0 L Seg Neutrophils # Seg Neutrophils # Man 8.5 H Lymphocytes # (Manual) 0.4 L Eosinophils # (Manual) D-Dimer ABG pH POC ABG pCO2 POC ABG pO2 ABG pO2 ABG HCO3 ABG O2 Saturation ABG Base Excess ABG Hemoglobin ABG Oxyhemoglobin ABG Sodium ABG Potassium ABG Chloride ABG Glucose Oxyhemoglobin Carboxyhemoglobin Sodium 136 L Potassium 2.4 L* Chloride 93.1 L Carbon Dioxide 36 H BUN 43 H Creatinine 5.4 H Glucose 167 H POC Glucose 162 H Hemoglobin A1c Lactic Acid Calcium 6.3 L Phosphorus Magnesium Ferritin Total Bilirubin AST ALT Lactate Dehydrogenase C-Reactive Protein Albumin Triglycerides Arterial Blood Glucose Arterial Blood Ionized Calcium Urine Creatinine Coronavirus (PCR) 02/08/21 02/08/21 02/08/21 11:44 17:53 18:56 WBC RBC Hgb Hct MCV MCH MCHC RDW Plt Count Lymph % (Auto) Lymph # (Auto) Seg Neutrophils % Seg Neuts % (Manual) Lymphocytes % (Manual) Seg Neutrophils # Seg Neutrophils # Man Lymphocytes # (Manual) Eosinophils # (Manual) D-Dimer ABG pH POC ABG pCO2 POC ABG pO2 ABG pO2 ABG HCO3 ABG O2 Saturation ABG Base Excess ABG Hemoglobin ABG Oxyhemoglobin ABG Sodium ABG Potassium ABG Chloride ABG Glucose Oxyhemoglobin Carboxyhemoglobin Sodium Potassium 2.9 L* D Chloride Carbon Dioxide BUN Creatinine Glucose POC Glucose 164 H 154 H Hemoglobin A1c Lactic Acid Calcium Phosphorus Magnesium Ferritin Total Bilirubin AST ALT Lactate Dehydrogenase C-Reactive Protein Albumin Triglycerides Arterial Blood Glucose Arterial Blood Ionized Calcium Urine Creatinine Coronavirus (PCR) 02/08/21 02/08/21 02/09/21 23:24 23:58 03:21 WBC RBC Hgb Hct MCV MCH MCHC RDW Plt Count Lymph % (Auto) Lymph # (Auto) Seg Neutrophils % Seg Neuts % (Manual) Lymphocytes % (Manual) Seg Neutrophils # Seg Neutrophils # Man Lymphocytes # (Manual) Eosinophils # (Manual) D-Dimer ABG pH 7.319 L POC ABG pCO2 63.3 H 68.3 H POC ABG pO2 71.2 L 76.5 L ABG pO2 ABG HCO3 ABG O2 Saturation ABG Base Excess ABG Hemoglobin 8.2 L 7.0 L ABG Oxyhemoglobin 91.8 L 92.2 L ABG Sodium 134.6 L 133.0 L ABG Potassium 2.3 L 3.1 L ABG Chloride 96.0 L 95.0 L ABG Glucose 184 H 154 H Oxyhemoglobin Carboxyhemoglobin Sodium Potassium Chloride Carbon Dioxide BUN Creatinine Glucose POC Glucose 152 H Hemoglobin A1c Lactic Acid Calcium Phosphorus Magnesium Ferritin Total Bilirubin AST ALT Lactate Dehydrogenase C-Reactive Protein Albumin Triglycerides Arterial Blood Glucose 184 H 154 H Arterial Blood Ionized Calcium 3.6 L 3.5 L Urine Creatinine Coronavirus (PCR) 02/09/21 02/09/21 05:10 05:10 WBC RBC 2.14 L Hgb 7.0 L Hct 20.5 L MCV 96 H MCH 33 H MCHC RDW Plt Count Lymph % (Auto) Lymph # (Auto) Seg Neutrophils % Seg Neuts % (Manual) Lymphocytes % (Manual) Seg Neutrophils # Seg Neutrophils # Man Lymphocytes # (Manual) Eosinophils # (Manual) D-Dimer ABG pH POC ABG pCO2 POC ABG pO2 ABG pO2 ABG HCO3 ABG O2 Saturation ABG Base Excess ABG Hemoglobin ABG Oxyhemoglobin ABG Sodium ABG Potassium ABG Chloride ABG Glucose Oxyhemoglobin Carboxyhemoglobin Sodium 135 L Potassium 3.2 L Chloride 91.0 L Carbon Dioxide 32 H BUN 54 H Creatinine 6.6 H Glucose 163 H POC Glucose Hemoglobin A1c Lactic Acid Calcium 6.2 L Phosphorus Magnesium Ferritin Total Bilirubin AST ALT Lactate Dehydrogenase C-Reactive Protein Albumin Triglycerides Arterial Blood Glucose Arterial Blood Ionized Calcium Urine Creatinine Coronavirus (PCR)
[2021-02-09] MEDS ORDERED: POTASSIUM CHLORIDE 20 MEQ PACKET FEEDTUBE ONE (09:00)
[2021-02-09 09:24] LABS: Anisocytosis 1+; Band Neutrophils # (Manual) 0.4 K/mm3; Total Cells Counted 100
[2021-02-09 09:25] LABS: Large Platelets Few; Platelet Estimate Consistent w Auto
[2021-02-09] MEDS: FAMOTIDINE 20 MG/2 ML INJ IV SCH (09:39)
[2021-02-09] MEDS: ENOXAPARIN 120 MG/0.8 ML INJ SUB-Q SCH (09:39)
--- NOTE | 2021-02-09 11:58 | Progress Note ---
Assessment and Plan Assessment and plan: -CCM, nephrology, infectious disease consulted, appreciate recommendations -Antibiotic therapy -COVID-19 PCR positive, Pneumonia on CXR -Steroid therapy, s/p remdesivir -Mechanical ventilation, wean as tolerated -VAP bundle -HD per nephrology -Trend BMP -S/p MIVF -Bilateral lower extremity Doppler ultrasound negative for DVT/SVT -Therapeutic Lovenox -SSI -Long-acting insulin -Accu-Cheks every 6 while on tube feedings -Hold home antihypertensive regimen for now as he is still needing vasopressor support -Blood pressure monitoring per protocol -NaHCO3 gtt -Sedated with Precedex, Ativan, fentanyl DVT/GI prophylaxis: SCDs to bilateral lower extremities while in bed, heparin subcu, PPI Dispo: ICU The high probability of a clinically significant, sudden or life threatening deterioration of the [multi] system(s) required my full and direct attention, intervention and personal management. The aggregate critical care time was [32] minutes. This time is in addition to time spent performing reported procedures but includes the following: [x] Data Review and interpretation [x] Patient assessment and monitoring of vital signs [x] Documentation [x] Medication orders and management History Interval history: This is a 60-year-old male with diabetes mellitus, hypertension, hyperlipidemia, chronic renal insufficiency presents to the emergency department on 01/23 with shortness of breath, fevers chills, loss of smell and taste and body aches for the past 3 days via EMS. Per EMS patient's oxygen saturation on room air was 50% and after being placed on nonrebreather it increased 75%. Upon arrival to the emergency department patient was being bagged by EMS. In the emergency room patient was intubated due to severe hypoxia, increased work of breathing and lethargy. Patient was sedated on propofol and fentanyl. Patient presented with fever, tachycardia, tachypnea and acute hypoxic respiratory failure with PNA on CXR meeting Sepsis criteria. Lab work in the emergency department revealed hyponatremia, hypokalemia, hypochloremia, elevated CR/BUN and CXR showed bilateral pneumonia. Patient was admitted to the hospital service as a COVID-19 PUI with consults to infectious disease, nephrology and critical care medicine. Sepsis COVID-19 pneumonia Bilateral pneumonia Gram Positive cocci bactermia Acute hypoxic respiratory failure Acute kidney injury, HD initiated 02/03 Acidosis Hyperphosphatemia Diabetes mellitus Hypertension Hyperlipidemia Chronic renal insufficiency Elevated D-dimer 01/24/2021: Patient is intubated and sedated, patient is positive for COVID-19 infection. ID was consulted and put on dexamethasone and remdesivir. Patient has DEISI and nephrology is following. Creatinine stable, patient is urinating. Discussed with nephrology and he is okay with remdesivir. Pulmonary critical care is following for his vent setting. PEEP of 8 and FiO2 of 85%. Patient was alert and off sedatives. 01/25/2021; patient is intubated and on mechanical ventilation. Continue with treatment of Covid. Nephrology and ID is following. Pulmonary is following for vent management 01/26: Remains on mechanical ventilation and [facility] increased his PEEP. [facility] has ordered Precedex for sedation. Possibly need to prone this p.m. No acute events reported overnight. This morning his D-dimer is greater than 10,000 and we have started him on Lovenox 120 mg daily. Nutrition has been consulted for initiation of tube feedings. Patient remains sedated on propofol 40 and fentanyl for the time my examination this morning. 01/27: Continue Lovenox, remdesivir and empiric antibiotics. Patient had a T-max of 101 overnight. The time of examination patient is on CMV 500/18/14/0.61. Kidney function slightly worsened. Sedated on fentanyl ground-level fall and Precedex. Nephrology has increased IV fluids to 100 ml/hr. Continue to trend BMP and CBC. Sedation vacation attempt by RN this AM. 01/28: Patient completed antibiotics today [facility] will paralyze patient and increase sedation. PICC line ordered for possible vasopressor therapy need. Patient's D-dimer remains greater than 10,000 and he still has hyperchloremia. Patient's kidney function has improved today. May need to prone the patient if no improvement in oxygenation is noted in the next 24 hours. The time of my examination patient is sedated with propofol, fentanyl and Precedex and is on assist control 500/18/16/0.80 hypoxic on ABG on 60% FiO2. 01/29: Patient was started on Nimbex yesterday and his ABG this morning showed respiratory acidosis with hypercapnia and his respiratory rate was increased. We will obtain a repeat ABG this afternoon. This morning patient is hypernatremic, hyperkalemic and hyperchloremic. His potassium has been corrected with the management and will obtain repeat BMP tomorrow. His kidney functions have remained stable and we will await nephrology's input. No acute events reported overnight. This morning the time my examination patient sedated with propofol, Precedex and fentanyl and paralyzed with Nimbex. He is on assist control 500/24/16 0.80. 01/30: This morning patient is hypokalemic again and was given Kayexalate. Maria T ent has hypernatremia and hyper chloremia and his renal function is slightly worse after receiving Lasix yesterday. His D-dimer remains greater than 10,000 and he is still on a paralytic. Patient is sedated on Precedex, fentanyl, propofol. Mechanical ventilation settings seven-point //. [facility] has decided to continue paralytics for 48 more hours and will attempt proning the patient. Increased free water flushes 300 cc every 4 hours. Patient states has restarted his antibiotics cefepime and vancomycin and recultured. 01/31/21 Hyperkalemia, Treated 02/01/21 Hyperkalemia, Treated 02/02: Patient's kidney function continues to worsen and a stat BMP this morning shows BUN/creatinine 20/6.1 and he remains hypocalcemic and hypernatremic, hypokalemic and hypochloremic. Patient received 2 g of calcium gluconate and Kayexalate and his repeat potassium was 4.3 this afternoon. He remains antib iotic therapy and steroids. Nephrology has placed the patient on bicarb drip given metabolic acidosis and has decided to hold off hemodialysis till tomorrow.The time my examination patient is sedated on fentanyl, Precedex and on assist control 500/20/12/0.70. s/p paralytic. 02/03: Today patient's ABG shows respiratory acidosis however it is improving, hypernatremia, hyperchloremia, metabolic acidosis on BMP, worsening kidney function BUN/creatinine 130/9.2 with hyperphosphatemia. Patient received a Vas- Cath to his right IJ for initiation of dialysis. At the time of my examination patient remains sedated on fentanyl, propofol and Precedex with vasopressor support with Levophed at 2. 02/04: At the time of examination patient was on assist control tidal volume 500, rate 40, PEEP of 12, FiO2 85%. Patient had a T-max of 100.9 and infectious disease has stopped his vancomycin given negative MRSA. This afternoon patient respiked his temperature and was pancultured again. Patient was started on hemodialysis yesterday and will receive HD again today. Patient is sedated on Precedex, propofol, fentanyl and remains on Levophed. He is on assist control tidal volume 500, rate of 30, PEEP of 12, FiO2 of 85%. Patient still has some respiratory acidosis however his hypernatremia and hyperchloremia have improved and his metabolic acidosis has resolved. Patient will receive hemodialysis to day 02/05: Patient continues to have low-grade fever temp this morning time examination he was on assist control tidal volume 500, and sedated on propofol/fentanyl/Precedex and is on Levophed. Hemodialysis per nephrology. Antibiotics per ID. Patient's blood culture from 02/04 grew gram-positive cocci in clusters in 1/2 bottles and he was started on vancomycin. 02/06: Patients ABG showed respiratory acidosis and the tracings were changed however a repeat ABG showed showed acidosis.[facility] will start a bicarb drip after giving 2 amps of bicarb push. Yesterday patient blood cultures grew gram-positive cocci and he was started on vancomycin. At the time my examination patient was on assist control tidal volume 550, rate 34, PEEP 16, FiO2 90% and sedated on fentanyl, Precedex, propofol elevated pressure support with Levophed. Bilateral lower extremity Doppler ultrasounds done yesterday showed no evidence of DVT/SVT. 02/07/2021; patient is still on the vent with PEEP of 16 and FiO2 of 90%, sedated with fentanyl Precedex and propofol. Patient still requiring Levophed. Patient was sedated yesterday and was given bicarb push. Blood culture grew gram-positive cocci in clusters and he is on vancomycin, will follow identification. 02/08/2021;patient is still on the vent with PEEP of 16 and FiO2 of 90%, sedated with fentanyl Precedex and propofol. Patient still requiring Levophed. Patient was sedated yesterday and was given bicarb push. Blood culture grew gram- positive cocci in clusters and he is on vancomycin, will follow identification. Patient is currently on dialysis. Patient is anemic transfuse if hemoglobin is below 7. 02/09: This morning patient has slight hypokalemia, hypochorlemia, hyponatremia and metabolic alkalosis. CCM will continue bicarb gtt given that the patient does not have HD access at this time. We will replete the potassium and recheck BMP in the AM. We will type and cross in anticipation of PRBC transfusion. This morning he is sedated on Ativan, fentayl, and precedex. Will obtain a triglyceride level today in hopes to resume propofol. Patient is alkalotic and BMP however we will continue with bicarb drip per [facility] given that the patient does not have any access for hemodialysis. Anticipate replacing hemodialysis catheter tomorrow or Tuesday. The time my examination he is on AC TV 550, Rate 34, PeeP 16, FiO2 .65. Hospitalist Physical - Constitutional Vitals: Temp Pulse Resp BP Pulse Ox 99.2 F 101 H 34 H 148/82 94 02/09/21 08:00 02/09/21 11:47 02/09/21 11:45 02/09/21 11:45 02/09/21 11:45 General appearance: Present: no acute distress, well-nourished, other (Sedated on mechanical ventilation) - EENT Eyes: Present: PERRL - Neck Neck: Absent: masses or JVD, cervical LAD - Respiratory Respiratory effort: normal Respiratory: bilateral: diminished - Cardiovascular Rhythm: regular Heart Sounds: Present: S1 & S2. Absent: systolic murmur, diastolic murmur - Extremities Extremities: no ischemia, pulses intact, pulses symmetrical, normal temperature, normal color Extremity abnormal: edema Peripheral Pulses: within normal limits - Abdominal General gastrointestinal: soft, non-tender, non-distended, normal bowel sounds - Integumentary Integumentary: Present: warm, dry - Psychiatric Psychiatric: other (sedated) - Neurologic Neurologic: other (sedated) - Allied Health Allied health notes reviewed: nursing, RT, social work HEART Score - HEART Score Risk factors: 1-2 risk factors Troponin: < normal limit - Critical Actions Critical Actions: 0-3 pts:0.9-1.7%risk of adverse cardiac event.Candidate for discharge Results - Labs CBC & Chem 7: 02/09/21 05:10 02/09/21 05:10 Labs: Laboratory Last Values WBC 10.8 K/mm3 (4.5-11.0) 02/09/21 05:10 RBC 2.14 M/mm3 (3.65-5.03) L 02/09/21 05:10 Hgb 7.0 gm/dl (11.8-15.2) L 02/09/21 05:10 Hct 20.5 % (35.5-45.6) L 02/09/21 05:10 MCV 96 fl (84-94) H 02/09/21 05:10 MCH 33 pg (28-32) H 02/09/21 05:10 MCHC 34 % (32-34) 02/09/21 05:10 RDW 13.6 % (13.2-15.2) 02/09/21 05:10 Plt Count 185 K/mm3 (140-440) 02/09/21 05:10 Lymph % (Auto) 8.9 % (13.4-35.0) L 02/07/21 04:00 O'Brien % (Auto) 3.1 % (0.0-7.3) 02/07/21 04:00 Eos % (Auto) 0.9 % (0.0-4.3) 02/07/21 04:00 Baso % (Auto) 0.8 % (0.0-1.8) 02/07/21 04:00 Lymph # (Auto) 1.1 K/mm3 (1.2-5.4) L 02/07/21 04:00 O'Brien # (Auto) 0.4 K/mm3 (0.0-0.8) 02/07/21 04:00 Eos # (Auto) 0.1 K/mm3 (0.0-0.4) 02/07/21 04:00 Baso # (Auto) 0.1 K/mm3 (0.0-0.1) 02/07/21 04:00 Add Manual Diff Complete 02/09/21 05:10 Total Counted 100 02/09/21 05:10 Seg Neutrophils % 86.3 % (40.0-70.0) H 02/07/21 04:00 Seg Neuts % (Manual) 82.0 % (40.0-70.0) H 02/09/21 05:10 Band Neutrophils % 4.0 % 02/09/21 05:10 Lymphocytes % (Manual) 9.0 % (13.4-35.0) L 02/09/21 05:10 Reactive Lymphs % (Man) 1.0 % 01/27/21 05:29 Monocytes % (Manual) 2.0 % (0.0-7.3) 02/09/21 05:10 Eosinophils % (Manual) 1.0 % (0.0-4.3) 02/09/21 05:10 Basophils % (Manual) 1.0 % (0.0-1.8) 02/06/21 Unknown Metamyelocytes % 2.0 % 02/09/21 05:10 Nucleated RBC % 1.0 % (0.0-0.9) H 02/09/21 05:10 Seg Neutrophils # 10.3 K/mm3 (1.8-7.7) H 02/07/21 04:00 Seg Neutrophils # Man 8.9 K/mm3 (1.8-7.7) H 02/09/21 05:10 Band Neutrophils # 0.4 K/mm3 02/09/21 05:10 Lymphocytes # (Manual) 1.0 K/mm3 (1.2-5.4) L 02/09/21 05:10 Abs React Lymphs (Man) 0.0 K/mm3 02/09/21 05:10 Monocytes # (Manual) 0.2 K/mm3 (0.0-0.8) 02/09/21 05:10 Eosinophils # (Manual) 0.1 K/mm3 (0.0-0.4) 02/09/21 05:10 Basophils # (Manual) 0.0 K/mm3 (0.0-0.1) 02/09/21 05:10 Metamyelocytes # 0.2 K/mm3 02/09/21 05:10 Myelocytes # 0.0 K/mm3 02/09/21 05:10 Promyelocytes # 0.0 K/mm3 02/09/21 05:10 Blast Cells # 0.0 K/mm3 02/09/21 05:10 WBC Morphology Not Reportable 02/09/21 05:10 Hypersegmented Neuts Not Reportable 02/09/21 05:10 Hyposegmented Neuts Not Reportable 02/09/21 05:10 Hypogranular Neuts Not Reportable 02/09/21 05:10 Smudge Cells Not Reportable 02/09/21 05:10 Toxic Granulation Not Reportable 02/09/21 05:10 Toxic Vacuolation Not Reportable 02/09/21 05:10 Dohle Bodies Not Reportable 02/09/21 05:10 Pelger-Huet Anomaly Not Reportable 02/09/21 05:10 Fátima Rods Not Reportable 02/09/21 05:10 Platelet Estimate Consistent w auto 02/09/21 05:10 Clumped Platelets Not Reportable 02/09/21 05:10 Plt Clumps, EDTA Not Reportable 02/09/21 05:10 Large Platelets Few 02/09/21 05:10 Giant Platelets Not Reportable 02/09/21 05:10 Platelet Satelliting Not Reportable 02/09/21 05:10 Plt Morphology Comment Not Reportable 02/09/21 05:10 RBC Morphology Not Reportable 02/09/21 05:10 Dimorphic RBCs Not Reportable 02/09/21 05:10 Polychromasia Few 02/09/21 05:10 Hypochromasia Not Reportable 02/09/21 05:10 Poikilocytosis Not Reportable 02/09/21 05:10 Anisocytosis 1+ 02/09/21 05:10 Microcytosis Not Reportable 02/09/21 05:10 Macrocytosis Not Reportable 02/09/21 05:10 Spherocytes Not Reportable 02/09/21 05:10 Pappenheimer Bodies Not Reportable 02/09/21 05:10 Sickle Cells Not Reportable 02/09/21 05:10 Target Cells Not Reportable 02/09/21 05:10 Tear Drop Cells Not Reportable 02/09/21 05:10 Ovalocytes Not Reportable 02/09/21 05:10 Helmet Cells Not Reportable 02/09/21 05:10 Potter-Peavine Bodies Not Reportable 02/09/21 05:10 [place] Rings Not Reportable 02/09/21 05:10 Occidental Cells Not Reportable 02/09/21 05:10 Bite Cells Not Reportable 02/09/21 05:10 Crenated Cell Not Reportable 02/09/21 05:10 Elliptocytes Not Reportable 02/09/21 05:10 Acanthocytes (Spur) Not Reportable 02/09/21 05:10 Rouleaux Not Reportable 02/09/21 05:10 Hemoglobin C Crystals Not Reportable 02/09/21 05:10 Schistocytes Not Reportable 02/09/21 05:10 Malaria parasites Not Reportable 02/09/21 05:10 Aquiles Bodies Not Reportable 02/09/21 05:10 Hem Pathologist Commnt No 02/09/21 05:10 D-Dimer > 39012 ng/mlDDU (0-234) H 01/30/21 04:00 ABG pH 7.319 (7.320-7.450) L 02/09/21 03:21 POC ABG pCO2 68.3 mmHg (32.0-48.0) H 02/09/21 03:21 ABG pCO2 82.8 mm Hg 02/06/21 17:00 POC ABG pO2 76.5 mmHg (83-108) L 02/09/21 03:21 ABG pO2 109.8 mm Hg (80.0-90.0) H 02/06/21 17:00 POC ABG HCO3 34.3 02/09/21 03:21 ABG HCO3 28.7 mmol/L (20.0-26.0) H 02/06/21 17:00 ABG O2 Saturation 93.6 (0-100) 02/09/21 03:21 ABG O2 Content 20.1 (0.0-44) 02/06/21 17:00 POC ABG Base Excess 7.3 02/09/21 03:21 ABG Base Excess -2.5 mmol/L (-2.0-3.0) L 02/06/21 17:00 ABG Hemoglobin 7.0 (12.0-17.5) L 02/09/21 03:21 ABG Oxyhemoglobin 92.2 (94-98) L 02/09/21 03:21 ABG Carboxyhemoglobin 1.5 % (0.0-5.0) 02/06/21 17:00 ABG Methemoglobin 0 (0.0-1.5) 02/09/21 03:21 ABG Sodium 133.0 mmol/L (136.0-145.0) L 02/09/21 03:21 ABG Potassium 3.1 mmol/L (3.40-4.50) L 02/09/21 03:21 ABG Chloride 95.0 mmol/L (98-107) L 02/09/21 03:21 ABG Glucose 154 mg/dL (65-95) H 02/09/21 03:21 Oxyhemoglobin 94.5 % (95.0-99.0) L 02/06/21 17:00 Carboxyhemoglobin 1.5 (0.5-1.5) 02/09/21 03:21 FiO2 90 % 02/06/21 17:00 FiO2 % 70.0 02/09/21 03:21 Sodium 135 mmol/L (137-145) L 02/09/21 05:10 Potassium 3.2 mmol/L (3.6-5.0) L 02/09/21 05:10 Chloride 91.0 mmol/L (98-107) L 02/09/21 05:10 Carbon Dioxide 32 mmol/L (22-30) H 02/09/21 05:10 Anion Gap 15 mmol/L 02/09/21 05:10 BUN 54 mg/dL (9-20) H 02/09/21 05:10 Creatinine 6.6 mg/dL (0.8-1.3) H 02/09/21 05:10 Estimated GFR 10 ml/min 02/09/21 05:10 BUN/Creatinine Ratio 8 % 02/09/21 05:10 Glucose 163 mg/dL (75-100) H 02/09/21 05:10 POC Glucose 149 mg/dL (70-105) H 02/09/21 06:04 Hemoglobin A1c 6.3 % (4-6) H 02/02/21 16:00 Lactic Acid 1.90 mmol/L (0.7-2.0) 01/24/21 14:38 Calcium 6.2 mg/dL (8.4-10.2) L 02/09/21 05:10 Phosphorus 3.60 mg/dL (2.5-4.5) D 02/08/21 06:00 Magnesium 2.20 mg/dL (1.7-2.3) 02/04/21 04:45 Ferritin 763.9 ng/mL (30.0-300.0) H 01/30/21 04:00 Total Bilirubin 1.50 mg/dL (0.1-1.2) H 01/26/21 05:47 AST 37 units/L (5-40) 01/26/21 05:47 ALT 29 units/L (7-56) 01/26/21 05:47 Alkaline Phosphatase 70 units/L (35-129) 01/26/21 05:47 Lactate Dehydrogenase 424 units/L (91-180) H 01/30/21 04:00 C-Reactive Protein 23.90 mg/dL (0.00-1.30) H 01/30/21 04:00 Total Protein 7.2 g/dL (6.3-8.2) 01/26/21 05:47 Albumin 2.2 g/dL (3.9-5) L 01/26/21 05:47 Albumin/Globulin Ratio 0.4 % 01/26/21 05:47 Triglycerides 503 mg/dL (2-149) H 02/06/21 17:00 Procalcitonin 0.92 ng/mL (<0.15) 01/22/21 22:57 Arterial Blood Glucose 154 mg/dL (65-95) H 02/09/21 03:21 Arterial Blood Ionized Calcium 3.5 mg/dL (4.6-5.3) L 02/09/21 03:21 Urine Color Nehal (Yellow) 01/22/21 22:39 Urine Turbidity Cloudy (Clear) 01/22/21 22:39 Urine pH 5.0 (5.0-7.0) 01/22/21 22:39 Ur Specific [place] 1.017 (1.003-1.030) 01/22/21 22:39 Urine Protein 100 mg/dl mg/dL (Negative) 01/22/21 22:39 Urine Glucose (UA) Neg mg/dL (Negative) 01/22/21 22:39 Urine Ketones Neg mg/dL (Negative) 01/22/21 22:39 Urine Blood Mod (Negative) 01/22/21 22:39 Urine Nitrite Neg (Negative) 01/22/21 22:39 Urine Bilirubin Neg (Negative) 01/22/21 22:39 Urine Urobilinogen 2.0 mg/dL (<2.0) 01/22/21 22:39 Ur Leukocyte Esterase Mod (Negative) 01/22/21 22:39 Urine WBC (Auto) < 1.0 /HPF (0.0-6.0) 01/22/21 22:39 Urine RBC (Auto) < 1.0 /HPF (0.0-6.0) 01/22/21 22:39 U Epithel Cells (Auto) < 1.0 /HPF (0-13.0) 01/22/21 22:39 Urine Osmolality 416 Mosm/kg 01/30/21 12:15 Urine Total Volume 2300 ml 01/30/21 12:00 Urine Creatinine 53.0 mg/dL (0.1-20.0) H 01/30/21 12:00 Ur Creatinine 24 Hour 1.2 (0.8-2.8) 01/30/21 12:00 Urine Sodium 28 mmol/L 01/22/21 22:39 Nasal Screen MRSA (PCR) Negative (Negative) 02/02/21 13:20 Random Vancomycin 13.7 ug/mL (0-40.0) 02/07/21 10:40 Coronavirus (PCR) Positive (Negative) A 01/23/21 08:41 Hepatitis A IgM Ab Non-reactive (NonReactive) 02/03/21 Unknown Hep Bs Antigen Non-reactive (Negative) 02/03/21 Unknown Hep B Core IgM Ab Non-reactive (NonReactive) 02/03/21 Unknown Hepatitis C Antibody Non-reactive (NonReactive) 02/03/21 Unknown Microbiology: Microbiology 02/08/21 15:12 Peripheral/Venous Blood Culture - Preliminary Culture in Progress 02/08/21 15:12 Peripheral/Venous Blood Culture - Preliminary Culture in Progress 02/04/21 16:01 Peripheral/Venous Blood Culture - Preliminary Coag Negative Staphylococcus 02/04/21 16:01 Peripheral/Venous Blood Culture - Preliminary Coag Negative Staphylococcus Black/IV: Voiding Method Indwelling Catheter Active Medications - Current Medications Current Medications: Generic Name Dose Route Start Last Admin Trade Name Freq PRN Reason Stop Dose Admin Acetaminophen 650 mg 01/23/21 02:25 Acetaminophen 650 Mg Rect Supp TN Q4H PRN Pain, Mild (1-3) Acetaminophen 650 mg 01/24/21 12:58 02/09/21 04:06 Acetaminophen 325 Mg/10.15 Ml Oral Liqd Unit Dose FEEDTUBE 650 mg Q6H PRN Administration Pain, Mild (1-3) Lipase/Protease/Amylase 1 each 01/26/21 14:25 Lipase 10,500/Protease 25,000/Amylase 43,750 (Units) Dr Cap FEEDTUBE PRN PRN For Clogged Feeding Tube Dextrose 50 ml 01/27/21 07:24 Dextrose 50% In Water (25gm) 50 Ml Syringe IV Q30MIN PRN Hypoglycemia Protocol Enoxaparin Sodium 120 mg 01/26/21 11:00 02/09/21 09:39 Enoxaparin 120 Mg/0.8 Ml Inj SUB-Q 120 mg Q24HR CECE Administration Famotidine 20 mg 01/24/21 10:00 02/09/21 09:39 Famotidine 20 Mg/2 Ml Inj IV 20 mg DAILY CECE Administration Fentanyl 50 mcg 01/22/21 22:39 Fentanyl 100 Mcg/2 Ml Inj IV Q10MIN PRN ANALGESIA Hydrophilic Ointment 1 applic 01/22/21 22:39 Lip Therapy Vaseline TP Q2HR PRN Dry Lips Fentanyl Citrate 2,000 mcg in 100 mls @ 6.124 mls/hr 01/22/21 23:00 02/09/21 11:27 Fentanyl Drip Premix IV 2 mcg/kg/hr TITR CECE 12.247 mls/hr Administration Protocol 1 MCG/KG/HR Propofol 1,000 mg in 100 mls @ 3.674 mls/hr 01/22/21 23:45 02/06/21 18:37 Diprivan 10 Mg/Ml IV 0 mcg/kg/min TITR CECE 0 mls/hr Titration Protocol 5 MCG/KG/MIN Norepinephrine 4 mg in 250 mls @ 7.5 mls/hr 01/28/21 14:00 02/08/21 06:08 Levophed Drip 4 Mg/Ns 250 Ml IV 0 mcg/min TITR CECE 0 mls/hr Titration Protocol 2 MCG/MIN Dexmedetomidine HCl 1,000 mcg/ 260 mls @ 6.368 mls/hr 01/30/21 20:00 02/09/21 11:27 Sodium Chloride IV 1.4 mcg/kg/hr TITRATE CECE 44.579 mls/hr Administration Protocol 0.2 MCG/KG/HR Sodium Bicarbonate 150 meq/ 1,150 mls @ 100 mls/hr 02/06/21 11:30 02/09/21 11:35 Dextrose IV Infused DIRECT CECE Infusion Sodium Chloride 100 mls @ 999 mls/hr 02/06/21 13:30 Nacl 0.9% IV [place] PRN Hypotension Lorazepam 100 mg/ Sodium 100 mls @ 1 mls/hr 02/06/21 19:00 02/07/21 03:40 Chloride/ Miscellaneous IV 1 mg/hr Information TITR CECE 1 mls/hr Administration Protocol 1 MG/HR Multi-Ingred Cream/Lotion/Oil/Oint 1 applic 01/22/21 22:39 02/01/21 09:33 Mineral Oil/Petrolatum, White Ophth Oint 3.5 Gm OU 1 applic Q4HR PRN Administration Dry Eye(s) Ondansetron HCl 4 mg 01/23/21 02:17 Ondansetron 4 Mg/2 Ml Inj IV Q8H PRN Nausea And Vomiting Simple Syrup 15 ml 01/26/21 14:25 Simple Syrup 15 Ml FEEDTUBE PRN PRN Hypoglycemia Simple Syrup 30 ml 01/26/21 14:25 Simple Syrup 15 Ml FEEDTUBE PRN PRN Hypoglycemia Sodium Bicarbonate 325 mg 01/26/21 14:25 Sodium Bicarbonate 325 Mg Tab FEEDTUBE PRN PRN For Clogged Feeding Tube Nutrition/Malnutrition Assess - Dietary Evaluation Nutrition/Malnutrition Findings: Nutrition Notes Start: 01/26/21 13:59 Freq: Status: Active Protocol: Document 02/05/21 12:59 CW (Rec: 02/05/21 13:09 CW [id number]) Nutrition Notes Initial or Follow up Reassessment Current Diagnosis Acute Kidney Injury,Diabetes, Sepsis,Hypertension, Respiratory Failure, Hyperlipidemia Other Pertinent Diagnosis on HD, COVID-19 (+), bilat pneu Current Diet TF - Nepro at 30 ml/hr Labs/Tests 02/04/2021 Na 149 BG 139 BUN 99 Cr 8.5 P 8.4 Pertinent Medications levophed propfol at 11.022(290 kcal provided) Height 5 ft 8 in Weight 131.7 kg Blanding Body Weight (kg) 70.00 BMI 44.1 Weight change and time frame weight stable Weight Status Morbidly Obese Subjective/Other Information F/U for proning, HD, and vent status. Propofol has been increased at this time. Will adjust accordingly. Weight stable. Pt continues to receive HD daily. TF running at goal of 30 at this time. TF is being well tolerated. Burn Absent Trauma Absent GI Symptoms None Difficulty In Swallowing Skin Integrity/Comment Intact Current % PO Negligible Minimum of two criteria No physical signs of malnutrition #1 Nutrition Diagnosis Inadequate oral intake Diagnosis Progress(for reassessment Continues documentation) Is patient on ventilator? Yes Is Patient Ambulatory and/or Out of Bed No REE-([place]-St. Jeor-confined to bed) 2514.168 Kcal/Kg value to use for calculation 14 Approximate Energy Requirements Using 1844 kcal/Kg Calculation Used for Recommendations Kcal/kg Additional Notes Pro needs >1.2g/kg adjBW: > 115g/day for HD needs Fluid needs per MD Nutrition Intervention Change Diet Order: Increase TF regimen and flush Nutrition Support: If running continuous feed x 24 hrs without proning: Nepro at 36 ml/hr with a free water flush of 400ml water flush q4h for hypernatremia, Once resolved resume flush of 200 ml q4h. If in prone position x 12/hr day: While in prone position: Nepro at 20 ml/hr with free water flush of 100 ml q4h or per MD order. While in supine position: Nepro at 65 ml/hr with a free water flush of 400 ml q4h for hypernatremia. Once hypernatremia resolve, free water flush of 200 ml q4h or per MD order. Kcal 1,555 Protein (gm) 70 Fluid (mL) 628 Goal #1 TF tolerance Goal #2 TF to meet at least 75% energy and pro needs Anticipated Discharge Needs: unable to determine at this time Follow-Up By: 02/10/21 Additional Comments F/U proning, propofol, HD, vent status
[2021-02-09] MEDS: LORazepam 100 MG in SODIUM CHLORIDE 0.9% 50 ML, EMPTY BAG 0 ML IV SCH (14:45)
--- NOTE | 2021-02-09 15:22 | Progress Note ---
Assessment and Plan Assessment: Acute Hypoxic respiratory failure COVID-19 PNA Severe sepsis with septic shock Acute kidney injury secondary to ATN Hyperkalemia Hypernatremia DM2 on insulin Anemia Plan: Judith labs reviewed. Serum creatinine 6.6 today, yesterday's was 5.4. Hemodialysis ordered today for UF and clearance Hypokalemia- increase K bath to 3.5 with HD Initiated on HD on 02/03/21 s/p Right IJ Trialysis dialysis catheter placement by Dr Reddy Anemia-Start Epogen 20,000 units with HD Strict I&O's monitoring Renally dose medications Assess dialysis needs daily Monitor for renal recovery Subjective Date of service: 02/09/21 Principal diagnosis: DEISI Interval history: Patient not directly seen or examined due to being with active COVID-19 infection to limit/reduce risk of exposure and or transmission of the disease in this pandemic and due to limited PPE resources. Objective - Vital Signs Vital signs: Vital Signs - 12hr 02/09/21 02/09/21 02/09/21 03:30 03:45 04:00 Temperature 101.0 F H Pulse Rate 97 H 99 H 98 H Pulse Rate [ 98 H From Monitor] Respiratory 34 H 33 H 35 H Rate Blood Pressure 115/67 116/71 117/63 O2 Sat by Pulse 98 98 98 Oximetry 02/09/21 02/09/21 02/09/21 04:15 04:30 04:35 Temperature Pulse Rate 100 H 104 H 103 H Pulse Rate [ From Monitor] Respiratory 34 H 34 H Rate Blood Pressure 114/62 122/63 122/63 O2 Sat by Pulse 97 97 97 Oximetry 02/09/21 02/09/21 02/09/21 04:45 05:00 05:15 Temperature Pulse Rate 104 H 102 H 100 H Pulse Rate [ From Monitor] Respiratory 34 H 34 H 34 H Rate Blood Pressure 111/61 112/58 100/73 O2 Sat by Pulse 96 97 98 Oximetry 02/09/21 02/09/21 02/09/21 05:30 05:46 06:00 Temperature Pulse Rate 101 H 99 H 99 H Pulse Rate [ From Monitor] Respiratory 31 H 33 H 34 H Rate Blood Pressure 100/73 122/71 131/69 O2 Sat by Pulse 95 96 96 Oximetry 02/09/21 02/09/21 02/09/21 06:15 06:30 06:36 Temperature Pulse Rate 97 H 99 H Pulse Rate [ 98 H From Monitor] Respiratory 34 H 34 H 34 H Rate Blood Pressure 143/70 150/75 O2 Sat by Pulse 96 97 95 Oximetry 02/09/21 02/09/21 02/09/21 06:45 07:00 07:16 Temperature Pulse Rate 96 H 96 H 93 H Pulse Rate [ From Monitor] Respiratory 34 H 34 H 34 H Rate Blood Pressure 158/68 140/69 134/65 O2 Sat by Pulse 96 97 97 Oximetry 02/09/21 02/09/21 02/09/21 07:30 07:45 07:49 Temperature Pulse Rate 92 H 88 89 Pulse Rate [ From Monitor] Respiratory 34 H 34 H Rate Blood Pressure 123/59 124/62 150/85 O2 Sat by Pulse 97 98 95 Oximetry 02/09/21 02/09/21 02/09/21 08:00 08:15 08:30 Temperature 99.2 F Pulse Rate 89 88 87 Pulse Rate [ 86 From Monitor] Respiratory 12 34 H 34 H Rate Blood Pressure 150/85 127/71 125/65 O2 Sat by Pulse 97 96 96 Oximetry 02/09/21 02/09/21 02/09/21 08:45 09:00 09:15 Temperature Pulse Rate 86 86 86 Pulse Rate [ From Monitor] Respiratory 34 H 34 H 34 H Rate Blood Pressure 122/64 120/63 120/65 O2 Sat by Pulse 96 96 96 Oximetry 02/09/21 02/09/21 02/09/21 09:30 09:45 10:00 Temperature Pulse Rate 85 87 88 Pulse Rate [ From Monitor] Respiratory 34 H 34 H 34 H Rate Blood Pressure 117/62 127/70 131/68 O2 Sat by Pulse 97 98 98 Oximetry 02/09/21 02/09/21 02/09/21 10:15 10:30 10:45 Temperature Pulse Rate 89 88 88 Pulse Rate [ From Monitor] Respiratory 34 H 34 H 34 H Rate Blood Pressure 127/70 133/71 128/69 O2 Sat by Pulse 98 98 97 Oximetry 02/09/21 02/09/21 02/09/21 11:00 11:15 11:30 Temperature Pulse Rate 87 92 H 97 H Pulse Rate [ From Monitor] Respiratory 34 H 35 H 34 H Rate Blood Pressure 127/69 139/78 153/83 O2 Sat by Pulse 98 93 94 Oximetry 04/10/2002/09/21 02/09/21 11:32 11:45 11:47 Temperature Pulse Rate 88 99 H 101 H Pulse Rate [ From Monitor] Respiratory 34 H Rate Blood Pressure 127/69 148/82 O2 Sat by Pulse 95 94 Oximetry 02/09/21 02/09/21 02/09/21 12:00 12:15 12:30 Temperature 99.0 F Pulse Rate 100 H 100 H 101 H Pulse Rate [ From Monitor] Respiratory 34 H 34 H 34 H Rate Blood Pressure 156/81 148/79 149/75 O2 Sat by Pulse 95 95 94 Oximetry 02/09/21 02/09/21 12:45 13:00 Temperature Pulse Rate 99 H 98 H Pulse Rate [ From Monitor] Respiratory 34 H 35 H Rate Blood Pressure 140/70 140/72 O2 Sat by Pulse 94 94 Oximetry - Lab 02/09/21 05:10 02/09/21 05:10 Most recent lab results ABG pH 7.319 (7.320-7.450) L 02/09/21 03:21 ABG pCO2 82.8 mm Hg 02/06/21 17:00 ABG pO2 109.8 mm Hg (80.0-90.0) H 02/06/21 17:00 ABG HCO3 28.7 mmol/L (20.0-26.0) H 02/06/21 17:00 ABG O2 Saturation 93.6 (0-100) 02/09/21 03:21 Calcium 6.2 mg/dL (8.4-10.2) L 02/09/21 05:10 Phosphorus 3.60 mg/dL (2.5-4.5) D 02/08/21 06:00 Magnesium 2.20 mg/dL (1.7-2.3) 02/04/21 04:45 Urine Creatinine 53.0 mg/dL (0.1-20.0) H 01/30/21 12:00 Urine Sodium 28 mmol/L 01/22/21 22:39 Medications & Allergies - Medications Allergies/Adverse Reactions: Allergies No Known Allergies Allergy (Unverified 03/12/20 13:41) Home Medications: Home Medications Medication Instructions Recorded Confirmed Last Taken Type Clindamycin [Clindamycin CAP] 300 mg PO Q8H #21 cap 03/12/20 Unknown Rx Insulin NPH/Regular [Novolin 70/30] 18 unit SUB-Q TIDAC #1 vial 03/12/20 Unknown Rx Syringe-Needle,Insulin,0.5 ml 1 box MC TID #1 box 03/12/20 Unknown Rx [Insulin Syringe/Needle 0.5 ML] Active Medications: Generic Name Dose Route Start Last Admin Trade Name Freq PRN Reason Stop Dose Admin Acetaminophen 650 mg 01/23/21 02:25 Acetaminophen 650 Mg Rect Supp [place] Q4H PRN Pain, Mild (1-3) Acetaminophen 650 mg 01/24/21 12:58 02/09/21 04:06 Acetaminophen 325 Mg/10.15 Ml Oral Liqd Unit Dose FEEDTUBE 650 mg Q6H PRN Administration Pain, Mild (1-3) Lipase/Protease/Amylase 1 each 01/26/21 14:25 Lipase 10,500/Protease 25,000/Amylase 43,750 (Units) Dr Cap FEEDTUBE PRN PRN For Clogged Feeding Tube Dextrose 50 ml 01/27/21 07:24 Dextrose 50% In Water (25gm) 50 Ml Syringe IV Q30MIN PRN Hypoglycemia Protocol Enoxaparin Sodium 120 mg 01/26/21 11:00 02/09/21 09:39 Enoxaparin 120 Mg/0.8 Ml Inj SUB-Q 120 mg Q24HR CECE Administration Famotidine 20 mg 01/24/21 10:00 02/09/21 09:39 Famotidine 20 Mg/2 Ml Inj IV 20 mg DAILY CECE Administration Fentanyl 50 mcg 01/22/21 22:39 Fentanyl 100 Mcg/2 Ml Inj IV Q10MIN PRN ANALGESIA Hydrophilic Ointment 1 applic 01/22/21 22:39 Lip Therapy Vaseline TP Q2HR PRN Dry Lips Fentanyl Citrate 2,000 mcg in 100 mls @ 6.124 mls/hr 01/22/21 23:00 02/09/21 14:43 Fentanyl Drip Premix IV 2 mcg/kg/hr TITR CECE 12.247 mls/hr Administration Protocol 1 MCG/KG/HR Propofol 1,000 mg in 100 mls @ 3.674 mls/hr 01/22/21 23:45 02/06/21 18:37 Diprivan 10 Mg/Ml IV 0 mcg/kg/min TITR CECE 0 mls/hr Titration Protocol 5 MCG/KG/MIN Norepinephrine 4 mg in 250 mls @ 7.5 mls/hr 01/28/21 14:00 02/08/21 06:08 Levophed Drip 4 Mg/Ns 250 Ml IV 0 mcg/min TITR CECE 0 mls/hr Titration Protocol 2 MCG/MIN Dexmedetomidine HCl 1,000 mcg/ 260 mls @ 6.368 mls/hr 01/30/21 20:00 02/09/21 11:27 Sodium Chloride IV 1.4 mcg/kg/hr TITRATE CECE 44.579 mls/hr Administration Protocol 0.2 MCG/KG/HR Sodium Bicarbonate 150 meq/ 1,150 mls @ 100 mls/hr 02/06/21 11:30 02/09/21 14:46 Dextrose IV 100 mls/hr DIRECT CECE Administration Sodium Chloride 100 mls @ 999 mls/hr 02/06/21 13:30 Nacl 0.9% IV SAGRARIO PRN Hypotension Lorazepam 100 mg/ Sodium 100 mls @ 1 mls/hr 02/06/21 19:00 02/09/21 14:45 Chloride/ Miscellaneous IV 1 mg/hr Information TITR CECE 1 mls/hr Administration Protocol 1 MG/HR Multi-Ingred Cream/Lotion/Oil/Oint 1 applic 01/22/21 22:39 02/01/21 09:33 Mineral Oil/Petrolatum, White Ophth Oint 3.5 Gm OU 1 applic Q4HR PRN Administration Dry Eye(s) Ondansetron HCl 4 mg 01/23/21 02:17 Ondansetron 4 Mg/2 Ml Inj IV Q8H PRN Nausea And Vomiting Simple Syrup 15 ml 01/26/21 14:25 Simple Syrup 15 Ml FEEDTUBE PRN PRN Hypoglycemia Simple Syrup 30 ml 01/26/21 14:25 Simple Syrup 15 Ml FEEDTUBE PRN PRN Hypoglycemia Sodium Bicarbonate 325 mg 01/26/21 14:25 Sodium Bicarbonate 325 Mg Tab FEEDTUBE PRN PRN For Clogged Feeding Tube
--- NOTE | 2021-02-09 17:20 | Progress Note ---
Assessment and Plan Cultures: Blood culture 02/08/2021 no growth today SARS CoV2 PCR positive 01/22/2021 respiratory culture: Usual respiratory dillon Blood Culture 01/30/2021 no growth today Urine culture 01/30/2021 no growth today Sputum culture 01/30/2021 usual respiratory dillon Blood culture 02/04/2021 coag negative staph 2 of 4 Urine culture 02/04/2021 no growth Sputum culture 02/04/2021 Maegan albicans Assessment: 60 year old male with history of morbid obesity admitted on 01/22/2021 secondary to 3-day history of worsening shortness of breath associated with fever, chills, loss of smell and taste: #Severe sepsis with septic shock: remains with intermittent high fever now off pressors. Right IJ removed. Likely due to GPC bacteremia. Initial sepsis due to bilateral pneumonia. Urinalysis negative. Procalcitonin elevated in the setting of DEISI. Leg US no DVT. #Coag-neg Staph bacteremia: new blood culture on 02/04/2021 with GPC 2 of 4 bottles, possible real. #Critical COVID-19 pneumonia: Patient remains intubated. Chest x-ray with bilateral airspace disease. Inflammatory markers worsening, D-dimer>10K. CRP 40-->23. Completed remdesivir. #Acute respiratory failure: Remains on the ventilator #Transaminitis: Likely secondary to COVID-19. #DEISI: Worsening, On hemodialysis Recommendations: -Repeat blod cx today -Continue vancomycin D5 for coag negative staph bacteremia. Complete 7 days. -Monitor fever G. Divya Walker MD [facility] O: [phone] F: [phone] Subjective Date of service: 02/09/21 Principal diagnosis: DEISI Interval history: Febrile to 101 with a white count 10.8. Remains intubated. Objective - Exam Narrative Exam: General appearance: Sedated, intubated Eyes: anicteric sclerae, moist conjunctivae; no lid-lag; PERRLA HENT: Normocephalic, Atraumatic; normal external ears, nares open, oropharynx limited Neck: supple, tracheal midline, no JVD Lungs: Bilateral coarse breath sounds CV: Tachycardic Abdomen: Soft, obese, nontender Extremities: Bilateral leg edema Skin: No rash. Psych: Sedated Neuro: Sedated - Constitutional Vitals: Vital Signs Temp Pulse Resp BP Pulse Ox 99.0 F 97 H 34 H 136/74 95 02/09/21 12:00 02/09/21 16:15 02/09/21 16:15 02/09/21 16:15 02/09/21 16:15 Temperature -Last 24 Hours Temperature 99.0 F Temperature 99.2 F Temperature 101.0 F Temperature 100.1 F Temperature 100.4 F - Labs CBC & Chem 7: 02/09/21 05:10 02/09/21 05:10 Labs: Abnormal lab results 02/08/21 02/08/21 02/08/21 Range/Units 17:53 18:56 23:24 RBC (3.65-5.03) M/mm3 Hgb (11.8-15.2) gm/dl Hct (35.5-45.6) % MCV (84-94) fl MCH (28-32) pg Seg Neuts % (Manual) (40.0-70.0) % Lymphocytes % (Manual) (13.4-35.0) % Nucleated RBC % (0.0-0.9) % Seg Neutrophils # Man (1.8-7.7) K/mm3 Lymphocytes # (Manual) (1.2-5.4) K/mm3 ABG pH (7.320-7.450) POC ABG pCO2 (32.0-48.0) mmHg POC ABG pO2 (83-108) mmHg ABG Hemoglobin (12.0-17.5) ABG Oxyhemoglobin (94-98) ABG Sodium (136.0-145.0) mmol/L ABG Potassium (3.40-4.50) mmol/L ABG Chloride (98-107) mmol/L ABG Glucose (65-95) mg/dL Sodium (137-145) mmol/L Potassium 2.9 L* D (3.6-5.0) mmol/L Chloride (98-107) mmol/L Carbon Dioxide (22-30) mmol/L BUN (9-20) mg/dL Creatinine (0.8-1.3) mg/dL Glucose (75-100) mg/dL POC Glucose 154 H 152 H (70-105) mg/dL Calcium (8.4-10.2) mg/dL Triglycerides (2-149) mg/dL Arterial Blood Glucose (65-95) mg/dL Arterial Blood Ionized Calcium (4.6-5.3) mg/dL 02/09/21 02/09/21 02/09/21 Range/Units 03:21 05:10 05:10 RBC 2.14 L (3.65-5.03) M/mm3 Hgb 7.0 L (11.8-15.2) gm/dl Hct 20.5 L (35.5-45.6) % MCV 96 H (84-94) fl MCH 33 H (28-32) pg Seg Neuts % (Manual) 82.0 H (40.0-70.0) % Lymphocytes % (Manual) 9.0 L (13.4-35.0) % Nucleated RBC % 1.0 H (0.0-0.9) % Seg Neutrophils # Man 8.9 H (1.8-7.7) K/mm3 Lymphocytes # (Manual) 1.0 L (1.2-5.4) K/mm3 ABG pH 7.319 L (7.320-7.450) POC ABG pCO2 68.3 H (32.0-48.0) mmHg POC ABG pO2 76.5 L (83-108) mmHg ABG Hemoglobin 7.0 L (12.0-17.5) ABG Oxyhemoglobin 92.2 L (94-98) ABG Sodium 133.0 L (136.0-145.0) mmol/L ABG Potassium 3.1 L (3.40-4.50) mmol/L ABG Chloride 95.0 L (98-107) mmol/L ABG Glucose 154 H (65-95) mg/dL Sodium 135 L (137-145) mmol/L Potassium 3.2 L (3.6-5.0) mmol/L Chloride 91.0 L (98-107) mmol/L Carbon Dioxide 32 H (22-30) mmol/L BUN 54 H (9-20) mg/dL Creatinine 6.6 H (0.8-1.3) mg/dL Glucose 163 H (75-100) mg/dL POC Glucose (70-105) mg/dL Calcium 6.2 L (8.4-10.2) mg/dL Triglycerides (2-149) mg/dL Arterial Blood Glucose 154 H (65-95) mg/dL Arterial Blood Ionized Calcium 3.5 L (4.6-5.3) mg/dL 02/09/21 02/09/21 02/09/21 Range/Units 06:04 12:02 13:32 RBC (3.65-5.03) M/mm3 Hgb (11.8-15.2) gm/dl Hct (35.5-45.6) % MCV (84-94) fl MCH (28-32) pg Seg Neuts % (Manual) (40.0-70.0) % Lymphocytes % (Manual) (13.4-35.0) % Nucleated RBC % (0.0-0.9) % Seg Neutrophils # Man (1.8-7.7) K/mm3 Lymphocytes # (Manual) (1.2-5.4) K/mm3 ABG pH (7.320-7.450) POC ABG pCO2 (32.0-48.0) mmHg POC ABG pO2 (83-108) mmHg ABG Hemoglobin (12.0-17.5) ABG Oxyhemoglobin (94-98) ABG Sodium (136.0-145.0) mmol/L ABG Potassium (3.40-4.50) mmol/L ABG Chloride (98-107) mmol/L ABG Glucose (65-95) mg/dL Sodium (137-145) mmol/L Potassium (3.6-5.0) mmol/L Chloride (98-107) mmol/L Carbon Dioxide (22-30) mmol/L BUN (9-20) mg/dL Creatinine (0.8-1.3) mg/dL Glucose (75-100) mg/dL POC Glucose 149 H 147 H (70-105) mg/dL Calcium (8.4-10.2) mg/dL Triglycerides 250 H (2-149) mg/dL Arterial Blood Glucose (65-95) mg/dL Arterial Blood Ionized Calcium (4.6-5.3) mg/dL
[2021-02-10] MEDS ORDERED: MIDODRINE 5 MG TAB PO ONE (00:27)
[2021-02-10] MEDS: ACETAMINOPHEN 325 MG/10.15 ML ORAL LIQD UNIT DOSE FEEDTUBE PRN ×3 (00:42→20:44)
[2021-02-10] MEDS: dexmedeTOMIDine 1,000 MCG in SODIUM CHLORIDE 0.9% 250ML 250 ML IV SCH ×4 (00:46→18:02)
[2021-02-10] MEDS: SODIUM BICARBONATE 150 MEQ in DEXTROSE 5% IN WATER 1,000 ML IV SCH ×2 (02:51→13:30)
[2021-02-10] MEDS: fentaNYL DRIP Premix 2,000 MCG/100 ML BAG IV SCH ×3 (04:08→19:51)
--- NOTE | 2021-02-10 07:34 | Progress Note ---
Assessment and Plan Acute Hypoxic respiratory failure COVID-19 PNA Severe sepsis with septic shock Acute kidney injury secondary to ATN Hyperkalemia Hypernatremia DM2 on insulin Plan: labs are pending, however, no uop. HD tomorrow for clearance and volume removal with high Ca bath after vascath tomorrow by Dr Reddy Assess need for HD on daily basis Initiated on HD on 02/03/21 s/p Right IJ Trialysis dialysis catheter placement by Dr Reddy On free water flushes to 400 ml Strict I&O Renally dose meds Carlton Pitts MD [phone] Subjective Date of service: 02/10/21 Principal diagnosis: DEISI Interval history: was hypotensive last night Objective - Vital Signs Vital signs: Vital Signs - 12hr 02/09/21 02/09/21 02/09/21 19:45 20:00 20:15 Temperature 97.4 F L Pulse Rate 95 H 95 H 92 H Pulse Rate [ 98 H From Monitor] Respiratory 34 H 34 H 34 H Rate Blood Pressure 108/57 110/55 100/52 O2 Sat by Pulse 96 95 96 Oximetry 02/09/21 02/09/21 02/09/21 20:30 20:41 20:45 Temperature Pulse Rate 93 H 88 90 Pulse Rate [ From Monitor] Respiratory 34 H 34 H Rate Blood Pressure 98/52 98/52 100/52 O2 Sat by Pulse 95 95 96 Oximetry 02/09/21 02/09/21 02/09/21 21:00 21:15 21:30 Temperature Pulse Rate 95 H 95 H 94 H Pulse Rate [ From Monitor] Respiratory 34 H 34 H 34 H Rate Blood Pressure 113/60 117/60 115/56 O2 Sat by Pulse 94 94 94 Oximetry 02/09/21 02/09/21 02/09/21 21:45 22:00 22:15 Temperature Pulse Rate 94 H 92 H 92 H Pulse Rate [ From Monitor] Respiratory 34 H 34 H 34 H Rate Blood Pressure 107/59 108/53 100/52 O2 Sat by Pulse 94 95 95 Oximetry 02/09/21 02/09/21 02/09/21 22:30 22:45 23:00 Temperature Pulse Rate 92 H 91 H 90 Pulse Rate [ From Monitor] Respiratory 34 H 34 H 34 H Rate Blood Pressure 96/51 97/50 94/49 O2 Sat by Pulse 96 95 95 Oximetry 02/09/21 02/09/21 02/09/21 23:15 23:30 23:45 Temperature Pulse Rate 90 90 89 Pulse Rate [ From Monitor] Respiratory 34 H 34 H 34 H Rate Blood Pressure 95/49 84/43 82/41 O2 Sat by Pulse 96 96 97 Oximetry 02/09/21 02/10/21 02/10/21 23:58 00:00 00:15 Temperature 99.6 F Pulse Rate 88 89 Pulse Rate [ 98 H From Monitor] Respiratory 34 H 34 H Rate Blood Pressure 78/39 84/45 O2 Sat by Pulse 97 97 Oximetry 02/10/21 02/10/21 02/10/21 00:29 00:30 00:41 Temperature 100.3 F H Pulse Rate 88 89 Pulse Rate [ From Monitor] Respiratory 34 H Rate Blood Pressure 89/49 89/49 O2 Sat by Pulse 96 98 Oximetry 02/10/21 02/10/21 02/10/21 00:45 01:00 01:15 Temperature Pulse Rate 95 H 99 H 98 H Pulse Rate [ From Monitor] Respiratory 34 H 34 H 35 H Rate Blood Pressure 110/62 124/61 121/63 O2 Sat by Pulse 95 94 93 Oximetry 02/10/21 02/10/21 02/10/21 01:30 01:45 02:00 Temperature Pulse Rate 96 H 95 H 93 H Pulse Rate [ From Monitor] Respiratory 34 H 34 H 35 H Rate Blood Pressure 109/55 101/54 100/54 O2 Sat by Pulse 95 96 96 Oximetry 02/10/21 02/10/21 02/10/21 02:15 02:30 02:45 Temperature Pulse Rate 91 H 88 88 Pulse Rate [ From Monitor] Respiratory 34 H 34 H 34 H Rate Blood Pressure 92/52 87/48 93/54 O2 Sat by Pulse 97 97 97 Oximetry 02/10/21 02/10/21 02/10/21 03:10 03:15 03:30 Temperature Pulse Rate 90 91 H 91 H Pulse Rate [ From Monitor] Respiratory 34 H 33 H 24 Rate Blood Pressure 110/60 112/61 O2 Sat by Pulse 97 97 97 Oximetry 02/10/21 02/10/21 02/10/21 03:39 03:45 04:00 Temperature 100.4 F H Pulse Rate 92 H 91 H Pulse Rate [ 98 H From Monitor] Respiratory 33 H 27 H Rate Blood Pressure 117/63 111/61 O2 Sat by Pulse 97 97 Oximetry 02/10/21 02/10/21 02/10/21 04:01 04:15 04:30 Temperature Pulse Rate 91 H 91 H 90 Pulse Rate [ From Monitor] Respiratory 33 H 33 H Rate Blood Pressure 115/61 115/61 106/58 O2 Sat by Pulse 98 98 98 Oximetry 02/10/21 02/10/21 02/10/21 04:45 05:00 05:15 Temperature Pulse Rate 89 87 85 Pulse Rate [ From Monitor] Respiratory 34 H 34 H 34 H Rate Blood Pressure 100/53 93/49 90/48 O2 Sat by Pulse 98 97 97 Oximetry 02/10/21 02/10/21 02/10/21 05:30 05:45 06:00 Temperature Pulse Rate 85 86 87 Pulse Rate [ From Monitor] Respiratory 34 H 34 H 34 H Rate Blood Pressure 93/47 94/49 97/52 O2 Sat by Pulse 97 97 97 Oximetry 02/10/21 02/10/21 02/10/21 06:15 06:30 06:45 Temperature Pulse Rate 91 H 101 H 99 H Pulse Rate [ From Monitor] Respiratory 34 H 33 H 34 H Rate Blood Pressure 112/64 139/64 124/61 O2 Sat by Pulse 97 97 97 Oximetry 02/10/21 02/10/21 07:00 07:15 Temperature Pulse Rate 98 H 98 H Pulse Rate [ From Monitor] Respiratory 35 H 34 H Rate Blood Pressure 115/57 117/59 O2 Sat by Pulse 97 98 Oximetry - Lab 02/09/21 05:10 02/09/21 05:10 Most recent lab results ABG pH 7.339 (7.320-7.450) 02/10/21 04:00 ABG pCO2 82.8 mm Hg 02/06/21 17:00 ABG pO2 109.8 mm Hg (80.0-90.0) H 02/06/21 17:00 ABG HCO3 28.7 mmol/L (20.0-26.0) H 02/06/21 17:00 ABG O2 Saturation 91.7 (0-100) 02/10/21 04:00 Calcium 6.2 mg/dL (8.4-10.2) L 02/09/21 05:10 Phosphorus 3.60 mg/dL (2.5-4.5) D 02/08/21 06:00 Magnesium 2.20 mg/dL (1.7-2.3) 02/04/21 04:45 Urine Creatinine 53.0 mg/dL (0.1-20.0) H 01/30/21 12:00 Urine Sodium 28 mmol/L 01/22/21 22:39 Medications & Allergies - Medications Allergies/Adverse Reactions: Allergies No Known Allergies Allergy (Unverified 03/12/20 13:41) Home Medications: Home Medications Medication Instructions Recorded Confirmed Last Taken Type Clindamycin [Clindamycin CAP] 300 mg PO Q8H #21 cap 03/12/20 Unknown Rx Insulin NPH/Regular [Novolin 70/30] 18 unit SUB-Q TIDAC #1 vial 03/12/20 Unknown Rx Syringe-Needle,Insulin,0.5 ml 1 box MC TID #1 box 03/12/20 Unknown Rx [Insulin Syringe/Needle 0.5 ML] Active Medications: Generic Name Dose Route Start Last Admin Trade Name Freq PRN Reason Stop Dose Admin Acetaminophen 650 mg 01/23/21 02:25 Acetaminophen 650 Mg Rect Supp [place] Q4H PRN Pain, Mild (1-3) Acetaminophen 650 mg 01/24/21 12:58 02/10/21 06:14 Acetaminophen 325 Mg/10.15 Ml Oral Liqd Unit Dose FEEDTUBE 650 mg Q6H PRN Administration Pain, Mild (1-3) Lipase/Protease/Amylase 1 each 01/26/21 14:25 Lipase 10,500/Protease 25,000/Amylase 43,750 (Units) Dr Claudio FEEDTUBE PRN PRN For Clogged Feeding Tube Dextrose 50 ml 01/27/21 07:24 Dextrose 50% In Water (25gm) 50 Ml Syringe IV Q30MIN PRN Hypoglycemia Protocol Enoxaparin Sodium 120 mg 01/26/21 11:00 02/09/21 09:39 Enoxaparin 120 Mg/0.8 Ml Inj SUB-Q 120 mg Q24HR CECE Administration Famotidine 20 mg 01/24/21 10:00 02/09/21 09:39 Famotidine 20 Mg/2 Ml Inj IV 20 mg DAILY CECE Administration Fentanyl 50 mcg 01/22/21 22:39 Fentanyl 100 Mcg/2 Ml Inj IV Q10MIN PRN ANALGESIA Hydrophilic Ointment 1 applic 01/22/21 22:39 Lip Therapy Vaseline TP Q2HR PRN Dry Lips Fentanyl Citrate 2,000 mcg in 100 mls @ 6.124 mls/hr 01/22/21 23:00 02/10/21 04:08 Fentanyl Drip Premix IV 2 mcg/kg/hr TITR CECE 12.247 mls/hr Administration Protocol 1 MCG/KG/HR Propofol 1,000 mg in 100 mls @ 3.674 mls/hr 01/22/21 23:45 02/06/21 18:37 Diprivan 10 Mg/Ml IV 0 mcg/kg/min TITR CECE 0 mls/hr Titration Protocol 5 MCG/KG/MIN Norepinephrine 4 mg in 250 mls @ 7.5 mls/hr 01/28/21 14:00 02/08/21 06:08 Levophed Drip 4 Mg/Ns 250 Ml IV 0 mcg/min TITR CECE 0 mls/hr Titration Protocol 2 MCG/MIN Dexmedetomidine HCl 1,000 mcg/ 260 mls @ 6.368 mls/hr 01/30/21 20:00 02/10/21 05:56 Sodium Chloride IV 1.4 mcg/kg/hr TITRATE CECE 44.579 mls/hr Administration Protocol 0.2 MCG/KG/HR Sodium Bicarbonate 150 meq/ 1,150 mls @ 100 mls/hr 02/06/21 11:30 02/10/21 02:51 Dextrose IV 100 mls/hr DIRECT CECE Administration Sodium Chloride 100 mls @ 999 mls/hr 02/06/21 13:30 Nacl 0.9% IV SAGRARIO PRN Hypotension Lorazepam 100 mg/ Sodium 100 mls @ 1 mls/hr 02/06/21 19:00 02/10/21 01:00 Chloride/ Miscellaneous IV 1 mg/hr Information TITR CECE 1 mls/hr Titration Protocol 1 MG/HR Vancomycin HCl 1 gm in 250 mls @ 167.007 mls/hr 02/10/21 10:00 Vancomycin/Ns 1 Gm/250 Ml IV 02/10/21 11:29 ONCE ONE Multi-Ingred Cream/Lotion/Oil/Oint 1 applic 01/22/21 22:39 02/01/21 09:33 Mineral Oil/Petrolatum, White Ophth Oint 3.5 Gm OU 1 applic Q4HR PRN Administration Dry Eye(s) Ondansetron HCl 4 mg 01/23/21 02:17 Ondansetron 4 Mg/2 Ml Inj IV Q8H PRN Nausea And Vomiting Simple Syrup 15 ml 01/26/21 14:25 Simple Syrup 15 Ml FEEDTUBE PRN PRN Hypoglycemia Simple Syrup 30 ml 01/26/21 14:25 Simple Syrup 15 Ml FEEDTUBE PRN PRN Hypoglycemia Sodium Bicarbonate 325 mg 01/26/21 14:25 Sodium Bicarbonate 325 Mg Tab FEEDTUBE PRN PRN For Clogged Feeding Tube
--- NOTE | 2021-02-10 09:05 | Progress Note ---
Subjective Date of service: 02/10/21 Principal diagnosis: DEISI Objective - Constitutional Vitals: Vital Signs - 12hr 02/09/21 02/09/21 02/09/21 21:15 21:30 21:45 Temperature Pulse Rate 95 H 94 H 94 H Pulse Rate [ From Monitor] Respiratory 34 H 34 H 34 H Rate Blood Pressure 117/60 115/56 107/59 O2 Sat by Pulse 94 94 94 Oximetry 02/09/21 02/09/21 02/09/21 22:00 22:15 22:30 Temperature Pulse Rate 92 H 92 H 92 H Pulse Rate [ From Monitor] Respiratory 34 H 34 H 34 H Rate Blood Pressure 108/53 100/52 96/51 O2 Sat by Pulse 95 95 96 Oximetry 02/09/21 02/09/21 02/09/21 22:45 23:00 23:15 Temperature Pulse Rate 91 H 90 90 Pulse Rate [ From Monitor] Respiratory 34 H 34 H 34 H Rate Blood Pressure 97/50 94/49 95/49 O2 Sat by Pulse 95 95 96 Oximetry 02/09/21 02/09/21 02/09/21 23:30 23:45 23:58 Temperature 99.6 F Pulse Rate 90 89 Pulse Rate [ From Monitor] Respiratory 34 H 34 H Rate Blood Pressure 84/43 82/41 O2 Sat by Pulse 96 97 Oximetry 02/10/21 02/10/21 02/10/21 00:00 00:15 00:29 Temperature Pulse Rate 88 89 88 Pulse Rate [ 98 H From Monitor] Respiratory 34 H 34 H Rate Blood Pressure 78/39 84/45 89/49 O2 Sat by Pulse 97 97 96 Oximetry 02/10/21 02/10/21 02/10/21 00:30 00:41 00:45 Temperature 100.3 F H Pulse Rate 89 95 H Pulse Rate [ From Monitor] Respiratory 34 H 34 H Rate Blood Pressure 89/49 110/62 O2 Sat by Pulse 98 95 Oximetry 02/10/21 02/10/21 02/10/21 01:00 01:15 01:30 Temperature Pulse Rate 99 H 98 H 96 H Pulse Rate [ From Monitor] Respiratory 34 H 35 H 34 H Rate Blood Pressure 124/61 121/63 109/55 O2 Sat by Pulse 94 93 95 Oximetry 02/10/21 02/10/21 02/10/21 01:45 02:00 02:15 Temperature Pulse Rate 95 H 93 H 91 H Pulse Rate [ From Monitor] Respiratory 34 H 35 H 34 H Rate Blood Pressure 101/54 100/54 92/52 O2 Sat by Pulse 96 96 97 Oximetry 02/10/21 02/10/21 02/10/21 02:30 02:45 03:10 Temperature Pulse Rate 88 88 90 Pulse Rate [ From Monitor] Respiratory 34 H 34 H 34 H Rate Blood Pressure 87/48 93/54 O2 Sat by Pulse 97 97 97 Oximetry 02/10/21 02/10/21 02/10/21 03:15 03:30 03:39 Temperature 100.4 F H Pulse Rate 91 H 91 H Pulse Rate [ From Monitor] Respiratory 33 H 24 Rate Blood Pressure 110/60 112/61 O2 Sat by Pulse 97 97 Oximetry 02/10/21 02/10/21 02/10/21 03:45 04:00 04:01 Temperature Pulse Rate 92 H 91 H 91 H Pulse Rate [ 98 H From Monitor] Respiratory 33 H 27 H Rate Blood Pressure 117/63 111/61 115/61 O2 Sat by Pulse 97 97 98 Oximetry 02/10/21 02/10/21 02/10/21 04:15 04:30 04:45 Temperature Pulse Rate 91 H 90 89 Pulse Rate [ From Monitor] Respiratory 33 H 33 H 34 H Rate Blood Pressure 115/61 106/58 100/53 O2 Sat by Pulse 98 98 98 Oximetry 02/10/21 02/10/21 02/10/21 05:00 05:15 05:30 Temperature Pulse Rate 87 85 85 Pulse Rate [ From Monitor] Respiratory 34 H 34 H 34 H Rate Blood Pressure 93/49 90/48 93/47 O2 Sat by Pulse 97 97 97 Oximetry 02/10/21 02/10/21 02/10/21 05:45 06:00 06:15 Temperature Pulse Rate 86 87 91 H Pulse Rate [ From Monitor] Respiratory 34 H 34 H 34 H Rate Blood Pressure 94/49 97/52 112/64 O2 Sat by Pulse 97 97 97 Oximetry 02/10/21 02/10/21 02/10/21 06:30 06:45 07:00 Temperature Pulse Rate 101 H 99 H 98 H Pulse Rate [ From Monitor] Respiratory 33 H 34 H 35 H Rate Blood Pressure 139/64 124/61 115/57 O2 Sat by Pulse 97 97 97 Oximetry 0402/10/21 02/10/21 07:15 07:30 07:37 Temperature Pulse Rate 98 H 97 H 96 H Pulse Rate [ 96 H From Monitor] Respiratory 34 H 34 H Rate Blood Pressure 117/59 113/58 O2 Sat by Pulse 98 98 Oximetry 02/10/21 02/10/21 02/10/21 07:45 08:00 08:28 Temperature 99.2 F Pulse Rate 94 H 94 H 92 H Pulse Rate [ From Monitor] Respiratory 34 H 34 H Rate Blood Pressure 110/56 111/54 105/55 O2 Sat by Pulse 97 97 97 Oximetry - Labs CBC & Chem 7: 02/09/21 05:10 02/09/21 05:10 Labs: Abnormal lab results 02/09/21 02/09/21 02/09/21 Range/Units 05:10 06:04 12:02 Seg Neuts % (Manual) 82.0 H (40.0-70.0) % Lymphocytes % (Manual) 9.0 L (13.4-35.0) % Nucleated RBC % 1.0 H (0.0-0.9) % Seg Neutrophils # Man 8.9 H (1.8-7.7) K/mm3 Lymphocytes # (Manual) 1.0 L (1.2-5.4) K/mm3 POC ABG pCO2 (32.0-48.0) mmHg POC ABG pO2 (83-108) mmHg ABG Hemoglobin (12.0-17.5) ABG Sodium (136.0-145.0) mmol/L ABG Potassium (3.40-4.50) mmol/L ABG Chloride (98-107) mmol/L ABG Glucose (65-95) mg/dL POC Glucose 149 H 147 H (70-105) mg/dL Triglycerides (2-149) mg/dL Arterial Blood Glucose (65-95) mg/dL Arterial Blood Ionized Calcium (4.6-5.3) mg/dL 02/09/21 02/09/21 02/09/21 Range/Units 13:32 18:06 23:42 Seg Neuts % (Manual) (40.0-70.0) % Lymphocytes % (Manual) (13.4-35.0) % Nucleated RBC % (0.0-0.9) % Seg Neutrophils # Man (1.8-7.7) K/mm3 Lymphocytes # (Manual) (1.2-5.4) K/mm3 POC ABG pCO2 (32.0-48.0) mmHg POC ABG pO2 (83-108) mmHg ABG Hemoglobin (12.0-17.5) ABG Sodium (136.0-145.0) mmol/L ABG Potassium (3.40-4.50) mmol/L ABG Chloride (98-107) mmol/L ABG Glucose (65-95) mg/dL POC Glucose 152 H 147 H (70-105) mg/dL Triglycerides 250 H (2-149) mg/dL Arterial Blood Glucose (65-95) mg/dL Arterial Blood Ionized Calcium (4.6-5.3) mg/dL 02/10/21 Range/Units 04:00 Seg Neuts % (Manual) (40.0-70.0) % Lymphocytes % (Manual) (13.4-35.0) % Nucleated RBC % (0.0-0.9) % Seg Neutrophils # Man (1.8-7.7) K/mm3 Lymphocytes # (Manual) (1.2-5.4) K/mm3 POC ABG pCO2 65.8 H (32.0-48.0) mmHg POC ABG pO2 68.0 L (83-108) mmHg ABG Hemoglobin 8.3 L (12.0-17.5) ABG Sodium 132.4 L (136.0-145.0) mmol/L ABG Potassium 2.9 L (3.40-4.50) mmol/L ABG Chloride 92.0 L (98-107) mmol/L ABG Glucose 174 H (65-95) mg/dL POC Glucose (70-105) mg/dL Triglycerides (2-149) mg/dL Arterial Blood Glucose 174 H (65-95) mg/dL Arterial Blood Ionized Calcium 3.4 L (4.6-5.3) mg/dL HEART Score - HEART Score Risk factors: 1-2 risk factors Troponin: < normal limit - Critical Actions Critical Actions: 0-3 pts:0.9-1.7%risk of adverse cardiac event.Candidate for discharge
[2021-02-10] MEDS: FAMOTIDINE 20 MG TAB PO SCH (09:10)
[2021-02-10] MEDS: ENOXAPARIN 120 MG/0.8 ML INJ SUB-Q SCH (09:11)
[2021-02-10] MEDS ORDERED: VANCOMYCIN/NS 1 GM/250 ML 1 GM/250 ML BAG IV ONE (10:00)
--- NOTE | 2021-02-10 10:48 | Progress Note ---
Assessment and Plan 60 y/o male with ARDS secondary most likely to COVID 19 pneumonia. 02/10/21: Triglycerides improved but current sedation is adequate so will hold on stopping ativan to add propofol back. Awaiting Labs from this morning. Plan to replace HD catheter tomorrow morning as early as possible. Fever curve is trending down. Continue bicarb drip for now. Prognosis remains guarded. WIll speak with family tomorrow to update. 02/09/21: Repeat Triglycerides today. Follow up repeat blood cultures. Given continued fever will hold on replacing vascath today. If fever free the next 24 hours, can place in the morning or Tuesday morning. Will likely need blood with next HD session. Continue bicarb drip to help manage respiratory as well as metabolic acidosis. Wean FiO2 for sats >88% and PaO2 >55. Overall prognosis remains guarded to poor. 02/08/21: Picc out today. Will repeat culture if patient spikes again today. Plan to replace HD catheter either late tomorrow or Tuesday. Continue current level of sedation. Abx therapy per ID. Wean FiO2 as tolerated, doubt will be able to do much until we can resume HD. Guarded prognosis. Replaced potassium. Will need to check in the morning. Will repeat K later this afternoon. 02/07/21: Biggest issue now is that patient's numbers are better with HD but now with bacteremia, concern for line infection. ID is correct in requesting line holiday. Has a picc and an Right IJ Dialysis catheter with 3 ports. Currently getting HD today. Have not seen renal yet. Will pull right IJ line post HD and plan to replace it Tuesday evening or Tuesday. Continue bicarb drip for now and will keep picc as patient has been requiring levophed. If able to be weaned off levophed, will remove picc either tomorrow or Tuesday. Continue Ativan, Precedex and Fent drips, repeat Triglycerides on Tuesday. Very very guarded prognosis. Will remove Black today as well. 02/06/21: Will add bicarb drip at 125/hr. Giving 2 amps of NaHCO3 push now. Will repeat ABG this afternoon, may just ask for Art Line if possible. HD today per renal and I spoke with them about the bicarb drip. Long discussion with Sister, Significant and other and another family member on the phone on yesterday. I tried my best to explain the severity of the clinical state but not sure if they fully understood. The patient is very very ill and history suggests that his outcome will be poor (intubated with covid and renal failure on dialysis). This was expressed with the family. Will continue all supportive measures. Checking triglyceride levels today. 02/05/21: WIll increase PEEP to 16. Can increase pressors if needed for BP control during HD. Follow up cultures. If negative will scan legs and arms again for VTE. Repeat ABG at 1400 today. Will speak with sister and Girlfriend on phone today. 02/04/21: HD again today per renal notes. Likely will need daily HD. New fevers. Will draw blood and urine cultures if able to still make urine.. Repeat CXR. May need to check dopplers if all of those studies are negative. Wean FIO2 as tolerated. Unable to tolerate proning. Guarded to poor prognosis. 02/03/21: HD today per renal. Wean FiO2 as tolerated. No further proning as patient cannot tolerate it, however with volume removal, may consider in the f uture. Use pressors to keep MAPs 65 and greater for HD purporses so volume can be removed. (IJ was wide open (filled with blood)) with patient sitting up at 45 degrees. Guarded prognosis. 02/02/21: After renal speaks with family, will place vascath today. Agree with bicarb drip but will order some pushes now to help with pH. Overall prognosis is very very guarded to poor now that patient is COVID positive and requiring renal replacement therapy. Mortality is very high in these patients. Continue steroid therapy. Unable to tolerate proning. 01/30/21: Will plan for proning later today. Goal will be at least 12hrs but long is okay. Speaking with pharmacy to see if we can get paralytic for a longer period of time. Regardless will prone. Continue heavy sedation. BP stable. Continue steroids. Very very guarded prognosis. 01/29/21: will increase tidal volume and/or increase respiratory rate. Repeat ABG this afternoon. Continue paralytic and adequate sedation. Continue steroid and remdesivir, follow up any renal recs. Prognosis remains guarded. Wean Fio2 for sats >88% 01/28/21: Increased PEEP to 16. Will paralyze patient today and increase sedation. Ordering picc line for possible vasopressor therapy needs. Continue BID steroids. Renal function is slightly better today with fluids but could be making oxygenation worse. Not able to diurese. Still making urine. Continue Remdesivir. Watch for fever curve. If not improvement in the next 24 hours with paralyzing, will prone tomorrow morning. 01/27/21: Continue PEEP at 14. No weaning until FiO2 is at or below 40-45%. Continue anticoagulation. Getting Remdesivir now. Continue BID steroids. Renal has increased the fluids. Monitor urine output and renal function. Overall prognosis is very very guarded, especially if renal status worsens. 01/26/21: Increase PEEP to 14. Will add Precedex therapy. If patient does not respond to increases in PEEP may need to prone. Will place patient on lovenox and will feed patient. Remdesivir coming. Continue BID steroids. Prognosis is guarded. 01/25/21: Hold on proning today. Continue BID steroids. ABG this AM was adequate. Pending abg tomorrow, may increase PEEP if not able to wean FiO2 any further. Per charting Remdesivir to arrive tomorrow. Guarded prognosis. 01/24/21: Continue BID steroids. No abg done this am but able to wean FiO2. W ill obtain ABG in the am. Hold on proning for right now. Renal following, would like to diurese but they are given fluids for deisi. Agree with ID assessment and note. Guarded prognosis. 1. Increase steroids to BID given size 2. Check with ID to see if he is a candidate for remdesivir or any other experiemental therapy 3. Hold on proning for right now 4. Renal consulted and giving IVF's currently Guarded prognosis. CCT 31 minutes. Subjective Date of service: 02/10/21 Principal diagnosis: DEISI Interval history: Oxygenation slightly better. Still no labs yet from this am. BP was marginal early am but stable now. Was given a one time dose of midodrine. Remainder is negative. Objective Vital Signs - 12hr 02/09/21 02/09/21 02/09/21 22:45 23:00 23:15 Temperature Pulse Rate 91 H 90 90 Pulse Rate [ From Monitor] Respiratory 34 H 34 H 34 H Rate Blood Pressure 97/50 94/49 95/49 O2 Sat by Pulse 95 95 96 Oximetry 02/09/21 02/09/21 02/09/21 23:30 23:45 23:58 Temperature 99.6 F Pulse Rate 90 89 Pulse Rate [ From Monitor] Respiratory 34 H 34 H Rate Blood Pressure 84/43 82/41 O2 Sat by Pulse 96 97 Oximetry 02/10/21 02/10/21 02/10/21 00:00 00:15 00:29 Temperature Pulse Rate 88 89 88 Pulse Rate [ 98 H From Monitor] Respiratory 34 H 34 H Rate Blood Pressure 78/39 84/45 89/49 O2 Sat by Pulse 97 97 96 Oximetry 02/10/21 02/10/21 02/10/21 00:30 00:41 00:45 Temperature 100.3 F H Pulse Rate 89 95 H Pulse Rate [ From Monitor] Respiratory 34 H 34 H Rate Blood Pressure 89/49 110/62 O2 Sat by Pulse 98 95 Oximetry 02/10/21 02/10/21 02/10/21 01:00 01:15 01:30 Temperature Pulse Rate 99 H 98 H 96 H Pulse Rate [ From Monitor] Respiratory 34 H 35 H 34 H Rate Blood Pressure 124/61 121/63 109/55 O2 Sat by Pulse 94 93 95 Oximetry 02/10/21 02/10/21 02/10/21 01:45 02:00 02:15 Temperature Pulse Rate 95 H 93 H 91 H Pulse Rate [ From Monitor] Respiratory 34 H 35 H 34 H Rate Blood Pressure 101/54 100/54 92/52 O2 Sat by Pulse 96 96 97 Oximetry 02/10/21 02/10/21 02/10/21 02:30 02:45 03:10 Temperature Pulse Rate 88 88 90 Pulse Rate [ From Monitor] Respiratory 34 H 34 H 34 H Rate Blood Pressure 87/48 93/54 O2 Sat by Pulse 97 97 97 Oximetry 02/10/21 02/10/21 02/10/21 03:15 03:30 03:39 Temperature 100.4 F H Pulse Rate 91 H 91 H Pulse Rate [ From Monitor] Respiratory 33 H 24 Rate Blood Pressure 110/60 112/61 O2 Sat by Pulse 97 97 Oximetry 02/10/21 02/10/21 02/10/21 03:45 04:00 04:01 Temperature Pulse Rate 92 H 91 H 91 H Pulse Rate [ 98 H From Monitor] Respiratory 33 H 27 H Rate Blood Pressure 117/63 111/61 115/61 O2 Sat by Pulse 97 97 98 Oximetry 02/10/21 02/10/21 02/10/21 04:15 04:30 04:45 Temperature Pulse Rate 91 H 90 89 Pulse Rate [ From Monitor] Respiratory 33 H 33 H 34 H Rate Blood Pressure 115/61 106/58 100/53 O2 Sat by Pulse 98 98 98 Oximetry 02/10/21 02/10/21 02/10/21 05:00 05:15 05:30 Temperature Pulse Rate 87 85 85 Pulse Rate [ From Monitor] Respiratory 34 H 34 H 34 H Rate Blood Pressure 93/49 90/48 93/47 O2 Sat by Pulse 97 97 97 Oximetry 02/10/21 02/10/21 02/10/21 05:45 06:00 06:15 Temperature Pulse Rate 86 87 91 H Pulse Rate [ From Monitor] Respiratory 34 H 34 H 34 H Rate Blood Pressure 94/49 97/52 112/64 O2 Sat by Pulse 97 97 97 Oximetry 02/10/21 02/10/21 02/10/21 06:30 06:45 07:00 Temperature Pulse Rate 101 H 99 H 98 H Pulse Rate [ From Monitor] Respiratory 33 H 34 H 35 H Rate Blood Pressure 139/64 124/61 115/57 O2 Sat by Pulse 97 97 97 Oximetry 02/10/21 02/10/21 02/10/21 07:15 07:30 07:37 Temperature Pulse Rate 98 H 97 H 96 H Pulse Rate [ 96 H From Monitor] Respiratory 34 H 34 H Rate Blood Pressure 117/59 113/58 O2 Sat by Pulse 98 98 Oximetry 02/10/21 02/10/21 02/10/21 07:45 08:00 08:15 Temperature 99.2 F Pulse Rate 94 H 94 H 93 H Pulse Rate [ From Monitor] Respiratory 34 H 34 H 35 H Rate Blood Pressure 110/56 111/54 111/56 O2 Sat by Pulse 97 97 97 Oximetry 02/10/21 02/10/21 02/10/21 08:28 08:30 08:45 Temperature Pulse Rate 92 H 91 H 93 H Pulse Rate [ From Monitor] Respiratory 34 H 34 H Rate Blood Pressure 105/55 105/55 120/58 O2 Sat by Pulse 97 97 96 Oximetry 02/10/21 02/10/21 02/10/21 09:00 09:15 09:30 Temperature Pulse Rate 93 H 94 H Pulse Rate [ From Monitor] Respiratory 34 H 35 H 23 Rate Blood Pressure 117/58 131/65 120/69 O2 Sat by Pulse 95 95 100 Oximetry 02/10/21 02/10/21 09:45 10:00 Temperature Pulse Rate 100 H 97 H Pulse Rate [ From Monitor] Respiratory 26 H 35 H Rate Blood Pressure 139/70 132/68 O2 Sat by Pulse 92 94 Oximetry Constitutional: comatose Eyes: non-icteric ENT: other (orally intubated and sedated) Neck: supple Effort: mildly labored Ascultation: Bilateral: clear Percussion: Bilateral: not dull Cardiovascular: regular rate and rhythm Gastrointestinal: normoactive bowel sounds CBC and BMP: 02/09/21 05:10 02/09/21 05:10 ABG, PT/INR, D-dimer: ABG ABG pH 7.339 (7.320-7.450) 02/10/21 04:00 POC ABG pCO2 65.8 mmHg (32.0-48.0) H 02/10/21 04:00 ABG pCO2 82.8 mm Hg 02/06/21 17:00 POC ABG pO2 68.0 mmHg (83-108) L 02/10/21 04:00 ABG pO2 109.8 mm Hg (80.0-90.0) H 02/06/21 17:00 POC ABG HCO3 34.6 02/10/21 04:00 ABG O2 Saturation 91.7 (0-100) 02/10/21 04:00 PT/INR, D-dimer D-Dimer > 36628 ng/mlDDU (0-234) H 01/30/21 04:00 Abnormal lab findings: Abnormal Labs 01/22/21 01/22/21 01/22/21 22:39 22:57 22:57 WBC RBC Hgb Hct MCV MCH MCHC RDW Plt Count Lymph % (Auto) 6.6 L Lymph # (Auto) 0.5 L Seg Neutrophils % 87.6 H Seg Neuts % (Manual) Lymphocytes % (Manual) Nucleated RBC % Seg Neutrophils # Seg Neutrophils # Man Lymphocytes # (Manual) Eosinophils # (Manual) D-Dimer ABG pH POC ABG pCO2 POC ABG pO2 ABG pO2 ABG HCO3 ABG O2 Saturation ABG Base Excess ABG Hemoglobin ABG Oxyhemoglobin ABG Sodium ABG Potassium ABG Chloride ABG Glucose Oxyhemoglobin Carboxyhemoglobin Sodium 129 L Potassium 3.4 L Chloride 90.4 L Carbon Dioxide BUN 34 H Creatinine 1.5 H Glucose 146 H POC Glucose Hemoglobin A1c Lactic Acid Calcium 7.8 L Phosphorus Magnesium Ferritin Total Bilirubin AST 75 H ALT 57 H Lactate Dehydrogenase C-Reactive Protein Albumin 2.9 L Triglycerides Arterial Blood Glucose Arterial Blood Ionized Calcium Urine Creatinine 301.2 H Coronavirus (PCR) 01/22/21 01/22/21 01/22/21 22:57 22:57 22:57 WBC RBC Hgb Hct MCV MCH MCHC RDW Plt Count Lymph % (Auto) Lymph # (Auto) Seg Neutrophils % Seg Neuts % (Manual) Lymphocytes % (Manual) Nucleated RBC % Seg Neutrophils # Seg Neutrophils # Man Lymphocytes # (Manual) Eosinophils # (Manual) D-Dimer 1173.89 H ABG pH POC ABG pCO2 POC ABG pO2 ABG pO2 ABG HCO3 ABG O2 Saturation ABG Base Excess ABG Hemoglobin ABG Oxyhemoglobin ABG Sodium ABG Potassium ABG Chloride ABG Glucose Oxyhemoglobin Carboxyhemoglobin Sodium Potassium Chloride Carbon Dioxide BUN Creatinine Glucose 149 H POC Glucose Hemoglobin A1c Lactic Acid 2.10 H* Calcium Phosphorus Magnesium Ferritin Total Bilirubin AST ALT Lactate Dehydrogenase 685 H C-Reactive Protein 30.40 H Albumin Triglycerides Arterial Blood Glucose Arterial Blood Ionized Calcium Urine Creatinine Coronavirus (PCR) 01/22/21 01/23/21 01/23/21 22:57 08:41 10:01 WBC RBC Hgb Hct MCV MCH MCHC RDW Plt Count Lymph % (Auto) Lymph # (Auto) Seg Neutrophils % Seg Neuts % (Manual) Lymphocytes % (Manual) Nucleated RBC % Seg Neutrophils # Seg Neutrophils # Man Lymphocytes # (Manual) Eosinophils # (Manual) D-Dimer ABG pH POC ABG pCO2 POC ABG pO2 ABG pO2 ABG HCO3 ABG O2 Saturation ABG Base Excess ABG Hemoglobin ABG Oxyhemoglobin ABG Sodium ABG Potassium ABG Chloride ABG Glucose Oxyhemoglobin Carboxyhemoglobin Sodium 131 L Potassium Chloride 88.7 L Carbon Dioxide 18 L BUN 36 H Creatinine 1.6 H Glucose 147 H POC Glucose Hemoglobin A1c Lactic Acid Calcium 7.5 L Phosphorus Magnesium Ferritin 1207.0 H Total Bilirubin AST ALT Lactate Dehydrogenase C-Reactive Protein Albumin Triglycerides Arterial Blood Glucose Arterial Blood Ionized Calcium Urine Creatinine Coronavirus (PCR) Positive A 01/23/21 01/23/21 01/24/21 20:49 Unknown 00:10 WBC RBC Hgb Hct MCV MCH MCHC RDW Plt Count Lymph % (Auto) Lymph # (Auto) Seg Neutrophils % Seg Neuts % (Manual) Lymphocytes % (Manual) Nucleated RBC % Seg Neutrophils # Seg Neutrophils # Man Lymphocytes # (Manual) Eosinophils # (Manual) D-Dimer ABG pH POC ABG pCO2 POC ABG pO2 ABG pO2 165.4 H ABG HCO3 ABG O2 Saturation ABG Base Excess -2.5 L ABG Hemoglobin ABG Oxyhemoglobin ABG Sodium ABG Potassium ABG Chloride ABG Glucose Oxyhemoglobin Carboxyhemoglobin Sodium 130 L Potassium Chloride 91.0 L Carbon Dioxide 20 L BUN 52 H Creatinine 3.8 H D Glucose 150 H POC Glucose 125 H Hemoglobin A1c Lactic Acid Calcium 8.0 L Phosphorus Magnesium Ferritin Total Bilirubin AST 42 H ALT Lactate Dehydrogenase C-Reactive Protein Albumin 2.4 L Triglycerides Arterial Blood Glucose Arterial Blood Ionized Calcium Urine Creatinine Coronavirus (PCR) 01/24/21 01/24/21 01/24/21 05:05 05:05 05:05 WBC 14.0 H RBC Hgb Hct MCV 95 H MCH 33 H MCHC RDW Plt Count Lymph % (Auto) Lymph # (Auto) Seg Neutrophils % Seg Neuts % (Manual) 91.0 H Lymphocytes % (Manual) 4.0 L Nucleated RBC % Seg Neutrophils # Seg Neutrophils # Man 12.7 H Lymphocytes # (Manual) 0.6 L Eosinophils # (Manual) D-Dimer 6159.48 H ABG pH POC ABG pCO2 POC ABG pO2 ABG pO2 ABG HCO3 ABG O2 Saturation ABG Base Excess ABG Hemoglobin ABG Oxyhemoglobin ABG Sodium ABG Potassium ABG Chloride ABG Glucose Oxyhemoglobin Carboxyhemoglobin Sodium Potassium Chloride Carbon Dioxide BUN Creatinine Glucose POC Glucose Hemoglobin A1c Lactic Acid Calcium Phosphorus Magnesium Ferritin 1178.0 H Total Bilirubin AST ALT Lactate Dehydrogenase C-Reactive Protein Albumin Triglycerides Arterial Blood Glucose Arterial Blood Ionized Calcium Urine Creatinine Coronavirus (PCR) 01/24/21 01/24/21 01/24/21 05:05 05:05 05:05 WBC RBC Hgb Hct MCV MCH MCHC RDW Plt Count Lymph % (Auto) Lymph # (Auto) Seg Neutrophils % Seg Neuts % (Manual) Lymphocytes % (Manual) Nucleated RBC % Seg Neutrophils # Seg Neutrophils # Man Lymphocytes # (Manual) Eosinophils # (Manual) D-Dimer ABG pH POC ABG pCO2 POC ABG pO2 ABG pO2 ABG HCO3 ABG O2 Saturation ABG Base Excess ABG Hemoglobin ABG Oxyhemoglobin ABG Sodium ABG Potassium ABG Chloride ABG Glucose Oxyhemoglobin Carboxyhemoglobin Sodium 132 L Potassium Chloride 93.1 L Carbon Dioxide 21 L BUN 57 H Creatinine 3.7 H Glucose 133 H POC Glucose Hemoglobin A1c Lactic Acid 2.20 H* Calcium 7.7 L Phosphorus Magnesium Ferritin Total Bilirubin AST ALT Lactate Dehydrogenase 658 H C-Reactive Protein 33.20 H Albumin 2.4 L Triglycerides Arterial Blood Glucose Arterial Blood Ionized Calcium Urine Creatinine Coronavirus (PCR) 01/24/21 01/24/21 01/24/21 05:34 06:00 17:35 WBC RBC Hgb Hct MCV MCH MCHC RDW Plt Count Lymph % (Auto) Lymph # (Auto) Seg Neutrophils % Seg Neuts % (Manual) Lymphocytes % (Manual) Nucleated RBC % Seg Neutrophils # Seg Neutrophils # Man Lymphocytes # (Manual) Eosinophils # (Manual) D-Dimer ABG pH POC ABG pCO2 POC ABG pO2 ABG pO2 ABG HCO3 ABG O2 Saturation ABG Base Excess ABG Hemoglobin ABG Oxyhemoglobin ABG Sodium ABG Potassium ABG Chloride ABG Glucose Oxyhemoglobin Carboxyhemoglobin Sodium Potassium Chloride Carbon Dioxide BUN Creatinine Glucose POC Glucose 136 H 137 H Hemoglobin A1c Lactic Acid Calcium Phosphorus Magnesium 2.80 H Ferritin Total Bilirubin AST ALT Lactate Dehydrogenase C-Reactive Protein Albumin Triglycerides Arterial Blood Glucose Arterial Blood Ionized Calcium Urine Creatinine Coronavirus (PCR) 01/25/21 01/25/21 01/25/21 04:15 05:40 05:40 WBC RBC Hgb Hct MCV 95 H MCH 33 H MCHC 35 H RDW Plt Count Lymph % (Auto) Lymph # (Auto) Seg Neutrophils % Seg Neuts % (Manual) 95.0 H Lymphocytes % (Manual) 3.0 L Nucleated RBC % Seg Neutrophils # Seg Neutrophils # Man 7.8 H Lymphocytes # (Manual) 0.2 L Eosinophils # (Manual) D-Dimer ABG pH POC ABG pCO2 POC ABG pO2 63.2 L ABG pO2 ABG HCO3 ABG O2 Saturation ABG Base Excess ABG Hemoglobin ABG Oxyhemoglobin 89.6 L ABG Sodium ABG Potassium ABG Chloride ABG Glucose 165 H Oxyhemoglobin Carboxyhemoglobin 0.3 L Sodium Potassium Chloride Carbon Dioxide BUN 67 H Creatinine 3.4 H Glucose 153 H POC Glucose Hemoglobin A1c Lactic Acid Calcium 7.5 L Phosphorus Magnesium Ferritin Total Bilirubin 1.40 H AST 62 H ALT Lactate Dehydrogenase C-Reactive Protein Albumin 2.6 L Triglycerides Arterial Blood Glucose 165 H Arterial Blood Ionized Calcium 4.3 L Urine Creatinine Coronavirus (PCR) 01/25/21 01/25/21 01/25/21 05:59 12:00 17:17 WBC RBC Hgb Hct MCV MCH MCHC RDW Plt Count Lymph % (Auto) Lymph # (Auto) Seg Neutrophils % Seg Neuts % (Manual) Lymphocytes % (Manual) Nucleated RBC % Seg Neutrophils # Seg Neutrophils # Man Lymphocytes # (Manual) Eosinophils # (Manual) D-Dimer ABG pH POC ABG pCO2 POC ABG pO2 ABG pO2 ABG HCO3 ABG O2 Saturation ABG Base Excess ABG Hemoglobin ABG Oxyhemoglobin ABG Sodium ABG Potassium ABG Chloride ABG Glucose Oxyhemoglobin Carboxyhemoglobin Sodium Potassium Chloride Carbon Dioxide BUN Creatinine Glucose POC Glucose 140 H 143 H 149 H Hemoglobin A1c Lactic Acid Calcium Phosphorus Magnesium Ferritin Total Bilirubin AST ALT Lactate Dehydrogenase C-Reactive Protein Albumin Triglycerides Arterial Blood Glucose Arterial Blood Ionized Calcium Urine Creatinine Coronavirus (PCR) 01/25/21 01/26/21 01/26/21 23:41 03:43 05:46 WBC RBC Hgb Hct MCV MCH MCHC RDW Plt Count Lymph % (Auto) Lymph # (Auto) Seg Neutrophils % Seg Neuts % (Manual) Lymphocytes % (Manual) Nucleated RBC % Seg Neutrophils # Seg Neutrophils # Man Lymphocytes # (Manual) Eosinophils # (Manual) D-Dimer ABG pH POC ABG pCO2 POC ABG pO2 70.0 L ABG pO2 ABG HCO3 ABG O2 Saturation ABG Base Excess ABG Hemoglobin ABG Oxyhemoglobin 91.9 L ABG Sodium ABG Potassium ABG Chloride 109.0 H ABG Glucose 165 H Oxyhemoglobin Carboxyhemoglobin Sodium Potassium Chloride Carbon Dioxide BUN Creatinine Glucose POC Glucose 132 H 161 H Hemoglobin A1c Lactic Acid Calcium Phosphorus Magnesium Ferritin Total Bilirubin AST ALT Lactate Dehydrogenase C-Reactive Protein Albumin Triglycerides Arterial Blood Glucose 165 H Arterial Blood Ionized Calcium 4.5 L Urine Creatinine Coronavirus (PCR) 01/26/21 01/26/21 01/26/21 05:47 05:47 05:47 WBC RBC Hgb Hct 35.3 L MCV 96 H MCH 33 H MCHC RDW Plt Count Lymph % (Auto) Lymph # (Auto) Seg Neutrophils % Seg Neuts % (Manual) 96.0 H Lymphocytes % (Manual) 2.0 L Nucleated RBC % Seg Neutrophils # Seg Neutrophils # Man Lymphocytes # (Manual) 0.1 L Eosinophils # (Manual) D-Dimer > 48565 H ABG pH POC ABG pCO2 POC ABG pO2 ABG pO2 ABG HCO3 ABG O2 Saturation ABG Base Excess ABG Hemoglobin ABG Oxyhemoglobin ABG Sodium ABG Potassium ABG Chloride ABG Glucose Oxyhemoglobin Carboxyhemoglobin Sodium Potassium Chloride Carbon Dioxide BUN 57 H Creatinine 2.2 H Glucose 185 H POC Glucose Hemoglobin A1c Lactic Acid Calcium 8.1 L Phosphorus Magnesium Ferritin Total Bilirubin AST ALT Lactate Dehydrogenase C-Reactive Protein Albumin Triglycerides Arterial Blood Glucose Arterial Blood Ionized Calcium Urine Creatinine Coronavirus (PCR) 01/26/21 01/26/21 01/26/21 05:47 05:47 05:47 WBC RBC Hgb Hct MCV MCH MCHC RDW Plt Count Lymph % (Auto) Lymph # (Auto) Seg Neutrophils % Seg Neuts % (Manual) Lymphocytes % (Manual) Nucleated RBC % Seg Neutrophils # Seg Neutrophils # Man Lymphocytes # (Manual) Eosinophils # (Manual) D-Dimer ABG pH POC ABG pCO2 POC ABG pO2 ABG pO2 ABG HCO3 ABG O2 Saturation ABG Base Excess ABG Hemoglobin ABG Oxyhemoglobin ABG Sodium ABG Potassium ABG Chloride ABG Glucose Oxyhemoglobin Carboxyhemoglobin Sodium Potassium Chloride 107.1 H Carbon Dioxide BUN 56 H Creatinine 2.2 H Glucose 188 H POC Glucose Hemoglobin A1c Lactic Acid Calcium 8.0 L Phosphorus Magnesium Ferritin 1178.0 H Total Bilirubin 1.50 H AST ALT Lactate Dehydrogenase 588 H C-Reactive Protein 40.10 H Albumin 2.2 L Triglycerides Arterial Blood Glucose Arterial Blood Ionized Calcium Urine Creatinine Coronavirus (PCR) 01/26/21 01/26/21 01/26/21 11:34 18:17 23:20 WBC RBC Hgb Hct MCV MCH MCHC RDW Plt Count Lymph % (Auto) Lymph # (Auto) Seg Neutrophils % Seg Neuts % (Manual) Lymphocytes % (Manual) Nucleated RBC % Seg Neutrophils # Seg Neutrophils # Man Lymphocytes # (Manual) Eosinophils # (Manual) D-Dimer ABG pH POC ABG pCO2 POC ABG pO2 ABG pO2 ABG HCO3 ABG O2 Saturation ABG Base Excess ABG Hemoglobin ABG Oxyhemoglobin ABG Sodium ABG Potassium ABG Chloride ABG Glucose Oxyhemoglobin Carboxyhemoglobin Sodium Potassium Chloride Carbon Dioxide BUN Creatinine Glucose POC Glucose 129 H 205 H 155 H Hemoglobin A1c Lactic Acid Calcium Phosphorus Magnesium Ferritin Total Bilirubin AST ALT Lactate Dehydrogenase C-Reactive Protein Albumin Triglycerides Arterial Blood Glucose Arterial Blood Ionized Calcium Urine Creatinine Coronavirus (PCR) 01/27/21 01/27/21 01/27/21 02:45 05:29 05:29 WBC RBC 3.58 L Hgb 11.7 L Hct 34.9 L MCV 97 H MCH 33 H MCHC RDW Plt Count Lymph % (Auto) Lymph # (Auto) Seg Neutrophils % Seg Neuts % (Manual) 88.0 H Lymphocytes % (Manual) 7.0 L Nucleated RBC % Seg Neutrophils # Seg Neutrophils # Man Lymphocytes # (Manual) 0.5 L Eosinophils # (Manual) D-Dimer ABG pH 7.319 L POC ABG pCO2 50.7 H POC ABG pO2 63.0 L ABG pO2 ABG HCO3 ABG O2 Saturation ABG Base Excess ABG Hemoglobin ABG Oxyhemoglobin ABG Sodium 145.2 H ABG Potassium 5.1 H ABG Chloride 114.0 H ABG Glucose 178 H Oxyhemoglobin Carboxyhemoglobin Sodium Potassium Chloride Carbon Dioxide BUN Creatinine Glucose POC Glucose Hemoglobin A1c Lactic Acid Calcium Phosphorus Magnesium 4.00 H Ferritin Total Bilirubin AST ALT Lactate Dehydrogenase C-Reactive Protein Albumin Triglycerides Arterial Blood Glucose 178 H Arterial Blood Ionized Calcium Urine Creatinine Coronavirus (PCR) 01/27/21 01/27/21 01/27/21 05:29 05:29 05:31 WBC RBC Hgb Hct MCV MCH MCHC RDW Plt Count Lymph % (Auto) Lymph # (Auto) Seg Neutrophils % Seg Neuts % (Manual) Lymphocytes % (Manual) Nucleated RBC % Seg Neutrophils # Seg Neutrophils # Man Lymphocytes # (Manual) Eosinophils # (Manual) D-Dimer ABG pH POC ABG pCO2 POC ABG pO2 ABG pO2 ABG HCO3 ABG O2 Saturation ABG Base Excess ABG Hemoglobin ABG Oxyhemoglobin ABG Sodium ABG Potassium ABG Chloride ABG Glucose Oxyhemoglobin Carboxyhemoglobin Sodium Potassium 5.2 H Chloride 109.6 H Carbon Dioxide BUN 67 H Creatinine 2.8 H Glucose 195 H POC Glucose 176 H Hemoglobin A1c Lactic Acid Calcium 7.9 L Phosphorus Magnesium Ferritin Total Bilirubin AST ALT Lactate Dehydrogenase C-Reactive Protein Albumin Triglycerides 160 H Arterial Blood Glucose Arterial Blood Ionized Calcium Urine Creatinine Coronavirus (PCR) 01/27/21 01/27/21 01/27/21 11:27 18:08 23:30 WBC RBC Hgb Hct MCV MCH MCHC RDW Plt Count Lymph % (Auto) Lymph # (Auto) Seg Neutrophils % Seg Neuts % (Manual) Lymphocytes % (Manual) Nucleated RBC % Seg Neutrophils # Seg Neutrophils # Man Lymphocytes # (Manual) Eosinophils # (Manual) D-Dimer ABG pH POC ABG pCO2 POC ABG pO2 ABG pO2 ABG HCO3 ABG O2 Saturation ABG Base Excess ABG Hemoglobin ABG Oxyhemoglobin ABG Sodium ABG Potassium ABG Chloride ABG Glucose Oxyhemoglobin Carboxyhemoglobin Sodium Potassium Chloride Carbon Dioxide BUN Creatinine Glucose POC Glucose 189 H 212 H 175 H Hemoglobin A1c Lactic Acid Calcium Phosphorus Magnesium Ferritin Total Bilirubin AST ALT Lactate Dehydrogenase C-Reactive Protein Albumin Triglycerides Arterial Blood Glucose Arterial Blood Ionized Calcium Urine Creatinine Coronavirus (PCR) 01/28/21 01/28/21 01/28/21 03:58 04:00 04:00 WBC RBC Hgb Hct MCV MCH MCHC RDW Plt Count Lymph % (Auto) Lymph # (Auto) Seg Neutrophils % Seg Neuts % (Manual) Lymphocytes % (Manual) Nucleated RBC % Seg Neutrophils # Seg Neutrophils # Man Lymphocytes # (Manual) Eosinophils # (Manual) D-Dimer > 53396 H ABG pH POC ABG pCO2 POC ABG pO2 52.9 L ABG pO2 ABG HCO3 ABG O2 Saturation ABG Base Excess ABG Hemoglobin ABG Oxyhemoglobin 84.1 L ABG Sodium 148.9 H ABG Potassium ABG Chloride 117.0 H ABG Glucose 194 H Oxyhemoglobin Carboxyhemoglobin Sodium Potassium Chloride Carbon Dioxide BUN Creatinine Glucose POC Glucose Hemoglobin A1c Lactic Acid Calcium Phosphorus Magnesium Ferritin Total Bilirubin AST ALT Lactate Dehydrogenase 679 H C-Reactive Protein 17.10 H Albumin Triglycerides Arterial Blood Glucose 194 H Arterial Blood Ionized Calcium Urine Creatinine Coronavirus (PCR) 01/28/21 01/28/21 01/28/21 04:00 05:00 06:00 WBC RBC 3.59 L Hgb 11.6 L Hct 34.8 L MCV 97 H MCH MCHC RDW Plt Count Lymph % (Auto) Lymph # (Auto) Seg Neutrophils % Seg Neuts % (Manual) 96.0 H Lymphocytes % (Manual) 3.0 L Nucleated RBC % Seg Neutrophils # Seg Neutrophils # Man Lymphocytes # (Manual) 0.2 L Eosinophils # (Manual) D-Dimer ABG pH POC ABG pCO2 POC ABG pO2 ABG pO2 ABG HCO3 ABG O2 Saturation ABG Base Excess ABG Hemoglobin ABG Oxyhemoglobin ABG Sodium ABG Potassium ABG Chloride ABG Glucose Oxyhemoglobin Carboxyhemoglobin Sodium Potassium Chloride Carbon Dioxide BUN Creatinine Glucose POC Glucose 159 H Hemoglobin A1c Lactic Acid Calcium Phosphorus Magnesium Ferritin 798.0 H Total Bilirubin AST ALT Lactate Dehydrogenase C-Reactive Protein Albumin Triglycerides Arterial Blood Glucose Arterial Blood Ionized Calcium Urine Creatinine Coronavirus (PCR) 01/28/21 01/28/21 01/28/21 06:00 06:00 08:12 WBC RBC Hgb Hct MCV MCH MCHC RDW Plt Count Lymph % (Auto) Lymph # (Auto) Seg Neutrophils % Seg Neuts % (Manual) Lymphocytes % (Manual) Nucleated RBC % Seg Neutrophils # Seg Neutrophils # Man Lymphocytes # (Manual) Eosinophils # (Manual) D-Dimer ABG pH POC ABG pCO2 POC ABG pO2 ABG pO2 ABG HCO3 ABG O2 Saturation ABG Base Excess ABG Hemoglobin ABG Oxyhemoglobin ABG Sodium ABG Potassium ABG Chloride ABG Glucose Oxyhemoglobin Carboxyhemoglobin Sodium Potassium Chloride 111.9 H Carbon Dioxide BUN 59 H Creatinine 2.2 H Glucose 189 H POC Glucose 181 H Hemoglobin A1c Lactic Acid Calcium 8.1 L Phosphorus Magnesium 3.20 H Ferritin Total Bilirubin AST ALT Lactate Dehydrogenase C-Reactive Protein Albumin Triglycerides Arterial Blood Glucose Arterial Blood Ionized Calcium Urine Creatinine Coronavirus (PCR) 01/28/21 01/28/21 01/28/21 12:03 16:43 23:51 WBC RBC Hgb Hct MCV MCH MCHC RDW Plt Count Lymph % (Auto) Lymph # (Auto) Seg Neutrophils % Seg Neuts % (Manual) Lymphocytes % (Manual) Nucleated RBC % Seg Neutrophils # Seg Neutrophils # Man Lymphocytes # (Manual) Eosinophils # (Manual) D-Dimer ABG pH POC ABG pCO2 POC ABG pO2 ABG pO2 ABG HCO3 ABG O2 Saturation ABG Base Excess ABG Hemoglobin ABG Oxyhemoglobin ABG Sodium ABG Potassium ABG Chloride ABG Glucose Oxyhemoglobin Carboxyhemoglobin Sodium Potassium Chloride Carbon Dioxide BUN Creatinine Glucose POC Glucose 164 H 198 H 196 H Hemoglobin A1c Lactic Acid Calcium Phosphorus Magnesium Ferritin Total Bilirubin AST ALT Lactate Dehydrogenase C-Reactive Protein Albumin Triglycerides Arterial Blood Glucose Arterial Blood Ionized Calcium Urine Creatinine Coronavirus (PCR) 01/29/21 01/29/21 01/29/21 05:00 05:23 06:00 WBC RBC Hgb Hct MCV MCH MCHC RDW Plt Count Lymph % (Auto) Lymph # (Auto) Seg Neutrophils % Seg Neuts % (Manual) Lymphocytes % (Manual) Nucleated RBC % Seg Neutrophils # Seg Neutrophils # Man Lymphocytes # (Manual) Eosinophils # (Manual) D-Dimer ABG pH 7.119 L POC ABG pCO2 87.1 H POC ABG pO2 ABG pO2 ABG HCO3 ABG O2 Saturation ABG Base Excess ABG Hemoglobin ABG Oxyhemoglobin ABG Sodium 152.5 H ABG Potassium 5.7 H ABG Chloride 120.0 H ABG Glucose 217 H Oxyhemoglobin Carboxyhemoglobin Sodium 151 H Potassium 5.9 H D Chloride 117.8 H Carbon Dioxide BUN 54 H Creatinine 2.2 H Glucose 208 H POC Glucose 180 H Hemoglobin A1c Lactic Acid Calcium 7.9 L Phosphorus Magnesium Ferritin Total Bilirubin AST ALT Lactate Dehydrogenase C-Reactive Protein Albumin Triglycerides Arterial Blood Glucose 217 H Arterial Blood Ionized Calcium Urine Creatinine Coronavirus (PCR) 01/29/21 01/29/21 01/29/21 12:29 17:28 18:05 WBC RBC Hgb Hct MCV MCH MCHC RDW Plt Count Lymph % (Auto) Lymph # (Auto) Seg Neutrophils % Seg Neuts % (Manual) Lymphocytes % (Manual) Nucleated RBC % Seg Neutrophils # Seg Neutrophils # Man Lymphocytes # (Manual) Eosinophils # (Manual) D-Dimer ABG pH POC ABG pCO2 POC ABG pO2 ABG pO2 ABG HCO3 ABG O2 Saturation ABG Base Excess ABG Hemoglobin ABG Oxyhemoglobin ABG Sodium ABG Potassium ABG Chloride ABG Glucose Oxyhemoglobin Carboxyhemoglobin Sodium 151 H Potassium 5.5 H Chloride 118.2 H Carbon Dioxide BUN 52 H Creatinine 2.2 H Glucose 224 H POC Glucose 181 H 203 H Hemoglobin A1c Lactic Acid Calcium 8.0 L Phosphorus Magnesium Ferritin Total Bilirubin AST ALT Lactate Dehydrogenase C-Reactive Protein Albumin Triglycerides Arterial Blood Glucose Arterial Blood Ionized Calcium Urine Creatinine Coronavirus (PCR) 01/29/21 01/29/21 01/29/21 18:13 23:34 Unknown WBC RBC Hgb Hct MCV 101 H MCH MCHC RDW 15.7 H Plt Count Lymph % (Auto) Lymph # (Auto) Seg Neutrophils % Seg Neuts % (Manual) 95.0 H Lymphocytes % (Manual) 3.0 L Nucleated RBC % Seg Neutrophils # Seg Neutrophils # Man 8.0 H Lymphocytes # (Manual) 0.3 L Eosinophils # (Manual) D-Dimer ABG pH 7.223 L POC ABG pCO2 64.8 H POC ABG pO2 63.6 L ABG pO2 ABG HCO3 ABG O2 Saturation ABG Base Excess ABG Hemoglobin ABG Oxyhemoglobin 89.4 L ABG Sodium 152.9 H ABG Potassium 5.3 H ABG Chloride 121.0 H ABG Glucose 227 H Oxyhemoglobin Carboxyhemoglobin Sodium Potassium Chloride Carbon Dioxide BUN Creatinine Glucose POC Glucose 198 H Hemoglobin A1c Lactic Acid Calcium Phosphorus Magnesium Ferritin Total Bilirubin AST ALT Lactate Dehydrogenase C-Reactive Protein Albumin Triglycerides Arterial Blood Glucose 227 H Arterial Blood Ionized Calcium Urine Creatinine Coronavirus (PCR) 01/30/21 01/30/21 01/30/21 04:00 04:00 04:00 WBC RBC Hgb Hct MCV MCH MCHC RDW Plt Count Lymph % (Auto) Lymph # (Auto) Seg Neutrophils % Seg Neuts % (Manual) Lymphocytes % (Manual) Nucleated RBC % Seg Neutrophils # Seg Neutrophils # Man Lymphocytes # (Manual) Eosinophils # (Manual) D-Dimer > 78635 H ABG pH POC ABG pCO2 POC ABG pO2 ABG pO2 ABG HCO3 ABG O2 Saturation ABG Base Excess ABG Hemoglobin ABG Oxyhemoglobin ABG Sodium ABG Potassium ABG Chloride ABG Glucose Oxyhemoglobin Carboxyhemoglobin Sodium Potassium Chloride Carbon Dioxide BUN Creatinine Glucose 234 H POC Glucose Hemoglobin A1c Lactic Acid Calcium Phosphorus Magnesium Ferritin 763.9 H Total Bilirubin AST ALT Lactate Dehydrogenase 424 H C-Reactive Protein 23.90 H Albumin Triglycerides Arterial Blood Glucose Arterial Blood Ionized Calcium Urine Creatinine Coronavirus (PCR) 01/30/21 01/30/21 01/30/21 04:24 05:00 05:16 WBC RBC 3.57 L Hgb 11.3 L Hct 35.4 L MCV 99 H MCH MCHC RDW 15.6 H Plt Count Lymph % (Auto) Lymph # (Auto) Seg Neutrophils % Seg Neuts % (Manual) 97.0 H Lymphocytes % (Manual) 1.0 L Nucleated RBC % Seg Neutrophils # Seg Neutrophils # Man 8.6 H Lymphocytes # (Manual) 0.1 L Eosinophils # (Manual) D-Dimer ABG pH 7.235 L POC ABG pCO2 69.7 H POC ABG pO2 61.0 L ABG pO2 ABG HCO3 ABG O2 Saturation ABG Base Excess ABG Hemoglobin ABG Oxyhemoglobin 89 L ABG Sodium 154.2 H ABG Potassium 5.4 H ABG Chloride 121.0 H ABG Glucose 247 H Oxyhemoglobin Carboxyhemoglobin Sodium Potassium Chloride Carbon Dioxide BUN Creatinine Glucose POC Glucose 238 H Hemoglobin A1c Lactic Acid Calcium Phosphorus Magnesium Ferritin Total Bilirubin AST ALT Lactate Dehydrogenase C-Reactive Protein Albumin Triglycerides Arterial Blood Glucose 247 H Arterial Blood Ionized Calcium Urine Creatinine Coronavirus (PCR) 01/30/21 01/30/21 01/30/21 06:00 11:28 12:00 WBC RBC Hgb Hct MCV MCH MCHC RDW Plt Count Lymph % (Auto) Lymph # (Auto) Seg Neutrophils % Seg Neuts % (Manual) Lymphocytes % (Manual) Nucleated RBC % Seg Neutrophils # Seg Neutrophils # Man Lymphocytes # (Manual) Eosinophils # (Manual) D-Dimer ABG pH POC ABG pCO2 POC ABG pO2 ABG pO2 ABG HCO3 ABG O2 Saturation ABG Base Excess ABG Hemoglobin ABG Oxyhemoglobin ABG Sodium ABG Potassium ABG Chloride ABG Glucose Oxyhemoglobin Carboxyhemoglobin Sodium 152 H Potassium 5.3 H Chloride 120.5 H Carbon Dioxide BUN 50 H Creatinine 2.3 H Glucose 239 H POC Glucose 153 H Hemoglobin A1c Lactic Acid Calcium 8.2 L Phosphorus Magnesium 2.60 H Ferritin Total Bilirubin AST ALT Lactate Dehydrogenase C-Reactive Protein Albumin Triglycerides 293 H Arterial Blood Glucose Arterial Blood Ionized Calcium Urine Creatinine 53.0 H Coronavirus (PCR) 01/30/21 01/30/21 01/31/21 18:49 23:06 04:00 WBC RBC Hgb Hct MCV MCH MCHC RDW Plt Count Lymph % (Auto) Lymph # (Auto) Seg Neutrophils % Seg Neuts % (Manual) Lymphocytes % (Manual) Nucleated RBC % Seg Neutrophils # Seg Neutrophils # Man Lymphocytes # (Manual) Eosinophils # (Manual) D-Dimer ABG pH POC ABG pCO2 POC ABG pO2 ABG pO2 ABG HCO3 ABG O2 Saturation ABG Base Excess ABG Hemoglobin ABG Oxyhemoglobin ABG Sodium ABG Potassium ABG Chloride ABG Glucose Oxyhemoglobin Carboxyhemoglobin Sodium 156 H Potassium 5.9 H Chloride 122.6 H Carbon Dioxide BUN 61 H Creatinine 3.2 H Glucose 205 H POC Glucose 220 H 192 H Hemoglobin A1c Lactic Acid Calcium 8.0 L Phosphorus Magnesium Ferritin Total Bilirubin AST ALT Lactate Dehydrogenase C-Reactive Protein Albumin Triglycerides Arterial Blood Glucose Arterial Blood Ionized Calcium Urine Creatinine Coronavirus (PCR) 01/31/21 01/31/21 01/31/21 04:40 05:17 11:33 WBC RBC Hgb Hct MCV MCH MCHC RDW Plt Count Lymph % (Auto) Lymph # (Auto) Seg Neutrophils % Seg Neuts % (Manual) Lymphocytes % (Manual) Nucleated RBC % Seg Neutrophils # Seg Neutrophils # Man Lymphocytes # (Manual) Eosinophils # (Manual) D-Dimer ABG pH 7.161 L* POC ABG pCO2 POC ABG pO2 ABG pO2 142.2 H ABG HCO3 28.3 H ABG O2 Saturation ABG Base Excess -3.2 L ABG Hemoglobin ABG Oxyhemoglobin ABG Sodium ABG Potassium ABG Chloride ABG Glucose Oxyhemoglobin Carboxyhemoglobin Sodium Potassium Chloride Carbon Dioxide BUN Creatinine Glucose POC Glucose 200 H 167 H Hemoglobin A1c Lactic Acid Calcium Phosphorus Magnesium Ferritin Total Bilirubin AST ALT Lactate Dehydrogenase C-Reactive Protein Albumin Triglycerides Arterial Blood Glucose Arterial Blood Ionized Calcium Urine Creatinine Coronavirus (PCR) 01/31/21 01/31/21 01/31/21 14:00 17:10 23:24 WBC RBC Hgb Hct MCV MCH MCHC RDW Plt Count Lymph % (Auto) Lymph # (Auto) Seg Neutrophils % Seg Neuts % (Manual) Lymphocytes % (Manual) Nucleated RBC % Seg Neutrophils # Seg Neutrophils # Man Lymphocytes # (Manual) Eosinophils # (Manual) D-Dimer ABG pH 7.205 L POC ABG pCO2 POC ABG pO2 ABG pO2 90.9 H ABG HCO3 26.5 H ABG O2 Saturation ABG Base Excess -2.7 L ABG Hemoglobin 12.3 L ABG Oxyhemoglobin ABG Sodium ABG Potassium ABG Chloride ABG Glucose Oxyhemoglobin 93.9 L Carboxyhemoglobin Sodium Potassium Chloride Carbon Dioxide BUN Creatinine Glucose POC Glucose 190 H 203 H Hemoglobin A1c Lactic Acid Calcium Phosphorus Magnesium Ferritin Total Bilirubin AST ALT Lactate Dehydrogenase C-Reactive Protein Albumin Triglycerides Arterial Blood Glucose Arterial Blood Ionized Calcium Urine Creatinine Coronavirus (PCR) 02/01/21 02/01/21 02/01/21 05:15 06:22 10:20 WBC RBC Hgb Hct MCV MCH MCHC RDW Plt Count Lymph % (Auto) Lymph # (Auto) Seg Neutrophils % Seg Neuts % (Manual) Lymphocytes % (Manual) Nucleated RBC % Seg Neutrophils # Seg Neutrophils # Man Lymphocytes # (Manual) Eosinophils # (Manual) D-Dimer ABG pH 6.920 L* 7.116 L* POC ABG pCO2 POC ABG pO2 ABG pO2 102.9 H 113.1 H ABG HCO3 28.2 H ABG O2 Saturation 92.9 L ABG Base Excess -6.9 L -5.8 L ABG Hemoglobin 11.6 L 9.5 L ABG Oxyhemoglobin ABG Sodium ABG Potassium ABG Chloride ABG Glucose Oxyhemoglobin 90.5 L 94.6 L Carboxyhemoglobin Sodium Potassium Chloride Carbon Dioxide BUN Creatinine Glucose POC Glucose 221 H Hemoglobin A1c Lactic Acid Calcium Phosphorus Magnesium Ferritin Total Bilirubin AST ALT Lactate Dehydrogenase C-Reactive Protein Albumin Triglycerides Arterial Blood Glucose Arterial Blood Ionized Calcium Urine Creatinine Coronavirus (PCR) 02/01/21 02/01/21 02/01/21 11:12 12:35 16:00 WBC RBC Hgb Hct MCV MCH MCHC RDW Plt Count Lymph % (Auto) Lymph # (Auto) Seg Neutrophils % Seg Neuts % (Manual) Lymphocytes % (Manual) Nucleated RBC % Seg Neutrophils # Seg Neutrophils # Man Lymphocytes # (Manual) Eosinophils # (Manual) D-Dimer ABG pH 7.155 L* POC ABG pCO2 POC ABG pO2 ABG pO2 94.6 H ABG HCO3 ABG O2 Saturation ABG Base Excess -6.5 L ABG Hemoglobin 13.1 L ABG Oxyhemoglobin ABG Sodium ABG Potassium ABG Chloride ABG Glucose Oxyhemoglobin 93.7 L Carboxyhemoglobin Sodium 155 H Potassium 5.1 H Chloride 120.5 H Carbon Dioxide BUN 90 H Creatinine 6.1 H D Glucose 238 H POC Glucose 207 H Hemoglobin A1c Lactic Acid Calcium 7.4 L Phosphorus Magnesium Ferritin Total Bilirubin AST ALT Lactate Dehydrogenase C-Reactive Protein Albumin Triglycerides Arterial Blood Glucose Arterial Blood Ionized Calcium Urine Creatinine Coronavirus (PCR) 02/01/21 02/01/21 02/02/21 17:10 23:47 04:04 WBC RBC 3.02 L Hgb 9.8 L Hct 30.7 L MCV 102 H MCH MCHC RDW 15.6 H Plt Count Lymph % (Auto) 4.2 L Lymph # (Auto) 0.3 L Seg Neutrophils % Seg Neuts % (Manual) Lymphocytes % (Manual) Nucleated RBC % Seg Neutrophils # Seg Neutrophils # Man Lymphocytes # (Manual) Eosinophils # (Manual) D-Dimer ABG pH POC ABG pCO2 POC ABG pO2 ABG pO2 ABG HCO3 ABG O2 Saturation ABG Base Excess ABG Hemoglobin ABG Oxyhemoglobin ABG Sodium ABG Potassium ABG Chloride ABG Glucose Oxyhemoglobin Carboxyhemoglobin Sodium Potassium Chloride Carbon Dioxide BUN Creatinine Glucose POC Glucose 238 H 235 H Hemoglobin A1c Lactic Acid Calcium Phosphorus Magnesium Ferritin Total Bilirubin AST ALT Lactate Dehydrogenase C-Reactive Protein Albumin Triglycerides Arterial Blood Glucose Arterial Blood Ionized Calcium Urine Creatinine Coronavirus (PCR) 02/02/21 02/02/21 02/02/21 05:18 05:35 11:28 WBC RBC Hgb Hct MCV MCH MCHC RDW Plt Count Lymph % (Auto) Lymph # (Auto) Seg Neutrophils % Seg Neuts % (Manual) Lymphocytes % (Manual) Nucleated RBC % Seg Neutrophils # Seg Neutrophils # Man Lymphocytes # (Manual) Eosinophils # (Manual) D-Dimer ABG pH 7.195 L* POC ABG pCO2 POC ABG pO2 ABG pO2 72.5 L ABG HCO3 ABG O2 Saturation 91.2 L ABG Base Excess -5.3 L ABG Hemoglobin 6.0 L ABG Oxyhemoglobin ABG Sodium ABG Potassium ABG Chloride ABG Glucose Oxyhemoglobin 89.1 L Carboxyhemoglobin Sodium Potassium Chloride 110.4 H Carbon Dioxide BUN 92 H Creatinine Glucose POC Glucose 239 H Hemoglobin A1c Lactic Acid Calcium Phosphorus Magnesium Ferritin Total Bilirubin AST ALT Lactate Dehydrogenase C-Reactive Protein Albumin Triglycerides Arterial Blood Glucose Arterial Blood Ionized Calcium Urine Creatinine Coronavirus (PCR) 02/02/21 02/02/21 02/02/21 11:53 16:00 18:04 WBC RBC Hgb Hct MCV MCH MCHC RDW Plt Count Lymph % (Auto) Lymph # (Auto) Seg Neutrophils % Seg Neuts % (Manual) Lymphocytes % (Manual) Nucleated RBC % Seg Neutrophils # Seg Neutrophils # Man Lymphocytes # (Manual) Eosinophils # (Manual) D-Dimer ABG pH POC ABG pCO2 POC ABG pO2 ABG pO2 ABG HCO3 ABG O2 Saturation ABG Base Excess ABG Hemoglobin ABG Oxyhemoglobin ABG Sodium ABG Potassium ABG Chloride ABG Glucose Oxyhemoglobin Carboxyhemoglobin Sodium Potassium Chloride Carbon Dioxide BUN Creatinine Glucose POC Glucose 248 H 199 H Hemoglobin A1c 6.3 H Lactic Acid Calcium Phosphorus Magnesium Ferritin Total Bilirubin AST ALT Lactate Dehydrogenase C-Reactive Protein Albumin Triglycerides Arterial Blood Glucose Arterial Blood Ionized Calcium Urine Creatinine Coronavirus (PCR) 02/02/21 02/03/21 02/03/21 23:31 03:12 04:10 WBC RBC 3.06 L Hgb 9.7 L Hct 30.4 L MCV 99 H MCH MCHC RDW 15.3 H Plt Count Lymph % (Auto) 6.1 L Lymph # (Auto) 0.5 L Seg Neutrophils % 86.1 H Seg Neuts % (Manual) Lymphocytes % (Manual) Nucleated RBC % Seg Neutrophils # Seg Neutrophils # Man Lymphocytes # (Manual) Eosinophils # (Manual) D-Dimer ABG pH 7.199 L POC ABG pCO2 48.3 H POC ABG pO2 68.3 L ABG pO2 ABG HCO3 ABG O2 Saturation ABG Base Excess ABG Hemoglobin 10.2 L ABG Oxyhemoglobin 89.2 L ABG Sodium 155.0 H ABG Potassium 4.6 H ABG Chloride 121.0 H ABG Glucose 166 H Oxyhemoglobin Carboxyhemoglobin 0.3 L Sodium Potassium Chloride Carbon Dioxide BUN Creatinine Glucose POC Glucose 200 H Hemoglobin A1c Lactic Acid Calcium Phosphorus Magnesium Ferritin Total Bilirubin AST ALT Lactate Dehydrogenase C-Reactive Protein Albumin Triglycerides Arterial Blood Glucose 166 H Arterial Blood Ionized Calcium 4.1 L Urine Creatinine Coronavirus (PCR) 02/03/21 02/03/21 02/03/21 04:10 05:34 11:51 WBC RBC Hgb Hct MCV MCH MCHC RDW Plt Count Lymph % (Auto) Lymph # (Auto) Seg Neutrophils % Seg Neuts % (Manual) Lymphocytes % (Manual) Nucleated RBC % Seg Neutrophils # Seg Neutrophils # Man Lymphocytes # (Manual) Eosinophils # (Manual) D-Dimer ABG pH POC ABG pCO2 POC ABG pO2 ABG pO2 ABG HCO3 ABG O2 Saturation ABG Base Excess ABG Hemoglobin ABG Oxyhemoglobin ABG Sodium ABG Potassium ABG Chloride ABG Glucose Oxyhemoglobin Carboxyhemoglobin Sodium 154 H D Potassium Chloride 116.7 H Carbon Dioxide 20 L BUN 130 H Creatinine 9.2 H D Glucose 160 H POC Glucose 130 H 154 H Hemoglobin A1c Lactic Acid Calcium 6.7 L Phosphorus 8.60 H Magnesium Ferritin Total Bilirubin AST ALT Lactate Dehydrogenase C-Reactive Protein Albumin Triglycerides Arterial Blood Glucose Arterial Blood Ionized Calcium Urine Creatinine Coronavirus (PCR) 02/03/21 02/03/21 02/04/21 16:49 23:22 03:48 WBC RBC Hgb Hct MCV MCH MCHC RDW Plt Count Lymph % (Auto) Lymph # (Auto) Seg Neutrophils % Seg Neuts % (Manual) Lymphocytes % (Manual) Nucleated RBC % Seg Neutrophils # Seg Neutrophils # Man Lymphocytes # (Manual) Eosinophils # (Manual) D-Dimer ABG pH 7.201 L POC ABG pCO2 54.5 H POC ABG pO2 74.0 L ABG pO2 ABG HCO3 ABG O2 Saturation ABG Base Excess ABG Hemoglobin 9.7 L ABG Oxyhemoglobin 91.1 L ABG Sodium 146.2 H ABG Potassium ABG Chloride 114.0 H ABG Glucose 155 H Oxyhemoglobin Carboxyhemoglobin Sodium Potassium Chloride Carbon Dioxide BUN Creatinine Glucose POC Glucose 164 H 152 H Hemoglobin A1c Lactic Acid Calcium Phosphorus Magnesium Ferritin Total Bilirubin AST ALT Lactate Dehydrogenase C-Reactive Protein Albumin Triglycerides Arterial Blood Glucose 155 H Arterial Blood Ionized Calcium 3.9 L Urine Creatinine Coronavirus (PCR) 02/04/21 02/04/21 02/04/21 04:45 04:45 04:45 WBC RBC 2.75 L Hgb 9.1 L Hct 26.9 L MCV 98 H MCH 33 H MCHC RDW Plt Count Lymph % (Auto) 6.8 L Lymph # (Auto) 0.5 L Seg Neutrophils % 87.2 H Seg Neuts % (Manual) Lymphocytes % (Manual) Nucleated RBC % Seg Neutrophils # Seg Neutrophils # Man Lymphocytes # (Manual) Eosinophils # (Manual) D-Dimer ABG pH POC ABG pCO2 POC ABG pO2 ABG pO2 ABG HCO3 ABG O2 Saturation ABG Base Excess ABG Hemoglobin ABG Oxyhemoglobin ABG Sodium ABG Potassium ABG Chloride ABG Glucose Oxyhemoglobin Carboxyhemoglobin Sodium 149 H Potassium Chloride 111.5 H Carbon Dioxide BUN 99 H Creatinine 8.5 H Glucose 139 H POC Glucose Hemoglobin A1c Lactic Acid Calcium 6.8 L Phosphorus 8.40 H Magnesium Ferritin Total Bilirubin AST ALT Lactate Dehydrogenase C-Reactive Protein Albumin Triglycerides Arterial Blood Glucose Arterial Blood Ionized Calcium Urine Creatinine Coronavirus (PCR) 02/04/21 02/04/21 02/04/21 06:05 11:44 18:00 WBC RBC Hgb Hct MCV MCH MCHC RDW Plt Count Lymph % (Auto) Lymph # (Auto) Seg Neutrophils % Seg Neuts % (Manual) Lymphocytes % (Manual) Nucleated RBC % Seg Neutrophils # Seg Neutrophils # Man Lymphocytes # (Manual) Eosinophils # (Manual) D-Dimer ABG pH POC ABG pCO2 POC ABG pO2 ABG pO2 ABG HCO3 ABG O2 Saturation ABG Base Excess ABG Hemoglobin ABG Oxyhemoglobin ABG Sodium ABG Potassium ABG Chloride ABG Glucose Oxyhemoglobin Carboxyhemoglobin Sodium Potassium Chloride Carbon Dioxide BUN Creatinine Glucose POC Glucose 138 H 129 H 163 H Hemoglobin A1c Lactic Acid Calcium Phosphorus Magnesium Ferritin Total Bilirubin AST ALT Lactate Dehydrogenase C-Reactive Protein Albumin Triglycerides Arterial Blood Glucose Arterial Blood Ionized Calcium Urine Creatinine Coronavirus (PCR) 02/04/21 02/05/21 02/05/21 23:48 01:50 01:50 WBC RBC 2.43 L Hgb 8.3 L Hct 23.6 L MCV 97 H MCH 34 H MCHC 35 H RDW Plt Count 137 L Lymph % (Auto) 8.4 L Lymph # (Auto) 0.6 L Seg Neutrophils % 86.1 H Seg Neuts % (Manual) Lymphocytes % (Manual) Nucleated RBC % Seg Neutrophils # Seg Neutrophils # Man Lymphocytes # (Manual) Eosinophils # (Manual) D-Dimer ABG pH POC ABG pCO2 POC ABG pO2 ABG pO2 ABG HCO3 ABG O2 Saturation ABG Base Excess ABG Hemoglobin ABG Oxyhemoglobin ABG Sodium ABG Potassium ABG Chloride ABG Glucose Oxyhemoglobin Carboxyhemoglobin Sodium Potassium Chloride Carbon Dioxide BUN Creatinine Glucose POC Glucose 157 H Hemoglobin A1c Lactic Acid Calcium Phosphorus 5.60 H D Magnesium Ferritin Total Bilirubin AST ALT Lactate Dehydrogenase C-Reactive Protein Albumin Triglycerides Arterial Blood Glucose Arterial Blood Ionized Calcium Urine Creatinine Coronavirus (PCR) 02/05/21 02/05/21 02/05/21 03:44 05:27 09:15 WBC RBC Hgb Hct MCV MCH MCHC RDW Plt Count Lymph % (Auto) Lymph # (Auto) Seg Neutrophils % Seg Neuts % (Manual) Lymphocytes % (Manual) Nucleated RBC % Seg Neutrophils # Seg Neutrophils # Man Lymphocytes # (Manual) Eosinophils # (Manual) D-Dimer ABG pH 7.202 L POC ABG pCO2 63.7 H POC ABG pO2 69.0 L ABG pO2 ABG HCO3 ABG O2 Saturation ABG Base Excess ABG Hemoglobin 9.4 L ABG Oxyhemoglobin ABG Sodium ABG Potassium ABG Chloride 108.0 H ABG Glucose 186 H Oxyhemoglobin Carboxyhemoglobin Sodium Potassium Chloride Carbon Dioxide BUN 78 H Creatinine 8.0 H Glucose 163 H POC Glucose 157 H Hemoglobin A1c Lactic Acid Calcium 6.3 L Phosphorus Magnesium Ferritin Total Bilirubin AST ALT Lactate Dehydrogenase C-Reactive Protein Albumin Triglycerides Arterial Blood Glucose 186 H Arterial Blood Ionized Calcium 3.9 L Urine Creatinine Coronavirus (PCR) 02/05/21 02/05/21 02/05/21 11:47 17:39 23:40 WBC RBC Hgb Hct MCV MCH MCHC RDW Plt Count Lymph % (Auto) Lymph # (Auto) Seg Neutrophils % Seg Neuts % (Manual) Lymphocytes % (Manual) Nucleated RBC % Seg Neutrophils # Seg Neutrophils # Man Lymphocytes # (Manual) Eosinophils # (Manual) D-Dimer ABG pH 7.273 L POC ABG pCO2 62.1 H POC ABG pO2 72.0 L ABG pO2 ABG HCO3 ABG O2 Saturation ABG Base Excess ABG Hemoglobin 9.1 L ABG Oxyhemoglobin 91.3 L ABG Sodium ABG Potassium 3.1 L ABG Chloride ABG Glucose 125 H Oxyhemoglobin Carboxyhemoglobin Sodium Potassium Chloride Carbon Dioxide BUN Creatinine Glucose POC Glucose 126 H 126 H Hemoglobin A1c Lactic Acid Calcium Phosphorus Magnesium Ferritin Total Bilirubin AST ALT Lactate Dehydrogenase C-Reactive Protein Albumin Triglycerides Arterial Blood Glucose 125 H Arterial Blood Ionized Calcium 4.0 L Urine Creatinine Coronavirus (PCR) 02/06/21 02/06/21 02/06/21 04:30 04:57 09:45 WBC RBC Hgb Hct MCV MCH MCHC RDW Plt Count Lymph % (Auto) Lymph # (Auto) Seg Neutrophils % Seg Neuts % (Manual) Lymphocytes % (Manual) Nucleated RBC % Seg Neutrophils # Seg Neutrophils # Man Lymphocytes # (Manual) Eosinophils # (Manual) D-Dimer ABG pH 7.159 L 7.138 L* POC ABG pCO2 76.3 H POC ABG pO2 66.9 L ABG pO2 ABG HCO3 ABG O2 Saturation 93.4 L ABG Base Excess -6.0 L ABG Hemoglobin 11.2 L 11.7 L ABG Oxyhemoglobin 88.2 L ABG Sodium ABG Potassium ABG Chloride ABG Glucose 134 H Oxyhemoglobin 91.2 L Carboxyhemoglobin Sodium Potassium Chloride Carbon Dioxide BUN Creatinine Glucose POC Glucose 124 H Hemoglobin A1c Lactic Acid Calcium Phosphorus Magnesium Ferritin Total Bilirubin AST ALT Lactate Dehydrogenase C-Reactive Protein Albumin Triglycerides Arterial Blood Glucose 134 H Arterial Blood Ionized Calcium 3.9 L Urine Creatinine Coronavirus (PCR) 02/06/21 02/06/21 02/06/21 11:11 17:00 17:00 WBC RBC Hgb Hct MCV MCH MCHC RDW Plt Count Lymph % (Auto) Lymph # (Auto) Seg Neutrophils % Seg Neuts % (Manual) Lymphocytes % (Manual) Nucleated RBC % Seg Neutrophils # Seg Neutrophils # Man Lymphocytes # (Manual) Eosinophils # (Manual) D-Dimer ABG pH 7.158 L* POC ABG pCO2 POC ABG pO2 ABG pO2 109.8 H ABG HCO3 28.7 H ABG O2 Saturation ABG Base Excess -2.5 L ABG Hemoglobin ABG Oxyhemoglobin ABG Sodium ABG Potassium ABG Chloride ABG Glucose Oxyhemoglobin 94.5 L Carboxyhemoglobin Sodium Potassium Chloride Carbon Dioxide BUN Creatinine Glucose POC Glucose 120 H Hemoglobin A1c Lactic Acid Calcium Phosphorus Magnesium Ferritin Total Bilirubin AST ALT Lactate Dehydrogenase C-Reactive Protein Albumin Triglycerides 503 H Arterial Blood Glucose Arterial Blood Ionized Calcium Urine Creatinine Coronavirus (PCR) 02/06/21 02/06/21 02/06/21 17:28 20:16 Unknown WBC 13.5 H RBC 2.98 L Hgb 9.3 L Hct 28.6 L MCV 96 H MCH MCHC RDW Plt Count Lymph % (Auto) Lymph # (Auto) Seg Neutrophils % Seg Neuts % (Manual) 87.0 H Lymphocytes % (Manual) 7.0 L Nucleated RBC % Seg Neutrophils # Seg Neutrophils # Man 11.7 H Lymphocytes # (Manual) 0.9 L Eosinophils # (Manual) 0.5 H D-Dimer ABG pH POC ABG pCO2 POC ABG pO2 ABG pO2 ABG HCO3 ABG O2 Saturation ABG Base Excess ABG Hemoglobin ABG Oxyhemoglobin ABG Sodium ABG Potassium ABG Chloride ABG Glucose Oxyhemoglobin Carboxyhemoglobin Sodium Potassium Chloride Carbon Dioxide BUN Creatinine Glucose POC Glucose 147 H 164 H Hemoglobin A1c Lactic Acid Calcium Phosphorus Magnesium Ferritin Total Bilirubin AST ALT Lactate Dehydrogenase C-Reactive Protein Albumin Triglycerides Arterial Blood Glucose Arterial Blood Ionized Calcium Urine Creatinine Coronavirus (PCR) 02/06/21 02/07/21 02/07/21 Unknown 01:21 04:00 WBC 12.0 H RBC 2.61 L Hgb 8.2 L Hct 24.5 L MCV MCH MCHC RDW Plt Count Lymph % (Auto) 8.9 L Lymph # (Auto) 1.1 L Seg Neutrophils % 86.3 H Seg Neuts % (Manual) Lymphocytes % (Manual) Nucleated RBC % Seg Neutrophils # 10.3 H Seg Neutrophils # Man Lymphocytes # (Manual) Eosinophils # (Manual) D-Dimer ABG pH POC ABG pCO2 POC ABG pO2 ABG pO2 ABG HCO3 ABG O2 Saturation ABG Base Excess ABG Hemoglobin ABG Oxyhemoglobin ABG Sodium ABG Potassium ABG Chloride ABG Glucose Oxyhemoglobin Carboxyhemoglobin Sodium Potassium 3.5 L Chloride Carbon Dioxide BUN 58 H Creatinine 6.6 H Glucose 107 H POC Glucose 173 H Hemoglobin A1c Lactic Acid Calcium 6.7 L Phosphorus 8.00 H D Magnesium Ferritin Total Bilirubin AST ALT Lactate Dehydrogenase C-Reactive Protein Albumin Triglycerides Arterial Blood Glucose Arterial Blood Ionized Calcium Urine Creatinine Coronavirus (PCR) 02/07/21 02/07/21 02/07/21 04:00 04:45 11:49 WBC RBC Hgb Hct MCV MCH MCHC RDW Plt Count Lymph % (Auto) Lymph # (Auto) Seg Neutrophils % Seg Neuts % (Manual) Lymphocytes % (Manual) Nucleated RBC % Seg Neutrophils # Seg Neutrophils # Man Lymphocytes # (Manual) Eosinophils # (Manual) D-Dimer ABG pH 7.287 L POC ABG pCO2 64.8 H POC ABG pO2 74.0 L ABG pO2 ABG HCO3 ABG O2 Saturation ABG Base Excess ABG Hemoglobin 9.1 L ABG Oxyhemoglobin 92.0 L ABG Sodium ABG Potassium 2.8 L ABG Chloride ABG Glucose 226 H Oxyhemoglobin Carboxyhemoglobin Sodium Potassium Chloride Carbon Dioxide BUN Creatinine Glucose POC Glucose 170 H Hemoglobin A1c Lactic Acid Calcium Phosphorus 5.50 H D Magnesium Ferritin Total Bilirubin AST ALT Lactate Dehydrogenase C-Reactive Protein Albumin Triglycerides Arterial Blood Glucose 226 H Arterial Blood Ionized Calcium 3.7 L Urine Creatinine Coronavirus (PCR) 02/07/21 02/07/21 02/07/21 13:48 17:45 23:02 WBC RBC Hgb Hct MCV MCH MCHC RDW Plt Count Lymph % (Auto) Lymph # (Auto) Seg Neutrophils % Seg Neuts % (Manual) Lymphocytes % (Manual) Nucleated RBC % Seg Neutrophils # Seg Neutrophils # Man Lymphocytes # (Manual) Eosinophils # (Manual) D-Dimer ABG pH POC ABG pCO2 POC ABG pO2 ABG pO2 ABG HCO3 ABG O2 Saturation ABG Base Excess ABG Hemoglobin ABG Oxyhemoglobin ABG Sodium ABG Potassium ABG Chloride ABG Glucose Oxyhemoglobin Carboxyhemoglobin Sodium 136 L Potassium 2.6 L* D Chloride 95.1 L Carbon Dioxide 33 H D BUN 30 H Creatinine 3.6 H Glucose 184 H POC Glucose 172 H 172 H Hemoglobin A1c Lactic Acid Calcium 6.9 L Phosphorus Magnesium Ferritin Total Bilirubin AST ALT Lactate Dehydrogenase C-Reactive Protein Albumin Triglycerides Arterial Blood Glucose Arterial Blood Ionized Calcium Urine Creatinine Coronavirus (PCR) 02/08/21 02/08/21 02/08/21 05:22 06:00 06:00 WBC RBC 2.21 L Hgb 7.2 L Hct 21.0 L MCV 95 H MCH MCHC RDW Plt Count Lymph % (Auto) Lymph # (Auto) Seg Neutrophils % Seg Neuts % (Manual) 87.0 H Lymphocytes % (Manual) 4.0 L Nucleated RBC % Seg Neutrophils # Seg Neutrophils # Man 8.5 H Lymphocytes # (Manual) 0.4 L Eosinophils # (Manual) D-Dimer ABG pH POC ABG pCO2 POC ABG pO2 ABG pO2 ABG HCO3 ABG O2 Saturation ABG Base Excess ABG Hemoglobin ABG Oxyhemoglobin ABG Sodium ABG Potassium ABG Chloride ABG Glucose Oxyhemoglobin Carboxyhemoglobin Sodium 136 L Potassium 2.4 L* Chloride 93.1 L Carbon Dioxide 36 H BUN 43 H Creatinine 5.4 H Glucose 167 H POC Glucose 162 H Hemoglobin A1c Lactic Acid Calcium 6.3 L Phosphorus Magnesium Ferritin Total Bilirubin AST ALT Lactate Dehydrogenase C-Reactive Protein Albumin Triglycerides Arterial Blood Glucose Arterial Blood Ionized Calcium Urine Creatinine Coronavirus (PCR) 02/08/21 02/08/21 02/08/21 11:44 17:53 18:56 WBC RBC Hgb Hct MCV MCH MCHC RDW Plt Count Lymph % (Auto) Lymph # (Auto) Seg Neutrophils % Seg Neuts % (Manual) Lymphocytes % (Manual) Nucleated RBC % Seg Neutrophils # Seg Neutrophils # Man Lymphocytes # (Manual) Eosinophils # (Manual) D-Dimer ABG pH POC ABG pCO2 POC ABG pO2 ABG pO2 ABG HCO3 ABG O2 Saturation ABG Base Excess ABG Hemoglobin ABG Oxyhemoglobin ABG Sodium ABG Potassium ABG Chloride ABG Glucose Oxyhemoglobin Carboxyhemoglobin Sodium Potassium 2.9 L* D Chloride Carbon Dioxide BUN Creatinine Glucose POC Glucose 164 H 154 H Hemoglobin A1c Lactic Acid Calcium Phosphorus Magnesium Ferritin Total Bilirubin AST ALT Lactate Dehydrogenase C-Reactive Protein Albumin Triglycerides Arterial Blood Glucose Arterial Blood Ionized Calcium Urine Creatinine Coronavirus (PCR) 02/08/21 02/08/21 02/09/21 23:24 23:58 03:21 WBC RBC Hgb Hct MCV MCH MCHC RDW Plt Count Lymph % (Auto) Lymph # (Auto) Seg Neutrophils % Seg Neuts % (Manual) Lymphocytes % (Manual) Nucleated RBC % Seg Neutrophils # Seg Neutrophils # Man Lymphocytes # (Manual) Eosinophils # (Manual) D-Dimer ABG pH 7.319 L POC ABG pCO2 63.3 H 68.3 H POC ABG pO2 71.2 L 76.5 L ABG pO2 ABG HCO3 ABG O2 Saturation ABG Base Excess ABG Hemoglobin 8.2 L 7.0 L ABG Oxyhemoglobin 91.8 L 92.2 L ABG Sodium 134.6 L 133.0 L ABG Potassium 2.3 L 3.1 L ABG Chloride 96.0 L 95.0 L ABG Glucose 184 H 154 H Oxyhemoglobin Carboxyhemoglobin Sodium Potassium Chloride Carbon Dioxide BUN Creatinine Glucose POC Glucose 152 H Hemoglobin A1c Lactic Acid Calcium Phosphorus Magnesium Ferritin Total Bilirubin AST ALT Lactate Dehydrogenase C-Reactive Protein Albumin Triglycerides Arterial Blood Glucose 184 H 154 H Arterial Blood Ionized Calcium 3.6 L 3.5 L Urine Creatinine Coronavirus (PCR) 02/09/21 02/09/21 02/09/21 05:10 05:10 06:04 WBC RBC 2.14 L Hgb 7.0 L Hct 20.5 L MCV 96 H MCH 33 H MCHC RDW Plt Count Lymph % (Auto) Lymph # (Auto) Seg Neutrophils % Seg Neuts % (Manual) 82.0 H Lymphocytes % (Manual) 9.0 L Nucleated RBC % 1.0 H Seg Neutrophils # Seg Neutrophils # Man 8.9 H Lymphocytes # (Manual) 1.0 L Eosinophils # (Manual) D-Dimer ABG pH POC ABG pCO2 POC ABG pO2 ABG pO2 ABG HCO3 ABG O2 Saturation ABG Base Excess ABG Hemoglobin ABG Oxyhemoglobin ABG Sodium ABG Potassium ABG Chloride ABG Glucose Oxyhemoglobin Carboxyhemoglobin Sodium 135 L Potassium 3.2 L Chloride 91.0 L Carbon Dioxide 32 H BUN 54 H Creatinine 6.6 H Glucose 163 H POC Glucose 149 H Hemoglobin A1c Lactic Acid Calcium 6.2 L Phosphorus Magnesium Ferritin Total Bilirubin AST ALT Lactate Dehydrogenase C-Reactive Protein Albumin Triglycerides Arterial Blood Glucose Arterial Blood Ionized Calcium Urine Creatinine Coronavirus (PCR) 02/09/21 02/09/21 02/09/21 12:02 13:32 18:06 WBC RBC Hgb Hct MCV MCH MCHC RDW Plt Count Lymph % (Auto) Lymph # (Auto) Seg Neutrophils % Seg Neuts % (Manual) Lymphocytes % (Manual) Nucleated RBC % Seg Neutrophils # Seg Neutrophils # Man Lymphocytes # (Manual) Eosinophils # (Manual) D-Dimer ABG pH POC ABG pCO2 POC ABG pO2 ABG pO2 ABG HCO3 ABG O2 Saturation ABG Base Excess ABG Hemoglobin ABG Oxyhemoglobin ABG Sodium ABG Potassium ABG Chloride ABG Glucose Oxyhemoglobin Carboxyhemoglobin Sodium Potassium Chloride Carbon Dioxide BUN Creatinine Glucose POC Glucose 147 H 152 H Hemoglobin A1c Lactic Acid Calcium Phosphorus Magnesium Ferritin Total Bilirubin AST ALT Lactate Dehydrogenase C-Reactive Protein Albumin Triglycerides 250 H Arterial Blood Glucose Arterial Blood Ionized Calcium Urine Creatinine Coronavirus (PCR) 02/09/21 02/10/21 23:42 04:00 WBC RBC Hgb Hct MCV MCH MCHC RDW Plt Count Lymph % (Auto) Lymph # (Auto) Seg Neutrophils % Seg Neuts % (Manual) Lymphocytes % (Manual) Nucleated RBC % Seg Neutrophils # Seg Neutrophils # Man Lymphocytes # (Manual) Eosinophils # (Manual) D-Dimer ABG pH POC ABG pCO2 65.8 H POC ABG pO2 68.0 L ABG pO2 ABG HCO3 ABG O2 Saturation ABG Base Excess ABG Hemoglobin 8.3 L ABG Oxyhemoglobin ABG Sodium 132.4 L ABG Potassium 2.9 L ABG Chloride 92.0 L ABG Glucose 174 H Oxyhemoglobin Carboxyhemoglobin Sodium Potassium Chloride Carbon Dioxide BUN Creatinine Glucose POC Glucose 147 H Hemoglobin A1c Lactic Acid Calcium Phosphorus Magnesium Ferritin Total Bilirubin AST ALT Lactate Dehydrogenase C-Reactive Protein Albumin Triglycerides Arterial Blood Glucose 174 H Arterial Blood Ionized Calcium 3.4 L Urine Creatinine Coronavirus (PCR)
[2021-02-10] MEDS: fentaNYL 100 MCG/2 ML INJ IV PRN (13:46)
--- NOTE | 2021-02-10 14:31 | Progress Note ---
Assessment and Plan Cultures: Blood culture 02/08/2021 no growth today SARS CoV2 PCR positive 01/22/2021 respiratory culture: Usual respiratory dillon Blood Culture 01/30/2021 no growth today Urine culture 01/30/2021 no growth today Sputum culture 01/30/2021 usual respiratory dillon Blood culture 02/04/2021 coag negative staph 2 of 4 Urine culture 02/04/2021 no growth Sputum culture 02/04/2021 Maegan albicans Assessment: 60 year old male with history of morbid obesity admitted on 01/22/2021 secondary to 3-day history of worsening shortness of breath associated with fever, chills, loss of smell and taste: #Severe sepsis with septic shock: remains with intermittent high fever now off pressors. Right IJ removed. Likely due to GPC bacteremia. Initial sepsis due to bilateral pneumonia. Urinalysis negative. Procalcitonin elevated in the setting of DEISI. Leg US no DVT. #Coag-neg Staph bacteremia: new blood culture on 02/04/2021 with GPC 2 of 4 bottles, possible real. #Critical COVID-19 pneumonia: Patient remains intubated. Chest x-ray with bilateral airspace disease. Inflammatory markers worsening, D-dimer>10K. CRP 40-->23. Completed remdesivir. #Acute respiratory failure: Remains on the ventilator #Transaminitis: Likely secondary to COVID-19. #DEISI: Worsening, On hemodialysis Recommendations: -Follow-up repeat blood cultures. -Continue vancomycin D6 for coag negative staph bacteremia. Complete 7 days. -Monitor fever GLourdes Walker MD [facility] ([facility] O: [phone] F: [phone] Subjective Date of service: 02/10/21 Principal diagnosis: DEISI Interval history: Febrile to 100.4 with a white count 10.8. Remains ventilated. Objective - Exam Narrative Exam: General appearance: Sedated, intubated Eyes: anicteric sclerae, moist conjunctivae; no lid-lag; PERRLA HENT: Normocephalic, Atraumatic; normal external ears, nares open, oropharynx limited Neck: supple, tracheal midline, no JVD Lungs: Bilateral coarse breath sounds CV: Tachycardic Abdomen: Soft, obese, nontender Extremities: Bilateral leg edema Skin: No rash. Psych: Sedated Neuro: Sedated - Constitutional Vitals: Vital Signs Temp Pulse Resp BP Pulse Ox 99.8 F H 100 H 35 H 144/64 92 02/10/21 12:00 02/10/21 14:00 02/10/21 14:00 02/10/21 14:00 02/10/21 14:00 Temperature -Last 24 Hours Temperature 99.8 F Temperature 99.2 F Temperature 100.4 F Temperature 100.3 F Temperature 100.4 F Temperature 99.6 F Temperature 97.4 F Temperature 99.0 F - Labs CBC & Chem 7: 02/09/21 05:10 02/09/21 05:10 Labs: Abnormal lab results 02/09/21 02/09/21 02/09/21 Range/Units 12:02 18:06 23:42 POC ABG pCO2 (32.0-48.0) mmHg POC ABG pO2 (83-108) mmHg ABG Hemoglobin (12.0-17.5) ABG Sodium (136.0-145.0) mmol/L ABG Potassium (3.40-4.50) mmol/L ABG Chloride (98-107) mmol/L ABG Glucose (65-95) mg/dL POC Glucose 147 H 152 H 147 H (70-105) mg/dL Arterial Blood Glucose (65-95) mg/dL Arterial Blood Ionized Calcium (4.6-5.3) mg/dL 02/10/21 02/10/21 02/10/21 Range/Units 04:00 05:32 11:29 POC ABG pCO2 65.8 H (32.0-48.0) mmHg POC ABG pO2 68.0 L (83-108) mmHg ABG Hemoglobin 8.3 L (12.0-17.5) ABG Sodium 132.4 L (136.0-145.0) mmol/L ABG Potassium 2.9 L (3.40-4.50) mmol/L ABG Chloride 92.0 L (98-107) mmol/L ABG Glucose 174 H (65-95) mg/dL POC Glucose 167 H 147 H (70-105) mg/dL Arterial Blood Glucose 174 H (65-95) mg/dL Arterial Blood Ionized Calcium 3.4 L (4.6-5.3) mg/dL
[2021-02-10 14:50] LABS: Hematocrit 20.2 % (35.5-45.6); Hemoglobin 6.6 gm/dl (11.8-15.2); Mean Corpuscular HGB Conc 33 % (32-34); Mean Corpuscular Volume 94 fl (84-94); Platelet Count 243 K/mm3 (140-440); Red Blood Count 2.14 M/mm3 (3.65-5.03); Red Cell Distribution Width 13.6 % (13.2-15.2)
--- NOTE | 2021-02-10 14:52 | Progress Note ---
<BRENDA MORALES - Last Filed: 02/10/21 14:52> Assessment and Plan Assessment and plan: Sepsis COVID-19 pneumonia Bilateral pneumonia Coag-neg Staph bacteremia Acute hypoxic respiratory failure Acute kidney injury, HD initiated 02/03 Acidosis Hyperphosphatemia Diabetes mellitus Hypertension Hyperlipidemia Chronic renal insufficiency Elevated D-dimer -CCM, nephrology, infectious disease consulted, appreciate recommendations -Antibiotic therapy -COVID-19 PCR positive, Pneumonia on CXR -Steroid therapy, s/p remdesivir -Mechanical ventilation, wean as tolerated -VAP bundle -HD per nephrology -Trend BMP, cBC -Bilateral lower extremity Doppler ultrasound negative for DVT/SVT -Therapeutic Lovenox -SSI and Long-acting insulin -Accu-Cheks every 6 while on tube feedings -Hold home antihypertensive regimen for now as he is still needing vasopressor support -Blood pressure monitoring per protocol -NaHCO3 gtt -Sedated with Precedex, Ativan, fentanyl DVT/GI prophylaxis: SCDs to bilateral lower extremities while in bed, heparin subcu, PPI Dispo: ICU The high probability of a clinically significant, sudden or life threatening deterioration of the [multi] system(s) required my full and direct attention, intervention and personal management. The aggregate critical care time was [32] minutes. This time is in addition to time spent performing reported procedures but includes the following: [x] Data Review and interpretation [x] Patient assessment and monitoring of vital signs [x] Documentation [x] Medication orders and management History Interval history: This is a 60-year-old male with diabetes mellitus, hypertension, hyperlipidemia, chronic renal insufficiency presents to the emergency department on 01/23 with shortness of breath, fevers chills, loss of smell and taste and body aches for the past 3 days via EMS. Per EMS patient's oxygen saturation on room air was 50% and after being placed on nonrebreather it increased 75%. Upon arrival to the emergency department patient was being bagged by EMS. In the emergency room patient was intubated due to severe hypoxia, increased work of breathing and lethargy. Patient was sedated on propofol and fentanyl. Patient presented with fever, tachycardia, tachypnea and acute hypoxic respiratory failure with PNA on CXR meeting Sepsis criteria. Lab work in the emergency department revealed hyponatremia, hypokalemia, hypochloremia, elevated CR/BUN and CXR showed bilateral pneumonia. Patient was admitted to the hospital service as a COVID-19 PUI with consults to infectious disease, nephrology and critical care medicine. 01/24/2021: Patient is intubated and sedated, patient is positive for COVID-19 infection. ID was consulted and put on dexamethasone and remdesivir. Patient has DEISI and nephrology is following. Creatinine stable, patient is urinating. Discussed with nephrology and he is okay with remdesivir. Pulmonary critical care is following for his vent setting. PEEP of 8 and FiO2 of 85%. Patient was alert and off sedatives. 01/25/2021; patient is intubated and on mechanical ventilation. Continue with treatment of Covid. Nephrology and ID is following. Pulmonary is following for vent management 01/26: Remains on mechanical ventilation and [facility] increased his PEEP. [facility] has ordered Precedex for sedation. Possibly need to prone this p.m. No acute events reported overnight. This morning his D-dimer is greater than 10,000 and we have started him on Lovenox 120 mg daily. Nutrition has been consulted for initiation of tube feedings. Patient remains sedated on propofol 40 and fentanyl for the time my examination this morning. 01/27: Continue Lovenox, remdesivir and empiric antibiotics. Patient had a T-max of 101 overnight. The time of examination patient is on CMV 500/18/14/0.61. Kidney function slightly worsened. Sedated on fentanyl ground-level fall and Precedex. Nephrology has increased IV fluids to 100 ml/hr. Continue to trend BMP and CBC. Sedation vacation attempt by RN this AM. 01/28: Patient completed antibiotics today [facility] will paralyze patient and increase sedation. PICC line ordered for possible vasopressor therapy need. Patient's D-dimer remains greater than 10,000 and he still has hyperchloremia. Patient's kidney function has improved today. May need to prone the patient if no improvement in oxygenation is noted in the next 24 hours. The time of my examination patient is sedated with propofol, fentanyl and Precedex and is on assist control 500/18/16/0.80 hypoxic on ABG on 60% FiO2. 01/29: Patient was started on Nimbex yesterday and his ABG this morning showed respiratory acidosis with hypercapnia and his respiratory rate was increased. We will obtain a repeat ABG this afternoon. This morning patient is hypernatremic, hyperkalemic and hyperchloremic. His potassium has been corrected with the management and will obtain repeat BMP tomorrow. His kidney functions have remained stable and we will await nephrology's input. No acute events reported overnight. This morning the time my examination patient sedated with propofol, Precedex and fentanyl and paralyzed with Nimbex. He is on assist control 500/24/16 0.80. 42: This morning patient is hypokalemic again and was given Kayexalate. Patient has hypernatremia and hyper chloremia and his renal function is slightly worse after receiving Lasix yesterday. His D-dimer remains greater than 10,000 and he is still on a paralytic. Patient is sedated on Precedex, fentanyl, pr opofol. Mechanical ventilation settings seven-point //28. [facility] has decided to continue paralytics for 48 more hours and will attempt proning the patient. Increased free water flushes 300 cc every 4 hours. Patient states has restarted his antibiotics cefepime and vancomycin and recultured. 01/31/21 Hyperkalemia, Treated 02/01/21 Hyperkalemia, Treated 02/02: Patient's kidney function continues to worsen and a stat BMP this morning shows BUN/creatinine 20/6.1 and he remains hypocalcemic and hypernatremic, hypokalemic and hypochloremic. Patient received 2 g of calcium gluconate and Kayexalate and his repeat potassium was 4.3 this afternoon. He remains antibiotic therapy and steroids. Nephrology has placed the patient on bicarb drip given metabolic acidosis and has decided to hold off hemodialysis till tomorrow.The time my examination patient is sedated on fentanyl, Precedex and on assist control 500/20/12/0.70. s/p paralytic. 02/03: Today patient's ABG shows respiratory acidosis however it is improving, hypernatremia, hyperchloremia, metabolic acidosis on BMP, worsening kidney function BUN/creatinine 130/9.2 with hyperphosphatemia. Patient received a Vas- Cath to his right IJ for initiation of dialysis. At the time of my examination patient remains sedated on fentanyl, propofol and Precedex with vasopressor support with Levophed at 2. 02/04: At the time of examination patient was on assist control tidal volume 500, rate 40, PEEP of 12, FiO2 85%. Patient had a T-max of 100.9 and infectious disease has stopped his vancomycin given negative MRSA. This afternoon patient respiked his temperature and was pancultured again. Patient was started on hemodialysis yesterday and will receive HD again today. Patient is sedated on Precedex, propofol, fentanyl and remains on Levophed. He is on assist control tidal volume 500, rate of 30, PEEP of 12, FiO2 of 85%. Patient still has some respiratory acidosis however his hypernatremia and hyperchloremia have improved and his metabolic acidosis has resolved. Patient will receive hemodialysis today 02/05: Patient continues to have low-grade fever temp this morning time examination he was on assist control tidal volume 500, and sedated on propofol/fentanyl/Precedex and is on Levophed. Hemodialysis per nephrology. Antibiotics per ID. Patient's blood culture from 02/04 grew gram-positive cocci in clusters in 1/2 bottles and he was started on vancomycin. 02/06: Patients ABG showed respiratory acidosis and the tracings were changed however a repeat ABG showed showed acidosis.[facility] will start a bicarb drip after giving 2 amps of bicarb push. Yesterday patient blood cultures grew gram- positive cocci and he was started on vancomycin. At the time my examination patient was on assist control tidal volume 550, rate 34, PEEP 16, FiO2 90% and sedated on fentanyl, Precedex, propofol elevated pressure support with Levophed. Bilateral lower extremity Doppler ultrasounds done yesterday showed no evidence of DVT/SVT. 02/07/2021; patient is still on the vent with PEEP of 16 and FiO2 of 90%, sedated with fentanyl Precedex and propofol. Patient still requiring Levophed. Patient was sedated yesterday and was given bicarb push. Blood culture grew gram-positive cocci in clusters and he is on vancomycin, will follow identifica tion. 02/08/2021;patient is still on the vent with PEEP of 16 and FiO2 of 90%, sedated with fentanyl Precedex and propofol. Patient still requiring Levophed. Patient was sedated yesterday and was given bicarb push. Blood culture grew gram- positive cocci in clusters and he is on vancomycin, will follow identification. Patient is currently on dialysis. Patient is anemic transfuse if hemoglobin is below 7. 4/12: This morning patient has slight hypokalemia, hypochorlemia, hyponatremia and metabolic alkalosis. [facility] will continue bicarb gtt given that the patient does not have HD access at this time. We will replete the potassium and recheck BMP in the AM. We will type and cross in anticipation of PRBC transfusion. This morning he is sedated on Ativan, fentayl, and precedex. Will obtain a t riglyceride level today in hopes to resume propofol. Patient is alkalotic and BMP however we will continue with bicarb drip per [facility] given that the patient does not have any access for hemodialysis. Anticipate replacing hemodialysis catheter tomorrow or Tuesday. The time my examination he is on AC TV 550, Rate 34, PeeP 16, FiO2 .65. 13: A.m. labs still pending, [facility] plans to replace HD catheter tomorrow as the patient is still febrile however his fever curve is trending down, remains on a bicarb drip and on vancomycin. Today at the time my examination patient was sedated on Precedex, Ativan and fentanyl and he is on assist control tidal 11/04/1951, rate 34, PEEP 16, FiO2 65%. Overnight patient was hypotensive and received 1 dose of midodrine Hospitalist Physical - Constitutional Vitals: Temp Pulse Resp BP Pulse Ox 99.8 F H 100 H 35 H 144/64 92 02/10/21 12:00 02/10/21 14:00 02/10/21 14:00 02/10/21 14:00 02/10/21 14:00 General appearance: Present: no acute distress, well-nourished, other (Sedated on mechanical ventilation) - EENT Eyes: Present: PERRL ENT: poor dentition - Neck Neck: Present: normal ROM - Respiratory Respiratory effort: normal Respiratory: bilateral: diminished - Cardiovascular Rhythm: regular Heart Sounds: Present: S1 & S2. Absent: systolic murmur, diastolic murmur - Extremities Extremities: no ischemia, pulses intact, pulses symmetrical, normal temperature, normal color Peripheral Pulses: within normal limits - Abdominal General gastrointestinal: soft, non-tender, normal bowel sounds - Integumentary Integumentary: Present: warm, dry - Psychiatric Psychiatric: other (sedated) - Neurologic Neurologic: other (sedated) - Allied Health Allied health notes reviewed: nursing, RT, social work HEART Score - HEART Score Risk factors: 1-2 risk factors Troponin: < normal limit - Critical Actions Critical Actions: 0-3 pts:0.9-1.7%risk of adverse cardiac event.Candidate for discharge Results - Labs CBC & Chem 7: 02/10/21 14:08 02/09/21 05:10 Labs: Laboratory Last Values WBC 12.5 K/mm3 (4.5-11.0) H 02/10/21 14:08 RBC 2.14 M/mm3 (3.65-5.03) L 02/10/21 14:08 Hgb 6.6 gm/dl (11.8-15.2) L 02/10/21 14:08 Hct 20.2 % (35.5-45.6) L 02/10/21 14:08 MCV 94 fl (84-94) 02/10/21 14:08 MCH 31 pg (28-32) 02/10/21 14:08 MCHC 33 % (32-34) 02/10/21 14:08 RDW 13.6 % (13.2-15.2) 02/10/21 14:08 Plt Count 243 K/mm3 (140-440) 02/10/21 14:08 Lymph % (Auto) 8.9 % (13.4-35.0) L 02/07/21 04:00 [place] % (Auto) 3.1 % (0.0-7.3) 02/07/21 04:00 Eos % (Auto) 0.9 % (0.0-4.3) 02/07/21 04:00 Baso % (Auto) 0.8 % (0.0-1.8) 02/07/21 04:00 Lymph # (Auto) 1.1 K/mm3 (1.2-5.4) L 02/07/21 04:00 [place] # (Auto) 0.4 K/mm3 (0.0-0.8) 02/07/21 04:00 Eos # (Auto) 0.1 K/mm3 (0.0-0.4) 02/07/21 04:00 Baso # (Auto) 0.1 K/mm3 (0.0-0.1) 02/07/21 04:00 Add Manual Diff Complete 02/09/21 05:10 Total Counted 100 02/09/21 05:10 Seg Neutrophils % 86.3 % (40.0-70.0) H 02/07/21 04:00 Seg Neuts % (Manual) 82.0 % (40.0-70.0) H 02/09/21 05:10 Band Neutrophils % 4.0 % 02/09/21 05:10 Lymphocytes % (Manual) 9.0 % (13.4-35.0) L 02/09/21 05:10 Reactive Lymphs % (Man) 1.0 % 01/27/21 05:29 Monocytes % (Manual) 2.0 % (0.0-7.3) 02/09/21 05:10 Eosinophils % (Manual) 1.0 % (0.0-4.3) 02/09/21 05:10 Basophils % (Manual) 1.0 % (0.0-1.8) 02/06/21 Unknown Metamyelocytes % 2.0 % 02/09/21 05:10 Nucleated RBC % 1.0 % (0.0-0.9) H 02/09/21 05:10 Seg Neutrophils # 10.3 K/mm3 (1.8-7.7) H 02/07/21 04:00 Seg Neutrophils # Man 8.9 K/mm3 (1.8-7.7) H 02/09/21 05:10 Band Neutrophils # 0.4 K/mm3 02/09/21 05:10 Lymphocytes # (Manual) 1.0 K/mm3 (1.2-5.4) L 02/09/21 05:10 Abs React Lymphs (Man) 0.0 K/mm3 02/09/21 05:10 Monocytes # (Manual) 0.2 K/mm3 (0.0-0.8) 02/09/21 05:10 Eosinophils # (Manual) 0.1 K/mm3 (0.0-0.4) 02/09/21 05:10 Basophils # (Manual) 0.0 K/mm3 (0.0-0.1) 02/09/21 05:10 Metamyelocytes # 0.2 K/mm3 02/09/21 05:10 Myelocytes # 0.0 K/mm3 02/09/21 05:10 Promyelocytes # 0.0 K/mm3 02/09/21 05:10 Blast Cells # 0.0 K/mm3 02/09/21 05:10 WBC Morphology Not Reportable 02/09/21 05:10 Hypersegmented Neuts Not Reportable 02/09/21 05:10 Hyposegmented Neuts Not Reportable 02/09/21 05:10 Hypogranular Neuts Not Reportable 02/09/21 05:10 Smudge Cells Not Reportable 02/09/21 05:10 Toxic Granulation Not Reportable 02/09/21 05:10 Toxic Vacuolation Not Reportable 02/09/21 05:10 Dohle Bodies Not Reportable 02/09/21 05:10 Pelger-Huet Anomaly Not Reportable 02/09/21 05:10 Fátima Rods Not Reportable 02/09/21 05:10 Platelet Estimate Consistent w auto 02/09/21 05:10 Clumped Platelets Not Reportable 02/09/21 05:10 Plt Clumps, EDTA Not Reportable 02/09/21 05:10 Large Platelets Few 02/09/21 05:10 Giant Platelets Not Reportable 02/09/21 05:10 Platelet Satelliting Not Reportable 02/09/21 05:10 Plt Morphology Comment Not Reportable 02/09/21 05:10 RBC Morphology Not Reportable 02/09/21 05:10 Dimorphic RBCs Not Reportable 02/09/21 05:10 Polychromasia Few 02/09/21 05:10 Hypochromasia Not Reportable 02/09/21 05:10 Poikilocytosis Not Reportable 02/09/21 05:10 Anisocytosis 1+ 02/09/21 05:10 Microcytosis Not Reportable 02/09/21 05:10 Macrocytosis Not Reportable 02/09/21 05:10 Spherocytes Not Reportable 02/09/21 05:10 Pappenheimer Bodies Not Reportable 02/09/21 05:10 Sickle Cells Not Reportable 02/09/21 05:10 Target Cells Not Reportable 02/09/21 05:10 Tear Drop Cells Not Reportable 02/09/21 05:10 Ovalocytes Not Reportable 02/09/21 05:10 Helmet Cells Not Reportable 02/09/21 05:10 [place] Bodies Not Reportable 02/09/21 05:10 [place] Rings Not Reportable 02/09/21 05:10 [place] Cells Not Reportable 02/09/21 05:10 Bite Cells Not Reportable 02/09/21 05:10 Crenated Cell Not Reportable 02/09/21 05:10 Elliptocytes Not Reportable 02/09/21 05:10 Acanthocytes (Spur) Not Reportable 02/09/21 05:10 Rouleaux Not Reportable 02/09/21 05:10 Hemoglobin C Crystals Not Reportable 02/09/21 05:10 Schistocytes Not Reportable 02/09/21 05:10 Malaria parasites Not Reportable 02/09/21 05:10 Aquiles Bodies Not Reportable 02/09/21 05:10 Hem Pathologist Commnt No 02/09/21 05:10 D-Dimer > 49989 ng/mlDDU (0-234) H 01/30/21 04:00 ABG pH 7.339 (7.320-7.450) 02/10/21 04:00 POC ABG pCO2 65.8 mmHg (32.0-48.0) H 02/10/21 04:00 ABG pCO2 82.8 mm Hg 02/06/21 17:00 POC ABG pO2 68.0 mmHg (83-108) L 02/10/21 04:00 ABG pO2 109.8 mm Hg (80.0-90.0) H 02/06/21 17:00 POC ABG HCO3 34.6 02/10/21 04:00 ABG HCO3 28.7 mmol/L (20.0-26.0) H 02/06/21 17:00 ABG O2 Saturation 91.7 (0-100) 02/10/21 04:00 ABG O2 Content 20.1 (0.0-44) 02/06/21 17:00 POC ABG Base Excess 7.6 02/10/21 04:00 ABG Base Excess -2.5 mmol/L (-2.0-3.0) L 02/06/21 17:00 ABG Hemoglobin 8.3 (12.0-17.5) L 02/10/21 04:00 ABG Oxyhemoglobin 92.2 (94-98) L 02/09/21 03:21 ABG Carboxyhemoglobin 1.5 % (0.0-5.0) 02/06/21 17:00 ABG Methemoglobin 0 (0.0-1.5) 02/09/21 03:21 ABG Sodium 132.4 mmol/L (136.0-145.0) L 02/10/21 04:00 ABG Potassium 2.9 mmol/L (3.40-4.50) L 02/10/21 04:00 ABG Chloride 92.0 mmol/L (98-107) L 02/10/21 04:00 ABG Glucose 174 mg/dL (65-95) H 02/10/21 04:00 Oxyhemoglobin 94.5 % (95.0-99.0) L 02/06/21 17:00 Carboxyhemoglobin 1.5 (0.5-1.5) 02/09/21 03:21 FiO2 90 % 02/06/21 17:00 FiO2 % 65 02/10/21 04:00 Sodium 135 mmol/L (137-145) L 02/09/21 05:10 Potassium 3.2 mmol/L (3.6-5.0) L 02/09/21 05:10 Chloride 91.0 mmol/L (98-107) L 02/09/21 05:10 Carbon Dioxide 32 mmol/L (22-30) H 02/09/21 05:10 Anion Gap 15 mmol/L 02/09/21 05:10 BUN 54 mg/dL (9-20) H 02/09/21 05:10 Creatinine 6.6 mg/dL (0.8-1.3) H 02/09/21 05:10 Estimated GFR 10 ml/min 02/09/21 05:10 BUN/Creatinine Ratio 8 % 02/09/21 05:10 Glucose 163 mg/dL (75-100) H 02/09/21 05:10 POC Glucose 147 mg/dL (70-105) H 02/10/21 11:29 Hemoglobin A1c 6.3 % (4-6) H 02/02/21 16:00 Lactic Acid 1.90 mmol/L (0.7-2.0) 01/24/21 14:38 Calcium 6.2 mg/dL (8.4-10.2) L 02/09/21 05:10 Phosphorus 3.60 mg/dL (2.5-4.5) D 02/08/21 06:00 Magnesium 2.20 mg/dL (1.7-2.3) 02/04/21 04:45 Ferritin 763.9 ng/mL (30.0-300.0) H 01/30/21 04:00 Total Bilirubin 1.50 mg/dL (0.1-1.2) H 01/26/21 05:47 AST 37 units/L (5-40) 01/26/21 05:47 ALT 29 units/L (7-56) 01/26/21 05:47 Alkaline Phosphatase 70 units/L (35-129) 01/26/21 05:47 Lactate Dehydrogenase 424 units/L (91-180) H 01/30/21 04:00 C-Reactive Protein 23.90 mg/dL (0.00-1.30) H 01/30/21 04:00 Total Protein 7.2 g/dL (6.3-8.2) 01/26/21 05:47 Albumin 2.2 g/dL (3.9-5) L 01/26/21 05:47 Albumin/Globulin Ratio 0.4 % 01/26/21 05:47 Triglycerides 250 mg/dL (2-149) H 02/09/21 13:32 Procalcitonin 0.92 ng/mL (<0.15) 01/22/21 22:57 Arterial Blood Glucose 174 mg/dL (65-95) H 02/10/21 04:00 Arterial Blood Ionized Calcium 3.4 mg/dL (4.6-5.3) L 02/10/21 04:00 Urine Color Nehal (Yellow) 01/22/21 22:39 Urine Turbidity Cloudy (Clear) 01/22/21 22:39 Urine pH 5.0 (5.0-7.0) 01/22/21 22:39 Ur Specific [place] 1.017 (1.003-1.030) 01/22/21 22:39 Urine Protein 100 mg/dl mg/dL (Negative) 01/22/21 22:39 Urine Glucose (UA) Neg mg/dL (Negative) 01/22/21 22:39 Urine Ketones Neg mg/dL (Negative) 01/22/21 22:39 Urine Blood Mod (Negative) 01/22/21 22:39 Urine Nitrite Neg (Negative) 01/22/21 22:39 Urine Bilirubin Neg (Negative) 01/22/21 22:39 Urine Urobilinogen 2.0 mg/dL (<2.0) 01/22/21 22:39 Ur Leukocyte Esterase Mod (Negative) 01/22/21 22:39 Urine WBC (Auto) < 1.0 /HPF (0.0-6.0) 01/22/21 22:39 Urine RBC (Auto) < 1.0 /HPF (0.0-6.0) 01/22/21 22:39 U Epithel Cells (Auto) < 1.0 /HPF (0-13.0) 01/22/21 22:39 Urine Osmolality 416 Mosm/kg 01/30/21 12:15 Urine Total Volume 2300 ml 01/30/21 12:00 Urine Creatinine 53.0 mg/dL (0.1-20.0) H 01/30/21 12:00 Ur Creatinine 24 Hour 1.2 (0.8-2.8) 01/30/21 12:00 Urine Sodium 28 mmol/L 01/22/21 22:39 Nasal Screen MRSA (PCR) Negative (Negative) 02/02/21 13:20 Random Vancomycin 13.7 ug/mL (0-40.0) 02/07/21 10:40 Coronavirus (PCR) Positive (Negative) A 01/23/21 08:41 Hepatitis A IgM Ab Non-reactive (NonReactive) 02/03/21 Unknown Hep Bs Antigen Non-reactive (Negative) 02/03/21 Unknown Hep B Core IgM Ab Non-reactive (NonReactive) 02/03/21 Unknown Hepatitis C Antibody Non-reactive (NonReactive) 02/03/21 Unknown Blood Type B POSITIVE 02/09/21 13:40 Antibody Screen Negative 02/09/21 13:40 Microbiology: Microbiology 02/08/21 15:12 Peripheral/Venous Blood Culture - Preliminary NO GROWTH AFTER 24 HOURS 02/08/21 15:12 Peripheral/Venous Blood Culture - Preliminary NO GROWTH AFTER 24 HOURS Black/IV: Voiding Method Indwelling Catheter Active Medications - Current Medications Current Medications: Generic Name Dose Route Start Last Admin Trade Name Freq PRN Reason Stop Dose Admin Acetaminophen 650 mg 01/23/21 02:25 Acetaminophen 650 Mg Rect Supp NV Q4H PRN Pain, Mild (1-3) Acetaminophen 650 mg 01/24/21 12:58 02/10/21 06:14 Acetaminophen 325 Mg/10.15 Ml Oral Liqd Unit Dose FEEDTUBE 650 mg Q6H PRN Administration Pain, Mild (1-3) Lipase/Protease/Amylase 1 each 01/26/21 14:25 Lipase 10,500/Protease 25,000/Amylase 43,750 (Units) Dr Cap FEEDTUBE PRN PRN For Clogged Feeding Tube Dextrose 50 ml 01/27/21 07:24 Dextrose 50% In Water (25gm) 50 Ml Syringe IV Q30MIN PRN Hypoglycemia Protocol Enoxaparin Sodium 120 mg 01/26/21 11:00 02/10/21 09:11 Enoxaparin 120 Mg/0.8 Ml Inj SUB-Q 120 mg Q24HR CECE Administration Famotidine 20 mg 02/10/21 10:00 02/10/21 09:10 Famotidine 20 Mg Tab PO 20 mg DAILY CECE Administration Fentanyl 50 mcg 01/22/21 22:39 02/10/21 13:46 Fentanyl 100 Mcg/2 Ml Inj IV 50 mcg Q10MIN PRN Administration ANALGESIA Hydrophilic Ointment 1 applic 01/22/21 22:39 Lip Therapy Vaseline TP Q2HR PRN Dry Lips Fentanyl Citrate 2,000 mcg in 100 mls @ 6.124 mls/hr 01/22/21 23:00 02/10/21 11:18 Fentanyl Drip Premix IV 2 mcg/kg/hr TITR CECE 12.247 mls/hr Administration Protocol 1 MCG/KG/HR Propofol 1,000 mg in 100 mls @ 3.674 mls/hr 01/22/21 23:45 02/06/21 18:37 Diprivan 10 Mg/Ml IV 0 mcg/kg/min TITR CECE 0 mls/hr Titration Protocol 5 MCG/KG/MIN Norepinephrine 4 mg in 250 mls @ 7.5 mls/hr 01/28/21 14:00 02/08/21 06:08 Levophed Drip 4 Mg/Ns 250 Ml IV 0 mcg/min TITR CECE 0 mls/hr Titration Protocol 2 MCG/MIN Dexmedetomidine HCl 1,000 mcg/ 260 mls @ 6.368 mls/hr 01/30/21 20:00 02/10/21 12:19 Sodium Chloride IV 1.4 mcg/kg/hr TITRATE CECE 44.579 mls/hr Administration Protocol 0.2 MCG/KG/HR Sodium Bicarbonate 150 meq/ 1,150 mls @ 100 mls/hr 02/06/21 11:30 02/10/21 13:30 Dextrose IV 100 mls/hr DIRECT CECE Administration Sodium Chloride 100 mls @ 999 mls/hr 02/06/21 13:30 Nacl 0.9% IV [place] PRN Hypotension Lorazepam 100 mg/ Sodium 100 mls @ 1 mls/hr 02/06/21 19:00 02/10/21 01:00 Chloride/ Miscellaneous IV 1 mg/hr Information TITR CECE 1 mls/hr Titration Protocol 1 MG/HR Multi-Ingred Cream/Lotion/Oil/Oint 1 applic 01/22/21 22:39 02/01/21 09:33 Mineral Oil/Petrolatum, White Ophth Oint 3.5 Gm OU 1 applic Q4HR PRN Administration Dry Eye(s) Ondansetron HCl 4 mg 01/23/21 02:17 Ondansetron 4 Mg/2 Ml Inj IV Q8H PRN Nausea And Vomiting Simple Syrup 15 ml 01/26/21 14:25 Simple Syrup 15 Ml FEEDTUBE PRN PRN Hypoglycemia Simple Syrup 30 ml 01/26/21 14:25 Simple Syrup 15 Ml FEEDTUBE PRN PRN Hypoglycemia Sodium Bicarbonate 325 mg 01/26/21 14:25 Sodium Bicarbonate 325 Mg Tab FEEDTUBE PRN PRN For Clogged Feeding Tube Nutrition/Malnutrition Assess - Dietary Evaluation Nutrition/Malnutrition Findings: Nutrition Notes Start: 01/26/21 13 :59 Freq: Status: Active Protocol: Document 02/10/21 13:44 CW (Rec: 02/10/21 13:57 CW [id number]) Nutrition Notes Initial or Follow up Reassessment Current Diagnosis Acute Kidney Injury,Diabetes, Sepsis,Hypertension, Respiratory Failure, Hyperlipidemia Other Pertinent Diagnosis on HD, COVID-19 (+), bilat pneu Current Diet TF - Nepro at 36 ml/hr Labs/Tests 02/09/2021 Na 135 BUN 54 Cr 6.6 BG 163 Pertinent Medications NaHCO3 150 mEq in D at 100 ml/ hr Height 5 ft 8 in Weight 147.6 kg [place] Body Weight (kg) 70.00 BMI 49.4 Weight change and time frame wt increase likely r/t to HD need Weight Status Morbidly Obese Subjective/Other Information F/U for proning, propofol, vent status, and HD. Last HD was on 02/07/2021. Pt has not received propofol today but per MD pt may recieve propofol in near future. Per RN pt is tolerating TF well. TF running at goal of 36 ml/hr. Will adjust flush d/t hyponatremia. . EUGENIO Null aware of change. Percent of energy/protein needs met: 88%/61% Burn Absent Trauma Absent GI Symptoms None Difficulty In Swallowing Skin Integrity/Comment Intact Current % PO Negligible Minimum of two criteria No physical signs of malnutrition #1 Nutrition Diagnosis Inadequate oral intake Diagnosis Progress(for reassessment Continues documentation) Is patient on ventilator? Yes Is Patient Ambulatory and/or Out of Bed No REE-([facility]-confined to bed) 2704.776 Kcal/Kg value to use for calculation 12 Approximate Energy Requirements Using 1771 kcal/Kg Calculation Used for Recommendations Kcal/kg Additional Notes Pro needs >1.2g/kg adjBW: > 115g/day for HD needs Fluid needs per MD Nutrition Intervention Change Diet Order: Resume Nepro at 36 ml, decrease flush to 200 ml q4h for hyponatremia Nutrition Support: If running continuous feed x 24 hrs without proning: Nepro at 36 ml/hr with a free water flush 200 ml q4h. If in prone position x 12/hr day: While in prone position: Nepro at 20 ml/hr with free water flush of 100 ml q4h or per MD order. While in supine position: Nepro at 65 ml/hr with a free water flush of 200 ml q4h or per MD order. Kcal 1,555 Protein (gm) 70 Fluid (mL) 628 Goal #1 TF tolerance Goal #2 TF to meet at least 75% energy and pro needs Anticipated Discharge Needs: unable to determine at this time Follow-Up By: 02/13/21 Additional Comments F/U for TF tolerance, vent status, propofol <[place] HOANG R - Last Filed: 02/10/21 16:25> Assessment and Plan Assessment and plan: I saw and evaluated the patient. I agree with the findings and the plan of care as documented in the Nurse Practitioner's~note, with the following corrections and additions. Hemoglobin 6.6 today -ordered for 1 unit of packed RBC, monitor H&H and follow patient clinically for any active bleeding Potassium 2.9- give 30 mcq of KCl with tube feeding Hospitalist Physical - Constitutional Vitals: Temp Pulse Resp BP Pulse Ox 99.8 F H 101 H 34 H 134/67 93 02/10/21 12:00 02/10/21 15:15 02/10/21 15:15 02/10/21 15:15 02/10/21 15:15 Results - Labs CBC & Chem 7: 02/10/21 14:08 02/10/21 14:08 Labs: Laboratory Last Values WBC 12.5 K/mm3 (4.5-11.0) H 02/10/21 14:08 RBC 2.14 M/mm3 (3.65-5.03) L 02/10/21 14:08 Hgb 6.6 gm/dl (11.8-15.2) L 02/10/21 14:08 Hct 20.2 % (35.5-45.6) L 02/10/21 14:08 MCV 94 fl (84-94) 02/10/21 14:08 MCH 31 pg (28-32) 02/10/21 14:08 MCHC 33 % (32-34) 02/10/21 14:08 RDW 13.6 % (13.2-15.2) 02/10/21 14:08 Plt Count 243 K/mm3 (140-440) 02/10/21 14:08 Lymph % (Auto) 8.9 % (13.4-35.0) L 02/07/21 04:00 [place] % (Auto) 3.1 % (0.0-7.3) 02/07/21 04:00 Eos % (Auto) 0.9 % (0.0-4.3) 02/07/21 04:00 Baso % (Auto) 0.8 % (0.0-1.8) 02/07/21 04:00 Lymph # (Auto) 1.1 K/mm3 (1.2-5.4) L 02/07/21 04:00 [place] # (Auto) 0.4 K/mm3 (0.0-0.8) 02/07/21 04:00 Eos # (Auto) 0.1 K/mm3 (0.0-0.4) 02/07/21 04:00 Baso # (Auto) 0.1 K/mm3 (0.0-0.1) 02/07/21 04:00 Add Manual Diff Complete 02/09/21 05:10 Total Counted 100 02/09/21 05:10 Seg Neutrophils % 86.3 % (40.0-70.0) H 02/07/21 04:00 Seg Neuts % (Manual) 82.0 % (40.0-70.0) H 02/09/21 05:10 Band Neutrophils % 4.0 % 02/09/21 05:10 Lymphocytes % (Manual) 9.0 % (13.4-35.0) L 02/09/21 05:10 Reactive Lymphs % (Man) 1.0 % 01/27/21 05:29 Monocytes % (Manual) 2.0 % (0.0-7.3) 02/09/21 05:10 Eosinophils % (Manual) 1.0 % (0.0-4.3) 02/09/21 05:10 Basophils % (Manual) 1.0 % (0.0-1.8) 02/06/21 Unknown Metamyelocytes % 2.0 % 02/09/21 05:10 Nucleated RBC % 1.0 % (0.0-0.9) H 02/09/21 05:10 Seg Neutrophils # 10.3 K/mm3 (1.8-7.7) H 02/07/21 04:00 Seg Neutrophils # Man 8.9 K/mm3 (1.8-7.7) H 02/09/21 05:10 Band Neutrophils # 0.4 K/mm3 02/09/21 05:10 Lymphocytes # (Manual) 1.0 K/mm3 (1.2-5.4) L 02/09/21 05:10 Abs React Lymphs (Man) 0.0 K/mm3 02/09/21 05:10 Monocytes # (Manual) 0.2 K/mm3 (0.0-0.8) 02/09/21 05:10 Eosinophils # (Manual) 0.1 K/mm3 (0.0-0.4) 02/09/21 05:10 Basophils # (Manual) 0.0 K/mm3 (0.0-0.1) 02/09/21 05:10 Metamyelocytes # 0.2 K/mm3 02/09/21 05:10 Myelocytes # 0.0 K/mm3 02/09/21 05:10 Promyelocytes # 0.0 K/mm3 02/09/21 05:10 Blast Cells # 0.0 K/mm3 02/09/21 05:10 WBC Morphology Not Reportable 02/09/21 05:10 Hypersegmented Neuts Not Reportable 02/09/21 05:10 Hyposegmented Neuts Not Reportable 02/09/21 05:10 Hypogranular Neuts Not Reportable 02/09/21 05:10 Smudge Cells Not Reportable 02/09/21 05:10 Toxic Granulation Not Reportable 02/09/21 05:10 Toxic Vacuolation Not Reportable 02/09/21 05:10 Dohle Bodies Not Reportable 02/09/21 05:10 Pelger-Huet Anomaly Not Reportable 02/09/21 05:10 Fátima Rods Not Reportable 02/09/21 05:10 Platelet Estimate Consistent w auto 02/09/21 05:10 Clumped Platelets Not Reportable 02/09/21 05:10 Plt Clumps, EDTA Not Reportable 02/09/21 05:10 Large Platelets Few 02/09/21 05:10 Giant Platelets Not Reportable 02/09/21 05:10 Platelet Satelliting Not Reportable 02/09/21 05:10 Plt Morphology Comment Not Reportable 02/09/21 05:10 RBC Morphology Not Reportable 02/09/21 05:10 Dimorphic RBCs Not Reportable 02/09/21 05:10 Polychromasia Few 02/09/21 05:10 Hypochromasia Not Reportable 02/09/21 05:10 Poikilocytosis Not Reportable 02/09/21 05:10 Anisocytosis 1+ 02/09/21 05:10 Microcytosis Not Reportable 02/09/21 05:10 Macrocytosis Not Reportable 02/09/21 05:10 Spherocytes Not Reportable 02/09/21 05:10 Pappenheimer Bodies Not Reportable 02/09/21 05:10 Sickle Cells Not Reportable 02/09/21 05:10 Target Cells Not Reportable 02/09/21 05:10 Tear Drop Cells Not Reportable 02/09/21 05:10 Ovalocytes Not Reportable 02/09/21 05:10 Helmet Cells Not Reportable 02/09/21 05:10 [place] Bodies Not Reportable 02/09/21 05:10 [place] Rings Not Reportable 02/09/21 05:10 [place] Cells Not Reportable 02/09/21 05:10 Bite Cells Not Reportable 02/09/21 05:10 Crenated Cell Not Reportable 02/09/21 05:10 Elliptocytes Not Reportable 02/09/21 05:10 Acanthocytes (Spur) Not Reportable 02/09/21 05:10 Rouleaux Not Reportable 02/09/21 05:10 Hemoglobin C Crystals Not Reportable 02/09/21 05:10 Schistocytes Not Reportable 02/09/21 05:10 Malaria parasites Not Reportable 02/09/21 05:10 Aquiles Bodies Not Reportable 02/09/21 05:10 Hem Pathologist Commnt No 02/09/21 05:10 D-Dimer > 13493 ng/mlDDU (0-234) H 01/30/21 04:00 ABG pH 7.339 (7.320-7.450) 02/10/21 04:00 POC ABG pCO2 65.8 mmHg (32.0-48.0) H 02/10/21 04:00 ABG pCO2 82.8 mm Hg 02/06/21 17:00 POC ABG pO2 68.0 mmHg (83-108) L 02/10/21 04:00 ABG pO2 109.8 mm Hg (80.0-90.0) H 02/06/21 17:00 POC ABG HCO3 34.6 02/10/21 04:00 ABG HCO3 28.7 mmol/L (20.0-26.0) H 02/06/21 17:00 ABG O2 Saturation 91.7 (0-100) 02/10/21 04:00 ABG O2 Content 20.1 (0.0-44) 02/06/21 17:00 POC ABG Base Excess 7.6 02/10/21 04:00 ABG Base Excess -2.5 mmol/L (-2.0-3.0) L 02/06/21 17:00 ABG Hemoglobin 8.3 (12.0-17.5) L 02/10/21 04:00 ABG Oxyhemoglobin 92.2 (94-98) L 02/09/21 03:21 ABG Carboxyhemoglobin 1.5 % (0.0-5.0) 02/06/21 17:00 ABG Methemoglobin 0 (0.0-1.5) 02/09/21 03:21 ABG Sodium 132.4 mmol/L (136.0-145.0) L 02/10/21 04:00 ABG Potassium 2.9 mmol/L (3.40-4.50) L 02/10/21 04:00 ABG Chloride 92.0 mmol/L (98-107) L 02/10/21 04:00 ABG Glucose 174 mg/dL (65-95) H 02/10/21 04:00 Oxyhemoglobin 94.5 % (95.0-99.0) L 02/06/21 17:00 Carboxyhemoglobin 1.5 (0.5-1.5) 02/09/21 03:21 FiO2 90 % 02/06/21 17:00 FiO2 % 65 02/10/21 04:00 Sodium 136 mmol/L (137-145) L 02/10/21 14:08 Potassium 2.9 mmol/L (3.6-5.0) L* 02/10/21 14:08 Chloride 90.2 mmol/L (98-107) L 02/10/21 14:08 Carbon Dioxide 33 mmol/L (22-30) H 02/10/21 14:08 Anion Gap 16 mmol/L 02/10/21 14:08 BUN 42 mg/dL (9-20) H 02/10/21 14:08 Creatinine 7.5 mg/dL (0.8-1.3) H 02/10/21 14:08 Estimated GFR 9 ml/min 02/10/21 14:08 BUN/Creatinine Ratio 6 % 02/10/21 14:08 Glucose 155 mg/dL (75-100) H 02/10/21 14:08 POC Glucose 147 mg/dL (70-105) H 02/10/21 11:29 Hemoglobin A1c 6.3 % (4-6) H 02/02/21 16:00 Lactic Acid 1.90 mmol/L (0.7-2.0) 01/24/21 14:38 Calcium 6.1 mg/dL (8.4-10.2) L 02/10/21 14:08 Phosphorus 3.60 mg/dL (2.5-4.5) D 02/08/21 06:00 Magnesium 2.20 mg/dL (1.7-2.3) 02/04/21 04:45 Ferritin 763.9 ng/mL (30.0-300.0) H 01/30/21 04:00 Total Bilirubin 1.50 mg/dL (0.1-1.2) H 01/26/21 05:47 AST 37 units/L (5-40) 01/26/21 05:47 ALT 29 units/L (7-56) 01/26/21 05:47 Alkaline Phosphatase 70 units/L (35-129) 01/26/21 05:47 Lactate Dehydrogenase 424 units/L (91-180) H 01/30/21 04:00 C-Reactive Protein 23.90 mg/dL (0.00-1.30) H 01/30/21 04:00 Total Protein 7.2 g/dL (6.3-8.2) 01/26/21 05:47 Albumin 2.2 g/dL (3.9-5) L 01/26/21 05:47 Albumin/Globulin Ratio 0.4 % 01/26/21 05:47 Triglycerides 250 mg/dL (2-149) H 02/09/21 13:32 Procalcitonin 0.92 ng/mL (<0.15) 01/22/21 22:57 Arterial Blood Glucose 174 mg/dL (65-95) H 02/10/21 04:00 Arterial Blood Ionized Calcium 3.4 mg/dL (4.6-5.3) L 02/10/21 04:00 Urine Color Nehal (Yellow) 01/22/21 22:39 Urine Turbidity Cloudy (Clear) 01/22/21 22:39 Urine pH 5.0 (5.0-7.0) 01/22/21 22:39 Ur Specific [place] 1.017 (1.003-1.030) 01/22/21 22:39 Urine Protein 100 mg/dl mg/dL (Negative) 01/22/21 22:39 Urine Glucose (UA) Neg mg/dL (Negative) 01/22/21 22:39 Urine Ketones Neg mg/dL (Negative) 01/22/21 22:39 Urine Blood Mod (Negative) 01/22/21 22:39 Urine Nitrite Neg (Negative) 01/22/21 22:39 Urine Bilirubin Neg (Negative) 01/22/21 22:39 Urine Urobilinogen 2.0 mg/dL (<2.0) 01/22/21 22:39 Ur Leukocyte Esterase Mod (Negative) 01/22/21 22:39 Urine WBC (Auto) < 1.0 /HPF (0.0-6.0) 01/22/21 22:39 Urine RBC (Auto) < 1.0 /HPF (0.0-6.0) 01/22/21 22:39 U Epithel Cells (Auto) < 1.0 /HPF (0-13.0) 01/22/21 22:39 Urine Osmolality 416 Mosm/kg 01/30/21 12:15 Urine Total Volume 2300 ml 01/30/21 12:00 Urine Creatinine 53.0 mg/dL (0.1-20.0) H 01/30/21 12:00 Ur Creatinine 24 Hour 1.2 (0.8-2.8) 01/30/21 12:00 Urine Sodium 28 mmol/L 01/22/21 22:39 Nasal Screen MRSA (PCR) Negative (Negative) 02/02/21 13:20 Random Vancomycin 13.7 ug/mL (0-40.0) 02/07/21 10:40 Coronavirus (PCR) Positive (Negative) A 01/23/21 08:41 Hepatitis A IgM Ab Non-reactive (NonReactive) 02/03/21 Unknown Hep Bs Antigen Non-reactive (Negative) 02/03/21 Unknown Hep B Core IgM Ab Non-reactive (NonReactive) 02/03/21 Unknown Hepatitis C Antibody Non-reactive (NonReactive) 02/03/21 Unknown Blood Type B POSITIVE 02/09/21 13:40 Antibody Screen Negative 02/09/21 13:40 Crossmatch See Detail 02/09/21 13:40 Microbiology: Microbiology 02/08/21 15:12 Peripheral/Venous Blood Culture - Preliminary NO GROWTH AFTER 24 HOURS 02/08/21 15:12 Peripheral/Venous Blood Culture - Preliminary NO GROWTH AFTER 24 HOURS Black/IV: Voiding Method Indwelling Catheter Active Medications - Current Medications Current Medications: Generic Name Dose Route Start Last Admin Trade Name Freq PRN Reason Stop Dose Admin Acetaminophen 650 mg 01/23/21 02:25 Acetaminophen 650 Mg Rect Supp NV Q4H PRN Pain, Mild (1-3) Acetaminophen 650 mg 01/24/21 12:58 02/10/21 06:14 Acetaminophen 325 Mg/10.15 Ml Oral Liqd Unit Dose FEEDTUBE 650 mg Q6H PRN Administration Pain, Mild (1-3) Lipase/Protease/Amylase 1 each 01/26/21 14:25 Lipase 10,500/Protease 25,000/Amylase 43,750 (Units) Dr Cap FEEDTUBE PRN PRN For Clogged Feeding Tube Dextrose 50 ml 01/27/21 07:24 Dextrose 50% In Water (25gm) 50 Ml Syringe IV Q30MIN PRN Hypoglycemia Protocol Enoxaparin Sodium 120 mg 01/26/21 11:00 02/10/21 09:11 Enoxaparin 120 Mg/0.8 Ml Inj SUB-Q 120 mg Q24HR CECE Administration Famotidine 20 mg 02/10/21 10:00 02/10/21 09:10 Famotidine 20 Mg Tab PO 20 mg DAILY CECE Administration Fentanyl 50 mcg 01/22/21 22:39 02/10/21 13:46 Fentanyl 100 Mcg/2 Ml Inj IV 50 mcg Q10MIN PRN Administration ANALGESIA Hydrophilic Ointment 1 applic 01/22/21 22:39 Lip Therapy Vaseline TP Q2HR PRN Dry Lips Fentanyl Citrate 2,000 mcg in 100 mls @ 6.124 mls/hr 01/22/21 23:00 02/10/21 11:18 Fentanyl Drip Premix IV 2 mcg/kg/hr TITR CECE 12.247 mls/hr Administration Protocol 1 MCG/KG/HR Propofol 1,000 mg in 100 mls @ 3.674 mls/hr 01/22/21 23:45 02/06/21 18:37 Diprivan 10 Mg/Ml IV 0 mcg/kg/min TITR CECE 0 mls/hr Titration Protocol 5 MCG/KG/MIN Norepinephrine 4 mg in 250 mls @ 7.5 mls/hr 01/28/21 14:00 02/08/21 06:08 Levophed Drip 4 Mg/Ns 250 Ml IV 0 mcg/min TITR CECE 0 mls/hr Titration Protocol 2 MCG/MIN Dexmedetomidine HCl 1,000 mcg/ 260 mls @ 6.368 mls/hr 01/30/21 20:00 02/10/21 12:19 Sodium Chloride IV 1.4 mcg/kg/hr TITRATE CECE 44.579 mls/hr Administration Protocol 0.2 MCG/KG/HR Sodium Bicarbonate 150 meq/ 1,150 mls @ 100 mls/hr 02/06/21 11:30 02/10/21 13:30 Dextrose IV 100 mls/hr DIRECT CECE Administration Sodium Chloride 100 mls @ 999 mls/hr 02/06/21 13:30 Nacl 0.9% IV SAGRARIO PRN Hypotension Lorazepam 100 mg/ Sodium 100 mls @ 1 mls/hr 02/06/21 19:00 02/10/21 01:00 Chloride/ Miscellaneous IV 1 mg/hr Information TITR CECE 1 mls/hr Titration Protocol 1 MG/HR Sodium Chloride 500 mls @ 0 mls/hr 02/10/21 15:42 Nacl 0.9% 500 Ml IV 02/11/21 15:41 ONCE CECE As Directed Multi-Ingred Cream/Lotion/Oil/Oint 1 applic 01/22/21 22:39 02/01/21 09:33 Mineral Oil/Petrolatum, White Ophth Oint 3.5 Gm OU 1 applic Q4HR PRN Administration Dry Eye(s) Ondansetron HCl 4 mg 01/23/21 02:17 Ondansetron 4 Mg/2 Ml Inj IV Q8H PRN Nausea And Vomiting Potassium Chloride 40 meq 02/10/21 16:42 Potassium Chloride Er 20 Meq Tab PO 02/10/21 16:43 ONCE ONE Simple Syrup 15 ml 01/26/21 14:25 Simple Syrup 15 Ml FEEDTUBE PRN PRN Hypoglycemia Simple Syrup 30 ml 01/26/21 14:25 Simple Syrup 15 Ml FEEDTUBE PRN PRN Hypoglycemia Sodium Bicarbonate 325 mg 01/26/21 14:25 Sodium Bicarbonate 325 Mg Tab FEEDTUBE PRN PRN For Clogged Feeding Tube Nutrition/Malnutrition Assess - Dietary Evaluation Nutrition/Malnutrition Findings: Nutrition Notes Start: 01/26/21 13:59 Freq: Status: Active Protocol: Document 02/10/21 13:44 CW (Rec: 02/10/21 13:57 CW [id number]) Nutrition Notes Initial or Follow up Reassessment Current Diagnosis Acute Kidney Injury,Diabetes, Sepsis,Hypertension, Respiratory Failure, Hyperlipidemia Other Pertinent Diagnosis on HD, COVID-19 (+), bilat pneu Current Diet TF - Nepro at 36 ml/hr Labs/Tests 02/09/2021 Na 135 BUN 54 Cr 6.6 BG 163 Pertinent Medications NaHCO3 150 mEq in D at 100 ml/ hr Height 5 ft 8 in Weight 147.6 kg [place] Body Weight (kg) 70.00 BMI 49.4 Weight change and time frame wt increase likely r/t to HD need Weight Status Morbidly Obese Subjective/Other Information F/U for proning, propofol, vent status, and HD. Last HD was on 02/07/2021. Pt has not received propofol today but per MD pt may recieve propofol in near future. Per RN pt is tolerating TF well. TF running at goal of 36 ml/hr. Will adjust flush d/t hyponatremia. . EUGENIO Null aware of change. Percent of energy/protein needs met: 88%/61% Burn Absent Trauma Absent GI Symptoms None Difficulty In Swallowing Skin Integrity/Comment Intact Current % PO Negligible Minimum of two criteria No physical signs of malnutrition #1 Nutrition Diagnosis Inadequate oral intake Diagnosis Progress(for reassessment Continues documentation) Is patient on ventilator? Yes Is Patient Ambulatory and/or Out of Bed No REE-([facility]-confined to bed) 2704.776 Kcal/Kg value to use for calculation 12 Approximate Energy Requirements Using 1771 kcal/Kg Calculation Used for Recommendations Kcal/kg Additional Notes Pro needs >1.2g/kg adjBW: > 115g/day for HD needs Fluid needs per MD Nutrition Intervention Change Diet Order: Resume Nepro at 36 ml, decrease flush to 200 ml q4h for hyponatremia Nutrition Support: If running continuous feed x 24 hrs without proning: Nepro at 36 ml/hr with a free water flush 200 ml q4h. If in prone position x 12/hr day: While in prone position: Nepro at 20 ml/hr with free water flush of 100 ml q4h or per MD order. While in supine position: Nepro at 65 ml/hr with a free water flush of 200 ml q4h or per MD order. Kcal 1,555 Protein (gm) 70 Fluid (mL) 628 Goal #1 TF tolerance Goal #2 TF to meet at least 75% energy and pro needs Anticipated Discharge Needs: unable to determine at this time Follow-Up By: 02/13/21 Additional Comments F/U for TF tolerance, vent status, propofol
[2021-02-10 15:06] LABS: Calcium 6.1 mg/dL (8.4-10.2)
[2021-02-10] MEDS ORDERED: SODIUM CHLORIDE 0.9% 500 ML 500 ML IV SCH (15:42)
[2021-02-10] MEDS ORDERED: POTASSIUM CHLORIDE ER 20 MEQ TAB PO ONE (16:42)
[2021-02-10] MEDS ORDERED: POTASSIUM CHLORIDE 20 MEQ PACKET FEEDTUBE ONE (17:42)
[2021-02-10 22:40] LABS: Hemoglobin 6.4 gm/dl (11.8-15.2)
[2021-02-10 23:44] LABS: Hematocrit 19.1 % (35.5-45.6)
[2021-02-11] MEDS: fentaNYL DRIP Premix 2,000 MCG/100 ML BAG IV SCH ×6 (00:22→21:15)
[2021-02-11] MEDS: dexmedeTOMIDine 1,000 MCG in SODIUM CHLORIDE 0.9% 250ML 250 ML IV SCH ×4 (00:30→21:15)
[2021-02-11] MEDS: SODIUM BICARBONATE 150 MEQ in DEXTROSE 5% IN WATER 1,000 ML IV SCH ×2 (02:19→13:30)
[2021-02-11] MEDS: ACETAMINOPHEN 325 MG/10.15 ML ORAL LIQD UNIT DOSE FEEDTUBE PRN (04:09)
[2021-02-11 04:58] LABS: Hemoglobin 7.2 gm/dl (11.8-15.2); Mean Corpuscular HGB Conc 34 % (32-34); Mean Corpuscular Volume 94 fl (84-94); Platelet Count 239 K/mm3 (140-440); Red Blood Count 2.22 M/mm3 (3.65-5.03); Red Cell Distribution Width 13.8 % (13.2-15.2)
[2021-02-11 05:09] LABS: Calcium 6.2 mg/dL (8.4-10.2)
[2021-02-11 05:44] LABS: Eosinophils % (Auto) 0.9 % (0.0-4.3); Lymphocytes % (Auto) 8.7 % (13.4-35.0); Monocytes % (Auto) 3.8 % (0.0-7.3)
[2021-02-11 05:45] LABS: Eosinophils # (Auto) 0.1 K/mm3 (0.0-0.4); Lymphocytes # (Auto) 0.9 K/mm3 (1.2-5.4); Monocytes # (Auto) 0.4 K/mm3 (0.0-0.8)
[2021-02-11 08:58] LABS: INR 1.17 (0.87-1.13)
[2021-02-11] MEDS: ENOXAPARIN 120 MG/0.8 ML INJ SUB-Q SCH (09:06)
[2021-02-11] MEDS: FAMOTIDINE 20 MG TAB PO SCH (09:06)
[2021-02-11] MEDS ORDERED: HEPARIN 10,000 UNITS/10 ML VIAL IV PRN (09:38)
[2021-02-11] MEDS ORDERED: SODIUM CHLORIDE 0.9% 100 ML IV PRN (09:38)
[2021-02-11 09:56] LABS: C-Reactive Protein 12.6 mg/dL (0.00-1.30)
--- NOTE | 2021-02-11 11:42 | Progress Note ---
Assessment and Plan Assessment: Acute Hypoxic respiratory failure COVID-19 PNA Severe sepsis with septic shock Acute kidney injury secondary to ATN Hyperkalemia Hypernatremia DM2 on insulin Anemia Plan: Judith labs reviewed. Serum creatinine 7.9 today, yesterday's was 7.5. Hemodialysis ordered today for UF and clearance Initiated on HD on 02/03/21 S/P Right IJ Trialysis dialysis catheter placement by Dr Reddy Hypokalemia-3.5K bath with HD Strict I&O's monitoring, no urine output recorded Renally dose medications Assess dialysis needs daily Monitor for renal recovery Subjective Date of service: 02/11/21 Principal diagnosis: DEISI Interval history: Patient not directly seen or examined due to being with active COVID-19 infection to limit/reduce risk of exposure and or transmission of the disease in this pandemic and due to limited PPE resources. Objective - Vital Signs Vital signs: Vital Signs - 12hr 02/10/21 02/10/21 02/11/21 23:45 23:52 00:00 Temperature 99.2 F Pulse Rate 104 H 103 H 105 H Pulse Rate [ 96 H From Monitor] Respiratory 34 H 0 L 34 H Rate Blood Pressure 119/60 110/59 119/58 O2 Sat by Pulse 96 96 98 Oximetry 02/11/21 02/11/21 02/11/21 00:10 00:20 00:30 Temperature 99.2 F Pulse Rate 106 H 106 H 106 H Pulse Rate [ From Monitor] Respiratory 33 H 33 H 34 H Rate Blood Pressure 119/58 124/57 131/68 O2 Sat by Pulse 95 95 95 Oximetry 02/11/21 02/11/21 02/11/21 00:32 00:45 01:00 Temperature 99.4 F Pulse Rate 105 H 105 H Pulse Rate [ From Monitor] Respiratory 34 H 34 H Rate Blood Pressure 121/58 115/60 O2 Sat by Pulse 96 95 Oximetry 02/11/21 02/11/21 02/11/21 01:10 01:20 01:30 Temperature Pulse Rate 104 H 104 H 103 H Pulse Rate [ From Monitor] Respiratory 34 H 32 H 34 H Rate Blood Pressure 115/60 120/55 124/63 O2 Sat by Pulse 95 95 95 Oximetry 02/11/21 02/11/21 02/11/21 01:40 01:50 02:00 Temperature Pulse Rate 103 H 102 H 101 H Pulse Rate [ From Monitor] Respiratory 34 H 33 H 34 H Rate Blood Pressure 124/63 122/60 117/56 O2 Sat by Pulse 95 95 95 Oximetry 02/11/21 02/11/21 02/11/21 02:15 02:30 02:45 Temperature Pulse Rate 99 H 98 H 97 H Pulse Rate [ From Monitor] Respiratory 34 H 34 H 34 H Rate Blood Pressure 116/60 117/58 116/56 O2 Sat by Pulse 95 95 96 Oximetry 02/11/21 02/11/21 02/11/21 03:00 03:15 03:30 Temperature Pulse Rate 96 H 95 H 95 H Pulse Rate [ From Monitor] Respiratory 34 H 34 H 34 H Rate Blood Pressure 120/60 113/58 116/59 O2 Sat by Pulse 96 96 96 Oximetry 02/11/21 02/11/21 02/11/21 03:45 03:55 04:00 Temperature 100.3 F H Pulse Rate 93 H 95 H 92 H Pulse Rate [ 96 H From Monitor] Respiratory 34 H 0 L 34 H Rate Blood Pressure 112/56 113/58 115/57 O2 Sat by Pulse 95 97 95 Oximetry 02/11/21 02/11/21 02/11/21 04:15 04:30 04:45 Temperature Pulse Rate 97 H 100 H 105 H Pulse Rate [ From Monitor] Respiratory 26 H 34 H 35 H Rate Blood Pressure 171/90 146/80 188/85 O2 Sat by Pulse 96 95 95 Oximetry 02/11/21 02/11/21 02/11/21 05:00 05:15 05:30 Temperature Pulse Rate 105 H 105 H 104 H Pulse Rate [ From Monitor] Respiratory 35 H 34 H 34 H Rate Blood Pressure 179/85 173/84 183/84 O2 Sat by Pulse 95 96 96 Oximetry 02/11/21 02/11/21 02/11/21 05:45 06:00 06:15 Temperature Pulse Rate 103 H 100 H 101 H Pulse Rate [ From Monitor] Respiratory 34 H 34 H 34 H Rate Blood Pressure 164/80 159/86 167/89 O2 Sat by Pulse 96 95 96 Oximetry 02/11/21 02/11/21 02/11/21 06:30 06:45 07:00 Temperature Pulse Rate 98 H 98 H 96 H Pulse Rate [ From Monitor] Respiratory 34 H 34 H 34 H Rate Blood Pressure 151/82 147/81 147/81 O2 Sat by Pulse 96 94 94 Oximetry 02/11/21 02/11/21 02/11/21 07:15 07:30 07:45 Temperature Pulse Rate 95 H 94 H 96 H Pulse Rate [ From Monitor] Respiratory 34 H 34 H 34 H Rate Blood Pressure 132/75 131/74 131/73 O2 Sat by Pulse 94 94 95 Oximetry 02/11/21 02/11/21 02/11/21 08:00 08:10 08:15 Temperature 98.8 F Pulse Rate 95 H 94 H 93 H Pulse Rate [ From Monitor] Respiratory 34 H 34 H Rate Blood Pressure 137/78 137/78 129/75 O2 Sat by Pulse 95 95 99 Oximetry 02/11/21 02/11/21 02/11/21 08:30 08:45 09:00 Temperature Pulse Rate 93 H 93 H 94 H Pulse Rate [ From Monitor] Respiratory 34 H 34 H 34 H Rate Blood Pressure 100/54 102/55 105/59 O2 Sat by Pulse 95 95 96 Oximetry - Lab 02/11/21 04:30 02/11/21 09:00 Most recent lab results ABG pH 7.307 (7.320-7.450) L 02/11/21 04:05 ABG pCO2 82.8 mm Hg 02/06/21 17:00 ABG pO2 109.8 mm Hg (80.0-90.0) H 02/06/21 17:00 ABG HCO3 28.7 mmol/L (20.0-26.0) H 02/06/21 17:00 ABG O2 Saturation 92.7 (0-100) 02/11/21 04:05 Calcium 6.2 mg/dL (8.4-10.2) L 02/11/21 04:30 Phosphorus 3.60 mg/dL (2.5-4.5) D 02/08/21 06:00 Magnesium 2.20 mg/dL (1.7-2.3) 02/04/21 04:45 Urine Creatinine 53.0 mg/dL (0.1-20.0) H 01/30/21 12:00 Urine Sodium 28 mmol/L 01/22/21 22:39 Medications & Allergies - Medications Allergies/Adverse Reactions: Allergies No Known Allergies Allergy (Unverified 03/12/20 13:41) Home Medications: Home Medications Medication Instructions Recorded Confirmed Last Taken Type Clindamycin [Clindamycin CAP] 300 mg PO Q8H #21 cap 03/12/20 Unknown Rx Insulin NPH/Regular [Novolin 70/30] 18 unit SUB-Q TIDAC #1 vial 03/12/20 Unknown Rx Syringe-Needle,Insulin,0.5 ml 1 box MC TID #1 box 03/12/20 Unknown Rx [Insulin Syringe/Needle 0.5 ML] Active Medications: Generic Name Dose Route Start Last Admin Trade Name Freq PRN Reason Stop Dose Admin Acetaminophen 650 mg 01/23/21 02:25 Acetaminophen 650 Mg Rect Supp [place] Q4H PRN Pain, Mild (1-3) Acetaminophen 650 mg 01/24/21 12:58 02/11/21 04:09 Acetaminophen 325 Mg/10.15 Ml Oral Liqd Unit Dose FEEDTUBE 650 mg Q6H PRN Administration Pain, Mild (1-3) Lipase/Protease/Amylase 1 each 01/26/21 14:25 Lipase 10,500/Protease 25,000/Amylase 43,750 (Units) Dr Cap FEEDTUBE PRN PRN For Clogged Feeding Tube Dextrose 50 ml 01/27/21 07:24 Dextrose 50% In Water (25gm) 50 Ml Syringe IV Q30MIN PRN Hypoglycemia Protocol Enoxaparin Sodium 120 mg 01/26/21 11:00 02/11/21 09:06 Enoxaparin 120 Mg/0.8 Ml Inj SUB-Q 120 mg Q24HR CECE Administration Famotidine 20 mg 02/10/21 10:00 02/11/21 09:06 Famotidine 20 Mg Tab PO 20 mg DAILY CECE Administration Fentanyl 50 mcg 01/22/21 22:39 02/10/21 13:46 Fentanyl 100 Mcg/2 Ml Inj IV 50 mcg Q10MIN PRN Administration ANALGESIA Heparin Sodium (Porcine) 2,000 unit 02/11/21 09:38 Heparin 10,000 Units/10 Ml Vial IV SAGRARIO PRN hemodialysis Hydrophilic Ointment 1 applic 01/22/21 22:39 Lip Therapy Vaseline TP Q2HR PRN Dry Lips Fentanyl Citrate 2,000 mcg in 100 mls @ 6.124 mls/hr 01/22/21 23:00 02/11/21 09:05 Fentanyl Drip Premix IV 4 mcg/kg/hr TITR CECE 24.494 mls/hr Administration Protocol 1 MCG/KG/HR Propofol 1,000 mg in 100 mls @ 3.674 mls/hr 01/22/21 23:45 02/06/21 18:37 Diprivan 10 Mg/Ml IV 0 mcg/kg/min TITR CECE 0 mls/hr Titration Protocol 5 MCG/KG/MIN Norepinephrine 4 mg in 250 mls @ 7.5 mls/hr 01/28/21 14:00 02/08/21 06:08 Levophed Drip 4 Mg/Ns 250 Ml IV 0 mcg/min TITR CECE 0 mls/hr Titration Protocol 2 MCG/MIN Dexmedetomidine HCl 1,000 mcg/ 260 mls @ 6.368 mls/hr 01/30/21 20:00 02/11/21 08:37 Sodium Chloride IV 1.4 mcg/kg/hr TITRATE CECE 44.579 mls/hr Administration Protocol 0.2 MCG/KG/HR Sodium Bicarbonate 150 meq/ 1,150 mls @ 100 mls/hr 02/06/21 11:30 02/11/21 02:19 Dextrose IV 100 mls/hr DIRECT CECE Administration Lorazepam 100 mg/ Sodium 100 mls @ 1 mls/hr 02/06/21 19:00 02/10/21 01:00 Chloride/ Miscellaneous IV 1 mg/hr Information TITR CECE 1 mls/hr Titration Protocol 1 MG/HR Sodium Chloride 500 mls @ 0 mls/hr 02/10/21 15:42 Nacl 0.9% 500 Ml IV 02/11/21 15:41 ONCE CECE As Directed Sodium Chloride 100 mls @ 999 mls/hr 02/11/21 09:38 Nacl 0.9% IV SAGRARIO PRN Hypotension Multi-Ingred Cream/Lotion/Oil/Oint 1 applic 01/22/21 22:39 02/01/21 09:33 Mineral Oil/Petrolatum, White Ophth Oint 3.5 Gm OU 1 applic Q4HR PRN Administration Dry Eye(s) Ondansetron HCl 4 mg 01/23/21 02:17 Ondansetron 4 Mg/2 Ml Inj IV Q8H PRN Nausea And Vomiting Simple Syrup 15 ml 01/26/21 14:25 Simple Syrup 15 Ml FEEDTUBE PRN PRN Hypoglycemia Simple Syrup 30 ml 01/26/21 14:25 Simple Syrup 15 Ml FEEDTUBE PRN PRN Hypoglycemia Sodium Bicarbonate 325 mg 01/26/21 14:25 Sodium Bicarbonate 325 Mg Tab FEEDTUBE PRN PRN For Clogged Feeding Tube
--- NOTE | 2021-02-11 13:37 | XRay Report ---
CHEST 1 VIEW INDICATION / CLINICAL INFORMATION: Vascath Placement Right Side. COMPARISON: 02/07/2021 FINDINGS: SUPPORT DEVICES: Endotracheal tube, nasogastric tube, right central venous catheter HEART / MEDIASTINUM: No significant abnormality. LUNGS / PLEURA: Diffuse bilateral airspace disease No pneumothorax. ADDITIONAL FINDINGS: No significant additional findings. IMPRESSION: Right central venous catheter is present with the tip superimposed over the expected position of the superior vena cava. No evidence of a right-sided pneumothorax Signer Name: Randy Abraham MD FACR Signed: 02/11/2021 1:29 PM Workstation Name: [id number]
[2021-02-11] MEDS: EPOETIN ALFA-EPBX 20,000 UNIT/1 ML VIAL IV PRN (13:51)
--- NOTE | 2021-02-11 13:52 | Progress Note ---
Assessment and Plan 60 y/o male with ARDS secondary most likely to COVID 19 pneumonia. 02/11/21: Vascath placed today for HD. Orders already in. Wean FiO2 for sats >88%. Abx per ID. Repeat cultures so far negative. Given persistent fevers, will check upper ext dopplers. Prognosis still remains guarded. 02/10/21: Triglycerides improved but current sedation is adequate so will hold on stopping ativan to add propofol back. Awaiting Labs from this morning. Plan to replace HD catheter tomorrow morning as early as possible. Fever curve is trending down. Continue bicarb drip for now. Prognosis remains guarded. WIll speak with family tomorrow to update. 02/09/21: Repeat Triglycerides today. Follow up repeat blood cultures. Given continued fever will hold on replacing vascath today. If fever free the next 24 hours, can place in the morning or Tuesday morning. Will likely need blood with next HD session. Continue bicarb drip to help manage respiratory as well as metabolic acidosis. Wean FiO2 for sats >88% and PaO2 >55. Overall prognosis remains guarded to poor. 02/08/21: Picc out today. Will repeat culture if patient spikes again today. Plan to replace HD catheter either late tomorrow or Tuesday. Continue current level of sedation. Abx therapy per ID. Wean FiO2 as tolerated, doubt will be able to do much until we can resume HD. Guarded prognosis. Replaced potassium. Will need to check in the morning. Will repeat K later this afternoon. 02/07/21: Biggest issue now is that patient's numbers are better with HD but now with bacteremia, concern for line infection. ID is correct in requesting line holiday. Has a picc and an Right IJ Dialysis catheter with 3 ports. Currently getting HD today. Have not seen renal yet. Will pull right IJ line post HD and plan to replace it Tuesday evening or Tuesday. Continue bicarb drip for now and will keep picc as patient has been requiring levophed. If able to be weaned off levophed, will remove picc either tomorrow or Tuesday. Continue Ativan, Precedex and Fent drips, repeat Triglycerides on Tuesday. Very very guarded prognosis. Will remove Black today as well. 02/06/21: Will add bicarb drip at 125/hr. Giving 2 amps of NaHCO3 push now. Will repeat ABG this afternoon, may just ask for Art Line if possible. HD today per renal and I spoke with them about the bicarb drip. Long discussion with Sister, Significant and other and another family member on the phone on yesterday. I tried my best to explain the severity of the clinical state but not sure if they fully understood. The patient is very very ill and history suggests that his outcome will be poor (intubated with covid and renal failure on dialysis). This was expressed with the family. Will continue all supportive measures. Checking triglyceride levels today. 02/05/21: WIll increase PEEP to 16. Can increase pressors if needed for BP control during HD. Follow up cultures. If negative will scan legs and arms again for VTE. Repeat ABG at 1400 today. Will speak with sister and Girlfriend on phone today. 02/04/21: HD again today per renal notes. Likely will need daily HD. New fevers. Will draw blood and urine cultures if able to still make urine.. Repeat CXR. May need to check dopplers if all of those studies are negative. Wean FIO2 as tolerated. Unable to tolerate proning. Guarded to poor prognosis. 02/03/21: HD today per renal. Wean FiO2 as tolerated. No further proning as patient cannot tolerate it, however with volume removal, may consider in the future. Use pressors to keep MAPs 65 and greater for HD purporses so volume can be removed. (IJ was wide open (filled with blood)) with patient sitting up at 45 degrees. Guarded prognosis. 02/02/21: After renal speaks with family, will place vascath today. Agree with bicarb drip but will order some pushes now to help with pH. Overall prognosis is very very guarded to poor now that patient is COVID positive and requiring renal replacement therapy. Mortality is very high in these patients. Continue steroid therapy. Unable to tolerate proning. 01/30/21: Will plan for proning later today. Goal will be at least 12hrs but long is okay. Speaking with pharmacy to see if we can get paralytic for a longer period of time. Regardless will prone. Continue heavy sedation. BP stable. Continue steroids. Very very guarded prognosis. 01/29/21: will increase tidal volume and/or increase respiratory rate. Repeat ABG this afternoon. Continue paralytic and adequate sedation. Continue steroid and remdesivir, follow up any renal recs. Prognosis remains guarded. Wean Fio2 for sats >88% 01/28/21: Increased PEEP to 16. Will paralyze patient today and increase se dation. Ordering picc line for possible vasopressor therapy needs. Continue BID steroids. Renal function is slightly better today with fluids but could be making oxygenation worse. Not able to diurese. Still making urine. Continue Remdesivir. Watch for fever curve. If not improvement in the next 24 hours with paralyzing, will prone tomorrow morning. 01/27/21: Continue PEEP at 14. No weaning until FiO2 is at or below 40-45%. Continue anticoagulation. Getting Remdesivir now. Continue BID steroids. Renal has increased the fluids. Monitor urine output and renal function. Overall pro gnosis is very very guarded, especially if renal status worsens. 01/26/21: Increase PEEP to 14. Will add Precedex therapy. If patient does not respond to increases in PEEP may need to prone. Will place patient on lovenox and will feed patient. Remdesivir coming. Continue BID steroids. Prognosis is guarded. 01/25/21: Hold on proning today. Continue BID steroids. ABG this AM was adequate. Pending abg tomorrow, may increase PEEP if not able to wean FiO2 any further. Per charting Remdesivir to arrive tomorrow. Guarded prognosis. 01/24/21: Continue BID steroids. No abg done this am but able to wean FiO2. Will obtain ABG in the am. Hold on proning for right now. Renal following, would like to diurese but they are given fluids for deisi. Agree with ID assessment and note. Guarded prognosis. 1. Increase steroids to BID given size 2. Check with ID to see if he is a candidate for remdesivir or any other experiemental therapy 3. Hold on proning for right now 4. Renal consulted and giving IVF's currently Guarded prognosis. CCT 31 minutes. Subjective Date of service: 02/11/21 Principal diagnosis: DEISI Interval history: Still with fever but low grade. Oxygen is up to 75% now. K is still ok but renal function worse. Has worsening symptoms of volume overload. Was given blood last night. Objective Vital Signs - 12hr 02/11/21 02/11/21 02/11/21 01:50 02:00 02:15 Temperature Pulse Rate 102 H 101 H 99 H Pulse Rate [ From Monitor] Respiratory 33 H 34 H 34 H Rate Blood Pressure 122/60 117/56 116/60 O2 Sat by Pulse 95 95 95 Oximetry O2 Sat by Pulse Oximetry [ Anterior Bilateral Throughout] 02/11/21 02/11/21 02/11/21 02:30 02:45 03:00 Temperature Pulse Rate 98 H 97 H 96 H Pulse Rate [ From Monitor] Respiratory 34 H 34 H 34 H Rate Blood Pressure 117/58 116/56 120/60 O2 Sat by Pulse 95 96 96 Oximetry O2 Sat by Pulse Oximetry [ Anterior Bilateral Throughout] 02/11/21 02/11/21 02/11/21 03:15 03:30 03:45 Temperature Pulse Rate 95 H 95 H 93 H Pulse Rate [ From Monitor] Respiratory 34 H 34 H 34 H Rate Blood Pressure 113/58 116/59 112/56 O2 Sat by Pulse 96 96 95 Oximetry O2 Sat by Pulse Oximetry [ Anterior Bilateral Throughout] 02/11/21 02/11/21 02/11/21 03:55 04:00 04:15 Temperature 100.3 F H Pulse Rate 95 H 92 H 97 H Pulse Rate [ 96 H From Monitor] Respiratory 0 L 34 H 26 H Rate Blood Pressure 113/58 115/57 171/90 O2 Sat by Pulse 97 95 96 Oximetry O2 Sat by Pulse Oximetry [ Anterior Bilateral Throughout] 02/11/21 02/11/21 02/11/21 04:30 04:45 05:00 Temperature Pulse Rate 100 H 105 H 105 H Pulse Rate [ From Monitor] Respiratory 34 H 35 H 35 H Rate Blood Pressure 146/80 188/85 179/85 O2 Sat by Pulse 95 95 95 Oximetry O2 Sat by Pulse Oximetry [ Anterior Bilateral Throughout] 02/11/21 02/11/21 02/11/21 05:15 05:30 05:45 Temperature Pulse Rate 105 H 104 H 103 H Pulse Rate [ From Monitor] Respiratory 34 H 34 H 34 H Rate Blood Pressure 173/84 183/84 164/80 O2 Sat by Pulse 96 96 96 Oximetry O2 Sat by Pulse Oximetry [ Anterior Bilateral Throughout] 02/11/21 02/11/21 02/11/21 06:00 06:15 06:30 Temperature Pulse Rate 100 H 101 H 98 H Pulse Rate [ From Monitor] Respiratory 34 H 34 H 34 H Rate Blood Pressure 159/86 167/89 151/82 O2 Sat by Pulse 95 96 96 Oximetry O2 Sat by Pulse Oximetry [ Anterior Bilateral Throughout] 02/11/21 02/11/21 02/11/21 06:45 07:00 07:15 Temperature Pulse Rate 98 H 96 H 95 H Pulse Rate [ From Monitor] Respiratory 34 H 34 H 34 H Rate Blood Pressure 147/81 147/81 132/75 O2 Sat by Pulse 94 94 94 Oximetry O2 Sat by Pulse Oximetry [ Anterior Bilateral Throughout] 02/11/21 02/11/21 02/11/21 07:30 07:45 08:00 Temperature 98.8 F Pulse Rate 94 H 96 H 95 H Pulse Rate [ From Monitor] Respiratory 34 H 34 H 34 H Rate Blood Pressure 131/74 131/73 137/78 O2 Sat by Pulse 94 95 95 Oximetry O2 Sat by Pulse Oximetry [ Anterior Bilateral Throughout] 02/11/21 02/11/21 02/11/21 08:10 08:15 08:30 Temperature Pulse Rate 94 H 93 H 93 H Pulse Rate [ From Monitor] Respiratory 34 H 34 H Rate Blood Pressure 137/78 129/75 100/54 O2 Sat by Pulse 95 99 95 Oximetry O2 Sat by Pulse Oximetry [ Anterior Bilateral Throughout] 02/11/21 02/11/21 02/11/21 08:45 09:00 09:15 Temperature Pulse Rate 93 H 94 H 94 H Pulse Rate [ From Monitor] Respiratory 34 H 34 H 34 H Rate Blood Pressure 102/55 105/59 109/59 O2 Sat by Pulse 95 96 96 Oximetry O2 Sat by Pulse Oximetry [ Anterior Bilateral Throughout] 02/11/21 02/11/21 02/11/21 09:30 09:45 10:00 Temperature Pulse Rate 93 H 93 H 92 H Pulse Rate [ From Monitor] Respiratory 34 H 34 H 34 H Rate Blood Pressure 107/59 103/57 99/57 O2 Sat by Pulse 96 96 96 Oximetry O2 Sat by Pulse Oximetry [ Anterior Bilateral Throughout] 02/11/21 02/11/21 02/11/21 10:15 10:30 10:45 Temperature Pulse Rate 92 H 93 H 93 H Pulse Rate [ From Monitor] Respiratory 34 H 34 H 34 H Rate Blood Pressure 104/60 103/60 102/59 O2 Sat by Pulse 96 95 96 Oximetry O2 Sat by Pulse Oximetry [ Anterior Bilateral Throughout] 02/11/21 02/11/21 02/11/21 11:00 11:15 11:30 Temperature Pulse Rate 94 H 95 H 94 H Pulse Rate [ From Monitor] Respiratory 34 H 34 H 34 H Rate Blood Pressure 108/63 110/62 105/60 O2 Sat by Pulse 96 96 96 Oximetry O2 Sat by Pulse Oximetry [ Anterior Bilateral Throughout] 02/11/21 02/11/21 02/11/21 11:45 12:00 12:15 Temperature Pulse Rate 93 H 96 H 98 H Pulse Rate [ From Monitor] Respiratory 34 H 34 H 31 H Rate Blood Pressure 103/59 109/62 118/62 O2 Sat by Pulse 96 95 96 Oximetry O2 Sat by Pulse Oximetry [ Anterior Bilateral Throughout] 02/11/21 02/11/21 02/11/21 12:30 12:45 13:00 Temperature 98.8 F Pulse Rate 100 H 100 H 100 H Pulse Rate [ From Monitor] Respiratory 34 H 32 H 34 H Rate Blood Pressure 117/62 120/62 114/63 O2 Sat by Pulse 97 97 97 Oximetry O2 Sat by Pulse 95 Oximetry [ Anterior Bilateral Throughout] 02/11/21 02/11/21 13:15 13:30 Temperature Pulse Rate 98 H 96 H Pulse Rate [ From Monitor] Respiratory 34 H 35 H Rate Blood Pressure 113/59 116/59 O2 Sat by Pulse 95 95 Oximetry O2 Sat by Pulse Oximetry [ Anterior Bilateral Throughout] Constitutional: comatose Eyes: non-icteric ENT: other (orally intubated and sedated) Neck: supple Effort: mildly labored Ascultation: Bilateral: clear Percussion: Bilateral: not dull Cardiovascular: regular rate and rhythm Gastrointestinal: normoactive bowel sounds CBC and BMP: 02/11/21 04:30 02/11/21 09:00 ABG, PT/INR, D-dimer: ABG ABG pH 7.307 (7.320-7.450) L 02/11/21 04:05 POC ABG pCO2 72.2 mmHg (32.0-48.0) H 02/11/21 04:05 ABG pCO2 82.8 mm Hg 02/06/21 17:00 POC ABG pO2 72.3 mmHg (83-108) L 02/11/21 04:05 ABG pO2 109.8 mm Hg (80.0-90.0) H 02/06/21 17:00 POC ABG HCO3 35.3 02/11/21 04:05 ABG O2 Saturation 92.7 (0-100) 02/11/21 04:05 PT/INR, D-dimer PT 14.9 Sec. (12.2-14.9) 02/11/21 08:27 INR 1.17 (0.87-1.13) H 02/11/21 08:27 D-Dimer 1930.92 ng/mlDDU (0-234) H 02/11/21 08:27 Abnormal lab findings: Abnormal Labs 01/22/21 01/22/21 01/22/21 22:39 22:57 22:57 WBC RBC Hgb Hct MCV MCH MCHC RDW Plt Count Lymph % (Auto) 6.6 L Lymph # (Auto) 0.5 L Seg Neutrophils % 87.6 H Seg Neuts % (Manual) Lymphocytes % (Manual) Nucleated RBC % Seg Neutrophils # Seg Neutrophils # Man Lymphocytes # (Manual) Eosinophils # (Manual) INR D-Dimer ABG pH POC ABG pCO2 POC ABG pO2 ABG pO2 ABG HCO3 ABG O2 Saturation ABG Base Excess ABG Hemoglobin ABG Oxyhemoglobin ABG Sodium ABG Potassium ABG Chloride ABG Glucose Oxyhemoglobin Carboxyhemoglobin Sodium 129 L Potassium 3.4 L Chloride 90.4 L Carbon Dioxide BUN 34 H Creatinine 1.5 H Glucose 146 H POC Glucose Hemoglobin A1c Lactic Acid Calcium 7.8 L Phosphorus Magnesium Ferritin Total Bilirubin AST 75 H ALT 57 H Lactate Dehydrogenase C-Reactive Protein Albumin 2.9 L Triglycerides Arterial Blood Glucose Arterial Blood Ionized Calcium Urine Creatinine 301.2 H Coronavirus (PCR) Crossmatch 01/22/21 01/22/21 01/22/21 22:57 22:57 22:57 WBC RBC Hgb Hct MCV MCH MCHC RDW Plt Count Lymph % (Auto) Lymph # (Auto) Seg Neutrophils % Seg Neuts % (Manual) Lymphocytes % (Manual) Nucleated RBC % Seg Neutrophils # Seg Neutrophils # Man Lymphocytes # (Manual) Eosinophils # (Manual) INR D-Dimer 1173.89 H ABG pH POC ABG pCO2 POC ABG pO2 ABG pO2 ABG HCO3 ABG O2 Saturation ABG Base Excess ABG Hemoglobin ABG Oxyhemoglobin ABG Sodium ABG Potassium ABG Chloride ABG Glucose Oxyhemoglobin Carboxyhemoglobin Sodium Potassium Chloride Carbon Dioxide BUN Creatinine Glucose 149 H POC Glucose Hemoglobin A1c Lactic Acid 2.10 H* Calcium Phosphorus Magnesium Ferritin Total Bilirubin AST ALT Lactate Dehydrogenase 685 H C-Reactive Protein 30.40 H Albumin Triglycerides Arterial Blood Glucose Arterial Blood Ionized Calcium Urine Creatinine Coronavirus (PCR) Crossmatch 01/22/21 01/23/21 01/23/21 22:57 08:41 10:01 WBC RBC Hgb Hct MCV MCH MCHC RDW Plt Count Lymph % (Auto) Lymph # (Auto) Seg Neutrophils % Seg Neuts % (Manual) Lymphocytes % (Manual) Nucleated RBC % Seg Neutrophils # Seg Neutrophils # Man Lymphocytes # (Manual) Eosinophils # (Manual) INR D-Dimer ABG pH POC ABG pCO2 POC ABG pO2 ABG pO2 ABG HCO3 ABG O2 Saturation ABG Base Excess ABG Hemoglobin ABG Oxyhemoglobin ABG Sodium ABG Potassium ABG Chloride ABG Glucose Oxyhemoglobin Carboxyhemoglobin Sodium 131 L Potassium Chloride 88.7 L Carbon Dioxide 18 L BUN 36 H Creatinine 1.6 H Glucose 147 H POC Glucose Hemoglobin A1c Lactic Acid Calcium 7.5 L Phosphorus Magnesium Ferritin 1207.0 H Total Bilirubin AST ALT Lactate Dehydrogenase C-Reactive Protein Albumin Triglycerides Arterial Blood Glucose Arterial Blood Ionized Calcium Urine Creatinine Coronavirus (PCR) Positive A Crossmatch 01/23/21 01/23/21 01/24/21 20:49 Unknown 00:10 WBC RBC Hgb Hct MCV MCH MCHC RDW Plt Count Lymph % (Auto) Lymph # (Auto) Seg Neutrophils % Seg Neuts % (Manual) Lymphocytes % (Manual) Nucleated RBC % Seg Neutrophils # Seg Neutrophils # Man Lymphocytes # (Manual) Eosinophils # (Manual) INR D-Dimer ABG pH POC ABG pCO2 POC ABG pO2 ABG pO2 165.4 H ABG HCO3 ABG O2 Saturation ABG Base Excess -2.5 L ABG Hemoglobin ABG Oxyhemoglobin ABG Sodium ABG Potassium ABG Chloride ABG Glucose Oxyhemoglobin Carboxyhemoglobin Sodium 130 L Potassium Chloride 91.0 L Carbon Dioxide 20 L BUN 52 H Creatinine 3.8 H D Glucose 150 H POC Glucose 125 H Hemoglobin A1c Lactic Acid Calcium 8.0 L Phosphorus Magnesium Ferritin Total Bilirubin AST 42 H ALT Lactate Dehydrogenase C-Reactive Protein Albumin 2.4 L Triglycerides Arterial Blood Glucose Arterial Blood Ionized Calcium Urine Creatinine Coronavirus (PCR) Crossmatch 01/24/21 01/24/21 01/24/21 05:05 05:05 05:05 WBC 14.0 H RBC Hgb Hct MCV 95 H MCH 33 H MCHC RDW Plt Count Lymph % (Auto) Lymph # (Auto) Seg Neutrophils % Seg Neuts % (Manual) 91.0 H Lymphocytes % (Manual) 4.0 L Nucleated RBC % Seg Neutrophils # Seg Neutrophils # Man 12.7 H Lymphocytes # (Manual) 0.6 L Eosinophils # (Manual) INR D-Dimer 6159.48 H ABG pH POC ABG pCO2 POC ABG pO2 ABG pO2 ABG HCO3 ABG O2 Saturation ABG Base Excess ABG Hemoglobin ABG Oxyhemoglobin ABG Sodium ABG Potassium ABG Chloride ABG Glucose Oxyhemoglobin Carboxyhemoglobin Sodium Potassium Chloride Carbon Dioxide BUN Creatinine Glucose POC Glucose Hemoglobin A1c Lactic Acid Calcium Phosphorus Magnesium Ferritin 1178.0 H Total Bilirubin AST ALT Lactate Dehydrogenase C-Reactive Protein Albumin Triglycerides Arterial Blood Glucose Arterial Blood Ionized Calcium Urine Creatinine Coronavirus (PCR) Crossmatch 01/24/21 01/24/21 01/24/21 05:05 05:05 05:05 WBC RBC Hgb Hct MCV MCH MCHC RDW Plt Count Lymph % (Auto) Lymph # (Auto) Seg Neutrophils % Seg Neuts % (Manual) Lymphocytes % (Manual) Nucleated RBC % Seg Neutrophils # Seg Neutrophils # Man Lymphocytes # (Manual) Eosinophils # (Manual) INR D-Dimer ABG pH POC ABG pCO2 POC ABG pO2 ABG pO2 ABG HCO3 ABG O2 Saturation ABG Base Excess ABG Hemoglobin ABG Oxyhemoglobin ABG Sodium ABG Potassium ABG Chloride ABG Glucose Oxyhemoglobin Carboxyhemoglobin Sodium 132 L Potassium Chloride 93.1 L Carbon Dioxide 21 L BUN 57 H Creatinine 3.7 H Glucose 133 H POC Glucose Hemoglobin A1c Lactic Acid 2.20 H* Calcium 7.7 L Phosphorus Magnesium Ferritin Total Bilirubin AST ALT Lactate Dehydrogenase 658 H C-Reactive Protein 33.20 H Albumin 2.4 L Triglycerides Arterial Blood Glucose Arterial Blood Ionized Calcium Urine Creatinine Coronavirus (PCR) Crossmatch 01/24/21 01/24/21 01/24/21 05:34 06:00 17:35 WBC RBC Hgb Hct MCV MCH MCHC RDW Plt Count Lymph % (Auto) Lymph # (Auto) Seg Neutrophils % Seg Neuts % (Manual) Lymphocytes % (Manual) Nucleated RBC % Seg Neutrophils # Seg Neutrophils # Man Lymphocytes # (Manual) Eosinophils # (Manual) INR D-Dimer ABG pH POC ABG pCO2 POC ABG pO2 ABG pO2 ABG HCO3 ABG O2 Saturation ABG Base Excess ABG Hemoglobin ABG Oxyhemoglobin ABG Sodium ABG Potassium ABG Chloride ABG Glucose Oxyhemoglobin Carboxyhemoglobin Sodium Potassium Chloride Carbon Dioxide BUN Creatinine Glucose POC Glucose 136 H 137 H Hemoglobin A1c Lactic Acid Calcium Phosphorus Magnesium 2.80 H Ferritin Total Bilirubin AST ALT Lactate Dehydrogenase C-Reactive Protein Albumin Triglycerides Arterial Blood Glucose Arterial Blood Ionized Calcium Urine Creatinine Coronavirus (PCR) Crossmatch 01/25/21 01/25/21 01/25/21 04:15 05:40 05:40 WBC RBC Hgb Hct MCV 95 H MCH 33 H MCHC 35 H RDW Plt Count Lymph % (Auto) Lymph # (Auto) Seg Neutrophils % Seg Neuts % (Manual) 95.0 H Lymphocytes % (Manual) 3.0 L Nucleated RBC % Seg Neutrophils # Seg Neutrophils # Man 7.8 H Lymphocytes # (Manual) 0.2 L Eosinophils # (Manual) INR D-Dimer ABG pH POC ABG pCO2 POC ABG pO2 63.2 L ABG pO2 ABG HCO3 ABG O2 Saturation ABG Base Excess ABG Hemoglobin ABG Oxyhemoglobin 89.6 L ABG Sodium ABG Potassium ABG Chloride ABG Glucose 165 H Oxyhemoglobin Carboxyhemoglobin 0.3 L Sodium Potassium Chloride Carbon Dioxide BUN 67 H Creatinine 3.4 H Glucose 153 H POC Glucose Hemoglobin A1c Lactic Acid Calcium 7.5 L Phosphorus Magnesium Ferritin Total Bilirubin 1.40 H AST 62 H ALT Lactate Dehydrogenase C-Reactive Protein Albumin 2.6 L Triglycerides Arterial Blood Glucose 165 H Arterial Blood Ionized Calcium 4.3 L Urine Creatinine Coronavirus (PCR) Crossmatch 01/25/21 01/25/21 01/25/21 05:59 12:00 17:17 WBC RBC Hgb Hct MCV MCH MCHC RDW Plt Count Lymph % (Auto) Lymph # (Auto) Seg Neutrophils % Seg Neuts % (Manual) Lymphocytes % (Manual) Nucleated RBC % Seg Neutrophils # Seg Neutrophils # Man Lymphocytes # (Manual) Eosinophils # (Manual) INR D-Dimer ABG pH POC ABG pCO2 POC ABG pO2 ABG pO2 ABG HCO3 ABG O2 Saturation ABG Base Excess ABG Hemoglobin ABG Oxyhemoglobin ABG Sodium ABG Potassium ABG Chloride ABG Glucose Oxyhemoglobin Carboxyhemoglobin Sodium Potassium Chloride Carbon Dioxide BUN Creatinine Glucose POC Glucose 140 H 143 H 149 H Hemoglobin A1c Lactic Acid Calcium Phosphorus Magnesium Ferritin Total Bilirubin AST ALT Lactate Dehydrogenase C-Reactive Protein Albumin Triglycerides Arterial Blood Glucose Arterial Blood Ionized Calcium Urine Creatinine Coronavirus (PCR) Crossmatch 01/25/21 01/26/21 01/26/21 23:41 03:43 05:46 WBC RBC Hgb Hct MCV MCH MCHC RDW Plt Count Lymph % (Auto) Lymph # (Auto) Seg Neutrophils % Seg Neuts % (Manual) Lymphocytes % (Manual) Nucleated RBC % Seg Neutrophils # Seg Neutrophils # Man Lymphocytes # (Manual) Eosinophils # (Manual) INR D-Dimer ABG pH POC ABG pCO2 POC ABG pO2 70.0 L ABG pO2 ABG HCO3 ABG O2 Saturation ABG Base Excess ABG Hemoglobin ABG Oxyhemoglobin 91.9 L ABG Sodium ABG Potassium ABG Chloride 109.0 H ABG Glucose 165 H Oxyhemoglobin Carboxyhemoglobin Sodium Potassium Chloride Carbon Dioxide BUN Creatinine Glucose POC Glucose 132 H 161 H Hemoglobin A1c Lactic Acid Calcium Phosphorus Magnesium Ferritin Total Bilirubin AST ALT Lactate Dehydrogenase C-Reactive Protein Albumin Triglycerides Arterial Blood Glucose 165 H Arterial Blood Ionized Calcium 4.5 L Urine Creatinine Coronavirus (PCR) Crossmatch 01/26/21 01/26/21 01/26/21 05:47 05:47 05:47 WBC RBC Hgb Hct 35.3 L MCV 96 H MCH 33 H MCHC RDW Plt Count Lymph % (Auto) Lymph # (Auto) Seg Neutrophils % Seg Neuts % (Manual) 96.0 H Lymphocytes % (Manual) 2.0 L Nucleated RBC % Seg Neutrophils # Seg Neutrophils # Man Lymphocytes # (Manual) 0.1 L Eosinophils # (Manual) INR D-Dimer > 74268 H ABG pH POC ABG pCO2 POC ABG pO2 ABG pO2 ABG HCO3 ABG O2 Saturation ABG Base Excess ABG Hemoglobin ABG Oxyhemoglobin ABG Sodium ABG Potassium ABG Chloride ABG Glucose Oxyhemoglobin Carboxyhemoglobin Sodium Potassium Chloride Carbon Dioxide BUN 57 H Creatinine 2.2 H Glucose 185 H POC Glucose Hemoglobin A1c Lactic Acid Calcium 8.1 L Phosphorus Magnesium Ferritin Total Bilirubin AST ALT Lactate Dehydrogenase C-Reactive Protein Albumin Triglycerides Arterial Blood Glucose Arterial Blood Ionized Calcium Urine Creatinine Coronavirus (PCR) Crossmatch 01/26/21 01/26/21 01/26/21 05:47 05:47 05:47 WBC RBC Hgb Hct MCV MCH MCHC RDW Plt Count Lymph % (Auto) Lymph # (Auto) Seg Neutrophils % Seg Neuts % (Manual) Lymphocytes % (Manual) Nucleated RBC % Seg Neutrophils # Seg Neutrophils # Man Lymphocytes # (Manual) Eosinophils # (Manual) INR D-Dimer ABG pH POC ABG pCO2 POC ABG pO2 ABG pO2 ABG HCO3 ABG O2 Saturation ABG Base Excess ABG Hemoglobin ABG Oxyhemoglobin ABG Sodium ABG Potassium ABG Chloride ABG Glucose Oxyhemoglobin Carboxyhemoglobin Sodium Potassium Chloride 107.1 H Carbon Dioxide BUN 56 H Creatinine 2.2 H Glucose 188 H POC Glucose Hemoglobin A1c Lactic Acid Calcium 8.0 L Phosphorus Magnesium Ferritin 1178.0 H Total Bilirubin 1.50 H AST ALT Lactate Dehydrogenase 588 H C-Reactive Protein 40.10 H Albumin 2.2 L Triglycerides Arterial Blood Glucose Arterial Blood Ionized Calcium Urine Creatinine Coronavirus (PCR) Crossmatch 01/26/21 01/26/21 01/26/21 11:34 18:17 23:20 WBC RBC Hgb Hct MCV MCH MCHC RDW Plt Count Lymph % (Auto) Lymph # (Auto) Seg Neutrophils % Seg Neuts % (Manual) Lymphocytes % (Manual) Nucleated RBC % Seg Neutrophils # Seg Neutrophils # Man Lymphocytes # (Manual) Eosinophils # (Manual) INR D-Dimer ABG pH POC ABG pCO2 POC ABG pO2 ABG pO2 ABG HCO3 ABG O2 Saturation ABG Base Excess ABG Hemoglobin ABG Oxyhemoglobin ABG Sodium ABG Potassium ABG Chloride ABG Glucose Oxyhemoglobin Carboxyhemoglobin Sodium Potassium Chloride Carbon Dioxide BUN Creatinine Glucose POC Glucose 129 H 205 H 155 H Hemoglobin A1c Lactic Acid Calcium Phosphorus Magnesium Ferritin Total Bilirubin AST ALT Lactate Dehydrogenase C-Reactive Protein Albumin Triglycerides Arterial Blood Glucose Arterial Blood Ionized Calcium Urine Creatinine Coronavirus (PCR) Crossmatch 01/27/21 01/27/21 01/27/21 02:45 05:29 05:29 WBC RBC 3.58 L Hgb 11.7 L Hct 34.9 L MCV 97 H MCH 33 H MCHC RDW Plt Count Lymph % (Auto) Lymph # (Auto) Seg Neutrophils % Seg Neuts % (Manual) 88.0 H Lymphocytes % (Manual) 7.0 L Nucleated RBC % Seg Neutrophils # Seg Neutrophils # Man Lymphocytes # (Manual) 0.5 L Eosinophils # (Manual) INR D-Dimer ABG pH 7.319 L POC ABG pCO2 50.7 H POC ABG pO2 63.0 L ABG pO2 ABG HCO3 ABG O2 Saturation ABG Base Excess ABG Hemoglobin ABG Oxyhemoglobin ABG Sodium 145.2 H ABG Potassium 5.1 H ABG Chloride 114.0 H ABG Glucose 178 H Oxyhemoglobin Carboxyhemoglobin Sodium Potassium Chloride Carbon Dioxide BUN Creatinine Glucose POC Glucose Hemoglobin A1c Lactic Acid Calcium Phosphorus Magnesium 4.00 H Ferritin Total Bilirubin AST ALT Lactate Dehydrogenase C-Reactive Protein Albumin Triglycerides Arterial Blood Glucose 178 H Arterial Blood Ionized Calcium Urine Creatinine Coronavirus (PCR) Crossmatch 01/27/21 01/27/21 01/27/21 05:29 05:29 05:31 WBC RBC Hgb Hct MCV MCH MCHC RDW Plt Count Lymph % (Auto) Lymph # (Auto) Seg Neutrophils % Seg Neuts % (Manual) Lymphocytes % (Manual) Nucleated RBC % Seg Neutrophils # Seg Neutrophils # Man Lymphocytes # (Manual) Eosinophils # (Manual) INR D-Dimer ABG pH POC ABG pCO2 POC ABG pO2 ABG pO2 ABG HCO3 ABG O2 Saturation ABG Base Excess ABG Hemoglobin ABG Oxyhemoglobin ABG Sodium ABG Potassium ABG Chloride ABG Glucose Oxyhemoglobin Carboxyhemoglobin Sodium Potassium 5.2 H Chloride 109.6 H Carbon Dioxide BUN 67 H Creatinine 2.8 H Glucose 195 H POC Glucose 176 H Hemoglobin A1c Lactic Acid Calcium 7.9 L Phosphorus Magnesium Ferritin Total Bilirubin AST ALT Lactate Dehydrogenase C-Reactive Protein Albumin Triglycerides 160 H Arterial Blood Glucose Arterial Blood Ionized Calcium Urine Creatinine Coronavirus (PCR) Crossmatch 01/27/21 01/27/21 01/27/21 11:27 18:08 23:30 WBC RBC Hgb Hct MCV MCH MCHC RDW Plt Count Lymph % (Auto) Lymph # (Auto) Seg Neutrophils % Seg Neuts % (Manual) Lymphocytes % (Manual) Nucleated RBC % Seg Neutrophils # Seg Neutrophils # Man Lymphocytes # (Manual) Eosinophils # (Manual) INR D-Dimer ABG pH POC ABG pCO2 POC ABG pO2 ABG pO2 ABG HCO3 ABG O2 Saturation ABG Base Excess ABG Hemoglobin ABG Oxyhemoglobin ABG Sodium ABG Potassium ABG Chloride ABG Glucose Oxyhemoglobin Carboxyhemoglobin Sodium Potassium Chloride Carbon Dioxide BUN Creatinine Glucose POC Glucose 189 H 212 H 175 H Hemoglobin A1c Lactic Acid Calcium Phosphorus Magnesium Ferritin Total Bilirubin AST ALT Lactate Dehydrogenase C-Reactive Protein Albumin Triglycerides Arterial Blood Glucose Arterial Blood Ionized Calcium Urine Creatinine Coronavirus (PCR) Crossmatch 01/28/21 01/28/21 01/28/21 03:58 04:00 04:00 WBC RBC Hgb Hct MCV MCH MCHC RDW Plt Count Lymph % (Auto) Lymph # (Auto) Seg Neutrophils % Seg Neuts % (Manual) Lymphocytes % (Manual) Nucleated RBC % Seg Neutrophils # Seg Neutrophils # Man Lymphocytes # (Manual) Eosinophils # (Manual) INR D-Dimer > 20029 H ABG pH POC ABG pCO2 POC ABG pO2 52.9 L ABG pO2 ABG HCO3 ABG O2 Saturation ABG Base Excess ABG Hemoglobin ABG Oxyhemoglobin 84.1 L ABG Sodium 148.9 H ABG Potassium ABG Chloride 117.0 H ABG Glucose 194 H Oxyhemoglobin Carboxyhemoglobin Sodium Potassium Chloride Carbon Dioxide BUN Creatinine Glucose POC Glucose Hemoglobin A1c Lactic Acid Calcium Phosphorus Magnesium Ferritin Total Bilirubin AST ALT Lactate Dehydrogenase 679 H C-Reactive Protein 17.10 H Albumin Triglycerides Arterial Blood Glucose 194 H Arterial Blood Ionized Calcium Urine Creatinine Coronavirus (PCR) Crossmatch 01/28/21 01/28/21 01/28/21 04:00 05:00 06:00 WBC RBC 3.59 L Hgb 11.6 L Hct 34.8 L MCV 97 H MCH MCHC RDW Plt Count Lymph % (Auto) Lymph # (Auto) Seg Neutrophils % Seg Neuts % (Manual) 96.0 H Lymphocytes % (Manual) 3.0 L Nucleated RBC % Seg Neutrophils # Seg Neutrophils # Man Lymphocytes # (Manual) 0.2 L Eosinophils # (Manual) INR D-Dimer ABG pH POC ABG pCO2 POC ABG pO2 ABG pO2 ABG HCO3 ABG O2 Saturation ABG Base Excess ABG Hemoglobin ABG Oxyhemoglobin ABG Sodium ABG Potassium ABG Chloride ABG Glucose Oxyhemoglobin Carboxyhemoglobin Sodium Potassium Chloride Carbon Dioxide BUN Creatinine Glucose POC Glucose 159 H Hemoglobin A1c Lactic Acid Calcium Phosphorus Magnesium Ferritin 798.0 H Total Bilirubin AST ALT Lactate Dehydrogenase C-Reactive Protein Albumin Triglycerides Arterial Blood Glucose Arterial Blood Ionized Calcium Urine Creatinine Coronavirus (PCR) Crossmatch 01/28/21 01/28/21 01/28/21 06:00 06:00 08:12 WBC RBC Hgb Hct MCV MCH MCHC RDW Plt Count Lymph % (Auto) Lymph # (Auto) Seg Neutrophils % Seg Neuts % (Manual) Lymphocytes % (Manual) Nucleated RBC % Seg Neutrophils # Seg Neutrophils # Man Lymphocytes # (Manual) Eosinophils # (Manual) INR D-Dimer ABG pH POC ABG pCO2 POC ABG pO2 ABG pO2 ABG HCO3 ABG O2 Saturation ABG Base Excess ABG Hemoglobin ABG Oxyhemoglobin ABG Sodium ABG Potassium ABG Chloride ABG Glucose Oxyhemoglobin Carboxyhemoglobin Sodium Potassium Chloride 111.9 H Carbon Dioxide BUN 59 H Creatinine 2.2 H Glucose 189 H POC Glucose 181 H Hemoglobin A1c Lactic Acid Calcium 8.1 L Phosphorus Magnesium 3.20 H Ferritin Total Bilirubin AST ALT Lactate Dehydrogenase C-Reactive Protein Albumin Triglycerides Arterial Blood Glucose Arterial Blood Ionized Calcium Urine Creatinine Coronavirus (PCR) Crossmatch 01/28/21 01/28/21 01/28/21 12:03 16:43 23:51 WBC RBC Hgb Hct MCV MCH MCHC RDW Plt Count Lymph % (Auto) Lymph # (Auto) Seg Neutrophils % Seg Neuts % (Manual) Lymphocytes % (Manual) Nucleated RBC % Seg Neutrophils # Seg Neutrophils # Man Lymphocytes # (Manual) Eosinophils # (Manual) INR D-Dimer ABG pH POC ABG pCO2 POC ABG pO2 ABG pO2 ABG HCO3 ABG O2 Saturation ABG Base Excess ABG Hemoglobin ABG Oxyhemoglobin ABG Sodium ABG Potassium ABG Chloride ABG Glucose Oxyhemoglobin Carboxyhemoglobin Sodium Potassium Chloride Carbon Dioxide BUN Creatinine Glucose POC Glucose 164 H 198 H 196 H Hemoglobin A1c Lactic Acid Calcium Phosphorus Magnesium Ferritin Total Bilirubin AST ALT Lactate Dehydrogenase C-Reactive Protein Albumin Triglycerides Arterial Blood Glucose Arterial Blood Ionized Calcium Urine Creatinine Coronavirus (PCR) Crossmatch 01/29/21 01/29/21 01/29/21 05:00 05:23 06:00 WBC RBC Hgb Hct MCV MCH MCHC RDW Plt Count Lymph % (Auto) Lymph # (Auto) Seg Neutrophils % Seg Neuts % (Manual) Lymphocytes % (Manual) Nucleated RBC % Seg Neutrophils # Seg Neutrophils # Man Lymphocytes # (Manual) Eosinophils # (Manual) INR D-Dimer ABG pH 7.119 L POC ABG pCO2 87.1 H POC ABG pO2 ABG pO2 ABG HCO3 ABG O2 Saturation ABG Base Excess ABG Hemoglobin ABG Oxyhemoglobin ABG Sodium 152.5 H ABG Potassium 5.7 H ABG Chloride 120.0 H ABG Glucose 217 H Oxyhemoglobin Carboxyhemoglobin Sodium 151 H Potassium 5.9 H D Chloride 117.8 H Carbon Dioxide BUN 54 H Creatinine 2.2 H Glucose 208 H POC Glucose 180 H Hemoglobin A1c Lactic Acid Calcium 7.9 L Phosphorus Magnesium Ferritin Total Bilirubin AST ALT Lactate Dehydrogenase C-Reactive Protein Albumin Triglycerides Arterial Blood Glucose 217 H Arterial Blood Ionized Calcium Urine Creatinine Coronavirus (PCR) Crossmatch 01/29/21 01/29/21 01/29/21 12:29 17:28 18:05 WBC RBC Hgb Hct MCV MCH MCHC RDW Plt Count Lymph % (Auto) Lymph # (Auto) Seg Neutrophils % Seg Neuts % (Manual) Lymphocytes % (Manual) Nucleated RBC % Seg Neutrophils # Seg Neutrophils # Man Lymphocytes # (Manual) Eosinophils # (Manual) INR D-Dimer ABG pH POC ABG pCO2 POC ABG pO2 ABG pO2 ABG HCO3 ABG O2 Saturation ABG Base Excess ABG Hemoglobin ABG Oxyhemoglobin ABG Sodium ABG Potassium ABG Chloride ABG Glucose Oxyhemoglobin Carboxyhemoglobin Sodium 151 H Potassium 5.5 H Chloride 118.2 H Carbon Dioxide BUN 52 H Creatinine 2.2 H Glucose 224 H POC Glucose 181 H 203 H Hemoglobin A1c Lactic Acid Calcium 8.0 L Phosphorus Magnesium Ferritin Total Bilirubin AST ALT Lactate Dehydrogenase C-Reactive Protein Albumin Triglycerides Arterial Blood Glucose Arterial Blood Ionized Calcium Urine Creatinine Coronavirus (PCR) Crossmatch 01/29/21 01/29/21 01/29/21 18:13 23:34 Unknown WBC RBC Hgb Hct MCV 101 H MCH MCHC RDW 15.7 H Plt Count Lymph % (Auto) Lymph # (Auto) Seg Neutrophils % Seg Neuts % (Manual) 95.0 H Lymphocytes % (Manual) 3.0 L Nucleated RBC % Seg Neutrophils # Seg Neutrophils # Man 8.0 H Lymphocytes # (Manual) 0.3 L Eosinophils # (Manual) INR D-Dimer ABG pH 7.223 L POC ABG pCO2 64.8 H POC ABG pO2 63.6 L ABG pO2 ABG HCO3 ABG O2 Saturation ABG Base Excess ABG Hemoglobin ABG Oxyhemoglobin 89.4 L ABG Sodium 152.9 H ABG Potassium 5.3 H ABG Chloride 121.0 H ABG Glucose 227 H Oxyhemoglobin Carboxyhemoglobin Sodium Potassium Chloride Carbon Dioxide BUN Creatinine Glucose POC Glucose 198 H Hemoglobin A1c Lactic Acid Calcium Phosphorus Magnesium Ferritin Total Bilirubin AST ALT Lactate Dehydrogenase C-Reactive Protein Albumin Triglycerides Arterial Blood Glucose 227 H Arterial Blood Ionized Calcium Urine Creatinine Coronavirus (PCR) Crossmatch 01/30/21 01/30/21 01/30/21 04:00 04:00 04:00 WBC RBC Hgb Hct MCV MCH MCHC RDW Plt Count Lymph % (Auto) Lymph # (Auto) Seg Neutrophils % Seg Neuts % (Manual) Lymphocytes % (Manual) Nucleated RBC % Seg Neutrophils # Seg Neutrophils # Man Lymphocytes # (Manual) Eosinophils # (Manual) INR D-Dimer > 41106 H ABG pH POC ABG pCO2 POC ABG pO2 ABG pO2 ABG HCO3 ABG O2 Saturation ABG Base Excess ABG Hemoglobin ABG Oxyhemoglobin ABG Sodium ABG Potassium ABG Chloride ABG Glucose Oxyhemoglobin Carboxyhemoglobin Sodium Potassium Chloride Carbon Dioxide BUN Creatinine Glucose 234 H POC Glucose Hemoglobin A1c Lactic Acid Calcium Phosphorus Magnesium Ferritin 763.9 H Total Bilirubin AST ALT Lactate Dehydrogenase 424 H C-Reactive Protein 23.90 H Albumin Triglycerides Arterial Blood Glucose Arterial Blood Ionized Calcium Urine Creatinine Coronavirus (PCR) Crossmatch 01/30/21 01/30/21 01/30/21 04:24 05:00 05:16 WBC RBC 3.57 L Hgb 11.3 L Hct 35.4 L MCV 99 H MCH MCHC RDW 15.6 H Plt Count Lymph % (Auto) Lymph # (Auto) Seg Neutrophils % Seg Neuts % (Manual) 97.0 H Lymphocytes % (Manual) 1.0 L Nucleated RBC % Seg Neutrophils # Seg Neutrophils # Man 8.6 H Lymphocytes # (Manual) 0.1 L Eosinophils # (Manual) INR D-Dimer ABG pH 7.235 L POC ABG pCO2 69.7 H POC ABG pO2 61.0 L ABG pO2 ABG HCO3 ABG O2 Saturation ABG Base Excess ABG Hemoglobin ABG Oxyhemoglobin 89 L ABG Sodium 154.2 H ABG Potassium 5.4 H ABG Chloride 121.0 H ABG Glucose 247 H Oxyhemoglobin Carboxyhemoglobin Sodium Potassium Chloride Carbon Dioxide BUN Creatinine Glucose POC Glucose 238 H Hemoglobin A1c Lactic Acid Calcium Phosphorus Magnesium Ferritin Total Bilirubin AST ALT Lactate Dehydrogenase C-Reactive Protein Albumin Triglycerides Arterial Blood Glucose 247 H Arterial Blood Ionized Calcium Urine Creatinine Coronavirus (PCR) Crossmatch 01/30/21 01/30/21 01/30/21 06:00 11:28 12:00 WBC RBC Hgb Hct MCV MCH MCHC RDW Plt Count Lymph % (Auto) Lymph # (Auto) Seg Neutrophils % Seg Neuts % (Manual) Lymphocytes % (Manual) Nucleated RBC % Seg Neutrophils # Seg Neutrophils # Man Lymphocytes # (Manual) Eosinophils # (Manual) INR D-Dimer ABG pH POC ABG pCO2 POC ABG pO2 ABG pO2 ABG HCO3 ABG O2 Saturation ABG Base Excess ABG Hemoglobin ABG Oxyhemoglobin ABG Sodium ABG Potassium ABG Chloride ABG Glucose Oxyhemoglobin Carboxyhemoglobin Sodium 152 H Potassium 5.3 H Chloride 120.5 H Carbon Dioxide BUN 50 H Creatinine 2.3 H Glucose 239 H POC Glucose 153 H Hemoglobin A1c Lactic Acid Calcium 8.2 L Phosphorus Magnesium 2.60 H Ferritin Total Bilirubin AST ALT Lactate Dehydrogenase C-Reactive Protein Albumin Triglycerides 293 H Arterial Blood Glucose Arterial Blood Ionized Calcium Urine Creatinine 53.0 H Coronavirus (PCR) Crossmatch 01/30/21 01/30/21 01/31/21 18:49 23:06 04:00 WBC RBC Hgb Hct MCV MCH MCHC RDW Plt Count Lymph % (Auto) Lymph # (Auto) Seg Neutrophils % Seg Neuts % (Manual) Lymphocytes % (Manual) Nucleated RBC % Seg Neutrophils # Seg Neutrophils # Man Lymphocytes # (Manual) Eosinophils # (Manual) INR D-Dimer ABG pH POC ABG pCO2 POC ABG pO2 ABG pO2 ABG HCO3 ABG O2 Saturation ABG Base Excess ABG Hemoglobin ABG Oxyhemoglobin ABG Sodium ABG Potassium ABG Chloride ABG Glucose Oxyhemoglobin Carboxyhemoglobin Sodium 156 H Potassium 5.9 H Chloride 122.6 H Carbon Dioxide BUN 61 H Creatinine 3.2 H Glucose 205 H POC Glucose 220 H 192 H Hemoglobin A1c Lactic Acid Calcium 8.0 L Phosphorus Magnesium Ferritin Total Bilirubin AST ALT Lactate Dehydrogenase C-Reactive Protein Albumin Triglycerides Arterial Blood Glucose Arterial Blood Ionized Calcium Urine Creatinine Coronavirus (PCR) Crossmatch 01/31/21 01/31/21 01/31/21 04:40 05:17 11:33 WBC RBC Hgb Hct MCV MCH MCHC RDW Plt Count Lymph % (Auto) Lymph # (Auto) Seg Neutrophils % Seg Neuts % (Manual) Lymphocytes % (Manual) Nucleated RBC % Seg Neutrophils # Seg Neutrophils # Man Lymphocytes # (Manual) Eosinophils # (Manual) INR D-Dimer ABG pH 7.161 L* POC ABG pCO2 POC ABG pO2 ABG pO2 142.2 H ABG HCO3 28.3 H ABG O2 Saturation ABG Base Excess -3.2 L ABG Hemoglobin ABG Oxyhemoglobin ABG Sodium ABG Potassium ABG Chloride ABG Glucose Oxyhemoglobin Carboxyhemoglobin Sodium Potassium Chloride Carbon Dioxide BUN Creatinine Glucose POC Glucose 200 H 167 H Hemoglobin A1c Lactic Acid Calcium Phosphorus Magnesium Ferritin Total Bilirubin AST ALT Lactate Dehydrogenase C-Reactive Protein Albumin Triglycerides Arterial Blood Glucose Arterial Blood Ionized Calcium Urine Creatinine Coronavirus (PCR) Crossmatch 01/31/21 01/31/21 01/31/21 14:00 17:10 23:24 WBC RBC Hgb Hct MCV MCH MCHC RDW Plt Count Lymph % (Auto) Lymph # (Auto) Seg Neutrophils % Seg Neuts % (Manual) Lymphocytes % (Manual) Nucleated RBC % Seg Neutrophils # Seg Neutrophils # Man Lymphocytes # (Manual) Eosinophils # (Manual) INR D-Dimer ABG pH 7.205 L POC ABG pCO2 POC ABG pO2 ABG pO2 90.9 H ABG HCO3 26.5 H ABG O2 Saturation ABG Base Excess -2.7 L ABG Hemoglobin 12.3 L ABG Oxyhemoglobin ABG Sodium ABG Potassium ABG Chloride ABG Glucose Oxyhemoglobin 93.9 L Carboxyhemoglobin Sodium Potassium Chloride Carbon Dioxide BUN Creatinine Glucose POC Glucose 190 H 203 H Hemoglobin A1c Lactic Acid Calcium Phosphorus Magnesium Ferritin Total Bilirubin AST ALT Lactate Dehydrogenase C-Reactive Protein Albumin Triglycerides Arterial Blood Glucose Arterial Blood Ionized Calcium Urine Creatinine Coronavirus (PCR) Crossmatch 02/01/21 02/01/21 02/01/21 05:15 06:22 10:20 WBC RBC Hgb Hct MCV MCH MCHC RDW Plt Count Lymph % (Auto) Lymph # (Auto) Seg Neutrophils % Seg Neuts % (Manual) Lymphocytes % (Manual) Nucleated RBC % Seg Neutrophils # Seg Neutrophils # Man Lymphocytes # (Manual) Eosinophils # (Manual) INR D-Dimer ABG pH 6.920 L* 7.116 L* POC ABG pCO2 POC ABG pO2 ABG pO2 102.9 H 113.1 H ABG HCO3 28.2 H ABG O2 Saturation 92.9 L ABG Base Excess -6.9 L -5.8 L ABG Hemoglobin 11.6 L 9.5 L ABG Oxyhemoglobin ABG Sodium ABG Potassium ABG Chloride ABG Glucose Oxyhemoglobin 90.5 L 94.6 L Carboxyhemoglobin Sodium Potassium Chloride Carbon Dioxide BUN Creatinine Glucose POC Glucose 221 H Hemoglobin A1c Lactic Acid Calcium Phosphorus Magnesium Ferritin Total Bilirubin AST ALT Lactate Dehydrogenase C-Reactive Protein Albumin Triglycerides Arterial Blood Glucose Arterial Blood Ionized Calcium Urine Creatinine Coronavirus (PCR) Crossmatch 02/01/21 02/01/21 02/01/21 11:12 12:35 16:00 WBC RBC Hgb Hct MCV MCH MCHC RDW Plt Count Lymph % (Auto) Lymph # (Auto) Seg Neutrophils % Seg Neuts % (Manual) Lymphocytes % (Manual) Nucleated RBC % Seg Neutrophils # Seg Neutrophils # Man Lymphocytes # (Manual) Eosinophils # (Manual) INR D-Dimer ABG pH 7.155 L* POC ABG pCO2 POC ABG pO2 ABG pO2 94.6 H ABG HCO3 ABG O2 Saturation ABG Base Excess -6.5 L ABG Hemoglobin 13.1 L ABG Oxyhemoglobin ABG Sodium ABG Potassium ABG Chloride ABG Glucose Oxyhemoglobin 93.7 L Carboxyhemoglobin Sodium 155 H Potassium 5.1 H Chloride 120.5 H Carbon Dioxide BUN 90 H Creatinine 6.1 H D Glucose 238 H POC Glucose 207 H Hemoglobin A1c Lactic Acid Calcium 7.4 L Phosphorus Magnesium Ferritin Total Bilirubin AST ALT Lactate Dehydrogenase C-Reactive Protein Albumin Triglycerides Arterial Blood Glucose Arterial Blood Ionized Calcium Urine Creatinine Coronavirus (PCR) Crossmatch 02/01/21 02/01/21 02/02/21 17:10 23:47 04:04 WBC RBC 3.02 L Hgb 9.8 L Hct 30.7 L MCV 102 H MCH MCHC RDW 15.6 H Plt Count Lymph % (Auto) 4.2 L Lymph # (Auto) 0.3 L Seg Neutrophils % Seg Neuts % (Manual) Lymphocytes % (Manual) Nucleated RBC % Seg Neutrophils # Seg Neutrophils # Man Lymphocytes # (Manual) Eosinophils # (Manual) INR D-Dimer ABG pH POC ABG pCO2 POC ABG pO2 ABG pO2 ABG HCO3 ABG O2 Saturation ABG Base Excess ABG Hemoglobin ABG Oxyhemoglobin ABG Sodium ABG Potassium ABG Chloride ABG Glucose Oxyhemoglobin Carboxyhemoglobin Sodium Potassium Chloride Carbon Dioxide BUN Creatinine Glucose POC Glucose 238 H 235 H Hemoglobin A1c Lactic Acid Calcium Phosphorus Magnesium Ferritin Total Bilirubin AST ALT Lactate Dehydrogenase C-Reactive Protein Albumin Triglycerides Arterial Blood Glucose Arterial Blood Ionized Calcium Urine Creatinine Coronavirus (PCR) Crossmatch 02/02/21 02/02/21 02/02/21 05:18 05:35 11:28 WBC RBC Hgb Hct MCV MCH MCHC RDW Plt Count Lymph % (Auto) Lymph # (Auto) Seg Neutrophils % Seg Neuts % (Manual) Lymphocytes % (Manual) Nucleated RBC % Seg Neutrophils # Seg Neutrophils # Man Lymphocytes # (Manual) Eosinophils # (Manual) INR D-Dimer ABG pH 7.195 L* POC ABG pCO2 POC ABG pO2 ABG pO2 72.5 L ABG HCO3 ABG O2 Saturation 91.2 L ABG Base Excess -5.3 L ABG Hemoglobin 6.0 L ABG Oxyhemoglobin ABG Sodium ABG Potassium ABG Chloride ABG Glucose Oxyhemoglobin 89.1 L Carboxyhemoglobin Sodium Potassium Chloride 110.4 H Carbon Dioxide BUN 92 H Creatinine Glucose POC Glucose 239 H Hemoglobin A1c Lactic Acid Calcium Phosphorus Magnesium Ferritin Total Bilirubin AST ALT Lactate Dehydrogenase C-Reactive Protein Albumin Triglycerides Arterial Blood Glucose Arterial Blood Ionized Calcium Urine Creatinine Coronavirus (PCR) Crossmatch 02/02/21 02/02/21 02/02/21 11:53 16:00 18:04 WBC RBC Hgb Hct MCV MCH MCHC RDW Plt Count Lymph % (Auto) Lymph # (Auto) Seg Neutrophils % Seg Neuts % (Manual) Lymphocytes % (Manual) Nucleated RBC % Seg Neutrophils # Seg Neutrophils # Man Lymphocytes # (Manual) Eosinophils # (Manual) INR D-Dimer ABG pH POC ABG pCO2 POC ABG pO2 ABG pO2 ABG HCO3 ABG O2 Saturation ABG Base Excess ABG Hemoglobin ABG Oxyhemoglobin ABG Sodium ABG Potassium ABG Chloride ABG Glucose Oxyhemoglobin Carboxyhemoglobin Sodium Potassium Chloride Carbon Dioxide BUN Creatinine Glucose POC Glucose 248 H 199 H Hemoglobin A1c 6.3 H Lactic Acid Calcium Phosphorus Magnesium Ferritin Total Bilirubin AST ALT Lactate Dehydrogenase C-Reactive Protein Albumin Triglycerides Arterial Blood Glucose Arterial Blood Ionized Calcium Urine Creatinine Coronavirus (PCR) Crossmatch 02/02/21 02/03/21 02/03/21 23:31 03:12 04:10 WBC RBC 3.06 L Hgb 9.7 L Hct 30.4 L MCV 99 H MCH MCHC RDW 15.3 H Plt Count Lymph % (Auto) 6.1 L Lymph # (Auto) 0.5 L Seg Neutrophils % 86.1 H Seg Neuts % (Manual) Lymphocytes % (Manual) Nucleated RBC % Seg Neutrophils # Seg Neutrophils # Man Lymphocytes # (Manual) Eosinophils # (Manual) INR D-Dimer ABG pH 7.199 L POC ABG pCO2 48.3 H POC ABG pO2 68.3 L ABG pO2 ABG HCO3 ABG O2 Saturation ABG Base Excess ABG Hemoglobin 10.2 L ABG Oxyhemoglobin 89.2 L ABG Sodium 155.0 H ABG Potassium 4.6 H ABG Chloride 121.0 H ABG Glucose 166 H Oxyhemoglobin Carboxyhemoglobin 0.3 L Sodium Potassium Chloride Carbon Dioxide BUN Creatinine Glucose POC Glucose 200 H Hemoglobin A1c Lactic Acid Calcium Phosphorus Magnesium Ferritin Total Bilirubin AST ALT Lactate Dehydrogenase C-Reactive Protein Albumin Triglycerides Arterial Blood Glucose 166 H Arterial Blood Ionized Calcium 4.1 L Urine Creatinine Coronavirus (PCR) Crossmatch 02/03/21 02/03/21 02/03/21 04:10 05:34 11:51 WBC RBC Hgb Hct MCV MCH MCHC RDW Plt Count Lymph % (Auto) Lymph # (Auto) Seg Neutrophils % Seg Neuts % (Manual) Lymphocytes % (Manual) Nucleated RBC % Seg Neutrophils # Seg Neutrophils # Man Lymphocytes # (Manual) Eosinophils # (Manual) INR D-Dimer ABG pH POC ABG pCO2 POC ABG pO2 ABG pO2 ABG HCO3 ABG O2 Saturation ABG Base Excess ABG Hemoglobin ABG Oxyhemoglobin ABG Sodium ABG Potassium ABG Chloride ABG Glucose Oxyhemoglobin Carboxyhemoglobin Sodium 154 H D Potassium Chloride 116.7 H Carbon Dioxide 20 L BUN 130 H Creatinine 9.2 H D Glucose 160 H POC Glucose 130 H 154 H Hemoglobin A1c Lactic Acid Calcium 6.7 L Phosphorus 8.60 H Magnesium Ferritin Total Bilirubin AST ALT Lactate Dehydrogenase C-Reactive Protein Albumin Triglycerides Arterial Blood Glucose Arterial Blood Ionized Calcium Urine Creatinine Coronavirus (PCR) Crossmatch 02/03/21 02/03/21 02/04/21 16:49 23:22 03:48 WBC RBC Hgb Hct MCV MCH MCHC RDW Plt Count Lymph % (Auto) Lymph # (Auto) Seg Neutrophils % Seg Neuts % (Manual) Lymphocytes % (Manual) Nucleated RBC % Seg Neutrophils # Seg Neutrophils # Man Lymphocytes # (Manual) Eosinophils # (Manual) INR D-Dimer ABG pH 7.201 L POC ABG pCO2 54.5 H POC ABG pO2 74.0 L ABG pO2 ABG HCO3 ABG O2 Saturation ABG Base Excess ABG Hemoglobin 9.7 L ABG Oxyhemoglobin 91.1 L ABG Sodium 146.2 H ABG Potassium ABG Chloride 114.0 H ABG Glucose 155 H Oxyhemoglobin Carboxyhemoglobin Sodium Potassium Chloride Carbon Dioxide BUN Creatinine Glucose POC Glucose 164 H 152 H Hemoglobin A1c Lactic Acid Calcium Phosphorus Magnesium Ferritin Total Bilirubin AST ALT Lactate Dehydrogenase C-Reactive Protein Albumin Triglycerides Arterial Blood Glucose 155 H Arterial Blood Ionized Calcium 3.9 L Urine Creatinine Coronavirus (PCR) Crossmatch 02/04/21 02/04/21 02/04/21 04:45 04:45 04:45 WBC RBC 2.75 L Hgb 9.1 L Hct 26.9 L MCV 98 H MCH 33 H MCHC RDW Plt Count Lymph % (Auto) 6.8 L Lymph # (Auto) 0.5 L Seg Neutrophils % 87.2 H Seg Neuts % (Manual) Lymphocytes % (Manual) Nucleated RBC % Seg Neutrophils # Seg Neutrophils # Man Lymphocytes # (Manual) Eosinophils # (Manual) INR D-Dimer ABG pH POC ABG pCO2 POC ABG pO2 ABG pO2 ABG HCO3 ABG O2 Saturation ABG Base Excess ABG Hemoglobin ABG Oxyhemoglobin ABG Sodium ABG Potassium ABG Chloride ABG Glucose Oxyhemoglobin Carboxyhemoglobin Sodium 149 H Potassium Chloride 111.5 H Carbon Dioxide BUN 99 H Creatinine 8.5 H Glucose 139 H POC Glucose Hemoglobin A1c Lactic Acid Calcium 6.8 L Phosphorus 8.40 H Magnesium Ferritin Total Bilirubin AST ALT Lactate Dehydrogenase C-Reactive Protein Albumin Triglycerides Arterial Blood Glucose Arterial Blood Ionized Calcium Urine Creatinine Coronavirus (PCR) Crossmatch 02/04/21 02/04/21 02/04/21 06:05 11:44 18:00 WBC RBC Hgb Hct MCV MCH MCHC RDW Plt Count Lymph % (Auto) Lymph # (Auto) Seg Neutrophils % Seg Neuts % (Manual) Lymphocytes % (Manual) Nucleated RBC % Seg Neutrophils # Seg Neutrophils # Man Lymphocytes # (Manual) Eosinophils # (Manual) INR D-Dimer ABG pH POC ABG pCO2 POC ABG pO2 ABG pO2 ABG HCO3 ABG O2 Saturation ABG Base Excess ABG Hemoglobin ABG Oxyhemoglobin ABG Sodium ABG Potassium ABG Chloride ABG Glucose Oxyhemoglobin Carboxyhemoglobin Sodium Potassium Chloride Carbon Dioxide BUN Creatinine Glucose POC Glucose 138 H 129 H 163 H Hemoglobin A1c Lactic Acid Calcium Phosphorus Magnesium Ferritin Total Bilirubin AST ALT Lactate Dehydrogenase C-Reactive Protein Albumin Triglycerides Arterial Blood Glucose Arterial Blood Ionized Calcium Urine Creatinine Coronavirus (PCR) Crossmatch 02/04/21 02/05/21 02/05/21 23:48 01:50 01:50 WBC RBC 2.43 L Hgb 8.3 L Hct 23.6 L MCV 97 H MCH 34 H MCHC 35 H RDW Plt Count 137 L Lymph % (Auto) 8.4 L Lymph # (Auto) 0.6 L Seg Neutrophils % 86.1 H Seg Neuts % (Manual) Lymphocytes % (Manual) Nucleated RBC % Seg Neutrophils # Seg Neutrophils # Man Lymphocytes # (Manual) Eosinophils # (Manual) INR D-Dimer ABG pH POC ABG pCO2 POC ABG pO2 ABG pO2 ABG HCO3 ABG O2 Saturation ABG Base Excess ABG Hemoglobin ABG Oxyhemoglobin ABG Sodium ABG Potassium ABG Chloride ABG Glucose Oxyhemoglobin Carboxyhemoglobin Sodium Potassium Chloride Carbon Dioxide BUN Creatinine Glucose POC Glucose 157 H Hemoglobin A1c Lactic Acid Calcium Phosphorus 5.60 H D Magnesium Ferritin Total Bilirubin AST ALT Lactate Dehydrogenase C-Reactive Protein Albumin Triglycerides Arterial Blood Glucose Arterial Blood Ionized Calcium Urine Creatinine Coronavirus (PCR) Crossmatch 02/05/21 02/05/21 02/05/21 03:44 05:27 09:15 WBC RBC Hgb Hct MCV MCH MCHC RDW Plt Count Lymph % (Auto) Lymph # (Auto) Seg Neutrophils % Seg Neuts % (Manual) Lymphocytes % (Manual) Nucleated RBC % Seg Neutrophils # Seg Neutrophils # Man Lymphocytes # (Manual) Eosinophils # (Manual) INR D-Dimer ABG pH 7.202 L POC ABG pCO2 63.7 H POC ABG pO2 69.0 L ABG pO2 ABG HCO3 ABG O2 Saturation ABG Base Excess ABG Hemoglobin 9.4 L ABG Oxyhemoglobin ABG Sodium ABG Potassium ABG Chloride 108.0 H ABG Glucose 186 H Oxyhemoglobin Carboxyhemoglobin Sodium Potassium Chloride Carbon Dioxide BUN 78 H Creatinine 8.0 H Glucose 163 H POC Glucose 157 H Hemoglobin A1c Lactic Acid Calcium 6.3 L Phosphorus Magnesium Ferritin Total Bilirubin AST ALT Lactate Dehydrogenase C-Reactive Protein Albumin Triglycerides Arterial Blood Glucose 186 H Arterial Blood Ionized Calcium 3.9 L Urine Creatinine Coronavirus (PCR) Crossmatch 02/05/21 02/05/21 02/05/21 11:47 17:39 23:40 WBC RBC Hgb Hct MCV MCH MCHC RDW Plt Count Lymph % (Auto) Lymph # (Auto) Seg Neutrophils % Seg Neuts % (Manual) Lymphocytes % (Manual) Nucleated RBC % Seg Neutrophils # Seg Neutrophils # Man Lymphocytes # (Manual) Eosinophils # (Manual) INR D-Dimer ABG pH 7.273 L POC ABG pCO2 62.1 H POC ABG pO2 72.0 L ABG pO2 ABG HCO3 ABG O2 Saturation ABG Base Excess ABG Hemoglobin 9.1 L ABG Oxyhemoglobin 91.3 L ABG Sodium ABG Potassium 3.1 L ABG Chloride ABG Glucose 125 H Oxyhemoglobin Carboxyhemoglobin Sodium Potassium Chloride Carbon Dioxide BUN Creatinine Glucose POC Glucose 126 H 126 H Hemoglobin A1c Lactic Acid Calcium Phosphorus Magnesium Ferritin Total Bilirubin AST ALT Lactate Dehydrogenase C-Reactive Protein Albumin Triglycerides Arterial Blood Glucose 125 H Arterial Blood Ionized Calcium 4.0 L Urine Creatinine Coronavirus (PCR) Crossmatch 02/06/21 02/06/21 02/06/21 04:30 04:57 09:45 WBC RBC Hgb Hct MCV MCH MCHC RDW Plt Count Lymph % (Auto) Lymph # (Auto) Seg Neutrophils % Seg Neuts % (Manual) Lymphocytes % (Manual) Nucleated RBC % Seg Neutrophils # Seg Neutrophils # Man Lymphocytes # (Manual) Eosinophils # (Manual) INR D-Dimer ABG pH 7.159 L 7.138 L* POC ABG pCO2 76.3 H POC ABG pO2 66.9 L ABG pO2 ABG HCO3 ABG O2 Saturation 93.4 L ABG Base Excess -6.0 L ABG Hemoglobin 11.2 L 11.7 L ABG Oxyhemoglobin 88.2 L ABG Sodium ABG Potassium ABG Chloride ABG Glucose 134 H Oxyhemoglobin 91.2 L Carboxyhemoglobin Sodium Potassium Chloride Carbon Dioxide BUN Creatinine Glucose POC Glucose 124 H Hemoglobin A1c Lactic Acid Calcium Phosphorus Magnesium Ferritin Total Bilirubin AST ALT Lactate Dehydrogenase C-Reactive Protein Albumin Triglycerides Arterial Blood Glucose 134 H Arterial Blood Ionized Calcium 3.9 L Urine Creatinine Coronavirus (PCR) Crossmatch 02/06/21 02/06/2121 11:11 17:00 17:00 WBC RBC Hgb Hct MCV MCH MCHC RDW Plt Count Lymph % (Auto) Lymph # (Auto) Seg Neutrophils % Seg Neuts % (Manual) Lymphocytes % (Manual) Nucleated RBC % Seg Neutrophils # Seg Neutrophils # Man Lymphocytes # (Manual) Eosinophils # (Manual) INR D-Dimer ABG pH 7.158 L* POC ABG pCO2 POC ABG pO2 ABG pO2 109.8 H ABG HCO3 28.7 H ABG O2 Saturation ABG Base Excess -2.5 L ABG Hemoglobin ABG Oxyhemoglobin ABG Sodium ABG Potassium ABG Chloride ABG Glucose Oxyhemoglobin 94.5 L Carboxyhemoglobin Sodium Potassium Chloride Carbon Dioxide BUN Creatinine Glucose POC Glucose 120 H Hemoglobin A1c Lactic Acid Calcium Phosphorus Magnesium Ferritin Total Bilirubin AST ALT Lactate Dehydrogenase C-Reactive Protein Albumin Triglycerides 503 H Arterial Blood Glucose Arterial Blood Ionized Calcium Urine Creatinine Coronavirus (PCR) Crossmatch 02/06/21 02/06/21 02/06/21 17:28 20:16 Unknown WBC 13.5 H RBC 2.98 L Hgb 9.3 L Hct 28.6 L MCV 96 H MCH MCHC RDW Plt Count Lymph % (Auto) Lymph # (Auto) Seg Neutrophils % Seg Neuts % (Manual) 87.0 H Lymphocytes % (Manual) 7.0 L Nucleated RBC % Seg Neutrophils # Seg Neutrophils # Man 11.7 H Lymphocytes # (Manual) 0.9 L Eosinophils # (Manual) 0.5 H INR D-Dimer ABG pH POC ABG pCO2 POC ABG pO2 ABG pO2 ABG HCO3 ABG O2 Saturation ABG Base Excess ABG Hemoglobin ABG Oxyhemoglobin ABG Sodium ABG Potassium ABG Chloride ABG Glucose Oxyhemoglobin Carboxyhemoglobin Sodium Potassium Chloride Carbon Dioxide BUN Creatinine Glucose POC Glucose 147 H 164 H Hemoglobin A1c Lactic Acid Calcium Phosphorus Magnesium Ferritin Total Bilirubin AST ALT Lactate Dehydrogenase C-Reactive Protein Albumin Triglycerides Arterial Blood Glucose Arterial Blood Ionized Calcium Urine Creatinine Coronavirus (PCR) Crossmatch 02/06/21 02/07/21 02/07/21 Unknown 01:21 04:00 WBC 12.0 H RBC 2.61 L Hgb 8.2 L Hct 24.5 L MCV MCH MCHC RDW Plt Count Lymph % (Auto) 8.9 L Lymph # (Auto) 1.1 L Seg Neutrophils % 86.3 H Seg Neuts % (Manual) Lymphocytes % (Manual) Nucleated RBC % Seg Neutrophils # 10.3 H Seg Neutrophils # Man Lymphocytes # (Manual) Eosinophils # (Manual) INR D-Dimer ABG pH POC ABG pCO2 POC ABG pO2 ABG pO2 ABG HCO3 ABG O2 Saturation ABG Base Excess ABG Hemoglobin ABG Oxyhemoglobin ABG Sodium ABG Potassium ABG Chloride ABG Glucose Oxyhemoglobin Carboxyhemoglobin Sodium Potassium 3.5 L Chloride Carbon Dioxide BUN 58 H Creatinine 6.6 H Glucose 107 H POC Glucose 173 H Hemoglobin A1c Lactic Acid Calcium 6.7 L Phosphorus 8.00 H D Magnesium Ferritin Total Bilirubin AST ALT Lactate Dehydrogenase C-Reactive Protein Albumin Triglycerides Arterial Blood Glucose Arterial Blood Ionized Calcium Urine Creatinine Coronavirus (PCR) Crossmatch 02/07/21 02/07/21 02/07/21 04:00 04:45 11:49 WBC RBC Hgb Hct MCV MCH MCHC RDW Plt Count Lymph % (Auto) Lymph # (Auto) Seg Neutrophils % Seg Neuts % (Manual) Lymphocytes % (Manual) Nucleated RBC % Seg Neutrophils # Seg Neutrophils # Man Lymphocytes # (Manual) Eosinophils # (Manual) INR D-Dimer ABG pH 7.287 L POC ABG pCO2 64.8 H POC ABG pO2 74.0 L ABG pO2 ABG HCO3 ABG O2 Saturation ABG Base Excess ABG Hemoglobin 9.1 L ABG Oxyhemoglobin 92.0 L ABG Sodium ABG Potassium 2.8 L ABG Chloride ABG Glucose 226 H Oxyhemoglobin Carboxyhemoglobin Sodium Potassium Chloride Carbon Dioxide BUN Creatinine Glucose POC Glucose 170 H Hemoglobin A1c Lactic Acid Calcium Phosphorus 5.50 H D Magnesium Ferritin Total Bilirubin AST ALT Lactate Dehydrogenase C-Reactive Protein Albumin Triglycerides Arterial Blood Glucose 226 H Arterial Blood Ionized Calcium 3.7 L Urine Creatinine Coronavirus (PCR) Crossmatch 02/07/21 02/07/21 02/07/21 13:48 17:45 23:02 WBC RBC Hgb Hct MCV MCH MCHC RDW Plt Count Lymph % (Auto) Lymph # (Auto) Seg Neutrophils % Seg Neuts % (Manual) Lymphocytes % (Manual) Nucleated RBC % Seg Neutrophils # Seg Neutrophils # Man Lymphocytes # (Manual) Eosinophils # (Manual) INR D-Dimer ABG pH POC ABG pCO2 POC ABG pO2 ABG pO2 ABG HCO3 ABG O2 Saturation ABG Base Excess ABG Hemoglobin ABG Oxyhemoglobin ABG Sodium ABG Potassium ABG Chloride ABG Glucose Oxyhemoglobin Carboxyhemoglobin Sodium 136 L Potassium 2.6 L* D Chloride 95.1 L Carbon Dioxide 33 H D BUN 30 H Creatinine 3.6 H Glucose 184 H POC Glucose 172 H 172 H Hemoglobin A1c Lactic Acid Calcium 6.9 L Phosphorus Magnesium Ferritin Total Bilirubin AST ALT Lactate Dehydrogenase C-Reactive Protein Albumin Triglycerides Arterial Blood Glucose Arterial Blood Ionized Calcium Urine Creatinine Coronavirus (PCR) Crossmatch 02/08/21 02/08/21 02/08/21 05:22 06:00 06:00 WBC RBC 2.21 L Hgb 7.2 L Hct 21.0 L MCV 95 H MCH MCHC RDW Plt Count Lymph % (Auto) Lymph # (Auto) Seg Neutrophils % Seg Neuts % (Manual) 87.0 H Lymphocytes % (Manual) 4.0 L Nucleated RBC % Seg Neutrophils # Seg Neutrophils # Man 8.5 H Lymphocytes # (Manual) 0.4 L Eosinophils # (Manual) INR D-Dimer ABG pH POC ABG pCO2 POC ABG pO2 ABG pO2 ABG HCO3 ABG O2 Saturation ABG Base Excess ABG Hemoglobin ABG Oxyhemoglobin ABG Sodium ABG Potassium ABG Chloride ABG Glucose Oxyhemoglobin Carboxyhemoglobin Sodium 136 L Potassium 2.4 L* Chloride 93.1 L Carbon Dioxide 36 H BUN 43 H Creatinine 5.4 H Glucose 167 H POC Glucose 162 H Hemoglobin A1c Lactic Acid Calcium 6.3 L Phosphorus Magnesium Ferritin Total Bilirubin AST ALT Lactate Dehydrogenase C-Reactive Protein Albumin Triglycerides Arterial Blood Glucose Arterial Blood Ionized Calcium Urine Creatinine Coronavirus (PCR) Crossmatch 02/08/21 02/08/21 02/08/21 11:44 17:53 18:56 WBC RBC Hgb Hct MCV MCH MCHC RDW Plt Count Lymph % (Auto) Lymph # (Auto) Seg Neutrophils % Seg Neuts % (Manual) Lymphocytes % (Manual) Nucleated RBC % Seg Neutrophils # Seg Neutrophils # Man Lymphocytes # (Manual) Eosinophils # (Manual) INR D-Dimer ABG pH POC ABG pCO2 POC ABG pO2 ABG pO2 ABG HCO3 ABG O2 Saturation ABG Base Excess ABG Hemoglobin ABG Oxyhemoglobin ABG Sodium ABG Potassium ABG Chloride ABG Glucose Oxyhemoglobin Carboxyhemoglobin Sodium Potassium 2.9 L* D Chloride Carbon Dioxide BUN Creatinine Glucose POC Glucose 164 H 154 H Hemoglobin A1c Lactic Acid Calcium Phosphorus Magnesium Ferritin Total Bilirubin AST ALT Lactate Dehydrogenase C-Reactive Protein Albumin Triglycerides Arterial Blood Glucose Arterial Blood Ionized Calcium Urine Creatinine Coronavirus (PCR) Crossmatch 02/08/21 02/08/21 02/09/21 23:24 23:58 03:21 WBC RBC Hgb Hct MCV MCH MCHC RDW Plt Count Lymph % (Auto) Lymph # (Auto) Seg Neutrophils % Seg Neuts % (Manual) Lymphocytes % (Manual) Nucleated RBC % Seg Neutrophils # Seg Neutrophils # Man Lymphocytes # (Manual) Eosinophils # (Manual) INR D-Dimer ABG pH 7.319 L POC ABG pCO2 63.3 H 68.3 H POC ABG pO2 71.2 L 76.5 L ABG pO2 ABG HCO3 ABG O2 Saturation ABG Base Excess ABG Hemoglobin 8.2 L 7.0 L ABG Oxyhemoglobin 91.8 L 92.2 L ABG Sodium 134.6 L 133.0 L ABG Potassium 2.3 L 3.1 L ABG Chloride 96.0 L 95.0 L ABG Glucose 184 H 154 H Oxyhemoglobin Carboxyhemoglobin Sodium Potassium Chloride Carbon Dioxide BUN Creatinine Glucose POC Glucose 152 H Hemoglobin A1c Lactic Acid Calcium Phosphorus Magnesium Ferritin Total Bilirubin AST ALT Lactate Dehydrogenase C-Reactive Protein Albumin Triglycerides Arterial Blood Glucose 184 H 154 H Arterial Blood Ionized Calcium 3.6 L 3.5 L Urine Creatinine Coronavirus (PCR) Crossmatch 02/09/21 02/09/21 02/09/21 05:10 05:10 06:04 WBC RBC 2.14 L Hgb 7.0 L Hct 20.5 L MCV 96 H MCH 33 H MCHC RDW Plt Count Lymph % (Auto) Lymph # (Auto) Seg Neutrophils % Seg Neuts % (Manual) 82.0 H Lymphocytes % (Manual) 9.0 L Nucleated RBC % 1.0 H Seg Neutrophils # Seg Neutrophils # Man 8.9 H Lymphocytes # (Manual) 1.0 L Eosinophils # (Manual) INR D-Dimer ABG pH POC ABG pCO2 POC ABG pO2 ABG pO2 ABG HCO3 ABG O2 Saturation ABG Base Excess ABG Hemoglobin ABG Oxyhemoglobin ABG Sodium ABG Potassium ABG Chloride ABG Glucose Oxyhemoglobin Carboxyhemoglobin Sodium 135 L Potassium 3.2 L Chloride 91.0 L Carbon Dioxide 32 H BUN 54 H Creatinine 6.6 H Glucose 163 H POC Glucose 149 H Hemoglobin A1c Lactic Acid Calcium 6.2 L Phosphorus Magnesium Ferritin Total Bilirubin AST ALT Lactate Dehydrogenase C-Reactive Protein Albumin Triglycerides Arterial Blood Glucose Arterial Blood Ionized Calcium Urine Creatinine Coronavirus (PCR) Crossmatch 02/09/21 02/09/21 02/09/21 12:02 13:32 13:40 WBC RBC Hgb Hct MCV MCH MCHC RDW Plt Count Lymph % (Auto) Lymph # (Auto) Seg Neutrophils % Seg Neuts % (Manual) Lymphocytes % (Manual) Nucleated RBC % Seg Neutrophils # Seg Neutrophils # Man Lymphocytes # (Manual) Eosinophils # (Manual) INR D-Dimer ABG pH POC ABG pCO2 POC ABG pO2 ABG pO2 ABG HCO3 ABG O2 Saturation ABG Base Excess ABG Hemoglobin ABG Oxyhemoglobin ABG Sodium ABG Potassium ABG Chloride ABG Glucose Oxyhemoglobin Carboxyhemoglobin Sodium Potassium Chloride Carbon Dioxide BUN Creatinine Glucose POC Glucose 147 H Hemoglobin A1c Lactic Acid Calcium Phosphorus Magnesium Ferritin Total Bilirubin AST ALT Lactate Dehydrogenase C-Reactive Protein Albumin Triglycerides 250 H Arterial Blood Glucose Arterial Blood Ionized Calcium Urine Creatinine Coronavirus (PCR) Crossmatch See Detail 02/09/21 02/09/21 02/10/21 18:06 23:42 04:00 WBC RBC Hgb Hct MCV MCH MCHC RDW Plt Count Lymph % (Auto) Lymph # (Auto) Seg Neutrophils % Seg Neuts % (Manual) Lymphocytes % (Manual) Nucleated RBC % Seg Neutrophils # Seg Neutrophils # Man Lymphocytes # (Manual) Eosinophils # (Manual) INR D-Dimer ABG pH POC ABG pCO2 65.8 H POC ABG pO2 68.0 L ABG pO2 ABG HCO3 ABG O2 Saturation ABG Base Excess ABG Hemoglobin 8.3 L ABG Oxyhemoglobin ABG Sodium 132.4 L ABG Potassium 2.9 L ABG Chloride 92.0 L ABG Glucose 174 H Oxyhemoglobin Carboxyhemoglobin Sodium Potassium Chloride Carbon Dioxide BUN Creatinine Glucose POC Glucose 152 H 147 H Hemoglobin A1c Lactic Acid Calcium Phosphorus Magnesium Ferritin Total Bilirubin AST ALT Lactate Dehydrogenase C-Reactive Protein Albumin Triglycerides Arterial Blood Glucose 174 H Arterial Blood Ionized Calcium 3.4 L Urine Creatinine Coronavirus (PCR) Crossmatch 02/10/21 02/10/21 02/10/21 05:32 11:29 14:08 WBC 12.5 H RBC 2.14 L Hgb 6.6 L Hct 20.2 L MCV MCH MCHC RDW Plt Count Lymph % (Auto) Lymph # (Auto) Seg Neutrophils % Seg Neuts % (Manual) Lymphocytes % (Manual) Nucleated RBC % Seg Neutrophils # Seg Neutrophils # Man Lymphocytes # (Manual) Eosinophils # (Manual) INR D-Dimer ABG pH POC ABG pCO2 POC ABG pO2 ABG pO2 ABG HCO3 ABG O2 Saturation ABG Base Excess ABG Hemoglobin ABG Oxyhemoglobin ABG Sodium ABG Potassium ABG Chloride ABG Glucose Oxyhemoglobin Carboxyhemoglobin Sodium Potassium Chloride Carbon Dioxide BUN Creatinine Glucose POC Glucose 167 H 147 H Hemoglobin A1c Lactic Acid Calcium Phosphorus Magnesium Ferritin Total Bilirubin AST ALT Lactate Dehydrogenase C-Reactive Protein Albumin Triglycerides Arterial Blood Glucose Arterial Blood Ionized Calcium Urine Creatinine Coronavirus (PCR) Crossmatch 02/10/21 02/10/21 02/10/21 14:08 18:11 22:32 WBC RBC Hgb 6.4 L Hct 19.1 L* MCV MCH MCHC RDW Plt Count Lymph % (Auto) Lymph # (Auto) Seg Neutrophils % Seg Neuts % (Manual) Lymphocytes % (Manual) Nucleated RBC % Seg Neutrophils # Seg Neutrophils # Man Lymphocytes # (Manual) Eosinophils # (Manual) INR D-Dimer ABG pH POC ABG pCO2 POC ABG pO2 ABG pO2 ABG HCO3 ABG O2 Saturation ABG Base Excess ABG Hemoglobin ABG Oxyhemoglobin ABG Sodium ABG Potassium ABG Chloride ABG Glucose Oxyhemoglobin Carboxyhemoglobin Sodium 136 L Potassium 2.9 L* Chloride 90.2 L Carbon Dioxide 33 H BUN 42 H Creatinine 7.5 H Glucose 155 H POC Glucose 173 H Hemoglobin A1c Lactic Acid Calcium 6.1 L Phosphorus Magnesium Ferritin Total Bilirubin AST ALT Lactate Dehydrogenase C-Reactive Protein Albumin Triglycerides Arterial Blood Glucose Arterial Blood Ionized Calcium Urine Creatinine Coronavirus (PCR) Crossmatch 02/11/21 02/11/21 02/11/21 00:28 04:05 04:30 WBC RBC Hgb Hct MCV MCH MCHC RDW Plt Count Lymph % (Auto) Lymph # (Auto) Seg Neutrophils % Seg Neuts % (Manual) Lymphocytes % (Manual) Nucleated RBC % Seg Neutrophils # Seg Neutrophils # Man Lymphocytes # (Manual) Eosinophils # (Manual) INR D-Dimer ABG pH 7.307 L POC ABG pCO2 72.2 H POC ABG pO2 72.3 L ABG pO2 ABG HCO3 ABG O2 Saturation ABG Base Excess ABG Hemoglobin 8.2 L ABG Oxyhemoglobin ABG Sodium 132.3 L ABG Potassium 3.2 L ABG Chloride 91.0 L ABG Glucose 197 H Oxyhemoglobin Carboxyhemoglobin Sodium 135 L Potassium 3.3 L Chloride 87.1 L Carbon Dioxide 36 H BUN 71 H Creatinine 7.9 H Glucose 263 H POC Glucose 192 H Hemoglobin A1c Lactic Acid Calcium 6.2 L Phosphorus Magnesium Ferritin Total Bilirubin AST ALT Lactate Dehydrogenase C-Reactive Protein Albumin Triglycerides Arterial Blood Glucose 197 H Arterial Blood Ionized Calcium 3.3 L Urine Creatinine Coronavirus (PCR) Crossmatch 02/11/21 02/11/21 02/11/21 04:30 05:47 08:27 WBC RBC 2.22 L Hgb 7.2 L Hct 21.0 L MCV MCH MCHC RDW Plt Count Lymph % (Auto) 8.7 L Lymph # (Auto) 0.9 L Seg Neutrophils % 85.5 H Seg Neuts % (Manual) Lymphocytes % (Manual) Nucleated RBC % Seg Neutrophils # 9.2 H Seg Neutrophils # Man Lymphocytes # (Manual) Eosinophils # (Manual) INR 1.17 H D-Dimer 1930.92 H ABG pH POC ABG pCO2 POC ABG pO2 ABG pO2 ABG HCO3 ABG O2 Saturation ABG Base Excess ABG Hemoglobin ABG Oxyhemoglobin ABG Sodium ABG Potassium ABG Chloride ABG Glucose Oxyhemoglobin Carboxyhemoglobin Sodium Potassium Chloride Carbon Dioxide BUN Creatinine Glucose POC Glucose 189 H Hemoglobin A1c Lactic Acid Calcium Phosphorus Magnesium Ferritin Total Bilirubin AST ALT Lactate Dehydrogenase C-Reactive Protein Albumin Triglycerides Arterial Blood Glucose Arterial Blood Ionized Calcium Urine Creatinine Coronavirus (PCR) Crossmatch 02/11/21 02/11/21 02/11/21 09:00 09:00 13:18 WBC RBC Hgb Hct MCV MCH MCHC RDW Plt Count Lymph % (Auto) Lymph # (Auto) Seg Neutrophils % Seg Neuts % (Manual) Lymphocytes % (Manual) Nucleated RBC % Seg Neutrophils # Seg Neutrophils # Man Lymphocytes # (Manual) Eosinophils # (Manual) INR D-Dimer ABG pH POC ABG pCO2 POC ABG pO2 ABG pO2 ABG HCO3 ABG O2 Saturation ABG Base Excess ABG Hemoglobin ABG Oxyhemoglobin ABG Sodium ABG Potassium ABG Chloride ABG Glucose Oxyhemoglobin Carboxyhemoglobin Sodium Potassium Chloride Carbon Dioxide BUN Creatinine Glucose 126 H POC Glucose 160 H Hemoglobin A1c Lactic Acid Calcium Phosphorus Magnesium Ferritin 1253.0 H Total Bilirubin AST ALT Lactate Dehydrogenase 649 H C-Reactive Protein 12.60 H Albumin Triglycerides Arterial Blood Glucose Arterial Blood Ionized Calcium Urine Creatinine Coronavirus (PCR) Crossmatch
[2021-02-11 15:00] LABS: Hematocrit 20.5 % (35.5-45.6); Hemoglobin 7.1 gm/dl (11.8-15.2)
--- NOTE | 2021-02-11 15:02 | Progress Note ---
<BRENDA MORALES - Last Filed: 02/11/21 15:00> Assessment and Plan Assessment and plan: Sepsis COVID-19 pneumonia Bilateral pneumonia Coag-neg Staph bacteremia Acute hypoxic respiratory failure Acute kidney injury, HD initiated 02/03 Hyponatremia Hypokalemia Hypokalemia Hyperphosphatemia Diabetes mellitus Hypertension Hyperlipidemia Chronic renal insufficiency Elevated D-dimer -CCM, nephrology, infectious disease consulted, appreciate recommendations -Antibiotic therapy -COVID-19 PCR positive, Pneumonia on CXR -Steroid therapy, s/p remdesivir -Mechanical ventilation, wean as tolerated -VAP bundle -HD per nephrology -Trend BMP, cBC -Bilateral lower extremity Doppler ultrasound negative for DVT/SVT -Therapeutic Lovenox -SSI and Long-acting insulin -Accu-Cheks every 6 while on tube feedings -Hold home antihypertensive regimen for now as he is still needing vasopressor support -Blood pressure monitoring per protocol -NaHCO3 gtt -Sedated with Precedex, Ativan, fentanyl -Bilateral upper extremity Doppler ultrasound pending DVT/GI prophylaxis: SCDs to bilateral lower extremities while in bed, heparin subcu, PPI Dispo: ICU The high probability of a clinically significant, sudden or life threatening deterioration of the [multi] system(s) required my full and direct attention, intervention and personal management. The aggregate critical care time was [32] minutes. This time is in addition to time spent performing reported procedures but includes the following: [x] Data Review and interpretation [x] Patient assessment and monitoring of vital signs [x] Documentation [x] Medication orders and management History Interval history: This is a 60-year-old male with diabetes mellitus, hypertension, hyperlipidemia, chronic renal insufficiency presents to the emergency department on 01/23 with shortness of breath, fevers chills, loss of smell and taste and body aches for the past 3 days via EMS. Per EMS patient's oxygen saturation on room air was 50% and after being placed on nonrebreather it increased 75%. Upon arrival to the emergency department patient was being bagged by EMS. In the emergency room patient was intubated due to severe hypoxia, increased work of breathing and lethargy. Patient was sedated on propofol and fentanyl. Patient presented with fever, tachycardia, tachypnea and acute hypoxic respiratory failure with PNA on CXR meeting Sepsis criteria. Lab work in the emergency department revealed hyponatremia, hypokalemia, hypochloremia, elevated CR/BUN and CXR showed bilateral pneumonia. Patient was admitted to the hospital service as a COVID-19 PUI with consults to infectious disease, nephrology and critical care medicine. 01/24/2021: Patient is intubated and sedated, patient is positive for COVID-19 infection. ID was consulted and put on dexamethasone and remdesivir. Patient has DEISI and nephrology is following. Creatinine stable, patient is urinating. Discussed with nephrology and he is okay with remdesivir. Pulmonary critical care is following for his vent setting. PEEP of 8 and FiO2 of 85%. Patient was alert and off sedatives. 01/25/2021; patient is intubated and on mechanical ventilation. Continue with treatment of Covid. Nephrology and ID is following. Pulmonary is following for vent management 01/26: Remains on mechanical ventilation and [facility] increased his PEEP. [facility] has ordered Precedex for sedation. Possibly need to prone this p.m. No acute events reported overnight. This morning his D-dimer is greater than 10,000 and we have started him on Lovenox 120 mg daily. Nutrition has been consulted for initiation of tube feedings. Patient remains sedated on propofol 40 and fentanyl for the time my examination this morning. 01/27: Continue Lovenox, remdesivir and empiric antibiotics. Patient had a T-max of 101 overnight. The time of examination patient is on CMV 500/18/14/0.61. Kidney function slightly worsened. Sedated on fentanyl ground-level fall and Precedex. Nephrology has increased IV fluids to 100 ml/hr. Continue to trend BMP and CBC. Sedation vacation attempt by RN this AM. 01/28: Patient completed antibiotics today [facility] will paralyze patient and increase sedation. PICC line ordered for possible vasopressor therapy need. Patient's D-dimer remains greater than 10,000 and he still has hyperchloremia. Patient's kidney function has improved today. May need to prone the patient if no improvement in oxygenation is noted in the next 24 hours. The time of my examination patient is sedated with propofol, fentanyl and Precedex and is on assist control 500/18/16/0.80 hypoxic on ABG on 60% FiO2. 01/29: Patient was started on Nimbex yesterday and his ABG this morning showed respiratory acidosis with hypercapnia and his respiratory rate was increased. We will obtain a repeat ABG this afternoon. This morning patient is hypernatremic, hyperkalemic and hyperchloremic. His potassium has been corrected with the management and will obtain repeat BMP tomorrow. His kidney functions have remained stable and we will await nephrology's input. No acute events reported overnight. This morning the time my examination patient sedated with propofol, Precedex and fentanyl and paralyzed with Nimbex. He is on assist control 500/24/16 0.80. 01/30: This morning patient is hypokalemic again and was given Kayexalate. Patient has hypernatremia and hyper chloremia and his renal function is slightly worse after receiving Lasix yesterday. His D-dimer remains greater than 10,000 and he is still on a paralytic. Patient is sedated on Precedex, fentanyl, propofol. Mechanical ventilation settings seven-point /61/28. [facility] has decided to continue paralytics for 48 more hours and will attempt proning the patient. Increased free water flushes 300 cc every 4 hours. Patient states has restarted his antibiotics cefepime and vancomycin and recultured. 01/31/21 Hyperkalemia, Treated 02/01/21 Hyperkalemia, Treated 02/02: Patient's kidney function continues to worsen and a stat BMP this morning shows BUN/creatinine 20/6.1 and he remains hypocalcemic and hypernatremic, hypok alemic and hypochloremic. Patient received 2 g of calcium gluconate and Kayexalate and his repeat potassium was 4.3 this afternoon. He remains antibiotic therapy and steroids. Nephrology has placed the patient on bicarb drip given metabolic acidosis and has decided to hold off hemodialysis till veena ow.The time my examination patient is sedated on fentanyl, Precedex and on assist control 500/20/12/0.70. s/p paralytic. 02/03: Today patient's ABG shows respiratory acidosis however it is improving, hypernatremia, hyperchloremia, metabolic acidosis on BMP, worsening kidney function BUN/creatinine 130/9.2 with hyperphosphatemia. Patient received a Vas- Cath to his right IJ for initiation of dialysis. At the time of my examination patient remains sedated on fentanyl, propofol and Precedex with vasopressor support with Levophed at 2. 02/04: At the time of examination patient was on assist control tidal volume 500, rate 40, PEEP of 12, FiO2 85%. Patient had a T-max of 100.9 and ligia matute has stopped his vancomycin given negative MRSA. This afternoon patient respiked his temperature and was pancultured again. Patient was started on hemodialysis yesterday and will receive HD again today. Patient is sedated on Precedex, propofol, fentanyl and remains on Levophed. He is on assist control tidal volume 500, rate of 30, PEEP of 12, FiO2 of 85%. Patient still has some respiratory acidosis however his hypernatremia and hyperchloremia have improved and his metabolic acidosis has resolved. Patient will receive hemodialysis today 02/05: Patient continues to have low-grade fever temp this morning time examination he was on assist control tidal volume 500, and sedated on propofo l/fentanyl/Precedex and is on Levophed. Hemodialysis per nephrology. Antibiotics per ID. Patient's blood culture from 02/04 grew gram-positive cocci in clusters in 1/2 bottles and he was started on vancomycin. 02/06: Patients ABG showed respiratory acidosis and the tracings were changed however a repeat ABG showed showed acidosis.[facility] will start a bicarb drip after giving 2 amps of bicarb push. Yesterday patient blood cultures grew gram- positive cocci and he was started on vancomycin. At the time my examination patient was on assist control tidal volume 550, rate 34, PEEP 16, FiO2 90% and sedated on fentanyl, Precedex, propofol elevated pressure support with Levophed. Bilateral lower extremity Doppler ultrasounds done yesterday showed no evidence of DVT/SVT. 02/07/2021; patient is still on the vent with PEEP of 16 and FiO2 of 90%, sedated with fentanyl Precedex and propofol. Patient still requiring Levophed. Patient was sedated yesterday and was given bicarb push. Blood culture grew gram-positive cocci in clusters and he is on vancomycin, will follow identification. 02/08/2021;patient is still on the vent with PEEP of 16 and FiO2 of 90%, sedated with fentanyl Precedex and propofol. Patient still requiring Levophed. Patient was sedated yesterday and was given bicarb push. Blood culture grew gram- positive cocci in clusters and he is on vancomycin, will follow identification. Patient is currently on dialysis. Patient is anemic transfuse if hemoglobin is below 7. 02/09: This morning patient has slight hypokalemia, hypochorlemia, hyponatremia and metabolic alkalosis. [facility] will continue bicarb gtt given that the patient does not have HD access at this time. We will replete the potassium and recheck BMP in the AM. We will type and cross in anticipation of PRBC transfusion. This morning he is sedated on Ativan, fentayl, and precedex. Will obtain a triglyceride level today in hopes to resume propofol. Patient is alkalotic and BMP however we will continue with bicarb drip per [facility] given that the patient does not have any access for hemodialysis. Anticipate replacing hemodialysis catheter tomorrow or Tuesday. The time my examination he is on AC TV 550, Rate 34, PeeP 16, FiO2 .65. 02/10: A.m. labs still pending, [facility] plans to replace HD catheter tomorrow as the patient is still febrile however his fever curve is trending down, remains on a bicarb drip and on vancomycin. Today at the time my examination patient was sedated on Precedex, Ativan and fentanyl and he is on assist control tidal 11/04/1951, rate 34, PEEP 16, FiO2 65%. Overnight patient was hypotensive and received 1 dose of midodrine. 02/11: Patient is still having low-grade temperatures that we will obtain a bilateral lower upper extremity venous Doppler ultrasound given that his repeat cultures have been negative so far. Patient received a Vas-Cath today for hemodialysis. The time examination patient is on assist control tidal volume 550, rate of 34, PEEP of 16 and FiO2 of 75%. Patient was hypokalemic and anemic yesterday which were both repleted with potassium and 1 unit PRBC. Hospitalist Physical - Constitutional Vitals: Temp Pulse Resp BP Pulse Ox 98.8 F 94 H 35 H 111/58 95 02/11/21 12:45 02/11/21 14:45 02/11/21 13:30 02/11/21 14:45 02/11/21 13:30 General appearance: Present: no acute distress, well-nourished, other (Sedated on mechanical ventilation) - EENT Eyes: Present: PERRL ENT: poor dentition - Neck Neck: Present: normal ROM - Respiratory Respiratory effort: normal Respiratory: bilateral: diminished - Cardiovascular Rhythm: regular Heart Sounds: Present: S1 & S2. Absent: systolic murmur, diastolic murmur - Extremities Extremities: no ischemia, pulses intact, pulses symmetrical, No edema, normal temperature, normal color Peripheral Pulses: within normal limits - Abdominal General gastrointestinal: soft, non-tender, non-distended, normal bowel sounds - Integumentary Integumentary: Present: warm, dry - Psychiatric Psychiatric: other (sedated) - Neurologic Neurologic: other (sedated) HEART Score - HEART Score Risk factors: 1-2 risk factors Troponin: < normal limit - Critical Actions Critical Actions: 0-3 pts:0.9-1.7%risk of adverse cardiac event.Candidate for discharge Results - Labs CBC & Chem 7: 02/11/21 04:30 02/11/21 09:00 Labs: Laboratory Last Values WBC 10.8 K/mm3 (4.5-11.0) 02/11/21 04:30 RBC 2.22 M/mm3 (3.65-5.03) L 02/11/21 04:30 Hgb 7.2 gm/dl (11.8-15.2) L 02/11/21 04:30 Hct 21.0 % (35.5-45.6) L 02/11/21 04:30 MCV 94 fl (84-94) 02/11/21 04:30 MCH 32 pg (28-32) 02/11/21 04:30 MCHC 34 % (32-34) 02/11/21 04:30 RDW 13.8 % (13.2-15.2) 02/11/21 04:30 Plt Count 239 K/mm3 (140-440) 02/11/21 04:30 Lymph % (Auto) 8.7 % (13.4-35.0) L 02/11/21 04:30 [place] % (Auto) 3.8 % (0.0-7.3) 02/11/21 04:30 Eos % (Auto) 0.9 % (0.0-4.3) 02/11/21 04:30 Baso % (Auto) 1.0 % (0.0-1.8) 02/11/21 04:30 Lymph # (Auto) 0.9 K/mm3 (1.2-5.4) L 02/11/21 04:30 [place] # (Auto) 0.4 K/mm3 (0.0-0.8) 02/11/21 04:30 Eos # (Auto) 0.1 K/mm3 (0.0-0.4) 02/11/21 04:30 Baso # (Auto) 0.0 K/mm3 (0.0-0.1) 02/11/21 04:30 Add Manual Diff Complete 02/09/21 05:10 Total Counted 100 02/09/21 05:10 Seg Neutrophils % 85.5 % (40.0-70.0) H 02/11/21 04:30 Seg Neuts % (Manual) 82.0 % (40.0-70.0) H 02/09/21 05:10 Band Neutrophils % 4.0 % 02/09/21 05:10 Lymphocytes % (Manual) 9.0 % (13.4-35.0) L 02/09/21 05:10 Reactive Lymphs % (Man) 1.0 % 01/27/21 05:29 Monocytes % (Manual) 2.0 % (0.0-7.3) 02/09/21 05:10 Eosinophils % (Manual) 1.0 % (0.0-4.3) 02/09/21 05:10 Basophils % (Manual) 1.0 % (0.0-1.8) 02/06/21 Unknown Metamyelocytes % 2.0 % 02/09/21 05:10 Nucleated RBC % 1.0 % (0.0-0.9) H 02/09/21 05:10 Seg Neutrophils # 9.2 K/mm3 (1.8-7.7) H 02/11/21 04:30 Seg Neutrophils # Man 8.9 K/mm3 (1.8-7.7) H 02/09/21 05:10 Band Neutrophils # 0.4 K/mm3 02/09/21 05:10 Lymphocytes # (Manual) 1.0 K/mm3 (1.2-5.4) L 02/09/21 05:10 Abs React Lymphs (Man) 0.0 K/mm3 02/09/21 05:10 Monocytes # (Manual) 0.2 K/mm3 (0.0-0.8) 02/09/21 05:10 Eosinophils # (Manual) 0.1 K/mm3 (0.0-0.4) 02/09/21 05:10 Basophils # (Manual) 0.0 K/mm3 (0.0-0.1) 02/09/21 05:10 Metamyelocytes # 0.2 K/mm3 02/09/21 05:10 Myelocytes # 0.0 K/mm3 02/09/21 05:10 Promyelocytes # 0.0 K/mm3 02/09/21 05:10 Blast Cells # 0.0 K/mm3 02/09/21 05:10 WBC Morphology Not Reportable 02/09/21 05:10 Hypersegmented Neuts Not Reportable 02/09/21 05:10 Hyposegmented Neuts Not Reportable 02/09/21 05:10 Hypogranular Neuts Not Reportable 02/09/21 05:10 Smudge Cells Not Reportable 02/09/21 05:10 Toxic Granulation Not Reportable 02/09/21 05:10 Toxic Vacuolation Not Reportable 02/09/21 05:10 Dohle Bodies Not Reportable 02/09/21 05:10 Pelger-Huet Anomaly Not Reportable 02/09/21 05:10 Fátima Rods Not Reportable 02/09/21 05:10 Platelet Estimate Consistent w auto 02/09/21 05:10 Clumped Platelets Not Reportable 02/09/21 05:10 Plt Clumps, EDTA Not Reportable 02/09/21 05:10 Large Platelets Few 02/09/21 05:10 Giant Platelets Not Reportable 02/09/21 05:10 Platelet Satelliting Not Reportable 02/09/21 05:10 Plt Morphology Comment Not Reportable 02/09/21 05:10 RBC Morphology Not Reportable 02/09/21 05:10 Dimorphic RBCs Not Reportable 02/09/21 05:10 Polychromasia Few 02/09/21 05:10 Hypochromasia Not Reportable 02/09/21 05:10 Poikilocytosis Not Reportable 02/09/21 05:10 Anisocytosis 1+ 02/09/21 05:10 Microcytosis Not Reportable 02/09/21 05:10 Macrocytosis Not Reportable 02/09/21 05:10 Spherocytes Not Reportable 02/09/21 05:10 Pappenheimer Bodies Not Reportable 02/09/21 05:10 Sickle Cells Not Reportable 02/09/21 05:10 Target Cells Not Reportable 02/09/21 05:10 Tear Drop Cells Not Reportable 02/09/21 05:10 Ovalocytes Not Reportable 02/09/21 05:10 Helmet Cells Not Reportable 02/09/21 05:10 [place] Bodies Not Reportable 02/09/21 05:10 Lena Rings Not Reportable 02/09/21 05:10 [place] Cells Not Reportable 02/09/21 05:10 Bite Cells Not Reportable 02/09/21 05:10 Crenated Cell Not Reportable 02/09/21 05:10 Elliptocytes Not Reportable 02/09/21 05:10 Acanthocytes (Spur) Not Reportable 02/09/21 05:10 Rouleaux Not Reportable 02/09/21 05:10 Hemoglobin C Crystals Not Reportable 02/09/21 05:10 Schistocytes Not Reportable 02/09/21 05:10 Malaria parasites Not Reportable 02/09/21 05:10 [place] Bodies Not Reportable 02/09/21 05:10 Hem Pathologist Commnt No 02/09/21 05:10 PT 14.9 Sec. (12.2-14.9) 02/11/21 08:27 INR 1.17 (0.87-1.13) H 02/11/21 08:27 D-Dimer 1930.92 ng/mlDDU (0-234) H 02/11/21 08:27 ABG pH 7.307 (7.320-7.450) L 02/11/21 04:05 POC ABG pCO2 72.2 mmHg (32.0-48.0) H 02/11/21 04:05 ABG pCO2 82.8 mm Hg 02/06/21 17:00 POC ABG pO2 72.3 mmHg (83-108) L 02/11/21 04:05 ABG pO2 109.8 mm Hg (80.0-90.0) H 02/06/21 17:00 POC ABG HCO3 35.3 02/11/21 04:05 ABG HCO3 28.7 mmol/L (20.0-26.0) H 02/06/21 17:00 ABG O2 Saturation 92.7 (0-100) 02/11/21 04:05 ABG O2 Content 20.1 (0.0-44) 02/06/21 17:00 POC ABG Base Excess 7.7 02/11/21 04:05 ABG Base Excess -2.5 mmol/L (-2.0-3.0) L 02/06/21 17:00 ABG Hemoglobin 8.2 (12.0-17.5) L 02/11/21 04:05 ABG Oxyhemoglobin 92.2 (94-98) L 02/09/21 03:21 ABG Carboxyhemoglobin 1.5 % (0.0-5.0) 02/06/21 17:00 ABG Methemoglobin 0 (0.0-1.5) 02/09/21 03:21 ABG Sodium 132.3 mmol/L (136.0-145.0) L 02/11/21 04:05 ABG Potassium 3.2 mmol/L (3.40-4.50) L 02/11/21 04:05 ABG Chloride 91.0 mmol/L (98-107) L 02/11/21 04:05 ABG Glucose 197 mg/dL (65-95) H 02/11/21 04:05 Oxyhemoglobin 94.5 % (95.0-99.0) L 02/06/21 17:00 Carboxyhemoglobin 1.5 (0.5-1.5) 02/09/21 03:21 FiO2 90 % 02/06/21 17:00 FiO2 % 80 02/11/21 04:05 Sodium 135 mmol/L (137-145) L 02/11/21 04:30 Potassium 3.3 mmol/L (3.6-5.0) L 02/11/21 04:30 Chloride 87.1 mmol/L (98-107) L 02/11/21 04:30 Carbon Dioxide 36 mmol/L (22-30) H 02/11/21 04:30 Anion Gap 15 mmol/L 02/11/21 04:30 BUN 71 mg/dL (9-20) H 02/11/21 04:30 Creatinine 7.9 mg/dL (0.8-1.3) H 02/11/21 04:30 Estimated GFR 8 ml/min 02/11/21 04:30 BUN/Creatinine Ratio 9 % 02/11/21 04:30 Glucose 126 mg/dL (75-100) H 02/11/21 09:00 POC Glucose 160 mg/dL (70-105) H 02/11/21 13:18 Hemoglobin A1c 6.3 % (4-6) H 02/02/21 16:00 Lactic Acid 1.90 mmol/L (0.7-2.0) 01/24/21 14:38 Calcium 6.2 mg/dL (8.4-10.2) L 02/11/21 04:30 Phosphorus 3.60 mg/dL (2.5-4.5) D 02/08/21 06:00 Magnesium 2.20 mg/dL (1.7-2.3) 02/04/21 04:45 Ferritin 1253.0 ng/mL (30.0-300.0) H 02/11/21 09:00 Total Bilirubin 1.50 mg/dL (0.1-1.2) H 01/26/21 05:47 AST 37 units/L (5-40) 01/26/21 05:47 ALT 29 units/L (7-56) 01/26/21 05:47 Alkaline Phosphatase 70 units/L (35-129) 01/26/21 05:47 Lactate Dehydrogenase 649 units/L (91-180) H 02/11/21 09:00 C-Reactive Protein 12.60 mg/dL (0.00-1.30) H 02/11/21 09:00 Total Protein 7.2 g/dL (6.3-8.2) 01/26/21 05:47 Albumin 2.2 g/dL (3.9-5) L 01/26/21 05:47 Albumin/Globulin Ratio 0.4 % 01/26/21 05:47 Triglycerides 250 mg/dL (2-149) H 02/09/21 13:32 Procalcitonin 0.92 ng/mL (<0.15) 01/22/21 22:57 Arterial Blood Glucose 197 mg/dL (65-95) H 02/11/21 04:05 Arterial Blood Ionized Calcium 3.3 mg/dL (4.6-5.3) L 02/11/21 04:05 Urine Color Nehal (Yellow) 01/22/21 22:39 Urine Turbidity Cloudy (Clear) 01/22/21 22:39 Urine pH 5.0 (5.0-7.0) 01/22/21 22:39 Ur Specific [place] 1.017 (1.003-1.030) 01/22/21 22:39 Urine Protein 100 mg/dl mg/dL (Negative) 01/22/21 22:39 Urine Glucose (UA) Neg mg/dL (Negative) 01/22/21 22:39 Urine Ketones Neg mg/dL (Negative) 01/22/21 22:39 Urine Blood Mod (Negative) 01/22/21 22:39 Urine Nitrite Neg (Negative) 01/22/21 22:39 Urine Bilirubin Neg (Negative) 01/22/21 22:39 Urine Urobilinogen 2.0 mg/dL (<2.0) 01/22/21 22:39 Ur Leukocyte Esterase Mod (Negative) 01/22/21 22:39 Urine WBC (Auto) < 1.0 /HPF (0.0-6.0) 01/22/21 22:39 Urine RBC (Auto) < 1.0 /HPF (0.0-6.0) 01/22/21 22:39 U Epithel Cells (Auto) < 1.0 /HPF (0-13.0) 01/22/21 22:39 Urine Osmolality 416 Mosm/kg 01/30/21 12:15 Urine Total Volume 2300 ml 01/30/21 12:00 Urine Creatinine 53.0 mg/dL (0.1-20.0) H 01/30/21 12:00 Ur Creatinine 24 Hour 1.2 (0.8-2.8) 01/30/21 12:00 Urine Sodium 28 mmol/L 01/22/21 22:39 Nasal Screen MRSA (PCR) Negative (Negative) 02/02/21 13:20 Random Vancomycin 13.7 ug/mL (0-40.0) 02/07/21 10:40 Coronavirus (PCR) Positive (Negative) A 01/23/21 08:41 Hepatitis A IgM Ab Non-reactive (NonReactive) 02/03/21 Unknown Hep Bs Antigen Non-reactive (Negative) 02/03/21 Unknown Hep B Core IgM Ab Non-reactive (NonReactive) 02/03/21 Unknown Hepatitis C Antibody Non-reactive (NonReactive) 02/03/21 Unknown Blood Type B POSITIVE 02/09/21 13:40 Antibody Screen Negative 02/09/21 13:40 Crossmatch See Detail 02/09/21 13:40 Microbiology: Microbiology 02/08/21 15:12 Peripheral/Venous Blood Culture - Preliminary NO GROWTH AFTER 48 HOURS 02/08/21 15:12 Peripheral/Venous Blood Culture - Preliminary NO GROWTH AFTER 48 HOURS Black/IV: Voiding Method Indwelling Catheter Active Medications - Current Medications Current Medications: Generic Name Dose Route Start Last Admin Trade Name Freq PRN Reason Stop Dose Admin Acetaminophen 650 mg 01/23/21 02:25 Acetaminophen 650 Mg Rect Supp MT Q4H PRN Pain, Mild (1-3) Acetaminophen 650 mg 01/24/21 12:58 02/11/21 04:09 Acetaminophen 325 Mg/10.15 Ml Oral Liqd Unit Dose FEEDTUBE 650 mg Q6H PRN Administration Pain, Mild (1-3) Lipase/Protease/Amylase 1 each 01/26/21 14:25 Lipase 10,500/Protease 25,000/Amylase 43,750 (Units) Dr Cap FEEDTUBE PRN PRN For Clogged Feeding Tube Dextrose 50 ml 01/27/21 07:24 Dextrose 50% In Water (25gm) 50 Ml Syringe IV Q30MIN PRN Hypoglycemia Protocol Enoxaparin Sodium 120 mg 01/26/21 11:00 02/11/21 09:06 Enoxaparin 120 Mg/0.8 Ml Inj SUB-Q 120 mg Q24HR CECE Administration Famotidine 20 mg 02/10/21 10:00 02/11/21 09:06 Famotidine 20 Mg Tab PO 20 mg DAILY CECE Administration Fentanyl 50 mcg 01/22/21 22:39 02/10/21 13:46 Fentanyl 100 Mcg/2 Ml Inj IV 50 mcg Q10MIN PRN Administration ANALGESIA Heparin Sodium (Porcine) 2,000 unit 02/11/21 09:38 Heparin 10,000 Units/10 Ml Vial IV SAGRARIO PRN hemodialysis Hydrophilic Ointment 1 applic 01/22/21 22:39 Lip Therapy Vaseline TP Q2HR PRN Dry Lips Fentanyl Citrate 2,000 mcg in 100 mls @ 6.124 mls/hr 01/22/21 23:00 02/11/21 13:29 Fentanyl Drip Premix IV 4 mcg/kg/hr TITR CECE 24.494 mls/hr Administration Protocol 1 MCG/KG/HR Propofol 1,000 mg in 100 mls @ 3.674 mls/hr 01/22/21 23:45 02/06/21 18:37 Diprivan 10 Mg/Ml IV 0 mcg/kg/min TITR CECE 0 mls/hr Titration Protocol 5 MCG/KG/MIN Norepinephrine 4 mg in 250 mls @ 7.5 mls/hr 01/28/21 14:00 02/08/21 06:08 Levophed Drip 4 Mg/Ns 250 Ml IV 0 mcg/min TITR CECE 0 mls/hr Titration Protocol 2 MCG/MIN Dexmedetomidine HCl 1,000 mcg/ 260 mls @ 6.368 mls/hr 01/30/21 20:00 02/11/21 14:12 Sodium Chloride IV 1.4 mcg/kg/hr TITRATE CECE 44.579 mls/hr Administration Protocol 0.2 MCG/KG/HR Sodium Bicarbonate 150 meq/ 1,150 mls @ 100 mls/hr 02/06/21 11:30 02/11/21 13:30 Dextrose IV 100 mls/hr DIRECT CECE Administration Lorazepam 100 mg/ Sodium 100 mls @ 1 mls/hr 02/06/21 19:00 02/10/21 01:00 Chloride/ Miscellaneous IV 1 mg/hr Information TITR CECE 1 mls/hr Titration Protocol 1 MG/HR Sodium Chloride 500 mls @ 0 mls/hr 02/10/21 15:42 Nacl 0.9% 500 Ml IV 02/11/21 15:41 ONCE CECE As Directed Sodium Chloride 100 mls @ 999 mls/hr 02/11/21 09:38 Nacl 0.9% IV SAGRARIO PRN Hypotension Multi-Ingred Cream/Lotion/Oil/Oint 1 applic 01/22/21 22:39 02/01/21 09:33 Mineral Oil/Petrolatum, White Ophth Oint 3.5 Gm OU 1 applic Q4HR PRN Administration Dry Eye(s) Ondansetron HCl 4 mg 01/23/21 02:17 Ondansetron 4 Mg/2 Ml Inj IV Q8H PRN Nausea And Vomiting Simple Syrup 15 ml 01/26/21 14:25 Simple Syrup 15 Ml FEEDTUBE PRN PRN Hypoglycemia Simple Syrup 30 ml 01/26/21 14:25 Simple Syrup 15 Ml FEEDTUBE PRN PRN Hypoglycemia Sodium Bicarbonate 325 mg 01/26/21 14:25 Sodium Bicarbonate 325 Mg Tab FEEDTUBE PRN PRN For Clogged Feeding Tube Nutrition/Malnutrition Assess - Dietary Evaluation Nutrition/Malnutrition Findings: Nutrition Notes Start: 01/26/21 13:59 Freq: Status: Active Protocol: Document 02/10/21 13:44 CW (Rec: 02/10/21 13:57 CW [id number]) Nutrition Notes Initial or Follow up Reassessment Current Diagnosis Acute Kidney Injury,Diabetes, Sepsis,Hypertension, Respiratory Failure, Hyperlipidemia Other Pertinent Diagnosis on HD, COVID-19 (+), bilat pneu Current Diet TF - Nepro at 36 ml/hr Labs/Tests 02/09/2021 Na 135 BUN 54 Cr 6.6 BG 163 Pertinent Medications NaHCO3 150 mEq in D at 100 ml/ hr Height 5 ft 8 in Weight 147.6 kg [place] Body Weight (kg) 70.00 BMI 49.4 Weight change and time frame wt increase likely r/t to HD need Weight Status Morbidly Obese Subjective/Other Information F/U for proning, propofol, vent status, and HD. Last HD was on 02/07/2021. Pt has not received propofol today but per MD pt may recieve propofol in near future. Per RN pt is tolerating TF well. TF running at goal of 36 ml/hr. Will adjust flush d/t hyponatremia. . EUGENIO Null aware of change. Percent of energy/protein needs met: 88%/61% Burn Absent Trauma Absent GI Symptoms None Difficulty In Swallowing Skin Integrity/Comment Intact Current % PO Negligible Minimum of two criteria No physical signs of malnutrition #1 Nutrition Diagnosis Inadequate oral intake Diagnosis Progress(for reassessment Continues documentation) Is patient on ventilator? Yes Is Patient Ambulatory and/or Out of Bed No REE-([facility]-confined to bed) 2704.776 Kcal/Kg value to use for calculation 12 Approximate Energy Requirements Using 1771 kcal/Kg Calculation Used for Recommendations Kcal/kg Additional Notes Pro needs >1.2g/kg adjBW: > 115g/day for HD needs Fluid needs per MD Nutrition Intervention Change Diet Order: Resume Nepro at 36 ml, decrease flush to 200 ml q4h for hyponatremia Nutrition Support: If running continuous feed x 24 hrs without proning: Nepro at 36 ml/hr with a free water flush 200 ml q4h. If in prone position x 12/hr day: While in prone position: Nepro at 20 ml/hr with free water flush of 100 ml q4h or per MD order. While in supine position: Nepro at 65 ml/hr with a free water flush of 200 ml q4h or per MD order. Kcal 1,555 Protein (gm) 70 Fluid (mL) 628 Goal #1 TF tolerance Goal #2 TF to meet at least 75% energy and pro needs Anticipated Discharge Needs: unable to determine at this time Follow-Up By: 02/13/21 Additional Comments F/U for TF tolerance, vent status, propofol <DENN[place] HOANG R - Last Filed: 02/11/21 17:27> Assessment and Plan Assessment and plan: I saw and evaluated the patient. I agree with the findings and the plan of care as documented in the Nurse Practitioner's~note, Hospitalist Physical - Constitutional Vitals: Temp Pulse Resp BP Pulse Ox 98.8 F 90 34 H 113/62 98 02/11/21 16:10 02/11/21 16:10 02/11/21 16:10 02/11/21 16:10 02/11/21 16:10 Results - Labs CBC & Chem 7: 02/11/21 14:30 02/11/21 09:00 Labs: Laboratory Last Values WBC 10.8 K/mm3 (4.5-11.0) 02/11/21 04:30 RBC 2.22 M/mm3 (3.65-5.03) L 02/11/21 04:30 Hgb 7.1 gm/dl (11.8-15.2) L 02/11/21 14:30 Hct 20.5 % (35.5-45.6) L 02/11/21 14:30 MCV 94 fl (84-94) 02/11/21 04:30 MCH 32 pg (28-32) 02/11/21 04:30 MCHC 34 % (32-34) 02/11/21 04:30 RDW 13.8 % (13.2-15.2) 02/11/21 04:30 Plt Count 239 K/mm3 (140-440) 02/11/21 04:30 Lymph % (Auto) 8.7 % (13.4-35.0) L 02/11/21 04:30 [place] % (Auto) 3.8 % (0.0-7.3) 02/11/21 04:30 Eos % (Auto) 0.9 % (0.0-4.3) 02/11/21 04:30 Baso % (Auto) 1.0 % (0.0-1.8) 02/11/21 04:30 Lymph # (Auto) 0.9 K/mm3 (1.2-5.4) L 02/11/21 04:30 [place] # (Auto) 0.4 K/mm3 (0.0-0.8) 02/11/21 04:30 Eos # (Auto) 0.1 K/mm3 (0.0-0.4) 02/11/21 04:30 Baso # (Auto) 0.0 K/mm3 (0.0-0.1) 02/11/21 04:30 Add Manual Diff Complete 02/09/21 05:10 Total Counted 100 02/09/21 05:10 Seg Neutrophils % 85.5 % (40.0-70.0) H 02/11/21 04:30 Seg Neuts % (Manual) 82.0 % (40.0-70.0) H 02/09/21 05:10 Band Neutrophils % 4.0 % 02/09/21 05:10 Lymphocytes % (Manual) 9.0 % (13.4-35.0) L 02/09/21 05:10 Reactive Lymphs % (Man) 1.0 % 01/27/21 05:29 Monocytes % (Manual) 2.0 % (0.0-7.3) 02/09/21 05:10 Eosinophils % (Manual) 1.0 % (0.0-4.3) 02/09/21 05:10 Basophils % (Manual) 1.0 % (0.0-1.8) 02/06/21 Unknown Metamyelocytes % 2.0 % 02/09/21 05:10 Nucleated RBC % 1.0 % (0.0-0.9) H 02/09/21 05:10 Seg Neutrophils # 9.2 K/mm3 (1.8-7.7) H 02/11/21 04:30 Seg Neutrophils # Man 8.9 K/mm3 (1.8-7.7) H 02/09/21 05:10 Band Neutrophils # 0.4 K/mm3 02/09/21 05:10 Lymphocytes # (Manual) 1.0 K/mm3 (1.2-5.4) L 02/09/21 05:10 Abs React Lymphs (Man) 0.0 K/mm3 02/09/21 05:10 Monocytes # (Manual) 0.2 K/mm3 (0.0-0.8) 02/09/21 05:10 Eosinophils # (Manual) 0.1 K/mm3 (0.0-0.4) 02/09/21 05:10 Basophils # (Manual) 0.0 K/mm3 (0.0-0.1) 02/09/21 05:10 Metamyelocytes # 0.2 K/mm3 02/09/21 05:10 Myelocytes # 0.0 K/mm3 02/09/21 05:10 Promyelocytes # 0.0 K/mm3 02/09/21 05:10 Blast Cells # 0.0 K/mm3 02/09/21 05:10 WBC Morphology Not Reportable 02/09/21 05:10 Hypersegmented Neuts Not Reportable 02/09/21 05:10 Hyposegmented Neuts Not Reportable 02/09/21 05:10 Hypogranular Neuts Not Reportable 02/09/21 05:10 Smudge Cells Not Reportable 02/09/21 05:10 Toxic Granulation Not Reportable 02/09/21 05:10 Toxic Vacuolation Not Reportable 02/09/21 05:10 Dohle Bodies Not Reportable 02/09/21 05:10 Pelger-Huet Anomaly Not Reportable 02/09/21 05:10 Fátima Rods Not Reportable 02/09/21 05:10 Platelet Estimate Consistent w auto 02/09/21 05:10 Clumped Platelets Not Reportable 02/09/21 05:10 Plt Clumps, EDTA Not Reportable 02/09/21 05:10 Large Platelets Few 02/09/21 05:10 Giant Platelets Not Reportable 02/09/21 05:10 Platelet Satelliting Not Reportable 02/09/21 05:10 Plt Morphology Comment Not Reportable 02/09/21 05:10 RBC Morphology Not Reportable 02/09/21 05:10 Dimorphic RBCs Not Reportable 02/09/21 05:10 Polychromasia Few 02/09/21 05:10 Hypochromasia Not Reportable 02/09/21 05:10 Poikilocytosis Not Reportable 02/09/21 05:10 Anisocytosis 1+ 02/09/21 05:10 Microcytosis Not Reportable 02/09/21 05:10 Macrocytosis Not Reportable 02/09/21 05:10 Spherocytes Not Reportable 02/09/21 05:10 Pappenheimer Bodies Not Reportable 02/09/21 05:10 Sickle Cells Not Reportable 02/09/21 05:10 Target Cells Not Reportable 02/09/21 05:10 Tear Drop Cells Not Reportable 02/09/21 05:10 Ovalocytes Not Reportable 02/09/21 05:10 Helmet Cells Not Reportable 02/09/21 05:10 [place] Bodies Not Reportable 02/09/21 05:10 Lena Rings Not Reportable 02/09/21 05:10 [place] Cells Not Reportable 02/09/21 05:10 Bite Cells Not Reportable 02/09/21 05:10 Crenated Cell Not Reportable 02/09/21 05:10 Elliptocytes Not Reportable 02/09/21 05:10 Acanthocytes (Spur) Not Reportable 02/09/21 05:10 Rouleaux Not Reportable 02/09/21 05:10 Hemoglobin C Crystals Not Reportable 02/09/21 05:10 Schistocytes Not Reportable 02/09/21 05:10 Malaria parasites Not Reportable 02/09/21 05:10 [place] Bodies Not Reportable 02/09/21 05:10 Hem Pathologist Commnt No 02/09/21 05:10 PT 14.9 Sec. (12.2-14.9) 02/11/21 08:27 INR 1.17 (0.87-1.13) H 02/11/21 08:27 D-Dimer 1930.92 ng/mlDDU (0-234) H 02/11/21 08:27 ABG pH 7.307 (7.320-7.450) L 02/11/21 04:05 POC ABG pCO2 72.2 mmHg (32.0-48.0) H 02/11/21 04:05 ABG pCO2 82.8 mm Hg 02/06/21 17:00 POC ABG pO2 72.3 mmHg (83-108) L 02/11/21 04:05 ABG pO2 109.8 mm Hg (80.0-90.0) H 02/06/21 17:00 POC ABG HCO3 35.3 02/11/21 04:05 ABG HCO3 28.7 mmol/L (20.0-26.0) H 02/06/21 17:00 ABG O2 Saturation 92.7 (0-100) 02/11/21 04:05 ABG O2 Content 20.1 (0.0-44) 02/06/21 17:00 POC ABG Base Excess 7.7 02/11/21 04:05 ABG Base Excess -2.5 mmol/L (-2.0-3.0) L 02/06/21 17:00 ABG Hemoglobin 8.2 (12.0-17.5) L 02/11/21 04:05 ABG Oxyhemoglobin 92.2 (94-98) L 02/09/21 03:21 ABG Carboxyhemoglobin 1.5 % (0.0-5.0) 02/06/21 17:00 ABG Methemoglobin 0 (0.0-1.5) 02/09/21 03:21 ABG Sodium 132.3 mmol/L (136.0-145.0) L 02/11/21 04:05 ABG Potassium 3.2 mmol/L (3.40-4.50) L 02/11/21 04:05 ABG Chloride 91.0 mmol/L (98-107) L 02/11/21 04:05 ABG Glucose 197 mg/dL (65-95) H 02/11/21 04:05 Oxyhemoglobin 94.5 % (95.0-99.0) L 02/06/21 17:00 Carboxyhemoglobin 1.5 (0.5-1.5) 02/09/21 03:21 FiO2 90 % 02/06/21 17:00 FiO2 % 80 02/11/21 04:05 Sodium 135 mmol/L (137-145) L 02/11/21 04:30 Potassium 3.3 mmol/L (3.6-5.0) L 02/11/21 04:30 Chloride 87.1 mmol/L (98-107) L 02/11/21 04:30 Carbon Dioxide 36 mmol/L (22-30) H 02/11/21 04:30 Anion Gap 15 mmol/L 02/11/21 04:30 BUN 71 mg/dL (9-20) H 02/11/21 04:30 Creatinine 7.9 mg/dL (0.8-1.3) H 02/11/21 04:30 Estimated GFR 8 ml/min 02/11/21 04:30 BUN/Creatinine Ratio 9 % 02/11/21 04:30 Glucose 126 mg/dL (75-100) H 02/11/21 09:00 POC Glucose 160 mg/dL (70-105) H 02/11/21 13:18 Hemoglobin A1c 6.3 % (4-6) H 02/02/21 16:00 Lactic Acid 1.90 mmol/L (0.7-2.0) 01/24/21 14:38 Calcium 6.2 mg/dL (8.4-10.2) L 02/11/21 04:30 Phosphorus 3.60 mg/dL (2.5-4.5) D 02/08/21 06:00 Magnesium 2.20 mg/dL (1.7-2.3) 02/04/21 04:45 Ferritin 1253.0 ng/mL (30.0-300.0) H 02/11/21 09:00 Total Bilirubin 1.50 mg/dL (0.1-1.2) H 01/26/21 05:47 AST 37 units/L (5-40) 01/26/21 05:47 ALT 29 units/L (7-56) 01/26/21 05:47 Alkaline Phosphatase 70 units/L (35-129) 01/26/21 05:47 Lactate Dehydrogenase 649 units/L (91-180) H 02/11/21 09:00 C-Reactive Protein 12.60 mg/dL (0.00-1.30) H 02/11/21 09:00 Total Protein 7.2 g/dL (6.3-8.2) 01/26/21 05:47 Albumin 2.2 g/dL (3.9-5) L 01/26/21 05:47 Albumin/Globulin Ratio 0.4 % 01/26/21 05:47 Triglycerides 250 mg/dL (2-149) H 02/09/21 13:32 Procalcitonin 0.92 ng/mL (<0.15) 01/22/21 22:57 Arterial Blood Glucose 197 mg/dL (65-95) H 02/11/21 04:05 Arterial Blood Ionized Calcium 3.3 mg/dL (4.6-5.3) L 02/11/21 04:05 Urine Color Nehal (Yellow) 01/22/21 22:39 Urine Turbidity Cloudy (Clear) 01/22/21 22:39 Urine pH 5.0 (5.0-7.0) 01/22/21 22:39 Ur Specific [place] 1.017 (1.003-1.030) 01/22/21 22:39 Urine Protein 100 mg/dl mg/dL (Negative) 01/22/21 22:39 Urine Glucose (UA) Neg mg/dL (Negative) 01/22/21 22:39 Urine Ketones Neg mg/dL (Negative) 01/22/21 22:39 Urine Blood Mod (Negative) 01/22/21 22:39 Urine Nitrite Neg (Negative) 01/22/21 22:39 Urine Bilirubin Neg (Negative) 01/22/21 22:39 Urine Urobilinogen 2.0 mg/dL (<2.0) 01/22/21 22:39 Ur Leukocyte Esterase Mod (Negative) 01/22/21 22:39 Urine WBC (Auto) < 1.0 /HPF (0.0-6.0) 01/22/21 22:39 Urine RBC (Auto) < 1.0 /HPF (0.0-6.0) 01/22/21 22:39 U Epithel Cells (Auto) < 1.0 /HPF (0-13.0) 01/22/21 22:39 Urine Osmolality 416 Mosm/kg 01/30/21 12:15 Urine Total Volume 2300 ml 01/30/21 12:00 Urine Creatinine 53.0 mg/dL (0.1-20.0) H 01/30/21 12:00 Ur Creatinine 24 Hour 1.2 (0.8-2.8) 01/30/21 12:00 Urine Sodium 28 mmol/L 01/22/21 22:39 Nasal Screen MRSA (PCR) Negative (Negative) 02/02/21 13:20 Random Vancomycin 13.7 ug/mL (0-40.0) 02/07/21 10:40 Coronavirus (PCR) Positive (Negative) A 01/23/21 08:41 Hepatitis A IgM Ab Non-reactive (NonReactive) 02/03/21 Unknown Hep Bs Antigen Non-reactive (Negative) 02/03/21 Unknown Hep B Core IgM Ab Non-reactive (NonReactive) 02/03/21 Unknown Hepatitis C Antibody Non-reactive (NonReactive) 02/03/21 Unknown Blood Type B POSITIVE 02/09/21 13:40 Antibody Screen Negative 02/09/21 13:40 Crossmatch See Detail 02/09/21 13:40 Microbiology: Microbiology 02/08/21 15:12 Peripheral/Venous Blood Culture - Preliminary NO GROWTH AFTER 72 HOURS 02/08/21 15:12 Peripheral/Venous Blood Culture - Preliminary NO GROWTH AFTER 72 HOURS Black/IV: Voiding Method Indwelling Catheter Active Medications - Current Medications Current Medications: Generic Name Dose Route Start Last Admin Trade Name Freq PRN Reason Stop Dose Admin Acetaminophen 650 mg 01/23/21 02:25 Acetaminophen 650 Mg Rect Supp MT Q4H PRN Pain, Mild (1-3) Acetaminophen 650 mg 01/24/21 12:58 02/11/21 04:09 Acetaminophen 325 Mg/10.15 Ml Oral Liqd Unit Dose FEEDTUBE 650 mg Q6H PRN Administration Pain, Mild (1-3) Lipase/Protease/Amylase 1 each 01/26/21 14:25 Lipase 10,500/Protease 25,000/Amylase 43,750 (Units) Dr Claudio FEEDTUBE PRN PRN For Clogged Feeding Tube Dextrose 50 ml 01/27/21 07:24 Dextrose 50% In Water (25gm) 50 Ml Syringe IV Q30MIN PRN Hypoglycemia Protocol Enoxaparin Sodium 120 mg 01/26/21 11:00 02/11/21 09:06 Enoxaparin 120 Mg/0.8 Ml Inj SUB-Q 120 mg Q24HR CECE Administration Famotidine 20 mg 02/10/21 10:00 02/11/21 09:06 Famotidine 20 Mg Tab PO 20 mg DAILY CECE Administration Fentanyl 50 mcg 01/22/21 22:39 02/10/21 13:46 Fentanyl 100 Mcg/2 Ml Inj IV 50 mcg Q10MIN PRN Administration ANALGESIA Heparin Sodium (Porcine) 2,000 unit 02/11/21 09:38 Heparin 10,000 Units/10 Ml Vial IV SAGRARIO PRN hemodialysis Hydrophilic Ointment 1 applic 01/22/21 22:39 Lip Therapy Vaseline TP Q2HR PRN Dry Lips Fentanyl Citrate 2,000 mcg in 100 mls @ 6.124 mls/hr 01/22/21 23:00 02/11/21 13:29 Fentanyl Drip Premix IV 4 mcg/kg/hr TITR CECE 24.494 mls/hr Administration Protocol 1 MCG/KG/HR Propofol 1,000 mg in 100 mls @ 3.674 mls/hr 01/22/21 23:45 02/06/21 18:37 Diprivan 10 Mg/Ml IV 0 mcg/kg/min TITR CECE 0 mls/hr Titration Protocol 5 MCG/KG/MIN Norepinephrine 4 mg in 250 mls @ 7.5 mls/hr 01/28/21 14:00 02/08/21 06:08 Levophed Drip 4 Mg/Ns 250 Ml IV 0 mcg/min TITR CECE 0 mls/hr Titration Protocol 2 MCG/MIN Dexmedetomidine HCl 1,000 mcg/ 260 mls @ 6.368 mls/hr 01/30/21 20:00 02/11/21 14:12 Sodium Chloride IV 1.4 mcg/kg/hr TITRATE CECE 44.579 mls/hr Administration Protocol 0.2 MCG/KG/HR Sodium Bicarbonate 150 meq/ 1,150 mls @ 100 mls/hr 02/06/21 11:30 02/11/21 13:30 Dextrose IV 100 mls/hr DIRECT CECE Administration Lorazepam 100 mg/ Sodium 100 mls @ 1 mls/hr 02/06/21 19:00 02/10/21 01:00 Chloride/ Miscellaneous IV 1 mg/hr Information TITR CECE 1 mls/hr Titration Protocol 1 MG/HR Sodium Chloride 100 mls @ 999 mls/hr 02/11/21 09:38 Nacl 0.9% IV SAGRARIO PRN Hypotension Multi-Ingred Cream/Lotion/Oil/Oint 1 applic 01/22/21 22:39 02/01/21 09:33 Mineral Oil/Petrolatum, White Ophth Oint 3.5 Gm OU 1 applic Q4HR PRN Administration Dry Eye(s) Ondansetron HCl 4 mg 01/23/21 02:17 Ondansetron 4 Mg/2 Ml Inj IV Q8H PRN Nausea And Vomiting Simple Syrup 15 ml 01/26/21 14:25 Simple Syrup 15 Ml FEEDTUBE PRN PRN Hypoglycemia Simple Syrup 30 ml 01/26/21 14:25 Simple Syrup 15 Ml FEEDTUBE PRN PRN Hypoglycemia Sodium Bicarbonate 325 mg 01/26/21 14:25 Sodium Bicarbonate 325 Mg Tab FEEDTUBE PRN PRN For Clogged Feeding Tube Nutrition/Malnutrition Assess - Dietary Evaluation Nutrition/Malnutrition Findings: Nutrition Notes Start: 01/26/21 13:59 Freq: Status: Active Protocol: Document 02/10/21 13:44 CW (Rec: 02/10/21 13:57 CW [id number]) Nutrition Notes Initial or Follow up Reassessment Current Diagnosis Acute Kidney Injury,Diabetes, Sepsis,Hypertension, Respiratory Failure, Hyperlipidemia Other Pertinent Diagnosis on HD, COVID-19 (+), bilat pneu Current Diet TF - Nepro at 36 ml/hr Labs/Tests 02/09/2021 Na 135 BUN 54 Cr 6.6 BG 163 Pertinent Medications NaHCO3 150 mEq in D at 100 ml/ hr Height 5 ft 8 in Weight 147.6 kg [place] Body Weight (kg) 70.00 BMI 49.4 Weight change and time frame wt increase likely r/t to HD need Weight Status Morbidly Obese Subjective/Other Information F/U for proning, propofol, vent status, and HD. Last HD was on 02/07/2021. Pt has not received propofol today but per pt may recieve propofol in near future. Per RN pt is tolerating TF well. TF running at goal of 36 ml/hr. Will adjust flush d/t hyponatremia. . EUGENIO Null aware of change. Percent of energy/protein needs met: 88%/61% Burn Absent Trauma Absent GI Symptoms None Difficulty In Swallowing Skin Integrity/Comment Intact Current % PO Negligible Minimum of two criteria No physical signs of malnutrition #1 Nutrition Diagnosis Inadequate oral intake Diagnosis Progress(for reassessment Continues documentation) Is patient on ventilator? Yes Is Patient Ambulatory and/or Out of Bed No REE-([facility]-confined to bed) 2704.776 Kcal/Kg value to use for calculation 12 Approximate Energy Requirements Using 1771 kcal/Kg Calculation Used for Recommendations Kcal/kg Additional Notes Pro needs >1.2g/kg adjBW: > 115g/day for HD needs Fluid needs per MD Nutrition Intervention Change Diet Order: Resume Nepro at 36 ml, decrease flush to 200 ml q4h for hyponatremia Nutrition Support: If running continuous feed x 24 hrs without proning: Nepro at 36 ml/hr with a free water flush 200 ml q4h. If in prone position x 12/hr day: While in prone position: Nepro at 20 ml/hr with free water flush of 100 ml q4h or per MD order. While in supine position: Nepro at 65 ml/hr with a free water flush of 200 ml q4h or per MD order. Kcal 1,555 Protein (gm) 70 Fluid (mL) 628 Goal #1 TF tolerance Goal #2 TF to meet at least 75% energy and pro needs Anticipated Discharge Needs: unable to determine at this time Follow-Up By: 02/13/21 Additional Comments F/U for TF tolerance, vent status, propofol
--- NOTE | 2021-02-11 15:25 | Progress Note ---
Assessment and Plan Cultures: Blood culture 02/08/2021 no growth today SARS CoV2 PCR positive 01/22/2021 respiratory culture: Usual respiratory dillon Blood Culture 01/30/2021 no growth today Urine culture 01/30/2021 no growth today Sputum culture 01/30/2021 usual respiratory dillon Blood culture 02/04/2021 coag negative staph 2 of 4 Urine culture 02/04/2021 no growth Sputum culture 02/04/2021 Maegan albicans Assessment: 60 year old male with history of morbid obesity admitted on 01/22/2021 secondary to 3-day history of worsening shortness of breath associated with fever, chills, loss of smell and taste: #Severe sepsis with septic shock: remains with intermittent high fever now off pressors. Right IJ removed. Likely due to GPC bacteremia. Initial sepsis due to bilateral pneumonia. Urinalysis negative. Procalcitonin elevated in the setting of DEISI. Leg US no DVT. #Coag-neg Staph bacteremia: new blood culture on 02/04/2021 with GPC 2 of 4 bottles, possible real. #Critical COVID-19 pneumonia: Patient remains intubated. Chest x-ray with bilateral airspace disease. Inflammatory markers worsening, D-dimer>10K. CRP 40-->23. Completed remdesivir. #Acute respiratory failure: Remains on the ventilator #Transaminitis: Likely secondary to COVID-19. #DEISI: Worsening, On hemodialysis Recommendations: -Continue vancomycin D7 for coag negative staph bacteremia. Complete 7 days. -Monitor fever G. Divya Walker MD [facility] ([facility] O: [phone] F: [phone] Subjective Date of service: 02/11/21 Principal diagnosis: DEISI Interval history: Febrile last night to 100.6 with a white count of 10.8. Imaging personally reviewed: Chest x-ray: Diffuse bilateral airspace disease Objective - Exam Narrative Exam: General appearance: Sedated, intubated Eyes: anicteric sclerae, moist conjunctivae; no lid-lag; PERRLA HENT: Normocephalic, Atraumatic; normal external ears, nares open, oropharynx limited Neck: supple, tracheal midline, no JVD Lungs: Bilateral coarse breath sounds CV: Tachycardic Abdomen: Soft, obese, nontender Extremities: Bilateral leg edema Skin: No rash. Psych: Sedated Neuro: Sedated - Constitutional Vitals: Vital Signs Temp Pulse Resp BP Pulse Ox 98.8 F 73 35 H 113/58 95 02/11/21 12:45 02/11/21 15:15 02/11/21 13:30 02/11/21 15:15 02/11/21 13:30 Temperature -Last 24 Hours Temperature 98.8 F Temperature 99.2 F Temperature 98.8 F Temperature 98.8 F Temperature 100.3 F Temperature 99.4 F Temperature 99.2 F Temperature 99.2 F Temperature 99.2 F Temperature 100.6 F Temperature 99.7 F - Labs CBC & Chem 7: 02/11/21 14:30 02/11/21 09:00 Labs: Abnormal lab results 02/09/21 02/10/21 02/10/21 Range/Units 13:40 18:11 22:32 RBC (3.65-5.03) M/mm3 Hgb 6.4 L (11.8-15.2) gm/dl Hct 19.1 L* (35.5-45.6) % Lymph % (Auto) (13.4-35.0) % Lymph # (Auto) (1.2-5.4) K/mm3 Seg Neutrophils % (40.0-70.0) % Seg Neutrophils # (1.8-7.7) K/mm3 INR (0.87-1.13) D-Dimer (0-234) ng/mlDDU ABG pH (7.320-7.450) POC ABG pCO2 (32.0-48.0) mmHg POC ABG pO2 (83-108) mmHg ABG Hemoglobin (12.0-17.5) ABG Sodium (136.0-145.0) mmol/L ABG Potassium (3.40-4.50) mmol/L ABG Chloride (98-107) mmol/L ABG Glucose (65-95) mg/dL Sodium (137-145) mmol/L Potassium (3.6-5.0) mmol/L Chloride (98-107) mmol/L Carbon Dioxide (22-30) mmol/L BUN (9-20) mg/dL Creatinine (0.8-1.3) mg/dL Glucose (75-100) mg/dL POC Glucose 173 H (70-105) mg/dL Calcium (8.4-10.2) mg/dL Ferritin (30.0-300.0) ng/mL Lactate Dehydrogenase (91-180) units/L C-Reactive Protein (0.00-1.30) mg/dL Arterial Blood Glucose (65-95) mg/dL Arterial Blood Ionized Calcium (4.6-5.3) mg/dL Crossmatch See Detail 02/11/21 02/11/21 02/11/21 Range/Units 00:28 04:05 04:30 RBC (3.65-5.03) M/mm3 Hgb (11.8-15.2) gm/dl Hct (35.5-45.6) % Lymph % (Auto) (13.4-35.0) % Lymph # (Auto) (1.2-5.4) K/mm3 Seg Neutrophils % (40.0-70.0) % Seg Neutrophils # (1.8-7.7) K/mm3 INR (0.87-1.13) D-Dimer (0-234) ng/mlDDU ABG pH 7.307 L (7.320-7.450) POC ABG pCO2 72.2 H (32.0-48.0) mmHg POC ABG pO2 72.3 L (83-108) mmHg ABG Hemoglobin 8.2 L (12.0-17.5) ABG Sodium 132.3 L (136.0-145.0) mmol/L ABG Potassium 3.2 L (3.40-4.50) mmol/L ABG Chloride 91.0 L (98-107) mmol/L ABG Glucose 197 H (65-95) mg/dL Sodium 135 L (137-145) mmol/L Potassium 3.3 L (3.6-5.0) mmol/L Chloride 87.1 L (98-107) mmol/L Carbon Dioxide 36 H (22-30) mmol/L BUN 71 H (9-20) mg/dL Creatinine 7.9 H (0.8-1.3) mg/dL Glucose 263 H (75-100) mg/dL POC Glucose 192 H (70-105) mg/dL Calcium 6.2 L (8.4-10.2) mg/dL Ferritin (30.0-300.0) ng/mL Lactate Dehydrogenase (91-180) units/L C-Reactive Protein (0.00-1.30) mg/dL Arterial Blood Glucose 197 H (65-95) mg/dL Arterial Blood Ionized Calcium 3.3 L (4.6-5.3) mg/dL Crossmatch 02/11/21 02/11/21 02/11/21 Range/Units 04:30 05:47 08:27 RBC 2.22 L (3.65-5.03) M/mm3 Hgb 7.2 L (11.8-15.2) gm/dl Hct 21.0 L (35.5-45.6) % Lymph % (Auto) 8.7 L (13.4-35.0) % Lymph # (Auto) 0.9 L (1.2-5.4) K/mm3 Seg Neutrophils % 85.5 H (40.0-70.0) % Seg Neutrophils # 9.2 H (1.8-7.7) K/mm3 INR 1.17 H (0.87-1.13) D-Dimer 1930.92 H (0-234) ng/mlDDU ABG pH (7.320-7.450) POC ABG pCO2 (32.0-48.0) mmHg POC ABG pO2 (83-108) mmHg ABG Hemoglobin (12.0-17.5) ABG Sodium (136.0-145.0) mmol/L ABG Potassium (3.40-4.50) mmol/L ABG Chloride (98-107) mmol/L ABG Glucose (65-95) mg/dL Sodium (137-145) mmol/L Potassium (3.6-5.0) mmol/L Chloride (98-107) mmol/L Carbon Dioxide (22-30) mmol/L BUN (9-20) mg/dL Creatinine (0.8-1.3) mg/dL Glucose (75-100) mg/dL POC Glucose 189 H (70-105) mg/dL Calcium (8.4-10.2) mg/dL Ferritin (30.0-300.0) ng/mL Lactate Dehydrogenase (91-180) units/L C-Reactive Protein (0.00-1.30) mg/dL Arterial Blood Glucose (65-95) mg/dL Arterial Blood Ionized Calcium (4.6-5.3) mg/dL Crossmatch 02/11/21 02/11/21 02/11/21 Range/Units 09:00 09:00 13:18 RBC (3.65-5.03) M/mm3 Hgb (11.8-15.2) gm/dl Hct (35.5-45.6) % Lymph % (Auto) (13.4-35.0) % Lymph # (Auto) (1.2-5.4) K/mm3 Seg Neutrophils % (40.0-70.0) % Seg Neutrophils # (1.8-7.7) K/mm3 INR (0.87-1.13) D-Dimer (0-234) ng/mlDDU ABG pH (7.320-7.450) POC ABG pCO2 (32.0-48.0) mmHg POC ABG pO2 (83-108) mmHg ABG Hemoglobin (12.0-17.5) ABG Sodium (136.0-145.0) mmol/L ABG Potassium (3.40-4.50) mmol/L ABG Chloride (98-107) mmol/L ABG Glucose (65-95) mg/dL Sodium (137-145) mmol/L Potassium (3.6-5.0) mmol/L Chloride (98-107) mmol/L Carbon Dioxide (22-30) mmol/L BUN (9-20) mg/dL Creatinine (0.8-1.3) mg/dL Glucose 126 H (75-100) mg/dL POC Glucose 160 H (70-105) mg/dL Calcium (8.4-10.2) mg/dL Ferritin 1253.0 H (30.0-300.0) ng/mL Lactate Dehydrogenase 649 H (91-180) units/L C-Reactive Protein 12.60 H (0.00-1.30) mg/dL Arterial Blood Glucose (65-95) mg/dL Arterial Blood Ionized Calcium (4.6-5.3) mg/dL Crossmatch 02/11/21 Range/Units 14:30 RBC (3.65-5.03) M/mm3 Hgb 7.1 L (11.8-15.2) gm/dl Hct 20.5 L (35.5-45.6) % Lymph % (Auto) (13.4-35.0) % Lymph # (Auto) (1.2-5.4) K/mm3 Seg Neutrophils % (40.0-70.0) % Seg Neutrophils # (1.8-7.7) K/mm3 INR (0.87-1.13) D-Dimer (0-234) ng/mlDDU ABG pH (7.320-7.450) POC ABG pCO2 (32.0-48.0) mmHg POC ABG pO2 (83-108) mmHg ABG Hemoglobin (12.0-17.5) ABG Sodium (136.0-145.0) mmol/L ABG Potassium (3.40-4.50) mmol/L ABG Chloride (98-107) mmol/L ABG Glucose (65-95) mg/dL Sodium (137-145) mmol/L Potassium (3.6-5.0) mmol/L Chloride (98-107) mmol/L Carbon Dioxide (22-30) mmol/L BUN (9-20) mg/dL Creatinine (0.8-1.3) mg/dL Glucose (75-100) mg/dL POC Glucose (70-105) mg/dL Calcium (8.4-10.2) mg/dL Ferritin (30.0-300.0) ng/mL Lactate Dehydrogenase (91-180) units/L C-Reactive Protein (0.00-1.30) mg/dL Arterial Blood Glucose (65-95) mg/dL Arterial Blood Ionized Calcium (4.6-5.3) mg/dL Crossmatch
--- NOTE | 2021-02-11 19:24 | Vascular Lab Report ---
DUPLEX DOPPLER UPPER EXTREMITY VENOUS, BILATERAL INDICATION / CLINICAL INFORMATION: elevated ddimer, r/o DVT, consistent fevers. TECHNIQUE: Duplex doppler imaging was performed through the veins of the right and left upper extremity using ve nous compression and other maneuvers. COMPARISON: None available. FINDINGS: RIGHT INTERNAL JUGULAR VEIN: Negative. RIGHT SUBCLAVIAN VEIN: Negative. RIGHT AXILLARY VEIN: Negative. RIGHT BRACHIAL VEIN: Negative. RIGHT FOREARM VEINS: Negative. RIGHT BASILIC VEIN (SUPERFICIAL): Negative. LEFT INTERNAL JUGULAR VEIN: Negative. LEFT SUBCLAVIAN VEIN: Negative. LEFT AXILLARY VEIN: Negative. LEFT BRACHIAL VEIN: Negative. LEFT FOREARM VEINS: Negative. LEFT BASILIC VEIN (SUPERFICIAL): Negative. ADDITIONAL FINDINGS: Mild bilateral arm subcutaneous edema IMPRESSION: 1. No sonographic evidence for DVT in the right or left upper extremity. Signer Name: Ponce Bo MD Signed: 02/11/2021 7:20 PM Workstation Name: [id number]
[2021-02-11 22:40] LABS: Hemoglobin 6.7 gm/dl (11.8-15.2)
[2021-02-11 22:42] LABS: Hematocrit 19.9 % (35.5-45.6)
[2021-02-11] MEDS ORDERED: SODIUM CHLORIDE 0.9% 500 ML 500 ML IV ONE (22:46)
[2021-02-12] MEDS: fentaNYL DRIP Premix 2,000 MCG/100 ML BAG IV SCH ×6 (01:18→21:00)
[2021-02-12] MEDS: SODIUM BICARBONATE 150 MEQ in DEXTROSE 5% IN WATER 1,000 ML IV SCH ×3 (01:18→21:01)
[2021-02-12] MEDS: dexmedeTOMIDine 1,000 MCG in SODIUM CHLORIDE 0.9% 250ML 250 ML IV SCH ×4 (03:39→21:01)
[2021-02-12 05:00] LABS: ABG Base Excess 7.7 mmol/L (-2.0-3.0); ABG HCO3 32.5 mmol/L (20.0-26.0); ABG Methemoglobin 0.6 % (0.0-1.5); ABG Oxygen Saturation 97.6 % (95.0-99.0); ABG PCO2 51.2 mm Hg; ABG PH 7.421 pH Units (7.350-7.450)
[2021-02-12 06:53] LABS: Hematocrit 20.7 % (35.5-45.6); Hemoglobin 7.2 gm/dl (11.8-15.2); Mean Corpuscular HGB Conc 35 % (32-34); Mean Corpuscular Volume 94 fl (84-94); Platelet Count 234 K/mm3 (140-440); Red Blood Count 2.21 M/mm3 (3.65-5.03); Red Cell Distribution Width 14.5 % (13.2-15.2)
--- NOTE | 2021-02-12 08:53 | Progress Note ---
Assessment and Plan Acute Hypoxic respiratory failure COVID-19 PNA Severe sepsis with septic shock Acute kidney injury secondary to ATN Hyperkalemia Hypernatremia DM2 on insulin Anemia Plan: Hemodialysis ordered again today for UF and clearance Initiated on HD on 02/03/21 S/P Right IJ Trialysis dialysis catheter placement by Dr Reddy Strict I&O's monitoring, no urine output recorded Renally dose medications Assess dialysis needs daily Monitor for renal recovery Subjective Date of service: 02/12/21 Principal diagnosis: DEISI Interval history: received HD yesterday Objective - Vital Signs Vital signs: Vital Signs - 12hr 02/11/21 02/11/21 02/11/21 21:00 21:15 21:30 Temperature Pulse Rate 105 H 104 H 104 H Pulse Rate [ From Monitor] Respiratory 29 H 35 H 35 H Rate Blood Pressure 155/80 155/75 142/75 O2 Sat by Pulse 92 91 92 Oximetry 02/11/21 02/11/21 02/11/21 21:45 22:00 22:15 Temperature Pulse Rate 104 H 102 H 102 H Pulse Rate [ From Monitor] Respiratory 35 H 35 H 34 H Rate Blood Pressure 139/71 125/65 117/64 O2 Sat by Pulse 92 90 91 Oximetry 02/11/21 02/11/21 02/11/21 22:30 22:45 23:00 Temperature Pulse Rate 100 H 100 H 99 H Pulse Rate [ From Monitor] Respiratory 36 H 34 H 34 H Rate Blood Pressure 115/66 116/65 114/63 O2 Sat by Pulse 92 91 92 Oximetry 02/11/21 02/11/21 02/11/21 23:11 23:20 23:21 Temperature 98.7 F Pulse Rate 98 H 97 H Pulse Rate [ From Monitor] Respiratory 34 H 34 H Rate Blood Pressure 114/63 119/65 O2 Sat by Pulse 93 93 Oximetry 02/11/21 02/11/21 02/11/21 23:30 23:41 23:42 Temperature Pulse Rate 98 H 96 H 97 H Pulse Rate [ From Monitor] Respiratory 34 H 34 H 34 H Rate Blood Pressure 116/64 116/64 119/65 O2 Sat by Pulse 94 93 93 Oximetry 02/11/21 02/11/21 02/11/21 23:51 23:56 23:57 Temperature 99.1 F Pulse Rate 97 H 96 H Pulse Rate [ From Monitor] Respiratory 34 H 34 H Rate Blood Pressure 119/67 119/65 O2 Sat by Pulse 93 93 Oximetry 02/12/21 02/12/21 02/12/21 00:00 00:15 00:18 Temperature 99.1 F 99.3 F Pulse Rate 97 H 99 H Pulse Rate [ 97 H From Monitor] Respiratory 34 H 36 H Rate Blood Pressure 122/66 122/66 O2 Sat by Pulse 93 94 Oximetry 02/12/21 02/12/21 02/12/21 00:30 00:45 00:48 Temperature 99.3 F Pulse Rate 99 H 98 H Pulse Rate [ From Monitor] Respiratory 35 H 34 H Rate Blood Pressure 137/74 134/68 O2 Sat by Pulse 95 93 Oximetry 02/12/21 02/12/21 02/12/21 01:00 01:11 01:15 Temperature Pulse Rate 96 H 96 H 95 H Pulse Rate [ From Monitor] Respiratory 34 H 34 H Rate Blood Pressure 127/68 127/68 123/69 O2 Sat by Pulse 94 93 94 Oximetry 02/12/21 02/12/21 02/12/21 01:18 01:30 01:45 Temperature 99.1 F Pulse Rate 98 H 100 H Pulse Rate [ From Monitor] Respiratory 35 H 35 H Rate Blood Pressure 140/77 147/77 O2 Sat by Pulse 93 93 Oximetry 02/12/21 02/12/21 02/12/21 01:48 02:00 02:15 Temperature 99.3 F Pulse Rate 98 H 97 H Pulse Rate [ From Monitor] Respiratory 36 H 34 H Rate Blood Pressure 143/78 133/72 O2 Sat by Pulse 93 95 Oximetry 02/12/21 02/12/21 02/12/21 02:30 02:38 02:45 Temperature 99.3 F Pulse Rate 96 H 96 H Pulse Rate [ From Monitor] Respiratory 34 H 34 H Rate Blood Pressure 128/71 128/70 O2 Sat by Pulse 93 92 Oximetry 02/12/21 02/12/21 02/12/21 03:00 03:15 03:30 Temperature Pulse Rate 97 H 100 H 98 H Pulse Rate [ From Monitor] Respiratory 34 H 35 H 34 H Rate Blood Pressure 130/74 141/78 136/72 O2 Sat by Pulse 93 93 93 Oximetry 02/12/21 02/12/21 02/12/21 03:45 04:00 04:15 Temperature 100.0 F H Pulse Rate 97 H 97 H 104 H Pulse Rate [ From Monitor] Respiratory 34 H 33 H 34 H Rate Blood Pressure 128/70 134/62 134/62 O2 Sat by Pulse 94 93 Oximetry 02/12/21 02/12/21 02/12/21 04:30 04:45 05:00 Temperature Pulse Rate 105 H 103 H 103 H Pulse Rate [ From Monitor] Respiratory 33 H 34 H 34 H Rate Blood Pressure 121/69 120/68 121/68 O2 Sat by Pulse 91 92 92 Oximetry 02/12/21 02/12/21 02/12/21 05:15 05:30 05:32 Temperature Pulse Rate 101 H 100 H 100 H Pulse Rate [ From Monitor] Respiratory 34 H 32 H Rate Blood Pressure 115/63 115/66 115/66 O2 Sat by Pulse 92 92 92 Oximetry 02/12/21 02/12/21 02/12/21 05:45 06:00 06:15 Temperature Pulse Rate 100 H 98 H 96 H Pulse Rate [ From Monitor] Respiratory 32 H 34 H 34 H Rate Blood Pressure 122/67 114/66 111/65 O2 Sat by Pulse 92 97 97 Oximetry 02/12/21 02/12/21 02/12/21 06:30 06:45 07:00 Temperature Pulse Rate 94 H 93 H 93 H Pulse Rate [ From Monitor] Respiratory 34 H 34 H 34 H Rate Blood Pressure 109/61 107/62 106/62 O2 Sat by Pulse 98 97 97 Oximetry 02/12/21 02/12/21 07:25 07:51 Temperature 99.6 F Pulse Rate 91 H Pulse Rate [ From Monitor] Respiratory 34 H Rate Blood Pressure O2 Sat by Pulse 97 Oximetry - Lab 02/12/21 06:35 02/12/21 06:35 Most recent lab results ABG pH 7.421 pH Units (7.350-7.450) 02/12/21 04:41 ABG pCO2 51.2 mm Hg 02/12/21 04:41 ABG pO2 69.0 mm Hg (80.0-90.0) L 02/12/21 04:41 ABG HCO3 32.5 mmol/L (20.0-26.0) H 02/12/21 04:41 ABG O2 Saturation 97.6 % (95.0-99.0) 02/12/21 04:41 Calcium 7.0 mg/dL (8.4-10.2) L 02/12/21 06:35 Phosphorus 3.60 mg/dL (2.5-4.5) D 02/08/21 06:00 Magnesium 2.20 mg/dL (1.7-2.3) 02/04/21 04:45 Urine Creatinine 53.0 mg/dL (0.1-20.0) H 01/30/21 12:00 Urine Sodium 28 mmol/L 01/22/21 22:39 Medications & Allergies - Medications Allergies/Adverse Reactions: Allergies No Known Allergies Allergy (Unverified 03/12/20 13:41) Home Medications: Home Medications Medication Instructions Recorded Confirmed Last Taken Type Clindamycin [Clindamycin CAP] 300 mg PO Q8H #21 cap 03/12/20 Unknown Rx Insulin NPH/Regular [Novolin 70/30] 18 unit SUB-Q TIDAC #1 vial 03/12/20 Unknown Rx Syringe-Needle,Insulin,0.5 ml 1 box MC TID #1 box 03/12/20 Unknown Rx [Insulin Syringe/Needle 0.5 ML] Active Medications: Generic Name Dose Route Start Last Admin Trade Name Freq PRN Reason Stop Dose Admin Acetaminophen 650 mg 01/23/21 02:25 02/11/21 18:20 Acetaminophen 650 Mg Rect Supp [place] 650 mg Q4H PRN Administration Pain, Mild (1-3) Acetaminophen 650 mg 01/24/21 12:58 02/11/21 04:09 Acetaminophen 325 Mg/10.15 Ml Oral Liqd Unit Dose FEEDTUBE 650 mg Q6H PRN Administration Pain, Mild (1-3) Lipase/Protease/Amylase 1 each 01/26/21 14:25 Lipase 10,500/Protease 25,000/Amylase 43,750 (Units) Dr Claudio FEEDTUBE PRN PRN For Clogged Feeding Tube Dextrose 50 ml 01/27/21 07:24 Dextrose 50% In Water (25gm) 50 Ml Syringe IV Q30MIN PRN Hypoglycemia Protocol Enoxaparin Sodium 120 mg 01/26/21 11:00 02/11/21 09:06 Enoxaparin 120 Mg/0.8 Ml Inj SUB-Q 120 mg Q24HR CECE Administration Famotidine 20 mg 02/10/21 10:00 02/11/21 09:06 Famotidine 20 Mg Tab PO 20 mg DAILY CECE Administration Fentanyl 50 mcg 01/22/21 22:39 02/10/21 13:46 Fentanyl 100 Mcg/2 Ml Inj IV 50 mcg Q10MIN PRN Administration ANALGESIA Heparin Sodium (Porcine) 2,000 unit 02/11/21 09:38 Heparin 10,000 Units/10 Ml Vial IV SAGRARIO PRN hemodialysis Hydrophilic Ointment 1 applic 01/22/21 22:39 Lip Therapy Vaseline TP Q2HR PRN Dry Lips Fentanyl Citrate 2,000 mcg in 100 mls @ 6.124 mls/hr 01/22/21 23:00 02/12/21 05:48 Fentanyl Drip Premix IV 4 mcg/kg/hr TITR CECE 24.494 mls/hr Administration Protocol 1 MCG/KG/HR Propofol 1,000 mg in 100 mls @ 3.674 mls/hr 01/22/21 23:45 02/06/21 18:37 Diprivan 10 Mg/Ml IV 0 mcg/kg/min TITR CECE 0 mls/hr Titration Protocol 5 MCG/KG/MIN Norepinephrine 4 mg in 250 mls @ 7.5 mls/hr 01/28/21 14:00 02/08/21 06:08 Levophed Drip 4 Mg/Ns 250 Ml IV 0 mcg/min TITR CECE 0 mls/hr Titration Protocol 2 MCG/MIN Dexmedetomidine HCl 1,000 mcg/ 260 mls @ 6.368 mls/hr 01/30/21 20:00 02/12/21 03:39 Sodium Chloride IV 1.4 mcg/kg/hr TITRATE CECE 44.579 mls/hr Administration Protocol 0.2 MCG/KG/HR Sodium Bicarbonate 150 meq/ 1,150 mls @ 100 mls/hr 02/06/21 11:30 02/12/21 01:18 Dextrose IV 100 mls/hr DIRECT CECE Administration Lorazepam 100 mg/ Sodium 100 mls @ 1 mls/hr 02/06/21 19:00 02/10/21 01:00 Chloride/ Miscellaneous IV 1 mg/hr Information TITR CECE 1 mls/hr Titration Protocol 1 MG/HR Sodium Chloride 100 mls @ 999 mls/hr 02/11/21 09:38 Nacl 0.9% IV SAGRARIO PRN Hypotension Multi-Ingred Cream/Lotion/Oil/Oint 1 applic 01/22/21 22:39 02/01/21 09:33 Mineral Oil/Petrolatum, White Ophth Oint 3.5 Gm OU 1 applic Q4HR PRN Administration Dry Eye(s) Ondansetron HCl 4 mg 01/23/21 02:17 Ondansetron 4 Mg/2 Ml Inj IV Q8H PRN Nausea And Vomiting Simple Syrup 15 ml 01/26/21 14:25 Simple Syrup 15 Ml FEEDTUBE PRN PRN Hypoglycemia Simple Syrup 30 ml 01/26/21 14:25 Simple Syrup 15 Ml FEEDTUBE PRN PRN Hypoglycemia Sodium Bicarbonate 325 mg 01/26/21 14:25 Sodium Bicarbonate 325 Mg Tab FEEDTUBE PRN PRN For Clogged Feeding Tube
--- NOTE | 2021-02-12 08:58 | Progress Note ---
Assessment and Plan 60 y/o male with ARDS secondary most likely to COVID 19 pneumonia. 02/12/21: HD again today. Had a 12 second run of VTACH today as well. Stable. K is low, checking mag levels. Will alert Renal so they can adjust bath as needed. Post HD will start to wean FiO2 again. Unable to prone as patient does not tolerate. Repeat blood cultures negative and first set only showing Coag Negative Staph. Prognosis still remains very very guarded to poor. Will consider restarting Diprovan tomorrow. Patient now intubated for 20 days now but not candidate for trach yet given elevated PEEP and FiO2 levels but did discuss on rounds. 02/11/21: Vascath placed today for HD. Orders already in. Wean FiO2 for sats >88%. Abx per ID. Repeat cultures so far negative. Given persistent fevers, will check upper ext dopplers. Prognosis still remains guarded. 02/10/21: Triglycerides improved but current sedation is adequate so will hold on stopping ativan to add propofol back. Awaiting Labs from this morning. Plan to replace HD catheter tomorrow morning as early as possible. Fever curve is trending down. Continue bicarb drip for now. Prognosis remains guarded. WIll speak with family tomorrow to update. 02/09/21: Repeat Triglycerides today. Follow up repeat blood cultures. Given continued fever will hold on replacing vascath today. If fever free the next 24 hours, can place in the morning or Tuesday morning. Will likely need blood with next HD session. Continue bicarb drip to help manage respiratory as well as metabolic acidosis. Wean FiO2 for sats >88% and PaO2 >55. Overall prognosis remains guarded to poor. 02/08/21: Picc out today. Will repeat culture if patient spikes again today. Plan to replace HD catheter either late tomorrow or Tuesday. Continue current level of sedation. Abx therapy per ID. Wean FiO2 as tolerated, doubt will be able to do much until we can resume HD. Guarded prognosis. Replaced potassium. Will need to check in the morning. Will repeat K later this afternoon. 02/07/21: Biggest issue now is that patient's numbers are better with HD but now with bacteremia, concern for line infection. ID is correct in requesting line holiday. Has a picc and an Right IJ Dialysis catheter with 3 ports. Currently getting HD today. Have not seen renal yet. Will pull right IJ line post HD and plan to replace it Tuesday evening or Tuesday. Continue bicarb drip for now and will keep picc as patient has been requiring levophed. If able to be weaned off levophed, will remove picc either tomorrow or Tuesday. Continue Ativan, Precedex and Fent drips, repeat Triglycerides on Tuesday. Very very guarded prognosis. Will remove Black today as well. 02/06/21: Will add bicarb drip at 125/hr. Giving 2 amps of NaHCO3 push now. Will repeat ABG this afternoon, may just ask for Art Line if possible. HD today per renal and I spoke with them about the bicarb drip. Long discussion with Sister, Significant and other and another family member on the phone on yes . I tried my best to explain the severity of the clinical state but not sure if they fully understood. The patient is very very ill and history suggests that his outcome will be poor (intubated with covid and renal failure on dialysis). This was expressed with the family. Will continue all supportive measures. Checking triglyceride levels today. 02/05/21: WIll increase PEEP to 16. Can increase pressors if needed for BP control during HD. Follow up cultures. If negative will scan legs and arms again for VTE. Repeat ABG at 1400 today. Will speak with sister and Girlfriend on phone today. 02/04/21: HD again today per renal notes. Likely will need daily HD. New fev ers. Will draw blood and urine cultures if able to still make urine.. Repeat CXR. May need to check dopplers if all of those studies are negative. Wean FIO2 as tolerated. Unable to tolerate proning. Guarded to poor prognosis. 02/03/21: HD today per renal. Wean FiO2 as tolerated. No further proning as patient cannot tolerate it, however with volume removal, may consider in the future. Use pressors to keep MAPs 65 and greater for HD purporses so volume can be removed. (IJ was wide open (filled with blood)) with patient sitting up at 45 degrees. Guarded prognosis. 02/02/21: After renal speaks with family, will place vascath today. Agree with bicarb drip but will order some pushes now to help with pH. Overall prognosis is very very guarded to poor now that patient is COVID positive and requiring renal replacement therapy. Mortality is very high in these patients. Continue steroid therapy. Unable to tolerate proning. 01/30/21: Will plan for proning later today. Goal will be at least 12hrs but long is okay. Speaking with pharmacy to see if we can get paralytic for a longer period of time. Regardless will prone. Continue heavy sedation. BP stable. Continue steroids. Very very guarded prognosis. 01/29/21: will increase tidal volume and/or increase respiratory rate. Repeat ABG this afternoon. Continue paralytic and adequate sedation. Continue steroid and remdesivir, follow up any renal recs. Prognosis remains guarded. Wean Fio2 for sats >88% 01/28/21: Increased PEEP to 16. Will paralyze patient today and increase sedation. Ordering picc line for possible vasopressor therapy needs. Continue BID steroids. Renal function is slightly better today with fluids but could be making oxygenation worse. Not able to diurese. Still making urine. Continue Remdesivir. Watch for fever curve. If not improvement in the next 24 hours with paralyzing, will prone tomorrow morning. 01/27/21: Continue PEEP at 14. No weaning until FiO2 is at or below 40-45%. Continue anticoagulation. Getting Remdesivir now. Continue BID steroids. Renal has increased the fluids. Monitor urine output and renal function. Overall prognosis is very very guarded, especially if renal status worsens. 01/26/21: Increase PEEP to 14. Will add Precedex therapy. If patient does not respond to increases in PEEP may need to prone. Will place patient on lovenox and will feed patient. Remdesivir coming. Continue BID steroids. Prognosis is guarded. 01/25/21: Hold on proning today. Continue BID steroids. ABG this AM was adequate. Pending abg tomorrow, may increase PEEP if not able to wean FiO2 any further. Per charting Remdesivir to arrive tomorrow. Guarded prognosis. 01/24/21: Continue BID steroids. No abg done this am but able to wean FiO2. Will obtain ABG in the am. Hold on proning for right now. Renal following, would like to diurese but they are given fluids for deisi. Agree with ID assessment and note. Guarded prognosis. 1. Increase steroids to BID given size 2. Check with ID to see if he is a candidate for remdesivir or any other experiemental therapy 3. Hold on proning for right now 4. Renal consulted and giving IVF's currently Guarded prognosis. CCT 31 minutes. Subjective Date of service: 02/12/21 Principal diagnosis: DEISI Interval history: No acute events. Had HD on yesterday. Tolerated well. No fevers in the last 24 hours. No vasopressors. ABG this am on 75% was decent. PaO2 of 69. Peep remains at 16. Objective Vital Signs - 12hr 02/11/21 02/11/21 02/11/21 21:00 21:15 21:30 Temperature Pulse Rate 105 H 104 H 104 H Pulse Rate [ From Monitor] Respiratory 29 H 35 H 35 H Rate Blood Pressure 155/80 155/75 142/75 O2 Sat by Pulse 92 91 92 Oximetry 02/11/21 02/11/21 02/11/21 21:45 22:00 22:15 Temperature Pulse Rate 104 H 102 H 102 H Pulse Rate [ From Monitor] Respiratory 35 H 35 H 34 H Rate Blood Pressure 139/71 125/65 117/64 O2 Sat by Pulse 92 90 91 Oximetry 02/11/21 02/11/21 02/11/21 22:30 22:45 23:00 Temperature Pulse Rate 100 H 100 H 99 H Pulse Rate [ From Monitor] Respiratory 36 H 34 H 34 H Rate Blood Pressure 115/66 116/65 114/63 O2 Sat by Pulse 92 91 92 Oximetry 02/11/21 02/11/21 02/11/21 23:11 23:20 23:21 Temperature 98.7 F Pulse Rate 98 H 97 H Pulse Rate [ From Monitor] Respiratory 34 H 34 H Rate Blood Pressure 114/63 119/65 O2 Sat by Pulse 93 93 Oximetry 02/11/21 02/11/21 02/11/21 23:30 23:41 23:42 Temperature Pulse Rate 98 H 96 H 97 H Pulse Rate [ From Monitor] Respiratory 34 H 34 H 34 H Rate Blood Pressure 116/64 116/64 119/65 O2 Sat by Pulse 94 93 93 Oximetry 02/11/21 02/11/21 02/11/21 23:51 23:56 23:57 Temperature 99.1 F Pulse Rate 97 H 96 H Pulse Rate [ From Monitor] Respiratory 34 H 34 H Rate Blood Pressure 119/67 119/65 O2 Sat by Pulse 93 93 Oximetry 02/12/21 02/12/21 02/12/21 00:00 00:15 00:18 Temperature 99.1 F 99.3 F Pulse Rate 97 H 99 H Pulse Rate [ 97 H From Monitor] Respiratory 34 H 36 H Rate Blood Pressure 122/66 122/66 O2 Sat by Pulse 93 94 Oximetry 02/12/21 02/12/21 02/12/21 00:30 00:45 00:48 Temperature 99.3 F Pulse Rate 99 H 98 H Pulse Rate [ From Monitor] Respiratory 35 H 34 H Rate Blood Pressure 137/74 134/68 O2 Sat by Pulse 95 93 Oximetry 02/12/21 02/12/21 02/12/21 01:00 01:11 01:15 Temperature Pulse Rate 96 H 96 H 95 H Pulse Rate [ From Monitor] Respiratory 34 H 34 H Rate Blood Pressure 127/68 127/68 123/69 O2 Sat by Pulse 94 93 94 Oximetry 02/12/21 02/12/21 02/12/21 01:18 01:30 01:45 Temperature 99.1 F Pulse Rate 98 H 100 H Pulse Rate [ From Monitor] Respiratory 35 H 35 H Rate Blood Pressure 140/77 147/77 O2 Sat by Pulse 93 93 Oximetry 02/12/21 02/12/21 02/12/21 01:48 02:00 02:15 Temperature 99.3 F Pulse Rate 98 H 97 H Pulse Rate [ From Monitor] Respiratory 36 H 34 H Rate Blood Pressure 143/78 133/72 O2 Sat by Pulse 93 95 Oximetry 02/12/21 02/12/21 02/12/21 02:30 02:38 02:45 Temperature 99.3 F Pulse Rate 96 H 96 H Pulse Rate [ From Monitor] Respiratory 34 H 34 H Rate Blood Pressure 128/71 128/70 O2 Sat by Pulse 93 92 Oximetry 02/12/21 02/12/21 02/12/21 03:00 03:15 03:30 Temperature Pulse Rate 97 H 100 H 98 H Pulse Rate [ From Monitor] Respiratory 34 H 35 H 34 H Rate Blood Pressure 130/74 141/78 136/72 O2 Sat by Pulse 93 93 93 Oximetry 02/12/21 02/12/21 02/12/21 03:45 04:00 04:15 Temperature 100.0 F H Pulse Rate 97 H 97 H 104 H Pulse Rate [ From Monitor] Respiratory 34 H 33 H 34 H Rate Blood Pressure 128/70 134/62 134/62 O2 Sat by Pulse 94 93 Oximetry 02/12/21 02/12/21 02/12/21 04:30 04:45 05:00 Temperature Pulse Rate 105 H 103 H 103 H Pulse Rate [ From Monitor] Respiratory 33 H 34 H 34 H Rate Blood Pressure 121/69 120/68 121/68 O2 Sat by Pulse 91 92 92 Oximetry 02/12/21 02/12/21 02/12/21 05:15 05:30 05:32 Temperature Pulse Rate 101 H 100 H 100 H Pulse Rate [ From Monitor] Respiratory 34 H 32 H Rate Blood Pressure 115/63 115/66 115/66 O2 Sat by Pulse 92 92 92 Oximetry 02/12/21 02/12/21 02/12/21 05:45 06:00 06:15 Temperature Pulse Rate 100 H 98 H 96 H Pulse Rate [ From Monitor] Respiratory 32 H 34 H 34 H Rate Blood Pressure 122/67 114/66 111/65 O2 Sat by Pulse 92 97 97 Oximetry 02/12/21 02/12/21 02/12/21 06:30 06:45 07:00 Temperature Pulse Rate 94 H 93 H 93 H Pulse Rate [ From Monitor] Respiratory 34 H 34 H 34 H Rate Blood Pressure 109/61 107/62 106/62 O2 Sat by Pulse 98 97 97 Oximetry 02/12/21 02/12/21 07:25 07:51 Temperature 99.6 F Pulse Rate 91 H Pulse Rate [ From Monitor] Respiratory 34 H Rate Blood Pressure O2 Sat by Pulse 97 Oximetry Constitutional: comatose Eyes: non-icteric ENT: other (orally intubated and sedated) Neck: supple Effort: mildly labored Ascultation: Bilateral: clear Percussion: Bilateral: not dull Cardiovascular: regular rate and rhythm Gastrointestinal: normoactive bowel sounds CBC and BMP: 02/12/21 06:35 02/12/21 06:35 ABG, PT/INR, D-dimer: ABG ABG pH 7.421 pH Units (7.350-7.450) 02/12/21 04:41 POC ABG pCO2 72.2 mmHg (32.0-48.0) H 02/11/21 04:05 ABG pCO2 51.2 mm Hg 02/12/21 04:41 POC ABG pO2 72.3 mmHg (83-108) L 02/11/21 04:05 ABG pO2 69.0 mm Hg (80.0-90.0) L 02/12/21 04:41 POC ABG HCO3 35.3 02/11/21 04:05 ABG O2 Saturation 97.6 % (95.0-99.0) 02/12/21 04:41 PT/INR, D-dimer PT 14.9 Sec. (12.2-14.9) 02/11/21 08:27 INR 1.17 (0.87-1.13) H 02/11/21 08:27 D-Dimer 1930.92 ng/mlDDU (0-234) H 02/11/21 08:27 Abnormal lab findings: Abnormal Labs 01/22/21 01/22/21 01/22/21 22:39 22:57 22:57 WBC RBC Hgb Hct MCV MCH MCHC RDW Plt Count Lymph % (Auto) 6.6 L Lymph # (Auto) 0.5 L Seg Neutrophils % 87.6 H Seg Neuts % (Manual) Lymphocytes % (Manual) Nucleated RBC % Seg Neutrophils # Seg Neutrophils # Man Lymphocytes # (Manual) Eosinophils # (Manual) INR D-Dimer ABG pH POC ABG pCO2 POC ABG pO2 ABG pO2 ABG HCO3 ABG O2 Saturation ABG Base Excess ABG Hemoglobin ABG Oxyhemoglobin ABG Sodium ABG Potassium ABG Chloride ABG Glucose Oxyhemoglobin Carboxyhemoglobin Sodium 129 L Potassium 3.4 L Chloride 90.4 L Carbon Dioxide BUN 34 H Creatinine 1.5 H Glucose 146 H POC Glucose Hemoglobin A1c Lactic Acid Calcium 7.8 L Phosphorus Magnesium Ferritin Total Bilirubin AST 75 H ALT 57 H Lactate Dehydrogenase C-Reactive Protein Albumin 2.9 L Triglycerides Arterial Blood Glucose Arterial Blood Ionized Calcium Urine Creatinine 301.2 H Coronavirus (PCR) Crossmatch 01/22/21 01/22/21 01/22/21 22:57 22:57 22:57 WBC RBC Hgb Hct MCV MCH MCHC RDW Plt Count Lymph % (Auto) Lymph # (Auto) Seg Neutrophils % Seg Neuts % (Manual) Lymphocytes % (Manual) Nucleated RBC % Seg Neutrophils # Seg Neutrophils # Man Lymphocytes # (Manual) Eosinophils # (Manual) INR D-Dimer 1173.89 H ABG pH POC ABG pCO2 POC ABG pO2 ABG pO2 ABG HCO3 ABG O2 Saturation ABG Base Excess ABG Hemoglobin ABG Oxyhemoglobin ABG Sodium ABG Potassium ABG Chloride ABG Glucose Oxyhemoglobin Carboxyhemoglobin Sodium Potassium Chloride Carbon Dioxide BUN Creatinine Glucose 149 H POC Glucose Hemoglobin A1c Lactic Acid 2.10 H* Calcium Phosphorus Magnesium Ferritin Total Bilirubin AST ALT Lactate Dehydrogenase 685 H C-Reactive Protein 30.40 H Albumin Triglycerides Arterial Blood Glucose Arterial Blood Ionized Calcium Urine Creatinine Coronavirus (PCR) Crossmatch 01/22/21 01/23/21 01/23/21 22:57 08:41 10:01 WBC RBC Hgb Hct MCV MCH MCHC RDW Plt Count Lymph % (Auto) Lymph # (Auto) Seg Neutrophils % Seg Neuts % (Manual) Lymphocytes % (Manual) Nucleated RBC % Seg Neutrophils # Seg Neutrophils # Man Lymphocytes # (Manual) Eosinophils # (Manual) INR D-Dimer ABG pH POC ABG pCO2 POC ABG pO2 ABG pO2 ABG HCO3 ABG O2 Saturation ABG Base Excess ABG Hemoglobin ABG Oxyhemoglobin ABG Sodium ABG Potassium ABG Chloride ABG Glucose Oxyhemoglobin Carboxyhemoglobin Sodium 131 L Potassium Chloride 88.7 L Carbon Dioxide 18 L BUN 36 H Creatinine 1.6 H Glucose 147 H POC Glucose Hemoglobin A1c Lactic Acid Calcium 7.5 L Phosphorus Magnesium Ferritin 1207.0 H Total Bilirubin AST ALT Lactate Dehydrogenase C-Reactive Protein Albumin Triglycerides Arterial Blood Glucose Arterial Blood Ionized Calcium Urine Creatinine Coronavirus (PCR) Positive A Crossmatch 01/23/21 01/23/21 01/24/21 20:49 Unknown 00:10 WBC RBC Hgb Hct MCV MCH MCHC RDW Plt Count Lymph % (Auto) Lymph # (Auto) Seg Neutrophils % Seg Neuts % (Manual) Lymphocytes % (Manual) Nucleated RBC % Seg Neutrophils # Seg Neutrophils # Man Lymphocytes # (Manual) Eosinophils # (Manual) INR D-Dimer ABG pH POC ABG pCO2 POC ABG pO2 ABG pO2 165.4 H ABG HCO3 ABG O2 Saturation ABG Base Excess -2.5 L ABG Hemoglobin ABG Oxyhemoglobin ABG Sodium ABG Potassium ABG Chloride ABG Glucose Oxyhemoglobin Carboxyhemoglobin Sodium 130 L Potassium Chloride 91.0 L Carbon Dioxide 20 L BUN 52 H Creatinine 3.8 H D Glucose 150 H POC Glucose 125 H Hemoglobin A1c Lactic Acid Calcium 8.0 L Phosphorus Magnesium Ferritin Total Bilirubin AST 42 H ALT Lactate Dehydrogenase C-Reactive Protein Albumin 2.4 L Triglycerides Arterial Blood Glucose Arterial Blood Ionized Calcium Urine Creatinine Coronavirus (PCR) Crossmatch 01/24/21 01/24/21 01/24/21 05:05 05:05 05:05 WBC 14.0 H RBC Hgb Hct MCV 95 H MCH 33 H MCHC RDW Plt Count Lymph % (Auto) Lymph # (Auto) Seg Neutrophils % Seg Neuts % (Manual) 91.0 H Lymphocytes % (Manual) 4.0 L Nucleated RBC % Seg Neutrophils # Seg Neutrophils # Man 12.7 H Lymphocytes # (Manual) 0.6 L Eosinophils # (Manual) INR D-Dimer 6159.48 H ABG pH POC ABG pCO2 POC ABG pO2 ABG pO2 ABG HCO3 ABG O2 Saturation ABG Base Excess ABG Hemoglobin ABG Oxyhemoglobin ABG Sodium ABG Potassium ABG Chloride ABG Glucose Oxyhemoglobin Carboxyhemoglobin Sodium Potassium Chloride Carbon Dioxide BUN Creatinine Glucose POC Glucose Hemoglobin A1c Lactic Acid Calcium Phosphorus Magnesium Ferritin 1178.0 H Total Bilirubin AST ALT Lactate Dehydrogenase C-Reactive Protein Albumin Triglycerides Arterial Blood Glucose Arterial Blood Ionized Calcium Urine Creatinine Coronavirus (PCR) Crossmatch 01/24/21 01/24/21 01/24/21 05:05 05:05 05:05 WBC RBC Hgb Hct MCV MCH MCHC RDW Plt Count Lymph % (Auto) Lymph # (Auto) Seg Neutrophils % Seg Neuts % (Manual) Lymphocytes % (Manual) Nucleated RBC % Seg Neutrophils # Seg Neutrophils # Man Lymphocytes # (Manual) Eosinophils # (Manual) INR D-Dimer ABG pH POC ABG pCO2 POC ABG pO2 ABG pO2 ABG HCO3 ABG O2 Saturation ABG Base Excess ABG Hemoglobin ABG Oxyhemoglobin ABG Sodium ABG Potassium ABG Chloride ABG Glucose Oxyhemoglobin Carboxyhemoglobin Sodium 132 L Potassium Chloride 93.1 L Carbon Dioxide 21 L BUN 57 H Creatinine 3.7 H Glucose 133 H POC Glucose Hemoglobin A1c Lactic Acid 2.20 H* Calcium 7.7 L Phosphorus Magnesium Ferritin Total Bilirubin AST ALT Lactate Dehydrogenase 658 H C-Reactive Protein 33.20 H Albumin 2.4 L Triglycerides Arterial Blood Glucose Arterial Blood Ionized Calcium Urine Creatinine Coronavirus (PCR) Crossmatch 01/24/21 01/24/21 01/24/21 05:34 06:00 17:35 WBC RBC Hgb Hct MCV MCH MCHC RDW Plt Count Lymph % (Auto) Lymph # (Auto) Seg Neutrophils % Seg Neuts % (Manual) Lymphocytes % (Manual) Nucleated RBC % Seg Neutrophils # Seg Neutrophils # Man Lymphocytes # (Manual) Eosinophils # (Manual) INR D-Dimer ABG pH POC ABG pCO2 POC ABG pO2 ABG pO2 ABG HCO3 ABG O2 Saturation ABG Base Excess ABG Hemoglobin ABG Oxyhemoglobin ABG Sodium ABG Potassium ABG Chloride ABG Glucose Oxyhemoglobin Carboxyhemoglobin Sodium Potassium Chloride Carbon Dioxide BUN Creatinine Glucose POC Glucose 136 H 137 H Hemoglobin A1c Lactic Acid Calcium Phosphorus Magnesium 2.80 H Ferritin Total Bilirubin AST ALT Lactate Dehydrogenase C-Reactive Protein Albumin Triglycerides Arterial Blood Glucose Arterial Blood Ionized Calcium Urine Creatinine Coronavirus (PCR) Crossmatch 01/25/21 01/25/21 01/25/21 04:15 05:40 05:40 WBC RBC Hgb Hct MCV 95 H MCH 33 H MCHC 35 H RDW Plt Count Lymph % (Auto) Lymph # (Auto) Seg Neutrophils % Seg Neuts % (Manual) 95.0 H Lymphocytes % (Manual) 3.0 L Nucleated RBC % Seg Neutrophils # Seg Neutrophils # Man 7.8 H Lymphocytes # (Manual) 0.2 L Eosinophils # (Manual) INR D-Dimer ABG pH POC ABG pCO2 POC ABG pO2 63.2 L ABG pO2 ABG HCO3 ABG O2 Saturation ABG Base Excess ABG Hemoglobin ABG Oxyhemoglobin 89.6 L ABG Sodium ABG Potassium ABG Chloride ABG Glucose 165 H Oxyhemoglobin Carboxyhemoglobin 0.3 L Sodium Potassium Chloride Carbon Dioxide BUN 67 H Creatinine 3.4 H Glucose 153 H POC Glucose Hemoglobin A1c Lactic Acid Calcium 7.5 L Phosphorus Magnesium Ferritin Total Bilirubin 1.40 H AST 62 H ALT Lactate Dehydrogenase C-Reactive Protein Albumin 2.6 L Triglycerides Arterial Blood Glucose 165 H Arterial Blood Ionized Calcium 4.3 L Urine Creatinine Coronavirus (PCR) Crossmatch 01/25/21 01/25/21 01/25/21 05:59 12:00 17:17 WBC RBC Hgb Hct MCV MCH MCHC RDW Plt Count Lymph % (Auto) Lymph # (Auto) Seg Neutrophils % Seg Neuts % (Manual) Lymphocytes % (Manual) Nucleated RBC % Seg Neutrophils # Seg Neutrophils # Man Lymphocytes # (Manual) Eosinophils # (Manual) INR D-Dimer ABG pH POC ABG pCO2 POC ABG pO2 ABG pO2 ABG HCO3 ABG O2 Saturation ABG Base Excess ABG Hemoglobin ABG Oxyhemoglobin ABG Sodium ABG Potassium ABG Chloride ABG Glucose Oxyhemoglobin Carboxyhemoglobin Sodium Potassium Chloride Carbon Dioxide BUN Creatinine Glucose POC Glucose 140 H 143 H 149 H Hemoglobin A1c Lactic Acid Calcium Phosphorus Magnesium Ferritin Total Bilirubin AST ALT Lactate Dehydrogenase C-Reactive Protein Albumin Triglycerides Arterial Blood Glucose Arterial Blood Ionized Calcium Urine Creatinine Coronavirus (PCR) Crossmatch 01/25/21 01/26/21 01/26/21 23:41 03:43 05:46 WBC RBC Hgb Hct MCV MCH MCHC RDW Plt Count Lymph % (Auto) Lymph # (Auto) Seg Neutrophils % Seg Neuts % (Manual) Lymphocytes % (Manual) Nucleated RBC % Seg Neutrophils # Seg Neutrophils # Man Lymphocytes # (Manual) Eosinophils # (Manual) INR D-Dimer ABG pH POC ABG pCO2 POC ABG pO2 70.0 L ABG pO2 ABG HCO3 ABG O2 Saturation ABG Base Excess ABG Hemoglobin ABG Oxyhemoglobin 91.9 L ABG Sodium ABG Potassium ABG Chloride 109.0 H ABG Glucose 165 H Oxyhemoglobin Carboxyhemoglobin Sodium Potassium Chloride Carbon Dioxide BUN Creatinine Glucose POC Glucose 132 H 161 H Hemoglobin A1c Lactic Acid Calcium Phosphorus Magnesium Ferritin Total Bilirubin AST ALT Lactate Dehydrogenase C-Reactive Protein Albumin Triglycerides Arterial Blood Glucose 165 H Arterial Blood Ionized Calcium 4.5 L Urine Creatinine Coronavirus (PCR) Crossmatch 01/26/21 01/26/21 01/26/21 05:47 05:47 05:47 WBC RBC Hgb Hct 35.3 L MCV 96 H MCH 33 H MCHC RDW Plt Count Lymph % (Auto) Lymph # (Auto) Seg Neutrophils % Seg Neuts % (Manual) 96.0 H Lymphocytes % (Manual) 2.0 L Nucleated RBC % Seg Neutrophils # Seg Neutrophils # Man Lymphocytes # (Manual) 0.1 L Eosinophils # (Manual) INR D-Dimer > 76509 H ABG pH POC ABG pCO2 POC ABG pO2 ABG pO2 ABG HCO3 ABG O2 Saturation ABG Base Excess ABG Hemoglobin ABG Oxyhemoglobin ABG Sodium ABG Potassium ABG Chloride ABG Glucose Oxyhemoglobin Carboxyhemoglobin Sodium Potassium Chloride Carbon Dioxide BUN 57 H Creatinine 2.2 H Glucose 185 H POC Glucose Hemoglobin A1c Lactic Acid Calcium 8.1 L Phosphorus Magnesium Ferritin Total Bilirubin AST ALT Lactate Dehydrogenase C-Reactive Protein Albumin Triglycerides Arterial Blood Glucose Arterial Blood Ionized Calcium Urine Creatinine Coronavirus (PCR) Crossmatch 01/26/21 01/26/21 01/26/21 05:47 05:47 05:47 WBC RBC Hgb Hct MCV MCH MCHC RDW Plt Count Lymph % (Auto) Lymph # (Auto) Seg Neutrophils % Seg Neuts % (Manual) Lymphocytes % (Manual) Nucleated RBC % Seg Neutrophils # Seg Neutrophils # Man Lymphocytes # (Manual) Eosinophils # (Manual) INR D-Dimer ABG pH POC ABG pCO2 POC ABG pO2 ABG pO2 ABG HCO3 ABG O2 Saturation ABG Base Excess ABG Hemoglobin ABG Oxyhemoglobin ABG Sodium ABG Potassium ABG Chloride ABG Glucose Oxyhemoglobin Carboxyhemoglobin Sodium Potassium Chloride 107.1 H Carbon Dioxide BUN 56 H Creatinine 2.2 H Glucose 188 H POC Glucose Hemoglobin A1c Lactic Acid Calcium 8.0 L Phosphorus Magnesium Ferritin 1178.0 H Total Bilirubin 1.50 H AST ALT Lactate Dehydrogenase 588 H C-Reactive Protein 40.10 H Albumin 2.2 L Triglycerides Arterial Blood Glucose Arterial Blood Ionized Calcium Urine Creatinine Coronavirus (PCR) Crossmatch 01/26/21 01/26/21 01/26/21 11:34 18:17 23:20 WBC RBC Hgb Hct MCV MCH MCHC RDW Plt Count Lymph % (Auto) Lymph # (Auto) Seg Neutrophils % Seg Neuts % (Manual) Lymphocytes % (Manual) Nucleated RBC % Seg Neutrophils # Seg Neutrophils # Man Lymphocytes # (Manual) Eosinophils # (Manual) INR D-Dimer ABG pH POC ABG pCO2 POC ABG pO2 ABG pO2 ABG HCO3 ABG O2 Saturation ABG Base Excess ABG Hemoglobin ABG Oxyhemoglobin ABG Sodium ABG Potassium ABG Chloride ABG Glucose Oxyhemoglobin Carboxyhemoglobin Sodium Potassium Chloride Carbon Dioxide BUN Creatinine Glucose POC Glucose 129 H 205 H 155 H Hemoglobin A1c Lactic Acid Calcium Phosphorus Magnesium Ferritin Total Bilirubin AST ALT Lactate Dehydrogenase C-Reactive Protein Albumin Triglycerides Arterial Blood Glucose Arterial Blood Ionized Calcium Urine Creatinine Coronavirus (PCR) Crossmatch 01/27/21 01/27/21 01/27/21 02:45 05:29 05:29 WBC RBC 3.58 L Hgb 11.7 L Hct 34.9 L MCV 97 H MCH 33 H MCHC RDW Plt Count Lymph % (Auto) Lymph # (Auto) Seg Neutrophils % Seg Neuts % (Manual) 88.0 H Lymphocytes % (Manual) 7.0 L Nucleated RBC % Seg Neutrophils # Seg Neutrophils # Man Lymphocytes # (Manual) 0.5 L Eosinophils # (Manual) INR D-Dimer ABG pH 7.319 L POC ABG pCO2 50.7 H POC ABG pO2 63.0 L ABG pO2 ABG HCO3 ABG O2 Saturation ABG Base Excess ABG Hemoglobin ABG Oxyhemoglobin ABG Sodium 145.2 H ABG Potassium 5.1 H ABG Chloride 114.0 H ABG Glucose 178 H Oxyhemoglobin Carboxyhemoglobin Sodium Potassium Chloride Carbon Dioxide BUN Creatinine Glucose POC Glucose Hemoglobin A1c Lactic Acid Calcium Phosphorus Magnesium 4.00 H Ferritin Total Bilirubin AST ALT Lactate Dehydrogenase C-Reactive Protein Albumin Triglycerides Arterial Blood Glucose 178 H Arterial Blood Ionized Calcium Urine Creatinine Coronavirus (PCR) Crossmatch 01/27/21 01/27/21 01/27/21 05:29 05:29 05:31 WBC RBC Hgb Hct MCV MCH MCHC RDW Plt Count Lymph % (Auto) Lymph # (Auto) Seg Neutrophils % Seg Neuts % (Manual) Lymphocytes % (Manual) Nucleated RBC % Seg Neutrophils # Seg Neutrophils # Man Lymphocytes # (Manual) Eosinophils # (Manual) INR D-Dimer ABG pH POC ABG pCO2 POC ABG pO2 ABG pO2 ABG HCO3 ABG O2 Saturation ABG Base Excess ABG Hemoglobin ABG Oxyhemoglobin ABG Sodium ABG Potassium ABG Chloride ABG Glucose Oxyhemoglobin Carboxyhemoglobin Sodium Potassium 5.2 H Chloride 109.6 H Carbon Dioxide BUN 67 H Creatinine 2.8 H Glucose 195 H POC Glucose 176 H Hemoglobin A1c Lactic Acid Calcium 7.9 L Phosphorus Magnesium Ferritin Total Bilirubin AST ALT Lactate Dehydrogenase C-Reactive Protein Albumin Triglycerides 160 H Arterial Blood Glucose Arterial Blood Ionized Calcium Urine Creatinine Coronavirus (PCR) Crossmatch 01/27/21 01/27/21 01/27/21 11:27 18:08 23:30 WBC RBC Hgb Hct MCV MCH MCHC RDW Plt Count Lymph % (Auto) Lymph # (Auto) Seg Neutrophils % Seg Neuts % (Manual) Lymphocytes % (Manual) Nucleated RBC % Seg Neutrophils # Seg Neutrophils # Man Lymphocytes # (Manual) Eosinophils # (Manual) INR D-Dimer ABG pH POC ABG pCO2 POC ABG pO2 ABG pO2 ABG HCO3 ABG O2 Saturation ABG Base Excess ABG Hemoglobin ABG Oxyhemoglobin ABG Sodium ABG Potassium ABG Chloride ABG Glucose Oxyhemoglobin Carboxyhemoglobin Sodium Potassium Chloride Carbon Dioxide BUN Creatinine Glucose POC Glucose 189 H 212 H 175 H Hemoglobin A1c Lactic Acid Calcium Phosphorus Magnesium Ferritin Total Bilirubin AST ALT Lactate Dehydrogenase C-Reactive Protein Albumin Triglycerides Arterial Blood Glucose Arterial Blood Ionized Calcium Urine Creatinine Coronavirus (PCR) Crossmatch 01/28/21 01/28/21 01/28/21 03:58 04:00 04:00 WBC RBC Hgb Hct MCV MCH MCHC RDW Plt Count Lymph % (Auto) Lymph # (Auto) Seg Neutrophils % Seg Neuts % (Manual) Lymphocytes % (Manual) Nucleated RBC % Seg Neutrophils # Seg Neutrophils # Man Lymphocytes # (Manual) Eosinophils # (Manual) INR D-Dimer > 45994 H ABG pH POC ABG pCO2 POC ABG pO2 52.9 L ABG pO2 ABG HCO3 ABG O2 Saturation ABG Base Excess ABG Hemoglobin ABG Oxyhemoglobin 84.1 L ABG Sodium 148.9 H ABG Potassium ABG Chloride 117.0 H ABG Glucose 194 H Oxyhemoglobin Carboxyhemoglobin Sodium Potassium Chloride Carbon Dioxide BUN Creatinine Glucose POC Glucose Hemoglobin A1c Lactic Acid Calcium Phosphorus Magnesium Ferritin Total Bilirubin AST ALT Lactate Dehydrogenase 679 H C-Reactive Protein 17.10 H Albumin Triglycerides Arterial Blood Glucose 194 H Arterial Blood Ionized Calcium Urine Creatinine Coronavirus (PCR) Crossmatch 01/28/21 01/28/21 01/28/21 04:00 05:00 06:00 WBC RBC 3.59 L Hgb 11.6 L Hct 34.8 L MCV 97 H MCH MCHC RDW Plt Count Lymph % (Auto) Lymph # (Auto) Seg Neutrophils % Seg Neuts % (Manual) 96.0 H Lymphocytes % (Manual) 3.0 L Nucleated RBC % Seg Neutrophils # Seg Neutrophils # Man Lymphocytes # (Manual) 0.2 L Eosinophils # (Manual) INR D-Dimer ABG pH POC ABG pCO2 POC ABG pO2 ABG pO2 ABG HCO3 ABG O2 Saturation ABG Base Excess ABG Hemoglobin ABG Oxyhemoglobin ABG Sodium ABG Potassium ABG Chloride ABG Glucose Oxyhemoglobin Carboxyhemoglobin Sodium Potassium Chloride Carbon Dioxide BUN Creatinine Glucose POC Glucose 159 H Hemoglobin A1c Lactic Acid Calcium Phosphorus Magnesium Ferritin 798.0 H Total Bilirubin AST ALT Lactate Dehydrogenase C-Reactive Protein Albumin Triglycerides Arterial Blood Glucose Arterial Blood Ionized Calcium Urine Creatinine Coronavirus (PCR) Crossmatch 01/28/21 01/28/21 01/28/21 06:00 06:00 08:12 WBC RBC Hgb Hct MCV MCH MCHC RDW Plt Count Lymph % (Auto) Lymph # (Auto) Seg Neutrophils % Seg Neuts % (Manual) Lymphocytes % (Manual) Nucleated RBC % Seg Neutrophils # Seg Neutrophils # Man Lymphocytes # (Manual) Eosinophils # (Manual) INR D-Dimer ABG pH POC ABG pCO2 POC ABG pO2 ABG pO2 ABG HCO3 ABG O2 Saturation ABG Base Excess ABG Hemoglobin ABG Oxyhemoglobin ABG Sodium ABG Potassium ABG Chloride ABG Glucose Oxyhemoglobin Carboxyhemoglobin Sodium Potassium Chloride 111.9 H Carbon Dioxide BUN 59 H Creatinine 2.2 H Glucose 189 H POC Glucose 181 H Hemoglobin A1c Lactic Acid Calcium 8.1 L Phosphorus Magnesium 3.20 H Ferritin Total Bilirubin AST ALT Lactate Dehydrogenase C-Reactive Protein Albumin Triglycerides Arterial Blood Glucose Arterial Blood Ionized Calcium Urine Creatinine Coronavirus (PCR) Crossmatch 01/28/21 01/28/21 01/28/21 12:03 16:43 23:51 WBC RBC Hgb Hct MCV MCH MCHC RDW Plt Count Lymph % (Auto) Lymph # (Auto) Seg Neutrophils % Seg Neuts % (Manual) Lymphocytes % (Manual) Nucleated RBC % Seg Neutrophils # Seg Neutrophils # Man Lymphocytes # (Manual) Eosinophils # (Manual) INR D-Dimer ABG pH POC ABG pCO2 POC ABG pO2 ABG pO2 ABG HCO3 ABG O2 Saturation ABG Base Excess ABG Hemoglobin ABG Oxyhemoglobin ABG Sodium ABG Potassium ABG Chloride ABG Glucose Oxyhemoglobin Carboxyhemoglobin Sodium Potassium Chloride Carbon Dioxide BUN Creatinine Glucose POC Glucose 164 H 198 H 196 H Hemoglobin A1c Lactic Acid Calcium Phosphorus Magnesium Ferritin Total Bilirubin AST ALT Lactate Dehydrogenase C-Reactive Protein Albumin Triglycerides Arterial Blood Glucose Arterial Blood Ionized Calcium Urine Creatinine Coronavirus (PCR) Crossmatch 01/29/21 01/29/21 01/29/21 05:00 05:23 06:00 WBC RBC Hgb Hct MCV MCH MCHC RDW Plt Count Lymph % (Auto) Lymph # (Auto) Seg Neutrophils % Seg Neuts % (Manual) Lymphocytes % (Manual) Nucleated RBC % Seg Neutrophils # Seg Neutrophils # Man Lymphocytes # (Manual) Eosinophils # (Manual) INR D-Dimer ABG pH 7.119 L POC ABG pCO2 87.1 H POC ABG pO2 ABG pO2 ABG HCO3 ABG O2 Saturation ABG Base Excess ABG Hemoglobin ABG Oxyhemoglobin ABG Sodium 152.5 H ABG Potassium 5.7 H ABG Chloride 120.0 H ABG Glucose 217 H Oxyhemoglobin Carboxyhemoglobin Sodium 151 H Potassium 5.9 H D Chloride 117.8 H Carbon Dioxide BUN 54 H Creatinine 2.2 H Glucose 208 H POC Glucose 180 H Hemoglobin A1c Lactic Acid Calcium 7.9 L Phosphorus Magnesium Ferritin Total Bilirubin AST ALT Lactate Dehydrogenase C-Reactive Protein Albumin Triglycerides Arterial Blood Glucose 217 H Arterial Blood Ionized Calcium Urine Creatinine Coronavirus (PCR) Crossmatch 01/29/21 01/29/21 01/29/21 12:29 17:28 18:05 WBC RBC Hgb Hct MCV MCH MCHC RDW Plt Count Lymph % (Auto) Lymph # (Auto) Seg Neutrophils % Seg Neuts % (Manual) Lymphocytes % (Manual) Nucleated RBC % Seg Neutrophils # Seg Neutrophils # Man Lymphocytes # (Manual) Eosinophils # (Manual) INR D-Dimer ABG pH POC ABG pCO2 POC ABG pO2 ABG pO2 ABG HCO3 ABG O2 Saturation ABG Base Excess ABG Hemoglobin ABG Oxyhemoglobin ABG Sodium ABG Potassium ABG Chloride ABG Glucose Oxyhemoglobin Carboxyhemoglobin Sodium 151 H Potassium 5.5 H Chloride 118.2 H Carbon Dioxide BUN 52 H Creatinine 2.2 H Glucose 224 H POC Glucose 181 H 203 H Hemoglobin A1c Lactic Acid Calcium 8.0 L Phosphorus Magnesium Ferritin Total Bilirubin AST ALT Lactate Dehydrogenase C-Reactive Protein Albumin Triglycerides Arterial Blood Glucose Arterial Blood Ionized Calcium Urine Creatinine Coronavirus (PCR) Crossmatch 01/29/21 01/29/21 01/29/21 18:13 23:34 Unknown WBC RBC Hgb Hct MCV 101 H MCH MCHC RDW 15.7 H Plt Count Lymph % (Auto) Lymph # (Auto) Seg Neutrophils % Seg Neuts % (Manual) 95.0 H Lymphocytes % (Manual) 3.0 L Nucleated RBC % Seg Neutrophils # Seg Neutrophils # Man 8.0 H Lymphocytes # (Manual) 0.3 L Eosinophils # (Manual) INR D-Dimer ABG pH 7.223 L POC ABG pCO2 64.8 H POC ABG pO2 63.6 L ABG pO2 ABG HCO3 ABG O2 Saturation ABG Base Excess ABG Hemoglobin ABG Oxyhemoglobin 89.4 L ABG Sodium 152.9 H ABG Potassium 5.3 H ABG Chloride 121.0 H ABG Glucose 227 H Oxyhemoglobin Carboxyhemoglobin Sodium Potassium Chloride Carbon Dioxide BUN Creatinine Glucose POC Glucose 198 H Hemoglobin A1c Lactic Acid Calcium Phosphorus Magnesium Ferritin Total Bilirubin AST ALT Lactate Dehydrogenase C-Reactive Protein Albumin Triglycerides Arterial Blood Glucose 227 H Arterial Blood Ionized Calcium Urine Creatinine Coronavirus (PCR) Crossmatch 01/30/21 01/30/21 01/30/21 04:00 04:00 04:00 WBC RBC Hgb Hct MCV MCH MCHC RDW Plt Count Lymph % (Auto) Lymph # (Auto) Seg Neutrophils % Seg Neuts % (Manual) Lymphocytes % (Manual) Nucleated RBC % Seg Neutrophils # Seg Neutrophils # Man Lymphocytes # (Manual) Eosinophils # (Manual) INR D-Dimer > 78251 H ABG pH POC ABG pCO2 POC ABG pO2 ABG pO2 ABG HCO3 ABG O2 Saturation ABG Base Excess ABG Hemoglobin ABG Oxyhemoglobin ABG Sodium ABG Potassium ABG Chloride ABG Glucose Oxyhemoglobin Carboxyhemoglobin Sodium Potassium Chloride Carbon Dioxide BUN Creatinine Glucose 234 H POC Glucose Hemoglobin A1c Lactic Acid Calcium Phosphorus Magnesium Ferritin 763.9 H Total Bilirubin AST ALT Lactate Dehydrogenase 424 H C-Reactive Protein 23.90 H Albumin Triglycerides Arterial Blood Glucose Arterial Blood Ionized Calcium Urine Creatinine Coronavirus (PCR) Crossmatch 01/30/21 01/30/21 01/30/21 04:24 05:00 05:16 WBC RBC 3.57 L Hgb 11.3 L Hct 35.4 L MCV 99 H MCH MCHC RDW 15.6 H Plt Count Lymph % (Auto) Lymph # (Auto) Seg Neutrophils % Seg Neuts % (Manual) 97.0 H Lymphocytes % (Manual) 1.0 L Nucleated RBC % Seg Neutrophils # Seg Neutrophils # Man 8.6 H Lymphocytes # (Manual) 0.1 L Eosinophils # (Manual) INR D-Dimer ABG pH 7.235 L POC ABG pCO2 69.7 H POC ABG pO2 61.0 L ABG pO2 ABG HCO3 ABG O2 Saturation ABG Base Excess ABG Hemoglobin ABG Oxyhemoglobin 89 L ABG Sodium 154.2 H ABG Potassium 5.4 H ABG Chloride 121.0 H ABG Glucose 247 H Oxyhemoglobin Carboxyhemoglobin Sodium Potassium Chloride Carbon Dioxide BUN Creatinine Glucose POC Glucose 238 H Hemoglobin A1c Lactic Acid Calcium Phosphorus Magnesium Ferritin Total Bilirubin AST ALT Lactate Dehydrogenase C-Reactive Protein Albumin Triglycerides Arterial Blood Glucose 247 H Arterial Blood Ionized Calcium Urine Creatinine Coronavirus (PCR) Crossmatch 01/30/21 01/30/21 01/30/21 06:00 11:28 12:00 WBC RBC Hgb Hct MCV MCH MCHC RDW Plt Count Lymph % (Auto) Lymph # (Auto) Seg Neutrophils % Seg Neuts % (Manual) Lymphocytes % (Manual) Nucleated RBC % Seg Neutrophils # Seg Neutrophils # Man Lymphocytes # (Manual) Eosinophils # (Manual) INR D-Dimer ABG pH POC ABG pCO2 POC ABG pO2 ABG pO2 ABG HCO3 ABG O2 Saturation ABG Base Excess ABG Hemoglobin ABG Oxyhemoglobin ABG Sodium ABG Potassium ABG Chloride ABG Glucose Oxyhemoglobin Carboxyhemoglobin Sodium 152 H Potassium 5.3 H Chloride 120.5 H Carbon Dioxide BUN 50 H Creatinine 2.3 H Glucose 239 H POC Glucose 153 H Hemoglobin A1c Lactic Acid Calcium 8.2 L Phosphorus Magnesium 2.60 H Ferritin Total Bilirubin AST ALT Lactate Dehydrogenase C-Reactive Protein Albumin Triglycerides 293 H Arterial Blood Glucose Arterial Blood Ionized Calcium Urine Creatinine 53.0 H Coronavirus (PCR) Crossmatch 01/30/21 01/30/21 01/31/21 18:49 23:06 04:00 WBC RBC Hgb Hct MCV MCH MCHC RDW Plt Count Lymph % (Auto) Lymph # (Auto) Seg Neutrophils % Seg Neuts % (Manual) Lymphocytes % (Manual) Nucleated RBC % Seg Neutrophils # Seg Neutrophils # Man Lymphocytes # (Manual) Eosinophils # (Manual) INR D-Dimer ABG pH POC ABG pCO2 POC ABG pO2 ABG pO2 ABG HCO3 ABG O2 Saturation ABG Base Excess ABG Hemoglobin ABG Oxyhemoglobin ABG Sodium ABG Potassium ABG Chloride ABG Glucose Oxyhemoglobin Carboxyhemoglobin Sodium 156 H Potassium 5.9 H Chloride 122.6 H Carbon Dioxide BUN 61 H Creatinine 3.2 H Glucose 205 H POC Glucose 220 H 192 H Hemoglobin A1c Lactic Acid Calcium 8.0 L Phosphorus Magnesium Ferritin Total Bilirubin AST ALT Lactate Dehydrogenase C-Reactive Protein Albumin Triglycerides Arterial Blood Glucose Arterial Blood Ionized Calcium Urine Creatinine Coronavirus (PCR) Crossmatch 04/01/1801/31/21 01/31/21 04:40 05:17 11:33 WBC RBC Hgb Hct MCV MCH MCHC RDW Plt Count Lymph % (Auto) Lymph # (Auto) Seg Neutrophils % Seg Neuts % (Manual) Lymphocytes % (Manual) Nucleated RBC % Seg Neutrophils # Seg Neutrophils # Man Lymphocytes # (Manual) Eosinophils # (Manual) INR D-Dimer ABG pH 7.161 L* POC ABG pCO2 POC ABG pO2 ABG pO2 142.2 H ABG HCO3 28.3 H ABG O2 Saturation ABG Base Excess -3.2 L ABG Hemoglobin ABG Oxyhemoglobin ABG Sodium ABG Potassium ABG Chloride ABG Glucose Oxyhemoglobin Carboxyhemoglobin Sodium Potassium Chloride Carbon Dioxide BUN Creatinine Glucose POC Glucose 200 H 167 H Hemoglobin A1c Lactic Acid Calcium Phosphorus Magnesium Ferritin Total Bilirubin AST ALT Lactate Dehydrogenase C-Reactive Protein Albumin Triglycerides Arterial Blood Glucose Arterial Blood Ionized Calcium Urine Creatinine Coronavirus (PCR) Crossmatch 01/31/21 01/31/21 01/31/21 14:00 17:10 23:24 WBC RBC Hgb Hct MCV MCH MCHC RDW Plt Count Lymph % (Auto) Lymph # (Auto) Seg Neutrophils % Seg Neuts % (Manual) Lymphocytes % (Manual) Nucleated RBC % Seg Neutrophils # Seg Neutrophils # Man Lymphocytes # (Manual) Eosinophils # (Manual) INR D-Dimer ABG pH 7.205 L POC ABG pCO2 POC ABG pO2 ABG pO2 90.9 H ABG HCO3 26.5 H ABG O2 Saturation ABG Base Excess -2.7 L ABG Hemoglobin 12.3 L ABG Oxyhemoglobin ABG Sodium ABG Potassium ABG Chloride ABG Glucose Oxyhemoglobin 93.9 L Carboxyhemoglobin Sodium Potassium Chloride Carbon Dioxide BUN Creatinine Glucose POC Glucose 190 H 203 H Hemoglobin A1c Lactic Acid Calcium Phosphorus Magnesium Ferritin Total Bilirubin AST ALT Lactate Dehydrogenase C-Reactive Protein Albumin Triglycerides Arterial Blood Glucose Arterial Blood Ionized Calcium Urine Creatinine Coronavirus (PCR) Crossmatch 02/01/21 02/01/21 02/01/21 05:15 06:22 10:20 WBC RBC Hgb Hct MCV MCH MCHC RDW Plt Count Lymph % (Auto) Lymph # (Auto) Seg Neutrophils % Seg Neuts % (Manual) Lymphocytes % (Manual) Nucleated RBC % Seg Neutrophils # Seg Neutrophils # Man Lymphocytes # (Manual) Eosinophils # (Manual) INR D-Dimer ABG pH 6.920 L* 7.116 L* POC ABG pCO2 POC ABG pO2 ABG pO2 102.9 H 113.1 H ABG HCO3 28.2 H ABG O2 Saturation 92.9 L ABG Base Excess -6.9 L -5.8 L ABG Hemoglobin 11.6 L 9.5 L ABG Oxyhemoglobin ABG Sodium ABG Potassium ABG Chloride ABG Glucose Oxyhemoglobin 90.5 L 94.6 L Carboxyhemoglobin Sodium Potassium Chloride Carbon Dioxide BUN Creatinine Glucose POC Glucose 221 H Hemoglobin A1c Lactic Acid Calcium Phosphorus Magnesium Ferritin Total Bilirubin AST ALT Lactate Dehydrogenase C-Reactive Protein Albumin Triglycerides Arterial Blood Glucose Arterial Blood Ionized Calcium Urine Creatinine Coronavirus (PCR) Crossmatch 02/01/21 02/01/21 02/01/21 11:12 12:35 16:00 WBC RBC Hgb Hct MCV MCH MCHC RDW Plt Count Lymph % (Auto) Lymph # (Auto) Seg Neutrophils % Seg Neuts % (Manual) Lymphocytes % (Manual) Nucleated RBC % Seg Neutrophils # Seg Neutrophils # Man Lymphocytes # (Manual) Eosinophils # (Manual) INR D-Dimer ABG pH 7.155 L* POC ABG pCO2 POC ABG pO2 ABG pO2 94.6 H ABG HCO3 ABG O2 Saturation ABG Base Excess -6.5 L ABG Hemoglobin 13.1 L ABG Oxyhemoglobin ABG Sodium ABG Potassium ABG Chloride ABG Glucose Oxyhemoglobin 93.7 L Carboxyhemoglobin Sodium 155 H Potassium 5.1 H Chloride 120.5 H Carbon Dioxide BUN 90 H Creatinine 6.1 H D Glucose 238 H POC Glucose 207 H Hemoglobin A1c Lactic Acid Calcium 7.4 L Phosphorus Magnesium Ferritin Total Bilirubin AST ALT Lactate Dehydrogenase C-Reactive Protein Albumin Triglycerides Arterial Blood Glucose Arterial Blood Ionized Calcium Urine Creatinine Coronavirus (PCR) Crossmatch 02/01/21 02/01/21 02/02/21 17:10 23:47 04:04 WBC RBC 3.02 L Hgb 9.8 L Hct 30.7 L MCV 102 H MCH MCHC RDW 15.6 H Plt Count Lymph % (Auto) 4.2 L Lymph # (Auto) 0.3 L Seg Neutrophils % Seg Neuts % (Manual) Lymphocytes % (Manual) Nucleated RBC % Seg Neutrophils # Seg Neutrophils # Man Lymphocytes # (Manual) Eosinophils # (Manual) INR D-Dimer ABG pH POC ABG pCO2 POC ABG pO2 ABG pO2 ABG HCO3 ABG O2 Saturation ABG Base Excess ABG Hemoglobin ABG Oxyhemoglobin ABG Sodium ABG Potassium ABG Chloride ABG Glucose Oxyhemoglobin Carboxyhemoglobin Sodium Potassium Chloride Carbon Dioxide BUN Creatinine Glucose POC Glucose 238 H 235 H Hemoglobin A1c Lactic Acid Calcium Phosphorus Magnesium Ferritin Total Bilirubin AST ALT Lactate Dehydrogenase C-Reactive Protein Albumin Triglycerides Arterial Blood Glucose Arterial Blood Ionized Calcium Urine Creatinine Coronavirus (PCR) Crossmatch 02/02/21 02/02/21 02/02/21 05:18 05:35 11:28 WBC RBC Hgb Hct MCV MCH MCHC RDW Plt Count Lymph % (Auto) Lymph # (Auto) Seg Neutrophils % Seg Neuts % (Manual) Lymphocytes % (Manual) Nucleated RBC % Seg Neutrophils # Seg Neutrophils # Man Lymphocytes # (Manual) Eosinophils # (Manual) INR D-Dimer ABG pH 7.195 L* POC ABG pCO2 POC ABG pO2 ABG pO2 72.5 L ABG HCO3 ABG O2 Saturation 91.2 L ABG Base Excess -5.3 L ABG Hemoglobin 6.0 L ABG Oxyhemoglobin ABG Sodium ABG Potassium ABG Chloride ABG Glucose Oxyhemoglobin 89.1 L Carboxyhemoglobin Sodium Potassium Chloride 110.4 H Carbon Dioxide BUN 92 H Creatinine Glucose POC Glucose 239 H Hemoglobin A1c Lactic Acid Calcium Phosphorus Magnesium Ferritin Total Bilirubin AST ALT Lactate Dehydrogenase C-Reactive Protein Albumin Triglycerides Arterial Blood Glucose Arterial Blood Ionized Calcium Urine Creatinine Coronavirus (PCR) Crossmatch 02/02/21 02/02/21 02/02/21 11:53 16:00 18:04 WBC RBC Hgb Hct MCV MCH MCHC RDW Plt Count Lymph % (Auto) Lymph # (Auto) Seg Neutrophils % Seg Neuts % (Manual) Lymphocytes % (Manual) Nucleated RBC % Seg Neutrophils # Seg Neutrophils # Man Lymphocytes # (Manual) Eosinophils # (Manual) INR D-Dimer ABG pH POC ABG pCO2 POC ABG pO2 ABG pO2 ABG HCO3 ABG O2 Saturation ABG Base Excess ABG Hemoglobin ABG Oxyhemoglobin ABG Sodium ABG Potassium ABG Chloride ABG Glucose Oxyhemoglobin Carboxyhemoglobin Sodium Potassium Chloride Carbon Dioxide BUN Creatinine Glucose POC Glucose 248 H 199 H Hemoglobin A1c 6.3 H Lactic Acid Calcium Phosphorus Magnesium Ferritin Total Bilirubin AST ALT Lactate Dehydrogenase C-Reactive Protein Albumin Triglycerides Arterial Blood Glucose Arterial Blood Ionized Calcium Urine Creatinine Coronavirus (PCR) Crossmatch 02/02/21 02/03/21 02/03/21 23:31 03:12 04:10 WBC RBC 3.06 L Hgb 9.7 L Hct 30.4 L MCV 99 H MCH MCHC RDW 15.3 H Plt Count Lymph % (Auto) 6.1 L Lymph # (Auto) 0.5 L Seg Neutrophils % 86.1 H Seg Neuts % (Manual) Lymphocytes % (Manual) Nucleated RBC % Seg Neutrophils # Seg Neutrophils # Man Lymphocytes # (Manual) Eosinophils # (Manual) INR D-Dimer ABG pH 7.199 L POC ABG pCO2 48.3 H POC ABG pO2 68.3 L ABG pO2 ABG HCO3 ABG O2 Saturation ABG Base Excess ABG Hemoglobin 10.2 L ABG Oxyhemoglobin 89.2 L ABG Sodium 155.0 H ABG Potassium 4.6 H ABG Chloride 121.0 H ABG Glucose 166 H Oxyhemoglobin Carboxyhemoglobin 0.3 L Sodium Potassium Chloride Carbon Dioxide BUN Creatinine Glucose POC Glucose 200 H Hemoglobin A1c Lactic Acid Calcium Phosphorus Magnesium Ferritin Total Bilirubin AST ALT Lactate Dehydrogenase C-Reactive Protein Albumin Triglycerides Arterial Blood Glucose 166 H Arterial Blood Ionized Calcium 4.1 L Urine Creatinine Coronavirus (PCR) Crossmatch 02/03/21 02/03/21 02/03/21 04:10 05:34 11:51 WBC RBC Hgb Hct MCV MCH MCHC RDW Plt Count Lymph % (Auto) Lymph # (Auto) Seg Neutrophils % Seg Neuts % (Manual) Lymphocytes % (Manual) Nucleated RBC % Seg Neutrophils # Seg Neutrophils # Man Lymphocytes # (Manual) Eosinophils # (Manual) INR D-Dimer ABG pH POC ABG pCO2 POC ABG pO2 ABG pO2 ABG HCO3 ABG O2 Saturation ABG Base Excess ABG Hemoglobin ABG Oxyhemoglobin ABG Sodium ABG Potassium ABG Chloride ABG Glucose Oxyhemoglobin Carboxyhemoglobin Sodium 154 H D Potassium Chloride 116.7 H Carbon Dioxide 20 L BUN 130 H Creatinine 9.2 H D Glucose 160 H POC Glucose 130 H 154 H Hemoglobin A1c Lactic Acid Calcium 6.7 L Phosphorus 8.60 H Magnesium Ferritin Total Bilirubin AST ALT Lactate Dehydrogenase C-Reactive Protein Albumin Triglycerides Arterial Blood Glucose Arterial Blood Ionized Calcium Urine Creatinine Coronavirus (PCR) Crossmatch 02/03/21 02/03/21 02/04/21 16:49 23:22 03:48 WBC RBC Hgb Hct MCV MCH MCHC RDW Plt Count Lymph % (Auto) Lymph # (Auto) Seg Neutrophils % Seg Neuts % (Manual) Lymphocytes % (Manual) Nucleated RBC % Seg Neutrophils # Seg Neutrophils # Man Lymphocytes # (Manual) Eosinophils # (Manual) INR D-Dimer ABG pH 7.201 L POC ABG pCO2 54.5 H POC ABG pO2 74.0 L ABG pO2 ABG HCO3 ABG O2 Saturation ABG Base Excess ABG Hemoglobin 9.7 L ABG Oxyhemoglobin 91.1 L ABG Sodium 146.2 H ABG Potassium ABG Chloride 114.0 H ABG Glucose 155 H Oxyhemoglobin Carboxyhemoglobin Sodium Potassium Chloride Carbon Dioxide BUN Creatinine Glucose POC Glucose 164 H 152 H Hemoglobin A1c Lactic Acid Calcium Phosphorus Magnesium Ferritin Total Bilirubin AST ALT Lactate Dehydrogenase C-Reactive Protein Albumin Triglycerides Arterial Blood Glucose 155 H Arterial Blood Ionized Calcium 3.9 L Urine Creatinine Coronavirus (PCR) Crossmatch 02/04/21 02/04/21 02/04/21 04:45 04:45 04:45 WBC RBC 2.75 L Hgb 9.1 L Hct 26.9 L MCV 98 H MCH 33 H MCHC RDW Plt Count Lymph % (Auto) 6.8 L Lymph # (Auto) 0.5 L Seg Neutrophils % 87.2 H Seg Neuts % (Manual) Lymphocytes % (Manual) Nucleated RBC % Seg Neutrophils # Seg Neutrophils # Man Lymphocytes # (Manual) Eosinophils # (Manual) INR D-Dimer ABG pH POC ABG pCO2 POC ABG pO2 ABG pO2 ABG HCO3 ABG O2 Saturation ABG Base Excess ABG Hemoglobin ABG Oxyhemoglobin ABG Sodium ABG Potassium ABG Chloride ABG Glucose Oxyhemoglobin Carboxyhemoglobin Sodium 149 H Potassium Chloride 111.5 H Carbon Dioxide BUN 99 H Creatinine 8.5 H Glucose 139 H POC Glucose Hemoglobin A1c Lactic Acid Calcium 6.8 L Phosphorus 8.40 H Magnesium Ferritin Total Bilirubin AST ALT Lactate Dehydrogenase C-Reactive Protein Albumin Triglycerides Arterial Blood Glucose Arterial Blood Ionized Calcium Urine Creatinine Coronavirus (PCR) Crossmatch 02/04/21 02/04/21 02/04/21 06:05 11:44 18:00 WBC RBC Hgb Hct MCV MCH MCHC RDW Plt Count Lymph % (Auto) Lymph # (Auto) Seg Neutrophils % Seg Neuts % (Manual) Lymphocytes % (Manual) Nucleated RBC % Seg Neutrophils # Seg Neutrophils # Man Lymphocytes # (Manual) Eosinophils # (Manual) INR D-Dimer ABG pH POC ABG pCO2 POC ABG pO2 ABG pO2 ABG HCO3 ABG O2 Saturation ABG Base Excess ABG Hemoglobin ABG Oxyhemoglobin ABG Sodium ABG Potassium ABG Chloride ABG Glucose Oxyhemoglobin Carboxyhemoglobin Sodium Potassium Chloride Carbon Dioxide BUN Creatinine Glucose POC Glucose 138 H 129 H 163 H Hemoglobin A1c Lactic Acid Calcium Phosphorus Magnesium Ferritin Total Bilirubin AST ALT Lactate Dehydrogenase C-Reactive Protein Albumin Triglycerides Arterial Blood Glucose Arterial Blood Ionized Calcium Urine Creatinine Coronavirus (PCR) Crossmatch 02/04/21 02/05/21 02/05/21 23:48 01:50 01:50 WBC RBC 2.43 L Hgb 8.3 L Hct 23.6 L MCV 97 H MCH 34 H MCHC 35 H RDW Plt Count 137 L Lymph % (Auto) 8.4 L Lymph # (Auto) 0.6 L Seg Neutrophils % 86.1 H Seg Neuts % (Manual) Lymphocytes % (Manual) Nucleated RBC % Seg Neutrophils # Seg Neutrophils # Man Lymphocytes # (Manual) Eosinophils # (Manual) INR D-Dimer ABG pH POC ABG pCO2 POC ABG pO2 ABG pO2 ABG HCO3 ABG O2 Saturation ABG Base Excess ABG Hemoglobin ABG Oxyhemoglobin ABG Sodium ABG Potassium ABG Chloride ABG Glucose Oxyhemoglobin Carboxyhemoglobin Sodium Potassium Chloride Carbon Dioxide BUN Creatinine Glucose POC Glucose 157 H Hemoglobin A1c Lactic Acid Calcium Phosphorus 5.60 H D Magnesium Ferritin Total Bilirubin AST ALT Lactate Dehydrogenase C-Reactive Protein Albumin Triglycerides Arterial Blood Glucose Arterial Blood Ionized Calcium Urine Creatinine Coronavirus (PCR) Crossmatch 02/05/21 02/05/21 02/05/21 03:44 05:27 09:15 WBC RBC Hgb Hct MCV MCH MCHC RDW Plt Count Lymph % (Auto) Lymph # (Auto) Seg Neutrophils % Seg Neuts % (Manual) Lymphocytes % (Manual) Nucleated RBC % Seg Neutrophils # Seg Neutrophils # Man Lymphocytes # (Manual) Eosinophils # (Manual) INR D-Dimer ABG pH 7.202 L POC ABG pCO2 63.7 H POC ABG pO2 69.0 L ABG pO2 ABG HCO3 ABG O2 Saturation ABG Base Excess ABG Hemoglobin 9.4 L ABG Oxyhemoglobin ABG Sodium ABG Potassium ABG Chloride 108.0 H ABG Glucose 186 H Oxyhemoglobin Carboxyhemoglobin Sodium Potassium Chloride Carbon Dioxide BUN 78 H Creatinine 8.0 H Glucose 163 H POC Glucose 157 H Hemoglobin A1c Lactic Acid Calcium 6.3 L Phosphorus Magnesium Ferritin Total Bilirubin AST ALT Lactate Dehydrogenase C-Reactive Protein Albumin Triglycerides Arterial Blood Glucose 186 H Arterial Blood Ionized Calcium 3.9 L Urine Creatinine Coronavirus (PCR) Crossmatch 02/05/21 02/05/21 02/05/21 11:47 17:39 23:40 WBC RBC Hgb Hct MCV MCH MCHC RDW Plt Count Lymph % (Auto) Lymph # (Auto) Seg Neutrophils % Seg Neuts % (Manual) Lymphocytes % (Manual) Nucleated RBC % Seg Neutrophils # Seg Neutrophils # Man Lymphocytes # (Manual) Eosinophils # (Manual) INR D-Dimer ABG pH 7.273 L POC ABG pCO2 62.1 H POC ABG pO2 72.0 L ABG pO2 ABG HCO3 ABG O2 Saturation ABG Base Excess ABG Hemoglobin 9.1 L ABG Oxyhemoglobin 91.3 L ABG Sodium ABG Potassium 3.1 L ABG Chloride ABG Glucose 125 H Oxyhemoglobin Carboxyhemoglobin Sodium Potassium Chloride Carbon Dioxide BUN Creatinine Glucose POC Glucose 126 H 126 H Hemoglobin A1c Lactic Acid Calcium Phosphorus Magnesium Ferritin Total Bilirubin AST ALT Lactate Dehydrogenase C-Reactive Protein Albumin Triglycerides Arterial Blood Glucose 125 H Arterial Blood Ionized Calcium 4.0 L Urine Creatinine Coronavirus (PCR) Crossmatch 02/06/21 02/06/21 02/06/21 04:30 04:57 09:45 WBC RBC Hgb Hct MCV MCH MCHC RDW Plt Count Lymph % (Auto) Lymph # (Auto) Seg Neutrophils % Seg Neuts % (Manual) Lymphocytes % (Manual) Nucleated RBC % Seg Neutrophils # Seg Neutrophils # Man Lymphocytes # (Manual) Eosinophils # (Manual) INR D-Dimer ABG pH 7.159 L 7.138 L* POC ABG pCO2 76.3 H POC ABG pO2 66.9 L ABG pO2 ABG HCO3 ABG O2 Saturation 93.4 L ABG Base Excess -6.0 L ABG Hemoglobin 11.2 L 11.7 L ABG Oxyhemoglobin 88.2 L ABG Sodium ABG Potassium ABG Chloride ABG Glucose 134 H Oxyhemoglobin 91.2 L Carboxyhemoglobin Sodium Potassium Chloride Carbon Dioxide BUN Creatinine Glucose POC Glucose 124 H Hemoglobin A1c Lactic Acid Calcium Phosphorus Magnesium Ferritin Total Bilirubin AST ALT Lactate Dehydrogenase C-Reactive Protein Albumin Triglycerides Arterial Blood Glucose 134 H Arterial Blood Ionized Calcium 3.9 L Urine Creatinine Coronavirus (PCR) Crossmatch 02/06/21 02/06/21 02/06/21 11:11 17:00 17:00 WBC RBC Hgb Hct MCV MCH MCHC RDW Plt Count Lymph % (Auto) Lymph # (Auto) Seg Neutrophils % Seg Neuts % (Manual) Lymphocytes % (Manual) Nucleated RBC % Seg Neutrophils # Seg Neutrophils # Man Lymphocytes # (Manual) Eosinophils # (Manual) INR D-Dimer ABG pH 7.158 L* POC ABG pCO2 POC ABG pO2 ABG pO2 109.8 H ABG HCO3 28.7 H ABG O2 Saturation ABG Base Excess -2.5 L ABG Hemoglobin ABG Oxyhemoglobin ABG Sodium ABG Potassium ABG Chloride ABG Glucose Oxyhemoglobin 94.5 L Carboxyhemoglobin Sodium Potassium Chloride Carbon Dioxide BUN Creatinine Glucose POC Glucose 120 H Hemoglobin A1c Lactic Acid Calcium Phosphorus Magnesium Ferritin Total Bilirubin AST ALT Lactate Dehydrogenase C-Reactive Protein Albumin Triglycerides 503 H Arterial Blood Glucose Arterial Blood Ionized Calcium Urine Creatinine Coronavirus (PCR) Crossmatch 02/06/21 02/06/21 02/06/21 17:28 20:16 Unknown WBC 13.5 H RBC 2.98 L Hgb 9.3 L Hct 28.6 L MCV 96 H MCH MCHC RDW Plt Count Lymph % (Auto) Lymph # (Auto) Seg Neutrophils % Seg Neuts % (Manual) 87.0 H Lymphocytes % (Manual) 7.0 L Nucleated RBC % Seg Neutrophils # Seg Neutrophils # Man 11.7 H Lymphocytes # (Manual) 0.9 L Eosinophils # (Manual) 0.5 H INR D-Dimer ABG pH POC ABG pCO2 POC ABG pO2 ABG pO2 ABG HCO3 ABG O2 Saturation ABG Base Excess ABG Hemoglobin ABG Oxyhemoglobin ABG Sodium ABG Potassium ABG Chloride ABG Glucose Oxyhemoglobin Carboxyhemoglobin Sodium Potassium Chloride Carbon Dioxide BUN Creatinine Glucose POC Glucose 147 H 164 H Hemoglobin A1c Lactic Acid Calcium Phosphorus Magnesium Ferritin Total Bilirubin AST ALT Lactate Dehydrogenase C-Reactive Protein Albumin Triglycerides Arterial Blood Glucose Arterial Blood Ionized Calcium Urine Creatinine Coronavirus (PCR) Crossmatch 02/06/21 02/07/21 02/07/21 Unknown 01:21 04:00 WBC 12.0 H RBC 2.61 L Hgb 8.2 L Hct 24.5 L MCV MCH MCHC RDW Plt Count Lymph % (Auto) 8.9 L Lymph # (Auto) 1.1 L Seg Neutrophils % 86.3 H Seg Neuts % (Manual) Lymphocytes % (Manual) Nucleated RBC % Seg Neutrophils # 10.3 H Seg Neutrophils # Man Lymphocytes # (Manual) Eosinophils # (Manual) INR D-Dimer ABG pH POC ABG pCO2 POC ABG pO2 ABG pO2 ABG HCO3 ABG O2 Saturation ABG Base Excess ABG Hemoglobin ABG Oxyhemoglobin ABG Sodium ABG Potassium ABG Chloride ABG Glucose Oxyhemoglobin Carboxyhemoglobin Sodium Potassium 3.5 L Chloride Carbon Dioxide BUN 58 H Creatinine 6.6 H Glucose 107 H POC Glucose 173 H Hemoglobin A1c Lactic Acid Calcium 6.7 L Phosphorus 8.00 H D Magnesium Ferritin Total Bilirubin AST ALT Lactate Dehydrogenase C-Reactive Protein Albumin Triglycerides Arterial Blood Glucose Arterial Blood Ionized Calcium Urine Creatinine Coronavirus (PCR) Crossmatch 02/07/21 02/07/21 02/07/21 04:00 04:45 11:49 WBC RBC Hgb Hct MCV MCH MCHC RDW Plt Count Lymph % (Auto) Lymph # (Auto) Seg Neutrophils % Seg Neuts % (Manual) Lymphocytes % (Manual) Nucleated RBC % Seg Neutrophils # Seg Neutrophils # Man Lymphocytes # (Manual) Eosinophils # (Manual) INR D-Dimer ABG pH 7.287 L POC ABG pCO2 64.8 H POC ABG pO2 74.0 L ABG pO2 ABG HCO3 ABG O2 Saturation ABG Base Excess ABG Hemoglobin 9.1 L ABG Oxyhemoglobin 92.0 L ABG Sodium ABG Potassium 2.8 L ABG Chloride ABG Glucose 226 H Oxyhemoglobin Carboxyhemoglobin Sodium Potassium Chloride Carbon Dioxide BUN Creatinine Glucose POC Glucose 170 H Hemoglobin A1c Lactic Acid Calcium Phosphorus 5.50 H D Magnesium Ferritin Total Bilirubin AST ALT Lactate Dehydrogenase C-Reactive Protein Albumin Triglycerides Arterial Blood Glucose 226 H Arterial Blood Ionized Calcium 3.7 L Urine Creatinine Coronavirus (PCR) Crossmatch 02/07/21 02/07/21 02/07/21 13:48 17:45 23:02 WBC RBC Hgb Hct MCV MCH MCHC RDW Plt Count Lymph % (Auto) Lymph # (Auto) Seg Neutrophils % Seg Neuts % (Manual) Lymphocytes % (Manual) Nucleated RBC % Seg Neutrophils # Seg Neutrophils # Man Lymphocytes # (Manual) Eosinophils # (Manual) INR D-Dimer ABG pH POC ABG pCO2 POC ABG pO2 ABG pO2 ABG HCO3 ABG O2 Saturation ABG Base Excess ABG Hemoglobin ABG Oxyhemoglobin ABG Sodium ABG Potassium ABG Chloride ABG Glucose Oxyhemoglobin Carboxyhemoglobin Sodium 136 L Potassium 2.6 L* D Chloride 95.1 L Carbon Dioxide 33 H D BUN 30 H Creatinine 3.6 H Glucose 184 H POC Glucose 172 H 172 H Hemoglobin A1c Lactic Acid Calcium 6.9 L Phosphorus Magnesium Ferritin Total Bilirubin AST ALT Lactate Dehydrogenase C-Reactive Protein Albumin Triglycerides Arterial Blood Glucose Arterial Blood Ionized Calcium Urine Creatinine Coronavirus (PCR) Crossmatch 02/08/21 02/08/21 02/08/21 05:22 06:00 06:00 WBC RBC 2.21 L Hgb 7.2 L Hct 21.0 L MCV 95 H MCH MCHC RDW Plt Count Lymph % (Auto) Lymph # (Auto) Seg Neutrophils % Seg Neuts % (Manual) 87.0 H Lymphocytes % (Manual) 4.0 L Nucleated RBC % Seg Neutrophils # Seg Neutrophils # Man 8.5 H Lymphocytes # (Manual) 0.4 L Eosinophils # (Manual) INR D-Dimer ABG pH POC ABG pCO2 POC ABG pO2 ABG pO2 ABG HCO3 ABG O2 Saturation ABG Base Excess ABG Hemoglobin ABG Oxyhemoglobin ABG Sodium ABG Potassium ABG Chloride ABG Glucose Oxyhemoglobin Carboxyhemoglobin Sodium 136 L Potassium 2.4 L* Chloride 93.1 L Carbon Dioxide 36 H BUN 43 H Creatinine 5.4 H Glucose 167 H POC Glucose 162 H Hemoglobin A1c Lactic Acid Calcium 6.3 L Phosphorus Magnesium Ferritin Total Bilirubin AST ALT Lactate Dehydrogenase C-Reactive Protein Albumin Triglycerides Arterial Blood Glucose Arterial Blood Ionized Calcium Urine Creatinine Coronavirus (PCR) Crossmatch 02/08/21 02/08/21 02/08/21 11:44 17:53 18:56 WBC RBC Hgb Hct MCV MCH MCHC RDW Plt Count Lymph % (Auto) Lymph # (Auto) Seg Neutrophils % Seg Neuts % (Manual) Lymphocytes % (Manual) Nucleated RBC % Seg Neutrophils # Seg Neutrophils # Man Lymphocytes # (Manual) Eosinophils # (Manual) INR D-Dimer ABG pH POC ABG pCO2 POC ABG pO2 ABG pO2 ABG HCO3 ABG O2 Saturation ABG Base Excess ABG Hemoglobin ABG Oxyhemoglobin ABG Sodium ABG Potassium ABG Chloride ABG Glucose Oxyhemoglobin Carboxyhemoglobin Sodium Potassium 2.9 L* D Chloride Carbon Dioxide BUN Creatinine Glucose POC Glucose 164 H 154 H Hemoglobin A1c Lactic Acid Calcium Phosphorus Magnesium Ferritin Total Bilirubin AST ALT Lactate Dehydrogenase C-Reactive Protein Albumin Triglycerides Arterial Blood Glucose Arterial Blood Ionized Calcium Urine Creatinine Coronavirus (PCR) Crossmatch 02/08/21 02/08/21 02/09/21 23:24 23:58 03:21 WBC RBC Hgb Hct MCV MCH MCHC RDW Plt Count Lymph % (Auto) Lymph # (Auto) Seg Neutrophils % Seg Neuts % (Manual) Lymphocytes % (Manual) Nucleated RBC % Seg Neutrophils # Seg Neutrophils # Man Lymphocytes # (Manual) Eosinophils # (Manual) INR D-Dimer ABG pH 7.319 L POC ABG pCO2 63.3 H 68.3 H POC ABG pO2 71.2 L 76.5 L ABG pO2 ABG HCO3 ABG O2 Saturation ABG Base Excess ABG Hemoglobin 8.2 L 7.0 L ABG Oxyhemoglobin 91.8 L 92.2 L ABG Sodium 134.6 L 133.0 L ABG Potassium 2.3 L 3.1 L ABG Chloride 96.0 L 95.0 L ABG Glucose 184 H 154 H Oxyhemoglobin Carboxyhemoglobin Sodium Potassium Chloride Carbon Dioxide BUN Creatinine Glucose POC Glucose 152 H Hemoglobin A1c Lactic Acid Calcium Phosphorus Magnesium Ferritin Total Bilirubin AST ALT Lactate Dehydrogenase C-Reactive Protein Albumin Triglycerides Arterial Blood Glucose 184 H 154 H Arterial Blood Ionized Calcium 3.6 L 3.5 L Urine Creatinine Coronavirus (PCR) Crossmatch 02/09/21 02/09/21 02/09/21 05:10 05:10 06:04 WBC RBC 2.14 L Hgb 7.0 L Hct 20.5 L MCV 96 H MCH 33 H MCHC RDW Plt Count Lymph % (Auto) Lymph # (Auto) Seg Neutrophils % Seg Neuts % (Manual) 82.0 H Lymphocytes % (Manual) 9.0 L Nucleated RBC % 1.0 H Seg Neutrophils # Seg Neutrophils # Man 8.9 H Lymphocytes # (Manual) 1.0 L Eosinophils # (Manual) INR D-Dimer ABG pH POC ABG pCO2 POC ABG pO2 ABG pO2 ABG HCO3 ABG O2 Saturation ABG Base Excess ABG Hemoglobin ABG Oxyhemoglobin ABG Sodium ABG Potassium ABG Chloride ABG Glucose Oxyhemoglobin Carboxyhemoglobin Sodium 135 L Potassium 3.2 L Chloride 91.0 L Carbon Dioxide 32 H BUN 54 H Creatinine 6.6 H Glucose 163 H POC Glucose 149 H Hemoglobin A1c Lactic Acid Calcium 6.2 L Phosphorus Magnesium Ferritin Total Bilirubin AST ALT Lactate Dehydrogenase C-Reactive Protein Albumin Triglycerides Arterial Blood Glucose Arterial Blood Ionized Calcium Urine Creatinine Coronavirus (PCR) Crossmatch 02/09/21 02/09/21 02/09/21 12:02 13:32 13:40 WBC RBC Hgb Hct MCV MCH MCHC RDW Plt Count Lymph % (Auto) Lymph # (Auto) Seg Neutrophils % Seg Neuts % (Manual) Lymphocytes % (Manual) Nucleated RBC % Seg Neutrophils # Seg Neutrophils # Man Lymphocytes # (Manual) Eosinophils # (Manual) INR D-Dimer ABG pH POC ABG pCO2 POC ABG pO2 ABG pO2 ABG HCO3 ABG O2 Saturation ABG Base Excess ABG Hemoglobin ABG Oxyhemoglobin ABG Sodium ABG Potassium ABG Chloride ABG Glucose Oxyhemoglobin Carboxyhemoglobin Sodium Potassium Chloride Carbon Dioxide BUN Creatinine Glucose POC Glucose 147 H Hemoglobin A1c Lactic Acid Calcium Phosphorus Magnesium Ferritin Total Bilirubin AST ALT Lactate Dehydrogenase C-Reactive Protein Albumin Triglycerides 250 H Arterial Blood Glucose Arterial Blood Ionized Calcium Urine Creatinine Coronavirus (PCR) Crossmatch See Detail 02/09/21 02/09/21 02/10/21 18:06 23:42 04:00 WBC RBC Hgb Hct MCV MCH MCHC RDW Plt Count Lymph % (Auto) Lymph # (Auto) Seg Neutrophils % Seg Neuts % (Manual) Lymphocytes % (Manual) Nucleated RBC % Seg Neutrophils # Seg Neutrophils # Man Lymphocytes # (Manual) Eosinophils # (Manual) INR D-Dimer ABG pH POC ABG pCO2 65.8 H POC ABG pO2 68.0 L ABG pO2 ABG HCO3 ABG O2 Saturation ABG Base Excess ABG Hemoglobin 8.3 L ABG Oxyhemoglobin ABG Sodium 132.4 L ABG Potassium 2.9 L ABG Chloride 92.0 L ABG Glucose 174 H Oxyhemoglobin Carboxyhemoglobin Sodium Potassium Chloride Carbon Dioxide BUN Creatinine Glucose POC Glucose 152 H 147 H Hemoglobin A1c Lactic Acid Calcium Phosphorus Magnesium Ferritin Total Bilirubin AST ALT Lactate Dehydrogenase C-Reactive Protein Albumin Triglycerides Arterial Blood Glucose 174 H Arterial Blood Ionized Calcium 3.4 L Urine Creatinine Coronavirus (PCR) Crossmatch 02/10/21 02/10/21 02/10/21 05:32 11:29 14:08 WBC 12.5 H RBC 2.14 L Hgb 6.6 L Hct 20.2 L MCV MCH MCHC RDW Plt Count Lymph % (Auto) Lymph # (Auto) Seg Neutrophils % Seg Neuts % (Manual) Lymphocytes % (Manual) Nucleated RBC % Seg Neutrophils # Seg Neutrophils # Man Lymphocytes # (Manual) Eosinophils # (Manual) INR D-Dimer ABG pH POC ABG pCO2 POC ABG pO2 ABG pO2 ABG HCO3 ABG O2 Saturation ABG Base Excess ABG Hemoglobin ABG Oxyhemoglobin ABG Sodium ABG Potassium ABG Chloride ABG Glucose Oxyhemoglobin Carboxyhemoglobin Sodium Potassium Chloride Carbon Dioxide BUN Creatinine Glucose POC Glucose 167 H 147 H Hemoglobin A1c Lactic Acid Calcium Phosphorus Magnesium Ferritin Total Bilirubin AST ALT Lactate Dehydrogenase C-Reactive Protein Albumin Triglycerides Arterial Blood Glucose Arterial Blood Ionized Calcium Urine Creatinine Coronavirus (PCR) Crossmatch 02/10/21 02/10/21 02/10/21 14:08 18:11 22:32 WBC RBC Hgb 6.4 L Hct 19.1 L* MCV MCH MCHC RDW Plt Count Lymph % (Auto) Lymph # (Auto) Seg Neutrophils % Seg Neuts % (Manual) Lymphocytes % (Manual) Nucleated RBC % Seg Neutrophils # Seg Neutrophils # Man Lymphocytes # (Manual) Eosinophils # (Manual) INR D-Dimer ABG pH POC ABG pCO2 POC ABG pO2 ABG pO2 ABG HCO3 ABG O2 Saturation ABG Base Excess ABG Hemoglobin ABG Oxyhemoglobin ABG Sodium ABG Potassium ABG Chloride ABG Glucose Oxyhemoglobin Carboxyhemoglobin Sodium 136 L Potassium 2.9 L* Chloride 90.2 L Carbon Dioxide 33 H BUN 42 H Creatinine 7.5 H Glucose 155 H POC Glucose 173 H Hemoglobin A1c Lactic Acid Calcium 6.1 L Phosphorus Magnesium Ferritin Total Bilirubin AST ALT Lactate Dehydrogenase C-Reactive Protein Albumin Triglycerides Arterial Blood Glucose Arterial Blood Ionized Calcium Urine Creatinine Coronavirus (PCR) Crossmatch 02/11/21 02/11/21 02/11/21 00:28 04:05 04:30 WBC RBC Hgb Hct MCV MCH MCHC RDW Plt Count Lymph % (Auto) Lymph # (Auto) Seg Neutrophils % Seg Neuts % (Manual) Lymphocytes % (Manual) Nucleated RBC % Seg Neutrophils # Seg Neutrophils # Man Lymphocytes # (Manual) Eosinophils # (Manual) INR D-Dimer ABG pH 7.307 L POC ABG pCO2 72.2 H POC ABG pO2 72.3 L ABG pO2 ABG HCO3 ABG O2 Saturation ABG Base Excess ABG Hemoglobin 8.2 L ABG Oxyhemoglobin ABG Sodium 132.3 L ABG Potassium 3.2 L ABG Chloride 91.0 L ABG Glucose 197 H Oxyhemoglobin Carboxyhemoglobin Sodium 135 L Potassium 3.3 L Chloride 87.1 L Carbon Dioxide 36 H BUN 71 H Creatinine 7.9 H Glucose 263 H POC Glucose 192 H Hemoglobin A1c Lactic Acid Calcium 6.2 L Phosphorus Magnesium Ferritin Total Bilirubin AST ALT Lactate Dehydrogenase C-Reactive Protein Albumin Triglycerides Arterial Blood Glucose 197 H Arterial Blood Ionized Calcium 3.3 L Urine Creatinine Coronavirus (PCR) Crossmatch 02/11/21 02/11/21 02/11/21 04:30 05:47 08:27 WBC RBC 2.22 L Hgb 7.2 L Hct 21.0 L MCV MCH MCHC RDW Plt Count Lymph % (Auto) 8.7 L Lymph # (Auto) 0.9 L Seg Neutrophils % 85.5 H Seg Neuts % (Manual) Lymphocytes % (Manual) Nucleated RBC % Seg Neutrophils # 9.2 H Seg Neutrophils # Man Lymphocytes # (Manual) Eosinophils # (Manual) INR 1.17 H D-Dimer 1930.92 H ABG pH POC ABG pCO2 POC ABG pO2 ABG pO2 ABG HCO3 ABG O2 Saturation ABG Base Excess ABG Hemoglobin ABG Oxyhemoglobin ABG Sodium ABG Potassium ABG Chloride ABG Glucose Oxyhemoglobin Carboxyhemoglobin Sodium Potassium Chloride Carbon Dioxide BUN Creatinine Glucose POC Glucose 189 H Hemoglobin A1c Lactic Acid Calcium Phosphorus Magnesium Ferritin Total Bilirubin AST ALT Lactate Dehydrogenase C-Reactive Protein Albumin Triglycerides Arterial Blood Glucose Arterial Blood Ionized Calcium Urine Creatinine Coronavirus (PCR) Crossmatch 02/11/21 02/11/21 02/11/21 09:00 09:00 13:18 WBC RBC Hgb Hct MCV MCH MCHC RDW Plt Count Lymph % (Auto) Lymph # (Auto) Seg Neutrophils % Seg Neuts % (Manual) Lymphocytes % (Manual) Nucleated RBC % Seg Neutrophils # Seg Neutrophils # Man Lymphocytes # (Manual) Eosinophils # (Manual) INR D-Dimer ABG pH POC ABG pCO2 POC ABG pO2 ABG pO2 ABG HCO3 ABG O2 Saturation ABG Base Excess ABG Hemoglobin ABG Oxyhemoglobin ABG Sodium ABG Potassium ABG Chloride ABG Glucose Oxyhemoglobin Carboxyhemoglobin Sodium Potassium Chloride Carbon Dioxide BUN Creatinine Glucose 126 H POC Glucose 160 H Hemoglobin A1c Lactic Acid Calcium Phosphorus Magnesium Ferritin 1253.0 H Total Bilirubin AST ALT Lactate Dehydrogenase 649 H C-Reactive Protein 12.60 H Albumin Triglycerides Arterial Blood Glucose Arterial Blood Ionized Calcium Urine Creatinine Coronavirus (PCR) Crossmatch 02/11/21 02/11/21 02/11/21 14:30 16:59 22:34 WBC RBC Hgb 7.1 L 6.7 L Hct 20.5 L 19.9 L* MCV MCH MCHC RDW Plt Count Lymph % (Auto) Lymph # (Auto) Seg Neutrophils % Seg Neuts % (Manual) Lymphocytes % (Manual) Nucleated RBC % Seg Neutrophils # Seg Neutrophils # Man Lymphocytes # (Manual) Eosinophils # (Manual) INR D-Dimer ABG pH POC ABG pCO2 POC ABG pO2 ABG pO2 ABG HCO3 ABG O2 Saturation ABG Base Excess ABG Hemoglobin ABG Oxyhemoglobin ABG Sodium ABG Potassium ABG Chloride ABG Glucose Oxyhemoglobin Carboxyhemoglobin Sodium Potassium Chloride Carbon Dioxide BUN Creatinine Glucose POC Glucose 151 H Hemoglobin A1c Lactic Acid Calcium Phosphorus Magnesium Ferritin Total Bilirubin AST ALT Lactate Dehydrogenase C-Reactive Protein Albumin Triglycerides Arterial Blood Glucose Arterial Blood Ionized Calcium Urine Creatinine Coronavirus (PCR) Crossmatch 02/11/21 02/12/21 02/12/21 23:42 04:41 05:19 WBC RBC Hgb Hct MCV MCH MCHC RDW Plt Count Lymph % (Auto) Lymph # (Auto) Seg Neutrophils % Seg Neuts % (Manual) Lymphocytes % (Manual) Nucleated RBC % Seg Neutrophils # Seg Neutrophils # Man Lymphocytes # (Manual) Eosinophils # (Manual) INR D-Dimer ABG pH POC ABG pCO2 POC ABG pO2 ABG pO2 69.0 L ABG HCO3 32.5 H ABG O2 Saturation ABG Base Excess 7.7 H ABG Hemoglobin 5.1 L ABG Oxyhemoglobin ABG Sodium ABG Potassium ABG Chloride ABG Glucose Oxyhemoglobin 94.7 L Carboxyhemoglobin Sodium Potassium Chloride Carbon Dioxide BUN Creatinine Glucose POC Glucose 165 H 153 H Hemoglobin A1c Lactic Acid Calcium Phosphorus Magnesium Ferritin Total Bilirubin AST ALT Lactate Dehydrogenase C-Reactive Protein Albumin Triglycerides Arterial Blood Glucose Arterial Blood Ionized Calcium Urine Creatinine Coronavirus (PCR) Crossmatch 02/12/21 02/12/21 06:35 06:35 WBC RBC 2.21 L Hgb 7.2 L Hct 20.7 L MCV MCH 33 H MCHC 35 H RDW Plt Count Lymph % (Auto) Lymph # (Auto) Seg Neutrophils % Seg Neuts % (Manual) Lymphocytes % (Manual) Nucleated RBC % Seg Neutrophils # Seg Neutrophils # Man Lymphocytes # (Manual) Eosinophils # (Manual) INR D-Dimer ABG pH POC ABG pCO2 POC ABG pO2 ABG pO2 ABG HCO3 ABG O2 Saturation ABG Base Excess ABG Hemoglobin ABG Oxyhemoglobin ABG Sodium ABG Potassium ABG Chloride ABG Glucose Oxyhemoglobin Carboxyhemoglobin Sodium 135 L Potassium 3.4 L Chloride 91.8 L Carbon Dioxide 36 H BUN 57 H Creatinine 6.8 H Glucose 163 H POC Glucose Hemoglobin A1c Lactic Acid Calcium 7.0 L Phosphorus Magnesium Ferritin Total Bilirubin AST ALT Lactate Dehydrogenase C-Reactive Protein Albumin Triglycerides Arterial Blood Glucose Arterial Blood Ionized Calcium Urine Creatinine Coronavirus (PCR) Crossmatch
[2021-02-12] MEDS: FAMOTIDINE 20 MG TAB PO SCH (09:25)
[2021-02-12] MEDS: ENOXAPARIN 120 MG/0.8 ML INJ SUB-Q SCH (09:25)
[2021-02-12] MEDS ORDERED: MAGNESIUM SULFATE 2 GM/50 ML BAG IV ONE (10:00)
--- NOTE | 2021-02-12 11:49 | Progress Note ---
Assessment and Plan Cultures: Blood culture 02/08/2021 no growth today SARS CoV2 PCR positive 01/22/2021 respiratory culture: Usual respiratory dillon Blood Culture 01/30/2021 no growth today Urine culture 01/30/2021 no growth today Sputum culture 01/30/2021 usual respiratory dillon Blood culture 02/04/2021 coag negative staph 2 of 4 Urine culture 02/04/2021 no growth Sputum culture 02/04/2021 Maegan albicans Assessment: 60 year old male with history of morbid obesity admitted on 01/22/2021 secondary to 3-day history of worsening shortness of breath associated with fever, chills, loss of smell and taste: #Severe sepsis with septic shock: remains with intermittent high fever now off pressors. Right IJ removed. Likely due to GPC bacteremia. Initial sepsis due to bilateral pneumonia. Urinalysis negative. Procalcitonin elevated in the setting of DEISI. Leg US no DVT. #Coag-neg Staph bacteremia: new blood culture on 02/04/2021 with GPC 2 of 4 bottles, possible real. #Critical COVID-19 pneumonia: Patient remains intubated. Chest x-ray with bilateral airspace disease. Inflammatory markers worsening, D-dimer>10K. CRP 40-->23. Completed remdesivir. #Acute respiratory failure: Remains on the ventilator #Transaminitis: Likely secondary to COVID-19. #DEISI: Worsening, On hemodialysis Recommendations: -Completed vancomycin. -Monitor fever GLourdes Walker MD [facility] ([facility] O: [phone] F: [phone] Subjective Date of service: 02/12/21 Principal diagnosis: DEISI Interval history: Afebrile, normal white count. Remains on the vent. Objective - Exam Narrative Exam: Physical exam deferred to reduce risk of transmission of COVID-19. Please refer to primary team's note. - Constitutional Vitals: Vital Signs Temp Pulse Resp BP Pulse Ox 99.6 F 96 H 34 H 124/69 97 02/12/21 08:00 02/12/21 11:00 02/12/21 11:00 02/12/21 11:00 02/12/21 11:00 Temperature -Last 24 Hours Temperature 99.6 F Temperature 99.6 F Temperature 100.0 F Temperature 99.3 F Temperature 99.3 F Temperature 99.1 F Temperature 99.3 F Temperature 99.3 F Temperature 99.1 F Temperature 99.1 F Temperature 98.7 F Temperature 99.3 F Temperature 98.8 F Temperature 99.6 F Temperature 98.8 F Temperature 99.2 F - Labs CBC & Chem 7: 02/12/21 06:35 02/12/21 06:35 Labs: Abnormal lab results 02/09/21 02/11/21 02/11/21 Range/Units 13:40 13:18 14:30 RBC (3.65-5.03) M/mm3 Hgb 7.1 L (11.8-15.2) gm/dl Hct 20.5 L (35.5-45.6) % MCH (28-32) pg MCHC (32-34) % ABG pO2 (80.0-90.0) mm Hg ABG HCO3 (20.0-26.0) mmol/L ABG Base Excess (-2.0-3.0) mmol/L ABG Hemoglobin (14.0-18.0) gm/dl Oxyhemoglobin (95.0-99.0) % Sodium (137-145) mmol/L Potassium (3.6-5.0) mmol/L Chloride (98-107) mmol/L Carbon Dioxide (22-30) mmol/L BUN (9-20) mg/dL Creatinine (0.8-1.3) mg/dL Glucose (75-100) mg/dL POC Glucose 160 H (70-105) mg/dL Calcium (8.4-10.2) mg/dL Magnesium (1.7-2.3) mg/dL Crossmatch See Detail 02/11/21 02/11/21 02/11/21 Range/Units 16:59 22:34 23:42 RBC (3.65-5.03) M/mm3 Hgb 6.7 L (11.8-15.2) gm/dl Hct 19.9 L* (35.5-45.6) % MCH (28-32) pg MCHC (32-34) % ABG pO2 (80.0-90.0) mm Hg ABG HCO3 (20.0-26.0) mmol/L ABG Base Excess (-2.0-3.0) mmol/L ABG Hemoglobin (14.0-18.0) gm/dl Oxyhemoglobin (95.0-99.0) % Sodium (137-145) mmol/L Potassium (3.6-5.0) mmol/L Chloride (98-107) mmol/L Carbon Dioxide (22-30) mmol/L BUN (9-20) mg/dL Creatinine (0.8-1.3) mg/dL Glucose (75-100) mg/dL POC Glucose 151 H 165 H (70-105) mg/dL Calcium (8.4-10.2) mg/dL Magnesium (1.7-2.3) mg/dL Crossmatch 02/12/21 02/12/21 02/12/21 Range/Units 04:41 05:19 06:35 RBC (3.65-5.03) M/mm3 Hgb (11.8-15.2) gm/dl Hct (35.5-45.6) % MCH (28-32) pg MCHC (32-34) % ABG pO2 69.0 L (80.0-90.0) mm Hg ABG HCO3 32.5 H (20.0-26.0) mmol/L ABG Base Excess 7.7 H (-2.0-3.0) mmol/L ABG Hemoglobin 5.1 L (14.0-18.0) gm/dl Oxyhemoglobin 94.7 L (95.0-99.0) % Sodium 135 L (137-145) mmol/L Potassium 3.4 L (3.6-5.0) mmol/L Chloride 91.8 L (98-107) mmol/L Carbon Dioxide 36 H (22-30) mmol/L BUN 57 H (9-20) mg/dL Creatinine 6.8 H (0.8-1.3) mg/dL Glucose 163 H (75-100) mg/dL POC Glucose 153 H (70-105) mg/dL Calcium 7.0 L (8.4-10.2) mg/dL Magnesium (1.7-2.3) mg/dL Crossmatch 02/12/21 02/12/21 Range/Units 06:35 08:40 RBC 2.21 L (3.65-5.03) M/mm3 Hgb 7.2 L (11.8-15.2) gm/dl Hct 20.7 L (35.5-45.6) % MCH 33 H (28-32) pg MCHC 35 H (32-34) % ABG pO2 (80.0-90.0) mm Hg ABG HCO3 (20.0-26.0) mmol/L ABG Base Excess (-2.0-3.0) mmol/L ABG Hemoglobin (14.0-18.0) gm/dl Oxyhemoglobin (95.0-99.0) % Sodium (137-145) mmol/L Potassium (3.6-5.0) mmol/L Chloride (98-107) mmol/L Carbon Dioxide (22-30) mmol/L BUN (9-20) mg/dL Creatinine (0.8-1.3) mg/dL Glucose (75-100) mg/dL POC Glucose (70-105) mg/dL Calcium (8.4-10.2) mg/dL Magnesium 1.60 L (1.7-2.3) mg/dL Crossmatch
[2021-02-12] MEDS: EPOETIN ALFA-EPBX 20,000 UNIT/1 ML VIAL IV PRN (16:28)
--- NOTE | 2021-02-12 17:59 | Progress Note ---
<SALVADORTamieBRENDALourdes - Last Filed: 02/12/21 18:23> Assessment and Plan Assessment and plan: This is a 60-year-old male with diabetes mellitus, hypertension, hyperlipidemia, chronic renal insufficiency who was admitted on 01/23 as a COVID-19 PUI with Sepsis, COVID-19 pneumonia, coag negative staph bacteremia, acute hypoxic r espiratory failure, and acute kidney injury. Sepsis COVID-19 pneumonia Coag-neg Staph bacteremia Acute hypoxic respiratory failure Acute kidney injury, HD initiated 02/03 Hyponatremia Hypokalemia Hypochloremia Metabolic alkalosis Diabetes mellitus Hypertension Hyperlipidemia Chronic renal insufficiency Elevated D-dimer -CCM, nephrology, infectious disease consulted, appreciate recommendations -Antibiotic therapy -COVID-19 PCR positive, Pneumonia on CXR -Steroid therapy, s/p remdesivir -Mechanical ventilation, wean as tolerated -VAP bundle -HD per nephrology -Trend BMP, cBC -Bilateral lower extremity and upper extremity Doppler ultrasound negative for DVT/SVT -Therapeutic Lovenox -SSI and Long-acting insulin -Accu-Cheks every 6 while on tube feedings -Hold home antihypertensive regimen for now as he is still needing vasopressor support -Blood pressure monitoring per protocol -NaHCO3 gtt -Sedated with Precedex, Ativan, fentanyl DVT/GI prophylaxis: SCDs to bilateral lower extremities while in bed, heparin subcu, PPI Dispo: ICU The high probability of a clinically significant, sudden or life threatening deterioration of the [multi] system(s) required my full and direct attention, intervention and personal management. The aggregate critical care time was [32] minutes. This time is in addition to time spent performing reported procedures but includes the following: [x] Data Review and interpretation [x] Patient assessment and monitoring of vital signs [x] Documentation [x] Medication orders and management History Interval history: This is a 60-year-old male with diabetes mellitus, hypertension, hyperlipidemia, chronic renal insufficiency presents to the emergency department on 01/23 with shortness of breath, fevers chills, loss of smell and taste and body aches for the past 3 days via EMS. Per EMS patient's oxygen saturation on room air was 50% and after being placed on nonrebreather it increased 75%. Upon arrival to the emergency department patient was being bagged by EMS. In the emergency room patient was intubated due to severe hypoxia, increased work of breathing and lethargy. Patient was sedated on propofol and fentanyl. Patient presented with fever, tachycardia, tachypnea and acute hypoxic respiratory failure with PNA on CXR meeting Sepsis criteria. Lab work in the emergency department revealed hyponatremia, hypokalemia, hypochloremia, elevated CR/BUN and CXR showed bilateral pneumonia. Patient was admitted to the hospital service as a COVID-19 PUI with consults to infectious disease, nephrology and critical care medicine. 01/24/2021: Patient is intubated and sedated, patient is positive for COVID-19 infection. ID was consulted and put on dexamethasone and remdesivir. Patient has DEISI and nephrology is following. Creatinine stable, patient is urinating. Discussed with nephrology and he is okay with remdesivir. Pulmonary critical care is following for his vent setting. PEEP of 8 and FiO2 of 85%. Patient was alert and off sedatives. 01/25/2021; patient is intubated and on mechanical ventilation. Continue with treatment of Covid. Nephrology and ID is following. Pulmonary is following for vent management 01/26: Remains on mechanical ventilation and [facility] increased his PEEP. [facility] has ordered Precedex for sedation. Possibly need to prone this p.m. No acute events reported overnight. This morning his D-dimer is greater than 10,000 and we have started him on Lovenox 120 mg daily. Nutrition has been consulted for initiation of tube feedings. Patient remains sedated on propofol 40 and fentanyl for the time my examination this morning. 01/27: Continue Lovenox, remdesivir and empiric antibiotics. Patient had a T-max of 101 overnight. The time of examination patient is on CMV 500/18/14/0.61. Kidney function slightly worsened. Sedated on fentanyl ground-level fall and Precedex. Nephrology has increased IV fluids to 100 ml/hr. Continue to trend BMP and CBC. Sedation vacation attempt by RN this AM. 01/28: Patient completed antibiotics today CCM will paralyze patient and increase sedation. PICC line ordered for possible vasopressor therapy need. Patient's D-dimer remains greater than 10,000 and he still has hyperchloremia. Patient's kidney function has improved today. May need to prone the patient if no improvement in oxygenation is noted in the next 24 hours. The time of my examination patient is sedated with propofol, fentanyl and Precedex and is on a ssist control 500/18/16/0.80 hypoxic on ABG on 60% FiO2. 01/29: Patient was started on Nimbex yesterday and his ABG this morning showed respiratory acidosis with hypercapnia and his respiratory rate was increased. We will obtain a repeat ABG this afternoon. This morning patient is hypernatremic, hyperkalemic and hyperchloremic. His potassium has been corrected with the management and will obtain repeat BMP tomorrow. His kidney functions have remained stable and we will await nephrology's input. No acute events reported overnight. This morning the time my examination patient sedated with propofol, Precedex and fentanyl and paralyzed with Nimbex. He is on assist control 500/24/16 0.80. 01/30: This morning patient is hypokalemic again and was given Kayexalate. Patient has hypernatremia and hyper chloremia and his renal function is slightly worse after receiving Lasix yesterday. His D-dimer remains greater than 10,000 and he is still on a paralytic. Patient is sedated on Precedex, fentanyl, propofol. Mechanical ventilation settings seven-point /61/28. [facility] has decided to continue paralytics for 48 more hours and will attempt proning the patient. Increased free water flushes 300 cc every 4 hours. Patient states has restarted his antibiotics cefepime and vancomycin and recultured. 01/31/21 Hyperkalemia, Treated 02/01/21 Hyperkalemia, Treated 02/02: Patient's kidney function continues to worsen and a stat BMP this morning shows BUN/creatinine 20/6.1 and he remains hypocalcemic and hypernatremic, hypokalemic and hypochloremic. Patient received 2 g of calcium gluconate and Kayexalate and his repeat potassium was 4.3 this afternoon. He remains antibiotic therapy and steroids. Nephrology has placed the patient on bicarb drip given metabolic acidosis and has decided to hold off hemodialysis till tomorrow.The time my examination patient is sedated on fentanyl, Precedex and on assist control 500/20/12/0.70. s/p paralytic. 02/03: Today patient's ABG shows respiratory acidosis however it is improving, hypernatremia, hyperchloremia, metabolic acidosis on BMP, worsening kidney function BUN/creatinine 130/9.2 with hyperphosphatemia. Patient received a Vas- Cath to his right IJ for initiation of dialysis. At the time of my examination patient remains sedated on fentanyl, propofol and Precedex with vasopressor support with Levophed at 2. 02/04: At the time of examination patient was on assist control tidal volume 500, rate 40, PEEP of 12, FiO2 85%. Patient had a T-max of 100.9 and infectious disease has stopped his vancomycin given negative MRSA. This afternoon patient respiked his temperature and was pancultured again. Patient was started on hemodialysis yesterday and will receive HD again today. Patient is sedated on Precedex, propofol, fentanyl and remains on Levophed. He is on assist control tidal volume 500, rate of 30, PEEP of 12, FiO2 of 85%. Patient still has some respiratory acidosis however his hypernatremia and hyperchloremia have improved and his metabolic acidosis has resolved. Patient will receive hemodialysis today 02/05: Patient continues to have low-grade fever temp this morning time examination he was on assist control tidal volume 500, and sedated on propofol/fentanyl/Precedex and is on Levophed. Hemodialysis per nephrology. Antibiotics per ID. Patient's blood culture from 02/04 grew gram-positive cocci in clusters in 1/2 bottles and he was started on vancomycin. 02/06: Patients ABG showed respiratory acidosis and the tracings were changed however a repeat ABG showed showed acidosis.CCM will start a bicarb drip after giving 2 amps of bicarb push. Yesterday patient blood cultures grew gram- positive cocci and he was started on vancomycin. At the time my examination patient was on assist control tidal volume 550, rate 34, PEEP 16, FiO2 90% and sedated on fentanyl, Precedex, propofol elevated pressure support with Levophed. Bilateral lower extremity Doppler ultrasounds done yesterday showed no evidence of DVT/SVT. 02/07/2021; patient is still on the vent with PEEP of 16 and FiO2 of 90%, sedated with fentanyl Precedex and propofol. Patient still requiring Levophed. Patient was sedated yesterday and was given bicarb push. Blood culture grew gram-positive cocci in clusters and he is on vancomycin, will follow identification. 02/08/2021;patient is still on the vent with PEEP of 16 and FiO2 of 90%, sedated with fentanyl Precedex and propofol. Patient still requiring Levophed. Patient was sedated yesterday and was given bicarb push. Blood culture grew gram- positive cocci in clusters and he is on vancomycin, will follow identification. Patient is currently on dialysis. Patient is anemic transfuse if hemoglobin is below 7. 02/09: This morning patient has slight hypokalemia, hypochorlemia, hyponatremia and metabolic alkalosis. [facility] will continue bicarb gtt given that the patient does not have HD access at this time. We will replete the potassium and recheck BMP in the AM. We will type and cross in anticipation of PRBC transfusion. This morning he is sedated on Ativan, fentayl, and precedex. Will obtain a triglyceride level today in hopes to resume propofol. Patient is alkalotic and BMP however we will continue with bicarb drip per [facility] given that the patient does not have any access for hemodialysis. Anticipate replacing hemodialysis catheter tomorrow or Tuesday. The time my examination he is on AC TV 550, Rate 34, PeeP 16, FiO2 .65. 02/10: A.m. labs still pending, [facility] plans to replace HD catheter tomorrow as the patient is still febrile however his fever curve is trending down, remains on a bicarb drip and on vancomycin. Today at the time my examination patient was sedated on Precedex, Ativan and fentanyl and he is on assist control tidal 11/04/1951, rate 34, PEEP 16, FiO2 65%. Overnight patient was hypotensive and received 1 dose of midodrine. 02/11: Patient is still having low-grade temperatures that we will obtain a bilateral lower upper extremity venous Doppler ultrasound given that his repeat cultures have been negative so far. Patient received a Vas-Cath today for hemodialysis. The time examination patient is on assist control tidal volume 550, rate of 34, PEEP of 16 and FiO2 of 75%. Patient was hypokalemic and anemic yesterday which were both repleted with potassium and 1 unit PRBC. 02/12: 02/12: Patient had a 12-second run of V. tach today, his potassium and magnesium were low which was repleted. Renal adjusted potassium bath. We will obtain a triglyceride level in hopes to restarting to prevent as needed. This morning at the time my examination patient was sedated on fentanyl, Ativan and Precedex and remained on a bicarb drip. He was on assist control tidal volume 550, rate 34, PEEP 16, FiO2 85%. We will obtain a occult stool given no evident source of bleeding and need for transfusion. Anemia possibly due to hemodialysis. Hospitalist Physical - Constitutional Vitals: Temp Pulse Resp BP Pulse Ox 98.1 F 101 H 24 117/64 97 02/12/21 17:33 02/12/21 16:42 02/12/21 16:41 02/12/21 16:42 02/12/21 16:42 General appearance: Present: no acute distress, well-nourished, other (Sedated on mechanical ventilation) - EENT Eyes: Present: PERRL ENT: poor dentition - Neck Neck: Present: normal ROM - Respiratory Respiratory effort: normal - Cardiovascular Rhythm: regular Heart Sounds: Present: S1 & S2. Absent: systolic murmur, diastolic murmur - Extremities Extremities: no ischemia, pulses intact, pulses symmetrical, normal temperature, normal color Peripheral Pulses: within normal limits - Abdominal General gastrointestinal: soft, non-tender, non-distended, normal bowel sounds - Integumentary Integumentary: Present: warm, dry - Psychiatric Psychiatric: other (sedated) - Neurologic Neurologic: moves all extremities, other (sedated) - Allied Health Allied health notes reviewed: nursing, RT, social work HEART Score - HEART Score Risk factors: 1-2 risk factors Troponin: < normal limit - Critical Actions Critical Actions: 0-3 pts:0.9-1.7%risk of adverse cardiac event.Candidate for discharge Results - Labs CBC & Chem 7: 02/12/21 06:35 02/12/21 06:35 Labs: Laboratory Last Values WBC 10.1 K/mm3 (4.5-11.0) 02/12/21 06:35 RBC 2.21 M/mm3 (3.65-5.03) L 02/12/21 06:35 Hgb 7.2 gm/dl (11.8-15.2) L 02/12/21 06:35 Hct 20.7 % (35.5-45.6) L 02/12/21 06:35 MCV 94 fl (84-94) 02/12/21 06:35 MCH 33 pg (28-32) H 02/12/21 06:35 MCHC 35 % (32-34) H 02/12/21 06:35 RDW 14.5 % (13.2-15.2) 02/12/21 06:35 Plt Count 234 K/mm3 (140-440) 02/12/21 06:35 Lymph % (Auto) 8.7 % (13.4-35.0) L 02/11/21 04:30 [place] % (Auto) 3.8 % (0.0-7.3) 02/11/21 04:30 Eos % (Auto) 0.9 % (0.0-4.3) 02/11/21 04:30 Baso % (Auto) 1.0 % (0.0-1.8) 02/11/21 04:30 Lymph # (Auto) 0.9 K/mm3 (1.2-5.4) L 02/11/21 04:30 [place] # (Auto) 0.4 K/mm3 (0.0-0.8) 02/11/21 04:30 Eos # (Auto) 0.1 K/mm3 (0.0-0.4) 02/11/21 04:30 Baso # (Auto) 0.0 K/mm3 (0.0-0.1) 02/11/21 04:30 Add Manual Diff Complete 02/09/21 05:10 Total Counted 100 02/09/21 05:10 Seg Neutrophils % 85.5 % (40.0-70.0) H 02/11/21 04:30 Seg Neuts % (Manual) 82.0 % (40.0-70.0) H 02/09/21 05:10 Band Neutrophils % 4.0 % 02/09/21 05:10 Lymphocytes % (Manual) 9.0 % (13.4-35.0) L 02/09/21 05:10 Reactive Lymphs % (Man) 1.0 % 01/27/21 05:29 Monocytes % (Manual) 2.0 % (0.0-7.3) 02/09/21 05:10 Eosinophils % (Manual) 1.0 % (0.0-4.3) 02/09/21 05:10 Basophils % (Manual) 1.0 % (0.0-1.8) 02/06/21 Unknown Metamyelocytes % 2.0 % 02/09/21 05:10 Nucleated RBC % 1.0 % (0.0-0.9) H 02/09/21 05:10 Seg Neutrophils # 9.2 K/mm3 (1.8-7.7) H 02/11/21 04:30 Seg Neutrophils # Man 8.9 K/mm3 (1.8-7.7) H 02/09/21 05:10 Band Neutrophils # 0.4 K/mm3 02/09/21 05:10 Lymphocytes # (Manual) 1.0 K/mm3 (1.2-5.4) L 02/09/21 05:10 Abs React Lymphs (Man) 0.0 K/mm3 02/09/21 05:10 Monocytes # (Manual) 0.2 K/mm3 (0.0-0.8) 02/09/21 05:10 Eosinophils # (Manual) 0.1 K/mm3 (0.0-0.4) 02/09/21 05:10 Basophils # (Manual) 0.0 K/mm3 (0.0-0.1) 02/09/21 05:10 Metamyelocytes # 0.2 K/mm3 02/09/21 05:10 Myelocytes # 0.0 K/mm3 02/09/21 05:10 Promyelocytes # 0.0 K/mm3 02/09/21 05:10 Blast Cells # 0.0 K/mm3 02/09/21 05:10 WBC Morphology Not Reportable 02/09/21 05:10 Hypersegmented Neuts Not Reportable 02/09/21 05:10 Hyposegmented Neuts Not Reportable 02/09/21 05:10 Hypogranular Neuts Not Reportable 02/09/21 05:10 Smudge Cells Not Reportable 02/09/21 05:10 Toxic Granulation Not Reportable 02/09/21 05:10 Toxic Vacuolation Not Reportable 02/09/21 05:10 Dohle Bodies Not Reportable 02/09/21 05:10 Pelger-Huet Anomaly Not Reportable 02/09/21 05:10 Fátima Rods Not Reportable 02/09/21 05:10 Platelet Estimate Consistent w auto 02/09/21 05:10 Clumped Platelets Not Reportable 02/09/21 05:10 Plt Clumps, EDTA Not Reportable 02/09/21 05:10 Large Platelets Few 02/09/21 05:10 Giant Platelets Not Reportable 02/09/21 05:10 Platelet Satelliting Not Reportable 02/09/21 05:10 Plt Morphology Comment Not Reportable 02/09/21 05:10 RBC Morphology Not Reportable 02/09/21 05:10 Dimorphic RBCs Not Reportable 02/09/21 05:10 Polychromasia Few 02/09/21 05:10 Hypochromasia Not Reportable 02/09/21 05:10 Poikilocytosis Not Reportable 02/09/21 05:10 Anisocytosis 1+ 02/09/21 05:10 Microcytosis Not Reportable 02/09/21 05:10 Macrocytosis Not Reportable 02/09/21 05:10 Spherocytes Not Reportable 02/09/21 05:10 Pappenheimer Bodies Not Reportable 02/09/21 05:10 Sickle Cells Not Reportable 02/09/21 05:10 Target Cells Not Reportable 02/09/21 05:10 Tear Drop Cells Not Reportable 02/09/21 05:10 Ovalocytes Not Reportable 02/09/21 05:10 Helmet Cells Not Reportable 02/09/21 05:10 [place] Bodies Not Reportable 02/09/21 05:10 [place] Rings Not Reportable 02/09/21 05:10 [place] Cells Not Reportable 02/09/21 05:10 Bite Cells Not Reportable 02/09/21 05:10 Crenated Cell Not Reportable 02/09/21 05:10 Elliptocytes Not Reportable 02/09/21 05:10 Acanthocytes (Spur) Not Reportable 02/09/21 05:10 Rouleaux Not Reportable 02/09/21 05:10 Hemoglobin C Crystals Not Reportable 02/09/21 05:10 Schistocytes Not Reportable 02/09/21 05:10 Malaria parasites Not Reportable 02/09/21 05:10 [place] Bodies Not Reportable 02/09/21 05:10 Hem Pathologist Commnt No 02/09/21 05:10 PT 14.9 Sec. (12.2-14.9) 02/11/21 08:27 INR 1.17 (0.87-1.13) H 02/11/21 08:27 D-Dimer 1930.92 ng/mlDDU (0-234) H 02/11/21 08:27 ABG pH 7.421 pH Units (7.350-7.450) 02/12/21 04:41 POC ABG pCO2 72.2 mmHg (32.0-48.0) H 02/11/21 04:05 ABG pCO2 51.2 mm Hg 02/12/21 04:41 POC ABG pO2 72.3 mmHg (83-108) L 02/11/21 04:05 ABG pO2 69.0 mm Hg (80.0-90.0) L 02/12/21 04:41 POC ABG HCO3 35.3 02/11/21 04:05 ABG HCO3 32.5 mmol/L (20.0-26.0) H 02/12/21 04:41 ABG O2 Saturation 97.6 % (95.0-99.0) 02/12/21 04:41 ABG O2 Content 4.3 (0.0-44) 02/12/21 04:41 POC ABG Base Excess 7.7 02/11/21 04:05 ABG Base Excess 7.7 mmol/L (-2.0-3.0) H 02/12/21 04:41 ABG Hemoglobin 5.1 gm/dl (14.0-18.0) L 02/12/21 04:41 ABG Oxyhemoglobin 92.2 (94-98) L 02/09/21 03:21 ABG Carboxyhemoglobin 2.4 % (0.0-5.0) 02/12/21 04:41 ABG Methemoglobin 0.6 % (0.0-1.5) 02/12/21 04:41 ABG Sodium 132.3 mmol/L (136.0-145.0) L 02/11/21 04:05 ABG Potassium 3.2 mmol/L (3.40-4.50) L 02/11/21 04:05 ABG Chloride 91.0 mmol/L (98-107) L 02/11/21 04:05 ABG Glucose 197 mg/dL (65-95) H 02/11/21 04:05 Oxyhemoglobin 94.7 % (95.0-99.0) L 02/12/21 04:41 Carboxyhemoglobin 1.5 (0.5-1.5) 02/09/21 03:21 FiO2 75 % 02/12/21 04:41 FiO2 % 80 02/11/21 04:05 Sodium 135 mmol/L (137-145) L 02/12/21 06:35 Potassium 3.4 mmol/L (3.6-5.0) L 02/12/21 06:35 Chloride 91.8 mmol/L (98-107) L 02/12/21 06:35 Carbon Dioxide 36 mmol/L (22-30) H 02/12/21 06:35 Anion Gap 11 mmol/L 02/12/21 06:35 BUN 57 mg/dL (9-20) H 02/12/21 06:35 Creatinine 6.8 mg/dL (0.8-1.3) H 02/12/21 06:35 Estimated GFR 10 ml/min 02/12/21 06:35 BUN/Creatinine Ratio 8 % 02/12/21 06:35 Glucose 163 mg/dL (75-100) H 02/12/21 06:35 POC Glucose 165 mg/dL (70-105) H 02/12/21 17:19 Hemoglobin A1c 6.3 % (4-6) H 02/02/21 16:00 Lactic Acid 1.90 mmol/L (0.7-2.0) 01/24/21 14:38 Calcium 7.0 mg/dL (8.4-10.2) L 02/12/21 06:35 Phosphorus 3.60 mg/dL (2.5-4.5) D 02/08/21 06:00 Magnesium 1.60 mg/dL (1.7-2.3) L 02/12/21 08:40 Ferritin 1253.0 ng/mL (30.0-300.0) H 02/11/21 09:00 Total Bilirubin 1.50 mg/dL (0.1-1.2) H 01/26/21 05:47 AST 37 units/L (5-40) 01/26/21 05:47 ALT 29 units/L (7-56) 01/26/21 05:47 Alkaline Phosphatase 70 units/L (35-129) 01/26/21 05:47 Lactate Dehydrogenase 649 units/L (91-180) H 02/11/21 09:00 C-Reactive Protein 12.60 mg/dL (0.00-1.30) H 02/11/21 09:00 Total Protein 7.2 g/dL (6.3-8.2) 01/26/21 05:47 Albumin 2.2 g/dL (3.9-5) L 01/26/21 05:47 Albumin/Globulin Ratio 0.4 % 01/26/21 05:47 Triglycerides 182 mg/dL (2-149) H 02/12/21 10:45 Procalcitonin 0.92 ng/mL (<0.15) 01/22/21 22:57 Arterial Blood Glucose 197 mg/dL (65-95) H 02/11/21 04:05 Arterial Blood Ionized Calcium 3.3 mg/dL (4.6-5.3) L 02/11/21 04:05 Urine Color Nehal (Yellow) 01/22/21 22:39 Urine Turbidity Cloudy (Clear) 01/22/21 22:39 Urine pH 5.0 (5.0-7.0) 01/22/21 22:39 Ur Specific [place] 1.017 (1.003-1.030) 01/22/21 22:39 Urine Protein 100 mg/dl mg/dL (Negative) 01/22/21 22:39 Urine Glucose (UA) Neg mg/dL (Negative) 01/22/21 22:39 Urine Ketones Neg mg/dL (Negative) 01/22/21 22:39 Urine Blood Mod (Negative) 01/22/21 22:39 Urine Nitrite Neg (Negative) 01/22/21 22:39 Urine Bilirubin Neg (Negative) 01/22/21 22:39 Urine Urobilinogen 2.0 mg/dL (<2.0) 01/22/21 22:39 Ur Leukocyte Esterase Mod (Negative) 01/22/21 22:39 Urine WBC (Auto) < 1.0 /HPF (0.0-6.0) 01/22/21 22:39 Urine RBC (Auto) < 1.0 /HPF (0.0-6.0) 01/22/21 22:39 U Epithel Cells (Auto) < 1.0 /HPF (0-13.0) 01/22/21 22:39 Urine Osmolality 416 Mosm/kg 01/30/21 12:15 Urine Total Volume 2300 ml 01/30/21 12:00 Urine Creatinine 53.0 mg/dL (0.1-20.0) H 01/30/21 12:00 Ur Creatinine 24 Hour 1.2 (0.8-2.8) 01/30/21 12:00 Urine Sodium 28 mmol/L 01/22/21 22:39 Nasal Screen MRSA (PCR) Negative (Negative) 02/02/21 13:20 Random Vancomycin 13.7 ug/mL (0-40.0) 02/07/21 10:40 Coronavirus (PCR) Positive (Negative) A 01/23/21 08:41 Hepatitis A IgM Ab Non-reactive (NonReactive) 02/03/21 Unknown Hep Bs Antigen Non-reactive (Negative) 02/03/21 Unknown Hep B Core IgM Ab Non-reactive (NonReactive) 02/03/21 Unknown Hepatitis C Antibody Non-reactive (NonReactive) 02/03/21 Unknown Blood Type B POSITIVE 02/09/21 13:40 Antibody Screen Negative 02/09/21 13:40 Crossmatch See Detail 02/09/21 13:40 Microbiology: Microbiology 02/08/21 15:12 Peripheral/Venous Blood Culture - Preliminary NO GROWTH AFTER 4 DAYS 02/08/21 15:12 Peripheral/Venous Blood Culture - Preliminary NO GROWTH AFTER 4 DAYS Black/IV: Voiding Method Indwelling Catheter Active Medications - Current Medications Current Medications: Generic Name Dose Route Start Last Admin Trade Name Freq PRN Reason Stop Dose Admin Acetaminophen 650 mg 01/23/21 02:25 02/11/21 18:20 Acetaminophen 650 Mg Rect Supp [place] 650 mg Q4H PRN Administration Pain, Mild (1-3) Acetaminophen 650 mg 01/24/21 12:58 02/11/21 04:09 Acetaminophen 325 Mg/10.15 Ml Oral Liqd Unit Dose FEEDTUBE 650 mg Q6H PRN Administration Pain, Mild (1-3) Lipase/Protease/Amylase 1 each 01/26/21 14:25 Lipase 10,500/Protease 25,000/Amylase 43,750 (Units) Dr Cap FEEDTUBE PRN PRN For Clogged Feeding Tube Dextrose 50 ml 01/27/21 07:24 Dextrose 50% In Water (25gm) 50 Ml Syringe IV Q30MIN PRN Hypoglycemia Protocol Enoxaparin Sodium 120 mg 01/26/21 11:00 02/12/21 09:25 Enoxaparin 120 Mg/0.8 Ml Inj SUB-Q 120 mg Q24HR CECE Administration Famotidine 20 mg 02/10/21 10:00 02/12/21 09:25 Famotidine 20 Mg Tab PO 20 mg DAILY CECE Administration Fentanyl 50 mcg 01/22/21 22:39 02/10/21 13:46 Fentanyl 100 Mcg/2 Ml Inj IV 50 mcg Q10MIN PRN Administration ANALGESIA Heparin Sodium (Porcine) 2,000 unit 02/11/21 09:38 Heparin 10,000 Units/10 Ml Vial IV SAGRARIO PRN hemodialysis Hydrophilic Ointment 1 applic 01/22/21 22:39 Lip Therapy Vaseline TP Q2HR PRN Dry Lips Fentanyl Citrate 2,000 mcg in 100 mls @ 6.124 mls/hr 01/22/21 23:00 02/12/21 14:15 Fentanyl Drip Premix IV 4 mcg/kg/hr TITR CECE 24.494 mls/hr Administration Protocol 1 MCG/KG/HR Propofol 1,000 mg in 100 mls @ 3.674 mls/hr 01/22/21 23:45 02/06/21 18:37 Diprivan 10 Mg/Ml IV 0 mcg/kg/min TITR CECE 0 mls/hr Titration Protocol 5 MCG/KG/MIN Norepinephrine 4 mg in 250 mls @ 7.5 mls/hr 01/28/21 14:00 02/08/21 06:08 Levophed Drip 4 Mg/Ns 250 Ml IV 0 mcg/min TITR CECE 0 mls/hr Titration Protocol 2 MCG/MIN Dexmedetomidine HCl 1,000 mcg/ 260 mls @ 6.368 mls/hr 01/30/21 20:00 02/12/21 15:35 Sodium Chloride IV 1.4 mcg/kg/hr TITRATE CECE 44.579 mls/hr Administration Protocol 0.2 MCG/KG/HR Sodium Bicarbonate 150 meq/ 1,150 mls @ 100 mls/hr 02/06/21 11:30 02/12/21 11:17 Dextrose IV 100 mls/hr DIRECT CECE Administration Lorazepam 100 mg/ Sodium 100 mls @ 1 mls/hr 02/06/21 19:00 02/10/21 01:00 Chloride/ Miscellaneous IV 1 mg/hr Information TITR CECE 1 mls/hr Titration Protocol 1 MG/HR Sodium Chloride 100 mls @ 999 mls/hr 02/11/21 09:38 Nacl 0.9% IV SAGR[place]IO PRN Hypotension Multi-Ingred Cream/Lotion/Oil/Oint 1 applic 01/22/21 22:39 02/01/21 09:33 Mineral Oil/Petrolatum, White Ophth Oint 3.5 Gm OU 1 applic Q4HR PRN Administration Dry Eye(s) Ondansetron HCl 4 mg 01/23/21 02:17 Ondansetron 4 Mg/2 Ml Inj IV Q8H PRN Nausea And Vomiting Simple Syrup 15 ml 01/26/21 14:25 Simple Syrup 15 Ml FEEDTUBE PRN PRN Hypoglycemia Simple Syrup 30 ml 01/26/21 14:25 Simple Syrup 15 Ml FEEDTUBE PRN PRN Hypoglycemia Sodium Bicarbonate 325 mg 01/26/21 14:25 Sodium Bicarbonate 325 Mg Tab FEEDTUBE PRN PRN For Clogged Feeding Tube Nutrition/Malnutrition Assess - Dietary Evaluation Nutrition/Malnutrition Findings: Nutrition Notes Start: 01/26/21 13:59 Freq: Status: Active Protocol: Document 02/10/21 13:44 CW (Rec: 02/10/21 13:57 CW [id number]) Nutrition Notes Initial or Follow up Reassessment Current Diagnosis Acute Kidney Injury,Diabetes, Sepsis,Hypertension, Respiratory Failure, Hyperlipidemia Other Pertinent Diagnosis on HD, COVID-19 (+), bilat pneu Current Diet TF - Nepro at 36 ml/hr Labs/Tests 02/09/2021 Na 135 BUN 54 Cr 6.6 BG 163 Pertinent Medications NaHCO3 150 mEq in D at 100 ml/ hr Height 5 ft 8 in Weight 147.6 kg [place] Body Weight (kg) 70.00 BMI 49.4 Weight change and time frame wt increase likely r/t to HD need Weight Status Morbidly Obese Subjective/Other Information F/U for proning, propofol, vent status, and HD. Last HD was on 02/07/2021. Pt has not received propofol today but per pt may recieve propofol in near future. Per RN pt is tolerating TF well. TF running at goal of 36 ml/hr. Will adjust flush d/t hyponatremia. . EUGENIO Null aware of change. Percent of energy/protein needs met: 88%/61% Burn Absent Trauma Absent GI Symptoms None Difficulty In Swallowing Skin Integrity/Comment Intact Current % PO Negligible Minimum of two criteria No physical signs of malnutrition #1 Nutrition Diagnosis Inadequate oral intake Diagnosis Progress(for reassessment Continues documentation) Is patient on ventilator? Yes Is Patient Ambulatory and/or Out of Bed No REE-([facility]-confined to bed) 2704.776 Kcal/Kg value to use for calculation 12 Approximate Energy Requirements Using 1771 kcal/Kg Calculation Used for Recommendations Kcal/kg Additional Notes Pro needs >1.2g/kg adjBW: > 115g/day for HD needs Fluid needs per MD Nutrition Intervention Change Diet Order: Resume Nepro at 36 ml, decrease flush to 200 ml q4h for hyponatremia Nutrition Support: If running continuous feed x 24 hrs without proning: Nepro at 36 ml/hr with a free water flush 200 ml q4h. If in prone position x 12/hr day: While in prone position: Nepro at 20 ml/hr with free water flush of 100 ml q4h or per MD order. While in supine position: Nepro at 65 ml/hr with a free water flush of 200 ml q4h or per MD order. Kcal 1,555 Protein (gm) 70 Fluid (mL) 628 Goal #1 TF tolerance Goal #2 TF to meet at least 75% energy and pro needs Anticipated Discharge Needs: unable to determine at this time Follow-Up By: 02/13/21 Additional Comments F/U for TF tolerance, vent status, propofol <[place] HOANG R - Last Filed: 02/12/21 23:05> Assessment and Plan Assessment and plan: I saw and evaluated the patient. I agree with the findings and the plan of care as documented in the Nurse Practitioner's~note. Hospitalist Physical - Constitutional Vitals: Temp Pulse Resp BP Pulse Ox 98.4 F 86 34 H 97/54 99 02/12/21 20:00 02/12/21 22:00 02/12/21 22:00 02/12/21 22:00 02/12/21 22:00 Results - Labs CBC & Chem 7: 02/12/21 06:35 02/12/21 06:35 Labs: Laboratory Last Values WBC 10.1 K/mm3 (4.5-11.0) 02/12/21 06:35 RBC 2.21 M/mm3 (3.65-5.03) L 02/12/21 06:35 Hgb 7.2 gm/dl (11.8-15.2) L 02/12/21 06:35 Hct 20.7 % (35.5-45.6) L 02/12/21 06:35 MCV 94 fl (84-94) 02/12/21 06:35 MCH 33 pg (28-32) H 02/12/21 06:35 MCHC 35 % (32-34) H 02/12/21 06:35 RDW 14.5 % (13.2-15.2) 02/12/21 06:35 Plt Count 234 K/mm3 (140-440) 02/12/21 06:35 Lymph % (Auto) 8.7 % (13.4-35.0) L 02/11/21 04:30 [place] % (Auto) 3.8 % (0.0-7.3) 02/11/21 04:30 Eos % (Auto) 0.9 % (0.0-4.3) 02/11/21 04:30 Baso % (Auto) 1.0 % (0.0-1.8) 02/11/21 04:30 Lymph # (Auto) 0.9 K/mm3 (1.2-5.4) L 02/11/21 04:30 [place] # (Auto) 0.4 K/mm3 (0.0-0.8) 02/11/21 04:30 Eos # (Auto) 0.1 K/mm3 (0.0-0.4) 02/11/21 04:30 Baso # (Auto) 0.0 K/mm3 (0.0-0.1) 02/11/21 04:30 Add Manual Diff Complete 02/09/21 05:10 Total Counted 100 02/09/21 05:10 Seg Neutrophils % 85.5 % (40.0-70.0) H 02/11/21 04:30 Seg Neuts % (Manual) 82.0 % (40.0-70.0) H 02/09/21 05:10 Band Neutrophils % 4.0 % 02/09/21 05:10 Lymphocytes % (Manual) 9.0 % (13.4-35.0) L 02/09/21 05:10 Reactive Lymphs % (Man) 1.0 % 01/27/21 05:29 Monocytes % (Manual) 2.0 % (0.0-7.3) 02/09/21 05:10 Eosinophils % (Manual) 1.0 % (0.0-4.3) 02/09/21 05:10 Basophils % (Manual) 1.0 % (0.0-1.8) 02/06/21 Unknown Metamyelocytes % 2.0 % 02/09/21 05:10 Nucleated RBC % 1.0 % (0.0-0.9) H 02/09/21 05:10 Seg Neutrophils # 9.2 K/mm3 (1.8-7.7) H 02/11/21 04:30 Seg Neutrophils # Man 8.9 K/mm3 (1.8-7.7) H 02/09/21 05:10 Band Neutrophils # 0.4 K/mm3 02/09/21 05:10 Lymphocytes # (Manual) 1.0 K/mm3 (1.2-5.4) L 02/09/21 05:10 Abs React Lymphs (Man) 0.0 K/mm3 02/09/21 05:10 Monocytes # (Manual) 0.2 K/mm3 (0.0-0.8) 02/09/21 05:10 Eosinophils # (Manual) 0.1 K/mm3 (0.0-0.4) 02/09/21 05:10 Basophils # (Manual) 0.0 K/mm3 (0.0-0.1) 02/09/21 05:10 Metamyelocytes # 0.2 K/mm3 02/09/21 05:10 Myelocytes # 0.0 K/mm3 02/09/21 05:10 Promyelocytes # 0.0 K/mm3 02/09/21 05:10 Blast Cells # 0.0 K/mm3 02/09/21 05:10 WBC Morphology Not Reportable 02/09/21 05:10 Hypersegmented Neuts Not Reportable 02/09/21 05:10 Hyposegmented Neuts Not Reportable 02/09/21 05:10 Hypogranular Neuts Not Reportable 02/09/21 05:10 Smudge Cells Not Reportable 02/09/21 05:10 Toxic Granulation Not Reportable 02/09/21 05:10 Toxic Vacuolation Not Reportable 02/09/21 05:10 Dohle Bodies Not Reportable 02/09/21 05:10 Pelger-Huet Anomaly Not Reportable 02/09/21 05:10 Fátima Rods Not Reportable 02/09/21 05:10 Platelet Estimate Consistent w auto 02/09/21 05:10 Clumped Platelets Not Reportable 02/09/21 05:10 Plt Clumps, EDTA Not Reportable 02/09/21 05:10 Large Platelets Few 02/09/21 05:10 Giant Platelets Not Reportable 02/09/21 05:10 Platelet Satelliting Not Reportable 02/09/21 05:10 Plt Morphology Comment Not Reportable 02/09/21 05:10 RBC Morphology Not Reportable 02/09/21 05:10 Dimorphic RBCs Not Reportable 02/09/21 05:10 Polychromasia Few 02/09/21 05:10 Hypochromasia Not Reportable 02/09/21 05:10 Poikilocytosis Not Reportable 02/09/21 05:10 Anisocytosis 1+ 02/09/21 05:10 Microcytosis Not Reportable 02/09/21 05:10 Macrocytosis Not Reportable 02/09/21 05:10 Spherocytes Not Reportable 02/09/21 05:10 Pappenheimer Bodies Not Reportable 02/09/21 05:10 Sickle Cells Not Reportable 02/09/21 05:10 Target Cells Not Reportable 02/09/21 05:10 Tear Drop Cells Not Reportable 02/09/21 05:10 Ovalocytes Not Reportable 02/09/21 05:10 Helmet Cells Not Reportable 02/09/21 05:10 [place] Bodies Not Reportable 02/09/21 05:10 [place] Rings Not Reportable 02/09/21 05:10 [place] Cells Not Reportable 02/09/21 05:10 Bite Cells Not Reportable 02/09/21 05:10 Crenated Cell Not Reportable 02/09/21 05:10 Elliptocytes Not Reportable 02/09/21 05:10 Acanthocytes (Spur) Not Reportable 02/09/21 05:10 Rouleaux Not Reportable 02/09/21 05:10 Hemoglobin C Crystals Not Reportable 02/09/21 05:10 Schistocytes Not Reportable 02/09/21 05:10 Malaria parasites Not Reportable 02/09/21 05:10 [place] Bodies Not Reportable 02/09/21 05:10 Hem Pathologist Commnt No 02/09/21 05:10 PT 14.9 Sec. (12.2-14.9) 02/11/21 08:27 INR 1.17 (0.87-1.13) H 02/11/21 08:27 D-Dimer 1930.92 ng/mlDDU (0-234) H 02/11/21 08:27 ABG pH 7.421 pH Units (7.350-7.450) 02/12/21 04:41 POC ABG pCO2 72.2 mmHg (32.0-48.0) H 02/11/21 04:05 ABG pCO2 51.2 mm Hg 02/12/21 04:41 POC ABG pO2 72.3 mmHg (83-108) L 02/11/21 04:05 ABG pO2 69.0 mm Hg (80.0-90.0) L 02/12/21 04:41 POC ABG HCO3 35.3 02/11/21 04:05 ABG HCO3 32.5 mmol/L (20.0-26.0) H 02/12/21 04:41 ABG O2 Saturation 97.6 % (95.0-99.0) 02/12/21 04:41 ABG O2 Content 4.3 (0.0-44) 02/12/21 04:41 POC ABG Base Excess 7.7 02/11/21 04:05 ABG Base Excess 7.7 mmol/L (-2.0-3.0) H 02/12/21 04:41 ABG Hemoglobin 5.1 gm/dl (14.0-18.0) L 02/12/21 04:41 ABG Oxyhemoglobin 92.2 (94-98) L 02/09/21 03:21 ABG Carboxyhemoglobin 2.4 % (0.0-5.0) 02/12/21 04:41 ABG Methemoglobin 0.6 % (0.0-1.5) 02/12/21 04:41 ABG Sodium 132.3 mmol/L (136.0-145.0) L 02/11/21 04:05 ABG Potassium 3.2 mmol/L (3.40-4.50) L 02/11/21 04:05 ABG Chloride 91.0 mmol/L (98-107) L 02/11/21 04:05 ABG Glucose 197 mg/dL (65-95) H 02/11/21 04:05 Oxyhemoglobin 94.7 % (95.0-99.0) L 02/12/21 04:41 Carboxyhemoglobin 1.5 (0.5-1.5) 02/09/21 03:21 FiO2 75 % 02/12/21 04:41 FiO2 % 80 02/11/21 04:05 Sodium 135 mmol/L (137-145) L 02/12/21 06:35 Potassium 3.4 mmol/L (3.6-5.0) L 02/12/21 06:35 Chloride 91.8 mmol/L (98-107) L 02/12/21 06:35 Carbon Dioxide 36 mmol/L (22-30) H 02/12/21 06:35 Anion Gap 11 mmol/L 02/12/21 06:35 BUN 57 mg/dL (9-20) H 02/12/21 06:35 Creatinine 6.8 mg/dL (0.8-1.3) H 02/12/21 06:35 Estimated GFR 10 ml/min 02/12/21 06:35 BUN/Creatinine Ratio 8 % 02/12/21 06:35 Glucose 163 mg/dL (75-100) H 02/12/21 06:35 POC Glucose 165 mg/dL (70-105) H 02/12/21 17:19 Hemoglobin A1c 6.3 % (4-6) H 02/02/21 16:00 Lactic Acid 1.90 mmol/L (0.7-2.0) 01/24/21 14:38 Calcium 7.0 mg/dL (8.4-10.2) L 02/12/21 06:35 Phosphorus 3.60 mg/dL (2.5-4.5) D 02/08/21 06:00 Magnesium 1.60 mg/dL (1.7-2.3) L 02/12/21 08:40 Ferritin 1253.0 ng/mL (30.0-300.0) H 02/11/21 09:00 Total Bilirubin 1.50 mg/dL (0.1-1.2) H 01/26/21 05:47 AST 37 units/L (5-40) 01/26/21 05:47 ALT 29 units/L (7-56) 01/26/21 05:47 Alkaline Phosphatase 70 units/L (35-129) 01/26/21 05:47 Lactate Dehydrogenase 649 units/L (91-180) H 02/11/21 09:00 C-Reactive Protein 12.60 mg/dL (0.00-1.30) H 02/11/21 09:00 Total Protein 7.2 g/dL (6.3-8.2) 01/26/21 05:47 Albumin 2.2 g/dL (3.9-5) L 01/26/21 05:47 Albumin/Globulin Ratio 0.4 % 01/26/21 05:47 Triglycerides 182 mg/dL (2-149) H 02/12/21 10:45 Procalcitonin 0.92 ng/mL (<0.15) 01/22/21 22:57 Arterial Blood Glucose 197 mg/dL (65-95) H 02/11/21 04:05 Arterial Blood Ionized Calcium 3.3 mg/dL (4.6-5.3) L 02/11/21 04:05 Urine Color Nehal (Yellow) 01/22/21 22:39 Urine Turbidity Cloudy (Clear) 01/22/21 22:39 Urine pH 5.0 (5.0-7.0) 01/22/21 22:39 Ur Specific [place] 1.017 (1.003-1.030) 01/22/21 22:39 Urine Protein 100 mg/dl mg/dL (Negative) 01/22/21 22:39 Urine Glucose (UA) Neg mg/dL (Negative) 01/22/21 22:39 Urine Ketones Neg mg/dL (Negative) 01/22/21 22:39 Urine Blood Mod (Negative) 01/22/21 22:39 Urine Nitrite Neg (Negative) 01/22/21 22:39 Urine Bilirubin Neg (Negative) 01/22/21 22:39 Urine Urobilinogen 2.0 mg/dL (<2.0) 01/22/21 22:39 Ur Leukocyte Esterase Mod (Negative) 01/22/21 22:39 Urine WBC (Auto) < 1.0 /HPF (0.0-6.0) 01/22/21 22:39 Urine RBC (Auto) < 1.0 /HPF (0.0-6.0) 01/22/21 22:39 U Epithel Cells (Auto) < 1.0 /HPF (0-13.0) 01/22/21 22:39 Urine Osmolality 416 Mosm/kg 01/30/21 12:15 Urine Total Volume 2300 ml 01/30/21 12:00 Urine Creatinine 53.0 mg/dL (0.1-20.0) H 01/30/21 12:00 Ur Creatinine 24 Hour 1.2 (0.8-2.8) 01/30/21 12:00 Urine Sodium 28 mmol/L 01/22/21 22:39 Nasal Screen MRSA (PCR) Negative (Negative) 02/02/21 13:20 Random Vancomycin 13.7 ug/mL (0-40.0) 02/07/21 10:40 Coronavirus (PCR) Positive (Negative) A 01/23/21 08:41 Hepatitis A IgM Ab Non-reactive (NonReactive) 02/03/21 Unknown Hep Bs Antigen Non-reactive (Negative) 02/03/21 Unknown Hep B Core IgM Ab Non-reactive (NonReactive) 02/03/21 Unknown Hepatitis C Antibody Non-reactive (NonReactive) 02/03/21 Unknown Blood Type B POSITIVE 02/09/21 13:40 Antibody Screen Negative 02/09/21 13:40 Crossmatch See Detail 02/09/21 13:40 Microbiology: Microbiology 02/08/21 15:12 Peripheral/Venous Blood Culture - Preliminary NO GROWTH AFTER 4 DAYS 02/08/21 15:12 Peripheral/Venous Blood Culture - Preliminary NO GROWTH AFTER 4 DAYS Black/IV: Voiding Method Indwelling Catheter Active Medications - Current Medications Current Medications: Generic Name Dose Route Start Last Admin Trade Name Freq PRN Reason Stop Dose Admin Acetaminophen 650 mg 01/23/21 02:25 02/11/21 18:20 Acetaminophen 650 Mg Rect Supp [place] 650 mg Q4H PRN Administration Pain, Mild (1-3) Acetaminophen 650 mg 01/24/21 12:58 02/11/21 04:09 Acetaminophen 325 Mg/10.15 Ml Oral Liqd Unit Dose FEEDTUBE 650 mg Q6H PRN Administration Pain, Mild (1-3) Lipase/Protease/Amylase 1 each 01/26/21 14:25 Lipase 10,500/Protease 25,000/Amylase 43,750 (Units) Dr Cap FEEDTUBE PRN PRN For Clogged Feeding Tube Dextrose 50 ml 01/27/21 07:24 Dextrose 50% In Water (25gm) 50 Ml Syringe IV Q30MIN PRN Hypoglycemia Protocol Enoxaparin Sodium 120 mg 01/26/21 11:00 02/12/21 09:25 Enoxaparin 120 Mg/0.8 Ml Inj SUB-Q 120 mg Q24HR CECE Administration Famotidine 20 mg 02/10/21 10:00 02/12/21 09:25 Famotidine 20 Mg Tab PO 20 mg DAILY CECE Administration Fentanyl 50 mcg 01/22/21 22:39 02/10/21 13:46 Fentanyl 100 Mcg/2 Ml Inj IV 50 mcg Q10MIN PRN Administration ANALGESIA Heparin Sodium (Porcine) 2,000 unit 02/11/21 09:38 Heparin 10,000 Units/10 Ml Vial IV SAGRARIO PRN hemodialysis Hydrophilic Ointment 1 applic 01/22/21 22:39 Lip Therapy Vaseline TP Q2HR PRN Dry Lips Fentanyl Citrate 2,000 mcg in 100 mls @ 6.124 mls/hr 01/22/21 23:00 02/12/21 21:00 Fentanyl Drip Premix IV 4 mcg/kg/hr TITR CECE 24.494 mls/hr Administration Protocol 1 MCG/KG/HR Propofol 1,000 mg in 100 mls @ 3.674 mls/hr 01/22/21 23:45 02/06/21 18:37 Diprivan 10 Mg/Ml IV 0 mcg/kg/min TITR CECE 0 mls/hr Titration Protocol 5 MCG/KG/MIN Norepinephrine 4 mg in 250 mls @ 7.5 mls/hr 01/28/21 14:00 02/08/21 06:08 Levophed Drip 4 Mg/Ns 250 Ml IV 0 mcg/min TITR CECE 0 mls/hr Titration Protocol 2 MCG/MIN Dexmedetomidine HCl 1,000 mcg/ 260 mls @ 6.368 mls/hr 01/30/21 20:00 02/12/21 21:01 Sodium Chloride IV 1.4 mcg/kg/hr TITRATE CECE 44.579 mls/hr Administration Protocol 0.2 MCG/KG/HR Sodium Bicarbonate 150 meq/ 1,150 mls @ 100 mls/hr 02/06/21 11:30 02/12/21 21:01 Dextrose IV 100 mls/hr DIRECT CECE Administration Lorazepam 100 mg/ Sodium 100 mls @ 1 mls/hr 02/06/21 19:00 02/12/21 21:01 Chloride/ Miscellaneous IV 1 mg/hr Information TITR CECE 1 mls/hr Administration Protocol 1 MG/HR Sodium Chloride 100 mls @ 999 mls/hr 02/11/21 09:38 Nacl 0.9% IV SAGRARIO PRN Hypotension Multi-Ingred Cream/Lotion/Oil/Oint 1 applic 01/22/21 22:39 02/01/21 09:33 Mineral Oil/Petrolatum, White Ophth Oint 3.5 Gm OU 1 applic Q4HR PRN Administration Dry Eye(s) Ondansetron HCl 4 mg 01/23/21 02:17 Ondansetron 4 Mg/2 Ml Inj IV Q8H PRN Nausea And Vomiting Simple Syrup 15 ml 01/26/21 14:25 Simple Syrup 15 Ml FEEDTUBE PRN PRN Hypoglycemia Simple Syrup 30 ml 01/26/21 14:25 Simple Syrup 15 Ml FEEDTUBE PRN PRN Hypoglycemia Sodium Bicarbonate 325 mg 01/26/21 14:25 Sodium Bicarbonate 325 Mg Tab FEEDTUBE PRN PRN For Clogged Feeding Tube Nutrition/Malnutrition Assess - Dietary Evaluation Nutrition/Malnutrition Findings: Nutrition Notes Start: 01/26/21 13:59 Freq: Status: Active Protocol: Document 02/10/21 13:44 CW (Rec: 02/10/21 13:57 CW [id number]) Nutrition Notes Initial or Follow up Reassessment Current Diagnosis Acute Kidney Injury,Diabetes, Sepsis,Hypertension, Respiratory Failure, Hyperlipidemia Other Pertinent Diagnosis on HD, COVID-19 (+), bilat pneu Current Diet TF - Nepro at 36 ml/hr Labs/Tests 02/09/2021 Na 135 BUN 54 Cr 6.6 BG 163 Pertinent Medications NaHCO3 150 mEq in D at 100 ml/ hr Height 5 ft 8 in Weight 147.6 kg [place] Body Weight (kg) 70.00 BMI 49.4 Weight change and time frame wt increase likely r/t to HD need Weight Status Morbidly Obese Subjective/Other Information F/U for proning, propofol, vent status, and HD. Last HD was on 02/07/2021. Pt has not received propofol today but per MD pt may recieve propofol in near future. Per RN pt is tolerating TF well. TF running at goal of 36 ml/hr. Will adjust flush d/t hyponatremia. . EUGENIO Null aware of change. Percent of energy/protein needs met: 88%/61% Burn Absent Trauma Absent GI Symptoms None Difficulty In Swallowing Skin Integrity/Comment Intact Current % PO Negligible Minimum of two criteria No physical signs of malnutrition #1 Nutrition Diagnosis Inadequate oral intake Diagnosis Progress(for reassessment Continues documentation) Is patient on ventilator? Yes Is Patient Ambulatory and/or Out of Bed No REE-([facility]-confined to bed) 2704.776 Kcal/Kg value to use for calculation 12 Approximate Energy Requirements Using 1771 kcal/Kg Calculation Used for Recommendations Kcal/kg Additional Notes Pro needs >1.2g/kg adjBW: > 115g/day for HD needs Fluid needs per MD Nutrition Intervention Change Diet Order: Resume Nepro at 36 ml, decrease flush to 200 ml q4h for hyponatremia Nutrition Support: If running continuous feed x 24 hrs without proning: Nepro at 36 ml/hr with a free water flush 200 ml q4h. If in prone position x 12/hr day: While in prone position: Nepro at 20 ml/hr with free water flush of 100 ml q4h or per MD order. While in supine position: Nepro at 65 ml/hr with a free water flush of 200 ml q4h or per MD order. Kcal 1,555 Protein (gm) 70 Fluid (mL) 628 Goal #1 TF tolerance Goal #2 TF to meet at least 75% energy and pro needs Anticipated Discharge Needs: unable to determine at this time Follow-Up By: 02/13/21 Additional Comments F/U for TF tolerance, vent status, propofol
[2021-02-12] MEDS: LORazepam 100 MG in SODIUM CHLORIDE 0.9% 50 ML, EMPTY BAG 0 ML IV SCH (21:01)
[2021-02-13] MEDS: fentaNYL DRIP Premix 2,000 MCG/100 ML BAG IV SCH ×6 (00:53→22:24)
[2021-02-13] MEDS: dexmedeTOMIDine 1,000 MCG in SODIUM CHLORIDE 0.9% 250ML 250 ML IV SCH ×4 (02:38→20:15)
[2021-02-13 07:45] LABS: Hematocrit 20.8 % (35.5-45.6); Mean Corpuscular HGB Conc 34 % (32-34); Mean Corpuscular Volume 95 fl (84-94); Platelet Count 235 K/mm3 (140-440); Red Blood Count 2.19 M/mm3 (3.65-5.03); Red Cell Distribution Width 14.9 % (13.2-15.2)
[2021-02-13] MEDS: SODIUM BICARBONATE 150 MEQ in DEXTROSE 5% IN WATER 1,000 ML IV SCH (07:53)
[2021-02-13 08:06] LABS: Calcium 7.9 mg/dL (8.4-10.2)
[2021-02-13] MEDS ORDERED: MAGNESIUM SULFATE 2 GM/50 ML BAG IV ONE (09:00)
[2021-02-13] MEDS: ENOXAPARIN 120 MG/0.8 ML INJ SUB-Q SCH (09:27)
[2021-02-13] MEDS: FAMOTIDINE 20 MG TAB PO SCH (09:27)
[2021-02-13] MEDS ORDERED: POTASSIUM CHLORIDE 20 MEQ PACKET FEEDTUBE ONE (10:00)
[2021-02-13] MEDS: EPOETIN ALFA-EPBX 20,000 UNIT/1 ML VIAL IV PRN (11:27)
--- NOTE | 2021-02-13 11:37 | Progress Note ---
Assessment and Plan 60 y/o male with ARDS secondary most likely to COVID 19 pneumonia. 02/13/21: HD again now. Replace electrolytes per renal. Continue abx therapy per ID. Will get RT to wean FiO2 as not done on yesterday. Will restart diprovan post HD and stop ativan. Check Levels (Triglycerides on Tue or Tuesday). Can stop bicarb drip however must make sure that ABG is checked daily to make sure that pH is good. Very very guarded prognosis. 02/12/21: HD again today. Had a 12 second run of VTACH today as well. Stable. K is low, checking mag levels. Will alert Renal so they can adjust bath as needed. Post HD will start to wean FiO2 again. Unable to prone as patient does not tolerate. Repeat blood cultures negative and first set only showing Coag Negative Staph. Prognosis still remains very very guarded to poor. Will consider restarting Diprovan tomorrow. Patient now intubated for 20 days now but not candidate for trach yet given elevated PEEP and FiO2 levels but did discuss on rounds. 02/11/21: Vascath placed today for HD. Orders already in. Wean FiO2 for sats >88%. Abx per ID. Repeat cultures so far negative. Given persistent fevers, will check upper ext dopplers. Prognosis still remains guarded. 02/10/21: Triglycerides improved but current sedation is adequate so will hold on stopping ativan to add propofol back. Awaiting Labs from this morning. Plan to replace HD catheter tomorrow morning as early as possible. Fever curve is trending down. Continue bicarb drip for now. Prognosis remains guarded. WIll speak with family tomorrow to update. 02/09/21: Repeat Triglycerides today. Follow up repeat blood cultures. Given continued fever will hold on replacing vascath today. If fever free the next 24 hours, can place in the morning or Tuesday morning. Will likely need blood with next HD session. Continue bicarb drip to help manage respiratory as well as metabolic acidosis. Wean FiO2 for sats >88% and PaO2 >55. Overall prognosis remains guarded to poor. 02/08/21: Picc out today. Will repeat culture if patient spikes again today. Plan to replace HD catheter either late tomorrow or Tuesday morning. Continue current level of sedation. Abx therapy per ID. Wean FiO2 as tolerated, doubt will be able to do much until we can resume HD. Guarded prognosis. Replaced potassium. Will need to check in the morning. Will repeat K later this afternoon. 02/07/21: Biggest issue now is that patient's numbers are better with HD but now with bacteremia, concern for line infection. ID is correct in requesting line holiday. Has a picc and an Right IJ Dialysis catheter with 3 ports. Currently getting HD today. Have not seen renal yet. Will pull right IJ line post HD and plan to replace it Tuesday evening or Tuesday. Continue bicarb drip for now and will keep picc as patient has been requiring levophed. If able to be weaned off levophed, will remove picc either tomorrow or Tuesday. Continue Ativan, Precedex and Fent drips, repeat Triglycerides on Tuesday. Very very guarded prognosis. Will remove Black today as well. 02/06/21: Will add bicarb drip at 125/hr. Giving 2 amps of NaHCO3 push now. Will repeat ABG this afternoon, may just ask for Art Line if possible. HD today per renal and I spoke with them about the bicarb drip. Long discussion with Sister, Significant and other and another family member on the phone on yesterday. I tried my best to explain the severity of the clinical state but not sure if they fully understood. The patient is very very ill and history suggests that his outcome will be poor (intubated with covid and renal failure o n dialysis). This was expressed with the family. Will continue all supportive measures. Checking triglyceride levels today. 02/05/21: WIll increase PEEP to 16. Can increase pressors if needed for BP control during HD. Follow up cultures. If negative will scan legs and arms again for VTE. Repeat ABG at 1400 today. Will speak with sister and Girlfriend on phone today. 02/04/21: HD again today per renal notes. Likely will need daily HD. New fevers. Will draw blood and urine cultures if able to still make urine.. Repeat CXR. May need to check dopplers if all of those studies are negative. Wean FIO2 as tolerated. Unable to tolerate proning. Guarded to poor prognosis. 02/03/21: HD today per renal. Wean FiO2 as tolerated. No further proning as patient cannot tolerate it, however with volume removal, may consider in the future. Use pressors to keep MAPs 65 and greater for HD purporses so volume can be removed. (IJ was wide open (filled with blood)) with patient sitting up at 45 degrees. Guarded prognosis. 02/02/21: After renal speaks with family, will place vascath today. Agree with bicarb drip but will order some pushes now to help with pH. Overall prognosis is very very guarded to poor now that patient is COVID positive and requiring renal replacement therapy. Mortality is very high in these patients. Continue steroid therapy. Unable to tolerate proning. 01/30/21: Will plan for proning later today. Goal will be at least 12hrs but long is okay. Speaking with pharmacy to see if we can get paralytic for a longer period of time. Regardless will prone. Continue heavy sedation. BP stable. Continue steroids. Very very guarded prognosis. 01/29/21: will increase tidal volume and/or increase respiratory rate. Repeat ABG this afternoon. Continue paralytic and adequate sedation. Continue steroid and remdesivir, follow up any renal recs. Prognosis remains guarded. Wean Fio2 for sats >88% 01/28/21: Increased PEEP to 16. Will paralyze patient today and increase sedation. Ordering picc line for possible vasopressor therapy needs. Continue BID steroids. Renal function is slightly better today with fluids but could be making oxygenation worse. Not able to diurese. Still making urine. Continue Remdesivir. Watch for fever curve. If not improvement in the next 24 hours with paralyzing, will prone tomorrow morning. 01/27/21: Continue PEEP at 14. No weaning until FiO2 is at or below 40-45%. Continue anticoagulation. Getting Remdesivir now. Continue BID steroids. Renal has increased the fluids. Monitor urine output and renal function. Overall prognosis is very very guarded, especially if renal status worsens. 01/26/21: Increase PEEP to 14. Will add Precedex therapy. If patient does not respond to increases in PEEP may need to prone. Will place patient on lovenox and will feed patient. Remdesivir coming. Continue BID steroids. Prognosis is guarded. 01/25/21: Hold on proning today. Continue BID steroids. ABG this AM was adequate. Pending abg tomorrow, may increase PEEP if not able to wean FiO2 any further. Per charting Remdesivir to arrive tomorrow. Guarded prognosis. 01/24/21: Continue BID steroids. No abg done this am but able to wean FiO2. Will obtain ABG in the am. Hold on proning for right now. Renal following, would like to diurese but they are given fluids for deisi. Agree with ID assessment and note. Guarded prognosis. 1. Increase steroids to BID given size 2. Check with ID to see if he is a candidate for remdesivir or any other experiemental therapy 3. Hold on proning for right now 4. Renal consulted and giving IVF's currently Guarded prognosis. CCT 31 minutes. Subjective Date of service: 02/13/21 Principal diagnosis: DEISI Interval history: No acute events. Hypertensive on HD now. Sedated. pH is 7.3 and PaO2 is better today. Objective Vital Signs - 12hr 02/12/21 02/12/21 02/12/21 23:45 23:46 23:49 Temperature 98.3 F Pulse Rate 91 H 86 Pulse Rate [ From Monitor] Respiratory 34 H Rate Blood Pressure 119/68 98/56 O2 Sat by Pulse 98 98 Oximetry O2 Sat by Pulse Oximetry [ Anterior Bilateral Throughout] 02/13/21 02/13/21 02/13/21 00:00 00:15 00:30 Temperature Pulse Rate 90 89 88 Pulse Rate [ 89 From Monitor] Respiratory 34 H 34 H 34 H Rate Blood Pressure 110/62 108/59 104/56 O2 Sat by Pulse 99 97 97 Oximetry O2 Sat by Pulse Oximetry [ Anterior Bilateral Throughout] 02/13/21 02/13/21 02/13/21 00:45 01:00 01:15 Temperature Pulse Rate 87 87 88 Pulse Rate [ From Monitor] Respiratory 34 H 34 H 34 H Rate Blood Pressure 99/56 102/57 104/57 O2 Sat by Pulse 96 97 97 Oximetry O2 Sat by Pulse Oximetry [ Anterior Bilateral Throughout] 02/13/21 02/13/21 02/13/21 01:30 01:45 02:00 Temperature Pulse Rate 88 89 94 H Pulse Rate [ From Monitor] Respiratory 34 H 34 H 34 H Rate Blood Pressure 108/60 107/60 115/60 O2 Sat by Pulse 97 97 96 Oximetry O2 Sat by Pulse Oximetry [ Anterior Bilateral Throughout] 02/13/21 02/13/21 02/13/21 02:15 02:30 02:45 Temperature Pulse Rate 94 H 95 H 93 H Pulse Rate [ From Monitor] Respiratory 34 H 34 H 34 H Rate Blood Pressure 108/59 111/58 107/57 O2 Sat by Pulse 97 96 96 Oximetry O2 Sat by Pulse Oximetry [ Anterior Bilateral Throughout] 02/13/21 02/13/21 02/13/21 03:00 03:15 03:30 Temperature Pulse Rate 92 H 89 86 Pulse Rate [ From Monitor] Respiratory 35 H 34 H 34 H Rate Blood Pressure 108/59 102/57 103/56 O2 Sat by Pulse 96 95 97 Oximetry O2 Sat by Pulse Oximetry [ Anterior Bilateral Throughout] 02/13/21 02/13/21 02/13/21 03:45 04:00 04:15 Temperature 100.0 F H Pulse Rate 83 81 80 Pulse Rate [ From Monitor] Respiratory 34 H 34 H 34 H Rate Blood Pressure 108/54 103/56 102/56 O2 Sat by Pulse 97 97 97 Oximetry O2 Sat by Pulse Oximetry [ Anterior Bilateral Throughout] 02/13/21 02/13/21 02/13/21 04:30 04:45 05:00 Temperature Pulse Rate 79 80 80 Pulse Rate [ From Monitor] Respiratory 34 H 34 H 34 H Rate Blood Pressure 102/55 100/56 101/55 O2 Sat by Pulse 96 97 97 Oximetry O2 Sat by Pulse Oximetry [ Anterior Bilateral Throughout] 02/13/21 02/13/21 02/13/21 05:06 05:15 05:30 Temperature Pulse Rate 82 79 79 Pulse Rate [ From Monitor] Respiratory 34 H 34 H Rate Blood Pressure 108/54 98/57 100/56 O2 Sat by Pulse 98 98 98 Oximetry O2 Sat by Pulse Oximetry [ Anterior Bilateral Throughout] 02/13/21 02/13/21 02/13/21 05:45 06:00 06:15 Temperature Pulse Rate 79 78 79 Pulse Rate [ From Monitor] Respiratory 34 H 34 H 34 H Rate Blood Pressure 100/56 100/56 98/56 O2 Sat by Pulse 98 98 98 Oximetry O2 Sat by Pulse Oximetry [ Anterior Bilateral Throughout] 02/13/21 02/13/21 02/13/21 06:30 06:45 07:00 Temperature Pulse Rate 78 79 79 Pulse Rate [ From Monitor] Respiratory 34 H 34 H 34 H Rate Blood Pressure 97/57 97/58 98/58 O2 Sat by Pulse 98 98 97 Oximetry O2 Sat by Pulse Oximetry [ Anterior Bilateral Throughout] 02/13/21 02/13/21 02/13/21 07:15 07:30 07:45 Temperature Pulse Rate 79 79 79 Pulse Rate [ From Monitor] Respiratory 34 H 34 H 34 H Rate Blood Pressure 98/57 99/56 98/54 O2 Sat by Pulse 98 97 97 Oximetry O2 Sat by Pulse Oximetry [ Anterior Bilateral Throughout] 02/13/21 02/13/21 02/13/21 07:49 08:00 08:15 Temperature 98.5 F 98.5 F Pulse Rate 79 78 Pulse Rate [ 79 From Monitor] Respiratory 34 H 34 H Rate Blood Pressure 96/56 95/55 O2 Sat by Pulse 97 97 Oximetry O2 Sat by Pulse Oximetry [ Anterior Bilateral Throughout] 02/13/21 02/13/21 02/13/21 08:30 08:45 09:00 Temperature 100.0 F H Pulse Rate 79 79 82 Pulse Rate [ From Monitor] Respiratory 34 H 34 H 33 H Rate Blood Pressure 96/56 96/56 93/60 O2 Sat by Pulse 97 97 95 Oximetry O2 Sat by Pulse 97 Oximetry [ Anterior Bilateral Throughout] 02/13/21 02/13/21 02/13/21 09:15 09:20 09:30 Temperature Pulse Rate 87 82 92 H Pulse Rate [ From Monitor] Respiratory 35 H 30 H Rate Blood Pressure 111/66 93/60 111/66 O2 Sat by Pulse 95 96 Oximetry O2 Sat by Pulse Oximetry [ Anterior Bilateral Throughout] 02/13/21 02/13/21 02/13/21 09:45 09:46 10:00 Temperature Pulse Rate 112 H 108 H 114 H Pulse Rate [ From Monitor] Respiratory 30 H 29 H Rate Blood Pressure 189/104 190/91 206/100 O2 Sat by Pulse Oximetry O2 Sat by Pulse Oximetry [ Anterior Bilateral Throughout] 02/13/21 02/13/21 02/13/21 10:15 10:30 10:35 Temperature Pulse Rate 119 H 123 H 126 H Pulse Rate [ From Monitor] Respiratory 31 H 30 H Rate Blood Pressure 217/103 227/95 189/89 O2 Sat by Pulse 93 94 Oximetry O2 Sat by Pulse Oximetry [ Anterior Bilateral Throughout] 02/13/21 02/13/21 02/13/21 10:45 11:00 11:15 Temperature Pulse Rate 128 H 129 H 130 H Pulse Rate [ From Monitor] Respiratory 30 H 29 H 29 H Rate Blood Pressure 179/88 173/88 163/87 O2 Sat by Pulse 93 93 93 Oximetry O2 Sat by Pulse Oximetry [ Anterior Bilateral Throughout] Constitutional: comatose Eyes: non-icteric ENT: other (orally intubated and sedated) Neck: supple Effort: mildly labored Ascultation: Bilateral: clear Percussion: Bilateral: not dull Cardiovascular: regular rate and rhythm Gastrointestinal: normoactive bowel sounds CBC and BMP: 02/13/21 06:40 02/13/21 06:40 ABG, PT/INR, D-dimer: ABG ABG pH 7.374 (7.320-7.450) 02/13/21 05:00 POC ABG pCO2 60.8 mmHg (32.0-48.0) H 02/13/21 05:00 ABG pCO2 51.2 mm Hg 02/12/21 04:41 POC ABG pO2 76.4 mmHg (83-108) L 02/13/21 05:00 ABG pO2 69.0 mm Hg (80.0-90.0) L 02/12/21 04:41 POC ABG HCO3 34.7 02/13/21 05:00 ABG O2 Saturation 95.2 (0-100) 02/13/21 05:00 PT/INR, D-dimer PT 14.9 Sec. (12.2-14.9) 02/11/21 08:27 INR 1.17 (0.87-1.13) H 02/11/21 08:27 D-Dimer 1722.16 ng/mlDDU (0-234) H 02/13/21 07:38 Abnormal lab findings: Abnormal Labs 01/22/21 01/22/21 01/22/21 22:39 22:57 22:57 WBC RBC Hgb Hct MCV MCH MCHC RDW Plt Count Lymph % (Auto) 6.6 L Lymph # (Auto) 0.5 L Seg Neutrophils % 87.6 H Seg Neuts % (Manual) Lymphocytes % (Manual) Nucleated RBC % Seg Neutrophils # Seg Neutrophils # Man Lymphocytes # (Manual) Eosinophils # (Manual) INR D-Dimer ABG pH POC ABG pCO2 POC ABG pO2 ABG pO2 ABG HCO3 ABG O2 Saturation ABG Base Excess ABG Hemoglobin ABG Oxyhemoglobin ABG Sodium ABG Potassium ABG Chloride ABG Glucose Oxyhemoglobin Carboxyhemoglobin Sodium 129 L Potassium 3.4 L Chloride 90.4 L Carbon Dioxide BUN 34 H Creatinine 1.5 H Glucose 146 H POC Glucose Hemoglobin A1c Lactic Acid Calcium 7.8 L Phosphorus Magnesium Ferritin Total Bilirubin AST 75 H ALT 57 H Lactate Dehydrogenase C-Reactive Protein Albumin 2.9 L Triglycerides Arterial Blood Glucose Arterial Blood Ionized Calcium Urine Creatinine 301.2 H Coronavirus (PCR) Crossmatch 01/22/21 01/22/21 01/22/21 22:57 22:57 22:57 WBC RBC Hgb Hct MCV MCH MCHC RDW Plt Count Lymph % (Auto) Lymph # (Auto) Seg Neutrophils % Seg Neuts % (Manual) Lymphocytes % (Manual) Nucleated RBC % Seg Neutrophils # Seg Neutrophils # Man Lymphocytes # (Manual) Eosinophils # (Manual) INR D-Dimer 1173.89 H ABG pH POC ABG pCO2 POC ABG pO2 ABG pO2 ABG HCO3 ABG O2 Saturation ABG Base Excess ABG Hemoglobin ABG Oxyhemoglobin ABG Sodium ABG Potassium ABG Chloride ABG Glucose Oxyhemoglobin Carboxyhemoglobin Sodium Potassium Chloride Carbon Dioxide BUN Creatinine Glucose 149 H POC Glucose Hemoglobin A1c Lactic Acid 2.10 H* Calcium Phosphorus Magnesium Ferritin Total Bilirubin AST ALT Lactate Dehydrogenase 685 H C-Reactive Protein 30.40 H Albumin Triglycerides Arterial Blood Glucose Arterial Blood Ionized Calcium Urine Creatinine Coronavirus (PCR) Crossmatch 01/22/21 01/23/21 01/23/21 22:57 08:41 10:01 WBC RBC Hgb Hct MCV MCH MCHC RDW Plt Count Lymph % (Auto) Lymph # (Auto) Seg Neutrophils % Seg Neuts % (Manual) Lymphocytes % (Manual) Nucleated RBC % Seg Neutrophils # Seg Neutrophils # Man Lymphocytes # (Manual) Eosinophils # (Manual) INR D-Dimer ABG pH POC ABG pCO2 POC ABG pO2 ABG pO2 ABG HCO3 ABG O2 Saturation ABG Base Excess ABG Hemoglobin ABG Oxyhemoglobin ABG Sodium ABG Potassium ABG Chloride ABG Glucose Oxyhemoglobin Carboxyhemoglobin Sodium 131 L Potassium Chloride 88.7 L Carbon Dioxide 18 L BUN 36 H Creatinine 1.6 H Glucose 147 H POC Glucose Hemoglobin A1c Lactic Acid Calcium 7.5 L Phosphorus Magnesium Ferritin 1207.0 H Total Bilirubin AST ALT Lactate Dehydrogenase C-Reactive Protein Albumin Triglycerides Arterial Blood Glucose Arterial Blood Ionized Calcium Urine Creatinine Coronavirus (PCR) Positive A Crossmatch 01/23/21 01/23/21 01/24/21 20:49 Unknown 00:10 WBC RBC Hgb Hct MCV MCH MCHC RDW Plt Count Lymph % (Auto) Lymph # (Auto) Seg Neutrophils % Seg Neuts % (Manual) Lymphocytes % (Manual) Nucleated RBC % Seg Neutrophils # Seg Neutrophils # Man Lymphocytes # (Manual) Eosinophils # (Manual) INR D-Dimer ABG pH POC ABG pCO2 POC ABG pO2 ABG pO2 165.4 H ABG HCO3 ABG O2 Saturation ABG Base Excess -2.5 L ABG Hemoglobin ABG Oxyhemoglobin ABG Sodium ABG Potassium ABG Chloride ABG Glucose Oxyhemoglobin Carboxyhemoglobin Sodium 130 L Potassium Chloride 91.0 L Carbon Dioxide 20 L BUN 52 H Creatinine 3.8 H D Glucose 150 H POC Glucose 125 H Hemoglobin A1c Lactic Acid Calcium 8.0 L Phosphorus Magnesium Ferritin Total Bilirubin AST 42 H ALT Lactate Dehydrogenase C-Reactive Protein Albumin 2.4 L Triglycerides Arterial Blood Glucose Arterial Blood Ionized Calcium Urine Creatinine Coronavirus (PCR) Crossmatch 01/24/21 01/24/21 01/24/21 05:05 05:05 05:05 WBC 14.0 H RBC Hgb Hct MCV 95 H MCH 33 H MCHC RDW Plt Count Lymph % (Auto) Lymph # (Auto) Seg Neutrophils % Seg Neuts % (Manual) 91.0 H Lymphocytes % (Manual) 4.0 L Nucleated RBC % Seg Neutrophils # Seg Neutrophils # Man 12.7 H Lymphocytes # (Manual) 0.6 L Eosinophils # (Manual) INR D-Dimer 6159.48 H ABG pH POC ABG pCO2 POC ABG pO2 ABG pO2 ABG HCO3 ABG O2 Saturation ABG Base Excess ABG Hemoglobin ABG Oxyhemoglobin ABG Sodium ABG Potassium ABG Chloride ABG Glucose Oxyhemoglobin Carboxyhemoglobin Sodium Potassium Chloride Carbon Dioxide BUN Creatinine Glucose POC Glucose Hemoglobin A1c Lactic Acid Calcium Phosphorus Magnesium Ferritin 1178.0 H Total Bilirubin AST ALT Lactate Dehydrogenase C-Reactive Protein Albumin Triglycerides Arterial Blood Glucose Arterial Blood Ionized Calcium Urine Creatinine Coronavirus (PCR) Crossmatch 01/24/21 01/24/21 01/24/21 05:05 05:05 05:05 WBC RBC Hgb Hct MCV MCH MCHC RDW Plt Count Lymph % (Auto) Lymph # (Auto) Seg Neutrophils % Seg Neuts % (Manual) Lymphocytes % (Manual) Nucleated RBC % Seg Neutrophils # Seg Neutrophils # Man Lymphocytes # (Manual) Eosinophils # (Manual) INR D-Dimer ABG pH POC ABG pCO2 POC ABG pO2 ABG pO2 ABG HCO3 ABG O2 Saturation ABG Base Excess ABG Hemoglobin ABG Oxyhemoglobin ABG Sodium ABG Potassium ABG Chloride ABG Glucose Oxyhemoglobin Carboxyhemoglobin Sodium 132 L Potassium Chloride 93.1 L Carbon Dioxide 21 L BUN 57 H Creatinine 3.7 H Glucose 133 H POC Glucose Hemoglobin A1c Lactic Acid 2.20 H* Calcium 7.7 L Phosphorus Magnesium Ferritin Total Bilirubin AST ALT Lactate Dehydrogenase 658 H C-Reactive Protein 33.20 H Albumin 2.4 L Triglycerides Arterial Blood Glucose Arterial Blood Ionized Calcium Urine Creatinine Coronavirus (PCR) Crossmatch 01/24/21 01/24/21 01/24/21 05:34 06:00 17:35 WBC RBC Hgb Hct MCV MCH MCHC RDW Plt Count Lymph % (Auto) Lymph # (Auto) Seg Neutrophils % Seg Neuts % (Manual) Lymphocytes % (Manual) Nucleated RBC % Seg Neutrophils # Seg Neutrophils # Man Lymphocytes # (Manual) Eosinophils # (Manual) INR D-Dimer ABG pH POC ABG pCO2 POC ABG pO2 ABG pO2 ABG HCO3 ABG O2 Saturation ABG Base Excess ABG Hemoglobin ABG Oxyhemoglobin ABG Sodium ABG Potassium ABG Chloride ABG Glucose Oxyhemoglobin Carboxyhemoglobin Sodium Potassium Chloride Carbon Dioxide BUN Creatinine Glucose POC Glucose 136 H 137 H Hemoglobin A1c Lactic Acid Calcium Phosphorus Magnesium 2.80 H Ferritin Total Bilirubin AST ALT Lactate Dehydrogenase C-Reactive Protein Albumin Triglycerides Arterial Blood Glucose Arterial Blood Ionized Calcium Urine Creatinine Coronavirus (PCR) Crossmatch 01/25/21 01/25/21 01/25/21 04:15 05:40 05:40 WBC RBC Hgb Hct MCV 95 H MCH 33 H MCHC 35 H RDW Plt Count Lymph % (Auto) Lymph # (Auto) Seg Neutrophils % Seg Neuts % (Manual) 95.0 H Lymphocytes % (Manual) 3.0 L Nucleated RBC % Seg Neutrophils # Seg Neutrophils # Man 7.8 H Lymphocytes # (Manual) 0.2 L Eosinophils # (Manual) INR D-Dimer ABG pH POC ABG pCO2 POC ABG pO2 63.2 L ABG pO2 ABG HCO3 ABG O2 Saturation ABG Base Excess ABG Hemoglobin ABG Oxyhemoglobin 89.6 L ABG Sodium ABG Potassium ABG Chloride ABG Glucose 165 H Oxyhemoglobin Carboxyhemoglobin 0.3 L Sodium Potassium Chloride Carbon Dioxide BUN 67 H Creatinine 3.4 H Glucose 153 H POC Glucose Hemoglobin A1c Lactic Acid Calcium 7.5 L Phosphorus Magnesium Ferritin Total Bilirubin 1.40 H AST 62 H ALT Lactate Dehydrogenase C-Reactive Protein Albumin 2.6 L Triglycerides Arterial Blood Glucose 165 H Arterial Blood Ionized Calcium 4.3 L Urine Creatinine Coronavirus (PCR) Crossmatch 01/25/21 01/25/21 01/25/21 05:59 12:00 17:17 WBC RBC Hgb Hct MCV MCH MCHC RDW Plt Count Lymph % (Auto) Lymph # (Auto) Seg Neutrophils % Seg Neuts % (Manual) Lymphocytes % (Manual) Nucleated RBC % Seg Neutrophils # Seg Neutrophils # Man Lymphocytes # (Manual) Eosinophils # (Manual) INR D-Dimer ABG pH POC ABG pCO2 POC ABG pO2 ABG pO2 ABG HCO3 ABG O2 Saturation ABG Base Excess ABG Hemoglobin ABG Oxyhemoglobin ABG Sodium ABG Potassium ABG Chloride ABG Glucose Oxyhemoglobin Carboxyhemoglobin Sodium Potassium Chloride Carbon Dioxide BUN Creatinine Glucose POC Glucose 140 H 143 H 149 H Hemoglobin A1c Lactic Acid Calcium Phosphorus Magnesium Ferritin Total Bilirubin AST ALT Lactate Dehydrogenase C-Reactive Protein Albumin Triglycerides Arterial Blood Glucose Arterial Blood Ionized Calcium Urine Creatinine Coronavirus (PCR) Crossmatch 01/25/21 01/26/21 01/26/21 23:41 03:43 05:46 WBC RBC Hgb Hct MCV MCH MCHC RDW Plt Count Lymph % (Auto) Lymph # (Auto) Seg Neutrophils % Seg Neuts % (Manual) Lymphocytes % (Manual) Nucleated RBC % Seg Neutrophils # Seg Neutrophils # Man Lymphocytes # (Manual) Eosinophils # (Manual) INR D-Dimer ABG pH POC ABG pCO2 POC ABG pO2 70.0 L ABG pO2 ABG HCO3 ABG O2 Saturation ABG Base Excess ABG Hemoglobin ABG Oxyhemoglobin 91.9 L ABG Sodium ABG Potassium ABG Chloride 109.0 H ABG Glucose 165 H Oxyhemoglobin Carboxyhemoglobin Sodium Potassium Chloride Carbon Dioxide BUN Creatinine Glucose POC Glucose 132 H 161 H Hemoglobin A1c Lactic Acid Calcium Phosphorus Magnesium Ferritin Total Bilirubin AST ALT Lactate Dehydrogenase C-Reactive Protein Albumin Triglycerides Arterial Blood Glucose 165 H Arterial Blood Ionized Calcium 4.5 L Urine Creatinine Coronavirus (PCR) Crossmatch 01/26/21 01/26/21 01/26/21 05:47 05:47 05:47 WBC RBC Hgb Hct 35.3 L MCV 96 H MCH 33 H MCHC RDW Plt Count Lymph % (Auto) Lymph # (Auto) Seg Neutrophils % Seg Neuts % (Manual) 96.0 H Lymphocytes % (Manual) 2.0 L Nucleated RBC % Seg Neutrophils # Seg Neutrophils # Man Lymphocytes # (Manual) 0.1 L Eosinophils # (Manual) INR D-Dimer > 48037 H ABG pH POC ABG pCO2 POC ABG pO2 ABG pO2 ABG HCO3 ABG O2 Saturation ABG Base Excess ABG Hemoglobin ABG Oxyhemoglobin ABG Sodium ABG Potassium ABG Chloride ABG Glucose Oxyhemoglobin Carboxyhemoglobin Sodium Potassium Chloride Carbon Dioxide BUN 57 H Creatinine 2.2 H Glucose 185 H POC Glucose Hemoglobin A1c Lactic Acid Calcium 8.1 L Phosphorus Magnesium Ferritin Total Bilirubin AST ALT Lactate Dehydrogenase C-Reactive Protein Albumin Triglycerides Arterial Blood Glucose Arterial Blood Ionized Calcium Urine Creatinine Coronavirus (PCR) Crossmatch 01/26/21 01/26/21 01/26/21 05:47 05:47 05:47 WBC RBC Hgb Hct MCV MCH MCHC RDW Plt Count Lymph % (Auto) Lymph # (Auto) Seg Neutrophils % Seg Neuts % (Manual) Lymphocytes % (Manual) Nucleated RBC % Seg Neutrophils # Seg Neutrophils # Man Lymphocytes # (Manual) Eosinophils # (Manual) INR D-Dimer ABG pH POC ABG pCO2 POC ABG pO2 ABG pO2 ABG HCO3 ABG O2 Saturation ABG Base Excess ABG Hemoglobin ABG Oxyhemoglobin ABG Sodium ABG Potassium ABG Chloride ABG Glucose Oxyhemoglobin Carboxyhemoglobin Sodium Potassium Chloride 107.1 H Carbon Dioxide BUN 56 H Creatinine 2.2 H Glucose 188 H POC Glucose Hemoglobin A1c Lactic Acid Calcium 8.0 L Phosphorus Magnesium Ferritin 1178.0 H Total Bilirubin 1.50 H AST ALT Lactate Dehydrogenase 588 H C-Reactive Protein 40.10 H Albumin 2.2 L Triglycerides Arterial Blood Glucose Arterial Blood Ionized Calcium Urine Creatinine Coronavirus (PCR) Crossmatch 01/26/21 01/26/21 01/26/21 11:34 18:17 23:20 WBC RBC Hgb Hct MCV MCH MCHC RDW Plt Count Lymph % (Auto) Lymph # (Auto) Seg Neutrophils % Seg Neuts % (Manual) Lymphocytes % (Manual) Nucleated RBC % Seg Neutrophils # Seg Neutrophils # Man Lymphocytes # (Manual) Eosinophils # (Manual) INR D-Dimer ABG pH POC ABG pCO2 POC ABG pO2 ABG pO2 ABG HCO3 ABG O2 Saturation ABG Base Excess ABG Hemoglobin ABG Oxyhemoglobin ABG Sodium ABG Potassium ABG Chloride ABG Glucose Oxyhemoglobin Carboxyhemoglobin Sodium Potassium Chloride Carbon Dioxide BUN Creatinine Glucose POC Glucose 129 H 205 H 155 H Hemoglobin A1c Lactic Acid Calcium Phosphorus Magnesium Ferritin Total Bilirubin AST ALT Lactate Dehydrogenase C-Reactive Protein Albumin Triglycerides Arterial Blood Glucose Arterial Blood Ionized Calcium Urine Creatinine Coronavirus (PCR) Crossmatch 01/27/21 01/27/21 01/27/21 02:45 05:29 05:29 WBC RBC 3.58 L Hgb 11.7 L Hct 34.9 L MCV 97 H MCH 33 H MCHC RDW Plt Count Lymph % (Auto) Lymph # (Auto) Seg Neutrophils % Seg Neuts % (Manual) 88.0 H Lymphocytes % (Manual) 7.0 L Nucleated RBC % Seg Neutrophils # Seg Neutrophils # Man Lymphocytes # (Manual) 0.5 L Eosinophils # (Manual) INR D-Dimer ABG pH 7.319 L POC ABG pCO2 50.7 H POC ABG pO2 63.0 L ABG pO2 ABG HCO3 ABG O2 Saturation ABG Base Excess ABG Hemoglobin ABG Oxyhemoglobin ABG Sodium 145.2 H ABG Potassium 5.1 H ABG Chloride 114.0 H ABG Glucose 178 H Oxyhemoglobin Carboxyhemoglobin Sodium Potassium Chloride Carbon Dioxide BUN Creatinine Glucose POC Glucose Hemoglobin A1c Lactic Acid Calcium Phosphorus Magnesium 4.00 H Ferritin Total Bilirubin AST ALT Lactate Dehydrogenase C-Reactive Protein Albumin Triglycerides Arterial Blood Glucose 178 H Arterial Blood Ionized Calcium Urine Creatinine Coronavirus (PCR) Crossmatch 01/27/21 01/27/21 01/27/21 05:29 05:29 05:31 WBC RBC Hgb Hct MCV MCH MCHC RDW Plt Count Lymph % (Auto) Lymph # (Auto) Seg Neutrophils % Seg Neuts % (Manual) Lymphocytes % (Manual) Nucleated RBC % Seg Neutrophils # Seg Neutrophils # Man Lymphocytes # (Manual) Eosinophils # (Manual) INR D-Dimer ABG pH POC ABG pCO2 POC ABG pO2 ABG pO2 ABG HCO3 ABG O2 Saturation ABG Base Excess ABG Hemoglobin ABG Oxyhemoglobin ABG Sodium ABG Potassium ABG Chloride ABG Glucose Oxyhemoglobin Carboxyhemoglobin Sodium Potassium 5.2 H Chloride 109.6 H Carbon Dioxide BUN 67 H Creatinine 2.8 H Glucose 195 H POC Glucose 176 H Hemoglobin A1c Lactic Acid Calcium 7.9 L Phosphorus Magnesium Ferritin Total Bilirubin AST ALT Lactate Dehydrogenase C-Reactive Protein Albumin Triglycerides 160 H Arterial Blood Glucose Arterial Blood Ionized Calcium Urine Creatinine Coronavirus (PCR) Crossmatch 01/27/21 01/27/21 01/27/21 11:27 18:08 23:30 WBC RBC Hgb Hct MCV MCH MCHC RDW Plt Count Lymph % (Auto) Lymph # (Auto) Seg Neutrophils % Seg Neuts % (Manual) Lymphocytes % (Manual) Nucleated RBC % Seg Neutrophils # Seg Neutrophils # Man Lymphocytes # (Manual) Eosinophils # (Manual) INR D-Dimer ABG pH POC ABG pCO2 POC ABG pO2 ABG pO2 ABG HCO3 ABG O2 Saturation ABG Base Excess ABG Hemoglobin ABG Oxyhemoglobin ABG Sodium ABG Potassium ABG Chloride ABG Glucose Oxyhemoglobin Carboxyhemoglobin Sodium Potassium Chloride Carbon Dioxide BUN Creatinine Glucose POC Glucose 189 H 212 H 175 H Hemoglobin A1c Lactic Acid Calcium Phosphorus Magnesium Ferritin Total Bilirubin AST ALT Lactate Dehydrogenase C-Reactive Protein Albumin Triglycerides Arterial Blood Glucose Arterial Blood Ionized Calcium Urine Creatinine Coronavirus (PCR) Crossmatch 01/28/21 01/28/21 01/28/21 03:58 04:00 04:00 WBC RBC Hgb Hct MCV MCH MCHC RDW Plt Count Lymph % (Auto) Lymph # (Auto) Seg Neutrophils % Seg Neuts % (Manual) Lymphocytes % (Manual) Nucleated RBC % Seg Neutrophils # Seg Neutrophils # Man Lymphocytes # (Manual) Eosinophils # (Manual) INR D-Dimer > 80398 H ABG pH POC ABG pCO2 POC ABG pO2 52.9 L ABG pO2 ABG HCO3 ABG O2 Saturation ABG Base Excess ABG Hemoglobin ABG Oxyhemoglobin 84.1 L ABG Sodium 148.9 H ABG Potassium ABG Chloride 117.0 H ABG Glucose 194 H Oxyhemoglobin Carboxyhemoglobin Sodium Potassium Chloride Carbon Dioxide BUN Creatinine Glucose POC Glucose Hemoglobin A1c Lactic Acid Calcium Phosphorus Magnesium Ferritin Total Bilirubin AST ALT Lactate Dehydrogenase 679 H C-Reactive Protein 17.10 H Albumin Triglycerides Arterial Blood Glucose 194 H Arterial Blood Ionized Calcium Urine Creatinine Coronavirus (PCR) Crossmatch 01/28/21 01/28/21 01/28/21 04:00 05:00 06:00 WBC RBC 3.59 L Hgb 11.6 L Hct 34.8 L MCV 97 H MCH MCHC RDW Plt Count Lymph % (Auto) Lymph # (Auto) Seg Neutrophils % Seg Neuts % (Manual) 96.0 H Lymphocytes % (Manual) 3.0 L Nucleated RBC % Seg Neutrophils # Seg Neutrophils # Man Lymphocytes # (Manual) 0.2 L Eosinophils # (Manual) INR D-Dimer ABG pH POC ABG pCO2 POC ABG pO2 ABG pO2 ABG HCO3 ABG O2 Saturation ABG Base Excess ABG Hemoglobin ABG Oxyhemoglobin ABG Sodium ABG Potassium ABG Chloride ABG Glucose Oxyhemoglobin Carboxyhemoglobin Sodium Potassium Chloride Carbon Dioxide BUN Creatinine Glucose POC Glucose 159 H Hemoglobin A1c Lactic Acid Calcium Phosphorus Magnesium Ferritin 798.0 H Total Bilirubin AST ALT Lactate Dehydrogenase C-Reactive Protein Albumin Triglycerides Arterial Blood Glucose Arterial Blood Ionized Calcium Urine Creatinine Coronavirus (PCR) Crossmatch 01/28/21 01/28/21 01/28/21 06:00 06:00 08:12 WBC RBC Hgb Hct MCV MCH MCHC RDW Plt Count Lymph % (Auto) Lymph # (Auto) Seg Neutrophils % Seg Neuts % (Manual) Lymphocytes % (Manual) Nucleated RBC % Seg Neutrophils # Seg Neutrophils # Man Lymphocytes # (Manual) Eosinophils # (Manual) INR D-Dimer ABG pH POC ABG pCO2 POC ABG pO2 ABG pO2 ABG HCO3 ABG O2 Saturation ABG Base Excess ABG Hemoglobin ABG Oxyhemoglobin ABG Sodium ABG Potassium ABG Chloride ABG Glucose Oxyhemoglobin Carboxyhemoglobin Sodium Potassium Chloride 111.9 H Carbon Dioxide BUN 59 H Creatinine 2.2 H Glucose 189 H POC Glucose 181 H Hemoglobin A1c Lactic Acid Calcium 8.1 L Phosphorus Magnesium 3.20 H Ferritin Total Bilirubin AST ALT Lactate Dehydrogenase C-Reactive Protein Albumin Triglycerides Arterial Blood Glucose Arterial Blood Ionized Calcium Urine Creatinine Coronavirus (PCR) Crossmatch 01/28/21 01/28/21 01/28/21 12:03 16:43 23:51 WBC RBC Hgb Hct MCV MCH MCHC RDW Plt Count Lymph % (Auto) Lymph # (Auto) Seg Neutrophils % Seg Neuts % (Manual) Lymphocytes % (Manual) Nucleated RBC % Seg Neutrophils # Seg Neutrophils # Man Lymphocytes # (Manual) Eosinophils # (Manual) INR D-Dimer ABG pH POC ABG pCO2 POC ABG pO2 ABG pO2 ABG HCO3 ABG O2 Saturation ABG Base Excess ABG Hemoglobin ABG Oxyhemoglobin ABG Sodium ABG Potassium ABG Chloride ABG Glucose Oxyhemoglobin Carboxyhemoglobin Sodium Potassium Chloride Carbon Dioxide BUN Creatinine Glucose POC Glucose 164 H 198 H 196 H Hemoglobin A1c Lactic Acid Calcium Phosphorus Magnesium Ferritin Total Bilirubin AST ALT Lactate Dehydrogenase C-Reactive Protein Albumin Triglycerides Arterial Blood Glucose Arterial Blood Ionized Calcium Urine Creatinine Coronavirus (PCR) Crossmatch 01/29/21 01/29/21 01/29/21 05:00 05:23 06:00 WBC RBC Hgb Hct MCV MCH MCHC RDW Plt Count Lymph % (Auto) Lymph # (Auto) Seg Neutrophils % Seg Neuts % (Manual) Lymphocytes % (Manual) Nucleated RBC % Seg Neutrophils # Seg Neutrophils # Man Lymphocytes # (Manual) Eosinophils # (Manual) INR D-Dimer ABG pH 7.119 L POC ABG pCO2 87.1 H POC ABG pO2 ABG pO2 ABG HCO3 ABG O2 Saturation ABG Base Excess ABG Hemoglobin ABG Oxyhemoglobin ABG Sodium 152.5 H ABG Potassium 5.7 H ABG Chloride 120.0 H ABG Glucose 217 H Oxyhemoglobin Carboxyhemoglobin Sodium 151 H Potassium 5.9 H D Chloride 117.8 H Carbon Dioxide BUN 54 H Creatinine 2.2 H Glucose 208 H POC Glucose 180 H Hemoglobin A1c Lactic Acid Calcium 7.9 L Phosphorus Magnesium Ferritin Total Bilirubin AST ALT Lactate Dehydrogenase C-Reactive Protein Albumin Triglycerides Arterial Blood Glucose 217 H Arterial Blood Ionized Calcium Urine Creatinine Coronavirus (PCR) Crossmatch 01/29/21 01/29/21 01/29/21 12:29 17:28 18:05 WBC RBC Hgb Hct MCV MCH MCHC RDW Plt Count Lymph % (Auto) Lymph # (Auto) Seg Neutrophils % Seg Neuts % (Manual) Lymphocytes % (Manual) Nucleated RBC % Seg Neutrophils # Seg Neutrophils # Man Lymphocytes # (Manual) Eosinophils # (Manual) INR D-Dimer ABG pH POC ABG pCO2 POC ABG pO2 ABG pO2 ABG HCO3 ABG O2 Saturation ABG Base Excess ABG Hemoglobin ABG Oxyhemoglobin ABG Sodium ABG Potassium ABG Chloride ABG Glucose Oxyhemoglobin Carboxyhemoglobin Sodium 151 H Potassium 5.5 H Chloride 118.2 H Carbon Dioxide BUN 52 H Creatinine 2.2 H Glucose 224 H POC Glucose 181 H 203 H Hemoglobin A1c Lactic Acid Calcium 8.0 L Phosphorus Magnesium Ferritin Total Bilirubin AST ALT Lactate Dehydrogenase C-Reactive Protein Albumin Triglycerides Arterial Blood Glucose Arterial Blood Ionized Calcium Urine Creatinine Coronavirus (PCR) Crossmatch 01/29/21 01/29/21 01/29/21 18:13 23:34 Unknown WBC RBC Hgb Hct MCV 101 H MCH MCHC RDW 15.7 H Plt Count Lymph % (Auto) Lymph # (Auto) Seg Neutrophils % Seg Neuts % (Manual) 95.0 H Lymphocytes % (Manual) 3.0 L Nucleated RBC % Seg Neutrophils # Seg Neutrophils # Man 8.0 H Lymphocytes # (Manual) 0.3 L Eosinophils # (Manual) INR D-Dimer ABG pH 7.223 L POC ABG pCO2 64.8 H POC ABG pO2 63.6 L ABG pO2 ABG HCO3 ABG O2 Saturation ABG Base Excess ABG Hemoglobin ABG Oxyhemoglobin 89.4 L ABG Sodium 152.9 H ABG Potassium 5.3 H ABG Chloride 121.0 H ABG Glucose 227 H Oxyhemoglobin Carboxyhemoglobin Sodium Potassium Chloride Carbon Dioxide BUN Creatinine Glucose POC Glucose 198 H Hemoglobin A1c Lactic Acid Calcium Phosphorus Magnesium Ferritin Total Bilirubin AST ALT Lactate Dehydrogenase C-Reactive Protein Albumin Triglycerides Arterial Blood Glucose 227 H Arterial Blood Ionized Calcium Urine Creatinine Coronavirus (PCR) Crossmatch 01/30/21 01/30/21 01/30/21 04:00 04:00 04:00 WBC RBC Hgb Hct MCV MCH MCHC RDW Plt Count Lymph % (Auto) Lymph # (Auto) Seg Neutrophils % Seg Neuts % (Manual) Lymphocytes % (Manual) Nucleated RBC % Seg Neutrophils # Seg Neutrophils # Man Lymphocytes # (Manual) Eosinophils # (Manual) INR D-Dimer > 83366 H ABG pH POC ABG pCO2 POC ABG pO2 ABG pO2 ABG HCO3 ABG O2 Saturation ABG Base Excess ABG Hemoglobin ABG Oxyhemoglobin ABG Sodium ABG Potassium ABG Chloride ABG Glucose Oxyhemoglobin Carboxyhemoglobin Sodium Potassium Chloride Carbon Dioxide BUN Creatinine Glucose 234 H POC Glucose Hemoglobin A1c Lactic Acid Calcium Phosphorus Magnesium Ferritin 763.9 H Total Bilirubin AST ALT Lactate Dehydrogenase 424 H C-Reactive Protein 23.90 H Albumin Triglycerides Arterial Blood Glucose Arterial Blood Ionized Calcium Urine Creatinine Coronavirus (PCR) Crossmatch 01/30/21 01/30/21 01/30/21 04:24 05:00 05:16 WBC RBC 3.57 L Hgb 11.3 L Hct 35.4 L MCV 99 H MCH MCHC RDW 15.6 H Plt Count Lymph % (Auto) Lymph # (Auto) Seg Neutrophils % Seg Neuts % (Manual) 97.0 H Lymphocytes % (Manual) 1.0 L Nucleated RBC % Seg Neutrophils # Seg Neutrophils # Man 8.6 H Lymphocytes # (Manual) 0.1 L Eosinophils # (Manual) INR D-Dimer ABG pH 7.235 L POC ABG pCO2 69.7 H POC ABG pO2 61.0 L ABG pO2 ABG HCO3 ABG O2 Saturation ABG Base Excess ABG Hemoglobin ABG Oxyhemoglobin 89 L ABG Sodium 154.2 H ABG Potassium 5.4 H ABG Chloride 121.0 H ABG Glucose 247 H Oxyhemoglobin Carboxyhemoglobin Sodium Potassium Chloride Carbon Dioxide BUN Creatinine Glucose POC Glucose 238 H Hemoglobin A1c Lactic Acid Calcium Phosphorus Magnesium Ferritin Total Bilirubin AST ALT Lactate Dehydrogenase C-Reactive Protein Albumin Triglycerides Arterial Blood Glucose 247 H Arterial Blood Ionized Calcium Urine Creatinine Coronavirus (PCR) Crossmatch 01/30/21 01/30/21 01/30/21 06:00 11:28 12:00 WBC RBC Hgb Hct MCV MCH MCHC RDW Plt Count Lymph % (Auto) Lymph # (Auto) Seg Neutrophils % Seg Neuts % (Manual) Lymphocytes % (Manual) Nucleated RBC % Seg Neutrophils # Seg Neutrophils # Man Lymphocytes # (Manual) Eosinophils # (Manual) INR D-Dimer ABG pH POC ABG pCO2 POC ABG pO2 ABG pO2 ABG HCO3 ABG O2 Saturation ABG Base Excess ABG Hemoglobin ABG Oxyhemoglobin ABG Sodium ABG Potassium ABG Chloride ABG Glucose Oxyhemoglobin Carboxyhemoglobin Sodium 152 H Potassium 5.3 H Chloride 120.5 H Carbon Dioxide BUN 50 H Creatinine 2.3 H Glucose 239 H POC Glucose 153 H Hemoglobin A1c Lactic Acid Calcium 8.2 L Phosphorus Magnesium 2.60 H Ferritin Total Bilirubin AST ALT Lactate Dehydrogenase C-Reactive Protein Albumin Triglycerides 293 H Arterial Blood Glucose Arterial Blood Ionized Calcium Urine Creatinine 53.0 H Coronavirus (PCR) Crossmatch 01/30/21 01/30/21 01/31/21 18:49 23:06 04:00 WBC RBC Hgb Hct MCV MCH MCHC RDW Plt Count Lymph % (Auto) Lymph # (Auto) Seg Neutrophils % Seg Neuts % (Manual) Lymphocytes % (Manual) Nucleated RBC % Seg Neutrophils # Seg Neutrophils # Man Lymphocytes # (Manual) Eosinophils # (Manual) INR D-Dimer ABG pH POC ABG pCO2 POC ABG pO2 ABG pO2 ABG HCO3 ABG O2 Saturation ABG Base Excess ABG Hemoglobin ABG Oxyhemoglobin ABG Sodium ABG Potassium ABG Chloride ABG Glucose Oxyhemoglobin Carboxyhemoglobin Sodium 156 H Potassium 5.9 H Chloride 122.6 H Carbon Dioxide BUN 61 H Creatinine 3.2 H Glucose 205 H POC Glucose 220 H 192 H Hemoglobin A1c Lactic Acid Calcium 8.0 L Phosphorus Magnesium Ferritin Total Bilirubin AST ALT Lactate Dehydrogenase C-Reactive Protein Albumin Triglycerides Arterial Blood Glucose Arterial Blood Ionized Calcium Urine Creatinine Coronavirus (PCR) Crossmatch 01/31/21 01/31/21 01/31/21 04:40 05:17 11:33 WBC RBC Hgb Hct MCV MCH MCHC RDW Plt Count Lymph % (Auto) Lymph # (Auto) Seg Neutrophils % Seg Neuts % (Manual) Lymphocytes % (Manual) Nucleated RBC % Seg Neutrophils # Seg Neutrophils # Man Lymphocytes # (Manual) Eosinophils # (Manual) INR D-Dimer ABG pH 7.161 L* POC ABG pCO2 POC ABG pO2 ABG pO2 142.2 H ABG HCO3 28.3 H ABG O2 Saturation ABG Base Excess -3.2 L ABG Hemoglobin ABG Oxyhemoglobin ABG Sodium ABG Potassium ABG Chloride ABG Glucose Oxyhemoglobin Carboxyhemoglobin Sodium Potassium Chloride Carbon Dioxide BUN Creatinine Glucose POC Glucose 200 H 167 H Hemoglobin A1c Lactic Acid Calcium Phosphorus Magnesium Ferritin Total Bilirubin AST ALT Lactate Dehydrogenase C-Reactive Protein Albumin Triglycerides Arterial Blood Glucose Arterial Blood Ionized Calcium Urine Creatinine Coronavirus (PCR) Crossmatch 01/31/21 01/31/21 01/31/21 14:00 17:10 23:24 WBC RBC Hgb Hct MCV MCH MCHC RDW Plt Count Lymph % (Auto) Lymph # (Auto) Seg Neutrophils % Seg Neuts % (Manual) Lymphocytes % (Manual) Nucleated RBC % Seg Neutrophils # Seg Neutrophils # Man Lymphocytes # (Manual) Eosinophils # (Manual) INR D-Dimer ABG pH 7.205 L POC ABG pCO2 POC ABG pO2 ABG pO2 90.9 H ABG HCO3 26.5 H ABG O2 Saturation ABG Base Excess -2.7 L ABG Hemoglobin 12.3 L ABG Oxyhemoglobin ABG Sodium ABG Potassium ABG Chloride ABG Glucose Oxyhemoglobin 93.9 L Carboxyhemoglobin Sodium Potassium Chloride Carbon Dioxide BUN Creatinine Glucose POC Glucose 190 H 203 H Hemoglobin A1c Lactic Acid Calcium Phosphorus Magnesium Ferritin Total Bilirubin AST ALT Lactate Dehydrogenase C-Reactive Protein Albumin Triglycerides Arterial Blood Glucose Arterial Blood Ionized Calcium Urine Creatinine Coronavirus (PCR) Crossmatch 02/01/21 02/01/21 02/01/21 05:15 06:22 10:20 WBC RBC Hgb Hct MCV MCH MCHC RDW Plt Count Lymph % (Auto) Lymph # (Auto) Seg Neutrophils % Seg Neuts % (Manual) Lymphocytes % (Manual) Nucleated RBC % Seg Neutrophils # Seg Neutrophils # Man Lymphocytes # (Manual) Eosinophils # (Manual) INR D-Dimer ABG pH 6.920 L* 7.116 L* POC ABG pCO2 POC ABG pO2 ABG pO2 102.9 H 113.1 H ABG HCO3 28.2 H ABG O2 Saturation 92.9 L ABG Base Excess -6.9 L -5.8 L ABG Hemoglobin 11.6 L 9.5 L ABG Oxyhemoglobin ABG Sodium ABG Potassium ABG Chloride ABG Glucose Oxyhemoglobin 90.5 L 94.6 L Carboxyhemoglobin Sodium Potassium Chloride Carbon Dioxide BUN Creatinine Glucose POC Glucose 221 H Hemoglobin A1c Lactic Acid Calcium Phosphorus Magnesium Ferritin Total Bilirubin AST ALT Lactate Dehydrogenase C-Reactive Protein Albumin Triglycerides Arterial Blood Glucose Arterial Blood Ionized Calcium Urine Creatinine Coronavirus (PCR) Crossmatch 02/01/21 02/01/21 02/01/21 11:12 12:35 16:00 WBC RBC Hgb Hct MCV MCH MCHC RDW Plt Count Lymph % (Auto) Lymph # (Auto) Seg Neutrophils % Seg Neuts % (Manual) Lymphocytes % (Manual) Nucleated RBC % Seg Neutrophils # Seg Neutrophils # Man Lymphocytes # (Manual) Eosinophils # (Manual) INR D-Dimer ABG pH 7.155 L* POC ABG pCO2 POC ABG pO2 ABG pO2 94.6 H ABG HCO3 ABG O2 Saturation ABG Base Excess -6.5 L ABG Hemoglobin 13.1 L ABG Oxyhemoglobin ABG Sodium ABG Potassium ABG Chloride ABG Glucose Oxyhemoglobin 93.7 L Carboxyhemoglobin Sodium 155 H Potassium 5.1 H Chloride 120.5 H Carbon Dioxide BUN 90 H Creatinine 6.1 H D Glucose 238 H POC Glucose 207 H Hemoglobin A1c Lactic Acid Calcium 7.4 L Phosphorus Magnesium Ferritin Total Bilirubin AST ALT Lactate Dehydrogenase C-Reactive Protein Albumin Triglycerides Arterial Blood Glucose Arterial Blood Ionized Calcium Urine Creatinine Coronavirus (PCR) Crossmatch 02/01/21 02/01/21 02/02/21 17:10 23:47 04:04 WBC RBC 3.02 L Hgb 9.8 L Hct 30.7 L MCV 102 H MCH MCHC RDW 15.6 H Plt Count Lymph % (Auto) 4.2 L Lymph # (Auto) 0.3 L Seg Neutrophils % Seg Neuts % (Manual) Lymphocytes % (Manual) Nucleated RBC % Seg Neutrophils # Seg Neutrophils # Man Lymphocytes # (Manual) Eosinophils # (Manual) INR D-Dimer ABG pH POC ABG pCO2 POC ABG pO2 ABG pO2 ABG HCO3 ABG O2 Saturation ABG Base Excess ABG Hemoglobin ABG Oxyhemoglobin ABG Sodium ABG Potassium ABG Chloride ABG Glucose Oxyhemoglobin Carboxyhemoglobin Sodium Potassium Chloride Carbon Dioxide BUN Creatinine Glucose POC Glucose 238 H 235 H Hemoglobin A1c Lactic Acid Calcium Phosphorus Magnesium Ferritin Total Bilirubin AST ALT Lactate Dehydrogenase C-Reactive Protein Albumin Triglycerides Arterial Blood Glucose Arterial Blood Ionized Calcium Urine Creatinine Coronavirus (PCR) Crossmatch 02/02/21 02/02/21 02/02/21 05:18 05:35 11:28 WBC RBC Hgb Hct MCV MCH MCHC RDW Plt Count Lymph % (Auto) Lymph # (Auto) Seg Neutrophils % Seg Neuts % (Manual) Lymphocytes % (Manual) Nucleated RBC % Seg Neutrophils # Seg Neutrophils # Man Lymphocytes # (Manual) Eosinophils # (Manual) INR D-Dimer ABG pH 7.195 L* POC ABG pCO2 POC ABG pO2 ABG pO2 72.5 L ABG HCO3 ABG O2 Saturation 91.2 L ABG Base Excess -5.3 L ABG Hemoglobin 6.0 L ABG Oxyhemoglobin ABG Sodium ABG Potassium ABG Chloride ABG Glucose Oxyhemoglobin 89.1 L Carboxyhemoglobin Sodium Potassium Chloride 110.4 H Carbon Dioxide BUN 92 H Creatinine Glucose POC Glucose 239 H Hemoglobin A1c Lactic Acid Calcium Phosphorus Magnesium Ferritin Total Bilirubin AST ALT Lactate Dehydrogenase C-Reactive Protein Albumin Triglycerides Arterial Blood Glucose Arterial Blood Ionized Calcium Urine Creatinine Coronavirus (PCR) Crossmatch 02/02/21 02/02/21 02/02/21 11:53 16:00 18:04 WBC RBC Hgb Hct MCV MCH MCHC RDW Plt Count Lymph % (Auto) Lymph # (Auto) Seg Neutrophils % Seg Neuts % (Manual) Lymphocytes % (Manual) Nucleated RBC % Seg Neutrophils # Seg Neutrophils # Man Lymphocytes # (Manual) Eosinophils # (Manual) INR D-Dimer ABG pH POC ABG pCO2 POC ABG pO2 ABG pO2 ABG HCO3 ABG O2 Saturation ABG Base Excess ABG Hemoglobin ABG Oxyhemoglobin ABG Sodium ABG Potassium ABG Chloride ABG Glucose Oxyhemoglobin Carboxyhemoglobin Sodium Potassium Chloride Carbon Dioxide BUN Creatinine Glucose POC Glucose 248 H 199 H Hemoglobin A1c 6.3 H Lactic Acid Calcium Phosphorus Magnesium Ferritin Total Bilirubin AST ALT Lactate Dehydrogenase C-Reactive Protein Albumin Triglycerides Arterial Blood Glucose Arterial Blood Ionized Calcium Urine Creatinine Coronavirus (PCR) Crossmatch 02/02/21 02/03/21 02/03/21 23:31 03:12 04:10 WBC RBC 3.06 L Hgb 9.7 L Hct 30.4 L MCV 99 H MCH MCHC RDW 15.3 H Plt Count Lymph % (Auto) 6.1 L Lymph # (Auto) 0.5 L Seg Neutrophils % 86.1 H Seg Neuts % (Manual) Lymphocytes % (Manual) Nucleated RBC % Seg Neutrophils # Seg Neutrophils # Man Lymphocytes # (Manual) Eosinophils # (Manual) INR D-Dimer ABG pH 7.199 L POC ABG pCO2 48.3 H POC ABG pO2 68.3 L ABG pO2 ABG HCO3 ABG O2 Saturation ABG Base Excess ABG Hemoglobin 10.2 L ABG Oxyhemoglobin 89.2 L ABG Sodium 155.0 H ABG Potassium 4.6 H ABG Chloride 121.0 H ABG Glucose 166 H Oxyhemoglobin Carboxyhemoglobin 0.3 L Sodium Potassium Chloride Carbon Dioxide BUN Creatinine Glucose POC Glucose 200 H Hemoglobin A1c Lactic Acid Calcium Phosphorus Magnesium Ferritin Total Bilirubin AST ALT Lactate Dehydrogenase C-Reactive Protein Albumin Triglycerides Arterial Blood Glucose 166 H Arterial Blood Ionized Calcium 4.1 L Urine Creatinine Coronavirus (PCR) Crossmatch 02/03/21 02/03/21 02/03/21 04:10 05:34 11:51 WBC RBC Hgb Hct MCV MCH MCHC RDW Plt Count Lymph % (Auto) Lymph # (Auto) Seg Neutrophils % Seg Neuts % (Manual) Lymphocytes % (Manual) Nucleated RBC % Seg Neutrophils # Seg Neutrophils # Man Lymphocytes # (Manual) Eosinophils # (Manual) INR D-Dimer ABG pH POC ABG pCO2 POC ABG pO2 ABG pO2 ABG HCO3 ABG O2 Saturation ABG Base Excess ABG Hemoglobin ABG Oxyhemoglobin ABG Sodium ABG Potassium ABG Chloride ABG Glucose Oxyhemoglobin Carboxyhemoglobin Sodium 154 H D Potassium Chloride 116.7 H Carbon Dioxide 20 L BUN 130 H Creatinine 9.2 H D Glucose 160 H POC Glucose 130 H 154 H Hemoglobin A1c Lactic Acid Calcium 6.7 L Phosphorus 8.60 H Magnesium Ferritin Total Bilirubin AST ALT Lactate Dehydrogenase C-Reactive Protein Albumin Triglycerides Arterial Blood Glucose Arterial Blood Ionized Calcium Urine Creatinine Coronavirus (PCR) Crossmatch 02/03/21 02/03/21 02/04/21 16:49 23:22 03:48 WBC RBC Hgb Hct MCV MCH MCHC RDW Plt Count Lymph % (Auto) Lymph # (Auto) Seg Neutrophils % Seg Neuts % (Manual) Lymphocytes % (Manual) Nucleated RBC % Seg Neutrophils # Seg Neutrophils # Man Lymphocytes # (Manual) Eosinophils # (Manual) INR D-Dimer ABG pH 7.201 L POC ABG pCO2 54.5 H POC ABG pO2 74.0 L ABG pO2 ABG HCO3 ABG O2 Saturation ABG Base Excess ABG Hemoglobin 9.7 L ABG Oxyhemoglobin 91.1 L ABG Sodium 146.2 H ABG Potassium ABG Chloride 114.0 H ABG Glucose 155 H Oxyhemoglobin Carboxyhemoglobin Sodium Potassium Chloride Carbon Dioxide BUN Creatinine Glucose POC Glucose 164 H 152 H Hemoglobin A1c Lactic Acid Calcium Phosphorus Magnesium Ferritin Total Bilirubin AST ALT Lactate Dehydrogenase C-Reactive Protein Albumin Triglycerides Arterial Blood Glucose 155 H Arterial Blood Ionized Calcium 3.9 L Urine Creatinine Coronavirus (PCR) Crossmatch 02/04/21 02/04/21 02/04/21 04:45 04:45 04:45 WBC RBC 2.75 L Hgb 9.1 L Hct 26.9 L MCV 98 H MCH 33 H MCHC RDW Plt Count Lymph % (Auto) 6.8 L Lymph # (Auto) 0.5 L Seg Neutrophils % 87.2 H Seg Neuts % (Manual) Lymphocytes % (Manual) Nucleated RBC % Seg Neutrophils # Seg Neutrophils # Man Lymphocytes # (Manual) Eosinophils # (Manual) INR D-Dimer ABG pH POC ABG pCO2 POC ABG pO2 ABG pO2 ABG HCO3 ABG O2 Saturation ABG Base Excess ABG Hemoglobin ABG Oxyhemoglobin ABG Sodium ABG Potassium ABG Chloride ABG Glucose Oxyhemoglobin Carboxyhemoglobin Sodium 149 H Potassium Chloride 111.5 H Carbon Dioxide BUN 99 H Creatinine 8.5 H Glucose 139 H POC Glucose Hemoglobin A1c Lactic Acid Calcium 6.8 L Phosphorus 8.40 H Magnesium Ferritin Total Bilirubin AST ALT Lactate Dehydrogenase C-Reactive Protein Albumin Triglycerides Arterial Blood Glucose Arterial Blood Ionized Calcium Urine Creatinine Coronavirus (PCR) Crossmatch 02/04/21 02/04/21 02/04/21 06:05 11:44 18:00 WBC RBC Hgb Hct MCV MCH MCHC RDW Plt Count Lymph % (Auto) Lymph # (Auto) Seg Neutrophils % Seg Neuts % (Manual) Lymphocytes % (Manual) Nucleated RBC % Seg Neutrophils # Seg Neutrophils # Man Lymphocytes # (Manual) Eosinophils # (Manual) INR D-Dimer ABG pH POC ABG pCO2 POC ABG pO2 ABG pO2 ABG HCO3 ABG O2 Saturation ABG Base Excess ABG Hemoglobin ABG Oxyhemoglobin ABG Sodium ABG Potassium ABG Chloride ABG Glucose Oxyhemoglobin Carboxyhemoglobin Sodium Potassium Chloride Carbon Dioxide BUN Creatinine Glucose POC Glucose 138 H 129 H 163 H Hemoglobin A1c Lactic Acid Calcium Phosphorus Magnesium Ferritin Total Bilirubin AST ALT Lactate Dehydrogenase C-Reactive Protein Albumin Triglycerides Arterial Blood Glucose Arterial Blood Ionized Calcium Urine Creatinine Coronavirus (PCR) Crossmatch 02/04/21 02/05/21 02/05/21 23:48 01:50 01:50 WBC RBC 2.43 L Hgb 8.3 L Hct 23.6 L MCV 97 H MCH 34 H MCHC 35 H RDW Plt Count 137 L Lymph % (Auto) 8.4 L Lymph # (Auto) 0.6 L Seg Neutrophils % 86.1 H Seg Neuts % (Manual) Lymphocytes % (Manual) Nucleated RBC % Seg Neutrophils # Seg Neutrophils # Man Lymphocytes # (Manual) Eosinophils # (Manual) INR D-Dimer ABG pH POC ABG pCO2 POC ABG pO2 ABG pO2 ABG HCO3 ABG O2 Saturation ABG Base Excess ABG Hemoglobin ABG Oxyhemoglobin ABG Sodium ABG Potassium ABG Chloride ABG Glucose Oxyhemoglobin Carboxyhemoglobin Sodium Potassium Chloride Carbon Dioxide BUN Creatinine Glucose POC Glucose 157 H Hemoglobin A1c Lactic Acid Calcium Phosphorus 5.60 H D Magnesium Ferritin Total Bilirubin AST ALT Lactate Dehydrogenase C-Reactive Protein Albumin Triglycerides Arterial Blood Glucose Arterial Blood Ionized Calcium Urine Creatinine Coronavirus (PCR) Crossmatch 02/05/21 02/05/21 02/05/21 03:44 05:27 09:15 WBC RBC Hgb Hct MCV MCH MCHC RDW Plt Count Lymph % (Auto) Lymph # (Auto) Seg Neutrophils % Seg Neuts % (Manual) Lymphocytes % (Manual) Nucleated RBC % Seg Neutrophils # Seg Neutrophils # Man Lymphocytes # (Manual) Eosinophils # (Manual) INR D-Dimer ABG pH 7.202 L POC ABG pCO2 63.7 H POC ABG pO2 69.0 L ABG pO2 ABG HCO3 ABG O2 Saturation ABG Base Excess ABG Hemoglobin 9.4 L ABG Oxyhemoglobin ABG Sodium ABG Potassium ABG Chloride 108.0 H ABG Glucose 186 H Oxyhemoglobin Carboxyhemoglobin Sodium Potassium Chloride Carbon Dioxide BUN 78 H Creatinine 8.0 H Glucose 163 H POC Glucose 157 H Hemoglobin A1c Lactic Acid Calcium 6.3 L Phosphorus Magnesium Ferritin Total Bilirubin AST ALT Lactate Dehydrogenase C-Reactive Protein Albumin Triglycerides Arterial Blood Glucose 186 H Arterial Blood Ionized Calcium 3.9 L Urine Creatinine Coronavirus (PCR) Crossmatch 02/05/21 02/05/21 02/05/21 11:47 17:39 23:40 WBC RBC Hgb Hct MCV MCH MCHC RDW Plt Count Lymph % (Auto) Lymph # (Auto) Seg Neutrophils % Seg Neuts % (Manual) Lymphocytes % (Manual) Nucleated RBC % Seg Neutrophils # Seg Neutrophils # Man Lymphocytes # (Manual) Eosinophils # (Manual) INR D-Dimer ABG pH 7.273 L POC ABG pCO2 62.1 H POC ABG pO2 72.0 L ABG pO2 ABG HCO3 ABG O2 Saturation ABG Base Excess ABG Hemoglobin 9.1 L ABG Oxyhemoglobin 91.3 L ABG Sodium ABG Potassium 3.1 L ABG Chloride ABG Glucose 125 H Oxyhemoglobin Carboxyhemoglobin Sodium Potassium Chloride Carbon Dioxide BUN Creatinine Glucose POC Glucose 126 H 126 H Hemoglobin A1c Lactic Acid Calcium Phosphorus Magnesium Ferritin Total Bilirubin AST ALT Lactate Dehydrogenase C-Reactive Protein Albumin Triglycerides Arterial Blood Glucose 125 H Arterial Blood Ionized Calcium 4.0 L Urine Creatinine Coronavirus (PCR) Crossmatch 02/06/21 02/06/2121 04:30 04:57 09:45 WBC RBC Hgb Hct MCV MCH MCHC RDW Plt Count Lymph % (Auto) Lymph # (Auto) Seg Neutrophils % Seg Neuts % (Manual) Lymphocytes % (Manual) Nucleated RBC % Seg Neutrophils # Seg Neutrophils # Man Lymphocytes # (Manual) Eosinophils # (Manual) INR D-Dimer ABG pH 7.159 L 7.138 L* POC ABG pCO2 76.3 H POC ABG pO2 66.9 L ABG pO2 ABG HCO3 ABG O2 Saturation 93.4 L ABG Base Excess -6.0 L ABG Hemoglobin 11.2 L 11.7 L ABG Oxyhemoglobin 88.2 L ABG Sodium ABG Potassium ABG Chloride ABG Glucose 134 H Oxyhemoglobin 91.2 L Carboxyhemoglobin Sodium Potassium Chloride Carbon Dioxide BUN Creatinine Glucose POC Glucose 124 H Hemoglobin A1c Lactic Acid Calcium Phosphorus Magnesium Ferritin Total Bilirubin AST ALT Lactate Dehydrogenase C-Reactive Protein Albumin Triglycerides Arterial Blood Glucose 134 H Arterial Blood Ionized Calcium 3.9 L Urine Creatinine Coronavirus (PCR) Crossmatch 02/06/21 02/06/21 02/06/21 11:11 17:00 17:00 WBC RBC Hgb Hct MCV MCH MCHC RDW Plt Count Lymph % (Auto) Lymph # (Auto) Seg Neutrophils % Seg Neuts % (Manual) Lymphocytes % (Manual) Nucleated RBC % Seg Neutrophils # Seg Neutrophils # Man Lymphocytes # (Manual) Eosinophils # (Manual) INR D-Dimer ABG pH 7.158 L* POC ABG pCO2 POC ABG pO2 ABG pO2 109.8 H ABG HCO3 28.7 H ABG O2 Saturation ABG Base Excess -2.5 L ABG Hemoglobin ABG Oxyhemoglobin ABG Sodium ABG Potassium ABG Chloride ABG Glucose Oxyhemoglobin 94.5 L Carboxyhemoglobin Sodium Potassium Chloride Carbon Dioxide BUN Creatinine Glucose POC Glucose 120 H Hemoglobin A1c Lactic Acid Calcium Phosphorus Magnesium Ferritin Total Bilirubin AST ALT Lactate Dehydrogenase C-Reactive Protein Albumin Triglycerides 503 H Arterial Blood Glucose Arterial Blood Ionized Calcium Urine Creatinine Coronavirus (PCR) Crossmatch 02/06/21 02/06/21 02/06/21 17:28 20:16 Unknown WBC 13.5 H RBC 2.98 L Hgb 9.3 L Hct 28.6 L MCV 96 H MCH MCHC RDW Plt Count Lymph % (Auto) Lymph # (Auto) Seg Neutrophils % Seg Neuts % (Manual) 87.0 H Lymphocytes % (Manual) 7.0 L Nucleated RBC % Seg Neutrophils # Seg Neutrophils # Man 11.7 H Lymphocytes # (Manual) 0.9 L Eosinophils # (Manual) 0.5 H INR D-Dimer ABG pH POC ABG pCO2 POC ABG pO2 ABG pO2 ABG HCO3 ABG O2 Saturation ABG Base Excess ABG Hemoglobin ABG Oxyhemoglobin ABG Sodium ABG Potassium ABG Chloride ABG Glucose Oxyhemoglobin Carboxyhemoglobin Sodium Potassium Chloride Carbon Dioxide BUN Creatinine Glucose POC Glucose 147 H 164 H Hemoglobin A1c Lactic Acid Calcium Phosphorus Magnesium Ferritin Total Bilirubin AST ALT Lactate Dehydrogenase C-Reactive Protein Albumin Triglycerides Arterial Blood Glucose Arterial Blood Ionized Calcium Urine Creatinine Coronavirus (PCR) Crossmatch 02/06/21 02/07/21 02/07/21 Unknown 01:21 04:00 WBC 12.0 H RBC 2.61 L Hgb 8.2 L Hct 24.5 L MCV MCH MCHC RDW Plt Count Lymph % (Auto) 8.9 L Lymph # (Auto) 1.1 L Seg Neutrophils % 86.3 H Seg Neuts % (Manual) Lymphocytes % (Manual) Nucleated RBC % Seg Neutrophils # 10.3 H Seg Neutrophils # Man Lymphocytes # (Manual) Eosinophils # (Manual) INR D-Dimer ABG pH POC ABG pCO2 POC ABG pO2 ABG pO2 ABG HCO3 ABG O2 Saturation ABG Base Excess ABG Hemoglobin ABG Oxyhemoglobin ABG Sodium ABG Potassium ABG Chloride ABG Glucose Oxyhemoglobin Carboxyhemoglobin Sodium Potassium 3.5 L Chloride Carbon Dioxide BUN 58 H Creatinine 6.6 H Glucose 107 H POC Glucose 173 H Hemoglobin A1c Lactic Acid Calcium 6.7 L Phosphorus 8.00 H D Magnesium Ferritin Total Bilirubin AST ALT Lactate Dehydrogenase C-Reactive Protein Albumin Triglycerides Arterial Blood Glucose Arterial Blood Ionized Calcium Urine Creatinine Coronavirus (PCR) Crossmatch 02/07/21 02/07/21 02/07/21 04:00 04:45 11:49 WBC RBC Hgb Hct MCV MCH MCHC RDW Plt Count Lymph % (Auto) Lymph # (Auto) Seg Neutrophils % Seg Neuts % (Manual) Lymphocytes % (Manual) Nucleated RBC % Seg Neutrophils # Seg Neutrophils # Man Lymphocytes # (Manual) Eosinophils # (Manual) INR D-Dimer ABG pH 7.287 L POC ABG pCO2 64.8 H POC ABG pO2 74.0 L ABG pO2 ABG HCO3 ABG O2 Saturation ABG Base Excess ABG Hemoglobin 9.1 L ABG Oxyhemoglobin 92.0 L ABG Sodium ABG Potassium 2.8 L ABG Chloride ABG Glucose 226 H Oxyhemoglobin Carboxyhemoglobin Sodium Potassium Chloride Carbon Dioxide BUN Creatinine Glucose POC Glucose 170 H Hemoglobin A1c Lactic Acid Calcium Phosphorus 5.50 H D Magnesium Ferritin Total Bilirubin AST ALT Lactate Dehydrogenase C-Reactive Protein Albumin Triglycerides Arterial Blood Glucose 226 H Arterial Blood Ionized Calcium 3.7 L Urine Creatinine Coronavirus (PCR) Crossmatch 02/07/21 02/07/21 02/07/21 13:48 17:45 23:02 WBC RBC Hgb Hct MCV MCH MCHC RDW Plt Count Lymph % (Auto) Lymph # (Auto) Seg Neutrophils % Seg Neuts % (Manual) Lymphocytes % (Manual) Nucleated RBC % Seg Neutrophils # Seg Neutrophils # Man Lymphocytes # (Manual) Eosinophils # (Manual) INR D-Dimer ABG pH POC ABG pCO2 POC ABG pO2 ABG pO2 ABG HCO3 ABG O2 Saturation ABG Base Excess ABG Hemoglobin ABG Oxyhemoglobin ABG Sodium ABG Potassium ABG Chloride ABG Glucose Oxyhemoglobin Carboxyhemoglobin Sodium 136 L Potassium 2.6 L* D Chloride 95.1 L Carbon Dioxide 33 H D BUN 30 H Creatinine 3.6 H Glucose 184 H POC Glucose 172 H 172 H Hemoglobin A1c Lactic Acid Calcium 6.9 L Phosphorus Magnesium Ferritin Total Bilirubin AST ALT Lactate Dehydrogenase C-Reactive Protein Albumin Triglycerides Arterial Blood Glucose Arterial Blood Ionized Calcium Urine Creatinine Coronavirus (PCR) Crossmatch 02/08/21 02/08/21 02/08/21 05:22 06:00 06:00 WBC RBC 2.21 L Hgb 7.2 L Hct 21.0 L MCV 95 H MCH MCHC RDW Plt Count Lymph % (Auto) Lymph # (Auto) Seg Neutrophils % Seg Neuts % (Manual) 87.0 H Lymphocytes % (Manual) 4.0 L Nucleated RBC % Seg Neutrophils # Seg Neutrophils # Man 8.5 H Lymphocytes # (Manual) 0.4 L Eosinophils # (Manual) INR D-Dimer ABG pH POC ABG pCO2 POC ABG pO2 ABG pO2 ABG HCO3 ABG O2 Saturation ABG Base Excess ABG Hemoglobin ABG Oxyhemoglobin ABG Sodium ABG Potassium ABG Chloride ABG Glucose Oxyhemoglobin Carboxyhemoglobin Sodium 136 L Potassium 2.4 L* Chloride 93.1 L Carbon Dioxide 36 H BUN 43 H Creatinine 5.4 H Glucose 167 H POC Glucose 162 H Hemoglobin A1c Lactic Acid Calcium 6.3 L Phosphorus Magnesium Ferritin Total Bilirubin AST ALT Lactate Dehydrogenase C-Reactive Protein Albumin Triglycerides Arterial Blood Glucose Arterial Blood Ionized Calcium Urine Creatinine Coronavirus (PCR) Crossmatch 02/08/21 02/08/21 02/08/21 11:44 17:53 18:56 WBC RBC Hgb Hct MCV MCH MCHC RDW Plt Count Lymph % (Auto) Lymph # (Auto) Seg Neutrophils % Seg Neuts % (Manual) Lymphocytes % (Manual) Nucleated RBC % Seg Neutrophils # Seg Neutrophils # Man Lymphocytes # (Manual) Eosinophils # (Manual) INR D-Dimer ABG pH POC ABG pCO2 POC ABG pO2 ABG pO2 ABG HCO3 ABG O2 Saturation ABG Base Excess ABG Hemoglobin ABG Oxyhemoglobin ABG Sodium ABG Potassium ABG Chloride ABG Glucose Oxyhemoglobin Carboxyhemoglobin Sodium Potassium 2.9 L* D Chloride Carbon Dioxide BUN Creatinine Glucose POC Glucose 164 H 154 H Hemoglobin A1c Lactic Acid Calcium Phosphorus Magnesium Ferritin Total Bilirubin AST ALT Lactate Dehydrogenase C-Reactive Protein Albumin Triglycerides Arterial Blood Glucose Arterial Blood Ionized Calcium Urine Creatinine Coronavirus (PCR) Crossmatch 02/08/21 02/08/21 02/09/21 23:24 23:58 03:21 WBC RBC Hgb Hct MCV MCH MCHC RDW Plt Count Lymph % (Auto) Lymph # (Auto) Seg Neutrophils % Seg Neuts % (Manual) Lymphocytes % (Manual) Nucleated RBC % Seg Neutrophils # Seg Neutrophils # Man Lymphocytes # (Manual) Eosinophils # (Manual) INR D-Dimer ABG pH 7.319 L POC ABG pCO2 63.3 H 68.3 H POC ABG pO2 71.2 L 76.5 L ABG pO2 ABG HCO3 ABG O2 Saturation ABG Base Excess ABG Hemoglobin 8.2 L 7.0 L ABG Oxyhemoglobin 91.8 L 92.2 L ABG Sodium 134.6 L 133.0 L ABG Potassium 2.3 L 3.1 L ABG Chloride 96.0 L 95.0 L ABG Glucose 184 H 154 H Oxyhemoglobin Carboxyhemoglobin Sodium Potassium Chloride Carbon Dioxide BUN Creatinine Glucose POC Glucose 152 H Hemoglobin A1c Lactic Acid Calcium Phosphorus Magnesium Ferritin Total Bilirubin AST ALT Lactate Dehydrogenase C-Reactive Protein Albumin Triglycerides Arterial Blood Glucose 184 H 154 H Arterial Blood Ionized Calcium 3.6 L 3.5 L Urine Creatinine Coronavirus (PCR) Crossmatch 02/09/21 02/09/21 02/09/21 05:10 05:10 06:04 WBC RBC 2.14 L Hgb 7.0 L Hct 20.5 L MCV 96 H MCH 33 H MCHC RDW Plt Count Lymph % (Auto) Lymph # (Auto) Seg Neutrophils % Seg Neuts % (Manual) 82.0 H Lymphocytes % (Manual) 9.0 L Nucleated RBC % 1.0 H Seg Neutrophils # Seg Neutrophils # Man 8.9 H Lymphocytes # (Manual) 1.0 L Eosinophils # (Manual) INR D-Dimer ABG pH POC ABG pCO2 POC ABG pO2 ABG pO2 ABG HCO3 ABG O2 Saturation ABG Base Excess ABG Hemoglobin ABG Oxyhemoglobin ABG Sodium ABG Potassium ABG Chloride ABG Glucose Oxyhemoglobin Carboxyhemoglobin Sodium 135 L Potassium 3.2 L Chloride 91.0 L Carbon Dioxide 32 H BUN 54 H Creatinine 6.6 H Glucose 163 H POC Glucose 149 H Hemoglobin A1c Lactic Acid Calcium 6.2 L Phosphorus Magnesium Ferritin Total Bilirubin AST ALT Lactate Dehydrogenase C-Reactive Protein Albumin Triglycerides Arterial Blood Glucose Arterial Blood Ionized Calcium Urine Creatinine Coronavirus (PCR) Crossmatch 02/09/21 02/09/21 02/09/21 12:02 13:32 13:40 WBC RBC Hgb Hct MCV MCH MCHC RDW Plt Count Lymph % (Auto) Lymph # (Auto) Seg Neutrophils % Seg Neuts % (Manual) Lymphocytes % (Manual) Nucleated RBC % Seg Neutrophils # Seg Neutrophils # Man Lymphocytes # (Manual) Eosinophils # (Manual) INR D-Dimer ABG pH POC ABG pCO2 POC ABG pO2 ABG pO2 ABG HCO3 ABG O2 Saturation ABG Base Excess ABG Hemoglobin ABG Oxyhemoglobin ABG Sodium ABG Potassium ABG Chloride ABG Glucose Oxyhemoglobin Carboxyhemoglobin Sodium Potassium Chloride Carbon Dioxide BUN Creatinine Glucose POC Glucose 147 H Hemoglobin A1c Lactic Acid Calcium Phosphorus Magnesium Ferritin Total Bilirubin AST ALT Lactate Dehydrogenase C-Reactive Protein Albumin Triglycerides 250 H Arterial Blood Glucose Arterial Blood Ionized Calcium Urine Creatinine Coronavirus (PCR) Crossmatch See Detail 02/09/21 02/09/21 02/10/21 18:06 23:42 04:00 WBC RBC Hgb Hct MCV MCH MCHC RDW Plt Count Lymph % (Auto) Lymph # (Auto) Seg Neutrophils % Seg Neuts % (Manual) Lymphocytes % (Manual) Nucleated RBC % Seg Neutrophils # Seg Neutrophils # Man Lymphocytes # (Manual) Eosinophils # (Manual) INR D-Dimer ABG pH POC ABG pCO2 65.8 H POC ABG pO2 68.0 L ABG pO2 ABG HCO3 ABG O2 Saturation ABG Base Excess ABG Hemoglobin 8.3 L ABG Oxyhemoglobin ABG Sodium 132.4 L ABG Potassium 2.9 L ABG Chloride 92.0 L ABG Glucose 174 H Oxyhemoglobin Carboxyhemoglobin Sodium Potassium Chloride Carbon Dioxide BUN Creatinine Glucose POC Glucose 152 H 147 H Hemoglobin A1c Lactic Acid Calcium Phosphorus Magnesium Ferritin Total Bilirubin AST ALT Lactate Dehydrogenase C-Reactive Protein Albumin Triglycerides Arterial Blood Glucose 174 H Arterial Blood Ionized Calcium 3.4 L Urine Creatinine Coronavirus (PCR) Crossmatch 02/10/21 02/10/21 02/10/21 05:32 11:29 14:08 WBC 12.5 H RBC 2.14 L Hgb 6.6 L Hct 20.2 L MCV MCH MCHC RDW Plt Count Lymph % (Auto) Lymph # (Auto) Seg Neutrophils % Seg Neuts % (Manual) Lymphocytes % (Manual) Nucleated RBC % Seg Neutrophils # Seg Neutrophils # Man Lymphocytes # (Manual) Eosinophils # (Manual) INR D-Dimer ABG pH POC ABG pCO2 POC ABG pO2 ABG pO2 ABG HCO3 ABG O2 Saturation ABG Base Excess ABG Hemoglobin ABG Oxyhemoglobin ABG Sodium ABG Potassium ABG Chloride ABG Glucose Oxyhemoglobin Carboxyhemoglobin Sodium Potassium Chloride Carbon Dioxide BUN Creatinine Glucose POC Glucose 167 H 147 H Hemoglobin A1c Lactic Acid Calcium Phosphorus Magnesium Ferritin Total Bilirubin AST ALT Lactate Dehydrogenase C-Reactive Protein Albumin Triglycerides Arterial Blood Glucose Arterial Blood Ionized Calcium Urine Creatinine Coronavirus (PCR) Crossmatch 02/10/21 02/10/21 02/10/21 14:08 18:11 22:32 WBC RBC Hgb 6.4 L Hct 19.1 L* MCV MCH MCHC RDW Plt Count Lymph % (Auto) Lymph # (Auto) Seg Neutrophils % Seg Neuts % (Manual) Lymphocytes % (Manual) Nucleated RBC % Seg Neutrophils # Seg Neutrophils # Man Lymphocytes # (Manual) Eosinophils # (Manual) INR D-Dimer ABG pH POC ABG pCO2 POC ABG pO2 ABG pO2 ABG HCO3 ABG O2 Saturation ABG Base Excess ABG Hemoglobin ABG Oxyhemoglobin ABG Sodium ABG Potassium ABG Chloride ABG Glucose Oxyhemoglobin Carboxyhemoglobin Sodium 136 L Potassium 2.9 L* Chloride 90.2 L Carbon Dioxide 33 H BUN 42 H Creatinine 7.5 H Glucose 155 H POC Glucose 173 H Hemoglobin A1c Lactic Acid Calcium 6.1 L Phosphorus Magnesium Ferritin Total Bilirubin AST ALT Lactate Dehydrogenase C-Reactive Protein Albumin Triglycerides Arterial Blood Glucose Arterial Blood Ionized Calcium Urine Creatinine Coronavirus (PCR) Crossmatch 02/11/21 02/11/21 02/11/21 00:28 04:05 04:30 WBC RBC Hgb Hct MCV MCH MCHC RDW Plt Count Lymph % (Auto) Lymph # (Auto) Seg Neutrophils % Seg Neuts % (Manual) Lymphocytes % (Manual) Nucleated RBC % Seg Neutrophils # Seg Neutrophils # Man Lymphocytes # (Manual) Eosinophils # (Manual) INR D-Dimer ABG pH 7.307 L POC ABG pCO2 72.2 H POC ABG pO2 72.3 L ABG pO2 ABG HCO3 ABG O2 Saturation ABG Base Excess ABG Hemoglobin 8.2 L ABG Oxyhemoglobin ABG Sodium 132.3 L ABG Potassium 3.2 L ABG Chloride 91.0 L ABG Glucose 197 H Oxyhemoglobin Carboxyhemoglobin Sodium 135 L Potassium 3.3 L Chloride 87.1 L Carbon Dioxide 36 H BUN 71 H Creatinine 7.9 H Glucose 263 H POC Glucose 192 H Hemoglobin A1c Lactic Acid Calcium 6.2 L Phosphorus Magnesium Ferritin Total Bilirubin AST ALT Lactate Dehydrogenase C-Reactive Protein Albumin Triglycerides Arterial Blood Glucose 197 H Arterial Blood Ionized Calcium 3.3 L Urine Creatinine Coronavirus (PCR) Crossmatch 02/11/21 02/11/21 02/11/21 04:30 05:47 08:27 WBC RBC 2.22 L Hgb 7.2 L Hct 21.0 L MCV MCH MCHC RDW Plt Count Lymph % (Auto) 8.7 L Lymph # (Auto) 0.9 L Seg Neutrophils % 85.5 H Seg Neuts % (Manual) Lymphocytes % (Manual) Nucleated RBC % Seg Neutrophils # 9.2 H Seg Neutrophils # Man Lymphocytes # (Manual) Eosinophils # (Manual) INR 1.17 H D-Dimer 1930.92 H ABG pH POC ABG pCO2 POC ABG pO2 ABG pO2 ABG HCO3 ABG O2 Saturation ABG Base Excess ABG Hemoglobin ABG Oxyhemoglobin ABG Sodium ABG Potassium ABG Chloride ABG Glucose Oxyhemoglobin Carboxyhemoglobin Sodium Potassium Chloride Carbon Dioxide BUN Creatinine Glucose POC Glucose 189 H Hemoglobin A1c Lactic Acid Calcium Phosphorus Magnesium Ferritin Total Bilirubin AST ALT Lactate Dehydrogenase C-Reactive Protein Albumin Triglycerides Arterial Blood Glucose Arterial Blood Ionized Calcium Urine Creatinine Coronavirus (PCR) Crossmatch 02/11/21 02/11/21 02/11/21 09:00 09:00 13:18 WBC RBC Hgb Hct MCV MCH MCHC RDW Plt Count Lymph % (Auto) Lymph # (Auto) Seg Neutrophils % Seg Neuts % (Manual) Lymphocytes % (Manual) Nucleated RBC % Seg Neutrophils # Seg Neutrophils # Man Lymphocytes # (Manual) Eosinophils # (Manual) INR D-Dimer ABG pH POC ABG pCO2 POC ABG pO2 ABG pO2 ABG HCO3 ABG O2 Saturation ABG Base Excess ABG Hemoglobin ABG Oxyhemoglobin ABG Sodium ABG Potassium ABG Chloride ABG Glucose Oxyhemoglobin Carboxyhemoglobin Sodium Potassium Chloride Carbon Dioxide BUN Creatinine Glucose 126 H POC Glucose 160 H Hemoglobin A1c Lactic Acid Calcium Phosphorus Magnesium Ferritin 1253.0 H Total Bilirubin AST ALT Lactate Dehydrogenase 649 H C-Reactive Protein 12.60 H Albumin Triglycerides Arterial Blood Glucose Arterial Blood Ionized Calcium Urine Creatinine Coronavirus (PCR) Crossmatch 02/11/21 02/11/21 02/11/21 14:30 16:59 22:34 WBC RBC Hgb 7.1 L 6.7 L Hct 20.5 L 19.9 L* MCV MCH MCHC RDW Plt Count Lymph % (Auto) Lymph # (Auto) Seg Neutrophils % Seg Neuts % (Manual) Lymphocytes % (Manual) Nucleated RBC % Seg Neutrophils # Seg Neutrophils # Man Lymphocytes # (Manual) Eosinophils # (Manual) INR D-Dimer ABG pH POC ABG pCO2 POC ABG pO2 ABG pO2 ABG HCO3 ABG O2 Saturation ABG Base Excess ABG Hemoglobin ABG Oxyhemoglobin ABG Sodium ABG Potassium ABG Chloride ABG Glucose Oxyhemoglobin Carboxyhemoglobin Sodium Potassium Chloride Carbon Dioxide BUN Creatinine Glucose POC Glucose 151 H Hemoglobin A1c Lactic Acid Calcium Phosphorus Magnesium Ferritin Total Bilirubin AST ALT Lactate Dehydrogenase C-Reactive Protein Albumin Triglycerides Arterial Blood Glucose Arterial Blood Ionized Calcium Urine Creatinine Coronavirus (PCR) Crossmatch 02/11/21 02/12/21 02/12/21 23:42 04:41 05:19 WBC RBC Hgb Hct MCV MCH MCHC RDW Plt Count Lymph % (Auto) Lymph # (Auto) Seg Neutrophils % Seg Neuts % (Manual) Lymphocytes % (Manual) Nucleated RBC % Seg Neutrophils # Seg Neutrophils # Man Lymphocytes # (Manual) Eosinophils # (Manual) INR D-Dimer ABG pH POC ABG pCO2 POC ABG pO2 ABG pO2 69.0 L ABG HCO3 32.5 H ABG O2 Saturation ABG Base Excess 7.7 H ABG Hemoglobin 5.1 L ABG Oxyhemoglobin ABG Sodium ABG Potassium ABG Chloride ABG Glucose Oxyhemoglobin 94.7 L Carboxyhemoglobin Sodium Potassium Chloride Carbon Dioxide BUN Creatinine Glucose POC Glucose 165 H 153 H Hemoglobin A1c Lactic Acid Calcium Phosphorus Magnesium Ferritin Total Bilirubin AST ALT Lactate Dehydrogenase C-Reactive Protein Albumin Triglycerides Arterial Blood Glucose Arterial Blood Ionized Calcium Urine Creatinine Coronavirus (PCR) Crossmatch 02/12/21 02/12/21 02/12/21 06:35 06:35 08:40 WBC RBC 2.21 L Hgb 7.2 L Hct 20.7 L MCV MCH 33 H MCHC 35 H RDW Plt Count Lymph % (Auto) Lymph # (Auto) Seg Neutrophils % Seg Neuts % (Manual) Lymphocytes % (Manual) Nucleated RBC % Seg Neutrophils # Seg Neutrophils # Man Lymphocytes # (Manual) Eosinophils # (Manual) INR D-Dimer ABG pH POC ABG pCO2 POC ABG pO2 ABG pO2 ABG HCO3 ABG O2 Saturation ABG Base Excess ABG Hemoglobin ABG Oxyhemoglobin ABG Sodium ABG Potassium ABG Chloride ABG Glucose Oxyhemoglobin Carboxyhemoglobin Sodium 135 L Potassium 3.4 L Chloride 91.8 L Carbon Dioxide 36 H BUN 57 H Creatinine 6.8 H Glucose 163 H POC Glucose Hemoglobin A1c Lactic Acid Calcium 7.0 L Phosphorus Magnesium 1.60 L Ferritin Total Bilirubin AST ALT Lactate Dehydrogenase C-Reactive Protein Albumin Triglycerides Arterial Blood Glucose Arterial Blood Ionized Calcium Urine Creatinine Coronavirus (PCR) Crossmatch 02/12/21 02/12/21 02/12/21 10:45 12:04 17:19 WBC RBC Hgb Hct MCV MCH MCHC RDW Plt Count Lymph % (Auto) Lymph # (Auto) Seg Neutrophils % Seg Neuts % (Manual) Lymphocytes % (Manual) Nucleated RBC % Seg Neutrophils # Seg Neutrophils # Man Lymphocytes # (Manual) Eosinophils # (Manual) INR D-Dimer ABG pH POC ABG pCO2 POC ABG pO2 ABG pO2 ABG HCO3 ABG O2 Saturation ABG Base Excess ABG Hemoglobin ABG Oxyhemoglobin ABG Sodium ABG Potassium ABG Chloride ABG Glucose Oxyhemoglobin Carboxyhemoglobin Sodium Potassium Chloride Carbon Dioxide BUN Creatinine Glucose POC Glucose 165 H 165 H Hemoglobin A1c Lactic Acid Calcium Phosphorus Magnesium Ferritin Total Bilirubin AST ALT Lactate Dehydrogenase C-Reactive Protein Albumin Triglycerides 182 H Arterial Blood Glucose Arterial Blood Ionized Calcium Urine Creatinine Coronavirus (PCR) Crossmatch 02/12/21 02/13/21 02/13/21 23:18 05:00 05:36 WBC RBC Hgb Hct MCV MCH MCHC RDW Plt Count Lymph % (Auto) Lymph # (Auto) Seg Neutrophils % Seg Neuts % (Manual) Lymphocytes % (Manual) Nucleated RBC % Seg Neutrophils # Seg Neutrophils # Man Lymphocytes # (Manual) Eosinophils # (Manual) INR D-Dimer ABG pH POC ABG pCO2 60.8 H POC ABG pO2 76.4 L ABG pO2 ABG HCO3 ABG O2 Saturation ABG Base Excess ABG Hemoglobin 7.4 L ABG Oxyhemoglobin ABG Sodium 133.2 L ABG Potassium 3.3 L ABG Chloride 96.0 L ABG Glucose 168 H Oxyhemoglobin Carboxyhemoglobin Sodium Potassium Chloride Carbon Dioxide BUN Creatinine Glucose POC Glucose 163 H 151 H Hemoglobin A1c Lactic Acid Calcium Phosphorus Magnesium Ferritin Total Bilirubin AST ALT Lactate Dehydrogenase C-Reactive Protein Albumin Triglycerides Arterial Blood Glucose 168 H Arterial Blood Ionized Calcium 4.3 L Urine Creatinine Coronavirus (PCR) Crossmatch 02/13/21 02/13/21 02/13/21 06:40 06:40 06:40 WBC RBC 2.19 L Hgb 7.0 L Hct 20.8 L MCV 95 H MCH MCHC RDW Plt Count Lymph % (Auto) Lymph # (Auto) Seg Neutrophils % Seg Neuts % (Manual) Lymphocytes % (Manual) Nucleated RBC % Seg Neutrophils # Seg Neutrophils # Man Lymphocytes # (Manual) Eosinophils # (Manual) INR D-Dimer ABG pH POC ABG pCO2 POC ABG pO2 ABG pO2 ABG HCO3 ABG O2 Saturation ABG Base Excess ABG Hemoglobin ABG Oxyhemoglobin ABG Sodium ABG Potassium ABG Chloride ABG Glucose Oxyhemoglobin Carboxyhemoglobin Sodium 135 L Potassium 3.4 L Chloride 93.0 L Carbon Dioxide 32 H BUN 46 H Creatinine 5.8 H Glucose 148 H POC Glucose Hemoglobin A1c Lactic Acid Calcium 7.9 L Phosphorus Magnesium Ferritin Total Bilirubin AST ALT Lactate Dehydrogenase C-Reactive Protein 16.80 H Albumin Triglycerides Arterial Blood Glucose Arterial Blood Ionized Calcium Urine Creatinine Coronavirus (PCR) Crossmatch 02/13/21 02/13/21 02/13/21 06:40 07:38 07:38 WBC RBC Hgb Hct MCV MCH MCHC RDW Plt Count Lymph % (Auto) Lymph # (Auto) Seg Neutrophils % Seg Neuts % (Manual) Lymphocytes % (Manual) Nucleated RBC % Seg Neutrophils # Seg Neutrophils # Man Lymphocytes # (Manual) Eosinophils # (Manual) INR D-Dimer 1722.16 H ABG pH POC ABG pCO2 POC ABG pO2 ABG pO2 ABG HCO3 ABG O2 Saturation ABG Base Excess ABG Hemoglobin ABG Oxyhemoglobin ABG Sodium ABG Potassium ABG Chloride ABG Glucose Oxyhemoglobin Carboxyhemoglobin Sodium Potassium Chloride Carbon Dioxide BUN Creatinine Glucose POC Glucose Hemoglobin A1c Lactic Acid Calcium Phosphorus Magnesium 1.60 L Ferritin 976.5 H Total Bilirubin AST ALT Lactate Dehydrogenase C-Reactive Protein Albumin Triglycerides Arterial Blood Glucose Arterial Blood Ionized Calcium Urine Creatinine Coronavirus (PCR) Crossmatch
--- NOTE | 2021-02-13 12:11 | Progress Note ---
Assessment and Plan Acute Hypoxic respiratory failure COVID-19 PNA Severe sepsis with septic shock Acute kidney injury secondary to ATN Hyperkalemia Hypernatremia DM2 on insulin Anemia Plan: will cont daily HD for now primarily for UF Initiated on HD on 02/03/21 S/P Right IJ Trialysis dialysis catheter placement by Dr Reddy Strict I&O's monitoring, no urine output recorded Renally dose medications Assess dialysis needs daily Monitor for renal recovery Subjective Date of service: 02/13/21 Principal diagnosis: DEISI Interval history: tolerating HD Objective - Vital Signs Vital signs: Vital Signs - 12hr 02/13/21 02/13/21 02/13/21 00:15 00:30 00:45 Temperature Pulse Rate 89 88 87 Pulse Rate [ From Monitor] Respiratory 34 H 34 H 34 H Rate Blood Pressure 108/59 104/56 99/56 O2 Sat by Pulse 97 97 96 Oximetry O2 Sat by Pulse Oximetry [ Anterior Bilateral Throughout] 02/13/21 02/13/21 02/13/21 01:00 01:15 01:30 Temperature Pulse Rate 87 88 88 Pulse Rate [ From Monitor] Respiratory 34 H 34 H 34 H Rate Blood Pressure 102/57 104/57 108/60 O2 Sat by Pulse 97 97 97 Oximetry O2 Sat by Pulse Oximetry [ Anterior Bilateral Throughout] 02/13/21 02/13/21 02/13/21 01:45 02:00 02:15 Temperature Pulse Rate 89 94 H 94 H Pulse Rate [ From Monitor] Respiratory 34 H 34 H 34 H Rate Blood Pressure 107/60 115/60 108/59 O2 Sat by Pulse 97 96 97 Oximetry O2 Sat by Pulse Oximetry [ Anterior Bilateral Throughout] 02/13/21 02/13/21 02/13/21 02:30 02:45 03:00 Temperature Pulse Rate 95 H 93 H 92 H Pulse Rate [ From Monitor] Respiratory 34 H 34 H 35 H Rate Blood Pressure 111/58 107/57 108/59 O2 Sat by Pulse 96 96 96 Oximetry O2 Sat by Pulse Oximetry [ Anterior Bilateral Throughout] 02/13/21 02/13/21 02/13/21 03:15 03:30 03:45 Temperature Pulse Rate 89 86 83 Pulse Rate [ From Monitor] Respiratory 34 H 34 H 34 H Rate Blood Pressure 102/57 103/56 108/54 O2 Sat by Pulse 95 97 97 Oximetry O2 Sat by Pulse Oximetry [ Anterior Bilateral Throughout] 02/13/21 02/13/21 02/13/21 04:00 04:15 04:30 Temperature 100.0 F H Pulse Rate 81 80 79 Pulse Rate [ From Monitor] Respiratory 34 H 34 H 34 H Rate Blood Pressure 103/56 102/56 102/55 O2 Sat by Pulse 97 97 96 Oximetry O2 Sat by Pulse Oximetry [ Anterior Bilateral Throughout] 02/13/21 02/13/21 02/13/21 04:45 05:00 05:06 Temperature Pulse Rate 80 80 82 Pulse Rate [ From Monitor] Respiratory 34 H 34 H Rate Blood Pressure 100/56 101/55 108/54 O2 Sat by Pulse 97 97 98 Oximetry O2 Sat by Pulse Oximetry [ Anterior Bilateral Throughout] 02/13/21 02/13/21 02/13/21 05:15 05:30 05:45 Temperature Pulse Rate 79 79 79 Pulse Rate [ From Monitor] Respiratory 34 H 34 H 34 H Rate Blood Pressure 98/57 100/56 100/56 O2 Sat by Pulse 98 98 98 Oximetry O2 Sat by Pulse Oximetry [ Anterior Bilateral Throughout] 02/13/21 02/13/21 02/13/21 06:00 06:15 06:30 Temperature Pulse Rate 78 79 78 Pulse Rate [ From Monitor] Respiratory 34 H 34 H 34 H Rate Blood Pressure 100/56 98/56 97/57 O2 Sat by Pulse 98 98 98 Oximetry O2 Sat by Pulse Oximetry [ Anterior Bilateral Throughout] 02/13/21 02/13/21 02/13/21 06:45 07:00 07:15 Temperature Pulse Rate 79 79 79 Pulse Rate [ From Monitor] Respiratory 34 H 34 H 34 H Rate Blood Pressure 97/58 98/58 98/57 O2 Sat by Pulse 98 97 98 Oximetry O2 Sat by Pulse Oximetry [ Anterior Bilateral Throughout] 02/13/21 02/13/21 02/13/21 07:30 07:45 07:49 Temperature 98.5 F Pulse Rate 79 79 Pulse Rate [ From Monitor] Respiratory 34 H 34 H Rate Blood Pressure 99/56 98/54 O2 Sat by Pulse 97 97 Oximetry O2 Sat by Pulse Oximetry [ Anterior Bilateral Throughout] 02/13/21 02/13/21 02/13/21 08:00 08:15 08:30 Temperature 98.5 F Pulse Rate 79 78 79 Pulse Rate [ 79 From Monitor] Respiratory 34 H 34 H 34 H Rate Blood Pressure 96/56 95/55 96/56 O2 Sat by Pulse 97 97 97 Oximetry O2 Sat by Pulse Oximetry [ Anterior Bilateral Throughout] 02/13/21 02/13/21 02/13/21 08:45 09:00 09:15 Temperature 100.0 F H Pulse Rate 79 82 87 Pulse Rate [ From Monitor] Respiratory 34 H 33 H 35 H Rate Blood Pressure 96/56 93/60 111/66 O2 Sat by Pulse 97 95 95 Oximetry O2 Sat by Pulse 97 Oximetry [ Anterior Bilateral Throughout] 02/13/21 02/13/21 02/13/21 09:20 09:30 09:45 Temperature Pulse Rate 82 92 H 112 H Pulse Rate [ From Monitor] Respiratory 30 H Rate Blood Pressure 93/60 111/66 189/104 O2 Sat by Pulse 96 Oximetry O2 Sat by Pulse Oximetry [ Anterior Bilateral Throughout] 02/13/21 02/13/21 02/13/21 09:46 10:00 10:15 Temperature Pulse Rate 108 H 114 H 119 H Pulse Rate [ From Monitor] Respiratory 30 H 29 H 31 H Rate Blood Pressure 190/91 206/100 217/103 O2 Sat by Pulse 93 Oximetry O2 Sat by Pulse Oximetry [ Anterior Bilateral Throughout] 02/13/21 02/13/21 02/13/21 10:30 10:35 10:45 Temperature Pulse Rate 123 H 126 H 128 H Pulse Rate [ From Monitor] Respiratory 30 H 30 H Rate Blood Pressure 227/95 189/89 179/88 O2 Sat by Pulse 94 93 Oximetry O2 Sat by Pulse Oximetry [ Anterior Bilateral Throughout] 02/13/21 02/13/21 02/13/21 11:00 11:15 11:30 Temperature Pulse Rate 129 H 130 H 130 H Pulse Rate [ From Monitor] Respiratory 29 H 29 H 32 H Rate Blood Pressure 173/88 163/87 166/87 O2 Sat by Pulse 93 93 94 Oximetry O2 Sat by Pulse Oximetry [ Anterior Bilateral Throughout] 02/13/21 02/13/21 11:45 12:00 Temperature Pulse Rate 131 H 130 H Pulse Rate [ From Monitor] Respiratory 30 H 29 H Rate Blood Pressure 166/82 155/85 O2 Sat by Pulse 90 90 Oximetry O2 Sat by Pulse Oximetry [ Anterior Bilateral Throughout] - Lab 02/13/21 06:40 02/13/21 06:40 Most recent lab results ABG pH 7.374 (7.320-7.450) 02/13/21 05:00 ABG pCO2 51.2 mm Hg 02/12/21 04:41 ABG pO2 69.0 mm Hg (80.0-90.0) L 02/12/21 04:41 ABG HCO3 32.5 mmol/L (20.0-26.0) H 02/12/21 04:41 ABG O2 Saturation 95.2 (0-100) 02/13/21 05:00 Calcium 7.9 mg/dL (8.4-10.2) L 02/13/21 06:40 Phosphorus 3.90 mg/dL (2.5-4.5) 02/13/21 06:40 Magnesium 1.60 mg/dL (1.7-2.3) L 02/13/21 06:40 Urine Creatinine 53.0 mg/dL (0.1-20.0) H 01/30/21 12:00 Urine Sodium 28 mmol/L 01/22/21 22:39 Medications & Allergies - Medications Allergies/Adverse Reactions: Allergies No Known Allergies Allergy (Unverified 03/12/20 13:41) Home Medications: Home Medications Medication Instructions Recorded Confirmed Last Taken Type Clindamycin [Clindamycin CAP] 300 mg PO Q8H #21 cap 03/12/20 Unknown Rx Insulin NPH/Regular [Novolin 70/30] 18 unit SUB-Q TIDAC #1 vial 03/12/20 Unknown Rx Syringe-Needle,Insulin,0.5 ml 1 box MC TID #1 box 03/12/20 Unknown Rx [Insulin Syringe/Needle 0.5 ML] Active Medications: Generic Name Dose Route Start Last Admin Trade Name Freq PRN Reason Stop Dose Admin Acetaminophen 650 mg 01/23/21 02:25 02/11/21 18:20 Acetaminophen 650 Mg Rect Supp NE 650 mg Q4H PRN Administration Pain, Mild (1-3) Acetaminophen 650 mg 01/24/21 12:58 02/11/21 04:09 Acetaminophen 325 Mg/10.15 Ml Oral Liqd Unit Dose FEEDTUBE 650 mg Q6H PRN Administration Pain, Mild (1-3) Lipase/Protease/Amylase 1 each 01/26/21 14:25 Lipase 10,500/Protease 25,000/Amylase 43,750 (Units) Dr Cap FEEDTUBE PRN PRN For Clogged Feeding Tube Dextrose 50 ml 01/27/21 07:24 Dextrose 50% In Water (25gm) 50 Ml Syringe IV Q30MIN PRN Hypoglycemia Protocol Enoxaparin Sodium 120 mg 01/26/21 11:00 02/13/21 09:27 Enoxaparin 120 Mg/0.8 Ml Inj SUB-Q 120 mg Q24HR CECE Administration Famotidine 20 mg 02/10/21 10:00 02/13/21 09:27 Famotidine 20 Mg Tab PO 20 mg DAILY CECE Administration Fentanyl 50 mcg 01/22/21 22:39 02/10/21 13:46 Fentanyl 100 Mcg/2 Ml Inj IV 50 mcg Q10MIN PRN Administration ANALGESIA Heparin Sodium (Porcine) 2,000 unit 02/11/21 09:38 Heparin 10,000 Units/10 Ml Vial IV SAGRARIO PRN hemodialysis Hydrophilic Ointment 1 applic 01/22/21 22:39 Lip Therapy Vaseline TP Q2HR PRN Dry Lips Fentanyl Citrate 2,000 mcg in 100 mls @ 6.124 mls/hr 01/22/21 23:00 02/13/21 09:48 Fentanyl Drip Premix IV 4 mcg/kg/hr TITR CECE 24.494 mls/hr Titration Protocol 1 MCG/KG/HR Propofol 1,000 mg in 100 mls @ 3.674 mls/hr 01/22/21 23:45 02/06/21 18:37 Diprivan 10 Mg/Ml IV 0 mcg/kg/min TITR CECE 0 mls/hr Titration Protocol 5 MCG/KG/MIN Norepinephrine 4 mg in 250 mls @ 7.5 mls/hr 01/28/21 14:00 02/08/21 06:08 Levophed Drip 4 Mg/Ns 250 Ml IV 0 mcg/min TITR CECE 0 mls/hr Titration Protocol 2 MCG/MIN Dexmedetomidine HCl 1,000 mcg/ 260 mls @ 6.368 mls/hr 01/30/21 20:00 02/13/21 07:53 Sodium Chloride IV 1.4 mcg/kg/hr TITRATE CECE 44.579 mls/hr Administration Protocol 0.2 MCG/KG/HR Sodium Bicarbonate 150 meq/ 1,150 mls @ 100 mls/hr 02/06/21 11:30 02/13/21 07:53 Dextrose IV 100 mls/hr DIRECT CECE Administration Lorazepam 100 mg/ Sodium 100 mls @ 1 mls/hr 02/06/21 19:00 02/12/21 21:01 Chloride/ Miscellaneous IV 1 mg/hr Information TITR CECE 1 mls/hr Administration Protocol 1 MG/HR Sodium Chloride 100 mls @ 999 mls/hr 02/11/21 09:38 Nacl 0.9% IV SAGRARIO PRN Hypotension Multi-Ingred Cream/Lotion/Oil/Oint 1 applic 01/22/21 22:39 02/01/21 09:33 Mineral Oil/Petrolatum, White Ophth Oint 3.5 Gm OU 1 applic Q4HR PRN Administration Dry Eye(s) Ondansetron HCl 4 mg 01/23/21 02:17 Ondansetron 4 Mg/2 Ml Inj IV Q8H PRN Nausea And Vomiting Simple Syrup 15 ml 01/26/21 14:25 Simple Syrup 15 Ml FEEDTUBE PRN PRN Hypoglycemia Simple Syrup 30 ml 01/26/21 14:25 Simple Syrup 15 Ml FEEDTUBE PRN PRN Hypoglycemia Sodium Bicarbonate 325 mg 01/26/21 14:25 Sodium Bicarbonate 325 Mg Tab FEEDTUBE PRN PRN For Clogged Feeding Tube
--- NOTE | 2021-02-13 15:09 | Progress Note ---
Assessment and Plan Cultures: Blood culture 02/08/2021 no growth today SARS CoV2 PCR positive 01/22/2021 respiratory culture: Usual respiratory dillon Blood Culture 01/30/2021 no growth today Urine culture 01/30/2021 no growth today Sputum culture 01/30/2021 usual respiratory dillon Blood culture 02/04/2021 coag negative staph 2 of 4 Urine culture 02/04/2021 no growth Sputum culture 02/04/2021 Maegan albicans Assessment: 60 year old male with history of morbid obesity admitted on 01/22/2021 secondary to 3-day history of worsening shortness of breath associated with fever, chills, loss of smell and taste: #Severe sepsis with septic shock: remains with intermittent high fever now off pressors. Right IJ removed. Likely due to GPC bacteremia. Initial sepsis due to bilateral pneumonia. Urinalysis negative. Procalcitonin elevated in the setting of DEISI. Leg US no DVT. #Coag-neg Staph bacteremia: new blood culture on 02/04/2021 with GPC 2 of 4 bottles, possible real. Completed treatment 7 days of vancomycin. #Critical COVID-19 pneumonia: Patient remains intubated. Chest x-ray with bilateral airspace disease. Inflammatory markers worsening, D-dimer>10K. CRP 4 0-->23. Completed remdesivir. #Acute respiratory failure: Remains on the ventilator #Transaminitis: Likely secondary to COVID-19. #DEISI: Worsening, On hemodialysis Recommendations: -Completed vancomycin. -Monitor fever Poor prognosis Dr. Byrne covering this weekend Eva Walker MD [facility] O: [phone] F: [phone] Subjective Date of service: 02/13/21 Principal diagnosis: DEISI Interval history: Afebrile, normal white count. Remains mechanically ventilated. Receiving hemodialysis today. Objective - Exam Narrative Exam: Physical exam deferred to reduce risk of transmission of COVID-19. Please refer to primary team's note. - Constitutional Vitals: Vital Signs Temp Pulse Resp BP Pulse Ox 99.8 F H 129 H 30 H 146/92 94 02/13/21 12:46 02/13/21 14:30 02/13/21 14:30 02/13/21 14:30 02/13/21 14:30 Temperature -Last 24 Hours Temperature 99.8 F Temperature 99.8 F Temperature 100.0 F Temperature 98.5 F Temperature 98.5 F Temperature 100.0 F Temperature 98.3 F Temperature 98.4 F Temperature 98.1 F Temperature 99 F - Labs CBC & Chem 7: 02/13/21 06:40 02/13/21 06:40 Labs: Abnormal lab results 02/12/21 02/12/21 02/13/21 Range/Units 17:19 23:18 05:00 RBC (3.65-5.03) M/mm3 Hgb (11.8-15.2) gm/dl Hct (35.5-45.6) % MCV (84-94) fl D-Dimer (0-234) ng/mlDDU POC ABG pCO2 60.8 H (32.0-48.0) mmHg POC ABG pO2 76.4 L (83-108) mmHg ABG Hemoglobin 7.4 L (12.0-17.5) ABG Sodium 133.2 L (136.0-145.0) mmol/L ABG Potassium 3.3 L (3.40-4.50) mmol/L ABG Chloride 96.0 L (98-107) mmol/L ABG Glucose 168 H (65-95) mg/dL Sodium (137-145) mmol/L Potassium (3.6-5.0) mmol/L Chloride (98-107) mmol/L Carbon Dioxide (22-30) mmol/L BUN (9-20) mg/dL Creatinine (0.8-1.3) mg/dL Glucose (75-100) mg/dL POC Glucose 165 H 163 H (70-105) mg/dL Calcium (8.4-10.2) mg/dL Magnesium (1.7-2.3) mg/dL Ferritin (30.0-300.0) ng/mL C-Reactive Protein (0.00-1.30) mg/dL Arterial Blood Glucose 168 H (65-95) mg/dL Arterial Blood Ionized Calcium 4.3 L (4.6-5.3) mg/dL 02/13/21 02/13/21 02/13/21 Range/Units 05:36 06:40 06:40 RBC (3.65-5.03) M/mm3 Hgb (11.8-15.2) gm/dl Hct (35.5-45.6) % MCV (84-94) fl D-Dimer (0-234) ng/mlDDU POC ABG pCO2 (32.0-48.0) mmHg POC ABG pO2 (83-108) mmHg ABG Hemoglobin (12.0-17.5) ABG Sodium (136.0-145.0) mmol/L ABG Potassium (3.40-4.50) mmol/L ABG Chloride (98-107) mmol/L ABG Glucose (65-95) mg/dL Sodium 135 L (137-145) mmol/L Potassium 3.4 L (3.6-5.0) mmol/L Chloride 93.0 L (98-107) mmol/L Carbon Dioxide 32 H (22-30) mmol/L BUN 46 H (9-20) mg/dL Creatinine 5.8 H (0.8-1.3) mg/dL Glucose 148 H (75-100) mg/dL POC Glucose 151 H (70-105) mg/dL Calcium 7.9 L (8.4-10.2) mg/dL Magnesium (1.7-2.3) mg/dL Ferritin (30.0-300.0) ng/mL C-Reactive Protein 16.80 H (0.00-1.30) mg/dL Arterial Blood Glucose (65-95) mg/dL Arterial Blood Ionized Calcium (4.6-5.3) mg/dL 02/13/21 02/13/21 02/13/21 Range/Units 06:40 06:40 07:38 RBC 2.19 L (3.65-5.03) M/mm3 Hgb 7.0 L (11.8-15.2) gm/dl Hct 20.8 L (35.5-45.6) % MCV 95 H (84-94) fl D-Dimer 1722.16 H (0-234) ng/mlDDU POC ABG pCO2 (32.0-48.0) mmHg POC ABG pO2 (83-108) mmHg ABG Hemoglobin (12.0-17.5) ABG Sodium (136.0-145.0) mmol/L ABG Potassium (3.40-4.50) mmol/L ABG Chloride (98-107) mmol/L ABG Glucose (65-95) mg/dL Sodium (137-145) mmol/L Potassium (3.6-5.0) mmol/L Chloride (98-107) mmol/L Carbon Dioxide (22-30) mmol/L BUN (9-20) mg/dL Creatinine (0.8-1.3) mg/dL Glucose (75-100) mg/dL POC Glucose (70-105) mg/dL Calcium (8.4-10.2) mg/dL Magnesium 1.60 L (1.7-2.3) mg/dL Ferritin (30.0-300.0) ng/mL C-Reactive Protein (0.00-1.30) mg/dL Arterial Blood Glucose (65-95) mg/dL Arterial Blood Ionized Calcium (4.6-5.3) mg/dL 02/13/21 02/13/21 Range/Units 07:38 12:24 RBC (3.65-5.03) M/mm3 Hgb (11.8-15.2) gm/dl Hct (35.5-45.6) % MCV (84-94) fl D-Dimer (0-234) ng/mlDDU POC ABG pCO2 (32.0-48.0) mmHg POC ABG pO2 (83-108) mmHg ABG Hemoglobin (12.0-17.5) ABG Sodium (136.0-145.0) mmol/L ABG Potassium (3.40-4.50) mmol/L ABG Chloride (98-107) mmol/L ABG Glucose (65-95) mg/dL Sodium (137-145) mmol/L Potassium (3.6-5.0) mmol/L Chloride (98-107) mmol/L Carbon Dioxide (22-30) mmol/L BUN (9-20) mg/dL Creatinine (0.8-1.3) mg/dL Glucose (75-100) mg/dL POC Glucose 141 H (70-105) mg/dL Calcium (8.4-10.2) mg/dL Magnesium (1.7-2.3) mg/dL Ferritin 976.5 H (30.0-300.0) ng/mL C-Reactive Protein (0.00-1.30) mg/dL Arterial Blood Glucose (65-95) mg/dL Arterial Blood Ionized Calcium (4.6-5.3) mg/dL
--- NOTE | 2021-02-13 16:32 | Progress Note ---
<BRENDA MORALESLourdes - Last Filed: 02/13/21 16:35> Assessment and Plan Assessment and plan: This is a 60-year-old male with diabetes mellitus, hypertension, hyperlipidemia, chronic renal insufficiency who was admitted on 01/23 as a COVID-19 PUI with Sepsis, COVID-19 pneumonia, coag negative staph bacteremia, acute hypoxic r espiratory failure, and acute kidney injury. Sepsis COVID-19 pneumonia Coag-neg Staph bacteremia Acute hypoxic respiratory failure Acute kidney injury, HD initiated 02/03 Hyponatremia Hypokalemia Hypochloremia Metabolic alkalosis Diabetes mellitus Hypertension Hyperlipidemia Chronic renal insufficiency Elevated D-dimer -CCM, nephrology, infectious disease, GI consulted, appreciate recommendations -Antibiotic therapy -COVID-19 PCR positive, Pneumonia on CXR -Steroid therapy, s/p remdesivir -Mechanical ventilation, wean as tolerated -VAP bundle -HD per nephrology -Trend BMP, CBC -Bilateral lower extremity and upper extremity Doppler ultrasound negative for DVT/SVT -Therapeutic Lovenox discontinued on 02/13 due to positive occult -SSI and Long-acting insulin -Accu-Cheks every 6 while on tube feedings -Hold home antihypertensive regimen for now as he is still needing vasopressor support -Blood pressure monitoring per protocol -S/p NaHCO3 gtt -Sedated with Precedex, propofol fentanyl DVT/GI prophylaxis: SCDs to bilateral lower extremities while in bed, PPI Dispo: ICU The high probability of a clinically significant, sudden or life threatening deterioration of the [multi] system(s) required my full and direct attention, intervention and personal management. The aggregate critical care time was [32] minutes. This time is in addition to time spent performing reported procedures b ut includes the following: [x] Data Review and interpretation [x] Patient assessment and monitoring of vital signs [x] Documentation [x] Medication orders and management History Interval history: This is a 60-year-old male with diabetes mellitus, hypertension, hyperlipidemia, chronic renal insufficiency presents to the emergency department on 01/23 with shortness of breath, fevers chills, loss of smell and taste and body aches for the past 3 days via EMS. Per EMS patient's oxygen saturation on room air was 50% and after being placed on nonrebreather it increased 75%. Upon arrival to the emergency department patient was being bagged by EMS. In the emergency room patient was intubated due to severe hypoxia, increased work of breathing and le thargy. Patient was sedated on propofol and fentanyl. Patient presented with fever, tachycardia, tachypnea and acute hypoxic respiratory failure with PNA on CXR meeting Sepsis criteria. Lab work in the emergency department revealed hyponatremia, hypokalemia, hypochloremia, elevated CR/BUN and CXR showed bilateral pneumonia. Patient was admitted to the hospital service as a COVID-19 PUI with consults to infectious disease, nephrology and critical care medicine. 01/24/2021: Patient is intubated and sedated, patient is positive for COVID-19 infection. ID was consulted and put on dexamethasone and remdesivir. Patient has DEISI and nephrology is following. Creatinine stable, patient is urinating. Discussed with nephrology and he is okay with remdesivir. Pulmonary critical care is following for his vent setting. PEEP of 8 and FiO2 of 85%. Patient was alert and off sedatives. 01/25/2021; patient is intubated and on mechanical ventilation. Continue with treatment of Covid. Nephrology and ID is following. Pulmonary is following for vent management 01/26: Remains on mechanical ventilation and [facility] increased his PEEP. [facility] has ordered Precedex for sedation. Possibly need to prone this p.m. No acute events reported overnight. This morning his D-dimer is greater than 10,000 and we have started him on Lovenox 120 mg daily. Nutrition has been consulted for initiation of tube feedings. Patient remains sedated on propofol 40 and fentanyl for the time my examination this morning. 01/27: Continue Lovenox, remdesivir and empiric antibiotics. Patient had a T-max of 101 overnight. The time of examination patient is on CMV 500/18/14/0.61. Kidney function slightly worsened. Sedated on fentanyl ground-level fall and Precedex. Nephrology has increased IV fluids to 100 ml/hr. Continue to trend BMP and CBC. Sedation vacation attempt by RN this AM. 01/28: Patient completed antibiotics today [facility] will paralyze patient and increase sedation. PICC line ordered for possible vasopressor therapy need. Patient's D-dimer remains greater than 10,000 and he still has hyperchloremia. Patient's kidney function has improved today. May need to prone the patient if no improvement in oxygenation is noted in the next 24 hours. The time of my examination patient is sedated with propofol, fentanyl and Precedex and is on assist control 500/18/16/0.80 hypoxic on ABG on 60% FiO2. 01/29: Patient was started on Nimbex yesterday and his ABG this morning showed respiratory acidosis with hypercapnia and his respiratory rate was increased. We will obtain a repeat ABG this afternoon. This morning patient is hypernatremic, hyperkalemic and hyperchloremic. His potassium has been correc zayda with the management and will obtain repeat BMP tomorrow. His kidney functions have remained stable and we will await nephrology's input. No acute events reported overnight. This morning the time my examination patient sedated with propofol, Precedex and fentanyl and paralyzed with Nimbex. He is on assist control 500/24/16 0.80. 01/30: This morning patient is hypokalemic again and was given Kayexalate. Patient has hypernatremia and hyper chloremia and his renal function is slightly worse after receiving Lasix yesterday. His D-dimer remains greater than 10,000 and he is still on a paralytic. Patient is sedated on Precedex, fentanyl, propofol. Mechanical ventilation settings seven-point //28. [facility] has decided to continue paralytics for 48 more hours and will attempt proning the patient. Increased free water flushes 300 cc every 4 hours. Patient states has restarted his antibiotics cefepime and vancomycin and recultured. 01/31/21 Hyperkalemia, Treated 02/01/21 Hyperkalemia, Treated 02/02: Patient's kidney function continues to worsen and a stat BMP this morning shows BUN/creatinine 20/6.1 and he remains hypocalcemic and hypernatremic, hypokalemic and hypochloremic. Patient received 2 g of calcium gluconate and Kayexalate and his repeat potassium was 4.3 this afternoon. He remains antibiotic therapy and steroids. Nephrology has placed the patient on bicarb drip given metabolic acidosis and has decided to hold off hemodialysis till tomorrow.The time my examination patient is sedated on fentanyl, Precedex and on assist control 500/20/12/0.70. s/p paralytic. 02/03: Today patient's ABG shows respiratory acidosis however it is improving, hypernatremia, hyperchloremia, metabolic acidosis on BMP, worsening kidney function BUN/creatinine 130/9.2 with hyperphosphatemia. Patient received a Vas- Cath to his right IJ for initiation of dialysis. At the time of my examination patient remains sedated on fentanyl, propofol and Precedex with vasopressor support with Levophed at 2. 02/04: At the time of examination patient was on assist control tidal volume 500, rate 40, PEEP of 12, FiO2 85%. Patient had a T-max of 100.9 and infectious disease has stopped his vancomycin given negative MRSA. This afternoon patient respiked his temperature and was pancultured again. Patient was started on hemodialysis yesterday and will receive HD again today. Patient is sedated on Precedex, propofol, fentanyl and remains on Levophed. He is on assist control tidal volume 500, rate of 30, PEEP of 12, FiO2 of 85%. Patient still has some respiratory acidosis however his hypernatremia and hyperchloremia have improved and his metabolic acidosis has resolved. Patient will receive hemodialysis today 02/05: Patient continues to have low-grade fever temp this morning time examina tion he was on assist control tidal volume 500, and sedated on propofol/fentanyl/Precedex and is on Levophed. Hemodialysis per nephrology. Antibiotics per ID. Patient's blood culture from 02/04 grew gram-positive cocci in clusters in 1/2 bottles and he was started on vancomycin. 02/06: Patients ABG showed respiratory acidosis and the tracings were changed however a repeat ABG showed showed acidosis.[facility] will start a bicarb drip after giving 2 amps of bicarb push. Yesterday patient blood cultures grew gram- positive cocci and he was started on vancomycin. At the time my examination patient was on assist control tidal volume 550, rate 34, PEEP 16, FiO2 90% and sedated on fentanyl, Precedex, propofol elevated pressure support with Levophed. Bilateral lower extremity Doppler ultrasounds done yesterday showed no evidence of DVT/SVT. 02/07/2021; patient is still on the vent with PEEP of 16 and FiO2 of 90%, sedated with fentanyl Precedex and propofol. Patient still requiring Levophed. Maria T ent was sedated yesterday and was given bicarb push. Blood culture grew gram- positive cocci in clusters and he is on vancomycin, will follow identification. 02/08/2021;patient is still on the vent with PEEP of 16 and FiO2 of 90%, sedated with fentanyl Precedex and propofol. Patient still requiring Levophed. Patient was sedated yesterday and was given bicarb push. Blood culture grew gram-positive cocci in clusters and he is on vancomycin, will follow identification. Patient is currently on dialysis. Patient is anemic transfuse if hemoglobin is below 7. 02/09: This morning patient has slight hypokalemia, hypochorlemia, hyponatremia and metabolic alkalosis. [facility] will continue bicarb gtt given that the patient does not have HD access at this time. We will replete the potassium and recheck BMP in the AM. We will type and cross in anticipation of PRBC transfusion. This morning he is sedated on Ativan, fentayl, and precedex. Will obtain a triglyceride level today in hopes to resume propofol. Patient is alkalotic and BMP however we will continue with bicarb drip per [facility] given that the patient does not have any access for hemodialysis. Anticipate replacing hemodialysis catheter tomorrow or Tuesday. The time my examination he is on AC TV 550, Rate 34, PeeP 16, FiO2 .65. 02/10: A.m. labs still pending, [facility] plans to replace HD catheter tomorrow as the patient is still febrile however his fever curve is trending down, remains on a bicarb drip and on vancomycin. Today at the time my examination patient was sedated on Precedex, Ativan and fentanyl and he is on assist control tidal 11/04/1951, rate 34, PEEP 16, FiO2 65%. Overnight patient was hypotensive and received 1 dose of midodrine. 02/11: Patient is still having low-grade temperatures that we will obtain a bilateral lower upper extremity venous Doppler ultrasound given that his repeat cultures have been negative so far. Patient received a Vas-Cath today for hemodialysis. The time examination patient is on assist control tidal volume 550, rate of 34, PEEP of 16 and FiO2 of 75%. Patient was hypokalemic and anemic yesterday which were both repleted with potassium and 1 unit PRBC. 02/12: 02/12: Patient had a 12-second run of V. tach today, his potassium and magnesium were low which was repleted. Renal adjusted potassium bath. We will obtain a triglyceride level in hopes to restarting to prevent as needed. This morning at the time my examination patient was sedated on fentanyl, Ativan and Precedex and remained on a bicarb drip. He was on assist control tidal volume 550, rate 34, PEEP 16, FiO2 85%. We will obtain a occult stool given no evident source of bleeding and need for transfusion. Anemia possibly due to hemodialysis. 02/13: Patient's T-max was 100.7, remains on fentanyl, Ativan, Precedex and bicarb drip this morning at some examination on assist control tidal volume 550, rate 34, PEEP 16 and FiO2 85%. On the labs this morning is slightly hypokalemic and remains metabolic alkalotic on BMP. His occult was positive. His Lovenox and consult GI. Patient received hemodialysis today. Hospitalist Physical - Constitutional Vitals: Temp Pulse Resp BP Pulse Ox 99.8 F H 119 H 34 H 106/63 97 02/13/21 12:46 02/13/21 15:37 02/13/21 15:30 02/13/21 15:37 02/13/21 15:37 General appearance: Present: no acute distress, well-nourished, other (Sedated on mechanical ventilation) - EENT Eyes: Present: PERRL - Neck Neck: Present: normal ROM - Respiratory Respiratory effort: normal Respiratory: bilateral: diminished - Cardiovascular Rhythm: regular Heart Sounds: Present: S1 & S2. Absent: systolic murmur, diastolic murmur - Extremities Extremities: no ischemia, pulses intact, pulses symmetrical, normal temperature, normal color Extremity abnormal: edema - Peripheral Assessment Generalized Edema Type: Non-pitting Capillary Refill: < 3 seconds Skin Temperature: Warm Peripheral Pulses: within normal limits - Abdominal General gastrointestinal: soft, non-tender, non-distended, normal bowel sounds - Integumentary Integumentary: Present: warm, dry - Psychiatric Psychiatric: other (Sedated) - Neurologic Neurologic: other (Sedated) HEART Score - HEART Score Risk factors: 1-2 risk factors Troponin: < normal limit - Critical Actions Critical Actions: 0-3 pts:0.9-1.7%risk of adverse cardiac event.Candidate for discharge Results - Labs CBC & Chem 7: 02/13/21 06:40 02/13/21 06:40 Labs: Laboratory Last Values WBC 9.0 K/mm3 (4.5-11.0) 02/13/21 06:40 RBC 2.19 M/mm3 (3.65-5.03) L 02/13/21 06:40 Hgb 7.0 gm/dl (11.8-15.2) L 02/13/21 06:40 Hct 20.8 % (35.5-45.6) L 02/13/21 06:40 MCV 95 fl (84-94) H 02/13/21 06:40 MCH 32 pg (28-32) 02/13/21 06:40 MCHC 34 % (32-34) 02/13/21 06:40 RDW 14.9 % (13.2-15.2) 02/13/21 06:40 Plt Count 235 K/mm3 (140-440) 02/13/21 06:40 Lymph % (Auto) 8.7 % (13.4-35.0) L 02/11/21 04:30 Harper % (Auto) 3.8 % (0.0-7.3) 02/11/21 04:30 Eos % (Auto) 0.9 % (0.0-4.3) 02/11/21 04:30 Baso % (Auto) 1.0 % (0.0-1.8) 02/11/21 04:30 Lymph # (Auto) 0.9 K/mm3 (1.2-5.4) L 02/11/21 04:30 Harper # (Auto) 0.4 K/mm3 (0.0-0.8) 02/11/21 04:30 Eos # (Auto) 0.1 K/mm3 (0.0-0.4) 02/11/21 04:30 Baso # (Auto) 0.0 K/mm3 (0.0-0.1) 02/11/21 04:30 Add Manual Diff Complete 02/09/21 05:10 Total Counted 100 02/09/21 05:10 Seg Neutrophils % 85.5 % (40.0-70.0) H 02/11/21 04:30 Seg Neuts % (Manual) 82.0 % (40.0-70.0) H 02/09/21 05:10 Band Neutrophils % 4.0 % 02/09/21 05:10 Lymphocytes % (Manual) 9.0 % (13.4-35.0) L 02/09/21 05:10 Reactive Lymphs % (Man) 1.0 % 01/27/21 05:29 Monocytes % (Manual) 2.0 % (0.0-7.3) 02/09/21 05:10 Eosinophils % (Manual) 1.0 % (0.0-4.3) 02/09/21 05:10 Basophils % (Manual) 1.0 % (0.0-1.8) 02/06/21 Unknown Metamyelocytes % 2.0 % 02/09/21 05:10 Nucleated RBC % 1.0 % (0.0-0.9) H 02/09/21 05:10 Seg Neutrophils # 9.2 K/mm3 (1.8-7.7) H 02/11/21 04:30 Seg Neutrophils # Man 8.9 K/mm3 (1.8-7.7) H 02/09/21 05:10 Band Neutrophils # 0.4 K/mm3 02/09/21 05:10 Lymphocytes # (Manual) 1.0 K/mm3 (1.2-5.4) L 02/09/21 05:10 Abs React Lymphs (Man) 0.0 K/mm3 02/09/21 05:10 Monocytes # (Manual) 0.2 K/mm3 (0.0-0.8) 02/09/21 05:10 Eosinophils # (Manual) 0.1 K/mm3 (0.0-0.4) 02/09/21 05:10 Basophils # (Manual) 0.0 K/mm3 (0.0-0.1) 02/09/21 05:10 Metamyelocytes # 0.2 K/mm3 02/09/21 05:10 Myelocytes # 0.0 K/mm3 02/09/21 05:10 Promyelocytes # 0.0 K/mm3 02/09/21 05:10 Blast Cells # 0.0 K/mm3 02/09/21 05:10 WBC Morphology Not Reportable 02/09/21 05:10 Hypersegmented Neuts Not Reportable 02/09/21 05:10 Hyposegmented Neuts Not Reportable 02/09/21 05:10 Hypogranular Neuts Not Reportable 02/09/21 05:10 Smudge Cells Not Reportable 02/09/21 05:10 Toxic Granulation Not Reportable 02/09/21 05:10 Toxic Vacuolation Not Reportable 02/09/21 05:10 Dohle Bodies Not Reportable 02/09/21 05:10 Pelger-Huet Anomaly Not Reportable 02/09/21 05:10 Fátima Rods Not Reportable 02/09/21 05:10 Platelet Estimate Consistent w auto 02/09/21 05:10 Clumped Platelets Not Reportable 02/09/21 05:10 Plt Clumps, EDTA Not Reportable 02/09/21 05:10 Large Platelets Few 02/09/21 05:10 Giant Platelets Not Reportable 02/09/21 05:10 Platelet Satelliting Not Reportable 02/09/21 05:10 Plt Morphology Comment Not Reportable 02/09/21 05:10 RBC Morphology Not Reportable 02/09/21 05:10 Dimorphic RBCs Not Reportable 02/09/21 05:10 Polychromasia Few 02/09/21 05:10 Hypochromasia Not Reportable 02/09/21 05:10 Poikilocytosis Not Reportable 02/09/21 05:10 Anisocytosis 1+ 02/09/21 05:10 Microcytosis Not Reportable 02/09/21 05:10 Macrocytosis Not Reportable 02/09/21 05:10 Spherocytes Not Reportable 02/09/21 05:10 Pappenheimer Bodies Not Reportable 02/09/21 05:10 Sickle Cells Not Reportable 02/09/21 05:10 Target Cells Not Reportable 02/09/21 05:10 Tear Drop Cells Not Reportable 02/09/21 05:10 Ovalocytes Not Reportable 02/09/21 05:10 Helmet Cells Not Reportable 02/09/21 05:10 Potter-Casa Bodies Not Reportable 02/09/21 05:10 Groton Rings Not Reportable 02/09/21 05:10 Ludmila Cells Not Reportable 02/09/21 05:10 Bite Cells Not Reportable 02/09/21 05:10 Crenated Cell Not Reportable 02/09/21 05:10 Elliptocytes Not Reportable 02/09/21 05:10 Acanthocytes (Spur) Not Reportable 02/09/21 05:10 Rouleaux Not Reportable 02/09/21 05:10 Hemoglobin C Crystals Not Reportable 02/09/21 05:10 Schistocytes Not Reportable 02/09/21 05:10 Malaria parasites Not Reportable 02/09/21 05:10 Aquiles Bodies Not Reportable 02/09/21 05:10 Hem Pathologist Commnt No 02/09/21 05:10 PT 14.9 Sec. (12.2-14.9) 02/11/21 08:27 INR 1.17 (0.87-1.13) H 02/11/21 08:27 D-Dimer 1722.16 ng/mlDDU (0-234) H 02/13/21 07:38 ABG pH 7.374 (7.320-7.450) 02/13/21 05:00 POC ABG pCO2 60.8 mmHg (32.0-48.0) H 02/13/21 05:00 ABG pCO2 51.2 mm Hg 02/12/21 04:41 POC ABG pO2 76.4 mmHg (83-108) L 02/13/21 05:00 ABG pO2 69.0 mm Hg (80.0-90.0) L 02/12/21 04:41 POC ABG HCO3 34.7 02/13/21 05:00 ABG HCO3 32.5 mmol/L (20.0-26.0) H 02/12/21 04:41 ABG O2 Saturation 95.2 (0-100) 02/13/21 05:00 ABG O2 Content 4.3 (0.0-44) 02/12/21 04:41 POC ABG Base Excess 8.4 02/13/21 05:00 ABG Base Excess 7.7 mmol/L (-2.0-3.0) H 02/12/21 04:41 ABG Hemoglobin 7.4 (12.0-17.5) L 02/13/21 05:00 ABG Oxyhemoglobin 92.2 (94-98) L 02/09/21 03:21 ABG Carboxyhemoglobin 2.4 % (0.0-5.0) 02/12/21 04:41 ABG Methemoglobin 0.6 % (0.0-1.5) 02/12/21 04:41 ABG Sodium 133.2 mmol/L (136.0-145.0) L 02/13/21 05:00 ABG Potassium 3.3 mmol/L (3.40-4.50) L 02/13/21 05:00 ABG Chloride 96.0 mmol/L (98-107) L 02/13/21 05:00 ABG Glucose 168 mg/dL (65-95) H 02/13/21 05:00 Oxyhemoglobin 94.7 % (95.0-99.0) L 02/12/21 04:41 Carboxyhemoglobin 1.5 (0.5-1.5) 02/09/21 03:21 FiO2 75 % 02/12/21 04:41 FiO2 % 85 02/13/21 05:00 Sodium 135 mmol/L (137-145) L 02/13/21 06:40 Potassium 3.4 mmol/L (3.6-5.0) L 02/13/21 06:40 Chloride 93.0 mmol/L (98-107) L 02/13/21 06:40 Carbon Dioxide 32 mmol/L (22-30) H 02/13/21 06:40 Anion Gap 13 mmol/L 02/13/21 06:40 BUN 46 mg/dL (9-20) H 02/13/21 06:40 Creatinine 5.8 mg/dL (0.8-1.3) H 02/13/21 06:40 Estimated GFR 12 ml/min 02/13/21 06:40 BUN/Creatinine Ratio 8 % 02/13/21 06:40 Glucose 148 mg/dL (75-100) H 02/13/21 06:40 POC Glucose 141 mg/dL (70-105) H 02/13/21 12:24 Hemoglobin A1c 6.3 % (4-6) H 02/02/21 16:00 Lactic Acid 1.90 mmol/L (0.7-2.0) 01/24/21 14:38 Calcium 7.9 mg/dL (8.4-10.2) L 02/13/21 06:40 Phosphorus 3.90 mg/dL (2.5-4.5) 02/13/21 06:40 Magnesium 1.60 mg/dL (1.7-2.3) L 02/13/21 06:40 Ferritin 976.5 ng/mL (30.0-300.0) H 02/13/21 07:38 Total Bilirubin 1.50 mg/dL (0.1-1.2) H 01/26/21 05:47 AST 37 units/L (5-40) 01/26/21 05:47 ALT 29 units/L (7-56) 01/26/21 05:47 Alkaline Phosphatase 70 units/L (35-129) 01/26/21 05:47 Lactate Dehydrogenase 649 units/L (91-180) H 02/11/21 09:00 C-Reactive Protein 16.80 mg/dL (0.00-1.30) H 02/13/21 06:40 Total Protein 7.2 g/dL (6.3-8.2) 01/26/21 05:47 Albumin 2.2 g/dL (3.9-5) L 01/26/21 05:47 Albumin/Globulin Ratio 0.4 % 01/26/21 05:47 Triglycerides 182 mg/dL (2-149) H 02/12/21 10:45 Procalcitonin 0.92 ng/mL (<0.15) 01/22/21 22:57 Arterial Blood Glucose 168 mg/dL (65-95) H 02/13/21 05:00 Arterial Blood Ionized Calcium 4.3 mg/dL (4.6-5.3) L 02/13/21 05:00 Urine Color Nehal (Yellow) 01/22/21 22:39 Urine Turbidity Cloudy (Clear) 01/22/21 22:39 Urine pH 5.0 (5.0-7.0) 01/22/21 22:39 Ur Specific [place] 1.017 (1.003-1.030) 01/22/21 22:39 Urine Protein 100 mg/dl mg/dL (Negative) 01/22/21 22:39 Urine Glucose (UA) Neg mg/dL (Negative) 01/22/21 22:39 Urine Ketones Neg mg/dL (Negative) 01/22/21 22:39 Urine Blood Mod (Negative) 01/22/21 22:39 Urine Nitrite Neg (Negative) 01/22/21 22:39 Urine Bilirubin Neg (Negative) 01/22/21 22:39 Urine Urobilinogen 2.0 mg/dL (<2.0) 01/22/21 22:39 Ur Leukocyte Esterase Mod (Negative) 01/22/21 22:39 Urine WBC (Auto) < 1.0 /HPF (0.0-6.0) 01/22/21 22:39 Urine RBC (Auto) < 1.0 /HPF (0.0-6.0) 01/22/21 22:39 U Epithel Cells (Auto) < 1.0 /HPF (0-13.0) 01/22/21 22:39 Urine Osmolality 416 Mosm/kg 01/30/21 12:15 Urine Total Volume 2300 ml 01/30/21 12:00 Urine Creatinine 53.0 mg/dL (0.1-20.0) H 01/30/21 12:00 Ur Creatinine 24 Hour 1.2 (0.8-2.8) 01/30/21 12:00 Urine Sodium 28 mmol/L 01/22/21 22:39 Nasal Screen MRSA (PCR) Negative (Negative) 02/02/21 13:20 Random Vancomycin 13.7 ug/mL (0-40.0) 02/07/21 10:40 Coronavirus (PCR) Positive (Negative) A 01/23/21 08:41 Hepatitis A IgM Ab Non-reactive (NonReactive) 02/03/21 Unknown Hep Bs Antigen Non-reactive (Negative) 02/03/21 Unknown Hep B Core IgM Ab Non-reactive (NonReactive) 02/03/21 Unknown Hepatitis C Antibody Non-reactive (NonReactive) 02/03/21 Unknown Blood Type B POSITIVE 02/09/21 13:40 Antibody Screen Negative 02/09/21 13:40 Crossmatch See Detail 02/09/21 13:40 Microbiology: Microbiology 02/13/21 09:05 Stool Stool Occult Blood (RUSTAM) - Final 02/08/21 15:12 Peripheral/Venous Blood Culture - Preliminary NO GROWTH AFTER 4 DAYS 02/08/21 15:12 Peripheral/Venous Blood Culture - Preliminary NO GROWTH AFTER 4 DAYS Black/IV: Voiding Method Indwelling Catheter Active Medications - Current Medications Current Medications: Generic Name Dose Route Start Last Admin Trade Name Freq PRN Reason Stop Dose Admin Acetaminophen 650 mg 01/23/21 02:25 02/11/21 18:20 Acetaminophen 650 Mg Rect Supp MI 650 mg Q4H PRN Administration Pain, Mild (1-3) Acetaminophen 650 mg 01/24/21 12:58 02/11/21 04:09 Acetaminophen 325 Mg/10.15 Ml Oral Liqd Unit Dose FEEDTUBE 650 mg Q6H PRN Administration Pain, Mild (1-3) Lipase/Protease/Amylase 1 each 01/26/21 14:25 Lipase 10,500/Protease 25,000/Amylase 43,750 (Units) Dr Cap FEEDTUBE PRN PRN For Clogged Feeding Tube Dextrose 50 ml 01/27/21 07:24 Dextrose 50% In Water (25gm) 50 Ml Syringe IV Q30MIN PRN Hypoglycemia Protocol Famotidine 20 mg 02/10/21 10:00 02/13/21 09:27 Famotidine 20 Mg Tab PO 20 mg DAILY CECE Administration Fentanyl 50 mcg 01/22/21 22:39 02/10/21 13:46 Fentanyl 100 Mcg/2 Ml Inj IV 50 mcg Q10MIN PRN Administration ANALGESIA Heparin Sodium (Porcine) 2,000 unit 02/11/21 09:38 Heparin 10,000 Units/10 Ml Vial IV SAGRARIO PRN hemodialysis Hydrophilic Ointment 1 applic 01/22/21 22:39 Lip Therapy Vaseline TP Q2HR PRN Dry Lips Fentanyl Citrate 2,000 mcg in 100 mls @ 6.124 mls/hr 01/22/21 23:00 02/13/21 13:37 Fentanyl Drip Premix IV 4 mcg/kg/hr TITR CECE 24.494 mls/hr Administration Protocol 1 MCG/KG/HR Propofol 1,000 mg in 100 mls @ 3.674 mls/hr 01/22/21 23:45 02/06/21 18:37 Diprivan 10 Mg/Ml IV 0 mcg/kg/min TITR CCEE 0 mls/hr Titration Protocol 5 MCG/KG/MIN Norepinephrine 4 mg in 250 mls @ 7.5 mls/hr 01/28/21 14:00 02/08/21 06:08 Levophed Drip 4 Mg/Ns 250 Ml IV 0 mcg/min TITR CECE 0 mls/hr Titration Protocol 2 MCG/MIN Dexmedetomidine HCl 1,000 mcg/ 260 mls @ 6.368 mls/hr 01/30/21 20:00 02/13/21 14:06 Sodium Chloride IV 1.4 mcg/kg/hr TITRATE CECE 44.579 mls/hr Administration Protocol 0.2 MCG/KG/HR Lorazepam 100 mg/ Sodium 100 mls @ 1 mls/hr 02/06/21 19:00 02/12/21 21:01 Chloride/ Miscellaneous IV 1 mg/hr Information TITR CECE 1 mls/hr Administration Protocol 1 MG/HR Sodium Chloride 100 mls @ 999 mls/hr 02/11/21 09:38 Nacl 0.9% IV SAGRARIO PRN Hypotension Multi-Ingred Cream/Lotion/Oil/Oint 1 applic 01/22/21 22:39 02/01/21 09:33 Mineral Oil/Petrolatum, White Ophth Oint 3.5 Gm OU 1 applic Q4HR PRN Administration Dry Eye(s) Ondansetron HCl 4 mg 01/23/21 02:17 Ondansetron 4 Mg/2 Ml Inj IV Q8H PRN Nausea And Vomiting Simple Syrup 15 ml 01/26/21 14:25 Simple Syrup 15 Ml FEEDTUBE PRN PRN Hypoglycemia Simple Syrup 30 ml 01/26/21 14:25 Simple Syrup 15 Ml FEEDTUBE PRN PRN Hypoglycemia Sodium Bicarbonate 325 mg 01/26/21 14:25 Sodium Bicarbonate 325 Mg Tab FEEDTUBE PRN PRN For Clogged Feeding Tube Nutrition/Malnutrition Assess - Dietary Evaluation Nutrition/Malnutrition Findings: Nutrition Notes Start: 01/26/21 13:59 Freq: Status: Active Protocol: Document 02/13/21 12:00 CW (Rec: 02/13/21 12:14 CW [id number]) Nutrition Notes Initial or Follow up Reassessment Current Diagnosis Acute Kidney Injury,Diabetes, Sepsis,Hypertension, Respiratory Failure, Hyperlipidemia Other Pertinent Diagnosis on HD, COVID-19 (+), bilat pneu Current Diet TF - Nepro at 36 ml/hr Labs/Tests Na 135 K 3.4 BUN 46 Cr 5.8 BG 148 Pertinent Medications NaHCO3 150 mEq in D at 100 ml/ hr KCl 40 mEq Height 5 ft 8 in Weight 161.3 kg Karthaus Body Weight (kg) 70.00 BMI 54.1 Weight change and time frame wt increase likely r/t to HD need Weight Status Morbidly Obese Subjective/Other Information F/U mechanical vent, propofol, and TF tolerance. Pt continues to tolerate TF. Pt is not receiving propofol at this time with. Pt received HD today. Per RN 7L fluid removed, likely. TF off at this time or medication per RN and will be restarted soon. Hold TF no appropriate unless rx presdription specifically states that feeds need to be held. Pt is anuric at this time. Per chart, flushes are being administered at 100 ml q4h. Once hyponatremia resolves recommend returning to ordered flush. Burn Absent Trauma Absent GI Symptoms None Difficulty In Swallowing Skin Integrity/Comment Intact Current % PO Negligible Minimum of two criteria No Fluid Accumulation Mild (non-severe) #1 Nutrition Diagnosis Inadequate oral intake Diagnosis Progress(for reassessment Continues documentation) Is patient on ventilator? Yes Is Patient Ambulatory and/or Out of Bed No REE-([facility]-confined to bed) 2869.020 Kcal/Kg value to use for calculation 12 Approximate Energy Requirements Using 1936 kcal/Kg Calculation Used for Recommendations Kcal/kg Additional Notes Pro needs >1.2g/kg adjBW: > 115g/day for HD needs Fluid needs 500+ total output or per MD Nutrition Intervention Change Diet Order: Restart TF Nutrition Support: If running continuous feed x 24 hrs without proning: Nepro at 36 ml/hr with a free water flush 200 ml q4h. If in prone position x 12/hr day: While in prone position: Nepro at 20 ml/hr with free water flush of 100 ml q4h or per MD order. While in supine position: Nepro at 65 ml/hr with a free water flush of 200 ml q4h or per MD order. Kcal 1,555 Protein (gm) 70 Fluid (mL) 628 Goal #1 TF tolerance Goal #2 TF to meet at least 75% energy and pro needs Anticipated Discharge Needs: unable to determine at this time Follow-Up By: 02/17/21 Additional Comments F/U for TF tolerance and Na levels <DENNYS HOANG R - Last Filed: 02/13/21 19:44> Assessment and Plan Assessment and plan: I saw and evaluated the patient. I agree with the findings and the plan of care as documented in the Nurse Practitioner's~note, Hospitalist Physical - Constitutional Vitals: Temp Pulse Resp BP Pulse Ox 98.5 F 97 H 32 H 88/58 98 02/13/21 16:00 02/13/21 19:28 02/13/21 18:00 02/13/21 19:28 02/13/21 19:28 Results - Labs CBC & Chem 7: 02/13/21 06:40 02/13/21 06:40 Labs: Laboratory Last Values WBC 9.0 K/mm3 (4.5-11.0) 02/13/21 06:40 RBC 2.19 M/mm3 (3.65-5.03) L 02/13/21 06:40 Hgb 7.0 gm/dl (11.8-15.2) L 02/13/21 06:40 Hct 20.8 % (35.5-45.6) L 02/13/21 06:40 MCV 95 fl (84-94) H 02/13/21 06:40 MCH 32 pg (28-32) 02/13/21 06:40 MCHC 34 % (32-34) 02/13/21 06:40 RDW 14.9 % (13.2-15.2) 02/13/21 06:40 Plt Count 235 K/mm3 (140-440) 02/13/21 06:40 Lymph % (Auto) 8.7 % (13.4-35.0) L 02/11/21 04:30 Harper % (Auto) 3.8 % (0.0-7.3) 02/11/21 04:30 Eos % (Auto) 0.9 % (0.0-4.3) 02/11/21 04:30 Baso % (Auto) 1.0 % (0.0-1.8) 02/11/21 04:30 Lymph # (Auto) 0.9 K/mm3 (1.2-5.4) L 02/11/21 04:30 Harper # (Auto) 0.4 K/mm3 (0.0-0.8) 02/11/21 04:30 Eos # (Auto) 0.1 K/mm3 (0.0-0.4) 02/11/21 04:30 Baso # (Auto) 0.0 K/mm3 (0.0-0.1) 02/11/21 04:30 Add Manual Diff Complete 02/09/21 05:10 Total Counted 100 02/09/21 05:10 Seg Neutrophils % 85.5 % (40.0-70.0) H 02/11/21 04:30 Seg Neuts % (Manual) 82.0 % (40.0-70.0) H 02/09/21 05:10 Band Neutrophils % 4.0 % 02/09/21 05:10 Lymphocytes % (Manual) 9.0 % (13.4-35.0) L 02/09/21 05:10 Reactive Lymphs % (Man) 1.0 % 01/27/21 05:29 Monocytes % (Manual) 2.0 % (0.0-7.3) 02/09/21 05:10 Eosinophils % (Manual) 1.0 % (0.0-4.3) 02/09/21 05:10 Basophils % (Manual) 1.0 % (0.0-1.8) 02/06/21 Unknown Metamyelocytes % 2.0 % 02/09/21 05:10 Nucleated RBC % 1.0 % (0.0-0.9) H 02/09/21 05:10 Seg Neutrophils # 9.2 K/mm3 (1.8-7.7) H 02/11/21 04:30 Seg Neutrophils # Man 8.9 K/mm3 (1.8-7.7) H 02/09/21 05:10 Band Neutrophils # 0.4 K/mm3 02/09/21 05:10 Lymphocytes # (Manual) 1.0 K/mm3 (1.2-5.4) L 02/09/21 05:10 Abs React Lymphs (Man) 0.0 K/mm3 02/09/21 05:10 Monocytes # (Manual) 0.2 K/mm3 (0.0-0.8) 02/09/21 05:10 Eosinophils # (Manual) 0.1 K/mm3 (0.0-0.4) 02/09/21 05:10 Basophils # (Manual) 0.0 K/mm3 (0.0-0.1) 02/09/21 05:10 Metamyelocytes # 0.2 K/mm3 02/09/21 05:10 Myelocytes # 0.0 K/mm3 02/09/21 05:10 Promyelocytes # 0.0 K/mm3 02/09/21 05:10 Blast Cells # 0.0 K/mm3 02/09/21 05:10 WBC Morphology Not Reportable 02/09/21 05:10 Hypersegmented Neuts Not Reportable 02/09/21 05:10 Hyposegmented Neuts Not Reportable 02/09/21 05:10 Hypogranular Neuts Not Reportable 02/09/21 05:10 Smudge Cells Not Reportable 02/09/21 05:10 Toxic Granulation Not Reportable 02/09/21 05:10 Toxic Vacuolation Not Reportable 02/09/21 05:10 Dohle Bodies Not Reportable 02/09/21 05:10 Pelger-Huet Anomaly Not Reportable 02/09/21 05:10 Áftima Rods Not Reportable 02/09/21 05:10 Platelet Estimate Consistent w auto 02/09/21 05:10 Clumped Platelets Not Reportable 02/09/21 05:10 Plt Clumps, EDTA Not Reportable 02/09/21 05:10 Large Platelets Few 02/09/21 05:10 Giant Platelets Not Reportable 02/09/21 05:10 Platelet Satelliting Not Reportable 02/09/21 05:10 Plt Morphology Comment Not Reportable 02/09/21 05:10 RBC Morphology Not Reportable 02/09/21 05:10 Dimorphic RBCs Not Reportable 02/09/21 05:10 Polychromasia Few 02/09/21 05:10 Hypochromasia Not Reportable 02/09/21 05:10 Poikilocytosis Not Reportable 02/09/21 05:10 Anisocytosis 1+ 02/09/21 05:10 Microcytosis Not Reportable 02/09/21 05:10 Macrocytosis Not Reportable 02/09/21 05:10 Spherocytes Not Reportable 02/09/21 05:10 Pappenheimer Bodies Not Reportable 02/09/21 05:10 Sickle Cells Not Reportable 02/09/21 05:10 Target Cells Not Reportable 02/09/21 05:10 Tear Drop Cells Not Reportable 02/09/21 05:10 Ovalocytes Not Reportable 02/09/21 05:10 Helmet Cells Not Reportable 02/09/21 05:10 Potter-Casa Bodies Not Reportable 02/09/21 05:10 Groton Rings Not Reportable 02/09/21 05:10 Ludmila Cells Not Reportable 02/09/21 05:10 Bite Cells Not Reportable 02/09/21 05:10 Crenated Cell Not Reportable 02/09/21 05:10 Elliptocytes Not Reportable 02/09/21 05:10 Acanthocytes (Spur) Not Reportable 02/09/21 05:10 Rouleaux Not Reportable 02/09/21 05:10 Hemoglobin C Crystals Not Reportable 02/09/21 05:10 Schistocytes Not Reportable 02/09/21 05:10 Malaria parasites Not Reportable 02/09/21 05:10 Aquiles Bodies Not Reportable 02/09/21 05:10 Hem Pathologist Commnt No 02/09/21 05:10 PT 14.9 Sec. (12.2-14.9) 02/11/21 08:27 INR 1.17 (0.87-1.13) H 02/11/21 08:27 D-Dimer 1722.16 ng/mlDDU (0-234) H 02/13/21 07:38 ABG pH 7.374 (7.320-7.450) 02/13/21 05:00 POC ABG pCO2 60.8 mmHg (32.0-48.0) H 02/13/21 05:00 ABG pCO2 51.2 mm Hg 02/12/21 04:41 POC ABG pO2 76.4 mmHg (83-108) L 02/13/21 05:00 ABG pO2 69.0 mm Hg (80.0-90.0) L 02/12/21 04:41 POC ABG HCO3 34.7 02/13/21 05:00 ABG HCO3 32.5 mmol/L (20.0-26.0) H 02/12/21 04:41 ABG O2 Saturation 95.2 (0-100) 02/13/21 05:00 ABG O2 Content 4.3 (0.0-44) 02/12/21 04:41 POC ABG Base Excess 8.4 02/13/21 05:00 ABG Base Excess 7.7 mmol/L (-2.0-3.0) H 02/12/21 04:41 ABG Hemoglobin 7.4 (12.0-17.5) L 02/13/21 05:00 ABG Oxyhemoglobin 92.2 (94-98) L 02/09/21 03:21 ABG Carboxyhemoglobin 2.4 % (0.0-5.0) 02/12/21 04:41 ABG Methemoglobin 0.6 % (0.0-1.5) 02/12/21 04:41 ABG Sodium 133.2 mmol/L (136.0-145.0) L 02/13/21 05:00 ABG Potassium 3.3 mmol/L (3.40-4.50) L 02/13/21 05:00 ABG Chloride 96.0 mmol/L (98-107) L 02/13/21 05:00 ABG Glucose 168 mg/dL (65-95) H 02/13/21 05:00 Oxyhemoglobin 94.7 % (95.0-99.0) L 02/12/21 04:41 Carboxyhemoglobin 1.5 (0.5-1.5) 02/09/21 03:21 FiO2 75 % 02/12/21 04:41 FiO2 % 85 02/13/21 05:00 Sodium 135 mmol/L (137-145) L 02/13/21 06:40 Potassium 3.4 mmol/L (3.6-5.0) L 02/13/21 06:40 Chloride 93.0 mmol/L (98-107) L 02/13/21 06:40 Carbon Dioxide 32 mmol/L (22-30) H 02/13/21 06:40 Anion Gap 13 mmol/L 02/13/21 06:40 BUN 46 mg/dL (9-20) H 02/13/21 06:40 Creatinine 5.8 mg/dL (0.8-1.3) H 02/13/21 06:40 Estimated GFR 12 ml/min 02/13/21 06:40 BUN/Creatinine Ratio 8 % 02/13/21 06:40 Glucose 148 mg/dL (75-100) H 02/13/21 06:40 POC Glucose 156 mg/dL (70-105) H 02/13/21 16:57 Hemoglobin A1c 6.3 % (4-6) H 02/02/21 16:00 Lactic Acid 1.90 mmol/L (0.7-2.0) 01/24/21 14:38 Calcium 7.9 mg/dL (8.4-10.2) L 02/13/21 06:40 Phosphorus 3.90 mg/dL (2.5-4.5) 02/13/21 06:40 Magnesium 1.60 mg/dL (1.7-2.3) L 02/13/21 06:40 Ferritin 976.5 ng/mL (30.0-300.0) H 02/13/21 07:38 Total Bilirubin 1.50 mg/dL (0.1-1.2) H 01/26/21 05:47 AST 37 units/L (5-40) 01/26/21 05:47 ALT 29 units/L (7-56) 01/26/21 05:47 Alkaline Phosphatase 70 units/L (35-129) 01/26/21 05:47 Lactate Dehydrogenase 649 units/L (91-180) H 02/11/21 09:00 C-Reactive Protein 16.80 mg/dL (0.00-1.30) H 02/13/21 06:40 Total Protein 7.2 g/dL (6.3-8.2) 01/26/21 05:47 Albumin 2.2 g/dL (3.9-5) L 01/26/21 05:47 Albumin/Globulin Ratio 0.4 % 01/26/21 05:47 Triglycerides 182 mg/dL (2-149) H 02/12/21 10:45 Procalcitonin 0.92 ng/mL (<0.15) 01/22/21 22:57 Arterial Blood Glucose 168 mg/dL (65-95) H 02/13/21 05:00 Arterial Blood Ionized Calcium 4.3 mg/dL (4.6-5.3) L 02/13/21 05:00 Urine Color Nehal (Yellow) 01/22/21 22:39 Urine Turbidity Cloudy (Clear) 01/22/21 22:39 Urine pH 5.0 (5.0-7.0) 01/22/21 22:39 Ur Specific [place] 1.017 (1.003-1.030) 01/22/21 22:39 Urine Protein 100 mg/dl mg/dL (Negative) 01/22/21 22:39 Urine Glucose (UA) Neg mg/dL (Negative) 01/22/21 22:39 Urine Ketones Neg mg/dL (Negative) 01/22/21 22:39 Urine Blood Mod (Negative) 01/22/21 22:39 Urine Nitrite Neg (Negative) 01/22/21 22:39 Urine Bilirubin Neg (Negative) 01/22/21 22:39 Urine Urobilinogen 2.0 mg/dL (<2.0) 01/22/21 22:39 Ur Leukocyte Esterase Mod (Negative) 01/22/21 22:39 Urine WBC (Auto) < 1.0 /HPF (0.0-6.0) 01/22/21 22:39 Urine RBC (Auto) < 1.0 /HPF (0.0-6.0) 01/22/21 22:39 U Epithel Cells (Auto) < 1.0 /HPF (0-13.0) 01/22/21 22:39 Urine Osmolality 416 Mosm/kg 01/30/21 12:15 Urine Total Volume 2300 ml 01/30/21 12:00 Urine Creatinine 53.0 mg/dL (0.1-20.0) H 01/30/21 12:00 Ur Creatinine 24 Hour 1.2 (0.8-2.8) 01/30/21 12:00 Urine Sodium 28 mmol/L 01/22/21 22:39 Nasal Screen MRSA (PCR) Negative (Negative) 02/02/21 13:20 Random Vancomycin 13.7 ug/mL (0-40.0) 02/07/21 10:40 Coronavirus (PCR) Positive (Negative) A 01/23/21 08:41 Hepatitis A IgM Ab Non-reactive (NonReactive) 02/03/21 Unknown Hep Bs Antigen Non-reactive (Negative) 02/03/21 Unknown Hep B Core IgM Ab Non-reactive (NonReactive) 02/03/21 Unknown Hepatitis C Antibody Non-reactive (NonReactive) 02/03/21 Unknown Blood Type B POSITIVE 02/09/21 13:40 Antibody Screen Negative 02/09/21 13:40 Crossmatch See Detail 02/09/21 13:40 Microbiology: Microbiology 02/08/21 15:12 Peripheral/Venous Blood Culture - Final NO GROWTH AFTER 5 DAYS 02/08/21 15:12 Peripheral/Venous Blood Culture - Final NO GROWTH AFTER 5 DAYS 02/13/21 09:05 Stool Stool Occult Blood (RUSTAM) - Final Black/IV: Voiding Method Indwelling Catheter Active Medications - Current Medications Current Medications: Generic Name Dose Route Start Last Admin Trade Name Freq PRN Reason Stop Dose Admin Acetaminophen 650 mg 01/23/21 02:25 02/11/21 18:20 Acetaminophen 650 Mg Rect Supp MI 650 mg Q4H PRN Administration Pain, Mild (1-3) Acetaminophen 650 mg 01/24/21 12:58 02/11/21 04:09 Acetaminophen 325 Mg/10.15 Ml Oral Liqd Unit Dose FEEDTUBE 650 mg Q6H PRN Administration Pain, Mild (1-3) Lipase/Protease/Amylase 1 each 01/26/21 14:25 Lipase 10,500/Protease 25,000/Amylase 43,750 (Units) Dr Cap FEEDTUBE PRN PRN For Clogged Feeding Tube Dextrose 50 ml 01/27/21 07:24 Dextrose 50% In Water (25gm) 50 Ml Syringe IV Q30MIN PRN Hypoglycemia Protocol Famotidine 20 mg 02/10/21 10:00 02/13/21 09:27 Famotidine 20 Mg Tab PO 20 mg DAILY CECE Administration Fentanyl 50 mcg 01/22/21 22:39 02/10/21 13:46 Fentanyl 100 Mcg/2 Ml Inj IV 50 mcg Q10MIN PRN Administration ANALGESIA Heparin Sodium (Porcine) 2,000 unit 02/11/21 09:38 Heparin 10,000 Units/10 Ml Vial IV SAGRARIO PRN hemodialysis Hydrophilic Ointment 1 applic 01/22/21 22:39 Lip Therapy Vaseline TP Q2HR PRN Dry Lips Fentanyl Citrate 2,000 mcg in 100 mls @ 6.124 mls/hr 01/22/21 23:00 02/13/21 17:55 Fentanyl Drip Premix IV 4 mcg/kg/hr TITR CECE 24.494 mls/hr Administration Protocol 1 MCG/KG/HR Propofol 1,000 mg in 100 mls @ 3.674 mls/hr 01/22/21 23:45 02/06/21 18:37 Diprivan 10 Mg/Ml IV 0 mcg/kg/min TITR CECE 0 mls/hr Titration Protocol 5 MCG/KG/MIN Norepinephrine 4 mg in 250 mls @ 7.5 mls/hr 01/28/21 14:00 02/08/21 06:08 Levophed Drip 4 Mg/Ns 250 Ml IV 0 mcg/min TITR CECE 0 mls/hr Titration Protocol 2 MCG/MIN Dexmedetomidine HCl 1,000 mcg/ 260 mls @ 6.368 mls/hr 01/30/21 20:00 02/13/21 14:06 Sodium Chloride IV 1.4 mcg/kg/hr TITRATE CECE 44.579 mls/hr Administration Protocol 0.2 MCG/KG/HR Lorazepam 100 mg/ Sodium 100 mls @ 1 mls/hr 02/06/21 19:00 02/12/21 21:01 Chloride/ Miscellaneous IV 1 mg/hr Information TITR CECE 1 mls/hr Administration Protocol 1 MG/HR Sodium Chloride 100 mls @ 999 mls/hr 02/11/21 09:38 Nacl 0.9% IV SAGRARIO PRN Hypotension Multi-Ingred Cream/Lotion/Oil/Oint 1 applic 01/22/21 22:39 02/01/21 09:33 Mineral Oil/Petrolatum, White Ophth Oint 3.5 Gm OU 1 applic Q4HR PRN Administration Dry Eye(s) Ondansetron HCl 4 mg 01/23/21 02:17 Ondansetron 4 Mg/2 Ml Inj IV Q8H PRN Nausea And Vomiting Simple Syrup 15 ml 01/26/21 14:25 Simple Syrup 15 Ml FEEDTUBE PRN PRN Hypoglycemia Simple Syrup 30 ml 01/26/21 14:25 Simple Syrup 15 Ml FEEDTUBE PRN PRN Hypoglycemia Sodium Bicarbonate 325 mg 01/26/21 14:25 Sodium Bicarbonate 325 Mg Tab FEEDTUBE PRN PRN For Clogged Feeding Tube Nutrition/Malnutrition Assess - Dietary Evaluation Nutrition/Malnutrition Findings: Nutrition Notes Start: 01/26/21 13:59 Freq: Status: Active Protocol: Document 02/13/21 12:00 CW (Rec: 02/13/21 12:14 CW [id number]) Nutrition Notes Initial or Follow up Reassessment Current Diagnosis Acute Kidney Injury,Diabetes, Sepsis,Hypertension, Respiratory Failure, Hyperlipidemia Other Pertinent Diagnosis on HD, COVID-19 (+), bilat pneu Current Diet TF - Nepro at 36 ml/hr Labs/Tests Na 135 K 3.4 BUN 46 Cr 5.8 BG 148 Pertinent Medications NaHCO3 150 mEq in D at 100 ml/ hr KCl 40 mEq Height 5 ft 8 in Weight 161.3 kg Karthaus Body Weight (kg) 70.00 BMI 54.1 Weight change and time frame wt increase likely r/t to HD need Weight Status Morbidly Obese Subjective/Other Information F/U mechanical vent, propofol, and TF tolerance. Pt continues to tolerate TF. Pt is not receiving propofol at this time with. Pt received HD today. Per RN 7L fluid removed, likely. TF off at this time or medication per RN and will be restarted soon. Hold TF no appropriate unless rx presdription specifically states that feeds need to be held. Pt is anuric at this time. Per chart, flushes are being administered at 100 ml q4h. Once hyponatremia resolves recommend returning to ordered flush. Burn Absent Trauma Absent GI Symptoms None Difficulty In Swallowing Skin Integrity/Comment Intact Current % PO Negligible Minimum of two criteria No Fluid Accumulation Mild (non-severe) #1 Nutrition Diagnosis Inadequate oral intake Diagnosis Progress(for reassessment Continues documentation) Is patient on ventilator? Yes Is Patient Ambulatory and/or Out of Bed No REE-([facility]-confined to bed) 2869.020 Kcal/Kg value to use for calculation 12 Approximate Energy Requirements Using 1936 kcal/Kg Calculation Used for Recommendations Kcal/kg Additional Notes Pro needs >1.2g/kg adjBW: > 115g/day for HD needs Fluid needs 500+ total output or per MD Nutrition Intervention Change Diet Order: Restart TF Nutrition Support: If running continuous feed x 24 hrs without proning: Nepro at 36 ml/hr with a free water flush 200 ml q4h. If in prone position x 12/hr day: While in prone position: Nepro at 20 ml/hr with free water flush of 100 ml q4h or per MD order. While in supine position: Nepro at 65 ml/hr with a free water flush of 200 ml q4h or per MD order. Kcal 1,555 Protein (gm) 70 Fluid (mL) 628 Goal #1 TF tolerance Goal #2 TF to meet at least 75% energy and pro needs Anticipated Discharge Needs: unable to determine at this time Follow-Up By: 02/17/21 Additional Comments F/U for TF tolerance and Na levels
[2021-02-14] MEDS: dexmedeTOMIDine 1,000 MCG in SODIUM CHLORIDE 0.9% 250ML 250 ML IV SCH ×4 (02:08→21:16)
[2021-02-14] MEDS: fentaNYL DRIP Premix 2,000 MCG/100 ML BAG IV SCH ×5 (02:35→21:19)
[2021-02-14 05:40] LABS: Calcium 7.9 mg/dL (8.4-10.2)
[2021-02-14 06:00] LABS: Hematocrit 20.7 % (35.5-45.6); Hemoglobin 6.9 gm/dl (11.8-15.2); Mean Corpuscular HGB Conc 34 % (32-34); Mean Corpuscular Volume 97 fl (84-94); Platelet Count 241 K/mm3 (140-440); Red Blood Count 2.14 M/mm3 (3.65-5.03); Red Cell Distribution Width 14.7 % (13.2-15.2)
[2021-02-14] MEDS ORDERED: SODIUM CHLORIDE 0.9% 500 ML 500 ML IV SCH (10:00)
--- NOTE | 2021-02-14 10:34 | Progress Note ---
Assessment and Plan Acute Hypoxic respiratory failure COVID-19 PNA Severe sepsis with septic shock Acute kidney injury secondary to ATN Hyperkalemia Hypernatremia DM2 on insulin Plan: HD today will cont daily HD for now primarily for UF Assess need for HD on daily basis Initiated on HD on 02/03/21 s/p Right IJ Trialysis dialysis catheter placement by Dr Reddy Strict I&O Renally dose meds Subjective Date of service: 02/14/21 Principal diagnosis: DEISI Interval history: Intubated. Objective - Exam Narrative Exam: GE:Intubated HEENT:Limited due to Covid Neck:Limited due to Covid Chest:On Vent CVS:Limited due to Covid Abd:Limited due to Covid Neuro:Sedated - Vital Signs Vital signs: Vital Signs - 12hr 02/13/21 02/13/21 02/13/21 22:45 23:00 23:15 Temperature Pulse Rate 96 H 97 H 102 H Pulse Rate [ From Monitor] Respiratory 34 H 28 H 35 H Rate Blood Pressure 96/62 101/59 123/78 O2 Sat by Pulse 99 99 97 Oximetry 02/13/21 02/13/21 02/13/21 23:30 23:35 23:45 Temperature Pulse Rate 101 H 98 H 101 H Pulse Rate [ From Monitor] Respiratory 32 H 31 H Rate Blood Pressure 113/71 101/59 113/71 O2 Sat by Pulse 97 99 97 Oximetry 02/13/21 02/14/21 02/14/21 23:54 00:00 00:15 Temperature 99.2 F Pulse Rate 99 H 99 H 98 H Pulse Rate [ 100 H From Monitor] Respiratory 32 H 33 H 33 H Rate Blood Pressure 113/71 107/70 106/70 O2 Sat by Pulse 97 97 97 Oximetry 02/14/21 02/14/21 02/14/21 00:30 00:45 01:00 Temperature Pulse Rate 97 H 96 H 94 H Pulse Rate [ From Monitor] Respiratory 33 H 29 H 29 H Rate Blood Pressure 101/61 98/61 102/59 O2 Sat by Pulse 97 97 97 Oximetry 02/14/21 02/14/21 02/14/21 01:15 01:30 01:45 Temperature Pulse Rate 92 H 90 89 Pulse Rate [ From Monitor] Respiratory 29 H 31 H 34 H Rate Blood Pressure 98/58 96/58 97/60 O2 Sat by Pulse 97 97 97 Oximetry 02/14/21 02/14/21 02/14/21 02:00 02:15 02:30 Temperature Pulse Rate 88 87 87 Pulse Rate [ From Monitor] Respiratory 31 H 33 H 34 H Rate Blood Pressure 97/59 97/58 97/59 O2 Sat by Pulse 97 98 99 Oximetry 02/14/21 02/14/21 02/14/21 02:45 03:00 03:15 Temperature Pulse Rate 85 85 85 Pulse Rate [ From Monitor] Respiratory 34 H 34 H 34 H Rate Blood Pressure 90/58 91/56 96/58 O2 Sat by Pulse 99 99 99 Oximetry 02/14/21 02/14/21 02/14/21 03:21 03:30 03:45 Temperature Pulse Rate 85 93 H 88 Pulse Rate [ From Monitor] Respiratory 24 33 H Rate Blood Pressure 96/58 123/75 102/63 O2 Sat by Pulse 99 95 97 Oximetry 02/14/21 02/14/21 02/14/21 04:00 04:15 04:30 Temperature 99.5 F Pulse Rate 91 H 89 91 H Pulse Rate [ 91 H From Monitor] Respiratory 33 H 33 H 32 H Rate Blood Pressure 103/63 99/60 101/63 O2 Sat by Pulse 98 98 97 Oximetry 02/14/21 02/14/21 02/14/21 04:45 05:00 05:15 Temperature Pulse Rate 93 H 91 H 91 H Pulse Rate [ From Monitor] Respiratory 29 H 28 H 32 H Rate Blood Pressure 104/63 104/61 100/60 O2 Sat by Pulse 98 98 98 Oximetry 02/14/21 02/14/21 02/14/21 05:30 05:45 06:00 Temperature Pulse Rate 101 H 101 H 96 H Pulse Rate [ From Monitor] Respiratory 33 H 34 H 34 H Rate Blood Pressure 100/60 95/54 93/55 O2 Sat by Pulse 88 95 96 Oximetry 02/14/21 02/14/21 02/14/21 06:15 06:30 06:45 Temperature Pulse Rate 93 H 90 89 Pulse Rate [ From Monitor] Respiratory 34 H 34 H 31 H Rate Blood Pressure 92/53 86/51 95/56 O2 Sat by Pulse 96 96 96 Oximetry 02/14/21 02/14/21 02/14/21 07:00 07:15 07:30 Temperature Pulse Rate 90 88 88 Pulse Rate [ From Monitor] Respiratory 31 H 34 H 31 H Rate Blood Pressure 94/56 91/56 95/57 O2 Sat by Pulse 96 96 96 Oximetry 02/14/21 02/14/21 02/14/21 07:45 08:00 08:15 Temperature 98.9 F Pulse Rate 87 94 H 85 Pulse Rate [ From Monitor] Respiratory 32 H 34 H 34 H Rate Blood Pressure 93/59 113/64 93/55 O2 Sat by Pulse 97 97 98 Oximetry 02/14/21 02/14/21 02/14/21 08:30 08:45 09:00 Temperature Pulse Rate 84 89 95 H Pulse Rate [ From Monitor] Respiratory 34 H 34 H 35 H Rate Blood Pressure 91/54 93/59 113/64 O2 Sat by Pulse 99 98 98 Oximetry 02/14/21 09:15 Temperature Pulse Rate 95 H Pulse Rate [ From Monitor] Respiratory 28 H Rate Blood Pressure 116/65 O2 Sat by Pulse 97 Oximetry - Lab 02/14/21 04:00 02/14/21 Unknown Most recent lab results ABG pH 7.374 (7.320-7.450) 02/13/21 05:00 ABG pCO2 51.2 mm Hg 02/12/21 04:41 ABG pO2 69.0 mm Hg (80.0-90.0) L 02/12/21 04:41 ABG HCO3 32.5 mmol/L (20.0-26.0) H 02/12/21 04:41 ABG O2 Saturation 95.2 (0-100) 02/13/21 05:00 Calcium 7.9 mg/dL (8.4-10.2) L 02/14/21 Unknown Phosphorus 3.90 mg/dL (2.5-4.5) 02/13/21 06:40 Magnesium 1.60 mg/dL (1.7-2.3) L 02/13/21 06:40 Urine Creatinine 53.0 mg/dL (0.1-20.0) H 01/30/21 12:00 Urine Sodium 28 mmol/L 01/22/21 22:39 Medications & Allergies - Medications Allergies/Adverse Reactions: Allergies No Known Allergies Allergy (Unverified 03/12/20 13:41) Home Medications: Home Medications Medication Instructions Recorded Confirmed Last Taken Type Clindamycin [Clindamycin CAP] 300 mg PO Q8H #21 cap 03/12/20 Unknown Rx Insulin NPH/Regular [Novolin 70/30] 18 unit SUB-Q TIDAC #1 vial 03/12/20 Unknown Rx Syringe-Needle,Insulin,0.5 ml 1 box MC TID #1 box 03/12/20 Unknown Rx [Insulin Syringe/Needle 0.5 ML] Active Medications: Generic Name Dose Route Start Last Admin Trade Name Freq PRN Reason Stop Dose Admin Acetaminophen 650 mg 01/23/21 02:25 02/11/21 18:20 Acetaminophen 650 Mg Rect Supp [place] 650 mg Q4H PRN Administration Pain, Mild (1-3) Acetaminophen 650 mg 01/24/21 12:58 02/11/21 04:09 Acetaminophen 325 Mg/10.15 Ml Oral Liqd Unit Dose FEEDTUBE 650 mg Q6H PRN Administration Pain, Mild (1-3) Lipase/Protease/Amylase 1 each 01/26/21 14:25 Lipase 10,500/Protease 25,000/Amylase 43,750 (Units) Dr Cap FEEDTUBE PRN PRN For Clogged Feeding Tube Dextrose 50 ml 01/27/21 07:24 Dextrose 50% In Water (25gm) 50 Ml Syringe IV Q30MIN PRN Hypoglycemia Protocol Fentanyl 50 mcg 01/22/21 22:39 02/10/21 13:46 Fentanyl 100 Mcg/2 Ml Inj IV 50 mcg Q10MIN PRN Administration ANALGESIA Heparin Sodium (Porcine) 2,000 unit 02/11/21 09:38 Heparin 10,000 Units/10 Ml Vial IV SAGRARIO PRN hemodialysis Hydrophilic Ointment 1 applic 01/22/21 22:39 Lip Therapy Vaseline TP Q2HR PRN Dry Lips Fentanyl Citrate 2,000 mcg in 100 mls @ 6.124 mls/hr 01/22/21 23:00 02/14/21 07:07 Fentanyl Drip Premix IV 4 mcg/kg/hr TITR CECE 24.494 mls/hr Administration Protocol 1 MCG/KG/HR Propofol 1,000 mg in 100 mls @ 3.674 mls/hr 01/22/21 23:45 02/06/21 18:37 Diprivan 10 Mg/Ml IV 0 mcg/kg/min TITR CECE 0 mls/hr Titration Protocol 5 MCG/KG/MIN Norepinephrine 4 mg in 250 mls @ 7.5 mls/hr 01/28/21 14:00 02/08/21 06:08 Levophed Drip 4 Mg/Ns 250 Ml IV 0 mcg/min TITR CECE 0 mls/hr Titration Protocol 2 MCG/MIN Dexmedetomidine HCl 1,000 mcg/ 260 mls @ 6.368 mls/hr 01/30/21 20:00 02/14/21 08:53 Sodium Chloride IV 1.4 mcg/kg/hr TITRATE CECE 44.579 mls/hr Administration Protocol 0.2 MCG/KG/HR Lorazepam 100 mg/ Sodium 100 mls @ 1 mls/hr 02/06/21 19:00 02/12/21 21:01 Chloride/ Miscellaneous IV 1 mg/hr Information TITR CECE 1 mls/hr Administration Protocol 1 MG/HR Sodium Chloride 100 mls @ 999 mls/hr 02/11/21 09:38 Nacl 0.9% IV SAGRARIO PRN Hypotension Sodium Chloride 500 mls @ 0 mls/hr 02/14/21 10:00 Nacl 0.9% 500 Ml IV 02/14/21 19:00 ONCE CECE As Directed Multi-Ingred Cream/Lotion/Oil/Oint 1 applic 01/22/21 22:39 02/01/21 09:33 Mineral Oil/Petrolatum, White Ophth Oint 3.5 Gm OU 1 applic Q4HR PRN Administration Dry Eye(s) Ondansetron HCl 4 mg 01/23/21 02:17 Ondansetron 4 Mg/2 Ml Inj IV Q8H PRN Nausea And Vomiting Pantoprazole Sodium 40 mg 02/14/21 10:00 Pantoprazole 40 Mg Inj IV BID CECE Simple Syrup 15 ml 01/26/21 14:25 Simple Syrup 15 Ml FEEDTUBE PRN PRN Hypoglycemia Simple Syrup 30 ml 01/26/21 14:25 Simple Syrup 15 Ml FEEDTUBE PRN PRN Hypoglycemia Sodium Bicarbonate 325 mg 01/26/21 14:25 Sodium Bicarbonate 325 Mg Tab FEEDTUBE PRN PRN For Clogged Feeding Tube
[2021-02-14] MEDS ORDERED: SODIUM CHLORIDE 0.9% 100 ML IV PRN (11:00)
[2021-02-14] MEDS: PANTOPRAZOLE 40 MG INJ IV SCH ×2 (11:17→21:15)
--- NOTE | 2021-02-14 12:23 | Progress Note ---
Assessment and Plan This is a 60-year-old male with diabetes mellitus, hypertension, hyperlipidemia, chronic renal insufficiency who was admitted on 01/23 as a COVID-19 PUI with Sepsis, COVID-19 pneumonia, coag negative staph bacteremia, acute hypoxic respiratory failure, and acute kidney injury. Sepsis COVID-19 pneumonia Coag-neg Staph bacteremia Acute hypoxic respiratory failure Acute kidney injury on CKD due to ATN, HD initiated / Hyponatremia Hypokalemia Hypochloremia Metabolic alkalosis Diabetes mellitus Hypertension Hyperlipidemia Elevated D-dimer -CCM, nephrology, infectious disease consulted, appreciate recommendations -Antibiotic therapy -COVID-19 PCR positive, Pneumonia on CXR -Steroid therapy, s/p remdesivir -Mechanical ventilation, wean as tolerated -VAP bundle -HD per nephrology -Trend BMP, cBC -Bilateral lower extremity and upper extremity Doppler ultrasound negative for DVT/SVT -off Lovenox due to anemia -SSI and Long-acting insulin -Accu-Cheks every 6 while on tube feedings -Hold home antihypertensive regimen for now as he is still needing vasopressor support -Blood pressure monitoring per protocol -s/p NaHCO3 gtt -Sedated with Precedex, Ativan, fentanyl DVT/GI prophylaxis: SCDs to bilateral lower extremities while in bed, heparin subcu, PPI Dispo: ICU The high probability of a clinically significant, sudden or life threatening deterioration of the [multi] system(s) required my full and direct attention, intervention and personal management. The aggregate critical care time was [32] minutes. This time is in addition to time spent performing reported procedures but includes the following: [x] Data Review and interpretation [x] Patient assessment and monitoring of vital signs [x] Documentation [x] Medication orders and management Brief History This is a 60-year-old male with diabetes mellitus, hypertension, hyperlipidemia, chronic renal insufficiency presents to the emergency department on 01/23 with shortness of breath, fevers chills, loss of smell and taste and body aches for the past 3 days via EMS. Per EMS patient's oxygen saturation on room air was 50% and after being placed on nonrebreather it increased 75%. Upon arrival to the emergency department patient was being bagged by EMS. In the emergency room patient was intubated due to severe hypoxia, increased work of breathing and lethargy. Patient was sedated on propofol and fentanyl. Patient presented with fever, tachycardia, tachypnea and acute hypoxic respiratory failure with PNA on CXR meeting Sepsis criteria. Lab work in the emergency department revealed hyponatremia, hypokalemia, hypochloremia, elevated CR/BUN and CXR showed bilateral pneumonia. Patient was admitted to the hospital service as a COVID-19 PUI with consults to infectious disease, nephrology and critical care medicine. 01/24/2021: Patient is intubated and sedated, patient is positive for COVID-19 infection. ID was consulted and put on dexamethasone and remdesivir. Patient has DEISI and nephrology is following. Creatinine stable, patient is urinating. Discussed with nephrology and he is okay with remdesivir. Pulmonary critical care is following for his vent setting. PEEP of 8 and FiO2 of 85%. Patient was alert and off sedatives. 01/25/2021; patient is intubated and on mechanical ventilation. Continue with tr eatment of Covid. Nephrology and ID is following. Pulmonary is following for vent management 01/26: Remains on mechanical ventilation and [facility] increased his PEEP. [facility] has ordered Precedex for sedation. Possibly need to prone this p.m. No acute events reported overnight. This morning his D-dimer is greater than 10,000 and we have started him on Lovenox 120 mg daily. Nutrition has been consulted for initiation of tube feedings. Patient remains sedated on propofol 40 and fentanyl for the time my examination this morning. 01/27: Continue Lovenox, remdesivir and empiric antibiotics. Patient had a T-max of 101 overnight. The time of examination patient is on CMV 500/18/14/0.61. Kidney function slightly worsened. Sedated on fentanyl ground-level fall and Precedex. Nephrology has increased IV fluids to 100 ml/hr. Continue to trend BMP and CBC. Sedation vacation attempt by RN this AM. 01/28: Patient completed antibiotics today [facility] will paralyze patient and increase sedation. PICC line ordered for possible vasopressor therapy need. Patient's D-dimer remains greater than 10,000 and he still has hyperchloremia. Patient's kidney function has improved today. May need to prone the patient if no improvement in oxygenation is noted in the next 24 hours. The time of my examination patient is sedated with propofol, fentanyl and Precedex and is on assist control 500/18/16/0.80 hypoxic on ABG on 60% FiO2. 01/29: Patient was started on Nimbex yesterday and his ABG this morning showed respiratory acidosis with hypercapnia and his respiratory rate was increased. We will obtain a repeat ABG this afternoon. This morning patient is hypernatremic, hyperkalemic and hyperchloremic. His potassium has been corrected with the management and will obtain repeat BMP tomorrow. His kidney functions have remained stable and we will await nephrology's input. No acute events reported overnight. This morning the time my examination patient sedated with propofol, Precedex and fentanyl and paralyzed with Nimbex. He is on assist control 500/24/16 0.80. 01/30: This morning patient is hypokalemic again and was given Kayexalate. Patient has hypernatremia and hyper chloremia and his renal function is slightly worse after receiving Lasix yesterday. His D-dimer remains greater than 10,000 and he is still on a paralytic. Patient is sedated on Precedex, fentanyl, propofol. Mechanical ventilation settings seven-point 2/69/61/28. [facility] has decided to continue paralytics for 48 more hours and will attempt proning the patient. Increased free water flushes 300 cc every 4 hours. Patient states has restarted his antibiotics cefepime and vancomycin and recultured. 01/31/21 Hyperkalemia, Treated 02/01/21 Hyperkalemia, Treated 02/02: Patient's kidney function continues to worsen and a stat BMP this morning shows BUN/creatinine 20/6.1 and he remains hypocalcemic and hypernatremic, hypokalemic and hypochloremic. Patient received 2 g of calcium gluconate and Kayexalate and his repeat potassium was 4.3 this afternoon. He remains antibiotic therapy and steroids. Nephrology has placed the patient on bicarb drip given metabolic acidosis and has decided to hold off hemodialysis till tomorrow.The time my examination patient is sedated on fentanyl, Precedex and on assist control 500/20/12/0.70. s/p paralytic. 02/03: Today patient's ABG shows respiratory acidosis however it is improving, hy pernatremia, hyperchloremia, metabolic acidosis on BMP, worsening kidney function BUN/creatinine 130/9.2 with hyperphosphatemia. Patient received a Vas- Cath to his right IJ for initiation of dialysis. At the time of my examination patient remains sedated on fentanyl, propofol and Precedex with vasopressor support with Levophed at 2. 02/04: At the time of examination patient was on assist control tidal volume 500, rate 40, PEEP of 12, FiO2 85%. Patient had a T-max of 100.9 and infectious disease has stopped his vancomycin given negative MRSA. This afternoon patient respiked his temperature and was pancultured again. Patient was started on hemodialysis yesterday and will receive HD again today. Patient is sedated on Precedex, propofol, fentanyl and remains on Levophed. He is on assist control tidal volume 500, rate of 30, PEEP of 12, FiO2 of 85%. Patient still has some respiratory acidosis however his hypernatremia and hyperchloremia have improved and his metabolic acidosis has resolved. Patient will receive hemodialysis today 02/05: Patient continues to have low-grade fever temp this morning time examination he was on assist control tidal volume 500, and sedated on propofol/f entanyl/Precedex and is on Levophed. Hemodialysis per nephrology. Antibiotics per ID. Patient's blood culture from 02/04 grew gram-positive cocci in clusters in 1/2 bottles and he was started on vancomycin. 02/06: Patients ABG showed respiratory acidosis and the tracings were changed however a repeat ABG showed showed acidosis.[facility] will start a bicarb drip after giving 2 amps of bicarb push. Yesterday patient blood cultures grew gram- positive cocci and he was started on vancomycin. At the time my examination patient was on assist control tidal volume 550, rate 34, PEEP 16, FiO2 90% and sedated on fentanyl, Precedex, propofol elevated pressure support with Levophed. Bilateral lower extremity Doppler ultrasounds done yesterday showed no evidence of DVT/SVT. 02/07/2021; patient is still on the vent with PEEP of 16 and FiO2 of 90%, sedated with fentanyl Precedex and propofol. Patient still requiring Levophed. Patient was sedated yesterday and was given bicarb push. Blood culture grew gram-positive cocci in clusters and he is on vancomycin, will follow identification. 02/08/2021;patient is still on the vent with PEEP of 16 and FiO2 of 90%, sedated with fentanyl Precedex and propofol. Patient still requiring Levophed. Patient was sedated yesterday and was given bicarb push. Blood culture grew gram- positive cocci in clusters and he is on vancomycin, will follow identification. Patient is currently on dialysis. Patient is anemic transfuse if hemoglobin is below 7. 12: This morning patient has slight hypokalemia, hypochorlemia, hyponatremia and metabolic alkalosis. [facility] will continue bicarb gtt given that the patient does not have HD access at this time. We will replete the potassium and recheck BMP in the AM. We will type and cross in anticipation of PRBC transfusion. This morning he is sedated on Ativan, fentayl, and precedex. Will obtain a triglyceride level today in hopes to resume propofol. Patient is alkalotic and BMP however we will continue with bicarb drip per [facility] given that the patient does not have any access for hemodialysis. Anticipate replacing hemodialysis catheter tomorrow or Tuesday. The time my examination he is on AC TV 550, Rate 34, PeeP 16, FiO2 .65. 02/10: A.m. labs still pending, [facility] plans to replace HD catheter tomorrow as the patient is still febrile however his fever curve is trending down, remains on a bicarb drip and on vancomycin. Today at the time my examination patient was sedated on Precedex, Ativan and fentanyl and he is on assist control tidal 11/04/1951, rate 34, PEEP 16, FiO2 65%. Overnight patient was hypotensive and received 1 dose of midodrine. 02/11: Patient is still having low-grade temperatures that we will obtain a bilateral lower upper extremity venous Doppler ultrasound given that his repeat cultures have been negative so far. Patient received a Vas-Cath today for hemodialysis. The time examination patient is on assist control tidal volume 550, rate of 34, PEEP of 16 and FiO2 of 75%. Patient was hypokalemic and anemic yesterday which were both repleted with potassium and 1 unit PRBC. 02/12: Patient had a 12-second run of V. tach today, his potassium and magnesium were low which was repleted. Renal adjusted potassium bath. We will obtain a triglyceride level in hopes to restarting to prevent as needed. This morning at the time my examination patient was sedated on fentanyl, Ativan and Precedex and remained on a bicarb drip. He was on assist control tidal volume 550, rate 34, PEEP 16, FiO2 85%. We will obtain a occult stool given no evident source of bleeding and need for transfusion. Anemia possibly due to hemodialysis. 02/13: Patient's T-max was 100.7, remains on fentanyl, Ativan, Precedex and bicarb drip this morning at some examination on assist control tidal volume 550, rate 34, PEEP 16 and FiO2 85%. On the labs this morning is slightly hypokalemic and remains metabolic alkalotic on BMP. His occult was positive. His Lovenox and consult GI. Patient received hemodialysis today. 02/14: cont PPI, GI recommended to scope now, monitor clinically, tolerating TF, remains intubated. Hb 6.9 today - transfuse another unit. very poor prognosis. Hospitalist Physical General appearance: Present: no acute distress, well-nourished, other (Sedated on mechanical ventilation) - EENT Eyes: Present: PERRL ENT: poor dentition - Neck Neck: Present: normal ROM - Respiratory Respiratory effort: normal - Cardiovascular Rhythm: regular Heart Sounds: Present: S1 & S2. Absent: systolic murmur, diastolic murmur - Extremities Extremities: no ischemia, pulses intact, pulses symmetrical, normal temperature, normal color Peripheral Pulses: within normal limits - Abdominal General gastrointestinal: soft, non-tender, non-distended, normal bowel sounds - Integumentary Integumentary: Present: warm, dry - Psychiatric Psychiatric: other (sedated) - Neurologic Neurologic: moves all extremities, other (sedated) - Allied Health Allied health notes reviewed: nursing, RT, social work Subjective Date of service: 02/14/21 Principal diagnosis: DEISI Interval history: Patient seen and examined. Medical records and medication list reviewed. h/h dropped today, remains intubated Discussed plan of care at bedside with patient's RN. Objective - Constitutional Vitals: Vital Signs - 12hr 02/14/21 02/14/21 02/14/21 00:30 00:45 01:00 Temperature Pulse Rate 97 H 96 H 94 H Pulse Rate [ From Monitor] Respiratory 33 H 29 H 29 H Rate Blood Pressure 101/61 98/61 102/59 O2 Sat by Pulse 97 97 97 Oximetry 02/14/21 02/14/21 02/14/21 01:15 01:30 01:45 Temperature Pulse Rate 92 H 90 89 Pulse Rate [ From Monitor] Respiratory 29 H 31 H 34 H Rate Blood Pressure 98/58 96/58 97/60 O2 Sat by Pulse 97 97 97 Oximetry 02/14/21 02/14/21 02/14/21 02:00 02:15 02:30 Temperature Pulse Rate 88 87 87 Pulse Rate [ From Monitor] Respiratory 31 H 33 H 34 H Rate Blood Pressure 97/59 97/58 97/59 O2 Sat by Pulse 97 98 99 Oximetry 02/14/21 02/14/21 02/14/21 02:45 03:00 03:15 Temperature Pulse Rate 85 85 85 Pulse Rate [ From Monitor] Respiratory 34 H 34 H 34 H Rate Blood Pressure 90/58 91/56 96/58 O2 Sat by Pulse 99 99 99 Oximetry 02/14/21 02/14/21 02/14/21 03:21 03:30 03:45 Temperature Pulse Rate 85 93 H 88 Pulse Rate [ From Monitor] Respiratory 24 33 H Rate Blood Pressure 96/58 123/75 102/63 O2 Sat by Pulse 99 95 97 Oximetry 02/14/21 02/14/21 02/14/21 04:00 04:15 04:30 Temperature 99.5 F Pulse Rate 91 H 89 91 H Pulse Rate [ 91 H From Monitor] Respiratory 33 H 33 H 32 H Rate Blood Pressure 103/63 99/60 101/63 O2 Sat by Pulse 98 98 97 Oximetry 02/14/21 02/14/21 02/14/21 04:45 05:00 05:15 Temperature Pulse Rate 93 H 91 H 91 H Pulse Rate [ From Monitor] Respiratory 29 H 28 H 32 H Rate Blood Pressure 104/63 104/61 100/60 O2 Sat by Pulse 98 98 98 Oximetry 02/14/21 02/14/21 02/14/21 05:30 05:45 06:00 Temperature Pulse Rate 101 H 101 H 96 H Pulse Rate [ From Monitor] Respiratory 33 H 34 H 34 H Rate Blood Pressure 100/60 95/54 93/55 O2 Sat by Pulse 88 95 96 Oximetry 02/14/21 02/14/21 02/14/21 06:15 06:30 06:45 Temperature Pulse Rate 93 H 90 89 Pulse Rate [ From Monitor] Respiratory 34 H 34 H 31 H Rate Blood Pressure 92/53 86/51 95/56 O2 Sat by Pulse 96 96 96 Oximetry 02/14/21 02/14/21 02/14/21 07:00 07:15 07:30 Temperature Pulse Rate 90 88 88 Pulse Rate [ From Monitor] Respiratory 31 H 34 H 31 H Rate Blood Pressure 94/56 91/56 95/57 O2 Sat by Pulse 96 96 96 Oximetry 02/14/21 02/14/21 02/14/21 07:45 08:00 08:15 Temperature 98.9 F Pulse Rate 87 94 H 85 Pulse Rate [ From Monitor] Respiratory 32 H 34 H 34 H Rate Blood Pressure 93/59 113/64 93/55 O2 Sat by Pulse 97 97 98 Oximetry 02/14/21 02/14/21 02/14/21 08:30 08:45 09:00 Temperature Pulse Rate 84 89 95 H Pulse Rate [ From Monitor] Respiratory 34 H 34 H 35 H Rate Blood Pressure 91/54 93/59 113/64 O2 Sat by Pulse 99 98 98 Oximetry 02/14/21 02/14/21 02/14/21 09:15 09:30 09:45 Temperature Pulse Rate 95 H 91 H 90 Pulse Rate [ From Monitor] Respiratory 28 H 34 H 34 H Rate Blood Pressure 116/65 97/57 92/56 O2 Sat by Pulse 97 97 97 Oximetry 02/14/21 02/14/21 02/14/21 10:00 10:15 10:30 Temperature Pulse Rate 89 88 88 Pulse Rate [ From Monitor] Respiratory 30 H 34 H 34 H Rate Blood Pressure 93/56 90/55 93/55 O2 Sat by Pulse 96 95 95 Oximetry 02/14/21 02/14/21 02/14/21 10:45 11:00 11:15 Temperature Pulse Rate 87 85 84 Pulse Rate [ From Monitor] Respiratory 34 H 34 H 9 L Rate Blood Pressure 93/56 85/51 91/54 O2 Sat by Pulse 96 97 97 Oximetry 02/14/21 02/14/21 11:32 11:37 Temperature Pulse Rate 84 Pulse Rate [ 91 H From Monitor] Respiratory 33 H Rate Blood Pressure O2 Sat by Pulse 98 Oximetry - Labs CBC & Chem 7: 02/14/21 04:00 02/14/21 Unknown Labs: Abnormal lab results 02/13/21 02/13/21 02/13/21 Range/Units 12:24 16:57 23:32 RBC (3.65-5.03) M/mm3 Hgb (11.8-15.2) gm/dl Hct (35.5-45.6) % MCV (84-94) fl MCH (28-32) pg Chloride (98-107) mmol/L Carbon Dioxide (22-30) mmol/L BUN (9-20) mg/dL Creatinine (0.8-1.3) mg/dL Glucose (75-100) mg/dL POC Glucose 141 H 156 H 161 H (70-105) mg/dL Calcium (8.4-10.2) mg/dL Crossmatch 02/14/21 02/14/21 02/14/21 Range/Units 04:00 05:41 11:00 RBC 2.14 L (3.65-5.03) M/mm3 Hgb 6.9 L (11.8-15.2) gm/dl Hct 20.7 L (35.5-45.6) % MCV 97 H (84-94) fl MCH 33 H (28-32) pg Chloride (98-107) mmol/L Carbon Dioxide (22-30) mmol/L BUN (9-20) mg/dL Creatinine (0.8-1.3) mg/dL Glucose (75-100) mg/dL POC Glucose 143 H (70-105) mg/dL Calcium (8.4-10.2) mg/dL Crossmatch See Detail 02/14/21 Range/Units Unknown RBC (3.65-5.03) M/mm3 Hgb (11.8-15.2) gm/dl Hct (35.5-45.6) % MCV (84-94) fl MCH (28-32) pg Chloride 96.9 L (98-107) mmol/L Carbon Dioxide 33 H (22-30) mmol/L BUN 40 H (9-20) mg/dL Creatinine 5.2 H (0.8-1.3) mg/dL Glucose 152 H (75-100) mg/dL POC Glucose (70-105) mg/dL Calcium 7.9 L (8.4-10.2) mg/dL Crossmatch HEART Score - HEART Score Risk factors: 1-2 risk factors Troponin: < normal limit - Critical Actions Critical Actions: 0-3 pts:0.9-1.7%risk of adverse cardiac event.Candidate for discharge
--- NOTE | 2021-02-14 12:57 | Progress Note ---
Assessment and Plan Cultures: Blood culture 02/08/2021 no growth today SARS CoV2 PCR positive 01/22/2021 respiratory culture: Usual respiratory dillon Blood Culture 01/30/2021 no growth today Urine culture 01/30/2021 no growth today Sputum culture 01/30/2021 usual respiratory dillon Blood culture 02/04/2021 coag negative staph 2 of 4 Urine culture 02/04/2021 no growth Sputum culture 02/04/2021 Maegan albicans Assessment: 60 year old male with history of morbid obesity admitted on 01/22/2021 secondary to 3-day history of worsening shortness of breath associated with fever, chills, loss of smell and taste: #Severe sepsis with septic shock: resolved, off pressors. #Coag-neg Staph bacteremia: new blood culture on 02/04/2021 with GPC 2 of 4 bottles, possible real. Completed treatment 7 days of vancomycin. #Critical COVID-19 pneumonia: Patient remains intubated. Chest x-ray with bilateral airspace disease. Completed remdesivir, steroids, empiric abx course. #Acute respiratory failure: Remains on the vent. #Transaminitis: Likely secondary to COVID-19. resolved #DEISI: requiring hemodialysis. Recommendations: -off abx. monitor for fever -poor prognosis Melida Byrne MD, FACP [facility] O: [phone] F: [phone] Subjective Date of service: 02/14/21 Principal diagnosis: DEISI Interval history: No fever. Remains on the vent. Objective - Exam Narrative Exam: Physical Exam (reviewed in chart to minimize risk of transmission) Constitutional: deferred Head, Ears, Nose: deferred Eyes: deferred Neck: deferred Oral: deferred Cardiovascular: deferred Respiratory: deferred GI: deferred Musculoskeletal: deferred Skin: deferred Hem/Lymphatic: deferred Psych: deferred Neurological: deferred - Constitutional Vitals: Vital Signs Temp Pulse Resp BP Pulse Ox 98.9 F 84 24 92/56 97 02/14/21 08:00 02/14/21 12:45 02/14/21 12:45 02/14/21 12:45 02/14/21 12:45 Temperature -Last 24 Hours Temperature 98.9 F Temperature 99.5 F Temperature 99.2 F Temperature 99.2 F Temperature 98.5 F Temperature 99.8 F - Labs CBC & Chem 7: 02/14/21 04:00 02/14/21 Unknown Labs: Abnormal lab results 02/13/21 02/13/21 02/13/21 Range/Units 12:24 16:57 23:32 RBC (3.65-5.03) M/mm3 Hgb (11.8-15.2) gm/dl Hct (35.5-45.6) % MCV (84-94) fl MCH (28-32) pg Chloride (98-107) mmol/L Carbon Dioxide (22-30) mmol/L BUN (9-20) mg/dL Creatinine (0.8-1.3) mg/dL Glucose (75-100) mg/dL POC Glucose 141 H 156 H 161 H (70-105) mg/dL Calcium (8.4-10.2) mg/dL Crossmatch 02/14/21 02/14/21 02/14/21 Range/Units 04:00 05:41 11:00 RBC 2.14 L (3.65-5.03) M/mm3 Hgb 6.9 L (11.8-15.2) gm/dl Hct 20.7 L (35.5-45.6) % MCV 97 H (84-94) fl MCH 33 H (28-32) pg Chloride (98-107) mmol/L Carbon Dioxide (22-30) mmol/L BUN (9-20) mg/dL Creatinine (0.8-1.3) mg/dL Glucose (75-100) mg/dL POC Glucose 143 H (70-105) mg/dL Calcium (8.4-10.2) mg/dL Crossmatch See Detail 02/14/21 Range/Units Unknown RBC (3.65-5.03) M/mm3 Hgb (11.8-15.2) gm/dl Hct (35.5-45.6) % MCV (84-94) fl MCH (28-32) pg Chloride 96.9 L (98-107) mmol/L Carbon Dioxide 33 H (22-30) mmol/L BUN 40 H (9-20) mg/dL Creatinine 5.2 H (0.8-1.3) mg/dL Glucose 152 H (75-100) mg/dL POC Glucose (70-105) mg/dL Calcium 7.9 L (8.4-10.2) mg/dL Crossmatch
--- NOTE | 2021-02-14 17:08 | Event Note ---
Date: 02/14/21 full GI consult dictated - ask to see pt w/ anemia and heme + stool - h/h has remained unchanged w/o signs active bleeding - given current med issues no plans to scope or other intervenyion - ppi qd - recall if situation changes
--- NOTE | 2021-02-14 20:22 | Progress Note ---
Assessment and Plan Imp: 1. Covid-19 2. Viral pneumonia 3. ARDS 4. Acute respiratory failure, hypoxia 5. Morbid obesity 6. DEISI Rec: 1. Cont. current management; wean FiO2 then PEEP; likely will need trach at some point 2. TFs, GI PPx, SCDs 3. Further plans pending clinical course; prognosis poor CCt 31 minutes Subjective Date of service: 02/14/21 Principal diagnosis: DEISI Interval history: No events. Sedated on ventilator, 70% FiO2 and PEEP of +16. On HD and receiving 1 unit of PRBCs. Active Medications Acetaminophen (Acetaminophen 650 Mg Rect Supp) 650 mg MS Q4H PRN PRN Reason: Pain, Mild (1-3) Last Admin: 02/11/21 18:20 Dose: 650 mg Documented by: Acetaminophen (Acetaminophen 325 Mg/10.15 Ml Oral Liqd Unit Dose) 650 mg F EEDTUBE Q6H PRN PRN Reason: Pain, Mild (1-3) Last Admin: 02/11/21 04:09 Dose: 650 mg Documented by: Lipase/Protease/Amylase (Lipase 10,500/Protease 25,000/Amylase 43,750 (Units) Dr Cap) 1 each FEEDTUBE PRN PRN PRN Reason: For Clogged Feeding Tube Dextrose (Dextrose 50% In Water (25gm) 50 Ml Syringe) 50 ml IV Q30MIN PRN; Protocol PRN Reason: Hypoglycemia Fentanyl (Fentanyl 100 Mcg/2 Ml Inj) 50 mcg IV Q10MIN PRN PRN Reason: ANALGESIA Last Admin: 02/10/21 13:46 Dose: 50 mcg Documented by: Heparin Sodium (Porcine) (Heparin 10,000 Units/10 Ml Vial) 2,000 unit IV SAG[place]IO PRN PRN Reason: hemodialysis Hydrophilic Ointment (Lip Therapy Vaseline) 1 applic TP Q2HR PRN PRN Reason: Dry Lips Fentanyl Citrate (Fentanyl Drip Premix) 2,000 mcg in 100 mls @ 6.124 mls/hr IV TITR CECE; Protocol Last Admin: 02/14/21 16:48 Dose: 4 mcg/kg/hr, 24.494 mls/hr Documented by: Propofol (Diprivan 10 Mg/Ml) 1,000 mg in 100 mls @ 3.674 mls/hr IV TITR CECE; Protocol Last Titration: 02/06/21 18:37 Dose: 0 mcg/kg/min, 0 mls/hr Documented by: Norepinephrine (Levophed Drip 4 Mg/Ns 250 Ml) 4 mg in 250 mls @ 7.5 mls/hr IV TITR CECE; Protocol Last Titration: 02/08/21 06:08 Dose: 0 mcg/min, 0 mls/hr Documented by: Dexmedetomidine HCl 1,000 mcg/ (Sodium Chloride) 260 mls @ 6.368 mls/hr IV TITR ATE CECE; Protocol Last Admin: 02/14/21 15:13 Dose: 1.4 mcg/kg/hr, 44.579 mls/hr Documented by: Lorazepam 100 mg/ Sodium Chloride/ Miscellaneous Information 100 mls @ 1 mls/hr IV TITR CECE; Protocol Last Admin: 02/12/21 21:01 Dose: 1 mg/hr, 1 mls/hr Documented by: Sodium Chloride (Nacl 0.9%) 100 mls @ 999 mls/hr IV [place] PRN PRN Reason: Hypotension Multi-Ingred Cream/Lotion/Oil/Oint (Mineral Oil/Petrolatum, White Ophth Oint 3.5 Gm) 1 applic OU Q4HR PRN PRN Reason: Dry Eye(s) Last Admin: 02/01/21 09:33 Dose: 1 applic Documented by: Ondansetron HCl (Ondansetron 4 Mg/2 Ml Inj) 4 mg IV Q8H PRN PRN Reason: Nausea And Vomiting Pantoprazole Sodium (Pantoprazole 40 Mg Inj) 40 mg IV BID [facility] Last Admin: 02/14/21 11:17 Dose: 40 mg Documented by: Simple Syrup (Simple Syrup 15 Ml) 15 ml FEEDTUBE PRN PRN PRN Reason: Hypoglycemia Simple Syrup (Simple Syrup 15 Ml) 30 ml FEEDTUBE PRN PRN PRN Reason: Hypoglycemia Sodium Bicarbonate (Sodium Bicarbonate 325 Mg Tab) 325 mg FEEDTUBE PRN PRN PRN Reason: For Clogged Feeding Tube Objective Vital Signs - 12hr 02/14/21 02/14/21 02/14/21 08:30 08:45 09:00 Temperature Pulse Rate 84 89 95 H Pulse Rate [ From Monitor] Respiratory 34 H 34 H 35 H Rate Blood Pressure 91/54 93/59 113/64 O2 Sat by Pulse 99 98 98 Oximetry 02/14/21 02/14/21 02/14/21 09:15 09:30 09:45 Temperature Pulse Rate 95 H 91 H 90 Pulse Rate [ From Monitor] Respiratory 28 H 34 H 34 H Rate Blood Pressure 116/65 97/57 92/56 O2 Sat by Pulse 97 97 97 Oximetry 02/14/21 02/14/21 02/14/21 10:00 10:15 10:30 Temperature Pulse Rate 89 88 88 Pulse Rate [ From Monitor] Respiratory 30 H 34 H 34 H Rate Blood Pressure 93/56 90/55 93/55 O2 Sat by Pulse 96 95 95 Oximetry 02/14/21 02/14/21 02/14/21 10:45 11:00 11:15 Temperature Pulse Rate 87 85 84 Pulse Rate [ From Monitor] Respiratory 34 H 34 H 9 L Rate Blood Pressure 93/56 85/51 91/54 O2 Sat by Pulse 96 97 97 Oximetry 02/14/21 02/14/21 02/14/21 11:30 11:32 11:37 Temperature Pulse Rate 84 84 Pulse Rate [ 91 H From Monitor] Respiratory 27 H 33 H Rate Blood Pressure 88/54 O2 Sat by Pulse 97 98 Oximetry 02/14/21 02/14/21 02/14/21 11:40 11:45 12:00 Temperature 98.9 F Pulse Rate 87 84 87 Pulse Rate [ From Monitor] Respiratory 24 34 H Rate Blood Pressure 96/58 90/55 96/58 O2 Sat by Pulse 96 97 98 Oximetry 02/14/21 02/14/21 02/14/21 12:15 12:30 12:45 Temperature Pulse Rate 83 83 84 Pulse Rate [ From Monitor] Respiratory 28 H 16 24 Rate Blood Pressure 89/53 90/52 92/56 O2 Sat by Pulse 98 98 97 Oximetry 02/14/21 02/14/21 02/14/21 13:00 13:15 13:30 Temperature Pulse Rate 89 89 87 Pulse Rate [ From Monitor] Respiratory 25 H 34 H 34 H Rate Blood Pressure 96/60 103/58 96/58 O2 Sat by Pulse 97 97 98 Oximetry 02/14/21 02/14/21 02/14/21 13:45 14:00 14:15 Temperature Pulse Rate 87 86 87 Pulse Rate [ From Monitor] Respiratory 35 H 34 H 34 H Rate Blood Pressure 93/56 93/56 95/57 O2 Sat by Pulse 96 96 95 Oximetry 0402/14/21 02/14/21 14:30 14:45 15:00 Temperature Pulse Rate 86 86 84 Pulse Rate [ From Monitor] Respiratory 34 H 35 H 34 H Rate Blood Pressure 95/58 94/56 94/56 O2 Sat by Pulse 94 95 95 Oximetry 02/14/21 02/14/21 02/14/21 15:15 15:30 15:45 Temperature Pulse Rate 83 84 84 Pulse Rate [ From Monitor] Respiratory 35 H 34 H 35 H Rate Blood Pressure 93/56 96/56 93/57 O2 Sat by Pulse 96 95 96 Oximetry 02/14/21 02/14/21 02/14/21 15:55 16:00 16:15 Temperature 98.4 F Pulse Rate 86 84 84 Pulse Rate [ From Monitor] Respiratory 34 H 35 H Rate Blood Pressure 94/58 94/57 93/58 O2 Sat by Pulse 96 97 96 Oximetry 02/14/21 02/14/21 02/14/21 16:30 16:45 17:00 Temperature Pulse Rate 84 86 85 Pulse Rate [ From Monitor] Respiratory 35 H 35 H 34 H Rate Blood Pressure 94/58 96/57 96/55 O2 Sat by Pulse 96 95 96 Oximetry 02/14/21 02/14/21 02/14/21 17:15 17:30 17:45 Temperature Pulse Rate 85 86 86 Pulse Rate [ From Monitor] Respiratory 34 H 34 H 34 H Rate Blood Pressure 95/57 92/57 97/59 O2 Sat by Pulse 96 95 95 Oximetry 02/14/21 02/14/21 02/14/21 18:00 18:15 18:30 Temperature Pulse Rate 87 86 85 Pulse Rate [ From Monitor] Respiratory 34 H 34 H 34 H Rate Blood Pressure 102/58 100/58 96/58 O2 Sat by Pulse 95 95 95 Oximetry 02/14/21 02/14/21 02/14/21 18:45 18:54 18:55 Temperature 99.3 F Pulse Rate 84 85 85 Pulse Rate [ From Monitor] Respiratory 34 H 35 H Rate Blood Pressure 97/57 100/58 100/58 O2 Sat by Pulse 96 95 Oximetry 02/14/21 02/14/21 02/14/21 19:00 19:09 19:15 Temperature 99.4 F Pulse Rate 84 83 83 Pulse Rate [ From Monitor] Respiratory 35 H 24 Rate Blood Pressure 100/58 110/60 110/60 O2 Sat by Pulse 96 96 Oximetry 02/14/21 02/14/21 02/14/21 19:16 19:19 19:24 Temperature 99.4 F Pulse Rate 82 82 82 Pulse Rate [ From Monitor] Respiratory 24 21 Rate Blood Pressure 110/60 110/60 108/61 O2 Sat by Pulse 96 96 97 Oximetry 02/14/21 02/14/21 02/14/21 19:30 19:45 19:46 Temperature 99.5 F Pulse Rate 83 86 Pulse Rate [ From Monitor] Respiratory 15 Rate Blood Pressure 105/61 118/76 O2 Sat by Pulse 96 Oximetry 02/14/21 02/14/21 19:51 20:00 Temperature 99.5 F Pulse Rate Pulse Rate [ 91 H From Monitor] Respiratory 34 H Rate Blood Pressure O2 Sat by Pulse 95 Oximetry Constitutional: comatose Eyes: non-icteric ENT: other (orally intubated and sedated) Neck: supple Effort: mildly labored Ascultation: Bilateral: clear Cardiovascular: regular rate and rhythm (no mrg) Gastrointestinal: normoactive bowel sounds, soft, non-tender, non-distended Integumentary: normal Extremities: no cyanosis, no edema, pink and warm Neurologic: unable to assess CBC and BMP: 02/14/21 04:00 02/14/21 Unknown ABG, PT/INR, D-dimer: ABG ABG pH 7.374 (7.320-7.450) 02/13/21 05:00 POC ABG pCO2 60.8 mmHg (32.0-48.0) H 02/13/21 05:00 ABG pCO2 51.2 mm Hg 02/12/21 04:41 POC ABG pO2 76.4 mmHg (83-108) L 02/13/21 05:00 ABG pO2 69.0 mm Hg (80.0-90.0) L 02/12/21 04:41 POC ABG HCO3 34.7 02/13/21 05:00 ABG O2 Saturation 95.2 (0-100) 02/13/21 05:00 PT/INR, D-dimer PT 14.9 Sec. (12.2-14.9) 02/11/21 08:27 INR 1.17 (0.87-1.13) H 02/11/21 08:27 D-Dimer 1722.16 ng/mlDDU (0-234) H 02/13/21 07:38 Abnormal lab findings: Abnormal Labs 01/22/21 01/22/21 01/22/21 22:39 22:57 22:57 WBC RBC Hgb Hct MCV MCH MCHC RDW Plt Count Lymph % (Auto) 6.6 L Lymph # (Auto) 0.5 L Seg Neutrophils % 87.6 H Seg Neuts % (Manual) Lymphocytes % (Manual) Nucleated RBC % Seg Neutrophils # Seg Neutrophils # Man Lymphocytes # (Manual) Eosinophils # (Manual) INR D-Dimer ABG pH POC ABG pCO2 POC ABG pO2 ABG pO2 ABG HCO3 ABG O2 Saturation ABG Base Excess ABG Hemoglobin ABG Oxyhemoglobin ABG Sodium ABG Potassium ABG Chloride ABG Glucose Oxyhemoglobin Carboxyhemoglobin Sodium 129 L Potassium 3.4 L Chloride 90.4 L Carbon Dioxide BUN 34 H Creatinine 1.5 H Glucose 146 H POC Glucose Hemoglobin A1c Lactic Acid Calcium 7.8 L Phosphorus Magnesium Ferritin Total Bilirubin AST 75 H ALT 57 H Lactate Dehydrogenase C-Reactive Protein Albumin 2.9 L Triglycerides Arterial Blood Glucose Arterial Blood Ionized Calcium Urine Creatinine 301.2 H Coronavirus (PCR) Crossmatch 01/22/21 01/22/21 01/22/21 22:57 22:57 22:57 WBC RBC Hgb Hct MCV MCH MCHC RDW Plt Count Lymph % (Auto) Lymph # (Auto) Seg Neutrophils % Seg Neuts % (Manual) Lymphocytes % (Manual) Nucleated RBC % Seg Neutrophils # Seg Neutrophils # Man Lymphocytes # (Manual) Eosinophils # (Manual) INR D-Dimer 1173.89 H ABG pH POC ABG pCO2 POC ABG pO2 ABG pO2 ABG HCO3 ABG O2 Saturation ABG Base Excess ABG Hemoglobin ABG Oxyhemoglobin ABG Sodium ABG Potassium ABG Chloride ABG Glucose Oxyhemoglobin Carboxyhemoglobin Sodium Potassium Chloride Carbon Dioxide BUN Creatinine Glucose 149 H POC Glucose Hemoglobin A1c Lactic Acid 2.10 H* Calcium Phosphorus Magnesium Ferritin Total Bilirubin AST ALT Lactate Dehydrogenase 685 H C-Reactive Protein 30.40 H Albumin Triglycerides Arterial Blood Glucose Arterial Blood Ionized Calcium Urine Creatinine Coronavirus (PCR) Crossmatch 01/22/21 01/23/21 01/23/21 22:57 08:41 10:01 WBC RBC Hgb Hct MCV MCH MCHC RDW Plt Count Lymph % (Auto) Lymph # (Auto) Seg Neutrophils % Seg Neuts % (Manual) Lymphocytes % (Manual) Nucleated RBC % Seg Neutrophils # Seg Neutrophils # Man Lymphocytes # (Manual) Eosinophils # (Manual) INR D-Dimer ABG pH POC ABG pCO2 POC ABG pO2 ABG pO2 ABG HCO3 ABG O2 Saturation ABG Base Excess ABG Hemoglobin ABG Oxyhemoglobin ABG Sodium ABG Potassium ABG Chloride ABG Glucose Oxyhemoglobin Carboxyhemoglobin Sodium 131 L Potassium Chloride 88.7 L Carbon Dioxide 18 L BUN 36 H Creatinine 1.6 H Glucose 147 H POC Glucose Hemoglobin A1c Lactic Acid Calcium 7.5 L Phosphorus Magnesium Ferritin 1207.0 H Total Bilirubin AST ALT Lactate Dehydrogenase C-Reactive Protein Albumin Triglycerides Arterial Blood Glucose Arterial Blood Ionized Calcium Urine Creatinine Coronavirus (PCR) Positive A Crossmatch 01/23/21 01/23/21 01/24/21 20:49 Unknown 00:10 WBC RBC Hgb Hct MCV MCH MCHC RDW Plt Count Lymph % (Auto) Lymph # (Auto) Seg Neutrophils % Seg Neuts % (Manual) Lymphocytes % (Manual) Nucleated RBC % Seg Neutrophils # Seg Neutrophils # Man Lymphocytes # (Manual) Eosinophils # (Manual) INR D-Dimer ABG pH POC ABG pCO2 POC ABG pO2 ABG pO2 165.4 H ABG HCO3 ABG O2 Saturation ABG Base Excess -2.5 L ABG Hemoglobin ABG Oxyhemoglobin ABG Sodium ABG Potassium ABG Chloride ABG Glucose Oxyhemoglobin Carboxyhemoglobin Sodium 130 L Potassium Chloride 91.0 L Carbon Dioxide 20 L BUN 52 H Creatinine 3.8 H D Glucose 150 H POC Glucose 125 H Hemoglobin A1c Lactic Acid Calcium 8.0 L Phosphorus Magnesium Ferritin Total Bilirubin AST 42 H ALT Lactate Dehydrogenase C-Reactive Protein Albumin 2.4 L Triglycerides Arterial Blood Glucose Arterial Blood Ionized Calcium Urine Creatinine Coronavirus (PCR) Crossmatch 01/24/21 01/24/21 01/24/21 05:05 05:05 05:05 WBC 14.0 H RBC Hgb Hct MCV 95 H MCH 33 H MCHC RDW Plt Count Lymph % (Auto) Lymph # (Auto) Seg Neutrophils % Seg Neuts % (Manual) 91.0 H Lymphocytes % (Manual) 4.0 L Nucleated RBC % Seg Neutrophils # Seg Neutrophils # Man 12.7 H Lymphocytes # (Manual) 0.6 L Eosinophils # (Manual) INR D-Dimer 6159.48 H ABG pH POC ABG pCO2 POC ABG pO2 ABG pO2 ABG HCO3 ABG O2 Saturation ABG Base Excess ABG Hemoglobin ABG Oxyhemoglobin ABG Sodium ABG Potassium ABG Chloride ABG Glucose Oxyhemoglobin Carboxyhemoglobin Sodium Potassium Chloride Carbon Dioxide BUN Creatinine Glucose POC Glucose Hemoglobin A1c Lactic Acid Calcium Phosphorus Magnesium Ferritin 1178.0 H Total Bilirubin AST ALT Lactate Dehydrogenase C-Reactive Protein Albumin Triglycerides Arterial Blood Glucose Arterial Blood Ionized Calcium Urine Creatinine Coronavirus (PCR) Crossmatch 01/24/21 01/24/21 01/24/21 05:05 05:05 05:05 WBC RBC Hgb Hct MCV MCH MCHC RDW Plt Count Lymph % (Auto) Lymph # (Auto) Seg Neutrophils % Seg Neuts % (Manual) Lymphocytes % (Manual) Nucleated RBC % Seg Neutrophils # Seg Neutrophils # Man Lymphocytes # (Manual) Eosinophils # (Manual) INR D-Dimer ABG pH POC ABG pCO2 POC ABG pO2 ABG pO2 ABG HCO3 ABG O2 Saturation ABG Base Excess ABG Hemoglobin ABG Oxyhemoglobin ABG Sodium ABG Potassium ABG Chloride ABG Glucose Oxyhemoglobin Carboxyhemoglobin Sodium 132 L Potassium Chloride 93.1 L Carbon Dioxide 21 L BUN 57 H Creatinine 3.7 H Glucose 133 H POC Glucose Hemoglobin A1c Lactic Acid 2.20 H* Calcium 7.7 L Phosphorus Magnesium Ferritin Total Bilirubin AST ALT Lactate Dehydrogenase 658 H C-Reactive Protein 33.20 H Albumin 2.4 L Triglycerides Arterial Blood Glucose Arterial Blood Ionized Calcium Urine Creatinine Coronavirus (PCR) Crossmatch 01/24/21 01/24/21 01/24/21 05:34 06:00 17:35 WBC RBC Hgb Hct MCV MCH MCHC RDW Plt Count Lymph % (Auto) Lymph # (Auto) Seg Neutrophils % Seg Neuts % (Manual) Lymphocytes % (Manual) Nucleated RBC % Seg Neutrophils # Seg Neutrophils # Man Lymphocytes # (Manual) Eosinophils # (Manual) INR D-Dimer ABG pH POC ABG pCO2 POC ABG pO2 ABG pO2 ABG HCO3 ABG O2 Saturation ABG Base Excess ABG Hemoglobin ABG Oxyhemoglobin ABG Sodium ABG Potassium ABG Chloride ABG Glucose Oxyhemoglobin Carboxyhemoglobin Sodium Potassium Chloride Carbon Dioxide BUN Creatinine Glucose POC Glucose 136 H 137 H Hemoglobin A1c Lactic Acid Calcium Phosphorus Magnesium 2.80 H Ferritin Total Bilirubin AST ALT Lactate Dehydrogenase C-Reactive Protein Albumin Triglycerides Arterial Blood Glucose Arterial Blood Ionized Calcium Urine Creatinine Coronavirus (PCR) Crossmatch 01/25/21 01/25/21 01/25/21 04:15 05:40 05:40 WBC RBC Hgb Hct MCV 95 H MCH 33 H MCHC 35 H RDW Plt Count Lymph % (Auto) Lymph # (Auto) Seg Neutrophils % Seg Neuts % (Manual) 95.0 H Lymphocytes % (Manual) 3.0 L Nucleated RBC % Seg Neutrophils # Seg Neutrophils # Man 7.8 H Lymphocytes # (Manual) 0.2 L Eosinophils # (Manual) INR D-Dimer ABG pH POC ABG pCO2 POC ABG pO2 63.2 L ABG pO2 ABG HCO3 ABG O2 Saturation ABG Base Excess ABG Hemoglobin ABG Oxyhemoglobin 89.6 L ABG Sodium ABG Potassium ABG Chloride ABG Glucose 165 H Oxyhemoglobin Carboxyhemoglobin 0.3 L Sodium Potassium Chloride Carbon Dioxide BUN 67 H Creatinine 3.4 H Glucose 153 H POC Glucose Hemoglobin A1c Lactic Acid Calcium 7.5 L Phosphorus Magnesium Ferritin Total Bilirubin 1.40 H AST 62 H ALT Lactate Dehydrogenase C-Reactive Protein Albumin 2.6 L Triglycerides Arterial Blood Glucose 165 H Arterial Blood Ionized Calcium 4.3 L Urine Creatinine Coronavirus (PCR) Crossmatch 01/25/21 01/25/21 01/25/21 05:59 12:00 17:17 WBC RBC Hgb Hct MCV MCH MCHC RDW Plt Count Lymph % (Auto) Lymph # (Auto) Seg Neutrophils % Seg Neuts % (Manual) Lymphocytes % (Manual) Nucleated RBC % Seg Neutrophils # Seg Neutrophils # Man Lymphocytes # (Manual) Eosinophils # (Manual) INR D-Dimer ABG pH POC ABG pCO2 POC ABG pO2 ABG pO2 ABG HCO3 ABG O2 Saturation ABG Base Excess ABG Hemoglobin ABG Oxyhemoglobin ABG Sodium ABG Potassium ABG Chloride ABG Glucose Oxyhemoglobin Carboxyhemoglobin Sodium Potassium Chloride Carbon Dioxide BUN Creatinine Glucose POC Glucose 140 H 143 H 149 H Hemoglobin A1c Lactic Acid Calcium Phosphorus Magnesium Ferritin Total Bilirubin AST ALT Lactate Dehydrogenase C-Reactive Protein Albumin Triglycerides Arterial Blood Glucose Arterial Blood Ionized Calcium Urine Creatinine Coronavirus (PCR) Crossmatch 01/25/21 01/26/21 01/26/21 23:41 03:43 05:46 WBC RBC Hgb Hct MCV MCH MCHC RDW Plt Count Lymph % (Auto) Lymph # (Auto) Seg Neutrophils % Seg Neuts % (Manual) Lymphocytes % (Manual) Nucleated RBC % Seg Neutrophils # Seg Neutrophils # Man Lymphocytes # (Manual) Eosinophils # (Manual) INR D-Dimer ABG pH POC ABG pCO2 POC ABG pO2 70.0 L ABG pO2 ABG HCO3 ABG O2 Saturation ABG Base Excess ABG Hemoglobin ABG Oxyhemoglobin 91.9 L ABG Sodium ABG Potassium ABG Chloride 109.0 H ABG Glucose 165 H Oxyhemoglobin Carboxyhemoglobin Sodium Potassium Chloride Carbon Dioxide BUN Creatinine Glucose POC Glucose 132 H 161 H Hemoglobin A1c Lactic Acid Calcium Phosphorus Magnesium Ferritin Total Bilirubin AST ALT Lactate Dehydrogenase C-Reactive Protein Albumin Triglycerides Arterial Blood Glucose 165 H Arterial Blood Ionized Calcium 4.5 L Urine Creatinine Coronavirus (PCR) Crossmatch 01/26/21 01/26/21 01/26/21 05:47 05:47 05:47 WBC RBC Hgb Hct 35.3 L MCV 96 H MCH 33 H MCHC RDW Plt Count Lymph % (Auto) Lymph # (Auto) Seg Neutrophils % Seg Neuts % (Manual) 96.0 H Lymphocytes % (Manual) 2.0 L Nucleated RBC % Seg Neutrophils # Seg Neutrophils # Man Lymphocytes # (Manual) 0.1 L Eosinophils # (Manual) INR D-Dimer > 73953 H ABG pH POC ABG pCO2 POC ABG pO2 ABG pO2 ABG HCO3 ABG O2 Saturation ABG Base Excess ABG Hemoglobin ABG Oxyhemoglobin ABG Sodium ABG Potassium ABG Chloride ABG Glucose Oxyhemoglobin Carboxyhemoglobin Sodium Potassium Chloride Carbon Dioxide BUN 57 H Creatinine 2.2 H Glucose 185 H POC Glucose Hemoglobin A1c Lactic Acid Calcium 8.1 L Phosphorus Magnesium Ferritin Total Bilirubin AST ALT Lactate Dehydrogenase C-Reactive Protein Albumin Triglycerides Arterial Blood Glucose Arterial Blood Ionized Calcium Urine Creatinine Coronavirus (PCR) Crossmatch 01/26/21 01/26/21 01/26/21 05:47 05:47 05:47 WBC RBC Hgb Hct MCV MCH MCHC RDW Plt Count Lymph % (Auto) Lymph # (Auto) Seg Neutrophils % Seg Neuts % (Manual) Lymphocytes % (Manual) Nucleated RBC % Seg Neutrophils # Seg Neutrophils # Man Lymphocytes # (Manual) Eosinophils # (Manual) INR D-Dimer ABG pH POC ABG pCO2 POC ABG pO2 ABG pO2 ABG HCO3 ABG O2 Saturation ABG Base Excess ABG Hemoglobin ABG Oxyhemoglobin ABG Sodium ABG Potassium ABG Chloride ABG Glucose Oxyhemoglobin Carboxyhemoglobin Sodium Potassium Chloride 107.1 H Carbon Dioxide BUN 56 H Creatinine 2.2 H Glucose 188 H POC Glucose Hemoglobin A1c Lactic Acid Calcium 8.0 L Phosphorus Magnesium Ferritin 1178.0 H Total Bilirubin 1.50 H AST ALT Lactate Dehydrogenase 588 H C-Reactive Protein 40.10 H Albumin 2.2 L Triglycerides Arterial Blood Glucose Arterial Blood Ionized Calcium Urine Creatinine Coronavirus (PCR) Crossmatch 01/26/21 01/26/21 01/26/21 11:34 18:17 23:20 WBC RBC Hgb Hct MCV MCH MCHC RDW Plt Count Lymph % (Auto) Lymph # (Auto) Seg Neutrophils % Seg Neuts % (Manual) Lymphocytes % (Manual) Nucleated RBC % Seg Neutrophils # Seg Neutrophils # Man Lymphocytes # (Manual) Eosinophils # (Manual) INR D-Dimer ABG pH POC ABG pCO2 POC ABG pO2 ABG pO2 ABG HCO3 ABG O2 Saturation ABG Base Excess ABG Hemoglobin ABG Oxyhemoglobin ABG Sodium ABG Potassium ABG Chloride ABG Glucose Oxyhemoglobin Carboxyhemoglobin Sodium Potassium Chloride Carbon Dioxide BUN Creatinine Glucose POC Glucose 129 H 205 H 155 H Hemoglobin A1c Lactic Acid Calcium Phosphorus Magnesium Ferritin Total Bilirubin AST ALT Lactate Dehydrogenase C-Reactive Protein Albumin Triglycerides Arterial Blood Glucose Arterial Blood Ionized Calcium Urine Creatinine Coronavirus (PCR) Crossmatch 01/27/21 01/27/21 01/27/21 02:45 05:29 05:29 WBC RBC 3.58 L Hgb 11.7 L Hct 34.9 L MCV 97 H MCH 33 H MCHC RDW Plt Count Lymph % (Auto) Lymph # (Auto) Seg Neutrophils % Seg Neuts % (Manual) 88.0 H Lymphocytes % (Manual) 7.0 L Nucleated RBC % Seg Neutrophils # Seg Neutrophils # Man Lymphocytes # (Manual) 0.5 L Eosinophils # (Manual) INR D-Dimer ABG pH 7.319 L POC ABG pCO2 50.7 H POC ABG pO2 63.0 L ABG pO2 ABG HCO3 ABG O2 Saturation ABG Base Excess ABG Hemoglobin ABG Oxyhemoglobin ABG Sodium 145.2 H ABG Potassium 5.1 H ABG Chloride 114.0 H ABG Glucose 178 H Oxyhemoglobin Carboxyhemoglobin Sodium Potassium Chloride Carbon Dioxide BUN Creatinine Glucose POC Glucose Hemoglobin A1c Lactic Acid Calcium Phosphorus Magnesium 4.00 H Ferritin Total Bilirubin AST ALT Lactate Dehydrogenase C-Reactive Protein Albumin Triglycerides Arterial Blood Glucose 178 H Arterial Blood Ionized Calcium Urine Creatinine Coronavirus (PCR) Crossmatch 01/27/21 01/27/21 01/27/21 05:29 05:29 05:31 WBC RBC Hgb Hct MCV MCH MCHC RDW Plt Count Lymph % (Auto) Lymph # (Auto) Seg Neutrophils % Seg Neuts % (Manual) Lymphocytes % (Manual) Nucleated RBC % Seg Neutrophils # Seg Neutrophils # Man Lymphocytes # (Manual) Eosinophils # (Manual) INR D-Dimer ABG pH POC ABG pCO2 POC ABG pO2 ABG pO2 ABG HCO3 ABG O2 Saturation ABG Base Excess ABG Hemoglobin ABG Oxyhemoglobin ABG Sodium ABG Potassium ABG Chloride ABG Glucose Oxyhemoglobin Carboxyhemoglobin Sodium Potassium 5.2 H Chloride 109.6 H Carbon Dioxide BUN 67 H Creatinine 2.8 H Glucose 195 H POC Glucose 176 H Hemoglobin A1c Lactic Acid Calcium 7.9 L Phosphorus Magnesium Ferritin Total Bilirubin AST ALT Lactate Dehydrogenase C-Reactive Protein Albumin Triglycerides 160 H Arterial Blood Glucose Arterial Blood Ionized Calcium Urine Creatinine Coronavirus (PCR) Crossmatch 01/27/21 01/27/21 01/27/21 11:27 18:08 23:30 WBC RBC Hgb Hct MCV MCH MCHC RDW Plt Count Lymph % (Auto) Lymph # (Auto) Seg Neutrophils % Seg Neuts % (Manual) Lymphocytes % (Manual) Nucleated RBC % Seg Neutrophils # Seg Neutrophils # Man Lymphocytes # (Manual) Eosinophils # (Manual) INR D-Dimer ABG pH POC ABG pCO2 POC ABG pO2 ABG pO2 ABG HCO3 ABG O2 Saturation ABG Base Excess ABG Hemoglobin ABG Oxyhemoglobin ABG Sodium ABG Potassium ABG Chloride ABG Glucose Oxyhemoglobin Carboxyhemoglobin Sodium Potassium Chloride Carbon Dioxide BUN Creatinine Glucose POC Glucose 189 H 212 H 175 H Hemoglobin A1c Lactic Acid Calcium Phosphorus Magnesium Ferritin Total Bilirubin AST ALT Lactate Dehydrogenase C-Reactive Protein Albumin Triglycerides Arterial Blood Glucose Arterial Blood Ionized Calcium Urine Creatinine Coronavirus (PCR) Crossmatch 01/28/21 01/28/21 01/28/21 03:58 04:00 04:00 WBC RBC Hgb Hct MCV MCH MCHC RDW Plt Count Lymph % (Auto) Lymph # (Auto) Seg Neutrophils % Seg Neuts % (Manual) Lymphocytes % (Manual) Nucleated RBC % Seg Neutrophils # Seg Neutrophils # Man Lymphocytes # (Manual) Eosinophils # (Manual) INR D-Dimer > 42795 H ABG pH POC ABG pCO2 POC ABG pO2 52.9 L ABG pO2 ABG HCO3 ABG O2 Saturation ABG Base Excess ABG Hemoglobin ABG Oxyhemoglobin 84.1 L ABG Sodium 148.9 H ABG Potassium ABG Chloride 117.0 H ABG Glucose 194 H Oxyhemoglobin Carboxyhemoglobin Sodium Potassium Chloride Carbon Dioxide BUN Creatinine Glucose POC Glucose Hemoglobin A1c Lactic Acid Calcium Phosphorus Magnesium Ferritin Total Bilirubin AST ALT Lactate Dehydrogenase 679 H C-Reactive Protein 17.10 H Albumin Triglycerides Arterial Blood Glucose 194 H Arterial Blood Ionized Calcium Urine Creatinine Coronavirus (PCR) Crossmatch 01/28/21 01/28/21 01/28/21 04:00 05:00 06:00 WBC RBC 3.59 L Hgb 11.6 L Hct 34.8 L MCV 97 H MCH MCHC RDW Plt Count Lymph % (Auto) Lymph # (Auto) Seg Neutrophils % Seg Neuts % (Manual) 96.0 H Lymphocytes % (Manual) 3.0 L Nucleated RBC % Seg Neutrophils # Seg Neutrophils # Man Lymphocytes # (Manual) 0.2 L Eosinophils # (Manual) INR D-Dimer ABG pH POC ABG pCO2 POC ABG pO2 ABG pO2 ABG HCO3 ABG O2 Saturation ABG Base Excess ABG Hemoglobin ABG Oxyhemoglobin ABG Sodium ABG Potassium ABG Chloride ABG Glucose Oxyhemoglobin Carboxyhemoglobin Sodium Potassium Chloride Carbon Dioxide BUN Creatinine Glucose POC Glucose 159 H Hemoglobin A1c Lactic Acid Calcium Phosphorus Magnesium Ferritin 798.0 H Total Bilirubin AST ALT Lactate Dehydrogenase C-Reactive Protein Albumin Triglycerides Arterial Blood Glucose Arterial Blood Ionized Calcium Urine Creatinine Coronavirus (PCR) Crossmatch 01/28/21 01/28/21 01/28/21 06:00 06:00 08:12 WBC RBC Hgb Hct MCV MCH MCHC RDW Plt Count Lymph % (Auto) Lymph # (Auto) Seg Neutrophils % Seg Neuts % (Manual) Lymphocytes % (Manual) Nucleated RBC % Seg Neutrophils # Seg Neutrophils # Man Lymphocytes # (Manual) Eosinophils # (Manual) INR D-Dimer ABG pH POC ABG pCO2 POC ABG pO2 ABG pO2 ABG HCO3 ABG O2 Saturation ABG Base Excess ABG Hemoglobin ABG Oxyhemoglobin ABG Sodium ABG Potassium ABG Chloride ABG Glucose Oxyhemoglobin Carboxyhemoglobin Sodium Potassium Chloride 111.9 H Carbon Dioxide BUN 59 H Creatinine 2.2 H Glucose 189 H POC Glucose 181 H Hemoglobin A1c Lactic Acid Calcium 8.1 L Phosphorus Magnesium 3.20 H Ferritin Total Bilirubin AST ALT Lactate Dehydrogenase C-Reactive Protein Albumin Triglycerides Arterial Blood Glucose Arterial Blood Ionized Calcium Urine Creatinine Coronavirus (PCR) Crossmatch 01/28/21 01/28/21 01/28/21 12:03 16:43 23:51 WBC RBC Hgb Hct MCV MCH MCHC RDW Plt Count Lymph % (Auto) Lymph # (Auto) Seg Neutrophils % Seg Neuts % (Manual) Lymphocytes % (Manual) Nucleated RBC % Seg Neutrophils # Seg Neutrophils # Man Lymphocytes # (Manual) Eosinophils # (Manual) INR D-Dimer ABG pH POC ABG pCO2 POC ABG pO2 ABG pO2 ABG HCO3 ABG O2 Saturation ABG Base Excess ABG Hemoglobin ABG Oxyhemoglobin ABG Sodium ABG Potassium ABG Chloride ABG Glucose Oxyhemoglobin Carboxyhemoglobin Sodium Potassium Chloride Carbon Dioxide BUN Creatinine Glucose POC Glucose 164 H 198 H 196 H Hemoglobin A1c Lactic Acid Calcium Phosphorus Magnesium Ferritin Total Bilirubin AST ALT Lactate Dehydrogenase C-Reactive Protein Albumin Triglycerides Arterial Blood Glucose Arterial Blood Ionized Calcium Urine Creatinine Coronavirus (PCR) Crossmatch 01/29/21 01/29/21 01/29/21 05:00 05:23 06:00 WBC RBC Hgb Hct MCV MCH MCHC RDW Plt Count Lymph % (Auto) Lymph # (Auto) Seg Neutrophils % Seg Neuts % (Manual) Lymphocytes % (Manual) Nucleated RBC % Seg Neutrophils # Seg Neutrophils # Man Lymphocytes # (Manual) Eosinophils # (Manual) INR D-Dimer ABG pH 7.119 L POC ABG pCO2 87.1 H POC ABG pO2 ABG pO2 ABG HCO3 ABG O2 Saturation ABG Base Excess ABG Hemoglobin ABG Oxyhemoglobin ABG Sodium 152.5 H ABG Potassium 5.7 H ABG Chloride 120.0 H ABG Glucose 217 H Oxyhemoglobin Carboxyhemoglobin Sodium 151 H Potassium 5.9 H D Chloride 117.8 H Carbon Dioxide BUN 54 H Creatinine 2.2 H Glucose 208 H POC Glucose 180 H Hemoglobin A1c Lactic Acid Calcium 7.9 L Phosphorus Magnesium Ferritin Total Bilirubin AST ALT Lactate Dehydrogenase C-Reactive Protein Albumin Triglycerides Arterial Blood Glucose 217 H Arterial Blood Ionized Calcium Urine Creatinine Coronavirus (PCR) Crossmatch 01/29/21 01/29/21 01/29/21 12:29 17:28 18:05 WBC RBC Hgb Hct MCV MCH MCHC RDW Plt Count Lymph % (Auto) Lymph # (Auto) Seg Neutrophils % Seg Neuts % (Manual) Lymphocytes % (Manual) Nucleated RBC % Seg Neutrophils # Seg Neutrophils # Man Lymphocytes # (Manual) Eosinophils # (Manual) INR D-Dimer ABG pH POC ABG pCO2 POC ABG pO2 ABG pO2 ABG HCO3 ABG O2 Saturation ABG Base Excess ABG Hemoglobin ABG Oxyhemoglobin ABG Sodium ABG Potassium ABG Chloride ABG Glucose Oxyhemoglobin Carboxyhemoglobin Sodium 151 H Potassium 5.5 H Chloride 118.2 H Carbon Dioxide BUN 52 H Creatinine 2.2 H Glucose 224 H POC Glucose 181 H 203 H Hemoglobin A1c Lactic Acid Calcium 8.0 L Phosphorus Magnesium Ferritin Total Bilirubin AST ALT Lactate Dehydrogenase C-Reactive Protein Albumin Triglycerides Arterial Blood Glucose Arterial Blood Ionized Calcium Urine Creatinine Coronavirus (PCR) Crossmatch 01/29/21 01/29/21 01/29/21 18:13 23:34 Unknown WBC RBC Hgb Hct MCV 101 H MCH MCHC RDW 15.7 H Plt Count Lymph % (Auto) Lymph # (Auto) Seg Neutrophils % Seg Neuts % (Manual) 95.0 H Lymphocytes % (Manual) 3.0 L Nucleated RBC % Seg Neutrophils # Seg Neutrophils # Man 8.0 H Lymphocytes # (Manual) 0.3 L Eosinophils # (Manual) INR D-Dimer ABG pH 7.223 L POC ABG pCO2 64.8 H POC ABG pO2 63.6 L ABG pO2 ABG HCO3 ABG O2 Saturation ABG Base Excess ABG Hemoglobin ABG Oxyhemoglobin 89.4 L ABG Sodium 152.9 H ABG Potassium 5.3 H ABG Chloride 121.0 H ABG Glucose 227 H Oxyhemoglobin Carboxyhemoglobin Sodium Potassium Chloride Carbon Dioxide BUN Creatinine Glucose POC Glucose 198 H Hemoglobin A1c Lactic Acid Calcium Phosphorus Magnesium Ferritin Total Bilirubin AST ALT Lactate Dehydrogenase C-Reactive Protein Albumin Triglycerides Arterial Blood Glucose 227 H Arterial Blood Ionized Calcium Urine Creatinine Coronavirus (PCR) Crossmatch 01/30/21 01/30/21 01/30/21 04:00 04:00 04:00 WBC RBC Hgb Hct MCV MCH MCHC RDW Plt Count Lymph % (Auto) Lymph # (Auto) Seg Neutrophils % Seg Neuts % (Manual) Lymphocytes % (Manual) Nucleated RBC % Seg Neutrophils # Seg Neutrophils # Man Lymphocytes # (Manual) Eosinophils # (Manual) INR D-Dimer > 63603 H ABG pH POC ABG pCO2 POC ABG pO2 ABG pO2 ABG HCO3 ABG O2 Saturation ABG Base Excess ABG Hemoglobin ABG Oxyhemoglobin ABG Sodium ABG Potassium ABG Chloride ABG Glucose Oxyhemoglobin Carboxyhemoglobin Sodium Potassium Chloride Carbon Dioxide BUN Creatinine Glucose 234 H POC Glucose Hemoglobin A1c Lactic Acid Calcium Phosphorus Magnesium Ferritin 763.9 H Total Bilirubin AST ALT Lactate Dehydrogenase 424 H C-Reactive Protein 23.90 H Albumin Triglycerides Arterial Blood Glucose Arterial Blood Ionized Calcium Urine Creatinine Coronavirus (PCR) Crossmatch 01/30/21 01/30/21 01/30/21 04:24 05:00 05:16 WBC RBC 3.57 L Hgb 11.3 L Hct 35.4 L MCV 99 H MCH MCHC RDW 15.6 H Plt Count Lymph % (Auto) Lymph # (Auto) Seg Neutrophils % Seg Neuts % (Manual) 97.0 H Lymphocytes % (Manual) 1.0 L Nucleated RBC % Seg Neutrophils # Seg Neutrophils # Man 8.6 H Lymphocytes # (Manual) 0.1 L Eosinophils # (Manual) INR D-Dimer ABG pH 7.235 L POC ABG pCO2 69.7 H POC ABG pO2 61.0 L ABG pO2 ABG HCO3 ABG O2 Saturation ABG Base Excess ABG Hemoglobin ABG Oxyhemoglobin 89 L ABG Sodium 154.2 H ABG Potassium 5.4 H ABG Chloride 121.0 H ABG Glucose 247 H Oxyhemoglobin Carboxyhemoglobin Sodium Potassium Chloride Carbon Dioxide BUN Creatinine Glucose POC Glucose 238 H Hemoglobin A1c Lactic Acid Calcium Phosphorus Magnesium Ferritin Total Bilirubin AST ALT Lactate Dehydrogenase C-Reactive Protein Albumin Triglycerides Arterial Blood Glucose 247 H Arterial Blood Ionized Calcium Urine Creatinine Coronavirus (PCR) Crossmatch 01/30/21 01/30/21 01/30/21 06:00 11:28 12:00 WBC RBC Hgb Hct MCV MCH MCHC RDW Plt Count Lymph % (Auto) Lymph # (Auto) Seg Neutrophils % Seg Neuts % (Manual) Lymphocytes % (Manual) Nucleated RBC % Seg Neutrophils # Seg Neutrophils # Man Lymphocytes # (Manual) Eosinophils # (Manual) INR D-Dimer ABG pH POC ABG pCO2 POC ABG pO2 ABG pO2 ABG HCO3 ABG O2 Saturation ABG Base Excess ABG Hemoglobin ABG Oxyhemoglobin ABG Sodium ABG Potassium ABG Chloride ABG Glucose Oxyhemoglobin Carboxyhemoglobin Sodium 152 H Potassium 5.3 H Chloride 120.5 H Carbon Dioxide BUN 50 H Creatinine 2.3 H Glucose 239 H POC Glucose 153 H Hemoglobin A1c Lactic Acid Calcium 8.2 L Phosphorus Magnesium 2.60 H Ferritin Total Bilirubin AST ALT Lactate Dehydrogenase C-Reactive Protein Albumin Triglycerides 293 H Arterial Blood Glucose Arterial Blood Ionized Calcium Urine Creatinine 53.0 H Coronavirus (PCR) Crossmatch 01/30/21 01/30/21 01/31/21 18:49 23:06 04:00 WBC RBC Hgb Hct MCV MCH MCHC RDW Plt Count Lymph % (Auto) Lymph # (Auto) Seg Neutrophils % Seg Neuts % (Manual) Lymphocytes % (Manual) Nucleated RBC % Seg Neutrophils # Seg Neutrophils # Man Lymphocytes # (Manual) Eosinophils # (Manual) INR D-Dimer ABG pH POC ABG pCO2 POC ABG pO2 ABG pO2 ABG HCO3 ABG O2 Saturation ABG Base Excess ABG Hemoglobin ABG Oxyhemoglobin ABG Sodium ABG Potassium ABG Chloride ABG Glucose Oxyhemoglobin Carboxyhemoglobin Sodium 156 H Potassium 5.9 H Chloride 122.6 H Carbon Dioxide BUN 61 H Creatinine 3.2 H Glucose 205 H POC Glucose 220 H 192 H Hemoglobin A1c Lactic Acid Calcium 8.0 L Phosphorus Magnesium Ferritin Total Bilirubin AST ALT Lactate Dehydrogenase C-Reactive Protein Albumin Triglycerides Arterial Blood Glucose Arterial Blood Ionized Calcium Urine Creatinine Coronavirus (PCR) Crossmatch 01/31/21 01/31/21 01/31/21 04:40 05:17 11:33 WBC RBC Hgb Hct MCV MCH MCHC RDW Plt Count Lymph % (Auto) Lymph # (Auto) Seg Neutrophils % Seg Neuts % (Manual) Lymphocytes % (Manual) Nucleated RBC % Seg Neutrophils # Seg Neutrophils # Man Lymphocytes # (Manual) Eosinophils # (Manual) INR D-Dimer ABG pH 7.161 L* POC ABG pCO2 POC ABG pO2 ABG pO2 142.2 H ABG HCO3 28.3 H ABG O2 Saturation ABG Base Excess -3.2 L ABG Hemoglobin ABG Oxyhemoglobin ABG Sodium ABG Potassium ABG Chloride ABG Glucose Oxyhemoglobin Carboxyhemoglobin Sodium Potassium Chloride Carbon Dioxide BUN Creatinine Glucose POC Glucose 200 H 167 H Hemoglobin A1c Lactic Acid Calcium Phosphorus Magnesium Ferritin Total Bilirubin AST ALT Lactate Dehydrogenase C-Reactive Protein Albumin Triglycerides Arterial Blood Glucose Arterial Blood Ionized Calcium Urine Creatinine Coronavirus (PCR) Crossmatch 01/31/21 01/31/21 01/31/21 14:00 17:10 23:24 WBC RBC Hgb Hct MCV MCH MCHC RDW Plt Count Lymph % (Auto) Lymph # (Auto) Seg Neutrophils % Seg Neuts % (Manual) Lymphocytes % (Manual) Nucleated RBC % Seg Neutrophils # Seg Neutrophils # Man Lymphocytes # (Manual) Eosinophils # (Manual) INR D-Dimer ABG pH 7.205 L POC ABG pCO2 POC ABG pO2 ABG pO2 90.9 H ABG HCO3 26.5 H ABG O2 Saturation ABG Base Excess -2.7 L ABG Hemoglobin 12.3 L ABG Oxyhemoglobin ABG Sodium ABG Potassium ABG Chloride ABG Glucose Oxyhemoglobin 93.9 L Carboxyhemoglobin Sodium Potassium Chloride Carbon Dioxide BUN Creatinine Glucose POC Glucose 190 H 203 H Hemoglobin A1c Lactic Acid Calcium Phosphorus Magnesium Ferritin Total Bilirubin AST ALT Lactate Dehydrogenase C-Reactive Protein Albumin Triglycerides Arterial Blood Glucose Arterial Blood Ionized Calcium Urine Creatinine Coronavirus (PCR) Crossmatch 02/01/21 02/01/21 02/01/21 05:15 06:22 10:20 WBC RBC Hgb Hct MCV MCH MCHC RDW Plt Count Lymph % (Auto) Lymph # (Auto) Seg Neutrophils % Seg Neuts % (Manual) Lymphocytes % (Manual) Nucleated RBC % Seg Neutrophils # Seg Neutrophils # Man Lymphocytes # (Manual) Eosinophils # (Manual) INR D-Dimer ABG pH 6.920 L* 7.116 L* POC ABG pCO2 POC ABG pO2 ABG pO2 102.9 H 113.1 H ABG HCO3 28.2 H ABG O2 Saturation 92.9 L ABG Base Excess -6.9 L -5.8 L ABG Hemoglobin 11.6 L 9.5 L ABG Oxyhemoglobin ABG Sodium ABG Potassium ABG Chloride ABG Glucose Oxyhemoglobin 90.5 L 94.6 L Carboxyhemoglobin Sodium Potassium Chloride Carbon Dioxide BUN Creatinine Glucose POC Glucose 221 H Hemoglobin A1c Lactic Acid Calcium Phosphorus Magnesium Ferritin Total Bilirubin AST ALT Lactate Dehydrogenase C-Reactive Protein Albumin Triglycerides Arterial Blood Glucose Arterial Blood Ionized Calcium Urine Creatinine Coronavirus (PCR) Crossmatch 02/01/21 02/01/21 02/01/21 11:12 12:35 16:00 WBC RBC Hgb Hct MCV MCH MCHC RDW Plt Count Lymph % (Auto) Lymph # (Auto) Seg Neutrophils % Seg Neuts % (Manual) Lymphocytes % (Manual) Nucleated RBC % Seg Neutrophils # Seg Neutrophils # Man Lymphocytes # (Manual) Eosinophils # (Manual) INR D-Dimer ABG pH 7.155 L* POC ABG pCO2 POC ABG pO2 ABG pO2 94.6 H ABG HCO3 ABG O2 Saturation ABG Base Excess -6.5 L ABG Hemoglobin 13.1 L ABG Oxyhemoglobin ABG Sodium ABG Potassium ABG Chloride ABG Glucose Oxyhemoglobin 93.7 L Carboxyhemoglobin Sodium 155 H Potassium 5.1 H Chloride 120.5 H Carbon Dioxide BUN 90 H Creatinine 6.1 H D Glucose 238 H POC Glucose 207 H Hemoglobin A1c Lactic Acid Calcium 7.4 L Phosphorus Magnesium Ferritin Total Bilirubin AST ALT Lactate Dehydrogenase C-Reactive Protein Albumin Triglycerides Arterial Blood Glucose Arterial Blood Ionized Calcium Urine Creatinine Coronavirus (PCR) Crossmatch 02/01/21 02/01/21 02/02/21 17:10 23:47 04:04 WBC RBC 3.02 L Hgb 9.8 L Hct 30.7 L MCV 102 H MCH MCHC RDW 15.6 H Plt Count Lymph % (Auto) 4.2 L Lymph # (Auto) 0.3 L Seg Neutrophils % Seg Neuts % (Manual) Lymphocytes % (Manual) Nucleated RBC % Seg Neutrophils # Seg Neutrophils # Man Lymphocytes # (Manual) Eosinophils # (Manual) INR D-Dimer ABG pH POC ABG pCO2 POC ABG pO2 ABG pO2 ABG HCO3 ABG O2 Saturation ABG Base Excess ABG Hemoglobin ABG Oxyhemoglobin ABG Sodium ABG Potassium ABG Chloride ABG Glucose Oxyhemoglobin Carboxyhemoglobin Sodium Potassium Chloride Carbon Dioxide BUN Creatinine Glucose POC Glucose 238 H 235 H Hemoglobin A1c Lactic Acid Calcium Phosphorus Magnesium Ferritin Total Bilirubin AST ALT Lactate Dehydrogenase C-Reactive Protein Albumin Triglycerides Arterial Blood Glucose Arterial Blood Ionized Calcium Urine Creatinine Coronavirus (PCR) Crossmatch 02/02/21 02/02/21 02/02/21 05:18 05:35 11:28 WBC RBC Hgb Hct MCV MCH MCHC RDW Plt Count Lymph % (Auto) Lymph # (Auto) Seg Neutrophils % Seg Neuts % (Manual) Lymphocytes % (Manual) Nucleated RBC % Seg Neutrophils # Seg Neutrophils # Man Lymphocytes # (Manual) Eosinophils # (Manual) INR D-Dimer ABG pH 7.195 L* POC ABG pCO2 POC ABG pO2 ABG pO2 72.5 L ABG HCO3 ABG O2 Saturation 91.2 L ABG Base Excess -5.3 L ABG Hemoglobin 6.0 L ABG Oxyhemoglobin ABG Sodium ABG Potassium ABG Chloride ABG Glucose Oxyhemoglobin 89.1 L Carboxyhemoglobin Sodium Potassium Chloride 110.4 H Carbon Dioxide BUN 92 H Creatinine Glucose POC Glucose 239 H Hemoglobin A1c Lactic Acid Calcium Phosphorus Magnesium Ferritin Total Bilirubin AST ALT Lactate Dehydrogenase C-Reactive Protein Albumin Triglycerides Arterial Blood Glucose Arterial Blood Ionized Calcium Urine Creatinine Coronavirus (PCR) Crossmatch 02/02/21 02/02/21 02/02/21 11:53 16:00 18:04 WBC RBC Hgb Hct MCV MCH MCHC RDW Plt Count Lymph % (Auto) Lymph # (Auto) Seg Neutrophils % Seg Neuts % (Manual) Lymphocytes % (Manual) Nucleated RBC % Seg Neutrophils # Seg Neutrophils # Man Lymphocytes # (Manual) Eosinophils # (Manual) INR D-Dimer ABG pH POC ABG pCO2 POC ABG pO2 ABG pO2 ABG HCO3 ABG O2 Saturation ABG Base Excess ABG Hemoglobin ABG Oxyhemoglobin ABG Sodium ABG Potassium ABG Chloride ABG Glucose Oxyhemoglobin Carboxyhemoglobin Sodium Potassium Chloride Carbon Dioxide BUN Creatinine Glucose POC Glucose 248 H 199 H Hemoglobin A1c 6.3 H Lactic Acid Calcium Phosphorus Magnesium Ferritin Total Bilirubin AST ALT Lactate Dehydrogenase C-Reactive Protein Albumin Triglycerides Arterial Blood Glucose Arterial Blood Ionized Calcium Urine Creatinine Coronavirus (PCR) Crossmatch 02/02/21 02/03/21 02/03/21 23:31 03:12 04:10 WBC RBC 3.06 L Hgb 9.7 L Hct 30.4 L MCV 99 H MCH MCHC RDW 15.3 H Plt Count Lymph % (Auto) 6.1 L Lymph # (Auto) 0.5 L Seg Neutrophils % 86.1 H Seg Neuts % (Manual) Lymphocytes % (Manual) Nucleated RBC % Seg Neutrophils # Seg Neutrophils # Man Lymphocytes # (Manual) Eosinophils # (Manual) INR D-Dimer ABG pH 7.199 L POC ABG pCO2 48.3 H POC ABG pO2 68.3 L ABG pO2 ABG HCO3 ABG O2 Saturation ABG Base Excess ABG Hemoglobin 10.2 L ABG Oxyhemoglobin 89.2 L ABG Sodium 155.0 H ABG Potassium 4.6 H ABG Chloride 121.0 H ABG Glucose 166 H Oxyhemoglobin Carboxyhemoglobin 0.3 L Sodium Potassium Chloride Carbon Dioxide BUN Creatinine Glucose POC Glucose 200 H Hemoglobin A1c Lactic Acid Calcium Phosphorus Magnesium Ferritin Total Bilirubin AST ALT Lactate Dehydrogenase C-Reactive Protein Albumin Triglycerides Arterial Blood Glucose 166 H Arterial Blood Ionized Calcium 4.1 L Urine Creatinine Coronavirus (PCR) Crossmatch 02/03/21 02/03/21 02/03/21 04:10 05:34 11:51 WBC RBC Hgb Hct MCV MCH MCHC RDW Plt Count Lymph % (Auto) Lymph # (Auto) Seg Neutrophils % Seg Neuts % (Manual) Lymphocytes % (Manual) Nucleated RBC % Seg Neutrophils # Seg Neutrophils # Man Lymphocytes # (Manual) Eosinophils # (Manual) INR D-Dimer ABG pH POC ABG pCO2 POC ABG pO2 ABG pO2 ABG HCO3 ABG O2 Saturation ABG Base Excess ABG Hemoglobin ABG Oxyhemoglobin ABG Sodium ABG Potassium ABG Chloride ABG Glucose Oxyhemoglobin Carboxyhemoglobin Sodium 154 H D Potassium Chloride 116.7 H Carbon Dioxide 20 L BUN 130 H Creatinine 9.2 H D Glucose 160 H POC Glucose 130 H 154 H Hemoglobin A1c Lactic Acid Calcium 6.7 L Phosphorus 8.60 H Magnesium Ferritin Total Bilirubin AST ALT Lactate Dehydrogenase C-Reactive Protein Albumin Triglycerides Arterial Blood Glucose Arterial Blood Ionized Calcium Urine Creatinine Coronavirus (PCR) Crossmatch 02/03/21 02/03/21 02/04/21 16:49 23:22 03:48 WBC RBC Hgb Hct MCV MCH MCHC RDW Plt Count Lymph % (Auto) Lymph # (Auto) Seg Neutrophils % Seg Neuts % (Manual) Lymphocytes % (Manual) Nucleated RBC % Seg Neutrophils # Seg Neutrophils # Man Lymphocytes # (Manual) Eosinophils # (Manual) INR D-Dimer ABG pH 7.201 L POC ABG pCO2 54.5 H POC ABG pO2 74.0 L ABG pO2 ABG HCO3 ABG O2 Saturation ABG Base Excess ABG Hemoglobin 9.7 L ABG Oxyhemoglobin 91.1 L ABG Sodium 146.2 H ABG Potassium ABG Chloride 114.0 H ABG Glucose 155 H Oxyhemoglobin Carboxyhemoglobin Sodium Potassium Chloride Carbon Dioxide BUN Creatinine Glucose POC Glucose 164 H 152 H Hemoglobin A1c Lactic Acid Calcium Phosphorus Magnesium Ferritin Total Bilirubin AST ALT Lactate Dehydrogenase C-Reactive Protein Albumin Triglycerides Arterial Blood Glucose 155 H Arterial Blood Ionized Calcium 3.9 L Urine Creatinine Coronavirus (PCR) Crossmatch 02/04/21 02/04/21 02/04/21 04:45 04:45 04:45 WBC RBC 2.75 L Hgb 9.1 L Hct 26.9 L MCV 98 H MCH 33 H MCHC RDW Plt Count Lymph % (Auto) 6.8 L Lymph # (Auto) 0.5 L Seg Neutrophils % 87.2 H Seg Neuts % (Manual) Lymphocytes % (Manual) Nucleated RBC % Seg Neutrophils # Seg Neutrophils # Man Lymphocytes # (Manual) Eosinophils # (Manual) INR D-Dimer ABG pH POC ABG pCO2 POC ABG pO2 ABG pO2 ABG HCO3 ABG O2 Saturation ABG Base Excess ABG Hemoglobin ABG Oxyhemoglobin ABG Sodium ABG Potassium ABG Chloride ABG Glucose Oxyhemoglobin Carboxyhemoglobin Sodium 149 H Potassium Chloride 111.5 H Carbon Dioxide BUN 99 H Creatinine 8.5 H Glucose 139 H POC Glucose Hemoglobin A1c Lactic Acid Calcium 6.8 L Phosphorus 8.40 H Magnesium Ferritin Total Bilirubin AST ALT Lactate Dehydrogenase C-Reactive Protein Albumin Triglycerides Arterial Blood Glucose Arterial Blood Ionized Calcium Urine Creatinine Coronavirus (PCR) Crossmatch 02/04/21 02/04/21 02/04/21 06:05 11:44 18:00 WBC RBC Hgb Hct MCV MCH MCHC RDW Plt Count Lymph % (Auto) Lymph # (Auto) Seg Neutrophils % Seg Neuts % (Manual) Lymphocytes % (Manual) Nucleated RBC % Seg Neutrophils # Seg Neutrophils # Man Lymphocytes # (Manual) Eosinophils # (Manual) INR D-Dimer ABG pH POC ABG pCO2 POC ABG pO2 ABG pO2 ABG HCO3 ABG O2 Saturation ABG Base Excess ABG Hemoglobin ABG Oxyhemoglobin ABG Sodium ABG Potassium ABG Chloride ABG Glucose Oxyhemoglobin Carboxyhemoglobin Sodium Potassium Chloride Carbon Dioxide BUN Creatinine Glucose POC Glucose 138 H 129 H 163 H Hemoglobin A1c Lactic Acid Calcium Phosphorus Magnesium Ferritin Total Bilirubin AST ALT Lactate Dehydrogenase C-Reactive Protein Albumin Triglycerides Arterial Blood Glucose Arterial Blood Ionized Calcium Urine Creatinine Coronavirus (PCR) Crossmatch 02/04/21 02/05/21 02/05/21 23:48 01:50 01:50 WBC RBC 2.43 L Hgb 8.3 L Hct 23.6 L MCV 97 H MCH 34 H MCHC 35 H RDW Plt Count 137 L Lymph % (Auto) 8.4 L Lymph # (Auto) 0.6 L Seg Neutrophils % 86.1 H Seg Neuts % (Manual) Lymphocytes % (Manual) Nucleated RBC % Seg Neutrophils # Seg Neutrophils # Man Lymphocytes # (Manual) Eosinophils # (Manual) INR D-Dimer ABG pH POC ABG pCO2 POC ABG pO2 ABG pO2 ABG HCO3 ABG O2 Saturation ABG Base Excess ABG Hemoglobin ABG Oxyhemoglobin ABG Sodium ABG Potassium ABG Chloride ABG Glucose Oxyhemoglobin Carboxyhemoglobin Sodium Potassium Chloride Carbon Dioxide BUN Creatinine Glucose POC Glucose 157 H Hemoglobin A1c Lactic Acid Calcium Phosphorus 5.60 H D Magnesium Ferritin Total Bilirubin AST ALT Lactate Dehydrogenase C-Reactive Protein Albumin Triglycerides Arterial Blood Glucose Arterial Blood Ionized Calcium Urine Creatinine Coronavirus (PCR) Crossmatch 02/05/21 02/05/21 02/05/21 03:44 05:27 09:15 WBC RBC Hgb Hct MCV MCH MCHC RDW Plt Count Lymph % (Auto) Lymph # (Auto) Seg Neutrophils % Seg Neuts % (Manual) Lymphocytes % (Manual) Nucleated RBC % Seg Neutrophils # Seg Neutrophils # Man Lymphocytes # (Manual) Eosinophils # (Manual) INR D-Dimer ABG pH 7.202 L POC ABG pCO2 63.7 H POC ABG pO2 69.0 L ABG pO2 ABG HCO3 ABG O2 Saturation ABG Base Excess ABG Hemoglobin 9.4 L ABG Oxyhemoglobin ABG Sodium ABG Potassium ABG Chloride 108.0 H ABG Glucose 186 H Oxyhemoglobin Carboxyhemoglobin Sodium Potassium Chloride Carbon Dioxide BUN 78 H Creatinine 8.0 H Glucose 163 H POC Glucose 157 H Hemoglobin A1c Lactic Acid Calcium 6.3 L Phosphorus Magnesium Ferritin Total Bilirubin AST ALT Lactate Dehydrogenase C-Reactive Protein Albumin Triglycerides Arterial Blood Glucose 186 H Arterial Blood Ionized Calcium 3.9 L Urine Creatinine Coronavirus (PCR) Crossmatch 02/05/21 02/05/21 02/05/21 11:47 17:39 23:40 WBC RBC Hgb Hct MCV MCH MCHC RDW Plt Count Lymph % (Auto) Lymph # (Auto) Seg Neutrophils % Seg Neuts % (Manual) Lymphocytes % (Manual) Nucleated RBC % Seg Neutrophils # Seg Neutrophils # Man Lymphocytes # (Manual) Eosinophils # (Manual) INR D-Dimer ABG pH 7.273 L POC ABG pCO2 62.1 H POC ABG pO2 72.0 L ABG pO2 ABG HCO3 ABG O2 Saturation ABG Base Excess ABG Hemoglobin 9.1 L ABG Oxyhemoglobin 91.3 L ABG Sodium ABG Potassium 3.1 L ABG Chloride ABG Glucose 125 H Oxyhemoglobin Carboxyhemoglobin Sodium Potassium Chloride Carbon Dioxide BUN Creatinine Glucose POC Glucose 126 H 126 H Hemoglobin A1c Lactic Acid Calcium Phosphorus Magnesium Ferritin Total Bilirubin AST ALT Lactate Dehydrogenase C-Reactive Protein Albumin Triglycerides Arterial Blood Glucose 125 H Arterial Blood Ionized Calcium 4.0 L Urine Creatinine Coronavirus (PCR) Crossmatch 02/06/21 02/06/21 02/06/21 04:30 04:57 09:45 WBC RBC Hgb Hct MCV MCH MCHC RDW Plt Count Lymph % (Auto) Lymph # (Auto) Seg Neutrophils % Seg Neuts % (Manual) Lymphocytes % (Manual) Nucleated RBC % Seg Neutrophils # Seg Neutrophils # Man Lymphocytes # (Manual) Eosinophils # (Manual) INR D-Dimer ABG pH 7.159 L 7.138 L* POC ABG pCO2 76.3 H POC ABG pO2 66.9 L ABG pO2 ABG HCO3 ABG O2 Saturation 93.4 L ABG Base Excess -6.0 L ABG Hemoglobin 11.2 L 11.7 L ABG Oxyhemoglobin 88.2 L ABG Sodium ABG Potassium ABG Chloride ABG Glucose 134 H Oxyhemoglobin 91.2 L Carboxyhemoglobin Sodium Potassium Chloride Carbon Dioxide BUN Creatinine Glucose POC Glucose 124 H Hemoglobin A1c Lactic Acid Calcium Phosphorus Magnesium Ferritin Total Bilirubin AST ALT Lactate Dehydrogenase C-Reactive Protein Albumin Triglycerides Arterial Blood Glucose 134 H Arterial Blood Ionized Calcium 3.9 L Urine Creatinine Coronavirus (PCR) Crossmatch 02/06/21 02/06/21 02/06/21 11:11 17:00 17:00 WBC RBC Hgb Hct MCV MCH MCHC RDW Plt Count Lymph % (Auto) Lymph # (Auto) Seg Neutrophils % Seg Neuts % (Manual) Lymphocytes % (Manual) Nucleated RBC % Seg Neutrophils # Seg Neutrophils # Man Lymphocytes # (Manual) Eosinophils # (Manual) INR D-Dimer ABG pH 7.158 L* POC ABG pCO2 POC ABG pO2 ABG pO2 109.8 H ABG HCO3 28.7 H ABG O2 Saturation ABG Base Excess -2.5 L ABG Hemoglobin ABG Oxyhemoglobin ABG Sodium ABG Potassium ABG Chloride ABG Glucose Oxyhemoglobin 94.5 L Carboxyhemoglobin Sodium Potassium Chloride Carbon Dioxide BUN Creatinine Glucose POC Glucose 120 H Hemoglobin A1c Lactic Acid Calcium Phosphorus Magnesium Ferritin Total Bilirubin AST ALT Lactate Dehydrogenase C-Reactive Protein Albumin Triglycerides 503 H Arterial Blood Glucose Arterial Blood Ionized Calcium Urine Creatinine Coronavirus (PCR) Crossmatch 02/06/21 02/06/21 02/06/21 17:28 20:16 Unknown WBC 13.5 H RBC 2.98 L Hgb 9.3 L Hct 28.6 L MCV 96 H MCH MCHC RDW Plt Count Lymph % (Auto) Lymph # (Auto) Seg Neutrophils % Seg Neuts % (Manual) 87.0 H Lymphocytes % (Manual) 7.0 L Nucleated RBC % Seg Neutrophils # Seg Neutrophils # Man 11.7 H Lymphocytes # (Manual) 0.9 L Eosinophils # (Manual) 0.5 H INR D-Dimer ABG pH POC ABG pCO2 POC ABG pO2 ABG pO2 ABG HCO3 ABG O2 Saturation ABG Base Excess ABG Hemoglobin ABG Oxyhemoglobin ABG Sodium ABG Potassium ABG Chloride ABG Glucose Oxyhemoglobin Carboxyhemoglobin Sodium Potassium Chloride Carbon Dioxide BUN Creatinine Glucose POC Glucose 147 H 164 H Hemoglobin A1c Lactic Acid Calcium Phosphorus Magnesium Ferritin Total Bilirubin AST ALT Lactate Dehydrogenase C-Reactive Protein Albumin Triglycerides Arterial Blood Glucose Arterial Blood Ionized Calcium Urine Creatinine Coronavirus (PCR) Crossmatch 02/06/21 02/07/21 02/07/21 Unknown 01:21 04:00 WBC 12.0 H RBC 2.61 L Hgb 8.2 L Hct 24.5 L MCV MCH MCHC RDW Plt Count Lymph % (Auto) 8.9 L Lymph # (Auto) 1.1 L Seg Neutrophils % 86.3 H Seg Neuts % (Manual) Lymphocytes % (Manual) Nucleated RBC % Seg Neutrophils # 10.3 H Seg Neutrophils # Man Lymphocytes # (Manual) Eosinophils # (Manual) INR D-Dimer ABG pH POC ABG pCO2 POC ABG pO2 ABG pO2 ABG HCO3 ABG O2 Saturation ABG Base Excess ABG Hemoglobin ABG Oxyhemoglobin ABG Sodium ABG Potassium ABG Chloride ABG Glucose Oxyhemoglobin Carboxyhemoglobin Sodium Potassium 3.5 L Chloride Carbon Dioxide BUN 58 H Creatinine 6.6 H Glucose 107 H POC Glucose 173 H Hemoglobin A1c Lactic Acid Calcium 6.7 L Phosphorus 8.00 H D Magnesium Ferritin Total Bilirubin AST ALT Lactate Dehydrogenase C-Reactive Protein Albumin Triglycerides Arterial Blood Glucose Arterial Blood Ionized Calcium Urine Creatinine Coronavirus (PCR) Crossmatch 02/07/21 02/07/21 02/07/21 04:00 04:45 11:49 WBC RBC Hgb Hct MCV MCH MCHC RDW Plt Count Lymph % (Auto) Lymph # (Auto) Seg Neutrophils % Seg Neuts % (Manual) Lymphocytes % (Manual) Nucleated RBC % Seg Neutrophils # Seg Neutrophils # Man Lymphocytes # (Manual) Eosinophils # (Manual) INR D-Dimer ABG pH 7.287 L POC ABG pCO2 64.8 H POC ABG pO2 74.0 L ABG pO2 ABG HCO3 ABG O2 Saturation ABG Base Excess ABG Hemoglobin 9.1 L ABG Oxyhemoglobin 92.0 L ABG Sodium ABG Potassium 2.8 L ABG Chloride ABG Glucose 226 H Oxyhemoglobin Carboxyhemoglobin Sodium Potassium Chloride Carbon Dioxide BUN Creatinine Glucose POC Glucose 170 H Hemoglobin A1c Lactic Acid Calcium Phosphorus 5.50 H D Magnesium Ferritin Total Bilirubin AST ALT Lactate Dehydrogenase C-Reactive Protein Albumin Triglycerides Arterial Blood Glucose 226 H Arterial Blood Ionized Calcium 3.7 L Urine Creatinine Coronavirus (PCR) Crossmatch 02/07/21 02/07/21 02/07/21 13:48 17:45 23:02 WBC RBC Hgb Hct MCV MCH MCHC RDW Plt Count Lymph % (Auto) Lymph # (Auto) Seg Neutrophils % Seg Neuts % (Manual) Lymphocytes % (Manual) Nucleated RBC % Seg Neutrophils # Seg Neutrophils # Man Lymphocytes # (Manual) Eosinophils # (Manual) INR D-Dimer ABG pH POC ABG pCO2 POC ABG pO2 ABG pO2 ABG HCO3 ABG O2 Saturation ABG Base Excess ABG Hemoglobin ABG Oxyhemoglobin ABG Sodium ABG Potassium ABG Chloride ABG Glucose Oxyhemoglobin Carboxyhemoglobin Sodium 136 L Potassium 2.6 L* D Chloride 95.1 L Carbon Dioxide 33 H D BUN 30 H Creatinine 3.6 H Glucose 184 H POC Glucose 172 H 172 H Hemoglobin A1c Lactic Acid Calcium 6.9 L Phosphorus Magnesium Ferritin Total Bilirubin AST ALT Lactate Dehydrogenase C-Reactive Protein Albumin Triglycerides Arterial Blood Glucose Arterial Blood Ionized Calcium Urine Creatinine Coronavirus (PCR) Crossmatch 02/08/21 02/08/21 02/08/21 05:22 06:00 06:00 WBC RBC 2.21 L Hgb 7.2 L Hct 21.0 L MCV 95 H MCH MCHC RDW Plt Count Lymph % (Auto) Lymph # (Auto) Seg Neutrophils % Seg Neuts % (Manual) 87.0 H Lymphocytes % (Manual) 4.0 L Nucleated RBC % Seg Neutrophils # Seg Neutrophils # Man 8.5 H Lymphocytes # (Manual) 0.4 L Eosinophils # (Manual) INR D-Dimer ABG pH POC ABG pCO2 POC ABG pO2 ABG pO2 ABG HCO3 ABG O2 Saturation ABG Base Excess ABG Hemoglobin ABG Oxyhemoglobin ABG Sodium ABG Potassium ABG Chloride ABG Glucose Oxyhemoglobin Carboxyhemoglobin Sodium 136 L Potassium 2.4 L* Chloride 93.1 L Carbon Dioxide 36 H BUN 43 H Creatinine 5.4 H Glucose 167 H POC Glucose 162 H Hemoglobin A1c Lactic Acid Calcium 6.3 L Phosphorus Magnesium Ferritin Total Bilirubin AST ALT Lactate Dehydrogenase C-Reactive Protein Albumin Triglycerides Arterial Blood Glucose Arterial Blood Ionized Calcium Urine Creatinine Coronavirus (PCR) Crossmatch 02/08/21 02/08/21 02/08/21 11:44 17:53 18:56 WBC RBC Hgb Hct MCV MCH MCHC RDW Plt Count Lymph % (Auto) Lymph # (Auto) Seg Neutrophils % Seg Neuts % (Manual) Lymphocytes % (Manual) Nucleated RBC % Seg Neutrophils # Seg Neutrophils # Man Lymphocytes # (Manual) Eosinophils # (Manual) INR D-Dimer ABG pH POC ABG pCO2 POC ABG pO2 ABG pO2 ABG HCO3 ABG O2 Saturation ABG Base Excess ABG Hemoglobin ABG Oxyhemoglobin ABG Sodium ABG Potassium ABG Chloride ABG Glucose Oxyhemoglobin Carboxyhemoglobin Sodium Potassium 2.9 L* D Chloride Carbon Dioxide BUN Creatinine Glucose POC Glucose 164 H 154 H Hemoglobin A1c Lactic Acid Calcium Phosphorus Magnesium Ferritin Total Bilirubin AST ALT Lactate Dehydrogenase C-Reactive Protein Albumin Triglycerides Arterial Blood Glucose Arterial Blood Ionized Calcium Urine Creatinine Coronavirus (PCR) Crossmatch 02/08/21 02/08/21 02/09/21 23:24 23:58 03:21 WBC RBC Hgb Hct MCV MCH MCHC RDW Plt Count Lymph % (Auto) Lymph # (Auto) Seg Neutrophils % Seg Neuts % (Manual) Lymphocytes % (Manual) Nucleated RBC % Seg Neutrophils # Seg Neutrophils # Man Lymphocytes # (Manual) Eosinophils # (Manual) INR D-Dimer ABG pH 7.319 L POC ABG pCO2 63.3 H 68.3 H POC ABG pO2 71.2 L 76.5 L ABG pO2 ABG HCO3 ABG O2 Saturation ABG Base Excess ABG Hemoglobin 8.2 L 7.0 L ABG Oxyhemoglobin 91.8 L 92.2 L ABG Sodium 134.6 L 133.0 L ABG Potassium 2.3 L 3.1 L ABG Chloride 96.0 L 95.0 L ABG Glucose 184 H 154 H Oxyhemoglobin Carboxyhemoglobin Sodium Potassium Chloride Carbon Dioxide BUN Creatinine Glucose POC Glucose 152 H Hemoglobin A1c Lactic Acid Calcium Phosphorus Magnesium Ferritin Total Bilirubin AST ALT Lactate Dehydrogenase C-Reactive Protein Albumin Triglycerides Arterial Blood Glucose 184 H 154 H Arterial Blood Ionized Calcium 3.6 L 3.5 L Urine Creatinine Coronavirus (PCR) Crossmatch 02/09/21 02/09/21 02/09/21 05:10 05:10 06:04 WBC RBC 2.14 L Hgb 7.0 L Hct 20.5 L MCV 96 H MCH 33 H MCHC RDW Plt Count Lymph % (Auto) Lymph # (Auto) Seg Neutrophils % Seg Neuts % (Manual) 82.0 H Lymphocytes % (Manual) 9.0 L Nucleated RBC % 1.0 H Seg Neutrophils # Seg Neutrophils # Man 8.9 H Lymphocytes # (Manual) 1.0 L Eosinophils # (Manual) INR D-Dimer ABG pH POC ABG pCO2 POC ABG pO2 ABG pO2 ABG HCO3 ABG O2 Saturation ABG Base Excess ABG Hemoglobin ABG Oxyhemoglobin ABG Sodium ABG Potassium ABG Chloride ABG Glucose Oxyhemoglobin Carboxyhemoglobin Sodium 135 L Potassium 3.2 L Chloride 91.0 L Carbon Dioxide 32 H BUN 54 H Creatinine 6.6 H Glucose 163 H POC Glucose 149 H Hemoglobin A1c Lactic Acid Calcium 6.2 L Phosphorus Magnesium Ferritin Total Bilirubin AST ALT Lactate Dehydrogenase C-Reactive Protein Albumin Triglycerides Arterial Blood Glucose Arterial Blood Ionized Calcium Urine Creatinine Coronavirus (PCR) Crossmatch 02/09/21 02/09/21 02/09/21 12:02 13:32 13:40 WBC RBC Hgb Hct MCV MCH MCHC RDW Plt Count Lymph % (Auto) Lymph # (Auto) Seg Neutrophils % Seg Neuts % (Manual) Lymphocytes % (Manual) Nucleated RBC % Seg Neutrophils # Seg Neutrophils # Man Lymphocytes # (Manual) Eosinophils # (Manual) INR D-Dimer ABG pH POC ABG pCO2 POC ABG pO2 ABG pO2 ABG HCO3 ABG O2 Saturation ABG Base Excess ABG Hemoglobin ABG Oxyhemoglobin ABG Sodium ABG Potassium ABG Chloride ABG Glucose Oxyhemoglobin Carboxyhemoglobin Sodium Potassium Chloride Carbon Dioxide BUN Creatinine Glucose POC Glucose 147 H Hemoglobin A1c Lactic Acid Calcium Phosphorus Magnesium Ferritin Total Bilirubin AST ALT Lactate Dehydrogenase C-Reactive Protein Albumin Triglycerides 250 H Arterial Blood Glucose Arterial Blood Ionized Calcium Urine Creatinine Coronavirus (PCR) Crossmatch See Detail 02/09/21 02/09/21 02/10/21 18:06 23:42 04:00 WBC RBC Hgb Hct MCV MCH MCHC RDW Plt Count Lymph % (Auto) Lymph # (Auto) Seg Neutrophils % Seg Neuts % (Manual) Lymphocytes % (Manual) Nucleated RBC % Seg Neutrophils # Seg Neutrophils # Man Lymphocytes # (Manual) Eosinophils # (Manual) INR D-Dimer ABG pH POC ABG pCO2 65.8 H POC ABG pO2 68.0 L ABG pO2 ABG HCO3 ABG O2 Saturation ABG Base Excess ABG Hemoglobin 8.3 L ABG Oxyhemoglobin ABG Sodium 132.4 L ABG Potassium 2.9 L ABG Chloride 92.0 L ABG Glucose 174 H Oxyhemoglobin Carboxyhemoglobin Sodium Potassium Chloride Carbon Dioxide BUN Creatinine Glucose POC Glucose 152 H 147 H Hemoglobin A1c Lactic Acid Calcium Phosphorus Magnesium Ferritin Total Bilirubin AST ALT Lactate Dehydrogenase C-Reactive Protein Albumin Triglycerides Arterial Blood Glucose 174 H Arterial Blood Ionized Calcium 3.4 L Urine Creatinine Coronavirus (PCR) Crossmatch 02/10/21 02/10/21 02/10/21 05:32 11:29 14:08 WBC 12.5 H RBC 2.14 L Hgb 6.6 L Hct 20.2 L MCV MCH MCHC RDW Plt Count Lymph % (Auto) Lymph # (Auto) Seg Neutrophils % Seg Neuts % (Manual) Lymphocytes % (Manual) Nucleated RBC % Seg Neutrophils # Seg Neutrophils # Man Lymphocytes # (Manual) Eosinophils # (Manual) INR D-Dimer ABG pH POC ABG pCO2 POC ABG pO2 ABG pO2 ABG HCO3 ABG O2 Saturation ABG Base Excess ABG Hemoglobin ABG Oxyhemoglobin ABG Sodium ABG Potassium ABG Chloride ABG Glucose Oxyhemoglobin Carboxyhemoglobin Sodium Potassium Chloride Carbon Dioxide BUN Creatinine Glucose POC Glucose 167 H 147 H Hemoglobin A1c Lactic Acid Calcium Phosphorus Magnesium Ferritin Total Bilirubin AST ALT Lactate Dehydrogenase C-Reactive Protein Albumin Triglycerides Arterial Blood Glucose Arterial Blood Ionized Calcium Urine Creatinine Coronavirus (PCR) Crossmatch 02/10/21 02/10/21 02/10/21 14:08 18:11 22:32 WBC RBC Hgb 6.4 L Hct 19.1 L* MCV MCH MCHC RDW Plt Count Lymph % (Auto) Lymph # (Auto) Seg Neutrophils % Seg Neuts % (Manual) Lymphocytes % (Manual) Nucleated RBC % Seg Neutrophils # Seg Neutrophils # Man Lymphocytes # (Manual) Eosinophils # (Manual) INR D-Dimer ABG pH POC ABG pCO2 POC ABG pO2 ABG pO2 ABG HCO3 ABG O2 Saturation ABG Base Excess ABG Hemoglobin ABG Oxyhemoglobin ABG Sodium ABG Potassium ABG Chloride ABG Glucose Oxyhemoglobin Carboxyhemoglobin Sodium 136 L Potassium 2.9 L* Chloride 90.2 L Carbon Dioxide 33 H BUN 42 H Creatinine 7.5 H Glucose 155 H POC Glucose 173 H Hemoglobin A1c Lactic Acid Calcium 6.1 L Phosphorus Magnesium Ferritin Total Bilirubin AST ALT Lactate Dehydrogenase C-Reactive Protein Albumin Triglycerides Arterial Blood Glucose Arterial Blood Ionized Calcium Urine Creatinine Coronavirus (PCR) Crossmatch 02/11/21 02/11/21 02/11/21 00:28 04:05 04:30 WBC RBC Hgb Hct MCV MCH MCHC RDW Plt Count Lymph % (Auto) Lymph # (Auto) Seg Neutrophils % Seg Neuts % (Manual) Lymphocytes % (Manual) Nucleated RBC % Seg Neutrophils # Seg Neutrophils # Man Lymphocytes # (Manual) Eosinophils # (Manual) INR D-Dimer ABG pH 7.307 L POC ABG pCO2 72.2 H POC ABG pO2 72.3 L ABG pO2 ABG HCO3 ABG O2 Saturation ABG Base Excess ABG Hemoglobin 8.2 L ABG Oxyhemoglobin ABG Sodium 132.3 L ABG Potassium 3.2 L ABG Chloride 91.0 L ABG Glucose 197 H Oxyhemoglobin Carboxyhemoglobin Sodium 135 L Potassium 3.3 L Chloride 87.1 L Carbon Dioxide 36 H BUN 71 H Creatinine 7.9 H Glucose 263 H POC Glucose 192 H Hemoglobin A1c Lactic Acid Calcium 6.2 L Phosphorus Magnesium Ferritin Total Bilirubin AST ALT Lactate Dehydrogenase C-Reactive Protein Albumin Triglycerides Arterial Blood Glucose 197 H Arterial Blood Ionized Calcium 3.3 L Urine Creatinine Coronavirus (PCR) Crossmatch 02/11/21 02/11/21 02/11/21 04:30 05:47 08:27 WBC RBC 2.22 L Hgb 7.2 L Hct 21.0 L MCV MCH MCHC RDW Plt Count Lymph % (Auto) 8.7 L Lymph # (Auto) 0.9 L Seg Neutrophils % 85.5 H Seg Neuts % (Manual) Lymphocytes % (Manual) Nucleated RBC % Seg Neutrophils # 9.2 H Seg Neutrophils # Man Lymphocytes # (Manual) Eosinophils # (Manual) INR 1.17 H D-Dimer 1930.92 H ABG pH POC ABG pCO2 POC ABG pO2 ABG pO2 ABG HCO3 ABG O2 Saturation ABG Base Excess ABG Hemoglobin ABG Oxyhemoglobin ABG Sodium ABG Potassium ABG Chloride ABG Glucose Oxyhemoglobin Carboxyhemoglobin Sodium Potassium Chloride Carbon Dioxide BUN Creatinine Glucose POC Glucose 189 H Hemoglobin A1c Lactic Acid Calcium Phosphorus Magnesium Ferritin Total Bilirubin AST ALT Lactate Dehydrogenase C-Reactive Protein Albumin Triglycerides Arterial Blood Glucose Arterial Blood Ionized Calcium Urine Creatinine Coronavirus (PCR) Crossmatch 02/11/21 02/11/21 02/11/21 09:00 09:00 13:18 WBC RBC Hgb Hct MCV MCH MCHC RDW Plt Count Lymph % (Auto) Lymph # (Auto) Seg Neutrophils % Seg Neuts % (Manual) Lymphocytes % (Manual) Nucleated RBC % Seg Neutrophils # Seg Neutrophils # Man Lymphocytes # (Manual) Eosinophils # (Manual) INR D-Dimer ABG pH POC ABG pCO2 POC ABG pO2 ABG pO2 ABG HCO3 ABG O2 Saturation ABG Base Excess ABG Hemoglobin ABG Oxyhemoglobin ABG Sodium ABG Potassium ABG Chloride ABG Glucose Oxyhemoglobin Carboxyhemoglobin Sodium Potassium Chloride Carbon Dioxide BUN Creatinine Glucose 126 H POC Glucose 160 H Hemoglobin A1c Lactic Acid Calcium Phosphorus Magnesium Ferritin 1253.0 H Total Bilirubin AST ALT Lactate Dehydrogenase 649 H C-Reactive Protein 12.60 H Albumin Triglycerides Arterial Blood Glucose Arterial Blood Ionized Calcium Urine Creatinine Coronavirus (PCR) Crossmatch 02/11/21 02/11/21 02/11/21 14:30 16:59 22:34 WBC RBC Hgb 7.1 L 6.7 L Hct 20.5 L 19.9 L* MCV MCH MCHC RDW Plt Count Lymph % (Auto) Lymph # (Auto) Seg Neutrophils % Seg Neuts % (Manual) Lymphocytes % (Manual) Nucleated RBC % Seg Neutrophils # Seg Neutrophils # Man Lymphocytes # (Manual) Eosinophils # (Manual) INR D-Dimer ABG pH POC ABG pCO2 POC ABG pO2 ABG pO2 ABG HCO3 ABG O2 Saturation ABG Base Excess ABG Hemoglobin ABG Oxyhemoglobin ABG Sodium ABG Potassium ABG Chloride ABG Glucose Oxyhemoglobin Carboxyhemoglobin Sodium Potassium Chloride Carbon Dioxide BUN Creatinine Glucose POC Glucose 151 H Hemoglobin A1c Lactic Acid Calcium Phosphorus Magnesium Ferritin Total Bilirubin AST ALT Lactate Dehydrogenase C-Reactive Protein Albumin Triglycerides Arterial Blood Glucose Arterial Blood Ionized Calcium Urine Creatinine Coronavirus (PCR) Crossmatch 02/11/21 02/12/21 02/12/21 23:42 04:41 05:19 WBC RBC Hgb Hct MCV MCH MCHC RDW Plt Count Lymph % (Auto) Lymph # (Auto) Seg Neutrophils % Seg Neuts % (Manual) Lymphocytes % (Manual) Nucleated RBC % Seg Neutrophils # Seg Neutrophils # Man Lymphocytes # (Manual) Eosinophils # (Manual) INR D-Dimer ABG pH POC ABG pCO2 POC ABG pO2 ABG pO2 69.0 L ABG HCO3 32.5 H ABG O2 Saturation ABG Base Excess 7.7 H ABG Hemoglobin 5.1 L ABG Oxyhemoglobin ABG Sodium ABG Potassium ABG Chloride ABG Glucose Oxyhemoglobin 94.7 L Carboxyhemoglobin Sodium Potassium Chloride Carbon Dioxide BUN Creatinine Glucose POC Glucose 165 H 153 H Hemoglobin A1c Lactic Acid Calcium Phosphorus Magnesium Ferritin Total Bilirubin AST ALT Lactate Dehydrogenase C-Reactive Protein Albumin Triglycerides Arterial Blood Glucose Arterial Blood Ionized Calcium Urine Creatinine Coronavirus (PCR) Crossmatch 02/12/21 02/12/21 02/12/21 06:35 06:35 08:40 WBC RBC 2.21 L Hgb 7.2 L Hct 20.7 L MCV MCH 33 H MCHC 35 H RDW Plt Count Lymph % (Auto) Lymph # (Auto) Seg Neutrophils % Seg Neuts % (Manual) Lymphocytes % (Manual) Nucleated RBC % Seg Neutrophils # Seg Neutrophils # Man Lymphocytes # (Manual) Eosinophils # (Manual) INR D-Dimer ABG pH POC ABG pCO2 POC ABG pO2 ABG pO2 ABG HCO3 ABG O2 Saturation ABG Base Excess ABG Hemoglobin ABG Oxyhemoglobin ABG Sodium ABG Potassium ABG Chloride ABG Glucose Oxyhemoglobin Carboxyhemoglobin Sodium 135 L Potassium 3.4 L Chloride 91.8 L Carbon Dioxide 36 H BUN 57 H Creatinine 6.8 H Glucose 163 H POC Glucose Hemoglobin A1c Lactic Acid Calcium 7.0 L Phosphorus Magnesium 1.60 L Ferritin Total Bilirubin AST ALT Lactate Dehydrogenase C-Reactive Protein Albumin Triglycerides Arterial Blood Glucose Arterial Blood Ionized Calcium Urine Creatinine Coronavirus (PCR) Crossmatch 02/12/21 02/12/21 02/12/21 10:45 12:04 17:19 WBC RBC Hgb Hct MCV MCH MCHC RDW Plt Count Lymph % (Auto) Lymph # (Auto) Seg Neutrophils % Seg Neuts % (Manual) Lymphocytes % (Manual) Nucleated RBC % Seg Neutrophils # Seg Neutrophils # Man Lymphocytes # (Manual) Eosinophils # (Manual) INR D-Dimer ABG pH POC ABG pCO2 POC ABG pO2 ABG pO2 ABG HCO3 ABG O2 Saturation ABG Base Excess ABG Hemoglobin ABG Oxyhemoglobin ABG Sodium ABG Potassium ABG Chloride ABG Glucose Oxyhemoglobin Carboxyhemoglobin Sodium Potassium Chloride Carbon Dioxide BUN Creatinine Glucose POC Glucose 165 H 165 H Hemoglobin A1c Lactic Acid Calcium Phosphorus Magnesium Ferritin Total Bilirubin AST ALT Lactate Dehydrogenase C-Reactive Protein Albumin Triglycerides 182 H Arterial Blood Glucose Arterial Blood Ionized Calcium Urine Creatinine Coronavirus (PCR) Crossmatch 02/12/21 02/13/21 02/13/21 23:18 05:00 05:36 WBC RBC Hgb Hct MCV MCH MCHC RDW Plt Count Lymph % (Auto) Lymph # (Auto) Seg Neutrophils % Seg Neuts % (Manual) Lymphocytes % (Manual) Nucleated RBC % Seg Neutrophils # Seg Neutrophils # Man Lymphocytes # (Manual) Eosinophils # (Manual) INR D-Dimer ABG pH POC ABG pCO2 60.8 H POC ABG pO2 76.4 L ABG pO2 ABG HCO3 ABG O2 Saturation ABG Base Excess ABG Hemoglobin 7.4 L ABG Oxyhemoglobin ABG Sodium 133.2 L ABG Potassium 3.3 L ABG Chloride 96.0 L ABG Glucose 168 H Oxyhemoglobin Carboxyhemoglobin Sodium Potassium Chloride Carbon Dioxide BUN Creatinine Glucose POC Glucose 163 H 151 H Hemoglobin A1c Lactic Acid Calcium Phosphorus Magnesium Ferritin Total Bilirubin AST ALT Lactate Dehydrogenase C-Reactive Protein Albumin Triglycerides Arterial Blood Glucose 168 H Arterial Blood Ionized Calcium 4.3 L Urine Creatinine Coronavirus (PCR) Crossmatch 02/13/21 02/13/21 02/13/21 06:40 06:40 06:40 WBC RBC 2.19 L Hgb 7.0 L Hct 20.8 L MCV 95 H MCH MCHC RDW Plt Count Lymph % (Auto) Lymph # (Auto) Seg Neutrophils % Seg Neuts % (Manual) Lymphocytes % (Manual) Nucleated RBC % Seg Neutrophils # Seg Neutrophils # Man Lymphocytes # (Manual) Eosinophils # (Manual) INR D-Dimer ABG pH POC ABG pCO2 POC ABG pO2 ABG pO2 ABG HCO3 ABG O2 Saturation ABG Base Excess ABG Hemoglobin ABG Oxyhemoglobin ABG Sodium ABG Potassium ABG Chloride ABG Glucose Oxyhemoglobin Carboxyhemoglobin Sodium 135 L Potassium 3.4 L Chloride 93.0 L Carbon Dioxide 32 H BUN 46 H Creatinine 5.8 H Glucose 148 H POC Glucose Hemoglobin A1c Lactic Acid Calcium 7.9 L Phosphorus Magnesium Ferritin Total Bilirubin AST ALT Lactate Dehydrogenase C-Reactive Protein 16.80 H Albumin Triglycerides Arterial Blood Glucose Arterial Blood Ionized Calcium Urine Creatinine Coronavirus (PCR) Crossmatch 02/13/21 02/13/21 02/13/21 06:40 07:38 07:38 WBC RBC Hgb Hct MCV MCH MCHC RDW Plt Count Lymph % (Auto) Lymph # (Auto) Seg Neutrophils % Seg Neuts % (Manual) Lymphocytes % (Manual) Nucleated RBC % Seg Neutrophils # Seg Neutrophils # Man Lymphocytes # (Manual) Eosinophils # (Manual) INR D-Dimer 1722.16 H ABG pH POC ABG pCO2 POC ABG pO2 ABG pO2 ABG HCO3 ABG O2 Saturation ABG Base Excess ABG Hemoglobin ABG Oxyhemoglobin ABG Sodium ABG Potassium ABG Chloride ABG Glucose Oxyhemoglobin Carboxyhemoglobin Sodium Potassium Chloride Carbon Dioxide BUN Creatinine Glucose POC Glucose Hemoglobin A1c Lactic Acid Calcium Phosphorus Magnesium 1.60 L Ferritin 976.5 H Total Bilirubin AST ALT Lactate Dehydrogenase C-Reactive Protein Albumin Triglycerides Arterial Blood Glucose Arterial Blood Ionized Calcium Urine Creatinine Coronavirus (PCR) Crossmatch 02/13/21 02/13/21 02/13/21 12:24 16:57 23:32 WBC RBC Hgb Hct MCV MCH MCHC RDW Plt Count Lymph % (Auto) Lymph # (Auto) Seg Neutrophils % Seg Neuts % (Manual) Lymphocytes % (Manual) Nucleated RBC % Seg Neutrophils # Seg Neutrophils # Man Lymphocytes # (Manual) Eosinophils # (Manual) INR D-Dimer ABG pH POC ABG pCO2 POC ABG pO2 ABG pO2 ABG HCO3 ABG O2 Saturation ABG Base Excess ABG Hemoglobin ABG Oxyhemoglobin ABG Sodium ABG Potassium ABG Chloride ABG Glucose Oxyhemoglobin Carboxyhemoglobin Sodium Potassium Chloride Carbon Dioxide BUN Creatinine Glucose POC Glucose 141 H 156 H 161 H Hemoglobin A1c Lactic Acid Calcium Phosphorus Magnesium Ferritin Total Bilirubin AST ALT Lactate Dehydrogenase C-Reactive Protein Albumin Triglycerides Arterial Blood Glucose Arterial Blood Ionized Calcium Urine Creatinine Coronavirus (PCR) Crossmatch 02/14/21 02/14/21 02/14/21 04:00 05:41 11:00 WBC RBC 2.14 L Hgb 6.9 L Hct 20.7 L MCV 97 H MCH 33 H MCHC RDW Plt Count Lymph % (Auto) Lymph # (Auto) Seg Neutrophils % Seg Neuts % (Manual) Lymphocytes % (Manual) Nucleated RBC % Seg Neutrophils # Seg Neutrophils # Man Lymphocytes # (Manual) Eosinophils # (Manual) INR D-Dimer ABG pH POC ABG pCO2 POC ABG pO2 ABG pO2 ABG HCO3 ABG O2 Saturation ABG Base Excess ABG Hemoglobin ABG Oxyhemoglobin ABG Sodium ABG Potassium ABG Chloride ABG Glucose Oxyhemoglobin Carboxyhemoglobin Sodium Potassium Chloride Carbon Dioxide BUN Creatinine Glucose POC Glucose 143 H Hemoglobin A1c Lactic Acid Calcium Phosphorus Magnesium Ferritin Total Bilirubin AST ALT Lactate Dehydrogenase C-Reactive Protein Albumin Triglycerides Arterial Blood Glucose Arterial Blood Ionized Calcium Urine Creatinine Coronavirus (PCR) Crossmatch See Detail 02/14/21 02/14/21 11:51 Unknown WBC RBC Hgb Hct MCV MCH MCHC RDW Plt Count Lymph % (Auto) Lymph # (Auto) Seg Neutrophils % Seg Neuts % (Manual) Lymphocytes % (Manual) Nucleated RBC % Seg Neutrophils # Seg Neutrophils # Man Lymphocytes # (Manual) Eosinophils # (Manual) INR D-Dimer ABG pH POC ABG pCO2 POC ABG pO2 ABG pO2 ABG HCO3 ABG O2 Saturation ABG Base Excess ABG Hemoglobin ABG Oxyhemoglobin ABG Sodium ABG Potassium ABG Chloride ABG Glucose Oxyhemoglobin Carboxyhemoglobin Sodium Potassium Chloride 96.9 L Carbon Dioxide 33 H BUN 40 H Creatinine 5.2 H Glucose 152 H POC Glucose 113 H Hemoglobin A1c Lactic Acid Calcium 7.9 L Phosphorus Magnesium Ferritin Total Bilirubin AST ALT Lactate Dehydrogenase C-Reactive Protein Albumin Triglycerides Arterial Blood Glucose Arterial Blood Ionized Calcium Urine Creatinine Coronavirus (PCR) Crossmatch Chest x-ray: report reviewed, image reviewed
[2021-02-14] MEDS: EPOETIN ALFA-EPBX 20,000 UNIT/1 ML VIAL IV PRN (21:30)
--- NOTE | 2021-02-15 00:16 | Consultation ---
REFERRING PHYSICIAN: Melanie Adkins MD. INDICATIONS: 1. Anemia. 2. Heme-positive stool. HISTORY OF PRESENT ILLNESS: The patient is a 60-year-old male who was admitted on 01/23/2021 when he presented with progressive shortness of breath for 3 days. The patient subsequently was admitted. The patient subsequently was diagnosed with COVID pneumonia, intubated and is currently still on the vent since that time. The patient was noted to have a hemoglobin of 7, which he stated that way for the last recent days. He was noted to be heme positive and GI is consulted to aid in management. Per staff, no obvious signs of GI bleeding including bright red blood per rectum, melena or hematemesis. No history of GI bleed in the past. No other specific complaints. PAST MEDICAL HISTORY: 1. Hypertension. 2. Diabetes. 3. High cholesterol. 4. Renal failure. 5. Hidradenitis. MEDICATIONS: Reviewed and updated in chart. ALLERGIES: No known drug allergies. SOCIAL HISTORY: No reported alcohol or tobacco. FAMILY HISTORY: Negative for colon cancer. REVIEW OF SYSTEMS: GENERAL: Reports some weakness. HEENT: ____ visual complaints. PULMONARY: Shortness of breath. CARDIOVASCULAR: Denies chest pain. GASTROINTESTINAL: No specific complaints per chart. All 13-point of review of systems is otherwise negative. PHYSICAL EXAMINATION: VITAL SIGNS: Temperature of 99.9, pulse 80, respirations 20, blood pressure 117/70. GENERAL: Intubated, sedated, in no acute distress. HEENT: Pupils equal, round, reactive. PULMONARY: Rhonchi. CARDIOVASCULAR: Regular rhythm. ABDOMEN: Soft. SKIN: No obvious rashes. LABORATORY DATA: Pertinent for white count of 10.1, hemoglobin and hematocrit of 6.9 and 20.7, platelet count of 241. ASSESSMENT AND PLAN: A 60-year-old male with COVID positive pneumonia, multiple medical issues at this time being seen by GI for noted anemia and heme positive stool. The patient's hemoglobin has stayed about 7 for at least 5 days. I have discussed with nursing staff and no signs of active bleeding. The patient has overall poor prognosis. Given that we would want to take a conservative approach. PLAN: 1. Follow hematocrit and transfuse as needed. 2. PPI IV b.i.d. 3. Pneumonia and other medical issues per primary team. 4. No plans to scope at this time. 5. Given the patient's current status and no signs of active bleeding, we will sign off, call if situation changes. JOB# [id number] CAB/NTS
[2021-02-15] MEDS: fentaNYL DRIP Premix 2,000 MCG/100 ML BAG IV SCH ×6 (01:19→22:40)
[2021-02-15] MEDS: dexmedeTOMIDine 1,000 MCG in SODIUM CHLORIDE 0.9% 250ML 250 ML IV SCH ×4 (04:31→23:28)
[2021-02-15 05:33] LABS: Hematocrit 22.1 % (35.5-45.6); Hemoglobin 7.1 gm/dl (11.8-15.2); Mean Corpuscular HGB Conc 32 % (32-34); Mean Corpuscular Volume 96 fl (84-94); Platelet Count 258 K/mm3 (140-440); Red Cell Distribution Width 15.7 % (13.2-15.2)
[2021-02-15 05:36] LABS: Basophils % (Auto) 0.6 % (0.0-1.8); Eosinophils % (Auto) 1.2 % (0.0-4.3); Monocytes % (Auto) 4.2 % (0.0-7.3)
[2021-02-15 05:37] LABS: Basophils # (Auto) 0.1 K/mm3 (0.0-0.1); Eosinophils # (Auto) 0.1 K/mm3 (0.0-0.4); Lymphocytes # (Auto) 1.1 K/mm3 (1.2-5.4); Monocytes # (Auto) 0.4 K/mm3 (0.0-0.8)
[2021-02-15 05:52] LABS: Calcium 9.6 mg/dL (8.4-10.2)
[2021-02-15] MEDS: PANTOPRAZOLE 40 MG INJ IV SCH (10:00)
--- NOTE | 2021-02-15 10:11 | Progress Note ---
Assessment and Plan Cultures: Blood culture 02/08/2021 no growth today SARS CoV2 PCR positive 01/22/2021 respiratory culture: Usual respiratory dillon Blood Culture 01/30/2021 no growth today Urine culture 01/30/2021 no growth today Sputum culture 01/30/2021 usual respiratory dillon Blood culture 02/04/2021 coag negative staph 2 of 4 Urine culture 02/04/2021 no growth Sputum culture 02/04/2021 Maegan albicans Assessment: 60 year old male with history of morbid obesity admitted on 01/22/2021 secondary to 3-day history of worsening shortness of breath associated with fever, chills, loss of smell and taste: #Severe sepsis with septic shock: resolved, off pressors. #Coag-neg Staph bacteremia: new blood culture on 02/04/2021 with GPC 2 of 4 bottles, possible real. Completed treatment 7 days of vancomycin. #Critical COVID-19 pneumonia: Patient remains intubated. Chest x-ray with bilateral airspace disease. Completed remdesivir, steroids, empiric abx course. #Acute respiratory failure: Remains on the vent. #Transaminitis: Likely secondary to COVID-19. resolved #DEISI: requiring hemodialysis. Recommendations: -off abx. monitor for fever -poor prognosis Melida Byrne MD, FACP [facility] ([facility] O: [phone] F: [phone] Subjective Date of service: 02/15/21 Principal diagnosis: DEISI Interval history: No fever. Remains on the vent. Objective - Exam Narrative Exam: Physical Exam (reviewed in chart to minimize risk of transmission) Constitutional: deferred Head, Ears, Nose: deferred Eyes: deferred Neck: deferred Oral: deferred Cardiovascular: deferred Respiratory: deferred GI: deferred Musculoskeletal: deferred Skin: deferred Hem/Lymphatic: deferred Psych: deferred Neurological: deferred - Constitutional Vitals: Vital Signs Temp Pulse Resp BP Pulse Ox 99.3 F 94 H 34 H 109/66 95 02/15/21 08:00 02/15/21 09:00 02/15/21 09:00 02/15/21 09:00 02/15/21 09:00 Temperature -Last 24 Hours Temperature 99.3 F Temperature 99.3 F Temperature 98.9 F Temperature 98.3 F Temperature 99.5 F Temperature 99.5 F Temperature 99.5 F Temperature 99.4 F Temperature 99.4 F Temperature 99.3 F Temperature 99.3 F Temperature 98.4 F Temperature 98.9 F Temperature 98.9 F - Labs CBC & Chem 7: 02/15/21 05:00 02/15/21 05:00 Labs: Abnormal lab results 02/14/21 02/14/21 02/14/21 Range/Units 11:00 11:51 18:08 RBC (3.65-5.03) M/mm3 Hgb (11.8-15.2) gm/dl Hct (35.5-45.6) % MCV (84-94) fl RDW (13.2-15.2) % Lymph % (Auto) (13.4-35.0) % Lymph # (Auto) (1.2-5.4) K/mm3 Seg Neutrophils % (40.0-70.0) % Seg Neutrophils # (1.8-7.7) K/mm3 POC ABG pCO2 (32.0-48.0) mmHg POC ABG pO2 (83-108) mmHg ABG Hemoglobin (12.0-17.5) ABG Oxyhemoglobin (94-98) ABG Glucose (65-95) mg/dL Carboxyhemoglobin (0.5-1.5) Carbon Dioxide (22-30) mmol/L BUN (9-20) mg/dL Creatinine (0.8-1.3) mg/dL Glucose (75-100) mg/dL POC Glucose 113 H 123 H (70-105) mg/dL Arterial Blood Glucose (65-95) mg/dL Crossmatch See Detail 02/14/21 02/15/21 02/15/21 Range/Units 23:41 05:00 05:00 RBC (3.65-5.03) M/mm3 Hgb (11.8-15.2) gm/dl Hct (35.5-45.6) % MCV (84-94) fl RDW (13.2-15.2) % Lymph % (Auto) (13.4-35.0) % Lymph # (Auto) (1.2-5.4) K/mm3 Seg Neutrophils % (40.0-70.0) % Seg Neutrophils # (1.8-7.7) K/mm3 POC ABG pCO2 53.4 H (32.0-48.0) mmHg POC ABG pO2 61.8 L (83-108) mmHg ABG Hemoglobin 7.7 L (12.0-17.5) ABG Oxyhemoglobin 88.8 L (94-98) ABG Glucose 143 H (65-95) mg/dL Carboxyhemoglobin 1.6 H (0.5-1.5) Carbon Dioxide 31 H (22-30) mmol/L BUN 38 H (9-20) mg/dL Creatinine 4.8 H (0.8-1.3) mg/dL Glucose 132 H (75-100) mg/dL POC Glucose 120 H (70-105) mg/dL Arterial Blood Glucose 143 H (65-95) mg/dL Crossmatch 02/15/21 02/15/21 Range/Units 05:00 05:27 RBC 2.30 L (3.65-5.03) M/mm3 Hgb 7.1 L (11.8-15.2) gm/dl Hct 22.1 L (35.5-45.6) % MCV 96 H (84-94) fl RDW 15.7 H (13.2-15.2) % Lymph % (Auto) 11.0 L (13.4-35.0) % Lymph # (Auto) 1.1 L (1.2-5.4) K/mm3 Seg Neutrophils % 83.0 H (40.0-70.0) % Seg Neutrophils # 8.6 H (1.8-7.7) K/mm3 POC ABG pCO2 (32.0-48.0) mmHg POC ABG pO2 (83-108) mmHg ABG Hemoglobin (12.0-17.5) ABG Oxyhemoglobin (94-98) ABG Glucose (65-95) mg/dL Carboxyhemoglobin (0.5-1.5) Carbon Dioxide (22-30) mmol/L BUN (9-20) mg/dL Creatinine (0.8-1.3) mg/dL Glucose (75-100) mg/dL POC Glucose 133 H (70-105) mg/dL Arterial Blood Glucose (65-95) mg/dL Crossmatch
--- NOTE | 2021-02-15 11:17 | Progress Note ---
Assessment and Plan This is a 60-year-old male with diabetes mellitus, hypertension, hyperlipidemia, chronic renal insufficiency who was admitted on 01/23 as a COVID-19 PUI with Sepsis, COVID-19 pneumonia, coag negative staph bacteremia, acute hypoxic respiratory failure, and acute kidney injury. Severe sepsis with septic shock -Status post pressor support COVID-19 pneumonia Coag-neg Staph bacteremia Acute hypoxic respiratory failure Acute kidney injury on CKD due to ATN, HD initiated / Anemia of chronic disease requiring transfusion Hyponatremia Hypokalemia Hypochloremia Metabolic alkalosis Diabetes mellitus Hypertension Hyperlipidemia Elevated D-dimer -CCM, nephrology, infectious disease consulted, appreciate recommendations -Antibiotic therapy -COVID-19 PCR positive, Pneumonia on CXR -Steroid therapy, s/p remdesivir -Mechanical ventilation, wean as tolerated -VAP bundle -HD per nephrology -Trend BMP, cBC -Bilateral lower extremity and upper extremity Doppler ultrasound negative for DVT/SVT -off Lovenox due to anemia -SSI and Long-acting insulin -Accu-Cheks every 6 while on tube feedings -Blood pressure monitoring per protocol -s/p NaHCO3 gtt -Sedated with Precedex, Ativan, fentanyl DVT/GI prophylaxis: SCDs to bilateral lower extremities while in bed, heparin subcu, PPI Dispo: ICU The high probability of a clinically significant, sudden or life threatening deterioration of the [multi] system(s) required my full and direct attention, intervention and personal management. The aggregate critical care time was [32] minutes. This time is in addition to time spent performing reported procedures but includes the following: [x] Data Review and interpretation [x] Patient assessment and monitoring of vital signs [x] Documentation [x] Medication orders and management Brief History This is a 60-year-old male with diabetes mellitus, hypertension, hyperlipidemia, chronic renal insufficiency presents to the emergency department on 01/23 with shortness of breath, fevers chills, loss of smell and taste and body aches for the past 3 days via EMS. Per EMS patient's oxygen saturation on room air was 50% and after being placed on nonrebreather it increased 75%. Upon arrival to the emergency department patient was being bagged by EMS. In the emergency room patient was intubated due to severe hypoxia, increased work of breathing and lethargy. Patient was sedated on propofol and fentanyl. Patient presented with fever, tachycardia, tachypnea and acute hypoxic respiratory failure with PNA on CXR meeting Sepsis criteria. Lab work in the emergency department revealed hyponatremia, hypokalemia, hypochloremia, elevated CR/BUN and CXR showed bilateral pneumonia. Patient was admitted to the hospital service as a COVID-19 PUI with consults to infectious disease, nephrology and critical care medicine. 01/24/2021: Patient is intubated and sedated, patient is positive for COVID-19 infection. ID was consulted and put on dexamethasone and remdesivir. Patient has DEISI and nephrology is following. Creatinine stable, patient is urinating. Discussed with nephrology and he is okay with remdesivir. Pulmonary critical care is following for his vent setting. PEEP of 8 and FiO2 of 85%. Patient was alert and off sedatives. 01/25/2021; patient is intubated and on mechanical ventilation. Continue with treatment of Covid. Nephrology and ID is following. Pulmonary is following for vent management 01/26: Remains on mechanical ventilation and [facility] increased his PEEP. [facility] has ordered Precedex for sedation. Possibly need to prone this p.m. No acute events reported overnight. This morning his D-dimer is greater than 10,000 and we have started him on Lovenox 120 mg daily. Nutrition has been consulted for initiation of tube feedings. Patient remains sedated on propofol 40 and fenta nyl for the time my examination this morning. 01/27: Continue Lovenox, remdesivir and empiric antibiotics. Patient had a T-max of 101 overnight. The time of examination patient is on CMV 500/18/14/0.61. Kidney function slightly worsened. Sedated on fentanyl ground-level fall and Precedex. Nephrology has increased IV fluids to 100 ml/hr. Continue to trend BMP and CBC. Sedation vacation attempt by RN this AM. 01/28: Patient completed antibiotics today [facility] will paralyze patient and increase sedation. PICC line ordered for possible vasopressor therapy need. Patient's D-dimer remains greater than 10,000 and he still has hyperchloremia. Patient's kidney function has improved today. May need to prone the patient if no improvement in oxygenation is noted in the next 24 hours. The time of my examination patient is sedated with propofol, fentanyl and Precedex and is on assist control 500/18/16/0.80 hypoxic on ABG on 60% FiO2. 01/29: Patient was started on Nimbex yesterday and his ABG this morning showed respiratory acidosis with hypercapnia and his respiratory rate was increased. We will obtain a repeat ABG this afternoon. This morning patient is hypernatremic, hyperkalemic and hyperchloremic. His potassium has been corrected with the management and will obtain repeat BMP tomorrow. His kidney functions have remained stable and we will await nephrology's input. No acute events reported overnight. This morning the time my examination patient sedated with propofol, Precedex and fentanyl and paralyzed with Nimbex. He is on assist control 500/24/16 0.80. 01/30: This morning patient is hypokalemic again and was given Kayexalate. Patient has hypernatremia and hyper chloremia and his renal function is slightly worse after receiving Lasix yesterday. His D-dimer remains greater than 10,000 and he is still on a paralytic. Patient is sedated on Precedex, fentanyl, propofol. Mechanical ventilation settings seven-point 2/69/61/28. [facility] has decided to continue paralytics for 48 more hours and will attempt proning the patient. Increased free water flushes 300 cc every 4 hours. Patient states has restarted his antibiotics cefepime and vancomycin and recultured. 01/31/21 Hyperkalemia, Treated 02/01/21 Hyperkalemia, Treated 02/02: Patient's kidney function continues to worsen and a stat BMP this morning shows BUN/creatinine 20/6.1 and he remains hypocalcemic and hypernatremic, hypokalemic and hypochloremic. Patient received 2 g of calcium gluconate and Kayexalate and his repeat potassium was 4.3 this afternoon. He remains antibiotic therapy and steroids. Nephrology has placed the patient on bicarb drip given metabolic acidosis and has decided to hold off hemodialysis till tomorrow.The time my examination patient is sedated on fentanyl, Precedex and on assist control 500/20/12/0.70. s/p paralytic. 02/03: Today patient's ABG shows respiratory acidosis however it is improving, hypernatremia, hyperchloremia, metabolic acidosis on BMP, worsening kidney function BUN/creatinine 130/9.2 with hyperphosphatemia. Patient received a Vas- Cath to his right IJ for initiation of dialysis. At the time of my examination patient remains sedated on fentanyl, propofol and Precedex with vasopressor support with Levophed at 2. 02/04: At the time of examination patient was on assist control tidal volume 500, rate 40, PEEP of 12, FiO2 85%. Patient had a T-max of 100.9 and infectious disease has stopped his vancomycin given negative MRSA. This afternoon patient respiked his temperature and was pancultured again. Patient was started on hemodialysis yesterday and will receive HD again today. Patient is sedated on Precedex, propofol, fentanyl and remains on Levophed. He is on assist control tidal volume 500, rate of 30, PEEP of 12, FiO2 of 85%. Patient still has some respiratory acidosis however his hypernatremia and hyperchloremia have improved and his metabolic acidosis has resolved. Patient will receive hemodialysis today 02/05: Patient continues to have low-grade fever temp this morning time examination he was on assist control tidal volume 500, and sedated on propofol/fentanyl/Precedex and is on Levophed. Hemodialysis per nephrology. Antibiotics per ID. Patient's blood culture from 02/04 grew gram-positive cocci in clusters in 1/2 bottles and he was started on vancomycin. 02/06: Patients ABG showed respiratory acidosis and the tracings were changed however a repeat ABG showed showed acidosis.[facility] will start a bicarb drip after giving 2 amps of bicarb push. Yesterday patient blood cultures grew gram- positive cocci and he was started on vancomycin. At the time my examination patient was on assist control tidal volume 550, rate 34, PEEP 16, FiO2 90% and sedated on fentanyl, Precedex, propofol elevated pressure support with Levophed. Bilateral lower extremity Doppler ultrasounds done yesterday showed no evidence of DVT/SVT. 02/07/2021; patient is still on the vent with PEEP of 16 and FiO2 of 90%, sedated with fentanyl Precedex and propofol. Patient still requiring Levophed. Patient was sedated yesterday and was given bicarb push. Blood culture grew gram-positive cocci in clusters and he is on vancomycin, will follow identification. 02/08/2021;patient is still on the vent with PEEP of 16 and FiO2 of 90%, sedated with fentanyl Precedex and propofol. Patient still requiring Levophed. Patient was sedated yesterday and was given bicarb push. Blood culture grew gram- positive cocci in clusters and he is on vancomycin, will follow identification. Patient is currently on dialysis. Patient is anemic transfuse if hemoglobin is below 7. 12: This morning patient has slight hypokalemia, hypochorlemia, hyponatremia and metabolic alkalosis. [facility] will continue bicarb gtt given that the patient does not have HD access at this time. We will replete the potassium and recheck BMP in the AM. We will type and cross in anticipation of PRBC transfusion. This morning he is sedated on Ativan, fentayl, and precedex. Will obtain a triglyc eride level today in hopes to resume propofol. Patient is alkalotic and BMP however we will continue with bicarb drip per [facility] given that the patient does not have any access for hemodialysis. Anticipate replacing hemodialysis catheter tomorrow or Tuesday. The time my examination he is on AC TV 550, Rate 34, PeeP 16, FiO2 .65. 02/10: A.m. labs still pending, [facility] plans to replace HD catheter tomorrow as the patient is still febrile however his fever curve is trending down, remains on a bicarb drip and on vancomycin. Today at the time my examination patient was sedated on Precedex, Ativan and fentanyl and he is on assist control tidal 11/04/1951, rate 34, PEEP 16, FiO2 65%. Overnight patient was hypotensive and received 1 dose of midodrine. 02/11: Patient is still having low-grade temperatures that we will obtain a bilateral lower upper extremity venous Doppler ultrasound given that his repeat cultures have been negative so far. Patient received a Vas-Cath today for hemodialysis. The time examination patient is on assist control tidal volume 550, rate of 34, PEEP of 16 and FiO2 of 75%. Patient was hypokalemic and anemic yesterday which were both repleted with potassium and 1 unit PRBC. 02/12: Patient had a 12-second run of V. tach today, his potassium and magnesium were low which was repleted. Renal adjusted potassium bath. We will obtain a triglyceride level in hopes to restarting to prevent as needed. This morning at the time my examination patient was sedated on fentanyl, Ativan and Precedex and remained on a bicarb drip. He was on assist control tidal volume 550, rate 34, PEEP 16, FiO2 85%. We will obtain a occult stool given no evident source of bleeding and need for transfusion. Anemia possibly due to hemodialysis. 02/13: Patient's T-max was 100.7, remains on fentanyl, Ativan, Precedex and bicarb drip this morning at some examination on assist control tidal volume 550, rate 34, PEEP 16 and FiO2 85%. On the labs this morning is slightly hypokalemic and remains metabolic alkalotic on BMP. His occult was positive. His Lovenox and consult GI. Patient received hemodialysis today. 02/14: cont PPI, GI recommended to scope now, monitor clinically, tolerating TF, remains intubated. Hb 6.9 today - transfuse another unit. very poor prognosis. 02/15: H&H appears to be stable following 1 unit of transfusion yesterday. Continue to hold heparin and aspirin products. Continue to monitor clinically. Poor prognosis. Wean off from vent as tolerated. Hospitalist Physical General appearance: Present: no acute distress, well-nourished, other (Sedated on mechanical ventilation) - EENT Eyes: Present: PERRL ENT: poor dentition - Neck Neck: Present: normal ROM - Respiratory Respiratory effort: normal - Cardiovascular Rhythm: regular Heart Sounds: Present: S1 & S2. Absent: systolic murmur, diastolic murmur - Extremities Extremities: no ischemia, pulses intact, pulses symmetrical, normal temperature, normal color Peripheral Pulses: within normal limits - Abdominal General gastrointestinal: soft, non-tender, non-distended, normal bowel sounds - Integumentary Integumentary: Present: warm, dry - Psychiatric Psychiatric: other (sedated) - Neurologic Neurologic: moves all extremities, other (sedated) - Allied Health Allied health notes reviewed: nursing, RT, social work Subjective Date of service: 02/15/21 Principal diagnosis: DEISI Interval history: Patient seen and examined. Medical records and medication list reviewed. remains intubated , clinically unchanged, vitals noted Discussed plan of care at bedside with patient's RN. Objective - Constitutional Vitals: Vital Signs - 12hr 02/14/21 02/15/21 02/15/21 23:37 00:00 01:00 Temperature 98.3 F Pulse Rate 76 81 92 H Pulse Rate [ 91 H From Monitor] Respiratory 34 H 35 H Rate Blood Pressure 106/60 104/60 115/65 O2 Sat by Pulse 96 95 94 Oximetry 02/15/21 02/15/21 02/15/21 02:00 03:00 04:00 Temperature 98.9 F Pulse Rate 95 H 97 H 92 H Pulse Rate [ 91 H From Monitor] Respiratory 37 H 35 H 34 H Rate Blood Pressure 107/60 137/76 137/76 O2 Sat by Pulse 93 94 93 Oximetry 02/15/21 02/15/21 02/15/21 04:02 05:00 06:00 Temperature Pulse Rate 92 H 94 H 99 H Pulse Rate [ From Monitor] Respiratory 36 H 32 H Rate Blood Pressure 137/76 121/72 129/74 O2 Sat by Pulse 95 93 94 Oximetry 02/15/21 02/15/21 02/15/21 07:00 07:48 07:55 Temperature 99.3 F Pulse Rate 104 H 110 H Pulse Rate [ From Monitor] Respiratory 32 H Rate Blood Pressure 129/73 129/73 O2 Sat by Pulse 90 95 Oximetry 02/15/21 02/15/21 02/15/21 08:00 09:00 10:00 Temperature 99.3 F Pulse Rate 108 H 94 H 89 Pulse Rate [ 91 H From Monitor] Respiratory 34 H 34 H 0 L Rate Blood Pressure 134/76 109/66 107/63 O2 Sat by Pulse 95 95 95 Oximetry 02/15/21 11:00 Temperature Pulse Rate 99 H Pulse Rate [ From Monitor] Respiratory 34 H Rate Blood Pressure 123/71 O2 Sat by Pulse 97 Oximetry - Labs CBC & Chem 7: 02/16/21 Unknown 02/16/21 06:00 Labs: Abnormal lab results 02/14/21 02/14/21 02/14/21 Range/Units 11:00 11:51 18:08 RBC (3.65-5.03) M/mm3 Hgb (11.8-15.2) gm/dl Hct (35.5-45.6) % MCV (84-94) fl RDW (13.2-15.2) % Lymph % (Auto) (13.4-35.0) % Lymph # (Auto) (1.2-5.4) K/mm3 Seg Neutrophils % (40.0-70.0) % Seg Neutrophils # (1.8-7.7) K/mm3 POC ABG pCO2 (32.0-48.0) mmHg POC ABG pO2 (83-108) mmHg ABG Hemoglobin (12.0-17.5) ABG Oxyhemoglobin (94-98) ABG Glucose (65-95) mg/dL Carboxyhemoglobin (0.5-1.5) Carbon Dioxide (22-30) mmol/L BUN (9-20) mg/dL Creatinine (0.8-1.3) mg/dL Glucose (75-100) mg/dL POC Glucose 113 H 123 H (70-105) mg/dL Arterial Blood Glucose (65-95) mg/dL Crossmatch See Detail 02/14/21 02/15/21 02/15/21 Range/Units 23:41 05:00 05:00 RBC (3.65-5.03) M/mm3 Hgb (11.8-15.2) gm/dl Hct (35.5-45.6) % MCV (84-94) fl RDW (13.2-15.2) % Lymph % (Auto) (13.4-35.0) % Lymph # (Auto) (1.2-5.4) K/mm3 Seg Neutrophils % (40.0-70.0) % Seg Neutrophils # (1.8-7.7) K/mm3 POC ABG pCO2 53.4 H (32.0-48.0) mmHg POC ABG pO2 61.8 L (83-108) mmHg ABG Hemoglobin 7.7 L (12.0-17.5) ABG Oxyhemoglobin 88.8 L (94-98) ABG Glucose 143 H (65-95) mg/dL Carboxyhemoglobin 1.6 H (0.5-1.5) Carbon Dioxide 31 H (22-30) mmol/L BUN 38 H (9-20) mg/dL Creatinine 4.8 H (0.8-1.3) mg/dL Glucose 132 H (75-100) mg/dL POC Glucose 120 H (70-105) mg/dL Arterial Blood Glucose 143 H (65-95) mg/dL Crossmatch 02/15/21 02/15/21 Range/Units 05:00 05:27 RBC 2.30 L (3.65-5.03) M/mm3 Hgb 7.1 L (11.8-15.2) gm/dl Hct 22.1 L (35.5-45.6) % MCV 96 H (84-94) fl RDW 15.7 H (13.2-15.2) % Lymph % (Auto) 11.0 L (13.4-35.0) % Lymph # (Auto) 1.1 L (1.2-5.4) K/mm3 Seg Neutrophils % 83.0 H (40.0-70.0) % Seg Neutrophils # 8.6 H (1.8-7.7) K/mm3 POC ABG pCO2 (32.0-48.0) mmHg POC ABG pO2 (83-108) mmHg ABG Hemoglobin (12.0-17.5) ABG Oxyhemoglobin (94-98) ABG Glucose (65-95) mg/dL Carboxyhemoglobin (0.5-1.5) Carbon Dioxide (22-30) mmol/L BUN (9-20) mg/dL Creatinine (0.8-1.3) mg/dL Glucose (75-100) mg/dL POC Glucose 133 H (70-105) mg/dL Arterial Blood Glucose (65-95) mg/dL Crossmatch HEART Score - HEART Score Risk factors: 1-2 risk factors Troponin: < normal limit - Critical Actions Critical Actions: 0-3 pts:0.9-1.7%risk of adverse cardiac event.Candidate for discharge
--- NOTE | 2021-02-15 12:40 | Progress Note ---
Assessment and Plan Acute Hypoxic respiratory failure COVID-19 PNA Severe sepsis with septic shock Acute kidney injury secondary to ATN Hyperkalemia Hypernatremia DM2 on insulin Plan: s/p HD yesterday, no HD today, HD tomorrow will cont daily HD for now primarily for UF Assess need for HD on daily basis Initiated on HD on 02/03/21 s/p Right IJ Trialysis dialysis catheter placement by Dr Reddy Strict I&O Renally dose meds Subjective Date of service: 02/15/21 Principal diagnosis: DEISI Interval history: Intubated. Objective - Exam Narrative Exam: GE:Intubated HEENT:Limited due to Covid Neck:Limited due to Covid Chest:On Vent CVS:Limited due to Covid Abd:Limited due to Covid Neuro:Sedated - Vital Signs Vital signs: Vital Signs - 12hr 02/15/21 02/15/21 02/15/21 01:00 02:00 03:00 Temperature Pulse Rate 92 H 95 H 97 H Pulse Rate [ From Monitor] Respiratory 35 H 37 H 35 H Rate Blood Pressure 115/65 107/60 137/76 O2 Sat by Pulse 94 93 94 Oximetry 02/15/21 02/15/21 02/15/21 04:00 04:02 05:00 Temperature 98.9 F Pulse Rate 92 H 92 H 94 H Pulse Rate [ 91 H From Monitor] Respiratory 34 H 36 H Rate Blood Pressure 137/76 137/76 121/72 O2 Sat by Pulse 93 95 93 Oximetry 02/15/21 02/15/21 02/15/21 06:00 07:00 07:48 Temperature 99.3 F Pulse Rate 99 H 104 H Pulse Rate [ From Monitor] Respiratory 32 H 32 H Rate Blood Pressure 129/74 129/73 O2 Sat by Pulse 94 90 Oximetry 02/15/21 02/15/21 02/15/21 07:55 08:00 09:00 Temperature 99.3 F Pulse Rate 110 H 108 H 94 H Pulse Rate [ 91 H From Monitor] Respiratory 34 H 34 H Rate Blood Pressure 129/73 134/76 109/66 O2 Sat by Pulse 95 95 95 Oximetry 02/15/21 02/15/21 02/15/21 10:00 11:00 12:30 Temperature 100.6 F H Pulse Rate 89 99 H Pulse Rate [ From Monitor] Respiratory 0 L 34 H Rate Blood Pressure 107/63 123/71 O2 Sat by Pulse 95 97 Oximetry 02/15/21 12:34 Temperature Pulse Rate 84 Pulse Rate [ From Monitor] Respiratory Rate Blood Pressure 103/63 O2 Sat by Pulse 95 Oximetry - Lab 02/15/21 05:00 02/15/21 05:00 Most recent lab results ABG pH 7.363 (7.320-7.450) 02/15/21 05:00 ABG pCO2 51.2 mm Hg 02/12/21 04:41 ABG pO2 69.0 mm Hg (80.0-90.0) L 02/12/21 04:41 ABG HCO3 32.5 mmol/L (20.0-26.0) H 02/12/21 04:41 ABG O2 Saturation 90.5 (0-100) 02/15/21 05:00 Calcium 9.6 mg/dL (8.4-10.2) D 02/15/21 05:00 Phosphorus 3.90 mg/dL (2.5-4.5) 02/13/21 06:40 Magnesium 1.60 mg/dL (1.7-2.3) L 02/13/21 06:40 Urine Creatinine 53.0 mg/dL (0.1-20.0) H 01/30/21 12:00 Urine Sodium 28 mmol/L 01/22/21 22:39 Medications & Allergies - Medications Allergies/Adverse Reactions: Allergies No Known Allergies Allergy (Unverified 03/12/20 13:41) Home Medications: Home Medications Medication Instructions Recorded Confirmed Last Taken Type Clindamycin [Clindamycin CAP] 300 mg PO Q8H #21 cap 03/12/20 Unknown Rx Insulin NPH/Regular [Novolin 70/30] 18 unit SUB-Q TIDAC #1 vial 03/12/20 Unknown Rx Syringe-Needle,Insulin,0.5 ml 1 box MC TID #1 box 03/12/20 Unknown Rx [Insulin Syringe/Needle 0.5 ML] Active Medications: Generic Name Dose Route Start Last Admin Trade Name Freq PRN Reason Stop Dose Admin Acetaminophen 650 mg 01/23/21 02:25 02/11/21 18:20 Acetaminophen 650 Mg Rect Supp ME 650 mg Q4H PRN Administration Pain, Mild (1-3) Acetaminophen 650 mg 01/24/21 12:58 02/11/21 04:09 Acetaminophen 325 Mg/10.15 Ml Oral Liqd Unit Dose FEEDTUBE 650 mg Q6H PRN Administration Pain, Mild (1-3) Lipase/Protease/Amylase 1 each 01/26/21 14:25 Lipase 10,500/Protease 25,000/Amylase 43,750 (Units) Dr Cap FEEDTUBE PRN PRN For Clogged Feeding Tube Dextrose 50 ml 01/27/21 07:24 Dextrose 50% In Water (25gm) 50 Ml Syringe IV Q30MIN PRN Hypoglycemia Protocol Fentanyl 50 mcg 01/22/21 22:39 02/10/21 13:46 Fentanyl 100 Mcg/2 Ml Inj IV 50 mcg Q10MIN PRN Administration ANALGESIA Heparin Sodium (Porcine) 2,000 unit 02/11/21 09:38 Heparin 10,000 Units/10 Ml Vial IV SAGRARIO PRN hemodialysis Hydrophilic Ointment 1 applic 01/22/21 22:39 Lip Therapy Vaseline TP Q2HR PRN Dry Lips Fentanyl Citrate 2,000 mcg in 100 mls @ 6.124 mls/hr 01/22/21 23:00 02/15/21 11:23 Fentanyl Drip Premix IV 4 mcg/kg/hr TITR CECE 24.494 mls/hr Administration Protocol 1 MCG/KG/HR Propofol 1,000 mg in 100 mls @ 3.674 mls/hr 01/22/21 23:45 02/06/21 18:37 Diprivan 10 Mg/Ml IV 0 mcg/kg/min TITR CECE 0 mls/hr Titration Protocol 5 MCG/KG/MIN Norepinephrine 4 mg in 250 mls @ 7.5 mls/hr 01/28/21 14:00 02/08/21 06:08 Levophed Drip 4 Mg/Ns 250 Ml IV 0 mcg/min TITR CECE 0 mls/hr Titration Protocol 2 MCG/MIN Dexmedetomidine HCl 1,000 mcg/ 260 mls @ 6.368 mls/hr 01/30/21 20:00 02/15/21 11:18 Sodium Chloride IV 1.4 mcg/kg/hr TITRATE CECE 44.579 mls/hr Administration Protocol 0.2 MCG/KG/HR Lorazepam 100 mg/ Sodium 100 mls @ 1 mls/hr 02/06/21 19:00 02/15/21 08:26 Chloride/ Miscellaneous IV 1 mg/hr Information TITR CECE 1 mls/hr Titration Protocol 1 MG/HR Sodium Chloride 100 mls @ 999 mls/hr 02/14/21 11:00 Nacl 0.9% IV SAGRARIO PRN Hypotension Multi-Ingred Cream/Lotion/Oil/Oint 1 applic 01/22/21 22:39 02/01/21 09:33 Mineral Oil/Petrolatum, White Ophth Oint 3.5 Gm OU 1 applic Q4HR PRN Administration Dry Eye(s) Ondansetron HCl 4 mg 01/23/21 02:17 Ondansetron 4 Mg/2 Ml Inj IV Q8H PRN Nausea And Vomiting Pantoprazole Sodium 40 mg 02/15/21 10:00 02/15/21 10:00 Pantoprazole 40 Mg Inj IV 40 mg DAILY CECE Administration Simple Syrup 15 ml 01/26/21 14:25 Simple Syrup 15 Ml FEEDTUBE PRN PRN Hypoglycemia Simple Syrup 30 ml 01/26/21 14:25 Simple Syrup 15 Ml FEEDTUBE PRN PRN Hypoglycemia Sodium Bicarbonate 325 mg 01/26/21 14:25 Sodium Bicarbonate 325 Mg Tab FEEDTUBE PRN PRN For Clogged Feeding Tube
[2021-02-15] MEDS: LORazepam 100 MG in SODIUM CHLORIDE 0.9% 50 ML, EMPTY BAG 0 ML IV SCH (15:20)
[2021-02-15] MEDS ORDERED: SODIUM CHLORIDE 0.9% 100 ML IV PRN (16:45)
[2021-02-15] MEDS: ACETAMINOPHEN 325 MG/10.15 ML ORAL LIQD UNIT DOSE FEEDTUBE PRN (18:06)
--- NOTE | 2021-02-15 22:16 | Progress Note ---
Assessment and Plan Imp: 1. Covid-19 2. Viral pneumonia 3. ARDS 4. Acute respiratory failure, hypoxia 5. Morbid obesity 6. DEISI 7. Anasarca Rec: 1. Cont. current management; wean FiO2 then PEEP; likely will need trach at some point 2. TFs, GI PPx, SCDs 3. Remove fluid as tolerated with HD 4. Further plans pending clinical course; prognosis poor 5. Complex decision-making Subjective Date of service: 02/15/21 Principal diagnosis: DEISI Interval history: No events. Sedated on ventilator, 75% FiO2 and PEEP of +16. Active Medications Acetaminophen (Acetaminophen 650 Mg Rect Supp) 650 mg AL Q4H PRN PRN Reason: Pain, Mild (1-3) Last Admin: 02/11/21 18:20 Dose: 650 mg Documented by: Acetaminophen (Acetaminophen 325 Mg/10.15 Ml Oral Liqd Unit Dose) 650 mg FEEDTUBE Q6H PRN PRN Reason: Pain, Mild (1-3) Last Admin: 02/15/21 18:06 Dose: 650 mg Documented by: Lipase/Protease/Amylase (Lipase 10,500/Protease 25,000/Amylase 43,750 (Units) Dr Cap) 1 each FEEDTUBE PRN PRN PRN Reason: For Clogged Feeding Tube Dextrose (Dextrose 50% In Water (25gm) 50 Ml Syringe) 50 ml IV Q30MIN PRN; Protocol PRN Reason: Hypoglycemia Fentanyl (Fentanyl 100 Mcg/2 Ml Inj) 50 mcg IV Q10MIN PRN PRN Reason: ANALGESIA Last Admin: 02/10/21 13:46 Dose: 50 mcg Documented by: Heparin Sodium (Porcine) (Heparin 10,000 Units/10 Ml Vial) 2,000 unit IV SAGRARIO PRN PRN Reason: hemodialysis Hydrophilic Ointment (Lip Therapy Vaseline) 1 applic TP Q2HR PRN PRN Reason: Dry Lips Fentanyl Citrate (Fentanyl Drip Premix) 2,000 mcg in 100 mls @ 6.124 mls/hr IV TITR CECE; Protocol Last Admin: 02/15/21 19:04 Dose: 4 mcg/kg/hr, 24.494 mls/hr Documented by: Propofol (Diprivan 10 Mg/Ml) 1,000 mg in 100 mls @ 3.674 mls/hr IV TITR CECE; Protocol Last Titration: 02/06/21 18:37 Dose: 0 mcg/kg/min, 0 mls/hr Documented by: Norepinephrine (Levophed Drip 4 Mg/Ns 250 Ml) 4 mg in 250 mls @ 7.5 mls/hr IV TITR CECE; Protocol Last Titration: 02/08/21 06:08 Dose: 0 mcg/min, 0 mls/hr Documented by: Dexmedetomidine HCl 1,000 mcg/ (Sodium Chloride) 260 mls @ 6.368 mls/hr IV TITRATE CECE; Protocol Last Admin: 02/15/21 16:28 Dose: 1.4 mcg/kg/hr, 44.579 mls/hr Documented by: Lorazepam 100 mg/ Sodium Chloride/ Miscellaneous Information 100 mls @ 1 mls/hr IV TITR CECE; Protocol Last Admin: 02/15/21 15:20 Dose: 1 mg/hr, 1 mls/hr Documented by: Sodium Chloride (Nacl 0.9%) 100 mls @ 999 mls/hr IV SAGRARIO PRN PRN Reason: Hypotension Sodium Chloride (Nacl 0.9%) 100 mls @ 999 mls/hr IV SAGRARIO PRN PRN Reason: Hypotension Multi-Ingred Cream/Lotion/Oil/Oint (Mineral Oil/Petrolatum, White Ophth Oint 3.5 Gm) 1 applic OU Q4HR PRN PRN Reason: Dry Eye(s) Last Admin: 02/01/21 09:33 Dose: 1 applic Documented by: Ondansetron HCl (Ondansetron 4 Mg/2 Ml Inj) 4 mg IV Q8H PRN PRN Reason: Nausea And Vomiting Pantoprazole Sodium (Pantoprazole 40 Mg Inj) 40 mg IV DAILY [facility] Last Admin: 02/15/21 10:00 Dose: 40 mg Documented by: Simple Syrup (Simple Syrup 15 Ml) 15 ml FEEDTUBE PRN PRN PRN Reason: Hypoglycemia Simple Syrup (Simple Syrup 15 Ml) 30 ml FEEDTUBE PRN PRN PRN Reason: Hypoglycemia Sodium Bicarbonate (Sodium Bicarbonate 325 Mg Tab) 325 mg FEEDTUBE PRN PRN PRN Reason: For Clogged Feeding Tube Objective Vital Signs - 12hr 02/15/21 02/15/21 02/15/21 11:00 12:00 12:30 Temperature 100.6 F H Pulse Rate 99 H 88 Pulse Rate [ 91 H From Monitor] Respiratory 34 H 28 H Rate Blood Pressure 123/71 103/63 O2 Sat by Pulse 97 94 Oximetry 02/15/21 02/15/21 02/15/21 12:34 13:00 14:00 Temperature Pulse Rate 84 83 82 Pulse Rate [ From Monitor] Respiratory 34 H 33 H Rate Blood Pressure 103/63 103/62 100/62 O2 Sat by Pulse 95 96 96 Oximetry 02/15/21 02/15/21 02/15/21 15:00 16:00 17:00 Temperature 99.8 F H Pulse Rate 83 86 88 Pulse Rate [ 91 H From Monitor] Respiratory 34 H 34 H 35 H Rate Blood Pressure 105/63 103/63 123/69 O2 Sat by Pulse 95 94 96 Oximetry 02/15/21 02/15/21 02/15/21 17:46 18:00 19:00 Temperature 99.9 F H Pulse Rate 95 H 89 Pulse Rate [ From Monitor] Respiratory 35 H 10 L Rate Blood Pressure 127/71 93/57 O2 Sat by Pulse 93 93 Oximetry 02/15/21 02/15/21 02/15/21 19:27 20:00 21:00 Temperature 99.4 F Pulse Rate 81 79 76 Pulse Rate [ 77 From Monitor] Respiratory 34 H 34 H Rate Blood Pressure 95/59 97/61 96/61 O2 Sat by Pulse 94 94 95 Oximetry 02/15/21 02/15/21 21:30 22:00 Temperature Pulse Rate 73 74 Pulse Rate [ From Monitor] Respiratory 34 H 34 H Rate Blood Pressure 94/57 99/59 O2 Sat by Pulse 95 94 Oximetry Constitutional: comatose Eyes: non-icteric ENT: other (orally intubated and sedated) Neck: supple Effort: mildly labored Ascultation: Bilateral: clear Cardiovascular: regular rate and rhythm (no mrg) Gastrointestinal: normoactive bowel sounds, soft, non-tender, non-distended Integumentary: normal Extremities: no cyanosis, no edema, pink and warm Neurologic: unable to assess CBC and BMP: 02/15/21 05:00 02/15/21 05:00 ABG, PT/INR, D-dimer: ABG ABG pH 7.363 (7.320-7.450) 02/15/21 05:00 POC ABG pCO2 53.4 mmHg (32.0-48.0) H 02/15/21 05:00 ABG pCO2 51.2 mm Hg 02/12/21 04:41 POC ABG pO2 61.8 mmHg (83-108) L 02/15/21 05:00 ABG pO2 69.0 mm Hg (80.0-90.0) L 02/12/21 04:41 POC ABG HCO3 29.7 02/15/21 05:00 ABG O2 Saturation 90.5 (0-100) 02/15/21 05:00 PT/INR, D-dimer PT 14.9 Sec. (12.2-14.9) 02/11/21 08:27 INR 1.17 (0.87-1.13) H 02/11/21 08:27 D-Dimer 1722.16 ng/mlDDU (0-234) H 02/13/21 07:38 Abnormal lab findings: Abnormal Labs 01/22/21 01/22/21 01/22/21 22:39 22:57 22:57 WBC RBC Hgb Hct MCV MCH MCHC RDW Plt Count Lymph % (Auto) 6.6 L Lymph # (Auto) 0.5 L Seg Neutrophils % 87.6 H Seg Neuts % (Manual) Lymphocytes % (Manual) Nucleated RBC % Seg Neutrophils # Seg Neutrophils # Man Lymphocytes # (Manual) Eosinophils # (Manual) INR D-Dimer ABG pH POC ABG pCO2 POC ABG pO2 ABG pO2 ABG HCO3 ABG O2 Saturation ABG Base Excess ABG Hemoglobin ABG Oxyhemoglobin ABG Sodium ABG Potassium ABG Chloride ABG Glucose Oxyhemoglobin Carboxyhemoglobin Sodium 129 L Potassium 3.4 L Chloride 90.4 L Carbon Dioxide BUN 34 H Creatinine 1.5 H Glucose 146 H POC Glucose Hemoglobin A1c Lactic Acid Calcium 7.8 L Phosphorus Magnesium Ferritin Total Bilirubin AST 75 H ALT 57 H Lactate Dehydrogenase C-Reactive Protein Albumin 2.9 L Triglycerides Arterial Blood Glucose Arterial Blood Ionized Calcium Urine Creatinine 301.2 H Coronavirus (PCR) Crossmatch 01/22/21 01/22/21 01/22/21 22:57 22:57 22:57 WBC RBC Hgb Hct MCV MCH MCHC RDW Plt Count Lymph % (Auto) Lymph # (Auto) Seg Neutrophils % Seg Neuts % (Manual) Lymphocytes % (Manual) Nucleated RBC % Seg Neutrophils # Seg Neutrophils # Man Lymphocytes # (Manual) Eosinophils # (Manual) INR D-Dimer 1173.89 H ABG pH POC ABG pCO2 POC ABG pO2 ABG pO2 ABG HCO3 ABG O2 Saturation ABG Base Excess ABG Hemoglobin ABG Oxyhemoglobin ABG Sodium ABG Potassium ABG Chloride ABG Glucose Oxyhemoglobin Carboxyhemoglobin Sodium Potassium Chloride Carbon Dioxide BUN Creatinine Glucose 149 H POC Glucose Hemoglobin A1c Lactic Acid 2.10 H* Calcium Phosphorus Magnesium Ferritin Total Bilirubin AST ALT Lactate Dehydrogenase 685 H C-Reactive Protein 30.40 H Albumin Triglycerides Arterial Blood Glucose Arterial Blood Ionized Calcium Urine Creatinine Coronavirus (PCR) Crossmatch 01/22/21 01/23/21 01/23/21 22:57 08:41 10:01 WBC RBC Hgb Hct MCV MCH MCHC RDW Plt Count Lymph % (Auto) Lymph # (Auto) Seg Neutrophils % Seg Neuts % (Manual) Lymphocytes % (Manual) Nucleated RBC % Seg Neutrophils # Seg Neutrophils # Man Lymphocytes # (Manual) Eosinophils # (Manual) INR D-Dimer ABG pH POC ABG pCO2 POC ABG pO2 ABG pO2 ABG HCO3 ABG O2 Saturation ABG Base Excess ABG Hemoglobin ABG Oxyhemoglobin ABG Sodium ABG Potassium ABG Chloride ABG Glucose Oxyhemoglobin Carboxyhemoglobin Sodium 131 L Potassium Chloride 88.7 L Carbon Dioxide 18 L BUN 36 H Creatinine 1.6 H Glucose 147 H POC Glucose Hemoglobin A1c Lactic Acid Calcium 7.5 L Phosphorus Magnesium Ferritin 1207.0 H Total Bilirubin AST ALT Lactate Dehydrogenase C-Reactive Protein Albumin Triglycerides Arterial Blood Glucose Arterial Blood Ionized Calcium Urine Creatinine Coronavirus (PCR) Positive A Crossmatch 01/23/21 01/23/21 01/24/21 20:49 Unknown 00:10 WBC RBC Hgb Hct MCV MCH MCHC RDW Plt Count Lymph % (Auto) Lymph # (Auto) Seg Neutrophils % Seg Neuts % (Manual) Lymphocytes % (Manual) Nucleated RBC % Seg Neutrophils # Seg Neutrophils # Man Lymphocytes # (Manual) Eosinophils # (Manual) INR D-Dimer ABG pH POC ABG pCO2 POC ABG pO2 ABG pO2 165.4 H ABG HCO3 ABG O2 Saturation ABG Base Excess -2.5 L ABG Hemoglobin ABG Oxyhemoglobin ABG Sodium ABG Potassium ABG Chloride ABG Glucose Oxyhemoglobin Carboxyhemoglobin Sodium 130 L Potassium Chloride 91.0 L Carbon Dioxide 20 L BUN 52 H Creatinine 3.8 H D Glucose 150 H POC Glucose 125 H Hemoglobin A1c Lactic Acid Calcium 8.0 L Phosphorus Magnesium Ferritin Total Bilirubin AST 42 H ALT Lactate Dehydrogenase C-Reactive Protein Albumin 2.4 L Triglycerides Arterial Blood Glucose Arterial Blood Ionized Calcium Urine Creatinine Coronavirus (PCR) Crossmatch 01/24/21 01/24/21 01/24/21 05:05 05:05 05:05 WBC 14.0 H RBC Hgb Hct MCV 95 H MCH 33 H MCHC RDW Plt Count Lymph % (Auto) Lymph # (Auto) Seg Neutrophils % Seg Neuts % (Manual) 91.0 H Lymphocytes % (Manual) 4.0 L Nucleated RBC % Seg Neutrophils # Seg Neutrophils # Man 12.7 H Lymphocytes # (Manual) 0.6 L Eosinophils # (Manual) INR D-Dimer 6159.48 H ABG pH POC ABG pCO2 POC ABG pO2 ABG pO2 ABG HCO3 ABG O2 Saturation ABG Base Excess ABG Hemoglobin ABG Oxyhemoglobin ABG Sodium ABG Potassium ABG Chloride ABG Glucose Oxyhemoglobin Carboxyhemoglobin Sodium Potassium Chloride Carbon Dioxide BUN Creatinine Glucose POC Glucose Hemoglobin A1c Lactic Acid Calcium Phosphorus Magnesium Ferritin 1178.0 H Total Bilirubin AST ALT Lactate Dehydrogenase C-Reactive Protein Albumin Triglycerides Arterial Blood Glucose Arterial Blood Ionized Calcium Urine Creatinine Coronavirus (PCR) Crossmatch 01/24/21 01/24/21 01/24/21 05:05 05:05 05:05 WBC RBC Hgb Hct MCV MCH MCHC RDW Plt Count Lymph % (Auto) Lymph # (Auto) Seg Neutrophils % Seg Neuts % (Manual) Lymphocytes % (Manual) Nucleated RBC % Seg Neutrophils # Seg Neutrophils # Man Lymphocytes # (Manual) Eosinophils # (Manual) INR D-Dimer ABG pH POC ABG pCO2 POC ABG pO2 ABG pO2 ABG HCO3 ABG O2 Saturation ABG Base Excess ABG Hemoglobin ABG Oxyhemoglobin ABG Sodium ABG Potassium ABG Chloride ABG Glucose Oxyhemoglobin Carboxyhemoglobin Sodium 132 L Potassium Chloride 93.1 L Carbon Dioxide 21 L BUN 57 H Creatinine 3.7 H Glucose 133 H POC Glucose Hemoglobin A1c Lactic Acid 2.20 H* Calcium 7.7 L Phosphorus Magnesium Ferritin Total Bilirubin AST ALT Lactate Dehydrogenase 658 H C-Reactive Protein 33.20 H Albumin 2.4 L Triglycerides Arterial Blood Glucose Arterial Blood Ionized Calcium Urine Creatinine Coronavirus (PCR) Crossmatch 01/24/21 01/24/2101/24/21 05:34 06:00 17:35 WBC RBC Hgb Hct MCV MCH MCHC RDW Plt Count Lymph % (Auto) Lymph # (Auto) Seg Neutrophils % Seg Neuts % (Manual) Lymphocytes % (Manual) Nucleated RBC % Seg Neutrophils # Seg Neutrophils # Man Lymphocytes # (Manual) Eosinophils # (Manual) INR D-Dimer ABG pH POC ABG pCO2 POC ABG pO2 ABG pO2 ABG HCO3 ABG O2 Saturation ABG Base Excess ABG Hemoglobin ABG Oxyhemoglobin ABG Sodium ABG Potassium ABG Chloride ABG Glucose Oxyhemoglobin Carboxyhemoglobin Sodium Potassium Chloride Carbon Dioxide BUN Creatinine Glucose POC Glucose 136 H 137 H Hemoglobin A1c Lactic Acid Calcium Phosphorus Magnesium 2.80 H Ferritin Total Bilirubin AST ALT Lactate Dehydrogenase C-Reactive Protein Albumin Triglycerides Arterial Blood Glucose Arterial Blood Ionized Calcium Urine Creatinine Coronavirus (PCR) Crossmatch 01/25/21 01/25/21 01/25/21 04:15 05:40 05:40 WBC RBC Hgb Hct MCV 95 H MCH 33 H MCHC 35 H RDW Plt Count Lymph % (Auto) Lymph # (Auto) Seg Neutrophils % Seg Neuts % (Manual) 95.0 H Lymphocytes % (Manual) 3.0 L Nucleated RBC % Seg Neutrophils # Seg Neutrophils # Man 7.8 H Lymphocytes # (Manual) 0.2 L Eosinophils # (Manual) INR D-Dimer ABG pH POC ABG pCO2 POC ABG pO2 63.2 L ABG pO2 ABG HCO3 ABG O2 Saturation ABG Base Excess ABG Hemoglobin ABG Oxyhemoglobin 89.6 L ABG Sodium ABG Potassium ABG Chloride ABG Glucose 165 H Oxyhemoglobin Carboxyhemoglobin 0.3 L Sodium Potassium Chloride Carbon Dioxide BUN 67 H Creatinine 3.4 H Glucose 153 H POC Glucose Hemoglobin A1c Lactic Acid Calcium 7.5 L Phosphorus Magnesium Ferritin Total Bilirubin 1.40 H AST 62 H ALT Lactate Dehydrogenase C-Reactive Protein Albumin 2.6 L Triglycerides Arterial Blood Glucose 165 H Arterial Blood Ionized Calcium 4.3 L Urine Creatinine Coronavirus (PCR) Crossmatch 01/25/21 01/25/21 01/25/21 05:59 12:00 17:17 WBC RBC Hgb Hct MCV MCH MCHC RDW Plt Count Lymph % (Auto) Lymph # (Auto) Seg Neutrophils % Seg Neuts % (Manual) Lymphocytes % (Manual) Nucleated RBC % Seg Neutrophils # Seg Neutrophils # Man Lymphocytes # (Manual) Eosinophils # (Manual) INR D-Dimer ABG pH POC ABG pCO2 POC ABG pO2 ABG pO2 ABG HCO3 ABG O2 Saturation ABG Base Excess ABG Hemoglobin ABG Oxyhemoglobin ABG Sodium ABG Potassium ABG Chloride ABG Glucose Oxyhemoglobin Carboxyhemoglobin Sodium Potassium Chloride Carbon Dioxide BUN Creatinine Glucose POC Glucose 140 H 143 H 149 H Hemoglobin A1c Lactic Acid Calcium Phosphorus Magnesium Ferritin Total Bilirubin AST ALT Lactate Dehydrogenase C-Reactive Protein Albumin Triglycerides Arterial Blood Glucose Arterial Blood Ionized Calcium Urine Creatinine Coronavirus (PCR) Crossmatch 01/25/21 01/26/21 01/26/21 23:41 03:43 05:46 WBC RBC Hgb Hct MCV MCH MCHC RDW Plt Count Lymph % (Auto) Lymph # (Auto) Seg Neutrophils % Seg Neuts % (Manual) Lymphocytes % (Manual) Nucleated RBC % Seg Neutrophils # Seg Neutrophils # Man Lymphocytes # (Manual) Eosinophils # (Manual) INR D-Dimer ABG pH POC ABG pCO2 POC ABG pO2 70.0 L ABG pO2 ABG HCO3 ABG O2 Saturation ABG Base Excess ABG Hemoglobin ABG Oxyhemoglobin 91.9 L ABG Sodium ABG Potassium ABG Chloride 109.0 H ABG Glucose 165 H Oxyhemoglobin Carboxyhemoglobin Sodium Potassium Chloride Carbon Dioxide BUN Creatinine Glucose POC Glucose 132 H 161 H Hemoglobin A1c Lactic Acid Calcium Phosphorus Magnesium Ferritin Total Bilirubin AST ALT Lactate Dehydrogenase C-Reactive Protein Albumin Triglycerides Arterial Blood Glucose 165 H Arterial Blood Ionized Calcium 4.5 L Urine Creatinine Coronavirus (PCR) Crossmatch 01/26/21 01/26/21 01/26/21 05:47 05:47 05:47 WBC RBC Hgb Hct 35.3 L MCV 96 H MCH 33 H MCHC RDW Plt Count Lymph % (Auto) Lymph # (Auto) Seg Neutrophils % Seg Neuts % (Manual) 96.0 H Lymphocytes % (Manual) 2.0 L Nucleated RBC % Seg Neutrophils # Seg Neutrophils # Man Lymphocytes # (Manual) 0.1 L Eosinophils # (Manual) INR D-Dimer > 18346 H ABG pH POC ABG pCO2 POC ABG pO2 ABG pO2 ABG HCO3 ABG O2 Saturation ABG Base Excess ABG Hemoglobin ABG Oxyhemoglobin ABG Sodium ABG Potassium ABG Chloride ABG Glucose Oxyhemoglobin Carboxyhemoglobin Sodium Potassium Chloride Carbon Dioxide BUN 57 H Creatinine 2.2 H Glucose 185 H POC Glucose Hemoglobin A1c Lactic Acid Calcium 8.1 L Phosphorus Magnesium Ferritin Total Bilirubin AST ALT Lactate Dehydrogenase C-Reactive Protein Albumin Triglycerides Arterial Blood Glucose Arterial Blood Ionized Calcium Urine Creatinine Coronavirus (PCR) Crossmatch 01/26/21 01/26/21 01/26/21 05:47 05:47 05:47 WBC RBC Hgb Hct MCV MCH MCHC RDW Plt Count Lymph % (Auto) Lymph # (Auto) Seg Neutrophils % Seg Neuts % (Manual) Lymphocytes % (Manual) Nucleated RBC % Seg Neutrophils # Seg Neutrophils # Man Lymphocytes # (Manual) Eosinophils # (Manual) INR D-Dimer ABG pH POC ABG pCO2 POC ABG pO2 ABG pO2 ABG HCO3 ABG O2 Saturation ABG Base Excess ABG Hemoglobin ABG Oxyhemoglobin ABG Sodium ABG Potassium ABG Chloride ABG Glucose Oxyhemoglobin Carboxyhemoglobin Sodium Potassium Chloride 107.1 H Carbon Dioxide BUN 56 H Creatinine 2.2 H Glucose 188 H POC Glucose Hemoglobin A1c Lactic Acid Calcium 8.0 L Phosphorus Magnesium Ferritin 1178.0 H Total Bilirubin 1.50 H AST ALT Lactate Dehydrogenase 588 H C-Reactive Protein 40.10 H Albumin 2.2 L Triglycerides Arterial Blood Glucose Arterial Blood Ionized Calcium Urine Creatinine Coronavirus (PCR) Crossmatch 01/26/21 01/26/21 01/26/21 11:34 18:17 23:20 WBC RBC Hgb Hct MCV MCH MCHC RDW Plt Count Lymph % (Auto) Lymph # (Auto) Seg Neutrophils % Seg Neuts % (Manual) Lymphocytes % (Manual) Nucleated RBC % Seg Neutrophils # Seg Neutrophils # Man Lymphocytes # (Manual) Eosinophils # (Manual) INR D-Dimer ABG pH POC ABG pCO2 POC ABG pO2 ABG pO2 ABG HCO3 ABG O2 Saturation ABG Base Excess ABG Hemoglobin ABG Oxyhemoglobin ABG Sodium ABG Potassium ABG Chloride ABG Glucose Oxyhemoglobin Carboxyhemoglobin Sodium Potassium Chloride Carbon Dioxide BUN Creatinine Glucose POC Glucose 129 H 205 H 155 H Hemoglobin A1c Lactic Acid Calcium Phosphorus Magnesium Ferritin Total Bilirubin AST ALT Lactate Dehydrogenase C-Reactive Protein Albumin Triglycerides Arterial Blood Glucose Arterial Blood Ionized Calcium Urine Creatinine Coronavirus (PCR) Crossmatch 01/27/21 01/27/21 01/27/21 02:45 05:29 05:29 WBC RBC 3.58 L Hgb 11.7 L Hct 34.9 L MCV 97 H MCH 33 H MCHC RDW Plt Count Lymph % (Auto) Lymph # (Auto) Seg Neutrophils % Seg Neuts % (Manual) 88.0 H Lymphocytes % (Manual) 7.0 L Nucleated RBC % Seg Neutrophils # Seg Neutrophils # Man Lymphocytes # (Manual) 0.5 L Eosinophils # (Manual) INR D-Dimer ABG pH 7.319 L POC ABG pCO2 50.7 H POC ABG pO2 63.0 L ABG pO2 ABG HCO3 ABG O2 Saturation ABG Base Excess ABG Hemoglobin ABG Oxyhemoglobin ABG Sodium 145.2 H ABG Potassium 5.1 H ABG Chloride 114.0 H ABG Glucose 178 H Oxyhemoglobin Carboxyhemoglobin Sodium Potassium Chloride Carbon Dioxide BUN Creatinine Glucose POC Glucose Hemoglobin A1c Lactic Acid Calcium Phosphorus Magnesium 4.00 H Ferritin Total Bilirubin AST ALT Lactate Dehydrogenase C-Reactive Protein Albumin Triglycerides Arterial Blood Glucose 178 H Arterial Blood Ionized Calcium Urine Creatinine Coronavirus (PCR) Crossmatch 01/27/21 01/27/21 01/27/21 05:29 05:29 05:31 WBC RBC Hgb Hct MCV MCH MCHC RDW Plt Count Lymph % (Auto) Lymph # (Auto) Seg Neutrophils % Seg Neuts % (Manual) Lymphocytes % (Manual) Nucleated RBC % Seg Neutrophils # Seg Neutrophils # Man Lymphocytes # (Manual) Eosinophils # (Manual) INR D-Dimer ABG pH POC ABG pCO2 POC ABG pO2 ABG pO2 ABG HCO3 ABG O2 Saturation ABG Base Excess ABG Hemoglobin ABG Oxyhemoglobin ABG Sodium ABG Potassium ABG Chloride ABG Glucose Oxyhemoglobin Carboxyhemoglobin Sodium Potassium 5.2 H Chloride 109.6 H Carbon Dioxide BUN 67 H Creatinine 2.8 H Glucose 195 H POC Glucose 176 H Hemoglobin A1c Lactic Acid Calcium 7.9 L Phosphorus Magnesium Ferritin Total Bilirubin AST ALT Lactate Dehydrogenase C-Reactive Protein Albumin Triglycerides 160 H Arterial Blood Glucose Arterial Blood Ionized Calcium Urine Creatinine Coronavirus (PCR) Crossmatch 01/27/21 01/27/21 01/27/21 11:27 18:08 23:30 WBC RBC Hgb Hct MCV MCH MCHC RDW Plt Count Lymph % (Auto) Lymph # (Auto) Seg Neutrophils % Seg Neuts % (Manual) Lymphocytes % (Manual) Nucleated RBC % Seg Neutrophils # Seg Neutrophils # Man Lymphocytes # (Manual) Eosinophils # (Manual) INR D-Dimer ABG pH POC ABG pCO2 POC ABG pO2 ABG pO2 ABG HCO3 ABG O2 Saturation ABG Base Excess ABG Hemoglobin ABG Oxyhemoglobin ABG Sodium ABG Potassium ABG Chloride ABG Glucose Oxyhemoglobin Carboxyhemoglobin Sodium Potassium Chloride Carbon Dioxide BUN Creatinine Glucose POC Glucose 189 H 212 H 175 H Hemoglobin A1c Lactic Acid Calcium Phosphorus Magnesium Ferritin Total Bilirubin AST ALT Lactate Dehydrogenase C-Reactive Protein Albumin Triglycerides Arterial Blood Glucose Arterial Blood Ionized Calcium Urine Creatinine Coronavirus (PCR) Crossmatch 01/28/21 01/28/21 01/28/21 03:58 04:00 04:00 WBC RBC Hgb Hct MCV MCH MCHC RDW Plt Count Lymph % (Auto) Lymph # (Auto) Seg Neutrophils % Seg Neuts % (Manual) Lymphocytes % (Manual) Nucleated RBC % Seg Neutrophils # Seg Neutrophils # Man Lymphocytes # (Manual) Eosinophils # (Manual) INR D-Dimer > 29637 H ABG pH POC ABG pCO2 POC ABG pO2 52.9 L ABG pO2 ABG HCO3 ABG O2 Saturation ABG Base Excess ABG Hemoglobin ABG Oxyhemoglobin 84.1 L ABG Sodium 148.9 H ABG Potassium ABG Chloride 117.0 H ABG Glucose 194 H Oxyhemoglobin Carboxyhemoglobin Sodium Potassium Chloride Carbon Dioxide BUN Creatinine Glucose POC Glucose Hemoglobin A1c Lactic Acid Calcium Phosphorus Magnesium Ferritin Total Bilirubin AST ALT Lactate Dehydrogenase 679 H C-Reactive Protein 17.10 H Albumin Triglycerides Arterial Blood Glucose 194 H Arterial Blood Ionized Calcium Urine Creatinine Coronavirus (PCR) Crossmatch 01/28/21 01/28/21 01/28/21 04:00 05:00 06:00 WBC RBC 3.59 L Hgb 11.6 L Hct 34.8 L MCV 97 H MCH MCHC RDW Plt Count Lymph % (Auto) Lymph # (Auto) Seg Neutrophils % Seg Neuts % (Manual) 96.0 H Lymphocytes % (Manual) 3.0 L Nucleated RBC % Seg Neutrophils # Seg Neutrophils # Man Lymphocytes # (Manual) 0.2 L Eosinophils # (Manual) INR D-Dimer ABG pH POC ABG pCO2 POC ABG pO2 ABG pO2 ABG HCO3 ABG O2 Saturation ABG Base Excess ABG Hemoglobin ABG Oxyhemoglobin ABG Sodium ABG Potassium ABG Chloride ABG Glucose Oxyhemoglobin Carboxyhemoglobin Sodium Potassium Chloride Carbon Dioxide BUN Creatinine Glucose POC Glucose 159 H Hemoglobin A1c Lactic Acid Calcium Phosphorus Magnesium Ferritin 798.0 H Total Bilirubin AST ALT Lactate Dehydrogenase C-Reactive Protein Albumin Triglycerides Arterial Blood Glucose Arterial Blood Ionized Calcium Urine Creatinine Coronavirus (PCR) Crossmatch 01/28/21 01/28/21 01/28/21 06:00 06:00 08:12 WBC RBC Hgb Hct MCV MCH MCHC RDW Plt Count Lymph % (Auto) Lymph # (Auto) Seg Neutrophils % Seg Neuts % (Manual) Lymphocytes % (Manual) Nucleated RBC % Seg Neutrophils # Seg Neutrophils # Man Lymphocytes # (Manual) Eosinophils # (Manual) INR D-Dimer ABG pH POC ABG pCO2 POC ABG pO2 ABG pO2 ABG HCO3 ABG O2 Saturation ABG Base Excess ABG Hemoglobin ABG Oxyhemoglobin ABG Sodium ABG Potassium ABG Chloride ABG Glucose Oxyhemoglobin Carboxyhemoglobin Sodium Potassium Chloride 111.9 H Carbon Dioxide BUN 59 H Creatinine 2.2 H Glucose 189 H POC Glucose 181 H Hemoglobin A1c Lactic Acid Calcium 8.1 L Phosphorus Magnesium 3.20 H Ferritin Total Bilirubin AST ALT Lactate Dehydrogenase C-Reactive Protein Albumin Triglycerides Arterial Blood Glucose Arterial Blood Ionized Calcium Urine Creatinine Coronavirus (PCR) Crossmatch 01/28/21 01/28/21 01/28/21 12:03 16:43 23:51 WBC RBC Hgb Hct MCV MCH MCHC RDW Plt Count Lymph % (Auto) Lymph # (Auto) Seg Neutrophils % Seg Neuts % (Manual) Lymphocytes % (Manual) Nucleated RBC % Seg Neutrophils # Seg Neutrophils # Man Lymphocytes # (Manual) Eosinophils # (Manual) INR D-Dimer ABG pH POC ABG pCO2 POC ABG pO2 ABG pO2 ABG HCO3 ABG O2 Saturation ABG Base Excess ABG Hemoglobin ABG Oxyhemoglobin ABG Sodium ABG Potassium ABG Chloride ABG Glucose Oxyhemoglobin Carboxyhemoglobin Sodium Potassium Chloride Carbon Dioxide BUN Creatinine Glucose POC Glucose 164 H 198 H 196 H Hemoglobin A1c Lactic Acid Calcium Phosphorus Magnesium Ferritin Total Bilirubin AST ALT Lactate Dehydrogenase C-Reactive Protein Albumin Triglycerides Arterial Blood Glucose Arterial Blood Ionized Calcium Urine Creatinine Coronavirus (PCR) Crossmatch 01/29/21 01/29/21 01/29/21 05:00 05:23 06:00 WBC RBC Hgb Hct MCV MCH MCHC RDW Plt Count Lymph % (Auto) Lymph # (Auto) Seg Neutrophils % Seg Neuts % (Manual) Lymphocytes % (Manual) Nucleated RBC % Seg Neutrophils # Seg Neutrophils # Man Lymphocytes # (Manual) Eosinophils # (Manual) INR D-Dimer ABG pH 7.119 L POC ABG pCO2 87.1 H POC ABG pO2 ABG pO2 ABG HCO3 ABG O2 Saturation ABG Base Excess ABG Hemoglobin ABG Oxyhemoglobin ABG Sodium 152.5 H ABG Potassium 5.7 H ABG Chloride 120.0 H ABG Glucose 217 H Oxyhemoglobin Carboxyhemoglobin Sodium 151 H Potassium 5.9 H D Chloride 117.8 H Carbon Dioxide BUN 54 H Creatinine 2.2 H Glucose 208 H POC Glucose 180 H Hemoglobin A1c Lactic Acid Calcium 7.9 L Phosphorus Magnesium Ferritin Total Bilirubin AST ALT Lactate Dehydrogenase C-Reactive Protein Albumin Triglycerides Arterial Blood Glucose 217 H Arterial Blood Ionized Calcium Urine Creatinine Coronavirus (PCR) Crossmatch 01/29/21 01/29/21 01/29/21 12:29 17:28 18:05 WBC RBC Hgb Hct MCV MCH MCHC RDW Plt Count Lymph % (Auto) Lymph # (Auto) Seg Neutrophils % Seg Neuts % (Manual) Lymphocytes % (Manual) Nucleated RBC % Seg Neutrophils # Seg Neutrophils # Man Lymphocytes # (Manual) Eosinophils # (Manual) INR D-Dimer ABG pH POC ABG pCO2 POC ABG pO2 ABG pO2 ABG HCO3 ABG O2 Saturation ABG Base Excess ABG Hemoglobin ABG Oxyhemoglobin ABG Sodium ABG Potassium ABG Chloride ABG Glucose Oxyhemoglobin Carboxyhemoglobin Sodium 151 H Potassium 5.5 H Chloride 118.2 H Carbon Dioxide BUN 52 H Creatinine 2.2 H Glucose 224 H POC Glucose 181 H 203 H Hemoglobin A1c Lactic Acid Calcium 8.0 L Phosphorus Magnesium Ferritin Total Bilirubin AST ALT Lactate Dehydrogenase C-Reactive Protein Albumin Triglycerides Arterial Blood Glucose Arterial Blood Ionized Calcium Urine Creatinine Coronavirus (PCR) Crossmatch 01/29/21 01/29/21 01/29/21 18:13 23:34 Unknown WBC RBC Hgb Hct MCV 101 H MCH MCHC RDW 15.7 H Plt Count Lymph % (Auto) Lymph # (Auto) Seg Neutrophils % Seg Neuts % (Manual) 95.0 H Lymphocytes % (Manual) 3.0 L Nucleated RBC % Seg Neutrophils # Seg Neutrophils # Man 8.0 H Lymphocytes # (Manual) 0.3 L Eosinophils # (Manual) INR D-Dimer ABG pH 7.223 L POC ABG pCO2 64.8 H POC ABG pO2 63.6 L ABG pO2 ABG HCO3 ABG O2 Saturation ABG Base Excess ABG Hemoglobin ABG Oxyhemoglobin 89.4 L ABG Sodium 152.9 H ABG Potassium 5.3 H ABG Chloride 121.0 H ABG Glucose 227 H Oxyhemoglobin Carboxyhemoglobin Sodium Potassium Chloride Carbon Dioxide BUN Creatinine Glucose POC Glucose 198 H Hemoglobin A1c Lactic Acid Calcium Phosphorus Magnesium Ferritin Total Bilirubin AST ALT Lactate Dehydrogenase C-Reactive Protein Albumin Triglycerides Arterial Blood Glucose 227 H Arterial Blood Ionized Calcium Urine Creatinine Coronavirus (PCR) Crossmatch 01/30/21 01/30/21 01/30/21 04:00 04:00 04:00 WBC RBC Hgb Hct MCV MCH MCHC RDW Plt Count Lymph % (Auto) Lymph # (Auto) Seg Neutrophils % Seg Neuts % (Manual) Lymphocytes % (Manual) Nucleated RBC % Seg Neutrophils # Seg Neutrophils # Man Lymphocytes # (Manual) Eosinophils # (Manual) INR D-Dimer > 63426 H ABG pH POC ABG pCO2 POC ABG pO2 ABG pO2 ABG HCO3 ABG O2 Saturation ABG Base Excess ABG Hemoglobin ABG Oxyhemoglobin ABG Sodium ABG Potassium ABG Chloride ABG Glucose Oxyhemoglobin Carboxyhemoglobin Sodium Potassium Chloride Carbon Dioxide BUN Creatinine Glucose 234 H POC Glucose Hemoglobin A1c Lactic Acid Calcium Phosphorus Magnesium Ferritin 763.9 H Total Bilirubin AST ALT Lactate Dehydrogenase 424 H C-Reactive Protein 23.90 H Albumin Triglycerides Arterial Blood Glucose Arterial Blood Ionized Calcium Urine Creatinine Coronavirus (PCR) Crossmatch 01/30/21 01/30/21 01/30/21 04:24 05:00 05:16 WBC RBC 3.57 L Hgb 11.3 L Hct 35.4 L MCV 99 H MCH MCHC RDW 15.6 H Plt Count Lymph % (Auto) Lymph # (Auto) Seg Neutrophils % Seg Neuts % (Manual) 97.0 H Lymphocytes % (Manual) 1.0 L Nucleated RBC % Seg Neutrophils # Seg Neutrophils # Man 8.6 H Lymphocytes # (Manual) 0.1 L Eosinophils # (Manual) INR D-Dimer ABG pH 7.235 L POC ABG pCO2 69.7 H POC ABG pO2 61.0 L ABG pO2 ABG HCO3 ABG O2 Saturation ABG Base Excess ABG Hemoglobin ABG Oxyhemoglobin 89 L ABG Sodium 154.2 H ABG Potassium 5.4 H ABG Chloride 121.0 H ABG Glucose 247 H Oxyhemoglobin Carboxyhemoglobin Sodium Potassium Chloride Carbon Dioxide BUN Creatinine Glucose POC Glucose 238 H Hemoglobin A1c Lactic Acid Calcium Phosphorus Magnesium Ferritin Total Bilirubin AST ALT Lactate Dehydrogenase C-Reactive Protein Albumin Triglycerides Arterial Blood Glucose 247 H Arterial Blood Ionized Calcium Urine Creatinine Coronavirus (PCR) Crossmatch 01/30/21 01/30/21 01/30/21 06:00 11:28 12:00 WBC RBC Hgb Hct MCV MCH MCHC RDW Plt Count Lymph % (Auto) Lymph # (Auto) Seg Neutrophils % Seg Neuts % (Manual) Lymphocytes % (Manual) Nucleated RBC % Seg Neutrophils # Seg Neutrophils # Man Lymphocytes # (Manual) Eosinophils # (Manual) INR D-Dimer ABG pH POC ABG pCO2 POC ABG pO2 ABG pO2 ABG HCO3 ABG O2 Saturation ABG Base Excess ABG Hemoglobin ABG Oxyhemoglobin ABG Sodium ABG Potassium ABG Chloride ABG Glucose Oxyhemoglobin Carboxyhemoglobin Sodium 152 H Potassium 5.3 H Chloride 120.5 H Carbon Dioxide BUN 50 H Creatinine 2.3 H Glucose 239 H POC Glucose 153 H Hemoglobin A1c Lactic Acid Calcium 8.2 L Phosphorus Magnesium 2.60 H Ferritin Total Bilirubin AST ALT Lactate Dehydrogenase C-Reactive Protein Albumin Triglycerides 293 H Arterial Blood Glucose Arterial Blood Ionized Calcium Urine Creatinine 53.0 H Coronavirus (PCR) Crossmatch 01/30/21 01/30/21 01/31/21 18:49 23:06 04:00 WBC RBC Hgb Hct MCV MCH MCHC RDW Plt Count Lymph % (Auto) Lymph # (Auto) Seg Neutrophils % Seg Neuts % (Manual) Lymphocytes % (Manual) Nucleated RBC % Seg Neutrophils # Seg Neutrophils # Man Lymphocytes # (Manual) Eosinophils # (Manual) INR D-Dimer ABG pH POC ABG pCO2 POC ABG pO2 ABG pO2 ABG HCO3 ABG O2 Saturation ABG Base Excess ABG Hemoglobin ABG Oxyhemoglobin ABG Sodium ABG Potassium ABG Chloride ABG Glucose Oxyhemoglobin Carboxyhemoglobin Sodium 156 H Potassium 5.9 H Chloride 122.6 H Carbon Dioxide BUN 61 H Creatinine 3.2 H Glucose 205 H POC Glucose 220 H 192 H Hemoglobin A1c Lactic Acid Calcium 8.0 L Phosphorus Magnesium Ferritin Total Bilirubin AST ALT Lactate Dehydrogenase C-Reactive Protein Albumin Triglycerides Arterial Blood Glucose Arterial Blood Ionized Calcium Urine Creatinine Coronavirus (PCR) Crossmatch 01/31/21 01/31/21 01/31/21 04:40 05:17 11:33 WBC RBC Hgb Hct MCV MCH MCHC RDW Plt Count Lymph % (Auto) Lymph # (Auto) Seg Neutrophils % Seg Neuts % (Manual) Lymphocytes % (Manual) Nucleated RBC % Seg Neutrophils # Seg Neutrophils # Man Lymphocytes # (Manual) Eosinophils # (Manual) INR D-Dimer ABG pH 7.161 L* POC ABG pCO2 POC ABG pO2 ABG pO2 142.2 H ABG HCO3 28.3 H ABG O2 Saturation ABG Base Excess -3.2 L ABG Hemoglobin ABG Oxyhemoglobin ABG Sodium ABG Potassium ABG Chloride ABG Glucose Oxyhemoglobin Carboxyhemoglobin Sodium Potassium Chloride Carbon Dioxide BUN Creatinine Glucose POC Glucose 200 H 167 H Hemoglobin A1c Lactic Acid Calcium Phosphorus Magnesium Ferritin Total Bilirubin AST ALT Lactate Dehydrogenase C-Reactive Protein Albumin Triglycerides Arterial Blood Glucose Arterial Blood Ionized Calcium Urine Creatinine Coronavirus (PCR) Crossmatch 01/31/21 01/31/21 01/31/21 14:00 17:10 23:24 WBC RBC Hgb Hct MCV MCH MCHC RDW Plt Count Lymph % (Auto) Lymph # (Auto) Seg Neutrophils % Seg Neuts % (Manual) Lymphocytes % (Manual) Nucleated RBC % Seg Neutrophils # Seg Neutrophils # Man Lymphocytes # (Manual) Eosinophils # (Manual) INR D-Dimer ABG pH 7.205 L POC ABG pCO2 POC ABG pO2 ABG pO2 90.9 H ABG HCO3 26.5 H ABG O2 Saturation ABG Base Excess -2.7 L ABG Hemoglobin 12.3 L ABG Oxyhemoglobin ABG Sodium ABG Potassium ABG Chloride ABG Glucose Oxyhemoglobin 93.9 L Carboxyhemoglobin Sodium Potassium Chloride Carbon Dioxide BUN Creatinine Glucose POC Glucose 190 H 203 H Hemoglobin A1c Lactic Acid Calcium Phosphorus Magnesium Ferritin Total Bilirubin AST ALT Lactate Dehydrogenase C-Reactive Protein Albumin Triglycerides Arterial Blood Glucose Arterial Blood Ionized Calcium Urine Creatinine Coronavirus (PCR) Crossmatch 02/01/21 02/01/21 02/01/21 05:15 06:22 10:20 WBC RBC Hgb Hct MCV MCH MCHC RDW Plt Count Lymph % (Auto) Lymph # (Auto) Seg Neutrophils % Seg Neuts % (Manual) Lymphocytes % (Manual) Nucleated RBC % Seg Neutrophils # Seg Neutrophils # Man Lymphocytes # (Manual) Eosinophils # (Manual) INR D-Dimer ABG pH 6.920 L* 7.116 L* POC ABG pCO2 POC ABG pO2 ABG pO2 102.9 H 113.1 H ABG HCO3 28.2 H ABG O2 Saturation 92.9 L ABG Base Excess -6.9 L -5.8 L ABG Hemoglobin 11.6 L 9.5 L ABG Oxyhemoglobin ABG Sodium ABG Potassium ABG Chloride ABG Glucose Oxyhemoglobin 90.5 L 94.6 L Carboxyhemoglobin Sodium Potassium Chloride Carbon Dioxide BUN Creatinine Glucose POC Glucose 221 H Hemoglobin A1c Lactic Acid Calcium Phosphorus Magnesium Ferritin Total Bilirubin AST ALT Lactate Dehydrogenase C-Reactive Protein Albumin Triglycerides Arterial Blood Glucose Arterial Blood Ionized Calcium Urine Creatinine Coronavirus (PCR) Crossmatch 02/01/21 02/01/21 02/01/21 11:12 12:35 16:00 WBC RBC Hgb Hct MCV MCH MCHC RDW Plt Count Lymph % (Auto) Lymph # (Auto) Seg Neutrophils % Seg Neuts % (Manual) Lymphocytes % (Manual) Nucleated RBC % Seg Neutrophils # Seg Neutrophils # Man Lymphocytes # (Manual) Eosinophils # (Manual) INR D-Dimer ABG pH 7.155 L* POC ABG pCO2 POC ABG pO2 ABG pO2 94.6 H ABG HCO3 ABG O2 Saturation ABG Base Excess -6.5 L ABG Hemoglobin 13.1 L ABG Oxyhemoglobin ABG Sodium ABG Potassium ABG Chloride ABG Glucose Oxyhemoglobin 93.7 L Carboxyhemoglobin Sodium 155 H Potassium 5.1 H Chloride 120.5 H Carbon Dioxide BUN 90 H Creatinine 6.1 H D Glucose 238 H POC Glucose 207 H Hemoglobin A1c Lactic Acid Calcium 7.4 L Phosphorus Magnesium Ferritin Total Bilirubin AST ALT Lactate Dehydrogenase C-Reactive Protein Albumin Triglycerides Arterial Blood Glucose Arterial Blood Ionized Calcium Urine Creatinine Coronavirus (PCR) Crossmatch 02/01/21 02/01/21 02/02/21 17:10 23:47 04:04 WBC RBC 3.02 L Hgb 9.8 L Hct 30.7 L MCV 102 H MCH MCHC RDW 15.6 H Plt Count Lymph % (Auto) 4.2 L Lymph # (Auto) 0.3 L Seg Neutrophils % Seg Neuts % (Manual) Lymphocytes % (Manual) Nucleated RBC % Seg Neutrophils # Seg Neutrophils # Man Lymphocytes # (Manual) Eosinophils # (Manual) INR D-Dimer ABG pH POC ABG pCO2 POC ABG pO2 ABG pO2 ABG HCO3 ABG O2 Saturation ABG Base Excess ABG Hemoglobin ABG Oxyhemoglobin ABG Sodium ABG Potassium ABG Chloride ABG Glucose Oxyhemoglobin Carboxyhemoglobin Sodium Potassium Chloride Carbon Dioxide BUN Creatinine Glucose POC Glucose 238 H 235 H Hemoglobin A1c Lactic Acid Calcium Phosphorus Magnesium Ferritin Total Bilirubin AST ALT Lactate Dehydrogenase C-Reactive Protein Albumin Triglycerides Arterial Blood Glucose Arterial Blood Ionized Calcium Urine Creatinine Coronavirus (PCR) Crossmatch 02/02/21 02/02/21 02/02/21 05:18 05:35 11:28 WBC RBC Hgb Hct MCV MCH MCHC RDW Plt Count Lymph % (Auto) Lymph # (Auto) Seg Neutrophils % Seg Neuts % (Manual) Lymphocytes % (Manual) Nucleated RBC % Seg Neutrophils # Seg Neutrophils # Man Lymphocytes # (Manual) Eosinophils # (Manual) INR D-Dimer ABG pH 7.195 L* POC ABG pCO2 POC ABG pO2 ABG pO2 72.5 L ABG HCO3 ABG O2 Saturation 91.2 L ABG Base Excess -5.3 L ABG Hemoglobin 6.0 L ABG Oxyhemoglobin ABG Sodium ABG Potassium ABG Chloride ABG Glucose Oxyhemoglobin 89.1 L Carboxyhemoglobin Sodium Potassium Chloride 110.4 H Carbon Dioxide BUN 92 H Creatinine Glucose POC Glucose 239 H Hemoglobin A1c Lactic Acid Calcium Phosphorus Magnesium Ferritin Total Bilirubin AST ALT Lactate Dehydrogenase C-Reactive Protein Albumin Triglycerides Arterial Blood Glucose Arterial Blood Ionized Calcium Urine Creatinine Coronavirus (PCR) Crossmatch 02/02/21 02/02/21 02/02/21 11:53 16:00 18:04 WBC RBC Hgb Hct MCV MCH MCHC RDW Plt Count Lymph % (Auto) Lymph # (Auto) Seg Neutrophils % Seg Neuts % (Manual) Lymphocytes % (Manual) Nucleated RBC % Seg Neutrophils # Seg Neutrophils # Man Lymphocytes # (Manual) Eosinophils # (Manual) INR D-Dimer ABG pH POC ABG pCO2 POC ABG pO2 ABG pO2 ABG HCO3 ABG O2 Saturation ABG Base Excess ABG Hemoglobin ABG Oxyhemoglobin ABG Sodium ABG Potassium ABG Chloride ABG Glucose Oxyhemoglobin Carboxyhemoglobin Sodium Potassium Chloride Carbon Dioxide BUN Creatinine Glucose POC Glucose 248 H 199 H Hemoglobin A1c 6.3 H Lactic Acid Calcium Phosphorus Magnesium Ferritin Total Bilirubin AST ALT Lactate Dehydrogenase C-Reactive Protein Albumin Triglycerides Arterial Blood Glucose Arterial Blood Ionized Calcium Urine Creatinine Coronavirus (PCR) Crossmatch 02/02/21 02/03/21 02/03/21 23:31 03:12 04:10 WBC RBC 3.06 L Hgb 9.7 L Hct 30.4 L MCV 99 H MCH MCHC RDW 15.3 H Plt Count Lymph % (Auto) 6.1 L Lymph # (Auto) 0.5 L Seg Neutrophils % 86.1 H Seg Neuts % (Manual) Lymphocytes % (Manual) Nucleated RBC % Seg Neutrophils # Seg Neutrophils # Man Lymphocytes # (Manual) Eosinophils # (Manual) INR D-Dimer ABG pH 7.199 L POC ABG pCO2 48.3 H POC ABG pO2 68.3 L ABG pO2 ABG HCO3 ABG O2 Saturation ABG Base Excess ABG Hemoglobin 10.2 L ABG Oxyhemoglobin 89.2 L ABG Sodium 155.0 H ABG Potassium 4.6 H ABG Chloride 121.0 H ABG Glucose 166 H Oxyhemoglobin Carboxyhemoglobin 0.3 L Sodium Potassium Chloride Carbon Dioxide BUN Creatinine Glucose POC Glucose 200 H Hemoglobin A1c Lactic Acid Calcium Phosphorus Magnesium Ferritin Total Bilirubin AST ALT Lactate Dehydrogenase C-Reactive Protein Albumin Triglycerides Arterial Blood Glucose 166 H Arterial Blood Ionized Calcium 4.1 L Urine Creatinine Coronavirus (PCR) Crossmatch 02/03/21 02/03/21 02/03/21 04:10 05:34 11:51 WBC RBC Hgb Hct MCV MCH MCHC RDW Plt Count Lymph % (Auto) Lymph # (Auto) Seg Neutrophils % Seg Neuts % (Manual) Lymphocytes % (Manual) Nucleated RBC % Seg Neutrophils # Seg Neutrophils # Man Lymphocytes # (Manual) Eosinophils # (Manual) INR D-Dimer ABG pH POC ABG pCO2 POC ABG pO2 ABG pO2 ABG HCO3 ABG O2 Saturation ABG Base Excess ABG Hemoglobin ABG Oxyhemoglobin ABG Sodium ABG Potassium ABG Chloride ABG Glucose Oxyhemoglobin Carboxyhemoglobin Sodium 154 H D Potassium Chloride 116.7 H Carbon Dioxide 20 L BUN 130 H Creatinine 9.2 H D Glucose 160 H POC Glucose 130 H 154 H Hemoglobin A1c Lactic Acid Calcium 6.7 L Phosphorus 8.60 H Magnesium Ferritin Total Bilirubin AST ALT Lactate Dehydrogenase C-Reactive Protein Albumin Triglycerides Arterial Blood Glucose Arterial Blood Ionized Calcium Urine Creatinine Coronavirus (PCR) Crossmatch 02/03/21 02/03/21 02/04/21 16:49 23:22 03:48 WBC RBC Hgb Hct MCV MCH MCHC RDW Plt Count Lymph % (Auto) Lymph # (Auto) Seg Neutrophils % Seg Neuts % (Manual) Lymphocytes % (Manual) Nucleated RBC % Seg Neutrophils # Seg Neutrophils # Man Lymphocytes # (Manual) Eosinophils # (Manual) INR D-Dimer ABG pH 7.201 L POC ABG pCO2 54.5 H POC ABG pO2 74.0 L ABG pO2 ABG HCO3 ABG O2 Saturation ABG Base Excess ABG Hemoglobin 9.7 L ABG Oxyhemoglobin 91.1 L ABG Sodium 146.2 H ABG Potassium ABG Chloride 114.0 H ABG Glucose 155 H Oxyhemoglobin Carboxyhemoglobin Sodium Potassium Chloride Carbon Dioxide BUN Creatinine Glucose POC Glucose 164 H 152 H Hemoglobin A1c Lactic Acid Calcium Phosphorus Magnesium Ferritin Total Bilirubin AST ALT Lactate Dehydrogenase C-Reactive Protein Albumin Triglycerides Arterial Blood Glucose 155 H Arterial Blood Ionized Calcium 3.9 L Urine Creatinine Coronavirus (PCR) Crossmatch 02/04/21 02/04/21 02/04/21 04:45 04:45 04:45 WBC RBC 2.75 L Hgb 9.1 L Hct 26.9 L MCV 98 H MCH 33 H MCHC RDW Plt Count Lymph % (Auto) 6.8 L Lymph # (Auto) 0.5 L Seg Neutrophils % 87.2 H Seg Neuts % (Manual) Lymphocytes % (Manual) Nucleated RBC % Seg Neutrophils # Seg Neutrophils # Man Lymphocytes # (Manual) Eosinophils # (Manual) INR D-Dimer ABG pH POC ABG pCO2 POC ABG pO2 ABG pO2 ABG HCO3 ABG O2 Saturation ABG Base Excess ABG Hemoglobin ABG Oxyhemoglobin ABG Sodium ABG Potassium ABG Chloride ABG Glucose Oxyhemoglobin Carboxyhemoglobin Sodium 149 H Potassium Chloride 111.5 H Carbon Dioxide BUN 99 H Creatinine 8.5 H Glucose 139 H POC Glucose Hemoglobin A1c Lactic Acid Calcium 6.8 L Phosphorus 8.40 H Magnesium Ferritin Total Bilirubin AST ALT Lactate Dehydrogenase C-Reactive Protein Albumin Triglycerides Arterial Blood Glucose Arterial Blood Ionized Calcium Urine Creatinine Coronavirus (PCR) Crossmatch 02/04/21 02/04/21 02/04/21 06:05 11:44 18:00 WBC RBC Hgb Hct MCV MCH MCHC RDW Plt Count Lymph % (Auto) Lymph # (Auto) Seg Neutrophils % Seg Neuts % (Manual) Lymphocytes % (Manual) Nucleated RBC % Seg Neutrophils # Seg Neutrophils # Man Lymphocytes # (Manual) Eosinophils # (Manual) INR D-Dimer ABG pH POC ABG pCO2 POC ABG pO2 ABG pO2 ABG HCO3 ABG O2 Saturation ABG Base Excess ABG Hemoglobin ABG Oxyhemoglobin ABG Sodium ABG Potassium ABG Chloride ABG Glucose Oxyhemoglobin Carboxyhemoglobin Sodium Potassium Chloride Carbon Dioxide BUN Creatinine Glucose POC Glucose 138 H 129 H 163 H Hemoglobin A1c Lactic Acid Calcium Phosphorus Magnesium Ferritin Total Bilirubin AST ALT Lactate Dehydrogenase C-Reactive Protein Albumin Triglycerides Arterial Blood Glucose Arterial Blood Ionized Calcium Urine Creatinine Coronavirus (PCR) Crossmatch 02/04/21 02/05/21 02/05/21 23:48 01:50 01:50 WBC RBC 2.43 L Hgb 8.3 L Hct 23.6 L MCV 97 H MCH 34 H MCHC 35 H RDW Plt Count 137 L Lymph % (Auto) 8.4 L Lymph # (Auto) 0.6 L Seg Neutrophils % 86.1 H Seg Neuts % (Manual) Lymphocytes % (Manual) Nucleated RBC % Seg Neutrophils # Seg Neutrophils # Man Lymphocytes # (Manual) Eosinophils # (Manual) INR D-Dimer ABG pH POC ABG pCO2 POC ABG pO2 ABG pO2 ABG HCO3 ABG O2 Saturation ABG Base Excess ABG Hemoglobin ABG Oxyhemoglobin ABG Sodium ABG Potassium ABG Chloride ABG Glucose Oxyhemoglobin Carboxyhemoglobin Sodium Potassium Chloride Carbon Dioxide BUN Creatinine Glucose POC Glucose 157 H Hemoglobin A1c Lactic Acid Calcium Phosphorus 5.60 H D Magnesium Ferritin Total Bilirubin AST ALT Lactate Dehydrogenase C-Reactive Protein Albumin Triglycerides Arterial Blood Glucose Arterial Blood Ionized Calcium Urine Creatinine Coronavirus (PCR) Crossmatch 02/05/21 02/05/21 02/05/21 03:44 05:27 09:15 WBC RBC Hgb Hct MCV MCH MCHC RDW Plt Count Lymph % (Auto) Lymph # (Auto) Seg Neutrophils % Seg Neuts % (Manual) Lymphocytes % (Manual) Nucleated RBC % Seg Neutrophils # Seg Neutrophils # Man Lymphocytes # (Manual) Eosinophils # (Manual) INR D-Dimer ABG pH 7.202 L POC ABG pCO2 63.7 H POC ABG pO2 69.0 L ABG pO2 ABG HCO3 ABG O2 Saturation ABG Base Excess ABG Hemoglobin 9.4 L ABG Oxyhemoglobin ABG Sodium ABG Potassium ABG Chloride 108.0 H ABG Glucose 186 H Oxyhemoglobin Carboxyhemoglobin Sodium Potassium Chloride Carbon Dioxide BUN 78 H Creatinine 8.0 H Glucose 163 H POC Glucose 157 H Hemoglobin A1c Lactic Acid Calcium 6.3 L Phosphorus Magnesium Ferritin Total Bilirubin AST ALT Lactate Dehydrogenase C-Reactive Protein Albumin Triglycerides Arterial Blood Glucose 186 H Arterial Blood Ionized Calcium 3.9 L Urine Creatinine Coronavirus (PCR) Crossmatch 02/05/21 02/05/21 02/05/21 11:47 17:39 23:40 WBC RBC Hgb Hct MCV MCH MCHC RDW Plt Count Lymph % (Auto) Lymph # (Auto) Seg Neutrophils % Seg Neuts % (Manual) Lymphocytes % (Manual) Nucleated RBC % Seg Neutrophils # Seg Neutrophils # Man Lymphocytes # (Manual) Eosinophils # (Manual) INR D-Dimer ABG pH 7.273 L POC ABG pCO2 62.1 H POC ABG pO2 72.0 L ABG pO2 ABG HCO3 ABG O2 Saturation ABG Base Excess ABG Hemoglobin 9.1 L ABG Oxyhemoglobin 91.3 L ABG Sodium ABG Potassium 3.1 L ABG Chloride ABG Glucose 125 H Oxyhemoglobin Carboxyhemoglobin Sodium Potassium Chloride Carbon Dioxide BUN Creatinine Glucose POC Glucose 126 H 126 H Hemoglobin A1c Lactic Acid Calcium Phosphorus Magnesium Ferritin Total Bilirubin AST ALT Lactate Dehydrogenase C-Reactive Protein Albumin Triglycerides Arterial Blood Glucose 125 H Arterial Blood Ionized Calcium 4.0 L Urine Creatinine Coronavirus (PCR) Crossmatch 02/06/21 02/06/21 02/06/21 04:30 04:57 09:45 WBC RBC Hgb Hct MCV MCH MCHC RDW Plt Count Lymph % (Auto) Lymph # (Auto) Seg Neutrophils % Seg Neuts % (Manual) Lymphocytes % (Manual) Nucleated RBC % Seg Neutrophils # Seg Neutrophils # Man Lymphocytes # (Manual) Eosinophils # (Manual) INR D-Dimer ABG pH 7.159 L 7.138 L* POC ABG pCO2 76.3 H POC ABG pO2 66.9 L ABG pO2 ABG HCO3 ABG O2 Saturation 93.4 L ABG Base Excess -6.0 L ABG Hemoglobin 11.2 L 11.7 L ABG Oxyhemoglobin 88.2 L ABG Sodium ABG Potassium ABG Chloride ABG Glucose 134 H Oxyhemoglobin 91.2 L Carboxyhemoglobin Sodium Potassium Chloride Carbon Dioxide BUN Creatinine Glucose POC Glucose 124 H Hemoglobin A1c Lactic Acid Calcium Phosphorus Magnesium Ferritin Total Bilirubin AST ALT Lactate Dehydrogenase C-Reactive Protein Albumin Triglycerides Arterial Blood Glucose 134 H Arterial Blood Ionized Calcium 3.9 L Urine Creatinine Coronavirus (PCR) Crossmatch 02/06/21 02/06/21 02/06/21 11:11 17:00 17:00 WBC RBC Hgb Hct MCV MCH MCHC RDW Plt Count Lymph % (Auto) Lymph # (Auto) Seg Neutrophils % Seg Neuts % (Manual) Lymphocytes % (Manual) Nucleated RBC % Seg Neutrophils # Seg Neutrophils # Man Lymphocytes # (Manual) Eosinophils # (Manual) INR D-Dimer ABG pH 7.158 L* POC ABG pCO2 POC ABG pO2 ABG pO2 109.8 H ABG HCO3 28.7 H ABG O2 Saturation ABG Base Excess -2.5 L ABG Hemoglobin ABG Oxyhemoglobin ABG Sodium ABG Potassium ABG Chloride ABG Glucose Oxyhemoglobin 94.5 L Carboxyhemoglobin Sodium Potassium Chloride Carbon Dioxide BUN Creatinine Glucose POC Glucose 120 H Hemoglobin A1c Lactic Acid Calcium Phosphorus Magnesium Ferritin Total Bilirubin AST ALT Lactate Dehydrogenase C-Reactive Protein Albumin Triglycerides 503 H Arterial Blood Glucose Arterial Blood Ionized Calcium Urine Creatinine Coronavirus (PCR) Crossmatch 02/06/21 02/06/21 02/06/21 17:28 20:16 Unknown WBC 13.5 H RBC 2.98 L Hgb 9.3 L Hct 28.6 L MCV 96 H MCH MCHC RDW Plt Count Lymph % (Auto) Lymph # (Auto) Seg Neutrophils % Seg Neuts % (Manual) 87.0 H Lymphocytes % (Manual) 7.0 L Nucleated RBC % Seg Neutrophils # Seg Neutrophils # Man 11.7 H Lymphocytes # (Manual) 0.9 L Eosinophils # (Manual) 0.5 H INR D-Dimer ABG pH POC ABG pCO2 POC ABG pO2 ABG pO2 ABG HCO3 ABG O2 Saturation ABG Base Excess ABG Hemoglobin ABG Oxyhemoglobin ABG Sodium ABG Potassium ABG Chloride ABG Glucose Oxyhemoglobin Carboxyhemoglobin Sodium Potassium Chloride Carbon Dioxide BUN Creatinine Glucose POC Glucose 147 H 164 H Hemoglobin A1c Lactic Acid Calcium Phosphorus Magnesium Ferritin Total Bilirubin AST ALT Lactate Dehydrogenase C-Reactive Protein Albumin Triglycerides Arterial Blood Glucose Arterial Blood Ionized Calcium Urine Creatinine Coronavirus (PCR) Crossmatch 02/06/21 02/07/21 02/07/21 Unknown 01:21 04:00 WBC 12.0 H RBC 2.61 L Hgb 8.2 L Hct 24.5 L MCV MCH MCHC RDW Plt Count Lymph % (Auto) 8.9 L Lymph # (Auto) 1.1 L Seg Neutrophils % 86.3 H Seg Neuts % (Manual) Lymphocytes % (Manual) Nucleated RBC % Seg Neutrophils # 10.3 H Seg Neutrophils # Man Lymphocytes # (Manual) Eosinophils # (Manual) INR D-Dimer ABG pH POC ABG pCO2 POC ABG pO2 ABG pO2 ABG HCO3 ABG O2 Saturation ABG Base Excess ABG Hemoglobin ABG Oxyhemoglobin ABG Sodium ABG Potassium ABG Chloride ABG Glucose Oxyhemoglobin Carboxyhemoglobin Sodium Potassium 3.5 L Chloride Carbon Dioxide BUN 58 H Creatinine 6.6 H Glucose 107 H POC Glucose 173 H Hemoglobin A1c Lactic Acid Calcium 6.7 L Phosphorus 8.00 H D Magnesium Ferritin Total Bilirubin AST ALT Lactate Dehydrogenase C-Reactive Protein Albumin Triglycerides Arterial Blood Glucose Arterial Blood Ionized Calcium Urine Creatinine Coronavirus (PCR) Crossmatch 02/07/21 02/07/21 02/07/21 04:00 04:45 11:49 WBC RBC Hgb Hct MCV MCH MCHC RDW Plt Count Lymph % (Auto) Lymph # (Auto) Seg Neutrophils % Seg Neuts % (Manual) Lymphocytes % (Manual) Nucleated RBC % Seg Neutrophils # Seg Neutrophils # Man Lymphocytes # (Manual) Eosinophils # (Manual) INR D-Dimer ABG pH 7.287 L POC ABG pCO2 64.8 H POC ABG pO2 74.0 L ABG pO2 ABG HCO3 ABG O2 Saturation ABG Base Excess ABG Hemoglobin 9.1 L ABG Oxyhemoglobin 92.0 L ABG Sodium ABG Potassium 2.8 L ABG Chloride ABG Glucose 226 H Oxyhemoglobin Carboxyhemoglobin Sodium Potassium Chloride Carbon Dioxide BUN Creatinine Glucose POC Glucose 170 H Hemoglobin A1c Lactic Acid Calcium Phosphorus 5.50 H D Magnesium Ferritin Total Bilirubin AST ALT Lactate Dehydrogenase C-Reactive Protein Albumin Triglycerides Arterial Blood Glucose 226 H Arterial Blood Ionized Calcium 3.7 L Urine Creatinine Coronavirus (PCR) Crossmatch 02/07/21 02/07/21 02/07/21 13:48 17:45 23:02 WBC RBC Hgb Hct MCV MCH MCHC RDW Plt Count Lymph % (Auto) Lymph # (Auto) Seg Neutrophils % Seg Neuts % (Manual) Lymphocytes % (Manual) Nucleated RBC % Seg Neutrophils # Seg Neutrophils # Man Lymphocytes # (Manual) Eosinophils # (Manual) INR D-Dimer ABG pH POC ABG pCO2 POC ABG pO2 ABG pO2 ABG HCO3 ABG O2 Saturation ABG Base Excess ABG Hemoglobin ABG Oxyhemoglobin ABG Sodium ABG Potassium ABG Chloride ABG Glucose Oxyhemoglobin Carboxyhemoglobin Sodium 136 L Potassium 2.6 L* D Chloride 95.1 L Carbon Dioxide 33 H D BUN 30 H Creatinine 3.6 H Glucose 184 H POC Glucose 172 H 172 H Hemoglobin A1c Lactic Acid Calcium 6.9 L Phosphorus Magnesium Ferritin Total Bilirubin AST ALT Lactate Dehydrogenase C-Reactive Protein Albumin Triglycerides Arterial Blood Glucose Arterial Blood Ionized Calcium Urine Creatinine Coronavirus (PCR) Crossmatch 02/08/21 02/08/21 02/08/21 05:22 06:00 06:00 WBC RBC 2.21 L Hgb 7.2 L Hct 21.0 L MCV 95 H MCH MCHC RDW Plt Count Lymph % (Auto) Lymph # (Auto) Seg Neutrophils % Seg Neuts % (Manual) 87.0 H Lymphocytes % (Manual) 4.0 L Nucleated RBC % Seg Neutrophils # Seg Neutrophils # Man 8.5 H Lymphocytes # (Manual) 0.4 L Eosinophils # (Manual) INR D-Dimer ABG pH POC ABG pCO2 POC ABG pO2 ABG pO2 ABG HCO3 ABG O2 Saturation ABG Base Excess ABG Hemoglobin ABG Oxyhemoglobin ABG Sodium ABG Potassium ABG Chloride ABG Glucose Oxyhemoglobin Carboxyhemoglobin Sodium 136 L Potassium 2.4 L* Chloride 93.1 L Carbon Dioxide 36 H BUN 43 H Creatinine 5.4 H Glucose 167 H POC Glucose 162 H Hemoglobin A1c Lactic Acid Calcium 6.3 L Phosphorus Magnesium Ferritin Total Bilirubin AST ALT Lactate Dehydrogenase C-Reactive Protein Albumin Triglycerides Arterial Blood Glucose Arterial Blood Ionized Calcium Urine Creatinine Coronavirus (PCR) Crossmatch 02/08/21 02/08/21 02/08/21 11:44 17:53 18:56 WBC RBC Hgb Hct MCV MCH MCHC RDW Plt Count Lymph % (Auto) Lymph # (Auto) Seg Neutrophils % Seg Neuts % (Manual) Lymphocytes % (Manual) Nucleated RBC % Seg Neutrophils # Seg Neutrophils # Man Lymphocytes # (Manual) Eosinophils # (Manual) INR D-Dimer ABG pH POC ABG pCO2 POC ABG pO2 ABG pO2 ABG HCO3 ABG O2 Saturation ABG Base Excess ABG Hemoglobin ABG Oxyhemoglobin ABG Sodium ABG Potassium ABG Chloride ABG Glucose Oxyhemoglobin Carboxyhemoglobin Sodium Potassium 2.9 L* D Chloride Carbon Dioxide BUN Creatinine Glucose POC Glucose 164 H 154 H Hemoglobin A1c Lactic Acid Calcium Phosphorus Magnesium Ferritin Total Bilirubin AST ALT Lactate Dehydrogenase C-Reactive Protein Albumin Triglycerides Arterial Blood Glucose Arterial Blood Ionized Calcium Urine Creatinine Coronavirus (PCR) Crossmatch 02/08/21 02/08/21 02/09/21 23:24 23:58 03:21 WBC RBC Hgb Hct MCV MCH MCHC RDW Plt Count Lymph % (Auto) Lymph # (Auto) Seg Neutrophils % Seg Neuts % (Manual) Lymphocytes % (Manual) Nucleated RBC % Seg Neutrophils # Seg Neutrophils # Man Lymphocytes # (Manual) Eosinophils # (Manual) INR D-Dimer ABG pH 7.319 L POC ABG pCO2 63.3 H 68.3 H POC ABG pO2 71.2 L 76.5 L ABG pO2 ABG HCO3 ABG O2 Saturation ABG Base Excess ABG Hemoglobin 8.2 L 7.0 L ABG Oxyhemoglobin 91.8 L 92.2 L ABG Sodium 134.6 L 133.0 L ABG Potassium 2.3 L 3.1 L ABG Chloride 96.0 L 95.0 L ABG Glucose 184 H 154 H Oxyhemoglobin Carboxyhemoglobin Sodium Potassium Chloride Carbon Dioxide BUN Creatinine Glucose POC Glucose 152 H Hemoglobin A1c Lactic Acid Calcium Phosphorus Magnesium Ferritin Total Bilirubin AST ALT Lactate Dehydrogenase C-Reactive Protein Albumin Triglycerides Arterial Blood Glucose 184 H 154 H Arterial Blood Ionized Calcium 3.6 L 3.5 L Urine Creatinine Coronavirus (PCR) Crossmatch 02/09/21 02/09/21 02/09/21 05:10 05:10 06:04 WBC RBC 2.14 L Hgb 7.0 L Hct 20.5 L MCV 96 H MCH 33 H MCHC RDW Plt Count Lymph % (Auto) Lymph # (Auto) Seg Neutrophils % Seg Neuts % (Manual) 82.0 H Lymphocytes % (Manual) 9.0 L Nucleated RBC % 1.0 H Seg Neutrophils # Seg Neutrophils # Man 8.9 H Lymphocytes # (Manual) 1.0 L Eosinophils # (Manual) INR D-Dimer ABG pH POC ABG pCO2 POC ABG pO2 ABG pO2 ABG HCO3 ABG O2 Saturation ABG Base Excess ABG Hemoglobin ABG Oxyhemoglobin ABG Sodium ABG Potassium ABG Chloride ABG Glucose Oxyhemoglobin Carboxyhemoglobin Sodium 135 L Potassium 3.2 L Chloride 91.0 L Carbon Dioxide 32 H BUN 54 H Creatinine 6.6 H Glucose 163 H POC Glucose 149 H Hemoglobin A1c Lactic Acid Calcium 6.2 L Phosphorus Magnesium Ferritin Total Bilirubin AST ALT Lactate Dehydrogenase C-Reactive Protein Albumin Triglycerides Arterial Blood Glucose Arterial Blood Ionized Calcium Urine Creatinine Coronavirus (PCR) Crossmatch 02/09/21 02/09/21 02/09/21 12:02 13:32 13:40 WBC RBC Hgb Hct MCV MCH MCHC RDW Plt Count Lymph % (Auto) Lymph # (Auto) Seg Neutrophils % Seg Neuts % (Manual) Lymphocytes % (Manual) Nucleated RBC % Seg Neutrophils # Seg Neutrophils # Man Lymphocytes # (Manual) Eosinophils # (Manual) INR D-Dimer ABG pH POC ABG pCO2 POC ABG pO2 ABG pO2 ABG HCO3 ABG O2 Saturation ABG Base Excess ABG Hemoglobin ABG Oxyhemoglobin ABG Sodium ABG Potassium ABG Chloride ABG Glucose Oxyhemoglobin Carboxyhemoglobin Sodium Potassium Chloride Carbon Dioxide BUN Creatinine Glucose POC Glucose 147 H Hemoglobin A1c Lactic Acid Calcium Phosphorus Magnesium Ferritin Total Bilirubin AST ALT Lactate Dehydrogenase C-Reactive Protein Albumin Triglycerides 250 H Arterial Blood Glucose Arterial Blood Ionized Calcium Urine Creatinine Coronavirus (PCR) Crossmatch See Detail 02/09/21 02/09/21 02/10/21 18:06 23:42 04:00 WBC RBC Hgb Hct MCV MCH MCHC RDW Plt Count Lymph % (Auto) Lymph # (Auto) Seg Neutrophils % Seg Neuts % (Manual) Lymphocytes % (Manual) Nucleated RBC % Seg Neutrophils # Seg Neutrophils # Man Lymphocytes # (Manual) Eosinophils # (Manual) INR D-Dimer ABG pH POC ABG pCO2 65.8 H POC ABG pO2 68.0 L ABG pO2 ABG HCO3 ABG O2 Saturation ABG Base Excess ABG Hemoglobin 8.3 L ABG Oxyhemoglobin ABG Sodium 132.4 L ABG Potassium 2.9 L ABG Chloride 92.0 L ABG Glucose 174 H Oxyhemoglobin Carboxyhemoglobin Sodium Potassium Chloride Carbon Dioxide BUN Creatinine Glucose POC Glucose 152 H 147 H Hemoglobin A1c Lactic Acid Calcium Phosphorus Magnesium Ferritin Total Bilirubin AST ALT Lactate Dehydrogenase C-Reactive Protein Albumin Triglycerides Arterial Blood Glucose 174 H Arterial Blood Ionized Calcium 3.4 L Urine Creatinine Coronavirus (PCR) Crossmatch 02/10/21 02/10/21 02/10/21 05:32 11:29 14:08 WBC 12.5 H RBC 2.14 L Hgb 6.6 L Hct 20.2 L MCV MCH MCHC RDW Plt Count Lymph % (Auto) Lymph # (Auto) Seg Neutrophils % Seg Neuts % (Manual) Lymphocytes % (Manual) Nucleated RBC % Seg Neutrophils # Seg Neutrophils # Man Lymphocytes # (Manual) Eosinophils # (Manual) INR D-Dimer ABG pH POC ABG pCO2 POC ABG pO2 ABG pO2 ABG HCO3 ABG O2 Saturation ABG Base Excess ABG Hemoglobin ABG Oxyhemoglobin ABG Sodium ABG Potassium ABG Chloride ABG Glucose Oxyhemoglobin Carboxyhemoglobin Sodium Potassium Chloride Carbon Dioxide BUN Creatinine Glucose POC Glucose 167 H 147 H Hemoglobin A1c Lactic Acid Calcium Phosphorus Magnesium Ferritin Total Bilirubin AST ALT Lactate Dehydrogenase C-Reactive Protein Albumin Triglycerides Arterial Blood Glucose Arterial Blood Ionized Calcium Urine Creatinine Coronavirus (PCR) Crossmatch 02/10/21 02/10/21 02/10/21 14:08 18:11 22:32 WBC RBC Hgb 6.4 L Hct 19.1 L* MCV MCH MCHC RDW Plt Count Lymph % (Auto) Lymph # (Auto) Seg Neutrophils % Seg Neuts % (Manual) Lymphocytes % (Manual) Nucleated RBC % Seg Neutrophils # Seg Neutrophils # Man Lymphocytes # (Manual) Eosinophils # (Manual) INR D-Dimer ABG pH POC ABG pCO2 POC ABG pO2 ABG pO2 ABG HCO3 ABG O2 Saturation ABG Base Excess ABG Hemoglobin ABG Oxyhemoglobin ABG Sodium ABG Potassium ABG Chloride ABG Glucose Oxyhemoglobin Carboxyhemoglobin Sodium 136 L Potassium 2.9 L* Chloride 90.2 L Carbon Dioxide 33 H BUN 42 H Creatinine 7.5 H Glucose 155 H POC Glucose 173 H Hemoglobin A1c Lactic Acid Calcium 6.1 L Phosphorus Magnesium Ferritin Total Bilirubin AST ALT Lactate Dehydrogenase C-Reactive Protein Albumin Triglycerides Arterial Blood Glucose Arterial Blood Ionized Calcium Urine Creatinine Coronavirus (PCR) Crossmatch 02/11/21 02/11/21 02/11/21 00:28 04:05 04:30 WBC RBC Hgb Hct MCV MCH MCHC RDW Plt Count Lymph % (Auto) Lymph # (Auto) Seg Neutrophils % Seg Neuts % (Manual) Lymphocytes % (Manual) Nucleated RBC % Seg Neutrophils # Seg Neutrophils # Man Lymphocytes # (Manual) Eosinophils # (Manual) INR D-Dimer ABG pH 7.307 L POC ABG pCO2 72.2 H POC ABG pO2 72.3 L ABG pO2 ABG HCO3 ABG O2 Saturation ABG Base Excess ABG Hemoglobin 8.2 L ABG Oxyhemoglobin ABG Sodium 132.3 L ABG Potassium 3.2 L ABG Chloride 91.0 L ABG Glucose 197 H Oxyhemoglobin Carboxyhemoglobin Sodium 135 L Potassium 3.3 L Chloride 87.1 L Carbon Dioxide 36 H BUN 71 H Creatinine 7.9 H Glucose 263 H POC Glucose 192 H Hemoglobin A1c Lactic Acid Calcium 6.2 L Phosphorus Magnesium Ferritin Total Bilirubin AST ALT Lactate Dehydrogenase C-Reactive Protein Albumin Triglycerides Arterial Blood Glucose 197 H Arterial Blood Ionized Calcium 3.3 L Urine Creatinine Coronavirus (PCR) Crossmatch 02/11/21 02/11/21 02/11/21 04:30 05:47 08:27 WBC RBC 2.22 L Hgb 7.2 L Hct 21.0 L MCV MCH MCHC RDW Plt Count Lymph % (Auto) 8.7 L Lymph # (Auto) 0.9 L Seg Neutrophils % 85.5 H Seg Neuts % (Manual) Lymphocytes % (Manual) Nucleated RBC % Seg Neutrophils # 9.2 H Seg Neutrophils # Man Lymphocytes # (Manual) Eosinophils # (Manual) INR 1.17 H D-Dimer 1930.92 H ABG pH POC ABG pCO2 POC ABG pO2 ABG pO2 ABG HCO3 ABG O2 Saturation ABG Base Excess ABG Hemoglobin ABG Oxyhemoglobin ABG Sodium ABG Potassium ABG Chloride ABG Glucose Oxyhemoglobin Carboxyhemoglobin Sodium Potassium Chloride Carbon Dioxide BUN Creatinine Glucose POC Glucose 189 H Hemoglobin A1c Lactic Acid Calcium Phosphorus Magnesium Ferritin Total Bilirubin AST ALT Lactate Dehydrogenase C-Reactive Protein Albumin Triglycerides Arterial Blood Glucose Arterial Blood Ionized Calcium Urine Creatinine Coronavirus (PCR) Crossmatch 02/11/21 02/11/21 02/11/21 09:00 09:00 13:18 WBC RBC Hgb Hct MCV MCH MCHC RDW Plt Count Lymph % (Auto) Lymph # (Auto) Seg Neutrophils % Seg Neuts % (Manual) Lymphocytes % (Manual) Nucleated RBC % Seg Neutrophils # Seg Neutrophils # Man Lymphocytes # (Manual) Eosinophils # (Manual) INR D-Dimer ABG pH POC ABG pCO2 POC ABG pO2 ABG pO2 ABG HCO3 ABG O2 Saturation ABG Base Excess ABG Hemoglobin ABG Oxyhemoglobin ABG Sodium ABG Potassium ABG Chloride ABG Glucose Oxyhemoglobin Carboxyhemoglobin Sodium Potassium Chloride Carbon Dioxide BUN Creatinine Glucose 126 H POC Glucose 160 H Hemoglobin A1c Lactic Acid Calcium Phosphorus Magnesium Ferritin 1253.0 H Total Bilirubin AST ALT Lactate Dehydrogenase 649 H C-Reactive Protein 12.60 H Albumin Triglycerides Arterial Blood Glucose Arterial Blood Ionized Calcium Urine Creatinine Coronavirus (PCR) Crossmatch 02/11/21 02/11/21 02/11/21 14:30 16:59 22:34 WBC RBC Hgb 7.1 L 6.7 L Hct 20.5 L 19.9 L* MCV MCH MCHC RDW Plt Count Lymph % (Auto) Lymph # (Auto) Seg Neutrophils % Seg Neuts % (Manual) Lymphocytes % (Manual) Nucleated RBC % Seg Neutrophils # Seg Neutrophils # Man Lymphocytes # (Manual) Eosinophils # (Manual) INR D-Dimer ABG pH POC ABG pCO2 POC ABG pO2 ABG pO2 ABG HCO3 ABG O2 Saturation ABG Base Excess ABG Hemoglobin ABG Oxyhemoglobin ABG Sodium ABG Potassium ABG Chloride ABG Glucose Oxyhemoglobin Carboxyhemoglobin Sodium Potassium Chloride Carbon Dioxide BUN Creatinine Glucose POC Glucose 151 H Hemoglobin A1c Lactic Acid Calcium Phosphorus Magnesium Ferritin Total Bilirubin AST ALT Lactate Dehydrogenase C-Reactive Protein Albumin Triglycerides Arterial Blood Glucose Arterial Blood Ionized Calcium Urine Creatinine Coronavirus (PCR) Crossmatch 02/11/21 02/12/21 02/12/21 23:42 04:41 05:19 WBC RBC Hgb Hct MCV MCH MCHC RDW Plt Count Lymph % (Auto) Lymph # (Auto) Seg Neutrophils % Seg Neuts % (Manual) Lymphocytes % (Manual) Nucleated RBC % Seg Neutrophils # Seg Neutrophils # Man Lymphocytes # (Manual) Eosinophils # (Manual) INR D-Dimer ABG pH POC ABG pCO2 POC ABG pO2 ABG pO2 69.0 L ABG HCO3 32.5 H ABG O2 Saturation ABG Base Excess 7.7 H ABG Hemoglobin 5.1 L ABG Oxyhemoglobin ABG Sodium ABG Potassium ABG Chloride ABG Glucose Oxyhemoglobin 94.7 L Carboxyhemoglobin Sodium Potassium Chloride Carbon Dioxide BUN Creatinine Glucose POC Glucose 165 H 153 H Hemoglobin A1c Lactic Acid Calcium Phosphorus Magnesium Ferritin Total Bilirubin AST ALT Lactate Dehydrogenase C-Reactive Protein Albumin Triglycerides Arterial Blood Glucose Arterial Blood Ionized Calcium Urine Creatinine Coronavirus (PCR) Crossmatch 04/02/12/21 02/12/21 06:35 06:35 08:40 WBC RBC 2.21 L Hgb 7.2 L Hct 20.7 L MCV MCH 33 H MCHC 35 H RDW Plt Count Lymph % (Auto) Lymph # (Auto) Seg Neutrophils % Seg Neuts % (Manual) Lymphocytes % (Manual) Nucleated RBC % Seg Neutrophils # Seg Neutrophils # Man Lymphocytes # (Manual) Eosinophils # (Manual) INR D-Dimer ABG pH POC ABG pCO2 POC ABG pO2 ABG pO2 ABG HCO3 ABG O2 Saturation ABG Base Excess ABG Hemoglobin ABG Oxyhemoglobin ABG Sodium ABG Potassium ABG Chloride ABG Glucose Oxyhemoglobin Carboxyhemoglobin Sodium 135 L Potassium 3.4 L Chloride 91.8 L Carbon Dioxide 36 H BUN 57 H Creatinine 6.8 H Glucose 163 H POC Glucose Hemoglobin A1c Lactic Acid Calcium 7.0 L Phosphorus Magnesium 1.60 L Ferritin Total Bilirubin AST ALT Lactate Dehydrogenase C-Reactive Protein Albumin Triglycerides Arterial Blood Glucose Arterial Blood Ionized Calcium Urine Creatinine Coronavirus (PCR) Crossmatch 02/12/21 02/12/21 02/12/21 10:45 12:04 17:19 WBC RBC Hgb Hct MCV MCH MCHC RDW Plt Count Lymph % (Auto) Lymph # (Auto) Seg Neutrophils % Seg Neuts % (Manual) Lymphocytes % (Manual) Nucleated RBC % Seg Neutrophils # Seg Neutrophils # Man Lymphocytes # (Manual) Eosinophils # (Manual) INR D-Dimer ABG pH POC ABG pCO2 POC ABG pO2 ABG pO2 ABG HCO3 ABG O2 Saturation ABG Base Excess ABG Hemoglobin ABG Oxyhemoglobin ABG Sodium ABG Potassium ABG Chloride ABG Glucose Oxyhemoglobin Carboxyhemoglobin Sodium Potassium Chloride Carbon Dioxide BUN Creatinine Glucose POC Glucose 165 H 165 H Hemoglobin A1c Lactic Acid Calcium Phosphorus Magnesium Ferritin Total Bilirubin AST ALT Lactate Dehydrogenase C-Reactive Protein Albumin Triglycerides 182 H Arterial Blood Glucose Arterial Blood Ionized Calcium Urine Creatinine Coronavirus (PCR) Crossmatch 02/12/21 02/13/21 02/13/21 23:18 05:00 05:36 WBC RBC Hgb Hct MCV MCH MCHC RDW Plt Count Lymph % (Auto) Lymph # (Auto) Seg Neutrophils % Seg Neuts % (Manual) Lymphocytes % (Manual) Nucleated RBC % Seg Neutrophils # Seg Neutrophils # Man Lymphocytes # (Manual) Eosinophils # (Manual) INR D-Dimer ABG pH POC ABG pCO2 60.8 H POC ABG pO2 76.4 L ABG pO2 ABG HCO3 ABG O2 Saturation ABG Base Excess ABG Hemoglobin 7.4 L ABG Oxyhemoglobin ABG Sodium 133.2 L ABG Potassium 3.3 L ABG Chloride 96.0 L ABG Glucose 168 H Oxyhemoglobin Carboxyhemoglobin Sodium Potassium Chloride Carbon Dioxide BUN Creatinine Glucose POC Glucose 163 H 151 H Hemoglobin A1c Lactic Acid Calcium Phosphorus Magnesium Ferritin Total Bilirubin AST ALT Lactate Dehydrogenase C-Reactive Protein Albumin Triglycerides Arterial Blood Glucose 168 H Arterial Blood Ionized Calcium 4.3 L Urine Creatinine Coronavirus (PCR) Crossmatch 02/13/21 02/13/21 02/13/21 06:40 06:40 06:40 WBC RBC 2.19 L Hgb 7.0 L Hct 20.8 L MCV 95 H MCH MCHC RDW Plt Count Lymph % (Auto) Lymph # (Auto) Seg Neutrophils % Seg Neuts % (Manual) Lymphocytes % (Manual) Nucleated RBC % Seg Neutrophils # Seg Neutrophils # Man Lymphocytes # (Manual) Eosinophils # (Manual) INR D-Dimer ABG pH POC ABG pCO2 POC ABG pO2 ABG pO2 ABG HCO3 ABG O2 Saturation ABG Base Excess ABG Hemoglobin ABG Oxyhemoglobin ABG Sodium ABG Potassium ABG Chloride ABG Glucose Oxyhemoglobin Carboxyhemoglobin Sodium 135 L Potassium 3.4 L Chloride 93.0 L Carbon Dioxide 32 H BUN 46 H Creatinine 5.8 H Glucose 148 H POC Glucose Hemoglobin A1c Lactic Acid Calcium 7.9 L Phosphorus Magnesium Ferritin Total Bilirubin AST ALT Lactate Dehydrogenase C-Reactive Protein 16.80 H Albumin Triglycerides Arterial Blood Glucose Arterial Blood Ionized Calcium Urine Creatinine Coronavirus (PCR) Crossmatch 02/13/21 02/13/21 02/13/21 06:40 07:38 07:38 WBC RBC Hgb Hct MCV MCH MCHC RDW Plt Count Lymph % (Auto) Lymph # (Auto) Seg Neutrophils % Seg Neuts % (Manual) Lymphocytes % (Manual) Nucleated RBC % Seg Neutrophils # Seg Neutrophils # Man Lymphocytes # (Manual) Eosinophils # (Manual) INR D-Dimer 1722.16 H ABG pH POC ABG pCO2 POC ABG pO2 ABG pO2 ABG HCO3 ABG O2 Saturation ABG Base Excess ABG Hemoglobin ABG Oxyhemoglobin ABG Sodium ABG Potassium ABG Chloride ABG Glucose Oxyhemoglobin Carboxyhemoglobin Sodium Potassium Chloride Carbon Dioxide BUN Creatinine Glucose POC Glucose Hemoglobin A1c Lactic Acid Calcium Phosphorus Magnesium 1.60 L Ferritin 976.5 H Total Bilirubin AST ALT Lactate Dehydrogenase C-Reactive Protein Albumin Triglycerides Arterial Blood Glucose Arterial Blood Ionized Calcium Urine Creatinine Coronavirus (PCR) Crossmatch 02/13/21 02/13/21 02/13/21 12:24 16:57 23:32 WBC RBC Hgb Hct MCV MCH MCHC RDW Plt Count Lymph % (Auto) Lymph # (Auto) Seg Neutrophils % Seg Neuts % (Manual) Lymphocytes % (Manual) Nucleated RBC % Seg Neutrophils # Seg Neutrophils # Man Lymphocytes # (Manual) Eosinophils # (Manual) INR D-Dimer ABG pH POC ABG pCO2 POC ABG pO2 ABG pO2 ABG HCO3 ABG O2 Saturation ABG Base Excess ABG Hemoglobin ABG Oxyhemoglobin ABG Sodium ABG Potassium ABG Chloride ABG Glucose Oxyhemoglobin Carboxyhemoglobin Sodium Potassium Chloride Carbon Dioxide BUN Creatinine Glucose POC Glucose 141 H 156 H 161 H Hemoglobin A1c Lactic Acid Calcium Phosphorus Magnesium Ferritin Total Bilirubin AST ALT Lactate Dehydrogenase C-Reactive Protein Albumin Triglycerides Arterial Blood Glucose Arterial Blood Ionized Calcium Urine Creatinine Coronavirus (PCR) Crossmatch 02/14/21 02/14/21 02/14/21 04:00 05:41 11:00 WBC RBC 2.14 L Hgb 6.9 L Hct 20.7 L MCV 97 H MCH 33 H MCHC RDW Plt Count Lymph % (Auto) Lymph # (Auto) Seg Neutrophils % Seg Neuts % (Manual) Lymphocytes % (Manual) Nucleated RBC % Seg Neutrophils # Seg Neutrophils # Man Lymphocytes # (Manual) Eosinophils # (Manual) INR D-Dimer ABG pH POC ABG pCO2 POC ABG pO2 ABG pO2 ABG HCO3 ABG O2 Saturation ABG Base Excess ABG Hemoglobin ABG Oxyhemoglobin ABG Sodium ABG Potassium ABG Chloride ABG Glucose Oxyhemoglobin Carboxyhemoglobin Sodium Potassium Chloride Carbon Dioxide BUN Creatinine Glucose POC Glucose 143 H Hemoglobin A1c Lactic Acid Calcium Phosphorus Magnesium Ferritin Total Bilirubin AST ALT Lactate Dehydrogenase C-Reactive Protein Albumin Triglycerides Arterial Blood Glucose Arterial Blood Ionized Calcium Urine Creatinine Coronavirus (PCR) Crossmatch See Detail 02/14/21 02/14/21 02/14/21 11:51 18:08 23:41 WBC RBC Hgb Hct MCV MCH MCHC RDW Plt Count Lymph % (Auto) Lymph # (Auto) Seg Neutrophils % Seg Neuts % (Manual) Lymphocytes % (Manual) Nucleated RBC % Seg Neutrophils # Seg Neutrophils # Man Lymphocytes # (Manual) Eosinophils # (Manual) INR D-Dimer ABG pH POC ABG pCO2 POC ABG pO2 ABG pO2 ABG HCO3 ABG O2 Saturation ABG Base Excess ABG Hemoglobin ABG Oxyhemoglobin ABG Sodium ABG Potassium ABG Chloride ABG Glucose Oxyhemoglobin Carboxyhemoglobin Sodium Potassium Chloride Carbon Dioxide BUN Creatinine Glucose POC Glucose 113 H 123 H 120 H Hemoglobin A1c Lactic Acid Calcium Phosphorus Magnesium Ferritin Total Bilirubin AST ALT Lactate Dehydrogenase C-Reactive Protein Albumin Triglycerides Arterial Blood Glucose Arterial Blood Ionized Calcium Urine Creatinine Coronavirus (PCR) Crossmatch 02/14/21 02/15/21 02/15/21 Unknown 05:00 05:00 WBC RBC Hgb Hct MCV MCH MCHC RDW Plt Count Lymph % (Auto) Lymph # (Auto) Seg Neutrophils % Seg Neuts % (Manual) Lymphocytes % (Manual) Nucleated RBC % Seg Neutrophils # Seg Neutrophils # Man Lymphocytes # (Manual) Eosinophils # (Manual) INR D-Dimer ABG pH POC ABG pCO2 53.4 H POC ABG pO2 61.8 L ABG pO2 ABG HCO3 ABG O2 Saturation ABG Base Excess ABG Hemoglobin 7.7 L ABG Oxyhemoglobin 88.8 L ABG Sodium ABG Potassium ABG Chloride ABG Glucose 143 H Oxyhemoglobin Carboxyhemoglobin 1.6 H Sodium Potassium Chloride 96.9 L Carbon Dioxide 33 H 31 H BUN 40 H 38 H Creatinine 5.2 H 4.8 H Glucose 152 H 132 H POC Glucose Hemoglobin A1c Lactic Acid Calcium 7.9 L Phosphorus Magnesium Ferritin Total Bilirubin AST ALT Lactate Dehydrogenase C-Reactive Protein Albumin Triglycerides Arterial Blood Glucose 143 H Arterial Blood Ionized Calcium Urine Creatinine Coronavirus (PCR) Crossmatch 02/15/21 02/15/21 02/15/21 05:00 05:27 12:05 WBC RBC 2.30 L Hgb 7.1 L Hct 22.1 L MCV 96 H MCH MCHC RDW 15.7 H Plt Count Lymph % (Auto) 11.0 L Lymph # (Auto) 1.1 L Seg Neutrophils % 83.0 H Seg Neuts % (Manual) Lymphocytes % (Manual) Nucleated RBC % Seg Neutrophils # 8.6 H Seg Neutrophils # Man Lymphocytes # (Manual) Eosinophils # (Manual) INR D-Dimer ABG pH POC ABG pCO2 POC ABG pO2 ABG pO2 ABG HCO3 ABG O2 Saturation ABG Base Excess ABG Hemoglobin ABG Oxyhemoglobin ABG Sodium ABG Potassium ABG Chloride ABG Glucose Oxyhemoglobin Carboxyhemoglobin Sodium Potassium Chloride Carbon Dioxide BUN Creatinine Glucose POC Glucose 133 H 123 H Hemoglobin A1c Lactic Acid Calcium Phosphorus Magnesium Ferritin Total Bilirubin AST ALT Lactate Dehydrogenase C-Reactive Protein Albumin Triglycerides Arterial Blood Glucose Arterial Blood Ionized Calcium Urine Creatinine Coronavirus (PCR) Crossmatch 02/15/21 17:08 WBC RBC Hgb Hct MCV MCH MCHC RDW Plt Count Lymph % (Auto) Lymph # (Auto) Seg Neutrophils % Seg Neuts % (Manual) Lymphocytes % (Manual) Nucleated RBC % Seg Neutrophils # Seg Neutrophils # Man Lymphocytes # (Manual) Eosinophils # (Manual) INR D-Dimer ABG pH POC ABG pCO2 POC ABG pO2 ABG pO2 ABG HCO3 ABG O2 Saturation ABG Base Excess ABG Hemoglobin ABG Oxyhemoglobin ABG Sodium ABG Potassium ABG Chloride ABG Glucose Oxyhemoglobin Carboxyhemoglobin Sodium Potassium Chloride Carbon Dioxide BUN Creatinine Glucose POC Glucose 129 H Hemoglobin A1c Lactic Acid Calcium Phosphorus Magnesium Ferritin Total Bilirubin AST ALT Lactate Dehydrogenase C-Reactive Protein Albumin Triglycerides Arterial Blood Glucose Arterial Blood Ionized Calcium Urine Creatinine Coronavirus (PCR) Crossmatch Chest x-ray: report reviewed, image reviewed
[2021-02-16] MEDS: fentaNYL DRIP Premix 2,000 MCG/100 ML BAG IV SCH ×5 (03:01→22:57)
[2021-02-16 05:48] LABS: Hematocrit 21.3 % (35.5-45.6); Hemoglobin 7.1 gm/dl (11.8-15.2); Mean Corpuscular HGB Conc 33 % (32-34); Mean Corpuscular Volume 98 fl (84-94); Platelet Count 258 K/mm3 (140-440); Red Blood Count 2.19 M/mm3 (3.65-5.03)
[2021-02-16] MEDS: dexmedeTOMIDine 1,000 MCG in SODIUM CHLORIDE 0.9% 250ML 250 ML IV SCH ×4 (06:09→23:44)
[2021-02-16 07:58] LABS: Band Neutrophils # (Manual) 0.2 K/mm3; Total Cells Counted 100
[2021-02-16 07:59] LABS: Anisocytosis 1+; Platelet Estimate Consistent w Auto
[2021-02-16] MEDS: PANTOPRAZOLE 40 MG INJ IV SCH (10:59)
--- NOTE | 2021-02-16 13:10 | Progress Note ---
Assessment and Plan Assessment: Acute Hypoxic respiratory failure COVID-19 PNA Severe sepsis with septic shock Acute kidney injury secondary to ATN Hyperkalemia Hypernatremia DM2 on insulin Anemia Plan: Judith labs reviewed. Serum creatinine 6.0 today, yesterday's was 4.8 Hemodialysis today for UF and clearance Initiated on HD on 02/03/21 S/P Right IJ Trialysis dialysis catheter placement by Dr Reddy Strict I&O's monitoring Renally dose medications Assess dialysis needs daily Monitor for renal recovery Subjective Date of service: 02/16/21 Principal diagnosis: DEISI Interval history: Patient not directly seen or examined due to being with active COVID-19 infection to limit/reduce risk of exposure and or transmission of the disease in this pandemic and due to limited PPE resources. Objective - Vital Signs Vital signs: Vital Signs - 12hr 02/16/21 02/16/21 02/16/21 01:30 02:00 02:30 Temperature Pulse Rate 72 74 71 Pulse Rate [ From Monitor] Respiratory 34 H 34 H 34 H Rate Blood Pressure 96/62 101/62 96/61 O2 Sat by Pulse 94 93 95 Oximetry O2 Sat by Pulse Oximetry [ Anterior Bilateral Throughout] 02/16/21 02/16/21 02/16/21 03:00 03:25 03:30 Temperature Pulse Rate 71 74 71 Pulse Rate [ From Monitor] Respiratory 34 H 34 H Rate Blood Pressure 100/59 100/59 101/63 O2 Sat by Pulse 93 93 94 Oximetry O2 Sat by Pulse Oximetry [ Anterior Bilateral Throughout] 02/16/21 02/16/21 02/16/21 04:00 04:30 05:00 Temperature 98.9 F Pulse Rate 73 74 72 Pulse Rate [ 74 From Monitor] Respiratory 34 H 34 H 34 H Rate Blood Pressure 100/59 99/64 101/63 O2 Sat by Pulse 93 92 94 Oximetry O2 Sat by Pulse Oximetry [ Anterior Bilateral Throughout] 02/16/21 02/16/21 02/16/21 05:30 06:00 06:30 Temperature Pulse Rate 72 74 71 Pulse Rate [ From Monitor] Respiratory 34 H 34 H 34 H Rate Blood Pressure 97/61 99/62 96/62 O2 Sat by Pulse 92 92 93 Oximetry O2 Sat by Pulse Oximetry [ Anterior Bilateral Throughout] 02/16/21 02/16/21 02/16/21 07:00 07:30 07:42 Temperature Pulse Rate 71 69 71 Pulse Rate [ From Monitor] Respiratory 34 H 34 H Rate Blood Pressure 98/61 99/65 99/65 O2 Sat by Pulse 93 93 92 Oximetry O2 Sat by Pulse Oximetry [ Anterior Bilateral Throughout] 02/16/21 02/16/21 02/16/21 08:00 08:30 09:00 Temperature 98.7 F Pulse Rate 81 86 84 Pulse Rate [ 86 From Monitor] Respiratory 32 H 34 H 35 H Rate Blood Pressure 106/63 115/68 105/68 O2 Sat by Pulse 92 93 90 Oximetry O2 Sat by Pulse Oximetry [ Anterior Bilateral Throughout] 02/16/21 02/16/21 02/16/21 09:30 10:00 10:30 Temperature Pulse Rate 81 77 75 Pulse Rate [ From Monitor] Respiratory 35 H 35 H 34 H Rate Blood Pressure 107/68 121/73 114/68 O2 Sat by Pulse 90 92 87 Oximetry O2 Sat by Pulse Oximetry [ Anterior Bilateral Throughout] 02/16/21 02/16/21 02/16/21 10:50 10:53 11:00 Temperature 99.1 F Pulse Rate 72 74 74 Pulse Rate [ From Monitor] Respiratory 34 H 36 H Rate Blood Pressure 102/60 107/62 101/63 O2 Sat by Pulse 90 Oximetry O2 Sat by Pulse 90 Oximetry [ Anterior Bilateral Throughout] 02/16/21 02/16/21 02/16/21 11:15 11:30 11:45 Temperature Pulse Rate 77 80 78 Pulse Rate [ From Monitor] Respiratory 23 Rate Blood Pressure 105/62 107/64 93/56 O2 Sat by Pulse 91 Oximetry O2 Sat by Pulse Oximetry [ Anterior Bilateral Throughout] 02/16/21 02/16/21 02/16/21 12:00 12:15 12:24 Temperature 98.9 F Pulse Rate 81 79 78 Pulse Rate [ From Monitor] Respiratory 21 Rate Blood Pressure 90/55 91/55 91/55 O2 Sat by Pulse 90 91 Oximetry O2 Sat by Pulse Oximetry [ Anterior Bilateral Throughout] 02/16/21 02/16/21 02/16/21 12:30 12:45 13:00 Temperature Pulse Rate 80 81 84 Pulse Rate [ From Monitor] Respiratory 30 H Rate Blood Pressure 94/57 99/58 109/65 O2 Sat by Pulse 91 Oximetry O2 Sat by Pulse Oximetry [ Anterior Bilateral Throughout] - Lab 02/16/21 Unknown 02/16/21 06:00 Most recent lab results ABG pH 7.307 (7.320-7.450) L 02/16/21 03:44 ABG pCO2 51.2 mm Hg 02/12/21 04:41 ABG pO2 69.0 mm Hg (80.0-90.0) L 02/12/21 04:41 ABG HCO3 32.5 mmol/L (20.0-26.0) H 02/12/21 04:41 ABG O2 Saturation 90.1 (0-100) 02/16/21 03:44 Calcium 9.0 mg/dL (8.4-10.2) 02/16/21 06:00 Phosphorus 3.90 mg/dL (2.5-4.5) 02/13/21 06:40 Magnesium 1.60 mg/dL (1.7-2.3) L 02/13/21 06:40 Urine Creatinine 53.0 mg/dL (0.1-20.0) H 01/30/21 12:00 Urine Sodium 28 mmol/L 01/22/21 22:39 Medications & Allergies - Medications Allergies/Adverse Reactions: Allergies No Known Allergies Allergy (Unverified 03/12/20 13:41) Home Medications: Home Medications Medication Instructions Recorded Confirmed Last Taken Type Clindamycin [Clindamycin CAP] 300 mg PO Q8H #21 cap 03/12/20 Unknown Rx Insulin NPH/Regular [Novolin 70/30] 18 unit SUB-Q TIDAC #1 vial 03/12/20 Unknown Rx Syringe-Needle,Insulin,0.5 ml 1 box MC TID #1 box 03/12/20 Unknown Rx [Insulin Syringe/Needle 0.5 ML] Active Medications: Generic Name Dose Route Start Last Admin Trade Name Freq PRN Reason Stop Dose Admin Acetaminophen 650 mg 01/23/21 02:25 02/11/21 18:20 Acetaminophen 650 Mg Rect Supp [place] 650 mg Q4H PRN Administration Pain, Mild (1-3) Acetaminophen 650 mg 01/24/21 12:58 02/15/21 18:06 Acetaminophen 325 Mg/10.15 Ml Oral Liqd Unit Dose FEEDTUBE 650 mg Q6H PRN Administration Pain, Mild (1-3) Lipase/Protease/Amylase 1 each 01/26/21 14:25 Lipase 10,500/Protease 25,000/Amylase 43,750 (Units) Dr Cap FEEDTUBE PRN PRN For Clogged Feeding Tube Dextrose 50 ml 01/27/21 07:24 Dextrose 50% In Water (25gm) 50 Ml Syringe IV Q30MIN PRN Hypoglycemia Protocol Fentanyl 50 mcg 01/22/21 22:39 02/10/21 13:46 Fentanyl 100 Mcg/2 Ml Inj IV 50 mcg Q10MIN PRN Administration ANALGESIA Heparin Sodium (Porcine) 2,000 unit 02/11/21 09:38 Heparin 10,000 Units/10 Ml Vial IV SAGRARIO PRN hemodialysis Hydrophilic Ointment 1 applic 01/22/21 22:39 Lip Therapy Vaseline TP Q2HR PRN Dry Lips Fentanyl Citrate 2,000 mcg in 100 mls @ 6.124 mls/hr 01/22/21 23:00 02/16/21 12:31 Fentanyl Drip Premix IV 2 mcg/kg/hr TITR CECE 12.247 mls/hr Titration Protocol 1 MCG/KG/HR Propofol 1,000 mg in 100 mls @ 3.674 mls/hr 01/22/21 23:45 02/16/21 12:31 Diprivan 10 Mg/Ml IV 10 mcg/kg/min TITR CECE 7.348 mls/hr Titration Protocol 5 MCG/KG/MIN Norepinephrine 4 mg in 250 mls @ 7.5 mls/hr 01/28/21 14:00 02/08/21 06:08 Levophed Drip 4 Mg/Ns 250 Ml IV 0 mcg/min TITR CECE 0 mls/hr Titration Protocol 2 MCG/MIN Dexmedetomidine HCl 1,000 mcg/ 260 mls @ 6.368 mls/hr 01/30/21 20:00 02/16/21 11:25 Sodium Chloride IV 1 mcg/kg/hr TITRATE CECE 31.842 mls/hr Titration Protocol 0.2 MCG/KG/HR Sodium Chloride 100 mls @ 999 mls/hr 02/14/21 11:00 Nacl 0.9% IV SAGRARIO PRN Hypotension Sodium Chloride 100 mls @ 999 mls/hr 02/15/21 16:45 Nacl 0.9% IV SAGRARIO PRN Hypotension Multi-Ingred Cream/Lotion/Oil/Oint 1 applic 01/22/21 22:39 02/01/21 09:33 Mineral Oil/Petrolatum, White Ophth Oint 3.5 Gm OU 1 applic Q4HR PRN Administration Dry Eye(s) Ondansetron HCl 4 mg 01/23/21 02:17 Ondansetron 4 Mg/2 Ml Inj IV Q8H PRN Nausea And Vomiting Pantoprazole Sodium 40 mg 02/15/21 10:00 02/16/21 10:59 Pantoprazole 40 Mg Inj IV 40 mg DAILY CECE Administration Simple Syrup 15 ml 01/26/21 14:25 Simple Syrup 15 Ml FEEDTUBE PRN PRN Hypoglycemia Simple Syrup 30 ml 01/26/21 14:25 Simple Syrup 15 Ml FEEDTUBE PRN PRN Hypoglycemia Sodium Bicarbonate 325 mg 01/26/21 14:25 Sodium Bicarbonate 325 Mg Tab FEEDTUBE PRN PRN For Clogged Feeding Tube
--- NOTE | 2021-02-16 13:42 | Progress Note ---
Assessment and Plan 60 y/o male with ARDS secondary most likely to COVID 19 pneumonia. 02/16/21: HD now. Wean FiO2 for sats> 88%. Agree with stopping ativan and holding on starting diprovan to see if the patient truly needs it. pH holding off bicarb drip goal is >7.2. Very very guarded to poor prognosis. 02/13/21: HD again now. Replace electrolytes per renal. Continue abx therapy per ID. Will get RT to wean FiO2 as not done on yesterday. Will restart diprovan post HD and stop ativan. Check Levels (Triglycerides on Tue or Tuesday). Can stop bicarb drip however must make sure that ABG is checked daily to make sure that pH is good. Very very guarded prognosis. 02/12/21: HD again today. Had a 12 second run of VTACH today as well. Stable. K is low, checking mag levels. Will alert Renal so they can adjust bath as needed. Post HD will start to wean FiO2 again. Unable to prone as patient does not tolerate. Repeat blood cultures negative and first set only showing Coag Negative Staph. Prognosis still remains very very guarded to poor. Will consider restarting Diprovan tomorrow. Patient now intubated for 20 days now but not candidate for trach yet given elevated PEEP and FiO2 levels but did discuss on rounds. 02/11/21: Vascath placed today for HD. Orders already in. Wean FiO2 for sats >88%. Abx per ID. Repeat cultures so far negative. Given persistent fevers, will check upper ext dopplers. Prognosis still remains guarded. 02/10/21: Triglycerides improved but current sedation is adequate so will hold on stopping ativan to add propofol back. Awaiting Labs from this morning. Plan to replace HD catheter tomorrow morning as early as possible. Fever curve is trending down. Continue bicarb drip for now. Prognosis remains guarded. WIll speak with family tomorrow to update. 02/09/21: Repeat Triglycerides today. Follow up repeat blood cultures. Given continued fever will hold on replacing vascath today. If fever free the next 24 hours, can place in the morning or Tuesday morning. Will likely need blood with next HD session. Continue bicarb drip to help manage respiratory as well as metabolic acidosis. Wean FiO2 for sats >88% and PaO2 >55. Overall prognosis remains guarded to poor. 02/08/21: Picc out today. Will repeat culture if patient spikes again today. Plan to replace HD catheter either late tomorrow or Tuesday morning. Continue current level of sedation. Abx therapy per ID. Wean FiO2 as tolerated, doubt will be able to do much until we can resume HD. Guarded prognosis. Replaced potassium. Will need to check in the morning. Will repeat K later this afternoon. 02/07/21: Biggest issue now is that patient's numbers are better with HD but now with bacteremia, concern for line infection. ID is correct in requesting line holiday. Has a picc and an Right IJ Dialysis catheter with 3 ports. Currently getting HD today. Have not seen renal yet. Will pull right IJ line post HD and plan to replace it Tuesday evening or Tuesday. Continue bicarb drip for now and will keep picc as patient has been requiring levophed. If able to be weaned off levophed, will remove picc either tomorrow or Tuesday. Continue Ativan, Precedex and Fent drips, repeat Triglycerides on Tuesday. Very very guarded prognosis. Will remove Black today as well. 02/06/21: Will add bicarb drip at 125/hr. Giving 2 amps of NaHCO3 push now. Will repeat ABG this afternoon, may just ask for Art Line if possible. HD today per renal and I spoke with them about the bicarb drip. Long discussion with Sister, Significant and other and another family member on the phone on yesterday. I tried my best to explain the severity of the clinical state but not sure if they fully understood. The patient is very very ill and history suggests that his outcome will be poor (intubated with covid and renal failure on dialysis). This was expressed with the family. Will continue all suppo rtive measures. Checking triglyceride levels today. 02/05/21: WIll increase PEEP to 16. Can increase pressors if needed for BP control during HD. Follow up cultures. If negative will scan legs and arms again for VTE. Repeat ABG at 1400 today. Will speak with sister and Girlfriend on phone today. 02/04/21: HD again today per renal notes. Likely will need daily HD. New fevers. Will draw blood and urine cultures if able to still make urine.. Repeat CXR. May need to check dopplers if all of those studies are negative. Wean FIO2 as tolerated. Unable to tolerate proning. Guarded to poor prognosis. 02/03/21: HD today per renal. Wean FiO2 as tolerated. No further proning as patient cannot tolerate it, however with volume removal, may consider in the future. Use pressors to keep MAPs 65 and greater for HD purporses so volume can be removed. (IJ was wide open (filled with blood)) with patient sitting up at 45 degrees. Guarded prognosis. 02/02/21: After renal speaks with family, will place vascath today. Agree with bicarb drip but will order some pushes now to help with pH. Overall prognosis is very very guarded to poor now that patient is COVID positive and requiring renal replacement therapy. Mortality is very high in these patients. Continue steroid therapy. Unable to tolerate proning. 01/30/21: Will plan for proning later today. Goal will be at least 12hrs but long is okay. Speaking with pharmacy to see if we can get paralytic for a longer per iod of time. Regardless will prone. Continue heavy sedation. BP stable. Continue steroids. Very very guarded prognosis. 01/29/21: will increase tidal volume and/or increase respiratory rate. Repeat ABG this afternoon. Continue paralytic and adequate sedation. Continue steroid and remdesivir, follow up any renal recs. Prognosis remains guarded. Wean Fio2 for sats >88% 01/28/21: Increased PEEP to 16. Will paralyze patient today and increase sedation. Ordering picc line for possible vasopressor therapy needs. Continue BID steroids. Renal function is slightly better today with fluids but could be making oxygenation worse. Not able to diurese. Still making urine. Continue Remdesivir. Watch for fever curve. If not improvement in the next 24 hours with paralyzing, will prone tomorrow morning. 01/27/21: Continue PEEP at 14. No weaning until FiO2 is at or below 40-45%. Continue anticoagulation. Getting Remdesivir now. Continue BID steroids. Renal has increased the fluids. Monitor urine output and renal function. Overall prognosis is very very guarded, especially if renal status worsens. 01/26/21: Increase PEEP to 14. Will add Precedex therapy. If patient does not respond to increases in PEEP may need to prone. Will place patient on lovenox and will feed patient. Remdesivir coming. Continue BID steroids. Prognosis is guarded. 01/25/21: Hold on proning today. Continue BID steroids. ABG this AM was adequate. Pending abg tomorrow, may increase PEEP if not able to wean FiO2 any further. Per charting Remdesivir to arrive tomorrow. Guarded prognosis. 01/24/21: Continue BID steroids. No abg done this am but able to wean FiO2. Will obtain ABG in the am. Hold on proning for right now. Renal following, would like to diurese but they are given fluids for deisi. Agree with ID assessment and note. Guarded prognosis. 1. Increase steroids to BID given size 2. Check with ID to see if he is a candidate for remdesivir or any other experiemental therapy 3. Hold on proning for right now 4. Renal consulted and giving IVF's currently Guarded prognosis. CCT 31 minutes. Subjective Date of service: 02/16/21 Principal diagnosis: DEISI Interval history: No acute events. Getting hD right now. Sedated. On 75% Objective Vital Signs - 12hr 02/16/21 02/16/21 02/16/21 02:00 02:30 03:00 Temperature Pulse Rate 74 71 71 Pulse Rate [ From Monitor] Respiratory 34 H 34 H 34 H Rate Blood Pressure 101/62 96/61 100/59 O2 Sat by Pulse 93 95 93 Oximetry O2 Sat by Pulse Oximetry [ Anterior Bilateral Throughout] 02/16/21 02/16/21 02/16/21 03:25 03:30 04:00 Temperature 98.9 F Pulse Rate 74 71 73 Pulse Rate [ 74 From Monitor] Respiratory 34 H 34 H Rate Blood Pressure 100/59 101/63 100/59 O2 Sat by Pulse 93 94 93 Oximetry O2 Sat by Pulse Oximetry [ Anterior Bilateral Throughout] 02/16/21 02/16/21 02/16/21 04:30 05:00 05:30 Temperature Pulse Rate 74 72 72 Pulse Rate [ From Monitor] Respiratory 34 H 34 H 34 H Rate Blood Pressure 99/64 101/63 97/61 O2 Sat by Pulse 92 94 92 Oximetry O2 Sat by Pulse Oximetry [ Anterior Bilateral Throughout] 02/16/21 02/16/21 02/16/21 06:00 06:30 07:00 Temperature Pulse Rate 74 71 71 Pulse Rate [ From Monitor] Respiratory 34 H 34 H 34 H Rate Blood Pressure 99/62 96/62 98/61 O2 Sat by Pulse 92 93 93 Oximetry O2 Sat by Pulse Oximetry [ Anterior Bilateral Throughout] 02/16/21 02/16/21 02/16/21 07:30 07:42 08:00 Temperature 98.7 F Pulse Rate 69 71 81 Pulse Rate [ 86 From Monitor] Respiratory 34 H 32 H Rate Blood Pressure 99/65 99/65 106/63 O2 Sat by Pulse 93 92 92 Oximetry O2 Sat by Pulse Oximetry [ Anterior Bilateral Throughout] 02/16/21 02/16/21 02/16/21 08:30 09:00 09:30 Temperature Pulse Rate 86 84 81 Pulse Rate [ From Monitor] Respiratory 34 H 35 H 35 H Rate Blood Pressure 115/68 105/68 107/68 O2 Sat by Pulse 93 90 90 Oximetry O2 Sat by Pulse Oximetry [ Anterior Bilateral Throughout] 02/16/21 02/16/21 02/16/21 10:00 10:30 10:50 Temperature 99.1 F Pulse Rate 77 75 72 Pulse Rate [ From Monitor] Respiratory 35 H 34 H 34 H Rate Blood Pressure 121/73 114/68 102/60 O2 Sat by Pulse 92 87 Oximetry O2 Sat by Pulse 90 Oximetry [ Anterior Bilateral Throughout] 02/16/21 02/16/21 02/16/21 10:53 11:00 11:15 Temperature Pulse Rate 74 74 77 Pulse Rate [ From Monitor] Respiratory 36 H Rate Blood Pressure 107/62 101/63 105/62 O2 Sat by Pulse 90 Oximetry O2 Sat by Pulse Oximetry [ Anterior Bilateral Throughout] 02/16/21 02/16/21 02/16/21 11:30 11:45 12:00 Temperature 98.9 F Pulse Rate 80 78 81 Pulse Rate [ From Monitor] Respiratory 23 21 Rate Blood Pressure 107/64 93/56 90/55 O2 Sat by Pulse 91 90 Oximetry O2 Sat by Pulse Oximetry [ Anterior Bilateral Throughout] 02/16/21 02/16/21 02/16/21 12:15 12:24 12:30 Temperature Pulse Rate 79 78 80 Pulse Rate [ From Monitor] Respiratory 30 H Rate Blood Pressure 91/55 91/55 94/57 O2 Sat by Pulse 91 91 Oximetry O2 Sat by Pulse Oximetry [ Anterior Bilateral Throughout] 02/16/21 02/16/21 02/16/21 12:45 13:00 13:15 Temperature Pulse Rate 81 84 82 Pulse Rate [ From Monitor] Respiratory Rate Blood Pressure 99/58 109/65 110/67 O2 Sat by Pulse Oximetry O2 Sat by Pulse Oximetry [ Anterior Bilateral Throughout] 02/16/21 13:30 Temperature Pulse Rate 97 H Pulse Rate [ From Monitor] Respiratory Rate Blood Pressure 127/67 O2 Sat by Pulse Oximetry O2 Sat by Pulse Oximetry [ Anterior Bilateral Throughout] Constitutional: comatose Eyes: non-icteric ENT: other (orally intubated and sedated) Neck: supple Effort: mildly labored Ascultation: Bilateral: clear Percussion: Bilateral: not dull Cardiovascular: regular rate and rhythm (no mrg) Gastrointestinal: normoactive bowel sounds, soft, non-tender, non-distended Integumentary: normal Extremities: no cyanosis, no edema, pink and warm Neurologic: unable to assess CBC and BMP: 02/16/21 Unknown 02/16/21 06:00 ABG, PT/INR, D-dimer: ABG ABG pH 7.307 (7.320-7.450) L 02/16/21 03:44 POC ABG pCO2 59.5 mmHg (32.0-48.0) H 02/16/21 03:44 ABG pCO2 51.2 mm Hg 02/12/21 04:41 POC ABG pO2 63.2 mmHg (83-108) L 02/16/21 03:44 ABG pO2 69.0 mm Hg (80.0-90.0) L 02/12/21 04:41 POC ABG HCO3 29.1 02/16/21 03:44 ABG O2 Saturation 90.1 (0-100) 02/16/21 03:44 PT/INR, D-dimer PT 14.9 Sec. (12.2-14.9) 02/11/21 08:27 INR 1.17 (0.87-1.13) H 02/11/21 08:27 D-Dimer 1722.16 ng/mlDDU (0-234) H 02/13/21 07:38 Abnormal lab findings: Abnormal Labs 01/22/21 01/22/21 01/22/21 22:39 22:57 22:57 WBC RBC Hgb Hct MCV MCH MCHC RDW Plt Count Lymph % (Auto) 6.6 L Lymph # (Auto) 0.5 L Seg Neutrophils % 87.6 H Seg Neuts % (Manual) Lymphocytes % (Manual) Nucleated RBC % Seg Neutrophils # Seg Neutrophils # Man Lymphocytes # (Manual) Eosinophils # (Manual) INR D-Dimer ABG pH POC ABG pCO2 POC ABG pO2 ABG pO2 ABG HCO3 ABG O2 Saturation ABG Base Excess ABG Hemoglobin ABG Oxyhemoglobin ABG Sodium ABG Potassium ABG Chloride ABG Glucose Oxyhemoglobin Carboxyhemoglobin Sodium 129 L Potassium 3.4 L Chloride 90.4 L Carbon Dioxide BUN 34 H Creatinine 1.5 H Glucose 146 H POC Glucose Hemoglobin A1c Lactic Acid Calcium 7.8 L Phosphorus Magnesium Ferritin Total Bilirubin AST 75 H ALT 57 H Lactate Dehydrogenase C-Reactive Protein Albumin 2.9 L Triglycerides Arterial Blood Glucose Arterial Blood Ionized Calcium Urine Creatinine 301.2 H Coronavirus (PCR) Crossmatch 01/22/21 01/22/21 01/22/21 22:57 22:57 22:57 WBC RBC Hgb Hct MCV MCH MCHC RDW Plt Count Lymph % (Auto) Lymph # (Auto) Seg Neutrophils % Seg Neuts % (Manual) Lymphocytes % (Manual) Nucleated RBC % Seg Neutrophils # Seg Neutrophils # Man Lymphocytes # (Manual) Eosinophils # (Manual) INR D-Dimer 1173.89 H ABG pH POC ABG pCO2 POC ABG pO2 ABG pO2 ABG HCO3 ABG O2 Saturation ABG Base Excess ABG Hemoglobin ABG Oxyhemoglobin ABG Sodium ABG Potassium ABG Chloride ABG Glucose Oxyhemoglobin Carboxyhemoglobin Sodium Potassium Chloride Carbon Dioxide BUN Creatinine Glucose 149 H POC Glucose Hemoglobin A1c Lactic Acid 2.10 H* Calcium Phosphorus Magnesium Ferritin Total Bilirubin AST ALT Lactate Dehydrogenase 685 H C-Reactive Protein 30.40 H Albumin Triglycerides Arterial Blood Glucose Arterial Blood Ionized Calcium Urine Creatinine Coronavirus (PCR) Crossmatch 01/22/21 01/23/21 01/23/21 22:57 08:41 10:01 WBC RBC Hgb Hct MCV MCH MCHC RDW Plt Count Lymph % (Auto) Lymph # (Auto) Seg Neutrophils % Seg Neuts % (Manual) Lymphocytes % (Manual) Nucleated RBC % Seg Neutrophils # Seg Neutrophils # Man Lymphocytes # (Manual) Eosinophils # (Manual) INR D-Dimer ABG pH POC ABG pCO2 POC ABG pO2 ABG pO2 ABG HCO3 ABG O2 Saturation ABG Base Excess ABG Hemoglobin ABG Oxyhemoglobin ABG Sodium ABG Potassium ABG Chloride ABG Glucose Oxyhemoglobin Carboxyhemoglobin Sodium 131 L Potassium Chloride 88.7 L Carbon Dioxide 18 L BUN 36 H Creatinine 1.6 H Glucose 147 H POC Glucose Hemoglobin A1c Lactic Acid Calcium 7.5 L Phosphorus Magnesium Ferritin 1207.0 H Total Bilirubin AST ALT Lactate Dehydrogenase C-Reactive Protein Albumin Triglycerides Arterial Blood Glucose Arterial Blood Ionized Calcium Urine Creatinine Coronavirus (PCR) Positive A Crossmatch 01/23/21 01/23/21 01/24/21 20:49 Unknown 00:10 WBC RBC Hgb Hct MCV MCH MCHC RDW Plt Count Lymph % (Auto) Lymph # (Auto) Seg Neutrophils % Seg Neuts % (Manual) Lymphocytes % (Manual) Nucleated RBC % Seg Neutrophils # Seg Neutrophils # Man Lymphocytes # (Manual) Eosinophils # (Manual) INR D-Dimer ABG pH POC ABG pCO2 POC ABG pO2 ABG pO2 165.4 H ABG HCO3 ABG O2 Saturation ABG Base Excess -2.5 L ABG Hemoglobin ABG Oxyhemoglobin ABG Sodium ABG Potassium ABG Chloride ABG Glucose Oxyhemoglobin Carboxyhemoglobin Sodium 130 L Potassium Chloride 91.0 L Carbon Dioxide 20 L BUN 52 H Creatinine 3.8 H D Glucose 150 H POC Glucose 125 H Hemoglobin A1c Lactic Acid Calcium 8.0 L Phosphorus Magnesium Ferritin Total Bilirubin AST 42 H ALT Lactate Dehydrogenase C-Reactive Protein Albumin 2.4 L Triglycerides Arterial Blood Glucose Arterial Blood Ionized Calcium Urine Creatinine Coronavirus (PCR) Crossmatch 01/24/21 01/24/21 01/24/21 05:05 05:05 05:05 WBC 14.0 H RBC Hgb Hct MCV 95 H MCH 33 H MCHC RDW Plt Count Lymph % (Auto) Lymph # (Auto) Seg Neutrophils % Seg Neuts % (Manual) 91.0 H Lymphocytes % (Manual) 4.0 L Nucleated RBC % Seg Neutrophils # Seg Neutrophils # Man 12.7 H Lymphocytes # (Manual) 0.6 L Eosinophils # (Manual) INR D-Dimer 6159.48 H ABG pH POC ABG pCO2 POC ABG pO2 ABG pO2 ABG HCO3 ABG O2 Saturation ABG Base Excess ABG Hemoglobin ABG Oxyhemoglobin ABG Sodium ABG Potassium ABG Chloride ABG Glucose Oxyhemoglobin Carboxyhemoglobin Sodium Potassium Chloride Carbon Dioxide BUN Creatinine Glucose POC Glucose Hemoglobin A1c Lactic Acid Calcium Phosphorus Magnesium Ferritin 1178.0 H Total Bilirubin AST ALT Lactate Dehydrogenase C-Reactive Protein Albumin Triglycerides Arterial Blood Glucose Arterial Blood Ionized Calcium Urine Creatinine Coronavirus (PCR) Crossmatch 01/24/21 01/24/21 01/24/21 05:05 05:05 05:05 WBC RBC Hgb Hct MCV MCH MCHC RDW Plt Count Lymph % (Auto) Lymph # (Auto) Seg Neutrophils % Seg Neuts % (Manual) Lymphocytes % (Manual) Nucleated RBC % Seg Neutrophils # Seg Neutrophils # Man Lymphocytes # (Manual) Eosinophils # (Manual) INR D-Dimer ABG pH POC ABG pCO2 POC ABG pO2 ABG pO2 ABG HCO3 ABG O2 Saturation ABG Base Excess ABG Hemoglobin ABG Oxyhemoglobin ABG Sodium ABG Potassium ABG Chloride ABG Glucose Oxyhemoglobin Carboxyhemoglobin Sodium 132 L Potassium Chloride 93.1 L Carbon Dioxide 21 L BUN 57 H Creatinine 3.7 H Glucose 133 H POC Glucose Hemoglobin A1c Lactic Acid 2.20 H* Calcium 7.7 L Phosphorus Magnesium Ferritin Total Bilirubin AST ALT Lactate Dehydrogenase 658 H C-Reactive Protein 33.20 H Albumin 2.4 L Triglycerides Arterial Blood Glucose Arterial Blood Ionized Calcium Urine Creatinine Coronavirus (PCR) Crossmatch 01/24/21 01/24/21 01/24/21 05:34 06:00 17:35 WBC RBC Hgb Hct MCV MCH MCHC RDW Plt Count Lymph % (Auto) Lymph # (Auto) Seg Neutrophils % Seg Neuts % (Manual) Lymphocytes % (Manual) Nucleated RBC % Seg Neutrophils # Seg Neutrophils # Man Lymphocytes # (Manual) Eosinophils # (Manual) INR D-Dimer ABG pH POC ABG pCO2 POC ABG pO2 ABG pO2 ABG HCO3 ABG O2 Saturation ABG Base Excess ABG Hemoglobin ABG Oxyhemoglobin ABG Sodium ABG Potassium ABG Chloride ABG Glucose Oxyhemoglobin Carboxyhemoglobin Sodium Potassium Chloride Carbon Dioxide BUN Creatinine Glucose POC Glucose 136 H 137 H Hemoglobin A1c Lactic Acid Calcium Phosphorus Magnesium 2.80 H Ferritin Total Bilirubin AST ALT Lactate Dehydrogenase C-Reactive Protein Albumin Triglycerides Arterial Blood Glucose Arterial Blood Ionized Calcium Urine Creatinine Coronavirus (PCR) Crossmatch 01/25/21 01/25/21 01/25/21 04:15 05:40 05:40 WBC RBC Hgb Hct MCV 95 H MCH 33 H MCHC 35 H RDW Plt Count Lymph % (Auto) Lymph # (Auto) Seg Neutrophils % Seg Neuts % (Manual) 95.0 H Lymphocytes % (Manual) 3.0 L Nucleated RBC % Seg Neutrophils # Seg Neutrophils # Man 7.8 H Lymphocytes # (Manual) 0.2 L Eosinophils # (Manual) INR D-Dimer ABG pH POC ABG pCO2 POC ABG pO2 63.2 L ABG pO2 ABG HCO3 ABG O2 Saturation ABG Base Excess ABG Hemoglobin ABG Oxyhemoglobin 89.6 L ABG Sodium ABG Potassium ABG Chloride ABG Glucose 165 H Oxyhemoglobin Carboxyhemoglobin 0.3 L Sodium Potassium Chloride Carbon Dioxide BUN 67 H Creatinine 3.4 H Glucose 153 H POC Glucose Hemoglobin A1c Lactic Acid Calcium 7.5 L Phosphorus Magnesium Ferritin Total Bilirubin 1.40 H AST 62 H ALT Lactate Dehydrogenase C-Reactive Protein Albumin 2.6 L Triglycerides Arterial Blood Glucose 165 H Arterial Blood Ionized Calcium 4.3 L Urine Creatinine Coronavirus (PCR) Crossmatch 01/25/21 01/25/21 01/25/21 05:59 12:00 17:17 WBC RBC Hgb Hct MCV MCH MCHC RDW Plt Count Lymph % (Auto) Lymph # (Auto) Seg Neutrophils % Seg Neuts % (Manual) Lymphocytes % (Manual) Nucleated RBC % Seg Neutrophils # Seg Neutrophils # Man Lymphocytes # (Manual) Eosinophils # (Manual) INR D-Dimer ABG pH POC ABG pCO2 POC ABG pO2 ABG pO2 ABG HCO3 ABG O2 Saturation ABG Base Excess ABG Hemoglobin ABG Oxyhemoglobin ABG Sodium ABG Potassium ABG Chloride ABG Glucose Oxyhemoglobin Carboxyhemoglobin Sodium Potassium Chloride Carbon Dioxide BUN Creatinine Glucose POC Glucose 140 H 143 H 149 H Hemoglobin A1c Lactic Acid Calcium Phosphorus Magnesium Ferritin Total Bilirubin AST ALT Lactate Dehydrogenase C-Reactive Protein Albumin Triglycerides Arterial Blood Glucose Arterial Blood Ionized Calcium Urine Creatinine Coronavirus (PCR) Crossmatch 01/25/21 01/26/21 01/26/21 23:41 03:43 05:46 WBC RBC Hgb Hct MCV MCH MCHC RDW Plt Count Lymph % (Auto) Lymph # (Auto) Seg Neutrophils % Seg Neuts % (Manual) Lymphocytes % (Manual) Nucleated RBC % Seg Neutrophils # Seg Neutrophils # Man Lymphocytes # (Manual) Eosinophils # (Manual) INR D-Dimer ABG pH POC ABG pCO2 POC ABG pO2 70.0 L ABG pO2 ABG HCO3 ABG O2 Saturation ABG Base Excess ABG Hemoglobin ABG Oxyhemoglobin 91.9 L ABG Sodium ABG Potassium ABG Chloride 109.0 H ABG Glucose 165 H Oxyhemoglobin Carboxyhemoglobin Sodium Potassium Chloride Carbon Dioxide BUN Creatinine Glucose POC Glucose 132 H 161 H Hemoglobin A1c Lactic Acid Calcium Phosphorus Magnesium Ferritin Total Bilirubin AST ALT Lactate Dehydrogenase C-Reactive Protein Albumin Triglycerides Arterial Blood Glucose 165 H Arterial Blood Ionized Calcium 4.5 L Urine Creatinine Coronavirus (PCR) Crossmatch 01/26/21 01/26/21 01/26/21 05:47 05:47 05:47 WBC RBC Hgb Hct 35.3 L MCV 96 H MCH 33 H MCHC RDW Plt Count Lymph % (Auto) Lymph # (Auto) Seg Neutrophils % Seg Neuts % (Manual) 96.0 H Lymphocytes % (Manual) 2.0 L Nucleated RBC % Seg Neutrophils # Seg Neutrophils # Man Lymphocytes # (Manual) 0.1 L Eosinophils # (Manual) INR D-Dimer > 99758 H ABG pH POC ABG pCO2 POC ABG pO2 ABG pO2 ABG HCO3 ABG O2 Saturation ABG Base Excess ABG Hemoglobin ABG Oxyhemoglobin ABG Sodium ABG Potassium ABG Chloride ABG Glucose Oxyhemoglobin Carboxyhemoglobin Sodium Potassium Chloride Carbon Dioxide BUN 57 H Creatinine 2.2 H Glucose 185 H POC Glucose Hemoglobin A1c Lactic Acid Calcium 8.1 L Phosphorus Magnesium Ferritin Total Bilirubin AST ALT Lactate Dehydrogenase C-Reactive Protein Albumin Triglycerides Arterial Blood Glucose Arterial Blood Ionized Calcium Urine Creatinine Coronavirus (PCR) Crossmatch 01/26/21 01/26/21 01/26/21 05:47 05:47 05:47 WBC RBC Hgb Hct MCV MCH MCHC RDW Plt Count Lymph % (Auto) Lymph # (Auto) Seg Neutrophils % Seg Neuts % (Manual) Lymphocytes % (Manual) Nucleated RBC % Seg Neutrophils # Seg Neutrophils # Man Lymphocytes # (Manual) Eosinophils # (Manual) INR D-Dimer ABG pH POC ABG pCO2 POC ABG pO2 ABG pO2 ABG HCO3 ABG O2 Saturation ABG Base Excess ABG Hemoglobin ABG Oxyhemoglobin ABG Sodium ABG Potassium ABG Chloride ABG Glucose Oxyhemoglobin Carboxyhemoglobin Sodium Potassium Chloride 107.1 H Carbon Dioxide BUN 56 H Creatinine 2.2 H Glucose 188 H POC Glucose Hemoglobin A1c Lactic Acid Calcium 8.0 L Phosphorus Magnesium Ferritin 1178.0 H Total Bilirubin 1.50 H AST ALT Lactate Dehydrogenase 588 H C-Reactive Protein 40.10 H Albumin 2.2 L Triglycerides Arterial Blood Glucose Arterial Blood Ionized Calcium Urine Creatinine Coronavirus (PCR) Crossmatch 01/26/21 01/26/21 01/26/21 11:34 18:17 23:20 WBC RBC Hgb Hct MCV MCH MCHC RDW Plt Count Lymph % (Auto) Lymph # (Auto) Seg Neutrophils % Seg Neuts % (Manual) Lymphocytes % (Manual) Nucleated RBC % Seg Neutrophils # Seg Neutrophils # Man Lymphocytes # (Manual) Eosinophils # (Manual) INR D-Dimer ABG pH POC ABG pCO2 POC ABG pO2 ABG pO2 ABG HCO3 ABG O2 Saturation ABG Base Excess ABG Hemoglobin ABG Oxyhemoglobin ABG Sodium ABG Potassium ABG Chloride ABG Glucose Oxyhemoglobin Carboxyhemoglobin Sodium Potassium Chloride Carbon Dioxide BUN Creatinine Glucose POC Glucose 129 H 205 H 155 H Hemoglobin A1c Lactic Acid Calcium Phosphorus Magnesium Ferritin Total Bilirubin AST ALT Lactate Dehydrogenase C-Reactive Protein Albumin Triglycerides Arterial Blood Glucose Arterial Blood Ionized Calcium Urine Creatinine Coronavirus (PCR) Crossmatch 01/27/21 01/27/21 01/27/21 02:45 05:29 05:29 WBC RBC 3.58 L Hgb 11.7 L Hct 34.9 L MCV 97 H MCH 33 H MCHC RDW Plt Count Lymph % (Auto) Lymph # (Auto) Seg Neutrophils % Seg Neuts % (Manual) 88.0 H Lymphocytes % (Manual) 7.0 L Nucleated RBC % Seg Neutrophils # Seg Neutrophils # Man Lymphocytes # (Manual) 0.5 L Eosinophils # (Manual) INR D-Dimer ABG pH 7.319 L POC ABG pCO2 50.7 H POC ABG pO2 63.0 L ABG pO2 ABG HCO3 ABG O2 Saturation ABG Base Excess ABG Hemoglobin ABG Oxyhemoglobin ABG Sodium 145.2 H ABG Potassium 5.1 H ABG Chloride 114.0 H ABG Glucose 178 H Oxyhemoglobin Carboxyhemoglobin Sodium Potassium Chloride Carbon Dioxide BUN Creatinine Glucose POC Glucose Hemoglobin A1c Lactic Acid Calcium Phosphorus Magnesium 4.00 H Ferritin Total Bilirubin AST ALT Lactate Dehydrogenase C-Reactive Protein Albumin Triglycerides Arterial Blood Glucose 178 H Arterial Blood Ionized Calcium Urine Creatinine Coronavirus (PCR) Crossmatch 01/27/21 01/27/2101/27/21 05:29 05:29 05:31 WBC RBC Hgb Hct MCV MCH MCHC RDW Plt Count Lymph % (Auto) Lymph # (Auto) Seg Neutrophils % Seg Neuts % (Manual) Lymphocytes % (Manual) Nucleated RBC % Seg Neutrophils # Seg Neutrophils # Man Lymphocytes # (Manual) Eosinophils # (Manual) INR D-Dimer ABG pH POC ABG pCO2 POC ABG pO2 ABG pO2 ABG HCO3 ABG O2 Saturation ABG Base Excess ABG Hemoglobin ABG Oxyhemoglobin ABG Sodium ABG Potassium ABG Chloride ABG Glucose Oxyhemoglobin Carboxyhemoglobin Sodium Potassium 5.2 H Chloride 109.6 H Carbon Dioxide BUN 67 H Creatinine 2.8 H Glucose 195 H POC Glucose 176 H Hemoglobin A1c Lactic Acid Calcium 7.9 L Phosphorus Magnesium Ferritin Total Bilirubin AST ALT Lactate Dehydrogenase C-Reactive Protein Albumin Triglycerides 160 H Arterial Blood Glucose Arterial Blood Ionized Calcium Urine Creatinine Coronavirus (PCR) Crossmatch 01/27/21 01/27/21 01/27/21 11:27 18:08 23:30 WBC RBC Hgb Hct MCV MCH MCHC RDW Plt Count Lymph % (Auto) Lymph # (Auto) Seg Neutrophils % Seg Neuts % (Manual) Lymphocytes % (Manual) Nucleated RBC % Seg Neutrophils # Seg Neutrophils # Man Lymphocytes # (Manual) Eosinophils # (Manual) INR D-Dimer ABG pH POC ABG pCO2 POC ABG pO2 ABG pO2 ABG HCO3 ABG O2 Saturation ABG Base Excess ABG Hemoglobin ABG Oxyhemoglobin ABG Sodium ABG Potassium ABG Chloride ABG Glucose Oxyhemoglobin Carboxyhemoglobin Sodium Potassium Chloride Carbon Dioxide BUN Creatinine Glucose POC Glucose 189 H 212 H 175 H Hemoglobin A1c Lactic Acid Calcium Phosphorus Magnesium Ferritin Total Bilirubin AST ALT Lactate Dehydrogenase C-Reactive Protein Albumin Triglycerides Arterial Blood Glucose Arterial Blood Ionized Calcium Urine Creatinine Coronavirus (PCR) Crossmatch 01/28/21 01/28/21 01/28/21 03:58 04:00 04:00 WBC RBC Hgb Hct MCV MCH MCHC RDW Plt Count Lymph % (Auto) Lymph # (Auto) Seg Neutrophils % Seg Neuts % (Manual) Lymphocytes % (Manual) Nucleated RBC % Seg Neutrophils # Seg Neutrophils # Man Lymphocytes # (Manual) Eosinophils # (Manual) INR D-Dimer > 18085 H ABG pH POC ABG pCO2 POC ABG pO2 52.9 L ABG pO2 ABG HCO3 ABG O2 Saturation ABG Base Excess ABG Hemoglobin ABG Oxyhemoglobin 84.1 L ABG Sodium 148.9 H ABG Potassium ABG Chloride 117.0 H ABG Glucose 194 H Oxyhemoglobin Carboxyhemoglobin Sodium Potassium Chloride Carbon Dioxide BUN Creatinine Glucose POC Glucose Hemoglobin A1c Lactic Acid Calcium Phosphorus Magnesium Ferritin Total Bilirubin AST ALT Lactate Dehydrogenase 679 H C-Reactive Protein 17.10 H Albumin Triglycerides Arterial Blood Glucose 194 H Arterial Blood Ionized Calcium Urine Creatinine Coronavirus (PCR) Crossmatch 01/28/21 01/28/21 01/28/21 04:00 05:00 06:00 WBC RBC 3.59 L Hgb 11.6 L Hct 34.8 L MCV 97 H MCH MCHC RDW Plt Count Lymph % (Auto) Lymph # (Auto) Seg Neutrophils % Seg Neuts % (Manual) 96.0 H Lymphocytes % (Manual) 3.0 L Nucleated RBC % Seg Neutrophils # Seg Neutrophils # Man Lymphocytes # (Manual) 0.2 L Eosinophils # (Manual) INR D-Dimer ABG pH POC ABG pCO2 POC ABG pO2 ABG pO2 ABG HCO3 ABG O2 Saturation ABG Base Excess ABG Hemoglobin ABG Oxyhemoglobin ABG Sodium ABG Potassium ABG Chloride ABG Glucose Oxyhemoglobin Carboxyhemoglobin Sodium Potassium Chloride Carbon Dioxide BUN Creatinine Glucose POC Glucose 159 H Hemoglobin A1c Lactic Acid Calcium Phosphorus Magnesium Ferritin 798.0 H Total Bilirubin AST ALT Lactate Dehydrogenase C-Reactive Protein Albumin Triglycerides Arterial Blood Glucose Arterial Blood Ionized Calcium Urine Creatinine Coronavirus (PCR) Crossmatch 01/28/21 01/28/21 01/28/21 06:00 06:00 08:12 WBC RBC Hgb Hct MCV MCH MCHC RDW Plt Count Lymph % (Auto) Lymph # (Auto) Seg Neutrophils % Seg Neuts % (Manual) Lymphocytes % (Manual) Nucleated RBC % Seg Neutrophils # Seg Neutrophils # Man Lymphocytes # (Manual) Eosinophils # (Manual) INR D-Dimer ABG pH POC ABG pCO2 POC ABG pO2 ABG pO2 ABG HCO3 ABG O2 Saturation ABG Base Excess ABG Hemoglobin ABG Oxyhemoglobin ABG Sodium ABG Potassium ABG Chloride ABG Glucose Oxyhemoglobin Carboxyhemoglobin Sodium Potassium Chloride 111.9 H Carbon Dioxide BUN 59 H Creatinine 2.2 H Glucose 189 H POC Glucose 181 H Hemoglobin A1c Lactic Acid Calcium 8.1 L Phosphorus Magnesium 3.20 H Ferritin Total Bilirubin AST ALT Lactate Dehydrogenase C-Reactive Protein Albumin Triglycerides Arterial Blood Glucose Arterial Blood Ionized Calcium Urine Creatinine Coronavirus (PCR) Crossmatch 01/28/21 01/28/21 01/28/21 12:03 16:43 23:51 WBC RBC Hgb Hct MCV MCH MCHC RDW Plt Count Lymph % (Auto) Lymph # (Auto) Seg Neutrophils % Seg Neuts % (Manual) Lymphocytes % (Manual) Nucleated RBC % Seg Neutrophils # Seg Neutrophils # Man Lymphocytes # (Manual) Eosinophils # (Manual) INR D-Dimer ABG pH POC ABG pCO2 POC ABG pO2 ABG pO2 ABG HCO3 ABG O2 Saturation ABG Base Excess ABG Hemoglobin ABG Oxyhemoglobin ABG Sodium ABG Potassium ABG Chloride ABG Glucose Oxyhemoglobin Carboxyhemoglobin Sodium Potassium Chloride Carbon Dioxide BUN Creatinine Glucose POC Glucose 164 H 198 H 196 H Hemoglobin A1c Lactic Acid Calcium Phosphorus Magnesium Ferritin Total Bilirubin AST ALT Lactate Dehydrogenase C-Reactive Protein Albumin Triglycerides Arterial Blood Glucose Arterial Blood Ionized Calcium Urine Creatinine Coronavirus (PCR) Crossmatch 01/29/21 01/29/21 01/29/21 05:00 05:23 06:00 WBC RBC Hgb Hct MCV MCH MCHC RDW Plt Count Lymph % (Auto) Lymph # (Auto) Seg Neutrophils % Seg Neuts % (Manual) Lymphocytes % (Manual) Nucleated RBC % Seg Neutrophils # Seg Neutrophils # Man Lymphocytes # (Manual) Eosinophils # (Manual) INR D-Dimer ABG pH 7.119 L POC ABG pCO2 87.1 H POC ABG pO2 ABG pO2 ABG HCO3 ABG O2 Saturation ABG Base Excess ABG Hemoglobin ABG Oxyhemoglobin ABG Sodium 152.5 H ABG Potassium 5.7 H ABG Chloride 120.0 H ABG Glucose 217 H Oxyhemoglobin Carboxyhemoglobin Sodium 151 H Potassium 5.9 H D Chloride 117.8 H Carbon Dioxide BUN 54 H Creatinine 2.2 H Glucose 208 H POC Glucose 180 H Hemoglobin A1c Lactic Acid Calcium 7.9 L Phosphorus Magnesium Ferritin Total Bilirubin AST ALT Lactate Dehydrogenase C-Reactive Protein Albumin Triglycerides Arterial Blood Glucose 217 H Arterial Blood Ionized Calcium Urine Creatinine Coronavirus (PCR) Crossmatch 01/29/21 01/29/21 01/29/21 12:29 17:28 18:05 WBC RBC Hgb Hct MCV MCH MCHC RDW Plt Count Lymph % (Auto) Lymph # (Auto) Seg Neutrophils % Seg Neuts % (Manual) Lymphocytes % (Manual) Nucleated RBC % Seg Neutrophils # Seg Neutrophils # Man Lymphocytes # (Manual) Eosinophils # (Manual) INR D-Dimer ABG pH POC ABG pCO2 POC ABG pO2 ABG pO2 ABG HCO3 ABG O2 Saturation ABG Base Excess ABG Hemoglobin ABG Oxyhemoglobin ABG Sodium ABG Potassium ABG Chloride ABG Glucose Oxyhemoglobin Carboxyhemoglobin Sodium 151 H Potassium 5.5 H Chloride 118.2 H Carbon Dioxide BUN 52 H Creatinine 2.2 H Glucose 224 H POC Glucose 181 H 203 H Hemoglobin A1c Lactic Acid Calcium 8.0 L Phosphorus Magnesium Ferritin Total Bilirubin AST ALT Lactate Dehydrogenase C-Reactive Protein Albumin Triglycerides Arterial Blood Glucose Arterial Blood Ionized Calcium Urine Creatinine Coronavirus (PCR) Crossmatch 01/29/21 01/29/21 01/29/21 18:13 23:34 Unknown WBC RBC Hgb Hct MCV 101 H MCH MCHC RDW 15.7 H Plt Count Lymph % (Auto) Lymph # (Auto) Seg Neutrophils % Seg Neuts % (Manual) 95.0 H Lymphocytes % (Manual) 3.0 L Nucleated RBC % Seg Neutrophils # Seg Neutrophils # Man 8.0 H Lymphocytes # (Manual) 0.3 L Eosinophils # (Manual) INR D-Dimer ABG pH 7.223 L POC ABG pCO2 64.8 H POC ABG pO2 63.6 L ABG pO2 ABG HCO3 ABG O2 Saturation ABG Base Excess ABG Hemoglobin ABG Oxyhemoglobin 89.4 L ABG Sodium 152.9 H ABG Potassium 5.3 H ABG Chloride 121.0 H ABG Glucose 227 H Oxyhemoglobin Carboxyhemoglobin Sodium Potassium Chloride Carbon Dioxide BUN Creatinine Glucose POC Glucose 198 H Hemoglobin A1c Lactic Acid Calcium Phosphorus Magnesium Ferritin Total Bilirubin AST ALT Lactate Dehydrogenase C-Reactive Protein Albumin Triglycerides Arterial Blood Glucose 227 H Arterial Blood Ionized Calcium Urine Creatinine Coronavirus (PCR) Crossmatch 01/30/21 01/30/21 01/30/21 04:00 04:00 04:00 WBC RBC Hgb Hct MCV MCH MCHC RDW Plt Count Lymph % (Auto) Lymph # (Auto) Seg Neutrophils % Seg Neuts % (Manual) Lymphocytes % (Manual) Nucleated RBC % Seg Neutrophils # Seg Neutrophils # Man Lymphocytes # (Manual) Eosinophils # (Manual) INR D-Dimer > 85527 H ABG pH POC ABG pCO2 POC ABG pO2 ABG pO2 ABG HCO3 ABG O2 Saturation ABG Base Excess ABG Hemoglobin ABG Oxyhemoglobin ABG Sodium ABG Potassium ABG Chloride ABG Glucose Oxyhemoglobin Carboxyhemoglobin Sodium Potassium Chloride Carbon Dioxide BUN Creatinine Glucose 234 H POC Glucose Hemoglobin A1c Lactic Acid Calcium Phosphorus Magnesium Ferritin 763.9 H Total Bilirubin AST ALT Lactate Dehydrogenase 424 H C-Reactive Protein 23.90 H Albumin Triglycerides Arterial Blood Glucose Arterial Blood Ionized Calcium Urine Creatinine Coronavirus (PCR) Crossmatch 01/30/21 01/30/21 01/30/21 04:24 05:00 05:16 WBC RBC 3.57 L Hgb 11.3 L Hct 35.4 L MCV 99 H MCH MCHC RDW 15.6 H Plt Count Lymph % (Auto) Lymph # (Auto) Seg Neutrophils % Seg Neuts % (Manual) 97.0 H Lymphocytes % (Manual) 1.0 L Nucleated RBC % Seg Neutrophils # Seg Neutrophils # Man 8.6 H Lymphocytes # (Manual) 0.1 L Eosinophils # (Manual) INR D-Dimer ABG pH 7.235 L POC ABG pCO2 69.7 H POC ABG pO2 61.0 L ABG pO2 ABG HCO3 ABG O2 Saturation ABG Base Excess ABG Hemoglobin ABG Oxyhemoglobin 89 L ABG Sodium 154.2 H ABG Potassium 5.4 H ABG Chloride 121.0 H ABG Glucose 247 H Oxyhemoglobin Carboxyhemoglobin Sodium Potassium Chloride Carbon Dioxide BUN Creatinine Glucose POC Glucose 238 H Hemoglobin A1c Lactic Acid Calcium Phosphorus Magnesium Ferritin Total Bilirubin AST ALT Lactate Dehydrogenase C-Reactive Protein Albumin Triglycerides Arterial Blood Glucose 247 H Arterial Blood Ionized Calcium Urine Creatinine Coronavirus (PCR) Crossmatch 01/30/21 01/30/21 01/30/21 06:00 11:28 12:00 WBC RBC Hgb Hct MCV MCH MCHC RDW Plt Count Lymph % (Auto) Lymph # (Auto) Seg Neutrophils % Seg Neuts % (Manual) Lymphocytes % (Manual) Nucleated RBC % Seg Neutrophils # Seg Neutrophils # Man Lymphocytes # (Manual) Eosinophils # (Manual) INR D-Dimer ABG pH POC ABG pCO2 POC ABG pO2 ABG pO2 ABG HCO3 ABG O2 Saturation ABG Base Excess ABG Hemoglobin ABG Oxyhemoglobin ABG Sodium ABG Potassium ABG Chloride ABG Glucose Oxyhemoglobin Carboxyhemoglobin Sodium 152 H Potassium 5.3 H Chloride 120.5 H Carbon Dioxide BUN 50 H Creatinine 2.3 H Glucose 239 H POC Glucose 153 H Hemoglobin A1c Lactic Acid Calcium 8.2 L Phosphorus Magnesium 2.60 H Ferritin Total Bilirubin AST ALT Lactate Dehydrogenase C-Reactive Protein Albumin Triglycerides 293 H Arterial Blood Glucose Arterial Blood Ionized Calcium Urine Creatinine 53.0 H Coronavirus (PCR) Crossmatch 01/30/21 01/30/21 01/31/21 18:49 23:06 04:00 WBC RBC Hgb Hct MCV MCH MCHC RDW Plt Count Lymph % (Auto) Lymph # (Auto) Seg Neutrophils % Seg Neuts % (Manual) Lymphocytes % (Manual) Nucleated RBC % Seg Neutrophils # Seg Neutrophils # Man Lymphocytes # (Manual) Eosinophils # (Manual) INR D-Dimer ABG pH POC ABG pCO2 POC ABG pO2 ABG pO2 ABG HCO3 ABG O2 Saturation ABG Base Excess ABG Hemoglobin ABG Oxyhemoglobin ABG Sodium ABG Potassium ABG Chloride ABG Glucose Oxyhemoglobin Carboxyhemoglobin Sodium 156 H Potassium 5.9 H Chloride 122.6 H Carbon Dioxide BUN 61 H Creatinine 3.2 H Glucose 205 H POC Glucose 220 H 192 H Hemoglobin A1c Lactic Acid Calcium 8.0 L Phosphorus Magnesium Ferritin Total Bilirubin AST ALT Lactate Dehydrogenase C-Reactive Protein Albumin Triglycerides Arterial Blood Glucose Arterial Blood Ionized Calcium Urine Creatinine Coronavirus (PCR) Crossmatch 01/31/21 01/31/21 01/31/21 04:40 05:17 11:33 WBC RBC Hgb Hct MCV MCH MCHC RDW Plt Count Lymph % (Auto) Lymph # (Auto) Seg Neutrophils % Seg Neuts % (Manual) Lymphocytes % (Manual) Nucleated RBC % Seg Neutrophils # Seg Neutrophils # Man Lymphocytes # (Manual) Eosinophils # (Manual) INR D-Dimer ABG pH 7.161 L* POC ABG pCO2 POC ABG pO2 ABG pO2 142.2 H ABG HCO3 28.3 H ABG O2 Saturation ABG Base Excess -3.2 L ABG Hemoglobin ABG Oxyhemoglobin ABG Sodium ABG Potassium ABG Chloride ABG Glucose Oxyhemoglobin Carboxyhemoglobin Sodium Potassium Chloride Carbon Dioxide BUN Creatinine Glucose POC Glucose 200 H 167 H Hemoglobin A1c Lactic Acid Calcium Phosphorus Magnesium Ferritin Total Bilirubin AST ALT Lactate Dehydrogenase C-Reactive Protein Albumin Triglycerides Arterial Blood Glucose Arterial Blood Ionized Calcium Urine Creatinine Coronavirus (PCR) Crossmatch 01/31/21 01/31/21 01/31/21 14:00 17:10 23:24 WBC RBC Hgb Hct MCV MCH MCHC RDW Plt Count Lymph % (Auto) Lymph # (Auto) Seg Neutrophils % Seg Neuts % (Manual) Lymphocytes % (Manual) Nucleated RBC % Seg Neutrophils # Seg Neutrophils # Man Lymphocytes # (Manual) Eosinophils # (Manual) INR D-Dimer ABG pH 7.205 L POC ABG pCO2 POC ABG pO2 ABG pO2 90.9 H ABG HCO3 26.5 H ABG O2 Saturation ABG Base Excess -2.7 L ABG Hemoglobin 12.3 L ABG Oxyhemoglobin ABG Sodium ABG Potassium ABG Chloride ABG Glucose Oxyhemoglobin 93.9 L Carboxyhemoglobin Sodium Potassium Chloride Carbon Dioxide BUN Creatinine Glucose POC Glucose 190 H 203 H Hemoglobin A1c Lactic Acid Calcium Phosphorus Magnesium Ferritin Total Bilirubin AST ALT Lactate Dehydrogenase C-Reactive Protein Albumin Triglycerides Arterial Blood Glucose Arterial Blood Ionized Calcium Urine Creatinine Coronavirus (PCR) Crossmatch 02/01/21 02/01/21 02/01/21 05:15 06:22 10:20 WBC RBC Hgb Hct MCV MCH MCHC RDW Plt Count Lymph % (Auto) Lymph # (Auto) Seg Neutrophils % Seg Neuts % (Manual) Lymphocytes % (Manual) Nucleated RBC % Seg Neutrophils # Seg Neutrophils # Man Lymphocytes # (Manual) Eosinophils # (Manual) INR D-Dimer ABG pH 6.920 L* 7.116 L* POC ABG pCO2 POC ABG pO2 ABG pO2 102.9 H 113.1 H ABG HCO3 28.2 H ABG O2 Saturation 92.9 L ABG Base Excess -6.9 L -5.8 L ABG Hemoglobin 11.6 L 9.5 L ABG Oxyhemoglobin ABG Sodium ABG Potassium ABG Chloride ABG Glucose Oxyhemoglobin 90.5 L 94.6 L Carboxyhemoglobin Sodium Potassium Chloride Carbon Dioxide BUN Creatinine Glucose POC Glucose 221 H Hemoglobin A1c Lactic Acid Calcium Phosphorus Magnesium Ferritin Total Bilirubin AST ALT Lactate Dehydrogenase C-Reactive Protein Albumin Triglycerides Arterial Blood Glucose Arterial Blood Ionized Calcium Urine Creatinine Coronavirus (PCR) Crossmatch 02/01/21 02/01/21 02/01/21 11:12 12:35 16:00 WBC RBC Hgb Hct MCV MCH MCHC RDW Plt Count Lymph % (Auto) Lymph # (Auto) Seg Neutrophils % Seg Neuts % (Manual) Lymphocytes % (Manual) Nucleated RBC % Seg Neutrophils # Seg Neutrophils # Man Lymphocytes # (Manual) Eosinophils # (Manual) INR D-Dimer ABG pH 7.155 L* POC ABG pCO2 POC ABG pO2 ABG pO2 94.6 H ABG HCO3 ABG O2 Saturation ABG Base Excess -6.5 L ABG Hemoglobin 13.1 L ABG Oxyhemoglobin ABG Sodium ABG Potassium ABG Chloride ABG Glucose Oxyhemoglobin 93.7 L Carboxyhemoglobin Sodium 155 H Potassium 5.1 H Chloride 120.5 H Carbon Dioxide BUN 90 H Creatinine 6.1 H D Glucose 238 H POC Glucose 207 H Hemoglobin A1c Lactic Acid Calcium 7.4 L Phosphorus Magnesium Ferritin Total Bilirubin AST ALT Lactate Dehydrogenase C-Reactive Protein Albumin Triglycerides Arterial Blood Glucose Arterial Blood Ionized Calcium Urine Creatinine Coronavirus (PCR) Crossmatch 02/01/21 02/01/21 02/02/21 17:10 23:47 04:04 WBC RBC 3.02 L Hgb 9.8 L Hct 30.7 L MCV 102 H MCH MCHC RDW 15.6 H Plt Count Lymph % (Auto) 4.2 L Lymph # (Auto) 0.3 L Seg Neutrophils % Seg Neuts % (Manual) Lymphocytes % (Manual) Nucleated RBC % Seg Neutrophils # Seg Neutrophils # Man Lymphocytes # (Manual) Eosinophils # (Manual) INR D-Dimer ABG pH POC ABG pCO2 POC ABG pO2 ABG pO2 ABG HCO3 ABG O2 Saturation ABG Base Excess ABG Hemoglobin ABG Oxyhemoglobin ABG Sodium ABG Potassium ABG Chloride ABG Glucose Oxyhemoglobin Carboxyhemoglobin Sodium Potassium Chloride Carbon Dioxide BUN Creatinine Glucose POC Glucose 238 H 235 H Hemoglobin A1c Lactic Acid Calcium Phosphorus Magnesium Ferritin Total Bilirubin AST ALT Lactate Dehydrogenase C-Reactive Protein Albumin Triglycerides Arterial Blood Glucose Arterial Blood Ionized Calcium Urine Creatinine Coronavirus (PCR) Crossmatch 02/02/21 02/02/21 02/02/21 05:18 05:35 11:28 WBC RBC Hgb Hct MCV MCH MCHC RDW Plt Count Lymph % (Auto) Lymph # (Auto) Seg Neutrophils % Seg Neuts % (Manual) Lymphocytes % (Manual) Nucleated RBC % Seg Neutrophils # Seg Neutrophils # Man Lymphocytes # (Manual) Eosinophils # (Manual) INR D-Dimer ABG pH 7.195 L* POC ABG pCO2 POC ABG pO2 ABG pO2 72.5 L ABG HCO3 ABG O2 Saturation 91.2 L ABG Base Excess -5.3 L ABG Hemoglobin 6.0 L ABG Oxyhemoglobin ABG Sodium ABG Potassium ABG Chloride ABG Glucose Oxyhemoglobin 89.1 L Carboxyhemoglobin Sodium Potassium Chloride 110.4 H Carbon Dioxide BUN 92 H Creatinine Glucose POC Glucose 239 H Hemoglobin A1c Lactic Acid Calcium Phosphorus Magnesium Ferritin Total Bilirubin AST ALT Lactate Dehydrogenase C-Reactive Protein Albumin Triglycerides Arterial Blood Glucose Arterial Blood Ionized Calcium Urine Creatinine Coronavirus (PCR) Crossmatch 02/02/21 02/02/21 02/02/21 11:53 16:00 18:04 WBC RBC Hgb Hct MCV MCH MCHC RDW Plt Count Lymph % (Auto) Lymph # (Auto) Seg Neutrophils % Seg Neuts % (Manual) Lymphocytes % (Manual) Nucleated RBC % Seg Neutrophils # Seg Neutrophils # Man Lymphocytes # (Manual) Eosinophils # (Manual) INR D-Dimer ABG pH POC ABG pCO2 POC ABG pO2 ABG pO2 ABG HCO3 ABG O2 Saturation ABG Base Excess ABG Hemoglobin ABG Oxyhemoglobin ABG Sodium ABG Potassium ABG Chloride ABG Glucose Oxyhemoglobin Carboxyhemoglobin Sodium Potassium Chloride Carbon Dioxide BUN Creatinine Glucose POC Glucose 248 H 199 H Hemoglobin A1c 6.3 H Lactic Acid Calcium Phosphorus Magnesium Ferritin Total Bilirubin AST ALT Lactate Dehydrogenase C-Reactive Protein Albumin Triglycerides Arterial Blood Glucose Arterial Blood Ionized Calcium Urine Creatinine Coronavirus (PCR) Crossmatch 02/02/21 02/03/21 02/03/21 23:31 03:12 04:10 WBC RBC 3.06 L Hgb 9.7 L Hct 30.4 L MCV 99 H MCH MCHC RDW 15.3 H Plt Count Lymph % (Auto) 6.1 L Lymph # (Auto) 0.5 L Seg Neutrophils % 86.1 H Seg Neuts % (Manual) Lymphocytes % (Manual) Nucleated RBC % Seg Neutrophils # Seg Neutrophils # Man Lymphocytes # (Manual) Eosinophils # (Manual) INR D-Dimer ABG pH 7.199 L POC ABG pCO2 48.3 H POC ABG pO2 68.3 L ABG pO2 ABG HCO3 ABG O2 Saturation ABG Base Excess ABG Hemoglobin 10.2 L ABG Oxyhemoglobin 89.2 L ABG Sodium 155.0 H ABG Potassium 4.6 H ABG Chloride 121.0 H ABG Glucose 166 H Oxyhemoglobin Carboxyhemoglobin 0.3 L Sodium Potassium Chloride Carbon Dioxide BUN Creatinine Glucose POC Glucose 200 H Hemoglobin A1c Lactic Acid Calcium Phosphorus Magnesium Ferritin Total Bilirubin AST ALT Lactate Dehydrogenase C-Reactive Protein Albumin Triglycerides Arterial Blood Glucose 166 H Arterial Blood Ionized Calcium 4.1 L Urine Creatinine Coronavirus (PCR) Crossmatch 02/03/21 02/03/21 02/03/21 04:10 05:34 11:51 WBC RBC Hgb Hct MCV MCH MCHC RDW Plt Count Lymph % (Auto) Lymph # (Auto) Seg Neutrophils % Seg Neuts % (Manual) Lymphocytes % (Manual) Nucleated RBC % Seg Neutrophils # Seg Neutrophils # Man Lymphocytes # (Manual) Eosinophils # (Manual) INR D-Dimer ABG pH POC ABG pCO2 POC ABG pO2 ABG pO2 ABG HCO3 ABG O2 Saturation ABG Base Excess ABG Hemoglobin ABG Oxyhemoglobin ABG Sodium ABG Potassium ABG Chloride ABG Glucose Oxyhemoglobin Carboxyhemoglobin Sodium 154 H D Potassium Chloride 116.7 H Carbon Dioxide 20 L BUN 130 H Creatinine 9.2 H D Glucose 160 H POC Glucose 130 H 154 H Hemoglobin A1c Lactic Acid Calcium 6.7 L Phosphorus 8.60 H Magnesium Ferritin Total Bilirubin AST ALT Lactate Dehydrogenase C-Reactive Protein Albumin Triglycerides Arterial Blood Glucose Arterial Blood Ionized Calcium Urine Creatinine Coronavirus (PCR) Crossmatch 02/03/21 02/03/21 02/04/21 16:49 23:22 03:48 WBC RBC Hgb Hct MCV MCH MCHC RDW Plt Count Lymph % (Auto) Lymph # (Auto) Seg Neutrophils % Seg Neuts % (Manual) Lymphocytes % (Manual) Nucleated RBC % Seg Neutrophils # Seg Neutrophils # Man Lymphocytes # (Manual) Eosinophils # (Manual) INR D-Dimer ABG pH 7.201 L POC ABG pCO2 54.5 H POC ABG pO2 74.0 L ABG pO2 ABG HCO3 ABG O2 Saturation ABG Base Excess ABG Hemoglobin 9.7 L ABG Oxyhemoglobin 91.1 L ABG Sodium 146.2 H ABG Potassium ABG Chloride 114.0 H ABG Glucose 155 H Oxyhemoglobin Carboxyhemoglobin Sodium Potassium Chloride Carbon Dioxide BUN Creatinine Glucose POC Glucose 164 H 152 H Hemoglobin A1c Lactic Acid Calcium Phosphorus Magnesium Ferritin Total Bilirubin AST ALT Lactate Dehydrogenase C-Reactive Protein Albumin Triglycerides Arterial Blood Glucose 155 H Arterial Blood Ionized Calcium 3.9 L Urine Creatinine Coronavirus (PCR) Crossmatch 02/04/21 02/04/21 02/04/21 04:45 04:45 04:45 WBC RBC 2.75 L Hgb 9.1 L Hct 26.9 L MCV 98 H MCH 33 H MCHC RDW Plt Count Lymph % (Auto) 6.8 L Lymph # (Auto) 0.5 L Seg Neutrophils % 87.2 H Seg Neuts % (Manual) Lymphocytes % (Manual) Nucleated RBC % Seg Neutrophils # Seg Neutrophils # Man Lymphocytes # (Manual) Eosinophils # (Manual) INR D-Dimer ABG pH POC ABG pCO2 POC ABG pO2 ABG pO2 ABG HCO3 ABG O2 Saturation ABG Base Excess ABG Hemoglobin ABG Oxyhemoglobin ABG Sodium ABG Potassium ABG Chloride ABG Glucose Oxyhemoglobin Carboxyhemoglobin Sodium 149 H Potassium Chloride 111.5 H Carbon Dioxide BUN 99 H Creatinine 8.5 H Glucose 139 H POC Glucose Hemoglobin A1c Lactic Acid Calcium 6.8 L Phosphorus 8.40 H Magnesium Ferritin Total Bilirubin AST ALT Lactate Dehydrogenase C-Reactive Protein Albumin Triglycerides Arterial Blood Glucose Arterial Blood Ionized Calcium Urine Creatinine Coronavirus (PCR) Crossmatch 02/04/21 02/04/21 02/04/21 06:05 11:44 18:00 WBC RBC Hgb Hct MCV MCH MCHC RDW Plt Count Lymph % (Auto) Lymph # (Auto) Seg Neutrophils % Seg Neuts % (Manual) Lymphocytes % (Manual) Nucleated RBC % Seg Neutrophils # Seg Neutrophils # Man Lymphocytes # (Manual) Eosinophils # (Manual) INR D-Dimer ABG pH POC ABG pCO2 POC ABG pO2 ABG pO2 ABG HCO3 ABG O2 Saturation ABG Base Excess ABG Hemoglobin ABG Oxyhemoglobin ABG Sodium ABG Potassium ABG Chloride ABG Glucose Oxyhemoglobin Carboxyhemoglobin Sodium Potassium Chloride Carbon Dioxide BUN Creatinine Glucose POC Glucose 138 H 129 H 163 H Hemoglobin A1c Lactic Acid Calcium Phosphorus Magnesium Ferritin Total Bilirubin AST ALT Lactate Dehydrogenase C-Reactive Protein Albumin Triglycerides Arterial Blood Glucose Arterial Blood Ionized Calcium Urine Creatinine Coronavirus (PCR) Crossmatch 02/04/21 02/05/21 02/05/21 23:48 01:50 01:50 WBC RBC 2.43 L Hgb 8.3 L Hct 23.6 L MCV 97 H MCH 34 H MCHC 35 H RDW Plt Count 137 L Lymph % (Auto) 8.4 L Lymph # (Auto) 0.6 L Seg Neutrophils % 86.1 H Seg Neuts % (Manual) Lymphocytes % (Manual) Nucleated RBC % Seg Neutrophils # Seg Neutrophils # Man Lymphocytes # (Manual) Eosinophils # (Manual) INR D-Dimer ABG pH POC ABG pCO2 POC ABG pO2 ABG pO2 ABG HCO3 ABG O2 Saturation ABG Base Excess ABG Hemoglobin ABG Oxyhemoglobin ABG Sodium ABG Potassium ABG Chloride ABG Glucose Oxyhemoglobin Carboxyhemoglobin Sodium Potassium Chloride Carbon Dioxide BUN Creatinine Glucose POC Glucose 157 H Hemoglobin A1c Lactic Acid Calcium Phosphorus 5.60 H D Magnesium Ferritin Total Bilirubin AST ALT Lactate Dehydrogenase C-Reactive Protein Albumin Triglycerides Arterial Blood Glucose Arterial Blood Ionized Calcium Urine Creatinine Coronavirus (PCR) Crossmatch 02/05/21 02/05/21 02/05/21 03:44 05:27 09:15 WBC RBC Hgb Hct MCV MCH MCHC RDW Plt Count Lymph % (Auto) Lymph # (Auto) Seg Neutrophils % Seg Neuts % (Manual) Lymphocytes % (Manual) Nucleated RBC % Seg Neutrophils # Seg Neutrophils # Man Lymphocytes # (Manual) Eosinophils # (Manual) INR D-Dimer ABG pH 7.202 L POC ABG pCO2 63.7 H POC ABG pO2 69.0 L ABG pO2 ABG HCO3 ABG O2 Saturation ABG Base Excess ABG Hemoglobin 9.4 L ABG Oxyhemoglobin ABG Sodium ABG Potassium ABG Chloride 108.0 H ABG Glucose 186 H Oxyhemoglobin Carboxyhemoglobin Sodium Potassium Chloride Carbon Dioxide BUN 78 H Creatinine 8.0 H Glucose 163 H POC Glucose 157 H Hemoglobin A1c Lactic Acid Calcium 6.3 L Phosphorus Magnesium Ferritin Total Bilirubin AST ALT Lactate Dehydrogenase C-Reactive Protein Albumin Triglycerides Arterial Blood Glucose 186 H Arterial Blood Ionized Calcium 3.9 L Urine Creatinine Coronavirus (PCR) Crossmatch 02/05/21 02/05/21 02/05/21 11:47 17:39 23:40 WBC RBC Hgb Hct MCV MCH MCHC RDW Plt Count Lymph % (Auto) Lymph # (Auto) Seg Neutrophils % Seg Neuts % (Manual) Lymphocytes % (Manual) Nucleated RBC % Seg Neutrophils # Seg Neutrophils # Man Lymphocytes # (Manual) Eosinophils # (Manual) INR D-Dimer ABG pH 7.273 L POC ABG pCO2 62.1 H POC ABG pO2 72.0 L ABG pO2 ABG HCO3 ABG O2 Saturation ABG Base Excess ABG Hemoglobin 9.1 L ABG Oxyhemoglobin 91.3 L ABG Sodium ABG Potassium 3.1 L ABG Chloride ABG Glucose 125 H Oxyhemoglobin Carboxyhemoglobin Sodium Potassium Chloride Carbon Dioxide BUN Creatinine Glucose POC Glucose 126 H 126 H Hemoglobin A1c Lactic Acid Calcium Phosphorus Magnesium Ferritin Total Bilirubin AST ALT Lactate Dehydrogenase C-Reactive Protein Albumin Triglycerides Arterial Blood Glucose 125 H Arterial Blood Ionized Calcium 4.0 L Urine Creatinine Coronavirus (PCR) Crossmatch 02/06/21 02/06/21 02/06/21 04:30 04:57 09:45 WBC RBC Hgb Hct MCV MCH MCHC RDW Plt Count Lymph % (Auto) Lymph # (Auto) Seg Neutrophils % Seg Neuts % (Manual) Lymphocytes % (Manual) Nucleated RBC % Seg Neutrophils # Seg Neutrophils # Man Lymphocytes # (Manual) Eosinophils # (Manual) INR D-Dimer ABG pH 7.159 L 7.138 L* POC ABG pCO2 76.3 H POC ABG pO2 66.9 L ABG pO2 ABG HCO3 ABG O2 Saturation 93.4 L ABG Base Excess -6.0 L ABG Hemoglobin 11.2 L 11.7 L ABG Oxyhemoglobin 88.2 L ABG Sodium ABG Potassium ABG Chloride ABG Glucose 134 H Oxyhemoglobin 91.2 L Carboxyhemoglobin Sodium Potassium Chloride Carbon Dioxide BUN Creatinine Glucose POC Glucose 124 H Hemoglobin A1c Lactic Acid Calcium Phosphorus Magnesium Ferritin Total Bilirubin AST ALT Lactate Dehydrogenase C-Reactive Protein Albumin Triglycerides Arterial Blood Glucose 134 H Arterial Blood Ionized Calcium 3.9 L Urine Creatinine Coronavirus (PCR) Crossmatch 02/06/21 02/06/21 02/06/21 11:11 17:00 17:00 WBC RBC Hgb Hct MCV MCH MCHC RDW Plt Count Lymph % (Auto) Lymph # (Auto) Seg Neutrophils % Seg Neuts % (Manual) Lymphocytes % (Manual) Nucleated RBC % Seg Neutrophils # Seg Neutrophils # Man Lymphocytes # (Manual) Eosinophils # (Manual) INR D-Dimer ABG pH 7.158 L* POC ABG pCO2 POC ABG pO2 ABG pO2 109.8 H ABG HCO3 28.7 H ABG O2 Saturation ABG Base Excess -2.5 L ABG Hemoglobin ABG Oxyhemoglobin ABG Sodium ABG Potassium ABG Chloride ABG Glucose Oxyhemoglobin 94.5 L Carboxyhemoglobin Sodium Potassium Chloride Carbon Dioxide BUN Creatinine Glucose POC Glucose 120 H Hemoglobin A1c Lactic Acid Calcium Phosphorus Magnesium Ferritin Total Bilirubin AST ALT Lactate Dehydrogenase C-Reactive Protein Albumin Triglycerides 503 H Arterial Blood Glucose Arterial Blood Ionized Calcium Urine Creatinine Coronavirus (PCR) Crossmatch 02/06/21 02/06/21 02/06/21 17:28 20:16 Unknown WBC 13.5 H RBC 2.98 L Hgb 9.3 L Hct 28.6 L MCV 96 H MCH MCHC RDW Plt Count Lymph % (Auto) Lymph # (Auto) Seg Neutrophils % Seg Neuts % (Manual) 87.0 H Lymphocytes % (Manual) 7.0 L Nucleated RBC % Seg Neutrophils # Seg Neutrophils # Man 11.7 H Lymphocytes # (Manual) 0.9 L Eosinophils # (Manual) 0.5 H INR D-Dimer ABG pH POC ABG pCO2 POC ABG pO2 ABG pO2 ABG HCO3 ABG O2 Saturation ABG Base Excess ABG Hemoglobin ABG Oxyhemoglobin ABG Sodium ABG Potassium ABG Chloride ABG Glucose Oxyhemoglobin Carboxyhemoglobin Sodium Potassium Chloride Carbon Dioxide BUN Creatinine Glucose POC Glucose 147 H 164 H Hemoglobin A1c Lactic Acid Calcium Phosphorus Magnesium Ferritin Total Bilirubin AST ALT Lactate Dehydrogenase C-Reactive Protein Albumin Triglycerides Arterial Blood Glucose Arterial Blood Ionized Calcium Urine Creatinine Coronavirus (PCR) Crossmatch 02/06/21 02/07/21 02/07/21 Unknown 01: 04:00 WBC 12.0 H RBC 2.61 L Hgb 8.2 L Hct 24.5 L MCV MCH MCHC RDW Plt Count Lymph % (Auto) 8.9 L Lymph # (Auto) 1.1 L Seg Neutrophils % 86.3 H Seg Neuts % (Manual) Lymphocytes % (Manual) Nucleated RBC % Seg Neutrophils # 10.3 H Seg Neutrophils # Man Lymphocytes # (Manual) Eosinophils # (Manual) INR D-Dimer ABG pH POC ABG pCO2 POC ABG pO2 ABG pO2 ABG HCO3 ABG O2 Saturation ABG Base Excess ABG Hemoglobin ABG Oxyhemoglobin ABG Sodium ABG Potassium ABG Chloride ABG Glucose Oxyhemoglobin Carboxyhemoglobin Sodium Potassium 3.5 L Chloride Carbon Dioxide BUN 58 H Creatinine 6.6 H Glucose 107 H POC Glucose 173 H Hemoglobin A1c Lactic Acid Calcium 6.7 L Phosphorus 8.00 H D Magnesium Ferritin Total Bilirubin AST ALT Lactate Dehydrogenase C-Reactive Protein Albumin Triglycerides Arterial Blood Glucose Arterial Blood Ionized Calcium Urine Creatinine Coronavirus (PCR) Crossmatch 02/07/21 02/07/21 02/07/21 04:00 04:45 11:49 WBC RBC Hgb Hct MCV MCH MCHC RDW Plt Count Lymph % (Auto) Lymph # (Auto) Seg Neutrophils % Seg Neuts % (Manual) Lymphocytes % (Manual) Nucleated RBC % Seg Neutrophils # Seg Neutrophils # Man Lymphocytes # (Manual) Eosinophils # (Manual) INR D-Dimer ABG pH 7.287 L POC ABG pCO2 64.8 H POC ABG pO2 74.0 L ABG pO2 ABG HCO3 ABG O2 Saturation ABG Base Excess ABG Hemoglobin 9.1 L ABG Oxyhemoglobin 92.0 L ABG Sodium ABG Potassium 2.8 L ABG Chloride ABG Glucose 226 H Oxyhemoglobin Carboxyhemoglobin Sodium Potassium Chloride Carbon Dioxide BUN Creatinine Glucose POC Glucose 170 H Hemoglobin A1c Lactic Acid Calcium Phosphorus 5.50 H D Magnesium Ferritin Total Bilirubin AST ALT Lactate Dehydrogenase C-Reactive Protein Albumin Triglycerides Arterial Blood Glucose 226 H Arterial Blood Ionized Calcium 3.7 L Urine Creatinine Coronavirus (PCR) Crossmatch 02/07/21 02/07/21 02/07/21 13:48 17:45 23:02 WBC RBC Hgb Hct MCV MCH MCHC RDW Plt Count Lymph % (Auto) Lymph # (Auto) Seg Neutrophils % Seg Neuts % (Manual) Lymphocytes % (Manual) Nucleated RBC % Seg Neutrophils # Seg Neutrophils # Man Lymphocytes # (Manual) Eosinophils # (Manual) INR D-Dimer ABG pH POC ABG pCO2 POC ABG pO2 ABG pO2 ABG HCO3 ABG O2 Saturation ABG Base Excess ABG Hemoglobin ABG Oxyhemoglobin ABG Sodium ABG Potassium ABG Chloride ABG Glucose Oxyhemoglobin Carboxyhemoglobin Sodium 136 L Potassium 2.6 L* D Chloride 95.1 L Carbon Dioxide 33 H D BUN 30 H Creatinine 3.6 H Glucose 184 H POC Glucose 172 H 172 H Hemoglobin A1c Lactic Acid Calcium 6.9 L Phosphorus Magnesium Ferritin Total Bilirubin AST ALT Lactate Dehydrogenase C-Reactive Protein Albumin Triglycerides Arterial Blood Glucose Arterial Blood Ionized Calcium Urine Creatinine Coronavirus (PCR) Crossmatch 02/08/21 02/08/21 02/08/21 05:22 06:00 06:00 WBC RBC 2.21 L Hgb 7.2 L Hct 21.0 L MCV 95 H MCH MCHC RDW Plt Count Lymph % (Auto) Lymph # (Auto) Seg Neutrophils % Seg Neuts % (Manual) 87.0 H Lymphocytes % (Manual) 4.0 L Nucleated RBC % Seg Neutrophils # Seg Neutrophils # Man 8.5 H Lymphocytes # (Manual) 0.4 L Eosinophils # (Manual) INR D-Dimer ABG pH POC ABG pCO2 POC ABG pO2 ABG pO2 ABG HCO3 ABG O2 Saturation ABG Base Excess ABG Hemoglobin ABG Oxyhemoglobin ABG Sodium ABG Potassium ABG Chloride ABG Glucose Oxyhemoglobin Carboxyhemoglobin Sodium 136 L Potassium 2.4 L* Chloride 93.1 L Carbon Dioxide 36 H BUN 43 H Creatinine 5.4 H Glucose 167 H POC Glucose 162 H Hemoglobin A1c Lactic Acid Calcium 6.3 L Phosphorus Magnesium Ferritin Total Bilirubin AST ALT Lactate Dehydrogenase C-Reactive Protein Albumin Triglycerides Arterial Blood Glucose Arterial Blood Ionized Calcium Urine Creatinine Coronavirus (PCR) Crossmatch 02/08/21 02/08/21 02/08/21 11:44 17:53 18:56 WBC RBC Hgb Hct MCV MCH MCHC RDW Plt Count Lymph % (Auto) Lymph # (Auto) Seg Neutrophils % Seg Neuts % (Manual) Lymphocytes % (Manual) Nucleated RBC % Seg Neutrophils # Seg Neutrophils # Man Lymphocytes # (Manual) Eosinophils # (Manual) INR D-Dimer ABG pH POC ABG pCO2 POC ABG pO2 ABG pO2 ABG HCO3 ABG O2 Saturation ABG Base Excess ABG Hemoglobin ABG Oxyhemoglobin ABG Sodium ABG Potassium ABG Chloride ABG Glucose Oxyhemoglobin Carboxyhemoglobin Sodium Potassium 2.9 L* D Chloride Carbon Dioxide BUN Creatinine Glucose POC Glucose 164 H 154 H Hemoglobin A1c Lactic Acid Calcium Phosphorus Magnesium Ferritin Total Bilirubin AST ALT Lactate Dehydrogenase C-Reactive Protein Albumin Triglycerides Arterial Blood Glucose Arterial Blood Ionized Calcium Urine Creatinine Coronavirus (PCR) Crossmatch 02/08/21 02/08/21 02/09/21 23:24 23:58 03:21 WBC RBC Hgb Hct MCV MCH MCHC RDW Plt Count Lymph % (Auto) Lymph # (Auto) Seg Neutrophils % Seg Neuts % (Manual) Lymphocytes % (Manual) Nucleated RBC % Seg Neutrophils # Seg Neutrophils # Man Lymphocytes # (Manual) Eosinophils # (Manual) INR D-Dimer ABG pH 7.319 L POC ABG pCO2 63.3 H 68.3 H POC ABG pO2 71.2 L 76.5 L ABG pO2 ABG HCO3 ABG O2 Saturation ABG Base Excess ABG Hemoglobin 8.2 L 7.0 L ABG Oxyhemoglobin 91.8 L 92.2 L ABG Sodium 134.6 L 133.0 L ABG Potassium 2.3 L 3.1 L ABG Chloride 96.0 L 95.0 L ABG Glucose 184 H 154 H Oxyhemoglobin Carboxyhemoglobin Sodium Potassium Chloride Carbon Dioxide BUN Creatinine Glucose POC Glucose 152 H Hemoglobin A1c Lactic Acid Calcium Phosphorus Magnesium Ferritin Total Bilirubin AST ALT Lactate Dehydrogenase C-Reactive Protein Albumin Triglycerides Arterial Blood Glucose 184 H 154 H Arterial Blood Ionized Calcium 3.6 L 3.5 L Urine Creatinine Coronavirus (PCR) Crossmatch 02/09/21 02/09/21 02/09/21 05:10 05:10 06:04 WBC RBC 2.14 L Hgb 7.0 L Hct 20.5 L MCV 96 H MCH 33 H MCHC RDW Plt Count Lymph % (Auto) Lymph # (Auto) Seg Neutrophils % Seg Neuts % (Manual) 82.0 H Lymphocytes % (Manual) 9.0 L Nucleated RBC % 1.0 H Seg Neutrophils # Seg Neutrophils # Man 8.9 H Lymphocytes # (Manual) 1.0 L Eosinophils # (Manual) INR D-Dimer ABG pH POC ABG pCO2 POC ABG pO2 ABG pO2 ABG HCO3 ABG O2 Saturation ABG Base Excess ABG Hemoglobin ABG Oxyhemoglobin ABG Sodium ABG Potassium ABG Chloride ABG Glucose Oxyhemoglobin Carboxyhemoglobin Sodium 135 L Potassium 3.2 L Chloride 91.0 L Carbon Dioxide 32 H BUN 54 H Creatinine 6.6 H Glucose 163 H POC Glucose 149 H Hemoglobin A1c Lactic Acid Calcium 6.2 L Phosphorus Magnesium Ferritin Total Bilirubin AST ALT Lactate Dehydrogenase C-Reactive Protein Albumin Triglycerides Arterial Blood Glucose Arterial Blood Ionized Calcium Urine Creatinine Coronavirus (PCR) Crossmatch 02/09/21 02/09/21 02/09/21 12:02 13:32 13:40 WBC RBC Hgb Hct MCV MCH MCHC RDW Plt Count Lymph % (Auto) Lymph # (Auto) Seg Neutrophils % Seg Neuts % (Manual) Lymphocytes % (Manual) Nucleated RBC % Seg Neutrophils # Seg Neutrophils # Man Lymphocytes # (Manual) Eosinophils # (Manual) INR D-Dimer ABG pH POC ABG pCO2 POC ABG pO2 ABG pO2 ABG HCO3 ABG O2 Saturation ABG Base Excess ABG Hemoglobin ABG Oxyhemoglobin ABG Sodium ABG Potassium ABG Chloride ABG Glucose Oxyhemoglobin Carboxyhemoglobin Sodium Potassium Chloride Carbon Dioxide BUN Creatinine Glucose POC Glucose 147 H Hemoglobin A1c Lactic Acid Calcium Phosphorus Magnesium Ferritin Total Bilirubin AST ALT Lactate Dehydrogenase C-Reactive Protein Albumin Triglycerides 250 H Arterial Blood Glucose Arterial Blood Ionized Calcium Urine Creatinine Coronavirus (PCR) Crossmatch See Detail 02/09/21 02/09/21 02/10/21 18:06 23:42 04:00 WBC RBC Hgb Hct MCV MCH MCHC RDW Plt Count Lymph % (Auto) Lymph # (Auto) Seg Neutrophils % Seg Neuts % (Manual) Lymphocytes % (Manual) Nucleated RBC % Seg Neutrophils # Seg Neutrophils # Man Lymphocytes # (Manual) Eosinophils # (Manual) INR D-Dimer ABG pH POC ABG pCO2 65.8 H POC ABG pO2 68.0 L ABG pO2 ABG HCO3 ABG O2 Saturation ABG Base Excess ABG Hemoglobin 8.3 L ABG Oxyhemoglobin ABG Sodium 132.4 L ABG Potassium 2.9 L ABG Chloride 92.0 L ABG Glucose 174 H Oxyhemoglobin Carboxyhemoglobin Sodium Potassium Chloride Carbon Dioxide BUN Creatinine Glucose POC Glucose 152 H 147 H Hemoglobin A1c Lactic Acid Calcium Phosphorus Magnesium Ferritin Total Bilirubin AST ALT Lactate Dehydrogenase C-Reactive Protein Albumin Triglycerides Arterial Blood Glucose 174 H Arterial Blood Ionized Calcium 3.4 L Urine Creatinine Coronavirus (PCR) Crossmatch 02/10/21 02/10/21 02/10/21 05:32 11:29 14:08 WBC 12.5 H RBC 2.14 L Hgb 6.6 L Hct 20.2 L MCV MCH MCHC RDW Plt Count Lymph % (Auto) Lymph # (Auto) Seg Neutrophils % Seg Neuts % (Manual) Lymphocytes % (Manual) Nucleated RBC % Seg Neutrophils # Seg Neutrophils # Man Lymphocytes # (Manual) Eosinophils # (Manual) INR D-Dimer ABG pH POC ABG pCO2 POC ABG pO2 ABG pO2 ABG HCO3 ABG O2 Saturation ABG Base Excess ABG Hemoglobin ABG Oxyhemoglobin ABG Sodium ABG Potassium ABG Chloride ABG Glucose Oxyhemoglobin Carboxyhemoglobin Sodium Potassium Chloride Carbon Dioxide BUN Creatinine Glucose POC Glucose 167 H 147 H Hemoglobin A1c Lactic Acid Calcium Phosphorus Magnesium Ferritin Total Bilirubin AST ALT Lactate Dehydrogenase C-Reactive Protein Albumin Triglycerides Arterial Blood Glucose Arterial Blood Ionized Calcium Urine Creatinine Coronavirus (PCR) Crossmatch 02/10/21 02/10/21 02/10/21 14:08 18:11 22:32 WBC RBC Hgb 6.4 L Hct 19.1 L* MCV MCH MCHC RDW Plt Count Lymph % (Auto) Lymph # (Auto) Seg Neutrophils % Seg Neuts % (Manual) Lymphocytes % (Manual) Nucleated RBC % Seg Neutrophils # Seg Neutrophils # Man Lymphocytes # (Manual) Eosinophils # (Manual) INR D-Dimer ABG pH POC ABG pCO2 POC ABG pO2 ABG pO2 ABG HCO3 ABG O2 Saturation ABG Base Excess ABG Hemoglobin ABG Oxyhemoglobin ABG Sodium ABG Potassium ABG Chloride ABG Glucose Oxyhemoglobin Carboxyhemoglobin Sodium 136 L Potassium 2.9 L* Chloride 90.2 L Carbon Dioxide 33 H BUN 42 H Creatinine 7.5 H Glucose 155 H POC Glucose 173 H Hemoglobin A1c Lactic Acid Calcium 6.1 L Phosphorus Magnesium Ferritin Total Bilirubin AST ALT Lactate Dehydrogenase C-Reactive Protein Albumin Triglycerides Arterial Blood Glucose Arterial Blood Ionized Calcium Urine Creatinine Coronavirus (PCR) Crossmatch 02/11/21 02/11/21 02/11/21 00:28 04:05 04:30 WBC RBC Hgb Hct MCV MCH MCHC RDW Plt Count Lymph % (Auto) Lymph # (Auto) Seg Neutrophils % Seg Neuts % (Manual) Lymphocytes % (Manual) Nucleated RBC % Seg Neutrophils # Seg Neutrophils # Man Lymphocytes # (Manual) Eosinophils # (Manual) INR D-Dimer ABG pH 7.307 L POC ABG pCO2 72.2 H POC ABG pO2 72.3 L ABG pO2 ABG HCO3 ABG O2 Saturation ABG Base Excess ABG Hemoglobin 8.2 L ABG Oxyhemoglobin ABG Sodium 132.3 L ABG Potassium 3.2 L ABG Chloride 91.0 L ABG Glucose 197 H Oxyhemoglobin Carboxyhemoglobin Sodium 135 L Potassium 3.3 L Chloride 87.1 L Carbon Dioxide 36 H BUN 71 H Creatinine 7.9 H Glucose 263 H POC Glucose 192 H Hemoglobin A1c Lactic Acid Calcium 6.2 L Phosphorus Magnesium Ferritin Total Bilirubin AST ALT Lactate Dehydrogenase C-Reactive Protein Albumin Triglycerides Arterial Blood Glucose 197 H Arterial Blood Ionized Calcium 3.3 L Urine Creatinine Coronavirus (PCR) Crossmatch 02/11/21 02/11/21 02/11/21 04:30 05:47 08:27 WBC RBC 2.22 L Hgb 7.2 L Hct 21.0 L MCV MCH MCHC RDW Plt Count Lymph % (Auto) 8.7 L Lymph # (Auto) 0.9 L Seg Neutrophils % 85.5 H Seg Neuts % (Manual) Lymphocytes % (Manual) Nucleated RBC % Seg Neutrophils # 9.2 H Seg Neutrophils # Man Lymphocytes # (Manual) Eosinophils # (Manual) INR 1.17 H D-Dimer 1930.92 H ABG pH POC ABG pCO2 POC ABG pO2 ABG pO2 ABG HCO3 ABG O2 Saturation ABG Base Excess ABG Hemoglobin ABG Oxyhemoglobin ABG Sodium ABG Potassium ABG Chloride ABG Glucose Oxyhemoglobin Carboxyhemoglobin Sodium Potassium Chloride Carbon Dioxide BUN Creatinine Glucose POC Glucose 189 H Hemoglobin A1c Lactic Acid Calcium Phosphorus Magnesium Ferritin Total Bilirubin AST ALT Lactate Dehydrogenase C-Reactive Protein Albumin Triglycerides Arterial Blood Glucose Arterial Blood Ionized Calcium Urine Creatinine Coronavirus (PCR) Crossmatch 02/11/21 02/11/21 02/11/21 09:00 09:00 13:18 WBC RBC Hgb Hct MCV MCH MCHC RDW Plt Count Lymph % (Auto) Lymph # (Auto) Seg Neutrophils % Seg Neuts % (Manual) Lymphocytes % (Manual) Nucleated RBC % Seg Neutrophils # Seg Neutrophils # Man Lymphocytes # (Manual) Eosinophils # (Manual) INR D-Dimer ABG pH POC ABG pCO2 POC ABG pO2 ABG pO2 ABG HCO3 ABG O2 Saturation ABG Base Excess ABG Hemoglobin ABG Oxyhemoglobin ABG Sodium ABG Potassium ABG Chloride ABG Glucose Oxyhemoglobin Carboxyhemoglobin Sodium Potassium Chloride Carbon Dioxide BUN Creatinine Glucose 126 H POC Glucose 160 H Hemoglobin A1c Lactic Acid Calcium Phosphorus Magnesium Ferritin 1253.0 H Total Bilirubin AST ALT Lactate Dehydrogenase 649 H C-Reactive Protein 12.60 H Albumin Triglycerides Arterial Blood Glucose Arterial Blood Ionized Calcium Urine Creatinine Coronavirus (PCR) Crossmatch 02/11/21 02/11/21 02/11/21 14:30 16:59 22:34 WBC RBC Hgb 7.1 L 6.7 L Hct 20.5 L 19.9 L* MCV MCH MCHC RDW Plt Count Lymph % (Auto) Lymph # (Auto) Seg Neutrophils % Seg Neuts % (Manual) Lymphocytes % (Manual) Nucleated RBC % Seg Neutrophils # Seg Neutrophils # Man Lymphocytes # (Manual) Eosinophils # (Manual) INR D-Dimer ABG pH POC ABG pCO2 POC ABG pO2 ABG pO2 ABG HCO3 ABG O2 Saturation ABG Base Excess ABG Hemoglobin ABG Oxyhemoglobin ABG Sodium ABG Potassium ABG Chloride ABG Glucose Oxyhemoglobin Carboxyhemoglobin Sodium Potassium Chloride Carbon Dioxide BUN Creatinine Glucose POC Glucose 151 H Hemoglobin A1c Lactic Acid Calcium Phosphorus Magnesium Ferritin Total Bilirubin AST ALT Lactate Dehydrogenase C-Reactive Protein Albumin Triglycerides Arterial Blood Glucose Arterial Blood Ionized Calcium Urine Creatinine Coronavirus (PCR) Crossmatch 02/11/21 02/12/21 02/12/21 23:42 04:41 05:19 WBC RBC Hgb Hct MCV MCH MCHC RDW Plt Count Lymph % (Auto) Lymph # (Auto) Seg Neutrophils % Seg Neuts % (Manual) Lymphocytes % (Manual) Nucleated RBC % Seg Neutrophils # Seg Neutrophils # Man Lymphocytes # (Manual) Eosinophils # (Manual) INR D-Dimer ABG pH POC ABG pCO2 POC ABG pO2 ABG pO2 69.0 L ABG HCO3 32.5 H ABG O2 Saturation ABG Base Excess 7.7 H ABG Hemoglobin 5.1 L ABG Oxyhemoglobin ABG Sodium ABG Potassium ABG Chloride ABG Glucose Oxyhemoglobin 94.7 L Carboxyhemoglobin Sodium Potassium Chloride Carbon Dioxide BUN Creatinine Glucose POC Glucose 165 H 153 H Hemoglobin A1c Lactic Acid Calcium Phosphorus Magnesium Ferritin Total Bilirubin AST ALT Lactate Dehydrogenase C-Reactive Protein Albumin Triglycerides Arterial Blood Glucose Arterial Blood Ionized Calcium Urine Creatinine Coronavirus (PCR) Crossmatch 02/12/21 02/12/21 02/12/21 06:35 06:35 08:40 WBC RBC 2.21 L Hgb 7.2 L Hct 20.7 L MCV MCH 33 H MCHC 35 H RDW Plt Count Lymph % (Auto) Lymph # (Auto) Seg Neutrophils % Seg Neuts % (Manual) Lymphocytes % (Manual) Nucleated RBC % Seg Neutrophils # Seg Neutrophils # Man Lymphocytes # (Manual) Eosinophils # (Manual) INR D-Dimer ABG pH POC ABG pCO2 POC ABG pO2 ABG pO2 ABG HCO3 ABG O2 Saturation ABG Base Excess ABG Hemoglobin ABG Oxyhemoglobin ABG Sodium ABG Potassium ABG Chloride ABG Glucose Oxyhemoglobin Carboxyhemoglobin Sodium 135 L Potassium 3.4 L Chloride 91.8 L Carbon Dioxide 36 H BUN 57 H Creatinine 6.8 H Glucose 163 H POC Glucose Hemoglobin A1c Lactic Acid Calcium 7.0 L Phosphorus Magnesium 1.60 L Ferritin Total Bilirubin AST ALT Lactate Dehydrogenase C-Reactive Protein Albumin Triglycerides Arterial Blood Glucose Arterial Blood Ionized Calcium Urine Creatinine Coronavirus (PCR) Crossmatch 02/12/21 02/12/21 02/12/21 10:45 12:04 17:19 WBC RBC Hgb Hct MCV MCH MCHC RDW Plt Count Lymph % (Auto) Lymph # (Auto) Seg Neutrophils % Seg Neuts % (Manual) Lymphocytes % (Manual) Nucleated RBC % Seg Neutrophils # Seg Neutrophils # Man Lymphocytes # (Manual) Eosinophils # (Manual) INR D-Dimer ABG pH POC ABG pCO2 POC ABG pO2 ABG pO2 ABG HCO3 ABG O2 Saturation ABG Base Excess ABG Hemoglobin ABG Oxyhemoglobin ABG Sodium ABG Potassium ABG Chloride ABG Glucose Oxyhemoglobin Carboxyhemoglobin Sodium Potassium Chloride Carbon Dioxide BUN Creatinine Glucose POC Glucose 165 H 165 H Hemoglobin A1c Lactic Acid Calcium Phosphorus Magnesium Ferritin Total Bilirubin AST ALT Lactate Dehydrogenase C-Reactive Protein Albumin Triglycerides 182 H Arterial Blood Glucose Arterial Blood Ionized Calcium Urine Creatinine Coronavirus (PCR) Crossmatch 02/12/21 02/13/21 02/13/21 23:18 05:00 05:36 WBC RBC Hgb Hct MCV MCH MCHC RDW Plt Count Lymph % (Auto) Lymph # (Auto) Seg Neutrophils % Seg Neuts % (Manual) Lymphocytes % (Manual) Nucleated RBC % Seg Neutrophils # Seg Neutrophils # Man Lymphocytes # (Manual) Eosinophils # (Manual) INR D-Dimer ABG pH POC ABG pCO2 60.8 H POC ABG pO2 76.4 L ABG pO2 ABG HCO3 ABG O2 Saturation ABG Base Excess ABG Hemoglobin 7.4 L ABG Oxyhemoglobin ABG Sodium 133.2 L ABG Potassium 3.3 L ABG Chloride 96.0 L ABG Glucose 168 H Oxyhemoglobin Carboxyhemoglobin Sodium Potassium Chloride Carbon Dioxide BUN Creatinine Glucose POC Glucose 163 H 151 H Hemoglobin A1c Lactic Acid Calcium Phosphorus Magnesium Ferritin Total Bilirubin AST ALT Lactate Dehydrogenase C-Reactive Protein Albumin Triglycerides Arterial Blood Glucose 168 H Arterial Blood Ionized Calcium 4.3 L Urine Creatinine Coronavirus (PCR) Crossmatch 02/13/21 02/13/21 02/13/21 06:40 06:40 06:40 WBC RBC 2.19 L Hgb 7.0 L Hct 20.8 L MCV 95 H MCH MCHC RDW Plt Count Lymph % (Auto) Lymph # (Auto) Seg Neutrophils % Seg Neuts % (Manual) Lymphocytes % (Manual) Nucleated RBC % Seg Neutrophils # Seg Neutrophils # Man Lymphocytes # (Manual) Eosinophils # (Manual) INR D-Dimer ABG pH POC ABG pCO2 POC ABG pO2 ABG pO2 ABG HCO3 ABG O2 Saturation ABG Base Excess ABG Hemoglobin ABG Oxyhemoglobin ABG Sodium ABG Potassium ABG Chloride ABG Glucose Oxyhemoglobin Carboxyhemoglobin Sodium 135 L Potassium 3.4 L Chloride 93.0 L Carbon Dioxide 32 H BUN 46 H Creatinine 5.8 H Glucose 148 H POC Glucose Hemoglobin A1c Lactic Acid Calcium 7.9 L Phosphorus Magnesium Ferritin Total Bilirubin AST ALT Lactate Dehydrogenase C-Reactive Protein 16.80 H Albumin Triglycerides Arterial Blood Glucose Arterial Blood Ionized Calcium Urine Creatinine Coronavirus (PCR) Crossmatch 02/13/21 02/13/21 02/13/21 06:40 07:38 07:38 WBC RBC Hgb Hct MCV MCH MCHC RDW Plt Count Lymph % (Auto) Lymph # (Auto) Seg Neutrophils % Seg Neuts % (Manual) Lymphocytes % (Manual) Nucleated RBC % Seg Neutrophils # Seg Neutrophils # Man Lymphocytes # (Manual) Eosinophils # (Manual) INR D-Dimer 1722.16 H ABG pH POC ABG pCO2 POC ABG pO2 ABG pO2 ABG HCO3 ABG O2 Saturation ABG Base Excess ABG Hemoglobin ABG Oxyhemoglobin ABG Sodium ABG Potassium ABG Chloride ABG Glucose Oxyhemoglobin Carboxyhemoglobin Sodium Potassium Chloride Carbon Dioxide BUN Creatinine Glucose POC Glucose Hemoglobin A1c Lactic Acid Calcium Phosphorus Magnesium 1.60 L Ferritin 976.5 H Total Bilirubin AST ALT Lactate Dehydrogenase C-Reactive Protein Albumin Triglycerides Arterial Blood Glucose Arterial Blood Ionized Calcium Urine Creatinine Coronavirus (PCR) Crossmatch 02/13/21 02/13/21 02/13/21 12:24 16:57 23:32 WBC RBC Hgb Hct MCV MCH MCHC RDW Plt Count Lymph % (Auto) Lymph # (Auto) Seg Neutrophils % Seg Neuts % (Manual) Lymphocytes % (Manual) Nucleated RBC % Seg Neutrophils # Seg Neutrophils # Man Lymphocytes # (Manual) Eosinophils # (Manual) INR D-Dimer ABG pH POC ABG pCO2 POC ABG pO2 ABG pO2 ABG HCO3 ABG O2 Saturation ABG Base Excess ABG Hemoglobin ABG Oxyhemoglobin ABG Sodium ABG Potassium ABG Chloride ABG Glucose Oxyhemoglobin Carboxyhemoglobin Sodium Potassium Chloride Carbon Dioxide BUN Creatinine Glucose POC Glucose 141 H 156 H 161 H Hemoglobin A1c Lactic Acid Calcium Phosphorus Magnesium Ferritin Total Bilirubin AST ALT Lactate Dehydrogenase C-Reactive Protein Albumin Triglycerides Arterial Blood Glucose Arterial Blood Ionized Calcium Urine Creatinine Coronavirus (PCR) Crossmatch 02/14/21 02/14/21 02/14/21 04:00 05:41 11:00 WBC RBC 2.14 L Hgb 6.9 L Hct 20.7 L MCV 97 H MCH 33 H MCHC RDW Plt Count Lymph % (Auto) Lymph # (Auto) Seg Neutrophils % Seg Neuts % (Manual) Lymphocytes % (Manual) Nucleated RBC % Seg Neutrophils # Seg Neutrophils # Man Lymphocytes # (Manual) Eosinophils # (Manual) INR D-Dimer ABG pH POC ABG pCO2 POC ABG pO2 ABG pO2 ABG HCO3 ABG O2 Saturation ABG Base Excess ABG Hemoglobin ABG Oxyhemoglobin ABG Sodium ABG Potassium ABG Chloride ABG Glucose Oxyhemoglobin Carboxyhemoglobin Sodium Potassium Chloride Carbon Dioxide BUN Creatinine Glucose POC Glucose 143 H Hemoglobin A1c Lactic Acid Calcium Phosphorus Magnesium Ferritin Total Bilirubin AST ALT Lactate Dehydrogenase C-Reactive Protein Albumin Triglycerides Arterial Blood Glucose Arterial Blood Ionized Calcium Urine Creatinine Coronavirus (PCR) Crossmatch See Detail 02/14/21 02/14/21 02/14/21 11:51 18:08 23:41 WBC RBC Hgb Hct MCV MCH MCHC RDW Plt Count Lymph % (Auto) Lymph # (Auto) Seg Neutrophils % Seg Neuts % (Manual) Lymphocytes % (Manual) Nucleated RBC % Seg Neutrophils # Seg Neutrophils # Man Lymphocytes # (Manual) Eosinophils # (Manual) INR D-Dimer ABG pH POC ABG pCO2 POC ABG pO2 ABG pO2 ABG HCO3 ABG O2 Saturation ABG Base Excess ABG Hemoglobin ABG Oxyhemoglobin ABG Sodium ABG Potassium ABG Chloride ABG Glucose Oxyhemoglobin Carboxyhemoglobin Sodium Potassium Chloride Carbon Dioxide BUN Creatinine Glucose POC Glucose 113 H 123 H 120 H Hemoglobin A1c Lactic Acid Calcium Phosphorus Magnesium Ferritin Total Bilirubin AST ALT Lactate Dehydrogenase C-Reactive Protein Albumin Triglycerides Arterial Blood Glucose Arterial Blood Ionized Calcium Urine Creatinine Coronavirus (PCR) Crossmatch 02/14/21 02/15/21 02/15/21 Unknown 05:00 05:00 WBC RBC Hgb Hct MCV MCH MCHC RDW Plt Count Lymph % (Auto) Lymph # (Auto) Seg Neutrophils % Seg Neuts % (Manual) Lymphocytes % (Manual) Nucleated RBC % Seg Neutrophils # Seg Neutrophils # Man Lymphocytes # (Manual) Eosinophils # (Manual) INR D-Dimer ABG pH POC ABG pCO2 53.4 H POC ABG pO2 61.8 L ABG pO2 ABG HCO3 ABG O2 Saturation ABG Base Excess ABG Hemoglobin 7.7 L ABG Oxyhemoglobin 88.8 L ABG Sodium ABG Potassium ABG Chloride ABG Glucose 143 H Oxyhemoglobin Carboxyhemoglobin 1.6 H Sodium Potassium Chloride 96.9 L Carbon Dioxide 33 H 31 H BUN 40 H 38 H Creatinine 5.2 H 4.8 H Glucose 152 H 132 H POC Glucose Hemoglobin A1c Lactic Acid Calcium 7.9 L Phosphorus Magnesium Ferritin Total Bilirubin AST ALT Lactate Dehydrogenase C-Reactive Protein Albumin Triglycerides Arterial Blood Glucose 143 H Arterial Blood Ionized Calcium Urine Creatinine Coronavirus (PCR) Crossmatch 02/15/21 02/15/21 02/15/21 05:00 05:27 12:05 WBC RBC 2.30 L Hgb 7.1 L Hct 22.1 L MCV 96 H MCH MCHC RDW 15.7 H Plt Count Lymph % (Auto) 11.0 L Lymph # (Auto) 1.1 L Seg Neutrophils % 83.0 H Seg Neuts % (Manual) Lymphocytes % (Manual) Nucleated RBC % Seg Neutrophils # 8.6 H Seg Neutrophils # Man Lymphocytes # (Manual) Eosinophils # (Manual) INR D-Dimer ABG pH POC ABG pCO2 POC ABG pO2 ABG pO2 ABG HCO3 ABG O2 Saturation ABG Base Excess ABG Hemoglobin ABG Oxyhemoglobin ABG Sodium ABG Potassium ABG Chloride ABG Glucose Oxyhemoglobin Carboxyhemoglobin Sodium Potassium Chloride Carbon Dioxide BUN Creatinine Glucose POC Glucose 133 H 123 H Hemoglobin A1c Lactic Acid Calcium Phosphorus Magnesium Ferritin Total Bilirubin AST ALT Lactate Dehydrogenase C-Reactive Protein Albumin Triglycerides Arterial Blood Glucose Arterial Blood Ionized Calcium Urine Creatinine Coronavirus (PCR) Crossmatch 02/15/21 02/15/21 02/16/21 17:08 23:52 03:44 WBC RBC Hgb Hct MCV MCH MCHC RDW Plt Count Lymph % (Auto) Lymph # (Auto) Seg Neutrophils % Seg Neuts % (Manual) Lymphocytes % (Manual) Nucleated RBC % Seg Neutrophils # Seg Neutrophils # Man Lymphocytes # (Manual) Eosinophils # (Manual) INR D-Dimer ABG pH 7.307 L POC ABG pCO2 59.5 H POC ABG pO2 63.2 L ABG pO2 ABG HCO3 ABG O2 Saturation ABG Base Excess ABG Hemoglobin 9.3 L ABG Oxyhemoglobin ABG Sodium ABG Potassium ABG Chloride ABG Glucose 148 H Oxyhemoglobin Carboxyhemoglobin Sodium Potassium Chloride Carbon Dioxide BUN Creatinine Glucose POC Glucose 129 H 136 H Hemoglobin A1c Lactic Acid Calcium Phosphorus Magnesium Ferritin Total Bilirubin AST ALT Lactate Dehydrogenase C-Reactive Protein Albumin Triglycerides Arterial Blood Glucose 148 H Arterial Blood Ionized Calcium Urine Creatinine Coronavirus (PCR) Crossmatch 02/16/21 02/16/21 02/16/21 05:26 06:00 Unknown WBC RBC 2.19 L Hgb 7.1 L Hct 21.3 L MCV 98 H MCH 33 H MCHC RDW 16.0 H Plt Count Lymph % (Auto) Lymph # (Auto) Seg Neutrophils % Seg Neuts % (Manual) 85.0 H Lymphocytes % (Manual) 6.0 L Nucleated RBC % 4.0 H Seg Neutrophils # Seg Neutrophils # Man Lymphocytes # (Manual) 0.5 L Eosinophils # (Manual) INR D-Dimer ABG pH POC ABG pCO2 POC ABG pO2 ABG pO2 ABG HCO3 ABG O2 Saturation ABG Base Excess ABG Hemoglobin ABG Oxyhemoglobin ABG Sodium ABG Potassium ABG Chloride ABG Glucose Oxyhemoglobin Carboxyhemoglobin Sodium Potassium Chloride Carbon Dioxide BUN 52 H Creatinine 6.0 H Glucose 138 H POC Glucose 135 H Hemoglobin A1c Lactic Acid Calcium Phosphorus Magnesium Ferritin Total Bilirubin AST ALT Lactate Dehydrogenase C-Reactive Protein Albumin Triglycerides Arterial Blood Glucose Arterial Blood Ionized Calcium Urine Creatinine Coronavirus (PCR) Crossmatch
--- NOTE | 2021-02-16 16:07 | Progress Note ---
Assessment and Plan Cultures: Blood culture 02/08/2021 no growth today SARS CoV2 PCR positive 01/22/2021 respiratory culture: Usual respiratory dillon Blood Culture 01/30/2021 no growth today Urine culture 01/30/2021 no growth today Sputum culture 01/30/2021 usual respiratory dillon Blood culture 02/04/2021 coag negative staph 2 of 4 Urine culture 02/04/2021 no growth Sputum culture 02/04/2021 Maegan albicans Assessment: 60 year old male with history of morbid obesity admitted on 01/22/2021 secondary to 3-day history of worsening shortness of breath associated with fever, chills, loss of smell and taste: #Severe sepsis with septic shock: remains with intermittent high fever now off pressors. Right IJ removed. Likely due to GPC bacteremia. Initial sepsis due to bilateral pneumonia. Urinalysis negative. Procalcitonin elevated in the setting of DEISI. Leg US no DVT. #Coag-neg Staph bacteremia: new blood culture on 02/04/2021 with GPC 2 of 4 bottles, possible real. Completed treatment 7 days of vancomycin. #Critical COVID-19 pneumonia: Patient remains intubated. Chest x-ray with bilateral airspace disease. Inflammatory markers worsening, D-dimer>10K. CRP 4 0-->23. Completed remdesivir. #Acute respiratory failure: Remains on the ventilator #Transaminitis: Likely secondary to COVID-19. #DEISI: Worsening, On hemodialysis Recommendations: -Completed vancomycin. -Monitor fever ID will sign off. Please call questions. Eva Walker MD [facility] ([facility] O: [phone] F: [phone] Subjective Date of service: 02/16/21 Principal diagnosis: DEISI Interval history: Afebrile, normal white count. Cultures negative so far. No acute changes. Objective - Exam Narrative Exam: Physical exam deferred to reduce risk of transmission of COVID-19. Please refer to primary team's note. - Constitutional Vitals: Vital Signs Temp Pulse Resp BP Pulse Ox 98.9 F 96 H 19 120/68 92 02/16/21 14:00 02/16/21 15:56 02/16/21 15:00 02/16/21 15:56 02/16/21 15:56 Temperature -Last 24 Hours Temperature 98.9 F Temperature 98.9 F Temperature 99.1 F Temperature 98.7 F Temperature 98.9 F Temperature 98.5 F Temperature 98.8 F Temperature 98.8 F Temperature 99.4 F Temperature 99.9 F - Labs CBC & Chem 7: 02/16/21 Unknown 02/16/21 06:00 Labs: Abnormal lab results 02/15/21 02/15/21 02/16/21 Range/Units 17:08 23:52 03:44 RBC (3.65-5.03) M/mm3 Hgb (11.8-15.2) gm/dl Hct (35.5-45.6) % MCV (84-94) fl MCH (28-32) pg RDW (13.2-15.2) % Seg Neuts % (Manual) (40.0-70.0) % Lymphocytes % (Manual) (13.4-35.0) % Nucleated RBC % (0.0-0.9) % Lymphocytes # (Manual) (1.2-5.4) K/mm3 ABG pH 7.307 L (7.320-7.450) POC ABG pCO2 59.5 H (32.0-48.0) mmHg POC ABG pO2 63.2 L (83-108) mmHg ABG Hemoglobin 9.3 L (12.0-17.5) ABG Glucose 148 H (65-95) mg/dL BUN (9-20) mg/dL Creatinine (0.8-1.3) mg/dL Glucose (75-100) mg/dL POC Glucose 129 H 136 H (70-105) mg/dL Arterial Blood Glucose 148 H (65-95) mg/dL 02/16/21 02/16/21 02/16/21 Range/Units 05:26 06:00 Unknown RBC 2.19 L (3.65-5.03) M/mm3 Hgb 7.1 L (11.8-15.2) gm/dl Hct 21.3 L (35.5-45.6) % MCV 98 H (84-94) fl MCH 33 H (28-32) pg RDW 16.0 H (13.2-15.2) % Seg Neuts % (Manual) 85.0 H (40.0-70.0) % Lymphocytes % (Manual) 6.0 L (13.4-35.0) % Nucleated RBC % 4.0 H (0.0-0.9) % Lymphocytes # (Manual) 0.5 L (1.2-5.4) K/mm3 ABG pH (7.320-7.450) POC ABG pCO2 (32.0-48.0) mmHg POC ABG pO2 (83-108) mmHg ABG Hemoglobin (12.0-17.5) ABG Glucose (65-95) mg/dL BUN 52 H (9-20) mg/dL Creatinine 6.0 H (0.8-1.3) mg/dL Glucose 138 H (75-100) mg/dL POC Glucose 135 H (70-105) mg/dL Arterial Blood Glucose (65-95) mg/dL
--- NOTE | 2021-02-16 17:13 | Progress Note ---
<SALVADORTamieBRENDALourdes - Last Filed: 02/16/21 17:09> Assessment and Plan Assessment and plan: This is a 60-year-old male with diabetes mellitus, hypertension, hyperlipidemia, chronic renal insufficiency who was admitted on 01/23 as a COVID-19 PUI with Sepsis, COVID-19 pneumonia, coag negative staph bacteremia, acute hypoxic r espiratory failure, and acute kidney injury. Sepsis COVID-19 pneumonia Coag-neg Staph bacteremia Acute hypoxic respiratory failure Acute kidney injury, HD initiated 02/03 Anemia Diabetes mellitus Hypertension Hyperlipidemia Chronic renal insufficiency Elevated D-dimer -CCM, nephrology, infectious disease, GI consulted, appreciate recommendations -Antibiotic therapy -COVID-19 PCR positive, Pneumonia on CXR -Steroid therapy, s/p remdesivir -Mechanical ventilation, wean as tolerated -VAP bundle -HD per nephrology -S/p 3 units PRBC during stay -Trend BMP, CBC, COVID-19 inflammatory markers -Bilateral lower extremity and upper extremity Doppler ultrasound negative for DVT/SVT -Therapeutic Lovenox discontinued on 02/13 due to positive occult -SSI and Long-acting insulin -Accu-Cheks every 6 while on tube feedings -Hold home antihypertensive regimen for now as he is still needing vasopressor support -Blood pressure monitoring per protocol -S/p NaHCO3 gtt DVT/GI prophylaxis: SCDs to bilateral lower extremities while in bed, PPI, avoid chemical anticoagulation in setting of GI bleed Dispo: ICU The high probability of a clinically significant, sudden or life threatening deterioration of the [multi] system(s) required my full and direct attention, intervention and personal management. The aggregate critical care time was [32] minutes. This time is in addition to time spent performing reported procedures but includes the following: [x] Data Review and interpretation [x] Patient assessment and monitoring of vital signs [x] Documentation [x] Medication orders and management History Interval history: This is a 60-year-old male with diabetes mellitus, hypertension, hyperlipidemia, chronic renal insufficiency presents to the emergency department on 01/23 with shortness of breath, fevers chills, loss of smell and taste and body aches for the past 3 days via EMS. Per EMS patient's oxygen saturation on room air was 50% and after being placed on nonrebreather it increased 75%. Upon arrival to the emergency department patient was being bagged by EMS. In the emergency room patient was intubated due to severe hypoxia, increased work of breathing and lethargy. Patient was sedated on propofol and fentanyl. Patient presented with fever, tachycardia, tachypnea and acute hypoxic respiratory failure with PNA on CXR meeting Sepsis criteria. Lab work in the emergency department revealed hyponatremia, hypokalemia, hypochloremia, elevated CR/BUN and CXR showed bilateral pneumonia. Patient was admitted to the hospital service as a COVID-19 PUI with consults to infectious disease, nephrology and critical care medicine. 01/24/2021: Patient is intubated and sedated, patient is positive for COVID-19 infection. ID was consulted and put on dexamethasone and remdesivir. Patient has DEISI and nephrology is following. Creatinine stable, patient is urinating. Discussed with nephrology and he is okay with remdesivir. Pulmonary critical care is following for his vent setting. PEEP of 8 and FiO2 of 85%. Patient was alert and off sedatives. 01/25/2021; patient is intubated and on mechanical ventilation. Continue with treatment of Covid. Nephrology and ID is following. Pulmonary is following for vent management 01/26: Remains on mechanical ventilation and [facility] increased his PEEP. [facility] has ordered Precedex for sedation. Possibly need to prone this p.m. No acute events reported overnight. This morning his D-dimer is greater than 10,000 and we have started him on Lovenox 120 mg daily. Nutrition has been consulted for initiation of tube feedings. Patient remains sedated on propofol 40 and fentanyl for the time my examination this morning. 01/27: Continue Lovenox, remdesivir and empiric antibiotics. Patient had a T-max of 101 overnight. The time of examination patient is on CMV 500/18/14/0.61. Kidney function slightly worsened. Sedated on fentanyl ground-level fall and Precedex. Nephrology has increased IV fluids to 100 ml/hr. Continue to trend BMP and CBC. Sedation vacation attempt by RN this AM. 01/28: Patient completed antibiotics today [facility] will paralyze patient and increase sedation. PICC line ordered for possible vasopressor therapy need. Patient's D-dimer remains greater than 10,000 and he still has hyperchloremia. Patient's kidney function has improved today. May need to prone the patient if no improvement in oxygenation is noted in the next 24 hours. The time of my examination patient is sedated with propofol, fentanyl and Precedex and is on assist control 500/18/16/0.80 hypoxic on ABG on 60% FiO2. 01/29: Patient was started on Nimbex yesterday and his ABG this morning showed respiratory acidosis with hypercapnia and his respiratory rate was increased. We will obtain a repeat ABG this afternoon. This morning patient is hypernatremic, hyperkalemic and hyperchloremic. His potassium has been corrected with the management and will obtain repeat BMP tomorrow. His kidney functions have remained stable and we will await nephrology's input. No acute events reported overnight. This morning the time my examination patient sedated with propofol, Precedex and fentanyl and paralyzed with Nimbex. He is on assist control 500/24/16 0.80. 01/30: This morning patient is hypokalemic again and was given Kayexalate. Patient has hypernatremia and hyper chloremia and his renal function is slightly worse after receiving Lasix yesterday. His D-dimer remains greater than 10,000 and he is still on a paralytic. Patient is sedated on Precedex, fentanyl, propofol. Mechanical ventilation settings seven-point 2/69/61/28. [facility] has decided to continue paralytics for 48 more hours and will attempt proning the patient. Increased free water flushes 300 cc every 4 hours. Patient states has restarted his antibiotics cefepime and vancomycin and recultured. 01/31/21 Hyperkalemia, Treated 02/01/21 Hyperkalemia, Treated 02/02: Patient's kidney function continues to worsen and a stat BMP this morning shows BUN/creatinine 20/6.1 and he remains hypocalcemic and hypernatremic, hypokalemic and hypochloremic. Patient received 2 g of calcium gluconate and Kayexalate and his repeat potassium was 4.3 this afternoon. He remains antibiotic therapy and steroids. Nephrology has placed the patient on bicarb drip given metabolic acidosis and has decided to hold off hemodialysis till tomorrow.The time my examination patient is sedated on fentanyl, Precedex and on assist control 500/20/12/0.70. s/p paralytic. 02/03: Today patient's ABG shows respiratory acidosis however it is improving, hypernatremia, hyperchloremia, metabolic acidosis on BMP, worsening kidney function BUN/creatinine 130/9.2 with hyperphosphatemia. Patient received a Vas- Cath to his right IJ for initiation of dialysis. At the time of my examination patient remains sedated on fentanyl, propofol and Precedex with vasopressor support with Levophed at 2. 02/04: At the time of examination patient was on assist control tidal volume 500, rate 40, PEEP of 12, FiO2 85%. Patient had a T-max of 100.9 and infectious disease has stopped his vancomycin given negative MRSA. This afternoon patient respiked his temperature and was pancultured again. Patient was started on hemodialysis yesterday and will receive HD again today. Patient is sedated on Precedex, propofol, fentanyl and remains on Levophed. He is on assist control tidal volume 500, rate of 30, PEEP of 12, FiO2 of 85%. Patient still has some respiratory acidosis however his hypernatremia and hyperchloremia have improved and his metabolic acidosis has resolved. Patient will receive hemodialysis today 02/05: Patient continues to have low-grade fever temp this morning time examination he was on assist control tidal volume 500, and sedated on propofol/fentanyl/Precedex and is on Levophed. Hemodialysis per nephrology. Antibiotics per ID. Patient's blood culture from 02/04 grew gram-positive cocci in clusters in 1/2 bottles and he was started on vancomycin. 02/06: Patients ABG showed respiratory acidosis and the tracings were changed however a repeat ABG showed showed acidosis.[facility] will start a bicarb drip after giving 2 amps of bicarb push. Yesterday patient blood cultures grew gram- positive cocci and he was started on vancomycin. At the time my examination patient was on assist control tidal volume 550, rate 34, PEEP 16, FiO2 90% and sedated on fentanyl, Precedex, propofol elevated pressure support with Levophed. Bilateral lower extremity Doppler ultrasounds done yesterday showed no evidence of DVT/SVT. 02/07/2021; patient is still on the vent with PEEP of 16 and FiO2 of 90%, sedated with fentanyl Precedex and propofol. Patient still requiring Levophed. Patient was sedated yesterday and was given bicarb push. Blood culture grew gram-positive cocci in clusters and he is on vancomycin, will follow identification. 02/08/2021;patient is still on the vent with PEEP of 16 and FiO2 of 90%, sedated with fentanyl Precedex and propofol. Patient still requiring Levophed. Patient was sedated yesterday and was given bicarb push. Blood culture grew gram- positive cocci in clusters and he is on vancomycin, will follow identification. Patient is currently on dialysis. Patient is anemic transfuse if hemoglobin is below 7. 02/09: This morning patient has slight hypokalemia, hypochorlemia, hyponatremia and metabolic alkalosis. [facility] will continue bicarb gtt given that the patient does not have HD access at this time. We will replete the potassium and recheck BMP in the AM. We will type and cross in anticipation of PRBC transfusion. This morning he is sedated on Ativan, fentayl, and precedex. Will obtain a triglyceride level today in hopes to resume propofol. Patient is alkalotic and BMP however we will continue with bicarb drip per [facility] given that the patient does not have any access for hemodialysis. Anticipate replacing hemodialysis catheter tomorrow or Tuesday. The time my examination he is on AC TV 550, Rate 34, PeeP 16, FiO2 .65. 02/10: A.m. labs still pending, [facility] plans to replace HD catheter tomorrow as the patient is still febrile however his fever curve is trending down, remains on a bicarb drip and on vancomycin. Today at the time my examination patient was sedated on Precedex, Ativan and fentanyl and he is on assist control tidal 11/04/1951, rate 34, PEEP 16, FiO2 65%. Overnight patient was hypotensive and received 1 dose of midodrine. 02/11: Patient is still having low-grade temperatures that we will obtain a bilateral lower upper extremity venous Doppler ultrasound given that his repeat cultures have been negative so far. Patient received a Vas-Cath today for hemodialysis. The time examination patient is on assist control tidal volume 550, rate of 34, PEEP of 16 and FiO2 of 75%. Patient was hypokalemic and anemic yesterday which were both repleted with potassium and 1 unit PRBC. 02/12: 02/12: Patient had a 12-second run of V. tach today, his potassium and magnesium were low which was repleted. Renal adjusted potassium bath. We will obtain a triglyceride level in hopes to restarting to prevent as needed. This morning at the time my examination patient was sedated on fentanyl, Ativan and Precedex and remained on a bicarb drip. He was on assist control tidal volume 550, rate 34, PEEP 16, FiO2 85%. We will obtain a occult stool given no evident source of bleeding and need for transfusion. Anemia possibly due to hemodialysis. 02/13: Patient's T-max was 100.7, remains on fentanyl, Ativan, Precedex and bicarb drip this morning at some examination on assist control tidal volume 550, rate 34, PEEP 16 and FiO2 85%. On the labs this morning is slightly hypokalemic and remains metabolic alkalotic on BMP. His occult was positive. His Lovenox and consult GI. Patient received hemodialysis today. 02/14: cont PPI, GI recommended to scope now, monitor clinically, tolerating TF, remains intubated. Hb 6.9 today - transfuse another unit. very poor prognosis. 02/15: H&H appears to be stable following 1 unit of transfusion yesterday. Continue to hold heparin and aspirin products. Continue to monitor clinically. Poor prognosis. Wean off from vent as tolerated. 02/16: Infectious disease has signed off, his Ativan drip was discontinued and to prevent drip will be started when patient needs it. T-max 100.6 yesterday afternoon. He received hemodialysis today and at the time my examination was still on mechanical ventilation assist control tidal volume 550, rate 34, PEEP 16 on 70% FiO2. Patient was sedated on fentanyl dexamethasone and Ativan. No acute events reported overnight. Hospitalist Physical - Constitutional Vitals: Temp Pulse Resp BP Pulse Ox 98.9 F 98 H 35 H 142/71 93 02/16/21 14:00 02/16/21 16:00 02/16/21 16:00 02/16/21 16:00 02/16/21 16:00 General appearance: Present: no acute distress, well-nourished, other (Sedated on mechanical ventilation) - EENT Eyes: Present: PERRL ENT: poor dentition - Neck Neck: Present: normal ROM - Respiratory Respiratory effort: normal Respiratory: bilateral: diminished - Cardiovascular Rhythm: regular Heart Sounds: Present: S1 & S2. Absent: systolic murmur, diastolic murmur - Extremities Extremities: no ischemia, pulses intact, pulses symmetrical, normal temperature, normal color Extremity abnormal: edema Peripheral Pulses: within normal limits - Abdominal General gastrointestinal: soft, non-tender, non-distended, normal bowel sounds - Integumentary Integumentary: Present: clear, dry - Psychiatric Psychiatric: other (sedated) - Neurologic Neurologic: other (sedated) - Allied Health Allied health notes reviewed: nursing, RT, social work HEART Score - HEART Score Risk factors: 1-2 risk factors Troponin: < normal limit - Critical Actions Critical Actions: 0-3 pts:0.9-1.7%risk of adverse cardiac event.Candidate for discharge Results - Labs CBC & Chem 7: 02/16/21 Unknown 02/16/21 06:00 Labs: Laboratory Last Values WBC 8.9 K/mm3 (4.5-11.0) 02/16/21 Unknown RBC 2.19 M/mm3 (3.65-5.03) L 02/16/21 Unknown Hgb 7.1 gm/dl (11.8-15.2) L 02/16/21 Unknown Hct 21.3 % (35.5-45.6) L 02/16/21 Unknown MCV 98 fl (84-94) H 02/16/21 Unknown MCH 33 pg (28-32) H 02/16/21 Unknown MCHC 33 % (32-34) 02/16/21 Unknown RDW 16.0 % (13.2-15.2) H 02/16/21 Unknown Plt Count 258 K/mm3 (140-440) 02/16/21 Unknown Lymph % (Auto) 11.0 % (13.4-35.0) L 02/15/21 05:00 Isabela % (Auto) 4.2 % (0.0-7.3) 02/15/21 05:00 Eos % (Auto) 1.2 % (0.0-4.3) 02/15/21 05:00 Baso % (Auto) 0.6 % (0.0-1.8) 02/15/21 05:00 Lymph # (Auto) 1.1 K/mm3 (1.2-5.4) L 02/15/21 05:00 Isabela # (Auto) 0.4 K/mm3 (0.0-0.8) 02/15/21 05:00 Eos # (Auto) 0.1 K/mm3 (0.0-0.4) 02/15/21 05:00 Baso # (Auto) 0.1 K/mm3 (0.0-0.1) 02/15/21 05:00 Add Manual Diff Complete 02/16/21 Unknown Total Counted 100 02/16/21 Unknown Seg Neutrophils % 83.0 % (40.0-70.0) H 02/15/21 05:00 Seg Neuts % (Manual) 85.0 % (40.0-70.0) H 02/16/21 Unknown Band Neutrophils % 2.0 % 02/16/21 Unknown Lymphocytes % (Manual) 6.0 % (13.4-35.0) L 02/16/21 Unknown Reactive Lymphs % (Man) 1.0 % 01/27/21 05:29 Monocytes % (Manual) 5.0 % (0.0-7.3) 02/16/21 Unknown Eosinophils % (Manual) 1.0 % (0.0-4.3) 02/16/21 Unknown Basophils % (Manual) 1.0 % (0.0-1.8) 02/06/21 Unknown Metamyelocytes % 1.0 % 02/16/21 Unknown Nucleated RBC % 4.0 % (0.0-0.9) H 02/16/21 Unknown Seg Neutrophils # 8.6 K/mm3 (1.8-7.7) H 02/15/21 05:00 Seg Neutrophils # Man 7.6 K/mm3 (1.8-7.7) 02/16/21 Unknown Band Neutrophils # 0.2 K/mm3 02/16/21 Unknown Lymphocytes # (Manual) 0.5 K/mm3 (1.2-5.4) L 02/16/21 Unknown Abs React Lymphs (Man) 0.0 K/mm3 02/16/21 Unknown Monocytes # (Manual) 0.4 K/mm3 (0.0-0.8) 02/16/21 Unknown Eosinophils # (Manual) 0.1 K/mm3 (0.0-0.4) 02/16/21 Unknown Basophils # (Manual) 0.0 K/mm3 (0.0-0.1) 02/16/21 Unknown Metamyelocytes # 0.1 K/mm3 02/16/21 Unknown Myelocytes # 0.0 K/mm3 02/16/21 Unknown Promyelocytes # 0.0 K/mm3 02/16/21 Unknown Blast Cells # 0.0 K/mm3 02/16/21 Unknown WBC Morphology Not Reportable 02/16/21 Unknown Hypersegmented Neuts Not Reportable 02/16/21 Unknown Hyposegmented Neuts Not Reportable 02/16/21 Unknown Hypogranular Neuts Not Reportable 02/16/21 Unknown Smudge Cells Not Reportable 02/16/21 Unknown Toxic Granulation Not Reportable 02/16/21 Unknown Toxic Vacuolation Not Reportable 02/16/21 Unknown Dohle Bodies Not Reportable 02/16/21 Unknown Pelger-Huet Anomaly Not Reportable 02/16/21 Unknown Fátima Rods Not Reportable 02/16/21 Unknown Platelet Estimate Consistent w auto 02/16/21 Unknown Clumped Platelets Not Reportable 02/16/21 Unknown Plt Clumps, EDTA Not Reportable 02/16/21 Unknown Large Platelets Not Reportable 02/16/21 Unknown Giant Platelets Not Reportable 02/16/21 Unknown Platelet Satelliting Not Reportable 02/16/21 Unknown Plt Morphology Comment Not Reportable 02/16/21 Unknown RBC Morphology Not Reportable 02/16/21 Unknown Dimorphic RBCs Not Reportable 02/16/21 Unknown Polychromasia Not Reportable 02/16/21 Unknown Hypochromasia Not Reportable 02/16/21 Unknown Poikilocytosis Not Reportable 02/16/21 Unknown Anisocytosis 1+ 02/16/21 Unknown Microcytosis Not Reportable 02/16/21 Unknown Macrocytosis Not Reportable 02/16/21 Unknown Spherocytes Not Reportable 02/16/21 Unknown Pappenheimer Bodies Not Reportable 02/16/21 Unknown Sickle Cells Not Reportable 02/16/21 Unknown Target Cells Not Reportable 02/16/21 Unknown Tear Drop Cells Not Reportable 02/16/21 Unknown Ovalocytes Not Reportable 02/16/21 Unknown Helmet Cells Not Reportable 02/16/21 Unknown [place] Bodies Not Reportable 02/16/21 Unknown [place] Rings Not Reportable 02/16/21 Unknown Ludmila Cells Not Reportable 02/16/21 Unknown Bite Cells Not Reportable 02/16/21 Unknown Crenated Cell Not Reportable 02/16/21 Unknown Elliptocytes Not Reportable 02/16/21 Unknown Acanthocytes (Spur) Not Reportable 02/16/21 Unknown Rouleaux Not Reportable 02/16/21 Unknown Hemoglobin C Crystals Not Reportable 02/16/21 Unknown Schistocytes Not Reportable 02/16/21 Unknown Malaria parasites Not Reportable 02/16/21 Unknown Aquiles Bodies Not Reportable 02/16/21 Unknown Hem Pathologist Commnt No 02/16/21 Unknown PT 14.9 Sec. (12.2-14.9) 02/11/21 08:27 INR 1.17 (0.87-1.13) H 02/11/21 08:27 D-Dimer 1722.16 ng/mlDDU (0-234) H 02/13/21 07:38 ABG pH 7.307 (7.320-7.450) L 02/16/21 03:44 POC ABG pCO2 59.5 mmHg (32.0-48.0) H 02/16/21 03:44 ABG pCO2 51.2 mm Hg 02/12/21 04:41 POC ABG pO2 63.2 mmHg (83-108) L 02/16/21 03:44 ABG pO2 69.0 mm Hg (80.0-90.0) L 02/12/21 04:41 POC ABG HCO3 29.1 02/16/21 03:44 ABG HCO3 32.5 mmol/L (20.0-26.0) H 02/12/21 04:41 ABG O2 Saturation 90.1 (0-100) 02/16/21 03:44 ABG O2 Content 4.3 (0.0-44) 02/12/21 04:41 POC ABG Base Excess 2.0 02/16/21 03:44 ABG Base Excess 7.7 mmol/L (-2.0-3.0) H 02/12/21 04:41 ABG Hemoglobin 9.3 (12.0-17.5) L 02/16/21 03:44 ABG Oxyhemoglobin 88.8 (94-98) L 02/15/21 05:00 ABG Carboxyhemoglobin 2.4 % (0.0-5.0) 02/12/21 04:41 ABG Methemoglobin 0.3 (0.0-1.5) 02/15/21 05:00 ABG Sodium 136.2 mmol/L (136.0-145.0) 02/16/21 03:44 ABG Potassium 4.3 mmol/L (3.40-4.50) 02/16/21 03:44 ABG Chloride 103.0 mmol/L (98-107) 02/16/21 03:44 ABG Glucose 148 mg/dL (65-95) H 02/16/21 03:44 Oxyhemoglobin 94.7 % (95.0-99.0) L 02/12/21 04:41 Carboxyhemoglobin 1.6 (0.5-1.5) H 02/15/21 05:00 FiO2 75 % 02/12/21 04:41 FiO2 % 75 02/16/21 03:44 Sodium 139 mmol/L (137-145) 02/16/21 06:00 Potassium 4.4 mmol/L (3.6-5.0) 02/16/21 06:00 Chloride 100.3 mmol/L (98-107) 02/16/21 06:00 Carbon Dioxide 30 mmol/L (22-30) 02/16/21 06:00 Anion Gap 13 mmol/L 02/16/21 06:00 BUN 52 mg/dL (9-20) H 02/16/21 06:00 Creatinine 6.0 mg/dL (0.8-1.3) H 02/16/21 06:00 Estimated GFR 12 ml/min 02/16/21 06:00 BUN/Creatinine Ratio 9 % 02/16/21 06:00 Glucose 138 mg/dL (75-100) H 02/16/21 06:00 POC Glucose 135 mg/dL (70-105) H 02/16/21 05:26 Hemoglobin A1c 6.3 % (4-6) H 02/02/21 16:00 Lactic Acid 1.90 mmol/L (0.7-2.0) 01/24/21 14:38 Calcium 9.0 mg/dL (8.4-10.2) 02/16/21 06:00 Phosphorus 3.90 mg/dL (2.5-4.5) 02/13/21 06:40 Magnesium 1.60 mg/dL (1.7-2.3) L 02/13/21 06:40 Ferritin 976.5 ng/mL (30.0-300.0) H 02/13/21 07:38 Total Bilirubin 1.50 mg/dL (0.1-1.2) H 01/26/21 05:47 AST 37 units/L (5-40) 01/26/21 05:47 ALT 29 units/L (7-56) 01/26/21 05:47 Alkaline Phosphatase 70 units/L (35-129) 01/26/21 05:47 Lactate Dehydrogenase 649 units/L (91-180) H 02/11/21 09:00 C-Reactive Protein 16.80 mg/dL (0.00-1.30) H 02/13/21 06:40 Total Protein 7.2 g/dL (6.3-8.2) 01/26/21 05:47 Albumin 2.2 g/dL (3.9-5) L 01/26/21 05:47 Albumin/Globulin Ratio 0.4 % 01/26/21 05:47 Triglycerides 182 mg/dL (2-149) H 02/12/21 10:45 Procalcitonin 0.92 ng/mL (<0.15) 01/22/21 22:57 Arterial Blood Glucose 148 mg/dL (65-95) H 02/16/21 03:44 Arterial Blood Ionized Calcium 5.0 mg/dL (4.6-5.3) 02/16/21 03:44 Urine Color Nehal (Yellow) 01/22/21 22:39 Urine Turbidity Cloudy (Clear) 01/22/21 22:39 Urine pH 5.0 (5.0-7.0) 01/22/21 22:39 Ur Specific Silver [place] 1.017 (1.003-1.030) 01/22/21 22:39 Urine Protein 100 mg/dl mg/dL (Negative) 01/22/21 22:39 Urine Glucose (UA) Neg mg/dL (Negative) 01/22/21 22:39 Urine Ketones Neg mg/dL (Negative) 01/22/21 22:39 Urine Blood Mod (Negative) 01/22/21 22:39 Urine Nitrite Neg (Negative) 01/22/21 22:39 Urine Bilirubin Neg (Negative) 01/22/21 22:39 Urine Urobilinogen 2.0 mg/dL (<2.0) 01/22/21 22:39 Ur Leukocyte Esterase Mod (Negative) 01/22/21 22:39 Urine WBC (Auto) < 1.0 /HPF (0.0-6.0) 01/22/21 22:39 Urine RBC (Auto) < 1.0 /HPF (0.0-6.0) 01/22/21 22:39 U Epithel Cells (Auto) < 1.0 /HPF (0-13.0) 01/22/21 22:39 Urine Osmolality 416 Mosm/kg 01/30/21 12:15 Urine Total Volume 2300 ml 01/30/21 12:00 Urine Creatinine 53.0 mg/dL (0.1-20.0) H 01/30/21 12:00 Ur Creatinine 24 Hour 1.2 (0.8-2.8) 01/30/21 12:00 Urine Sodium 28 mmol/L 01/22/21 22:39 Nasal Screen MRSA (PCR) Negative (Negative) 02/02/21 13:20 Random Vancomycin 13.7 ug/mL (0-40.0) 02/07/21 10:40 Coronavirus (PCR) Positive (Negative) A 01/23/21 08:41 Hepatitis A IgM Ab Non-reactive (NonReactive) 02/03/21 Unknown Hep Bs Antigen Non-reactive (Negative) 02/03/21 Unknown Hep B Core IgM Ab Non-reactive (NonReactive) 02/03/21 Unknown Hepatitis C Antibody Non-reactive (NonReactive) 02/03/21 Unknown Blood Type B POSITIVE 02/14/21 11:00 Antibody Screen Negative 02/14/21 11:00 Crossmatch See Detail 02/14/21 11:00 Microbiology: Microbiology 02/04/21 16:01 Peripheral/Venous Blood Culture - Final Coag Negative Staphylococcus 02/04/21 16:01 Peripheral/Venous Blood Culture - Final Coag Negative Staphylococcus Black/IV: Voiding Method Incontinent Active Medications - Current Medications Current Medications: Generic Name Dose Route Start Last Admin Trade Name Freq PRN Reason Stop Dose Admin Acetaminophen 650 mg 01/23/21 02:25 02/11/21 18:20 Acetaminophen 650 Mg Rect Supp SC 650 mg Q4H PRN Administration Pain, Mild (1-3) Acetaminophen 650 mg 01/24/21 12:58 02/15/21 18:06 Acetaminophen 325 Mg/10.15 Ml Oral Liqd Unit Dose FEEDTUBE 650 mg Q6H PRN Administration Pain, Mild (1-3) Lipase/Protease/Amylase 1 each 01/26/21 14:25 Lipase 10,500/Protease 25,000/Amylase 43,750 (Units) Dr Cap FEEDTUBE PRN PRN For Clogged Feeding Tube Dextrose 50 ml 01/27/21 07:24 Dextrose 50% In Water (25gm) 50 Ml Syringe IV Q30MIN PRN Hypoglycemia Protocol Fentanyl 50 mcg 01/22/21 22:39 02/10/21 13:46 Fentanyl 100 Mcg/2 Ml Inj IV 50 mcg Q10MIN PRN Administration ANALGESIA Heparin Sodium (Porcine) 2,000 unit 02/11/21 09:38 Heparin 10,000 Units/10 Ml Vial IV SAGRARIO PRN hemodialysis Hydrophilic Ointment 1 applic 01/22/21 22:39 Lip Therapy Vaseline TP Q2HR PRN Dry Lips Fentanyl Citrate 2,000 mcg in 100 mls @ 6.124 mls/hr 01/22/21 23:00 02/16/21 12:31 Fentanyl Drip Premix IV 2 mcg/kg/hr TITR CECE 12.247 mls/hr Titration Protocol 1 MCG/KG/HR Propofol 1,000 mg in 100 mls @ 3.674 mls/hr 01/22/21 23:45 02/16/21 14:09 Diprivan 10 Mg/Ml IV 15 mcg/kg/min TITR CECE 11.022 mls/hr Titration Protocol 5 MCG/KG/MIN Norepinephrine 4 mg in 250 mls @ 7.5 mls/hr 01/28/21 14:00 02/08/21 06:08 Levophed Drip 4 Mg/Ns 250 Ml IV 0 mcg/min TITR CECE 0 mls/hr Titration Protocol 2 MCG/MIN Dexmedetomidine HCl 1,000 mcg/ 260 mls @ 6.368 mls/hr 01/30/21 20:00 02/16/21 13:33 Sodium Chloride IV 1 mcg/kg/hr TITRATE CECE 31.842 mls/hr Administration Protocol 0.2 MCG/KG/HR Sodium Chloride 100 mls @ 999 mls/hr 02/14/21 11:00 Nacl 0.9% IV SAGRARIO PRN Hypotension Sodium Chloride 100 mls @ 999 mls/hr 02/15/21 16:45 Nacl 0.9% IV SAGRARIO PRN Hypotension Multi-Ingred Cream/Lotion/Oil/Oint 1 applic 01/22/21 22:39 02/01/21 09:33 Mineral Oil/Petrolatum, White Ophth Oint 3.5 Gm OU 1 applic Q4HR PRN Administration Dry Eye(s) Ondansetron HCl 4 mg 01/23/21 02:17 Ondansetron 4 Mg/2 Ml Inj IV Q8H PRN Nausea And Vomiting Pantoprazole Sodium 40 mg 02/15/21 10:00 02/16/21 10:59 Pantoprazole 40 Mg Inj IV 40 mg DAILY CECE Administration Simple Syrup 15 ml 01/26/21 14:25 Simple Syrup 15 Ml FEEDTUBE PRN PRN Hypoglycemia Simple Syrup 30 ml 01/26/21 14:25 Simple Syrup 15 Ml FEEDTUBE PRN PRN Hypoglycemia Sodium Bicarbonate 325 mg 01/26/21 14:25 Sodium Bicarbonate 325 Mg Tab FEEDTUBE PRN PRN For Clogged Feeding Tube Nutrition/Malnutrition Assess - Dietary Evaluation Nutrition/Malnutrition Findings: Nutrition Notes Start: 01/26/21 13:59 Freq: Status: Active Protocol: Document 02/13/21 12:00 CW (Rec: 02/13/21 12:14 CW [id number]) Nutrition Notes Initial or Follow up Reassessment Current Diagnosis Acute Kidney Injury,Diabetes, Sepsis,Hypertension, Respiratory Failure, Hyperlipidemia Other Pertinent Diagnosis on HD, COVID-19 (+), bilat pneu Current Diet TF - Nepro at 36 ml/hr Labs/Tests Na 135 K 3.4 BUN 46 Cr 5.8 BG 148 Pertinent Medications NaHCO3 150 mEq in D at 100 ml/ hr KCl 40 mEq Height 5 ft 8 in Weight 161.3 kg [place] Body Weight (kg) 70.00 BMI 54.1 Weight change and time frame wt increase likely r/t to HD need Weight Status Morbidly Obese Subjective/Other Information F/U mechanical vent, propofol, and TF tolerance. Pt continues to tolerate TF. Pt is not receiving propofol at this time with. Pt received HD today. Per RN 7L fluid removed, likely. TF off at this time or medication per RN and will be restarted soon. Hold TF no appropriate unless rx presdription specifically states that feeds need to be held. Pt is anuric at this time. Per chart, flushes are being administered at 100 ml q4h. Once hyponatremia resolves recommend returning to ordered flush. Burn Absent Trauma Absent GI Symptoms None Difficulty In Swallowing Skin Integrity/Comment Intact Current % PO Negligible Minimum of two criteria No Fluid Accumulation Mild (non-severe) #1 Nutrition Diagnosis Inadequate oral intake Diagnosis Progress(for reassessment Continues documentation) Is patient on ventilator? Yes Is Patient Ambulatory and/or Out of Bed No REE-([facility]-confined to bed) 2869.020 Kcal/Kg value to use for calculation 12 Approximate Energy Requirements Using 1936 kcal/Kg Calculation Used for Recommendations Kcal/kg Additional Notes Pro needs >1.2g/kg adjBW: > 115g/day for HD needs Fluid needs 500+ total output or per MD Nutrition Intervention Change Diet Order: Restart TF Nutrition Support: If running continuous feed x 24 hrs without proning: Nepro at 36 ml/hr with a free water flush 200 ml q4h. If in prone position x 12/hr day: While in prone position: Nepro at 20 ml/hr with free water flush of 100 ml q4h or per MD order. While in supine position: Nepro at 65 ml/hr with a free water flush of 200 ml q4h or per MD order. Kcal 1,555 Protein (gm) 70 Fluid (mL) 628 Goal #1 TF tolerance Goal #2 TF to meet at least 75% energy and pro needs Anticipated Discharge Needs: unable to determine at this time Follow-Up By: 02/17/21 Additional Comments F/U for TF tolerance and Na levels <DENNYS HOANG R - Last Filed: 02/16/21 23:42> Assessment and Plan Assessment and plan: I saw and evaluated the patient. I agree with the findings and the plan of care as documented in the Nurse Practitioner's~note. Hospitalist Physical - Constitutional Vitals: Temp Pulse Resp BP Pulse Ox 99.5 F 86 36 H 93/58 94 02/16/21 20:00 02/16/21 23:00 02/16/21 23:00 02/16/21 23:00 02/16/21 23:00 Results - Labs CBC & Chem 7: 02/16/21 Unknown 02/16/21 06:00 Labs: Laboratory Last Values WBC 8.9 K/mm3 (4.5-11.0) 02/16/21 Unknown RBC 2.19 M/mm3 (3.65-5.03) L 02/16/21 Unknown Hgb 7.1 gm/dl (11.8-15.2) L 02/16/21 Unknown Hct 21.3 % (35.5-45.6) L 02/16/21 Unknown MCV 98 fl (84-94) H 02/16/21 Unknown MCH 33 pg (28-32) H 02/16/21 Unknown MCHC 33 % (32-34) 02/16/21 Unknown RDW 16.0 % (13.2-15.2) H 02/16/21 Unknown Plt Count 258 K/mm3 (140-440) 02/16/21 Unknown Lymph % (Auto) 11.0 % (13.4-35.0) L 02/15/21 05:00 [place] % (Auto) 4.2 % (0.0-7.3) 02/15/21 05:00 Eos % (Auto) 1.2 % (0.0-4.3) 02/15/21 05:00 Baso % (Auto) 0.6 % (0.0-1.8) 02/15/21 05:00 Lymph # (Auto) 1.1 K/mm3 (1.2-5.4) L 02/15/21 05:00 Isabel[place] # (Auto) 0.4 K/mm3 (0.0-0.8) 02/15/21 05:00 Eos # (Auto) 0.1 K/mm3 (0.0-0.4) 02/15/21 05:00 Baso # (Auto) 0.1 K/mm3 (0.0-0.1) 02/15/21 05:00 Add Manual Diff Complete 02/16/21 Unknown Total Counted 100 02/16/21 Unknown Seg Neutrophils % 83.0 % (40.0-70.0) H 02/15/21 05:00 Seg Neuts % (Manual) 85.0 % (40.0-70.0) H 02/16/21 Unknown Band Neutrophils % 2.0 % 02/16/21 Unknown Lymphocytes % (Manual) 6.0 % (13.4-35.0) L 02/16/21 Unknown Reactive Lymphs % (Man) 1.0 % 01/27/21 05:29 Monocytes % (Manual) 5.0 % (0.0-7.3) 02/16/21 Unknown Eosinophils % (Manual) 1.0 % (0.0-4.3) 02/16/21 Unknown Basophils % (Manual) 1.0 % (0.0-1.8) 02/06/21 Unknown Metamyelocytes % 1.0 % 02/16/21 Unknown Nucleated RBC % 4.0 % (0.0-0.9) H 02/16/21 Unknown Seg Neutrophils # 8.6 K/mm3 (1.8-7.7) H 02/15/21 05:00 Seg Neutrophils # Man 7.6 K/mm3 (1.8-7.7) 02/16/21 Unknown Band Neutrophils # 0.2 K/mm3 02/16/21 Unknown Lymphocytes # (Manual) 0.5 K/mm3 (1.2-5.4) L 02/16/21 Unknown Abs React Lymphs (Man) 0.0 K/mm3 02/16/21 Unknown Monocytes # (Manual) 0.4 K/mm3 (0.0-0.8) 02/16/21 Unknown Eosinophils # (Manual) 0.1 K/mm3 (0.0-0.4) 02/16/21 Unknown Basophils # (Manual) 0.0 K/mm3 (0.0-0.1) 02/16/21 Unknown Metamyelocytes # 0.1 K/mm3 02/16/21 Unknown Myelocytes # 0.0 K/mm3 02/16/21 Unknown Promyelocytes # 0.0 K/mm3 02/16/21 Unknown Blast Cells # 0.0 K/mm3 02/16/21 Unknown WBC Morphology Not Reportable 02/16/21 Unknown Hypersegmented Neuts Not Reportable 02/16/21 Unknown Hyposegmented Neuts Not Reportable 02/16/21 Unknown Hypogranular Neuts Not Reportable 02/16/21 Unknown Smudge Cells Not Reportable 02/16/21 Unknown Toxic Granulation Not Reportable 02/16/21 Unknown Toxic Vacuolation Not Reportable 02/16/21 Unknown Dohle Bodies Not Reportable 02/16/21 Unknown Pelger-Huet Anomaly Not Reportable 02/16/21 Unknown Fátima Rods Not Reportable 02/16/21 Unknown Platelet Estimate Consistent w auto 02/16/21 Unknown Clumped Platelets Not Reportable 02/16/21 Unknown Plt Clumps, EDTA Not Reportable 02/16/21 Unknown Large Platelets Not Reportable 02/16/21 Unknown Giant Platelets Not Reportable 02/16/21 Unknown Platelet Satelliting Not Reportable 02/16/21 Unknown Plt Morphology Comment Not Reportable 02/16/21 Unknown RBC Morphology Not Reportable 02/16/21 Unknown Dimorphic RBCs Not Reportable 02/16/21 Unknown Polychromasia Not Reportable 02/16/21 Unknown Hypochromasia Not Reportable 02/16/21 Unknown Poikilocytosis Not Reportable 02/16/21 Unknown Anisocytosis 1+ 02/16/21 Unknown Microcytosis Not Reportable 02/16/21 Unknown Macrocytosis Not Reportable 02/16/21 Unknown Spherocytes Not Reportable 02/16/21 Unknown Pappenheimer Bodies Not Reportable 02/16/21 Unknown Sickle Cells Not Reportable 02/16/21 Unknown Target Cells Not Reportable 02/16/21 Unknown Tear Drop Cells Not Reportable 02/16/21 Unknown Ovalocytes Not Reportable 02/16/21 Unknown Helmet Cells Not Reportable 02/16/21 Unknown [place] Bodies Not Reportable 02/16/21 Unknown [place] Rings Not Reportable 02/16/21 Unknown Dequincy Cells Not Reportable 02/16/21 Unknown Bite Cells Not Reportable 02/16/21 Unknown Crenated Cell Not Reportable 02/16/21 Unknown Elliptocytes Not Reportable 02/16/21 Unknown Acanthocytes (Spur) Not Reportable 02/16/21 Unknown Rouleaux Not Reportable 02/16/21 Unknown Hemoglobin C Crystals Not Reportable 02/16/21 Unknown Schistocytes Not Reportable 02/16/21 Unknown Malaria parasites Not Reportable 02/16/21 Unknown Aquiles Bodies Not Reportable 02/16/21 Unknown Hem Pathologist Commnt No 02/16/21 Unknown PT 14.9 Sec. (12.2-14.9) 02/11/21 08:27 INR 1.17 (0.87-1.13) H 02/11/21 08:27 D-Dimer 4256.08 ng/mlDDU (0-234) H 02/16/21 17:09 ABG pH 7.307 (7.320-7.450) L 02/16/21 03:44 POC ABG pCO2 59.5 mmHg (32.0-48.0) H 02/16/21 03:44 ABG pCO2 51.2 mm Hg 02/12/21 04:41 POC ABG pO2 63.2 mmHg (83-108) L 02/16/21 03:44 ABG pO2 69.0 mm Hg (80.0-90.0) L 02/12/21 04:41 POC ABG HCO3 29.1 02/16/21 03:44 ABG HCO3 32.5 mmol/L (20.0-26.0) H 02/12/21 04:41 ABG O2 Saturation 90.1 (0-100) 02/16/21 03:44 ABG O2 Content 4.3 (0.0-44) 02/12/21 04:41 POC ABG Base Excess 2.0 02/16/21 03:44 ABG Base Excess 7.7 mmol/L (-2.0-3.0) H 02/12/21 04:41 ABG Hemoglobin 9.3 (12.0-17.5) L 02/16/21 03:44 ABG Oxyhemoglobin 88.8 (94-98) L 02/15/21 05:00 ABG Carboxyhemoglobin 2.4 % (0.0-5.0) 02/12/21 04:41 ABG Methemoglobin 0.3 (0.0-1.5) 02/15/21 05:00 ABG Sodium 136.2 mmol/L (136.0-145.0) 02/16/21 03:44 ABG Potassium 4.3 mmol/L (3.40-4.50) 02/16/21 03:44 ABG Chloride 103.0 mmol/L (98-107) 02/16/21 03:44 ABG Glucose 148 mg/dL (65-95) H 02/16/21 03:44 Oxyhemoglobin 94.7 % (95.0-99.0) L 02/12/21 04:41 Carboxyhemoglobin 1.6 (0.5-1.5) H 02/15/21 05:00 FiO2 75 % 02/12/21 04:41 FiO2 % 75 02/16/21 03:44 Sodium 139 mmol/L (137-145) 02/16/21 06:00 Potassium 4.4 mmol/L (3.6-5.0) 02/16/21 06:00 Chloride 100.3 mmol/L (98-107) 02/16/21 06:00 Carbon Dioxide 30 mmol/L (22-30) 02/16/21 06:00 Anion Gap 13 mmol/L 02/16/21 06:00 BUN 52 mg/dL (9-20) H 02/16/21 06:00 Creatinine 6.0 mg/dL (0.8-1.3) H 02/16/21 06:00 Estimated GFR 12 ml/min 02/16/21 06:00 BUN/Creatinine Ratio 9 % 02/16/21 06:00 Glucose 138 mg/dL (75-100) H 02/16/21 06:00 POC Glucose 150 mg/dL (70-105) H 02/16/21 23:16 Hemoglobin A1c 6.3 % (4-6) H 02/02/21 16:00 Lactic Acid 1.90 mmol/L (0.7-2.0) 01/24/21 14:38 Calcium 9.0 mg/dL (8.4-10.2) 02/16/21 06:00 Phosphorus 3.90 mg/dL (2.5-4.5) 02/13/21 06:40 Magnesium 1.70 mg/dL (1.7-2.3) 02/16/21 17:09 Ferritin 980.6 ng/mL (30.0-300.0) H 02/16/21 17:09 Total Bilirubin 1.50 mg/dL (0.1-1.2) H 01/26/21 05:47 AST 37 units/L (5-40) 01/26/21 05:47 ALT 29 units/L (7-56) 01/26/21 05:47 Alkaline Phosphatase 70 units/L (35-129) 01/26/21 05:47 Lactate Dehydrogenase 441 units/L (91-180) H 02/16/21 17:09 C-Reactive Protein 20.20 mg/dL (0.00-1.30) H 02/16/21 17:09 Total Protein 7.2 g/dL (6.3-8.2) 01/26/21 05:47 Albumin 2.2 g/dL (3.9-5) L 01/26/21 05:47 Albumin/Globulin Ratio 0.4 % 01/26/21 05:47 Triglycerides 182 mg/dL (2-149) H 02/12/21 10:45 Procalcitonin 0.92 ng/mL (<0.15) 01/22/21 22:57 Arterial Blood Glucose 148 mg/dL (65-95) H 02/16/21 03:44 Arterial Blood Ionized Calcium 5.0 mg/dL (4.6-5.3) 02/16/21 03:44 Urine Color Nehal (Yellow) 01/22/21 22:39 Urine Turbidity Cloudy (Clear) 01/22/21 22:39 Urine pH 5.0 (5.0-7.0) 01/22/21 22:39 Ur Specific Silver Plume 1.017 (1.003-1.030) 01/22/21 22:39 Urine Protein 100 mg/dl mg/dL (Negative) 01/22/21 22:39 Urine Glucose (UA) Neg mg/dL (Negative) 01/22/21 22:39 Urine Ketones Neg mg/dL (Negative) 01/22/21 22:39 Urine Blood Mod (Negative) 01/22/21 22:39 Urine Nitrite Neg (Negative) 01/22/21 22:39 Urine Bilirubin Neg (Negative) 01/22/21 22:39 Urine Urobilinogen 2.0 mg/dL (<2.0) 01/22/21 22:39 Ur Leukocyte Esterase Mod (Negative) 01/22/21 22:39 Urine WBC (Auto) < 1.0 /HPF (0.0-6.0) 01/22/21 22:39 Urine RBC (Auto) < 1.0 /HPF (0.0-6.0) 01/22/21 22:39 U Epithel Cells (Auto) < 1.0 /HPF (0-13.0) 01/22/21 22:39 Urine Osmolality 416 Mosm/kg 01/30/21 12:15 Urine Total Volume 2300 ml 01/30/21 12:00 Urine Creatinine 53.0 mg/dL (0.1-20.0) H 01/30/21 12:00 Ur Creatinine 24 Hour 1.2 (0.8-2.8) 01/30/21 12:00 Urine Sodium 28 mmol/L 01/22/21 22:39 Nasal Screen MRSA (PCR) Negative (Negative) 02/02/21 13:20 Random Vancomycin 13.7 ug/mL (0-40.0) 02/07/21 10:40 Coronavirus (PCR) Positive (Negative) A 01/23/21 08:41 Hepatitis A IgM Ab Non-reactive (NonReactive) 02/03/21 Unknown Hep Bs Antigen Non-reactive (Negative) 02/03/21 Unknown Hep B Core IgM Ab Non-reactive (NonReactive) 02/03/21 Unknown Hepatitis C Antibody Non-reactive (NonReactive) 02/03/21 Unknown Blood Type B POSITIVE 02/14/21 11:00 Antibody Screen Negative 02/14/21 11:00 Crossmatch See Detail 02/14/21 11:00 Microbiology: Microbiology 02/04/21 16:01 Peripheral/Venous Blood Culture - Final Coag Negative Staphylococcus 02/04/21 16:01 Peripheral/Venous Blood Culture - Final Coag Negative Staphylococcus Black/IV: Voiding Method Incontinent Active Medications - Current Medications Current Medications: Generic Name Dose Route Start Last Admin Trade Name Freq PRN Reason Stop Dose Admin Acetaminophen 650 mg 01/23/21 02:25 02/11/21 18:20 Acetaminophen 650 Mg Rect Supp SC 650 mg Q4H PRN Administration Pain, Mild (1-3) Acetaminophen 650 mg 01/24/21 12:58 02/15/21 18:06 Acetaminophen 325 Mg/10.15 Ml Oral Liqd Unit Dose FEEDTUBE 650 mg Q6H PRN Administration Pain, Mild (1-3) Lipase/Protease/Amylase 1 each 01/26/21 14:25 Lipase 10,500/Protease 25,000/Amylase 43,750 (Units) Dr Claudio FEEDTUBE PRN PRN For Clogged Feeding Tube Dextrose 50 ml 01/27/21 07:24 Dextrose 50% In Water (25gm) 50 Ml Syringe IV Q30MIN PRN Hypoglycemia Protocol Fentanyl 50 mcg 01/22/21 22:39 02/10/21 13:46 Fentanyl 100 Mcg/2 Ml Inj IV 50 mcg Q10MIN PRN Administration ANALGESIA Heparin Sodium (Porcine) 2,000 unit 02/11/21 09:38 Heparin 10,000 Units/10 Ml Vial IV SAGRARIO PRN hemodialysis Hydrophilic Ointment 1 applic 01/22/21 22:39 Lip Therapy Vaseline TP Q2HR PRN Dry Lips Fentanyl Citrate 2,000 mcg in 100 mls @ 6.124 mls/hr 01/22/21 23:00 02/16/21 22:57 Fentanyl Drip Premix IV 4 mcg/kg/hr TITR CECE 24.494 mls/hr Administration Protocol 1 MCG/KG/HR Propofol 1,000 mg in 100 mls @ 3.674 mls/hr 01/22/21 23:45 02/16/21 23:29 Diprivan 10 Mg/Ml IV 20 mcg/kg/min TITR CECE 14.696 mls/hr Administration Protocol 5 MCG/KG/MIN Norepinephrine 4 mg in 250 mls @ 7.5 mls/hr 01/28/21 14:00 02/08/21 06:08 Levophed Drip 4 Mg/Ns 250 Ml IV 0 mcg/min TITR CECE 0 mls/hr Titration Protocol 2 MCG/MIN Dexmedetomidine HCl 1,000 mcg/ 260 mls @ 6.368 mls/hr 01/30/21 20:00 02/16/21 23:36 Sodium Chloride IV 0 mcg/kg/hr TITRATE CECE 0 mls/hr Titration Protocol 0.2 MCG/KG/HR Sodium Chloride 100 mls @ 999 mls/hr 02/14/21 11:00 Nacl 0.9% IV SAGRARIO PRN Hypotension Sodium Chloride 100 mls @ 999 mls/hr 02/15/21 16:45 Nacl 0.9% IV SAGRARIO PRN Hypotension Multi-Ingred Cream/Lotion/Oil/Oint 1 applic 01/22/21 22:39 02/01/21 09:33 Mineral Oil/Petrolatum, White Ophth Oint 3.5 Gm OU 1 applic Q4HR PRN Administration Dry Eye(s) Ondansetron HCl 4 mg 01/23/21 02:17 Ondansetron 4 Mg/2 Ml Inj IV Q8H PRN Nausea And Vomiting Pantoprazole Sodium 40 mg 02/15/21 10:00 02/16/21 10:59 Pantoprazole 40 Mg Inj IV 40 mg DAILY CECE Administration Simple Syrup 15 ml 01/26/21 14:25 Simple Syrup 15 Ml FEEDTUBE PRN PRN Hypoglycemia Simple Syrup 30 ml 01/26/21 14:25 Simple Syrup 15 Ml FEEDTUBE PRN PRN Hypoglycemia Sodium Bicarbonate 325 mg 01/26/21 14:25 Sodium Bicarbonate 325 Mg Tab FEEDTUBE PRN PRN For Clogged Feeding Tube Nutrition/Malnutrition Assess - Dietary Evaluation Nutrition/Malnutrition Findings: Nutrition Notes Start: 01/26/21 13:59 Freq: Status: Active Protocol: Document 02/13/21 12:00 CW (Rec: 02/13/21 12:14 CW [id number]) Nutrition Notes Initial or Follow up Reassessment Current Diagnosis Acute Kidney Injury,Diabetes, Sepsis,Hypertension, Respiratory Failure, Hyperlipidemia Other Pertinent Diagnosis on HD, COVID-19 (+), bilat pneu Current Diet TF - Nepro at 36 ml/hr Labs/Tests Na 135 K 3.4 BUN 46 Cr 5.8 BG 148 Pertinent Medications NaHCO3 150 mEq in D at 100 ml/ hr KCl 40 mEq Height 5 ft 8 in Weight 161.3 kg [place] Body Weight (kg) 70.00 BMI 54.1 Weight change and time frame wt increase likely r/t to HD need Weight Status Morbidly Obese Subjective/Other Information F/U mechanical vent, propofol, and TF tolerance. Pt continues to tolerate TF. Pt is not receiving propofol at this time with. Pt received HD today. Per RN 7L fluid removed, likely. TF off at this time or medication per RN and will be restarted soon. Hold TF no appropriate unless rx presdription specifically states that feeds need to be held. Pt is anuric at this time. Per chart, flushes are being administered at 100 ml q4h. Once hyponatremia resolves recommend returning to ordered flush. Burn Absent Trauma Absent GI Symptoms None Difficulty In Swallowing Skin Integrity/Comment Intact Current % PO Negligible Minimum of two criteria No Fluid Accumulation Mild (non-severe) #1 Nutrition Diagnosis Inadequate oral intake Diagnosis Progress(for reassessment Continues documentation) Is patient on ventilator? Yes Is Patient Ambulatory and/or Out of Bed No REE-([facility]-confined to bed) 2869.020 Kcal/Kg value to use for calculation 12 Approximate Energy Requirements Using 1936 kcal/Kg Calculation Used for Recommendations Kcal/kg Additional Notes Pro needs >1.2g/kg adjBW: > 115g/day for HD needs Fluid needs 500+ total output or per MD Nutrition Intervention Change Diet Order: Restart TF Nutrition Support: If running continuous feed x 24 hrs without proning: Nepro at 36 ml/hr with a free water flush 200 ml q4h. If in prone position x 12/hr day: While in prone position: Nepro at 20 ml/hr with free water flush of 100 ml q4h or per MD order. While in supine position: Nepro at 65 ml/hr with a free water flush of 200 ml q4h or per MD order. Kcal 1,555 Protein (gm) 70 Fluid (mL) 628 Goal #1 TF tolerance Goal #2 TF to meet at least 75% energy and pro needs Anticipated Discharge Needs: unable to determine at this time Follow-Up By: 02/17/21 Additional Comments F/U for TF tolerance and Na levels
[2021-02-16 17:56] LABS: C-Reactive Protein 20.2 mg/dL (0.00-1.30)
[2021-02-17] MEDS: fentaNYL DRIP Premix 2,000 MCG/100 ML BAG IV SCH ×3 (03:53→19:57)
[2021-02-17 04:55] LABS: Hemoglobin 6.9 gm/dl (11.8-15.2); Mean Corpuscular HGB Conc 33 % (32-34); Mean Corpuscular Volume 98 fl (84-94); Platelet Count 213 K/mm3 (140-440); Red Blood Count 2.14 M/mm3 (3.65-5.03); Red Cell Distribution Width 15.8 % (13.2-15.2)
[2021-02-17] MEDS: dexmedeTOMIDine 1,000 MCG in SODIUM CHLORIDE 0.9% 250ML 250 ML IV SCH ×4 (05:01→22:56)
[2021-02-17 05:15] LABS: Calcium 8.7 mg/dL (8.4-10.2)
[2021-02-17 06:43] LABS: C-Reactive Protein 22.1 mg/dL (0.00-1.30)
[2021-02-17] MEDS: PANTOPRAZOLE 40 MG INJ IV SCH (11:18)
[2021-02-17] MEDS: LIP THERAPY VASELINE TP PRN ×2 (11:19→17:14)
--- NOTE | 2021-02-17 11:52 | Progress Note ---
Assessment and Plan 60 y/o male with ARDS secondary most likely to COVID 19 pneumonia. 02/17/21: Fine with cutting back on HD as not really helped with oxygenation. Continue to wean as tolerated for sats >88% and PaO2 >55. Sedation to achieve negative rass scoring. very very guarded to poor prognosis. 02/16/21: HD now. Wean FiO2 for sats> 88%. Agree with stopping ativan and holding on starting diprovan to see if the patient truly needs it. pH holding off bicarb drip goal is >7.2. Very very guarded to poor prognosis. 02/13/21: HD again now. Replace electrolytes per renal. Continue abx therapy per ID. Will get RT to wean FiO2 as not done on yesterday. Will restart diprovan post HD and stop ativan. Check Levels (Triglycerides on Tue or T ). Can stop bicarb drip however must make sure that ABG is checked daily to make sure that pH is good. Very very guarded prognosis. 02/12/21: HD again today. Had a 12 second run of VTACH today as well. Stable. K is low, checking mag levels. Will alert Renal so they can adjust bath as ne eded. Post HD will start to wean FiO2 again. Unable to prone as patient does not tolerate. Repeat blood cultures negative and first set only showing Coag Negative Staph. Prognosis still remains very very guarded to poor. Will consider restarting Diprovan tomorrow. Patient now intubated for 20 days now but not candidate for trach yet given elevated PEEP and FiO2 levels but did discuss on rounds. 02/11/21: Vascath placed today for HD. Orders already in. Wean FiO2 for sats >88%. Abx per ID. Repeat cultures so far negative. Given persistent fevers, will check upper ext dopplers. Prognosis still remains guarded. 02/10/21: Triglycerides improved but current sedation is adequate so will hold on stopping ativan to add propofol back. Awaiting Labs from this morning. Plan to replace HD catheter tomorrow morning as early as possible. Fever curve is trending down. Continue bicarb drip for now. Prognosis remains guarded. WIll speak with family tomorrow to update. 02/09/21: Repeat Triglycerides today. Follow up repeat blood cultures. Given continued fever will hold on replacing vascath today. If fever free the next 24 hours, can place in the morning or Tuesday morning. Will likely need blood with next HD session. Continue bicarb drip to help manage respiratory as well as metabolic acidosis. Wean FiO2 for sats >88% and PaO2 >55. Overall prognosis remains guarded to poor. 02/08/21: Picc out today. Will repeat culture if patient spikes again today. Plan to replace HD catheter either late tomorrow or Tuesday. Continue current level of sedation. Abx therapy per ID. Wean FiO2 as tolerated, doubt will be able to do much until we can resume HD. Guarded prognosis. Replaced potassium. Will need to check in the morning. Will repeat K later this afternoon. 02/07/21: Biggest issue now is that patient's numbers are better with HD but now with bacteremia, concern for line infection. ID is correct in requesting line holiday. Has a picc and an Right IJ Dialysis catheter with 3 ports. Currently getting HD today. Have not seen renal yet. Will pull right IJ line post HD and plan to replace it Tuesday evening or Tuesday. Continue bicarb drip for now and will keep picc as patient has been requiring levophed. If able to be weaned off levophed, will remove picc either tomorrow or Tuesday. Continue Ativan, Precedex and Fent drips, repeat Triglycerides on Tuesday. Very very guarded prognosis. Will remove Black today as well. 02/06/21: Will add bicarb drip at 125/hr. Giving 2 amps of NaHCO3 push now. Will repeat ABG this afternoon, may just ask for Art Line if possible. HD today per renal and I spoke with them about the bicarb drip. Long discussion with Sister, Significant and other and another family member on the phone on yesterday. I tried my best to explain the severity of the clinical state but not sure if they fully understood. The patient is very very ill and history suggests that his outcome will be poor (intubated with covid and renal failure on dialysis). This was expressed with the family. Will continue all supportive measures. Checking triglyceride levels today. 02/05/21: WIll increase PEEP to 16. Can increase pressors if needed for BP control during HD. Follow up cultures. If negative will scan legs and arms again for VTE. Repeat ABG at 1400 today. Will speak with sister and Girlfriend on phone today. 02/04/21: HD again today per renal notes. Likely will need daily HD. New fevers. Will draw blood and urine cultures if able to still make urine.. Repeat CXR. May need to check dopplers if all of those studies are negative. Wean FIO2 as tolerated. Unable to tolerate proning. Guarded to poor prognosis. 02/03/21: HD today per renal. Wean FiO2 as tolerated. No further proning as patient cannot tolerate it, however with volume removal, may consider in the f uture. Use pressors to keep MAPs 65 and greater for HD purporses so volume can be removed. (IJ was wide open (filled with blood)) with patient sitting up at 45 degrees. Guarded prognosis. 02/02/21: After renal speaks with family, will place vascath today. Agree with bicarb drip but will order some pushes now to help with pH. Overall prognosis is very very guarded to poor now that patient is COVID positive and requiring renal replacement therapy. Mortality is very high in these patients. Continue steroid therapy. Unable to tolerate proning. 01/30/21: Will plan for proning later today. Goal will be at least 12hrs but long is okay. Speaking with pharmacy to see if we can get paralytic for a longer period of time. Regardless will prone. Continue heavy sedation. BP stable. Continue steroids. Very very guarded prognosis. 01/29/21: will increase tidal volume and/or increase respiratory rate. Repeat ABG this afternoon. Continue paralytic and adequate sedation. Continue steroid and remdesivir, follow up any renal recs. Prognosis remains guarded. Wean Fio2 for sats >88% 01/28/21: Increased PEEP to 16. Will paralyze patient today and increase sedation. Ordering picc line for possible vasopressor therapy needs. Continue BID steroids. Renal function is slightly better today with fluids but could be making oxygenation worse. Not able to diurese. Still making urine. Continue Remdesivir. Watch for fever curve. If not improvement in the next 24 hours with paralyzing, will prone tomorrow morning. 01/27/21: Continue PEEP at 14. No weaning until FiO2 is at or below 40-45%. Continue anticoagulation. Getting Remdesivir now. Continue BID steroids. Renal has increased the fluids. Monitor urine output and renal function. Overall prognosis is very very guarded, especially if renal status worsens. 01/26/21: Increase PEEP to 14. Will add Precedex therapy. If patient does not respond to increases in PEEP may need to prone. Will place patient on lovenox and will feed patient. Remdesivir coming. Continue BID steroids. Prognosis is guarded. 01/25/21: Hold on proning today. Continue BID steroids. ABG this AM was adequate. Pending abg tomorrow, may increase PEEP if not able to wean FiO2 any further. Per charting Remdesivir to arrive tomorrow. Guarded prognosis. 01/24/21: Continue BID steroids. No abg done this am but able to wean FiO2. W ill obtain ABG in the am. Hold on proning for right now. Renal following, would like to diurese but they are given fluids for deisi. Agree with ID assessment and note. Guarded prognosis. 1. Increase steroids to BID given size 2. Check with ID to see if he is a candidate for remdesivir or any other experiemental therapy 3. Hold on proning for right now 4. Renal consulted and giving IVF's currently Guarded prognosis. CCT 31 minutes. Subjective Date of service: 02/17/21 Principal diagnosis: DEISI Interval history: Clinically no change. Spoke with renal this am regarding frequency of HD. Objective Vital Signs - 12hr 02/17/21 02/17/21 02/17/21 00:00 00:27 00:30 Temperature 99.8 F H Pulse Rate 87 87 87 Pulse Rate [ 87 From Monitor] Respiratory 34 H 34 H Rate Blood Pressure 90/55 88/54 88/54 O2 Sat by Pulse 92 91 91 Oximetry 02/17/21 02/17/21 02/17/21 01:00 01:30 02:00 Temperature Pulse Rate 86 89 87 Pulse Rate [ From Monitor] Respiratory 36 H 34 H 34 H Rate Blood Pressure 87/56 89/56 88/57 O2 Sat by Pulse 92 92 91 Oximetry 02/17/21 02/17/21 02/17/21 02:30 03:00 03:30 Temperature Pulse Rate 84 83 80 Pulse Rate [ From Monitor] Respiratory 34 H 34 H 31 H Rate Blood Pressure 88/57 92/57 90/56 O2 Sat by Pulse 92 92 91 Oximetry 02/17/21 02/17/21 02/17/21 04:00 04:30 05:01 Temperature 99.8 F H Pulse Rate 80 82 82 Pulse Rate [ 81 From Monitor] Respiratory 34 H 34 H 34 H Rate Blood Pressure 87/56 93/59 O2 Sat by Pulse 92 93 93 Oximetry 02/17/21 02/17/21 02/17/21 05:09 05:30 06:00 Temperature Pulse Rate 81 81 86 Pulse Rate [ From Monitor] Respiratory 34 H 34 H Rate Blood Pressure 88/56 87/55 92/58 O2 Sat by Pulse 93 93 92 Oximetry 02/17/21 02/17/21 02/17/21 06:30 07:00 07:30 Temperature Pulse Rate 87 87 86 Pulse Rate [ From Monitor] Respiratory 34 H 34 H 35 H Rate Blood Pressure 93/57 93/58 100/63 O2 Sat by Pulse 93 93 92 Oximetry 02/17/21 02/17/21 02/17/21 07:59 08:00 08:30 Temperature 99.2 F Pulse Rate 89 89 86 Pulse Rate [ 87 From Monitor] Respiratory 35 H 34 H Rate Blood Pressure 106/69 106/69 99/62 O2 Sat by Pulse 96 95 94 Oximetry 02/17/21 02/17/21 02/17/21 09:00 09:30 10:00 Temperature Pulse Rate 86 86 86 Pulse Rate [ From Monitor] Respiratory 35 H 35 H 35 H Rate Blood Pressure 100/62 97/62 94/61 O2 Sat by Pulse 94 94 93 Oximetry 02/17/21 02/17/21 02/17/21 10:03 10:30 11:00 Temperature 99.2 F Pulse Rate 88 89 92 H Pulse Rate [ From Monitor] Respiratory 35 H 36 H 34 H Rate Blood Pressure 94/61 104/63 93/52 O2 Sat by Pulse 93 92 92 Oximetry 02/17/21 11:21 Temperature Pulse Rate 91 H Pulse Rate [ From Monitor] Respiratory Rate Blood Pressure 93/52 O2 Sat by Pulse 92 Oximetry Constitutional: comatose Eyes: non-icteric ENT: other (orally intubated and sedated) Neck: supple Effort: mildly labored Ascultation: Bilateral: clear Percussion: Bilateral: not dull Cardiovascular: regular rate and rhythm (no mrg) Gastrointestinal: normoactive bowel sounds, soft, non-tender, non-distended Integumentary: normal Extremities: no cyanosis, no edema, pink and warm Neurologic: unable to assess CBC and BMP: 02/17/21 04:14 02/17/21 04:14 ABG, PT/INR, D-dimer: ABG ABG pH 7.293 (7.320-7.450) L 02/17/21 04:00 POC ABG pCO2 59.5 mmHg (32.0-48.0) H 02/17/21 04:00 ABG pCO2 51.2 mm Hg 02/12/21 04:41 POC ABG pO2 68.1 mmHg (83-108) L 02/17/21 04:00 ABG pO2 69.0 mm Hg (80.0-90.0) L 02/12/21 04:41 POC ABG HCO3 28.2 02/17/21 04:00 ABG O2 Saturation 91.2 (0-100) 02/17/21 04:00 PT/INR, D-dimer PT 14.9 Sec. (12.2-14.9) 02/11/21 08:27 INR 1.17 (0.87-1.13) H 02/11/21 08:27 D-Dimer 3183.35 ng/mlDDU (0-234) H 02/17/21 04:14 Abnormal lab findings: Abnormal Labs 01/22/21 01/22/21 01/22/21 22:39 22:57 22:57 WBC RBC Hgb Hct MCV MCH MCHC RDW Plt Count Lymph % (Auto) 6.6 L Lymph # (Auto) 0.5 L Seg Neutrophils % 87.6 H Seg Neuts % (Manual) Lymphocytes % (Manual) Nucleated RBC % Seg Neutrophils # Seg Neutrophils # Man Lymphocytes # (Manual) Eosinophils # (Manual) INR D-Dimer ABG pH POC ABG pCO2 POC ABG pO2 ABG pO2 ABG HCO3 ABG O2 Saturation ABG Base Excess ABG Hemoglobin ABG Oxyhemoglobin ABG Sodium ABG Potassium ABG Chloride ABG Glucose Oxyhemoglobin Carboxyhemoglobin Sodium 129 L Potassium 3.4 L Chloride 90.4 L Carbon Dioxide BUN 34 H Creatinine 1.5 H Glucose 146 H POC Glucose Hemoglobin A1c Lactic Acid Calcium 7.8 L Phosphorus Magnesium Ferritin Total Bilirubin AST 75 H ALT 57 H Lactate Dehydrogenase C-Reactive Protein Albumin 2.9 L Triglycerides Arterial Blood Glucose Arterial Blood Ionized Calcium Urine Creatinine 301.2 H Coronavirus (PCR) Crossmatch 01/22/21 01/22/21 01/22/21 22:57 22:57 22:57 WBC RBC Hgb Hct MCV MCH MCHC RDW Plt Count Lymph % (Auto) Lymph # (Auto) Seg Neutrophils % Seg Neuts % (Manual) Lymphocytes % (Manual) Nucleated RBC % Seg Neutrophils # Seg Neutrophils # Man Lymphocytes # (Manual) Eosinophils # (Manual) INR D-Dimer 1173.89 H ABG pH POC ABG pCO2 POC ABG pO2 ABG pO2 ABG HCO3 ABG O2 Saturation ABG Base Excess ABG Hemoglobin ABG Oxyhemoglobin ABG Sodium ABG Potassium ABG Chloride ABG Glucose Oxyhemoglobin Carboxyhemoglobin Sodium Potassium Chloride Carbon Dioxide BUN Creatinine Glucose 149 H POC Glucose Hemoglobin A1c Lactic Acid 2.10 H* Calcium Phosphorus Magnesium Ferritin Total Bilirubin AST ALT Lactate Dehydrogenase 685 H C-Reactive Protein 30.40 H Albumin Triglycerides Arterial Blood Glucose Arterial Blood Ionized Calcium Urine Creatinine Coronavirus (PCR) Crossmatch 01/22/21 01/23/21 01/23/21 22:57 08:41 10:01 WBC RBC Hgb Hct MCV MCH MCHC RDW Plt Count Lymph % (Auto) Lymph # (Auto) Seg Neutrophils % Seg Neuts % (Manual) Lymphocytes % (Manual) Nucleated RBC % Seg Neutrophils # Seg Neutrophils # Man Lymphocytes # (Manual) Eosinophils # (Manual) INR D-Dimer ABG pH POC ABG pCO2 POC ABG pO2 ABG pO2 ABG HCO3 ABG O2 Saturation ABG Base Excess ABG Hemoglobin ABG Oxyhemoglobin ABG Sodium ABG Potassium ABG Chloride ABG Glucose Oxyhemoglobin Carboxyhemoglobin Sodium 131 L Potassium Chloride 88.7 L Carbon Dioxide 18 L BUN 36 H Creatinine 1.6 H Glucose 147 H POC Glucose Hemoglobin A1c Lactic Acid Calcium 7.5 L Phosphorus Magnesium Ferritin 1207.0 H Total Bilirubin AST ALT Lactate Dehydrogenase C-Reactive Protein Albumin Triglycerides Arterial Blood Glucose Arterial Blood Ionized Calcium Urine Creatinine Coronavirus (PCR) Positive A Crossmatch 01/23/21 01/23/21 01/24/21 20:49 Unknown 00:10 WBC RBC Hgb Hct MCV MCH MCHC RDW Plt Count Lymph % (Auto) Lymph # (Auto) Seg Neutrophils % Seg Neuts % (Manual) Lymphocytes % (Manual) Nucleated RBC % Seg Neutrophils # Seg Neutrophils # Man Lymphocytes # (Manual) Eosinophils # (Manual) INR D-Dimer ABG pH POC ABG pCO2 POC ABG pO2 ABG pO2 165.4 H ABG HCO3 ABG O2 Saturation ABG Base Excess -2.5 L ABG Hemoglobin ABG Oxyhemoglobin ABG Sodium ABG Potassium ABG Chloride ABG Glucose Oxyhemoglobin Carboxyhemoglobin Sodium 130 L Potassium Chloride 91.0 L Carbon Dioxide 20 L BUN 52 H Creatinine 3.8 H D Glucose 150 H POC Glucose 125 H Hemoglobin A1c Lactic Acid Calcium 8.0 L Phosphorus Magnesium Ferritin Total Bilirubin AST 42 H ALT Lactate Dehydrogenase C-Reactive Protein Albumin 2.4 L Triglycerides Arterial Blood Glucose Arterial Blood Ionized Calcium Urine Creatinine Coronavirus (PCR) Crossmatch 01/24/21 01/24/21 01/24/21 05:05 05:05 05:05 WBC 14.0 H RBC Hgb Hct MCV 95 H MCH 33 H MCHC RDW Plt Count Lymph % (Auto) Lymph # (Auto) Seg Neutrophils % Seg Neuts % (Manual) 91.0 H Lymphocytes % (Manual) 4.0 L Nucleated RBC % Seg Neutrophils # Seg Neutrophils # Man 12.7 H Lymphocytes # (Manual) 0.6 L Eosinophils # (Manual) INR D-Dimer 6159.48 H ABG pH POC ABG pCO2 POC ABG pO2 ABG pO2 ABG HCO3 ABG O2 Saturation ABG Base Excess ABG Hemoglobin ABG Oxyhemoglobin ABG Sodium ABG Potassium ABG Chloride ABG Glucose Oxyhemoglobin Carboxyhemoglobin Sodium Potassium Chloride Carbon Dioxide BUN Creatinine Glucose POC Glucose Hemoglobin A1c Lactic Acid Calcium Phosphorus Magnesium Ferritin 1178.0 H Total Bilirubin AST ALT Lactate Dehydrogenase C-Reactive Protein Albumin Triglycerides Arterial Blood Glucose Arterial Blood Ionized Calcium Urine Creatinine Coronavirus (PCR) Crossmatch 01/24/21 01/24/21 01/24/21 05:05 05:05 05:05 WBC RBC Hgb Hct MCV MCH MCHC RDW Plt Count Lymph % (Auto) Lymph # (Auto) Seg Neutrophils % Seg Neuts % (Manual) Lymphocytes % (Manual) Nucleated RBC % Seg Neutrophils # Seg Neutrophils # Man Lymphocytes # (Manual) Eosinophils # (Manual) INR D-Dimer ABG pH POC ABG pCO2 POC ABG pO2 ABG pO2 ABG HCO3 ABG O2 Saturation ABG Base Excess ABG Hemoglobin ABG Oxyhemoglobin ABG Sodium ABG Potassium ABG Chloride ABG Glucose Oxyhemoglobin Carboxyhemoglobin Sodium 132 L Potassium Chloride 93.1 L Carbon Dioxide 21 L BUN 57 H Creatinine 3.7 H Glucose 133 H POC Glucose Hemoglobin A1c Lactic Acid 2.20 H* Calcium 7.7 L Phosphorus Magnesium Ferritin Total Bilirubin AST ALT Lactate Dehydrogenase 658 H C-Reactive Protein 33.20 H Albumin 2.4 L Triglycerides Arterial Blood Glucose Arterial Blood Ionized Calcium Urine Creatinine Coronavirus (PCR) Crossmatch 01/24/21 01/24/21 01/24/21 05:34 06:00 17:35 WBC RBC Hgb Hct MCV MCH MCHC RDW Plt Count Lymph % (Auto) Lymph # (Auto) Seg Neutrophils % Seg Neuts % (Manual) Lymphocytes % (Manual) Nucleated RBC % Seg Neutrophils # Seg Neutrophils # Man Lymphocytes # (Manual) Eosinophils # (Manual) INR D-Dimer ABG pH POC ABG pCO2 POC ABG pO2 ABG pO2 ABG HCO3 ABG O2 Saturation ABG Base Excess ABG Hemoglobin ABG Oxyhemoglobin ABG Sodium ABG Potassium ABG Chloride ABG Glucose Oxyhemoglobin Carboxyhemoglobin Sodium Potassium Chloride Carbon Dioxide BUN Creatinine Glucose POC Glucose 136 H 137 H Hemoglobin A1c Lactic Acid Calcium Phosphorus Magnesium 2.80 H Ferritin Total Bilirubin AST ALT Lactate Dehydrogenase C-Reactive Protein Albumin Triglycerides Arterial Blood Glucose Arterial Blood Ionized Calcium Urine Creatinine Coronavirus (PCR) Crossmatch 01/25/21 01/25/21 01/25/21 04:15 05:40 05:40 WBC RBC Hgb Hct MCV 95 H MCH 33 H MCHC 35 H RDW Plt Count Lymph % (Auto) Lymph # (Auto) Seg Neutrophils % Seg Neuts % (Manual) 95.0 H Lymphocytes % (Manual) 3.0 L Nucleated RBC % Seg Neutrophils # Seg Neutrophils # Man 7.8 H Lymphocytes # (Manual) 0.2 L Eosinophils # (Manual) INR D-Dimer ABG pH POC ABG pCO2 POC ABG pO2 63.2 L ABG pO2 ABG HCO3 ABG O2 Saturation ABG Base Excess ABG Hemoglobin ABG Oxyhemoglobin 89.6 L ABG Sodium ABG Potassium ABG Chloride ABG Glucose 165 H Oxyhemoglobin Carboxyhemoglobin 0.3 L Sodium Potassium Chloride Carbon Dioxide BUN 67 H Creatinine 3.4 H Glucose 153 H POC Glucose Hemoglobin A1c Lactic Acid Calcium 7.5 L Phosphorus Magnesium Ferritin Total Bilirubin 1.40 H AST 62 H ALT Lactate Dehydrogenase C-Reactive Protein Albumin 2.6 L Triglycerides Arterial Blood Glucose 165 H Arterial Blood Ionized Calcium 4.3 L Urine Creatinine Coronavirus (PCR) Crossmatch 01/25/21 01/25/21 01/25/21 05:59 12:00 17:17 WBC RBC Hgb Hct MCV MCH MCHC RDW Plt Count Lymph % (Auto) Lymph # (Auto) Seg Neutrophils % Seg Neuts % (Manual) Lymphocytes % (Manual) Nucleated RBC % Seg Neutrophils # Seg Neutrophils # Man Lymphocytes # (Manual) Eosinophils # (Manual) INR D-Dimer ABG pH POC ABG pCO2 POC ABG pO2 ABG pO2 ABG HCO3 ABG O2 Saturation ABG Base Excess ABG Hemoglobin ABG Oxyhemoglobin ABG Sodium ABG Potassium ABG Chloride ABG Glucose Oxyhemoglobin Carboxyhemoglobin Sodium Potassium Chloride Carbon Dioxide BUN Creatinine Glucose POC Glucose 140 H 143 H 149 H Hemoglobin A1c Lactic Acid Calcium Phosphorus Magnesium Ferritin Total Bilirubin AST ALT Lactate Dehydrogenase C-Reactive Protein Albumin Triglycerides Arterial Blood Glucose Arterial Blood Ionized Calcium Urine Creatinine Coronavirus (PCR) Crossmatch 01/25/21 01/26/21 01/26/21 23:41 03:43 05:46 WBC RBC Hgb Hct MCV MCH MCHC RDW Plt Count Lymph % (Auto) Lymph # (Auto) Seg Neutrophils % Seg Neuts % (Manual) Lymphocytes % (Manual) Nucleated RBC % Seg Neutrophils # Seg Neutrophils # Man Lymphocytes # (Manual) Eosinophils # (Manual) INR D-Dimer ABG pH POC ABG pCO2 POC ABG pO2 70.0 L ABG pO2 ABG HCO3 ABG O2 Saturation ABG Base Excess ABG Hemoglobin ABG Oxyhemoglobin 91.9 L ABG Sodium ABG Potassium ABG Chloride 109.0 H ABG Glucose 165 H Oxyhemoglobin Carboxyhemoglobin Sodium Potassium Chloride Carbon Dioxide BUN Creatinine Glucose POC Glucose 132 H 161 H Hemoglobin A1c Lactic Acid Calcium Phosphorus Magnesium Ferritin Total Bilirubin AST ALT Lactate Dehydrogenase C-Reactive Protein Albumin Triglycerides Arterial Blood Glucose 165 H Arterial Blood Ionized Calcium 4.5 L Urine Creatinine Coronavirus (PCR) Crossmatch 01/26/21 01/26/21 01/26/21 05:47 05:47 05:47 WBC RBC Hgb Hct 35.3 L MCV 96 H MCH 33 H MCHC RDW Plt Count Lymph % (Auto) Lymph # (Auto) Seg Neutrophils % Seg Neuts % (Manual) 96.0 H Lymphocytes % (Manual) 2.0 L Nucleated RBC % Seg Neutrophils # Seg Neutrophils # Man Lymphocytes # (Manual) 0.1 L Eosinophils # (Manual) INR D-Dimer > 96317 H ABG pH POC ABG pCO2 POC ABG pO2 ABG pO2 ABG HCO3 ABG O2 Saturation ABG Base Excess ABG Hemoglobin ABG Oxyhemoglobin ABG Sodium ABG Potassium ABG Chloride ABG Glucose Oxyhemoglobin Carboxyhemoglobin Sodium Potassium Chloride Carbon Dioxide BUN 57 H Creatinine 2.2 H Glucose 185 H POC Glucose Hemoglobin A1c Lactic Acid Calcium 8.1 L Phosphorus Magnesium Ferritin Total Bilirubin AST ALT Lactate Dehydrogenase C-Reactive Protein Albumin Triglycerides Arterial Blood Glucose Arterial Blood Ionized Calcium Urine Creatinine Coronavirus (PCR) Crossmatch 01/26/21 01/26/21 01/26/21 05:47 05:47 05:47 WBC RBC Hgb Hct MCV MCH MCHC RDW Plt Count Lymph % (Auto) Lymph # (Auto) Seg Neutrophils % Seg Neuts % (Manual) Lymphocytes % (Manual) Nucleated RBC % Seg Neutrophils # Seg Neutrophils # Man Lymphocytes # (Manual) Eosinophils # (Manual) INR D-Dimer ABG pH POC ABG pCO2 POC ABG pO2 ABG pO2 ABG HCO3 ABG O2 Saturation ABG Base Excess ABG Hemoglobin ABG Oxyhemoglobin ABG Sodium ABG Potassium ABG Chloride ABG Glucose Oxyhemoglobin Carboxyhemoglobin Sodium Potassium Chloride 107.1 H Carbon Dioxide BUN 56 H Creatinine 2.2 H Glucose 188 H POC Glucose Hemoglobin A1c Lactic Acid Calcium 8.0 L Phosphorus Magnesium Ferritin 1178.0 H Total Bilirubin 1.50 H AST ALT Lactate Dehydrogenase 588 H C-Reactive Protein 40.10 H Albumin 2.2 L Triglycerides Arterial Blood Glucose Arterial Blood Ionized Calcium Urine Creatinine Coronavirus (PCR) Crossmatch 01/26/21 01/26/21 01/26/21 11:34 18:17 23:20 WBC RBC Hgb Hct MCV MCH MCHC RDW Plt Count Lymph % (Auto) Lymph # (Auto) Seg Neutrophils % Seg Neuts % (Manual) Lymphocytes % (Manual) Nucleated RBC % Seg Neutrophils # Seg Neutrophils # Man Lymphocytes # (Manual) Eosinophils # (Manual) INR D-Dimer ABG pH POC ABG pCO2 POC ABG pO2 ABG pO2 ABG HCO3 ABG O2 Saturation ABG Base Excess ABG Hemoglobin ABG Oxyhemoglobin ABG Sodium ABG Potassium ABG Chloride ABG Glucose Oxyhemoglobin Carboxyhemoglobin Sodium Potassium Chloride Carbon Dioxide BUN Creatinine Glucose POC Glucose 129 H 205 H 155 H Hemoglobin A1c Lactic Acid Calcium Phosphorus Magnesium Ferritin Total Bilirubin AST ALT Lactate Dehydrogenase C-Reactive Protein Albumin Triglycerides Arterial Blood Glucose Arterial Blood Ionized Calcium Urine Creatinine Coronavirus (PCR) Crossmatch 01/27/21 01/27/21 01/27/21 02:45 05:29 05:29 WBC RBC 3.58 L Hgb 11.7 L Hct 34.9 L MCV 97 H MCH 33 H MCHC RDW Plt Count Lymph % (Auto) Lymph # (Auto) Seg Neutrophils % Seg Neuts % (Manual) 88.0 H Lymphocytes % (Manual) 7.0 L Nucleated RBC % Seg Neutrophils # Seg Neutrophils # Man Lymphocytes # (Manual) 0.5 L Eosinophils # (Manual) INR D-Dimer ABG pH 7.319 L POC ABG pCO2 50.7 H POC ABG pO2 63.0 L ABG pO2 ABG HCO3 ABG O2 Saturation ABG Base Excess ABG Hemoglobin ABG Oxyhemoglobin ABG Sodium 145.2 H ABG Potassium 5.1 H ABG Chloride 114.0 H ABG Glucose 178 H Oxyhemoglobin Carboxyhemoglobin Sodium Potassium Chloride Carbon Dioxide BUN Creatinine Glucose POC Glucose Hemoglobin A1c Lactic Acid Calcium Phosphorus Magnesium 4.00 H Ferritin Total Bilirubin AST ALT Lactate Dehydrogenase C-Reactive Protein Albumin Triglycerides Arterial Blood Glucose 178 H Arterial Blood Ionized Calcium Urine Creatinine Coronavirus (PCR) Crossmatch 01/27/21 01/27/21 01/27/21 05:29 05:29 05:31 WBC RBC Hgb Hct MCV MCH MCHC RDW Plt Count Lymph % (Auto) Lymph # (Auto) Seg Neutrophils % Seg Neuts % (Manual) Lymphocytes % (Manual) Nucleated RBC % Seg Neutrophils # Seg Neutrophils # Man Lymphocytes # (Manual) Eosinophils # (Manual) INR D-Dimer ABG pH POC ABG pCO2 POC ABG pO2 ABG pO2 ABG HCO3 ABG O2 Saturation ABG Base Excess ABG Hemoglobin ABG Oxyhemoglobin ABG Sodium ABG Potassium ABG Chloride ABG Glucose Oxyhemoglobin Carboxyhemoglobin Sodium Potassium 5.2 H Chloride 109.6 H Carbon Dioxide BUN 67 H Creatinine 2.8 H Glucose 195 H POC Glucose 176 H Hemoglobin A1c Lactic Acid Calcium 7.9 L Phosphorus Magnesium Ferritin Total Bilirubin AST ALT Lactate Dehydrogenase C-Reactive Protein Albumin Triglycerides 160 H Arterial Blood Glucose Arterial Blood Ionized Calcium Urine Creatinine Coronavirus (PCR) Crossmatch 01/27/21 01/27/21 01/27/21 11:27 18:08 23:30 WBC RBC Hgb Hct MCV MCH MCHC RDW Plt Count Lymph % (Auto) Lymph # (Auto) Seg Neutrophils % Seg Neuts % (Manual) Lymphocytes % (Manual) Nucleated RBC % Seg Neutrophils # Seg Neutrophils # Man Lymphocytes # (Manual) Eosinophils # (Manual) INR D-Dimer ABG pH POC ABG pCO2 POC ABG pO2 ABG pO2 ABG HCO3 ABG O2 Saturation ABG Base Excess ABG Hemoglobin ABG Oxyhemoglobin ABG Sodium ABG Potassium ABG Chloride ABG Glucose Oxyhemoglobin Carboxyhemoglobin Sodium Potassium Chloride Carbon Dioxide BUN Creatinine Glucose POC Glucose 189 H 212 H 175 H Hemoglobin A1c Lactic Acid Calcium Phosphorus Magnesium Ferritin Total Bilirubin AST ALT Lactate Dehydrogenase C-Reactive Protein Albumin Triglycerides Arterial Blood Glucose Arterial Blood Ionized Calcium Urine Creatinine Coronavirus (PCR) Crossmatch 01/28/21 01/28/21 01/28/21 03:58 04:00 04:00 WBC RBC Hgb Hct MCV MCH MCHC RDW Plt Count Lymph % (Auto) Lymph # (Auto) Seg Neutrophils % Seg Neuts % (Manual) Lymphocytes % (Manual) Nucleated RBC % Seg Neutrophils # Seg Neutrophils # Man Lymphocytes # (Manual) Eosinophils # (Manual) INR D-Dimer > 72903 H ABG pH POC ABG pCO2 POC ABG pO2 52.9 L ABG pO2 ABG HCO3 ABG O2 Saturation ABG Base Excess ABG Hemoglobin ABG Oxyhemoglobin 84.1 L ABG Sodium 148.9 H ABG Potassium ABG Chloride 117.0 H ABG Glucose 194 H Oxyhemoglobin Carboxyhemoglobin Sodium Potassium Chloride Carbon Dioxide BUN Creatinine Glucose POC Glucose Hemoglobin A1c Lactic Acid Calcium Phosphorus Magnesium Ferritin Total Bilirubin AST ALT Lactate Dehydrogenase 679 H C-Reactive Protein 17.10 H Albumin Triglycerides Arterial Blood Glucose 194 H Arterial Blood Ionized Calcium Urine Creatinine Coronavirus (PCR) Crossmatch 01/28/21 01/28/21 01/28/21 04:00 05:00 06:00 WBC RBC 3.59 L Hgb 11.6 L Hct 34.8 L MCV 97 H MCH MCHC RDW Plt Count Lymph % (Auto) Lymph # (Auto) Seg Neutrophils % Seg Neuts % (Manual) 96.0 H Lymphocytes % (Manual) 3.0 L Nucleated RBC % Seg Neutrophils # Seg Neutrophils # Man Lymphocytes # (Manual) 0.2 L Eosinophils # (Manual) INR D-Dimer ABG pH POC ABG pCO2 POC ABG pO2 ABG pO2 ABG HCO3 ABG O2 Saturation ABG Base Excess ABG Hemoglobin ABG Oxyhemoglobin ABG Sodium ABG Potassium ABG Chloride ABG Glucose Oxyhemoglobin Carboxyhemoglobin Sodium Potassium Chloride Carbon Dioxide BUN Creatinine Glucose POC Glucose 159 H Hemoglobin A1c Lactic Acid Calcium Phosphorus Magnesium Ferritin 798.0 H Total Bilirubin AST ALT Lactate Dehydrogenase C-Reactive Protein Albumin Triglycerides Arterial Blood Glucose Arterial Blood Ionized Calcium Urine Creatinine Coronavirus (PCR) Crossmatch 01/28/21 01/28/21 01/28/21 06:00 06:00 08:12 WBC RBC Hgb Hct MCV MCH MCHC RDW Plt Count Lymph % (Auto) Lymph # (Auto) Seg Neutrophils % Seg Neuts % (Manual) Lymphocytes % (Manual) Nucleated RBC % Seg Neutrophils # Seg Neutrophils # Man Lymphocytes # (Manual) Eosinophils # (Manual) INR D-Dimer ABG pH POC ABG pCO2 POC ABG pO2 ABG pO2 ABG HCO3 ABG O2 Saturation ABG Base Excess ABG Hemoglobin ABG Oxyhemoglobin ABG Sodium ABG Potassium ABG Chloride ABG Glucose Oxyhemoglobin Carboxyhemoglobin Sodium Potassium Chloride 111.9 H Carbon Dioxide BUN 59 H Creatinine 2.2 H Glucose 189 H POC Glucose 181 H Hemoglobin A1c Lactic Acid Calcium 8.1 L Phosphorus Magnesium 3.20 H Ferritin Total Bilirubin AST ALT Lactate Dehydrogenase C-Reactive Protein Albumin Triglycerides Arterial Blood Glucose Arterial Blood Ionized Calcium Urine Creatinine Coronavirus (PCR) Crossmatch 01/28/21 01/28/21 01/28/21 12:03 16:43 23:51 WBC RBC Hgb Hct MCV MCH MCHC RDW Plt Count Lymph % (Auto) Lymph # (Auto) Seg Neutrophils % Seg Neuts % (Manual) Lymphocytes % (Manual) Nucleated RBC % Seg Neutrophils # Seg Neutrophils # Man Lymphocytes # (Manual) Eosinophils # (Manual) INR D-Dimer ABG pH POC ABG pCO2 POC ABG pO2 ABG pO2 ABG HCO3 ABG O2 Saturation ABG Base Excess ABG Hemoglobin ABG Oxyhemoglobin ABG Sodium ABG Potassium ABG Chloride ABG Glucose Oxyhemoglobin Carboxyhemoglobin Sodium Potassium Chloride Carbon Dioxide BUN Creatinine Glucose POC Glucose 164 H 198 H 196 H Hemoglobin A1c Lactic Acid Calcium Phosphorus Magnesium Ferritin Total Bilirubin AST ALT Lactate Dehydrogenase C-Reactive Protein Albumin Triglycerides Arterial Blood Glucose Arterial Blood Ionized Calcium Urine Creatinine Coronavirus (PCR) Crossmatch 01/29/21 01/29/21 01/29/21 05:00 05:23 06:00 WBC RBC Hgb Hct MCV MCH MCHC RDW Plt Count Lymph % (Auto) Lymph # (Auto) Seg Neutrophils % Seg Neuts % (Manual) Lymphocytes % (Manual) Nucleated RBC % Seg Neutrophils # Seg Neutrophils # Man Lymphocytes # (Manual) Eosinophils # (Manual) INR D-Dimer ABG pH 7.119 L POC ABG pCO2 87.1 H POC ABG pO2 ABG pO2 ABG HCO3 ABG O2 Saturation ABG Base Excess ABG Hemoglobin ABG Oxyhemoglobin ABG Sodium 152.5 H ABG Potassium 5.7 H ABG Chloride 120.0 H ABG Glucose 217 H Oxyhemoglobin Carboxyhemoglobin Sodium 151 H Potassium 5.9 H D Chloride 117.8 H Carbon Dioxide BUN 54 H Creatinine 2.2 H Glucose 208 H POC Glucose 180 H Hemoglobin A1c Lactic Acid Calcium 7.9 L Phosphorus Magnesium Ferritin Total Bilirubin AST ALT Lactate Dehydrogenase C-Reactive Protein Albumin Triglycerides Arterial Blood Glucose 217 H Arterial Blood Ionized Calcium Urine Creatinine Coronavirus (PCR) Crossmatch 01/29/21 01/29/21 01/29/21 12:29 17:28 18:05 WBC RBC Hgb Hct MCV MCH MCHC RDW Plt Count Lymph % (Auto) Lymph # (Auto) Seg Neutrophils % Seg Neuts % (Manual) Lymphocytes % (Manual) Nucleated RBC % Seg Neutrophils # Seg Neutrophils # Man Lymphocytes # (Manual) Eosinophils # (Manual) INR D-Dimer ABG pH POC ABG pCO2 POC ABG pO2 ABG pO2 ABG HCO3 ABG O2 Saturation ABG Base Excess ABG Hemoglobin ABG Oxyhemoglobin ABG Sodium ABG Potassium ABG Chloride ABG Glucose Oxyhemoglobin Carboxyhemoglobin Sodium 151 H Potassium 5.5 H Chloride 118.2 H Carbon Dioxide BUN 52 H Creatinine 2.2 H Glucose 224 H POC Glucose 181 H 203 H Hemoglobin A1c Lactic Acid Calcium 8.0 L Phosphorus Magnesium Ferritin Total Bilirubin AST ALT Lactate Dehydrogenase C-Reactive Protein Albumin Triglycerides Arterial Blood Glucose Arterial Blood Ionized Calcium Urine Creatinine Coronavirus (PCR) Crossmatch 01/29/21 01/29/21 01/29/21 18:13 23:34 Unknown WBC RBC Hgb Hct MCV 101 H MCH MCHC RDW 15.7 H Plt Count Lymph % (Auto) Lymph # (Auto) Seg Neutrophils % Seg Neuts % (Manual) 95.0 H Lymphocytes % (Manual) 3.0 L Nucleated RBC % Seg Neutrophils # Seg Neutrophils # Man 8.0 H Lymphocytes # (Manual) 0.3 L Eosinophils # (Manual) INR D-Dimer ABG pH 7.223 L POC ABG pCO2 64.8 H POC ABG pO2 63.6 L ABG pO2 ABG HCO3 ABG O2 Saturation ABG Base Excess ABG Hemoglobin ABG Oxyhemoglobin 89.4 L ABG Sodium 152.9 H ABG Potassium 5.3 H ABG Chloride 121.0 H ABG Glucose 227 H Oxyhemoglobin Carboxyhemoglobin Sodium Potassium Chloride Carbon Dioxide BUN Creatinine Glucose POC Glucose 198 H Hemoglobin A1c Lactic Acid Calcium Phosphorus Magnesium Ferritin Total Bilirubin AST ALT Lactate Dehydrogenase C-Reactive Protein Albumin Triglycerides Arterial Blood Glucose 227 H Arterial Blood Ionized Calcium Urine Creatinine Coronavirus (PCR) Crossmatch 01/30/21 01/30/21 01/30/21 04:00 04:00 04:00 WBC RBC Hgb Hct MCV MCH MCHC RDW Plt Count Lymph % (Auto) Lymph # (Auto) Seg Neutrophils % Seg Neuts % (Manual) Lymphocytes % (Manual) Nucleated RBC % Seg Neutrophils # Seg Neutrophils # Man Lymphocytes # (Manual) Eosinophils # (Manual) INR D-Dimer > 15514 H ABG pH POC ABG pCO2 POC ABG pO2 ABG pO2 ABG HCO3 ABG O2 Saturation ABG Base Excess ABG Hemoglobin ABG Oxyhemoglobin ABG Sodium ABG Potassium ABG Chloride ABG Glucose Oxyhemoglobin Carboxyhemoglobin Sodium Potassium Chloride Carbon Dioxide BUN Creatinine Glucose 234 H POC Glucose Hemoglobin A1c Lactic Acid Calcium Phosphorus Magnesium Ferritin 763.9 H Total Bilirubin AST ALT Lactate Dehydrogenase 424 H C-Reactive Protein 23.90 H Albumin Triglycerides Arterial Blood Glucose Arterial Blood Ionized Calcium Urine Creatinine Coronavirus (PCR) Crossmatch 01/30/21 01/30/21 01/30/21 04:24 05:00 05:16 WBC RBC 3.57 L Hgb 11.3 L Hct 35.4 L MCV 99 H MCH MCHC RDW 15.6 H Plt Count Lymph % (Auto) Lymph # (Auto) Seg Neutrophils % Seg Neuts % (Manual) 97.0 H Lymphocytes % (Manual) 1.0 L Nucleated RBC % Seg Neutrophils # Seg Neutrophils # Man 8.6 H Lymphocytes # (Manual) 0.1 L Eosinophils # (Manual) INR D-Dimer ABG pH 7.235 L POC ABG pCO2 69.7 H POC ABG pO2 61.0 L ABG pO2 ABG HCO3 ABG O2 Saturation ABG Base Excess ABG Hemoglobin ABG Oxyhemoglobin 89 L ABG Sodium 154.2 H ABG Potassium 5.4 H ABG Chloride 121.0 H ABG Glucose 247 H Oxyhemoglobin Carboxyhemoglobin Sodium Potassium Chloride Carbon Dioxide BUN Creatinine Glucose POC Glucose 238 H Hemoglobin A1c Lactic Acid Calcium Phosphorus Magnesium Ferritin Total Bilirubin AST ALT Lactate Dehydrogenase C-Reactive Protein Albumin Triglycerides Arterial Blood Glucose 247 H Arterial Blood Ionized Calcium Urine Creatinine Coronavirus (PCR) Crossmatch 01/30/21 01/30/21 01/30/21 06:00 11:28 12:00 WBC RBC Hgb Hct MCV MCH MCHC RDW Plt Count Lymph % (Auto) Lymph # (Auto) Seg Neutrophils % Seg Neuts % (Manual) Lymphocytes % (Manual) Nucleated RBC % Seg Neutrophils # Seg Neutrophils # Man Lymphocytes # (Manual) Eosinophils # (Manual) INR D-Dimer ABG pH POC ABG pCO2 POC ABG pO2 ABG pO2 ABG HCO3 ABG O2 Saturation ABG Base Excess ABG Hemoglobin ABG Oxyhemoglobin ABG Sodium ABG Potassium ABG Chloride ABG Glucose Oxyhemoglobin Carboxyhemoglobin Sodium 152 H Potassium 5.3 H Chloride 120.5 H Carbon Dioxide BUN 50 H Creatinine 2.3 H Glucose 239 H POC Glucose 153 H Hemoglobin A1c Lactic Acid Calcium 8.2 L Phosphorus Magnesium 2.60 H Ferritin Total Bilirubin AST ALT Lactate Dehydrogenase C-Reactive Protein Albumin Triglycerides 293 H Arterial Blood Glucose Arterial Blood Ionized Calcium Urine Creatinine 53.0 H Coronavirus (PCR) Crossmatch 01/30/21 01/30/21 01/31/21 18:49 23:06 04:00 WBC RBC Hgb Hct MCV MCH MCHC RDW Plt Count Lymph % (Auto) Lymph # (Auto) Seg Neutrophils % Seg Neuts % (Manual) Lymphocytes % (Manual) Nucleated RBC % Seg Neutrophils # Seg Neutrophils # Man Lymphocytes # (Manual) Eosinophils # (Manual) INR D-Dimer ABG pH POC ABG pCO2 POC ABG pO2 ABG pO2 ABG HCO3 ABG O2 Saturation ABG Base Excess ABG Hemoglobin ABG Oxyhemoglobin ABG Sodium ABG Potassium ABG Chloride ABG Glucose Oxyhemoglobin Carboxyhemoglobin Sodium 156 H Potassium 5.9 H Chloride 122.6 H Carbon Dioxide BUN 61 H Creatinine 3.2 H Glucose 205 H POC Glucose 220 H 192 H Hemoglobin A1c Lactic Acid Calcium 8.0 L Phosphorus Magnesium Ferritin Total Bilirubin AST ALT Lactate Dehydrogenase C-Reactive Protein Albumin Triglycerides Arterial Blood Glucose Arterial Blood Ionized Calcium Urine Creatinine Coronavirus (PCR) Crossmatch 01/31/21 01/31/21 01/31/21 04:40 05:17 11:33 WBC RBC Hgb Hct MCV MCH MCHC RDW Plt Count Lymph % (Auto) Lymph # (Auto) Seg Neutrophils % Seg Neuts % (Manual) Lymphocytes % (Manual) Nucleated RBC % Seg Neutrophils # Seg Neutrophils # Man Lymphocytes # (Manual) Eosinophils # (Manual) INR D-Dimer ABG pH 7.161 L* POC ABG pCO2 POC ABG pO2 ABG pO2 142.2 H ABG HCO3 28.3 H ABG O2 Saturation ABG Base Excess -3.2 L ABG Hemoglobin ABG Oxyhemoglobin ABG Sodium ABG Potassium ABG Chloride ABG Glucose Oxyhemoglobin Carboxyhemoglobin Sodium Potassium Chloride Carbon Dioxide BUN Creatinine Glucose POC Glucose 200 H 167 H Hemoglobin A1c Lactic Acid Calcium Phosphorus Magnesium Ferritin Total Bilirubin AST ALT Lactate Dehydrogenase C-Reactive Protein Albumin Triglycerides Arterial Blood Glucose Arterial Blood Ionized Calcium Urine Creatinine Coronavirus (PCR) Crossmatch 01/31/21 01/31/21 01/31/21 14:00 17:10 23:24 WBC RBC Hgb Hct MCV MCH MCHC RDW Plt Count Lymph % (Auto) Lymph # (Auto) Seg Neutrophils % Seg Neuts % (Manual) Lymphocytes % (Manual) Nucleated RBC % Seg Neutrophils # Seg Neutrophils # Man Lymphocytes # (Manual) Eosinophils # (Manual) INR D-Dimer ABG pH 7.205 L POC ABG pCO2 POC ABG pO2 ABG pO2 90.9 H ABG HCO3 26.5 H ABG O2 Saturation ABG Base Excess -2.7 L ABG Hemoglobin 12.3 L ABG Oxyhemoglobin ABG Sodium ABG Potassium ABG Chloride ABG Glucose Oxyhemoglobin 93.9 L Carboxyhemoglobin Sodium Potassium Chloride Carbon Dioxide BUN Creatinine Glucose POC Glucose 190 H 203 H Hemoglobin A1c Lactic Acid Calcium Phosphorus Magnesium Ferritin Total Bilirubin AST ALT Lactate Dehydrogenase C-Reactive Protein Albumin Triglycerides Arterial Blood Glucose Arterial Blood Ionized Calcium Urine Creatinine Coronavirus (PCR) Crossmatch 02/01/21 02/01/21 02/01/21 05:15 06:22 10:20 WBC RBC Hgb Hct MCV MCH MCHC RDW Plt Count Lymph % (Auto) Lymph # (Auto) Seg Neutrophils % Seg Neuts % (Manual) Lymphocytes % (Manual) Nucleated RBC % Seg Neutrophils # Seg Neutrophils # Man Lymphocytes # (Manual) Eosinophils # (Manual) INR D-Dimer ABG pH 6.920 L* 7.116 L* POC ABG pCO2 POC ABG pO2 ABG pO2 102.9 H 113.1 H ABG HCO3 28.2 H ABG O2 Saturation 92.9 L ABG Base Excess -6.9 L -5.8 L ABG Hemoglobin 11.6 L 9.5 L ABG Oxyhemoglobin ABG Sodium ABG Potassium ABG Chloride ABG Glucose Oxyhemoglobin 90.5 L 94.6 L Carboxyhemoglobin Sodium Potassium Chloride Carbon Dioxide BUN Creatinine Glucose POC Glucose 221 H Hemoglobin A1c Lactic Acid Calcium Phosphorus Magnesium Ferritin Total Bilirubin AST ALT Lactate Dehydrogenase C-Reactive Protein Albumin Triglycerides Arterial Blood Glucose Arterial Blood Ionized Calcium Urine Creatinine Coronavirus (PCR) Crossmatch 02/01/21 02/01/21 02/01/21 11:12 12:35 16:00 WBC RBC Hgb Hct MCV MCH MCHC RDW Plt Count Lymph % (Auto) Lymph # (Auto) Seg Neutrophils % Seg Neuts % (Manual) Lymphocytes % (Manual) Nucleated RBC % Seg Neutrophils # Seg Neutrophils # Man Lymphocytes # (Manual) Eosinophils # (Manual) INR D-Dimer ABG pH 7.155 L* POC ABG pCO2 POC ABG pO2 ABG pO2 94.6 H ABG HCO3 ABG O2 Saturation ABG Base Excess -6.5 L ABG Hemoglobin 13.1 L ABG Oxyhemoglobin ABG Sodium ABG Potassium ABG Chloride ABG Glucose Oxyhemoglobin 93.7 L Carboxyhemoglobin Sodium 155 H Potassium 5.1 H Chloride 120.5 H Carbon Dioxide BUN 90 H Creatinine 6.1 H D Glucose 238 H POC Glucose 207 H Hemoglobin A1c Lactic Acid Calcium 7.4 L Phosphorus Magnesium Ferritin Total Bilirubin AST ALT Lactate Dehydrogenase C-Reactive Protein Albumin Triglycerides Arterial Blood Glucose Arterial Blood Ionized Calcium Urine Creatinine Coronavirus (PCR) Crossmatch 02/01/21 02/01/21 02/02/21 17:10 23:47 04:04 WBC RBC 3.02 L Hgb 9.8 L Hct 30.7 L MCV 102 H MCH MCHC RDW 15.6 H Plt Count Lymph % (Auto) 4.2 L Lymph # (Auto) 0.3 L Seg Neutrophils % Seg Neuts % (Manual) Lymphocytes % (Manual) Nucleated RBC % Seg Neutrophils # Seg Neutrophils # Man Lymphocytes # (Manual) Eosinophils # (Manual) INR D-Dimer ABG pH POC ABG pCO2 POC ABG pO2 ABG pO2 ABG HCO3 ABG O2 Saturation ABG Base Excess ABG Hemoglobin ABG Oxyhemoglobin ABG Sodium ABG Potassium ABG Chloride ABG Glucose Oxyhemoglobin Carboxyhemoglobin Sodium Potassium Chloride Carbon Dioxide BUN Creatinine Glucose POC Glucose 238 H 235 H Hemoglobin A1c Lactic Acid Calcium Phosphorus Magnesium Ferritin Total Bilirubin AST ALT Lactate Dehydrogenase C-Reactive Protein Albumin Triglycerides Arterial Blood Glucose Arterial Blood Ionized Calcium Urine Creatinine Coronavirus (PCR) Crossmatch 02/02/21 02/02/21 02/02/21 05:18 05:35 11:28 WBC RBC Hgb Hct MCV MCH MCHC RDW Plt Count Lymph % (Auto) Lymph # (Auto) Seg Neutrophils % Seg Neuts % (Manual) Lymphocytes % (Manual) Nucleated RBC % Seg Neutrophils # Seg Neutrophils # Man Lymphocytes # (Manual) Eosinophils # (Manual) INR D-Dimer ABG pH 7.195 L* POC ABG pCO2 POC ABG pO2 ABG pO2 72.5 L ABG HCO3 ABG O2 Saturation 91.2 L ABG Base Excess -5.3 L ABG Hemoglobin 6.0 L ABG Oxyhemoglobin ABG Sodium ABG Potassium ABG Chloride ABG Glucose Oxyhemoglobin 89.1 L Carboxyhemoglobin Sodium Potassium Chloride 110.4 H Carbon Dioxide BUN 92 H Creatinine Glucose POC Glucose 239 H Hemoglobin A1c Lactic Acid Calcium Phosphorus Magnesium Ferritin Total Bilirubin AST ALT Lactate Dehydrogenase C-Reactive Protein Albumin Triglycerides Arterial Blood Glucose Arterial Blood Ionized Calcium Urine Creatinine Coronavirus (PCR) Crossmatch 02/02/21 02/02/21 02/02/21 11:53 16:00 18:04 WBC RBC Hgb Hct MCV MCH MCHC RDW Plt Count Lymph % (Auto) Lymph # (Auto) Seg Neutrophils % Seg Neuts % (Manual) Lymphocytes % (Manual) Nucleated RBC % Seg Neutrophils # Seg Neutrophils # Man Lymphocytes # (Manual) Eosinophils # (Manual) INR D-Dimer ABG pH POC ABG pCO2 POC ABG pO2 ABG pO2 ABG HCO3 ABG O2 Saturation ABG Base Excess ABG Hemoglobin ABG Oxyhemoglobin ABG Sodium ABG Potassium ABG Chloride ABG Glucose Oxyhemoglobin Carboxyhemoglobin Sodium Potassium Chloride Carbon Dioxide BUN Creatinine Glucose POC Glucose 248 H 199 H Hemoglobin A1c 6.3 H Lactic Acid Calcium Phosphorus Magnesium Ferritin Total Bilirubin AST ALT Lactate Dehydrogenase C-Reactive Protein Albumin Triglycerides Arterial Blood Glucose Arterial Blood Ionized Calcium Urine Creatinine Coronavirus (PCR) Crossmatch 02/02/21 02/03/21 02/03/21 23:31 03:12 04:10 WBC RBC 3.06 L Hgb 9.7 L Hct 30.4 L MCV 99 H MCH MCHC RDW 15.3 H Plt Count Lymph % (Auto) 6.1 L Lymph # (Auto) 0.5 L Seg Neutrophils % 86.1 H Seg Neuts % (Manual) Lymphocytes % (Manual) Nucleated RBC % Seg Neutrophils # Seg Neutrophils # Man Lymphocytes # (Manual) Eosinophils # (Manual) INR D-Dimer ABG pH 7.199 L POC ABG pCO2 48.3 H POC ABG pO2 68.3 L ABG pO2 ABG HCO3 ABG O2 Saturation ABG Base Excess ABG Hemoglobin 10.2 L ABG Oxyhemoglobin 89.2 L ABG Sodium 155.0 H ABG Potassium 4.6 H ABG Chloride 121.0 H ABG Glucose 166 H Oxyhemoglobin Carboxyhemoglobin 0.3 L Sodium Potassium Chloride Carbon Dioxide BUN Creatinine Glucose POC Glucose 200 H Hemoglobin A1c Lactic Acid Calcium Phosphorus Magnesium Ferritin Total Bilirubin AST ALT Lactate Dehydrogenase C-Reactive Protein Albumin Triglycerides Arterial Blood Glucose 166 H Arterial Blood Ionized Calcium 4.1 L Urine Creatinine Coronavirus (PCR) Crossmatch 02/03/21 02/03/21 02/03/21 04:10 05:34 11:51 WBC RBC Hgb Hct MCV MCH MCHC RDW Plt Count Lymph % (Auto) Lymph # (Auto) Seg Neutrophils % Seg Neuts % (Manual) Lymphocytes % (Manual) Nucleated RBC % Seg Neutrophils # Seg Neutrophils # Man Lymphocytes # (Manual) Eosinophils # (Manual) INR D-Dimer ABG pH POC ABG pCO2 POC ABG pO2 ABG pO2 ABG HCO3 ABG O2 Saturation ABG Base Excess ABG Hemoglobin ABG Oxyhemoglobin ABG Sodium ABG Potassium ABG Chloride ABG Glucose Oxyhemoglobin Carboxyhemoglobin Sodium 154 H D Potassium Chloride 116.7 H Carbon Dioxide 20 L BUN 130 H Creatinine 9.2 H D Glucose 160 H POC Glucose 130 H 154 H Hemoglobin A1c Lactic Acid Calcium 6.7 L Phosphorus 8.60 H Magnesium Ferritin Total Bilirubin AST ALT Lactate Dehydrogenase C-Reactive Protein Albumin Triglycerides Arterial Blood Glucose Arterial Blood Ionized Calcium Urine Creatinine Coronavirus (PCR) Crossmatch 02/03/21 02/03/21 02/04/21 16:49 23:22 03:48 WBC RBC Hgb Hct MCV MCH MCHC RDW Plt Count Lymph % (Auto) Lymph # (Auto) Seg Neutrophils % Seg Neuts % (Manual) Lymphocytes % (Manual) Nucleated RBC % Seg Neutrophils # Seg Neutrophils # Man Lymphocytes # (Manual) Eosinophils # (Manual) INR D-Dimer ABG pH 7.201 L POC ABG pCO2 54.5 H POC ABG pO2 74.0 L ABG pO2 ABG HCO3 ABG O2 Saturation ABG Base Excess ABG Hemoglobin 9.7 L ABG Oxyhemoglobin 91.1 L ABG Sodium 146.2 H ABG Potassium ABG Chloride 114.0 H ABG Glucose 155 H Oxyhemoglobin Carboxyhemoglobin Sodium Potassium Chloride Carbon Dioxide BUN Creatinine Glucose POC Glucose 164 H 152 H Hemoglobin A1c Lactic Acid Calcium Phosphorus Magnesium Ferritin Total Bilirubin AST ALT Lactate Dehydrogenase C-Reactive Protein Albumin Triglycerides Arterial Blood Glucose 155 H Arterial Blood Ionized Calcium 3.9 L Urine Creatinine Coronavirus (PCR) Crossmatch 02/04/21 02/04/21 02/04/21 04:45 04:45 04:45 WBC RBC 2.75 L Hgb 9.1 L Hct 26.9 L MCV 98 H MCH 33 H MCHC RDW Plt Count Lymph % (Auto) 6.8 L Lymph # (Auto) 0.5 L Seg Neutrophils % 87.2 H Seg Neuts % (Manual) Lymphocytes % (Manual) Nucleated RBC % Seg Neutrophils # Seg Neutrophils # Man Lymphocytes # (Manual) Eosinophils # (Manual) INR D-Dimer ABG pH POC ABG pCO2 POC ABG pO2 ABG pO2 ABG HCO3 ABG O2 Saturation ABG Base Excess ABG Hemoglobin ABG Oxyhemoglobin ABG Sodium ABG Potassium ABG Chloride ABG Glucose Oxyhemoglobin Carboxyhemoglobin Sodium 149 H Potassium Chloride 111.5 H Carbon Dioxide BUN 99 H Creatinine 8.5 H Glucose 139 H POC Glucose Hemoglobin A1c Lactic Acid Calcium 6.8 L Phosphorus 8.40 H Magnesium Ferritin Total Bilirubin AST ALT Lactate Dehydrogenase C-Reactive Protein Albumin Triglycerides Arterial Blood Glucose Arterial Blood Ionized Calcium Urine Creatinine Coronavirus (PCR) Crossmatch 02/04/21 02/04/21 02/04/21 06:05 11:44 18:00 WBC RBC Hgb Hct MCV MCH MCHC RDW Plt Count Lymph % (Auto) Lymph # (Auto) Seg Neutrophils % Seg Neuts % (Manual) Lymphocytes % (Manual) Nucleated RBC % Seg Neutrophils # Seg Neutrophils # Man Lymphocytes # (Manual) Eosinophils # (Manual) INR D-Dimer ABG pH POC ABG pCO2 POC ABG pO2 ABG pO2 ABG HCO3 ABG O2 Saturation ABG Base Excess ABG Hemoglobin ABG Oxyhemoglobin ABG Sodium ABG Potassium ABG Chloride ABG Glucose Oxyhemoglobin Carboxyhemoglobin Sodium Potassium Chloride Carbon Dioxide BUN Creatinine Glucose POC Glucose 138 H 129 H 163 H Hemoglobin A1c Lactic Acid Calcium Phosphorus Magnesium Ferritin Total Bilirubin AST ALT Lactate Dehydrogenase C-Reactive Protein Albumin Triglycerides Arterial Blood Glucose Arterial Blood Ionized Calcium Urine Creatinine Coronavirus (PCR) Crossmatch 02/04/21 02/05/21 02/05/21 23:48 01:50 01:50 WBC RBC 2.43 L Hgb 8.3 L Hct 23.6 L MCV 97 H MCH 34 H MCHC 35 H RDW Plt Count 137 L Lymph % (Auto) 8.4 L Lymph # (Auto) 0.6 L Seg Neutrophils % 86.1 H Seg Neuts % (Manual) Lymphocytes % (Manual) Nucleated RBC % Seg Neutrophils # Seg Neutrophils # Man Lymphocytes # (Manual) Eosinophils # (Manual) INR D-Dimer ABG pH POC ABG pCO2 POC ABG pO2 ABG pO2 ABG HCO3 ABG O2 Saturation ABG Base Excess ABG Hemoglobin ABG Oxyhemoglobin ABG Sodium ABG Potassium ABG Chloride ABG Glucose Oxyhemoglobin Carboxyhemoglobin Sodium Potassium Chloride Carbon Dioxide BUN Creatinine Glucose POC Glucose 157 H Hemoglobin A1c Lactic Acid Calcium Phosphorus 5.60 H D Magnesium Ferritin Total Bilirubin AST ALT Lactate Dehydrogenase C-Reactive Protein Albumin Triglycerides Arterial Blood Glucose Arterial Blood Ionized Calcium Urine Creatinine Coronavirus (PCR) Crossmatch 02/05/21 02/05/21 02/05/21 03:44 05:27 09:15 WBC RBC Hgb Hct MCV MCH MCHC RDW Plt Count Lymph % (Auto) Lymph # (Auto) Seg Neutrophils % Seg Neuts % (Manual) Lymphocytes % (Manual) Nucleated RBC % Seg Neutrophils # Seg Neutrophils # Man Lymphocytes # (Manual) Eosinophils # (Manual) INR D-Dimer ABG pH 7.202 L POC ABG pCO2 63.7 H POC ABG pO2 69.0 L ABG pO2 ABG HCO3 ABG O2 Saturation ABG Base Excess ABG Hemoglobin 9.4 L ABG Oxyhemoglobin ABG Sodium ABG Potassium ABG Chloride 108.0 H ABG Glucose 186 H Oxyhemoglobin Carboxyhemoglobin Sodium Potassium Chloride Carbon Dioxide BUN 78 H Creatinine 8.0 H Glucose 163 H POC Glucose 157 H Hemoglobin A1c Lactic Acid Calcium 6.3 L Phosphorus Magnesium Ferritin Total Bilirubin AST ALT Lactate Dehydrogenase C-Reactive Protein Albumin Triglycerides Arterial Blood Glucose 186 H Arterial Blood Ionized Calcium 3.9 L Urine Creatinine Coronavirus (PCR) Crossmatch 02/05/21 02/05/21 02/05/21 11:47 17:39 23:40 WBC RBC Hgb Hct MCV MCH MCHC RDW Plt Count Lymph % (Auto) Lymph # (Auto) Seg Neutrophils % Seg Neuts % (Manual) Lymphocytes % (Manual) Nucleated RBC % Seg Neutrophils # Seg Neutrophils # Man Lymphocytes # (Manual) Eosinophils # (Manual) INR D-Dimer ABG pH 7.273 L POC ABG pCO2 62.1 H POC ABG pO2 72.0 L ABG pO2 ABG HCO3 ABG O2 Saturation ABG Base Excess ABG Hemoglobin 9.1 L ABG Oxyhemoglobin 91.3 L ABG Sodium ABG Potassium 3.1 L ABG Chloride ABG Glucose 125 H Oxyhemoglobin Carboxyhemoglobin Sodium Potassium Chloride Carbon Dioxide BUN Creatinine Glucose POC Glucose 126 H 126 H Hemoglobin A1c Lactic Acid Calcium Phosphorus Magnesium Ferritin Total Bilirubin AST ALT Lactate Dehydrogenase C-Reactive Protein Albumin Triglycerides Arterial Blood Glucose 125 H Arterial Blood Ionized Calcium 4.0 L Urine Creatinine Coronavirus (PCR) Crossmatch 02/06/21 02/06/21 02/06/21 04:30 04:57 09:45 WBC RBC Hgb Hct MCV MCH MCHC RDW Plt Count Lymph % (Auto) Lymph # (Auto) Seg Neutrophils % Seg Neuts % (Manual) Lymphocytes % (Manual) Nucleated RBC % Seg Neutrophils # Seg Neutrophils # Man Lymphocytes # (Manual) Eosinophils # (Manual) INR D-Dimer ABG pH 7.159 L 7.138 L* POC ABG pCO2 76.3 H POC ABG pO2 66.9 L ABG pO2 ABG HCO3 ABG O2 Saturation 93.4 L ABG Base Excess -6.0 L ABG Hemoglobin 11.2 L 11.7 L ABG Oxyhemoglobin 88.2 L ABG Sodium ABG Potassium ABG Chloride ABG Glucose 134 H Oxyhemoglobin 91.2 L Carboxyhemoglobin Sodium Potassium Chloride Carbon Dioxide BUN Creatinine Glucose POC Glucose 124 H Hemoglobin A1c Lactic Acid Calcium Phosphorus Magnesium Ferritin Total Bilirubin AST ALT Lactate Dehydrogenase C-Reactive Protein Albumin Triglycerides Arterial Blood Glucose 134 H Arterial Blood Ionized Calcium 3.9 L Urine Creatinine Coronavirus (PCR) Crossmatch 02/06/21 02/06/21 02/06/21 11:11 17:00 17:00 WBC RBC Hgb Hct MCV MCH MCHC RDW Plt Count Lymph % (Auto) Lymph # (Auto) Seg Neutrophils % Seg Neuts % (Manual) Lymphocytes % (Manual) Nucleated RBC % Seg Neutrophils # Seg Neutrophils # Man Lymphocytes # (Manual) Eosinophils # (Manual) INR D-Dimer ABG pH 7.158 L* POC ABG pCO2 POC ABG pO2 ABG pO2 109.8 H ABG HCO3 28.7 H ABG O2 Saturation ABG Base Excess -2.5 L ABG Hemoglobin ABG Oxyhemoglobin ABG Sodium ABG Potassium ABG Chloride ABG Glucose Oxyhemoglobin 94.5 L Carboxyhemoglobin Sodium Potassium Chloride Carbon Dioxide BUN Creatinine Glucose POC Glucose 120 H Hemoglobin A1c Lactic Acid Calcium Phosphorus Magnesium Ferritin Total Bilirubin AST ALT Lactate Dehydrogenase C-Reactive Protein Albumin Triglycerides 503 H Arterial Blood Glucose Arterial Blood Ionized Calcium Urine Creatinine Coronavirus (PCR) Crossmatch 02/06/21 02/06/21 02/06/21 17:28 20:16 Unknown WBC 13.5 H RBC 2.98 L Hgb 9.3 L Hct 28.6 L MCV 96 H MCH MCHC RDW Plt Count Lymph % (Auto) Lymph # (Auto) Seg Neutrophils % Seg Neuts % (Manual) 87.0 H Lymphocytes % (Manual) 7.0 L Nucleated RBC % Seg Neutrophils # Seg Neutrophils # Man 11.7 H Lymphocytes # (Manual) 0.9 L Eosinophils # (Manual) 0.5 H INR D-Dimer ABG pH POC ABG pCO2 POC ABG pO2 ABG pO2 ABG HCO3 ABG O2 Saturation ABG Base Excess ABG Hemoglobin ABG Oxyhemoglobin ABG Sodium ABG Potassium ABG Chloride ABG Glucose Oxyhemoglobin Carboxyhemoglobin Sodium Potassium Chloride Carbon Dioxide BUN Creatinine Glucose POC Glucose 147 H 164 H Hemoglobin A1c Lactic Acid Calcium Phosphorus Magnesium Ferritin Total Bilirubin AST ALT Lactate Dehydrogenase C-Reactive Protein Albumin Triglycerides Arterial Blood Glucose Arterial Blood Ionized Calcium Urine Creatinine Coronavirus (PCR) Crossmatch 02/06/21 02/07/21 02/07/21 Unknown 01:21 04:00 WBC 12.0 H RBC 2.61 L Hgb 8.2 L Hct 24.5 L MCV MCH MCHC RDW Plt Count Lymph % (Auto) 8.9 L Lymph # (Auto) 1.1 L Seg Neutrophils % 86.3 H Seg Neuts % (Manual) Lymphocytes % (Manual) Nucleated RBC % Seg Neutrophils # 10.3 H Seg Neutrophils # Man Lymphocytes # (Manual) Eosinophils # (Manual) INR D-Dimer ABG pH POC ABG pCO2 POC ABG pO2 ABG pO2 ABG HCO3 ABG O2 Saturation ABG Base Excess ABG Hemoglobin ABG Oxyhemoglobin ABG Sodium ABG Potassium ABG Chloride ABG Glucose Oxyhemoglobin Carboxyhemoglobin Sodium Potassium 3.5 L Chloride Carbon Dioxide BUN 58 H Creatinine 6.6 H Glucose 107 H POC Glucose 173 H Hemoglobin A1c Lactic Acid Calcium 6.7 L Phosphorus 8.00 H D Magnesium Ferritin Total Bilirubin AST ALT Lactate Dehydrogenase C-Reactive Protein Albumin Triglycerides Arterial Blood Glucose Arterial Blood Ionized Calcium Urine Creatinine Coronavirus (PCR) Crossmatch 02/07/21 02/07/21 02/07/21 04:00 04:45 11:49 WBC RBC Hgb Hct MCV MCH MCHC RDW Plt Count Lymph % (Auto) Lymph # (Auto) Seg Neutrophils % Seg Neuts % (Manual) Lymphocytes % (Manual) Nucleated RBC % Seg Neutrophils # Seg Neutrophils # Man Lymphocytes # (Manual) Eosinophils # (Manual) INR D-Dimer ABG pH 7.287 L POC ABG pCO2 64.8 H POC ABG pO2 74.0 L ABG pO2 ABG HCO3 ABG O2 Saturation ABG Base Excess ABG Hemoglobin 9.1 L ABG Oxyhemoglobin 92.0 L ABG Sodium ABG Potassium 2.8 L ABG Chloride ABG Glucose 226 H Oxyhemoglobin Carboxyhemoglobin Sodium Potassium Chloride Carbon Dioxide BUN Creatinine Glucose POC Glucose 170 H Hemoglobin A1c Lactic Acid Calcium Phosphorus 5.50 H D Magnesium Ferritin Total Bilirubin AST ALT Lactate Dehydrogenase C-Reactive Protein Albumin Triglycerides Arterial Blood Glucose 226 H Arterial Blood Ionized Calcium 3.7 L Urine Creatinine Coronavirus (PCR) Crossmatch 02/07/21 02/07/21 02/07/21 13:48 17:45 23:02 WBC RBC Hgb Hct MCV MCH MCHC RDW Plt Count Lymph % (Auto) Lymph # (Auto) Seg Neutrophils % Seg Neuts % (Manual) Lymphocytes % (Manual) Nucleated RBC % Seg Neutrophils # Seg Neutrophils # Man Lymphocytes # (Manual) Eosinophils # (Manual) INR D-Dimer ABG pH POC ABG pCO2 POC ABG pO2 ABG pO2 ABG HCO3 ABG O2 Saturation ABG Base Excess ABG Hemoglobin ABG Oxyhemoglobin ABG Sodium ABG Potassium ABG Chloride ABG Glucose Oxyhemoglobin Carboxyhemoglobin Sodium 136 L Potassium 2.6 L* D Chloride 95.1 L Carbon Dioxide 33 H D BUN 30 H Creatinine 3.6 H Glucose 184 H POC Glucose 172 H 172 H Hemoglobin A1c Lactic Acid Calcium 6.9 L Phosphorus Magnesium Ferritin Total Bilirubin AST ALT Lactate Dehydrogenase C-Reactive Protein Albumin Triglycerides Arterial Blood Glucose Arterial Blood Ionized Calcium Urine Creatinine Coronavirus (PCR) Crossmatch 02/08/21 02/08/21 02/08/21 05:22 06:00 06:00 WBC RBC 2.21 L Hgb 7.2 L Hct 21.0 L MCV 95 H MCH MCHC RDW Plt Count Lymph % (Auto) Lymph # (Auto) Seg Neutrophils % Seg Neuts % (Manual) 87.0 H Lymphocytes % (Manual) 4.0 L Nucleated RBC % Seg Neutrophils # Seg Neutrophils # Man 8.5 H Lymphocytes # (Manual) 0.4 L Eosinophils # (Manual) INR D-Dimer ABG pH POC ABG pCO2 POC ABG pO2 ABG pO2 ABG HCO3 ABG O2 Saturation ABG Base Excess ABG Hemoglobin ABG Oxyhemoglobin ABG Sodium ABG Potassium ABG Chloride ABG Glucose Oxyhemoglobin Carboxyhemoglobin Sodium 136 L Potassium 2.4 L* Chloride 93.1 L Carbon Dioxide 36 H BUN 43 H Creatinine 5.4 H Glucose 167 H POC Glucose 162 H Hemoglobin A1c Lactic Acid Calcium 6.3 L Phosphorus Magnesium Ferritin Total Bilirubin AST ALT Lactate Dehydrogenase C-Reactive Protein Albumin Triglycerides Arterial Blood Glucose Arterial Blood Ionized Calcium Urine Creatinine Coronavirus (PCR) Crossmatch 02/08/21 02/08/21 02/08/21 11:44 17:53 18:56 WBC RBC Hgb Hct MCV MCH MCHC RDW Plt Count Lymph % (Auto) Lymph # (Auto) Seg Neutrophils % Seg Neuts % (Manual) Lymphocytes % (Manual) Nucleated RBC % Seg Neutrophils # Seg Neutrophils # Man Lymphocytes # (Manual) Eosinophils # (Manual) INR D-Dimer ABG pH POC ABG pCO2 POC ABG pO2 ABG pO2 ABG HCO3 ABG O2 Saturation ABG Base Excess ABG Hemoglobin ABG Oxyhemoglobin ABG Sodium ABG Potassium ABG Chloride ABG Glucose Oxyhemoglobin Carboxyhemoglobin Sodium Potassium 2.9 L* D Chloride Carbon Dioxide BUN Creatinine Glucose POC Glucose 164 H 154 H Hemoglobin A1c Lactic Acid Calcium Phosphorus Magnesium Ferritin Total Bilirubin AST ALT Lactate Dehydrogenase C-Reactive Protein Albumin Triglycerides Arterial Blood Glucose Arterial Blood Ionized Calcium Urine Creatinine Coronavirus (PCR) Crossmatch 02/08/21 02/08/21 02/09/21 23:24 23:58 03:21 WBC RBC Hgb Hct MCV MCH MCHC RDW Plt Count Lymph % (Auto) Lymph # (Auto) Seg Neutrophils % Seg Neuts % (Manual) Lymphocytes % (Manual) Nucleated RBC % Seg Neutrophils # Seg Neutrophils # Man Lymphocytes # (Manual) Eosinophils # (Manual) INR D-Dimer ABG pH 7.319 L POC ABG pCO2 63.3 H 68.3 H POC ABG pO2 71.2 L 76.5 L ABG pO2 ABG HCO3 ABG O2 Saturation ABG Base Excess ABG Hemoglobin 8.2 L 7.0 L ABG Oxyhemoglobin 91.8 L 92.2 L ABG Sodium 134.6 L 133.0 L ABG Potassium 2.3 L 3.1 L ABG Chloride 96.0 L 95.0 L ABG Glucose 184 H 154 H Oxyhemoglobin Carboxyhemoglobin Sodium Potassium Chloride Carbon Dioxide BUN Creatinine Glucose POC Glucose 152 H Hemoglobin A1c Lactic Acid Calcium Phosphorus Magnesium Ferritin Total Bilirubin AST ALT Lactate Dehydrogenase C-Reactive Protein Albumin Triglycerides Arterial Blood Glucose 184 H 154 H Arterial Blood Ionized Calcium 3.6 L 3.5 L Urine Creatinine Coronavirus (PCR) Crossmatch 02/09/21 02/09/21 02/09/21 05:10 05:10 06:04 WBC RBC 2.14 L Hgb 7.0 L Hct 20.5 L MCV 96 H MCH 33 H MCHC RDW Plt Count Lymph % (Auto) Lymph # (Auto) Seg Neutrophils % Seg Neuts % (Manual) 82.0 H Lymphocytes % (Manual) 9.0 L Nucleated RBC % 1.0 H Seg Neutrophils # Seg Neutrophils # Man 8.9 H Lymphocytes # (Manual) 1.0 L Eosinophils # (Manual) INR D-Dimer ABG pH POC ABG pCO2 POC ABG pO2 ABG pO2 ABG HCO3 ABG O2 Saturation ABG Base Excess ABG Hemoglobin ABG Oxyhemoglobin ABG Sodium ABG Potassium ABG Chloride ABG Glucose Oxyhemoglobin Carboxyhemoglobin Sodium 135 L Potassium 3.2 L Chloride 91.0 L Carbon Dioxide 32 H BUN 54 H Creatinine 6.6 H Glucose 163 H POC Glucose 149 H Hemoglobin A1c Lactic Acid Calcium 6.2 L Phosphorus Magnesium Ferritin Total Bilirubin AST ALT Lactate Dehydrogenase C-Reactive Protein Albumin Triglycerides Arterial Blood Glucose Arterial Blood Ionized Calcium Urine Creatinine Coronavirus (PCR) Crossmatch 02/09/21 02/09/21 02/09/21 12:02 13:32 13:40 WBC RBC Hgb Hct MCV MCH MCHC RDW Plt Count Lymph % (Auto) Lymph # (Auto) Seg Neutrophils % Seg Neuts % (Manual) Lymphocytes % (Manual) Nucleated RBC % Seg Neutrophils # Seg Neutrophils # Man Lymphocytes # (Manual) Eosinophils # (Manual) INR D-Dimer ABG pH POC ABG pCO2 POC ABG pO2 ABG pO2 ABG HCO3 ABG O2 Saturation ABG Base Excess ABG Hemoglobin ABG Oxyhemoglobin ABG Sodium ABG Potassium ABG Chloride ABG Glucose Oxyhemoglobin Carboxyhemoglobin Sodium Potassium Chloride Carbon Dioxide BUN Creatinine Glucose POC Glucose 147 H Hemoglobin A1c Lactic Acid Calcium Phosphorus Magnesium Ferritin Total Bilirubin AST ALT Lactate Dehydrogenase C-Reactive Protein Albumin Triglycerides 250 H Arterial Blood Glucose Arterial Blood Ionized Calcium Urine Creatinine Coronavirus (PCR) Crossmatch See Detail 02/09/21 02/09/21 02/10/21 18:06 23:42 04:00 WBC RBC Hgb Hct MCV MCH MCHC RDW Plt Count Lymph % (Auto) Lymph # (Auto) Seg Neutrophils % Seg Neuts % (Manual) Lymphocytes % (Manual) Nucleated RBC % Seg Neutrophils # Seg Neutrophils # Man Lymphocytes # (Manual) Eosinophils # (Manual) INR D-Dimer ABG pH POC ABG pCO2 65.8 H POC ABG pO2 68.0 L ABG pO2 ABG HCO3 ABG O2 Saturation ABG Base Excess ABG Hemoglobin 8.3 L ABG Oxyhemoglobin ABG Sodium 132.4 L ABG Potassium 2.9 L ABG Chloride 92.0 L ABG Glucose 174 H Oxyhemoglobin Carboxyhemoglobin Sodium Potassium Chloride Carbon Dioxide BUN Creatinine Glucose POC Glucose 152 H 147 H Hemoglobin A1c Lactic Acid Calcium Phosphorus Magnesium Ferritin Total Bilirubin AST ALT Lactate Dehydrogenase C-Reactive Protein Albumin Triglycerides Arterial Blood Glucose 174 H Arterial Blood Ionized Calcium 3.4 L Urine Creatinine Coronavirus (PCR) Crossmatch 02/10/21 02/10/21 02/10/21 05:32 11:29 14:08 WBC 12.5 H RBC 2.14 L Hgb 6.6 L Hct 20.2 L MCV MCH MCHC RDW Plt Count Lymph % (Auto) Lymph # (Auto) Seg Neutrophils % Seg Neuts % (Manual) Lymphocytes % (Manual) Nucleated RBC % Seg Neutrophils # Seg Neutrophils # Man Lymphocytes # (Manual) Eosinophils # (Manual) INR D-Dimer ABG pH POC ABG pCO2 POC ABG pO2 ABG pO2 ABG HCO3 ABG O2 Saturation ABG Base Excess ABG Hemoglobin ABG Oxyhemoglobin ABG Sodium ABG Potassium ABG Chloride ABG Glucose Oxyhemoglobin Carboxyhemoglobin Sodium Potassium Chloride Carbon Dioxide BUN Creatinine Glucose POC Glucose 167 H 147 H Hemoglobin A1c Lactic Acid Calcium Phosphorus Magnesium Ferritin Total Bilirubin AST ALT Lactate Dehydrogenase C-Reactive Protein Albumin Triglycerides Arterial Blood Glucose Arterial Blood Ionized Calcium Urine Creatinine Coronavirus (PCR) Crossmatch 02/10/21 02/10/21 02/10/21 14:08 18:11 22:32 WBC RBC Hgb 6.4 L Hct 19.1 L* MCV MCH MCHC RDW Plt Count Lymph % (Auto) Lymph # (Auto) Seg Neutrophils % Seg Neuts % (Manual) Lymphocytes % (Manual) Nucleated RBC % Seg Neutrophils # Seg Neutrophils # Man Lymphocytes # (Manual) Eosinophils # (Manual) INR D-Dimer ABG pH POC ABG pCO2 POC ABG pO2 ABG pO2 ABG HCO3 ABG O2 Saturation ABG Base Excess ABG Hemoglobin ABG Oxyhemoglobin ABG Sodium ABG Potassium ABG Chloride ABG Glucose Oxyhemoglobin Carboxyhemoglobin Sodium 136 L Potassium 2.9 L* Chloride 90.2 L Carbon Dioxide 33 H BUN 42 H Creatinine 7.5 H Glucose 155 H POC Glucose 173 H Hemoglobin A1c Lactic Acid Calcium 6.1 L Phosphorus Magnesium Ferritin Total Bilirubin AST ALT Lactate Dehydrogenase C-Reactive Protein Albumin Triglycerides Arterial Blood Glucose Arterial Blood Ionized Calcium Urine Creatinine Coronavirus (PCR) Crossmatch 02/11/21 02/11/21 02/11/21 00:28 04:05 04:30 WBC RBC Hgb Hct MCV MCH MCHC RDW Plt Count Lymph % (Auto) Lymph # (Auto) Seg Neutrophils % Seg Neuts % (Manual) Lymphocytes % (Manual) Nucleated RBC % Seg Neutrophils # Seg Neutrophils # Man Lymphocytes # (Manual) Eosinophils # (Manual) INR D-Dimer ABG pH 7.307 L POC ABG pCO2 72.2 H POC ABG pO2 72.3 L ABG pO2 ABG HCO3 ABG O2 Saturation ABG Base Excess ABG Hemoglobin 8.2 L ABG Oxyhemoglobin ABG Sodium 132.3 L ABG Potassium 3.2 L ABG Chloride 91.0 L ABG Glucose 197 H Oxyhemoglobin Carboxyhemoglobin Sodium 135 L Potassium 3.3 L Chloride 87.1 L Carbon Dioxide 36 H BUN 71 H Creatinine 7.9 H Glucose 263 H POC Glucose 192 H Hemoglobin A1c Lactic Acid Calcium 6.2 L Phosphorus Magnesium Ferritin Total Bilirubin AST ALT Lactate Dehydrogenase C-Reactive Protein Albumin Triglycerides Arterial Blood Glucose 197 H Arterial Blood Ionized Calcium 3.3 L Urine Creatinine Coronavirus (PCR) Crossmatch 02/11/21 02/11/21 02/11/21 04:30 05:47 08:27 WBC RBC 2.22 L Hgb 7.2 L Hct 21.0 L MCV MCH MCHC RDW Plt Count Lymph % (Auto) 8.7 L Lymph # (Auto) 0.9 L Seg Neutrophils % 85.5 H Seg Neuts % (Manual) Lymphocytes % (Manual) Nucleated RBC % Seg Neutrophils # 9.2 H Seg Neutrophils # Man Lymphocytes # (Manual) Eosinophils # (Manual) INR 1.17 H D-Dimer 1930.92 H ABG pH POC ABG pCO2 POC ABG pO2 ABG pO2 ABG HCO3 ABG O2 Saturation ABG Base Excess ABG Hemoglobin ABG Oxyhemoglobin ABG Sodium ABG Potassium ABG Chloride ABG Glucose Oxyhemoglobin Carboxyhemoglobin Sodium Potassium Chloride Carbon Dioxide BUN Creatinine Glucose POC Glucose 189 H Hemoglobin A1c Lactic Acid Calcium Phosphorus Magnesium Ferritin Total Bilirubin AST ALT Lactate Dehydrogenase C-Reactive Protein Albumin Triglycerides Arterial Blood Glucose Arterial Blood Ionized Calcium Urine Creatinine Coronavirus (PCR) Crossmatch 02/11/21 02/11/21 02/11/21 09:00 09:00 13:18 WBC RBC Hgb Hct MCV MCH MCHC RDW Plt Count Lymph % (Auto) Lymph # (Auto) Seg Neutrophils % Seg Neuts % (Manual) Lymphocytes % (Manual) Nucleated RBC % Seg Neutrophils # Seg Neutrophils # Man Lymphocytes # (Manual) Eosinophils # (Manual) INR D-Dimer ABG pH POC ABG pCO2 POC ABG pO2 ABG pO2 ABG HCO3 ABG O2 Saturation ABG Base Excess ABG Hemoglobin ABG Oxyhemoglobin ABG Sodium ABG Potassium ABG Chloride ABG Glucose Oxyhemoglobin Carboxyhemoglobin Sodium Potassium Chloride Carbon Dioxide BUN Creatinine Glucose 126 H POC Glucose 160 H Hemoglobin A1c Lactic Acid Calcium Phosphorus Magnesium Ferritin 1253.0 H Total Bilirubin AST ALT Lactate Dehydrogenase 649 H C-Reactive Protein 12.60 H Albumin Triglycerides Arterial Blood Glucose Arterial Blood Ionized Calcium Urine Creatinine Coronavirus (PCR) Crossmatch 02/11/21 02/11/21 02/11/21 14:30 16:59 22:34 WBC RBC Hgb 7.1 L 6.7 L Hct 20.5 L 19.9 L* MCV MCH MCHC RDW Plt Count Lymph % (Auto) Lymph # (Auto) Seg Neutrophils % Seg Neuts % (Manual) Lymphocytes % (Manual) Nucleated RBC % Seg Neutrophils # Seg Neutrophils # Man Lymphocytes # (Manual) Eosinophils # (Manual) INR D-Dimer ABG pH POC ABG pCO2 POC ABG pO2 ABG pO2 ABG HCO3 ABG O2 Saturation ABG Base Excess ABG Hemoglobin ABG Oxyhemoglobin ABG Sodium ABG Potassium ABG Chloride ABG Glucose Oxyhemoglobin Carboxyhemoglobin Sodium Potassium Chloride Carbon Dioxide BUN Creatinine Glucose POC Glucose 151 H Hemoglobin A1c Lactic Acid Calcium Phosphorus Magnesium Ferritin Total Bilirubin AST ALT Lactate Dehydrogenase C-Reactive Protein Albumin Triglycerides Arterial Blood Glucose Arterial Blood Ionized Calcium Urine Creatinine Coronavirus (PCR) Crossmatch 02/11/21 02/12/21 02/12/21 23:42 04:41 05:19 WBC RBC Hgb Hct MCV MCH MCHC RDW Plt Count Lymph % (Auto) Lymph # (Auto) Seg Neutrophils % Seg Neuts % (Manual) Lymphocytes % (Manual) Nucleated RBC % Seg Neutrophils # Seg Neutrophils # Man Lymphocytes # (Manual) Eosinophils # (Manual) INR D-Dimer ABG pH POC ABG pCO2 POC ABG pO2 ABG pO2 69.0 L ABG HCO3 32.5 H ABG O2 Saturation ABG Base Excess 7.7 H ABG Hemoglobin 5.1 L ABG Oxyhemoglobin ABG Sodium ABG Potassium ABG Chloride ABG Glucose Oxyhemoglobin 94.7 L Carboxyhemoglobin Sodium Potassium Chloride Carbon Dioxide BUN Creatinine Glucose POC Glucose 165 H 153 H Hemoglobin A1c Lactic Acid Calcium Phosphorus Magnesium Ferritin Total Bilirubin AST ALT Lactate Dehydrogenase C-Reactive Protein Albumin Triglycerides Arterial Blood Glucose Arterial Blood Ionized Calcium Urine Creatinine Coronavirus (PCR) Crossmatch 02/12/21 02/12/21 02/12/21 06:35 06:35 08:40 WBC RBC 2.21 L Hgb 7.2 L Hct 20.7 L MCV MCH 33 H MCHC 35 H RDW Plt Count Lymph % (Auto) Lymph # (Auto) Seg Neutrophils % Seg Neuts % (Manual) Lymphocytes % (Manual) Nucleated RBC % Seg Neutrophils # Seg Neutrophils # Man Lymphocytes # (Manual) Eosinophils # (Manual) INR D-Dimer ABG pH POC ABG pCO2 POC ABG pO2 ABG pO2 ABG HCO3 ABG O2 Saturation ABG Base Excess ABG Hemoglobin ABG Oxyhemoglobin ABG Sodium ABG Potassium ABG Chloride ABG Glucose Oxyhemoglobin Carboxyhemoglobin Sodium 135 L Potassium 3.4 L Chloride 91.8 L Carbon Dioxide 36 H BUN 57 H Creatinine 6.8 H Glucose 163 H POC Glucose Hemoglobin A1c Lactic Acid Calcium 7.0 L Phosphorus Magnesium 1.60 L Ferritin Total Bilirubin AST ALT Lactate Dehydrogenase C-Reactive Protein Albumin Triglycerides Arterial Blood Glucose Arterial Blood Ionized Calcium Urine Creatinine Coronavirus (PCR) Crossmatch 02/12/21 02/12/21 02/12/21 10:45 12:04 17:19 WBC RBC Hgb Hct MCV MCH MCHC RDW Plt Count Lymph % (Auto) Lymph # (Auto) Seg Neutrophils % Seg Neuts % (Manual) Lymphocytes % (Manual) Nucleated RBC % Seg Neutrophils # Seg Neutrophils # Man Lymphocytes # (Manual) Eosinophils # (Manual) INR D-Dimer ABG pH POC ABG pCO2 POC ABG pO2 ABG pO2 ABG HCO3 ABG O2 Saturation ABG Base Excess ABG Hemoglobin ABG Oxyhemoglobin ABG Sodium ABG Potassium ABG Chloride ABG Glucose Oxyhemoglobin Carboxyhemoglobin Sodium Potassium Chloride Carbon Dioxide BUN Creatinine Glucose POC Glucose 165 H 165 H Hemoglobin A1c Lactic Acid Calcium Phosphorus Magnesium Ferritin Total Bilirubin AST ALT Lactate Dehydrogenase C-Reactive Protein Albumin Triglycerides 182 H Arterial Blood Glucose Arterial Blood Ionized Calcium Urine Creatinine Coronavirus (PCR) Crossmatch 02/12/21 02/13/21 02/13/21 23:18 05:00 05:36 WBC RBC Hgb Hct MCV MCH MCHC RDW Plt Count Lymph % (Auto) Lymph # (Auto) Seg Neutrophils % Seg Neuts % (Manual) Lymphocytes % (Manual) Nucleated RBC % Seg Neutrophils # Seg Neutrophils # Man Lymphocytes # (Manual) Eosinophils # (Manual) INR D-Dimer ABG pH POC ABG pCO2 60.8 H POC ABG pO2 76.4 L ABG pO2 ABG HCO3 ABG O2 Saturation ABG Base Excess ABG Hemoglobin 7.4 L ABG Oxyhemoglobin ABG Sodium 133.2 L ABG Potassium 3.3 L ABG Chloride 96.0 L ABG Glucose 168 H Oxyhemoglobin Carboxyhemoglobin Sodium Potassium Chloride Carbon Dioxide BUN Creatinine Glucose POC Glucose 163 H 151 H Hemoglobin A1c Lactic Acid Calcium Phosphorus Magnesium Ferritin Total Bilirubin AST ALT Lactate Dehydrogenase C-Reactive Protein Albumin Triglycerides Arterial Blood Glucose 168 H Arterial Blood Ionized Calcium 4.3 L Urine Creatinine Coronavirus (PCR) Crossmatch 02/13/21 02/13/21 02/13/21 06:40 06:40 06:40 WBC RBC 2.19 L Hgb 7.0 L Hct 20.8 L MCV 95 H MCH MCHC RDW Plt Count Lymph % (Auto) Lymph # (Auto) Seg Neutrophils % Seg Neuts % (Manual) Lymphocytes % (Manual) Nucleated RBC % Seg Neutrophils # Seg Neutrophils # Man Lymphocytes # (Manual) Eosinophils # (Manual) INR D-Dimer ABG pH POC ABG pCO2 POC ABG pO2 ABG pO2 ABG HCO3 ABG O2 Saturation ABG Base Excess ABG Hemoglobin ABG Oxyhemoglobin ABG Sodium ABG Potassium ABG Chloride ABG Glucose Oxyhemoglobin Carboxyhemoglobin Sodium 135 L Potassium 3.4 L Chloride 93.0 L Carbon Dioxide 32 H BUN 46 H Creatinine 5.8 H Glucose 148 H POC Glucose Hemoglobin A1c Lactic Acid Calcium 7.9 L Phosphorus Magnesium Ferritin Total Bilirubin AST ALT Lactate Dehydrogenase C-Reactive Protein 16.80 H Albumin Triglycerides Arterial Blood Glucose Arterial Blood Ionized Calcium Urine Creatinine Coronavirus (PCR) Crossmatch 02/13/21 02/13/21 02/13/21 06:40 07:38 07:38 WBC RBC Hgb Hct MCV MCH MCHC RDW Plt Count Lymph % (Auto) Lymph # (Auto) Seg Neutrophils % Seg Neuts % (Manual) Lymphocytes % (Manual) Nucleated RBC % Seg Neutrophils # Seg Neutrophils # Man Lymphocytes # (Manual) Eosinophils # (Manual) INR D-Dimer 1722.16 H ABG pH POC ABG pCO2 POC ABG pO2 ABG pO2 ABG HCO3 ABG O2 Saturation ABG Base Excess ABG Hemoglobin ABG Oxyhemoglobin ABG Sodium ABG Potassium ABG Chloride ABG Glucose Oxyhemoglobin Carboxyhemoglobin Sodium Potassium Chloride Carbon Dioxide BUN Creatinine Glucose POC Glucose Hemoglobin A1c Lactic Acid Calcium Phosphorus Magnesium 1.60 L Ferritin 976.5 H Total Bilirubin AST ALT Lactate Dehydrogenase C-Reactive Protein Albumin Triglycerides Arterial Blood Glucose Arterial Blood Ionized Calcium Urine Creatinine Coronavirus (PCR) Crossmatch 02/13/21 02/13/21 02/13/21 12:24 16:57 23:32 WBC RBC Hgb Hct MCV MCH MCHC RDW Plt Count Lymph % (Auto) Lymph # (Auto) Seg Neutrophils % Seg Neuts % (Manual) Lymphocytes % (Manual) Nucleated RBC % Seg Neutrophils # Seg Neutrophils # Man Lymphocytes # (Manual) Eosinophils # (Manual) INR D-Dimer ABG pH POC ABG pCO2 POC ABG pO2 ABG pO2 ABG HCO3 ABG O2 Saturation ABG Base Excess ABG Hemoglobin ABG Oxyhemoglobin ABG Sodium ABG Potassium ABG Chloride ABG Glucose Oxyhemoglobin Carboxyhemoglobin Sodium Potassium Chloride Carbon Dioxide BUN Creatinine Glucose POC Glucose 141 H 156 H 161 H Hemoglobin A1c Lactic Acid Calcium Phosphorus Magnesium Ferritin Total Bilirubin AST ALT Lactate Dehydrogenase C-Reactive Protein Albumin Triglycerides Arterial Blood Glucose Arterial Blood Ionized Calcium Urine Creatinine Coronavirus (PCR) Crossmatch 02/14/21 02/14/21 02/14/21 04:00 05:41 11:00 WBC RBC 2.14 L Hgb 6.9 L Hct 20.7 L MCV 97 H MCH 33 H MCHC RDW Plt Count Lymph % (Auto) Lymph # (Auto) Seg Neutrophils % Seg Neuts % (Manual) Lymphocytes % (Manual) Nucleated RBC % Seg Neutrophils # Seg Neutrophils # Man Lymphocytes # (Manual) Eosinophils # (Manual) INR D-Dimer ABG pH POC ABG pCO2 POC ABG pO2 ABG pO2 ABG HCO3 ABG O2 Saturation ABG Base Excess ABG Hemoglobin ABG Oxyhemoglobin ABG Sodium ABG Potassium ABG Chloride ABG Glucose Oxyhemoglobin Carboxyhemoglobin Sodium Potassium Chloride Carbon Dioxide BUN Creatinine Glucose POC Glucose 143 H Hemoglobin A1c Lactic Acid Calcium Phosphorus Magnesium Ferritin Total Bilirubin AST ALT Lactate Dehydrogenase C-Reactive Protein Albumin Triglycerides Arterial Blood Glucose Arterial Blood Ionized Calcium Urine Creatinine Coronavirus (PCR) Crossmatch See Detail 02/14/21 02/14/21 02/14/21 11:51 18:08 23:41 WBC RBC Hgb Hct MCV MCH MCHC RDW Plt Count Lymph % (Auto) Lymph # (Auto) Seg Neutrophils % Seg Neuts % (Manual) Lymphocytes % (Manual) Nucleated RBC % Seg Neutrophils # Seg Neutrophils # Man Lymphocytes # (Manual) Eosinophils # (Manual) INR D-Dimer ABG pH POC ABG pCO2 POC ABG pO2 ABG pO2 ABG HCO3 ABG O2 Saturation ABG Base Excess ABG Hemoglobin ABG Oxyhemoglobin ABG Sodium ABG Potassium ABG Chloride ABG Glucose Oxyhemoglobin Carboxyhemoglobin Sodium Potassium Chloride Carbon Dioxide BUN Creatinine Glucose POC Glucose 113 H 123 H 120 H Hemoglobin A1c Lactic Acid Calcium Phosphorus Magnesium Ferritin Total Bilirubin AST ALT Lactate Dehydrogenase C-Reactive Protein Albumin Triglycerides Arterial Blood Glucose Arterial Blood Ionized Calcium Urine Creatinine Coronavirus (PCR) Crossmatch 02/14/21 02/15/21 02/15/21 Unknown 05:00 05:00 WBC RBC Hgb Hct MCV MCH MCHC RDW Plt Count Lymph % (Auto) Lymph # (Auto) Seg Neutrophils % Seg Neuts % (Manual) Lymphocytes % (Manual) Nucleated RBC % Seg Neutrophils # Seg Neutrophils # Man Lymphocytes # (Manual) Eosinophils # (Manual) INR D-Dimer ABG pH POC ABG pCO2 53.4 H POC ABG pO2 61.8 L ABG pO2 ABG HCO3 ABG O2 Saturation ABG Base Excess ABG Hemoglobin 7.7 L ABG Oxyhemoglobin 88.8 L ABG Sodium ABG Potassium ABG Chloride ABG Glucose 143 H Oxyhemoglobin Carboxyhemoglobin 1.6 H Sodium Potassium Chloride 96.9 L Carbon Dioxide 33 H 31 H BUN 40 H 38 H Creatinine 5.2 H 4.8 H Glucose 152 H 132 H POC Glucose Hemoglobin A1c Lactic Acid Calcium 7.9 L Phosphorus Magnesium Ferritin Total Bilirubin AST ALT Lactate Dehydrogenase C-Reactive Protein Albumin Triglycerides Arterial Blood Glucose 143 H Arterial Blood Ionized Calcium Urine Creatinine Coronavirus (PCR) Crossmatch 02/15/21 02/15/21 02/15/21 05:00 05:27 12:05 WBC RBC 2.30 L Hgb 7.1 L Hct 22.1 L MCV 96 H MCH MCHC RDW 15.7 H Plt Count Lymph % (Auto) 11.0 L Lymph # (Auto) 1.1 L Seg Neutrophils % 83.0 H Seg Neuts % (Manual) Lymphocytes % (Manual) Nucleated RBC % Seg Neutrophils # 8.6 H Seg Neutrophils # Man Lymphocytes # (Manual) Eosinophils # (Manual) INR D-Dimer ABG pH POC ABG pCO2 POC ABG pO2 ABG pO2 ABG HCO3 ABG O2 Saturation ABG Base Excess ABG Hemoglobin ABG Oxyhemoglobin ABG Sodium ABG Potassium ABG Chloride ABG Glucose Oxyhemoglobin Carboxyhemoglobin Sodium Potassium Chloride Carbon Dioxide BUN Creatinine Glucose POC Glucose 133 H 123 H Hemoglobin A1c Lactic Acid Calcium Phosphorus Magnesium Ferritin Total Bilirubin AST ALT Lactate Dehydrogenase C-Reactive Protein Albumin Triglycerides Arterial Blood Glucose Arterial Blood Ionized Calcium Urine Creatinine Coronavirus (PCR) Crossmatch 02/15/21 02/15/21 02/16/21 17:08 23:52 03:44 WBC RBC Hgb Hct MCV MCH MCHC RDW Plt Count Lymph % (Auto) Lymph # (Auto) Seg Neutrophils % Seg Neuts % (Manual) Lymphocytes % (Manual) Nucleated RBC % Seg Neutrophils # Seg Neutrophils # Man Lymphocytes # (Manual) Eosinophils # (Manual) INR D-Dimer ABG pH 7.307 L POC ABG pCO2 59.5 H POC ABG pO2 63.2 L ABG pO2 ABG HCO3 ABG O2 Saturation ABG Base Excess ABG Hemoglobin 9.3 L ABG Oxyhemoglobin ABG Sodium ABG Potassium ABG Chloride ABG Glucose 148 H Oxyhemoglobin Carboxyhemoglobin Sodium Potassium Chloride Carbon Dioxide BUN Creatinine Glucose POC Glucose 129 H 136 H Hemoglobin A1c Lactic Acid Calcium Phosphorus Magnesium Ferritin Total Bilirubin AST ALT Lactate Dehydrogenase C-Reactive Protein Albumin Triglycerides Arterial Blood Glucose 148 H Arterial Blood Ionized Calcium Urine Creatinine Coronavirus (PCR) Crossmatch 02/16/21 02/16/21 02/16/21 05:26 06:00 12:14 WBC RBC Hgb Hct MCV MCH MCHC RDW Plt Count Lymph % (Auto) Lymph # (Auto) Seg Neutrophils % Seg Neuts % (Manual) Lymphocytes % (Manual) Nucleated RBC % Seg Neutrophils # Seg Neutrophils # Man Lymphocytes # (Manual) Eosinophils # (Manual) INR D-Dimer ABG pH POC ABG pCO2 POC ABG pO2 ABG pO2 ABG HCO3 ABG O2 Saturation ABG Base Excess ABG Hemoglobin ABG Oxyhemoglobin ABG Sodium ABG Potassium ABG Chloride ABG Glucose Oxyhemoglobin Carboxyhemoglobin Sodium Potassium Chloride Carbon Dioxide BUN 52 H Creatinine 6.0 H Glucose 138 H POC Glucose 135 H 128 H Hemoglobin A1c Lactic Acid Calcium Phosphorus Magnesium Ferritin Total Bilirubin AST ALT Lactate Dehydrogenase C-Reactive Protein Albumin Triglycerides Arterial Blood Glucose Arterial Blood Ionized Calcium Urine Creatinine Coronavirus (PCR) Crossmatch 02/16/21 02/16/21 02/16/21 17:09 17:09 17:09 WBC RBC Hgb Hct MCV MCH MCHC RDW Plt Count Lymph % (Auto) Lymph # (Auto) Seg Neutrophils % Seg Neuts % (Manual) Lymphocytes % (Manual) Nucleated RBC % Seg Neutrophils # Seg Neutrophils # Man Lymphocytes # (Manual) Eosinophils # (Manual) INR D-Dimer 4256.08 H ABG pH POC ABG pCO2 POC ABG pO2 ABG pO2 ABG HCO3 ABG O2 Saturation ABG Base Excess ABG Hemoglobin ABG Oxyhemoglobin ABG Sodium ABG Potassium ABG Chloride ABG Glucose Oxyhemoglobin Carboxyhemoglobin Sodium Potassium Chloride Carbon Dioxide BUN Creatinine Glucose POC Glucose Hemoglobin A1c Lactic Acid Calcium Phosphorus Magnesium Ferritin 980.6 H Total Bilirubin AST ALT Lactate Dehydrogenase 441 H C-Reactive Protein 20.20 H Albumin Triglycerides Arterial Blood Glucose Arterial Blood Ionized Calcium Urine Creatinine Coronavirus (PCR) Crossmatch 02/16/21 02/16/21 02/16/21 17:25 23:16 Unknown WBC RBC 2.19 L Hgb 7.1 L Hct 21.3 L MCV 98 H MCH 33 H MCHC RDW 16.0 H Plt Count Lymph % (Auto) Lymph # (Auto) Seg Neutrophils % Seg Neuts % (Manual) 85.0 H Lymphocytes % (Manual) 6.0 L Nucleated RBC % 4.0 H Seg Neutrophils # Seg Neutrophils # Man Lymphocytes # (Manual) 0.5 L Eosinophils # (Manual) INR D-Dimer ABG pH POC ABG pCO2 POC ABG pO2 ABG pO2 ABG HCO3 ABG O2 Saturation ABG Base Excess ABG Hemoglobin ABG Oxyhemoglobin ABG Sodium ABG Potassium ABG Chloride ABG Glucose Oxyhemoglobin Carboxyhemoglobin Sodium Potassium Chloride Carbon Dioxide BUN Creatinine Glucose POC Glucose 146 H 150 H Hemoglobin A1c Lactic Acid Calcium Phosphorus Magnesium Ferritin Total Bilirubin AST ALT Lactate Dehydrogenase C-Reactive Protein Albumin Triglycerides Arterial Blood Glucose Arterial Blood Ionized Calcium Urine Creatinine Coronavirus (PCR) Crossmatch 02/17/21 02/17/21 02/17/21 04:00 04:14 04:14 WBC RBC Hgb Hct MCV MCH MCHC RDW Plt Count Lymph % (Auto) Lymph # (Auto) Seg Neutrophils % Seg Neuts % (Manual) Lymphocytes % (Manual) Nucleated RBC % Seg Neutrophils # Seg Neutrophils # Man Lymphocytes # (Manual) Eosinophils # (Manual) INR D-Dimer 3183.35 H ABG pH 7.293 L POC ABG pCO2 59.5 H POC ABG pO2 68.1 L ABG pO2 ABG HCO3 ABG O2 Saturation ABG Base Excess ABG Hemoglobin 7.7 L ABG Oxyhemoglobin ABG Sodium 133.4 L ABG Potassium ABG Chloride ABG Glucose 143 H Oxyhemoglobin Carboxyhemoglobin Sodium 136 L Potassium Chloride 97.3 L Carbon Dioxide BUN 49 H Creatinine 5.3 H Glucose 139 H POC Glucose Hemoglobin A1c Lactic Acid Calcium Phosphorus Magnesium Ferritin Total Bilirubin AST ALT Lactate Dehydrogenase C-Reactive Protein Albumin Triglycerides Arterial Blood Glucose 143 H Arterial Blood Ionized Calcium Urine Creatinine Coronavirus (PCR) Crossmatch 02/17/21 02/17/21 02/17/21 04:14 04:14 04:14 WBC RBC 2.14 L Hgb 6.9 L Hct 21.0 L MCV 98 H MCH MCHC RDW 15.8 H Plt Count Lymph % (Auto) Lymph # (Auto) Seg Neutrophils % Seg Neuts % (Manual) Lymphocytes % (Manual) Nucleated RBC % Seg Neutrophils # Seg Neutrophils # Man Lymphocytes # (Manual) Eosinophils # (Manual) INR D-Dimer ABG pH POC ABG pCO2 POC ABG pO2 ABG pO2 ABG HCO3 ABG O2 Saturation ABG Base Excess ABG Hemoglobin ABG Oxyhemoglobin ABG Sodium ABG Potassium ABG Chloride ABG Glucose Oxyhemoglobin Carboxyhemoglobin Sodium Potassium Chloride Carbon Dioxide BUN Creatinine Glucose POC Glucose Hemoglobin A1c Lactic Acid Calcium Phosphorus Magnesium Ferritin 894.0 H Total Bilirubin AST ALT Lactate Dehydrogenase 399 H C-Reactive Protein 22.10 H Albumin Triglycerides Arterial Blood Glucose Arterial Blood Ionized Calcium Urine Creatinine Coronavirus (PCR) Crossmatch 02/17/21 07:45 WBC RBC Hgb Hct MCV MCH MCHC RDW Plt Count Lymph % (Auto) Lymph # (Auto) Seg Neutrophils % Seg Neuts % (Manual) Lymphocytes % (Manual) Nucleated RBC % Seg Neutrophils # Seg Neutrophils # Man Lymphocytes # (Manual) Eosinophils # (Manual) INR D-Dimer ABG pH POC ABG pCO2 POC ABG pO2 ABG pO2 ABG HCO3 ABG O2 Saturation ABG Base Excess ABG Hemoglobin ABG Oxyhemoglobin ABG Sodium ABG Potassium ABG Chloride ABG Glucose Oxyhemoglobin Carboxyhemoglobin Sodium Potassium Chloride Carbon Dioxide BUN Creatinine Glucose POC Glucose Hemoglobin A1c Lactic Acid Calcium Phosphorus Magnesium Ferritin Total Bilirubin AST ALT Lactate Dehydrogenase C-Reactive Protein Albumin Triglycerides Arterial Blood Glucose Arterial Blood Ionized Calcium Urine Creatinine Coronavirus (PCR) Crossmatch See Detail
[2021-02-17 12:45] LABS: Hematocrit 22.8 % (35.5-45.6); Hemoglobin 7.6 gm/dl (11.8-15.2)
--- NOTE | 2021-02-17 13:21 | Progress Note ---
Assessment and Plan Acute Hypoxic respiratory failure COVID-19 PNA Severe sepsis with septic shock Acute kidney injury secondary to ATN Hyperkalemia Hypernatremia DM2 on insulin Anemia Plan: will hold daily HD for now to PRN as discussed with Dr reddy Initiated on HD on 02/03/21 S/P Right IJ Trialysis dialysis catheter placement by Dr Reddy Strict I&O's monitoring, no urine output recorded Renally dose medications Assess dialysis needs daily Monitor for renal recovery Subjective Date of service: 02/17/21 Principal diagnosis: DEISI Interval history: tolerated HD yesterday Objective - Vital Signs Vital signs: Vital Signs - 12hr 02/17/21 02/17/21 02/17/21 01:30 02:00 02:30 Temperature Pulse Rate 89 87 84 Pulse Rate [ From Monitor] Respiratory 34 H 34 H 34 H Rate Blood Pressure 89/56 88/57 88/57 O2 Sat by Pulse 92 91 92 Oximetry 02/17/21 02/17/21 02/17/21 03:00 03:30 04:00 Temperature 99.8 F H Pulse Rate 83 80 80 Pulse Rate [ 81 From Monitor] Respiratory 34 H 31 H 34 H Rate Blood Pressure 92/57 90/56 87/56 O2 Sat by Pulse 92 91 92 Oximetry 02/17/21 02/17/21 02/17/21 04:30 05:01 05:09 Temperature Pulse Rate 82 82 81 Pulse Rate [ From Monitor] Respiratory 34 H 34 H Rate Blood Pressure 93/59 88/56 O2 Sat by Pulse 93 93 93 Oximetry 02/17/21 02/17/21 02/17/21 05:30 06:00 06:30 Temperature Pulse Rate 81 86 87 Pulse Rate [ From Monitor] Respiratory 34 H 34 H 34 H Rate Blood Pressure 87/55 92/58 93/57 O2 Sat by Pulse 93 92 93 Oximetry 02/17/21 02/17/21 02/17/21 07:00 07:30 07:59 Temperature Pulse Rate 87 86 89 Pulse Rate [ From Monitor] Respiratory 34 H 35 H Rate Blood Pressure 93/58 100/63 106/69 O2 Sat by Pulse 93 92 96 Oximetry 02/17/21 02/17/21 02/17/21 08:00 08:30 09:00 Temperature 99.2 F Pulse Rate 89 86 86 Pulse Rate [ 87 From Monitor] Respiratory 35 H 34 H 35 H Rate Blood Pressure 106/69 99/62 100/62 O2 Sat by Pulse 95 94 94 Oximetry 02/17/21 02/17/21 02/17/21 09:30 10:00 10:03 Temperature 99.2 F Pulse Rate 86 86 88 Pulse Rate [ From Monitor] Respiratory 35 H 35 H 35 H Rate Blood Pressure 97/62 94/61 94/61 O2 Sat by Pulse 94 93 93 Oximetry 02/17/21 02/17/21 02/17/21 10:30 11:00 11:21 Temperature Pulse Rate 89 92 H 91 H Pulse Rate [ From Monitor] Respiratory 36 H 34 H Rate Blood Pressure 104/63 93/52 93/52 O2 Sat by Pulse 92 92 92 Oximetry 02/17/21 02/17/21 02/17/21 11:30 12:00 12:11 Temperature 99.4 F Pulse Rate 94 H 89 86 Pulse Rate [ From Monitor] Respiratory 34 H 35 H 35 H Rate Blood Pressure 97/61 91/53 91/53 O2 Sat by Pulse 94 91 92 Oximetry 02/17/21 02/17/21 02/17/21 12:21 12:30 13:00 Temperature Pulse Rate 83 84 80 Pulse Rate [ From Monitor] Respiratory 23 28 H 35 H Rate Blood Pressure 98/60 97/61 96/57 O2 Sat by Pulse 93 94 94 Oximetry - Lab 02/17/21 12:25 02/17/21 04:14 Most recent lab results ABG pH 7.293 (7.320-7.450) L 02/17/21 04:00 ABG pCO2 51.2 mm Hg 02/12/21 04:41 ABG pO2 69.0 mm Hg (80.0-90.0) L 02/12/21 04:41 ABG HCO3 32.5 mmol/L (20.0-26.0) H 02/12/21 04:41 ABG O2 Saturation 91.2 (0-100) 02/17/21 04:00 Calcium 8.7 mg/dL (8.4-10.2) 02/17/21 04:14 Phosphorus 3.90 mg/dL (2.5-4.5) 02/13/21 06:40 Magnesium 1.70 mg/dL (1.7-2.3) 02/16/21 17:09 Urine Creatinine 53.0 mg/dL (0.1-20.0) H 01/30/21 12:00 Urine Sodium 28 mmol/L 01/22/21 22:39 Medications & Allergies - Medications Allergies/Adverse Reactions: Allergies No Known Allergies Allergy (Unverified 03/12/20 13:41) Home Medications: Home Medications Medication Instructions Recorded Confirmed Last Taken Type Clindamycin [Clindamycin CAP] 300 mg PO Q8H #21 cap 03/12/20 Unknown Rx Insulin NPH/Regular [Novolin 70/30] 18 unit SUB-Q TIDAC #1 vial 03/12/20 Unknown Rx Syringe-Needle,Insulin,0.5 ml 1 box MC TID #1 box 03/12/20 Unknown Rx [Insulin Syringe/Needle 0.5 ML] Active Medications: Generic Name Dose Route Start Last Admin Trade Name Freq PRN Reason Stop Dose Admin Acetaminophen 650 mg 01/23/21 02:25 02/11/21 18:20 Acetaminophen 650 Mg Rect Supp [place] 650 mg Q4H PRN Administration Pain, Mild (1-3) Acetaminophen 650 mg 01/24/21 12:58 02/15/21 18:06 Acetaminophen 325 Mg/10.15 Ml Oral Liqd Unit Dose FEEDTUBE 650 mg Q6H PRN Administration Pain, Mild (1-3) Lipase/Protease/Amylase 1 each 01/26/21 14:25 Lipase 10,500/Protease 25,000/Amylase 43,750 (Units) Dr Cap FEEDTUBE PRN PRN For Clogged Feeding Tube Dextrose 50 ml 01/27/21 07:24 Dextrose 50% In Water (25gm) 50 Ml Syringe IV Q30MIN PRN Hypoglycemia Protocol Fentanyl 50 mcg 01/22/21 22:39 02/10/21 13:46 Fentanyl 100 Mcg/2 Ml Inj IV 50 mcg Q10MIN PRN Administration ANALGESIA Heparin Sodium (Porcine) 2,000 unit 02/11/21 09:38 Heparin 10,000 Units/10 Ml Vial IV SAGRARIO PRN hemodialysis Hydrophilic Ointment 1 applic 01/22/21 22:39 02/17/21 11:19 Lip Therapy Vaseline TP 1 applic Q2HR PRN Administration Dry Lips Fentanyl Citrate 2,000 mcg in 100 mls @ 6.124 mls/hr 01/22/21 23:00 02/17/21 11:18 Fentanyl Drip Premix IV 2 mcg/kg/hr TITR CECE 12.247 mls/hr Administration Protocol 1 MCG/KG/HR Propofol 1,000 mg in 100 mls @ 3.674 mls/hr 01/22/21 23:45 02/17/21 05:51 Diprivan 10 Mg/Ml IV 10 mcg/kg/min TITR CECE 7.348 mls/hr Titration Protocol 5 MCG/KG/MIN Norepinephrine 4 mg in 250 mls @ 7.5 mls/hr 01/28/21 14:00 02/08/21 06:08 Levophed Drip 4 Mg/Ns 250 Ml IV 0 mcg/min TITR CECE 0 mls/hr Titration Protocol 2 MCG/MIN Dexmedetomidine HCl 1,000 mcg/ 260 mls @ 6.368 mls/hr 01/30/21 20:00 02/17/21 10:38 Sodium Chloride IV 1.4 mcg/kg/hr TITRATE CECE 44.579 mls/hr Administration Protocol 0.2 MCG/KG/HR Sodium Chloride 100 mls @ 999 mls/hr 02/15/21 16:45 Nacl 0.9% IV SAGRARIO PRN Hypotension Multi-Ingred Cream/Lotion/Oil/Oint 1 applic 01/22/21 22:39 02/01/21 09:33 Mineral Oil/Petrolatum, White Ophth Oint 3.5 Gm OU 1 applic Q4HR PRN Administration Dry Eye(s) Ondansetron HCl 4 mg 01/23/21 02:17 Ondansetron 4 Mg/2 Ml Inj IV Q8H PRN Nausea And Vomiting Pantoprazole Sodium 40 mg 02/15/21 10:00 02/17/21 11:18 Pantoprazole 40 Mg Inj IV 40 mg DAILY CECE Administration Senna/Docusate Sodium 2 tab 02/17/21 11:00 Sennosides/Docusate Sodium 8.6/50 Mg Tab PO TID CECE Simple Syrup 15 ml 01/26/21 14:25 Simple Syrup 15 Ml FEEDTUBE PRN PRN Hypoglycemia Simple Syrup 30 ml 01/26/21 14:25 Simple Syrup 15 Ml FEEDTUBE PRN PRN Hypoglycemia Sodium Bicarbonate 325 mg 01/26/21 14:25 Sodium Bicarbonate 325 Mg Tab FEEDTUBE PRN PRN For Clogged Feeding Tube
[2021-02-17] MEDS: SENNOSIDES/DOCUSATE SODIUM 8.6/50 MG TAB PO SCH ×2 (15:29→19:56)
--- NOTE | 2021-02-17 17:13 | Progress Note ---
<CARMENBRENDALourdes - Last Filed: 02/17/21 17:18> Assessment and Plan Assessment and plan: This is a 60-year-old male with diabetes mellitus, hypertension, hyperlipidemia, chronic renal insufficiency who was admitted on 01/23 as a COVID-19 PUI with Sepsis, COVID-19 pneumonia, coag negative staph bacteremia, acute hypoxic r espiratory failure, and acute kidney injury. Sepsis COVID-19 pneumonia Coag-neg Staph bacteremia Acute hypoxic respiratory failure Acute kidney injury, HD initiated 02/03 Anemia Hyponatremia Hypochloremia Diabetes mellitus Hypertension Hyperlipidemia Chronic renal insufficiency Elevated D-dimer -CCM, nephrology, infectious disease, GI consulted, appreciate recommendations -s/p Antibiotic therapy, remdesivir -COVID-19 PCR positive, Pneumonia on CXR -Steroid therapy -Mechanical ventilation, wean as tolerated -VAP bundle -HD per nephrology -S/p 4 units PRBC during stay -Trend BMP, CBC, COVID-19 inflammatory markers -Bilateral lower extremity and upper extremity Doppler ultrasound negative for DVT/SVT -Therapeutic Lovenox discontinued on 02/13 due to positive occult -SSI and Long-acting insulin -Accu-Cheks every 6 while on tube feedings -Hold home antihypertensive regimen for now as he is still needing vasopressor support -Blood pressure monitoring per protocol -S/p NaHCO3 gtt DVT/GI prophylaxis: SCDs to bilateral lower extremities while in bed, PPI, avoid chemical anticoagulation in setting of GI bleed Dispo: ICU The high probability of a clinically significant, sudden or life threatening deterioration of the [multi] system(s) required my full and direct attention, intervention and personal management. The aggregate critical care time was [32] minutes. This time is in addition to time spent performing reported procedures but includes the following: [x] Data Review and interpretation [x] Patient assessment and monitoring of vital signs [x] Documentation [x] Medication orders and management History Interval history: This is a 60-year-old male with diabetes mellitus, hypertension, hyperlipidemia, chronic renal insufficiency presents to the emergency department on 01/23 with shortness of breath, fevers chills, loss of smell and taste and body aches for the past 3 days via EMS. Per EMS patient's oxygen saturation on room air was 50% and after being placed on nonrebreather it increased 75%. Upon arrival to the emergency department patient was being bagged by EMS. In the emergency room patient was intubated due to severe hypoxia, increased work of breathing and lethargy. Patient was sedated on propofol and fentanyl. Patient presented with fever, tachycardia, tachypnea and acute hypoxic respiratory failure with PNA on CXR meeting Sepsis criteria. Lab work in the emergency department revealed hyponatremia, hypokalemia, hypochloremia, elevated CR/BUN and CXR showed bilateral pneumonia. Patient was admitted to the hospital service as a COVID-19 PUI with consults to infectious disease, nephrology and critical care medicine. 01/24/2021: Patient is intubated and sedated, patient is positive for COVID-19 infection. ID was consulted and put on dexamethasone and remdesivir. Patient has DEISI and nephrology is following. Creatinine stable, patient is urinating. Discussed with nephrology and he is okay with remdesivir. Pulmonary critical care is following for his vent setting. PEEP of 8 and FiO2 of 85%. Patient was alert and off sedatives. 01/25/2021; patient is intubated and on mechanical ventilation. Continue with treatment of Covid. Nephrology and ID is following. Pulmonary is following for vent management 01/26: Remains on mechanical ventilation and [facility] increased his PEEP. [facility] has ordered Precedex for sedation. Possibly need to prone this p.m. No acute events reported overnight. This morning his D-dimer is greater than 10,000 and we have started him on Lovenox 120 mg daily. Nutrition has been consulted for initiation of tube feedings. Patient remains sedated on propofol 40 and fentanyl for the time my examination this morning. 01/27: Continue Lovenox, remdesivir and empiric antibiotics. Patient had a T-max of 101 overnight. The time of examination patient is on CMV 500/18/14/0.61. Kidney function slightly worsened. Sedated on fentanyl ground-level fall and Precedex. Nephrology has increased IV fluids to 100 ml/hr. Continue to trend BMP and CBC. Sedation vacation attempt by RN this AM. 01/28: Patient completed antibiotics today [facility] will paralyze patient and increase sedation. PICC line ordered for possible vasopressor therapy need. Patient's D-dimer remains greater than 10,000 and he still has hyperchloremia. Patient's kidney function has improved today. May need to prone the patient if no improvement in oxygenation is noted in the next 24 hours. The time of my examination patient is sedated with propofol, fentanyl and Precedex and is on assist control 500/18/16/0.80 hypoxic on ABG on 60% FiO2. 01/29: Patient was started on Nimbex yesterday and his ABG this morning showed respiratory acidosis with hypercapnia and his respiratory rate was increased. We will obtain a repeat ABG this afternoon. This morning patient is hypernatremic, hyperkalemic and hyperchloremic. His potassium has been corrected with the management and will obtain repeat BMP tomorrow. His kidney functions have remained stable and we will await nephrology's input. No acute events reported overnight. This morning the time my examination patient sedated with propofol, Precedex and fentanyl and paralyzed with Nimbex. He is on assist control 500/24/16 0.80. 01/30: This morning patient is hypokalemic again and was given Kayexalate. Patient has hypernatremia and hyper chloremia and his renal function is slightly worse after receiving Lasix yesterday. His D-dimer remains greater than 10,000 and he is still on a paralytic. Patient is sedated on Precedex, fentanyl, pr opofol. Mechanical ventilation settings seven-point 2/69/61/28. [facility] has decided to continue paralytics for 48 more hours and will attempt proning the patient. Increased free water flushes 300 cc every 4 hours. Patient states has restarted his antibiotics cefepime and vancomycin and recultured. 01/31/21 Hyperkalemia, Treated 02/01/21 Hyperkalemia, Treated 02/02: Patient's kidney function continues to worsen and a stat BMP this morning shows BUN/creatinine 20/6.1 and he remains hypocalcemic and hypernatremic, hypokalemic and hypochloremic. Patient received 2 g of calcium gluconate and Kayexalate and his repeat potassium was 4.3 this afternoon. He remains antibiotic therapy and steroids. Nephrology has placed the patient on bicarb drip given metabolic acidosis and has decided to hold off hemodialysis till tomorrow.The time my examination patient is sedated on fentanyl, Precedex and on assist control 500/20/12/0.70. s/p paralytic. 02/03: Today patient's ABG shows respiratory acidosis however it is improving, hypernatremia, hyperchloremia, metabolic acidosis on BMP, worsening kidney function BUN/creatinine 130/9.2 with hyperphosphatemia. Patient received a Vas- Cath to his right IJ for initiation of dialysis. At the time of my examination patient remains sedated on fentanyl, propofol and Precedex with vasopressor support with Levophed at 2. 02/04: At the time of examination patient was on assist control tidal volume 500, rate 40, PEEP of 12, FiO2 85%. Patient had a T-max of 100.9 and infectious disease has stopped his vancomycin given negative MRSA. This afternoon patient respiked his temperature and was pancultured again. Patient was started on hemodialysis yesterday and will receive HD again today. Patient is sedated on Precedex, propofol, fentanyl and remains on Levophed. He is on assist control tidal volume 500, rate of 30, PEEP of 12, FiO2 of 85%. Patient still has some respiratory acidosis however his hypernatremia and hyperchloremia have improved and his metabolic acidosis has resolved. Patient will receive hemodialysis today 02/05: Patient continues to have low-grade fever temp this morning time examination he was on assist control tidal volume 500, and sedated on propofol/fentanyl/Precedex and is on Levophed. Hemodialysis per nephrology. Antibiotics per ID. Patient's blood culture from 02/04 grew gram-positive cocci in clusters in 1/2 bottles and he was started on vancomycin. 02/06: Patients ABG showed respiratory acidosis and the tracings were changed however a repeat ABG showed showed acidosis.[facility] will start a bicarb drip after giving 2 amps of bicarb push. Yesterday patient blood cultures grew gram- positive cocci and he was started on vancomycin. At the time my examination patient was on assist control tidal volume 550, rate 34, PEEP 16, FiO2 90% and sedated on fentanyl, Precedex, propofol elevated pressure support with Levophed. Bilateral lower extremity Doppler ultrasounds done yesterday showed no evidence of DVT/SVT. 02/07/2021; patient is still on the vent with PEEP of 16 and FiO2 of 90%, sedated with fentanyl Precedex and propofol. Patient still requiring Levophed. Patient was sedated yesterday and was given bicarb push. Blood culture grew gram-positive cocci in clusters and he is on vancomycin, will follow identifica tion. 02/08/2021;patient is still on the vent with PEEP of 16 and FiO2 of 90%, sedated with fentanyl Precedex and propofol. Patient still requiring Levophed. Patient was sedated yesterday and was given bicarb push. Blood culture grew gram- positive cocci in clusters and he is on vancomycin, will follow identification. Patient is currently on dialysis. Patient is anemic transfuse if hemoglobin is below 7. 02/09: This morning patient has slight hypokalemia, hypochorlemia, hyponatremia and metabolic alkalosis. [facility] will continue bicarb gtt given that the patient does not have HD access at this time. We will replete the potassium and recheck BMP in the AM. We will type and cross in anticipation of PRBC transfusion. This morning he is sedated on Ativan, fentayl, and precedex. Will obtain a t riglyceride level today in hopes to resume propofol. Patient is alkalotic and BMP however we will continue with bicarb drip per [facility] given that the patient does not have any access for hemodialysis. Anticipate replacing hemodialysis catheter tomorrow or Tuesday. The time my examination he is on AC TV 550, Rate 34, PeeP 16, FiO2 .65. 02/10: A.m. labs still pending, [facility] plans to replace HD catheter tomorrow as the patient is still febrile however his fever curve is trending down, remains on a bicarb drip and on vancomycin. Today at the time my examination patient was sedated on Precedex, Ativan and fentanyl and he is on assist control tidal 11/04/1951, rate 34, PEEP 16, FiO2 65%. Overnight patient was hypotensive and received 1 dose of midodrine. 02/11: Patient is still having low-grade temperatures that we will obtain a bilateral lower upper extremity venous Doppler ultrasound given that his repeat cultures have been negative so far. Patient received a Vas-Cath today for hemodialysis. The time examination patient is on assist control tidal volume 550, rate of 34, PEEP of 16 and FiO2 of 75%. Patient was hypokalemic and anemic yesterday which were both repleted with potassium and 1 unit PRBC. 02/12: 02/12: Patient had a 12-second run of V. tach today, his potassium and magnesium were low which was repleted. Renal adjusted potassium bath. We will obtain a triglyceride level in hopes to restarting to prevent as needed. This morning at the time my examination patient was sedated on fentanyl, Ativan and Precedex and remained on a bicarb drip. He was on assist control tidal volume 550, rate 34, PEEP 16, FiO2 85%. We will obtain a occult stool given no evident source of bleeding and need for transfusion. Anemia possibly due to hemodialysis. 02/13: Patient's T-max was 100.7, remains on fentanyl, Ativan, Precedex and bicarb drip this morning at some examination on assist control tidal volume 550, rate 34, PEEP 16 and FiO2 85%. On the labs this morning is slightly hypokalemic and remains metabolic alkalotic on BMP. His occult was positive. His Lovenox and consult GI. Patient received hemodialysis today. 02/14: cont PPI, GI recommended to scope now, monitor clinically, tolerating TF, remains intubated. Hb 6.9 today - transfuse another unit. very poor prognosis. 02/15: H&H appears to be stable following 1 unit of transfusion yesterday. Continue to hold heparin and aspirin products. Continue to monitor clinically. Poor prognosis. Wean off from vent as tolerated. 02/16: Infectious disease has signed off, his Ativan drip was discontinued and to prevent drip will be started when patient needs it. T-max 100.6 yesterday afternoon. He received hemodialysis today and at the time my examination was still on mechanical ventilation assist control tidal volume 550, rate 34, PEEP 16 on 70% FiO2. Patient was sedated on fentanyl dexamethasone and Ativan. No acute events reported overnight. 02/17: This morning patient was scheduled to get 2 units PRBC however his repeat H/H after 1 unit PRBC was 7.6/22.8 and the width of the second unit PRBC. This morning patient was sedated on fentanyl, propofol, Precedex and on assist control tolerated by 50, rate 34, PEEP of 16, FiO2 35%. Wound care was consulted today for his upper lip wound. Nephrology continues to withhold dialysis. No acute events reported overnight. Dr. Hoang was unable to cont act family for updates. Hospitalist Physical - Constitutional Vitals: Temp Pulse Resp BP Pulse Ox 98.8 F 84 34 H 93/57 75 L 02/17/21 16:47 02/17/21 16:30 02/17/21 16:47 02/17/21 16:47 02/17/21 16:47 General appearance: Present: no acute distress, well-nourished, other (Sedated on mechanical ventilation) - EENT Eyes: Present: PERRL ENT: poor dentition - Neck Neck: Absent: masses or JVD - Respiratory Respiratory effort: normal Respiratory: bilateral: diminished - Cardiovascular Rhythm: regular Heart Sounds: Present: S1 & S2. Absent: systolic murmur, diastolic murmur - Extremities Extremities: no ischemia, pulses intact, pulses symmetrical, normal temperature, normal color Extremity abnormal: edema - Peripheral Assessment Generalized Edema Type: Pitting Edema Degree: 3+ Capillary Refill: < 3 seconds Skin Temperature: Warm Peripheral Pulses: within normal limits - Abdominal General gastrointestinal: soft, non-tender, non-distended, normal bowel sounds - Integumentary Integumentary: Present: warm, dry - Psychiatric Psychiatric: other (Sedated) - Neurologic Neurologic: other (Sedated) - Allied Health Allied health notes reviewed: nursing, RT, case management HEART Score - HEART Score Risk factors: 1-2 risk factors Troponin: < normal limit - Critical Actions Critical Actions: 0-3 pts:0.9-1.7%risk of adverse cardiac event.Candidate for discharge Results - Labs CBC & Chem 7: 02/17/21 12:25 02/17/21 04:14 Labs: Laboratory Last Values WBC 8.0 K/mm3 (4.5-11.0) 02/17/21 04:14 RBC 2.14 M/mm3 (3.65-5.03) L 02/17/21 04:14 Hgb 7.6 gm/dl (11.8-15.2) L 02/17/21 12:25 Hct 22.8 % (35.5-45.6) L 02/17/21 12:25 MCV 98 fl (84-94) H 02/17/21 04:14 MCH 32 pg (28-32) 02/17/21 04:14 MCHC 33 % (32-34) 02/17/21 04:14 RDW 15.8 % (13.2-15.2) H 02/17/21 04:14 Plt Count 213 K/mm3 (140-440) 02/17/21 04:14 Lymph % (Auto) 11.0 % (13.4-35.0) L 02/15/21 05:00 Placer % (Auto) 4.2 % (0.0-7.3) 02/15/21 05:00 Eos % (Auto) 1.2 % (0.0-4.3) 02/15/21 05:00 Baso % (Auto) 0.6 % (0.0-1.8) 02/15/21 05:00 Lymph # (Auto) 1.1 K/mm3 (1.2-5.4) L 02/15/21 05:00 Placer # (Auto) 0.4 K/mm3 (0.0-0.8) 02/15/21 05:00 Eos # (Auto) 0.1 K/mm3 (0.0-0.4) 02/15/21 05:00 Baso # (Auto) 0.1 K/mm3 (0.0-0.1) 02/15/21 05:00 Add Manual Diff Complete 02/16/21 Unknown Total Counted 100 02/16/21 Unknown Seg Neutrophils % 83.0 % (40.0-70.0) H 02/15/21 05:00 Seg Neuts % (Manual) 85.0 % (40.0-70.0) H 02/16/21 Unknown Band Neutrophils % 2.0 % 02/16/21 Unknown Lymphocytes % (Manual) 6.0 % (13.4-35.0) L 02/16/21 Unknown Reactive Lymphs % (Man) 1.0 % 01/27/21 05:29 Monocytes % (Manual) 5.0 % (0.0-7.3) 02/16/21 Unknown Eosinophils % (Manual) 1.0 % (0.0-4.3) 02/16/21 Unknown Basophils % (Manual) 1.0 % (0.0-1.8) 02/06/21 Unknown Metamyelocytes % 1.0 % 02/16/21 Unknown Nucleated RBC % 4.0 % (0.0-0.9) H 02/16/21 Unknown Seg Neutrophils # 8.6 K/mm3 (1.8-7.7) H 02/15/21 05:00 Seg Neutrophils # Man 7.6 K/mm3 (1.8-7.7) 02/16/21 Unknown Band Neutrophils # 0.2 K/mm3 02/16/21 Unknown Lymphocytes # (Manual) 0.5 K/mm3 (1.2-5.4) L 02/16/21 Unknown Abs React Lymphs (Man) 0.0 K/mm3 02/16/21 Unknown Monocytes # (Manual) 0.4 K/mm3 (0.0-0.8) 02/16/21 Unknown Eosinophils # (Manual) 0.1 K/mm3 (0.0-0.4) 02/16/21 Unknown Basophils # (Manual) 0.0 K/mm3 (0.0-0.1) 02/16/21 Unknown Metamyelocytes # 0.1 K/mm3 02/16/21 Unknown Myelocytes # 0.0 K/mm3 02/16/21 Unknown Promyelocytes # 0.0 K/mm3 02/16/21 Unknown Blast Cells # 0.0 K/mm3 02/16/21 Unknown WBC Morphology Not Reportable 02/16/21 Unknown Hypersegmented Neuts Not Reportable 02/16/21 Unknown Hyposegmented Neuts Not Reportable 02/16/21 Unknown Hypogranular Neuts Not Reportable 02/16/21 Unknown Smudge Cells Not Reportable 02/16/21 Unknown Toxic Granulation Not Reportable 02/16/21 Unknown Toxic Vacuolation Not Reportable 02/16/21 Unknown Dohle Bodies Not Reportable 02/16/21 Unknown Pelger-Huet Anomaly Not Reportable 02/16/21 Unknown Fátima Rods Not Reportable 02/16/21 Unknown Platelet Estimate Consistent w auto 02/16/21 Unknown Clumped Platelets Not Reportable 02/16/21 Unknown Plt Clumps, EDTA Not Reportable 02/16/21 Unknown Large Platelets Not Reportable 02/16/21 Unknown Giant Platelets Not Reportable 02/16/21 Unknown Platelet Satelliting Not Reportable 02/16/21 Unknown Plt Morphology Comment Not Reportable 02/16/21 Unknown RBC Morphology Not Reportable 02/16/21 Unknown Dimorphic RBCs Not Reportable 02/16/21 Unknown Polychromasia Not Reportable 02/16/21 Unknown Hypochromasia Not Reportable 02/16/21 Unknown Poikilocytosis Not Reportable 02/16/21 Unknown Anisocytosis 1+ 02/16/21 Unknown Microcytosis Not Reportable 02/16/21 Unknown Macrocytosis Not Reportable 02/16/21 Unknown Spherocytes Not Reportable 02/16/21 Unknown Pappenheimer Bodies Not Reportable 02/16/21 Unknown Sickle Cells Not Reportable 02/16/21 Unknown Target Cells Not Reportable 02/16/21 Unknown Tear Drop Cells Not Reportable 02/16/21 Unknown Ovalocytes Not Reportable 02/16/21 Unknown Helmet Cells Not Reportable 02/16/21 Unknown [place] Bodies Not Reportable 02/16/21 Unknown [place] Rings Not Reportable 02/16/21 Unknown Orla Cells Not Reportable 02/16/21 Unknown Bite Cells Not Reportable 02/16/21 Unknown Crenated Cell Not Reportable 02/16/21 Unknown Elliptocytes Not Reportable 02/16/21 Unknown Acanthocytes (Spur) Not Reportable 02/16/21 Unknown Rouleaux Not Reportable 02/16/21 Unknown Hemoglobin C Crystals Not Reportable 02/16/21 Unknown Schistocytes Not Reportable 02/16/21 Unknown Malaria parasites Not Reportable 02/16/21 Unknown Aquiles Bodies Not Reportable 02/16/21 Unknown Hem Pathologist Commnt No 02/16/21 Unknown PT 14.9 Sec. (12.2-14.9) 02/11/21 08:27 INR 1.17 (0.87-1.13) H 02/11/21 08:27 D-Dimer 3183.35 ng/mlDDU (0-234) H 02/17/21 04:14 ABG pH 7.293 (7.320-7.450) L 02/17/21 04:00 POC ABG pCO2 59.5 mmHg (32.0-48.0) H 02/17/21 04:00 ABG pCO2 51.2 mm Hg 02/12/21 04:41 POC ABG pO2 68.1 mmHg (83-108) L 02/17/21 04:00 ABG pO2 69.0 mm Hg (80.0-90.0) L 02/12/21 04:41 POC ABG HCO3 28.2 02/17/21 04:00 ABG HCO3 32.5 mmol/L (20.0-26.0) H 02/12/21 04:41 ABG O2 Saturation 91.2 (0-100) 02/17/21 04:00 ABG O2 Content 4.3 (0.0-44) 02/12/21 04:41 POC ABG Base Excess 1.2 02/17/21 04:00 ABG Base Excess 7.7 mmol/L (-2.0-3.0) H 02/12/21 04:41 ABG Hemoglobin 7.7 (12.0-17.5) L 02/17/21 04:00 ABG Oxyhemoglobin 88.8 (94-98) L 02/15/21 05:00 ABG Carboxyhemoglobin 2.4 % (0.0-5.0) 02/12/21 04:41 ABG Methemoglobin 0.3 (0.0-1.5) 02/15/21 05:00 ABG Sodium 133.4 mmol/L (136.0-145.0) L 02/17/21 04:00 ABG Potassium 4.3 mmol/L (3.40-4.50) 02/17/21 04:00 ABG Chloride 101.0 mmol/L (98-107) 02/17/21 04:00 ABG Glucose 143 mg/dL (65-95) H 02/17/21 04:00 Oxyhemoglobin 94.7 % (95.0-99.0) L 02/12/21 04:41 Carboxyhemoglobin 1.6 (0.5-1.5) H 02/15/21 05:00 FiO2 75 % 02/12/21 04:41 FiO2 % 75 02/17/21 04:00 Sodium 136 mmol/L (137-145) L 02/17/21 04:14 Potassium 4.4 mmol/L (3.6-5.0) 02/17/21 04:14 Chloride 97.3 mmol/L (98-107) L 02/17/21 04:14 Carbon Dioxide 29 mmol/L (22-30) 02/17/21 04:14 Anion Gap 14 mmol/L 02/17/21 04:14 BUN 49 mg/dL (9-20) H 02/17/21 04:14 Creatinine 5.3 mg/dL (0.8-1.3) H 02/17/21 04:14 Estimated GFR 13 ml/min 02/17/21 04:14 BUN/Creatinine Ratio 9 % 02/17/21 04:14 Glucose 139 mg/dL (75-100) H 02/17/21 04:14 POC Glucose 114 mg/dL (70-105) H 02/17/21 12:35 Hemoglobin A1c 6.3 % (4-6) H 02/02/21 16:00 Lactic Acid 1.90 mmol/L (0.7-2.0) 01/24/21 14:38 Calcium 8.7 mg/dL (8.4-10.2) 02/17/21 04:14 Phosphorus 3.90 mg/dL (2.5-4.5) 02/13/21 06:40 Magnesium 1.70 mg/dL (1.7-2.3) 02/16/21 17:09 Ferritin 894.0 ng/mL (30.0-300.0) H 02/17/21 04:14 Total Bilirubin 1.50 mg/dL (0.1-1.2) H 01/26/21 05:47 AST 37 units/L (5-40) 01/26/21 05:47 ALT 29 units/L (7-56) 01/26/21 05:47 Alkaline Phosphatase 70 units/L (35-129) 01/26/21 05:47 Lactate Dehydrogenase 399 units/L (91-180) H 02/17/21 04:14 C-Reactive Protein 22.10 mg/dL (0.00-1.30) H 02/17/21 04:14 Total Protein 7.2 g/dL (6.3-8.2) 01/26/21 05:47 Albumin 2.2 g/dL (3.9-5) L 01/26/21 05:47 Albumin/Globulin Ratio 0.4 % 01/26/21 05:47 Triglycerides 182 mg/dL (2-149) H 02/12/21 10:45 Procalcitonin 18.94 ng/mL (<0.15) 02/16/21 17:09 Arterial Blood Glucose 143 mg/dL (65-95) H 02/17/21 04:00 Arterial Blood Ionized Calcium 4.9 mg/dL (4.6-5.3) 02/17/21 04:00 Urine Color Nehal (Yellow) 01/22/21 22:39 Urine Turbidity Cloudy (Clear) 01/22/21 22:39 Urine pH 5.0 (5.0-7.0) 01/22/21 22:39 Ur Specific Godwin 1.017 (1.003-1.030) 01/22/21 22:39 Urine Protein 100 mg/dl mg/dL (Negative) 01/22/21 22:39 Urine Glucose (UA) Neg mg/dL (Negative) 01/22/21 22:39 Urine Ketones Neg mg/dL (Negative) 01/22/21 22:39 Urine Blood Mod (Negative) 01/22/21 22:39 Urine Nitrite Neg (Negative) 01/22/21 22:39 Urine Bilirubin Neg (Negative) 01/22/21 22:39 Urine Urobilinogen 2.0 mg/dL (<2.0) 01/22/21 22:39 Ur Leukocyte Esterase Mod (Negative) 01/22/21 22:39 Urine WBC (Auto) < 1.0 /HPF (0.0-6.0) 01/22/21 22:39 Urine RBC (Auto) < 1.0 /HPF (0.0-6.0) 01/22/21 22:39 U Epithel Cells (Auto) < 1.0 /HPF (0-13.0) 01/22/21 22:39 Urine Osmolality 416 Mosm/kg 01/30/21 12:15 Urine Total Volume 2300 ml 01/30/21 12:00 Urine Creatinine 53.0 mg/dL (0.1-20.0) H 01/30/21 12:00 Ur Creatinine 24 Hour 1.2 (0.8-2.8) 01/30/21 12:00 Urine Sodium 28 mmol/L 01/22/21 22:39 Nasal Screen MRSA (PCR) Negative (Negative) 02/02/21 13:20 Random Vancomycin 13.7 ug/mL (0-40.0) 02/07/21 10:40 Coronavirus (PCR) Positive (Negative) A 01/23/21 08:41 Hepatitis A IgM Ab Non-reactive (NonReactive) 02/03/21 Unknown Hep Bs Antigen Non-reactive (Negative) 02/03/21 Unknown Hep B Core IgM Ab Non-reactive (NonReactive) 02/03/21 Unknown Hepatitis C Antibody Non-reactive (NonReactive) 02/03/21 Unknown Blood Type B POSITIVE 02/17/21 07:45 Antibody Screen Negative 02/17/21 07:45 Crossmatch See Detail 02/17/21 07:45 Microbiology: Microbiology 02/04/21 16:01 Peripheral/Venous Blood Culture - Final Coag Negative Staphylococcus 02/04/21 16:01 Peripheral/Venous Blood Culture - Final Coag Negative Staphylococcus Black/IV: Voiding Method Incontinent Active Medications - Current Medications Current Medications: Generic Name Dose Route Start Last Admin Trade Name Freq PRN Reason Stop Dose Admin Acetaminophen 650 mg 01/23/21 02:25 02/11/21 18:20 Acetaminophen 650 Mg Rect Supp VT 650 mg Q4H PRN Administration Pain, Mild (1-3) Acetaminophen 650 mg 01/24/21 12:58 02/15/21 18:06 Acetaminophen 325 Mg/10.15 Ml Oral Liqd Unit Dose FEEDTUBE 650 mg Q6H PRN Administration Pain, Mild (1-3) Lipase/Protease/Amylase 1 each 01/26/21 14:25 Lipase 10,500/Protease 25,000/Amylase 43,750 (Units) Dr Cap FEEDTUBE PRN PRN For Clogged Feeding Tube Dextrose 50 ml 01/27/21 07:24 Dextrose 50% In Water (25gm) 50 Ml Syringe IV Q30MIN PRN Hypoglycemia Protocol Fentanyl 50 mcg 01/22/21 22:39 02/10/21 13:46 Fentanyl 100 Mcg/2 Ml Inj IV 50 mcg Q10MIN PRN Administration ANALGESIA Heparin Sodium (Porcine) 2,000 unit 02/11/21 09:38 Heparin 10,000 Units/10 Ml Vial IV SAGRARIO PRN hemodialysis Hydrophilic Ointment 1 applic 01/22/21 22:39 02/17/21 11:19 Lip Therapy Vaseline TP 1 applic Q2HR PRN Administration Dry Lips Fentanyl Citrate 2,000 mcg in 100 mls @ 6.124 mls/hr 01/22/21 23:00 02/17/21 11:18 Fentanyl Drip Premix IV 2 mcg/kg/hr TITR CECE 12.247 mls/hr Administration Protocol 1 MCG/KG/HR Propofol 1,000 mg in 100 mls @ 3.674 mls/hr 01/22/21 23:45 02/17/21 05:51 Diprivan 10 Mg/Ml IV 10 mcg/kg/min TITR CECE 7.348 mls/hr Titration Protocol 5 MCG/KG/MIN Norepinephrine 4 mg in 250 mls @ 7.5 mls/hr 01/28/21 14:00 02/08/21 06:08 Levophed Drip 4 Mg/Ns 250 Ml IV 0 mcg/min TITR CECE 0 mls/hr Titration Protocol 2 MCG/MIN Dexmedetomidine HCl 1,000 mcg/ 260 mls @ 6.368 mls/hr 01/30/21 20:00 02/17/21 16:45 Sodium Chloride IV 1.4 mcg/kg/hr TITRATE CECE 44.579 mls/hr Administration Protocol 0.2 MCG/KG/HR Sodium Chloride 100 mls @ 999 mls/hr 02/15/21 16:45 Nacl 0.9% IV SAGRARIO PRN Hypotension Multi-Ingred Cream/Lotion/Oil/Oint 1 applic 01/22/21 22:39 02/01/21 09:33 Mineral Oil/Petrolatum, White Ophth Oint 3.5 Gm OU 1 applic Q4HR PRN Administration Dry Eye(s) Ondansetron HCl 4 mg 01/23/21 02:17 Ondansetron 4 Mg/2 Ml Inj IV Q8H PRN Nausea And Vomiting Pantoprazole Sodium 40 mg 02/15/21 10:00 02/17/21 11:18 Pantoprazole 40 Mg Inj IV 40 mg DAILY CECE Administration Senna/Docusate Sodium 2 tab 02/17/21 11:00 02/17/21 15:29 Sennosides/Docusate Sodium 8.6/50 Mg Tab PO 2 tab TID CECE Administration Simple Syrup 15 ml 01/26/21 14:25 Simple Syrup 15 Ml FEEDTUBE PRN PRN Hypoglycemia Simple Syrup 30 ml 01/26/21 14:25 Simple Syrup 15 Ml FEEDTUBE PRN PRN Hypoglycemia Sodium Bicarbonate 325 mg 01/26/21 14:25 Sodium Bicarbonate 325 Mg Tab FEEDTUBE PRN PRN For Clogged Feeding Tube Nutrition/Malnutrition Assess - Dietary Evaluation Nutrition/Malnutrition Findings: Nutrition Notes Start: 01/26/21 13:59 Freq: Status: Active Protocol: Document 02/17/21 14:54 CW (Rec: 02/17/21 15:09 CW [id number]) Nutrition Notes Initial or Follow up Reassessment Current Diagnosis Acute Kidney Injury,Diabetes, Sepsis,Hypertension, Respiratory Failure, Hyperlipidemia Other Pertinent Diagnosis on HD, COVID-19 (+), bilat pneu Current Diet TF - Nepro at 36 ml/hr Labs/Tests Na 136 BUN 49 Cr 5.3 BG 139 Pertinent Medications propofol at 3.674 ml/hr (97 kcal) Height 5 ft 8 in Weight 161.4 kg [place] Body Weight (kg) 70.00 BMI 54.1 Weight change and time frame wt stable Weight Status Morbidly Obese Subjective/Other Information F/U for Na labs and TF tolerance. Pt continues to tolerate TF regimen at goal. No recent BW. RN to intitate Rx protocol for constipation. Pt now has pressure ulcer to lips. Percent of energy/protein needs met: 80%/61% Burn Absent Trauma Absent GI Symptoms None Difficulty In Swallowing Skin Integrity/Comment pressure uolcer to lips Current % PO Negligible Minimum of two criteria No physical signs of malnutrition #2 Nutrition Diagnosis Increased nutrient needs ( specify in comment below) Comments: protein Etiology wound healing As Evidenced by Signs and Symptoms pressure wound to lips #1 Nutrition Diagnosis Inadequate oral intake Diagnosis Progress(for reassessment Continues documentation) Is patient on ventilator? Yes Is Patient Ambulatory and/or Out of Bed No REE-(Sullivan-St. Jeor-confined to bed) 2870.220 Kcal/Kg value to use for calculation 12 Approximate Energy Requirements Using 1937 kcal/Kg Calculation Used for Recommendations Kcal/kg Additional Notes Pro needs >1.2g/kg adjBW: > 115g/day for HD needs Fluid needs 500+ total output or per MD Nutrition Intervention Change Diet Order: Increase TF Nutrition Support: Nepro at 46 ml/hr with a free water flush of 125 ml q4h for hyponatremia. Resume flush of 200 ml q4h once hyponatremia resolved. Kcal 1,987 Protein (gm) 89 Fluid (mL) 803 Goal #1 TF tolerance Goal #2 TF to meet at least 75% energy and pro needs Anticipated Discharge Needs: unable to determine at this time Follow-Up By: 02/19/21 Additional Comments F/U for TF tolerance and Na levels <DENNYS HOANG - Last Filed: 02/17/21 23:16> Assessment and Plan Assessment and plan: I saw and evaluated the patient. I agree with the findings and the plan of care as documented in the Nurse Practitioner's~note, with the following corrections and additions. Called family/patient's sister but unable to reach out to her - left a message. Hospitalist Physical - Constitutional Vitals: Temp Pulse Resp BP Pulse Ox 98.9 F 128 H 28 H 113/71 100 02/17/21 19:58 02/17/21 22:34 02/17/21 23:01 02/17/21 23:01 02/17/21 21:30 Results - Labs CBC & Chem 7: 02/17/21 12:25 02/17/21 04:14 Labs: Laboratory Last Values WBC 8.0 K/mm3 (4.5-11.0) 02/17/21 04:14 RBC 2.14 M/mm3 (3.65-5.03) L 02/17/21 04:14 Hgb 7.6 gm/dl (11.8-15.2) L 02/17/21 12:25 Hct 22.8 % (35.5-45.6) L 02/17/21 12:25 MCV 98 fl (84-94) H 02/17/21 04:14 MCH 32 pg (28-32) 02/17/21 04:14 MCHC 33 % (32-34) 02/17/21 04:14 RDW 15.8 % (13.2-15.2) H 02/17/21 04:14 Plt Count 213 K/mm3 (140-440) 02/17/21 04:14 Lymph % (Auto) 11.0 % (13.4-35.0) L 02/15/21 05:00 Placer % (Auto) 4.2 % (0.0-7.3) 02/15/21 05:00 Eos % (Auto) 1.2 % (0.0-4.3) 02/15/21 05:00 Baso % (Auto) 0.6 % (0.0-1.8) 02/15/21 05:00 Lymph # (Auto) 1.1 K/mm3 (1.2-5.4) L 02/15/21 05:00 Placer # (Auto) 0.4 K/mm3 (0.0-0.8) 02/15/21 05:00 Eos # (Auto) 0.1 K/mm3 (0.0-0.4) 02/15/21 05:00 Baso # (Auto) 0.1 K/mm3 (0.0-0.1) 02/15/21 05:00 Add Manual Diff Complete 02/16/21 Unknown Total Counted 100 02/16/21 Unknown Seg Neutrophils % 83.0 % (40.0-70.0) H 02/15/21 05:00 Seg Neuts % (Manual) 85.0 % (40.0-70.0) H 02/16/21 Unknown Band Neutrophils % 2.0 % 02/16/21 Unknown Lymphocytes % (Manual) 6.0 % (13.4-35.0) L 02/16/21 Unknown Reactive Lymphs % (Man) 1.0 % 01/27/21 05:29 Monocytes % (Manual) 5.0 % (0.0-7.3) 02/16/21 Unknown Eosinophils % (Manual) 1.0 % (0.0-4.3) 02/16/21 Unknown Basophils % (Manual) 1.0 % (0.0-1.8) 02/06/21 Unknown Metamyelocytes % 1.0 % 02/16/21 Unknown Nucleated RBC % 4.0 % (0.0-0.9) H 02/16/21 Unknown Seg Neutrophils # 8.6 K/mm3 (1.8-7.7) H 02/15/21 05:00 Seg Neutrophils # Man 7.6 K/mm3 (1.8-7.7) 02/16/21 Unknown Band Neutrophils # 0.2 K/mm3 02/16/21 Unknown Lymphocytes # (Manual) 0.5 K/mm3 (1.2-5.4) L 02/16/21 Unknown Abs React Lymphs (Man) 0.0 K/mm3 02/16/21 Unknown Monocytes # (Manual) 0.4 K/mm3 (0.0-0.8) 02/16/21 Unknown Eosinophils # (Manual) 0.1 K/mm3 (0.0-0.4) 02/16/21 Unknown Basophils # (Manual) 0.0 K/mm3 (0.0-0.1) 02/16/21 Unknown Metamyelocytes # 0.1 K/mm3 02/16/21 Unknown Myelocytes # 0.0 K/mm3 02/16/21 Unknown Promyelocytes # 0.0 K/mm3 02/16/21 Unknown Blast Cells # 0.0 K/mm3 02/16/21 Unknown WBC Morphology Not Reportable 02/16/21 Unknown Hypersegmented Neuts Not Reportable 02/16/21 Unknown Hyposegmented Neuts Not Reportable 02/16/21 Unknown Hypogranular Neuts Not Reportable 02/16/21 Unknown Smudge Cells Not Reportable 02/16/21 Unknown Toxic Granulation Not Reportable 02/16/21 Unknown Toxic Vacuolation Not Reportable 02/16/21 Unknown Dohle Bodies Not Reportable 02/16/21 Unknown Pelger-Huet Anomaly Not Reportable 02/16/21 Unknown Fátima Rods Not Reportable 02/16/21 Unknown Platelet Estimate Consistent w auto 02/16/21 Unknown Clumped Platelets Not Reportable 02/16/21 Unknown Plt Clumps, EDTA Not Reportable 02/16/21 Unknown Large Platelets Not Reportable 02/16/21 Unknown Giant Platelets Not Reportable 02/16/21 Unknown Platelet Satelliting Not Reportable 02/16/21 Unknown Plt Morphology Comment Not Reportable 02/16/21 Unknown RBC Morphology Not Reportable 02/16/21 Unknown Dimorphic RBCs Not Reportable 02/16/21 Unknown Polychromasia Not Reportable 02/16/21 Unknown Hypochromasia Not Reportable 02/16/21 Unknown Poikilocytosis Not Reportable 02/16/21 Unknown Anisocytosis 1+ 02/16/21 Unknown Microcytosis Not Reportable 02/16/21 Unknown Macrocytosis Not Reportable 02/16/21 Unknown Spherocytes Not Reportable 02/16/21 Unknown Pappenheimer Bodies Not Reportable 02/16/21 Unknown Sickle Cells Not Reportable 02/16/21 Unknown Target Cells Not Reportable 02/16/21 Unknown Tear Drop Cells Not Reportable 02/16/21 Unknown Ovalocytes Not Reportable 02/16/21 Unknown Helmet Cells Not Reportable 02/16/21 Unknown [place] Bodies Not Reportable 02/16/21 Unknown [place] Rings Not Reportable 02/16/21 Unknown Orla Cells Not Reportable 02/16/21 Unknown Bite Cells Not Reportable 02/16/21 Unknown Crenated Cell Not Reportable 02/16/21 Unknown Elliptocytes Not Reportable 02/16/21 Unknown Acanthocytes (Spur) Not Reportable 02/16/21 Unknown Rouleaux Not Reportable 02/16/21 Unknown Hemoglobin C Crystals Not Reportable 02/16/21 Unknown Schistocytes Not Reportable 02/16/21 Unknown Malaria parasites Not Reportable 02/16/21 Unknown Aquiles Bodies Not Reportable 02/16/21 Unknown Hem Pathologist Commnt No 02/16/21 Unknown PT 14.9 Sec. (12.2-14.9) 02/11/21 08:27 INR 1.17 (0.87-1.13) H 02/11/21 08:27 D-Dimer 3183.35 ng/mlDDU (0-234) H 02/17/21 04:14 ABG pH 7.293 (7.320-7.450) L 02/17/21 04:00 POC ABG pCO2 59.5 mmHg (32.0-48.0) H 02/17/21 04:00 ABG pCO2 51.2 mm Hg 02/12/21 04:41 POC ABG pO2 68.1 mmHg (83-108) L 02/17/21 04:00 ABG pO2 69.0 mm Hg (80.0-90.0) L 02/12/21 04:41 POC ABG HCO3 28.2 02/17/21 04:00 ABG HCO3 32.5 mmol/L (20.0-26.0) H 02/12/21 04:41 ABG O2 Saturation 91.2 (0-100) 02/17/21 04:00 ABG O2 Content 4.3 (0.0-44) 02/12/21 04:41 POC ABG Base Excess 1.2 02/17/21 04:00 ABG Base Excess 7.7 mmol/L (-2.0-3.0) H 02/12/21 04:41 ABG Hemoglobin 7.7 (12.0-17.5) L 02/17/21 04:00 ABG Oxyhemoglobin 88.8 (94-98) L 02/15/21 05:00 ABG Carboxyhemoglobin 2.4 % (0.0-5.0) 02/12/21 04:41 ABG Methemoglobin 0.3 (0.0-1.5) 02/15/21 05:00 ABG Sodium 133.4 mmol/L (136.0-145.0) L 02/17/21 04:00 ABG Potassium 4.3 mmol/L (3.40-4.50) 02/17/21 04:00 ABG Chloride 101.0 mmol/L (98-107) 02/17/21 04:00 ABG Glucose 143 mg/dL (65-95) H 02/17/21 04:00 Oxyhemoglobin 94.7 % (95.0-99.0) L 02/12/21 04:41 Carboxyhemoglobin 1.6 (0.5-1.5) H 02/15/21 05:00 FiO2 75 % 02/12/21 04:41 FiO2 % 75 02/17/21 04:00 Sodium 136 mmol/L (137-145) L 02/17/21 04:14 Potassium 4.4 mmol/L (3.6-5.0) 02/17/21 04:14 Chloride 97.3 mmol/L (98-107) L 02/17/21 04:14 Carbon Dioxide 29 mmol/L (22-30) 02/17/21 04:14 Anion Gap 14 mmol/L 02/17/21 04:14 BUN 49 mg/dL (9-20) H 02/17/21 04:14 Creatinine 5.3 mg/dL (0.8-1.3) H 02/17/21 04:14 Estimated GFR 13 ml/min 02/17/21 04:14 BUN/Creatinine Ratio 9 % 02/17/21 04:14 Glucose 139 mg/dL (75-100) H 02/17/21 04:14 POC Glucose 128 mg/dL (70-105) H 02/17/21 17:56 Hemoglobin A1c 6.3 % (4-6) H 02/02/21 16:00 Lactic Acid 1.90 mmol/L (0.7-2.0) 01/24/21 14:38 Calcium 8.7 mg/dL (8.4-10.2) 02/17/21 04:14 Phosphorus 3.90 mg/dL (2.5-4.5) 02/13/21 06:40 Magnesium 1.70 mg/dL (1.7-2.3) 02/16/21 17:09 Ferritin 894.0 ng/mL (30.0-300.0) H 02/17/21 04:14 Total Bilirubin 1.50 mg/dL (0.1-1.2) H 01/26/21 05:47 AST 37 units/L (5-40) 01/26/21 05:47 ALT 29 units/L (7-56) 01/26/21 05:47 Alkaline Phosphatase 70 units/L (35-129) 01/26/21 05:47 Lactate Dehydrogenase 399 units/L (91-180) H 02/17/21 04:14 C-Reactive Protein 22.10 mg/dL (0.00-1.30) H 02/17/21 04:14 Total Protein 7.2 g/dL (6.3-8.2) 01/26/21 05:47 Albumin 2.2 g/dL (3.9-5) L 01/26/21 05:47 Albumin/Globulin Ratio 0.4 % 01/26/21 05:47 Triglycerides 182 mg/dL (2-149) H 02/12/21 10:45 Procalcitonin 18.94 ng/mL (<0.15) 02/16/21 17:09 Arterial Blood Glucose 143 mg/dL (65-95) H 02/17/21 04:00 Arterial Blood Ionized Calcium 4.9 mg/dL (4.6-5.3) 02/17/21 04:00 Urine Color Nehal (Yellow) 01/22/21 22:39 Urine Turbidity Cloudy (Clear) 01/22/21 22:39 Urine pH 5.0 (5.0-7.0) 01/22/21 22:39 Ur Specific Godwin 1.017 (1.003-1.030) 01/22/21 22:39 Urine Protein 100 mg/dl mg/dL (Negative) 01/22/21 22:39 Urine Glucose (UA) Neg mg/dL (Negative) 01/22/21 22:39 Urine Ketones Neg mg/dL (Negative) 01/22/21 22:39 Urine Blood Mod (Negative) 01/22/21 22:39 Urine Nitrite Neg (Negative) 01/22/21 22:39 Urine Bilirubin Neg (Negative) 01/22/21 22:39 Urine Urobilinogen 2.0 mg/dL (<2.0) 01/22/21 22:39 Ur Leukocyte Esterase Mod (Negative) 01/22/21 22:39 Urine WBC (Auto) < 1.0 /HPF (0.0-6.0) 01/22/21 22:39 Urine RBC (Auto) < 1.0 /HPF (0.0-6.0) 01/22/21 22:39 U Epithel Cells (Auto) < 1.0 /HPF (0-13.0) 01/22/21 22:39 Urine Osmolality 416 Mosm/kg 01/30/21 12:15 Urine Total Volume 2300 ml 01/30/21 12:00 Urine Creatinine 53.0 mg/dL (0.1-20.0) H 01/30/21 12:00 Ur Creatinine 24 Hour 1.2 (0.8-2.8) 01/30/21 12:00 Urine Sodium 28 mmol/L 01/22/21 22:39 Nasal Screen MRSA (PCR) Negative (Negative) 02/02/21 13:20 Random Vancomycin 13.7 ug/mL (0-40.0) 02/07/21 10:40 Coronavirus (PCR) Positive (Negative) A 01/23/21 08:41 Hepatitis A IgM Ab Non-reactive (NonReactive) 02/03/21 Unknown Hep Bs Antigen Non-reactive (Negative) 02/03/21 Unknown Hep B Core IgM Ab Non-reactive (NonReactive) 02/03/21 Unknown Hepatitis C Antibody Non-reactive (NonReactive) 02/03/21 Unknown Blood Type B POSITIVE 02/17/21 07:45 Antibody Screen Negative 02/17/21 07:45 Crossmatch See Detail 02/17/21 07:45 Black/IV: Voiding Method Incontinent Active Medications - Current Medications Current Medications: Generic Name Dose Route Start Last Admin Trade Name Freq PRN Reason Stop Dose Admin Acetaminophen 650 mg 01/23/21 02:25 02/11/21 18:20 Acetaminophen 650 Mg Rect Supp VT 650 mg Q4H PRN Administration Pain, Mild (1-3) Acetaminophen 650 mg 01/24/21 12:58 02/15/21 18:06 Acetaminophen 325 Mg/10.15 Ml Oral Liqd Unit Dose FEEDTUBE 650 mg Q6H PRN Administration Pain, Mild (1-3) Lipase/Protease/Amylase 1 each 01/26/21 14:25 Lipase 10,500/Protease 25,000/Amylase 43,750 (Units) Dr Cap FEEDTUBE PRN PRN For Clogged Feeding Tube Dextrose 50 ml 01/27/21 07:24 Dextrose 50% In Water (25gm) 50 Ml Syringe IV Q30MIN PRN Hypoglycemia Protocol Fentanyl 50 mcg 01/22/21 22:39 02/10/21 13:46 Fentanyl 100 Mcg/2 Ml Inj IV 50 mcg Q10MIN PRN Administration ANALGESIA Heparin Sodium (Porcine) 2,000 unit 02/11/21 09:38 Heparin 10,000 Units/10 Ml Vial IV SAGRARIO PRN hemodialysis Hydrophilic Ointment 1 applic 01/22/21 22:39 02/17/21 17:14 Lip Therapy Vaseline TP 1 applic Q2HR PRN Administration Dry Lips Fentanyl Citrate 2,000 mcg in 100 mls @ 6.124 mls/hr 01/22/21 23:00 02/17/21 19:57 Fentanyl Drip Premix IV 3 mcg/kg/hr TITR CECE 18.371 mls/hr Administration Protocol 1 MCG/KG/HR Propofol 1,000 mg in 100 mls @ 3.674 mls/hr 01/22/21 23:45 02/17/21 22:56 Diprivan 10 Mg/Ml IV 10 mcg/kg/min TITR CECE 7.348 mls/hr Administration Protocol 5 MCG/KG/MIN Norepinephrine 4 mg in 250 mls @ 7.5 mls/hr 01/28/21 14:00 02/08/21 06:08 Levophed Drip 4 Mg/Ns 250 Ml IV 0 mcg/min TITR CECE 0 mls/hr Titration Protocol 2 MCG/MIN Dexmedetomidine HCl 1,000 mcg/ 260 mls @ 6.368 mls/hr 01/30/21 20:00 02/17/21 22:56 Sodium Chloride IV 1.3 mcg/kg/hr TITRATE CECE 41.395 mls/hr Administration Protocol 0.2 MCG/KG/HR Sodium Chloride 100 mls @ 999 mls/hr 02/15/21 16:45 Nacl 0.9% IV SAGRARIO PRN Hypotension Multi-Ingred Cream/Lotion/Oil/Oint 1 applic 01/22/21 22:39 02/01/21 09:33 Mineral Oil/Petrolatum, White Ophth Oint 3.5 Gm OU 1 applic Q4HR PRN Administration Dry Eye(s) Ondansetron HCl 4 mg 01/23/21 02:17 Ondansetron 4 Mg/2 Ml Inj IV Q8H PRN Nausea And Vomiting Pantoprazole Sodium 40 mg 02/15/21 10:00 02/17/21 11:18 Pantoprazole 40 Mg Inj IV 40 mg DAILY CECE Administration Senna/Docusate Sodium 2 tab 02/17/21 11:00 02/17/21 19:56 Sennosides/Docusate Sodium 8.6/50 Mg Tab PO 2 tab TID CECE Administration Simple Syrup 15 ml 01/26/21 14:25 Simple Syrup 15 Ml FEEDTUBE PRN PRN Hypoglycemia Simple Syrup 30 ml 01/26/21 14:25 Simple Syrup 15 Ml FEEDTUBE PRN PRN Hypoglycemia Sodium Bicarbonate 325 mg 01/26/21 14:25 Sodium Bicarbonate 325 Mg Tab FEEDTUBE PRN PRN For Clogged Feeding Tube Nutrition/Malnutrition Assess - Dietary Evaluation Nutrition/Malnutrition Findings: Nutrition Notes Start: 01/26/21 13:59 Freq: Status: Active Protocol: Document 02/17/21 14:54 CW (Rec: 02/17/21 15:09 CW [id number]) Nutrition Notes Initial or Follow up Reassessment Current Diagnosis Acute Kidney Injury,Diabetes, Sepsis,Hypertension, Respiratory Failure, Hyperlipidemia Other Pertinent Diagnosis on HD, COVID-19 (+), bilat pneu Current Diet TF - Nepro at 36 ml/hr Labs/Tests Na 136 BUN 49 Cr 5.3 BG 139 Pertinent Medications propofol at 3.674 ml/hr (97 kcal) Height 5 ft 8 in Weight 161.4 kg [place] Body Weight (kg) 70.00 BMI 54.1 Weight change and time frame wt stable Weight Status Morbidly Obese Subjective/Other Information F/U for Na labs and TF tolerance. Pt continues to tolerate TF regimen at goal. No recent BW. RN to intitate Rx protocol for constipation. Pt now has pressure ulcer to lips. Percent of energy/protein needs met: 80%/61% Burn Absent Trauma Absent GI Symptoms None Difficulty In Swallowing Skin Integrity/Comment pressure uolcer to lips Current % PO Negligible Minimum of two criteria No physical signs of malnutrition #2 Nutrition Diagnosis Increased nutrient needs ( specify in comment below) Comments: protein Etiology wound healing As Evidenced by Signs and Symptoms pressure wound to lips #1 Nutrition Diagnosis Inadequate oral intake Diagnosis Progress(for reassessment Continues documentation) Is patient on ventilator? Yes Is Patient Ambulatory and/or Out of Bed No REE-(Sullivan-St. Jeor-confined to bed) 2870.220 Kcal/Kg value to use for calculation 12 Approximate Energy Requirements Using 1937 kcal/Kg Calculation Used for Recommendations Kcal/kg Additional Notes Pro needs >1.2g/kg adjBW: > 115g/day for HD needs Fluid needs 500+ total output or per MD Nutrition Intervention Change Diet Order: Increase TF Nutrition Support: Nepro at 46 ml/hr with a free water flush of 125 ml q4h for hyponatremia. Resume flush of 200 ml q4h once hyponatremia resolved. Kcal 1,987 Protein (gm) 89 Fluid (mL) 803 Goal #1 TF tolerance Goal #2 TF to meet at least 75% energy and pro needs Anticipated Discharge Needs: unable to determine at this time Follow-Up By: 02/19/21 Additional Comments F/U for TF tolerance and Na levels
--- NOTE | 2021-02-17 22:38 | Cat Scan Report ---
CT head without contrast HISTORY: Altered Mental Status. TECHNIQUE: Axial imaging performed from the skull apex through the skull base without the use of con trast. All CT scans at this location are performed using CT dose reduction for ALARA by means of aut omated exposure control. COMPARISON: None FINDINGS: Parenchyma: No acute intracranial hemorrhage or parenchymal abnormality. Extensive periventricular h ypodensities are present, likely microangiopathy Ventricles: There is mild diffuse brain atrophy with commensurate ventricular enlargement which is l ikely age appropriate. Soft tissues: Soft tissues including the orbits appear normal. Bones: No acute osseous abnormality. Sinuses: There is extensive mucosal thickening throughout the sphenoid sinuses and several ethmoid a ir cells. Remaining sinuses and mastoid air cells are clear. IMPRESSION: 1. No acute intracranial abnormality. 2. Paranasal sinus disease. Signer Name: Baljit Ty MD Signed: 02/17/2021 10:33 PM Workstation Name: [id number]
[2021-02-18] MEDS: fentaNYL DRIP Premix 2,000 MCG/100 ML BAG IV SCH ×4 (02:14→23:04)
[2021-02-18 05:13] LABS: Hematocrit 23.1 % (35.5-45.6); Hemoglobin 7.5 gm/dl (11.8-15.2); Mean Corpuscular HGB Conc 32 % (32-34); Mean Corpuscular Volume 96 fl (84-94); Platelet Count 231 K/mm3 (140-440); Red Cell Distribution Width 16.8 % (13.2-15.2)
[2021-02-18] MEDS: dexmedeTOMIDine 1,000 MCG in SODIUM CHLORIDE 0.9% 250ML 250 ML IV SCH ×3 (06:39→21:10)
[2021-02-18] MEDS: SENNOSIDES/DOCUSATE SODIUM 8.6/50 MG TAB PO SCH ×3 (08:48→21:10)
[2021-02-18] MEDS: PANTOPRAZOLE 40 MG INJ IV SCH (08:49)
--- NOTE | 2021-02-18 10:13 | Progress Note ---
Assessment and Plan Assessment: Acute Hypoxic respiratory failure COVID-19 PNA Severe sepsis with septic shock Acute kidney injury secondary to ATN Hyperkalemia Hypernatremia DM2 on insulin Anemia Plan: Judith labs reviewed. Serum creatinine 6.5 today, yesterday's was 5.3 Hemodialysis today for UF and clearance Initiated on HD on 02/03/21 S/P Right IJ Trialysis dialysis catheter placement by Dr Reddy Strict I&O's monitoring, no UOP recorded Renally dose medications Assess dialysis needs daily Monitor for renal recovery Subjective Date of service: 02/18/21 Principal diagnosis: DEISI Interval history: Patient not directly seen or examined due to being with active COVID-19 infection to limit/reduce risk of exposure and or transmission of the disease in this pandemic and due to limited PPE resources. Objective - Vital Signs Vital signs: Vital Signs - 12hr 02/17/21 02/17/21 02/17/21 22:34 23:01 23:13 Temperature Pulse Rate 128 H 99 H Pulse Rate [ From Monitor] Respiratory 28 H 34 H Rate Blood Pressure 107/63 113/71 113/71 O2 Sat by Pulse 87 Oximetry 02/17/21 02/18/21 02/18/21 23:31 00:00 00:19 Temperature 98.8 F Pulse Rate 90 89 88 Pulse Rate [ 88 From Monitor] Respiratory 34 H 34 H Rate Blood Pressure 92/50 96/55 96/55 O2 Sat by Pulse 97 96 92 Oximetry 02/18/21 02/18/21 02/18/21 00:30 01:00 01:30 Temperature Pulse Rate 85 82 83 Pulse Rate [ From Monitor] Respiratory 34 H 34 H 34 H Rate Blood Pressure 99/57 100/59 99/63 O2 Sat by Pulse 95 99 95 Oximetry 02/18/21 02/18/21 02/18/21 02:00 02:30 03:00 Temperature Pulse Rate 80 88 88 Pulse Rate [ From Monitor] Respiratory 34 H 34 H 34 H Rate Blood Pressure 97/61 105/59 102/59 O2 Sat by Pulse 100 97 97 Oximetry 02/18/21 02/18/21 02/18/21 03:30 03:50 03:52 Temperature 98.5 F Pulse Rate 89 90 Pulse Rate [ From Monitor] Respiratory 34 H Rate Blood Pressure 102/59 102/59 O2 Sat by Pulse 96 95 Oximetry 04/02/18/21 02/18/21 04:00 04:30 05:00 Temperature 98.5 F Pulse Rate 91 H 88 88 Pulse Rate [ 90 From Monitor] Respiratory 34 H 34 H 35 H Rate Blood Pressure 109/61 109/58 107/56 O2 Sat by Pulse 92 93 92 Oximetry 02/18/21 02/18/21 02/18/21 05:30 06:00 06:30 Temperature Pulse Rate 89 88 89 Pulse Rate [ From Monitor] Respiratory 34 H 34 H 34 H Rate Blood Pressure 107/57 103/59 106/58 O2 Sat by Pulse 98 98 94 Oximetry 02/18/21 02/18/21 02/18/21 07:00 07:30 07:46 Temperature 98.7 F Pulse Rate 88 88 Pulse Rate [ From Monitor] Respiratory 34 H 34 H Rate Blood Pressure 106/58 109/63 O2 Sat by Pulse 94 100 Oximetry 02/18/21 02/18/21 02/18/21 08:00 08:16 08:30 Temperature Pulse Rate 87 92 H 84 Pulse Rate [ From Monitor] Respiratory 34 H 34 H Rate Blood Pressure 107/61 107/61 106/68 O2 Sat by Pulse 99 96 100 Oximetry 02/18/21 02/18/21 02/18/21 09:00 09:30 10:00 Temperature Pulse Rate 89 88 87 Pulse Rate [ From Monitor] Respiratory 33 H 34 H 35 H Rate Blood Pressure 110/66 113/66 114/71 O2 Sat by Pulse 92 95 97 Oximetry - Lab 02/18/21 05:02 02/18/21 04:55 Most recent lab results ABG pH 7.219 (7.320-7.450) L 02/18/21 04:03 ABG pCO2 51.2 mm Hg 02/12/21 04:41 ABG pO2 69.0 mm Hg (80.0-90.0) L 02/12/21 04:41 ABG HCO3 32.5 mmol/L (20.0-26.0) H 02/12/21 04:41 ABG O2 Saturation 91.2 (0-100) 02/17/21 04:00 Calcium 8.0 mg/dL (8.4-10.2) L 02/18/21 04:55 Phosphorus 3.90 mg/dL (2.5-4.5) 02/13/21 06:40 Magnesium 1.70 mg/dL (1.7-2.3) 02/16/21 17:09 Urine Creatinine 53.0 mg/dL (0.1-20.0) H 01/30/21 12:00 Urine Sodium 28 mmol/L 01/22/21 22:39 Medications & Allergies - Medications Allergies/Adverse Reactions: Allergies No Known Allergies Allergy (Unverified 03/12/20 13:41) Home Medications: Home Medications Medication Instructions Recorded Confirmed Last Taken Type Insulin NPH/Regular [Novolin 70/30] 18 unit SUB-Q TIDAC #1 vial 03/12/20 Unknown Rx Syringe-Needle,Insulin,0.5 ml 1 box MC TID #1 box 03/12/20 Unknown Rx [Insulin Syringe/Needle 0.5 ML] Active Medications: Generic Name Dose Route Start Last Admin Trade Name Freq PRN Reason Stop Dose Admin Acetaminophen 650 mg 01/23/21 02:25 02/11/21 18:20 Acetaminophen 650 Mg Rect Supp [place] 650 mg Q4H PRN Administration Pain, Mild (1-3) Acetaminophen 650 mg 01/24/21 12:58 02/15/21 18:06 Acetaminophen 325 Mg/10.15 Ml Oral Liqd Unit Dose FEEDTUBE 650 mg Q6H PRN Administration Pain, Mild (1-3) Lipase/Protease/Amylase 1 each 01/26/21 14:25 Lipase 10,500/Protease 25,000/Amylase 43,750 (Units) Dr Cap FEEDTUBE PRN PRN For Clogged Feeding Tube Dextrose 50 ml 01/27/21 07:24 Dextrose 50% In Water (25gm) 50 Ml Syringe IV Q30MIN PRN Hypoglycemia Protocol Fentanyl 50 mcg 01/22/21 22:39 02/10/21 13:46 Fentanyl 100 Mcg/2 Ml Inj IV 50 mcg Q10MIN PRN Administration ANALGESIA Heparin Sodium (Porcine) 2,000 unit 02/11/21 09:38 Heparin 10,000 Units/10 Ml Vial IV SAGRARIO PRN hemodialysis Hydrophilic Ointment 1 applic 01/22/21 22:39 02/17/21 17:14 Lip Therapy Vaseline TP 1 applic Q2HR PRN Administration Dry Lips Fentanyl Citrate 2,000 mcg in 100 mls @ 6.124 mls/hr 01/22/21 23:00 02/18/21 02:14 Fentanyl Drip Premix IV 2 mcg/kg/hr TITR CECE 12.247 mls/hr Administration Protocol 1 MCG/KG/HR Propofol 1,000 mg in 100 mls @ 3.674 mls/hr 01/22/21 23:45 02/18/21 09:35 Diprivan 10 Mg/Ml IV 15 mcg/kg/min TITR CECE 11.022 mls/hr Administration Protocol 5 MCG/KG/MIN Norepinephrine 4 mg in 250 mls @ 7.5 mls/hr 01/28/21 14:00 02/08/21 06:08 Levophed Drip 4 Mg/Ns 250 Ml IV 0 mcg/min TITR CECE 0 mls/hr Titration Protocol 2 MCG/MIN Dexmedetomidine HCl 1,000 mcg/ 260 mls @ 6.368 mls/hr 01/30/21 20:00 02/18/21 06:39 Sodium Chloride IV 1.3 mcg/kg/hr TITRATE CECE 41.395 mls/hr Administration Protocol 0.2 MCG/KG/HR Sodium Chloride 100 mls @ 999 mls/hr 02/15/21 16:45 Nacl 0.9% IV SAGRARIO PRN Hypotension Lansoprazole 30 mg 02/18/21 10:00 Lansoprazole 30 Mg Solutab FEEDTUBE QDAY CECE Multi-Ingred Cream/Lotion/Oil/Oint 1 applic 01/22/21 22:39 02/01/21 09:33 Mineral Oil/Petrolatum, White Ophth Oint 3.5 Gm OU 1 applic Q4HR PRN Administration Dry Eye(s) Ondansetron HCl 4 mg 01/23/21 02:17 Ondansetron 4 Mg/2 Ml Inj IV Q8H PRN Nausea And Vomiting Senna/Docusate Sodium 2 tab 02/17/21 11:00 02/18/21 08:48 Sennosides/Docusate Sodium 8.6/50 Mg Tab PO 2 tab TID CECE Administration Simple Syrup 15 ml 01/26/21 14:25 Simple Syrup 15 Ml FEEDTUBE PRN PRN Hypoglycemia Simple Syrup 30 ml 01/26/21 14:25 Simple Syrup 15 Ml FEEDTUBE PRN PRN Hypoglycemia Sodium Bicarbonate 325 mg 01/26/21 14:25 Sodium Bicarbonate 325 Mg Tab FEEDTUBE PRN PRN For Clogged Feeding Tube
--- NOTE | 2021-02-18 15:37 | Progress Note ---
Assessment and Plan 60 y/o male with ARDS secondary most likely to COVID 19 pneumonia. 02/18/21: HD per renal. continue sedation to help with oxygenation. Overall prognosis remains very guarded to poor. IMS has been speaking with family so will defer to them. Currently patient is not a candidate for trach given his oxygen and peep requirements. 02/17/21: Fine with cutting back on HD as not really helped with oxygenation. Continue to wean as tolerated for sats >88% and PaO2 >55. Sedation to achieve negative rass scoring. very very guarded to poor prognosis. 02/16/21: HD now. Wean FiO2 for sats> 88%. Agree with stopping ativan and holding on starting diprovan to see if the patient truly needs it. pH holding off bicarb drip goal is >7.2. Very very guarded to poor prognosis. 02/13/21: HD again now. Replace electrolytes per renal. Continue abx therapy per ID. Will get RT to wean FiO2 as not done on yesterday. Will restart diprovan post HD and stop ativan. Check Levels (Triglycerides on Tue or Tuesday). Can stop bicarb drip however must make sure that ABG is checked daily to make sure that pH is good. Very very guarded prognosis. 02/12/21: HD again today. Had a 12 second run of VTACH today as well. Stable. K is low, checking mag levels. Will alert Renal so they can adjust bath as needed. Post HD will start to wean FiO2 again. Unable to prone as patient does not tolerate. Repeat blood cultures negative and first set only showing Coag Negative Staph. Prognosis still remains very very guarded to poor. Will consi sky restarting Diprovan tomorrow. Patient now intubated for 20 days now but not candidate for trach yet given elevated PEEP and FiO2 levels but did discuss on rounds. 02/11/21: Vascath placed today for HD. Orders already in. Wean FiO2 for sats >88%. Abx per ID. Repeat cultures so far negative. Given persistent fevers, will check upper ext dopplers. Prognosis still remains guarded. 02/10/21: Triglycerides improved but current sedation is adequate so will hold on stopping ativan to add propofol back. Awaiting Labs from this morning. Plan to replace HD catheter tomorrow morning as early as possible. Fever curve is trending down. Continue bicarb drip for now. Prognosis remains guarded. WIll speak with family tomorrow to update. 02/09/21: Repeat Triglycerides today. Follow up repeat blood cultures. Given continued fever will hold on replacing vascath today. If fever free the next 24 hours, can place in the morning or Tuesday morning. Will likely need blood with next HD session. Continue bicarb drip to help manage respiratory as well as metabolic acidosis. Wean FiO2 for sats >88% and PaO2 >55. Overall prognosis remains guarded to poor. 02/08/21: Picc out today. Will repeat culture if patient spikes again today. Plan to replace HD catheter either late tomorrow or Tuesday. Continue current level of sedation. Abx therapy per ID. Wean FiO2 as tolerated, doubt will be able to do much until we can resume HD. Guarded prognosis. Replaced potassium. Will need to check in the morning. Will repeat K later this afternoon. 02/07/21: Biggest issue now is that patient's numbers are better with HD but now with bacteremia, concern for line infection. ID is correct in requesting line holiday. Has a picc and an Right IJ Dialysis catheter with 3 ports. Currently getting HD today. Have not seen renal yet. Will pull right IJ line post HD and plan to replace it Tuesday evening or Tuesday. Continue bicarb drip for now and will keep picc as patient has been requiring levophed. If able to be weaned off levophed, will remove picc either tomorrow or Tuesday. Continue Ativan, Precedex and Fent drips, repeat Triglycerides on Tuesday. Very very guarded prognosis. Will remove Black today as well. 02/06/21: Will add bicarb drip at 125/hr. Giving 2 amps of NaHCO3 push now. Will repeat ABG this afternoon, may just ask for Art Line if possible. HD today per renal and I spoke with them about the bicarb drip. Long discussion with Sister, Significant and other and another family member on the phone on yesterday. I tried my best to explain the severity of the clinical state but not sure if they fully understood. The patient is very very ill and history suggests that his outcome will be poor (intubated with covid and renal failure on dialysis). This was expressed with the family. Will continue all supportive measures. Checking triglyceride levels today. 02/05/21: WIll increase PEEP to 16. Can increase pressors if needed for BP control during HD. Follow up cultures. If negative will scan legs and arms again for VTE. Repeat ABG at 1400 today. Will speak with sister and Girlfriend on phone today. 02/04/21: HD again today per renal notes. Likely will need daily HD. New fevers. Will draw blood and urine cultures if able to still make urine.. Repeat CXR. May need to check dopplers if all of those studies are negative. Wean FIO2 as tolerated. Unable to tolerate proning. Guarded to poor prognosis. 02/03/21: HD today per renal. Wean FiO2 as tolerated. No further proning as patient cannot tolerate it, however with volume removal, may consider in the future. Use pressors to keep MAPs 65 and greater for HD purporses so volume can be removed. (IJ was wide open (filled with blood)) with patient sitting up at 45 degrees. Guarded prognosis. 02/02/21: After renal speaks with family, will place vascath today. Agree with bicarb drip but will order some pushes now to help with pH. Overall prognosis is very very guarded to poor now that patient is COVID positive and requiring renal replacement therapy. Mortality is very high in these patients. Continue steroid therapy. Unable to tolerate proning. 01/30/21: Will plan for proning later today. Goal will be at least 12hrs but long is okay. Speaking with pharmacy to see if we can get paralytic for a longer period of time. Regardless will prone. Continue heavy sedation. BP stable. Continue steroids. Very very guarded prognosis. 01/29/21: will increase tidal volume and/or increase respiratory rate. Repeat ABG this afternoon. Continue paralytic and adequate sedation. Continue steroid and remdesivir, follow up any renal recs. Prognosis remains guarded. Wean Fio2 for sats >88% 01/28/21: Increased PEEP to 16. Will paralyze patient today and increase sedation. Ordering picc line for possible vasopressor therapy needs. Continue BID steroids. Renal function is slightly better today with fluids but could be making oxygenation worse. Not able to diurese. Still making urine. Continue Remdesivir. Watch for fever curve. If not improvement in the next 24 hours with paralyzing, will prone tomorrow morning. 01/27/21: Continue PEEP at 14. No weaning until FiO2 is at or below 40-45%. Continue anticoagulation. Getting Remdesivir now. Continue BID steroids. Renal has increased the fluids. Monitor urine output and renal function. Overall prognosis is very very guarded, especially if renal status worsens. 01/26/21: Increase PEEP to 14. Will add Precedex therapy. If patient does not respond to increases in PEEP may need to prone. Will place patient on lovenox and will feed patient. Remdesivir coming. Continue BID steroids. Prognosis is guarded. 01/25/21: Hold on proning today. Continue BID steroids. ABG this AM was adequate. Pending abg tomorrow, may increase PEEP if not able to wean FiO2 any further. Per charting Remdesivir to arrive tomorrow. Guarded prognosis. 01/24/21: Continue BID steroids. No abg done this am but able to wean FiO2. Will obtain ABG in the am. Hold on proning for right now. Renal following, would like to diurese but they are given fluids for deisi. Agree with ID assessment and note. Guarded prognosis. 1. Increase steroids to BID given size 2. Check with ID to see if he is a candidate for remdesivir or any other experiemental therapy 3. Hold on proning for right now 4. Renal consulted and giving IVF's currently Guarded prognosis. CCT 31 minutes. Subjective Date of service: 02/18/21 Principal diagnosis: DEISI Interval history: No acute events. Getting HD again today. [facility] [place] ordered a head CT for altered mental state. Objective Vital Signs - 12hr 02/18/21 02/18/21 02/18/21 03:50 03:52 04:00 Temperature 98.5 F 98.5 F Pulse Rate 90 91 H Pulse Rate [ 90 From Monitor] Pulse Rate [ Right Dorsalis Pedis] Respiratory 34 H Rate Blood Pressure 102/59 109/61 O2 Sat by Pulse 95 92 Oximetry O2 Sat by Pulse Oximetry [ Anterior Bilateral Throughout] 02/18/21 02/18/21 02/18/21 04:30 05:00 05:30 Temperature Pulse Rate 88 88 89 Pulse Rate [ From Monitor] Pulse Rate [ Right Dorsalis Pedis] Respiratory 34 H 35 H 34 H Rate Blood Pressure 109/58 107/56 107/57 O2 Sat by Pulse 93 92 98 Oximetry O2 Sat by Pulse Oximetry [ Anterior Bilateral Throughout] 02/18/21 02/18/21 02/18/21 06:00 06:30 07:00 Temperature Pulse Rate 88 89 88 Pulse Rate [ From Monitor] Pulse Rate [ Right Dorsalis Pedis] Respiratory 34 H 34 H 34 H Rate Blood Pressure 103/59 106/58 106/58 O2 Sat by Pulse 98 94 94 Oximetry O2 Sat by Pulse Oximetry [ Anterior Bilateral Throughout] 02/18/21 02/18/21 02/18/21 07:30 07:46 08:00 Temperature 98.7 F Pulse Rate 88 87 Pulse Rate [ From Monitor] Pulse Rate [ Right Dorsalis Pedis] Respiratory 34 H 34 H Rate Blood Pressure 109/63 107/61 O2 Sat by Pulse 100 99 Oximetry O2 Sat by Pulse Oximetry [ Anterior Bilateral Throughout] 02/18/21 02/18/21 02/18/21 08:16 08:30 09:00 Temperature Pulse Rate 92 H 84 89 Pulse Rate [ From Monitor] Pulse Rate [ Right Dorsalis Pedis] Respiratory 34 H 33 H Rate Blood Pressure 107/61 106/68 110/66 O2 Sat by Pulse 96 100 92 Oximetry O2 Sat by Pulse Oximetry [ Anterior Bilateral Throughout] 02/18/21 02/18/21 02/18/21 09:30 10:00 10:30 Temperature Pulse Rate 88 87 93 H Pulse Rate [ From Monitor] Pulse Rate [ Right Dorsalis Pedis] Respiratory 34 H 35 H 35 H Rate Blood Pressure 113/66 114/71 127/79 O2 Sat by Pulse 95 97 Oximetry O2 Sat by Pulse Oximetry [ Anterior Bilateral Throughout] 02/18/21 02/18/21 02/18/21 11:00 11:30 11:40 Temperature 97.3 F L Pulse Rate 98 H 105 H Pulse Rate [ From Monitor] Pulse Rate [ Right Dorsalis Pedis] Respiratory 36 H 35 H Rate Blood Pressure 117/81 131/79 O2 Sat by Pulse 97 97 Oximetry O2 Sat by Pulse Oximetry [ Anterior Bilateral Throughout] 02/18/21 02/18/21 02/18/21 11:54 12:00 12:30 Temperature Pulse Rate 87 92 H Pulse Rate [ 89 From Monitor] Pulse Rate [ 89 Right Dorsalis Pedis] Respiratory 34 H 34 H 36 H Rate Blood Pressure 116/61 126/69 O2 Sat by Pulse 94 92 92 Oximetry O2 Sat by Pulse Oximetry [ Anterior Bilateral Throughout] 02/18/21 02/18/21 02/18/21 12:32 13:00 13:19 Temperature 98.1 F Pulse Rate 93 H 96 H Pulse Rate [ From Monitor] Pulse Rate [ Right Dorsalis Pedis] Respiratory 36 H Rate Blood Pressure 129/74 129/74 O2 Sat by Pulse 100 98 Oximetry O2 Sat by Pulse Oximetry [ Anterior Bilateral Throughout] 02/18/21 02/18/21 02/18/21 13:30 13:47 13:53 Temperature 98.7 F Pulse Rate 90 85 85 Pulse Rate [ From Monitor] Pulse Rate [ Right Dorsalis Pedis] Respiratory 27 H 35 H Rate Blood Pressure 114/63 104/58 104/58 O2 Sat by Pulse 93 Oximetry O2 Sat by Pulse 93 Oximetry [ Anterior Bilateral Throughout] 02/18/21 02/18/21 02/18/21 14:00 14:15 14:30 Temperature Pulse Rate 82 83 83 Pulse Rate [ From Monitor] Pulse Rate [ Right Dorsalis Pedis] Respiratory 36 H 33 H Rate Blood Pressure 105/56 102/58 98/55 O2 Sat by Pulse 91 92 Oximetry O2 Sat by Pulse Oximetry [ Anterior Bilateral Throughout] 02/18/21 02/18/21 02/18/21 14:45 15:00 15:15 Temperature Pulse Rate 81 81 82 Pulse Rate [ From Monitor] Pulse Rate [ Right Dorsalis Pedis] Respiratory Rate Blood Pressure 97/53 97/51 104/55 O2 Sat by Pulse Oximetry O2 Sat by Pulse Oximetry [ Anterior Bilateral Throughout] 02/18/21 15:30 Temperature Pulse Rate 83 Pulse Rate [ From Monitor] Pulse Rate [ Right Dorsalis Pedis] Respiratory Rate Blood Pressure 103/57 O2 Sat by Pulse Oximetry O2 Sat by Pulse Oximetry [ Anterior Bilateral Throughout] Constitutional: comatose Eyes: non-icteric ENT: other (orally intubated and sedated) Neck: supple Effort: mildly labored Ascultation: Bilateral: clear Percussion: Bilateral: not dull Cardiovascular: regular rate and rhythm (no mrg) Gastrointestinal: normoactive bowel sounds, soft, non-tender, non-distended Integumentary: normal Extremities: no cyanosis, no edema, pink and warm Neurologic: unable to assess CBC and BMP: 02/18/21 05:02 02/18/21 04:55 ABG, PT/INR, D-dimer: ABG ABG pH 7.219 (7.320-7.450) L 02/18/21 04:03 POC ABG pCO2 58.7 mmHg (32.0-48.0) H 02/18/21 04:03 ABG pCO2 51.2 mm Hg 02/12/21 04:41 POC ABG pO2 64.2 mmHg (83-108) L 02/18/21 04:03 ABG pO2 69.0 mm Hg (80.0-90.0) L 02/12/21 04:41 POC ABG HCO3 23.4 02/18/21 04:03 ABG O2 Saturation 91.2 (0-100) 02/17/21 04:00 PT/INR, D-dimer PT 14.9 Sec. (12.2-14.9) 02/11/21 08:27 INR 1.17 (0.87-1.13) H 02/11/21 08:27 D-Dimer 3183.35 ng/mlDDU (0-234) H 02/17/21 04:14 Abnormal lab findings: Abnormal Labs 01/22/21 01/22/21 01/22/21 22:39 22:57 22:57 WBC RBC Hgb Hct MCV MCH MCHC RDW Plt Count Lymph % (Auto) 6.6 L Lymph # (Auto) 0.5 L Seg Neutrophils % 87.6 H Seg Neuts % (Manual) Lymphocytes % (Manual) Nucleated RBC % Seg Neutrophils # Seg Neutrophils # Man Lymphocytes # (Manual) Eosinophils # (Manual) INR D-Dimer ABG pH POC ABG pCO2 POC ABG pO2 ABG pO2 ABG HCO3 ABG O2 Saturation ABG Base Excess ABG Hemoglobin ABG Oxyhemoglobin ABG Sodium ABG Potassium ABG Chloride ABG Glucose Oxyhemoglobin Carboxyhemoglobin Sodium 129 L Potassium 3.4 L Chloride 90.4 L Carbon Dioxide BUN 34 H Creatinine 1.5 H Glucose 146 H POC Glucose Hemoglobin A1c Lactic Acid Calcium 7.8 L Phosphorus Magnesium Ferritin Total Bilirubin AST 75 H ALT 57 H Lactate Dehydrogenase C-Reactive Protein Albumin 2.9 L Triglycerides Arterial Blood Glucose Arterial Blood Ionized Calcium Urine Creatinine 301.2 H Coronavirus (PCR) Crossmatch 01/22/21 01/22/21 01/22/21 22:57 22:57 22:57 WBC RBC Hgb Hct MCV MCH MCHC RDW Plt Count Lymph % (Auto) Lymph # (Auto) Seg Neutrophils % Seg Neuts % (Manual) Lymphocytes % (Manual) Nucleated RBC % Seg Neutrophils # Seg Neutrophils # Man Lymphocytes # (Manual) Eosinophils # (Manual) INR D-Dimer 1173.89 H ABG pH POC ABG pCO2 POC ABG pO2 ABG pO2 ABG HCO3 ABG O2 Saturation ABG Base Excess ABG Hemoglobin ABG Oxyhemoglobin ABG Sodium ABG Potassium ABG Chloride ABG Glucose Oxyhemoglobin Carboxyhemoglobin Sodium Potassium Chloride Carbon Dioxide BUN Creatinine Glucose 149 H POC Glucose Hemoglobin A1c Lactic Acid 2.10 H* Calcium Phosphorus Magnesium Ferritin Total Bilirubin AST ALT Lactate Dehydrogenase 685 H C-Reactive Protein 30.40 H Albumin Triglycerides Arterial Blood Glucose Arterial Blood Ionized Calcium Urine Creatinine Coronavirus (PCR) Crossmatch 01/22/21 01/23/21 01/23/21 22:57 08:41 10:01 WBC RBC Hgb Hct MCV MCH MCHC RDW Plt Count Lymph % (Auto) Lymph # (Auto) Seg Neutrophils % Seg Neuts % (Manual) Lymphocytes % (Manual) Nucleated RBC % Seg Neutrophils # Seg Neutrophils # Man Lymphocytes # (Manual) Eosinophils # (Manual) INR D-Dimer ABG pH POC ABG pCO2 POC ABG pO2 ABG pO2 ABG HCO3 ABG O2 Saturation ABG Base Excess ABG Hemoglobin ABG Oxyhemoglobin ABG Sodium ABG Potassium ABG Chloride ABG Glucose Oxyhemoglobin Carboxyhemoglobin Sodium 131 L Potassium Chloride 88.7 L Carbon Dioxide 18 L BUN 36 H Creatinine 1.6 H Glucose 147 H POC Glucose Hemoglobin A1c Lactic Acid Calcium 7.5 L Phosphorus Magnesium Ferritin 1207.0 H Total Bilirubin AST ALT Lactate Dehydrogenase C-Reactive Protein Albumin Triglycerides Arterial Blood Glucose Arterial Blood Ionized Calcium Urine Creatinine Coronavirus (PCR) Positive A Crossmatch 01/23/21 01/23/21 01/24/21 20:49 Unknown 00:10 WBC RBC Hgb Hct MCV MCH MCHC RDW Plt Count Lymph % (Auto) Lymph # (Auto) Seg Neutrophils % Seg Neuts % (Manual) Lymphocytes % (Manual) Nucleated RBC % Seg Neutrophils # Seg Neutrophils # Man Lymphocytes # (Manual) Eosinophils # (Manual) INR D-Dimer ABG pH POC ABG pCO2 POC ABG pO2 ABG pO2 165.4 H ABG HCO3 ABG O2 Saturation ABG Base Excess -2.5 L ABG Hemoglobin ABG Oxyhemoglobin ABG Sodium ABG Potassium ABG Chloride ABG Glucose Oxyhemoglobin Carboxyhemoglobin Sodium 130 L Potassium Chloride 91.0 L Carbon Dioxide 20 L BUN 52 H Creatinine 3.8 H D Glucose 150 H POC Glucose 125 H Hemoglobin A1c Lactic Acid Calcium 8.0 L Phosphorus Magnesium Ferritin Total Bilirubin AST 42 H ALT Lactate Dehydrogenase C-Reactive Protein Albumin 2.4 L Triglycerides Arterial Blood Glucose Arterial Blood Ionized Calcium Urine Creatinine Coronavirus (PCR) Crossmatch 01/24/21 01/24/21 01/24/21 05:05 05:05 05:05 WBC 14.0 H RBC Hgb Hct MCV 95 H MCH 33 H MCHC RDW Plt Count Lymph % (Auto) Lymph # (Auto) Seg Neutrophils % Seg Neuts % (Manual) 91.0 H Lymphocytes % (Manual) 4.0 L Nucleated RBC % Seg Neutrophils # Seg Neutrophils # Man 12.7 H Lymphocytes # (Manual) 0.6 L Eosinophils # (Manual) INR D-Dimer 6159.48 H ABG pH POC ABG pCO2 POC ABG pO2 ABG pO2 ABG HCO3 ABG O2 Saturation ABG Base Excess ABG Hemoglobin ABG Oxyhemoglobin ABG Sodium ABG Potassium ABG Chloride ABG Glucose Oxyhemoglobin Carboxyhemoglobin Sodium Potassium Chloride Carbon Dioxide BUN Creatinine Glucose POC Glucose Hemoglobin A1c Lactic Acid Calcium Phosphorus Magnesium Ferritin 1178.0 H Total Bilirubin AST ALT Lactate Dehydrogenase C-Reactive Protein Albumin Triglycerides Arterial Blood Glucose Arterial Blood Ionized Calcium Urine Creatinine Coronavirus (PCR) Crossmatch 01/24/21 01/24/21 01/24/21 05:05 05:05 05:05 WBC RBC Hgb Hct MCV MCH MCHC RDW Plt Count Lymph % (Auto) Lymph # (Auto) Seg Neutrophils % Seg Neuts % (Manual) Lymphocytes % (Manual) Nucleated RBC % Seg Neutrophils # Seg Neutrophils # Man Lymphocytes # (Manual) Eosinophils # (Manual) INR D-Dimer ABG pH POC ABG pCO2 POC ABG pO2 ABG pO2 ABG HCO3 ABG O2 Saturation ABG Base Excess ABG Hemoglobin ABG Oxyhemoglobin ABG Sodium ABG Potassium ABG Chloride ABG Glucose Oxyhemoglobin Carboxyhemoglobin Sodium 132 L Potassium Chloride 93.1 L Carbon Dioxide 21 L BUN 57 H Creatinine 3.7 H Glucose 133 H POC Glucose Hemoglobin A1c Lactic Acid 2.20 H* Calcium 7.7 L Phosphorus Magnesium Ferritin Total Bilirubin AST ALT Lactate Dehydrogenase 658 H C-Reactive Protein 33.20 H Albumin 2.4 L Triglycerides Arterial Blood Glucose Arterial Blood Ionized Calcium Urine Creatinine Coronavirus (PCR) Crossmatch 01/24/21 01/24/21 01/24/21 05:34 06:00 17:35 WBC RBC Hgb Hct MCV MCH MCHC RDW Plt Count Lymph % (Auto) Lymph # (Auto) Seg Neutrophils % Seg Neuts % (Manual) Lymphocytes % (Manual) Nucleated RBC % Seg Neutrophils # Seg Neutrophils # Man Lymphocytes # (Manual) Eosinophils # (Manual) INR D-Dimer ABG pH POC ABG pCO2 POC ABG pO2 ABG pO2 ABG HCO3 ABG O2 Saturation ABG Base Excess ABG Hemoglobin ABG Oxyhemoglobin ABG Sodium ABG Potassium ABG Chloride ABG Glucose Oxyhemoglobin Carboxyhemoglobin Sodium Potassium Chloride Carbon Dioxide BUN Creatinine Glucose POC Glucose 136 H 137 H Hemoglobin A1c Lactic Acid Calcium Phosphorus Magnesium 2.80 H Ferritin Total Bilirubin AST ALT Lactate Dehydrogenase C-Reactive Protein Albumin Triglycerides Arterial Blood Glucose Arterial Blood Ionized Calcium Urine Creatinine Coronavirus (PCR) Crossmatch 01/25/21 01/25/21 01/25/21 04:15 05:40 05:40 WBC RBC Hgb Hct MCV 95 H MCH 33 H MCHC 35 H RDW Plt Count Lymph % (Auto) Lymph # (Auto) Seg Neutrophils % Seg Neuts % (Manual) 95.0 H Lymphocytes % (Manual) 3.0 L Nucleated RBC % Seg Neutrophils # Seg Neutrophils # Man 7.8 H Lymphocytes # (Manual) 0.2 L Eosinophils # (Manual) INR D-Dimer ABG pH POC ABG pCO2 POC ABG pO2 63.2 L ABG pO2 ABG HCO3 ABG O2 Saturation ABG Base Excess ABG Hemoglobin ABG Oxyhemoglobin 89.6 L ABG Sodium ABG Potassium ABG Chloride ABG Glucose 165 H Oxyhemoglobin Carboxyhemoglobin 0.3 L Sodium Potassium Chloride Carbon Dioxide BUN 67 H Creatinine 3.4 H Glucose 153 H POC Glucose Hemoglobin A1c Lactic Acid Calcium 7.5 L Phosphorus Magnesium Ferritin Total Bilirubin 1.40 H AST 62 H ALT Lactate Dehydrogenase C-Reactive Protein Albumin 2.6 L Triglycerides Arterial Blood Glucose 165 H Arterial Blood Ionized Calcium 4.3 L Urine Creatinine Coronavirus (PCR) Crossmatch 01/25/21 01/25/21 01/25/21 05:59 12:00 17:17 WBC RBC Hgb Hct MCV MCH MCHC RDW Plt Count Lymph % (Auto) Lymph # (Auto) Seg Neutrophils % Seg Neuts % (Manual) Lymphocytes % (Manual) Nucleated RBC % Seg Neutrophils # Seg Neutrophils # Man Lymphocytes # (Manual) Eosinophils # (Manual) INR D-Dimer ABG pH POC ABG pCO2 POC ABG pO2 ABG pO2 ABG HCO3 ABG O2 Saturation ABG Base Excess ABG Hemoglobin ABG Oxyhemoglobin ABG Sodium ABG Potassium ABG Chloride ABG Glucose Oxyhemoglobin Carboxyhemoglobin Sodium Potassium Chloride Carbon Dioxide BUN Creatinine Glucose POC Glucose 140 H 143 H 149 H Hemoglobin A1c Lactic Acid Calcium Phosphorus Magnesium Ferritin Total Bilirubin AST ALT Lactate Dehydrogenase C-Reactive Protein Albumin Triglycerides Arterial Blood Glucose Arterial Blood Ionized Calcium Urine Creatinine Coronavirus (PCR) Crossmatch 01/25/21 01/26/21 01/26/21 23:41 03:43 05:46 WBC RBC Hgb Hct MCV MCH MCHC RDW Plt Count Lymph % (Auto) Lymph # (Auto) Seg Neutrophils % Seg Neuts % (Manual) Lymphocytes % (Manual) Nucleated RBC % Seg Neutrophils # Seg Neutrophils # Man Lymphocytes # (Manual) Eosinophils # (Manual) INR D-Dimer ABG pH POC ABG pCO2 POC ABG pO2 70.0 L ABG pO2 ABG HCO3 ABG O2 Saturation ABG Base Excess ABG Hemoglobin ABG Oxyhemoglobin 91.9 L ABG Sodium ABG Potassium ABG Chloride 109.0 H ABG Glucose 165 H Oxyhemoglobin Carboxyhemoglobin Sodium Potassium Chloride Carbon Dioxide BUN Creatinine Glucose POC Glucose 132 H 161 H Hemoglobin A1c Lactic Acid Calcium Phosphorus Magnesium Ferritin Total Bilirubin AST ALT Lactate Dehydrogenase C-Reactive Protein Albumin Triglycerides Arterial Blood Glucose 165 H Arterial Blood Ionized Calcium 4.5 L Urine Creatinine Coronavirus (PCR) Crossmatch 01/26/21 01/26/21 01/26/21 05:47 05:47 05:47 WBC RBC Hgb Hct 35.3 L MCV 96 H MCH 33 H MCHC RDW Plt Count Lymph % (Auto) Lymph # (Auto) Seg Neutrophils % Seg Neuts % (Manual) 96.0 H Lymphocytes % (Manual) 2.0 L Nucleated RBC % Seg Neutrophils # Seg Neutrophils # Man Lymphocytes # (Manual) 0.1 L Eosinophils # (Manual) INR D-Dimer > 01377 H ABG pH POC ABG pCO2 POC ABG pO2 ABG pO2 ABG HCO3 ABG O2 Saturation ABG Base Excess ABG Hemoglobin ABG Oxyhemoglobin ABG Sodium ABG Potassium ABG Chloride ABG Glucose Oxyhemoglobin Carboxyhemoglobin Sodium Potassium Chloride Carbon Dioxide BUN 57 H Creatinine 2.2 H Glucose 185 H POC Glucose Hemoglobin A1c Lactic Acid Calcium 8.1 L Phosphorus Magnesium Ferritin Total Bilirubin AST ALT Lactate Dehydrogenase C-Reactive Protein Albumin Triglycerides Arterial Blood Glucose Arterial Blood Ionized Calcium Urine Creatinine Coronavirus (PCR) Crossmatch 01/26/21 01/26/21 01/26/21 05:47 05:47 05:47 WBC RBC Hgb Hct MCV MCH MCHC RDW Plt Count Lymph % (Auto) Lymph # (Auto) Seg Neutrophils % Seg Neuts % (Manual) Lymphocytes % (Manual) Nucleated RBC % Seg Neutrophils # Seg Neutrophils # Man Lymphocytes # (Manual) Eosinophils # (Manual) INR D-Dimer ABG pH POC ABG pCO2 POC ABG pO2 ABG pO2 ABG HCO3 ABG O2 Saturation ABG Base Excess ABG Hemoglobin ABG Oxyhemoglobin ABG Sodium ABG Potassium ABG Chloride ABG Glucose Oxyhemoglobin Carboxyhemoglobin Sodium Potassium Chloride 107.1 H Carbon Dioxide BUN 56 H Creatinine 2.2 H Glucose 188 H POC Glucose Hemoglobin A1c Lactic Acid Calcium 8.0 L Phosphorus Magnesium Ferritin 1178.0 H Total Bilirubin 1.50 H AST ALT Lactate Dehydrogenase 588 H C-Reactive Protein 40.10 H Albumin 2.2 L Triglycerides Arterial Blood Glucose Arterial Blood Ionized Calcium Urine Creatinine Coronavirus (PCR) Crossmatch 01/26/21 01/26/21 01/26/21 11:34 18:17 23:20 WBC RBC Hgb Hct MCV MCH MCHC RDW Plt Count Lymph % (Auto) Lymph # (Auto) Seg Neutrophils % Seg Neuts % (Manual) Lymphocytes % (Manual) Nucleated RBC % Seg Neutrophils # Seg Neutrophils # Man Lymphocytes # (Manual) Eosinophils # (Manual) INR D-Dimer ABG pH POC ABG pCO2 POC ABG pO2 ABG pO2 ABG HCO3 ABG O2 Saturation ABG Base Excess ABG Hemoglobin ABG Oxyhemoglobin ABG Sodium ABG Potassium ABG Chloride ABG Glucose Oxyhemoglobin Carboxyhemoglobin Sodium Potassium Chloride Carbon Dioxide BUN Creatinine Glucose POC Glucose 129 H 205 H 155 H Hemoglobin A1c Lactic Acid Calcium Phosphorus Magnesium Ferritin Total Bilirubin AST ALT Lactate Dehydrogenase C-Reactive Protein Albumin Triglycerides Arterial Blood Glucose Arterial Blood Ionized Calcium Urine Creatinine Coronavirus (PCR) Crossmatch 01/27/21 01/27/21 01/27/21 02:45 05:29 05:29 WBC RBC 3.58 L Hgb 11.7 L Hct 34.9 L MCV 97 H MCH 33 H MCHC RDW Plt Count Lymph % (Auto) Lymph # (Auto) Seg Neutrophils % Seg Neuts % (Manual) 88.0 H Lymphocytes % (Manual) 7.0 L Nucleated RBC % Seg Neutrophils # Seg Neutrophils # Man Lymphocytes # (Manual) 0.5 L Eosinophils # (Manual) INR D-Dimer ABG pH 7.319 L POC ABG pCO2 50.7 H POC ABG pO2 63.0 L ABG pO2 ABG HCO3 ABG O2 Saturation ABG Base Excess ABG Hemoglobin ABG Oxyhemoglobin ABG Sodium 145.2 H ABG Potassium 5.1 H ABG Chloride 114.0 H ABG Glucose 178 H Oxyhemoglobin Carboxyhemoglobin Sodium Potassium Chloride Carbon Dioxide BUN Creatinine Glucose POC Glucose Hemoglobin A1c Lactic Acid Calcium Phosphorus Magnesium 4.00 H Ferritin Total Bilirubin AST ALT Lactate Dehydrogenase C-Reactive Protein Albumin Triglycerides Arterial Blood Glucose 178 H Arterial Blood Ionized Calcium Urine Creatinine Coronavirus (PCR) Crossmatch 01/27/21 01/27/21 01/27/21 05:29 05:29 05:31 WBC RBC Hgb Hct MCV MCH MCHC RDW Plt Count Lymph % (Auto) Lymph # (Auto) Seg Neutrophils % Seg Neuts % (Manual) Lymphocytes % (Manual) Nucleated RBC % Seg Neutrophils # Seg Neutrophils # Man Lymphocytes # (Manual) Eosinophils # (Manual) INR D-Dimer ABG pH POC ABG pCO2 POC ABG pO2 ABG pO2 ABG HCO3 ABG O2 Saturation ABG Base Excess ABG Hemoglobin ABG Oxyhemoglobin ABG Sodium ABG Potassium ABG Chloride ABG Glucose Oxyhemoglobin Carboxyhemoglobin Sodium Potassium 5.2 H Chloride 109.6 H Carbon Dioxide BUN 67 H Creatinine 2.8 H Glucose 195 H POC Glucose 176 H Hemoglobin A1c Lactic Acid Calcium 7.9 L Phosphorus Magnesium Ferritin Total Bilirubin AST ALT Lactate Dehydrogenase C-Reactive Protein Albumin Triglycerides 160 H Arterial Blood Glucose Arterial Blood Ionized Calcium Urine Creatinine Coronavirus (PCR) Crossmatch 01/27/21 01/27/2121 11:27 18:08 23:30 WBC RBC Hgb Hct MCV MCH MCHC RDW Plt Count Lymph % (Auto) Lymph # (Auto) Seg Neutrophils % Seg Neuts % (Manual) Lymphocytes % (Manual) Nucleated RBC % Seg Neutrophils # Seg Neutrophils # Man Lymphocytes # (Manual) Eosinophils # (Manual) INR D-Dimer ABG pH POC ABG pCO2 POC ABG pO2 ABG pO2 ABG HCO3 ABG O2 Saturation ABG Base Excess ABG Hemoglobin ABG Oxyhemoglobin ABG Sodium ABG Potassium ABG Chloride ABG Glucose Oxyhemoglobin Carboxyhemoglobin Sodium Potassium Chloride Carbon Dioxide BUN Creatinine Glucose POC Glucose 189 H 212 H 175 H Hemoglobin A1c Lactic Acid Calcium Phosphorus Magnesium Ferritin Total Bilirubin AST ALT Lactate Dehydrogenase C-Reactive Protein Albumin Triglycerides Arterial Blood Glucose Arterial Blood Ionized Calcium Urine Creatinine Coronavirus (PCR) Crossmatch 01/28/21 01/28/21 01/28/21 03:58 04:00 04:00 WBC RBC Hgb Hct MCV MCH MCHC RDW Plt Count Lymph % (Auto) Lymph # (Auto) Seg Neutrophils % Seg Neuts % (Manual) Lymphocytes % (Manual) Nucleated RBC % Seg Neutrophils # Seg Neutrophils # Man Lymphocytes # (Manual) Eosinophils # (Manual) INR D-Dimer > 50869 H ABG pH POC ABG pCO2 POC ABG pO2 52.9 L ABG pO2 ABG HCO3 ABG O2 Saturation ABG Base Excess ABG Hemoglobin ABG Oxyhemoglobin 84.1 L ABG Sodium 148.9 H ABG Potassium ABG Chloride 117.0 H ABG Glucose 194 H Oxyhemoglobin Carboxyhemoglobin Sodium Potassium Chloride Carbon Dioxide BUN Creatinine Glucose POC Glucose Hemoglobin A1c Lactic Acid Calcium Phosphorus Magnesium Ferritin Total Bilirubin AST ALT Lactate Dehydrogenase 679 H C-Reactive Protein 17.10 H Albumin Triglycerides Arterial Blood Glucose 194 H Arterial Blood Ionized Calcium Urine Creatinine Coronavirus (PCR) Crossmatch 01/28/21 01/28/21 01/28/21 04:00 05:00 06:00 WBC RBC 3.59 L Hgb 11.6 L Hct 34.8 L MCV 97 H MCH MCHC RDW Plt Count Lymph % (Auto) Lymph # (Auto) Seg Neutrophils % Seg Neuts % (Manual) 96.0 H Lymphocytes % (Manual) 3.0 L Nucleated RBC % Seg Neutrophils # Seg Neutrophils # Man Lymphocytes # (Manual) 0.2 L Eosinophils # (Manual) INR D-Dimer ABG pH POC ABG pCO2 POC ABG pO2 ABG pO2 ABG HCO3 ABG O2 Saturation ABG Base Excess ABG Hemoglobin ABG Oxyhemoglobin ABG Sodium ABG Potassium ABG Chloride ABG Glucose Oxyhemoglobin Carboxyhemoglobin Sodium Potassium Chloride Carbon Dioxide BUN Creatinine Glucose POC Glucose 159 H Hemoglobin A1c Lactic Acid Calcium Phosphorus Magnesium Ferritin 798.0 H Total Bilirubin AST ALT Lactate Dehydrogenase C-Reactive Protein Albumin Triglycerides Arterial Blood Glucose Arterial Blood Ionized Calcium Urine Creatinine Coronavirus (PCR) Crossmatch 01/28/21 01/28/21 01/28/21 06:00 06:00 08:12 WBC RBC Hgb Hct MCV MCH MCHC RDW Plt Count Lymph % (Auto) Lymph # (Auto) Seg Neutrophils % Seg Neuts % (Manual) Lymphocytes % (Manual) Nucleated RBC % Seg Neutrophils # Seg Neutrophils # Man Lymphocytes # (Manual) Eosinophils # (Manual) INR D-Dimer ABG pH POC ABG pCO2 POC ABG pO2 ABG pO2 ABG HCO3 ABG O2 Saturation ABG Base Excess ABG Hemoglobin ABG Oxyhemoglobin ABG Sodium ABG Potassium ABG Chloride ABG Glucose Oxyhemoglobin Carboxyhemoglobin Sodium Potassium Chloride 111.9 H Carbon Dioxide BUN 59 H Creatinine 2.2 H Glucose 189 H POC Glucose 181 H Hemoglobin A1c Lactic Acid Calcium 8.1 L Phosphorus Magnesium 3.20 H Ferritin Total Bilirubin AST ALT Lactate Dehydrogenase C-Reactive Protein Albumin Triglycerides Arterial Blood Glucose Arterial Blood Ionized Calcium Urine Creatinine Coronavirus (PCR) Crossmatch 01/28/21 01/28/21 01/28/21 12:03 16:43 23:51 WBC RBC Hgb Hct MCV MCH MCHC RDW Plt Count Lymph % (Auto) Lymph # (Auto) Seg Neutrophils % Seg Neuts % (Manual) Lymphocytes % (Manual) Nucleated RBC % Seg Neutrophils # Seg Neutrophils # Man Lymphocytes # (Manual) Eosinophils # (Manual) INR D-Dimer ABG pH POC ABG pCO2 POC ABG pO2 ABG pO2 ABG HCO3 ABG O2 Saturation ABG Base Excess ABG Hemoglobin ABG Oxyhemoglobin ABG Sodium ABG Potassium ABG Chloride ABG Glucose Oxyhemoglobin Carboxyhemoglobin Sodium Potassium Chloride Carbon Dioxide BUN Creatinine Glucose POC Glucose 164 H 198 H 196 H Hemoglobin A1c Lactic Acid Calcium Phosphorus Magnesium Ferritin Total Bilirubin AST ALT Lactate Dehydrogenase C-Reactive Protein Albumin Triglycerides Arterial Blood Glucose Arterial Blood Ionized Calcium Urine Creatinine Coronavirus (PCR) Crossmatch 01/29/21 01/29/21 01/29/21 05:00 05:23 06:00 WBC RBC Hgb Hct MCV MCH MCHC RDW Plt Count Lymph % (Auto) Lymph # (Auto) Seg Neutrophils % Seg Neuts % (Manual) Lymphocytes % (Manual) Nucleated RBC % Seg Neutrophils # Seg Neutrophils # Man Lymphocytes # (Manual) Eosinophils # (Manual) INR D-Dimer ABG pH 7.119 L POC ABG pCO2 87.1 H POC ABG pO2 ABG pO2 ABG HCO3 ABG O2 Saturation ABG Base Excess ABG Hemoglobin ABG Oxyhemoglobin ABG Sodium 152.5 H ABG Potassium 5.7 H ABG Chloride 120.0 H ABG Glucose 217 H Oxyhemoglobin Carboxyhemoglobin Sodium 151 H Potassium 5.9 H D Chloride 117.8 H Carbon Dioxide BUN 54 H Creatinine 2.2 H Glucose 208 H POC Glucose 180 H Hemoglobin A1c Lactic Acid Calcium 7.9 L Phosphorus Magnesium Ferritin Total Bilirubin AST ALT Lactate Dehydrogenase C-Reactive Protein Albumin Triglycerides Arterial Blood Glucose 217 H Arterial Blood Ionized Calcium Urine Creatinine Coronavirus (PCR) Crossmatch 01/29/21 01/29/21 01/29/21 12:29 17:28 18:05 WBC RBC Hgb Hct MCV MCH MCHC RDW Plt Count Lymph % (Auto) Lymph # (Auto) Seg Neutrophils % Seg Neuts % (Manual) Lymphocytes % (Manual) Nucleated RBC % Seg Neutrophils # Seg Neutrophils # Man Lymphocytes # (Manual) Eosinophils # (Manual) INR D-Dimer ABG pH POC ABG pCO2 POC ABG pO2 ABG pO2 ABG HCO3 ABG O2 Saturation ABG Base Excess ABG Hemoglobin ABG Oxyhemoglobin ABG Sodium ABG Potassium ABG Chloride ABG Glucose Oxyhemoglobin Carboxyhemoglobin Sodium 151 H Potassium 5.5 H Chloride 118.2 H Carbon Dioxide BUN 52 H Creatinine 2.2 H Glucose 224 H POC Glucose 181 H 203 H Hemoglobin A1c Lactic Acid Calcium 8.0 L Phosphorus Magnesium Ferritin Total Bilirubin AST ALT Lactate Dehydrogenase C-Reactive Protein Albumin Triglycerides Arterial Blood Glucose Arterial Blood Ionized Calcium Urine Creatinine Coronavirus (PCR) Crossmatch 01/29/21 01/29/21 01/29/21 18:13 23:34 Unknown WBC RBC Hgb Hct MCV 101 H MCH MCHC RDW 15.7 H Plt Count Lymph % (Auto) Lymph # (Auto) Seg Neutrophils % Seg Neuts % (Manual) 95.0 H Lymphocytes % (Manual) 3.0 L Nucleated RBC % Seg Neutrophils # Seg Neutrophils # Man 8.0 H Lymphocytes # (Manual) 0.3 L Eosinophils # (Manual) INR D-Dimer ABG pH 7.223 L POC ABG pCO2 64.8 H POC ABG pO2 63.6 L ABG pO2 ABG HCO3 ABG O2 Saturation ABG Base Excess ABG Hemoglobin ABG Oxyhemoglobin 89.4 L ABG Sodium 152.9 H ABG Potassium 5.3 H ABG Chloride 121.0 H ABG Glucose 227 H Oxyhemoglobin Carboxyhemoglobin Sodium Potassium Chloride Carbon Dioxide BUN Creatinine Glucose POC Glucose 198 H Hemoglobin A1c Lactic Acid Calcium Phosphorus Magnesium Ferritin Total Bilirubin AST ALT Lactate Dehydrogenase C-Reactive Protein Albumin Triglycerides Arterial Blood Glucose 227 H Arterial Blood Ionized Calcium Urine Creatinine Coronavirus (PCR) Crossmatch 01/30/21 01/30/21 01/30/21 04:00 04:00 04:00 WBC RBC Hgb Hct MCV MCH MCHC RDW Plt Count Lymph % (Auto) Lymph # (Auto) Seg Neutrophils % Seg Neuts % (Manual) Lymphocytes % (Manual) Nucleated RBC % Seg Neutrophils # Seg Neutrophils # Man Lymphocytes # (Manual) Eosinophils # (Manual) INR D-Dimer > 08123 H ABG pH POC ABG pCO2 POC ABG pO2 ABG pO2 ABG HCO3 ABG O2 Saturation ABG Base Excess ABG Hemoglobin ABG Oxyhemoglobin ABG Sodium ABG Potassium ABG Chloride ABG Glucose Oxyhemoglobin Carboxyhemoglobin Sodium Potassium Chloride Carbon Dioxide BUN Creatinine Glucose 234 H POC Glucose Hemoglobin A1c Lactic Acid Calcium Phosphorus Magnesium Ferritin 763.9 H Total Bilirubin AST ALT Lactate Dehydrogenase 424 H C-Reactive Protein 23.90 H Albumin Triglycerides Arterial Blood Glucose Arterial Blood Ionized Calcium Urine Creatinine Coronavirus (PCR) Crossmatch 01/30/21 01/30/21 01/30/21 04:24 05:00 05:16 WBC RBC 3.57 L Hgb 11.3 L Hct 35.4 L MCV 99 H MCH MCHC RDW 15.6 H Plt Count Lymph % (Auto) Lymph # (Auto) Seg Neutrophils % Seg Neuts % (Manual) 97.0 H Lymphocytes % (Manual) 1.0 L Nucleated RBC % Seg Neutrophils # Seg Neutrophils # Man 8.6 H Lymphocytes # (Manual) 0.1 L Eosinophils # (Manual) INR D-Dimer ABG pH 7.235 L POC ABG pCO2 69.7 H POC ABG pO2 61.0 L ABG pO2 ABG HCO3 ABG O2 Saturation ABG Base Excess ABG Hemoglobin ABG Oxyhemoglobin 89 L ABG Sodium 154.2 H ABG Potassium 5.4 H ABG Chloride 121.0 H ABG Glucose 247 H Oxyhemoglobin Carboxyhemoglobin Sodium Potassium Chloride Carbon Dioxide BUN Creatinine Glucose POC Glucose 238 H Hemoglobin A1c Lactic Acid Calcium Phosphorus Magnesium Ferritin Total Bilirubin AST ALT Lactate Dehydrogenase C-Reactive Protein Albumin Triglycerides Arterial Blood Glucose 247 H Arterial Blood Ionized Calcium Urine Creatinine Coronavirus (PCR) Crossmatch 01/30/21 01/30/21 01/30/21 06:00 11:28 12:00 WBC RBC Hgb Hct MCV MCH MCHC RDW Plt Count Lymph % (Auto) Lymph # (Auto) Seg Neutrophils % Seg Neuts % (Manual) Lymphocytes % (Manual) Nucleated RBC % Seg Neutrophils # Seg Neutrophils # Man Lymphocytes # (Manual) Eosinophils # (Manual) INR D-Dimer ABG pH POC ABG pCO2 POC ABG pO2 ABG pO2 ABG HCO3 ABG O2 Saturation ABG Base Excess ABG Hemoglobin ABG Oxyhemoglobin ABG Sodium ABG Potassium ABG Chloride ABG Glucose Oxyhemoglobin Carboxyhemoglobin Sodium 152 H Potassium 5.3 H Chloride 120.5 H Carbon Dioxide BUN 50 H Creatinine 2.3 H Glucose 239 H POC Glucose 153 H Hemoglobin A1c Lactic Acid Calcium 8.2 L Phosphorus Magnesium 2.60 H Ferritin Total Bilirubin AST ALT Lactate Dehydrogenase C-Reactive Protein Albumin Triglycerides 293 H Arterial Blood Glucose Arterial Blood Ionized Calcium Urine Creatinine 53.0 H Coronavirus (PCR) Crossmatch 01/30/21 01/30/21 01/31/21 18:49 23:06 04:00 WBC RBC Hgb Hct MCV MCH MCHC RDW Plt Count Lymph % (Auto) Lymph # (Auto) Seg Neutrophils % Seg Neuts % (Manual) Lymphocytes % (Manual) Nucleated RBC % Seg Neutrophils # Seg Neutrophils # Man Lymphocytes # (Manual) Eosinophils # (Manual) INR D-Dimer ABG pH POC ABG pCO2 POC ABG pO2 ABG pO2 ABG HCO3 ABG O2 Saturation ABG Base Excess ABG Hemoglobin ABG Oxyhemoglobin ABG Sodium ABG Potassium ABG Chloride ABG Glucose Oxyhemoglobin Carboxyhemoglobin Sodium 156 H Potassium 5.9 H Chloride 122.6 H Carbon Dioxide BUN 61 H Creatinine 3.2 H Glucose 205 H POC Glucose 220 H 192 H Hemoglobin A1c Lactic Acid Calcium 8.0 L Phosphorus Magnesium Ferritin Total Bilirubin AST ALT Lactate Dehydrogenase C-Reactive Protein Albumin Triglycerides Arterial Blood Glucose Arterial Blood Ionized Calcium Urine Creatinine Coronavirus (PCR) Crossmatch 01/31/21 01/31/21 01/31/21 04:40 05:17 11:33 WBC RBC Hgb Hct MCV MCH MCHC RDW Plt Count Lymph % (Auto) Lymph # (Auto) Seg Neutrophils % Seg Neuts % (Manual) Lymphocytes % (Manual) Nucleated RBC % Seg Neutrophils # Seg Neutrophils # Man Lymphocytes # (Manual) Eosinophils # (Manual) INR D-Dimer ABG pH 7.161 L* POC ABG pCO2 POC ABG pO2 ABG pO2 142.2 H ABG HCO3 28.3 H ABG O2 Saturation ABG Base Excess -3.2 L ABG Hemoglobin ABG Oxyhemoglobin ABG Sodium ABG Potassium ABG Chloride ABG Glucose Oxyhemoglobin Carboxyhemoglobin Sodium Potassium Chloride Carbon Dioxide BUN Creatinine Glucose POC Glucose 200 H 167 H Hemoglobin A1c Lactic Acid Calcium Phosphorus Magnesium Ferritin Total Bilirubin AST ALT Lactate Dehydrogenase C-Reactive Protein Albumin Triglycerides Arterial Blood Glucose Arterial Blood Ionized Calcium Urine Creatinine Coronavirus (PCR) Crossmatch 01/31/21 01/31/21 01/31/21 14:00 17:10 23:24 WBC RBC Hgb Hct MCV MCH MCHC RDW Plt Count Lymph % (Auto) Lymph # (Auto) Seg Neutrophils % Seg Neuts % (Manual) Lymphocytes % (Manual) Nucleated RBC % Seg Neutrophils # Seg Neutrophils # Man Lymphocytes # (Manual) Eosinophils # (Manual) INR D-Dimer ABG pH 7.205 L POC ABG pCO2 POC ABG pO2 ABG pO2 90.9 H ABG HCO3 26.5 H ABG O2 Saturation ABG Base Excess -2.7 L ABG Hemoglobin 12.3 L ABG Oxyhemoglobin ABG Sodium ABG Potassium ABG Chloride ABG Glucose Oxyhemoglobin 93.9 L Carboxyhemoglobin Sodium Potassium Chloride Carbon Dioxide BUN Creatinine Glucose POC Glucose 190 H 203 H Hemoglobin A1c Lactic Acid Calcium Phosphorus Magnesium Ferritin Total Bilirubin AST ALT Lactate Dehydrogenase C-Reactive Protein Albumin Triglycerides Arterial Blood Glucose Arterial Blood Ionized Calcium Urine Creatinine Coronavirus (PCR) Crossmatch 02/01/21 02/01/21 02/01/21 05:15 06:22 10:20 WBC RBC Hgb Hct MCV MCH MCHC RDW Plt Count Lymph % (Auto) Lymph # (Auto) Seg Neutrophils % Seg Neuts % (Manual) Lymphocytes % (Manual) Nucleated RBC % Seg Neutrophils # Seg Neutrophils # Man Lymphocytes # (Manual) Eosinophils # (Manual) INR D-Dimer ABG pH 6.920 L* 7.116 L* POC ABG pCO2 POC ABG pO2 ABG pO2 102.9 H 113.1 H ABG HCO3 28.2 H ABG O2 Saturation 92.9 L ABG Base Excess -6.9 L -5.8 L ABG Hemoglobin 11.6 L 9.5 L ABG Oxyhemoglobin ABG Sodium ABG Potassium ABG Chloride ABG Glucose Oxyhemoglobin 90.5 L 94.6 L Carboxyhemoglobin Sodium Potassium Chloride Carbon Dioxide BUN Creatinine Glucose POC Glucose 221 H Hemoglobin A1c Lactic Acid Calcium Phosphorus Magnesium Ferritin Total Bilirubin AST ALT Lactate Dehydrogenase C-Reactive Protein Albumin Triglycerides Arterial Blood Glucose Arterial Blood Ionized Calcium Urine Creatinine Coronavirus (PCR) Crossmatch 02/01/21 02/01/21 02/01/21 11:12 12:35 16:00 WBC RBC Hgb Hct MCV MCH MCHC RDW Plt Count Lymph % (Auto) Lymph # (Auto) Seg Neutrophils % Seg Neuts % (Manual) Lymphocytes % (Manual) Nucleated RBC % Seg Neutrophils # Seg Neutrophils # Man Lymphocytes # (Manual) Eosinophils # (Manual) INR D-Dimer ABG pH 7.155 L* POC ABG pCO2 POC ABG pO2 ABG pO2 94.6 H ABG HCO3 ABG O2 Saturation ABG Base Excess -6.5 L ABG Hemoglobin 13.1 L ABG Oxyhemoglobin ABG Sodium ABG Potassium ABG Chloride ABG Glucose Oxyhemoglobin 93.7 L Carboxyhemoglobin Sodium 155 H Potassium 5.1 H Chloride 120.5 H Carbon Dioxide BUN 90 H Creatinine 6.1 H D Glucose 238 H POC Glucose 207 H Hemoglobin A1c Lactic Acid Calcium 7.4 L Phosphorus Magnesium Ferritin Total Bilirubin AST ALT Lactate Dehydrogenase C-Reactive Protein Albumin Triglycerides Arterial Blood Glucose Arterial Blood Ionized Calcium Urine Creatinine Coronavirus (PCR) Crossmatch 02/01/21 02/01/21 02/02/21 17:10 23:47 04:04 WBC RBC 3.02 L Hgb 9.8 L Hct 30.7 L MCV 102 H MCH MCHC RDW 15.6 H Plt Count Lymph % (Auto) 4.2 L Lymph # (Auto) 0.3 L Seg Neutrophils % Seg Neuts % (Manual) Lymphocytes % (Manual) Nucleated RBC % Seg Neutrophils # Seg Neutrophils # Man Lymphocytes # (Manual) Eosinophils # (Manual) INR D-Dimer ABG pH POC ABG pCO2 POC ABG pO2 ABG pO2 ABG HCO3 ABG O2 Saturation ABG Base Excess ABG Hemoglobin ABG Oxyhemoglobin ABG Sodium ABG Potassium ABG Chloride ABG Glucose Oxyhemoglobin Carboxyhemoglobin Sodium Potassium Chloride Carbon Dioxide BUN Creatinine Glucose POC Glucose 238 H 235 H Hemoglobin A1c Lactic Acid Calcium Phosphorus Magnesium Ferritin Total Bilirubin AST ALT Lactate Dehydrogenase C-Reactive Protein Albumin Triglycerides Arterial Blood Glucose Arterial Blood Ionized Calcium Urine Creatinine Coronavirus (PCR) Crossmatch 02/02/21 02/02/21 02/02/21 05:18 05:35 11:28 WBC RBC Hgb Hct MCV MCH MCHC RDW Plt Count Lymph % (Auto) Lymph # (Auto) Seg Neutrophils % Seg Neuts % (Manual) Lymphocytes % (Manual) Nucleated RBC % Seg Neutrophils # Seg Neutrophils # Man Lymphocytes # (Manual) Eosinophils # (Manual) INR D-Dimer ABG pH 7.195 L* POC ABG pCO2 POC ABG pO2 ABG pO2 72.5 L ABG HCO3 ABG O2 Saturation 91.2 L ABG Base Excess -5.3 L ABG Hemoglobin 6.0 L ABG Oxyhemoglobin ABG Sodium ABG Potassium ABG Chloride ABG Glucose Oxyhemoglobin 89.1 L Carboxyhemoglobin Sodium Potassium Chloride 110.4 H Carbon Dioxide BUN 92 H Creatinine Glucose POC Glucose 239 H Hemoglobin A1c Lactic Acid Calcium Phosphorus Magnesium Ferritin Total Bilirubin AST ALT Lactate Dehydrogenase C-Reactive Protein Albumin Triglycerides Arterial Blood Glucose Arterial Blood Ionized Calcium Urine Creatinine Coronavirus (PCR) Crossmatch 02/02/21 02/02/21 02/02/21 11:53 16:00 18:04 WBC RBC Hgb Hct MCV MCH MCHC RDW Plt Count Lymph % (Auto) Lymph # (Auto) Seg Neutrophils % Seg Neuts % (Manual) Lymphocytes % (Manual) Nucleated RBC % Seg Neutrophils # Seg Neutrophils # Man Lymphocytes # (Manual) Eosinophils # (Manual) INR D-Dimer ABG pH POC ABG pCO2 POC ABG pO2 ABG pO2 ABG HCO3 ABG O2 Saturation ABG Base Excess ABG Hemoglobin ABG Oxyhemoglobin ABG Sodium ABG Potassium ABG Chloride ABG Glucose Oxyhemoglobin Carboxyhemoglobin Sodium Potassium Chloride Carbon Dioxide BUN Creatinine Glucose POC Glucose 248 H 199 H Hemoglobin A1c 6.3 H Lactic Acid Calcium Phosphorus Magnesium Ferritin Total Bilirubin AST ALT Lactate Dehydrogenase C-Reactive Protein Albumin Triglycerides Arterial Blood Glucose Arterial Blood Ionized Calcium Urine Creatinine Coronavirus (PCR) Crossmatch 02/02/21 02/03/21 02/03/21 23:31 03:12 04:10 WBC RBC 3.06 L Hgb 9.7 L Hct 30.4 L MCV 99 H MCH MCHC RDW 15.3 H Plt Count Lymph % (Auto) 6.1 L Lymph # (Auto) 0.5 L Seg Neutrophils % 86.1 H Seg Neuts % (Manual) Lymphocytes % (Manual) Nucleated RBC % Seg Neutrophils # Seg Neutrophils # Man Lymphocytes # (Manual) Eosinophils # (Manual) INR D-Dimer ABG pH 7.199 L POC ABG pCO2 48.3 H POC ABG pO2 68.3 L ABG pO2 ABG HCO3 ABG O2 Saturation ABG Base Excess ABG Hemoglobin 10.2 L ABG Oxyhemoglobin 89.2 L ABG Sodium 155.0 H ABG Potassium 4.6 H ABG Chloride 121.0 H ABG Glucose 166 H Oxyhemoglobin Carboxyhemoglobin 0.3 L Sodium Potassium Chloride Carbon Dioxide BUN Creatinine Glucose POC Glucose 200 H Hemoglobin A1c Lactic Acid Calcium Phosphorus Magnesium Ferritin Total Bilirubin AST ALT Lactate Dehydrogenase C-Reactive Protein Albumin Triglycerides Arterial Blood Glucose 166 H Arterial Blood Ionized Calcium 4.1 L Urine Creatinine Coronavirus (PCR) Crossmatch 02/03/21 02/03/21 02/03/21 04:10 05:34 11:51 WBC RBC Hgb Hct MCV MCH MCHC RDW Plt Count Lymph % (Auto) Lymph # (Auto) Seg Neutrophils % Seg Neuts % (Manual) Lymphocytes % (Manual) Nucleated RBC % Seg Neutrophils # Seg Neutrophils # Man Lymphocytes # (Manual) Eosinophils # (Manual) INR D-Dimer ABG pH POC ABG pCO2 POC ABG pO2 ABG pO2 ABG HCO3 ABG O2 Saturation ABG Base Excess ABG Hemoglobin ABG Oxyhemoglobin ABG Sodium ABG Potassium ABG Chloride ABG Glucose Oxyhemoglobin Carboxyhemoglobin Sodium 154 H D Potassium Chloride 116.7 H Carbon Dioxide 20 L BUN 130 H Creatinine 9.2 H D Glucose 160 H POC Glucose 130 H 154 H Hemoglobin A1c Lactic Acid Calcium 6.7 L Phosphorus 8.60 H Magnesium Ferritin Total Bilirubin AST ALT Lactate Dehydrogenase C-Reactive Protein Albumin Triglycerides Arterial Blood Glucose Arterial Blood Ionized Calcium Urine Creatinine Coronavirus (PCR) Crossmatch 02/03/21 02/03/21 02/04/21 16:49 23:22 03:48 WBC RBC Hgb Hct MCV MCH MCHC RDW Plt Count Lymph % (Auto) Lymph # (Auto) Seg Neutrophils % Seg Neuts % (Manual) Lymphocytes % (Manual) Nucleated RBC % Seg Neutrophils # Seg Neutrophils # Man Lymphocytes # (Manual) Eosinophils # (Manual) INR D-Dimer ABG pH 7.201 L POC ABG pCO2 54.5 H POC ABG pO2 74.0 L ABG pO2 ABG HCO3 ABG O2 Saturation ABG Base Excess ABG Hemoglobin 9.7 L ABG Oxyhemoglobin 91.1 L ABG Sodium 146.2 H ABG Potassium ABG Chloride 114.0 H ABG Glucose 155 H Oxyhemoglobin Carboxyhemoglobin Sodium Potassium Chloride Carbon Dioxide BUN Creatinine Glucose POC Glucose 164 H 152 H Hemoglobin A1c Lactic Acid Calcium Phosphorus Magnesium Ferritin Total Bilirubin AST ALT Lactate Dehydrogenase C-Reactive Protein Albumin Triglycerides Arterial Blood Glucose 155 H Arterial Blood Ionized Calcium 3.9 L Urine Creatinine Coronavirus (PCR) Crossmatch 02/04/21 02/04/21 02/04/21 04:45 04:45 04:45 WBC RBC 2.75 L Hgb 9.1 L Hct 26.9 L MCV 98 H MCH 33 H MCHC RDW Plt Count Lymph % (Auto) 6.8 L Lymph # (Auto) 0.5 L Seg Neutrophils % 87.2 H Seg Neuts % (Manual) Lymphocytes % (Manual) Nucleated RBC % Seg Neutrophils # Seg Neutrophils # Man Lymphocytes # (Manual) Eosinophils # (Manual) INR D-Dimer ABG pH POC ABG pCO2 POC ABG pO2 ABG pO2 ABG HCO3 ABG O2 Saturation ABG Base Excess ABG Hemoglobin ABG Oxyhemoglobin ABG Sodium ABG Potassium ABG Chloride ABG Glucose Oxyhemoglobin Carboxyhemoglobin Sodium 149 H Potassium Chloride 111.5 H Carbon Dioxide BUN 99 H Creatinine 8.5 H Glucose 139 H POC Glucose Hemoglobin A1c Lactic Acid Calcium 6.8 L Phosphorus 8.40 H Magnesium Ferritin Total Bilirubin AST ALT Lactate Dehydrogenase C-Reactive Protein Albumin Triglycerides Arterial Blood Glucose Arterial Blood Ionized Calcium Urine Creatinine Coronavirus (PCR) Crossmatch 02/04/21 02/04/21 02/04/21 06:05 11:44 18:00 WBC RBC Hgb Hct MCV MCH MCHC RDW Plt Count Lymph % (Auto) Lymph # (Auto) Seg Neutrophils % Seg Neuts % (Manual) Lymphocytes % (Manual) Nucleated RBC % Seg Neutrophils # Seg Neutrophils # Man Lymphocytes # (Manual) Eosinophils # (Manual) INR D-Dimer ABG pH POC ABG pCO2 POC ABG pO2 ABG pO2 ABG HCO3 ABG O2 Saturation ABG Base Excess ABG Hemoglobin ABG Oxyhemoglobin ABG Sodium ABG Potassium ABG Chloride ABG Glucose Oxyhemoglobin Carboxyhemoglobin Sodium Potassium Chloride Carbon Dioxide BUN Creatinine Glucose POC Glucose 138 H 129 H 163 H Hemoglobin A1c Lactic Acid Calcium Phosphorus Magnesium Ferritin Total Bilirubin AST ALT Lactate Dehydrogenase C-Reactive Protein Albumin Triglycerides Arterial Blood Glucose Arterial Blood Ionized Calcium Urine Creatinine Coronavirus (PCR) Crossmatch 02/04/21 02/05/21 02/05/21 23:48 01:50 01:50 WBC RBC 2.43 L Hgb 8.3 L Hct 23.6 L MCV 97 H MCH 34 H MCHC 35 H RDW Plt Count 137 L Lymph % (Auto) 8.4 L Lymph # (Auto) 0.6 L Seg Neutrophils % 86.1 H Seg Neuts % (Manual) Lymphocytes % (Manual) Nucleated RBC % Seg Neutrophils # Seg Neutrophils # Man Lymphocytes # (Manual) Eosinophils # (Manual) INR D-Dimer ABG pH POC ABG pCO2 POC ABG pO2 ABG pO2 ABG HCO3 ABG O2 Saturation ABG Base Excess ABG Hemoglobin ABG Oxyhemoglobin ABG Sodium ABG Potassium ABG Chloride ABG Glucose Oxyhemoglobin Carboxyhemoglobin Sodium Potassium Chloride Carbon Dioxide BUN Creatinine Glucose POC Glucose 157 H Hemoglobin A1c Lactic Acid Calcium Phosphorus 5.60 H D Magnesium Ferritin Total Bilirubin AST ALT Lactate Dehydrogenase C-Reactive Protein Albumin Triglycerides Arterial Blood Glucose Arterial Blood Ionized Calcium Urine Creatinine Coronavirus (PCR) Crossmatch 02/05/21 02/05/21 02/05/21 03:44 05:27 09:15 WBC RBC Hgb Hct MCV MCH MCHC RDW Plt Count Lymph % (Auto) Lymph # (Auto) Seg Neutrophils % Seg Neuts % (Manual) Lymphocytes % (Manual) Nucleated RBC % Seg Neutrophils # Seg Neutrophils # Man Lymphocytes # (Manual) Eosinophils # (Manual) INR D-Dimer ABG pH 7.202 L POC ABG pCO2 63.7 H POC ABG pO2 69.0 L ABG pO2 ABG HCO3 ABG O2 Saturation ABG Base Excess ABG Hemoglobin 9.4 L ABG Oxyhemoglobin ABG Sodium ABG Potassium ABG Chloride 108.0 H ABG Glucose 186 H Oxyhemoglobin Carboxyhemoglobin Sodium Potassium Chloride Carbon Dioxide BUN 78 H Creatinine 8.0 H Glucose 163 H POC Glucose 157 H Hemoglobin A1c Lactic Acid Calcium 6.3 L Phosphorus Magnesium Ferritin Total Bilirubin AST ALT Lactate Dehydrogenase C-Reactive Protein Albumin Triglycerides Arterial Blood Glucose 186 H Arterial Blood Ionized Calcium 3.9 L Urine Creatinine Coronavirus (PCR) Crossmatch 02/05/21 02/05/21 02/05/21 11:47 17:39 23:40 WBC RBC Hgb Hct MCV MCH MCHC RDW Plt Count Lymph % (Auto) Lymph # (Auto) Seg Neutrophils % Seg Neuts % (Manual) Lymphocytes % (Manual) Nucleated RBC % Seg Neutrophils # Seg Neutrophils # Man Lymphocytes # (Manual) Eosinophils # (Manual) INR D-Dimer ABG pH 7.273 L POC ABG pCO2 62.1 H POC ABG pO2 72.0 L ABG pO2 ABG HCO3 ABG O2 Saturation ABG Base Excess ABG Hemoglobin 9.1 L ABG Oxyhemoglobin 91.3 L ABG Sodium ABG Potassium 3.1 L ABG Chloride ABG Glucose 125 H Oxyhemoglobin Carboxyhemoglobin Sodium Potassium Chloride Carbon Dioxide BUN Creatinine Glucose POC Glucose 126 H 126 H Hemoglobin A1c Lactic Acid Calcium Phosphorus Magnesium Ferritin Total Bilirubin AST ALT Lactate Dehydrogenase C-Reactive Protein Albumin Triglycerides Arterial Blood Glucose 125 H Arterial Blood Ionized Calcium 4.0 L Urine Creatinine Coronavirus (PCR) Crossmatch 02/06/21 02/06/21 02/06/21 04:30 04:57 09:45 WBC RBC Hgb Hct MCV MCH MCHC RDW Plt Count Lymph % (Auto) Lymph # (Auto) Seg Neutrophils % Seg Neuts % (Manual) Lymphocytes % (Manual) Nucleated RBC % Seg Neutrophils # Seg Neutrophils # Man Lymphocytes # (Manual) Eosinophils # (Manual) INR D-Dimer ABG pH 7.159 L 7.138 L* POC ABG pCO2 76.3 H POC ABG pO2 66.9 L ABG pO2 ABG HCO3 ABG O2 Saturation 93.4 L ABG Base Excess -6.0 L ABG Hemoglobin 11.2 L 11.7 L ABG Oxyhemoglobin 88.2 L ABG Sodium ABG Potassium ABG Chloride ABG Glucose 134 H Oxyhemoglobin 91.2 L Carboxyhemoglobin Sodium Potassium Chloride Carbon Dioxide BUN Creatinine Glucose POC Glucose 124 H Hemoglobin A1c Lactic Acid Calcium Phosphorus Magnesium Ferritin Total Bilirubin AST ALT Lactate Dehydrogenase C-Reactive Protein Albumin Triglycerides Arterial Blood Glucose 134 H Arterial Blood Ionized Calcium 3.9 L Urine Creatinine Coronavirus (PCR) Crossmatch 02/06/21 02/06/21 02/06/21 11:11 17:00 17:00 WBC RBC Hgb Hct MCV MCH MCHC RDW Plt Count Lymph % (Auto) Lymph # (Auto) Seg Neutrophils % Seg Neuts % (Manual) Lymphocytes % (Manual) Nucleated RBC % Seg Neutrophils # Seg Neutrophils # Man Lymphocytes # (Manual) Eosinophils # (Manual) INR D-Dimer ABG pH 7.158 L* POC ABG pCO2 POC ABG pO2 ABG pO2 109.8 H ABG HCO3 28.7 H ABG O2 Saturation ABG Base Excess -2.5 L ABG Hemoglobin ABG Oxyhemoglobin ABG Sodium ABG Potassium ABG Chloride ABG Glucose Oxyhemoglobin 94.5 L Carboxyhemoglobin Sodium Potassium Chloride Carbon Dioxide BUN Creatinine Glucose POC Glucose 120 H Hemoglobin A1c Lactic Acid Calcium Phosphorus Magnesium Ferritin Total Bilirubin AST ALT Lactate Dehydrogenase C-Reactive Protein Albumin Triglycerides 503 H Arterial Blood Glucose Arterial Blood Ionized Calcium Urine Creatinine Coronavirus (PCR) Crossmatch 02/06/21 02/06/21 02/06/21 17:28 20:16 Unknown WBC 13.5 H RBC 2.98 L Hgb 9.3 L Hct 28.6 L MCV 96 H MCH MCHC RDW Plt Count Lymph % (Auto) Lymph # (Auto) Seg Neutrophils % Seg Neuts % (Manual) 87.0 H Lymphocytes % (Manual) 7.0 L Nucleated RBC % Seg Neutrophils # Seg Neutrophils # Man 11.7 H Lymphocytes # (Manual) 0.9 L Eosinophils # (Manual) 0.5 H INR D-Dimer ABG pH POC ABG pCO2 POC ABG pO2 ABG pO2 ABG HCO3 ABG O2 Saturation ABG Base Excess ABG Hemoglobin ABG Oxyhemoglobin ABG Sodium ABG Potassium ABG Chloride ABG Glucose Oxyhemoglobin Carboxyhemoglobin Sodium Potassium Chloride Carbon Dioxide BUN Creatinine Glucose POC Glucose 147 H 164 H Hemoglobin A1c Lactic Acid Calcium Phosphorus Magnesium Ferritin Total Bilirubin AST ALT Lactate Dehydrogenase C-Reactive Protein Albumin Triglycerides Arterial Blood Glucose Arterial Blood Ionized Calcium Urine Creatinine Coronavirus (PCR) Crossmatch 02/06/21 02/07/21 02/07/21 Unknown 01:21 04:00 WBC 12.0 H RBC 2.61 L Hgb 8.2 L Hct 24.5 L MCV MCH MCHC RDW Plt Count Lymph % (Auto) 8.9 L Lymph # (Auto) 1.1 L Seg Neutrophils % 86.3 H Seg Neuts % (Manual) Lymphocytes % (Manual) Nucleated RBC % Seg Neutrophils # 10.3 H Seg Neutrophils # Man Lymphocytes # (Manual) Eosinophils # (Manual) INR D-Dimer ABG pH POC ABG pCO2 POC ABG pO2 ABG pO2 ABG HCO3 ABG O2 Saturation ABG Base Excess ABG Hemoglobin ABG Oxyhemoglobin ABG Sodium ABG Potassium ABG Chloride ABG Glucose Oxyhemoglobin Carboxyhemoglobin Sodium Potassium 3.5 L Chloride Carbon Dioxide BUN 58 H Creatinine 6.6 H Glucose 107 H POC Glucose 173 H Hemoglobin A1c Lactic Acid Calcium 6.7 L Phosphorus 8.00 H D Magnesium Ferritin Total Bilirubin AST ALT Lactate Dehydrogenase C-Reactive Protein Albumin Triglycerides Arterial Blood Glucose Arterial Blood Ionized Calcium Urine Creatinine Coronavirus (PCR) Crossmatch 02/07/21 02/07/21 02/07/21 04:00 04:45 11:49 WBC RBC Hgb Hct MCV MCH MCHC RDW Plt Count Lymph % (Auto) Lymph # (Auto) Seg Neutrophils % Seg Neuts % (Manual) Lymphocytes % (Manual) Nucleated RBC % Seg Neutrophils # Seg Neutrophils # Man Lymphocytes # (Manual) Eosinophils # (Manual) INR D-Dimer ABG pH 7.287 L POC ABG pCO2 64.8 H POC ABG pO2 74.0 L ABG pO2 ABG HCO3 ABG O2 Saturation ABG Base Excess ABG Hemoglobin 9.1 L ABG Oxyhemoglobin 92.0 L ABG Sodium ABG Potassium 2.8 L ABG Chloride ABG Glucose 226 H Oxyhemoglobin Carboxyhemoglobin Sodium Potassium Chloride Carbon Dioxide BUN Creatinine Glucose POC Glucose 170 H Hemoglobin A1c Lactic Acid Calcium Phosphorus 5.50 H D Magnesium Ferritin Total Bilirubin AST ALT Lactate Dehydrogenase C-Reactive Protein Albumin Triglycerides Arterial Blood Glucose 226 H Arterial Blood Ionized Calcium 3.7 L Urine Creatinine Coronavirus (PCR) Crossmatch 02/07/21 02/07/21 02/07/21 13:48 17:45 23:02 WBC RBC Hgb Hct MCV MCH MCHC RDW Plt Count Lymph % (Auto) Lymph # (Auto) Seg Neutrophils % Seg Neuts % (Manual) Lymphocytes % (Manual) Nucleated RBC % Seg Neutrophils # Seg Neutrophils # Man Lymphocytes # (Manual) Eosinophils # (Manual) INR D-Dimer ABG pH POC ABG pCO2 POC ABG pO2 ABG pO2 ABG HCO3 ABG O2 Saturation ABG Base Excess ABG Hemoglobin ABG Oxyhemoglobin ABG Sodium ABG Potassium ABG Chloride ABG Glucose Oxyhemoglobin Carboxyhemoglobin Sodium 136 L Potassium 2.6 L* D Chloride 95.1 L Carbon Dioxide 33 H D BUN 30 H Creatinine 3.6 H Glucose 184 H POC Glucose 172 H 172 H Hemoglobin A1c Lactic Acid Calcium 6.9 L Phosphorus Magnesium Ferritin Total Bilirubin AST ALT Lactate Dehydrogenase C-Reactive Protein Albumin Triglycerides Arterial Blood Glucose Arterial Blood Ionized Calcium Urine Creatinine Coronavirus (PCR) Crossmatch 02/08/21 02/08/21 02/08/21 05:22 06:00 06:00 WBC RBC 2.21 L Hgb 7.2 L Hct 21.0 L MCV 95 H MCH MCHC RDW Plt Count Lymph % (Auto) Lymph # (Auto) Seg Neutrophils % Seg Neuts % (Manual) 87.0 H Lymphocytes % (Manual) 4.0 L Nucleated RBC % Seg Neutrophils # Seg Neutrophils # Man 8.5 H Lymphocytes # (Manual) 0.4 L Eosinophils # (Manual) INR D-Dimer ABG pH POC ABG pCO2 POC ABG pO2 ABG pO2 ABG HCO3 ABG O2 Saturation ABG Base Excess ABG Hemoglobin ABG Oxyhemoglobin ABG Sodium ABG Potassium ABG Chloride ABG Glucose Oxyhemoglobin Carboxyhemoglobin Sodium 136 L Potassium 2.4 L* Chloride 93.1 L Carbon Dioxide 36 H BUN 43 H Creatinine 5.4 H Glucose 167 H POC Glucose 162 H Hemoglobin A1c Lactic Acid Calcium 6.3 L Phosphorus Magnesium Ferritin Total Bilirubin AST ALT Lactate Dehydrogenase C-Reactive Protein Albumin Triglycerides Arterial Blood Glucose Arterial Blood Ionized Calcium Urine Creatinine Coronavirus (PCR) Crossmatch 02/08/21 02/08/21 02/08/21 11:44 17:53 18:56 WBC RBC Hgb Hct MCV MCH MCHC RDW Plt Count Lymph % (Auto) Lymph # (Auto) Seg Neutrophils % Seg Neuts % (Manual) Lymphocytes % (Manual) Nucleated RBC % Seg Neutrophils # Seg Neutrophils # Man Lymphocytes # (Manual) Eosinophils # (Manual) INR D-Dimer ABG pH POC ABG pCO2 POC ABG pO2 ABG pO2 ABG HCO3 ABG O2 Saturation ABG Base Excess ABG Hemoglobin ABG Oxyhemoglobin ABG Sodium ABG Potassium ABG Chloride ABG Glucose Oxyhemoglobin Carboxyhemoglobin Sodium Potassium 2.9 L* D Chloride Carbon Dioxide BUN Creatinine Glucose POC Glucose 164 H 154 H Hemoglobin A1c Lactic Acid Calcium Phosphorus Magnesium Ferritin Total Bilirubin AST ALT Lactate Dehydrogenase C-Reactive Protein Albumin Triglycerides Arterial Blood Glucose Arterial Blood Ionized Calcium Urine Creatinine Coronavirus (PCR) Crossmatch 02/08/21 02/08/21 02/09/21 23:24 23:58 03:21 WBC RBC Hgb Hct MCV MCH MCHC RDW Plt Count Lymph % (Auto) Lymph # (Auto) Seg Neutrophils % Seg Neuts % (Manual) Lymphocytes % (Manual) Nucleated RBC % Seg Neutrophils # Seg Neutrophils # Man Lymphocytes # (Manual) Eosinophils # (Manual) INR D-Dimer ABG pH 7.319 L POC ABG pCO2 63.3 H 68.3 H POC ABG pO2 71.2 L 76.5 L ABG pO2 ABG HCO3 ABG O2 Saturation ABG Base Excess ABG Hemoglobin 8.2 L 7.0 L ABG Oxyhemoglobin 91.8 L 92.2 L ABG Sodium 134.6 L 133.0 L ABG Potassium 2.3 L 3.1 L ABG Chloride 96.0 L 95.0 L ABG Glucose 184 H 154 H Oxyhemoglobin Carboxyhemoglobin Sodium Potassium Chloride Carbon Dioxide BUN Creatinine Glucose POC Glucose 152 H Hemoglobin A1c Lactic Acid Calcium Phosphorus Magnesium Ferritin Total Bilirubin AST ALT Lactate Dehydrogenase C-Reactive Protein Albumin Triglycerides Arterial Blood Glucose 184 H 154 H Arterial Blood Ionized Calcium 3.6 L 3.5 L Urine Creatinine Coronavirus (PCR) Crossmatch 02/09/21 02/09/21 02/09/21 05:10 05:10 06:04 WBC RBC 2.14 L Hgb 7.0 L Hct 20.5 L MCV 96 H MCH 33 H MCHC RDW Plt Count Lymph % (Auto) Lymph # (Auto) Seg Neutrophils % Seg Neuts % (Manual) 82.0 H Lymphocytes % (Manual) 9.0 L Nucleated RBC % 1.0 H Seg Neutrophils # Seg Neutrophils # Man 8.9 H Lymphocytes # (Manual) 1.0 L Eosinophils # (Manual) INR D-Dimer ABG pH POC ABG pCO2 POC ABG pO2 ABG pO2 ABG HCO3 ABG O2 Saturation ABG Base Excess ABG Hemoglobin ABG Oxyhemoglobin ABG Sodium ABG Potassium ABG Chloride ABG Glucose Oxyhemoglobin Carboxyhemoglobin Sodium 135 L Potassium 3.2 L Chloride 91.0 L Carbon Dioxide 32 H BUN 54 H Creatinine 6.6 H Glucose 163 H POC Glucose 149 H Hemoglobin A1c Lactic Acid Calcium 6.2 L Phosphorus Magnesium Ferritin Total Bilirubin AST ALT Lactate Dehydrogenase C-Reactive Protein Albumin Triglycerides Arterial Blood Glucose Arterial Blood Ionized Calcium Urine Creatinine Coronavirus (PCR) Crossmatch 02/09/21 02/09/21 02/09/21 12:02 13:32 13:40 WBC RBC Hgb Hct MCV MCH MCHC RDW Plt Count Lymph % (Auto) Lymph # (Auto) Seg Neutrophils % Seg Neuts % (Manual) Lymphocytes % (Manual) Nucleated RBC % Seg Neutrophils # Seg Neutrophils # Man Lymphocytes # (Manual) Eosinophils # (Manual) INR D-Dimer ABG pH POC ABG pCO2 POC ABG pO2 ABG pO2 ABG HCO3 ABG O2 Saturation ABG Base Excess ABG Hemoglobin ABG Oxyhemoglobin ABG Sodium ABG Potassium ABG Chloride ABG Glucose Oxyhemoglobin Carboxyhemoglobin Sodium Potassium Chloride Carbon Dioxide BUN Creatinine Glucose POC Glucose 147 H Hemoglobin A1c Lactic Acid Calcium Phosphorus Magnesium Ferritin Total Bilirubin AST ALT Lactate Dehydrogenase C-Reactive Protein Albumin Triglycerides 250 H Arterial Blood Glucose Arterial Blood Ionized Calcium Urine Creatinine Coronavirus (PCR) Crossmatch See Detail 02/09/21 02/09/21 02/10/21 18:06 23:42 04:00 WBC RBC Hgb Hct MCV MCH MCHC RDW Plt Count Lymph % (Auto) Lymph # (Auto) Seg Neutrophils % Seg Neuts % (Manual) Lymphocytes % (Manual) Nucleated RBC % Seg Neutrophils # Seg Neutrophils # Man Lymphocytes # (Manual) Eosinophils # (Manual) INR D-Dimer ABG pH POC ABG pCO2 65.8 H POC ABG pO2 68.0 L ABG pO2 ABG HCO3 ABG O2 Saturation ABG Base Excess ABG Hemoglobin 8.3 L ABG Oxyhemoglobin ABG Sodium 132.4 L ABG Potassium 2.9 L ABG Chloride 92.0 L ABG Glucose 174 H Oxyhemoglobin Carboxyhemoglobin Sodium Potassium Chloride Carbon Dioxide BUN Creatinine Glucose POC Glucose 152 H 147 H Hemoglobin A1c Lactic Acid Calcium Phosphorus Magnesium Ferritin Total Bilirubin AST ALT Lactate Dehydrogenase C-Reactive Protein Albumin Triglycerides Arterial Blood Glucose 174 H Arterial Blood Ionized Calcium 3.4 L Urine Creatinine Coronavirus (PCR) Crossmatch 02/10/21 02/10/21 02/10/21 05:32 11:29 14:08 WBC 12.5 H RBC 2.14 L Hgb 6.6 L Hct 20.2 L MCV MCH MCHC RDW Plt Count Lymph % (Auto) Lymph # (Auto) Seg Neutrophils % Seg Neuts % (Manual) Lymphocytes % (Manual) Nucleated RBC % Seg Neutrophils # Seg Neutrophils # Man Lymphocytes # (Manual) Eosinophils # (Manual) INR D-Dimer ABG pH POC ABG pCO2 POC ABG pO2 ABG pO2 ABG HCO3 ABG O2 Saturation ABG Base Excess ABG Hemoglobin ABG Oxyhemoglobin ABG Sodium ABG Potassium ABG Chloride ABG Glucose Oxyhemoglobin Carboxyhemoglobin Sodium Potassium Chloride Carbon Dioxide BUN Creatinine Glucose POC Glucose 167 H 147 H Hemoglobin A1c Lactic Acid Calcium Phosphorus Magnesium Ferritin Total Bilirubin AST ALT Lactate Dehydrogenase C-Reactive Protein Albumin Triglycerides Arterial Blood Glucose Arterial Blood Ionized Calcium Urine Creatinine Coronavirus (PCR) Crossmatch 02/10/21 02/10/21 02/10/21 14:08 18:11 22:32 WBC RBC Hgb 6.4 L Hct 19.1 L* MCV MCH MCHC RDW Plt Count Lymph % (Auto) Lymph # (Auto) Seg Neutrophils % Seg Neuts % (Manual) Lymphocytes % (Manual) Nucleated RBC % Seg Neutrophils # Seg Neutrophils # Man Lymphocytes # (Manual) Eosinophils # (Manual) INR D-Dimer ABG pH POC ABG pCO2 POC ABG pO2 ABG pO2 ABG HCO3 ABG O2 Saturation ABG Base Excess ABG Hemoglobin ABG Oxyhemoglobin ABG Sodium ABG Potassium ABG Chloride ABG Glucose Oxyhemoglobin Carboxyhemoglobin Sodium 136 L Potassium 2.9 L* Chloride 90.2 L Carbon Dioxide 33 H BUN 42 H Creatinine 7.5 H Glucose 155 H POC Glucose 173 H Hemoglobin A1c Lactic Acid Calcium 6.1 L Phosphorus Magnesium Ferritin Total Bilirubin AST ALT Lactate Dehydrogenase C-Reactive Protein Albumin Triglycerides Arterial Blood Glucose Arterial Blood Ionized Calcium Urine Creatinine Coronavirus (PCR) Crossmatch 04/02/11/21 02/11/21 00:28 04:05 04:30 WBC RBC Hgb Hct MCV MCH MCHC RDW Plt Count Lymph % (Auto) Lymph # (Auto) Seg Neutrophils % Seg Neuts % (Manual) Lymphocytes % (Manual) Nucleated RBC % Seg Neutrophils # Seg Neutrophils # Man Lymphocytes # (Manual) Eosinophils # (Manual) INR D-Dimer ABG pH 7.307 L POC ABG pCO2 72.2 H POC ABG pO2 72.3 L ABG pO2 ABG HCO3 ABG O2 Saturation ABG Base Excess ABG Hemoglobin 8.2 L ABG Oxyhemoglobin ABG Sodium 132.3 L ABG Potassium 3.2 L ABG Chloride 91.0 L ABG Glucose 197 H Oxyhemoglobin Carboxyhemoglobin Sodium 135 L Potassium 3.3 L Chloride 87.1 L Carbon Dioxide 36 H BUN 71 H Creatinine 7.9 H Glucose 263 H POC Glucose 192 H Hemoglobin A1c Lactic Acid Calcium 6.2 L Phosphorus Magnesium Ferritin Total Bilirubin AST ALT Lactate Dehydrogenase C-Reactive Protein Albumin Triglycerides Arterial Blood Glucose 197 H Arterial Blood Ionized Calcium 3.3 L Urine Creatinine Coronavirus (PCR) Crossmatch 02/11/21 02/11/21 02/11/21 04:30 05:47 08:27 WBC RBC 2.22 L Hgb 7.2 L Hct 21.0 L MCV MCH MCHC RDW Plt Count Lymph % (Auto) 8.7 L Lymph # (Auto) 0.9 L Seg Neutrophils % 85.5 H Seg Neuts % (Manual) Lymphocytes % (Manual) Nucleated RBC % Seg Neutrophils # 9.2 H Seg Neutrophils # Man Lymphocytes # (Manual) Eosinophils # (Manual) INR 1.17 H D-Dimer 1930.92 H ABG pH POC ABG pCO2 POC ABG pO2 ABG pO2 ABG HCO3 ABG O2 Saturation ABG Base Excess ABG Hemoglobin ABG Oxyhemoglobin ABG Sodium ABG Potassium ABG Chloride ABG Glucose Oxyhemoglobin Carboxyhemoglobin Sodium Potassium Chloride Carbon Dioxide BUN Creatinine Glucose POC Glucose 189 H Hemoglobin A1c Lactic Acid Calcium Phosphorus Magnesium Ferritin Total Bilirubin AST ALT Lactate Dehydrogenase C-Reactive Protein Albumin Triglycerides Arterial Blood Glucose Arterial Blood Ionized Calcium Urine Creatinine Coronavirus (PCR) Crossmatch 02/11/21 02/11/21 02/11/21 09:00 09:00 13:18 WBC RBC Hgb Hct MCV MCH MCHC RDW Plt Count Lymph % (Auto) Lymph # (Auto) Seg Neutrophils % Seg Neuts % (Manual) Lymphocytes % (Manual) Nucleated RBC % Seg Neutrophils # Seg Neutrophils # Man Lymphocytes # (Manual) Eosinophils # (Manual) INR D-Dimer ABG pH POC ABG pCO2 POC ABG pO2 ABG pO2 ABG HCO3 ABG O2 Saturation ABG Base Excess ABG Hemoglobin ABG Oxyhemoglobin ABG Sodium ABG Potassium ABG Chloride ABG Glucose Oxyhemoglobin Carboxyhemoglobin Sodium Potassium Chloride Carbon Dioxide BUN Creatinine Glucose 126 H POC Glucose 160 H Hemoglobin A1c Lactic Acid Calcium Phosphorus Magnesium Ferritin 1253.0 H Total Bilirubin AST ALT Lactate Dehydrogenase 649 H C-Reactive Protein 12.60 H Albumin Triglycerides Arterial Blood Glucose Arterial Blood Ionized Calcium Urine Creatinine Coronavirus (PCR) Crossmatch 02/11/21 02/11/21 02/11/21 14:30 16:59 22:34 WBC RBC Hgb 7.1 L 6.7 L Hct 20.5 L 19.9 L* MCV MCH MCHC RDW Plt Count Lymph % (Auto) Lymph # (Auto) Seg Neutrophils % Seg Neuts % (Manual) Lymphocytes % (Manual) Nucleated RBC % Seg Neutrophils # Seg Neutrophils # Man Lymphocytes # (Manual) Eosinophils # (Manual) INR D-Dimer ABG pH POC ABG pCO2 POC ABG pO2 ABG pO2 ABG HCO3 ABG O2 Saturation ABG Base Excess ABG Hemoglobin ABG Oxyhemoglobin ABG Sodium ABG Potassium ABG Chloride ABG Glucose Oxyhemoglobin Carboxyhemoglobin Sodium Potassium Chloride Carbon Dioxide BUN Creatinine Glucose POC Glucose 151 H Hemoglobin A1c Lactic Acid Calcium Phosphorus Magnesium Ferritin Total Bilirubin AST ALT Lactate Dehydrogenase C-Reactive Protein Albumin Triglycerides Arterial Blood Glucose Arterial Blood Ionized Calcium Urine Creatinine Coronavirus (PCR) Crossmatch 02/11/21 02/12/21 02/12/21 23:42 04:41 05:19 WBC RBC Hgb Hct MCV MCH MCHC RDW Plt Count Lymph % (Auto) Lymph # (Auto) Seg Neutrophils % Seg Neuts % (Manual) Lymphocytes % (Manual) Nucleated RBC % Seg Neutrophils # Seg Neutrophils # Man Lymphocytes # (Manual) Eosinophils # (Manual) INR D-Dimer ABG pH POC ABG pCO2 POC ABG pO2 ABG pO2 69.0 L ABG HCO3 32.5 H ABG O2 Saturation ABG Base Excess 7.7 H ABG Hemoglobin 5.1 L ABG Oxyhemoglobin ABG Sodium ABG Potassium ABG Chloride ABG Glucose Oxyhemoglobin 94.7 L Carboxyhemoglobin Sodium Potassium Chloride Carbon Dioxide BUN Creatinine Glucose POC Glucose 165 H 153 H Hemoglobin A1c Lactic Acid Calcium Phosphorus Magnesium Ferritin Total Bilirubin AST ALT Lactate Dehydrogenase C-Reactive Protein Albumin Triglycerides Arterial Blood Glucose Arterial Blood Ionized Calcium Urine Creatinine Coronavirus (PCR) Crossmatch 02/12/21 02/12/21 02/12/21 06:35 06:35 08:40 WBC RBC 2.21 L Hgb 7.2 L Hct 20.7 L MCV MCH 33 H MCHC 35 H RDW Plt Count Lymph % (Auto) Lymph # (Auto) Seg Neutrophils % Seg Neuts % (Manual) Lymphocytes % (Manual) Nucleated RBC % Seg Neutrophils # Seg Neutrophils # Man Lymphocytes # (Manual) Eosinophils # (Manual) INR D-Dimer ABG pH POC ABG pCO2 POC ABG pO2 ABG pO2 ABG HCO3 ABG O2 Saturation ABG Base Excess ABG Hemoglobin ABG Oxyhemoglobin ABG Sodium ABG Potassium ABG Chloride ABG Glucose Oxyhemoglobin Carboxyhemoglobin Sodium 135 L Potassium 3.4 L Chloride 91.8 L Carbon Dioxide 36 H BUN 57 H Creatinine 6.8 H Glucose 163 H POC Glucose Hemoglobin A1c Lactic Acid Calcium 7.0 L Phosphorus Magnesium 1.60 L Ferritin Total Bilirubin AST ALT Lactate Dehydrogenase C-Reactive Protein Albumin Triglycerides Arterial Blood Glucose Arterial Blood Ionized Calcium Urine Creatinine Coronavirus (PCR) Crossmatch 02/12/21 02/12/21 02/12/21 10:45 12:04 17:19 WBC RBC Hgb Hct MCV MCH MCHC RDW Plt Count Lymph % (Auto) Lymph # (Auto) Seg Neutrophils % Seg Neuts % (Manual) Lymphocytes % (Manual) Nucleated RBC % Seg Neutrophils # Seg Neutrophils # Man Lymphocytes # (Manual) Eosinophils # (Manual) INR D-Dimer ABG pH POC ABG pCO2 POC ABG pO2 ABG pO2 ABG HCO3 ABG O2 Saturation ABG Base Excess ABG Hemoglobin ABG Oxyhemoglobin ABG Sodium ABG Potassium ABG Chloride ABG Glucose Oxyhemoglobin Carboxyhemoglobin Sodium Potassium Chloride Carbon Dioxide BUN Creatinine Glucose POC Glucose 165 H 165 H Hemoglobin A1c Lactic Acid Calcium Phosphorus Magnesium Ferritin Total Bilirubin AST ALT Lactate Dehydrogenase C-Reactive Protein Albumin Triglycerides 182 H Arterial Blood Glucose Arterial Blood Ionized Calcium Urine Creatinine Coronavirus (PCR) Crossmatch 02/12/21 02/13/2121 23:18 05:00 05:36 WBC RBC Hgb Hct MCV MCH MCHC RDW Plt Count Lymph % (Auto) Lymph # (Auto) Seg Neutrophils % Seg Neuts % (Manual) Lymphocytes % (Manual) Nucleated RBC % Seg Neutrophils # Seg Neutrophils # Man Lymphocytes # (Manual) Eosinophils # (Manual) INR D-Dimer ABG pH POC ABG pCO2 60.8 H POC ABG pO2 76.4 L ABG pO2 ABG HCO3 ABG O2 Saturation ABG Base Excess ABG Hemoglobin 7.4 L ABG Oxyhemoglobin ABG Sodium 133.2 L ABG Potassium 3.3 L ABG Chloride 96.0 L ABG Glucose 168 H Oxyhemoglobin Carboxyhemoglobin Sodium Potassium Chloride Carbon Dioxide BUN Creatinine Glucose POC Glucose 163 H 151 H Hemoglobin A1c Lactic Acid Calcium Phosphorus Magnesium Ferritin Total Bilirubin AST ALT Lactate Dehydrogenase C-Reactive Protein Albumin Triglycerides Arterial Blood Glucose 168 H Arterial Blood Ionized Calcium 4.3 L Urine Creatinine Coronavirus (PCR) Crossmatch 02/13/21 02/13/21 02/13/21 06:40 06:40 06:40 WBC RBC 2.19 L Hgb 7.0 L Hct 20.8 L MCV 95 H MCH MCHC RDW Plt Count Lymph % (Auto) Lymph # (Auto) Seg Neutrophils % Seg Neuts % (Manual) Lymphocytes % (Manual) Nucleated RBC % Seg Neutrophils # Seg Neutrophils # Man Lymphocytes # (Manual) Eosinophils # (Manual) INR D-Dimer ABG pH POC ABG pCO2 POC ABG pO2 ABG pO2 ABG HCO3 ABG O2 Saturation ABG Base Excess ABG Hemoglobin ABG Oxyhemoglobin ABG Sodium ABG Potassium ABG Chloride ABG Glucose Oxyhemoglobin Carboxyhemoglobin Sodium 135 L Potassium 3.4 L Chloride 93.0 L Carbon Dioxide 32 H BUN 46 H Creatinine 5.8 H Glucose 148 H POC Glucose Hemoglobin A1c Lactic Acid Calcium 7.9 L Phosphorus Magnesium Ferritin Total Bilirubin AST ALT Lactate Dehydrogenase C-Reactive Protein 16.80 H Albumin Triglycerides Arterial Blood Glucose Arterial Blood Ionized Calcium Urine Creatinine Coronavirus (PCR) Crossmatch 02/13/21 02/13/21 02/13/21 06:40 07:38 07:38 WBC RBC Hgb Hct MCV MCH MCHC RDW Plt Count Lymph % (Auto) Lymph # (Auto) Seg Neutrophils % Seg Neuts % (Manual) Lymphocytes % (Manual) Nucleated RBC % Seg Neutrophils # Seg Neutrophils # Man Lymphocytes # (Manual) Eosinophils # (Manual) INR D-Dimer 1722.16 H ABG pH POC ABG pCO2 POC ABG pO2 ABG pO2 ABG HCO3 ABG O2 Saturation ABG Base Excess ABG Hemoglobin ABG Oxyhemoglobin ABG Sodium ABG Potassium ABG Chloride ABG Glucose Oxyhemoglobin Carboxyhemoglobin Sodium Potassium Chloride Carbon Dioxide BUN Creatinine Glucose POC Glucose Hemoglobin A1c Lactic Acid Calcium Phosphorus Magnesium 1.60 L Ferritin 976.5 H Total Bilirubin AST ALT Lactate Dehydrogenase C-Reactive Protein Albumin Triglycerides Arterial Blood Glucose Arterial Blood Ionized Calcium Urine Creatinine Coronavirus (PCR) Crossmatch 02/13/21 02/13/21 02/13/21 12:24 16:57 23:32 WBC RBC Hgb Hct MCV MCH MCHC RDW Plt Count Lymph % (Auto) Lymph # (Auto) Seg Neutrophils % Seg Neuts % (Manual) Lymphocytes % (Manual) Nucleated RBC % Seg Neutrophils # Seg Neutrophils # Man Lymphocytes # (Manual) Eosinophils # (Manual) INR D-Dimer ABG pH POC ABG pCO2 POC ABG pO2 ABG pO2 ABG HCO3 ABG O2 Saturation ABG Base Excess ABG Hemoglobin ABG Oxyhemoglobin ABG Sodium ABG Potassium ABG Chloride ABG Glucose Oxyhemoglobin Carboxyhemoglobin Sodium Potassium Chloride Carbon Dioxide BUN Creatinine Glucose POC Glucose 141 H 156 H 161 H Hemoglobin A1c Lactic Acid Calcium Phosphorus Magnesium Ferritin Total Bilirubin AST ALT Lactate Dehydrogenase C-Reactive Protein Albumin Triglycerides Arterial Blood Glucose Arterial Blood Ionized Calcium Urine Creatinine Coronavirus (PCR) Crossmatch 02/14/21 02/14/21 02/14/21 04:00 05:41 11:00 WBC RBC 2.14 L Hgb 6.9 L Hct 20.7 L MCV 97 H MCH 33 H MCHC RDW Plt Count Lymph % (Auto) Lymph # (Auto) Seg Neutrophils % Seg Neuts % (Manual) Lymphocytes % (Manual) Nucleated RBC % Seg Neutrophils # Seg Neutrophils # Man Lymphocytes # (Manual) Eosinophils # (Manual) INR D-Dimer ABG pH POC ABG pCO2 POC ABG pO2 ABG pO2 ABG HCO3 ABG O2 Saturation ABG Base Excess ABG Hemoglobin ABG Oxyhemoglobin ABG Sodium ABG Potassium ABG Chloride ABG Glucose Oxyhemoglobin Carboxyhemoglobin Sodium Potassium Chloride Carbon Dioxide BUN Creatinine Glucose POC Glucose 143 H Hemoglobin A1c Lactic Acid Calcium Phosphorus Magnesium Ferritin Total Bilirubin AST ALT Lactate Dehydrogenase C-Reactive Protein Albumin Triglycerides Arterial Blood Glucose Arterial Blood Ionized Calcium Urine Creatinine Coronavirus (PCR) Crossmatch See Detail 02/14/21 02/14/21 02/14/21 11:51 18:08 23:41 WBC RBC Hgb Hct MCV MCH MCHC RDW Plt Count Lymph % (Auto) Lymph # (Auto) Seg Neutrophils % Seg Neuts % (Manual) Lymphocytes % (Manual) Nucleated RBC % Seg Neutrophils # Seg Neutrophils # Man Lymphocytes # (Manual) Eosinophils # (Manual) INR D-Dimer ABG pH POC ABG pCO2 POC ABG pO2 ABG pO2 ABG HCO3 ABG O2 Saturation ABG Base Excess ABG Hemoglobin ABG Oxyhemoglobin ABG Sodium ABG Potassium ABG Chloride ABG Glucose Oxyhemoglobin Carboxyhemoglobin Sodium Potassium Chloride Carbon Dioxide BUN Creatinine Glucose POC Glucose 113 H 123 H 120 H Hemoglobin A1c Lactic Acid Calcium Phosphorus Magnesium Ferritin Total Bilirubin AST ALT Lactate Dehydrogenase C-Reactive Protein Albumin Triglycerides Arterial Blood Glucose Arterial Blood Ionized Calcium Urine Creatinine Coronavirus (PCR) Crossmatch 02/14/21 02/15/21 02/15/21 Unknown 05:00 05:00 WBC RBC Hgb Hct MCV MCH MCHC RDW Plt Count Lymph % (Auto) Lymph # (Auto) Seg Neutrophils % Seg Neuts % (Manual) Lymphocytes % (Manual) Nucleated RBC % Seg Neutrophils # Seg Neutrophils # Man Lymphocytes # (Manual) Eosinophils # (Manual) INR D-Dimer ABG pH POC ABG pCO2 53.4 H POC ABG pO2 61.8 L ABG pO2 ABG HCO3 ABG O2 Saturation ABG Base Excess ABG Hemoglobin 7.7 L ABG Oxyhemoglobin 88.8 L ABG Sodium ABG Potassium ABG Chloride ABG Glucose 143 H Oxyhemoglobin Carboxyhemoglobin 1.6 H Sodium Potassium Chloride 96.9 L Carbon Dioxide 33 H 31 H BUN 40 H 38 H Creatinine 5.2 H 4.8 H Glucose 152 H 132 H POC Glucose Hemoglobin A1c Lactic Acid Calcium 7.9 L Phosphorus Magnesium Ferritin Total Bilirubin AST ALT Lactate Dehydrogenase C-Reactive Protein Albumin Triglycerides Arterial Blood Glucose 143 H Arterial Blood Ionized Calcium Urine Creatinine Coronavirus (PCR) Crossmatch 02/15/21 02/15/21 02/15/21 05:00 05:27 12:05 WBC RBC 2.30 L Hgb 7.1 L Hct 22.1 L MCV 96 H MCH MCHC RDW 15.7 H Plt Count Lymph % (Auto) 11.0 L Lymph # (Auto) 1.1 L Seg Neutrophils % 83.0 H Seg Neuts % (Manual) Lymphocytes % (Manual) Nucleated RBC % Seg Neutrophils # 8.6 H Seg Neutrophils # Man Lymphocytes # (Manual) Eosinophils # (Manual) INR D-Dimer ABG pH POC ABG pCO2 POC ABG pO2 ABG pO2 ABG HCO3 ABG O2 Saturation ABG Base Excess ABG Hemoglobin ABG Oxyhemoglobin ABG Sodium ABG Potassium ABG Chloride ABG Glucose Oxyhemoglobin Carboxyhemoglobin Sodium Potassium Chloride Carbon Dioxide BUN Creatinine Glucose POC Glucose 133 H 123 H Hemoglobin A1c Lactic Acid Calcium Phosphorus Magnesium Ferritin Total Bilirubin AST ALT Lactate Dehydrogenase C-Reactive Protein Albumin Triglycerides Arterial Blood Glucose Arterial Blood Ionized Calcium Urine Creatinine Coronavirus (PCR) Crossmatch 02/15/21 02/15/21 02/16/21 17:08 23:52 03:44 WBC RBC Hgb Hct MCV MCH MCHC RDW Plt Count Lymph % (Auto) Lymph # (Auto) Seg Neutrophils % Seg Neuts % (Manual) Lymphocytes % (Manual) Nucleated RBC % Seg Neutrophils # Seg Neutrophils # Man Lymphocytes # (Manual) Eosinophils # (Manual) INR D-Dimer ABG pH 7.307 L POC ABG pCO2 59.5 H POC ABG pO2 63.2 L ABG pO2 ABG HCO3 ABG O2 Saturation ABG Base Excess ABG Hemoglobin 9.3 L ABG Oxyhemoglobin ABG Sodium ABG Potassium ABG Chloride ABG Glucose 148 H Oxyhemoglobin Carboxyhemoglobin Sodium Potassium Chloride Carbon Dioxide BUN Creatinine Glucose POC Glucose 129 H 136 H Hemoglobin A1c Lactic Acid Calcium Phosphorus Magnesium Ferritin Total Bilirubin AST ALT Lactate Dehydrogenase C-Reactive Protein Albumin Triglycerides Arterial Blood Glucose 148 H Arterial Blood Ionized Calcium Urine Creatinine Coronavirus (PCR) Crossmatch 02/16/21 02/16/21 02/16/21 05:26 06:00 12:14 WBC RBC Hgb Hct MCV MCH MCHC RDW Plt Count Lymph % (Auto) Lymph # (Auto) Seg Neutrophils % Seg Neuts % (Manual) Lymphocytes % (Manual) Nucleated RBC % Seg Neutrophils # Seg Neutrophils # Man Lymphocytes # (Manual) Eosinophils # (Manual) INR D-Dimer ABG pH POC ABG pCO2 POC ABG pO2 ABG pO2 ABG HCO3 ABG O2 Saturation ABG Base Excess ABG Hemoglobin ABG Oxyhemoglobin ABG Sodium ABG Potassium ABG Chloride ABG Glucose Oxyhemoglobin Carboxyhemoglobin Sodium Potassium Chloride Carbon Dioxide BUN 52 H Creatinine 6.0 H Glucose 138 H POC Glucose 135 H 128 H Hemoglobin A1c Lactic Acid Calcium Phosphorus Magnesium Ferritin Total Bilirubin AST ALT Lactate Dehydrogenase C-Reactive Protein Albumin Triglycerides Arterial Blood Glucose Arterial Blood Ionized Calcium Urine Creatinine Coronavirus (PCR) Crossmatch 02/16/21 02/16/21 02/16/21 17:09 17:09 17:09 WBC RBC Hgb Hct MCV MCH MCHC RDW Plt Count Lymph % (Auto) Lymph # (Auto) Seg Neutrophils % Seg Neuts % (Manual) Lymphocytes % (Manual) Nucleated RBC % Seg Neutrophils # Seg Neutrophils # Man Lymphocytes # (Manual) Eosinophils # (Manual) INR D-Dimer 4256.08 H ABG pH POC ABG pCO2 POC ABG pO2 ABG pO2 ABG HCO3 ABG O2 Saturation ABG Base Excess ABG Hemoglobin ABG Oxyhemoglobin ABG Sodium ABG Potassium ABG Chloride ABG Glucose Oxyhemoglobin Carboxyhemoglobin Sodium Potassium Chloride Carbon Dioxide BUN Creatinine Glucose POC Glucose Hemoglobin A1c Lactic Acid Calcium Phosphorus Magnesium Ferritin 980.6 H Total Bilirubin AST ALT Lactate Dehydrogenase 441 H C-Reactive Protein 20.20 H Albumin Triglycerides Arterial Blood Glucose Arterial Blood Ionized Calcium Urine Creatinine Coronavirus (PCR) Crossmatch 02/16/21 02/16/21 02/16/21 17:25 23:16 Unknown WBC RBC 2.19 L Hgb 7.1 L Hct 21.3 L MCV 98 H MCH 33 H MCHC RDW 16.0 H Plt Count Lymph % (Auto) Lymph # (Auto) Seg Neutrophils % Seg Neuts % (Manual) 85.0 H Lymphocytes % (Manual) 6.0 L Nucleated RBC % 4.0 H Seg Neutrophils # Seg Neutrophils # Man Lymphocytes # (Manual) 0.5 L Eosinophils # (Manual) INR D-Dimer ABG pH POC ABG pCO2 POC ABG pO2 ABG pO2 ABG HCO3 ABG O2 Saturation ABG Base Excess ABG Hemoglobin ABG Oxyhemoglobin ABG Sodium ABG Potassium ABG Chloride ABG Glucose Oxyhemoglobin Carboxyhemoglobin Sodium Potassium Chloride Carbon Dioxide BUN Creatinine Glucose POC Glucose 146 H 150 H Hemoglobin A1c Lactic Acid Calcium Phosphorus Magnesium Ferritin Total Bilirubin AST ALT Lactate Dehydrogenase C-Reactive Protein Albumin Triglycerides Arterial Blood Glucose Arterial Blood Ionized Calcium Urine Creatinine Coronavirus (PCR) Crossmatch 02/17/21 02/17/21 02/17/21 04:00 04:14 04:14 WBC RBC Hgb Hct MCV MCH MCHC RDW Plt Count Lymph % (Auto) Lymph # (Auto) Seg Neutrophils % Seg Neuts % (Manual) Lymphocytes % (Manual) Nucleated RBC % Seg Neutrophils # Seg Neutrophils # Man Lymphocytes # (Manual) Eosinophils # (Manual) INR D-Dimer 3183.35 H ABG pH 7.293 L POC ABG pCO2 59.5 H POC ABG pO2 68.1 L ABG pO2 ABG HCO3 ABG O2 Saturation ABG Base Excess ABG Hemoglobin 7.7 L ABG Oxyhemoglobin ABG Sodium 133.4 L ABG Potassium ABG Chloride ABG Glucose 143 H Oxyhemoglobin Carboxyhemoglobin Sodium 136 L Potassium Chloride 97.3 L Carbon Dioxide BUN 49 H Creatinine 5.3 H Glucose 139 H POC Glucose Hemoglobin A1c Lactic Acid Calcium Phosphorus Magnesium Ferritin Total Bilirubin AST ALT Lactate Dehydrogenase C-Reactive Protein Albumin Triglycerides Arterial Blood Glucose 143 H Arterial Blood Ionized Calcium Urine Creatinine Coronavirus (PCR) Crossmatch 02/17/21 02/17/21 02/17/21 04:14 04:14 04:14 WBC RBC 2.14 L Hgb 6.9 L Hct 21.0 L MCV 98 H MCH MCHC RDW 15.8 H Plt Count Lymph % (Auto) Lymph # (Auto) Seg Neutrophils % Seg Neuts % (Manual) Lymphocytes % (Manual) Nucleated RBC % Seg Neutrophils # Seg Neutrophils # Man Lymphocytes # (Manual) Eosinophils # (Manual) INR D-Dimer ABG pH POC ABG pCO2 POC ABG pO2 ABG pO2 ABG HCO3 ABG O2 Saturation ABG Base Excess ABG Hemoglobin ABG Oxyhemoglobin ABG Sodium ABG Potassium ABG Chloride ABG Glucose Oxyhemoglobin Carboxyhemoglobin Sodium Potassium Chloride Carbon Dioxide BUN Creatinine Glucose POC Glucose Hemoglobin A1c Lactic Acid Calcium Phosphorus Magnesium Ferritin 894.0 H Total Bilirubin AST ALT Lactate Dehydrogenase 399 H C-Reactive Protein 22.10 H Albumin Triglycerides Arterial Blood Glucose Arterial Blood Ionized Calcium Urine Creatinine Coronavirus (PCR) Crossmatch 02/17/21 02/17/21 02/17/21 06:06 07:45 12:25 WBC RBC Hgb 7.6 L Hct 22.8 L MCV MCH MCHC RDW Plt Count Lymph % (Auto) Lymph # (Auto) Seg Neutrophils % Seg Neuts % (Manual) Lymphocytes % (Manual) Nucleated RBC % Seg Neutrophils # Seg Neutrophils # Man Lymphocytes # (Manual) Eosinophils # (Manual) INR D-Dimer ABG pH POC ABG pCO2 POC ABG pO2 ABG pO2 ABG HCO3 ABG O2 Saturation ABG Base Excess ABG Hemoglobin ABG Oxyhemoglobin ABG Sodium ABG Potassium ABG Chloride ABG Glucose Oxyhemoglobin Carboxyhemoglobin Sodium Potassium Chloride Carbon Dioxide BUN Creatinine Glucose POC Glucose 134 H Hemoglobin A1c Lactic Acid Calcium Phosphorus Magnesium Ferritin Total Bilirubin AST ALT Lactate Dehydrogenase C-Reactive Protein Albumin Triglycerides Arterial Blood Glucose Arterial Blood Ionized Calcium Urine Creatinine Coronavirus (PCR) Crossmatch See Detail 02/17/21 02/17/21 02/17/21 12:35 17:56 23:34 WBC RBC Hgb Hct MCV MCH MCHC RDW Plt Count Lymph % (Auto) Lymph # (Auto) Seg Neutrophils % Seg Neuts % (Manual) Lymphocytes % (Manual) Nucleated RBC % Seg Neutrophils # Seg Neutrophils # Man Lymphocytes # (Manual) Eosinophils # (Manual) INR D-Dimer ABG pH POC ABG pCO2 POC ABG pO2 ABG pO2 ABG HCO3 ABG O2 Saturation ABG Base Excess ABG Hemoglobin ABG Oxyhemoglobin ABG Sodium ABG Potassium ABG Chloride ABG Glucose Oxyhemoglobin Carboxyhemoglobin Sodium Potassium Chloride Carbon Dioxide BUN Creatinine Glucose POC Glucose 114 H 128 H 120 H Hemoglobin A1c Lactic Acid Calcium Phosphorus Magnesium Ferritin Total Bilirubin AST ALT Lactate Dehydrogenase C-Reactive Protein Albumin Triglycerides Arterial Blood Glucose Arterial Blood Ionized Calcium Urine Creatinine Coronavirus (PCR) Crossmatch 02/18/21 02/18/21 02/18/21 04:03 04:55 05:02 WBC RBC 2.40 L Hgb 7.5 L Hct 23.1 L MCV 96 H MCH MCHC RDW 16.8 H Plt Count Lymph % (Auto) Lymph # (Auto) Seg Neutrophils % Seg Neuts % (Manual) Lymphocytes % (Manual) Nucleated RBC % Seg Neutrophils # Seg Neutrophils # Man Lymphocytes # (Manual) Eosinophils # (Manual) INR D-Dimer ABG pH 7.219 L POC ABG pCO2 58.7 H POC ABG pO2 64.2 L ABG pO2 ABG HCO3 ABG O2 Saturation ABG Base Excess ABG Hemoglobin ABG Oxyhemoglobin ABG Sodium 130.5 L ABG Potassium ABG Chloride ABG Glucose 147 H Oxyhemoglobin Carboxyhemoglobin Sodium 134 L Potassium Chloride 97.9 L Carbon Dioxide BUN 64 H Creatinine 6.5 H Glucose 135 H POC Glucose Hemoglobin A1c Lactic Acid Calcium 8.0 L Phosphorus Magnesium Ferritin Total Bilirubin AST ALT Lactate Dehydrogenase C-Reactive Protein Albumin Triglycerides Arterial Blood Glucose 147 H Arterial Blood Ionized Calcium Urine Creatinine Coronavirus (PCR) Crossmatch 02/18/21 02/18/21 05:27 11:51 WBC RBC Hgb Hct MCV MCH MCHC RDW Plt Count Lymph % (Auto) Lymph # (Auto) Seg Neutrophils % Seg Neuts % (Manual) Lymphocytes % (Manual) Nucleated RBC % Seg Neutrophils # Seg Neutrophils # Man Lymphocytes # (Manual) Eosinophils # (Manual) INR D-Dimer ABG pH POC ABG pCO2 POC ABG pO2 ABG pO2 ABG HCO3 ABG O2 Saturation ABG Base Excess ABG Hemoglobin ABG Oxyhemoglobin ABG Sodium ABG Potassium ABG Chloride ABG Glucose Oxyhemoglobin Carboxyhemoglobin Sodium Potassium Chloride Carbon Dioxide BUN Creatinine Glucose POC Glucose 130 H 123 H Hemoglobin A1c Lactic Acid Calcium Phosphorus Magnesium Ferritin Total Bilirubin AST ALT Lactate Dehydrogenase C-Reactive Protein Albumin Triglycerides Arterial Blood Glucose Arterial Blood Ionized Calcium Urine Creatinine Coronavirus (PCR) Crossmatch
[2021-02-18] MEDS: LANSOPRAZOLE 30 MG SOLUTAB FEEDTUBE SCH (17:34)
--- NOTE | 2021-02-18 17:47 | Progress Note ---
<CARMENBRENDALourdes - Last Filed: 02/18/21 17:45> Assessment and Plan Assessment and plan: This is a 60-year-old male with diabetes mellitus, hypertension, hyperlipidemia, chronic renal insufficiency who was admitted on 01/23 as a COVID-19 PUI with Sepsis, COVID-19 pneumonia, coag negative staph bacteremia, acute hypoxic r espiratory failure, and acute kidney injury. Sepsis COVID-19 pneumonia Coag-neg Staph bacteremia Acute hypoxic respiratory failure Acute kidney injury, HD initiated 02/03 Anemia Hyponatremia Hypochloremia Diabetes mellitus Hypertension Hyperlipidemia Chronic renal insufficiency Elevated D-dimer -CCM, nephrology, infectious disease, GI consulted, appreciate recommendations -s/p Antibiotic therapy, remdesivir -COVID-19 PCR positive, Pneumonia on CXR -Steroid therapy -Mechanical ventilation, wean as tolerated -VAP bundle -HD per nephrology -S/p 4 units PRBC during stay -Trend BMP, CBC, COVID-19 inflammatory markers -Bilateral lower extremity and upper extremity Doppler ultrasound negative for DVT/SVT -Therapeutic Lovenox discontinued on 02/13 due to positive occult -SSI and Long-acting insulin -Accu-Cheks every 6 while on tube feedings -Hold home antihypertensive regimen for now as he is still needing vasopressor support -Blood pressure monitoring per protocol -S/p NaHCO3 gtt -02/17 CT head showed no acute intracranial abnormality, paranasal sinus disease DVT/GI prophylaxis: SCDs to bilateral lower extremities while in bed, PPI, avoid chemical anticoagulation in setting of GI bleed Dispo: ICU The high probability of a clinically significant, sudden or life threatening deterioration of the [multi] system(s) required my full and direct attention, intervention and personal management. The aggregate critical care time was [32] minutes. This time is in addition to time spent performing reported procedures but includes the following: [x] Data Review and interpretation [x] Patient assessment and monitoring of vital signs [x] Documentation [x] Medication orders and management History Interval history: This is a 60-year-old male with diabetes mellitus, hypertension, hyperlipidemia, chronic renal insufficiency presents to the emergency department on 01/23 with shortness of breath, fevers chills, loss of smell and taste and body aches for the past 3 days via EMS. Per EMS patient's oxygen saturation on room air was 50% and after being placed on nonrebreather it increased 75%. Upon arrival to the emergency department patient was being bagged by EMS. In the emergency room patient was intubated due to severe hypoxia, increased work of breathing and lethargy. Patient was sedated on propofol and fentanyl. Patient presented with fever, tachycardia, tachypnea and acute hypoxic respiratory failure with PNA on CXR meeting Sepsis criteria. Lab work in the emergency department revealed hyponatremia, hypokalemia, hypochloremia, elevated CR/BUN and CXR showed bilateral pneumonia. Patient was admitted to the hospital service as a COVID-19 PUI with consults to infectious disease, nephrology and critical care medicine. 01/24/2021: Patient is intubated and sedated, patient is positive for COVID-19 infection. ID was consulted and put on dexamethasone and remdesivir. Patient has DEISI and nephrology is following. Creatinine stable, patient is urinating. Discussed with nephrology and he is okay with remdesivir. Pulmonary critical care is following for his vent setting. PEEP of 8 and FiO2 of 85%. Patient was alert and off sedatives. 01/25/2021; patient is intubated and on mechanical ventilation. Continue with t reatment of Covid. Nephrology and ID is following. Pulmonary is following for vent management 01/26: Remains on mechanical ventilation and [facility] increased his PEEP. [facility] has ordered Precedex for sedation. Possibly need to prone this p.m. No acute events reported overnight. This morning his D-dimer is greater than 10,000 and we have started him on Lovenox 120 mg daily. Nutrition has been consulted for initiation of tube feedings. Patient remains sedated on propofol 40 and fentanyl for the time my examination this morning. 01/27: Continue Lovenox, remdesivir and empiric antibiotics. Patient had a T-max of 101 overnight. The time of examination patient is on CMV 500/18/14/0.61. Kidney function slightly worsened. Sedated on fentanyl ground-level fall and Precedex. Nephrology has increased IV fluids to 100 ml/hr. Continue to trend BMP and CBC. Sedation vacation attempt by RN this AM. 01/28: Patient completed antibiotics today [facility] will paralyze patient and increase sedation. PICC line ordered for possible vasopressor therapy need. Patient's D-dimer remains greater than 10,000 and he still has hyperchloremia. Patient's kidney function has improved today. May need to prone the patient if no improvement in oxygenation is noted in the next 24 hours. The time of my examination patient is sedated with propofol, fentanyl and Precedex and is on assist control 500/18/16/0.80 hypoxic on ABG on 60% FiO2. 01/29: Patient was started on Nimbex yesterday and his ABG this morning showed respiratory acidosis with hypercapnia and his respiratory rate was increased. We will obtain a repeat ABG this afternoon. This morning patient is hypernatremic, hyperkalemic and hyperchloremic. His potassium has been corrected with the management and will obtain repeat BMP tomorrow. His kidney functions have remained stable and we will await nephrology's input. No acute events reported overnight. This morning the time my examination patient sedated with propofol, Precedex and fentanyl and paralyzed with Nimbex. He is on assist control 500/24/16 0.80. 01/30: This morning patient is hypokalemic again and was given Kayexalate. Patient has hypernatremia and hyper chloremia and his renal function is slightly worse after receiving Lasix yesterday. His D-dimer remains greater than 10,000 and he is still on a paralytic. Patient is sedated on Precedex, fentanyl, propofol. Mechanical ventilation settings seven-point /61/28. [facility] has decided to continue paralytics for 48 more hours and will attempt proning the patient. Increased free water flushes 300 cc every 4 hours. Patient states has restarted his antibiotics cefepime and vancomycin and recultured. 01/31/21 Hyperkalemia, Treated 02/01/21 Hyperkalemia, Treated 02/02: Patient's kidney function continues to worsen and a stat BMP this morning shows BUN/creatinine 20/6.1 and he remains hypocalcemic and hypernatremic, hypokalemic and hypochloremic. Patient received 2 g of calcium gluconate and Kayexalate and his repeat potassium was 4.3 this afternoon. He remains antibiotic therapy and steroids. Nephrology has placed the patient on bicarb drip given metabolic acidosis and has decided to hold off hemodialysis till tomorrow.The time my examination patient is sedated on fentanyl, Precedex and on assist control 500/20/12/0.70. s/p paralytic. 02/03: Today patient's ABG shows respiratory acidosis however it is improving, h ypernatremia, hyperchloremia, metabolic acidosis on BMP, worsening kidney function BUN/creatinine 130/9.2 with hyperphosphatemia. Patient received a Vas- Cath to his right IJ for initiation of dialysis. At the time of my examination patient remains sedated on fentanyl, propofol and Precedex with vasopressor support with Levophed at 2. 02/04: At the time of examination patient was on assist control tidal volume 500, rate 40, PEEP of 12, FiO2 85%. Patient had a T-max of 100.9 and infectious dise ase has stopped his vancomycin given negative MRSA. This afternoon patient respiked his temperature and was pancultured again. Patient was started on hemodialysis yesterday and will receive HD again today. Patient is sedated on Precedex, propofol, fentanyl and remains on Levophed. He is on assist control tidal volume 500, rate of 30, PEEP of 12, FiO2 of 85%. Patient still has some respiratory acidosis however his hypernatremia and hyperchloremia have improved and his metabolic acidosis has resolved. Patient will receive hemodialysis today 02/05: Patient continues to have low-grade fever temp this morning time examination he was on assist control tidal volume 500, and sedated on propofol/ fentanyl/Precedex and is on Levophed. Hemodialysis per nephrology. Antibiotics per ID. Patient's blood culture from 02/04 grew gram-positive cocci in clusters in 1/2 bottles and he was started on vancomycin. 02/06: Patients ABG showed respiratory acidosis and the tracings were changed however a repeat ABG showed showed acidosis.[facility] will start a bicarb drip after giving 2 amps of bicarb push. Yesterday patient blood cultures grew gram- positive cocci and he was started on vancomycin. At the time my examination patient was on assist control tidal volume 550, rate 34, PEEP 16, FiO2 90% and sedated on fentanyl, Precedex, propofol elevated pressure support with Levophed. Bilateral lower extremity Doppler ultrasounds done yesterday showed no evidence of DVT/SVT. 02/07/2021; patient is still on the vent with PEEP of 16 and FiO2 of 90%, sedated with fentanyl Precedex and propofol. Patient still requiring Levophed. Patient was sedated yesterday and was given bicarb push. Blood culture grew gram-positive cocci in clusters and he is on vancomycin, will follow identification. 02/08/2021;patient is still on the vent with PEEP of 16 and FiO2 of 90%, sedated with fentanyl Precedex and propofol. Patient still requiring Levophed. Patient was sedated yesterday and was given bicarb push. Blood culture grew gram- positive cocci in clusters and he is on vancomycin, will follow identification. Patient is currently on dialysis. Patient is anemic transfuse if hemoglobin is below 7. 02/09: This morning patient has slight hypokalemia, hypochorlemia, hyponatremia and metabolic alkalosis. [facility] will continue bicarb gtt given that the patient does not have HD access at this time. We will replete the potassium and recheck BMP in the AM. We will type and cross in anticipation of PRBC transfusion. This morning he is sedated on Ativan, fentayl, and precedex. Will obtain a triglyceride level today in hopes to resume propofol. Patient is alkalotic and BMP however we will continue with bicarb drip per [facility] given that the patient does not have any access for hemodialysis. Anticipate replacing hemodialysis catheter tomorrow or Tuesday. The time my examination he is on AC TV 550, Rate 34, PeeP 16, FiO2 .65. 02/10: A.m. labs still pending, [facility] plans to replace HD catheter tomorrow as the patient is still febrile however his fever curve is trending down, remains on a bicarb drip and on vancomycin. Today at the time my examination patient was sedated on Precedex, Ativan and fentanyl and he is on assist control tidal 11/04/1951, rate 34, PEEP 16, FiO2 65%. Overnight patient was hypotensive and received 1 dose of midodrine. 02/11: Patient is still having low-grade temperatures that we will obtain a bilateral lower upper extremity venous Doppler ultrasound given that his repeat cultures have been negative so far. Patient received a Vas-Cath today for hemodialysis. The time examination patient is on assist control tidal volume 550, rate of 34, PEEP of 16 and FiO2 of 75%. Patient was hypokalemic and anemic yesterday which were both repleted with potassium and 1 unit PRBC. 02/12: 02/12: Patient had a 12-second run of V. tach today, his potassium and magnesium were low which was repleted. Renal adjusted potassium bath. We will obtain a triglyceride level in hopes to restarting to prevent as needed. This morning at the time my examination patient was sedated on fentanyl, Ativan and Precedex and remained on a bicarb drip. He was on assist control tidal volume 550, rate 34, PEEP 16, FiO2 85%. We will obtain a occult stool given no evident source of bleeding and need for transfusion. Anemia possibly due to hemodialysis. 02/13: Patient's T-max was 100.7, remains on fentanyl, Ativan, Precedex and bicarb drip this morning at some examination on assist control tidal volume 550, rate 34, PEEP 16 and FiO2 85%. On the labs this morning is slightly hypokalemic and remains metabolic alkalotic on BMP. His occult was positive. His Lovenox and consult GI. Patient received hemodialysis today. 02/14: cont PPI, GI recommended to scope now, monitor clinically, tolerating TF, remains intubated. Hb 6.9 today - transfuse another unit. very poor prognosis. 02/15: H&H appears to be stable following 1 unit of transfusion yesterday. Continue to hold heparin and aspirin products. Continue to monitor clinically. Poor prognosis. Wean off from vent as tolerated. 02/16: Infectious disease has signed off, his Ativan drip was discontinued and to prevent drip will be started when patient needs it. T-max 100.6 yesterday afternoon. He received hemodialysis today and at the time my examination was still on mechanical ventilation assist control tidal volume 550, rate 34, PEEP 16 on 70% FiO2. Patient was sedated on fentanyl dexamethasone and Ativan. No acute events reported overnight. 02/17: This morning patient was scheduled to get 2 units PRBC however his repeat H/H after 1 unit PRBC was 7.6/22.8 and the width of the second unit PRBC. This morning patient was sedated on fentanyl, propofol, Precedex and on assist control tolerated by 50, rate 34, PEEP of 16, FiO2 35%. Wound care was consulted today for his upper lip wound. Nephrology continues to withhold dialysis. No acute events reported overnight. Dr. Hoang was unable to contact family for updates. 02/18: Family updated by Dr. Hoang and Dr. Reddy. Patient had a hemodialysis today. The time my examination patient was on assist control tidal volume 550, rate 34, PEEP 16 and FiO2 35%. Overnight patient had a CT head and he was placed on 3% FiO2 and took "a long time to recover" per RN report. Hospitalist Physical - Constitutional Vitals: Temp Pulse Resp BP Pulse Ox 98.9 F 90 34 H 115/62 95 02/18/21 17:00 02/18/21 17:30 02/18/21 17:30 02/18/21 17:30 02/18/21 17:00 General appearance: Present: no acute distress, well-nourished, other (Sedated on mechanical ventilation) HEART Score - HEART Score Risk factors: 1-2 risk factors Troponin: < normal limit - Critical Actions Critical Actions: 0-3 pts:0.9-1.7%risk of adverse cardiac event.Candidate for discharge Results - Labs CBC & Chem 7: 02/18/21 05:02 02/18/21 04:55 Labs: Laboratory Last Values WBC 8.4 K/mm3 (4.5-11.0) 02/18/21 05:02 RBC 2.40 M/mm3 (3.65-5.03) L 02/18/21 05:02 Hgb 7.5 gm/dl (11.8-15.2) L 02/18/21 05:02 Hct 23.1 % (35.5-45.6) L 02/18/21 05:02 MCV 96 fl (84-94) H 02/18/21 05:02 MCH 31 pg (28-32) 02/18/21 05:02 MCHC 32 % (32-34) 02/18/21 05:02 RDW 16.8 % (13.2-15.2) H 02/18/21 05:02 Plt Count 231 K/mm3 (140-440) 02/18/21 05:02 Lymph % (Auto) 11.0 % (13.4-35.0) L 02/15/21 05:00 [place] % (Auto) 4.2 % (0.0-7.3) 02/15/21 05:00 Eos % (Auto) 1.2 % (0.0-4.3) 02/15/21 05:00 Baso % (Auto) 0.6 % (0.0-1.8) 02/15/21 05:00 Lymph # (Auto) 1.1 K/mm3 (1.2-5.4) L 02/15/21 05:00 [place] # (Auto) 0.4 K/mm3 (0.0-0.8) 02/15/21 05:00 Eos # (Auto) 0.1 K/mm3 (0.0-0.4) 02/15/21 05:00 Baso # (Auto) 0.1 K/mm3 (0.0-0.1) 02/15/21 05:00 Add Manual Diff Complete 02/16/21 Unknown Total Counted 100 02/16/21 Unknown Seg Neutrophils % 83.0 % (40.0-70.0) H 02/15/21 05:00 Seg Neuts % (Manual) 85.0 % (40.0-70.0) H 02/16/21 Unknown Band Neutrophils % 2.0 % 02/16/21 Unknown Lymphocytes % (Manual) 6.0 % (13.4-35.0) L 02/16/21 Unknown Reactive Lymphs % (Man) 1.0 % 01/27/21 05:29 Monocytes % (Manual) 5.0 % (0.0-7.3) 02/16/21 Unknown Eosinophils % (Manual) 1.0 % (0.0-4.3) 02/16/21 Unknown Basophils % (Manual) 1.0 % (0.0-1.8) 02/06/21 Unknown Metamyelocytes % 1.0 % 02/16/21 Unknown Nucleated RBC % 4.0 % (0.0-0.9) H 02/16/21 Unknown Seg Neutrophils # 8.6 K/mm3 (1.8-7.7) H 02/15/21 05:00 Seg Neutrophils # Man 7.6 K/mm3 (1.8-7.7) 02/16/21 Unknown Band Neutrophils # 0.2 K/mm3 02/16/21 Unknown Lymphocytes # (Manual) 0.5 K/mm3 (1.2-5.4) L 02/16/21 Unknown Abs React Lymphs (Man) 0.0 K/mm3 02/16/21 Unknown Monocytes # (Manual) 0.4 K/mm3 (0.0-0.8) 02/16/21 Unknown Eosinophils # (Manual) 0.1 K/mm3 (0.0-0.4) 02/16/21 Unknown Basophils # (Manual) 0.0 K/mm3 (0.0-0.1) 02/16/21 Unknown Metamyelocytes # 0.1 K/mm3 02/16/21 Unknown Myelocytes # 0.0 K/mm3 02/16/21 Unknown Promyelocytes # 0.0 K/mm3 02/16/21 Unknown Blast Cells # 0.0 K/mm3 02/16/21 Unknown WBC Morphology Not Reportable 02/16/21 Unknown Hypersegmented Neuts Not Reportable 02/16/21 Unknown Hyposegmented Neuts Not Reportable 02/16/21 Unknown Hypogranular Neuts Not Reportable 02/16/21 Unknown Smudge Cells Not Reportable 02/16/21 Unknown Toxic Granulation Not Reportable 02/16/21 Unknown Toxic Vacuolation Not Reportable 02/16/21 Unknown Dohle Bodies Not Reportable 02/16/21 Unknown Pelger-Huet Anomaly Not Reportable 02/16/21 Unknown Fátima Rods Not Reportable 02/16/21 Unknown Platelet Estimate Consistent w auto 02/16/21 Unknown Clumped Platelets Not Reportable 02/16/21 Unknown Plt Clumps, EDTA Not Reportable 02/16/21 Unknown Large Platelets Not Reportable 02/16/21 Unknown Giant Platelets Not Reportable 02/16/21 Unknown Platelet Satelliting Not Reportable 02/16/21 Unknown Plt Morphology Comment Not Reportable 02/16/21 Unknown RBC Morphology Not Reportable 02/16/21 Unknown Dimorphic RBCs Not Reportable 02/16/21 Unknown Polychromasia Not Reportable 02/16/21 Unknown Hypochromasia Not Reportable 02/16/21 Unknown Poikilocytosis Not Reportable 02/16/21 Unknown Anisocytosis 1+ 02/16/21 Unknown Microcytosis Not Reportable 02/16/21 Unknown Macrocytosis Not Reportable 02/16/21 Unknown Spherocytes Not Reportable 02/16/21 Unknown Pappenheimer Bodies Not Reportable 02/16/21 Unknown Sickle Cells Not Reportable 02/16/21 Unknown Target Cells Not Reportable 02/16/21 Unknown Tear Drop Cells Not Reportable 02/16/21 Unknown Ovalocytes Not Reportable 02/16/21 Unknown Helmet Cells Not Reportable 02/16/21 Unknown [place] Bodies Not Reportable 02/16/21 Unknown [place] Rings Not Reportable 02/16/21 Unknown [place] Cells Not Reportable 02/16/21 Unknown Bite Cells Not Reportable 02/16/21 Unknown Crenated Cell Not Reportable 02/16/21 Unknown Elliptocytes Not Reportable 02/16/21 Unknown Acanthocytes (Spur) Not Reportable 02/16/21 Unknown Rouleaux Not Reportable 02/16/21 Unknown Hemoglobin C Crystals Not Reportable 02/16/21 Unknown Schistocytes Not Reportable 02/16/21 Unknown Malaria parasites Not Reportable 02/16/21 Unknown Aquiles Bodies Not Reportable 02/16/21 Unknown Hem Pathologist Commnt No 02/16/21 Unknown PT 14.9 Sec. (12.2-14.9) 02/11/21 08:27 INR 1.17 (0.87-1.13) H 02/11/21 08:27 D-Dimer 3183.35 ng/mlDDU (0-234) H 02/17/21 04:14 ABG pH 7.219 (7.320-7.450) L 02/18/21 04:03 POC ABG pCO2 58.7 mmHg (32.0-48.0) H 02/18/21 04:03 ABG pCO2 51.2 mm Hg 02/12/21 04:41 POC ABG pO2 64.2 mmHg (83-108) L 02/18/21 04:03 ABG pO2 69.0 mm Hg (80.0-90.0) L 02/12/21 04:41 POC ABG HCO3 23.4 02/18/21 04:03 ABG HCO3 32.5 mmol/L (20.0-26.0) H 02/12/21 04:41 ABG O2 Saturation 91.2 (0-100) 02/17/21 04:00 ABG O2 Content 4.3 (0.0-44) 02/12/21 04:41 POC ABG Base Excess -5.3 02/18/21 04:03 ABG Base Excess 7.7 mmol/L (-2.0-3.0) H 02/12/21 04:41 ABG Hemoglobin 7.7 (12.0-17.5) L 02/17/21 04:00 ABG Oxyhemoglobin 88.8 (94-98) L 02/15/21 05:00 ABG Carboxyhemoglobin 2.4 % (0.0-5.0) 02/12/21 04:41 ABG Methemoglobin 0.3 (0.0-1.5) 02/15/21 05:00 ABG Sodium 130.5 mmol/L (136.0-145.0) L 02/18/21 04:03 ABG Potassium 4.5 mmol/L (3.40-4.50) 02/18/21 04:03 ABG Chloride 101.0 mmol/L (98-107) 02/18/21 04:03 ABG Glucose 147 mg/dL (65-95) H 02/18/21 04:03 Oxyhemoglobin 94.7 % (95.0-99.0) L 02/12/21 04:41 Carboxyhemoglobin 1.6 (0.5-1.5) H 02/15/21 05:00 FiO2 75 % 02/12/21 04:41 FiO2 % 85 02/18/21 04:03 Sodium 134 mmol/L (137-145) L 02/18/21 04:55 Potassium 4.7 mmol/L (3.6-5.0) 02/18/21 04:55 Chloride 97.9 mmol/L (98-107) L 02/18/21 04:55 Carbon Dioxide 27 mmol/L (22-30) 02/18/21 04:55 Anion Gap 14 mmol/L 02/18/21 04:55 BUN 64 mg/dL (9-20) H 02/18/21 04:55 Creatinine 6.5 mg/dL (0.8-1.3) H 02/18/21 04:55 Estimated GFR 11 ml/min 02/18/21 04:55 BUN/Creatinine Ratio 10 % 02/18/21 04:55 Glucose 135 mg/dL (75-100) H 02/18/21 04:55 POC Glucose 123 mg/dL (70-105) H 02/18/21 11:51 Hemoglobin A1c 6.3 % (4-6) H 02/02/21 16:00 Lactic Acid 1.90 mmol/L (0.7-2.0) 01/24/21 14:38 Calcium 8.0 mg/dL (8.4-10.2) L 02/18/21 04:55 Phosphorus 3.90 mg/dL (2.5-4.5) 02/13/21 06:40 Magnesium 1.70 mg/dL (1.7-2.3) 02/16/21 17:09 Ferritin 894.0 ng/mL (30.0-300.0) H 02/17/21 04:14 Total Bilirubin 1.50 mg/dL (0.1-1.2) H 01/26/21 05:47 AST 37 units/L (5-40) 01/26/21 05:47 ALT 29 units/L (7-56) 01/26/21 05:47 Alkaline Phosphatase 70 units/L (35-129) 01/26/21 05:47 Lactate Dehydrogenase 399 units/L (91-180) H 02/17/21 04:14 C-Reactive Protein 22.10 mg/dL (0.00-1.30) H 02/17/21 04:14 Total Protein 7.2 g/dL (6.3-8.2) 01/26/21 05:47 Albumin 2.2 g/dL (3.9-5) L 01/26/21 05:47 Albumin/Globulin Ratio 0.4 % 01/26/21 05:47 Triglycerides 182 mg/dL (2-149) H 02/12/21 10:45 Procalcitonin 18.94 ng/mL (<0.15) 02/16/21 17:09 Arterial Blood Glucose 147 mg/dL (65-95) H 02/18/21 04:03 Arterial Blood Ionized Calcium 4.6 mg/dL (4.6-5.3) 02/18/21 04:03 Urine Color Nehal (Yellow) 01/22/21 22:39 Urine Turbidity Cloudy (Clear) 01/22/21 22:39 Urine pH 5.0 (5.0-7.0) 01/22/21 22:39 Ur Specific [place] 1.017 (1.003-1.030) 01/22/21 22:39 Urine Protein 100 mg/dl mg/dL (Negative) 01/22/21 22:39 Urine Glucose (UA) Neg mg/dL (Negative) 01/22/21 22:39 Urine Ketones Neg mg/dL (Negative) 01/22/21 22:39 Urine Blood Mod (Negative) 01/22/21 22:39 Urine Nitrite Neg (Negative) 01/22/21 22:39 Urine Bilirubin Neg (Negative) 01/22/21 22:39 Urine Urobilinogen 2.0 mg/dL (<2.0) 01/22/21 22:39 Ur Leukocyte Esterase Mod (Negative) 01/22/21 22:39 Urine WBC (Auto) < 1.0 /HPF (0.0-6.0) 01/22/21 22:39 Urine RBC (Auto) < 1.0 /HPF (0.0-6.0) 01/22/21 22:39 U Epithel Cells (Auto) < 1.0 /HPF (0-13.0) 01/22/21 22:39 Urine Osmolality 416 Mosm/kg 01/30/21 12:15 Urine Total Volume 2300 ml 01/30/21 12:00 Urine Creatinine 53.0 mg/dL (0.1-20.0) H 01/30/21 12:00 Ur Creatinine 24 Hour 1.2 (0.8-2.8) 01/30/21 12:00 Urine Sodium 28 mmol/L 01/22/21 22:39 Nasal Screen MRSA (PCR) Negative (Negative) 02/02/21 13:20 Random Vancomycin 13.7 ug/mL (0-40.0) 02/07/21 10:40 Coronavirus (PCR) Positive (Negative) A 01/23/21 08:41 Hepatitis A IgM Ab Non-reactive (NonReactive) 02/03/21 Unknown Hep Bs Antigen Non-reactive (Negative) 02/03/21 Unknown Hep B Core IgM Ab Non-reactive (NonReactive) 02/03/21 Unknown Hepatitis C Antibody Non-reactive (NonReactive) 02/03/21 Unknown Blood Type B POSITIVE 02/17/21 07:45 Antibody Screen Negative 02/17/21 07:45 Crossmatch See Detail 02/17/21 07:45 Black/IV: Voiding Method Incontinent Active Medications - Current Medications Current Medications: Generic Name Dose Route Start Last Admin Trade Name Freq PRN Reason Stop Dose Admin Acetaminophen 650 mg 01/23/21 02:25 02/11/21 18:20 Acetaminophen 650 Mg Rect Supp NV 650 mg Q4H PRN Administration Pain, Mild (1-3) Acetaminophen 650 mg 01/24/21 12:58 02/15/21 18:06 Acetaminophen 325 Mg/10.15 Ml Oral Liqd Unit Dose FEEDTUBE 650 mg Q6H PRN Administration Pain, Mild (1-3) Lipase/Protease/Amylase 1 each 01/26/21 14:25 Lipase 10,500/Protease 25,000/Amylase 43,750 (Units) Dr Cap FEEDTUBE PRN PRN For Clogged Feeding Tube Dextrose 50 ml 01/27/21 07:24 Dextrose 50% In Water (25gm) 50 Ml Syringe IV Q30MIN PRN Hypoglycemia Protocol Fentanyl 50 mcg 01/22/21 22:39 02/10/21 13:46 Fentanyl 100 Mcg/2 Ml Inj IV 50 mcg Q10MIN PRN Administration ANALGESIA Heparin Sodium (Porcine) 2,000 unit 02/11/21 09:38 Heparin 10,000 Units/10 Ml Vial IV SAGRARIO PRN hemodialysis Hydrophilic Ointment 1 applic 01/22/21 22:39 02/17/21 17:14 Lip Therapy Vaseline TP 1 applic Q2HR PRN Administration Dry Lips Fentanyl Citrate 2,000 mcg in 100 mls @ 6.124 mls/hr 01/22/21 23:00 02/18/21 15:38 Fentanyl Drip Premix IV 3 mcg/kg/hr TITR CECE 18.371 mls/hr Titration Protocol 1 MCG/KG/HR Propofol 1,000 mg in 100 mls @ 3.674 mls/hr 01/22/21 23:45 02/18/21 15:37 Diprivan 10 Mg/Ml IV 10 mcg/kg/min TITR CECE 7.348 mls/hr Administration Protocol 5 MCG/KG/MIN Norepinephrine 4 mg in 250 mls @ 7.5 mls/hr 01/28/21 14:00 02/08/21 06:08 Levophed Drip 4 Mg/Ns 250 Ml IV 0 mcg/min TITR CECE 0 mls/hr Titration Protocol 2 MCG/MIN Dexmedetomidine HCl 1,000 mcg/ 260 mls @ 6.368 mls/hr 01/30/21 20:00 02/18/21 13:34 Sodium Chloride IV 1.2 mcg/kg/hr TITRATE CECE 38.211 mls/hr Administration Protocol 0.2 MCG/KG/HR Sodium Chloride 100 mls @ 999 mls/hr 02/15/21 16:45 Nacl 0.9% IV SAGRARIO PRN Hypotension Lansoprazole 30 mg 02/18/21 10:00 02/18/21 17:34 Lansoprazole 30 Mg Solutab FEEDTUBE Not Given QDAY CECE Multi-Ingred Cream/Lotion/Oil/Oint 1 applic 01/22/21 22:39 02/01/21 09:33 Mineral Oil/Petrolatum, White Ophth Oint 3.5 Gm OU 1 applic Q4HR PRN Administration Dry Eye(s) Ondansetron HCl 4 mg 01/23/21 02:17 Ondansetron 4 Mg/2 Ml Inj IV Q8H PRN Nausea And Vomiting Senna/Docusate Sodium 2 tab 02/17/21 11:00 02/18/21 13:35 Sennosides/Docusate Sodium 8.6/50 Mg Tab PO 2 tab TID CECE Administration Simple Syrup 15 ml 01/26/21 14:25 Simple Syrup 15 Ml FEEDTUBE PRN PRN Hypoglycemia Simple Syrup 30 ml 01/26/21 14:25 Simple Syrup 15 Ml FEEDTUBE PRN PRN Hypoglycemia Sodium Bicarbonate 325 mg 01/26/21 14:25 Sodium Bicarbonate 325 Mg Tab FEEDTUBE PRN PRN For Clogged Feeding Tube Nutrition/Malnutrition Assess - Dietary Evaluation Nutrition/Malnutrition Findings: Nutrition Notes Start: 01/26/21 13:59 Freq: Status: Active Protocol: Document 02/17/21 14:54 CW (Rec: 02/17/21 15:09 CW [id number]) Nutrition Notes Initial or Follow up Reassessment Current Diagnosis Acute Kidney Injury,Diabetes, Sepsis,Hypertension, Respiratory Failure, Hyperlipidemia Other Pertinent Diagnosis on HD, COVID-19 (+), bilat pneu Current Diet TF - Nepro at 36 ml/hr Labs/Tests Na 136 BUN 49 Cr 5.3 BG 139 Pertinent Medications propofol at 3.674 ml/hr (97 kcal) Height 5 ft 8 in Weight 161.4 kg [place] Body Weight (kg) 70.00 BMI 54.1 Weight change and time frame wt stable Weight Status Morbidly Obese Subjective/Other Information F/U for Na labs and TF tolerance. Pt continues to tolerate TF regimen at goal. No recent BW. RN to intitate Rx protocol for constipation. Pt now has pressure ulcer to lips. Percent of energy/protein needs met: 80%/61% Burn Absent Trauma Absent GI Symptoms None Difficulty In Swallowing Skin Integrity/Comment pressure uolcer to lips Current % PO Negligible Minimum of two criteria No physical signs of malnutrition #2 Nutrition Diagnosis Increased nutrient needs ( specify in comment below) Comments: protein Etiology wound healing As Evidenced by Signs and Symptoms pressure wound to lips #1 Nutrition Diagnosis Inadequate oral intake Diagnosis Progress(for reassessment Continues documentation) Is patient on ventilator? Yes Is Patient Ambulatory and/or Out of Bed No REE-([facility]-confined to bed) 2870.220 Kcal/Kg value to use for calculation 12 Approximate Energy Requirements Using 1937 kcal/Kg Calculation Used for Recommendations Kcal/kg Additional Notes Pro needs >1.2g/kg adjBW: > 115g/day for HD needs Fluid needs 500+ total output or per MD Nutrition Intervention Change Diet Order: Increase TF Nutrition Support: Nepro at 46 ml/hr with a free water flush of 125 ml q4h for hyponatremia. Resume flush of 200 ml q4h once hyponatremia resolved. Kcal 1,987 Protein (gm) 89 Fluid (mL) 803 Goal #1 TF tolerance Goal #2 TF to meet at least 75% energy and pro needs Anticipated Discharge Needs: unable to determine at this time Follow-Up By: 02/19/21 Additional Comments F/U for TF tolerance and Na levels <DENNYS HOANG R - Last Filed: 02/18/21 22:30> Assessment and Plan Assessment and plan: I saw and evaluated the patient. I agree with the findings and the plan of care as documented in the Nurse Practitioner's~note. Hospitalist Physical - Constitutional Vitals: Temp Pulse Resp BP Pulse Ox 99.1 F 100 H 34 H 134/65 89 02/18/21 19:59 02/18/21 22:00 02/18/21 22:00 02/18/21 22:00 02/18/21 22:00 Results - Labs CBC & Chem 7: 02/18/21 05:02 02/18/21 04:55 Labs: Laboratory Last Values WBC 8.4 K/mm3 (4.5-11.0) 02/18/21 05:02 RBC 2.40 M/mm3 (3.65-5.03) L 02/18/21 05:02 Hgb 7.5 gm/dl (11.8-15.2) L 02/18/21 05:02 Hct 23.1 % (35.5-45.6) L 02/18/21 05:02 MCV 96 fl (84-94) H 02/18/21 05:02 MCH 31 pg (28-32) 02/18/21 05:02 MCHC 32 % (32-34) 02/18/21 05:02 RDW 16.8 % (13.2-15.2) H 02/18/21 05:02 Plt Count 231 K/mm3 (140-440) 02/18/21 05:02 Lymph % (Auto) 11.0 % (13.4-35.0) L 02/15/21 05:00 [place] % (Auto) 4.2 % (0.0-7.3) 02/15/21 05:00 Eos % (Auto) 1.2 % (0.0-4.3) 02/15/21 05:00 Baso % (Auto) 0.6 % (0.0-1.8) 02/15/21 05:00 Lymph # (Auto) 1.1 K/mm3 (1.2-5.4) L 02/15/21 05:00 [place] # (Auto) 0.4 K/mm3 (0.0-0.8) 02/15/21 05:00 Eos # (Auto) 0.1 K/mm3 (0.0-0.4) 02/15/21 05:00 Baso # (Auto) 0.1 K/mm3 (0.0-0.1) 02/15/21 05:00 Add Manual Diff Complete 02/16/21 Unknown Total Counted 100 02/16/21 Unknown Seg Neutrophils % 83.0 % (40.0-70.0) H 02/15/21 05:00 Seg Neuts % (Manual) 85.0 % (40.0-70.0) H 02/16/21 Unknown Band Neutrophils % 2.0 % 02/16/21 Unknown Lymphocytes % (Manual) 6.0 % (13.4-35.0) L 02/16/21 Unknown Reactive Lymphs % (Man) 1.0 % 01/27/21 05:29 Monocytes % (Manual) 5.0 % (0.0-7.3) 02/16/21 Unknown Eosinophils % (Manual) 1.0 % (0.0-4.3) 02/16/21 Unknown Basophils % (Manual) 1.0 % (0.0-1.8) 02/06/21 Unknown Metamyelocytes % 1.0 % 02/16/21 Unknown Nucleated RBC % 4.0 % (0.0-0.9) H 02/16/21 Unknown Seg Neutrophils # 8.6 K/mm3 (1.8-7.7) H 02/15/21 05:00 Seg Neutrophils # Man 7.6 K/mm3 (1.8-7.7) 02/16/21 Unknown Band Neutrophils # 0.2 K/mm3 02/16/21 Unknown Lymphocytes # (Manual) 0.5 K/mm3 (1.2-5.4) L 02/16/21 Unknown Abs React Lymphs (Man) 0.0 K/mm3 02/16/21 Unknown Monocytes # (Manual) 0.4 K/mm3 (0.0-0.8) 02/16/21 Unknown Eosinophils # (Manual) 0.1 K/mm3 (0.0-0.4) 02/16/21 Unknown Basophils # (Manual) 0.0 K/mm3 (0.0-0.1) 02/16/21 Unknown Metamyelocytes # 0.1 K/mm3 02/16/21 Unknown Myelocytes # 0.0 K/mm3 02/16/21 Unknown Promyelocytes # 0.0 K/mm3 02/16/21 Unknown Blast Cells # 0.0 K/mm3 02/16/21 Unknown WBC Morphology Not Reportable 02/16/21 Unknown Hypersegmented Neuts Not Reportable 02/16/21 Unknown Hyposegmented Neuts Not Reportable 02/16/21 Unknown Hypogranular Neuts Not Reportable 02/16/21 Unknown Smudge Cells Not Reportable 02/16/21 Unknown Toxic Granulation Not Reportable 02/16/21 Unknown Toxic Vacuolation Not Reportable 02/16/21 Unknown Dohle Bodies Not Reportable 02/16/21 Unknown Pelger-Huet Anomaly Not Reportable 02/16/21 Unknown Fátima Rods Not Reportable 02/16/21 Unknown Platelet Estimate Consistent w auto 02/16/21 Unknown Clumped Platelets Not Reportable 02/16/21 Unknown Plt Clumps, EDTA Not Reportable 02/16/21 Unknown Large Platelets Not Reportable 02/16/21 Unknown Giant Platelets Not Reportable 02/16/21 Unknown Platelet Satelliting Not Reportable 02/16/21 Unknown Plt Morphology Comment Not Reportable 02/16/21 Unknown RBC Morphology Not Reportable 02/16/21 Unknown Dimorphic RBCs Not Reportable 02/16/21 Unknown Polychromasia Not Reportable 02/16/21 Unknown Hypochromasia Not Reportable 02/16/21 Unknown Poikilocytosis Not Reportable 02/16/21 Unknown Anisocytosis 1+ 02/16/21 Unknown Microcytosis Not Reportable 02/16/21 Unknown Macrocytosis Not Reportable 02/16/21 Unknown Spherocytes Not Reportable 02/16/21 Unknown Pappenheimer Bodies Not Reportable 02/16/21 Unknown Sickle Cells Not Reportable 02/16/21 Unknown Target Cells Not Reportable 02/16/21 Unknown Tear Drop Cells Not Reportable 02/16/21 Unknown Ovalocytes Not Reportable 02/16/21 Unknown Helmet Cells Not Reportable 02/16/21 Unknown [place] Bodies Not Reportable 02/16/21 Unknown [place] Rings Not Reportable 02/16/21 Unknown [place] Cells Not Reportable 02/16/21 Unknown Bite Cells Not Reportable 02/16/21 Unknown Crenated Cell Not Reportable 02/16/21 Unknown Elliptocytes Not Reportable 02/16/21 Unknown Acanthocytes (Spur) Not Reportable 02/16/21 Unknown Rouleaux Not Reportable 02/16/21 Unknown Hemoglobin C Crystals Not Reportable 02/16/21 Unknown Schistocytes Not Reportable 02/16/21 Unknown Malaria parasites Not Reportable 02/16/21 Unknown [place] Bodies Not Reportable 02/16/21 Unknown Hem Pathologist Commnt No 02/16/21 Unknown PT 14.9 Sec. (12.2-14.9) 02/11/21 08:27 INR 1.17 (0.87-1.13) H 02/11/21 08:27 D-Dimer 3183.35 ng/mlDDU (0-234) H 02/17/21 04:14 ABG pH 7.219 (7.320-7.450) L 02/18/21 04:03 POC ABG pCO2 58.7 mmHg (32.0-48.0) H 02/18/21 04:03 ABG pCO2 51.2 mm Hg 02/12/21 04:41 POC ABG pO2 64.2 mmHg (83-108) L 02/18/21 04:03 ABG pO2 69.0 mm Hg (80.0-90.0) L 02/12/21 04:41 POC ABG HCO3 23.4 02/18/21 04:03 ABG HCO3 32.5 mmol/L (20.0-26.0) H 02/12/21 04:41 ABG O2 Saturation 91.2 (0-100) 02/17/21 04:00 ABG O2 Content 4.3 (0.0-44) 02/12/21 04:41 POC ABG Base Excess -5.3 02/18/21 04:03 ABG Base Excess 7.7 mmol/L (-2.0-3.0) H 02/12/21 04:41 ABG Hemoglobin 7.7 (12.0-17.5) L 02/17/21 04:00 ABG Oxyhemoglobin 88.8 (94-98) L 02/15/21 05:00 ABG Carboxyhemoglobin 2.4 % (0.0-5.0) 02/12/21 04:41 ABG Methemoglobin 0.3 (0.0-1.5) 02/15/21 05:00 ABG Sodium 130.5 mmol/L (136.0-145.0) L 02/18/21 04:03 ABG Potassium 4.5 mmol/L (3.40-4.50) 02/18/21 04:03 ABG Chloride 101.0 mmol/L (98-107) 02/18/21 04:03 ABG Glucose 147 mg/dL (65-95) H 02/18/21 04:03 Oxyhemoglobin 94.7 % (95.0-99.0) L 02/12/21 04:41 Carboxyhemoglobin 1.6 (0.5-1.5) H 02/15/21 05:00 FiO2 75 % 02/12/21 04:41 FiO2 % 85 02/18/21 04:03 Sodium 134 mmol/L (137-145) L 02/18/21 04:55 Potassium 4.7 mmol/L (3.6-5.0) 02/18/21 04:55 Chloride 97.9 mmol/L (98-107) L 02/18/21 04:55 Carbon Dioxide 27 mmol/L (22-30) 02/18/21 04:55 Anion Gap 14 mmol/L 02/18/21 04:55 BUN 64 mg/dL (9-20) H 02/18/21 04:55 Creatinine 6.5 mg/dL (0.8-1.3) H 02/18/21 04:55 Estimated GFR 11 ml/min 02/18/21 04:55 BUN/Creatinine Ratio 10 % 02/18/21 04:55 Glucose 135 mg/dL (75-100) H 02/18/21 04:55 POC Glucose 123 mg/dL (70-105) H 02/18/21 11:51 Hemoglobin A1c 6.3 % (4-6) H 02/02/21 16:00 Lactic Acid 1.90 mmol/L (0.7-2.0) 01/24/21 14:38 Calcium 8.0 mg/dL (8.4-10.2) L 02/18/21 04:55 Phosphorus 3.90 mg/dL (2.5-4.5) 02/13/21 06:40 Magnesium 1.70 mg/dL (1.7-2.3) 02/16/21 17:09 Ferritin 894.0 ng/mL (30.0-300.0) H 02/17/21 04:14 Total Bilirubin 1.50 mg/dL (0.1-1.2) H 01/26/21 05:47 AST 37 units/L (5-40) 01/26/21 05:47 ALT 29 units/L (7-56) 01/26/21 05:47 Alkaline Phosphatase 70 units/L (35-129) 01/26/21 05:47 Lactate Dehydrogenase 399 units/L (91-180) H 02/17/21 04:14 C-Reactive Protein 22.10 mg/dL (0.00-1.30) H 02/17/21 04:14 Total Protein 7.2 g/dL (6.3-8.2) 01/26/21 05:47 Albumin 2.2 g/dL (3.9-5) L 01/26/21 05:47 Albumin/Globulin Ratio 0.4 % 01/26/21 05:47 Triglycerides 182 mg/dL (2-149) H 02/12/21 10:45 Procalcitonin 18.94 ng/mL (<0.15) 02/16/21 17:09 Arterial Blood Glucose 147 mg/dL (65-95) H 02/18/21 04:03 Arterial Blood Ionized Calcium 4.6 mg/dL (4.6-5.3) 02/18/21 04:03 Urine Color Nehal (Yellow) 01/22/21 22:39 Urine Turbidity Cloudy (Clear) 01/22/21 22:39 Urine pH 5.0 (5.0-7.0) 01/22/21 22:39 Ur Specific [place] 1.017 (1.003-1.030) 01/22/21 22:39 Urine Protein 100 mg/dl mg/dL (Negative) 01/22/21 22:39 Urine Glucose (UA) Neg mg/dL (Negative) 01/22/21 22:39 Urine Ketones Neg mg/dL (Negative) 01/22/21 22:39 Urine Blood Mod (Negative) 01/22/21 22:39 Urine Nitrite Neg (Negative) 01/22/21 22:39 Urine Bilirubin Neg (Negative) 01/22/21 22:39 Urine Urobilinogen 2.0 mg/dL (<2.0) 01/22/21 22:39 Ur Leukocyte Esterase Mod (Negative) 01/22/21 22:39 Urine WBC (Auto) < 1.0 /HPF (0.0-6.0) 01/22/21 22:39 Urine RBC (Auto) < 1.0 /HPF (0.0-6.0) 01/22/21 22:39 U Epithel Cells (Auto) < 1.0 /HPF (0-13.0) 01/22/21 22:39 Urine Osmolality 416 Mosm/kg 01/30/21 12:15 Urine Total Volume 2300 ml 01/30/21 12:00 Urine Creatinine 53.0 mg/dL (0.1-20.0) H 01/30/21 12:00 Ur Creatinine 24 Hour 1.2 (0.8-2.8) 01/30/21 12:00 Urine Sodium 28 mmol/L 01/22/21 22:39 Nasal Screen MRSA (PCR) Negative (Negative) 02/02/21 13:20 Random Vancomycin 13.7 ug/mL (0-40.0) 02/07/21 10:40 Coronavirus (PCR) Positive (Negative) A 01/23/21 08:41 Hepatitis A IgM Ab Non-reactive (NonReactive) 02/03/21 Unknown Hep Bs Antigen Non-reactive (Negative) 02/03/21 Unknown Hep B Core IgM Ab Non-reactive (NonReactive) 02/03/21 Unknown Hepatitis C Antibody Non-reactive (NonReactive) 02/03/21 Unknown Blood Type B POSITIVE 02/17/21 07:45 Antibody Screen Negative 02/17/21 07:45 Crossmatch See Detail 02/17/21 07:45 Black/IV: Voiding Method Incontinent Active Medications - Current Medications Current Medications: Generic Name Dose Route Start Last Admin Trade Name Freq PRN Reason Stop Dose Admin Acetaminophen 650 mg 01/23/21 02:25 02/11/21 18:20 Acetaminophen 650 Mg Rect Supp [place] 650 mg Q4H PRN Administration Pain, Mild (1-3) Acetaminophen 650 mg 01/24/21 12:58 02/15/21 18:06 Acetaminophen 325 Mg/10.15 Ml Oral Liqd Unit Dose FEEDTUBE 650 mg Q6H PRN Administration Pain, Mild (1-3) Lipase/Protease/Amylase 1 each 01/26/21 14:25 Lipase 10,500/Protease 25,000/Amylase 43,750 (Units) Dr Cap FEEDTUBE PRN PRN For Clogged Feeding Tube Dextrose 50 ml 01/27/21 07:24 Dextrose 50% In Water (25gm) 50 Ml Syringe IV Q30MIN PRN Hypoglycemia Protocol Fentanyl 50 mcg 01/22/21 22:39 02/10/21 13:46 Fentanyl 100 Mcg/2 Ml Inj IV 50 mcg Q10MIN PRN Administration ANALGESIA Heparin Sodium (Porcine) 2,000 unit 02/11/21 09:38 Heparin 10,000 Units/10 Ml Vial IV SAGRARIO PRN hemodialysis Hydrophilic Ointment 1 applic 01/22/21 22:39 02/17/21 17:14 Lip Therapy Vaseline TP 1 applic Q2HR PRN Administration Dry Lips Fentanyl Citrate 2,000 mcg in 100 mls @ 6.124 mls/hr 01/22/21 23:00 02/18/21 18:13 Fentanyl Drip Premix IV 3 mcg/kg/hr TITR CECE 18.371 mls/hr Administration Protocol 1 MCG/KG/HR Propofol 1,000 mg in 100 mls @ 3.674 mls/hr 01/22/21 23:45 02/18/21 21:09 Diprivan 10 Mg/Ml IV 20 mcg/kg/min TITR CECE 14.696 mls/hr Administration Protocol 5 MCG/KG/MIN Norepinephrine 4 mg in 250 mls @ 7.5 mls/hr 01/28/21 14:00 02/08/21 06:08 Levophed Drip 4 Mg/Ns 250 Ml IV 0 mcg/min TITR CECE 0 mls/hr Titration Protocol 2 MCG/MIN Dexmedetomidine HCl 1,000 mcg/ 260 mls @ 6.368 mls/hr 01/30/21 20:00 02/18/21 21:10 Sodium Chloride IV 1.2 mcg/kg/hr TITRATE CECE 38.211 mls/hr Administration Protocol 0.2 MCG/KG/HR Sodium Chloride 100 mls @ 999 mls/hr 02/15/21 16:45 Nacl 0.9% IV SAGRARIO PRN Hypotension Lansoprazole 30 mg 02/18/21 10:00 02/18/21 17:34 Lansoprazole 30 Mg Solutab FEEDTUBE Not Given QDAY CECE Multi-Ingred Cream/Lotion/Oil/Oint 1 applic 01/22/21 22:39 02/01/21 09:33 Mineral Oil/Petrolatum, White Ophth Oint 3.5 Gm OU 1 applic Q4HR PRN Administration Dry Eye(s) Ondansetron HCl 4 mg 01/23/21 02:17 Ondansetron 4 Mg/2 Ml Inj IV Q8H PRN Nausea And Vomiting Senna/Docusate Sodium 2 tab 02/17/21 11:00 02/18/21 21:10 Sennosides/Docusate Sodium 8.6/50 Mg Tab PO 2 tab TID CECE Administration Simple Syrup 15 ml 01/26/21 14:25 Simple Syrup 15 Ml FEEDTUBE PRN PRN Hypoglycemia Simple Syrup 30 ml 01/26/21 14:25 Simple Syrup 15 Ml FEEDTUBE PRN PRN Hypoglycemia Sodium Bicarbonate 325 mg 01/26/21 14:25 Sodium Bicarbonate 325 Mg Tab FEEDTUBE PRN PRN For Clogged Feeding Tube Nutrition/Malnutrition Assess - Dietary Evaluation Nutrition/Malnutrition Findings: Nutrition Notes Start: 01/26/21 13:59 Freq: Status: Active Protocol: Document 02/17/21 14:54 CW (Rec: 02/17/21 15:09 CW [id number]) Nutrition Notes Initial or Follow up Reassessment Current Diagnosis Acute Kidney Injury,Diabetes, Sepsis,Hypertension, Respiratory Failure, Hyperlipidemia Other Pertinent Diagnosis on HD, COVID-19 (+), bilat pneu Current Diet TF - Nepro at 36 ml/hr Labs/Tests Na 136 BUN 49 Cr 5.3 BG 139 Pertinent Medications propofol at 3.674 ml/hr (97 kcal) Height 5 ft 8 in Weight 161.4 kg [place] Body Weight (kg) 70.00 BMI 54.1 Weight change and time frame wt stable Weight Status Morbidly Obese Subjective/Other Information F/U for Na labs and TF tolerance. Pt continues to tolerate TF regimen at goal. No recent BW. RN to intitate Rx protocol for constipation. Pt now has pressure ulcer to lips. Percent of energy/protein needs met: 80%/61% Burn Absent Trauma Absent GI Symptoms None Difficulty In Swallowing Skin Integrity/Comment pressure uolcer to lips Current % PO Negligible Minimum of two criteria No physical signs of malnutrition #2 Nutrition Diagnosis Increased nutrient needs ( specify in comment below) Comments: protein Etiology wound healing As Evidenced by Signs and Symptoms pressure wound to lips #1 Nutrition Diagnosis Inadequate oral intake Diagnosis Progress(for reassessment Continues documentation) Is patient on ventilator? Yes Is Patient Ambulatory and/or Out of Bed No REE-([facility]-confined to bed) 2870.220 Kcal/Kg value to use for calculation 12 Approximate Energy Requirements Using 1937 kcal/Kg Calculation Used for Recommendations Kcal/kg Additional Notes Pro needs >1.2g/kg adjBW: > 115g/day for HD needs Fluid needs 500+ total output or per MD Nutrition Intervention Change Diet Order: Increase TF Nutrition Support: Nepro at 46 ml/hr with a free water flush of 125 ml q4h for hyponatremia. Resume flush of 200 ml q4h once hyponatremia resolved. Kcal 1,987 Protein (gm) 89 Fluid (mL) 803 Goal #1 TF tolerance Goal #2 TF to meet at least 75% energy and pro needs Anticipated Discharge Needs: unable to determine at this time Follow-Up By: 02/19/21 Additional Comments F/U for TF tolerance and Na levels
[2021-02-19] MEDS: dexmedeTOMIDine 1,000 MCG in SODIUM CHLORIDE 0.9% 250ML 250 ML IV SCH ×3 (03:40→16:52)
[2021-02-19] MEDS: fentaNYL DRIP Premix 2,000 MCG/100 ML BAG IV SCH ×4 (04:53→20:29)
[2021-02-19 06:35] LABS: C-Reactive Protein 15.2 mg/dL (0.00-1.30); Calcium 8.6 mg/dL (8.4-10.2)
[2021-02-19] MEDS: SENNOSIDES/DOCUSATE SODIUM 8.6/50 MG TAB PO SCH ×3 (08:22→20:29)
[2021-02-19] MEDS: LANSOPRAZOLE 30 MG SOLUTAB FEEDTUBE SCH (10:46)
[2021-02-19] MEDS ORDERED: MAGNESIUM CITRATE 300 ML ORAL LIQD PO ONE (11:00)
--- NOTE | 2021-02-19 11:26 | Progress Note ---
Assessment and Plan Assessment: Acute Hypoxic respiratory failure COVID-19 PNA Severe sepsis with septic shock Acute kidney injury secondary to ATN Hyperkalemia Hypernatremia DM2 on insulin Anemia Plan: Hemodialysis tomorrow for UF and clearance Initiated on HD on 02/03/21 S/P Right IJ Trialysis dialysis catheter placement by Dr Reddy Strict I&O's monitoring, no UOP recorded Renally dose medications Assess dialysis needs daily Monitor for renal recovery Subjective Date of service: 02/19/21 Principal diagnosis: DEISI Interval history: Patient not directly seen or examined due to being with active COVID-19 infection to limit/reduce risk of exposure and or transmission of the disease in this pandemic and due to limited PPE resources. Objective - Vital Signs Vital signs: Vital Signs - 12hr 02/18/21 02/18/21 02/19/21 23:30 23:55 00:00 Temperature 98.6 F Pulse Rate 96 H 94 H Pulse Rate [ 95 H From Monitor] Respiratory 34 H 34 H Rate Blood Pressure 134/64 133/61 O2 Sat by Pulse 91 94 Oximetry 02/19/21 02/19/21 02/19/21 00:30 01:00 01:30 Temperature Pulse Rate 96 H 97 H 93 H Pulse Rate [ From Monitor] Respiratory 34 H 34 H 34 H Rate Blood Pressure 146/67 135/69 129/60 O2 Sat by Pulse 87 93 95 Oximetry 02/19/21 02/19/21 02/19/21 02:00 02:30 03:00 Temperature Pulse Rate 93 H 95 H 96 H Pulse Rate [ From Monitor] Respiratory 34 H 34 H 34 H Rate Blood Pressure 121/60 123/63 134/65 O2 Sat by Pulse 90 93 Oximetry 02/19/21 02/19/21 02/19/21 03:19 03:30 04:00 Temperature 98.4 F Pulse Rate 94 H 92 H Pulse Rate [ 94 H From Monitor] Respiratory 34 H 34 H Rate Blood Pressure 121/67 122/64 O2 Sat by Pulse 94 Oximetry 02/19/21 02/19/21 02/19/21 04:30 05:00 05:30 Temperature Pulse Rate 93 H 91 H 91 H Pulse Rate [ From Monitor] Respiratory 34 H 35 H 34 H Rate Blood Pressure 125/65 130/59 127/64 O2 Sat by Pulse 96 97 91 Oximetry 02/19/21 02/19/21 02/19/21 06:00 06:30 07:00 Temperature Pulse Rate 92 H 91 H 97 H Pulse Rate [ From Monitor] Respiratory 33 H 34 H 34 H Rate Blood Pressure 110/56 105/54 106/64 O2 Sat by Pulse 98 93 Oximetry 02/19/21 02/19/21 02/19/21 07:30 07:45 07:56 Temperature 99.1 F Pulse Rate 99 H 92 H Pulse Rate [ From Monitor] Respiratory 35 H Rate Blood Pressure 117/67 110/56 O2 Sat by Pulse 91 91 Oximetry 02/19/21 02/19/21 02/19/21 08:00 08:30 09:00 Temperature 99.1 F Pulse Rate 95 H 98 H 94 H Pulse Rate [ 96 H From Monitor] Respiratory 35 H 36 H 34 H Rate Blood Pressure 109/59 119/66 112/61 O2 Sat by Pulse 92 100 92 Oximetry 02/19/21 02/19/21 02/19/21 09:30 10:00 10:30 Temperature Pulse Rate 94 H 92 H 98 H Pulse Rate [ From Monitor] Respiratory 34 H 33 H 34 H Rate Blood Pressure 118/62 112/58 125/68 O2 Sat by Pulse 95 94 94 Oximetry 02/19/21 11:00 Temperature Pulse Rate 101 H Pulse Rate [ From Monitor] Respiratory 34 H Rate Blood Pressure 131/71 O2 Sat by Pulse 89 Oximetry - Lab 02/18/21 05:02 02/19/21 05:45 Most recent lab results ABG pH 7.232 (7.320-7.450) L 02/19/21 05:00 ABG pCO2 51.2 mm Hg 02/12/21 04:41 ABG pO2 69.0 mm Hg (80.0-90.0) L 02/12/21 04:41 ABG HCO3 32.5 mmol/L (20.0-26.0) H 02/12/21 04:41 ABG O2 Saturation 97.8 (0-100) 02/19/21 05:00 Calcium 8.6 mg/dL (8.4-10.2) 02/19/21 05:45 Phosphorus 3.90 mg/dL (2.5-4.5) 02/13/21 06:40 Magnesium 1.70 mg/dL (1.7-2.3) 02/16/21 17:09 Urine Creatinine 53.0 mg/dL (0.1-20.0) H 01/30/21 12:00 Urine Sodium 28 mmol/L 01/22/21 22:39 Medications & Allergies - Medications Allergies/Adverse Reactions: Allergies No Known Allergies Allergy (Unverified 03/12/20 13:41) Home Medications: Home Medications Medication Instructions Recorded Confirmed Last Taken Type Insulin NPH/Regular [Novolin 70/30] 18 unit SUB-Q TIDAC #1 vial 03/12/20 Unknown Rx Syringe-Needle,Insulin,0.5 ml 1 box MC TID #1 box 03/12/20 Unknown Rx [Insulin Syringe/Needle 0.5 ML] Active Medications: Generic Name Dose Route Start Last Admin Trade Name Freq PRN Reason Stop Dose Admin Acetaminophen 650 mg 01/23/21 02:25 02/11/21 18:20 Acetaminophen 650 Mg Rect Supp [place] 650 mg Q4H PRN Administration Pain, Mild (1-3) Acetaminophen 650 mg 01/24/21 12:58 02/15/21 18:06 Acetaminophen 325 Mg/10.15 Ml Oral Liqd Unit Dose FEEDTUBE 650 mg Q6H PRN Administration Pain, Mild (1-3) Lipase/Protease/Amylase 1 each 01/26/21 14:25 Lipase 10,500/Protease 25,000/Amylase 43,750 (Units) Dr Cap FEEDTUBE PRN PRN For Clogged Feeding Tube Dextrose 50 ml 01/27/21 07:24 Dextrose 50% In Water (25gm) 50 Ml Syringe IV Q30MIN PRN Hypoglycemia Protocol Fentanyl 50 mcg 01/22/21 22:39 02/10/21 13:46 Fentanyl 100 Mcg/2 Ml Inj IV 50 mcg Q10MIN PRN Administration ANALGESIA Heparin Sodium (Porcine) 2,000 unit 02/11/21 09:38 Heparin 10,000 Units/10 Ml Vial IV SAGRARIO PRN hemodialysis Heparin Sodium (Porcine) 5,000 unit 02/19/21 14:00 Heparin 5,000 Unit/1 Ml Vial SUB-Q Q8HR CECE Hydrophilic Ointment 1 applic 01/22/21 22:39 02/17/21 17:14 Lip Therapy Vaseline TP 1 applic Q2HR PRN Administration Dry Lips Fentanyl Citrate 2,000 mcg in 100 mls @ 6.124 mls/hr 01/22/21 23:00 02/19/21 10:20 Fentanyl Drip Premix IV 3 mcg/kg/hr TITR CECE 18.371 mls/hr Administration Protocol 1 MCG/KG/HR Propofol 1,000 mg in 100 mls @ 3.674 mls/hr 01/22/21 23:45 02/19/21 11:21 Diprivan 10 Mg/Ml IV 15 mcg/kg/min TITR CECE 11.022 mls/hr Administration Protocol 5 MCG/KG/MIN Norepinephrine 4 mg in 250 mls @ 7.5 mls/hr 01/28/21 14:00 02/08/21 06:08 Levophed Drip 4 Mg/Ns 250 Ml IV 0 mcg/min TITR CECE 0 mls/hr Titration Protocol 2 MCG/MIN Dexmedetomidine HCl 1,000 mcg/ 260 mls @ 6.368 mls/hr 01/30/21 20:00 02/19/21 10:44 Sodium Chloride IV 1.2 mcg/kg/hr TITRATE CECE 38.211 mls/hr Administration Protocol 0.2 MCG/KG/HR Sodium Chloride 100 mls @ 999 mls/hr 02/15/21 16:45 Nacl 0.9% IV SAGR[place]IO PRN Hypotension Lansoprazole 30 mg 02/18/21 10:00 02/19/21 10:46 Lansoprazole 30 Mg Solutab FEEDTUBE 30 mg QDAY CECE Administration Multi-Ingred Cream/Lotion/Oil/Oint 1 applic 01/22/21 22:39 02/01/21 09:33 Mineral Oil/Petrolatum, White Ophth Oint 3.5 Gm OU 1 applic Q4HR PRN Administration Dry Eye(s) Ondansetron HCl 4 mg 01/23/21 02:17 Ondansetron 4 Mg/2 Ml Inj IV Q8H PRN Nausea And Vomiting Senna/Docusate Sodium 2 tab 02/17/21 11:00 02/19/21 08:22 Sennosides/Docusate Sodium 8.6/50 Mg Tab PO 2 tab TID CECE Administration Simple Syrup 15 ml 01/26/21 14:25 Simple Syrup 15 Ml FEEDTUBE PRN PRN Hypoglycemia Simple Syrup 30 ml 01/26/21 14:25 Simple Syrup 15 Ml FEEDTUBE PRN PRN Hypoglycemia Sodium Bicarbonate 325 mg 01/26/21 14:25 Sodium Bicarbonate 325 Mg Tab FEEDTUBE PRN PRN For Clogged Feeding Tube
--- NOTE | 2021-02-19 11:31 | Progress Note ---
Assessment and Plan 60 y/o male with ARDS secondary most likely to COVID 19 pneumonia. 02/19/21: HD per renal, likely tomorrow. Continue sedation. Has not had a BM so will give full dose of mag citrate today. STarted prophylactic anticoagulation. Wean FiO2 as tolerated. Will call family tomorrow. 02/18/21: HD per renal. continue sedation to help with oxygenation. Overall prognosis remains very guarded to poor. IMS has been speaking with family so will defer to them. Currently patient is not a candidate for trach given his oxygen and peep requirements. 02/17/21: Fine with cutting back on HD as not really helped with oxygenation. Continue to wean as tolerated for sats >88% and PaO2 >55. Sedation to achieve negative rass scoring. very very guarded to poor prognosis. 02/16/21: HD now. Wean FiO2 for sats> 88%. Agree with stopping ativan and holding on starting diprovan to see if the patient truly needs it. pH holding off bicarb drip goal is >7.2. Very very guarded to poor prognosis. 02/13/21: HD again now. Replace electrolytes per renal. Continue abx therapy per ID. Will get RT to wean FiO2 as not done on yesterday. Will restart diprovan post HD and stop ativan. Check Levels (Triglycerides on Tue or Tuesday). Can stop bicarb drip however must make sure that ABG is checked daily to make sure that pH is good. Very very guarded prognosis. 02/12/21: HD again today. Had a 12 second run of VTACH today as well. Stable. K is low, checking mag levels. Will alert Renal so they can adjust bath as needed. Post HD will start to wean FiO2 again. Unable to prone as patient does not tolerate. Repeat blood cultures negative and first set only showing Coag Negative Staph. Prognosis still remains very very guarded to poor. Will consider restarting Diprovan tomorrow. Patient now intubated for 20 days now but not candidate for trach yet given elevated PEEP and FiO2 levels but did discuss on rounds. 02/11/21: Vascath placed today for HD. Orders already in. Wean FiO2 for sats >88%. Abx per ID. Repeat cultures so far negative. Given persistent fevers, will check upper ext dopplers. Prognosis still remains guarded. 02/10/21: Triglycerides improved but current sedation is adequate so will hold on stopping ativan to add propofol back. Awaiting Labs from this morning. Plan to replace HD catheter tomorrow morning as early as possible. Fever curve is trending down. Continue bicarb drip for now. Prognosis remains guarded. WIll speak with family tomorrow to update. 02/09/21: Repeat Triglycerides today. Follow up repeat blood cultures. Given continued fever will hold on replacing vascath today. If fever free the next 24 hours, can place in the morning or Tuesday morning. Will likely need blood with next HD session. Continue bicarb drip to help manage respiratory as well as metabolic acidosis. Wean FiO2 for sats >88% and PaO2 >55. Overall prognosis remains guarded to poor. 02/08/21: Picc out today. Will repeat culture if patient spikes again today. Plan to replace HD catheter either late tomorrow or Tuesday. Continue current level of sedation. Abx therapy per ID. Wean FiO2 as tolerated, doubt will be able to do much until we can resume HD. Guarded prognosis. Replaced potassium. Will need to check in the morning. Will repeat K later this afternoon. 02/07/21: Biggest issue now is that patient's numbers are better with HD but now with bacteremia, concern for line infection. ID is correct in requesting line holiday. Has a picc and an Right IJ Dialysis catheter with 3 ports. Currently getting HD today. Have not seen renal yet. Will pull right IJ line post HD and plan to replace it Tuesday evening or Tuesday. Continue bicarb drip for now and will keep picc as patient has been requiring levophed. If able to be weaned off levophed, will remove picc either tomorrow or Tuesday. Continue Ativan, Precedex and Fent drips, repeat Triglycerides on Tuesday. Very very guarded prognosis. Will remove Black today as well. 02/06/21: Will add bicarb drip at 125/hr. Giving 2 amps of NaHCO3 push now. Will repeat ABG this afternoon, may just ask for Art Line if possible. HD today per renal and I spoke with them about the bicarb drip. Long discussion with Sister, Significant and other and another family member on the phone on yesterday. I tried my best to explain the severity of the clinical state but not sure if they fully understood. The patient is very very ill and history suggests that his outcome will be poor (intubated with covid and renal failure on dialysis). This was expressed with the family. Will continue all suppo rtive measures. Checking triglyceride levels today. 02/05/21: WIll increase PEEP to 16. Can increase pressors if needed for BP control during HD. Follow up cultures. If negative will scan legs and arms again for VTE. Repeat ABG at 1400 today. Will speak with sister and Girlfriend on phone today. 02/04/21: HD again today per renal notes. Likely will need daily HD. New fevers. Will draw blood and urine cultures if able to still make urine.. Repeat CXR. May need to check dopplers if all of those studies are negative. Wean FIO2 as tolerated. Unable to tolerate proning. Guarded to poor prognosis. 02/03/21: HD today per renal. Wean FiO2 as tolerated. No further proning as patient cannot tolerate it, however with volume removal, may consider in the future. Use pressors to keep MAPs 65 and greater for HD purporses so volume can be removed. (IJ was wide open (filled with blood)) with patient sitting up at 45 degrees. Guarded prognosis. 02/02/21: After renal speaks with family, will place vascath today. Agree with bicarb drip but will order some pushes now to help with pH. Overall prognosis is very very guarded to poor now that patient is COVID positive and requiring renal replacement therapy. Mortality is very high in these patients. Continue steroid therapy. Unable to tolerate proning. 01/30/21: Will plan for proning later today. Goal will be at least 12hrs but long is okay. Speaking with pharmacy to see if we can get paralytic for a longer per iod of time. Regardless will prone. Continue heavy sedation. BP stable. Continue steroids. Very very guarded prognosis. 01/29/21: will increase tidal volume and/or increase respiratory rate. Repeat ABG this afternoon. Continue paralytic and adequate sedation. Continue steroid and remdesivir, follow up any renal recs. Prognosis remains guarded. Wean Fio2 for sats >88% 01/28/21: Increased PEEP to 16. Will paralyze patient today and increase sedation. Ordering picc line for possible vasopressor therapy needs. Continue BID steroids. Renal function is slightly better today with fluids but could be making oxygenation worse. Not able to diurese. Still making urine. Continue Remdesivir. Watch for fever curve. If not improvement in the next 24 hours with paralyzing, will prone tomorrow morning. 01/27/21: Continue PEEP at 14. No weaning until FiO2 is at or below 40-45%. Continue anticoagulation. Getting Remdesivir now. Continue BID steroids. Renal has increased the fluids. Monitor urine output and renal function. Overall prognosis is very very guarded, especially if renal status worsens. 01/26/21: Increase PEEP to 14. Will add Precedex therapy. If patient does not respond to increases in PEEP may need to prone. Will place patient on lovenox and will feed patient. Remdesivir coming. Continue BID steroids. Prognosis is guarded. 01/25/21: Hold on proning today. Continue BID steroids. ABG this AM was adequate. Pending abg tomorrow, may increase PEEP if not able to wean FiO2 any further. Per charting Remdesivir to arrive tomorrow. Guarded prognosis. 01/24/21: Continue BID steroids. No abg done this am but able to wean FiO2. Will obtain ABG in the am. Hold on proning for right now. Renal following, would like to diurese but they are given fluids for deisi. Agree with ID assessment and note. Guarded prognosis. 1. Increase steroids to BID given size 2. Check with ID to see if he is a candidate for remdesivir or any other experiemental therapy 3. Hold on proning for right now 4. Renal consulted and giving IVF's currently Guarded prognosis. CCT 31 minutes. Subjective Date of service: 02/19/21 Principal diagnosis: DEISI Interval history: No acute changes. PaO2 is slightly better today. Had HD on yesterday. Objective Vital Signs - 12hr 02/18/21 02/18/21 02/19/21 23:30 23:55 00:00 Temperature 98.6 F Pulse Rate 96 H 94 H Pulse Rate [ 95 H From Monitor] Respiratory 34 H 34 H Rate Blood Pressure 134/64 133/61 O2 Sat by Pulse 91 94 Oximetry 02/19/21 02/19/21 02/19/21 00:30 01:00 01:30 Temperature Pulse Rate 96 H 97 H 93 H Pulse Rate [ From Monitor] Respiratory 34 H 34 H 34 H Rate Blood Pressure 146/67 135/69 129/60 O2 Sat by Pulse 87 93 95 Oximetry 02/19/21 02/19/21 02/19/21 02:00 02:30 03:00 Temperature Pulse Rate 93 H 95 H 96 H Pulse Rate [ From Monitor] Respiratory 34 H 34 H 34 H Rate Blood Pressure 121/60 123/63 134/65 O2 Sat by Pulse 90 93 Oximetry 02/19/21 02/19/21 02/19/21 03:19 03:30 04:00 Temperature 98.4 F Pulse Rate 94 H 92 H Pulse Rate [ 94 H From Monitor] Respiratory 34 H 34 H Rate Blood Pressure 121/67 122/64 O2 Sat by Pulse 94 Oximetry 02/19/21 02/19/21 02/19/21 04:30 05:00 05:30 Temperature Pulse Rate 93 H 91 H 91 H Pulse Rate [ From Monitor] Respiratory 34 H 35 H 34 H Rate Blood Pressure 125/65 130/59 127/64 O2 Sat by Pulse 96 97 91 Oximetry 02/19/21 02/19/21 02/19/21 06:00 06:30 07:00 Temperature Pulse Rate 92 H 91 H 97 H Pulse Rate [ From Monitor] Respiratory 33 H 34 H 34 H Rate Blood Pressure 110/56 105/54 106/64 O2 Sat by Pulse 98 93 Oximetry 02/19/21 02/19/21 02/19/21 07:30 07:45 07:56 Temperature 99.1 F Pulse Rate 99 H 92 H Pulse Rate [ From Monitor] Respiratory 35 H Rate Blood Pressure 117/67 110/56 O2 Sat by Pulse 91 91 Oximetry 02/19/21 02/19/21 02/19/21 08:00 08:30 09:00 Temperature 99.1 F Pulse Rate 95 H 98 H 94 H Pulse Rate [ 96 H From Monitor] Respiratory 35 H 36 H 34 H Rate Blood Pressure 109/59 119/66 112/61 O2 Sat by Pulse 92 100 92 Oximetry 02/19/21 02/19/21 02/19/21 09:30 10:00 10:30 Temperature Pulse Rate 94 H 92 H 98 H Pulse Rate [ From Monitor] Respiratory 34 H 33 H 34 H Rate Blood Pressure 118/62 112/58 125/68 O2 Sat by Pulse 95 94 94 Oximetry 02/19/21 11:00 Temperature Pulse Rate 101 H Pulse Rate [ From Monitor] Respiratory 34 H Rate Blood Pressure 131/71 O2 Sat by Pulse 89 Oximetry Constitutional: comatose Eyes: non-icteric ENT: other (orally intubated and sedated) Neck: supple Effort: mildly labored Ascultation: Bilateral: clear Percussion: Bilateral: not dull Cardiovascular: regular rate and rhythm (no mrg) Gastrointestinal: normoactive bowel sounds, soft, non-tender, non-distended Integumentary: normal Extremities: no cyanosis, no edema, pink and warm Neurologic: unable to assess CBC and BMP: 02/18/21 05:02 02/19/21 05:45 ABG, PT/INR, D-dimer: ABG ABG pH 7.232 (7.320-7.450) L 02/19/21 05:00 POC ABG pCO2 64.3 mmHg (32.0-48.0) H 02/19/21 05:00 ABG pCO2 51.2 mm Hg 02/12/21 04:41 POC ABG pO2 106.1 mmHg (83-108) 02/19/21 05:00 ABG pO2 69.0 mm Hg (80.0-90.0) L 02/12/21 04:41 POC ABG HCO3 26.4 02/19/21 05:00 ABG O2 Saturation 97.8 (0-100) 02/19/21 05:00 PT/INR, D-dimer PT 14.9 Sec. (12.2-14.9) 02/11/21 08:27 INR 1.17 (0.87-1.13) H 02/11/21 08:27 D-Dimer 4840.82 ng/mlDDU (0-234) H 02/19/21 05:45 Abnormal lab findings: Abnormal Labs 01/22/21 01/22/21 01/22/21 22:39 22:57 22:57 WBC RBC Hgb Hct MCV MCH MCHC RDW Plt Count Lymph % (Auto) 6.6 L Lymph # (Auto) 0.5 L Seg Neutrophils % 87.6 H Seg Neuts % (Manual) Lymphocytes % (Manual) Nucleated RBC % Seg Neutrophils # Seg Neutrophils # Man Lymphocytes # (Manual) Eosinophils # (Manual) INR D-Dimer ABG pH POC ABG pCO2 POC ABG pO2 ABG pO2 ABG HCO3 ABG O2 Saturation ABG Base Excess ABG Hemoglobin ABG Oxyhemoglobin ABG Sodium ABG Potassium ABG Chloride ABG Glucose Oxyhemoglobin Carboxyhemoglobin Sodium 129 L Potassium 3.4 L Chloride 90.4 L Carbon Dioxide BUN 34 H Creatinine 1.5 H Glucose 146 H POC Glucose Hemoglobin A1c Lactic Acid Calcium 7.8 L Phosphorus Magnesium Ferritin Total Bilirubin AST 75 H ALT 57 H Lactate Dehydrogenase C-Reactive Protein Albumin 2.9 L Triglycerides Arterial Blood Glucose Arterial Blood Ionized Calcium Urine Creatinine 301.2 H Coronavirus (PCR) Crossmatch 01/22/21 01/22/21 01/22/21 22:57 22:57 22:57 WBC RBC Hgb Hct MCV MCH MCHC RDW Plt Count Lymph % (Auto) Lymph # (Auto) Seg Neutrophils % Seg Neuts % (Manual) Lymphocytes % (Manual) Nucleated RBC % Seg Neutrophils # Seg Neutrophils # Man Lymphocytes # (Manual) Eosinophils # (Manual) INR D-Dimer 1173.89 H ABG pH POC ABG pCO2 POC ABG pO2 ABG pO2 ABG HCO3 ABG O2 Saturation ABG Base Excess ABG Hemoglobin ABG Oxyhemoglobin ABG Sodium ABG Potassium ABG Chloride ABG Glucose Oxyhemoglobin Carboxyhemoglobin Sodium Potassium Chloride Carbon Dioxide BUN Creatinine Glucose 149 H POC Glucose Hemoglobin A1c Lactic Acid 2.10 H* Calcium Phosphorus Magnesium Ferritin Total Bilirubin AST ALT Lactate Dehydrogenase 685 H C-Reactive Protein 30.40 H Albumin Triglycerides Arterial Blood Glucose Arterial Blood Ionized Calcium Urine Creatinine Coronavirus (PCR) Crossmatch 01/22/21 01/23/21 01/23/21 22:57 08:41 10:01 WBC RBC Hgb Hct MCV MCH MCHC RDW Plt Count Lymph % (Auto) Lymph # (Auto) Seg Neutrophils % Seg Neuts % (Manual) Lymphocytes % (Manual) Nucleated RBC % Seg Neutrophils # Seg Neutrophils # Man Lymphocytes # (Manual) Eosinophils # (Manual) INR D-Dimer ABG pH POC ABG pCO2 POC ABG pO2 ABG pO2 ABG HCO3 ABG O2 Saturation ABG Base Excess ABG Hemoglobin ABG Oxyhemoglobin ABG Sodium ABG Potassium ABG Chloride ABG Glucose Oxyhemoglobin Carboxyhemoglobin Sodium 131 L Potassium Chloride 88.7 L Carbon Dioxide 18 L BUN 36 H Creatinine 1.6 H Glucose 147 H POC Glucose Hemoglobin A1c Lactic Acid Calcium 7.5 L Phosphorus Magnesium Ferritin 1207.0 H Total Bilirubin AST ALT Lactate Dehydrogenase C-Reactive Protein Albumin Triglycerides Arterial Blood Glucose Arterial Blood Ionized Calcium Urine Creatinine Coronavirus (PCR) Positive A Crossmatch 01/23/21 01/23/21 01/24/21 20:49 Unknown 00:10 WBC RBC Hgb Hct MCV MCH MCHC RDW Plt Count Lymph % (Auto) Lymph # (Auto) Seg Neutrophils % Seg Neuts % (Manual) Lymphocytes % (Manual) Nucleated RBC % Seg Neutrophils # Seg Neutrophils # Man Lymphocytes # (Manual) Eosinophils # (Manual) INR D-Dimer ABG pH POC ABG pCO2 POC ABG pO2 ABG pO2 165.4 H ABG HCO3 ABG O2 Saturation ABG Base Excess -2.5 L ABG Hemoglobin ABG Oxyhemoglobin ABG Sodium ABG Potassium ABG Chloride ABG Glucose Oxyhemoglobin Carboxyhemoglobin Sodium 130 L Potassium Chloride 91.0 L Carbon Dioxide 20 L BUN 52 H Creatinine 3.8 H D Glucose 150 H POC Glucose 125 H Hemoglobin A1c Lactic Acid Calcium 8.0 L Phosphorus Magnesium Ferritin Total Bilirubin AST 42 H ALT Lactate Dehydrogenase C-Reactive Protein Albumin 2.4 L Triglycerides Arterial Blood Glucose Arterial Blood Ionized Calcium Urine Creatinine Coronavirus (PCR) Crossmatch 01/24/21 01/24/21 01/24/21 05:05 05:05 05:05 WBC 14.0 H RBC Hgb Hct MCV 95 H MCH 33 H MCHC RDW Plt Count Lymph % (Auto) Lymph # (Auto) Seg Neutrophils % Seg Neuts % (Manual) 91.0 H Lymphocytes % (Manual) 4.0 L Nucleated RBC % Seg Neutrophils # Seg Neutrophils # Man 12.7 H Lymphocytes # (Manual) 0.6 L Eosinophils # (Manual) INR D-Dimer 6159.48 H ABG pH POC ABG pCO2 POC ABG pO2 ABG pO2 ABG HCO3 ABG O2 Saturation ABG Base Excess ABG Hemoglobin ABG Oxyhemoglobin ABG Sodium ABG Potassium ABG Chloride ABG Glucose Oxyhemoglobin Carboxyhemoglobin Sodium Potassium Chloride Carbon Dioxide BUN Creatinine Glucose POC Glucose Hemoglobin A1c Lactic Acid Calcium Phosphorus Magnesium Ferritin 1178.0 H Total Bilirubin AST ALT Lactate Dehydrogenase C-Reactive Protein Albumin Triglycerides Arterial Blood Glucose Arterial Blood Ionized Calcium Urine Creatinine Coronavirus (PCR) Crossmatch 01/24/21 01/24/21 01/24/21 05:05 05:05 05:05 WBC RBC Hgb Hct MCV MCH MCHC RDW Plt Count Lymph % (Auto) Lymph # (Auto) Seg Neutrophils % Seg Neuts % (Manual) Lymphocytes % (Manual) Nucleated RBC % Seg Neutrophils # Seg Neutrophils # Man Lymphocytes # (Manual) Eosinophils # (Manual) INR D-Dimer ABG pH POC ABG pCO2 POC ABG pO2 ABG pO2 ABG HCO3 ABG O2 Saturation ABG Base Excess ABG Hemoglobin ABG Oxyhemoglobin ABG Sodium ABG Potassium ABG Chloride ABG Glucose Oxyhemoglobin Carboxyhemoglobin Sodium 132 L Potassium Chloride 93.1 L Carbon Dioxide 21 L BUN 57 H Creatinine 3.7 H Glucose 133 H POC Glucose Hemoglobin A1c Lactic Acid 2.20 H* Calcium 7.7 L Phosphorus Magnesium Ferritin Total Bilirubin AST ALT Lactate Dehydrogenase 658 H C-Reactive Protein 33.20 H Albumin 2.4 L Triglycerides Arterial Blood Glucose Arterial Blood Ionized Calcium Urine Creatinine Coronavirus (PCR) Crossmatch 01/24/21 01/24/21 01/24/21 05:34 06:00 17:35 WBC RBC Hgb Hct MCV MCH MCHC RDW Plt Count Lymph % (Auto) Lymph # (Auto) Seg Neutrophils % Seg Neuts % (Manual) Lymphocytes % (Manual) Nucleated RBC % Seg Neutrophils # Seg Neutrophils # Man Lymphocytes # (Manual) Eosinophils # (Manual) INR D-Dimer ABG pH POC ABG pCO2 POC ABG pO2 ABG pO2 ABG HCO3 ABG O2 Saturation ABG Base Excess ABG Hemoglobin ABG Oxyhemoglobin ABG Sodium ABG Potassium ABG Chloride ABG Glucose Oxyhemoglobin Carboxyhemoglobin Sodium Potassium Chloride Carbon Dioxide BUN Creatinine Glucose POC Glucose 136 H 137 H Hemoglobin A1c Lactic Acid Calcium Phosphorus Magnesium 2.80 H Ferritin Total Bilirubin AST ALT Lactate Dehydrogenase C-Reactive Protein Albumin Triglycerides Arterial Blood Glucose Arterial Blood Ionized Calcium Urine Creatinine Coronavirus (PCR) Crossmatch 01/25/21 01/25/21 01/25/21 04:15 05:40 05:40 WBC RBC Hgb Hct MCV 95 H MCH 33 H MCHC 35 H RDW Plt Count Lymph % (Auto) Lymph # (Auto) Seg Neutrophils % Seg Neuts % (Manual) 95.0 H Lymphocytes % (Manual) 3.0 L Nucleated RBC % Seg Neutrophils # Seg Neutrophils # Man 7.8 H Lymphocytes # (Manual) 0.2 L Eosinophils # (Manual) INR D-Dimer ABG pH POC ABG pCO2 POC ABG pO2 63.2 L ABG pO2 ABG HCO3 ABG O2 Saturation ABG Base Excess ABG Hemoglobin ABG Oxyhemoglobin 89.6 L ABG Sodium ABG Potassium ABG Chloride ABG Glucose 165 H Oxyhemoglobin Carboxyhemoglobin 0.3 L Sodium Potassium Chloride Carbon Dioxide BUN 67 H Creatinine 3.4 H Glucose 153 H POC Glucose Hemoglobin A1c Lactic Acid Calcium 7.5 L Phosphorus Magnesium Ferritin Total Bilirubin 1.40 H AST 62 H ALT Lactate Dehydrogenase C-Reactive Protein Albumin 2.6 L Triglycerides Arterial Blood Glucose 165 H Arterial Blood Ionized Calcium 4.3 L Urine Creatinine Coronavirus (PCR) Crossmatch 01/25/21 01/25/21 01/25/21 05:59 12:00 17:17 WBC RBC Hgb Hct MCV MCH MCHC RDW Plt Count Lymph % (Auto) Lymph # (Auto) Seg Neutrophils % Seg Neuts % (Manual) Lymphocytes % (Manual) Nucleated RBC % Seg Neutrophils # Seg Neutrophils # Man Lymphocytes # (Manual) Eosinophils # (Manual) INR D-Dimer ABG pH POC ABG pCO2 POC ABG pO2 ABG pO2 ABG HCO3 ABG O2 Saturation ABG Base Excess ABG Hemoglobin ABG Oxyhemoglobin ABG Sodium ABG Potassium ABG Chloride ABG Glucose Oxyhemoglobin Carboxyhemoglobin Sodium Potassium Chloride Carbon Dioxide BUN Creatinine Glucose POC Glucose 140 H 143 H 149 H Hemoglobin A1c Lactic Acid Calcium Phosphorus Magnesium Ferritin Total Bilirubin AST ALT Lactate Dehydrogenase C-Reactive Protein Albumin Triglycerides Arterial Blood Glucose Arterial Blood Ionized Calcium Urine Creatinine Coronavirus (PCR) Crossmatch 01/25/21 01/26/21 01/26/21 23:41 03:43 05:46 WBC RBC Hgb Hct MCV MCH MCHC RDW Plt Count Lymph % (Auto) Lymph # (Auto) Seg Neutrophils % Seg Neuts % (Manual) Lymphocytes % (Manual) Nucleated RBC % Seg Neutrophils # Seg Neutrophils # Man Lymphocytes # (Manual) Eosinophils # (Manual) INR D-Dimer ABG pH POC ABG pCO2 POC ABG pO2 70.0 L ABG pO2 ABG HCO3 ABG O2 Saturation ABG Base Excess ABG Hemoglobin ABG Oxyhemoglobin 91.9 L ABG Sodium ABG Potassium ABG Chloride 109.0 H ABG Glucose 165 H Oxyhemoglobin Carboxyhemoglobin Sodium Potassium Chloride Carbon Dioxide BUN Creatinine Glucose POC Glucose 132 H 161 H Hemoglobin A1c Lactic Acid Calcium Phosphorus Magnesium Ferritin Total Bilirubin AST ALT Lactate Dehydrogenase C-Reactive Protein Albumin Triglycerides Arterial Blood Glucose 165 H Arterial Blood Ionized Calcium 4.5 L Urine Creatinine Coronavirus (PCR) Crossmatch 01/26/21 01/26/21 01/26/21 05:47 05:47 05:47 WBC RBC Hgb Hct 35.3 L MCV 96 H MCH 33 H MCHC RDW Plt Count Lymph % (Auto) Lymph # (Auto) Seg Neutrophils % Seg Neuts % (Manual) 96.0 H Lymphocytes % (Manual) 2.0 L Nucleated RBC % Seg Neutrophils # Seg Neutrophils # Man Lymphocytes # (Manual) 0.1 L Eosinophils # (Manual) INR D-Dimer > 54867 H ABG pH POC ABG pCO2 POC ABG pO2 ABG pO2 ABG HCO3 ABG O2 Saturation ABG Base Excess ABG Hemoglobin ABG Oxyhemoglobin ABG Sodium ABG Potassium ABG Chloride ABG Glucose Oxyhemoglobin Carboxyhemoglobin Sodium Potassium Chloride Carbon Dioxide BUN 57 H Creatinine 2.2 H Glucose 185 H POC Glucose Hemoglobin A1c Lactic Acid Calcium 8.1 L Phosphorus Magnesium Ferritin Total Bilirubin AST ALT Lactate Dehydrogenase C-Reactive Protein Albumin Triglycerides Arterial Blood Glucose Arterial Blood Ionized Calcium Urine Creatinine Coronavirus (PCR) Crossmatch 01/26/21 01/26/21 01/26/21 05:47 05:47 05:47 WBC RBC Hgb Hct MCV MCH MCHC RDW Plt Count Lymph % (Auto) Lymph # (Auto) Seg Neutrophils % Seg Neuts % (Manual) Lymphocytes % (Manual) Nucleated RBC % Seg Neutrophils # Seg Neutrophils # Man Lymphocytes # (Manual) Eosinophils # (Manual) INR D-Dimer ABG pH POC ABG pCO2 POC ABG pO2 ABG pO2 ABG HCO3 ABG O2 Saturation ABG Base Excess ABG Hemoglobin ABG Oxyhemoglobin ABG Sodium ABG Potassium ABG Chloride ABG Glucose Oxyhemoglobin Carboxyhemoglobin Sodium Potassium Chloride 107.1 H Carbon Dioxide BUN 56 H Creatinine 2.2 H Glucose 188 H POC Glucose Hemoglobin A1c Lactic Acid Calcium 8.0 L Phosphorus Magnesium Ferritin 1178.0 H Total Bilirubin 1.50 H AST ALT Lactate Dehydrogenase 588 H C-Reactive Protein 40.10 H Albumin 2.2 L Triglycerides Arterial Blood Glucose Arterial Blood Ionized Calcium Urine Creatinine Coronavirus (PCR) Crossmatch 01/26/21 01/26/21 01/26/21 11:34 18:17 23:20 WBC RBC Hgb Hct MCV MCH MCHC RDW Plt Count Lymph % (Auto) Lymph # (Auto) Seg Neutrophils % Seg Neuts % (Manual) Lymphocytes % (Manual) Nucleated RBC % Seg Neutrophils # Seg Neutrophils # Man Lymphocytes # (Manual) Eosinophils # (Manual) INR D-Dimer ABG pH POC ABG pCO2 POC ABG pO2 ABG pO2 ABG HCO3 ABG O2 Saturation ABG Base Excess ABG Hemoglobin ABG Oxyhemoglobin ABG Sodium ABG Potassium ABG Chloride ABG Glucose Oxyhemoglobin Carboxyhemoglobin Sodium Potassium Chloride Carbon Dioxide BUN Creatinine Glucose POC Glucose 129 H 205 H 155 H Hemoglobin A1c Lactic Acid Calcium Phosphorus Magnesium Ferritin Total Bilirubin AST ALT Lactate Dehydrogenase C-Reactive Protein Albumin Triglycerides Arterial Blood Glucose Arterial Blood Ionized Calcium Urine Creatinine Coronavirus (PCR) Crossmatch 01/27/21 01/27/21 01/27/21 02:45 05:29 05:29 WBC RBC 3.58 L Hgb 11.7 L Hct 34.9 L MCV 97 H MCH 33 H MCHC RDW Plt Count Lymph % (Auto) Lymph # (Auto) Seg Neutrophils % Seg Neuts % (Manual) 88.0 H Lymphocytes % (Manual) 7.0 L Nucleated RBC % Seg Neutrophils # Seg Neutrophils # Man Lymphocytes # (Manual) 0.5 L Eosinophils # (Manual) INR D-Dimer ABG pH 7.319 L POC ABG pCO2 50.7 H POC ABG pO2 63.0 L ABG pO2 ABG HCO3 ABG O2 Saturation ABG Base Excess ABG Hemoglobin ABG Oxyhemoglobin ABG Sodium 145.2 H ABG Potassium 5.1 H ABG Chloride 114.0 H ABG Glucose 178 H Oxyhemoglobin Carboxyhemoglobin Sodium Potassium Chloride Carbon Dioxide BUN Creatinine Glucose POC Glucose Hemoglobin A1c Lactic Acid Calcium Phosphorus Magnesium 4.00 H Ferritin Total Bilirubin AST ALT Lactate Dehydrogenase C-Reactive Protein Albumin Triglycerides Arterial Blood Glucose 178 H Arterial Blood Ionized Calcium Urine Creatinine Coronavirus (PCR) Crossmatch 01/27/21 01/27/21 01/27/21 05:29 05:29 05:31 WBC RBC Hgb Hct MCV MCH MCHC RDW Plt Count Lymph % (Auto) Lymph # (Auto) Seg Neutrophils % Seg Neuts % (Manual) Lymphocytes % (Manual) Nucleated RBC % Seg Neutrophils # Seg Neutrophils # Man Lymphocytes # (Manual) Eosinophils # (Manual) INR D-Dimer ABG pH POC ABG pCO2 POC ABG pO2 ABG pO2 ABG HCO3 ABG O2 Saturation ABG Base Excess ABG Hemoglobin ABG Oxyhemoglobin ABG Sodium ABG Potassium ABG Chloride ABG Glucose Oxyhemoglobin Carboxyhemoglobin Sodium Potassium 5.2 H Chloride 109.6 H Carbon Dioxide BUN 67 H Creatinine 2.8 H Glucose 195 H POC Glucose 176 H Hemoglobin A1c Lactic Acid Calcium 7.9 L Phosphorus Magnesium Ferritin Total Bilirubin AST ALT Lactate Dehydrogenase C-Reactive Protein Albumin Triglycerides 160 H Arterial Blood Glucose Arterial Blood Ionized Calcium Urine Creatinine Coronavirus (PCR) Crossmatch 01/27/21 01/27/21 01/27/21 11:27 18:08 23:30 WBC RBC Hgb Hct MCV MCH MCHC RDW Plt Count Lymph % (Auto) Lymph # (Auto) Seg Neutrophils % Seg Neuts % (Manual) Lymphocytes % (Manual) Nucleated RBC % Seg Neutrophils # Seg Neutrophils # Man Lymphocytes # (Manual) Eosinophils # (Manual) INR D-Dimer ABG pH POC ABG pCO2 POC ABG pO2 ABG pO2 ABG HCO3 ABG O2 Saturation ABG Base Excess ABG Hemoglobin ABG Oxyhemoglobin ABG Sodium ABG Potassium ABG Chloride ABG Glucose Oxyhemoglobin Carboxyhemoglobin Sodium Potassium Chloride Carbon Dioxide BUN Creatinine Glucose POC Glucose 189 H 212 H 175 H Hemoglobin A1c Lactic Acid Calcium Phosphorus Magnesium Ferritin Total Bilirubin AST ALT Lactate Dehydrogenase C-Reactive Protein Albumin Triglycerides Arterial Blood Glucose Arterial Blood Ionized Calcium Urine Creatinine Coronavirus (PCR) Crossmatch 01/28/21 01/28/21 01/28/21 03:58 04:00 04:00 WBC RBC Hgb Hct MCV MCH MCHC RDW Plt Count Lymph % (Auto) Lymph # (Auto) Seg Neutrophils % Seg Neuts % (Manual) Lymphocytes % (Manual) Nucleated RBC % Seg Neutrophils # Seg Neutrophils # Man Lymphocytes # (Manual) Eosinophils # (Manual) INR D-Dimer > 09974 H ABG pH POC ABG pCO2 POC ABG pO2 52.9 L ABG pO2 ABG HCO3 ABG O2 Saturation ABG Base Excess ABG Hemoglobin ABG Oxyhemoglobin 84.1 L ABG Sodium 148.9 H ABG Potassium ABG Chloride 117.0 H ABG Glucose 194 H Oxyhemoglobin Carboxyhemoglobin Sodium Potassium Chloride Carbon Dioxide BUN Creatinine Glucose POC Glucose Hemoglobin A1c Lactic Acid Calcium Phosphorus Magnesium Ferritin Total Bilirubin AST ALT Lactate Dehydrogenase 679 H C-Reactive Protein 17.10 H Albumin Triglycerides Arterial Blood Glucose 194 H Arterial Blood Ionized Calcium Urine Creatinine Coronavirus (PCR) Crossmatch 01/28/21 01/28/21 01/28/21 04:00 05:00 06:00 WBC RBC 3.59 L Hgb 11.6 L Hct 34.8 L MCV 97 H MCH MCHC RDW Plt Count Lymph % (Auto) Lymph # (Auto) Seg Neutrophils % Seg Neuts % (Manual) 96.0 H Lymphocytes % (Manual) 3.0 L Nucleated RBC % Seg Neutrophils # Seg Neutrophils # Man Lymphocytes # (Manual) 0.2 L Eosinophils # (Manual) INR D-Dimer ABG pH POC ABG pCO2 POC ABG pO2 ABG pO2 ABG HCO3 ABG O2 Saturation ABG Base Excess ABG Hemoglobin ABG Oxyhemoglobin ABG Sodium ABG Potassium ABG Chloride ABG Glucose Oxyhemoglobin Carboxyhemoglobin Sodium Potassium Chloride Carbon Dioxide BUN Creatinine Glucose POC Glucose 159 H Hemoglobin A1c Lactic Acid Calcium Phosphorus Magnesium Ferritin 798.0 H Total Bilirubin AST ALT Lactate Dehydrogenase C-Reactive Protein Albumin Triglycerides Arterial Blood Glucose Arterial Blood Ionized Calcium Urine Creatinine Coronavirus (PCR) Crossmatch 01/28/21 01/28/21 01/28/21 06:00 06:00 08:12 WBC RBC Hgb Hct MCV MCH MCHC RDW Plt Count Lymph % (Auto) Lymph # (Auto) Seg Neutrophils % Seg Neuts % (Manual) Lymphocytes % (Manual) Nucleated RBC % Seg Neutrophils # Seg Neutrophils # Man Lymphocytes # (Manual) Eosinophils # (Manual) INR D-Dimer ABG pH POC ABG pCO2 POC ABG pO2 ABG pO2 ABG HCO3 ABG O2 Saturation ABG Base Excess ABG Hemoglobin ABG Oxyhemoglobin ABG Sodium ABG Potassium ABG Chloride ABG Glucose Oxyhemoglobin Carboxyhemoglobin Sodium Potassium Chloride 111.9 H Carbon Dioxide BUN 59 H Creatinine 2.2 H Glucose 189 H POC Glucose 181 H Hemoglobin A1c Lactic Acid Calcium 8.1 L Phosphorus Magnesium 3.20 H Ferritin Total Bilirubin AST ALT Lactate Dehydrogenase C-Reactive Protein Albumin Triglycerides Arterial Blood Glucose Arterial Blood Ionized Calcium Urine Creatinine Coronavirus (PCR) Crossmatch 01/28/21 01/28/21 01/28/21 12:03 16:43 23:51 WBC RBC Hgb Hct MCV MCH MCHC RDW Plt Count Lymph % (Auto) Lymph # (Auto) Seg Neutrophils % Seg Neuts % (Manual) Lymphocytes % (Manual) Nucleated RBC % Seg Neutrophils # Seg Neutrophils # Man Lymphocytes # (Manual) Eosinophils # (Manual) INR D-Dimer ABG pH POC ABG pCO2 POC ABG pO2 ABG pO2 ABG HCO3 ABG O2 Saturation ABG Base Excess ABG Hemoglobin ABG Oxyhemoglobin ABG Sodium ABG Potassium ABG Chloride ABG Glucose Oxyhemoglobin Carboxyhemoglobin Sodium Potassium Chloride Carbon Dioxide BUN Creatinine Glucose POC Glucose 164 H 198 H 196 H Hemoglobin A1c Lactic Acid Calcium Phosphorus Magnesium Ferritin Total Bilirubin AST ALT Lactate Dehydrogenase C-Reactive Protein Albumin Triglycerides Arterial Blood Glucose Arterial Blood Ionized Calcium Urine Creatinine Coronavirus (PCR) Crossmatch 01/29/21 01/29/21 01/29/21 05:00 05:23 06:00 WBC RBC Hgb Hct MCV MCH MCHC RDW Plt Count Lymph % (Auto) Lymph # (Auto) Seg Neutrophils % Seg Neuts % (Manual) Lymphocytes % (Manual) Nucleated RBC % Seg Neutrophils # Seg Neutrophils # Man Lymphocytes # (Manual) Eosinophils # (Manual) INR D-Dimer ABG pH 7.119 L POC ABG pCO2 87.1 H POC ABG pO2 ABG pO2 ABG HCO3 ABG O2 Saturation ABG Base Excess ABG Hemoglobin ABG Oxyhemoglobin ABG Sodium 152.5 H ABG Potassium 5.7 H ABG Chloride 120.0 H ABG Glucose 217 H Oxyhemoglobin Carboxyhemoglobin Sodium 151 H Potassium 5.9 H D Chloride 117.8 H Carbon Dioxide BUN 54 H Creatinine 2.2 H Glucose 208 H POC Glucose 180 H Hemoglobin A1c Lactic Acid Calcium 7.9 L Phosphorus Magnesium Ferritin Total Bilirubin AST ALT Lactate Dehydrogenase C-Reactive Protein Albumin Triglycerides Arterial Blood Glucose 217 H Arterial Blood Ionized Calcium Urine Creatinine Coronavirus (PCR) Crossmatch 01/29/21 01/29/21 01/29/21 12:29 17:28 18:05 WBC RBC Hgb Hct MCV MCH MCHC RDW Plt Count Lymph % (Auto) Lymph # (Auto) Seg Neutrophils % Seg Neuts % (Manual) Lymphocytes % (Manual) Nucleated RBC % Seg Neutrophils # Seg Neutrophils # Man Lymphocytes # (Manual) Eosinophils # (Manual) INR D-Dimer ABG pH POC ABG pCO2 POC ABG pO2 ABG pO2 ABG HCO3 ABG O2 Saturation ABG Base Excess ABG Hemoglobin ABG Oxyhemoglobin ABG Sodium ABG Potassium ABG Chloride ABG Glucose Oxyhemoglobin Carboxyhemoglobin Sodium 151 H Potassium 5.5 H Chloride 118.2 H Carbon Dioxide BUN 52 H Creatinine 2.2 H Glucose 224 H POC Glucose 181 H 203 H Hemoglobin A1c Lactic Acid Calcium 8.0 L Phosphorus Magnesium Ferritin Total Bilirubin AST ALT Lactate Dehydrogenase C-Reactive Protein Albumin Triglycerides Arterial Blood Glucose Arterial Blood Ionized Calcium Urine Creatinine Coronavirus (PCR) Crossmatch 01/29/21 01/29/21 01/29/21 18:13 23:34 Unknown WBC RBC Hgb Hct MCV 101 H MCH MCHC RDW 15.7 H Plt Count Lymph % (Auto) Lymph # (Auto) Seg Neutrophils % Seg Neuts % (Manual) 95.0 H Lymphocytes % (Manual) 3.0 L Nucleated RBC % Seg Neutrophils # Seg Neutrophils # Man 8.0 H Lymphocytes # (Manual) 0.3 L Eosinophils # (Manual) INR D-Dimer ABG pH 7.223 L POC ABG pCO2 64.8 H POC ABG pO2 63.6 L ABG pO2 ABG HCO3 ABG O2 Saturation ABG Base Excess ABG Hemoglobin ABG Oxyhemoglobin 89.4 L ABG Sodium 152.9 H ABG Potassium 5.3 H ABG Chloride 121.0 H ABG Glucose 227 H Oxyhemoglobin Carboxyhemoglobin Sodium Potassium Chloride Carbon Dioxide BUN Creatinine Glucose POC Glucose 198 H Hemoglobin A1c Lactic Acid Calcium Phosphorus Magnesium Ferritin Total Bilirubin AST ALT Lactate Dehydrogenase C-Reactive Protein Albumin Triglycerides Arterial Blood Glucose 227 H Arterial Blood Ionized Calcium Urine Creatinine Coronavirus (PCR) Crossmatch 01/30/21 01/30/21 01/30/21 04:00 04:00 04:00 WBC RBC Hgb Hct MCV MCH MCHC RDW Plt Count Lymph % (Auto) Lymph # (Auto) Seg Neutrophils % Seg Neuts % (Manual) Lymphocytes % (Manual) Nucleated RBC % Seg Neutrophils # Seg Neutrophils # Man Lymphocytes # (Manual) Eosinophils # (Manual) INR D-Dimer > 16887 H ABG pH POC ABG pCO2 POC ABG pO2 ABG pO2 ABG HCO3 ABG O2 Saturation ABG Base Excess ABG Hemoglobin ABG Oxyhemoglobin ABG Sodium ABG Potassium ABG Chloride ABG Glucose Oxyhemoglobin Carboxyhemoglobin Sodium Potassium Chloride Carbon Dioxide BUN Creatinine Glucose 234 H POC Glucose Hemoglobin A1c Lactic Acid Calcium Phosphorus Magnesium Ferritin 763.9 H Total Bilirubin AST ALT Lactate Dehydrogenase 424 H C-Reactive Protein 23.90 H Albumin Triglycerides Arterial Blood Glucose Arterial Blood Ionized Calcium Urine Creatinine Coronavirus (PCR) Crossmatch 01/30/21 01/30/21 01/30/21 04:24 05:00 05:16 WBC RBC 3.57 L Hgb 11.3 L Hct 35.4 L MCV 99 H MCH MCHC RDW 15.6 H Plt Count Lymph % (Auto) Lymph # (Auto) Seg Neutrophils % Seg Neuts % (Manual) 97.0 H Lymphocytes % (Manual) 1.0 L Nucleated RBC % Seg Neutrophils # Seg Neutrophils # Man 8.6 H Lymphocytes # (Manual) 0.1 L Eosinophils # (Manual) INR D-Dimer ABG pH 7.235 L POC ABG pCO2 69.7 H POC ABG pO2 61.0 L ABG pO2 ABG HCO3 ABG O2 Saturation ABG Base Excess ABG Hemoglobin ABG Oxyhemoglobin 89 L ABG Sodium 154.2 H ABG Potassium 5.4 H ABG Chloride 121.0 H ABG Glucose 247 H Oxyhemoglobin Carboxyhemoglobin Sodium Potassium Chloride Carbon Dioxide BUN Creatinine Glucose POC Glucose 238 H Hemoglobin A1c Lactic Acid Calcium Phosphorus Magnesium Ferritin Total Bilirubin AST ALT Lactate Dehydrogenase C-Reactive Protein Albumin Triglycerides Arterial Blood Glucose 247 H Arterial Blood Ionized Calcium Urine Creatinine Coronavirus (PCR) Crossmatch 01/30/21 01/30/21 01/30/21 06:00 11:28 12:00 WBC RBC Hgb Hct MCV MCH MCHC RDW Plt Count Lymph % (Auto) Lymph # (Auto) Seg Neutrophils % Seg Neuts % (Manual) Lymphocytes % (Manual) Nucleated RBC % Seg Neutrophils # Seg Neutrophils # Man Lymphocytes # (Manual) Eosinophils # (Manual) INR D-Dimer ABG pH POC ABG pCO2 POC ABG pO2 ABG pO2 ABG HCO3 ABG O2 Saturation ABG Base Excess ABG Hemoglobin ABG Oxyhemoglobin ABG Sodium ABG Potassium ABG Chloride ABG Glucose Oxyhemoglobin Carboxyhemoglobin Sodium 152 H Potassium 5.3 H Chloride 120.5 H Carbon Dioxide BUN 50 H Creatinine 2.3 H Glucose 239 H POC Glucose 153 H Hemoglobin A1c Lactic Acid Calcium 8.2 L Phosphorus Magnesium 2.60 H Ferritin Total Bilirubin AST ALT Lactate Dehydrogenase C-Reactive Protein Albumin Triglycerides 293 H Arterial Blood Glucose Arterial Blood Ionized Calcium Urine Creatinine 53.0 H Coronavirus (PCR) Crossmatch 01/30/21 01/30/21 01/31/21 18:49 23:06 04:00 WBC RBC Hgb Hct MCV MCH MCHC RDW Plt Count Lymph % (Auto) Lymph # (Auto) Seg Neutrophils % Seg Neuts % (Manual) Lymphocytes % (Manual) Nucleated RBC % Seg Neutrophils # Seg Neutrophils # Man Lymphocytes # (Manual) Eosinophils # (Manual) INR D-Dimer ABG pH POC ABG pCO2 POC ABG pO2 ABG pO2 ABG HCO3 ABG O2 Saturation ABG Base Excess ABG Hemoglobin ABG Oxyhemoglobin ABG Sodium ABG Potassium ABG Chloride ABG Glucose Oxyhemoglobin Carboxyhemoglobin Sodium 156 H Potassium 5.9 H Chloride 122.6 H Carbon Dioxide BUN 61 H Creatinine 3.2 H Glucose 205 H POC Glucose 220 H 192 H Hemoglobin A1c Lactic Acid Calcium 8.0 L Phosphorus Magnesium Ferritin Total Bilirubin AST ALT Lactate Dehydrogenase C-Reactive Protein Albumin Triglycerides Arterial Blood Glucose Arterial Blood Ionized Calcium Urine Creatinine Coronavirus (PCR) Crossmatch 01/31/21 01/31/21 01/31/21 04:40 05:17 11:33 WBC RBC Hgb Hct MCV MCH MCHC RDW Plt Count Lymph % (Auto) Lymph # (Auto) Seg Neutrophils % Seg Neuts % (Manual) Lymphocytes % (Manual) Nucleated RBC % Seg Neutrophils # Seg Neutrophils # Man Lymphocytes # (Manual) Eosinophils # (Manual) INR D-Dimer ABG pH 7.161 L* POC ABG pCO2 POC ABG pO2 ABG pO2 142.2 H ABG HCO3 28.3 H ABG O2 Saturation ABG Base Excess -3.2 L ABG Hemoglobin ABG Oxyhemoglobin ABG Sodium ABG Potassium ABG Chloride ABG Glucose Oxyhemoglobin Carboxyhemoglobin Sodium Potassium Chloride Carbon Dioxide BUN Creatinine Glucose POC Glucose 200 H 167 H Hemoglobin A1c Lactic Acid Calcium Phosphorus Magnesium Ferritin Total Bilirubin AST ALT Lactate Dehydrogenase C-Reactive Protein Albumin Triglycerides Arterial Blood Glucose Arterial Blood Ionized Calcium Urine Creatinine Coronavirus (PCR) Crossmatch 01/31/21 01/31/21 01/31/21 14:00 17:10 23:24 WBC RBC Hgb Hct MCV MCH MCHC RDW Plt Count Lymph % (Auto) Lymph # (Auto) Seg Neutrophils % Seg Neuts % (Manual) Lymphocytes % (Manual) Nucleated RBC % Seg Neutrophils # Seg Neutrophils # Man Lymphocytes # (Manual) Eosinophils # (Manual) INR D-Dimer ABG pH 7.205 L POC ABG pCO2 POC ABG pO2 ABG pO2 90.9 H ABG HCO3 26.5 H ABG O2 Saturation ABG Base Excess -2.7 L ABG Hemoglobin 12.3 L ABG Oxyhemoglobin ABG Sodium ABG Potassium ABG Chloride ABG Glucose Oxyhemoglobin 93.9 L Carboxyhemoglobin Sodium Potassium Chloride Carbon Dioxide BUN Creatinine Glucose POC Glucose 190 H 203 H Hemoglobin A1c Lactic Acid Calcium Phosphorus Magnesium Ferritin Total Bilirubin AST ALT Lactate Dehydrogenase C-Reactive Protein Albumin Triglycerides Arterial Blood Glucose Arterial Blood Ionized Calcium Urine Creatinine Coronavirus (PCR) Crossmatch 02/01/21 02/01/21 02/01/21 05:15 06:22 10:20 WBC RBC Hgb Hct MCV MCH MCHC RDW Plt Count Lymph % (Auto) Lymph # (Auto) Seg Neutrophils % Seg Neuts % (Manual) Lymphocytes % (Manual) Nucleated RBC % Seg Neutrophils # Seg Neutrophils # Man Lymphocytes # (Manual) Eosinophils # (Manual) INR D-Dimer ABG pH 6.920 L* 7.116 L* POC ABG pCO2 POC ABG pO2 ABG pO2 102.9 H 113.1 H ABG HCO3 28.2 H ABG O2 Saturation 92.9 L ABG Base Excess -6.9 L -5.8 L ABG Hemoglobin 11.6 L 9.5 L ABG Oxyhemoglobin ABG Sodium ABG Potassium ABG Chloride ABG Glucose Oxyhemoglobin 90.5 L 94.6 L Carboxyhemoglobin Sodium Potassium Chloride Carbon Dioxide BUN Creatinine Glucose POC Glucose 221 H Hemoglobin A1c Lactic Acid Calcium Phosphorus Magnesium Ferritin Total Bilirubin AST ALT Lactate Dehydrogenase C-Reactive Protein Albumin Triglycerides Arterial Blood Glucose Arterial Blood Ionized Calcium Urine Creatinine Coronavirus (PCR) Crossmatch 02/01/21 02/01/21 02/01/21 11:12 12:35 16:00 WBC RBC Hgb Hct MCV MCH MCHC RDW Plt Count Lymph % (Auto) Lymph # (Auto) Seg Neutrophils % Seg Neuts % (Manual) Lymphocytes % (Manual) Nucleated RBC % Seg Neutrophils # Seg Neutrophils # Man Lymphocytes # (Manual) Eosinophils # (Manual) INR D-Dimer ABG pH 7.155 L* POC ABG pCO2 POC ABG pO2 ABG pO2 94.6 H ABG HCO3 ABG O2 Saturation ABG Base Excess -6.5 L ABG Hemoglobin 13.1 L ABG Oxyhemoglobin ABG Sodium ABG Potassium ABG Chloride ABG Glucose Oxyhemoglobin 93.7 L Carboxyhemoglobin Sodium 155 H Potassium 5.1 H Chloride 120.5 H Carbon Dioxide BUN 90 H Creatinine 6.1 H D Glucose 238 H POC Glucose 207 H Hemoglobin A1c Lactic Acid Calcium 7.4 L Phosphorus Magnesium Ferritin Total Bilirubin AST ALT Lactate Dehydrogenase C-Reactive Protein Albumin Triglycerides Arterial Blood Glucose Arterial Blood Ionized Calcium Urine Creatinine Coronavirus (PCR) Crossmatch 02/01/21 02/01/21 02/02/21 17:10 23:47 04:04 WBC RBC 3.02 L Hgb 9.8 L Hct 30.7 L MCV 102 H MCH MCHC RDW 15.6 H Plt Count Lymph % (Auto) 4.2 L Lymph # (Auto) 0.3 L Seg Neutrophils % Seg Neuts % (Manual) Lymphocytes % (Manual) Nucleated RBC % Seg Neutrophils # Seg Neutrophils # Man Lymphocytes # (Manual) Eosinophils # (Manual) INR D-Dimer ABG pH POC ABG pCO2 POC ABG pO2 ABG pO2 ABG HCO3 ABG O2 Saturation ABG Base Excess ABG Hemoglobin ABG Oxyhemoglobin ABG Sodium ABG Potassium ABG Chloride ABG Glucose Oxyhemoglobin Carboxyhemoglobin Sodium Potassium Chloride Carbon Dioxide BUN Creatinine Glucose POC Glucose 238 H 235 H Hemoglobin A1c Lactic Acid Calcium Phosphorus Magnesium Ferritin Total Bilirubin AST ALT Lactate Dehydrogenase C-Reactive Protein Albumin Triglycerides Arterial Blood Glucose Arterial Blood Ionized Calcium Urine Creatinine Coronavirus (PCR) Crossmatch 02/02/21 02/02/21 02/02/21 05:18 05:35 11:28 WBC RBC Hgb Hct MCV MCH MCHC RDW Plt Count Lymph % (Auto) Lymph # (Auto) Seg Neutrophils % Seg Neuts % (Manual) Lymphocytes % (Manual) Nucleated RBC % Seg Neutrophils # Seg Neutrophils # Man Lymphocytes # (Manual) Eosinophils # (Manual) INR D-Dimer ABG pH 7.195 L* POC ABG pCO2 POC ABG pO2 ABG pO2 72.5 L ABG HCO3 ABG O2 Saturation 91.2 L ABG Base Excess -5.3 L ABG Hemoglobin 6.0 L ABG Oxyhemoglobin ABG Sodium ABG Potassium ABG Chloride ABG Glucose Oxyhemoglobin 89.1 L Carboxyhemoglobin Sodium Potassium Chloride 110.4 H Carbon Dioxide BUN 92 H Creatinine Glucose POC Glucose 239 H Hemoglobin A1c Lactic Acid Calcium Phosphorus Magnesium Ferritin Total Bilirubin AST ALT Lactate Dehydrogenase C-Reactive Protein Albumin Triglycerides Arterial Blood Glucose Arterial Blood Ionized Calcium Urine Creatinine Coronavirus (PCR) Crossmatch 02/02/21 02/02/21 02/02/21 11:53 16:00 18:04 WBC RBC Hgb Hct MCV MCH MCHC RDW Plt Count Lymph % (Auto) Lymph # (Auto) Seg Neutrophils % Seg Neuts % (Manual) Lymphocytes % (Manual) Nucleated RBC % Seg Neutrophils # Seg Neutrophils # Man Lymphocytes # (Manual) Eosinophils # (Manual) INR D-Dimer ABG pH POC ABG pCO2 POC ABG pO2 ABG pO2 ABG HCO3 ABG O2 Saturation ABG Base Excess ABG Hemoglobin ABG Oxyhemoglobin ABG Sodium ABG Potassium ABG Chloride ABG Glucose Oxyhemoglobin Carboxyhemoglobin Sodium Potassium Chloride Carbon Dioxide BUN Creatinine Glucose POC Glucose 248 H 199 H Hemoglobin A1c 6.3 H Lactic Acid Calcium Phosphorus Magnesium Ferritin Total Bilirubin AST ALT Lactate Dehydrogenase C-Reactive Protein Albumin Triglycerides Arterial Blood Glucose Arterial Blood Ionized Calcium Urine Creatinine Coronavirus (PCR) Crossmatch 02/02/21 02/03/21 02/03/21 23:31 03:12 04:10 WBC RBC 3.06 L Hgb 9.7 L Hct 30.4 L MCV 99 H MCH MCHC RDW 15.3 H Plt Count Lymph % (Auto) 6.1 L Lymph # (Auto) 0.5 L Seg Neutrophils % 86.1 H Seg Neuts % (Manual) Lymphocytes % (Manual) Nucleated RBC % Seg Neutrophils # Seg Neutrophils # Man Lymphocytes # (Manual) Eosinophils # (Manual) INR D-Dimer ABG pH 7.199 L POC ABG pCO2 48.3 H POC ABG pO2 68.3 L ABG pO2 ABG HCO3 ABG O2 Saturation ABG Base Excess ABG Hemoglobin 10.2 L ABG Oxyhemoglobin 89.2 L ABG Sodium 155.0 H ABG Potassium 4.6 H ABG Chloride 121.0 H ABG Glucose 166 H Oxyhemoglobin Carboxyhemoglobin 0.3 L Sodium Potassium Chloride Carbon Dioxide BUN Creatinine Glucose POC Glucose 200 H Hemoglobin A1c Lactic Acid Calcium Phosphorus Magnesium Ferritin Total Bilirubin AST ALT Lactate Dehydrogenase C-Reactive Protein Albumin Triglycerides Arterial Blood Glucose 166 H Arterial Blood Ionized Calcium 4.1 L Urine Creatinine Coronavirus (PCR) Crossmatch 02/03/21 02/03/21 02/03/21 04:10 05:34 11:51 WBC RBC Hgb Hct MCV MCH MCHC RDW Plt Count Lymph % (Auto) Lymph # (Auto) Seg Neutrophils % Seg Neuts % (Manual) Lymphocytes % (Manual) Nucleated RBC % Seg Neutrophils # Seg Neutrophils # Man Lymphocytes # (Manual) Eosinophils # (Manual) INR D-Dimer ABG pH POC ABG pCO2 POC ABG pO2 ABG pO2 ABG HCO3 ABG O2 Saturation ABG Base Excess ABG Hemoglobin ABG Oxyhemoglobin ABG Sodium ABG Potassium ABG Chloride ABG Glucose Oxyhemoglobin Carboxyhemoglobin Sodium 154 H D Potassium Chloride 116.7 H Carbon Dioxide 20 L BUN 130 H Creatinine 9.2 H D Glucose 160 H POC Glucose 130 H 154 H Hemoglobin A1c Lactic Acid Calcium 6.7 L Phosphorus 8.60 H Magnesium Ferritin Total Bilirubin AST ALT Lactate Dehydrogenase C-Reactive Protein Albumin Triglycerides Arterial Blood Glucose Arterial Blood Ionized Calcium Urine Creatinine Coronavirus (PCR) Crossmatch 02/03/21 02/03/21 02/04/21 16:49 23:22 03:48 WBC RBC Hgb Hct MCV MCH MCHC RDW Plt Count Lymph % (Auto) Lymph # (Auto) Seg Neutrophils % Seg Neuts % (Manual) Lymphocytes % (Manual) Nucleated RBC % Seg Neutrophils # Seg Neutrophils # Man Lymphocytes # (Manual) Eosinophils # (Manual) INR D-Dimer ABG pH 7.201 L POC ABG pCO2 54.5 H POC ABG pO2 74.0 L ABG pO2 ABG HCO3 ABG O2 Saturation ABG Base Excess ABG Hemoglobin 9.7 L ABG Oxyhemoglobin 91.1 L ABG Sodium 146.2 H ABG Potassium ABG Chloride 114.0 H ABG Glucose 155 H Oxyhemoglobin Carboxyhemoglobin Sodium Potassium Chloride Carbon Dioxide BUN Creatinine Glucose POC Glucose 164 H 152 H Hemoglobin A1c Lactic Acid Calcium Phosphorus Magnesium Ferritin Total Bilirubin AST ALT Lactate Dehydrogenase C-Reactive Protein Albumin Triglycerides Arterial Blood Glucose 155 H Arterial Blood Ionized Calcium 3.9 L Urine Creatinine Coronavirus (PCR) Crossmatch 02/04/21 02/04/21 02/04/21 04:45 04:45 04:45 WBC RBC 2.75 L Hgb 9.1 L Hct 26.9 L MCV 98 H MCH 33 H MCHC RDW Plt Count Lymph % (Auto) 6.8 L Lymph # (Auto) 0.5 L Seg Neutrophils % 87.2 H Seg Neuts % (Manual) Lymphocytes % (Manual) Nucleated RBC % Seg Neutrophils # Seg Neutrophils # Man Lymphocytes # (Manual) Eosinophils # (Manual) INR D-Dimer ABG pH POC ABG pCO2 POC ABG pO2 ABG pO2 ABG HCO3 ABG O2 Saturation ABG Base Excess ABG Hemoglobin ABG Oxyhemoglobin ABG Sodium ABG Potassium ABG Chloride ABG Glucose Oxyhemoglobin Carboxyhemoglobin Sodium 149 H Potassium Chloride 111.5 H Carbon Dioxide BUN 99 H Creatinine 8.5 H Glucose 139 H POC Glucose Hemoglobin A1c Lactic Acid Calcium 6.8 L Phosphorus 8.40 H Magnesium Ferritin Total Bilirubin AST ALT Lactate Dehydrogenase C-Reactive Protein Albumin Triglycerides Arterial Blood Glucose Arterial Blood Ionized Calcium Urine Creatinine Coronavirus (PCR) Crossmatch 02/04/21 02/04/21 02/04/21 06:05 11:44 18:00 WBC RBC Hgb Hct MCV MCH MCHC RDW Plt Count Lymph % (Auto) Lymph # (Auto) Seg Neutrophils % Seg Neuts % (Manual) Lymphocytes % (Manual) Nucleated RBC % Seg Neutrophils # Seg Neutrophils # Man Lymphocytes # (Manual) Eosinophils # (Manual) INR D-Dimer ABG pH POC ABG pCO2 POC ABG pO2 ABG pO2 ABG HCO3 ABG O2 Saturation ABG Base Excess ABG Hemoglobin ABG Oxyhemoglobin ABG Sodium ABG Potassium ABG Chloride ABG Glucose Oxyhemoglobin Carboxyhemoglobin Sodium Potassium Chloride Carbon Dioxide BUN Creatinine Glucose POC Glucose 138 H 129 H 163 H Hemoglobin A1c Lactic Acid Calcium Phosphorus Magnesium Ferritin Total Bilirubin AST ALT Lactate Dehydrogenase C-Reactive Protein Albumin Triglycerides Arterial Blood Glucose Arterial Blood Ionized Calcium Urine Creatinine Coronavirus (PCR) Crossmatch 02/04/21 02/05/21 02/05/21 23:48 01:50 01:50 WBC RBC 2.43 L Hgb 8.3 L Hct 23.6 L MCV 97 H MCH 34 H MCHC 35 H RDW Plt Count 137 L Lymph % (Auto) 8.4 L Lymph # (Auto) 0.6 L Seg Neutrophils % 86.1 H Seg Neuts % (Manual) Lymphocytes % (Manual) Nucleated RBC % Seg Neutrophils # Seg Neutrophils # Man Lymphocytes # (Manual) Eosinophils # (Manual) INR D-Dimer ABG pH POC ABG pCO2 POC ABG pO2 ABG pO2 ABG HCO3 ABG O2 Saturation ABG Base Excess ABG Hemoglobin ABG Oxyhemoglobin ABG Sodium ABG Potassium ABG Chloride ABG Glucose Oxyhemoglobin Carboxyhemoglobin Sodium Potassium Chloride Carbon Dioxide BUN Creatinine Glucose POC Glucose 157 H Hemoglobin A1c Lactic Acid Calcium Phosphorus 5.60 H D Magnesium Ferritin Total Bilirubin AST ALT Lactate Dehydrogenase C-Reactive Protein Albumin Triglycerides Arterial Blood Glucose Arterial Blood Ionized Calcium Urine Creatinine Coronavirus (PCR) Crossmatch 02/05/21 02/05/21 02/05/21 03:44 05:27 09:15 WBC RBC Hgb Hct MCV MCH MCHC RDW Plt Count Lymph % (Auto) Lymph # (Auto) Seg Neutrophils % Seg Neuts % (Manual) Lymphocytes % (Manual) Nucleated RBC % Seg Neutrophils # Seg Neutrophils # Man Lymphocytes # (Manual) Eosinophils # (Manual) INR D-Dimer ABG pH 7.202 L POC ABG pCO2 63.7 H POC ABG pO2 69.0 L ABG pO2 ABG HCO3 ABG O2 Saturation ABG Base Excess ABG Hemoglobin 9.4 L ABG Oxyhemoglobin ABG Sodium ABG Potassium ABG Chloride 108.0 H ABG Glucose 186 H Oxyhemoglobin Carboxyhemoglobin Sodium Potassium Chloride Carbon Dioxide BUN 78 H Creatinine 8.0 H Glucose 163 H POC Glucose 157 H Hemoglobin A1c Lactic Acid Calcium 6.3 L Phosphorus Magnesium Ferritin Total Bilirubin AST ALT Lactate Dehydrogenase C-Reactive Protein Albumin Triglycerides Arterial Blood Glucose 186 H Arterial Blood Ionized Calcium 3.9 L Urine Creatinine Coronavirus (PCR) Crossmatch 02/05/21 02/05/21 02/05/21 11:47 17:39 23:40 WBC RBC Hgb Hct MCV MCH MCHC RDW Plt Count Lymph % (Auto) Lymph # (Auto) Seg Neutrophils % Seg Neuts % (Manual) Lymphocytes % (Manual) Nucleated RBC % Seg Neutrophils # Seg Neutrophils # Man Lymphocytes # (Manual) Eosinophils # (Manual) INR D-Dimer ABG pH 7.273 L POC ABG pCO2 62.1 H POC ABG pO2 72.0 L ABG pO2 ABG HCO3 ABG O2 Saturation ABG Base Excess ABG Hemoglobin 9.1 L ABG Oxyhemoglobin 91.3 L ABG Sodium ABG Potassium 3.1 L ABG Chloride ABG Glucose 125 H Oxyhemoglobin Carboxyhemoglobin Sodium Potassium Chloride Carbon Dioxide BUN Creatinine Glucose POC Glucose 126 H 126 H Hemoglobin A1c Lactic Acid Calcium Phosphorus Magnesium Ferritin Total Bilirubin AST ALT Lactate Dehydrogenase C-Reactive Protein Albumin Triglycerides Arterial Blood Glucose 125 H Arterial Blood Ionized Calcium 4.0 L Urine Creatinine Coronavirus (PCR) Crossmatch 02/06/21 02/06/21 02/06/21 04:30 04:57 09:45 WBC RBC Hgb Hct MCV MCH MCHC RDW Plt Count Lymph % (Auto) Lymph # (Auto) Seg Neutrophils % Seg Neuts % (Manual) Lymphocytes % (Manual) Nucleated RBC % Seg Neutrophils # Seg Neutrophils # Man Lymphocytes # (Manual) Eosinophils # (Manual) INR D-Dimer ABG pH 7.159 L 7.138 L* POC ABG pCO2 76.3 H POC ABG pO2 66.9 L ABG pO2 ABG HCO3 ABG O2 Saturation 93.4 L ABG Base Excess -6.0 L ABG Hemoglobin 11.2 L 11.7 L ABG Oxyhemoglobin 88.2 L ABG Sodium ABG Potassium ABG Chloride ABG Glucose 134 H Oxyhemoglobin 91.2 L Carboxyhemoglobin Sodium Potassium Chloride Carbon Dioxide BUN Creatinine Glucose POC Glucose 124 H Hemoglobin A1c Lactic Acid Calcium Phosphorus Magnesium Ferritin Total Bilirubin AST ALT Lactate Dehydrogenase C-Reactive Protein Albumin Triglycerides Arterial Blood Glucose 134 H Arterial Blood Ionized Calcium 3.9 L Urine Creatinine Coronavirus (PCR) Crossmatch 02/06/21 02/06/21 02/06/21 11:11 17:00 17:00 WBC RBC Hgb Hct MCV MCH MCHC RDW Plt Count Lymph % (Auto) Lymph # (Auto) Seg Neutrophils % Seg Neuts % (Manual) Lymphocytes % (Manual) Nucleated RBC % Seg Neutrophils # Seg Neutrophils # Man Lymphocytes # (Manual) Eosinophils # (Manual) INR D-Dimer ABG pH 7.158 L* POC ABG pCO2 POC ABG pO2 ABG pO2 109.8 H ABG HCO3 28.7 H ABG O2 Saturation ABG Base Excess -2.5 L ABG Hemoglobin ABG Oxyhemoglobin ABG Sodium ABG Potassium ABG Chloride ABG Glucose Oxyhemoglobin 94.5 L Carboxyhemoglobin Sodium Potassium Chloride Carbon Dioxide BUN Creatinine Glucose POC Glucose 120 H Hemoglobin A1c Lactic Acid Calcium Phosphorus Magnesium Ferritin Total Bilirubin AST ALT Lactate Dehydrogenase C-Reactive Protein Albumin Triglycerides 503 H Arterial Blood Glucose Arterial Blood Ionized Calcium Urine Creatinine Coronavirus (PCR) Crossmatch 02/06/21 02/06/21 02/06/21 17:28 20:16 Unknown WBC 13.5 H RBC 2.98 L Hgb 9.3 L Hct 28.6 L MCV 96 H MCH MCHC RDW Plt Count Lymph % (Auto) Lymph # (Auto) Seg Neutrophils % Seg Neuts % (Manual) 87.0 H Lymphocytes % (Manual) 7.0 L Nucleated RBC % Seg Neutrophils # Seg Neutrophils # Man 11.7 H Lymphocytes # (Manual) 0.9 L Eosinophils # (Manual) 0.5 H INR D-Dimer ABG pH POC ABG pCO2 POC ABG pO2 ABG pO2 ABG HCO3 ABG O2 Saturation ABG Base Excess ABG Hemoglobin ABG Oxyhemoglobin ABG Sodium ABG Potassium ABG Chloride ABG Glucose Oxyhemoglobin Carboxyhemoglobin Sodium Potassium Chloride Carbon Dioxide BUN Creatinine Glucose POC Glucose 147 H 164 H Hemoglobin A1c Lactic Acid Calcium Phosphorus Magnesium Ferritin Total Bilirubin AST ALT Lactate Dehydrogenase C-Reactive Protein Albumin Triglycerides Arterial Blood Glucose Arterial Blood Ionized Calcium Urine Creatinine Coronavirus (PCR) Crossmatch 02/06/21 02/07/21 02/07/21 Unknown 01:21 04:00 WBC 12.0 H RBC 2.61 L Hgb 8.2 L Hct 24.5 L MCV MCH MCHC RDW Plt Count Lymph % (Auto) 8.9 L Lymph # (Auto) 1.1 L Seg Neutrophils % 86.3 H Seg Neuts % (Manual) Lymphocytes % (Manual) Nucleated RBC % Seg Neutrophils # 10.3 H Seg Neutrophils # Man Lymphocytes # (Manual) Eosinophils # (Manual) INR D-Dimer ABG pH POC ABG pCO2 POC ABG pO2 ABG pO2 ABG HCO3 ABG O2 Saturation ABG Base Excess ABG Hemoglobin ABG Oxyhemoglobin ABG Sodium ABG Potassium ABG Chloride ABG Glucose Oxyhemoglobin Carboxyhemoglobin Sodium Potassium 3.5 L Chloride Carbon Dioxide BUN 58 H Creatinine 6.6 H Glucose 107 H POC Glucose 173 H Hemoglobin A1c Lactic Acid Calcium 6.7 L Phosphorus 8.00 H D Magnesium Ferritin Total Bilirubin AST ALT Lactate Dehydrogenase C-Reactive Protein Albumin Triglycerides Arterial Blood Glucose Arterial Blood Ionized Calcium Urine Creatinine Coronavirus (PCR) Crossmatch 02/07/21 02/07/21 02/07/21 04:00 04:45 11:49 WBC RBC Hgb Hct MCV MCH MCHC RDW Plt Count Lymph % (Auto) Lymph # (Auto) Seg Neutrophils % Seg Neuts % (Manual) Lymphocytes % (Manual) Nucleated RBC % Seg Neutrophils # Seg Neutrophils # Man Lymphocytes # (Manual) Eosinophils # (Manual) INR D-Dimer ABG pH 7.287 L POC ABG pCO2 64.8 H POC ABG pO2 74.0 L ABG pO2 ABG HCO3 ABG O2 Saturation ABG Base Excess ABG Hemoglobin 9.1 L ABG Oxyhemoglobin 92.0 L ABG Sodium ABG Potassium 2.8 L ABG Chloride ABG Glucose 226 H Oxyhemoglobin Carboxyhemoglobin Sodium Potassium Chloride Carbon Dioxide BUN Creatinine Glucose POC Glucose 170 H Hemoglobin A1c Lactic Acid Calcium Phosphorus 5.50 H D Magnesium Ferritin Total Bilirubin AST ALT Lactate Dehydrogenase C-Reactive Protein Albumin Triglycerides Arterial Blood Glucose 226 H Arterial Blood Ionized Calcium 3.7 L Urine Creatinine Coronavirus (PCR) Crossmatch 02/07/21 02/07/21 02/07/21 13:48 17:45 23:02 WBC RBC Hgb Hct MCV MCH MCHC RDW Plt Count Lymph % (Auto) Lymph # (Auto) Seg Neutrophils % Seg Neuts % (Manual) Lymphocytes % (Manual) Nucleated RBC % Seg Neutrophils # Seg Neutrophils # Man Lymphocytes # (Manual) Eosinophils # (Manual) INR D-Dimer ABG pH POC ABG pCO2 POC ABG pO2 ABG pO2 ABG HCO3 ABG O2 Saturation ABG Base Excess ABG Hemoglobin ABG Oxyhemoglobin ABG Sodium ABG Potassium ABG Chloride ABG Glucose Oxyhemoglobin Carboxyhemoglobin Sodium 136 L Potassium 2.6 L* D Chloride 95.1 L Carbon Dioxide 33 H D BUN 30 H Creatinine 3.6 H Glucose 184 H POC Glucose 172 H 172 H Hemoglobin A1c Lactic Acid Calcium 6.9 L Phosphorus Magnesium Ferritin Total Bilirubin AST ALT Lactate Dehydrogenase C-Reactive Protein Albumin Triglycerides Arterial Blood Glucose Arterial Blood Ionized Calcium Urine Creatinine Coronavirus (PCR) Crossmatch 02/08/21 02/08/21 02/08/21 05:22 06:00 06:00 WBC RBC 2.21 L Hgb 7.2 L Hct 21.0 L MCV 95 H MCH MCHC RDW Plt Count Lymph % (Auto) Lymph # (Auto) Seg Neutrophils % Seg Neuts % (Manual) 87.0 H Lymphocytes % (Manual) 4.0 L Nucleated RBC % Seg Neutrophils # Seg Neutrophils # Man 8.5 H Lymphocytes # (Manual) 0.4 L Eosinophils # (Manual) INR D-Dimer ABG pH POC ABG pCO2 POC ABG pO2 ABG pO2 ABG HCO3 ABG O2 Saturation ABG Base Excess ABG Hemoglobin ABG Oxyhemoglobin ABG Sodium ABG Potassium ABG Chloride ABG Glucose Oxyhemoglobin Carboxyhemoglobin Sodium 136 L Potassium 2.4 L* Chloride 93.1 L Carbon Dioxide 36 H BUN 43 H Creatinine 5.4 H Glucose 167 H POC Glucose 162 H Hemoglobin A1c Lactic Acid Calcium 6.3 L Phosphorus Magnesium Ferritin Total Bilirubin AST ALT Lactate Dehydrogenase C-Reactive Protein Albumin Triglycerides Arterial Blood Glucose Arterial Blood Ionized Calcium Urine Creatinine Coronavirus (PCR) Crossmatch 02/08/21 02/08/21 02/08/21 11:44 17:53 18:56 WBC RBC Hgb Hct MCV MCH MCHC RDW Plt Count Lymph % (Auto) Lymph # (Auto) Seg Neutrophils % Seg Neuts % (Manual) Lymphocytes % (Manual) Nucleated RBC % Seg Neutrophils # Seg Neutrophils # Man Lymphocytes # (Manual) Eosinophils # (Manual) INR D-Dimer ABG pH POC ABG pCO2 POC ABG pO2 ABG pO2 ABG HCO3 ABG O2 Saturation ABG Base Excess ABG Hemoglobin ABG Oxyhemoglobin ABG Sodium ABG Potassium ABG Chloride ABG Glucose Oxyhemoglobin Carboxyhemoglobin Sodium Potassium 2.9 L* D Chloride Carbon Dioxide BUN Creatinine Glucose POC Glucose 164 H 154 H Hemoglobin A1c Lactic Acid Calcium Phosphorus Magnesium Ferritin Total Bilirubin AST ALT Lactate Dehydrogenase C-Reactive Protein Albumin Triglycerides Arterial Blood Glucose Arterial Blood Ionized Calcium Urine Creatinine Coronavirus (PCR) Crossmatch 02/08/21 02/08/21 02/09/21 23:24 23:58 03:21 WBC RBC Hgb Hct MCV MCH MCHC RDW Plt Count Lymph % (Auto) Lymph # (Auto) Seg Neutrophils % Seg Neuts % (Manual) Lymphocytes % (Manual) Nucleated RBC % Seg Neutrophils # Seg Neutrophils # Man Lymphocytes # (Manual) Eosinophils # (Manual) INR D-Dimer ABG pH 7.319 L POC ABG pCO2 63.3 H 68.3 H POC ABG pO2 71.2 L 76.5 L ABG pO2 ABG HCO3 ABG O2 Saturation ABG Base Excess ABG Hemoglobin 8.2 L 7.0 L ABG Oxyhemoglobin 91.8 L 92.2 L ABG Sodium 134.6 L 133.0 L ABG Potassium 2.3 L 3.1 L ABG Chloride 96.0 L 95.0 L ABG Glucose 184 H 154 H Oxyhemoglobin Carboxyhemoglobin Sodium Potassium Chloride Carbon Dioxide BUN Creatinine Glucose POC Glucose 152 H Hemoglobin A1c Lactic Acid Calcium Phosphorus Magnesium Ferritin Total Bilirubin AST ALT Lactate Dehydrogenase C-Reactive Protein Albumin Triglycerides Arterial Blood Glucose 184 H 154 H Arterial Blood Ionized Calcium 3.6 L 3.5 L Urine Creatinine Coronavirus (PCR) Crossmatch 02/09/21 02/09/21 02/09/21 05:10 05:10 06:04 WBC RBC 2.14 L Hgb 7.0 L Hct 20.5 L MCV 96 H MCH 33 H MCHC RDW Plt Count Lymph % (Auto) Lymph # (Auto) Seg Neutrophils % Seg Neuts % (Manual) 82.0 H Lymphocytes % (Manual) 9.0 L Nucleated RBC % 1.0 H Seg Neutrophils # Seg Neutrophils # Man 8.9 H Lymphocytes # (Manual) 1.0 L Eosinophils # (Manual) INR D-Dimer ABG pH POC ABG pCO2 POC ABG pO2 ABG pO2 ABG HCO3 ABG O2 Saturation ABG Base Excess ABG Hemoglobin ABG Oxyhemoglobin ABG Sodium ABG Potassium ABG Chloride ABG Glucose Oxyhemoglobin Carboxyhemoglobin Sodium 135 L Potassium 3.2 L Chloride 91.0 L Carbon Dioxide 32 H BUN 54 H Creatinine 6.6 H Glucose 163 H POC Glucose 149 H Hemoglobin A1c Lactic Acid Calcium 6.2 L Phosphorus Magnesium Ferritin Total Bilirubin AST ALT Lactate Dehydrogenase C-Reactive Protein Albumin Triglycerides Arterial Blood Glucose Arterial Blood Ionized Calcium Urine Creatinine Coronavirus (PCR) Crossmatch 02/09/21 02/09/21 02/09/21 12:02 13:32 13:40 WBC RBC Hgb Hct MCV MCH MCHC RDW Plt Count Lymph % (Auto) Lymph # (Auto) Seg Neutrophils % Seg Neuts % (Manual) Lymphocytes % (Manual) Nucleated RBC % Seg Neutrophils # Seg Neutrophils # Man Lymphocytes # (Manual) Eosinophils # (Manual) INR D-Dimer ABG pH POC ABG pCO2 POC ABG pO2 ABG pO2 ABG HCO3 ABG O2 Saturation ABG Base Excess ABG Hemoglobin ABG Oxyhemoglobin ABG Sodium ABG Potassium ABG Chloride ABG Glucose Oxyhemoglobin Carboxyhemoglobin Sodium Potassium Chloride Carbon Dioxide BUN Creatinine Glucose POC Glucose 147 H Hemoglobin A1c Lactic Acid Calcium Phosphorus Magnesium Ferritin Total Bilirubin AST ALT Lactate Dehydrogenase C-Reactive Protein Albumin Triglycerides 250 H Arterial Blood Glucose Arterial Blood Ionized Calcium Urine Creatinine Coronavirus (PCR) Crossmatch See Detail 02/09/21 02/09/21 02/10/21 18:06 23:42 04:00 WBC RBC Hgb Hct MCV MCH MCHC RDW Plt Count Lymph % (Auto) Lymph # (Auto) Seg Neutrophils % Seg Neuts % (Manual) Lymphocytes % (Manual) Nucleated RBC % Seg Neutrophils # Seg Neutrophils # Man Lymphocytes # (Manual) Eosinophils # (Manual) INR D-Dimer ABG pH POC ABG pCO2 65.8 H POC ABG pO2 68.0 L ABG pO2 ABG HCO3 ABG O2 Saturation ABG Base Excess ABG Hemoglobin 8.3 L ABG Oxyhemoglobin ABG Sodium 132.4 L ABG Potassium 2.9 L ABG Chloride 92.0 L ABG Glucose 174 H Oxyhemoglobin Carboxyhemoglobin Sodium Potassium Chloride Carbon Dioxide BUN Creatinine Glucose POC Glucose 152 H 147 H Hemoglobin A1c Lactic Acid Calcium Phosphorus Magnesium Ferritin Total Bilirubin AST ALT Lactate Dehydrogenase C-Reactive Protein Albumin Triglycerides Arterial Blood Glucose 174 H Arterial Blood Ionized Calcium 3.4 L Urine Creatinine Coronavirus (PCR) Crossmatch 02/10/21 02/10/21 02/10/21 05:32 11:29 14:08 WBC 12.5 H RBC 2.14 L Hgb 6.6 L Hct 20.2 L MCV MCH MCHC RDW Plt Count Lymph % (Auto) Lymph # (Auto) Seg Neutrophils % Seg Neuts % (Manual) Lymphocytes % (Manual) Nucleated RBC % Seg Neutrophils # Seg Neutrophils # Man Lymphocytes # (Manual) Eosinophils # (Manual) INR D-Dimer ABG pH POC ABG pCO2 POC ABG pO2 ABG pO2 ABG HCO3 ABG O2 Saturation ABG Base Excess ABG Hemoglobin ABG Oxyhemoglobin ABG Sodium ABG Potassium ABG Chloride ABG Glucose Oxyhemoglobin Carboxyhemoglobin Sodium Potassium Chloride Carbon Dioxide BUN Creatinine Glucose POC Glucose 167 H 147 H Hemoglobin A1c Lactic Acid Calcium Phosphorus Magnesium Ferritin Total Bilirubin AST ALT Lactate Dehydrogenase C-Reactive Protein Albumin Triglycerides Arterial Blood Glucose Arterial Blood Ionized Calcium Urine Creatinine Coronavirus (PCR) Crossmatch 02/10/21 02/10/21 02/10/21 14:08 18:11 22:32 WBC RBC Hgb 6.4 L Hct 19.1 L* MCV MCH MCHC RDW Plt Count Lymph % (Auto) Lymph # (Auto) Seg Neutrophils % Seg Neuts % (Manual) Lymphocytes % (Manual) Nucleated RBC % Seg Neutrophils # Seg Neutrophils # Man Lymphocytes # (Manual) Eosinophils # (Manual) INR D-Dimer ABG pH POC ABG pCO2 POC ABG pO2 ABG pO2 ABG HCO3 ABG O2 Saturation ABG Base Excess ABG Hemoglobin ABG Oxyhemoglobin ABG Sodium ABG Potassium ABG Chloride ABG Glucose Oxyhemoglobin Carboxyhemoglobin Sodium 136 L Potassium 2.9 L* Chloride 90.2 L Carbon Dioxide 33 H BUN 42 H Creatinine 7.5 H Glucose 155 H POC Glucose 173 H Hemoglobin A1c Lactic Acid Calcium 6.1 L Phosphorus Magnesium Ferritin Total Bilirubin AST ALT Lactate Dehydrogenase C-Reactive Protein Albumin Triglycerides Arterial Blood Glucose Arterial Blood Ionized Calcium Urine Creatinine Coronavirus (PCR) Crossmatch 02/11/21 02/11/21 02/11/21 00:28 04:05 04:30 WBC RBC Hgb Hct MCV MCH MCHC RDW Plt Count Lymph % (Auto) Lymph # (Auto) Seg Neutrophils % Seg Neuts % (Manual) Lymphocytes % (Manual) Nucleated RBC % Seg Neutrophils # Seg Neutrophils # Man Lymphocytes # (Manual) Eosinophils # (Manual) INR D-Dimer ABG pH 7.307 L POC ABG pCO2 72.2 H POC ABG pO2 72.3 L ABG pO2 ABG HCO3 ABG O2 Saturation ABG Base Excess ABG Hemoglobin 8.2 L ABG Oxyhemoglobin ABG Sodium 132.3 L ABG Potassium 3.2 L ABG Chloride 91.0 L ABG Glucose 197 H Oxyhemoglobin Carboxyhemoglobin Sodium 135 L Potassium 3.3 L Chloride 87.1 L Carbon Dioxide 36 H BUN 71 H Creatinine 7.9 H Glucose 263 H POC Glucose 192 H Hemoglobin A1c Lactic Acid Calcium 6.2 L Phosphorus Magnesium Ferritin Total Bilirubin AST ALT Lactate Dehydrogenase C-Reactive Protein Albumin Triglycerides Arterial Blood Glucose 197 H Arterial Blood Ionized Calcium 3.3 L Urine Creatinine Coronavirus (PCR) Crossmatch 02/11/21 02/11/21 02/11/21 04:30 05:47 08:27 WBC RBC 2.22 L Hgb 7.2 L Hct 21.0 L MCV MCH MCHC RDW Plt Count Lymph % (Auto) 8.7 L Lymph # (Auto) 0.9 L Seg Neutrophils % 85.5 H Seg Neuts % (Manual) Lymphocytes % (Manual) Nucleated RBC % Seg Neutrophils # 9.2 H Seg Neutrophils # Man Lymphocytes # (Manual) Eosinophils # (Manual) INR 1.17 H D-Dimer 1930.92 H ABG pH POC ABG pCO2 POC ABG pO2 ABG pO2 ABG HCO3 ABG O2 Saturation ABG Base Excess ABG Hemoglobin ABG Oxyhemoglobin ABG Sodium ABG Potassium ABG Chloride ABG Glucose Oxyhemoglobin Carboxyhemoglobin Sodium Potassium Chloride Carbon Dioxide BUN Creatinine Glucose POC Glucose 189 H Hemoglobin A1c Lactic Acid Calcium Phosphorus Magnesium Ferritin Total Bilirubin AST ALT Lactate Dehydrogenase C-Reactive Protein Albumin Triglycerides Arterial Blood Glucose Arterial Blood Ionized Calcium Urine Creatinine Coronavirus (PCR) Crossmatch 02/11/21 02/11/21 02/11/21 09:00 09:00 13:18 WBC RBC Hgb Hct MCV MCH MCHC RDW Plt Count Lymph % (Auto) Lymph # (Auto) Seg Neutrophils % Seg Neuts % (Manual) Lymphocytes % (Manual) Nucleated RBC % Seg Neutrophils # Seg Neutrophils # Man Lymphocytes # (Manual) Eosinophils # (Manual) INR D-Dimer ABG pH POC ABG pCO2 POC ABG pO2 ABG pO2 ABG HCO3 ABG O2 Saturation ABG Base Excess ABG Hemoglobin ABG Oxyhemoglobin ABG Sodium ABG Potassium ABG Chloride ABG Glucose Oxyhemoglobin Carboxyhemoglobin Sodium Potassium Chloride Carbon Dioxide BUN Creatinine Glucose 126 H POC Glucose 160 H Hemoglobin A1c Lactic Acid Calcium Phosphorus Magnesium Ferritin 1253.0 H Total Bilirubin AST ALT Lactate Dehydrogenase 649 H C-Reactive Protein 12.60 H Albumin Triglycerides Arterial Blood Glucose Arterial Blood Ionized Calcium Urine Creatinine Coronavirus (PCR) Crossmatch 02/11/21 02/11/21 02/11/21 14:30 16:59 22:34 WBC RBC Hgb 7.1 L 6.7 L Hct 20.5 L 19.9 L* MCV MCH MCHC RDW Plt Count Lymph % (Auto) Lymph # (Auto) Seg Neutrophils % Seg Neuts % (Manual) Lymphocytes % (Manual) Nucleated RBC % Seg Neutrophils # Seg Neutrophils # Man Lymphocytes # (Manual) Eosinophils # (Manual) INR D-Dimer ABG pH POC ABG pCO2 POC ABG pO2 ABG pO2 ABG HCO3 ABG O2 Saturation ABG Base Excess ABG Hemoglobin ABG Oxyhemoglobin ABG Sodium ABG Potassium ABG Chloride ABG Glucose Oxyhemoglobin Carboxyhemoglobin Sodium Potassium Chloride Carbon Dioxide BUN Creatinine Glucose POC Glucose 151 H Hemoglobin A1c Lactic Acid Calcium Phosphorus Magnesium Ferritin Total Bilirubin AST ALT Lactate Dehydrogenase C-Reactive Protein Albumin Triglycerides Arterial Blood Glucose Arterial Blood Ionized Calcium Urine Creatinine Coronavirus (PCR) Crossmatch 02/11/21 02/12/21 02/12/21 23:42 04:41 05:19 WBC RBC Hgb Hct MCV MCH MCHC RDW Plt Count Lymph % (Auto) Lymph # (Auto) Seg Neutrophils % Seg Neuts % (Manual) Lymphocytes % (Manual) Nucleated RBC % Seg Neutrophils # Seg Neutrophils # Man Lymphocytes # (Manual) Eosinophils # (Manual) INR D-Dimer ABG pH POC ABG pCO2 POC ABG pO2 ABG pO2 69.0 L ABG HCO3 32.5 H ABG O2 Saturation ABG Base Excess 7.7 H ABG Hemoglobin 5.1 L ABG Oxyhemoglobin ABG Sodium ABG Potassium ABG Chloride ABG Glucose Oxyhemoglobin 94.7 L Carboxyhemoglobin Sodium Potassium Chloride Carbon Dioxide BUN Creatinine Glucose POC Glucose 165 H 153 H Hemoglobin A1c Lactic Acid Calcium Phosphorus Magnesium Ferritin Total Bilirubin AST ALT Lactate Dehydrogenase C-Reactive Protein Albumin Triglycerides Arterial Blood Glucose Arterial Blood Ionized Calcium Urine Creatinine Coronavirus (PCR) Crossmatch 02/12/21 02/12/21 02/12/21 06:35 06:35 08:40 WBC RBC 2.21 L Hgb 7.2 L Hct 20.7 L MCV MCH 33 H MCHC 35 H RDW Plt Count Lymph % (Auto) Lymph # (Auto) Seg Neutrophils % Seg Neuts % (Manual) Lymphocytes % (Manual) Nucleated RBC % Seg Neutrophils # Seg Neutrophils # Man Lymphocytes # (Manual) Eosinophils # (Manual) INR D-Dimer ABG pH POC ABG pCO2 POC ABG pO2 ABG pO2 ABG HCO3 ABG O2 Saturation ABG Base Excess ABG Hemoglobin ABG Oxyhemoglobin ABG Sodium ABG Potassium ABG Chloride ABG Glucose Oxyhemoglobin Carboxyhemoglobin Sodium 135 L Potassium 3.4 L Chloride 91.8 L Carbon Dioxide 36 H BUN 57 H Creatinine 6.8 H Glucose 163 H POC Glucose Hemoglobin A1c Lactic Acid Calcium 7.0 L Phosphorus Magnesium 1.60 L Ferritin Total Bilirubin AST ALT Lactate Dehydrogenase C-Reactive Protein Albumin Triglycerides Arterial Blood Glucose Arterial Blood Ionized Calcium Urine Creatinine Coronavirus (PCR) Crossmatch 02/12/21 02/12/21 02/12/21 10:45 12:04 17:19 WBC RBC Hgb Hct MCV MCH MCHC RDW Plt Count Lymph % (Auto) Lymph # (Auto) Seg Neutrophils % Seg Neuts % (Manual) Lymphocytes % (Manual) Nucleated RBC % Seg Neutrophils # Seg Neutrophils # Man Lymphocytes # (Manual) Eosinophils # (Manual) INR D-Dimer ABG pH POC ABG pCO2 POC ABG pO2 ABG pO2 ABG HCO3 ABG O2 Saturation ABG Base Excess ABG Hemoglobin ABG Oxyhemoglobin ABG Sodium ABG Potassium ABG Chloride ABG Glucose Oxyhemoglobin Carboxyhemoglobin Sodium Potassium Chloride Carbon Dioxide BUN Creatinine Glucose POC Glucose 165 H 165 H Hemoglobin A1c Lactic Acid Calcium Phosphorus Magnesium Ferritin Total Bilirubin AST ALT Lactate Dehydrogenase C-Reactive Protein Albumin Triglycerides 182 H Arterial Blood Glucose Arterial Blood Ionized Calcium Urine Creatinine Coronavirus (PCR) Crossmatch 02/12/21 02/13/21 02/13/21 23:18 05:00 05:36 WBC RBC Hgb Hct MCV MCH MCHC RDW Plt Count Lymph % (Auto) Lymph # (Auto) Seg Neutrophils % Seg Neuts % (Manual) Lymphocytes % (Manual) Nucleated RBC % Seg Neutrophils # Seg Neutrophils # Man Lymphocytes # (Manual) Eosinophils # (Manual) INR D-Dimer ABG pH POC ABG pCO2 60.8 H POC ABG pO2 76.4 L ABG pO2 ABG HCO3 ABG O2 Saturation ABG Base Excess ABG Hemoglobin 7.4 L ABG Oxyhemoglobin ABG Sodium 133.2 L ABG Potassium 3.3 L ABG Chloride 96.0 L ABG Glucose 168 H Oxyhemoglobin Carboxyhemoglobin Sodium Potassium Chloride Carbon Dioxide BUN Creatinine Glucose POC Glucose 163 H 151 H Hemoglobin A1c Lactic Acid Calcium Phosphorus Magnesium Ferritin Total Bilirubin AST ALT Lactate Dehydrogenase C-Reactive Protein Albumin Triglycerides Arterial Blood Glucose 168 H Arterial Blood Ionized Calcium 4.3 L Urine Creatinine Coronavirus (PCR) Crossmatch 02/13/21 02/13/21 02/13/21 06:40 06:40 06:40 WBC RBC 2.19 L Hgb 7.0 L Hct 20.8 L MCV 95 H MCH MCHC RDW Plt Count Lymph % (Auto) Lymph # (Auto) Seg Neutrophils % Seg Neuts % (Manual) Lymphocytes % (Manual) Nucleated RBC % Seg Neutrophils # Seg Neutrophils # Man Lymphocytes # (Manual) Eosinophils # (Manual) INR D-Dimer ABG pH POC ABG pCO2 POC ABG pO2 ABG pO2 ABG HCO3 ABG O2 Saturation ABG Base Excess ABG Hemoglobin ABG Oxyhemoglobin ABG Sodium ABG Potassium ABG Chloride ABG Glucose Oxyhemoglobin Carboxyhemoglobin Sodium 135 L Potassium 3.4 L Chloride 93.0 L Carbon Dioxide 32 H BUN 46 H Creatinine 5.8 H Glucose 148 H POC Glucose Hemoglobin A1c Lactic Acid Calcium 7.9 L Phosphorus Magnesium Ferritin Total Bilirubin AST ALT Lactate Dehydrogenase C-Reactive Protein 16.80 H Albumin Triglycerides Arterial Blood Glucose Arterial Blood Ionized Calcium Urine Creatinine Coronavirus (PCR) Crossmatch 02/13/21 02/13/21 02/13/21 06:40 07:38 07:38 WBC RBC Hgb Hct MCV MCH MCHC RDW Plt Count Lymph % (Auto) Lymph # (Auto) Seg Neutrophils % Seg Neuts % (Manual) Lymphocytes % (Manual) Nucleated RBC % Seg Neutrophils # Seg Neutrophils # Man Lymphocytes # (Manual) Eosinophils # (Manual) INR D-Dimer 1722.16 H ABG pH POC ABG pCO2 POC ABG pO2 ABG pO2 ABG HCO3 ABG O2 Saturation ABG Base Excess ABG Hemoglobin ABG Oxyhemoglobin ABG Sodium ABG Potassium ABG Chloride ABG Glucose Oxyhemoglobin Carboxyhemoglobin Sodium Potassium Chloride Carbon Dioxide BUN Creatinine Glucose POC Glucose Hemoglobin A1c Lactic Acid Calcium Phosphorus Magnesium 1.60 L Ferritin 976.5 H Total Bilirubin AST ALT Lactate Dehydrogenase C-Reactive Protein Albumin Triglycerides Arterial Blood Glucose Arterial Blood Ionized Calcium Urine Creatinine Coronavirus (PCR) Crossmatch 02/13/21 02/13/21 02/13/21 12:24 16:57 23:32 WBC RBC Hgb Hct MCV MCH MCHC RDW Plt Count Lymph % (Auto) Lymph # (Auto) Seg Neutrophils % Seg Neuts % (Manual) Lymphocytes % (Manual) Nucleated RBC % Seg Neutrophils # Seg Neutrophils # Man Lymphocytes # (Manual) Eosinophils # (Manual) INR D-Dimer ABG pH POC ABG pCO2 POC ABG pO2 ABG pO2 ABG HCO3 ABG O2 Saturation ABG Base Excess ABG Hemoglobin ABG Oxyhemoglobin ABG Sodium ABG Potassium ABG Chloride ABG Glucose Oxyhemoglobin Carboxyhemoglobin Sodium Potassium Chloride Carbon Dioxide BUN Creatinine Glucose POC Glucose 141 H 156 H 161 H Hemoglobin A1c Lactic Acid Calcium Phosphorus Magnesium Ferritin Total Bilirubin AST ALT Lactate Dehydrogenase C-Reactive Protein Albumin Triglycerides Arterial Blood Glucose Arterial Blood Ionized Calcium Urine Creatinine Coronavirus (PCR) Crossmatch 02/14/21 02/14/21 02/14/21 04:00 05:41 11:00 WBC RBC 2.14 L Hgb 6.9 L Hct 20.7 L MCV 97 H MCH 33 H MCHC RDW Plt Count Lymph % (Auto) Lymph # (Auto) Seg Neutrophils % Seg Neuts % (Manual) Lymphocytes % (Manual) Nucleated RBC % Seg Neutrophils # Seg Neutrophils # Man Lymphocytes # (Manual) Eosinophils # (Manual) INR D-Dimer ABG pH POC ABG pCO2 POC ABG pO2 ABG pO2 ABG HCO3 ABG O2 Saturation ABG Base Excess ABG Hemoglobin ABG Oxyhemoglobin ABG Sodium ABG Potassium ABG Chloride ABG Glucose Oxyhemoglobin Carboxyhemoglobin Sodium Potassium Chloride Carbon Dioxide BUN Creatinine Glucose POC Glucose 143 H Hemoglobin A1c Lactic Acid Calcium Phosphorus Magnesium Ferritin Total Bilirubin AST ALT Lactate Dehydrogenase C-Reactive Protein Albumin Triglycerides Arterial Blood Glucose Arterial Blood Ionized Calcium Urine Creatinine Coronavirus (PCR) Crossmatch See Detail 02/14/21 02/14/21 02/14/21 11:51 18:08 23:41 WBC RBC Hgb Hct MCV MCH MCHC RDW Plt Count Lymph % (Auto) Lymph # (Auto) Seg Neutrophils % Seg Neuts % (Manual) Lymphocytes % (Manual) Nucleated RBC % Seg Neutrophils # Seg Neutrophils # Man Lymphocytes # (Manual) Eosinophils # (Manual) INR D-Dimer ABG pH POC ABG pCO2 POC ABG pO2 ABG pO2 ABG HCO3 ABG O2 Saturation ABG Base Excess ABG Hemoglobin ABG Oxyhemoglobin ABG Sodium ABG Potassium ABG Chloride ABG Glucose Oxyhemoglobin Carboxyhemoglobin Sodium Potassium Chloride Carbon Dioxide BUN Creatinine Glucose POC Glucose 113 H 123 H 120 H Hemoglobin A1c Lactic Acid Calcium Phosphorus Magnesium Ferritin Total Bilirubin AST ALT Lactate Dehydrogenase C-Reactive Protein Albumin Triglycerides Arterial Blood Glucose Arterial Blood Ionized Calcium Urine Creatinine Coronavirus (PCR) Crossmatch 02/14/21 02/15/21 02/15/21 Unknown 05:00 05:00 WBC RBC Hgb Hct MCV MCH MCHC RDW Plt Count Lymph % (Auto) Lymph # (Auto) Seg Neutrophils % Seg Neuts % (Manual) Lymphocytes % (Manual) Nucleated RBC % Seg Neutrophils # Seg Neutrophils # Man Lymphocytes # (Manual) Eosinophils # (Manual) INR D-Dimer ABG pH POC ABG pCO2 53.4 H POC ABG pO2 61.8 L ABG pO2 ABG HCO3 ABG O2 Saturation ABG Base Excess ABG Hemoglobin 7.7 L ABG Oxyhemoglobin 88.8 L ABG Sodium ABG Potassium ABG Chloride ABG Glucose 143 H Oxyhemoglobin Carboxyhemoglobin 1.6 H Sodium Potassium Chloride 96.9 L Carbon Dioxide 33 H 31 H BUN 40 H 38 H Creatinine 5.2 H 4.8 H Glucose 152 H 132 H POC Glucose Hemoglobin A1c Lactic Acid Calcium 7.9 L Phosphorus Magnesium Ferritin Total Bilirubin AST ALT Lactate Dehydrogenase C-Reactive Protein Albumin Triglycerides Arterial Blood Glucose 143 H Arterial Blood Ionized Calcium Urine Creatinine Coronavirus (PCR) Crossmatch 02/15/21 02/15/21 02/15/21 05:00 05:27 12:05 WBC RBC 2.30 L Hgb 7.1 L Hct 22.1 L MCV 96 H MCH MCHC RDW 15.7 H Plt Count Lymph % (Auto) 11.0 L Lymph # (Auto) 1.1 L Seg Neutrophils % 83.0 H Seg Neuts % (Manual) Lymphocytes % (Manual) Nucleated RBC % Seg Neutrophils # 8.6 H Seg Neutrophils # Man Lymphocytes # (Manual) Eosinophils # (Manual) INR D-Dimer ABG pH POC ABG pCO2 POC ABG pO2 ABG pO2 ABG HCO3 ABG O2 Saturation ABG Base Excess ABG Hemoglobin ABG Oxyhemoglobin ABG Sodium ABG Potassium ABG Chloride ABG Glucose Oxyhemoglobin Carboxyhemoglobin Sodium Potassium Chloride Carbon Dioxide BUN Creatinine Glucose POC Glucose 133 H 123 H Hemoglobin A1c Lactic Acid Calcium Phosphorus Magnesium Ferritin Total Bilirubin AST ALT Lactate Dehydrogenase C-Reactive Protein Albumin Triglycerides Arterial Blood Glucose Arterial Blood Ionized Calcium Urine Creatinine Coronavirus (PCR) Crossmatch 02/15/21 02/15/21 02/16/21 17:08 23:52 03:44 WBC RBC Hgb Hct MCV MCH MCHC RDW Plt Count Lymph % (Auto) Lymph # (Auto) Seg Neutrophils % Seg Neuts % (Manual) Lymphocytes % (Manual) Nucleated RBC % Seg Neutrophils # Seg Neutrophils # Man Lymphocytes # (Manual) Eosinophils # (Manual) INR D-Dimer ABG pH 7.307 L POC ABG pCO2 59.5 H POC ABG pO2 63.2 L ABG pO2 ABG HCO3 ABG O2 Saturation ABG Base Excess ABG Hemoglobin 9.3 L ABG Oxyhemoglobin ABG Sodium ABG Potassium ABG Chloride ABG Glucose 148 H Oxyhemoglobin Carboxyhemoglobin Sodium Potassium Chloride Carbon Dioxide BUN Creatinine Glucose POC Glucose 129 H 136 H Hemoglobin A1c Lactic Acid Calcium Phosphorus Magnesium Ferritin Total Bilirubin AST ALT Lactate Dehydrogenase C-Reactive Protein Albumin Triglycerides Arterial Blood Glucose 148 H Arterial Blood Ionized Calcium Urine Creatinine Coronavirus (PCR) Crossmatch 02/16/21 02/16/21 02/16/21 05:26 06:00 12:14 WBC RBC Hgb Hct MCV MCH MCHC RDW Plt Count Lymph % (Auto) Lymph # (Auto) Seg Neutrophils % Seg Neuts % (Manual) Lymphocytes % (Manual) Nucleated RBC % Seg Neutrophils # Seg Neutrophils # Man Lymphocytes # (Manual) Eosinophils # (Manual) INR D-Dimer ABG pH POC ABG pCO2 POC ABG pO2 ABG pO2 ABG HCO3 ABG O2 Saturation ABG Base Excess ABG Hemoglobin ABG Oxyhemoglobin ABG Sodium ABG Potassium ABG Chloride ABG Glucose Oxyhemoglobin Carboxyhemoglobin Sodium Potassium Chloride Carbon Dioxide BUN 52 H Creatinine 6.0 H Glucose 138 H POC Glucose 135 H 128 H Hemoglobin A1c Lactic Acid Calcium Phosphorus Magnesium Ferritin Total Bilirubin AST ALT Lactate Dehydrogenase C-Reactive Protein Albumin Triglycerides Arterial Blood Glucose Arterial Blood Ionized Calcium Urine Creatinine Coronavirus (PCR) Crossmatch 02/16/21 02/16/21 02/16/21 17:09 17:09 17:09 WBC RBC Hgb Hct MCV MCH MCHC RDW Plt Count Lymph % (Auto) Lymph # (Auto) Seg Neutrophils % Seg Neuts % (Manual) Lymphocytes % (Manual) Nucleated RBC % Seg Neutrophils # Seg Neutrophils # Man Lymphocytes # (Manual) Eosinophils # (Manual) INR D-Dimer 4256.08 H ABG pH POC ABG pCO2 POC ABG pO2 ABG pO2 ABG HCO3 ABG O2 Saturation ABG Base Excess ABG Hemoglobin ABG Oxyhemoglobin ABG Sodium ABG Potassium ABG Chloride ABG Glucose Oxyhemoglobin Carboxyhemoglobin Sodium Potassium Chloride Carbon Dioxide BUN Creatinine Glucose POC Glucose Hemoglobin A1c Lactic Acid Calcium Phosphorus Magnesium Ferritin 980.6 H Total Bilirubin AST ALT Lactate Dehydrogenase 441 H C-Reactive Protein 20.20 H Albumin Triglycerides Arterial Blood Glucose Arterial Blood Ionized Calcium Urine Creatinine Coronavirus (PCR) Crossmatch 02/16/21 02/16/21 02/16/21 17:25 23:16 Unknown WBC RBC 2.19 L Hgb 7.1 L Hct 21.3 L MCV 98 H MCH 33 H MCHC RDW 16.0 H Plt Count Lymph % (Auto) Lymph # (Auto) Seg Neutrophils % Seg Neuts % (Manual) 85.0 H Lymphocytes % (Manual) 6.0 L Nucleated RBC % 4.0 H Seg Neutrophils # Seg Neutrophils # Man Lymphocytes # (Manual) 0.5 L Eosinophils # (Manual) INR D-Dimer ABG pH POC ABG pCO2 POC ABG pO2 ABG pO2 ABG HCO3 ABG O2 Saturation ABG Base Excess ABG Hemoglobin ABG Oxyhemoglobin ABG Sodium ABG Potassium ABG Chloride ABG Glucose Oxyhemoglobin Carboxyhemoglobin Sodium Potassium Chloride Carbon Dioxide BUN Creatinine Glucose POC Glucose 146 H 150 H Hemoglobin A1c Lactic Acid Calcium Phosphorus Magnesium Ferritin Total Bilirubin AST ALT Lactate Dehydrogenase C-Reactive Protein Albumin Triglycerides Arterial Blood Glucose Arterial Blood Ionized Calcium Urine Creatinine Coronavirus (PCR) Crossmatch 02/17/21 02/17/21 02/17/21 04:00 04:14 04:14 WBC RBC Hgb Hct MCV MCH MCHC RDW Plt Count Lymph % (Auto) Lymph # (Auto) Seg Neutrophils % Seg Neuts % (Manual) Lymphocytes % (Manual) Nucleated RBC % Seg Neutrophils # Seg Neutrophils # Man Lymphocytes # (Manual) Eosinophils # (Manual) INR D-Dimer 3183.35 H ABG pH 7.293 L POC ABG pCO2 59.5 H POC ABG pO2 68.1 L ABG pO2 ABG HCO3 ABG O2 Saturation ABG Base Excess ABG Hemoglobin 7.7 L ABG Oxyhemoglobin ABG Sodium 133.4 L ABG Potassium ABG Chloride ABG Glucose 143 H Oxyhemoglobin Carboxyhemoglobin Sodium 136 L Potassium Chloride 97.3 L Carbon Dioxide BUN 49 H Creatinine 5.3 H Glucose 139 H POC Glucose Hemoglobin A1c Lactic Acid Calcium Phosphorus Magnesium Ferritin Total Bilirubin AST ALT Lactate Dehydrogenase C-Reactive Protein Albumin Triglycerides Arterial Blood Glucose 143 H Arterial Blood Ionized Calcium Urine Creatinine Coronavirus (PCR) Crossmatch 02/17/21 02/17/21 02/17/21 04:14 04:14 04:14 WBC RBC 2.14 L Hgb 6.9 L Hct 21.0 L MCV 98 H MCH MCHC RDW 15.8 H Plt Count Lymph % (Auto) Lymph # (Auto) Seg Neutrophils % Seg Neuts % (Manual) Lymphocytes % (Manual) Nucleated RBC % Seg Neutrophils # Seg Neutrophils # Man Lymphocytes # (Manual) Eosinophils # (Manual) INR D-Dimer ABG pH POC ABG pCO2 POC ABG pO2 ABG pO2 ABG HCO3 ABG O2 Saturation ABG Base Excess ABG Hemoglobin ABG Oxyhemoglobin ABG Sodium ABG Potassium ABG Chloride ABG Glucose Oxyhemoglobin Carboxyhemoglobin Sodium Potassium Chloride Carbon Dioxide BUN Creatinine Glucose POC Glucose Hemoglobin A1c Lactic Acid Calcium Phosphorus Magnesium Ferritin 894.0 H Total Bilirubin AST ALT Lactate Dehydrogenase 399 H C-Reactive Protein 22.10 H Albumin Triglycerides Arterial Blood Glucose Arterial Blood Ionized Calcium Urine Creatinine Coronavirus (PCR) Crossmatch 02/17/21 02/17/21 02/17/21 06:06 07:45 12:25 WBC RBC Hgb 7.6 L Hct 22.8 L MCV MCH MCHC RDW Plt Count Lymph % (Auto) Lymph # (Auto) Seg Neutrophils % Seg Neuts % (Manual) Lymphocytes % (Manual) Nucleated RBC % Seg Neutrophils # Seg Neutrophils # Man Lymphocytes # (Manual) Eosinophils # (Manual) INR D-Dimer ABG pH POC ABG pCO2 POC ABG pO2 ABG pO2 ABG HCO3 ABG O2 Saturation ABG Base Excess ABG Hemoglobin ABG Oxyhemoglobin ABG Sodium ABG Potassium ABG Chloride ABG Glucose Oxyhemoglobin Carboxyhemoglobin Sodium Potassium Chloride Carbon Dioxide BUN Creatinine Glucose POC Glucose 134 H Hemoglobin A1c Lactic Acid Calcium Phosphorus Magnesium Ferritin Total Bilirubin AST ALT Lactate Dehydrogenase C-Reactive Protein Albumin Triglycerides Arterial Blood Glucose Arterial Blood Ionized Calcium Urine Creatinine Coronavirus (PCR) Crossmatch See Detail 02/17/21 02/17/21 02/17/21 12:35 17:56 23:34 WBC RBC Hgb Hct MCV MCH MCHC RDW Plt Count Lymph % (Auto) Lymph # (Auto) Seg Neutrophils % Seg Neuts % (Manual) Lymphocytes % (Manual) Nucleated RBC % Seg Neutrophils # Seg Neutrophils # Man Lymphocytes # (Manual) Eosinophils # (Manual) INR D-Dimer ABG pH POC ABG pCO2 POC ABG pO2 ABG pO2 ABG HCO3 ABG O2 Saturation ABG Base Excess ABG Hemoglobin ABG Oxyhemoglobin ABG Sodium ABG Potassium ABG Chloride ABG Glucose Oxyhemoglobin Carboxyhemoglobin Sodium Potassium Chloride Carbon Dioxide BUN Creatinine Glucose POC Glucose 114 H 128 H 120 H Hemoglobin A1c Lactic Acid Calcium Phosphorus Magnesium Ferritin Total Bilirubin AST ALT Lactate Dehydrogenase C-Reactive Protein Albumin Triglycerides Arterial Blood Glucose Arterial Blood Ionized Calcium Urine Creatinine Coronavirus (PCR) Crossmatch 02/18/21 02/18/21 02/18/21 04:03 04:55 05:02 WBC RBC 2.40 L Hgb 7.5 L Hct 23.1 L MCV 96 H MCH MCHC RDW 16.8 H Plt Count Lymph % (Auto) Lymph # (Auto) Seg Neutrophils % Seg Neuts % (Manual) Lymphocytes % (Manual) Nucleated RBC % Seg Neutrophils # Seg Neutrophils # Man Lymphocytes # (Manual) Eosinophils # (Manual) INR D-Dimer ABG pH 7.219 L POC ABG pCO2 58.7 H POC ABG pO2 64.2 L ABG pO2 ABG HCO3 ABG O2 Saturation ABG Base Excess ABG Hemoglobin ABG Oxyhemoglobin ABG Sodium 130.5 L ABG Potassium ABG Chloride ABG Glucose 147 H Oxyhemoglobin Carboxyhemoglobin Sodium 134 L Potassium Chloride 97.9 L Carbon Dioxide BUN 64 H Creatinine 6.5 H Glucose 135 H POC Glucose Hemoglobin A1c Lactic Acid Calcium 8.0 L Phosphorus Magnesium Ferritin Total Bilirubin AST ALT Lactate Dehydrogenase C-Reactive Protein Albumin Triglycerides Arterial Blood Glucose 147 H Arterial Blood Ionized Calcium Urine Creatinine Coronavirus (PCR) Crossmatch 02/18/21 02/18/21 02/18/21 05:27 11:51 18:10 WBC RBC Hgb Hct MCV MCH MCHC RDW Plt Count Lymph % (Auto) Lymph # (Auto) Seg Neutrophils % Seg Neuts % (Manual) Lymphocytes % (Manual) Nucleated RBC % Seg Neutrophils # Seg Neutrophils # Man Lymphocytes # (Manual) Eosinophils # (Manual) INR D-Dimer ABG pH POC ABG pCO2 POC ABG pO2 ABG pO2 ABG HCO3 ABG O2 Saturation ABG Base Excess ABG Hemoglobin ABG Oxyhemoglobin ABG Sodium ABG Potassium ABG Chloride ABG Glucose Oxyhemoglobin Carboxyhemoglobin Sodium Potassium Chloride Carbon Dioxide BUN Creatinine Glucose POC Glucose 130 H 123 H 123 H Hemoglobin A1c Lactic Acid Calcium Phosphorus Magnesium Ferritin Total Bilirubin AST ALT Lactate Dehydrogenase C-Reactive Protein Albumin Triglycerides Arterial Blood Glucose Arterial Blood Ionized Calcium Urine Creatinine Coronavirus (PCR) Crossmatch 02/18/21 02/19/21 02/19/21 23:35 05:00 05:12 WBC RBC Hgb Hct MCV MCH MCHC RDW Plt Count Lymph % (Auto) Lymph # (Auto) Seg Neutrophils % Seg Neuts % (Manual) Lymphocytes % (Manual) Nucleated RBC % Seg Neutrophils # Seg Neutrophils # Man Lymphocytes # (Manual) Eosinophils # (Manual) INR D-Dimer ABG pH 7.232 L POC ABG pCO2 64.3 H POC ABG pO2 ABG pO2 ABG HCO3 ABG O2 Saturation ABG Base Excess ABG Hemoglobin 8.1 L ABG Oxyhemoglobin ABG Sodium 133.5 L ABG Potassium ABG Chloride ABG Glucose 148 H Oxyhemoglobin Carboxyhemoglobin 1.6 H Sodium Potassium Chloride Carbon Dioxide BUN Creatinine Glucose POC Glucose 137 H 134 H Hemoglobin A1c Lactic Acid Calcium Phosphorus Magnesium Ferritin Total Bilirubin AST ALT Lactate Dehydrogenase C-Reactive Protein Albumin Triglycerides Arterial Blood Glucose 148 H Arterial Blood Ionized Calcium Urine Creatinine Coronavirus (PCR) Crossmatch 02/19/21 02/19/21 02/19/21 05:45 05:45 05:45 WBC RBC Hgb Hct MCV MCH MCHC RDW Plt Count Lymph % (Auto) Lymph # (Auto) Seg Neutrophils % Seg Neuts % (Manual) Lymphocytes % (Manual) Nucleated RBC % Seg Neutrophils # Seg Neutrophils # Man Lymphocytes # (Manual) Eosinophils # (Manual) INR D-Dimer 4840.82 H ABG pH POC ABG pCO2 POC ABG pO2 ABG pO2 ABG HCO3 ABG O2 Saturation ABG Base Excess ABG Hemoglobin ABG Oxyhemoglobin ABG Sodium ABG Potassium ABG Chloride ABG Glucose Oxyhemoglobin Carboxyhemoglobin Sodium 135 L Potassium Chloride 97.8 L Carbon Dioxide BUN 58 H Creatinine 5.6 H Glucose 140 H POC Glucose Hemoglobin A1c Lactic Acid Calcium Phosphorus Magnesium Ferritin 951.8 H Total Bilirubin AST ALT Lactate Dehydrogenase 345 H C-Reactive Protein 15.20 H Albumin Triglycerides 195 H Arterial Blood Glucose Arterial Blood Ionized Calcium Urine Creatinine Coronavirus (PCR) Crossmatch
[2021-02-19] MEDS: HEPARIN 5,000 UNIT/1 ML VIAL SUB-Q SCH ×2 (13:29→21:10)
--- NOTE | 2021-02-19 16:16 | Progress Note ---
<SALVADORTamieBRENDALourdes - Last Filed: 02/19/21 16:14> Assessment and Plan Assessment and plan: This is a 60-year-old male with diabetes mellitus, hypertension, hyperlipidemia, chronic renal insufficiency who was admitted on 01/23 as a COVID-19 PUI with Sepsis, COVID-19 pneumonia, coag negative staph bacteremia, acute hypoxic r espiratory failure, and acute kidney injury. Sepsis COVID-19 pneumonia Coag-neg Staph bacteremia Acute hypoxic respiratory failure Acute kidney injury, HD initiated 02/03 Anemia Hyponatremia Hypochloremia Diabetes mellitus Hypertension Hyperlipidemia Chronic renal insufficiency Elevated D-dimer -CCM, nephrology, infectious disease, GI consulted, appreciate recommendations -s/p Antibiotic therapy, remdesivir -COVID-19 PCR positive, Pneumonia on CXR -Steroid therapy -Mechanical ventilation, wean as tolerated -VAP bundle -HD per nephrology -S/p 4 units PRBC during stay -Trend BMP, CBC, COVID-19 inflammatory markers -Bilateral lower extremity and upper extremity Doppler ultrasound negative for DVT/SVT -SSI and Long-acting insulin -Accu-Cheks every 6 while on tube feedings -Hold home antihypertensive regimen for now as he is still needing vasopressor support -Blood pressure monitoring per protocol -S/p NaHCO3 gtt -02/17 CT head showed no acute intracranial abnormality, paranasal sinus disease -Bowel regimen DVT/GI prophylaxis: SCDs to bilateral lower extremities while in bed, PPI, hepa rin subq Dispo: ICU The high probability of a clinically significant, sudden or life threatening d eterioration of the [multi] system(s) required my full and direct attention, intervention and personal management. The aggregate critical care time was [32] minutes. This time is in addition to time spent performing reported procedures but includes the following: [x] Data Review and interpretation [x] Patient assessment and monitoring of vital signs [x] Documentation [x] Medication orders and management History Interval history: This is a 60-year-old male with diabetes mellitus, hypertension, hyperlipidemia, chronic renal insufficiency presents to the emergency department on 01/23 with shortness of breath, fevers chills, loss of smell and taste and body aches for the past 3 days via EMS. Per EMS patient's oxygen saturation on room air was 50 % and after being placed on nonrebreather it increased 75%. Upon arrival to the emergency department patient was being bagged by EMS. In the emergency room patient was intubated due to severe hypoxia, increased work of breathing and lethargy. Patient was sedated on propofol and fentanyl. Patient presented with fever, tachycardia, tachypnea and acute hypoxic respiratory failure with PNA on CXR meeting Sepsis criteria. Lab work in the emergency department revealed hyponatremia, hypokalemia, hypochloremia, elevated CR/BUN and CXR showed bilateral pneumonia. Patient was admitted to the hospital service as a COVID-19 PUI with consults to infectious disease, nephrology and critical care medicine. 01/24/2021: Patient is intubated and sedated, patient is positive for COVID-19 infection. ID was consulted and put on dexamethasone and remdesivir. Patient has DEISI and nephrology is following. Creatinine stable, patient is urinating. Discussed with nephrology and he is okay with remdesivir. Pulmonary critical care is following for his vent setting. PEEP of 8 and FiO2 of 85%. Patient was alert and off sedatives. 01/25/2021; patient is intubated and on mechanical ventilation. Continue with treatment of Covid. Nephrology and ID is following. Pulmonary is following for vent management 01/26: Remains on mechanical ventilation and [facility] increased his PEEP. [facility] has ordered Precedex for sedation. Possibly need to prone this p.m. No acute events reported overnight. This morning his D-dimer is greater than 10,000 and we have started him on Lovenox 120 mg daily. Nutrition has been consulted for initiation of tube feedings. Patient remains sedated on propofol 40 and fentanyl for the time my examination this morning. 01/27: Continue Lovenox, remdesivir and empiric antibiotics. Patient had a T-max of 101 overnight. The time of examination patient is on CMV 500/18/14/0.61. Kidney function slightly worsened. Sedated on fentanyl ground-level fall and Precedex. Nephrology has increased IV fluids to 100 ml/hr. Continue to trend BMP and CBC. Sedation vacation attempt by RN this AM. 01/28: Patient completed antibiotics today [facility] will paralyze patient and increase sedation. PICC line ordered for possible vasopressor therapy need. Patient's D-dimer remains greater than 10,000 and he still has hyperchloremia. Patient's kidney function has improved today. May need to prone the patient if no improvement in oxygenation is noted in the next 24 hours. The time of my ex amination patient is sedated with propofol, fentanyl and Precedex and is on assist control 500/18/16/0.80 hypoxic on ABG on 60% FiO2. 01/29: Patient was started on Nimbex yesterday and his ABG this morning showed respiratory acidosis with hypercapnia and his respiratory rate was increased. We will obtain a repeat ABG this afternoon. This morning patient is hypernatremic, hyperkalemic and hyperchloremic. His potassium has been corrected with the management and will obtain repeat BMP tomorrow. His kidney functions have remained stable and we will await nephrology's input. No acute events reported overnight. This morning the time my examination patient sedated with propofol, Precedex and fentanyl and paralyzed with Nimbex. He is on assist control 500/24/16 0.80. 01/30: This morning patient is hypokalemic again and was given Kayexalate. Patient has hypernatremia and hyper chloremia and his renal function is slightly worse after receiving Lasix yesterday. His D-dimer remains greater than 10,000 and he is still on a paralytic. Patient is sedated on Precedex, fentanyl, propofol. Mechanical ventilation settings seven-point /61/28. [facility] has decided to continue paralytics for 48 more hours and will attempt proning the patient. Increased free water flushes 300 cc every 4 hours. Patient states has restarted his antibiotics cefepime and vancomycin and recultured. 01/31/21 Hyperkalemia, Treated 02/01/21 Hyperkalemia, Treated 02/02: Patient's kidney function continues to worsen and a stat BMP this morning shows BUN/creatinine 20/6.1 and he remains hypocalcemic and hypernatremic, hypokalemic and hypochloremic. Patient received 2 g of calcium gluconate and Kayexalate and his repeat potassium was 4.3 this afternoon. He remains antibiotic therapy and steroids. Nephrology has placed the patient on bicarb drip given metabolic acidosis and has decided to hold off hemodialysis till tomorrow.The time my examination patient is sedated on fentanyl, Precedex and on assist control 500/20/12/0.70. s/p paralytic. 02/03: Today patient's ABG shows respiratory acidosis however it is improving, hypernatremia, hyperchloremia, metabolic acidosis on BMP, worsening kidney function BUN/creatinine 130/9.2 with hyperphosphatemia. Patient received a Vas- Cath to his right IJ for initiation of dialysis. At the time of my examination patient remains sedated on fentanyl, propofol and Precedex with vasopressor support with Levophed at 2. 02/04: At the time of examination patient was on assist control tidal volume 500, rate 40, PEEP of 12, FiO2 85%. Patient had a T-max of 100.9 and infectious disease has stopped his vancomycin given negative MRSA. This afternoon patient respiked his temperature and was pancultured again. Patient was started on hemodialysis yesterday and will receive HD again today. Patient is sedated on Precedex, propofol, fentanyl and remains on Levophed. He is on assist control tidal volume 500, rate of 30, PEEP of 12, FiO2 of 85%. Patient still has some respiratory acidosis however his hypernatremia and hyperchloremia have improved and his metabolic acidosis has resolved. Patient will receive hemodialysis today 02/05: Patient continues to have low-grade fever temp this morning time examination he was on assist control tidal volume 500, and sedated on propofol/fentanyl/Precedex and is on Levophed. Hemodialysis per nephrology. Antibiotics per ID. Patient's blood culture from 02/04 grew gram-positive cocci in clusters in 1/2 bottles and he was started on vancomycin. 02/06: Patients ABG showed respiratory acidosis and the tracings were changed however a repeat ABG showed showed acidosis.[facility] will start a bicarb drip after giving 2 amps of bicarb push. Yesterday patient blood cultures grew gram- positive cocci and he was started on vancomycin. At the time my examination patient was on assist control tidal volume 550, rate 34, PEEP 16, FiO2 90% and sedated on fentanyl, Precedex, propofol elevated pressure support with Levophed. Bilateral lower extremity Doppler ultrasounds done yesterday showed no evidence of DVT/SVT. 02/07/2021; patient is still on the vent with PEEP of 16 and FiO2 of 90%, sedated with fentanyl Precedex and propofol. Patient still requiring Levophed. Patient was sedated yesterday and was given bicarb push. Blood culture grew gram-positive cocci in clusters and he is on vancomycin, will follow identification. 02/08/2021;patient is still on the vent with PEEP of 16 and FiO2 of 90%, sedated with fentanyl Precedex and propofol. Patient still requiring Levophed. Patient was sedated yesterday and was given bicarb push. Blood culture grew gram- positive cocci in clusters and he is on vancomycin, will follow identification. Patient is currently on dialysis. Patient is anemic transfuse if hemoglobin is below 7. 02/09: This morning patient has slight hypokalemia, hypochorlemia, hyponatremia and metabolic alkalosis. [facility] will continue bicarb gtt given that the patient does not have HD access at this time. We will replete the potassium and recheck BMP in the AM. We will type and cross in anticipation of PRBC transfusion. This morning he is sedated on Ativan, fentayl, and precedex. Will obtain a triglyceride level today in hopes to resume propofol. Patient is alkalotic and BMP however we will continue with bicarb drip per [facility] given that the patient does not have any access for hemodialysis. Anticipate replacing hemodialysis catheter tomorrow or Tuesday. The time my examination he is on AC TV 550, Rate 34, PeeP 16, FiO2 .65. 02/10: A.m. labs still pending, [facility] plans to replace HD catheter tomorrow as the patient is still febrile however his fever curve is trending down, remains on a bicarb drip and on vancomycin. Today at the time my examination patient was sedated on Precedex, Ativan and fentanyl and he is on assist control tidal 11/04/1951, rate 34, PEEP 16, FiO2 65%. Overnight patient was hypotensive and received 1 dose of midodrine. 02/11: Patient is still having low-grade temperatures that we will obtain a bilateral lower upper extremity venous Doppler ultrasound given that his repeat cultures have been negative so far. Patient received a Vas-Cath today for hemodialysis. The time examination patient is on assist control tidal volume 550, rate of 34, PEEP of 16 and FiO2 of 75%. Patient was hypokalemic and anemic yesterday which were both repleted with potassium and 1 unit PRBC. 02/12: 02/12: Patient had a 12-second run of V. tach today, his potassium and magnesium were low which was repleted. Renal adjusted potassium bath. We will obtain a triglyceride level in hopes to restarting to prevent as needed. This morning at the time my examination patient was sedated on fentanyl, Ativan and Precedex and remained on a bicarb drip. He was on assist control tidal volume 550, rate 34, PEEP 16, FiO2 85%. We will obtain a occult stool given no evident source of bleeding and need for transfusion. Anemia possibly due to hemodialysis. 02/13: Patient's T-max was 100.7, remains on fentanyl, Ativan, Precedex and bicarb drip this morning at some examination on assist control tidal volume 550, rate 34, PEEP 16 and FiO2 85%. On the labs this morning is slightly hypokalemi c and remains metabolic alkalotic on BMP. His occult was positive. His Lovenox and consult GI. Patient received hemodialysis today. 02/14: cont PPI, GI recommended to scope now, monitor clinically, tolerating TF, remains intubated. Hb 6.9 today - transfuse another unit. very poor prognosis. 02/15: H&H appears to be stable following 1 unit of transfusion yesterday. Continue to hold heparin and aspirin products. Continue to monitor clinically. Poor prognosis. Wean off from vent as tolerated. 02/16: Infectious disease has signed off, his Ativan drip was discontinued and to prevent drip will be started when patient needs it. T-max 100.6 yesterday afternoon. He received hemodialysis today and at the time my examination was still on mechanical ventilation assist control tidal volume 550, rate 34, PEEP 16 on 70% FiO2. Patient was sedated on fentanyl dexamethasone and Ativan. No acute events reported overnight. 02/17: This morning patient was scheduled to get 2 units PRBC however his repeat H/H after 1 unit PRBC was 7.6/22.8 and the width of the second unit PRBC. This morning patient was sedated on fentanyl, propofol, Precedex and on assist control tolerated by 50, rate 34, PEEP of 16, FiO2 35%. Wound care was consulted today for his upper lip wound. Nephrology continues to withhold dialysis. No acute events reported overnight. Dr. Hoang was unable to contact family for updates. 02/18: Family updated by Dr. Hoang and Dr. Reddy. Patient had a hemodialysis today. The time my examination patient was on assist control tidal volume 550, rate 34, PEEP 16 and FiO2 35%. Overnight patient had a CT head and he was placed on 3% FiO2 and took "a long time to recover" per RN report. 02/19: Patient's D-dimer is trending up therefore he was started on prophylactic anticoagulation, no bowel movement for several days so he was started on mag citrate today. The time examination patient is sedated on Precedex 1.2, fentanyl 3, propofol 20 on assist control tidal volume 550, rate 34, PEEP 16, 80% FiO2 and on his ABG his PaO2 is 106. RT will try to wean as tolerated. Repeat COVID-19 PCR today was positive.Dr. Hoang updated the family today. Hospitalist Physical - Constitutional Vitals: Temp Pulse Resp BP Pulse Ox 98.7 F 98 H 34 H 119/65 93 02/19/21 16:00 02/19/21 15:00 02/19/21 15:00 02/19/21 15:00 02/19/21 15:00 General appearance: Present: no acute distress, well-nourished, other (Sedated on mechanical ventilation) - EENT Eyes: Present: PERRL ENT: poor dentition - Neck Neck: Absent: masses or JVD, cervical LAD - Respiratory Respiratory effort: normal Respiratory: bilateral: rhonchi - Cardiovascular Rhythm: regular Heart Sounds: Present: S1 & S2. Absent: systolic murmur, diastolic murmur - Extremities Extremities: no ischemia, pulses intact, pulses symmetrical, normal temperature, normal color Extremity abnormal: edema - Peripheral Assessment Generalized Edema Type: Pitting Edema Degree: 2+ Capillary Refill: < 3 seconds Skin Temperature: Warm Peripheral Pulses: within normal limits - Abdominal General gastrointestinal: soft, non-tender, non-distended, normal bowel sounds - Integumentary Integumentary: Present: warm, dry - Psychiatric Psychiatric: other (sedated) - Neurologic Neurologic: other (sedated) - Allied Health Allied health notes reviewed: nursing, RT, social work HEART Score - HEART Score Risk factors: 1-2 risk factors Troponin: < normal limit - Critical Actions Critical Actions: 0-3 pts:0.9-1.7%risk of adverse cardiac event.Candidate for discharge Results - Labs CBC & Chem 7: 02/18/21 05:02 02/19/21 05:45 Labs: Laboratory Last Values WBC 8.4 K/mm3 (4.5-11.0) 02/18/21 05:02 RBC 2.40 M/mm3 (3.65-5.03) L 02/18/21 05:02 Hgb 7.5 gm/dl (11.8-15.2) L 02/18/21 05:02 Hct 23.1 % (35.5-45.6) L 02/18/21 05:02 MCV 96 fl (84-94) H 02/18/21 05:02 MCH 31 pg (28-32) 02/18/21 05:02 MCHC 32 % (32-34) 02/18/21 05:02 RDW 16.8 % (13.2-15.2) H 02/18/21 05:02 Plt Count 231 K/mm3 (140-440) 02/18/21 05:02 Lymph % (Auto) 11.0 % (13.4-35.0) L 02/15/21 05:00 [place] % (Auto) 4.2 % (0.0-7.3) 02/15/21 05:00 Eos % (Auto) 1.2 % (0.0-4.3) 02/15/21 05:00 Baso % (Auto) 0.6 % (0.0-1.8) 02/15/21 05:00 Lymph # (Auto) 1.1 K/mm3 (1.2-5.4) L 02/15/21 05:00 [place] # (Auto) 0.4 K/mm3 (0.0-0.8) 02/15/21 05:00 Eos # (Auto) 0.1 K/mm3 (0.0-0.4) 02/15/21 05:00 Baso # (Auto) 0.1 K/mm3 (0.0-0.1) 02/15/21 05:00 Add Manual Diff Complete 02/16/21 Unknown Total Counted 100 02/16/21 Unknown Seg Neutrophils % 83.0 % (40.0-70.0) H 02/15/21 05:00 Seg Neuts % (Manual) 85.0 % (40.0-70.0) H 02/16/21 Unknown Band Neutrophils % 2.0 % 02/16/21 Unknown Lymphocytes % (Manual) 6.0 % (13.4-35.0) L 02/16/21 Unknown Reactive Lymphs % (Man) 1.0 % 01/27/21 05:29 Monocytes % (Manual) 5.0 % (0.0-7.3) 02/16/21 Unknown Eosinophils % (Manual) 1.0 % (0.0-4.3) 02/16/21 Unknown Basophils % (Manual) 1.0 % (0.0-1.8) 02/06/21 Unknown Metamyelocytes % 1.0 % 02/16/21 Unknown Nucleated RBC % 4.0 % (0.0-0.9) H 02/16/21 Unknown Seg Neutrophils # 8.6 K/mm3 (1.8-7.7) H 02/15/21 05:00 Seg Neutrophils # Man 7.6 K/mm3 (1.8-7.7) 02/16/21 Unknown Band Neutrophils # 0.2 K/mm3 02/16/21 Unknown Lymphocytes # (Manual) 0.5 K/mm3 (1.2-5.4) L 02/16/21 Unknown Abs React Lymphs (Man) 0.0 K/mm3 02/16/21 Unknown Monocytes # (Manual) 0.4 K/mm3 (0.0-0.8) 02/16/21 Unknown Eosinophils # (Manual) 0.1 K/mm3 (0.0-0.4) 02/16/21 Unknown Basophils # (Manual) 0.0 K/mm3 (0.0-0.1) 02/16/21 Unknown Metamyelocytes # 0.1 K/mm3 02/16/21 Unknown Myelocytes # 0.0 K/mm3 02/16/21 Unknown Promyelocytes # 0.0 K/mm3 02/16/21 Unknown Blast Cells # 0.0 K/mm3 02/16/21 Unknown WBC Morphology Not Reportable 02/16/21 Unknown Hypersegmented Neuts Not Reportable 02/16/21 Unknown Hyposegmented Neuts Not Reportable 02/16/21 Unknown Hypogranular Neuts Not Reportable 02/16/21 Unknown Smudge Cells Not Reportable 02/16/21 Unknown Toxic Granulation Not Reportable 02/16/21 Unknown Toxic Vacuolation Not Reportable 02/16/21 Unknown Dohle Bodies Not Reportable 02/16/21 Unknown Pelger-Huet Anomaly Not Reportable 02/16/21 Unknown Fátima Rods Not Reportable 02/16/21 Unknown Platelet Estimate Consistent w auto 02/16/21 Unknown Clumped Platelets Not Reportable 02/16/21 Unknown Plt Clumps, EDTA Not Reportable 02/16/21 Unknown Large Platelets Not Reportable 02/16/21 Unknown Giant Platelets Not Reportable 02/16/21 Unknown Platelet Satelliting Not Reportable 02/16/21 Unknown Plt Morphology Comment Not Reportable 02/16/21 Unknown RBC Morphology Not Reportable 02/16/21 Unknown Dimorphic RBCs Not Reportable 02/16/21 Unknown Polychromasia Not Reportable 02/16/21 Unknown Hypochromasia Not Reportable 02/16/21 Unknown Poikilocytosis Not Reportable 02/16/21 Unknown Anisocytosis 1+ 02/16/21 Unknown Microcytosis Not Reportable 02/16/21 Unknown Macrocytosis Not Reportable 02/16/21 Unknown Spherocytes Not Reportable 02/16/21 Unknown Pappenheimer Bodies Not Reportable 02/16/21 Unknown Sickle Cells Not Reportable 02/16/21 Unknown Target Cells Not Reportable 02/16/21 Unknown Tear Drop Cells Not Reportable 02/16/21 Unknown Ovalocytes Not Reportable 02/16/21 Unknown Helmet Cells Not Reportable 02/16/21 Unknown [place] Bodies Not Reportable 02/16/21 Unknown [place] Rings Not Reportable 02/16/21 Unknown [place] Cells Not Reportable 02/16/21 Unknown Bite Cells Not Reportable 02/16/21 Unknown Crenated Cell Not Reportable 02/16/21 Unknown Elliptocytes Not Reportable 02/16/21 Unknown Acanthocytes (Spur) Not Reportable 02/16/21 Unknown Rouleaux Not Reportable 02/16/21 Unknown Hemoglobin C Crystals Not Reportable 02/16/21 Unknown Schistocytes Not Reportable 02/16/21 Unknown Malaria parasites Not Reportable 02/16/21 Unknown Aquiles Bodies Not Reportable 02/16/21 Unknown Hem Pathologist Commnt No 02/16/21 Unknown PT 14.9 Sec. (12.2-14.9) 02/11/21 08:27 INR 1.17 (0.87-1.13) H 02/11/21 08:27 D-Dimer 4840.82 ng/mlDDU (0-234) H 02/19/21 05:45 ABG pH 7.232 (7.320-7.450) L 02/19/21 05:00 POC ABG pCO2 64.3 mmHg (32.0-48.0) H 02/19/21 05:00 ABG pCO2 51.2 mm Hg 02/12/21 04:41 POC ABG pO2 106.1 mmHg (83-108) 02/19/21 05:00 ABG pO2 69.0 mm Hg (80.0-90.0) L 02/12/21 04:41 POC ABG HCO3 26.4 02/19/21 05:00 ABG HCO3 32.5 mmol/L (20.0-26.0) H 02/12/21 04:41 ABG O2 Saturation 97.8 (0-100) 02/19/21 05:00 ABG O2 Content 4.3 (0.0-44) 02/12/21 04:41 POC ABG Base Excess -1.4 02/19/21 05:00 ABG Base Excess 7.7 mmol/L (-2.0-3.0) H 02/12/21 04:41 ABG Hemoglobin 8.1 (12.0-17.5) L 02/19/21 05:00 ABG Oxyhemoglobin 95.9 (94-98) 02/19/21 05:00 ABG Carboxyhemoglobin 2.4 % (0.0-5.0) 02/12/21 04:41 ABG Methemoglobin 0.3 (0.0-1.5) 02/19/21 05:00 ABG Sodium 133.5 mmol/L (136.0-145.0) L 02/19/21 05:00 ABG Potassium 4.3 mmol/L (3.40-4.50) 02/19/21 05:00 ABG Chloride 102.0 mmol/L (98-107) 02/19/21 05:00 ABG Glucose 148 mg/dL (65-95) H 02/19/21 05:00 Oxyhemoglobin 94.7 % (95.0-99.0) L 02/12/21 04:41 Carboxyhemoglobin 1.6 (0.5-1.5) H 02/19/21 05:00 FiO2 75 % 02/12/21 04:41 FiO2 % 85.0 02/19/21 05:00 Sodium 135 mmol/L (137-145) L 02/19/21 05:45 Potassium 4.4 mmol/L (3.6-5.0) 02/19/21 05:45 Chloride 97.8 mmol/L (98-107) L 02/19/21 05:45 Carbon Dioxide 27 mmol/L (22-30) 02/19/21 05:45 Anion Gap 15 mmol/L 02/19/21 05:45 BUN 58 mg/dL (9-20) H 02/19/21 05:45 Creatinine 5.6 mg/dL (0.8-1.3) H 02/19/21 05:45 Estimated GFR 13 ml/min 02/19/21 05:45 BUN/Creatinine Ratio 10 % 02/19/21 05:45 Glucose 140 mg/dL (75-100) H 02/19/21 05:45 POC Glucose 134 mg/dL (70-105) H 02/19/21 05:12 Hemoglobin A1c 6.3 % (4-6) H 02/02/21 16:00 Lactic Acid 1.90 mmol/L (0.7-2.0) 01/24/21 14:38 Calcium 8.6 mg/dL (8.4-10.2) 02/19/21 05:45 Phosphorus 3.90 mg/dL (2.5-4.5) 02/13/21 06:40 Magnesium 1.70 mg/dL (1.7-2.3) 02/16/21 17:09 Ferritin 951.8 ng/mL (30.0-300.0) H 02/19/21 05:45 Total Bilirubin 1.50 mg/dL (0.1-1.2) H 01/26/21 05:47 AST 37 units/L (5-40) 01/26/21 05:47 ALT 29 units/L (7-56) 01/26/21 05:47 Alkaline Phosphatase 70 units/L (35-129) 01/26/21 05:47 Lactate Dehydrogenase 345 units/L (91-180) H 02/19/21 05:45 C-Reactive Protein 15.20 mg/dL (0.00-1.30) H 02/19/21 05:45 Total Protein 7.2 g/dL (6.3-8.2) 01/26/21 05:47 Albumin 2.2 g/dL (3.9-5) L 01/26/21 05:47 Albumin/Globulin Ratio 0.4 % 01/26/21 05:47 Triglycerides 195 mg/dL (2-149) H 02/19/21 05:45 Procalcitonin 18.94 ng/mL (<0.15) 02/16/21 17:09 Arterial Blood Glucose 148 mg/dL (65-95) H 02/19/21 05:00 Arterial Blood Ionized Calcium 4.6 mg/dL (4.6-5.3) 02/19/21 05:00 Urine Color Nehal (Yellow) 01/22/21 22:39 Urine Turbidity Cloudy (Clear) 01/22/21 22:39 Urine pH 5.0 (5.0-7.0) 01/22/21 22:39 Ur Specific [place] 1.017 (1.003-1.030) 01/22/21 22:39 Urine Protein 100 mg/dl mg/dL (Negative) 01/22/21 22:39 Urine Glucose (UA) Neg mg/dL (Negative) 01/22/21 22:39 Urine Ketones Neg mg/dL (Negative) 01/22/21 22:39 Urine Blood Mod (Negative) 01/22/21 22:39 Urine Nitrite Neg (Negative) 01/22/21 22:39 Urine Bilirubin Neg (Negative) 01/22/21 22:39 Urine Urobilinogen 2.0 mg/dL (<2.0) 01/22/21 22:39 Ur Leukocyte Esterase Mod (Negative) 01/22/21 22:39 Urine WBC (Auto) < 1.0 /HPF (0.0-6.0) 01/22/21 22:39 Urine RBC (Auto) < 1.0 /HPF (0.0-6.0) 01/22/21 22:39 U Epithel Cells (Auto) < 1.0 /HPF (0-13.0) 01/22/21 22:39 Urine Osmolality 416 Mosm/kg 01/30/21 12:15 Urine Total Volume 2300 ml 01/30/21 12:00 Urine Creatinine 53.0 mg/dL (0.1-20.0) H 01/30/21 12:00 Ur Creatinine 24 Hour 1.2 (0.8-2.8) 01/30/21 12:00 Urine Sodium 28 mmol/L 01/22/21 22:39 Nasal Screen MRSA (PCR) Negative (Negative) 02/02/21 13:20 Random Vancomycin 13.7 ug/mL (0-40.0) 02/07/21 10:40 Coronavirus (PCR) Positive (Negative) A 02/18/21 10:00 Hepatitis A IgM Ab Non-reactive (NonReactive) 02/03/21 Unknown Hep Bs Antigen Non-reactive (Negative) 02/03/21 Unknown Hep B Core IgM Ab Non-reactive (NonReactive) 02/03/21 Unknown Hepatitis C Antibody Non-reactive (NonReactive) 02/03/21 Unknown Blood Type B POSITIVE 02/17/21 07:45 Antibody Screen Negative 02/17/21 07:45 Crossmatch See Detail 02/17/21 07:45 Black/IV: Voiding Method Incontinent Active Medications - Current Medications Current Medications: Generic Name Dose Route Start Last Admin Trade Name Freq PRN Reason Stop Dose Admin Acetaminophen 650 mg 01/23/21 02:25 02/11/21 18:20 Acetaminophen 650 Mg Rect Supp [place] 650 mg Q4H PRN Administration Pain, Mild (1-3) Acetaminophen 650 mg 01/24/21 12:58 02/15/21 18:06 Acetaminophen 325 Mg/10.15 Ml Oral Liqd Unit Dose FEEDTUBE 650 mg Q6H PRN Administration Pain, Mild (1-3) Lipase/Protease/Amylase 1 each 01/26/21 14:25 Lipase 10,500/Protease 25,000/Amylase 43,750 (Units) Dr Claudio FEEDTUBE PRN PRN For Clogged Feeding Tube Dextrose 50 ml 01/27/21 07:24 Dextrose 50% In Water (25gm) 50 Ml Syringe IV Q30MIN PRN Hypoglycemia Protocol Fentanyl 50 mcg 01/22/21 22:39 02/10/21 13:46 Fentanyl 100 Mcg/2 Ml Inj IV 50 mcg Q10MIN PRN Administration ANALGESIA Heparin Sodium (Porcine) 2,000 unit 02/11/21 09:38 Heparin 10,000 Units/10 Ml Vial IV SAGRARIO PRN hemodialysis Heparin Sodium (Porcine) 5,000 unit 02/19/21 14:00 02/19/21 13:29 Heparin 5,000 Unit/1 Ml Vial SUB-Q 5,000 unit Q8HR CECE Administration Hydrophilic Ointment 1 applic 01/22/21 22:39 02/17/21 17:14 Lip Therapy Vaseline TP 1 applic Q2HR PRN Administration Dry Lips Fentanyl Citrate 2,000 mcg in 100 mls @ 6.124 mls/hr 01/22/21 23:00 02/19/21 15:27 Fentanyl Drip Premix IV 3 mcg/kg/hr TITR CECE 18.371 mls/hr Administration Protocol 1 MCG/KG/HR Propofol 1,000 mg in 100 mls @ 3.674 mls/hr 01/22/21 23:45 02/19/21 11:21 Diprivan 10 Mg/Ml IV 15 mcg/kg/min TITR CECE 11.022 mls/hr Administration Protocol 5 MCG/KG/MIN Norepinephrine 4 mg in 250 mls @ 7.5 mls/hr 01/28/21 14:00 02/08/21 06:08 Levophed Drip 4 Mg/Ns 250 Ml IV 0 mcg/min TITR CECE 0 mls/hr Titration Protocol 2 MCG/MIN Dexmedetomidine HCl 1,000 mcg/ 260 mls @ 6.368 mls/hr 01/30/21 20:00 02/19/21 10:44 Sodium Chloride IV 1.2 mcg/kg/hr TITRATE CECE 38.211 mls/hr Administration Protocol 0.2 MCG/KG/HR Sodium Chloride 100 mls @ 999 mls/hr 02/15/21 16:45 Nacl 0.9% IV SAGRARIO PRN Hypotension Lansoprazole 30 mg 02/18/21 10:00 02/19/21 10:46 Lansoprazole 30 Mg Solutab FEEDTUBE 30 mg QDAY CECE Administration Multi-Ingred Cream/Lotion/Oil/Oint 1 applic 01/22/21 22:39 02/01/21 09:33 Mineral Oil/Petrolatum, White Ophth Oint 3.5 Gm OU 1 applic Q4HR PRN Administration Dry Eye(s) Ondansetron HCl 4 mg 01/23/21 02:17 Ondansetron 4 Mg/2 Ml Inj IV Q8H PRN Nausea And Vomiting Senna/Docusate Sodium 2 tab 02/17/21 11:00 02/19/21 13:29 Sennosides/Docusate Sodium 8.6/50 Mg Tab PO 2 tab TID CECE Administration Simple Syrup 15 ml 01/26/21 14:25 Simple Syrup 15 Ml FEEDTUBE PRN PRN Hypoglycemia Simple Syrup 30 ml 01/26/21 14:25 Simple Syrup 15 Ml FEEDTUBE PRN PRN Hypoglycemia Sodium Bicarbonate 325 mg 01/26/21 14:25 Sodium Bicarbonate 325 Mg Tab FEEDTUBE PRN PRN For Clogged Feeding Tube Nutrition/Malnutrition Assess - Dietary Evaluation Nutrition/Malnutrition Findings: Nutrition Notes Start: 01/26/21 13:59 Freq: Status: Active Protocol: Document 02/19/21 13:29 CW (Rec: 02/19/21 13:34 CW [id number]) Nutrition Notes Initial or Follow up Reassessment Current Diagnosis Acute Kidney Injury,Diabetes, Sepsis,Hypertension, Respiratory Failure, Hyperlipidemia Other Pertinent Diagnosis on HD, COVID-19 (+), bilat pneu Current Diet TF - Nepro at 36 ml/hr Labs/Tests Na 135 BUN 58 Cr 5.6 Pertinent Medications propofol at 11.022 (provided 291 kcal) Senna Mg Citrate Height 5 ft 8 in Weight 162 kg [place] Body Weight (kg) 70.00 BMI 54.3 Weight change and time frame wt stable Weight Status Morbidly Obese Subjective/Other Information F/U for Na labs and TF tolerance. Pt continues to tolerate TF regimen at goal. Pt continues to not have a BM. RN treating with Rx. Pt remains of mechanical vent. Percent of energy/protein needs met: 80%/61% Burn Absent Trauma Absent GI Symptoms Constipation Difficulty In Swallowing Skin Integrity/Comment pressure ulcer to lips Current % PO Negligible Minimum of two criteria No Fluid Accumulation Moderate to Severe (severe) #2 Nutrition Diagnosis Increased nutrient needs ( specify in comment below) Comments: protein Diagnosis Progress(for reassessment Continues documentation) #1 Nutrition Diagnosis Inadequate oral intake Diagnosis Progress(for reassessment Continues documentation) Is patient on ventilator? Yes Is Patient Ambulatory and/or Out of Bed No REE-([facility]-confined to bed) 2877.408 Kcal/Kg value to use for calculation 12 Approximate Energy Requirements Using 1944 kcal/Kg Calculation Used for Recommendations Kcal/kg Additional Notes Pro needs >1.2g/kg adjBW: > 115g/day for HD needs Fluid needs 500+ total output or per MD Nutrition Intervention Change Diet Order: Continue TF Nutrition Support: Nepro at 46 ml/hr with a free water flush of 125 ml q4h for hyponatremia. Resume flush of 200 ml q4h once hyponatremia resolved. Kcal 1,987 Protein (gm) 89 Fluid (mL) 803 Goal #1 TF tolerance Goal #2 TF to meet at least 75% energy and pro needs Anticipated Discharge Needs: unable to determine at this time Follow-Up By: 02/24/21 Additional Comments F/U for TF tolerance <DENNYS HOANG R - Last Filed: 02/20/21 00:15> Assessment and Plan Assessment and plan: I saw and evaluated the patient. I agree with the findings and the plan of care as documented in the Nurse Practitioner's~note, with the following corrections and additions. Patient remains on high PEEP with 75-85% FiO2 on ventilator not able to wean off from vent and does not meet criteria for a trach yet per CC Patient with very poor prognosis, COVID19 test remains positive called patient's sister and updated sister understand that patient has poor prognosis and wish to continue aggressive care Hospitalist Physical - Constitutional Vitals: Temp Pulse Resp BP Pulse Ox 97.7 F 98 H 35 H 107/57 90 02/19/21 20:00 02/19/21 23:00 02/19/21 23:00 02/19/21 23:00 02/19/21 23:00 Results - Labs CBC & Chem 7: 02/18/21 05:02 02/19/21 05:45 Labs: Laboratory Last Values WBC 8.4 K/mm3 (4.5-11.0) 02/18/21 05:02 RBC 2.40 M/mm3 (3.65-5.03) L 02/18/21 05:02 Hgb 7.5 gm/dl (11.8-15.2) L 02/18/21 05:02 Hct 23.1 % (35.5-45.6) L 02/18/21 05:02 MCV 96 fl (84-94) H 02/18/21 05:02 MCH 31 pg (28-32) 02/18/21 05:02 MCHC 32 % (32-34) 02/18/21 05:02 RDW 16.8 % (13.2-15.2) H 02/18/21 05:02 Plt Count 231 K/mm3 (140-440) 02/18/21 05:02 Lymph % (Auto) 11.0 % (13.4-35.0) L 02/15/21 05:00 [place] % (Auto) 4.2 % (0.0-7.3) 02/15/21 05:00 Eos % (Auto) 1.2 % (0.0-4.3) 02/15/21 05:00 Baso % (Auto) 0.6 % (0.0-1.8) 02/15/21 05:00 Lymph # (Auto) 1.1 K/mm3 (1.2-5.4) L 02/15/21 05:00 [place] # (Auto) 0.4 K/mm3 (0.0-0.8) 02/15/21 05:00 Eos # (Auto) 0.1 K/mm3 (0.0-0.4) 02/15/21 05:00 Baso # (Auto) 0.1 K/mm3 (0.0-0.1) 02/15/21 05:00 Add Manual Diff Complete 02/16/21 Unknown Total Counted 100 02/16/21 Unknown Seg Neutrophils % 83.0 % (40.0-70.0) H 02/15/21 05:00 Seg Neuts % (Manual) 85.0 % (40.0-70.0) H 02/16/21 Unknown Band Neutrophils % 2.0 % 02/16/21 Unknown Lymphocytes % (Manual) 6.0 % (13.4-35.0) L 02/16/21 Unknown Reactive Lymphs % (Man) 1.0 % 01/27/21 05:29 Monocytes % (Manual) 5.0 % (0.0-7.3) 02/16/21 Unknown Eosinophils % (Manual) 1.0 % (0.0-4.3) 02/16/21 Unknown Basophils % (Manual) 1.0 % (0.0-1.8) 02/06/21 Unknown Metamyelocytes % 1.0 % 02/16/21 Unknown Nucleated RBC % 4.0 % (0.0-0.9) H 02/16/21 Unknown Seg Neutrophils # 8.6 K/mm3 (1.8-7.7) H 02/15/21 05:00 Seg Neutrophils # Man 7.6 K/mm3 (1.8-7.7) 02/16/21 Unknown Band Neutrophils # 0.2 K/mm3 02/16/21 Unknown Lymphocytes # (Manual) 0.5 K/mm3 (1.2-5.4) L 02/16/21 Unknown Abs React Lymphs (Man) 0.0 K/mm3 02/16/21 Unknown Monocytes # (Manual) 0.4 K/mm3 (0.0-0.8) 02/16/21 Unknown Eosinophils # (Manual) 0.1 K/mm3 (0.0-0.4) 02/16/21 Unknown Basophils # (Manual) 0.0 K/mm3 (0.0-0.1) 02/16/21 Unknown Metamyelocytes # 0.1 K/mm3 02/16/21 Unknown Myelocytes # 0.0 K/mm3 02/16/21 Unknown Promyelocytes # 0.0 K/mm3 02/16/21 Unknown Blast Cells # 0.0 K/mm3 02/16/21 Unknown WBC Morphology Not Reportable 02/16/21 Unknown Hypersegmented Neuts Not Reportable 02/16/21 Unknown Hyposegmented Neuts Not Reportable 02/16/21 Unknown Hypogranular Neuts Not Reportable 02/16/21 Unknown Smudge Cells Not Reportable 02/16/21 Unknown Toxic Granulation Not Reportable 02/16/21 Unknown Toxic Vacuolation Not Reportable 02/16/21 Unknown Dohle Bodies Not Reportable 02/16/21 Unknown Pelger-Huet Anomaly Not Reportable 02/16/21 Unknown Fátima Rods Not Reportable 02/16/21 Unknown Platelet Estimate Consistent w auto 02/16/21 Unknown Clumped Platelets Not Reportable 02/16/21 Unknown Plt Clumps, EDTA Not Reportable 02/16/21 Unknown Large Platelets Not Reportable 02/16/21 Unknown Giant Platelets Not Reportable 02/16/21 Unknown Platelet Satelliting Not Reportable 02/16/21 Unknown Plt Morphology Comment Not Reportable 02/16/21 Unknown RBC Morphology Not Reportable 02/16/21 Unknown Dimorphic RBCs Not Reportable 02/16/21 Unknown Polychromasia Not Reportable 02/16/21 Unknown Hypochromasia Not Reportable 02/16/21 Unknown Poikilocytosis Not Reportable 02/16/21 Unknown Anisocytosis 1+ 02/16/21 Unknown Microcytosis Not Reportable 02/16/21 Unknown Macrocytosis Not Reportable 02/16/21 Unknown Spherocytes Not Reportable 02/16/21 Unknown Pappenheimer Bodies Not Reportable 02/16/21 Unknown Sickle Cells Not Reportable 02/16/21 Unknown Target Cells Not Reportable 02/16/21 Unknown Tear Drop Cells Not Reportable 02/16/21 Unknown Ovalocytes Not Reportable 02/16/21 Unknown Helmet Cells Not Reportable 02/16/21 Unknown [place] Bodies Not Reportable 02/16/21 Unknown [place] Rings Not Reportable 02/16/21 Unknown [place] Cells Not Reportable 02/16/21 Unknown Bite Cells Not Reportable 02/16/21 Unknown Crenated Cell Not Reportable 02/16/21 Unknown Elliptocytes Not Reportable 02/16/21 Unknown Acanthocytes (Spur) Not Reportable 02/16/21 Unknown Rouleaux Not Reportable 02/16/21 Unknown Hemoglobin C Crystals Not Reportable 02/16/21 Unknown Schistocytes Not Reportable 02/16/21 Unknown Malaria parasites Not Reportable 02/16/21 Unknown [place] Bodies Not Reportable 02/16/21 Unknown Hem Pathologist Commnt No 02/16/21 Unknown PT 14.9 Sec. (12.2-14.9) 02/11/21 08:27 INR 1.17 (0.87-1.13) H 02/11/21 08:27 D-Dimer 4840.82 ng/mlDDU (0-234) H 02/19/21 05:45 ABG pH 7.232 (7.320-7.450) L 02/19/21 05:00 POC ABG pCO2 64.3 mmHg (32.0-48.0) H 02/19/21 05:00 ABG pCO2 51.2 mm Hg 02/12/21 04:41 POC ABG pO2 106.1 mmHg (83-108) 02/19/21 05:00 ABG pO2 69.0 mm Hg (80.0-90.0) L 02/12/21 04:41 POC ABG HCO3 26.4 02/19/21 05:00 ABG HCO3 32.5 mmol/L (20.0-26.0) H 02/12/21 04:41 ABG O2 Saturation 97.8 (0-100) 02/19/21 05:00 ABG O2 Content 4.3 (0.0-44) 02/12/21 04:41 POC ABG Base Excess -1.4 02/19/21 05:00 ABG Base Excess 7.7 mmol/L (-2.0-3.0) H 02/12/21 04:41 ABG Hemoglobin 8.1 (12.0-17.5) L 02/19/21 05:00 ABG Oxyhemoglobin 95.9 (94-98) 02/19/21 05:00 ABG Carboxyhemoglobin 2.4 % (0.0-5.0) 02/12/21 04:41 ABG Methemoglobin 0.3 (0.0-1.5) 02/19/21 05:00 ABG Sodium 133.5 mmol/L (136.0-145.0) L 02/19/21 05:00 ABG Potassium 4.3 mmol/L (3.40-4.50) 02/19/21 05:00 ABG Chloride 102.0 mmol/L (98-107) 02/19/21 05:00 ABG Glucose 148 mg/dL (65-95) H 02/19/21 05:00 Oxyhemoglobin 94.7 % (95.0-99.0) L 02/12/21 04:41 Carboxyhemoglobin 1.6 (0.5-1.5) H 02/19/21 05:00 FiO2 75 % 02/12/21 04:41 FiO2 % 85.0 02/19/21 05:00 Sodium 135 mmol/L (137-145) L 02/19/21 05:45 Potassium 4.4 mmol/L (3.6-5.0) 02/19/21 05:45 Chloride 97.8 mmol/L (98-107) L 02/19/21 05:45 Carbon Dioxide 27 mmol/L (22-30) 02/19/21 05:45 Anion Gap 15 mmol/L 02/19/21 05:45 BUN 58 mg/dL (9-20) H 02/19/21 05:45 Creatinine 5.6 mg/dL (0.8-1.3) H 02/19/21 05:45 Estimated GFR 13 ml/min 02/19/21 05:45 BUN/Creatinine Ratio 10 % 02/19/21 05:45 Glucose 140 mg/dL (75-100) H 02/19/21 05:45 POC Glucose 119 mg/dL (70-105) H 02/19/21 17:48 Hemoglobin A1c 6.3 % (4-6) H 02/02/21 16:00 Lactic Acid 1.90 mmol/L (0.7-2.0) 01/24/21 14:38 Calcium 8.6 mg/dL (8.4-10.2) 02/19/21 05:45 Phosphorus 3.90 mg/dL (2.5-4.5) 02/13/21 06:40 Magnesium 1.70 mg/dL (1.7-2.3) 02/16/21 17:09 Ferritin 951.8 ng/mL (30.0-300.0) H 02/19/21 05:45 Total Bilirubin 1.50 mg/dL (0.1-1.2) H 01/26/21 05:47 AST 37 units/L (5-40) 01/26/21 05:47 ALT 29 units/L (7-56) 01/26/21 05:47 Alkaline Phosphatase 70 units/L (35-129) 01/26/21 05:47 Lactate Dehydrogenase 345 units/L (91-180) H 02/19/21 05:45 C-Reactive Protein 15.20 mg/dL (0.00-1.30) H 02/19/21 05:45 Total Protein 7.2 g/dL (6.3-8.2) 01/26/21 05:47 Albumin 2.2 g/dL (3.9-5) L 01/26/21 05:47 Albumin/Globulin Ratio 0.4 % 01/26/21 05:47 Triglycerides 195 mg/dL (2-149) H 02/19/21 05:45 Procalcitonin 18.94 ng/mL (<0.15) 02/16/21 17:09 Arterial Blood Glucose 148 mg/dL (65-95) H 02/19/21 05:00 Arterial Blood Ionized Calcium 4.6 mg/dL (4.6-5.3) 02/19/21 05:00 Urine Color Nehal (Yellow) 01/22/21 22:39 Urine Turbidity Cloudy (Clear) 01/22/21 22:39 Urine pH 5.0 (5.0-7.0) 01/22/21 22:39 Ur Specific [place] 1.017 (1.003-1.030) 01/22/21 22:39 Urine Protein 100 mg/dl mg/dL (Negative) 01/22/21 22:39 Urine Glucose (UA) Neg mg/dL (Negative) 01/22/21 22:39 Urine Ketones Neg mg/dL (Negative) 01/22/21 22:39 Urine Blood Mod (Negative) 01/22/21 22:39 Urine Nitrite Neg (Negative) 01/22/21 22:39 Urine Bilirubin Neg (Negative) 01/22/21 22:39 Urine Urobilinogen 2.0 mg/dL (<2.0) 01/22/21 22:39 Ur Leukocyte Esterase Mod (Negative) 01/22/21 22:39 Urine WBC (Auto) < 1.0 /HPF (0.0-6.0) 01/22/21 22:39 Urine RBC (Auto) < 1.0 /HPF (0.0-6.0) 01/22/21 22:39 U Epithel Cells (Auto) < 1.0 /HPF (0-13.0) 01/22/21 22:39 Urine Osmolality 416 Mosm/kg 01/30/21 12:15 Urine Total Volume 2300 ml 01/30/21 12:00 Urine Creatinine 53.0 mg/dL (0.1-20.0) H 01/30/21 12:00 Ur Creatinine 24 Hour 1.2 (0.8-2.8) 01/30/21 12:00 Urine Sodium 28 mmol/L 01/22/21 22:39 Nasal Screen MRSA (PCR) Negative (Negative) 02/02/21 13:20 Random Vancomycin 13.7 ug/mL (0-40.0) 02/07/21 10:40 Coronavirus (PCR) Positive (Negative) A 02/18/21 10:00 Hepatitis A IgM Ab Non-reactive (NonReactive) 02/03/21 Unknown Hep Bs Antigen Non-reactive (Negative) 02/03/21 Unknown Hep B Core IgM Ab Non-reactive (NonReactive) 02/03/21 Unknown Hepatitis C Antibody Non-reactive (NonReactive) 02/03/21 Unknown Blood Type B POSITIVE 02/17/21 07:45 Antibody Screen Negative 02/17/21 07:45 Crossmatch See Detail 02/17/21 07:45 Black/IV: Voiding Method Incontinent Active Medications - Current Medications Current Medications: Generic Name Dose Route Start Last Admin Trade Name Freq PRN Reason Stop Dose Admin Acetaminophen 650 mg 01/23/21 02:25 02/11/21 18:20 Acetaminophen 650 Mg Rect Supp [place] 650 mg Q4H PRN Administration Pain, Mild (1-3) Acetaminophen 650 mg 01/24/21 12:58 02/15/21 18:06 Acetaminophen 325 Mg/10.15 Ml Oral Liqd Unit Dose FEEDTUBE 650 mg Q6H PRN Administration Pain, Mild (1-3) Lipase/Protease/Amylase 1 each 01/26/21 14:25 Lipase 10,500/Protease 25,000/Amylase 43,750 (Units) Dr Cap FEEDTUBE PRN PRN For Clogged Feeding Tube Dextrose 50 ml 01/27/21 07:24 Dextrose 50% In Water (25gm) 50 Ml Syringe IV Q30MIN PRN Hypoglycemia Protocol Fentanyl 50 mcg 01/22/21 22:39 02/10/21 13:46 Fentanyl 100 Mcg/2 Ml Inj IV 50 mcg Q10MIN PRN Administration ANALGESIA Heparin Sodium (Porcine) 2,000 unit 02/11/21 09:38 Heparin 10,000 Units/10 Ml Vial IV SAGRARIO PRN hemodialysis Heparin Sodium (Porcine) 5,000 unit 02/19/21 14:00 02/19/21 21:10 Heparin 5,000 Unit/1 Ml Vial SUB-Q 5,000 unit Q8HR CECE Administration Hydrophilic Ointment 1 applic 01/22/21 22:39 02/17/21 17:14 Lip Therapy Vaseline TP 1 applic Q2HR PRN Administration Dry Lips Fentanyl Citrate 2,000 mcg in 100 mls @ 6.124 mls/hr 01/22/21 23:00 02/19/21 20:29 Fentanyl Drip Premix IV 3 mcg/kg/hr TITR CECE 18.371 mls/hr Administration Protocol 1 MCG/KG/HR Propofol 1,000 mg in 100 mls @ 3.674 mls/hr 01/22/21 23:45 02/19/21 23:22 Diprivan 10 Mg/Ml IV 20 mcg/kg/min TITR CECE 14.696 mls/hr Administration Protocol 5 MCG/KG/MIN Norepinephrine 4 mg in 250 mls @ 7.5 mls/hr 01/28/21 14:00 02/08/21 06:08 Levophed Drip 4 Mg/Ns 250 Ml IV 0 mcg/min TITR CECE 0 mls/hr Titration Protocol 2 MCG/MIN Dexmedetomidine HCl 1,000 mcg/ 260 mls @ 6.368 mls/hr 01/30/21 20:00 02/20/21 00:10 Sodium Chloride IV 1.2 mcg/kg/hr TITRATE CECE 38.211 mls/hr Administration Protocol 0.2 MCG/KG/HR Sodium Chloride 100 mls @ 999 mls/hr 02/15/21 16:45 Nacl 0.9% IV SAGRARIO PRN Hypotension Lansoprazole 30 mg 02/18/21 10:00 02/19/21 10:46 Lansoprazole 30 Mg Solutab FEEDTUBE 30 mg QDAY CECE Administration Multi-Ingred Cream/Lotion/Oil/Oint 1 applic 01/22/21 22:39 02/01/21 09:33 Mineral Oil/Petrolatum, White Ophth Oint 3.5 Gm OU 1 applic Q4HR PRN Administration Dry Eye(s) Ondansetron HCl 4 mg 01/23/21 02:17 Ondansetron 4 Mg/2 Ml Inj IV Q8H PRN Nausea And Vomiting Senna/Docusate Sodium 2 tab 02/17/21 11:00 02/19/21 20:29 Sennosides/Docusate Sodium 8.6/50 Mg Tab PO 2 tab TID CECE Administration Simple Syrup 15 ml 01/26/21 14:25 Simple Syrup 15 Ml FEEDTUBE PRN PRN Hypoglycemia Simple Syrup 30 ml 01/26/21 14:25 Simple Syrup 15 Ml FEEDTUBE PRN PRN Hypoglycemia Sodium Bicarbonate 325 mg 01/26/21 14:25 Sodium Bicarbonate 325 Mg Tab FEEDTUBE PRN PRN For Clogged Feeding Tube Nutrition/Malnutrition Assess - Dietary Evaluation Nutrition/Malnutrition Findings: Nutrition Notes Start: 01/26/21 13:59 Freq: Status: Active Protocol: Document 02/19/21 13:29 CW (Rec: 02/19/21 13:34 CW [id number]) Nutrition Notes Initial or Follow up Reassessment Current Diagnosis Acute Kidney Injury,Diabetes, Sepsis,Hypertension, Respiratory Failure, Hyperlipidemia Other Pertinent Diagnosis on HD, COVID-19 (+), bilat pneu Current Diet TF - Nepro at 36 ml/hr Labs/Tests Na 135 BUN 58 Cr 5.6 Pertinent Medications propofol at 11.022 (provided 291 kcal) Senna Mg Citrate Height 5 ft 8 in Weight 162 kg [place] Body Weight (kg) 70.00 BMI 54.3 Weight change and time frame wt stable Weight Status Morbidly Obese Subjective/Other Information F/U for Na labs and TF tolerance. Pt continues to tolerate TF regimen at goal. Pt continues to not have a BM. RN treating with Rx. Pt remains of mechanical vent. Percent of energy/protein needs met: 80%/61% Burn Absent Trauma Absent GI Symptoms Constipation Difficulty In Swallowing Skin Integrity/Comment pressure ulcer to lips Current % PO Negligible Minimum of two criteria No Fluid Accumulation Moderate to Severe (severe) #2 Nutrition Diagnosis Increased nutrient needs ( specify in comment below) Comments: protein Diagnosis Progress(for reassessment Continues documentation) #1 Nutrition Diagnosis Inadequate oral intake Diagnosis Progress(for reassessment Continues documentation) Is patient on ventilator? Yes Is Patient Ambulatory and/or Out of Bed No REE-([facility]-confined to bed) 2877.408 Kcal/Kg value to use for calculation 12 Approximate Energy Requirements Using 1944 kcal/Kg Calculation Used for Recommendations Kcal/kg Additional Notes Pro needs >1.2g/kg adjBW: > 115g/day for HD needs Fluid needs 500+ total output or per MD Nutrition Intervention Change Diet Order: Continue TF Nutrition Support: Nepro at 46 ml/hr with a free water flush of 125 ml q4h for hyponatremia. Resume flush of 200 ml q4h once hyponatremia resolved. Kcal 1,987 Protein (gm) 89 Fluid (mL) 803 Goal #1 TF tolerance Goal #2 TF to meet at least 75% energy and pro needs Anticipated Discharge Needs: unable to determine at this time Follow-Up By: 02/24/21 Additional Comments F/U for TF tolerance
[2021-02-20] MEDS: dexmedeTOMIDine 1,000 MCG in SODIUM CHLORIDE 0.9% 250ML 250 ML IV SCH ×3 (00:10→19:10)
[2021-02-20] MEDS: fentaNYL DRIP Premix 2,000 MCG/100 ML BAG IV SCH ×4 (01:55→23:42)
[2021-02-20] MEDS: HEPARIN 5,000 UNIT/1 ML VIAL SUB-Q SCH ×3 (05:47→21:21)
[2021-02-20 06:28] LABS: Calcium 8.1 mg/dL (8.4-10.2)
[2021-02-20] MEDS: LANSOPRAZOLE 30 MG SOLUTAB FEEDTUBE SCH (09:43)
[2021-02-20] MEDS: SENNOSIDES/DOCUSATE SODIUM 8.6/50 MG TAB PO SCH ×3 (09:43→20:12)
[2021-02-20] MEDS: EPOETIN ALFA-EPBX 20,000 UNIT/1 ML VIAL IV PRN (12:06)
--- NOTE | 2021-02-20 12:27 | Progress Note ---
Assessment and Plan 60 y/o male with ARDS secondary most likely to COVID 19 pneumonia. 02/20/21: HD today, goal is 3 liters. Continue sedation, did have to increase Diprovan but this is ok. Will need to check levels soon. BM complete. Continue prophylactic anticoagulation. Guarded prognosis. 02/19/21: HD per renal, likely tomorrow. Continue sedation. Has not had a BM so will give full dose of mag citrate today. STarted prophylactic anticoagulati on. Wean FiO2 as tolerated. Will call family tomorrow. 02/18/21: HD per renal. continue sedation to help with oxygenation. Overall prognosis remains very guarded to poor. IMS has been speaking with family so will defer to them. Currently patient is not a candidate for trach given his oxygen and peep requirements. 02/17/21: Fine with cutting back on HD as not really helped with oxygenation. Continue to wean as tolerated for sats >88% and PaO2 >55. Sedation to achieve negative rass scoring. very very guarded to poor prognosis. 02/16/21: HD now. Wean FiO2 for sats> 88%. Agree with stopping ativan and holding on starting diprovan to see if the patient truly needs it. pH holding off bicarb drip goal is >7.2. Very very guarded to poor prognosis. 02/13/21: HD again now. Replace electrolytes per renal. Continue abx therapy per ID. Will get RT to wean FiO2 as not done on yesterday. Will restart diprovan post HD and stop ativan. Check Levels (Triglycerides on Tue or Tuesday). Can stop bicarb drip however must make sure that ABG is checked daily to make sure that pH is good. Very very guarded prognosis. 02/12/21: HD again today. Had a 12 second run of VTACH today as well. Stable. K is low, checking mag levels. Will alert Renal so they can adjust bath as needed. Post HD will start to wean FiO2 again. Unable to prone as patient does not tolerate. Repeat blood cultures negative and first set only showing Coag Negative Staph. Prognosis still remains very very guarded to poor. Will consider restarting Diprovan tomorrow. Patient now intubated for 20 days now but not candidate for trach yet given elevated PEEP and FiO2 levels but did discuss on rounds. 02/11/21: Vascath placed today for HD. Orders already in. Wean FiO2 for sats >88%. Abx per ID. Repeat cultures so far negative. Given persistent fevers, will check upper ext dopplers. Prognosis still remains guarded. 02/10/21: Triglycerides improved but current sedation is adequate so will hold on stopping ativan to add propofol back. Awaiting Labs from this morning. Plan to replace HD catheter tomorrow morning as early as possible. Fever curve is trending down. Continue bicarb drip for now. Prognosis remains guarded. WIll speak with family tomorrow to update. 02/09/21: Repeat Triglycerides today. Follow up repeat blood cultures. Given continued fever will hold on replacing vascath today. If fever free the next 24 hours, can place in the morning or Tuesday morning. Will likely need blood with next HD session. Continue bicarb drip to help manage respiratory as well as metabolic acidosis. Wean FiO2 for sats >88% and PaO2 >55. Overall prognosis remains guarded to poor. 02/08/21: Picc out today. Will repeat culture if patient spikes again today. Plan to replace HD catheter either late tomorrow or Tuesday morning. Continue current level of sedation. Abx therapy per ID. Wean FiO2 as tolerated, doubt will be able to do much until we can resume HD. Guarded prognosis. Replaced potassium. Will need to check in the morning. Will repeat K later this afterno on. 02/07/21: Biggest issue now is that patient's numbers are better with HD but now with bacteremia, concern for line infection. ID is correct in requesting line holiday. Has a picc and an Right IJ Dialysis catheter with 3 ports. Currently getting HD today. Have not seen renal yet. Will pull right IJ line post HD and plan to replace it Tuesday evening or Tuesday. Continue bicarb drip for now and will keep picc as patient has been requiring levophed. If able to be weaned off levophed, will remove picc either tomorrow or Tuesday. Continue Ativan, Precedex and Fent drips, repeat Triglycerides on Tuesday. Very very guarded prognosis. Will remove Black today as well. 02/06/21: Will add bicarb drip at 125/hr. Giving 2 amps of NaHCO3 push now. Will repeat ABG this afternoon, may just ask for Art Line if possible. HD today per renal and I spoke with them about the bicarb drip. Long discussion with Sister, Significant and other and another family member on the phone on yesterday. I tried my best to explain the severity of the clinical state but not sure if they fully understood. The patient is very very ill and history suggests that his outcome will be poor (intubated with covid and renal failure on dialysis). This was expressed with the family. Will continue all supportive measures. Checking triglyceride levels today. 02/05/21: WIll increase PEEP to 16. Can increase pressors if needed for BP control during HD. Follow up cultures. If negative will scan legs and arms again for VTE. Repeat ABG at 1400 today. Will speak with sister and Girlfriend on phone today. 02/04/21: HD again today per renal notes. Likely will need daily HD. New fevers. Will draw blood and urine cultures if able to still make urine.. Repeat CXR. May need to check dopplers if all of those studies are negative. Wean FIO2 as tolerated. Unable to tolerate proning. Guarded to poor prognosis. 02/03/21: HD today per renal. Wean FiO2 as tolerated. No further proning as patient cannot tolerate it, however with volume removal, may consider in the future. Use pressors to keep MAPs 65 and greater for HD purporses so volume can be removed. (IJ was wide open (filled with blood)) with patient sitting up at 45 degrees. Guarded prognosis. 02/02/21: After renal speaks with family, will place vascath today. Agree with bicarb drip but will order some pushes now to help with pH. Overall prognosis is very very guarded to poor now that patient is COVID positive and requiring renal replacement therapy. Mortality is very high in these patients. Continue steroid therapy. Unable to tolerate proning. 01/30/21: Will plan for proning later today. Goal will be at least 12hrs but long is okay. Speaking with pharmacy to see if we can get paralytic for a longer period of time. Regardless will prone. Continue heavy sedation. BP stable. Continue steroids. Very very guarded prognosis. 01/29/21: will increase tidal volume and/or increase respiratory rate. Repeat ABG this afternoon. Continue paralytic and adequate sedation. Continue steroid and remdesivir, follow up any renal recs. Prognosis remains guarded. Wean Fio2 for sats >88% 01/28/21: Increased PEEP to 16. Will paralyze patient today and increase sedation. Ordering picc line for possible vasopressor therapy needs. Continue BID steroids. Renal function is slightly better today with fluids but could be making oxygenation worse. Not able to diurese. Still making urine. Continue Remdesivir. Watch for fever curve. If not improvement in the next 24 hours with paralyzing, will prone tomorrow morning. 01/27/21: Continue PEEP at 14. No weaning until FiO2 is at or below 40-45%. Continue anticoagulation. Getting Remdesivir now. Continue BID steroids. Renal has increased the fluids. Monitor urine output and renal function. Overall prognosis is very very guarded, especially if renal status worsens. 01/26/21: Increase PEEP to 14. Will add Precedex therapy. If patient does not respond to increases in PEEP may need to prone. Will place patient on lovenox and will feed patient. Remdesivir coming. Continue BID steroids. Prognosis is guarded. 01/25/21: Hold on proning today. Continue BID steroids. ABG this AM was adequate. Pending abg tomorrow, may increase PEEP if not able to wean FiO2 any further. Per charting Remdesivir to arrive tomorrow. Guarded prognosis. 01/24/21: Continue BID steroids. No abg done this am but able to wean FiO2. Will obtain ABG in the am. Hold on proning for right now. Renal following, would like to diurese but they are given fluids for deisi. Agree with ID assessment and note. Guarded prognosis. 1. Increase steroids to BID given size 2. Check with ID to see if he is a candidate for remdesivir or any other expe riemental therapy 3. Hold on proning for right now 4. Renal consulted and giving IVF's currently Guarded prognosis. CCT 31 minutes. Subjective Date of service: 02/20/21 Principal diagnosis: DEISI Interval history: No acute events. Down to 75% today with PaO2 greater than 70 on 75%. Remainder is negative. Objective Vital Signs - 12hr 02/20/21 02/20/21 02/20/21 00:30 00:55 01:00 Temperature Pulse Rate 96 H 95 H 95 H Pulse Rate [ From Monitor] Respiratory 35 H 35 H Rate Blood Pressure 112/57 112/53 108/62 O2 Sat by Pulse 92 93 95 Oximetry O2 Sat by Pulse Oximetry [ Anterior Bilateral Throughout] 02/20/21 02/20/21 02/20/21 01:30 02:00 02:30 Temperature Pulse Rate 95 H 93 H 93 H Pulse Rate [ From Monitor] Respiratory 36 H 35 H 35 H Rate Blood Pressure 105/61 108/57 107/57 O2 Sat by Pulse 92 96 95 Oximetry O2 Sat by Pulse Oximetry [ Anterior Bilateral Throughout] 02/20/21 02/20/21 02/20/21 03:00 03:30 04:00 Temperature Pulse Rate 93 H 91 H 90 Pulse Rate [ 90 From Monitor] Respiratory 36 H 36 H 35 H Rate Blood Pressure 109/56 106/52 104/60 O2 Sat by Pulse 95 92 96 Oximetry O2 Sat by Pulse Oximetry [ Anterior Bilateral Throughout] 02/20/21 02/20/21 02/20/21 04:30 04:44 05:00 Temperature Pulse Rate 89 88 Pulse Rate [ From Monitor] Respiratory 36 H 36 H Rate Blood Pressure 104/60 106/62 97/57 O2 Sat by Pulse 94 93 94 Oximetry O2 Sat by Pulse Oximetry [ Anterior Bilateral Throughout] 02/20/21 02/20/21 02/20/21 05:30 06:00 06:30 Temperature Pulse Rate 89 90 93 H Pulse Rate [ From Monitor] Respiratory 36 H 33 H 35 H Rate Blood Pressure 105/60 116/63 125/69 O2 Sat by Pulse 95 96 92 Oximetry O2 Sat by Pulse Oximetry [ Anterior Bilateral Throughout] 02/20/21 02/20/21 02/20/21 07:00 07:30 07:35 Temperature 99.1 F Pulse Rate 100 H 102 H Pulse Rate [ From Monitor] Respiratory 37 H 36 H Rate Blood Pressure 131/72 137/77 O2 Sat by Pulse 92 96 Oximetry O2 Sat by Pulse Oximetry [ Anterior Bilateral Throughout] 02/20/21 02/20/21 02/20/21 08:00 08:30 09:00 Temperature 99.1 F Pulse Rate 102 H 102 H 101 H Pulse Rate [ From Monitor] Respiratory 35 H 35 H 35 H Rate Blood Pressure 125/72 126/69 122/65 O2 Sat by Pulse 94 90 Oximetry O2 Sat by Pulse Oximetry [ Anterior Bilateral Throughout] 02/20/21 02/20/21 02/20/21 09:15 09:23 09:30 Temperature 98.3 F Pulse Rate 103 H 102 H 102 H Pulse Rate [ From Monitor] Respiratory 36 H 34 H Rate Blood Pressure 153/82 120/65 145/82 O2 Sat by Pulse 93 91 Oximetry O2 Sat by Pulse 91 Oximetry [ Anterior Bilateral Throughout] 02/20/21 02/20/21 02/20/21 09:45 10:00 10:15 Temperature Pulse Rate 103 H 102 H 103 H Pulse Rate [ From Monitor] Respiratory Rate Blood Pressure 147/80 131/70 128/67 O2 Sat by Pulse Oximetry O2 Sat by Pulse Oximetry [ Anterior Bilateral Throughout] 02/20/21 02/20/21 02/20/21 10:30 10:45 11:00 Temperature Pulse Rate 102 H 101 H 100 H Pulse Rate [ From Monitor] Respiratory Rate Blood Pressure 121/67 123/68 126/67 O2 Sat by Pulse Oximetry O2 Sat by Pulse Oximetry [ Anterior Bilateral Throughout] 02/20/21 02/20/21 02/20/21 11:15 11:30 11:45 Temperature Pulse Rate 99 H 99 H 100 H Pulse Rate [ From Monitor] Respiratory Rate Blood Pressure 123/62 121/67 119/64 O2 Sat by Pulse Oximetry O2 Sat by Pulse Oximetry [ Anterior Bilateral Throughout] 02/20/21 02/20/21 02/20/21 12:00 12:15 12:17 Temperature 98.3 F Pulse Rate 99 H 100 H Pulse Rate [ From Monitor] Respiratory Rate Blood Pressure 122/67 131/73 O2 Sat by Pulse Oximetry O2 Sat by Pulse Oximetry [ Anterior Bilateral Throughout] Constitutional: comatose Eyes: non-icteric ENT: other (orally intubated and sedated) Neck: supple Effort: mildly labored Ascultation: Bilateral: clear Percussion: Bilateral: not dull Cardiovascular: regular rate and rhythm (no mrg) Gastrointestinal: normoactive bowel sounds, soft, non-tender, non-distended Integumentary: normal Extremities: no cyanosis, no edema, pink and warm Neurologic: unable to assess CBC and BMP: 02/18/21 05:02 02/20/21 04:00 ABG, PT/INR, D-dimer: ABG ABG pH 7.276 (7.320-7.450) L 02/20/21 03:20 POC ABG pCO2 57.3 mmHg (32.0-48.0) H 02/20/21 03:20 ABG pCO2 51.2 mm Hg 02/12/21 04:41 POC ABG pO2 71.0 mmHg (83-108) L 02/20/21 03:20 ABG pO2 69.0 mm Hg (80.0-90.0) L 02/12/21 04:41 POC ABG HCO3 26.1 02/20/21 03:20 ABG O2 Saturation 93.7 (0-100) 02/20/21 03:20 PT/INR, D-dimer PT 14.9 Sec. (12.2-14.9) 02/11/21 08:27 INR 1.17 (0.87-1.13) H 02/11/21 08:27 D-Dimer 4840.82 ng/mlDDU (0-234) H 02/19/21 05:45 Abnormal lab findings: Abnormal Labs 01/22/21 01/22/21 01/22/21 22:39 22:57 22:57 WBC RBC Hgb Hct MCV MCH MCHC RDW Plt Count Lymph % (Auto) 6.6 L Lymph # (Auto) 0.5 L Seg Neutrophils % 87.6 H Seg Neuts % (Manual) Lymphocytes % (Manual) Nucleated RBC % Seg Neutrophils # Seg Neutrophils # Man Lymphocytes # (Manual) Eosinophils # (Manual) INR D-Dimer ABG pH POC ABG pCO2 POC ABG pO2 ABG pO2 ABG HCO3 ABG O2 Saturation ABG Base Excess ABG Hemoglobin ABG Oxyhemoglobin ABG Sodium ABG Potassium ABG Chloride ABG Glucose Oxyhemoglobin Carboxyhemoglobin Sodium 129 L Potassium 3.4 L Chloride 90.4 L Carbon Dioxide BUN 34 H Creatinine 1.5 H Glucose 146 H POC Glucose Hemoglobin A1c Lactic Acid Calcium 7.8 L Phosphorus Magnesium Ferritin Total Bilirubin AST 75 H ALT 57 H Lactate Dehydrogenase C-Reactive Protein Albumin 2.9 L Triglycerides Arterial Blood Glucose Arterial Blood Ionized Calcium Urine Creatinine 301.2 H Coronavirus (PCR) Crossmatch 01/22/21 01/22/21 01/22/21 22:57 22:57 22:57 WBC RBC Hgb Hct MCV MCH MCHC RDW Plt Count Lymph % (Auto) Lymph # (Auto) Seg Neutrophils % Seg Neuts % (Manual) Lymphocytes % (Manual) Nucleated RBC % Seg Neutrophils # Seg Neutrophils # Man Lymphocytes # (Manual) Eosinophils # (Manual) INR D-Dimer 1173.89 H ABG pH POC ABG pCO2 POC ABG pO2 ABG pO2 ABG HCO3 ABG O2 Saturation ABG Base Excess ABG Hemoglobin ABG Oxyhemoglobin ABG Sodium ABG Potassium ABG Chloride ABG Glucose Oxyhemoglobin Carboxyhemoglobin Sodium Potassium Chloride Carbon Dioxide BUN Creatinine Glucose 149 H POC Glucose Hemoglobin A1c Lactic Acid 2.10 H* Calcium Phosphorus Magnesium Ferritin Total Bilirubin AST ALT Lactate Dehydrogenase 685 H C-Reactive Protein 30.40 H Albumin Triglycerides Arterial Blood Glucose Arterial Blood Ionized Calcium Urine Creatinine Coronavirus (PCR) Crossmatch 01/22/21 01/23/21 01/23/21 22:57 08:41 10:01 WBC RBC Hgb Hct MCV MCH MCHC RDW Plt Count Lymph % (Auto) Lymph # (Auto) Seg Neutrophils % Seg Neuts % (Manual) Lymphocytes % (Manual) Nucleated RBC % Seg Neutrophils # Seg Neutrophils # Man Lymphocytes # (Manual) Eosinophils # (Manual) INR D-Dimer ABG pH POC ABG pCO2 POC ABG pO2 ABG pO2 ABG HCO3 ABG O2 Saturation ABG Base Excess ABG Hemoglobin ABG Oxyhemoglobin ABG Sodium ABG Potassium ABG Chloride ABG Glucose Oxyhemoglobin Carboxyhemoglobin Sodium 131 L Potassium Chloride 88.7 L Carbon Dioxide 18 L BUN 36 H Creatinine 1.6 H Glucose 147 H POC Glucose Hemoglobin A1c Lactic Acid Calcium 7.5 L Phosphorus Magnesium Ferritin 1207.0 H Total Bilirubin AST ALT Lactate Dehydrogenase C-Reactive Protein Albumin Triglycerides Arterial Blood Glucose Arterial Blood Ionized Calcium Urine Creatinine Coronavirus (PCR) Positive A Crossmatch 01/23/21 01/23/21 01/24/21 20:49 Unknown 00:10 WBC RBC Hgb Hct MCV MCH MCHC RDW Plt Count Lymph % (Auto) Lymph # (Auto) Seg Neutrophils % Seg Neuts % (Manual) Lymphocytes % (Manual) Nucleated RBC % Seg Neutrophils # Seg Neutrophils # Man Lymphocytes # (Manual) Eosinophils # (Manual) INR D-Dimer ABG pH POC ABG pCO2 POC ABG pO2 ABG pO2 165.4 H ABG HCO3 ABG O2 Saturation ABG Base Excess -2.5 L ABG Hemoglobin ABG Oxyhemoglobin ABG Sodium ABG Potassium ABG Chloride ABG Glucose Oxyhemoglobin Carboxyhemoglobin Sodium 130 L Potassium Chloride 91.0 L Carbon Dioxide 20 L BUN 52 H Creatinine 3.8 H D Glucose 150 H POC Glucose 125 H Hemoglobin A1c Lactic Acid Calcium 8.0 L Phosphorus Magnesium Ferritin Total Bilirubin AST 42 H ALT Lactate Dehydrogenase C-Reactive Protein Albumin 2.4 L Triglycerides Arterial Blood Glucose Arterial Blood Ionized Calcium Urine Creatinine Coronavirus (PCR) Crossmatch 01/24/21 01/24/21 01/24/21 05:05 05:05 05:05 WBC 14.0 H RBC Hgb Hct MCV 95 H MCH 33 H MCHC RDW Plt Count Lymph % (Auto) Lymph # (Auto) Seg Neutrophils % Seg Neuts % (Manual) 91.0 H Lymphocytes % (Manual) 4.0 L Nucleated RBC % Seg Neutrophils # Seg Neutrophils # Man 12.7 H Lymphocytes # (Manual) 0.6 L Eosinophils # (Manual) INR D-Dimer 6159.48 H ABG pH POC ABG pCO2 POC ABG pO2 ABG pO2 ABG HCO3 ABG O2 Saturation ABG Base Excess ABG Hemoglobin ABG Oxyhemoglobin ABG Sodium ABG Potassium ABG Chloride ABG Glucose Oxyhemoglobin Carboxyhemoglobin Sodium Potassium Chloride Carbon Dioxide BUN Creatinine Glucose POC Glucose Hemoglobin A1c Lactic Acid Calcium Phosphorus Magnesium Ferritin 1178.0 H Total Bilirubin AST ALT Lactate Dehydrogenase C-Reactive Protein Albumin Triglycerides Arterial Blood Glucose Arterial Blood Ionized Calcium Urine Creatinine Coronavirus (PCR) Crossmatch 01/24/21 01/24/21 01/24/21 05:05 05:05 05:05 WBC RBC Hgb Hct MCV MCH MCHC RDW Plt Count Lymph % (Auto) Lymph # (Auto) Seg Neutrophils % Seg Neuts % (Manual) Lymphocytes % (Manual) Nucleated RBC % Seg Neutrophils # Seg Neutrophils # Man Lymphocytes # (Manual) Eosinophils # (Manual) INR D-Dimer ABG pH POC ABG pCO2 POC ABG pO2 ABG pO2 ABG HCO3 ABG O2 Saturation ABG Base Excess ABG Hemoglobin ABG Oxyhemoglobin ABG Sodium ABG Potassium ABG Chloride ABG Glucose Oxyhemoglobin Carboxyhemoglobin Sodium 132 L Potassium Chloride 93.1 L Carbon Dioxide 21 L BUN 57 H Creatinine 3.7 H Glucose 133 H POC Glucose Hemoglobin A1c Lactic Acid 2.20 H* Calcium 7.7 L Phosphorus Magnesium Ferritin Total Bilirubin AST ALT Lactate Dehydrogenase 658 H C-Reactive Protein 33.20 H Albumin 2.4 L Triglycerides Arterial Blood Glucose Arterial Blood Ionized Calcium Urine Creatinine Coronavirus (PCR) Crossmatch 01/24/21 01/24/21 01/24/21 05:34 06:00 17:35 WBC RBC Hgb Hct MCV MCH MCHC RDW Plt Count Lymph % (Auto) Lymph # (Auto) Seg Neutrophils % Seg Neuts % (Manual) Lymphocytes % (Manual) Nucleated RBC % Seg Neutrophils # Seg Neutrophils # Man Lymphocytes # (Manual) Eosinophils # (Manual) INR D-Dimer ABG pH POC ABG pCO2 POC ABG pO2 ABG pO2 ABG HCO3 ABG O2 Saturation ABG Base Excess ABG Hemoglobin ABG Oxyhemoglobin ABG Sodium ABG Potassium ABG Chloride ABG Glucose Oxyhemoglobin Carboxyhemoglobin Sodium Potassium Chloride Carbon Dioxide BUN Creatinine Glucose POC Glucose 136 H 137 H Hemoglobin A1c Lactic Acid Calcium Phosphorus Magnesium 2.80 H Ferritin Total Bilirubin AST ALT Lactate Dehydrogenase C-Reactive Protein Albumin Triglycerides Arterial Blood Glucose Arterial Blood Ionized Calcium Urine Creatinine Coronavirus (PCR) Crossmatch 01/25/21 01/25/21 01/25/21 04:15 05:40 05:40 WBC RBC Hgb Hct MCV 95 H MCH 33 H MCHC 35 H RDW Plt Count Lymph % (Auto) Lymph # (Auto) Seg Neutrophils % Seg Neuts % (Manual) 95.0 H Lymphocytes % (Manual) 3.0 L Nucleated RBC % Seg Neutrophils # Seg Neutrophils # Man 7.8 H Lymphocytes # (Manual) 0.2 L Eosinophils # (Manual) INR D-Dimer ABG pH POC ABG pCO2 POC ABG pO2 63.2 L ABG pO2 ABG HCO3 ABG O2 Saturation ABG Base Excess ABG Hemoglobin ABG Oxyhemoglobin 89.6 L ABG Sodium ABG Potassium ABG Chloride ABG Glucose 165 H Oxyhemoglobin Carboxyhemoglobin 0.3 L Sodium Potassium Chloride Carbon Dioxide BUN 67 H Creatinine 3.4 H Glucose 153 H POC Glucose Hemoglobin A1c Lactic Acid Calcium 7.5 L Phosphorus Magnesium Ferritin Total Bilirubin 1.40 H AST 62 H ALT Lactate Dehydrogenase C-Reactive Protein Albumin 2.6 L Triglycerides Arterial Blood Glucose 165 H Arterial Blood Ionized Calcium 4.3 L Urine Creatinine Coronavirus (PCR) Crossmatch 01/25/21 01/25/21 01/25/21 05:59 12:00 17:17 WBC RBC Hgb Hct MCV MCH MCHC RDW Plt Count Lymph % (Auto) Lymph # (Auto) Seg Neutrophils % Seg Neuts % (Manual) Lymphocytes % (Manual) Nucleated RBC % Seg Neutrophils # Seg Neutrophils # Man Lymphocytes # (Manual) Eosinophils # (Manual) INR D-Dimer ABG pH POC ABG pCO2 POC ABG pO2 ABG pO2 ABG HCO3 ABG O2 Saturation ABG Base Excess ABG Hemoglobin ABG Oxyhemoglobin ABG Sodium ABG Potassium ABG Chloride ABG Glucose Oxyhemoglobin Carboxyhemoglobin Sodium Potassium Chloride Carbon Dioxide BUN Creatinine Glucose POC Glucose 140 H 143 H 149 H Hemoglobin A1c Lactic Acid Calcium Phosphorus Magnesium Ferritin Total Bilirubin AST ALT Lactate Dehydrogenase C-Reactive Protein Albumin Triglycerides Arterial Blood Glucose Arterial Blood Ionized Calcium Urine Creatinine Coronavirus (PCR) Crossmatch 01/25/21 01/26/21 01/26/21 23:41 03:43 05:46 WBC RBC Hgb Hct MCV MCH MCHC RDW Plt Count Lymph % (Auto) Lymph # (Auto) Seg Neutrophils % Seg Neuts % (Manual) Lymphocytes % (Manual) Nucleated RBC % Seg Neutrophils # Seg Neutrophils # Man Lymphocytes # (Manual) Eosinophils # (Manual) INR D-Dimer ABG pH POC ABG pCO2 POC ABG pO2 70.0 L ABG pO2 ABG HCO3 ABG O2 Saturation ABG Base Excess ABG Hemoglobin ABG Oxyhemoglobin 91.9 L ABG Sodium ABG Potassium ABG Chloride 109.0 H ABG Glucose 165 H Oxyhemoglobin Carboxyhemoglobin Sodium Potassium Chloride Carbon Dioxide BUN Creatinine Glucose POC Glucose 132 H 161 H Hemoglobin A1c Lactic Acid Calcium Phosphorus Magnesium Ferritin Total Bilirubin AST ALT Lactate Dehydrogenase C-Reactive Protein Albumin Triglycerides Arterial Blood Glucose 165 H Arterial Blood Ionized Calcium 4.5 L Urine Creatinine Coronavirus (PCR) Crossmatch 01/26/21 01/26/21 01/26/21 05:47 05:47 05:47 WBC RBC Hgb Hct 35.3 L MCV 96 H MCH 33 H MCHC RDW Plt Count Lymph % (Auto) Lymph # (Auto) Seg Neutrophils % Seg Neuts % (Manual) 96.0 H Lymphocytes % (Manual) 2.0 L Nucleated RBC % Seg Neutrophils # Seg Neutrophils # Man Lymphocytes # (Manual) 0.1 L Eosinophils # (Manual) INR D-Dimer > 34705 H ABG pH POC ABG pCO2 POC ABG pO2 ABG pO2 ABG HCO3 ABG O2 Saturation ABG Base Excess ABG Hemoglobin ABG Oxyhemoglobin ABG Sodium ABG Potassium ABG Chloride ABG Glucose Oxyhemoglobin Carboxyhemoglobin Sodium Potassium Chloride Carbon Dioxide BUN 57 H Creatinine 2.2 H Glucose 185 H POC Glucose Hemoglobin A1c Lactic Acid Calcium 8.1 L Phosphorus Magnesium Ferritin Total Bilirubin AST ALT Lactate Dehydrogenase C-Reactive Protein Albumin Triglycerides Arterial Blood Glucose Arterial Blood Ionized Calcium Urine Creatinine Coronavirus (PCR) Crossmatch 01/26/21 01/26/21 01/26/21 05:47 05:47 05:47 WBC RBC Hgb Hct MCV MCH MCHC RDW Plt Count Lymph % (Auto) Lymph # (Auto) Seg Neutrophils % Seg Neuts % (Manual) Lymphocytes % (Manual) Nucleated RBC % Seg Neutrophils # Seg Neutrophils # Man Lymphocytes # (Manual) Eosinophils # (Manual) INR D-Dimer ABG pH POC ABG pCO2 POC ABG pO2 ABG pO2 ABG HCO3 ABG O2 Saturation ABG Base Excess ABG Hemoglobin ABG Oxyhemoglobin ABG Sodium ABG Potassium ABG Chloride ABG Glucose Oxyhemoglobin Carboxyhemoglobin Sodium Potassium Chloride 107.1 H Carbon Dioxide BUN 56 H Creatinine 2.2 H Glucose 188 H POC Glucose Hemoglobin A1c Lactic Acid Calcium 8.0 L Phosphorus Magnesium Ferritin 1178.0 H Total Bilirubin 1.50 H AST ALT Lactate Dehydrogenase 588 H C-Reactive Protein 40.10 H Albumin 2.2 L Triglycerides Arterial Blood Glucose Arterial Blood Ionized Calcium Urine Creatinine Coronavirus (PCR) Crossmatch 01/26/21 01/26/21 01/26/21 11:34 18:17 23:20 WBC RBC Hgb Hct MCV MCH MCHC RDW Plt Count Lymph % (Auto) Lymph # (Auto) Seg Neutrophils % Seg Neuts % (Manual) Lymphocytes % (Manual) Nucleated RBC % Seg Neutrophils # Seg Neutrophils # Man Lymphocytes # (Manual) Eosinophils # (Manual) INR D-Dimer ABG pH POC ABG pCO2 POC ABG pO2 ABG pO2 ABG HCO3 ABG O2 Saturation ABG Base Excess ABG Hemoglobin ABG Oxyhemoglobin ABG Sodium ABG Potassium ABG Chloride ABG Glucose Oxyhemoglobin Carboxyhemoglobin Sodium Potassium Chloride Carbon Dioxide BUN Creatinine Glucose POC Glucose 129 H 205 H 155 H Hemoglobin A1c Lactic Acid Calcium Phosphorus Magnesium Ferritin Total Bilirubin AST ALT Lactate Dehydrogenase C-Reactive Protein Albumin Triglycerides Arterial Blood Glucose Arterial Blood Ionized Calcium Urine Creatinine Coronavirus (PCR) Crossmatch 01/27/21 01/27/2101/27/21 02:45 05:29 05:29 WBC RBC 3.58 L Hgb 11.7 L Hct 34.9 L MCV 97 H MCH 33 H MCHC RDW Plt Count Lymph % (Auto) Lymph # (Auto) Seg Neutrophils % Seg Neuts % (Manual) 88.0 H Lymphocytes % (Manual) 7.0 L Nucleated RBC % Seg Neutrophils # Seg Neutrophils # Man Lymphocytes # (Manual) 0.5 L Eosinophils # (Manual) INR D-Dimer ABG pH 7.319 L POC ABG pCO2 50.7 H POC ABG pO2 63.0 L ABG pO2 ABG HCO3 ABG O2 Saturation ABG Base Excess ABG Hemoglobin ABG Oxyhemoglobin ABG Sodium 145.2 H ABG Potassium 5.1 H ABG Chloride 114.0 H ABG Glucose 178 H Oxyhemoglobin Carboxyhemoglobin Sodium Potassium Chloride Carbon Dioxide BUN Creatinine Glucose POC Glucose Hemoglobin A1c Lactic Acid Calcium Phosphorus Magnesium 4.00 H Ferritin Total Bilirubin AST ALT Lactate Dehydrogenase C-Reactive Protein Albumin Triglycerides Arterial Blood Glucose 178 H Arterial Blood Ionized Calcium Urine Creatinine Coronavirus (PCR) Crossmatch 01/27/21 01/27/21 01/27/21 05:29 05:29 05:31 WBC RBC Hgb Hct MCV MCH MCHC RDW Plt Count Lymph % (Auto) Lymph # (Auto) Seg Neutrophils % Seg Neuts % (Manual) Lymphocytes % (Manual) Nucleated RBC % Seg Neutrophils # Seg Neutrophils # Man Lymphocytes # (Manual) Eosinophils # (Manual) INR D-Dimer ABG pH POC ABG pCO2 POC ABG pO2 ABG pO2 ABG HCO3 ABG O2 Saturation ABG Base Excess ABG Hemoglobin ABG Oxyhemoglobin ABG Sodium ABG Potassium ABG Chloride ABG Glucose Oxyhemoglobin Carboxyhemoglobin Sodium Potassium 5.2 H Chloride 109.6 H Carbon Dioxide BUN 67 H Creatinine 2.8 H Glucose 195 H POC Glucose 176 H Hemoglobin A1c Lactic Acid Calcium 7.9 L Phosphorus Magnesium Ferritin Total Bilirubin AST ALT Lactate Dehydrogenase C-Reactive Protein Albumin Triglycerides 160 H Arterial Blood Glucose Arterial Blood Ionized Calcium Urine Creatinine Coronavirus (PCR) Crossmatch 01/27/21 01/27/21 01/27/21 11:27 18:08 23:30 WBC RBC Hgb Hct MCV MCH MCHC RDW Plt Count Lymph % (Auto) Lymph # (Auto) Seg Neutrophils % Seg Neuts % (Manual) Lymphocytes % (Manual) Nucleated RBC % Seg Neutrophils # Seg Neutrophils # Man Lymphocytes # (Manual) Eosinophils # (Manual) INR D-Dimer ABG pH POC ABG pCO2 POC ABG pO2 ABG pO2 ABG HCO3 ABG O2 Saturation ABG Base Excess ABG Hemoglobin ABG Oxyhemoglobin ABG Sodium ABG Potassium ABG Chloride ABG Glucose Oxyhemoglobin Carboxyhemoglobin Sodium Potassium Chloride Carbon Dioxide BUN Creatinine Glucose POC Glucose 189 H 212 H 175 H Hemoglobin A1c Lactic Acid Calcium Phosphorus Magnesium Ferritin Total Bilirubin AST ALT Lactate Dehydrogenase C-Reactive Protein Albumin Triglycerides Arterial Blood Glucose Arterial Blood Ionized Calcium Urine Creatinine Coronavirus (PCR) Crossmatch 01/28/21 01/28/21 01/28/21 03:58 04:00 04:00 WBC RBC Hgb Hct MCV MCH MCHC RDW Plt Count Lymph % (Auto) Lymph # (Auto) Seg Neutrophils % Seg Neuts % (Manual) Lymphocytes % (Manual) Nucleated RBC % Seg Neutrophils # Seg Neutrophils # Man Lymphocytes # (Manual) Eosinophils # (Manual) INR D-Dimer > 71740 H ABG pH POC ABG pCO2 POC ABG pO2 52.9 L ABG pO2 ABG HCO3 ABG O2 Saturation ABG Base Excess ABG Hemoglobin ABG Oxyhemoglobin 84.1 L ABG Sodium 148.9 H ABG Potassium ABG Chloride 117.0 H ABG Glucose 194 H Oxyhemoglobin Carboxyhemoglobin Sodium Potassium Chloride Carbon Dioxide BUN Creatinine Glucose POC Glucose Hemoglobin A1c Lactic Acid Calcium Phosphorus Magnesium Ferritin Total Bilirubin AST ALT Lactate Dehydrogenase 679 H C-Reactive Protein 17.10 H Albumin Triglycerides Arterial Blood Glucose 194 H Arterial Blood Ionized Calcium Urine Creatinine Coronavirus (PCR) Crossmatch 01/28/21 01/28/21 01/28/21 04:00 05:00 06:00 WBC RBC 3.59 L Hgb 11.6 L Hct 34.8 L MCV 97 H MCH MCHC RDW Plt Count Lymph % (Auto) Lymph # (Auto) Seg Neutrophils % Seg Neuts % (Manual) 96.0 H Lymphocytes % (Manual) 3.0 L Nucleated RBC % Seg Neutrophils # Seg Neutrophils # Man Lymphocytes # (Manual) 0.2 L Eosinophils # (Manual) INR D-Dimer ABG pH POC ABG pCO2 POC ABG pO2 ABG pO2 ABG HCO3 ABG O2 Saturation ABG Base Excess ABG Hemoglobin ABG Oxyhemoglobin ABG Sodium ABG Potassium ABG Chloride ABG Glucose Oxyhemoglobin Carboxyhemoglobin Sodium Potassium Chloride Carbon Dioxide BUN Creatinine Glucose POC Glucose 159 H Hemoglobin A1c Lactic Acid Calcium Phosphorus Magnesium Ferritin 798.0 H Total Bilirubin AST ALT Lactate Dehydrogenase C-Reactive Protein Albumin Triglycerides Arterial Blood Glucose Arterial Blood Ionized Calcium Urine Creatinine Coronavirus (PCR) Crossmatch 01/28/21 01/28/21 01/28/21 06:00 06:00 08:12 WBC RBC Hgb Hct MCV MCH MCHC RDW Plt Count Lymph % (Auto) Lymph # (Auto) Seg Neutrophils % Seg Neuts % (Manual) Lymphocytes % (Manual) Nucleated RBC % Seg Neutrophils # Seg Neutrophils # Man Lymphocytes # (Manual) Eosinophils # (Manual) INR D-Dimer ABG pH POC ABG pCO2 POC ABG pO2 ABG pO2 ABG HCO3 ABG O2 Saturation ABG Base Excess ABG Hemoglobin ABG Oxyhemoglobin ABG Sodium ABG Potassium ABG Chloride ABG Glucose Oxyhemoglobin Carboxyhemoglobin Sodium Potassium Chloride 111.9 H Carbon Dioxide BUN 59 H Creatinine 2.2 H Glucose 189 H POC Glucose 181 H Hemoglobin A1c Lactic Acid Calcium 8.1 L Phosphorus Magnesium 3.20 H Ferritin Total Bilirubin AST ALT Lactate Dehydrogenase C-Reactive Protein Albumin Triglycerides Arterial Blood Glucose Arterial Blood Ionized Calcium Urine Creatinine Coronavirus (PCR) Crossmatch 01/28/21 01/28/21 01/28/21 12:03 16:43 23:51 WBC RBC Hgb Hct MCV MCH MCHC RDW Plt Count Lymph % (Auto) Lymph # (Auto) Seg Neutrophils % Seg Neuts % (Manual) Lymphocytes % (Manual) Nucleated RBC % Seg Neutrophils # Seg Neutrophils # Man Lymphocytes # (Manual) Eosinophils # (Manual) INR D-Dimer ABG pH POC ABG pCO2 POC ABG pO2 ABG pO2 ABG HCO3 ABG O2 Saturation ABG Base Excess ABG Hemoglobin ABG Oxyhemoglobin ABG Sodium ABG Potassium ABG Chloride ABG Glucose Oxyhemoglobin Carboxyhemoglobin Sodium Potassium Chloride Carbon Dioxide BUN Creatinine Glucose POC Glucose 164 H 198 H 196 H Hemoglobin A1c Lactic Acid Calcium Phosphorus Magnesium Ferritin Total Bilirubin AST ALT Lactate Dehydrogenase C-Reactive Protein Albumin Triglycerides Arterial Blood Glucose Arterial Blood Ionized Calcium Urine Creatinine Coronavirus (PCR) Crossmatch 01/29/21 01/29/21 01/29/21 05:00 05:23 06:00 WBC RBC Hgb Hct MCV MCH MCHC RDW Plt Count Lymph % (Auto) Lymph # (Auto) Seg Neutrophils % Seg Neuts % (Manual) Lymphocytes % (Manual) Nucleated RBC % Seg Neutrophils # Seg Neutrophils # Man Lymphocytes # (Manual) Eosinophils # (Manual) INR D-Dimer ABG pH 7.119 L POC ABG pCO2 87.1 H POC ABG pO2 ABG pO2 ABG HCO3 ABG O2 Saturation ABG Base Excess ABG Hemoglobin ABG Oxyhemoglobin ABG Sodium 152.5 H ABG Potassium 5.7 H ABG Chloride 120.0 H ABG Glucose 217 H Oxyhemoglobin Carboxyhemoglobin Sodium 151 H Potassium 5.9 H D Chloride 117.8 H Carbon Dioxide BUN 54 H Creatinine 2.2 H Glucose 208 H POC Glucose 180 H Hemoglobin A1c Lactic Acid Calcium 7.9 L Phosphorus Magnesium Ferritin Total Bilirubin AST ALT Lactate Dehydrogenase C-Reactive Protein Albumin Triglycerides Arterial Blood Glucose 217 H Arterial Blood Ionized Calcium Urine Creatinine Coronavirus (PCR) Crossmatch 01/29/21 01/29/21 01/29/21 12:29 17:28 18:05 WBC RBC Hgb Hct MCV MCH MCHC RDW Plt Count Lymph % (Auto) Lymph # (Auto) Seg Neutrophils % Seg Neuts % (Manual) Lymphocytes % (Manual) Nucleated RBC % Seg Neutrophils # Seg Neutrophils # Man Lymphocytes # (Manual) Eosinophils # (Manual) INR D-Dimer ABG pH POC ABG pCO2 POC ABG pO2 ABG pO2 ABG HCO3 ABG O2 Saturation ABG Base Excess ABG Hemoglobin ABG Oxyhemoglobin ABG Sodium ABG Potassium ABG Chloride ABG Glucose Oxyhemoglobin Carboxyhemoglobin Sodium 151 H Potassium 5.5 H Chloride 118.2 H Carbon Dioxide BUN 52 H Creatinine 2.2 H Glucose 224 H POC Glucose 181 H 203 H Hemoglobin A1c Lactic Acid Calcium 8.0 L Phosphorus Magnesium Ferritin Total Bilirubin AST ALT Lactate Dehydrogenase C-Reactive Protein Albumin Triglycerides Arterial Blood Glucose Arterial Blood Ionized Calcium Urine Creatinine Coronavirus (PCR) Crossmatch 01/29/21 01/29/21 01/29/21 18:13 23:34 Unknown WBC RBC Hgb Hct MCV 101 H MCH MCHC RDW 15.7 H Plt Count Lymph % (Auto) Lymph # (Auto) Seg Neutrophils % Seg Neuts % (Manual) 95.0 H Lymphocytes % (Manual) 3.0 L Nucleated RBC % Seg Neutrophils # Seg Neutrophils # Man 8.0 H Lymphocytes # (Manual) 0.3 L Eosinophils # (Manual) INR D-Dimer ABG pH 7.223 L POC ABG pCO2 64.8 H POC ABG pO2 63.6 L ABG pO2 ABG HCO3 ABG O2 Saturation ABG Base Excess ABG Hemoglobin ABG Oxyhemoglobin 89.4 L ABG Sodium 152.9 H ABG Potassium 5.3 H ABG Chloride 121.0 H ABG Glucose 227 H Oxyhemoglobin Carboxyhemoglobin Sodium Potassium Chloride Carbon Dioxide BUN Creatinine Glucose POC Glucose 198 H Hemoglobin A1c Lactic Acid Calcium Phosphorus Magnesium Ferritin Total Bilirubin AST ALT Lactate Dehydrogenase C-Reactive Protein Albumin Triglycerides Arterial Blood Glucose 227 H Arterial Blood Ionized Calcium Urine Creatinine Coronavirus (PCR) Crossmatch 01/30/21 01/30/21 01/30/21 04:00 04:00 04:00 WBC RBC Hgb Hct MCV MCH MCHC RDW Plt Count Lymph % (Auto) Lymph # (Auto) Seg Neutrophils % Seg Neuts % (Manual) Lymphocytes % (Manual) Nucleated RBC % Seg Neutrophils # Seg Neutrophils # Man Lymphocytes # (Manual) Eosinophils # (Manual) INR D-Dimer > 20211 H ABG pH POC ABG pCO2 POC ABG pO2 ABG pO2 ABG HCO3 ABG O2 Saturation ABG Base Excess ABG Hemoglobin ABG Oxyhemoglobin ABG Sodium ABG Potassium ABG Chloride ABG Glucose Oxyhemoglobin Carboxyhemoglobin Sodium Potassium Chloride Carbon Dioxide BUN Creatinine Glucose 234 H POC Glucose Hemoglobin A1c Lactic Acid Calcium Phosphorus Magnesium Ferritin 763.9 H Total Bilirubin AST ALT Lactate Dehydrogenase 424 H C-Reactive Protein 23.90 H Albumin Triglycerides Arterial Blood Glucose Arterial Blood Ionized Calcium Urine Creatinine Coronavirus (PCR) Crossmatch 01/30/21 01/30/21 01/30/21 04:24 05:00 05:16 WBC RBC 3.57 L Hgb 11.3 L Hct 35.4 L MCV 99 H MCH MCHC RDW 15.6 H Plt Count Lymph % (Auto) Lymph # (Auto) Seg Neutrophils % Seg Neuts % (Manual) 97.0 H Lymphocytes % (Manual) 1.0 L Nucleated RBC % Seg Neutrophils # Seg Neutrophils # Man 8.6 H Lymphocytes # (Manual) 0.1 L Eosinophils # (Manual) INR D-Dimer ABG pH 7.235 L POC ABG pCO2 69.7 H POC ABG pO2 61.0 L ABG pO2 ABG HCO3 ABG O2 Saturation ABG Base Excess ABG Hemoglobin ABG Oxyhemoglobin 89 L ABG Sodium 154.2 H ABG Potassium 5.4 H ABG Chloride 121.0 H ABG Glucose 247 H Oxyhemoglobin Carboxyhemoglobin Sodium Potassium Chloride Carbon Dioxide BUN Creatinine Glucose POC Glucose 238 H Hemoglobin A1c Lactic Acid Calcium Phosphorus Magnesium Ferritin Total Bilirubin AST ALT Lactate Dehydrogenase C-Reactive Protein Albumin Triglycerides Arterial Blood Glucose 247 H Arterial Blood Ionized Calcium Urine Creatinine Coronavirus (PCR) Crossmatch 01/30/21 01/30/21 01/30/21 06:00 11:28 12:00 WBC RBC Hgb Hct MCV MCH MCHC RDW Plt Count Lymph % (Auto) Lymph # (Auto) Seg Neutrophils % Seg Neuts % (Manual) Lymphocytes % (Manual) Nucleated RBC % Seg Neutrophils # Seg Neutrophils # Man Lymphocytes # (Manual) Eosinophils # (Manual) INR D-Dimer ABG pH POC ABG pCO2 POC ABG pO2 ABG pO2 ABG HCO3 ABG O2 Saturation ABG Base Excess ABG Hemoglobin ABG Oxyhemoglobin ABG Sodium ABG Potassium ABG Chloride ABG Glucose Oxyhemoglobin Carboxyhemoglobin Sodium 152 H Potassium 5.3 H Chloride 120.5 H Carbon Dioxide BUN 50 H Creatinine 2.3 H Glucose 239 H POC Glucose 153 H Hemoglobin A1c Lactic Acid Calcium 8.2 L Phosphorus Magnesium 2.60 H Ferritin Total Bilirubin AST ALT Lactate Dehydrogenase C-Reactive Protein Albumin Triglycerides 293 H Arterial Blood Glucose Arterial Blood Ionized Calcium Urine Creatinine 53.0 H Coronavirus (PCR) Crossmatch 01/30/21 01/30/21 01/31/21 18:49 23:06 04:00 WBC RBC Hgb Hct MCV MCH MCHC RDW Plt Count Lymph % (Auto) Lymph # (Auto) Seg Neutrophils % Seg Neuts % (Manual) Lymphocytes % (Manual) Nucleated RBC % Seg Neutrophils # Seg Neutrophils # Man Lymphocytes # (Manual) Eosinophils # (Manual) INR D-Dimer ABG pH POC ABG pCO2 POC ABG pO2 ABG pO2 ABG HCO3 ABG O2 Saturation ABG Base Excess ABG Hemoglobin ABG Oxyhemoglobin ABG Sodium ABG Potassium ABG Chloride ABG Glucose Oxyhemoglobin Carboxyhemoglobin Sodium 156 H Potassium 5.9 H Chloride 122.6 H Carbon Dioxide BUN 61 H Creatinine 3.2 H Glucose 205 H POC Glucose 220 H 192 H Hemoglobin A1c Lactic Acid Calcium 8.0 L Phosphorus Magnesium Ferritin Total Bilirubin AST ALT Lactate Dehydrogenase C-Reactive Protein Albumin Triglycerides Arterial Blood Glucose Arterial Blood Ionized Calcium Urine Creatinine Coronavirus (PCR) Crossmatch 01/31/21 01/31/21 01/31/21 04:40 05:17 11:33 WBC RBC Hgb Hct MCV MCH MCHC RDW Plt Count Lymph % (Auto) Lymph # (Auto) Seg Neutrophils % Seg Neuts % (Manual) Lymphocytes % (Manual) Nucleated RBC % Seg Neutrophils # Seg Neutrophils # Man Lymphocytes # (Manual) Eosinophils # (Manual) INR D-Dimer ABG pH 7.161 L* POC ABG pCO2 POC ABG pO2 ABG pO2 142.2 H ABG HCO3 28.3 H ABG O2 Saturation ABG Base Excess -3.2 L ABG Hemoglobin ABG Oxyhemoglobin ABG Sodium ABG Potassium ABG Chloride ABG Glucose Oxyhemoglobin Carboxyhemoglobin Sodium Potassium Chloride Carbon Dioxide BUN Creatinine Glucose POC Glucose 200 H 167 H Hemoglobin A1c Lactic Acid Calcium Phosphorus Magnesium Ferritin Total Bilirubin AST ALT Lactate Dehydrogenase C-Reactive Protein Albumin Triglycerides Arterial Blood Glucose Arterial Blood Ionized Calcium Urine Creatinine Coronavirus (PCR) Crossmatch 01/31/21 01/31/21 01/31/21 14:00 17:10 23:24 WBC RBC Hgb Hct MCV MCH MCHC RDW Plt Count Lymph % (Auto) Lymph # (Auto) Seg Neutrophils % Seg Neuts % (Manual) Lymphocytes % (Manual) Nucleated RBC % Seg Neutrophils # Seg Neutrophils # Man Lymphocytes # (Manual) Eosinophils # (Manual) INR D-Dimer ABG pH 7.205 L POC ABG pCO2 POC ABG pO2 ABG pO2 90.9 H ABG HCO3 26.5 H ABG O2 Saturation ABG Base Excess -2.7 L ABG Hemoglobin 12.3 L ABG Oxyhemoglobin ABG Sodium ABG Potassium ABG Chloride ABG Glucose Oxyhemoglobin 93.9 L Carboxyhemoglobin Sodium Potassium Chloride Carbon Dioxide BUN Creatinine Glucose POC Glucose 190 H 203 H Hemoglobin A1c Lactic Acid Calcium Phosphorus Magnesium Ferritin Total Bilirubin AST ALT Lactate Dehydrogenase C-Reactive Protein Albumin Triglycerides Arterial Blood Glucose Arterial Blood Ionized Calcium Urine Creatinine Coronavirus (PCR) Crossmatch 02/01/21 02/01/21 02/01/21 05:15 06:22 10:20 WBC RBC Hgb Hct MCV MCH MCHC RDW Plt Count Lymph % (Auto) Lymph # (Auto) Seg Neutrophils % Seg Neuts % (Manual) Lymphocytes % (Manual) Nucleated RBC % Seg Neutrophils # Seg Neutrophils # Man Lymphocytes # (Manual) Eosinophils # (Manual) INR D-Dimer ABG pH 6.920 L* 7.116 L* POC ABG pCO2 POC ABG pO2 ABG pO2 102.9 H 113.1 H ABG HCO3 28.2 H ABG O2 Saturation 92.9 L ABG Base Excess -6.9 L -5.8 L ABG Hemoglobin 11.6 L 9.5 L ABG Oxyhemoglobin ABG Sodium ABG Potassium ABG Chloride ABG Glucose Oxyhemoglobin 90.5 L 94.6 L Carboxyhemoglobin Sodium Potassium Chloride Carbon Dioxide BUN Creatinine Glucose POC Glucose 221 H Hemoglobin A1c Lactic Acid Calcium Phosphorus Magnesium Ferritin Total Bilirubin AST ALT Lactate Dehydrogenase C-Reactive Protein Albumin Triglycerides Arterial Blood Glucose Arterial Blood Ionized Calcium Urine Creatinine Coronavirus (PCR) Crossmatch 02/01/21 02/01/21 02/01/21 11:12 12:35 16:00 WBC RBC Hgb Hct MCV MCH MCHC RDW Plt Count Lymph % (Auto) Lymph # (Auto) Seg Neutrophils % Seg Neuts % (Manual) Lymphocytes % (Manual) Nucleated RBC % Seg Neutrophils # Seg Neutrophils # Man Lymphocytes # (Manual) Eosinophils # (Manual) INR D-Dimer ABG pH 7.155 L* POC ABG pCO2 POC ABG pO2 ABG pO2 94.6 H ABG HCO3 ABG O2 Saturation ABG Base Excess -6.5 L ABG Hemoglobin 13.1 L ABG Oxyhemoglobin ABG Sodium ABG Potassium ABG Chloride ABG Glucose Oxyhemoglobin 93.7 L Carboxyhemoglobin Sodium 155 H Potassium 5.1 H Chloride 120.5 H Carbon Dioxide BUN 90 H Creatinine 6.1 H D Glucose 238 H POC Glucose 207 H Hemoglobin A1c Lactic Acid Calcium 7.4 L Phosphorus Magnesium Ferritin Total Bilirubin AST ALT Lactate Dehydrogenase C-Reactive Protein Albumin Triglycerides Arterial Blood Glucose Arterial Blood Ionized Calcium Urine Creatinine Coronavirus (PCR) Crossmatch 02/01/21 02/01/21 02/02/21 17:10 23:47 04:04 WBC RBC 3.02 L Hgb 9.8 L Hct 30.7 L MCV 102 H MCH MCHC RDW 15.6 H Plt Count Lymph % (Auto) 4.2 L Lymph # (Auto) 0.3 L Seg Neutrophils % Seg Neuts % (Manual) Lymphocytes % (Manual) Nucleated RBC % Seg Neutrophils # Seg Neutrophils # Man Lymphocytes # (Manual) Eosinophils # (Manual) INR D-Dimer ABG pH POC ABG pCO2 POC ABG pO2 ABG pO2 ABG HCO3 ABG O2 Saturation ABG Base Excess ABG Hemoglobin ABG Oxyhemoglobin ABG Sodium ABG Potassium ABG Chloride ABG Glucose Oxyhemoglobin Carboxyhemoglobin Sodium Potassium Chloride Carbon Dioxide BUN Creatinine Glucose POC Glucose 238 H 235 H Hemoglobin A1c Lactic Acid Calcium Phosphorus Magnesium Ferritin Total Bilirubin AST ALT Lactate Dehydrogenase C-Reactive Protein Albumin Triglycerides Arterial Blood Glucose Arterial Blood Ionized Calcium Urine Creatinine Coronavirus (PCR) Crossmatch 02/02/21 02/02/21 02/02/21 05:18 05:35 11:28 WBC RBC Hgb Hct MCV MCH MCHC RDW Plt Count Lymph % (Auto) Lymph # (Auto) Seg Neutrophils % Seg Neuts % (Manual) Lymphocytes % (Manual) Nucleated RBC % Seg Neutrophils # Seg Neutrophils # Man Lymphocytes # (Manual) Eosinophils # (Manual) INR D-Dimer ABG pH 7.195 L* POC ABG pCO2 POC ABG pO2 ABG pO2 72.5 L ABG HCO3 ABG O2 Saturation 91.2 L ABG Base Excess -5.3 L ABG Hemoglobin 6.0 L ABG Oxyhemoglobin ABG Sodium ABG Potassium ABG Chloride ABG Glucose Oxyhemoglobin 89.1 L Carboxyhemoglobin Sodium Potassium Chloride 110.4 H Carbon Dioxide BUN 92 H Creatinine Glucose POC Glucose 239 H Hemoglobin A1c Lactic Acid Calcium Phosphorus Magnesium Ferritin Total Bilirubin AST ALT Lactate Dehydrogenase C-Reactive Protein Albumin Triglycerides Arterial Blood Glucose Arterial Blood Ionized Calcium Urine Creatinine Coronavirus (PCR) Crossmatch 02/02/21 02/02/21 02/02/21 11:53 16:00 18:04 WBC RBC Hgb Hct MCV MCH MCHC RDW Plt Count Lymph % (Auto) Lymph # (Auto) Seg Neutrophils % Seg Neuts % (Manual) Lymphocytes % (Manual) Nucleated RBC % Seg Neutrophils # Seg Neutrophils # Man Lymphocytes # (Manual) Eosinophils # (Manual) INR D-Dimer ABG pH POC ABG pCO2 POC ABG pO2 ABG pO2 ABG HCO3 ABG O2 Saturation ABG Base Excess ABG Hemoglobin ABG Oxyhemoglobin ABG Sodium ABG Potassium ABG Chloride ABG Glucose Oxyhemoglobin Carboxyhemoglobin Sodium Potassium Chloride Carbon Dioxide BUN Creatinine Glucose POC Glucose 248 H 199 H Hemoglobin A1c 6.3 H Lactic Acid Calcium Phosphorus Magnesium Ferritin Total Bilirubin AST ALT Lactate Dehydrogenase C-Reactive Protein Albumin Triglycerides Arterial Blood Glucose Arterial Blood Ionized Calcium Urine Creatinine Coronavirus (PCR) Crossmatch 02/02/21 02/03/21 02/03/21 23:31 03:12 04:10 WBC RBC 3.06 L Hgb 9.7 L Hct 30.4 L MCV 99 H MCH MCHC RDW 15.3 H Plt Count Lymph % (Auto) 6.1 L Lymph # (Auto) 0.5 L Seg Neutrophils % 86.1 H Seg Neuts % (Manual) Lymphocytes % (Manual) Nucleated RBC % Seg Neutrophils # Seg Neutrophils # Man Lymphocytes # (Manual) Eosinophils # (Manual) INR D-Dimer ABG pH 7.199 L POC ABG pCO2 48.3 H POC ABG pO2 68.3 L ABG pO2 ABG HCO3 ABG O2 Saturation ABG Base Excess ABG Hemoglobin 10.2 L ABG Oxyhemoglobin 89.2 L ABG Sodium 155.0 H ABG Potassium 4.6 H ABG Chloride 121.0 H ABG Glucose 166 H Oxyhemoglobin Carboxyhemoglobin 0.3 L Sodium Potassium Chloride Carbon Dioxide BUN Creatinine Glucose POC Glucose 200 H Hemoglobin A1c Lactic Acid Calcium Phosphorus Magnesium Ferritin Total Bilirubin AST ALT Lactate Dehydrogenase C-Reactive Protein Albumin Triglycerides Arterial Blood Glucose 166 H Arterial Blood Ionized Calcium 4.1 L Urine Creatinine Coronavirus (PCR) Crossmatch 02/03/21 02/03/21 02/03/21 04:10 05:34 11:51 WBC RBC Hgb Hct MCV MCH MCHC RDW Plt Count Lymph % (Auto) Lymph # (Auto) Seg Neutrophils % Seg Neuts % (Manual) Lymphocytes % (Manual) Nucleated RBC % Seg Neutrophils # Seg Neutrophils # Man Lymphocytes # (Manual) Eosinophils # (Manual) INR D-Dimer ABG pH POC ABG pCO2 POC ABG pO2 ABG pO2 ABG HCO3 ABG O2 Saturation ABG Base Excess ABG Hemoglobin ABG Oxyhemoglobin ABG Sodium ABG Potassium ABG Chloride ABG Glucose Oxyhemoglobin Carboxyhemoglobin Sodium 154 H D Potassium Chloride 116.7 H Carbon Dioxide 20 L BUN 130 H Creatinine 9.2 H D Glucose 160 H POC Glucose 130 H 154 H Hemoglobin A1c Lactic Acid Calcium 6.7 L Phosphorus 8.60 H Magnesium Ferritin Total Bilirubin AST ALT Lactate Dehydrogenase C-Reactive Protein Albumin Triglycerides Arterial Blood Glucose Arterial Blood Ionized Calcium Urine Creatinine Coronavirus (PCR) Crossmatch 02/03/21 02/03/21 02/04/21 16:49 23:22 03:48 WBC RBC Hgb Hct MCV MCH MCHC RDW Plt Count Lymph % (Auto) Lymph # (Auto) Seg Neutrophils % Seg Neuts % (Manual) Lymphocytes % (Manual) Nucleated RBC % Seg Neutrophils # Seg Neutrophils # Man Lymphocytes # (Manual) Eosinophils # (Manual) INR D-Dimer ABG pH 7.201 L POC ABG pCO2 54.5 H POC ABG pO2 74.0 L ABG pO2 ABG HCO3 ABG O2 Saturation ABG Base Excess ABG Hemoglobin 9.7 L ABG Oxyhemoglobin 91.1 L ABG Sodium 146.2 H ABG Potassium ABG Chloride 114.0 H ABG Glucose 155 H Oxyhemoglobin Carboxyhemoglobin Sodium Potassium Chloride Carbon Dioxide BUN Creatinine Glucose POC Glucose 164 H 152 H Hemoglobin A1c Lactic Acid Calcium Phosphorus Magnesium Ferritin Total Bilirubin AST ALT Lactate Dehydrogenase C-Reactive Protein Albumin Triglycerides Arterial Blood Glucose 155 H Arterial Blood Ionized Calcium 3.9 L Urine Creatinine Coronavirus (PCR) Crossmatch 02/04/21 02/04/21 02/04/21 04:45 04:45 04:45 WBC RBC 2.75 L Hgb 9.1 L Hct 26.9 L MCV 98 H MCH 33 H MCHC RDW Plt Count Lymph % (Auto) 6.8 L Lymph # (Auto) 0.5 L Seg Neutrophils % 87.2 H Seg Neuts % (Manual) Lymphocytes % (Manual) Nucleated RBC % Seg Neutrophils # Seg Neutrophils # Man Lymphocytes # (Manual) Eosinophils # (Manual) INR D-Dimer ABG pH POC ABG pCO2 POC ABG pO2 ABG pO2 ABG HCO3 ABG O2 Saturation ABG Base Excess ABG Hemoglobin ABG Oxyhemoglobin ABG Sodium ABG Potassium ABG Chloride ABG Glucose Oxyhemoglobin Carboxyhemoglobin Sodium 149 H Potassium Chloride 111.5 H Carbon Dioxide BUN 99 H Creatinine 8.5 H Glucose 139 H POC Glucose Hemoglobin A1c Lactic Acid Calcium 6.8 L Phosphorus 8.40 H Magnesium Ferritin Total Bilirubin AST ALT Lactate Dehydrogenase C-Reactive Protein Albumin Triglycerides Arterial Blood Glucose Arterial Blood Ionized Calcium Urine Creatinine Coronavirus (PCR) Crossmatch 02/04/21 02/04/21 02/04/21 06:05 11:44 18:00 WBC RBC Hgb Hct MCV MCH MCHC RDW Plt Count Lymph % (Auto) Lymph # (Auto) Seg Neutrophils % Seg Neuts % (Manual) Lymphocytes % (Manual) Nucleated RBC % Seg Neutrophils # Seg Neutrophils # Man Lymphocytes # (Manual) Eosinophils # (Manual) INR D-Dimer ABG pH POC ABG pCO2 POC ABG pO2 ABG pO2 ABG HCO3 ABG O2 Saturation ABG Base Excess ABG Hemoglobin ABG Oxyhemoglobin ABG Sodium ABG Potassium ABG Chloride ABG Glucose Oxyhemoglobin Carboxyhemoglobin Sodium Potassium Chloride Carbon Dioxide BUN Creatinine Glucose POC Glucose 138 H 129 H 163 H Hemoglobin A1c Lactic Acid Calcium Phosphorus Magnesium Ferritin Total Bilirubin AST ALT Lactate Dehydrogenase C-Reactive Protein Albumin Triglycerides Arterial Blood Glucose Arterial Blood Ionized Calcium Urine Creatinine Coronavirus (PCR) Crossmatch 02/04/21 02/05/21 02/05/21 23:48 01:50 01:50 WBC RBC 2.43 L Hgb 8.3 L Hct 23.6 L MCV 97 H MCH 34 H MCHC 35 H RDW Plt Count 137 L Lymph % (Auto) 8.4 L Lymph # (Auto) 0.6 L Seg Neutrophils % 86.1 H Seg Neuts % (Manual) Lymphocytes % (Manual) Nucleated RBC % Seg Neutrophils # Seg Neutrophils # Man Lymphocytes # (Manual) Eosinophils # (Manual) INR D-Dimer ABG pH POC ABG pCO2 POC ABG pO2 ABG pO2 ABG HCO3 ABG O2 Saturation ABG Base Excess ABG Hemoglobin ABG Oxyhemoglobin ABG Sodium ABG Potassium ABG Chloride ABG Glucose Oxyhemoglobin Carboxyhemoglobin Sodium Potassium Chloride Carbon Dioxide BUN Creatinine Glucose POC Glucose 157 H Hemoglobin A1c Lactic Acid Calcium Phosphorus 5.60 H D Magnesium Ferritin Total Bilirubin AST ALT Lactate Dehydrogenase C-Reactive Protein Albumin Triglycerides Arterial Blood Glucose Arterial Blood Ionized Calcium Urine Creatinine Coronavirus (PCR) Crossmatch 02/05/21 02/05/21 02/05/21 03:44 05:27 09:15 WBC RBC Hgb Hct MCV MCH MCHC RDW Plt Count Lymph % (Auto) Lymph # (Auto) Seg Neutrophils % Seg Neuts % (Manual) Lymphocytes % (Manual) Nucleated RBC % Seg Neutrophils # Seg Neutrophils # Man Lymphocytes # (Manual) Eosinophils # (Manual) INR D-Dimer ABG pH 7.202 L POC ABG pCO2 63.7 H POC ABG pO2 69.0 L ABG pO2 ABG HCO3 ABG O2 Saturation ABG Base Excess ABG Hemoglobin 9.4 L ABG Oxyhemoglobin ABG Sodium ABG Potassium ABG Chloride 108.0 H ABG Glucose 186 H Oxyhemoglobin Carboxyhemoglobin Sodium Potassium Chloride Carbon Dioxide BUN 78 H Creatinine 8.0 H Glucose 163 H POC Glucose 157 H Hemoglobin A1c Lactic Acid Calcium 6.3 L Phosphorus Magnesium Ferritin Total Bilirubin AST ALT Lactate Dehydrogenase C-Reactive Protein Albumin Triglycerides Arterial Blood Glucose 186 H Arterial Blood Ionized Calcium 3.9 L Urine Creatinine Coronavirus (PCR) Crossmatch 02/05/21 02/05/21 02/05/21 11:47 17:39 23:40 WBC RBC Hgb Hct MCV MCH MCHC RDW Plt Count Lymph % (Auto) Lymph # (Auto) Seg Neutrophils % Seg Neuts % (Manual) Lymphocytes % (Manual) Nucleated RBC % Seg Neutrophils # Seg Neutrophils # Man Lymphocytes # (Manual) Eosinophils # (Manual) INR D-Dimer ABG pH 7.273 L POC ABG pCO2 62.1 H POC ABG pO2 72.0 L ABG pO2 ABG HCO3 ABG O2 Saturation ABG Base Excess ABG Hemoglobin 9.1 L ABG Oxyhemoglobin 91.3 L ABG Sodium ABG Potassium 3.1 L ABG Chloride ABG Glucose 125 H Oxyhemoglobin Carboxyhemoglobin Sodium Potassium Chloride Carbon Dioxide BUN Creatinine Glucose POC Glucose 126 H 126 H Hemoglobin A1c Lactic Acid Calcium Phosphorus Magnesium Ferritin Total Bilirubin AST ALT Lactate Dehydrogenase C-Reactive Protein Albumin Triglycerides Arterial Blood Glucose 125 H Arterial Blood Ionized Calcium 4.0 L Urine Creatinine Coronavirus (PCR) Crossmatch 02/06/21 02/06/21 02/06/21 04:30 04:57 09:45 WBC RBC Hgb Hct MCV MCH MCHC RDW Plt Count Lymph % (Auto) Lymph # (Auto) Seg Neutrophils % Seg Neuts % (Manual) Lymphocytes % (Manual) Nucleated RBC % Seg Neutrophils # Seg Neutrophils # Man Lymphocytes # (Manual) Eosinophils # (Manual) INR D-Dimer ABG pH 7.159 L 7.138 L* POC ABG pCO2 76.3 H POC ABG pO2 66.9 L ABG pO2 ABG HCO3 ABG O2 Saturation 93.4 L ABG Base Excess -6.0 L ABG Hemoglobin 11.2 L 11.7 L ABG Oxyhemoglobin 88.2 L ABG Sodium ABG Potassium ABG Chloride ABG Glucose 134 H Oxyhemoglobin 91.2 L Carboxyhemoglobin Sodium Potassium Chloride Carbon Dioxide BUN Creatinine Glucose POC Glucose 124 H Hemoglobin A1c Lactic Acid Calcium Phosphorus Magnesium Ferritin Total Bilirubin AST ALT Lactate Dehydrogenase C-Reactive Protein Albumin Triglycerides Arterial Blood Glucose 134 H Arterial Blood Ionized Calcium 3.9 L Urine Creatinine Coronavirus (PCR) Crossmatch 02/06/21 02/06/21 02/06/21 11:11 17:00 17:00 WBC RBC Hgb Hct MCV MCH MCHC RDW Plt Count Lymph % (Auto) Lymph # (Auto) Seg Neutrophils % Seg Neuts % (Manual) Lymphocytes % (Manual) Nucleated RBC % Seg Neutrophils # Seg Neutrophils # Man Lymphocytes # (Manual) Eosinophils # (Manual) INR D-Dimer ABG pH 7.158 L* POC ABG pCO2 POC ABG pO2 ABG pO2 109.8 H ABG HCO3 28.7 H ABG O2 Saturation ABG Base Excess -2.5 L ABG Hemoglobin ABG Oxyhemoglobin ABG Sodium ABG Potassium ABG Chloride ABG Glucose Oxyhemoglobin 94.5 L Carboxyhemoglobin Sodium Potassium Chloride Carbon Dioxide BUN Creatinine Glucose POC Glucose 120 H Hemoglobin A1c Lactic Acid Calcium Phosphorus Magnesium Ferritin Total Bilirubin AST ALT Lactate Dehydrogenase C-Reactive Protein Albumin Triglycerides 503 H Arterial Blood Glucose Arterial Blood Ionized Calcium Urine Creatinine Coronavirus (PCR) Crossmatch 02/06/21 02/06/21 02/06/21 17:28 20:16 Unknown WBC 13.5 H RBC 2.98 L Hgb 9.3 L Hct 28.6 L MCV 96 H MCH MCHC RDW Plt Count Lymph % (Auto) Lymph # (Auto) Seg Neutrophils % Seg Neuts % (Manual) 87.0 H Lymphocytes % (Manual) 7.0 L Nucleated RBC % Seg Neutrophils # Seg Neutrophils # Man 11.7 H Lymphocytes # (Manual) 0.9 L Eosinophils # (Manual) 0.5 H INR D-Dimer ABG pH POC ABG pCO2 POC ABG pO2 ABG pO2 ABG HCO3 ABG O2 Saturation ABG Base Excess ABG Hemoglobin ABG Oxyhemoglobin ABG Sodium ABG Potassium ABG Chloride ABG Glucose Oxyhemoglobin Carboxyhemoglobin Sodium Potassium Chloride Carbon Dioxide BUN Creatinine Glucose POC Glucose 147 H 164 H Hemoglobin A1c Lactic Acid Calcium Phosphorus Magnesium Ferritin Total Bilirubin AST ALT Lactate Dehydrogenase C-Reactive Protein Albumin Triglycerides Arterial Blood Glucose Arterial Blood Ionized Calcium Urine Creatinine Coronavirus (PCR) Crossmatch 0402/07/21 02/07/21 Unknown : 04:00 WBC 12.0 H RBC 2.61 L Hgb 8.2 L Hct 24.5 L MCV MCH MCHC RDW Plt Count Lymph % (Auto) 8.9 L Lymph # (Auto) 1.1 L Seg Neutrophils % 86.3 H Seg Neuts % (Manual) Lymphocytes % (Manual) Nucleated RBC % Seg Neutrophils # 10.3 H Seg Neutrophils # Man Lymphocytes # (Manual) Eosinophils # (Manual) INR D-Dimer ABG pH POC ABG pCO2 POC ABG pO2 ABG pO2 ABG HCO3 ABG O2 Saturation ABG Base Excess ABG Hemoglobin ABG Oxyhemoglobin ABG Sodium ABG Potassium ABG Chloride ABG Glucose Oxyhemoglobin Carboxyhemoglobin Sodium Potassium 3.5 L Chloride Carbon Dioxide BUN 58 H Creatinine 6.6 H Glucose 107 H POC Glucose 173 H Hemoglobin A1c Lactic Acid Calcium 6.7 L Phosphorus 8.00 H D Magnesium Ferritin Total Bilirubin AST ALT Lactate Dehydrogenase C-Reactive Protein Albumin Triglycerides Arterial Blood Glucose Arterial Blood Ionized Calcium Urine Creatinine Coronavirus (PCR) Crossmatch 02/07/21 02/07/21 02/07/21 04:00 04:45 11:49 WBC RBC Hgb Hct MCV MCH MCHC RDW Plt Count Lymph % (Auto) Lymph # (Auto) Seg Neutrophils % Seg Neuts % (Manual) Lymphocytes % (Manual) Nucleated RBC % Seg Neutrophils # Seg Neutrophils # Man Lymphocytes # (Manual) Eosinophils # (Manual) INR D-Dimer ABG pH 7.287 L POC ABG pCO2 64.8 H POC ABG pO2 74.0 L ABG pO2 ABG HCO3 ABG O2 Saturation ABG Base Excess ABG Hemoglobin 9.1 L ABG Oxyhemoglobin 92.0 L ABG Sodium ABG Potassium 2.8 L ABG Chloride ABG Glucose 226 H Oxyhemoglobin Carboxyhemoglobin Sodium Potassium Chloride Carbon Dioxide BUN Creatinine Glucose POC Glucose 170 H Hemoglobin A1c Lactic Acid Calcium Phosphorus 5.50 H D Magnesium Ferritin Total Bilirubin AST ALT Lactate Dehydrogenase C-Reactive Protein Albumin Triglycerides Arterial Blood Glucose 226 H Arterial Blood Ionized Calcium 3.7 L Urine Creatinine Coronavirus (PCR) Crossmatch 02/07/21 02/07/21 02/07/21 13:48 17:45 23:02 WBC RBC Hgb Hct MCV MCH MCHC RDW Plt Count Lymph % (Auto) Lymph # (Auto) Seg Neutrophils % Seg Neuts % (Manual) Lymphocytes % (Manual) Nucleated RBC % Seg Neutrophils # Seg Neutrophils # Man Lymphocytes # (Manual) Eosinophils # (Manual) INR D-Dimer ABG pH POC ABG pCO2 POC ABG pO2 ABG pO2 ABG HCO3 ABG O2 Saturation ABG Base Excess ABG Hemoglobin ABG Oxyhemoglobin ABG Sodium ABG Potassium ABG Chloride ABG Glucose Oxyhemoglobin Carboxyhemoglobin Sodium 136 L Potassium 2.6 L* D Chloride 95.1 L Carbon Dioxide 33 H D BUN 30 H Creatinine 3.6 H Glucose 184 H POC Glucose 172 H 172 H Hemoglobin A1c Lactic Acid Calcium 6.9 L Phosphorus Magnesium Ferritin Total Bilirubin AST ALT Lactate Dehydrogenase C-Reactive Protein Albumin Triglycerides Arterial Blood Glucose Arterial Blood Ionized Calcium Urine Creatinine Coronavirus (PCR) Crossmatch 02/08/21 02/08/21 02/08/21 05:22 06:00 06:00 WBC RBC 2.21 L Hgb 7.2 L Hct 21.0 L MCV 95 H MCH MCHC RDW Plt Count Lymph % (Auto) Lymph # (Auto) Seg Neutrophils % Seg Neuts % (Manual) 87.0 H Lymphocytes % (Manual) 4.0 L Nucleated RBC % Seg Neutrophils # Seg Neutrophils # Man 8.5 H Lymphocytes # (Manual) 0.4 L Eosinophils # (Manual) INR D-Dimer ABG pH POC ABG pCO2 POC ABG pO2 ABG pO2 ABG HCO3 ABG O2 Saturation ABG Base Excess ABG Hemoglobin ABG Oxyhemoglobin ABG Sodium ABG Potassium ABG Chloride ABG Glucose Oxyhemoglobin Carboxyhemoglobin Sodium 136 L Potassium 2.4 L* Chloride 93.1 L Carbon Dioxide 36 H BUN 43 H Creatinine 5.4 H Glucose 167 H POC Glucose 162 H Hemoglobin A1c Lactic Acid Calcium 6.3 L Phosphorus Magnesium Ferritin Total Bilirubin AST ALT Lactate Dehydrogenase C-Reactive Protein Albumin Triglycerides Arterial Blood Glucose Arterial Blood Ionized Calcium Urine Creatinine Coronavirus (PCR) Crossmatch 02/08/21 02/08/21 02/08/21 11:44 17:53 18:56 WBC RBC Hgb Hct MCV MCH MCHC RDW Plt Count Lymph % (Auto) Lymph # (Auto) Seg Neutrophils % Seg Neuts % (Manual) Lymphocytes % (Manual) Nucleated RBC % Seg Neutrophils # Seg Neutrophils # Man Lymphocytes # (Manual) Eosinophils # (Manual) INR D-Dimer ABG pH POC ABG pCO2 POC ABG pO2 ABG pO2 ABG HCO3 ABG O2 Saturation ABG Base Excess ABG Hemoglobin ABG Oxyhemoglobin ABG Sodium ABG Potassium ABG Chloride ABG Glucose Oxyhemoglobin Carboxyhemoglobin Sodium Potassium 2.9 L* D Chloride Carbon Dioxide BUN Creatinine Glucose POC Glucose 164 H 154 H Hemoglobin A1c Lactic Acid Calcium Phosphorus Magnesium Ferritin Total Bilirubin AST ALT Lactate Dehydrogenase C-Reactive Protein Albumin Triglycerides Arterial Blood Glucose Arterial Blood Ionized Calcium Urine Creatinine Coronavirus (PCR) Crossmatch 02/08/21 02/08/21 02/09/21 23:24 23:58 03:21 WBC RBC Hgb Hct MCV MCH MCHC RDW Plt Count Lymph % (Auto) Lymph # (Auto) Seg Neutrophils % Seg Neuts % (Manual) Lymphocytes % (Manual) Nucleated RBC % Seg Neutrophils # Seg Neutrophils # Man Lymphocytes # (Manual) Eosinophils # (Manual) INR D-Dimer ABG pH 7.319 L POC ABG pCO2 63.3 H 68.3 H POC ABG pO2 71.2 L 76.5 L ABG pO2 ABG HCO3 ABG O2 Saturation ABG Base Excess ABG Hemoglobin 8.2 L 7.0 L ABG Oxyhemoglobin 91.8 L 92.2 L ABG Sodium 134.6 L 133.0 L ABG Potassium 2.3 L 3.1 L ABG Chloride 96.0 L 95.0 L ABG Glucose 184 H 154 H Oxyhemoglobin Carboxyhemoglobin Sodium Potassium Chloride Carbon Dioxide BUN Creatinine Glucose POC Glucose 152 H Hemoglobin A1c Lactic Acid Calcium Phosphorus Magnesium Ferritin Total Bilirubin AST ALT Lactate Dehydrogenase C-Reactive Protein Albumin Triglycerides Arterial Blood Glucose 184 H 154 H Arterial Blood Ionized Calcium 3.6 L 3.5 L Urine Creatinine Coronavirus (PCR) Crossmatch 02/09/21 02/09/21 02/09/21 05:10 05:10 06:04 WBC RBC 2.14 L Hgb 7.0 L Hct 20.5 L MCV 96 H MCH 33 H MCHC RDW Plt Count Lymph % (Auto) Lymph # (Auto) Seg Neutrophils % Seg Neuts % (Manual) 82.0 H Lymphocytes % (Manual) 9.0 L Nucleated RBC % 1.0 H Seg Neutrophils # Seg Neutrophils # Man 8.9 H Lymphocytes # (Manual) 1.0 L Eosinophils # (Manual) INR D-Dimer ABG pH POC ABG pCO2 POC ABG pO2 ABG pO2 ABG HCO3 ABG O2 Saturation ABG Base Excess ABG Hemoglobin ABG Oxyhemoglobin ABG Sodium ABG Potassium ABG Chloride ABG Glucose Oxyhemoglobin Carboxyhemoglobin Sodium 135 L Potassium 3.2 L Chloride 91.0 L Carbon Dioxide 32 H BUN 54 H Creatinine 6.6 H Glucose 163 H POC Glucose 149 H Hemoglobin A1c Lactic Acid Calcium 6.2 L Phosphorus Magnesium Ferritin Total Bilirubin AST ALT Lactate Dehydrogenase C-Reactive Protein Albumin Triglycerides Arterial Blood Glucose Arterial Blood Ionized Calcium Urine Creatinine Coronavirus (PCR) Crossmatch 02/09/21 02/09/21 02/09/21 12:02 13:32 13:40 WBC RBC Hgb Hct MCV MCH MCHC RDW Plt Count Lymph % (Auto) Lymph # (Auto) Seg Neutrophils % Seg Neuts % (Manual) Lymphocytes % (Manual) Nucleated RBC % Seg Neutrophils # Seg Neutrophils # Man Lymphocytes # (Manual) Eosinophils # (Manual) INR D-Dimer ABG pH POC ABG pCO2 POC ABG pO2 ABG pO2 ABG HCO3 ABG O2 Saturation ABG Base Excess ABG Hemoglobin ABG Oxyhemoglobin ABG Sodium ABG Potassium ABG Chloride ABG Glucose Oxyhemoglobin Carboxyhemoglobin Sodium Potassium Chloride Carbon Dioxide BUN Creatinine Glucose POC Glucose 147 H Hemoglobin A1c Lactic Acid Calcium Phosphorus Magnesium Ferritin Total Bilirubin AST ALT Lactate Dehydrogenase C-Reactive Protein Albumin Triglycerides 250 H Arterial Blood Glucose Arterial Blood Ionized Calcium Urine Creatinine Coronavirus (PCR) Crossmatch See Detail 02/09/21 02/09/21 02/10/21 18:06 23:42 04:00 WBC RBC Hgb Hct MCV MCH MCHC RDW Plt Count Lymph % (Auto) Lymph # (Auto) Seg Neutrophils % Seg Neuts % (Manual) Lymphocytes % (Manual) Nucleated RBC % Seg Neutrophils # Seg Neutrophils # Man Lymphocytes # (Manual) Eosinophils # (Manual) INR D-Dimer ABG pH POC ABG pCO2 65.8 H POC ABG pO2 68.0 L ABG pO2 ABG HCO3 ABG O2 Saturation ABG Base Excess ABG Hemoglobin 8.3 L ABG Oxyhemoglobin ABG Sodium 132.4 L ABG Potassium 2.9 L ABG Chloride 92.0 L ABG Glucose 174 H Oxyhemoglobin Carboxyhemoglobin Sodium Potassium Chloride Carbon Dioxide BUN Creatinine Glucose POC Glucose 152 H 147 H Hemoglobin A1c Lactic Acid Calcium Phosphorus Magnesium Ferritin Total Bilirubin AST ALT Lactate Dehydrogenase C-Reactive Protein Albumin Triglycerides Arterial Blood Glucose 174 H Arterial Blood Ionized Calcium 3.4 L Urine Creatinine Coronavirus (PCR) Crossmatch 02/10/21 02/10/21 02/10/21 05:32 11:29 14:08 WBC 12.5 H RBC 2.14 L Hgb 6.6 L Hct 20.2 L MCV MCH MCHC RDW Plt Count Lymph % (Auto) Lymph # (Auto) Seg Neutrophils % Seg Neuts % (Manual) Lymphocytes % (Manual) Nucleated RBC % Seg Neutrophils # Seg Neutrophils # Man Lymphocytes # (Manual) Eosinophils # (Manual) INR D-Dimer ABG pH POC ABG pCO2 POC ABG pO2 ABG pO2 ABG HCO3 ABG O2 Saturation ABG Base Excess ABG Hemoglobin ABG Oxyhemoglobin ABG Sodium ABG Potassium ABG Chloride ABG Glucose Oxyhemoglobin Carboxyhemoglobin Sodium Potassium Chloride Carbon Dioxide BUN Creatinine Glucose POC Glucose 167 H 147 H Hemoglobin A1c Lactic Acid Calcium Phosphorus Magnesium Ferritin Total Bilirubin AST ALT Lactate Dehydrogenase C-Reactive Protein Albumin Triglycerides Arterial Blood Glucose Arterial Blood Ionized Calcium Urine Creatinine Coronavirus (PCR) Crossmatch 02/10/21 02/10/21 02/10/21 14:08 18:11 22:32 WBC RBC Hgb 6.4 L Hct 19.1 L* MCV MCH MCHC RDW Plt Count Lymph % (Auto) Lymph # (Auto) Seg Neutrophils % Seg Neuts % (Manual) Lymphocytes % (Manual) Nucleated RBC % Seg Neutrophils # Seg Neutrophils # Man Lymphocytes # (Manual) Eosinophils # (Manual) INR D-Dimer ABG pH POC ABG pCO2 POC ABG pO2 ABG pO2 ABG HCO3 ABG O2 Saturation ABG Base Excess ABG Hemoglobin ABG Oxyhemoglobin ABG Sodium ABG Potassium ABG Chloride ABG Glucose Oxyhemoglobin Carboxyhemoglobin Sodium 136 L Potassium 2.9 L* Chloride 90.2 L Carbon Dioxide 33 H BUN 42 H Creatinine 7.5 H Glucose 155 H POC Glucose 173 H Hemoglobin A1c Lactic Acid Calcium 6.1 L Phosphorus Magnesium Ferritin Total Bilirubin AST ALT Lactate Dehydrogenase C-Reactive Protein Albumin Triglycerides Arterial Blood Glucose Arterial Blood Ionized Calcium Urine Creatinine Coronavirus (PCR) Crossmatch 02/11/21 02/11/21 02/11/21 00:28 04:05 04:30 WBC RBC Hgb Hct MCV MCH MCHC RDW Plt Count Lymph % (Auto) Lymph # (Auto) Seg Neutrophils % Seg Neuts % (Manual) Lymphocytes % (Manual) Nucleated RBC % Seg Neutrophils # Seg Neutrophils # Man Lymphocytes # (Manual) Eosinophils # (Manual) INR D-Dimer ABG pH 7.307 L POC ABG pCO2 72.2 H POC ABG pO2 72.3 L ABG pO2 ABG HCO3 ABG O2 Saturation ABG Base Excess ABG Hemoglobin 8.2 L ABG Oxyhemoglobin ABG Sodium 132.3 L ABG Potassium 3.2 L ABG Chloride 91.0 L ABG Glucose 197 H Oxyhemoglobin Carboxyhemoglobin Sodium 135 L Potassium 3.3 L Chloride 87.1 L Carbon Dioxide 36 H BUN 71 H Creatinine 7.9 H Glucose 263 H POC Glucose 192 H Hemoglobin A1c Lactic Acid Calcium 6.2 L Phosphorus Magnesium Ferritin Total Bilirubin AST ALT Lactate Dehydrogenase C-Reactive Protein Albumin Triglycerides Arterial Blood Glucose 197 H Arterial Blood Ionized Calcium 3.3 L Urine Creatinine Coronavirus (PCR) Crossmatch 02/11/21 02/11/21 02/11/21 04:30 05:47 08:27 WBC RBC 2.22 L Hgb 7.2 L Hct 21.0 L MCV MCH MCHC RDW Plt Count Lymph % (Auto) 8.7 L Lymph # (Auto) 0.9 L Seg Neutrophils % 85.5 H Seg Neuts % (Manual) Lymphocytes % (Manual) Nucleated RBC % Seg Neutrophils # 9.2 H Seg Neutrophils # Man Lymphocytes # (Manual) Eosinophils # (Manual) INR 1.17 H D-Dimer 1930.92 H ABG pH POC ABG pCO2 POC ABG pO2 ABG pO2 ABG HCO3 ABG O2 Saturation ABG Base Excess ABG Hemoglobin ABG Oxyhemoglobin ABG Sodium ABG Potassium ABG Chloride ABG Glucose Oxyhemoglobin Carboxyhemoglobin Sodium Potassium Chloride Carbon Dioxide BUN Creatinine Glucose POC Glucose 189 H Hemoglobin A1c Lactic Acid Calcium Phosphorus Magnesium Ferritin Total Bilirubin AST ALT Lactate Dehydrogenase C-Reactive Protein Albumin Triglycerides Arterial Blood Glucose Arterial Blood Ionized Calcium Urine Creatinine Coronavirus (PCR) Crossmatch 02/11/21 02/11/21 02/11/21 09:00 09:00 13:18 WBC RBC Hgb Hct MCV MCH MCHC RDW Plt Count Lymph % (Auto) Lymph # (Auto) Seg Neutrophils % Seg Neuts % (Manual) Lymphocytes % (Manual) Nucleated RBC % Seg Neutrophils # Seg Neutrophils # Man Lymphocytes # (Manual) Eosinophils # (Manual) INR D-Dimer ABG pH POC ABG pCO2 POC ABG pO2 ABG pO2 ABG HCO3 ABG O2 Saturation ABG Base Excess ABG Hemoglobin ABG Oxyhemoglobin ABG Sodium ABG Potassium ABG Chloride ABG Glucose Oxyhemoglobin Carboxyhemoglobin Sodium Potassium Chloride Carbon Dioxide BUN Creatinine Glucose 126 H POC Glucose 160 H Hemoglobin A1c Lactic Acid Calcium Phosphorus Magnesium Ferritin 1253.0 H Total Bilirubin AST ALT Lactate Dehydrogenase 649 H C-Reactive Protein 12.60 H Albumin Triglycerides Arterial Blood Glucose Arterial Blood Ionized Calcium Urine Creatinine Coronavirus (PCR) Crossmatch 02/11/21 02/11/21 02/11/21 14:30 16:59 22:34 WBC RBC Hgb 7.1 L 6.7 L Hct 20.5 L 19.9 L* MCV MCH MCHC RDW Plt Count Lymph % (Auto) Lymph # (Auto) Seg Neutrophils % Seg Neuts % (Manual) Lymphocytes % (Manual) Nucleated RBC % Seg Neutrophils # Seg Neutrophils # Man Lymphocytes # (Manual) Eosinophils # (Manual) INR D-Dimer ABG pH POC ABG pCO2 POC ABG pO2 ABG pO2 ABG HCO3 ABG O2 Saturation ABG Base Excess ABG Hemoglobin ABG Oxyhemoglobin ABG Sodium ABG Potassium ABG Chloride ABG Glucose Oxyhemoglobin Carboxyhemoglobin Sodium Potassium Chloride Carbon Dioxide BUN Creatinine Glucose POC Glucose 151 H Hemoglobin A1c Lactic Acid Calcium Phosphorus Magnesium Ferritin Total Bilirubin AST ALT Lactate Dehydrogenase C-Reactive Protein Albumin Triglycerides Arterial Blood Glucose Arterial Blood Ionized Calcium Urine Creatinine Coronavirus (PCR) Crossmatch 02/11/21 02/12/21 02/12/21 23:42 04:41 05:19 WBC RBC Hgb Hct MCV MCH MCHC RDW Plt Count Lymph % (Auto) Lymph # (Auto) Seg Neutrophils % Seg Neuts % (Manual) Lymphocytes % (Manual) Nucleated RBC % Seg Neutrophils # Seg Neutrophils # Man Lymphocytes # (Manual) Eosinophils # (Manual) INR D-Dimer ABG pH POC ABG pCO2 POC ABG pO2 ABG pO2 69.0 L ABG HCO3 32.5 H ABG O2 Saturation ABG Base Excess 7.7 H ABG Hemoglobin 5.1 L ABG Oxyhemoglobin ABG Sodium ABG Potassium ABG Chloride ABG Glucose Oxyhemoglobin 94.7 L Carboxyhemoglobin Sodium Potassium Chloride Carbon Dioxide BUN Creatinine Glucose POC Glucose 165 H 153 H Hemoglobin A1c Lactic Acid Calcium Phosphorus Magnesium Ferritin Total Bilirubin AST ALT Lactate Dehydrogenase C-Reactive Protein Albumin Triglycerides Arterial Blood Glucose Arterial Blood Ionized Calcium Urine Creatinine Coronavirus (PCR) Crossmatch 02/12/21 02/12/21 02/12/21 06:35 06:35 08:40 WBC RBC 2.21 L Hgb 7.2 L Hct 20.7 L MCV MCH 33 H MCHC 35 H RDW Plt Count Lymph % (Auto) Lymph # (Auto) Seg Neutrophils % Seg Neuts % (Manual) Lymphocytes % (Manual) Nucleated RBC % Seg Neutrophils # Seg Neutrophils # Man Lymphocytes # (Manual) Eosinophils # (Manual) INR D-Dimer ABG pH POC ABG pCO2 POC ABG pO2 ABG pO2 ABG HCO3 ABG O2 Saturation ABG Base Excess ABG Hemoglobin ABG Oxyhemoglobin ABG Sodium ABG Potassium ABG Chloride ABG Glucose Oxyhemoglobin Carboxyhemoglobin Sodium 135 L Potassium 3.4 L Chloride 91.8 L Carbon Dioxide 36 H BUN 57 H Creatinine 6.8 H Glucose 163 H POC Glucose Hemoglobin A1c Lactic Acid Calcium 7.0 L Phosphorus Magnesium 1.60 L Ferritin Total Bilirubin AST ALT Lactate Dehydrogenase C-Reactive Protein Albumin Triglycerides Arterial Blood Glucose Arterial Blood Ionized Calcium Urine Creatinine Coronavirus (PCR) Crossmatch 02/12/21 02/12/21 02/12/21 10:45 12:04 17:19 WBC RBC Hgb Hct MCV MCH MCHC RDW Plt Count Lymph % (Auto) Lymph # (Auto) Seg Neutrophils % Seg Neuts % (Manual) Lymphocytes % (Manual) Nucleated RBC % Seg Neutrophils # Seg Neutrophils # Man Lymphocytes # (Manual) Eosinophils # (Manual) INR D-Dimer ABG pH POC ABG pCO2 POC ABG pO2 ABG pO2 ABG HCO3 ABG O2 Saturation ABG Base Excess ABG Hemoglobin ABG Oxyhemoglobin ABG Sodium ABG Potassium ABG Chloride ABG Glucose Oxyhemoglobin Carboxyhemoglobin Sodium Potassium Chloride Carbon Dioxide BUN Creatinine Glucose POC Glucose 165 H 165 H Hemoglobin A1c Lactic Acid Calcium Phosphorus Magnesium Ferritin Total Bilirubin AST ALT Lactate Dehydrogenase C-Reactive Protein Albumin Triglycerides 182 H Arterial Blood Glucose Arterial Blood Ionized Calcium Urine Creatinine Coronavirus (PCR) Crossmatch 02/12/21 02/13/21 02/13/21 23:18 05:00 05:36 WBC RBC Hgb Hct MCV MCH MCHC RDW Plt Count Lymph % (Auto) Lymph # (Auto) Seg Neutrophils % Seg Neuts % (Manual) Lymphocytes % (Manual) Nucleated RBC % Seg Neutrophils # Seg Neutrophils # Man Lymphocytes # (Manual) Eosinophils # (Manual) INR D-Dimer ABG pH POC ABG pCO2 60.8 H POC ABG pO2 76.4 L ABG pO2 ABG HCO3 ABG O2 Saturation ABG Base Excess ABG Hemoglobin 7.4 L ABG Oxyhemoglobin ABG Sodium 133.2 L ABG Potassium 3.3 L ABG Chloride 96.0 L ABG Glucose 168 H Oxyhemoglobin Carboxyhemoglobin Sodium Potassium Chloride Carbon Dioxide BUN Creatinine Glucose POC Glucose 163 H 151 H Hemoglobin A1c Lactic Acid Calcium Phosphorus Magnesium Ferritin Total Bilirubin AST ALT Lactate Dehydrogenase C-Reactive Protein Albumin Triglycerides Arterial Blood Glucose 168 H Arterial Blood Ionized Calcium 4.3 L Urine Creatinine Coronavirus (PCR) Crossmatch 02/13/21 02/13/21 02/13/21 06:40 06:40 06:40 WBC RBC 2.19 L Hgb 7.0 L Hct 20.8 L MCV 95 H MCH MCHC RDW Plt Count Lymph % (Auto) Lymph # (Auto) Seg Neutrophils % Seg Neuts % (Manual) Lymphocytes % (Manual) Nucleated RBC % Seg Neutrophils # Seg Neutrophils # Man Lymphocytes # (Manual) Eosinophils # (Manual) INR D-Dimer ABG pH POC ABG pCO2 POC ABG pO2 ABG pO2 ABG HCO3 ABG O2 Saturation ABG Base Excess ABG Hemoglobin ABG Oxyhemoglobin ABG Sodium ABG Potassium ABG Chloride ABG Glucose Oxyhemoglobin Carboxyhemoglobin Sodium 135 L Potassium 3.4 L Chloride 93.0 L Carbon Dioxide 32 H BUN 46 H Creatinine 5.8 H Glucose 148 H POC Glucose Hemoglobin A1c Lactic Acid Calcium 7.9 L Phosphorus Magnesium Ferritin Total Bilirubin AST ALT Lactate Dehydrogenase C-Reactive Protein 16.80 H Albumin Triglycerides Arterial Blood Glucose Arterial Blood Ionized Calcium Urine Creatinine Coronavirus (PCR) Crossmatch 02/13/21 02/13/21 02/13/21 06:40 07:38 07:38 WBC RBC Hgb Hct MCV MCH MCHC RDW Plt Count Lymph % (Auto) Lymph # (Auto) Seg Neutrophils % Seg Neuts % (Manual) Lymphocytes % (Manual) Nucleated RBC % Seg Neutrophils # Seg Neutrophils # Man Lymphocytes # (Manual) Eosinophils # (Manual) INR D-Dimer 1722.16 H ABG pH POC ABG pCO2 POC ABG pO2 ABG pO2 ABG HCO3 ABG O2 Saturation ABG Base Excess ABG Hemoglobin ABG Oxyhemoglobin ABG Sodium ABG Potassium ABG Chloride ABG Glucose Oxyhemoglobin Carboxyhemoglobin Sodium Potassium Chloride Carbon Dioxide BUN Creatinine Glucose POC Glucose Hemoglobin A1c Lactic Acid Calcium Phosphorus Magnesium 1.60 L Ferritin 976.5 H Total Bilirubin AST ALT Lactate Dehydrogenase C-Reactive Protein Albumin Triglycerides Arterial Blood Glucose Arterial Blood Ionized Calcium Urine Creatinine Coronavirus (PCR) Crossmatch 02/13/21 02/13/21 02/13/21 12:24 16:57 23:32 WBC RBC Hgb Hct MCV MCH MCHC RDW Plt Count Lymph % (Auto) Lymph # (Auto) Seg Neutrophils % Seg Neuts % (Manual) Lymphocytes % (Manual) Nucleated RBC % Seg Neutrophils # Seg Neutrophils # Man Lymphocytes # (Manual) Eosinophils # (Manual) INR D-Dimer ABG pH POC ABG pCO2 POC ABG pO2 ABG pO2 ABG HCO3 ABG O2 Saturation ABG Base Excess ABG Hemoglobin ABG Oxyhemoglobin ABG Sodium ABG Potassium ABG Chloride ABG Glucose Oxyhemoglobin Carboxyhemoglobin Sodium Potassium Chloride Carbon Dioxide BUN Creatinine Glucose POC Glucose 141 H 156 H 161 H Hemoglobin A1c Lactic Acid Calcium Phosphorus Magnesium Ferritin Total Bilirubin AST ALT Lactate Dehydrogenase C-Reactive Protein Albumin Triglycerides Arterial Blood Glucose Arterial Blood Ionized Calcium Urine Creatinine Coronavirus (PCR) Crossmatch 02/14/21 02/14/21 02/14/21 04:00 05:41 11:00 WBC RBC 2.14 L Hgb 6.9 L Hct 20.7 L MCV 97 H MCH 33 H MCHC RDW Plt Count Lymph % (Auto) Lymph # (Auto) Seg Neutrophils % Seg Neuts % (Manual) Lymphocytes % (Manual) Nucleated RBC % Seg Neutrophils # Seg Neutrophils # Man Lymphocytes # (Manual) Eosinophils # (Manual) INR D-Dimer ABG pH POC ABG pCO2 POC ABG pO2 ABG pO2 ABG HCO3 ABG O2 Saturation ABG Base Excess ABG Hemoglobin ABG Oxyhemoglobin ABG Sodium ABG Potassium ABG Chloride ABG Glucose Oxyhemoglobin Carboxyhemoglobin Sodium Potassium Chloride Carbon Dioxide BUN Creatinine Glucose POC Glucose 143 H Hemoglobin A1c Lactic Acid Calcium Phosphorus Magnesium Ferritin Total Bilirubin AST ALT Lactate Dehydrogenase C-Reactive Protein Albumin Triglycerides Arterial Blood Glucose Arterial Blood Ionized Calcium Urine Creatinine Coronavirus (PCR) Crossmatch See Detail 02/14/21 02/14/21 02/14/21 11:51 18:08 23:41 WBC RBC Hgb Hct MCV MCH MCHC RDW Plt Count Lymph % (Auto) Lymph # (Auto) Seg Neutrophils % Seg Neuts % (Manual) Lymphocytes % (Manual) Nucleated RBC % Seg Neutrophils # Seg Neutrophils # Man Lymphocytes # (Manual) Eosinophils # (Manual) INR D-Dimer ABG pH POC ABG pCO2 POC ABG pO2 ABG pO2 ABG HCO3 ABG O2 Saturation ABG Base Excess ABG Hemoglobin ABG Oxyhemoglobin ABG Sodium ABG Potassium ABG Chloride ABG Glucose Oxyhemoglobin Carboxyhemoglobin Sodium Potassium Chloride Carbon Dioxide BUN Creatinine Glucose POC Glucose 113 H 123 H 120 H Hemoglobin A1c Lactic Acid Calcium Phosphorus Magnesium Ferritin Total Bilirubin AST ALT Lactate Dehydrogenase C-Reactive Protein Albumin Triglycerides Arterial Blood Glucose Arterial Blood Ionized Calcium Urine Creatinine Coronavirus (PCR) Crossmatch 02/14/21 02/15/21 02/15/21 Unknown 05:00 05:00 WBC RBC Hgb Hct MCV MCH MCHC RDW Plt Count Lymph % (Auto) Lymph # (Auto) Seg Neutrophils % Seg Neuts % (Manual) Lymphocytes % (Manual) Nucleated RBC % Seg Neutrophils # Seg Neutrophils # Man Lymphocytes # (Manual) Eosinophils # (Manual) INR D-Dimer ABG pH POC ABG pCO2 53.4 H POC ABG pO2 61.8 L ABG pO2 ABG HCO3 ABG O2 Saturation ABG Base Excess ABG Hemoglobin 7.7 L ABG Oxyhemoglobin 88.8 L ABG Sodium ABG Potassium ABG Chloride ABG Glucose 143 H Oxyhemoglobin Carboxyhemoglobin 1.6 H Sodium Potassium Chloride 96.9 L Carbon Dioxide 33 H 31 H BUN 40 H 38 H Creatinine 5.2 H 4.8 H Glucose 152 H 132 H POC Glucose Hemoglobin A1c Lactic Acid Calcium 7.9 L Phosphorus Magnesium Ferritin Total Bilirubin AST ALT Lactate Dehydrogenase C-Reactive Protein Albumin Triglycerides Arterial Blood Glucose 143 H Arterial Blood Ionized Calcium Urine Creatinine Coronavirus (PCR) Crossmatch 02/15/21 02/15/21 02/15/21 05:00 05:27 12:05 WBC RBC 2.30 L Hgb 7.1 L Hct 22.1 L MCV 96 H MCH MCHC RDW 15.7 H Plt Count Lymph % (Auto) 11.0 L Lymph # (Auto) 1.1 L Seg Neutrophils % 83.0 H Seg Neuts % (Manual) Lymphocytes % (Manual) Nucleated RBC % Seg Neutrophils # 8.6 H Seg Neutrophils # Man Lymphocytes # (Manual) Eosinophils # (Manual) INR D-Dimer ABG pH POC ABG pCO2 POC ABG pO2 ABG pO2 ABG HCO3 ABG O2 Saturation ABG Base Excess ABG Hemoglobin ABG Oxyhemoglobin ABG Sodium ABG Potassium ABG Chloride ABG Glucose Oxyhemoglobin Carboxyhemoglobin Sodium Potassium Chloride Carbon Dioxide BUN Creatinine Glucose POC Glucose 133 H 123 H Hemoglobin A1c Lactic Acid Calcium Phosphorus Magnesium Ferritin Total Bilirubin AST ALT Lactate Dehydrogenase C-Reactive Protein Albumin Triglycerides Arterial Blood Glucose Arterial Blood Ionized Calcium Urine Creatinine Coronavirus (PCR) Crossmatch 02/15/21 02/15/21 02/16/21 17:08 23:52 03:44 WBC RBC Hgb Hct MCV MCH MCHC RDW Plt Count Lymph % (Auto) Lymph # (Auto) Seg Neutrophils % Seg Neuts % (Manual) Lymphocytes % (Manual) Nucleated RBC % Seg Neutrophils # Seg Neutrophils # Man Lymphocytes # (Manual) Eosinophils # (Manual) INR D-Dimer ABG pH 7.307 L POC ABG pCO2 59.5 H POC ABG pO2 63.2 L ABG pO2 ABG HCO3 ABG O2 Saturation ABG Base Excess ABG Hemoglobin 9.3 L ABG Oxyhemoglobin ABG Sodium ABG Potassium ABG Chloride ABG Glucose 148 H Oxyhemoglobin Carboxyhemoglobin Sodium Potassium Chloride Carbon Dioxide BUN Creatinine Glucose POC Glucose 129 H 136 H Hemoglobin A1c Lactic Acid Calcium Phosphorus Magnesium Ferritin Total Bilirubin AST ALT Lactate Dehydrogenase C-Reactive Protein Albumin Triglycerides Arterial Blood Glucose 148 H Arterial Blood Ionized Calcium Urine Creatinine Coronavirus (PCR) Crossmatch 02/16/21 02/16/21 02/16/21 05:26 06:00 12:14 WBC RBC Hgb Hct MCV MCH MCHC RDW Plt Count Lymph % (Auto) Lymph # (Auto) Seg Neutrophils % Seg Neuts % (Manual) Lymphocytes % (Manual) Nucleated RBC % Seg Neutrophils # Seg Neutrophils # Man Lymphocytes # (Manual) Eosinophils # (Manual) INR D-Dimer ABG pH POC ABG pCO2 POC ABG pO2 ABG pO2 ABG HCO3 ABG O2 Saturation ABG Base Excess ABG Hemoglobin ABG Oxyhemoglobin ABG Sodium ABG Potassium ABG Chloride ABG Glucose Oxyhemoglobin Carboxyhemoglobin Sodium Potassium Chloride Carbon Dioxide BUN 52 H Creatinine 6.0 H Glucose 138 H POC Glucose 135 H 128 H Hemoglobin A1c Lactic Acid Calcium Phosphorus Magnesium Ferritin Total Bilirubin AST ALT Lactate Dehydrogenase C-Reactive Protein Albumin Triglycerides Arterial Blood Glucose Arterial Blood Ionized Calcium Urine Creatinine Coronavirus (PCR) Crossmatch 02/16/21 02/16/21 02/16/21 17:09 17:09 17:09 WBC RBC Hgb Hct MCV MCH MCHC RDW Plt Count Lymph % (Auto) Lymph # (Auto) Seg Neutrophils % Seg Neuts % (Manual) Lymphocytes % (Manual) Nucleated RBC % Seg Neutrophils # Seg Neutrophils # Man Lymphocytes # (Manual) Eosinophils # (Manual) INR D-Dimer 4256.08 H ABG pH POC ABG pCO2 POC ABG pO2 ABG pO2 ABG HCO3 ABG O2 Saturation ABG Base Excess ABG Hemoglobin ABG Oxyhemoglobin ABG Sodium ABG Potassium ABG Chloride ABG Glucose Oxyhemoglobin Carboxyhemoglobin Sodium Potassium Chloride Carbon Dioxide BUN Creatinine Glucose POC Glucose Hemoglobin A1c Lactic Acid Calcium Phosphorus Magnesium Ferritin 980.6 H Total Bilirubin AST ALT Lactate Dehydrogenase 441 H C-Reactive Protein 20.20 H Albumin Triglycerides Arterial Blood Glucose Arterial Blood Ionized Calcium Urine Creatinine Coronavirus (PCR) Crossmatch 02/16/21 02/16/21 02/16/21 17:25 23:16 Unknown WBC RBC 2.19 L Hgb 7.1 L Hct 21.3 L MCV 98 H MCH 33 H MCHC RDW 16.0 H Plt Count Lymph % (Auto) Lymph # (Auto) Seg Neutrophils % Seg Neuts % (Manual) 85.0 H Lymphocytes % (Manual) 6.0 L Nucleated RBC % 4.0 H Seg Neutrophils # Seg Neutrophils # Man Lymphocytes # (Manual) 0.5 L Eosinophils # (Manual) INR D-Dimer ABG pH POC ABG pCO2 POC ABG pO2 ABG pO2 ABG HCO3 ABG O2 Saturation ABG Base Excess ABG Hemoglobin ABG Oxyhemoglobin ABG Sodium ABG Potassium ABG Chloride ABG Glucose Oxyhemoglobin Carboxyhemoglobin Sodium Potassium Chloride Carbon Dioxide BUN Creatinine Glucose POC Glucose 146 H 150 H Hemoglobin A1c Lactic Acid Calcium Phosphorus Magnesium Ferritin Total Bilirubin AST ALT Lactate Dehydrogenase C-Reactive Protein Albumin Triglycerides Arterial Blood Glucose Arterial Blood Ionized Calcium Urine Creatinine Coronavirus (PCR) Crossmatch 02/17/21 02/17/21 02/17/21 04:00 04:14 04:14 WBC RBC Hgb Hct MCV MCH MCHC RDW Plt Count Lymph % (Auto) Lymph # (Auto) Seg Neutrophils % Seg Neuts % (Manual) Lymphocytes % (Manual) Nucleated RBC % Seg Neutrophils # Seg Neutrophils # Man Lymphocytes # (Manual) Eosinophils # (Manual) INR D-Dimer 3183.35 H ABG pH 7.293 L POC ABG pCO2 59.5 H POC ABG pO2 68.1 L ABG pO2 ABG HCO3 ABG O2 Saturation ABG Base Excess ABG Hemoglobin 7.7 L ABG Oxyhemoglobin ABG Sodium 133.4 L ABG Potassium ABG Chloride ABG Glucose 143 H Oxyhemoglobin Carboxyhemoglobin Sodium 136 L Potassium Chloride 97.3 L Carbon Dioxide BUN 49 H Creatinine 5.3 H Glucose 139 H POC Glucose Hemoglobin A1c Lactic Acid Calcium Phosphorus Magnesium Ferritin Total Bilirubin AST ALT Lactate Dehydrogenase C-Reactive Protein Albumin Triglycerides Arterial Blood Glucose 143 H Arterial Blood Ionized Calcium Urine Creatinine Coronavirus (PCR) Crossmatch 02/17/21 02/17/21 02/17/21 04:14 04:14 04:14 WBC RBC 2.14 L Hgb 6.9 L Hct 21.0 L MCV 98 H MCH MCHC RDW 15.8 H Plt Count Lymph % (Auto) Lymph # (Auto) Seg Neutrophils % Seg Neuts % (Manual) Lymphocytes % (Manual) Nucleated RBC % Seg Neutrophils # Seg Neutrophils # Man Lymphocytes # (Manual) Eosinophils # (Manual) INR D-Dimer ABG pH POC ABG pCO2 POC ABG pO2 ABG pO2 ABG HCO3 ABG O2 Saturation ABG Base Excess ABG Hemoglobin ABG Oxyhemoglobin ABG Sodium ABG Potassium ABG Chloride ABG Glucose Oxyhemoglobin Carboxyhemoglobin Sodium Potassium Chloride Carbon Dioxide BUN Creatinine Glucose POC Glucose Hemoglobin A1c Lactic Acid Calcium Phosphorus Magnesium Ferritin 894.0 H Total Bilirubin AST ALT Lactate Dehydrogenase 399 H C-Reactive Protein 22.10 H Albumin Triglycerides Arterial Blood Glucose Arterial Blood Ionized Calcium Urine Creatinine Coronavirus (PCR) Crossmatch 02/17/21 02/17/21 02/17/21 06:06 07:45 12:25 WBC RBC Hgb 7.6 L Hct 22.8 L MCV MCH MCHC RDW Plt Count Lymph % (Auto) Lymph # (Auto) Seg Neutrophils % Seg Neuts % (Manual) Lymphocytes % (Manual) Nucleated RBC % Seg Neutrophils # Seg Neutrophils # Man Lymphocytes # (Manual) Eosinophils # (Manual) INR D-Dimer ABG pH POC ABG pCO2 POC ABG pO2 ABG pO2 ABG HCO3 ABG O2 Saturation ABG Base Excess ABG Hemoglobin ABG Oxyhemoglobin ABG Sodium ABG Potassium ABG Chloride ABG Glucose Oxyhemoglobin Carboxyhemoglobin Sodium Potassium Chloride Carbon Dioxide BUN Creatinine Glucose POC Glucose 134 H Hemoglobin A1c Lactic Acid Calcium Phosphorus Magnesium Ferritin Total Bilirubin AST ALT Lactate Dehydrogenase C-Reactive Protein Albumin Triglycerides Arterial Blood Glucose Arterial Blood Ionized Calcium Urine Creatinine Coronavirus (PCR) Crossmatch See Detail 02/17/21 02/17/21 02/17/21 12:35 17:56 23:34 WBC RBC Hgb Hct MCV MCH MCHC RDW Plt Count Lymph % (Auto) Lymph # (Auto) Seg Neutrophils % Seg Neuts % (Manual) Lymphocytes % (Manual) Nucleated RBC % Seg Neutrophils # Seg Neutrophils # Man Lymphocytes # (Manual) Eosinophils # (Manual) INR D-Dimer ABG pH POC ABG pCO2 POC ABG pO2 ABG pO2 ABG HCO3 ABG O2 Saturation ABG Base Excess ABG Hemoglobin ABG Oxyhemoglobin ABG Sodium ABG Potassium ABG Chloride ABG Glucose Oxyhemoglobin Carboxyhemoglobin Sodium Potassium Chloride Carbon Dioxide BUN Creatinine Glucose POC Glucose 114 H 128 H 120 H Hemoglobin A1c Lactic Acid Calcium Phosphorus Magnesium Ferritin Total Bilirubin AST ALT Lactate Dehydrogenase C-Reactive Protein Albumin Triglycerides Arterial Blood Glucose Arterial Blood Ionized Calcium Urine Creatinine Coronavirus (PCR) Crossmatch 02/18/21 02/18/21 02/18/21 04:03 04:55 05:02 WBC RBC 2.40 L Hgb 7.5 L Hct 23.1 L MCV 96 H MCH MCHC RDW 16.8 H Plt Count Lymph % (Auto) Lymph # (Auto) Seg Neutrophils % Seg Neuts % (Manual) Lymphocytes % (Manual) Nucleated RBC % Seg Neutrophils # Seg Neutrophils # Man Lymphocytes # (Manual) Eosinophils # (Manual) INR D-Dimer ABG pH 7.219 L POC ABG pCO2 58.7 H POC ABG pO2 64.2 L ABG pO2 ABG HCO3 ABG O2 Saturation ABG Base Excess ABG Hemoglobin ABG Oxyhemoglobin ABG Sodium 130.5 L ABG Potassium ABG Chloride ABG Glucose 147 H Oxyhemoglobin Carboxyhemoglobin Sodium 134 L Potassium Chloride 97.9 L Carbon Dioxide BUN 64 H Creatinine 6.5 H Glucose 135 H POC Glucose Hemoglobin A1c Lactic Acid Calcium 8.0 L Phosphorus Magnesium Ferritin Total Bilirubin AST ALT Lactate Dehydrogenase C-Reactive Protein Albumin Triglycerides Arterial Blood Glucose 147 H Arterial Blood Ionized Calcium Urine Creatinine Coronavirus (PCR) Crossmatch 02/18/21 02/18/21 02/18/21 05:27 10:00 11:51 WBC RBC Hgb Hct MCV MCH MCHC RDW Plt Count Lymph % (Auto) Lymph # (Auto) Seg Neutrophils % Seg Neuts % (Manual) Lymphocytes % (Manual) Nucleated RBC % Seg Neutrophils # Seg Neutrophils # Man Lymphocytes # (Manual) Eosinophils # (Manual) INR D-Dimer ABG pH POC ABG pCO2 POC ABG pO2 ABG pO2 ABG HCO3 ABG O2 Saturation ABG Base Excess ABG Hemoglobin ABG Oxyhemoglobin ABG Sodium ABG Potassium ABG Chloride ABG Glucose Oxyhemoglobin Carboxyhemoglobin Sodium Potassium Chloride Carbon Dioxide BUN Creatinine Glucose POC Glucose 130 H 123 H Hemoglobin A1c Lactic Acid Calcium Phosphorus Magnesium Ferritin Total Bilirubin AST ALT Lactate Dehydrogenase C-Reactive Protein Albumin Triglycerides Arterial Blood Glucose Arterial Blood Ionized Calcium Urine Creatinine Coronavirus (PCR) Positive A Crossmatch 02/18/21 02/18/21 02/19/21 18:10 23:35 05:00 WBC RBC Hgb Hct MCV MCH MCHC RDW Plt Count Lymph % (Auto) Lymph # (Auto) Seg Neutrophils % Seg Neuts % (Manual) Lymphocytes % (Manual) Nucleated RBC % Seg Neutrophils # Seg Neutrophils # Man Lymphocytes # (Manual) Eosinophils # (Manual) INR D-Dimer ABG pH 7.232 L POC ABG pCO2 64.3 H POC ABG pO2 ABG pO2 ABG HCO3 ABG O2 Saturation ABG Base Excess ABG Hemoglobin 8.1 L ABG Oxyhemoglobin ABG Sodium 133.5 L ABG Potassium ABG Chloride ABG Glucose 148 H Oxyhemoglobin Carboxyhemoglobin 1.6 H Sodium Potassium Chloride Carbon Dioxide BUN Creatinine Glucose POC Glucose 123 H 137 H Hemoglobin A1c Lactic Acid Calcium Phosphorus Magnesium Ferritin Total Bilirubin AST ALT Lactate Dehydrogenase C-Reactive Protein Albumin Triglycerides Arterial Blood Glucose 148 H Arterial Blood Ionized Calcium Urine Creatinine Coronavirus (PCR) Crossmatch 02/19/21 02/19/21 02/19/21 05:12 05:45 05:45 WBC RBC Hgb Hct MCV MCH MCHC RDW Plt Count Lymph % (Auto) Lymph # (Auto) Seg Neutrophils % Seg Neuts % (Manual) Lymphocytes % (Manual) Nucleated RBC % Seg Neutrophils # Seg Neutrophils # Man Lymphocytes # (Manual) Eosinophils # (Manual) INR D-Dimer 4840.82 H ABG pH POC ABG pCO2 POC ABG pO2 ABG pO2 ABG HCO3 ABG O2 Saturation ABG Base Excess ABG Hemoglobin ABG Oxyhemoglobin ABG Sodium ABG Potassium ABG Chloride ABG Glucose Oxyhemoglobin Carboxyhemoglobin Sodium 135 L Potassium Chloride 97.8 L Carbon Dioxide BUN 58 H Creatinine 5.6 H Glucose 140 H POC Glucose 134 H Hemoglobin A1c Lactic Acid Calcium Phosphorus Magnesium Ferritin Total Bilirubin AST ALT Lactate Dehydrogenase 345 H C-Reactive Protein 15.20 H Albumin Triglycerides 195 H Arterial Blood Glucose Arterial Blood Ionized Calcium Urine Creatinine Coronavirus (PCR) Crossmatch 02/19/21 02/19/21 02/19/21 05:45 12:00 17:48 WBC RBC Hgb Hct MCV MCH MCHC RDW Plt Count Lymph % (Auto) Lymph # (Auto) Seg Neutrophils % Seg Neuts % (Manual) Lymphocytes % (Manual) Nucleated RBC % Seg Neutrophils # Seg Neutrophils # Man Lymphocytes # (Manual) Eosinophils # (Manual) INR D-Dimer ABG pH POC ABG pCO2 POC ABG pO2 ABG pO2 ABG HCO3 ABG O2 Saturation ABG Base Excess ABG Hemoglobin ABG Oxyhemoglobin ABG Sodium ABG Potassium ABG Chloride ABG Glucose Oxyhemoglobin Carboxyhemoglobin Sodium Potassium Chloride Carbon Dioxide BUN Creatinine Glucose POC Glucose 122 H 119 H Hemoglobin A1c Lactic Acid Calcium Phosphorus Magnesium Ferritin 951.8 H Total Bilirubin AST ALT Lactate Dehydrogenase C-Reactive Protein Albumin Triglycerides Arterial Blood Glucose Arterial Blood Ionized Calcium Urine Creatinine Coronavirus (PCR) Crossmatch 02/20/21 02/20/21 03:20 04:00 WBC RBC Hgb Hct MCV MCH MCHC RDW Plt Count Lymph % (Auto) Lymph # (Auto) Seg Neutrophils % Seg Neuts % (Manual) Lymphocytes % (Manual) Nucleated RBC % Seg Neutrophils # Seg Neutrophils # Man Lymphocytes # (Manual) Eosinophils # (Manual) INR D-Dimer ABG pH 7.276 L POC ABG pCO2 57.3 H POC ABG pO2 71.0 L ABG pO2 ABG HCO3 ABG O2 Saturation ABG Base Excess ABG Hemoglobin 8.2 L ABG Oxyhemoglobin 91.9 L ABG Sodium 128.1 L ABG Potassium 4.8 H ABG Chloride ABG Glucose Oxyhemoglobin Carboxyhemoglobin 1.6 H Sodium 136 L Potassium Chloride Carbon Dioxide BUN 69 H Creatinine 6.4 H Glucose POC Glucose Hemoglobin A1c Lactic Acid Calcium 8.1 L Phosphorus Magnesium Ferritin Total Bilirubin AST ALT Lactate Dehydrogenase C-Reactive Protein Albumin Triglycerides Arterial Blood Glucose Arterial Blood Ionized Calcium 4.5 L Urine Creatinine Coronavirus (PCR) Crossmatch
--- NOTE | 2021-02-20 12:46 | Progress Note ---
Assessment and Plan Acute Hypoxic respiratory failure COVID-19 PNA Severe sepsis with septic shock Acute kidney injury secondary to ATN Hyperkalemia Hypernatremia DM2 on insulin Anemia Plan: Hemodialysis today for UF and clearance Initiated on HD on 02/03/21 S/P Right IJ Trialysis dialysis catheter placement by Dr Reddy Strict I&O's monitoring, no UOP recorded Renally dose medications Assess dialysis needs daily Monitor for renal recovery Subjective Date of service: 02/20/21 Principal diagnosis: DEISI Interval history: no acute events, HD today Objective - Vital Signs Vital signs: Vital Signs - 12hr 02/20/21 02/20/21 02/20/21 00:55 01:00 01:30 Temperature Pulse Rate 95 H 95 H 95 H Pulse Rate [ From Monitor] Respiratory 35 H 36 H Rate Blood Pressure 112/53 108/62 105/61 O2 Sat by Pulse 93 95 92 Oximetry O2 Sat by Pulse Oximetry [ Anterior Bilateral Throughout] 02/20/21 02/20/21 02/20/21 02:00 02:30 03:00 Temperature Pulse Rate 93 H 93 H 93 H Pulse Rate [ From Monitor] Respiratory 35 H 35 H 36 H Rate Blood Pressure 108/57 107/57 109/56 O2 Sat by Pulse 96 95 95 Oximetry O2 Sat by Pulse Oximetry [ Anterior Bilateral Throughout] 02/20/21 02/20/21 02/20/21 03:30 04:00 04:30 Temperature Pulse Rate 91 H 90 89 Pulse Rate [ 90 From Monitor] Respiratory 36 H 35 H 36 H Rate Blood Pressure 106/52 104/60 104/60 O2 Sat by Pulse 92 96 94 Oximetry O2 Sat by Pulse Oximetry [ Anterior Bilateral Throughout] 02/20/21 02/20/21 02/20/21 04:44 05:00 05:30 Temperature Pulse Rate 88 89 Pulse Rate [ From Monitor] Respiratory 36 H 36 H Rate Blood Pressure 106/62 97/57 105/60 O2 Sat by Pulse 93 94 95 Oximetry O2 Sat by Pulse Oximetry [ Anterior Bilateral Throughout] 02/20/21 02/20/21 02/20/21 06:00 06:30 07:00 Temperature Pulse Rate 90 93 H 100 H Pulse Rate [ From Monitor] Respiratory 33 H 35 H 37 H Rate Blood Pressure 116/63 125/69 131/72 O2 Sat by Pulse 96 92 92 Oximetry O2 Sat by Pulse Oximetry [ Anterior Bilateral Throughout] 02/20/21 02/20/21 02/20/21 07:30 07:35 08:00 Temperature 99.1 F 99.1 F Pulse Rate 102 H 102 H Pulse Rate [ From Monitor] Respiratory 36 H 35 H Rate Blood Pressure 137/77 125/72 O2 Sat by Pulse 96 Oximetry O2 Sat by Pulse Oximetry [ Anterior Bilateral Throughout] 02/20/21 02/20/21 02/20/21 08:30 09:00 09:15 Temperature 98.3 F Pulse Rate 102 H 101 H 103 H Pulse Rate [ From Monitor] Respiratory 35 H 35 H 36 H Rate Blood Pressure 126/69 122/65 153/82 O2 Sat by Pulse 94 90 Oximetry O2 Sat by Pulse 91 Oximetry [ Anterior Bilateral Throughout] 02/20/21 02/20/21 02/20/21 09:23 09:30 09:45 Temperature Pulse Rate 102 H 102 H 103 H Pulse Rate [ From Monitor] Respiratory 34 H Rate Blood Pressure 120/65 145/82 147/80 O2 Sat by Pulse 93 91 Oximetry O2 Sat by Pulse Oximetry [ Anterior Bilateral Throughout] 02/20/21 02/20/21 02/20/21 10:00 10:15 10:30 Temperature Pulse Rate 102 H 103 H 102 H Pulse Rate [ From Monitor] Respiratory Rate Blood Pressure 131/70 128/67 121/67 O2 Sat by Pulse Oximetry O2 Sat by Pulse Oximetry [ Anterior Bilateral Throughout] 02/20/21 02/20/21 02/20/21 10:45 11:00 11:15 Temperature Pulse Rate 101 H 100 H 99 H Pulse Rate [ From Monitor] Respiratory Rate Blood Pressure 123/68 126/67 123/62 O2 Sat by Pulse Oximetry O2 Sat by Pulse Oximetry [ Anterior Bilateral Throughout] 02/20/21 02/20/21 02/20/21 11:30 11:45 12:00 Temperature Pulse Rate 99 H 100 H 99 H Pulse Rate [ From Monitor] Respiratory Rate Blood Pressure 121/67 119/64 122/67 O2 Sat by Pulse Oximetry O2 Sat by Pulse Oximetry [ Anterior Bilateral Throughout] 02/20/21 02/20/21 02/20/21 12:15 12:17 12:30 Temperature 98.3 F Pulse Rate 100 H 99 H Pulse Rate [ From Monitor] Respiratory Rate Blood Pressure 131/73 128/73 O2 Sat by Pulse Oximetry O2 Sat by Pulse Oximetry [ Anterior Bilateral Throughout] - Lab 02/18/21 05:02 02/20/21 04:00 Most recent lab results ABG pH 7.276 (7.320-7.450) L 02/20/21 03:20 ABG pCO2 51.2 mm Hg 02/12/21 04:41 ABG pO2 69.0 mm Hg (80.0-90.0) L 02/12/21 04:41 ABG HCO3 32.5 mmol/L (20.0-26.0) H 02/12/21 04:41 ABG O2 Saturation 93.7 (0-100) 02/20/21 03:20 Calcium 8.1 mg/dL (8.4-10.2) L 02/20/21 04:00 Phosphorus 3.90 mg/dL (2.5-4.5) 02/13/21 06:40 Magnesium 1.70 mg/dL (1.7-2.3) 02/16/21 17:09 Urine Creatinine 53.0 mg/dL (0.1-20.0) H 01/30/21 12:00 Urine Sodium 28 mmol/L 01/22/21 22:39 Medications & Allergies - Medications Allergies/Adverse Reactions: Allergies No Known Allergies Allergy (Unverified 03/12/20 13:41) Home Medications: Home Medications Medication Instructions Recorded Confirmed Last Taken Type Insulin NPH/Regular [Novolin 70/30] 18 unit SUB-Q TIDAC #1 vial 03/12/20 Unknown Rx Syringe-Needle,Insulin,0.5 ml 1 box MC TID #1 box 03/12/20 Unknown Rx [Insulin Syringe/Needle 0.5 ML] Active Medications: Generic Name Dose Route Start Last Admin Trade Name Freq PRN Reason Stop Dose Admin Acetaminophen 650 mg 01/23/21 02:25 02/11/21 18:20 Acetaminophen 650 Mg Rect Supp ID 650 mg Q4H PRN Administration Pain, Mild (1-3) Acetaminophen 650 mg 01/24/21 12:58 02/15/21 18:06 Acetaminophen 325 Mg/10.15 Ml Oral Liqd Unit Dose FEEDTUBE 650 mg Q6H PRN Administration Pain, Mild (1-3) Lipase/Protease/Amylase 1 each 01/26/21 14:25 Lipase 10,500/Protease 25,000/Amylase 43,750 (Units) Dr Cap FEEDTUBE PRN PRN For Clogged Feeding Tube Dextrose 50 ml 01/27/21 07:24 Dextrose 50% In Water (25gm) 50 Ml Syringe IV Q30MIN PRN Hypoglycemia Protocol Fentanyl 50 mcg 01/22/21 22:39 02/10/21 13:46 Fentanyl 100 Mcg/2 Ml Inj IV 50 mcg Q10MIN PRN Administration ANALGESIA Heparin Sodium (Porcine) 2,000 unit 02/11/21 09:38 Heparin 10,000 Units/10 Ml Vial IV SAGRARIO PRN hemodialysis Heparin Sodium (Porcine) 5,000 unit 02/19/21 14:00 02/20/21 05:47 Heparin 5,000 Unit/1 Ml Vial SUB-Q 5,000 unit Q8HR CECE Administration Hydrophilic Ointment 1 applic 01/22/21 22:39 02/17/21 17:14 Lip Therapy Vaseline TP 1 applic Q2HR PRN Administration Dry Lips Fentanyl Citrate 2,000 mcg in 100 mls @ 6.124 mls/hr 01/22/21 23:00 02/20/21 07:22 Fentanyl Drip Premix IV 3 mcg/kg/hr TITR CECE 18.371 mls/hr Administration Protocol 1 MCG/KG/HR Propofol 1,000 mg in 100 mls @ 3.674 mls/hr 01/22/21 23:45 02/20/21 09:42 Diprivan 10 Mg/Ml IV 20 mcg/kg/min TITR CECE 14.696 mls/hr Administration Protocol 5 MCG/KG/MIN Norepinephrine 4 mg in 250 mls @ 7.5 mls/hr 01/28/21 14:00 02/08/21 06:08 Levophed Drip 4 Mg/Ns 250 Ml IV 0 mcg/min TITR CECE 0 mls/hr Titration Protocol 2 MCG/MIN Dexmedetomidine HCl 1,000 mcg/ 260 mls @ 6.368 mls/hr 01/30/21 20:00 02/20/21 06:45 Sodium Chloride IV 1.2 mcg/kg/hr TITRATE CECE 38.211 mls/hr Administration Protocol 0.2 MCG/KG/HR Sodium Chloride 100 mls @ 999 mls/hr 02/15/21 16:45 Nacl 0.9% IV SAGR[place]IO PRN Hypotension Lansoprazole 30 mg 02/18/21 10:00 02/20/21 09:43 Lansoprazole 30 Mg Solutab FEEDTUBE 30 mg QDAY CECE Administration Multi-Ingred Cream/Lotion/Oil/Oint 1 applic 01/22/21 22:39 02/01/21 09:33 Mineral Oil/Petrolatum, White Ophth Oint 3.5 Gm OU 1 applic Q4HR PRN Administration Dry Eye(s) Ondansetron HCl 4 mg 01/23/21 02:17 Ondansetron 4 Mg/2 Ml Inj IV Q8H PRN Nausea And Vomiting Senna/Docusate Sodium 2 tab 02/17/21 11:00 02/20/21 09:43 Sennosides/Docusate Sodium 8.6/50 Mg Tab PO 2 tab TID CECE Administration Simple Syrup 15 ml 01/26/21 14:25 Simple Syrup 15 Ml FEEDTUBE PRN PRN Hypoglycemia Simple Syrup 30 ml 01/26/21 14:25 Simple Syrup 15 Ml FEEDTUBE PRN PRN Hypoglycemia Sodium Bicarbonate 325 mg 01/26/21 14:25 Sodium Bicarbonate 325 Mg Tab FEEDTUBE PRN PRN For Clogged Feeding Tube
--- NOTE | 2021-02-20 17:17 | Progress Note ---
Assessment and Plan Assessment and plan: This is a 60-year-old male with diabetes mellitus, hypertension, hyperlipidemia, chronic renal insufficiency who was admitted on 01/23 as a COVID-19 PUI with Sepsis, COVID-19 pneumonia, coag negative staph bacteremia, acute hypoxic respiratory failure, and acute kidney injury. Sepsis COVID-19 pneumonia Coag-neg Staph bacteremia Acute hypoxic respiratory failure Acute kidney injury, HD initiated 02/03 Anemia Hyponatremia Hypochloremia Diabetes mellitus Hypertension Hyperlipidemia Chronic renal insufficiency Elevated D-dimer -CCM, nephrology, infectious disease, GI consulted, appreciate recommendations -s/p Antibiotic therapy, remdesivir -COVID-19 PCR positive, Pneumonia on CXR -Steroid therapy -Mechanical ventilation, wean as tolerated -VAP bundle -HD per nephrology -S/p 4 units PRBC during stay -Trend BMP, CBC, COVID-19 inflammatory markers -Bilateral lower extremity and upper extremity Doppler ultrasound negative for DVT/SVT -SSI and Long-acting insulin -Accu-Cheks every 6 while on tube feedings -Hold home antihypertensive regimen for now as he is still needing vasopressor support -Blood pressure monitoring per protocol -S/p NaHCO3 gtt -02/17 CT head showed no acute intracranial abnormality, paranasal sinus disease -Bowel regimen DVT/GI prophylaxis: SCDs to bilateral lower extremities while in bed, PPI, heparin subq Dispo: ICU The high probability of a clinically significant, sudden or life threatening deterioration of the [multi] system(s) required my full and direct attention, intervention and personal management. The aggregate critical care time was [32] minutes. This time is in addition to time spent performing reported procedures but includes the following: [x] Data Review and interpretation [x] Patient assessment and monitoring of vital signs [x] Documentation [x] Medication orders and management History Interval history: This is a 60-year-old male with diabetes mellitus, hypertension, hyperlipidemia, chronic renal insufficiency presents to the emergency department on 01/23 with shortness of breath, fevers chills, loss of smell and taste and body aches for the past 3 days via EMS. Per EMS patient's oxygen saturation on room air was 50% and after being placed on nonrebreather it increased 75%. Upon arrival to the emergency department patient was being bagged by EMS. In the emergency room patient was intubated due to severe hypoxia, increased work of breathing and lethargy. Patient was sedated on propofol and fentanyl. Patient presented with fever, tachycardia, tachypnea and acute hypoxic respiratory failure with PNA on CXR meeting Sepsis criteria. Lab work in the emergency department revealed hy ponatremia, hypokalemia, hypochloremia, elevated CR/BUN and CXR showed bilateral pneumonia. Patient was admitted to the hospital service as a COVID-19 PUI with consults to infectious disease, nephrology and critical care medicine. 01/24/2021: Patient is intubated and sedated, patient is positive for COVID-19 infection. ID was consulted and put on dexamethasone and remdesivir. Patient has DEISI and nephrology is following. Creatinine stable, patient is urinating. Discussed with nephrology and he is okay with remdesivir. Pulmonary critical care is following for his vent setting. PEEP of 8 and FiO2 of 85%. Patient was alert and off sedatives. 01/25/2021; patient is intubated and on mechanical ventilation. Continue with treatment of Covid. Nephrology and ID is following. Pulmonary is following for vent management 01/26: Remains on mechanical ventilation and [facility] increased his PEEP. [facility] has ordered Precedex for sedation. Possibly need to prone this p.m. No acute events reported overnight. This morning his D-dimer is greater than 10,000 and we have started him on Lovenox 120 mg daily. Nutrition has been consulted for initiation of tube feedings. Patient remains sedated on propofol 40 and fentanyl for the time my examination this morning. 01/27: Continue Lovenox, remdesivir and empiric antibiotics. Patient had a T-max of 101 overnight. The time of examination patient is on CMV 500/18/14/0.61. Kidney function slightly worsened. Sedated on fentanyl ground-level fall and Precedex. Nephrology has increased IV fluids to 100 ml/hr. Continue to trend BMP and CBC. Sedation vacation attempt by RN this AM. 01/28: Patient completed antibiotics today [facility] will paralyze patient and increase sedation. PICC line ordered for possible vasopressor therapy need. Patient's D-dimer remains greater than 10,000 and he still has hyperchloremia. Patient's kidney function has improved today. May need to prone the patient if no improvement in oxygenation is noted in the next 24 hours. The time of my examination patient is sedated with propofol, fentanyl and Precedex and is on assist control 500/18/16/0.80 hypoxic on ABG on 60% FiO2. 01/29: Patient was started on Nimbex yesterday and his ABG this morning showed respiratory acidosis with hypercapnia and his respiratory rate was increased. We will obtain a repeat ABG this afternoon. This morning patient is hypernatremic, hyperkalemic and hyperchloremic. His potassium has been corrected with the management and will obtain repeat BMP tomorrow. His kidney functions have remained stable and we will await nephrology's input. No acute events reported overnight. This morning the time my examination patient sedated with propofol, Precedex and fentanyl and paralyzed with Nimbex. He is on assist control 500/24/16 0.80. 01/30: This morning patient is hypokalemic again and was given Kayexalate. Patient has hypernatremia and hyper chloremia and his renal function is slightly worse after receiving Lasix yesterday. His D-dimer remains greater than 10,000 and he is still on a paralytic. Patient is sedated on Precedex, fentanyl, propofol. Mechanical ventilation settings seven-point /61/28. [facility] has decided to continue paralytics for 48 more hours and will attempt proning the patient. Increased free water flushes 300 cc every 4 hours. Patient states has restarted his antibiotics cefepime and vancomycin and recultured. 01/31/21 Hyperkalemia, Treated 02/01/21 Hyperkalemia, Treated 02/02: Patient's kidney function continues to worsen and a stat BMP this morning shows BUN/creatinine 20/6.1 and he remains hypocalcemic and hypernatremic, hypokalemic and hypochloremic. Patient received 2 g of calcium gluconate and Kayexalate and his repeat potassium was 4.3 this afternoon. He remains antibiotic therapy and steroids. Nephrology has placed the patient on bicarb drip given metabolic acidosis and has decided to hold off hemodialysis till tomorrow.The time my examination patient is sedated on fentanyl, Precedex and on assist control 500/20/12/0.70. s/p paralytic. 02/03: Today patient's ABG shows respiratory acidosis however it is improving, hypernatremia, hyperchloremia, metabolic acidosis on BMP, worsening kidney function BUN/creatinine 130/9.2 with hyperphosphatemia. Patient received a Vas- Cath to his right IJ for initiation of dialysis. At the time of my examination patient remains sedated on fentanyl, propofol and Precedex with vasopressor support with Levophed at 2. 02/04: At the time of examination patient was on assist control tidal volume 500, rate 40, PEEP of 12, FiO2 85%. Patient had a T-max of 100.9 and infectious disease has stopped his vancomycin given negative MRSA. This afternoon patient respiked his temperature and was pancultured again. Patient was started on hemodialysis yesterday and will receive HD again today. Patient is sedated on Precedex, propofol, fentanyl and remains on Levophed. He is on assist control tidal volume 500, rate of 30, PEEP of 12, FiO2 of 85%. Patient still has some respiratory acidosis however his hypernatremia and hyperchloremia have improved and his metabolic acidosis has resolved. Patient will receive hemodialysis today 02/05: Patient continues to have low-grade fever temp this morning time examination he was on assist control tidal volume 500, and sedated on propofol/fentanyl/Precedex and is on Levophed. Hemodialysis per nephrology. Antibiotics per ID. Patient's blood culture from 02/04 grew gram-positive cocci in clusters in 1/2 bottles and he was started on vancomycin. 02/06: Patients ABG showed respiratory acidosis and the tracings were changed however a repeat ABG showed showed acidosis.[facility] will start a bicarb drip after giving 2 amps of bicarb push. Yesterday patient blood cultures grew gram- positive cocci and he was started on vancomycin. At the time my examination patient was on assist control tidal volume 550, rate 34, PEEP 16, FiO2 90% and sedated on fentanyl, Precedex, propofol elevated pressure support with Levophed. Bilateral lower extremity Doppler ultrasounds done yesterday showed no evidence of DVT/SVT. 02/07/2021; patient is still on the vent with PEEP of 16 and FiO2 of 90%, sedated with fentanyl Precedex and propofol. Patient still requiring Levophed. Patient was sedated yesterday and was given bicarb push. Blood culture grew gram-positive cocci in clusters and he is on vancomycin, will follow identification. 02/08/2021;patient is still on the vent with PEEP of 16 and FiO2 of 90%, sedated with fentanyl Precedex and propofol. Patient still requiring Levophed. Patient was sedated yesterday and was given bicarb push. Blood culture grew gram- positive cocci in clusters and he is on vancomycin, will follow identification. Patient is currently on dialysis. Patient is anemic transfuse if hemoglobin is below 7. 02/09: This morning patient has slight hypokalemia, hypochorlemia, hyponatremia and metabolic alkalosis. [facility] will continue bicarb gtt given that the patient does not have HD access at this time. We will replete the potassium and recheck BMP in the AM. We will type and cross in anticipation of PRBC transfusion. This morning he is sedated on Ativan, fentayl, and precedex. Will obtain a triglyceride level today in hopes to resume propofol. Patient is alkalotic and BMP however we will continue with bicarb drip per [facility] given that the patient does not have any access for hemodialysis. Anticipate replacing hemodialysis catheter tomorrow or Tuesday. The time my examination he is on AC TV 550, Rate 34, PeeP 16, FiO2 .65. 02/10: A.m. labs still pending, [facility] plans to replace HD catheter tomorrow as the patient is still febrile however his fever curve is trending down, remains on a bicarb drip and on vancomycin. Today at the time my examination patient was sedated on Precedex, Ativan and fentanyl and he is on assist control tidal 11/04/1951, rate 34, PEEP 16, FiO2 65%. Overnight patient was hypotensive and received 1 dose of midodrine. 02/11: Patient is still having low-grade temperatures that we will obtain a bilateral lower upper extremity venous Doppler ultrasound given that his repeat cultures have been negative so far. Patient received a Vas-Cath today for hemodialysis. The time examination patient is on assist control tidal volume 550, rate of 34, PEEP of 16 and FiO2 of 75%. Patient was hypokalemic and anemic yesterday which were both repleted with potassium and 1 unit PRBC. 02/12: 02/12: Patient had a 12-second run of V. tach today, his potassium and magnesium were low which was repleted. Renal adjusted potassium bath. We will obtain a triglyceride level in hopes to restarting to prevent as needed. This morning at the time my examination patient was sedated on fentanyl, Ativan and Precedex and remained on a bicarb drip. He was on assist control tidal volume 550, rate 34, PEEP 16, FiO2 85%. We will obtain a occult stool given no evident source of bleeding and need for transfusion. Anemia possibly due to hemodialysis. 02/13: Patient's T-max was 100.7, remains on fentanyl, Ativan, Precedex and bicarb drip this morning at some examination on assist control tidal volume 550, rate 34, PEEP 16 and FiO2 85%. On the labs this morning is slightly hypokalemic and remains metabolic alkalotic on BMP. His occult was positive. His Lovenox and consult GI. Patient received hemodialysis today. 02/14: cont PPI, GI recommended to scope now, monitor clinically, tolerating TF, remains intubated. Hb 6.9 today - transfuse another unit. very poor prognosis. 02/15: H&H appears to be stable following 1 unit of transfusion yesterday. C ontinue to hold heparin and aspirin products. Continue to monitor clinically. Poor prognosis. Wean off from vent as tolerated. 02/16: Infectious disease has signed off, his Ativan drip was discontinued and to prevent drip will be started when patient needs it. T-max 100.6 yesterday afternoon. He received hemodialysis today and at the time my examination was still on mechanical ventilation assist control tidal volume 550, rate 34, PEEP 16 on 70% FiO2. Patient was sedated on fentanyl dexamethasone and Ativan. No acute events reported overnight. 02/17: This morning patient was scheduled to get 2 units PRBC however his repeat H/H after 1 unit PRBC was 7.6/22.8 and the width of the second unit PRBC. This morning patient was sedated on fentanyl, propofol, Precedex and on assist control tolerated by 50, rate 34, PEEP of 16, FiO2 35%. Wound care was consulted today for his upper lip wound. Nephrology continues to withhold dialysis. No acute events reported overnight. Dr. Adkins was unable to contact family for updates. 02/18: Family updated by Dr. Adkins and Dr. Reddy. Patient had a hemodialysis today. The time my examination patient was on assist control tidal volume 550, rate 34, PEEP 16 and FiO2 35%. Overnight patient had a CT head and he was placed on 3% FiO2 and took "a long time to recover" per RN report. 02/19: Patient's D-dimer is trending up therefore he was started on prophylactic anticoagulation, no bowel movement for several days so he was started on mag citrate today. The time examination patient is sedated on Precedex 1.2, fentanyl 3, propofol 20 on assist control tidal volume 550, rate 34, PEEP 16, 80% FiO2 and on his ABG his PaO2 is 106. RT will try to wean as tolerated. Repeat COVID-19 PCR today was positive.Dr. Adkins updated the family today. 02/20: Patient received hemodialysis today. In the time my examination patient was sedated on Precedex, fentanyl, propofol and on assist control tidal line 550, rate 34, PEEP of 16 and 75% FiO2. Patient had a bowel movement yesterday. Hospitalist Physical - Constitutional Vitals: Temp Pulse Resp BP Pulse Ox 99.5 F 100 H 34 H 105/59 96 02/20/21 16:39 02/20/21 17:01 02/20/21 15:30 02/20/21 17:01 02/20/21 17:01 General appearance: Present: no acute distress, well-nourished, other (Sedated on mechanical ventilation) - EENT Eyes: Present: PERRL ENT: ulcerations - Neck Neck: Present: supple - Respiratory Respiratory effort: normal Respiratory: bilateral: rhonchi - Cardiovascular Rhythm: regular Heart Sounds: Present: S1 & S2. Absent: systolic murmur, diastolic murmur - Extremities Extremities: no ischemia, pulses intact, pulses symmetrical, normal temperature, normal color Extremity abnormal: edema - Peripheral Assessment Generalized Edema Type: Pitting Edema Degree: 3+ Capillary Refill: < 3 seconds Skin Temperature: Warm Peripheral Pulses: within normal limits - Abdominal General gastrointestinal: soft, non-tender, non-distended, normal bowel sounds - Integumentary Integumentary: Present: warm, dry - Psychiatric Psychiatric: other (Sedated) - Neurologic Neurologic: other (Sedated) - Allied Health Allied health notes reviewed: nursing, RT HEART Score - HEART Score Risk factors: 1-2 risk factors Troponin: < normal limit - Critical Actions Critical Actions: 0-3 pts:0.9-1.7%risk of adverse cardiac event.Candidate for discharge Results - Labs CBC & Chem 7: 02/18/21 05:02 02/20/21 04:00 Labs: Laboratory Last Values WBC 8.4 K/mm3 (4.5-11.0) 02/18/21 05:02 RBC 2.40 M/mm3 (3.65-5.03) L 02/18/21 05:02 Hgb 7.5 gm/dl (11.8-15.2) L 02/18/21 05:02 Hct 23.1 % (35.5-45.6) L 02/18/21 05:02 MCV 96 fl (84-94) H 02/18/21 05:02 MCH 31 pg (28-32) 02/18/21 05:02 MCHC 32 % (32-34) 02/18/21 05:02 RDW 16.8 % (13.2-15.2) H 02/18/21 05:02 Plt Count 231 K/mm3 (140-440) 02/18/21 05:02 Lymph % (Auto) 11.0 % (13.4-35.0) L 02/15/21 05:00 [place] % (Auto) 4.2 % (0.0-7.3) 02/15/21 05:00 Eos % (Auto) 1.2 % (0.0-4.3) 02/15/21 05:00 Baso % (Auto) 0.6 % (0.0-1.8) 02/15/21 05:00 Lymph # (Auto) 1.1 K/mm3 (1.2-5.4) L 02/15/21 05:00 [place] # (Auto) 0.4 K/mm3 (0.0-0.8) 02/15/21 05:00 Eos # (Auto) 0.1 K/mm3 (0.0-0.4) 02/15/21 05:00 Baso # (Auto) 0.1 K/mm3 (0.0-0.1) 02/15/21 05:00 Add Manual Diff Complete 02/16/21 Unknown Total Counted 100 02/16/21 Unknown Seg Neutrophils % 83.0 % (40.0-70.0) H 02/15/21 05:00 Seg Neuts % (Manual) 85.0 % (40.0-70.0) H 02/16/21 Unknown Band Neutrophils % 2.0 % 02/16/21 Unknown Lymphocytes % (Manual) 6.0 % (13.4-35.0) L 02/16/21 Unknown Reactive Lymphs % (Man) 1.0 % 01/27/21 05:29 Monocytes % (Manual) 5.0 % (0.0-7.3) 02/16/21 Unknown Eosinophils % (Manual) 1.0 % (0.0-4.3) 02/16/21 Unknown Basophils % (Manual) 1.0 % (0.0-1.8) 02/06/21 Unknown Metamyelocytes % 1.0 % 02/16/21 Unknown Nucleated RBC % 4.0 % (0.0-0.9) H 02/16/21 Unknown Seg Neutrophils # 8.6 K/mm3 (1.8-7.7) H 02/15/21 05:00 Seg Neutrophils # Man 7.6 K/mm3 (1.8-7.7) 02/16/21 Unknown Band Neutrophils # 0.2 K/mm3 02/16/21 Unknown Lymphocytes # (Manual) 0.5 K/mm3 (1.2-5.4) L 02/16/21 Unknown Abs React Lymphs (Man) 0.0 K/mm3 02/16/21 Unknown Monocytes # (Manual) 0.4 K/mm3 (0.0-0.8) 02/16/21 Unknown Eosinophils # (Manual) 0.1 K/mm3 (0.0-0.4) 02/16/21 Unknown Basophils # (Manual) 0.0 K/mm3 (0.0-0.1) 02/16/21 Unknown Metamyelocytes # 0.1 K/mm3 02/16/21 Unknown Myelocytes # 0.0 K/mm3 02/16/21 Unknown Promyelocytes # 0.0 K/mm3 02/16/21 Unknown Blast Cells # 0.0 K/mm3 02/16/21 Unknown WBC Morphology Not Reportable 02/16/21 Unknown Hypersegmented Neuts Not Reportable 02/16/21 Unknown Hyposegmented Neuts Not Reportable 02/16/21 Unknown Hypogranular Neuts Not Reportable 02/16/21 Unknown Smudge Cells Not Reportable 02/16/21 Unknown Toxic Granulation Not Reportable 02/16/21 Unknown Toxic Vacuolation Not Reportable 02/16/21 Unknown Dohle Bodies Not Reportable 02/16/21 Unknown Pelger-Huet Anomaly Not Reportable 02/16/21 Unknown Fátima Rods Not Reportable 02/16/21 Unknown Platelet Estimate Consistent w auto 02/16/21 Unknown Clumped Platelets Not Reportable 02/16/21 Unknown Plt Clumps, EDTA Not Reportable 02/16/21 Unknown Large Platelets Not Reportable 02/16/21 Unknown Giant Platelets Not Reportable 02/16/21 Unknown Platelet Satelliting Not Reportable 02/16/21 Unknown Plt Morphology Comment Not Reportable 02/16/21 Unknown RBC Morphology Not Reportable 02/16/21 Unknown Dimorphic RBCs Not Reportable 02/16/21 Unknown Polychromasia Not Reportable 02/16/21 Unknown Hypochromasia Not Reportable 02/16/21 Unknown Poikilocytosis Not Reportable 02/16/21 Unknown Anisocytosis 1+ 02/16/21 Unknown Microcytosis Not Reportable 02/16/21 Unknown Macrocytosis Not Reportable 02/16/21 Unknown Spherocytes Not Reportable 02/16/21 Unknown Pappenheimer Bodies Not Reportable 02/16/21 Unknown Sickle Cells Not Reportable 02/16/21 Unknown Target Cells Not Reportable 02/16/21 Unknown Tear Drop Cells Not Reportable 02/16/21 Unknown Ovalocytes Not Reportable 02/16/21 Unknown Helmet Cells Not Reportable 02/16/21 Unknown [employer] Bodies Not Reportable 02/16/21 Unknown [place] Rings Not Reportable 02/16/21 Unknown [place] Cells Not Reportable 02/16/21 Unknown Bite Cells Not Reportable 02/16/21 Unknown Crenated Cell Not Reportable 02/16/21 Unknown Elliptocytes Not Reportable 02/16/21 Unknown Acanthocytes (Spur) Not Reportable 02/16/21 Unknown Rouleaux Not Reportable 02/16/21 Unknown Hemoglobin C Crystals Not Reportable 02/16/21 Unknown Schistocytes Not Reportable 02/16/21 Unknown Malaria parasites Not Reportable 02/16/21 Unknown Aquiles Bodies Not Reportable 02/16/21 Unknown Hem Pathologist Commnt No 02/16/21 Unknown PT 14.9 Sec. (12.2-14.9) 02/11/21 08:27 INR 1.17 (0.87-1.13) H 02/11/21 08:27 D-Dimer 4840.82 ng/mlDDU (0-234) H 02/19/21 05:45 ABG pH 7.276 (7.320-7.450) L 02/20/21 03:20 POC ABG pCO2 57.3 mmHg (32.0-48.0) H 02/20/21 03:20 ABG pCO2 51.2 mm Hg 02/12/21 04:41 POC ABG pO2 71.0 mmHg (83-108) L 02/20/21 03:20 ABG pO2 69.0 mm Hg (80.0-90.0) L 02/12/21 04:41 POC ABG HCO3 26.1 02/20/21 03:20 ABG HCO3 32.5 mmol/L (20.0-26.0) H 02/12/21 04:41 ABG O2 Saturation 93.7 (0-100) 02/20/21 03:20 ABG O2 Content 4.3 (0.0-44) 02/12/21 04:41 POC ABG Base Excess -1.0 02/20/21 03:20 ABG Base Excess 7.7 mmol/L (-2.0-3.0) H 02/12/21 04:41 ABG Hemoglobin 8.2 (12.0-17.5) L 02/20/21 03:20 ABG Oxyhemoglobin 91.9 (94-98) L 02/20/21 03:20 ABG Carboxyhemoglobin 2.4 % (0.0-5.0) 02/12/21 04:41 ABG Methemoglobin 0.3 (0.0-1.5) 02/20/21 03:20 ABG Sodium 128.1 mmol/L (136.0-145.0) L 02/20/21 03:20 ABG Potassium 4.8 mmol/L (3.40-4.50) H 02/20/21 03:20 ABG Chloride 101.0 mmol/L (98-107) 02/20/21 03:20 ABG Glucose 86 mg/dL (65-95) 02/20/21 03:20 Oxyhemoglobin 94.7 % (95.0-99.0) L 02/12/21 04:41 Carboxyhemoglobin 1.6 (0.5-1.5) H 02/20/21 03:20 FiO2 75 % 02/12/21 04:41 FiO2 % 75.0 02/20/21 03:20 Sodium 136 mmol/L (137-145) L 02/20/21 04:00 Potassium 4.9 mmol/L (3.6-5.0) 02/20/21 04:00 Chloride 98.3 mmol/L (98-107) 02/20/21 04:00 Carbon Dioxide 27 mmol/L (22-30) 02/20/21 04:00 Anion Gap 16 mmol/L 02/20/21 04:00 BUN 69 mg/dL (9-20) H 02/20/21 04:00 Creatinine 6.4 mg/dL (0.8-1.3) H 02/20/21 04:00 Estimated GFR 11 ml/min 02/20/21 04:00 BUN/Creatinine Ratio 11 % 02/20/21 04:00 Glucose 77 mg/dL (75-100) 02/20/21 04:00 POC Glucose 75 mg/dL (70-105) 02/20/21 05:20 Hemoglobin A1c 6.3 % (4-6) H 02/02/21 16:00 Lactic Acid 1.90 mmol/L (0.7-2.0) 01/24/21 14:38 Calcium 8.1 mg/dL (8.4-10.2) L 02/20/21 04:00 Phosphorus 3.90 mg/dL (2.5-4.5) 02/13/21 06:40 Magnesium 1.70 mg/dL (1.7-2.3) 02/16/21 17:09 Ferritin 951.8 ng/mL (30.0-300.0) H 02/19/21 05:45 Total Bilirubin 1.50 mg/dL (0.1-1.2) H 01/26/21 05:47 AST 37 units/L (5-40) 01/26/21 05:47 ALT 29 units/L (7-56) 01/26/21 05:47 Alkaline Phosphatase 70 units/L (35-129) 01/26/21 05:47 Lactate Dehydrogenase 345 units/L (91-180) H 02/19/21 05:45 C-Reactive Protein 15.20 mg/dL (0.00-1.30) H 02/19/21 05:45 Total Protein 7.2 g/dL (6.3-8.2) 01/26/21 05:47 Albumin 2.2 g/dL (3.9-5) L 01/26/21 05:47 Albumin/Globulin Ratio 0.4 % 01/26/21 05:47 Triglycerides 195 mg/dL (2-149) H 02/19/21 05:45 Procalcitonin 18.94 ng/mL (<0.15) 02/16/21 17:09 Arterial Blood Glucose 86 mg/dL (65-95) 02/20/21 03:20 Arterial Blood Ionized Calcium 4.5 mg/dL (4.6-5.3) L 02/20/21 03:20 Urine Color Nehal (Yellow) 01/22/21 22:39 Urine Turbidity Cloudy (Clear) 01/22/21 22:39 Urine pH 5.0 (5.0-7.0) 01/22/21 22:39 Ur Specific [place] 1.017 (1.003-1.030) 01/22/21 22:39 Urine Protein 100 mg/dl mg/dL (Negative) 01/22/21 22:39 Urine Glucose (UA) Neg mg/dL (Negative) 01/22/21 22:39 Urine Ketones Neg mg/dL (Negative) 01/22/21 22:39 Urine Blood Mod (Negative) 01/22/21 22:39 Urine Nitrite Neg (Negative) 01/22/21 22:39 Urine Bilirubin Neg (Negative) 01/22/21 22:39 Urine Urobilinogen 2.0 mg/dL (<2.0) 01/22/21 22:39 Ur Leukocyte Esterase Mod (Negative) 01/22/21 22:39 Urine WBC (Auto) < 1.0 /HPF (0.0-6.0) 01/22/21 22:39 Urine RBC (Auto) < 1.0 /HPF (0.0-6.0) 01/22/21 22:39 U Epithel Cells (Auto) < 1.0 /HPF (0-13.0) 01/22/21 22:39 Urine Osmolality 416 Mosm/kg 01/30/21 12:15 Urine Total Volume 2300 ml 01/30/21 12:00 Urine Creatinine 53.0 mg/dL (0.1-20.0) H 01/30/21 12:00 Ur Creatinine 24 Hour 1.2 (0.8-2.8) 01/30/21 12:00 Urine Sodium 28 mmol/L 01/22/21 22:39 Nasal Screen MRSA (PCR) Negative (Negative) 02/02/21 13:20 Random Vancomycin 13.7 ug/mL (0-40.0) 02/07/21 10:40 Coronavirus (PCR) Positive (Negative) A 02/18/21 10:00 Hepatitis A IgM Ab Non-reactive (NonReactive) 02/03/21 Unknown Hep Bs Antigen Non-reactive (Negative) 02/03/21 Unknown Hep B Core IgM Ab Non-reactive (NonReactive) 02/03/21 Unknown Hepatitis C Antibody Non-reactive (NonReactive) 02/03/21 Unknown Blood Type B POSITIVE 02/17/21 07:45 Antibody Screen Negative 02/17/21 07:45 Crossmatch See Detail 02/17/21 07:45 Black/IV: Voiding Method Incontinent Active Medications - Current Medications Current Medications: Generic Name Dose Route Start Last Admin Trade Name Freq PRN Reason Stop Dose Admin Acetaminophen 650 mg 01/23/21 02:25 02/11/21 18:20 Acetaminophen 650 Mg Rect Supp DE 650 mg Q4H PRN Administration Pain, Mild (1-3) Acetaminophen 650 mg 01/24/21 12:58 02/15/21 18:06 Acetaminophen 325 Mg/10.15 Ml Oral Liqd Unit Dose FEEDTUBE 650 mg Q6H PRN Administration Pain, Mild (1-3) Lipase/Protease/Amylase 1 each 01/26/21 14:25 Lipase 10,500/Protease 25,000/Amylase 43,750 (Units) Dr Cap FEEDTUBE PRN PRN For Clogged Feeding Tube Dextrose 50 ml 01/27/21 07:24 Dextrose 50% In Water (25gm) 50 Ml Syringe IV Q30MIN PRN Hypoglycemia Protocol Fentanyl 50 mcg 01/22/21 22:39 02/10/21 13:46 Fentanyl 100 Mcg/2 Ml Inj IV 50 mcg Q10MIN PRN Administration ANALGESIA Heparin Sodium (Porcine) 2,000 unit 02/11/21 09:38 Heparin 10,000 Units/10 Ml Vial IV SAGRARIO PRN hemodialysis Heparin Sodium (Porcine) 5,000 unit 02/19/21 14:00 02/20/21 13:25 Heparin 5,000 Unit/1 Ml Vial SUB-Q 5,000 unit Q8HR CECE Administration Hydrophilic Ointment 1 applic 01/22/21 22:39 02/17/21 17:14 Lip Therapy Vaseline TP 1 applic Q2HR PRN Administration Dry Lips Fentanyl Citrate 2,000 mcg in 100 mls @ 6.124 mls/hr 01/22/21 23:00 02/20/21 07:22 Fentanyl Drip Premix IV 3 mcg/kg/hr TITR CECE 18.371 mls/hr Administration Protocol 1 MCG/KG/HR Propofol 1,000 mg in 100 mls @ 3.674 mls/hr 01/22/21 23:45 02/20/21 15:39 Diprivan 10 Mg/Ml IV 20 mcg/kg/min TITR CECE 14.696 mls/hr Administration Protocol 5 MCG/KG/MIN Norepinephrine 4 mg in 250 mls @ 7.5 mls/hr 01/28/21 14:00 02/08/21 06:08 Levophed Drip 4 Mg/Ns 250 Ml IV 0 mcg/min TITR CECE 0 mls/hr Titration Protocol 2 MCG/MIN Dexmedetomidine HCl 1,000 mcg/ 260 mls @ 6.368 mls/hr 01/30/21 20:00 02/20/21 06:45 Sodium Chloride IV 1.2 mcg/kg/hr TITRATE CECE 38.211 mls/hr Administration Protocol 0.2 MCG/KG/HR Sodium Chloride 100 mls @ 999 mls/hr 02/15/21 16:45 Nacl 0.9% IV SAGRARIO PRN Hypotension Lansoprazole 30 mg 02/18/21 10:00 02/20/21 09:43 Lansoprazole 30 Mg Solutab FEEDTUBE 30 mg QDAY CECE Administration Multi-Ingred Cream/Lotion/Oil/Oint 1 applic 01/22/21 22:39 02/01/21 09:33 Mineral Oil/Petrolatum, White Ophth Oint 3.5 Gm OU 1 applic Q4HR PRN Administration Dry Eye(s) Ondansetron HCl 4 mg 01/23/21 02:17 Ondansetron 4 Mg/2 Ml Inj IV Q8H PRN Nausea And Vomiting Senna/Docusate Sodium 2 tab 02/17/21 11:00 02/20/21 13:25 Sennosides/Docusate Sodium 8.6/50 Mg Tab PO 2 tab TID CECE Administration Simple Syrup 15 ml 01/26/21 14:25 Simple Syrup 15 Ml FEEDTUBE PRN PRN Hypoglycemia Simple Syrup 30 ml 01/26/21 14:25 Simple Syrup 15 Ml FEEDTUBE PRN PRN Hypoglycemia Sodium Bicarbonate 325 mg 01/26/21 14:25 Sodium Bicarbonate 325 Mg Tab FEEDTUBE PRN PRN For Clogged Feeding Tube Nutrition/Malnutrition Assess - Dietary Evaluation Nutrition/Malnutrition Findings: Nutrition Notes Start: 01/26/21 13:59 Freq: Status: Active Protocol: Document 02/19/21 13:29 CW (Rec: 02/19/21 13:34 CW [id number]) Nutrition Notes Initial or Follow up Reassessment Current Diagnosis Acute Kidney Injury,Diabetes, Sepsis,Hypertension, Respiratory Failure, Hyperlipidemia Other Pertinent Diagnosis on HD, COVID-19 (+), bilat pneu Current Diet TF - Nepro at 36 ml/hr Labs/Tests Na 135 BUN 58 Cr 5.6 Pertinent Medications propofol at 11.022 (provided 291 kcal) Senna Mg Citrate Height 5 ft 8 in Weight 162 kg [place] Body Weight (kg) 70.00 BMI 54.3 Weight change and time frame wt stable Weight Status Morbidly Obese Subjective/Other Information F/U for Na labs and TF tolerance. Pt continues to tolerate TF regimen at goal. Pt continues to not have a BM. RN treating with Rx. Pt remains of mechanical vent. Percent of energy/protein needs met: 80%/61% Burn Absent Trauma Absent GI Symptoms Constipation Difficulty In Swallowing Skin Integrity/Comment pressure ulcer to lips Current % PO Negligible Minimum of two criteria No Fluid Accumulation Moderate to Severe (severe) #2 Nutrition Diagnosis Increased nutrient needs ( specify in comment below) Comments: protein Diagnosis Progress(for reassessment Continues documentation) #1 Nutrition Diagnosis Inadequate oral intake Diagnosis Progress(for reassessment Continues documentation) Is patient on ventilator? Yes Is Patient Ambulatory and/or Out of Bed No REE-([place]-confined to bed) 2877.408 Kcal/Kg value to use for calculation 12 Approximate Energy Requirements Using 1944 kcal/Kg Calculation Used for Recommendations Kcal/kg Additional Notes Pro needs >1.2g/kg adjBW: > 115g/day for HD needs Fluid needs 500+ total output or per MD Nutrition Intervention Change Diet Order: Continue TF Nutrition Support: Nepro at 46 ml/hr with a free water flush of 125 ml q4h for hyponatremia. Resume flush of 200 ml q4h once hyponatremia resolved. Kcal 1,987 Protein (gm) 89 Fluid (mL) 803 Goal #1 TF tolerance Goal #2 TF to meet at least 75% energy and pro needs Anticipated Discharge Needs: unable to determine at this time Follow-Up By: 02/24/21 Additional Comments F/U for TF tolerance
[2021-02-21] MEDS: dexmedeTOMIDine 1,000 MCG in SODIUM CHLORIDE 0.9% 250ML 250 ML IV SCH (01:04)
[2021-02-21] MEDS: fentaNYL DRIP Premix 2,000 MCG/100 ML BAG IV SCH ×2 (05:00→12:44)
[2021-02-21] MEDS: HEPARIN 5,000 UNIT/1 ML VIAL SUB-Q SCH ×2 (06:41→15:26)
--- NOTE | 2021-02-21 08:22 | Progress Note ---
Assessment and Plan Sepsis-resolved patient now on trach. Initiate placement. COVID-19 pneumonia Coag-neg Staph bacteremia Acute hypoxic respiratory failure-status post tracheostomy. Can plan discharge more effectively. Acute kidney injury, HD initiated 4/tolerated hemodialysis well. Anemia Hyponatremia Hypochloremia Diabetes mellitus Hypertension Hyperlipidemia Chronic renal insufficiency Elevated D-dimer -CCM, nephrology, infectious disease, GI consulted, appreciate recommendations -s/p Antibiotic therapy, remdesivir -COVID-19 PCR positive, Pneumonia on CXR -Steroid therapy -Mechanical ventilation, wean as tolerated -VAP bundle -HD per nephrology -S/p 4 units PRBC during stay -Trend BMP, CBC, COVID-19 inflammatory markers -Bilateral lower extremity and upper extremity Doppler ultrasound negative for DVT/SVT -SSI and Long-acting insulin -Accu-Cheks every 6 while on tube feedings -Hold home antihypertensive regimen for now as he is still needing vasopressor support -Blood pressure monitoring per protocol -S/p NaHCO3 gtt -02/17 CT head showed no acute intracranial abnormality, paranasal sinus disease -Bowel regimen DVT/GI prophylaxis: SCDs to bilateral lower extremities while in bed, PPI, heparin subq Dispo: ICU The high probability of a clinically significant, sudden or life threatening deterioration of the [multi] system(s) required my full and direct attention, intervention and personal management. The aggregate critical care time was [32] minutes. This time is in addition to time spent performing reported procedures but includes the following: [x] Data Review and interpretation [x] Patient assessment and monitoring of vital signs [x] Documentation [x] Medication orders and management Subjective Date of service: 02/21/21 Principal diagnosis: DEISI Interval history: This is a 60-year-old male with diabetes mellitus, hypertension, hyperlipidemia, chronic renal insufficiency presents to the emergency department on 01/23 with shortness of breath, fevers chills, loss of smell and taste and body aches for the past 3 days via EMS. Per EMS patient's oxygen saturation on room air was 50% and after being placed on nonrebreather it increased 75%. Upon arrival to the emergency department patient was being bagged by EMS. In the emergency room patient was intubated due to severe hypoxia, increased work of breathing and lethargy. Patient was sedated on propofol and fentanyl. Patient presented with fever, tachycardia, tachypnea and acute hypoxic respiratory failure with PNA on CXR meeting Sepsis criteria. Lab work in the emergency department revealed hyponatremia, hypokalemia, hypochloremia, elevated CR/BUN and CXR showed bilateral pneumonia. Patient was admitted to the hospital service as a COVID-19 PUI with consults to infectious disease, nephrology and critical care medicine. 01/24/2021: Patient is intubated and sedated, patient is positive for COVID-19 infection. ID was consulted and put on dexamethasone and remdesivir. Patient has DEISI and nephrology is following. Creatinine stable, patient is urinating. Discussed with nephrology and he is okay with remdesivir. Pulmonary critical care is following for his vent setting. PEEP of 8 and FiO2 of 85%. Patient was alert and off sedatives. 01/25/2021; patient is intubated and on mechanical ventilation. Continue with treatment of Covid. Nephrology and ID is following. Pulmonary is following for vent management 01/26: Remains on mechanical ventilation and [facility] increased his PEEP. [facility] has ordered Precedex for sedation. Possibly need to prone this p.m. No acute events reported overnight. This morning his D-dimer is greater than 10,000 and we have started him on Lovenox 120 mg daily. Nutrition has been consulted for initiation of tube feedings. Patient remains sedated on propofol 40 and fentanyl for the time my examination this morning. 01/27: Continue Lovenox, remdesivir and empiric antibiotics. Patient had a T-max of 101 overnight. The time of examination patient is on CMV 500/18/14/0.61. Kidney function slightly worsened. Sedated on fentanyl ground-level fall and Precedex. Nephrology has increased IV fluids to 100 ml/hr. Continue to trend BMP and CBC. Sedation vacation attempt by RN this AM. 01/28: Patient completed antibiotics today [facility] will paralyze patient and increase sedation. PICC line ordered for possible vasopressor therapy need. Patient's D-dimer remains greater than 10,000 and he still has hyperchloremia. Patient's kidney function has improved today. May need to prone the patient if no improvement in oxygenation is noted in the next 24 hours. The time of my examination patient is sedated with propofol, fentanyl and Precedex and is on assist control 500/18/16/0.80 hypoxic on ABG on 60% FiO2. 01/29: Patient was started on Nimbex yesterday and his ABG this morning showed respiratory acidosis with hypercapnia and his respiratory rate was increased. We will obtain a repeat ABG this afternoon. This morning patient is hypernatremic, hyperkalemic and hyperchloremic. His potassium has been correct ed with the management and will obtain repeat BMP tomorrow. His kidney functions have remained stable and we will await nephrology's input. No acute events reported overnight. This morning the time my examination patient sedated with propofol, Precedex and fentanyl and paralyzed with Nimbex. He is on assist control 500/24/16 0.80. 01/30: This morning patient is hypokalemic again and was given Kayexalate. Patient has hypernatremia and hyper chloremia and his renal function is slightly worse after receiving Lasix yesterday. His D-dimer remains greater than 10,000 and he is still on a paralytic. Patient is sedated on Precedex, fentanyl, propofol. Mechanical ventilation settings seven-point //28. [facility] has decided to continue paralytics for 48 more hours and will attempt proning the patient. Increased free water flushes 300 cc every 4 hours. Patient states has restarted his antibiotics cefepime and vancomycin and recultured. 01/31/21 Hyperkalemia, Treated 02/01/21 Hyperkalemia, Treated 02/02: Patient's kidney function continues to worsen and a stat BMP this morning shows BUN/creatinine 20/6.1 and he remains hypocalcemic and hypernatremic, hypokalemic and hypochloremic. Patient received 2 g of calcium gluconate and Kayexalate and his repeat potassium was 4.3 this afternoon. He remains antibiotic therapy and steroids. Nephrology has placed the patient on bicarb drip given metabolic acidosis and has decided to hold off hemodialysis till tomorrow.The time my examination patient is sedated on fentanyl, Precedex and on assist control 500/20/12/0.70. s/p paralytic. 02/03: Today patient's ABG shows respiratory acidosis however it is improving, hypernatremia, hyperchloremia, metabolic acidosis on BMP, worsening kidney function BUN/creatinine 130/9.2 with hyperphosphatemia. Patient received a Vas- Cath to his right IJ for initiation of dialysis. At the time of my examination patient remains sedated on fentanyl, propofol and Precedex with vasopressor support with Levophed at 2. 02/04: At the time of examination patient was on assist control tidal volume 500, rate 40, PEEP of 12, FiO2 85%. Patient had a T-max of 100.9 and infectious disease has stopped his vancomycin given negative MRSA. This afternoon patient respiked his temperature and was pancultured again. Patient was started on hemodialysis yesterday and will receive HD again today. Patient is sedated on Precedex, propofol, fentanyl and remains on Levophed. He is on assist control tidal volume 500, rate of 30, PEEP of 12, FiO2 of 85%. Patient still has some respiratory acidosis however his hypernatremia and hyperchloremia have improved and his metabolic acidosis has resolved. Patient will receive hemodialysis today 02/05: Patient continues to have low-grade fever temp this morning time examinat ion he was on assist control tidal volume 500, and sedated on propofol/fentanyl/Precedex and is on Levophed. Hemodialysis per nephrology. Antibiotics per ID. Patient's blood culture from 02/04 grew gram-positive cocci in clusters in 1/2 bottles and he was started on vancomycin. 02/06: Patients ABG showed respiratory acidosis and the tracings were changed however a repeat ABG showed showed acidosis.[facility] will start a bicarb drip after giving 2 amps of bicarb push. Yesterday patient blood cultures grew gram- positive cocci and he was started on vancomycin. At the time my examination patient was on assist control tidal volume 550, rate 34, PEEP 16, FiO2 90% and sedated on fentanyl, Precedex, propofol elevated pressure support with Levophed. Bilateral lower extremity Doppler ultrasounds done yesterday showed no evidence of DVT/SVT. 02/07/2021; patient is still on the vent with PEEP of 16 and FiO2 of 90%, sedated with fentanyl Precedex and propofol. Patient still requiring Levophed. Patie nt was sedated yesterday and was given bicarb push. Blood culture grew gram- positive cocci in clusters and he is on vancomycin, will follow identification. 02/08/2021;patient is still on the vent with PEEP of 16 and FiO2 of 90%, sedated with fentanyl Precedex and propofol. Patient still requiring Levophed. Patient was sedated yesterday and was given bicarb push. Blood culture grew gram-positive cocci in clusters and he is on vancomycin, will follow identification. Patient is currently on dialysis. Patient is anemic transfuse if hemoglobin is below 7. 12: This morning patient has slight hypokalemia, hypochorlemia, hyponatremia and metabolic alkalosis. [facility] will continue bicarb gtt given that the patient does not have HD access at this time. We will replete the potassium and recheck BMP in the AM. We will type and cross in anticipation of PRBC transfusion. This morning he is sedated on Ativan, fentayl, and precedex. Will obtain a triglyceride level today in hopes to resume propofol. Patient is alkalotic and BMP however we will continue with bicarb drip per [facility] given that the patient does not have any access for hemodialysis. Anticipate replacing hemodialysis catheter tomorrow or Tuesday. The time my examination he is on AC TV 550, Rate 34, PeeP 16, FiO2 .65. 02/10: A.m. labs still pending, [facility] plans to replace HD catheter tomorrow as the patient is still febrile however his fever curve is trending down, remains on a bicarb drip and on vancomycin. Today at the time my examination patient was sedated on Precedex, Ativan and fentanyl and he is on assist control tidal 11/04/1951, rate 34, PEEP 16, FiO2 65%. Overnight patient was hypotensive and received 1 dose of midodrine. 02/11: Patient is still having low-grade temperatures that we will obtain a bilateral lower upper extremity venous Doppler ultrasound given that his repeat cultures have been negative so far. Patient received a Vas-Cath today for hemodialysis. The time examination patient is on assist control tidal volume 550, rate of 34, PEEP of 16 and FiO2 of 75%. Patient was hypokalemic and anemic yesterday which were both repleted with potassium and 1 unit PRBC. 02/12: 02/12: Patient had a 12-second run of V. tach today, his potassium and magnesium were low which was repleted. Renal adjusted potassium bath. We will obtain a triglyceride level in hopes to restarting to prevent as needed. This morning at the time my examination patient was sedated on fentanyl, Ativan and Precedex and remained on a bicarb drip. He was on assist control tidal volume 550, rate 34, PEEP 16, FiO2 85%. We will obtain a occult stool given no evident source of bleeding and need for transfusion. Anemia possibly due to hemodialysis. 02/13: Patient's T-max was 100.7, remains on fentanyl, Ativan, Precedex and bicarb drip this morning at some examination on assist control tidal volume 550, rate 34, PEEP 16 and FiO2 85%. On the labs this morning is slightly hypokalemic and remains metabolic alkalotic on BMP. His occult was positive. His Lovenox and consult GI. Patient received hemodialysis today. 02/14: cont PPI, GI recommended to scope now, monitor clinically, tolerating TF, remains intubated. Hb 6.9 today - transfuse another unit. very poor prognosis. 02/15: H&H appears to be stable following 1 unit of transfusion yesterday. Continue to hold heparin and aspirin products. Continue to monitor clinically. Poor prognosis. Wean off from vent as tolerated. 02/16: Infectious disease has signed off, his Ativan drip was discontinued and to prevent drip will be started when patient needs it. T-max 100.6 yesterday afternoon. He received hemodialysis today and at the time my examination was still on mechanical ventilation assist control tidal volume 550, rate 34, PEEP 16 on 70% FiO2. Patient was sedated on fentanyl dexamethasone and Ativan. No acute events reported overnight. 02/17: This morning patient was scheduled to get 2 units PRBC however his repeat H/H after 1 unit PRBC was 7.6/22.8 and the width of the second unit PRBC. This morning patient was sedated on fentanyl, propofol, Precedex and on assist control tolerated by 50, rate 34, PEEP of 16, FiO2 35%. Wound care was co nsulted today for his upper lip wound. Nephrology continues to withhold dialysis. No acute events reported overnight. Dr. Adkins was unable to contact family for updates. 02/18: Family updated by Dr. Adkins and Dr. Reddy. Patient had a hemodialysis today. The time my examination patient was on assist control tidal volume 550, rate 34, PEEP 16 and FiO2 35%. Overnight patient had a CT head and he was placed on 3% FiO2 and took "a long time to recover" per RN report. 02/19: Patient's D-dimer is trending up therefore he was started on prophylactic anticoagulation, no bowel movement for several days so he was started on mag citrate today. The time examination patient is sedated on Precedex 1.2, fentanyl 3, propofol 20 on assist control tidal volume 550, rate 34, PEEP 16, 80% FiO2 and on his ABG his PaO2 is 106. RT will try to wean as tolerated. Repeat COVID-19 PCR today was positive.Dr. Adkins updated the family today. 02/20: Patient received hemodialysis today. In the time my examination patient was sedated on Precedex, fentanyl, propofol and on assist control tidal line 550, rate 34, PEEP of 16 and 75% FiO2. Patient had a bowel movement yesterday. 02/21 patient tolerated hemodialysis yesterday. Tolerated tracheostomy. Patient is alert no concerns able to mouth denies pain. Objective - Constitutional Vitals: Vital Signs - 12hr 02/20/21 02/20/21 02/20/21 20:30 20:40 21:00 Temperature Pulse Rate 98 H 97 H 99 H Pulse Rate [ From Monitor] Respiratory 35 H 36 H Rate Blood Pressure 136/55 136/55 129/64 O2 Sat by Pulse 95 97 Oximetry 02/20/21 02/20/21 02/20/21 21:30 22:00 22:30 Temperature Pulse Rate 100 H 100 H 101 H Pulse Rate [ From Monitor] Respiratory 36 H 35 H 36 H Rate Blood Pressure 132/64 128/67 129/67 O2 Sat by Pulse 94 100 96 Oximetry 02/20/21 02/20/21 02/20/21 23:00 23:12 23:30 Temperature Pulse Rate 100 H 99 H 99 H Pulse Rate [ From Monitor] Respiratory 35 H 36 H 35 H Rate Blood Pressure 132/67 132/67 132/63 O2 Sat by Pulse 94 95 Oximetry 02/20/21 02/21/21 02/21/21 23:53 00:00 00:30 Temperature 100.1 F H Pulse Rate 96 H 96 H Pulse Rate [ 96 H From Monitor] Respiratory 36 H 35 H Rate Blood Pressure 126/58 125/62 O2 Sat by Pulse 94 Oximetry 02/21/21 02/21/21 02/21/21 00:33 01:00 01:30 Temperature Pulse Rate 96 H 95 H 98 H Pulse Rate [ From Monitor] Respiratory 36 H 34 H Rate Blood Pressure 125/62 121/57 117/69 O2 Sat by Pulse 95 93 96 Oximetry 02/21/21 02/21/21 02/21/21 02:00 02:30 03:00 Temperature Pulse Rate 97 H 98 H 100 H Pulse Rate [ From Monitor] Respiratory 35 H 34 H 34 H Rate Blood Pressure 133/70 138/72 135/74 O2 Sat by Pulse 96 97 94 Oximetry 02/21/21 02/21/21 02/21/21 03:30 04:00 04:30 Temperature 99.5 F Pulse Rate 100 H 101 H 100 H Pulse Rate [ 103 H From Monitor] Respiratory 35 H 34 H 35 H Rate Blood Pressure 141/76 140/74 150/72 O2 Sat by Pulse 93 93 94 Oximetry 02/21/21 02/21/21 02/21/21 04:35 05:00 05:30 Temperature Pulse Rate 100 H 103 H 103 H Pulse Rate [ From Monitor] Respiratory 35 H 35 H Rate Blood Pressure 143/76 137/79 O2 Sat by Pulse 96 94 100 Oximetry 02/21/21 02/21/21 06:00 06:30 Temperature Pulse Rate 104 H 103 H Pulse Rate [ From Monitor] Respiratory 35 H 34 H Rate Blood Pressure 142/74 127/61 O2 Sat by Pulse 96 96 Oximetry General appearance: Present: no acute distress - EENT ENT: other (Tracheostomy successful.) - Respiratory Respiratory: bilateral: CTA - Breasts Breasts: deferred - Cardiovascular Rhythm: regular Extremities: pulses intact, No edema, normal color, Full ROM Extremity abnormal: edema, other (Edema hands only) - Gastrointestinal General gastrointestinal: Present: soft, non-tender, non-distended, normal bowel sounds - Musculoskeletal Musculoskeletal: generalized weakness - Neurologic Neurologic: moves all extremities - Psychiatric Psychiatric: memory intact, appropriate mood/affect, intact judgment & insight - Labs CBC & Chem 7: 02/18/21 05:02 02/21/21 16:35 Labs: Abnormal lab results 02/20/21 02/20/21 02/20/21 Range/Units 11:48 18:05 23:28 ABG pH (7.320-7.450) POC ABG pCO2 (32.0-48.0) mmHg POC ABG pO2 (83-108) mmHg ABG Hemoglobin (12.0-17.5) ABG Oxyhemoglobin (94-98) ABG Sodium (136.0-145.0) mmol/L ABG Potassium (3.40-4.50) mmol/L ABG Glucose (65-95) mg/dL Carboxyhemoglobin (0.5-1.5) POC Glucose 131 H 114 H 118 H (70-105) mg/dL Arterial Blood Glucose (65-95) mg/dL Arterial Blood Ionized Calcium (4.6-5.3) mg/dL 02/21/21 02/21/21 Range/Units 02:53 05:29 ABG pH 7.288 L (7.320-7.450) POC ABG pCO2 52.7 H (32.0-48.0) mmHg POC ABG pO2 81.5 L (83-108) mmHg ABG Hemoglobin 8.5 L (12.0-17.5) ABG Oxyhemoglobin 93.6 L (94-98) ABG Sodium 132.5 L (136.0-145.0) mmol/L ABG Potassium 4.6 H (3.40-4.50) mmol/L ABG Glucose 106 H (65-95) mg/dL Carboxyhemoglobin 1.6 H (0.5-1.5) POC Glucose 111 H (70-105) mg/dL Arterial Blood Glucose 106 H (65-95) mg/dL Arterial Blood Ionized Calcium 4.4 L (4.6-5.3) mg/dL HEART Score - HEART Score Risk factors: 1-2 risk factors Troponin: < normal limit - Critical Actions Critical Actions: 0-3 pts:0.9-1.7%risk of adverse cardiac event.Candidate for discharge
[2021-02-21] MEDS: SENNOSIDES/DOCUSATE SODIUM 8.6/50 MG TAB PO SCH ×2 (10:13→15:26)
[2021-02-21] MEDS: LANSOPRAZOLE 30 MG SOLUTAB FEEDTUBE SCH (10:13)
--- NOTE | 2021-02-21 12:04 | Progress Note ---
Assessment and Plan 60 y/o male with ARDS secondary most likely to COVID 19 pneumonia. 02/21/21: Continue to wean FiO2 for sats >88%. Down to 70 now and tolerating. Diprovan is off, nursing working to wean others as well. Can hold on triglycerides now that diprovan is off. Guarded prognosis. 02/20/21: HD today, goal is 3 liters. Continue sedation, did have to increase Diprovan but this is ok. Will need to check levels soon. BM complete. Continue prophylactic anticoagulation. Guarded prognosis. 02/19/21: HD per renal, likely tomorrow. Continue sedation. Has not had a BM so will give full dose of mag citrate today. STarted prophylactic an ticoagulation. Wean FiO2 as tolerated. Will call family tomorrow. 02/18/21: HD per renal. continue sedation to help with oxygenation. Overall prognosis remains very guarded to poor. [facility] has been speaking with family so will defer to them. Currently patient is not a candidate for trach given his oxygen and peep requirements. 02/17/21: Fine with cutting back on HD as not really helped with oxygenation. Continue to wean as tolerated for sats >88% and PaO2 >55. Sedation to achieve negative rass scoring. very very guarded to poor prognosis. 02/16/21: HD now. Wean FiO2 for sats> 88%. Agree with stopping ativan and holding on starting diprovan to see if the patient truly needs it. pH holding off bicarb drip goal is >7.2. Very very guarded to poor prognosis. 02/13/21: HD again now. Replace electrolytes per renal. Continue abx therapy per ID. Will get RT to wean FiO2 as not done on yesterday. Will restart diprovan post HD and stop ativan. Check Levels (Triglycerides on Tue or Tuesday). Can stop bicarb drip however must make sure that ABG is checked daily to make sure that pH is good. Very very guarded prognosis. 02/12/21: HD again today. Had a 12 second run of VTACH today as well. Stable. K is low, checking mag levels. Will alert Renal so they can adjust bath as needed. Post HD will start to wean FiO2 again. Unable to prone as patient does not tolerate. Repeat blood cultures negative and first set only showing Coag Negative Staph. Prognosis still remains very very guarded to poor. Will consider restarting Diprovan tomorrow. Patient now intubated for 20 days now but not candidate for trach yet given elevated PEEP and FiO2 levels but did discuss on rounds. 02/11/21: Vascath placed today for HD. Orders already in. Wean FiO2 for sats >88%. Abx per ID. Repeat cultures so far negative. Given persistent fevers, will check upper ext dopplers. Prognosis still remains guarded. 02/10/21: Triglycerides improved but current sedation is adequate so will hold on stopping ativan to add propofol back. Awaiting Labs from this morning. Plan to replace HD catheter tomorrow morning as early as possible. Fever curve is trending down. Continue bicarb drip for now. Prognosis remains guarded. WIll speak with family tomorrow to update. 02/09/21: Repeat Triglycerides today. Follow up repeat blood cultures. Given continued fever will hold on replacing vascath today. If fever free the next 24 hours, can place in the morning or Tuesday morning. Will likely need blood with next HD session. Continue bicarb drip to help manage respiratory as well as metabolic acidosis. Wean FiO2 for sats >88% and PaO2 >55. Overall prognosis remains guarded to poor. 02/08/21: Picc out today. Will repeat culture if patient spikes again today. Plan to replace HD catheter either late tomorrow or Tuesday. Continue current level of sedation. Abx therapy per ID. Wean FiO2 as tolerated, doubt will be able to do much until we can resume HD. Guarded prognosis. Replaced potassium. Will need to check in the morning. Will repeat K later this afternoon. 02/07/21: Biggest issue now is that patient's numbers are better with HD but now with bacteremia, concern for line infection. ID is correct in requesting line holiday. Has a picc and an Right IJ Dialysis catheter with 3 ports. Currently getting HD today. Have not seen renal yet. Will pull right IJ line post HD and plan to replace it Tuesday evening or Tuesday. Continue bicarb drip for now and will keep picc as patient has been requiring levophed. If able to be weaned off levophed, will remove picc either tomorrow or Tuesday. Continue Ativan, Precedex and Fent drips, repeat Triglycerides on Tuesday. Very very guarded prognosis. Will remove Black today as well. 02/06/21: Will add bicarb drip at 125/hr. Giving 2 amps of NaHCO3 push now. Will repeat ABG this afternoon, may just ask for Art Line if possible. HD today per renal and I spoke with them about the bicarb drip. Long discussion with Sister, Significant and other and another family member on the phone on yesterday. I tried my best to explain the severity of the clinical state but not sure if they fully understood. The patient is very very ill and history suggests that his outcome will be poor (intubated with covid and renal failure on dialysis). This was expressed with the family. Will continue all supportive measures. Checking triglyceride levels today. 02/05/21: WIll increase PEEP to 16. Can increase pressors if needed for BP control during HD. Follow up cultures. If negative will scan legs and arms again for VTE. Repeat ABG at 1400 today. Will speak with sister and Girlfriend on phone today. 02/04/21: HD again today per renal notes. Likely will need daily HD. New fevers. Will draw blood and urine cultures if able to still make urine.. Repeat CXR. May need to check dopplers if all of those studies are negative. Wean FIO2 as tolerated. Unable to tolerate proning. Guarded to poor prognosis. 02/03/21: HD today per renal. Wean FiO2 as tolerated. No further proning as patient cannot tolerate it, however with volume removal, may consider in the future. Use pressors to keep MAPs 65 and greater for HD purporses so volume can be removed. (IJ was wide open (filled with blood)) with patient sitting up at 45 degrees. Guarded prognosis. 02/02/21: After renal speaks with family, will place vascath today. Agree with bicarb drip but will order some pushes now to help with pH. Overall prognosis is very very guarded to poor now that patient is COVID positive and requiring renal replacement therapy. Mortality is very high in these patients. Continue steroid therapy. Unable to tolerate proning. 01/30/21: Will plan for proning later today. Goal will be at least 12hrs but long is okay. Speaking with pharmacy to see if we can get paralytic for a longer period of time. Regardless will prone. Continue heavy sedation. BP stable. Co ntinue steroids. Very very guarded prognosis. 01/29/21: will increase tidal volume and/or increase respiratory rate. Repeat ABG this afternoon. Continue paralytic and adequate sedation. Continue steroid and remdesivir, follow up any renal recs. Prognosis remains guarded. Wean Fio2 for sats >88% 01/28/21: Increased PEEP to 16. Will paralyze patient today and increase sedation. Ordering picc line for possible vasopressor therapy needs. Continue BID steroids. Renal function is slightly better today with fluids but could be making oxygenation worse. Not able to diurese. Still making urine. Continue Remdesivir. Watch for fever curve. If not improvement in the next 24 hours with paralyzing, will prone tomorrow morning. 01/27/21: Continue PEEP at 14. No weaning until FiO2 is at or below 40-45%. Continue anticoagulation. Getting Remdesivir now. Continue BID steroids. Renal has increased the fluids. Monitor urine output and renal function. Overall prognosis is very very guarded, especially if renal status worsens. 01/26/21: Increase PEEP to 14. Will add Precedex therapy. If patient does not respond to increases in PEEP may need to prone. Will place patient on lovenox and will feed patient. Remdesivir coming. Continue BID steroids. Prognosis is guarded. 01/25/21: Hold on proning today. Continue BID steroids. ABG this AM was adequate. Pending abg tomorrow, may increase PEEP if not able to wean FiO2 any further. Per charting Remdesivir to arrive tomorrow. Guarded prognosis. 01/24/21: Continue BID steroids. No abg done this am but able to wean FiO2. Will obtain ABG in the am. Hold on proning for right now. Renal following, would like to diurese but they are given fluids for deisi. Agree with ID assessment and note. Guarded prognosis. 1. Increase steroids to BID given size 2. Check with ID to see if he is a candidate for remdesivir or any other experiemental therapy 3. Hold on proning for right now 4. Renal consulted and giving IVF's currently Guarded prognosis. CCT 31 minutes. Subjective Date of service: 02/21/21 Principal diagnosis: DEISI Interval history: No acute events. Still on vent. FiO2 now at 70. PaO2 on 75 was good. Objective Vital Signs - 12hr 02/21/21 02/21/21 02/21/21 00:30 00:33 01:00 Temperature Pulse Rate 96 H 96 H 95 H Pulse Rate [ From Monitor] Respiratory 35 H 36 H Rate Blood Pressure 125/62 125/62 121/57 O2 Sat by Pulse 95 93 Oximetry 02/21/21 02/21/21 02/21/21 01:30 02:00 02:30 Temperature Pulse Rate 98 H 97 H 98 H Pulse Rate [ From Monitor] Respiratory 34 H 35 H 34 H Rate Blood Pressure 117/69 133/70 138/72 O2 Sat by Pulse 96 96 97 Oximetry 02/21/21 02/21/21 02/21/21 03:00 03:30 04:00 Temperature 99.5 F Pulse Rate 100 H 100 H 101 H Pulse Rate [ 103 H From Monitor] Respiratory 34 H 35 H 34 H Rate Blood Pressure 135/74 141/76 140/74 O2 Sat by Pulse 94 93 93 Oximetry 02/21/21 02/21/21 02/21/21 04:30 04:35 05:00 Temperature Pulse Rate 100 H 100 H 103 H Pulse Rate [ From Monitor] Respiratory 35 H 35 H Rate Blood Pressure 150/72 143/76 O2 Sat by Pulse 94 96 94 Oximetry 02/21/21 02/21/21 02/21/21 05:30 06:00 06:30 Temperature Pulse Rate 103 H 104 H 103 H Pulse Rate [ From Monitor] Respiratory 35 H 35 H 34 H Rate Blood Pressure 137/79 142/74 127/61 O2 Sat by Pulse 100 96 96 Oximetry 02/21/21 02/21/21 02/21/21 07:00 07:30 08:00 Temperature 98.7 F Pulse Rate 102 H 101 H 100 H Pulse Rate [ From Monitor] Respiratory 36 H 34 H 35 H Rate Blood Pressure 113/57 120/62 140/72 O2 Sat by Pulse 92 100 96 Oximetry 02/21/21 02/21/21 02/21/21 08:30 09:00 09:30 Temperature Pulse Rate 100 H 104 H 109 H Pulse Rate [ From Monitor] Respiratory 33 H 29 H 34 H Rate Blood Pressure 119/60 132/70 129/75 O2 Sat by Pulse 96 97 93 Oximetry 02/21/21 02/21/2121 10:00 10:30 11:00 Temperature Pulse Rate 111 H 112 H 115 H Pulse Rate [ From Monitor] Respiratory 33 H 34 H 37 H Rate Blood Pressure 139/72 147/70 157/81 O2 Sat by Pulse 100 94 91 Oximetry 02/21/21 11:44 Temperature Pulse Rate 119 H Pulse Rate [ From Monitor] Respiratory Rate Blood Pressure 161/81 O2 Sat by Pulse 95 Oximetry Constitutional: comatose Eyes: non-icteric ENT: other (orally intubated and sedated) Neck: supple Effort: mildly labored Ascultation: Bilateral: clear Percussion: Bilateral: not dull Cardiovascular: regular rate and rhythm (no mrg) Gastrointestinal: normoactive bowel sounds, soft, non-tender, non-distended Integumentary: normal Extremities: no cyanosis, no edema, pink and warm Neurologic: unable to assess CBC and BMP: 02/18/21 05:02 02/20/21 04:00 ABG, PT/INR, D-dimer: ABG ABG pH 7.288 (7.320-7.450) L 02/21/21 02:53 POC ABG pCO2 52.7 mmHg (32.0-48.0) H 02/21/21 02:53 ABG pCO2 51.2 mm Hg 02/12/21 04:41 POC ABG pO2 81.5 mmHg (83-108) L 02/21/21 02:53 ABG pO2 69.0 mm Hg (80.0-90.0) L 02/12/21 04:41 POC ABG HCO3 24.7 02/21/21 02:53 ABG O2 Saturation 95.4 (0-100) 02/21/21 02:53 PT/INR, D-dimer PT 14.9 Sec. (12.2-14.9) 02/11/21 08:27 INR 1.17 (0.87-1.13) H 02/11/21 08:27 D-Dimer 4840.82 ng/mlDDU (0-234) H 02/19/21 05:45 Abnormal lab findings: Abnormal Labs 01/22/21 01/22/21 01/22/21 22:39 22:57 22:57 WBC RBC Hgb Hct MCV MCH MCHC RDW Plt Count Lymph % (Auto) 6.6 L Lymph # (Auto) 0.5 L Seg Neutrophils % 87.6 H Seg Neuts % (Manual) Lymphocytes % (Manual) Nucleated RBC % Seg Neutrophils # Seg Neutrophils # Man Lymphocytes # (Manual) Eosinophils # (Manual) INR D-Dimer ABG pH POC ABG pCO2 POC ABG pO2 ABG pO2 ABG HCO3 ABG O2 Saturation ABG Base Excess ABG Hemoglobin ABG Oxyhemoglobin ABG Sodium ABG Potassium ABG Chloride ABG Glucose Oxyhemoglobin Carboxyhemoglobin Sodium 129 L Potassium 3.4 L Chloride 90.4 L Carbon Dioxide BUN 34 H Creatinine 1.5 H Glucose 146 H POC Glucose Hemoglobin A1c Lactic Acid Calcium 7.8 L Phosphorus Magnesium Ferritin Total Bilirubin AST 75 H ALT 57 H Lactate Dehydrogenase C-Reactive Protein Albumin 2.9 L Triglycerides Arterial Blood Glucose Arterial Blood Ionized Calcium Urine Creatinine 301.2 H Coronavirus (PCR) Crossmatch 01/22/21 01/22/21 01/22/21 22:57 22:57 22:57 WBC RBC Hgb Hct MCV MCH MCHC RDW Plt Count Lymph % (Auto) Lymph # (Auto) Seg Neutrophils % Seg Neuts % (Manual) Lymphocytes % (Manual) Nucleated RBC % Seg Neutrophils # Seg Neutrophils # Man Lymphocytes # (Manual) Eosinophils # (Manual) INR D-Dimer 1173.89 H ABG pH POC ABG pCO2 POC ABG pO2 ABG pO2 ABG HCO3 ABG O2 Saturation ABG Base Excess ABG Hemoglobin ABG Oxyhemoglobin ABG Sodium ABG Potassium ABG Chloride ABG Glucose Oxyhemoglobin Carboxyhemoglobin Sodium Potassium Chloride Carbon Dioxide BUN Creatinine Glucose 149 H POC Glucose Hemoglobin A1c Lactic Acid 2.10 H* Calcium Phosphorus Magnesium Ferritin Total Bilirubin AST ALT Lactate Dehydrogenase 685 H C-Reactive Protein 30.40 H Albumin Triglycerides Arterial Blood Glucose Arterial Blood Ionized Calcium Urine Creatinine Coronavirus (PCR) Crossmatch 01/22/21 01/23/21 01/23/21 22:57 08:41 10:01 WBC RBC Hgb Hct MCV MCH MCHC RDW Plt Count Lymph % (Auto) Lymph # (Auto) Seg Neutrophils % Seg Neuts % (Manual) Lymphocytes % (Manual) Nucleated RBC % Seg Neutrophils # Seg Neutrophils # Man Lymphocytes # (Manual) Eosinophils # (Manual) INR D-Dimer ABG pH POC ABG pCO2 POC ABG pO2 ABG pO2 ABG HCO3 ABG O2 Saturation ABG Base Excess ABG Hemoglobin ABG Oxyhemoglobin ABG Sodium ABG Potassium ABG Chloride ABG Glucose Oxyhemoglobin Carboxyhemoglobin Sodium 131 L Potassium Chloride 88.7 L Carbon Dioxide 18 L BUN 36 H Creatinine 1.6 H Glucose 147 H POC Glucose Hemoglobin A1c Lactic Acid Calcium 7.5 L Phosphorus Magnesium Ferritin 1207.0 H Total Bilirubin AST ALT Lactate Dehydrogenase C-Reactive Protein Albumin Triglycerides Arterial Blood Glucose Arterial Blood Ionized Calcium Urine Creatinine Coronavirus (PCR) Positive A Crossmatch 01/23/21 01/23/21 01/24/21 20:49 Unknown 00:10 WBC RBC Hgb Hct MCV MCH MCHC RDW Plt Count Lymph % (Auto) Lymph # (Auto) Seg Neutrophils % Seg Neuts % (Manual) Lymphocytes % (Manual) Nucleated RBC % Seg Neutrophils # Seg Neutrophils # Man Lymphocytes # (Manual) Eosinophils # (Manual) INR D-Dimer ABG pH POC ABG pCO2 POC ABG pO2 ABG pO2 165.4 H ABG HCO3 ABG O2 Saturation ABG Base Excess -2.5 L ABG Hemoglobin ABG Oxyhemoglobin ABG Sodium ABG Potassium ABG Chloride ABG Glucose Oxyhemoglobin Carboxyhemoglobin Sodium 130 L Potassium Chloride 91.0 L Carbon Dioxide 20 L BUN 52 H Creatinine 3.8 H D Glucose 150 H POC Glucose 125 H Hemoglobin A1c Lactic Acid Calcium 8.0 L Phosphorus Magnesium Ferritin Total Bilirubin AST 42 H ALT Lactate Dehydrogenase C-Reactive Protein Albumin 2.4 L Triglycerides Arterial Blood Glucose Arterial Blood Ionized Calcium Urine Creatinine Coronavirus (PCR) Crossmatch 01/24/21 01/24/21 01/24/21 05:05 05:05 05:05 WBC 14.0 H RBC Hgb Hct MCV 95 H MCH 33 H MCHC RDW Plt Count Lymph % (Auto) Lymph # (Auto) Seg Neutrophils % Seg Neuts % (Manual) 91.0 H Lymphocytes % (Manual) 4.0 L Nucleated RBC % Seg Neutrophils # Seg Neutrophils # Man 12.7 H Lymphocytes # (Manual) 0.6 L Eosinophils # (Manual) INR D-Dimer 6159.48 H ABG pH POC ABG pCO2 POC ABG pO2 ABG pO2 ABG HCO3 ABG O2 Saturation ABG Base Excess ABG Hemoglobin ABG Oxyhemoglobin ABG Sodium ABG Potassium ABG Chloride ABG Glucose Oxyhemoglobin Carboxyhemoglobin Sodium Potassium Chloride Carbon Dioxide BUN Creatinine Glucose POC Glucose Hemoglobin A1c Lactic Acid Calcium Phosphorus Magnesium Ferritin 1178.0 H Total Bilirubin AST ALT Lactate Dehydrogenase C-Reactive Protein Albumin Triglycerides Arterial Blood Glucose Arterial Blood Ionized Calcium Urine Creatinine Coronavirus (PCR) Crossmatch 01/24/21 01/24/21 01/24/21 05:05 05:05 05:05 WBC RBC Hgb Hct MCV MCH MCHC RDW Plt Count Lymph % (Auto) Lymph # (Auto) Seg Neutrophils % Seg Neuts % (Manual) Lymphocytes % (Manual) Nucleated RBC % Seg Neutrophils # Seg Neutrophils # Man Lymphocytes # (Manual) Eosinophils # (Manual) INR D-Dimer ABG pH POC ABG pCO2 POC ABG pO2 ABG pO2 ABG HCO3 ABG O2 Saturation ABG Base Excess ABG Hemoglobin ABG Oxyhemoglobin ABG Sodium ABG Potassium ABG Chloride ABG Glucose Oxyhemoglobin Carboxyhemoglobin Sodium 132 L Potassium Chloride 93.1 L Carbon Dioxide 21 L BUN 57 H Creatinine 3.7 H Glucose 133 H POC Glucose Hemoglobin A1c Lactic Acid 2.20 H* Calcium 7.7 L Phosphorus Magnesium Ferritin Total Bilirubin AST ALT Lactate Dehydrogenase 658 H C-Reactive Protein 33.20 H Albumin 2.4 L Triglycerides Arterial Blood Glucose Arterial Blood Ionized Calcium Urine Creatinine Coronavirus (PCR) Crossmatch 01/24/21 01/24/21 01/24/21 05:34 06:00 17:35 WBC RBC Hgb Hct MCV MCH MCHC RDW Plt Count Lymph % (Auto) Lymph # (Auto) Seg Neutrophils % Seg Neuts % (Manual) Lymphocytes % (Manual) Nucleated RBC % Seg Neutrophils # Seg Neutrophils # Man Lymphocytes # (Manual) Eosinophils # (Manual) INR D-Dimer ABG pH POC ABG pCO2 POC ABG pO2 ABG pO2 ABG HCO3 ABG O2 Saturation ABG Base Excess ABG Hemoglobin ABG Oxyhemoglobin ABG Sodium ABG Potassium ABG Chloride ABG Glucose Oxyhemoglobin Carboxyhemoglobin Sodium Potassium Chloride Carbon Dioxide BUN Creatinine Glucose POC Glucose 136 H 137 H Hemoglobin A1c Lactic Acid Calcium Phosphorus Magnesium 2.80 H Ferritin Total Bilirubin AST ALT Lactate Dehydrogenase C-Reactive Protein Albumin Triglycerides Arterial Blood Glucose Arterial Blood Ionized Calcium Urine Creatinine Coronavirus (PCR) Crossmatch 01/25/21 01/25/21 01/25/21 04:15 05:40 05:40 WBC RBC Hgb Hct MCV 95 H MCH 33 H MCHC 35 H RDW Plt Count Lymph % (Auto) Lymph # (Auto) Seg Neutrophils % Seg Neuts % (Manual) 95.0 H Lymphocytes % (Manual) 3.0 L Nucleated RBC % Seg Neutrophils # Seg Neutrophils # Man 7.8 H Lymphocytes # (Manual) 0.2 L Eosinophils # (Manual) INR D-Dimer ABG pH POC ABG pCO2 POC ABG pO2 63.2 L ABG pO2 ABG HCO3 ABG O2 Saturation ABG Base Excess ABG Hemoglobin ABG Oxyhemoglobin 89.6 L ABG Sodium ABG Potassium ABG Chloride ABG Glucose 165 H Oxyhemoglobin Carboxyhemoglobin 0.3 L Sodium Potassium Chloride Carbon Dioxide BUN 67 H Creatinine 3.4 H Glucose 153 H POC Glucose Hemoglobin A1c Lactic Acid Calcium 7.5 L Phosphorus Magnesium Ferritin Total Bilirubin 1.40 H AST 62 H ALT Lactate Dehydrogenase C-Reactive Protein Albumin 2.6 L Triglycerides Arterial Blood Glucose 165 H Arterial Blood Ionized Calcium 4.3 L Urine Creatinine Coronavirus (PCR) Crossmatch 01/25/21 01/25/21 01/25/21 05:59 12:00 17:17 WBC RBC Hgb Hct MCV MCH MCHC RDW Plt Count Lymph % (Auto) Lymph # (Auto) Seg Neutrophils % Seg Neuts % (Manual) Lymphocytes % (Manual) Nucleated RBC % Seg Neutrophils # Seg Neutrophils # Man Lymphocytes # (Manual) Eosinophils # (Manual) INR D-Dimer ABG pH POC ABG pCO2 POC ABG pO2 ABG pO2 ABG HCO3 ABG O2 Saturation ABG Base Excess ABG Hemoglobin ABG Oxyhemoglobin ABG Sodium ABG Potassium ABG Chloride ABG Glucose Oxyhemoglobin Carboxyhemoglobin Sodium Potassium Chloride Carbon Dioxide BUN Creatinine Glucose POC Glucose 140 H 143 H 149 H Hemoglobin A1c Lactic Acid Calcium Phosphorus Magnesium Ferritin Total Bilirubin AST ALT Lactate Dehydrogenase C-Reactive Protein Albumin Triglycerides Arterial Blood Glucose Arterial Blood Ionized Calcium Urine Creatinine Coronavirus (PCR) Crossmatch 01/25/21 01/26/21 01/26/21 23:41 03:43 05:46 WBC RBC Hgb Hct MCV MCH MCHC RDW Plt Count Lymph % (Auto) Lymph # (Auto) Seg Neutrophils % Seg Neuts % (Manual) Lymphocytes % (Manual) Nucleated RBC % Seg Neutrophils # Seg Neutrophils # Man Lymphocytes # (Manual) Eosinophils # (Manual) INR D-Dimer ABG pH POC ABG pCO2 POC ABG pO2 70.0 L ABG pO2 ABG HCO3 ABG O2 Saturation ABG Base Excess ABG Hemoglobin ABG Oxyhemoglobin 91.9 L ABG Sodium ABG Potassium ABG Chloride 109.0 H ABG Glucose 165 H Oxyhemoglobin Carboxyhemoglobin Sodium Potassium Chloride Carbon Dioxide BUN Creatinine Glucose POC Glucose 132 H 161 H Hemoglobin A1c Lactic Acid Calcium Phosphorus Magnesium Ferritin Total Bilirubin AST ALT Lactate Dehydrogenase C-Reactive Protein Albumin Triglycerides Arterial Blood Glucose 165 H Arterial Blood Ionized Calcium 4.5 L Urine Creatinine Coronavirus (PCR) Crossmatch 01/26/21 01/26/21 01/26/21 05:47 05:47 05:47 WBC RBC Hgb Hct 35.3 L MCV 96 H MCH 33 H MCHC RDW Plt Count Lymph % (Auto) Lymph # (Auto) Seg Neutrophils % Seg Neuts % (Manual) 96.0 H Lymphocytes % (Manual) 2.0 L Nucleated RBC % Seg Neutrophils # Seg Neutrophils # Man Lymphocytes # (Manual) 0.1 L Eosinophils # (Manual) INR D-Dimer > 24105 H ABG pH POC ABG pCO2 POC ABG pO2 ABG pO2 ABG HCO3 ABG O2 Saturation ABG Base Excess ABG Hemoglobin ABG Oxyhemoglobin ABG Sodium ABG Potassium ABG Chloride ABG Glucose Oxyhemoglobin Carboxyhemoglobin Sodium Potassium Chloride Carbon Dioxide BUN 57 H Creatinine 2.2 H Glucose 185 H POC Glucose Hemoglobin A1c Lactic Acid Calcium 8.1 L Phosphorus Magnesium Ferritin Total Bilirubin AST ALT Lactate Dehydrogenase C-Reactive Protein Albumin Triglycerides Arterial Blood Glucose Arterial Blood Ionized Calcium Urine Creatinine Coronavirus (PCR) Crossmatch 01/26/21 01/26/21 01/26/21 05:47 05:47 05:47 WBC RBC Hgb Hct MCV MCH MCHC RDW Plt Count Lymph % (Auto) Lymph # (Auto) Seg Neutrophils % Seg Neuts % (Manual) Lymphocytes % (Manual) Nucleated RBC % Seg Neutrophils # Seg Neutrophils # Man Lymphocytes # (Manual) Eosinophils # (Manual) INR D-Dimer ABG pH POC ABG pCO2 POC ABG pO2 ABG pO2 ABG HCO3 ABG O2 Saturation ABG Base Excess ABG Hemoglobin ABG Oxyhemoglobin ABG Sodium ABG Potassium ABG Chloride ABG Glucose Oxyhemoglobin Carboxyhemoglobin Sodium Potassium Chloride 107.1 H Carbon Dioxide BUN 56 H Creatinine 2.2 H Glucose 188 H POC Glucose Hemoglobin A1c Lactic Acid Calcium 8.0 L Phosphorus Magnesium Ferritin 1178.0 H Total Bilirubin 1.50 H AST ALT Lactate Dehydrogenase 588 H C-Reactive Protein 40.10 H Albumin 2.2 L Triglycerides Arterial Blood Glucose Arterial Blood Ionized Calcium Urine Creatinine Coronavirus (PCR) Crossmatch 01/26/21 01/26/21 01/26/21 11:34 18:17 23:20 WBC RBC Hgb Hct MCV MCH MCHC RDW Plt Count Lymph % (Auto) Lymph # (Auto) Seg Neutrophils % Seg Neuts % (Manual) Lymphocytes % (Manual) Nucleated RBC % Seg Neutrophils # Seg Neutrophils # Man Lymphocytes # (Manual) Eosinophils # (Manual) INR D-Dimer ABG pH POC ABG pCO2 POC ABG pO2 ABG pO2 ABG HCO3 ABG O2 Saturation ABG Base Excess ABG Hemoglobin ABG Oxyhemoglobin ABG Sodium ABG Potassium ABG Chloride ABG Glucose Oxyhemoglobin Carboxyhemoglobin Sodium Potassium Chloride Carbon Dioxide BUN Creatinine Glucose POC Glucose 129 H 205 H 155 H Hemoglobin A1c Lactic Acid Calcium Phosphorus Magnesium Ferritin Total Bilirubin AST ALT Lactate Dehydrogenase C-Reactive Protein Albumin Triglycerides Arterial Blood Glucose Arterial Blood Ionized Calcium Urine Creatinine Coronavirus (PCR) Crossmatch 01/27/21 01/27/21 01/27/21 02:45 05:29 05:29 WBC RBC 3.58 L Hgb 11.7 L Hct 34.9 L MCV 97 H MCH 33 H MCHC RDW Plt Count Lymph % (Auto) Lymph # (Auto) Seg Neutrophils % Seg Neuts % (Manual) 88.0 H Lymphocytes % (Manual) 7.0 L Nucleated RBC % Seg Neutrophils # Seg Neutrophils # Man Lymphocytes # (Manual) 0.5 L Eosinophils # (Manual) INR D-Dimer ABG pH 7.319 L POC ABG pCO2 50.7 H POC ABG pO2 63.0 L ABG pO2 ABG HCO3 ABG O2 Saturation ABG Base Excess ABG Hemoglobin ABG Oxyhemoglobin ABG Sodium 145.2 H ABG Potassium 5.1 H ABG Chloride 114.0 H ABG Glucose 178 H Oxyhemoglobin Carboxyhemoglobin Sodium Potassium Chloride Carbon Dioxide BUN Creatinine Glucose POC Glucose Hemoglobin A1c Lactic Acid Calcium Phosphorus Magnesium 4.00 H Ferritin Total Bilirubin AST ALT Lactate Dehydrogenase C-Reactive Protein Albumin Triglycerides Arterial Blood Glucose 178 H Arterial Blood Ionized Calcium Urine Creatinine Coronavirus (PCR) Crossmatch 01/27/21 01/27/21 01/27/21 05:29 05:29 05:31 WBC RBC Hgb Hct MCV MCH MCHC RDW Plt Count Lymph % (Auto) Lymph # (Auto) Seg Neutrophils % Seg Neuts % (Manual) Lymphocytes % (Manual) Nucleated RBC % Seg Neutrophils # Seg Neutrophils # Man Lymphocytes # (Manual) Eosinophils # (Manual) INR D-Dimer ABG pH POC ABG pCO2 POC ABG pO2 ABG pO2 ABG HCO3 ABG O2 Saturation ABG Base Excess ABG Hemoglobin ABG Oxyhemoglobin ABG Sodium ABG Potassium ABG Chloride ABG Glucose Oxyhemoglobin Carboxyhemoglobin Sodium Potassium 5.2 H Chloride 109.6 H Carbon Dioxide BUN 67 H Creatinine 2.8 H Glucose 195 H POC Glucose 176 H Hemoglobin A1c Lactic Acid Calcium 7.9 L Phosphorus Magnesium Ferritin Total Bilirubin AST ALT Lactate Dehydrogenase C-Reactive Protein Albumin Triglycerides 160 H Arterial Blood Glucose Arterial Blood Ionized Calcium Urine Creatinine Coronavirus (PCR) Crossmatch 01/27/21 01/27/21 01/27/21 11:27 18:08 23:30 WBC RBC Hgb Hct MCV MCH MCHC RDW Plt Count Lymph % (Auto) Lymph # (Auto) Seg Neutrophils % Seg Neuts % (Manual) Lymphocytes % (Manual) Nucleated RBC % Seg Neutrophils # Seg Neutrophils # Man Lymphocytes # (Manual) Eosinophils # (Manual) INR D-Dimer ABG pH POC ABG pCO2 POC ABG pO2 ABG pO2 ABG HCO3 ABG O2 Saturation ABG Base Excess ABG Hemoglobin ABG Oxyhemoglobin ABG Sodium ABG Potassium ABG Chloride ABG Glucose Oxyhemoglobin Carboxyhemoglobin Sodium Potassium Chloride Carbon Dioxide BUN Creatinine Glucose POC Glucose 189 H 212 H 175 H Hemoglobin A1c Lactic Acid Calcium Phosphorus Magnesium Ferritin Total Bilirubin AST ALT Lactate Dehydrogenase C-Reactive Protein Albumin Triglycerides Arterial Blood Glucose Arterial Blood Ionized Calcium Urine Creatinine Coronavirus (PCR) Crossmatch 01/28/21 01/28/21 01/28/21 03:58 04:00 04:00 WBC RBC Hgb Hct MCV MCH MCHC RDW Plt Count Lymph % (Auto) Lymph # (Auto) Seg Neutrophils % Seg Neuts % (Manual) Lymphocytes % (Manual) Nucleated RBC % Seg Neutrophils # Seg Neutrophils # Man Lymphocytes # (Manual) Eosinophils # (Manual) INR D-Dimer > 20014 H ABG pH POC ABG pCO2 POC ABG pO2 52.9 L ABG pO2 ABG HCO3 ABG O2 Saturation ABG Base Excess ABG Hemoglobin ABG Oxyhemoglobin 84.1 L ABG Sodium 148.9 H ABG Potassium ABG Chloride 117.0 H ABG Glucose 194 H Oxyhemoglobin Carboxyhemoglobin Sodium Potassium Chloride Carbon Dioxide BUN Creatinine Glucose POC Glucose Hemoglobin A1c Lactic Acid Calcium Phosphorus Magnesium Ferritin Total Bilirubin AST ALT Lactate Dehydrogenase 679 H C-Reactive Protein 17.10 H Albumin Triglycerides Arterial Blood Glucose 194 H Arterial Blood Ionized Calcium Urine Creatinine Coronavirus (PCR) Crossmatch 01/28/21 01/28/21 01/28/21 04:00 05:00 06:00 WBC RBC 3.59 L Hgb 11.6 L Hct 34.8 L MCV 97 H MCH MCHC RDW Plt Count Lymph % (Auto) Lymph # (Auto) Seg Neutrophils % Seg Neuts % (Manual) 96.0 H Lymphocytes % (Manual) 3.0 L Nucleated RBC % Seg Neutrophils # Seg Neutrophils # Man Lymphocytes # (Manual) 0.2 L Eosinophils # (Manual) INR D-Dimer ABG pH POC ABG pCO2 POC ABG pO2 ABG pO2 ABG HCO3 ABG O2 Saturation ABG Base Excess ABG Hemoglobin ABG Oxyhemoglobin ABG Sodium ABG Potassium ABG Chloride ABG Glucose Oxyhemoglobin Carboxyhemoglobin Sodium Potassium Chloride Carbon Dioxide BUN Creatinine Glucose POC Glucose 159 H Hemoglobin A1c Lactic Acid Calcium Phosphorus Magnesium Ferritin 798.0 H Total Bilirubin AST ALT Lactate Dehydrogenase C-Reactive Protein Albumin Triglycerides Arterial Blood Glucose Arterial Blood Ionized Calcium Urine Creatinine Coronavirus (PCR) Crossmatch 01/28/21 01/28/21 01/28/21 06:00 06:00 08:12 WBC RBC Hgb Hct MCV MCH MCHC RDW Plt Count Lymph % (Auto) Lymph # (Auto) Seg Neutrophils % Seg Neuts % (Manual) Lymphocytes % (Manual) Nucleated RBC % Seg Neutrophils # Seg Neutrophils # Man Lymphocytes # (Manual) Eosinophils # (Manual) INR D-Dimer ABG pH POC ABG pCO2 POC ABG pO2 ABG pO2 ABG HCO3 ABG O2 Saturation ABG Base Excess ABG Hemoglobin ABG Oxyhemoglobin ABG Sodium ABG Potassium ABG Chloride ABG Glucose Oxyhemoglobin Carboxyhemoglobin Sodium Potassium Chloride 111.9 H Carbon Dioxide BUN 59 H Creatinine 2.2 H Glucose 189 H POC Glucose 181 H Hemoglobin A1c Lactic Acid Calcium 8.1 L Phosphorus Magnesium 3.20 H Ferritin Total Bilirubin AST ALT Lactate Dehydrogenase C-Reactive Protein Albumin Triglycerides Arterial Blood Glucose Arterial Blood Ionized Calcium Urine Creatinine Coronavirus (PCR) Crossmatch 01/28/21 01/28/21 01/28/21 12:03 16:43 23:51 WBC RBC Hgb Hct MCV MCH MCHC RDW Plt Count Lymph % (Auto) Lymph # (Auto) Seg Neutrophils % Seg Neuts % (Manual) Lymphocytes % (Manual) Nucleated RBC % Seg Neutrophils # Seg Neutrophils # Man Lymphocytes # (Manual) Eosinophils # (Manual) INR D-Dimer ABG pH POC ABG pCO2 POC ABG pO2 ABG pO2 ABG HCO3 ABG O2 Saturation ABG Base Excess ABG Hemoglobin ABG Oxyhemoglobin ABG Sodium ABG Potassium ABG Chloride ABG Glucose Oxyhemoglobin Carboxyhemoglobin Sodium Potassium Chloride Carbon Dioxide BUN Creatinine Glucose POC Glucose 164 H 198 H 196 H Hemoglobin A1c Lactic Acid Calcium Phosphorus Magnesium Ferritin Total Bilirubin AST ALT Lactate Dehydrogenase C-Reactive Protein Albumin Triglycerides Arterial Blood Glucose Arterial Blood Ionized Calcium Urine Creatinine Coronavirus (PCR) Crossmatch 01/29/21 01/29/21 01/29/21 05:00 05:23 06:00 WBC RBC Hgb Hct MCV MCH MCHC RDW Plt Count Lymph % (Auto) Lymph # (Auto) Seg Neutrophils % Seg Neuts % (Manual) Lymphocytes % (Manual) Nucleated RBC % Seg Neutrophils # Seg Neutrophils # Man Lymphocytes # (Manual) Eosinophils # (Manual) INR D-Dimer ABG pH 7.119 L POC ABG pCO2 87.1 H POC ABG pO2 ABG pO2 ABG HCO3 ABG O2 Saturation ABG Base Excess ABG Hemoglobin ABG Oxyhemoglobin ABG Sodium 152.5 H ABG Potassium 5.7 H ABG Chloride 120.0 H ABG Glucose 217 H Oxyhemoglobin Carboxyhemoglobin Sodium 151 H Potassium 5.9 H D Chloride 117.8 H Carbon Dioxide BUN 54 H Creatinine 2.2 H Glucose 208 H POC Glucose 180 H Hemoglobin A1c Lactic Acid Calcium 7.9 L Phosphorus Magnesium Ferritin Total Bilirubin AST ALT Lactate Dehydrogenase C-Reactive Protein Albumin Triglycerides Arterial Blood Glucose 217 H Arterial Blood Ionized Calcium Urine Creatinine Coronavirus (PCR) Crossmatch 01/29/21 01/29/21 01/29/21 12:29 17:28 18:05 WBC RBC Hgb Hct MCV MCH MCHC RDW Plt Count Lymph % (Auto) Lymph # (Auto) Seg Neutrophils % Seg Neuts % (Manual) Lymphocytes % (Manual) Nucleated RBC % Seg Neutrophils # Seg Neutrophils # Man Lymphocytes # (Manual) Eosinophils # (Manual) INR D-Dimer ABG pH POC ABG pCO2 POC ABG pO2 ABG pO2 ABG HCO3 ABG O2 Saturation ABG Base Excess ABG Hemoglobin ABG Oxyhemoglobin ABG Sodium ABG Potassium ABG Chloride ABG Glucose Oxyhemoglobin Carboxyhemoglobin Sodium 151 H Potassium 5.5 H Chloride 118.2 H Carbon Dioxide BUN 52 H Creatinine 2.2 H Glucose 224 H POC Glucose 181 H 203 H Hemoglobin A1c Lactic Acid Calcium 8.0 L Phosphorus Magnesium Ferritin Total Bilirubin AST ALT Lactate Dehydrogenase C-Reactive Protein Albumin Triglycerides Arterial Blood Glucose Arterial Blood Ionized Calcium Urine Creatinine Coronavirus (PCR) Crossmatch 01/29/21 01/29/21 01/29/21 18:13 23:34 Unknown WBC RBC Hgb Hct MCV 101 H MCH MCHC RDW 15.7 H Plt Count Lymph % (Auto) Lymph # (Auto) Seg Neutrophils % Seg Neuts % (Manual) 95.0 H Lymphocytes % (Manual) 3.0 L Nucleated RBC % Seg Neutrophils # Seg Neutrophils # Man 8.0 H Lymphocytes # (Manual) 0.3 L Eosinophils # (Manual) INR D-Dimer ABG pH 7.223 L POC ABG pCO2 64.8 H POC ABG pO2 63.6 L ABG pO2 ABG HCO3 ABG O2 Saturation ABG Base Excess ABG Hemoglobin ABG Oxyhemoglobin 89.4 L ABG Sodium 152.9 H ABG Potassium 5.3 H ABG Chloride 121.0 H ABG Glucose 227 H Oxyhemoglobin Carboxyhemoglobin Sodium Potassium Chloride Carbon Dioxide BUN Creatinine Glucose POC Glucose 198 H Hemoglobin A1c Lactic Acid Calcium Phosphorus Magnesium Ferritin Total Bilirubin AST ALT Lactate Dehydrogenase C-Reactive Protein Albumin Triglycerides Arterial Blood Glucose 227 H Arterial Blood Ionized Calcium Urine Creatinine Coronavirus (PCR) Crossmatch 01/30/21 01/30/21 01/30/21 04:00 04:00 04:00 WBC RBC Hgb Hct MCV MCH MCHC RDW Plt Count Lymph % (Auto) Lymph # (Auto) Seg Neutrophils % Seg Neuts % (Manual) Lymphocytes % (Manual) Nucleated RBC % Seg Neutrophils # Seg Neutrophils # Man Lymphocytes # (Manual) Eosinophils # (Manual) INR D-Dimer > 33831 H ABG pH POC ABG pCO2 POC ABG pO2 ABG pO2 ABG HCO3 ABG O2 Saturation ABG Base Excess ABG Hemoglobin ABG Oxyhemoglobin ABG Sodium ABG Potassium ABG Chloride ABG Glucose Oxyhemoglobin Carboxyhemoglobin Sodium Potassium Chloride Carbon Dioxide BUN Creatinine Glucose 234 H POC Glucose Hemoglobin A1c Lactic Acid Calcium Phosphorus Magnesium Ferritin 763.9 H Total Bilirubin AST ALT Lactate Dehydrogenase 424 H C-Reactive Protein 23.90 H Albumin Triglycerides Arterial Blood Glucose Arterial Blood Ionized Calcium Urine Creatinine Coronavirus (PCR) Crossmatch 01/30/21 01/30/21 01/30/21 04:24 05:00 05:16 WBC RBC 3.57 L Hgb 11.3 L Hct 35.4 L MCV 99 H MCH MCHC RDW 15.6 H Plt Count Lymph % (Auto) Lymph # (Auto) Seg Neutrophils % Seg Neuts % (Manual) 97.0 H Lymphocytes % (Manual) 1.0 L Nucleated RBC % Seg Neutrophils # Seg Neutrophils # Man 8.6 H Lymphocytes # (Manual) 0.1 L Eosinophils # (Manual) INR D-Dimer ABG pH 7.235 L POC ABG pCO2 69.7 H POC ABG pO2 61.0 L ABG pO2 ABG HCO3 ABG O2 Saturation ABG Base Excess ABG Hemoglobin ABG Oxyhemoglobin 89 L ABG Sodium 154.2 H ABG Potassium 5.4 H ABG Chloride 121.0 H ABG Glucose 247 H Oxyhemoglobin Carboxyhemoglobin Sodium Potassium Chloride Carbon Dioxide BUN Creatinine Glucose POC Glucose 238 H Hemoglobin A1c Lactic Acid Calcium Phosphorus Magnesium Ferritin Total Bilirubin AST ALT Lactate Dehydrogenase C-Reactive Protein Albumin Triglycerides Arterial Blood Glucose 247 H Arterial Blood Ionized Calcium Urine Creatinine Coronavirus (PCR) Crossmatch 01/30/21 01/30/21 01/30/21 06:00 11:28 12:00 WBC RBC Hgb Hct MCV MCH MCHC RDW Plt Count Lymph % (Auto) Lymph # (Auto) Seg Neutrophils % Seg Neuts % (Manual) Lymphocytes % (Manual) Nucleated RBC % Seg Neutrophils # Seg Neutrophils # Man Lymphocytes # (Manual) Eosinophils # (Manual) INR D-Dimer ABG pH POC ABG pCO2 POC ABG pO2 ABG pO2 ABG HCO3 ABG O2 Saturation ABG Base Excess ABG Hemoglobin ABG Oxyhemoglobin ABG Sodium ABG Potassium ABG Chloride ABG Glucose Oxyhemoglobin Carboxyhemoglobin Sodium 152 H Potassium 5.3 H Chloride 120.5 H Carbon Dioxide BUN 50 H Creatinine 2.3 H Glucose 239 H POC Glucose 153 H Hemoglobin A1c Lactic Acid Calcium 8.2 L Phosphorus Magnesium 2.60 H Ferritin Total Bilirubin AST ALT Lactate Dehydrogenase C-Reactive Protein Albumin Triglycerides 293 H Arterial Blood Glucose Arterial Blood Ionized Calcium Urine Creatinine 53.0 H Coronavirus (PCR) Crossmatch 01/30/21 01/30/21 01/31/21 18:49 23:06 04:00 WBC RBC Hgb Hct MCV MCH MCHC RDW Plt Count Lymph % (Auto) Lymph # (Auto) Seg Neutrophils % Seg Neuts % (Manual) Lymphocytes % (Manual) Nucleated RBC % Seg Neutrophils # Seg Neutrophils # Man Lymphocytes # (Manual) Eosinophils # (Manual) INR D-Dimer ABG pH POC ABG pCO2 POC ABG pO2 ABG pO2 ABG HCO3 ABG O2 Saturation ABG Base Excess ABG Hemoglobin ABG Oxyhemoglobin ABG Sodium ABG Potassium ABG Chloride ABG Glucose Oxyhemoglobin Carboxyhemoglobin Sodium 156 H Potassium 5.9 H Chloride 122.6 H Carbon Dioxide BUN 61 H Creatinine 3.2 H Glucose 205 H POC Glucose 220 H 192 H Hemoglobin A1c Lactic Acid Calcium 8.0 L Phosphorus Magnesium Ferritin Total Bilirubin AST ALT Lactate Dehydrogenase C-Reactive Protein Albumin Triglycerides Arterial Blood Glucose Arterial Blood Ionized Calcium Urine Creatinine Coronavirus (PCR) Crossmatch 01/31/21 01/31/21 01/31/21 04:40 05:17 11:33 WBC RBC Hgb Hct MCV MCH MCHC RDW Plt Count Lymph % (Auto) Lymph # (Auto) Seg Neutrophils % Seg Neuts % (Manual) Lymphocytes % (Manual) Nucleated RBC % Seg Neutrophils # Seg Neutrophils # Man Lymphocytes # (Manual) Eosinophils # (Manual) INR D-Dimer ABG pH 7.161 L* POC ABG pCO2 POC ABG pO2 ABG pO2 142.2 H ABG HCO3 28.3 H ABG O2 Saturation ABG Base Excess -3.2 L ABG Hemoglobin ABG Oxyhemoglobin ABG Sodium ABG Potassium ABG Chloride ABG Glucose Oxyhemoglobin Carboxyhemoglobin Sodium Potassium Chloride Carbon Dioxide BUN Creatinine Glucose POC Glucose 200 H 167 H Hemoglobin A1c Lactic Acid Calcium Phosphorus Magnesium Ferritin Total Bilirubin AST ALT Lactate Dehydrogenase C-Reactive Protein Albumin Triglycerides Arterial Blood Glucose Arterial Blood Ionized Calcium Urine Creatinine Coronavirus (PCR) Crossmatch 01/31/21 01/31/21 01/31/21 14:00 17:10 23:24 WBC RBC Hgb Hct MCV MCH MCHC RDW Plt Count Lymph % (Auto) Lymph # (Auto) Seg Neutrophils % Seg Neuts % (Manual) Lymphocytes % (Manual) Nucleated RBC % Seg Neutrophils # Seg Neutrophils # Man Lymphocytes # (Manual) Eosinophils # (Manual) INR D-Dimer ABG pH 7.205 L POC ABG pCO2 POC ABG pO2 ABG pO2 90.9 H ABG HCO3 26.5 H ABG O2 Saturation ABG Base Excess -2.7 L ABG Hemoglobin 12.3 L ABG Oxyhemoglobin ABG Sodium ABG Potassium ABG Chloride ABG Glucose Oxyhemoglobin 93.9 L Carboxyhemoglobin Sodium Potassium Chloride Carbon Dioxide BUN Creatinine Glucose POC Glucose 190 H 203 H Hemoglobin A1c Lactic Acid Calcium Phosphorus Magnesium Ferritin Total Bilirubin AST ALT Lactate Dehydrogenase C-Reactive Protein Albumin Triglycerides Arterial Blood Glucose Arterial Blood Ionized Calcium Urine Creatinine Coronavirus (PCR) Crossmatch 02/01/21 02/01/21 02/01/21 05:15 06:22 10:20 WBC RBC Hgb Hct MCV MCH MCHC RDW Plt Count Lymph % (Auto) Lymph # (Auto) Seg Neutrophils % Seg Neuts % (Manual) Lymphocytes % (Manual) Nucleated RBC % Seg Neutrophils # Seg Neutrophils # Man Lymphocytes # (Manual) Eosinophils # (Manual) INR D-Dimer ABG pH 6.920 L* 7.116 L* POC ABG pCO2 POC ABG pO2 ABG pO2 102.9 H 113.1 H ABG HCO3 28.2 H ABG O2 Saturation 92.9 L ABG Base Excess -6.9 L -5.8 L ABG Hemoglobin 11.6 L 9.5 L ABG Oxyhemoglobin ABG Sodium ABG Potassium ABG Chloride ABG Glucose Oxyhemoglobin 90.5 L 94.6 L Carboxyhemoglobin Sodium Potassium Chloride Carbon Dioxide BUN Creatinine Glucose POC Glucose 221 H Hemoglobin A1c Lactic Acid Calcium Phosphorus Magnesium Ferritin Total Bilirubin AST ALT Lactate Dehydrogenase C-Reactive Protein Albumin Triglycerides Arterial Blood Glucose Arterial Blood Ionized Calcium Urine Creatinine Coronavirus (PCR) Crossmatch 02/01/21 02/01/21 02/01/21 11:12 12:35 16:00 WBC RBC Hgb Hct MCV MCH MCHC RDW Plt Count Lymph % (Auto) Lymph # (Auto) Seg Neutrophils % Seg Neuts % (Manual) Lymphocytes % (Manual) Nucleated RBC % Seg Neutrophils # Seg Neutrophils # Man Lymphocytes # (Manual) Eosinophils # (Manual) INR D-Dimer ABG pH 7.155 L* POC ABG pCO2 POC ABG pO2 ABG pO2 94.6 H ABG HCO3 ABG O2 Saturation ABG Base Excess -6.5 L ABG Hemoglobin 13.1 L ABG Oxyhemoglobin ABG Sodium ABG Potassium ABG Chloride ABG Glucose Oxyhemoglobin 93.7 L Carboxyhemoglobin Sodium 155 H Potassium 5.1 H Chloride 120.5 H Carbon Dioxide BUN 90 H Creatinine 6.1 H D Glucose 238 H POC Glucose 207 H Hemoglobin A1c Lactic Acid Calcium 7.4 L Phosphorus Magnesium Ferritin Total Bilirubin AST ALT Lactate Dehydrogenase C-Reactive Protein Albumin Triglycerides Arterial Blood Glucose Arterial Blood Ionized Calcium Urine Creatinine Coronavirus (PCR) Crossmatch 02/01/21 02/01/21 02/02/21 17:10 23:47 04:04 WBC RBC 3.02 L Hgb 9.8 L Hct 30.7 L MCV 102 H MCH MCHC RDW 15.6 H Plt Count Lymph % (Auto) 4.2 L Lymph # (Auto) 0.3 L Seg Neutrophils % Seg Neuts % (Manual) Lymphocytes % (Manual) Nucleated RBC % Seg Neutrophils # Seg Neutrophils # Man Lymphocytes # (Manual) Eosinophils # (Manual) INR D-Dimer ABG pH POC ABG pCO2 POC ABG pO2 ABG pO2 ABG HCO3 ABG O2 Saturation ABG Base Excess ABG Hemoglobin ABG Oxyhemoglobin ABG Sodium ABG Potassium ABG Chloride ABG Glucose Oxyhemoglobin Carboxyhemoglobin Sodium Potassium Chloride Carbon Dioxide BUN Creatinine Glucose POC Glucose 238 H 235 H Hemoglobin A1c Lactic Acid Calcium Phosphorus Magnesium Ferritin Total Bilirubin AST ALT Lactate Dehydrogenase C-Reactive Protein Albumin Triglycerides Arterial Blood Glucose Arterial Blood Ionized Calcium Urine Creatinine Coronavirus (PCR) Crossmatch 02/02/21 02/02/21 02/02/21 05:18 05:35 11:28 WBC RBC Hgb Hct MCV MCH MCHC RDW Plt Count Lymph % (Auto) Lymph # (Auto) Seg Neutrophils % Seg Neuts % (Manual) Lymphocytes % (Manual) Nucleated RBC % Seg Neutrophils # Seg Neutrophils # Man Lymphocytes # (Manual) Eosinophils # (Manual) INR D-Dimer ABG pH 7.195 L* POC ABG pCO2 POC ABG pO2 ABG pO2 72.5 L ABG HCO3 ABG O2 Saturation 91.2 L ABG Base Excess -5.3 L ABG Hemoglobin 6.0 L ABG Oxyhemoglobin ABG Sodium ABG Potassium ABG Chloride ABG Glucose Oxyhemoglobin 89.1 L Carboxyhemoglobin Sodium Potassium Chloride 110.4 H Carbon Dioxide BUN 92 H Creatinine Glucose POC Glucose 239 H Hemoglobin A1c Lactic Acid Calcium Phosphorus Magnesium Ferritin Total Bilirubin AST ALT Lactate Dehydrogenase C-Reactive Protein Albumin Triglycerides Arterial Blood Glucose Arterial Blood Ionized Calcium Urine Creatinine Coronavirus (PCR) Crossmatch 02/02/21 02/02/21 02/02/21 11:53 16:00 18:04 WBC RBC Hgb Hct MCV MCH MCHC RDW Plt Count Lymph % (Auto) Lymph # (Auto) Seg Neutrophils % Seg Neuts % (Manual) Lymphocytes % (Manual) Nucleated RBC % Seg Neutrophils # Seg Neutrophils # Man Lymphocytes # (Manual) Eosinophils # (Manual) INR D-Dimer ABG pH POC ABG pCO2 POC ABG pO2 ABG pO2 ABG HCO3 ABG O2 Saturation ABG Base Excess ABG Hemoglobin ABG Oxyhemoglobin ABG Sodium ABG Potassium ABG Chloride ABG Glucose Oxyhemoglobin Carboxyhemoglobin Sodium Potassium Chloride Carbon Dioxide BUN Creatinine Glucose POC Glucose 248 H 199 H Hemoglobin A1c 6.3 H Lactic Acid Calcium Phosphorus Magnesium Ferritin Total Bilirubin AST ALT Lactate Dehydrogenase C-Reactive Protein Albumin Triglycerides Arterial Blood Glucose Arterial Blood Ionized Calcium Urine Creatinine Coronavirus (PCR) Crossmatch 02/02/21 02/03/21 02/03/21 23:31 03:12 04:10 WBC RBC 3.06 L Hgb 9.7 L Hct 30.4 L MCV 99 H MCH MCHC RDW 15.3 H Plt Count Lymph % (Auto) 6.1 L Lymph # (Auto) 0.5 L Seg Neutrophils % 86.1 H Seg Neuts % (Manual) Lymphocytes % (Manual) Nucleated RBC % Seg Neutrophils # Seg Neutrophils # Man Lymphocytes # (Manual) Eosinophils # (Manual) INR D-Dimer ABG pH 7.199 L POC ABG pCO2 48.3 H POC ABG pO2 68.3 L ABG pO2 ABG HCO3 ABG O2 Saturation ABG Base Excess ABG Hemoglobin 10.2 L ABG Oxyhemoglobin 89.2 L ABG Sodium 155.0 H ABG Potassium 4.6 H ABG Chloride 121.0 H ABG Glucose 166 H Oxyhemoglobin Carboxyhemoglobin 0.3 L Sodium Potassium Chloride Carbon Dioxide BUN Creatinine Glucose POC Glucose 200 H Hemoglobin A1c Lactic Acid Calcium Phosphorus Magnesium Ferritin Total Bilirubin AST ALT Lactate Dehydrogenase C-Reactive Protein Albumin Triglycerides Arterial Blood Glucose 166 H Arterial Blood Ionized Calcium 4.1 L Urine Creatinine Coronavirus (PCR) Crossmatch 02/03/21 02/03/21 02/03/21 04:10 05:34 11:51 WBC RBC Hgb Hct MCV MCH MCHC RDW Plt Count Lymph % (Auto) Lymph # (Auto) Seg Neutrophils % Seg Neuts % (Manual) Lymphocytes % (Manual) Nucleated RBC % Seg Neutrophils # Seg Neutrophils # Man Lymphocytes # (Manual) Eosinophils # (Manual) INR D-Dimer ABG pH POC ABG pCO2 POC ABG pO2 ABG pO2 ABG HCO3 ABG O2 Saturation ABG Base Excess ABG Hemoglobin ABG Oxyhemoglobin ABG Sodium ABG Potassium ABG Chloride ABG Glucose Oxyhemoglobin Carboxyhemoglobin Sodium 154 H D Potassium Chloride 116.7 H Carbon Dioxide 20 L BUN 130 H Creatinine 9.2 H D Glucose 160 H POC Glucose 130 H 154 H Hemoglobin A1c Lactic Acid Calcium 6.7 L Phosphorus 8.60 H Magnesium Ferritin Total Bilirubin AST ALT Lactate Dehydrogenase C-Reactive Protein Albumin Triglycerides Arterial Blood Glucose Arterial Blood Ionized Calcium Urine Creatinine Coronavirus (PCR) Crossmatch 02/03/21 02/03/21 02/04/21 16:49 23:22 03:48 WBC RBC Hgb Hct MCV MCH MCHC RDW Plt Count Lymph % (Auto) Lymph # (Auto) Seg Neutrophils % Seg Neuts % (Manual) Lymphocytes % (Manual) Nucleated RBC % Seg Neutrophils # Seg Neutrophils # Man Lymphocytes # (Manual) Eosinophils # (Manual) INR D-Dimer ABG pH 7.201 L POC ABG pCO2 54.5 H POC ABG pO2 74.0 L ABG pO2 ABG HCO3 ABG O2 Saturation ABG Base Excess ABG Hemoglobin 9.7 L ABG Oxyhemoglobin 91.1 L ABG Sodium 146.2 H ABG Potassium ABG Chloride 114.0 H ABG Glucose 155 H Oxyhemoglobin Carboxyhemoglobin Sodium Potassium Chloride Carbon Dioxide BUN Creatinine Glucose POC Glucose 164 H 152 H Hemoglobin A1c Lactic Acid Calcium Phosphorus Magnesium Ferritin Total Bilirubin AST ALT Lactate Dehydrogenase C-Reactive Protein Albumin Triglycerides Arterial Blood Glucose 155 H Arterial Blood Ionized Calcium 3.9 L Urine Creatinine Coronavirus (PCR) Crossmatch 02/04/21 02/04/21 02/04/21 04:45 04:45 04:45 WBC RBC 2.75 L Hgb 9.1 L Hct 26.9 L MCV 98 H MCH 33 H MCHC RDW Plt Count Lymph % (Auto) 6.8 L Lymph # (Auto) 0.5 L Seg Neutrophils % 87.2 H Seg Neuts % (Manual) Lymphocytes % (Manual) Nucleated RBC % Seg Neutrophils # Seg Neutrophils # Man Lymphocytes # (Manual) Eosinophils # (Manual) INR D-Dimer ABG pH POC ABG pCO2 POC ABG pO2 ABG pO2 ABG HCO3 ABG O2 Saturation ABG Base Excess ABG Hemoglobin ABG Oxyhemoglobin ABG Sodium ABG Potassium ABG Chloride ABG Glucose Oxyhemoglobin Carboxyhemoglobin Sodium 149 H Potassium Chloride 111.5 H Carbon Dioxide BUN 99 H Creatinine 8.5 H Glucose 139 H POC Glucose Hemoglobin A1c Lactic Acid Calcium 6.8 L Phosphorus 8.40 H Magnesium Ferritin Total Bilirubin AST ALT Lactate Dehydrogenase C-Reactive Protein Albumin Triglycerides Arterial Blood Glucose Arterial Blood Ionized Calcium Urine Creatinine Coronavirus (PCR) Crossmatch 02/04/21 02/04/21 02/04/21 06:05 11:44 18:00 WBC RBC Hgb Hct MCV MCH MCHC RDW Plt Count Lymph % (Auto) Lymph # (Auto) Seg Neutrophils % Seg Neuts % (Manual) Lymphocytes % (Manual) Nucleated RBC % Seg Neutrophils # Seg Neutrophils # Man Lymphocytes # (Manual) Eosinophils # (Manual) INR D-Dimer ABG pH POC ABG pCO2 POC ABG pO2 ABG pO2 ABG HCO3 ABG O2 Saturation ABG Base Excess ABG Hemoglobin ABG Oxyhemoglobin ABG Sodium ABG Potassium ABG Chloride ABG Glucose Oxyhemoglobin Carboxyhemoglobin Sodium Potassium Chloride Carbon Dioxide BUN Creatinine Glucose POC Glucose 138 H 129 H 163 H Hemoglobin A1c Lactic Acid Calcium Phosphorus Magnesium Ferritin Total Bilirubin AST ALT Lactate Dehydrogenase C-Reactive Protein Albumin Triglycerides Arterial Blood Glucose Arterial Blood Ionized Calcium Urine Creatinine Coronavirus (PCR) Crossmatch 02/04/21 02/05/21 02/05/21 23:48 01:50 01:50 WBC RBC 2.43 L Hgb 8.3 L Hct 23.6 L MCV 97 H MCH 34 H MCHC 35 H RDW Plt Count 137 L Lymph % (Auto) 8.4 L Lymph # (Auto) 0.6 L Seg Neutrophils % 86.1 H Seg Neuts % (Manual) Lymphocytes % (Manual) Nucleated RBC % Seg Neutrophils # Seg Neutrophils # Man Lymphocytes # (Manual) Eosinophils # (Manual) INR D-Dimer ABG pH POC ABG pCO2 POC ABG pO2 ABG pO2 ABG HCO3 ABG O2 Saturation ABG Base Excess ABG Hemoglobin ABG Oxyhemoglobin ABG Sodium ABG Potassium ABG Chloride ABG Glucose Oxyhemoglobin Carboxyhemoglobin Sodium Potassium Chloride Carbon Dioxide BUN Creatinine Glucose POC Glucose 157 H Hemoglobin A1c Lactic Acid Calcium Phosphorus 5.60 H D Magnesium Ferritin Total Bilirubin AST ALT Lactate Dehydrogenase C-Reactive Protein Albumin Triglycerides Arterial Blood Glucose Arterial Blood Ionized Calcium Urine Creatinine Coronavirus (PCR) Crossmatch 02/05/21 02/05/21 02/05/21 03:44 05:27 09:15 WBC RBC Hgb Hct MCV MCH MCHC RDW Plt Count Lymph % (Auto) Lymph # (Auto) Seg Neutrophils % Seg Neuts % (Manual) Lymphocytes % (Manual) Nucleated RBC % Seg Neutrophils # Seg Neutrophils # Man Lymphocytes # (Manual) Eosinophils # (Manual) INR D-Dimer ABG pH 7.202 L POC ABG pCO2 63.7 H POC ABG pO2 69.0 L ABG pO2 ABG HCO3 ABG O2 Saturation ABG Base Excess ABG Hemoglobin 9.4 L ABG Oxyhemoglobin ABG Sodium ABG Potassium ABG Chloride 108.0 H ABG Glucose 186 H Oxyhemoglobin Carboxyhemoglobin Sodium Potassium Chloride Carbon Dioxide BUN 78 H Creatinine 8.0 H Glucose 163 H POC Glucose 157 H Hemoglobin A1c Lactic Acid Calcium 6.3 L Phosphorus Magnesium Ferritin Total Bilirubin AST ALT Lactate Dehydrogenase C-Reactive Protein Albumin Triglycerides Arterial Blood Glucose 186 H Arterial Blood Ionized Calcium 3.9 L Urine Creatinine Coronavirus (PCR) Crossmatch 02/05/21 02/05/21 02/05/21 11:47 17:39 23:40 WBC RBC Hgb Hct MCV MCH MCHC RDW Plt Count Lymph % (Auto) Lymph # (Auto) Seg Neutrophils % Seg Neuts % (Manual) Lymphocytes % (Manual) Nucleated RBC % Seg Neutrophils # Seg Neutrophils # Man Lymphocytes # (Manual) Eosinophils # (Manual) INR D-Dimer ABG pH 7.273 L POC ABG pCO2 62.1 H POC ABG pO2 72.0 L ABG pO2 ABG HCO3 ABG O2 Saturation ABG Base Excess ABG Hemoglobin 9.1 L ABG Oxyhemoglobin 91.3 L ABG Sodium ABG Potassium 3.1 L ABG Chloride ABG Glucose 125 H Oxyhemoglobin Carboxyhemoglobin Sodium Potassium Chloride Carbon Dioxide BUN Creatinine Glucose POC Glucose 126 H 126 H Hemoglobin A1c Lactic Acid Calcium Phosphorus Magnesium Ferritin Total Bilirubin AST ALT Lactate Dehydrogenase C-Reactive Protein Albumin Triglycerides Arterial Blood Glucose 125 H Arterial Blood Ionized Calcium 4.0 L Urine Creatinine Coronavirus (PCR) Crossmatch 02/06/21 02/06/21 02/06/21 04:30 04:57 09:45 WBC RBC Hgb Hct MCV MCH MCHC RDW Plt Count Lymph % (Auto) Lymph # (Auto) Seg Neutrophils % Seg Neuts % (Manual) Lymphocytes % (Manual) Nucleated RBC % Seg Neutrophils # Seg Neutrophils # Man Lymphocytes # (Manual) Eosinophils # (Manual) INR D-Dimer ABG pH 7.159 L 7.138 L* POC ABG pCO2 76.3 H POC ABG pO2 66.9 L ABG pO2 ABG HCO3 ABG O2 Saturation 93.4 L ABG Base Excess -6.0 L ABG Hemoglobin 11.2 L 11.7 L ABG Oxyhemoglobin 88.2 L ABG Sodium ABG Potassium ABG Chloride ABG Glucose 134 H Oxyhemoglobin 91.2 L Carboxyhemoglobin Sodium Potassium Chloride Carbon Dioxide BUN Creatinine Glucose POC Glucose 124 H Hemoglobin A1c Lactic Acid Calcium Phosphorus Magnesium Ferritin Total Bilirubin AST ALT Lactate Dehydrogenase C-Reactive Protein Albumin Triglycerides Arterial Blood Glucose 134 H Arterial Blood Ionized Calcium 3.9 L Urine Creatinine Coronavirus (PCR) Crossmatch 02/06/21 02/06/21 02/06/21 11:11 17:00 17:00 WBC RBC Hgb Hct MCV MCH MCHC RDW Plt Count Lymph % (Auto) Lymph # (Auto) Seg Neutrophils % Seg Neuts % (Manual) Lymphocytes % (Manual) Nucleated RBC % Seg Neutrophils # Seg Neutrophils # Man Lymphocytes # (Manual) Eosinophils # (Manual) INR D-Dimer ABG pH 7.158 L* POC ABG pCO2 POC ABG pO2 ABG pO2 109.8 H ABG HCO3 28.7 H ABG O2 Saturation ABG Base Excess -2.5 L ABG Hemoglobin ABG Oxyhemoglobin ABG Sodium ABG Potassium ABG Chloride ABG Glucose Oxyhemoglobin 94.5 L Carboxyhemoglobin Sodium Potassium Chloride Carbon Dioxide BUN Creatinine Glucose POC Glucose 120 H Hemoglobin A1c Lactic Acid Calcium Phosphorus Magnesium Ferritin Total Bilirubin AST ALT Lactate Dehydrogenase C-Reactive Protein Albumin Triglycerides 503 H Arterial Blood Glucose Arterial Blood Ionized Calcium Urine Creatinine Coronavirus (PCR) Crossmatch 02/06/21 02/06/21 02/06/21 17:28 20:16 Unknown WBC 13.5 H RBC 2.98 L Hgb 9.3 L Hct 28.6 L MCV 96 H MCH MCHC RDW Plt Count Lymph % (Auto) Lymph # (Auto) Seg Neutrophils % Seg Neuts % (Manual) 87.0 H Lymphocytes % (Manual) 7.0 L Nucleated RBC % Seg Neutrophils # Seg Neutrophils # Man 11.7 H Lymphocytes # (Manual) 0.9 L Eosinophils # (Manual) 0.5 H INR D-Dimer ABG pH POC ABG pCO2 POC ABG pO2 ABG pO2 ABG HCO3 ABG O2 Saturation ABG Base Excess ABG Hemoglobin ABG Oxyhemoglobin ABG Sodium ABG Potassium ABG Chloride ABG Glucose Oxyhemoglobin Carboxyhemoglobin Sodium Potassium Chloride Carbon Dioxide BUN Creatinine Glucose POC Glucose 147 H 164 H Hemoglobin A1c Lactic Acid Calcium Phosphorus Magnesium Ferritin Total Bilirubin AST ALT Lactate Dehydrogenase C-Reactive Protein Albumin Triglycerides Arterial Blood Glucose Arterial Blood Ionized Calcium Urine Creatinine Coronavirus (PCR) Crossmatch 02/06/21 02/07/21 02/07/21 Unknown 01:21 04:00 WBC 12.0 H RBC 2.61 L Hgb 8.2 L Hct 24.5 L MCV MCH MCHC RDW Plt Count Lymph % (Auto) 8.9 L Lymph # (Auto) 1.1 L Seg Neutrophils % 86.3 H Seg Neuts % (Manual) Lymphocytes % (Manual) Nucleated RBC % Seg Neutrophils # 10.3 H Seg Neutrophils # Man Lymphocytes # (Manual) Eosinophils # (Manual) INR D-Dimer ABG pH POC ABG pCO2 POC ABG pO2 ABG pO2 ABG HCO3 ABG O2 Saturation ABG Base Excess ABG Hemoglobin ABG Oxyhemoglobin ABG Sodium ABG Potassium ABG Chloride ABG Glucose Oxyhemoglobin Carboxyhemoglobin Sodium Potassium 3.5 L Chloride Carbon Dioxide BUN 58 H Creatinine 6.6 H Glucose 107 H POC Glucose 173 H Hemoglobin A1c Lactic Acid Calcium 6.7 L Phosphorus 8.00 H D Magnesium Ferritin Total Bilirubin AST ALT Lactate Dehydrogenase C-Reactive Protein Albumin Triglycerides Arterial Blood Glucose Arterial Blood Ionized Calcium Urine Creatinine Coronavirus (PCR) Crossmatch 02/07/21 02/07/21 02/07/21 04:00 04:45 11:49 WBC RBC Hgb Hct MCV MCH MCHC RDW Plt Count Lymph % (Auto) Lymph # (Auto) Seg Neutrophils % Seg Neuts % (Manual) Lymphocytes % (Manual) Nucleated RBC % Seg Neutrophils # Seg Neutrophils # Man Lymphocytes # (Manual) Eosinophils # (Manual) INR D-Dimer ABG pH 7.287 L POC ABG pCO2 64.8 H POC ABG pO2 74.0 L ABG pO2 ABG HCO3 ABG O2 Saturation ABG Base Excess ABG Hemoglobin 9.1 L ABG Oxyhemoglobin 92.0 L ABG Sodium ABG Potassium 2.8 L ABG Chloride ABG Glucose 226 H Oxyhemoglobin Carboxyhemoglobin Sodium Potassium Chloride Carbon Dioxide BUN Creatinine Glucose POC Glucose 170 H Hemoglobin A1c Lactic Acid Calcium Phosphorus 5.50 H D Magnesium Ferritin Total Bilirubin AST ALT Lactate Dehydrogenase C-Reactive Protein Albumin Triglycerides Arterial Blood Glucose 226 H Arterial Blood Ionized Calcium 3.7 L Urine Creatinine Coronavirus (PCR) Crossmatch 02/07/21 02/07/21 02/07/21 13:48 17:45 23:02 WBC RBC Hgb Hct MCV MCH MCHC RDW Plt Count Lymph % (Auto) Lymph # (Auto) Seg Neutrophils % Seg Neuts % (Manual) Lymphocytes % (Manual) Nucleated RBC % Seg Neutrophils # Seg Neutrophils # Man Lymphocytes # (Manual) Eosinophils # (Manual) INR D-Dimer ABG pH POC ABG pCO2 POC ABG pO2 ABG pO2 ABG HCO3 ABG O2 Saturation ABG Base Excess ABG Hemoglobin ABG Oxyhemoglobin ABG Sodium ABG Potassium ABG Chloride ABG Glucose Oxyhemoglobin Carboxyhemoglobin Sodium 136 L Potassium 2.6 L* D Chloride 95.1 L Carbon Dioxide 33 H D BUN 30 H Creatinine 3.6 H Glucose 184 H POC Glucose 172 H 172 H Hemoglobin A1c Lactic Acid Calcium 6.9 L Phosphorus Magnesium Ferritin Total Bilirubin AST ALT Lactate Dehydrogenase C-Reactive Protein Albumin Triglycerides Arterial Blood Glucose Arterial Blood Ionized Calcium Urine Creatinine Coronavirus (PCR) Crossmatch 02/08/21 02/08/21 02/08/21 05:22 06:00 06:00 WBC RBC 2.21 L Hgb 7.2 L Hct 21.0 L MCV 95 H MCH MCHC RDW Plt Count Lymph % (Auto) Lymph # (Auto) Seg Neutrophils % Seg Neuts % (Manual) 87.0 H Lymphocytes % (Manual) 4.0 L Nucleated RBC % Seg Neutrophils # Seg Neutrophils # Man 8.5 H Lymphocytes # (Manual) 0.4 L Eosinophils # (Manual) INR D-Dimer ABG pH POC ABG pCO2 POC ABG pO2 ABG pO2 ABG HCO3 ABG O2 Saturation ABG Base Excess ABG Hemoglobin ABG Oxyhemoglobin ABG Sodium ABG Potassium ABG Chloride ABG Glucose Oxyhemoglobin Carboxyhemoglobin Sodium 136 L Potassium 2.4 L* Chloride 93.1 L Carbon Dioxide 36 H BUN 43 H Creatinine 5.4 H Glucose 167 H POC Glucose 162 H Hemoglobin A1c Lactic Acid Calcium 6.3 L Phosphorus Magnesium Ferritin Total Bilirubin AST ALT Lactate Dehydrogenase C-Reactive Protein Albumin Triglycerides Arterial Blood Glucose Arterial Blood Ionized Calcium Urine Creatinine Coronavirus (PCR) Crossmatch 02/08/21 02/08/21 02/08/21 11:44 17:53 18:56 WBC RBC Hgb Hct MCV MCH MCHC RDW Plt Count Lymph % (Auto) Lymph # (Auto) Seg Neutrophils % Seg Neuts % (Manual) Lymphocytes % (Manual) Nucleated RBC % Seg Neutrophils # Seg Neutrophils # Man Lymphocytes # (Manual) Eosinophils # (Manual) INR D-Dimer ABG pH POC ABG pCO2 POC ABG pO2 ABG pO2 ABG HCO3 ABG O2 Saturation ABG Base Excess ABG Hemoglobin ABG Oxyhemoglobin ABG Sodium ABG Potassium ABG Chloride ABG Glucose Oxyhemoglobin Carboxyhemoglobin Sodium Potassium 2.9 L* D Chloride Carbon Dioxide BUN Creatinine Glucose POC Glucose 164 H 154 H Hemoglobin A1c Lactic Acid Calcium Phosphorus Magnesium Ferritin Total Bilirubin AST ALT Lactate Dehydrogenase C-Reactive Protein Albumin Triglycerides Arterial Blood Glucose Arterial Blood Ionized Calcium Urine Creatinine Coronavirus (PCR) Crossmatch 02/08/21 02/08/21 02/09/21 23:24 23:58 03:21 WBC RBC Hgb Hct MCV MCH MCHC RDW Plt Count Lymph % (Auto) Lymph # (Auto) Seg Neutrophils % Seg Neuts % (Manual) Lymphocytes % (Manual) Nucleated RBC % Seg Neutrophils # Seg Neutrophils # Man Lymphocytes # (Manual) Eosinophils # (Manual) INR D-Dimer ABG pH 7.319 L POC ABG pCO2 63.3 H 68.3 H POC ABG pO2 71.2 L 76.5 L ABG pO2 ABG HCO3 ABG O2 Saturation ABG Base Excess ABG Hemoglobin 8.2 L 7.0 L ABG Oxyhemoglobin 91.8 L 92.2 L ABG Sodium 134.6 L 133.0 L ABG Potassium 2.3 L 3.1 L ABG Chloride 96.0 L 95.0 L ABG Glucose 184 H 154 H Oxyhemoglobin Carboxyhemoglobin Sodium Potassium Chloride Carbon Dioxide BUN Creatinine Glucose POC Glucose 152 H Hemoglobin A1c Lactic Acid Calcium Phosphorus Magnesium Ferritin Total Bilirubin AST ALT Lactate Dehydrogenase C-Reactive Protein Albumin Triglycerides Arterial Blood Glucose 184 H 154 H Arterial Blood Ionized Calcium 3.6 L 3.5 L Urine Creatinine Coronavirus (PCR) Crossmatch 02/09/21 02/09/21 02/09/21 05:10 05:10 06:04 WBC RBC 2.14 L Hgb 7.0 L Hct 20.5 L MCV 96 H MCH 33 H MCHC RDW Plt Count Lymph % (Auto) Lymph # (Auto) Seg Neutrophils % Seg Neuts % (Manual) 82.0 H Lymphocytes % (Manual) 9.0 L Nucleated RBC % 1.0 H Seg Neutrophils # Seg Neutrophils # Man 8.9 H Lymphocytes # (Manual) 1.0 L Eosinophils # (Manual) INR D-Dimer ABG pH POC ABG pCO2 POC ABG pO2 ABG pO2 ABG HCO3 ABG O2 Saturation ABG Base Excess ABG Hemoglobin ABG Oxyhemoglobin ABG Sodium ABG Potassium ABG Chloride ABG Glucose Oxyhemoglobin Carboxyhemoglobin Sodium 135 L Potassium 3.2 L Chloride 91.0 L Carbon Dioxide 32 H BUN 54 H Creatinine 6.6 H Glucose 163 H POC Glucose 149 H Hemoglobin A1c Lactic Acid Calcium 6.2 L Phosphorus Magnesium Ferritin Total Bilirubin AST ALT Lactate Dehydrogenase C-Reactive Protein Albumin Triglycerides Arterial Blood Glucose Arterial Blood Ionized Calcium Urine Creatinine Coronavirus (PCR) Crossmatch 02/09/21 02/09/21 02/09/21 12:02 13:32 13:40 WBC RBC Hgb Hct MCV MCH MCHC RDW Plt Count Lymph % (Auto) Lymph # (Auto) Seg Neutrophils % Seg Neuts % (Manual) Lymphocytes % (Manual) Nucleated RBC % Seg Neutrophils # Seg Neutrophils # Man Lymphocytes # (Manual) Eosinophils # (Manual) INR D-Dimer ABG pH POC ABG pCO2 POC ABG pO2 ABG pO2 ABG HCO3 ABG O2 Saturation ABG Base Excess ABG Hemoglobin ABG Oxyhemoglobin ABG Sodium ABG Potassium ABG Chloride ABG Glucose Oxyhemoglobin Carboxyhemoglobin Sodium Potassium Chloride Carbon Dioxide BUN Creatinine Glucose POC Glucose 147 H Hemoglobin A1c Lactic Acid Calcium Phosphorus Magnesium Ferritin Total Bilirubin AST ALT Lactate Dehydrogenase C-Reactive Protein Albumin Triglycerides 250 H Arterial Blood Glucose Arterial Blood Ionized Calcium Urine Creatinine Coronavirus (PCR) Crossmatch See Detail 02/09/21 02/09/21 02/10/21 18:06 23:42 04:00 WBC RBC Hgb Hct MCV MCH MCHC RDW Plt Count Lymph % (Auto) Lymph # (Auto) Seg Neutrophils % Seg Neuts % (Manual) Lymphocytes % (Manual) Nucleated RBC % Seg Neutrophils # Seg Neutrophils # Man Lymphocytes # (Manual) Eosinophils # (Manual) INR D-Dimer ABG pH POC ABG pCO2 65.8 H POC ABG pO2 68.0 L ABG pO2 ABG HCO3 ABG O2 Saturation ABG Base Excess ABG Hemoglobin 8.3 L ABG Oxyhemoglobin ABG Sodium 132.4 L ABG Potassium 2.9 L ABG Chloride 92.0 L ABG Glucose 174 H Oxyhemoglobin Carboxyhemoglobin Sodium Potassium Chloride Carbon Dioxide BUN Creatinine Glucose POC Glucose 152 H 147 H Hemoglobin A1c Lactic Acid Calcium Phosphorus Magnesium Ferritin Total Bilirubin AST ALT Lactate Dehydrogenase C-Reactive Protein Albumin Triglycerides Arterial Blood Glucose 174 H Arterial Blood Ionized Calcium 3.4 L Urine Creatinine Coronavirus (PCR) Crossmatch 02/10/21 02/10/21 02/10/21 05:32 11:29 14:08 WBC 12.5 H RBC 2.14 L Hgb 6.6 L Hct 20.2 L MCV MCH MCHC RDW Plt Count Lymph % (Auto) Lymph # (Auto) Seg Neutrophils % Seg Neuts % (Manual) Lymphocytes % (Manual) Nucleated RBC % Seg Neutrophils # Seg Neutrophils # Man Lymphocytes # (Manual) Eosinophils # (Manual) INR D-Dimer ABG pH POC ABG pCO2 POC ABG pO2 ABG pO2 ABG HCO3 ABG O2 Saturation ABG Base Excess ABG Hemoglobin ABG Oxyhemoglobin ABG Sodium ABG Potassium ABG Chloride ABG Glucose Oxyhemoglobin Carboxyhemoglobin Sodium Potassium Chloride Carbon Dioxide BUN Creatinine Glucose POC Glucose 167 H 147 H Hemoglobin A1c Lactic Acid Calcium Phosphorus Magnesium Ferritin Total Bilirubin AST ALT Lactate Dehydrogenase C-Reactive Protein Albumin Triglycerides Arterial Blood Glucose Arterial Blood Ionized Calcium Urine Creatinine Coronavirus (PCR) Crossmatch 02/10/21 02/10/21 02/10/21 14:08 18:11 22:32 WBC RBC Hgb 6.4 L Hct 19.1 L* MCV MCH MCHC RDW Plt Count Lymph % (Auto) Lymph # (Auto) Seg Neutrophils % Seg Neuts % (Manual) Lymphocytes % (Manual) Nucleated RBC % Seg Neutrophils # Seg Neutrophils # Man Lymphocytes # (Manual) Eosinophils # (Manual) INR D-Dimer ABG pH POC ABG pCO2 POC ABG pO2 ABG pO2 ABG HCO3 ABG O2 Saturation ABG Base Excess ABG Hemoglobin ABG Oxyhemoglobin ABG Sodium ABG Potassium ABG Chloride ABG Glucose Oxyhemoglobin Carboxyhemoglobin Sodium 136 L Potassium 2.9 L* Chloride 90.2 L Carbon Dioxide 33 H BUN 42 H Creatinine 7.5 H Glucose 155 H POC Glucose 173 H Hemoglobin A1c Lactic Acid Calcium 6.1 L Phosphorus Magnesium Ferritin Total Bilirubin AST ALT Lactate Dehydrogenase C-Reactive Protein Albumin Triglycerides Arterial Blood Glucose Arterial Blood Ionized Calcium Urine Creatinine Coronavirus (PCR) Crossmatch 02/11/21 02/11/21 02/11/21 00:28 04:05 04:30 WBC RBC Hgb Hct MCV MCH MCHC RDW Plt Count Lymph % (Auto) Lymph # (Auto) Seg Neutrophils % Seg Neuts % (Manual) Lymphocytes % (Manual) Nucleated RBC % Seg Neutrophils # Seg Neutrophils # Man Lymphocytes # (Manual) Eosinophils # (Manual) INR D-Dimer ABG pH 7.307 L POC ABG pCO2 72.2 H POC ABG pO2 72.3 L ABG pO2 ABG HCO3 ABG O2 Saturation ABG Base Excess ABG Hemoglobin 8.2 L ABG Oxyhemoglobin ABG Sodium 132.3 L ABG Potassium 3.2 L ABG Chloride 91.0 L ABG Glucose 197 H Oxyhemoglobin Carboxyhemoglobin Sodium 135 L Potassium 3.3 L Chloride 87.1 L Carbon Dioxide 36 H BUN 71 H Creatinine 7.9 H Glucose 263 H POC Glucose 192 H Hemoglobin A1c Lactic Acid Calcium 6.2 L Phosphorus Magnesium Ferritin Total Bilirubin AST ALT Lactate Dehydrogenase C-Reactive Protein Albumin Triglycerides Arterial Blood Glucose 197 H Arterial Blood Ionized Calcium 3.3 L Urine Creatinine Coronavirus (PCR) Crossmatch 02/11/21 02/11/21 02/11/21 04:30 05:47 08:27 WBC RBC 2.22 L Hgb 7.2 L Hct 21.0 L MCV MCH MCHC RDW Plt Count Lymph % (Auto) 8.7 L Lymph # (Auto) 0.9 L Seg Neutrophils % 85.5 H Seg Neuts % (Manual) Lymphocytes % (Manual) Nucleated RBC % Seg Neutrophils # 9.2 H Seg Neutrophils # Man Lymphocytes # (Manual) Eosinophils # (Manual) INR 1.17 H D-Dimer 1930.92 H ABG pH POC ABG pCO2 POC ABG pO2 ABG pO2 ABG HCO3 ABG O2 Saturation ABG Base Excess ABG Hemoglobin ABG Oxyhemoglobin ABG Sodium ABG Potassium ABG Chloride ABG Glucose Oxyhemoglobin Carboxyhemoglobin Sodium Potassium Chloride Carbon Dioxide BUN Creatinine Glucose POC Glucose 189 H Hemoglobin A1c Lactic Acid Calcium Phosphorus Magnesium Ferritin Total Bilirubin AST ALT Lactate Dehydrogenase C-Reactive Protein Albumin Triglycerides Arterial Blood Glucose Arterial Blood Ionized Calcium Urine Creatinine Coronavirus (PCR) Crossmatch 02/11/21 02/11/21 02/11/21 09:00 09:00 13:18 WBC RBC Hgb Hct MCV MCH MCHC RDW Plt Count Lymph % (Auto) Lymph # (Auto) Seg Neutrophils % Seg Neuts % (Manual) Lymphocytes % (Manual) Nucleated RBC % Seg Neutrophils # Seg Neutrophils # Man Lymphocytes # (Manual) Eosinophils # (Manual) INR D-Dimer ABG pH POC ABG pCO2 POC ABG pO2 ABG pO2 ABG HCO3 ABG O2 Saturation ABG Base Excess ABG Hemoglobin ABG Oxyhemoglobin ABG Sodium ABG Potassium ABG Chloride ABG Glucose Oxyhemoglobin Carboxyhemoglobin Sodium Potassium Chloride Carbon Dioxide BUN Creatinine Glucose 126 H POC Glucose 160 H Hemoglobin A1c Lactic Acid Calcium Phosphorus Magnesium Ferritin 1253.0 H Total Bilirubin AST ALT Lactate Dehydrogenase 649 H C-Reactive Protein 12.60 H Albumin Triglycerides Arterial Blood Glucose Arterial Blood Ionized Calcium Urine Creatinine Coronavirus (PCR) Crossmatch 02/11/21 02/11/21 02/11/21 14:30 16:59 22:34 WBC RBC Hgb 7.1 L 6.7 L Hct 20.5 L 19.9 L* MCV MCH MCHC RDW Plt Count Lymph % (Auto) Lymph # (Auto) Seg Neutrophils % Seg Neuts % (Manual) Lymphocytes % (Manual) Nucleated RBC % Seg Neutrophils # Seg Neutrophils # Man Lymphocytes # (Manual) Eosinophils # (Manual) INR D-Dimer ABG pH POC ABG pCO2 POC ABG pO2 ABG pO2 ABG HCO3 ABG O2 Saturation ABG Base Excess ABG Hemoglobin ABG Oxyhemoglobin ABG Sodium ABG Potassium ABG Chloride ABG Glucose Oxyhemoglobin Carboxyhemoglobin Sodium Potassium Chloride Carbon Dioxide BUN Creatinine Glucose POC Glucose 151 H Hemoglobin A1c Lactic Acid Calcium Phosphorus Magnesium Ferritin Total Bilirubin AST ALT Lactate Dehydrogenase C-Reactive Protein Albumin Triglycerides Arterial Blood Glucose Arterial Blood Ionized Calcium Urine Creatinine Coronavirus (PCR) Crossmatch 02/11/21 02/12/21 02/12/21 23:42 04:41 05:19 WBC RBC Hgb Hct MCV MCH MCHC RDW Plt Count Lymph % (Auto) Lymph # (Auto) Seg Neutrophils % Seg Neuts % (Manual) Lymphocytes % (Manual) Nucleated RBC % Seg Neutrophils # Seg Neutrophils # Man Lymphocytes # (Manual) Eosinophils # (Manual) INR D-Dimer ABG pH POC ABG pCO2 POC ABG pO2 ABG pO2 69.0 L ABG HCO3 32.5 H ABG O2 Saturation ABG Base Excess 7.7 H ABG Hemoglobin 5.1 L ABG Oxyhemoglobin ABG Sodium ABG Potassium ABG Chloride ABG Glucose Oxyhemoglobin 94.7 L Carboxyhemoglobin Sodium Potassium Chloride Carbon Dioxide BUN Creatinine Glucose POC Glucose 165 H 153 H Hemoglobin A1c Lactic Acid Calcium Phosphorus Magnesium Ferritin Total Bilirubin AST ALT Lactate Dehydrogenase C-Reactive Protein Albumin Triglycerides Arterial Blood Glucose Arterial Blood Ionized Calcium Urine Creatinine Coronavirus (PCR) Crossmatch 02/12/21 02/12/21 02/12/21 06:35 06:35 08:40 WBC RBC 2.21 L Hgb 7.2 L Hct 20.7 L MCV MCH 33 H MCHC 35 H RDW Plt Count Lymph % (Auto) Lymph # (Auto) Seg Neutrophils % Seg Neuts % (Manual) Lymphocytes % (Manual) Nucleated RBC % Seg Neutrophils # Seg Neutrophils # Man Lymphocytes # (Manual) Eosinophils # (Manual) INR D-Dimer ABG pH POC ABG pCO2 POC ABG pO2 ABG pO2 ABG HCO3 ABG O2 Saturation ABG Base Excess ABG Hemoglobin ABG Oxyhemoglobin ABG Sodium ABG Potassium ABG Chloride ABG Glucose Oxyhemoglobin Carboxyhemoglobin Sodium 135 L Potassium 3.4 L Chloride 91.8 L Carbon Dioxide 36 H BUN 57 H Creatinine 6.8 H Glucose 163 H POC Glucose Hemoglobin A1c Lactic Acid Calcium 7.0 L Phosphorus Magnesium 1.60 L Ferritin Total Bilirubin AST ALT Lactate Dehydrogenase C-Reactive Protein Albumin Triglycerides Arterial Blood Glucose Arterial Blood Ionized Calcium Urine Creatinine Coronavirus (PCR) Crossmatch 02/12/21 02/12/21 02/12/21 10:45 12:04 17:19 WBC RBC Hgb Hct MCV MCH MCHC RDW Plt Count Lymph % (Auto) Lymph # (Auto) Seg Neutrophils % Seg Neuts % (Manual) Lymphocytes % (Manual) Nucleated RBC % Seg Neutrophils # Seg Neutrophils # Man Lymphocytes # (Manual) Eosinophils # (Manual) INR D-Dimer ABG pH POC ABG pCO2 POC ABG pO2 ABG pO2 ABG HCO3 ABG O2 Saturation ABG Base Excess ABG Hemoglobin ABG Oxyhemoglobin ABG Sodium ABG Potassium ABG Chloride ABG Glucose Oxyhemoglobin Carboxyhemoglobin Sodium Potassium Chloride Carbon Dioxide BUN Creatinine Glucose POC Glucose 165 H 165 H Hemoglobin A1c Lactic Acid Calcium Phosphorus Magnesium Ferritin Total Bilirubin AST ALT Lactate Dehydrogenase C-Reactive Protein Albumin Triglycerides 182 H Arterial Blood Glucose Arterial Blood Ionized Calcium Urine Creatinine Coronavirus (PCR) Crossmatch 02/12/21 02/13/21 02/13/21 23:18 05:00 05:36 WBC RBC Hgb Hct MCV MCH MCHC RDW Plt Count Lymph % (Auto) Lymph # (Auto) Seg Neutrophils % Seg Neuts % (Manual) Lymphocytes % (Manual) Nucleated RBC % Seg Neutrophils # Seg Neutrophils # Man Lymphocytes # (Manual) Eosinophils # (Manual) INR D-Dimer ABG pH POC ABG pCO2 60.8 H POC ABG pO2 76.4 L ABG pO2 ABG HCO3 ABG O2 Saturation ABG Base Excess ABG Hemoglobin 7.4 L ABG Oxyhemoglobin ABG Sodium 133.2 L ABG Potassium 3.3 L ABG Chloride 96.0 L ABG Glucose 168 H Oxyhemoglobin Carboxyhemoglobin Sodium Potassium Chloride Carbon Dioxide BUN Creatinine Glucose POC Glucose 163 H 151 H Hemoglobin A1c Lactic Acid Calcium Phosphorus Magnesium Ferritin Total Bilirubin AST ALT Lactate Dehydrogenase C-Reactive Protein Albumin Triglycerides Arterial Blood Glucose 168 H Arterial Blood Ionized Calcium 4.3 L Urine Creatinine Coronavirus (PCR) Crossmatch 02/13/21 02/13/21 02/13/21 06:40 06:40 06:40 WBC RBC 2.19 L Hgb 7.0 L Hct 20.8 L MCV 95 H MCH MCHC RDW Plt Count Lymph % (Auto) Lymph # (Auto) Seg Neutrophils % Seg Neuts % (Manual) Lymphocytes % (Manual) Nucleated RBC % Seg Neutrophils # Seg Neutrophils # Man Lymphocytes # (Manual) Eosinophils # (Manual) INR D-Dimer ABG pH POC ABG pCO2 POC ABG pO2 ABG pO2 ABG HCO3 ABG O2 Saturation ABG Base Excess ABG Hemoglobin ABG Oxyhemoglobin ABG Sodium ABG Potassium ABG Chloride ABG Glucose Oxyhemoglobin Carboxyhemoglobin Sodium 135 L Potassium 3.4 L Chloride 93.0 L Carbon Dioxide 32 H BUN 46 H Creatinine 5.8 H Glucose 148 H POC Glucose Hemoglobin A1c Lactic Acid Calcium 7.9 L Phosphorus Magnesium Ferritin Total Bilirubin AST ALT Lactate Dehydrogenase C-Reactive Protein 16.80 H Albumin Triglycerides Arterial Blood Glucose Arterial Blood Ionized Calcium Urine Creatinine Coronavirus (PCR) Crossmatch 02/13/21 02/13/21 02/13/21 06:40 07:38 07:38 WBC RBC Hgb Hct MCV MCH MCHC RDW Plt Count Lymph % (Auto) Lymph # (Auto) Seg Neutrophils % Seg Neuts % (Manual) Lymphocytes % (Manual) Nucleated RBC % Seg Neutrophils # Seg Neutrophils # Man Lymphocytes # (Manual) Eosinophils # (Manual) INR D-Dimer 1722.16 H ABG pH POC ABG pCO2 POC ABG pO2 ABG pO2 ABG HCO3 ABG O2 Saturation ABG Base Excess ABG Hemoglobin ABG Oxyhemoglobin ABG Sodium ABG Potassium ABG Chloride ABG Glucose Oxyhemoglobin Carboxyhemoglobin Sodium Potassium Chloride Carbon Dioxide BUN Creatinine Glucose POC Glucose Hemoglobin A1c Lactic Acid Calcium Phosphorus Magnesium 1.60 L Ferritin 976.5 H Total Bilirubin AST ALT Lactate Dehydrogenase C-Reactive Protein Albumin Triglycerides Arterial Blood Glucose Arterial Blood Ionized Calcium Urine Creatinine Coronavirus (PCR) Crossmatch 02/13/21 02/13/21 02/13/21 12:24 16:57 23:32 WBC RBC Hgb Hct MCV MCH MCHC RDW Plt Count Lymph % (Auto) Lymph # (Auto) Seg Neutrophils % Seg Neuts % (Manual) Lymphocytes % (Manual) Nucleated RBC % Seg Neutrophils # Seg Neutrophils # Man Lymphocytes # (Manual) Eosinophils # (Manual) INR D-Dimer ABG pH POC ABG pCO2 POC ABG pO2 ABG pO2 ABG HCO3 ABG O2 Saturation ABG Base Excess ABG Hemoglobin ABG Oxyhemoglobin ABG Sodium ABG Potassium ABG Chloride ABG Glucose Oxyhemoglobin Carboxyhemoglobin Sodium Potassium Chloride Carbon Dioxide BUN Creatinine Glucose POC Glucose 141 H 156 H 161 H Hemoglobin A1c Lactic Acid Calcium Phosphorus Magnesium Ferritin Total Bilirubin AST ALT Lactate Dehydrogenase C-Reactive Protein Albumin Triglycerides Arterial Blood Glucose Arterial Blood Ionized Calcium Urine Creatinine Coronavirus (PCR) Crossmatch 02/14/21 02/14/21 02/14/21 04:00 05:41 11:00 WBC RBC 2.14 L Hgb 6.9 L Hct 20.7 L MCV 97 H MCH 33 H MCHC RDW Plt Count Lymph % (Auto) Lymph # (Auto) Seg Neutrophils % Seg Neuts % (Manual) Lymphocytes % (Manual) Nucleated RBC % Seg Neutrophils # Seg Neutrophils # Man Lymphocytes # (Manual) Eosinophils # (Manual) INR D-Dimer ABG pH POC ABG pCO2 POC ABG pO2 ABG pO2 ABG HCO3 ABG O2 Saturation ABG Base Excess ABG Hemoglobin ABG Oxyhemoglobin ABG Sodium ABG Potassium ABG Chloride ABG Glucose Oxyhemoglobin Carboxyhemoglobin Sodium Potassium Chloride Carbon Dioxide BUN Creatinine Glucose POC Glucose 143 H Hemoglobin A1c Lactic Acid Calcium Phosphorus Magnesium Ferritin Total Bilirubin AST ALT Lactate Dehydrogenase C-Reactive Protein Albumin Triglycerides Arterial Blood Glucose Arterial Blood Ionized Calcium Urine Creatinine Coronavirus (PCR) Crossmatch See Detail 02/14/21 02/14/21 02/14/21 11:51 18:08 23:41 WBC RBC Hgb Hct MCV MCH MCHC RDW Plt Count Lymph % (Auto) Lymph # (Auto) Seg Neutrophils % Seg Neuts % (Manual) Lymphocytes % (Manual) Nucleated RBC % Seg Neutrophils # Seg Neutrophils # Man Lymphocytes # (Manual) Eosinophils # (Manual) INR D-Dimer ABG pH POC ABG pCO2 POC ABG pO2 ABG pO2 ABG HCO3 ABG O2 Saturation ABG Base Excess ABG Hemoglobin ABG Oxyhemoglobin ABG Sodium ABG Potassium ABG Chloride ABG Glucose Oxyhemoglobin Carboxyhemoglobin Sodium Potassium Chloride Carbon Dioxide BUN Creatinine Glucose POC Glucose 113 H 123 H 120 H Hemoglobin A1c Lactic Acid Calcium Phosphorus Magnesium Ferritin Total Bilirubin AST ALT Lactate Dehydrogenase C-Reactive Protein Albumin Triglycerides Arterial Blood Glucose Arterial Blood Ionized Calcium Urine Creatinine Coronavirus (PCR) Crossmatch 02/14/21 02/15/21 02/15/21 Unknown 05:00 05:00 WBC RBC Hgb Hct MCV MCH MCHC RDW Plt Count Lymph % (Auto) Lymph # (Auto) Seg Neutrophils % Seg Neuts % (Manual) Lymphocytes % (Manual) Nucleated RBC % Seg Neutrophils # Seg Neutrophils # Man Lymphocytes # (Manual) Eosinophils # (Manual) INR D-Dimer ABG pH POC ABG pCO2 53.4 H POC ABG pO2 61.8 L ABG pO2 ABG HCO3 ABG O2 Saturation ABG Base Excess ABG Hemoglobin 7.7 L ABG Oxyhemoglobin 88.8 L ABG Sodium ABG Potassium ABG Chloride ABG Glucose 143 H Oxyhemoglobin Carboxyhemoglobin 1.6 H Sodium Potassium Chloride 96.9 L Carbon Dioxide 33 H 31 H BUN 40 H 38 H Creatinine 5.2 H 4.8 H Glucose 152 H 132 H POC Glucose Hemoglobin A1c Lactic Acid Calcium 7.9 L Phosphorus Magnesium Ferritin Total Bilirubin AST ALT Lactate Dehydrogenase C-Reactive Protein Albumin Triglycerides Arterial Blood Glucose 143 H Arterial Blood Ionized Calcium Urine Creatinine Coronavirus (PCR) Crossmatch 02/15/21 02/15/21 02/15/21 05:00 05:27 12:05 WBC RBC 2.30 L Hgb 7.1 L Hct 22.1 L MCV 96 H MCH MCHC RDW 15.7 H Plt Count Lymph % (Auto) 11.0 L Lymph # (Auto) 1.1 L Seg Neutrophils % 83.0 H Seg Neuts % (Manual) Lymphocytes % (Manual) Nucleated RBC % Seg Neutrophils # 8.6 H Seg Neutrophils # Man Lymphocytes # (Manual) Eosinophils # (Manual) INR D-Dimer ABG pH POC ABG pCO2 POC ABG pO2 ABG pO2 ABG HCO3 ABG O2 Saturation ABG Base Excess ABG Hemoglobin ABG Oxyhemoglobin ABG Sodium ABG Potassium ABG Chloride ABG Glucose Oxyhemoglobin Carboxyhemoglobin Sodium Potassium Chloride Carbon Dioxide BUN Creatinine Glucose POC Glucose 133 H 123 H Hemoglobin A1c Lactic Acid Calcium Phosphorus Magnesium Ferritin Total Bilirubin AST ALT Lactate Dehydrogenase C-Reactive Protein Albumin Triglycerides Arterial Blood Glucose Arterial Blood Ionized Calcium Urine Creatinine Coronavirus (PCR) Crossmatch 02/15/21 02/15/21 02/16/21 17:08 23:52 03:44 WBC RBC Hgb Hct MCV MCH MCHC RDW Plt Count Lymph % (Auto) Lymph # (Auto) Seg Neutrophils % Seg Neuts % (Manual) Lymphocytes % (Manual) Nucleated RBC % Seg Neutrophils # Seg Neutrophils # Man Lymphocytes # (Manual) Eosinophils # (Manual) INR D-Dimer ABG pH 7.307 L POC ABG pCO2 59.5 H POC ABG pO2 63.2 L ABG pO2 ABG HCO3 ABG O2 Saturation ABG Base Excess ABG Hemoglobin 9.3 L ABG Oxyhemoglobin ABG Sodium ABG Potassium ABG Chloride ABG Glucose 148 H Oxyhemoglobin Carboxyhemoglobin Sodium Potassium Chloride Carbon Dioxide BUN Creatinine Glucose POC Glucose 129 H 136 H Hemoglobin A1c Lactic Acid Calcium Phosphorus Magnesium Ferritin Total Bilirubin AST ALT Lactate Dehydrogenase C-Reactive Protein Albumin Triglycerides Arterial Blood Glucose 148 H Arterial Blood Ionized Calcium Urine Creatinine Coronavirus (PCR) Crossmatch 02/16/21 02/16/21 02/16/21 05:26 06:00 12:14 WBC RBC Hgb Hct MCV MCH MCHC RDW Plt Count Lymph % (Auto) Lymph # (Auto) Seg Neutrophils % Seg Neuts % (Manual) Lymphocytes % (Manual) Nucleated RBC % Seg Neutrophils # Seg Neutrophils # Man Lymphocytes # (Manual) Eosinophils # (Manual) INR D-Dimer ABG pH POC ABG pCO2 POC ABG pO2 ABG pO2 ABG HCO3 ABG O2 Saturation ABG Base Excess ABG Hemoglobin ABG Oxyhemoglobin ABG Sodium ABG Potassium ABG Chloride ABG Glucose Oxyhemoglobin Carboxyhemoglobin Sodium Potassium Chloride Carbon Dioxide BUN 52 H Creatinine 6.0 H Glucose 138 H POC Glucose 135 H 128 H Hemoglobin A1c Lactic Acid Calcium Phosphorus Magnesium Ferritin Total Bilirubin AST ALT Lactate Dehydrogenase C-Reactive Protein Albumin Triglycerides Arterial Blood Glucose Arterial Blood Ionized Calcium Urine Creatinine Coronavirus (PCR) Crossmatch 02/16/21 02/16/21 02/16/21 17:09 17:09 17:09 WBC RBC Hgb Hct MCV MCH MCHC RDW Plt Count Lymph % (Auto) Lymph # (Auto) Seg Neutrophils % Seg Neuts % (Manual) Lymphocytes % (Manual) Nucleated RBC % Seg Neutrophils # Seg Neutrophils # Man Lymphocytes # (Manual) Eosinophils # (Manual) INR D-Dimer 4256.08 H ABG pH POC ABG pCO2 POC ABG pO2 ABG pO2 ABG HCO3 ABG O2 Saturation ABG Base Excess ABG Hemoglobin ABG Oxyhemoglobin ABG Sodium ABG Potassium ABG Chloride ABG Glucose Oxyhemoglobin Carboxyhemoglobin Sodium Potassium Chloride Carbon Dioxide BUN Creatinine Glucose POC Glucose Hemoglobin A1c Lactic Acid Calcium Phosphorus Magnesium Ferritin 980.6 H Total Bilirubin AST ALT Lactate Dehydrogenase 441 H C-Reactive Protein 20.20 H Albumin Triglycerides Arterial Blood Glucose Arterial Blood Ionized Calcium Urine Creatinine Coronavirus (PCR) Crossmatch 02/16/21 02/16/21 02/16/21 17:25 23:16 Unknown WBC RBC 2.19 L Hgb 7.1 L Hct 21.3 L MCV 98 H MCH 33 H MCHC RDW 16.0 H Plt Count Lymph % (Auto) Lymph # (Auto) Seg Neutrophils % Seg Neuts % (Manual) 85.0 H Lymphocytes % (Manual) 6.0 L Nucleated RBC % 4.0 H Seg Neutrophils # Seg Neutrophils # Man Lymphocytes # (Manual) 0.5 L Eosinophils # (Manual) INR D-Dimer ABG pH POC ABG pCO2 POC ABG pO2 ABG pO2 ABG HCO3 ABG O2 Saturation ABG Base Excess ABG Hemoglobin ABG Oxyhemoglobin ABG Sodium ABG Potassium ABG Chloride ABG Glucose Oxyhemoglobin Carboxyhemoglobin Sodium Potassium Chloride Carbon Dioxide BUN Creatinine Glucose POC Glucose 146 H 150 H Hemoglobin A1c Lactic Acid Calcium Phosphorus Magnesium Ferritin Total Bilirubin AST ALT Lactate Dehydrogenase C-Reactive Protein Albumin Triglycerides Arterial Blood Glucose Arterial Blood Ionized Calcium Urine Creatinine Coronavirus (PCR) Crossmatch 02/17/21 02/17/21 02/17/21 04:00 04:14 04:14 WBC RBC Hgb Hct MCV MCH MCHC RDW Plt Count Lymph % (Auto) Lymph # (Auto) Seg Neutrophils % Seg Neuts % (Manual) Lymphocytes % (Manual) Nucleated RBC % Seg Neutrophils # Seg Neutrophils # Man Lymphocytes # (Manual) Eosinophils # (Manual) INR D-Dimer 3183.35 H ABG pH 7.293 L POC ABG pCO2 59.5 H POC ABG pO2 68.1 L ABG pO2 ABG HCO3 ABG O2 Saturation ABG Base Excess ABG Hemoglobin 7.7 L ABG Oxyhemoglobin ABG Sodium 133.4 L ABG Potassium ABG Chloride ABG Glucose 143 H Oxyhemoglobin Carboxyhemoglobin Sodium 136 L Potassium Chloride 97.3 L Carbon Dioxide BUN 49 H Creatinine 5.3 H Glucose 139 H POC Glucose Hemoglobin A1c Lactic Acid Calcium Phosphorus Magnesium Ferritin Total Bilirubin AST ALT Lactate Dehydrogenase C-Reactive Protein Albumin Triglycerides Arterial Blood Glucose 143 H Arterial Blood Ionized Calcium Urine Creatinine Coronavirus (PCR) Crossmatch 02/17/21 02/17/21 02/17/21 04:14 04:14 04:14 WBC RBC 2.14 L Hgb 6.9 L Hct 21.0 L MCV 98 H MCH MCHC RDW 15.8 H Plt Count Lymph % (Auto) Lymph # (Auto) Seg Neutrophils % Seg Neuts % (Manual) Lymphocytes % (Manual) Nucleated RBC % Seg Neutrophils # Seg Neutrophils # Man Lymphocytes # (Manual) Eosinophils # (Manual) INR D-Dimer ABG pH POC ABG pCO2 POC ABG pO2 ABG pO2 ABG HCO3 ABG O2 Saturation ABG Base Excess ABG Hemoglobin ABG Oxyhemoglobin ABG Sodium ABG Potassium ABG Chloride ABG Glucose Oxyhemoglobin Carboxyhemoglobin Sodium Potassium Chloride Carbon Dioxide BUN Creatinine Glucose POC Glucose Hemoglobin A1c Lactic Acid Calcium Phosphorus Magnesium Ferritin 894.0 H Total Bilirubin AST ALT Lactate Dehydrogenase 399 H C-Reactive Protein 22.10 H Albumin Triglycerides Arterial Blood Glucose Arterial Blood Ionized Calcium Urine Creatinine Coronavirus (PCR) Crossmatch 02/17/21 02/17/21 02/17/21 06:06 07:45 12:25 WBC RBC Hgb 7.6 L Hct 22.8 L MCV MCH MCHC RDW Plt Count Lymph % (Auto) Lymph # (Auto) Seg Neutrophils % Seg Neuts % (Manual) Lymphocytes % (Manual) Nucleated RBC % Seg Neutrophils # Seg Neutrophils # Man Lymphocytes # (Manual) Eosinophils # (Manual) INR D-Dimer ABG pH POC ABG pCO2 POC ABG pO2 ABG pO2 ABG HCO3 ABG O2 Saturation ABG Base Excess ABG Hemoglobin ABG Oxyhemoglobin ABG Sodium ABG Potassium ABG Chloride ABG Glucose Oxyhemoglobin Carboxyhemoglobin Sodium Potassium Chloride Carbon Dioxide BUN Creatinine Glucose POC Glucose 134 H Hemoglobin A1c Lactic Acid Calcium Phosphorus Magnesium Ferritin Total Bilirubin AST ALT Lactate Dehydrogenase C-Reactive Protein Albumin Triglycerides Arterial Blood Glucose Arterial Blood Ionized Calcium Urine Creatinine Coronavirus (PCR) Crossmatch See Detail 02/17/21 02/17/21 02/17/21 12:35 17:56 23:34 WBC RBC Hgb Hct MCV MCH MCHC RDW Plt Count Lymph % (Auto) Lymph # (Auto) Seg Neutrophils % Seg Neuts % (Manual) Lymphocytes % (Manual) Nucleated RBC % Seg Neutrophils # Seg Neutrophils # Man Lymphocytes # (Manual) Eosinophils # (Manual) INR D-Dimer ABG pH POC ABG pCO2 POC ABG pO2 ABG pO2 ABG HCO3 ABG O2 Saturation ABG Base Excess ABG Hemoglobin ABG Oxyhemoglobin ABG Sodium ABG Potassium ABG Chloride ABG Glucose Oxyhemoglobin Carboxyhemoglobin Sodium Potassium Chloride Carbon Dioxide BUN Creatinine Glucose POC Glucose 114 H 128 H 120 H Hemoglobin A1c Lactic Acid Calcium Phosphorus Magnesium Ferritin Total Bilirubin AST ALT Lactate Dehydrogenase C-Reactive Protein Albumin Triglycerides Arterial Blood Glucose Arterial Blood Ionized Calcium Urine Creatinine Coronavirus (PCR) Crossmatch 02/18/21 02/18/21 02/18/21 04:03 04:55 05:02 WBC RBC 2.40 L Hgb 7.5 L Hct 23.1 L MCV 96 H MCH MCHC RDW 16.8 H Plt Count Lymph % (Auto) Lymph # (Auto) Seg Neutrophils % Seg Neuts % (Manual) Lymphocytes % (Manual) Nucleated RBC % Seg Neutrophils # Seg Neutrophils # Man Lymphocytes # (Manual) Eosinophils # (Manual) INR D-Dimer ABG pH 7.219 L POC ABG pCO2 58.7 H POC ABG pO2 64.2 L ABG pO2 ABG HCO3 ABG O2 Saturation ABG Base Excess ABG Hemoglobin ABG Oxyhemoglobin ABG Sodium 130.5 L ABG Potassium ABG Chloride ABG Glucose 147 H Oxyhemoglobin Carboxyhemoglobin Sodium 134 L Potassium Chloride 97.9 L Carbon Dioxide BUN 64 H Creatinine 6.5 H Glucose 135 H POC Glucose Hemoglobin A1c Lactic Acid Calcium 8.0 L Phosphorus Magnesium Ferritin Total Bilirubin AST ALT Lactate Dehydrogenase C-Reactive Protein Albumin Triglycerides Arterial Blood Glucose 147 H Arterial Blood Ionized Calcium Urine Creatinine Coronavirus (PCR) Crossmatch 02/18/21 02/18/21 02/18/21 05:27 10:00 11:51 WBC RBC Hgb Hct MCV MCH MCHC RDW Plt Count Lymph % (Auto) Lymph # (Auto) Seg Neutrophils % Seg Neuts % (Manual) Lymphocytes % (Manual) Nucleated RBC % Seg Neutrophils # Seg Neutrophils # Man Lymphocytes # (Manual) Eosinophils # (Manual) INR D-Dimer ABG pH POC ABG pCO2 POC ABG pO2 ABG pO2 ABG HCO3 ABG O2 Saturation ABG Base Excess ABG Hemoglobin ABG Oxyhemoglobin ABG Sodium ABG Potassium ABG Chloride ABG Glucose Oxyhemoglobin Carboxyhemoglobin Sodium Potassium Chloride Carbon Dioxide BUN Creatinine Glucose POC Glucose 130 H 123 H Hemoglobin A1c Lactic Acid Calcium Phosphorus Magnesium Ferritin Total Bilirubin AST ALT Lactate Dehydrogenase C-Reactive Protein Albumin Triglycerides Arterial Blood Glucose Arterial Blood Ionized Calcium Urine Creatinine Coronavirus (PCR) Positive A Crossmatch 02/18/21 02/18/21 02/19/21 18:10 23:35 05:00 WBC RBC Hgb Hct MCV MCH MCHC RDW Plt Count Lymph % (Auto) Lymph # (Auto) Seg Neutrophils % Seg Neuts % (Manual) Lymphocytes % (Manual) Nucleated RBC % Seg Neutrophils # Seg Neutrophils # Man Lymphocytes # (Manual) Eosinophils # (Manual) INR D-Dimer ABG pH 7.232 L POC ABG pCO2 64.3 H POC ABG pO2 ABG pO2 ABG HCO3 ABG O2 Saturation ABG Base Excess ABG Hemoglobin 8.1 L ABG Oxyhemoglobin ABG Sodium 133.5 L ABG Potassium ABG Chloride ABG Glucose 148 H Oxyhemoglobin Carboxyhemoglobin 1.6 H Sodium Potassium Chloride Carbon Dioxide BUN Creatinine Glucose POC Glucose 123 H 137 H Hemoglobin A1c Lactic Acid Calcium Phosphorus Magnesium Ferritin Total Bilirubin AST ALT Lactate Dehydrogenase C-Reactive Protein Albumin Triglycerides Arterial Blood Glucose 148 H Arterial Blood Ionized Calcium Urine Creatinine Coronavirus (PCR) Crossmatch 02/19/21 02/19/21 02/19/21 05:12 05:45 05:45 WBC RBC Hgb Hct MCV MCH MCHC RDW Plt Count Lymph % (Auto) Lymph # (Auto) Seg Neutrophils % Seg Neuts % (Manual) Lymphocytes % (Manual) Nucleated RBC % Seg Neutrophils # Seg Neutrophils # Man Lymphocytes # (Manual) Eosinophils # (Manual) INR D-Dimer 4840.82 H ABG pH POC ABG pCO2 POC ABG pO2 ABG pO2 ABG HCO3 ABG O2 Saturation ABG Base Excess ABG Hemoglobin ABG Oxyhemoglobin ABG Sodium ABG Potassium ABG Chloride ABG Glucose Oxyhemoglobin Carboxyhemoglobin Sodium 135 L Potassium Chloride 97.8 L Carbon Dioxide BUN 58 H Creatinine 5.6 H Glucose 140 H POC Glucose 134 H Hemoglobin A1c Lactic Acid Calcium Phosphorus Magnesium Ferritin Total Bilirubin AST ALT Lactate Dehydrogenase 345 H C-Reactive Protein 15.20 H Albumin Triglycerides 195 H Arterial Blood Glucose Arterial Blood Ionized Calcium Urine Creatinine Coronavirus (PCR) Crossmatch 02/19/21 02/19/21 02/19/21 05:45 12:00 17:48 WBC RBC Hgb Hct MCV MCH MCHC RDW Plt Count Lymph % (Auto) Lymph # (Auto) Seg Neutrophils % Seg Neuts % (Manual) Lymphocytes % (Manual) Nucleated RBC % Seg Neutrophils # Seg Neutrophils # Man Lymphocytes # (Manual) Eosinophils # (Manual) INR D-Dimer ABG pH POC ABG pCO2 POC ABG pO2 ABG pO2 ABG HCO3 ABG O2 Saturation ABG Base Excess ABG Hemoglobin ABG Oxyhemoglobin ABG Sodium ABG Potassium ABG Chloride ABG Glucose Oxyhemoglobin Carboxyhemoglobin Sodium Potassium Chloride Carbon Dioxide BUN Creatinine Glucose POC Glucose 122 H 119 H Hemoglobin A1c Lactic Acid Calcium Phosphorus Magnesium Ferritin 951.8 H Total Bilirubin AST ALT Lactate Dehydrogenase C-Reactive Protein Albumin Triglycerides Arterial Blood Glucose Arterial Blood Ionized Calcium Urine Creatinine Coronavirus (PCR) Crossmatch 02/20/21 02/20/21 02/20/21 03:20 04:00 11:48 WBC RBC Hgb Hct MCV MCH MCHC RDW Plt Count Lymph % (Auto) Lymph # (Auto) Seg Neutrophils % Seg Neuts % (Manual) Lymphocytes % (Manual) Nucleated RBC % Seg Neutrophils # Seg Neutrophils # Man Lymphocytes # (Manual) Eosinophils # (Manual) INR D-Dimer ABG pH 7.276 L POC ABG pCO2 57.3 H POC ABG pO2 71.0 L ABG pO2 ABG HCO3 ABG O2 Saturation ABG Base Excess ABG Hemoglobin 8.2 L ABG Oxyhemoglobin 91.9 L ABG Sodium 128.1 L ABG Potassium 4.8 H ABG Chloride ABG Glucose Oxyhemoglobin Carboxyhemoglobin 1.6 H Sodium 136 L Potassium Chloride Carbon Dioxide BUN 69 H Creatinine 6.4 H Glucose POC Glucose 131 H Hemoglobin A1c Lactic Acid Calcium 8.1 L Phosphorus Magnesium Ferritin Total Bilirubin AST ALT Lactate Dehydrogenase C-Reactive Protein Albumin Triglycerides Arterial Blood Glucose Arterial Blood Ionized Calcium 4.5 L Urine Creatinine Coronavirus (PCR) Crossmatch 02/20/21 02/20/21 02/21/21 18:05 23:28 02:53 WBC RBC Hgb Hct MCV MCH MCHC RDW Plt Count Lymph % (Auto) Lymph # (Auto) Seg Neutrophils % Seg Neuts % (Manual) Lymphocytes % (Manual) Nucleated RBC % Seg Neutrophils # Seg Neutrophils # Man Lymphocytes # (Manual) Eosinophils # (Manual) INR D-Dimer ABG pH 7.288 L POC ABG pCO2 52.7 H POC ABG pO2 81.5 L ABG pO2 ABG HCO3 ABG O2 Saturation ABG Base Excess ABG Hemoglobin 8.5 L ABG Oxyhemoglobin 93.6 L ABG Sodium 132.5 L ABG Potassium 4.6 H ABG Chloride ABG Glucose 106 H Oxyhemoglobin Carboxyhemoglobin 1.6 H Sodium Potassium Chloride Carbon Dioxide BUN Creatinine Glucose POC Glucose 114 H 118 H Hemoglobin A1c Lactic Acid Calcium Phosphorus Magnesium Ferritin Total Bilirubin AST ALT Lactate Dehydrogenase C-Reactive Protein Albumin Triglycerides Arterial Blood Glucose 106 H Arterial Blood Ionized Calcium 4.4 L Urine Creatinine Coronavirus (PCR) Crossmatch 02/21/21 05:29 WBC RBC Hgb Hct MCV MCH MCHC RDW Plt Count Lymph % (Auto) Lymph # (Auto) Seg Neutrophils % Seg Neuts % (Manual) Lymphocytes % (Manual) Nucleated RBC % Seg Neutrophils # Seg Neutrophils # Man Lymphocytes # (Manual) Eosinophils # (Manual) INR D-Dimer ABG pH POC ABG pCO2 POC ABG pO2 ABG pO2 ABG HCO3 ABG O2 Saturation ABG Base Excess ABG Hemoglobin ABG Oxyhemoglobin ABG Sodium ABG Potassium ABG Chloride ABG Glucose Oxyhemoglobin Carboxyhemoglobin Sodium Potassium Chloride Carbon Dioxide BUN Creatinine Glucose POC Glucose 111 H Hemoglobin A1c Lactic Acid Calcium Phosphorus Magnesium Ferritin Total Bilirubin AST ALT Lactate Dehydrogenase C-Reactive Protein Albumin Triglycerides Arterial Blood Glucose Arterial Blood Ionized Calcium Urine Creatinine Coronavirus (PCR) Crossmatch
--- NOTE | 2021-02-21 13:19 | Progress Note ---
Assessment and Plan Acute Hypoxic respiratory failure COVID-19 PNA Severe sepsis with septic shock Acute kidney injury secondary to ATN Hyperkalemia Hypernatremia DM2 on insulin Plan: HD today. Assess need for HD on daily basis Initiated on HD on 02/03/21 s/p Right IJ Trialysis dialysis catheter placement by Dr Reddy Strict I&O Renally dose meds Subjective Date of service: 02/21/21 Principal diagnosis: DEISI Interval history: Intubated. Objective - Exam Narrative Exam: GE:Intubated HEENT:Limited due to Covid Neck:Limited due to Covid Chest:On Vent CVS:Limited due to Covid Abd:Limited due to Covid Neuro:Sedated - Vital Signs Vital signs: Vital Signs - 12hr 02/21/21 02/21/21 02/21/21 01:30 02:00 02:30 Temperature Pulse Rate 98 H 97 H 98 H Pulse Rate [ From Monitor] Respiratory 34 H 35 H 34 H Rate Blood Pressure 117/69 133/70 138/72 O2 Sat by Pulse 96 96 97 Oximetry 02/21/21 02/21/21 02/21/21 03:00 03:30 04:00 Temperature 99.5 F Pulse Rate 100 H 100 H 101 H Pulse Rate [ 103 H From Monitor] Respiratory 34 H 35 H 34 H Rate Blood Pressure 135/74 141/76 140/74 O2 Sat by Pulse 94 93 93 Oximetry 02/21/21 02/21/21 02/21/21 04:30 04:35 05:00 Temperature Pulse Rate 100 H 100 H 103 H Pulse Rate [ From Monitor] Respiratory 35 H 35 H Rate Blood Pressure 150/72 143/76 O2 Sat by Pulse 94 96 94 Oximetry 02/21/21 02/21/21 02/21/21 05:30 06:00 06:30 Temperature Pulse Rate 103 H 104 H 103 H Pulse Rate [ From Monitor] Respiratory 35 H 35 H 34 H Rate Blood Pressure 137/79 142/74 127/61 O2 Sat by Pulse 100 96 96 Oximetry 02/21/21 02/21/21 02/21/21 07:00 07:30 08:00 Temperature 98.7 F Pulse Rate 102 H 101 H 100 H Pulse Rate [ From Monitor] Respiratory 36 H 34 H 35 H Rate Blood Pressure 113/57 120/62 140/72 O2 Sat by Pulse 92 100 96 Oximetry 02/21/21 02/21/21 02/21/21 08:30 09:00 09:30 Temperature Pulse Rate 100 H 104 H 109 H Pulse Rate [ From Monitor] Respiratory 33 H 29 H 34 H Rate Blood Pressure 119/60 132/70 129/75 O2 Sat by Pulse 96 97 93 Oximetry 02/21/21 02/21/21 02/21/21 10:00 10:30 11:00 Temperature Pulse Rate 111 H 112 H 115 H Pulse Rate [ From Monitor] Respiratory 33 H 34 H 37 H Rate Blood Pressure 139/72 147/70 157/81 O2 Sat by Pulse 100 94 91 Oximetry 02/21/21 11:44 Temperature Pulse Rate 119 H Pulse Rate [ From Monitor] Respiratory Rate Blood Pressure 161/81 O2 Sat by Pulse 95 Oximetry - Lab 02/18/21 05:02 02/20/21 04:00 Most recent lab results ABG pH 7.288 (7.320-7.450) L 02/21/21 02:53 ABG pCO2 51.2 mm Hg 02/12/21 04:41 ABG pO2 69.0 mm Hg (80.0-90.0) L 02/12/21 04:41 ABG HCO3 32.5 mmol/L (20.0-26.0) H 02/12/21 04:41 ABG O2 Saturation 95.4 (0-100) 02/21/21 02:53 Calcium 8.1 mg/dL (8.4-10.2) L 02/20/21 04:00 Phosphorus 3.90 mg/dL (2.5-4.5) 02/13/21 06:40 Magnesium 1.70 mg/dL (1.7-2.3) 02/16/21 17:09 Urine Creatinine 53.0 mg/dL (0.1-20.0) H 01/30/21 12:00 Urine Sodium 28 mmol/L 01/22/21 22:39 Medications & Allergies - Medications Allergies/Adverse Reactions: Allergies No Known Allergies Allergy (Unverified 03/12/20 13:41) Home Medications: Home Medications Medication Instructions Recorded Confirmed Last Taken Type Insulin NPH/Regular [Novolin 70/30] 18 unit SUB-Q TIDAC #1 vial 03/12/20 Unknown Rx Syringe-Needle,Insulin,0.5 ml 1 box MC TID #1 box 03/12/20 Unknown Rx [Insulin Syringe/Needle 0.5 ML] Active Medications: Generic Name Dose Route Start Last Admin Trade Name Freq PRN Reason Stop Dose Admin Acetaminophen 650 mg 01/23/21 02:25 02/11/21 18:20 Acetaminophen 650 Mg Rect Supp MI 650 mg Q4H PRN Administration Pain, Mild (1-3) Acetaminophen 650 mg 01/24/21 12:58 02/15/21 18:06 Acetaminophen 325 Mg/10.15 Ml Oral Liqd Unit Dose FEEDTUBE 650 mg Q6H PRN Administration Pain, Mild (1-3) Lipase/Protease/Amylase 1 each 01/26/21 14:25 Lipase 10,500/Protease 25,000/Amylase 43,750 (Units) Dr Cap FEEDTUBE PRN PRN For Clogged Feeding Tube Dextrose 50 ml 01/27/21 07:24 Dextrose 50% In Water (25gm) 50 Ml Syringe IV Q30MIN PRN Hypoglycemia Protocol Fentanyl 50 mcg 01/22/21 22:39 02/10/21 13:46 Fentanyl 100 Mcg/2 Ml Inj IV 50 mcg Q10MIN PRN Administration ANALGESIA Heparin Sodium (Porcine) 2,000 unit 02/11/21 09:38 Heparin 10,000 Units/10 Ml Vial IV SAGRARIO PRN hemodialysis Heparin Sodium (Porcine) 5,000 unit 02/19/21 14:00 02/21/21 06:41 Heparin 5,000 Unit/1 Ml Vial SUB-Q 5,000 unit Q8HR CECE Administration Hydrophilic Ointment 1 applic 01/22/21 22:39 02/17/21 17:14 Lip Therapy Vaseline TP 1 applic Q2HR PRN Administration Dry Lips Fentanyl Citrate 2,000 mcg in 100 mls @ 6.124 mls/hr 01/22/21 23:00 02/21/21 12:44 Fentanyl Drip Premix IV 2 mcg/kg/hr TITR CECE 12.247 mls/hr Administration Protocol 1 MCG/KG/HR Propofol 1,000 mg in 100 mls @ 3.674 mls/hr 01/22/21 23:45 02/21/21 08:30 Diprivan 10 Mg/Ml IV 0 mcg/kg/min TITR CECE 0 mls/hr Titration Protocol 5 MCG/KG/MIN Norepinephrine 4 mg in 250 mls @ 7.5 mls/hr 01/28/21 14:00 02/08/21 06:08 Levophed Drip 4 Mg/Ns 250 Ml IV 0 mcg/min TITR CECE 0 mls/hr Titration Protocol 2 MCG/MIN Dexmedetomidine HCl 1,000 mcg/ 260 mls @ 6.368 mls/hr 01/30/21 20:00 02/21/21 12:23 Sodium Chloride IV Infused TITRATE CECE Titration Protocol 0.2 MCG/KG/HR Sodium Chloride 100 mls @ 999 mls/hr 02/15/21 16:45 Nacl 0.9% IV SAGRARIO PRN Hypotension Lansoprazole 30 mg 02/18/21 10:00 02/21/21 10:13 Lansoprazole 30 Mg Solutab FEEDTUBE 30 mg QDAY CECE Administration Multi-Ingred Cream/Lotion/Oil/Oint 1 applic 01/22/21 22:39 02/01/21 09:33 Mineral Oil/Petrolatum, White Ophth Oint 3.5 Gm OU 1 applic Q4HR PRN Administration Dry Eye(s) Ondansetron HCl 4 mg 01/23/21 02:17 Ondansetron 4 Mg/2 Ml Inj IV Q8H PRN Nausea And Vomiting Senna/Docusate Sodium 2 tab 02/17/21 11:00 02/21/21 10:13 Sennosides/Docusate Sodium 8.6/50 Mg Tab PO 2 tab TID CECE Administration Simple Syrup 15 ml 01/26/21 14:25 Simple Syrup 15 Ml FEEDTUBE PRN PRN Hypoglycemia Simple Syrup 30 ml 01/26/21 14:25 Simple Syrup 15 Ml FEEDTUBE PRN PRN Hypoglycemia Sodium Bicarbonate 325 mg 01/26/21 14:25 Sodium Bicarbonate 325 Mg Tab FEEDTUBE PRN PRN For Clogged Feeding Tube
[2021-02-21] MEDS: NORepinephrine/NS 4 MG-250 ML 4 MG/250 ML BAG IV SCH (16:17)
[2021-02-21] MEDS ORDERED: SODIUM CHLORIDE 0.9% 100 ML IV PRN ×2 (18:04→19:16)
[2021-02-22] MEDS: SENNOSIDES/DOCUSATE SODIUM 8.6/50 MG TAB PO SCH ×4 (00:56→21:27)
[2021-02-22] MEDS: HEPARIN 5,000 UNIT/1 ML VIAL SUB-Q SCH ×4 (00:59→21:27)
[2021-02-22] MEDS: LANSOPRAZOLE 30 MG SOLUTAB FEEDTUBE SCH (09:02)
--- NOTE | 2021-02-22 09:42 | Progress Note ---
Assessment and Plan 60 y/o male with ARDS secondary most likely to COVID 19 pneumonia. 02/22/21: Overall clinical state continues to waxes and wanes. Back up to 80%. Will call family tomorrow to update. Had HD last night, will likely have HD again on Tuesday. Very very guarded prognosis. Will send Triglyceride level anyway given recent change. 02/21/21: Continue to wean FiO2 for sats >88%. Down to 70 now and tolerating. Diprovan is off, nursing working to wean others as well. Can hold on triglycerides now that diprovan is off. Guarded prognosis. 02/20/21: HD today, goal is 3 liters. Continue sedation, did have to increase Diprovan but this is ok. Will need to check levels soon. BM complete. Continue prophylactic anticoagulation. Guarded prognosis. 02/19/21: HD per renal, likely tomorrow. Continue sedation. Has not had a BM so will give full dose of mag citrate today. STarted prophylactic anticoagulation. Wean FiO2 as tolerated. Will call family tomorrow. 02/18/21: HD per renal. continue sedation to help with oxygenation. Overall prognosis remains very guarded to poor. [facility] has been speaking with family so will defer to them. Currently patient is not a candidate for trach given his oxygen and peep requirements. 02/17/21: Fine with cutting back on HD as not really helped with oxygenation. Continue to wean as tolerated for sats >88% and PaO2 >55. Sedation to achieve negative rass scoring. very very guarded to poor prognosis. 02/16/21: HD now. Wean FiO2 for sats> 88%. Agree with stopping ativan and holding on starting diprovan to see if the patient truly needs it. pH holding off bicarb drip goal is >7.2. Very very guarded to poor prognosis. 02/13/21: HD again now. Replace electrolytes per renal. Continue abx therapy per ID. Will get RT to wean FiO2 as not done on yesterday. Will restart diprov an post HD and stop ativan. Check Levels (Triglycerides on Tue or Tuesday). Can stop bicarb drip however must make sure that ABG is checked daily to make sure that pH is good. Very very guarded prognosis. 02/12/21: HD again today. Had a 12 second run of VTACH today as well. Stable. K is low, checking mag levels. Will alert Renal so they can adjust bath as needed. Post HD will start to wean FiO2 again. Unable to prone as patient does not tolerate. Repeat blood cultures negative and first set only showing Coag Negative Staph. Prognosis still remains very very guarded to poor. Will c onsider restarting Diprovan tomorrow. Patient now intubated for 20 days now but not candidate for trach yet given elevated PEEP and FiO2 levels but did discuss on rounds. 02/11/21: Vascath placed today for HD. Orders already in. Wean FiO2 for sats >88%. Abx per ID. Repeat cultures so far negative. Given persistent fevers, will check upper ext dopplers. Prognosis still remains guarded. 02/10/21: Triglycerides improved but current sedation is adequate so will hold on stopping ativan to add propofol back. Awaiting Labs from this morning. Plan to replace HD catheter tomorrow morning as early as possible. Fever curve is trending down. Continue bicarb drip for now. Prognosis remains guarded. WIll speak with family tomorrow to update. 02/09/21: Repeat Triglycerides today. Follow up repeat blood cultures. Given continued fever will hold on replacing vascath today. If fever free the next 24 hours, can place in the morning or Tuesday morning. Will likely need blood with next HD session. Continue bicarb drip to help manage respiratory as well as metabolic acidosis. Wean FiO2 for sats >88% and PaO2 >55. Overall prognosis remains guarded to poor. 02/08/21: Picc out today. Will repeat culture if patient spikes again today. Plan to replace HD catheter either late tomorrow or Tuesday. Continue current level of sedation. Abx therapy per ID. Wean FiO2 as tolerated, doubt will be able to do much until we can resume HD. Guarded prognosis. Replaced potassium. Will need to check in the morning. Will repeat K later this afternoon. 02/07/21: Biggest issue now is that patient's numbers are better with HD but now with bacteremia, concern for line infection. ID is correct in requesting line holiday. Has a picc and an Right IJ Dialysis catheter with 3 ports. Currently getting HD today. Have not seen renal yet. Will pull right IJ line post HD and plan to replace it Tuesday evening or Tuesday. Continue bicarb drip for now and will keep picc as patient has been requiring levophed. If able to be weaned off levophed, will remove picc either tomorrow or Tuesday. Continue Ativan, Precedex and Fent drips, repeat Triglycerides on Tuesday. Very very guarded prognosis. Will remove Black today as well. 02/06/21: Will add bicarb drip at 125/hr. Giving 2 amps of NaHCO3 push now. Will repeat ABG this afternoon, may just ask for Art Line if possible. HD today per renal and I spoke with them about the bicarb drip. Long discussion with Sister, Significant and other and another family member on the phone on yesterday. I tried my best to explain the severity of the clinical state but not sure if they fully understood. The patient is very very ill and history suggests that his outcome will be poor (intubated with covid and renal failure on dialysis). This was expressed with the family. Will continue all supportive measures. Checking triglyceride levels today. 02/05/21: WIll increase PEEP to 16. Can increase pressors if needed for BP control during HD. Follow up cultures. If negative will scan legs and arms again for VTE. Repeat ABG at 1400 today. Will speak with sister and Girlfriend on phone today. 02/04/21: HD again today per renal notes. Likely will need daily HD. New fevers. Will draw blood and urine cultures if able to still make urine.. Repeat CXR. May need to check dopplers if all of those studies are negative. Wean FIO2 as tolerated. Unable to tolerate proning. Guarded to poor prognosis. 02/03/21: HD today per renal. Wean FiO2 as tolerated. No further proning as patient cannot tolerate it, however with volume removal, may consider in the future. Use pressors to keep MAPs 65 and greater for HD purporses so volume can be removed. (IJ was wide open (filled with blood)) with patient sitting up at 45 degrees. Guarded prognosis. 02/02/21: After renal speaks with family, will place vascath today. Agree with bicarb drip but will order some pushes now to help with pH. Overall prognosis is very very guarded to poor now that patient is COVID positive and requiring renal replacement therapy. Mortality is very high in these patients. Continue steroid therapy. Unable to tolerate proning. 01/30/21: Will plan for proning later today. Goal will be at least 12hrs but long is okay. Speaking with pharmacy to see if we can get paralytic for a longer period of time. Regardless will prone. Continue heavy sedation. BP stable. Continue steroids. Very very guarded prognosis. 01/29/21: will increase tidal volume and/or increase respiratory rate. Repeat ABG this afternoon. Continue paralytic and adequate sedation. Continue steroid and remdesivir, follow up any renal recs. Prognosis remains guarded. Wean Fio2 for sats >88% 01/28/21: Increased PEEP to 16. Will paralyze patient today and increase sedation. Ordering picc line for possible vasopressor therapy needs. Continue BID steroids. Renal function is slightly better today with fluids but could be making oxygenation worse. Not able to diurese. Still making urine. Continue Remdesivir. Watch for fever curve. If not improvement in the next 24 hours with paralyzing, will prone tomorrow morning. 01/27/21: Continue PEEP at 14. No weaning until FiO2 is at or below 40-45%. Continue anticoagulation. Getting Remdesivir now. Continue BID steroids. Renal has increased the fluids. Monitor urine output and renal function. Overall prognosis is very very guarded, especially if renal status worsens. 01/26/21: Increase PEEP to 14. Will add Precedex therapy. If patient does not respond to increases in PEEP may need to prone. Will place patient on lovenox and will feed patient. Remdesivir coming. Continue BID steroids. Prognosis is guarded. 01/25/21: Hold on proning today. Continue BID steroids. ABG this AM was adequate. Pending abg tomorrow, may increase PEEP if not able to wean FiO2 any further. Per charting Remdesivir to arrive tomorrow. Guarded prognosis. 01/24/21: Continue BID steroids. No abg done this am but able to wean FiO2. Will obtain ABG in the am. Hold on proning for right now. Renal following, would like to diurese but they are given fluids for deisi. Agree with ID assessment and note. Guarded prognosis. 1. Increase steroids to BID given size 2. Check with ID to see if he is a candidate for remdesivir or any other experiemental therapy 3. Hold on proning for right now 4. Renal consulted and giving IVF's currently Guarded prognosis. CCT 31 minutes. Subjective Date of service: 02/22/21 Principal diagnosis: DEISI Interval history: Had PVC's and PAC's on yesterday. Got hypotensive as well and had to be restarted on pressors. Mental status is the same. Objective Vital Signs - 12hr 02/21/21 02/21/21 02/21/21 21:45 22:00 22:15 Temperature Pulse Rate 115 H 116 H 115 H Pulse Rate [ From Monitor] Respiratory 38 H 37 H 35 H Rate Blood Pressure 125/67 113/55 120/57 O2 Sat by Pulse 98 95 97 Oximetry O2 Sat by Pulse Oximetry [ Right Throughout] 02/21/21 02/21/21 02/21/21 22:30 22:45 23:00 Temperature Pulse Rate 117 H 115 H 116 H Pulse Rate [ From Monitor] Respiratory 37 H 34 H 35 H Rate Blood Pressure 113/59 120/57 109/60 O2 Sat by Pulse 96 91 95 Oximetry O2 Sat by Pulse Oximetry [ Right Throughout] 02/21/21 02/21/21 02/21/21 23:15 23:16 23:30 Temperature 99.2 F Pulse Rate 118 H 117 H 118 H Pulse Rate [ From Monitor] Respiratory 41 H 36 H 38 H Rate Blood Pressure 118/63 114/65 120/68 O2 Sat by Pulse 96 96 Oximetry O2 Sat by Pulse 96 Oximetry [ Right Throughout] 02/21/21 02/22/21 02/22/21 23:45 00:00 00:15 Temperature 99.9 F H Pulse Rate 117 H 117 H 116 H Pulse Rate [ 116 H From Monitor] Respiratory 37 H 42 H 38 H Rate Blood Pressure 110/64 119/63 108/60 O2 Sat by Pulse 97 96 96 Oximetry O2 Sat by Pulse Oximetry [ Right Throughout] 02/22/21 02/22/21 02/22/21 00:30 00:45 01:00 Temperature Pulse Rate 115 H 116 H 116 H Pulse Rate [ From Monitor] Respiratory 38 H 38 H 40 H Rate Blood Pressure 117/55 112/63 119/60 O2 Sat by Pulse 97 97 97 Oximetry O2 Sat by Pulse Oximetry [ Right Throughout] 02/22/21 02/22/21 02/22/21 01:13 01:15 01:30 Temperature Pulse Rate 115 H 115 H 114 H Pulse Rate [ From Monitor] Respiratory 38 H 35 H Rate Blood Pressure 115/59 115/59 115/59 O2 Sat by Pulse 97 97 95 Oximetry O2 Sat by Pulse Oximetry [ Right Throughout] 02/22/21 02/22/21 02/22/21 01:45 02:00 02:15 Temperature Pulse Rate 113 H 113 H 113 H Pulse Rate [ From Monitor] Respiratory 36 H 38 H 37 H Rate Blood Pressure 113/52 113/55 108/54 O2 Sat by Pulse 94 94 93 Oximetry O2 Sat by Pulse Oximetry [ Right Throughout] 02/22/21 02/22/21 02/22/21 02:30 02:45 03:00 Temperature Pulse Rate 113 H 113 H 113 H Pulse Rate [ From Monitor] Respiratory 40 H 39 H 38 H Rate Blood Pressure 118/55 113/54 109/56 O2 Sat by Pulse 94 94 94 Oximetry O2 Sat by Pulse Oximetry [ Right Throughout] 02/22/21 02/22/21 02/22/21 03:15 03:30 03:45 Temperature Pulse Rate 113 H 113 H 112 H Pulse Rate [ From Monitor] Respiratory 41 H 39 H 38 H Rate Blood Pressure 118/64 118/61 104/62 O2 Sat by Pulse 96 95 95 Oximetry O2 Sat by Pulse Oximetry [ Right Throughout] 02/22/21 02/22/21 02/22/21 03:50 04:00 04:15 Temperature 98.4 F Pulse Rate 112 H 112 H Pulse Rate [ 112 H From Monitor] Respiratory 36 H 39 H Rate Blood Pressure 114/64 114/64 O2 Sat by Pulse 96 98 Oximetry O2 Sat by Pulse Oximetry [ Right Throughout] 02/22/21 02/22/21 02/22/21 04:30 04:45 05:00 Temperature Pulse Rate 112 H 111 H 110 H Pulse Rate [ From Monitor] Respiratory 33 H 28 H 10 L Rate Blood Pressure 124/76 107/62 110/62 O2 Sat by Pulse 100 96 96 Oximetry O2 Sat by Pulse Oximetry [ Right Throughout] 02/22/21 02/22/21 02/22/21 05:15 05:30 05:31 Temperature Pulse Rate 110 H 111 H 110 H Pulse Rate [ From Monitor] Respiratory 9 L 39 H Rate Blood Pressure 110/61 118/70 O2 Sat by Pulse 95 96 96 Oximetry O2 Sat by Pulse Oximetry [ Right Throughout] 02/22/21 02/22/21 02/22/21 05:45 06:00 06:15 Temperature Pulse Rate 110 H 110 H 110 H Pulse Rate [ From Monitor] Respiratory 38 H 37 H 39 H Rate Blood Pressure 115/73 118/71 115/71 O2 Sat by Pulse 96 96 95 Oximetry O2 Sat by Pulse Oximetry [ Right Throughout] 02/22/21 02/22/21 02/22/21 06:30 06:45 07:00 Temperature Pulse Rate 110 H 110 H 110 H Pulse Rate [ From Monitor] Respiratory 37 H 39 H 39 H Rate Blood Pressure 121/68 113/69 117/72 O2 Sat by Pulse 95 95 96 Oximetry O2 Sat by Pulse Oximetry [ Right Throughout] 02/22/21 08:00 Temperature 100.0 F H Pulse Rate Pulse Rate [ From Monitor] Respiratory Rate Blood Pressure O2 Sat by Pulse Oximetry O2 Sat by Pulse Oximetry [ Right Throughout] Constitutional: comatose Eyes: non-icteric ENT: other (orally intubated and sedated) Neck: supple Effort: mildly labored Ascultation: Bilateral: clear Percussion: Bilateral: not dull Cardiovascular: regular rate and rhythm (no mrg) Gastrointestinal: normoactive bowel sounds, soft, non-tender, non-distended Integumentary: normal Extremities: no cyanosis, no edema, pink and warm Neurologic: unable to assess CBC and BMP: 02/18/21 05:02 02/21/21 16:35 ABG, PT/INR, D-dimer: ABG ABG pH 7.250 (7.320-7.450) L 02/22/21 04:22 POC ABG pCO2 60.1 mmHg (32.0-48.0) H 02/22/21 04:22 ABG pCO2 51.2 mm Hg 02/12/21 04:41 POC ABG pO2 57.6 mmHg (83-108) L 02/22/21 04:22 ABG pO2 69.0 mm Hg (80.0-90.0) L 02/12/21 04:41 POC ABG HCO3 25.8 02/22/21 04:22 ABG O2 Saturation 88.2 (0-100) 02/22/21 04:22 PT/INR, D-dimer PT 14.9 Sec. (12.2-14.9) 02/11/21 08:27 INR 1.17 (0.87-1.13) H 02/11/21 08:27 D-Dimer 4840.82 ng/mlDDU (0-234) H 02/19/21 05:45 Abnormal lab findings: Abnormal Labs 01/22/21 01/22/21 01/22/21 22:39 22:57 22:57 WBC RBC Hgb Hct MCV MCH MCHC RDW Plt Count Lymph % (Auto) 6.6 L Lymph # (Auto) 0.5 L Seg Neutrophils % 87.6 H Seg Neuts % (Manual) Lymphocytes % (Manual) Nucleated RBC % Seg Neutrophils # Seg Neutrophils # Man Lymphocytes # (Manual) Eosinophils # (Manual) INR D-Dimer ABG pH POC ABG pCO2 POC ABG pO2 ABG pO2 ABG HCO3 ABG O2 Saturation ABG Base Excess ABG Hemoglobin ABG Oxyhemoglobin ABG Sodium ABG Potassium ABG Chloride ABG Glucose Oxyhemoglobin Carboxyhemoglobin Sodium 129 L Potassium 3.4 L Chloride 90.4 L Carbon Dioxide BUN 34 H Creatinine 1.5 H Glucose 146 H POC Glucose Hemoglobin A1c Lactic Acid Calcium 7.8 L Phosphorus Magnesium Ferritin Total Bilirubin AST 75 H ALT 57 H Lactate Dehydrogenase C-Reactive Protein Albumin 2.9 L Triglycerides Arterial Blood Glucose Arterial Blood Ionized Calcium Urine Creatinine 301.2 H Coronavirus (PCR) Crossmatch 01/22/21 01/22/21 01/22/21 22:57 22:57 22:57 WBC RBC Hgb Hct MCV MCH MCHC RDW Plt Count Lymph % (Auto) Lymph # (Auto) Seg Neutrophils % Seg Neuts % (Manual) Lymphocytes % (Manual) Nucleated RBC % Seg Neutrophils # Seg Neutrophils # Man Lymphocytes # (Manual) Eosinophils # (Manual) INR D-Dimer 1173.89 H ABG pH POC ABG pCO2 POC ABG pO2 ABG pO2 ABG HCO3 ABG O2 Saturation ABG Base Excess ABG Hemoglobin ABG Oxyhemoglobin ABG Sodium ABG Potassium ABG Chloride ABG Glucose Oxyhemoglobin Carboxyhemoglobin Sodium Potassium Chloride Carbon Dioxide BUN Creatinine Glucose 149 H POC Glucose Hemoglobin A1c Lactic Acid 2.10 H* Calcium Phosphorus Magnesium Ferritin Total Bilirubin AST ALT Lactate Dehydrogenase 685 H C-Reactive Protein 30.40 H Albumin Triglycerides Arterial Blood Glucose Arterial Blood Ionized Calcium Urine Creatinine Coronavirus (PCR) Crossmatch 01/22/21 01/23/21 01/23/21 22:57 08:41 10:01 WBC RBC Hgb Hct MCV MCH MCHC RDW Plt Count Lymph % (Auto) Lymph # (Auto) Seg Neutrophils % Seg Neuts % (Manual) Lymphocytes % (Manual) Nucleated RBC % Seg Neutrophils # Seg Neutrophils # Man Lymphocytes # (Manual) Eosinophils # (Manual) INR D-Dimer ABG pH POC ABG pCO2 POC ABG pO2 ABG pO2 ABG HCO3 ABG O2 Saturation ABG Base Excess ABG Hemoglobin ABG Oxyhemoglobin ABG Sodium ABG Potassium ABG Chloride ABG Glucose Oxyhemoglobin Carboxyhemoglobin Sodium 131 L Potassium Chloride 88.7 L Carbon Dioxide 18 L BUN 36 H Creatinine 1.6 H Glucose 147 H POC Glucose Hemoglobin A1c Lactic Acid Calcium 7.5 L Phosphorus Magnesium Ferritin 1207.0 H Total Bilirubin AST ALT Lactate Dehydrogenase C-Reactive Protein Albumin Triglycerides Arterial Blood Glucose Arterial Blood Ionized Calcium Urine Creatinine Coronavirus (PCR) Positive A Crossmatch 01/23/21 01/23/21 01/24/21 20:49 Unknown 00:10 WBC RBC Hgb Hct MCV MCH MCHC RDW Plt Count Lymph % (Auto) Lymph # (Auto) Seg Neutrophils % Seg Neuts % (Manual) Lymphocytes % (Manual) Nucleated RBC % Seg Neutrophils # Seg Neutrophils # Man Lymphocytes # (Manual) Eosinophils # (Manual) INR D-Dimer ABG pH POC ABG pCO2 POC ABG pO2 ABG pO2 165.4 H ABG HCO3 ABG O2 Saturation ABG Base Excess -2.5 L ABG Hemoglobin ABG Oxyhemoglobin ABG Sodium ABG Potassium ABG Chloride ABG Glucose Oxyhemoglobin Carboxyhemoglobin Sodium 130 L Potassium Chloride 91.0 L Carbon Dioxide 20 L BUN 52 H Creatinine 3.8 H D Glucose 150 H POC Glucose 125 H Hemoglobin A1c Lactic Acid Calcium 8.0 L Phosphorus Magnesium Ferritin Total Bilirubin AST 42 H ALT Lactate Dehydrogenase C-Reactive Protein Albumin 2.4 L Triglycerides Arterial Blood Glucose Arterial Blood Ionized Calcium Urine Creatinine Coronavirus (PCR) Crossmatch 01/24/21 01/24/21 01/24/21 05:05 05:05 05:05 WBC 14.0 H RBC Hgb Hct MCV 95 H MCH 33 H MCHC RDW Plt Count Lymph % (Auto) Lymph # (Auto) Seg Neutrophils % Seg Neuts % (Manual) 91.0 H Lymphocytes % (Manual) 4.0 L Nucleated RBC % Seg Neutrophils # Seg Neutrophils # Man 12.7 H Lymphocytes # (Manual) 0.6 L Eosinophils # (Manual) INR D-Dimer 6159.48 H ABG pH POC ABG pCO2 POC ABG pO2 ABG pO2 ABG HCO3 ABG O2 Saturation ABG Base Excess ABG Hemoglobin ABG Oxyhemoglobin ABG Sodium ABG Potassium ABG Chloride ABG Glucose Oxyhemoglobin Carboxyhemoglobin Sodium Potassium Chloride Carbon Dioxide BUN Creatinine Glucose POC Glucose Hemoglobin A1c Lactic Acid Calcium Phosphorus Magnesium Ferritin 1178.0 H Total Bilirubin AST ALT Lactate Dehydrogenase C-Reactive Protein Albumin Triglycerides Arterial Blood Glucose Arterial Blood Ionized Calcium Urine Creatinine Coronavirus (PCR) Crossmatch 01/24/21 01/24/21 01/24/21 05:05 05:05 05:05 WBC RBC Hgb Hct MCV MCH MCHC RDW Plt Count Lymph % (Auto) Lymph # (Auto) Seg Neutrophils % Seg Neuts % (Manual) Lymphocytes % (Manual) Nucleated RBC % Seg Neutrophils # Seg Neutrophils # Man Lymphocytes # (Manual) Eosinophils # (Manual) INR D-Dimer ABG pH POC ABG pCO2 POC ABG pO2 ABG pO2 ABG HCO3 ABG O2 Saturation ABG Base Excess ABG Hemoglobin ABG Oxyhemoglobin ABG Sodium ABG Potassium ABG Chloride ABG Glucose Oxyhemoglobin Carboxyhemoglobin Sodium 132 L Potassium Chloride 93.1 L Carbon Dioxide 21 L BUN 57 H Creatinine 3.7 H Glucose 133 H POC Glucose Hemoglobin A1c Lactic Acid 2.20 H* Calcium 7.7 L Phosphorus Magnesium Ferritin Total Bilirubin AST ALT Lactate Dehydrogenase 658 H C-Reactive Protein 33.20 H Albumin 2.4 L Triglycerides Arterial Blood Glucose Arterial Blood Ionized Calcium Urine Creatinine Coronavirus (PCR) Crossmatch 01/24/21 01/24/21 01/24/21 05:34 06:00 17:35 WBC RBC Hgb Hct MCV MCH MCHC RDW Plt Count Lymph % (Auto) Lymph # (Auto) Seg Neutrophils % Seg Neuts % (Manual) Lymphocytes % (Manual) Nucleated RBC % Seg Neutrophils # Seg Neutrophils # Man Lymphocytes # (Manual) Eosinophils # (Manual) INR D-Dimer ABG pH POC ABG pCO2 POC ABG pO2 ABG pO2 ABG HCO3 ABG O2 Saturation ABG Base Excess ABG Hemoglobin ABG Oxyhemoglobin ABG Sodium ABG Potassium ABG Chloride ABG Glucose Oxyhemoglobin Carboxyhemoglobin Sodium Potassium Chloride Carbon Dioxide BUN Creatinine Glucose POC Glucose 136 H 137 H Hemoglobin A1c Lactic Acid Calcium Phosphorus Magnesium 2.80 H Ferritin Total Bilirubin AST ALT Lactate Dehydrogenase C-Reactive Protein Albumin Triglycerides Arterial Blood Glucose Arterial Blood Ionized Calcium Urine Creatinine Coronavirus (PCR) Crossmatch 01/25/21 01/25/21 01/25/21 04:15 05:40 05:40 WBC RBC Hgb Hct MCV 95 H MCH 33 H MCHC 35 H RDW Plt Count Lymph % (Auto) Lymph # (Auto) Seg Neutrophils % Seg Neuts % (Manual) 95.0 H Lymphocytes % (Manual) 3.0 L Nucleated RBC % Seg Neutrophils # Seg Neutrophils # Man 7.8 H Lymphocytes # (Manual) 0.2 L Eosinophils # (Manual) INR D-Dimer ABG pH POC ABG pCO2 POC ABG pO2 63.2 L ABG pO2 ABG HCO3 ABG O2 Saturation ABG Base Excess ABG Hemoglobin ABG Oxyhemoglobin 89.6 L ABG Sodium ABG Potassium ABG Chloride ABG Glucose 165 H Oxyhemoglobin Carboxyhemoglobin 0.3 L Sodium Potassium Chloride Carbon Dioxide BUN 67 H Creatinine 3.4 H Glucose 153 H POC Glucose Hemoglobin A1c Lactic Acid Calcium 7.5 L Phosphorus Magnesium Ferritin Total Bilirubin 1.40 H AST 62 H ALT Lactate Dehydrogenase C-Reactive Protein Albumin 2.6 L Triglycerides Arterial Blood Glucose 165 H Arterial Blood Ionized Calcium 4.3 L Urine Creatinine Coronavirus (PCR) Crossmatch 01/25/21 01/25/21 01/25/21 05:59 12:00 17:17 WBC RBC Hgb Hct MCV MCH MCHC RDW Plt Count Lymph % (Auto) Lymph # (Auto) Seg Neutrophils % Seg Neuts % (Manual) Lymphocytes % (Manual) Nucleated RBC % Seg Neutrophils # Seg Neutrophils # Man Lymphocytes # (Manual) Eosinophils # (Manual) INR D-Dimer ABG pH POC ABG pCO2 POC ABG pO2 ABG pO2 ABG HCO3 ABG O2 Saturation ABG Base Excess ABG Hemoglobin ABG Oxyhemoglobin ABG Sodium ABG Potassium ABG Chloride ABG Glucose Oxyhemoglobin Carboxyhemoglobin Sodium Potassium Chloride Carbon Dioxide BUN Creatinine Glucose POC Glucose 140 H 143 H 149 H Hemoglobin A1c Lactic Acid Calcium Phosphorus Magnesium Ferritin Total Bilirubin AST ALT Lactate Dehydrogenase C-Reactive Protein Albumin Triglycerides Arterial Blood Glucose Arterial Blood Ionized Calcium Urine Creatinine Coronavirus (PCR) Crossmatch 01/25/21 01/26/21 01/26/21 23:41 03:43 05:46 WBC RBC Hgb Hct MCV MCH MCHC RDW Plt Count Lymph % (Auto) Lymph # (Auto) Seg Neutrophils % Seg Neuts % (Manual) Lymphocytes % (Manual) Nucleated RBC % Seg Neutrophils # Seg Neutrophils # Man Lymphocytes # (Manual) Eosinophils # (Manual) INR D-Dimer ABG pH POC ABG pCO2 POC ABG pO2 70.0 L ABG pO2 ABG HCO3 ABG O2 Saturation ABG Base Excess ABG Hemoglobin ABG Oxyhemoglobin 91.9 L ABG Sodium ABG Potassium ABG Chloride 109.0 H ABG Glucose 165 H Oxyhemoglobin Carboxyhemoglobin Sodium Potassium Chloride Carbon Dioxide BUN Creatinine Glucose POC Glucose 132 H 161 H Hemoglobin A1c Lactic Acid Calcium Phosphorus Magnesium Ferritin Total Bilirubin AST ALT Lactate Dehydrogenase C-Reactive Protein Albumin Triglycerides Arterial Blood Glucose 165 H Arterial Blood Ionized Calcium 4.5 L Urine Creatinine Coronavirus (PCR) Crossmatch 01/26/21 01/26/21 01/26/21 05:47 05:47 05:47 WBC RBC Hgb Hct 35.3 L MCV 96 H MCH 33 H MCHC RDW Plt Count Lymph % (Auto) Lymph # (Auto) Seg Neutrophils % Seg Neuts % (Manual) 96.0 H Lymphocytes % (Manual) 2.0 L Nucleated RBC % Seg Neutrophils # Seg Neutrophils # Man Lymphocytes # (Manual) 0.1 L Eosinophils # (Manual) INR D-Dimer > 84237 H ABG pH POC ABG pCO2 POC ABG pO2 ABG pO2 ABG HCO3 ABG O2 Saturation ABG Base Excess ABG Hemoglobin ABG Oxyhemoglobin ABG Sodium ABG Potassium ABG Chloride ABG Glucose Oxyhemoglobin Carboxyhemoglobin Sodium Potassium Chloride Carbon Dioxide BUN 57 H Creatinine 2.2 H Glucose 185 H POC Glucose Hemoglobin A1c Lactic Acid Calcium 8.1 L Phosphorus Magnesium Ferritin Total Bilirubin AST ALT Lactate Dehydrogenase C-Reactive Protein Albumin Triglycerides Arterial Blood Glucose Arterial Blood Ionized Calcium Urine Creatinine Coronavirus (PCR) Crossmatch 01/26/21 01/26/21 01/26/21 05:47 05:47 05:47 WBC RBC Hgb Hct MCV MCH MCHC RDW Plt Count Lymph % (Auto) Lymph # (Auto) Seg Neutrophils % Seg Neuts % (Manual) Lymphocytes % (Manual) Nucleated RBC % Seg Neutrophils # Seg Neutrophils # Man Lymphocytes # (Manual) Eosinophils # (Manual) INR D-Dimer ABG pH POC ABG pCO2 POC ABG pO2 ABG pO2 ABG HCO3 ABG O2 Saturation ABG Base Excess ABG Hemoglobin ABG Oxyhemoglobin ABG Sodium ABG Potassium ABG Chloride ABG Glucose Oxyhemoglobin Carboxyhemoglobin Sodium Potassium Chloride 107.1 H Carbon Dioxide BUN 56 H Creatinine 2.2 H Glucose 188 H POC Glucose Hemoglobin A1c Lactic Acid Calcium 8.0 L Phosphorus Magnesium Ferritin 1178.0 H Total Bilirubin 1.50 H AST ALT Lactate Dehydrogenase 588 H C-Reactive Protein 40.10 H Albumin 2.2 L Triglycerides Arterial Blood Glucose Arterial Blood Ionized Calcium Urine Creatinine Coronavirus (PCR) Crossmatch 01/26/21 01/26/21 01/26/21 11:34 18:17 23:20 WBC RBC Hgb Hct MCV MCH MCHC RDW Plt Count Lymph % (Auto) Lymph # (Auto) Seg Neutrophils % Seg Neuts % (Manual) Lymphocytes % (Manual) Nucleated RBC % Seg Neutrophils # Seg Neutrophils # Man Lymphocytes # (Manual) Eosinophils # (Manual) INR D-Dimer ABG pH POC ABG pCO2 POC ABG pO2 ABG pO2 ABG HCO3 ABG O2 Saturation ABG Base Excess ABG Hemoglobin ABG Oxyhemoglobin ABG Sodium ABG Potassium ABG Chloride ABG Glucose Oxyhemoglobin Carboxyhemoglobin Sodium Potassium Chloride Carbon Dioxide BUN Creatinine Glucose POC Glucose 129 H 205 H 155 H Hemoglobin A1c Lactic Acid Calcium Phosphorus Magnesium Ferritin Total Bilirubin AST ALT Lactate Dehydrogenase C-Reactive Protein Albumin Triglycerides Arterial Blood Glucose Arterial Blood Ionized Calcium Urine Creatinine Coronavirus (PCR) Crossmatch 01/27/21 01/27/21 01/27/21 02:45 05:29 05:29 WBC RBC 3.58 L Hgb 11.7 L Hct 34.9 L MCV 97 H MCH 33 H MCHC RDW Plt Count Lymph % (Auto) Lymph # (Auto) Seg Neutrophils % Seg Neuts % (Manual) 88.0 H Lymphocytes % (Manual) 7.0 L Nucleated RBC % Seg Neutrophils # Seg Neutrophils # Man Lymphocytes # (Manual) 0.5 L Eosinophils # (Manual) INR D-Dimer ABG pH 7.319 L POC ABG pCO2 50.7 H POC ABG pO2 63.0 L ABG pO2 ABG HCO3 ABG O2 Saturation ABG Base Excess ABG Hemoglobin ABG Oxyhemoglobin ABG Sodium 145.2 H ABG Potassium 5.1 H ABG Chloride 114.0 H ABG Glucose 178 H Oxyhemoglobin Carboxyhemoglobin Sodium Potassium Chloride Carbon Dioxide BUN Creatinine Glucose POC Glucose Hemoglobin A1c Lactic Acid Calcium Phosphorus Magnesium 4.00 H Ferritin Total Bilirubin AST ALT Lactate Dehydrogenase C-Reactive Protein Albumin Triglycerides Arterial Blood Glucose 178 H Arterial Blood Ionized Calcium Urine Creatinine Coronavirus (PCR) Crossmatch 01/27/21 01/27/21 01/27/21 05:29 05:29 05:31 WBC RBC Hgb Hct MCV MCH MCHC RDW Plt Count Lymph % (Auto) Lymph # (Auto) Seg Neutrophils % Seg Neuts % (Manual) Lymphocytes % (Manual) Nucleated RBC % Seg Neutrophils # Seg Neutrophils # Man Lymphocytes # (Manual) Eosinophils # (Manual) INR D-Dimer ABG pH POC ABG pCO2 POC ABG pO2 ABG pO2 ABG HCO3 ABG O2 Saturation ABG Base Excess ABG Hemoglobin ABG Oxyhemoglobin ABG Sodium ABG Potassium ABG Chloride ABG Glucose Oxyhemoglobin Carboxyhemoglobin Sodium Potassium 5.2 H Chloride 109.6 H Carbon Dioxide BUN 67 H Creatinine 2.8 H Glucose 195 H POC Glucose 176 H Hemoglobin A1c Lactic Acid Calcium 7.9 L Phosphorus Magnesium Ferritin Total Bilirubin AST ALT Lactate Dehydrogenase C-Reactive Protein Albumin Triglycerides 160 H Arterial Blood Glucose Arterial Blood Ionized Calcium Urine Creatinine Coronavirus (PCR) Crossmatch 01/27/21 01/27/21 01/27/21 11:27 18:08 23:30 WBC RBC Hgb Hct MCV MCH MCHC RDW Plt Count Lymph % (Auto) Lymph # (Auto) Seg Neutrophils % Seg Neuts % (Manual) Lymphocytes % (Manual) Nucleated RBC % Seg Neutrophils # Seg Neutrophils # Man Lymphocytes # (Manual) Eosinophils # (Manual) INR D-Dimer ABG pH POC ABG pCO2 POC ABG pO2 ABG pO2 ABG HCO3 ABG O2 Saturation ABG Base Excess ABG Hemoglobin ABG Oxyhemoglobin ABG Sodium ABG Potassium ABG Chloride ABG Glucose Oxyhemoglobin Carboxyhemoglobin Sodium Potassium Chloride Carbon Dioxide BUN Creatinine Glucose POC Glucose 189 H 212 H 175 H Hemoglobin A1c Lactic Acid Calcium Phosphorus Magnesium Ferritin Total Bilirubin AST ALT Lactate Dehydrogenase C-Reactive Protein Albumin Triglycerides Arterial Blood Glucose Arterial Blood Ionized Calcium Urine Creatinine Coronavirus (PCR) Crossmatch 03/01/28/21 01/28/21 03:58 04:00 04:00 WBC RBC Hgb Hct MCV MCH MCHC RDW Plt Count Lymph % (Auto) Lymph # (Auto) Seg Neutrophils % Seg Neuts % (Manual) Lymphocytes % (Manual) Nucleated RBC % Seg Neutrophils # Seg Neutrophils # Man Lymphocytes # (Manual) Eosinophils # (Manual) INR D-Dimer > 58908 H ABG pH POC ABG pCO2 POC ABG pO2 52.9 L ABG pO2 ABG HCO3 ABG O2 Saturation ABG Base Excess ABG Hemoglobin ABG Oxyhemoglobin 84.1 L ABG Sodium 148.9 H ABG Potassium ABG Chloride 117.0 H ABG Glucose 194 H Oxyhemoglobin Carboxyhemoglobin Sodium Potassium Chloride Carbon Dioxide BUN Creatinine Glucose POC Glucose Hemoglobin A1c Lactic Acid Calcium Phosphorus Magnesium Ferritin Total Bilirubin AST ALT Lactate Dehydrogenase 679 H C-Reactive Protein 17.10 H Albumin Triglycerides Arterial Blood Glucose 194 H Arterial Blood Ionized Calcium Urine Creatinine Coronavirus (PCR) Crossmatch 01/28/21 01/28/21 01/28/21 04:00 05:00 06:00 WBC RBC 3.59 L Hgb 11.6 L Hct 34.8 L MCV 97 H MCH MCHC RDW Plt Count Lymph % (Auto) Lymph # (Auto) Seg Neutrophils % Seg Neuts % (Manual) 96.0 H Lymphocytes % (Manual) 3.0 L Nucleated RBC % Seg Neutrophils # Seg Neutrophils # Man Lymphocytes # (Manual) 0.2 L Eosinophils # (Manual) INR D-Dimer ABG pH POC ABG pCO2 POC ABG pO2 ABG pO2 ABG HCO3 ABG O2 Saturation ABG Base Excess ABG Hemoglobin ABG Oxyhemoglobin ABG Sodium ABG Potassium ABG Chloride ABG Glucose Oxyhemoglobin Carboxyhemoglobin Sodium Potassium Chloride Carbon Dioxide BUN Creatinine Glucose POC Glucose 159 H Hemoglobin A1c Lactic Acid Calcium Phosphorus Magnesium Ferritin 798.0 H Total Bilirubin AST ALT Lactate Dehydrogenase C-Reactive Protein Albumin Triglycerides Arterial Blood Glucose Arterial Blood Ionized Calcium Urine Creatinine Coronavirus (PCR) Crossmatch 01/28/21 01/28/21 01/28/21 06:00 06:00 08:12 WBC RBC Hgb Hct MCV MCH MCHC RDW Plt Count Lymph % (Auto) Lymph # (Auto) Seg Neutrophils % Seg Neuts % (Manual) Lymphocytes % (Manual) Nucleated RBC % Seg Neutrophils # Seg Neutrophils # Man Lymphocytes # (Manual) Eosinophils # (Manual) INR D-Dimer ABG pH POC ABG pCO2 POC ABG pO2 ABG pO2 ABG HCO3 ABG O2 Saturation ABG Base Excess ABG Hemoglobin ABG Oxyhemoglobin ABG Sodium ABG Potassium ABG Chloride ABG Glucose Oxyhemoglobin Carboxyhemoglobin Sodium Potassium Chloride 111.9 H Carbon Dioxide BUN 59 H Creatinine 2.2 H Glucose 189 H POC Glucose 181 H Hemoglobin A1c Lactic Acid Calcium 8.1 L Phosphorus Magnesium 3.20 H Ferritin Total Bilirubin AST ALT Lactate Dehydrogenase C-Reactive Protein Albumin Triglycerides Arterial Blood Glucose Arterial Blood Ionized Calcium Urine Creatinine Coronavirus (PCR) Crossmatch 01/28/21 01/28/21 01/28/21 12:03 16:43 23:51 WBC RBC Hgb Hct MCV MCH MCHC RDW Plt Count Lymph % (Auto) Lymph # (Auto) Seg Neutrophils % Seg Neuts % (Manual) Lymphocytes % (Manual) Nucleated RBC % Seg Neutrophils # Seg Neutrophils # Man Lymphocytes # (Manual) Eosinophils # (Manual) INR D-Dimer ABG pH POC ABG pCO2 POC ABG pO2 ABG pO2 ABG HCO3 ABG O2 Saturation ABG Base Excess ABG Hemoglobin ABG Oxyhemoglobin ABG Sodium ABG Potassium ABG Chloride ABG Glucose Oxyhemoglobin Carboxyhemoglobin Sodium Potassium Chloride Carbon Dioxide BUN Creatinine Glucose POC Glucose 164 H 198 H 196 H Hemoglobin A1c Lactic Acid Calcium Phosphorus Magnesium Ferritin Total Bilirubin AST ALT Lactate Dehydrogenase C-Reactive Protein Albumin Triglycerides Arterial Blood Glucose Arterial Blood Ionized Calcium Urine Creatinine Coronavirus (PCR) Crossmatch 01/29/21 01/29/21 01/29/21 05:00 05:23 06:00 WBC RBC Hgb Hct MCV MCH MCHC RDW Plt Count Lymph % (Auto) Lymph # (Auto) Seg Neutrophils % Seg Neuts % (Manual) Lymphocytes % (Manual) Nucleated RBC % Seg Neutrophils # Seg Neutrophils # Man Lymphocytes # (Manual) Eosinophils # (Manual) INR D-Dimer ABG pH 7.119 L POC ABG pCO2 87.1 H POC ABG pO2 ABG pO2 ABG HCO3 ABG O2 Saturation ABG Base Excess ABG Hemoglobin ABG Oxyhemoglobin ABG Sodium 152.5 H ABG Potassium 5.7 H ABG Chloride 120.0 H ABG Glucose 217 H Oxyhemoglobin Carboxyhemoglobin Sodium 151 H Potassium 5.9 H D Chloride 117.8 H Carbon Dioxide BUN 54 H Creatinine 2.2 H Glucose 208 H POC Glucose 180 H Hemoglobin A1c Lactic Acid Calcium 7.9 L Phosphorus Magnesium Ferritin Total Bilirubin AST ALT Lactate Dehydrogenase C-Reactive Protein Albumin Triglycerides Arterial Blood Glucose 217 H Arterial Blood Ionized Calcium Urine Creatinine Coronavirus (PCR) Crossmatch 01/29/21 01/29/21 01/29/21 12:29 17:28 18:05 WBC RBC Hgb Hct MCV MCH MCHC RDW Plt Count Lymph % (Auto) Lymph # (Auto) Seg Neutrophils % Seg Neuts % (Manual) Lymphocytes % (Manual) Nucleated RBC % Seg Neutrophils # Seg Neutrophils # Man Lymphocytes # (Manual) Eosinophils # (Manual) INR D-Dimer ABG pH POC ABG pCO2 POC ABG pO2 ABG pO2 ABG HCO3 ABG O2 Saturation ABG Base Excess ABG Hemoglobin ABG Oxyhemoglobin ABG Sodium ABG Potassium ABG Chloride ABG Glucose Oxyhemoglobin Carboxyhemoglobin Sodium 151 H Potassium 5.5 H Chloride 118.2 H Carbon Dioxide BUN 52 H Creatinine 2.2 H Glucose 224 H POC Glucose 181 H 203 H Hemoglobin A1c Lactic Acid Calcium 8.0 L Phosphorus Magnesium Ferritin Total Bilirubin AST ALT Lactate Dehydrogenase C-Reactive Protein Albumin Triglycerides Arterial Blood Glucose Arterial Blood Ionized Calcium Urine Creatinine Coronavirus (PCR) Crossmatch 01/29/21 01/29/21 01/29/21 18:13 23:34 Unknown WBC RBC Hgb Hct MCV 101 H MCH MCHC RDW 15.7 H Plt Count Lymph % (Auto) Lymph # (Auto) Seg Neutrophils % Seg Neuts % (Manual) 95.0 H Lymphocytes % (Manual) 3.0 L Nucleated RBC % Seg Neutrophils # Seg Neutrophils # Man 8.0 H Lymphocytes # (Manual) 0.3 L Eosinophils # (Manual) INR D-Dimer ABG pH 7.223 L POC ABG pCO2 64.8 H POC ABG pO2 63.6 L ABG pO2 ABG HCO3 ABG O2 Saturation ABG Base Excess ABG Hemoglobin ABG Oxyhemoglobin 89.4 L ABG Sodium 152.9 H ABG Potassium 5.3 H ABG Chloride 121.0 H ABG Glucose 227 H Oxyhemoglobin Carboxyhemoglobin Sodium Potassium Chloride Carbon Dioxide BUN Creatinine Glucose POC Glucose 198 H Hemoglobin A1c Lactic Acid Calcium Phosphorus Magnesium Ferritin Total Bilirubin AST ALT Lactate Dehydrogenase C-Reactive Protein Albumin Triglycerides Arterial Blood Glucose 227 H Arterial Blood Ionized Calcium Urine Creatinine Coronavirus (PCR) Crossmatch 01/30/21 01/30/21 01/30/21 04:00 04:00 04:00 WBC RBC Hgb Hct MCV MCH MCHC RDW Plt Count Lymph % (Auto) Lymph # (Auto) Seg Neutrophils % Seg Neuts % (Manual) Lymphocytes % (Manual) Nucleated RBC % Seg Neutrophils # Seg Neutrophils # Man Lymphocytes # (Manual) Eosinophils # (Manual) INR D-Dimer > 97240 H ABG pH POC ABG pCO2 POC ABG pO2 ABG pO2 ABG HCO3 ABG O2 Saturation ABG Base Excess ABG Hemoglobin ABG Oxyhemoglobin ABG Sodium ABG Potassium ABG Chloride ABG Glucose Oxyhemoglobin Carboxyhemoglobin Sodium Potassium Chloride Carbon Dioxide BUN Creatinine Glucose 234 H POC Glucose Hemoglobin A1c Lactic Acid Calcium Phosphorus Magnesium Ferritin 763.9 H Total Bilirubin AST ALT Lactate Dehydrogenase 424 H C-Reactive Protein 23.90 H Albumin Triglycerides Arterial Blood Glucose Arterial Blood Ionized Calcium Urine Creatinine Coronavirus (PCR) Crossmatch 01/30/21 01/30/21 01/30/21 04:24 05:00 05:16 WBC RBC 3.57 L Hgb 11.3 L Hct 35.4 L MCV 99 H MCH MCHC RDW 15.6 H Plt Count Lymph % (Auto) Lymph # (Auto) Seg Neutrophils % Seg Neuts % (Manual) 97.0 H Lymphocytes % (Manual) 1.0 L Nucleated RBC % Seg Neutrophils # Seg Neutrophils # Man 8.6 H Lymphocytes # (Manual) 0.1 L Eosinophils # (Manual) INR D-Dimer ABG pH 7.235 L POC ABG pCO2 69.7 H POC ABG pO2 61.0 L ABG pO2 ABG HCO3 ABG O2 Saturation ABG Base Excess ABG Hemoglobin ABG Oxyhemoglobin 89 L ABG Sodium 154.2 H ABG Potassium 5.4 H ABG Chloride 121.0 H ABG Glucose 247 H Oxyhemoglobin Carboxyhemoglobin Sodium Potassium Chloride Carbon Dioxide BUN Creatinine Glucose POC Glucose 238 H Hemoglobin A1c Lactic Acid Calcium Phosphorus Magnesium Ferritin Total Bilirubin AST ALT Lactate Dehydrogenase C-Reactive Protein Albumin Triglycerides Arterial Blood Glucose 247 H Arterial Blood Ionized Calcium Urine Creatinine Coronavirus (PCR) Crossmatch 01/30/21 01/30/21 01/30/21 06:00 11:28 12:00 WBC RBC Hgb Hct MCV MCH MCHC RDW Plt Count Lymph % (Auto) Lymph # (Auto) Seg Neutrophils % Seg Neuts % (Manual) Lymphocytes % (Manual) Nucleated RBC % Seg Neutrophils # Seg Neutrophils # Man Lymphocytes # (Manual) Eosinophils # (Manual) INR D-Dimer ABG pH POC ABG pCO2 POC ABG pO2 ABG pO2 ABG HCO3 ABG O2 Saturation ABG Base Excess ABG Hemoglobin ABG Oxyhemoglobin ABG Sodium ABG Potassium ABG Chloride ABG Glucose Oxyhemoglobin Carboxyhemoglobin Sodium 152 H Potassium 5.3 H Chloride 120.5 H Carbon Dioxide BUN 50 H Creatinine 2.3 H Glucose 239 H POC Glucose 153 H Hemoglobin A1c Lactic Acid Calcium 8.2 L Phosphorus Magnesium 2.60 H Ferritin Total Bilirubin AST ALT Lactate Dehydrogenase C-Reactive Protein Albumin Triglycerides 293 H Arterial Blood Glucose Arterial Blood Ionized Calcium Urine Creatinine 53.0 H Coronavirus (PCR) Crossmatch 01/30/21 01/30/21 01/31/21 18:49 23:06 04:00 WBC RBC Hgb Hct MCV MCH MCHC RDW Plt Count Lymph % (Auto) Lymph # (Auto) Seg Neutrophils % Seg Neuts % (Manual) Lymphocytes % (Manual) Nucleated RBC % Seg Neutrophils # Seg Neutrophils # Man Lymphocytes # (Manual) Eosinophils # (Manual) INR D-Dimer ABG pH POC ABG pCO2 POC ABG pO2 ABG pO2 ABG HCO3 ABG O2 Saturation ABG Base Excess ABG Hemoglobin ABG Oxyhemoglobin ABG Sodium ABG Potassium ABG Chloride ABG Glucose Oxyhemoglobin Carboxyhemoglobin Sodium 156 H Potassium 5.9 H Chloride 122.6 H Carbon Dioxide BUN 61 H Creatinine 3.2 H Glucose 205 H POC Glucose 220 H 192 H Hemoglobin A1c Lactic Acid Calcium 8.0 L Phosphorus Magnesium Ferritin Total Bilirubin AST ALT Lactate Dehydrogenase C-Reactive Protein Albumin Triglycerides Arterial Blood Glucose Arterial Blood Ionized Calcium Urine Creatinine Coronavirus (PCR) Crossmatch 01/31/21 01/31/21 01/31/21 04:40 05:17 11:33 WBC RBC Hgb Hct MCV MCH MCHC RDW Plt Count Lymph % (Auto) Lymph # (Auto) Seg Neutrophils % Seg Neuts % (Manual) Lymphocytes % (Manual) Nucleated RBC % Seg Neutrophils # Seg Neutrophils # Man Lymphocytes # (Manual) Eosinophils # (Manual) INR D-Dimer ABG pH 7.161 L* POC ABG pCO2 POC ABG pO2 ABG pO2 142.2 H ABG HCO3 28.3 H ABG O2 Saturation ABG Base Excess -3.2 L ABG Hemoglobin ABG Oxyhemoglobin ABG Sodium ABG Potassium ABG Chloride ABG Glucose Oxyhemoglobin Carboxyhemoglobin Sodium Potassium Chloride Carbon Dioxide BUN Creatinine Glucose POC Glucose 200 H 167 H Hemoglobin A1c Lactic Acid Calcium Phosphorus Magnesium Ferritin Total Bilirubin AST ALT Lactate Dehydrogenase C-Reactive Protein Albumin Triglycerides Arterial Blood Glucose Arterial Blood Ionized Calcium Urine Creatinine Coronavirus (PCR) Crossmatch 01/31/21 01/31/21 01/31/21 14:00 17:10 23:24 WBC RBC Hgb Hct MCV MCH MCHC RDW Plt Count Lymph % (Auto) Lymph # (Auto) Seg Neutrophils % Seg Neuts % (Manual) Lymphocytes % (Manual) Nucleated RBC % Seg Neutrophils # Seg Neutrophils # Man Lymphocytes # (Manual) Eosinophils # (Manual) INR D-Dimer ABG pH 7.205 L POC ABG pCO2 POC ABG pO2 ABG pO2 90.9 H ABG HCO3 26.5 H ABG O2 Saturation ABG Base Excess -2.7 L ABG Hemoglobin 12.3 L ABG Oxyhemoglobin ABG Sodium ABG Potassium ABG Chloride ABG Glucose Oxyhemoglobin 93.9 L Carboxyhemoglobin Sodium Potassium Chloride Carbon Dioxide BUN Creatinine Glucose POC Glucose 190 H 203 H Hemoglobin A1c Lactic Acid Calcium Phosphorus Magnesium Ferritin Total Bilirubin AST ALT Lactate Dehydrogenase C-Reactive Protein Albumin Triglycerides Arterial Blood Glucose Arterial Blood Ionized Calcium Urine Creatinine Coronavirus (PCR) Crossmatch 02/01/21 02/01/21 02/01/21 05:15 06:22 10:20 WBC RBC Hgb Hct MCV MCH MCHC RDW Plt Count Lymph % (Auto) Lymph # (Auto) Seg Neutrophils % Seg Neuts % (Manual) Lymphocytes % (Manual) Nucleated RBC % Seg Neutrophils # Seg Neutrophils # Man Lymphocytes # (Manual) Eosinophils # (Manual) INR D-Dimer ABG pH 6.920 L* 7.116 L* POC ABG pCO2 POC ABG pO2 ABG pO2 102.9 H 113.1 H ABG HCO3 28.2 H ABG O2 Saturation 92.9 L ABG Base Excess -6.9 L -5.8 L ABG Hemoglobin 11.6 L 9.5 L ABG Oxyhemoglobin ABG Sodium ABG Potassium ABG Chloride ABG Glucose Oxyhemoglobin 90.5 L 94.6 L Carboxyhemoglobin Sodium Potassium Chloride Carbon Dioxide BUN Creatinine Glucose POC Glucose 221 H Hemoglobin A1c Lactic Acid Calcium Phosphorus Magnesium Ferritin Total Bilirubin AST ALT Lactate Dehydrogenase C-Reactive Protein Albumin Triglycerides Arterial Blood Glucose Arterial Blood Ionized Calcium Urine Creatinine Coronavirus (PCR) Crossmatch 02/01/21 02/01/21 02/01/21 11:12 12:35 16:00 WBC RBC Hgb Hct MCV MCH MCHC RDW Plt Count Lymph % (Auto) Lymph # (Auto) Seg Neutrophils % Seg Neuts % (Manual) Lymphocytes % (Manual) Nucleated RBC % Seg Neutrophils # Seg Neutrophils # Man Lymphocytes # (Manual) Eosinophils # (Manual) INR D-Dimer ABG pH 7.155 L* POC ABG pCO2 POC ABG pO2 ABG pO2 94.6 H ABG HCO3 ABG O2 Saturation ABG Base Excess -6.5 L ABG Hemoglobin 13.1 L ABG Oxyhemoglobin ABG Sodium ABG Potassium ABG Chloride ABG Glucose Oxyhemoglobin 93.7 L Carboxyhemoglobin Sodium 155 H Potassium 5.1 H Chloride 120.5 H Carbon Dioxide BUN 90 H Creatinine 6.1 H D Glucose 238 H POC Glucose 207 H Hemoglobin A1c Lactic Acid Calcium 7.4 L Phosphorus Magnesium Ferritin Total Bilirubin AST ALT Lactate Dehydrogenase C-Reactive Protein Albumin Triglycerides Arterial Blood Glucose Arterial Blood Ionized Calcium Urine Creatinine Coronavirus (PCR) Crossmatch 02/01/21 02/01/21 02/02/21 17:10 23:47 04:04 WBC RBC 3.02 L Hgb 9.8 L Hct 30.7 L MCV 102 H MCH MCHC RDW 15.6 H Plt Count Lymph % (Auto) 4.2 L Lymph # (Auto) 0.3 L Seg Neutrophils % Seg Neuts % (Manual) Lymphocytes % (Manual) Nucleated RBC % Seg Neutrophils # Seg Neutrophils # Man Lymphocytes # (Manual) Eosinophils # (Manual) INR D-Dimer ABG pH POC ABG pCO2 POC ABG pO2 ABG pO2 ABG HCO3 ABG O2 Saturation ABG Base Excess ABG Hemoglobin ABG Oxyhemoglobin ABG Sodium ABG Potassium ABG Chloride ABG Glucose Oxyhemoglobin Carboxyhemoglobin Sodium Potassium Chloride Carbon Dioxide BUN Creatinine Glucose POC Glucose 238 H 235 H Hemoglobin A1c Lactic Acid Calcium Phosphorus Magnesium Ferritin Total Bilirubin AST ALT Lactate Dehydrogenase C-Reactive Protein Albumin Triglycerides Arterial Blood Glucose Arterial Blood Ionized Calcium Urine Creatinine Coronavirus (PCR) Crossmatch 02/02/21 02/02/21 02/02/21 05:18 05:35 11:28 WBC RBC Hgb Hct MCV MCH MCHC RDW Plt Count Lymph % (Auto) Lymph # (Auto) Seg Neutrophils % Seg Neuts % (Manual) Lymphocytes % (Manual) Nucleated RBC % Seg Neutrophils # Seg Neutrophils # Man Lymphocytes # (Manual) Eosinophils # (Manual) INR D-Dimer ABG pH 7.195 L* POC ABG pCO2 POC ABG pO2 ABG pO2 72.5 L ABG HCO3 ABG O2 Saturation 91.2 L ABG Base Excess -5.3 L ABG Hemoglobin 6.0 L ABG Oxyhemoglobin ABG Sodium ABG Potassium ABG Chloride ABG Glucose Oxyhemoglobin 89.1 L Carboxyhemoglobin Sodium Potassium Chloride 110.4 H Carbon Dioxide BUN 92 H Creatinine Glucose POC Glucose 239 H Hemoglobin A1c Lactic Acid Calcium Phosphorus Magnesium Ferritin Total Bilirubin AST ALT Lactate Dehydrogenase C-Reactive Protein Albumin Triglycerides Arterial Blood Glucose Arterial Blood Ionized Calcium Urine Creatinine Coronavirus (PCR) Crossmatch 02/02/21 02/02/21 02/02/21 11:53 16:00 18:04 WBC RBC Hgb Hct MCV MCH MCHC RDW Plt Count Lymph % (Auto) Lymph # (Auto) Seg Neutrophils % Seg Neuts % (Manual) Lymphocytes % (Manual) Nucleated RBC % Seg Neutrophils # Seg Neutrophils # Man Lymphocytes # (Manual) Eosinophils # (Manual) INR D-Dimer ABG pH POC ABG pCO2 POC ABG pO2 ABG pO2 ABG HCO3 ABG O2 Saturation ABG Base Excess ABG Hemoglobin ABG Oxyhemoglobin ABG Sodium ABG Potassium ABG Chloride ABG Glucose Oxyhemoglobin Carboxyhemoglobin Sodium Potassium Chloride Carbon Dioxide BUN Creatinine Glucose POC Glucose 248 H 199 H Hemoglobin A1c 6.3 H Lactic Acid Calcium Phosphorus Magnesium Ferritin Total Bilirubin AST ALT Lactate Dehydrogenase C-Reactive Protein Albumin Triglycerides Arterial Blood Glucose Arterial Blood Ionized Calcium Urine Creatinine Coronavirus (PCR) Crossmatch 02/02/21 02/03/21 02/03/21 23:31 03:12 04:10 WBC RBC 3.06 L Hgb 9.7 L Hct 30.4 L MCV 99 H MCH MCHC RDW 15.3 H Plt Count Lymph % (Auto) 6.1 L Lymph # (Auto) 0.5 L Seg Neutrophils % 86.1 H Seg Neuts % (Manual) Lymphocytes % (Manual) Nucleated RBC % Seg Neutrophils # Seg Neutrophils # Man Lymphocytes # (Manual) Eosinophils # (Manual) INR D-Dimer ABG pH 7.199 L POC ABG pCO2 48.3 H POC ABG pO2 68.3 L ABG pO2 ABG HCO3 ABG O2 Saturation ABG Base Excess ABG Hemoglobin 10.2 L ABG Oxyhemoglobin 89.2 L ABG Sodium 155.0 H ABG Potassium 4.6 H ABG Chloride 121.0 H ABG Glucose 166 H Oxyhemoglobin Carboxyhemoglobin 0.3 L Sodium Potassium Chloride Carbon Dioxide BUN Creatinine Glucose POC Glucose 200 H Hemoglobin A1c Lactic Acid Calcium Phosphorus Magnesium Ferritin Total Bilirubin AST ALT Lactate Dehydrogenase C-Reactive Protein Albumin Triglycerides Arterial Blood Glucose 166 H Arterial Blood Ionized Calcium 4.1 L Urine Creatinine Coronavirus (PCR) Crossmatch 02/03/21 02/03/21 02/03/21 04:10 05:34 11:51 WBC RBC Hgb Hct MCV MCH MCHC RDW Plt Count Lymph % (Auto) Lymph # (Auto) Seg Neutrophils % Seg Neuts % (Manual) Lymphocytes % (Manual) Nucleated RBC % Seg Neutrophils # Seg Neutrophils # Man Lymphocytes # (Manual) Eosinophils # (Manual) INR D-Dimer ABG pH POC ABG pCO2 POC ABG pO2 ABG pO2 ABG HCO3 ABG O2 Saturation ABG Base Excess ABG Hemoglobin ABG Oxyhemoglobin ABG Sodium ABG Potassium ABG Chloride ABG Glucose Oxyhemoglobin Carboxyhemoglobin Sodium 154 H D Potassium Chloride 116.7 H Carbon Dioxide 20 L BUN 130 H Creatinine 9.2 H D Glucose 160 H POC Glucose 130 H 154 H Hemoglobin A1c Lactic Acid Calcium 6.7 L Phosphorus 8.60 H Magnesium Ferritin Total Bilirubin AST ALT Lactate Dehydrogenase C-Reactive Protein Albumin Triglycerides Arterial Blood Glucose Arterial Blood Ionized Calcium Urine Creatinine Coronavirus (PCR) Crossmatch 02/03/21 02/03/21 02/04/21 16:49 23:22 03:48 WBC RBC Hgb Hct MCV MCH MCHC RDW Plt Count Lymph % (Auto) Lymph # (Auto) Seg Neutrophils % Seg Neuts % (Manual) Lymphocytes % (Manual) Nucleated RBC % Seg Neutrophils # Seg Neutrophils # Man Lymphocytes # (Manual) Eosinophils # (Manual) INR D-Dimer ABG pH 7.201 L POC ABG pCO2 54.5 H POC ABG pO2 74.0 L ABG pO2 ABG HCO3 ABG O2 Saturation ABG Base Excess ABG Hemoglobin 9.7 L ABG Oxyhemoglobin 91.1 L ABG Sodium 146.2 H ABG Potassium ABG Chloride 114.0 H ABG Glucose 155 H Oxyhemoglobin Carboxyhemoglobin Sodium Potassium Chloride Carbon Dioxide BUN Creatinine Glucose POC Glucose 164 H 152 H Hemoglobin A1c Lactic Acid Calcium Phosphorus Magnesium Ferritin Total Bilirubin AST ALT Lactate Dehydrogenase C-Reactive Protein Albumin Triglycerides Arterial Blood Glucose 155 H Arterial Blood Ionized Calcium 3.9 L Urine Creatinine Coronavirus (PCR) Crossmatch 02/04/21 02/04/21 02/04/21 04:45 04:45 04:45 WBC RBC 2.75 L Hgb 9.1 L Hct 26.9 L MCV 98 H MCH 33 H MCHC RDW Plt Count Lymph % (Auto) 6.8 L Lymph # (Auto) 0.5 L Seg Neutrophils % 87.2 H Seg Neuts % (Manual) Lymphocytes % (Manual) Nucleated RBC % Seg Neutrophils # Seg Neutrophils # Man Lymphocytes # (Manual) Eosinophils # (Manual) INR D-Dimer ABG pH POC ABG pCO2 POC ABG pO2 ABG pO2 ABG HCO3 ABG O2 Saturation ABG Base Excess ABG Hemoglobin ABG Oxyhemoglobin ABG Sodium ABG Potassium ABG Chloride ABG Glucose Oxyhemoglobin Carboxyhemoglobin Sodium 149 H Potassium Chloride 111.5 H Carbon Dioxide BUN 99 H Creatinine 8.5 H Glucose 139 H POC Glucose Hemoglobin A1c Lactic Acid Calcium 6.8 L Phosphorus 8.40 H Magnesium Ferritin Total Bilirubin AST ALT Lactate Dehydrogenase C-Reactive Protein Albumin Triglycerides Arterial Blood Glucose Arterial Blood Ionized Calcium Urine Creatinine Coronavirus (PCR) Crossmatch 02/04/21 02/04/21 02/04/21 06:05 11:44 18:00 WBC RBC Hgb Hct MCV MCH MCHC RDW Plt Count Lymph % (Auto) Lymph # (Auto) Seg Neutrophils % Seg Neuts % (Manual) Lymphocytes % (Manual) Nucleated RBC % Seg Neutrophils # Seg Neutrophils # Man Lymphocytes # (Manual) Eosinophils # (Manual) INR D-Dimer ABG pH POC ABG pCO2 POC ABG pO2 ABG pO2 ABG HCO3 ABG O2 Saturation ABG Base Excess ABG Hemoglobin ABG Oxyhemoglobin ABG Sodium ABG Potassium ABG Chloride ABG Glucose Oxyhemoglobin Carboxyhemoglobin Sodium Potassium Chloride Carbon Dioxide BUN Creatinine Glucose POC Glucose 138 H 129 H 163 H Hemoglobin A1c Lactic Acid Calcium Phosphorus Magnesium Ferritin Total Bilirubin AST ALT Lactate Dehydrogenase C-Reactive Protein Albumin Triglycerides Arterial Blood Glucose Arterial Blood Ionized Calcium Urine Creatinine Coronavirus (PCR) Crossmatch 02/04/21 02/05/21 02/05/21 23:48 01:50 01:50 WBC RBC 2.43 L Hgb 8.3 L Hct 23.6 L MCV 97 H MCH 34 H MCHC 35 H RDW Plt Count 137 L Lymph % (Auto) 8.4 L Lymph # (Auto) 0.6 L Seg Neutrophils % 86.1 H Seg Neuts % (Manual) Lymphocytes % (Manual) Nucleated RBC % Seg Neutrophils # Seg Neutrophils # Man Lymphocytes # (Manual) Eosinophils # (Manual) INR D-Dimer ABG pH POC ABG pCO2 POC ABG pO2 ABG pO2 ABG HCO3 ABG O2 Saturation ABG Base Excess ABG Hemoglobin ABG Oxyhemoglobin ABG Sodium ABG Potassium ABG Chloride ABG Glucose Oxyhemoglobin Carboxyhemoglobin Sodium Potassium Chloride Carbon Dioxide BUN Creatinine Glucose POC Glucose 157 H Hemoglobin A1c Lactic Acid Calcium Phosphorus 5.60 H D Magnesium Ferritin Total Bilirubin AST ALT Lactate Dehydrogenase C-Reactive Protein Albumin Triglycerides Arterial Blood Glucose Arterial Blood Ionized Calcium Urine Creatinine Coronavirus (PCR) Crossmatch 02/05/21 02/05/21 02/05/21 03:44 05:27 09:15 WBC RBC Hgb Hct MCV MCH MCHC RDW Plt Count Lymph % (Auto) Lymph # (Auto) Seg Neutrophils % Seg Neuts % (Manual) Lymphocytes % (Manual) Nucleated RBC % Seg Neutrophils # Seg Neutrophils # Man Lymphocytes # (Manual) Eosinophils # (Manual) INR D-Dimer ABG pH 7.202 L POC ABG pCO2 63.7 H POC ABG pO2 69.0 L ABG pO2 ABG HCO3 ABG O2 Saturation ABG Base Excess ABG Hemoglobin 9.4 L ABG Oxyhemoglobin ABG Sodium ABG Potassium ABG Chloride 108.0 H ABG Glucose 186 H Oxyhemoglobin Carboxyhemoglobin Sodium Potassium Chloride Carbon Dioxide BUN 78 H Creatinine 8.0 H Glucose 163 H POC Glucose 157 H Hemoglobin A1c Lactic Acid Calcium 6.3 L Phosphorus Magnesium Ferritin Total Bilirubin AST ALT Lactate Dehydrogenase C-Reactive Protein Albumin Triglycerides Arterial Blood Glucose 186 H Arterial Blood Ionized Calcium 3.9 L Urine Creatinine Coronavirus (PCR) Crossmatch 02/05/21 02/05/21 02/05/21 11:47 17:39 23:40 WBC RBC Hgb Hct MCV MCH MCHC RDW Plt Count Lymph % (Auto) Lymph # (Auto) Seg Neutrophils % Seg Neuts % (Manual) Lymphocytes % (Manual) Nucleated RBC % Seg Neutrophils # Seg Neutrophils # Man Lymphocytes # (Manual) Eosinophils # (Manual) INR D-Dimer ABG pH 7.273 L POC ABG pCO2 62.1 H POC ABG pO2 72.0 L ABG pO2 ABG HCO3 ABG O2 Saturation ABG Base Excess ABG Hemoglobin 9.1 L ABG Oxyhemoglobin 91.3 L ABG Sodium ABG Potassium 3.1 L ABG Chloride ABG Glucose 125 H Oxyhemoglobin Carboxyhemoglobin Sodium Potassium Chloride Carbon Dioxide BUN Creatinine Glucose POC Glucose 126 H 126 H Hemoglobin A1c Lactic Acid Calcium Phosphorus Magnesium Ferritin Total Bilirubin AST ALT Lactate Dehydrogenase C-Reactive Protein Albumin Triglycerides Arterial Blood Glucose 125 H Arterial Blood Ionized Calcium 4.0 L Urine Creatinine Coronavirus (PCR) Crossmatch 02/06/21 02/06/21 02/06/21 04:30 04:57 09:45 WBC RBC Hgb Hct MCV MCH MCHC RDW Plt Count Lymph % (Auto) Lymph # (Auto) Seg Neutrophils % Seg Neuts % (Manual) Lymphocytes % (Manual) Nucleated RBC % Seg Neutrophils # Seg Neutrophils # Man Lymphocytes # (Manual) Eosinophils # (Manual) INR D-Dimer ABG pH 7.159 L 7.138 L* POC ABG pCO2 76.3 H POC ABG pO2 66.9 L ABG pO2 ABG HCO3 ABG O2 Saturation 93.4 L ABG Base Excess -6.0 L ABG Hemoglobin 11.2 L 11.7 L ABG Oxyhemoglobin 88.2 L ABG Sodium ABG Potassium ABG Chloride ABG Glucose 134 H Oxyhemoglobin 91.2 L Carboxyhemoglobin Sodium Potassium Chloride Carbon Dioxide BUN Creatinine Glucose POC Glucose 124 H Hemoglobin A1c Lactic Acid Calcium Phosphorus Magnesium Ferritin Total Bilirubin AST ALT Lactate Dehydrogenase C-Reactive Protein Albumin Triglycerides Arterial Blood Glucose 134 H Arterial Blood Ionized Calcium 3.9 L Urine Creatinine Coronavirus (PCR) Crossmatch 02/06/21 02/06/21 02/06/21 11:11 17:00 17:00 WBC RBC Hgb Hct MCV MCH MCHC RDW Plt Count Lymph % (Auto) Lymph # (Auto) Seg Neutrophils % Seg Neuts % (Manual) Lymphocytes % (Manual) Nucleated RBC % Seg Neutrophils # Seg Neutrophils # Man Lymphocytes # (Manual) Eosinophils # (Manual) INR D-Dimer ABG pH 7.158 L* POC ABG pCO2 POC ABG pO2 ABG pO2 109.8 H ABG HCO3 28.7 H ABG O2 Saturation ABG Base Excess -2.5 L ABG Hemoglobin ABG Oxyhemoglobin ABG Sodium ABG Potassium ABG Chloride ABG Glucose Oxyhemoglobin 94.5 L Carboxyhemoglobin Sodium Potassium Chloride Carbon Dioxide BUN Creatinine Glucose POC Glucose 120 H Hemoglobin A1c Lactic Acid Calcium Phosphorus Magnesium Ferritin Total Bilirubin AST ALT Lactate Dehydrogenase C-Reactive Protein Albumin Triglycerides 503 H Arterial Blood Glucose Arterial Blood Ionized Calcium Urine Creatinine Coronavirus (PCR) Crossmatch 02/06/21 02/06/21 02/06/21 17:28 20:16 Unknown WBC 13.5 H RBC 2.98 L Hgb 9.3 L Hct 28.6 L MCV 96 H MCH MCHC RDW Plt Count Lymph % (Auto) Lymph # (Auto) Seg Neutrophils % Seg Neuts % (Manual) 87.0 H Lymphocytes % (Manual) 7.0 L Nucleated RBC % Seg Neutrophils # Seg Neutrophils # Man 11.7 H Lymphocytes # (Manual) 0.9 L Eosinophils # (Manual) 0.5 H INR D-Dimer ABG pH POC ABG pCO2 POC ABG pO2 ABG pO2 ABG HCO3 ABG O2 Saturation ABG Base Excess ABG Hemoglobin ABG Oxyhemoglobin ABG Sodium ABG Potassium ABG Chloride ABG Glucose Oxyhemoglobin Carboxyhemoglobin Sodium Potassium Chloride Carbon Dioxide BUN Creatinine Glucose POC Glucose 147 H 164 H Hemoglobin A1c Lactic Acid Calcium Phosphorus Magnesium Ferritin Total Bilirubin AST ALT Lactate Dehydrogenase C-Reactive Protein Albumin Triglycerides Arterial Blood Glucose Arterial Blood Ionized Calcium Urine Creatinine Coronavirus (PCR) Crossmatch 02/06/21 02/07/21 02/07/21 Unknown 01:21 04:00 WBC 12.0 H RBC 2.61 L Hgb 8.2 L Hct 24.5 L MCV MCH MCHC RDW Plt Count Lymph % (Auto) 8.9 L Lymph # (Auto) 1.1 L Seg Neutrophils % 86.3 H Seg Neuts % (Manual) Lymphocytes % (Manual) Nucleated RBC % Seg Neutrophils # 10.3 H Seg Neutrophils # Man Lymphocytes # (Manual) Eosinophils # (Manual) INR D-Dimer ABG pH POC ABG pCO2 POC ABG pO2 ABG pO2 ABG HCO3 ABG O2 Saturation ABG Base Excess ABG Hemoglobin ABG Oxyhemoglobin ABG Sodium ABG Potassium ABG Chloride ABG Glucose Oxyhemoglobin Carboxyhemoglobin Sodium Potassium 3.5 L Chloride Carbon Dioxide BUN 58 H Creatinine 6.6 H Glucose 107 H POC Glucose 173 H Hemoglobin A1c Lactic Acid Calcium 6.7 L Phosphorus 8.00 H D Magnesium Ferritin Total Bilirubin AST ALT Lactate Dehydrogenase C-Reactive Protein Albumin Triglycerides Arterial Blood Glucose Arterial Blood Ionized Calcium Urine Creatinine Coronavirus (PCR) Crossmatch 02/07/21 02/07/21 02/07/21 04:00 04:45 11:49 WBC RBC Hgb Hct MCV MCH MCHC RDW Plt Count Lymph % (Auto) Lymph # (Auto) Seg Neutrophils % Seg Neuts % (Manual) Lymphocytes % (Manual) Nucleated RBC % Seg Neutrophils # Seg Neutrophils # Man Lymphocytes # (Manual) Eosinophils # (Manual) INR D-Dimer ABG pH 7.287 L POC ABG pCO2 64.8 H POC ABG pO2 74.0 L ABG pO2 ABG HCO3 ABG O2 Saturation ABG Base Excess ABG Hemoglobin 9.1 L ABG Oxyhemoglobin 92.0 L ABG Sodium ABG Potassium 2.8 L ABG Chloride ABG Glucose 226 H Oxyhemoglobin Carboxyhemoglobin Sodium Potassium Chloride Carbon Dioxide BUN Creatinine Glucose POC Glucose 170 H Hemoglobin A1c Lactic Acid Calcium Phosphorus 5.50 H D Magnesium Ferritin Total Bilirubin AST ALT Lactate Dehydrogenase C-Reactive Protein Albumin Triglycerides Arterial Blood Glucose 226 H Arterial Blood Ionized Calcium 3.7 L Urine Creatinine Coronavirus (PCR) Crossmatch 02/07/21 02/07/21 02/07/21 13:48 17:45 23:02 WBC RBC Hgb Hct MCV MCH MCHC RDW Plt Count Lymph % (Auto) Lymph # (Auto) Seg Neutrophils % Seg Neuts % (Manual) Lymphocytes % (Manual) Nucleated RBC % Seg Neutrophils # Seg Neutrophils # Man Lymphocytes # (Manual) Eosinophils # (Manual) INR D-Dimer ABG pH POC ABG pCO2 POC ABG pO2 ABG pO2 ABG HCO3 ABG O2 Saturation ABG Base Excess ABG Hemoglobin ABG Oxyhemoglobin ABG Sodium ABG Potassium ABG Chloride ABG Glucose Oxyhemoglobin Carboxyhemoglobin Sodium 136 L Potassium 2.6 L* D Chloride 95.1 L Carbon Dioxide 33 H D BUN 30 H Creatinine 3.6 H Glucose 184 H POC Glucose 172 H 172 H Hemoglobin A1c Lactic Acid Calcium 6.9 L Phosphorus Magnesium Ferritin Total Bilirubin AST ALT Lactate Dehydrogenase C-Reactive Protein Albumin Triglycerides Arterial Blood Glucose Arterial Blood Ionized Calcium Urine Creatinine Coronavirus (PCR) Crossmatch 02/08/21 02/08/21 02/08/21 05:22 06:00 06:00 WBC RBC 2.21 L Hgb 7.2 L Hct 21.0 L MCV 95 H MCH MCHC RDW Plt Count Lymph % (Auto) Lymph # (Auto) Seg Neutrophils % Seg Neuts % (Manual) 87.0 H Lymphocytes % (Manual) 4.0 L Nucleated RBC % Seg Neutrophils # Seg Neutrophils # Man 8.5 H Lymphocytes # (Manual) 0.4 L Eosinophils # (Manual) INR D-Dimer ABG pH POC ABG pCO2 POC ABG pO2 ABG pO2 ABG HCO3 ABG O2 Saturation ABG Base Excess ABG Hemoglobin ABG Oxyhemoglobin ABG Sodium ABG Potassium ABG Chloride ABG Glucose Oxyhemoglobin Carboxyhemoglobin Sodium 136 L Potassium 2.4 L* Chloride 93.1 L Carbon Dioxide 36 H BUN 43 H Creatinine 5.4 H Glucose 167 H POC Glucose 162 H Hemoglobin A1c Lactic Acid Calcium 6.3 L Phosphorus Magnesium Ferritin Total Bilirubin AST ALT Lactate Dehydrogenase C-Reactive Protein Albumin Triglycerides Arterial Blood Glucose Arterial Blood Ionized Calcium Urine Creatinine Coronavirus (PCR) Crossmatch 02/08/21 02/08/21 02/08/21 11:44 17:53 18:56 WBC RBC Hgb Hct MCV MCH MCHC RDW Plt Count Lymph % (Auto) Lymph # (Auto) Seg Neutrophils % Seg Neuts % (Manual) Lymphocytes % (Manual) Nucleated RBC % Seg Neutrophils # Seg Neutrophils # Man Lymphocytes # (Manual) Eosinophils # (Manual) INR D-Dimer ABG pH POC ABG pCO2 POC ABG pO2 ABG pO2 ABG HCO3 ABG O2 Saturation ABG Base Excess ABG Hemoglobin ABG Oxyhemoglobin ABG Sodium ABG Potassium ABG Chloride ABG Glucose Oxyhemoglobin Carboxyhemoglobin Sodium Potassium 2.9 L* D Chloride Carbon Dioxide BUN Creatinine Glucose POC Glucose 164 H 154 H Hemoglobin A1c Lactic Acid Calcium Phosphorus Magnesium Ferritin Total Bilirubin AST ALT Lactate Dehydrogenase C-Reactive Protein Albumin Triglycerides Arterial Blood Glucose Arterial Blood Ionized Calcium Urine Creatinine Coronavirus (PCR) Crossmatch 02/08/21 02/08/21 02/09/21 23:24 23:58 03:21 WBC RBC Hgb Hct MCV MCH MCHC RDW Plt Count Lymph % (Auto) Lymph # (Auto) Seg Neutrophils % Seg Neuts % (Manual) Lymphocytes % (Manual) Nucleated RBC % Seg Neutrophils # Seg Neutrophils # Man Lymphocytes # (Manual) Eosinophils # (Manual) INR D-Dimer ABG pH 7.319 L POC ABG pCO2 63.3 H 68.3 H POC ABG pO2 71.2 L 76.5 L ABG pO2 ABG HCO3 ABG O2 Saturation ABG Base Excess ABG Hemoglobin 8.2 L 7.0 L ABG Oxyhemoglobin 91.8 L 92.2 L ABG Sodium 134.6 L 133.0 L ABG Potassium 2.3 L 3.1 L ABG Chloride 96.0 L 95.0 L ABG Glucose 184 H 154 H Oxyhemoglobin Carboxyhemoglobin Sodium Potassium Chloride Carbon Dioxide BUN Creatinine Glucose POC Glucose 152 H Hemoglobin A1c Lactic Acid Calcium Phosphorus Magnesium Ferritin Total Bilirubin AST ALT Lactate Dehydrogenase C-Reactive Protein Albumin Triglycerides Arterial Blood Glucose 184 H 154 H Arterial Blood Ionized Calcium 3.6 L 3.5 L Urine Creatinine Coronavirus (PCR) Crossmatch 02/09/21 02/09/21 02/09/21 05:10 05:10 06:04 WBC RBC 2.14 L Hgb 7.0 L Hct 20.5 L MCV 96 H MCH 33 H MCHC RDW Plt Count Lymph % (Auto) Lymph # (Auto) Seg Neutrophils % Seg Neuts % (Manual) 82.0 H Lymphocytes % (Manual) 9.0 L Nucleated RBC % 1.0 H Seg Neutrophils # Seg Neutrophils # Man 8.9 H Lymphocytes # (Manual) 1.0 L Eosinophils # (Manual) INR D-Dimer ABG pH POC ABG pCO2 POC ABG pO2 ABG pO2 ABG HCO3 ABG O2 Saturation ABG Base Excess ABG Hemoglobin ABG Oxyhemoglobin ABG Sodium ABG Potassium ABG Chloride ABG Glucose Oxyhemoglobin Carboxyhemoglobin Sodium 135 L Potassium 3.2 L Chloride 91.0 L Carbon Dioxide 32 H BUN 54 H Creatinine 6.6 H Glucose 163 H POC Glucose 149 H Hemoglobin A1c Lactic Acid Calcium 6.2 L Phosphorus Magnesium Ferritin Total Bilirubin AST ALT Lactate Dehydrogenase C-Reactive Protein Albumin Triglycerides Arterial Blood Glucose Arterial Blood Ionized Calcium Urine Creatinine Coronavirus (PCR) Crossmatch 02/09/21 02/09/21 02/09/21 12:02 13:32 13:40 WBC RBC Hgb Hct MCV MCH MCHC RDW Plt Count Lymph % (Auto) Lymph # (Auto) Seg Neutrophils % Seg Neuts % (Manual) Lymphocytes % (Manual) Nucleated RBC % Seg Neutrophils # Seg Neutrophils # Man Lymphocytes # (Manual) Eosinophils # (Manual) INR D-Dimer ABG pH POC ABG pCO2 POC ABG pO2 ABG pO2 ABG HCO3 ABG O2 Saturation ABG Base Excess ABG Hemoglobin ABG Oxyhemoglobin ABG Sodium ABG Potassium ABG Chloride ABG Glucose Oxyhemoglobin Carboxyhemoglobin Sodium Potassium Chloride Carbon Dioxide BUN Creatinine Glucose POC Glucose 147 H Hemoglobin A1c Lactic Acid Calcium Phosphorus Magnesium Ferritin Total Bilirubin AST ALT Lactate Dehydrogenase C-Reactive Protein Albumin Triglycerides 250 H Arterial Blood Glucose Arterial Blood Ionized Calcium Urine Creatinine Coronavirus (PCR) Crossmatch See Detail 02/09/21 02/09/21 02/10/21 18:06 23:42 04:00 WBC RBC Hgb Hct MCV MCH MCHC RDW Plt Count Lymph % (Auto) Lymph # (Auto) Seg Neutrophils % Seg Neuts % (Manual) Lymphocytes % (Manual) Nucleated RBC % Seg Neutrophils # Seg Neutrophils # Man Lymphocytes # (Manual) Eosinophils # (Manual) INR D-Dimer ABG pH POC ABG pCO2 65.8 H POC ABG pO2 68.0 L ABG pO2 ABG HCO3 ABG O2 Saturation ABG Base Excess ABG Hemoglobin 8.3 L ABG Oxyhemoglobin ABG Sodium 132.4 L ABG Potassium 2.9 L ABG Chloride 92.0 L ABG Glucose 174 H Oxyhemoglobin Carboxyhemoglobin Sodium Potassium Chloride Carbon Dioxide BUN Creatinine Glucose POC Glucose 152 H 147 H Hemoglobin A1c Lactic Acid Calcium Phosphorus Magnesium Ferritin Total Bilirubin AST ALT Lactate Dehydrogenase C-Reactive Protein Albumin Triglycerides Arterial Blood Glucose 174 H Arterial Blood Ionized Calcium 3.4 L Urine Creatinine Coronavirus (PCR) Crossmatch 02/10/21 02/10/21 02/10/21 05:32 11:29 14:08 WBC 12.5 H RBC 2.14 L Hgb 6.6 L Hct 20.2 L MCV MCH MCHC RDW Plt Count Lymph % (Auto) Lymph # (Auto) Seg Neutrophils % Seg Neuts % (Manual) Lymphocytes % (Manual) Nucleated RBC % Seg Neutrophils # Seg Neutrophils # Man Lymphocytes # (Manual) Eosinophils # (Manual) INR D-Dimer ABG pH POC ABG pCO2 POC ABG pO2 ABG pO2 ABG HCO3 ABG O2 Saturation ABG Base Excess ABG Hemoglobin ABG Oxyhemoglobin ABG Sodium ABG Potassium ABG Chloride ABG Glucose Oxyhemoglobin Carboxyhemoglobin Sodium Potassium Chloride Carbon Dioxide BUN Creatinine Glucose POC Glucose 167 H 147 H Hemoglobin A1c Lactic Acid Calcium Phosphorus Magnesium Ferritin Total Bilirubin AST ALT Lactate Dehydrogenase C-Reactive Protein Albumin Triglycerides Arterial Blood Glucose Arterial Blood Ionized Calcium Urine Creatinine Coronavirus (PCR) Crossmatch 02/10/21 02/10/21 02/10/21 14:08 18:11 22:32 WBC RBC Hgb 6.4 L Hct 19.1 L* MCV MCH MCHC RDW Plt Count Lymph % (Auto) Lymph # (Auto) Seg Neutrophils % Seg Neuts % (Manual) Lymphocytes % (Manual) Nucleated RBC % Seg Neutrophils # Seg Neutrophils # Man Lymphocytes # (Manual) Eosinophils # (Manual) INR D-Dimer ABG pH POC ABG pCO2 POC ABG pO2 ABG pO2 ABG HCO3 ABG O2 Saturation ABG Base Excess ABG Hemoglobin ABG Oxyhemoglobin ABG Sodium ABG Potassium ABG Chloride ABG Glucose Oxyhemoglobin Carboxyhemoglobin Sodium 136 L Potassium 2.9 L* Chloride 90.2 L Carbon Dioxide 33 H BUN 42 H Creatinine 7.5 H Glucose 155 H POC Glucose 173 H Hemoglobin A1c Lactic Acid Calcium 6.1 L Phosphorus Magnesium Ferritin Total Bilirubin AST ALT Lactate Dehydrogenase C-Reactive Protein Albumin Triglycerides Arterial Blood Glucose Arterial Blood Ionized Calcium Urine Creatinine Coronavirus (PCR) Crossmatch 02/11/21 02/11/21 02/11/21 00:28 04:05 04:30 WBC RBC Hgb Hct MCV MCH MCHC RDW Plt Count Lymph % (Auto) Lymph # (Auto) Seg Neutrophils % Seg Neuts % (Manual) Lymphocytes % (Manual) Nucleated RBC % Seg Neutrophils # Seg Neutrophils # Man Lymphocytes # (Manual) Eosinophils # (Manual) INR D-Dimer ABG pH 7.307 L POC ABG pCO2 72.2 H POC ABG pO2 72.3 L ABG pO2 ABG HCO3 ABG O2 Saturation ABG Base Excess ABG Hemoglobin 8.2 L ABG Oxyhemoglobin ABG Sodium 132.3 L ABG Potassium 3.2 L ABG Chloride 91.0 L ABG Glucose 197 H Oxyhemoglobin Carboxyhemoglobin Sodium 135 L Potassium 3.3 L Chloride 87.1 L Carbon Dioxide 36 H BUN 71 H Creatinine 7.9 H Glucose 263 H POC Glucose 192 H Hemoglobin A1c Lactic Acid Calcium 6.2 L Phosphorus Magnesium Ferritin Total Bilirubin AST ALT Lactate Dehydrogenase C-Reactive Protein Albumin Triglycerides Arterial Blood Glucose 197 H Arterial Blood Ionized Calcium 3.3 L Urine Creatinine Coronavirus (PCR) Crossmatch 02/11/21 02/11/21 02/11/21 04:30 05:47 08:27 WBC RBC 2.22 L Hgb 7.2 L Hct 21.0 L MCV MCH MCHC RDW Plt Count Lymph % (Auto) 8.7 L Lymph # (Auto) 0.9 L Seg Neutrophils % 85.5 H Seg Neuts % (Manual) Lymphocytes % (Manual) Nucleated RBC % Seg Neutrophils # 9.2 H Seg Neutrophils # Man Lymphocytes # (Manual) Eosinophils # (Manual) INR 1.17 H D-Dimer 1930.92 H ABG pH POC ABG pCO2 POC ABG pO2 ABG pO2 ABG HCO3 ABG O2 Saturation ABG Base Excess ABG Hemoglobin ABG Oxyhemoglobin ABG Sodium ABG Potassium ABG Chloride ABG Glucose Oxyhemoglobin Carboxyhemoglobin Sodium Potassium Chloride Carbon Dioxide BUN Creatinine Glucose POC Glucose 189 H Hemoglobin A1c Lactic Acid Calcium Phosphorus Magnesium Ferritin Total Bilirubin AST ALT Lactate Dehydrogenase C-Reactive Protein Albumin Triglycerides Arterial Blood Glucose Arterial Blood Ionized Calcium Urine Creatinine Coronavirus (PCR) Crossmatch 02/11/21 02/11/21 02/11/21 09:00 09:00 13:18 WBC RBC Hgb Hct MCV MCH MCHC RDW Plt Count Lymph % (Auto) Lymph # (Auto) Seg Neutrophils % Seg Neuts % (Manual) Lymphocytes % (Manual) Nucleated RBC % Seg Neutrophils # Seg Neutrophils # Man Lymphocytes # (Manual) Eosinophils # (Manual) INR D-Dimer ABG pH POC ABG pCO2 POC ABG pO2 ABG pO2 ABG HCO3 ABG O2 Saturation ABG Base Excess ABG Hemoglobin ABG Oxyhemoglobin ABG Sodium ABG Potassium ABG Chloride ABG Glucose Oxyhemoglobin Carboxyhemoglobin Sodium Potassium Chloride Carbon Dioxide BUN Creatinine Glucose 126 H POC Glucose 160 H Hemoglobin A1c Lactic Acid Calcium Phosphorus Magnesium Ferritin 1253.0 H Total Bilirubin AST ALT Lactate Dehydrogenase 649 H C-Reactive Protein 12.60 H Albumin Triglycerides Arterial Blood Glucose Arterial Blood Ionized Calcium Urine Creatinine Coronavirus (PCR) Crossmatch 02/11/21 02/11/21 02/11/21 14:30 16:59 22:34 WBC RBC Hgb 7.1 L 6.7 L Hct 20.5 L 19.9 L* MCV MCH MCHC RDW Plt Count Lymph % (Auto) Lymph # (Auto) Seg Neutrophils % Seg Neuts % (Manual) Lymphocytes % (Manual) Nucleated RBC % Seg Neutrophils # Seg Neutrophils # Man Lymphocytes # (Manual) Eosinophils # (Manual) INR D-Dimer ABG pH POC ABG pCO2 POC ABG pO2 ABG pO2 ABG HCO3 ABG O2 Saturation ABG Base Excess ABG Hemoglobin ABG Oxyhemoglobin ABG Sodium ABG Potassium ABG Chloride ABG Glucose Oxyhemoglobin Carboxyhemoglobin Sodium Potassium Chloride Carbon Dioxide BUN Creatinine Glucose POC Glucose 151 H Hemoglobin A1c Lactic Acid Calcium Phosphorus Magnesium Ferritin Total Bilirubin AST ALT Lactate Dehydrogenase C-Reactive Protein Albumin Triglycerides Arterial Blood Glucose Arterial Blood Ionized Calcium Urine Creatinine Coronavirus (PCR) Crossmatch 02/11/21 02/12/21 02/12/21 23:42 04:41 05:19 WBC RBC Hgb Hct MCV MCH MCHC RDW Plt Count Lymph % (Auto) Lymph # (Auto) Seg Neutrophils % Seg Neuts % (Manual) Lymphocytes % (Manual) Nucleated RBC % Seg Neutrophils # Seg Neutrophils # Man Lymphocytes # (Manual) Eosinophils # (Manual) INR D-Dimer ABG pH POC ABG pCO2 POC ABG pO2 ABG pO2 69.0 L ABG HCO3 32.5 H ABG O2 Saturation ABG Base Excess 7.7 H ABG Hemoglobin 5.1 L ABG Oxyhemoglobin ABG Sodium ABG Potassium ABG Chloride ABG Glucose Oxyhemoglobin 94.7 L Carboxyhemoglobin Sodium Potassium Chloride Carbon Dioxide BUN Creatinine Glucose POC Glucose 165 H 153 H Hemoglobin A1c Lactic Acid Calcium Phosphorus Magnesium Ferritin Total Bilirubin AST ALT Lactate Dehydrogenase C-Reactive Protein Albumin Triglycerides Arterial Blood Glucose Arterial Blood Ionized Calcium Urine Creatinine Coronavirus (PCR) Crossmatch 02/12/21 02/12/21 02/12/21 06:35 06:35 08:40 WBC RBC 2.21 L Hgb 7.2 L Hct 20.7 L MCV MCH 33 H MCHC 35 H RDW Plt Count Lymph % (Auto) Lymph # (Auto) Seg Neutrophils % Seg Neuts % (Manual) Lymphocytes % (Manual) Nucleated RBC % Seg Neutrophils # Seg Neutrophils # Man Lymphocytes # (Manual) Eosinophils # (Manual) INR D-Dimer ABG pH POC ABG pCO2 POC ABG pO2 ABG pO2 ABG HCO3 ABG O2 Saturation ABG Base Excess ABG Hemoglobin ABG Oxyhemoglobin ABG Sodium ABG Potassium ABG Chloride ABG Glucose Oxyhemoglobin Carboxyhemoglobin Sodium 135 L Potassium 3.4 L Chloride 91.8 L Carbon Dioxide 36 H BUN 57 H Creatinine 6.8 H Glucose 163 H POC Glucose Hemoglobin A1c Lactic Acid Calcium 7.0 L Phosphorus Magnesium 1.60 L Ferritin Total Bilirubin AST ALT Lactate Dehydrogenase C-Reactive Protein Albumin Triglycerides Arterial Blood Glucose Arterial Blood Ionized Calcium Urine Creatinine Coronavirus (PCR) Crossmatch 02/12/21 02/12/21 02/12/21 10:45 12:04 17:19 WBC RBC Hgb Hct MCV MCH MCHC RDW Plt Count Lymph % (Auto) Lymph # (Auto) Seg Neutrophils % Seg Neuts % (Manual) Lymphocytes % (Manual) Nucleated RBC % Seg Neutrophils # Seg Neutrophils # Man Lymphocytes # (Manual) Eosinophils # (Manual) INR D-Dimer ABG pH POC ABG pCO2 POC ABG pO2 ABG pO2 ABG HCO3 ABG O2 Saturation ABG Base Excess ABG Hemoglobin ABG Oxyhemoglobin ABG Sodium ABG Potassium ABG Chloride ABG Glucose Oxyhemoglobin Carboxyhemoglobin Sodium Potassium Chloride Carbon Dioxide BUN Creatinine Glucose POC Glucose 165 H 165 H Hemoglobin A1c Lactic Acid Calcium Phosphorus Magnesium Ferritin Total Bilirubin AST ALT Lactate Dehydrogenase C-Reactive Protein Albumin Triglycerides 182 H Arterial Blood Glucose Arterial Blood Ionized Calcium Urine Creatinine Coronavirus (PCR) Crossmatch 02/12/21 02/13/21 02/13/21 23:18 05:00 05:36 WBC RBC Hgb Hct MCV MCH MCHC RDW Plt Count Lymph % (Auto) Lymph # (Auto) Seg Neutrophils % Seg Neuts % (Manual) Lymphocytes % (Manual) Nucleated RBC % Seg Neutrophils # Seg Neutrophils # Man Lymphocytes # (Manual) Eosinophils # (Manual) INR D-Dimer ABG pH POC ABG pCO2 60.8 H POC ABG pO2 76.4 L ABG pO2 ABG HCO3 ABG O2 Saturation ABG Base Excess ABG Hemoglobin 7.4 L ABG Oxyhemoglobin ABG Sodium 133.2 L ABG Potassium 3.3 L ABG Chloride 96.0 L ABG Glucose 168 H Oxyhemoglobin Carboxyhemoglobin Sodium Potassium Chloride Carbon Dioxide BUN Creatinine Glucose POC Glucose 163 H 151 H Hemoglobin A1c Lactic Acid Calcium Phosphorus Magnesium Ferritin Total Bilirubin AST ALT Lactate Dehydrogenase C-Reactive Protein Albumin Triglycerides Arterial Blood Glucose 168 H Arterial Blood Ionized Calcium 4.3 L Urine Creatinine Coronavirus (PCR) Crossmatch 02/13/21 02/13/21 02/13/21 06:40 06:40 06:40 WBC RBC 2.19 L Hgb 7.0 L Hct 20.8 L MCV 95 H MCH MCHC RDW Plt Count Lymph % (Auto) Lymph # (Auto) Seg Neutrophils % Seg Neuts % (Manual) Lymphocytes % (Manual) Nucleated RBC % Seg Neutrophils # Seg Neutrophils # Man Lymphocytes # (Manual) Eosinophils # (Manual) INR D-Dimer ABG pH POC ABG pCO2 POC ABG pO2 ABG pO2 ABG HCO3 ABG O2 Saturation ABG Base Excess ABG Hemoglobin ABG Oxyhemoglobin ABG Sodium ABG Potassium ABG Chloride ABG Glucose Oxyhemoglobin Carboxyhemoglobin Sodium 135 L Potassium 3.4 L Chloride 93.0 L Carbon Dioxide 32 H BUN 46 H Creatinine 5.8 H Glucose 148 H POC Glucose Hemoglobin A1c Lactic Acid Calcium 7.9 L Phosphorus Magnesium Ferritin Total Bilirubin AST ALT Lactate Dehydrogenase C-Reactive Protein 16.80 H Albumin Triglycerides Arterial Blood Glucose Arterial Blood Ionized Calcium Urine Creatinine Coronavirus (PCR) Crossmatch 02/13/21 02/13/21 02/13/21 06:40 07:38 07:38 WBC RBC Hgb Hct MCV MCH MCHC RDW Plt Count Lymph % (Auto) Lymph # (Auto) Seg Neutrophils % Seg Neuts % (Manual) Lymphocytes % (Manual) Nucleated RBC % Seg Neutrophils # Seg Neutrophils # Man Lymphocytes # (Manual) Eosinophils # (Manual) INR D-Dimer 1722.16 H ABG pH POC ABG pCO2 POC ABG pO2 ABG pO2 ABG HCO3 ABG O2 Saturation ABG Base Excess ABG Hemoglobin ABG Oxyhemoglobin ABG Sodium ABG Potassium ABG Chloride ABG Glucose Oxyhemoglobin Carboxyhemoglobin Sodium Potassium Chloride Carbon Dioxide BUN Creatinine Glucose POC Glucose Hemoglobin A1c Lactic Acid Calcium Phosphorus Magnesium 1.60 L Ferritin 976.5 H Total Bilirubin AST ALT Lactate Dehydrogenase C-Reactive Protein Albumin Triglycerides Arterial Blood Glucose Arterial Blood Ionized Calcium Urine Creatinine Coronavirus (PCR) Crossmatch 02/13/21 02/13/21 02/13/21 12:24 16:57 23:32 WBC RBC Hgb Hct MCV MCH MCHC RDW Plt Count Lymph % (Auto) Lymph # (Auto) Seg Neutrophils % Seg Neuts % (Manual) Lymphocytes % (Manual) Nucleated RBC % Seg Neutrophils # Seg Neutrophils # Man Lymphocytes # (Manual) Eosinophils # (Manual) INR D-Dimer ABG pH POC ABG pCO2 POC ABG pO2 ABG pO2 ABG HCO3 ABG O2 Saturation ABG Base Excess ABG Hemoglobin ABG Oxyhemoglobin ABG Sodium ABG Potassium ABG Chloride ABG Glucose Oxyhemoglobin Carboxyhemoglobin Sodium Potassium Chloride Carbon Dioxide BUN Creatinine Glucose POC Glucose 141 H 156 H 161 H Hemoglobin A1c Lactic Acid Calcium Phosphorus Magnesium Ferritin Total Bilirubin AST ALT Lactate Dehydrogenase C-Reactive Protein Albumin Triglycerides Arterial Blood Glucose Arterial Blood Ionized Calcium Urine Creatinine Coronavirus (PCR) Crossmatch 02/14/21 02/14/21 02/14/21 04:00 05:41 11:00 WBC RBC 2.14 L Hgb 6.9 L Hct 20.7 L MCV 97 H MCH 33 H MCHC RDW Plt Count Lymph % (Auto) Lymph # (Auto) Seg Neutrophils % Seg Neuts % (Manual) Lymphocytes % (Manual) Nucleated RBC % Seg Neutrophils # Seg Neutrophils # Man Lymphocytes # (Manual) Eosinophils # (Manual) INR D-Dimer ABG pH POC ABG pCO2 POC ABG pO2 ABG pO2 ABG HCO3 ABG O2 Saturation ABG Base Excess ABG Hemoglobin ABG Oxyhemoglobin ABG Sodium ABG Potassium ABG Chloride ABG Glucose Oxyhemoglobin Carboxyhemoglobin Sodium Potassium Chloride Carbon Dioxide BUN Creatinine Glucose POC Glucose 143 H Hemoglobin A1c Lactic Acid Calcium Phosphorus Magnesium Ferritin Total Bilirubin AST ALT Lactate Dehydrogenase C-Reactive Protein Albumin Triglycerides Arterial Blood Glucose Arterial Blood Ionized Calcium Urine Creatinine Coronavirus (PCR) Crossmatch See Detail 02/14/21 02/14/21 02/14/21 11:51 18:08 23:41 WBC RBC Hgb Hct MCV MCH MCHC RDW Plt Count Lymph % (Auto) Lymph # (Auto) Seg Neutrophils % Seg Neuts % (Manual) Lymphocytes % (Manual) Nucleated RBC % Seg Neutrophils # Seg Neutrophils # Man Lymphocytes # (Manual) Eosinophils # (Manual) INR D-Dimer ABG pH POC ABG pCO2 POC ABG pO2 ABG pO2 ABG HCO3 ABG O2 Saturation ABG Base Excess ABG Hemoglobin ABG Oxyhemoglobin ABG Sodium ABG Potassium ABG Chloride ABG Glucose Oxyhemoglobin Carboxyhemoglobin Sodium Potassium Chloride Carbon Dioxide BUN Creatinine Glucose POC Glucose 113 H 123 H 120 H Hemoglobin A1c Lactic Acid Calcium Phosphorus Magnesium Ferritin Total Bilirubin AST ALT Lactate Dehydrogenase C-Reactive Protein Albumin Triglycerides Arterial Blood Glucose Arterial Blood Ionized Calcium Urine Creatinine Coronavirus (PCR) Crossmatch 02/14/21 02/15/21 02/15/21 Unknown 05:00 05:00 WBC RBC Hgb Hct MCV MCH MCHC RDW Plt Count Lymph % (Auto) Lymph # (Auto) Seg Neutrophils % Seg Neuts % (Manual) Lymphocytes % (Manual) Nucleated RBC % Seg Neutrophils # Seg Neutrophils # Man Lymphocytes # (Manual) Eosinophils # (Manual) INR D-Dimer ABG pH POC ABG pCO2 53.4 H POC ABG pO2 61.8 L ABG pO2 ABG HCO3 ABG O2 Saturation ABG Base Excess ABG Hemoglobin 7.7 L ABG Oxyhemoglobin 88.8 L ABG Sodium ABG Potassium ABG Chloride ABG Glucose 143 H Oxyhemoglobin Carboxyhemoglobin 1.6 H Sodium Potassium Chloride 96.9 L Carbon Dioxide 33 H 31 H BUN 40 H 38 H Creatinine 5.2 H 4.8 H Glucose 152 H 132 H POC Glucose Hemoglobin A1c Lactic Acid Calcium 7.9 L Phosphorus Magnesium Ferritin Total Bilirubin AST ALT Lactate Dehydrogenase C-Reactive Protein Albumin Triglycerides Arterial Blood Glucose 143 H Arterial Blood Ionized Calcium Urine Creatinine Coronavirus (PCR) Crossmatch 02/15/21 02/15/21 02/15/21 05:00 05:27 12:05 WBC RBC 2.30 L Hgb 7.1 L Hct 22.1 L MCV 96 H MCH MCHC RDW 15.7 H Plt Count Lymph % (Auto) 11.0 L Lymph # (Auto) 1.1 L Seg Neutrophils % 83.0 H Seg Neuts % (Manual) Lymphocytes % (Manual) Nucleated RBC % Seg Neutrophils # 8.6 H Seg Neutrophils # Man Lymphocytes # (Manual) Eosinophils # (Manual) INR D-Dimer ABG pH POC ABG pCO2 POC ABG pO2 ABG pO2 ABG HCO3 ABG O2 Saturation ABG Base Excess ABG Hemoglobin ABG Oxyhemoglobin ABG Sodium ABG Potassium ABG Chloride ABG Glucose Oxyhemoglobin Carboxyhemoglobin Sodium Potassium Chloride Carbon Dioxide BUN Creatinine Glucose POC Glucose 133 H 123 H Hemoglobin A1c Lactic Acid Calcium Phosphorus Magnesium Ferritin Total Bilirubin AST ALT Lactate Dehydrogenase C-Reactive Protein Albumin Triglycerides Arterial Blood Glucose Arterial Blood Ionized Calcium Urine Creatinine Coronavirus (PCR) Crossmatch 02/15/21 02/15/21 02/16/21 17:08 23:52 03:44 WBC RBC Hgb Hct MCV MCH MCHC RDW Plt Count Lymph % (Auto) Lymph # (Auto) Seg Neutrophils % Seg Neuts % (Manual) Lymphocytes % (Manual) Nucleated RBC % Seg Neutrophils # Seg Neutrophils # Man Lymphocytes # (Manual) Eosinophils # (Manual) INR D-Dimer ABG pH 7.307 L POC ABG pCO2 59.5 H POC ABG pO2 63.2 L ABG pO2 ABG HCO3 ABG O2 Saturation ABG Base Excess ABG Hemoglobin 9.3 L ABG Oxyhemoglobin ABG Sodium ABG Potassium ABG Chloride ABG Glucose 148 H Oxyhemoglobin Carboxyhemoglobin Sodium Potassium Chloride Carbon Dioxide BUN Creatinine Glucose POC Glucose 129 H 136 H Hemoglobin A1c Lactic Acid Calcium Phosphorus Magnesium Ferritin Total Bilirubin AST ALT Lactate Dehydrogenase C-Reactive Protein Albumin Triglycerides Arterial Blood Glucose 148 H Arterial Blood Ionized Calcium Urine Creatinine Coronavirus (PCR) Crossmatch 02/16/21 02/16/21 02/16/21 05:26 06:00 12:14 WBC RBC Hgb Hct MCV MCH MCHC RDW Plt Count Lymph % (Auto) Lymph # (Auto) Seg Neutrophils % Seg Neuts % (Manual) Lymphocytes % (Manual) Nucleated RBC % Seg Neutrophils # Seg Neutrophils # Man Lymphocytes # (Manual) Eosinophils # (Manual) INR D-Dimer ABG pH POC ABG pCO2 POC ABG pO2 ABG pO2 ABG HCO3 ABG O2 Saturation ABG Base Excess ABG Hemoglobin ABG Oxyhemoglobin ABG Sodium ABG Potassium ABG Chloride ABG Glucose Oxyhemoglobin Carboxyhemoglobin Sodium Potassium Chloride Carbon Dioxide BUN 52 H Creatinine 6.0 H Glucose 138 H POC Glucose 135 H 128 H Hemoglobin A1c Lactic Acid Calcium Phosphorus Magnesium Ferritin Total Bilirubin AST ALT Lactate Dehydrogenase C-Reactive Protein Albumin Triglycerides Arterial Blood Glucose Arterial Blood Ionized Calcium Urine Creatinine Coronavirus (PCR) Crossmatch 02/16/21 02/16/21 02/16/21 17:09 17:09 17:09 WBC RBC Hgb Hct MCV MCH MCHC RDW Plt Count Lymph % (Auto) Lymph # (Auto) Seg Neutrophils % Seg Neuts % (Manual) Lymphocytes % (Manual) Nucleated RBC % Seg Neutrophils # Seg Neutrophils # Man Lymphocytes # (Manual) Eosinophils # (Manual) INR D-Dimer 4256.08 H ABG pH POC ABG pCO2 POC ABG pO2 ABG pO2 ABG HCO3 ABG O2 Saturation ABG Base Excess ABG Hemoglobin ABG Oxyhemoglobin ABG Sodium ABG Potassium ABG Chloride ABG Glucose Oxyhemoglobin Carboxyhemoglobin Sodium Potassium Chloride Carbon Dioxide BUN Creatinine Glucose POC Glucose Hemoglobin A1c Lactic Acid Calcium Phosphorus Magnesium Ferritin 980.6 H Total Bilirubin AST ALT Lactate Dehydrogenase 441 H C-Reactive Protein 20.20 H Albumin Triglycerides Arterial Blood Glucose Arterial Blood Ionized Calcium Urine Creatinine Coronavirus (PCR) Crossmatch 02/16/21 02/16/21 02/16/21 17:25 23:16 Unknown WBC RBC 2.19 L Hgb 7.1 L Hct 21.3 L MCV 98 H MCH 33 H MCHC RDW 16.0 H Plt Count Lymph % (Auto) Lymph # (Auto) Seg Neutrophils % Seg Neuts % (Manual) 85.0 H Lymphocytes % (Manual) 6.0 L Nucleated RBC % 4.0 H Seg Neutrophils # Seg Neutrophils # Man Lymphocytes # (Manual) 0.5 L Eosinophils # (Manual) INR D-Dimer ABG pH POC ABG pCO2 POC ABG pO2 ABG pO2 ABG HCO3 ABG O2 Saturation ABG Base Excess ABG Hemoglobin ABG Oxyhemoglobin ABG Sodium ABG Potassium ABG Chloride ABG Glucose Oxyhemoglobin Carboxyhemoglobin Sodium Potassium Chloride Carbon Dioxide BUN Creatinine Glucose POC Glucose 146 H 150 H Hemoglobin A1c Lactic Acid Calcium Phosphorus Magnesium Ferritin Total Bilirubin AST ALT Lactate Dehydrogenase C-Reactive Protein Albumin Triglycerides Arterial Blood Glucose Arterial Blood Ionized Calcium Urine Creatinine Coronavirus (PCR) Crossmatch 02/17/21 02/17/21 02/17/21 04:00 04:14 04:14 WBC RBC Hgb Hct MCV MCH MCHC RDW Plt Count Lymph % (Auto) Lymph # (Auto) Seg Neutrophils % Seg Neuts % (Manual) Lymphocytes % (Manual) Nucleated RBC % Seg Neutrophils # Seg Neutrophils # Man Lymphocytes # (Manual) Eosinophils # (Manual) INR D-Dimer 3183.35 H ABG pH 7.293 L POC ABG pCO2 59.5 H POC ABG pO2 68.1 L ABG pO2 ABG HCO3 ABG O2 Saturation ABG Base Excess ABG Hemoglobin 7.7 L ABG Oxyhemoglobin ABG Sodium 133.4 L ABG Potassium ABG Chloride ABG Glucose 143 H Oxyhemoglobin Carboxyhemoglobin Sodium 136 L Potassium Chloride 97.3 L Carbon Dioxide BUN 49 H Creatinine 5.3 H Glucose 139 H POC Glucose Hemoglobin A1c Lactic Acid Calcium Phosphorus Magnesium Ferritin Total Bilirubin AST ALT Lactate Dehydrogenase C-Reactive Protein Albumin Triglycerides Arterial Blood Glucose 143 H Arterial Blood Ionized Calcium Urine Creatinine Coronavirus (PCR) Crossmatch 02/17/21 02/17/21 02/17/21 04:14 04:14 04:14 WBC RBC 2.14 L Hgb 6.9 L Hct 21.0 L MCV 98 H MCH MCHC RDW 15.8 H Plt Count Lymph % (Auto) Lymph # (Auto) Seg Neutrophils % Seg Neuts % (Manual) Lymphocytes % (Manual) Nucleated RBC % Seg Neutrophils # Seg Neutrophils # Man Lymphocytes # (Manual) Eosinophils # (Manual) INR D-Dimer ABG pH POC ABG pCO2 POC ABG pO2 ABG pO2 ABG HCO3 ABG O2 Saturation ABG Base Excess ABG Hemoglobin ABG Oxyhemoglobin ABG Sodium ABG Potassium ABG Chloride ABG Glucose Oxyhemoglobin Carboxyhemoglobin Sodium Potassium Chloride Carbon Dioxide BUN Creatinine Glucose POC Glucose Hemoglobin A1c Lactic Acid Calcium Phosphorus Magnesium Ferritin 894.0 H Total Bilirubin AST ALT Lactate Dehydrogenase 399 H C-Reactive Protein 22.10 H Albumin Triglycerides Arterial Blood Glucose Arterial Blood Ionized Calcium Urine Creatinine Coronavirus (PCR) Crossmatch 02/17/21 02/17/21 02/17/21 06:06 07:45 12:25 WBC RBC Hgb 7.6 L Hct 22.8 L MCV MCH MCHC RDW Plt Count Lymph % (Auto) Lymph # (Auto) Seg Neutrophils % Seg Neuts % (Manual) Lymphocytes % (Manual) Nucleated RBC % Seg Neutrophils # Seg Neutrophils # Man Lymphocytes # (Manual) Eosinophils # (Manual) INR D-Dimer ABG pH POC ABG pCO2 POC ABG pO2 ABG pO2 ABG HCO3 ABG O2 Saturation ABG Base Excess ABG Hemoglobin ABG Oxyhemoglobin ABG Sodium ABG Potassium ABG Chloride ABG Glucose Oxyhemoglobin Carboxyhemoglobin Sodium Potassium Chloride Carbon Dioxide BUN Creatinine Glucose POC Glucose 134 H Hemoglobin A1c Lactic Acid Calcium Phosphorus Magnesium Ferritin Total Bilirubin AST ALT Lactate Dehydrogenase C-Reactive Protein Albumin Triglycerides Arterial Blood Glucose Arterial Blood Ionized Calcium Urine Creatinine Coronavirus (PCR) Crossmatch See Detail 02/17/21 02/17/21 02/17/21 12:35 17:56 23:34 WBC RBC Hgb Hct MCV MCH MCHC RDW Plt Count Lymph % (Auto) Lymph # (Auto) Seg Neutrophils % Seg Neuts % (Manual) Lymphocytes % (Manual) Nucleated RBC % Seg Neutrophils # Seg Neutrophils # Man Lymphocytes # (Manual) Eosinophils # (Manual) INR D-Dimer ABG pH POC ABG pCO2 POC ABG pO2 ABG pO2 ABG HCO3 ABG O2 Saturation ABG Base Excess ABG Hemoglobin ABG Oxyhemoglobin ABG Sodium ABG Potassium ABG Chloride ABG Glucose Oxyhemoglobin Carboxyhemoglobin Sodium Potassium Chloride Carbon Dioxide BUN Creatinine Glucose POC Glucose 114 H 128 H 120 H Hemoglobin A1c Lactic Acid Calcium Phosphorus Magnesium Ferritin Total Bilirubin AST ALT Lactate Dehydrogenase C-Reactive Protein Albumin Triglycerides Arterial Blood Glucose Arterial Blood Ionized Calcium Urine Creatinine Coronavirus (PCR) Crossmatch 02/18/21 02/18/21 02/18/21 04:03 04:55 05:02 WBC RBC 2.40 L Hgb 7.5 L Hct 23.1 L MCV 96 H MCH MCHC RDW 16.8 H Plt Count Lymph % (Auto) Lymph # (Auto) Seg Neutrophils % Seg Neuts % (Manual) Lymphocytes % (Manual) Nucleated RBC % Seg Neutrophils # Seg Neutrophils # Man Lymphocytes # (Manual) Eosinophils # (Manual) INR D-Dimer ABG pH 7.219 L POC ABG pCO2 58.7 H POC ABG pO2 64.2 L ABG pO2 ABG HCO3 ABG O2 Saturation ABG Base Excess ABG Hemoglobin ABG Oxyhemoglobin ABG Sodium 130.5 L ABG Potassium ABG Chloride ABG Glucose 147 H Oxyhemoglobin Carboxyhemoglobin Sodium 134 L Potassium Chloride 97.9 L Carbon Dioxide BUN 64 H Creatinine 6.5 H Glucose 135 H POC Glucose Hemoglobin A1c Lactic Acid Calcium 8.0 L Phosphorus Magnesium Ferritin Total Bilirubin AST ALT Lactate Dehydrogenase C-Reactive Protein Albumin Triglycerides Arterial Blood Glucose 147 H Arterial Blood Ionized Calcium Urine Creatinine Coronavirus (PCR) Crossmatch 02/18/21 02/18/21 02/18/21 05:27 10:00 11:51 WBC RBC Hgb Hct MCV MCH MCHC RDW Plt Count Lymph % (Auto) Lymph # (Auto) Seg Neutrophils % Seg Neuts % (Manual) Lymphocytes % (Manual) Nucleated RBC % Seg Neutrophils # Seg Neutrophils # Man Lymphocytes # (Manual) Eosinophils # (Manual) INR D-Dimer ABG pH POC ABG pCO2 POC ABG pO2 ABG pO2 ABG HCO3 ABG O2 Saturation ABG Base Excess ABG Hemoglobin ABG Oxyhemoglobin ABG Sodium ABG Potassium ABG Chloride ABG Glucose Oxyhemoglobin Carboxyhemoglobin Sodium Potassium Chloride Carbon Dioxide BUN Creatinine Glucose POC Glucose 130 H 123 H Hemoglobin A1c Lactic Acid Calcium Phosphorus Magnesium Ferritin Total Bilirubin AST ALT Lactate Dehydrogenase C-Reactive Protein Albumin Triglycerides Arterial Blood Glucose Arterial Blood Ionized Calcium Urine Creatinine Coronavirus (PCR) Positive A Crossmatch 02/18/21 02/18/21 02/19/21 18:10 23:35 05:00 WBC RBC Hgb Hct MCV MCH MCHC RDW Plt Count Lymph % (Auto) Lymph # (Auto) Seg Neutrophils % Seg Neuts % (Manual) Lymphocytes % (Manual) Nucleated RBC % Seg Neutrophils # Seg Neutrophils # Man Lymphocytes # (Manual) Eosinophils # (Manual) INR D-Dimer ABG pH 7.232 L POC ABG pCO2 64.3 H POC ABG pO2 ABG pO2 ABG HCO3 ABG O2 Saturation ABG Base Excess ABG Hemoglobin 8.1 L ABG Oxyhemoglobin ABG Sodium 133.5 L ABG Potassium ABG Chloride ABG Glucose 148 H Oxyhemoglobin Carboxyhemoglobin 1.6 H Sodium Potassium Chloride Carbon Dioxide BUN Creatinine Glucose POC Glucose 123 H 137 H Hemoglobin A1c Lactic Acid Calcium Phosphorus Magnesium Ferritin Total Bilirubin AST ALT Lactate Dehydrogenase C-Reactive Protein Albumin Triglycerides Arterial Blood Glucose 148 H Arterial Blood Ionized Calcium Urine Creatinine Coronavirus (PCR) Crossmatch 02/19/21 02/19/21 02/19/21 05:12 05:45 05:45 WBC RBC Hgb Hct MCV MCH MCHC RDW Plt Count Lymph % (Auto) Lymph # (Auto) Seg Neutrophils % Seg Neuts % (Manual) Lymphocytes % (Manual) Nucleated RBC % Seg Neutrophils # Seg Neutrophils # Man Lymphocytes # (Manual) Eosinophils # (Manual) INR D-Dimer 4840.82 H ABG pH POC ABG pCO2 POC ABG pO2 ABG pO2 ABG HCO3 ABG O2 Saturation ABG Base Excess ABG Hemoglobin ABG Oxyhemoglobin ABG Sodium ABG Potassium ABG Chloride ABG Glucose Oxyhemoglobin Carboxyhemoglobin Sodium 135 L Potassium Chloride 97.8 L Carbon Dioxide BUN 58 H Creatinine 5.6 H Glucose 140 H POC Glucose 134 H Hemoglobin A1c Lactic Acid Calcium Phosphorus Magnesium Ferritin Total Bilirubin AST ALT Lactate Dehydrogenase 345 H C-Reactive Protein 15.20 H Albumin Triglycerides 195 H Arterial Blood Glucose Arterial Blood Ionized Calcium Urine Creatinine Coronavirus (PCR) Crossmatch 04/02/19/21 02/19/21 05:45 12:00 17:48 WBC RBC Hgb Hct MCV MCH MCHC RDW Plt Count Lymph % (Auto) Lymph # (Auto) Seg Neutrophils % Seg Neuts % (Manual) Lymphocytes % (Manual) Nucleated RBC % Seg Neutrophils # Seg Neutrophils # Man Lymphocytes # (Manual) Eosinophils # (Manual) INR D-Dimer ABG pH POC ABG pCO2 POC ABG pO2 ABG pO2 ABG HCO3 ABG O2 Saturation ABG Base Excess ABG Hemoglobin ABG Oxyhemoglobin ABG Sodium ABG Potassium ABG Chloride ABG Glucose Oxyhemoglobin Carboxyhemoglobin Sodium Potassium Chloride Carbon Dioxide BUN Creatinine Glucose POC Glucose 122 H 119 H Hemoglobin A1c Lactic Acid Calcium Phosphorus Magnesium Ferritin 951.8 H Total Bilirubin AST ALT Lactate Dehydrogenase C-Reactive Protein Albumin Triglycerides Arterial Blood Glucose Arterial Blood Ionized Calcium Urine Creatinine Coronavirus (PCR) Crossmatch 02/20/21 02/20/21 02/20/21 03:20 04:00 11:48 WBC RBC Hgb Hct MCV MCH MCHC RDW Plt Count Lymph % (Auto) Lymph # (Auto) Seg Neutrophils % Seg Neuts % (Manual) Lymphocytes % (Manual) Nucleated RBC % Seg Neutrophils # Seg Neutrophils # Man Lymphocytes # (Manual) Eosinophils # (Manual) INR D-Dimer ABG pH 7.276 L POC ABG pCO2 57.3 H POC ABG pO2 71.0 L ABG pO2 ABG HCO3 ABG O2 Saturation ABG Base Excess ABG Hemoglobin 8.2 L ABG Oxyhemoglobin 91.9 L ABG Sodium 128.1 L ABG Potassium 4.8 H ABG Chloride ABG Glucose Oxyhemoglobin Carboxyhemoglobin 1.6 H Sodium 136 L Potassium Chloride Carbon Dioxide BUN 69 H Creatinine 6.4 H Glucose POC Glucose 131 H Hemoglobin A1c Lactic Acid Calcium 8.1 L Phosphorus Magnesium Ferritin Total Bilirubin AST ALT Lactate Dehydrogenase C-Reactive Protein Albumin Triglycerides Arterial Blood Glucose Arterial Blood Ionized Calcium 4.5 L Urine Creatinine Coronavirus (PCR) Crossmatch 02/20/21 02/20/21 02/21/21 18:05 23:28 02:53 WBC RBC Hgb Hct MCV MCH MCHC RDW Plt Count Lymph % (Auto) Lymph # (Auto) Seg Neutrophils % Seg Neuts % (Manual) Lymphocytes % (Manual) Nucleated RBC % Seg Neutrophils # Seg Neutrophils # Man Lymphocytes # (Manual) Eosinophils # (Manual) INR D-Dimer ABG pH 7.288 L POC ABG pCO2 52.7 H POC ABG pO2 81.5 L ABG pO2 ABG HCO3 ABG O2 Saturation ABG Base Excess ABG Hemoglobin 8.5 L ABG Oxyhemoglobin 93.6 L ABG Sodium 132.5 L ABG Potassium 4.6 H ABG Chloride ABG Glucose 106 H Oxyhemoglobin Carboxyhemoglobin 1.6 H Sodium Potassium Chloride Carbon Dioxide BUN Creatinine Glucose POC Glucose 114 H 118 H Hemoglobin A1c Lactic Acid Calcium Phosphorus Magnesium Ferritin Total Bilirubin AST ALT Lactate Dehydrogenase C-Reactive Protein Albumin Triglycerides Arterial Blood Glucose 106 H Arterial Blood Ionized Calcium 4.4 L Urine Creatinine Coronavirus (PCR) Crossmatch 02/21/21 02/21/21 02/21/21 05:29 11:42 16:35 WBC RBC Hgb Hct MCV MCH MCHC RDW Plt Count Lymph % (Auto) Lymph # (Auto) Seg Neutrophils % Seg Neuts % (Manual) Lymphocytes % (Manual) Nucleated RBC % Seg Neutrophils # Seg Neutrophils # Man Lymphocytes # (Manual) Eosinophils # (Manual) INR D-Dimer ABG pH POC ABG pCO2 POC ABG pO2 ABG pO2 ABG HCO3 ABG O2 Saturation ABG Base Excess ABG Hemoglobin ABG Oxyhemoglobin ABG Sodium ABG Potassium ABG Chloride ABG Glucose Oxyhemoglobin Carboxyhemoglobin Sodium Potassium 5.6 H Chloride 97.6 L Carbon Dioxide BUN 68 H Creatinine 5.7 H Glucose 160 H POC Glucose 111 H 131 H Hemoglobin A1c Lactic Acid Calcium 8.0 L Phosphorus 7.90 H Magnesium 2.60 H Ferritin Total Bilirubin AST ALT Lactate Dehydrogenase C-Reactive Protein Albumin Triglycerides Arterial Blood Glucose Arterial Blood Ionized Calcium Urine Creatinine Coronavirus (PCR) Crossmatch 02/21/21 02/22/21 02/22/21 17:17 00:04 04:22 WBC RBC Hgb Hct MCV MCH MCHC RDW Plt Count Lymph % (Auto) Lymph # (Auto) Seg Neutrophils % Seg Neuts % (Manual) Lymphocytes % (Manual) Nucleated RBC % Seg Neutrophils # Seg Neutrophils # Man Lymphocytes # (Manual) Eosinophils # (Manual) INR D-Dimer ABG pH 7.250 L POC ABG pCO2 60.1 H POC ABG pO2 57.6 L ABG pO2 ABG HCO3 ABG O2 Saturation ABG Base Excess ABG Hemoglobin 8.8 L ABG Oxyhemoglobin 87.0 L ABG Sodium 133.4 L ABG Potassium 5.1 H ABG Chloride ABG Glucose 124 H Oxyhemoglobin Carboxyhemoglobin Sodium Potassium Chloride Carbon Dioxide BUN Creatinine Glucose POC Glucose 135 H 121 H Hemoglobin A1c Lactic Acid Calcium Phosphorus Magnesium Ferritin Total Bilirubin AST ALT Lactate Dehydrogenase C-Reactive Protein Albumin Triglycerides Arterial Blood Glucose 124 H Arterial Blood Ionized Calcium Urine Creatinine Coronavirus (PCR) Crossmatch 02/22/21 05:33 WBC RBC Hgb Hct MCV MCH MCHC RDW Plt Count Lymph % (Auto) Lymph # (Auto) Seg Neutrophils % Seg Neuts % (Manual) Lymphocytes % (Manual) Nucleated RBC % Seg Neutrophils # Seg Neutrophils # Man Lymphocytes # (Manual) Eosinophils # (Manual) INR D-Dimer ABG pH POC ABG pCO2 POC ABG pO2 ABG pO2 ABG HCO3 ABG O2 Saturation ABG Base Excess ABG Hemoglobin ABG Oxyhemoglobin ABG Sodium ABG Potassium ABG Chloride ABG Glucose Oxyhemoglobin Carboxyhemoglobin Sodium Potassium Chloride Carbon Dioxide BUN Creatinine Glucose POC Glucose 114 H Hemoglobin A1c Lactic Acid Calcium Phosphorus Magnesium Ferritin Total Bilirubin AST ALT Lactate Dehydrogenase C-Reactive Protein Albumin Triglycerides Arterial Blood Glucose Arterial Blood Ionized Calcium Urine Creatinine Coronavirus (PCR) Crossmatch
[2021-02-22] MEDS: NORepinephrine/NS 4 MG-250 ML 4 MG/250 ML BAG IV SCH (10:45)
[2021-02-22 10:50] LABS: Hematocrit 22.7 % (35.5-45.6); Hemoglobin 7.5 gm/dl (11.8-15.2); Mean Corpuscular HGB Conc 33 % (32-34); Mean Corpuscular Volume 96 fl (84-94); Platelet Count 346 K/mm3 (140-440); Red Blood Count 2.35 M/mm3 (3.65-5.03)
[2021-02-22 11:11] LABS: Calcium 8.3 mg/dL (8.4-10.2)
[2021-02-22 12:14] LABS: Total Cells Counted 100
[2021-02-22 12:16] LABS: Macrocytosis Rare; Platelet Estimate Consistent w Auto
[2021-02-22] MEDS ORDERED: SODIUM POLYSTYRENE 15 GM/60 ML ORAL LIQD PO ONE (13:42)
[2021-02-22] MEDS ORDERED: SODIUM CHLORIDE 0.9% 100 ML IV PRN (13:43)
--- NOTE | 2021-02-22 13:44 | Progress Note ---
Assessment and Plan Acute Hypoxic respiratory failure COVID-19 PNA Severe sepsis with septic shock Acute kidney injury secondary to ATN Hyperkalemia Hypernatremia DM2 on insulin Plan: s/p HD yesterday, no HD today. Kayxelate ordered for K of 5.4 Assess need for HD on daily basis Initiated on HD on 02/03/21 s/p Right IJ Trialysis dialysis catheter placement by Dr Reddy Strict I&O Renally dose meds Subjective Date of service: 02/22/21 Principal diagnosis: DEISI Interval history: Intubated. Objective - Exam Narrative Exam: GE:Intubated HEENT:Limited due to Covid Neck:Limited due to Covid Chest:On Vent CVS:Limited due to Covid Abd:Limited due to Covid Neuro:Sedated - Vital Signs Vital signs: Vital Signs - 12hr 02/22/21 02/22/21 02/22/21 01:45 02:00 02:15 Temperature Pulse Rate 113 H 113 H 113 H Pulse Rate [ From Monitor] Respiratory 36 H 38 H 37 H Rate Blood Pressure 113/52 113/55 108/54 O2 Sat by Pulse 94 94 93 Oximetry 02/22/21 02/22/21 02/22/21 02:30 02:45 03:00 Temperature Pulse Rate 113 H 113 H 113 H Pulse Rate [ From Monitor] Respiratory 40 H 39 H 38 H Rate Blood Pressure 118/55 113/54 109/56 O2 Sat by Pulse 94 94 94 Oximetry 02/22/21 02/22/21 02/22/21 03:15 03:30 03:45 Temperature Pulse Rate 113 H 113 H 112 H Pulse Rate [ From Monitor] Respiratory 41 H 39 H 38 H Rate Blood Pressure 118/64 118/61 104/62 O2 Sat by Pulse 96 95 95 Oximetry 02/22/21 02/22/21 02/22/21 03:50 04:00 04:15 Temperature 98.4 F Pulse Rate 112 H 112 H Pulse Rate [ 112 H From Monitor] Respiratory 36 H 39 H Rate Blood Pressure 114/64 114/64 O2 Sat by Pulse 96 98 Oximetry 02/22/21 02/22/21 02/22/21 04:30 04:45 05:00 Temperature Pulse Rate 112 H 111 H 110 H Pulse Rate [ From Monitor] Respiratory 33 H 28 H 10 L Rate Blood Pressure 124/76 107/62 110/62 O2 Sat by Pulse 100 96 96 Oximetry 02/22/21 02/22/21 02/22/21 05:15 05:30 05:31 Temperature Pulse Rate 110 H 111 H 110 H Pulse Rate [ From Monitor] Respiratory 9 L 39 H Rate Blood Pressure 110/61 118/70 O2 Sat by Pulse 95 96 96 Oximetry 02/22/21 02/22/21 02/22/21 05:45 06:00 06:15 Temperature Pulse Rate 110 H 110 H 110 H Pulse Rate [ From Monitor] Respiratory 38 H 37 H 39 H Rate Blood Pressure 115/73 118/71 115/71 O2 Sat by Pulse 96 96 95 Oximetry 02/22/21 02/22/21 02/22/21 06:30 06:45 07:00 Temperature Pulse Rate 110 H 110 H 110 H Pulse Rate [ From Monitor] Respiratory 37 H 39 H 39 H Rate Blood Pressure 121/68 113/69 117/72 O2 Sat by Pulse 95 95 96 Oximetry 02/22/21 02/22/21 08:00 12:00 Temperature 100.0 F H Pulse Rate 107 H 110 H Pulse Rate [ From Monitor] Respiratory Rate Blood Pressure 134/74 131/66 O2 Sat by Pulse 98 96 Oximetry - Lab 02/22/21 09:41 02/22/21 09:41 Most recent lab results ABG pH 7.250 (7.320-7.450) L 02/22/21 04:22 ABG pCO2 51.2 mm Hg 02/12/21 04:41 ABG pO2 69.0 mm Hg (80.0-90.0) L 02/12/21 04:41 ABG HCO3 32.5 mmol/L (20.0-26.0) H 02/12/21 04:41 ABG O2 Saturation 88.2 (0-100) 02/22/21 04:22 Calcium 8.3 mg/dL (8.4-10.2) L 02/22/21 09:41 Phosphorus 7.90 mg/dL (2.5-4.5) H 02/21/21 16:35 Magnesium 2.60 mg/dL (1.7-2.3) H 02/21/21 16:35 Urine Creatinine 53.0 mg/dL (0.1-20.0) H 01/30/21 12:00 Urine Sodium 28 mmol/L 01/22/21 22:39 Medications & Allergies - Medications Allergies/Adverse Reactions: Allergies No Known Allergies Allergy (Unverified 03/12/20 13:41) Home Medications: Home Medications Medication Instructions Recorded Confirmed Last Taken Type Insulin NPH/Regular [Novolin 70/30] 18 unit SUB-Q TIDAC #1 vial 03/12/20 Unknown Rx Syringe-Needle,Insulin,0.5 ml 1 box MC TID #1 box 03/12/20 Unknown Rx [Insulin Syringe/Needle 0.5 ML] Active Medications: Generic Name Dose Route Start Last Admin Trade Name Freq PRN Reason Stop Dose Admin Acetaminophen 650 mg 01/23/21 02:25 02/11/21 18:20 Acetaminophen 650 Mg Rect Supp TN 650 mg Q4H PRN Administration Pain, Mild (1-3) Acetaminophen 650 mg 01/24/21 12:58 02/15/21 18:06 Acetaminophen 325 Mg/10.15 Ml Oral Liqd Unit Dose FEEDTUBE 650 mg Q6H PRN Administration Pain, Mild (1-3) Lipase/Protease/Amylase 1 each 01/26/21 14:25 Lipase 10,500/Protease 25,000/Amylase 43,750 (Units) Dr Cap FEEDTUBE PRN PRN For Clogged Feeding Tube Dextrose 50 ml 01/27/21 07:24 Dextrose 50% In Water (25gm) 50 Ml Syringe IV Q30MIN PRN Hypoglycemia Protocol Fentanyl 50 mcg 01/22/21 22:39 02/10/21 13:46 Fentanyl 100 Mcg/2 Ml Inj IV 50 mcg Q10MIN PRN Administration ANALGESIA Heparin Sodium (Porcine) 2,000 unit 02/11/21 09:38 02/21/21 21:25 Heparin 10,000 Units/10 Ml Vial IV 2,000 unit SAGRARIO PRN Administration hemodialysis Heparin Sodium (Porcine) 5,000 unit 02/19/21 14:00 02/22/21 08:47 Heparin 5,000 Unit/1 Ml Vial SUB-Q 5,000 unit Q8HR CECE Administration Hydrophilic Ointment 1 applic 01/22/21 22:39 02/17/21 17:14 Lip Therapy Vaseline TP 1 applic Q2HR PRN Administration Dry Lips Fentanyl Citrate 2,000 mcg in 100 mls @ 6.124 mls/hr 01/22/21 23:00 02/21/21 16:00 Fentanyl Drip Premix IV 0 mcg/kg/hr TITR CECE 0 mls/hr Titration Protocol 1 MCG/KG/HR Propofol 1,000 mg in 100 mls @ 3.674 mls/hr 01/22/21 23:45 02/21/21 08:30 Diprivan 10 Mg/Ml IV 0 mcg/kg/min TITR CECE 0 mls/hr Titration Protocol 5 MCG/KG/MIN Norepinephrine 4 mg in 250 mls @ 7.5 mls/hr 01/28/21 14:00 02/22/21 10:45 Levophed Drip 4 Mg/Ns 250 Ml IV 4 mcg/min TITR CECE 15 mls/hr Administration Protocol 2 MCG/MIN Dexmedetomidine HCl 1,000 mcg/ 260 mls @ 6.368 mls/hr 01/30/21 20:00 02/21/21 12:23 Sodium Chloride IV Infused TITRATE CECE Titration Protocol 0.2 MCG/KG/HR Sodium Chloride 100 mls @ 999 mls/hr 02/15/21 16:45 Nacl 0.9% IV S[place]IO PRN Hypotension Lansoprazole 30 mg 02/18/21 10:00 02/22/21 09:02 Lansoprazole 30 Mg Solutab FEEDTUBE 30 mg QDAY CECE Administration Multi-Ingred Cream/Lotion/Oil/Oint 1 applic 01/22/21 22:39 02/01/21 09:33 Mineral Oil/Petrolatum, White Ophth Oint 3.5 Gm OU 1 applic Q4HR PRN Administration Dry Eye(s) Ondansetron HCl 4 mg 01/23/21 02:17 02/21/21 16:33 Ondansetron 4 Mg/2 Ml Inj IV 4 mg Q8H PRN Administration Nausea And Vomiting Senna/Docusate Sodium 2 tab 02/17/21 11:00 02/22/21 08:47 Sennosides/Docusate Sodium 8.6/50 Mg Tab PO 2 tab TID CECE Administration Simple Syrup 15 ml 01/26/21 14:25 02/21/21 21:24 Simple Syrup 15 Ml FEEDTUBE 15 ml PRN PRN Administration Hypoglycemia Simple Syrup 30 ml 01/26/21 14:25 Simple Syrup 15 Ml FEEDTUBE PRN PRN Hypoglycemia Sodium Bicarbonate 325 mg 01/26/21 14:25 Sodium Bicarbonate 325 Mg Tab FEEDTUBE PRN PRN For Clogged Feeding Tube Sodium Polystyrene Sulfonate 60 gm 02/22/21 13:42 Sodium Polystyrene 15 Gm/60 Ml Oral Liqd PO 02/22/21 13:43 ONCE ONE
--- NOTE | 2021-02-22 14:16 | Progress Note ---
Assessment and Plan Sepsis-resolved patient now on trach. Initiate placement. COVID-19 pneumonia Coag-neg Staph bacteremia Acute hypoxic respiratory failure-status post tracheostomy. Can plan discharge more effectively. Acute kidney injury, HD initiated 4/tolerated hemodialysis well. Anemia Hyponatremia Hypochloremia Diabetes mellitus Hypertension Hyperlipidemia Chronic renal insufficiency Elevated D-dimer Ectopy-causing some hypotension will initiate vasopressin. Wean as tolerated. -CCM, nephrology, infectious disease, GI consulted, appreciate recommendations -s/p Antibiotic therapy, remdesivir -COVID-19 PCR positive, Pneumonia on CXR -Steroid therapy -Mechanical ventilation, wean as tolerated -VAP bundle -HD per nephrology -S/p 4 units PRBC during stay -Trend BMP, CBC, COVID-19 inflammatory markers -Bilateral lower extremity and upper extremity Doppler ultrasound negative for DVT/SVT -SSI and Long-acting insulin -Accu-Cheks every 6 while on tube feedings -Hold home antihypertensive regimen for now as he is still needing vasopressor support -Blood pressure monitoring per protocol -S/p NaHCO3 gtt -02/17 CT head showed no acute intracranial abnormality, paranasal sinus disease -Bowel regimen DVT/GI prophylaxis: SCDs to bilateral lower extremities while in bed, PPI, heparin subq Dispo: ICU The high probability of a clinically significant, sudden or life threatening deterioration of the [multi] system(s) required my full and direct attention, intervention and personal management. The aggregate critical care time was [30] minutes. This time is in addition to time spent performing reported procedures but includes the following: [x] Data Review and interpretation [x] Patient assessment and monitoring of vital signs [x] Documentation [x] Medication orders and management Subjective Date of service: 02/22/21 Principal diagnosis: DEISI Interval history: This is a 60-year-old male with diabetes mellitus, hypertension, hyperlipidemia, chronic renal insufficiency presents to the emergency department on 01/23 with shortness of breath, fevers chills, loss of smell and taste and body aches for the past 3 days via EMS. Per EMS patient's oxygen saturation on room air was 50% and after being placed on nonrebreather it increased 75%. Upon arrival to the emergency department patient was being bagged by EMS. In the emergency room patient was intubated due to severe hypoxia, increased work of breathing and lethargy. Patient was sedated on propofol and fentanyl. Patient presented with fever, tachycardia, tachypnea and acute hypoxic respiratory failure with PNA on CXR meeting Sepsis criteria. Lab work in the emergency department revealed hyponatremia, hypokalemia, hypochloremia, elevated CR/BUN and CXR showed bilateral pneumonia. Patient was admitted to the hospital service as a COVID-19 PUI with consults to infectious disease, nephrology and critical care medicine. 01/24/2021: Patient is intubated and sedated, patient is positive for COVID-19 infection. ID was consulted and put on dexamethasone and remdesivir. Patient has DEISI and nephrology is following. Creatinine stable, patient is urinating. Discussed with nephrology and he is okay with remdesivir. Pulmonary critical care is following for his vent setting. PEEP of 8 and FiO2 of 85%. Patient was alert and off sedatives. 01/25/2021; patient is intubated and on mechanical ventilation. Continue with treatment of Covid. Nephrology and ID is following. Pulmonary is following for vent management 01/26: Remains on mechanical ventilation and [facility] increased his PEEP. [facility] has ordered Precedex for sedation. Possibly need to prone this p.m. No acute e vents reported overnight. This morning his D-dimer is greater than 10,000 and we have started him on Lovenox 120 mg daily. Nutrition has been consulted for initiation of tube feedings. Patient remains sedated on propofol 40 and fentanyl for the time my examination this morning. 01/27: Continue Lovenox, remdesivir and empiric antibiotics. Patient had a T-max of 101 overnight. The time of examination patient is on CMV 500/18/14/0.61. Kidney function slightly worsened. Sedated on fentanyl ground-level fall and Precedex. Nephrology has increased IV fluids to 100 ml/hr. Continue to trend BMP and CBC. Sedation vacation attempt by RN this AM. 01/28: Patient completed antibiotics today [facility] will paralyze patient and increase sedation. PICC line ordered for possible vasopressor therapy need. Patient's D-dimer remains greater than 10,000 and he still has hyperchloremia. Patient's kidney function has improved today. May need to prone the patient if no improvement in oxygenation is noted in the next 24 hours. The time of my examination patient is sedated with propofol, fentanyl and Precedex and is on assist control 500/18/16/0.80 hypoxic on ABG on 60% FiO2. 01/29: Patient was started on Nimbex yesterday and his ABG this morning showed respiratory acidosis with hypercapnia and his respiratory rate was increased. We will obtain a repeat ABG this afternoon. This morning patient is hypernatremic, hyperkalemic and hyperchloremic. His potassium has been corrected with the management and will obtain repeat BMP tomorrow. His kidney functions have remained stable and we will await nephrology's input. No acute events reported overnight. This morning the time my examination patient sedated with propofol, Precedex and fentanyl and paralyzed with Nimbex. He is on assist control 500/24/16 0.80. 01/30: This morning patient is hypokalemic again and was given Kayexalate. Patient has hypernatremia and hyper chloremia and his renal function is slightly worse after receiving Lasix yesterday. His D-dimer remains greater than 10,000 and he is still on a paralytic. Patient is sedated on Precedex, fentanyl, propofol. Mechanical ventilation settings seven-point /61/28. [facility] has decided to continue paralytics for 48 more hours and will attempt proning the patient. Increased free water flushes 300 cc every 4 hours. Patient states has restarted his antibiotics cefepime and vancomycin and recultured. 01/31/21 Hyperkalemia, Treated 02/01/21 Hyperkalemia, Treated 02/02: Patient's kidney function continues to worsen and a stat BMP this morning shows BUN/creatinine 20/6.1 and he remains hypocalcemic and hypernatremic, hypokalemic and hypochloremic. Patient received 2 g of calcium gluconate and Kayexalate and his repeat potassium was 4.3 this afternoon. He remains antibioti c therapy and steroids. Nephrology has placed the patient on bicarb drip given metabolic acidosis and has decided to hold off hemodialysis till tomorrow.The time my examination patient is sedated on fentanyl, Precedex and on assist control 500/20/12/0.70. s/p paralytic. 02/03: Today patient's ABG shows respiratory acidosis however it is improving, hypernatremia, hyperchloremia, metabolic acidosis on BMP, worsening kidney function BUN/creatinine 130/9.2 with hyperphosphatemia. Patient received a Vas- Cath to his right IJ for initiation of dialysis. At the time of my examination patient remains sedated on fentanyl, propofol and Precedex with vasopressor support with Levophed at 2. 02/04: At the time of examination patient was on assist control tidal volume 500, rate 40, PEEP of 12, FiO2 85%. Patient had a T-max of 100.9 and infectious disease has stopped his vancomycin given negative MRSA. This afternoon patient respiked his temperature and was pancultured again. Patient was started on hemodialysis yesterday and will receive HD again today. Patient is sedated on Precedex, propofol, fentanyl and remains on Levophed. He is on assist control tidal volume 500, rate of 30, PEEP of 12, FiO2 of 85%. Patient still has some respiratory acidosis however his hypernatremia and hyperchloremia have improved and his metabolic acidosis has resolved. Patient will receive hemodialysis today 02/05: Patient continues to have low-grade fever temp this morning time examination he was on assist control tidal volume 500, and sedated on propofol/fentanyl/Precedex and is on Levophed. Hemodialysis per nephrology. Antibiotics per ID. Patient's blood culture from 02/04 grew gram-positive cocci in clusters in 1/2 bottles and he was started on vancomycin. 02/06: Patients ABG showed respiratory acidosis and the tracings were changed however a repeat ABG showed showed acidosis.[facility] will start a bicarb drip after giving 2 amps of bicarb push. Yesterday patient blood cultures grew gram- positive cocci and he was started on vancomycin. At the time my examination patient was on assist control tidal volume 550, rate 34, PEEP 16, FiO2 90% and sedated on fentanyl, Precedex, propofol elevated pressure support with Levophed. Bilateral lower extremity Doppler ultrasounds done yesterday showed no ev idence of DVT/SVT. 02/07/2021; patient is still on the vent with PEEP of 16 and FiO2 of 90%, sedated with fentanyl Precedex and propofol. Patient still requiring Levophed. Patient was sedated yesterday and was given bicarb push. Blood culture grew gram-positive cocci in clusters and he is on vancomycin, will follow identification. 02/08/2021;patient is still on the vent with PEEP of 16 and FiO2 of 90%, sedated with fentanyl Precedex and propofol. Patient still requiring Levophed. Patient was sedated yesterday and was given bicarb push. Blood culture grew gram- positive cocci in clusters and he is on vancomycin, will follow identification. Patient is currently on dialysis. Patient is anemic transfuse if hemoglobin is below 7. 12: This morning patient has slight hypokalemia, hypochorlemia, hyponatremia and metabolic alkalosis. [facility] will continue bicarb gtt given that the patient d oes not have HD access at this time. We will replete the potassium and recheck BMP in the AM. We will type and cross in anticipation of PRBC transfusion. This morning he is sedated on Ativan, fentayl, and precedex. Will obtain a triglyceride level today in hopes to resume propofol. Patient is alkalotic and BMP however we will continue with bicarb drip per [facility] given that the patient does not have any access for hemodialysis. Anticipate replacing hemodialysis catheter tomorrow or Tuesday. The time my examination he is on AC TV 550, Rate 34, PeeP 16, FiO2 .65. 02/10: A.m. labs still pending, [facility] plans to replace HD catheter tomorrow as the patient is still febrile however his fever curve is trending down, remains on a bicarb drip and on vancomycin. Today at the time my examination patient was sedated on Precedex, Ativan and fentanyl and he is on assist control tidal 11/04/1951, rate 34, PEEP 16, FiO2 65%. Overnight patient was hypotensive and received 1 dose of midodrine. 02/11: Patient is still having low-grade temperatures that we will obtain a bilateral lower upper extremity venous Doppler ultrasound given that his repeat cultures have been negative so far. Patient received a Vas-Cath today for hemodialysis. The time examination patient is on assist control tidal volume 5 50, rate of 34, PEEP of 16 and FiO2 of 75%. Patient was hypokalemic and anemic yesterday which were both repleted with potassium and 1 unit PRBC. 02/12: 02/12: Patient had a 12-second run of V. tach today, his potassium and magnesium were low which was repleted. Renal adjusted potassium bath. We will obtain a triglyceride level in hopes to restarting to prevent as needed. This morning at the time my examination patient was sedated on fentanyl, Ativan and Precedex and remained on a bicarb drip. He was on assist control tidal volume 550, rate 34, PEEP 16, FiO2 85%. We will obtain a occult stool given no evident source of bleeding and need for transfusion. Anemia possibly due to hemodialy sis. 02/13: Patient's T-max was 100.7, remains on fentanyl, Ativan, Precedex and bicarb drip this morning at some examination on assist control tidal volume 550, rate 34, PEEP 16 and FiO2 85%. On the labs this morning is slightly hypokalemic and remains metabolic alkalotic on BMP. His occult was positive. His Lovenox and consult GI. Patient received hemodialysis today. 02/14: cont PPI, GI recommended to scope now, monitor clinically, tolerating TF, remains intubated. Hb 6.9 today - transfuse another unit. very poor prognosis. 02/15: H&H appears to be stable following 1 unit of transfusion yesterday. Continue to hold heparin and aspirin products. Continue to monitor clinically. Poor prognosis. Wean off from vent as tolerated. 02/16: Infectious disease has signed off, his Ativan drip was discontinued and to prevent drip will be started when patient needs it. T-max 100.6 yesterday afternoon. He received hemodialysis today and at the time my examination was still on mechanical ventilation assist control tidal volume 550, rate 34, PEEP 16 on 70% FiO2. Patient was sedated on fentanyl dexamethasone and Ativan. No acute events reported overnight. 02/17: This morning patient was scheduled to get 2 units PRBC however his repeat H/H after 1 unit PRBC was 7.6/22.8 and the width of the second unit PRBC. This morning patient was sedated on fentanyl, propofol, Precedex and on assist control tolerated by 50, rate 34, PEEP of 16, FiO2 35%. Wound care was consulted today for his upper lip wound. Nephrology continues to withhold dialysis. No acute events reported overnight. Dr. Adkins was unable to contact family for updates. 02/18: Family updated by Dr. Adkins and Dr. Reddy. Patient had a hemodialysis today. The time my examination patient was on assist control tidal volume 550, rate 34, PEEP 16 and FiO2 35%. Overnight patient had a CT head and he was placed on 3% FiO2 and took "a long time to recover" per RN report. 02/19: Patient's D-dimer is trending up therefore he was started on prophylactic anticoagulation, no bowel movement for several days so he was started on mag citrate today. The time examination patient is sedated on Precedex 1.2, fentanyl 3, propofol 20 on assist control tidal volume 550, rate 34, PEEP 16, 80% FiO2 and on his ABG his PaO2 is 106. RT will try to wean as tolerated. Repeat COVID-19 PCR today was positive.Dr. Adkins updated the family today. 02/20: Patient received hemodialysis today. In the time my examination patient was sedated on Precedex, fentanyl, propofol and on assist control tidal line 550, rate 34, PEEP of 16 and 75% FiO2. Patient had a bowel movement yesterday. 02/21 no new concerns at this time afebrile Hospital course remains uncomplicated. 02/22. Hospital course complicated by an episode of ectopy over the p.m. Patient required Levophed for blood pressure control. Remains intubated sedated . Tolerated hemodialysis yesterday. Objective - Constitutional Vitals: Vital Signs - 12hr 02/22/21 02/22/21 02/22/21 02:15 02:30 02:45 Temperature Pulse Rate 113 H 113 H 113 H Pulse Rate [ From Monitor] Respiratory 37 H 40 H 39 H Rate Blood Pressure 108/54 118/55 113/54 O2 Sat by Pulse 93 94 94 Oximetry 02/22/21 02/22/21 02/22/21 03:00 03:15 03:30 Temperature Pulse Rate 113 H 113 H 113 H Pulse Rate [ From Monitor] Respiratory 38 H 41 H 39 H Rate Blood Pressure 109/56 118/64 118/61 O2 Sat by Pulse 94 96 95 Oximetry 02/22/21 02/22/21 02/22/21 03:45 03:50 04:00 Temperature 98.4 F Pulse Rate 112 H 112 H Pulse Rate [ 112 H From Monitor] Respiratory 38 H 36 H Rate Blood Pressure 104/62 114/64 O2 Sat by Pulse 95 96 Oximetry 02/22/21 02/22/21 02/22/21 04:15 04:30 04:45 Temperature Pulse Rate 112 H 112 H 111 H Pulse Rate [ From Monitor] Respiratory 39 H 33 H 28 H Rate Blood Pressure 114/64 124/76 107/62 O2 Sat by Pulse 98 100 96 Oximetry 02/22/21 02/22/21 02/22/21 05:00 05:15 05:30 Temperature Pulse Rate 110 H 110 H 111 H Pulse Rate [ From Monitor] Respiratory 10 L 9 L 39 H Rate Blood Pressure 110/62 110/61 118/70 O2 Sat by Pulse 96 95 96 Oximetry 02/22/21 02/22/21 02/22/21 05:31 05:45 06:00 Temperature Pulse Rate 110 H 110 H 110 H Pulse Rate [ From Monitor] Respiratory 38 H 37 H Rate Blood Pressure 115/73 118/71 O2 Sat by Pulse 96 96 96 Oximetry 02/22/21 02/22/21 02/22/21 06:15 06:30 06:45 Temperature Pulse Rate 110 H 110 H 110 H Pulse Rate [ From Monitor] Respiratory 39 H 37 H 39 H Rate Blood Pressure 115/71 121/68 113/69 O2 Sat by Pulse 95 95 95 Oximetry 02/22/21 02/22/21 02/22/21 07:00 08:00 12:00 Temperature 100.0 F H Pulse Rate 110 H 107 H 110 H Pulse Rate [ From Monitor] Respiratory 39 H Rate Blood Pressure 117/72 134/74 131/66 O2 Sat by Pulse 96 98 96 Oximetry General appearance: Present: no acute distress - Respiratory Respiratory: right: diminished (Somewhat coarse breath sounds) - Cardiovascular Rhythm: regular Extremity abnormal: edema - Gastrointestinal General gastrointestinal: Present: non-tender, non-distended, hypoactive bowel sounds - Neurologic Neurologic: other (Intubated unresponsive) - Labs CBC & Chem 7: 02/22/21 09:41 02/22/21 09:41 Labs: Abnormal lab results 02/21/21 02/21/21 02/21/21 Range/Units 11:42 16:35 17:17 WBC (4.5-11.0) K/mm3 RBC (3.65-5.03) M/mm3 Hgb (11.8-15.2) gm/dl Hct (35.5-45.6) % MCV (84-94) fl RDW (13.2-15.2) % Seg Neuts % (Manual) (40.0-70.0) % Lymphocytes % (Manual) (13.4-35.0) % Nucleated RBC % (0.0-0.9) % Seg Neutrophils # Man (1.8-7.7) K/mm3 Lymphocytes # (Manual) (1.2-5.4) K/mm3 ABG pH (7.320-7.450) POC ABG pCO2 (32.0-48.0) mmHg POC ABG pO2 (83-108) mmHg ABG Hemoglobin (12.0-17.5) ABG Oxyhemoglobin (94-98) ABG Sodium (136.0-145.0) mmol/L ABG Potassium (3.40-4.50) mmol/L ABG Glucose (65-95) mg/dL Potassium 5.6 H (3.6-5.0) mmol/L Chloride 97.6 L (98-107) mmol/L BUN 68 H (9-20) mg/dL Creatinine 5.7 H (0.8-1.3) mg/dL Glucose 160 H (75-100) mg/dL POC Glucose 131 H 135 H (70-105) mg/dL Calcium 8.0 L (8.4-10.2) mg/dL Phosphorus 7.90 H (2.5-4.5) mg/dL Magnesium 2.60 H (1.7-2.3) mg/dL Arterial Blood Glucose (65-95) mg/dL 02/22/21 02/22/21 02/22/21 Range/Units 00:04 04:22 05:33 WBC (4.5-11.0) K/mm3 RBC (3.65-5.03) M/mm3 Hgb (11.8-15.2) gm/dl Hct (35.5-45.6) % MCV (84-94) fl RDW (13.2-15.2) % Seg Neuts % (Manual) (40.0-70.0) % Lymphocytes % (Manual) (13.4-35.0) % Nucleated RBC % (0.0-0.9) % Seg Neutrophils # Man (1.8-7.7) K/mm3 Lymphocytes # (Manual) (1.2-5.4) K/mm3 ABG pH 7.250 L (7.320-7.450) POC ABG pCO2 60.1 H (32.0-48.0) mmHg POC ABG pO2 57.6 L (83-108) mmHg ABG Hemoglobin 8.8 L (12.0-17.5) ABG Oxyhemoglobin 87.0 L (94-98) ABG Sodium 133.4 L (136.0-145.0) mmol/L ABG Potassium 5.1 H (3.40-4.50) mmol/L ABG Glucose 124 H (65-95) mg/dL Potassium (3.6-5.0) mmol/L Chloride (98-107) mmol/L BUN (9-20) mg/dL Creatinine (0.8-1.3) mg/dL Glucose (75-100) mg/dL POC Glucose 121 H 114 H (70-105) mg/dL Calcium (8.4-10.2) mg/dL Phosphorus (2.5-4.5) mg/dL Magnesium (1.7-2.3) mg/dL Arterial Blood Glucose 124 H (65-95) mg/dL 02/22/21 02/22/21 Range/Units 09:41 09:41 WBC 13.2 H (4.5-11.0) K/mm3 RBC 2.35 L (3.65-5.03) M/mm3 Hgb 7.5 L (11.8-15.2) gm/dl Hct 22.7 L (35.5-45.6) % MCV 96 H (84-94) fl RDW 17.0 H (13.2-15.2) % Seg Neuts % (Manual) 93.0 H (40.0-70.0) % Lymphocytes % (Manual) 4.0 L (13.4-35.0) % Nucleated RBC % 1.0 H (0.0-0.9) % Seg Neutrophils # Man 12.3 H (1.8-7.7) K/mm3 Lymphocytes # (Manual) 0.5 L (1.2-5.4) K/mm3 ABG pH (7.320-7.450) POC ABG pCO2 (32.0-48.0) mmHg POC ABG pO2 (83-108) mmHg ABG Hemoglobin (12.0-17.5) ABG Oxyhemoglobin (94-98) ABG Sodium (136.0-145.0) mmol/L ABG Potassium (3.40-4.50) mmol/L ABG Glucose (65-95) mg/dL Potassium 5.4 H (3.6-5.0) mmol/L Chloride (98-107) mmol/L BUN 61 H (9-20) mg/dL Creatinine 5.5 H (0.8-1.3) mg/dL Glucose 117 H (75-100) mg/dL POC Glucose (70-105) mg/dL Calcium 8.3 L (8.4-10.2) mg/dL Phosphorus (2.5-4.5) mg/dL Magnesium (1.7-2.3) mg/dL Arterial Blood Glucose (65-95) mg/dL HEART Score - HEART Score Risk factors: 1-2 risk factors Troponin: < normal limit - Critical Actions Critical Actions: 0-3 pts:0.9-1.7%risk of adverse cardiac event.Candidate for discharge
[2021-02-23 04:41] LABS: ABG Base Excess -1.2 mmol/L (-2.0-3.0); ABG HCO3 26.6 mmol/L (20.0-26.0); ABG Methemoglobin 0.7 % (0.0-1.5); ABG Oxygen Saturation 97.7 % (95.0-99.0); ABG PCO2 62.7 mm Hg; ABG PH 7.246 pH Units (7.350-7.450); ABG PO2 119.4 mm Hg (80.0-90.0)
[2021-02-23 06:53] LABS: Calcium 8.3 mg/dL (8.4-10.2)
[2021-02-23] MEDS: HEPARIN 5,000 UNIT/1 ML VIAL SUB-Q SCH ×3 (07:28→21:08)
[2021-02-23] MEDS: SENNOSIDES/DOCUSATE SODIUM 8.6/50 MG TAB PO SCH ×3 (08:43→20:20)
[2021-02-23] MEDS: LANSOPRAZOLE 30 MG SOLUTAB FEEDTUBE SCH (09:56)
--- NOTE | 2021-02-23 11:50 | Progress Note ---
Assessment and Plan Assessment: Acute Hypoxic respiratory failure COVID-19 PNA Severe sepsis with septic shock Acute kidney injury secondary to ATN Hyperkalemia Hypernatremia DM2 on insulin Anemia Plan: Hemodialysis today for UF and clearance Initiated on HD on 02/03/21 S/P Right IJ Trialysis dialysis catheter placement by Dr Reddy Strict I&O's monitoring Renally dose medications Assess dialysis needs daily Monitor for renal recovery Subjective Date of service: 02/23/21 Principal diagnosis: DEISI Interval history: Patient not directly seen or examined due to being with active COVID-19 infection to limit/reduce risk of exposure and or transmission of the disease in this pandemic and due to limited PPE resources. Objective - Vital Signs Vital signs: Vital Signs - 12hr 02/23/21 02/23/21 02/23/21 00:00 00:15 00:30 Temperature Pulse Rate 103 H 103 H 103 H Pulse Rate [ 102 H From Monitor] Respiratory 34 H 37 H 39 H Rate Blood Pressure 117/62 121/58 113/66 O2 Sat by Pulse 97 96 96 Oximetry O2 Sat by Pulse Oximetry [ Anterior Bilateral Throughout] 02/23/21 02/23/21 02/23/21 00:45 01:00 01:15 Temperature Pulse Rate 102 H 102 H 102 H Pulse Rate [ From Monitor] Respiratory 32 H 39 H 35 H Rate Blood Pressure 118/65 111/70 118/69 O2 Sat by Pulse 97 97 97 Oximetry O2 Sat by Pulse Oximetry [ Anterior Bilateral Throughout] 02/23/21 02/23/21 02/23/21 01:30 01:45 02:00 Temperature Pulse Rate 102 H 102 H 102 H Pulse Rate [ From Monitor] Respiratory 38 H 36 H 38 H Rate Blood Pressure 116/72 121/71 120/68 O2 Sat by Pulse 97 97 97 Oximetry O2 Sat by Pulse Oximetry [ Anterior Bilateral Throughout] 02/23/21 02/23/21 02/23/21 02:15 02:30 02:45 Temperature Pulse Rate 100 H 101 H 102 H Pulse Rate [ From Monitor] Respiratory 35 H 37 H 38 H Rate Blood Pressure 112/66 115/72 118/72 O2 Sat by Pulse 97 97 98 Oximetry O2 Sat by Pulse Oximetry [ Anterior Bilateral Throughout] 02/23/21 02/23/21 02/23/21 03:00 03:15 03:20 Temperature Pulse Rate 102 H 99 H 100 H Pulse Rate [ From Monitor] Respiratory 37 H 24 Rate Blood Pressure 118/70 119/66 118/70 O2 Sat by Pulse 97 98 98 Oximetry O2 Sat by Pulse Oximetry [ Anterior Bilateral Throughout] 02/23/21 02/23/21 02/23/21 03:30 03:45 03:50 Temperature 99.0 F Pulse Rate 102 H 100 H Pulse Rate [ From Monitor] Respiratory 16 34 H Rate Blood Pressure 118/70 127/74 O2 Sat by Pulse 96 Oximetry O2 Sat by Pulse Oximetry [ Anterior Bilateral Throughout] 02/23/21 02/23/21 02/23/21 04:00 04:15 04:30 Temperature Pulse Rate 100 H 100 H 100 H Pulse Rate [ 100 H From Monitor] Respiratory 36 H 35 H 35 H Rate Blood Pressure 128/72 131/73 131/76 O2 Sat by Pulse 98 98 Oximetry O2 Sat by Pulse Oximetry [ Anterior Bilateral Throughout] 02/23/21 02/23/21 02/23/21 04:45 05:00 05:15 Temperature Pulse Rate 99 H 100 H 100 H Pulse Rate [ From Monitor] Respiratory 36 H 34 H 35 H Rate Blood Pressure 129/74 139/78 138/76 O2 Sat by Pulse 95 84 96 Oximetry O2 Sat by Pulse Oximetry [ Anterior Bilateral Throughout] 02/23/21 02/23/21 02/23/21 05:30 05:45 06:00 Temperature Pulse Rate 100 H 101 H 99 H Pulse Rate [ From Monitor] Respiratory 35 H 36 H 35 H Rate Blood Pressure 143/77 145/83 136/73 O2 Sat by Pulse 98 100 95 Oximetry O2 Sat by Pulse Oximetry [ Anterior Bilateral Throughout] 02/23/21 02/23/21 02/23/21 06:15 06:30 06:45 Temperature Pulse Rate 100 H 100 H 102 H Pulse Rate [ From Monitor] Respiratory 35 H 36 H 34 H Rate Blood Pressure 133/76 141/79 137/83 O2 Sat by Pulse 95 90 89 Oximetry O2 Sat by Pulse Oximetry [ Anterior Bilateral Throughout] 02/23/21 02/23/21 02/23/21 07:00 07:15 07:30 Temperature Pulse Rate 102 H 101 H 101 H Pulse Rate [ From Monitor] Respiratory 36 H 34 H 34 H Rate Blood Pressure 147/85 138/75 137/77 O2 Sat by Pulse 99 94 Oximetry O2 Sat by Pulse Oximetry [ Anterior Bilateral Throughout] 02/23/21 02/23/21 02/23/21 07:46 08:00 08:15 Temperature 98.3 F Pulse Rate 100 H 103 H 101 H Pulse Rate [ 100 H From Monitor] Respiratory 34 H 33 H 34 H Rate Blood Pressure 137/77 159/86 145/78 O2 Sat by Pulse 96 96 95 Oximetry O2 Sat by Pulse Oximetry [ Anterior Bilateral Throughout] 02/23/21 02/23/21 02/23/21 08:30 08:45 09:00 Temperature Pulse Rate 102 H 99 H 100 H Pulse Rate [ From Monitor] Respiratory 33 H 33 H 33 H Rate Blood Pressure 148/81 138/76 147/79 O2 Sat by Pulse 90 88 90 Oximetry O2 Sat by Pulse Oximetry [ Anterior Bilateral Throughout] 02/23/21 02/23/21 02/23/21 09:15 09:30 09:43 Temperature 98.5 F Pulse Rate 100 H 100 H 100 H Pulse Rate [ From Monitor] Respiratory 33 H 34 H 35 H Rate Blood Pressure 135/79 141/81 151/86 O2 Sat by Pulse 90 90 Oximetry O2 Sat by Pulse 95 Oximetry [ Anterior Bilateral Throughout] 02/23/21 02/23/21 02/23/21 09:45 09:47 10:00 Temperature Pulse Rate 100 H 100 H 102 H Pulse Rate [ From Monitor] Respiratory 32 H 35 H Rate Blood Pressure 149/80 151/86 159/86 O2 Sat by Pulse 91 89 Oximetry O2 Sat by Pulse Oximetry [ Anterior Bilateral Throughout] 02/23/21 02/23/21 02/23/21 10:15 10:30 10:45 Temperature Pulse Rate 104 H 105 H 107 H Pulse Rate [ From Monitor] Respiratory 37 H 35 H 36 H Rate Blood Pressure 156/88 149/82 153/91 O2 Sat by Pulse 87 91 85 Oximetry O2 Sat by Pulse Oximetry [ Anterior Bilateral Throughout] 02/23/21 02/23/21 02/23/21 11:00 11:15 11:30 Temperature Pulse Rate 106 H 104 H 105 H Pulse Rate [ From Monitor] Respiratory 35 H 33 H 35 H Rate Blood Pressure 137/75 130/76 130/77 O2 Sat by Pulse 88 83 L 85 Oximetry O2 Sat by Pulse Oximetry [ Anterior Bilateral Throughout] 02/23/21 11:45 Temperature Pulse Rate 106 H Pulse Rate [ From Monitor] Respiratory Rate Blood Pressure 128/76 O2 Sat by Pulse Oximetry O2 Sat by Pulse Oximetry [ Anterior Bilateral Throughout] - Lab 02/22/21 09:41 02/23/21 06:20 Most recent lab results ABG pH 7.246 pH Units (7.350-7.450) L 02/23/21 04:00 ABG pCO2 62.7 mm Hg 02/23/21 04:00 ABG pO2 119.4 mm Hg (80.0-90.0) H 02/23/21 04:00 ABG HCO3 26.6 mmol/L (20.0-26.0) H 02/23/21 04:00 ABG O2 Saturation 97.7 % (95.0-99.0) 02/23/21 04:00 Calcium 8.3 mg/dL (8.4-10.2) L 02/23/21 06:20 Phosphorus 7.90 mg/dL (2.5-4.5) H 02/21/21 16:35 Magnesium 2.60 mg/dL (1.7-2.3) H 02/21/21 16:35 Urine Creatinine 53.0 mg/dL (0.1-20.0) H 01/30/21 12:00 Urine Sodium 28 mmol/L 01/22/21 22:39 Medications & Allergies - Medications Allergies/Adverse Reactions: Allergies No Known Allergies Allergy (Unverified 03/12/20 13:41) Home Medications: Home Medications Medication Instructions Recorded Confirmed Last Taken Type Insulin NPH/Regular [Novolin 70/30] 18 unit SUB-Q TIDAC #1 vial 03/12/20 Unknown Rx Syringe-Needle,Insulin,0.5 ml 1 box MC TID #1 box 03/12/20 Unknown Rx [Insulin Syringe/Needle 0.5 ML] Active Medications: Generic Name Dose Route Start Last Admin Trade Name Freq PRN Reason Stop Dose Admin Acetaminophen 650 mg 01/24/21 12:58 02/15/21 18:06 Acetaminophen 325 Mg/10.15 Ml Oral Liqd Unit Dose FEEDTUBE 650 mg Q6H PRN Administration Pain, Mild (1-3) Lipase/Protease/Amylase 1 each 01/26/21 14:25 Lipase 10,500/Protease 25,000/Amylase 43,750 (Units) Dr Cap FEEDTUBE PRN PRN For Clogged Feeding Tube Dextrose 50 ml 01/27/21 07:24 Dextrose 50% In Water (25gm) 50 Ml Syringe IV Q30MIN PRN Hypoglycemia Protocol Fentanyl 50 mcg 01/22/21 22:39 02/10/21 13:46 Fentanyl 100 Mcg/2 Ml Inj IV 50 mcg Q10MIN PRN Administration ANALGESIA Heparin Sodium (Porcine) 2,000 unit 02/11/21 09:38 02/21/21 21:25 Heparin 10,000 Units/10 Ml Vial IV 2,000 unit SAGRARIO PRN Administration hemodialysis Heparin Sodium (Porcine) 5,000 unit 02/19/21 14:00 02/23/21 07:28 Heparin 5,000 Unit/1 Ml Vial SUB-Q Not Given Q8HR CECE Fentanyl Citrate 2,000 mcg in 100 mls @ 6.124 mls/hr 01/22/21 23:00 02/21/21 16:00 Fentanyl Drip Premix IV 0 mcg/kg/hr TITR CECE 0 mls/hr Titration Protocol 1 MCG/KG/HR Propofol 1,000 mg in 100 mls @ 3.674 mls/hr 01/22/21 23:45 02/21/21 08:30 Diprivan 10 Mg/Ml IV 0 mcg/kg/min TITR CECE 0 mls/hr Titration Protocol 5 MCG/KG/MIN Norepinephrine 4 mg in 250 mls @ 7.5 mls/hr 01/28/21 14:00 02/22/21 18:27 Levophed Drip 4 Mg/Ns 250 Ml IV 0 mcg/min TITR CECE 0 mls/hr Titration Protocol 2 MCG/MIN Dexmedetomidine HCl 1,000 mcg/ 260 mls @ 6.368 mls/hr 01/30/21 20:00 02/21/21 12:23 Sodium Chloride IV Infused TITRATE CECE Titration Protocol 0.2 MCG/KG/HR Sodium Chloride 100 mls @ 999 mls/hr 02/22/21 13:43 Nacl 0.9% IV SAGR[place]IO PRN Hypotension Lansoprazole 30 mg 02/18/21 10:00 02/23/21 09:56 Lansoprazole 30 Mg Solutab FEEDTUBE 30 mg QDAY CECE Administration Senna/Docusate Sodium 2 tab 02/17/21 11:00 02/23/21 08:43 Sennosides/Docusate Sodium 8.6/50 Mg Tab PO Not Given TID CECE Simple Syrup 15 ml 01/26/21 14:25 02/21/21 21:24 Simple Syrup 15 Ml FEEDTUBE 15 ml PRN PRN Administration Hypoglycemia Simple Syrup 30 ml 01/26/21 14:25 Simple Syrup 15 Ml FEEDTUBE PRN PRN Hypoglycemia Sodium Bicarbonate 325 mg 01/26/21 14:25 Sodium Bicarbonate 325 Mg Tab FEEDTUBE PRN PRN For Clogged Feeding Tube
--- NOTE | 2021-02-23 12:09 | Progress Note ---
Assessment and Plan 60 y/o male with ARDS secondary most likely to COVID 19 pneumonia. 02/23/21: Despite oxygen numbers looking better, now overall concern shifts somewhat towards mental state. Will continue to monitor for the next several days. However he has been on large amounts of oxygen therapy for a long time and could have some damage to his brain from this. Plan is to update the family tomorrow on current clinical state. His prognosis has been poor and now with mental state prognosis is worsening. HD per renal. Continue to wean FiO2 for s ats >88% 02/22/21: Overall clinical state continues to waxes and wanes. Back up to 80%. Will call family tomorrow to update. Had HD last night, will likely have HD again on Tuesday. Very very guarded prognosis. Will send Triglyceride level anyway given recent change. 02/21/21: Continue to wean FiO2 for sats >88%. Down to 70 now and tolerating. Diprovan is off, nursing working to wean others as well. Can hold on triglycerides now that diprovan is off. Guarded prognosis. 02/20/21: HD today, goal is 3 liters. Continue sedation, did have to increase Diprovan but this is ok. Will need to check levels soon. BM complete. Continue prophylactic anticoagulation. Guarded prognosis. 02/19/21: HD per renal, likely tomorrow. Continue sedation. Has not had a BM so will give full dose of mag citrate today. STarted prophylactic anticoagulation. Wean FiO2 as tolerated. Will call family tomorrow. 02/18/21: HD per renal. continue sedation to help with oxygenation. Overall prognosis remains very guarded to poor. [facility] has been speaking with family so will defer to them. Currently patient is not a candidate for trach given his oxygen and peep requirements. 02/17/21: Fine with cutting back on HD as not really helped with oxygenation. Continue to wean as tolerated for sats >88% and PaO2 >55. Sedation to achieve negative rass scoring. very very guarded to poor prognosis. 02/16/21: HD now. Wean FiO2 for sats> 88%. Agree with stopping ativan and holding on starting diprovan to see if the patient truly needs it. pH holding off bicarb drip goal is >7.2. Very very guarded to poor prognosis. 02/13/21: HD again now. Replace electrolytes per renal. Continue abx therapy per ID. Will get RT to wean FiO2 as not done on yesterday. Will restart diprovan post HD and stop ativan. Check Levels (Triglycerides on Tue or Tuesday). Can stop bicarb drip however must make sure that ABG is checked daily to make sure that pH is good. Very very guarded prognosis. 02/12/21: HD again today. Had a 12 second run of VTACH today as well. Stable. K is low, checking mag levels. Will alert Renal so they can adjust bath as needed. Post HD will start to wean FiO2 again. Unable to prone as patient does not tolerate. Repeat blood cultures negative and first set only showing Coag Negative Staph. Prognosis still remains very very guarded to poor. Will consider restarting Diprovan tomorrow. Patient now intubated for 20 days now but not candidate for trach yet given elevated PEEP and FiO2 levels but did discuss on rounds. 02/11/21: Vascath placed today for HD. Orders already in. Wean FiO2 for sats >88%. Abx per ID. Repeat cultures so far negative. Given persistent fevers, will check upper ext dopplers. Prognosis still remains guarded. 02/10/21: Triglycerides improved but current sedation is adequate so will hold on stopping ativan to add propofol back. Awaiting Labs from this morning. Plan to replace HD catheter tomorrow morning as early as possible. Fever curve is trending down. Continue bicarb drip for now. Prognosis remains guarded. WIll speak with family tomorrow to update. 02/09/21: Repeat Triglycerides today. Follow up repeat blood cultures. Given continued fever will hold on replacing vascath today. If fever free the next 24 hours, can place in the morning or Tuesday morning. Will likely need blood with next HD session. Continue bicarb drip to help manage respiratory as well as metabolic acidosis. Wean FiO2 for sats >88% and PaO2 >55. Overall prognosis remains guarded to poor. 02/08/21: Picc out today. Will repeat culture if patient spikes again today. Plan to replace HD catheter either late tomorrow or Tuesday morning. Continue current level of sedation. Abx therapy per ID. Wean FiO2 as tolerated, doubt will be able to do much until we can resume HD. Guarded prognosis. Replaced potassium. Will need to check in the morning. Will repeat K later this afternoon. 02/07/21: Biggest issue now is that patient's numbers are better with HD but now with bacteremia, concern for line infection. ID is correct in requesting line holiday. Has a picc and an Right IJ Dialysis catheter with 3 ports. Currently getting HD today. Have not seen renal yet. Will pull right IJ line post HD and plan to replace it Tuesday evening or Tuesday. Continue bicarb drip for now and will keep picc as patient has been requiring levophed. If able to be weaned off levophed, will remove picc either tomorrow or Tuesday. Continue Ativan, Precedex and Fent drips, repeat Triglycerides on Tuesday. Very very guarded prognosis. Will remove Black today as well. 02/06/21: Will add bicarb drip at 125/hr. Giving 2 amps of NaHCO3 push now. Will repeat ABG this afternoon, may just ask for Art Line if possible. HD today per renal and I spoke with them about the bicarb drip. Long discussion with Sister, Significant and other and another family member on the phone on yesterday. I tried my best to explain the severity of the clinical state but not sure if they fully understood. The patient is very very ill and history suggests that his outcome will be poor (intubated with covid and renal failure on dialysis). This was expressed with the family. Will continue all supportive measures. Checking triglyceride levels today. 02/05/21: WIll increase PEEP to 16. Can increase pressors if needed for BP control during HD. Follow up cultures. If negative will scan legs and arms again for VTE. Repeat ABG at 1400 today. Will speak with sister and Girlfriend on phone today. 02/04/21: HD again today per renal notes. Likely will need daily HD. New fevers. Will draw blood and urine cultures if able to still make urine.. Repeat CXR. May need to check dopplers if all of those studies are negative. Wean FIO2 as tolerated. Unable to tolerate proning. Guarded to poor prognosis. 02/03/21: HD today per renal. Wean FiO2 as tolerated. No further proning as patient cannot tolerate it, however with volume removal, may consider in the future. Use pressors to keep MAPs 65 and greater for HD purporses so volume can be removed. (IJ was wide open (filled with blood)) with patient sitting up at 45 degrees. Guarded prognosis. 02/02/21: After renal speaks with family, will place vascath today. Agree with bicarb drip but will order some pushes now to help with pH. Overall prognosis is very very guarded to poor now that patient is COVID positive and requiring renal replacement therapy. Mortality is very high in these patients. Continue steroid therapy. Unable to tolerate proning. 01/30/21: Will plan for proning later today. Goal will be at least 12hrs but long is okay. Speaking with pharmacy to see if we can get paralytic for a longer period of time. Regardless will prone. Continue heavy sedation. BP stable. Continue steroids. Very very guarded prognosis. 01/29/21: will increase tidal volume and/or increase respiratory rate. Repeat ABG this afternoon. Continue paralytic and adequate sedation. Continue steroid and remdesivir, follow up any renal recs. Prognosis remains guarded. Wean Fio2 for sats >88% 01/28/21: Increased PEEP to 16. Will paralyze patient today and increase sedation. Ordering picc line for possible vasopressor therapy needs. Continue BID steroids. Renal function is slightly better today with fluids but could be making oxygenation worse. Not able to diurese. Still making urine. Continue Remdesivir. Watch for fever curve. If not improvement in the next 24 hours with paralyzing, will prone tomorrow morning. 01/27/21: Continue PEEP at 14. No weaning until FiO2 is at or below 40-45%. Continue anticoagulation. Getting Remdesivir now. Continue BID steroids. Renal has increased the fluids. Monitor urine output and renal function. Overall prognosis is very very guarded, especially if renal status worsens. 01/26/21: Increase PEEP to 14. Will add Precedex therapy. If patient does not respond to increases in PEEP may need to prone. Will place patient on lovenox and will feed patient. Remdesivir coming. Continue BID steroids. Prognosis is guarded. 01/25/21: Hold on proning today. Continue BID steroids. ABG this AM was adequate. Pending abg tomorrow, may increase PEEP if not able to wean FiO2 any further. Per charting Remdesivir to arrive tomorrow. Guarded prognosis. 01/24/21: Continue BID steroids. No abg done this am but able to wean FiO2. Will obtain ABG in the am. Hold on proning for right now. Renal following, would like to diurese but they are given fluids for deisi. Agree with ID asse ssment and note. Guarded prognosis. 1. Increase steroids to BID given size 2. Check with ID to see if he is a candidate for remdesivir or any other experiemental therapy 3. Hold on proning for right now 4. Renal consulted and giving IVF's currently Guarded prognosis. CCT 31 minutes. Subjective Date of service: 02/23/21 Principal diagnosis: DEISI Interval history: No acute events. Remains off all sedation and is still not awake. PaO2 was 119 on 70% Objective Vital Signs - 12hr 02/23/21 02/23/21 02/23/21 00:15 00:30 00:45 Temperature Pulse Rate 103 H 103 H 102 H Pulse Rate [ From Monitor] Respiratory 37 H 39 H 32 H Rate Blood Pressure 121/58 113/66 118/65 O2 Sat by Pulse 96 96 97 Oximetry O2 Sat by Pulse Oximetry [ Anterior Bilateral Throughout] 02/23/21 02/23/21 02/23/21 01:00 01:15 01:30 Temperature Pulse Rate 102 H 102 H 102 H Pulse Rate [ From Monitor] Respiratory 39 H 35 H 38 H Rate Blood Pressure 111/70 118/69 116/72 O2 Sat by Pulse 97 97 97 Oximetry O2 Sat by Pulse Oximetry [ Anterior Bilateral Throughout] 02/23/21 02/23/21 02/23/21 01:45 02:00 02:15 Temperature Pulse Rate 102 H 102 H 100 H Pulse Rate [ From Monitor] Respiratory 36 H 38 H 35 H Rate Blood Pressure 121/71 120/68 112/66 O2 Sat by Pulse 97 97 97 Oximetry O2 Sat by Pulse Oximetry [ Anterior Bilateral Throughout] 02/23/21 02/23/21 02/23/21 02:30 02:45 03:00 Temperature Pulse Rate 101 H 102 H 102 H Pulse Rate [ From Monitor] Respiratory 37 H 38 H 37 H Rate Blood Pressure 115/72 118/72 118/70 O2 Sat by Pulse 97 98 97 Oximetry O2 Sat by Pulse Oximetry [ Anterior Bilateral Throughout] 02/23/21 02/23/21 02/23/21 03:15 03:20 03:30 Temperature Pulse Rate 99 H 100 H 102 H Pulse Rate [ From Monitor] Respiratory 24 16 Rate Blood Pressure 119/66 118/70 118/70 O2 Sat by Pulse 98 98 Oximetry O2 Sat by Pulse Oximetry [ Anterior Bilateral Throughout] 02/23/21 02/23/21 02/23/21 03:45 03:50 04:00 Temperature 99.0 F Pulse Rate 100 H 100 H Pulse Rate [ 100 H From Monitor] Respiratory 34 H 36 H Rate Blood Pressure 127/74 128/72 O2 Sat by Pulse 96 98 Oximetry O2 Sat by Pulse Oximetry [ Anterior Bilateral Throughout] 02/23/21 02/23/21 02/23/21 04:15 04:30 04:45 Temperature Pulse Rate 100 H 100 H 99 H Pulse Rate [ From Monitor] Respiratory 35 H 35 H 36 H Rate Blood Pressure 131/73 131/76 129/74 O2 Sat by Pulse 98 95 Oximetry O2 Sat by Pulse Oximetry [ Anterior Bilateral Throughout] 02/23/21 02/23/21 02/23/21 05:00 05:15 05:30 Temperature Pulse Rate 100 H 100 H 100 H Pulse Rate [ From Monitor] Respiratory 34 H 35 H 35 H Rate Blood Pressure 139/78 138/76 143/77 O2 Sat by Pulse 84 96 98 Oximetry O2 Sat by Pulse Oximetry [ Anterior Bilateral Throughout] 02/23/21 02/23/21 02/23/21 05:45 06:00 06:15 Temperature Pulse Rate 101 H 99 H 100 H Pulse Rate [ From Monitor] Respiratory 36 H 35 H 35 H Rate Blood Pressure 145/83 136/73 133/76 O2 Sat by Pulse 100 95 95 Oximetry O2 Sat by Pulse Oximetry [ Anterior Bilateral Throughout] 02/23/21 02/23/21 02/23/21 06:30 06:45 07:00 Temperature Pulse Rate 100 H 102 H 102 H Pulse Rate [ From Monitor] Respiratory 36 H 34 H 36 H Rate Blood Pressure 141/79 137/83 147/85 O2 Sat by Pulse 90 89 99 Oximetry O2 Sat by Pulse Oximetry [ Anterior Bilateral Throughout] 02/23/21 02/23/21 02/23/21 07:15 07:30 07:46 Temperature Pulse Rate 101 H 101 H 100 H Pulse Rate [ From Monitor] Respiratory 34 H 34 H 34 H Rate Blood Pressure 138/75 137/77 137/77 O2 Sat by Pulse 94 96 Oximetry O2 Sat by Pulse Oximetry [ Anterior Bilateral Throughout] 02/23/21 02/23/21 02/23/21 08:00 08:15 08:30 Temperature 98.3 F Pulse Rate 103 H 101 H 102 H Pulse Rate [ 100 H From Monitor] Respiratory 33 H 34 H 33 H Rate Blood Pressure 159/86 145/78 148/81 O2 Sat by Pulse 96 95 90 Oximetry O2 Sat by Pulse Oximetry [ Anterior Bilateral Throughout] 02/23/21 02/23/21 02/23/21 08:45 09:00 09:15 Temperature Pulse Rate 99 H 100 H 100 H Pulse Rate [ From Monitor] Respiratory 33 H 33 H 33 H Rate Blood Pressure 138/76 147/79 135/79 O2 Sat by Pulse 88 90 90 Oximetry O2 Sat by Pulse Oximetry [ Anterior Bilateral Throughout] 02/23/21 02/23/21 02/23/21 09:30 09:43 09:45 Temperature 98.5 F Pulse Rate 100 H 100 H 100 H Pulse Rate [ From Monitor] Respiratory 34 H 35 H 32 H Rate Blood Pressure 141/81 151/86 149/80 O2 Sat by Pulse 90 91 Oximetry O2 Sat by Pulse 95 Oximetry [ Anterior Bilateral Throughout] 02/23/21 02/23/21 02/23/21 09:47 10:00 10:15 Temperature Pulse Rate 100 H 102 H 104 H Pulse Rate [ From Monitor] Respiratory 35 H 37 H Rate Blood Pressure 151/86 159/86 156/88 O2 Sat by Pulse 89 87 Oximetry O2 Sat by Pulse Oximetry [ Anterior Bilateral Throughout] 02/23/21 02/23/21 02/23/21 10:30 10:45 11:00 Temperature Pulse Rate 105 H 107 H 106 H Pulse Rate [ From Monitor] Respiratory 35 H 36 H 35 H Rate Blood Pressure 149/82 153/91 137/75 O2 Sat by Pulse 91 85 88 Oximetry O2 Sat by Pulse Oximetry [ Anterior Bilateral Throughout] 02/23/21 02/23/21 02/23/21 11:15 11:30 11:45 Temperature Pulse Rate 104 H 105 H 106 H Pulse Rate [ From Monitor] Respiratory 33 H 35 H Rate Blood Pressure 130/76 130/77 128/76 O2 Sat by Pulse 83 L 85 Oximetry O2 Sat by Pulse Oximetry [ Anterior Bilateral Throughout] 02/23/21 12:00 Temperature Pulse Rate 104 H Pulse Rate [ From Monitor] Respiratory Rate Blood Pressure 139/78 O2 Sat by Pulse Oximetry O2 Sat by Pulse Oximetry [ Anterior Bilateral Throughout] Constitutional: comatose Eyes: non-icteric ENT: other (orally intubated and sedated) Neck: supple Effort: mildly labored Ascultation: Bilateral: clear Percussion: Bilateral: not dull Cardiovascular: regular rate and rhythm (no mrg) Gastrointestinal: normoactive bowel sounds, soft, non-tender, non-distended Integumentary: normal Extremities: no cyanosis, no edema, pink and warm Neurologic: unable to assess CBC and BMP: 02/22/21 09:41 02/23/21 06:20 ABG, PT/INR, D-dimer: ABG ABG pH 7.246 pH Units (7.350-7.450) L 02/23/21 04:00 POC ABG pCO2 60.1 mmHg (32.0-48.0) H 02/22/21 04:22 ABG pCO2 62.7 mm Hg 02/23/21 04:00 POC ABG pO2 57.6 mmHg (83-108) L 02/22/21 04:22 ABG pO2 119.4 mm Hg (80.0-90.0) H 02/23/21 04:00 POC ABG HCO3 25.8 02/22/21 04:22 ABG O2 Saturation 97.7 % (95.0-99.0) 02/23/21 04:00 PT/INR, D-dimer PT 14.9 Sec. (12.2-14.9) 02/11/21 08:27 INR 1.17 (0.87-1.13) H 02/11/21 08:27 D-Dimer 4840.82 ng/mlDDU (0-234) H 02/19/21 05:45 Abnormal lab findings: Abnormal Labs 01/22/21 01/22/21 01/22/21 22:39 22:57 22:57 WBC RBC Hgb Hct MCV MCH MCHC RDW Plt Count Lymph % (Auto) 6.6 L Lymph # (Auto) 0.5 L Seg Neutrophils % 87.6 H Seg Neuts % (Manual) Lymphocytes % (Manual) Nucleated RBC % Seg Neutrophils # Seg Neutrophils # Man Lymphocytes # (Manual) Eosinophils # (Manual) INR D-Dimer ABG pH POC ABG pCO2 POC ABG pO2 ABG pO2 ABG HCO3 ABG O2 Saturation ABG Base Excess ABG Hemoglobin ABG Oxyhemoglobin ABG Sodium ABG Potassium ABG Chloride ABG Glucose Oxyhemoglobin Carboxyhemoglobin Sodium 129 L Potassium 3.4 L Chloride 90.4 L Carbon Dioxide BUN 34 H Creatinine 1.5 H Glucose 146 H POC Glucose Hemoglobin A1c Lactic Acid Calcium 7.8 L Phosphorus Magnesium Ferritin Total Bilirubin AST 75 H ALT 57 H Lactate Dehydrogenase C-Reactive Protein Albumin 2.9 L Triglycerides Arterial Blood Glucose Arterial Blood Ionized Calcium Urine Creatinine 301.2 H Coronavirus (PCR) Crossmatch 01/22/21 01/22/21 01/22/21 22:57 22:57 22:57 WBC RBC Hgb Hct MCV MCH MCHC RDW Plt Count Lymph % (Auto) Lymph # (Auto) Seg Neutrophils % Seg Neuts % (Manual) Lymphocytes % (Manual) Nucleated RBC % Seg Neutrophils # Seg Neutrophils # Man Lymphocytes # (Manual) Eosinophils # (Manual) INR D-Dimer 1173.89 H ABG pH POC ABG pCO2 POC ABG pO2 ABG pO2 ABG HCO3 ABG O2 Saturation ABG Base Excess ABG Hemoglobin ABG Oxyhemoglobin ABG Sodium ABG Potassium ABG Chloride ABG Glucose Oxyhemoglobin Carboxyhemoglobin Sodium Potassium Chloride Carbon Dioxide BUN Creatinine Glucose 149 H POC Glucose Hemoglobin A1c Lactic Acid 2.10 H* Calcium Phosphorus Magnesium Ferritin Total Bilirubin AST ALT Lactate Dehydrogenase 685 H C-Reactive Protein 30.40 H Albumin Triglycerides Arterial Blood Glucose Arterial Blood Ionized Calcium Urine Creatinine Coronavirus (PCR) Crossmatch 01/22/21 01/23/21 01/23/21 22:57 08:41 10:01 WBC RBC Hgb Hct MCV MCH MCHC RDW Plt Count Lymph % (Auto) Lymph # (Auto) Seg Neutrophils % Seg Neuts % (Manual) Lymphocytes % (Manual) Nucleated RBC % Seg Neutrophils # Seg Neutrophils # Man Lymphocytes # (Manual) Eosinophils # (Manual) INR D-Dimer ABG pH POC ABG pCO2 POC ABG pO2 ABG pO2 ABG HCO3 ABG O2 Saturation ABG Base Excess ABG Hemoglobin ABG Oxyhemoglobin ABG Sodium ABG Potassium ABG Chloride ABG Glucose Oxyhemoglobin Carboxyhemoglobin Sodium 131 L Potassium Chloride 88.7 L Carbon Dioxide 18 L BUN 36 H Creatinine 1.6 H Glucose 147 H POC Glucose Hemoglobin A1c Lactic Acid Calcium 7.5 L Phosphorus Magnesium Ferritin 1207.0 H Total Bilirubin AST ALT Lactate Dehydrogenase C-Reactive Protein Albumin Triglycerides Arterial Blood Glucose Arterial Blood Ionized Calcium Urine Creatinine Coronavirus (PCR) Positive A Crossmatch 01/23/21 01/23/21 01/24/21 20:49 Unknown 00:10 WBC RBC Hgb Hct MCV MCH MCHC RDW Plt Count Lymph % (Auto) Lymph # (Auto) Seg Neutrophils % Seg Neuts % (Manual) Lymphocytes % (Manual) Nucleated RBC % Seg Neutrophils # Seg Neutrophils # Man Lymphocytes # (Manual) Eosinophils # (Manual) INR D-Dimer ABG pH POC ABG pCO2 POC ABG pO2 ABG pO2 165.4 H ABG HCO3 ABG O2 Saturation ABG Base Excess -2.5 L ABG Hemoglobin ABG Oxyhemoglobin ABG Sodium ABG Potassium ABG Chloride ABG Glucose Oxyhemoglobin Carboxyhemoglobin Sodium 130 L Potassium Chloride 91.0 L Carbon Dioxide 20 L BUN 52 H Creatinine 3.8 H D Glucose 150 H POC Glucose 125 H Hemoglobin A1c Lactic Acid Calcium 8.0 L Phosphorus Magnesium Ferritin Total Bilirubin AST 42 H ALT Lactate Dehydrogenase C-Reactive Protein Albumin 2.4 L Triglycerides Arterial Blood Glucose Arterial Blood Ionized Calcium Urine Creatinine Coronavirus (PCR) Crossmatch 01/24/21 01/24/21 01/24/21 05:05 05:05 05:05 WBC 14.0 H RBC Hgb Hct MCV 95 H MCH 33 H MCHC RDW Plt Count Lymph % (Auto) Lymph # (Auto) Seg Neutrophils % Seg Neuts % (Manual) 91.0 H Lymphocytes % (Manual) 4.0 L Nucleated RBC % Seg Neutrophils # Seg Neutrophils # Man 12.7 H Lymphocytes # (Manual) 0.6 L Eosinophils # (Manual) INR D-Dimer 6159.48 H ABG pH POC ABG pCO2 POC ABG pO2 ABG pO2 ABG HCO3 ABG O2 Saturation ABG Base Excess ABG Hemoglobin ABG Oxyhemoglobin ABG Sodium ABG Potassium ABG Chloride ABG Glucose Oxyhemoglobin Carboxyhemoglobin Sodium Potassium Chloride Carbon Dioxide BUN Creatinine Glucose POC Glucose Hemoglobin A1c Lactic Acid Calcium Phosphorus Magnesium Ferritin 1178.0 H Total Bilirubin AST ALT Lactate Dehydrogenase C-Reactive Protein Albumin Triglycerides Arterial Blood Glucose Arterial Blood Ionized Calcium Urine Creatinine Coronavirus (PCR) Crossmatch 01/24/21 01/24/21 01/24/21 05:05 05:05 05:05 WBC RBC Hgb Hct MCV MCH MCHC RDW Plt Count Lymph % (Auto) Lymph # (Auto) Seg Neutrophils % Seg Neuts % (Manual) Lymphocytes % (Manual) Nucleated RBC % Seg Neutrophils # Seg Neutrophils # Man Lymphocytes # (Manual) Eosinophils # (Manual) INR D-Dimer ABG pH POC ABG pCO2 POC ABG pO2 ABG pO2 ABG HCO3 ABG O2 Saturation ABG Base Excess ABG Hemoglobin ABG Oxyhemoglobin ABG Sodium ABG Potassium ABG Chloride ABG Glucose Oxyhemoglobin Carboxyhemoglobin Sodium 132 L Potassium Chloride 93.1 L Carbon Dioxide 21 L BUN 57 H Creatinine 3.7 H Glucose 133 H POC Glucose Hemoglobin A1c Lactic Acid 2.20 H* Calcium 7.7 L Phosphorus Magnesium Ferritin Total Bilirubin AST ALT Lactate Dehydrogenase 658 H C-Reactive Protein 33.20 H Albumin 2.4 L Triglycerides Arterial Blood Glucose Arterial Blood Ionized Calcium Urine Creatinine Coronavirus (PCR) Crossmatch 01/24/21 01/24/21 01/24/21 05:34 06:00 17:35 WBC RBC Hgb Hct MCV MCH MCHC RDW Plt Count Lymph % (Auto) Lymph # (Auto) Seg Neutrophils % Seg Neuts % (Manual) Lymphocytes % (Manual) Nucleated RBC % Seg Neutrophils # Seg Neutrophils # Man Lymphocytes # (Manual) Eosinophils # (Manual) INR D-Dimer ABG pH POC ABG pCO2 POC ABG pO2 ABG pO2 ABG HCO3 ABG O2 Saturation ABG Base Excess ABG Hemoglobin ABG Oxyhemoglobin ABG Sodium ABG Potassium ABG Chloride ABG Glucose Oxyhemoglobin Carboxyhemoglobin Sodium Potassium Chloride Carbon Dioxide BUN Creatinine Glucose POC Glucose 136 H 137 H Hemoglobin A1c Lactic Acid Calcium Phosphorus Magnesium 2.80 H Ferritin Total Bilirubin AST ALT Lactate Dehydrogenase C-Reactive Protein Albumin Triglycerides Arterial Blood Glucose Arterial Blood Ionized Calcium Urine Creatinine Coronavirus (PCR) Crossmatch 01/25/21 01/25/21 01/25/21 04:15 05:40 05:40 WBC RBC Hgb Hct MCV 95 H MCH 33 H MCHC 35 H RDW Plt Count Lymph % (Auto) Lymph # (Auto) Seg Neutrophils % Seg Neuts % (Manual) 95.0 H Lymphocytes % (Manual) 3.0 L Nucleated RBC % Seg Neutrophils # Seg Neutrophils # Man 7.8 H Lymphocytes # (Manual) 0.2 L Eosinophils # (Manual) INR D-Dimer ABG pH POC ABG pCO2 POC ABG pO2 63.2 L ABG pO2 ABG HCO3 ABG O2 Saturation ABG Base Excess ABG Hemoglobin ABG Oxyhemoglobin 89.6 L ABG Sodium ABG Potassium ABG Chloride ABG Glucose 165 H Oxyhemoglobin Carboxyhemoglobin 0.3 L Sodium Potassium Chloride Carbon Dioxide BUN 67 H Creatinine 3.4 H Glucose 153 H POC Glucose Hemoglobin A1c Lactic Acid Calcium 7.5 L Phosphorus Magnesium Ferritin Total Bilirubin 1.40 H AST 62 H ALT Lactate Dehydrogenase C-Reactive Protein Albumin 2.6 L Triglycerides Arterial Blood Glucose 165 H Arterial Blood Ionized Calcium 4.3 L Urine Creatinine Coronavirus (PCR) Crossmatch 01/25/21 01/25/21 01/25/21 05:59 12:00 17:17 WBC RBC Hgb Hct MCV MCH MCHC RDW Plt Count Lymph % (Auto) Lymph # (Auto) Seg Neutrophils % Seg Neuts % (Manual) Lymphocytes % (Manual) Nucleated RBC % Seg Neutrophils # Seg Neutrophils # Man Lymphocytes # (Manual) Eosinophils # (Manual) INR D-Dimer ABG pH POC ABG pCO2 POC ABG pO2 ABG pO2 ABG HCO3 ABG O2 Saturation ABG Base Excess ABG Hemoglobin ABG Oxyhemoglobin ABG Sodium ABG Potassium ABG Chloride ABG Glucose Oxyhemoglobin Carboxyhemoglobin Sodium Potassium Chloride Carbon Dioxide BUN Creatinine Glucose POC Glucose 140 H 143 H 149 H Hemoglobin A1c Lactic Acid Calcium Phosphorus Magnesium Ferritin Total Bilirubin AST ALT Lactate Dehydrogenase C-Reactive Protein Albumin Triglycerides Arterial Blood Glucose Arterial Blood Ionized Calcium Urine Creatinine Coronavirus (PCR) Crossmatch 01/25/21 01/26/21 01/26/21 23:41 03:43 05:46 WBC RBC Hgb Hct MCV MCH MCHC RDW Plt Count Lymph % (Auto) Lymph # (Auto) Seg Neutrophils % Seg Neuts % (Manual) Lymphocytes % (Manual) Nucleated RBC % Seg Neutrophils # Seg Neutrophils # Man Lymphocytes # (Manual) Eosinophils # (Manual) INR D-Dimer ABG pH POC ABG pCO2 POC ABG pO2 70.0 L ABG pO2 ABG HCO3 ABG O2 Saturation ABG Base Excess ABG Hemoglobin ABG Oxyhemoglobin 91.9 L ABG Sodium ABG Potassium ABG Chloride 109.0 H ABG Glucose 165 H Oxyhemoglobin Carboxyhemoglobin Sodium Potassium Chloride Carbon Dioxide BUN Creatinine Glucose POC Glucose 132 H 161 H Hemoglobin A1c Lactic Acid Calcium Phosphorus Magnesium Ferritin Total Bilirubin AST ALT Lactate Dehydrogenase C-Reactive Protein Albumin Triglycerides Arterial Blood Glucose 165 H Arterial Blood Ionized Calcium 4.5 L Urine Creatinine Coronavirus (PCR) Crossmatch 01/26/21 01/26/21 01/26/21 05:47 05:47 05:47 WBC RBC Hgb Hct 35.3 L MCV 96 H MCH 33 H MCHC RDW Plt Count Lymph % (Auto) Lymph # (Auto) Seg Neutrophils % Seg Neuts % (Manual) 96.0 H Lymphocytes % (Manual) 2.0 L Nucleated RBC % Seg Neutrophils # Seg Neutrophils # Man Lymphocytes # (Manual) 0.1 L Eosinophils # (Manual) INR D-Dimer > 51319 H ABG pH POC ABG pCO2 POC ABG pO2 ABG pO2 ABG HCO3 ABG O2 Saturation ABG Base Excess ABG Hemoglobin ABG Oxyhemoglobin ABG Sodium ABG Potassium ABG Chloride ABG Glucose Oxyhemoglobin Carboxyhemoglobin Sodium Potassium Chloride Carbon Dioxide BUN 57 H Creatinine 2.2 H Glucose 185 H POC Glucose Hemoglobin A1c Lactic Acid Calcium 8.1 L Phosphorus Magnesium Ferritin Total Bilirubin AST ALT Lactate Dehydrogenase C-Reactive Protein Albumin Triglycerides Arterial Blood Glucose Arterial Blood Ionized Calcium Urine Creatinine Coronavirus (PCR) Crossmatch 01/26/21 01/26/21 01/26/21 05:47 05:47 05:47 WBC RBC Hgb Hct MCV MCH MCHC RDW Plt Count Lymph % (Auto) Lymph # (Auto) Seg Neutrophils % Seg Neuts % (Manual) Lymphocytes % (Manual) Nucleated RBC % Seg Neutrophils # Seg Neutrophils # Man Lymphocytes # (Manual) Eosinophils # (Manual) INR D-Dimer ABG pH POC ABG pCO2 POC ABG pO2 ABG pO2 ABG HCO3 ABG O2 Saturation ABG Base Excess ABG Hemoglobin ABG Oxyhemoglobin ABG Sodium ABG Potassium ABG Chloride ABG Glucose Oxyhemoglobin Carboxyhemoglobin Sodium Potassium Chloride 107.1 H Carbon Dioxide BUN 56 H Creatinine 2.2 H Glucose 188 H POC Glucose Hemoglobin A1c Lactic Acid Calcium 8.0 L Phosphorus Magnesium Ferritin 1178.0 H Total Bilirubin 1.50 H AST ALT Lactate Dehydrogenase 588 H C-Reactive Protein 40.10 H Albumin 2.2 L Triglycerides Arterial Blood Glucose Arterial Blood Ionized Calcium Urine Creatinine Coronavirus (PCR) Crossmatch 0301/26/21 01/26/21 11:34 18:17 23:20 WBC RBC Hgb Hct MCV MCH MCHC RDW Plt Count Lymph % (Auto) Lymph # (Auto) Seg Neutrophils % Seg Neuts % (Manual) Lymphocytes % (Manual) Nucleated RBC % Seg Neutrophils # Seg Neutrophils # Man Lymphocytes # (Manual) Eosinophils # (Manual) INR D-Dimer ABG pH POC ABG pCO2 POC ABG pO2 ABG pO2 ABG HCO3 ABG O2 Saturation ABG Base Excess ABG Hemoglobin ABG Oxyhemoglobin ABG Sodium ABG Potassium ABG Chloride ABG Glucose Oxyhemoglobin Carboxyhemoglobin Sodium Potassium Chloride Carbon Dioxide BUN Creatinine Glucose POC Glucose 129 H 205 H 155 H Hemoglobin A1c Lactic Acid Calcium Phosphorus Magnesium Ferritin Total Bilirubin AST ALT Lactate Dehydrogenase C-Reactive Protein Albumin Triglycerides Arterial Blood Glucose Arterial Blood Ionized Calcium Urine Creatinine Coronavirus (PCR) Crossmatch 01/27/21 01/27/21 01/27/21 02:45 05:29 05:29 WBC RBC 3.58 L Hgb 11.7 L Hct 34.9 L MCV 97 H MCH 33 H MCHC RDW Plt Count Lymph % (Auto) Lymph # (Auto) Seg Neutrophils % Seg Neuts % (Manual) 88.0 H Lymphocytes % (Manual) 7.0 L Nucleated RBC % Seg Neutrophils # Seg Neutrophils # Man Lymphocytes # (Manual) 0.5 L Eosinophils # (Manual) INR D-Dimer ABG pH 7.319 L POC ABG pCO2 50.7 H POC ABG pO2 63.0 L ABG pO2 ABG HCO3 ABG O2 Saturation ABG Base Excess ABG Hemoglobin ABG Oxyhemoglobin ABG Sodium 145.2 H ABG Potassium 5.1 H ABG Chloride 114.0 H ABG Glucose 178 H Oxyhemoglobin Carboxyhemoglobin Sodium Potassium Chloride Carbon Dioxide BUN Creatinine Glucose POC Glucose Hemoglobin A1c Lactic Acid Calcium Phosphorus Magnesium 4.00 H Ferritin Total Bilirubin AST ALT Lactate Dehydrogenase C-Reactive Protein Albumin Triglycerides Arterial Blood Glucose 178 H Arterial Blood Ionized Calcium Urine Creatinine Coronavirus (PCR) Crossmatch 01/27/21 01/27/21 01/27/21 05:29 05:29 05:31 WBC RBC Hgb Hct MCV MCH MCHC RDW Plt Count Lymph % (Auto) Lymph # (Auto) Seg Neutrophils % Seg Neuts % (Manual) Lymphocytes % (Manual) Nucleated RBC % Seg Neutrophils # Seg Neutrophils # Man Lymphocytes # (Manual) Eosinophils # (Manual) INR D-Dimer ABG pH POC ABG pCO2 POC ABG pO2 ABG pO2 ABG HCO3 ABG O2 Saturation ABG Base Excess ABG Hemoglobin ABG Oxyhemoglobin ABG Sodium ABG Potassium ABG Chloride ABG Glucose Oxyhemoglobin Carboxyhemoglobin Sodium Potassium 5.2 H Chloride 109.6 H Carbon Dioxide BUN 67 H Creatinine 2.8 H Glucose 195 H POC Glucose 176 H Hemoglobin A1c Lactic Acid Calcium 7.9 L Phosphorus Magnesium Ferritin Total Bilirubin AST ALT Lactate Dehydrogenase C-Reactive Protein Albumin Triglycerides 160 H Arterial Blood Glucose Arterial Blood Ionized Calcium Urine Creatinine Coronavirus (PCR) Crossmatch 01/27/21 01/27/21 01/27/21 11:27 18:08 23:30 WBC RBC Hgb Hct MCV MCH MCHC RDW Plt Count Lymph % (Auto) Lymph # (Auto) Seg Neutrophils % Seg Neuts % (Manual) Lymphocytes % (Manual) Nucleated RBC % Seg Neutrophils # Seg Neutrophils # Man Lymphocytes # (Manual) Eosinophils # (Manual) INR D-Dimer ABG pH POC ABG pCO2 POC ABG pO2 ABG pO2 ABG HCO3 ABG O2 Saturation ABG Base Excess ABG Hemoglobin ABG Oxyhemoglobin ABG Sodium ABG Potassium ABG Chloride ABG Glucose Oxyhemoglobin Carboxyhemoglobin Sodium Potassium Chloride Carbon Dioxide BUN Creatinine Glucose POC Glucose 189 H 212 H 175 H Hemoglobin A1c Lactic Acid Calcium Phosphorus Magnesium Ferritin Total Bilirubin AST ALT Lactate Dehydrogenase C-Reactive Protein Albumin Triglycerides Arterial Blood Glucose Arterial Blood Ionized Calcium Urine Creatinine Coronavirus (PCR) Crossmatch 01/28/21 01/28/21 01/28/21 03:58 04:00 04:00 WBC RBC Hgb Hct MCV MCH MCHC RDW Plt Count Lymph % (Auto) Lymph # (Auto) Seg Neutrophils % Seg Neuts % (Manual) Lymphocytes % (Manual) Nucleated RBC % Seg Neutrophils # Seg Neutrophils # Man Lymphocytes # (Manual) Eosinophils # (Manual) INR D-Dimer > 57964 H ABG pH POC ABG pCO2 POC ABG pO2 52.9 L ABG pO2 ABG HCO3 ABG O2 Saturation ABG Base Excess ABG Hemoglobin ABG Oxyhemoglobin 84.1 L ABG Sodium 148.9 H ABG Potassium ABG Chloride 117.0 H ABG Glucose 194 H Oxyhemoglobin Carboxyhemoglobin Sodium Potassium Chloride Carbon Dioxide BUN Creatinine Glucose POC Glucose Hemoglobin A1c Lactic Acid Calcium Phosphorus Magnesium Ferritin Total Bilirubin AST ALT Lactate Dehydrogenase 679 H C-Reactive Protein 17.10 H Albumin Triglycerides Arterial Blood Glucose 194 H Arterial Blood Ionized Calcium Urine Creatinine Coronavirus (PCR) Crossmatch 01/28/21 01/28/21 01/28/21 04:00 05:00 06:00 WBC RBC 3.59 L Hgb 11.6 L Hct 34.8 L MCV 97 H MCH MCHC RDW Plt Count Lymph % (Auto) Lymph # (Auto) Seg Neutrophils % Seg Neuts % (Manual) 96.0 H Lymphocytes % (Manual) 3.0 L Nucleated RBC % Seg Neutrophils # Seg Neutrophils # Man Lymphocytes # (Manual) 0.2 L Eosinophils # (Manual) INR D-Dimer ABG pH POC ABG pCO2 POC ABG pO2 ABG pO2 ABG HCO3 ABG O2 Saturation ABG Base Excess ABG Hemoglobin ABG Oxyhemoglobin ABG Sodium ABG Potassium ABG Chloride ABG Glucose Oxyhemoglobin Carboxyhemoglobin Sodium Potassium Chloride Carbon Dioxide BUN Creatinine Glucose POC Glucose 159 H Hemoglobin A1c Lactic Acid Calcium Phosphorus Magnesium Ferritin 798.0 H Total Bilirubin AST ALT Lactate Dehydrogenase C-Reactive Protein Albumin Triglycerides Arterial Blood Glucose Arterial Blood Ionized Calcium Urine Creatinine Coronavirus (PCR) Crossmatch 01/28/21 01/28/21 01/28/21 06:00 06:00 08:12 WBC RBC Hgb Hct MCV MCH MCHC RDW Plt Count Lymph % (Auto) Lymph # (Auto) Seg Neutrophils % Seg Neuts % (Manual) Lymphocytes % (Manual) Nucleated RBC % Seg Neutrophils # Seg Neutrophils # Man Lymphocytes # (Manual) Eosinophils # (Manual) INR D-Dimer ABG pH POC ABG pCO2 POC ABG pO2 ABG pO2 ABG HCO3 ABG O2 Saturation ABG Base Excess ABG Hemoglobin ABG Oxyhemoglobin ABG Sodium ABG Potassium ABG Chloride ABG Glucose Oxyhemoglobin Carboxyhemoglobin Sodium Potassium Chloride 111.9 H Carbon Dioxide BUN 59 H Creatinine 2.2 H Glucose 189 H POC Glucose 181 H Hemoglobin A1c Lactic Acid Calcium 8.1 L Phosphorus Magnesium 3.20 H Ferritin Total Bilirubin AST ALT Lactate Dehydrogenase C-Reactive Protein Albumin Triglycerides Arterial Blood Glucose Arterial Blood Ionized Calcium Urine Creatinine Coronavirus (PCR) Crossmatch 01/28/21 01/28/21 01/28/21 12:03 16:43 23:51 WBC RBC Hgb Hct MCV MCH MCHC RDW Plt Count Lymph % (Auto) Lymph # (Auto) Seg Neutrophils % Seg Neuts % (Manual) Lymphocytes % (Manual) Nucleated RBC % Seg Neutrophils # Seg Neutrophils # Man Lymphocytes # (Manual) Eosinophils # (Manual) INR D-Dimer ABG pH POC ABG pCO2 POC ABG pO2 ABG pO2 ABG HCO3 ABG O2 Saturation ABG Base Excess ABG Hemoglobin ABG Oxyhemoglobin ABG Sodium ABG Potassium ABG Chloride ABG Glucose Oxyhemoglobin Carboxyhemoglobin Sodium Potassium Chloride Carbon Dioxide BUN Creatinine Glucose POC Glucose 164 H 198 H 196 H Hemoglobin A1c Lactic Acid Calcium Phosphorus Magnesium Ferritin Total Bilirubin AST ALT Lactate Dehydrogenase C-Reactive Protein Albumin Triglycerides Arterial Blood Glucose Arterial Blood Ionized Calcium Urine Creatinine Coronavirus (PCR) Crossmatch 01/29/21 01/29/21 01/29/21 05:00 05:23 06:00 WBC RBC Hgb Hct MCV MCH MCHC RDW Plt Count Lymph % (Auto) Lymph # (Auto) Seg Neutrophils % Seg Neuts % (Manual) Lymphocytes % (Manual) Nucleated RBC % Seg Neutrophils # Seg Neutrophils # Man Lymphocytes # (Manual) Eosinophils # (Manual) INR D-Dimer ABG pH 7.119 L POC ABG pCO2 87.1 H POC ABG pO2 ABG pO2 ABG HCO3 ABG O2 Saturation ABG Base Excess ABG Hemoglobin ABG Oxyhemoglobin ABG Sodium 152.5 H ABG Potassium 5.7 H ABG Chloride 120.0 H ABG Glucose 217 H Oxyhemoglobin Carboxyhemoglobin Sodium 151 H Potassium 5.9 H D Chloride 117.8 H Carbon Dioxide BUN 54 H Creatinine 2.2 H Glucose 208 H POC Glucose 180 H Hemoglobin A1c Lactic Acid Calcium 7.9 L Phosphorus Magnesium Ferritin Total Bilirubin AST ALT Lactate Dehydrogenase C-Reactive Protein Albumin Triglycerides Arterial Blood Glucose 217 H Arterial Blood Ionized Calcium Urine Creatinine Coronavirus (PCR) Crossmatch 01/29/21 01/29/21 01/29/21 12:29 17:28 18:05 WBC RBC Hgb Hct MCV MCH MCHC RDW Plt Count Lymph % (Auto) Lymph # (Auto) Seg Neutrophils % Seg Neuts % (Manual) Lymphocytes % (Manual) Nucleated RBC % Seg Neutrophils # Seg Neutrophils # Man Lymphocytes # (Manual) Eosinophils # (Manual) INR D-Dimer ABG pH POC ABG pCO2 POC ABG pO2 ABG pO2 ABG HCO3 ABG O2 Saturation ABG Base Excess ABG Hemoglobin ABG Oxyhemoglobin ABG Sodium ABG Potassium ABG Chloride ABG Glucose Oxyhemoglobin Carboxyhemoglobin Sodium 151 H Potassium 5.5 H Chloride 118.2 H Carbon Dioxide BUN 52 H Creatinine 2.2 H Glucose 224 H POC Glucose 181 H 203 H Hemoglobin A1c Lactic Acid Calcium 8.0 L Phosphorus Magnesium Ferritin Total Bilirubin AST ALT Lactate Dehydrogenase C-Reactive Protein Albumin Triglycerides Arterial Blood Glucose Arterial Blood Ionized Calcium Urine Creatinine Coronavirus (PCR) Crossmatch 01/29/21 01/29/21 01/29/21 18:13 23:34 Unknown WBC RBC Hgb Hct MCV 101 H MCH MCHC RDW 15.7 H Plt Count Lymph % (Auto) Lymph # (Auto) Seg Neutrophils % Seg Neuts % (Manual) 95.0 H Lymphocytes % (Manual) 3.0 L Nucleated RBC % Seg Neutrophils # Seg Neutrophils # Man 8.0 H Lymphocytes # (Manual) 0.3 L Eosinophils # (Manual) INR D-Dimer ABG pH 7.223 L POC ABG pCO2 64.8 H POC ABG pO2 63.6 L ABG pO2 ABG HCO3 ABG O2 Saturation ABG Base Excess ABG Hemoglobin ABG Oxyhemoglobin 89.4 L ABG Sodium 152.9 H ABG Potassium 5.3 H ABG Chloride 121.0 H ABG Glucose 227 H Oxyhemoglobin Carboxyhemoglobin Sodium Potassium Chloride Carbon Dioxide BUN Creatinine Glucose POC Glucose 198 H Hemoglobin A1c Lactic Acid Calcium Phosphorus Magnesium Ferritin Total Bilirubin AST ALT Lactate Dehydrogenase C-Reactive Protein Albumin Triglycerides Arterial Blood Glucose 227 H Arterial Blood Ionized Calcium Urine Creatinine Coronavirus (PCR) Crossmatch 01/30/21 01/30/21 01/30/21 04:00 04:00 04:00 WBC RBC Hgb Hct MCV MCH MCHC RDW Plt Count Lymph % (Auto) Lymph # (Auto) Seg Neutrophils % Seg Neuts % (Manual) Lymphocytes % (Manual) Nucleated RBC % Seg Neutrophils # Seg Neutrophils # Man Lymphocytes # (Manual) Eosinophils # (Manual) INR D-Dimer > 20998 H ABG pH POC ABG pCO2 POC ABG pO2 ABG pO2 ABG HCO3 ABG O2 Saturation ABG Base Excess ABG Hemoglobin ABG Oxyhemoglobin ABG Sodium ABG Potassium ABG Chloride ABG Glucose Oxyhemoglobin Carboxyhemoglobin Sodium Potassium Chloride Carbon Dioxide BUN Creatinine Glucose 234 H POC Glucose Hemoglobin A1c Lactic Acid Calcium Phosphorus Magnesium Ferritin 763.9 H Total Bilirubin AST ALT Lactate Dehydrogenase 424 H C-Reactive Protein 23.90 H Albumin Triglycerides Arterial Blood Glucose Arterial Blood Ionized Calcium Urine Creatinine Coronavirus (PCR) Crossmatch 01/30/21 01/30/21 01/30/21 04:24 05:00 05:16 WBC RBC 3.57 L Hgb 11.3 L Hct 35.4 L MCV 99 H MCH MCHC RDW 15.6 H Plt Count Lymph % (Auto) Lymph # (Auto) Seg Neutrophils % Seg Neuts % (Manual) 97.0 H Lymphocytes % (Manual) 1.0 L Nucleated RBC % Seg Neutrophils # Seg Neutrophils # Man 8.6 H Lymphocytes # (Manual) 0.1 L Eosinophils # (Manual) INR D-Dimer ABG pH 7.235 L POC ABG pCO2 69.7 H POC ABG pO2 61.0 L ABG pO2 ABG HCO3 ABG O2 Saturation ABG Base Excess ABG Hemoglobin ABG Oxyhemoglobin 89 L ABG Sodium 154.2 H ABG Potassium 5.4 H ABG Chloride 121.0 H ABG Glucose 247 H Oxyhemoglobin Carboxyhemoglobin Sodium Potassium Chloride Carbon Dioxide BUN Creatinine Glucose POC Glucose 238 H Hemoglobin A1c Lactic Acid Calcium Phosphorus Magnesium Ferritin Total Bilirubin AST ALT Lactate Dehydrogenase C-Reactive Protein Albumin Triglycerides Arterial Blood Glucose 247 H Arterial Blood Ionized Calcium Urine Creatinine Coronavirus (PCR) Crossmatch 01/30/21 01/30/21 01/30/21 06:00 11:28 12:00 WBC RBC Hgb Hct MCV MCH MCHC RDW Plt Count Lymph % (Auto) Lymph # (Auto) Seg Neutrophils % Seg Neuts % (Manual) Lymphocytes % (Manual) Nucleated RBC % Seg Neutrophils # Seg Neutrophils # Man Lymphocytes # (Manual) Eosinophils # (Manual) INR D-Dimer ABG pH POC ABG pCO2 POC ABG pO2 ABG pO2 ABG HCO3 ABG O2 Saturation ABG Base Excess ABG Hemoglobin ABG Oxyhemoglobin ABG Sodium ABG Potassium ABG Chloride ABG Glucose Oxyhemoglobin Carboxyhemoglobin Sodium 152 H Potassium 5.3 H Chloride 120.5 H Carbon Dioxide BUN 50 H Creatinine 2.3 H Glucose 239 H POC Glucose 153 H Hemoglobin A1c Lactic Acid Calcium 8.2 L Phosphorus Magnesium 2.60 H Ferritin Total Bilirubin AST ALT Lactate Dehydrogenase C-Reactive Protein Albumin Triglycerides 293 H Arterial Blood Glucose Arterial Blood Ionized Calcium Urine Creatinine 53.0 H Coronavirus (PCR) Crossmatch 01/30/21 01/30/21 01/31/21 18:49 23:06 04:00 WBC RBC Hgb Hct MCV MCH MCHC RDW Plt Count Lymph % (Auto) Lymph # (Auto) Seg Neutrophils % Seg Neuts % (Manual) Lymphocytes % (Manual) Nucleated RBC % Seg Neutrophils # Seg Neutrophils # Man Lymphocytes # (Manual) Eosinophils # (Manual) INR D-Dimer ABG pH POC ABG pCO2 POC ABG pO2 ABG pO2 ABG HCO3 ABG O2 Saturation ABG Base Excess ABG Hemoglobin ABG Oxyhemoglobin ABG Sodium ABG Potassium ABG Chloride ABG Glucose Oxyhemoglobin Carboxyhemoglobin Sodium 156 H Potassium 5.9 H Chloride 122.6 H Carbon Dioxide BUN 61 H Creatinine 3.2 H Glucose 205 H POC Glucose 220 H 192 H Hemoglobin A1c Lactic Acid Calcium 8.0 L Phosphorus Magnesium Ferritin Total Bilirubin AST ALT Lactate Dehydrogenase C-Reactive Protein Albumin Triglycerides Arterial Blood Glucose Arterial Blood Ionized Calcium Urine Creatinine Coronavirus (PCR) Crossmatch 01/31/21 01/31/21 01/31/21 04:40 05:17 11:33 WBC RBC Hgb Hct MCV MCH MCHC RDW Plt Count Lymph % (Auto) Lymph # (Auto) Seg Neutrophils % Seg Neuts % (Manual) Lymphocytes % (Manual) Nucleated RBC % Seg Neutrophils # Seg Neutrophils # Man Lymphocytes # (Manual) Eosinophils # (Manual) INR D-Dimer ABG pH 7.161 L* POC ABG pCO2 POC ABG pO2 ABG pO2 142.2 H ABG HCO3 28.3 H ABG O2 Saturation ABG Base Excess -3.2 L ABG Hemoglobin ABG Oxyhemoglobin ABG Sodium ABG Potassium ABG Chloride ABG Glucose Oxyhemoglobin Carboxyhemoglobin Sodium Potassium Chloride Carbon Dioxide BUN Creatinine Glucose POC Glucose 200 H 167 H Hemoglobin A1c Lactic Acid Calcium Phosphorus Magnesium Ferritin Total Bilirubin AST ALT Lactate Dehydrogenase C-Reactive Protein Albumin Triglycerides Arterial Blood Glucose Arterial Blood Ionized Calcium Urine Creatinine Coronavirus (PCR) Crossmatch 01/31/21 01/31/21 01/31/21 14:00 17:10 23:24 WBC RBC Hgb Hct MCV MCH MCHC RDW Plt Count Lymph % (Auto) Lymph # (Auto) Seg Neutrophils % Seg Neuts % (Manual) Lymphocytes % (Manual) Nucleated RBC % Seg Neutrophils # Seg Neutrophils # Man Lymphocytes # (Manual) Eosinophils # (Manual) INR D-Dimer ABG pH 7.205 L POC ABG pCO2 POC ABG pO2 ABG pO2 90.9 H ABG HCO3 26.5 H ABG O2 Saturation ABG Base Excess -2.7 L ABG Hemoglobin 12.3 L ABG Oxyhemoglobin ABG Sodium ABG Potassium ABG Chloride ABG Glucose Oxyhemoglobin 93.9 L Carboxyhemoglobin Sodium Potassium Chloride Carbon Dioxide BUN Creatinine Glucose POC Glucose 190 H 203 H Hemoglobin A1c Lactic Acid Calcium Phosphorus Magnesium Ferritin Total Bilirubin AST ALT Lactate Dehydrogenase C-Reactive Protein Albumin Triglycerides Arterial Blood Glucose Arterial Blood Ionized Calcium Urine Creatinine Coronavirus (PCR) Crossmatch 02/01/21 02/01/21 02/01/21 05:15 06:22 10:20 WBC RBC Hgb Hct MCV MCH MCHC RDW Plt Count Lymph % (Auto) Lymph # (Auto) Seg Neutrophils % Seg Neuts % (Manual) Lymphocytes % (Manual) Nucleated RBC % Seg Neutrophils # Seg Neutrophils # Man Lymphocytes # (Manual) Eosinophils # (Manual) INR D-Dimer ABG pH 6.920 L* 7.116 L* POC ABG pCO2 POC ABG pO2 ABG pO2 102.9 H 113.1 H ABG HCO3 28.2 H ABG O2 Saturation 92.9 L ABG Base Excess -6.9 L -5.8 L ABG Hemoglobin 11.6 L 9.5 L ABG Oxyhemoglobin ABG Sodium ABG Potassium ABG Chloride ABG Glucose Oxyhemoglobin 90.5 L 94.6 L Carboxyhemoglobin Sodium Potassium Chloride Carbon Dioxide BUN Creatinine Glucose POC Glucose 221 H Hemoglobin A1c Lactic Acid Calcium Phosphorus Magnesium Ferritin Total Bilirubin AST ALT Lactate Dehydrogenase C-Reactive Protein Albumin Triglycerides Arterial Blood Glucose Arterial Blood Ionized Calcium Urine Creatinine Coronavirus (PCR) Crossmatch 02/01/21 02/01/21 02/01/21 11:12 12:35 16:00 WBC RBC Hgb Hct MCV MCH MCHC RDW Plt Count Lymph % (Auto) Lymph # (Auto) Seg Neutrophils % Seg Neuts % (Manual) Lymphocytes % (Manual) Nucleated RBC % Seg Neutrophils # Seg Neutrophils # Man Lymphocytes # (Manual) Eosinophils # (Manual) INR D-Dimer ABG pH 7.155 L* POC ABG pCO2 POC ABG pO2 ABG pO2 94.6 H ABG HCO3 ABG O2 Saturation ABG Base Excess -6.5 L ABG Hemoglobin 13.1 L ABG Oxyhemoglobin ABG Sodium ABG Potassium ABG Chloride ABG Glucose Oxyhemoglobin 93.7 L Carboxyhemoglobin Sodium 155 H Potassium 5.1 H Chloride 120.5 H Carbon Dioxide BUN 90 H Creatinine 6.1 H D Glucose 238 H POC Glucose 207 H Hemoglobin A1c Lactic Acid Calcium 7.4 L Phosphorus Magnesium Ferritin Total Bilirubin AST ALT Lactate Dehydrogenase C-Reactive Protein Albumin Triglycerides Arterial Blood Glucose Arterial Blood Ionized Calcium Urine Creatinine Coronavirus (PCR) Crossmatch 02/01/21 02/01/21 02/02/21 17:10 23:47 04:04 WBC RBC 3.02 L Hgb 9.8 L Hct 30.7 L MCV 102 H MCH MCHC RDW 15.6 H Plt Count Lymph % (Auto) 4.2 L Lymph # (Auto) 0.3 L Seg Neutrophils % Seg Neuts % (Manual) Lymphocytes % (Manual) Nucleated RBC % Seg Neutrophils # Seg Neutrophils # Man Lymphocytes # (Manual) Eosinophils # (Manual) INR D-Dimer ABG pH POC ABG pCO2 POC ABG pO2 ABG pO2 ABG HCO3 ABG O2 Saturation ABG Base Excess ABG Hemoglobin ABG Oxyhemoglobin ABG Sodium ABG Potassium ABG Chloride ABG Glucose Oxyhemoglobin Carboxyhemoglobin Sodium Potassium Chloride Carbon Dioxide BUN Creatinine Glucose POC Glucose 238 H 235 H Hemoglobin A1c Lactic Acid Calcium Phosphorus Magnesium Ferritin Total Bilirubin AST ALT Lactate Dehydrogenase C-Reactive Protein Albumin Triglycerides Arterial Blood Glucose Arterial Blood Ionized Calcium Urine Creatinine Coronavirus (PCR) Crossmatch 02/02/21 02/02/21 02/02/21 05:18 05:35 11:28 WBC RBC Hgb Hct MCV MCH MCHC RDW Plt Count Lymph % (Auto) Lymph # (Auto) Seg Neutrophils % Seg Neuts % (Manual) Lymphocytes % (Manual) Nucleated RBC % Seg Neutrophils # Seg Neutrophils # Man Lymphocytes # (Manual) Eosinophils # (Manual) INR D-Dimer ABG pH 7.195 L* POC ABG pCO2 POC ABG pO2 ABG pO2 72.5 L ABG HCO3 ABG O2 Saturation 91.2 L ABG Base Excess -5.3 L ABG Hemoglobin 6.0 L ABG Oxyhemoglobin ABG Sodium ABG Potassium ABG Chloride ABG Glucose Oxyhemoglobin 89.1 L Carboxyhemoglobin Sodium Potassium Chloride 110.4 H Carbon Dioxide BUN 92 H Creatinine Glucose POC Glucose 239 H Hemoglobin A1c Lactic Acid Calcium Phosphorus Magnesium Ferritin Total Bilirubin AST ALT Lactate Dehydrogenase C-Reactive Protein Albumin Triglycerides Arterial Blood Glucose Arterial Blood Ionized Calcium Urine Creatinine Coronavirus (PCR) Crossmatch 02/02/21 02/02/21 02/02/21 11:53 16:00 18:04 WBC RBC Hgb Hct MCV MCH MCHC RDW Plt Count Lymph % (Auto) Lymph # (Auto) Seg Neutrophils % Seg Neuts % (Manual) Lymphocytes % (Manual) Nucleated RBC % Seg Neutrophils # Seg Neutrophils # Man Lymphocytes # (Manual) Eosinophils # (Manual) INR D-Dimer ABG pH POC ABG pCO2 POC ABG pO2 ABG pO2 ABG HCO3 ABG O2 Saturation ABG Base Excess ABG Hemoglobin ABG Oxyhemoglobin ABG Sodium ABG Potassium ABG Chloride ABG Glucose Oxyhemoglobin Carboxyhemoglobin Sodium Potassium Chloride Carbon Dioxide BUN Creatinine Glucose POC Glucose 248 H 199 H Hemoglobin A1c 6.3 H Lactic Acid Calcium Phosphorus Magnesium Ferritin Total Bilirubin AST ALT Lactate Dehydrogenase C-Reactive Protein Albumin Triglycerides Arterial Blood Glucose Arterial Blood Ionized Calcium Urine Creatinine Coronavirus (PCR) Crossmatch 02/02/21 02/03/21 02/03/21 23:31 03:12 04:10 WBC RBC 3.06 L Hgb 9.7 L Hct 30.4 L MCV 99 H MCH MCHC RDW 15.3 H Plt Count Lymph % (Auto) 6.1 L Lymph # (Auto) 0.5 L Seg Neutrophils % 86.1 H Seg Neuts % (Manual) Lymphocytes % (Manual) Nucleated RBC % Seg Neutrophils # Seg Neutrophils # Man Lymphocytes # (Manual) Eosinophils # (Manual) INR D-Dimer ABG pH 7.199 L POC ABG pCO2 48.3 H POC ABG pO2 68.3 L ABG pO2 ABG HCO3 ABG O2 Saturation ABG Base Excess ABG Hemoglobin 10.2 L ABG Oxyhemoglobin 89.2 L ABG Sodium 155.0 H ABG Potassium 4.6 H ABG Chloride 121.0 H ABG Glucose 166 H Oxyhemoglobin Carboxyhemoglobin 0.3 L Sodium Potassium Chloride Carbon Dioxide BUN Creatinine Glucose POC Glucose 200 H Hemoglobin A1c Lactic Acid Calcium Phosphorus Magnesium Ferritin Total Bilirubin AST ALT Lactate Dehydrogenase C-Reactive Protein Albumin Triglycerides Arterial Blood Glucose 166 H Arterial Blood Ionized Calcium 4.1 L Urine Creatinine Coronavirus (PCR) Crossmatch 02/03/21 02/03/21 02/03/21 04:10 05:34 11:51 WBC RBC Hgb Hct MCV MCH MCHC RDW Plt Count Lymph % (Auto) Lymph # (Auto) Seg Neutrophils % Seg Neuts % (Manual) Lymphocytes % (Manual) Nucleated RBC % Seg Neutrophils # Seg Neutrophils # Man Lymphocytes # (Manual) Eosinophils # (Manual) INR D-Dimer ABG pH POC ABG pCO2 POC ABG pO2 ABG pO2 ABG HCO3 ABG O2 Saturation ABG Base Excess ABG Hemoglobin ABG Oxyhemoglobin ABG Sodium ABG Potassium ABG Chloride ABG Glucose Oxyhemoglobin Carboxyhemoglobin Sodium 154 H D Potassium Chloride 116.7 H Carbon Dioxide 20 L BUN 130 H Creatinine 9.2 H D Glucose 160 H POC Glucose 130 H 154 H Hemoglobin A1c Lactic Acid Calcium 6.7 L Phosphorus 8.60 H Magnesium Ferritin Total Bilirubin AST ALT Lactate Dehydrogenase C-Reactive Protein Albumin Triglycerides Arterial Blood Glucose Arterial Blood Ionized Calcium Urine Creatinine Coronavirus (PCR) Crossmatch 02/03/21 02/03/21 02/04/21 16:49 23:22 03:48 WBC RBC Hgb Hct MCV MCH MCHC RDW Plt Count Lymph % (Auto) Lymph # (Auto) Seg Neutrophils % Seg Neuts % (Manual) Lymphocytes % (Manual) Nucleated RBC % Seg Neutrophils # Seg Neutrophils # Man Lymphocytes # (Manual) Eosinophils # (Manual) INR D-Dimer ABG pH 7.201 L POC ABG pCO2 54.5 H POC ABG pO2 74.0 L ABG pO2 ABG HCO3 ABG O2 Saturation ABG Base Excess ABG Hemoglobin 9.7 L ABG Oxyhemoglobin 91.1 L ABG Sodium 146.2 H ABG Potassium ABG Chloride 114.0 H ABG Glucose 155 H Oxyhemoglobin Carboxyhemoglobin Sodium Potassium Chloride Carbon Dioxide BUN Creatinine Glucose POC Glucose 164 H 152 H Hemoglobin A1c Lactic Acid Calcium Phosphorus Magnesium Ferritin Total Bilirubin AST ALT Lactate Dehydrogenase C-Reactive Protein Albumin Triglycerides Arterial Blood Glucose 155 H Arterial Blood Ionized Calcium 3.9 L Urine Creatinine Coronavirus (PCR) Crossmatch 02/04/21 02/04/21 02/04/21 04:45 04:45 04:45 WBC RBC 2.75 L Hgb 9.1 L Hct 26.9 L MCV 98 H MCH 33 H MCHC RDW Plt Count Lymph % (Auto) 6.8 L Lymph # (Auto) 0.5 L Seg Neutrophils % 87.2 H Seg Neuts % (Manual) Lymphocytes % (Manual) Nucleated RBC % Seg Neutrophils # Seg Neutrophils # Man Lymphocytes # (Manual) Eosinophils # (Manual) INR D-Dimer ABG pH POC ABG pCO2 POC ABG pO2 ABG pO2 ABG HCO3 ABG O2 Saturation ABG Base Excess ABG Hemoglobin ABG Oxyhemoglobin ABG Sodium ABG Potassium ABG Chloride ABG Glucose Oxyhemoglobin Carboxyhemoglobin Sodium 149 H Potassium Chloride 111.5 H Carbon Dioxide BUN 99 H Creatinine 8.5 H Glucose 139 H POC Glucose Hemoglobin A1c Lactic Acid Calcium 6.8 L Phosphorus 8.40 H Magnesium Ferritin Total Bilirubin AST ALT Lactate Dehydrogenase C-Reactive Protein Albumin Triglycerides Arterial Blood Glucose Arterial Blood Ionized Calcium Urine Creatinine Coronavirus (PCR) Crossmatch 02/04/21 02/04/21 02/04/21 06:05 11:44 18:00 WBC RBC Hgb Hct MCV MCH MCHC RDW Plt Count Lymph % (Auto) Lymph # (Auto) Seg Neutrophils % Seg Neuts % (Manual) Lymphocytes % (Manual) Nucleated RBC % Seg Neutrophils # Seg Neutrophils # Man Lymphocytes # (Manual) Eosinophils # (Manual) INR D-Dimer ABG pH POC ABG pCO2 POC ABG pO2 ABG pO2 ABG HCO3 ABG O2 Saturation ABG Base Excess ABG Hemoglobin ABG Oxyhemoglobin ABG Sodium ABG Potassium ABG Chloride ABG Glucose Oxyhemoglobin Carboxyhemoglobin Sodium Potassium Chloride Carbon Dioxide BUN Creatinine Glucose POC Glucose 138 H 129 H 163 H Hemoglobin A1c Lactic Acid Calcium Phosphorus Magnesium Ferritin Total Bilirubin AST ALT Lactate Dehydrogenase C-Reactive Protein Albumin Triglycerides Arterial Blood Glucose Arterial Blood Ionized Calcium Urine Creatinine Coronavirus (PCR) Crossmatch 02/04/21 02/05/21 02/05/21 23:48 01:50 01:50 WBC RBC 2.43 L Hgb 8.3 L Hct 23.6 L MCV 97 H MCH 34 H MCHC 35 H RDW Plt Count 137 L Lymph % (Auto) 8.4 L Lymph # (Auto) 0.6 L Seg Neutrophils % 86.1 H Seg Neuts % (Manual) Lymphocytes % (Manual) Nucleated RBC % Seg Neutrophils # Seg Neutrophils # Man Lymphocytes # (Manual) Eosinophils # (Manual) INR D-Dimer ABG pH POC ABG pCO2 POC ABG pO2 ABG pO2 ABG HCO3 ABG O2 Saturation ABG Base Excess ABG Hemoglobin ABG Oxyhemoglobin ABG Sodium ABG Potassium ABG Chloride ABG Glucose Oxyhemoglobin Carboxyhemoglobin Sodium Potassium Chloride Carbon Dioxide BUN Creatinine Glucose POC Glucose 157 H Hemoglobin A1c Lactic Acid Calcium Phosphorus 5.60 H D Magnesium Ferritin Total Bilirubin AST ALT Lactate Dehydrogenase C-Reactive Protein Albumin Triglycerides Arterial Blood Glucose Arterial Blood Ionized Calcium Urine Creatinine Coronavirus (PCR) Crossmatch 02/05/21 02/05/21 02/05/21 03:44 05:27 09:15 WBC RBC Hgb Hct MCV MCH MCHC RDW Plt Count Lymph % (Auto) Lymph # (Auto) Seg Neutrophils % Seg Neuts % (Manual) Lymphocytes % (Manual) Nucleated RBC % Seg Neutrophils # Seg Neutrophils # Man Lymphocytes # (Manual) Eosinophils # (Manual) INR D-Dimer ABG pH 7.202 L POC ABG pCO2 63.7 H POC ABG pO2 69.0 L ABG pO2 ABG HCO3 ABG O2 Saturation ABG Base Excess ABG Hemoglobin 9.4 L ABG Oxyhemoglobin ABG Sodium ABG Potassium ABG Chloride 108.0 H ABG Glucose 186 H Oxyhemoglobin Carboxyhemoglobin Sodium Potassium Chloride Carbon Dioxide BUN 78 H Creatinine 8.0 H Glucose 163 H POC Glucose 157 H Hemoglobin A1c Lactic Acid Calcium 6.3 L Phosphorus Magnesium Ferritin Total Bilirubin AST ALT Lactate Dehydrogenase C-Reactive Protein Albumin Triglycerides Arterial Blood Glucose 186 H Arterial Blood Ionized Calcium 3.9 L Urine Creatinine Coronavirus (PCR) Crossmatch 02/05/21 02/05/21 02/05/21 11:47 17:39 23:40 WBC RBC Hgb Hct MCV MCH MCHC RDW Plt Count Lymph % (Auto) Lymph # (Auto) Seg Neutrophils % Seg Neuts % (Manual) Lymphocytes % (Manual) Nucleated RBC % Seg Neutrophils # Seg Neutrophils # Man Lymphocytes # (Manual) Eosinophils # (Manual) INR D-Dimer ABG pH 7.273 L POC ABG pCO2 62.1 H POC ABG pO2 72.0 L ABG pO2 ABG HCO3 ABG O2 Saturation ABG Base Excess ABG Hemoglobin 9.1 L ABG Oxyhemoglobin 91.3 L ABG Sodium ABG Potassium 3.1 L ABG Chloride ABG Glucose 125 H Oxyhemoglobin Carboxyhemoglobin Sodium Potassium Chloride Carbon Dioxide BUN Creatinine Glucose POC Glucose 126 H 126 H Hemoglobin A1c Lactic Acid Calcium Phosphorus Magnesium Ferritin Total Bilirubin AST ALT Lactate Dehydrogenase C-Reactive Protein Albumin Triglycerides Arterial Blood Glucose 125 H Arterial Blood Ionized Calcium 4.0 L Urine Creatinine Coronavirus (PCR) Crossmatch 02/06/21 02/06/21 02/06/21 04:30 04:57 09:45 WBC RBC Hgb Hct MCV MCH MCHC RDW Plt Count Lymph % (Auto) Lymph # (Auto) Seg Neutrophils % Seg Neuts % (Manual) Lymphocytes % (Manual) Nucleated RBC % Seg Neutrophils # Seg Neutrophils # Man Lymphocytes # (Manual) Eosinophils # (Manual) INR D-Dimer ABG pH 7.159 L 7.138 L* POC ABG pCO2 76.3 H POC ABG pO2 66.9 L ABG pO2 ABG HCO3 ABG O2 Saturation 93.4 L ABG Base Excess -6.0 L ABG Hemoglobin 11.2 L 11.7 L ABG Oxyhemoglobin 88.2 L ABG Sodium ABG Potassium ABG Chloride ABG Glucose 134 H Oxyhemoglobin 91.2 L Carboxyhemoglobin Sodium Potassium Chloride Carbon Dioxide BUN Creatinine Glucose POC Glucose 124 H Hemoglobin A1c Lactic Acid Calcium Phosphorus Magnesium Ferritin Total Bilirubin AST ALT Lactate Dehydrogenase C-Reactive Protein Albumin Triglycerides Arterial Blood Glucose 134 H Arterial Blood Ionized Calcium 3.9 L Urine Creatinine Coronavirus (PCR) Crossmatch 02/06/21 02/06/21 02/06/21 11:11 17:00 17:00 WBC RBC Hgb Hct MCV MCH MCHC RDW Plt Count Lymph % (Auto) Lymph # (Auto) Seg Neutrophils % Seg Neuts % (Manual) Lymphocytes % (Manual) Nucleated RBC % Seg Neutrophils # Seg Neutrophils # Man Lymphocytes # (Manual) Eosinophils # (Manual) INR D-Dimer ABG pH 7.158 L* POC ABG pCO2 POC ABG pO2 ABG pO2 109.8 H ABG HCO3 28.7 H ABG O2 Saturation ABG Base Excess -2.5 L ABG Hemoglobin ABG Oxyhemoglobin ABG Sodium ABG Potassium ABG Chloride ABG Glucose Oxyhemoglobin 94.5 L Carboxyhemoglobin Sodium Potassium Chloride Carbon Dioxide BUN Creatinine Glucose POC Glucose 120 H Hemoglobin A1c Lactic Acid Calcium Phosphorus Magnesium Ferritin Total Bilirubin AST ALT Lactate Dehydrogenase C-Reactive Protein Albumin Triglycerides 503 H Arterial Blood Glucose Arterial Blood Ionized Calcium Urine Creatinine Coronavirus (PCR) Crossmatch 02/06/21 02/06/21 02/06/21 17:28 20:16 Unknown WBC 13.5 H RBC 2.98 L Hgb 9.3 L Hct 28.6 L MCV 96 H MCH MCHC RDW Plt Count Lymph % (Auto) Lymph # (Auto) Seg Neutrophils % Seg Neuts % (Manual) 87.0 H Lymphocytes % (Manual) 7.0 L Nucleated RBC % Seg Neutrophils # Seg Neutrophils # Man 11.7 H Lymphocytes # (Manual) 0.9 L Eosinophils # (Manual) 0.5 H INR D-Dimer ABG pH POC ABG pCO2 POC ABG pO2 ABG pO2 ABG HCO3 ABG O2 Saturation ABG Base Excess ABG Hemoglobin ABG Oxyhemoglobin ABG Sodium ABG Potassium ABG Chloride ABG Glucose Oxyhemoglobin Carboxyhemoglobin Sodium Potassium Chloride Carbon Dioxide BUN Creatinine Glucose POC Glucose 147 H 164 H Hemoglobin A1c Lactic Acid Calcium Phosphorus Magnesium Ferritin Total Bilirubin AST ALT Lactate Dehydrogenase C-Reactive Protein Albumin Triglycerides Arterial Blood Glucose Arterial Blood Ionized Calcium Urine Creatinine Coronavirus (PCR) Crossmatch 02/06/21 02/07/21 02/07/21 Unknown 01:21 04:00 WBC 12.0 H RBC 2.61 L Hgb 8.2 L Hct 24.5 L MCV MCH MCHC RDW Plt Count Lymph % (Auto) 8.9 L Lymph # (Auto) 1.1 L Seg Neutrophils % 86.3 H Seg Neuts % (Manual) Lymphocytes % (Manual) Nucleated RBC % Seg Neutrophils # 10.3 H Seg Neutrophils # Man Lymphocytes # (Manual) Eosinophils # (Manual) INR D-Dimer ABG pH POC ABG pCO2 POC ABG pO2 ABG pO2 ABG HCO3 ABG O2 Saturation ABG Base Excess ABG Hemoglobin ABG Oxyhemoglobin ABG Sodium ABG Potassium ABG Chloride ABG Glucose Oxyhemoglobin Carboxyhemoglobin Sodium Potassium 3.5 L Chloride Carbon Dioxide BUN 58 H Creatinine 6.6 H Glucose 107 H POC Glucose 173 H Hemoglobin A1c Lactic Acid Calcium 6.7 L Phosphorus 8.00 H D Magnesium Ferritin Total Bilirubin AST ALT Lactate Dehydrogenase C-Reactive Protein Albumin Triglycerides Arterial Blood Glucose Arterial Blood Ionized Calcium Urine Creatinine Coronavirus (PCR) Crossmatch 02/07/21 02/07/21 02/07/21 04:00 04:45 11:49 WBC RBC Hgb Hct MCV MCH MCHC RDW Plt Count Lymph % (Auto) Lymph # (Auto) Seg Neutrophils % Seg Neuts % (Manual) Lymphocytes % (Manual) Nucleated RBC % Seg Neutrophils # Seg Neutrophils # Man Lymphocytes # (Manual) Eosinophils # (Manual) INR D-Dimer ABG pH 7.287 L POC ABG pCO2 64.8 H POC ABG pO2 74.0 L ABG pO2 ABG HCO3 ABG O2 Saturation ABG Base Excess ABG Hemoglobin 9.1 L ABG Oxyhemoglobin 92.0 L ABG Sodium ABG Potassium 2.8 L ABG Chloride ABG Glucose 226 H Oxyhemoglobin Carboxyhemoglobin Sodium Potassium Chloride Carbon Dioxide BUN Creatinine Glucose POC Glucose 170 H Hemoglobin A1c Lactic Acid Calcium Phosphorus 5.50 H D Magnesium Ferritin Total Bilirubin AST ALT Lactate Dehydrogenase C-Reactive Protein Albumin Triglycerides Arterial Blood Glucose 226 H Arterial Blood Ionized Calcium 3.7 L Urine Creatinine Coronavirus (PCR) Crossmatch 02/07/21 02/07/21 02/07/21 13:48 17:45 23:02 WBC RBC Hgb Hct MCV MCH MCHC RDW Plt Count Lymph % (Auto) Lymph # (Auto) Seg Neutrophils % Seg Neuts % (Manual) Lymphocytes % (Manual) Nucleated RBC % Seg Neutrophils # Seg Neutrophils # Man Lymphocytes # (Manual) Eosinophils # (Manual) INR D-Dimer ABG pH POC ABG pCO2 POC ABG pO2 ABG pO2 ABG HCO3 ABG O2 Saturation ABG Base Excess ABG Hemoglobin ABG Oxyhemoglobin ABG Sodium ABG Potassium ABG Chloride ABG Glucose Oxyhemoglobin Carboxyhemoglobin Sodium 136 L Potassium 2.6 L* D Chloride 95.1 L Carbon Dioxide 33 H D BUN 30 H Creatinine 3.6 H Glucose 184 H POC Glucose 172 H 172 H Hemoglobin A1c Lactic Acid Calcium 6.9 L Phosphorus Magnesium Ferritin Total Bilirubin AST ALT Lactate Dehydrogenase C-Reactive Protein Albumin Triglycerides Arterial Blood Glucose Arterial Blood Ionized Calcium Urine Creatinine Coronavirus (PCR) Crossmatch 02/08/21 02/08/21 02/08/21 05:22 06:00 06:00 WBC RBC 2.21 L Hgb 7.2 L Hct 21.0 L MCV 95 H MCH MCHC RDW Plt Count Lymph % (Auto) Lymph # (Auto) Seg Neutrophils % Seg Neuts % (Manual) 87.0 H Lymphocytes % (Manual) 4.0 L Nucleated RBC % Seg Neutrophils # Seg Neutrophils # Man 8.5 H Lymphocytes # (Manual) 0.4 L Eosinophils # (Manual) INR D-Dimer ABG pH POC ABG pCO2 POC ABG pO2 ABG pO2 ABG HCO3 ABG O2 Saturation ABG Base Excess ABG Hemoglobin ABG Oxyhemoglobin ABG Sodium ABG Potassium ABG Chloride ABG Glucose Oxyhemoglobin Carboxyhemoglobin Sodium 136 L Potassium 2.4 L* Chloride 93.1 L Carbon Dioxide 36 H BUN 43 H Creatinine 5.4 H Glucose 167 H POC Glucose 162 H Hemoglobin A1c Lactic Acid Calcium 6.3 L Phosphorus Magnesium Ferritin Total Bilirubin AST ALT Lactate Dehydrogenase C-Reactive Protein Albumin Triglycerides Arterial Blood Glucose Arterial Blood Ionized Calcium Urine Creatinine Coronavirus (PCR) Crossmatch 02/08/21 02/08/21 02/08/21 11:44 17:53 18:56 WBC RBC Hgb Hct MCV MCH MCHC RDW Plt Count Lymph % (Auto) Lymph # (Auto) Seg Neutrophils % Seg Neuts % (Manual) Lymphocytes % (Manual) Nucleated RBC % Seg Neutrophils # Seg Neutrophils # Man Lymphocytes # (Manual) Eosinophils # (Manual) INR D-Dimer ABG pH POC ABG pCO2 POC ABG pO2 ABG pO2 ABG HCO3 ABG O2 Saturation ABG Base Excess ABG Hemoglobin ABG Oxyhemoglobin ABG Sodium ABG Potassium ABG Chloride ABG Glucose Oxyhemoglobin Carboxyhemoglobin Sodium Potassium 2.9 L* D Chloride Carbon Dioxide BUN Creatinine Glucose POC Glucose 164 H 154 H Hemoglobin A1c Lactic Acid Calcium Phosphorus Magnesium Ferritin Total Bilirubin AST ALT Lactate Dehydrogenase C-Reactive Protein Albumin Triglycerides Arterial Blood Glucose Arterial Blood Ionized Calcium Urine Creatinine Coronavirus (PCR) Crossmatch 02/08/21 02/08/21 02/09/21 23:24 23:58 03:21 WBC RBC Hgb Hct MCV MCH MCHC RDW Plt Count Lymph % (Auto) Lymph # (Auto) Seg Neutrophils % Seg Neuts % (Manual) Lymphocytes % (Manual) Nucleated RBC % Seg Neutrophils # Seg Neutrophils # Man Lymphocytes # (Manual) Eosinophils # (Manual) INR D-Dimer ABG pH 7.319 L POC ABG pCO2 63.3 H 68.3 H POC ABG pO2 71.2 L 76.5 L ABG pO2 ABG HCO3 ABG O2 Saturation ABG Base Excess ABG Hemoglobin 8.2 L 7.0 L ABG Oxyhemoglobin 91.8 L 92.2 L ABG Sodium 134.6 L 133.0 L ABG Potassium 2.3 L 3.1 L ABG Chloride 96.0 L 95.0 L ABG Glucose 184 H 154 H Oxyhemoglobin Carboxyhemoglobin Sodium Potassium Chloride Carbon Dioxide BUN Creatinine Glucose POC Glucose 152 H Hemoglobin A1c Lactic Acid Calcium Phosphorus Magnesium Ferritin Total Bilirubin AST ALT Lactate Dehydrogenase C-Reactive Protein Albumin Triglycerides Arterial Blood Glucose 184 H 154 H Arterial Blood Ionized Calcium 3.6 L 3.5 L Urine Creatinine Coronavirus (PCR) Crossmatch 02/09/21 02/09/21 02/09/21 05:10 05:10 06:04 WBC RBC 2.14 L Hgb 7.0 L Hct 20.5 L MCV 96 H MCH 33 H MCHC RDW Plt Count Lymph % (Auto) Lymph # (Auto) Seg Neutrophils % Seg Neuts % (Manual) 82.0 H Lymphocytes % (Manual) 9.0 L Nucleated RBC % 1.0 H Seg Neutrophils # Seg Neutrophils # Man 8.9 H Lymphocytes # (Manual) 1.0 L Eosinophils # (Manual) INR D-Dimer ABG pH POC ABG pCO2 POC ABG pO2 ABG pO2 ABG HCO3 ABG O2 Saturation ABG Base Excess ABG Hemoglobin ABG Oxyhemoglobin ABG Sodium ABG Potassium ABG Chloride ABG Glucose Oxyhemoglobin Carboxyhemoglobin Sodium 135 L Potassium 3.2 L Chloride 91.0 L Carbon Dioxide 32 H BUN 54 H Creatinine 6.6 H Glucose 163 H POC Glucose 149 H Hemoglobin A1c Lactic Acid Calcium 6.2 L Phosphorus Magnesium Ferritin Total Bilirubin AST ALT Lactate Dehydrogenase C-Reactive Protein Albumin Triglycerides Arterial Blood Glucose Arterial Blood Ionized Calcium Urine Creatinine Coronavirus (PCR) Crossmatch 02/09/21 02/09/21 02/09/21 12:02 13:32 13:40 WBC RBC Hgb Hct MCV MCH MCHC RDW Plt Count Lymph % (Auto) Lymph # (Auto) Seg Neutrophils % Seg Neuts % (Manual) Lymphocytes % (Manual) Nucleated RBC % Seg Neutrophils # Seg Neutrophils # Man Lymphocytes # (Manual) Eosinophils # (Manual) INR D-Dimer ABG pH POC ABG pCO2 POC ABG pO2 ABG pO2 ABG HCO3 ABG O2 Saturation ABG Base Excess ABG Hemoglobin ABG Oxyhemoglobin ABG Sodium ABG Potassium ABG Chloride ABG Glucose Oxyhemoglobin Carboxyhemoglobin Sodium Potassium Chloride Carbon Dioxide BUN Creatinine Glucose POC Glucose 147 H Hemoglobin A1c Lactic Acid Calcium Phosphorus Magnesium Ferritin Total Bilirubin AST ALT Lactate Dehydrogenase C-Reactive Protein Albumin Triglycerides 250 H Arterial Blood Glucose Arterial Blood Ionized Calcium Urine Creatinine Coronavirus (PCR) Crossmatch See Detail 0402/09/21 02/10/21 18:06 23:42 04:00 WBC RBC Hgb Hct MCV MCH MCHC RDW Plt Count Lymph % (Auto) Lymph # (Auto) Seg Neutrophils % Seg Neuts % (Manual) Lymphocytes % (Manual) Nucleated RBC % Seg Neutrophils # Seg Neutrophils # Man Lymphocytes # (Manual) Eosinophils # (Manual) INR D-Dimer ABG pH POC ABG pCO2 65.8 H POC ABG pO2 68.0 L ABG pO2 ABG HCO3 ABG O2 Saturation ABG Base Excess ABG Hemoglobin 8.3 L ABG Oxyhemoglobin ABG Sodium 132.4 L ABG Potassium 2.9 L ABG Chloride 92.0 L ABG Glucose 174 H Oxyhemoglobin Carboxyhemoglobin Sodium Potassium Chloride Carbon Dioxide BUN Creatinine Glucose POC Glucose 152 H 147 H Hemoglobin A1c Lactic Acid Calcium Phosphorus Magnesium Ferritin Total Bilirubin AST ALT Lactate Dehydrogenase C-Reactive Protein Albumin Triglycerides Arterial Blood Glucose 174 H Arterial Blood Ionized Calcium 3.4 L Urine Creatinine Coronavirus (PCR) Crossmatch 02/10/21 02/10/21 02/10/21 05:32 11:29 14:08 WBC 12.5 H RBC 2.14 L Hgb 6.6 L Hct 20.2 L MCV MCH MCHC RDW Plt Count Lymph % (Auto) Lymph # (Auto) Seg Neutrophils % Seg Neuts % (Manual) Lymphocytes % (Manual) Nucleated RBC % Seg Neutrophils # Seg Neutrophils # Man Lymphocytes # (Manual) Eosinophils # (Manual) INR D-Dimer ABG pH POC ABG pCO2 POC ABG pO2 ABG pO2 ABG HCO3 ABG O2 Saturation ABG Base Excess ABG Hemoglobin ABG Oxyhemoglobin ABG Sodium ABG Potassium ABG Chloride ABG Glucose Oxyhemoglobin Carboxyhemoglobin Sodium Potassium Chloride Carbon Dioxide BUN Creatinine Glucose POC Glucose 167 H 147 H Hemoglobin A1c Lactic Acid Calcium Phosphorus Magnesium Ferritin Total Bilirubin AST ALT Lactate Dehydrogenase C-Reactive Protein Albumin Triglycerides Arterial Blood Glucose Arterial Blood Ionized Calcium Urine Creatinine Coronavirus (PCR) Crossmatch 02/10/21 02/10/21 02/10/21 14:08 18:11 22:32 WBC RBC Hgb 6.4 L Hct 19.1 L* MCV MCH MCHC RDW Plt Count Lymph % (Auto) Lymph # (Auto) Seg Neutrophils % Seg Neuts % (Manual) Lymphocytes % (Manual) Nucleated RBC % Seg Neutrophils # Seg Neutrophils # Man Lymphocytes # (Manual) Eosinophils # (Manual) INR D-Dimer ABG pH POC ABG pCO2 POC ABG pO2 ABG pO2 ABG HCO3 ABG O2 Saturation ABG Base Excess ABG Hemoglobin ABG Oxyhemoglobin ABG Sodium ABG Potassium ABG Chloride ABG Glucose Oxyhemoglobin Carboxyhemoglobin Sodium 136 L Potassium 2.9 L* Chloride 90.2 L Carbon Dioxide 33 H BUN 42 H Creatinine 7.5 H Glucose 155 H POC Glucose 173 H Hemoglobin A1c Lactic Acid Calcium 6.1 L Phosphorus Magnesium Ferritin Total Bilirubin AST ALT Lactate Dehydrogenase C-Reactive Protein Albumin Triglycerides Arterial Blood Glucose Arterial Blood Ionized Calcium Urine Creatinine Coronavirus (PCR) Crossmatch 02/11/21 02/11/21 02/11/21 00:28 04:05 04:30 WBC RBC Hgb Hct MCV MCH MCHC RDW Plt Count Lymph % (Auto) Lymph # (Auto) Seg Neutrophils % Seg Neuts % (Manual) Lymphocytes % (Manual) Nucleated RBC % Seg Neutrophils # Seg Neutrophils # Man Lymphocytes # (Manual) Eosinophils # (Manual) INR D-Dimer ABG pH 7.307 L POC ABG pCO2 72.2 H POC ABG pO2 72.3 L ABG pO2 ABG HCO3 ABG O2 Saturation ABG Base Excess ABG Hemoglobin 8.2 L ABG Oxyhemoglobin ABG Sodium 132.3 L ABG Potassium 3.2 L ABG Chloride 91.0 L ABG Glucose 197 H Oxyhemoglobin Carboxyhemoglobin Sodium 135 L Potassium 3.3 L Chloride 87.1 L Carbon Dioxide 36 H BUN 71 H Creatinine 7.9 H Glucose 263 H POC Glucose 192 H Hemoglobin A1c Lactic Acid Calcium 6.2 L Phosphorus Magnesium Ferritin Total Bilirubin AST ALT Lactate Dehydrogenase C-Reactive Protein Albumin Triglycerides Arterial Blood Glucose 197 H Arterial Blood Ionized Calcium 3.3 L Urine Creatinine Coronavirus (PCR) Crossmatch 02/11/21 02/11/21 02/11/21 04:30 05:47 08:27 WBC RBC 2.22 L Hgb 7.2 L Hct 21.0 L MCV MCH MCHC RDW Plt Count Lymph % (Auto) 8.7 L Lymph # (Auto) 0.9 L Seg Neutrophils % 85.5 H Seg Neuts % (Manual) Lymphocytes % (Manual) Nucleated RBC % Seg Neutrophils # 9.2 H Seg Neutrophils # Man Lymphocytes # (Manual) Eosinophils # (Manual) INR 1.17 H D-Dimer 1930.92 H ABG pH POC ABG pCO2 POC ABG pO2 ABG pO2 ABG HCO3 ABG O2 Saturation ABG Base Excess ABG Hemoglobin ABG Oxyhemoglobin ABG Sodium ABG Potassium ABG Chloride ABG Glucose Oxyhemoglobin Carboxyhemoglobin Sodium Potassium Chloride Carbon Dioxide BUN Creatinine Glucose POC Glucose 189 H Hemoglobin A1c Lactic Acid Calcium Phosphorus Magnesium Ferritin Total Bilirubin AST ALT Lactate Dehydrogenase C-Reactive Protein Albumin Triglycerides Arterial Blood Glucose Arterial Blood Ionized Calcium Urine Creatinine Coronavirus (PCR) Crossmatch 02/11/21 02/11/21 02/11/21 09:00 09:00 13:18 WBC RBC Hgb Hct MCV MCH MCHC RDW Plt Count Lymph % (Auto) Lymph # (Auto) Seg Neutrophils % Seg Neuts % (Manual) Lymphocytes % (Manual) Nucleated RBC % Seg Neutrophils # Seg Neutrophils # Man Lymphocytes # (Manual) Eosinophils # (Manual) INR D-Dimer ABG pH POC ABG pCO2 POC ABG pO2 ABG pO2 ABG HCO3 ABG O2 Saturation ABG Base Excess ABG Hemoglobin ABG Oxyhemoglobin ABG Sodium ABG Potassium ABG Chloride ABG Glucose Oxyhemoglobin Carboxyhemoglobin Sodium Potassium Chloride Carbon Dioxide BUN Creatinine Glucose 126 H POC Glucose 160 H Hemoglobin A1c Lactic Acid Calcium Phosphorus Magnesium Ferritin 1253.0 H Total Bilirubin AST ALT Lactate Dehydrogenase 649 H C-Reactive Protein 12.60 H Albumin Triglycerides Arterial Blood Glucose Arterial Blood Ionized Calcium Urine Creatinine Coronavirus (PCR) Crossmatch 02/11/21 02/11/21 02/11/21 14:30 16:59 22:34 WBC RBC Hgb 7.1 L 6.7 L Hct 20.5 L 19.9 L* MCV MCH MCHC RDW Plt Count Lymph % (Auto) Lymph # (Auto) Seg Neutrophils % Seg Neuts % (Manual) Lymphocytes % (Manual) Nucleated RBC % Seg Neutrophils # Seg Neutrophils # Man Lymphocytes # (Manual) Eosinophils # (Manual) INR D-Dimer ABG pH POC ABG pCO2 POC ABG pO2 ABG pO2 ABG HCO3 ABG O2 Saturation ABG Base Excess ABG Hemoglobin ABG Oxyhemoglobin ABG Sodium ABG Potassium ABG Chloride ABG Glucose Oxyhemoglobin Carboxyhemoglobin Sodium Potassium Chloride Carbon Dioxide BUN Creatinine Glucose POC Glucose 151 H Hemoglobin A1c Lactic Acid Calcium Phosphorus Magnesium Ferritin Total Bilirubin AST ALT Lactate Dehydrogenase C-Reactive Protein Albumin Triglycerides Arterial Blood Glucose Arterial Blood Ionized Calcium Urine Creatinine Coronavirus (PCR) Crossmatch 02/11/21 02/12/21 02/12/21 23:42 04:41 05:19 WBC RBC Hgb Hct MCV MCH MCHC RDW Plt Count Lymph % (Auto) Lymph # (Auto) Seg Neutrophils % Seg Neuts % (Manual) Lymphocytes % (Manual) Nucleated RBC % Seg Neutrophils # Seg Neutrophils # Man Lymphocytes # (Manual) Eosinophils # (Manual) INR D-Dimer ABG pH POC ABG pCO2 POC ABG pO2 ABG pO2 69.0 L ABG HCO3 32.5 H ABG O2 Saturation ABG Base Excess 7.7 H ABG Hemoglobin 5.1 L ABG Oxyhemoglobin ABG Sodium ABG Potassium ABG Chloride ABG Glucose Oxyhemoglobin 94.7 L Carboxyhemoglobin Sodium Potassium Chloride Carbon Dioxide BUN Creatinine Glucose POC Glucose 165 H 153 H Hemoglobin A1c Lactic Acid Calcium Phosphorus Magnesium Ferritin Total Bilirubin AST ALT Lactate Dehydrogenase C-Reactive Protein Albumin Triglycerides Arterial Blood Glucose Arterial Blood Ionized Calcium Urine Creatinine Coronavirus (PCR) Crossmatch 02/12/21 02/12/21 02/12/21 06:35 06:35 08:40 WBC RBC 2.21 L Hgb 7.2 L Hct 20.7 L MCV MCH 33 H MCHC 35 H RDW Plt Count Lymph % (Auto) Lymph # (Auto) Seg Neutrophils % Seg Neuts % (Manual) Lymphocytes % (Manual) Nucleated RBC % Seg Neutrophils # Seg Neutrophils # Man Lymphocytes # (Manual) Eosinophils # (Manual) INR D-Dimer ABG pH POC ABG pCO2 POC ABG pO2 ABG pO2 ABG HCO3 ABG O2 Saturation ABG Base Excess ABG Hemoglobin ABG Oxyhemoglobin ABG Sodium ABG Potassium ABG Chloride ABG Glucose Oxyhemoglobin Carboxyhemoglobin Sodium 135 L Potassium 3.4 L Chloride 91.8 L Carbon Dioxide 36 H BUN 57 H Creatinine 6.8 H Glucose 163 H POC Glucose Hemoglobin A1c Lactic Acid Calcium 7.0 L Phosphorus Magnesium 1.60 L Ferritin Total Bilirubin AST ALT Lactate Dehydrogenase C-Reactive Protein Albumin Triglycerides Arterial Blood Glucose Arterial Blood Ionized Calcium Urine Creatinine Coronavirus (PCR) Crossmatch 02/12/21 02/12/21 02/12/21 10:45 12:04 17:19 WBC RBC Hgb Hct MCV MCH MCHC RDW Plt Count Lymph % (Auto) Lymph # (Auto) Seg Neutrophils % Seg Neuts % (Manual) Lymphocytes % (Manual) Nucleated RBC % Seg Neutrophils # Seg Neutrophils # Man Lymphocytes # (Manual) Eosinophils # (Manual) INR D-Dimer ABG pH POC ABG pCO2 POC ABG pO2 ABG pO2 ABG HCO3 ABG O2 Saturation ABG Base Excess ABG Hemoglobin ABG Oxyhemoglobin ABG Sodium ABG Potassium ABG Chloride ABG Glucose Oxyhemoglobin Carboxyhemoglobin Sodium Potassium Chloride Carbon Dioxide BUN Creatinine Glucose POC Glucose 165 H 165 H Hemoglobin A1c Lactic Acid Calcium Phosphorus Magnesium Ferritin Total Bilirubin AST ALT Lactate Dehydrogenase C-Reactive Protein Albumin Triglycerides 182 H Arterial Blood Glucose Arterial Blood Ionized Calcium Urine Creatinine Coronavirus (PCR) Crossmatch 02/12/21 02/13/21 02/13/21 23:18 05:00 05:36 WBC RBC Hgb Hct MCV MCH MCHC RDW Plt Count Lymph % (Auto) Lymph # (Auto) Seg Neutrophils % Seg Neuts % (Manual) Lymphocytes % (Manual) Nucleated RBC % Seg Neutrophils # Seg Neutrophils # Man Lymphocytes # (Manual) Eosinophils # (Manual) INR D-Dimer ABG pH POC ABG pCO2 60.8 H POC ABG pO2 76.4 L ABG pO2 ABG HCO3 ABG O2 Saturation ABG Base Excess ABG Hemoglobin 7.4 L ABG Oxyhemoglobin ABG Sodium 133.2 L ABG Potassium 3.3 L ABG Chloride 96.0 L ABG Glucose 168 H Oxyhemoglobin Carboxyhemoglobin Sodium Potassium Chloride Carbon Dioxide BUN Creatinine Glucose POC Glucose 163 H 151 H Hemoglobin A1c Lactic Acid Calcium Phosphorus Magnesium Ferritin Total Bilirubin AST ALT Lactate Dehydrogenase C-Reactive Protein Albumin Triglycerides Arterial Blood Glucose 168 H Arterial Blood Ionized Calcium 4.3 L Urine Creatinine Coronavirus (PCR) Crossmatch 02/13/21 02/13/21 02/13/21 06:40 06:40 06:40 WBC RBC 2.19 L Hgb 7.0 L Hct 20.8 L MCV 95 H MCH MCHC RDW Plt Count Lymph % (Auto) Lymph # (Auto) Seg Neutrophils % Seg Neuts % (Manual) Lymphocytes % (Manual) Nucleated RBC % Seg Neutrophils # Seg Neutrophils # Man Lymphocytes # (Manual) Eosinophils # (Manual) INR D-Dimer ABG pH POC ABG pCO2 POC ABG pO2 ABG pO2 ABG HCO3 ABG O2 Saturation ABG Base Excess ABG Hemoglobin ABG Oxyhemoglobin ABG Sodium ABG Potassium ABG Chloride ABG Glucose Oxyhemoglobin Carboxyhemoglobin Sodium 135 L Potassium 3.4 L Chloride 93.0 L Carbon Dioxide 32 H BUN 46 H Creatinine 5.8 H Glucose 148 H POC Glucose Hemoglobin A1c Lactic Acid Calcium 7.9 L Phosphorus Magnesium Ferritin Total Bilirubin AST ALT Lactate Dehydrogenase C-Reactive Protein 16.80 H Albumin Triglycerides Arterial Blood Glucose Arterial Blood Ionized Calcium Urine Creatinine Coronavirus (PCR) Crossmatch 02/13/21 02/13/21 02/13/21 06:40 07:38 07:38 WBC RBC Hgb Hct MCV MCH MCHC RDW Plt Count Lymph % (Auto) Lymph # (Auto) Seg Neutrophils % Seg Neuts % (Manual) Lymphocytes % (Manual) Nucleated RBC % Seg Neutrophils # Seg Neutrophils # Man Lymphocytes # (Manual) Eosinophils # (Manual) INR D-Dimer 1722.16 H ABG pH POC ABG pCO2 POC ABG pO2 ABG pO2 ABG HCO3 ABG O2 Saturation ABG Base Excess ABG Hemoglobin ABG Oxyhemoglobin ABG Sodium ABG Potassium ABG Chloride ABG Glucose Oxyhemoglobin Carboxyhemoglobin Sodium Potassium Chloride Carbon Dioxide BUN Creatinine Glucose POC Glucose Hemoglobin A1c Lactic Acid Calcium Phosphorus Magnesium 1.60 L Ferritin 976.5 H Total Bilirubin AST ALT Lactate Dehydrogenase C-Reactive Protein Albumin Triglycerides Arterial Blood Glucose Arterial Blood Ionized Calcium Urine Creatinine Coronavirus (PCR) Crossmatch 02/13/21 02/13/21 02/13/21 12:24 16:57 23:32 WBC RBC Hgb Hct MCV MCH MCHC RDW Plt Count Lymph % (Auto) Lymph # (Auto) Seg Neutrophils % Seg Neuts % (Manual) Lymphocytes % (Manual) Nucleated RBC % Seg Neutrophils # Seg Neutrophils # Man Lymphocytes # (Manual) Eosinophils # (Manual) INR D-Dimer ABG pH POC ABG pCO2 POC ABG pO2 ABG pO2 ABG HCO3 ABG O2 Saturation ABG Base Excess ABG Hemoglobin ABG Oxyhemoglobin ABG Sodium ABG Potassium ABG Chloride ABG Glucose Oxyhemoglobin Carboxyhemoglobin Sodium Potassium Chloride Carbon Dioxide BUN Creatinine Glucose POC Glucose 141 H 156 H 161 H Hemoglobin A1c Lactic Acid Calcium Phosphorus Magnesium Ferritin Total Bilirubin AST ALT Lactate Dehydrogenase C-Reactive Protein Albumin Triglycerides Arterial Blood Glucose Arterial Blood Ionized Calcium Urine Creatinine Coronavirus (PCR) Crossmatch 02/14/21 02/14/21 02/14/21 04:00 05:41 11:00 WBC RBC 2.14 L Hgb 6.9 L Hct 20.7 L MCV 97 H MCH 33 H MCHC RDW Plt Count Lymph % (Auto) Lymph # (Auto) Seg Neutrophils % Seg Neuts % (Manual) Lymphocytes % (Manual) Nucleated RBC % Seg Neutrophils # Seg Neutrophils # Man Lymphocytes # (Manual) Eosinophils # (Manual) INR D-Dimer ABG pH POC ABG pCO2 POC ABG pO2 ABG pO2 ABG HCO3 ABG O2 Saturation ABG Base Excess ABG Hemoglobin ABG Oxyhemoglobin ABG Sodium ABG Potassium ABG Chloride ABG Glucose Oxyhemoglobin Carboxyhemoglobin Sodium Potassium Chloride Carbon Dioxide BUN Creatinine Glucose POC Glucose 143 H Hemoglobin A1c Lactic Acid Calcium Phosphorus Magnesium Ferritin Total Bilirubin AST ALT Lactate Dehydrogenase C-Reactive Protein Albumin Triglycerides Arterial Blood Glucose Arterial Blood Ionized Calcium Urine Creatinine Coronavirus (PCR) Crossmatch See Detail 02/14/21 02/14/21 02/14/21 11:51 18:08 23:41 WBC RBC Hgb Hct MCV MCH MCHC RDW Plt Count Lymph % (Auto) Lymph # (Auto) Seg Neutrophils % Seg Neuts % (Manual) Lymphocytes % (Manual) Nucleated RBC % Seg Neutrophils # Seg Neutrophils # Man Lymphocytes # (Manual) Eosinophils # (Manual) INR D-Dimer ABG pH POC ABG pCO2 POC ABG pO2 ABG pO2 ABG HCO3 ABG O2 Saturation ABG Base Excess ABG Hemoglobin ABG Oxyhemoglobin ABG Sodium ABG Potassium ABG Chloride ABG Glucose Oxyhemoglobin Carboxyhemoglobin Sodium Potassium Chloride Carbon Dioxide BUN Creatinine Glucose POC Glucose 113 H 123 H 120 H Hemoglobin A1c Lactic Acid Calcium Phosphorus Magnesium Ferritin Total Bilirubin AST ALT Lactate Dehydrogenase C-Reactive Protein Albumin Triglycerides Arterial Blood Glucose Arterial Blood Ionized Calcium Urine Creatinine Coronavirus (PCR) Crossmatch 02/14/21 02/15/21 02/15/21 Unknown 05:00 05:00 WBC RBC Hgb Hct MCV MCH MCHC RDW Plt Count Lymph % (Auto) Lymph # (Auto) Seg Neutrophils % Seg Neuts % (Manual) Lymphocytes % (Manual) Nucleated RBC % Seg Neutrophils # Seg Neutrophils # Man Lymphocytes # (Manual) Eosinophils # (Manual) INR D-Dimer ABG pH POC ABG pCO2 53.4 H POC ABG pO2 61.8 L ABG pO2 ABG HCO3 ABG O2 Saturation ABG Base Excess ABG Hemoglobin 7.7 L ABG Oxyhemoglobin 88.8 L ABG Sodium ABG Potassium ABG Chloride ABG Glucose 143 H Oxyhemoglobin Carboxyhemoglobin 1.6 H Sodium Potassium Chloride 96.9 L Carbon Dioxide 33 H 31 H BUN 40 H 38 H Creatinine 5.2 H 4.8 H Glucose 152 H 132 H POC Glucose Hemoglobin A1c Lactic Acid Calcium 7.9 L Phosphorus Magnesium Ferritin Total Bilirubin AST ALT Lactate Dehydrogenase C-Reactive Protein Albumin Triglycerides Arterial Blood Glucose 143 H Arterial Blood Ionized Calcium Urine Creatinine Coronavirus (PCR) Crossmatch 02/15/21 02/15/21 02/15/21 05:00 05:27 12:05 WBC RBC 2.30 L Hgb 7.1 L Hct 22.1 L MCV 96 H MCH MCHC RDW 15.7 H Plt Count Lymph % (Auto) 11.0 L Lymph # (Auto) 1.1 L Seg Neutrophils % 83.0 H Seg Neuts % (Manual) Lymphocytes % (Manual) Nucleated RBC % Seg Neutrophils # 8.6 H Seg Neutrophils # Man Lymphocytes # (Manual) Eosinophils # (Manual) INR D-Dimer ABG pH POC ABG pCO2 POC ABG pO2 ABG pO2 ABG HCO3 ABG O2 Saturation ABG Base Excess ABG Hemoglobin ABG Oxyhemoglobin ABG Sodium ABG Potassium ABG Chloride ABG Glucose Oxyhemoglobin Carboxyhemoglobin Sodium Potassium Chloride Carbon Dioxide BUN Creatinine Glucose POC Glucose 133 H 123 H Hemoglobin A1c Lactic Acid Calcium Phosphorus Magnesium Ferritin Total Bilirubin AST ALT Lactate Dehydrogenase C-Reactive Protein Albumin Triglycerides Arterial Blood Glucose Arterial Blood Ionized Calcium Urine Creatinine Coronavirus (PCR) Crossmatch 02/15/21 02/15/21 02/16/21 17:08 23:52 03:44 WBC RBC Hgb Hct MCV MCH MCHC RDW Plt Count Lymph % (Auto) Lymph # (Auto) Seg Neutrophils % Seg Neuts % (Manual) Lymphocytes % (Manual) Nucleated RBC % Seg Neutrophils # Seg Neutrophils # Man Lymphocytes # (Manual) Eosinophils # (Manual) INR D-Dimer ABG pH 7.307 L POC ABG pCO2 59.5 H POC ABG pO2 63.2 L ABG pO2 ABG HCO3 ABG O2 Saturation ABG Base Excess ABG Hemoglobin 9.3 L ABG Oxyhemoglobin ABG Sodium ABG Potassium ABG Chloride ABG Glucose 148 H Oxyhemoglobin Carboxyhemoglobin Sodium Potassium Chloride Carbon Dioxide BUN Creatinine Glucose POC Glucose 129 H 136 H Hemoglobin A1c Lactic Acid Calcium Phosphorus Magnesium Ferritin Total Bilirubin AST ALT Lactate Dehydrogenase C-Reactive Protein Albumin Triglycerides Arterial Blood Glucose 148 H Arterial Blood Ionized Calcium Urine Creatinine Coronavirus (PCR) Crossmatch 02/16/21 02/16/21 02/16/21 05:26 06:00 12:14 WBC RBC Hgb Hct MCV MCH MCHC RDW Plt Count Lymph % (Auto) Lymph # (Auto) Seg Neutrophils % Seg Neuts % (Manual) Lymphocytes % (Manual) Nucleated RBC % Seg Neutrophils # Seg Neutrophils # Man Lymphocytes # (Manual) Eosinophils # (Manual) INR D-Dimer ABG pH POC ABG pCO2 POC ABG pO2 ABG pO2 ABG HCO3 ABG O2 Saturation ABG Base Excess ABG Hemoglobin ABG Oxyhemoglobin ABG Sodium ABG Potassium ABG Chloride ABG Glucose Oxyhemoglobin Carboxyhemoglobin Sodium Potassium Chloride Carbon Dioxide BUN 52 H Creatinine 6.0 H Glucose 138 H POC Glucose 135 H 128 H Hemoglobin A1c Lactic Acid Calcium Phosphorus Magnesium Ferritin Total Bilirubin AST ALT Lactate Dehydrogenase C-Reactive Protein Albumin Triglycerides Arterial Blood Glucose Arterial Blood Ionized Calcium Urine Creatinine Coronavirus (PCR) Crossmatch 02/16/21 02/16/21 02/16/21 17:09 17:09 17:09 WBC RBC Hgb Hct MCV MCH MCHC RDW Plt Count Lymph % (Auto) Lymph # (Auto) Seg Neutrophils % Seg Neuts % (Manual) Lymphocytes % (Manual) Nucleated RBC % Seg Neutrophils # Seg Neutrophils # Man Lymphocytes # (Manual) Eosinophils # (Manual) INR D-Dimer 4256.08 H ABG pH POC ABG pCO2 POC ABG pO2 ABG pO2 ABG HCO3 ABG O2 Saturation ABG Base Excess ABG Hemoglobin ABG Oxyhemoglobin ABG Sodium ABG Potassium ABG Chloride ABG Glucose Oxyhemoglobin Carboxyhemoglobin Sodium Potassium Chloride Carbon Dioxide BUN Creatinine Glucose POC Glucose Hemoglobin A1c Lactic Acid Calcium Phosphorus Magnesium Ferritin 980.6 H Total Bilirubin AST ALT Lactate Dehydrogenase 441 H C-Reactive Protein 20.20 H Albumin Triglycerides Arterial Blood Glucose Arterial Blood Ionized Calcium Urine Creatinine Coronavirus (PCR) Crossmatch 02/16/21 02/16/21 02/16/21 17:25 23:16 Unknown WBC RBC 2.19 L Hgb 7.1 L Hct 21.3 L MCV 98 H MCH 33 H MCHC RDW 16.0 H Plt Count Lymph % (Auto) Lymph # (Auto) Seg Neutrophils % Seg Neuts % (Manual) 85.0 H Lymphocytes % (Manual) 6.0 L Nucleated RBC % 4.0 H Seg Neutrophils # Seg Neutrophils # Man Lymphocytes # (Manual) 0.5 L Eosinophils # (Manual) INR D-Dimer ABG pH POC ABG pCO2 POC ABG pO2 ABG pO2 ABG HCO3 ABG O2 Saturation ABG Base Excess ABG Hemoglobin ABG Oxyhemoglobin ABG Sodium ABG Potassium ABG Chloride ABG Glucose Oxyhemoglobin Carboxyhemoglobin Sodium Potassium Chloride Carbon Dioxide BUN Creatinine Glucose POC Glucose 146 H 150 H Hemoglobin A1c Lactic Acid Calcium Phosphorus Magnesium Ferritin Total Bilirubin AST ALT Lactate Dehydrogenase C-Reactive Protein Albumin Triglycerides Arterial Blood Glucose Arterial Blood Ionized Calcium Urine Creatinine Coronavirus (PCR) Crossmatch 02/17/21 02/17/21 02/17/21 04:00 04:14 04:14 WBC RBC Hgb Hct MCV MCH MCHC RDW Plt Count Lymph % (Auto) Lymph # (Auto) Seg Neutrophils % Seg Neuts % (Manual) Lymphocytes % (Manual) Nucleated RBC % Seg Neutrophils # Seg Neutrophils # Man Lymphocytes # (Manual) Eosinophils # (Manual) INR D-Dimer 3183.35 H ABG pH 7.293 L POC ABG pCO2 59.5 H POC ABG pO2 68.1 L ABG pO2 ABG HCO3 ABG O2 Saturation ABG Base Excess ABG Hemoglobin 7.7 L ABG Oxyhemoglobin ABG Sodium 133.4 L ABG Potassium ABG Chloride ABG Glucose 143 H Oxyhemoglobin Carboxyhemoglobin Sodium 136 L Potassium Chloride 97.3 L Carbon Dioxide BUN 49 H Creatinine 5.3 H Glucose 139 H POC Glucose Hemoglobin A1c Lactic Acid Calcium Phosphorus Magnesium Ferritin Total Bilirubin AST ALT Lactate Dehydrogenase C-Reactive Protein Albumin Triglycerides Arterial Blood Glucose 143 H Arterial Blood Ionized Calcium Urine Creatinine Coronavirus (PCR) Crossmatch 02/17/21 02/17/21 02/17/21 04:14 04:14 04:14 WBC RBC 2.14 L Hgb 6.9 L Hct 21.0 L MCV 98 H MCH MCHC RDW 15.8 H Plt Count Lymph % (Auto) Lymph # (Auto) Seg Neutrophils % Seg Neuts % (Manual) Lymphocytes % (Manual) Nucleated RBC % Seg Neutrophils # Seg Neutrophils # Man Lymphocytes # (Manual) Eosinophils # (Manual) INR D-Dimer ABG pH POC ABG pCO2 POC ABG pO2 ABG pO2 ABG HCO3 ABG O2 Saturation ABG Base Excess ABG Hemoglobin ABG Oxyhemoglobin ABG Sodium ABG Potassium ABG Chloride ABG Glucose Oxyhemoglobin Carboxyhemoglobin Sodium Potassium Chloride Carbon Dioxide BUN Creatinine Glucose POC Glucose Hemoglobin A1c Lactic Acid Calcium Phosphorus Magnesium Ferritin 894.0 H Total Bilirubin AST ALT Lactate Dehydrogenase 399 H C-Reactive Protein 22.10 H Albumin Triglycerides Arterial Blood Glucose Arterial Blood Ionized Calcium Urine Creatinine Coronavirus (PCR) Crossmatch 02/17/21 02/17/21 02/17/21 06:06 07:45 12:25 WBC RBC Hgb 7.6 L Hct 22.8 L MCV MCH MCHC RDW Plt Count Lymph % (Auto) Lymph # (Auto) Seg Neutrophils % Seg Neuts % (Manual) Lymphocytes % (Manual) Nucleated RBC % Seg Neutrophils # Seg Neutrophils # Man Lymphocytes # (Manual) Eosinophils # (Manual) INR D-Dimer ABG pH POC ABG pCO2 POC ABG pO2 ABG pO2 ABG HCO3 ABG O2 Saturation ABG Base Excess ABG Hemoglobin ABG Oxyhemoglobin ABG Sodium ABG Potassium ABG Chloride ABG Glucose Oxyhemoglobin Carboxyhemoglobin Sodium Potassium Chloride Carbon Dioxide BUN Creatinine Glucose POC Glucose 134 H Hemoglobin A1c Lactic Acid Calcium Phosphorus Magnesium Ferritin Total Bilirubin AST ALT Lactate Dehydrogenase C-Reactive Protein Albumin Triglycerides Arterial Blood Glucose Arterial Blood Ionized Calcium Urine Creatinine Coronavirus (PCR) Crossmatch See Detail 02/17/21 02/17/21 02/17/21 12:35 17:56 23:34 WBC RBC Hgb Hct MCV MCH MCHC RDW Plt Count Lymph % (Auto) Lymph # (Auto) Seg Neutrophils % Seg Neuts % (Manual) Lymphocytes % (Manual) Nucleated RBC % Seg Neutrophils # Seg Neutrophils # Man Lymphocytes # (Manual) Eosinophils # (Manual) INR D-Dimer ABG pH POC ABG pCO2 POC ABG pO2 ABG pO2 ABG HCO3 ABG O2 Saturation ABG Base Excess ABG Hemoglobin ABG Oxyhemoglobin ABG Sodium ABG Potassium ABG Chloride ABG Glucose Oxyhemoglobin Carboxyhemoglobin Sodium Potassium Chloride Carbon Dioxide BUN Creatinine Glucose POC Glucose 114 H 128 H 120 H Hemoglobin A1c Lactic Acid Calcium Phosphorus Magnesium Ferritin Total Bilirubin AST ALT Lactate Dehydrogenase C-Reactive Protein Albumin Triglycerides Arterial Blood Glucose Arterial Blood Ionized Calcium Urine Creatinine Coronavirus (PCR) Crossmatch 02/18/21 02/18/21 02/18/21 04:03 04:55 05:02 WBC RBC 2.40 L Hgb 7.5 L Hct 23.1 L MCV 96 H MCH MCHC RDW 16.8 H Plt Count Lymph % (Auto) Lymph # (Auto) Seg Neutrophils % Seg Neuts % (Manual) Lymphocytes % (Manual) Nucleated RBC % Seg Neutrophils # Seg Neutrophils # Man Lymphocytes # (Manual) Eosinophils # (Manual) INR D-Dimer ABG pH 7.219 L POC ABG pCO2 58.7 H POC ABG pO2 64.2 L ABG pO2 ABG HCO3 ABG O2 Saturation ABG Base Excess ABG Hemoglobin ABG Oxyhemoglobin ABG Sodium 130.5 L ABG Potassium ABG Chloride ABG Glucose 147 H Oxyhemoglobin Carboxyhemoglobin Sodium 134 L Potassium Chloride 97.9 L Carbon Dioxide BUN 64 H Creatinine 6.5 H Glucose 135 H POC Glucose Hemoglobin A1c Lactic Acid Calcium 8.0 L Phosphorus Magnesium Ferritin Total Bilirubin AST ALT Lactate Dehydrogenase C-Reactive Protein Albumin Triglycerides Arterial Blood Glucose 147 H Arterial Blood Ionized Calcium Urine Creatinine Coronavirus (PCR) Crossmatch 02/18/21 02/18/21 02/18/21 05:27 10:00 11:51 WBC RBC Hgb Hct MCV MCH MCHC RDW Plt Count Lymph % (Auto) Lymph # (Auto) Seg Neutrophils % Seg Neuts % (Manual) Lymphocytes % (Manual) Nucleated RBC % Seg Neutrophils # Seg Neutrophils # Man Lymphocytes # (Manual) Eosinophils # (Manual) INR D-Dimer ABG pH POC ABG pCO2 POC ABG pO2 ABG pO2 ABG HCO3 ABG O2 Saturation ABG Base Excess ABG Hemoglobin ABG Oxyhemoglobin ABG Sodium ABG Potassium ABG Chloride ABG Glucose Oxyhemoglobin Carboxyhemoglobin Sodium Potassium Chloride Carbon Dioxide BUN Creatinine Glucose POC Glucose 130 H 123 H Hemoglobin A1c Lactic Acid Calcium Phosphorus Magnesium Ferritin Total Bilirubin AST ALT Lactate Dehydrogenase C-Reactive Protein Albumin Triglycerides Arterial Blood Glucose Arterial Blood Ionized Calcium Urine Creatinine Coronavirus (PCR) Positive A Crossmatch 02/18/21 02/18/21 02/19/21 18:10 23:35 05:00 WBC RBC Hgb Hct MCV MCH MCHC RDW Plt Count Lymph % (Auto) Lymph # (Auto) Seg Neutrophils % Seg Neuts % (Manual) Lymphocytes % (Manual) Nucleated RBC % Seg Neutrophils # Seg Neutrophils # Man Lymphocytes # (Manual) Eosinophils # (Manual) INR D-Dimer ABG pH 7.232 L POC ABG pCO2 64.3 H POC ABG pO2 ABG pO2 ABG HCO3 ABG O2 Saturation ABG Base Excess ABG Hemoglobin 8.1 L ABG Oxyhemoglobin ABG Sodium 133.5 L ABG Potassium ABG Chloride ABG Glucose 148 H Oxyhemoglobin Carboxyhemoglobin 1.6 H Sodium Potassium Chloride Carbon Dioxide BUN Creatinine Glucose POC Glucose 123 H 137 H Hemoglobin A1c Lactic Acid Calcium Phosphorus Magnesium Ferritin Total Bilirubin AST ALT Lactate Dehydrogenase C-Reactive Protein Albumin Triglycerides Arterial Blood Glucose 148 H Arterial Blood Ionized Calcium Urine Creatinine Coronavirus (PCR) Crossmatch 02/19/21 02/19/21 02/19/21 05:12 05:45 05:45 WBC RBC Hgb Hct MCV MCH MCHC RDW Plt Count Lymph % (Auto) Lymph # (Auto) Seg Neutrophils % Seg Neuts % (Manual) Lymphocytes % (Manual) Nucleated RBC % Seg Neutrophils # Seg Neutrophils # Man Lymphocytes # (Manual) Eosinophils # (Manual) INR D-Dimer 4840.82 H ABG pH POC ABG pCO2 POC ABG pO2 ABG pO2 ABG HCO3 ABG O2 Saturation ABG Base Excess ABG Hemoglobin ABG Oxyhemoglobin ABG Sodium ABG Potassium ABG Chloride ABG Glucose Oxyhemoglobin Carboxyhemoglobin Sodium 135 L Potassium Chloride 97.8 L Carbon Dioxide BUN 58 H Creatinine 5.6 H Glucose 140 H POC Glucose 134 H Hemoglobin A1c Lactic Acid Calcium Phosphorus Magnesium Ferritin Total Bilirubin AST ALT Lactate Dehydrogenase 345 H C-Reactive Protein 15.20 H Albumin Triglycerides 195 H Arterial Blood Glucose Arterial Blood Ionized Calcium Urine Creatinine Coronavirus (PCR) Crossmatch 02/19/21 02/19/21 02/19/21 05:45 12:00 17:48 WBC RBC Hgb Hct MCV MCH MCHC RDW Plt Count Lymph % (Auto) Lymph # (Auto) Seg Neutrophils % Seg Neuts % (Manual) Lymphocytes % (Manual) Nucleated RBC % Seg Neutrophils # Seg Neutrophils # Man Lymphocytes # (Manual) Eosinophils # (Manual) INR D-Dimer ABG pH POC ABG pCO2 POC ABG pO2 ABG pO2 ABG HCO3 ABG O2 Saturation ABG Base Excess ABG Hemoglobin ABG Oxyhemoglobin ABG Sodium ABG Potassium ABG Chloride ABG Glucose Oxyhemoglobin Carboxyhemoglobin Sodium Potassium Chloride Carbon Dioxide BUN Creatinine Glucose POC Glucose 122 H 119 H Hemoglobin A1c Lactic Acid Calcium Phosphorus Magnesium Ferritin 951.8 H Total Bilirubin AST ALT Lactate Dehydrogenase C-Reactive Protein Albumin Triglycerides Arterial Blood Glucose Arterial Blood Ionized Calcium Urine Creatinine Coronavirus (PCR) Crossmatch 02/20/21 02/20/21 02/20/21 03:20 04:00 11:48 WBC RBC Hgb Hct MCV MCH MCHC RDW Plt Count Lymph % (Auto) Lymph # (Auto) Seg Neutrophils % Seg Neuts % (Manual) Lymphocytes % (Manual) Nucleated RBC % Seg Neutrophils # Seg Neutrophils # Man Lymphocytes # (Manual) Eosinophils # (Manual) INR D-Dimer ABG pH 7.276 L POC ABG pCO2 57.3 H POC ABG pO2 71.0 L ABG pO2 ABG HCO3 ABG O2 Saturation ABG Base Excess ABG Hemoglobin 8.2 L ABG Oxyhemoglobin 91.9 L ABG Sodium 128.1 L ABG Potassium 4.8 H ABG Chloride ABG Glucose Oxyhemoglobin Carboxyhemoglobin 1.6 H Sodium 136 L Potassium Chloride Carbon Dioxide BUN 69 H Creatinine 6.4 H Glucose POC Glucose 131 H Hemoglobin A1c Lactic Acid Calcium 8.1 L Phosphorus Magnesium Ferritin Total Bilirubin AST ALT Lactate Dehydrogenase C-Reactive Protein Albumin Triglycerides Arterial Blood Glucose Arterial Blood Ionized Calcium 4.5 L Urine Creatinine Coronavirus (PCR) Crossmatch 02/20/21 02/20/21 02/21/21 18:05 23:28 02:53 WBC RBC Hgb Hct MCV MCH MCHC RDW Plt Count Lymph % (Auto) Lymph # (Auto) Seg Neutrophils % Seg Neuts % (Manual) Lymphocytes % (Manual) Nucleated RBC % Seg Neutrophils # Seg Neutrophils # Man Lymphocytes # (Manual) Eosinophils # (Manual) INR D-Dimer ABG pH 7.288 L POC ABG pCO2 52.7 H POC ABG pO2 81.5 L ABG pO2 ABG HCO3 ABG O2 Saturation ABG Base Excess ABG Hemoglobin 8.5 L ABG Oxyhemoglobin 93.6 L ABG Sodium 132.5 L ABG Potassium 4.6 H ABG Chloride ABG Glucose 106 H Oxyhemoglobin Carboxyhemoglobin 1.6 H Sodium Potassium Chloride Carbon Dioxide BUN Creatinine Glucose POC Glucose 114 H 118 H Hemoglobin A1c Lactic Acid Calcium Phosphorus Magnesium Ferritin Total Bilirubin AST ALT Lactate Dehydrogenase C-Reactive Protein Albumin Triglycerides Arterial Blood Glucose 106 H Arterial Blood Ionized Calcium 4.4 L Urine Creatinine Coronavirus (PCR) Crossmatch 02/21/21 02/21/21 02/21/21 05:29 11:42 16:35 WBC RBC Hgb Hct MCV MCH MCHC RDW Plt Count Lymph % (Auto) Lymph # (Auto) Seg Neutrophils % Seg Neuts % (Manual) Lymphocytes % (Manual) Nucleated RBC % Seg Neutrophils # Seg Neutrophils # Man Lymphocytes # (Manual) Eosinophils # (Manual) INR D-Dimer ABG pH POC ABG pCO2 POC ABG pO2 ABG pO2 ABG HCO3 ABG O2 Saturation ABG Base Excess ABG Hemoglobin ABG Oxyhemoglobin ABG Sodium ABG Potassium ABG Chloride ABG Glucose Oxyhemoglobin Carboxyhemoglobin Sodium Potassium 5.6 H Chloride 97.6 L Carbon Dioxide BUN 68 H Creatinine 5.7 H Glucose 160 H POC Glucose 111 H 131 H Hemoglobin A1c Lactic Acid Calcium 8.0 L Phosphorus 7.90 H Magnesium 2.60 H Ferritin Total Bilirubin AST ALT Lactate Dehydrogenase C-Reactive Protein Albumin Triglycerides Arterial Blood Glucose Arterial Blood Ionized Calcium Urine Creatinine Coronavirus (PCR) Crossmatch 02/21/21 02/22/21 02/22/21 17:17 00:04 04:22 WBC RBC Hgb Hct MCV MCH MCHC RDW Plt Count Lymph % (Auto) Lymph # (Auto) Seg Neutrophils % Seg Neuts % (Manual) Lymphocytes % (Manual) Nucleated RBC % Seg Neutrophils # Seg Neutrophils # Man Lymphocytes # (Manual) Eosinophils # (Manual) INR D-Dimer ABG pH 7.250 L POC ABG pCO2 60.1 H POC ABG pO2 57.6 L ABG pO2 ABG HCO3 ABG O2 Saturation ABG Base Excess ABG Hemoglobin 8.8 L ABG Oxyhemoglobin 87.0 L ABG Sodium 133.4 L ABG Potassium 5.1 H ABG Chloride ABG Glucose 124 H Oxyhemoglobin Carboxyhemoglobin Sodium Potassium Chloride Carbon Dioxide BUN Creatinine Glucose POC Glucose 135 H 121 H Hemoglobin A1c Lactic Acid Calcium Phosphorus Magnesium Ferritin Total Bilirubin AST ALT Lactate Dehydrogenase C-Reactive Protein Albumin Triglycerides Arterial Blood Glucose 124 H Arterial Blood Ionized Calcium Urine Creatinine Coronavirus (PCR) Crossmatch 02/22/21 02/22/21 02/22/21 05:33 09:41 09:41 WBC 13.2 H RBC 2.35 L Hgb 7.5 L Hct 22.7 L MCV 96 H MCH MCHC RDW 17.0 H Plt Count Lymph % (Auto) Lymph # (Auto) Seg Neutrophils % Seg Neuts % (Manual) 93.0 H Lymphocytes % (Manual) 4.0 L Nucleated RBC % 1.0 H Seg Neutrophils # Seg Neutrophils # Man 12.3 H Lymphocytes # (Manual) 0.5 L Eosinophils # (Manual) INR D-Dimer ABG pH POC ABG pCO2 POC ABG pO2 ABG pO2 ABG HCO3 ABG O2 Saturation ABG Base Excess ABG Hemoglobin ABG Oxyhemoglobin ABG Sodium ABG Potassium ABG Chloride ABG Glucose Oxyhemoglobin Carboxyhemoglobin Sodium Potassium 5.4 H Chloride Carbon Dioxide BUN 61 H Creatinine 5.5 H Glucose 117 H POC Glucose 114 H Hemoglobin A1c Lactic Acid Calcium 8.3 L Phosphorus Magnesium Ferritin Total Bilirubin AST ALT Lactate Dehydrogenase C-Reactive Protein Albumin Triglycerides Arterial Blood Glucose Arterial Blood Ionized Calcium Urine Creatinine Coronavirus (PCR) Crossmatch 02/22/21 02/22/21 02/23/21 12:08 17:06 04:00 WBC RBC Hgb Hct MCV MCH MCHC RDW Plt Count Lymph % (Auto) Lymph # (Auto) Seg Neutrophils % Seg Neuts % (Manual) Lymphocytes % (Manual) Nucleated RBC % Seg Neutrophils # Seg Neutrophils # Man Lymphocytes # (Manual) Eosinophils # (Manual) INR D-Dimer ABG pH 7.246 L POC ABG pCO2 POC ABG pO2 ABG pO2 119.4 H ABG HCO3 26.6 H ABG O2 Saturation ABG Base Excess ABG Hemoglobin 8.8 L ABG Oxyhemoglobin ABG Sodium ABG Potassium ABG Chloride ABG Glucose Oxyhemoglobin Carboxyhemoglobin Sodium Potassium Chloride Carbon Dioxide BUN Creatinine Glucose POC Glucose 133 H 114 H Hemoglobin A1c Lactic Acid Calcium Phosphorus Magnesium Ferritin Total Bilirubin AST ALT Lactate Dehydrogenase C-Reactive Protein Albumin Triglycerides Arterial Blood Glucose Arterial Blood Ionized Calcium Urine Creatinine Coronavirus (PCR) Crossmatch 02/23/21 06:20 WBC RBC Hgb Hct MCV MCH MCHC RDW Plt Count Lymph % (Auto) Lymph # (Auto) Seg Neutrophils % Seg Neuts % (Manual) Lymphocytes % (Manual) Nucleated RBC % Seg Neutrophils # Seg Neutrophils # Man Lymphocytes # (Manual) Eosinophils # (Manual) INR D-Dimer ABG pH POC ABG pCO2 POC ABG pO2 ABG pO2 ABG HCO3 ABG O2 Saturation ABG Base Excess ABG Hemoglobin ABG Oxyhemoglobin ABG Sodium ABG Potassium ABG Chloride ABG Glucose Oxyhemoglobin Carboxyhemoglobin Sodium Potassium Chloride 97.6 L Carbon Dioxide BUN 79 H Creatinine 6.2 H Glucose POC Glucose Hemoglobin A1c Lactic Acid Calcium 8.3 L Phosphorus Magnesium Ferritin Total Bilirubin AST ALT Lactate Dehydrogenase C-Reactive Protein Albumin Triglycerides Arterial Blood Glucose Arterial Blood Ionized Calcium Urine Creatinine Coronavirus (PCR) Crossmatch
--- NOTE | 2021-02-23 17:24 | Progress Note ---
Assessment and Plan Assessment and plan: This is a 60-year-old male with diabetes mellitus, hypertension, hyperlipidemia, chronic renal insufficiency who was admitted on 01/23 as a COVID-19 PUI with Sepsis, COVID-19 pneumonia, coag negative staph bacteremia, acute hypoxic respiratory failure, and acute kidney injury. Sepsis COVID-19 pneumonia Coag-neg Staph bacteremia Acute hypoxic respiratory failure Acute kidney injury, HD initiated 02/03 Anemia Diabetes mellitus Hypertension Hyperlipidemia Chronic renal insufficiency Elevated D-dimer -[facility], nephrology, infectious disease, GI consulted, appreciate recommendations -s/p Antibiotic therapy, remdesivir, Steroid therapy -COVID-19 PCR positive, Pneumonia on CXR -Mechanical ventilation, wean as tolerated -VAP bundle -HD per nephrology -S/p 4 units PRBC during stay -Trend BMP, CBC, COVID-19 inflammatory markers -Bilateral lower extremity and upper extremity Doppler ultrasound negative for DVT/SVT -SSI and Long-acting insulin -Accu-Cheks every 6 while on tube feedings -Hold home antihypertensive regimen for now as he is still needing vasopressor support -Blood pressure monitoring per protocol -S/p NaHCO3 gtt -02/17 CT head showed no acute intracranial abnormality, paranasal sinus disease -Bowel regimen DVT/GI prophylaxis: SCDs to bilateral lower extremities while in bed, PPI, heparin subq Dispo: ICU The high probability of a clinically significant, sudden or life threatening de terioration of the [multi] system(s) required my full and direct attention, intervention and personal management. The aggregate critical care time was [32] minutes. This time is in addition to time spent performing reported procedures but includes the following: [x] Data Review and interpretation [x] Patient assessment and monitoring of vital signs [x] Documentation [x] Medication orders and management History Interval history: This is a 60-year-old male with diabetes mellitus, hypertension, hyperlipidemia, chronic renal insufficiency presents to the emergency department on 01/23 with shortness of breath, fevers chills, loss of smell and taste and body aches for the past 3 days via EMS. Per EMS patient's oxygen saturation on room air was 50% and after being placed on nonrebreather it increased 75%. Upon arrival to the emergency department patient was being bagged by EMS. In the emergency room patient was intubated due to severe hypoxia, increased work of breathing and lethargy. Patient was sedated on propofol and fentanyl. Patient presented with fever, tachycardia, tachypnea and acute hypoxic respiratory failure with PNA on CXR meeting Sepsis criteria. Lab work in the emergency department revealed hyponatremia, hypokalemia, hypochloremia, elevated CR/BUN and CXR showed bilateral pneumonia. Patient was admitted to the hospital service as a COVID-19 PUI with consults to infectious disease, nephrology and critical care medicine. 01/24/2021: Patient is intubated and sedated, patient is positive for COVID-19 infection. ID was consulted and put on dexamethasone and remdesivir. Patient has DEISI and nephrology is following. Creatinine stable, patient is urinating. Discussed with nephrology and he is okay with remdesivir. Pulmonary critical care is following for his vent setting. PEEP of 8 and FiO2 of 85%. Patient was alert and off sedatives. 01/25/2021; patient is intubated and on mechanical ventilation. Continue with treatment of Covid. Nephrology and ID is following. Pulmonary is following for vent management 01/26: Remains on mechanical ventilation and [facility] increased his PEEP. [facility] has ordered Precedex for sedation. Possibly need to prone this p.m. No acute events reported overnight. This morning his D-dimer is greater than 10,000 and we have started him on Lovenox 120 mg daily. Nutrition has been consulted for initiation of tube feedings. Patient remains sedated on propofol 40 and fentanyl for the time my examination this morning. 01/27: Continue Lovenox, remdesivir and empiric antibiotics. Patient had a T-max of 101 overnight. The time of examination patient is on CMV 500/18/14/0.61. Kidney function slightly worsened. Sedated on fentanyl ground-level fall and Precedex. Nephrology has increased IV fluids to 100 ml/hr. Continue to trend BMP and CBC. Sedation vacation attempt by RN this AM. 01/28: Patient completed antibiotics today [facility] will paralyze patient and increase sedation. PICC line ordered for possible vasopressor therapy need. Patient's D-dimer remains greater than 10,000 and he still has hyperchloremia. Patient's kidney function has improved today. May need to prone the patient if no improvement in oxygenation is noted in the next 24 hours. The time of my exa mination patient is sedated with propofol, fentanyl and Precedex and is on assist control 500/18/16/0.80 hypoxic on ABG on 60% FiO2. 01/29: Patient was started on Nimbex yesterday and his ABG this morning showed respiratory acidosis with hypercapnia and his respiratory rate was increased. We will obtain a repeat ABG this afternoon. This morning patient is hypernatremic, hyperkalemic and hyperchloremic. His potassium has been corrected with the management and will obtain repeat BMP tomorrow. His kidney functions have remained stable and we will await nephrology's input. No acute events reported overnight. This morning the time my examination patient sedated with propofol, Precedex and fentanyl and paralyzed with Nimbex. He is on assist control 500/24/16 0.80. 01/30: This morning patient is hypokalemic again and was given Kayexalate. Patient has hypernatremia and hyper chloremia and his renal function is slightly worse after receiving Lasix yesterday. His D-dimer remains greater than 10,000 and he is still on a paralytic. Patient is sedated on Precedex, fentanyl, propofol. Mechanical ventilation settings seven-point //28. [facility] has decided to continue paralytics for 48 more hours and will attempt proning the patient. Increased free water flushes 300 cc every 4 hours. Patient states has restarted his antibiotics cefepime and vancomycin and recultured. 01/31/21 Hyperkalemia, Treated 02/01/21 Hyperkalemia, Treated 02/02: Patient's kidney function continues to worsen and a stat BMP this morning shows BUN/creatinine 20/6.1 and he remains hypocalcemic and hypernatremic, hypokalemic and hypochloremic. Patient received 2 g of calcium gluconate and Kayexalate and his repeat potassium was 4.3 this afternoon. He remains antibiotic therapy and steroids. Nephrology has placed the patient on bicarb drip given metabolic acidosis and has decided to hold off hemodialysis till tomorrow.The time my examination patient is sedated on fentanyl, Precedex and on assist control 500/20/12/0.70. s/p paralytic. 02/03: Today patient's ABG shows respiratory acidosis however it is improving, hypernatremia, hyperchloremia, metabolic acidosis on BMP, worsening kidney function BUN/creatinine 130/9.2 with hyperphosphatemia. Patient received a Vas- Cath to his right IJ for initiation of dialysis. At the time of my examination patient remains sedated on fentanyl, propofol and Precedex with vasopressor support with Levophed at 2. 02/04: At the time of examination patient was on assist control tidal volume 500, rate 40, PEEP of 12, FiO2 85%. Patient had a T-max of 100.9 and infectious disease has stopped his vancomycin given negative MRSA. This afternoon patient respiked his temperature and was pancultured again. Patient was started on hemodialysis yesterday and will receive HD again today. Patient is sedated on Precedex, propofol, fentanyl and remains on Levophed. He is on assist control tidal volume 500, rate of 30, PEEP of 12, FiO2 of 85%. Patient still has some respiratory acidosis however his hypernatremia and hyperchloremia have improved and his metabolic acidosis has resolved. Patient will receive hemodialysis today 02/05: Patient continues to have low-grade fever temp this morning time examination he was on assist control tidal volume 500, and sedated on p ropofol/fentanyl/Precedex and is on Levophed. Hemodialysis per nephrology. Antibiotics per ID. Patient's blood culture from 02/04 grew gram-positive cocci in clusters in 1/2 bottles and he was started on vancomycin. 02/06: Patients ABG showed respiratory acidosis and the tracings were changed however a repeat ABG showed showed acidosis.[facility] will start a bicarb drip after giving 2 amps of bicarb push. Yesterday patient blood cultures grew gram- positive cocci and he was started on vancomycin. At the time my examination patient was on assist control tidal volume 550, rate 34, PEEP 16, FiO2 90% and sedated on fentanyl, Precedex, propofol elevated pressure support with Levophed. Bilateral lower extremity Doppler ultrasounds done yesterday showed no evidence of DVT/SVT. 02/07/2021; patient is still on the vent with PEEP of 16 and FiO2 of 90%, sedated with fentanyl Precedex and propofol. Patient still requiring Levophed. Patient was sedated yesterday and was given bicarb push. Blood culture grew gram-positive cocci in clusters and he is on vancomycin, will follow identification. 02/08/2021;patient is still on the vent with PEEP of 16 and FiO2 of 90%, sedated with fentanyl Precedex and propofol. Patient still requiring Levophed. Patient was sedated yesterday and was given bicarb push. Blood culture grew gram- positive cocci in clusters and he is on vancomycin, will follow identification. Patient is currently on dialysis. Patient is anemic transfuse if hemoglobin is below 7. 02/09: This morning patient has slight hypokalemia, hypochorlemia, hyponatremia and metabolic alkalosis. [facility] will continue bicarb gtt given that the patient does not have HD access at this time. We will replete the potassium and recheck BMP in the AM. We will type and cross in anticipation of PRBC transfusion. This morning he is sedated on Ativan, fentayl, and precedex. Will obtain a triglyceride level today in hopes to resume propofol. Patient is alkalotic and BMP however we will continue with bicarb drip per [facility] given that the patient does not have any access for hemodialysis. Anticipate replacing hemodialysis catheter tomorrow or Tuesday. The time my examination he is on AC TV 550, Rate 34, PeeP 16, FiO2 .65. 02/10: A.m. labs still pending, [facility] plans to replace HD catheter tomorrow as the patient is still febrile however his fever curve is trending down, remains on a bicarb drip and on vancomycin. Today at the time my examination patient was sedated on Precedex, Ativan and fentanyl and he is on assist control tidal 11/04/1951, rate 34, PEEP 16, FiO2 65%. Overnight patient was hypotensive and received 1 dose of midodrine. 02/11: Patient is still having low-grade temperatures that we will obtain a bilateral lower upper extremity venous Doppler ultrasound given that his repeat cultures have been negative so far. Patient received a Vas-Cath today for hemodialysis. The time examination patient is on assist control tidal volume 550, rate of 34, PEEP of 16 and FiO2 of 75%. Patient was hypokalemic and anemic yesterday which were both repleted with potassium and 1 unit PRBC. 02/12: 02/12: Patient had a 12-second run of V. tach today, his potassium and magnesium were low which was repleted. Renal adjusted potassium bath. We will obtain a triglyceride level in hopes to restarting to prevent as needed. This morning at the time my examination patient was sedated on fentanyl, Ativan and Precedex and remained on a bicarb drip. He was on assist control tidal volume 5 50, rate 34, PEEP 16, FiO2 85%. We will obtain a occult stool given no evident source of bleeding and need for transfusion. Anemia possibly due to hemodialysis. 02/13: Patient's T-max was 100.7, remains on fentanyl, Ativan, Precedex and bicarb drip this morning at some examination on assist control tidal volume 550, rate 34, PEEP 16 and FiO2 85%. On the labs this morning is slightly hypokalemic and remains metabolic alkalotic on BMP. His occult was positive. His Lovenox and consult GI. Patient received hemodialysis today. 02/14: cont PPI, GI recommended to scope now, monitor clinically, tolerating TF, remains intubated. Hb 6.9 today - transfuse another unit. very poor prognosis. 02/15: H&H appears to be stable following 1 unit of transfusion yesterday. Continue to hold heparin and aspirin products. Continue to monitor clinically. Poor prognosis. Wean off from vent as tolerated. 02/16: Infectious disease has signed off, his Ativan drip was discontinued and to prevent drip will be started when patient needs it. T-max 100.6 yesterday afternoon. He received hemodialysis today and at the time my examination was still on mechanical ventilation assist control tidal volume 550, rate 34, PEEP 16 on 70% FiO2. Patient was sedated on fentanyl dexamethasone and Ativan. No acute events reported overnight. 02/17: This morning patient was scheduled to get 2 units PRBC however his repeat H/H after 1 unit PRBC was 7.6/22.8 and the width of the second unit PRBC. This morning patient was sedated on fentanyl, propofol, Precedex and on assist control tolerated by 50, rate 34, PEEP of 16, FiO2 35%. Wound care was consulted today for his upper lip wound. Nephrology continues to withhold dialysis. No acute events reported overnight. Dr. Adkins was unable to contact family for updates. 02/18: Family updated by Dr. Adkins and Dr. Reddy. Patient had a hemodialysis today. The time my examination patient was on assist control tidal volume 550, rate 34, PEEP 16 and FiO2 35%. Overnight patient had a CT head and he was placed on 3% FiO2 and took "a long time to recover" per RN report. 02/19: Patient's D-dimer is trending up therefore he was started on prophylactic anticoagulation, no bowel movement for several days so he was started on mag citrate today. The time examination patient is sedated on Precedex 1.2, fentanyl 3, propofol 20 on assist control tidal volume 550, rate 34, PEEP 16, 80% FiO2 and on his ABG his PaO2 is 106. RT will try to wean as tolerated. Repeat COVID-19 PCR today was positive.Dr. Adkins updated the family today. 02/20: Patient received hemodialysis today. In the time my examination patient was sedated on Precedex, fentanyl, propofol and on assist control tidal line 550, rate 34, PEEP of 16 and 75% FiO2. Patient had a bowel movement yesterday. 02/21 no new concerns at this time afebrile Hospital course remains uncomplicat ed. 02/22. Hospital course complicated by an episode of ectopy over the p.m. Patient required Levophed for blood pressure control. Remains intubated sedated. Tolerated hemodialysis yesterday. 02/23: At the time my examination patient is on assist control tidal volume 550, rate 34, PEEP 16, FiO2 70% and is not sedated. Patient does not follow commands however his eyes open spontaneously and he does not track/focus. Hospitalist Physical - Constitutional Vitals: Temp Pulse Resp BP Pulse Ox 98.4 F 102 H 33 H 154/80 87 02/23/21 16:00 02/23/21 15:00 02/23/21 15:00 02/23/21 15:00 02/23/21 15:00 General appearance: Present: no acute distress - EENT Eyes: Present: PERRL ENT: poor dentition - Neck Neck: Absent: masses or JVD, cervical LAD - Respiratory Respiratory effort: normal Respiratory: bilateral: diminished, rhonchi - Cardiovascular Rhythm: regular Heart Sounds: Present: S1 & S2. Absent: systolic murmur, diastolic murmur - Extremities Extremities: no ischemia, pulses intact, pulses symmetrical, normal temperature, normal color Extremity abnormal: edema Peripheral Pulses: within normal limits - Abdominal General gastrointestinal: soft, non-tender, non-distended, normal bowel sounds - Integumentary Integumentary: Present: warm, dry - Psychiatric Psychiatric: other (Not interactive) - Neurologic Neurologic: other (Does not follow commands, does not track/focus) - Allied Health Allied health notes reviewed: nursing, RT, social work HEART Score - HEART Score Risk factors: 1-2 risk factors Troponin: < normal limit - Critical Actions Critical Actions: 0-3 pts:0.9-1.7%risk of adverse cardiac event.Candidate for discharge Results - Labs CBC & Chem 7: 02/22/21 09:41 02/23/21 06:20 Labs: Laboratory Last Values WBC 13.2 K/mm3 (4.5-11.0) H 02/22/21 09:41 RBC 2.35 M/mm3 (3.65-5.03) L 02/22/21 09:41 Hgb 7.5 gm/dl (11.8-15.2) L 02/22/21 09:41 Hct 22.7 % (35.5-45.6) L 02/22/21 09:41 MCV 96 fl (84-94) H 02/22/21 09:41 MCH 32 pg (28-32) 02/22/21 09:41 MCHC 33 % (32-34) 02/22/21 09:41 RDW 17.0 % (13.2-15.2) H 02/22/21 09:41 Plt Count 346 K/mm3 (140-440) 02/22/21 09:41 Lymph % (Auto) 11.0 % (13.4-35.0) L 02/15/21 05:00 [place] % (Auto) 4.2 % (0.0-7.3) 02/15/21 05:00 Eos % (Auto) 1.2 % (0.0-4.3) 02/15/21 05:00 Baso % (Auto) 0.6 % (0.0-1.8) 02/15/21 05:00 Lymph # (Auto) 1.1 K/mm3 (1.2-5.4) L 02/15/21 05:00 [place] # (Auto) 0.4 K/mm3 (0.0-0.8) 02/15/21 05:00 Eos # (Auto) 0.1 K/mm3 (0.0-0.4) 02/15/21 05:00 Baso # (Auto) 0.1 K/mm3 (0.0-0.1) 02/15/21 05:00 Add Manual Diff Complete 02/22/21 09:41 Total Counted 100 02/22/21 09:41 Seg Neutrophils % 83.0 % (40.0-70.0) H 02/15/21 05:00 Seg Neuts % (Manual) 93.0 % (40.0-70.0) H 02/22/21 09:41 Band Neutrophils % 2.0 % 02/16/21 Unknown Lymphocytes % (Manual) 4.0 % (13.4-35.0) L 02/22/21 09:41 Reactive Lymphs % (Man) 1.0 % 01/27/21 05:29 Monocytes % (Manual) 3.0 % (0.0-7.3) 02/22/21 09:41 Eosinophils % (Manual) 1.0 % (0.0-4.3) 02/16/21 Unknown Basophils % (Manual) 1.0 % (0.0-1.8) 02/06/21 Unknown Metamyelocytes % 1.0 % 02/16/21 Unknown Nucleated RBC % 1.0 % (0.0-0.9) H 02/22/21 09:41 Seg Neutrophils # 8.6 K/mm3 (1.8-7.7) H 02/15/21 05:00 Seg Neutrophils # Man 12.3 K/mm3 (1.8-7.7) H 02/22/21 09:41 Band Neutrophils # 0.0 K/mm3 02/22/21 09:41 Lymphocytes # (Manual) 0.5 K/mm3 (1.2-5.4) L 02/22/21 09:41 Abs React Lymphs (Man) 0.0 K/mm3 02/22/21 09:41 Monocytes # (Manual) 0.4 K/mm3 (0.0-0.8) 02/22/21 09:41 Eosinophils # (Manual) 0.0 K/mm3 (0.0-0.4) 02/22/21 09:41 Basophils # (Manual) 0.0 K/mm3 (0.0-0.1) 02/22/21 09:41 Metamyelocytes # 0.0 K/mm3 02/22/21 09:41 Myelocytes # 0.0 K/mm3 02/22/21 09:41 Promyelocytes # 0.0 K/mm3 02/22/21 09:41 Blast Cells # 0.0 K/mm3 02/22/21 09:41 WBC Morphology Not Reportable 02/22/21 09:41 Hypersegmented Neuts Not Reportable 02/22/21 09:41 Hyposegmented Neuts Not Reportable 02/22/21 09:41 Hypogranular Neuts Not Reportable 02/22/21 09:41 Smudge Cells Not Reportable 02/22/21 09:41 Toxic Granulation Not Reportable 02/22/21 09:41 Toxic Vacuolation Not Reportable 02/22/21 09:41 Dohle Bodies Not Reportable 02/22/21 09:41 Pelger-Huet Anomaly Not Reportable 02/22/21 09:41 Fátima Rods Not Reportable 02/22/21 09:41 Platelet Estimate Consistent w auto 02/22/21 09:41 Clumped Platelets Not Reportable 02/22/21 09:41 Plt Clumps, EDTA Not Reportable 02/22/21 09:41 Large Platelets Not Reportable 02/22/21 09:41 Giant Platelets Not Reportable 02/22/21 09:41 Platelet Satelliting Not Reportable 02/22/21 09:41 Plt Morphology Comment Not Reportable 02/22/21 09:41 RBC Morphology Not Reportable 02/22/21 09:41 Dimorphic RBCs Not Reportable 02/22/21 09:41 Polychromasia Not Reportable 02/22/21 09:41 Hypochromasia Not Reportable 02/22/21 09:41 Poikilocytosis Not Reportable 02/22/21 09:41 Anisocytosis Not Reportable 02/22/21 09:41 Microcytosis Not Reportable 02/22/21 09:41 Macrocytosis Rare 02/22/21 09:41 Spherocytes Not Reportable 02/22/21 09:41 Pappenheimer Bodies Not Reportable 02/22/21 09:41 Sickle Cells Not Reportable 02/22/21 09:41 Target Cells Not Reportable 02/22/21 09:41 Tear Drop Cells Not Reportable 02/22/21 09:41 Ovalocytes Not Reportable 02/22/21 09:41 Helmet Cells Not Reportable 02/22/21 09:41 Potter-Whitakers Bodies Not Reportable 02/22/21 09:41 [place] Rings Not Reportable 02/22/21 09:41 Boyds Cells Not Reportable 02/22/21 09:41 Bite Cells Not Reportable 02/22/21 09:41 Crenated Cell Not Reportable 02/22/21 09:41 Elliptocytes Not Reportable 02/22/21 09:41 Acanthocytes (Spur) Not Reportable 02/22/21 09:41 Rouleaux Not Reportable 02/22/21 09:41 Hemoglobin C Crystals Not Reportable 02/22/21 09:41 Schistocytes Not Reportable 02/22/21 09:41 Malaria parasites Not Reportable 02/22/21 09:41 Aquiles Bodies Not Reportable 02/22/21 09:41 Hem Pathologist Commnt No 02/22/21 09:41 PT 14.9 Sec. (12.2-14.9) 02/11/21 08:27 INR 1.17 (0.87-1.13) H 02/11/21 08:27 D-Dimer 4840.82 ng/mlDDU (0-234) H 02/19/21 05:45 ABG pH 7.246 pH Units (7.350-7.450) L 02/23/21 04:00 POC ABG pCO2 60.1 mmHg (32.0-48.0) H 02/22/21 04:22 ABG pCO2 62.7 mm Hg 02/23/21 04:00 POC ABG pO2 57.6 mmHg (83-108) L 02/22/21 04:22 ABG pO2 119.4 mm Hg (80.0-90.0) H 02/23/21 04:00 POC ABG HCO3 25.8 02/22/21 04:22 ABG HCO3 26.6 mmol/L (20.0-26.0) H 02/23/21 04:00 ABG O2 Saturation 97.7 % (95.0-99.0) 02/23/21 04:00 ABG O2 Content 12.0 (0.0-44) 02/23/21 04:00 POC ABG Base Excess -1.8 02/22/21 04:22 ABG Base Excess -1.2 mmol/L (-2.0-3.0) 02/23/21 04:00 ABG Hemoglobin 8.8 gm/dl (14.0-18.0) L 02/23/21 04:00 ABG Oxyhemoglobin 87.0 (94-98) L 02/22/21 04:22 ABG Carboxyhemoglobin 1.8 % (0.0-5.0) 02/23/21 04:00 ABG Methemoglobin 0.7 % (0.0-1.5) 02/23/21 04:00 ABG Sodium 133.4 mmol/L (136.0-145.0) L 02/22/21 04:22 ABG Potassium 5.1 mmol/L (3.40-4.50) H 02/22/21 04:22 ABG Chloride 101.0 mmol/L (98-107) 02/22/21 04:22 ABG Glucose 124 mg/dL (65-95) H 02/22/21 04:22 Oxyhemoglobin 95.4 % (95.0-99.0) 02/23/21 04:00 Carboxyhemoglobin 1.1 (0.5-1.5) 02/22/21 04:22 FiO2 70 % 02/23/21 04:00 FiO2 % 80.0 02/22/21 04:22 Sodium 139 mmol/L (137-145) 02/23/21 06:20 Potassium 4.3 mmol/L (3.6-5.0) D 02/23/21 06:20 Chloride 97.6 mmol/L (98-107) L 02/23/21 06:20 Carbon Dioxide 27 mmol/L (22-30) 02/23/21 06:20 Anion Gap 19 mmol/L 02/23/21 06:20 BUN 79 mg/dL (9-20) H 02/23/21 06:20 Creatinine 6.2 mg/dL (0.8-1.3) H 02/23/21 06:20 Estimated GFR 11 ml/min 02/23/21 06:20 BUN/Creatinine Ratio 13 % 02/23/21 06:20 Glucose 100 mg/dL (75-100) 02/23/21 06:20 POC Glucose 108 mg/dL (70-105) H 02/23/21 11:42 Hemoglobin A1c 6.3 % (4-6) H 02/02/21 16:00 Lactic Acid 1.90 mmol/L (0.7-2.0) 01/24/21 14:38 Calcium 8.3 mg/dL (8.4-10.2) L 02/23/21 06:20 Phosphorus 7.90 mg/dL (2.5-4.5) H 02/21/21 16:35 Magnesium 2.60 mg/dL (1.7-2.3) H 02/21/21 16:35 Ferritin 951.8 ng/mL (30.0-300.0) H 02/19/21 05:45 Total Bilirubin 1.50 mg/dL (0.1-1.2) H 01/26/21 05:47 AST 37 units/L (5-40) 01/26/21 05:47 ALT 29 units/L (7-56) 01/26/21 05:47 Alkaline Phosphatase 70 units/L (35-129) 01/26/21 05:47 Lactate Dehydrogenase 345 units/L (91-180) H 02/19/21 05:45 C-Reactive Protein 15.20 mg/dL (0.00-1.30) H 02/19/21 05:45 Total Protein 7.2 g/dL (6.3-8.2) 01/26/21 05:47 Albumin 2.2 g/dL (3.9-5) L 01/26/21 05:47 Albumin/Globulin Ratio 0.4 % 01/26/21 05:47 Triglycerides 195 mg/dL (2-149) H 02/19/21 05:45 Procalcitonin 18.94 ng/mL (<0.15) 02/16/21 17:09 Arterial Blood Glucose 124 mg/dL (65-95) H 02/22/21 04:22 Arterial Blood Ionized Calcium 4.6 mg/dL (4.6-5.3) 02/22/21 04:22 Urine Color Nehal (Yellow) 01/22/21 22:39 Urine Turbidity Cloudy (Clear) 01/22/21 22:39 Urine pH 5.0 (5.0-7.0) 01/22/21 22:39 Ur Specific [place] 1.017 (1.003-1.030) 01/22/21 22:39 Urine Protein 100 mg/dl mg/dL (Negative) 01/22/21 22:39 Urine Glucose (UA) Neg mg/dL (Negative) 01/22/21 22:39 Urine Ketones Neg mg/dL (Negative) 01/22/21 22:39 Urine Blood Mod (Negative) 01/22/21 22:39 Urine Nitrite Neg (Negative) 01/22/21 22:39 Urine Bilirubin Neg (Negative) 01/22/21 22:39 Urine Urobilinogen 2.0 mg/dL (<2.0) 01/22/21 22:39 Ur Leukocyte Esterase Mod (Negative) 01/22/21 22:39 Urine WBC (Auto) < 1.0 /HPF (0.0-6.0) 01/22/21 22:39 Urine RBC (Auto) < 1.0 /HPF (0.0-6.0) 01/22/21 22:39 U Epithel Cells (Auto) < 1.0 /HPF (0-13.0) 01/22/21 22:39 Urine Osmolality 416 Mosm/kg 01/30/21 12:15 Urine Total Volume 2300 ml 01/30/21 12:00 Urine Creatinine 53.0 mg/dL (0.1-20.0) H 01/30/21 12:00 Ur Creatinine 24 Hour 1.2 (0.8-2.8) 01/30/21 12:00 Urine Sodium 28 mmol/L 01/22/21 22:39 Nasal Screen MRSA (PCR) Negative (Negative) 02/02/21 13:20 Random Vancomycin 13.7 ug/mL (0-40.0) 02/07/21 10:40 Coronavirus (PCR) Positive (Negative) A 02/18/21 10:00 Hepatitis A IgM Ab Non-reactive (NonReactive) 02/03/21 Unknown Hep Bs Antigen Non-reactive (Negative) 02/03/21 Unknown Hep B Core IgM Ab Non-reactive (NonReactive) 02/03/21 Unknown Hepatitis C Antibody Non-reactive (NonReactive) 02/03/21 Unknown Blood Type B POSITIVE 02/17/21 07:45 Antibody Screen Negative 02/17/21 07:45 Crossmatch See Detail 02/17/21 07:45 Black/IV: Voiding Method Incontinent Active Medications - Current Medications Current Medications: Generic Name Dose Route Start Last Admin Trade Name Freq PRN Reason Stop Dose Admin Acetaminophen 650 mg 01/24/21 12:58 02/15/21 18:06 Acetaminophen 325 Mg/10.15 Ml Oral Liqd Unit Dose FEEDTUBE 650 mg Q6H PRN Administration Pain, Mild (1-3) Lipase/Protease/Amylase 1 each 01/26/21 14:25 Lipase 10,500/Protease 25,000/Amylase 43,750 (Units) Dr Cap FEEDTUBE PRN PRN For Clogged Feeding Tube Dextrose 50 ml 01/27/21 07:24 Dextrose 50% In Water (25gm) 50 Ml Syringe IV Q30MIN PRN Hypoglycemia Protocol Fentanyl 50 mcg 01/22/21 22:39 02/10/21 13:46 Fentanyl 100 Mcg/2 Ml Inj IV 50 mcg Q10MIN PRN Administration ANALGESIA Heparin Sodium (Porcine) 2,000 unit 02/11/21 09:38 02/21/21 21:25 Heparin 10,000 Units/10 Ml Vial IV 2,000 unit SAGRARIO PRN Administration hemodialysis Heparin Sodium (Porcine) 5,000 unit 02/19/21 14:00 02/23/21 14:28 Heparin 5,000 Unit/1 Ml Vial SUB-Q 5,000 unit Q8HR CECE Administration Fentanyl Citrate 2,000 mcg in 100 mls @ 6.124 mls/hr 01/22/21 23:00 02/21/21 16:00 Fentanyl Drip Premix IV 0 mcg/kg/hr TITR CECE 0 mls/hr Titration Protocol 1 MCG/KG/HR Propofol 1,000 mg in 100 mls @ 3.674 mls/hr 01/22/21 23:45 02/21/21 08:30 Diprivan 10 Mg/Ml IV 0 mcg/kg/min TITR CECE 0 mls/hr Titration Protocol 5 MCG/KG/MIN Norepinephrine 4 mg in 250 mls @ 7.5 mls/hr 01/28/21 14:00 02/22/21 18:27 Levophed Drip 4 Mg/Ns 250 Ml IV 0 mcg/min TITR CECE 0 mls/hr Titration Protocol 2 MCG/MIN Dexmedetomidine HCl 1,000 mcg/ 260 mls @ 6.368 mls/hr 01/30/21 20:00 02/21/21 12:23 Sodium Chloride IV Infused TITRATE CECE Titration Protocol 0.2 MCG/KG/HR Sodium Chloride 100 mls @ 999 mls/hr 02/22/21 13:43 Nacl 0.9% IV SAGRARIO PRN Hypotension Lansoprazole 30 mg 02/18/21 10:00 02/23/21 09:56 Lansoprazole 30 Mg Solutab FEEDTUBE 30 mg QDAY CECE Administration Senna/Docusate Sodium 2 tab 02/17/21 11:00 02/23/21 14:28 Sennosides/Docusate Sodium 8.6/50 Mg Tab PO Not Given TID CECE Simple Syrup 15 ml 01/26/21 14:25 02/21/21 21:24 Simple Syrup 15 Ml FEEDTUBE 15 ml PRN PRN Administration Hypoglycemia Simple Syrup 30 ml 01/26/21 14:25 Simple Syrup 15 Ml FEEDTUBE PRN PRN Hypoglycemia Sodium Bicarbonate 325 mg 01/26/21 14:25 Sodium Bicarbonate 325 Mg Tab FEEDTUBE PRN PRN For Clogged Feeding Tube Nutrition/Malnutrition Assess - Dietary Evaluation Nutrition/Malnutrition Findings: Nutrition Notes Start: 01/26/21 13:59 Freq: Status: Active Protocol: Document 02/19/21 13:29 CW (Rec: 02/19/21 13:34 CW [id number]) Nutrition Notes Initial or Follow up Reassessment Current Diagnosis Acute Kidney Injury,Diabetes, Sepsis,Hypertension, Respiratory Failure, Hyperlipidemia Other Pertinent Diagnosis on HD, COVID-19 (+), bilat pneu Current Diet TF - Nepro at 36 ml/hr Labs/Tests Na 135 BUN 58 Cr 5.6 Pertinent Medications propofol at 11.022 (provided 291 kcal) Senna Mg Citrate Height 5 ft 8 in Weight 162 kg [place] Body Weight (kg) 70.00 BMI 54.3 Weight change and time frame wt stable Weight Status Morbidly Obese Subjective/Other Information F/U for Na labs and TF tolerance. Pt continues to tolerate TF regimen at goal. Pt continues to not have a BM. RN treating with Rx. Pt remains of mechanical vent. Percent of energy/protein needs met: 80%/61% Burn Absent Trauma Absent GI Symptoms Constipation Difficulty In Swallowing Skin Integrity/Comment pressure ulcer to lips Current % PO Negligible Minimum of two criteria No Fluid Accumulation Moderate to Severe (severe) #2 Nutrition Diagnosis Increased nutrient needs ( specify in comment below) Comments: protein Diagnosis Progress(for reassessment Continues documentation) #1 Nutrition Diagnosis Inadequate oral intake Diagnosis Progress(for reassessment Continues documentation) Is patient on ventilator? Yes Is Patient Ambulatory and/or Out of Bed No REE-([place]-[facility]. Jeor-confined to bed) 2877.408 Kcal/Kg value to use for calculation 12 Approximate Energy Requirements Using 1944 kcal/Kg Calculation Used for Recommendations Kcal/kg Additional Notes Pro needs >1.2g/kg adjBW: > 115g/day for HD needs Fluid needs 500+ total output or per MD Nutrition Intervention Change Diet Order: Continue TF Nutrition Support: Nepro at 46 ml/hr with a free water flush of 125 ml q4h for hyponatremia. Resume flush of 200 ml q4h once hyponatremia resolved. Kcal 1,987 Protein (gm) 89 Fluid (mL) 803 Goal #1 TF tolerance Goal #2 TF to meet at least 75% energy and pro needs Anticipated Discharge Needs: unable to determine at this time Follow-Up By: 02/24/21 Additional Comments F/U for TF tolerance
[2021-02-24 05:25] LABS: Hematocrit 23.5 % (35.5-45.6); Hemoglobin 7.7 gm/dl (11.8-15.2); Mean Corpuscular HGB Conc 33 % (32-34); Mean Corpuscular Volume 95 fl (84-94); Platelet Count 410 K/mm3 (140-440); Red Blood Count 2.47 M/mm3 (3.65-5.03); Red Cell Distribution Width 16.7 % (13.2-15.2)
[2021-02-24 05:56] LABS: C-Reactive Protein 7.2 mg/dL (0.00-1.30); Calcium 8.6 mg/dL (8.4-10.2)
[2021-02-24 06:25] LABS: Anisocytosis 1+; Total Cells Counted 100
[2021-02-24 06:26] LABS: Platelet Estimate Consistent w Auto
[2021-02-24] MEDS: SENNOSIDES/DOCUSATE SODIUM 8.6/50 MG TAB PO SCH ×3 (07:59→21:26)
[2021-02-24] MEDS: LANSOPRAZOLE 30 MG SOLUTAB FEEDTUBE SCH (10:26)
--- NOTE | 2021-02-24 11:48 | Consultation ---
History of Present Illness Consult date: 02/24/21 Reason for Consult: change in mentation History of present illness: This is a 60-year-old male with diabetes mellitus, hypertension, hyperlipidemia, chronic renal insufficiency presents to the emergency department on 01/23 with shortness of breath, fevers chills, loss of smell and taste and body aches for the past 3 days via EMS. Per EMS patient's oxygen saturation on room air was 50% and after being placed on nonrebreather it increased 75%. Upon arrival to the emergency department patient was being bagged by EMS. In the emergency room patient was intubated due to severe hypoxia, increased work of breathing and lethargy. Patient was sedated on propofol and fentanyl{ off sedation for 2 days} Patient presented with fever, tachycardia, tachypnea and acute hypoxic respiratory failure with PNA on CXR meeting Sepsis criteria. Lab work in the emergency department revealed hyponatremia, hypokalemia, hypochloremia, elevated CR/BUN and CXR showed bilateral pneumonia. Patient was admitted to the hospital service as a COVID-19 PUI with consults to infectious disease, nephrology and critical care medicine. Neurology is asked to see pt. due to intubation off sedation but still not follow command Labs remarkable for BUN/Cr. 68/4.9--- had hemodialysis 02/20 Ct [facility] 02/17 is unremarkable Past History Past Medical History: diabetes, hypertension, hyperlipidemia, renal failure, other (HIDRADENTIS) Past Surgical History: Other (HIDRADENITIS) Social history: no significant social history Family history: no significant family history Review of Systems Constitutional: fever, chills, weakness, poor appetite, no sweats, no night sweats Eyes: bilateral: other (NO BILATERAL EYE SYMPTOMS) Ears, nose, mouth and throat: no ear pain Cardiovascular: shortness of breath, dyspnea on exertion, no chest pain, no palpitations, no syncope, no lightheadedness Respiratory: cough, shortness of breath, dyspnea on exertion, no congestion, no wheezing Gastrointestinal: no abdominal pain, no nausea, no vomiting, no constipation, no change in bowel habits, no hematemesis Genitourinary Male: no dysuria, no hematuria Rectal: no pain Musculoskeletal: no neck stiffness, no neck pain Integumentary: no rash, no pruritis, no redness, no sores Neurological: weakness, no paralysis, no numbness, no seizures, no syncope, no vertigo, no headaches, no convulsions, no change in speech, no change in mentation Psychiatric: no anxiety, no suicidal ideation, no depression, no confusion Endocrine: no polydipsia, no polyuria, no nocturia Hematologic/Lymphatic: no easy bruising, no lymphadenopathy Past History Past Medical History: diabetes, hypertension, hyperlipidemia, renal failure, other (HIDRADENTIS) Past Surgical History: Other (HIDRADENITIS) Social history: no significant social history Family history: no significant family history Medications and Allergies Allergies Allergy/AdvReac Type Severity Reaction Status Date / Time No Known Allergies Allergy Unverified 03/12/20 13:41 Home Medications Medication Instructions Recorded Confirmed Last Taken Type Insulin NPH/Regular [Novolin 70/30] 18 unit SUB-Q TIDAC #1 vial 03/12/20 Unknown Rx Syringe-Needle,Insulin,0.5 ml 1 box MC TID #1 box 03/12/20 Unknown Rx [Insulin Syringe/Needle 0.5 ML] Active Meds: Active Medications Acetaminophen (Acetaminophen 325 Mg/10.15 Ml Oral Liqd Unit Dose) 650 mg FEEDTUBE Q6H PRN PRN Reason: Pain, Mild (1-3) Last Admin: 02/15/21 18:06 Dose: 650 mg Documented by: Lipase/Protease/Amylase (Lipase 10,500/Protease 25,000/Amylase 43,750 (Units) Dr Cap) 1 each FEEDTUBE PRN PRN PRN Reason: For Clogged Feeding Tube Dextrose (Dextrose 50% In Water (25gm) 50 Ml Syringe) 50 ml IV Q30MIN PRN; Protocol PRN Reason: Hypoglycemia Fentanyl (Fentanyl 100 Mcg/2 Ml Inj) 50 mcg IV Q10MIN PRN PRN Reason: ANALGESIA Last Admin: 02/10/21 13:46 Dose: 50 mcg Documented by: Heparin Sodium (Porcine) (Heparin 10,000 Units/10 Ml Vial) 2,000 unit IV SAGRARIO PRN PRN Reason: hemodialysis Last Admin: 02/21/21 21:25 Dose: 2,000 unit Documented by: Heparin Sodium (Porcine) (Heparin 5,000 Unit/1 Ml Vial) 5,000 unit SUB-Q Q8HR CECE Last Admin: 02/23/21 21:08 Dose: 5,000 unit Documented by: Fentanyl Citrate (Fentanyl Drip Premix) 2,000 mcg in 100 mls @ 6.124 mls/hr IV TITR CECE; Protocol Last Titration: 02/21/21 16:00 Dose: 0 mcg/kg/hr, 0 mls/hr Documented by: Propofol (Diprivan 10 Mg/Ml) 1,000 mg in 100 mls @ 3.674 mls/hr IV TITR CECE; Protocol Last Titration: 02/21/21 08:30 Dose: 0 mcg/kg/min, 0 mls/hr Documented by: Norepinephrine (Levophed Drip 4 Mg/Ns 250 Ml) 4 mg in 250 mls @ 7.5 mls/hr IV TITR CECE; Protocol Last Titration: 02/22/21 18:27 Dose: 0 mcg/min, 0 mls/hr Documented by: Dexmedetomidine HCl 1,000 mcg/ (Sodium Chloride) 260 mls @ 6.368 mls/hr IV TITRATE CECE; Protocol Last Titration: 02/21/21 12:23 Dose: Infused Documented by: Sodium Chloride (Nacl 0.9%) 100 mls @ 999 mls/hr IV S[place]IO PRN PRN Reason: Hypotension Lansoprazole (Lansoprazole 30 Mg Solutab) 30 mg FEEDTUBE QDAY [facility] Last Admin: 02/24/21 10:26 Dose: 30 mg Documented by: Senna/Docusate Sodium (Sennosides/Docusate Sodium 8.6/50 Mg Tab) 2 tab PO TID [facility] Last Admin: 02/24/21 07:59 Dose: Not Given Documented by: Simple Syrup (Simple Syrup 15 Ml) 15 ml FEEDTUBE PRN PRN PRN Reason: Hypoglycemia Last Admin: 02/21/21 21:24 Dose: 15 ml Documented by: Simple Syrup (Simple Syrup 15 Ml) 30 ml FEEDTUBE PRN PRN PRN Reason: Hypoglycemia Sodium Bicarbonate (Sodium Bicarbonate 325 Mg Tab) 325 mg FEEDTUBE PRN PRN PRN Reason: For Clogged Feeding Tube Physical Examination - Vital Signs Vital Signs: Vital Signs Temp Pulse Resp BP Pulse Ox 99 F 109 H 47 H 123/67 83 L 01/22/21 22:29 01/22/21 22:29 01/22/21 22:29 01/22/21 22:29 01/22/21 22:29 - Constitutional General appearance: comfortable (intubated off sedation), other (comf) - EENT EENT: Present: PERRL, mucous membranes moist - Respiratory Respiratory: Present: decreased breath sounds, rhonchi - Cardiovascular Cardiovascular: Present: normal S1, normal S2 Extremities: Present: non-pitting edema - Gastrointestinal Gastrointestinal: Present: normoactive bowel sounds - Integumentary Integumentary: Present: normal - Neurologic Cranial nerve examination: PERRL, intact, other (eyes are deviated to left EOM limited no corneal no gag reflex ) - Additional Exam Additional Exam: pt. is unresponsive no movment to stimuli planter is equivical Results - Laboratory Findings CBC and BMP: 02/24/21 04:25 02/24/21 04:25 Abnormal Lab Findings: Abnormal Labs 01/22/21 01/22/21 01/22/21 22:39 22:57 22:57 WBC RBC Hgb Hct MCV MCH MCHC RDW Plt Count Lymph % (Auto) 6.6 L Lymph # (Auto) 0.5 L Seg Neutrophils % 87.6 H Seg Neuts % (Manual) Lymphocytes % (Manual) Monocytes % (Manual) Nucleated RBC % Seg Neutrophils # Seg Neutrophils # Man Lymphocytes # (Manual) Monocytes # (Manual) Eosinophils # (Manual) INR D-Dimer ABG pH POC ABG pCO2 POC ABG pO2 ABG pO2 ABG HCO3 ABG O2 Saturation ABG Base Excess ABG Hemoglobin ABG Oxyhemoglobin ABG Sodium ABG Potassium ABG Chloride ABG Glucose Oxyhemoglobin Carboxyhemoglobin Sodium 129 L Potassium 3.4 L Chloride 90.4 L Carbon Dioxide BUN 34 H Creatinine 1.5 H Glucose 146 H POC Glucose Hemoglobin A1c Lactic Acid Calcium 7.8 L Phosphorus Magnesium Ferritin Total Bilirubin AST 75 H ALT 57 H Lactate Dehydrogenase C-Reactive Protein Albumin 2.9 L Triglycerides Arterial Blood Glucose Arterial Blood Ionized Calcium Urine Creatinine 301.2 H Coronavirus (PCR) Crossmatch 01/22/21 01/22/21 01/22/21 22:57 22:57 22:57 WBC RBC Hgb Hct MCV MCH MCHC RDW Plt Count Lymph % (Auto) Lymph # (Auto) Seg Neutrophils % Seg Neuts % (Manual) Lymphocytes % (Manual) Monocytes % (Manual) Nucleated RBC % Seg Neutrophils # Seg Neutrophils # Man Lymphocytes # (Manual) Monocytes # (Manual) Eosinophils # (Manual) INR D-Dimer 1173.89 H ABG pH POC ABG pCO2 POC ABG pO2 ABG pO2 ABG HCO3 ABG O2 Saturation ABG Base Excess ABG Hemoglobin ABG Oxyhemoglobin ABG Sodium ABG Potassium ABG Chloride ABG Glucose Oxyhemoglobin Carboxyhemoglobin Sodium Potassium Chloride Carbon Dioxide BUN Creatinine Glucose 149 H POC Glucose Hemoglobin A1c Lactic Acid 2.10 H* Calcium Phosphorus Magnesium Ferritin Total Bilirubin AST ALT Lactate Dehydrogenase 685 H C-Reactive Protein 30.40 H Albumin Triglycerides Arterial Blood Glucose Arterial Blood Ionized Calcium Urine Creatinine Coronavirus (PCR) Crossmatch 01/22/21 01/23/21 01/23/21 22:57 08:41 10:01 WBC RBC Hgb Hct MCV MCH MCHC RDW Plt Count Lymph % (Auto) Lymph # (Auto) Seg Neutrophils % Seg Neuts % (Manual) Lymphocytes % (Manual) Monocytes % (Manual) Nucleated RBC % Seg Neutrophils # Seg Neutrophils # Man Lymphocytes # (Manual) Monocytes # (Manual) Eosinophils # (Manual) INR D-Dimer ABG pH POC ABG pCO2 POC ABG pO2 ABG pO2 ABG HCO3 ABG O2 Saturation ABG Base Excess ABG Hemoglobin ABG Oxyhemoglobin ABG Sodium ABG Potassium ABG Chloride ABG Glucose Oxyhemoglobin Carboxyhemoglobin Sodium 131 L Potassium Chloride 88.7 L Carbon Dioxide 18 L BUN 36 H Creatinine 1.6 H Glucose 147 H POC Glucose Hemoglobin A1c Lactic Acid Calcium 7.5 L Phosphorus Magnesium Ferritin 1207.0 H Total Bilirubin AST ALT Lactate Dehydrogenase C-Reactive Protein Albumin Triglycerides Arterial Blood Glucose Arterial Blood Ionized Calcium Urine Creatinine Coronavirus (PCR) Positive A Crossmatch 01/23/21 01/23/21 01/24/21 20:49 Unknown 00:10 WBC RBC Hgb Hct MCV MCH MCHC RDW Plt Count Lymph % (Auto) Lymph # (Auto) Seg Neutrophils % Seg Neuts % (Manual) Lymphocytes % (Manual) Monocytes % (Manual) Nucleated RBC % Seg Neutrophils # Seg Neutrophils # Man Lymphocytes # (Manual) Monocytes # (Manual) Eosinophils # (Manual) INR D-Dimer ABG pH POC ABG pCO2 POC ABG pO2 ABG pO2 165.4 H ABG HCO3 ABG O2 Saturation ABG Base Excess -2.5 L ABG Hemoglobin ABG Oxyhemoglobin ABG Sodium ABG Potassium ABG Chloride ABG Glucose Oxyhemoglobin Carboxyhemoglobin Sodium 130 L Potassium Chloride 91.0 L Carbon Dioxide 20 L BUN 52 H Creatinine 3.8 H D Glucose 150 H POC Glucose 125 H Hemoglobin A1c Lactic Acid Calcium 8.0 L Phosphorus Magnesium Ferritin Total Bilirubin AST 42 H ALT Lactate Dehydrogenase C-Reactive Protein Albumin 2.4 L Triglycerides Arterial Blood Glucose Arterial Blood Ionized Calcium Urine Creatinine Coronavirus (PCR) Crossmatch 01/24/21 01/24/21 01/24/21 05:05 05:05 05:05 WBC 14.0 H RBC Hgb Hct MCV 95 H MCH 33 H MCHC RDW Plt Count Lymph % (Auto) Lymph # (Auto) Seg Neutrophils % Seg Neuts % (Manual) 91.0 H Lymphocytes % (Manual) 4.0 L Monocytes % (Manual) Nucleated RBC % Seg Neutrophils # Seg Neutrophils # Man 12.7 H Lymphocytes # (Manual) 0.6 L Monocytes # (Manual) Eosinophils # (Manual) INR D-Dimer 6159.48 H ABG pH POC ABG pCO2 POC ABG pO2 ABG pO2 ABG HCO3 ABG O2 Saturation ABG Base Excess ABG Hemoglobin ABG Oxyhemoglobin ABG Sodium ABG Potassium ABG Chloride ABG Glucose Oxyhemoglobin Carboxyhemoglobin Sodium Potassium Chloride Carbon Dioxide BUN Creatinine Glucose POC Glucose Hemoglobin A1c Lactic Acid Calcium Phosphorus Magnesium Ferritin 1178.0 H Total Bilirubin AST ALT Lactate Dehydrogenase C-Reactive Protein Albumin Triglycerides Arterial Blood Glucose Arterial Blood Ionized Calcium Urine Creatinine Coronavirus (PCR) Crossmatch 01/24/21 01/24/21 01/24/21 05:05 05:05 05:05 WBC RBC Hgb Hct MCV MCH MCHC RDW Plt Count Lymph % (Auto) Lymph # (Auto) Seg Neutrophils % Seg Neuts % (Manual) Lymphocytes % (Manual) Monocytes % (Manual) Nucleated RBC % Seg Neutrophils # Seg Neutrophils # Man Lymphocytes # (Manual) Monocytes # (Manual) Eosinophils # (Manual) INR D-Dimer ABG pH POC ABG pCO2 POC ABG pO2 ABG pO2 ABG HCO3 ABG O2 Saturation ABG Base Excess ABG Hemoglobin ABG Oxyhemoglobin ABG Sodium ABG Potassium ABG Chloride ABG Glucose Oxyhemoglobin Carboxyhemoglobin Sodium 132 L Potassium Chloride 93.1 L Carbon Dioxide 21 L BUN 57 H Creatinine 3.7 H Glucose 133 H POC Glucose Hemoglobin A1c Lactic Acid 2.20 H* Calcium 7.7 L Phosphorus Magnesium Ferritin Total Bilirubin AST ALT Lactate Dehydrogenase 658 H C-Reactive Protein 33.20 H Albumin 2.4 L Triglycerides Arterial Blood Glucose Arterial Blood Ionized Calcium Urine Creatinine Coronavirus (PCR) Crossmatch 01/24/21 01/24/21 01/24/21 05:34 06:00 17:35 WBC RBC Hgb Hct MCV MCH MCHC RDW Plt Count Lymph % (Auto) Lymph # (Auto) Seg Neutrophils % Seg Neuts % (Manual) Lymphocytes % (Manual) Monocytes % (Manual) Nucleated RBC % Seg Neutrophils # Seg Neutrophils # Man Lymphocytes # (Manual) Monocytes # (Manual) Eosinophils # (Manual) INR D-Dimer ABG pH POC ABG pCO2 POC ABG pO2 ABG pO2 ABG HCO3 ABG O2 Saturation ABG Base Excess ABG Hemoglobin ABG Oxyhemoglobin ABG Sodium ABG Potassium ABG Chloride ABG Glucose Oxyhemoglobin Carboxyhemoglobin Sodium Potassium Chloride Carbon Dioxide BUN Creatinine Glucose POC Glucose 136 H 137 H Hemoglobin A1c Lactic Acid Calcium Phosphorus Magnesium 2.80 H Ferritin Total Bilirubin AST ALT Lactate Dehydrogenase C-Reactive Protein Albumin Triglycerides Arterial Blood Glucose Arterial Blood Ionized Calcium Urine Creatinine Coronavirus (PCR) Crossmatch 01/25/21 01/25/21 01/25/21 04:15 05:40 05:40 WBC RBC Hgb Hct MCV 95 H MCH 33 H MCHC 35 H RDW Plt Count Lymph % (Auto) Lymph # (Auto) Seg Neutrophils % Seg Neuts % (Manual) 95.0 H Lymphocytes % (Manual) 3.0 L Monocytes % (Manual) Nucleated RBC % Seg Neutrophils # Seg Neutrophils # Man 7.8 H Lymphocytes # (Manual) 0.2 L Monocytes # (Manual) Eosinophils # (Manual) INR D-Dimer ABG pH POC ABG pCO2 POC ABG pO2 63.2 L ABG pO2 ABG HCO3 ABG O2 Saturation ABG Base Excess ABG Hemoglobin ABG Oxyhemoglobin 89.6 L ABG Sodium ABG Potassium ABG Chloride ABG Glucose 165 H Oxyhemoglobin Carboxyhemoglobin 0.3 L Sodium Potassium Chloride Carbon Dioxide BUN 67 H Creatinine 3.4 H Glucose 153 H POC Glucose Hemoglobin A1c Lactic Acid Calcium 7.5 L Phosphorus Magnesium Ferritin Total Bilirubin 1.40 H AST 62 H ALT Lactate Dehydrogenase C-Reactive Protein Albumin 2.6 L Triglycerides Arterial Blood Glucose 165 H Arterial Blood Ionized Calcium 4.3 L Urine Creatinine Coronavirus (PCR) Crossmatch 01/25/21 01/25/21 01/25/21 05:59 12:00 17:17 WBC RBC Hgb Hct MCV MCH MCHC RDW Plt Count Lymph % (Auto) Lymph # (Auto) Seg Neutrophils % Seg Neuts % (Manual) Lymphocytes % (Manual) Monocytes % (Manual) Nucleated RBC % Seg Neutrophils # Seg Neutrophils # Man Lymphocytes # (Manual) Monocytes # (Manual) Eosinophils # (Manual) INR D-Dimer ABG pH POC ABG pCO2 POC ABG pO2 ABG pO2 ABG HCO3 ABG O2 Saturation ABG Base Excess ABG Hemoglobin ABG Oxyhemoglobin ABG Sodium ABG Potassium ABG Chloride ABG Glucose Oxyhemoglobin Carboxyhemoglobin Sodium Potassium Chloride Carbon Dioxide BUN Creatinine Glucose POC Glucose 140 H 143 H 149 H Hemoglobin A1c Lactic Acid Calcium Phosphorus Magnesium Ferritin Total Bilirubin AST ALT Lactate Dehydrogenase C-Reactive Protein Albumin Triglycerides Arterial Blood Glucose Arterial Blood Ionized Calcium Urine Creatinine Coronavirus (PCR) Crossmatch 01/25/21 01/26/21 01/26/21 23:41 03:43 05:46 WBC RBC Hgb Hct MCV MCH MCHC RDW Plt Count Lymph % (Auto) Lymph # (Auto) Seg Neutrophils % Seg Neuts % (Manual) Lymphocytes % (Manual) Monocytes % (Manual) Nucleated RBC % Seg Neutrophils # Seg Neutrophils # Man Lymphocytes # (Manual) Monocytes # (Manual) Eosinophils # (Manual) INR D-Dimer ABG pH POC ABG pCO2 POC ABG pO2 70.0 L ABG pO2 ABG HCO3 ABG O2 Saturation ABG Base Excess ABG Hemoglobin ABG Oxyhemoglobin 91.9 L ABG Sodium ABG Potassium ABG Chloride 109.0 H ABG Glucose 165 H Oxyhemoglobin Carboxyhemoglobin Sodium Potassium Chloride Carbon Dioxide BUN Creatinine Glucose POC Glucose 132 H 161 H Hemoglobin A1c Lactic Acid Calcium Phosphorus Magnesium Ferritin Total Bilirubin AST ALT Lactate Dehydrogenase C-Reactive Protein Albumin Triglycerides Arterial Blood Glucose 165 H Arterial Blood Ionized Calcium 4.5 L Urine Creatinine Coronavirus (PCR) Crossmatch 01/26/21 01/26/21 01/26/21 05:47 05:47 05:47 WBC RBC Hgb Hct 35.3 L MCV 96 H MCH 33 H MCHC RDW Plt Count Lymph % (Auto) Lymph # (Auto) Seg Neutrophils % Seg Neuts % (Manual) 96.0 H Lymphocytes % (Manual) 2.0 L Monocytes % (Manual) Nucleated RBC % Seg Neutrophils # Seg Neutrophils # Man Lymphocytes # (Manual) 0.1 L Monocytes # (Manual) Eosinophils # (Manual) INR D-Dimer > 59971 H ABG pH POC ABG pCO2 POC ABG pO2 ABG pO2 ABG HCO3 ABG O2 Saturation ABG Base Excess ABG Hemoglobin ABG Oxyhemoglobin ABG Sodium ABG Potassium ABG Chloride ABG Glucose Oxyhemoglobin Carboxyhemoglobin Sodium Potassium Chloride Carbon Dioxide BUN 57 H Creatinine 2.2 H Glucose 185 H POC Glucose Hemoglobin A1c Lactic Acid Calcium 8.1 L Phosphorus Magnesium Ferritin Total Bilirubin AST ALT Lactate Dehydrogenase C-Reactive Protein Albumin Triglycerides Arterial Blood Glucose Arterial Blood Ionized Calcium Urine Creatinine Coronavirus (PCR) Crossmatch 01/26/21 01/26/21 01/26/21 05:47 05:47 05:47 WBC RBC Hgb Hct MCV MCH MCHC RDW Plt Count Lymph % (Auto) Lymph # (Auto) Seg Neutrophils % Seg Neuts % (Manual) Lymphocytes % (Manual) Monocytes % (Manual) Nucleated RBC % Seg Neutrophils # Seg Neutrophils # Man Lymphocytes # (Manual) Monocytes # (Manual) Eosinophils # (Manual) INR D-Dimer ABG pH POC ABG pCO2 POC ABG pO2 ABG pO2 ABG HCO3 ABG O2 Saturation ABG Base Excess ABG Hemoglobin ABG Oxyhemoglobin ABG Sodium ABG Potassium ABG Chloride ABG Glucose Oxyhemoglobin Carboxyhemoglobin Sodium Potassium Chloride 107.1 H Carbon Dioxide BUN 56 H Creatinine 2.2 H Glucose 188 H POC Glucose Hemoglobin A1c Lactic Acid Calcium 8.0 L Phosphorus Magnesium Ferritin 1178.0 H Total Bilirubin 1.50 H AST ALT Lactate Dehydrogenase 588 H C-Reactive Protein 40.10 H Albumin 2.2 L Triglycerides Arterial Blood Glucose Arterial Blood Ionized Calcium Urine Creatinine Coronavirus (PCR) Crossmatch 01/26/21 01/26/21 01/26/21 11:34 18:17 23:20 WBC RBC Hgb Hct MCV MCH MCHC RDW Plt Count Lymph % (Auto) Lymph # (Auto) Seg Neutrophils % Seg Neuts % (Manual) Lymphocytes % (Manual) Monocytes % (Manual) Nucleated RBC % Seg Neutrophils # Seg Neutrophils # Man Lymphocytes # (Manual) Monocytes # (Manual) Eosinophils # (Manual) INR D-Dimer ABG pH POC ABG pCO2 POC ABG pO2 ABG pO2 ABG HCO3 ABG O2 Saturation ABG Base Excess ABG Hemoglobin ABG Oxyhemoglobin ABG Sodium ABG Potassium ABG Chloride ABG Glucose Oxyhemoglobin Carboxyhemoglobin Sodium Potassium Chloride Carbon Dioxide BUN Creatinine Glucose POC Glucose 129 H 205 H 155 H Hemoglobin A1c Lactic Acid Calcium Phosphorus Magnesium Ferritin Total Bilirubin AST ALT Lactate Dehydrogenase C-Reactive Protein Albumin Triglycerides Arterial Blood Glucose Arterial Blood Ionized Calcium Urine Creatinine Coronavirus (PCR) Crossmatch 01/27/21 01/27/21 01/27/21 02:45 05:29 05:29 WBC RBC 3.58 L Hgb 11.7 L Hct 34.9 L MCV 97 H MCH 33 H MCHC RDW Plt Count Lymph % (Auto) Lymph # (Auto) Seg Neutrophils % Seg Neuts % (Manual) 88.0 H Lymphocytes % (Manual) 7.0 L Monocytes % (Manual) Nucleated RBC % Seg Neutrophils # Seg Neutrophils # Man Lymphocytes # (Manual) 0.5 L Monocytes # (Manual) Eosinophils # (Manual) INR D-Dimer ABG pH 7.319 L POC ABG pCO2 50.7 H POC ABG pO2 63.0 L ABG pO2 ABG HCO3 ABG O2 Saturation ABG Base Excess ABG Hemoglobin ABG Oxyhemoglobin ABG Sodium 145.2 H ABG Potassium 5.1 H ABG Chloride 114.0 H ABG Glucose 178 H Oxyhemoglobin Carboxyhemoglobin Sodium Potassium Chloride Carbon Dioxide BUN Creatinine Glucose POC Glucose Hemoglobin A1c Lactic Acid Calcium Phosphorus Magnesium 4.00 H Ferritin Total Bilirubin AST ALT Lactate Dehydrogenase C-Reactive Protein Albumin Triglycerides Arterial Blood Glucose 178 H Arterial Blood Ionized Calcium Urine Creatinine Coronavirus (PCR) Crossmatch 01/27/21 01/27/21 01/27/21 05:29 05:29 05:31 WBC RBC Hgb Hct MCV MCH MCHC RDW Plt Count Lymph % (Auto) Lymph # (Auto) Seg Neutrophils % Seg Neuts % (Manual) Lymphocytes % (Manual) Monocytes % (Manual) Nucleated RBC % Seg Neutrophils # Seg Neutrophils # Man Lymphocytes # (Manual) Monocytes # (Manual) Eosinophils # (Manual) INR D-Dimer ABG pH POC ABG pCO2 POC ABG pO2 ABG pO2 ABG HCO3 ABG O2 Saturation ABG Base Excess ABG Hemoglobin ABG Oxyhemoglobin ABG Sodium ABG Potassium ABG Chloride ABG Glucose Oxyhemoglobin Carboxyhemoglobin Sodium Potassium 5.2 H Chloride 109.6 H Carbon Dioxide BUN 67 H Creatinine 2.8 H Glucose 195 H POC Glucose 176 H Hemoglobin A1c Lactic Acid Calcium 7.9 L Phosphorus Magnesium Ferritin Total Bilirubin AST ALT Lactate Dehydrogenase C-Reactive Protein Albumin Triglycerides 160 H Arterial Blood Glucose Arterial Blood Ionized Calcium Urine Creatinine Coronavirus (PCR) Crossmatch 01/27/21 01/27/21 01/27/21 11:27 18:08 23:30 WBC RBC Hgb Hct MCV MCH MCHC RDW Plt Count Lymph % (Auto) Lymph # (Auto) Seg Neutrophils % Seg Neuts % (Manual) Lymphocytes % (Manual) Monocytes % (Manual) Nucleated RBC % Seg Neutrophils # Seg Neutrophils # Man Lymphocytes # (Manual) Monocytes # (Manual) Eosinophils # (Manual) INR D-Dimer ABG pH POC ABG pCO2 POC ABG pO2 ABG pO2 ABG HCO3 ABG O2 Saturation ABG Base Excess ABG Hemoglobin ABG Oxyhemoglobin ABG Sodium ABG Potassium ABG Chloride ABG Glucose Oxyhemoglobin Carboxyhemoglobin Sodium Potassium Chloride Carbon Dioxide BUN Creatinine Glucose POC Glucose 189 H 212 H 175 H Hemoglobin A1c Lactic Acid Calcium Phosphorus Magnesium Ferritin Total Bilirubin AST ALT Lactate Dehydrogenase C-Reactive Protein Albumin Triglycerides Arterial Blood Glucose Arterial Blood Ionized Calcium Urine Creatinine Coronavirus (PCR) Crossmatch 01/28/21 01/28/21 01/28/21 03:58 04:00 04:00 WBC RBC Hgb Hct MCV MCH MCHC RDW Plt Count Lymph % (Auto) Lymph # (Auto) Seg Neutrophils % Seg Neuts % (Manual) Lymphocytes % (Manual) Monocytes % (Manual) Nucleated RBC % Seg Neutrophils # Seg Neutrophils # Man Lymphocytes # (Manual) Monocytes # (Manual) Eosinophils # (Manual) INR D-Dimer > 46216 H ABG pH POC ABG pCO2 POC ABG pO2 52.9 L ABG pO2 ABG HCO3 ABG O2 Saturation ABG Base Excess ABG Hemoglobin ABG Oxyhemoglobin 84.1 L ABG Sodium 148.9 H ABG Potassium ABG Chloride 117.0 H ABG Glucose 194 H Oxyhemoglobin Carboxyhemoglobin Sodium Potassium Chloride Carbon Dioxide BUN Creatinine Glucose POC Glucose Hemoglobin A1c Lactic Acid Calcium Phosphorus Magnesium Ferritin Total Bilirubin AST ALT Lactate Dehydrogenase 679 H C-Reactive Protein 17.10 H Albumin Triglycerides Arterial Blood Glucose 194 H Arterial Blood Ionized Calcium Urine Creatinine Coronavirus (PCR) Crossmatch 01/28/21 01/28/21 01/28/21 04:00 05:00 06:00 WBC RBC 3.59 L Hgb 11.6 L Hct 34.8 L MCV 97 H MCH MCHC RDW Plt Count Lymph % (Auto) Lymph # (Auto) Seg Neutrophils % Seg Neuts % (Manual) 96.0 H Lymphocytes % (Manual) 3.0 L Monocytes % (Manual) Nucleated RBC % Seg Neutrophils # Seg Neutrophils # Man Lymphocytes # (Manual) 0.2 L Monocytes # (Manual) Eosinophils # (Manual) INR D-Dimer ABG pH POC ABG pCO2 POC ABG pO2 ABG pO2 ABG HCO3 ABG O2 Saturation ABG Base Excess ABG Hemoglobin ABG Oxyhemoglobin ABG Sodium ABG Potassium ABG Chloride ABG Glucose Oxyhemoglobin Carboxyhemoglobin Sodium Potassium Chloride Carbon Dioxide BUN Creatinine Glucose POC Glucose 159 H Hemoglobin A1c Lactic Acid Calcium Phosphorus Magnesium Ferritin 798.0 H Total Bilirubin AST ALT Lactate Dehydrogenase C-Reactive Protein Albumin Triglycerides Arterial Blood Glucose Arterial Blood Ionized Calcium Urine Creatinine Coronavirus (PCR) Crossmatch 01/28/21 01/28/21 01/28/21 06:00 06:00 08:12 WBC RBC Hgb Hct MCV MCH MCHC RDW Plt Count Lymph % (Auto) Lymph # (Auto) Seg Neutrophils % Seg Neuts % (Manual) Lymphocytes % (Manual) Monocytes % (Manual) Nucleated RBC % Seg Neutrophils # Seg Neutrophils # Man Lymphocytes # (Manual) Monocytes # (Manual) Eosinophils # (Manual) INR D-Dimer ABG pH POC ABG pCO2 POC ABG pO2 ABG pO2 ABG HCO3 ABG O2 Saturation ABG Base Excess ABG Hemoglobin ABG Oxyhemoglobin ABG Sodium ABG Potassium ABG Chloride ABG Glucose Oxyhemoglobin Carboxyhemoglobin Sodium Potassium Chloride 111.9 H Carbon Dioxide BUN 59 H Creatinine 2.2 H Glucose 189 H POC Glucose 181 H Hemoglobin A1c Lactic Acid Calcium 8.1 L Phosphorus Magnesium 3.20 H Ferritin Total Bilirubin AST ALT Lactate Dehydrogenase C-Reactive Protein Albumin Triglycerides Arterial Blood Glucose Arterial Blood Ionized Calcium Urine Creatinine Coronavirus (PCR) Crossmatch 01/28/21 01/28/21 01/28/21 12:03 16:43 23:51 WBC RBC Hgb Hct MCV MCH MCHC RDW Plt Count Lymph % (Auto) Lymph # (Auto) Seg Neutrophils % Seg Neuts % (Manual) Lymphocytes % (Manual) Monocytes % (Manual) Nucleated RBC % Seg Neutrophils # Seg Neutrophils # Man Lymphocytes # (Manual) Monocytes # (Manual) Eosinophils # (Manual) INR D-Dimer ABG pH POC ABG pCO2 POC ABG pO2 ABG pO2 ABG HCO3 ABG O2 Saturation ABG Base Excess ABG Hemoglobin ABG Oxyhemoglobin ABG Sodium ABG Potassium ABG Chloride ABG Glucose Oxyhemoglobin Carboxyhemoglobin Sodium Potassium Chloride Carbon Dioxide BUN Creatinine Glucose POC Glucose 164 H 198 H 196 H Hemoglobin A1c Lactic Acid Calcium Phosphorus Magnesium Ferritin Total Bilirubin AST ALT Lactate Dehydrogenase C-Reactive Protein Albumin Triglycerides Arterial Blood Glucose Arterial Blood Ionized Calcium Urine Creatinine Coronavirus (PCR) Crossmatch 01/29/21 01/29/21 01/29/21 05:00 05:23 06:00 WBC RBC Hgb Hct MCV MCH MCHC RDW Plt Count Lymph % (Auto) Lymph # (Auto) Seg Neutrophils % Seg Neuts % (Manual) Lymphocytes % (Manual) Monocytes % (Manual) Nucleated RBC % Seg Neutrophils # Seg Neutrophils # Man Lymphocytes # (Manual) Monocytes # (Manual) Eosinophils # (Manual) INR D-Dimer ABG pH 7.119 L POC ABG pCO2 87.1 H POC ABG pO2 ABG pO2 ABG HCO3 ABG O2 Saturation ABG Base Excess ABG Hemoglobin ABG Oxyhemoglobin ABG Sodium 152.5 H ABG Potassium 5.7 H ABG Chloride 120.0 H ABG Glucose 217 H Oxyhemoglobin Carboxyhemoglobin Sodium 151 H Potassium 5.9 H D Chloride 117.8 H Carbon Dioxide BUN 54 H Creatinine 2.2 H Glucose 208 H POC Glucose 180 H Hemoglobin A1c Lactic Acid Calcium 7.9 L Phosphorus Magnesium Ferritin Total Bilirubin AST ALT Lactate Dehydrogenase C-Reactive Protein Albumin Triglycerides Arterial Blood Glucose 217 H Arterial Blood Ionized Calcium Urine Creatinine Coronavirus (PCR) Crossmatch 01/29/21 01/29/21 01/29/21 12:29 17:28 18:05 WBC RBC Hgb Hct MCV MCH MCHC RDW Plt Count Lymph % (Auto) Lymph # (Auto) Seg Neutrophils % Seg Neuts % (Manual) Lymphocytes % (Manual) Monocytes % (Manual) Nucleated RBC % Seg Neutrophils # Seg Neutrophils # Man Lymphocytes # (Manual) Monocytes # (Manual) Eosinophils # (Manual) INR D-Dimer ABG pH POC ABG pCO2 POC ABG pO2 ABG pO2 ABG HCO3 ABG O2 Saturation ABG Base Excess ABG Hemoglobin ABG Oxyhemoglobin ABG Sodium ABG Potassium ABG Chloride ABG Glucose Oxyhemoglobin Carboxyhemoglobin Sodium 151 H Potassium 5.5 H Chloride 118.2 H Carbon Dioxide BUN 52 H Creatinine 2.2 H Glucose 224 H POC Glucose 181 H 203 H Hemoglobin A1c Lactic Acid Calcium 8.0 L Phosphorus Magnesium Ferritin Total Bilirubin AST ALT Lactate Dehydrogenase C-Reactive Protein Albumin Triglycerides Arterial Blood Glucose Arterial Blood Ionized Calcium Urine Creatinine Coronavirus (PCR) Crossmatch 01/29/21 01/29/21 01/29/21 18:13 23:34 Unknown WBC RBC Hgb Hct MCV 101 H MCH MCHC RDW 15.7 H Plt Count Lymph % (Auto) Lymph # (Auto) Seg Neutrophils % Seg Neuts % (Manual) 95.0 H Lymphocytes % (Manual) 3.0 L Monocytes % (Manual) Nucleated RBC % Seg Neutrophils # Seg Neutrophils # Man 8.0 H Lymphocytes # (Manual) 0.3 L Monocytes # (Manual) Eosinophils # (Manual) INR D-Dimer ABG pH 7.223 L POC ABG pCO2 64.8 H POC ABG pO2 63.6 L ABG pO2 ABG HCO3 ABG O2 Saturation ABG Base Excess ABG Hemoglobin ABG Oxyhemoglobin 89.4 L ABG Sodium 152.9 H ABG Potassium 5.3 H ABG Chloride 121.0 H ABG Glucose 227 H Oxyhemoglobin Carboxyhemoglobin Sodium Potassium Chloride Carbon Dioxide BUN Creatinine Glucose POC Glucose 198 H Hemoglobin A1c Lactic Acid Calcium Phosphorus Magnesium Ferritin Total Bilirubin AST ALT Lactate Dehydrogenase C-Reactive Protein Albumin Triglycerides Arterial Blood Glucose 227 H Arterial Blood Ionized Calcium Urine Creatinine Coronavirus (PCR) Crossmatch 01/30/21 01/30/21 01/30/21 04:00 04:00 04:00 WBC RBC Hgb Hct MCV MCH MCHC RDW Plt Count Lymph % (Auto) Lymph # (Auto) Seg Neutrophils % Seg Neuts % (Manual) Lymphocytes % (Manual) Monocytes % (Manual) Nucleated RBC % Seg Neutrophils # Seg Neutrophils # Man Lymphocytes # (Manual) Monocytes # (Manual) Eosinophils # (Manual) INR D-Dimer > 69234 H ABG pH POC ABG pCO2 POC ABG pO2 ABG pO2 ABG HCO3 ABG O2 Saturation ABG Base Excess ABG Hemoglobin ABG Oxyhemoglobin ABG Sodium ABG Potassium ABG Chloride ABG Glucose Oxyhemoglobin Carboxyhemoglobin Sodium Potassium Chloride Carbon Dioxide BUN Creatinine Glucose 234 H POC Glucose Hemoglobin A1c Lactic Acid Calcium Phosphorus Magnesium Ferritin 763.9 H Total Bilirubin AST ALT Lactate Dehydrogenase 424 H C-Reactive Protein 23.90 H Albumin Triglycerides Arterial Blood Glucose Arterial Blood Ionized Calcium Urine Creatinine Coronavirus (PCR) Crossmatch 01/30/21 01/30/21 01/30/21 04:24 05:00 05:16 WBC RBC 3.57 L Hgb 11.3 L Hct 35.4 L MCV 99 H MCH MCHC RDW 15.6 H Plt Count Lymph % (Auto) Lymph # (Auto) Seg Neutrophils % Seg Neuts % (Manual) 97.0 H Lymphocytes % (Manual) 1.0 L Monocytes % (Manual) Nucleated RBC % Seg Neutrophils # Seg Neutrophils # Man 8.6 H Lymphocytes # (Manual) 0.1 L Monocytes # (Manual) Eosinophils # (Manual) INR D-Dimer ABG pH 7.235 L POC ABG pCO2 69.7 H POC ABG pO2 61.0 L ABG pO2 ABG HCO3 ABG O2 Saturation ABG Base Excess ABG Hemoglobin ABG Oxyhemoglobin 89 L ABG Sodium 154.2 H ABG Potassium 5.4 H ABG Chloride 121.0 H ABG Glucose 247 H Oxyhemoglobin Carboxyhemoglobin Sodium Potassium Chloride Carbon Dioxide BUN Creatinine Glucose POC Glucose 238 H Hemoglobin A1c Lactic Acid Calcium Phosphorus Magnesium Ferritin Total Bilirubin AST ALT Lactate Dehydrogenase C-Reactive Protein Albumin Triglycerides Arterial Blood Glucose 247 H Arterial Blood Ionized Calcium Urine Creatinine Coronavirus (PCR) Crossmatch 01/30/21 01/30/21 01/30/21 06:00 11:28 12:00 WBC RBC Hgb Hct MCV MCH MCHC RDW Plt Count Lymph % (Auto) Lymph # (Auto) Seg Neutrophils % Seg Neuts % (Manual) Lymphocytes % (Manual) Monocytes % (Manual) Nucleated RBC % Seg Neutrophils # Seg Neutrophils # Man Lymphocytes # (Manual) Monocytes # (Manual) Eosinophils # (Manual) INR D-Dimer ABG pH POC ABG pCO2 POC ABG pO2 ABG pO2 ABG HCO3 ABG O2 Saturation ABG Base Excess ABG Hemoglobin ABG Oxyhemoglobin ABG Sodium ABG Potassium ABG Chloride ABG Glucose Oxyhemoglobin Carboxyhemoglobin Sodium 152 H Potassium 5.3 H Chloride 120.5 H Carbon Dioxide BUN 50 H Creatinine 2.3 H Glucose 239 H POC Glucose 153 H Hemoglobin A1c Lactic Acid Calcium 8.2 L Phosphorus Magnesium 2.60 H Ferritin Total Bilirubin AST ALT Lactate Dehydrogenase C-Reactive Protein Albumin Triglycerides 293 H Arterial Blood Glucose Arterial Blood Ionized Calcium Urine Creatinine 53.0 H Coronavirus (PCR) Crossmatch 01/30/21 01/30/21 01/31/21 18:49 23:06 04:00 WBC RBC Hgb Hct MCV MCH MCHC RDW Plt Count Lymph % (Auto) Lymph # (Auto) Seg Neutrophils % Seg Neuts % (Manual) Lymphocytes % (Manual) Monocytes % (Manual) Nucleated RBC % Seg Neutrophils # Seg Neutrophils # Man Lymphocytes # (Manual) Monocytes # (Manual) Eosinophils # (Manual) INR D-Dimer ABG pH POC ABG pCO2 POC ABG pO2 ABG pO2 ABG HCO3 ABG O2 Saturation ABG Base Excess ABG Hemoglobin ABG Oxyhemoglobin ABG Sodium ABG Potassium ABG Chloride ABG Glucose Oxyhemoglobin Carboxyhemoglobin Sodium 156 H Potassium 5.9 H Chloride 122.6 H Carbon Dioxide BUN 61 H Creatinine 3.2 H Glucose 205 H POC Glucose 220 H 192 H Hemoglobin A1c Lactic Acid Calcium 8.0 L Phosphorus Magnesium Ferritin Total Bilirubin AST ALT Lactate Dehydrogenase C-Reactive Protein Albumin Triglycerides Arterial Blood Glucose Arterial Blood Ionized Calcium Urine Creatinine Coronavirus (PCR) Crossmatch 01/31/21 01/31/21 01/31/21 04:40 05:17 11:33 WBC RBC Hgb Hct MCV MCH MCHC RDW Plt Count Lymph % (Auto) Lymph # (Auto) Seg Neutrophils % Seg Neuts % (Manual) Lymphocytes % (Manual) Monocytes % (Manual) Nucleated RBC % Seg Neutrophils # Seg Neutrophils # Man Lymphocytes # (Manual) Monocytes # (Manual) Eosinophils # (Manual) INR D-Dimer ABG pH 7.161 L* POC ABG pCO2 POC ABG pO2 ABG pO2 142.2 H ABG HCO3 28.3 H ABG O2 Saturation ABG Base Excess -3.2 L ABG Hemoglobin ABG Oxyhemoglobin ABG Sodium ABG Potassium ABG Chloride ABG Glucose Oxyhemoglobin Carboxyhemoglobin Sodium Potassium Chloride Carbon Dioxide BUN Creatinine Glucose POC Glucose 200 H 167 H Hemoglobin A1c Lactic Acid Calcium Phosphorus Magnesium Ferritin Total Bilirubin AST ALT Lactate Dehydrogenase C-Reactive Protein Albumin Triglycerides Arterial Blood Glucose Arterial Blood Ionized Calcium Urine Creatinine Coronavirus (PCR) Crossmatch 01/31/21 01/31/21 01/31/21 14:00 17:10 23:24 WBC RBC Hgb Hct MCV MCH MCHC RDW Plt Count Lymph % (Auto) Lymph # (Auto) Seg Neutrophils % Seg Neuts % (Manual) Lymphocytes % (Manual) Monocytes % (Manual) Nucleated RBC % Seg Neutrophils # Seg Neutrophils # Man Lymphocytes # (Manual) Monocytes # (Manual) Eosinophils # (Manual) INR D-Dimer ABG pH 7.205 L POC ABG pCO2 POC ABG pO2 ABG pO2 90.9 H ABG HCO3 26.5 H ABG O2 Saturation ABG Base Excess -2.7 L ABG Hemoglobin 12.3 L ABG Oxyhemoglobin ABG Sodium ABG Potassium ABG Chloride ABG Glucose Oxyhemoglobin 93.9 L Carboxyhemoglobin Sodium Potassium Chloride Carbon Dioxide BUN Creatinine Glucose POC Glucose 190 H 203 H Hemoglobin A1c Lactic Acid Calcium Phosphorus Magnesium Ferritin Total Bilirubin AST ALT Lactate Dehydrogenase C-Reactive Protein Albumin Triglycerides Arterial Blood Glucose Arterial Blood Ionized Calcium Urine Creatinine Coronavirus (PCR) Crossmatch 02/01/21 02/01/21 02/01/21 05:15 06:22 10:20 WBC RBC Hgb Hct MCV MCH MCHC RDW Plt Count Lymph % (Auto) Lymph # (Auto) Seg Neutrophils % Seg Neuts % (Manual) Lymphocytes % (Manual) Monocytes % (Manual) Nucleated RBC % Seg Neutrophils # Seg Neutrophils # Man Lymphocytes # (Manual) Monocytes # (Manual) Eosinophils # (Manual) INR D-Dimer ABG pH 6.920 L* 7.116 L* POC ABG pCO2 POC ABG pO2 ABG pO2 102.9 H 113.1 H ABG HCO3 28.2 H ABG O2 Saturation 92.9 L ABG Base Excess -6.9 L -5.8 L ABG Hemoglobin 11.6 L 9.5 L ABG Oxyhemoglobin ABG Sodium ABG Potassium ABG Chloride ABG Glucose Oxyhemoglobin 90.5 L 94.6 L Carboxyhemoglobin Sodium Potassium Chloride Carbon Dioxide BUN Creatinine Glucose POC Glucose 221 H Hemoglobin A1c Lactic Acid Calcium Phosphorus Magnesium Ferritin Total Bilirubin AST ALT Lactate Dehydrogenase C-Reactive Protein Albumin Triglycerides Arterial Blood Glucose Arterial Blood Ionized Calcium Urine Creatinine Coronavirus (PCR) Crossmatch 02/01/21 02/01/21 02/01/21 11:12 12:35 16:00 WBC RBC Hgb Hct MCV MCH MCHC RDW Plt Count Lymph % (Auto) Lymph # (Auto) Seg Neutrophils % Seg Neuts % (Manual) Lymphocytes % (Manual) Monocytes % (Manual) Nucleated RBC % Seg Neutrophils # Seg Neutrophils # Man Lymphocytes # (Manual) Monocytes # (Manual) Eosinophils # (Manual) INR D-Dimer ABG pH 7.155 L* POC ABG pCO2 POC ABG pO2 ABG pO2 94.6 H ABG HCO3 ABG O2 Saturation ABG Base Excess -6.5 L ABG Hemoglobin 13.1 L ABG Oxyhemoglobin ABG Sodium ABG Potassium ABG Chloride ABG Glucose Oxyhemoglobin 93.7 L Carboxyhemoglobin Sodium 155 H Potassium 5.1 H Chloride 120.5 H Carbon Dioxide BUN 90 H Creatinine 6.1 H D Glucose 238 H POC Glucose 207 H Hemoglobin A1c Lactic Acid Calcium 7.4 L Phosphorus Magnesium Ferritin Total Bilirubin AST ALT Lactate Dehydrogenase C-Reactive Protein Albumin Triglycerides Arterial Blood Glucose Arterial Blood Ionized Calcium Urine Creatinine Coronavirus (PCR) Crossmatch 02/01/21 02/01/21 02/02/21 17:10 23:47 04:04 WBC RBC 3.02 L Hgb 9.8 L Hct 30.7 L MCV 102 H MCH MCHC RDW 15.6 H Plt Count Lymph % (Auto) 4.2 L Lymph # (Auto) 0.3 L Seg Neutrophils % Seg Neuts % (Manual) Lymphocytes % (Manual) Monocytes % (Manual) Nucleated RBC % Seg Neutrophils # Seg Neutrophils # Man Lymphocytes # (Manual) Monocytes # (Manual) Eosinophils # (Manual) INR D-Dimer ABG pH POC ABG pCO2 POC ABG pO2 ABG pO2 ABG HCO3 ABG O2 Saturation ABG Base Excess ABG Hemoglobin ABG Oxyhemoglobin ABG Sodium ABG Potassium ABG Chloride ABG Glucose Oxyhemoglobin Carboxyhemoglobin Sodium Potassium Chloride Carbon Dioxide BUN Creatinine Glucose POC Glucose 238 H 235 H Hemoglobin A1c Lactic Acid Calcium Phosphorus Magnesium Ferritin Total Bilirubin AST ALT Lactate Dehydrogenase C-Reactive Protein Albumin Triglycerides Arterial Blood Glucose Arterial Blood Ionized Calcium Urine Creatinine Coronavirus (PCR) Crossmatch 02/02/21 02/02/21 02/02/21 05:18 05:35 11:28 WBC RBC Hgb Hct MCV MCH MCHC RDW Plt Count Lymph % (Auto) Lymph # (Auto) Seg Neutrophils % Seg Neuts % (Manual) Lymphocytes % (Manual) Monocytes % (Manual) Nucleated RBC % Seg Neutrophils # Seg Neutrophils # Man Lymphocytes # (Manual) Monocytes # (Manual) Eosinophils # (Manual) INR D-Dimer ABG pH 7.195 L* POC ABG pCO2 POC ABG pO2 ABG pO2 72.5 L ABG HCO3 ABG O2 Saturation 91.2 L ABG Base Excess -5.3 L ABG Hemoglobin 6.0 L ABG Oxyhemoglobin ABG Sodium ABG Potassium ABG Chloride ABG Glucose Oxyhemoglobin 89.1 L Carboxyhemoglobin Sodium Potassium Chloride 110.4 H Carbon Dioxide BUN 92 H Creatinine Glucose POC Glucose 239 H Hemoglobin A1c Lactic Acid Calcium Phosphorus Magnesium Ferritin Total Bilirubin AST ALT Lactate Dehydrogenase C-Reactive Protein Albumin Triglycerides Arterial Blood Glucose Arterial Blood Ionized Calcium Urine Creatinine Coronavirus (PCR) Crossmatch 02/02/21 02/02/21 02/02/21 11:53 16:00 18:04 WBC RBC Hgb Hct MCV MCH MCHC RDW Plt Count Lymph % (Auto) Lymph # (Auto) Seg Neutrophils % Seg Neuts % (Manual) Lymphocytes % (Manual) Monocytes % (Manual) Nucleated RBC % Seg Neutrophils # Seg Neutrophils # Man Lymphocytes # (Manual) Monocytes # (Manual) Eosinophils # (Manual) INR D-Dimer ABG pH POC ABG pCO2 POC ABG pO2 ABG pO2 ABG HCO3 ABG O2 Saturation ABG Base Excess ABG Hemoglobin ABG Oxyhemoglobin ABG Sodium ABG Potassium ABG Chloride ABG Glucose Oxyhemoglobin Carboxyhemoglobin Sodium Potassium Chloride Carbon Dioxide BUN Creatinine Glucose POC Glucose 248 H 199 H Hemoglobin A1c 6.3 H Lactic Acid Calcium Phosphorus Magnesium Ferritin Total Bilirubin AST ALT Lactate Dehydrogenase C-Reactive Protein Albumin Triglycerides Arterial Blood Glucose Arterial Blood Ionized Calcium Urine Creatinine Coronavirus (PCR) Crossmatch 02/02/21 02/03/21 02/03/21 23:31 03:12 04:10 WBC RBC 3.06 L Hgb 9.7 L Hct 30.4 L MCV 99 H MCH MCHC RDW 15.3 H Plt Count Lymph % (Auto) 6.1 L Lymph # (Auto) 0.5 L Seg Neutrophils % 86.1 H Seg Neuts % (Manual) Lymphocytes % (Manual) Monocytes % (Manual) Nucleated RBC % Seg Neutrophils # Seg Neutrophils # Man Lymphocytes # (Manual) Monocytes # (Manual) Eosinophils # (Manual) INR D-Dimer ABG pH 7.199 L POC ABG pCO2 48.3 H POC ABG pO2 68.3 L ABG pO2 ABG HCO3 ABG O2 Saturation ABG Base Excess ABG Hemoglobin 10.2 L ABG Oxyhemoglobin 89.2 L ABG Sodium 155.0 H ABG Potassium 4.6 H ABG Chloride 121.0 H ABG Glucose 166 H Oxyhemoglobin Carboxyhemoglobin 0.3 L Sodium Potassium Chloride Carbon Dioxide BUN Creatinine Glucose POC Glucose 200 H Hemoglobin A1c Lactic Acid Calcium Phosphorus Magnesium Ferritin Total Bilirubin AST ALT Lactate Dehydrogenase C-Reactive Protein Albumin Triglycerides Arterial Blood Glucose 166 H Arterial Blood Ionized Calcium 4.1 L Urine Creatinine Coronavirus (PCR) Crossmatch 02/03/21 02/03/21 02/03/21 04:10 05:34 11:51 WBC RBC Hgb Hct MCV MCH MCHC RDW Plt Count Lymph % (Auto) Lymph # (Auto) Seg Neutrophils % Seg Neuts % (Manual) Lymphocytes % (Manual) Monocytes % (Manual) Nucleated RBC % Seg Neutrophils # Seg Neutrophils # Man Lymphocytes # (Manual) Monocytes # (Manual) Eosinophils # (Manual) INR D-Dimer ABG pH POC ABG pCO2 POC ABG pO2 ABG pO2 ABG HCO3 ABG O2 Saturation ABG Base Excess ABG Hemoglobin ABG Oxyhemoglobin ABG Sodium ABG Potassium ABG Chloride ABG Glucose Oxyhemoglobin Carboxyhemoglobin Sodium 154 H D Potassium Chloride 116.7 H Carbon Dioxide 20 L BUN 130 H Creatinine 9.2 H D Glucose 160 H POC Glucose 130 H 154 H Hemoglobin A1c Lactic Acid Calcium 6.7 L Phosphorus 8.60 H Magnesium Ferritin Total Bilirubin AST ALT Lactate Dehydrogenase C-Reactive Protein Albumin Triglycerides Arterial Blood Glucose Arterial Blood Ionized Calcium Urine Creatinine Coronavirus (PCR) Crossmatch 02/03/21 02/03/21 02/04/21 16:49 23:22 03:48 WBC RBC Hgb Hct MCV MCH MCHC RDW Plt Count Lymph % (Auto) Lymph # (Auto) Seg Neutrophils % Seg Neuts % (Manual) Lymphocytes % (Manual) Monocytes % (Manual) Nucleated RBC % Seg Neutrophils # Seg Neutrophils # Man Lymphocytes # (Manual) Monocytes # (Manual) Eosinophils # (Manual) INR D-Dimer ABG pH 7.201 L POC ABG pCO2 54.5 H POC ABG pO2 74.0 L ABG pO2 ABG HCO3 ABG O2 Saturation ABG Base Excess ABG Hemoglobin 9.7 L ABG Oxyhemoglobin 91.1 L ABG Sodium 146.2 H ABG Potassium ABG Chloride 114.0 H ABG Glucose 155 H Oxyhemoglobin Carboxyhemoglobin Sodium Potassium Chloride Carbon Dioxide BUN Creatinine Glucose POC Glucose 164 H 152 H Hemoglobin A1c Lactic Acid Calcium Phosphorus Magnesium Ferritin Total Bilirubin AST ALT Lactate Dehydrogenase C-Reactive Protein Albumin Triglycerides Arterial Blood Glucose 155 H Arterial Blood Ionized Calcium 3.9 L Urine Creatinine Coronavirus (PCR) Crossmatch 02/04/21 02/04/21 02/04/21 04:45 04:45 04:45 WBC RBC 2.75 L Hgb 9.1 L Hct 26.9 L MCV 98 H MCH 33 H MCHC RDW Plt Count Lymph % (Auto) 6.8 L Lymph # (Auto) 0.5 L Seg Neutrophils % 87.2 H Seg Neuts % (Manual) Lymphocytes % (Manual) Monocytes % (Manual) Nucleated RBC % Seg Neutrophils # Seg Neutrophils # Man Lymphocytes # (Manual) Monocytes # (Manual) Eosinophils # (Manual) INR D-Dimer ABG pH POC ABG pCO2 POC ABG pO2 ABG pO2 ABG HCO3 ABG O2 Saturation ABG Base Excess ABG Hemoglobin ABG Oxyhemoglobin ABG Sodium ABG Potassium ABG Chloride ABG Glucose Oxyhemoglobin Carboxyhemoglobin Sodium 149 H Potassium Chloride 111.5 H Carbon Dioxide BUN 99 H Creatinine 8.5 H Glucose 139 H POC Glucose Hemoglobin A1c Lactic Acid Calcium 6.8 L Phosphorus 8.40 H Magnesium Ferritin Total Bilirubin AST ALT Lactate Dehydrogenase C-Reactive Protein Albumin Triglycerides Arterial Blood Glucose Arterial Blood Ionized Calcium Urine Creatinine Coronavirus (PCR) Crossmatch 02/04/21 02/04/21 02/04/21 06:05 11:44 18:00 WBC RBC Hgb Hct MCV MCH MCHC RDW Plt Count Lymph % (Auto) Lymph # (Auto) Seg Neutrophils % Seg Neuts % (Manual) Lymphocytes % (Manual) Monocytes % (Manual) Nucleated RBC % Seg Neutrophils # Seg Neutrophils # Man Lymphocytes # (Manual) Monocytes # (Manual) Eosinophils # (Manual) INR D-Dimer ABG pH POC ABG pCO2 POC ABG pO2 ABG pO2 ABG HCO3 ABG O2 Saturation ABG Base Excess ABG Hemoglobin ABG Oxyhemoglobin ABG Sodium ABG Potassium ABG Chloride ABG Glucose Oxyhemoglobin Carboxyhemoglobin Sodium Potassium Chloride Carbon Dioxide BUN Creatinine Glucose POC Glucose 138 H 129 H 163 H Hemoglobin A1c Lactic Acid Calcium Phosphorus Magnesium Ferritin Total Bilirubin AST ALT Lactate Dehydrogenase C-Reactive Protein Albumin Triglycerides Arterial Blood Glucose Arterial Blood Ionized Calcium Urine Creatinine Coronavirus (PCR) Crossmatch 02/04/21 02/05/21 02/05/21 23:48 01:50 01:50 WBC RBC 2.43 L Hgb 8.3 L Hct 23.6 L MCV 97 H MCH 34 H MCHC 35 H RDW Plt Count 137 L Lymph % (Auto) 8.4 L Lymph # (Auto) 0.6 L Seg Neutrophils % 86.1 H Seg Neuts % (Manual) Lymphocytes % (Manual) Monocytes % (Manual) Nucleated RBC % Seg Neutrophils # Seg Neutrophils # Man Lymphocytes # (Manual) Monocytes # (Manual) Eosinophils # (Manual) INR D-Dimer ABG pH POC ABG pCO2 POC ABG pO2 ABG pO2 ABG HCO3 ABG O2 Saturation ABG Base Excess ABG Hemoglobin ABG Oxyhemoglobin ABG Sodium ABG Potassium ABG Chloride ABG Glucose Oxyhemoglobin Carboxyhemoglobin Sodium Potassium Chloride Carbon Dioxide BUN Creatinine Glucose POC Glucose 157 H Hemoglobin A1c Lactic Acid Calcium Phosphorus 5.60 H D Magnesium Ferritin Total Bilirubin AST ALT Lactate Dehydrogenase C-Reactive Protein Albumin Triglycerides Arterial Blood Glucose Arterial Blood Ionized Calcium Urine Creatinine Coronavirus (PCR) Crossmatch 02/05/21 02/05/21 02/05/21 03:44 05:27 09:15 WBC RBC Hgb Hct MCV MCH MCHC RDW Plt Count Lymph % (Auto) Lymph # (Auto) Seg Neutrophils % Seg Neuts % (Manual) Lymphocytes % (Manual) Monocytes % (Manual) Nucleated RBC % Seg Neutrophils # Seg Neutrophils # Man Lymphocytes # (Manual) Monocytes # (Manual) Eosinophils # (Manual) INR D-Dimer ABG pH 7.202 L POC ABG pCO2 63.7 H POC ABG pO2 69.0 L ABG pO2 ABG HCO3 ABG O2 Saturation ABG Base Excess ABG Hemoglobin 9.4 L ABG Oxyhemoglobin ABG Sodium ABG Potassium ABG Chloride 108.0 H ABG Glucose 186 H Oxyhemoglobin Carboxyhemoglobin Sodium Potassium Chloride Carbon Dioxide BUN 78 H Creatinine 8.0 H Glucose 163 H POC Glucose 157 H Hemoglobin A1c Lactic Acid Calcium 6.3 L Phosphorus Magnesium Ferritin Total Bilirubin AST ALT Lactate Dehydrogenase C-Reactive Protein Albumin Triglycerides Arterial Blood Glucose 186 H Arterial Blood Ionized Calcium 3.9 L Urine Creatinine Coronavirus (PCR) Crossmatch 02/05/21 02/05/21 02/05/21 11:47 17:39 23:40 WBC RBC Hgb Hct MCV MCH MCHC RDW Plt Count Lymph % (Auto) Lymph # (Auto) Seg Neutrophils % Seg Neuts % (Manual) Lymphocytes % (Manual) Monocytes % (Manual) Nucleated RBC % Seg Neutrophils # Seg Neutrophils # Man Lymphocytes # (Manual) Monocytes # (Manual) Eosinophils # (Manual) INR D-Dimer ABG pH 7.273 L POC ABG pCO2 62.1 H POC ABG pO2 72.0 L ABG pO2 ABG HCO3 ABG O2 Saturation ABG Base Excess ABG Hemoglobin 9.1 L ABG Oxyhemoglobin 91.3 L ABG Sodium ABG Potassium 3.1 L ABG Chloride ABG Glucose 125 H Oxyhemoglobin Carboxyhemoglobin Sodium Potassium Chloride Carbon Dioxide BUN Creatinine Glucose POC Glucose 126 H 126 H Hemoglobin A1c Lactic Acid Calcium Phosphorus Magnesium Ferritin Total Bilirubin AST ALT Lactate Dehydrogenase C-Reactive Protein Albumin Triglycerides Arterial Blood Glucose 125 H Arterial Blood Ionized Calcium 4.0 L Urine Creatinine Coronavirus (PCR) Crossmatch 02/06/21 02/06/21 02/06/21 04:30 04:57 09:45 WBC RBC Hgb Hct MCV MCH MCHC RDW Plt Count Lymph % (Auto) Lymph # (Auto) Seg Neutrophils % Seg Neuts % (Manual) Lymphocytes % (Manual) Monocytes % (Manual) Nucleated RBC % Seg Neutrophils # Seg Neutrophils # Man Lymphocytes # (Manual) Monocytes # (Manual) Eosinophils # (Manual) INR D-Dimer ABG pH 7.159 L 7.138 L* POC ABG pCO2 76.3 H POC ABG pO2 66.9 L ABG pO2 ABG HCO3 ABG O2 Saturation 93.4 L ABG Base Excess -6.0 L ABG Hemoglobin 11.2 L 11.7 L ABG Oxyhemoglobin 88.2 L ABG Sodium ABG Potassium ABG Chloride ABG Glucose 134 H Oxyhemoglobin 91.2 L Carboxyhemoglobin Sodium Potassium Chloride Carbon Dioxide BUN Creatinine Glucose POC Glucose 124 H Hemoglobin A1c Lactic Acid Calcium Phosphorus Magnesium Ferritin Total Bilirubin AST ALT Lactate Dehydrogenase C-Reactive Protein Albumin Triglycerides Arterial Blood Glucose 134 H Arterial Blood Ionized Calcium 3.9 L Urine Creatinine Coronavirus (PCR) Crossmatch 02/06/21 02/06/21 02/06/21 11:11 17:00 17:00 WBC RBC Hgb Hct MCV MCH MCHC RDW Plt Count Lymph % (Auto) Lymph # (Auto) Seg Neutrophils % Seg Neuts % (Manual) Lymphocytes % (Manual) Monocytes % (Manual) Nucleated RBC % Seg Neutrophils # Seg Neutrophils # Man Lymphocytes # (Manual) Monocytes # (Manual) Eosinophils # (Manual) INR D-Dimer ABG pH 7.158 L* POC ABG pCO2 POC ABG pO2 ABG pO2 109.8 H ABG HCO3 28.7 H ABG O2 Saturation ABG Base Excess -2.5 L ABG Hemoglobin ABG Oxyhemoglobin ABG Sodium ABG Potassium ABG Chloride ABG Glucose Oxyhemoglobin 94.5 L Carboxyhemoglobin Sodium Potassium Chloride Carbon Dioxide BUN Creatinine Glucose POC Glucose 120 H Hemoglobin A1c Lactic Acid Calcium Phosphorus Magnesium Ferritin Total Bilirubin AST ALT Lactate Dehydrogenase C-Reactive Protein Albumin Triglycerides 503 H Arterial Blood Glucose Arterial Blood Ionized Calcium Urine Creatinine Coronavirus (PCR) Crossmatch 02/06/21 02/06/21 02/06/21 17:28 20:16 Unknown WBC 13.5 H RBC 2.98 L Hgb 9.3 L Hct 28.6 L MCV 96 H MCH MCHC RDW Plt Count Lymph % (Auto) Lymph # (Auto) Seg Neutrophils % Seg Neuts % (Manual) 87.0 H Lymphocytes % (Manual) 7.0 L Monocytes % (Manual) Nucleated RBC % Seg Neutrophils # Seg Neutrophils # Man 11.7 H Lymphocytes # (Manual) 0.9 L Monocytes # (Manual) Eosinophils # (Manual) 0.5 H INR D-Dimer ABG pH POC ABG pCO2 POC ABG pO2 ABG pO2 ABG HCO3 ABG O2 Saturation ABG Base Excess ABG Hemoglobin ABG Oxyhemoglobin ABG Sodium ABG Potassium ABG Chloride ABG Glucose Oxyhemoglobin Carboxyhemoglobin Sodium Potassium Chloride Carbon Dioxide BUN Creatinine Glucose POC Glucose 147 H 164 H Hemoglobin A1c Lactic Acid Calcium Phosphorus Magnesium Ferritin Total Bilirubin AST ALT Lactate Dehydrogenase C-Reactive Protein Albumin Triglycerides Arterial Blood Glucose Arterial Blood Ionized Calcium Urine Creatinine Coronavirus (PCR) Crossmatch 02/06/21 02/07/21 02/07/21 Unknown 01:21 04:00 WBC 12.0 H RBC 2.61 L Hgb 8.2 L Hct 24.5 L MCV MCH MCHC RDW Plt Count Lymph % (Auto) 8.9 L Lymph # (Auto) 1.1 L Seg Neutrophils % 86.3 H Seg Neuts % (Manual) Lymphocytes % (Manual) Monocytes % (Manual) Nucleated RBC % Seg Neutrophils # 10.3 H Seg Neutrophils # Man Lymphocytes # (Manual) Monocytes # (Manual) Eosinophils # (Manual) INR D-Dimer ABG pH POC ABG pCO2 POC ABG pO2 ABG pO2 ABG HCO3 ABG O2 Saturation ABG Base Excess ABG Hemoglobin ABG Oxyhemoglobin ABG Sodium ABG Potassium ABG Chloride ABG Glucose Oxyhemoglobin Carboxyhemoglobin Sodium Potassium 3.5 L Chloride Carbon Dioxide BUN 58 H Creatinine 6.6 H Glucose 107 H POC Glucose 173 H Hemoglobin A1c Lactic Acid Calcium 6.7 L Phosphorus 8.00 H D Magnesium Ferritin Total Bilirubin AST ALT Lactate Dehydrogenase C-Reactive Protein Albumin Triglycerides Arterial Blood Glucose Arterial Blood Ionized Calcium Urine Creatinine Coronavirus (PCR) Crossmatch 02/07/21 02/07/21 02/07/21 04:00 04:45 11:49 WBC RBC Hgb Hct MCV MCH MCHC RDW Plt Count Lymph % (Auto) Lymph # (Auto) Seg Neutrophils % Seg Neuts % (Manual) Lymphocytes % (Manual) Monocytes % (Manual) Nucleated RBC % Seg Neutrophils # Seg Neutrophils # Man Lymphocytes # (Manual) Monocytes # (Manual) Eosinophils # (Manual) INR D-Dimer ABG pH 7.287 L POC ABG pCO2 64.8 H POC ABG pO2 74.0 L ABG pO2 ABG HCO3 ABG O2 Saturation ABG Base Excess ABG Hemoglobin 9.1 L ABG Oxyhemoglobin 92.0 L ABG Sodium ABG Potassium 2.8 L ABG Chloride ABG Glucose 226 H Oxyhemoglobin Carboxyhemoglobin Sodium Potassium Chloride Carbon Dioxide BUN Creatinine Glucose POC Glucose 170 H Hemoglobin A1c Lactic Acid Calcium Phosphorus 5.50 H D Magnesium Ferritin Total Bilirubin AST ALT Lactate Dehydrogenase C-Reactive Protein Albumin Triglycerides Arterial Blood Glucose 226 H Arterial Blood Ionized Calcium 3.7 L Urine Creatinine Coronavirus (PCR) Crossmatch 02/07/21 02/07/21 02/07/21 13:48 17:45 23:02 WBC RBC Hgb Hct MCV MCH MCHC RDW Plt Count Lymph % (Auto) Lymph # (Auto) Seg Neutrophils % Seg Neuts % (Manual) Lymphocytes % (Manual) Monocytes % (Manual) Nucleated RBC % Seg Neutrophils # Seg Neutrophils # Man Lymphocytes # (Manual) Monocytes # (Manual) Eosinophils # (Manual) INR D-Dimer ABG pH POC ABG pCO2 POC ABG pO2 ABG pO2 ABG HCO3 ABG O2 Saturation ABG Base Excess ABG Hemoglobin ABG Oxyhemoglobin ABG Sodium ABG Potassium ABG Chloride ABG Glucose Oxyhemoglobin Carboxyhemoglobin Sodium 136 L Potassium 2.6 L* D Chloride 95.1 L Carbon Dioxide 33 H D BUN 30 H Creatinine 3.6 H Glucose 184 H POC Glucose 172 H 172 H Hemoglobin A1c Lactic Acid Calcium 6.9 L Phosphorus Magnesium Ferritin Total Bilirubin AST ALT Lactate Dehydrogenase C-Reactive Protein Albumin Triglycerides Arterial Blood Glucose Arterial Blood Ionized Calcium Urine Creatinine Coronavirus (PCR) Crossmatch 02/08/21 02/08/21 02/08/21 05:22 06:00 06:00 WBC RBC 2.21 L Hgb 7.2 L Hct 21.0 L MCV 95 H MCH MCHC RDW Plt Count Lymph % (Auto) Lymph # (Auto) Seg Neutrophils % Seg Neuts % (Manual) 87.0 H Lymphocytes % (Manual) 4.0 L Monocytes % (Manual) Nucleated RBC % Seg Neutrophils # Seg Neutrophils # Man 8.5 H Lymphocytes # (Manual) 0.4 L Monocytes # (Manual) Eosinophils # (Manual) INR D-Dimer ABG pH POC ABG pCO2 POC ABG pO2 ABG pO2 ABG HCO3 ABG O2 Saturation ABG Base Excess ABG Hemoglobin ABG Oxyhemoglobin ABG Sodium ABG Potassium ABG Chloride ABG Glucose Oxyhemoglobin Carboxyhemoglobin Sodium 136 L Potassium 2.4 L* Chloride 93.1 L Carbon Dioxide 36 H BUN 43 H Creatinine 5.4 H Glucose 167 H POC Glucose 162 H Hemoglobin A1c Lactic Acid Calcium 6.3 L Phosphorus Magnesium Ferritin Total Bilirubin AST ALT Lactate Dehydrogenase C-Reactive Protein Albumin Triglycerides Arterial Blood Glucose Arterial Blood Ionized Calcium Urine Creatinine Coronavirus (PCR) Crossmatch 02/08/21 02/08/21 02/08/21 11:44 17:53 18:56 WBC RBC Hgb Hct MCV MCH MCHC RDW Plt Count Lymph % (Auto) Lymph # (Auto) Seg Neutrophils % Seg Neuts % (Manual) Lymphocytes % (Manual) Monocytes % (Manual) Nucleated RBC % Seg Neutrophils # Seg Neutrophils # Man Lymphocytes # (Manual) Monocytes # (Manual) Eosinophils # (Manual) INR D-Dimer ABG pH POC ABG pCO2 POC ABG pO2 ABG pO2 ABG HCO3 ABG O2 Saturation ABG Base Excess ABG Hemoglobin ABG Oxyhemoglobin ABG Sodium ABG Potassium ABG Chloride ABG Glucose Oxyhemoglobin Carboxyhemoglobin Sodium Potassium 2.9 L* D Chloride Carbon Dioxide BUN Creatinine Glucose POC Glucose 164 H 154 H Hemoglobin A1c Lactic Acid Calcium Phosphorus Magnesium Ferritin Total Bilirubin AST ALT Lactate Dehydrogenase C-Reactive Protein Albumin Triglycerides Arterial Blood Glucose Arterial Blood Ionized Calcium Urine Creatinine Coronavirus (PCR) Crossmatch 02/08/21 02/08/21 02/09/21 23:24 23:58 03:21 WBC RBC Hgb Hct MCV MCH MCHC RDW Plt Count Lymph % (Auto) Lymph # (Auto) Seg Neutrophils % Seg Neuts % (Manual) Lymphocytes % (Manual) Monocytes % (Manual) Nucleated RBC % Seg Neutrophils # Seg Neutrophils # Man Lymphocytes # (Manual) Monocytes # (Manual) Eosinophils # (Manual) INR D-Dimer ABG pH 7.319 L POC ABG pCO2 63.3 H 68.3 H POC ABG pO2 71.2 L 76.5 L ABG pO2 ABG HCO3 ABG O2 Saturation ABG Base Excess ABG Hemoglobin 8.2 L 7.0 L ABG Oxyhemoglobin 91.8 L 92.2 L ABG Sodium 134.6 L 133.0 L ABG Potassium 2.3 L 3.1 L ABG Chloride 96.0 L 95.0 L ABG Glucose 184 H 154 H Oxyhemoglobin Carboxyhemoglobin Sodium Potassium Chloride Carbon Dioxide BUN Creatinine Glucose POC Glucose 152 H Hemoglobin A1c Lactic Acid Calcium Phosphorus Magnesium Ferritin Total Bilirubin AST ALT Lactate Dehydrogenase C-Reactive Protein Albumin Triglycerides Arterial Blood Glucose 184 H 154 H Arterial Blood Ionized Calcium 3.6 L 3.5 L Urine Creatinine Coronavirus (PCR) Crossmatch 02/09/21 02/09/21 02/09/21 05:10 05:10 06:04 WBC RBC 2.14 L Hgb 7.0 L Hct 20.5 L MCV 96 H MCH 33 H MCHC RDW Plt Count Lymph % (Auto) Lymph # (Auto) Seg Neutrophils % Seg Neuts % (Manual) 82.0 H Lymphocytes % (Manual) 9.0 L Monocytes % (Manual) Nucleated RBC % 1.0 H Seg Neutrophils # Seg Neutrophils # Man 8.9 H Lymphocytes # (Manual) 1.0 L Monocytes # (Manual) Eosinophils # (Manual) INR D-Dimer ABG pH POC ABG pCO2 POC ABG pO2 ABG pO2 ABG HCO3 ABG O2 Saturation ABG Base Excess ABG Hemoglobin ABG Oxyhemoglobin ABG Sodium ABG Potassium ABG Chloride ABG Glucose Oxyhemoglobin Carboxyhemoglobin Sodium 135 L Potassium 3.2 L Chloride 91.0 L Carbon Dioxide 32 H BUN 54 H Creatinine 6.6 H Glucose 163 H POC Glucose 149 H Hemoglobin A1c Lactic Acid Calcium 6.2 L Phosphorus Magnesium Ferritin Total Bilirubin AST ALT Lactate Dehydrogenase C-Reactive Protein Albumin Triglycerides Arterial Blood Glucose Arterial Blood Ionized Calcium Urine Creatinine Coronavirus (PCR) Crossmatch 02/09/21 02/09/21 02/09/21 12:02 13:32 13:40 WBC RBC Hgb Hct MCV MCH MCHC RDW Plt Count Lymph % (Auto) Lymph # (Auto) Seg Neutrophils % Seg Neuts % (Manual) Lymphocytes % (Manual) Monocytes % (Manual) Nucleated RBC % Seg Neutrophils # Seg Neutrophils # Man Lymphocytes # (Manual) Monocytes # (Manual) Eosinophils # (Manual) INR D-Dimer ABG pH POC ABG pCO2 POC ABG pO2 ABG pO2 ABG HCO3 ABG O2 Saturation ABG Base Excess ABG Hemoglobin ABG Oxyhemoglobin ABG Sodium ABG Potassium ABG Chloride ABG Glucose Oxyhemoglobin Carboxyhemoglobin Sodium Potassium Chloride Carbon Dioxide BUN Creatinine Glucose POC Glucose 147 H Hemoglobin A1c Lactic Acid Calcium Phosphorus Magnesium Ferritin Total Bilirubin AST ALT Lactate Dehydrogenase C-Reactive Protein Albumin Triglycerides 250 H Arterial Blood Glucose Arterial Blood Ionized Calcium Urine Creatinine Coronavirus (PCR) Crossmatch See Detail 02/09/21 02/09/21 02/10/21 18:06 23:42 04:00 WBC RBC Hgb Hct MCV MCH MCHC RDW Plt Count Lymph % (Auto) Lymph # (Auto) Seg Neutrophils % Seg Neuts % (Manual) Lymphocytes % (Manual) Monocytes % (Manual) Nucleated RBC % Seg Neutrophils # Seg Neutrophils # Man Lymphocytes # (Manual) Monocytes # (Manual) Eosinophils # (Manual) INR D-Dimer ABG pH POC ABG pCO2 65.8 H POC ABG pO2 68.0 L ABG pO2 ABG HCO3 ABG O2 Saturation ABG Base Excess ABG Hemoglobin 8.3 L ABG Oxyhemoglobin ABG Sodium 132.4 L ABG Potassium 2.9 L ABG Chloride 92.0 L ABG Glucose 174 H Oxyhemoglobin Carboxyhemoglobin Sodium Potassium Chloride Carbon Dioxide BUN Creatinine Glucose POC Glucose 152 H 147 H Hemoglobin A1c Lactic Acid Calcium Phosphorus Magnesium Ferritin Total Bilirubin AST ALT Lactate Dehydrogenase C-Reactive Protein Albumin Triglycerides Arterial Blood Glucose 174 H Arterial Blood Ionized Calcium 3.4 L Urine Creatinine Coronavirus (PCR) Crossmatch 02/10/21 02/10/21 02/10/21 05:32 11:29 14:08 WBC 12.5 H RBC 2.14 L Hgb 6.6 L Hct 20.2 L MCV MCH MCHC RDW Plt Count Lymph % (Auto) Lymph # (Auto) Seg Neutrophils % Seg Neuts % (Manual) Lymphocytes % (Manual) Monocytes % (Manual) Nucleated RBC % Seg Neutrophils # Seg Neutrophils # Man Lymphocytes # (Manual) Monocytes # (Manual) Eosinophils # (Manual) INR D-Dimer ABG pH POC ABG pCO2 POC ABG pO2 ABG pO2 ABG HCO3 ABG O2 Saturation ABG Base Excess ABG Hemoglobin ABG Oxyhemoglobin ABG Sodium ABG Potassium ABG Chloride ABG Glucose Oxyhemoglobin Carboxyhemoglobin Sodium Potassium Chloride Carbon Dioxide BUN Creatinine Glucose POC Glucose 167 H 147 H Hemoglobin A1c Lactic Acid Calcium Phosphorus Magnesium Ferritin Total Bilirubin AST ALT Lactate Dehydrogenase C-Reactive Protein Albumin Triglycerides Arterial Blood Glucose Arterial Blood Ionized Calcium Urine Creatinine Coronavirus (PCR) Crossmatch 02/10/21 02/10/21 02/10/21 14:08 18:11 22:32 WBC RBC Hgb 6.4 L Hct 19.1 L* MCV MCH MCHC RDW Plt Count Lymph % (Auto) Lymph # (Auto) Seg Neutrophils % Seg Neuts % (Manual) Lymphocytes % (Manual) Monocytes % (Manual) Nucleated RBC % Seg Neutrophils # Seg Neutrophils # Man Lymphocytes # (Manual) Monocytes # (Manual) Eosinophils # (Manual) INR D-Dimer ABG pH POC ABG pCO2 POC ABG pO2 ABG pO2 ABG HCO3 ABG O2 Saturation ABG Base Excess ABG Hemoglobin ABG Oxyhemoglobin ABG Sodium ABG Potassium ABG Chloride ABG Glucose Oxyhemoglobin Carboxyhemoglobin Sodium 136 L Potassium 2.9 L* Chloride 90.2 L Carbon Dioxide 33 H BUN 42 H Creatinine 7.5 H Glucose 155 H POC Glucose 173 H Hemoglobin A1c Lactic Acid Calcium 6.1 L Phosphorus Magnesium Ferritin Total Bilirubin AST ALT Lactate Dehydrogenase C-Reactive Protein Albumin Triglycerides Arterial Blood Glucose Arterial Blood Ionized Calcium Urine Creatinine Coronavirus (PCR) Crossmatch 02/11/21 02/11/21 02/11/21 00:28 04:05 04:30 WBC RBC Hgb Hct MCV MCH MCHC RDW Plt Count Lymph % (Auto) Lymph # (Auto) Seg Neutrophils % Seg Neuts % (Manual) Lymphocytes % (Manual) Monocytes % (Manual) Nucleated RBC % Seg Neutrophils # Seg Neutrophils # Man Lymphocytes # (Manual) Monocytes # (Manual) Eosinophils # (Manual) INR D-Dimer ABG pH 7.307 L POC ABG pCO2 72.2 H POC ABG pO2 72.3 L ABG pO2 ABG HCO3 ABG O2 Saturation ABG Base Excess ABG Hemoglobin 8.2 L ABG Oxyhemoglobin ABG Sodium 132.3 L ABG Potassium 3.2 L ABG Chloride 91.0 L ABG Glucose 197 H Oxyhemoglobin Carboxyhemoglobin Sodium 135 L Potassium 3.3 L Chloride 87.1 L Carbon Dioxide 36 H BUN 71 H Creatinine 7.9 H Glucose 263 H POC Glucose 192 H Hemoglobin A1c Lactic Acid Calcium 6.2 L Phosphorus Magnesium Ferritin Total Bilirubin AST ALT Lactate Dehydrogenase C-Reactive Protein Albumin Triglycerides Arterial Blood Glucose 197 H Arterial Blood Ionized Calcium 3.3 L Urine Creatinine Coronavirus (PCR) Crossmatch 02/11/21 02/11/21 02/11/21 04:30 05:47 08:27 WBC RBC 2.22 L Hgb 7.2 L Hct 21.0 L MCV MCH MCHC RDW Plt Count Lymph % (Auto) 8.7 L Lymph # (Auto) 0.9 L Seg Neutrophils % 85.5 H Seg Neuts % (Manual) Lymphocytes % (Manual) Monocytes % (Manual) Nucleated RBC % Seg Neutrophils # 9.2 H Seg Neutrophils # Man Lymphocytes # (Manual) Monocytes # (Manual) Eosinophils # (Manual) INR 1.17 H D-Dimer 1930.92 H ABG pH POC ABG pCO2 POC ABG pO2 ABG pO2 ABG HCO3 ABG O2 Saturation ABG Base Excess ABG Hemoglobin ABG Oxyhemoglobin ABG Sodium ABG Potassium ABG Chloride ABG Glucose Oxyhemoglobin Carboxyhemoglobin Sodium Potassium Chloride Carbon Dioxide BUN Creatinine Glucose POC Glucose 189 H Hemoglobin A1c Lactic Acid Calcium Phosphorus Magnesium Ferritin Total Bilirubin AST ALT Lactate Dehydrogenase C-Reactive Protein Albumin Triglycerides Arterial Blood Glucose Arterial Blood Ionized Calcium Urine Creatinine Coronavirus (PCR) Crossmatch 02/11/21 02/11/21 02/11/21 09:00 09:00 13:18 WBC RBC Hgb Hct MCV MCH MCHC RDW Plt Count Lymph % (Auto) Lymph # (Auto) Seg Neutrophils % Seg Neuts % (Manual) Lymphocytes % (Manual) Monocytes % (Manual) Nucleated RBC % Seg Neutrophils # Seg Neutrophils # Man Lymphocytes # (Manual) Monocytes # (Manual) Eosinophils # (Manual) INR D-Dimer ABG pH POC ABG pCO2 POC ABG pO2 ABG pO2 ABG HCO3 ABG O2 Saturation ABG Base Excess ABG Hemoglobin ABG Oxyhemoglobin ABG Sodium ABG Potassium ABG Chloride ABG Glucose Oxyhemoglobin Carboxyhemoglobin Sodium Potassium Chloride Carbon Dioxide BUN Creatinine Glucose 126 H POC Glucose 160 H Hemoglobin A1c Lactic Acid Calcium Phosphorus Magnesium Ferritin 1253.0 H Total Bilirubin AST ALT Lactate Dehydrogenase 649 H C-Reactive Protein 12.60 H Albumin Triglycerides Arterial Blood Glucose Arterial Blood Ionized Calcium Urine Creatinine Coronavirus (PCR) Crossmatch 02/11/21 02/11/21 02/11/21 14:30 16:59 22:34 WBC RBC Hgb 7.1 L 6.7 L Hct 20.5 L 19.9 L* MCV MCH MCHC RDW Plt Count Lymph % (Auto) Lymph # (Auto) Seg Neutrophils % Seg Neuts % (Manual) Lymphocytes % (Manual) Monocytes % (Manual) Nucleated RBC % Seg Neutrophils # Seg Neutrophils # Man Lymphocytes # (Manual) Monocytes # (Manual) Eosinophils # (Manual) INR D-Dimer ABG pH POC ABG pCO2 POC ABG pO2 ABG pO2 ABG HCO3 ABG O2 Saturation ABG Base Excess ABG Hemoglobin ABG Oxyhemoglobin ABG Sodium ABG Potassium ABG Chloride ABG Glucose Oxyhemoglobin Carboxyhemoglobin Sodium Potassium Chloride Carbon Dioxide BUN Creatinine Glucose POC Glucose 151 H Hemoglobin A1c Lactic Acid Calcium Phosphorus Magnesium Ferritin Total Bilirubin AST ALT Lactate Dehydrogenase C-Reactive Protein Albumin Triglycerides Arterial Blood Glucose Arterial Blood Ionized Calcium Urine Creatinine Coronavirus (PCR) Crossmatch 02/11/21 02/12/21 02/12/21 23:42 04:41 05:19 WBC RBC Hgb Hct MCV MCH MCHC RDW Plt Count Lymph % (Auto) Lymph # (Auto) Seg Neutrophils % Seg Neuts % (Manual) Lymphocytes % (Manual) Monocytes % (Manual) Nucleated RBC % Seg Neutrophils # Seg Neutrophils # Man Lymphocytes # (Manual) Monocytes # (Manual) Eosinophils # (Manual) INR D-Dimer ABG pH POC ABG pCO2 POC ABG pO2 ABG pO2 69.0 L ABG HCO3 32.5 H ABG O2 Saturation ABG Base Excess 7.7 H ABG Hemoglobin 5.1 L ABG Oxyhemoglobin ABG Sodium ABG Potassium ABG Chloride ABG Glucose Oxyhemoglobin 94.7 L Carboxyhemoglobin Sodium Potassium Chloride Carbon Dioxide BUN Creatinine Glucose POC Glucose 165 H 153 H Hemoglobin A1c Lactic Acid Calcium Phosphorus Magnesium Ferritin Total Bilirubin AST ALT Lactate Dehydrogenase C-Reactive Protein Albumin Triglycerides Arterial Blood Glucose Arterial Blood Ionized Calcium Urine Creatinine Coronavirus (PCR) Crossmatch 02/12/21 02/12/21 02/12/21 06:35 06:35 08:40 WBC RBC 2.21 L Hgb 7.2 L Hct 20.7 L MCV MCH 33 H MCHC 35 H RDW Plt Count Lymph % (Auto) Lymph # (Auto) Seg Neutrophils % Seg Neuts % (Manual) Lymphocytes % (Manual) Monocytes % (Manual) Nucleated RBC % Seg Neutrophils # Seg Neutrophils # Man Lymphocytes # (Manual) Monocytes # (Manual) Eosinophils # (Manual) INR D-Dimer ABG pH POC ABG pCO2 POC ABG pO2 ABG pO2 ABG HCO3 ABG O2 Saturation ABG Base Excess ABG Hemoglobin ABG Oxyhemoglobin ABG Sodium ABG Potassium ABG Chloride ABG Glucose Oxyhemoglobin Carboxyhemoglobin Sodium 135 L Potassium 3.4 L Chloride 91.8 L Carbon Dioxide 36 H BUN 57 H Creatinine 6.8 H Glucose 163 H POC Glucose Hemoglobin A1c Lactic Acid Calcium 7.0 L Phosphorus Magnesium 1.60 L Ferritin Total Bilirubin AST ALT Lactate Dehydrogenase C-Reactive Protein Albumin Triglycerides Arterial Blood Glucose Arterial Blood Ionized Calcium Urine Creatinine Coronavirus (PCR) Crossmatch 02/12/21 02/12/21 02/12/21 10:45 12:04 17:19 WBC RBC Hgb Hct MCV MCH MCHC RDW Plt Count Lymph % (Auto) Lymph # (Auto) Seg Neutrophils % Seg Neuts % (Manual) Lymphocytes % (Manual) Monocytes % (Manual) Nucleated RBC % Seg Neutrophils # Seg Neutrophils # Man Lymphocytes # (Manual) Monocytes # (Manual) Eosinophils # (Manual) INR D-Dimer ABG pH POC ABG pCO2 POC ABG pO2 ABG pO2 ABG HCO3 ABG O2 Saturation ABG Base Excess ABG Hemoglobin ABG Oxyhemoglobin ABG Sodium ABG Potassium ABG Chloride ABG Glucose Oxyhemoglobin Carboxyhemoglobin Sodium Potassium Chloride Carbon Dioxide BUN Creatinine Glucose POC Glucose 165 H 165 H Hemoglobin A1c Lactic Acid Calcium Phosphorus Magnesium Ferritin Total Bilirubin AST ALT Lactate Dehydrogenase C-Reactive Protein Albumin Triglycerides 182 H Arterial Blood Glucose Arterial Blood Ionized Calcium Urine Creatinine Coronavirus (PCR) Crossmatch 02/12/21 02/13/21 02/13/21 23:18 05:00 05:36 WBC RBC Hgb Hct MCV MCH MCHC RDW Plt Count Lymph % (Auto) Lymph # (Auto) Seg Neutrophils % Seg Neuts % (Manual) Lymphocytes % (Manual) Monocytes % (Manual) Nucleated RBC % Seg Neutrophils # Seg Neutrophils # Man Lymphocytes # (Manual) Monocytes # (Manual) Eosinophils # (Manual) INR D-Dimer ABG pH POC ABG pCO2 60.8 H POC ABG pO2 76.4 L ABG pO2 ABG HCO3 ABG O2 Saturation ABG Base Excess ABG Hemoglobin 7.4 L ABG Oxyhemoglobin ABG Sodium 133.2 L ABG Potassium 3.3 L ABG Chloride 96.0 L ABG Glucose 168 H Oxyhemoglobin Carboxyhemoglobin Sodium Potassium Chloride Carbon Dioxide BUN Creatinine Glucose POC Glucose 163 H 151 H Hemoglobin A1c Lactic Acid Calcium Phosphorus Magnesium Ferritin Total Bilirubin AST ALT Lactate Dehydrogenase C-Reactive Protein Albumin Triglycerides Arterial Blood Glucose 168 H Arterial Blood Ionized Calcium 4.3 L Urine Creatinine Coronavirus (PCR) Crossmatch 02/13/21 02/13/21 02/13/21 06:40 06:40 06:40 WBC RBC 2.19 L Hgb 7.0 L Hct 20.8 L MCV 95 H MCH MCHC RDW Plt Count Lymph % (Auto) Lymph # (Auto) Seg Neutrophils % Seg Neuts % (Manual) Lymphocytes % (Manual) Monocytes % (Manual) Nucleated RBC % Seg Neutrophils # Seg Neutrophils # Man Lymphocytes # (Manual) Monocytes # (Manual) Eosinophils # (Manual) INR D-Dimer ABG pH POC ABG pCO2 POC ABG pO2 ABG pO2 ABG HCO3 ABG O2 Saturation ABG Base Excess ABG Hemoglobin ABG Oxyhemoglobin ABG Sodium ABG Potassium ABG Chloride ABG Glucose Oxyhemoglobin Carboxyhemoglobin Sodium 135 L Potassium 3.4 L Chloride 93.0 L Carbon Dioxide 32 H BUN 46 H Creatinine 5.8 H Glucose 148 H POC Glucose Hemoglobin A1c Lactic Acid Calcium 7.9 L Phosphorus Magnesium Ferritin Total Bilirubin AST ALT Lactate Dehydrogenase C-Reactive Protein 16.80 H Albumin Triglycerides Arterial Blood Glucose Arterial Blood Ionized Calcium Urine Creatinine Coronavirus (PCR) Crossmatch 04/16/21 04/16/21 04/16/21 06:40 07:38 07:38 WBC RBC Hgb Hct MCV MCH MCHC RDW Plt Count Lymph % (Auto) Lymph # (Auto) Seg Neutrophils % Seg Neuts % (Manual) Lymphocytes % (Manual) Monocytes % (Manual) Nucleated RBC % Seg Neutrophils # Seg Neutrophils # Man Lymphocytes # (Manual) Monocytes # (Manual) Eosinophils # (Manual) INR D-Dimer 1722.16 H ABG pH POC ABG pCO2 POC ABG pO2 ABG pO2 ABG HCO3 ABG O2 Saturation ABG Base Excess ABG Hemoglobin ABG Oxyhemoglobin ABG Sodium ABG Potassium ABG Chloride ABG Glucose Oxyhemoglobin Carboxyhemoglobin Sodium Potassium Chloride Carbon Dioxide BUN Creatinine Glucose POC Glucose Hemoglobin A1c Lactic Acid Calcium Phosphorus Magnesium 1.60 L Ferritin 976.5 H Total Bilirubin AST ALT Lactate Dehydrogenase C-Reactive Protein Albumin Triglycerides Arterial Blood Glucose Arterial Blood Ionized Calcium Urine Creatinine Coronavirus (PCR) Crossmatch 02/13/21 02/13/21 02/13/21 12:24 16:57 23:32 WBC RBC Hgb Hct MCV MCH MCHC RDW Plt Count Lymph % (Auto) Lymph # (Auto) Seg Neutrophils % Seg Neuts % (Manual) Lymphocytes % (Manual) Monocytes % (Manual) Nucleated RBC % Seg Neutrophils # Seg Neutrophils # Man Lymphocytes # (Manual) Monocytes # (Manual) Eosinophils # (Manual) INR D-Dimer ABG pH POC ABG pCO2 POC ABG pO2 ABG pO2 ABG HCO3 ABG O2 Saturation ABG Base Excess ABG Hemoglobin ABG Oxyhemoglobin ABG Sodium ABG Potassium ABG Chloride ABG Glucose Oxyhemoglobin Carboxyhemoglobin Sodium Potassium Chloride Carbon Dioxide BUN Creatinine Glucose POC Glucose 141 H 156 H 161 H Hemoglobin A1c Lactic Acid Calcium Phosphorus Magnesium Ferritin Total Bilirubin AST ALT Lactate Dehydrogenase C-Reactive Protein Albumin Triglycerides Arterial Blood Glucose Arterial Blood Ionized Calcium Urine Creatinine Coronavirus (PCR) Crossmatch 02/14/21 02/14/21 02/14/21 04:00 05:41 11:00 WBC RBC 2.14 L Hgb 6.9 L Hct 20.7 L MCV 97 H MCH 33 H MCHC RDW Plt Count Lymph % (Auto) Lymph # (Auto) Seg Neutrophils % Seg Neuts % (Manual) Lymphocytes % (Manual) Monocytes % (Manual) Nucleated RBC % Seg Neutrophils # Seg Neutrophils # Man Lymphocytes # (Manual) Monocytes # (Manual) Eosinophils # (Manual) INR D-Dimer ABG pH POC ABG pCO2 POC ABG pO2 ABG pO2 ABG HCO3 ABG O2 Saturation ABG Base Excess ABG Hemoglobin ABG Oxyhemoglobin ABG Sodium ABG Potassium ABG Chloride ABG Glucose Oxyhemoglobin Carboxyhemoglobin Sodium Potassium Chloride Carbon Dioxide BUN Creatinine Glucose POC Glucose 143 H Hemoglobin A1c Lactic Acid Calcium Phosphorus Magnesium Ferritin Total Bilirubin AST ALT Lactate Dehydrogenase C-Reactive Protein Albumin Triglycerides Arterial Blood Glucose Arterial Blood Ionized Calcium Urine Creatinine Coronavirus (PCR) Crossmatch See Detail 02/14/21 02/14/21 02/14/21 11:51 18:08 23:41 WBC RBC Hgb Hct MCV MCH MCHC RDW Plt Count Lymph % (Auto) Lymph # (Auto) Seg Neutrophils % Seg Neuts % (Manual) Lymphocytes % (Manual) Monocytes % (Manual) Nucleated RBC % Seg Neutrophils # Seg Neutrophils # Man Lymphocytes # (Manual) Monocytes # (Manual) Eosinophils # (Manual) INR D-Dimer ABG pH POC ABG pCO2 POC ABG pO2 ABG pO2 ABG HCO3 ABG O2 Saturation ABG Base Excess ABG Hemoglobin ABG Oxyhemoglobin ABG Sodium ABG Potassium ABG Chloride ABG Glucose Oxyhemoglobin Carboxyhemoglobin Sodium Potassium Chloride Carbon Dioxide BUN Creatinine Glucose POC Glucose 113 H 123 H 120 H Hemoglobin A1c Lactic Acid Calcium Phosphorus Magnesium Ferritin Total Bilirubin AST ALT Lactate Dehydrogenase C-Reactive Protein Albumin Triglycerides Arterial Blood Glucose Arterial Blood Ionized Calcium Urine Creatinine Coronavirus (PCR) Crossmatch 02/14/21 02/15/21 02/15/21 Unknown 05:00 05:00 WBC RBC Hgb Hct MCV MCH MCHC RDW Plt Count Lymph % (Auto) Lymph # (Auto) Seg Neutrophils % Seg Neuts % (Manual) Lymphocytes % (Manual) Monocytes % (Manual) Nucleated RBC % Seg Neutrophils # Seg Neutrophils # Man Lymphocytes # (Manual) Monocytes # (Manual) Eosinophils # (Manual) INR D-Dimer ABG pH POC ABG pCO2 53.4 H POC ABG pO2 61.8 L ABG pO2 ABG HCO3 ABG O2 Saturation ABG Base Excess ABG Hemoglobin 7.7 L ABG Oxyhemoglobin 88.8 L ABG Sodium ABG Potassium ABG Chloride ABG Glucose 143 H Oxyhemoglobin Carboxyhemoglobin 1.6 H Sodium Potassium Chloride 96.9 L Carbon Dioxide 33 H 31 H BUN 40 H 38 H Creatinine 5.2 H 4.8 H Glucose 152 H 132 H POC Glucose Hemoglobin A1c Lactic Acid Calcium 7.9 L Phosphorus Magnesium Ferritin Total Bilirubin AST ALT Lactate Dehydrogenase C-Reactive Protein Albumin Triglycerides Arterial Blood Glucose 143 H Arterial Blood Ionized Calcium Urine Creatinine Coronavirus (PCR) Crossmatch 02/15/21 02/15/21 02/15/21 05:00 05:27 12:05 WBC RBC 2.30 L Hgb 7.1 L Hct 22.1 L MCV 96 H MCH MCHC RDW 15.7 H Plt Count Lymph % (Auto) 11.0 L Lymph # (Auto) 1.1 L Seg Neutrophils % 83.0 H Seg Neuts % (Manual) Lymphocytes % (Manual) Monocytes % (Manual) Nucleated RBC % Seg Neutrophils # 8.6 H Seg Neutrophils # Man Lymphocytes # (Manual) Monocytes # (Manual) Eosinophils # (Manual) INR D-Dimer ABG pH POC ABG pCO2 POC ABG pO2 ABG pO2 ABG HCO3 ABG O2 Saturation ABG Base Excess ABG Hemoglobin ABG Oxyhemoglobin ABG Sodium ABG Potassium ABG Chloride ABG Glucose Oxyhemoglobin Carboxyhemoglobin Sodium Potassium Chloride Carbon Dioxide BUN Creatinine Glucose POC Glucose 133 H 123 H Hemoglobin A1c Lactic Acid Calcium Phosphorus Magnesium Ferritin Total Bilirubin AST ALT Lactate Dehydrogenase C-Reactive Protein Albumin Triglycerides Arterial Blood Glucose Arterial Blood Ionized Calcium Urine Creatinine Coronavirus (PCR) Crossmatch 02/15/21 02/15/21 02/16/21 17:08 23:52 03:44 WBC RBC Hgb Hct MCV MCH MCHC RDW Plt Count Lymph % (Auto) Lymph # (Auto) Seg Neutrophils % Seg Neuts % (Manual) Lymphocytes % (Manual) Monocytes % (Manual) Nucleated RBC % Seg Neutrophils # Seg Neutrophils # Man Lymphocytes # (Manual) Monocytes # (Manual) Eosinophils # (Manual) INR D-Dimer ABG pH 7.307 L POC ABG pCO2 59.5 H POC ABG pO2 63.2 L ABG pO2 ABG HCO3 ABG O2 Saturation ABG Base Excess ABG Hemoglobin 9.3 L ABG Oxyhemoglobin ABG Sodium ABG Potassium ABG Chloride ABG Glucose 148 H Oxyhemoglobin Carboxyhemoglobin Sodium Potassium Chloride Carbon Dioxide BUN Creatinine Glucose POC Glucose 129 H 136 H Hemoglobin A1c Lactic Acid Calcium Phosphorus Magnesium Ferritin Total Bilirubin AST ALT Lactate Dehydrogenase C-Reactive Protein Albumin Triglycerides Arterial Blood Glucose 148 H Arterial Blood Ionized Calcium Urine Creatinine Coronavirus (PCR) Crossmatch 02/16/21 02/16/21 02/16/21 05:26 06:00 12:14 WBC RBC Hgb Hct MCV MCH MCHC RDW Plt Count Lymph % (Auto) Lymph # (Auto) Seg Neutrophils % Seg Neuts % (Manual) Lymphocytes % (Manual) Monocytes % (Manual) Nucleated RBC % Seg Neutrophils # Seg Neutrophils # Man Lymphocytes # (Manual) Monocytes # (Manual) Eosinophils # (Manual) INR D-Dimer ABG pH POC ABG pCO2 POC ABG pO2 ABG pO2 ABG HCO3 ABG O2 Saturation ABG Base Excess ABG Hemoglobin ABG Oxyhemoglobin ABG Sodium ABG Potassium ABG Chloride ABG Glucose Oxyhemoglobin Carboxyhemoglobin Sodium Potassium Chloride Carbon Dioxide BUN 52 H Creatinine 6.0 H Glucose 138 H POC Glucose 135 H 128 H Hemoglobin A1c Lactic Acid Calcium Phosphorus Magnesium Ferritin Total Bilirubin AST ALT Lactate Dehydrogenase C-Reactive Protein Albumin Triglycerides Arterial Blood Glucose Arterial Blood Ionized Calcium Urine Creatinine Coronavirus (PCR) Crossmatch 02/16/21 02/16/21 02/16/21 17:09 17:09 17:09 WBC RBC Hgb Hct MCV MCH MCHC RDW Plt Count Lymph % (Auto) Lymph # (Auto) Seg Neutrophils % Seg Neuts % (Manual) Lymphocytes % (Manual) Monocytes % (Manual) Nucleated RBC % Seg Neutrophils # Seg Neutrophils # Man Lymphocytes # (Manual) Monocytes # (Manual) Eosinophils # (Manual) INR D-Dimer 4256.08 H ABG pH POC ABG pCO2 POC ABG pO2 ABG pO2 ABG HCO3 ABG O2 Saturation ABG Base Excess ABG Hemoglobin ABG Oxyhemoglobin ABG Sodium ABG Potassium ABG Chloride ABG Glucose Oxyhemoglobin Carboxyhemoglobin Sodium Potassium Chloride Carbon Dioxide BUN Creatinine Glucose POC Glucose Hemoglobin A1c Lactic Acid Calcium Phosphorus Magnesium Ferritin 980.6 H Total Bilirubin AST ALT Lactate Dehydrogenase 441 H C-Reactive Protein 20.20 H Albumin Triglycerides Arterial Blood Glucose Arterial Blood Ionized Calcium Urine Creatinine Coronavirus (PCR) Crossmatch 02/16/21 02/16/21 02/16/21 17:25 23:16 Unknown WBC RBC 2.19 L Hgb 7.1 L Hct 21.3 L MCV 98 H MCH 33 H MCHC RDW 16.0 H Plt Count Lymph % (Auto) Lymph # (Auto) Seg Neutrophils % Seg Neuts % (Manual) 85.0 H Lymphocytes % (Manual) 6.0 L Monocytes % (Manual) Nucleated RBC % 4.0 H Seg Neutrophils # Seg Neutrophils # Man Lymphocytes # (Manual) 0.5 L Monocytes # (Manual) Eosinophils # (Manual) INR D-Dimer ABG pH POC ABG pCO2 POC ABG pO2 ABG pO2 ABG HCO3 ABG O2 Saturation ABG Base Excess ABG Hemoglobin ABG Oxyhemoglobin ABG Sodium ABG Potassium ABG Chloride ABG Glucose Oxyhemoglobin Carboxyhemoglobin Sodium Potassium Chloride Carbon Dioxide BUN Creatinine Glucose POC Glucose 146 H 150 H Hemoglobin A1c Lactic Acid Calcium Phosphorus Magnesium Ferritin Total Bilirubin AST ALT Lactate Dehydrogenase C-Reactive Protein Albumin Triglycerides Arterial Blood Glucose Arterial Blood Ionized Calcium Urine Creatinine Coronavirus (PCR) Crossmatch 02/17/21 02/17/21 02/17/21 04:00 04:14 04:14 WBC RBC Hgb Hct MCV MCH MCHC RDW Plt Count Lymph % (Auto) Lymph # (Auto) Seg Neutrophils % Seg Neuts % (Manual) Lymphocytes % (Manual) Monocytes % (Manual) Nucleated RBC % Seg Neutrophils # Seg Neutrophils # Man Lymphocytes # (Manual) Monocytes # (Manual) Eosinophils # (Manual) INR D-Dimer 3183.35 H ABG pH 7.293 L POC ABG pCO2 59.5 H POC ABG pO2 68.1 L ABG pO2 ABG HCO3 ABG O2 Saturation ABG Base Excess ABG Hemoglobin 7.7 L ABG Oxyhemoglobin ABG Sodium 133.4 L ABG Potassium ABG Chloride ABG Glucose 143 H Oxyhemoglobin Carboxyhemoglobin Sodium 136 L Potassium Chloride 97.3 L Carbon Dioxide BUN 49 H Creatinine 5.3 H Glucose 139 H POC Glucose Hemoglobin A1c Lactic Acid Calcium Phosphorus Magnesium Ferritin Total Bilirubin AST ALT Lactate Dehydrogenase C-Reactive Protein Albumin Triglycerides Arterial Blood Glucose 143 H Arterial Blood Ionized Calcium Urine Creatinine Coronavirus (PCR) Crossmatch 02/17/21 02/17/21 02/17/21 04:14 04:14 04:14 WBC RBC 2.14 L Hgb 6.9 L Hct 21.0 L MCV 98 H MCH MCHC RDW 15.8 H Plt Count Lymph % (Auto) Lymph # (Auto) Seg Neutrophils % Seg Neuts % (Manual) Lymphocytes % (Manual) Monocytes % (Manual) Nucleated RBC % Seg Neutrophils # Seg Neutrophils # Man Lymphocytes # (Manual) Monocytes # (Manual) Eosinophils # (Manual) INR D-Dimer ABG pH POC ABG pCO2 POC ABG pO2 ABG pO2 ABG HCO3 ABG O2 Saturation ABG Base Excess ABG Hemoglobin ABG Oxyhemoglobin ABG Sodium ABG Potassium ABG Chloride ABG Glucose Oxyhemoglobin Carboxyhemoglobin Sodium Potassium Chloride Carbon Dioxide BUN Creatinine Glucose POC Glucose Hemoglobin A1c Lactic Acid Calcium Phosphorus Magnesium Ferritin 894.0 H Total Bilirubin AST ALT Lactate Dehydrogenase 399 H C-Reactive Protein 22.10 H Albumin Triglycerides Arterial Blood Glucose Arterial Blood Ionized Calcium Urine Creatinine Coronavirus (PCR) Crossmatch 02/17/21 02/17/21 02/17/21 06:06 07:45 12:25 WBC RBC Hgb 7.6 L Hct 22.8 L MCV MCH MCHC RDW Plt Count Lymph % (Auto) Lymph # (Auto) Seg Neutrophils % Seg Neuts % (Manual) Lymphocytes % (Manual) Monocytes % (Manual) Nucleated RBC % Seg Neutrophils # Seg Neutrophils # Man Lymphocytes # (Manual) Monocytes # (Manual) Eosinophils # (Manual) INR D-Dimer ABG pH POC ABG pCO2 POC ABG pO2 ABG pO2 ABG HCO3 ABG O2 Saturation ABG Base Excess ABG Hemoglobin ABG Oxyhemoglobin ABG Sodium ABG Potassium ABG Chloride ABG Glucose Oxyhemoglobin Carboxyhemoglobin Sodium Potassium Chloride Carbon Dioxide BUN Creatinine Glucose POC Glucose 134 H Hemoglobin A1c Lactic Acid Calcium Phosphorus Magnesium Ferritin Total Bilirubin AST ALT Lactate Dehydrogenase C-Reactive Protein Albumin Triglycerides Arterial Blood Glucose Arterial Blood Ionized Calcium Urine Creatinine Coronavirus (PCR) Crossmatch See Detail 02/17/21 02/17/21 02/17/21 12:35 17:56 23:34 WBC RBC Hgb Hct MCV MCH MCHC RDW Plt Count Lymph % (Auto) Lymph # (Auto) Seg Neutrophils % Seg Neuts % (Manual) Lymphocytes % (Manual) Monocytes % (Manual) Nucleated RBC % Seg Neutrophils # Seg Neutrophils # Man Lymphocytes # (Manual) Monocytes # (Manual) Eosinophils # (Manual) INR D-Dimer ABG pH POC ABG pCO2 POC ABG pO2 ABG pO2 ABG HCO3 ABG O2 Saturation ABG Base Excess ABG Hemoglobin ABG Oxyhemoglobin ABG Sodium ABG Potassium ABG Chloride ABG Glucose Oxyhemoglobin Carboxyhemoglobin Sodium Potassium Chloride Carbon Dioxide BUN Creatinine Glucose POC Glucose 114 H 128 H 120 H Hemoglobin A1c Lactic Acid Calcium Phosphorus Magnesium Ferritin Total Bilirubin AST ALT Lactate Dehydrogenase C-Reactive Protein Albumin Triglycerides Arterial Blood Glucose Arterial Blood Ionized Calcium Urine Creatinine Coronavirus (PCR) Crossmatch 02/18/21 02/18/21 02/18/21 04:03 04:55 05:02 WBC RBC 2.40 L Hgb 7.5 L Hct 23.1 L MCV 96 H MCH MCHC RDW 16.8 H Plt Count Lymph % (Auto) Lymph # (Auto) Seg Neutrophils % Seg Neuts % (Manual) Lymphocytes % (Manual) Monocytes % (Manual) Nucleated RBC % Seg Neutrophils # Seg Neutrophils # Man Lymphocytes # (Manual) Monocytes # (Manual) Eosinophils # (Manual) INR D-Dimer ABG pH 7.219 L POC ABG pCO2 58.7 H POC ABG pO2 64.2 L ABG pO2 ABG HCO3 ABG O2 Saturation ABG Base Excess ABG Hemoglobin ABG Oxyhemoglobin ABG Sodium 130.5 L ABG Potassium ABG Chloride ABG Glucose 147 H Oxyhemoglobin Carboxyhemoglobin Sodium 134 L Potassium Chloride 97.9 L Carbon Dioxide BUN 64 H Creatinine 6.5 H Glucose 135 H POC Glucose Hemoglobin A1c Lactic Acid Calcium 8.0 L Phosphorus Magnesium Ferritin Total Bilirubin AST ALT Lactate Dehydrogenase C-Reactive Protein Albumin Triglycerides Arterial Blood Glucose 147 H Arterial Blood Ionized Calcium Urine Creatinine Coronavirus (PCR) Crossmatch 02/18/21 02/18/21 02/18/21 05:27 10:00 11:51 WBC RBC Hgb Hct MCV MCH MCHC RDW Plt Count Lymph % (Auto) Lymph # (Auto) Seg Neutrophils % Seg Neuts % (Manual) Lymphocytes % (Manual) Monocytes % (Manual) Nucleated RBC % Seg Neutrophils # Seg Neutrophils # Man Lymphocytes # (Manual) Monocytes # (Manual) Eosinophils # (Manual) INR D-Dimer ABG pH POC ABG pCO2 POC ABG pO2 ABG pO2 ABG HCO3 ABG O2 Saturation ABG Base Excess ABG Hemoglobin ABG Oxyhemoglobin ABG Sodium ABG Potassium ABG Chloride ABG Glucose Oxyhemoglobin Carboxyhemoglobin Sodium Potassium Chloride Carbon Dioxide BUN Creatinine Glucose POC Glucose 130 H 123 H Hemoglobin A1c Lactic Acid Calcium Phosphorus Magnesium Ferritin Total Bilirubin AST ALT Lactate Dehydrogenase C-Reactive Protein Albumin Triglycerides Arterial Blood Glucose Arterial Blood Ionized Calcium Urine Creatinine Coronavirus (PCR) Positive A Crossmatch 02/18/21 02/18/21 02/19/21 18:10 23:35 05:00 WBC RBC Hgb Hct MCV MCH MCHC RDW Plt Count Lymph % (Auto) Lymph # (Auto) Seg Neutrophils % Seg Neuts % (Manual) Lymphocytes % (Manual) Monocytes % (Manual) Nucleated RBC % Seg Neutrophils # Seg Neutrophils # Man Lymphocytes # (Manual) Monocytes # (Manual) Eosinophils # (Manual) INR D-Dimer ABG pH 7.232 L POC ABG pCO2 64.3 H POC ABG pO2 ABG pO2 ABG HCO3 ABG O2 Saturation ABG Base Excess ABG Hemoglobin 8.1 L ABG Oxyhemoglobin ABG Sodium 133.5 L ABG Potassium ABG Chloride ABG Glucose 148 H Oxyhemoglobin Carboxyhemoglobin 1.6 H Sodium Potassium Chloride Carbon Dioxide BUN Creatinine Glucose POC Glucose 123 H 137 H Hemoglobin A1c Lactic Acid Calcium Phosphorus Magnesium Ferritin Total Bilirubin AST ALT Lactate Dehydrogenase C-Reactive Protein Albumin Triglycerides Arterial Blood Glucose 148 H Arterial Blood Ionized Calcium Urine Creatinine Coronavirus (PCR) Crossmatch 02/19/21 02/19/21 02/19/21 05:12 05:45 05:45 WBC RBC Hgb Hct MCV MCH MCHC RDW Plt Count Lymph % (Auto) Lymph # (Auto) Seg Neutrophils % Seg Neuts % (Manual) Lymphocytes % (Manual) Monocytes % (Manual) Nucleated RBC % Seg Neutrophils # Seg Neutrophils # Man Lymphocytes # (Manual) Monocytes # (Manual) Eosinophils # (Manual) INR D-Dimer 4840.82 H ABG pH POC ABG pCO2 POC ABG pO2 ABG pO2 ABG HCO3 ABG O2 Saturation ABG Base Excess ABG Hemoglobin ABG Oxyhemoglobin ABG Sodium ABG Potassium ABG Chloride ABG Glucose Oxyhemoglobin Carboxyhemoglobin Sodium 135 L Potassium Chloride 97.8 L Carbon Dioxide BUN 58 H Creatinine 5.6 H Glucose 140 H POC Glucose 134 H Hemoglobin A1c Lactic Acid Calcium Phosphorus Magnesium Ferritin Total Bilirubin AST ALT Lactate Dehydrogenase 345 H C-Reactive Protein 15.20 H Albumin Triglycerides 195 H Arterial Blood Glucose Arterial Blood Ionized Calcium Urine Creatinine Coronavirus (PCR) Crossmatch 02/19/21 02/19/21 02/19/21 05:45 12:00 17:48 WBC RBC Hgb Hct MCV MCH MCHC RDW Plt Count Lymph % (Auto) Lymph # (Auto) Seg Neutrophils % Seg Neuts % (Manual) Lymphocytes % (Manual) Monocytes % (Manual) Nucleated RBC % Seg Neutrophils # Seg Neutrophils # Man Lymphocytes # (Manual) Monocytes # (Manual) Eosinophils # (Manual) INR D-Dimer ABG pH POC ABG pCO2 POC ABG pO2 ABG pO2 ABG HCO3 ABG O2 Saturation ABG Base Excess ABG Hemoglobin ABG Oxyhemoglobin ABG Sodium ABG Potassium ABG Chloride ABG Glucose Oxyhemoglobin Carboxyhemoglobin Sodium Potassium Chloride Carbon Dioxide BUN Creatinine Glucose POC Glucose 122 H 119 H Hemoglobin A1c Lactic Acid Calcium Phosphorus Magnesium Ferritin 951.8 H Total Bilirubin AST ALT Lactate Dehydrogenase C-Reactive Protein Albumin Triglycerides Arterial Blood Glucose Arterial Blood Ionized Calcium Urine Creatinine Coronavirus (PCR) Crossmatch 02/20/21 02/20/21 02/20/21 03:20 04:00 11:48 WBC RBC Hgb Hct MCV MCH MCHC RDW Plt Count Lymph % (Auto) Lymph # (Auto) Seg Neutrophils % Seg Neuts % (Manual) Lymphocytes % (Manual) Monocytes % (Manual) Nucleated RBC % Seg Neutrophils # Seg Neutrophils # Man Lymphocytes # (Manual) Monocytes # (Manual) Eosinophils # (Manual) INR D-Dimer ABG pH 7.276 L POC ABG pCO2 57.3 H POC ABG pO2 71.0 L ABG pO2 ABG HCO3 ABG O2 Saturation ABG Base Excess ABG Hemoglobin 8.2 L ABG Oxyhemoglobin 91.9 L ABG Sodium 128.1 L ABG Potassium 4.8 H ABG Chloride ABG Glucose Oxyhemoglobin Carboxyhemoglobin 1.6 H Sodium 136 L Potassium Chloride Carbon Dioxide BUN 69 H Creatinine 6.4 H Glucose POC Glucose 131 H Hemoglobin A1c Lactic Acid Calcium 8.1 L Phosphorus Magnesium Ferritin Total Bilirubin AST ALT Lactate Dehydrogenase C-Reactive Protein Albumin Triglycerides Arterial Blood Glucose Arterial Blood Ionized Calcium 4.5 L Urine Creatinine Coronavirus (PCR) Crossmatch 02/20/21 02/20/21 02/21/21 18:05 23:28 02:53 WBC RBC Hgb Hct MCV MCH MCHC RDW Plt Count Lymph % (Auto) Lymph # (Auto) Seg Neutrophils % Seg Neuts % (Manual) Lymphocytes % (Manual) Monocytes % (Manual) Nucleated RBC % Seg Neutrophils # Seg Neutrophils # Man Lymphocytes # (Manual) Monocytes # (Manual) Eosinophils # (Manual) INR D-Dimer ABG pH 7.288 L POC ABG pCO2 52.7 H POC ABG pO2 81.5 L ABG pO2 ABG HCO3 ABG O2 Saturation ABG Base Excess ABG Hemoglobin 8.5 L ABG Oxyhemoglobin 93.6 L ABG Sodium 132.5 L ABG Potassium 4.6 H ABG Chloride ABG Glucose 106 H Oxyhemoglobin Carboxyhemoglobin 1.6 H Sodium Potassium Chloride Carbon Dioxide BUN Creatinine Glucose POC Glucose 114 H 118 H Hemoglobin A1c Lactic Acid Calcium Phosphorus Magnesium Ferritin Total Bilirubin AST ALT Lactate Dehydrogenase C-Reactive Protein Albumin Triglycerides Arterial Blood Glucose 106 H Arterial Blood Ionized Calcium 4.4 L Urine Creatinine Coronavirus (PCR) Crossmatch 02/21/21 02/21/21 02/21/21 05:29 11:42 16:35 WBC RBC Hgb Hct MCV MCH MCHC RDW Plt Count Lymph % (Auto) Lymph # (Auto) Seg Neutrophils % Seg Neuts % (Manual) Lymphocytes % (Manual) Monocytes % (Manual) Nucleated RBC % Seg Neutrophils # Seg Neutrophils # Man Lymphocytes # (Manual) Monocytes # (Manual) Eosinophils # (Manual) INR D-Dimer ABG pH POC ABG pCO2 POC ABG pO2 ABG pO2 ABG HCO3 ABG O2 Saturation ABG Base Excess ABG Hemoglobin ABG Oxyhemoglobin ABG Sodium ABG Potassium ABG Chloride ABG Glucose Oxyhemoglobin Carboxyhemoglobin Sodium Potassium 5.6 H Chloride 97.6 L Carbon Dioxide BUN 68 H Creatinine 5.7 H Glucose 160 H POC Glucose 111 H 131 H Hemoglobin A1c Lactic Acid Calcium 8.0 L Phosphorus 7.90 H Magnesium 2.60 H Ferritin Total Bilirubin AST ALT Lactate Dehydrogenase C-Reactive Protein Albumin Triglycerides Arterial Blood Glucose Arterial Blood Ionized Calcium Urine Creatinine Coronavirus (PCR) Crossmatch 02/21/21 02/22/21 02/22/21 17:17 00:04 04:22 WBC RBC Hgb Hct MCV MCH MCHC RDW Plt Count Lymph % (Auto) Lymph # (Auto) Seg Neutrophils % Seg Neuts % (Manual) Lymphocytes % (Manual) Monocytes % (Manual) Nucleated RBC % Seg Neutrophils # Seg Neutrophils # Man Lymphocytes # (Manual) Monocytes # (Manual) Eosinophils # (Manual) INR D-Dimer ABG pH 7.250 L POC ABG pCO2 60.1 H POC ABG pO2 57.6 L ABG pO2 ABG HCO3 ABG O2 Saturation ABG Base Excess ABG Hemoglobin 8.8 L ABG Oxyhemoglobin 87.0 L ABG Sodium 133.4 L ABG Potassium 5.1 H ABG Chloride ABG Glucose 124 H Oxyhemoglobin Carboxyhemoglobin Sodium Potassium Chloride Carbon Dioxide BUN Creatinine Glucose POC Glucose 135 H 121 H Hemoglobin A1c Lactic Acid Calcium Phosphorus Magnesium Ferritin Total Bilirubin AST ALT Lactate Dehydrogenase C-Reactive Protein Albumin Triglycerides Arterial Blood Glucose 124 H Arterial Blood Ionized Calcium Urine Creatinine Coronavirus (PCR) Crossmatch 02/22/21 02/22/21 02/22/21 05:33 09:41 09:41 WBC 13.2 H RBC 2.35 L Hgb 7.5 L Hct 22.7 L MCV 96 H MCH MCHC RDW 17.0 H Plt Count Lymph % (Auto) Lymph # (Auto) Seg Neutrophils % Seg Neuts % (Manual) 93.0 H Lymphocytes % (Manual) 4.0 L Monocytes % (Manual) Nucleated RBC % 1.0 H Seg Neutrophils # Seg Neutrophils # Man 12.3 H Lymphocytes # (Manual) 0.5 L Monocytes # (Manual) Eosinophils # (Manual) INR D-Dimer ABG pH POC ABG pCO2 POC ABG pO2 ABG pO2 ABG HCO3 ABG O2 Saturation ABG Base Excess ABG Hemoglobin ABG Oxyhemoglobin ABG Sodium ABG Potassium ABG Chloride ABG Glucose Oxyhemoglobin Carboxyhemoglobin Sodium Potassium 5.4 H Chloride Carbon Dioxide BUN 61 H Creatinine 5.5 H Glucose 117 H POC Glucose 114 H Hemoglobin A1c Lactic Acid Calcium 8.3 L Phosphorus Magnesium Ferritin Total Bilirubin AST ALT Lactate Dehydrogenase C-Reactive Protein Albumin Triglycerides Arterial Blood Glucose Arterial Blood Ionized Calcium Urine Creatinine Coronavirus (PCR) Crossmatch 02/22/21 02/22/21 02/23/21 12:08 17:06 04:00 WBC RBC Hgb Hct MCV MCH MCHC RDW Plt Count Lymph % (Auto) Lymph # (Auto) Seg Neutrophils % Seg Neuts % (Manual) Lymphocytes % (Manual) Monocytes % (Manual) Nucleated RBC % Seg Neutrophils # Seg Neutrophils # Man Lymphocytes # (Manual) Monocytes # (Manual) Eosinophils # (Manual) INR D-Dimer ABG pH 7.246 L POC ABG pCO2 POC ABG pO2 ABG pO2 119.4 H ABG HCO3 26.6 H ABG O2 Saturation ABG Base Excess ABG Hemoglobin 8.8 L ABG Oxyhemoglobin ABG Sodium ABG Potassium ABG Chloride ABG Glucose Oxyhemoglobin Carboxyhemoglobin Sodium Potassium Chloride Carbon Dioxide BUN Creatinine Glucose POC Glucose 133 H 114 H Hemoglobin A1c Lactic Acid Calcium Phosphorus Magnesium Ferritin Total Bilirubin AST ALT Lactate Dehydrogenase C-Reactive Protein Albumin Triglycerides Arterial Blood Glucose Arterial Blood Ionized Calcium Urine Creatinine Coronavirus (PCR) Crossmatch 02/23/21 02/23/21 02/24/21 06:20 11:42 03:43 WBC RBC Hgb Hct MCV MCH MCHC RDW Plt Count Lymph % (Auto) Lymph # (Auto) Seg Neutrophils % Seg Neuts % (Manual) Lymphocytes % (Manual) Monocytes % (Manual) Nucleated RBC % Seg Neutrophils # Seg Neutrophils # Man Lymphocytes # (Manual) Monocytes # (Manual) Eosinophils # (Manual) INR D-Dimer ABG pH 7.287 L POC ABG pCO2 54.7 H POC ABG pO2 ABG pO2 ABG HCO3 ABG O2 Saturation ABG Base Excess ABG Hemoglobin 8.5 L ABG Oxyhemoglobin ABG Sodium 135.6 L ABG Potassium ABG Chloride ABG Glucose 117 H Oxyhemoglobin Carboxyhemoglobin Sodium Potassium Chloride 97.6 L Carbon Dioxide BUN 79 H Creatinine 6.2 H Glucose POC Glucose 108 H Hemoglobin A1c Lactic Acid Calcium 8.3 L Phosphorus Magnesium Ferritin Total Bilirubin AST ALT Lactate Dehydrogenase C-Reactive Protein Albumin Triglycerides Arterial Blood Glucose 117 H Arterial Blood Ionized Calcium Urine Creatinine Coronavirus (PCR) Crossmatch 02/24/21 02/24/21 02/24/21 04:25 04:25 04:25 WBC 11.5 H RBC 2.47 L Hgb 7.7 L Hct 23.5 L MCV 95 H MCH MCHC RDW 16.7 H Plt Count Lymph % (Auto) Lymph # (Auto) Seg Neutrophils % Seg Neuts % (Manual) 82.0 H Lymphocytes % (Manual) 3.0 L Monocytes % (Manual) 11.0 H Nucleated RBC % Seg Neutrophils # Seg Neutrophils # Man 9.4 H Lymphocytes # (Manual) 0.3 L Monocytes # (Manual) 1.3 H Eosinophils # (Manual) INR D-Dimer 4695.21 H ABG pH POC ABG pCO2 POC ABG pO2 ABG pO2 ABG HCO3 ABG O2 Saturation ABG Base Excess ABG Hemoglobin ABG Oxyhemoglobin ABG Sodium ABG Potassium ABG Chloride ABG Glucose Oxyhemoglobin Carboxyhemoglobin Sodium Potassium Chloride Carbon Dioxide BUN 68 H Creatinine 4.9 H Glucose 113 H POC Glucose Hemoglobin A1c Lactic Acid Calcium Phosphorus Magnesium Ferritin Total Bilirubin AST ALT Lactate Dehydrogenase C-Reactive Protein 7.20 H Albumin Triglycerides Arterial Blood Glucose Arterial Blood Ionized Calcium Urine Creatinine Coronavirus (PCR) Crossmatch 02/24/21 02/24/21 02/24/21 04:25 05:01 11:12 WBC RBC Hgb Hct MCV MCH MCHC RDW Plt Count Lymph % (Auto) Lymph # (Auto) Seg Neutrophils % Seg Neuts % (Manual) Lymphocytes % (Manual) Monocytes % (Manual) Nucleated RBC % Seg Neutrophils # Seg Neutrophils # Man Lymphocytes # (Manual) Monocytes # (Manual) Eosinophils # (Manual) INR D-Dimer ABG pH POC ABG pCO2 POC ABG pO2 ABG pO2 ABG HCO3 ABG O2 Saturation ABG Base Excess ABG Hemoglobin ABG Oxyhemoglobin ABG Sodium ABG Potassium ABG Chloride ABG Glucose Oxyhemoglobin Carboxyhemoglobin Sodium Potassium Chloride Carbon Dioxide BUN Creatinine Glucose POC Glucose 116 H 112 H Hemoglobin A1c Lactic Acid Calcium Phosphorus Magnesium Ferritin 1116.0 H Total Bilirubin AST ALT Lactate Dehydrogenase C-Reactive Protein Albumin Triglycerides Arterial Blood Glucose Arterial Blood Ionized Calcium Urine Creatinine Coronavirus (PCR) Crossmatch Assessment and Plan # Encephalopathy -pt. is off sedation >2 days none responsive -finding is suggestive of multifactorial toximetabolic and or infectious etiology -Seizure can not be excluded -Ct brain is unremarkable -EEG is ordered #Sepsis COVID-19 pneumonia Coag-neg Staph bacteremia #Acute hypoxic respiratory failure -intubated -off sedation #Acute kidney injury, HD initiated 02/03 Anemia Diabetes mellitus Hypertension Hyperlipidemia Chronic renal insufficiency Elevated D-dimer PLAN -EEG -Consider MRI brain -Treat underlying infection -correct electrolytes abn. - hemodialysis will follow
--- NOTE | 2021-02-24 12:15 | Progress Note ---
Assessment and Plan Acute Hypoxic respiratory failure COVID-19 PNA Severe sepsis with septic shock Acute kidney injury secondary to ATN Hyperkalemia Hypernatremia DM2 on insulin Anemia Plan: no indication for HD today Initiated on HD on 02/03/21 S/P Right IJ Trialysis dialysis catheter placement by Dr Reddy Strict I&O's monitoring Renally dose medications Assess dialysis needs daily Monitor for renal recovery Subjective Date of service: 02/24/21 Principal diagnosis: DEISI Interval history: s/p HD today Objective - Vital Signs Vital signs: Vital Signs - 12hr 02/24/21 02/24/21 02/24/21 00:30 00:31 01:00 Temperature Pulse Rate 103 H 103 H 102 H Pulse Rate [ From Monitor] Respiratory 32 H 34 H Rate Blood Pressure 133/72 133/72 134/77 O2 Sat by Pulse 96 96 87 Oximetry 02/24/21 02/24/21 02/24/21 01:30 02:00 02:30 Temperature Pulse Rate 102 H 104 H 103 H Pulse Rate [ From Monitor] Respiratory 27 H 35 H 35 H Rate Blood Pressure 134/77 138/73 138/73 O2 Sat by Pulse 96 87 96 Oximetry 02/24/21 02/24/21 02/24/21 03:00 03:25 03:30 Temperature Pulse Rate 100 H 103 H 102 H Pulse Rate [ From Monitor] Respiratory 32 H 26 H Rate Blood Pressure 133/75 133/75 133/75 O2 Sat by Pulse 91 97 97 Oximetry 02/24/21 02/24/21 02/24/21 04:00 04:30 05:00 Temperature 97.3 F L Pulse Rate 103 H 103 H 103 H Pulse Rate [ 103 H From Monitor] Respiratory 36 H 34 H 35 H Rate Blood Pressure 147/83 147/83 144/77 O2 Sat by Pulse 89 96 93 Oximetry 02/24/21 02/24/21 02/24/21 05:30 06:00 06:30 Temperature Pulse Rate 103 H 101 H 103 H Pulse Rate [ From Monitor] Respiratory 35 H 32 H 36 H Rate Blood Pressure 144/77 140/75 140/75 O2 Sat by Pulse 96 89 96 Oximetry 02/24/21 02/24/21 02/24/21 07:00 07:30 08:00 Temperature 98 F Pulse Rate 103 H 102 H 103 H Pulse Rate [ From Monitor] Respiratory 36 H 35 H 34 H Rate Blood Pressure 149/81 149/81 147/81 O2 Sat by Pulse 88 97 87 Oximetry 02/24/21 02/24/21 02/24/21 08:30 09:00 09:02 Temperature Pulse Rate 102 H 100 H 102 H Pulse Rate [ From Monitor] Respiratory 36 H 34 H Rate Blood Pressure 147/81 136/80 136/80 O2 Sat by Pulse 96 92 95 Oximetry - Lab 02/24/21 04:25 02/24/21 04:25 Most recent lab results ABG pH 7.287 (7.320-7.450) L 02/24/21 03:43 ABG pCO2 62.7 mm Hg 02/23/21 04:00 ABG pO2 119.4 mm Hg (80.0-90.0) H 02/23/21 04:00 ABG HCO3 26.6 mmol/L (20.0-26.0) H 02/23/21 04:00 ABG O2 Saturation 97.4 (0-100) 02/24/21 03:43 Calcium 8.6 mg/dL (8.4-10.2) 02/24/21 04:25 Phosphorus 7.90 mg/dL (2.5-4.5) H 02/21/21 16:35 Magnesium 2.60 mg/dL (1.7-2.3) H 02/21/21 16:35 Urine Creatinine 53.0 mg/dL (0.1-20.0) H 01/30/21 12:00 Urine Sodium 28 mmol/L 01/22/21 22:39 Medications & Allergies - Medications Allergies/Adverse Reactions: Allergies No Known Allergies Allergy (Unverified 03/12/20 13:41) Home Medications: Home Medications Medication Instructions Recorded Confirmed Last Taken Type Insulin NPH/Regular [Novolin 70/30] 18 unit SUB-Q TIDAC #1 vial 03/12/20 Unknown Rx Syringe-Needle,Insulin,0.5 ml 1 box MC TID #1 box 03/12/20 Unknown Rx [Insulin Syringe/Needle 0.5 ML] Active Medications: Generic Name Dose Route Start Last Admin Trade Name Freq PRN Reason Stop Dose Admin Acetaminophen 650 mg 01/24/21 12:58 02/15/21 18:06 Acetaminophen 325 Mg/10.15 Ml Oral Liqd Unit Dose FEEDTUBE 650 mg Q6H PRN Administration Pain, Mild (1-3) Lipase/Protease/Amylase 1 each 01/26/21 14:25 Lipase 10,500/Protease 25,000/Amylase 43,750 (Units) Dr Cap FEEDTUBE PRN PRN For Clogged Feeding Tube Dextrose 50 ml 01/27/21 07:24 Dextrose 50% In Water (25gm) 50 Ml Syringe IV Q30MIN PRN Hypoglycemia Protocol Fentanyl 50 mcg 01/22/21 22:39 02/10/21 13:46 Fentanyl 100 Mcg/2 Ml Inj IV 50 mcg Q10MIN PRN Administration ANALGESIA Heparin Sodium (Porcine) 2,000 unit 02/11/21 09:38 02/21/21 21:25 Heparin 10,000 Units/10 Ml Vial IV 2,000 unit SAGRARIO PRN Administration hemodialysis Heparin Sodium (Porcine) 5,000 unit 02/19/21 14:00 02/23/21 21:08 Heparin 5,000 Unit/1 Ml Vial SUB-Q 5,000 unit Q8HR CECE Administration Fentanyl Citrate 2,000 mcg in 100 mls @ 6.124 mls/hr 01/22/21 23:00 02/21/21 16:00 Fentanyl Drip Premix IV 0 mcg/kg/hr TITR CECE 0 mls/hr Titration Protocol 1 MCG/KG/HR Propofol 1,000 mg in 100 mls @ 3.674 mls/hr 01/22/21 23:45 02/21/21 08:30 Diprivan 10 Mg/Ml IV 0 mcg/kg/min TITR CECE 0 mls/hr Titration Protocol 5 MCG/KG/MIN Norepinephrine 4 mg in 250 mls @ 7.5 mls/hr 01/28/21 14:00 02/22/21 18:27 Levophed Drip 4 Mg/Ns 250 Ml IV 0 mcg/min TITR CECE 0 mls/hr Titration Protocol 2 MCG/MIN Dexmedetomidine HCl 1,000 mcg/ 260 mls @ 6.368 mls/hr 01/30/21 20:00 02/21/21 12:23 Sodium Chloride IV Infused TITRATE CECE Titration Protocol 0.2 MCG/KG/HR Sodium Chloride 100 mls @ 999 mls/hr 02/22/21 13:43 Nacl 0.9% IV SAGRARIO PRN Hypotension Lansoprazole 30 mg 02/18/21 10:00 02/24/21 10:26 Lansoprazole 30 Mg Solutab FEEDTUBE 30 mg QDAY CECE Administration Senna/Docusate Sodium 2 tab 02/17/21 11:00 02/24/21 07:59 Sennosides/Docusate Sodium 8.6/50 Mg Tab PO Not Given TID CECE Simple Syrup 15 ml 01/26/21 14:25 02/21/21 21:24 Simple Syrup 15 Ml FEEDTUBE 15 ml PRN PRN Administration Hypoglycemia Simple Syrup 30 ml 01/26/21 14:25 Simple Syrup 15 Ml FEEDTUBE PRN PRN Hypoglycemia Sodium Bicarbonate 325 mg 01/26/21 14:25 Sodium Bicarbonate 325 Mg Tab FEEDTUBE PRN PRN For Clogged Feeding Tube
--- NOTE | 2021-02-24 13:57 | Progress Note ---
Assessment and Plan - Patient Problems (1) Acute respiratory failure due to COVID-19 Current Visit: Yes Status: Acute (2) Acute respiratory failure with hypoxia Current Visit: Yes Status: Acute (3) Hypoxia Current Visit: Yes Status: Acute (4) Pneumonia Current Visit: Yes Status: Acute Qualifiers: Pneumonia type: due to unspecified organism Laterality: bilateral Lung location: unspecified part of lung Qualified Code(s): J18.9 - Pneumonia, unspecified organism (5) Respiratory failure Current Visit: Yes Status: Acute Qualifiers: Chronicity: acute Respiratory failure complication: hypoxia Qualified Code(s): J96.01 - Acute respiratory failure with hypoxia Subjective Principal diagnosis: DEISI Interval history: on vent [id number] Objective Vital Signs - 12hr 02/24/21 02/24/21 02/24/21 02:00 02:30 03:00 Temperature Pulse Rate 104 H 103 H 100 H Pulse Rate [ From Monitor] Respiratory 35 H 35 H 32 H Rate Blood Pressure 138/73 138/73 133/75 O2 Sat by Pulse 87 96 91 Oximetry 02/24/21 02/24/21 02/24/21 03:25 03:30 04:00 Temperature 97.3 F L Pulse Rate 103 H 102 H 103 H Pulse Rate [ 103 H From Monitor] Respiratory 26 H 36 H Rate Blood Pressure 133/75 133/75 147/83 O2 Sat by Pulse 97 97 89 Oximetry 02/24/21 02/24/21 02/24/21 04:30 05:00 05:30 Temperature Pulse Rate 103 H 103 H 103 H Pulse Rate [ From Monitor] Respiratory 34 H 35 H 35 H Rate Blood Pressure 147/83 144/77 144/77 O2 Sat by Pulse 96 93 96 Oximetry 02/24/21 02/24/21 02/24/21 06:00 06:30 07:00 Temperature Pulse Rate 101 H 103 H 103 H Pulse Rate [ From Monitor] Respiratory 32 H 36 H 36 H Rate Blood Pressure 140/75 140/75 149/81 O2 Sat by Pulse 89 96 88 Oximetry 02/24/21 02/24/21 02/24/21 07:30 08:00 08:30 Temperature 98 F Pulse Rate 102 H 103 H 102 H Pulse Rate [ From Monitor] Respiratory 35 H 34 H 36 H Rate Blood Pressure 149/81 147/81 147/81 O2 Sat by Pulse 97 87 96 Oximetry 02/24/21 02/24/21 02/24/21 09:00 09:02 12:53 Temperature Pulse Rate 100 H 102 H 104 H Pulse Rate [ From Monitor] Respiratory 34 H Rate Blood Pressure 136/80 136/80 137/73 O2 Sat by Pulse 92 95 94 Oximetry Constitutional: comatose Eyes: non-icteric ENT: other (orally intubated and sedated) Neck: supple Effort: mildly labored Ascultation: Bilateral: clear Percussion: Bilateral: not dull Cardiovascular: regular rate and rhythm (no mrg) Gastrointestinal: normoactive bowel sounds Integumentary: normal Extremities: no cyanosis, no edema, pink and warm Neurologic: unable to assess CBC and BMP: 02/24/21 04:25 02/24/21 04:25 ABG, PT/INR, D-dimer: ABG ABG pH 7.287 (7.320-7.450) L 02/24/21 03:43 POC ABG pCO2 54.7 mmHg (32.0-48.0) H 02/24/21 03:43 ABG pCO2 62.7 mm Hg 02/23/21 04:00 POC ABG pO2 107.8 mmHg (83-108) 02/24/21 03:43 ABG pO2 119.4 mm Hg (80.0-90.0) H 02/23/21 04:00 POC ABG HCO3 25.5 02/24/21 03:43 ABG O2 Saturation 97.4 (0-100) 02/24/21 03:43 PT/INR, D-dimer PT 14.9 Sec. (12.2-14.9) 02/11/21 08:27 INR 1.17 (0.87-1.13) H 02/11/21 08:27 D-Dimer 4695.21 ng/mlDDU (0-234) H 02/24/21 04:25 Abnormal lab findings: Abnormal Labs 01/22/21 01/22/21 01/22/21 22:39 22:57 22:57 WBC RBC Hgb Hct MCV MCH MCHC RDW Plt Count Lymph % (Auto) 6.6 L Lymph # (Auto) 0.5 L Seg Neutrophils % 87.6 H Seg Neuts % (Manual) Lymphocytes % (Manual) Monocytes % (Manual) Nucleated RBC % Seg Neutrophils # Seg Neutrophils # Man Lymphocytes # (Manual) Monocytes # (Manual) Eosinophils # (Manual) INR D-Dimer ABG pH POC ABG pCO2 POC ABG pO2 ABG pO2 ABG HCO3 ABG O2 Saturation ABG Base Excess ABG Hemoglobin ABG Oxyhemoglobin ABG Sodium ABG Potassium ABG Chloride ABG Glucose Oxyhemoglobin Carboxyhemoglobin Sodium 129 L Potassium 3.4 L Chloride 90.4 L Carbon Dioxide BUN 34 H Creatinine 1.5 H Glucose 146 H POC Glucose Hemoglobin A1c Lactic Acid Calcium 7.8 L Phosphorus Magnesium Ferritin Total Bilirubin AST 75 H ALT 57 H Lactate Dehydrogenase C-Reactive Protein Albumin 2.9 L Triglycerides Arterial Blood Glucose Arterial Blood Ionized Calcium Urine Creatinine 301.2 H Coronavirus (PCR) Crossmatch 01/22/21 01/22/21 01/22/21 22:57 22:57 22:57 WBC RBC Hgb Hct MCV MCH MCHC RDW Plt Count Lymph % (Auto) Lymph # (Auto) Seg Neutrophils % Seg Neuts % (Manual) Lymphocytes % (Manual) Monocytes % (Manual) Nucleated RBC % Seg Neutrophils # Seg Neutrophils # Man Lymphocytes # (Manual) Monocytes # (Manual) Eosinophils # (Manual) INR D-Dimer 1173.89 H ABG pH POC ABG pCO2 POC ABG pO2 ABG pO2 ABG HCO3 ABG O2 Saturation ABG Base Excess ABG Hemoglobin ABG Oxyhemoglobin ABG Sodium ABG Potassium ABG Chloride ABG Glucose Oxyhemoglobin Carboxyhemoglobin Sodium Potassium Chloride Carbon Dioxide BUN Creatinine Glucose 149 H POC Glucose Hemoglobin A1c Lactic Acid 2.10 H* Calcium Phosphorus Magnesium Ferritin Total Bilirubin AST ALT Lactate Dehydrogenase 685 H C-Reactive Protein 30.40 H Albumin Triglycerides Arterial Blood Glucose Arterial Blood Ionized Calcium Urine Creatinine Coronavirus (PCR) Crossmatch 01/22/21 01/23/21 01/23/21 22:57 08:41 10:01 WBC RBC Hgb Hct MCV MCH MCHC RDW Plt Count Lymph % (Auto) Lymph # (Auto) Seg Neutrophils % Seg Neuts % (Manual) Lymphocytes % (Manual) Monocytes % (Manual) Nucleated RBC % Seg Neutrophils # Seg Neutrophils # Man Lymphocytes # (Manual) Monocytes # (Manual) Eosinophils # (Manual) INR D-Dimer ABG pH POC ABG pCO2 POC ABG pO2 ABG pO2 ABG HCO3 ABG O2 Saturation ABG Base Excess ABG Hemoglobin ABG Oxyhemoglobin ABG Sodium ABG Potassium ABG Chloride ABG Glucose Oxyhemoglobin Carboxyhemoglobin Sodium 131 L Potassium Chloride 88.7 L Carbon Dioxide 18 L BUN 36 H Creatinine 1.6 H Glucose 147 H POC Glucose Hemoglobin A1c Lactic Acid Calcium 7.5 L Phosphorus Magnesium Ferritin 1207.0 H Total Bilirubin AST ALT Lactate Dehydrogenase C-Reactive Protein Albumin Triglycerides Arterial Blood Glucose Arterial Blood Ionized Calcium Urine Creatinine Coronavirus (PCR) Positive A Crossmatch 01/23/21 01/23/21 01/24/21 20:49 Unknown 00:10 WBC RBC Hgb Hct MCV MCH MCHC RDW Plt Count Lymph % (Auto) Lymph # (Auto) Seg Neutrophils % Seg Neuts % (Manual) Lymphocytes % (Manual) Monocytes % (Manual) Nucleated RBC % Seg Neutrophils # Seg Neutrophils # Man Lymphocytes # (Manual) Monocytes # (Manual) Eosinophils # (Manual) INR D-Dimer ABG pH POC ABG pCO2 POC ABG pO2 ABG pO2 165.4 H ABG HCO3 ABG O2 Saturation ABG Base Excess -2.5 L ABG Hemoglobin ABG Oxyhemoglobin ABG Sodium ABG Potassium ABG Chloride ABG Glucose Oxyhemoglobin Carboxyhemoglobin Sodium 130 L Potassium Chloride 91.0 L Carbon Dioxide 20 L BUN 52 H Creatinine 3.8 H D Glucose 150 H POC Glucose 125 H Hemoglobin A1c Lactic Acid Calcium 8.0 L Phosphorus Magnesium Ferritin Total Bilirubin AST 42 H ALT Lactate Dehydrogenase C-Reactive Protein Albumin 2.4 L Triglycerides Arterial Blood Glucose Arterial Blood Ionized Calcium Urine Creatinine Coronavirus (PCR) Crossmatch 01/24/21 01/24/21 01/24/21 05:05 05:05 05:05 WBC 14.0 H RBC Hgb Hct MCV 95 H MCH 33 H MCHC RDW Plt Count Lymph % (Auto) Lymph # (Auto) Seg Neutrophils % Seg Neuts % (Manual) 91.0 H Lymphocytes % (Manual) 4.0 L Monocytes % (Manual) Nucleated RBC % Seg Neutrophils # Seg Neutrophils # Man 12.7 H Lymphocytes # (Manual) 0.6 L Monocytes # (Manual) Eosinophils # (Manual) INR D-Dimer 6159.48 H ABG pH POC ABG pCO2 POC ABG pO2 ABG pO2 ABG HCO3 ABG O2 Saturation ABG Base Excess ABG Hemoglobin ABG Oxyhemoglobin ABG Sodium ABG Potassium ABG Chloride ABG Glucose Oxyhemoglobin Carboxyhemoglobin Sodium Potassium Chloride Carbon Dioxide BUN Creatinine Glucose POC Glucose Hemoglobin A1c Lactic Acid Calcium Phosphorus Magnesium Ferritin 1178.0 H Total Bilirubin AST ALT Lactate Dehydrogenase C-Reactive Protein Albumin Triglycerides Arterial Blood Glucose Arterial Blood Ionized Calcium Urine Creatinine Coronavirus (PCR) Crossmatch 01/24/21 01/24/21 01/24/21 05:05 05:05 05:05 WBC RBC Hgb Hct MCV MCH MCHC RDW Plt Count Lymph % (Auto) Lymph # (Auto) Seg Neutrophils % Seg Neuts % (Manual) Lymphocytes % (Manual) Monocytes % (Manual) Nucleated RBC % Seg Neutrophils # Seg Neutrophils # Man Lymphocytes # (Manual) Monocytes # (Manual) Eosinophils # (Manual) INR D-Dimer ABG pH POC ABG pCO2 POC ABG pO2 ABG pO2 ABG HCO3 ABG O2 Saturation ABG Base Excess ABG Hemoglobin ABG Oxyhemoglobin ABG Sodium ABG Potassium ABG Chloride ABG Glucose Oxyhemoglobin Carboxyhemoglobin Sodium 132 L Potassium Chloride 93.1 L Carbon Dioxide 21 L BUN 57 H Creatinine 3.7 H Glucose 133 H POC Glucose Hemoglobin A1c Lactic Acid 2.20 H* Calcium 7.7 L Phosphorus Magnesium Ferritin Total Bilirubin AST ALT Lactate Dehydrogenase 658 H C-Reactive Protein 33.20 H Albumin 2.4 L Triglycerides Arterial Blood Glucose Arterial Blood Ionized Calcium Urine Creatinine Coronavirus (PCR) Crossmatch 01/24/21 01/24/21 01/24/21 05:34 06:00 17:35 WBC RBC Hgb Hct MCV MCH MCHC RDW Plt Count Lymph % (Auto) Lymph # (Auto) Seg Neutrophils % Seg Neuts % (Manual) Lymphocytes % (Manual) Monocytes % (Manual) Nucleated RBC % Seg Neutrophils # Seg Neutrophils # Man Lymphocytes # (Manual) Monocytes # (Manual) Eosinophils # (Manual) INR D-Dimer ABG pH POC ABG pCO2 POC ABG pO2 ABG pO2 ABG HCO3 ABG O2 Saturation ABG Base Excess ABG Hemoglobin ABG Oxyhemoglobin ABG Sodium ABG Potassium ABG Chloride ABG Glucose Oxyhemoglobin Carboxyhemoglobin Sodium Potassium Chloride Carbon Dioxide BUN Creatinine Glucose POC Glucose 136 H 137 H Hemoglobin A1c Lactic Acid Calcium Phosphorus Magnesium 2.80 H Ferritin Total Bilirubin AST ALT Lactate Dehydrogenase C-Reactive Protein Albumin Triglycerides Arterial Blood Glucose Arterial Blood Ionized Calcium Urine Creatinine Coronavirus (PCR) Crossmatch 01/25/21 01/25/21 01/25/21 04:15 05:40 05:40 WBC RBC Hgb Hct MCV 95 H MCH 33 H MCHC 35 H RDW Plt Count Lymph % (Auto) Lymph # (Auto) Seg Neutrophils % Seg Neuts % (Manual) 95.0 H Lymphocytes % (Manual) 3.0 L Monocytes % (Manual) Nucleated RBC % Seg Neutrophils # Seg Neutrophils # Man 7.8 H Lymphocytes # (Manual) 0.2 L Monocytes # (Manual) Eosinophils # (Manual) INR D-Dimer ABG pH POC ABG pCO2 POC ABG pO2 63.2 L ABG pO2 ABG HCO3 ABG O2 Saturation ABG Base Excess ABG Hemoglobin ABG Oxyhemoglobin 89.6 L ABG Sodium ABG Potassium ABG Chloride ABG Glucose 165 H Oxyhemoglobin Carboxyhemoglobin 0.3 L Sodium Potassium Chloride Carbon Dioxide BUN 67 H Creatinine 3.4 H Glucose 153 H POC Glucose Hemoglobin A1c Lactic Acid Calcium 7.5 L Phosphorus Magnesium Ferritin Total Bilirubin 1.40 H AST 62 H ALT Lactate Dehydrogenase C-Reactive Protein Albumin 2.6 L Triglycerides Arterial Blood Glucose 165 H Arterial Blood Ionized Calcium 4.3 L Urine Creatinine Coronavirus (PCR) Crossmatch 01/25/21 01/25/21 01/25/21 05:59 12:00 17:17 WBC RBC Hgb Hct MCV MCH MCHC RDW Plt Count Lymph % (Auto) Lymph # (Auto) Seg Neutrophils % Seg Neuts % (Manual) Lymphocytes % (Manual) Monocytes % (Manual) Nucleated RBC % Seg Neutrophils # Seg Neutrophils # Man Lymphocytes # (Manual) Monocytes # (Manual) Eosinophils # (Manual) INR D-Dimer ABG pH POC ABG pCO2 POC ABG pO2 ABG pO2 ABG HCO3 ABG O2 Saturation ABG Base Excess ABG Hemoglobin ABG Oxyhemoglobin ABG Sodium ABG Potassium ABG Chloride ABG Glucose Oxyhemoglobin Carboxyhemoglobin Sodium Potassium Chloride Carbon Dioxide BUN Creatinine Glucose POC Glucose 140 H 143 H 149 H Hemoglobin A1c Lactic Acid Calcium Phosphorus Magnesium Ferritin Total Bilirubin AST ALT Lactate Dehydrogenase C-Reactive Protein Albumin Triglycerides Arterial Blood Glucose Arterial Blood Ionized Calcium Urine Creatinine Coronavirus (PCR) Crossmatch 01/25/21 01/26/21 01/26/21 23:41 03:43 05:46 WBC RBC Hgb Hct MCV MCH MCHC RDW Plt Count Lymph % (Auto) Lymph # (Auto) Seg Neutrophils % Seg Neuts % (Manual) Lymphocytes % (Manual) Monocytes % (Manual) Nucleated RBC % Seg Neutrophils # Seg Neutrophils # Man Lymphocytes # (Manual) Monocytes # (Manual) Eosinophils # (Manual) INR D-Dimer ABG pH POC ABG pCO2 POC ABG pO2 70.0 L ABG pO2 ABG HCO3 ABG O2 Saturation ABG Base Excess ABG Hemoglobin ABG Oxyhemoglobin 91.9 L ABG Sodium ABG Potassium ABG Chloride 109.0 H ABG Glucose 165 H Oxyhemoglobin Carboxyhemoglobin Sodium Potassium Chloride Carbon Dioxide BUN Creatinine Glucose POC Glucose 132 H 161 H Hemoglobin A1c Lactic Acid Calcium Phosphorus Magnesium Ferritin Total Bilirubin AST ALT Lactate Dehydrogenase C-Reactive Protein Albumin Triglycerides Arterial Blood Glucose 165 H Arterial Blood Ionized Calcium 4.5 L Urine Creatinine Coronavirus (PCR) Crossmatch 01/26/21 01/26/21 01/26/21 05:47 05:47 05:47 WBC RBC Hgb Hct 35.3 L MCV 96 H MCH 33 H MCHC RDW Plt Count Lymph % (Auto) Lymph # (Auto) Seg Neutrophils % Seg Neuts % (Manual) 96.0 H Lymphocytes % (Manual) 2.0 L Monocytes % (Manual) Nucleated RBC % Seg Neutrophils # Seg Neutrophils # Man Lymphocytes # (Manual) 0.1 L Monocytes # (Manual) Eosinophils # (Manual) INR D-Dimer > 74285 H ABG pH POC ABG pCO2 POC ABG pO2 ABG pO2 ABG HCO3 ABG O2 Saturation ABG Base Excess ABG Hemoglobin ABG Oxyhemoglobin ABG Sodium ABG Potassium ABG Chloride ABG Glucose Oxyhemoglobin Carboxyhemoglobin Sodium Potassium Chloride Carbon Dioxide BUN 57 H Creatinine 2.2 H Glucose 185 H POC Glucose Hemoglobin A1c Lactic Acid Calcium 8.1 L Phosphorus Magnesium Ferritin Total Bilirubin AST ALT Lactate Dehydrogenase C-Reactive Protein Albumin Triglycerides Arterial Blood Glucose Arterial Blood Ionized Calcium Urine Creatinine Coronavirus (PCR) Crossmatch 01/26/21 01/26/21 01/26/21 05:47 05:47 05:47 WBC RBC Hgb Hct MCV MCH MCHC RDW Plt Count Lymph % (Auto) Lymph # (Auto) Seg Neutrophils % Seg Neuts % (Manual) Lymphocytes % (Manual) Monocytes % (Manual) Nucleated RBC % Seg Neutrophils # Seg Neutrophils # Man Lymphocytes # (Manual) Monocytes # (Manual) Eosinophils # (Manual) INR D-Dimer ABG pH POC ABG pCO2 POC ABG pO2 ABG pO2 ABG HCO3 ABG O2 Saturation ABG Base Excess ABG Hemoglobin ABG Oxyhemoglobin ABG Sodium ABG Potassium ABG Chloride ABG Glucose Oxyhemoglobin Carboxyhemoglobin Sodium Potassium Chloride 107.1 H Carbon Dioxide BUN 56 H Creatinine 2.2 H Glucose 188 H POC Glucose Hemoglobin A1c Lactic Acid Calcium 8.0 L Phosphorus Magnesium Ferritin 1178.0 H Total Bilirubin 1.50 H AST ALT Lactate Dehydrogenase 588 H C-Reactive Protein 40.10 H Albumin 2.2 L Triglycerides Arterial Blood Glucose Arterial Blood Ionized Calcium Urine Creatinine Coronavirus (PCR) Crossmatch 01/26/21 01/26/21 01/26/21 11:34 18:17 23:20 WBC RBC Hgb Hct MCV MCH MCHC RDW Plt Count Lymph % (Auto) Lymph # (Auto) Seg Neutrophils % Seg Neuts % (Manual) Lymphocytes % (Manual) Monocytes % (Manual) Nucleated RBC % Seg Neutrophils # Seg Neutrophils # Man Lymphocytes # (Manual) Monocytes # (Manual) Eosinophils # (Manual) INR D-Dimer ABG pH POC ABG pCO2 POC ABG pO2 ABG pO2 ABG HCO3 ABG O2 Saturation ABG Base Excess ABG Hemoglobin ABG Oxyhemoglobin ABG Sodium ABG Potassium ABG Chloride ABG Glucose Oxyhemoglobin Carboxyhemoglobin Sodium Potassium Chloride Carbon Dioxide BUN Creatinine Glucose POC Glucose 129 H 205 H 155 H Hemoglobin A1c Lactic Acid Calcium Phosphorus Magnesium Ferritin Total Bilirubin AST ALT Lactate Dehydrogenase C-Reactive Protein Albumin Triglycerides Arterial Blood Glucose Arterial Blood Ionized Calcium Urine Creatinine Coronavirus (PCR) Crossmatch 01/27/21 01/27/21 01/27/21 02:45 05:29 05:29 WBC RBC 3.58 L Hgb 11.7 L Hct 34.9 L MCV 97 H MCH 33 H MCHC RDW Plt Count Lymph % (Auto) Lymph # (Auto) Seg Neutrophils % Seg Neuts % (Manual) 88.0 H Lymphocytes % (Manual) 7.0 L Monocytes % (Manual) Nucleated RBC % Seg Neutrophils # Seg Neutrophils # Man Lymphocytes # (Manual) 0.5 L Monocytes # (Manual) Eosinophils # (Manual) INR D-Dimer ABG pH 7.319 L POC ABG pCO2 50.7 H POC ABG pO2 63.0 L ABG pO2 ABG HCO3 ABG O2 Saturation ABG Base Excess ABG Hemoglobin ABG Oxyhemoglobin ABG Sodium 145.2 H ABG Potassium 5.1 H ABG Chloride 114.0 H ABG Glucose 178 H Oxyhemoglobin Carboxyhemoglobin Sodium Potassium Chloride Carbon Dioxide BUN Creatinine Glucose POC Glucose Hemoglobin A1c Lactic Acid Calcium Phosphorus Magnesium 4.00 H Ferritin Total Bilirubin AST ALT Lactate Dehydrogenase C-Reactive Protein Albumin Triglycerides Arterial Blood Glucose 178 H Arterial Blood Ionized Calcium Urine Creatinine Coronavirus (PCR) Crossmatch 01/27/21 01/27/21 01/27/21 05:29 05:29 05:31 WBC RBC Hgb Hct MCV MCH MCHC RDW Plt Count Lymph % (Auto) Lymph # (Auto) Seg Neutrophils % Seg Neuts % (Manual) Lymphocytes % (Manual) Monocytes % (Manual) Nucleated RBC % Seg Neutrophils # Seg Neutrophils # Man Lymphocytes # (Manual) Monocytes # (Manual) Eosinophils # (Manual) INR D-Dimer ABG pH POC ABG pCO2 POC ABG pO2 ABG pO2 ABG HCO3 ABG O2 Saturation ABG Base Excess ABG Hemoglobin ABG Oxyhemoglobin ABG Sodium ABG Potassium ABG Chloride ABG Glucose Oxyhemoglobin Carboxyhemoglobin Sodium Potassium 5.2 H Chloride 109.6 H Carbon Dioxide BUN 67 H Creatinine 2.8 H Glucose 195 H POC Glucose 176 H Hemoglobin A1c Lactic Acid Calcium 7.9 L Phosphorus Magnesium Ferritin Total Bilirubin AST ALT Lactate Dehydrogenase C-Reactive Protein Albumin Triglycerides 160 H Arterial Blood Glucose Arterial Blood Ionized Calcium Urine Creatinine Coronavirus (PCR) Crossmatch 01/27/21 01/27/21 01/27/21 11:27 18:08 23:30 WBC RBC Hgb Hct MCV MCH MCHC RDW Plt Count Lymph % (Auto) Lymph # (Auto) Seg Neutrophils % Seg Neuts % (Manual) Lymphocytes % (Manual) Monocytes % (Manual) Nucleated RBC % Seg Neutrophils # Seg Neutrophils # Man Lymphocytes # (Manual) Monocytes # (Manual) Eosinophils # (Manual) INR D-Dimer ABG pH POC ABG pCO2 POC ABG pO2 ABG pO2 ABG HCO3 ABG O2 Saturation ABG Base Excess ABG Hemoglobin ABG Oxyhemoglobin ABG Sodium ABG Potassium ABG Chloride ABG Glucose Oxyhemoglobin Carboxyhemoglobin Sodium Potassium Chloride Carbon Dioxide BUN Creatinine Glucose POC Glucose 189 H 212 H 175 H Hemoglobin A1c Lactic Acid Calcium Phosphorus Magnesium Ferritin Total Bilirubin AST ALT Lactate Dehydrogenase C-Reactive Protein Albumin Triglycerides Arterial Blood Glucose Arterial Blood Ionized Calcium Urine Creatinine Coronavirus (PCR) Crossmatch 01/28/21 01/28/21 01/28/21 03:58 04:00 04:00 WBC RBC Hgb Hct MCV MCH MCHC RDW Plt Count Lymph % (Auto) Lymph # (Auto) Seg Neutrophils % Seg Neuts % (Manual) Lymphocytes % (Manual) Monocytes % (Manual) Nucleated RBC % Seg Neutrophils # Seg Neutrophils # Man Lymphocytes # (Manual) Monocytes # (Manual) Eosinophils # (Manual) INR D-Dimer > 55579 H ABG pH POC ABG pCO2 POC ABG pO2 52.9 L ABG pO2 ABG HCO3 ABG O2 Saturation ABG Base Excess ABG Hemoglobin ABG Oxyhemoglobin 84.1 L ABG Sodium 148.9 H ABG Potassium ABG Chloride 117.0 H ABG Glucose 194 H Oxyhemoglobin Carboxyhemoglobin Sodium Potassium Chloride Carbon Dioxide BUN Creatinine Glucose POC Glucose Hemoglobin A1c Lactic Acid Calcium Phosphorus Magnesium Ferritin Total Bilirubin AST ALT Lactate Dehydrogenase 679 H C-Reactive Protein 17.10 H Albumin Triglycerides Arterial Blood Glucose 194 H Arterial Blood Ionized Calcium Urine Creatinine Coronavirus (PCR) Crossmatch 01/28/21 01/28/21 01/28/21 04:00 05:00 06:00 WBC RBC 3.59 L Hgb 11.6 L Hct 34.8 L MCV 97 H MCH MCHC RDW Plt Count Lymph % (Auto) Lymph # (Auto) Seg Neutrophils % Seg Neuts % (Manual) 96.0 H Lymphocytes % (Manual) 3.0 L Monocytes % (Manual) Nucleated RBC % Seg Neutrophils # Seg Neutrophils # Man Lymphocytes # (Manual) 0.2 L Monocytes # (Manual) Eosinophils # (Manual) INR D-Dimer ABG pH POC ABG pCO2 POC ABG pO2 ABG pO2 ABG HCO3 ABG O2 Saturation ABG Base Excess ABG Hemoglobin ABG Oxyhemoglobin ABG Sodium ABG Potassium ABG Chloride ABG Glucose Oxyhemoglobin Carboxyhemoglobin Sodium Potassium Chloride Carbon Dioxide BUN Creatinine Glucose POC Glucose 159 H Hemoglobin A1c Lactic Acid Calcium Phosphorus Magnesium Ferritin 798.0 H Total Bilirubin AST ALT Lactate Dehydrogenase C-Reactive Protein Albumin Triglycerides Arterial Blood Glucose Arterial Blood Ionized Calcium Urine Creatinine Coronavirus (PCR) Crossmatch 01/28/21 01/28/21 01/28/21 06:00 06:00 08:12 WBC RBC Hgb Hct MCV MCH MCHC RDW Plt Count Lymph % (Auto) Lymph # (Auto) Seg Neutrophils % Seg Neuts % (Manual) Lymphocytes % (Manual) Monocytes % (Manual) Nucleated RBC % Seg Neutrophils # Seg Neutrophils # Man Lymphocytes # (Manual) Monocytes # (Manual) Eosinophils # (Manual) INR D-Dimer ABG pH POC ABG pCO2 POC ABG pO2 ABG pO2 ABG HCO3 ABG O2 Saturation ABG Base Excess ABG Hemoglobin ABG Oxyhemoglobin ABG Sodium ABG Potassium ABG Chloride ABG Glucose Oxyhemoglobin Carboxyhemoglobin Sodium Potassium Chloride 111.9 H Carbon Dioxide BUN 59 H Creatinine 2.2 H Glucose 189 H POC Glucose 181 H Hemoglobin A1c Lactic Acid Calcium 8.1 L Phosphorus Magnesium 3.20 H Ferritin Total Bilirubin AST ALT Lactate Dehydrogenase C-Reactive Protein Albumin Triglycerides Arterial Blood Glucose Arterial Blood Ionized Calcium Urine Creatinine Coronavirus (PCR) Crossmatch 01/28/21 01/28/21 01/28/21 12:03 16:43 23:51 WBC RBC Hgb Hct MCV MCH MCHC RDW Plt Count Lymph % (Auto) Lymph # (Auto) Seg Neutrophils % Seg Neuts % (Manual) Lymphocytes % (Manual) Monocytes % (Manual) Nucleated RBC % Seg Neutrophils # Seg Neutrophils # Man Lymphocytes # (Manual) Monocytes # (Manual) Eosinophils # (Manual) INR D-Dimer ABG pH POC ABG pCO2 POC ABG pO2 ABG pO2 ABG HCO3 ABG O2 Saturation ABG Base Excess ABG Hemoglobin ABG Oxyhemoglobin ABG Sodium ABG Potassium ABG Chloride ABG Glucose Oxyhemoglobin Carboxyhemoglobin Sodium Potassium Chloride Carbon Dioxide BUN Creatinine Glucose POC Glucose 164 H 198 H 196 H Hemoglobin A1c Lactic Acid Calcium Phosphorus Magnesium Ferritin Total Bilirubin AST ALT Lactate Dehydrogenase C-Reactive Protein Albumin Triglycerides Arterial Blood Glucose Arterial Blood Ionized Calcium Urine Creatinine Coronavirus (PCR) Crossmatch 01/29/21 01/29/21 01/29/21 05:00 05:23 06:00 WBC RBC Hgb Hct MCV MCH MCHC RDW Plt Count Lymph % (Auto) Lymph # (Auto) Seg Neutrophils % Seg Neuts % (Manual) Lymphocytes % (Manual) Monocytes % (Manual) Nucleated RBC % Seg Neutrophils # Seg Neutrophils # Man Lymphocytes # (Manual) Monocytes # (Manual) Eosinophils # (Manual) INR D-Dimer ABG pH 7.119 L POC ABG pCO2 87.1 H POC ABG pO2 ABG pO2 ABG HCO3 ABG O2 Saturation ABG Base Excess ABG Hemoglobin ABG Oxyhemoglobin ABG Sodium 152.5 H ABG Potassium 5.7 H ABG Chloride 120.0 H ABG Glucose 217 H Oxyhemoglobin Carboxyhemoglobin Sodium 151 H Potassium 5.9 H D Chloride 117.8 H Carbon Dioxide BUN 54 H Creatinine 2.2 H Glucose 208 H POC Glucose 180 H Hemoglobin A1c Lactic Acid Calcium 7.9 L Phosphorus Magnesium Ferritin Total Bilirubin AST ALT Lactate Dehydrogenase C-Reactive Protein Albumin Triglycerides Arterial Blood Glucose 217 H Arterial Blood Ionized Calcium Urine Creatinine Coronavirus (PCR) Crossmatch 01/29/21 01/29/21 01/29/21 12:29 17:28 18:05 WBC RBC Hgb Hct MCV MCH MCHC RDW Plt Count Lymph % (Auto) Lymph # (Auto) Seg Neutrophils % Seg Neuts % (Manual) Lymphocytes % (Manual) Monocytes % (Manual) Nucleated RBC % Seg Neutrophils # Seg Neutrophils # Man Lymphocytes # (Manual) Monocytes # (Manual) Eosinophils # (Manual) INR D-Dimer ABG pH POC ABG pCO2 POC ABG pO2 ABG pO2 ABG HCO3 ABG O2 Saturation ABG Base Excess ABG Hemoglobin ABG Oxyhemoglobin ABG Sodium ABG Potassium ABG Chloride ABG Glucose Oxyhemoglobin Carboxyhemoglobin Sodium 151 H Potassium 5.5 H Chloride 118.2 H Carbon Dioxide BUN 52 H Creatinine 2.2 H Glucose 224 H POC Glucose 181 H 203 H Hemoglobin A1c Lactic Acid Calcium 8.0 L Phosphorus Magnesium Ferritin Total Bilirubin AST ALT Lactate Dehydrogenase C-Reactive Protein Albumin Triglycerides Arterial Blood Glucose Arterial Blood Ionized Calcium Urine Creatinine Coronavirus (PCR) Crossmatch 01/29/21 01/29/21 01/29/21 18:13 23:34 Unknown WBC RBC Hgb Hct MCV 101 H MCH MCHC RDW 15.7 H Plt Count Lymph % (Auto) Lymph # (Auto) Seg Neutrophils % Seg Neuts % (Manual) 95.0 H Lymphocytes % (Manual) 3.0 L Monocytes % (Manual) Nucleated RBC % Seg Neutrophils # Seg Neutrophils # Man 8.0 H Lymphocytes # (Manual) 0.3 L Monocytes # (Manual) Eosinophils # (Manual) INR D-Dimer ABG pH 7.223 L POC ABG pCO2 64.8 H POC ABG pO2 63.6 L ABG pO2 ABG HCO3 ABG O2 Saturation ABG Base Excess ABG Hemoglobin ABG Oxyhemoglobin 89.4 L ABG Sodium 152.9 H ABG Potassium 5.3 H ABG Chloride 121.0 H ABG Glucose 227 H Oxyhemoglobin Carboxyhemoglobin Sodium Potassium Chloride Carbon Dioxide BUN Creatinine Glucose POC Glucose 198 H Hemoglobin A1c Lactic Acid Calcium Phosphorus Magnesium Ferritin Total Bilirubin AST ALT Lactate Dehydrogenase C-Reactive Protein Albumin Triglycerides Arterial Blood Glucose 227 H Arterial Blood Ionized Calcium Urine Creatinine Coronavirus (PCR) Crossmatch 01/30/21 01/30/21 01/30/21 04:00 04:00 04:00 WBC RBC Hgb Hct MCV MCH MCHC RDW Plt Count Lymph % (Auto) Lymph # (Auto) Seg Neutrophils % Seg Neuts % (Manual) Lymphocytes % (Manual) Monocytes % (Manual) Nucleated RBC % Seg Neutrophils # Seg Neutrophils # Man Lymphocytes # (Manual) Monocytes # (Manual) Eosinophils # (Manual) INR D-Dimer > 08342 H ABG pH POC ABG pCO2 POC ABG pO2 ABG pO2 ABG HCO3 ABG O2 Saturation ABG Base Excess ABG Hemoglobin ABG Oxyhemoglobin ABG Sodium ABG Potassium ABG Chloride ABG Glucose Oxyhemoglobin Carboxyhemoglobin Sodium Potassium Chloride Carbon Dioxide BUN Creatinine Glucose 234 H POC Glucose Hemoglobin A1c Lactic Acid Calcium Phosphorus Magnesium Ferritin 763.9 H Total Bilirubin AST ALT Lactate Dehydrogenase 424 H C-Reactive Protein 23.90 H Albumin Triglycerides Arterial Blood Glucose Arterial Blood Ionized Calcium Urine Creatinine Coronavirus (PCR) Crossmatch 01/30/21 01/30/21 01/30/21 04:24 05:00 05:16 WBC RBC 3.57 L Hgb 11.3 L Hct 35.4 L MCV 99 H MCH MCHC RDW 15.6 H Plt Count Lymph % (Auto) Lymph # (Auto) Seg Neutrophils % Seg Neuts % (Manual) 97.0 H Lymphocytes % (Manual) 1.0 L Monocytes % (Manual) Nucleated RBC % Seg Neutrophils # Seg Neutrophils # Man 8.6 H Lymphocytes # (Manual) 0.1 L Monocytes # (Manual) Eosinophils # (Manual) INR D-Dimer ABG pH 7.235 L POC ABG pCO2 69.7 H POC ABG pO2 61.0 L ABG pO2 ABG HCO3 ABG O2 Saturation ABG Base Excess ABG Hemoglobin ABG Oxyhemoglobin 89 L ABG Sodium 154.2 H ABG Potassium 5.4 H ABG Chloride 121.0 H ABG Glucose 247 H Oxyhemoglobin Carboxyhemoglobin Sodium Potassium Chloride Carbon Dioxide BUN Creatinine Glucose POC Glucose 238 H Hemoglobin A1c Lactic Acid Calcium Phosphorus Magnesium Ferritin Total Bilirubin AST ALT Lactate Dehydrogenase C-Reactive Protein Albumin Triglycerides Arterial Blood Glucose 247 H Arterial Blood Ionized Calcium Urine Creatinine Coronavirus (PCR) Crossmatch 01/30/21 01/30/21 01/30/21 06:00 11:28 12:00 WBC RBC Hgb Hct MCV MCH MCHC RDW Plt Count Lymph % (Auto) Lymph # (Auto) Seg Neutrophils % Seg Neuts % (Manual) Lymphocytes % (Manual) Monocytes % (Manual) Nucleated RBC % Seg Neutrophils # Seg Neutrophils # Man Lymphocytes # (Manual) Monocytes # (Manual) Eosinophils # (Manual) INR D-Dimer ABG pH POC ABG pCO2 POC ABG pO2 ABG pO2 ABG HCO3 ABG O2 Saturation ABG Base Excess ABG Hemoglobin ABG Oxyhemoglobin ABG Sodium ABG Potassium ABG Chloride ABG Glucose Oxyhemoglobin Carboxyhemoglobin Sodium 152 H Potassium 5.3 H Chloride 120.5 H Carbon Dioxide BUN 50 H Creatinine 2.3 H Glucose 239 H POC Glucose 153 H Hemoglobin A1c Lactic Acid Calcium 8.2 L Phosphorus Magnesium 2.60 H Ferritin Total Bilirubin AST ALT Lactate Dehydrogenase C-Reactive Protein Albumin Triglycerides 293 H Arterial Blood Glucose Arterial Blood Ionized Calcium Urine Creatinine 53.0 H Coronavirus (PCR) Crossmatch 01/30/21 01/30/21 01/31/21 18:49 23:06 04:00 WBC RBC Hgb Hct MCV MCH MCHC RDW Plt Count Lymph % (Auto) Lymph # (Auto) Seg Neutrophils % Seg Neuts % (Manual) Lymphocytes % (Manual) Monocytes % (Manual) Nucleated RBC % Seg Neutrophils # Seg Neutrophils # Man Lymphocytes # (Manual) Monocytes # (Manual) Eosinophils # (Manual) INR D-Dimer ABG pH POC ABG pCO2 POC ABG pO2 ABG pO2 ABG HCO3 ABG O2 Saturation ABG Base Excess ABG Hemoglobin ABG Oxyhemoglobin ABG Sodium ABG Potassium ABG Chloride ABG Glucose Oxyhemoglobin Carboxyhemoglobin Sodium 156 H Potassium 5.9 H Chloride 122.6 H Carbon Dioxide BUN 61 H Creatinine 3.2 H Glucose 205 H POC Glucose 220 H 192 H Hemoglobin A1c Lactic Acid Calcium 8.0 L Phosphorus Magnesium Ferritin Total Bilirubin AST ALT Lactate Dehydrogenase C-Reactive Protein Albumin Triglycerides Arterial Blood Glucose Arterial Blood Ionized Calcium Urine Creatinine Coronavirus (PCR) Crossmatch 01/31/21 01/31/21 01/31/21 04:40 05:17 11:33 WBC RBC Hgb Hct MCV MCH MCHC RDW Plt Count Lymph % (Auto) Lymph # (Auto) Seg Neutrophils % Seg Neuts % (Manual) Lymphocytes % (Manual) Monocytes % (Manual) Nucleated RBC % Seg Neutrophils # Seg Neutrophils # Man Lymphocytes # (Manual) Monocytes # (Manual) Eosinophils # (Manual) INR D-Dimer ABG pH 7.161 L* POC ABG pCO2 POC ABG pO2 ABG pO2 142.2 H ABG HCO3 28.3 H ABG O2 Saturation ABG Base Excess -3.2 L ABG Hemoglobin ABG Oxyhemoglobin ABG Sodium ABG Potassium ABG Chloride ABG Glucose Oxyhemoglobin Carboxyhemoglobin Sodium Potassium Chloride Carbon Dioxide BUN Creatinine Glucose POC Glucose 200 H 167 H Hemoglobin A1c Lactic Acid Calcium Phosphorus Magnesium Ferritin Total Bilirubin AST ALT Lactate Dehydrogenase C-Reactive Protein Albumin Triglycerides Arterial Blood Glucose Arterial Blood Ionized Calcium Urine Creatinine Coronavirus (PCR) Crossmatch 01/31/21 01/31/21 01/31/21 14:00 17:10 23:24 WBC RBC Hgb Hct MCV MCH MCHC RDW Plt Count Lymph % (Auto) Lymph # (Auto) Seg Neutrophils % Seg Neuts % (Manual) Lymphocytes % (Manual) Monocytes % (Manual) Nucleated RBC % Seg Neutrophils # Seg Neutrophils # Man Lymphocytes # (Manual) Monocytes # (Manual) Eosinophils # (Manual) INR D-Dimer ABG pH 7.205 L POC ABG pCO2 POC ABG pO2 ABG pO2 90.9 H ABG HCO3 26.5 H ABG O2 Saturation ABG Base Excess -2.7 L ABG Hemoglobin 12.3 L ABG Oxyhemoglobin ABG Sodium ABG Potassium ABG Chloride ABG Glucose Oxyhemoglobin 93.9 L Carboxyhemoglobin Sodium Potassium Chloride Carbon Dioxide BUN Creatinine Glucose POC Glucose 190 H 203 H Hemoglobin A1c Lactic Acid Calcium Phosphorus Magnesium Ferritin Total Bilirubin AST ALT Lactate Dehydrogenase C-Reactive Protein Albumin Triglycerides Arterial Blood Glucose Arterial Blood Ionized Calcium Urine Creatinine Coronavirus (PCR) Crossmatch 02/01/21 02/01/21 02/01/21 05:15 06:22 10:20 WBC RBC Hgb Hct MCV MCH MCHC RDW Plt Count Lymph % (Auto) Lymph # (Auto) Seg Neutrophils % Seg Neuts % (Manual) Lymphocytes % (Manual) Monocytes % (Manual) Nucleated RBC % Seg Neutrophils # Seg Neutrophils # Man Lymphocytes # (Manual) Monocytes # (Manual) Eosinophils # (Manual) INR D-Dimer ABG pH 6.920 L* 7.116 L* POC ABG pCO2 POC ABG pO2 ABG pO2 102.9 H 113.1 H ABG HCO3 28.2 H ABG O2 Saturation 92.9 L ABG Base Excess -6.9 L -5.8 L ABG Hemoglobin 11.6 L 9.5 L ABG Oxyhemoglobin ABG Sodium ABG Potassium ABG Chloride ABG Glucose Oxyhemoglobin 90.5 L 94.6 L Carboxyhemoglobin Sodium Potassium Chloride Carbon Dioxide BUN Creatinine Glucose POC Glucose 221 H Hemoglobin A1c Lactic Acid Calcium Phosphorus Magnesium Ferritin Total Bilirubin AST ALT Lactate Dehydrogenase C-Reactive Protein Albumin Triglycerides Arterial Blood Glucose Arterial Blood Ionized Calcium Urine Creatinine Coronavirus (PCR) Crossmatch 02/01/21 02/01/21 02/01/21 11:12 12:35 16:00 WBC RBC Hgb Hct MCV MCH MCHC RDW Plt Count Lymph % (Auto) Lymph # (Auto) Seg Neutrophils % Seg Neuts % (Manual) Lymphocytes % (Manual) Monocytes % (Manual) Nucleated RBC % Seg Neutrophils # Seg Neutrophils # Man Lymphocytes # (Manual) Monocytes # (Manual) Eosinophils # (Manual) INR D-Dimer ABG pH 7.155 L* POC ABG pCO2 POC ABG pO2 ABG pO2 94.6 H ABG HCO3 ABG O2 Saturation ABG Base Excess -6.5 L ABG Hemoglobin 13.1 L ABG Oxyhemoglobin ABG Sodium ABG Potassium ABG Chloride ABG Glucose Oxyhemoglobin 93.7 L Carboxyhemoglobin Sodium 155 H Potassium 5.1 H Chloride 120.5 H Carbon Dioxide BUN 90 H Creatinine 6.1 H D Glucose 238 H POC Glucose 207 H Hemoglobin A1c Lactic Acid Calcium 7.4 L Phosphorus Magnesium Ferritin Total Bilirubin AST ALT Lactate Dehydrogenase C-Reactive Protein Albumin Triglycerides Arterial Blood Glucose Arterial Blood Ionized Calcium Urine Creatinine Coronavirus (PCR) Crossmatch 02/01/21 02/01/21 02/02/21 17:10 23:47 04:04 WBC RBC 3.02 L Hgb 9.8 L Hct 30.7 L MCV 102 H MCH MCHC RDW 15.6 H Plt Count Lymph % (Auto) 4.2 L Lymph # (Auto) 0.3 L Seg Neutrophils % Seg Neuts % (Manual) Lymphocytes % (Manual) Monocytes % (Manual) Nucleated RBC % Seg Neutrophils # Seg Neutrophils # Man Lymphocytes # (Manual) Monocytes # (Manual) Eosinophils # (Manual) INR D-Dimer ABG pH POC ABG pCO2 POC ABG pO2 ABG pO2 ABG HCO3 ABG O2 Saturation ABG Base Excess ABG Hemoglobin ABG Oxyhemoglobin ABG Sodium ABG Potassium ABG Chloride ABG Glucose Oxyhemoglobin Carboxyhemoglobin Sodium Potassium Chloride Carbon Dioxide BUN Creatinine Glucose POC Glucose 238 H 235 H Hemoglobin A1c Lactic Acid Calcium Phosphorus Magnesium Ferritin Total Bilirubin AST ALT Lactate Dehydrogenase C-Reactive Protein Albumin Triglycerides Arterial Blood Glucose Arterial Blood Ionized Calcium Urine Creatinine Coronavirus (PCR) Crossmatch 02/02/21 02/02/21 02/02/21 05:18 05:35 11:28 WBC RBC Hgb Hct MCV MCH MCHC RDW Plt Count Lymph % (Auto) Lymph # (Auto) Seg Neutrophils % Seg Neuts % (Manual) Lymphocytes % (Manual) Monocytes % (Manual) Nucleated RBC % Seg Neutrophils # Seg Neutrophils # Man Lymphocytes # (Manual) Monocytes # (Manual) Eosinophils # (Manual) INR D-Dimer ABG pH 7.195 L* POC ABG pCO2 POC ABG pO2 ABG pO2 72.5 L ABG HCO3 ABG O2 Saturation 91.2 L ABG Base Excess -5.3 L ABG Hemoglobin 6.0 L ABG Oxyhemoglobin ABG Sodium ABG Potassium ABG Chloride ABG Glucose Oxyhemoglobin 89.1 L Carboxyhemoglobin Sodium Potassium Chloride 110.4 H Carbon Dioxide BUN 92 H Creatinine Glucose POC Glucose 239 H Hemoglobin A1c Lactic Acid Calcium Phosphorus Magnesium Ferritin Total Bilirubin AST ALT Lactate Dehydrogenase C-Reactive Protein Albumin Triglycerides Arterial Blood Glucose Arterial Blood Ionized Calcium Urine Creatinine Coronavirus (PCR) Crossmatch 02/02/21 02/02/21 02/02/21 11:53 16:00 18:04 WBC RBC Hgb Hct MCV MCH MCHC RDW Plt Count Lymph % (Auto) Lymph # (Auto) Seg Neutrophils % Seg Neuts % (Manual) Lymphocytes % (Manual) Monocytes % (Manual) Nucleated RBC % Seg Neutrophils # Seg Neutrophils # Man Lymphocytes # (Manual) Monocytes # (Manual) Eosinophils # (Manual) INR D-Dimer ABG pH POC ABG pCO2 POC ABG pO2 ABG pO2 ABG HCO3 ABG O2 Saturation ABG Base Excess ABG Hemoglobin ABG Oxyhemoglobin ABG Sodium ABG Potassium ABG Chloride ABG Glucose Oxyhemoglobin Carboxyhemoglobin Sodium Potassium Chloride Carbon Dioxide BUN Creatinine Glucose POC Glucose 248 H 199 H Hemoglobin A1c 6.3 H Lactic Acid Calcium Phosphorus Magnesium Ferritin Total Bilirubin AST ALT Lactate Dehydrogenase C-Reactive Protein Albumin Triglycerides Arterial Blood Glucose Arterial Blood Ionized Calcium Urine Creatinine Coronavirus (PCR) Crossmatch 02/02/21 02/03/21 02/03/21 23:31 03:12 04:10 WBC RBC 3.06 L Hgb 9.7 L Hct 30.4 L MCV 99 H MCH MCHC RDW 15.3 H Plt Count Lymph % (Auto) 6.1 L Lymph # (Auto) 0.5 L Seg Neutrophils % 86.1 H Seg Neuts % (Manual) Lymphocytes % (Manual) Monocytes % (Manual) Nucleated RBC % Seg Neutrophils # Seg Neutrophils # Man Lymphocytes # (Manual) Monocytes # (Manual) Eosinophils # (Manual) INR D-Dimer ABG pH 7.199 L POC ABG pCO2 48.3 H POC ABG pO2 68.3 L ABG pO2 ABG HCO3 ABG O2 Saturation ABG Base Excess ABG Hemoglobin 10.2 L ABG Oxyhemoglobin 89.2 L ABG Sodium 155.0 H ABG Potassium 4.6 H ABG Chloride 121.0 H ABG Glucose 166 H Oxyhemoglobin Carboxyhemoglobin 0.3 L Sodium Potassium Chloride Carbon Dioxide BUN Creatinine Glucose POC Glucose 200 H Hemoglobin A1c Lactic Acid Calcium Phosphorus Magnesium Ferritin Total Bilirubin AST ALT Lactate Dehydrogenase C-Reactive Protein Albumin Triglycerides Arterial Blood Glucose 166 H Arterial Blood Ionized Calcium 4.1 L Urine Creatinine Coronavirus (PCR) Crossmatch 02/03/21 02/03/21 02/03/21 04:10 05:34 11:51 WBC RBC Hgb Hct MCV MCH MCHC RDW Plt Count Lymph % (Auto) Lymph # (Auto) Seg Neutrophils % Seg Neuts % (Manual) Lymphocytes % (Manual) Monocytes % (Manual) Nucleated RBC % Seg Neutrophils # Seg Neutrophils # Man Lymphocytes # (Manual) Monocytes # (Manual) Eosinophils # (Manual) INR D-Dimer ABG pH POC ABG pCO2 POC ABG pO2 ABG pO2 ABG HCO3 ABG O2 Saturation ABG Base Excess ABG Hemoglobin ABG Oxyhemoglobin ABG Sodium ABG Potassium ABG Chloride ABG Glucose Oxyhemoglobin Carboxyhemoglobin Sodium 154 H D Potassium Chloride 116.7 H Carbon Dioxide 20 L BUN 130 H Creatinine 9.2 H D Glucose 160 H POC Glucose 130 H 154 H Hemoglobin A1c Lactic Acid Calcium 6.7 L Phosphorus 8.60 H Magnesium Ferritin Total Bilirubin AST ALT Lactate Dehydrogenase C-Reactive Protein Albumin Triglycerides Arterial Blood Glucose Arterial Blood Ionized Calcium Urine Creatinine Coronavirus (PCR) Crossmatch 02/03/21 02/03/21 02/04/21 16:49 23:22 03:48 WBC RBC Hgb Hct MCV MCH MCHC RDW Plt Count Lymph % (Auto) Lymph # (Auto) Seg Neutrophils % Seg Neuts % (Manual) Lymphocytes % (Manual) Monocytes % (Manual) Nucleated RBC % Seg Neutrophils # Seg Neutrophils # Man Lymphocytes # (Manual) Monocytes # (Manual) Eosinophils # (Manual) INR D-Dimer ABG pH 7.201 L POC ABG pCO2 54.5 H POC ABG pO2 74.0 L ABG pO2 ABG HCO3 ABG O2 Saturation ABG Base Excess ABG Hemoglobin 9.7 L ABG Oxyhemoglobin 91.1 L ABG Sodium 146.2 H ABG Potassium ABG Chloride 114.0 H ABG Glucose 155 H Oxyhemoglobin Carboxyhemoglobin Sodium Potassium Chloride Carbon Dioxide BUN Creatinine Glucose POC Glucose 164 H 152 H Hemoglobin A1c Lactic Acid Calcium Phosphorus Magnesium Ferritin Total Bilirubin AST ALT Lactate Dehydrogenase C-Reactive Protein Albumin Triglycerides Arterial Blood Glucose 155 H Arterial Blood Ionized Calcium 3.9 L Urine Creatinine Coronavirus (PCR) Crossmatch 02/04/21 02/04/21 02/04/21 04:45 04:45 04:45 WBC RBC 2.75 L Hgb 9.1 L Hct 26.9 L MCV 98 H MCH 33 H MCHC RDW Plt Count Lymph % (Auto) 6.8 L Lymph # (Auto) 0.5 L Seg Neutrophils % 87.2 H Seg Neuts % (Manual) Lymphocytes % (Manual) Monocytes % (Manual) Nucleated RBC % Seg Neutrophils # Seg Neutrophils # Man Lymphocytes # (Manual) Monocytes # (Manual) Eosinophils # (Manual) INR D-Dimer ABG pH POC ABG pCO2 POC ABG pO2 ABG pO2 ABG HCO3 ABG O2 Saturation ABG Base Excess ABG Hemoglobin ABG Oxyhemoglobin ABG Sodium ABG Potassium ABG Chloride ABG Glucose Oxyhemoglobin Carboxyhemoglobin Sodium 149 H Potassium Chloride 111.5 H Carbon Dioxide BUN 99 H Creatinine 8.5 H Glucose 139 H POC Glucose Hemoglobin A1c Lactic Acid Calcium 6.8 L Phosphorus 8.40 H Magnesium Ferritin Total Bilirubin AST ALT Lactate Dehydrogenase C-Reactive Protein Albumin Triglycerides Arterial Blood Glucose Arterial Blood Ionized Calcium Urine Creatinine Coronavirus (PCR) Crossmatch 02/04/21 02/04/21 02/04/21 06:05 11:44 18:00 WBC RBC Hgb Hct MCV MCH MCHC RDW Plt Count Lymph % (Auto) Lymph # (Auto) Seg Neutrophils % Seg Neuts % (Manual) Lymphocytes % (Manual) Monocytes % (Manual) Nucleated RBC % Seg Neutrophils # Seg Neutrophils # Man Lymphocytes # (Manual) Monocytes # (Manual) Eosinophils # (Manual) INR D-Dimer ABG pH POC ABG pCO2 POC ABG pO2 ABG pO2 ABG HCO3 ABG O2 Saturation ABG Base Excess ABG Hemoglobin ABG Oxyhemoglobin ABG Sodium ABG Potassium ABG Chloride ABG Glucose Oxyhemoglobin Carboxyhemoglobin Sodium Potassium Chloride Carbon Dioxide BUN Creatinine Glucose POC Glucose 138 H 129 H 163 H Hemoglobin A1c Lactic Acid Calcium Phosphorus Magnesium Ferritin Total Bilirubin AST ALT Lactate Dehydrogenase C-Reactive Protein Albumin Triglycerides Arterial Blood Glucose Arterial Blood Ionized Calcium Urine Creatinine Coronavirus (PCR) Crossmatch 02/04/21 02/05/21 02/05/21 23:48 01:50 01:50 WBC RBC 2.43 L Hgb 8.3 L Hct 23.6 L MCV 97 H MCH 34 H MCHC 35 H RDW Plt Count 137 L Lymph % (Auto) 8.4 L Lymph # (Auto) 0.6 L Seg Neutrophils % 86.1 H Seg Neuts % (Manual) Lymphocytes % (Manual) Monocytes % (Manual) Nucleated RBC % Seg Neutrophils # Seg Neutrophils # Man Lymphocytes # (Manual) Monocytes # (Manual) Eosinophils # (Manual) INR D-Dimer ABG pH POC ABG pCO2 POC ABG pO2 ABG pO2 ABG HCO3 ABG O2 Saturation ABG Base Excess ABG Hemoglobin ABG Oxyhemoglobin ABG Sodium ABG Potassium ABG Chloride ABG Glucose Oxyhemoglobin Carboxyhemoglobin Sodium Potassium Chloride Carbon Dioxide BUN Creatinine Glucose POC Glucose 157 H Hemoglobin A1c Lactic Acid Calcium Phosphorus 5.60 H D Magnesium Ferritin Total Bilirubin AST ALT Lactate Dehydrogenase C-Reactive Protein Albumin Triglycerides Arterial Blood Glucose Arterial Blood Ionized Calcium Urine Creatinine Coronavirus (PCR) Crossmatch 02/05/21 02/05/21 02/05/21 03:44 05:27 09:15 WBC RBC Hgb Hct MCV MCH MCHC RDW Plt Count Lymph % (Auto) Lymph # (Auto) Seg Neutrophils % Seg Neuts % (Manual) Lymphocytes % (Manual) Monocytes % (Manual) Nucleated RBC % Seg Neutrophils # Seg Neutrophils # Man Lymphocytes # (Manual) Monocytes # (Manual) Eosinophils # (Manual) INR D-Dimer ABG pH 7.202 L POC ABG pCO2 63.7 H POC ABG pO2 69.0 L ABG pO2 ABG HCO3 ABG O2 Saturation ABG Base Excess ABG Hemoglobin 9.4 L ABG Oxyhemoglobin ABG Sodium ABG Potassium ABG Chloride 108.0 H ABG Glucose 186 H Oxyhemoglobin Carboxyhemoglobin Sodium Potassium Chloride Carbon Dioxide BUN 78 H Creatinine 8.0 H Glucose 163 H POC Glucose 157 H Hemoglobin A1c Lactic Acid Calcium 6.3 L Phosphorus Magnesium Ferritin Total Bilirubin AST ALT Lactate Dehydrogenase C-Reactive Protein Albumin Triglycerides Arterial Blood Glucose 186 H Arterial Blood Ionized Calcium 3.9 L Urine Creatinine Coronavirus (PCR) Crossmatch 02/05/21 02/05/21 02/05/21 11:47 17:39 23:40 WBC RBC Hgb Hct MCV MCH MCHC RDW Plt Count Lymph % (Auto) Lymph # (Auto) Seg Neutrophils % Seg Neuts % (Manual) Lymphocytes % (Manual) Monocytes % (Manual) Nucleated RBC % Seg Neutrophils # Seg Neutrophils # Man Lymphocytes # (Manual) Monocytes # (Manual) Eosinophils # (Manual) INR D-Dimer ABG pH 7.273 L POC ABG pCO2 62.1 H POC ABG pO2 72.0 L ABG pO2 ABG HCO3 ABG O2 Saturation ABG Base Excess ABG Hemoglobin 9.1 L ABG Oxyhemoglobin 91.3 L ABG Sodium ABG Potassium 3.1 L ABG Chloride ABG Glucose 125 H Oxyhemoglobin Carboxyhemoglobin Sodium Potassium Chloride Carbon Dioxide BUN Creatinine Glucose POC Glucose 126 H 126 H Hemoglobin A1c Lactic Acid Calcium Phosphorus Magnesium Ferritin Total Bilirubin AST ALT Lactate Dehydrogenase C-Reactive Protein Albumin Triglycerides Arterial Blood Glucose 125 H Arterial Blood Ionized Calcium 4.0 L Urine Creatinine Coronavirus (PCR) Crossmatch 02/06/21 02/06/21 02/06/21 04:30 04:57 09:45 WBC RBC Hgb Hct MCV MCH MCHC RDW Plt Count Lymph % (Auto) Lymph # (Auto) Seg Neutrophils % Seg Neuts % (Manual) Lymphocytes % (Manual) Monocytes % (Manual) Nucleated RBC % Seg Neutrophils # Seg Neutrophils # Man Lymphocytes # (Manual) Monocytes # (Manual) Eosinophils # (Manual) INR D-Dimer ABG pH 7.159 L 7.138 L* POC ABG pCO2 76.3 H POC ABG pO2 66.9 L ABG pO2 ABG HCO3 ABG O2 Saturation 93.4 L ABG Base Excess -6.0 L ABG Hemoglobin 11.2 L 11.7 L ABG Oxyhemoglobin 88.2 L ABG Sodium ABG Potassium ABG Chloride ABG Glucose 134 H Oxyhemoglobin 91.2 L Carboxyhemoglobin Sodium Potassium Chloride Carbon Dioxide BUN Creatinine Glucose POC Glucose 124 H Hemoglobin A1c Lactic Acid Calcium Phosphorus Magnesium Ferritin Total Bilirubin AST ALT Lactate Dehydrogenase C-Reactive Protein Albumin Triglycerides Arterial Blood Glucose 134 H Arterial Blood Ionized Calcium 3.9 L Urine Creatinine Coronavirus (PCR) Crossmatch 02/06/21 02/06/21 02/06/21 11:11 17:00 17:00 WBC RBC Hgb Hct MCV MCH MCHC RDW Plt Count Lymph % (Auto) Lymph # (Auto) Seg Neutrophils % Seg Neuts % (Manual) Lymphocytes % (Manual) Monocytes % (Manual) Nucleated RBC % Seg Neutrophils # Seg Neutrophils # Man Lymphocytes # (Manual) Monocytes # (Manual) Eosinophils # (Manual) INR D-Dimer ABG pH 7.158 L* POC ABG pCO2 POC ABG pO2 ABG pO2 109.8 H ABG HCO3 28.7 H ABG O2 Saturation ABG Base Excess -2.5 L ABG Hemoglobin ABG Oxyhemoglobin ABG Sodium ABG Potassium ABG Chloride ABG Glucose Oxyhemoglobin 94.5 L Carboxyhemoglobin Sodium Potassium Chloride Carbon Dioxide BUN Creatinine Glucose POC Glucose 120 H Hemoglobin A1c Lactic Acid Calcium Phosphorus Magnesium Ferritin Total Bilirubin AST ALT Lactate Dehydrogenase C-Reactive Protein Albumin Triglycerides 503 H Arterial Blood Glucose Arterial Blood Ionized Calcium Urine Creatinine Coronavirus (PCR) Crossmatch 02/06/21 02/06/21 02/06/21 17:28 20:16 Unknown WBC 13.5 H RBC 2.98 L Hgb 9.3 L Hct 28.6 L MCV 96 H MCH MCHC RDW Plt Count Lymph % (Auto) Lymph # (Auto) Seg Neutrophils % Seg Neuts % (Manual) 87.0 H Lymphocytes % (Manual) 7.0 L Monocytes % (Manual) Nucleated RBC % Seg Neutrophils # Seg Neutrophils # Man 11.7 H Lymphocytes # (Manual) 0.9 L Monocytes # (Manual) Eosinophils # (Manual) 0.5 H INR D-Dimer ABG pH POC ABG pCO2 POC ABG pO2 ABG pO2 ABG HCO3 ABG O2 Saturation ABG Base Excess ABG Hemoglobin ABG Oxyhemoglobin ABG Sodium ABG Potassium ABG Chloride ABG Glucose Oxyhemoglobin Carboxyhemoglobin Sodium Potassium Chloride Carbon Dioxide BUN Creatinine Glucose POC Glucose 147 H 164 H Hemoglobin A1c Lactic Acid Calcium Phosphorus Magnesium Ferritin Total Bilirubin AST ALT Lactate Dehydrogenase C-Reactive Protein Albumin Triglycerides Arterial Blood Glucose Arterial Blood Ionized Calcium Urine Creatinine Coronavirus (PCR) Crossmatch 02/06/21 02/07/21 02/07/21 Unknown : 04:00 WBC 12.0 H RBC 2.61 L Hgb 8.2 L Hct 24.5 L MCV MCH MCHC RDW Plt Count Lymph % (Auto) 8.9 L Lymph # (Auto) 1.1 L Seg Neutrophils % 86.3 H Seg Neuts % (Manual) Lymphocytes % (Manual) Monocytes % (Manual) Nucleated RBC % Seg Neutrophils # 10.3 H Seg Neutrophils # Man Lymphocytes # (Manual) Monocytes # (Manual) Eosinophils # (Manual) INR D-Dimer ABG pH POC ABG pCO2 POC ABG pO2 ABG pO2 ABG HCO3 ABG O2 Saturation ABG Base Excess ABG Hemoglobin ABG Oxyhemoglobin ABG Sodium ABG Potassium ABG Chloride ABG Glucose Oxyhemoglobin Carboxyhemoglobin Sodium Potassium 3.5 L Chloride Carbon Dioxide BUN 58 H Creatinine 6.6 H Glucose 107 H POC Glucose 173 H Hemoglobin A1c Lactic Acid Calcium 6.7 L Phosphorus 8.00 H D Magnesium Ferritin Total Bilirubin AST ALT Lactate Dehydrogenase C-Reactive Protein Albumin Triglycerides Arterial Blood Glucose Arterial Blood Ionized Calcium Urine Creatinine Coronavirus (PCR) Crossmatch 02/07/21 02/07/21 02/07/21 04:00 04:45 11:49 WBC RBC Hgb Hct MCV MCH MCHC RDW Plt Count Lymph % (Auto) Lymph # (Auto) Seg Neutrophils % Seg Neuts % (Manual) Lymphocytes % (Manual) Monocytes % (Manual) Nucleated RBC % Seg Neutrophils # Seg Neutrophils # Man Lymphocytes # (Manual) Monocytes # (Manual) Eosinophils # (Manual) INR D-Dimer ABG pH 7.287 L POC ABG pCO2 64.8 H POC ABG pO2 74.0 L ABG pO2 ABG HCO3 ABG O2 Saturation ABG Base Excess ABG Hemoglobin 9.1 L ABG Oxyhemoglobin 92.0 L ABG Sodium ABG Potassium 2.8 L ABG Chloride ABG Glucose 226 H Oxyhemoglobin Carboxyhemoglobin Sodium Potassium Chloride Carbon Dioxide BUN Creatinine Glucose POC Glucose 170 H Hemoglobin A1c Lactic Acid Calcium Phosphorus 5.50 H D Magnesium Ferritin Total Bilirubin AST ALT Lactate Dehydrogenase C-Reactive Protein Albumin Triglycerides Arterial Blood Glucose 226 H Arterial Blood Ionized Calcium 3.7 L Urine Creatinine Coronavirus (PCR) Crossmatch 02/07/21 02/07/21 02/07/21 13:48 17:45 23:02 WBC RBC Hgb Hct MCV MCH MCHC RDW Plt Count Lymph % (Auto) Lymph # (Auto) Seg Neutrophils % Seg Neuts % (Manual) Lymphocytes % (Manual) Monocytes % (Manual) Nucleated RBC % Seg Neutrophils # Seg Neutrophils # Man Lymphocytes # (Manual) Monocytes # (Manual) Eosinophils # (Manual) INR D-Dimer ABG pH POC ABG pCO2 POC ABG pO2 ABG pO2 ABG HCO3 ABG O2 Saturation ABG Base Excess ABG Hemoglobin ABG Oxyhemoglobin ABG Sodium ABG Potassium ABG Chloride ABG Glucose Oxyhemoglobin Carboxyhemoglobin Sodium 136 L Potassium 2.6 L* D Chloride 95.1 L Carbon Dioxide 33 H D BUN 30 H Creatinine 3.6 H Glucose 184 H POC Glucose 172 H 172 H Hemoglobin A1c Lactic Acid Calcium 6.9 L Phosphorus Magnesium Ferritin Total Bilirubin AST ALT Lactate Dehydrogenase C-Reactive Protein Albumin Triglycerides Arterial Blood Glucose Arterial Blood Ionized Calcium Urine Creatinine Coronavirus (PCR) Crossmatch 02/08/21 02/08/21 02/08/21 05:22 06:00 06:00 WBC RBC 2.21 L Hgb 7.2 L Hct 21.0 L MCV 95 H MCH MCHC RDW Plt Count Lymph % (Auto) Lymph # (Auto) Seg Neutrophils % Seg Neuts % (Manual) 87.0 H Lymphocytes % (Manual) 4.0 L Monocytes % (Manual) Nucleated RBC % Seg Neutrophils # Seg Neutrophils # Man 8.5 H Lymphocytes # (Manual) 0.4 L Monocytes # (Manual) Eosinophils # (Manual) INR D-Dimer ABG pH POC ABG pCO2 POC ABG pO2 ABG pO2 ABG HCO3 ABG O2 Saturation ABG Base Excess ABG Hemoglobin ABG Oxyhemoglobin ABG Sodium ABG Potassium ABG Chloride ABG Glucose Oxyhemoglobin Carboxyhemoglobin Sodium 136 L Potassium 2.4 L* Chloride 93.1 L Carbon Dioxide 36 H BUN 43 H Creatinine 5.4 H Glucose 167 H POC Glucose 162 H Hemoglobin A1c Lactic Acid Calcium 6.3 L Phosphorus Magnesium Ferritin Total Bilirubin AST ALT Lactate Dehydrogenase C-Reactive Protein Albumin Triglycerides Arterial Blood Glucose Arterial Blood Ionized Calcium Urine Creatinine Coronavirus (PCR) Crossmatch 02/08/21 02/08/21 02/08/21 11:44 17:53 18:56 WBC RBC Hgb Hct MCV MCH MCHC RDW Plt Count Lymph % (Auto) Lymph # (Auto) Seg Neutrophils % Seg Neuts % (Manual) Lymphocytes % (Manual) Monocytes % (Manual) Nucleated RBC % Seg Neutrophils # Seg Neutrophils # Man Lymphocytes # (Manual) Monocytes # (Manual) Eosinophils # (Manual) INR D-Dimer ABG pH POC ABG pCO2 POC ABG pO2 ABG pO2 ABG HCO3 ABG O2 Saturation ABG Base Excess ABG Hemoglobin ABG Oxyhemoglobin ABG Sodium ABG Potassium ABG Chloride ABG Glucose Oxyhemoglobin Carboxyhemoglobin Sodium Potassium 2.9 L* D Chloride Carbon Dioxide BUN Creatinine Glucose POC Glucose 164 H 154 H Hemoglobin A1c Lactic Acid Calcium Phosphorus Magnesium Ferritin Total Bilirubin AST ALT Lactate Dehydrogenase C-Reactive Protein Albumin Triglycerides Arterial Blood Glucose Arterial Blood Ionized Calcium Urine Creatinine Coronavirus (PCR) Crossmatch 02/08/21 02/08/21 02/09/21 23:24 23:58 03:21 WBC RBC Hgb Hct MCV MCH MCHC RDW Plt Count Lymph % (Auto) Lymph # (Auto) Seg Neutrophils % Seg Neuts % (Manual) Lymphocytes % (Manual) Monocytes % (Manual) Nucleated RBC % Seg Neutrophils # Seg Neutrophils # Man Lymphocytes # (Manual) Monocytes # (Manual) Eosinophils # (Manual) INR D-Dimer ABG pH 7.319 L POC ABG pCO2 63.3 H 68.3 H POC ABG pO2 71.2 L 76.5 L ABG pO2 ABG HCO3 ABG O2 Saturation ABG Base Excess ABG Hemoglobin 8.2 L 7.0 L ABG Oxyhemoglobin 91.8 L 92.2 L ABG Sodium 134.6 L 133.0 L ABG Potassium 2.3 L 3.1 L ABG Chloride 96.0 L 95.0 L ABG Glucose 184 H 154 H Oxyhemoglobin Carboxyhemoglobin Sodium Potassium Chloride Carbon Dioxide BUN Creatinine Glucose POC Glucose 152 H Hemoglobin A1c Lactic Acid Calcium Phosphorus Magnesium Ferritin Total Bilirubin AST ALT Lactate Dehydrogenase C-Reactive Protein Albumin Triglycerides Arterial Blood Glucose 184 H 154 H Arterial Blood Ionized Calcium 3.6 L 3.5 L Urine Creatinine Coronavirus (PCR) Crossmatch 02/09/21 02/09/21 02/09/21 05:10 05:10 06:04 WBC RBC 2.14 L Hgb 7.0 L Hct 20.5 L MCV 96 H MCH 33 H MCHC RDW Plt Count Lymph % (Auto) Lymph # (Auto) Seg Neutrophils % Seg Neuts % (Manual) 82.0 H Lymphocytes % (Manual) 9.0 L Monocytes % (Manual) Nucleated RBC % 1.0 H Seg Neutrophils # Seg Neutrophils # Man 8.9 H Lymphocytes # (Manual) 1.0 L Monocytes # (Manual) Eosinophils # (Manual) INR D-Dimer ABG pH POC ABG pCO2 POC ABG pO2 ABG pO2 ABG HCO3 ABG O2 Saturation ABG Base Excess ABG Hemoglobin ABG Oxyhemoglobin ABG Sodium ABG Potassium ABG Chloride ABG Glucose Oxyhemoglobin Carboxyhemoglobin Sodium 135 L Potassium 3.2 L Chloride 91.0 L Carbon Dioxide 32 H BUN 54 H Creatinine 6.6 H Glucose 163 H POC Glucose 149 H Hemoglobin A1c Lactic Acid Calcium 6.2 L Phosphorus Magnesium Ferritin Total Bilirubin AST ALT Lactate Dehydrogenase C-Reactive Protein Albumin Triglycerides Arterial Blood Glucose Arterial Blood Ionized Calcium Urine Creatinine Coronavirus (PCR) Crossmatch 02/09/21 02/09/21 02/09/21 12:02 13:32 13:40 WBC RBC Hgb Hct MCV MCH MCHC RDW Plt Count Lymph % (Auto) Lymph # (Auto) Seg Neutrophils % Seg Neuts % (Manual) Lymphocytes % (Manual) Monocytes % (Manual) Nucleated RBC % Seg Neutrophils # Seg Neutrophils # Man Lymphocytes # (Manual) Monocytes # (Manual) Eosinophils # (Manual) INR D-Dimer ABG pH POC ABG pCO2 POC ABG pO2 ABG pO2 ABG HCO3 ABG O2 Saturation ABG Base Excess ABG Hemoglobin ABG Oxyhemoglobin ABG Sodium ABG Potassium ABG Chloride ABG Glucose Oxyhemoglobin Carboxyhemoglobin Sodium Potassium Chloride Carbon Dioxide BUN Creatinine Glucose POC Glucose 147 H Hemoglobin A1c Lactic Acid Calcium Phosphorus Magnesium Ferritin Total Bilirubin AST ALT Lactate Dehydrogenase C-Reactive Protein Albumin Triglycerides 250 H Arterial Blood Glucose Arterial Blood Ionized Calcium Urine Creatinine Coronavirus (PCR) Crossmatch See Detail 02/09/21 02/09/21 02/10/21 18:06 23:42 04:00 WBC RBC Hgb Hct MCV MCH MCHC RDW Plt Count Lymph % (Auto) Lymph # (Auto) Seg Neutrophils % Seg Neuts % (Manual) Lymphocytes % (Manual) Monocytes % (Manual) Nucleated RBC % Seg Neutrophils # Seg Neutrophils # Man Lymphocytes # (Manual) Monocytes # (Manual) Eosinophils # (Manual) INR D-Dimer ABG pH POC ABG pCO2 65.8 H POC ABG pO2 68.0 L ABG pO2 ABG HCO3 ABG O2 Saturation ABG Base Excess ABG Hemoglobin 8.3 L ABG Oxyhemoglobin ABG Sodium 132.4 L ABG Potassium 2.9 L ABG Chloride 92.0 L ABG Glucose 174 H Oxyhemoglobin Carboxyhemoglobin Sodium Potassium Chloride Carbon Dioxide BUN Creatinine Glucose POC Glucose 152 H 147 H Hemoglobin A1c Lactic Acid Calcium Phosphorus Magnesium Ferritin Total Bilirubin AST ALT Lactate Dehydrogenase C-Reactive Protein Albumin Triglycerides Arterial Blood Glucose 174 H Arterial Blood Ionized Calcium 3.4 L Urine Creatinine Coronavirus (PCR) Crossmatch 02/10/21 02/10/21 02/10/21 05:32 11:29 14:08 WBC 12.5 H RBC 2.14 L Hgb 6.6 L Hct 20.2 L MCV MCH MCHC RDW Plt Count Lymph % (Auto) Lymph # (Auto) Seg Neutrophils % Seg Neuts % (Manual) Lymphocytes % (Manual) Monocytes % (Manual) Nucleated RBC % Seg Neutrophils # Seg Neutrophils # Man Lymphocytes # (Manual) Monocytes # (Manual) Eosinophils # (Manual) INR D-Dimer ABG pH POC ABG pCO2 POC ABG pO2 ABG pO2 ABG HCO3 ABG O2 Saturation ABG Base Excess ABG Hemoglobin ABG Oxyhemoglobin ABG Sodium ABG Potassium ABG Chloride ABG Glucose Oxyhemoglobin Carboxyhemoglobin Sodium Potassium Chloride Carbon Dioxide BUN Creatinine Glucose POC Glucose 167 H 147 H Hemoglobin A1c Lactic Acid Calcium Phosphorus Magnesium Ferritin Total Bilirubin AST ALT Lactate Dehydrogenase C-Reactive Protein Albumin Triglycerides Arterial Blood Glucose Arterial Blood Ionized Calcium Urine Creatinine Coronavirus (PCR) Crossmatch 02/10/21 02/10/21 02/10/21 14:08 18:11 22:32 WBC RBC Hgb 6.4 L Hct 19.1 L* MCV MCH MCHC RDW Plt Count Lymph % (Auto) Lymph # (Auto) Seg Neutrophils % Seg Neuts % (Manual) Lymphocytes % (Manual) Monocytes % (Manual) Nucleated RBC % Seg Neutrophils # Seg Neutrophils # Man Lymphocytes # (Manual) Monocytes # (Manual) Eosinophils # (Manual) INR D-Dimer ABG pH POC ABG pCO2 POC ABG pO2 ABG pO2 ABG HCO3 ABG O2 Saturation ABG Base Excess ABG Hemoglobin ABG Oxyhemoglobin ABG Sodium ABG Potassium ABG Chloride ABG Glucose Oxyhemoglobin Carboxyhemoglobin Sodium 136 L Potassium 2.9 L* Chloride 90.2 L Carbon Dioxide 33 H BUN 42 H Creatinine 7.5 H Glucose 155 H POC Glucose 173 H Hemoglobin A1c Lactic Acid Calcium 6.1 L Phosphorus Magnesium Ferritin Total Bilirubin AST ALT Lactate Dehydrogenase C-Reactive Protein Albumin Triglycerides Arterial Blood Glucose Arterial Blood Ionized Calcium Urine Creatinine Coronavirus (PCR) Crossmatch 02/11/21 02/11/21 02/11/21 00:28 04:05 04:30 WBC RBC Hgb Hct MCV MCH MCHC RDW Plt Count Lymph % (Auto) Lymph # (Auto) Seg Neutrophils % Seg Neuts % (Manual) Lymphocytes % (Manual) Monocytes % (Manual) Nucleated RBC % Seg Neutrophils # Seg Neutrophils # Man Lymphocytes # (Manual) Monocytes # (Manual) Eosinophils # (Manual) INR D-Dimer ABG pH 7.307 L POC ABG pCO2 72.2 H POC ABG pO2 72.3 L ABG pO2 ABG HCO3 ABG O2 Saturation ABG Base Excess ABG Hemoglobin 8.2 L ABG Oxyhemoglobin ABG Sodium 132.3 L ABG Potassium 3.2 L ABG Chloride 91.0 L ABG Glucose 197 H Oxyhemoglobin Carboxyhemoglobin Sodium 135 L Potassium 3.3 L Chloride 87.1 L Carbon Dioxide 36 H BUN 71 H Creatinine 7.9 H Glucose 263 H POC Glucose 192 H Hemoglobin A1c Lactic Acid Calcium 6.2 L Phosphorus Magnesium Ferritin Total Bilirubin AST ALT Lactate Dehydrogenase C-Reactive Protein Albumin Triglycerides Arterial Blood Glucose 197 H Arterial Blood Ionized Calcium 3.3 L Urine Creatinine Coronavirus (PCR) Crossmatch 02/11/21 02/11/21 02/11/21 04:30 05:47 08:27 WBC RBC 2.22 L Hgb 7.2 L Hct 21.0 L MCV MCH MCHC RDW Plt Count Lymph % (Auto) 8.7 L Lymph # (Auto) 0.9 L Seg Neutrophils % 85.5 H Seg Neuts % (Manual) Lymphocytes % (Manual) Monocytes % (Manual) Nucleated RBC % Seg Neutrophils # 9.2 H Seg Neutrophils # Man Lymphocytes # (Manual) Monocytes # (Manual) Eosinophils # (Manual) INR 1.17 H D-Dimer 1930.92 H ABG pH POC ABG pCO2 POC ABG pO2 ABG pO2 ABG HCO3 ABG O2 Saturation ABG Base Excess ABG Hemoglobin ABG Oxyhemoglobin ABG Sodium ABG Potassium ABG Chloride ABG Glucose Oxyhemoglobin Carboxyhemoglobin Sodium Potassium Chloride Carbon Dioxide BUN Creatinine Glucose POC Glucose 189 H Hemoglobin A1c Lactic Acid Calcium Phosphorus Magnesium Ferritin Total Bilirubin AST ALT Lactate Dehydrogenase C-Reactive Protein Albumin Triglycerides Arterial Blood Glucose Arterial Blood Ionized Calcium Urine Creatinine Coronavirus (PCR) Crossmatch 02/11/21 02/11/21 02/11/21 09:00 09:00 13:18 WBC RBC Hgb Hct MCV MCH MCHC RDW Plt Count Lymph % (Auto) Lymph # (Auto) Seg Neutrophils % Seg Neuts % (Manual) Lymphocytes % (Manual) Monocytes % (Manual) Nucleated RBC % Seg Neutrophils # Seg Neutrophils # Man Lymphocytes # (Manual) Monocytes # (Manual) Eosinophils # (Manual) INR D-Dimer ABG pH POC ABG pCO2 POC ABG pO2 ABG pO2 ABG HCO3 ABG O2 Saturation ABG Base Excess ABG Hemoglobin ABG Oxyhemoglobin ABG Sodium ABG Potassium ABG Chloride ABG Glucose Oxyhemoglobin Carboxyhemoglobin Sodium Potassium Chloride Carbon Dioxide BUN Creatinine Glucose 126 H POC Glucose 160 H Hemoglobin A1c Lactic Acid Calcium Phosphorus Magnesium Ferritin 1253.0 H Total Bilirubin AST ALT Lactate Dehydrogenase 649 H C-Reactive Protein 12.60 H Albumin Triglycerides Arterial Blood Glucose Arterial Blood Ionized Calcium Urine Creatinine Coronavirus (PCR) Crossmatch 02/11/21 02/11/21 02/11/21 14:30 16:59 22:34 WBC RBC Hgb 7.1 L 6.7 L Hct 20.5 L 19.9 L* MCV MCH MCHC RDW Plt Count Lymph % (Auto) Lymph # (Auto) Seg Neutrophils % Seg Neuts % (Manual) Lymphocytes % (Manual) Monocytes % (Manual) Nucleated RBC % Seg Neutrophils # Seg Neutrophils # Man Lymphocytes # (Manual) Monocytes # (Manual) Eosinophils # (Manual) INR D-Dimer ABG pH POC ABG pCO2 POC ABG pO2 ABG pO2 ABG HCO3 ABG O2 Saturation ABG Base Excess ABG Hemoglobin ABG Oxyhemoglobin ABG Sodium ABG Potassium ABG Chloride ABG Glucose Oxyhemoglobin Carboxyhemoglobin Sodium Potassium Chloride Carbon Dioxide BUN Creatinine Glucose POC Glucose 151 H Hemoglobin A1c Lactic Acid Calcium Phosphorus Magnesium Ferritin Total Bilirubin AST ALT Lactate Dehydrogenase C-Reactive Protein Albumin Triglycerides Arterial Blood Glucose Arterial Blood Ionized Calcium Urine Creatinine Coronavirus (PCR) Crossmatch 02/11/21 02/12/21 02/12/21 23:42 04:41 05:19 WBC RBC Hgb Hct MCV MCH MCHC RDW Plt Count Lymph % (Auto) Lymph # (Auto) Seg Neutrophils % Seg Neuts % (Manual) Lymphocytes % (Manual) Monocytes % (Manual) Nucleated RBC % Seg Neutrophils # Seg Neutrophils # Man Lymphocytes # (Manual) Monocytes # (Manual) Eosinophils # (Manual) INR D-Dimer ABG pH POC ABG pCO2 POC ABG pO2 ABG pO2 69.0 L ABG HCO3 32.5 H ABG O2 Saturation ABG Base Excess 7.7 H ABG Hemoglobin 5.1 L ABG Oxyhemoglobin ABG Sodium ABG Potassium ABG Chloride ABG Glucose Oxyhemoglobin 94.7 L Carboxyhemoglobin Sodium Potassium Chloride Carbon Dioxide BUN Creatinine Glucose POC Glucose 165 H 153 H Hemoglobin A1c Lactic Acid Calcium Phosphorus Magnesium Ferritin Total Bilirubin AST ALT Lactate Dehydrogenase C-Reactive Protein Albumin Triglycerides Arterial Blood Glucose Arterial Blood Ionized Calcium Urine Creatinine Coronavirus (PCR) Crossmatch 02/12/21 02/12/21 02/12/21 06:35 06:35 08:40 WBC RBC 2.21 L Hgb 7.2 L Hct 20.7 L MCV MCH 33 H MCHC 35 H RDW Plt Count Lymph % (Auto) Lymph # (Auto) Seg Neutrophils % Seg Neuts % (Manual) Lymphocytes % (Manual) Monocytes % (Manual) Nucleated RBC % Seg Neutrophils # Seg Neutrophils # Man Lymphocytes # (Manual) Monocytes # (Manual) Eosinophils # (Manual) INR D-Dimer ABG pH POC ABG pCO2 POC ABG pO2 ABG pO2 ABG HCO3 ABG O2 Saturation ABG Base Excess ABG Hemoglobin ABG Oxyhemoglobin ABG Sodium ABG Potassium ABG Chloride ABG Glucose Oxyhemoglobin Carboxyhemoglobin Sodium 135 L Potassium 3.4 L Chloride 91.8 L Carbon Dioxide 36 H BUN 57 H Creatinine 6.8 H Glucose 163 H POC Glucose Hemoglobin A1c Lactic Acid Calcium 7.0 L Phosphorus Magnesium 1.60 L Ferritin Total Bilirubin AST ALT Lactate Dehydrogenase C-Reactive Protein Albumin Triglycerides Arterial Blood Glucose Arterial Blood Ionized Calcium Urine Creatinine Coronavirus (PCR) Crossmatch 02/12/21 02/12/21 02/12/21 10:45 12:04 17:19 WBC RBC Hgb Hct MCV MCH MCHC RDW Plt Count Lymph % (Auto) Lymph # (Auto) Seg Neutrophils % Seg Neuts % (Manual) Lymphocytes % (Manual) Monocytes % (Manual) Nucleated RBC % Seg Neutrophils # Seg Neutrophils # Man Lymphocytes # (Manual) Monocytes # (Manual) Eosinophils # (Manual) INR D-Dimer ABG pH POC ABG pCO2 POC ABG pO2 ABG pO2 ABG HCO3 ABG O2 Saturation ABG Base Excess ABG Hemoglobin ABG Oxyhemoglobin ABG Sodium ABG Potassium ABG Chloride ABG Glucose Oxyhemoglobin Carboxyhemoglobin Sodium Potassium Chloride Carbon Dioxide BUN Creatinine Glucose POC Glucose 165 H 165 H Hemoglobin A1c Lactic Acid Calcium Phosphorus Magnesium Ferritin Total Bilirubin AST ALT Lactate Dehydrogenase C-Reactive Protein Albumin Triglycerides 182 H Arterial Blood Glucose Arterial Blood Ionized Calcium Urine Creatinine Coronavirus (PCR) Crossmatch 02/12/21 02/13/21 02/13/21 23:18 05:00 05:36 WBC RBC Hgb Hct MCV MCH MCHC RDW Plt Count Lymph % (Auto) Lymph # (Auto) Seg Neutrophils % Seg Neuts % (Manual) Lymphocytes % (Manual) Monocytes % (Manual) Nucleated RBC % Seg Neutrophils # Seg Neutrophils # Man Lymphocytes # (Manual) Monocytes # (Manual) Eosinophils # (Manual) INR D-Dimer ABG pH POC ABG pCO2 60.8 H POC ABG pO2 76.4 L ABG pO2 ABG HCO3 ABG O2 Saturation ABG Base Excess ABG Hemoglobin 7.4 L ABG Oxyhemoglobin ABG Sodium 133.2 L ABG Potassium 3.3 L ABG Chloride 96.0 L ABG Glucose 168 H Oxyhemoglobin Carboxyhemoglobin Sodium Potassium Chloride Carbon Dioxide BUN Creatinine Glucose POC Glucose 163 H 151 H Hemoglobin A1c Lactic Acid Calcium Phosphorus Magnesium Ferritin Total Bilirubin AST ALT Lactate Dehydrogenase C-Reactive Protein Albumin Triglycerides Arterial Blood Glucose 168 H Arterial Blood Ionized Calcium 4.3 L Urine Creatinine Coronavirus (PCR) Crossmatch 02/13/21 02/13/21 02/13/21 06:40 06:40 06:40 WBC RBC 2.19 L Hgb 7.0 L Hct 20.8 L MCV 95 H MCH MCHC RDW Plt Count Lymph % (Auto) Lymph # (Auto) Seg Neutrophils % Seg Neuts % (Manual) Lymphocytes % (Manual) Monocytes % (Manual) Nucleated RBC % Seg Neutrophils # Seg Neutrophils # Man Lymphocytes # (Manual) Monocytes # (Manual) Eosinophils # (Manual) INR D-Dimer ABG pH POC ABG pCO2 POC ABG pO2 ABG pO2 ABG HCO3 ABG O2 Saturation ABG Base Excess ABG Hemoglobin ABG Oxyhemoglobin ABG Sodium ABG Potassium ABG Chloride ABG Glucose Oxyhemoglobin Carboxyhemoglobin Sodium 135 L Potassium 3.4 L Chloride 93.0 L Carbon Dioxide 32 H BUN 46 H Creatinine 5.8 H Glucose 148 H POC Glucose Hemoglobin A1c Lactic Acid Calcium 7.9 L Phosphorus Magnesium Ferritin Total Bilirubin AST ALT Lactate Dehydrogenase C-Reactive Protein 16.80 H Albumin Triglycerides Arterial Blood Glucose Arterial Blood Ionized Calcium Urine Creatinine Coronavirus (PCR) Crossmatch 02/13/21 02/13/21 02/13/21 06:40 07:38 07:38 WBC RBC Hgb Hct MCV MCH MCHC RDW Plt Count Lymph % (Auto) Lymph # (Auto) Seg Neutrophils % Seg Neuts % (Manual) Lymphocytes % (Manual) Monocytes % (Manual) Nucleated RBC % Seg Neutrophils # Seg Neutrophils # Man Lymphocytes # (Manual) Monocytes # (Manual) Eosinophils # (Manual) INR D-Dimer 1722.16 H ABG pH POC ABG pCO2 POC ABG pO2 ABG pO2 ABG HCO3 ABG O2 Saturation ABG Base Excess ABG Hemoglobin ABG Oxyhemoglobin ABG Sodium ABG Potassium ABG Chloride ABG Glucose Oxyhemoglobin Carboxyhemoglobin Sodium Potassium Chloride Carbon Dioxide BUN Creatinine Glucose POC Glucose Hemoglobin A1c Lactic Acid Calcium Phosphorus Magnesium 1.60 L Ferritin 976.5 H Total Bilirubin AST ALT Lactate Dehydrogenase C-Reactive Protein Albumin Triglycerides Arterial Blood Glucose Arterial Blood Ionized Calcium Urine Creatinine Coronavirus (PCR) Crossmatch 02/13/21 02/13/21 02/13/21 12:24 16:57 23:32 WBC RBC Hgb Hct MCV MCH MCHC RDW Plt Count Lymph % (Auto) Lymph # (Auto) Seg Neutrophils % Seg Neuts % (Manual) Lymphocytes % (Manual) Monocytes % (Manual) Nucleated RBC % Seg Neutrophils # Seg Neutrophils # Man Lymphocytes # (Manual) Monocytes # (Manual) Eosinophils # (Manual) INR D-Dimer ABG pH POC ABG pCO2 POC ABG pO2 ABG pO2 ABG HCO3 ABG O2 Saturation ABG Base Excess ABG Hemoglobin ABG Oxyhemoglobin ABG Sodium ABG Potassium ABG Chloride ABG Glucose Oxyhemoglobin Carboxyhemoglobin Sodium Potassium Chloride Carbon Dioxide BUN Creatinine Glucose POC Glucose 141 H 156 H 161 H Hemoglobin A1c Lactic Acid Calcium Phosphorus Magnesium Ferritin Total Bilirubin AST ALT Lactate Dehydrogenase C-Reactive Protein Albumin Triglycerides Arterial Blood Glucose Arterial Blood Ionized Calcium Urine Creatinine Coronavirus (PCR) Crossmatch 02/14/21 02/14/21 02/14/21 04:00 05:41 11:00 WBC RBC 2.14 L Hgb 6.9 L Hct 20.7 L MCV 97 H MCH 33 H MCHC RDW Plt Count Lymph % (Auto) Lymph # (Auto) Seg Neutrophils % Seg Neuts % (Manual) Lymphocytes % (Manual) Monocytes % (Manual) Nucleated RBC % Seg Neutrophils # Seg Neutrophils # Man Lymphocytes # (Manual) Monocytes # (Manual) Eosinophils # (Manual) INR D-Dimer ABG pH POC ABG pCO2 POC ABG pO2 ABG pO2 ABG HCO3 ABG O2 Saturation ABG Base Excess ABG Hemoglobin ABG Oxyhemoglobin ABG Sodium ABG Potassium ABG Chloride ABG Glucose Oxyhemoglobin Carboxyhemoglobin Sodium Potassium Chloride Carbon Dioxide BUN Creatinine Glucose POC Glucose 143 H Hemoglobin A1c Lactic Acid Calcium Phosphorus Magnesium Ferritin Total Bilirubin AST ALT Lactate Dehydrogenase C-Reactive Protein Albumin Triglycerides Arterial Blood Glucose Arterial Blood Ionized Calcium Urine Creatinine Coronavirus (PCR) Crossmatch See Detail 02/14/21 02/14/21 02/14/21 11:51 18:08 23:41 WBC RBC Hgb Hct MCV MCH MCHC RDW Plt Count Lymph % (Auto) Lymph # (Auto) Seg Neutrophils % Seg Neuts % (Manual) Lymphocytes % (Manual) Monocytes % (Manual) Nucleated RBC % Seg Neutrophils # Seg Neutrophils # Man Lymphocytes # (Manual) Monocytes # (Manual) Eosinophils # (Manual) INR D-Dimer ABG pH POC ABG pCO2 POC ABG pO2 ABG pO2 ABG HCO3 ABG O2 Saturation ABG Base Excess ABG Hemoglobin ABG Oxyhemoglobin ABG Sodium ABG Potassium ABG Chloride ABG Glucose Oxyhemoglobin Carboxyhemoglobin Sodium Potassium Chloride Carbon Dioxide BUN Creatinine Glucose POC Glucose 113 H 123 H 120 H Hemoglobin A1c Lactic Acid Calcium Phosphorus Magnesium Ferritin Total Bilirubin AST ALT Lactate Dehydrogenase C-Reactive Protein Albumin Triglycerides Arterial Blood Glucose Arterial Blood Ionized Calcium Urine Creatinine Coronavirus (PCR) Crossmatch 02/14/21 02/15/21 02/15/21 Unknown 05:00 05:00 WBC RBC Hgb Hct MCV MCH MCHC RDW Plt Count Lymph % (Auto) Lymph # (Auto) Seg Neutrophils % Seg Neuts % (Manual) Lymphocytes % (Manual) Monocytes % (Manual) Nucleated RBC % Seg Neutrophils # Seg Neutrophils # Man Lymphocytes # (Manual) Monocytes # (Manual) Eosinophils # (Manual) INR D-Dimer ABG pH POC ABG pCO2 53.4 H POC ABG pO2 61.8 L ABG pO2 ABG HCO3 ABG O2 Saturation ABG Base Excess ABG Hemoglobin 7.7 L ABG Oxyhemoglobin 88.8 L ABG Sodium ABG Potassium ABG Chloride ABG Glucose 143 H Oxyhemoglobin Carboxyhemoglobin 1.6 H Sodium Potassium Chloride 96.9 L Carbon Dioxide 33 H 31 H BUN 40 H 38 H Creatinine 5.2 H 4.8 H Glucose 152 H 132 H POC Glucose Hemoglobin A1c Lactic Acid Calcium 7.9 L Phosphorus Magnesium Ferritin Total Bilirubin AST ALT Lactate Dehydrogenase C-Reactive Protein Albumin Triglycerides Arterial Blood Glucose 143 H Arterial Blood Ionized Calcium Urine Creatinine Coronavirus (PCR) Crossmatch 02/15/21 02/15/21 02/15/21 05:00 05:27 12:05 WBC RBC 2.30 L Hgb 7.1 L Hct 22.1 L MCV 96 H MCH MCHC RDW 15.7 H Plt Count Lymph % (Auto) 11.0 L Lymph # (Auto) 1.1 L Seg Neutrophils % 83.0 H Seg Neuts % (Manual) Lymphocytes % (Manual) Monocytes % (Manual) Nucleated RBC % Seg Neutrophils # 8.6 H Seg Neutrophils # Man Lymphocytes # (Manual) Monocytes # (Manual) Eosinophils # (Manual) INR D-Dimer ABG pH POC ABG pCO2 POC ABG pO2 ABG pO2 ABG HCO3 ABG O2 Saturation ABG Base Excess ABG Hemoglobin ABG Oxyhemoglobin ABG Sodium ABG Potassium ABG Chloride ABG Glucose Oxyhemoglobin Carboxyhemoglobin Sodium Potassium Chloride Carbon Dioxide BUN Creatinine Glucose POC Glucose 133 H 123 H Hemoglobin A1c Lactic Acid Calcium Phosphorus Magnesium Ferritin Total Bilirubin AST ALT Lactate Dehydrogenase C-Reactive Protein Albumin Triglycerides Arterial Blood Glucose Arterial Blood Ionized Calcium Urine Creatinine Coronavirus (PCR) Crossmatch 02/15/21 02/15/21 02/16/21 17:08 23:52 03:44 WBC RBC Hgb Hct MCV MCH MCHC RDW Plt Count Lymph % (Auto) Lymph # (Auto) Seg Neutrophils % Seg Neuts % (Manual) Lymphocytes % (Manual) Monocytes % (Manual) Nucleated RBC % Seg Neutrophils # Seg Neutrophils # Man Lymphocytes # (Manual) Monocytes # (Manual) Eosinophils # (Manual) INR D-Dimer ABG pH 7.307 L POC ABG pCO2 59.5 H POC ABG pO2 63.2 L ABG pO2 ABG HCO3 ABG O2 Saturation ABG Base Excess ABG Hemoglobin 9.3 L ABG Oxyhemoglobin ABG Sodium ABG Potassium ABG Chloride ABG Glucose 148 H Oxyhemoglobin Carboxyhemoglobin Sodium Potassium Chloride Carbon Dioxide BUN Creatinine Glucose POC Glucose 129 H 136 H Hemoglobin A1c Lactic Acid Calcium Phosphorus Magnesium Ferritin Total Bilirubin AST ALT Lactate Dehydrogenase C-Reactive Protein Albumin Triglycerides Arterial Blood Glucose 148 H Arterial Blood Ionized Calcium Urine Creatinine Coronavirus (PCR) Crossmatch 02/16/21 02/16/21 02/16/21 05:26 06:00 12:14 WBC RBC Hgb Hct MCV MCH MCHC RDW Plt Count Lymph % (Auto) Lymph # (Auto) Seg Neutrophils % Seg Neuts % (Manual) Lymphocytes % (Manual) Monocytes % (Manual) Nucleated RBC % Seg Neutrophils # Seg Neutrophils # Man Lymphocytes # (Manual) Monocytes # (Manual) Eosinophils # (Manual) INR D-Dimer ABG pH POC ABG pCO2 POC ABG pO2 ABG pO2 ABG HCO3 ABG O2 Saturation ABG Base Excess ABG Hemoglobin ABG Oxyhemoglobin ABG Sodium ABG Potassium ABG Chloride ABG Glucose Oxyhemoglobin Carboxyhemoglobin Sodium Potassium Chloride Carbon Dioxide BUN 52 H Creatinine 6.0 H Glucose 138 H POC Glucose 135 H 128 H Hemoglobin A1c Lactic Acid Calcium Phosphorus Magnesium Ferritin Total Bilirubin AST ALT Lactate Dehydrogenase C-Reactive Protein Albumin Triglycerides Arterial Blood Glucose Arterial Blood Ionized Calcium Urine Creatinine Coronavirus (PCR) Crossmatch 02/16/21 02/16/21 02/16/21 17:09 17:09 17:09 WBC RBC Hgb Hct MCV MCH MCHC RDW Plt Count Lymph % (Auto) Lymph # (Auto) Seg Neutrophils % Seg Neuts % (Manual) Lymphocytes % (Manual) Monocytes % (Manual) Nucleated RBC % Seg Neutrophils # Seg Neutrophils # Man Lymphocytes # (Manual) Monocytes # (Manual) Eosinophils # (Manual) INR D-Dimer 4256.08 H ABG pH POC ABG pCO2 POC ABG pO2 ABG pO2 ABG HCO3 ABG O2 Saturation ABG Base Excess ABG Hemoglobin ABG Oxyhemoglobin ABG Sodium ABG Potassium ABG Chloride ABG Glucose Oxyhemoglobin Carboxyhemoglobin Sodium Potassium Chloride Carbon Dioxide BUN Creatinine Glucose POC Glucose Hemoglobin A1c Lactic Acid Calcium Phosphorus Magnesium Ferritin 980.6 H Total Bilirubin AST ALT Lactate Dehydrogenase 441 H C-Reactive Protein 20.20 H Albumin Triglycerides Arterial Blood Glucose Arterial Blood Ionized Calcium Urine Creatinine Coronavirus (PCR) Crossmatch 02/16/21 02/16/21 02/16/21 17:25 23:16 Unknown WBC RBC 2.19 L Hgb 7.1 L Hct 21.3 L MCV 98 H MCH 33 H MCHC RDW 16.0 H Plt Count Lymph % (Auto) Lymph # (Auto) Seg Neutrophils % Seg Neuts % (Manual) 85.0 H Lymphocytes % (Manual) 6.0 L Monocytes % (Manual) Nucleated RBC % 4.0 H Seg Neutrophils # Seg Neutrophils # Man Lymphocytes # (Manual) 0.5 L Monocytes # (Manual) Eosinophils # (Manual) INR D-Dimer ABG pH POC ABG pCO2 POC ABG pO2 ABG pO2 ABG HCO3 ABG O2 Saturation ABG Base Excess ABG Hemoglobin ABG Oxyhemoglobin ABG Sodium ABG Potassium ABG Chloride ABG Glucose Oxyhemoglobin Carboxyhemoglobin Sodium Potassium Chloride Carbon Dioxide BUN Creatinine Glucose POC Glucose 146 H 150 H Hemoglobin A1c Lactic Acid Calcium Phosphorus Magnesium Ferritin Total Bilirubin AST ALT Lactate Dehydrogenase C-Reactive Protein Albumin Triglycerides Arterial Blood Glucose Arterial Blood Ionized Calcium Urine Creatinine Coronavirus (PCR) Crossmatch 02/17/21 02/17/21 02/17/21 04:00 04:14 04:14 WBC RBC Hgb Hct MCV MCH MCHC RDW Plt Count Lymph % (Auto) Lymph # (Auto) Seg Neutrophils % Seg Neuts % (Manual) Lymphocytes % (Manual) Monocytes % (Manual) Nucleated RBC % Seg Neutrophils # Seg Neutrophils # Man Lymphocytes # (Manual) Monocytes # (Manual) Eosinophils # (Manual) INR D-Dimer 3183.35 H ABG pH 7.293 L POC ABG pCO2 59.5 H POC ABG pO2 68.1 L ABG pO2 ABG HCO3 ABG O2 Saturation ABG Base Excess ABG Hemoglobin 7.7 L ABG Oxyhemoglobin ABG Sodium 133.4 L ABG Potassium ABG Chloride ABG Glucose 143 H Oxyhemoglobin Carboxyhemoglobin Sodium 136 L Potassium Chloride 97.3 L Carbon Dioxide BUN 49 H Creatinine 5.3 H Glucose 139 H POC Glucose Hemoglobin A1c Lactic Acid Calcium Phosphorus Magnesium Ferritin Total Bilirubin AST ALT Lactate Dehydrogenase C-Reactive Protein Albumin Triglycerides Arterial Blood Glucose 143 H Arterial Blood Ionized Calcium Urine Creatinine Coronavirus (PCR) Crossmatch 02/17/21 02/17/21 02/17/21 04:14 04:14 04:14 WBC RBC 2.14 L Hgb 6.9 L Hct 21.0 L MCV 98 H MCH MCHC RDW 15.8 H Plt Count Lymph % (Auto) Lymph # (Auto) Seg Neutrophils % Seg Neuts % (Manual) Lymphocytes % (Manual) Monocytes % (Manual) Nucleated RBC % Seg Neutrophils # Seg Neutrophils # Man Lymphocytes # (Manual) Monocytes # (Manual) Eosinophils # (Manual) INR D-Dimer ABG pH POC ABG pCO2 POC ABG pO2 ABG pO2 ABG HCO3 ABG O2 Saturation ABG Base Excess ABG Hemoglobin ABG Oxyhemoglobin ABG Sodium ABG Potassium ABG Chloride ABG Glucose Oxyhemoglobin Carboxyhemoglobin Sodium Potassium Chloride Carbon Dioxide BUN Creatinine Glucose POC Glucose Hemoglobin A1c Lactic Acid Calcium Phosphorus Magnesium Ferritin 894.0 H Total Bilirubin AST ALT Lactate Dehydrogenase 399 H C-Reactive Protein 22.10 H Albumin Triglycerides Arterial Blood Glucose Arterial Blood Ionized Calcium Urine Creatinine Coronavirus (PCR) Crossmatch 02/17/21 02/17/21 02/17/21 06:06 07:45 12:25 WBC RBC Hgb 7.6 L Hct 22.8 L MCV MCH MCHC RDW Plt Count Lymph % (Auto) Lymph # (Auto) Seg Neutrophils % Seg Neuts % (Manual) Lymphocytes % (Manual) Monocytes % (Manual) Nucleated RBC % Seg Neutrophils # Seg Neutrophils # Man Lymphocytes # (Manual) Monocytes # (Manual) Eosinophils # (Manual) INR D-Dimer ABG pH POC ABG pCO2 POC ABG pO2 ABG pO2 ABG HCO3 ABG O2 Saturation ABG Base Excess ABG Hemoglobin ABG Oxyhemoglobin ABG Sodium ABG Potassium ABG Chloride ABG Glucose Oxyhemoglobin Carboxyhemoglobin Sodium Potassium Chloride Carbon Dioxide BUN Creatinine Glucose POC Glucose 134 H Hemoglobin A1c Lactic Acid Calcium Phosphorus Magnesium Ferritin Total Bilirubin AST ALT Lactate Dehydrogenase C-Reactive Protein Albumin Triglycerides Arterial Blood Glucose Arterial Blood Ionized Calcium Urine Creatinine Coronavirus (PCR) Crossmatch See Detail 02/17/21 02/17/21 02/17/21 12:35 17:56 23:34 WBC RBC Hgb Hct MCV MCH MCHC RDW Plt Count Lymph % (Auto) Lymph # (Auto) Seg Neutrophils % Seg Neuts % (Manual) Lymphocytes % (Manual) Monocytes % (Manual) Nucleated RBC % Seg Neutrophils # Seg Neutrophils # Man Lymphocytes # (Manual) Monocytes # (Manual) Eosinophils # (Manual) INR D-Dimer ABG pH POC ABG pCO2 POC ABG pO2 ABG pO2 ABG HCO3 ABG O2 Saturation ABG Base Excess ABG Hemoglobin ABG Oxyhemoglobin ABG Sodium ABG Potassium ABG Chloride ABG Glucose Oxyhemoglobin Carboxyhemoglobin Sodium Potassium Chloride Carbon Dioxide BUN Creatinine Glucose POC Glucose 114 H 128 H 120 H Hemoglobin A1c Lactic Acid Calcium Phosphorus Magnesium Ferritin Total Bilirubin AST ALT Lactate Dehydrogenase C-Reactive Protein Albumin Triglycerides Arterial Blood Glucose Arterial Blood Ionized Calcium Urine Creatinine Coronavirus (PCR) Crossmatch 02/18/21 02/18/21 02/18/21 04:03 04:55 05:02 WBC RBC 2.40 L Hgb 7.5 L Hct 23.1 L MCV 96 H MCH MCHC RDW 16.8 H Plt Count Lymph % (Auto) Lymph # (Auto) Seg Neutrophils % Seg Neuts % (Manual) Lymphocytes % (Manual) Monocytes % (Manual) Nucleated RBC % Seg Neutrophils # Seg Neutrophils # Man Lymphocytes # (Manual) Monocytes # (Manual) Eosinophils # (Manual) INR D-Dimer ABG pH 7.219 L POC ABG pCO2 58.7 H POC ABG pO2 64.2 L ABG pO2 ABG HCO3 ABG O2 Saturation ABG Base Excess ABG Hemoglobin ABG Oxyhemoglobin ABG Sodium 130.5 L ABG Potassium ABG Chloride ABG Glucose 147 H Oxyhemoglobin Carboxyhemoglobin Sodium 134 L Potassium Chloride 97.9 L Carbon Dioxide BUN 64 H Creatinine 6.5 H Glucose 135 H POC Glucose Hemoglobin A1c Lactic Acid Calcium 8.0 L Phosphorus Magnesium Ferritin Total Bilirubin AST ALT Lactate Dehydrogenase C-Reactive Protein Albumin Triglycerides Arterial Blood Glucose 147 H Arterial Blood Ionized Calcium Urine Creatinine Coronavirus (PCR) Crossmatch 02/18/21 02/18/21 02/18/21 05:27 10:00 11:51 WBC RBC Hgb Hct MCV MCH MCHC RDW Plt Count Lymph % (Auto) Lymph # (Auto) Seg Neutrophils % Seg Neuts % (Manual) Lymphocytes % (Manual) Monocytes % (Manual) Nucleated RBC % Seg Neutrophils # Seg Neutrophils # Man Lymphocytes # (Manual) Monocytes # (Manual) Eosinophils # (Manual) INR D-Dimer ABG pH POC ABG pCO2 POC ABG pO2 ABG pO2 ABG HCO3 ABG O2 Saturation ABG Base Excess ABG Hemoglobin ABG Oxyhemoglobin ABG Sodium ABG Potassium ABG Chloride ABG Glucose Oxyhemoglobin Carboxyhemoglobin Sodium Potassium Chloride Carbon Dioxide BUN Creatinine Glucose POC Glucose 130 H 123 H Hemoglobin A1c Lactic Acid Calcium Phosphorus Magnesium Ferritin Total Bilirubin AST ALT Lactate Dehydrogenase C-Reactive Protein Albumin Triglycerides Arterial Blood Glucose Arterial Blood Ionized Calcium Urine Creatinine Coronavirus (PCR) Positive A Crossmatch 02/18/21 02/18/21 02/19/21 18:10 23:35 05:00 WBC RBC Hgb Hct MCV MCH MCHC RDW Plt Count Lymph % (Auto) Lymph # (Auto) Seg Neutrophils % Seg Neuts % (Manual) Lymphocytes % (Manual) Monocytes % (Manual) Nucleated RBC % Seg Neutrophils # Seg Neutrophils # Man Lymphocytes # (Manual) Monocytes # (Manual) Eosinophils # (Manual) INR D-Dimer ABG pH 7.232 L POC ABG pCO2 64.3 H POC ABG pO2 ABG pO2 ABG HCO3 ABG O2 Saturation ABG Base Excess ABG Hemoglobin 8.1 L ABG Oxyhemoglobin ABG Sodium 133.5 L ABG Potassium ABG Chloride ABG Glucose 148 H Oxyhemoglobin Carboxyhemoglobin 1.6 H Sodium Potassium Chloride Carbon Dioxide BUN Creatinine Glucose POC Glucose 123 H 137 H Hemoglobin A1c Lactic Acid Calcium Phosphorus Magnesium Ferritin Total Bilirubin AST ALT Lactate Dehydrogenase C-Reactive Protein Albumin Triglycerides Arterial Blood Glucose 148 H Arterial Blood Ionized Calcium Urine Creatinine Coronavirus (PCR) Crossmatch 02/19/21 02/19/21 02/19/21 05:12 05:45 05:45 WBC RBC Hgb Hct MCV MCH MCHC RDW Plt Count Lymph % (Auto) Lymph # (Auto) Seg Neutrophils % Seg Neuts % (Manual) Lymphocytes % (Manual) Monocytes % (Manual) Nucleated RBC % Seg Neutrophils # Seg Neutrophils # Man Lymphocytes # (Manual) Monocytes # (Manual) Eosinophils # (Manual) INR D-Dimer 4840.82 H ABG pH POC ABG pCO2 POC ABG pO2 ABG pO2 ABG HCO3 ABG O2 Saturation ABG Base Excess ABG Hemoglobin ABG Oxyhemoglobin ABG Sodium ABG Potassium ABG Chloride ABG Glucose Oxyhemoglobin Carboxyhemoglobin Sodium 135 L Potassium Chloride 97.8 L Carbon Dioxide BUN 58 H Creatinine 5.6 H Glucose 140 H POC Glucose 134 H Hemoglobin A1c Lactic Acid Calcium Phosphorus Magnesium Ferritin Total Bilirubin AST ALT Lactate Dehydrogenase 345 H C-Reactive Protein 15.20 H Albumin Triglycerides 195 H Arterial Blood Glucose Arterial Blood Ionized Calcium Urine Creatinine Coronavirus (PCR) Crossmatch 02/19/21 02/19/21 02/19/21 05:45 12:00 17:48 WBC RBC Hgb Hct MCV MCH MCHC RDW Plt Count Lymph % (Auto) Lymph # (Auto) Seg Neutrophils % Seg Neuts % (Manual) Lymphocytes % (Manual) Monocytes % (Manual) Nucleated RBC % Seg Neutrophils # Seg Neutrophils # Man Lymphocytes # (Manual) Monocytes # (Manual) Eosinophils # (Manual) INR D-Dimer ABG pH POC ABG pCO2 POC ABG pO2 ABG pO2 ABG HCO3 ABG O2 Saturation ABG Base Excess ABG Hemoglobin ABG Oxyhemoglobin ABG Sodium ABG Potassium ABG Chloride ABG Glucose Oxyhemoglobin Carboxyhemoglobin Sodium Potassium Chloride Carbon Dioxide BUN Creatinine Glucose POC Glucose 122 H 119 H Hemoglobin A1c Lactic Acid Calcium Phosphorus Magnesium Ferritin 951.8 H Total Bilirubin AST ALT Lactate Dehydrogenase C-Reactive Protein Albumin Triglycerides Arterial Blood Glucose Arterial Blood Ionized Calcium Urine Creatinine Coronavirus (PCR) Crossmatch 02/20/21 02/20/21 02/20/21 03:20 04:00 11:48 WBC RBC Hgb Hct MCV MCH MCHC RDW Plt Count Lymph % (Auto) Lymph # (Auto) Seg Neutrophils % Seg Neuts % (Manual) Lymphocytes % (Manual) Monocytes % (Manual) Nucleated RBC % Seg Neutrophils # Seg Neutrophils # Man Lymphocytes # (Manual) Monocytes # (Manual) Eosinophils # (Manual) INR D-Dimer ABG pH 7.276 L POC ABG pCO2 57.3 H POC ABG pO2 71.0 L ABG pO2 ABG HCO3 ABG O2 Saturation ABG Base Excess ABG Hemoglobin 8.2 L ABG Oxyhemoglobin 91.9 L ABG Sodium 128.1 L ABG Potassium 4.8 H ABG Chloride ABG Glucose Oxyhemoglobin Carboxyhemoglobin 1.6 H Sodium 136 L Potassium Chloride Carbon Dioxide BUN 69 H Creatinine 6.4 H Glucose POC Glucose 131 H Hemoglobin A1c Lactic Acid Calcium 8.1 L Phosphorus Magnesium Ferritin Total Bilirubin AST ALT Lactate Dehydrogenase C-Reactive Protein Albumin Triglycerides Arterial Blood Glucose Arterial Blood Ionized Calcium 4.5 L Urine Creatinine Coronavirus (PCR) Crossmatch 02/20/21 02/20/21 02/21/21 18:05 23:28 02:53 WBC RBC Hgb Hct MCV MCH MCHC RDW Plt Count Lymph % (Auto) Lymph # (Auto) Seg Neutrophils % Seg Neuts % (Manual) Lymphocytes % (Manual) Monocytes % (Manual) Nucleated RBC % Seg Neutrophils # Seg Neutrophils # Man Lymphocytes # (Manual) Monocytes # (Manual) Eosinophils # (Manual) INR D-Dimer ABG pH 7.288 L POC ABG pCO2 52.7 H POC ABG pO2 81.5 L ABG pO2 ABG HCO3 ABG O2 Saturation ABG Base Excess ABG Hemoglobin 8.5 L ABG Oxyhemoglobin 93.6 L ABG Sodium 132.5 L ABG Potassium 4.6 H ABG Chloride ABG Glucose 106 H Oxyhemoglobin Carboxyhemoglobin 1.6 H Sodium Potassium Chloride Carbon Dioxide BUN Creatinine Glucose POC Glucose 114 H 118 H Hemoglobin A1c Lactic Acid Calcium Phosphorus Magnesium Ferritin Total Bilirubin AST ALT Lactate Dehydrogenase C-Reactive Protein Albumin Triglycerides Arterial Blood Glucose 106 H Arterial Blood Ionized Calcium 4.4 L Urine Creatinine Coronavirus (PCR) Crossmatch 02/21/21 02/21/21 02/21/21 05:29 11:42 16:35 WBC RBC Hgb Hct MCV MCH MCHC RDW Plt Count Lymph % (Auto) Lymph # (Auto) Seg Neutrophils % Seg Neuts % (Manual) Lymphocytes % (Manual) Monocytes % (Manual) Nucleated RBC % Seg Neutrophils # Seg Neutrophils # Man Lymphocytes # (Manual) Monocytes # (Manual) Eosinophils # (Manual) INR D-Dimer ABG pH POC ABG pCO2 POC ABG pO2 ABG pO2 ABG HCO3 ABG O2 Saturation ABG Base Excess ABG Hemoglobin ABG Oxyhemoglobin ABG Sodium ABG Potassium ABG Chloride ABG Glucose Oxyhemoglobin Carboxyhemoglobin Sodium Potassium 5.6 H Chloride 97.6 L Carbon Dioxide BUN 68 H Creatinine 5.7 H Glucose 160 H POC Glucose 111 H 131 H Hemoglobin A1c Lactic Acid Calcium 8.0 L Phosphorus 7.90 H Magnesium 2.60 H Ferritin Total Bilirubin AST ALT Lactate Dehydrogenase C-Reactive Protein Albumin Triglycerides Arterial Blood Glucose Arterial Blood Ionized Calcium Urine Creatinine Coronavirus (PCR) Crossmatch 02/21/21 02/22/21 02/22/21 17:17 00:04 04:22 WBC RBC Hgb Hct MCV MCH MCHC RDW Plt Count Lymph % (Auto) Lymph # (Auto) Seg Neutrophils % Seg Neuts % (Manual) Lymphocytes % (Manual) Monocytes % (Manual) Nucleated RBC % Seg Neutrophils # Seg Neutrophils # Man Lymphocytes # (Manual) Monocytes # (Manual) Eosinophils # (Manual) INR D-Dimer ABG pH 7.250 L POC ABG pCO2 60.1 H POC ABG pO2 57.6 L ABG pO2 ABG HCO3 ABG O2 Saturation ABG Base Excess ABG Hemoglobin 8.8 L ABG Oxyhemoglobin 87.0 L ABG Sodium 133.4 L ABG Potassium 5.1 H ABG Chloride ABG Glucose 124 H Oxyhemoglobin Carboxyhemoglobin Sodium Potassium Chloride Carbon Dioxide BUN Creatinine Glucose POC Glucose 135 H 121 H Hemoglobin A1c Lactic Acid Calcium Phosphorus Magnesium Ferritin Total Bilirubin AST ALT Lactate Dehydrogenase C-Reactive Protein Albumin Triglycerides Arterial Blood Glucose 124 H Arterial Blood Ionized Calcium Urine Creatinine Coronavirus (PCR) Crossmatch 02/22/21 02/22/21 02/22/21 05:33 09:41 09:41 WBC 13.2 H RBC 2.35 L Hgb 7.5 L Hct 22.7 L MCV 96 H MCH MCHC RDW 17.0 H Plt Count Lymph % (Auto) Lymph # (Auto) Seg Neutrophils % Seg Neuts % (Manual) 93.0 H Lymphocytes % (Manual) 4.0 L Monocytes % (Manual) Nucleated RBC % 1.0 H Seg Neutrophils # Seg Neutrophils # Man 12.3 H Lymphocytes # (Manual) 0.5 L Monocytes # (Manual) Eosinophils # (Manual) INR D-Dimer ABG pH POC ABG pCO2 POC ABG pO2 ABG pO2 ABG HCO3 ABG O2 Saturation ABG Base Excess ABG Hemoglobin ABG Oxyhemoglobin ABG Sodium ABG Potassium ABG Chloride ABG Glucose Oxyhemoglobin Carboxyhemoglobin Sodium Potassium 5.4 H Chloride Carbon Dioxide BUN 61 H Creatinine 5.5 H Glucose 117 H POC Glucose 114 H Hemoglobin A1c Lactic Acid Calcium 8.3 L Phosphorus Magnesium Ferritin Total Bilirubin AST ALT Lactate Dehydrogenase C-Reactive Protein Albumin Triglycerides Arterial Blood Glucose Arterial Blood Ionized Calcium Urine Creatinine Coronavirus (PCR) Crossmatch 02/22/21 02/22/21 02/23/21 12:08 17:06 04:00 WBC RBC Hgb Hct MCV MCH MCHC RDW Plt Count Lymph % (Auto) Lymph # (Auto) Seg Neutrophils % Seg Neuts % (Manual) Lymphocytes % (Manual) Monocytes % (Manual) Nucleated RBC % Seg Neutrophils # Seg Neutrophils # Man Lymphocytes # (Manual) Monocytes # (Manual) Eosinophils # (Manual) INR D-Dimer ABG pH 7.246 L POC ABG pCO2 POC ABG pO2 ABG pO2 119.4 H ABG HCO3 26.6 H ABG O2 Saturation ABG Base Excess ABG Hemoglobin 8.8 L ABG Oxyhemoglobin ABG Sodium ABG Potassium ABG Chloride ABG Glucose Oxyhemoglobin Carboxyhemoglobin Sodium Potassium Chloride Carbon Dioxide BUN Creatinine Glucose POC Glucose 133 H 114 H Hemoglobin A1c Lactic Acid Calcium Phosphorus Magnesium Ferritin Total Bilirubin AST ALT Lactate Dehydrogenase C-Reactive Protein Albumin Triglycerides Arterial Blood Glucose Arterial Blood Ionized Calcium Urine Creatinine Coronavirus (PCR) Crossmatch 02/23/21 02/23/21 02/24/21 06:20 11:42 03:43 WBC RBC Hgb Hct MCV MCH MCHC RDW Plt Count Lymph % (Auto) Lymph # (Auto) Seg Neutrophils % Seg Neuts % (Manual) Lymphocytes % (Manual) Monocytes % (Manual) Nucleated RBC % Seg Neutrophils # Seg Neutrophils # Man Lymphocytes # (Manual) Monocytes # (Manual) Eosinophils # (Manual) INR D-Dimer ABG pH 7.287 L POC ABG pCO2 54.7 H POC ABG pO2 ABG pO2 ABG HCO3 ABG O2 Saturation ABG Base Excess ABG Hemoglobin 8.5 L ABG Oxyhemoglobin ABG Sodium 135.6 L ABG Potassium ABG Chloride ABG Glucose 117 H Oxyhemoglobin Carboxyhemoglobin Sodium Potassium Chloride 97.6 L Carbon Dioxide BUN 79 H Creatinine 6.2 H Glucose POC Glucose 108 H Hemoglobin A1c Lactic Acid Calcium 8.3 L Phosphorus Magnesium Ferritin Total Bilirubin AST ALT Lactate Dehydrogenase C-Reactive Protein Albumin Triglycerides Arterial Blood Glucose 117 H Arterial Blood Ionized Calcium Urine Creatinine Coronavirus (PCR) Crossmatch 02/24/21 02/24/21 02/24/21 04:25 04:25 04:25 WBC 11.5 H RBC 2.47 L Hgb 7.7 L Hct 23.5 L MCV 95 H MCH MCHC RDW 16.7 H Plt Count Lymph % (Auto) Lymph # (Auto) Seg Neutrophils % Seg Neuts % (Manual) 82.0 H Lymphocytes % (Manual) 3.0 L Monocytes % (Manual) 11.0 H Nucleated RBC % Seg Neutrophils # Seg Neutrophils # Man 9.4 H Lymphocytes # (Manual) 0.3 L Monocytes # (Manual) 1.3 H Eosinophils # (Manual) INR D-Dimer 4695.21 H ABG pH POC ABG pCO2 POC ABG pO2 ABG pO2 ABG HCO3 ABG O2 Saturation ABG Base Excess ABG Hemoglobin ABG Oxyhemoglobin ABG Sodium ABG Potassium ABG Chloride ABG Glucose Oxyhemoglobin Carboxyhemoglobin Sodium Potassium Chloride Carbon Dioxide BUN 68 H Creatinine 4.9 H Glucose 113 H POC Glucose Hemoglobin A1c Lactic Acid Calcium Phosphorus Magnesium Ferritin Total Bilirubin AST ALT Lactate Dehydrogenase C-Reactive Protein 7.20 H Albumin Triglycerides Arterial Blood Glucose Arterial Blood Ionized Calcium Urine Creatinine Coronavirus (PCR) Crossmatch 02/24/21 02/24/21 02/24/21 04:25 05:01 11:12 WBC RBC Hgb Hct MCV MCH MCHC RDW Plt Count Lymph % (Auto) Lymph # (Auto) Seg Neutrophils % Seg Neuts % (Manual) Lymphocytes % (Manual) Monocytes % (Manual) Nucleated RBC % Seg Neutrophils # Seg Neutrophils # Man Lymphocytes # (Manual) Monocytes # (Manual) Eosinophils # (Manual) INR D-Dimer ABG pH POC ABG pCO2 POC ABG pO2 ABG pO2 ABG HCO3 ABG O2 Saturation ABG Base Excess ABG Hemoglobin ABG Oxyhemoglobin ABG Sodium ABG Potassium ABG Chloride ABG Glucose Oxyhemoglobin Carboxyhemoglobin Sodium Potassium Chloride Carbon Dioxide BUN Creatinine Glucose POC Glucose 116 H 112 H Hemoglobin A1c Lactic Acid Calcium Phosphorus Magnesium Ferritin 1116.0 H Total Bilirubin AST ALT Lactate Dehydrogenase C-Reactive Protein Albumin Triglycerides Arterial Blood Glucose Arterial Blood Ionized Calcium Urine Creatinine Coronavirus (PCR) Crossmatch
[2021-02-24] MEDS: HEPARIN 5,000 UNIT/1 ML VIAL SUB-Q SCH ×2 (14:47→21:27)
--- NOTE | 2021-02-24 18:13 | Progress Note ---
Assessment and Plan Assessment and plan: This is a 60-year-old male with diabetes mellitus, hypertension, hyperlipidemia, chronic renal insufficiency who was admitted on 01/23 as a COVID-19 PUI with Sepsis, COVID-19 pneumonia, coag negative staph bacteremia, acute hypoxic respiratory failure, and acute kidney injury. Sepsis COVID-19 pneumonia Coag-neg Staph bacteremia Acute hypoxic respiratory failure Acute kidney injury, HD initiated 02/03 Anemia Diabetes mellitus Hypertension Hyperlipidemia Chronic renal insufficiency Elevated D-dimer -CCM, nephrology, infectious disease, GI , neurology consulted, appreciate recommendations -s/p Antibiotic therapy, remdesivir, Steroid therapy -COVID-19 PCR positive, Pneumonia on CXR -Mechanical ventilation, wean as tolerated -VAP bundle -HD per nephrology -S/p 4 units PRBC during stay -Trend BMP, CBC, COVID-19 inflammatory markers -Bilateral lower extremity and upper extremity Doppler ultrasound negative for DVT/SVT -SSI and Long-acting insulin -Accu-Cheks every 6 while on tube feedings -Hold home antihypertensive regimen and resume when appropriate -S/p vasopressor support -Blood pressure monitoring per protocol -S/p NaHCO3 gtt -02/17 CT head showed no acute intracranial abnormality, paranasal sinus disease -Bowel regimen -02/24 EEG pending DVT/GI prophylaxis: SCDs to bilateral lower extremities while in bed, PPI, heparin subq Dispo: ICU The high probability of a clinically significant, sudden or life threatening deterioration of the [multi] system(s) required my full and direct attention, intervention and personal management. The aggregate critical care time was [32] minutes. This time is in addition to time spent performing reported procedures but includes the following: [x] Data Review and interpretation [x] Patient assessment and monitoring of vital signs [x] Documentation [x] Medication orders and management History Interval history: This is a 60-year-old male with diabetes mellitus, hypertension, hyperlipidemia, chronic renal insufficiency presents to the emergency department on 01/23 with shortness of breath, fevers chills, loss of smell and taste and body aches for the past 3 days via EMS. Per EMS patient's oxygen saturation on room air was 50% and after being placed on nonrebreather it increased 75%. Upon arrival to the emergency department patient was being bagged by EMS. In the emergency room patient was intubated due to severe hypoxia, increased work of breathing and lethargy. Patient was sedated on propofol and fentanyl. Patient presented with fever, tachycardia, tachypnea and acute hypoxic respiratory failure with PNA on CXR meeting Sepsis criteria. Lab work in the emergency department revealed hyponatremia, hypokalemia, hypochloremia, elevated CR/BUN and CXR showed bilateral pneumonia. Patient was admitted to the hospital service as a COVID-19 PUI with consults to infectious disease, nephrology and critical care medicine. 01/24/2021: Patient is intubated and sedated, patient is positive for COVID-19 infection. ID was consulted and put on dexamethasone and remdesivir. Patient has DEISI and nephrology is following. Creatinine stable, patient is urinating. Discussed with nephrology and he is okay with remdesivir. Pulmonary critical care is following for his vent setting. PEEP of 8 and FiO2 of 85%. Patient was alert and off sedatives. 01/25/2021; patient is intubated and on mechanical ventilation. Continue with treatment of Covid. Nephrology and ID is following. Pulmonary is following for vent management 01/26: Remains on mechanical ventilation and [facility] increased his PEEP. [facility] has ordered Precedex for sedation. Possibly need to prone this p.m. No acute events reported overnight. This morning his D-dimer is greater than 10,000 and we have started him on Lovenox 120 mg daily. Nutrition has been consulted for initiation of tube feedings. Patient remains sedated on propofol 40 and fentanyl for the time my examination this morning. 01/27: Continue Lovenox, remdesivir and empiric antibiotics. Patient had a T-max of 101 overnight. The time of examination patient is on CMV 500/18/14/0.61. Kidney function slightly worsened. Sedated on fentanyl ground-level fall and Precedex. Nephrology has increased IV fluids to 100 ml/hr. Continue to trend BMP and CBC. Sedation vacation attempt by RN this AM. 01/28: Patient completed antibiotics today CCM will paralyze patient and increase sedation. PICC line ordered for possible vasopressor therapy need. Patient's D-dimer remains greater than 10,000 and he still has hyperchloremia. Patient's kidney function has improved today. May need to prone the patient if no improvement in oxygenation is noted in the next 24 hours. The time of my examination patient is sedated with propofol, fentanyl and Precedex and is on assist control 500/18/16/0.80 hypoxic on ABG on 60% FiO2. 01/29: Patient was started on Nimbex yesterday and his ABG this morning showed respiratory acidosis with hypercapnia and his respiratory rate was increased. We will obtain a repeat ABG this afternoon. This morning patient is hypernatre roma, hyperkalemic and hyperchloremic. His potassium has been corrected with the management and will obtain repeat BMP tomorrow. His kidney functions have remained stable and we will await nephrology's input. No acute events reported overnight. This morning the time my examination patient sedated with propofol, Precedex and fentanyl and paralyzed with Nimbex. He is on assist control 500/24/16 0.80. 01/30: This morning patient is hypokalemic again and was given Kayexalate. Patient has hypernatremia and hyper chloremia and his renal function is slightly worse after receiving Lasix yesterday. His D-dimer remains greater than 10,000 and he is still on a paralytic. Patient is sedated on Precedex, fentanyl, propofol. Mechanical ventilation settings seven-point 2/69/61/28. [facility] has decided to continue paralytics for 48 more hours and will attempt proning the patient. Increased free water flushes 300 cc every 4 hours. Patient states has restarted his antibiotics cefepime and vancomycin and recultured. 01/31/21 Hyperkalemia, Treated 02/01/21 Hyperkalemia, Treated 02/02: Patient's kidney function continues to worsen and a stat BMP this morning shows BUN/creatinine 20/6.1 and he remains hypocalcemic and hypernatremic, hypokalemic and hypochloremic. Patient received 2 g of calcium gluconate and Kayexalate and his repeat potassium was 4.3 this afternoon. He remains antibiotic therapy and steroids. Nephrology has placed the patient on bicarb drip given metabolic acidosis and has decided to hold off hemodialysis till tomorrow.The time my examination patient is sedated on fentanyl, Precedex and on assist control 500/20/12/0.70. s/p paralytic. 02/03: Today patient's ABG shows respiratory acidosis however it is improving, hypernatremia, hyperchloremia, metabolic acidosis on BMP, worsening kidney function BUN/creatinine 130/9.2 with hyperphosphatemia. Patient received a Vas- Cath to his right IJ for initiation of dialysis. At the time of my examination patient remains sedated on fentanyl, propofol and Precedex with vasopressor support with Levophed at 2. 02/04: At the time of examination patient was on assist control tidal volume 500, rate 40, PEEP of 12, FiO2 85%. Patient had a T-max of 100.9 and infectious disease has stopped his vancomycin given negative MRSA. This afternoon patient respiked his temperature and was pancultured again. Patient was started on hemodialysis yesterday and will receive HD again today. Patient is sedated on Precedex, propofol, fentanyl and remains on Levophed. He is on assist control tidal volume 500, rate of 30, PEEP of 12, FiO2 of 85%. Patient still has some respiratory acidosis however his hypernatremia and hyperchloremia have improved and his metabolic acidosis has resolved. Patient will receive hemodialysis today 02/05: Patient continues to have low-grade fever temp this morning time examination he was on assist control tidal volume 500, and sedated on propofol/fentanyl/Precedex and is on Levophed. Hemodialysis per nephrology. Antibiotics per ID. Patient's blood culture from 02/04 grew gram-positive cocci in clusters in 1/2 bottles and he was started on vancomycin. 02/06: Patients ABG showed respiratory acidosis and the tracings were changed however a repeat ABG showed showed acidosis.[facility] will start a bicarb drip after giving 2 amps of bicarb push. Yesterday patient blood cultures grew gram- positive cocci and he was started on vancomycin. At the time my examination patient was on assist control tidal volume 550, rate 34, PEEP 16, FiO2 90% and sedated on fentanyl, Precedex, propofol elevated pressure support with Levophed. Bilateral lower extremity Doppler ultrasounds done yesterday showed no evidence of DVT/SVT. 02/07/2021; patient is still on the vent with PEEP of 16 and FiO2 of 90%, sedated with fentanyl Precedex and propofol. Patient still requiring Levophed. Patient was sedated yesterday and was given bicarb push. Blood culture grew gram-positive cocci in clusters and he is on vancomycin, will follow identification. 02/08/2021;patient is still on the vent with PEEP of 16 and FiO2 of 90%, sedated with fentanyl Precedex and propofol. Patient still requiring Levophed. Patient was sedated yesterday and was given bicarb push. Blood culture grew gram- positive cocci in clusters and he is on vancomycin, will follow identification. Patient is currently on dialysis. Patient is anemic transfuse if hemoglobin is below 7. 02/09: This morning patient has slight hypokalemia, hypochorlemia, hyponatremia and metabolic alkalosis. [facility] will continue bicarb gtt given that the patient does not have HD access at this time. We will replete the potassium and recheck BMP in the AM. We will type and cross in anticipation of PRBC transfusion. This morning he is sedated on Ativan, fentayl, and precedex. Will obtain a triglyceride level today in hopes to resume propofol. Patient is alkalotic and BMP however we will continue with bicarb drip per [facility] given that the patient does not have any access for hemodialysis. Anticipate replacing hemodialysis catheter tomorrow or Tuesday. The time my examination he is on AC TV 550, Rate 34, PeeP 16, FiO2 .65. 02/10: A.m. labs still pending, [facility] plans to replace HD catheter tomorrow as the patient is still febrile however his fever curve is trending down, remains on a bicarb drip and on vancomycin. Today at the time my examination patient was se dated on Precedex, Ativan and fentanyl and he is on assist control tidal 11/04/1951, rate 34, PEEP 16, FiO2 65%. Overnight patient was hypotensive and received 1 dose of midodrine. 02/11: Patient is still having low-grade temperatures that we will obtain a bilateral lower upper extremity venous Doppler ultrasound given that his repeat cultures have been negative so far. Patient received a Vas-Cath today for hemodialysis. The time examination patient is on assist control tidal volume 550, rate of 34, PEEP of 16 and FiO2 of 75%. Patient was hypokalemic and anemic yesterday which were both repleted with potassium and 1 unit PRBC. 02/12: 02/12: Patient had a 12-second run of V. tach today, his potassium and magnesium were low which was repleted. Renal adjusted potassium bath. We will obtain a triglyceride level in hopes to restarting to prevent as needed. This morning at the time my examination patient was sedated on fentanyl, Ativan and Precedex and remained on a bicarb drip. He was on assist control tidal volume 550, rate 34, PEEP 16, FiO2 85%. We will obtain a occult stool given no evident source of bleeding and need for transfusion. Anemia possibly due to hemodialysis. 02/13: Patient's T-max was 100.7, remains on fentanyl, Ativan, Precedex and bicarb drip this morning at some examination on assist control tidal volume 550, rate 34, PEEP 16 and FiO2 85%. On the labs this morning is slightly hypokalemic and remains metabolic alkalotic on BMP. His occult was positive. His Lovenox and consult GI. Patient received hemodialysis today. 02/14: cont PPI, GI recommended to scope now, monitor clinically, tolerating TF, remains intubated. Hb 6.9 today - transfuse another unit. very poor prognosis. 02/15: H&H appears to be stable following 1 unit of transfusion yesterday. Continue to hold heparin and aspirin products. Continue to monitor clinically. Poor prognosis. Wean off from vent as tolerated. 02/16: Infectious disease has signed off, his Ativan drip was discontinued and to prevent drip will be started when patient needs it. T-max 100.6 yesterday afternoon. He received hemodialysis today and at the time my examination was still on mechanical ventilation assist control tidal volume 550, rate 34, PEEP 16 on 70% FiO2. Patient was sedated on fentanyl dexamethasone and Ativan. No acute events reported overnight. 02/17: This morning patient was scheduled to get 2 units PRBC however his repeat H/H after 1 unit PRBC was 7.6/22.8 and the width of the second unit PRBC. This morning patient was sedated on fentanyl, propofol, Precedex and on assist contr ol tolerated by 50, rate 34, PEEP of 16, FiO2 35%. Wound care was consulted today for his upper lip wound. Nephrology continues to withhold dialysis. No acute events reported overnight. Dr. Adkins was unable to contact family for updates. 02/18: Family updated by Dr. Adkins and Dr. Reddy. Patient had a hemodialysis today. The time my examination patient was on assist control tidal volume 550, rate 34, PEEP 16 and FiO2 35%. Overnight patient had a CT head and he was placed on 3% FiO2 and took "a long time to recover" per RN report. 02/19: Patient's D-dimer is trending up therefore he was started on prophylactic anticoagulation, no bowel movement for several days so he was started on mag citrate today. The time examination patient is sedated on Precedex 1.2, fentanyl 3, propofol 20 on assist control tidal volume 550, rate 34, PEEP 16, 80% FiO2 and on his ABG his PaO2 is 106. RT will try to wean as tolerated. Repeat COVID-19 PCR today was positive.Dr. Adkins updated the family today. 02/20: Patient received hemodialysis today. In the time my examination patient was sedated on Precedex, fentanyl, propofol and on assist control tidal line 550, rate 34, PEEP of 16 and 75% FiO2. Patient had a bowel movement yesterday. 02/21 no new concerns at this time afebrile Hospital course remains uncomplicated. 02/22. Hospital course complicated by an episode of ectopy over the p.m. Patient required Levophed for blood pressure control. Remains intubated sedated. Tolerated hemodialysis yesterday. 02/23: At the time my examination patient is on assist control tidal volume 550, rate 34, PEEP 16, FiO2 70% and is not sedated. Patient does not follow commands however his eyes open spontaneously and he does not track/focus. 02/24: Neurology consulted, EEG pending. No acute events reported overnight. Patient remains on hyperventilation totaling 550, rate 34, PEEP of 16 on 70% FiO2. Patient received hemodialysis yesterday. Hospitalist Physical - Constitutional Vitals: Temp Pulse Resp BP Pulse Ox 98.4 F 105 H 36 H 118/68 90 02/24/21 16:00 02/24/21 17:00 02/24/21 17:00 02/24/21 17:00 02/24/21 17:00 General appearance: Present: no acute distress - EENT Eyes: Present: PERRL ENT: poor dentition - Neck Neck: Absent: masses or JVD, cervical LAD - Respiratory Respiratory effort: normal Respiratory: bilateral: diminished - Cardiovascular Rhythm: regular Heart Sounds: Present: S1 & S2. Absent: systolic murmur, diastolic murmur - Extremities Extremities: no ischemia, pulses intact, pulses symmetrical, normal temperature, normal color Extremity abnormal: edema Peripheral Pulses: within normal limits - Abdominal General gastrointestinal: soft, non-tender, non-distended, normal bowel sounds - Integumentary Integumentary: Present: warm, dry - Psychiatric Psychiatric: other (opens eyes spontaneously) - Neurologic Neurologic: other (Does not track/focus, does not follow commands except for eyes, opens eyes spontaneously and to verbal stimuli) HEART Score - HEART Score Risk factors: 1-2 risk factors Troponin: < normal limit - Critical Actions Critical Actions: 0-3 pts:0.9-1.7%risk of adverse cardiac event.Candidate for discharge Results - Labs CBC & Chem 7: 02/24/21 04:25 02/24/21 04:25 Labs: Laboratory Last Values WBC 11.5 K/mm3 (4.5-11.0) H 02/24/21 04:25 RBC 2.47 M/mm3 (3.65-5.03) L 02/24/21 04:25 Hgb 7.7 gm/dl (11.8-15.2) L 02/24/21 04:25 Hct 23.5 % (35.5-45.6) L 02/24/21 04:25 MCV 95 fl (84-94) H 02/24/21 04:25 MCH 31 pg (28-32) 02/24/21 04:25 MCHC 33 % (32-34) 02/24/21 04:25 RDW 16.7 % (13.2-15.2) H 02/24/21 04:25 Plt Count 410 K/mm3 (140-440) 02/24/21 04:25 Lymph % (Auto) 11.0 % (13.4-35.0) L 02/15/21 05:00 [place] % (Auto) 4.2 % (0.0-7.3) 02/15/21 05:00 Eos % (Auto) 1.2 % (0.0-4.3) 02/15/21 05:00 Baso % (Auto) 0.6 % (0.0-1.8) 02/15/21 05:00 Lymph # (Auto) 1.1 K/mm3 (1.2-5.4) L 02/15/21 05:00 [place] # (Auto) 0.4 K/mm3 (0.0-0.8) 02/15/21 05:00 Eos # (Auto) 0.1 K/mm3 (0.0-0.4) 02/15/21 05:00 Baso # (Auto) 0.1 K/mm3 (0.0-0.1) 02/15/21 05:00 Add Manual Diff Complete 02/24/21 04:25 Total Counted 100 02/24/21 04:25 Seg Neutrophils % 83.0 % (40.0-70.0) H 02/15/21 05:00 Seg Neuts % (Manual) 82.0 % (40.0-70.0) H 02/24/21 04:25 Band Neutrophils % 2.0 % 02/16/21 Unknown Lymphocytes % (Manual) 3.0 % (13.4-35.0) L 02/24/21 04:25 Reactive Lymphs % (Man) 1.0 % 01/27/21 05:29 Monocytes % (Manual) 11.0 % (0.0-7.3) H 02/24/21 04:25 Eosinophils % (Manual) 1.0 % (0.0-4.3) 02/24/21 04:25 Basophils % (Manual) 1.0 % (0.0-1.8) 02/24/21 04:25 Metamyelocytes % 2.0 % 02/24/21 04:25 Nucleated RBC % Not Reportable 02/24/21 04:25 Seg Neutrophils # 8.6 K/mm3 (1.8-7.7) H 02/15/21 05:00 Seg Neutrophils # Man 9.4 K/mm3 (1.8-7.7) H 02/24/21 04:25 Band Neutrophils # 0.0 K/mm3 02/24/21 04:25 Lymphocytes # (Manual) 0.3 K/mm3 (1.2-5.4) L 02/24/21 04:25 Abs React Lymphs (Man) 0.0 K/mm3 02/24/21 04:25 Monocytes # (Manual) 1.3 K/mm3 (0.0-0.8) H 02/24/21 04:25 Eosinophils # (Manual) 0.1 K/mm3 (0.0-0.4) 02/24/21 04:25 Basophils # (Manual) 0.1 K/mm3 (0.0-0.1) 02/24/21 04:25 Metamyelocytes # 0.2 K/mm3 02/24/21 04:25 Myelocytes # 0.0 K/mm3 02/24/21 04:25 Promyelocytes # 0.0 K/mm3 02/24/21 04:25 Blast Cells # 0.0 K/mm3 02/24/21 04:25 WBC Morphology Not Reportable 02/24/21 04:25 Hypersegmented Neuts Not Reportable 02/24/21 04:25 Hyposegmented Neuts Not Reportable 02/24/21 04:25 Hypogranular Neuts Not Reportable 02/24/21 04:25 Smudge Cells Not Reportable 02/24/21 04:25 Toxic Granulation Not Reportable 02/24/21 04:25 Toxic Vacuolation Not Reportable 02/24/21 04:25 Dohle Bodies Not Reportable 02/24/21 04:25 Pelger-Huet Anomaly Not Reportable 02/24/21 04:25 Fátima Rods Not Reportable 02/24/21 04:25 Platelet Estimate Consistent w auto 02/24/21 04:25 Clumped Platelets Not Reportable 02/24/21 04:25 Plt Clumps, EDTA Not Reportable 02/24/21 04:25 Large Platelets Not Reportable 02/24/21 04:25 Giant Platelets Not Reportable 02/24/21 04:25 Platelet Satelliting Not Reportable 02/24/21 04:25 Plt Morphology Comment Not Reportable 02/24/21 04:25 RBC Morphology Not Reportable 02/24/21 04:25 Dimorphic RBCs Not Reportable 02/24/21 04:25 Polychromasia Few 02/24/21 04:25 Hypochromasia Not Reportable 02/24/21 04:25 Poikilocytosis Not Reportable 02/24/21 04:25 Anisocytosis 1+ 02/24/21 04:25 Microcytosis Not Reportable 02/24/21 04:25 Macrocytosis Not Reportable 02/24/21 04:25 Spherocytes Not Reportable 02/24/21 04:25 Pappenheimer Bodies Not Reportable 02/24/21 04:25 Sickle Cells Not Reportable 02/24/21 04:25 Target Cells Not Reportable 02/24/21 04:25 Tear Drop Cells Not Reportable 02/24/21 04:25 Ovalocytes Not Reportable 02/24/21 04:25 Helmet Cells Not Reportable 02/24/21 04:25 [place] Bodies Not Reportable 02/24/21 04:25 [place] Rings Not Reportable 02/24/21 04:25 Ludmila Cells Not Reportable 02/24/21 04:25 Bite Cells Not Reportable 02/24/21 04:25 Crenated Cell Not Reportable 02/24/21 04:25 Elliptocytes Not Reportable 02/24/21 04:25 Acanthocytes (Spur) Not Reportable 02/24/21 04:25 Rouleaux Not Reportable 02/24/21 04:25 Hemoglobin C Crystals Not Reportable 02/24/21 04:25 Schistocytes Not Reportable 02/24/21 04:25 Malaria parasites Not Reportable 02/24/21 04:25 Aquiles Bodies Not Reportable 02/24/21 04:25 Hem Pathologist Commnt No 02/24/21 04:25 PT 14.9 Sec. (12.2-14.9) 02/11/21 08:27 INR 1.17 (0.87-1.13) H 02/11/21 08:27 D-Dimer 4695.21 ng/mlDDU (0-234) H 02/24/21 04:25 ABG pH 7.287 (7.320-7.450) L 02/24/21 03:43 POC ABG pCO2 54.7 mmHg (32.0-48.0) H 02/24/21 03:43 ABG pCO2 62.7 mm Hg 02/23/21 04:00 POC ABG pO2 107.8 mmHg (83-108) 02/24/21 03:43 ABG pO2 119.4 mm Hg (80.0-90.0) H 02/23/21 04:00 POC ABG HCO3 25.5 02/24/21 03:43 ABG HCO3 26.6 mmol/L (20.0-26.0) H 02/23/21 04:00 ABG O2 Saturation 97.4 (0-100) 02/24/21 03:43 ABG O2 Content 12.0 (0.0-44) 02/23/21 04:00 POC ABG Base Excess -1.3 02/24/21 03:43 ABG Base Excess -1.2 mmol/L (-2.0-3.0) 02/23/21 04:00 ABG Hemoglobin 8.5 (12.0-17.5) L 02/24/21 03:43 ABG Oxyhemoglobin 87.0 (94-98) L 02/22/21 04:22 ABG Carboxyhemoglobin 1.8 % (0.0-5.0) 02/23/21 04:00 ABG Methemoglobin 0.7 % (0.0-1.5) 02/23/21 04:00 ABG Sodium 135.6 mmol/L (136.0-145.0) L 02/24/21 03:43 ABG Potassium 3.7 mmol/L (3.40-4.50) 02/24/21 03:43 ABG Chloride 100.0 mmol/L (98-107) 02/24/21 03:43 ABG Glucose 117 mg/dL (65-95) H 02/24/21 03:43 Oxyhemoglobin 95.4 % (95.0-99.0) 02/23/21 04:00 Carboxyhemoglobin 1.1 (0.5-1.5) 02/22/21 04:22 FiO2 70 % 02/23/21 04:00 FiO2 % 70 02/24/21 03:43 Sodium 138 mmol/L (137-145) 02/24/21 04:25 Potassium 3.7 mmol/L (3.6-5.0) 02/24/21 04:25 Chloride 98.0 mmol/L (98-107) 02/24/21 04:25 Carbon Dioxide 30 mmol/L (22-30) 02/24/21 04:25 Anion Gap 14 mmol/L 02/24/21 04:25 BUN 68 mg/dL (9-20) H 02/24/21 04:25 Creatinine 4.9 mg/dL (0.8-1.3) H 02/24/21 04:25 Estimated GFR 15 ml/min 02/24/21 04:25 BUN/Creatinine Ratio 14 % 02/24/21 04:25 Glucose 113 mg/dL (75-100) H 02/24/21 04:25 POC Glucose 112 mg/dL (70-105) H 02/24/21 11:12 Hemoglobin A1c 6.3 % (4-6) H 02/02/21 16:00 Lactic Acid 1.90 mmol/L (0.7-2.0) 01/24/21 14:38 Calcium 8.6 mg/dL (8.4-10.2) 02/24/21 04:25 Phosphorus 7.90 mg/dL (2.5-4.5) H 02/21/21 16:35 Magnesium 2.60 mg/dL (1.7-2.3) H 02/21/21 16:35 Ferritin 1116.0 ng/mL (30.0-300.0) H 02/24/21 04:25 Total Bilirubin 1.50 mg/dL (0.1-1.2) H 01/26/21 05:47 AST 37 units/L (5-40) 01/26/21 05:47 ALT 29 units/L (7-56) 01/26/21 05:47 Alkaline Phosphatase 70 units/L (35-129) 01/26/21 05:47 Lactate Dehydrogenase 345 units/L (91-180) H 02/19/21 05:45 C-Reactive Protein 7.20 mg/dL (0.00-1.30) H 02/24/21 04:25 Total Protein 7.2 g/dL (6.3-8.2) 01/26/21 05:47 Albumin 2.2 g/dL (3.9-5) L 01/26/21 05:47 Albumin/Globulin Ratio 0.4 % 01/26/21 05:47 Triglycerides 195 mg/dL (2-149) H 02/19/21 05:45 Procalcitonin 18.94 ng/mL (<0.15) 02/16/21 17:09 Arterial Blood Glucose 117 mg/dL (65-95) H 02/24/21 03:43 Arterial Blood Ionized Calcium 4.7 mg/dL (4.6-5.3) 02/24/21 03:43 Urine Color Nehal (Yellow) 01/22/21 22:39 Urine Turbidity Cloudy (Clear) 01/22/21 22:39 Urine pH 5.0 (5.0-7.0) 01/22/21 22:39 Ur Specific [place] 1.017 (1.003-1.030) 01/22/21 22:39 Urine Protein 100 mg/dl mg/dL (Negative) 01/22/21 22:39 Urine Glucose (UA) Neg mg/dL (Negative) 01/22/21 22:39 Urine Ketones Neg mg/dL (Negative) 01/22/21 22:39 Urine Blood Mod (Negative) 01/22/21 22:39 Urine Nitrite Neg (Negative) 01/22/21 22:39 Urine Bilirubin Neg (Negative) 01/22/21 22:39 Urine Urobilinogen 2.0 mg/dL (<2.0) 01/22/21 22:39 Ur Leukocyte Esterase Mod (Negative) 01/22/21 22:39 Urine WBC (Auto) < 1.0 /HPF (0.0-6.0) 01/22/21 22:39 Urine RBC (Auto) < 1.0 /HPF (0.0-6.0) 01/22/21 22:39 U Epithel Cells (Auto) < 1.0 /HPF (0-13.0) 01/22/21 22:39 Urine Osmolality 416 Mosm/kg 01/30/21 12:15 Urine Total Volume 2300 ml 01/30/21 12:00 Urine Creatinine 53.0 mg/dL (0.1-20.0) H 01/30/21 12:00 Ur Creatinine 24 Hour 1.2 (0.8-2.8) 01/30/21 12:00 Urine Sodium 28 mmol/L 01/22/21 22:39 Nasal Screen MRSA (PCR) Negative (Negative) 02/02/21 13:20 Random Vancomycin 13.7 ug/mL (0-40.0) 02/07/21 10:40 Coronavirus (PCR) Positive (Negative) A 02/18/21 10:00 Hepatitis A IgM Ab Non-reactive (NonReactive) 02/03/21 Unknown Hep Bs Antigen Non-reactive (Negative) 02/03/21 Unknown Hep B Core IgM Ab Non-reactive (NonReactive) 02/03/21 Unknown Hepatitis C Antibody Non-reactive (NonReactive) 02/03/21 Unknown Blood Type B POSITIVE 02/17/21 07:45 Antibody Screen Negative 02/17/21 07:45 Crossmatch See Detail 02/17/21 07:45 Black/IV: Voiding Method Incontinent Active Medications - Current Medications Current Medications: Generic Name Dose Route Start Last Admin Trade Name Freq PRN Reason Stop Dose Admin Acetaminophen 650 mg 01/24/21 12:58 02/15/21 18:06 Acetaminophen 325 Mg/10.15 Ml Oral Liqd Unit Dose FEEDTUBE 650 mg Q6H PRN Administration Pain, Mild (1-3) Lipase/Protease/Amylase 1 each 01/26/21 14:25 Lipase 10,500/Protease 25,000/Amylase 43,750 (Units) Dr Cap FEEDTUBE PRN PRN For Clogged Feeding Tube Dextrose 50 ml 01/27/21 07:24 Dextrose 50% In Water (25gm) 50 Ml Syringe IV Q30MIN PRN Hypoglycemia Protocol Fentanyl 50 mcg 01/22/21 22:39 02/10/21 13:46 Fentanyl 100 Mcg/2 Ml Inj IV 50 mcg Q10MIN PRN Administration ANALGESIA Heparin Sodium (Porcine) 2,000 unit 02/11/21 09:38 02/21/21 21:25 Heparin 10,000 Units/10 Ml Vial IV 2,000 unit SAGRARIO PRN Administration hemodialysis Heparin Sodium (Porcine) 5,000 unit 02/19/21 14:00 02/24/21 14:47 Heparin 5,000 Unit/1 Ml Vial SUB-Q 5,000 unit Q8HR CECE Administration Fentanyl Citrate 2,000 mcg in 100 mls @ 6.124 mls/hr 01/22/21 23:00 02/21/21 16:00 Fentanyl Drip Premix IV 0 mcg/kg/hr TITR CECE 0 mls/hr Titration Protocol 1 MCG/KG/HR Propofol 1,000 mg in 100 mls @ 3.674 mls/hr 01/22/21 23:45 02/21/21 08:30 Diprivan 10 Mg/Ml IV 0 mcg/kg/min TITR CECE 0 mls/hr Titration Protocol 5 MCG/KG/MIN Norepinephrine 4 mg in 250 mls @ 7.5 mls/hr 01/28/21 14:00 02/22/21 18:27 Levophed Drip 4 Mg/Ns 250 Ml IV 0 mcg/min TITR CECE 0 mls/hr Titration Protocol 2 MCG/MIN Dexmedetomidine HCl 1,000 mcg/ 260 mls @ 6.368 mls/hr 01/30/21 20:00 02/21/21 12:23 Sodium Chloride IV Infused TITRATE CECE Titration Protocol 0.2 MCG/KG/HR Sodium Chloride 100 mls @ 999 mls/hr 02/22/21 13:43 Nacl 0.9% IV SAGRARIO PRN Hypotension Lansoprazole 30 mg 02/18/21 10:00 02/24/21 10:26 Lansoprazole 30 Mg Solutab FEEDTUBE 30 mg QDAY CECE Administration Senna/Docusate Sodium 2 tab 02/17/21 11:00 02/24/21 14:48 Sennosides/Docusate Sodium 8.6/50 Mg Tab PO 2 tab TID CECE Administration Simple Syrup 15 ml 01/26/21 14:25 02/21/21 21:24 Simple Syrup 15 Ml FEEDTUBE 15 ml PRN PRN Administration Hypoglycemia Simple Syrup 30 ml 01/26/21 14:25 Simple Syrup 15 Ml FEEDTUBE PRN PRN Hypoglycemia Sodium Bicarbonate 325 mg 01/26/21 14:25 Sodium Bicarbonate 325 Mg Tab FEEDTUBE PRN PRN For Clogged Feeding Tube Nutrition/Malnutrition Assess - Dietary Evaluation Nutrition/Malnutrition Findings: Nutrition Notes Start: 01/26/21 13:59 Freq: Status: Active Protocol: Document 02/24/21 13:25 CW (Rec: 02/24/21 13:32 CW [id number]) Nutrition Notes Initial or Follow up Reassessment Current Diagnosis Acute Kidney Injury,Diabetes, Sepsis,Hypertension, Respiratory Failure, Hyperlipidemia Other Pertinent Diagnosis on HD, COVID-19 (+), bilat pneu Current Diet TF - Nepro at 36 ml/hr Labs/Tests BUN 68 Cr 4.9 Pertinent Medications reviewed Height 5 ft 8 in Weight 99.1 kg [place] Body Weight (kg) 70.00 BMI 33.2 Weight change and time frame wt change likely inaccurate Weight Status Morbidly Obese Subjective/Other Information F/U for TF tolerance. Pt has 1 event of TF intolerance last night at which TF was held and ran at 35 ml/hr. TF tolerated at 35 ml/hr and increase back up to goal this afternoon per RN. Percent of energy/protein needs met: 65%/30% Burn Absent Trauma Absent GI Symptoms Constipation Difficulty In Swallowing Skin Integrity/Comment pressure ulcer to lips Current % PO Negligible Minimum of two criteria No Fluid Accumulation Moderate to Severe (severe) #2 Nutrition Diagnosis Increased nutrient needs ( specify in comment below) Diagnosis Progress(for reassessment Continues documentation) #1 Nutrition Diagnosis Inadequate oral intake Diagnosis Progress(for reassessment Continues documentation) Is patient on ventilator? Yes Is Patient Ambulatory and/or Out of Bed No REE-([facility]-confined to bed) [phone] Kcal/Kg value to use for calculation 12 Approximate Energy Requirements Using 1189 kcal/Kg Calculation Used for Recommendations Kcal/kg Additional Notes Pro needs >1.2g/kg adjBW: > 115g/day for HD needs Fluid needs 500+ total output or per MD Nutrition Intervention Change Diet Order: Continue TF Nutrition Support: Nepro at 46 ml/hr with a free water flush of 200 ml q4h. Kcal 1,987 Protein (gm) 89 Fluid (mL) 803 Goal #1 TF tolerance Goal #2 TF to meet at least 75% energy and pro needs Anticipated Discharge Needs: unable to determine at this time Follow-Up By: 02/26/21 Additional Comments F/U for TF tolerance
[2021-02-25] MEDS: HEPARIN 5,000 UNIT/1 ML VIAL SUB-Q SCH ×4 (05:09→21:50)
[2021-02-25] MEDS: SENNOSIDES/DOCUSATE SODIUM 8.6/50 MG TAB PO SCH ×3 (07:27→21:50)
--- NOTE | 2021-02-25 08:24 | Progress Note ---
Assessment and Plan - Patient Problems (1) Acute respiratory failure due to COVID-19 Current Visit: Yes Status: Acute (2) Acute respiratory failure with hypoxia Current Visit: Yes Status: Acute (3) Pneumonia Current Visit: Yes Status: Acute Qualifiers: Pneumonia type: due to unspecified organism Laterality: bilateral Lung location: unspecified part of lung Qualified Code(s): J18.9 - Pneumonia, unspecified organism (4) Exposure to COVID-19 virus Current Visit: Yes Status: Acute (5) Encounter for hemodialysis for acute renal failure Current Visit: Yes Status: Acute Subjective Principal diagnosis: DEISI Interval history: on vent. Awake, appears more responsive and appropriate today Objective Vital Signs - 12hr 02/24/21 02/24/21 02/24/21 21:00 21:07 22:00 Temperature Pulse Rate 106 H 90 107 H Pulse Rate [ From Monitor] Respiratory 34 H 11 L Rate Blood Pressure 119/61 118/70 123/66 O2 Sat by Pulse 93 99 89 Oximetry 02/24/21 02/24/21 02/25/21 22:08 23:00 00:00 Temperature Pulse Rate 107 H 105 H 108 H Pulse Rate [ 100 H From Monitor] Respiratory 29 H 34 H 35 H Rate Blood Pressure 123/66 132/73 128/66 O2 Sat by Pulse 94 95 90 Oximetry 02/25/21 02/25/21 02/25/21 00:52 01:00 02:00 Temperature Pulse Rate 107 H 104 H 107 H Pulse Rate [ From Monitor] Respiratory 34 H 36 H Rate Blood Pressure 128/66 130/68 127/70 O2 Sat by Pulse 94 93 90 Oximetry 02/25/21 02/25/21 02/25/21 03:00 04:00 05:00 Temperature 98.5 F Pulse Rate 107 H 105 H 108 H Pulse Rate [ 100 H From Monitor] Respiratory 36 H 34 H 39 H Rate Blood Pressure 127/70 127/70 127/70 O2 Sat by Pulse 99 97 92 Oximetry 02/25/21 02/25/21 02/25/21 05:30 06:00 08:06 Temperature Pulse Rate 103 H 109 H 106 H Pulse Rate [ From Monitor] Respiratory 37 H Rate Blood Pressure 114/59 115/60 114/59 O2 Sat by Pulse 95 94 95 Oximetry Constitutional: comatose Eyes: non-icteric ENT: other (orally intubated, critically ill) Neck: supple Effort: mildly labored Ascultation: Bilateral: clear Percussion: Bilateral: not dull Cardiovascular: regular rate and rhythm (no mrg) Gastrointestinal: normoactive bowel sounds Integumentary: normal Extremities: no cyanosis, no edema, pink and warm Neurologic: unable to assess CBC and BMP: 02/24/21 04:25 02/24/21 04:25 ABG, PT/INR, D-dimer: ABG ABG pH 7.287 (7.320-7.450) L 02/25/21 03:42 POC ABG pCO2 58.2 mmHg (32.0-48.0) H 02/25/21 03:42 ABG pCO2 62.7 mm Hg 02/23/21 04:00 POC ABG pO2 83.5 mmHg (83-108) 02/25/21 03:42 ABG pO2 119.4 mm Hg (80.0-90.0) H 02/23/21 04:00 POC ABG HCO3 27.2 02/25/21 03:42 ABG O2 Saturation 95.4 (0-100) 02/25/21 03:42 PT/INR, D-dimer PT 14.9 Sec. (12.2-14.9) 02/11/21 08:27 INR 1.17 (0.87-1.13) H 02/11/21 08:27 D-Dimer 4695.21 ng/mlDDU (0-234) H 02/24/21 04:25 Abnormal lab findings: Abnormal Labs 01/22/21 01/22/21 01/22/21 22:39 22:57 22:57 WBC RBC Hgb Hct MCV MCH MCHC RDW Plt Count Lymph % (Auto) 6.6 L Lymph # (Auto) 0.5 L Seg Neutrophils % 87.6 H Seg Neuts % (Manual) Lymphocytes % (Manual) Monocytes % (Manual) Nucleated RBC % Seg Neutrophils # Seg Neutrophils # Man Lymphocytes # (Manual) Monocytes # (Manual) Eosinophils # (Manual) INR D-Dimer ABG pH POC ABG pCO2 POC ABG pO2 ABG pO2 ABG HCO3 ABG O2 Saturation ABG Base Excess ABG Hemoglobin ABG Oxyhemoglobin ABG Sodium ABG Potassium ABG Chloride ABG Glucose Oxyhemoglobin Carboxyhemoglobin Sodium 129 L Potassium 3.4 L Chloride 90.4 L Carbon Dioxide BUN 34 H Creatinine 1.5 H Glucose 146 H POC Glucose Hemoglobin A1c Lactic Acid Calcium 7.8 L Phosphorus Magnesium Ferritin Total Bilirubin AST 75 H ALT 57 H Lactate Dehydrogenase C-Reactive Protein Albumin 2.9 L Triglycerides Arterial Blood Glucose Arterial Blood Ionized Calcium Urine Creatinine 301.2 H Coronavirus (PCR) Crossmatch 01/22/21 01/22/21 01/22/21 22:57 22:57 22:57 WBC RBC Hgb Hct MCV MCH MCHC RDW Plt Count Lymph % (Auto) Lymph # (Auto) Seg Neutrophils % Seg Neuts % (Manual) Lymphocytes % (Manual) Monocytes % (Manual) Nucleated RBC % Seg Neutrophils # Seg Neutrophils # Man Lymphocytes # (Manual) Monocytes # (Manual) Eosinophils # (Manual) INR D-Dimer 1173.89 H ABG pH POC ABG pCO2 POC ABG pO2 ABG pO2 ABG HCO3 ABG O2 Saturation ABG Base Excess ABG Hemoglobin ABG Oxyhemoglobin ABG Sodium ABG Potassium ABG Chloride ABG Glucose Oxyhemoglobin Carboxyhemoglobin Sodium Potassium Chloride Carbon Dioxide BUN Creatinine Glucose 149 H POC Glucose Hemoglobin A1c Lactic Acid 2.10 H* Calcium Phosphorus Magnesium Ferritin Total Bilirubin AST ALT Lactate Dehydrogenase 685 H C-Reactive Protein 30.40 H Albumin Triglycerides Arterial Blood Glucose Arterial Blood Ionized Calcium Urine Creatinine Coronavirus (PCR) Crossmatch 01/22/21 01/23/21 01/23/21 22:57 08:41 10:01 WBC RBC Hgb Hct MCV MCH MCHC RDW Plt Count Lymph % (Auto) Lymph # (Auto) Seg Neutrophils % Seg Neuts % (Manual) Lymphocytes % (Manual) Monocytes % (Manual) Nucleated RBC % Seg Neutrophils # Seg Neutrophils # Man Lymphocytes # (Manual) Monocytes # (Manual) Eosinophils # (Manual) INR D-Dimer ABG pH POC ABG pCO2 POC ABG pO2 ABG pO2 ABG HCO3 ABG O2 Saturation ABG Base Excess ABG Hemoglobin ABG Oxyhemoglobin ABG Sodium ABG Potassium ABG Chloride ABG Glucose Oxyhemoglobin Carboxyhemoglobin Sodium 131 L Potassium Chloride 88.7 L Carbon Dioxide 18 L BUN 36 H Creatinine 1.6 H Glucose 147 H POC Glucose Hemoglobin A1c Lactic Acid Calcium 7.5 L Phosphorus Magnesium Ferritin 1207.0 H Total Bilirubin AST ALT Lactate Dehydrogenase C-Reactive Protein Albumin Triglycerides Arterial Blood Glucose Arterial Blood Ionized Calcium Urine Creatinine Coronavirus (PCR) Positive A Crossmatch 01/23/21 01/23/21 01/24/21 20:49 Unknown 00:10 WBC RBC Hgb Hct MCV MCH MCHC RDW Plt Count Lymph % (Auto) Lymph # (Auto) Seg Neutrophils % Seg Neuts % (Manual) Lymphocytes % (Manual) Monocytes % (Manual) Nucleated RBC % Seg Neutrophils # Seg Neutrophils # Man Lymphocytes # (Manual) Monocytes # (Manual) Eosinophils # (Manual) INR D-Dimer ABG pH POC ABG pCO2 POC ABG pO2 ABG pO2 165.4 H ABG HCO3 ABG O2 Saturation ABG Base Excess -2.5 L ABG Hemoglobin ABG Oxyhemoglobin ABG Sodium ABG Potassium ABG Chloride ABG Glucose Oxyhemoglobin Carboxyhemoglobin Sodium 130 L Potassium Chloride 91.0 L Carbon Dioxide 20 L BUN 52 H Creatinine 3.8 H D Glucose 150 H POC Glucose 125 H Hemoglobin A1c Lactic Acid Calcium 8.0 L Phosphorus Magnesium Ferritin Total Bilirubin AST 42 H ALT Lactate Dehydrogenase C-Reactive Protein Albumin 2.4 L Triglycerides Arterial Blood Glucose Arterial Blood Ionized Calcium Urine Creatinine Coronavirus (PCR) Crossmatch 01/24/21 01/24/21 01/24/21 05:05 05:05 05:05 WBC 14.0 H RBC Hgb Hct MCV 95 H MCH 33 H MCHC RDW Plt Count Lymph % (Auto) Lymph # (Auto) Seg Neutrophils % Seg Neuts % (Manual) 91.0 H Lymphocytes % (Manual) 4.0 L Monocytes % (Manual) Nucleated RBC % Seg Neutrophils # Seg Neutrophils # Man 12.7 H Lymphocytes # (Manual) 0.6 L Monocytes # (Manual) Eosinophils # (Manual) INR D-Dimer 6159.48 H ABG pH POC ABG pCO2 POC ABG pO2 ABG pO2 ABG HCO3 ABG O2 Saturation ABG Base Excess ABG Hemoglobin ABG Oxyhemoglobin ABG Sodium ABG Potassium ABG Chloride ABG Glucose Oxyhemoglobin Carboxyhemoglobin Sodium Potassium Chloride Carbon Dioxide BUN Creatinine Glucose POC Glucose Hemoglobin A1c Lactic Acid Calcium Phosphorus Magnesium Ferritin 1178.0 H Total Bilirubin AST ALT Lactate Dehydrogenase C-Reactive Protein Albumin Triglycerides Arterial Blood Glucose Arterial Blood Ionized Calcium Urine Creatinine Coronavirus (PCR) Crossmatch 01/24/21 01/24/21 01/24/21 05:05 05:05 05:05 WBC RBC Hgb Hct MCV MCH MCHC RDW Plt Count Lymph % (Auto) Lymph # (Auto) Seg Neutrophils % Seg Neuts % (Manual) Lymphocytes % (Manual) Monocytes % (Manual) Nucleated RBC % Seg Neutrophils # Seg Neutrophils # Man Lymphocytes # (Manual) Monocytes # (Manual) Eosinophils # (Manual) INR D-Dimer ABG pH POC ABG pCO2 POC ABG pO2 ABG pO2 ABG HCO3 ABG O2 Saturation ABG Base Excess ABG Hemoglobin ABG Oxyhemoglobin ABG Sodium ABG Potassium ABG Chloride ABG Glucose Oxyhemoglobin Carboxyhemoglobin Sodium 132 L Potassium Chloride 93.1 L Carbon Dioxide 21 L BUN 57 H Creatinine 3.7 H Glucose 133 H POC Glucose Hemoglobin A1c Lactic Acid 2.20 H* Calcium 7.7 L Phosphorus Magnesium Ferritin Total Bilirubin AST ALT Lactate Dehydrogenase 658 H C-Reactive Protein 33.20 H Albumin 2.4 L Triglycerides Arterial Blood Glucose Arterial Blood Ionized Calcium Urine Creatinine Coronavirus (PCR) Crossmatch 01/24/21 01/24/21 01/24/21 05:34 06:00 17:35 WBC RBC Hgb Hct MCV MCH MCHC RDW Plt Count Lymph % (Auto) Lymph # (Auto) Seg Neutrophils % Seg Neuts % (Manual) Lymphocytes % (Manual) Monocytes % (Manual) Nucleated RBC % Seg Neutrophils # Seg Neutrophils # Man Lymphocytes # (Manual) Monocytes # (Manual) Eosinophils # (Manual) INR D-Dimer ABG pH POC ABG pCO2 POC ABG pO2 ABG pO2 ABG HCO3 ABG O2 Saturation ABG Base Excess ABG Hemoglobin ABG Oxyhemoglobin ABG Sodium ABG Potassium ABG Chloride ABG Glucose Oxyhemoglobin Carboxyhemoglobin Sodium Potassium Chloride Carbon Dioxide BUN Creatinine Glucose POC Glucose 136 H 137 H Hemoglobin A1c Lactic Acid Calcium Phosphorus Magnesium 2.80 H Ferritin Total Bilirubin AST ALT Lactate Dehydrogenase C-Reactive Protein Albumin Triglycerides Arterial Blood Glucose Arterial Blood Ionized Calcium Urine Creatinine Coronavirus (PCR) Crossmatch 01/25/21 01/25/21 01/25/21 04:15 05:40 05:40 WBC RBC Hgb Hct MCV 95 H MCH 33 H MCHC 35 H RDW Plt Count Lymph % (Auto) Lymph # (Auto) Seg Neutrophils % Seg Neuts % (Manual) 95.0 H Lymphocytes % (Manual) 3.0 L Monocytes % (Manual) Nucleated RBC % Seg Neutrophils # Seg Neutrophils # Man 7.8 H Lymphocytes # (Manual) 0.2 L Monocytes # (Manual) Eosinophils # (Manual) INR D-Dimer ABG pH POC ABG pCO2 POC ABG pO2 63.2 L ABG pO2 ABG HCO3 ABG O2 Saturation ABG Base Excess ABG Hemoglobin ABG Oxyhemoglobin 89.6 L ABG Sodium ABG Potassium ABG Chloride ABG Glucose 165 H Oxyhemoglobin Carboxyhemoglobin 0.3 L Sodium Potassium Chloride Carbon Dioxide BUN 67 H Creatinine 3.4 H Glucose 153 H POC Glucose Hemoglobin A1c Lactic Acid Calcium 7.5 L Phosphorus Magnesium Ferritin Total Bilirubin 1.40 H AST 62 H ALT Lactate Dehydrogenase C-Reactive Protein Albumin 2.6 L Triglycerides Arterial Blood Glucose 165 H Arterial Blood Ionized Calcium 4.3 L Urine Creatinine Coronavirus (PCR) Crossmatch 01/25/21 01/25/21 01/25/21 05:59 12:00 17:17 WBC RBC Hgb Hct MCV MCH MCHC RDW Plt Count Lymph % (Auto) Lymph # (Auto) Seg Neutrophils % Seg Neuts % (Manual) Lymphocytes % (Manual) Monocytes % (Manual) Nucleated RBC % Seg Neutrophils # Seg Neutrophils # Man Lymphocytes # (Manual) Monocytes # (Manual) Eosinophils # (Manual) INR D-Dimer ABG pH POC ABG pCO2 POC ABG pO2 ABG pO2 ABG HCO3 ABG O2 Saturation ABG Base Excess ABG Hemoglobin ABG Oxyhemoglobin ABG Sodium ABG Potassium ABG Chloride ABG Glucose Oxyhemoglobin Carboxyhemoglobin Sodium Potassium Chloride Carbon Dioxide BUN Creatinine Glucose POC Glucose 140 H 143 H 149 H Hemoglobin A1c Lactic Acid Calcium Phosphorus Magnesium Ferritin Total Bilirubin AST ALT Lactate Dehydrogenase C-Reactive Protein Albumin Triglycerides Arterial Blood Glucose Arterial Blood Ionized Calcium Urine Creatinine Coronavirus (PCR) Crossmatch 01/25/21 01/26/21 01/26/21 23:41 03:43 05:46 WBC RBC Hgb Hct MCV MCH MCHC RDW Plt Count Lymph % (Auto) Lymph # (Auto) Seg Neutrophils % Seg Neuts % (Manual) Lymphocytes % (Manual) Monocytes % (Manual) Nucleated RBC % Seg Neutrophils # Seg Neutrophils # Man Lymphocytes # (Manual) Monocytes # (Manual) Eosinophils # (Manual) INR D-Dimer ABG pH POC ABG pCO2 POC ABG pO2 70.0 L ABG pO2 ABG HCO3 ABG O2 Saturation ABG Base Excess ABG Hemoglobin ABG Oxyhemoglobin 91.9 L ABG Sodium ABG Potassium ABG Chloride 109.0 H ABG Glucose 165 H Oxyhemoglobin Carboxyhemoglobin Sodium Potassium Chloride Carbon Dioxide BUN Creatinine Glucose POC Glucose 132 H 161 H Hemoglobin A1c Lactic Acid Calcium Phosphorus Magnesium Ferritin Total Bilirubin AST ALT Lactate Dehydrogenase C-Reactive Protein Albumin Triglycerides Arterial Blood Glucose 165 H Arterial Blood Ionized Calcium 4.5 L Urine Creatinine Coronavirus (PCR) Crossmatch 01/26/21 01/26/21 01/26/21 05:47 05:47 05:47 WBC RBC Hgb Hct 35.3 L MCV 96 H MCH 33 H MCHC RDW Plt Count Lymph % (Auto) Lymph # (Auto) Seg Neutrophils % Seg Neuts % (Manual) 96.0 H Lymphocytes % (Manual) 2.0 L Monocytes % (Manual) Nucleated RBC % Seg Neutrophils # Seg Neutrophils # Man Lymphocytes # (Manual) 0.1 L Monocytes # (Manual) Eosinophils # (Manual) INR D-Dimer > 46381 H ABG pH POC ABG pCO2 POC ABG pO2 ABG pO2 ABG HCO3 ABG O2 Saturation ABG Base Excess ABG Hemoglobin ABG Oxyhemoglobin ABG Sodium ABG Potassium ABG Chloride ABG Glucose Oxyhemoglobin Carboxyhemoglobin Sodium Potassium Chloride Carbon Dioxide BUN 57 H Creatinine 2.2 H Glucose 185 H POC Glucose Hemoglobin A1c Lactic Acid Calcium 8.1 L Phosphorus Magnesium Ferritin Total Bilirubin AST ALT Lactate Dehydrogenase C-Reactive Protein Albumin Triglycerides Arterial Blood Glucose Arterial Blood Ionized Calcium Urine Creatinine Coronavirus (PCR) Crossmatch 01/26/21 01/26/21 01/26/21 05:47 05:47 05:47 WBC RBC Hgb Hct MCV MCH MCHC RDW Plt Count Lymph % (Auto) Lymph # (Auto) Seg Neutrophils % Seg Neuts % (Manual) Lymphocytes % (Manual) Monocytes % (Manual) Nucleated RBC % Seg Neutrophils # Seg Neutrophils # Man Lymphocytes # (Manual) Monocytes # (Manual) Eosinophils # (Manual) INR D-Dimer ABG pH POC ABG pCO2 POC ABG pO2 ABG pO2 ABG HCO3 ABG O2 Saturation ABG Base Excess ABG Hemoglobin ABG Oxyhemoglobin ABG Sodium ABG Potassium ABG Chloride ABG Glucose Oxyhemoglobin Carboxyhemoglobin Sodium Potassium Chloride 107.1 H Carbon Dioxide BUN 56 H Creatinine 2.2 H Glucose 188 H POC Glucose Hemoglobin A1c Lactic Acid Calcium 8.0 L Phosphorus Magnesium Ferritin 1178.0 H Total Bilirubin 1.50 H AST ALT Lactate Dehydrogenase 588 H C-Reactive Protein 40.10 H Albumin 2.2 L Triglycerides Arterial Blood Glucose Arterial Blood Ionized Calcium Urine Creatinine Coronavirus (PCR) Crossmatch 01/26/21 01/26/21 01/26/21 11:34 18:17 23:20 WBC RBC Hgb Hct MCV MCH MCHC RDW Plt Count Lymph % (Auto) Lymph # (Auto) Seg Neutrophils % Seg Neuts % (Manual) Lymphocytes % (Manual) Monocytes % (Manual) Nucleated RBC % Seg Neutrophils # Seg Neutrophils # Man Lymphocytes # (Manual) Monocytes # (Manual) Eosinophils # (Manual) INR D-Dimer ABG pH POC ABG pCO2 POC ABG pO2 ABG pO2 ABG HCO3 ABG O2 Saturation ABG Base Excess ABG Hemoglobin ABG Oxyhemoglobin ABG Sodium ABG Potassium ABG Chloride ABG Glucose Oxyhemoglobin Carboxyhemoglobin Sodium Potassium Chloride Carbon Dioxide BUN Creatinine Glucose POC Glucose 129 H 205 H 155 H Hemoglobin A1c Lactic Acid Calcium Phosphorus Magnesium Ferritin Total Bilirubin AST ALT Lactate Dehydrogenase C-Reactive Protein Albumin Triglycerides Arterial Blood Glucose Arterial Blood Ionized Calcium Urine Creatinine Coronavirus (PCR) Crossmatch 01/27/21 01/27/21 01/27/21 02:45 05:29 05:29 WBC RBC 3.58 L Hgb 11.7 L Hct 34.9 L MCV 97 H MCH 33 H MCHC RDW Plt Count Lymph % (Auto) Lymph # (Auto) Seg Neutrophils % Seg Neuts % (Manual) 88.0 H Lymphocytes % (Manual) 7.0 L Monocytes % (Manual) Nucleated RBC % Seg Neutrophils # Seg Neutrophils # Man Lymphocytes # (Manual) 0.5 L Monocytes # (Manual) Eosinophils # (Manual) INR D-Dimer ABG pH 7.319 L POC ABG pCO2 50.7 H POC ABG pO2 63.0 L ABG pO2 ABG HCO3 ABG O2 Saturation ABG Base Excess ABG Hemoglobin ABG Oxyhemoglobin ABG Sodium 145.2 H ABG Potassium 5.1 H ABG Chloride 114.0 H ABG Glucose 178 H Oxyhemoglobin Carboxyhemoglobin Sodium Potassium Chloride Carbon Dioxide BUN Creatinine Glucose POC Glucose Hemoglobin A1c Lactic Acid Calcium Phosphorus Magnesium 4.00 H Ferritin Total Bilirubin AST ALT Lactate Dehydrogenase C-Reactive Protein Albumin Triglycerides Arterial Blood Glucose 178 H Arterial Blood Ionized Calcium Urine Creatinine Coronavirus (PCR) Crossmatch 01/27/21 01/27/21 01/27/21 05:29 05:29 05:31 WBC RBC Hgb Hct MCV MCH MCHC RDW Plt Count Lymph % (Auto) Lymph # (Auto) Seg Neutrophils % Seg Neuts % (Manual) Lymphocytes % (Manual) Monocytes % (Manual) Nucleated RBC % Seg Neutrophils # Seg Neutrophils # Man Lymphocytes # (Manual) Monocytes # (Manual) Eosinophils # (Manual) INR D-Dimer ABG pH POC ABG pCO2 POC ABG pO2 ABG pO2 ABG HCO3 ABG O2 Saturation ABG Base Excess ABG Hemoglobin ABG Oxyhemoglobin ABG Sodium ABG Potassium ABG Chloride ABG Glucose Oxyhemoglobin Carboxyhemoglobin Sodium Potassium 5.2 H Chloride 109.6 H Carbon Dioxide BUN 67 H Creatinine 2.8 H Glucose 195 H POC Glucose 176 H Hemoglobin A1c Lactic Acid Calcium 7.9 L Phosphorus Magnesium Ferritin Total Bilirubin AST ALT Lactate Dehydrogenase C-Reactive Protein Albumin Triglycerides 160 H Arterial Blood Glucose Arterial Blood Ionized Calcium Urine Creatinine Coronavirus (PCR) Crossmatch 01/27/21 01/27/21 01/27/21 11:27 18:08 23:30 WBC RBC Hgb Hct MCV MCH MCHC RDW Plt Count Lymph % (Auto) Lymph # (Auto) Seg Neutrophils % Seg Neuts % (Manual) Lymphocytes % (Manual) Monocytes % (Manual) Nucleated RBC % Seg Neutrophils # Seg Neutrophils # Man Lymphocytes # (Manual) Monocytes # (Manual) Eosinophils # (Manual) INR D-Dimer ABG pH POC ABG pCO2 POC ABG pO2 ABG pO2 ABG HCO3 ABG O2 Saturation ABG Base Excess ABG Hemoglobin ABG Oxyhemoglobin ABG Sodium ABG Potassium ABG Chloride ABG Glucose Oxyhemoglobin Carboxyhemoglobin Sodium Potassium Chloride Carbon Dioxide BUN Creatinine Glucose POC Glucose 189 H 212 H 175 H Hemoglobin A1c Lactic Acid Calcium Phosphorus Magnesium Ferritin Total Bilirubin AST ALT Lactate Dehydrogenase C-Reactive Protein Albumin Triglycerides Arterial Blood Glucose Arterial Blood Ionized Calcium Urine Creatinine Coronavirus (PCR) Crossmatch 01/28/21 01/28/21 01/28/21 03:58 04:00 04:00 WBC RBC Hgb Hct MCV MCH MCHC RDW Plt Count Lymph % (Auto) Lymph # (Auto) Seg Neutrophils % Seg Neuts % (Manual) Lymphocytes % (Manual) Monocytes % (Manual) Nucleated RBC % Seg Neutrophils # Seg Neutrophils # Man Lymphocytes # (Manual) Monocytes # (Manual) Eosinophils # (Manual) INR D-Dimer > 84392 H ABG pH POC ABG pCO2 POC ABG pO2 52.9 L ABG pO2 ABG HCO3 ABG O2 Saturation ABG Base Excess ABG Hemoglobin ABG Oxyhemoglobin 84.1 L ABG Sodium 148.9 H ABG Potassium ABG Chloride 117.0 H ABG Glucose 194 H Oxyhemoglobin Carboxyhemoglobin Sodium Potassium Chloride Carbon Dioxide BUN Creatinine Glucose POC Glucose Hemoglobin A1c Lactic Acid Calcium Phosphorus Magnesium Ferritin Total Bilirubin AST ALT Lactate Dehydrogenase 679 H C-Reactive Protein 17.10 H Albumin Triglycerides Arterial Blood Glucose 194 H Arterial Blood Ionized Calcium Urine Creatinine Coronavirus (PCR) Crossmatch 01/28/21 01/28/21 01/28/21 04:00 05:00 06:00 WBC RBC 3.59 L Hgb 11.6 L Hct 34.8 L MCV 97 H MCH MCHC RDW Plt Count Lymph % (Auto) Lymph # (Auto) Seg Neutrophils % Seg Neuts % (Manual) 96.0 H Lymphocytes % (Manual) 3.0 L Monocytes % (Manual) Nucleated RBC % Seg Neutrophils # Seg Neutrophils # Man Lymphocytes # (Manual) 0.2 L Monocytes # (Manual) Eosinophils # (Manual) INR D-Dimer ABG pH POC ABG pCO2 POC ABG pO2 ABG pO2 ABG HCO3 ABG O2 Saturation ABG Base Excess ABG Hemoglobin ABG Oxyhemoglobin ABG Sodium ABG Potassium ABG Chloride ABG Glucose Oxyhemoglobin Carboxyhemoglobin Sodium Potassium Chloride Carbon Dioxide BUN Creatinine Glucose POC Glucose 159 H Hemoglobin A1c Lactic Acid Calcium Phosphorus Magnesium Ferritin 798.0 H Total Bilirubin AST ALT Lactate Dehydrogenase C-Reactive Protein Albumin Triglycerides Arterial Blood Glucose Arterial Blood Ionized Calcium Urine Creatinine Coronavirus (PCR) Crossmatch 01/28/21 01/28/21 01/28/21 06:00 06:00 08:12 WBC RBC Hgb Hct MCV MCH MCHC RDW Plt Count Lymph % (Auto) Lymph # (Auto) Seg Neutrophils % Seg Neuts % (Manual) Lymphocytes % (Manual) Monocytes % (Manual) Nucleated RBC % Seg Neutrophils # Seg Neutrophils # Man Lymphocytes # (Manual) Monocytes # (Manual) Eosinophils # (Manual) INR D-Dimer ABG pH POC ABG pCO2 POC ABG pO2 ABG pO2 ABG HCO3 ABG O2 Saturation ABG Base Excess ABG Hemoglobin ABG Oxyhemoglobin ABG Sodium ABG Potassium ABG Chloride ABG Glucose Oxyhemoglobin Carboxyhemoglobin Sodium Potassium Chloride 111.9 H Carbon Dioxide BUN 59 H Creatinine 2.2 H Glucose 189 H POC Glucose 181 H Hemoglobin A1c Lactic Acid Calcium 8.1 L Phosphorus Magnesium 3.20 H Ferritin Total Bilirubin AST ALT Lactate Dehydrogenase C-Reactive Protein Albumin Triglycerides Arterial Blood Glucose Arterial Blood Ionized Calcium Urine Creatinine Coronavirus (PCR) Crossmatch 01/28/21 01/28/21 01/28/21 12:03 16:43 23:51 WBC RBC Hgb Hct MCV MCH MCHC RDW Plt Count Lymph % (Auto) Lymph # (Auto) Seg Neutrophils % Seg Neuts % (Manual) Lymphocytes % (Manual) Monocytes % (Manual) Nucleated RBC % Seg Neutrophils # Seg Neutrophils # Man Lymphocytes # (Manual) Monocytes # (Manual) Eosinophils # (Manual) INR D-Dimer ABG pH POC ABG pCO2 POC ABG pO2 ABG pO2 ABG HCO3 ABG O2 Saturation ABG Base Excess ABG Hemoglobin ABG Oxyhemoglobin ABG Sodium ABG Potassium ABG Chloride ABG Glucose Oxyhemoglobin Carboxyhemoglobin Sodium Potassium Chloride Carbon Dioxide BUN Creatinine Glucose POC Glucose 164 H 198 H 196 H Hemoglobin A1c Lactic Acid Calcium Phosphorus Magnesium Ferritin Total Bilirubin AST ALT Lactate Dehydrogenase C-Reactive Protein Albumin Triglycerides Arterial Blood Glucose Arterial Blood Ionized Calcium Urine Creatinine Coronavirus (PCR) Crossmatch 01/29/21 01/29/21 01/29/21 05:00 05:23 06:00 WBC RBC Hgb Hct MCV MCH MCHC RDW Plt Count Lymph % (Auto) Lymph # (Auto) Seg Neutrophils % Seg Neuts % (Manual) Lymphocytes % (Manual) Monocytes % (Manual) Nucleated RBC % Seg Neutrophils # Seg Neutrophils # Man Lymphocytes # (Manual) Monocytes # (Manual) Eosinophils # (Manual) INR D-Dimer ABG pH 7.119 L POC ABG pCO2 87.1 H POC ABG pO2 ABG pO2 ABG HCO3 ABG O2 Saturation ABG Base Excess ABG Hemoglobin ABG Oxyhemoglobin ABG Sodium 152.5 H ABG Potassium 5.7 H ABG Chloride 120.0 H ABG Glucose 217 H Oxyhemoglobin Carboxyhemoglobin Sodium 151 H Potassium 5.9 H D Chloride 117.8 H Carbon Dioxide BUN 54 H Creatinine 2.2 H Glucose 208 H POC Glucose 180 H Hemoglobin A1c Lactic Acid Calcium 7.9 L Phosphorus Magnesium Ferritin Total Bilirubin AST ALT Lactate Dehydrogenase C-Reactive Protein Albumin Triglycerides Arterial Blood Glucose 217 H Arterial Blood Ionized Calcium Urine Creatinine Coronavirus (PCR) Crossmatch 01/29/21 01/29/21 01/29/21 12:29 17:28 18:05 WBC RBC Hgb Hct MCV MCH MCHC RDW Plt Count Lymph % (Auto) Lymph # (Auto) Seg Neutrophils % Seg Neuts % (Manual) Lymphocytes % (Manual) Monocytes % (Manual) Nucleated RBC % Seg Neutrophils # Seg Neutrophils # Man Lymphocytes # (Manual) Monocytes # (Manual) Eosinophils # (Manual) INR D-Dimer ABG pH POC ABG pCO2 POC ABG pO2 ABG pO2 ABG HCO3 ABG O2 Saturation ABG Base Excess ABG Hemoglobin ABG Oxyhemoglobin ABG Sodium ABG Potassium ABG Chloride ABG Glucose Oxyhemoglobin Carboxyhemoglobin Sodium 151 H Potassium 5.5 H Chloride 118.2 H Carbon Dioxide BUN 52 H Creatinine 2.2 H Glucose 224 H POC Glucose 181 H 203 H Hemoglobin A1c Lactic Acid Calcium 8.0 L Phosphorus Magnesium Ferritin Total Bilirubin AST ALT Lactate Dehydrogenase C-Reactive Protein Albumin Triglycerides Arterial Blood Glucose Arterial Blood Ionized Calcium Urine Creatinine Coronavirus (PCR) Crossmatch 01/29/21 01/29/21 01/29/21 18:13 23:34 Unknown WBC RBC Hgb Hct MCV 101 H MCH MCHC RDW 15.7 H Plt Count Lymph % (Auto) Lymph # (Auto) Seg Neutrophils % Seg Neuts % (Manual) 95.0 H Lymphocytes % (Manual) 3.0 L Monocytes % (Manual) Nucleated RBC % Seg Neutrophils # Seg Neutrophils # Man 8.0 H Lymphocytes # (Manual) 0.3 L Monocytes # (Manual) Eosinophils # (Manual) INR D-Dimer ABG pH 7.223 L POC ABG pCO2 64.8 H POC ABG pO2 63.6 L ABG pO2 ABG HCO3 ABG O2 Saturation ABG Base Excess ABG Hemoglobin ABG Oxyhemoglobin 89.4 L ABG Sodium 152.9 H ABG Potassium 5.3 H ABG Chloride 121.0 H ABG Glucose 227 H Oxyhemoglobin Carboxyhemoglobin Sodium Potassium Chloride Carbon Dioxide BUN Creatinine Glucose POC Glucose 198 H Hemoglobin A1c Lactic Acid Calcium Phosphorus Magnesium Ferritin Total Bilirubin AST ALT Lactate Dehydrogenase C-Reactive Protein Albumin Triglycerides Arterial Blood Glucose 227 H Arterial Blood Ionized Calcium Urine Creatinine Coronavirus (PCR) Crossmatch 01/30/21 01/30/21 01/30/21 04:00 04:00 04:00 WBC RBC Hgb Hct MCV MCH MCHC RDW Plt Count Lymph % (Auto) Lymph # (Auto) Seg Neutrophils % Seg Neuts % (Manual) Lymphocytes % (Manual) Monocytes % (Manual) Nucleated RBC % Seg Neutrophils # Seg Neutrophils # Man Lymphocytes # (Manual) Monocytes # (Manual) Eosinophils # (Manual) INR D-Dimer > 91622 H ABG pH POC ABG pCO2 POC ABG pO2 ABG pO2 ABG HCO3 ABG O2 Saturation ABG Base Excess ABG Hemoglobin ABG Oxyhemoglobin ABG Sodium ABG Potassium ABG Chloride ABG Glucose Oxyhemoglobin Carboxyhemoglobin Sodium Potassium Chloride Carbon Dioxide BUN Creatinine Glucose 234 H POC Glucose Hemoglobin A1c Lactic Acid Calcium Phosphorus Magnesium Ferritin 763.9 H Total Bilirubin AST ALT Lactate Dehydrogenase 424 H C-Reactive Protein 23.90 H Albumin Triglycerides Arterial Blood Glucose Arterial Blood Ionized Calcium Urine Creatinine Coronavirus (PCR) Crossmatch 01/30/21 01/30/21 01/30/21 04:24 05:00 05:16 WBC RBC 3.57 L Hgb 11.3 L Hct 35.4 L MCV 99 H MCH MCHC RDW 15.6 H Plt Count Lymph % (Auto) Lymph # (Auto) Seg Neutrophils % Seg Neuts % (Manual) 97.0 H Lymphocytes % (Manual) 1.0 L Monocytes % (Manual) Nucleated RBC % Seg Neutrophils # Seg Neutrophils # Man 8.6 H Lymphocytes # (Manual) 0.1 L Monocytes # (Manual) Eosinophils # (Manual) INR D-Dimer ABG pH 7.235 L POC ABG pCO2 69.7 H POC ABG pO2 61.0 L ABG pO2 ABG HCO3 ABG O2 Saturation ABG Base Excess ABG Hemoglobin ABG Oxyhemoglobin 89 L ABG Sodium 154.2 H ABG Potassium 5.4 H ABG Chloride 121.0 H ABG Glucose 247 H Oxyhemoglobin Carboxyhemoglobin Sodium Potassium Chloride Carbon Dioxide BUN Creatinine Glucose POC Glucose 238 H Hemoglobin A1c Lactic Acid Calcium Phosphorus Magnesium Ferritin Total Bilirubin AST ALT Lactate Dehydrogenase C-Reactive Protein Albumin Triglycerides Arterial Blood Glucose 247 H Arterial Blood Ionized Calcium Urine Creatinine Coronavirus (PCR) Crossmatch 01/30/21 01/30/21 01/30/21 06:00 11:28 12:00 WBC RBC Hgb Hct MCV MCH MCHC RDW Plt Count Lymph % (Auto) Lymph # (Auto) Seg Neutrophils % Seg Neuts % (Manual) Lymphocytes % (Manual) Monocytes % (Manual) Nucleated RBC % Seg Neutrophils # Seg Neutrophils # Man Lymphocytes # (Manual) Monocytes # (Manual) Eosinophils # (Manual) INR D-Dimer ABG pH POC ABG pCO2 POC ABG pO2 ABG pO2 ABG HCO3 ABG O2 Saturation ABG Base Excess ABG Hemoglobin ABG Oxyhemoglobin ABG Sodium ABG Potassium ABG Chloride ABG Glucose Oxyhemoglobin Carboxyhemoglobin Sodium 152 H Potassium 5.3 H Chloride 120.5 H Carbon Dioxide BUN 50 H Creatinine 2.3 H Glucose 239 H POC Glucose 153 H Hemoglobin A1c Lactic Acid Calcium 8.2 L Phosphorus Magnesium 2.60 H Ferritin Total Bilirubin AST ALT Lactate Dehydrogenase C-Reactive Protein Albumin Triglycerides 293 H Arterial Blood Glucose Arterial Blood Ionized Calcium Urine Creatinine 53.0 H Coronavirus (PCR) Crossmatch 01/30/21 01/30/21 01/31/21 18:49 23:06 04:00 WBC RBC Hgb Hct MCV MCH MCHC RDW Plt Count Lymph % (Auto) Lymph # (Auto) Seg Neutrophils % Seg Neuts % (Manual) Lymphocytes % (Manual) Monocytes % (Manual) Nucleated RBC % Seg Neutrophils # Seg Neutrophils # Man Lymphocytes # (Manual) Monocytes # (Manual) Eosinophils # (Manual) INR D-Dimer ABG pH POC ABG pCO2 POC ABG pO2 ABG pO2 ABG HCO3 ABG O2 Saturation ABG Base Excess ABG Hemoglobin ABG Oxyhemoglobin ABG Sodium ABG Potassium ABG Chloride ABG Glucose Oxyhemoglobin Carboxyhemoglobin Sodium 156 H Potassium 5.9 H Chloride 122.6 H Carbon Dioxide BUN 61 H Creatinine 3.2 H Glucose 205 H POC Glucose 220 H 192 H Hemoglobin A1c Lactic Acid Calcium 8.0 L Phosphorus Magnesium Ferritin Total Bilirubin AST ALT Lactate Dehydrogenase C-Reactive Protein Albumin Triglycerides Arterial Blood Glucose Arterial Blood Ionized Calcium Urine Creatinine Coronavirus (PCR) Crossmatch 01/31/21 01/31/21 01/31/21 04:40 05:17 11:33 WBC RBC Hgb Hct MCV MCH MCHC RDW Plt Count Lymph % (Auto) Lymph # (Auto) Seg Neutrophils % Seg Neuts % (Manual) Lymphocytes % (Manual) Monocytes % (Manual) Nucleated RBC % Seg Neutrophils # Seg Neutrophils # Man Lymphocytes # (Manual) Monocytes # (Manual) Eosinophils # (Manual) INR D-Dimer ABG pH 7.161 L* POC ABG pCO2 POC ABG pO2 ABG pO2 142.2 H ABG HCO3 28.3 H ABG O2 Saturation ABG Base Excess -3.2 L ABG Hemoglobin ABG Oxyhemoglobin ABG Sodium ABG Potassium ABG Chloride ABG Glucose Oxyhemoglobin Carboxyhemoglobin Sodium Potassium Chloride Carbon Dioxide BUN Creatinine Glucose POC Glucose 200 H 167 H Hemoglobin A1c Lactic Acid Calcium Phosphorus Magnesium Ferritin Total Bilirubin AST ALT Lactate Dehydrogenase C-Reactive Protein Albumin Triglycerides Arterial Blood Glucose Arterial Blood Ionized Calcium Urine Creatinine Coronavirus (PCR) Crossmatch 01/31/21 01/31/21 01/31/21 14:00 17:10 23:24 WBC RBC Hgb Hct MCV MCH MCHC RDW Plt Count Lymph % (Auto) Lymph # (Auto) Seg Neutrophils % Seg Neuts % (Manual) Lymphocytes % (Manual) Monocytes % (Manual) Nucleated RBC % Seg Neutrophils # Seg Neutrophils # Man Lymphocytes # (Manual) Monocytes # (Manual) Eosinophils # (Manual) INR D-Dimer ABG pH 7.205 L POC ABG pCO2 POC ABG pO2 ABG pO2 90.9 H ABG HCO3 26.5 H ABG O2 Saturation ABG Base Excess -2.7 L ABG Hemoglobin 12.3 L ABG Oxyhemoglobin ABG Sodium ABG Potassium ABG Chloride ABG Glucose Oxyhemoglobin 93.9 L Carboxyhemoglobin Sodium Potassium Chloride Carbon Dioxide BUN Creatinine Glucose POC Glucose 190 H 203 H Hemoglobin A1c Lactic Acid Calcium Phosphorus Magnesium Ferritin Total Bilirubin AST ALT Lactate Dehydrogenase C-Reactive Protein Albumin Triglycerides Arterial Blood Glucose Arterial Blood Ionized Calcium Urine Creatinine Coronavirus (PCR) Crossmatch 02/01/21 02/01/21 02/01/21 05:15 06:22 10:20 WBC RBC Hgb Hct MCV MCH MCHC RDW Plt Count Lymph % (Auto) Lymph # (Auto) Seg Neutrophils % Seg Neuts % (Manual) Lymphocytes % (Manual) Monocytes % (Manual) Nucleated RBC % Seg Neutrophils # Seg Neutrophils # Man Lymphocytes # (Manual) Monocytes # (Manual) Eosinophils # (Manual) INR D-Dimer ABG pH 6.920 L* 7.116 L* POC ABG pCO2 POC ABG pO2 ABG pO2 102.9 H 113.1 H ABG HCO3 28.2 H ABG O2 Saturation 92.9 L ABG Base Excess -6.9 L -5.8 L ABG Hemoglobin 11.6 L 9.5 L ABG Oxyhemoglobin ABG Sodium ABG Potassium ABG Chloride ABG Glucose Oxyhemoglobin 90.5 L 94.6 L Carboxyhemoglobin Sodium Potassium Chloride Carbon Dioxide BUN Creatinine Glucose POC Glucose 221 H Hemoglobin A1c Lactic Acid Calcium Phosphorus Magnesium Ferritin Total Bilirubin AST ALT Lactate Dehydrogenase C-Reactive Protein Albumin Triglycerides Arterial Blood Glucose Arterial Blood Ionized Calcium Urine Creatinine Coronavirus (PCR) Crossmatch 02/01/21 02/01/21 02/01/21 11:12 12:35 16:00 WBC RBC Hgb Hct MCV MCH MCHC RDW Plt Count Lymph % (Auto) Lymph # (Auto) Seg Neutrophils % Seg Neuts % (Manual) Lymphocytes % (Manual) Monocytes % (Manual) Nucleated RBC % Seg Neutrophils # Seg Neutrophils # Man Lymphocytes # (Manual) Monocytes # (Manual) Eosinophils # (Manual) INR D-Dimer ABG pH 7.155 L* POC ABG pCO2 POC ABG pO2 ABG pO2 94.6 H ABG HCO3 ABG O2 Saturation ABG Base Excess -6.5 L ABG Hemoglobin 13.1 L ABG Oxyhemoglobin ABG Sodium ABG Potassium ABG Chloride ABG Glucose Oxyhemoglobin 93.7 L Carboxyhemoglobin Sodium 155 H Potassium 5.1 H Chloride 120.5 H Carbon Dioxide BUN 90 H Creatinine 6.1 H D Glucose 238 H POC Glucose 207 H Hemoglobin A1c Lactic Acid Calcium 7.4 L Phosphorus Magnesium Ferritin Total Bilirubin AST ALT Lactate Dehydrogenase C-Reactive Protein Albumin Triglycerides Arterial Blood Glucose Arterial Blood Ionized Calcium Urine Creatinine Coronavirus (PCR) Crossmatch 02/01/21 02/01/21 02/02/21 17:10 23:47 04:04 WBC RBC 3.02 L Hgb 9.8 L Hct 30.7 L MCV 102 H MCH MCHC RDW 15.6 H Plt Count Lymph % (Auto) 4.2 L Lymph # (Auto) 0.3 L Seg Neutrophils % Seg Neuts % (Manual) Lymphocytes % (Manual) Monocytes % (Manual) Nucleated RBC % Seg Neutrophils # Seg Neutrophils # Man Lymphocytes # (Manual) Monocytes # (Manual) Eosinophils # (Manual) INR D-Dimer ABG pH POC ABG pCO2 POC ABG pO2 ABG pO2 ABG HCO3 ABG O2 Saturation ABG Base Excess ABG Hemoglobin ABG Oxyhemoglobin ABG Sodium ABG Potassium ABG Chloride ABG Glucose Oxyhemoglobin Carboxyhemoglobin Sodium Potassium Chloride Carbon Dioxide BUN Creatinine Glucose POC Glucose 238 H 235 H Hemoglobin A1c Lactic Acid Calcium Phosphorus Magnesium Ferritin Total Bilirubin AST ALT Lactate Dehydrogenase C-Reactive Protein Albumin Triglycerides Arterial Blood Glucose Arterial Blood Ionized Calcium Urine Creatinine Coronavirus (PCR) Crossmatch 02/02/21 02/02/21 02/02/21 05:18 05:35 11:28 WBC RBC Hgb Hct MCV MCH MCHC RDW Plt Count Lymph % (Auto) Lymph # (Auto) Seg Neutrophils % Seg Neuts % (Manual) Lymphocytes % (Manual) Monocytes % (Manual) Nucleated RBC % Seg Neutrophils # Seg Neutrophils # Man Lymphocytes # (Manual) Monocytes # (Manual) Eosinophils # (Manual) INR D-Dimer ABG pH 7.195 L* POC ABG pCO2 POC ABG pO2 ABG pO2 72.5 L ABG HCO3 ABG O2 Saturation 91.2 L ABG Base Excess -5.3 L ABG Hemoglobin 6.0 L ABG Oxyhemoglobin ABG Sodium ABG Potassium ABG Chloride ABG Glucose Oxyhemoglobin 89.1 L Carboxyhemoglobin Sodium Potassium Chloride 110.4 H Carbon Dioxide BUN 92 H Creatinine Glucose POC Glucose 239 H Hemoglobin A1c Lactic Acid Calcium Phosphorus Magnesium Ferritin Total Bilirubin AST ALT Lactate Dehydrogenase C-Reactive Protein Albumin Triglycerides Arterial Blood Glucose Arterial Blood Ionized Calcium Urine Creatinine Coronavirus (PCR) Crossmatch 02/02/21 02/02/21 02/02/21 11:53 16:00 18:04 WBC RBC Hgb Hct MCV MCH MCHC RDW Plt Count Lymph % (Auto) Lymph # (Auto) Seg Neutrophils % Seg Neuts % (Manual) Lymphocytes % (Manual) Monocytes % (Manual) Nucleated RBC % Seg Neutrophils # Seg Neutrophils # Man Lymphocytes # (Manual) Monocytes # (Manual) Eosinophils # (Manual) INR D-Dimer ABG pH POC ABG pCO2 POC ABG pO2 ABG pO2 ABG HCO3 ABG O2 Saturation ABG Base Excess ABG Hemoglobin ABG Oxyhemoglobin ABG Sodium ABG Potassium ABG Chloride ABG Glucose Oxyhemoglobin Carboxyhemoglobin Sodium Potassium Chloride Carbon Dioxide BUN Creatinine Glucose POC Glucose 248 H 199 H Hemoglobin A1c 6.3 H Lactic Acid Calcium Phosphorus Magnesium Ferritin Total Bilirubin AST ALT Lactate Dehydrogenase C-Reactive Protein Albumin Triglycerides Arterial Blood Glucose Arterial Blood Ionized Calcium Urine Creatinine Coronavirus (PCR) Crossmatch 04/05/21 04/06/21 04/06/21 23:31 03:12 04:10 WBC RBC 3.06 L Hgb 9.7 L Hct 30.4 L MCV 99 H MCH MCHC RDW 15.3 H Plt Count Lymph % (Auto) 6.1 L Lymph # (Auto) 0.5 L Seg Neutrophils % 86.1 H Seg Neuts % (Manual) Lymphocytes % (Manual) Monocytes % (Manual) Nucleated RBC % Seg Neutrophils # Seg Neutrophils # Man Lymphocytes # (Manual) Monocytes # (Manual) Eosinophils # (Manual) INR D-Dimer ABG pH 7.199 L POC ABG pCO2 48.3 H POC ABG pO2 68.3 L ABG pO2 ABG HCO3 ABG O2 Saturation ABG Base Excess ABG Hemoglobin 10.2 L ABG Oxyhemoglobin 89.2 L ABG Sodium 155.0 H ABG Potassium 4.6 H ABG Chloride 121.0 H ABG Glucose 166 H Oxyhemoglobin Carboxyhemoglobin 0.3 L Sodium Potassium Chloride Carbon Dioxide BUN Creatinine Glucose POC Glucose 200 H Hemoglobin A1c Lactic Acid Calcium Phosphorus Magnesium Ferritin Total Bilirubin AST ALT Lactate Dehydrogenase C-Reactive Protein Albumin Triglycerides Arterial Blood Glucose 166 H Arterial Blood Ionized Calcium 4.1 L Urine Creatinine Coronavirus (PCR) Crossmatch 02/03/21 02/03/21 02/03/21 04:10 05:34 11:51 WBC RBC Hgb Hct MCV MCH MCHC RDW Plt Count Lymph % (Auto) Lymph # (Auto) Seg Neutrophils % Seg Neuts % (Manual) Lymphocytes % (Manual) Monocytes % (Manual) Nucleated RBC % Seg Neutrophils # Seg Neutrophils # Man Lymphocytes # (Manual) Monocytes # (Manual) Eosinophils # (Manual) INR D-Dimer ABG pH POC ABG pCO2 POC ABG pO2 ABG pO2 ABG HCO3 ABG O2 Saturation ABG Base Excess ABG Hemoglobin ABG Oxyhemoglobin ABG Sodium ABG Potassium ABG Chloride ABG Glucose Oxyhemoglobin Carboxyhemoglobin Sodium 154 H D Potassium Chloride 116.7 H Carbon Dioxide 20 L BUN 130 H Creatinine 9.2 H D Glucose 160 H POC Glucose 130 H 154 H Hemoglobin A1c Lactic Acid Calcium 6.7 L Phosphorus 8.60 H Magnesium Ferritin Total Bilirubin AST ALT Lactate Dehydrogenase C-Reactive Protein Albumin Triglycerides Arterial Blood Glucose Arterial Blood Ionized Calcium Urine Creatinine Coronavirus (PCR) Crossmatch 02/03/21 02/03/21 02/04/21 16:49 23:22 03:48 WBC RBC Hgb Hct MCV MCH MCHC RDW Plt Count Lymph % (Auto) Lymph # (Auto) Seg Neutrophils % Seg Neuts % (Manual) Lymphocytes % (Manual) Monocytes % (Manual) Nucleated RBC % Seg Neutrophils # Seg Neutrophils # Man Lymphocytes # (Manual) Monocytes # (Manual) Eosinophils # (Manual) INR D-Dimer ABG pH 7.201 L POC ABG pCO2 54.5 H POC ABG pO2 74.0 L ABG pO2 ABG HCO3 ABG O2 Saturation ABG Base Excess ABG Hemoglobin 9.7 L ABG Oxyhemoglobin 91.1 L ABG Sodium 146.2 H ABG Potassium ABG Chloride 114.0 H ABG Glucose 155 H Oxyhemoglobin Carboxyhemoglobin Sodium Potassium Chloride Carbon Dioxide BUN Creatinine Glucose POC Glucose 164 H 152 H Hemoglobin A1c Lactic Acid Calcium Phosphorus Magnesium Ferritin Total Bilirubin AST ALT Lactate Dehydrogenase C-Reactive Protein Albumin Triglycerides Arterial Blood Glucose 155 H Arterial Blood Ionized Calcium 3.9 L Urine Creatinine Coronavirus (PCR) Crossmatch 02/04/21 02/04/21 02/04/21 04:45 04:45 04:45 WBC RBC 2.75 L Hgb 9.1 L Hct 26.9 L MCV 98 H MCH 33 H MCHC RDW Plt Count Lymph % (Auto) 6.8 L Lymph # (Auto) 0.5 L Seg Neutrophils % 87.2 H Seg Neuts % (Manual) Lymphocytes % (Manual) Monocytes % (Manual) Nucleated RBC % Seg Neutrophils # Seg Neutrophils # Man Lymphocytes # (Manual) Monocytes # (Manual) Eosinophils # (Manual) INR D-Dimer ABG pH POC ABG pCO2 POC ABG pO2 ABG pO2 ABG HCO3 ABG O2 Saturation ABG Base Excess ABG Hemoglobin ABG Oxyhemoglobin ABG Sodium ABG Potassium ABG Chloride ABG Glucose Oxyhemoglobin Carboxyhemoglobin Sodium 149 H Potassium Chloride 111.5 H Carbon Dioxide BUN 99 H Creatinine 8.5 H Glucose 139 H POC Glucose Hemoglobin A1c Lactic Acid Calcium 6.8 L Phosphorus 8.40 H Magnesium Ferritin Total Bilirubin AST ALT Lactate Dehydrogenase C-Reactive Protein Albumin Triglycerides Arterial Blood Glucose Arterial Blood Ionized Calcium Urine Creatinine Coronavirus (PCR) Crossmatch 02/04/21 02/04/21 02/04/21 06:05 11:44 18:00 WBC RBC Hgb Hct MCV MCH MCHC RDW Plt Count Lymph % (Auto) Lymph # (Auto) Seg Neutrophils % Seg Neuts % (Manual) Lymphocytes % (Manual) Monocytes % (Manual) Nucleated RBC % Seg Neutrophils # Seg Neutrophils # Man Lymphocytes # (Manual) Monocytes # (Manual) Eosinophils # (Manual) INR D-Dimer ABG pH POC ABG pCO2 POC ABG pO2 ABG pO2 ABG HCO3 ABG O2 Saturation ABG Base Excess ABG Hemoglobin ABG Oxyhemoglobin ABG Sodium ABG Potassium ABG Chloride ABG Glucose Oxyhemoglobin Carboxyhemoglobin Sodium Potassium Chloride Carbon Dioxide BUN Creatinine Glucose POC Glucose 138 H 129 H 163 H Hemoglobin A1c Lactic Acid Calcium Phosphorus Magnesium Ferritin Total Bilirubin AST ALT Lactate Dehydrogenase C-Reactive Protein Albumin Triglycerides Arterial Blood Glucose Arterial Blood Ionized Calcium Urine Creatinine Coronavirus (PCR) Crossmatch 02/04/21 02/05/21 02/05/21 23:48 01:50 01:50 WBC RBC 2.43 L Hgb 8.3 L Hct 23.6 L MCV 97 H MCH 34 H MCHC 35 H RDW Plt Count 137 L Lymph % (Auto) 8.4 L Lymph # (Auto) 0.6 L Seg Neutrophils % 86.1 H Seg Neuts % (Manual) Lymphocytes % (Manual) Monocytes % (Manual) Nucleated RBC % Seg Neutrophils # Seg Neutrophils # Man Lymphocytes # (Manual) Monocytes # (Manual) Eosinophils # (Manual) INR D-Dimer ABG pH POC ABG pCO2 POC ABG pO2 ABG pO2 ABG HCO3 ABG O2 Saturation ABG Base Excess ABG Hemoglobin ABG Oxyhemoglobin ABG Sodium ABG Potassium ABG Chloride ABG Glucose Oxyhemoglobin Carboxyhemoglobin Sodium Potassium Chloride Carbon Dioxide BUN Creatinine Glucose POC Glucose 157 H Hemoglobin A1c Lactic Acid Calcium Phosphorus 5.60 H D Magnesium Ferritin Total Bilirubin AST ALT Lactate Dehydrogenase C-Reactive Protein Albumin Triglycerides Arterial Blood Glucose Arterial Blood Ionized Calcium Urine Creatinine Coronavirus (PCR) Crossmatch 02/05/21 02/05/21 02/05/21 03:44 05:27 09:15 WBC RBC Hgb Hct MCV MCH MCHC RDW Plt Count Lymph % (Auto) Lymph # (Auto) Seg Neutrophils % Seg Neuts % (Manual) Lymphocytes % (Manual) Monocytes % (Manual) Nucleated RBC % Seg Neutrophils # Seg Neutrophils # Man Lymphocytes # (Manual) Monocytes # (Manual) Eosinophils # (Manual) INR D-Dimer ABG pH 7.202 L POC ABG pCO2 63.7 H POC ABG pO2 69.0 L ABG pO2 ABG HCO3 ABG O2 Saturation ABG Base Excess ABG Hemoglobin 9.4 L ABG Oxyhemoglobin ABG Sodium ABG Potassium ABG Chloride 108.0 H ABG Glucose 186 H Oxyhemoglobin Carboxyhemoglobin Sodium Potassium Chloride Carbon Dioxide BUN 78 H Creatinine 8.0 H Glucose 163 H POC Glucose 157 H Hemoglobin A1c Lactic Acid Calcium 6.3 L Phosphorus Magnesium Ferritin Total Bilirubin AST ALT Lactate Dehydrogenase C-Reactive Protein Albumin Triglycerides Arterial Blood Glucose 186 H Arterial Blood Ionized Calcium 3.9 L Urine Creatinine Coronavirus (PCR) Crossmatch 02/05/21 02/05/21 02/05/21 11:47 17:39 23:40 WBC RBC Hgb Hct MCV MCH MCHC RDW Plt Count Lymph % (Auto) Lymph # (Auto) Seg Neutrophils % Seg Neuts % (Manual) Lymphocytes % (Manual) Monocytes % (Manual) Nucleated RBC % Seg Neutrophils # Seg Neutrophils # Man Lymphocytes # (Manual) Monocytes # (Manual) Eosinophils # (Manual) INR D-Dimer ABG pH 7.273 L POC ABG pCO2 62.1 H POC ABG pO2 72.0 L ABG pO2 ABG HCO3 ABG O2 Saturation ABG Base Excess ABG Hemoglobin 9.1 L ABG Oxyhemoglobin 91.3 L ABG Sodium ABG Potassium 3.1 L ABG Chloride ABG Glucose 125 H Oxyhemoglobin Carboxyhemoglobin Sodium Potassium Chloride Carbon Dioxide BUN Creatinine Glucose POC Glucose 126 H 126 H Hemoglobin A1c Lactic Acid Calcium Phosphorus Magnesium Ferritin Total Bilirubin AST ALT Lactate Dehydrogenase C-Reactive Protein Albumin Triglycerides Arterial Blood Glucose 125 H Arterial Blood Ionized Calcium 4.0 L Urine Creatinine Coronavirus (PCR) Crossmatch 02/06/21 02/06/21 02/06/21 04:30 04:57 09:45 WBC RBC Hgb Hct MCV MCH MCHC RDW Plt Count Lymph % (Auto) Lymph # (Auto) Seg Neutrophils % Seg Neuts % (Manual) Lymphocytes % (Manual) Monocytes % (Manual) Nucleated RBC % Seg Neutrophils # Seg Neutrophils # Man Lymphocytes # (Manual) Monocytes # (Manual) Eosinophils # (Manual) INR D-Dimer ABG pH 7.159 L 7.138 L* POC ABG pCO2 76.3 H POC ABG pO2 66.9 L ABG pO2 ABG HCO3 ABG O2 Saturation 93.4 L ABG Base Excess -6.0 L ABG Hemoglobin 11.2 L 11.7 L ABG Oxyhemoglobin 88.2 L ABG Sodium ABG Potassium ABG Chloride ABG Glucose 134 H Oxyhemoglobin 91.2 L Carboxyhemoglobin Sodium Potassium Chloride Carbon Dioxide BUN Creatinine Glucose POC Glucose 124 H Hemoglobin A1c Lactic Acid Calcium Phosphorus Magnesium Ferritin Total Bilirubin AST ALT Lactate Dehydrogenase C-Reactive Protein Albumin Triglycerides Arterial Blood Glucose 134 H Arterial Blood Ionized Calcium 3.9 L Urine Creatinine Coronavirus (PCR) Crossmatch 02/06/21 02/06/21 02/06/21 11:11 17:00 17:00 WBC RBC Hgb Hct MCV MCH MCHC RDW Plt Count Lymph % (Auto) Lymph # (Auto) Seg Neutrophils % Seg Neuts % (Manual) Lymphocytes % (Manual) Monocytes % (Manual) Nucleated RBC % Seg Neutrophils # Seg Neutrophils # Man Lymphocytes # (Manual) Monocytes # (Manual) Eosinophils # (Manual) INR D-Dimer ABG pH 7.158 L* POC ABG pCO2 POC ABG pO2 ABG pO2 109.8 H ABG HCO3 28.7 H ABG O2 Saturation ABG Base Excess -2.5 L ABG Hemoglobin ABG Oxyhemoglobin ABG Sodium ABG Potassium ABG Chloride ABG Glucose Oxyhemoglobin 94.5 L Carboxyhemoglobin Sodium Potassium Chloride Carbon Dioxide BUN Creatinine Glucose POC Glucose 120 H Hemoglobin A1c Lactic Acid Calcium Phosphorus Magnesium Ferritin Total Bilirubin AST ALT Lactate Dehydrogenase C-Reactive Protein Albumin Triglycerides 503 H Arterial Blood Glucose Arterial Blood Ionized Calcium Urine Creatinine Coronavirus (PCR) Crossmatch 02/06/21 02/06/21 02/06/21 17:28 20:16 Unknown WBC 13.5 H RBC 2.98 L Hgb 9.3 L Hct 28.6 L MCV 96 H MCH MCHC RDW Plt Count Lymph % (Auto) Lymph # (Auto) Seg Neutrophils % Seg Neuts % (Manual) 87.0 H Lymphocytes % (Manual) 7.0 L Monocytes % (Manual) Nucleated RBC % Seg Neutrophils # Seg Neutrophils # Man 11.7 H Lymphocytes # (Manual) 0.9 L Monocytes # (Manual) Eosinophils # (Manual) 0.5 H INR D-Dimer ABG pH POC ABG pCO2 POC ABG pO2 ABG pO2 ABG HCO3 ABG O2 Saturation ABG Base Excess ABG Hemoglobin ABG Oxyhemoglobin ABG Sodium ABG Potassium ABG Chloride ABG Glucose Oxyhemoglobin Carboxyhemoglobin Sodium Potassium Chloride Carbon Dioxide BUN Creatinine Glucose POC Glucose 147 H 164 H Hemoglobin A1c Lactic Acid Calcium Phosphorus Magnesium Ferritin Total Bilirubin AST ALT Lactate Dehydrogenase C-Reactive Protein Albumin Triglycerides Arterial Blood Glucose Arterial Blood Ionized Calcium Urine Creatinine Coronavirus (PCR) Crossmatch 02/06/21 02/07/21 02/07/21 Unknown 01:21 04:00 WBC 12.0 H RBC 2.61 L Hgb 8.2 L Hct 24.5 L MCV MCH MCHC RDW Plt Count Lymph % (Auto) 8.9 L Lymph # (Auto) 1.1 L Seg Neutrophils % 86.3 H Seg Neuts % (Manual) Lymphocytes % (Manual) Monocytes % (Manual) Nucleated RBC % Seg Neutrophils # 10.3 H Seg Neutrophils # Man Lymphocytes # (Manual) Monocytes # (Manual) Eosinophils # (Manual) INR D-Dimer ABG pH POC ABG pCO2 POC ABG pO2 ABG pO2 ABG HCO3 ABG O2 Saturation ABG Base Excess ABG Hemoglobin ABG Oxyhemoglobin ABG Sodium ABG Potassium ABG Chloride ABG Glucose Oxyhemoglobin Carboxyhemoglobin Sodium Potassium 3.5 L Chloride Carbon Dioxide BUN 58 H Creatinine 6.6 H Glucose 107 H POC Glucose 173 H Hemoglobin A1c Lactic Acid Calcium 6.7 L Phosphorus 8.00 H D Magnesium Ferritin Total Bilirubin AST ALT Lactate Dehydrogenase C-Reactive Protein Albumin Triglycerides Arterial Blood Glucose Arterial Blood Ionized Calcium Urine Creatinine Coronavirus (PCR) Crossmatch 02/07/21 02/07/21 02/07/21 04:00 04:45 11:49 WBC RBC Hgb Hct MCV MCH MCHC RDW Plt Count Lymph % (Auto) Lymph # (Auto) Seg Neutrophils % Seg Neuts % (Manual) Lymphocytes % (Manual) Monocytes % (Manual) Nucleated RBC % Seg Neutrophils # Seg Neutrophils # Man Lymphocytes # (Manual) Monocytes # (Manual) Eosinophils # (Manual) INR D-Dimer ABG pH 7.287 L POC ABG pCO2 64.8 H POC ABG pO2 74.0 L ABG pO2 ABG HCO3 ABG O2 Saturation ABG Base Excess ABG Hemoglobin 9.1 L ABG Oxyhemoglobin 92.0 L ABG Sodium ABG Potassium 2.8 L ABG Chloride ABG Glucose 226 H Oxyhemoglobin Carboxyhemoglobin Sodium Potassium Chloride Carbon Dioxide BUN Creatinine Glucose POC Glucose 170 H Hemoglobin A1c Lactic Acid Calcium Phosphorus 5.50 H D Magnesium Ferritin Total Bilirubin AST ALT Lactate Dehydrogenase C-Reactive Protein Albumin Triglycerides Arterial Blood Glucose 226 H Arterial Blood Ionized Calcium 3.7 L Urine Creatinine Coronavirus (PCR) Crossmatch 02/07/21 02/07/21 02/07/21 13:48 17:45 23:02 WBC RBC Hgb Hct MCV MCH MCHC RDW Plt Count Lymph % (Auto) Lymph # (Auto) Seg Neutrophils % Seg Neuts % (Manual) Lymphocytes % (Manual) Monocytes % (Manual) Nucleated RBC % Seg Neutrophils # Seg Neutrophils # Man Lymphocytes # (Manual) Monocytes # (Manual) Eosinophils # (Manual) INR D-Dimer ABG pH POC ABG pCO2 POC ABG pO2 ABG pO2 ABG HCO3 ABG O2 Saturation ABG Base Excess ABG Hemoglobin ABG Oxyhemoglobin ABG Sodium ABG Potassium ABG Chloride ABG Glucose Oxyhemoglobin Carboxyhemoglobin Sodium 136 L Potassium 2.6 L* D Chloride 95.1 L Carbon Dioxide 33 H D BUN 30 H Creatinine 3.6 H Glucose 184 H POC Glucose 172 H 172 H Hemoglobin A1c Lactic Acid Calcium 6.9 L Phosphorus Magnesium Ferritin Total Bilirubin AST ALT Lactate Dehydrogenase C-Reactive Protein Albumin Triglycerides Arterial Blood Glucose Arterial Blood Ionized Calcium Urine Creatinine Coronavirus (PCR) Crossmatch 02/08/21 02/08/21 02/08/21 05:22 06:00 06:00 WBC RBC 2.21 L Hgb 7.2 L Hct 21.0 L MCV 95 H MCH MCHC RDW Plt Count Lymph % (Auto) Lymph # (Auto) Seg Neutrophils % Seg Neuts % (Manual) 87.0 H Lymphocytes % (Manual) 4.0 L Monocytes % (Manual) Nucleated RBC % Seg Neutrophils # Seg Neutrophils # Man 8.5 H Lymphocytes # (Manual) 0.4 L Monocytes # (Manual) Eosinophils # (Manual) INR D-Dimer ABG pH POC ABG pCO2 POC ABG pO2 ABG pO2 ABG HCO3 ABG O2 Saturation ABG Base Excess ABG Hemoglobin ABG Oxyhemoglobin ABG Sodium ABG Potassium ABG Chloride ABG Glucose Oxyhemoglobin Carboxyhemoglobin Sodium 136 L Potassium 2.4 L* Chloride 93.1 L Carbon Dioxide 36 H BUN 43 H Creatinine 5.4 H Glucose 167 H POC Glucose 162 H Hemoglobin A1c Lactic Acid Calcium 6.3 L Phosphorus Magnesium Ferritin Total Bilirubin AST ALT Lactate Dehydrogenase C-Reactive Protein Albumin Triglycerides Arterial Blood Glucose Arterial Blood Ionized Calcium Urine Creatinine Coronavirus (PCR) Crossmatch 02/08/21 02/08/21 02/08/21 11:44 17:53 18:56 WBC RBC Hgb Hct MCV MCH MCHC RDW Plt Count Lymph % (Auto) Lymph # (Auto) Seg Neutrophils % Seg Neuts % (Manual) Lymphocytes % (Manual) Monocytes % (Manual) Nucleated RBC % Seg Neutrophils # Seg Neutrophils # Man Lymphocytes # (Manual) Monocytes # (Manual) Eosinophils # (Manual) INR D-Dimer ABG pH POC ABG pCO2 POC ABG pO2 ABG pO2 ABG HCO3 ABG O2 Saturation ABG Base Excess ABG Hemoglobin ABG Oxyhemoglobin ABG Sodium ABG Potassium ABG Chloride ABG Glucose Oxyhemoglobin Carboxyhemoglobin Sodium Potassium 2.9 L* D Chloride Carbon Dioxide BUN Creatinine Glucose POC Glucose 164 H 154 H Hemoglobin A1c Lactic Acid Calcium Phosphorus Magnesium Ferritin Total Bilirubin AST ALT Lactate Dehydrogenase C-Reactive Protein Albumin Triglycerides Arterial Blood Glucose Arterial Blood Ionized Calcium Urine Creatinine Coronavirus (PCR) Crossmatch 02/08/21 02/08/21 02/09/21 23:24 23:58 03:21 WBC RBC Hgb Hct MCV MCH MCHC RDW Plt Count Lymph % (Auto) Lymph # (Auto) Seg Neutrophils % Seg Neuts % (Manual) Lymphocytes % (Manual) Monocytes % (Manual) Nucleated RBC % Seg Neutrophils # Seg Neutrophils # Man Lymphocytes # (Manual) Monocytes # (Manual) Eosinophils # (Manual) INR D-Dimer ABG pH 7.319 L POC ABG pCO2 63.3 H 68.3 H POC ABG pO2 71.2 L 76.5 L ABG pO2 ABG HCO3 ABG O2 Saturation ABG Base Excess ABG Hemoglobin 8.2 L 7.0 L ABG Oxyhemoglobin 91.8 L 92.2 L ABG Sodium 134.6 L 133.0 L ABG Potassium 2.3 L 3.1 L ABG Chloride 96.0 L 95.0 L ABG Glucose 184 H 154 H Oxyhemoglobin Carboxyhemoglobin Sodium Potassium Chloride Carbon Dioxide BUN Creatinine Glucose POC Glucose 152 H Hemoglobin A1c Lactic Acid Calcium Phosphorus Magnesium Ferritin Total Bilirubin AST ALT Lactate Dehydrogenase C-Reactive Protein Albumin Triglycerides Arterial Blood Glucose 184 H 154 H Arterial Blood Ionized Calcium 3.6 L 3.5 L Urine Creatinine Coronavirus (PCR) Crossmatch 02/09/21 02/09/21 02/09/21 05:10 05:10 06:04 WBC RBC 2.14 L Hgb 7.0 L Hct 20.5 L MCV 96 H MCH 33 H MCHC RDW Plt Count Lymph % (Auto) Lymph # (Auto) Seg Neutrophils % Seg Neuts % (Manual) 82.0 H Lymphocytes % (Manual) 9.0 L Monocytes % (Manual) Nucleated RBC % 1.0 H Seg Neutrophils # Seg Neutrophils # Man 8.9 H Lymphocytes # (Manual) 1.0 L Monocytes # (Manual) Eosinophils # (Manual) INR D-Dimer ABG pH POC ABG pCO2 POC ABG pO2 ABG pO2 ABG HCO3 ABG O2 Saturation ABG Base Excess ABG Hemoglobin ABG Oxyhemoglobin ABG Sodium ABG Potassium ABG Chloride ABG Glucose Oxyhemoglobin Carboxyhemoglobin Sodium 135 L Potassium 3.2 L Chloride 91.0 L Carbon Dioxide 32 H BUN 54 H Creatinine 6.6 H Glucose 163 H POC Glucose 149 H Hemoglobin A1c Lactic Acid Calcium 6.2 L Phosphorus Magnesium Ferritin Total Bilirubin AST ALT Lactate Dehydrogenase C-Reactive Protein Albumin Triglycerides Arterial Blood Glucose Arterial Blood Ionized Calcium Urine Creatinine Coronavirus (PCR) Crossmatch 02/09/21 02/09/21 02/09/21 12:02 13:32 13:40 WBC RBC Hgb Hct MCV MCH MCHC RDW Plt Count Lymph % (Auto) Lymph # (Auto) Seg Neutrophils % Seg Neuts % (Manual) Lymphocytes % (Manual) Monocytes % (Manual) Nucleated RBC % Seg Neutrophils # Seg Neutrophils # Man Lymphocytes # (Manual) Monocytes # (Manual) Eosinophils # (Manual) INR D-Dimer ABG pH POC ABG pCO2 POC ABG pO2 ABG pO2 ABG HCO3 ABG O2 Saturation ABG Base Excess ABG Hemoglobin ABG Oxyhemoglobin ABG Sodium ABG Potassium ABG Chloride ABG Glucose Oxyhemoglobin Carboxyhemoglobin Sodium Potassium Chloride Carbon Dioxide BUN Creatinine Glucose POC Glucose 147 H Hemoglobin A1c Lactic Acid Calcium Phosphorus Magnesium Ferritin Total Bilirubin AST ALT Lactate Dehydrogenase C-Reactive Protein Albumin Triglycerides 250 H Arterial Blood Glucose Arterial Blood Ionized Calcium Urine Creatinine Coronavirus (PCR) Crossmatch See Detail 02/09/21 02/09/21 02/10/21 18:06 23:42 04:00 WBC RBC Hgb Hct MCV MCH MCHC RDW Plt Count Lymph % (Auto) Lymph # (Auto) Seg Neutrophils % Seg Neuts % (Manual) Lymphocytes % (Manual) Monocytes % (Manual) Nucleated RBC % Seg Neutrophils # Seg Neutrophils # Man Lymphocytes # (Manual) Monocytes # (Manual) Eosinophils # (Manual) INR D-Dimer ABG pH POC ABG pCO2 65.8 H POC ABG pO2 68.0 L ABG pO2 ABG HCO3 ABG O2 Saturation ABG Base Excess ABG Hemoglobin 8.3 L ABG Oxyhemoglobin ABG Sodium 132.4 L ABG Potassium 2.9 L ABG Chloride 92.0 L ABG Glucose 174 H Oxyhemoglobin Carboxyhemoglobin Sodium Potassium Chloride Carbon Dioxide BUN Creatinine Glucose POC Glucose 152 H 147 H Hemoglobin A1c Lactic Acid Calcium Phosphorus Magnesium Ferritin Total Bilirubin AST ALT Lactate Dehydrogenase C-Reactive Protein Albumin Triglycerides Arterial Blood Glucose 174 H Arterial Blood Ionized Calcium 3.4 L Urine Creatinine Coronavirus (PCR) Crossmatch 02/10/21 02/10/21 02/10/21 05:32 11:29 14:08 WBC 12.5 H RBC 2.14 L Hgb 6.6 L Hct 20.2 L MCV MCH MCHC RDW Plt Count Lymph % (Auto) Lymph # (Auto) Seg Neutrophils % Seg Neuts % (Manual) Lymphocytes % (Manual) Monocytes % (Manual) Nucleated RBC % Seg Neutrophils # Seg Neutrophils # Man Lymphocytes # (Manual) Monocytes # (Manual) Eosinophils # (Manual) INR D-Dimer ABG pH POC ABG pCO2 POC ABG pO2 ABG pO2 ABG HCO3 ABG O2 Saturation ABG Base Excess ABG Hemoglobin ABG Oxyhemoglobin ABG Sodium ABG Potassium ABG Chloride ABG Glucose Oxyhemoglobin Carboxyhemoglobin Sodium Potassium Chloride Carbon Dioxide BUN Creatinine Glucose POC Glucose 167 H 147 H Hemoglobin A1c Lactic Acid Calcium Phosphorus Magnesium Ferritin Total Bilirubin AST ALT Lactate Dehydrogenase C-Reactive Protein Albumin Triglycerides Arterial Blood Glucose Arterial Blood Ionized Calcium Urine Creatinine Coronavirus (PCR) Crossmatch 02/10/21 02/10/21 02/10/21 14:08 18:11 22:32 WBC RBC Hgb 6.4 L Hct 19.1 L* MCV MCH MCHC RDW Plt Count Lymph % (Auto) Lymph # (Auto) Seg Neutrophils % Seg Neuts % (Manual) Lymphocytes % (Manual) Monocytes % (Manual) Nucleated RBC % Seg Neutrophils # Seg Neutrophils # Man Lymphocytes # (Manual) Monocytes # (Manual) Eosinophils # (Manual) INR D-Dimer ABG pH POC ABG pCO2 POC ABG pO2 ABG pO2 ABG HCO3 ABG O2 Saturation ABG Base Excess ABG Hemoglobin ABG Oxyhemoglobin ABG Sodium ABG Potassium ABG Chloride ABG Glucose Oxyhemoglobin Carboxyhemoglobin Sodium 136 L Potassium 2.9 L* Chloride 90.2 L Carbon Dioxide 33 H BUN 42 H Creatinine 7.5 H Glucose 155 H POC Glucose 173 H Hemoglobin A1c Lactic Acid Calcium 6.1 L Phosphorus Magnesium Ferritin Total Bilirubin AST ALT Lactate Dehydrogenase C-Reactive Protein Albumin Triglycerides Arterial Blood Glucose Arterial Blood Ionized Calcium Urine Creatinine Coronavirus (PCR) Crossmatch 02/11/21 02/11/21 02/11/21 00:28 04:05 04:30 WBC RBC Hgb Hct MCV MCH MCHC RDW Plt Count Lymph % (Auto) Lymph # (Auto) Seg Neutrophils % Seg Neuts % (Manual) Lymphocytes % (Manual) Monocytes % (Manual) Nucleated RBC % Seg Neutrophils # Seg Neutrophils # Man Lymphocytes # (Manual) Monocytes # (Manual) Eosinophils # (Manual) INR D-Dimer ABG pH 7.307 L POC ABG pCO2 72.2 H POC ABG pO2 72.3 L ABG pO2 ABG HCO3 ABG O2 Saturation ABG Base Excess ABG Hemoglobin 8.2 L ABG Oxyhemoglobin ABG Sodium 132.3 L ABG Potassium 3.2 L ABG Chloride 91.0 L ABG Glucose 197 H Oxyhemoglobin Carboxyhemoglobin Sodium 135 L Potassium 3.3 L Chloride 87.1 L Carbon Dioxide 36 H BUN 71 H Creatinine 7.9 H Glucose 263 H POC Glucose 192 H Hemoglobin A1c Lactic Acid Calcium 6.2 L Phosphorus Magnesium Ferritin Total Bilirubin AST ALT Lactate Dehydrogenase C-Reactive Protein Albumin Triglycerides Arterial Blood Glucose 197 H Arterial Blood Ionized Calcium 3.3 L Urine Creatinine Coronavirus (PCR) Crossmatch 02/11/21 02/11/21 02/11/21 04:30 05:47 08:27 WBC RBC 2.22 L Hgb 7.2 L Hct 21.0 L MCV MCH MCHC RDW Plt Count Lymph % (Auto) 8.7 L Lymph # (Auto) 0.9 L Seg Neutrophils % 85.5 H Seg Neuts % (Manual) Lymphocytes % (Manual) Monocytes % (Manual) Nucleated RBC % Seg Neutrophils # 9.2 H Seg Neutrophils # Man Lymphocytes # (Manual) Monocytes # (Manual) Eosinophils # (Manual) INR 1.17 H D-Dimer 1930.92 H ABG pH POC ABG pCO2 POC ABG pO2 ABG pO2 ABG HCO3 ABG O2 Saturation ABG Base Excess ABG Hemoglobin ABG Oxyhemoglobin ABG Sodium ABG Potassium ABG Chloride ABG Glucose Oxyhemoglobin Carboxyhemoglobin Sodium Potassium Chloride Carbon Dioxide BUN Creatinine Glucose POC Glucose 189 H Hemoglobin A1c Lactic Acid Calcium Phosphorus Magnesium Ferritin Total Bilirubin AST ALT Lactate Dehydrogenase C-Reactive Protein Albumin Triglycerides Arterial Blood Glucose Arterial Blood Ionized Calcium Urine Creatinine Coronavirus (PCR) Crossmatch 02/11/21 02/11/21 02/11/21 09:00 09:00 13:18 WBC RBC Hgb Hct MCV MCH MCHC RDW Plt Count Lymph % (Auto) Lymph # (Auto) Seg Neutrophils % Seg Neuts % (Manual) Lymphocytes % (Manual) Monocytes % (Manual) Nucleated RBC % Seg Neutrophils # Seg Neutrophils # Man Lymphocytes # (Manual) Monocytes # (Manual) Eosinophils # (Manual) INR D-Dimer ABG pH POC ABG pCO2 POC ABG pO2 ABG pO2 ABG HCO3 ABG O2 Saturation ABG Base Excess ABG Hemoglobin ABG Oxyhemoglobin ABG Sodium ABG Potassium ABG Chloride ABG Glucose Oxyhemoglobin Carboxyhemoglobin Sodium Potassium Chloride Carbon Dioxide BUN Creatinine Glucose 126 H POC Glucose 160 H Hemoglobin A1c Lactic Acid Calcium Phosphorus Magnesium Ferritin 1253.0 H Total Bilirubin AST ALT Lactate Dehydrogenase 649 H C-Reactive Protein 12.60 H Albumin Triglycerides Arterial Blood Glucose Arterial Blood Ionized Calcium Urine Creatinine Coronavirus (PCR) Crossmatch 02/11/21 02/11/21 02/11/21 14:30 16:59 22:34 WBC RBC Hgb 7.1 L 6.7 L Hct 20.5 L 19.9 L* MCV MCH MCHC RDW Plt Count Lymph % (Auto) Lymph # (Auto) Seg Neutrophils % Seg Neuts % (Manual) Lymphocytes % (Manual) Monocytes % (Manual) Nucleated RBC % Seg Neutrophils # Seg Neutrophils # Man Lymphocytes # (Manual) Monocytes # (Manual) Eosinophils # (Manual) INR D-Dimer ABG pH POC ABG pCO2 POC ABG pO2 ABG pO2 ABG HCO3 ABG O2 Saturation ABG Base Excess ABG Hemoglobin ABG Oxyhemoglobin ABG Sodium ABG Potassium ABG Chloride ABG Glucose Oxyhemoglobin Carboxyhemoglobin Sodium Potassium Chloride Carbon Dioxide BUN Creatinine Glucose POC Glucose 151 H Hemoglobin A1c Lactic Acid Calcium Phosphorus Magnesium Ferritin Total Bilirubin AST ALT Lactate Dehydrogenase C-Reactive Protein Albumin Triglycerides Arterial Blood Glucose Arterial Blood Ionized Calcium Urine Creatinine Coronavirus (PCR) Crossmatch 02/11/21 02/12/21 02/12/21 23:42 04:41 05:19 WBC RBC Hgb Hct MCV MCH MCHC RDW Plt Count Lymph % (Auto) Lymph # (Auto) Seg Neutrophils % Seg Neuts % (Manual) Lymphocytes % (Manual) Monocytes % (Manual) Nucleated RBC % Seg Neutrophils # Seg Neutrophils # Man Lymphocytes # (Manual) Monocytes # (Manual) Eosinophils # (Manual) INR D-Dimer ABG pH POC ABG pCO2 POC ABG pO2 ABG pO2 69.0 L ABG HCO3 32.5 H ABG O2 Saturation ABG Base Excess 7.7 H ABG Hemoglobin 5.1 L ABG Oxyhemoglobin ABG Sodium ABG Potassium ABG Chloride ABG Glucose Oxyhemoglobin 94.7 L Carboxyhemoglobin Sodium Potassium Chloride Carbon Dioxide BUN Creatinine Glucose POC Glucose 165 H 153 H Hemoglobin A1c Lactic Acid Calcium Phosphorus Magnesium Ferritin Total Bilirubin AST ALT Lactate Dehydrogenase C-Reactive Protein Albumin Triglycerides Arterial Blood Glucose Arterial Blood Ionized Calcium Urine Creatinine Coronavirus (PCR) Crossmatch 02/12/21 02/12/21 02/12/21 06:35 06:35 08:40 WBC RBC 2.21 L Hgb 7.2 L Hct 20.7 L MCV MCH 33 H MCHC 35 H RDW Plt Count Lymph % (Auto) Lymph # (Auto) Seg Neutrophils % Seg Neuts % (Manual) Lymphocytes % (Manual) Monocytes % (Manual) Nucleated RBC % Seg Neutrophils # Seg Neutrophils # Man Lymphocytes # (Manual) Monocytes # (Manual) Eosinophils # (Manual) INR D-Dimer ABG pH POC ABG pCO2 POC ABG pO2 ABG pO2 ABG HCO3 ABG O2 Saturation ABG Base Excess ABG Hemoglobin ABG Oxyhemoglobin ABG Sodium ABG Potassium ABG Chloride ABG Glucose Oxyhemoglobin Carboxyhemoglobin Sodium 135 L Potassium 3.4 L Chloride 91.8 L Carbon Dioxide 36 H BUN 57 H Creatinine 6.8 H Glucose 163 H POC Glucose Hemoglobin A1c Lactic Acid Calcium 7.0 L Phosphorus Magnesium 1.60 L Ferritin Total Bilirubin AST ALT Lactate Dehydrogenase C-Reactive Protein Albumin Triglycerides Arterial Blood Glucose Arterial Blood Ionized Calcium Urine Creatinine Coronavirus (PCR) Crossmatch 02/12/21 02/12/21 02/12/21 10:45 12:04 17:19 WBC RBC Hgb Hct MCV MCH MCHC RDW Plt Count Lymph % (Auto) Lymph # (Auto) Seg Neutrophils % Seg Neuts % (Manual) Lymphocytes % (Manual) Monocytes % (Manual) Nucleated RBC % Seg Neutrophils # Seg Neutrophils # Man Lymphocytes # (Manual) Monocytes # (Manual) Eosinophils # (Manual) INR D-Dimer ABG pH POC ABG pCO2 POC ABG pO2 ABG pO2 ABG HCO3 ABG O2 Saturation ABG Base Excess ABG Hemoglobin ABG Oxyhemoglobin ABG Sodium ABG Potassium ABG Chloride ABG Glucose Oxyhemoglobin Carboxyhemoglobin Sodium Potassium Chloride Carbon Dioxide BUN Creatinine Glucose POC Glucose 165 H 165 H Hemoglobin A1c Lactic Acid Calcium Phosphorus Magnesium Ferritin Total Bilirubin AST ALT Lactate Dehydrogenase C-Reactive Protein Albumin Triglycerides 182 H Arterial Blood Glucose Arterial Blood Ionized Calcium Urine Creatinine Coronavirus (PCR) Crossmatch 02/12/21 02/13/21 02/13/21 23:18 05:00 05:36 WBC RBC Hgb Hct MCV MCH MCHC RDW Plt Count Lymph % (Auto) Lymph # (Auto) Seg Neutrophils % Seg Neuts % (Manual) Lymphocytes % (Manual) Monocytes % (Manual) Nucleated RBC % Seg Neutrophils # Seg Neutrophils # Man Lymphocytes # (Manual) Monocytes # (Manual) Eosinophils # (Manual) INR D-Dimer ABG pH POC ABG pCO2 60.8 H POC ABG pO2 76.4 L ABG pO2 ABG HCO3 ABG O2 Saturation ABG Base Excess ABG Hemoglobin 7.4 L ABG Oxyhemoglobin ABG Sodium 133.2 L ABG Potassium 3.3 L ABG Chloride 96.0 L ABG Glucose 168 H Oxyhemoglobin Carboxyhemoglobin Sodium Potassium Chloride Carbon Dioxide BUN Creatinine Glucose POC Glucose 163 H 151 H Hemoglobin A1c Lactic Acid Calcium Phosphorus Magnesium Ferritin Total Bilirubin AST ALT Lactate Dehydrogenase C-Reactive Protein Albumin Triglycerides Arterial Blood Glucose 168 H Arterial Blood Ionized Calcium 4.3 L Urine Creatinine Coronavirus (PCR) Crossmatch 02/13/21 02/13/21 02/13/21 06:40 06:40 06:40 WBC RBC 2.19 L Hgb 7.0 L Hct 20.8 L MCV 95 H MCH MCHC RDW Plt Count Lymph % (Auto) Lymph # (Auto) Seg Neutrophils % Seg Neuts % (Manual) Lymphocytes % (Manual) Monocytes % (Manual) Nucleated RBC % Seg Neutrophils # Seg Neutrophils # Man Lymphocytes # (Manual) Monocytes # (Manual) Eosinophils # (Manual) INR D-Dimer ABG pH POC ABG pCO2 POC ABG pO2 ABG pO2 ABG HCO3 ABG O2 Saturation ABG Base Excess ABG Hemoglobin ABG Oxyhemoglobin ABG Sodium ABG Potassium ABG Chloride ABG Glucose Oxyhemoglobin Carboxyhemoglobin Sodium 135 L Potassium 3.4 L Chloride 93.0 L Carbon Dioxide 32 H BUN 46 H Creatinine 5.8 H Glucose 148 H POC Glucose Hemoglobin A1c Lactic Acid Calcium 7.9 L Phosphorus Magnesium Ferritin Total Bilirubin AST ALT Lactate Dehydrogenase C-Reactive Protein 16.80 H Albumin Triglycerides Arterial Blood Glucose Arterial Blood Ionized Calcium Urine Creatinine Coronavirus (PCR) Crossmatch 02/13/21 02/13/21 02/13/21 06:40 07:38 07:38 WBC RBC Hgb Hct MCV MCH MCHC RDW Plt Count Lymph % (Auto) Lymph # (Auto) Seg Neutrophils % Seg Neuts % (Manual) Lymphocytes % (Manual) Monocytes % (Manual) Nucleated RBC % Seg Neutrophils # Seg Neutrophils # Man Lymphocytes # (Manual) Monocytes # (Manual) Eosinophils # (Manual) INR D-Dimer 1722.16 H ABG pH POC ABG pCO2 POC ABG pO2 ABG pO2 ABG HCO3 ABG O2 Saturation ABG Base Excess ABG Hemoglobin ABG Oxyhemoglobin ABG Sodium ABG Potassium ABG Chloride ABG Glucose Oxyhemoglobin Carboxyhemoglobin Sodium Potassium Chloride Carbon Dioxide BUN Creatinine Glucose POC Glucose Hemoglobin A1c Lactic Acid Calcium Phosphorus Magnesium 1.60 L Ferritin 976.5 H Total Bilirubin AST ALT Lactate Dehydrogenase C-Reactive Protein Albumin Triglycerides Arterial Blood Glucose Arterial Blood Ionized Calcium Urine Creatinine Coronavirus (PCR) Crossmatch 02/13/21 02/13/21 02/13/21 12:24 16:57 23:32 WBC RBC Hgb Hct MCV MCH MCHC RDW Plt Count Lymph % (Auto) Lymph # (Auto) Seg Neutrophils % Seg Neuts % (Manual) Lymphocytes % (Manual) Monocytes % (Manual) Nucleated RBC % Seg Neutrophils # Seg Neutrophils # Man Lymphocytes # (Manual) Monocytes # (Manual) Eosinophils # (Manual) INR D-Dimer ABG pH POC ABG pCO2 POC ABG pO2 ABG pO2 ABG HCO3 ABG O2 Saturation ABG Base Excess ABG Hemoglobin ABG Oxyhemoglobin ABG Sodium ABG Potassium ABG Chloride ABG Glucose Oxyhemoglobin Carboxyhemoglobin Sodium Potassium Chloride Carbon Dioxide BUN Creatinine Glucose POC Glucose 141 H 156 H 161 H Hemoglobin A1c Lactic Acid Calcium Phosphorus Magnesium Ferritin Total Bilirubin AST ALT Lactate Dehydrogenase C-Reactive Protein Albumin Triglycerides Arterial Blood Glucose Arterial Blood Ionized Calcium Urine Creatinine Coronavirus (PCR) Crossmatch 02/14/21 02/14/21 02/14/21 04:00 05:41 11:00 WBC RBC 2.14 L Hgb 6.9 L Hct 20.7 L MCV 97 H MCH 33 H MCHC RDW Plt Count Lymph % (Auto) Lymph # (Auto) Seg Neutrophils % Seg Neuts % (Manual) Lymphocytes % (Manual) Monocytes % (Manual) Nucleated RBC % Seg Neutrophils # Seg Neutrophils # Man Lymphocytes # (Manual) Monocytes # (Manual) Eosinophils # (Manual) INR D-Dimer ABG pH POC ABG pCO2 POC ABG pO2 ABG pO2 ABG HCO3 ABG O2 Saturation ABG Base Excess ABG Hemoglobin ABG Oxyhemoglobin ABG Sodium ABG Potassium ABG Chloride ABG Glucose Oxyhemoglobin Carboxyhemoglobin Sodium Potassium Chloride Carbon Dioxide BUN Creatinine Glucose POC Glucose 143 H Hemoglobin A1c Lactic Acid Calcium Phosphorus Magnesium Ferritin Total Bilirubin AST ALT Lactate Dehydrogenase C-Reactive Protein Albumin Triglycerides Arterial Blood Glucose Arterial Blood Ionized Calcium Urine Creatinine Coronavirus (PCR) Crossmatch See Detail 02/14/21 02/14/21 02/14/21 11:51 18:08 23:41 WBC RBC Hgb Hct MCV MCH MCHC RDW Plt Count Lymph % (Auto) Lymph # (Auto) Seg Neutrophils % Seg Neuts % (Manual) Lymphocytes % (Manual) Monocytes % (Manual) Nucleated RBC % Seg Neutrophils # Seg Neutrophils # Man Lymphocytes # (Manual) Monocytes # (Manual) Eosinophils # (Manual) INR D-Dimer ABG pH POC ABG pCO2 POC ABG pO2 ABG pO2 ABG HCO3 ABG O2 Saturation ABG Base Excess ABG Hemoglobin ABG Oxyhemoglobin ABG Sodium ABG Potassium ABG Chloride ABG Glucose Oxyhemoglobin Carboxyhemoglobin Sodium Potassium Chloride Carbon Dioxide BUN Creatinine Glucose POC Glucose 113 H 123 H 120 H Hemoglobin A1c Lactic Acid Calcium Phosphorus Magnesium Ferritin Total Bilirubin AST ALT Lactate Dehydrogenase C-Reactive Protein Albumin Triglycerides Arterial Blood Glucose Arterial Blood Ionized Calcium Urine Creatinine Coronavirus (PCR) Crossmatch 02/14/21 02/15/21 02/15/21 Unknown 05:00 05:00 WBC RBC Hgb Hct MCV MCH MCHC RDW Plt Count Lymph % (Auto) Lymph # (Auto) Seg Neutrophils % Seg Neuts % (Manual) Lymphocytes % (Manual) Monocytes % (Manual) Nucleated RBC % Seg Neutrophils # Seg Neutrophils # Man Lymphocytes # (Manual) Monocytes # (Manual) Eosinophils # (Manual) INR D-Dimer ABG pH POC ABG pCO2 53.4 H POC ABG pO2 61.8 L ABG pO2 ABG HCO3 ABG O2 Saturation ABG Base Excess ABG Hemoglobin 7.7 L ABG Oxyhemoglobin 88.8 L ABG Sodium ABG Potassium ABG Chloride ABG Glucose 143 H Oxyhemoglobin Carboxyhemoglobin 1.6 H Sodium Potassium Chloride 96.9 L Carbon Dioxide 33 H 31 H BUN 40 H 38 H Creatinine 5.2 H 4.8 H Glucose 152 H 132 H POC Glucose Hemoglobin A1c Lactic Acid Calcium 7.9 L Phosphorus Magnesium Ferritin Total Bilirubin AST ALT Lactate Dehydrogenase C-Reactive Protein Albumin Triglycerides Arterial Blood Glucose 143 H Arterial Blood Ionized Calcium Urine Creatinine Coronavirus (PCR) Crossmatch 02/15/21 02/15/21 02/15/21 05:00 05:27 12:05 WBC RBC 2.30 L Hgb 7.1 L Hct 22.1 L MCV 96 H MCH MCHC RDW 15.7 H Plt Count Lymph % (Auto) 11.0 L Lymph # (Auto) 1.1 L Seg Neutrophils % 83.0 H Seg Neuts % (Manual) Lymphocytes % (Manual) Monocytes % (Manual) Nucleated RBC % Seg Neutrophils # 8.6 H Seg Neutrophils # Man Lymphocytes # (Manual) Monocytes # (Manual) Eosinophils # (Manual) INR D-Dimer ABG pH POC ABG pCO2 POC ABG pO2 ABG pO2 ABG HCO3 ABG O2 Saturation ABG Base Excess ABG Hemoglobin ABG Oxyhemoglobin ABG Sodium ABG Potassium ABG Chloride ABG Glucose Oxyhemoglobin Carboxyhemoglobin Sodium Potassium Chloride Carbon Dioxide BUN Creatinine Glucose POC Glucose 133 H 123 H Hemoglobin A1c Lactic Acid Calcium Phosphorus Magnesium Ferritin Total Bilirubin AST ALT Lactate Dehydrogenase C-Reactive Protein Albumin Triglycerides Arterial Blood Glucose Arterial Blood Ionized Calcium Urine Creatinine Coronavirus (PCR) Crossmatch 02/15/21 02/15/21 02/16/21 17:08 23:52 03:44 WBC RBC Hgb Hct MCV MCH MCHC RDW Plt Count Lymph % (Auto) Lymph # (Auto) Seg Neutrophils % Seg Neuts % (Manual) Lymphocytes % (Manual) Monocytes % (Manual) Nucleated RBC % Seg Neutrophils # Seg Neutrophils # Man Lymphocytes # (Manual) Monocytes # (Manual) Eosinophils # (Manual) INR D-Dimer ABG pH 7.307 L POC ABG pCO2 59.5 H POC ABG pO2 63.2 L ABG pO2 ABG HCO3 ABG O2 Saturation ABG Base Excess ABG Hemoglobin 9.3 L ABG Oxyhemoglobin ABG Sodium ABG Potassium ABG Chloride ABG Glucose 148 H Oxyhemoglobin Carboxyhemoglobin Sodium Potassium Chloride Carbon Dioxide BUN Creatinine Glucose POC Glucose 129 H 136 H Hemoglobin A1c Lactic Acid Calcium Phosphorus Magnesium Ferritin Total Bilirubin AST ALT Lactate Dehydrogenase C-Reactive Protein Albumin Triglycerides Arterial Blood Glucose 148 H Arterial Blood Ionized Calcium Urine Creatinine Coronavirus (PCR) Crossmatch 02/16/21 02/16/21 02/16/21 05:26 06:00 12:14 WBC RBC Hgb Hct MCV MCH MCHC RDW Plt Count Lymph % (Auto) Lymph # (Auto) Seg Neutrophils % Seg Neuts % (Manual) Lymphocytes % (Manual) Monocytes % (Manual) Nucleated RBC % Seg Neutrophils # Seg Neutrophils # Man Lymphocytes # (Manual) Monocytes # (Manual) Eosinophils # (Manual) INR D-Dimer ABG pH POC ABG pCO2 POC ABG pO2 ABG pO2 ABG HCO3 ABG O2 Saturation ABG Base Excess ABG Hemoglobin ABG Oxyhemoglobin ABG Sodium ABG Potassium ABG Chloride ABG Glucose Oxyhemoglobin Carboxyhemoglobin Sodium Potassium Chloride Carbon Dioxide BUN 52 H Creatinine 6.0 H Glucose 138 H POC Glucose 135 H 128 H Hemoglobin A1c Lactic Acid Calcium Phosphorus Magnesium Ferritin Total Bilirubin AST ALT Lactate Dehydrogenase C-Reactive Protein Albumin Triglycerides Arterial Blood Glucose Arterial Blood Ionized Calcium Urine Creatinine Coronavirus (PCR) Crossmatch 02/16/21 02/16/21 02/16/21 17:09 17:09 17:09 WBC RBC Hgb Hct MCV MCH MCHC RDW Plt Count Lymph % (Auto) Lymph # (Auto) Seg Neutrophils % Seg Neuts % (Manual) Lymphocytes % (Manual) Monocytes % (Manual) Nucleated RBC % Seg Neutrophils # Seg Neutrophils # Man Lymphocytes # (Manual) Monocytes # (Manual) Eosinophils # (Manual) INR D-Dimer 4256.08 H ABG pH POC ABG pCO2 POC ABG pO2 ABG pO2 ABG HCO3 ABG O2 Saturation ABG Base Excess ABG Hemoglobin ABG Oxyhemoglobin ABG Sodium ABG Potassium ABG Chloride ABG Glucose Oxyhemoglobin Carboxyhemoglobin Sodium Potassium Chloride Carbon Dioxide BUN Creatinine Glucose POC Glucose Hemoglobin A1c Lactic Acid Calcium Phosphorus Magnesium Ferritin 980.6 H Total Bilirubin AST ALT Lactate Dehydrogenase 441 H C-Reactive Protein 20.20 H Albumin Triglycerides Arterial Blood Glucose Arterial Blood Ionized Calcium Urine Creatinine Coronavirus (PCR) Crossmatch 02/16/21 02/16/21 02/16/21 17:25 23:16 Unknown WBC RBC 2.19 L Hgb 7.1 L Hct 21.3 L MCV 98 H MCH 33 H MCHC RDW 16.0 H Plt Count Lymph % (Auto) Lymph # (Auto) Seg Neutrophils % Seg Neuts % (Manual) 85.0 H Lymphocytes % (Manual) 6.0 L Monocytes % (Manual) Nucleated RBC % 4.0 H Seg Neutrophils # Seg Neutrophils # Man Lymphocytes # (Manual) 0.5 L Monocytes # (Manual) Eosinophils # (Manual) INR D-Dimer ABG pH POC ABG pCO2 POC ABG pO2 ABG pO2 ABG HCO3 ABG O2 Saturation ABG Base Excess ABG Hemoglobin ABG Oxyhemoglobin ABG Sodium ABG Potassium ABG Chloride ABG Glucose Oxyhemoglobin Carboxyhemoglobin Sodium Potassium Chloride Carbon Dioxide BUN Creatinine Glucose POC Glucose 146 H 150 H Hemoglobin A1c Lactic Acid Calcium Phosphorus Magnesium Ferritin Total Bilirubin AST ALT Lactate Dehydrogenase C-Reactive Protein Albumin Triglycerides Arterial Blood Glucose Arterial Blood Ionized Calcium Urine Creatinine Coronavirus (PCR) Crossmatch 02/17/21 02/17/21 02/17/21 04:00 04:14 04:14 WBC RBC Hgb Hct MCV MCH MCHC RDW Plt Count Lymph % (Auto) Lymph # (Auto) Seg Neutrophils % Seg Neuts % (Manual) Lymphocytes % (Manual) Monocytes % (Manual) Nucleated RBC % Seg Neutrophils # Seg Neutrophils # Man Lymphocytes # (Manual) Monocytes # (Manual) Eosinophils # (Manual) INR D-Dimer 3183.35 H ABG pH 7.293 L POC ABG pCO2 59.5 H POC ABG pO2 68.1 L ABG pO2 ABG HCO3 ABG O2 Saturation ABG Base Excess ABG Hemoglobin 7.7 L ABG Oxyhemoglobin ABG Sodium 133.4 L ABG Potassium ABG Chloride ABG Glucose 143 H Oxyhemoglobin Carboxyhemoglobin Sodium 136 L Potassium Chloride 97.3 L Carbon Dioxide BUN 49 H Creatinine 5.3 H Glucose 139 H POC Glucose Hemoglobin A1c Lactic Acid Calcium Phosphorus Magnesium Ferritin Total Bilirubin AST ALT Lactate Dehydrogenase C-Reactive Protein Albumin Triglycerides Arterial Blood Glucose 143 H Arterial Blood Ionized Calcium Urine Creatinine Coronavirus (PCR) Crossmatch 02/17/21 02/17/21 02/17/21 04:14 04:14 04:14 WBC RBC 2.14 L Hgb 6.9 L Hct 21.0 L MCV 98 H MCH MCHC RDW 15.8 H Plt Count Lymph % (Auto) Lymph # (Auto) Seg Neutrophils % Seg Neuts % (Manual) Lymphocytes % (Manual) Monocytes % (Manual) Nucleated RBC % Seg Neutrophils # Seg Neutrophils # Man Lymphocytes # (Manual) Monocytes # (Manual) Eosinophils # (Manual) INR D-Dimer ABG pH POC ABG pCO2 POC ABG pO2 ABG pO2 ABG HCO3 ABG O2 Saturation ABG Base Excess ABG Hemoglobin ABG Oxyhemoglobin ABG Sodium ABG Potassium ABG Chloride ABG Glucose Oxyhemoglobin Carboxyhemoglobin Sodium Potassium Chloride Carbon Dioxide BUN Creatinine Glucose POC Glucose Hemoglobin A1c Lactic Acid Calcium Phosphorus Magnesium Ferritin 894.0 H Total Bilirubin AST ALT Lactate Dehydrogenase 399 H C-Reactive Protein 22.10 H Albumin Triglycerides Arterial Blood Glucose Arterial Blood Ionized Calcium Urine Creatinine Coronavirus (PCR) Crossmatch 02/17/21 02/17/21 02/17/21 06:06 07:45 12:25 WBC RBC Hgb 7.6 L Hct 22.8 L MCV MCH MCHC RDW Plt Count Lymph % (Auto) Lymph # (Auto) Seg Neutrophils % Seg Neuts % (Manual) Lymphocytes % (Manual) Monocytes % (Manual) Nucleated RBC % Seg Neutrophils # Seg Neutrophils # Man Lymphocytes # (Manual) Monocytes # (Manual) Eosinophils # (Manual) INR D-Dimer ABG pH POC ABG pCO2 POC ABG pO2 ABG pO2 ABG HCO3 ABG O2 Saturation ABG Base Excess ABG Hemoglobin ABG Oxyhemoglobin ABG Sodium ABG Potassium ABG Chloride ABG Glucose Oxyhemoglobin Carboxyhemoglobin Sodium Potassium Chloride Carbon Dioxide BUN Creatinine Glucose POC Glucose 134 H Hemoglobin A1c Lactic Acid Calcium Phosphorus Magnesium Ferritin Total Bilirubin AST ALT Lactate Dehydrogenase C-Reactive Protein Albumin Triglycerides Arterial Blood Glucose Arterial Blood Ionized Calcium Urine Creatinine Coronavirus (PCR) Crossmatch See Detail 02/17/21 02/17/21 02/17/21 12:35 17:56 23:34 WBC RBC Hgb Hct MCV MCH MCHC RDW Plt Count Lymph % (Auto) Lymph # (Auto) Seg Neutrophils % Seg Neuts % (Manual) Lymphocytes % (Manual) Monocytes % (Manual) Nucleated RBC % Seg Neutrophils # Seg Neutrophils # Man Lymphocytes # (Manual) Monocytes # (Manual) Eosinophils # (Manual) INR D-Dimer ABG pH POC ABG pCO2 POC ABG pO2 ABG pO2 ABG HCO3 ABG O2 Saturation ABG Base Excess ABG Hemoglobin ABG Oxyhemoglobin ABG Sodium ABG Potassium ABG Chloride ABG Glucose Oxyhemoglobin Carboxyhemoglobin Sodium Potassium Chloride Carbon Dioxide BUN Creatinine Glucose POC Glucose 114 H 128 H 120 H Hemoglobin A1c Lactic Acid Calcium Phosphorus Magnesium Ferritin Total Bilirubin AST ALT Lactate Dehydrogenase C-Reactive Protein Albumin Triglycerides Arterial Blood Glucose Arterial Blood Ionized Calcium Urine Creatinine Coronavirus (PCR) Crossmatch 02/18/21 02/18/21 02/18/21 04:03 04:55 05:02 WBC RBC 2.40 L Hgb 7.5 L Hct 23.1 L MCV 96 H MCH MCHC RDW 16.8 H Plt Count Lymph % (Auto) Lymph # (Auto) Seg Neutrophils % Seg Neuts % (Manual) Lymphocytes % (Manual) Monocytes % (Manual) Nucleated RBC % Seg Neutrophils # Seg Neutrophils # Man Lymphocytes # (Manual) Monocytes # (Manual) Eosinophils # (Manual) INR D-Dimer ABG pH 7.219 L POC ABG pCO2 58.7 H POC ABG pO2 64.2 L ABG pO2 ABG HCO3 ABG O2 Saturation ABG Base Excess ABG Hemoglobin ABG Oxyhemoglobin ABG Sodium 130.5 L ABG Potassium ABG Chloride ABG Glucose 147 H Oxyhemoglobin Carboxyhemoglobin Sodium 134 L Potassium Chloride 97.9 L Carbon Dioxide BUN 64 H Creatinine 6.5 H Glucose 135 H POC Glucose Hemoglobin A1c Lactic Acid Calcium 8.0 L Phosphorus Magnesium Ferritin Total Bilirubin AST ALT Lactate Dehydrogenase C-Reactive Protein Albumin Triglycerides Arterial Blood Glucose 147 H Arterial Blood Ionized Calcium Urine Creatinine Coronavirus (PCR) Crossmatch 02/18/21 02/18/21 02/18/21 05:27 10:00 11:51 WBC RBC Hgb Hct MCV MCH MCHC RDW Plt Count Lymph % (Auto) Lymph # (Auto) Seg Neutrophils % Seg Neuts % (Manual) Lymphocytes % (Manual) Monocytes % (Manual) Nucleated RBC % Seg Neutrophils # Seg Neutrophils # Man Lymphocytes # (Manual) Monocytes # (Manual) Eosinophils # (Manual) INR D-Dimer ABG pH POC ABG pCO2 POC ABG pO2 ABG pO2 ABG HCO3 ABG O2 Saturation ABG Base Excess ABG Hemoglobin ABG Oxyhemoglobin ABG Sodium ABG Potassium ABG Chloride ABG Glucose Oxyhemoglobin Carboxyhemoglobin Sodium Potassium Chloride Carbon Dioxide BUN Creatinine Glucose POC Glucose 130 H 123 H Hemoglobin A1c Lactic Acid Calcium Phosphorus Magnesium Ferritin Total Bilirubin AST ALT Lactate Dehydrogenase C-Reactive Protein Albumin Triglycerides Arterial Blood Glucose Arterial Blood Ionized Calcium Urine Creatinine Coronavirus (PCR) Positive A Crossmatch 02/18/21 02/18/21 02/19/21 18:10 23:35 05:00 WBC RBC Hgb Hct MCV MCH MCHC RDW Plt Count Lymph % (Auto) Lymph # (Auto) Seg Neutrophils % Seg Neuts % (Manual) Lymphocytes % (Manual) Monocytes % (Manual) Nucleated RBC % Seg Neutrophils # Seg Neutrophils # Man Lymphocytes # (Manual) Monocytes # (Manual) Eosinophils # (Manual) INR D-Dimer ABG pH 7.232 L POC ABG pCO2 64.3 H POC ABG pO2 ABG pO2 ABG HCO3 ABG O2 Saturation ABG Base Excess ABG Hemoglobin 8.1 L ABG Oxyhemoglobin ABG Sodium 133.5 L ABG Potassium ABG Chloride ABG Glucose 148 H Oxyhemoglobin Carboxyhemoglobin 1.6 H Sodium Potassium Chloride Carbon Dioxide BUN Creatinine Glucose POC Glucose 123 H 137 H Hemoglobin A1c Lactic Acid Calcium Phosphorus Magnesium Ferritin Total Bilirubin AST ALT Lactate Dehydrogenase C-Reactive Protein Albumin Triglycerides Arterial Blood Glucose 148 H Arterial Blood Ionized Calcium Urine Creatinine Coronavirus (PCR) Crossmatch 02/19/21 02/19/21 02/19/21 05:12 05:45 05:45 WBC RBC Hgb Hct MCV MCH MCHC RDW Plt Count Lymph % (Auto) Lymph # (Auto) Seg Neutrophils % Seg Neuts % (Manual) Lymphocytes % (Manual) Monocytes % (Manual) Nucleated RBC % Seg Neutrophils # Seg Neutrophils # Man Lymphocytes # (Manual) Monocytes # (Manual) Eosinophils # (Manual) INR D-Dimer 4840.82 H ABG pH POC ABG pCO2 POC ABG pO2 ABG pO2 ABG HCO3 ABG O2 Saturation ABG Base Excess ABG Hemoglobin ABG Oxyhemoglobin ABG Sodium ABG Potassium ABG Chloride ABG Glucose Oxyhemoglobin Carboxyhemoglobin Sodium 135 L Potassium Chloride 97.8 L Carbon Dioxide BUN 58 H Creatinine 5.6 H Glucose 140 H POC Glucose 134 H Hemoglobin A1c Lactic Acid Calcium Phosphorus Magnesium Ferritin Total Bilirubin AST ALT Lactate Dehydrogenase 345 H C-Reactive Protein 15.20 H Albumin Triglycerides 195 H Arterial Blood Glucose Arterial Blood Ionized Calcium Urine Creatinine Coronavirus (PCR) Crossmatch 02/19/21 02/19/21 02/19/21 05:45 12:00 17:48 WBC RBC Hgb Hct MCV MCH MCHC RDW Plt Count Lymph % (Auto) Lymph # (Auto) Seg Neutrophils % Seg Neuts % (Manual) Lymphocytes % (Manual) Monocytes % (Manual) Nucleated RBC % Seg Neutrophils # Seg Neutrophils # Man Lymphocytes # (Manual) Monocytes # (Manual) Eosinophils # (Manual) INR D-Dimer ABG pH POC ABG pCO2 POC ABG pO2 ABG pO2 ABG HCO3 ABG O2 Saturation ABG Base Excess ABG Hemoglobin ABG Oxyhemoglobin ABG Sodium ABG Potassium ABG Chloride ABG Glucose Oxyhemoglobin Carboxyhemoglobin Sodium Potassium Chloride Carbon Dioxide BUN Creatinine Glucose POC Glucose 122 H 119 H Hemoglobin A1c Lactic Acid Calcium Phosphorus Magnesium Ferritin 951.8 H Total Bilirubin AST ALT Lactate Dehydrogenase C-Reactive Protein Albumin Triglycerides Arterial Blood Glucose Arterial Blood Ionized Calcium Urine Creatinine Coronavirus (PCR) Crossmatch 02/20/21 02/20/21 02/20/21 03:20 04:00 11:48 WBC RBC Hgb Hct MCV MCH MCHC RDW Plt Count Lymph % (Auto) Lymph # (Auto) Seg Neutrophils % Seg Neuts % (Manual) Lymphocytes % (Manual) Monocytes % (Manual) Nucleated RBC % Seg Neutrophils # Seg Neutrophils # Man Lymphocytes # (Manual) Monocytes # (Manual) Eosinophils # (Manual) INR D-Dimer ABG pH 7.276 L POC ABG pCO2 57.3 H POC ABG pO2 71.0 L ABG pO2 ABG HCO3 ABG O2 Saturation ABG Base Excess ABG Hemoglobin 8.2 L ABG Oxyhemoglobin 91.9 L ABG Sodium 128.1 L ABG Potassium 4.8 H ABG Chloride ABG Glucose Oxyhemoglobin Carboxyhemoglobin 1.6 H Sodium 136 L Potassium Chloride Carbon Dioxide BUN 69 H Creatinine 6.4 H Glucose POC Glucose 131 H Hemoglobin A1c Lactic Acid Calcium 8.1 L Phosphorus Magnesium Ferritin Total Bilirubin AST ALT Lactate Dehydrogenase C-Reactive Protein Albumin Triglycerides Arterial Blood Glucose Arterial Blood Ionized Calcium 4.5 L Urine Creatinine Coronavirus (PCR) Crossmatch 02/20/21 02/20/21 02/21/21 18:05 23:28 02:53 WBC RBC Hgb Hct MCV MCH MCHC RDW Plt Count Lymph % (Auto) Lymph # (Auto) Seg Neutrophils % Seg Neuts % (Manual) Lymphocytes % (Manual) Monocytes % (Manual) Nucleated RBC % Seg Neutrophils # Seg Neutrophils # Man Lymphocytes # (Manual) Monocytes # (Manual) Eosinophils # (Manual) INR D-Dimer ABG pH 7.288 L POC ABG pCO2 52.7 H POC ABG pO2 81.5 L ABG pO2 ABG HCO3 ABG O2 Saturation ABG Base Excess ABG Hemoglobin 8.5 L ABG Oxyhemoglobin 93.6 L ABG Sodium 132.5 L ABG Potassium 4.6 H ABG Chloride ABG Glucose 106 H Oxyhemoglobin Carboxyhemoglobin 1.6 H Sodium Potassium Chloride Carbon Dioxide BUN Creatinine Glucose POC Glucose 114 H 118 H Hemoglobin A1c Lactic Acid Calcium Phosphorus Magnesium Ferritin Total Bilirubin AST ALT Lactate Dehydrogenase C-Reactive Protein Albumin Triglycerides Arterial Blood Glucose 106 H Arterial Blood Ionized Calcium 4.4 L Urine Creatinine Coronavirus (PCR) Crossmatch 02/21/21 02/21/21 02/21/21 05:29 11:42 16:35 WBC RBC Hgb Hct MCV MCH MCHC RDW Plt Count Lymph % (Auto) Lymph # (Auto) Seg Neutrophils % Seg Neuts % (Manual) Lymphocytes % (Manual) Monocytes % (Manual) Nucleated RBC % Seg Neutrophils # Seg Neutrophils # Man Lymphocytes # (Manual) Monocytes # (Manual) Eosinophils # (Manual) INR D-Dimer ABG pH POC ABG pCO2 POC ABG pO2 ABG pO2 ABG HCO3 ABG O2 Saturation ABG Base Excess ABG Hemoglobin ABG Oxyhemoglobin ABG Sodium ABG Potassium ABG Chloride ABG Glucose Oxyhemoglobin Carboxyhemoglobin Sodium Potassium 5.6 H Chloride 97.6 L Carbon Dioxide BUN 68 H Creatinine 5.7 H Glucose 160 H POC Glucose 111 H 131 H Hemoglobin A1c Lactic Acid Calcium 8.0 L Phosphorus 7.90 H Magnesium 2.60 H Ferritin Total Bilirubin AST ALT Lactate Dehydrogenase C-Reactive Protein Albumin Triglycerides Arterial Blood Glucose Arterial Blood Ionized Calcium Urine Creatinine Coronavirus (PCR) Crossmatch 02/21/21 02/22/21 02/22/21 17:17 00:04 04:22 WBC RBC Hgb Hct MCV MCH MCHC RDW Plt Count Lymph % (Auto) Lymph # (Auto) Seg Neutrophils % Seg Neuts % (Manual) Lymphocytes % (Manual) Monocytes % (Manual) Nucleated RBC % Seg Neutrophils # Seg Neutrophils # Man Lymphocytes # (Manual) Monocytes # (Manual) Eosinophils # (Manual) INR D-Dimer ABG pH 7.250 L POC ABG pCO2 60.1 H POC ABG pO2 57.6 L ABG pO2 ABG HCO3 ABG O2 Saturation ABG Base Excess ABG Hemoglobin 8.8 L ABG Oxyhemoglobin 87.0 L ABG Sodium 133.4 L ABG Potassium 5.1 H ABG Chloride ABG Glucose 124 H Oxyhemoglobin Carboxyhemoglobin Sodium Potassium Chloride Carbon Dioxide BUN Creatinine Glucose POC Glucose 135 H 121 H Hemoglobin A1c Lactic Acid Calcium Phosphorus Magnesium Ferritin Total Bilirubin AST ALT Lactate Dehydrogenase C-Reactive Protein Albumin Triglycerides Arterial Blood Glucose 124 H Arterial Blood Ionized Calcium Urine Creatinine Coronavirus (PCR) Crossmatch 02/22/21 02/22/21 02/22/21 05:33 09:41 09:41 WBC 13.2 H RBC 2.35 L Hgb 7.5 L Hct 22.7 L MCV 96 H MCH MCHC RDW 17.0 H Plt Count Lymph % (Auto) Lymph # (Auto) Seg Neutrophils % Seg Neuts % (Manual) 93.0 H Lymphocytes % (Manual) 4.0 L Monocytes % (Manual) Nucleated RBC % 1.0 H Seg Neutrophils # Seg Neutrophils # Man 12.3 H Lymphocytes # (Manual) 0.5 L Monocytes # (Manual) Eosinophils # (Manual) INR D-Dimer ABG pH POC ABG pCO2 POC ABG pO2 ABG pO2 ABG HCO3 ABG O2 Saturation ABG Base Excess ABG Hemoglobin ABG Oxyhemoglobin ABG Sodium ABG Potassium ABG Chloride ABG Glucose Oxyhemoglobin Carboxyhemoglobin Sodium Potassium 5.4 H Chloride Carbon Dioxide BUN 61 H Creatinine 5.5 H Glucose 117 H POC Glucose 114 H Hemoglobin A1c Lactic Acid Calcium 8.3 L Phosphorus Magnesium Ferritin Total Bilirubin AST ALT Lactate Dehydrogenase C-Reactive Protein Albumin Triglycerides Arterial Blood Glucose Arterial Blood Ionized Calcium Urine Creatinine Coronavirus (PCR) Crossmatch 02/22/21 02/22/21 02/23/21 12:08 17:06 04:00 WBC RBC Hgb Hct MCV MCH MCHC RDW Plt Count Lymph % (Auto) Lymph # (Auto) Seg Neutrophils % Seg Neuts % (Manual) Lymphocytes % (Manual) Monocytes % (Manual) Nucleated RBC % Seg Neutrophils # Seg Neutrophils # Man Lymphocytes # (Manual) Monocytes # (Manual) Eosinophils # (Manual) INR D-Dimer ABG pH 7.246 L POC ABG pCO2 POC ABG pO2 ABG pO2 119.4 H ABG HCO3 26.6 H ABG O2 Saturation ABG Base Excess ABG Hemoglobin 8.8 L ABG Oxyhemoglobin ABG Sodium ABG Potassium ABG Chloride ABG Glucose Oxyhemoglobin Carboxyhemoglobin Sodium Potassium Chloride Carbon Dioxide BUN Creatinine Glucose POC Glucose 133 H 114 H Hemoglobin A1c Lactic Acid Calcium Phosphorus Magnesium Ferritin Total Bilirubin AST ALT Lactate Dehydrogenase C-Reactive Protein Albumin Triglycerides Arterial Blood Glucose Arterial Blood Ionized Calcium Urine Creatinine Coronavirus (PCR) Crossmatch 02/23/21 02/23/21 02/24/21 06:20 11:42 03:43 WBC RBC Hgb Hct MCV MCH MCHC RDW Plt Count Lymph % (Auto) Lymph # (Auto) Seg Neutrophils % Seg Neuts % (Manual) Lymphocytes % (Manual) Monocytes % (Manual) Nucleated RBC % Seg Neutrophils # Seg Neutrophils # Man Lymphocytes # (Manual) Monocytes # (Manual) Eosinophils # (Manual) INR D-Dimer ABG pH 7.287 L POC ABG pCO2 54.7 H POC ABG pO2 ABG pO2 ABG HCO3 ABG O2 Saturation ABG Base Excess ABG Hemoglobin 8.5 L ABG Oxyhemoglobin ABG Sodium 135.6 L ABG Potassium ABG Chloride ABG Glucose 117 H Oxyhemoglobin Carboxyhemoglobin Sodium Potassium Chloride 97.6 L Carbon Dioxide BUN 79 H Creatinine 6.2 H Glucose POC Glucose 108 H Hemoglobin A1c Lactic Acid Calcium 8.3 L Phosphorus Magnesium Ferritin Total Bilirubin AST ALT Lactate Dehydrogenase C-Reactive Protein Albumin Triglycerides Arterial Blood Glucose 117 H Arterial Blood Ionized Calcium Urine Creatinine Coronavirus (PCR) Crossmatch 02/24/21 02/24/21 02/24/21 04:25 04:25 04:25 WBC 11.5 H RBC 2.47 L Hgb 7.7 L Hct 23.5 L MCV 95 H MCH MCHC RDW 16.7 H Plt Count Lymph % (Auto) Lymph # (Auto) Seg Neutrophils % Seg Neuts % (Manual) 82.0 H Lymphocytes % (Manual) 3.0 L Monocytes % (Manual) 11.0 H Nucleated RBC % Seg Neutrophils # Seg Neutrophils # Man 9.4 H Lymphocytes # (Manual) 0.3 L Monocytes # (Manual) 1.3 H Eosinophils # (Manual) INR D-Dimer 4695.21 H ABG pH POC ABG pCO2 POC ABG pO2 ABG pO2 ABG HCO3 ABG O2 Saturation ABG Base Excess ABG Hemoglobin ABG Oxyhemoglobin ABG Sodium ABG Potassium ABG Chloride ABG Glucose Oxyhemoglobin Carboxyhemoglobin Sodium Potassium Chloride Carbon Dioxide BUN 68 H Creatinine 4.9 H Glucose 113 H POC Glucose Hemoglobin A1c Lactic Acid Calcium Phosphorus Magnesium Ferritin Total Bilirubin AST ALT Lactate Dehydrogenase C-Reactive Protein 7.20 H Albumin Triglycerides Arterial Blood Glucose Arterial Blood Ionized Calcium Urine Creatinine Coronavirus (PCR) Crossmatch 02/24/21 02/24/21 02/24/21 04:25 05:01 11:12 WBC RBC Hgb Hct MCV MCH MCHC RDW Plt Count Lymph % (Auto) Lymph # (Auto) Seg Neutrophils % Seg Neuts % (Manual) Lymphocytes % (Manual) Monocytes % (Manual) Nucleated RBC % Seg Neutrophils # Seg Neutrophils # Man Lymphocytes # (Manual) Monocytes # (Manual) Eosinophils # (Manual) INR D-Dimer ABG pH POC ABG pCO2 POC ABG pO2 ABG pO2 ABG HCO3 ABG O2 Saturation ABG Base Excess ABG Hemoglobin ABG Oxyhemoglobin ABG Sodium ABG Potassium ABG Chloride ABG Glucose Oxyhemoglobin Carboxyhemoglobin Sodium Potassium Chloride Carbon Dioxide BUN Creatinine Glucose POC Glucose 116 H 112 H Hemoglobin A1c Lactic Acid Calcium Phosphorus Magnesium Ferritin 1116.0 H Total Bilirubin AST ALT Lactate Dehydrogenase C-Reactive Protein Albumin Triglycerides Arterial Blood Glucose Arterial Blood Ionized Calcium Urine Creatinine Coronavirus (PCR) Crossmatch 02/24/21 02/25/21 02/25/21 18:11 03:42 05:58 WBC RBC Hgb Hct MCV MCH MCHC RDW Plt Count Lymph % (Auto) Lymph # (Auto) Seg Neutrophils % Seg Neuts % (Manual) Lymphocytes % (Manual) Monocytes % (Manual) Nucleated RBC % Seg Neutrophils # Seg Neutrophils # Man Lymphocytes # (Manual) Monocytes # (Manual) Eosinophils # (Manual) INR D-Dimer ABG pH 7.287 L POC ABG pCO2 58.2 H POC ABG pO2 ABG pO2 ABG HCO3 ABG O2 Saturation ABG Base Excess ABG Hemoglobin 8.4 L ABG Oxyhemoglobin 93.7 L ABG Sodium ABG Potassium ABG Chloride ABG Glucose 104 H Oxyhemoglobin Carboxyhemoglobin Sodium Potassium Chloride Carbon Dioxide BUN Creatinine Glucose POC Glucose 109 H 109 H Hemoglobin A1c Lactic Acid Calcium Phosphorus Magnesium Ferritin Total Bilirubin AST ALT Lactate Dehydrogenase C-Reactive Protein Albumin Triglycerides Arterial Blood Glucose 104 H Arterial Blood Ionized Calcium 4.5 L Urine Creatinine Coronavirus (PCR) Crossmatch
--- NOTE | 2021-02-25 08:35 | Electroencephalogram Report ---
Electroencephalogram EEG Date of exam: 02/24/21 History: unresponsivness/Encephalopathy Impression: finding is suggestive of diffuse slowing in back ground R-4-5 , L3-4 with no clear epileptiform discharges finding is suggestive of encephalopathy and or drug effect , possibility of toximetabolic etiology can not be excluded Left is slower than right side with possibility of a structural lesion can not be excluded Clinical and radiological correlation is in order. Description: study performed using 10-20 system , with 21 scalpe electrode HV and FS not done back ground activity is 4-5 HZ on right side with slightly slower on left 3-4 HZ No epileptiform discharges is noted , no sleep is noted
[2021-02-25] MEDS: LANSOPRAZOLE 30 MG SOLUTAB FEEDTUBE SCH (09:36)
[2021-02-25] MEDS: fentaNYL 100 MCG/2 ML INJ IV PRN ×2 (09:36→10:25)
[2021-02-25] MEDS: dexmedeTOMIDine 1,000 MCG in SODIUM CHLORIDE 0.9% 250ML 250 ML IV SCH (10:30)
--- NOTE | 2021-02-25 12:16 | Progress Note ---
Assessment and Plan Assessment: Acute Hypoxic respiratory failure COVID-19 PNA Severe sepsis with septic shock Acute kidney injury secondary to ATN Hyperkalemia Hypernatremia DM2 on insulin Anemia Plan: Hemodialysis today for UF and clearance Initiated on HD on 02/03/21 S/P Right IJ Trialysis dialysis catheter placement Strict I&O's monitoring Renally dose medications Assess dialysis needs daily Monitor for renal recovery Subjective Date of service: 02/25/21 Principal diagnosis: DEISI Interval history: Patient not directly seen or examined due to being with active COVID-19 infection to limit/reduce risk of exposure and or transmission of the disease in this pandemic and due to limited PPE resources. Objective - Vital Signs Vital signs: Vital Signs - 12hr 02/25/21 02/25/21 02/25/21 00:52 01:00 02:00 Temperature Pulse Rate 107 H 104 H 107 H Pulse Rate [ From Monitor] Respiratory 34 H 36 H Rate Blood Pressure 128/66 130/68 127/70 O2 Sat by Pulse 94 93 90 Oximetry 02/25/21 02/25/21 02/25/21 03:00 04:00 05:00 Temperature 98.5 F Pulse Rate 107 H 105 H 108 H Pulse Rate [ 100 H From Monitor] Respiratory 36 H 34 H 39 H Rate Blood Pressure 127/70 127/70 127/70 O2 Sat by Pulse 99 97 92 Oximetry 02/25/21 02/25/21 02/25/21 05:30 06:00 07:00 Temperature Pulse Rate 103 H 109 H 108 H Pulse Rate [ From Monitor] Respiratory 37 H 39 H Rate Blood Pressure 114/59 115/60 116/59 O2 Sat by Pulse 95 94 96 Oximetry 02/25/21 02/25/21 02/25/21 08:00 08:06 08:28 Temperature 98.8 F Pulse Rate 110 H 106 H Pulse Rate [ From Monitor] Respiratory 39 H Rate Blood Pressure 114/59 114/59 O2 Sat by Pulse 93 95 Oximetry 02/25/21 02/25/21 02/25/21 09:00 10:00 10:25 Temperature Pulse Rate 110 H 111 H Pulse Rate [ From Monitor] Respiratory 40 H 40 H 42 H Rate Blood Pressure 111/60 113/63 O2 Sat by Pulse 91 93 Oximetry 02/25/21 11:00 Temperature Pulse Rate 109 H Pulse Rate [ From Monitor] Respiratory 38 H Rate Blood Pressure 99/60 O2 Sat by Pulse 93 Oximetry - Lab 02/24/21 04:25 02/24/21 04:25 Most recent lab results ABG pH 7.287 (7.320-7.450) L 02/25/21 03:42 ABG pCO2 62.7 mm Hg 02/23/21 04:00 ABG pO2 119.4 mm Hg (80.0-90.0) H 02/23/21 04:00 ABG HCO3 26.6 mmol/L (20.0-26.0) H 02/23/21 04:00 ABG O2 Saturation 95.4 (0-100) 02/25/21 03:42 Calcium 8.6 mg/dL (8.4-10.2) 02/24/21 04:25 Phosphorus 7.90 mg/dL (2.5-4.5) H 02/21/21 16:35 Magnesium 2.60 mg/dL (1.7-2.3) H 02/21/21 16:35 Urine Creatinine 53.0 mg/dL (0.1-20.0) H 01/30/21 12:00 Urine Sodium 28 mmol/L 01/22/21 22:39 Medications & Allergies - Medications Allergies/Adverse Reactions: Allergies No Known Allergies Allergy (Unverified 03/12/20 13:41) Home Medications: Home Medications Medication Instructions Recorded Confirmed Last Taken Type Insulin NPH/Regular [Novolin 70/30] 18 unit SUB-Q TIDAC #1 vial 03/12/20 Unknown Rx Syringe-Needle,Insulin,0.5 ml 1 box MC TID #1 box 03/12/20 Unknown Rx [Insulin Syringe/Needle 0.5 ML] Active Medications: Generic Name Dose Route Start Last Admin Trade Name Freq PRN Reason Stop Dose Admin Acetaminophen 650 mg 01/24/21 12:58 02/15/21 18:06 Acetaminophen 325 Mg/10.15 Ml Oral Liqd Unit Dose FEEDTUBE 650 mg Q6H PRN Administration Pain, Mild (1-3) Lipase/Protease/Amylase 1 each 01/26/21 14:25 Lipase 10,500/Protease 25,000/Amylase 43,750 (Units) Dr González FEEDTUBE PRN PRN For Clogged Feeding Tube Dextrose 50 ml 01/27/21 07:24 Dextrose 50% In Water (25gm) 50 Ml Syringe IV Q30MIN PRN Hypoglycemia Protocol Fentanyl 50 mcg 01/22/21 22:39 02/25/21 10:25 Fentanyl 100 Mcg/2 Ml Inj IV 50 mcg Q10MIN PRN Administration ANALGESIA Heparin Sodium (Porcine) 2,000 unit 02/11/21 09:38 02/21/21 21:25 Heparin 10,000 Units/10 Ml Vial IV 2,000 unit [place] PRN Administration hemodialysis Heparin Sodium (Porcine) 5,000 unit 02/19/21 14:00 02/25/21 05:09 Heparin 5,000 Unit/1 Ml Vial SUB-Q 5,000 unit Q8HR CECE Administration Fentanyl Citrate 2,000 mcg in 100 mls @ 6.124 mls/hr 01/22/21 23:00 02/24/21 19:02 Fentanyl Drip Premix IV 0 mcg/kg/hr TITR CECE 0 mls/hr Titration Protocol 1 MCG/KG/HR Propofol 1,000 mg in 100 mls @ 3.674 mls/hr 01/22/21 23:45 02/21/21 08:30 Diprivan 10 Mg/Ml IV 0 mcg/kg/min TITR CECE 0 mls/hr Titration Protocol 5 MCG/KG/MIN Norepinephrine 4 mg in 250 mls @ 7.5 mls/hr 01/28/21 14:00 02/22/21 18:27 Levophed Drip 4 Mg/Ns 250 Ml IV 0 mcg/min TITR CECE 0 mls/hr Titration Protocol 2 MCG/MIN Dexmedetomidine HCl 1,000 mcg/ 260 mls @ 6.368 mls/hr 01/30/21 20:00 02/25/21 10:30 Sodium Chloride IV 0.5 mcg/kg/hr TITRATE CECE 15.9 mls/hr Administration Protocol 0.2 MCG/KG/HR Sodium Chloride 100 mls @ 999 mls/hr 02/22/21 13:43 Nacl 0.9% IV [place] PRN Hypotension Lansoprazole 30 mg 02/18/21 10:00 02/25/21 09:36 Lansoprazole 30 Mg Solutab FEEDTUBE 30 mg QDAY CECE Administration Senna/Docusate Sodium 1 tab 02/25/21 10:00 02/25/21 11:26 Sennosides/Docusate Sodium 8.6/50 Mg Tab PO Not Given BID CECE Simple Syrup 15 ml 03/29/21 14:25 02/21/21 21:24 Simple Syrup 15 Ml FEEDTUBE 15 ml PRN PRN Administration Hypoglycemia Simple Syrup 30 ml 01/26/21 14:25 Simple Syrup 15 Ml FEEDTUBE PRN PRN Hypoglycemia Sodium Bicarbonate 325 mg 01/26/21 14:25 Sodium Bicarbonate 325 Mg Tab FEEDTUBE PRN PRN For Clogged Feeding Tube
[2021-02-25] MEDS: fentaNYL DRIP Premix 2,000 MCG/100 ML BAG IV SCH ×2 (13:29→21:57)
[2021-02-25] MEDS: ACETAMINOPHEN 325 MG/10.15 ML ORAL LIQD UNIT DOSE FEEDTUBE PRN (13:31)
[2021-02-25] MEDS ORDERED: MIDAZOLAM 2 MG/2 ML INJ ONE (14:14)
[2021-02-25] MEDS ORDERED: MIDAZOLAM 2 MG/2 ML INJ IV ONE (14:16)
--- NOTE | 2021-02-25 14:42 | XRay Report ---
CHEST - 1 VIEW INDICATION: hypoxia COMPARISON: 02/11/2021 FINDINGS: Support devices: Endotracheal tube, nasogastric tube and right venous catheter appear in good positi on. Heart: Stable cardiomediastinal silhouette. Lungs/pleura: Bilateral lung opacities which are most pronounced in the right lower lobe appears sta ble. No large pleural effusion or pneumothorax has developed. Additional findings: None. IMPRESSION: Unchanged exam. Signer Name: Curt Ayala Jr, MD Signed: 02/25/2021 2:37 PM Workstation Name: [id number]
--- NOTE | 2021-02-25 14:48 | Progress Note ---
Assessment and Plan Assessment and plan: This is a 60-year-old male with diabetes mellitus, hypertension, hyperlipidemia, chronic renal insufficiency who was admitted on 01/23 as a COVID-19 PUI with Sepsis, COVID-19 pneumonia, coag negative staph bacteremia, acute hypoxic respiratory failure, and acute kidney injury. Sepsis COVID-19 pneumonia Coag-neg Staph bacteremia Acute hypoxic respiratory failure Acute kidney injury, HD initiated 02/03 Anemia Diabetes mellitus Hypertension Hyperlipidemia Chronic renal insufficiency Elevated D-dimer -CCM, nephrology, infectious disease, GI , neurology consulted, appreciate recommendations -s/p Antibiotic therapy, remdesivir, Steroid therapy -COVID-19 PCR positive, Pneumonia on CXR -Mechanical ventilation, wean as tolerated -VAP bundle -HD per nephrology -S/p 4 units PRBC during stay -Trend BMP, CBC, COVID-19 inflammatory markers -Bilateral lower extremity and upper extremity Doppler ultrasound negative for DVT/SVT -SSI and Long-acting insulin -Accu-Cheks every 6 while on tube feedings -Hold home antihypertensive regimen and resume when appropriate -S/p vasopressor support -Blood pressure monitoring per protocol -S/p NaHCO3 gtt -02/17 CT head showed no acute intracranial abnormality, paranasal sinus disease -Bowel regimen -02/24 EEG finding consistent with encephalopathy and/or drug effect, possibility of toxic metabolic etiology cannot be excluded, possibility of structural lesion on the left side cannot be excluded given left being slightly slower than the right. -Sedation with fentanyl and Precedex DVT/GI prophylaxis: SCDs to bilateral lower extremities while in bed, PPI, heparin subq Dispo: ICU The high probability of a clinically significant, sudden or life threatening deterioration of the [multi] system(s) required my full and direct attention, intervention and personal management. The aggregate critical care time was [45] minutes. This time is in addition to time spent performing reported procedures but includes the following: [x] Data Review and interpretation [x] Patient assessment and monitoring of vital signs [x] Documentation [x] Medication orders and management History Interval history: This is a 60-year-old male with diabetes mellitus, hypertension, hyperlipidemia, chronic renal insufficiency presents to the emergency department on 01/23 with shortness of breath, fevers chills, loss of smell and taste and body aches for the past 3 days via EMS. Per EMS patient's oxygen saturation on room air was 50% and after being placed on nonrebreather it increased 75%. Upon arrival to the emergency department patient was being bagged by EMS. In the emergency room patient was intubated due to severe hypoxia, increased work of breathing and lethargy. Patient was sedated on propofol and fentanyl. Patient presented with fever, tachycardia, tachypnea and acute hypoxic respiratory failure with PNA on CXR meeting Sepsis criteria. Lab work in the emergency department revealed hyponatremia, hypokalemia, hypochloremia, elevated CR/BUN and CXR showed bilateral pneumonia. Patient was admitted to the hospital service as a COVID-19 PUI with consults to infectious disease, nephrology and critical care medicine. 01/24/2021: Patient is intubated and sedated, patient is positive for COVID-19 infection. ID was consulted and put on dexamethasone and remdesivir. Patient has DEISI and nephrology is following. Creatinine stable, patient is urinating. Discussed with nephrology and he is okay with remdesivir. Pulmonary critical care is following for his vent setting. PEEP of 8 and FiO2 of 85%. Patient was alert and off sedatives. 01/25/2021; patient is intubated and on mechanical ventilation. Continue with treatment of Covid. Nephrology and ID is following. Pulmonary is following for vent management 01/26: Remains on mechanical ventilation and [facility] increased his PEEP. [facility] has ordered Precedex for sedation. Possibly need to prone this p.m. No acute events reported overnight. This morning his D-dimer is greater than 10,000 and we have started him on Lovenox 120 mg daily. Nutrition has been consulted for initiation of tube feedings. Patient remains sedated on propofol 40 and fentanyl for the time my examination this morning. 01/27: Continue Lovenox, remdesivir and empiric antibiotics. Patient had a T-max of 101 overnight. The time of examination patient is on CMV 500/18/14/0.61. Kidney function slightly worsened. Sedated on fentanyl ground-level fall and Precedex. Nephrology has increased IV fluids to 100 ml/hr. Continue to trend BMP and CBC. Sedation vacation attempt by RN this AM. 01/28: Patient completed antibiotics today [facility] will paralyze patient and increase sedation. PICC line ordered for possible vasopressor therapy need. Patient's D-dimer remains greater than 10,000 and he still has hyperchloremia. Patient's kidney function has improved today. May need to prone the patient if no improvement in oxygenation is noted in the next 24 hours. [facility] with propofol, fentanyl and Precedex and is on assist control 500/18/16/0.80 hypoxic on ABG on 60% FiO2. 4: Patient was started on Nimbex yesterday and his ABG this morning showed respiratory acidosis with hypercapnia and his respiratory rate was increased. We will obtain a repeat ABG this afternoon. This morning patient is hypernatremic, hyperkalemic and hyperchloremic. His potassium has been corrected with the management and will obtain repeat BMP tomorrow. His kidney functions have remained stable and we will await nephrology's input. No acute events reported overnight. This morning the time my examination patient sedated with propofol, Precedex and fentanyl and paralyzed with Nimbex. He is on assist control 500/24/16 0.80. 01/30: This morning patient is hypokalemic again and was given Kayexalate. Patient has hypernatremia and hyper chloremia and his renal function is slightly worse after receiving Lasix yesterday. His D-dimer remains greater than 10,000 and he is still on a paralytic. Patient is sedated on Precedex, fentanyl, propofol. Mechanical ventilation settings seven-point /61/28. [facility] has decided to continue paralytics for 48 more hours and will attempt proning the patient. Increased free water flushes 300 cc every 4 hours. Patient states has restarted his antibiotics cefepime and vancomycin and recultured. 01/31/21 Hyperkalemia, Treated 02/01/21 Hyperkalemia, Treated 02/02: Patient's kidney function continues to worsen and a stat BMP this morning shows BUN/creatinine 20/6.1 and he remains hypocalcemic and hypernatremic, h ypokalemic and hypochloremic. Patient received 2 g of calcium gluconate and Kayexalate and his repeat potassium was 4.3 this afternoon. He remains antibiotic therapy and steroids. Nephrology has placed the patient on bicarb drip given metabolic acidosis and has decided to hold off hemodialysis till tomorrow.The time my examination patient is sedated on fentanyl, Precedex and on assist control 500/20/12/0.70. s/p paralytic. 02/03: Today patient's ABG shows respiratory acidosis however it is improving, hypernatremia, hyperchloremia, metabolic acidosis on BMP, worsening kidney function BUN/creatinine 130/9.2 with hyperphosphatemia. Patient received a Vas- Cath to his right IJ for initiation of dialysis. At the time of my examination patient remains sedated on fentanyl, propofol and Precedex with vasopressor support with Levophed at 2. 02/04: At the time of examination patient was on assist control tidal volume 500, rate 40, PEEP of 12, FiO2 85%. Patient had a T-max of 100.9 and infectious disease has stopped his vancomycin given negative MRSA. This afternoon patient respiked his temperature and was pancultured again. Patient was started on hemodialysis yesterday and will receive HD again today. Patient is sedated on Precedex, propofol, fentanyl and remains on Levophed. He is on assist control tidal volume 500, rate of 30, PEEP of 12, FiO2 of 85%. Patient still has some respiratory acidosis however his hypernatremia and hyperchloremia have improved and his metabolic acidosis has resolved. Patient will receive hemodialysis today 02/05: Patient continues to have low-grade fever temp this morning time examination he was on assist control tidal volume 500, and sedated on pro pofol/fentanyl/Precedex and is on Levophed. Hemodialysis per nephrology. Antibiotics per ID. Patient's blood culture from 02/04 grew gram-positive cocci in clusters in 1/2 bottles and he was started on vancomycin. 02/06: Patients ABG showed respiratory acidosis and the tracings were changed however a repeat ABG showed showed acidosis.[facility] will start a bicarb drip after giving 2 amps of bicarb push. Yesterday patient blood cultures grew gram- positive cocci and he was started on vancomycin. At the time my examination patient was on assist control tidal volume 550, rate 34, PEEP 16, FiO2 90% and sedated on fentanyl, Precedex, propofol elevated pressure support with Levophed. Bilateral lower extremity Doppler ultrasounds done yesterday showed no evidence of DVT/SVT. 02/07/2021; patient is still on the vent with PEEP of 16 and FiO2 of 90%, sedated with fentanyl Precedex and propofol. Patient still requiring Levophed. Patient was sedated yesterday and was given bicarb push. Blood culture grew gram-positive cocci in clusters and he is on vancomycin, will follow identification. 02/08/2021;patient is still on the vent with PEEP of 16 and FiO2 of 90%, sedated with fentanyl Precedex and propofol. Patient still requiring Levophed. Patient was sedated yesterday and was given bicarb push. Blood culture grew gram- positive cocci in clusters and he is on vancomycin, will follow identification. Patient is currently on dialysis. Patient is anemic transfuse if hemoglobin is below 7. 02/09: This morning patient has slight hypokalemia, hypochorlemia, hyponatremia and metabolic alkalosis. [facility] will continue bicarb gtt given that the patient does not have HD access at this time. We will replete the potassium and recheck BMP in the AM. We will type and cross in anticipation of PRBC transfusion. This morning he is sedated on Ativan, fentayl, and precedex. Will obtain a triglyceride level today in hopes to resume propofol. Patient is alkalotic and BMP however we will continue with bicarb drip per [facility] given that the patient does not have any access for hemodialysis. Anticipate replacing hemodialysis catheter tomorrow or Tuesday. The time my examination he is on AC TV 550, Ra te 34, PeeP 16, FiO2 .65. 02/10: A.m. labs still pending, [facility] plans to replace HD catheter tomorrow as the patient is still febrile however his fever curve is trending down, remains on a bicarb drip and on vancomycin. Today at the time my examination patient was sedated on Precedex, Ativan and fentanyl and he is on assist control tidal 11/04/1951, rate 34, PEEP 16, FiO2 65%. Overnight patient was hypotensive and received 1 dose of midodrine. 02/11: Patient is still having low-grade temperatures that we will obtain a bilateral lower upper extremity venous Doppler ultrasound given that his repeat cultures have been negative so far. Patient received a Vas-Cath today for hemodialysis. The time examination patient is on assist control tidal volume 550, rate of 34, PEEP of 16 and FiO2 of 75%. Patient was hypokalemic and anemic yesterday which were both repleted with potassium and 1 unit PRBC. 02/12: 02/12: Patient had a 12-second run of V. tach today, his potassium and magnesium were low which was repleted. Renal adjusted potassium bath. We will obtain a triglyceride level in hopes to restarting to prevent as needed. This morning at the time my examination patient was sedated on fentanyl, Ativan and Precedex and remained on a bicarb drip. He was on assist control tidal volume 550, rate 34, PEEP 16, FiO2 85%. We will obtain a occult stool given no evident source of bleeding and need for transfusion. Anemia possibly due to hemodialysis. 02/13: Patient's T-max was 100.7, remains on fentanyl, Ativan, Precedex and bicarb drip this morning at some examination on assist control tidal volume 550, rate 34, PEEP 16 and FiO2 85%. On the labs this morning is slightly hypokalemic and remains metabolic alkalotic on BMP. His occult was positive. His Lovenox and consult GI. Patient received hemodialysis today. 02/14: cont PPI, GI recommended to scope now, monitor clinically, tolerating TF, remains intubated. Hb 6.9 today - transfuse another unit. very poor prognosis. 02/15: H&H appears to be stable following 1 unit of transfusion yesterday. Continue to hold heparin and aspirin products. Continue to monitor clinically. Poor prognosis. Wean off from vent as tolerated. 02/16: Infectious disease has signed off, his Ativan drip was discontinued and to prevent drip will be started when patient needs it. T-max 100.6 yesterday afternoon. He received hemodialysis today and at the time my examination was still on mechanical ventilation assist control tidal volume 550, rate 34, PEEP 16 on 70% FiO2. Patient was sedated on fentanyl dexamethasone and Ativan. No acute events reported overnight. 02/17: This morning patient was scheduled to get 2 units PRBC however his repeat H/H after 1 unit PRBC was 7.6/22.8 and the width of the second unit PRBC. This morning patient was sedated on fentanyl, propofol, Precedex and on assist control tolerated by 50, rate 34, PEEP of 16, FiO2 35%. Wound care was consulted today for his upper lip wound. Nephrology continues to withhold dialysis. No acute events reported overnight. Dr. Adkins was unable to contact family for updates. 02/18: Family updated by Dr. Adkins and Dr. Reddy. Patient had a hemodialysis today. The time my examination patient was on assist control tidal volume 550, rate 34, PEEP 16 and FiO2 35%. Overnight patient had a CT head and he was placed on 3% FiO2 and took "a long time to recover" per RN report. 02/19: Patient's D-dimer is trending up therefore he was started on prophylactic anticoagulation, no bowel movement for several days so he was started on mag citrate today. The time examination patient is sedated on Precedex 1.2, fentanyl 3, propofol 20 on assist control tidal volume 550, rate 34, PEEP 16, 80% FiO2 and on his ABG his PaO2 is 106. RT will try to wean as tolerated. Repeat COVID-19 PCR today was positive.Dr. Adkins updated the family today. 02/20: Patient received hemodialysis today. In the time my examination patient was sedated on Precedex, fentanyl, propofol and on assist control tidal line 550, rate 34, PEEP of 16 and 75% FiO2. Patient had a bowel movement yesterday. 02/21 no new concerns at this time afebrile Hospital course remains uncomplicated . 02/22. Hospital course complicated by an episode of ectopy over the p.m. Patient required Levophed for blood pressure control. Remains intubated sedated. Tolerated hemodialysis yesterday. 02/23: At the time my examination patient is on assist control tidal volume 550, rate 34, PEEP 16, FiO2 70% and is not sedated. Patient does not follow commands however his eyes open spontaneously and he does not track/focus. 02/24: Neurology consulted, EEG pending. No acute events reported overnight. Patient remains on hyperventilation totaling 550, rate 34, PEEP of 16 on 70% FiO2. Patient received hemodialysis yesterday. 02/25: EEG from 02/24 is suggestive of encephalopathy (toxic metabolic etiology cannot be excluded). This afternoon his peak pressures and and mean airway pressure is elevated so we obtained a CXR and ABG. Results were called to Dr. Masters. Patient received 2 mg of Versed was placed back on his sedation with fentanyl and Precedex. Hospitalist Physical - Constitutional Vitals: Temp Pulse Resp BP Pulse Ox 100.7 F H 106 H 38 H 89/46 97 02/25/21 12:22 02/25/21 14:38 02/25/21 11:00 02/25/21 14:38 02/25/21 14:38 General appearance: Present: no acute distress HEART Score - HEART Score Risk factors: 1-2 risk factors Troponin: < normal limit - Critical Actions Critical Actions: 0-3 pts:0.9-1.7%risk of adverse cardiac event.Candidate for discharge Results - Labs CBC & Chem 7: 02/24/21 04:25 02/24/21 04:25 Labs: Laboratory Last Values WBC 11.5 K/mm3 (4.5-11.0) H 02/24/21 04:25 RBC 2.47 M/mm3 (3.65-5.03) L 02/24/21 04:25 Hgb 7.7 gm/dl (11.8-15.2) L 02/24/21 04:25 Hct 23.5 % (35.5-45.6) L 02/24/21 04:25 MCV 95 fl (84-94) H 02/24/21 04:25 MCH 31 pg (28-32) 02/24/21 04:25 MCHC 33 % (32-34) 02/24/21 04:25 RDW 16.7 % (13.2-15.2) H 02/24/21 04:25 Plt Count 410 K/mm3 (140-440) 02/24/21 04:25 Lymph % (Auto) 11.0 % (13.4-35.0) L 02/15/21 05:00 [place] % (Auto) 4.2 % (0.0-7.3) 02/15/21 05:00 Eos % (Auto) 1.2 % (0.0-4.3) 02/15/21 05:00 Baso % (Auto) 0.6 % (0.0-1.8) 02/15/21 05:00 Lymph # (Auto) 1.1 K/mm3 (1.2-5.4) L 02/15/21 05:00 [place] # (Auto) 0.4 K/mm3 (0.0-0.8) 02/15/21 05:00 Eos # (Auto) 0.1 K/mm3 (0.0-0.4) 02/15/21 05:00 Baso # (Auto) 0.1 K/mm3 (0.0-0.1) 02/15/21 05:00 Add Manual Diff Complete 02/24/21 04:25 Total Counted 100 02/24/21 04:25 Seg Neutrophils % 83.0 % (40.0-70.0) H 02/15/21 05:00 Seg Neuts % (Manual) 82.0 % (40.0-70.0) H 02/24/21 04:25 Band Neutrophils % 2.0 % 02/16/21 Unknown Lymphocytes % (Manual) 3.0 % (13.4-35.0) L 02/24/21 04:25 Reactive Lymphs % (Man) 1.0 % 01/27/21 05:29 Monocytes % (Manual) 11.0 % (0.0-7.3) H 02/24/21 04:25 Eosinophils % (Manual) 1.0 % (0.0-4.3) 02/24/21 04:25 Basophils % (Manual) 1.0 % (0.0-1.8) 02/24/21 04:25 Metamyelocytes % 2.0 % 02/24/21 04:25 Nucleated RBC % Not Reportable 02/24/21 04:25 Seg Neutrophils # 8.6 K/mm3 (1.8-7.7) H 02/15/21 05:00 Seg Neutrophils # Man 9.4 K/mm3 (1.8-7.7) H 02/24/21 04:25 Band Neutrophils # 0.0 K/mm3 02/24/21 04:25 Lymphocytes # (Manual) 0.3 K/mm3 (1.2-5.4) L 02/24/21 04:25 Abs React Lymphs (Man) 0.0 K/mm3 02/24/21 04:25 Monocytes # (Manual) 1.3 K/mm3 (0.0-0.8) H 02/24/21 04:25 Eosinophils # (Manual) 0.1 K/mm3 (0.0-0.4) 02/24/21 04:25 Basophils # (Manual) 0.1 K/mm3 (0.0-0.1) 02/24/21 04:25 Metamyelocytes # 0.2 K/mm3 02/24/21 04:25 Myelocytes # 0.0 K/mm3 02/24/21 04:25 Promyelocytes # 0.0 K/mm3 02/24/21 04:25 Blast Cells # 0.0 K/mm3 02/24/21 04:25 WBC Morphology Not Reportable 02/24/21 04:25 Hypersegmented Neuts Not Reportable 02/24/21 04:25 Hyposegmented Neuts Not Reportable 02/24/21 04:25 Hypogranular Neuts Not Reportable 02/24/21 04:25 Smudge Cells Not Reportable 02/24/21 04:25 Toxic Granulation Not Reportable 02/24/21 04:25 Toxic Vacuolation Not Reportable 02/24/21 04:25 Dohle Bodies Not Reportable 02/24/21 04:25 Pelger-Huet Anomaly Not Reportable 02/24/21 04:25 Fátima Rods Not Reportable 02/24/21 04:25 Platelet Estimate Consistent w auto 02/24/21 04:25 Clumped Platelets Not Reportable 02/24/21 04:25 Plt Clumps, EDTA Not Reportable 02/24/21 04:25 Large Platelets Not Reportable 02/24/21 04:25 Giant Platelets Not Reportable 02/24/21 04:25 Platelet Satelliting Not Reportable 02/24/21 04:25 Plt Morphology Comment Not Reportable 02/24/21 04:25 RBC Morphology Not Reportable 02/24/21 04:25 Dimorphic RBCs Not Reportable 02/24/21 04:25 Polychromasia Few 02/24/21 04:25 Hypochromasia Not Reportable 02/24/21 04:25 Poikilocytosis Not Reportable 02/24/21 04:25 Anisocytosis 1+ 02/24/21 04:25 Microcytosis Not Reportable 02/24/21 04:25 Macrocytosis Not Reportable 02/24/21 04:25 Spherocytes Not Reportable 02/24/21 04:25 Pappenheimer Bodies Not Reportable 02/24/21 04:25 Sickle Cells Not Reportable 02/24/21 04:25 Target Cells Not Reportable 02/24/21 04:25 Tear Drop Cells Not Reportable 02/24/21 04:25 Ovalocytes Not Reportable 02/24/21 04:25 Helmet Cells Not Reportable 02/24/21 04:25 [place] Bodies Not Reportable 02/24/21 04:25 [place] Rings Not Reportable 02/24/21 04:25 [place] Cells Not Reportable 02/24/21 04:25 Bite Cells Not Reportable 02/24/21 04:25 Crenated Cell Not Reportable 02/24/21 04:25 Elliptocytes Not Reportable 02/24/21 04:25 Acanthocytes (Spur) Not Reportable 02/24/21 04:25 Rouleaux Not Reportable 02/24/21 04:25 Hemoglobin C Crystals Not Reportable 02/24/21 04:25 Schistocytes Not Reportable 02/24/21 04:25 Malaria parasites Not Reportable 02/24/21 04:25 Aqu[place] Bodies Not Reportable 02/24/21 04:25 Hem Pathologist Commnt No 02/24/21 04:25 PT 14.9 Sec. (12.2-14.9) 02/11/21 08:27 INR 1.17 (0.87-1.13) H 02/11/21 08:27 D-Dimer 6536.84 ng/mlDDU (0-234) H 02/25/21 09:03 ABG pH 7.287 (7.320-7.450) L 02/25/21 03:42 POC ABG pCO2 58.2 mmHg (32.0-48.0) H 02/25/21 03:42 ABG pCO2 62.7 mm Hg 02/23/21 04:00 POC ABG pO2 83.5 mmHg (83-108) 02/25/21 03:42 ABG pO2 119.4 mm Hg (80.0-90.0) H 02/23/21 04:00 POC ABG HCO3 27.2 02/25/21 03:42 ABG HCO3 26.6 mmol/L (20.0-26.0) H 02/23/21 04:00 ABG O2 Saturation 95.4 (0-100) 02/25/21 03:42 ABG O2 Content 12.0 (0.0-44) 02/23/21 04:00 POC ABG Base Excess 0.1 02/25/21 03:42 ABG Base Excess -1.2 mmol/L (-2.0-3.0) 02/23/21 04:00 ABG Hemoglobin 8.4 (12.0-17.5) L 02/25/21 03:42 ABG Oxyhemoglobin 93.7 (94-98) L 02/25/21 03:42 ABG Carboxyhemoglobin 1.8 % (0.0-5.0) 02/23/21 04:00 ABG Methemoglobin 0.3 (0.0-1.5) 02/25/21 03:42 ABG Sodium 136.5 mmol/L (136.0-145.0) 02/25/21 03:42 ABG Potassium 3.9 mmol/L (3.40-4.50) 02/25/21 03:42 ABG Chloride 100.0 mmol/L (98-107) 02/25/21 03:42 ABG Glucose 104 mg/dL (65-95) H 02/25/21 03:42 Oxyhemoglobin 95.4 % (95.0-99.0) 02/23/21 04:00 Carboxyhemoglobin 1.5 (0.5-1.5) 02/25/21 03:42 FiO2 70 % 02/23/21 04:00 FiO2 % 65.0 02/25/21 03:42 Sodium 138 mmol/L (137-145) 02/24/21 04:25 Potassium 3.7 mmol/L (3.6-5.0) 02/24/21 04:25 Chloride 98.0 mmol/L (98-107) 02/24/21 04:25 Carbon Dioxide 30 mmol/L (22-30) 02/24/21 04:25 Anion Gap 14 mmol/L 02/24/21 04:25 BUN 68 mg/dL (9-20) H 02/24/21 04:25 Creatinine 4.9 mg/dL (0.8-1.3) H 02/24/21 04:25 Estimated GFR 15 ml/min 02/24/21 04:25 BUN/Creatinine Ratio 14 % 02/24/21 04:25 Glucose 113 mg/dL (75-100) H 02/24/21 04:25 POC Glucose 102 mg/dL (70-105) 02/25/21 11:48 Hemoglobin A1c 6.3 % (4-6) H 02/02/21 16:00 Lactic Acid 1.90 mmol/L (0.7-2.0) 01/24/21 14:38 Calcium 8.6 mg/dL (8.4-10.2) 02/24/21 04:25 Phosphorus 7.90 mg/dL (2.5-4.5) H 02/21/21 16:35 Magnesium 2.60 mg/dL (1.7-2.3) H 02/21/21 16:35 Ferritin 1116.0 ng/mL (30.0-300.0) H 02/24/21 04:25 Total Bilirubin 1.50 mg/dL (0.1-1.2) H 01/26/21 05:47 AST 37 units/L (5-40) 01/26/21 05:47 ALT 29 units/L (7-56) 01/26/21 05:47 Alkaline Phosphatase 70 units/L (35-129) 01/26/21 05:47 Lactate Dehydrogenase 345 units/L (91-180) H 02/19/21 05:45 C-Reactive Protein 7.20 mg/dL (0.00-1.30) H 02/24/21 04:25 Total Protein 7.2 g/dL (6.3-8.2) 01/26/21 05:47 Albumin 2.2 g/dL (3.9-5) L 01/26/21 05:47 Albumin/Globulin Ratio 0.4 % 01/26/21 05:47 Triglycerides 195 mg/dL (2-149) H 02/19/21 05:45 Procalcitonin 18.94 ng/mL (<0.15) 02/16/21 17:09 Arterial Blood Glucose 104 mg/dL (65-95) H 02/25/21 03:42 Arterial Blood Ionized Calcium 4.5 mg/dL (4.6-5.3) L 02/25/21 03:42 Urine Color Nehal (Yellow) 01/22/21 22:39 Urine Turbidity Cloudy (Clear) 01/22/21 22:39 Urine pH 5.0 (5.0-7.0) 01/22/21 22:39 Ur Specific [place] 1.017 (1.003-1.030) 01/22/21 22:39 Urine Protein 100 mg/dl mg/dL (Negative) 01/22/21 22:39 Urine Glucose (UA) Neg mg/dL (Negative) 01/22/21 22:39 Urine Ketones Neg mg/dL (Negative) 01/22/21 22:39 Urine Blood Mod (Negative) 01/22/21 22:39 Urine Nitrite Neg (Negative) 01/22/21 22:39 Urine Bilirubin Neg (Negative) 01/22/21 22:39 Urine Urobilinogen 2.0 mg/dL (<2.0) 01/22/21 22:39 Ur Leukocyte Esterase Mod (Negative) 01/22/21 22:39 Urine WBC (Auto) < 1.0 /HPF (0.0-6.0) 01/22/21 22:39 Urine RBC (Auto) < 1.0 /HPF (0.0-6.0) 01/22/21 22:39 U Epithel Cells (Auto) < 1.0 /HPF (0-13.0) 01/22/21 22:39 Urine Osmolality 416 Mosm/kg 01/30/21 12:15 Urine Total Volume 2300 ml 01/30/21 12:00 Urine Creatinine 53.0 mg/dL (0.1-20.0) H 01/30/21 12:00 Ur Creatinine 24 Hour 1.2 (0.8-2.8) 01/30/21 12:00 Urine Sodium 28 mmol/L 01/22/21 22:39 Nasal Screen MRSA (PCR) Negative (Negative) 02/02/21 13:20 Random Vancomycin 13.7 ug/mL (0-40.0) 02/07/21 10:40 Coronavirus (PCR) Positive (Negative) A 02/18/21 10:00 Hepatitis A IgM Ab Non-reactive (NonReactive) 02/03/21 Unknown Hep Bs Antigen Non-reactive (Negative) 02/03/21 Unknown Hep B Core IgM Ab Non-reactive (NonReactive) 02/03/21 Unknown Hepatitis C Antibody Non-reactive (NonReactive) 02/03/21 Unknown Blood Type B POSITIVE 02/17/21 07:45 Antibody Screen Negative 02/17/21 07:45 Crossmatch See Detail 02/17/21 07:45 Black/IV: Voiding Method Incontinent Active Medications - Current Medications Current Medications: Generic Name Dose Route Start Last Admin Trade Name Freq PRN Reason Stop Dose Admin Acetaminophen 650 mg 01/24/21 12:58 02/25/21 13:31 Acetaminophen 325 Mg/10.15 Ml Oral Liqd Unit Dose FEEDTUBE 650 mg Q6H PRN Administration Pain, Mild (1-3) Lipase/Protease/Amylase 1 each 01/26/21 14:25 Lipase 10,500/Protease 25,000/Amylase 43,750 (Units) Dr Cap FEEDTUBE PRN PRN For Clogged Feeding Tube Dextrose 50 ml 01/27/21 07:24 Dextrose 50% In Water (25gm) 50 Ml Syringe IV Q30MIN PRN Hypoglycemia Protocol Fentanyl 50 mcg 01/22/21 22:39 02/25/21 10:25 Fentanyl 100 Mcg/2 Ml Inj IV 50 mcg Q10MIN PRN Administration ANALGESIA Heparin Sodium (Porcine) 2,000 unit 02/11/21 09:38 02/21/21 21:25 Heparin 10,000 Units/10 Ml Vial IV 2,000 unit S[place]IO PRN Administration hemodialysis Heparin Sodium (Porcine) 5,000 unit 02/19/21 14:00 02/25/21 05:09 Heparin 5,000 Unit/1 Ml Vial SUB-Q 5,000 unit Q8HR CECE Administration Fentanyl Citrate 2,000 mcg in 100 mls @ 6.124 mls/hr 01/22/21 23:00 02/25/21 14:35 Fentanyl Drip Premix IV 1 mcg/kg/hr TITR CECE 6.124 mls/hr Titration Protocol 1 MCG/KG/HR Propofol 1,000 mg in 100 mls @ 3.674 mls/hr 01/22/21 23:45 02/21/21 08:30 Diprivan 10 Mg/Ml IV 0 mcg/kg/min TITR CECE 0 mls/hr Titration Protocol 5 MCG/KG/MIN Norepinephrine 4 mg in 250 mls @ 7.5 mls/hr 01/28/21 14:00 02/22/21 18:27 Levophed Drip 4 Mg/Ns 250 Ml IV 0 mcg/min TITR CECE 0 mls/hr Titration Protocol 2 MCG/MIN Dexmedetomidine HCl 1,000 mcg/ 260 mls @ 6.368 mls/hr 01/30/21 20:00 02/25/21 14:35 Sodium Chloride IV 0.1 mcg/kg/hr TITRATE CECE 3.2 mls/hr Titration Protocol 0.2 MCG/KG/HR Sodium Chloride 100 mls @ 999 mls/hr 02/22/21 13:43 Nacl 0.9% IV S[place]IO PRN Hypotension Lansoprazole 30 mg 02/18/21 10:00 02/25/21 09:36 Lansoprazole 30 Mg Solutab FEEDTUBE 30 mg QDAY CECE Administration Senna/Docusate Sodium 1 tab 02/25/21 10:00 02/25/21 11:26 Sennosides/Docusate Sodium 8.6/50 Mg Tab PO Not Given BID CECE Simple Syrup 15 ml 01/26/21 14:25 02/21/21 21:24 Simple Syrup 15 Ml FEEDTUBE 15 ml PRN PRN Administration Hypoglycemia Simple Syrup 30 ml 01/26/21 14:25 Simple Syrup 15 Ml FEEDTUBE PRN PRN Hypoglycemia Sodium Bicarbonate 325 mg 01/26/21 14:25 Sodium Bicarbonate 325 Mg Tab FEEDTUBE PRN PRN For Clogged Feeding Tube Nutrition/Malnutrition Assess - Dietary Evaluation Nutrition/Malnutrition Findings: Nutrition Notes Start: 01/26/21 13:59 Freq: Status: Active Protocol: Document 02/24/21 13:25 CW (Rec: 02/24/21 13:32 CW [id number]) Nutrition Notes Initial or Follow up Reassessment Current Diagnosis Acute Kidney Injury,Diabetes, Sepsis,Hypertension, Respiratory Failure, Hyperlipidemia Other Pertinent Diagnosis on HD, COVID-19 (+), bilat pneu Current Diet TF - Nepro at 36 ml/hr Labs/Tests BUN 68 Cr 4.9 Pertinent Medications reviewed Height 5 ft 8 in Weight 99.1 kg [place] Body Weight (kg) 70.00 BMI 33.2 Weight change and time frame wt change likely inaccurate Weight Status Morbidly Obese Subjective/Other Information F/U for TF tolerance. Pt has 1 event of TF intolerance last night at which TF was held and ran at 35 ml/hr. TF tolerated at 35 ml/hr and increase back up to goal this afternoon per RN. Percent of energy/protein needs met: 65%/30% Burn Absent Trauma Absent GI Symptoms Constipation Difficulty In Swallowing Skin Integrity/Comment pressure ulcer to lips Current % PO Negligible Minimum of two criteria No Fluid Accumulation Moderate to Severe (severe) #2 Nutrition Diagnosis Increased nutrient needs ( specify in comment below) Diagnosis Progress(for reassessment Continues documentation) #1 Nutrition Diagnosis Inadequate oral intake Diagnosis Progress(for reassessment Continues documentation) Is patient on ventilator? Yes Is Patient Ambulatory and/or Out of Bed No REE-([place]-[facility]. Jeor-confined to bed) 2123.364 Kcal/Kg value to use for calculation 12 Approximate Energy Requirements Using 1189 kcal/Kg Calculation Used for Recommendations Kcal/kg Additional Notes Pro needs >1.2g/kg adjBW: > 115g/day for HD needs Fluid needs 500+ total output or per MD Nutrition Intervention Change Diet Order: Continue TF Nutrition Support: Nepro at 46 ml/hr with a free water flush of 200 ml q4h. Kcal 1,987 Protein (gm) 89 Fluid (mL) 803 Goal #1 TF tolerance Goal #2 TF to meet at least 75% energy and pro needs Anticipated Discharge Needs: unable to determine at this time Follow-Up By: 02/26/21 Additional Comments F/U for TF tolerance
[2021-02-26] MEDS: fentaNYL DRIP Premix 2,000 MCG/100 ML BAG IV SCH ×3 (03:38→20:50)
[2021-02-26 06:06] LABS: Hematocrit 23.2 % (35.5-45.6); Hemoglobin 7.5 gm/dl (11.8-15.2); Mean Corpuscular HGB Conc 32 % (32-34); Mean Corpuscular Volume 97 fl (84-94); Platelet Count 351 K/mm3 (140-440); Red Cell Distribution Width 17.4 % (13.2-15.2)
[2021-02-26] MEDS: HEPARIN 5,000 UNIT/1 ML VIAL SUB-Q SCH ×3 (06:11→22:18)
[2021-02-26 06:56] LABS: C-Reactive Protein 5.9 mg/dL (0.00-1.30); Calcium 7.7 mg/dL (8.4-10.2)
[2021-02-26] MEDS: LANSOPRAZOLE 30 MG SOLUTAB FEEDTUBE SCH (09:46)
[2021-02-26] MEDS: SENNOSIDES/DOCUSATE SODIUM 8.6/50 MG TAB PO SCH ×2 (09:46→22:18)
--- NOTE | 2021-02-26 13:41 | Progress Note ---
Assessment and Plan Acute Hypoxic respiratory failure COVID-19 PNA Severe sepsis with septic shock Acute kidney injury secondary to ATN Hyperkalemia Hypernatremia DM2 on insulin Anemia Plan: no indication for HD today Initiated on HD on 02/03/21 S/P Right IJ Trialysis dialysis catheter placement by Dr Reddy Strict I&O's monitoring Renally dose medications Assess dialysis needs daily Monitor for renal recovery Subjective Date of service: 02/26/21 Principal diagnosis: DEISI Interval history: sedated, on the vent Objective - Vital Signs Vital signs: Vital Signs - 12hr 02/26/21 02/26/21 02/26/21 01:45 02:00 02:15 Temperature Pulse Rate 107 H 106 H 106 H Pulse Rate [ From Monitor] Respiratory 36 H 36 H 36 H Rate Blood Pressure 109/58 112/59 109/58 O2 Sat by Pulse 96 96 95 Oximetry 02/26/21 02/26/21 02/26/21 02:30 02:45 03:00 Temperature Pulse Rate 106 H 105 H 105 H Pulse Rate [ From Monitor] Respiratory 35 H 35 H 29 H Rate Blood Pressure 105/56 108/56 106/54 O2 Sat by Pulse 95 95 93 Oximetry 02/26/21 02/26/21 02/26/21 03:15 03:30 03:45 Temperature Pulse Rate 105 H 105 H 104 H Pulse Rate [ From Monitor] Respiratory 31 H 36 H 36 H Rate Blood Pressure 103/55 108/60 104/56 O2 Sat by Pulse 88 94 Oximetry 02/26/21 02/26/21 02/26/21 04:00 04:15 04:30 Temperature 98.9 F Pulse Rate 104 H 103 H 103 H Pulse Rate [ 105 H From Monitor] Respiratory 36 H 36 H 35 H Rate Blood Pressure 99/56 99/55 103/55 O2 Sat by Pulse 100 Oximetry 02/26/21 02/26/21 02/26/21 04:45 05:00 05:15 Temperature Pulse Rate 103 H 103 H 103 H Pulse Rate [ From Monitor] Respiratory 35 H 26 H 34 H Rate Blood Pressure 100/57 105/59 105/57 O2 Sat by Pulse 96 94 92 Oximetry 02/26/21 02/26/21 02/26/21 05:30 05:45 06:00 Temperature Pulse Rate 103 H 103 H 103 H Pulse Rate [ From Monitor] Respiratory 35 H 34 H 36 H Rate Blood Pressure 108/58 110/62 102/59 O2 Sat by Pulse 93 91 97 Oximetry 02/26/21 02/26/21 02/26/21 06:15 06:30 06:45 Temperature Pulse Rate 103 H 103 H 103 H Pulse Rate [ From Monitor] Respiratory 34 H 34 H 35 H Rate Blood Pressure 105/58 108/59 102/56 O2 Sat by Pulse 95 94 95 Oximetry 02/26/21 02/26/21 02/26/21 07:00 07:15 07:30 Temperature Pulse Rate 104 H 105 H 105 H Pulse Rate [ From Monitor] Respiratory 35 H 35 H 36 H Rate Blood Pressure 116/66 114/62 107/59 O2 Sat by Pulse 93 93 93 Oximetry 02/26/21 02/26/21 02/26/21 07:45 07:58 08:00 Temperature 98.2 F Pulse Rate 104 H 105 H 105 H Pulse Rate [ 106 H From Monitor] Respiratory 35 H 35 H Rate Blood Pressure 98/55 103/55 103/55 O2 Sat by Pulse 100 95 94 Oximetry 02/26/21 02/26/21 02/26/21 08:15 08:30 08:45 Temperature Pulse Rate 105 H 104 H 103 H Pulse Rate [ From Monitor] Respiratory 34 H 34 H 35 H Rate Blood Pressure 110/59 109/59 112/60 O2 Sat by Pulse 95 94 94 Oximetry 02/26/21 02/26/21 02/26/21 09:00 09:15 09:30 Temperature Pulse Rate 103 H 103 H 104 H Pulse Rate [ From Monitor] Respiratory 36 H 35 H 22 Rate Blood Pressure 106/58 103/58 118/66 O2 Sat by Pulse 93 93 Oximetry 02/26/21 02/26/21 02/26/21 09:45 10:00 10:15 Temperature Pulse Rate 105 H 105 H 106 H Pulse Rate [ From Monitor] Respiratory 35 H 35 H 37 H Rate Blood Pressure 130/72 126/68 127/69 O2 Sat by Pulse 93 Oximetry 02/26/21 02/26/21 02/26/21 10:30 10:45 11:00 Temperature Pulse Rate 106 H 106 H 106 H Pulse Rate [ From Monitor] Respiratory 34 H 35 H 35 H Rate Blood Pressure 120/64 116/66 114/65 O2 Sat by Pulse 95 96 Oximetry 02/26/21 02/26/21 11:17 12:00 Temperature 98.4 F Pulse Rate 105 H Pulse Rate [ From Monitor] Respiratory Rate Blood Pressure 116/63 O2 Sat by Pulse 97 Oximetry - Lab 02/26/21 05:48 02/26/21 05:48 Most recent lab results ABG pH 7.228 (7.320-7.450) L 02/26/21 08:00 ABG pCO2 62.7 mm Hg 02/23/21 04:00 ABG pO2 119.4 mm Hg (80.0-90.0) H 02/23/21 04:00 ABG HCO3 26.6 mmol/L (20.0-26.0) H 02/23/21 04:00 ABG O2 Saturation 94.6 (0-100) 02/26/21 08:00 Calcium 7.7 mg/dL (8.4-10.2) L 02/26/21 05:48 Phosphorus 7.90 mg/dL (2.5-4.5) H 02/21/21 16:35 Magnesium 2.60 mg/dL (1.7-2.3) H 02/21/21 16:35 Urine Creatinine 53.0 mg/dL (0.1-20.0) H 01/30/21 12:00 Urine Sodium 28 mmol/L 01/22/21 22:39 Medications & Allergies - Medications Allergies/Adverse Reactions: Allergies No Known Allergies Allergy (Unverified 03/12/20 13:41) Home Medications: Home Medications Medication Instructions Recorded Confirmed Last Taken Type Insulin NPH/Regular [Novolin 70/30] 18 unit SUB-Q TIDAC #1 vial 03/12/20 Unknow n Rx Syringe-Needle,Insulin,0.5 ml 1 box MC TID #1 box 03/12/20 Unknown Rx [Insulin Syringe/Needle 0.5 ML] Active Medications: Generic Name Dose Route Start Last Admin Trade Name Freq PRN Reason Stop Dose Admin Acetaminophen 650 mg 01/24/21 12:58 02/25/21 13:31 Acetaminophen 325 Mg/10.15 Ml Oral Liqd Unit Dose FEEDTUBE 650 mg Q6H PRN Administration Pain, Mild (1-3) Lipase/Protease/Amylase 1 each 01/26/21 14:25 Lipase 10,500/Protease 25,000/Amylase 43,750 (Units) Dr Cap FEEDTUBE PRN PRN For Clogged Feeding Tube Dextrose 50 ml 01/27/21 07:24 Dextrose 50% In Water (25gm) 50 Ml Syringe IV Q30MIN PRN Hypoglycemia Protocol Fentanyl 50 mcg 01/22/21 22:39 02/25/21 10:25 Fentanyl 100 Mcg/2 Ml Inj IV 50 mcg Q10MIN PRN Administration ANALGESIA Heparin Sodium (Porcine) 2,000 unit 02/11/21 09:38 02/21/21 21:25 Heparin 10,000 Units/10 Ml Vial IV 2,000 unit [place] PRN Administration hemodialysis Heparin Sodium (Porcine) 5,000 unit 02/19/21 14:00 02/26/21 06:11 Heparin 5,000 Unit/1 Ml Vial SUB-Q 5,000 unit Q8HR CECE Administration Fentanyl Citrate 2,000 mcg in 100 mls @ 6.124 mls/hr 01/22/21 23:00 02/26/21 12:31 Fentanyl Drip Premix IV 2 mcg/kg/hr TITR CECE 12.247 mls/hr Administration Protocol 1 MCG/KG/HR Propofol 1,000 mg in 100 mls @ 3.674 mls/hr 01/22/21 23:45 02/21/21 08:30 Diprivan 10 Mg/Ml IV 0 mcg/kg/min TITR CECE 0 mls/hr Titration Protocol 5 MCG/KG/MIN Norepinephrine 4 mg in 250 mls @ 7.5 mls/hr 01/28/21 14:00 02/22/21 18:27 Levophed Drip 4 Mg/Ns 250 Ml IV 0 mcg/min TITR CECE 0 mls/hr Titration Protocol 2 MCG/MIN Dexmedetomidine HCl 1,000 mcg/ 260 mls @ 6.368 mls/hr 01/30/21 20:00 02/25/21 14:35 Sodium Chloride IV 0.1 mcg/kg/hr TITRATE CECE 3.2 mls/hr Titration Protocol 0.2 MCG/KG/HR Sodium Chloride 100 mls @ 999 mls/hr 02/22/21 13:43 Nacl 0.9% IV [place] PRN Hypotension Lansoprazole 30 mg 02/18/21 10:00 02/26/21 09:46 Lansoprazole 30 Mg Solutab FEEDTUBE 30 mg QDAY CECE Administration Senna/Docusate Sodium 1 tab 02/25/21 10:00 02/26/21 09:46 Sennosides/Docusate Sodium 8.6/50 Mg Tab PO 1 tab BID CECE Administration Simple Syrup 15 ml 01/26/21 14:25 02/21/21 21:24 Simple Syrup 15 Ml FEEDTUBE 15 ml PRN PRN Administration Hypoglycemia Simple Syrup 30 ml 01/26/21 14:25 Simple Syrup 15 Ml FEEDTUBE PRN PRN Hypoglycemia Sodium Bicarbonate 325 mg 01/26/21 14:25 Sodium Bicarbonate 325 Mg Tab FEEDTUBE PRN PRN For Clogged Feeding Tube
--- NOTE | 2021-02-26 14:12 | Progress Note ---
Assessment and Plan Assessment and plan: This is a 60-year-old male with diabetes mellitus, hypertension, hyperlipidemia, chronic renal insufficiency who was admitted on 01/23 as a COVID-19 PUI with Sepsis, COVID-19 pneumonia, coag negative staph bacteremia, acute hypoxic respiratory failure, and acute kidney injury. Sepsis COVID-19 pneumonia Coag-neg Staph bacteremia Acute hypoxic respiratory failure Acute kidney injury, HD initiated 02/03 Anemia Diabetes mellitus Hypertension Hyperlipidemia Chronic renal insufficiency Elevated D-dimer -CCM, nephrology, infectious disease, GI , neurology consulted, appreciate recommendations -s/p Antibiotic therapy, remdesivir, Steroid therapy -COVID-19 PCR positive, Pneumonia on CXR -Mechanical ventilation, wean as tolerated -VAP bundle -HD per nephrology -S/p 4 units PRBC during stay -Trend BMP, CBC, COVID-19 inflammatory markers -Bilateral lower extremity and upper extremity Doppler ultrasound negative for DVT/SVT -SSI and Long-acting insulin -Accu-Cheks every 6 while on tube feedings -Hold home antihypertensive regimen and resume when appropriate -S/p vasopressor support -Blood pressure monitoring per protocol -S/p NaHCO3 gtt -02/17 CT head showed no acute intracranial abnormality, paranasal sinus disease -Bowel regimen -02/24 EEG finding consistent with encephalopathy and/or drug effect, possibility of toxic metabolic etiology cannot be excluded, possibility of structural lesion on the left side cannot be excluded given left being slightly slower than the right. -Sedation with fentanyl and Precedex DVT/GI prophylaxis: SCDs to bilateral lower extremities while in bed, PPI, heparin subq Dispo: ICU The high probability of a clinically significant, sudden or life threatening deterioration of the [multi] system(s) required my full and direct attention, intervention and personal management. The aggregate critical care time was [35] minutes. This time is in addition to time spent performing reported procedures but includes the following: [x] Data Review and interpretation [x] Patient assessment and monitoring of vital signs [x] Documentation [x] Medication orders and management History Interval history: This is a 60-year-old male with diabetes mellitus, hypertension, hyperlipidemia, chronic renal insufficiency presents to the emergency department on 01/23 with shortness of breath, fevers chills, loss of smell and taste and body aches for the past 3 days via EMS. Per EMS patient's oxygen saturation on room air was 50% and after being placed on nonrebreather it increased 75%. Upon arrival to the emergency department patient was being bagged by EMS. In the emergency room patient was intubated due to severe hypoxia, increased work of breathing and lethargy. Patient was sedated on propofol and fentanyl. Patient presented with fever, tachycardia, tachypnea and acute hypoxic respiratory failure with PNA on CXR meeting Sepsis criteria. Lab work in the emergency department revealed hyponatremia, hypokalemia, hypochloremia, elevated CR/BUN and CXR showed bilateral pneumonia. Patient was admitted to the hospital service as a COVID-19 PUI with consults to infectious disease, nephrology and critical care medicine. 01/24/2021: Patient is intubated and sedated, patient is positive for COVID-19 infection. ID was consulted and put on dexamethasone and remdesivir. Patient has DEISI and nephrology is following. Creatinine stable, patient is urinating. Discussed with nephrology and he is okay with remdesivir. Pulmonary critical care is following for his vent setting. PEEP of 8 and FiO2 of 85%. Patient was alert and off sedatives. 01/25/2021; patient is intubated and on mechanical ventilation. Continue with treatment of Covid. Nephrology and ID is following. Pulmonary is following for vent management 01/26: Remains on mechanical ventilation and [facility] increased his PEEP. [facility] has ordered Precedex for sedation. Possibly need to prone this p.m. No acute events reported overnight. This morning his D-dimer is greater than 10,000 and we have started him on Lovenox 120 mg daily. Nutrition has been consulted for initiation of tube feedings. Patient remains sedated on propofol 40 and fentanyl for the time my examination this morning. 01/27: Continue Lovenox, remdesivir and empiric antibiotics. Patient had a T-max of 101 overnight. The time of examination patient is on CMV 500/18/14/0.61. Kidney function slightly worsened. Sedated on fentanyl ground-level fall and Precedex. Nephrology has increased IV fluids to 100 ml/hr. Continue to trend BMP and CBC. Sedation vacation attempt by RN this AM. 01/28: Patient completed antibiotics today [facility] will paralyze patient and increase sedation. PICC line ordered for possible vasopressor therapy need. Patient's D-dimer remains greater than 10,000 and he still has hyperchloremia. Patient's kidney function has improved today. May need to prone the patient if no improvement in oxygenation is noted in the next 24 hours. The time of my [facility] hospital patient is sedated with propofol, fentanyl and Precedex and is on assist control 500/18/16/0.80 hypoxic on ABG on 60% FiO2. 4: Patient was started on Nimbex yesterday and his ABG this morning showed respiratory acidosis with hypercapnia and his respiratory rate was increased. We will obtain a repeat ABG this afternoon. This morning patient is hypernatremic, hyperkalemic and hyperchloremic. His potassium has been corrected with the management and will obtain repeat BMP tomorrow. His kidney functions have remained stable and we will await nephrology's input. No acute events reported overnight. This morning the time my examination patient sedated with propofol, Precedex and fentanyl and paralyzed with Nimbex. He is on assist control 500/24/16 0.80. 01/30: This morning patient is hypokalemic again and was given Kayexalate. Patient has hypernatremia and hyper chloremia and his renal function is slightly worse after receiving Lasix yesterday. His D-dimer remains greater than 10,000 and he is still on a paralytic. Patient is sedated on Precedex, fentanyl, propofol. Mechanical ventilation settings seven-point /61/28. [facility] has decided to continue paralytics for 48 more hours and will attempt proning the patient. Increased free water flushes 300 cc every 4 hours. Patient states has restarted his antibiotics cefepime and vancomycin and recultured. 01/31/21 Hyperkalemia, Treated 02/01/21 Hyperkalemia, Treated 02/02: Patient's kidney function continues to worsen and a stat BMP this morning shows BUN/creatinine 20/6.1 and he remains hypocalcemic and hypernatremic, h ypokalemic and hypochloremic. Patient received 2 g of calcium gluconate and Kayexalate and his repeat potassium was 4.3 this afternoon. He remains antibiotic therapy and steroids. Nephrology has placed the patient on bicarb drip given metabolic acidosis and has decided to hold off hemodialysis till tomorrow.The time my examination patient is sedated on fentanyl, Precedex and on assist control 500/20/12/0.70. s/p paralytic. 02/03: Today patient's ABG shows respiratory acidosis however it is improving, hypernatremia, hyperchloremia, metabolic acidosis on BMP, worsening kidney function BUN/creatinine 130/9.2 with hyperphosphatemia. Patient received a Vas- Cath to his right IJ for initiation of dialysis. At the time of my examination patient remains sedated on fentanyl, propofol and Precedex with vasopressor support with Levophed at 2. 02/04: At the time of examination patient was on assist control tidal volume 500, rate 40, PEEP of 12, FiO2 85%. Patient had a T-max of 100.9 and infectious disease has stopped his vancomycin given negative MRSA. This afternoon patient respiked his temperature and was pancultured again. Patient was started on hemodialysis yesterday and will receive HD again today. Patient is sedated on Precedex, propofol, fentanyl and remains on Levophed. He is on assist control tidal volume 500, rate of 30, PEEP of 12, FiO2 of 85%. Patient still has some respiratory acidosis however his hypernatremia and hyperchloremia have improved and his metabolic acidosis has resolved. Patient will receive hemodialysis today 02/05: Patient continues to have low-grade fever temp this morning time examination he was on assist control tidal volume 500, and sedated on pro pofol/fentanyl/Precedex and is on Levophed. Hemodialysis per nephrology. Antibiotics per ID. Patient's blood culture from 02/04 grew gram-positive cocci in clusters in 1/2 bottles and he was started on vancomycin. 02/06: Patients ABG showed respiratory acidosis and the tracings were changed however a repeat ABG showed showed acidosis.[facility] will start a bicarb drip after giving 2 amps of bicarb push. Yesterday patient blood cultures grew gram- positive cocci and he was started on vancomycin. At the time my examination patient was on assist control tidal volume 550, rate 34, PEEP 16, FiO2 90% and sedated on fentanyl, Precedex, propofol elevated pressure support with Levophed. Bilateral lower extremity Doppler ultrasounds done yesterday showed no evidence of DVT/SVT. 02/07/2021; patient is still on the vent with PEEP of 16 and FiO2 of 90%, sedated with fentanyl Precedex and propofol. Patient still requiring Levophed. Patient was sedated yesterday and was given bicarb push. Blood culture grew gram-positive cocci in clusters and he is on vancomycin, will follow identification. 02/08/2021;patient is still on the vent with PEEP of 16 and FiO2 of 90%, sedated with fentanyl Precedex and propofol. Patient still requiring Levophed. Patient was sedated yesterday and was given bicarb push. Blood culture grew gram- positive cocci in clusters and he is on vancomycin, will follow identification. Patient is currently on dialysis. Patient is anemic transfuse if hemoglobin is below 7. 02/09: This morning patient has slight hypokalemia, hypochorlemia, hyponatremia and metabolic alkalosis. [facility] will continue bicarb gtt given that the patient does not have HD access at this time. We will replete the potassium and recheck BMP in the AM. We will type and cross in anticipation of PRBC transfusion. This morning he is sedated on Ativan, fentayl, and precedex. Will obtain a triglyceride level today in hopes to resume propofol. Patient is alkalotic and BMP however we will continue with bicarb drip per [facility] given that the patient does not have any access for hemodialysis. Anticipate replacing hemodialysis catheter tomorrow or Tuesday. The time my examination he is on AC TV 550, Ra te 34, PeeP 16, FiO2 .65. 02/10: A.m. labs still pending, [facility] plans to replace HD catheter tomorrow as the patient is still febrile however his fever curve is trending down, remains on a bicarb drip and on vancomycin. Today at the time my examination patient was sedated on Precedex, Ativan and fentanyl and he is on assist control tidal 11/04/1951, rate 34, PEEP 16, FiO2 65%. Overnight patient was hypotensive and received 1 dose of midodrine. 02/11: Patient is still having low-grade temperatures that we will obtain a bilateral lower upper extremity venous Doppler ultrasound given that his repeat cultures have been negative so far. Patient received a Vas-Cath today for hemodialysis. The time examination patient is on assist control tidal volume 550, rate of 34, PEEP of 16 and FiO2 of 75%. Patient was hypokalemic and anemic yesterday which were both repleted with potassium and 1 unit PRBC. 02/12: 02/12: Patient had a 12-second run of V. tach today, his potassium and magnesium were low which was repleted. Renal adjusted potassium bath. We will obtain a triglyceride level in hopes to restarting to prevent as needed. This morning at the time my examination patient was sedated on fentanyl, Ativan and Precedex and remained on a bicarb drip. He was on assist control tidal volume 550, rate 34, PEEP 16, FiO2 85%. We will obtain a occult stool given no evident source of bleeding and need for transfusion. Anemia possibly due to hemodialysis. 02/13: Patient's T-max was 100.7, remains on fentanyl, Ativan, Precedex and bicarb drip this morning at some examination on assist control tidal volume 550, rate 34, PEEP 16 and FiO2 85%. On the labs this morning is slightly hypokalemic and remains metabolic alkalotic on BMP. His occult was positive. His Lovenox and consult GI. Patient received hemodialysis today. 02/14: cont PPI, GI recommended to scope now, monitor clinically, tolerating TF, remains intubated. Hb 6.9 today - transfuse another unit. very poor prognosis. 02/15: H&H appears to be stable following 1 unit of transfusion yesterday. Continue to hold heparin and aspirin products. Continue to monitor clinically. Poor prognosis. Wean off from vent as tolerated. 02/16: Infectious disease has signed off, his Ativan drip was discontinued and to prevent drip will be started when patient needs it. T-max 100.6 yesterday afternoon. He received hemodialysis today and at the time my examination was still on mechanical ventilation assist control tidal volume 550, rate 34, PEEP 16 on 70% FiO2. Patient was sedated on fentanyl dexamethasone and Ativan. No acute events reported overnight. 02/17: This morning patient was scheduled to get 2 units PRBC however his repeat H/H after 1 unit PRBC was 7.6/22.8 and the width of the second unit PRBC. This morning patient was sedated on fentanyl, propofol, Precedex and on assist control tolerated by 50, rate 34, PEEP of 16, FiO2 35%. Wound care was consulted today for his upper lip wound. Nephrology continues to withhold dialysis. No acute events reported overnight. Dr. Adkins was unable to contact family for updates. 02/18: Family updated by Dr. Adkins and Dr. Reddy. Patient had a hemodialysis today. The time my examination patient was on assist control tidal volume 550, rate 34, PEEP 16 and FiO2 35%. Overnight patient had a CT head and he was placed on 3% FiO2 and took "a long time to recover" per RN report. 02/19: Patient's D-dimer is trending up therefore he was started on prophylactic anticoagulation, no bowel movement for several days so he was started on mag citrate today. The time examination patient is sedated on Precedex 1.2, fentanyl 3, propofol 20 on assist control tidal volume 550, rate 34, PEEP 16, 80% FiO2 and on his ABG his PaO2 is 106. RT will try to wean as tolerated. Repeat COVID-19 PCR today was positive.Dr. Adkins updated the family today. 02/20: Patient received hemodialysis today. In the time my examination patient was sedated on Precedex, fentanyl, propofol and on assist control tidal line 550, rate 34, PEEP of 16 and 75% FiO2. Patient had a bowel movement yesterday. 02/21 no new concerns at this time afebrile Hospital course remains uncomplicated . 02/22. Hospital course complicated by an episode of ectopy over the p.m. Patient required Levophed for blood pressure control. Remains intubated sedated. Tolerated hemodialysis yesterday. 02/23: At the time my examination patient is on assist control tidal volume 550, rate 34, PEEP 16, FiO2 70% and is not sedated. Patient does not follow commands however his eyes open spontaneously and he does not track/focus. 02/24: Neurology consulted, EEG pending. No acute events reported overnight. Patient remains on hyperventilation totaling 550, rate 34, PEEP of 16 on 70% FiO2. Patient received hemodialysis yesterday. 02/25: EEG from 02/24 is suggestive of encephalopathy (toxic metabolic etiology cannot be excluded). This afternoon his peak pressures and and mean airway pressure is elevated so we obtained a CXR and ABG. Results were called to Dr. Masters. Patient received 2 mg of Versed was placed back on his sedation with fentanyl and Precedex. 02/26: Patient is on pressure ventilation FiO2 70%, Pressure inspiration 25, rate 34, PEEP 10 and sedated on fentanyl at 2mcgs and Precedex at 0.2. We will obtain a cxr for evaluation. Patient seems to be much more comfortable today. Hospitalist Physical - Constitutional Vitals: Temp Pulse Resp BP Pulse Ox 98.4 F 105 H 35 H 116/63 97 02/26/21 12:00 02/26/21 11:17 02/26/21 11:00 02/26/21 11:17 02/26/21 11:17 General appearance: Present: no acute distress, other (Sedated on mechanical ventilation) - EENT Eyes: Present: PERRL ENT: poor dentition - Neck Neck: Absent: masses or JVD, cervical LAD - Respiratory Respiratory effort: normal Respiratory: bilateral: diminished - Cardiovascular Rhythm: regular Heart Sounds: Present: S1 & S2. Absent: systolic murmur, diastolic murmur - Extremities Extremities: no ischemia, pulses intact, pulses symmetrical, normal temperature, normal color Extremity abnormal: edema Peripheral Pulses: within normal limits - Abdominal General gastrointestinal: soft, non-tender, non-distended, normal bowel sounds - Integumentary Integumentary: Present: clear, warm - Psychiatric Psychiatric: other (Sedated) - Neurologic Neurologic: other (Dated) - Allied Health Allied health notes reviewed: nursing, RT, social work HEART Score - HEART Score Risk factors: 1-2 risk factors Troponin: < normal limit - Critical Actions Critical Actions: 0-3 pts:0.9-1.7%risk of adverse cardiac event.Candidate for discharge Results - Labs CBC & Chem 7: 02/26/21 05:48 02/26/21 05:48 Labs: Laboratory Last Values WBC 11.4 K/mm3 (4.5-11.0) H 02/26/21 05:48 RBC 2.40 M/mm3 (3.65-5.03) L 02/26/21 05:48 Hgb 7.5 gm/dl (11.8-15.2) L 02/26/21 05:48 Hct 23.2 % (35.5-45.6) L 02/26/21 05:48 MCV 97 fl (84-94) H 02/26/21 05:48 MCH 31 pg (28-32) 02/26/21 05:48 MCHC 32 % (32-34) 02/26/21 05:48 RDW 17.4 % (13.2-15.2) H 02/26/21 05:48 Plt Count 351 K/mm3 (140-440) 02/26/21 05:48 Lymph % (Auto) 11.0 % (13.4-35.0) L 02/15/21 05:00 [place] % (Auto) 4.2 % (0.0-7.3) 02/15/21 05:00 Eos % (Auto) 1.2 % (0.0-4.3) 02/15/21 05:00 Baso % (Auto) 0.6 % (0.0-1.8) 02/15/21 05:00 Lymph # (Auto) 1.1 K/mm3 (1.2-5.4) L 02/15/21 05:00 [place] # (Auto) 0.4 K/mm3 (0.0-0.8) 02/15/21 05:00 Eos # (Auto) 0.1 K/mm3 (0.0-0.4) 02/15/21 05:00 Baso # (Auto) 0.1 K/mm3 (0.0-0.1) 02/15/21 05:00 Add Manual Diff Complete 02/24/21 04:25 Total Counted 100 02/24/21 04:25 Seg Neutrophils % 83.0 % (40.0-70.0) H 02/15/21 05:00 Seg Neuts % (Manual) 82.0 % (40.0-70.0) H 02/24/21 04:25 Band Neutrophils % 2.0 % 02/16/21 Unknown Lymphocytes % (Manual) 3.0 % (13.4-35.0) L 02/24/21 04:25 Reactive Lymphs % (Man) 1.0 % 01/27/21 05:29 Monocytes % (Manual) 11.0 % (0.0-7.3) H 02/24/21 04:25 Eosinophils % (Manual) 1.0 % (0.0-4.3) 02/24/21 04:25 Basophils % (Manual) 1.0 % (0.0-1.8) 02/24/21 04:25 Metamyelocytes % 2.0 % 02/24/21 04:25 Nucleated RBC % Not Reportable 02/24/21 04:25 Seg Neutrophils # 8.6 K/mm3 (1.8-7.7) H 02/15/21 05:00 Seg Neutrophils # Man 9.4 K/mm3 (1.8-7.7) H 02/24/21 04:25 Band Neutrophils # 0.0 K/mm3 02/24/21 04:25 Lymphocytes # (Manual) 0.3 K/mm3 (1.2-5.4) L 02/24/21 04:25 Abs React Lymphs (Man) 0.0 K/mm3 02/24/21 04:25 Monocytes # (Manual) 1.3 K/mm3 (0.0-0.8) H 02/24/21 04:25 Eosinophils # (Manual) 0.1 K/mm3 (0.0-0.4) 02/24/21 04:25 Basophils # (Manual) 0.1 K/mm3 (0.0-0.1) 02/24/21 04:25 Metamyelocytes # 0.2 K/mm3 02/24/21 04:25 Myelocytes # 0.0 K/mm3 02/24/21 04:25 Promyelocytes # 0.0 K/mm3 02/24/21 04:25 Blast Cells # 0.0 K/mm3 02/24/21 04:25 WBC Morphology Not Reportable 02/24/21 04:25 Hypersegmented Neuts Not Reportable 02/24/21 04:25 Hyposegmented Neuts Not Reportable 02/24/21 04:25 Hypogranular Neuts Not Reportable 02/24/21 04:25 Smudge Cells Not Reportable 02/24/21 04:25 Toxic Granulation Not Reportable 02/24/21 04:25 Toxic Vacuolation Not Reportable 02/24/21 04:25 Dohle Bodies Not Reportable 02/24/21 04:25 Pelger-Huet Anomaly Not Reportable 02/24/21 04:25 Fátima Rods Not Reportable 02/24/21 04:25 Platelet Estimate Consistent w auto 02/24/21 04:25 Clumped Platelets Not Reportable 02/24/21 04:25 Plt Clumps, EDTA Not Reportable 02/24/21 04:25 Large Platelets Not Reportable 02/24/21 04:25 Giant Platelets Not Reportable 02/24/21 04:25 Platelet Satelliting Not Reportable 02/24/21 04:25 Plt Morphology Comment Not Reportable 02/24/21 04:25 RBC Morphology Not Reportable 02/24/21 04:25 Dimorphic RBCs Not Reportable 02/24/21 04:25 Polychromasia Few 02/24/21 04:25 Hypochromasia Not Reportable 02/24/21 04:25 Poikilocytosis Not Reportable 02/24/21 04:25 Anisocytosis 1+ 02/24/21 04:25 Microcytosis Not Reportable 02/24/21 04:25 Macrocytosis Not Reportable 02/24/21 04:25 Spherocytes Not Reportable 02/24/21 04:25 Pappenheimer Bodies Not Reportable 02/24/21 04:25 Sickle Cells Not Reportable 02/24/21 04:25 Target Cells Not Reportable 02/24/21 04:25 Tear Drop Cells Not Reportable 02/24/21 04:25 Ovalocytes Not Reportable 02/24/21 04:25 Helmet Cells Not Reportable 02/24/21 04:25 [place] Bodies Not Reportable 02/24/21 04:25 [place] Rings Not Reportable 02/24/21 04:25 [place] Cells Not Reportable 02/24/21 04:25 Bite Cells Not Reportable 02/24/21 04:25 Crenated Cell Not Reportable 02/24/21 04:25 Elliptocytes Not Reportable 02/24/21 04:25 Acanthocytes (Spur) Not Reportable 02/24/21 04:25 Rouleaux Not Reportable 02/24/21 04:25 Hemoglobin C Crystals Not Reportable 02/24/21 04:25 Schistocytes Not Reportable 02/24/21 04:25 Malaria parasites Not Reportable 02/24/21 04:25 Aqu[place] Bodies Not Reportable 02/24/21 04:25 Hem Pathologist Commnt No 02/24/21 04:25 PT 14.9 Sec. (12.2-14.9) 02/11/21 08:27 INR 1.17 (0.87-1.13) H 02/11/21 08:27 D-Dimer 6536.84 ng/mlDDU (0-234) H 02/25/21 09:03 ABG pH 7.228 (7.320-7.450) L 02/26/21 08:00 POC ABG pCO2 70.2 mmHg (32.0-48.0) H 02/26/21 08:00 ABG pCO2 62.7 mm Hg 02/23/21 04:00 POC ABG pO2 79.7 mmHg (83-108) L 02/26/21 08:00 ABG pO2 119.4 mm Hg (80.0-90.0) H 02/23/21 04:00 POC ABG HCO3 28.6 02/26/21 08:00 ABG HCO3 26.6 mmol/L (20.0-26.0) H 02/23/21 04:00 ABG O2 Saturation 94.6 (0-100) 02/26/21 08:00 ABG O2 Content 12.0 (0.0-44) 02/23/21 04:00 POC ABG Base Excess 0.5 02/26/21 08:00 ABG Base Excess -1.2 mmol/L (-2.0-3.0) 02/23/21 04:00 ABG Hemoglobin 7.6 (12.0-17.5) L 02/26/21 08:00 ABG Oxyhemoglobin 93.2 (94-98) L 02/26/21 08:00 ABG Carboxyhemoglobin 1.8 % (0.0-5.0) 02/23/21 04:00 ABG Methemoglobin 0.3 (0.0-1.5) 02/26/21 08:00 ABG Sodium 135.7 mmol/L (136.0-145.0) L 02/26/21 08:00 ABG Potassium 4.0 mmol/L (3.40-4.50) 02/26/21 08:00 ABG Chloride 100.0 mmol/L (98-107) 02/26/21 08:00 ABG Glucose 119 mg/dL (65-95) H 02/26/21 08:00 Oxyhemoglobin 95.4 % (95.0-99.0) 02/23/21 04:00 Carboxyhemoglobin 1.2 (0.5-1.5) 02/26/21 08:00 FiO2 70 % 02/23/21 04:00 FiO2 % 70 02/26/21 08:00 Sodium 137 mmol/L (137-145) 02/26/21 05:48 Potassium 4.3 mmol/L (3.6-5.0) 02/26/21 05:48 Chloride 99.4 mmol/L (98-107) 02/26/21 05:48 Carbon Dioxide 27 mmol/L (22-30) 02/26/21 05:48 Anion Gap 15 mmol/L 02/26/21 05:48 BUN 72 mg/dL (9-20) H 02/26/21 05:48 Creatinine 4.5 mg/dL (0.8-1.3) H 02/26/21 05:48 Estimated GFR 16 ml/min 02/26/21 05:48 BUN/Creatinine Ratio 16 % 02/26/21 05:48 Glucose 112 mg/dL (75-100) H 02/26/21 05:48 POC Glucose 110 mg/dL (70-105) H 02/26/21 11:29 Hemoglobin A1c 6.3 % (4-6) H 02/02/21 16:00 Lactic Acid 1.90 mmol/L (0.7-2.0) 01/24/21 14:38 Calcium 7.7 mg/dL (8.4-10.2) L 02/26/21 05:48 Phosphorus 7.90 mg/dL (2.5-4.5) H 02/21/21 16:35 Magnesium 2.60 mg/dL (1.7-2.3) H 02/21/21 16:35 Ferritin 867.8 ng/mL (30.0-300.0) H 02/26/21 05:48 Total Bilirubin 1.50 mg/dL (0.1-1.2) H 01/26/21 05:47 AST 37 units/L (5-40) 01/26/21 05:47 ALT 29 units/L (7-56) 01/26/21 05:47 Alkaline Phosphatase 70 units/L (35-129) 01/26/21 05:47 Lactate Dehydrogenase 345 units/L (91-180) H 02/19/21 05:45 C-Reactive Protein 5.90 mg/dL (0.00-1.30) H 02/26/21 05:48 Total Protein 7.2 g/dL (6.3-8.2) 01/26/21 05:47 Albumin 2.2 g/dL (3.9-5) L 01/26/21 05:47 Albumin/Globulin Ratio 0.4 % 01/26/21 05:47 Triglycerides 195 mg/dL (2-149) H 02/19/21 05:45 Procalcitonin 18.94 ng/mL (<0.15) 02/16/21 17:09 Arterial Blood Glucose 119 mg/dL (65-95) H 02/26/21 08:00 Arterial Blood Ionized Calcium 4.6 mg/dL (4.6-5.3) 02/26/21 08:00 Urine Color Nehal (Yellow) 01/22/21 22:39 Urine Turbidity Cloudy (Clear) 01/22/21 22:39 Urine pH 5.0 (5.0-7.0) 01/22/21 22:39 Ur Specific [place] 1.017 (1.003-1.030) 01/22/21 22:39 Urine Protein 100 mg/dl mg/dL (Negative) 01/22/21 22:39 Urine Glucose (UA) Neg mg/dL (Negative) 01/22/21 22:39 Urine Ketones Neg mg/dL (Negative) 01/22/21 22:39 Urine Blood Mod (Negative) 01/22/21 22:39 Urine Nitrite Neg (Negative) 01/22/21 22:39 Urine Bilirubin Neg (Negative) 01/22/21 22:39 Urine Urobilinogen 2.0 mg/dL (<2.0) 01/22/21 22:39 Ur Leukocyte Esterase Mod (Negative) 01/22/21 22:39 Urine WBC (Auto) < 1.0 /HPF (0.0-6.0) 01/22/21 22:39 Urine RBC (Auto) < 1.0 /HPF (0.0-6.0) 01/22/21 22:39 U Epithel Cells (Auto) < 1.0 /HPF (0-13.0) 01/22/21 22:39 Urine Osmolality 416 Mosm/kg 01/30/21 12:15 Urine Total Volume 2300 ml 01/30/21 12:00 Urine Creatinine 53.0 mg/dL (0.1-20.0) H 01/30/21 12:00 Ur Creatinine 24 Hour 1.2 (0.8-2.8) 01/30/21 12:00 Urine Sodium 28 mmol/L 01/22/21 22:39 Nasal Screen MRSA (PCR) Negative (Negative) 02/02/21 13:20 Random Vancomycin 13.7 ug/mL (0-40.0) 02/07/21 10:40 Coronavirus (PCR) Positive (Negative) A 02/18/21 10:00 Hepatitis A IgM Ab Non-reactive (NonReactive) 02/03/21 Unknown Hep Bs Antigen Non-reactive (Negative) 02/03/21 Unknown Hep B Core IgM Ab Non-reactive (NonReactive) 02/03/21 Unknown Hepatitis C Antibody Non-reactive (NonReactive) 02/03/21 Unknown Blood Type B POSITIVE 02/17/21 07:45 Antibody Screen Negative 02/17/21 07:45 Crossmatch See Detail 02/17/21 07:45 Black/IV: Voiding Method Incontinent Active Medications - Current Medications Current Medications: Generic Name Dose Route Start Last Admin Trade Name Freq PRN Reason Stop Dose Admin Acetaminophen 650 mg 01/24/21 12:58 02/25/21 13:31 Acetaminophen 325 Mg/10.15 Ml Oral Liqd Unit Dose FEEDTUBE 650 mg Q6H PRN Administration Pain, Mild (1-3) Lipase/Protease/Amylase 1 each 01/26/21 14:25 Lipase 10,500/Protease 25,000/Amylase 43,750 (Units) Dr Cap FEEDTUBE PRN PRN For Clogged Feeding Tube Dextrose 50 ml 01/27/21 07:24 Dextrose 50% In Water (25gm) 50 Ml Syringe IV Q30MIN PRN Hypoglycemia Protocol Fentanyl 50 mcg 01/22/21 22:39 02/25/21 10:25 Fentanyl 100 Mcg/2 Ml Inj IV 50 mcg Q10MIN PRN Administration ANALGESIA Heparin Sodium (Porcine) 2,000 unit 02/11/21 09:38 02/21/21 21:25 Heparin 10,000 Units/10 Ml Vial IV 2,000 unit SAGRARIO PRN Administration hemodialysis Heparin Sodium (Porcine) 5,000 unit 02/19/21 14:00 02/26/21 06:11 Heparin 5,000 Unit/1 Ml Vial SUB-Q 5,000 unit Q8HR CECE Administration Fentanyl Citrate 2,000 mcg in 100 mls @ 6.124 mls/hr 01/22/21 23:00 02/26/21 12:31 Fentanyl Drip Premix IV 2 mcg/kg/hr TITR CECE 12.247 mls/hr Administration Protocol 1 MCG/KG/HR Propofol 1,000 mg in 100 mls @ 3.674 mls/hr 01/22/21 23:45 02/21/21 08:30 Diprivan 10 Mg/Ml IV 0 mcg/kg/min TITR CECE 0 mls/hr Titration Protocol 5 MCG/KG/MIN Norepinephrine 4 mg in 250 mls @ 7.5 mls/hr 01/28/21 14:00 02/22/21 18:27 Levophed Drip 4 Mg/Ns 250 Ml IV 0 mcg/min TITR CECE 0 mls/hr Titration Protocol 2 MCG/MIN Dexmedetomidine HCl 1,000 mcg/ 260 mls @ 6.368 mls/hr 01/30/21 20:00 02/25/21 14:35 Sodium Chloride IV 0.1 mcg/kg/hr TITRATE CECE 3.2 mls/hr Titration Protocol 0.2 MCG/KG/HR Sodium Chloride 100 mls @ 999 mls/hr 02/22/21 13:43 Nacl 0.9% IV S[place]IO PRN Hypotension Lansoprazole 30 mg 02/18/21 10:00 02/26/21 09:46 Lansoprazole 30 Mg Solutab FEEDTUBE 30 mg QDAY CECE Administration Senna/Docusate Sodium 1 tab 02/25/21 10:00 02/26/21 09:46 Sennosides/Docusate Sodium 8.6/50 Mg Tab PO 1 tab BID CECE Administration Simple Syrup 15 ml 01/26/21 14:25 02/21/21 21:24 Simple Syrup 15 Ml FEEDTUBE 15 ml PRN PRN Administration Hypoglycemia Simple Syrup 30 ml 01/26/21 14:25 Simple Syrup 15 Ml FEEDTUBE PRN PRN Hypoglycemia Sodium Bicarbonate 325 mg 01/26/21 14:25 Sodium Bicarbonate 325 Mg Tab FEEDTUBE PRN PRN For Clogged Feeding Tube Nutrition/Malnutrition Assess - Dietary Evaluation Nutrition/Malnutrition Findings: Nutrition Notes Start: 01/26/21 13:59 Freq: Status: Active Protocol: Document 02/26/21 12:19 CW (Rec: 02/26/21 12:45 CW [email or web address]) Nutrition Notes Initial or Follow up Reassessment Current Diagnosis Acute Kidney Injury,Diabetes, Sepsis,Hypertension, Respiratory Failure, Hyperlipidemia Other Pertinent Diagnosis on HD, COVID-19 (+), bilat pneu Current Diet TF - Nepro at 46 ml/hr Labs/Tests BUN 72 Cr 4.5 Pertinent Medications [place] Height 5 ft 8 in Weight 99 kg [place] Body Weight (kg) 70.00 BMI 33.2 Weight change and time frame Some wt change likely r/t to HD. Weight Status Obese Subjective/Other Information TF continue to run at goal and is moderately tolerated. Pt remains on mechanical vent. Burn Absent Trauma Absent GI Symptoms Constipation Difficulty In Swallowing Skin Integrity/Comment pressure ulcer to lips Current % PO Negligible Minimum of two criteria No Fluid Accumulation Moderate to Severe (severe) #2 Nutrition Diagnosis Increased nutrient needs ( specify in comment below) Comments: protein Diagnosis Progress(for reassessment Continues documentation) #1 Nutrition Diagnosis Inadequate oral intake Diagnosis Progress(for reassessment Continues documentation) Is patient on ventilator? Yes Is Patient Ambulatory and/or Out of Bed No REE-([place]. or-confined to bed) 2122.164 Kcal/Kg value to use for calculation 18 Approximate Energy Requirements Using 1782 kcal/Kg Calculation Used for Recommendations Kcal/kg Additional Notes Pro needs >1.2g/kg adjBW: > 115g/day for HD needs Fluid needs 500+ total output or per MD Nutrition Intervention Change Diet Order: Continue TF Nutrition Support: Nepro at 46 ml/hr with a free water flush of 200 ml q4h. Kcal 1,987 Protein (gm) 89 Fluid (mL) 803 Goal #1 TF tolerance Goal #2 TF to meet at least 75% energy and pro needs Anticipated Discharge Needs: unable to determine at this time Follow-Up By: 03/04/21 Additional Comments F/U for TF tolerance
--- NOTE | 2021-02-26 15:17 | XRay Report ---
CHEST 1 VIEW 02/26/2021 2:06 PM INDICATION / CLINICAL INFORMATION: hypoxia. COMPARISON: Chest x-ray 02/25/2021 FINDINGS: SUPPORT DEVICES: Lines and tubes again project in expected position HEART / MEDIASTINUM: No significant abnormality. LUNGS / PLEURA: Moderate right pleural effusion and bilateral parenchymal disease, unchanged. No pneu mothorax. ADDITIONAL FINDINGS: No significant additional findings. IMPRESSION: 1. Stable chest Signer Name: Ponce Bo MD Signed: 02/26/2021 3:12 PM Workstation Name: [email or web address]
--- NOTE | 2021-02-26 18:10 | Progress Note ---
Assessment and Plan Imp: 1. Covid-19 2. Viral pneumonia 3. ARDS 4. Acute respiratory failure, hypoxia 5. Morbid obesity 6. DEISI 7. Anasarca Rec: 1. Cont. current management; wean FiO2 then PEEP; will need trach once ventilator settings allow 2. TFs, GI PPx, SCDs, SubQ heparin 3. HD per renal 4. F/u Neurology recs 5. Transfuse if H/H less than 7.0/21.0 6. Cont. on ACPC; okay with most recent ABG (permissive hypercapnea) 7. Prognosis poor; CCt 31 minutes Subjective Date of service: 02/26/21 Principal diagnosis: DEISI Interval history: No events. Sedated on ventilator, 70% FiO2 and PEEP of +10. Active Medications Acetaminophen (Acetaminophen 325 Mg/10.15 Ml Oral Liqd Unit Dose) 650 mg FEEDTUBE Q6H PRN PRN Reason: Pain, Mild (1-3) Last Admin: 02/25/21 13:31 Dose: 650 mg Documented by: Lipase/Protease/Amylase (Lipase 10,500/Protease 25,000/Amylase 43,750 (Units) Dr Cap) 1 each FEEDTUBE PRN PRN PRN Reason: For Clogged Feeding Tube Dextrose (Dextrose 50% In Water (25gm) 50 Ml Syringe) 50 ml IV Q30MIN PRN; Protocol PRN Reason: Hypoglycemia Fentanyl (Fentanyl 100 Mcg/2 Ml Inj) 50 mcg IV Q10MIN PRN PRN Reason: ANALGESIA Last Admin: 02/25/21 10:25 Dose: 50 mcg Documented by: Heparin Sodium (Porcine) (Heparin 10,000 Units/10 Ml Vial) 2,000 unit IV SAGRARIO PRN PRN Reason: hemodialysis Last Admin: 02/21/21 21:25 Dose: 2,000 unit Documented by: Heparin Sodium (Porcine) (Heparin 5,000 Unit/1 Ml Vial) 5,000 unit SUB-Q Q8HR CECE Last Admin: 02/26/21 14:13 Dose: 5,000 unit Documented by: Fentanyl Citrate (Fentanyl Drip Premix) 2,000 mcg in 100 mls @ 6.124 mls/hr IV TITR CECE; Protocol Last Admin: 02/26/21 12:31 Dose: 2 mcg/kg/hr, 12.247 mls/hr Documented by: Propofol (Diprivan 10 Mg/Ml) 1,000 mg in 100 mls @ 3.674 mls/hr IV TITR CECE; Protocol Last Titration: 02/21/21 08:30 Dose: 0 mcg/kg/min, 0 mls/hr Documented by: Norepinephrine (Levophed Drip 4 Mg/Ns 250 Ml) 4 mg in 250 mls @ 7.5 mls/hr IV TITR CECE; Protocol Last Titration: 02/22/21 18:27 Dose: 0 mcg/min, 0 mls/hr Documented by: Dexmedetomidine HCl 1,000 mcg/ (Sodium Chloride) 260 mls @ 6.368 mls/hr IV TITRATE CECE; Protocol Last Titration: 02/25/21 14:35 Dose: 0.1 mcg/kg/hr, 3.2 mls/hr Documented by: Sodium Chloride (Nacl 0.9%) 100 mls @ 999 mls/hr IV SAGRARIO PRN PRN Reason: Hypotension Lansoprazole (Lansoprazole 30 Mg Solutab) 30 mg FEEDTUBE QDAY CECE Last Admin: 02/26/21 09:46 Dose: 30 mg Documented by: Senna/Docusate Sodium (Sennosides/Docusate Sodium 8.6/50 Mg Tab) 1 tab PO BID CECE Last Admin: 02/26/21 09:46 Dose: 1 tab Documented by: Simple Syrup (Simple Syrup 15 Ml) 15 ml FEEDTUBE PRN PRN PRN Reason: Hypoglycemia Last Admin: 02/21/21 21:24 Dose: 15 ml Documented by: Simple Syrup (Simple Syrup 15 Ml) 30 ml FEEDTUBE PRN PRN PRN Reason: Hypoglycemia Sodium Bicarbonate (Sodium Bicarbonate 325 Mg Tab) 325 mg FEEDTUBE PRN PRN PRN Reason: For Clogged Feeding Tube Objective Vital Signs - 12hr 02/26/21 02/26/21 02/26/21 06:15 06:30 06:45 Temperature Pulse Rate 103 H 103 H 103 H Pulse Rate [ From Monitor] Respiratory 34 H 34 H 35 H Rate Blood Pressure 105/58 108/59 102/56 O2 Sat by Pulse 95 94 95 Oximetry 02/26/21 02/26/21 02/26/21 07:00 07:15 07:30 Temperature Pulse Rate 104 H 105 H 105 H Pulse Rate [ From Monitor] Respiratory 35 H 35 H 36 H Rate Blood Pressure 116/66 114/62 107/59 O2 Sat by Pulse 93 93 93 Oximetry 02/26/21 02/26/21 02/26/21 07:45 07:58 08:00 Temperature 98.2 F Pulse Rate 104 H 105 H 105 H Pulse Rate [ 106 H From Monitor] Respiratory 35 H 35 H Rate Blood Pressure 98/55 103/55 103/55 O2 Sat by Pulse 100 95 94 Oximetry 02/26/21 02/26/21 02/26/21 08:15 08:30 08:45 Temperature Pulse Rate 105 H 104 H 103 H Pulse Rate [ From Monitor] Respiratory 34 H 34 H 35 H Rate Blood Pressure 110/59 109/59 112/60 O2 Sat by Pulse 95 94 94 Oximetry 02/26/21 02/26/21 02/26/21 09:00 09:15 09:30 Temperature Pulse Rate 103 H 103 H 104 H Pulse Rate [ From Monitor] Respiratory 36 H 35 H 22 Rate Blood Pressure 106/58 103/58 118/66 O2 Sat by Pulse 93 93 Oximetry 02/26/21 02/26/21 02/26/21 09:45 10:00 10:15 Temperature Pulse Rate 105 H 105 H 106 H Pulse Rate [ From Monitor] Respiratory 35 H 35 H 37 H Rate Blood Pressure 130/72 126/68 127/69 O2 Sat by Pulse 93 Oximetry 02/26/21 02/26/21 02/26/21 10:30 10:45 11:00 Temperature Pulse Rate 106 H 106 H 106 H Pulse Rate [ From Monitor] Respiratory 34 H 35 H 35 H Rate Blood Pressure 120/64 116/66 114/65 O2 Sat by Pulse 95 96 Oximetry 02/26/21 02/26/21 02/26/21 11:15 11:17 11:30 Temperature Pulse Rate 106 H 105 H 106 H Pulse Rate [ From Monitor] Respiratory 35 H 35 H Rate Blood Pressure 116/63 116/63 120/65 O2 Sat by Pulse 94 97 93 Oximetry 02/26/21 02/26/21 02/26/21 11:45 12:00 12:15 Temperature 98.4 F Pulse Rate 107 H 107 H 108 H Pulse Rate [ 104 H From Monitor] Respiratory 36 H 36 H 35 H Rate Blood Pressure 124/69 127/70 128/72 O2 Sat by Pulse 93 94 Oximetry 02/26/21 02/26/21 02/26/21 12:30 12:45 13:00 Temperature Pulse Rate 108 H 108 H 107 H Pulse Rate [ From Monitor] Respiratory 34 H 35 H 29 H Rate Blood Pressure 131/73 128/74 121/67 O2 Sat by Pulse 95 95 Oximetry 02/26/21 02/26/21 02/26/21 13:15 13:30 13:45 Temperature Pulse Rate 107 H 107 H 107 H Pulse Rate [ From Monitor] Respiratory 34 H 32 H 31 H Rate Blood Pressure 118/68 117/64 114/64 O2 Sat by Pulse 94 94 Oximetry 02/26/21 02/26/21 02/26/21 14:00 14:15 14:30 Temperature Pulse Rate 107 H 107 H 107 H Pulse Rate [ From Monitor] Respiratory 35 H 34 H 35 H Rate Blood Pressure 117/68 117/66 118/65 O2 Sat by Pulse 95 94 Oximetry 02/26/21 02/26/21 02/26/21 14:45 15:00 15:15 Temperature Pulse Rate 107 H 106 H 106 H Pulse Rate [ From Monitor] Respiratory 34 H 34 H 34 H Rate Blood Pressure 117/66 113/65 115/66 O2 Sat by Pulse 95 95 Oximetry 02/26/21 02/26/21 02/26/21 15:17 15:30 15:45 Temperature Pulse Rate 106 H 107 H 108 H Pulse Rate [ From Monitor] Respiratory 35 H 34 H Rate Blood Pressure 115/66 117/64 121/68 O2 Sat by Pulse 97 94 Oximetry 02/26/21 02/26/21 02/26/21 16:00 16:15 16:30 Temperature 99.2 F Pulse Rate 107 H 108 H 108 H Pulse Rate [ 108 H From Monitor] Respiratory 34 H 35 H 28 H Rate Blood Pressure 121/68 119/69 117/64 O2 Sat by Pulse 96 95 95 Oximetry 02/26/21 02/26/21 02/26/21 16:45 17:00 17:15 Temperature Pulse Rate 106 H 108 H Pulse Rate [ From Monitor] Respiratory 34 H 25 H Rate Blood Pressure 115/62 109/64 114/60 O2 Sat by Pulse 96 84 95 Oximetry 02/26/21 17:30 Temperature Pulse Rate 108 H Pulse Rate [ From Monitor] Respiratory 31 H Rate Blood Pressure 131/73 O2 Sat by Pulse 96 Oximetry Constitutional: other (sedated) Eyes: non-icteric ENT: other (orally intubated, critically ill) Neck: supple Effort: mildly labored (tachypneic) Ascultation: Bilateral: other (coarse BS bilaterally) Percussion: Bilateral: not dull Cardiovascular: regular rate and rhythm (no mrg) Gastrointestinal: normoactive bowel sounds Integumentary: normal Extremities: no cyanosis, no edema, pink and warm Neurologic: unable to assess Psychiatric: other (unable to assess) CBC and BMP: 02/26/21 05:48 02/26/21 05:48 ABG, PT/INR, D-dimer: ABG ABG pH 7.228 (7.320-7.450) L 02/26/21 08:00 POC ABG pCO2 70.2 mmHg (32.0-48.0) H 02/26/21 08:00 ABG pCO2 62.7 mm Hg 02/23/21 04:00 POC ABG pO2 79.7 mmHg (83-108) L 02/26/21 08:00 ABG pO2 119.4 mm Hg (80.0-90.0) H 02/23/21 04:00 POC ABG HCO3 28.6 02/26/21 08:00 ABG O2 Saturation 94.6 (0-100) 02/26/21 08:00 PT/INR, D-dimer PT 14.9 Sec. (12.2-14.9) 02/11/21 08:27 INR 1.17 (0.87-1.13) H 02/11/21 08:27 D-Dimer 6536.84 ng/mlDDU (0-234) H 02/25/21 09:03 Abnormal lab findings: Abnormal Labs 01/22/21 01/22/21 01/22/21 22:39 22:57 22:57 WBC RBC Hgb Hct MCV MCH MCHC RDW Plt Count Lymph % (Auto) 6.6 L Lymph # (Auto) 0.5 L Seg Neutrophils % 87.6 H Seg Neuts % (Manual) Lymphocytes % (Manual) Monocytes % (Manual) Nucleated RBC % Seg Neutrophils # Seg Neutrophils # Man Lymphocytes # (Manual) Monocytes # (Manual) Eosinophils # (Manual) INR D-Dimer ABG pH POC ABG pCO2 POC ABG pO2 ABG pO2 ABG HCO3 ABG O2 Saturation ABG Base Excess ABG Hemoglobin ABG Oxyhemoglobin ABG Sodium ABG Potassium ABG Chloride ABG Glucose Oxyhemoglobin Carboxyhemoglobin Sodium 129 L Potassium 3.4 L Chloride 90.4 L Carbon Dioxide BUN 34 H Creatinine 1.5 H Glucose 146 H POC Glucose Hemoglobin A1c Lactic Acid Calcium 7.8 L Phosphorus Magnesium Ferritin Total Bilirubin AST 75 H ALT 57 H Lactate Dehydrogenase C-Reactive Protein Albumin 2.9 L Triglycerides Arterial Blood Glucose Arterial Blood Ionized Calcium Urine Creatinine 301.2 H Coronavirus (PCR) Crossmatch 01/22/21 01/22/21 01/22/21 22:57 22:57 22:57 WBC RBC Hgb Hct MCV MCH MCHC RDW Plt Count Lymph % (Auto) Lymph # (Auto) Seg Neutrophils % Seg Neuts % (Manual) Lymphocytes % (Manual) Monocytes % (Manual) Nucleated RBC % Seg Neutrophils # Seg Neutrophils # Man Lymphocytes # (Manual) Monocytes # (Manual) Eosinophils # (Manual) INR D-Dimer 1173.89 H ABG pH POC ABG pCO2 POC ABG pO2 ABG pO2 ABG HCO3 ABG O2 Saturation ABG Base Excess ABG Hemoglobin ABG Oxyhemoglobin ABG Sodium ABG Potassium ABG Chloride ABG Glucose Oxyhemoglobin Carboxyhemoglobin Sodium Potassium Chloride Carbon Dioxide BUN Creatinine Glucose 149 H POC Glucose Hemoglobin A1c Lactic Acid 2.10 H* Calcium Phosphorus Magnesium Ferritin Total Bilirubin AST ALT Lactate Dehydrogenase 685 H C-Reactive Protein 30.40 H Albumin Triglycerides Arterial Blood Glucose Arterial Blood Ionized Calcium Urine Creatinine Coronavirus (PCR) Crossmatch 01/22/21 01/23/21 01/23/21 22:57 08:41 10:01 WBC RBC Hgb Hct MCV MCH MCHC RDW Plt Count Lymph % (Auto) Lymph # (Auto) Seg Neutrophils % Seg Neuts % (Manual) Lymphocytes % (Manual) Monocytes % (Manual) Nucleated RBC % Seg Neutrophils # Seg Neutrophils # Man Lymphocytes # (Manual) Monocytes # (Manual) Eosinophils # (Manual) INR D-Dimer ABG pH POC ABG pCO2 POC ABG pO2 ABG pO2 ABG HCO3 ABG O2 Saturation ABG Base Excess ABG Hemoglobin ABG Oxyhemoglobin ABG Sodium ABG Potassium ABG Chloride ABG Glucose Oxyhemoglobin Carboxyhemoglobin Sodium 131 L Potassium Chloride 88.7 L Carbon Dioxide 18 L BUN 36 H Creatinine 1.6 H Glucose 147 H POC Glucose Hemoglobin A1c Lactic Acid Calcium 7.5 L Phosphorus Magnesium Ferritin 1207.0 H Total Bilirubin AST ALT Lactate Dehydrogenase C-Reactive Protein Albumin Triglycerides Arterial Blood Glucose Arterial Blood Ionized Calcium Urine Creatinine Coronavirus (PCR) Positive A Crossmatch 01/23/21 01/23/21 01/24/21 20:49 Unknown 00:10 WBC RBC Hgb Hct MCV MCH MCHC RDW Plt Count Lymph % (Auto) Lymph # (Auto) Seg Neutrophils % Seg Neuts % (Manual) Lymphocytes % (Manual) Monocytes % (Manual) Nucleated RBC % Seg Neutrophils # Seg Neutrophils # Man Lymphocytes # (Manual) Monocytes # (Manual) Eosinophils # (Manual) INR D-Dimer ABG pH POC ABG pCO2 POC ABG pO2 ABG pO2 165.4 H ABG HCO3 ABG O2 Saturation ABG Base Excess -2.5 L ABG Hemoglobin ABG Oxyhemoglobin ABG Sodium ABG Potassium ABG Chloride ABG Glucose Oxyhemoglobin Carboxyhemoglobin Sodium 130 L Potassium Chloride 91.0 L Carbon Dioxide 20 L BUN 52 H Creatinine 3.8 H D Glucose 150 H POC Glucose 125 H Hemoglobin A1c Lactic Acid Calcium 8.0 L Phosphorus Magnesium Ferritin Total Bilirubin AST 42 H ALT Lactate Dehydrogenase C-Reactive Protein Albumin 2.4 L Triglycerides Arterial Blood Glucose Arterial Blood Ionized Calcium Urine Creatinine Coronavirus (PCR) Crossmatch 01/24/21 01/24/21 01/24/21 05:05 05:05 05:05 WBC 14.0 H RBC Hgb Hct MCV 95 H MCH 33 H MCHC RDW Plt Count Lymph % (Auto) Lymph # (Auto) Seg Neutrophils % Seg Neuts % (Manual) 91.0 H Lymphocytes % (Manual) 4.0 L Monocytes % (Manual) Nucleated RBC % Seg Neutrophils # Seg Neutrophils # Man 12.7 H Lymphocytes # (Manual) 0.6 L Monocytes # (Manual) Eosinophils # (Manual) INR D-Dimer 6159.48 H ABG pH POC ABG pCO2 POC ABG pO2 ABG pO2 ABG HCO3 ABG O2 Saturation ABG Base Excess ABG Hemoglobin ABG Oxyhemoglobin ABG Sodium ABG Potassium ABG Chloride ABG Glucose Oxyhemoglobin Carboxyhemoglobin Sodium Potassium Chloride Carbon Dioxide BUN Creatinine Glucose POC Glucose Hemoglobin A1c Lactic Acid Calcium Phosphorus Magnesium Ferritin 1178.0 H Total Bilirubin AST ALT Lactate Dehydrogenase C-Reactive Protein Albumin Triglycerides Arterial Blood Glucose Arterial Blood Ionized Calcium Urine Creatinine Coronavirus (PCR) Crossmatch 01/24/21 01/24/21 01/24/21 05:05 05:05 05:05 WBC RBC Hgb Hct MCV MCH MCHC RDW Plt Count Lymph % (Auto) Lymph # (Auto) Seg Neutrophils % Seg Neuts % (Manual) Lymphocytes % (Manual) Monocytes % (Manual) Nucleated RBC % Seg Neutrophils # Seg Neutrophils # Man Lymphocytes # (Manual) Monocytes # (Manual) Eosinophils # (Manual) INR D-Dimer ABG pH POC ABG pCO2 POC ABG pO2 ABG pO2 ABG HCO3 ABG O2 Saturation ABG Base Excess ABG Hemoglobin ABG Oxyhemoglobin ABG Sodium ABG Potassium ABG Chloride ABG Glucose Oxyhemoglobin Carboxyhemoglobin Sodium 132 L Potassium Chloride 93.1 L Carbon Dioxide 21 L BUN 57 H Creatinine 3.7 H Glucose 133 H POC Glucose Hemoglobin A1c Lactic Acid 2.20 H* Calcium 7.7 L Phosphorus Magnesium Ferritin Total Bilirubin AST ALT Lactate Dehydrogenase 658 H C-Reactive Protein 33.20 H Albumin 2.4 L Triglycerides Arterial Blood Glucose Arterial Blood Ionized Calcium Urine Creatinine Coronavirus (PCR) Crossmatch 01/24/21 01/24/21 01/24/21 05:34 06:00 17:35 WBC RBC Hgb Hct MCV MCH MCHC RDW Plt Count Lymph % (Auto) Lymph # (Auto) Seg Neutrophils % Seg Neuts % (Manual) Lymphocytes % (Manual) Monocytes % (Manual) Nucleated RBC % Seg Neutrophils # Seg Neutrophils # Man Lymphocytes # (Manual) Monocytes # (Manual) Eosinophils # (Manual) INR D-Dimer ABG pH POC ABG pCO2 POC ABG pO2 ABG pO2 ABG HCO3 ABG O2 Saturation ABG Base Excess ABG Hemoglobin ABG Oxyhemoglobin ABG Sodium ABG Potassium ABG Chloride ABG Glucose Oxyhemoglobin Carboxyhemoglobin Sodium Potassium Chloride Carbon Dioxide BUN Creatinine Glucose POC Glucose 136 H 137 H Hemoglobin A1c Lactic Acid Calcium Phosphorus Magnesium 2.80 H Ferritin Total Bilirubin AST ALT Lactate Dehydrogenase C-Reactive Protein Albumin Triglycerides Arterial Blood Glucose Arterial Blood Ionized Calcium Urine Creatinine Coronavirus (PCR) Crossmatch 01/25/21 01/25/21 01/25/21 04:15 05:40 05:40 WBC RBC Hgb Hct MCV 95 H MCH 33 H MCHC 35 H RDW Plt Count Lymph % (Auto) Lymph # (Auto) Seg Neutrophils % Seg Neuts % (Manual) 95.0 H Lymphocytes % (Manual) 3.0 L Monocytes % (Manual) Nucleated RBC % Seg Neutrophils # Seg Neutrophils # Man 7.8 H Lymphocytes # (Manual) 0.2 L Monocytes # (Manual) Eosinophils # (Manual) INR D-Dimer ABG pH POC ABG pCO2 POC ABG pO2 63.2 L ABG pO2 ABG HCO3 ABG O2 Saturation ABG Base Excess ABG Hemoglobin ABG Oxyhemoglobin 89.6 L ABG Sodium ABG Potassium ABG Chloride ABG Glucose 165 H Oxyhemoglobin Carboxyhemoglobin 0.3 L Sodium Potassium Chloride Carbon Dioxide BUN 67 H Creatinine 3.4 H Glucose 153 H POC Glucose Hemoglobin A1c Lactic Acid Calcium 7.5 L Phosphorus Magnesium Ferritin Total Bilirubin 1.40 H AST 62 H ALT Lactate Dehydrogenase C-Reactive Protein Albumin 2.6 L Triglycerides Arterial Blood Glucose 165 H Arterial Blood Ionized Calcium 4.3 L Urine Creatinine Coronavirus (PCR) Crossmatch 01/25/21 01/25/21 01/25/21 05:59 12:00 17:17 WBC RBC Hgb Hct MCV MCH MCHC RDW Plt Count Lymph % (Auto) Lymph # (Auto) Seg Neutrophils % Seg Neuts % (Manual) Lymphocytes % (Manual) Monocytes % (Manual) Nucleated RBC % Seg Neutrophils # Seg Neutrophils # Man Lymphocytes # (Manual) Monocytes # (Manual) Eosinophils # (Manual) INR D-Dimer ABG pH POC ABG pCO2 POC ABG pO2 ABG pO2 ABG HCO3 ABG O2 Saturation ABG Base Excess ABG Hemoglobin ABG Oxyhemoglobin ABG Sodium ABG Potassium ABG Chloride ABG Glucose Oxyhemoglobin Carboxyhemoglobin Sodium Potassium Chloride Carbon Dioxide BUN Creatinine Glucose POC Glucose 140 H 143 H 149 H Hemoglobin A1c Lactic Acid Calcium Phosphorus Magnesium Ferritin Total Bilirubin AST ALT Lactate Dehydrogenase C-Reactive Protein Albumin Triglycerides Arterial Blood Glucose Arterial Blood Ionized Calcium Urine Creatinine Coronavirus (PCR) Crossmatch 01/25/21 01/26/21 01/26/21 23:41 03:43 05:46 WBC RBC Hgb Hct MCV MCH MCHC RDW Plt Count Lymph % (Auto) Lymph # (Auto) Seg Neutrophils % Seg Neuts % (Manual) Lymphocytes % (Manual) Monocytes % (Manual) Nucleated RBC % Seg Neutrophils # Seg Neutrophils # Man Lymphocytes # (Manual) Monocytes # (Manual) Eosinophils # (Manual) INR D-Dimer ABG pH POC ABG pCO2 POC ABG pO2 70.0 L ABG pO2 ABG HCO3 ABG O2 Saturation ABG Base Excess ABG Hemoglobin ABG Oxyhemoglobin 91.9 L ABG Sodium ABG Potassium ABG Chloride 109.0 H ABG Glucose 165 H Oxyhemoglobin Carboxyhemoglobin Sodium Potassium Chloride Carbon Dioxide BUN Creatinine Glucose POC Glucose 132 H 161 H Hemoglobin A1c Lactic Acid Calcium Phosphorus Magnesium Ferritin Total Bilirubin AST ALT Lactate Dehydrogenase C-Reactive Protein Albumin Triglycerides Arterial Blood Glucose 165 H Arterial Blood Ionized Calcium 4.5 L Urine Creatinine Coronavirus (PCR) Crossmatch 01/26/21 01/26/21 01/26/21 05:47 05:47 05:47 WBC RBC Hgb Hct 35.3 L MCV 96 H MCH 33 H MCHC RDW Plt Count Lymph % (Auto) Lymph # (Auto) Seg Neutrophils % Seg Neuts % (Manual) 96.0 H Lymphocytes % (Manual) 2.0 L Monocytes % (Manual) Nucleated RBC % Seg Neutrophils # Seg Neutrophils # Man Lymphocytes # (Manual) 0.1 L Monocytes # (Manual) Eosinophils # (Manual) INR D-Dimer > 20735 H ABG pH POC ABG pCO2 POC ABG pO2 ABG pO2 ABG HCO3 ABG O2 Saturation ABG Base Excess ABG Hemoglobin ABG Oxyhemoglobin ABG Sodium ABG Potassium ABG Chloride ABG Glucose Oxyhemoglobin Carboxyhemoglobin Sodium Potassium Chloride Carbon Dioxide BUN 57 H Creatinine 2.2 H Glucose 185 H POC Glucose Hemoglobin A1c Lactic Acid Calcium 8.1 L Phosphorus Magnesium Ferritin Total Bilirubin AST ALT Lactate Dehydrogenase C-Reactive Protein Albumin Triglycerides Arterial Blood Glucose Arterial Blood Ionized Calcium Urine Creatinine Coronavirus (PCR) Crossmatch 01/26/21 01/26/21 01/26/21 05:47 05:47 05:47 WBC RBC Hgb Hct MCV MCH MCHC RDW Plt Count Lymph % (Auto) Lymph # (Auto) Seg Neutrophils % Seg Neuts % (Manual) Lymphocytes % (Manual) Monocytes % (Manual) Nucleated RBC % Seg Neutrophils # Seg Neutrophils # Man Lymphocytes # (Manual) Monocytes # (Manual) Eosinophils # (Manual) INR D-Dimer ABG pH POC ABG pCO2 POC ABG pO2 ABG pO2 ABG HCO3 ABG O2 Saturation ABG Base Excess ABG Hemoglobin ABG Oxyhemoglobin ABG Sodium ABG Potassium ABG Chloride ABG Glucose Oxyhemoglobin Carboxyhemoglobin Sodium Potassium Chloride 107.1 H Carbon Dioxide BUN 56 H Creatinine 2.2 H Glucose 188 H POC Glucose Hemoglobin A1c Lactic Acid Calcium 8.0 L Phosphorus Magnesium Ferritin 1178.0 H Total Bilirubin 1.50 H AST ALT Lactate Dehydrogenase 588 H C-Reactive Protein 40.10 H Albumin 2.2 L Triglycerides Arterial Blood Glucose Arterial Blood Ionized Calcium Urine Creatinine Coronavirus (PCR) Crossmatch 01/26/21 01/26/21 01/26/21 11:34 18:17 23:20 WBC RBC Hgb Hct MCV MCH MCHC RDW Plt Count Lymph % (Auto) Lymph # (Auto) Seg Neutrophils % Seg Neuts % (Manual) Lymphocytes % (Manual) Monocytes % (Manual) Nucleated RBC % Seg Neutrophils # Seg Neutrophils # Man Lymphocytes # (Manual) Monocytes # (Manual) Eosinophils # (Manual) INR D-Dimer ABG pH POC ABG pCO2 POC ABG pO2 ABG pO2 ABG HCO3 ABG O2 Saturation ABG Base Excess ABG Hemoglobin ABG Oxyhemoglobin ABG Sodium ABG Potassium ABG Chloride ABG Glucose Oxyhemoglobin Carboxyhemoglobin Sodium Potassium Chloride Carbon Dioxide BUN Creatinine Glucose POC Glucose 129 H 205 H 155 H Hemoglobin A1c Lactic Acid Calcium Phosphorus Magnesium Ferritin Total Bilirubin AST ALT Lactate Dehydrogenase C-Reactive Protein Albumin Triglycerides Arterial Blood Glucose Arterial Blood Ionized Calcium Urine Creatinine Coronavirus (PCR) Crossmatch 01/27/21 01/27/21 01/27/21 02:45 05:29 05:29 WBC RBC 3.58 L Hgb 11.7 L Hct 34.9 L MCV 97 H MCH 33 H MCHC RDW Plt Count Lymph % (Auto) Lymph # (Auto) Seg Neutrophils % Seg Neuts % (Manual) 88.0 H Lymphocytes % (Manual) 7.0 L Monocytes % (Manual) Nucleated RBC % Seg Neutrophils # Seg Neutrophils # Man Lymphocytes # (Manual) 0.5 L Monocytes # (Manual) Eosinophils # (Manual) INR D-Dimer ABG pH 7.319 L POC ABG pCO2 50.7 H POC ABG pO2 63.0 L ABG pO2 ABG HCO3 ABG O2 Saturation ABG Base Excess ABG Hemoglobin ABG Oxyhemoglobin ABG Sodium 145.2 H ABG Potassium 5.1 H ABG Chloride 114.0 H ABG Glucose 178 H Oxyhemoglobin Carboxyhemoglobin Sodium Potassium Chloride Carbon Dioxide BUN Creatinine Glucose POC Glucose Hemoglobin A1c Lactic Acid Calcium Phosphorus Magnesium 4.00 H Ferritin Total Bilirubin AST ALT Lactate Dehydrogenase C-Reactive Protein Albumin Triglycerides Arterial Blood Glucose 178 H Arterial Blood Ionized Calcium Urine Creatinine Coronavirus (PCR) Crossmatch 01/27/21 01/27/21 01/27/21 05:29 05:29 05:31 WBC RBC Hgb Hct MCV MCH MCHC RDW Plt Count Lymph % (Auto) Lymph # (Auto) Seg Neutrophils % Seg Neuts % (Manual) Lymphocytes % (Manual) Monocytes % (Manual) Nucleated RBC % Seg Neutrophils # Seg Neutrophils # Man Lymphocytes # (Manual) Monocytes # (Manual) Eosinophils # (Manual) INR D-Dimer ABG pH POC ABG pCO2 POC ABG pO2 ABG pO2 ABG HCO3 ABG O2 Saturation ABG Base Excess ABG Hemoglobin ABG Oxyhemoglobin ABG Sodium ABG Potassium ABG Chloride ABG Glucose Oxyhemoglobin Carboxyhemoglobin Sodium Potassium 5.2 H Chloride 109.6 H Carbon Dioxide BUN 67 H Creatinine 2.8 H Glucose 195 H POC Glucose 176 H Hemoglobin A1c Lactic Acid Calcium 7.9 L Phosphorus Magnesium Ferritin Total Bilirubin AST ALT Lactate Dehydrogenase C-Reactive Protein Albumin Triglycerides 160 H Arterial Blood Glucose Arterial Blood Ionized Calcium Urine Creatinine Coronavirus (PCR) Crossmatch 01/27/21 01/27/21 01/27/21 11:27 18:08 23:30 WBC RBC Hgb Hct MCV MCH MCHC RDW Plt Count Lymph % (Auto) Lymph # (Auto) Seg Neutrophils % Seg Neuts % (Manual) Lymphocytes % (Manual) Monocytes % (Manual) Nucleated RBC % Seg Neutrophils # Seg Neutrophils # Man Lymphocytes # (Manual) Monocytes # (Manual) Eosinophils # (Manual) INR D-Dimer ABG pH POC ABG pCO2 POC ABG pO2 ABG pO2 ABG HCO3 ABG O2 Saturation ABG Base Excess ABG Hemoglobin ABG Oxyhemoglobin ABG Sodium ABG Potassium ABG Chloride ABG Glucose Oxyhemoglobin Carboxyhemoglobin Sodium Potassium Chloride Carbon Dioxide BUN Creatinine Glucose POC Glucose 189 H 212 H 175 H Hemoglobin A1c Lactic Acid Calcium Phosphorus Magnesium Ferritin Total Bilirubin AST ALT Lactate Dehydrogenase C-Reactive Protein Albumin Triglycerides Arterial Blood Glucose Arterial Blood Ionized Calcium Urine Creatinine Coronavirus (PCR) Crossmatch 01/28/21 01/28/21 01/28/21 03:58 04:00 04:00 WBC RBC Hgb Hct MCV MCH MCHC RDW Plt Count Lymph % (Auto) Lymph # (Auto) Seg Neutrophils % Seg Neuts % (Manual) Lymphocytes % (Manual) Monocytes % (Manual) Nucleated RBC % Seg Neutrophils # Seg Neutrophils # Man Lymphocytes # (Manual) Monocytes # (Manual) Eosinophils # (Manual) INR D-Dimer > 47904 H ABG pH POC ABG pCO2 POC ABG pO2 52.9 L ABG pO2 ABG HCO3 ABG O2 Saturation ABG Base Excess ABG Hemoglobin ABG Oxyhemoglobin 84.1 L ABG Sodium 148.9 H ABG Potassium ABG Chloride 117.0 H ABG Glucose 194 H Oxyhemoglobin Carboxyhemoglobin Sodium Potassium Chloride Carbon Dioxide BUN Creatinine Glucose POC Glucose Hemoglobin A1c Lactic Acid Calcium Phosphorus Magnesium Ferritin Total Bilirubin AST ALT Lactate Dehydrogenase 679 H C-Reactive Protein 17.10 H Albumin Triglycerides Arterial Blood Glucose 194 H Arterial Blood Ionized Calcium Urine Creatinine Coronavirus (PCR) Crossmatch 01/28/21 01/28/21 01/28/21 04:00 05:00 06:00 WBC RBC 3.59 L Hgb 11.6 L Hct 34.8 L MCV 97 H MCH MCHC RDW Plt Count Lymph % (Auto) Lymph # (Auto) Seg Neutrophils % Seg Neuts % (Manual) 96.0 H Lymphocytes % (Manual) 3.0 L Monocytes % (Manual) Nucleated RBC % Seg Neutrophils # Seg Neutrophils # Man Lymphocytes # (Manual) 0.2 L Monocytes # (Manual) Eosinophils # (Manual) INR D-Dimer ABG pH POC ABG pCO2 POC ABG pO2 ABG pO2 ABG HCO3 ABG O2 Saturation ABG Base Excess ABG Hemoglobin ABG Oxyhemoglobin ABG Sodium ABG Potassium ABG Chloride ABG Glucose Oxyhemoglobin Carboxyhemoglobin Sodium Potassium Chloride Carbon Dioxide BUN Creatinine Glucose POC Glucose 159 H Hemoglobin A1c Lactic Acid Calcium Phosphorus Magnesium Ferritin 798.0 H Total Bilirubin AST ALT Lactate Dehydrogenase C-Reactive Protein Albumin Triglycerides Arterial Blood Glucose Arterial Blood Ionized Calcium Urine Creatinine Coronavirus (PCR) Crossmatch 01/28/21 01/28/21 01/28/21 06:00 06:00 08:12 WBC RBC Hgb Hct MCV MCH MCHC RDW Plt Count Lymph % (Auto) Lymph # (Auto) Seg Neutrophils % Seg Neuts % (Manual) Lymphocytes % (Manual) Monocytes % (Manual) Nucleated RBC % Seg Neutrophils # Seg Neutrophils # Man Lymphocytes # (Manual) Monocytes # (Manual) Eosinophils # (Manual) INR D-Dimer ABG pH POC ABG pCO2 POC ABG pO2 ABG pO2 ABG HCO3 ABG O2 Saturation ABG Base Excess ABG Hemoglobin ABG Oxyhemoglobin ABG Sodium ABG Potassium ABG Chloride ABG Glucose Oxyhemoglobin Carboxyhemoglobin Sodium Potassium Chloride 111.9 H Carbon Dioxide BUN 59 H Creatinine 2.2 H Glucose 189 H POC Glucose 181 H Hemoglobin A1c Lactic Acid Calcium 8.1 L Phosphorus Magnesium 3.20 H Ferritin Total Bilirubin AST ALT Lactate Dehydrogenase C-Reactive Protein Albumin Triglycerides Arterial Blood Glucose Arterial Blood Ionized Calcium Urine Creatinine Coronavirus (PCR) Crossmatch 01/28/21 01/28/21 01/28/21 12:03 16:43 23:51 WBC RBC Hgb Hct MCV MCH MCHC RDW Plt Count Lymph % (Auto) Lymph # (Auto) Seg Neutrophils % Seg Neuts % (Manual) Lymphocytes % (Manual) Monocytes % (Manual) Nucleated RBC % Seg Neutrophils # Seg Neutrophils # Man Lymphocytes # (Manual) Monocytes # (Manual) Eosinophils # (Manual) INR D-Dimer ABG pH POC ABG pCO2 POC ABG pO2 ABG pO2 ABG HCO3 ABG O2 Saturation ABG Base Excess ABG Hemoglobin ABG Oxyhemoglobin ABG Sodium ABG Potassium ABG Chloride ABG Glucose Oxyhemoglobin Carboxyhemoglobin Sodium Potassium Chloride Carbon Dioxide BUN Creatinine Glucose POC Glucose 164 H 198 H 196 H Hemoglobin A1c Lactic Acid Calcium Phosphorus Magnesium Ferritin Total Bilirubin AST ALT Lactate Dehydrogenase C-Reactive Protein Albumin Triglycerides Arterial Blood Glucose Arterial Blood Ionized Calcium Urine Creatinine Coronavirus (PCR) Crossmatch 01/29/21 01/29/21 01/29/21 05:00 05:23 06:00 WBC RBC Hgb Hct MCV MCH MCHC RDW Plt Count Lymph % (Auto) Lymph # (Auto) Seg Neutrophils % Seg Neuts % (Manual) Lymphocytes % (Manual) Monocytes % (Manual) Nucleated RBC % Seg Neutrophils # Seg Neutrophils # Man Lymphocytes # (Manual) Monocytes # (Manual) Eosinophils # (Manual) INR D-Dimer ABG pH 7.119 L POC ABG pCO2 87.1 H POC ABG pO2 ABG pO2 ABG HCO3 ABG O2 Saturation ABG Base Excess ABG Hemoglobin ABG Oxyhemoglobin ABG Sodium 152.5 H ABG Potassium 5.7 H ABG Chloride 120.0 H ABG Glucose 217 H Oxyhemoglobin Carboxyhemoglobin Sodium 151 H Potassium 5.9 H D Chloride 117.8 H Carbon Dioxide BUN 54 H Creatinine 2.2 H Glucose 208 H POC Glucose 180 H Hemoglobin A1c Lactic Acid Calcium 7.9 L Phosphorus Magnesium Ferritin Total Bilirubin AST ALT Lactate Dehydrogenase C-Reactive Protein Albumin Triglycerides Arterial Blood Glucose 217 H Arterial Blood Ionized Calcium Urine Creatinine Coronavirus (PCR) Crossmatch 01/29/21 01/29/21 01/29/21 12:29 17:28 18:05 WBC RBC Hgb Hct MCV MCH MCHC RDW Plt Count Lymph % (Auto) Lymph # (Auto) Seg Neutrophils % Seg Neuts % (Manual) Lymphocytes % (Manual) Monocytes % (Manual) Nucleated RBC % Seg Neutrophils # Seg Neutrophils # Man Lymphocytes # (Manual) Monocytes # (Manual) Eosinophils # (Manual) INR D-Dimer ABG pH POC ABG pCO2 POC ABG pO2 ABG pO2 ABG HCO3 ABG O2 Saturation ABG Base Excess ABG Hemoglobin ABG Oxyhemoglobin ABG Sodium ABG Potassium ABG Chloride ABG Glucose Oxyhemoglobin Carboxyhemoglobin Sodium 151 H Potassium 5.5 H Chloride 118.2 H Carbon Dioxide BUN 52 H Creatinine 2.2 H Glucose 224 H POC Glucose 181 H 203 H Hemoglobin A1c Lactic Acid Calcium 8.0 L Phosphorus Magnesium Ferritin Total Bilirubin AST ALT Lactate Dehydrogenase C-Reactive Protein Albumin Triglycerides Arterial Blood Glucose Arterial Blood Ionized Calcium Urine Creatinine Coronavirus (PCR) Crossmatch 01/29/21 01/29/21 01/29/21 18:13 23:34 Unknown WBC RBC Hgb Hct MCV 101 H MCH MCHC RDW 15.7 H Plt Count Lymph % (Auto) Lymph # (Auto) Seg Neutrophils % Seg Neuts % (Manual) 95.0 H Lymphocytes % (Manual) 3.0 L Monocytes % (Manual) Nucleated RBC % Seg Neutrophils # Seg Neutrophils # Man 8.0 H Lymphocytes # (Manual) 0.3 L Monocytes # (Manual) Eosinophils # (Manual) INR D-Dimer ABG pH 7.223 L POC ABG pCO2 64.8 H POC ABG pO2 63.6 L ABG pO2 ABG HCO3 ABG O2 Saturation ABG Base Excess ABG Hemoglobin ABG Oxyhemoglobin 89.4 L ABG Sodium 152.9 H ABG Potassium 5.3 H ABG Chloride 121.0 H ABG Glucose 227 H Oxyhemoglobin Carboxyhemoglobin Sodium Potassium Chloride Carbon Dioxide BUN Creatinine Glucose POC Glucose 198 H Hemoglobin A1c Lactic Acid Calcium Phosphorus Magnesium Ferritin Total Bilirubin AST ALT Lactate Dehydrogenase C-Reactive Protein Albumin Triglycerides Arterial Blood Glucose 227 H Arterial Blood Ionized Calcium Urine Creatinine Coronavirus (PCR) Crossmatch 01/30/21 01/30/21 01/30/21 04:00 04:00 04:00 WBC RBC Hgb Hct MCV MCH MCHC RDW Plt Count Lymph % (Auto) Lymph # (Auto) Seg Neutrophils % Seg Neuts % (Manual) Lymphocytes % (Manual) Monocytes % (Manual) Nucleated RBC % Seg Neutrophils # Seg Neutrophils # Man Lymphocytes # (Manual) Monocytes # (Manual) Eosinophils # (Manual) INR D-Dimer > 16991 H ABG pH POC ABG pCO2 POC ABG pO2 ABG pO2 ABG HCO3 ABG O2 Saturation ABG Base Excess ABG Hemoglobin ABG Oxyhemoglobin ABG Sodium ABG Potassium ABG Chloride ABG Glucose Oxyhemoglobin Carboxyhemoglobin Sodium Potassium Chloride Carbon Dioxide BUN Creatinine Glucose 234 H POC Glucose Hemoglobin A1c Lactic Acid Calcium Phosphorus Magnesium Ferritin 763.9 H Total Bilirubin AST ALT Lactate Dehydrogenase 424 H C-Reactive Protein 23.90 H Albumin Triglycerides Arterial Blood Glucose Arterial Blood Ionized Calcium Urine Creatinine Coronavirus (PCR) Crossmatch 01/30/21 01/30/21 01/30/21 04:24 05:00 05:16 WBC RBC 3.57 L Hgb 11.3 L Hct 35.4 L MCV 99 H MCH MCHC RDW 15.6 H Plt Count Lymph % (Auto) Lymph # (Auto) Seg Neutrophils % Seg Neuts % (Manual) 97.0 H Lymphocytes % (Manual) 1.0 L Monocytes % (Manual) Nucleated RBC % Seg Neutrophils # Seg Neutrophils # Man 8.6 H Lymphocytes # (Manual) 0.1 L Monocytes # (Manual) Eosinophils # (Manual) INR D-Dimer ABG pH 7.235 L POC ABG pCO2 69.7 H POC ABG pO2 61.0 L ABG pO2 ABG HCO3 ABG O2 Saturation ABG Base Excess ABG Hemoglobin ABG Oxyhemoglobin 89 L ABG Sodium 154.2 H ABG Potassium 5.4 H ABG Chloride 121.0 H ABG Glucose 247 H Oxyhemoglobin Carboxyhemoglobin Sodium Potassium Chloride Carbon Dioxide BUN Creatinine Glucose POC Glucose 238 H Hemoglobin A1c Lactic Acid Calcium Phosphorus Magnesium Ferritin Total Bilirubin AST ALT Lactate Dehydrogenase C-Reactive Protein Albumin Triglycerides Arterial Blood Glucose 247 H Arterial Blood Ionized Calcium Urine Creatinine Coronavirus (PCR) Crossmatch 01/30/21 01/30/21 01/30/21 06:00 11:28 12:00 WBC RBC Hgb Hct MCV MCH MCHC RDW Plt Count Lymph % (Auto) Lymph # (Auto) Seg Neutrophils % Seg Neuts % (Manual) Lymphocytes % (Manual) Monocytes % (Manual) Nucleated RBC % Seg Neutrophils # Seg Neutrophils # Man Lymphocytes # (Manual) Monocytes # (Manual) Eosinophils # (Manual) INR D-Dimer ABG pH POC ABG pCO2 POC ABG pO2 ABG pO2 ABG HCO3 ABG O2 Saturation ABG Base Excess ABG Hemoglobin ABG Oxyhemoglobin ABG Sodium ABG Potassium ABG Chloride ABG Glucose Oxyhemoglobin Carboxyhemoglobin Sodium 152 H Potassium 5.3 H Chloride 120.5 H Carbon Dioxide BUN 50 H Creatinine 2.3 H Glucose 239 H POC Glucose 153 H Hemoglobin A1c Lactic Acid Calcium 8.2 L Phosphorus Magnesium 2.60 H Ferritin Total Bilirubin AST ALT Lactate Dehydrogenase C-Reactive Protein Albumin Triglycerides 293 H Arterial Blood Glucose Arterial Blood Ionized Calcium Urine Creatinine 53.0 H Coronavirus (PCR) Crossmatch 01/30/21 01/30/21 01/31/21 18:49 23:06 04:00 WBC RBC Hgb Hct MCV MCH MCHC RDW Plt Count Lymph % (Auto) Lymph # (Auto) Seg Neutrophils % Seg Neuts % (Manual) Lymphocytes % (Manual) Monocytes % (Manual) Nucleated RBC % Seg Neutrophils # Seg Neutrophils # Man Lymphocytes # (Manual) Monocytes # (Manual) Eosinophils # (Manual) INR D-Dimer ABG pH POC ABG pCO2 POC ABG pO2 ABG pO2 ABG HCO3 ABG O2 Saturation ABG Base Excess ABG Hemoglobin ABG Oxyhemoglobin ABG Sodium ABG Potassium ABG Chloride ABG Glucose Oxyhemoglobin Carboxyhemoglobin Sodium 156 H Potassium 5.9 H Chloride 122.6 H Carbon Dioxide BUN 61 H Creatinine 3.2 H Glucose 205 H POC Glucose 220 H 192 H Hemoglobin A1c Lactic Acid Calcium 8.0 L Phosphorus Magnesium Ferritin Total Bilirubin AST ALT Lactate Dehydrogenase C-Reactive Protein Albumin Triglycerides Arterial Blood Glucose Arterial Blood Ionized Calcium Urine Creatinine Coronavirus (PCR) Crossmatch 01/31/21 01/31/21 01/31/21 04:40 05:17 11:33 WBC RBC Hgb Hct MCV MCH MCHC RDW Plt Count Lymph % (Auto) Lymph # (Auto) Seg Neutrophils % Seg Neuts % (Manual) Lymphocytes % (Manual) Monocytes % (Manual) Nucleated RBC % Seg Neutrophils # Seg Neutrophils # Man Lymphocytes # (Manual) Monocytes # (Manual) Eosinophils # (Manual) INR D-Dimer ABG pH 7.161 L* POC ABG pCO2 POC ABG pO2 ABG pO2 142.2 H ABG HCO3 28.3 H ABG O2 Saturation ABG Base Excess -3.2 L ABG Hemoglobin ABG Oxyhemoglobin ABG Sodium ABG Potassium ABG Chloride ABG Glucose Oxyhemoglobin Carboxyhemoglobin Sodium Potassium Chloride Carbon Dioxide BUN Creatinine Glucose POC Glucose 200 H 167 H Hemoglobin A1c Lactic Acid Calcium Phosphorus Magnesium Ferritin Total Bilirubin AST ALT Lactate Dehydrogenase C-Reactive Protein Albumin Triglycerides Arterial Blood Glucose Arterial Blood Ionized Calcium Urine Creatinine Coronavirus (PCR) Crossmatch 01/31/21 01/31/21 01/31/21 14:00 17:10 23:24 WBC RBC Hgb Hct MCV MCH MCHC RDW Plt Count Lymph % (Auto) Lymph # (Auto) Seg Neutrophils % Seg Neuts % (Manual) Lymphocytes % (Manual) Monocytes % (Manual) Nucleated RBC % Seg Neutrophils # Seg Neutrophils # Man Lymphocytes # (Manual) Monocytes # (Manual) Eosinophils # (Manual) INR D-Dimer ABG pH 7.205 L POC ABG pCO2 POC ABG pO2 ABG pO2 90.9 H ABG HCO3 26.5 H ABG O2 Saturation ABG Base Excess -2.7 L ABG Hemoglobin 12.3 L ABG Oxyhemoglobin ABG Sodium ABG Potassium ABG Chloride ABG Glucose Oxyhemoglobin 93.9 L Carboxyhemoglobin Sodium Potassium Chloride Carbon Dioxide BUN Creatinine Glucose POC Glucose 190 H 203 H Hemoglobin A1c Lactic Acid Calcium Phosphorus Magnesium Ferritin Total Bilirubin AST ALT Lactate Dehydrogenase C-Reactive Protein Albumin Triglycerides Arterial Blood Glucose Arterial Blood Ionized Calcium Urine Creatinine Coronavirus (PCR) Crossmatch 02/01/21 02/01/21 02/01/21 05:15 06:22 10:20 WBC RBC Hgb Hct MCV MCH MCHC RDW Plt Count Lymph % (Auto) Lymph # (Auto) Seg Neutrophils % Seg Neuts % (Manual) Lymphocytes % (Manual) Monocytes % (Manual) Nucleated RBC % Seg Neutrophils # Seg Neutrophils # Man Lymphocytes # (Manual) Monocytes # (Manual) Eosinophils # (Manual) INR D-Dimer ABG pH 6.920 L* 7.116 L* POC ABG pCO2 POC ABG pO2 ABG pO2 102.9 H 113.1 H ABG HCO3 28.2 H ABG O2 Saturation 92.9 L ABG Base Excess -6.9 L -5.8 L ABG Hemoglobin 11.6 L 9.5 L ABG Oxyhemoglobin ABG Sodium ABG Potassium ABG Chloride ABG Glucose Oxyhemoglobin 90.5 L 94.6 L Carboxyhemoglobin Sodium Potassium Chloride Carbon Dioxide BUN Creatinine Glucose POC Glucose 221 H Hemoglobin A1c Lactic Acid Calcium Phosphorus Magnesium Ferritin Total Bilirubin AST ALT Lactate Dehydrogenase C-Reactive Protein Albumin Triglycerides Arterial Blood Glucose Arterial Blood Ionized Calcium Urine Creatinine Coronavirus (PCR) Crossmatch 02/01/21 02/01/21 02/01/21 11:12 12:35 16:00 WBC RBC Hgb Hct MCV MCH MCHC RDW Plt Count Lymph % (Auto) Lymph # (Auto) Seg Neutrophils % Seg Neuts % (Manual) Lymphocytes % (Manual) Monocytes % (Manual) Nucleated RBC % Seg Neutrophils # Seg Neutrophils # Man Lymphocytes # (Manual) Monocytes # (Manual) Eosinophils # (Manual) INR D-Dimer ABG pH 7.155 L* POC ABG pCO2 POC ABG pO2 ABG pO2 94.6 H ABG HCO3 ABG O2 Saturation ABG Base Excess -6.5 L ABG Hemoglobin 13.1 L ABG Oxyhemoglobin ABG Sodium ABG Potassium ABG Chloride ABG Glucose Oxyhemoglobin 93.7 L Carboxyhemoglobin Sodium 155 H Potassium 5.1 H Chloride 120.5 H Carbon Dioxide BUN 90 H Creatinine 6.1 H D Glucose 238 H POC Glucose 207 H Hemoglobin A1c Lactic Acid Calcium 7.4 L Phosphorus Magnesium Ferritin Total Bilirubin AST ALT Lactate Dehydrogenase C-Reactive Protein Albumin Triglycerides Arterial Blood Glucose Arterial Blood Ionized Calcium Urine Creatinine Coronavirus (PCR) Crossmatch 02/01/21 02/01/21 02/02/21 17:10 23:47 04:04 WBC RBC 3.02 L Hgb 9.8 L Hct 30.7 L MCV 102 H MCH MCHC RDW 15.6 H Plt Count Lymph % (Auto) 4.2 L Lymph # (Auto) 0.3 L Seg Neutrophils % Seg Neuts % (Manual) Lymphocytes % (Manual) Monocytes % (Manual) Nucleated RBC % Seg Neutrophils # Seg Neutrophils # Man Lymphocytes # (Manual) Monocytes # (Manual) Eosinophils # (Manual) INR D-Dimer ABG pH POC ABG pCO2 POC ABG pO2 ABG pO2 ABG HCO3 ABG O2 Saturation ABG Base Excess ABG Hemoglobin ABG Oxyhemoglobin ABG Sodium ABG Potassium ABG Chloride ABG Glucose Oxyhemoglobin Carboxyhemoglobin Sodium Potassium Chloride Carbon Dioxide BUN Creatinine Glucose POC Glucose 238 H 235 H Hemoglobin A1c Lactic Acid Calcium Phosphorus Magnesium Ferritin Total Bilirubin AST ALT Lactate Dehydrogenase C-Reactive Protein Albumin Triglycerides Arterial Blood Glucose Arterial Blood Ionized Calcium Urine Creatinine Coronavirus (PCR) Crossmatch 02/02/21 02/02/21 02/02/21 05:18 05:35 11:28 WBC RBC Hgb Hct MCV MCH MCHC RDW Plt Count Lymph % (Auto) Lymph # (Auto) Seg Neutrophils % Seg Neuts % (Manual) Lymphocytes % (Manual) Monocytes % (Manual) Nucleated RBC % Seg Neutrophils # Seg Neutrophils # Man Lymphocytes # (Manual) Monocytes # (Manual) Eosinophils # (Manual) INR D-Dimer ABG pH 7.195 L* POC ABG pCO2 POC ABG pO2 ABG pO2 72.5 L ABG HCO3 ABG O2 Saturation 91.2 L ABG Base Excess -5.3 L ABG Hemoglobin 6.0 L ABG Oxyhemoglobin ABG Sodium ABG Potassium ABG Chloride ABG Glucose Oxyhemoglobin 89.1 L Carboxyhemoglobin Sodium Potassium Chloride 110.4 H Carbon Dioxide BUN 92 H Creatinine Glucose POC Glucose 239 H Hemoglobin A1c Lactic Acid Calcium Phosphorus Magnesium Ferritin Total Bilirubin AST ALT Lactate Dehydrogenase C-Reactive Protein Albumin Triglycerides Arterial Blood Glucose Arterial Blood Ionized Calcium Urine Creatinine Coronavirus (PCR) Crossmatch 02/02/21 02/02/21 02/02/21 11:53 16:00 18:04 WBC RBC Hgb Hct MCV MCH MCHC RDW Plt Count Lymph % (Auto) Lymph # (Auto) Seg Neutrophils % Seg Neuts % (Manual) Lymphocytes % (Manual) Monocytes % (Manual) Nucleated RBC % Seg Neutrophils # Seg Neutrophils # Man Lymphocytes # (Manual) Monocytes # (Manual) Eosinophils # (Manual) INR D-Dimer ABG pH POC ABG pCO2 POC ABG pO2 ABG pO2 ABG HCO3 ABG O2 Saturation ABG Base Excess ABG Hemoglobin ABG Oxyhemoglobin ABG Sodium ABG Potassium ABG Chloride ABG Glucose Oxyhemoglobin Carboxyhemoglobin Sodium Potassium Chloride Carbon Dioxide BUN Creatinine Glucose POC Glucose 248 H 199 H Hemoglobin A1c 6.3 H Lactic Acid Calcium Phosphorus Magnesium Ferritin Total Bilirubin AST ALT Lactate Dehydrogenase C-Reactive Protein Albumin Triglycerides Arterial Blood Glucose Arterial Blood Ionized Calcium Urine Creatinine Coronavirus (PCR) Crossmatch 02/02/21 02/03/21 02/03/21 23:31 03:12 04:10 WBC RBC 3.06 L Hgb 9.7 L Hct 30.4 L MCV 99 H MCH MCHC RDW 15.3 H Plt Count Lymph % (Auto) 6.1 L Lymph # (Auto) 0.5 L Seg Neutrophils % 86.1 H Seg Neuts % (Manual) Lymphocytes % (Manual) Monocytes % (Manual) Nucleated RBC % Seg Neutrophils # Seg Neutrophils # Man Lymphocytes # (Manual) Monocytes # (Manual) Eosinophils # (Manual) INR D-Dimer ABG pH 7.199 L POC ABG pCO2 48.3 H POC ABG pO2 68.3 L ABG pO2 ABG HCO3 ABG O2 Saturation ABG Base Excess ABG Hemoglobin 10.2 L ABG Oxyhemoglobin 89.2 L ABG Sodium 155.0 H ABG Potassium 4.6 H ABG Chloride 121.0 H ABG Glucose 166 H Oxyhemoglobin Carboxyhemoglobin 0.3 L Sodium Potassium Chloride Carbon Dioxide BUN Creatinine Glucose POC Glucose 200 H Hemoglobin A1c Lactic Acid Calcium Phosphorus Magnesium Ferritin Total Bilirubin AST ALT Lactate Dehydrogenase C-Reactive Protein Albumin Triglycerides Arterial Blood Glucose 166 H Arterial Blood Ionized Calcium 4.1 L Urine Creatinine Coronavirus (PCR) Crossmatch 02/03/21 02/03/21 02/03/21 04:10 05:34 11:51 WBC RBC Hgb Hct MCV MCH MCHC RDW Plt Count Lymph % (Auto) Lymph # (Auto) Seg Neutrophils % Seg Neuts % (Manual) Lymphocytes % (Manual) Monocytes % (Manual) Nucleated RBC % Seg Neutrophils # Seg Neutrophils # Man Lymphocytes # (Manual) Monocytes # (Manual) Eosinophils # (Manual) INR D-Dimer ABG pH POC ABG pCO2 POC ABG pO2 ABG pO2 ABG HCO3 ABG O2 Saturation ABG Base Excess ABG Hemoglobin ABG Oxyhemoglobin ABG Sodium ABG Potassium ABG Chloride ABG Glucose Oxyhemoglobin Carboxyhemoglobin Sodium 154 H D Potassium Chloride 116.7 H Carbon Dioxide 20 L BUN 130 H Creatinine 9.2 H D Glucose 160 H POC Glucose 130 H 154 H Hemoglobin A1c Lactic Acid Calcium 6.7 L Phosphorus 8.60 H Magnesium Ferritin Total Bilirubin AST ALT Lactate Dehydrogenase C-Reactive Protein Albumin Triglycerides Arterial Blood Glucose Arterial Blood Ionized Calcium Urine Creatinine Coronavirus (PCR) Crossmatch 02/03/21 02/03/21 02/04/21 16:49 23:22 03:48 WBC RBC Hgb Hct MCV MCH MCHC RDW Plt Count Lymph % (Auto) Lymph # (Auto) Seg Neutrophils % Seg Neuts % (Manual) Lymphocytes % (Manual) Monocytes % (Manual) Nucleated RBC % Seg Neutrophils # Seg Neutrophils # Man Lymphocytes # (Manual) Monocytes # (Manual) Eosinophils # (Manual) INR D-Dimer ABG pH 7.201 L POC ABG pCO2 54.5 H POC ABG pO2 74.0 L ABG pO2 ABG HCO3 ABG O2 Saturation ABG Base Excess ABG Hemoglobin 9.7 L ABG Oxyhemoglobin 91.1 L ABG Sodium 146.2 H ABG Potassium ABG Chloride 114.0 H ABG Glucose 155 H Oxyhemoglobin Carboxyhemoglobin Sodium Potassium Chloride Carbon Dioxide BUN Creatinine Glucose POC Glucose 164 H 152 H Hemoglobin A1c Lactic Acid Calcium Phosphorus Magnesium Ferritin Total Bilirubin AST ALT Lactate Dehydrogenase C-Reactive Protein Albumin Triglycerides Arterial Blood Glucose 155 H Arterial Blood Ionized Calcium 3.9 L Urine Creatinine Coronavirus (PCR) Crossmatch 02/04/21 02/04/21 02/04/21 04:45 04:45 04:45 WBC RBC 2.75 L Hgb 9.1 L Hct 26.9 L MCV 98 H MCH 33 H MCHC RDW Plt Count Lymph % (Auto) 6.8 L Lymph # (Auto) 0.5 L Seg Neutrophils % 87.2 H Seg Neuts % (Manual) Lymphocytes % (Manual) Monocytes % (Manual) Nucleated RBC % Seg Neutrophils # Seg Neutrophils # Man Lymphocytes # (Manual) Monocytes # (Manual) Eosinophils # (Manual) INR D-Dimer ABG pH POC ABG pCO2 POC ABG pO2 ABG pO2 ABG HCO3 ABG O2 Saturation ABG Base Excess ABG Hemoglobin ABG Oxyhemoglobin ABG Sodium ABG Potassium ABG Chloride ABG Glucose Oxyhemoglobin Carboxyhemoglobin Sodium 149 H Potassium Chloride 111.5 H Carbon Dioxide BUN 99 H Creatinine 8.5 H Glucose 139 H POC Glucose Hemoglobin A1c Lactic Acid Calcium 6.8 L Phosphorus 8.40 H Magnesium Ferritin Total Bilirubin AST ALT Lactate Dehydrogenase C-Reactive Protein Albumin Triglycerides Arterial Blood Glucose Arterial Blood Ionized Calcium Urine Creatinine Coronavirus (PCR) Crossmatch 02/04/21 02/04/21 02/04/21 06:05 11:44 18:00 WBC RBC Hgb Hct MCV MCH MCHC RDW Plt Count Lymph % (Auto) Lymph # (Auto) Seg Neutrophils % Seg Neuts % (Manual) Lymphocytes % (Manual) Monocytes % (Manual) Nucleated RBC % Seg Neutrophils # Seg Neutrophils # Man Lymphocytes # (Manual) Monocytes # (Manual) Eosinophils # (Manual) INR D-Dimer ABG pH POC ABG pCO2 POC ABG pO2 ABG pO2 ABG HCO3 ABG O2 Saturation ABG Base Excess ABG Hemoglobin ABG Oxyhemoglobin ABG Sodium ABG Potassium ABG Chloride ABG Glucose Oxyhemoglobin Carboxyhemoglobin Sodium Potassium Chloride Carbon Dioxide BUN Creatinine Glucose POC Glucose 138 H 129 H 163 H Hemoglobin A1c Lactic Acid Calcium Phosphorus Magnesium Ferritin Total Bilirubin AST ALT Lactate Dehydrogenase C-Reactive Protein Albumin Triglycerides Arterial Blood Glucose Arterial Blood Ionized Calcium Urine Creatinine Coronavirus (PCR) Crossmatch 02/04/21 02/05/21 02/05/21 23:48 01:50 01:50 WBC RBC 2.43 L Hgb 8.3 L Hct 23.6 L MCV 97 H MCH 34 H MCHC 35 H RDW Plt Count 137 L Lymph % (Auto) 8.4 L Lymph # (Auto) 0.6 L Seg Neutrophils % 86.1 H Seg Neuts % (Manual) Lymphocytes % (Manual) Monocytes % (Manual) Nucleated RBC % Seg Neutrophils # Seg Neutrophils # Man Lymphocytes # (Manual) Monocytes # (Manual) Eosinophils # (Manual) INR D-Dimer ABG pH POC ABG pCO2 POC ABG pO2 ABG pO2 ABG HCO3 ABG O2 Saturation ABG Base Excess ABG Hemoglobin ABG Oxyhemoglobin ABG Sodium ABG Potassium ABG Chloride ABG Glucose Oxyhemoglobin Carboxyhemoglobin Sodium Potassium Chloride Carbon Dioxide BUN Creatinine Glucose POC Glucose 157 H Hemoglobin A1c Lactic Acid Calcium Phosphorus 5.60 H D Magnesium Ferritin Total Bilirubin AST ALT Lactate Dehydrogenase C-Reactive Protein Albumin Triglycerides Arterial Blood Glucose Arterial Blood Ionized Calcium Urine Creatinine Coronavirus (PCR) Crossmatch 02/05/21 02/05/21 02/05/21 03:44 05:27 09:15 WBC RBC Hgb Hct MCV MCH MCHC RDW Plt Count Lymph % (Auto) Lymph # (Auto) Seg Neutrophils % Seg Neuts % (Manual) Lymphocytes % (Manual) Monocytes % (Manual) Nucleated RBC % Seg Neutrophils # Seg Neutrophils # Man Lymphocytes # (Manual) Monocytes # (Manual) Eosinophils # (Manual) INR D-Dimer ABG pH 7.202 L POC ABG pCO2 63.7 H POC ABG pO2 69.0 L ABG pO2 ABG HCO3 ABG O2 Saturation ABG Base Excess ABG Hemoglobin 9.4 L ABG Oxyhemoglobin ABG Sodium ABG Potassium ABG Chloride 108.0 H ABG Glucose 186 H Oxyhemoglobin Carboxyhemoglobin Sodium Potassium Chloride Carbon Dioxide BUN 78 H Creatinine 8.0 H Glucose 163 H POC Glucose 157 H Hemoglobin A1c Lactic Acid Calcium 6.3 L Phosphorus Magnesium Ferritin Total Bilirubin AST ALT Lactate Dehydrogenase C-Reactive Protein Albumin Triglycerides Arterial Blood Glucose 186 H Arterial Blood Ionized Calcium 3.9 L Urine Creatinine Coronavirus (PCR) Crossmatch 02/05/21 02/05/21 02/05/21 11:47 17:39 23:40 WBC RBC Hgb Hct MCV MCH MCHC RDW Plt Count Lymph % (Auto) Lymph # (Auto) Seg Neutrophils % Seg Neuts % (Manual) Lymphocytes % (Manual) Monocytes % (Manual) Nucleated RBC % Seg Neutrophils # Seg Neutrophils # Man Lymphocytes # (Manual) Monocytes # (Manual) Eosinophils # (Manual) INR D-Dimer ABG pH 7.273 L POC ABG pCO2 62.1 H POC ABG pO2 72.0 L ABG pO2 ABG HCO3 ABG O2 Saturation ABG Base Excess ABG Hemoglobin 9.1 L ABG Oxyhemoglobin 91.3 L ABG Sodium ABG Potassium 3.1 L ABG Chloride ABG Glucose 125 H Oxyhemoglobin Carboxyhemoglobin Sodium Potassium Chloride Carbon Dioxide BUN Creatinine Glucose POC Glucose 126 H 126 H Hemoglobin A1c Lactic Acid Calcium Phosphorus Magnesium Ferritin Total Bilirubin AST ALT Lactate Dehydrogenase C-Reactive Protein Albumin Triglycerides Arterial Blood Glucose 125 H Arterial Blood Ionized Calcium 4.0 L Urine Creatinine Coronavirus (PCR) Crossmatch 02/06/21 02/06/21 02/06/21 04:30 04:57 09:45 WBC RBC Hgb Hct MCV MCH MCHC RDW Plt Count Lymph % (Auto) Lymph # (Auto) Seg Neutrophils % Seg Neuts % (Manual) Lymphocytes % (Manual) Monocytes % (Manual) Nucleated RBC % Seg Neutrophils # Seg Neutrophils # Man Lymphocytes # (Manual) Monocytes # (Manual) Eosinophils # (Manual) INR D-Dimer ABG pH 7.159 L 7.138 L* POC ABG pCO2 76.3 H POC ABG pO2 66.9 L ABG pO2 ABG HCO3 ABG O2 Saturation 93.4 L ABG Base Excess -6.0 L ABG Hemoglobin 11.2 L 11.7 L ABG Oxyhemoglobin 88.2 L ABG Sodium ABG Potassium ABG Chloride ABG Glucose 134 H Oxyhemoglobin 91.2 L Carboxyhemoglobin Sodium Potassium Chloride Carbon Dioxide BUN Creatinine Glucose POC Glucose 124 H Hemoglobin A1c Lactic Acid Calcium Phosphorus Magnesium Ferritin Total Bilirubin AST ALT Lactate Dehydrogenase C-Reactive Protein Albumin Triglycerides Arterial Blood Glucose 134 H Arterial Blood Ionized Calcium 3.9 L Urine Creatinine Coronavirus (PCR) Crossmatch 02/06/21 02/06/21 02/06/21 11:11 17:00 17:00 WBC RBC Hgb Hct MCV MCH MCHC RDW Plt Count Lymph % (Auto) Lymph # (Auto) Seg Neutrophils % Seg Neuts % (Manual) Lymphocytes % (Manual) Monocytes % (Manual) Nucleated RBC % Seg Neutrophils # Seg Neutrophils # Man Lymphocytes # (Manual) Monocytes # (Manual) Eosinophils # (Manual) INR D-Dimer ABG pH 7.158 L* POC ABG pCO2 POC ABG pO2 ABG pO2 109.8 H ABG HCO3 28.7 H ABG O2 Saturation ABG Base Excess -2.5 L ABG Hemoglobin ABG Oxyhemoglobin ABG Sodium ABG Potassium ABG Chloride ABG Glucose Oxyhemoglobin 94.5 L Carboxyhemoglobin Sodium Potassium Chloride Carbon Dioxide BUN Creatinine Glucose POC Glucose 120 H Hemoglobin A1c Lactic Acid Calcium Phosphorus Magnesium Ferritin Total Bilirubin AST ALT Lactate Dehydrogenase C-Reactive Protein Albumin Triglycerides 503 H Arterial Blood Glucose Arterial Blood Ionized Calcium Urine Creatinine Coronavirus (PCR) Crossmatch 02/06/21 02/06/21 02/06/21 17:28 20:16 Unknown WBC 13.5 H RBC 2.98 L Hgb 9.3 L Hct 28.6 L MCV 96 H MCH MCHC RDW Plt Count Lymph % (Auto) Lymph # (Auto) Seg Neutrophils % Seg Neuts % (Manual) 87.0 H Lymphocytes % (Manual) 7.0 L Monocytes % (Manual) Nucleated RBC % Seg Neutrophils # Seg Neutrophils # Man 11.7 H Lymphocytes # (Manual) 0.9 L Monocytes # (Manual) Eosinophils # (Manual) 0.5 H INR D-Dimer ABG pH POC ABG pCO2 POC ABG pO2 ABG pO2 ABG HCO3 ABG O2 Saturation ABG Base Excess ABG Hemoglobin ABG Oxyhemoglobin ABG Sodium ABG Potassium ABG Chloride ABG Glucose Oxyhemoglobin Carboxyhemoglobin Sodium Potassium Chloride Carbon Dioxide BUN Creatinine Glucose POC Glucose 147 H 164 H Hemoglobin A1c Lactic Acid Calcium Phosphorus Magnesium Ferritin Total Bilirubin AST ALT Lactate Dehydrogenase C-Reactive Protein Albumin Triglycerides Arterial Blood Glucose Arterial Blood Ionized Calcium Urine Creatinine Coronavirus (PCR) Crossmatch 02/06/21 02/07/21 02/07/21 Unknown : 04:00 WBC 12.0 H RBC 2.61 L Hgb 8.2 L Hct 24.5 L MCV MCH MCHC RDW Plt Count Lymph % (Auto) 8.9 L Lymph # (Auto) 1.1 L Seg Neutrophils % 86.3 H Seg Neuts % (Manual) Lymphocytes % (Manual) Monocytes % (Manual) Nucleated RBC % Seg Neutrophils # 10.3 H Seg Neutrophils # Man Lymphocytes # (Manual) Monocytes # (Manual) Eosinophils # (Manual) INR D-Dimer ABG pH POC ABG pCO2 POC ABG pO2 ABG pO2 ABG HCO3 ABG O2 Saturation ABG Base Excess ABG Hemoglobin ABG Oxyhemoglobin ABG Sodium ABG Potassium ABG Chloride ABG Glucose Oxyhemoglobin Carboxyhemoglobin Sodium Potassium 3.5 L Chloride Carbon Dioxide BUN 58 H Creatinine 6.6 H Glucose 107 H POC Glucose 173 H Hemoglobin A1c Lactic Acid Calcium 6.7 L Phosphorus 8.00 H D Magnesium Ferritin Total Bilirubin AST ALT Lactate Dehydrogenase C-Reactive Protein Albumin Triglycerides Arterial Blood Glucose Arterial Blood Ionized Calcium Urine Creatinine Coronavirus (PCR) Crossmatch 02/07/21 02/07/21 02/07/21 04:00 04:45 11:49 WBC RBC Hgb Hct MCV MCH MCHC RDW Plt Count Lymph % (Auto) Lymph # (Auto) Seg Neutrophils % Seg Neuts % (Manual) Lymphocytes % (Manual) Monocytes % (Manual) Nucleated RBC % Seg Neutrophils # Seg Neutrophils # Man Lymphocytes # (Manual) Monocytes # (Manual) Eosinophils # (Manual) INR D-Dimer ABG pH 7.287 L POC ABG pCO2 64.8 H POC ABG pO2 74.0 L ABG pO2 ABG HCO3 ABG O2 Saturation ABG Base Excess ABG Hemoglobin 9.1 L ABG Oxyhemoglobin 92.0 L ABG Sodium ABG Potassium 2.8 L ABG Chloride ABG Glucose 226 H Oxyhemoglobin Carboxyhemoglobin Sodium Potassium Chloride Carbon Dioxide BUN Creatinine Glucose POC Glucose 170 H Hemoglobin A1c Lactic Acid Calcium Phosphorus 5.50 H D Magnesium Ferritin Total Bilirubin AST ALT Lactate Dehydrogenase C-Reactive Protein Albumin Triglycerides Arterial Blood Glucose 226 H Arterial Blood Ionized Calcium 3.7 L Urine Creatinine Coronavirus (PCR) Crossmatch 02/07/21 02/07/21 02/07/21 13:48 17:45 23:02 WBC RBC Hgb Hct MCV MCH MCHC RDW Plt Count Lymph % (Auto) Lymph # (Auto) Seg Neutrophils % Seg Neuts % (Manual) Lymphocytes % (Manual) Monocytes % (Manual) Nucleated RBC % Seg Neutrophils # Seg Neutrophils # Man Lymphocytes # (Manual) Monocytes # (Manual) Eosinophils # (Manual) INR D-Dimer ABG pH POC ABG pCO2 POC ABG pO2 ABG pO2 ABG HCO3 ABG O2 Saturation ABG Base Excess ABG Hemoglobin ABG Oxyhemoglobin ABG Sodium ABG Potassium ABG Chloride ABG Glucose Oxyhemoglobin Carboxyhemoglobin Sodium 136 L Potassium 2.6 L* D Chloride 95.1 L Carbon Dioxide 33 H D BUN 30 H Creatinine 3.6 H Glucose 184 H POC Glucose 172 H 172 H Hemoglobin A1c Lactic Acid Calcium 6.9 L Phosphorus Magnesium Ferritin Total Bilirubin AST ALT Lactate Dehydrogenase C-Reactive Protein Albumin Triglycerides Arterial Blood Glucose Arterial Blood Ionized Calcium Urine Creatinine Coronavirus (PCR) Crossmatch 02/08/21 02/08/21 02/08/21 05:22 06:00 06:00 WBC RBC 2.21 L Hgb 7.2 L Hct 21.0 L MCV 95 H MCH MCHC RDW Plt Count Lymph % (Auto) Lymph # (Auto) Seg Neutrophils % Seg Neuts % (Manual) 87.0 H Lymphocytes % (Manual) 4.0 L Monocytes % (Manual) Nucleated RBC % Seg Neutrophils # Seg Neutrophils # Man 8.5 H Lymphocytes # (Manual) 0.4 L Monocytes # (Manual) Eosinophils # (Manual) INR D-Dimer ABG pH POC ABG pCO2 POC ABG pO2 ABG pO2 ABG HCO3 ABG O2 Saturation ABG Base Excess ABG Hemoglobin ABG Oxyhemoglobin ABG Sodium ABG Potassium ABG Chloride ABG Glucose Oxyhemoglobin Carboxyhemoglobin Sodium 136 L Potassium 2.4 L* Chloride 93.1 L Carbon Dioxide 36 H BUN 43 H Creatinine 5.4 H Glucose 167 H POC Glucose 162 H Hemoglobin A1c Lactic Acid Calcium 6.3 L Phosphorus Magnesium Ferritin Total Bilirubin AST ALT Lactate Dehydrogenase C-Reactive Protein Albumin Triglycerides Arterial Blood Glucose Arterial Blood Ionized Calcium Urine Creatinine Coronavirus (PCR) Crossmatch 02/08/21 02/08/21 02/08/21 11:44 17:53 18:56 WBC RBC Hgb Hct MCV MCH MCHC RDW Plt Count Lymph % (Auto) Lymph # (Auto) Seg Neutrophils % Seg Neuts % (Manual) Lymphocytes % (Manual) Monocytes % (Manual) Nucleated RBC % Seg Neutrophils # Seg Neutrophils # Man Lymphocytes # (Manual) Monocytes # (Manual) Eosinophils # (Manual) INR D-Dimer ABG pH POC ABG pCO2 POC ABG pO2 ABG pO2 ABG HCO3 ABG O2 Saturation ABG Base Excess ABG Hemoglobin ABG Oxyhemoglobin ABG Sodium ABG Potassium ABG Chloride ABG Glucose Oxyhemoglobin Carboxyhemoglobin Sodium Potassium 2.9 L* D Chloride Carbon Dioxide BUN Creatinine Glucose POC Glucose 164 H 154 H Hemoglobin A1c Lactic Acid Calcium Phosphorus Magnesium Ferritin Total Bilirubin AST ALT Lactate Dehydrogenase C-Reactive Protein Albumin Triglycerides Arterial Blood Glucose Arterial Blood Ionized Calcium Urine Creatinine Coronavirus (PCR) Crossmatch 02/08/21 02/08/21 02/09/21 23:24 23:58 03:21 WBC RBC Hgb Hct MCV MCH MCHC RDW Plt Count Lymph % (Auto) Lymph # (Auto) Seg Neutrophils % Seg Neuts % (Manual) Lymphocytes % (Manual) Monocytes % (Manual) Nucleated RBC % Seg Neutrophils # Seg Neutrophils # Man Lymphocytes # (Manual) Monocytes # (Manual) Eosinophils # (Manual) INR D-Dimer ABG pH 7.319 L POC ABG pCO2 63.3 H 68.3 H POC ABG pO2 71.2 L 76.5 L ABG pO2 ABG HCO3 ABG O2 Saturation ABG Base Excess ABG Hemoglobin 8.2 L 7.0 L ABG Oxyhemoglobin 91.8 L 92.2 L ABG Sodium 134.6 L 133.0 L ABG Potassium 2.3 L 3.1 L ABG Chloride 96.0 L 95.0 L ABG Glucose 184 H 154 H Oxyhemoglobin Carboxyhemoglobin Sodium Potassium Chloride Carbon Dioxide BUN Creatinine Glucose POC Glucose 152 H Hemoglobin A1c Lactic Acid Calcium Phosphorus Magnesium Ferritin Total Bilirubin AST ALT Lactate Dehydrogenase C-Reactive Protein Albumin Triglycerides Arterial Blood Glucose 184 H 154 H Arterial Blood Ionized Calcium 3.6 L 3.5 L Urine Creatinine Coronavirus (PCR) Crossmatch 02/09/21 02/09/21 02/09/21 05:10 05:10 06:04 WBC RBC 2.14 L Hgb 7.0 L Hct 20.5 L MCV 96 H MCH 33 H MCHC RDW Plt Count Lymph % (Auto) Lymph # (Auto) Seg Neutrophils % Seg Neuts % (Manual) 82.0 H Lymphocytes % (Manual) 9.0 L Monocytes % (Manual) Nucleated RBC % 1.0 H Seg Neutrophils # Seg Neutrophils # Man 8.9 H Lymphocytes # (Manual) 1.0 L Monocytes # (Manual) Eosinophils # (Manual) INR D-Dimer ABG pH POC ABG pCO2 POC ABG pO2 ABG pO2 ABG HCO3 ABG O2 Saturation ABG Base Excess ABG Hemoglobin ABG Oxyhemoglobin ABG Sodium ABG Potassium ABG Chloride ABG Glucose Oxyhemoglobin Carboxyhemoglobin Sodium 135 L Potassium 3.2 L Chloride 91.0 L Carbon Dioxide 32 H BUN 54 H Creatinine 6.6 H Glucose 163 H POC Glucose 149 H Hemoglobin A1c Lactic Acid Calcium 6.2 L Phosphorus Magnesium Ferritin Total Bilirubin AST ALT Lactate Dehydrogenase C-Reactive Protein Albumin Triglycerides Arterial Blood Glucose Arterial Blood Ionized Calcium Urine Creatinine Coronavirus (PCR) Crossmatch 02/09/21 02/09/21 02/09/21 12:02 13:32 13:40 WBC RBC Hgb Hct MCV MCH MCHC RDW Plt Count Lymph % (Auto) Lymph # (Auto) Seg Neutrophils % Seg Neuts % (Manual) Lymphocytes % (Manual) Monocytes % (Manual) Nucleated RBC % Seg Neutrophils # Seg Neutrophils # Man Lymphocytes # (Manual) Monocytes # (Manual) Eosinophils # (Manual) INR D-Dimer ABG pH POC ABG pCO2 POC ABG pO2 ABG pO2 ABG HCO3 ABG O2 Saturation ABG Base Excess ABG Hemoglobin ABG Oxyhemoglobin ABG Sodium ABG Potassium ABG Chloride ABG Glucose Oxyhemoglobin Carboxyhemoglobin Sodium Potassium Chloride Carbon Dioxide BUN Creatinine Glucose POC Glucose 147 H Hemoglobin A1c Lactic Acid Calcium Phosphorus Magnesium Ferritin Total Bilirubin AST ALT Lactate Dehydrogenase C-Reactive Protein Albumin Triglycerides 250 H Arterial Blood Glucose Arterial Blood Ionized Calcium Urine Creatinine Coronavirus (PCR) Crossmatch See Detail 02/09/21 02/09/21 02/10/21 18:06 23:42 04:00 WBC RBC Hgb Hct MCV MCH MCHC RDW Plt Count Lymph % (Auto) Lymph # (Auto) Seg Neutrophils % Seg Neuts % (Manual) Lymphocytes % (Manual) Monocytes % (Manual) Nucleated RBC % Seg Neutrophils # Seg Neutrophils # Man Lymphocytes # (Manual) Monocytes # (Manual) Eosinophils # (Manual) INR D-Dimer ABG pH POC ABG pCO2 65.8 H POC ABG pO2 68.0 L ABG pO2 ABG HCO3 ABG O2 Saturation ABG Base Excess ABG Hemoglobin 8.3 L ABG Oxyhemoglobin ABG Sodium 132.4 L ABG Potassium 2.9 L ABG Chloride 92.0 L ABG Glucose 174 H Oxyhemoglobin Carboxyhemoglobin Sodium Potassium Chloride Carbon Dioxide BUN Creatinine Glucose POC Glucose 152 H 147 H Hemoglobin A1c Lactic Acid Calcium Phosphorus Magnesium Ferritin Total Bilirubin AST ALT Lactate Dehydrogenase C-Reactive Protein Albumin Triglycerides Arterial Blood Glucose 174 H Arterial Blood Ionized Calcium 3.4 L Urine Creatinine Coronavirus (PCR) Crossmatch 02/10/21 02/10/21 02/10/21 05:32 11:29 14:08 WBC 12.5 H RBC 2.14 L Hgb 6.6 L Hct 20.2 L MCV MCH MCHC RDW Plt Count Lymph % (Auto) Lymph # (Auto) Seg Neutrophils % Seg Neuts % (Manual) Lymphocytes % (Manual) Monocytes % (Manual) Nucleated RBC % Seg Neutrophils # Seg Neutrophils # Man Lymphocytes # (Manual) Monocytes # (Manual) Eosinophils # (Manual) INR D-Dimer ABG pH POC ABG pCO2 POC ABG pO2 ABG pO2 ABG HCO3 ABG O2 Saturation ABG Base Excess ABG Hemoglobin ABG Oxyhemoglobin ABG Sodium ABG Potassium ABG Chloride ABG Glucose Oxyhemoglobin Carboxyhemoglobin Sodium Potassium Chloride Carbon Dioxide BUN Creatinine Glucose POC Glucose 167 H 147 H Hemoglobin A1c Lactic Acid Calcium Phosphorus Magnesium Ferritin Total Bilirubin AST ALT Lactate Dehydrogenase C-Reactive Protein Albumin Triglycerides Arterial Blood Glucose Arterial Blood Ionized Calcium Urine Creatinine Coronavirus (PCR) Crossmatch 02/10/21 02/10/21 02/10/21 14:08 18:11 22:32 WBC RBC Hgb 6.4 L Hct 19.1 L* MCV MCH MCHC RDW Plt Count Lymph % (Auto) Lymph # (Auto) Seg Neutrophils % Seg Neuts % (Manual) Lymphocytes % (Manual) Monocytes % (Manual) Nucleated RBC % Seg Neutrophils # Seg Neutrophils # Man Lymphocytes # (Manual) Monocytes # (Manual) Eosinophils # (Manual) INR D-Dimer ABG pH POC ABG pCO2 POC ABG pO2 ABG pO2 ABG HCO3 ABG O2 Saturation ABG Base Excess ABG Hemoglobin ABG Oxyhemoglobin ABG Sodium ABG Potassium ABG Chloride ABG Glucose Oxyhemoglobin Carboxyhemoglobin Sodium 136 L Potassium 2.9 L* Chloride 90.2 L Carbon Dioxide 33 H BUN 42 H Creatinine 7.5 H Glucose 155 H POC Glucose 173 H Hemoglobin A1c Lactic Acid Calcium 6.1 L Phosphorus Magnesium Ferritin Total Bilirubin AST ALT Lactate Dehydrogenase C-Reactive Protein Albumin Triglycerides Arterial Blood Glucose Arterial Blood Ionized Calcium Urine Creatinine Coronavirus (PCR) Crossmatch 02/11/21 02/11/21 02/11/21 00:28 04:05 04:30 WBC RBC Hgb Hct MCV MCH MCHC RDW Plt Count Lymph % (Auto) Lymph # (Auto) Seg Neutrophils % Seg Neuts % (Manual) Lymphocytes % (Manual) Monocytes % (Manual) Nucleated RBC % Seg Neutrophils # Seg Neutrophils # Man Lymphocytes # (Manual) Monocytes # (Manual) Eosinophils # (Manual) INR D-Dimer ABG pH 7.307 L POC ABG pCO2 72.2 H POC ABG pO2 72.3 L ABG pO2 ABG HCO3 ABG O2 Saturation ABG Base Excess ABG Hemoglobin 8.2 L ABG Oxyhemoglobin ABG Sodium 132.3 L ABG Potassium 3.2 L ABG Chloride 91.0 L ABG Glucose 197 H Oxyhemoglobin Carboxyhemoglobin Sodium 135 L Potassium 3.3 L Chloride 87.1 L Carbon Dioxide 36 H BUN 71 H Creatinine 7.9 H Glucose 263 H POC Glucose 192 H Hemoglobin A1c Lactic Acid Calcium 6.2 L Phosphorus Magnesium Ferritin Total Bilirubin AST ALT Lactate Dehydrogenase C-Reactive Protein Albumin Triglycerides Arterial Blood Glucose 197 H Arterial Blood Ionized Calcium 3.3 L Urine Creatinine Coronavirus (PCR) Crossmatch 02/11/21 02/11/21 02/11/21 04:30 05:47 08:27 WBC RBC 2.22 L Hgb 7.2 L Hct 21.0 L MCV MCH MCHC RDW Plt Count Lymph % (Auto) 8.7 L Lymph # (Auto) 0.9 L Seg Neutrophils % 85.5 H Seg Neuts % (Manual) Lymphocytes % (Manual) Monocytes % (Manual) Nucleated RBC % Seg Neutrophils # 9.2 H Seg Neutrophils # Man Lymphocytes # (Manual) Monocytes # (Manual) Eosinophils # (Manual) INR 1.17 H D-Dimer 1930.92 H ABG pH POC ABG pCO2 POC ABG pO2 ABG pO2 ABG HCO3 ABG O2 Saturation ABG Base Excess ABG Hemoglobin ABG Oxyhemoglobin ABG Sodium ABG Potassium ABG Chloride ABG Glucose Oxyhemoglobin Carboxyhemoglobin Sodium Potassium Chloride Carbon Dioxide BUN Creatinine Glucose POC Glucose 189 H Hemoglobin A1c Lactic Acid Calcium Phosphorus Magnesium Ferritin Total Bilirubin AST ALT Lactate Dehydrogenase C-Reactive Protein Albumin Triglycerides Arterial Blood Glucose Arterial Blood Ionized Calcium Urine Creatinine Coronavirus (PCR) Crossmatch 02/11/21 02/11/21 02/11/21 09:00 09:00 13:18 WBC RBC Hgb Hct MCV MCH MCHC RDW Plt Count Lymph % (Auto) Lymph # (Auto) Seg Neutrophils % Seg Neuts % (Manual) Lymphocytes % (Manual) Monocytes % (Manual) Nucleated RBC % Seg Neutrophils # Seg Neutrophils # Man Lymphocytes # (Manual) Monocytes # (Manual) Eosinophils # (Manual) INR D-Dimer ABG pH POC ABG pCO2 POC ABG pO2 ABG pO2 ABG HCO3 ABG O2 Saturation ABG Base Excess ABG Hemoglobin ABG Oxyhemoglobin ABG Sodium ABG Potassium ABG Chloride ABG Glucose Oxyhemoglobin Carboxyhemoglobin Sodium Potassium Chloride Carbon Dioxide BUN Creatinine Glucose 126 H POC Glucose 160 H Hemoglobin A1c Lactic Acid Calcium Phosphorus Magnesium Ferritin 1253.0 H Total Bilirubin AST ALT Lactate Dehydrogenase 649 H C-Reactive Protein 12.60 H Albumin Triglycerides Arterial Blood Glucose Arterial Blood Ionized Calcium Urine Creatinine Coronavirus (PCR) Crossmatch 02/11/21 02/11/21 02/11/21 14:30 16:59 22:34 WBC RBC Hgb 7.1 L 6.7 L Hct 20.5 L 19.9 L* MCV MCH MCHC RDW Plt Count Lymph % (Auto) Lymph # (Auto) Seg Neutrophils % Seg Neuts % (Manual) Lymphocytes % (Manual) Monocytes % (Manual) Nucleated RBC % Seg Neutrophils # Seg Neutrophils # Man Lymphocytes # (Manual) Monocytes # (Manual) Eosinophils # (Manual) INR D-Dimer ABG pH POC ABG pCO2 POC ABG pO2 ABG pO2 ABG HCO3 ABG O2 Saturation ABG Base Excess ABG Hemoglobin ABG Oxyhemoglobin ABG Sodium ABG Potassium ABG Chloride ABG Glucose Oxyhemoglobin Carboxyhemoglobin Sodium Potassium Chloride Carbon Dioxide BUN Creatinine Glucose POC Glucose 151 H Hemoglobin A1c Lactic Acid Calcium Phosphorus Magnesium Ferritin Total Bilirubin AST ALT Lactate Dehydrogenase C-Reactive Protein Albumin Triglycerides Arterial Blood Glucose Arterial Blood Ionized Calcium Urine Creatinine Coronavirus (PCR) Crossmatch 02/11/21 02/12/21 02/12/21 23:42 04:41 05:19 WBC RBC Hgb Hct MCV MCH MCHC RDW Plt Count Lymph % (Auto) Lymph # (Auto) Seg Neutrophils % Seg Neuts % (Manual) Lymphocytes % (Manual) Monocytes % (Manual) Nucleated RBC % Seg Neutrophils # Seg Neutrophils # Man Lymphocytes # (Manual) Monocytes # (Manual) Eosinophils # (Manual) INR D-Dimer ABG pH POC ABG pCO2 POC ABG pO2 ABG pO2 69.0 L ABG HCO3 32.5 H ABG O2 Saturation ABG Base Excess 7.7 H ABG Hemoglobin 5.1 L ABG Oxyhemoglobin ABG Sodium ABG Potassium ABG Chloride ABG Glucose Oxyhemoglobin 94.7 L Carboxyhemoglobin Sodium Potassium Chloride Carbon Dioxide BUN Creatinine Glucose POC Glucose 165 H 153 H Hemoglobin A1c Lactic Acid Calcium Phosphorus Magnesium Ferritin Total Bilirubin AST ALT Lactate Dehydrogenase C-Reactive Protein Albumin Triglycerides Arterial Blood Glucose Arterial Blood Ionized Calcium Urine Creatinine Coronavirus (PCR) Crossmatch 02/12/21 02/12/21 02/12/21 06:35 06:35 08:40 WBC RBC 2.21 L Hgb 7.2 L Hct 20.7 L MCV MCH 33 H MCHC 35 H RDW Plt Count Lymph % (Auto) Lymph # (Auto) Seg Neutrophils % Seg Neuts % (Manual) Lymphocytes % (Manual) Monocytes % (Manual) Nucleated RBC % Seg Neutrophils # Seg Neutrophils # Man Lymphocytes # (Manual) Monocytes # (Manual) Eosinophils # (Manual) INR D-Dimer ABG pH POC ABG pCO2 POC ABG pO2 ABG pO2 ABG HCO3 ABG O2 Saturation ABG Base Excess ABG Hemoglobin ABG Oxyhemoglobin ABG Sodium ABG Potassium ABG Chloride ABG Glucose Oxyhemoglobin Carboxyhemoglobin Sodium 135 L Potassium 3.4 L Chloride 91.8 L Carbon Dioxide 36 H BUN 57 H Creatinine 6.8 H Glucose 163 H POC Glucose Hemoglobin A1c Lactic Acid Calcium 7.0 L Phosphorus Magnesium 1.60 L Ferritin Total Bilirubin AST ALT Lactate Dehydrogenase C-Reactive Protein Albumin Triglycerides Arterial Blood Glucose Arterial Blood Ionized Calcium Urine Creatinine Coronavirus (PCR) Crossmatch 02/12/21 02/12/21 02/12/21 10:45 12:04 17:19 WBC RBC Hgb Hct MCV MCH MCHC RDW Plt Count Lymph % (Auto) Lymph # (Auto) Seg Neutrophils % Seg Neuts % (Manual) Lymphocytes % (Manual) Monocytes % (Manual) Nucleated RBC % Seg Neutrophils # Seg Neutrophils # Man Lymphocytes # (Manual) Monocytes # (Manual) Eosinophils # (Manual) INR D-Dimer ABG pH POC ABG pCO2 POC ABG pO2 ABG pO2 ABG HCO3 ABG O2 Saturation ABG Base Excess ABG Hemoglobin ABG Oxyhemoglobin ABG Sodium ABG Potassium ABG Chloride ABG Glucose Oxyhemoglobin Carboxyhemoglobin Sodium Potassium Chloride Carbon Dioxide BUN Creatinine Glucose POC Glucose 165 H 165 H Hemoglobin A1c Lactic Acid Calcium Phosphorus Magnesium Ferritin Total Bilirubin AST ALT Lactate Dehydrogenase C-Reactive Protein Albumin Triglycerides 182 H Arterial Blood Glucose Arterial Blood Ionized Calcium Urine Creatinine Coronavirus (PCR) Crossmatch 02/12/21 02/13/21 02/13/21 23:18 05:00 05:36 WBC RBC Hgb Hct MCV MCH MCHC RDW Plt Count Lymph % (Auto) Lymph # (Auto) Seg Neutrophils % Seg Neuts % (Manual) Lymphocytes % (Manual) Monocytes % (Manual) Nucleated RBC % Seg Neutrophils # Seg Neutrophils # Man Lymphocytes # (Manual) Monocytes # (Manual) Eosinophils # (Manual) INR D-Dimer ABG pH POC ABG pCO2 60.8 H POC ABG pO2 76.4 L ABG pO2 ABG HCO3 ABG O2 Saturation ABG Base Excess ABG Hemoglobin 7.4 L ABG Oxyhemoglobin ABG Sodium 133.2 L ABG Potassium 3.3 L ABG Chloride 96.0 L ABG Glucose 168 H Oxyhemoglobin Carboxyhemoglobin Sodium Potassium Chloride Carbon Dioxide BUN Creatinine Glucose POC Glucose 163 H 151 H Hemoglobin A1c Lactic Acid Calcium Phosphorus Magnesium Ferritin Total Bilirubin AST ALT Lactate Dehydrogenase C-Reactive Protein Albumin Triglycerides Arterial Blood Glucose 168 H Arterial Blood Ionized Calcium 4.3 L Urine Creatinine Coronavirus (PCR) Crossmatch 02/13/21 02/13/21 02/13/21 06:40 06:40 06:40 WBC RBC 2.19 L Hgb 7.0 L Hct 20.8 L MCV 95 H MCH MCHC RDW Plt Count Lymph % (Auto) Lymph # (Auto) Seg Neutrophils % Seg Neuts % (Manual) Lymphocytes % (Manual) Monocytes % (Manual) Nucleated RBC % Seg Neutrophils # Seg Neutrophils # Man Lymphocytes # (Manual) Monocytes # (Manual) Eosinophils # (Manual) INR D-Dimer ABG pH POC ABG pCO2 POC ABG pO2 ABG pO2 ABG HCO3 ABG O2 Saturation ABG Base Excess ABG Hemoglobin ABG Oxyhemoglobin ABG Sodium ABG Potassium ABG Chloride ABG Glucose Oxyhemoglobin Carboxyhemoglobin Sodium 135 L Potassium 3.4 L Chloride 93.0 L Carbon Dioxide 32 H BUN 46 H Creatinine 5.8 H Glucose 148 H POC Glucose Hemoglobin A1c Lactic Acid Calcium 7.9 L Phosphorus Magnesium Ferritin Total Bilirubin AST ALT Lactate Dehydrogenase C-Reactive Protein 16.80 H Albumin Triglycerides Arterial Blood Glucose Arterial Blood Ionized Calcium Urine Creatinine Coronavirus (PCR) Crossmatch 02/13/21 02/13/21 02/13/21 06:40 07:38 07:38 WBC RBC Hgb Hct MCV MCH MCHC RDW Plt Count Lymph % (Auto) Lymph # (Auto) Seg Neutrophils % Seg Neuts % (Manual) Lymphocytes % (Manual) Monocytes % (Manual) Nucleated RBC % Seg Neutrophils # Seg Neutrophils # Man Lymphocytes # (Manual) Monocytes # (Manual) Eosinophils # (Manual) INR D-Dimer 1722.16 H ABG pH POC ABG pCO2 POC ABG pO2 ABG pO2 ABG HCO3 ABG O2 Saturation ABG Base Excess ABG Hemoglobin ABG Oxyhemoglobin ABG Sodium ABG Potassium ABG Chloride ABG Glucose Oxyhemoglobin Carboxyhemoglobin Sodium Potassium Chloride Carbon Dioxide BUN Creatinine Glucose POC Glucose Hemoglobin A1c Lactic Acid Calcium Phosphorus Magnesium 1.60 L Ferritin 976.5 H Total Bilirubin AST ALT Lactate Dehydrogenase C-Reactive Protein Albumin Triglycerides Arterial Blood Glucose Arterial Blood Ionized Calcium Urine Creatinine Coronavirus (PCR) Crossmatch 02/13/21 02/13/21 02/13/21 12:24 16:57 23:32 WBC RBC Hgb Hct MCV MCH MCHC RDW Plt Count Lymph % (Auto) Lymph # (Auto) Seg Neutrophils % Seg Neuts % (Manual) Lymphocytes % (Manual) Monocytes % (Manual) Nucleated RBC % Seg Neutrophils # Seg Neutrophils # Man Lymphocytes # (Manual) Monocytes # (Manual) Eosinophils # (Manual) INR D-Dimer ABG pH POC ABG pCO2 POC ABG pO2 ABG pO2 ABG HCO3 ABG O2 Saturation ABG Base Excess ABG Hemoglobin ABG Oxyhemoglobin ABG Sodium ABG Potassium ABG Chloride ABG Glucose Oxyhemoglobin Carboxyhemoglobin Sodium Potassium Chloride Carbon Dioxide BUN Creatinine Glucose POC Glucose 141 H 156 H 161 H Hemoglobin A1c Lactic Acid Calcium Phosphorus Magnesium Ferritin Total Bilirubin AST ALT Lactate Dehydrogenase C-Reactive Protein Albumin Triglycerides Arterial Blood Glucose Arterial Blood Ionized Calcium Urine Creatinine Coronavirus (PCR) Crossmatch 02/14/21 02/14/21 02/14/21 04:00 05:41 11:00 WBC RBC 2.14 L Hgb 6.9 L Hct 20.7 L MCV 97 H MCH 33 H MCHC RDW Plt Count Lymph % (Auto) Lymph # (Auto) Seg Neutrophils % Seg Neuts % (Manual) Lymphocytes % (Manual) Monocytes % (Manual) Nucleated RBC % Seg Neutrophils # Seg Neutrophils # Man Lymphocytes # (Manual) Monocytes # (Manual) Eosinophils # (Manual) INR D-Dimer ABG pH POC ABG pCO2 POC ABG pO2 ABG pO2 ABG HCO3 ABG O2 Saturation ABG Base Excess ABG Hemoglobin ABG Oxyhemoglobin ABG Sodium ABG Potassium ABG Chloride ABG Glucose Oxyhemoglobin Carboxyhemoglobin Sodium Potassium Chloride Carbon Dioxide BUN Creatinine Glucose POC Glucose 143 H Hemoglobin A1c Lactic Acid Calcium Phosphorus Magnesium Ferritin Total Bilirubin AST ALT Lactate Dehydrogenase C-Reactive Protein Albumin Triglycerides Arterial Blood Glucose Arterial Blood Ionized Calcium Urine Creatinine Coronavirus (PCR) Crossmatch See Detail 02/14/21 02/14/21 02/14/21 11:51 18:08 23:41 WBC RBC Hgb Hct MCV MCH MCHC RDW Plt Count Lymph % (Auto) Lymph # (Auto) Seg Neutrophils % Seg Neuts % (Manual) Lymphocytes % (Manual) Monocytes % (Manual) Nucleated RBC % Seg Neutrophils # Seg Neutrophils # Man Lymphocytes # (Manual) Monocytes # (Manual) Eosinophils # (Manual) INR D-Dimer ABG pH POC ABG pCO2 POC ABG pO2 ABG pO2 ABG HCO3 ABG O2 Saturation ABG Base Excess ABG Hemoglobin ABG Oxyhemoglobin ABG Sodium ABG Potassium ABG Chloride ABG Glucose Oxyhemoglobin Carboxyhemoglobin Sodium Potassium Chloride Carbon Dioxide BUN Creatinine Glucose POC Glucose 113 H 123 H 120 H Hemoglobin A1c Lactic Acid Calcium Phosphorus Magnesium Ferritin Total Bilirubin AST ALT Lactate Dehydrogenase C-Reactive Protein Albumin Triglycerides Arterial Blood Glucose Arterial Blood Ionized Calcium Urine Creatinine Coronavirus (PCR) Crossmatch 02/14/21 02/15/21 02/15/21 Unknown 05:00 05:00 WBC RBC Hgb Hct MCV MCH MCHC RDW Plt Count Lymph % (Auto) Lymph # (Auto) Seg Neutrophils % Seg Neuts % (Manual) Lymphocytes % (Manual) Monocytes % (Manual) Nucleated RBC % Seg Neutrophils # Seg Neutrophils # Man Lymphocytes # (Manual) Monocytes # (Manual) Eosinophils # (Manual) INR D-Dimer ABG pH POC ABG pCO2 53.4 H POC ABG pO2 61.8 L ABG pO2 ABG HCO3 ABG O2 Saturation ABG Base Excess ABG Hemoglobin 7.7 L ABG Oxyhemoglobin 88.8 L ABG Sodium ABG Potassium ABG Chloride ABG Glucose 143 H Oxyhemoglobin Carboxyhemoglobin 1.6 H Sodium Potassium Chloride 96.9 L Carbon Dioxide 33 H 31 H BUN 40 H 38 H Creatinine 5.2 H 4.8 H Glucose 152 H 132 H POC Glucose Hemoglobin A1c Lactic Acid Calcium 7.9 L Phosphorus Magnesium Ferritin Total Bilirubin AST ALT Lactate Dehydrogenase C-Reactive Protein Albumin Triglycerides Arterial Blood Glucose 143 H Arterial Blood Ionized Calcium Urine Creatinine Coronavirus (PCR) Crossmatch 02/15/21 02/15/21 02/15/21 05:00 05:27 12:05 WBC RBC 2.30 L Hgb 7.1 L Hct 22.1 L MCV 96 H MCH MCHC RDW 15.7 H Plt Count Lymph % (Auto) 11.0 L Lymph # (Auto) 1.1 L Seg Neutrophils % 83.0 H Seg Neuts % (Manual) Lymphocytes % (Manual) Monocytes % (Manual) Nucleated RBC % Seg Neutrophils # 8.6 H Seg Neutrophils # Man Lymphocytes # (Manual) Monocytes # (Manual) Eosinophils # (Manual) INR D-Dimer ABG pH POC ABG pCO2 POC ABG pO2 ABG pO2 ABG HCO3 ABG O2 Saturation ABG Base Excess ABG Hemoglobin ABG Oxyhemoglobin ABG Sodium ABG Potassium ABG Chloride ABG Glucose Oxyhemoglobin Carboxyhemoglobin Sodium Potassium Chloride Carbon Dioxide BUN Creatinine Glucose POC Glucose 133 H 123 H Hemoglobin A1c Lactic Acid Calcium Phosphorus Magnesium Ferritin Total Bilirubin AST ALT Lactate Dehydrogenase C-Reactive Protein Albumin Triglycerides Arterial Blood Glucose Arterial Blood Ionized Calcium Urine Creatinine Coronavirus (PCR) Crossmatch 02/15/21 02/15/21 02/16/21 17:08 23:52 03:44 WBC RBC Hgb Hct MCV MCH MCHC RDW Plt Count Lymph % (Auto) Lymph # (Auto) Seg Neutrophils % Seg Neuts % (Manual) Lymphocytes % (Manual) Monocytes % (Manual) Nucleated RBC % Seg Neutrophils # Seg Neutrophils # Man Lymphocytes # (Manual) Monocytes # (Manual) Eosinophils # (Manual) INR D-Dimer ABG pH 7.307 L POC ABG pCO2 59.5 H POC ABG pO2 63.2 L ABG pO2 ABG HCO3 ABG O2 Saturation ABG Base Excess ABG Hemoglobin 9.3 L ABG Oxyhemoglobin ABG Sodium ABG Potassium ABG Chloride ABG Glucose 148 H Oxyhemoglobin Carboxyhemoglobin Sodium Potassium Chloride Carbon Dioxide BUN Creatinine Glucose POC Glucose 129 H 136 H Hemoglobin A1c Lactic Acid Calcium Phosphorus Magnesium Ferritin Total Bilirubin AST ALT Lactate Dehydrogenase C-Reactive Protein Albumin Triglycerides Arterial Blood Glucose 148 H Arterial Blood Ionized Calcium Urine Creatinine Coronavirus (PCR) Crossmatch 02/16/21 02/16/21 02/16/21 05:26 06:00 12:14 WBC RBC Hgb Hct MCV MCH MCHC RDW Plt Count Lymph % (Auto) Lymph # (Auto) Seg Neutrophils % Seg Neuts % (Manual) Lymphocytes % (Manual) Monocytes % (Manual) Nucleated RBC % Seg Neutrophils # Seg Neutrophils # Man Lymphocytes # (Manual) Monocytes # (Manual) Eosinophils # (Manual) INR D-Dimer ABG pH POC ABG pCO2 POC ABG pO2 ABG pO2 ABG HCO3 ABG O2 Saturation ABG Base Excess ABG Hemoglobin ABG Oxyhemoglobin ABG Sodium ABG Potassium ABG Chloride ABG Glucose Oxyhemoglobin Carboxyhemoglobin Sodium Potassium Chloride Carbon Dioxide BUN 52 H Creatinine 6.0 H Glucose 138 H POC Glucose 135 H 128 H Hemoglobin A1c Lactic Acid Calcium Phosphorus Magnesium Ferritin Total Bilirubin AST ALT Lactate Dehydrogenase C-Reactive Protein Albumin Triglycerides Arterial Blood Glucose Arterial Blood Ionized Calcium Urine Creatinine Coronavirus (PCR) Crossmatch 02/16/21 02/16/21 02/16/21 17:09 17:09 17:09 WBC RBC Hgb Hct MCV MCH MCHC RDW Plt Count Lymph % (Auto) Lymph # (Auto) Seg Neutrophils % Seg Neuts % (Manual) Lymphocytes % (Manual) Monocytes % (Manual) Nucleated RBC % Seg Neutrophils # Seg Neutrophils # Man Lymphocytes # (Manual) Monocytes # (Manual) Eosinophils # (Manual) INR D-Dimer 4256.08 H ABG pH POC ABG pCO2 POC ABG pO2 ABG pO2 ABG HCO3 ABG O2 Saturation ABG Base Excess ABG Hemoglobin ABG Oxyhemoglobin ABG Sodium ABG Potassium ABG Chloride ABG Glucose Oxyhemoglobin Carboxyhemoglobin Sodium Potassium Chloride Carbon Dioxide BUN Creatinine Glucose POC Glucose Hemoglobin A1c Lactic Acid Calcium Phosphorus Magnesium Ferritin 980.6 H Total Bilirubin AST ALT Lactate Dehydrogenase 441 H C-Reactive Protein 20.20 H Albumin Triglycerides Arterial Blood Glucose Arterial Blood Ionized Calcium Urine Creatinine Coronavirus (PCR) Crossmatch 02/16/21 02/16/21 02/16/21 17:25 23:16 Unknown WBC RBC 2.19 L Hgb 7.1 L Hct 21.3 L MCV 98 H MCH 33 H MCHC RDW 16.0 H Plt Count Lymph % (Auto) Lymph # (Auto) Seg Neutrophils % Seg Neuts % (Manual) 85.0 H Lymphocytes % (Manual) 6.0 L Monocytes % (Manual) Nucleated RBC % 4.0 H Seg Neutrophils # Seg Neutrophils # Man Lymphocytes # (Manual) 0.5 L Monocytes # (Manual) Eosinophils # (Manual) INR D-Dimer ABG pH POC ABG pCO2 POC ABG pO2 ABG pO2 ABG HCO3 ABG O2 Saturation ABG Base Excess ABG Hemoglobin ABG Oxyhemoglobin ABG Sodium ABG Potassium ABG Chloride ABG Glucose Oxyhemoglobin Carboxyhemoglobin Sodium Potassium Chloride Carbon Dioxide BUN Creatinine Glucose POC Glucose 146 H 150 H Hemoglobin A1c Lactic Acid Calcium Phosphorus Magnesium Ferritin Total Bilirubin AST ALT Lactate Dehydrogenase C-Reactive Protein Albumin Triglycerides Arterial Blood Glucose Arterial Blood Ionized Calcium Urine Creatinine Coronavirus (PCR) Crossmatch 02/17/21 02/17/21 02/17/21 04:00 04:14 04:14 WBC RBC Hgb Hct MCV MCH MCHC RDW Plt Count Lymph % (Auto) Lymph # (Auto) Seg Neutrophils % Seg Neuts % (Manual) Lymphocytes % (Manual) Monocytes % (Manual) Nucleated RBC % Seg Neutrophils # Seg Neutrophils # Man Lymphocytes # (Manual) Monocytes # (Manual) Eosinophils # (Manual) INR D-Dimer 3183.35 H ABG pH 7.293 L POC ABG pCO2 59.5 H POC ABG pO2 68.1 L ABG pO2 ABG HCO3 ABG O2 Saturation ABG Base Excess ABG Hemoglobin 7.7 L ABG Oxyhemoglobin ABG Sodium 133.4 L ABG Potassium ABG Chloride ABG Glucose 143 H Oxyhemoglobin Carboxyhemoglobin Sodium 136 L Potassium Chloride 97.3 L Carbon Dioxide BUN 49 H Creatinine 5.3 H Glucose 139 H POC Glucose Hemoglobin A1c Lactic Acid Calcium Phosphorus Magnesium Ferritin Total Bilirubin AST ALT Lactate Dehydrogenase C-Reactive Protein Albumin Triglycerides Arterial Blood Glucose 143 H Arterial Blood Ionized Calcium Urine Creatinine Coronavirus (PCR) Crossmatch 02/17/21 02/17/21 02/17/21 04:14 04:14 04:14 WBC RBC 2.14 L Hgb 6.9 L Hct 21.0 L MCV 98 H MCH MCHC RDW 15.8 H Plt Count Lymph % (Auto) Lymph # (Auto) Seg Neutrophils % Seg Neuts % (Manual) Lymphocytes % (Manual) Monocytes % (Manual) Nucleated RBC % Seg Neutrophils # Seg Neutrophils # Man Lymphocytes # (Manual) Monocytes # (Manual) Eosinophils # (Manual) INR D-Dimer ABG pH POC ABG pCO2 POC ABG pO2 ABG pO2 ABG HCO3 ABG O2 Saturation ABG Base Excess ABG Hemoglobin ABG Oxyhemoglobin ABG Sodium ABG Potassium ABG Chloride ABG Glucose Oxyhemoglobin Carboxyhemoglobin Sodium Potassium Chloride Carbon Dioxide BUN Creatinine Glucose POC Glucose Hemoglobin A1c Lactic Acid Calcium Phosphorus Magnesium Ferritin 894.0 H Total Bilirubin AST ALT Lactate Dehydrogenase 399 H C-Reactive Protein 22.10 H Albumin Triglycerides Arterial Blood Glucose Arterial Blood Ionized Calcium Urine Creatinine Coronavirus (PCR) Crossmatch 02/17/21 02/17/21 02/17/21 06:06 07:45 12:25 WBC RBC Hgb 7.6 L Hct 22.8 L MCV MCH MCHC RDW Plt Count Lymph % (Auto) Lymph # (Auto) Seg Neutrophils % Seg Neuts % (Manual) Lymphocytes % (Manual) Monocytes % (Manual) Nucleated RBC % Seg Neutrophils # Seg Neutrophils # Man Lymphocytes # (Manual) Monocytes # (Manual) Eosinophils # (Manual) INR D-Dimer ABG pH POC ABG pCO2 POC ABG pO2 ABG pO2 ABG HCO3 ABG O2 Saturation ABG Base Excess ABG Hemoglobin ABG Oxyhemoglobin ABG Sodium ABG Potassium ABG Chloride ABG Glucose Oxyhemoglobin Carboxyhemoglobin Sodium Potassium Chloride Carbon Dioxide BUN Creatinine Glucose POC Glucose 134 H Hemoglobin A1c Lactic Acid Calcium Phosphorus Magnesium Ferritin Total Bilirubin AST ALT Lactate Dehydrogenase C-Reactive Protein Albumin Triglycerides Arterial Blood Glucose Arterial Blood Ionized Calcium Urine Creatinine Coronavirus (PCR) Crossmatch See Detail 02/17/21 02/17/21 02/17/21 12:35 17:56 23:34 WBC RBC Hgb Hct MCV MCH MCHC RDW Plt Count Lymph % (Auto) Lymph # (Auto) Seg Neutrophils % Seg Neuts % (Manual) Lymphocytes % (Manual) Monocytes % (Manual) Nucleated RBC % Seg Neutrophils # Seg Neutrophils # Man Lymphocytes # (Manual) Monocytes # (Manual) Eosinophils # (Manual) INR D-Dimer ABG pH POC ABG pCO2 POC ABG pO2 ABG pO2 ABG HCO3 ABG O2 Saturation ABG Base Excess ABG Hemoglobin ABG Oxyhemoglobin ABG Sodium ABG Potassium ABG Chloride ABG Glucose Oxyhemoglobin Carboxyhemoglobin Sodium Potassium Chloride Carbon Dioxide BUN Creatinine Glucose POC Glucose 114 H 128 H 120 H Hemoglobin A1c Lactic Acid Calcium Phosphorus Magnesium Ferritin Total Bilirubin AST ALT Lactate Dehydrogenase C-Reactive Protein Albumin Triglycerides Arterial Blood Glucose Arterial Blood Ionized Calcium Urine Creatinine Coronavirus (PCR) Crossmatch 02/18/21 02/18/21 02/18/21 04:03 04:55 05:02 WBC RBC 2.40 L Hgb 7.5 L Hct 23.1 L MCV 96 H MCH MCHC RDW 16.8 H Plt Count Lymph % (Auto) Lymph # (Auto) Seg Neutrophils % Seg Neuts % (Manual) Lymphocytes % (Manual) Monocytes % (Manual) Nucleated RBC % Seg Neutrophils # Seg Neutrophils # Man Lymphocytes # (Manual) Monocytes # (Manual) Eosinophils # (Manual) INR D-Dimer ABG pH 7.219 L POC ABG pCO2 58.7 H POC ABG pO2 64.2 L ABG pO2 ABG HCO3 ABG O2 Saturation ABG Base Excess ABG Hemoglobin ABG Oxyhemoglobin ABG Sodium 130.5 L ABG Potassium ABG Chloride ABG Glucose 147 H Oxyhemoglobin Carboxyhemoglobin Sodium 134 L Potassium Chloride 97.9 L Carbon Dioxide BUN 64 H Creatinine 6.5 H Glucose 135 H POC Glucose Hemoglobin A1c Lactic Acid Calcium 8.0 L Phosphorus Magnesium Ferritin Total Bilirubin AST ALT Lactate Dehydrogenase C-Reactive Protein Albumin Triglycerides Arterial Blood Glucose 147 H Arterial Blood Ionized Calcium Urine Creatinine Coronavirus (PCR) Crossmatch 02/18/21 02/18/21 02/18/21 05:27 10:00 11:51 WBC RBC Hgb Hct MCV MCH MCHC RDW Plt Count Lymph % (Auto) Lymph # (Auto) Seg Neutrophils % Seg Neuts % (Manual) Lymphocytes % (Manual) Monocytes % (Manual) Nucleated RBC % Seg Neutrophils # Seg Neutrophils # Man Lymphocytes # (Manual) Monocytes # (Manual) Eosinophils # (Manual) INR D-Dimer ABG pH POC ABG pCO2 POC ABG pO2 ABG pO2 ABG HCO3 ABG O2 Saturation ABG Base Excess ABG Hemoglobin ABG Oxyhemoglobin ABG Sodium ABG Potassium ABG Chloride ABG Glucose Oxyhemoglobin Carboxyhemoglobin Sodium Potassium Chloride Carbon Dioxide BUN Creatinine Glucose POC Glucose 130 H 123 H Hemoglobin A1c Lactic Acid Calcium Phosphorus Magnesium Ferritin Total Bilirubin AST ALT Lactate Dehydrogenase C-Reactive Protein Albumin Triglycerides Arterial Blood Glucose Arterial Blood Ionized Calcium Urine Creatinine Coronavirus (PCR) Positive A Crossmatch 02/18/21 02/18/21 02/19/21 18:10 23:35 05:00 WBC RBC Hgb Hct MCV MCH MCHC RDW Plt Count Lymph % (Auto) Lymph # (Auto) Seg Neutrophils % Seg Neuts % (Manual) Lymphocytes % (Manual) Monocytes % (Manual) Nucleated RBC % Seg Neutrophils # Seg Neutrophils # Man Lymphocytes # (Manual) Monocytes # (Manual) Eosinophils # (Manual) INR D-Dimer ABG pH 7.232 L POC ABG pCO2 64.3 H POC ABG pO2 ABG pO2 ABG HCO3 ABG O2 Saturation ABG Base Excess ABG Hemoglobin 8.1 L ABG Oxyhemoglobin ABG Sodium 133.5 L ABG Potassium ABG Chloride ABG Glucose 148 H Oxyhemoglobin Carboxyhemoglobin 1.6 H Sodium Potassium Chloride Carbon Dioxide BUN Creatinine Glucose POC Glucose 123 H 137 H Hemoglobin A1c Lactic Acid Calcium Phosphorus Magnesium Ferritin Total Bilirubin AST ALT Lactate Dehydrogenase C-Reactive Protein Albumin Triglycerides Arterial Blood Glucose 148 H Arterial Blood Ionized Calcium Urine Creatinine Coronavirus (PCR) Crossmatch 02/19/21 02/19/21 02/19/21 05:12 05:45 05:45 WBC RBC Hgb Hct MCV MCH MCHC RDW Plt Count Lymph % (Auto) Lymph # (Auto) Seg Neutrophils % Seg Neuts % (Manual) Lymphocytes % (Manual) Monocytes % (Manual) Nucleated RBC % Seg Neutrophils # Seg Neutrophils # Man Lymphocytes # (Manual) Monocytes # (Manual) Eosinophils # (Manual) INR D-Dimer 4840.82 H ABG pH POC ABG pCO2 POC ABG pO2 ABG pO2 ABG HCO3 ABG O2 Saturation ABG Base Excess ABG Hemoglobin ABG Oxyhemoglobin ABG Sodium ABG Potassium ABG Chloride ABG Glucose Oxyhemoglobin Carboxyhemoglobin Sodium 135 L Potassium Chloride 97.8 L Carbon Dioxide BUN 58 H Creatinine 5.6 H Glucose 140 H POC Glucose 134 H Hemoglobin A1c Lactic Acid Calcium Phosphorus Magnesium Ferritin Total Bilirubin AST ALT Lactate Dehydrogenase 345 H C-Reactive Protein 15.20 H Albumin Triglycerides 195 H Arterial Blood Glucose Arterial Blood Ionized Calcium Urine Creatinine Coronavirus (PCR) Crossmatch 02/19/21 02/19/21 02/19/21 05:45 12:00 17:48 WBC RBC Hgb Hct MCV MCH MCHC RDW Plt Count Lymph % (Auto) Lymph # (Auto) Seg Neutrophils % Seg Neuts % (Manual) Lymphocytes % (Manual) Monocytes % (Manual) Nucleated RBC % Seg Neutrophils # Seg Neutrophils # Man Lymphocytes # (Manual) Monocytes # (Manual) Eosinophils # (Manual) INR D-Dimer ABG pH POC ABG pCO2 POC ABG pO2 ABG pO2 ABG HCO3 ABG O2 Saturation ABG Base Excess ABG Hemoglobin ABG Oxyhemoglobin ABG Sodium ABG Potassium ABG Chloride ABG Glucose Oxyhemoglobin Carboxyhemoglobin Sodium Potassium Chloride Carbon Dioxide BUN Creatinine Glucose POC Glucose 122 H 119 H Hemoglobin A1c Lactic Acid Calcium Phosphorus Magnesium Ferritin 951.8 H Total Bilirubin AST ALT Lactate Dehydrogenase C-Reactive Protein Albumin Triglycerides Arterial Blood Glucose Arterial Blood Ionized Calcium Urine Creatinine Coronavirus (PCR) Crossmatch 02/20/21 02/20/21 02/20/21 03:20 04:00 11:48 WBC RBC Hgb Hct MCV MCH MCHC RDW Plt Count Lymph % (Auto) Lymph # (Auto) Seg Neutrophils % Seg Neuts % (Manual) Lymphocytes % (Manual) Monocytes % (Manual) Nucleated RBC % Seg Neutrophils # Seg Neutrophils # Man Lymphocytes # (Manual) Monocytes # (Manual) Eosinophils # (Manual) INR D-Dimer ABG pH 7.276 L POC ABG pCO2 57.3 H POC ABG pO2 71.0 L ABG pO2 ABG HCO3 ABG O2 Saturation ABG Base Excess ABG Hemoglobin 8.2 L ABG Oxyhemoglobin 91.9 L ABG Sodium 128.1 L ABG Potassium 4.8 H ABG Chloride ABG Glucose Oxyhemoglobin Carboxyhemoglobin 1.6 H Sodium 136 L Potassium Chloride Carbon Dioxide BUN 69 H Creatinine 6.4 H Glucose POC Glucose 131 H Hemoglobin A1c Lactic Acid Calcium 8.1 L Phosphorus Magnesium Ferritin Total Bilirubin AST ALT Lactate Dehydrogenase C-Reactive Protein Albumin Triglycerides Arterial Blood Glucose Arterial Blood Ionized Calcium 4.5 L Urine Creatinine Coronavirus (PCR) Crossmatch 02/20/21 02/20/21 02/21/21 18:05 23:28 02:53 WBC RBC Hgb Hct MCV MCH MCHC RDW Plt Count Lymph % (Auto) Lymph # (Auto) Seg Neutrophils % Seg Neuts % (Manual) Lymphocytes % (Manual) Monocytes % (Manual) Nucleated RBC % Seg Neutrophils # Seg Neutrophils # Man Lymphocytes # (Manual) Monocytes # (Manual) Eosinophils # (Manual) INR D-Dimer ABG pH 7.288 L POC ABG pCO2 52.7 H POC ABG pO2 81.5 L ABG pO2 ABG HCO3 ABG O2 Saturation ABG Base Excess ABG Hemoglobin 8.5 L ABG Oxyhemoglobin 93.6 L ABG Sodium 132.5 L ABG Potassium 4.6 H ABG Chloride ABG Glucose 106 H Oxyhemoglobin Carboxyhemoglobin 1.6 H Sodium Potassium Chloride Carbon Dioxide BUN Creatinine Glucose POC Glucose 114 H 118 H Hemoglobin A1c Lactic Acid Calcium Phosphorus Magnesium Ferritin Total Bilirubin AST ALT Lactate Dehydrogenase C-Reactive Protein Albumin Triglycerides Arterial Blood Glucose 106 H Arterial Blood Ionized Calcium 4.4 L Urine Creatinine Coronavirus (PCR) Crossmatch 02/21/21 02/21/21 02/21/21 05:29 11:42 16:35 WBC RBC Hgb Hct MCV MCH MCHC RDW Plt Count Lymph % (Auto) Lymph # (Auto) Seg Neutrophils % Seg Neuts % (Manual) Lymphocytes % (Manual) Monocytes % (Manual) Nucleated RBC % Seg Neutrophils # Seg Neutrophils # Man Lymphocytes # (Manual) Monocytes # (Manual) Eosinophils # (Manual) INR D-Dimer ABG pH POC ABG pCO2 POC ABG pO2 ABG pO2 ABG HCO3 ABG O2 Saturation ABG Base Excess ABG Hemoglobin ABG Oxyhemoglobin ABG Sodium ABG Potassium ABG Chloride ABG Glucose Oxyhemoglobin Carboxyhemoglobin Sodium Potassium 5.6 H Chloride 97.6 L Carbon Dioxide BUN 68 H Creatinine 5.7 H Glucose 160 H POC Glucose 111 H 131 H Hemoglobin A1c Lactic Acid Calcium 8.0 L Phosphorus 7.90 H Magnesium 2.60 H Ferritin Total Bilirubin AST ALT Lactate Dehydrogenase C-Reactive Protein Albumin Triglycerides Arterial Blood Glucose Arterial Blood Ionized Calcium Urine Creatinine Coronavirus (PCR) Crossmatch 02/21/21 02/22/21 02/22/21 17:17 00:04 04:22 WBC RBC Hgb Hct MCV MCH MCHC RDW Plt Count Lymph % (Auto) Lymph # (Auto) Seg Neutrophils % Seg Neuts % (Manual) Lymphocytes % (Manual) Monocytes % (Manual) Nucleated RBC % Seg Neutrophils # Seg Neutrophils # Man Lymphocytes # (Manual) Monocytes # (Manual) Eosinophils # (Manual) INR D-Dimer ABG pH 7.250 L POC ABG pCO2 60.1 H POC ABG pO2 57.6 L ABG pO2 ABG HCO3 ABG O2 Saturation ABG Base Excess ABG Hemoglobin 8.8 L ABG Oxyhemoglobin 87.0 L ABG Sodium 133.4 L ABG Potassium 5.1 H ABG Chloride ABG Glucose 124 H Oxyhemoglobin Carboxyhemoglobin Sodium Potassium Chloride Carbon Dioxide BUN Creatinine Glucose POC Glucose 135 H 121 H Hemoglobin A1c Lactic Acid Calcium Phosphorus Magnesium Ferritin Total Bilirubin AST ALT Lactate Dehydrogenase C-Reactive Protein Albumin Triglycerides Arterial Blood Glucose 124 H Arterial Blood Ionized Calcium Urine Creatinine Coronavirus (PCR) Crossmatch 02/22/21 02/22/21 02/22/21 05:33 09:41 09:41 WBC 13.2 H RBC 2.35 L Hgb 7.5 L Hct 22.7 L MCV 96 H MCH MCHC RDW 17.0 H Plt Count Lymph % (Auto) Lymph # (Auto) Seg Neutrophils % Seg Neuts % (Manual) 93.0 H Lymphocytes % (Manual) 4.0 L Monocytes % (Manual) Nucleated RBC % 1.0 H Seg Neutrophils # Seg Neutrophils # Man 12.3 H Lymphocytes # (Manual) 0.5 L Monocytes # (Manual) Eosinophils # (Manual) INR D-Dimer ABG pH POC ABG pCO2 POC ABG pO2 ABG pO2 ABG HCO3 ABG O2 Saturation ABG Base Excess ABG Hemoglobin ABG Oxyhemoglobin ABG Sodium ABG Potassium ABG Chloride ABG Glucose Oxyhemoglobin Carboxyhemoglobin Sodium Potassium 5.4 H Chloride Carbon Dioxide BUN 61 H Creatinine 5.5 H Glucose 117 H POC Glucose 114 H Hemoglobin A1c Lactic Acid Calcium 8.3 L Phosphorus Magnesium Ferritin Total Bilirubin AST ALT Lactate Dehydrogenase C-Reactive Protein Albumin Triglycerides Arterial Blood Glucose Arterial Blood Ionized Calcium Urine Creatinine Coronavirus (PCR) Crossmatch 02/22/21 02/22/21 02/23/21 12:08 17:06 04:00 WBC RBC Hgb Hct MCV MCH MCHC RDW Plt Count Lymph % (Auto) Lymph # (Auto) Seg Neutrophils % Seg Neuts % (Manual) Lymphocytes % (Manual) Monocytes % (Manual) Nucleated RBC % Seg Neutrophils # Seg Neutrophils # Man Lymphocytes # (Manual) Monocytes # (Manual) Eosinophils # (Manual) INR D-Dimer ABG pH 7.246 L POC ABG pCO2 POC ABG pO2 ABG pO2 119.4 H ABG HCO3 26.6 H ABG O2 Saturation ABG Base Excess ABG Hemoglobin 8.8 L ABG Oxyhemoglobin ABG Sodium ABG Potassium ABG Chloride ABG Glucose Oxyhemoglobin Carboxyhemoglobin Sodium Potassium Chloride Carbon Dioxide BUN Creatinine Glucose POC Glucose 133 H 114 H Hemoglobin A1c Lactic Acid Calcium Phosphorus Magnesium Ferritin Total Bilirubin AST ALT Lactate Dehydrogenase C-Reactive Protein Albumin Triglycerides Arterial Blood Glucose Arterial Blood Ionized Calcium Urine Creatinine Coronavirus (PCR) Crossmatch 02/23/21 02/23/21 02/24/21 06:20 11:42 03:43 WBC RBC Hgb Hct MCV MCH MCHC RDW Plt Count Lymph % (Auto) Lymph # (Auto) Seg Neutrophils % Seg Neuts % (Manual) Lymphocytes % (Manual) Monocytes % (Manual) Nucleated RBC % Seg Neutrophils # Seg Neutrophils # Man Lymphocytes # (Manual) Monocytes # (Manual) Eosinophils # (Manual) INR D-Dimer ABG pH 7.287 L POC ABG pCO2 54.7 H POC ABG pO2 ABG pO2 ABG HCO3 ABG O2 Saturation ABG Base Excess ABG Hemoglobin 8.5 L ABG Oxyhemoglobin ABG Sodium 135.6 L ABG Potassium ABG Chloride ABG Glucose 117 H Oxyhemoglobin Carboxyhemoglobin Sodium Potassium Chloride 97.6 L Carbon Dioxide BUN 79 H Creatinine 6.2 H Glucose POC Glucose 108 H Hemoglobin A1c Lactic Acid Calcium 8.3 L Phosphorus Magnesium Ferritin Total Bilirubin AST ALT Lactate Dehydrogenase C-Reactive Protein Albumin Triglycerides Arterial Blood Glucose 117 H Arterial Blood Ionized Calcium Urine Creatinine Coronavirus (PCR) Crossmatch 02/24/21 02/24/21 02/24/21 04:25 04:25 04:25 WBC 11.5 H RBC 2.47 L Hgb 7.7 L Hct 23.5 L MCV 95 H MCH MCHC RDW 16.7 H Plt Count Lymph % (Auto) Lymph # (Auto) Seg Neutrophils % Seg Neuts % (Manual) 82.0 H Lymphocytes % (Manual) 3.0 L Monocytes % (Manual) 11.0 H Nucleated RBC % Seg Neutrophils # Seg Neutrophils # Man 9.4 H Lymphocytes # (Manual) 0.3 L Monocytes # (Manual) 1.3 H Eosinophils # (Manual) INR D-Dimer 4695.21 H ABG pH POC ABG pCO2 POC ABG pO2 ABG pO2 ABG HCO3 ABG O2 Saturation ABG Base Excess ABG Hemoglobin ABG Oxyhemoglobin ABG Sodium ABG Potassium ABG Chloride ABG Glucose Oxyhemoglobin Carboxyhemoglobin Sodium Potassium Chloride Carbon Dioxide BUN 68 H Creatinine 4.9 H Glucose 113 H POC Glucose Hemoglobin A1c Lactic Acid Calcium Phosphorus Magnesium Ferritin Total Bilirubin AST ALT Lactate Dehydrogenase C-Reactive Protein 7.20 H Albumin Triglycerides Arterial Blood Glucose Arterial Blood Ionized Calcium Urine Creatinine Coronavirus (PCR) Crossmatch 02/24/21 02/24/21 02/24/21 04:25 05:01 11:12 WBC RBC Hgb Hct MCV MCH MCHC RDW Plt Count Lymph % (Auto) Lymph # (Auto) Seg Neutrophils % Seg Neuts % (Manual) Lymphocytes % (Manual) Monocytes % (Manual) Nucleated RBC % Seg Neutrophils # Seg Neutrophils # Man Lymphocytes # (Manual) Monocytes # (Manual) Eosinophils # (Manual) INR D-Dimer ABG pH POC ABG pCO2 POC ABG pO2 ABG pO2 ABG HCO3 ABG O2 Saturation ABG Base Excess ABG Hemoglobin ABG Oxyhemoglobin ABG Sodium ABG Potassium ABG Chloride ABG Glucose Oxyhemoglobin Carboxyhemoglobin Sodium Potassium Chloride Carbon Dioxide BUN Creatinine Glucose POC Glucose 116 H 112 H Hemoglobin A1c Lactic Acid Calcium Phosphorus Magnesium Ferritin 1116.0 H Total Bilirubin AST ALT Lactate Dehydrogenase C-Reactive Protein Albumin Triglycerides Arterial Blood Glucose Arterial Blood Ionized Calcium Urine Creatinine Coronavirus (PCR) Crossmatch 02/24/21 02/25/21 02/25/21 18:11 03:42 05:58 WBC RBC Hgb Hct MCV MCH MCHC RDW Plt Count Lymph % (Auto) Lymph # (Auto) Seg Neutrophils % Seg Neuts % (Manual) Lymphocytes % (Manual) Monocytes % (Manual) Nucleated RBC % Seg Neutrophils # Seg Neutrophils # Man Lymphocytes # (Manual) Monocytes # (Manual) Eosinophils # (Manual) INR D-Dimer ABG pH 7.287 L POC ABG pCO2 58.2 H POC ABG pO2 ABG pO2 ABG HCO3 ABG O2 Saturation ABG Base Excess ABG Hemoglobin 8.4 L ABG Oxyhemoglobin 93.7 L ABG Sodium ABG Potassium ABG Chloride ABG Glucose 104 H Oxyhemoglobin Carboxyhemoglobin Sodium Potassium Chloride Carbon Dioxide BUN Creatinine Glucose POC Glucose 109 H 109 H Hemoglobin A1c Lactic Acid Calcium Phosphorus Magnesium Ferritin Total Bilirubin AST ALT Lactate Dehydrogenase C-Reactive Protein Albumin Triglycerides Arterial Blood Glucose 104 H Arterial Blood Ionized Calcium 4.5 L Urine Creatinine Coronavirus (PCR) Crossmatch 02/25/21 02/25/21 02/25/21 09:03 13:47 16:50 WBC RBC Hgb Hct MCV MCH MCHC RDW Plt Count Lymph % (Auto) Lymph # (Auto) Seg Neutrophils % Seg Neuts % (Manual) Lymphocytes % (Manual) Monocytes % (Manual) Nucleated RBC % Seg Neutrophils # Seg Neutrophils # Man Lymphocytes # (Manual) Monocytes # (Manual) Eosinophils # (Manual) INR D-Dimer 6536.84 H ABG pH POC ABG pCO2 POC ABG pO2 ABG pO2 ABG HCO3 ABG O2 Saturation ABG Base Excess ABG Hemoglobin ABG Oxyhemoglobin ABG Sodium ABG Potassium ABG Chloride ABG Glucose Oxyhemoglobin Carboxyhemoglobin Sodium Potassium Chloride Carbon Dioxide BUN Creatinine Glucose POC Glucose 144 H 114 H Hemoglobin A1c Lactic Acid Calcium Phosphorus Magnesium Ferritin Total Bilirubin AST ALT Lactate Dehydrogenase C-Reactive Protein Albumin Triglycerides Arterial Blood Glucose Arterial Blood Ionized Calcium Urine Creatinine Coronavirus (PCR) Crossmatch 02/25/21 02/26/21 02/26/21 23:53 03:35 05:36 WBC RBC Hgb Hct MCV MCH MCHC RDW Plt Count Lymph % (Auto) Lymph # (Auto) Seg Neutrophils % Seg Neuts % (Manual) Lymphocytes % (Manual) Monocytes % (Manual) Nucleated RBC % Seg Neutrophils # Seg Neutrophils # Man Lymphocytes # (Manual) Monocytes # (Manual) Eosinophils # (Manual) INR D-Dimer ABG pH 7.179 L POC ABG pCO2 76.6 H POC ABG pO2 ABG pO2 ABG HCO3 ABG O2 Saturation ABG Base Excess ABG Hemoglobin 9.0 L ABG Oxyhemoglobin ABG Sodium 134.8 L ABG Potassium ABG Chloride ABG Glucose 118 H Oxyhemoglobin Carboxyhemoglobin Sodium Potassium Chloride Carbon Dioxide BUN Creatinine Glucose POC Glucose 110 H 113 H Hemoglobin A1c Lactic Acid Calcium Phosphorus Magnesium Ferritin Total Bilirubin AST ALT Lactate Dehydrogenase C-Reactive Protein Albumin Triglycerides Arterial Blood Glucose 118 H Arterial Blood Ionized Calcium Urine Creatinine Coronavirus (PCR) Crossmatch 02/26/21 02/26/21 02/26/21 05:48 05:48 05:48 WBC 11.4 H RBC 2.40 L Hgb 7.5 L Hct 23.2 L MCV 97 H MCH MCHC RDW 17.4 H Plt Count Lymph % (Auto) Lymph # (Auto) Seg Neutrophils % Seg Neuts % (Manual) Lymphocytes % (Manual) Monocytes % (Manual) Nucleated RBC % Seg Neutrophils # Seg Neutrophils # Man Lymphocytes # (Manual) Monocytes # (Manual) Eosinophils # (Manual) INR D-Dimer ABG pH POC ABG pCO2 POC ABG pO2 ABG pO2 ABG HCO3 ABG O2 Saturation ABG Base Excess ABG Hemoglobin ABG Oxyhemoglobin ABG Sodium ABG Potassium ABG Chloride ABG Glucose Oxyhemoglobin Carboxyhemoglobin Sodium Potassium Chloride Carbon Dioxide BUN 72 H Creatinine 4.5 H Glucose 112 H POC Glucose Hemoglobin A1c Lactic Acid Calcium 7.7 L Phosphorus Magnesium Ferritin 867.8 H Total Bilirubin AST ALT Lactate Dehydrogenase C-Reactive Protein 5.90 H Albumin Triglycerides Arterial Blood Glucose Arterial Blood Ionized Calcium Urine Creatinine Coronavirus (PCR) Crossmatch 02/26/21 02/26/21 08:00 11:29 WBC RBC Hgb Hct MCV MCH MCHC RDW Plt Count Lymph % (Auto) Lymph # (Auto) Seg Neutrophils % Seg Neuts % (Manual) Lymphocytes % (Manual) Monocytes % (Manual) Nucleated RBC % Seg Neutrophils # Seg Neutrophils # Man Lymphocytes # (Manual) Monocytes # (Manual) Eosinophils # (Manual) INR D-Dimer ABG pH 7.228 L POC ABG pCO2 70.2 H POC ABG pO2 79.7 L ABG pO2 ABG HCO3 ABG O2 Saturation ABG Base Excess ABG Hemoglobin 7.6 L ABG Oxyhemoglobin 93.2 L ABG Sodium 135.7 L ABG Potassium ABG Chloride ABG Glucose 119 H Oxyhemoglobin Carboxyhemoglobin Sodium Potassium Chloride Carbon Dioxide BUN Creatinine Glucose POC Glucose 110 H Hemoglobin A1c Lactic Acid Calcium Phosphorus Magnesium Ferritin Total Bilirubin AST ALT Lactate Dehydrogenase C-Reactive Protein Albumin Triglycerides Arterial Blood Glucose 119 H Arterial Blood Ionized Calcium Urine Creatinine Coronavirus (PCR) Crossmatch Chest x-ray: report reviewed, image reviewed
[2021-02-27] MEDS: HEPARIN 5,000 UNIT/1 ML VIAL SUB-Q SCH ×3 (07:00→21:44)
[2021-02-27] MEDS: fentaNYL DRIP Premix 2,000 MCG/100 ML BAG IV SCH ×2 (07:01→15:19)
[2021-02-27] MEDS: LANSOPRAZOLE 30 MG SOLUTAB FEEDTUBE SCH (09:56)
[2021-02-27] MEDS: SENNOSIDES/DOCUSATE SODIUM 8.6/50 MG TAB PO SCH ×2 (09:56→21:44)
[2021-02-27] MEDS ORDERED: SODIUM CHLORIDE 0.9% 100 ML IV PRN (11:00)
--- NOTE | 2021-02-27 12:47 | Progress Note ---
Assessment and Plan Assessment and plan: This is a 60-year-old male with diabetes mellitus, hypertension, hyperlipidemia, chronic renal insufficiency who was admitted on 01/23 as a COVID-19 PUI with Sepsis, COVID-19 pneumonia, coag negative staph bacteremia, acute hypoxic respiratory failure, and acute kidney injury. Sepsis COVID-19 pneumonia Coag-neg Staph bacteremia Acute hypoxic respiratory failure Acute kidney injury, HD initiated 02/03 Anemia Diabetes mellitus Hypertension Hyperlipidemia Chronic renal insufficiency Elevated D-dimer -CCM, nephrology, infectious disease, GI , neurology consulted, appreciate recommendations -s/p Antibiotic therapy, remdesivir, Steroid therapy -COVID-19 PCR positive, Pneumonia on CXR -Mechanical ventilation, wean as tolerated -VAP bundle -HD per nephrology -S/p 4 units PRBC during stay -Trend BMP, CBC, COVID-19 inflammatory markers -Bilateral lower extremity and upper extremity Doppler ultrasound negative for DVT/SVT -SSI and Long-acting insulin -Accu-Cheks every 6 while on tube feedings -Hold home antihypertensive regimen and resume when appropriate -S/p vasopressor support -Blood pressure monitoring per protocol -S/p NaHCO3 gtt -02/17 CT head showed no acute intracranial abnormality, paranasal sinus disease -Bowel regimen -02/24 EEG finding consistent with encephalopathy and/or drug effect, possibility of toxic metabolic etiology cannot be excluded, possibility of structural lesion on the left side cannot be excluded given left being slightly slower than the right. -Sedation with fentanyl and Precedex DVT/GI prophylaxis: SCDs to bilateral lower extremities while in bed, PPI, heparin subq Dispo: ICU The high probability of a clinically significant, sudden or life threatening deterioration of the [multi] system(s) required my full and direct attention, intervention and personal management. The aggregate critical care time was [35] minutes. This time is in addition to time spent performing reported procedures but includes the following: [x] Data Review and interpretation [x] Patient assessment and monitoring of vital signs [x] Documentation [x] Medication orders and management History Interval history: This is a 60-year-old male with diabetes mellitus, hypertension, hyperlipidemia, chronic renal insufficiency presents to the emergency department on 01/23 with shortness of breath, fevers chills, loss of smell and taste and body aches for the past 3 days via EMS. Per EMS patient's oxygen saturation on room air was 50% and after being placed on nonrebreather it increased 75%. Upon arrival to the emergency department patient was being bagged by EMS. In the emergency room patient was intubated due to severe hypoxia, increased work of breathing and lethargy. Patient was sedated on propofol and fentanyl. Patient presented with fever, tachycardia, tachypnea and acute hypoxic respiratory failure with PNA on CXR meeting Sepsis criteria. Lab work in the emergency department revealed hyponatremia, hypokalemia, hypochloremia, elevated CR/BUN and CXR showed bilateral pneumonia. Patient was admitted to the hospital service as a COVID-19 PUI with consults to infectious disease, nephrology and critical care medicine. 01/24/2021: Patient is intubated and sedated, patient is positive for COVID-19 infection. ID was consulted and put on dexamethasone and remdesivir. Patient has DEISI and nephrology is following. Creatinine stable, patient is urinating. Discussed with nephrology and he is okay with remdesivir. Pulmonary critical care is following for his vent setting. PEEP of 8 and FiO2 of 85%. Patient was alert and off sedatives. 01/25/2021; patient is intubated and on mechanical ventilation. Continue with treatment of Covid. Nephrology and ID is following. Pulmonary is following for vent management 01/26: Remains on mechanical ventilation and [facility] increased his PEEP. [facility] has ordered Precedex for sedation. Possibly need to prone this p.m. No acute events reported overnight. This morning his D-dimer is greater than 10,000 and we have started him on Lovenox 120 mg daily. Nutrition has been consulted for initiation of tube feedings. Patient remains sedated on propofol 40 and fentanyl for the time my examination this morning. 01/27: Continue Lovenox, remdesivir and empiric antibiotics. Patient had a T-max of 101 overnight. The time of examination patient is on CMV 500/18/14/0.61. Kidney function slightly worsened. Sedated on fentanyl ground-level fall and Precedex. Nephrology has increased IV fluids to 100 ml/hr. Continue to trend BMP and CBC. Sedation vacation attempt by RN this AM. 01/28: Patient completed antibiotics today [facility] will paralyze patient and increase sedation. PICC line ordered for possible vasopressor therapy need. Patient's D-dimer remains greater than 10,000 and he still has hyperchloremia. Patient's kidney function has improved today. May need to prone the patient if no improvement in oxygenation is noted in the next 24 hours. [facility] with propofol, fentanyl and Precedex and is on assist control 500/18/16/0.80 hypoxic on ABG on 60% FiO2. 4: Patient was started on Nimbex yesterday and his ABG this morning showed respiratory acidosis with hypercapnia and his respiratory rate was increased. We will obtain a repeat ABG this afternoon. This morning patient is hypernatremic, hyperkalemic and hyperchloremic. His potassium has been corrected with the management and will obtain repeat BMP tomorrow. His kidney functions have remained stable and we will await nephrology's input. No acute events reported overnight. This morning the time my examination patient sedated with propofol, Precedex and fentanyl and paralyzed with Nimbex. He is on assist control 500/24/16 0.80. 01/30: This morning patient is hypokalemic again and was given Kayexalate. Patient has hypernatremia and hyper chloremia and his renal function is slightly worse after receiving Lasix yesterday. His D-dimer remains greater than 10,000 and he is still on a paralytic. Patient is sedated on Precedex, fentanyl, propofol. Mechanical ventilation settings seven-point /61/28. [facility] has decided to continue paralytics for 48 more hours and will attempt proning the patient. Increased free water flushes 300 cc every 4 hours. Patient states has restarted his antibiotics cefepime and vancomycin and recultured. 01/31/21 Hyperkalemia, Treated 02/01/21 Hyperkalemia, Treated 02/02: Patient's kidney function continues to worsen and a stat BMP this morning shows BUN/creatinine 20/6.1 and he remains hypocalcemic and hypernatremic, h ypokalemic and hypochloremic. Patient received 2 g of calcium gluconate and Kayexalate and his repeat potassium was 4.3 this afternoon. He remains antibiotic therapy and steroids. Nephrology has placed the patient on bicarb drip given metabolic acidosis and has decided to hold off hemodialysis till tomorrow.The time my examination patient is sedated on fentanyl, Precedex and on assist control 500/20/12/0.70. s/p paralytic. 02/03: Today patient's ABG shows respiratory acidosis however it is improving, hypernatremia, hyperchloremia, metabolic acidosis on BMP, worsening kidney function BUN/creatinine 130/9.2 with hyperphosphatemia. Patient received a Vas- Cath to his right IJ for initiation of dialysis. At the time of my examination patient remains sedated on fentanyl, propofol and Precedex with vasopressor support with Levophed at 2. 02/04: At the time of examination patient was on assist control tidal volume 500, rate 40, PEEP of 12, FiO2 85%. Patient had a T-max of 100.9 and infectious disease has stopped his vancomycin given negative MRSA. This afternoon patient respiked his temperature and was pancultured again. Patient was started on hemodialysis yesterday and will receive HD again today. Patient is sedated on Precedex, propofol, fentanyl and remains on Levophed. He is on assist control tidal volume 500, rate of 30, PEEP of 12, FiO2 of 85%. Patient still has some respiratory acidosis however his hypernatremia and hyperchloremia have improved and his metabolic acidosis has resolved. Patient will receive hemodialysis today 02/05: Patient continues to have low-grade fever temp this morning time examination he was on assist control tidal volume 500, and sedated on pro pofol/fentanyl/Precedex and is on Levophed. Hemodialysis per nephrology. Antibiotics per ID. Patient's blood culture from 02/04 grew gram-positive cocci in clusters in 1/2 bottles and he was started on vancomycin. 02/06: Patients ABG showed respiratory acidosis and the tracings were changed however a repeat ABG showed showed acidosis.[facility] will start a bicarb drip after giving 2 amps of bicarb push. Yesterday patient blood cultures grew gram- positive cocci and he was started on vancomycin. At the time my examination patient was on assist control tidal volume 550, rate 34, PEEP 16, FiO2 90% and sedated on fentanyl, Precedex, propofol elevated pressure support with Levophed. Bilateral lower extremity Doppler ultrasounds done yesterday showed no evidence of DVT/SVT. 02/07/2021; patient is still on the vent with PEEP of 16 and FiO2 of 90%, sedated with fentanyl Precedex and propofol. Patient still requiring Levophed. Patient was sedated yesterday and was given bicarb push. Blood culture grew gram-positive cocci in clusters and he is on vancomycin, will follow identification. 02/08/2021;patient is still on the vent with PEEP of 16 and FiO2 of 90%, sedated with fentanyl Precedex and propofol. Patient still requiring Levophed. Patient was sedated yesterday and was given bicarb push. Blood culture grew gram- positive cocci in clusters and he is on vancomycin, will follow identification. Patient is currently on dialysis. Patient is anemic transfuse if hemoglobin is below 7. 02/09: This morning patient has slight hypokalemia, hypochorlemia, hyponatremia and metabolic alkalosis. [facility] will continue bicarb gtt given that the patient does not have HD access at this time. We will replete the potassium and recheck BMP in the AM. We will type and cross in anticipation of PRBC transfusion. This morning he is sedated on Ativan, fentayl, and precedex. Will obtain a triglyceride level today in hopes to resume propofol. Patient is alkalotic and BMP however we will continue with bicarb drip per [facility] given that the patient does not have any access for hemodialysis. Anticipate replacing hemodialysis catheter tomorrow or Tuesday. The time my examination he is on AC TV 550, Ra te 34, PeeP 16, FiO2 .65. 02/10: A.m. labs still pending, [facility] plans to replace HD catheter tomorrow as the patient is still febrile however his fever curve is trending down, remains on a bicarb drip and on vancomycin. Today at the time my examination patient was sedated on Precedex, Ativan and fentanyl and he is on assist control tidal 11/04/1951, rate 34, PEEP 16, FiO2 65%. Overnight patient was hypotensive and received 1 dose of midodrine. 02/11: Patient is still having low-grade temperatures that we will obtain a bilateral lower upper extremity venous Doppler ultrasound given that his repeat cultures have been negative so far. Patient received a Vas-Cath today for hemodialysis. The time examination patient is on assist control tidal volume 550, rate of 34, PEEP of 16 and FiO2 of 75%. Patient was hypokalemic and anemic yesterday which were both repleted with potassium and 1 unit PRBC. 02/12: 02/12: Patient had a 12-second run of V. tach today, his potassium and magnesium were low which was repleted. Renal adjusted potassium bath. We will obtain a triglyceride level in hopes to restarting to prevent as needed. This morning at the time my examination patient was sedated on fentanyl, Ativan and Precedex and remained on a bicarb drip. He was on assist control tidal volume 550, rate 34, PEEP 16, FiO2 85%. We will obtain a occult stool given no evident source of bleeding and need for transfusion. Anemia possibly due to hemodialysis. 02/13: Patient's T-max was 100.7, remains on fentanyl, Ativan, Precedex and bicarb drip this morning at some examination on assist control tidal volume 550, rate 34, PEEP 16 and FiO2 85%. On the labs this morning is slightly hypokalemic and remains metabolic alkalotic on BMP. His occult was positive. His Lovenox and consult GI. Patient received hemodialysis today. 02/14: cont PPI, GI recommended to scope now, monitor clinically, tolerating TF, remains intubated. Hb 6.9 today - transfuse another unit. very poor prognosis. 02/15: H&H appears to be stable following 1 unit of transfusion yesterday. Continue to hold heparin and aspirin products. Continue to monitor clinically. Poor prognosis. Wean off from vent as tolerated. 02/16: Infectious disease has signed off, his Ativan drip was discontinued and to prevent drip will be started when patient needs it. T-max 100.6 yesterday afternoon. He received hemodialysis today and at the time my examination was still on mechanical ventilation assist control tidal volume 550, rate 34, PEEP 16 on 70% FiO2. Patient was sedated on fentanyl dexamethasone and Ativan. No acute events reported overnight. 02/17: This morning patient was scheduled to get 2 units PRBC however his repeat H/H after 1 unit PRBC was 7.6/22.8 and the width of the second unit PRBC. This morning patient was sedated on fentanyl, propofol, Precedex and on assist control tolerated by 50, rate 34, PEEP of 16, FiO2 35%. Wound care was consulted today for his upper lip wound. Nephrology continues to withhold dialysis. No acute events reported overnight. Dr. Adkins was unable to contact family for updates. 02/18: Family updated by Dr. Adkins and Dr. Reddy. Patient had a hemodialysis today. The time my examination patient was on assist control tidal volume 550, rate 34, PEEP 16 and FiO2 35%. Overnight patient had a CT head and he was placed on 3% FiO2 and took "a long time to recover" per RN report. 02/19: Patient's D-dimer is trending up therefore he was started on prophylactic anticoagulation, no bowel movement for several days so he was started on mag citrate today. The time examination patient is sedated on Precedex 1.2, fentanyl 3, propofol 20 on assist control tidal volume 550, rate 34, PEEP 16, 80% FiO2 and on his ABG his PaO2 is 106. RT will try to wean as tolerated. Repeat COVID-19 PCR today was positive.Dr. Adkins updated the family today. 02/20: Patient received hemodialysis today. In the time my examination patient was sedated on Precedex, fentanyl, propofol and on assist control tidal line 550, rate 34, PEEP of 16 and 75% FiO2. Patient had a bowel movement yesterday. 02/21 no new concerns at this time afebrile Hospital course remains uncomplicated . 02/22. Hospital course complicated by an episode of ectopy over the p.m. Patient required Levophed for blood pressure control. Remains intubated sedated. Tolerated hemodialysis yesterday. 02/23: At the time my examination patient is on assist control tidal volume 550, rate 34, PEEP 16, FiO2 70% and is not sedated. Patient does not follow commands however his eyes open spontaneously and he does not track/focus. 02/24: Neurology consulted, EEG pending. No acute events reported overnight. Patient remains on hyperventilation totaling 550, rate 34, PEEP of 16 on 70% FiO2. Patient received hemodialysis yesterday. 02/25: EEG from 02/24 is suggestive of encephalopathy (toxic metabolic etiology cannot be excluded). This afternoon his peak pressures and and mean airway pressure is elevated so we obtained a CXR and ABG. Results were called to Dr. Masters. Patient received 2 mg of Versed was placed back on his sedation with fentanyl and Precedex. 02/26: Patient is on pressure ventilation FiO2 70%, Pressure inspiration 25, rate 34, PEEP 10 and sedated on fentanyl at 2mcgs and Precedex at 0.2. We will obtain a cxr for evaluation. Patient seems to be much more comfortable today. 02/27: CXr unchanges, at this time my examination patient is on pressure control ventilation FiO2 70%, pressure support 26, rate 34 n.p.o. for 10 and sedated on fentanyl at 2 and Precedex at 0.1. His latest ABG 7.3, CO2 49, PO2 111, base excess 24. Patient is to receive hemodialysis today. No acute events reported overnight. Patient still not following commands. Hospitalist Physical - Constitutional Vitals: Temp Pulse Resp BP Pulse Ox 98.2 F 102 H 14 127/76 96 02/27/21 11:45 02/27/21 12:45 02/27/21 11:45 02/27/21 12:45 02/27/21 12:10 General appearance: Present: no acute distress, obese, other (Sedated on mechanical ventilation) - EENT Eyes: Present: PERRL ENT: poor dentition - Neck Neck: Absent: masses or JVD, cervical LAD - Respiratory Respiratory effort: normal Respiratory: bilateral: diminished - Cardiovascular Rhythm: regular Heart Sounds: Present: S1 & S2. Absent: systolic murmur, diastolic murmur - Extremities Extremities: no ischemia, pulses intact, pulses symmetrical, normal temperature, normal color Extremity abnormal: edema Peripheral Pulses: within normal limits - Abdominal General gastrointestinal: soft, non-tender, non-distended, normal bowel sounds - Integumentary Integumentary: Present: warm, dry - Psychiatric Psychiatric: other (sedated) - Allied Health Allied health notes reviewed: nursing, RT HEART Score - HEART Score Risk factors: 1-2 risk factors Troponin: < normal limit - Critical Actions Critical Actions: 0-3 pts:0.9-1.7%risk of adverse cardiac event.Candidate for discharge Results - Labs CBC & Chem 7: 02/26/21 05:48 02/26/21 05:48 Labs: Laboratory Last Values WBC 11.4 K/mm3 (4.5-11.0) H 02/26/21 05:48 RBC 2.40 M/mm3 (3.65-5.03) L 02/26/21 05:48 Hgb 7.5 gm/dl (11.8-15.2) L 02/26/21 05:48 Hct 23.2 % (35.5-45.6) L 02/26/21 05:48 MCV 97 fl (84-94) H 02/26/21 05:48 MCH 31 pg (28-32) 02/26/21 05:48 MCHC 32 % (32-34) 02/26/21 05:48 RDW 17.4 % (13.2-15.2) H 02/26/21 05:48 Plt Count 351 K/mm3 (140-440) 02/26/21 05:48 Lymph % (Auto) 11.0 % (13.4-35.0) L 02/15/21 05:00 Mason % (Auto) 4.2 % (0.0-7.3) 02/15/21 05:00 Eos % (Auto) 1.2 % (0.0-4.3) 02/15/21 05:00 Baso % (Auto) 0.6 % (0.0-1.8) 02/15/21 05:00 Lymph # (Auto) 1.1 K/mm3 (1.2-5.4) L 02/15/21 05:00 Mason # (Auto) 0.4 K/mm3 (0.0-0.8) 02/15/21 05:00 Eos # (Auto) 0.1 K/mm3 (0.0-0.4) 02/15/21 05:00 Baso # (Auto) 0.1 K/mm3 (0.0-0.1) 02/15/21 05:00 Add Manual Diff Complete 02/24/21 04:25 Total Counted 100 02/24/21 04:25 Seg Neutrophils % 83.0 % (40.0-70.0) H 02/15/21 05:00 Seg Neuts % (Manual) 82.0 % (40.0-70.0) H 02/24/21 04:25 Band Neutrophils % 2.0 % 02/16/21 Unknown Lymphocytes % (Manual) 3.0 % (13.4-35.0) L 02/24/21 04:25 Reactive Lymphs % (Man) 1.0 % 01/27/21 05:29 Monocytes % (Manual) 11.0 % (0.0-7.3) H 02/24/21 04:25 Eosinophils % (Manual) 1.0 % (0.0-4.3) 04/27/21 04:25 Basophils % (Manual) 1.0 % (0.0-1.8) 02/24/21 04:25 Metamyelocytes % 2.0 % 02/24/21 04:25 Nucleated RBC % Not Reportable 02/24/21 04:25 Seg Neutrophils # 8.6 K/mm3 (1.8-7.7) H 02/15/21 05:00 Seg Neutrophils # Man 9.4 K/mm3 (1.8-7.7) H 02/24/21 04:25 Band Neutrophils # 0.0 K/mm3 02/24/21 04:25 Lymphocytes # (Manual) 0.3 K/mm3 (1.2-5.4) L 02/24/21 04:25 Abs React Lymphs (Man) 0.0 K/mm3 02/24/21 04:25 Monocytes # (Manual) 1.3 K/mm3 (0.0-0.8) H 02/24/21 04:25 Eosinophils # (Manual) 0.1 K/mm3 (0.0-0.4) 02/24/21 04:25 Basophils # (Manual) 0.1 K/mm3 (0.0-0.1) 02/24/21 04:25 Metamyelocytes # 0.2 K/mm3 02/24/21 04:25 Myelocytes # 0.0 K/mm3 02/24/21 04:25 Promyelocytes # 0.0 K/mm3 02/24/21 04:25 Blast Cells # 0.0 K/mm3 02/24/21 04:25 WBC Morphology Not Reportable 02/24/21 04:25 Hypersegmented Neuts Not Reportable 02/24/21 04:25 Hyposegmented Neuts Not Reportable 02/24/21 04:25 Hypogranular Neuts Not Reportable 02/24/21 04:25 Smudge Cells Not Reportable 02/24/21 04:25 Toxic Granulation Not Reportable 02/24/21 04:25 Toxic Vacuolation Not Reportable 02/24/21 04:25 Dohle Bodies Not Reportable 02/24/21 04:25 Pelger-Huet Anomaly Not Reportable 02/24/21 04:25 Fátima Rods Not Reportable 02/24/21 04:25 Platelet Estimate Consistent w auto 02/24/21 04:25 Clumped Platelets Not Reportable 02/24/21 04:25 Plt Clumps, EDTA Not Reportable 02/24/21 04:25 Large Platelets Not Reportable 02/24/21 04:25 Giant Platelets Not Reportable 02/24/21 04:25 Platelet Satelliting Not Reportable 02/24/21 04:25 Plt Morphology Comment Not Reportable 02/24/21 04:25 RBC Morphology Not Reportable 02/24/21 04:25 Dimorphic RBCs Not Reportable 02/24/21 04:25 Polychromasia Few 02/24/21 04:25 Hypochromasia Not Reportable 02/24/21 04:25 Poikilocytosis Not Reportable 02/24/21 04:25 Anisocytosis 1+ 02/24/21 04:25 Microcytosis Not Reportable 02/24/21 04:25 Macrocytosis Not Reportable 02/24/21 04:25 Spherocytes Not Reportable 02/24/21 04:25 Pappenheimer Bodies Not Reportable 02/24/21 04:25 Sickle Cells Not Reportable 02/24/21 04:25 Target Cells Not Reportable 02/24/21 04:25 Tear Drop Cells Not Reportable 02/24/21 04:25 Ovalocytes Not Reportable 02/24/21 04:25 Helmet Cells Not Reportable 02/24/21 04:25 [place] Bodies Not Reportable 02/24/21 04:25 [place] Rings Not Reportable 02/24/21 04:25 [place] Cells Not Reportable 02/24/21 04:25 Bite Cells Not Reportable 02/24/21 04:25 Crenated Cell Not Reportable 02/24/21 04:25 Elliptocytes Not Reportable 02/24/21 04:25 Acanthocytes (Spur) Not Reportable 02/24/21 04:25 Rouleaux Not Reportable 02/24/21 04:25 Hemoglobin C Crystals Not Reportable 02/24/21 04:25 Schistocytes Not Reportable 02/24/21 04:25 Malaria parasites Not Reportable 02/24/21 04:25 [place] Bodies Not Reportable 02/24/21 04:25 Hem Pathologist Commnt No 02/24/21 04:25 PT 14.9 Sec. (12.2-14.9) 02/11/21 08:27 INR 1.17 (0.87-1.13) H 02/11/21 08:27 D-Dimer 6536.84 ng/mlDDU (0-234) H 02/25/21 09:03 ABG pH 7.316 (7.320-7.450) L 02/27/21 04:00 POC ABG pCO2 49.0 mmHg (32.0-48.0) H 02/27/21 04:00 ABG pCO2 62.7 mm Hg 02/23/21 04:00 POC ABG pO2 111.2 mmHg (83-108) H 02/27/21 04:00 ABG pO2 119.4 mm Hg (80.0-90.0) H 02/23/21 04:00 POC ABG HCO3 24.5 02/27/21 04:00 ABG HCO3 26.6 mmol/L (20.0-26.0) H 02/23/21 04:00 ABG O2 Saturation 98.1 (0-100) 02/27/21 04:00 ABG O2 Content 12.0 (0.0-44) 02/23/21 04:00 POC ABG Base Excess -1.7 02/27/21 04:00 ABG Base Excess -1.2 mmol/L (-2.0-3.0) 02/23/21 04:00 ABG Hemoglobin 7.7 (12.0-17.5) L 02/27/21 04:00 ABG Oxyhemoglobin 96.4 (94-98) 02/27/21 04:00 ABG Carboxyhemoglobin 1.8 % (0.0-5.0) 02/23/21 04:00 ABG Methemoglobin 0.3 (0.0-1.5) 02/27/21 04:00 ABG Sodium 135.0 mmol/L (136.0-145.0) L 02/27/21 04:00 ABG Potassium 3.9 mmol/L (3.40-4.50) 02/27/21 04:00 ABG Chloride 100.0 mmol/L (98-107) 02/27/21 04:00 ABG Glucose 113 mg/dL (65-95) H 02/27/21 04:00 Oxyhemoglobin 95.4 % (95.0-99.0) 02/23/21 04:00 Carboxyhemoglobin 1.4 (0.5-1.5) 02/27/21 04:00 FiO2 70 % 02/23/21 04:00 FiO2 % 70.0 02/27/21 04:00 Sodium 137 mmol/L (137-145) 02/26/21 05:48 Potassium 4.3 mmol/L (3.6-5.0) 02/26/21 05:48 Chloride 99.4 mmol/L (98-107) 02/26/21 05:48 Carbon Dioxide 27 mmol/L (22-30) 02/26/21 05:48 Anion Gap 15 mmol/L 02/26/21 05:48 BUN 72 mg/dL (9-20) H 02/26/21 05:48 Creatinine 4.5 mg/dL (0.8-1.3) H 02/26/21 05:48 Estimated GFR 16 ml/min 02/26/21 05:48 BUN/Creatinine Ratio 16 % 02/26/21 05:48 Glucose 112 mg/dL (75-100) H 02/26/21 05:48 POC Glucose 112 mg/dL (70-105) H 02/27/21 05:04 Hemoglobin A1c 6.3 % (4-6) H 02/02/21 16:00 Lactic Acid 1.90 mmol/L (0.7-2.0) 01/24/21 14:38 Calcium 7.7 mg/dL (8.4-10.2) L 02/26/21 05:48 Phosphorus 7.90 mg/dL (2.5-4.5) H 02/21/21 16:35 Magnesium 2.60 mg/dL (1.7-2.3) H 02/21/21 16:35 Ferritin 867.8 ng/mL (30.0-300.0) H 02/26/21 05:48 Total Bilirubin 1.50 mg/dL (0.1-1.2) H 01/26/21 05:47 AST 37 units/L (5-40) 01/26/21 05:47 ALT 29 units/L (7-56) 01/26/21 05:47 Alkaline Phosphatase 70 units/L (35-129) 01/26/21 05:47 Lactate Dehydrogenase 345 units/L (91-180) H 02/19/21 05:45 C-Reactive Protein 5.90 mg/dL (0.00-1.30) H 02/26/21 05:48 Total Protein 7.2 g/dL (6.3-8.2) 01/26/21 05:47 Albumin 2.2 g/dL (3.9-5) L 01/26/21 05:47 Albumin/Globulin Ratio 0.4 % 01/26/21 05:47 Triglycerides 195 mg/dL (2-149) H 02/19/21 05:45 Procalcitonin 18.94 ng/mL (<0.15) 02/16/21 17:09 Arterial Blood Glucose 113 mg/dL (65-95) H 02/27/21 04:00 Arterial Blood Ionized Calcium 4.4 mg/dL (4.6-5.3) L 02/27/21 04:00 Urine Color Nehal (Yellow) 01/22/21 22:39 Urine Turbidity Cloudy (Clear) 01/22/21 22:39 Urine pH 5.0 (5.0-7.0) 01/22/21 22:39 Ur Specific Cl[place] 1.017 (1.003-1.030) 01/22/21 22:39 Urine Protein 100 mg/dl mg/dL (Negative) 01/22/21 22:39 Urine Glucose (UA) Neg mg/dL (Negative) 01/22/21 22:39 Urine Ketones Neg mg/dL (Negative) 01/22/21 22:39 Urine Blood Mod (Negative) 01/22/21 22:39 Urine Nitrite Neg (Negative) 01/22/21 22:39 Urine Bilirubin Neg (Negative) 01/22/21 22:39 Urine Urobilinogen 2.0 mg/dL (<2.0) 01/22/21 22:39 Ur Leukocyte Esterase Mod (Negative) 01/22/21 22:39 Urine WBC (Auto) < 1.0 /HPF (0.0-6.0) 01/22/21 22:39 Urine RBC (Auto) < 1.0 /HPF (0.0-6.0) 01/22/21 22:39 U Epithel Cells (Auto) < 1.0 /HPF (0-13.0) 01/22/21 22:39 Urine Osmolality 416 Mosm/kg 04/02/21 12:15 Urine Total Volume 2300 ml 01/30/21 12:00 Urine Creatinine 53.0 mg/dL (0.1-20.0) H 01/30/21 12:00 Ur Creatinine 24 Hour 1.2 (0.8-2.8) 01/30/21 12:00 Urine Sodium 28 mmol/L 01/22/21 22:39 Nasal Screen MRSA (PCR) Negative (Negative) 02/02/21 13:20 Random Vancomycin 13.7 ug/mL (0-40.0) 02/07/21 10:40 Coronavirus (PCR) Positive (Negative) A 02/18/21 10:00 Hepatitis A IgM Ab Non-reactive (NonReactive) 02/03/21 Unknown Hep Bs Antigen Non-reactive (Negative) 02/03/21 Unknown Hep B Core IgM Ab Non-reactive (NonReactive) 02/03/21 Unknown Hepatitis C Antibody Non-reactive (NonReactive) 02/03/21 Unknown Blood Type B POSITIVE 02/17/21 07:45 Antibody Screen Negative 02/17/21 07:45 Crossmatch See Detail 02/17/21 07:45 Black/IV: Voiding Method Incontinent Active Medications - Current Medications Current Medications: Generic Name Dose Route Start Last Admin Trade Name Freq PRN Reason Stop Dose Admin Acetaminophen 650 mg 01/24/21 12:58 02/25/21 13:31 Acetaminophen 325 Mg/10.15 Ml Oral Liqd Unit Dose FEEDTUBE 650 mg Q6H PRN Administration Pain, Mild (1-3) Lipase/Protease/Amylase 1 each 01/26/21 14:25 Lipase 10,500/Protease 25,000/Amylase 43,750 (Units) Dr Cap FEEDTUBE PRN PRN For Clogged Feeding Tube Dextrose 50 ml 01/27/21 07:24 Dextrose 50% In Water (25gm) 50 Ml Syringe IV Q30MIN PRN Hypoglycemia Protocol Fentanyl 50 mcg 01/22/21 22:39 02/25/21 10:25 Fentanyl 100 Mcg/2 Ml Inj IV 50 mcg Q10MIN PRN Administration ANALGESIA Heparin Sodium (Porcine) 2,000 unit 02/11/21 09:38 02/21/21 21:25 Heparin 10,000 Units/10 Ml Vial IV 2,000 unit SAGRARIO PRN Administration hemodialysis Heparin Sodium (Porcine) 5,000 unit 02/19/21 14:00 02/27/21 07:00 Heparin 5,000 Unit/1 Ml Vial SUB-Q 5,000 unit Q8HR CECE Administration Fentanyl Citrate 2,000 mcg in 100 mls @ 6.124 mls/hr 01/22/21 23:00 02/27/21 07:01 Fentanyl Drip Premix IV 2 mcg/kg/hr TITR CECE 12.247 mls/hr Administration Protocol 1 MCG/KG/HR Propofol 1,000 mg in 100 mls @ 3.674 mls/hr 01/22/21 23:45 02/21/21 08:30 Diprivan 10 Mg/Ml IV 0 mcg/kg/min TITR CECE 0 mls/hr Titration Protocol 5 MCG/KG/MIN Norepinephrine 4 mg in 250 mls @ 7.5 mls/hr 01/28/21 14:00 02/22/21 18:27 Levophed Drip 4 Mg/Ns 250 Ml IV 0 mcg/min TITR CECE 0 mls/hr Titration Protocol 2 MCG/MIN Dexmedetomidine HCl 1,000 mcg/ 260 mls @ 6.368 mls/hr 01/30/21 20:00 02/25/21 14:35 Sodium Chloride IV 0.1 mcg/kg/hr TITRATE CECE 3.2 mls/hr Titration Protocol 0.2 MCG/KG/HR Sodium Chloride 100 mls @ 999 mls/hr 02/27/21 11:00 Nacl 0.9% IV SAGRARIO PRN Hypotension Lansoprazole 30 mg 02/18/21 10:00 02/27/21 09:56 Lansoprazole 30 Mg Solutab FEEDTUBE 30 mg QDAY CECE Administration Senna/Docusate Sodium 1 tab 02/25/21 10:00 02/27/21 09:56 Sennosides/Docusate Sodium 8.6/50 Mg Tab PO 1 tab BID CECE Administration Simple Syrup 15 ml 01/26/21 14:25 02/21/21 21:24 Simple Syrup 15 Ml FEEDTUBE 15 ml PRN PRN Administration Hypoglycemia Simple Syrup 30 ml 01/26/21 14:25 Simple Syrup 15 Ml FEEDTUBE PRN PRN Hypoglycemia Sodium Bicarbonate 325 mg 01/26/21 14:25 Sodium Bicarbonate 325 Mg Tab FEEDTUBE PRN PRN For Clogged Feeding Tube Nutrition/Malnutrition Assess - Dietary Evaluation Nutrition/Malnutrition Findings: Nutrition Notes Start: 01/26/21 13:59 Freq: Status: Active Protocol: Document 02/26/21 12:19 CW (Rec: 02/26/21 12:45 CW [id number]) Nutrition Notes Initial or Follow up Reassessment Current Diagnosis Acute Kidney Injury,Diabetes, Sepsis,Hypertension, Respiratory Failure, Hyperlipidemia Other Pertinent Diagnosis on HD, COVID-19 (+), bilat pneu Current Diet TF - Nepro at 46 ml/hr Labs/Tests BUN 72 Cr 4.5 Pertinent Medications [place] Height 5 ft 8 in Weight 99 kg [place] Body Weight (kg) 70.00 BMI 33.2 Weight change and time frame Some wt change likely r/t to HD. Weight Status Obese Subjective/Other Information TF continue to run at goal and is moderately tolerated. Pt remains on mechanical vent. Burn Absent Trauma Absent GI Symptoms Constipation Difficulty In Swallowing Skin Integrity/Comment pressure ulcer to lips Current % PO Negligible Minimum of two criteria No Fluid Accumulation Moderate to Severe (severe) #2 Nutrition Diagnosis Increased nutrient needs ( specify in comment below) Comments: protein Diagnosis Progress(for reassessment Continues documentation) #1 Nutrition Diagnosis Inadequate oral intake Diagnosis Progress(for reassessment Continues documentation) Is patient on ventilator? Yes Is Patient Ambulatory and/or Out of Bed No REE-([facility]-confined to bed) 2122.164 Kcal/Kg value to use for calculation 18 Approximate Energy Requirements Using 1782 kcal/Kg Calculation Used for Recommendations Kcal/kg Additional Notes Pro needs >1.2g/kg adjBW: > 115g/day for HD needs Fluid needs 500+ total output or per MD Nutrition Intervention Change Diet Order: Continue TF Nutrition Support: Nepro at 46 ml/hr with a free water flush of 200 ml q4h. Kcal 1,987 Protein (gm) 89 Fluid (mL) 803 Goal #1 TF tolerance Goal #2 TF to meet at least 75% energy and pro needs Anticipated Discharge Needs: unable to determine at this time Follow-Up By: 03/04/21 Additional Comments F/U for TF tolerance
--- NOTE | 2021-02-27 12:50 | Progress Note ---
Assessment and Plan Acute Hypoxic respiratory failure COVID-19 PNA Severe sepsis with septic shock Acute kidney injury secondary to ATN Hyperkalemia Hypernatremia DM2 on insulin Anemia Plan: labs are pending, remains anuric, will check bladder scan HD today for clearance and volume removal Initiated on HD on 02/03/21 S/P Right IJ Trialysis dialysis catheter placement by Dr Reddy Strict I&O's monitoring Renally dose medications Assess dialysis needs daily Monitor for renal recovery Subjective Date of service: 02/27/21 Principal diagnosis: DEISI Interval history: sedated, on the vent Objective - Vital Signs Vital signs: Vital Signs - 12hr 02/27/21 02/27/21 02/27/21 01:00 01:15 01:30 Temperature Pulse Rate 102 H 105 H 105 H Pulse Rate [ From Monitor] Respiratory 34 H 35 H 37 H Rate Blood Pressure 125/71 128/71 129/72 O2 Sat by Pulse 93 93 93 Oximetry O2 Sat by Pulse Oximetry [ Anterior Bilateral Throughout] 02/27/21 02/27/21 02/27/21 01:45 02:00 02:15 Temperature Pulse Rate 106 H 106 H 106 H Pulse Rate [ From Monitor] Respiratory 35 H 31 H 35 H Rate Blood Pressure 128/75 126/73 129/74 O2 Sat by Pulse 93 93 94 Oximetry O2 Sat by Pulse Oximetry [ Anterior Bilateral Throughout] 02/27/21 02/27/21 02/27/21 02:30 02:45 03:00 Temperature Pulse Rate 106 H 106 H 106 H Pulse Rate [ From Monitor] Respiratory 28 H 36 H 36 H Rate Blood Pressure 130/74 122/69 125/68 O2 Sat by Pulse 93 93 93 Oximetry O2 Sat by Pulse Oximetry [ Anterior Bilateral Throughout] 02/27/21 02/27/21 02/27/21 03:15 03:30 03:32 Temperature Pulse Rate 106 H 104 H 106 H Pulse Rate [ From Monitor] Respiratory 35 H 35 H Rate Blood Pressure 127/75 120/66 120/66 O2 Sat by Pulse 94 96 Oximetry O2 Sat by Pulse Oximetry [ Anterior Bilateral Throughout] 02/27/21 02/27/21 02/27/21 03:45 03:55 04:00 Temperature 99.1 F Pulse Rate 105 H 103 H Pulse Rate [ 103 H From Monitor] Respiratory 28 H 34 H Rate Blood Pressure 126/74 116/67 O2 Sat by Pulse 94 94 Oximetry O2 Sat by Pulse Oximetry [ Anterior Bilateral Throughout] 02/27/21 02/27/21 02/27/21 04:15 04:30 04:45 Temperature Pulse Rate 103 H 104 H 103 H Pulse Rate [ From Monitor] Respiratory 34 H 34 H 34 H Rate Blood Pressure 115/70 119/67 112/63 O2 Sat by Pulse 94 93 94 Oximetry O2 Sat by Pulse Oximetry [ Anterior Bilateral Throughout] 02/27/21 02/27/21 02/27/21 05:00 05:15 05:30 Temperature Pulse Rate 102 H 103 H 103 H Pulse Rate [ From Monitor] Respiratory 34 H 31 H 35 H Rate Blood Pressure 112/62 118/67 116/61 O2 Sat by Pulse 94 94 94 Oximetry O2 Sat by Pulse Oximetry [ Anterior Bilateral Throughout] 02/27/21 02/27/21 02/27/21 05:45 06:00 06:15 Temperature Pulse Rate 101 H 102 H 103 H Pulse Rate [ From Monitor] Respiratory 34 H 35 H 31 H Rate Blood Pressure 118/69 126/74 124/67 O2 Sat by Pulse 95 94 94 Oximetry O2 Sat by Pulse Oximetry [ Anterior Bilateral Throughout] 02/27/21 02/27/21 02/27/21 06:30 06:45 07:00 Temperature Pulse Rate 102 H 102 H 107 H Pulse Rate [ From Monitor] Respiratory 34 H 19 25 H Rate Blood Pressure 116/63 116/63 108/58 O2 Sat by Pulse 94 94 91 Oximetry O2 Sat by Pulse Oximetry [ Anterior Bilateral Throughout] 02/27/21 02/27/21 02/27/21 07:15 07:30 07:45 Temperature Pulse Rate 108 H 108 H 107 H Pulse Rate [ From Monitor] Respiratory 31 H 31 H 26 H Rate Blood Pressure 110/65 115/70 122/69 O2 Sat by Pulse 92 94 93 Oximetry O2 Sat by Pulse Oximetry [ Anterior Bilateral Throughout] 02/27/21 02/27/21 02/27/21 07:52 08:00 08:15 Temperature 98.2 F Pulse Rate 106 H 105 H 104 H Pulse Rate [ 105 H From Monitor] Respiratory 25 H 21 Rate Blood Pressure 122/69 118/68 124/71 O2 Sat by Pulse 97 94 Oximetry O2 Sat by Pulse Oximetry [ Anterior Bilateral Throughout] 02/27/21 02/27/21 02/27/21 08:30 08:45 09:00 Temperature Pulse Rate 104 H 106 H 107 H Pulse Rate [ From Monitor] Respiratory 17 19 22 Rate Blood Pressure 129/72 136/78 138/78 O2 Sat by Pulse 94 92 93 Oximetry O2 Sat by Pulse Oximetry [ Anterior Bilateral Throughout] 02/27/21 02/27/21 02/27/21 09:15 09:30 09:45 Temperature Pulse Rate 107 H 106 H 105 H Pulse Rate [ From Monitor] Respiratory 17 18 17 Rate Blood Pressure 132/78 125/72 120/72 O2 Sat by Pulse 92 93 94 Oximetry O2 Sat by Pulse Oximetry [ Anterior Bilateral Throughout] 02/27/21 02/27/21 02/27/21 10:00 10:15 10:30 Temperature Pulse Rate 105 H 104 H 104 H Pulse Rate [ From Monitor] Respiratory 17 17 17 Rate Blood Pressure 121/74 122/69 123/70 O2 Sat by Pulse 94 93 Oximetry O2 Sat by Pulse Oximetry [ Anterior Bilateral Throughout] 02/27/21 02/27/21 02/27/21 10:45 11:00 11:15 Temperature Pulse Rate 104 H 104 H 104 H Pulse Rate [ From Monitor] Respiratory 17 16 16 Rate Blood Pressure 129/73 129/71 126/74 O2 Sat by Pulse 95 95 Oximetry O2 Sat by Pulse Oximetry [ Anterior Bilateral Throughout] 02/27/21 02/27/21 02/27/21 11:30 11:45 12:00 Temperature 98.2 F Pulse Rate 105 H 103 H 103 H Pulse Rate [ From Monitor] Respiratory 16 14 Rate Blood Pressure 130/73 128/68 128/86 O2 Sat by Pulse Oximetry O2 Sat by Pulse 97 Oximetry [ Anterior Bilateral Throughout] 02/27/21 02/27/21 02/27/21 12:10 12:15 12:30 Temperature Pulse Rate 105 H 104 H 105 H Pulse Rate [ From Monitor] Respiratory Rate Blood Pressure 128/68 131/76 136/78 O2 Sat by Pulse 96 Oximetry O2 Sat by Pulse Oximetry [ Anterior Bilateral Throughout] 02/27/21 12:45 Temperature Pulse Rate 102 H Pulse Rate [ From Monitor] Respiratory Rate Blood Pressure 127/76 O2 Sat by Pulse Oximetry O2 Sat by Pulse Oximetry [ Anterior Bilateral Throughout] - Lab 02/26/21 05:48 02/26/21 05:48 Most recent lab results ABG pH 7.316 (7.320-7.450) L 02/27/21 04:00 ABG pCO2 62.7 mm Hg 02/23/21 04:00 ABG pO2 119.4 mm Hg (80.0-90.0) H 02/23/21 04:00 ABG HCO3 26.6 mmol/L (20.0-26.0) H 02/23/21 04:00 ABG O2 Saturation 98.1 (0-100) 02/27/21 04:00 Calcium 7.7 mg/dL (8.4-10.2) L 02/26/21 05:48 Phosphorus 7.90 mg/dL (2.5-4.5) H 02/21/21 16:35 Magnesium 2.60 mg/dL (1.7-2.3) H 02/21/21 16:35 Urine Creatinine 53.0 mg/dL (0.1-20.0) H 01/30/21 12:00 Urine Sodium 28 mmol/L 01/22/21 22:39 Medications & Allergies - Medications Allergies/Adverse Reactions: Allergies No Known Allergies Allergy (Unverified 03/12/20 13:41) Home Medications: Home Medications Medication Instructions Recorded Confirmed Last Taken Type Insulin NPH/Regular [Novolin 70/30] 18 unit SUB-Q TIDAC #1 vial 03/12/20 Unknown Rx Syringe-Needle,Insulin,0.5 ml 1 box MC TID #1 box 03/12/20 Unknown Rx [Insulin Syringe/Needle 0.5 ML] Active Medications: Generic Name Dose Route Start Last Admin Trade Name Freq PRN Reason Stop Dose Admin Acetaminophen 650 mg 01/24/21 12:58 02/25/21 13:31 Acetaminophen 325 Mg/10.15 Ml Oral Liqd Unit Dose FEEDTUBE 650 mg Q6H PRN Administration Pain, Mild (1-3) Lipase/Protease/Amylase 1 each 01/26/21 14:25 Lipase 10,500/Protease 25,000/Amylase 43,750 (Units) Dr Claudio FEEDTUBE PRN PRN For Clogged Feeding Tube Dextrose 50 ml 01/27/21 07:24 Dextrose 50% In Water (25gm) 50 Ml Syringe IV Q30MIN PRN Hypoglycemia Protocol Fentanyl 50 mcg 01/22/21 22:39 02/25/21 10:25 Fentanyl 100 Mcg/2 Ml Inj IV 50 mcg Q10MIN PRN Administration ANALGESIA Heparin Sodium (Porcine) 2,000 unit 02/11/21 09:38 02/21/21 21:25 Heparin 10,000 Units/10 Ml Vial IV 2,000 unit SAGRARIO PRN Administration hemodialysis Heparin Sodium (Porcine) 5,000 unit 02/19/21 14:00 02/27/21 07:00 Heparin 5,000 Unit/1 Ml Vial SUB-Q 5,000 unit Q8HR CECE Administration Fentanyl Citrate 2,000 mcg in 100 mls @ 6.124 mls/hr 01/22/21 23:00 02/27/21 07:01 Fentanyl Drip Premix IV 2 mcg/kg/hr TITR CECE 12.247 mls/hr Administration Protocol 1 MCG/KG/HR Propofol 1,000 mg in 100 mls @ 3.674 mls/hr 01/22/21 23:45 02/21/21 08:30 Diprivan 10 Mg/Ml IV 0 mcg/kg/min TITR CECE 0 mls/hr Titration Protocol 5 MCG/KG/MIN Norepinephrine 4 mg in 250 mls @ 7.5 mls/hr 01/28/21 14:00 02/22/21 18:27 Levophed Drip 4 Mg/Ns 250 Ml IV 0 mcg/min TITR CECE 0 mls/hr Titration Protocol 2 MCG/MIN Dexmedetomidine HCl 1,000 mcg/ 260 mls @ 6.368 mls/hr 01/30/21 20:00 02/25/21 14:35 Sodium Chloride IV 0.1 mcg/kg/hr TITRATE CECE 3.2 mls/hr Titration Protocol 0.2 MCG/KG/HR Sodium Chloride 100 mls @ 999 mls/hr 02/27/21 11:00 Nacl 0.9% IV SAGRARIO PRN Hypotension Lansoprazole 30 mg 02/18/21 10:00 02/27/21 09:56 Lansoprazole 30 Mg Solutab FEEDTUBE 30 mg QDAY CECE Administration Senna/Docusate Sodium 1 tab 02/25/21 10:00 02/27/21 09:56 Sennosides/Docusate Sodium 8.6/50 Mg Tab PO 1 tab BID CECE Administration Simple Syrup 15 ml 01/26/21 14:25 02/21/21 21:24 Simple Syrup 15 Ml FEEDTUBE 15 ml PRN PRN Administration Hypoglycemia Simple Syrup 30 ml 01/26/21 14:25 Simple Syrup 15 Ml FEEDTUBE PRN PRN Hypoglycemia Sodium Bicarbonate 325 mg 01/26/21 14:25 Sodium Bicarbonate 325 Mg Tab FEEDTUBE PRN PRN For Clogged Feeding Tube
[2021-02-27] MEDS: EPOETIN ALFA-EPBX 20,000 UNIT/1 ML VIAL IV PRN (13:39)
--- NOTE | 2021-02-27 14:08 | Progress Note ---
Assessment and Plan Imp: 1. Covid-19 2. Viral pneumonia 3. ARDS 4. Acute respiratory failure, hypoxia 5. Morbid obesity 6. DEISI 7. Anasarca Rec: 1. Cont. current management; wean FiO2 then PEEP; will need trach once ventilator settings allow 2. TFs, GI PPx, SCDs, SubQ heparin 3. HD per renal 4. F/u Neurology recs 5. Transfuse if H/H less than 7.0/21.0 6. Cont. on ACPC; okay with most recent ABG (permissive hypercapnea) 7. Prognosis poor; CCt 31 minutes Subjective Date of service: 02/27/21 Principal diagnosis: DEISI Interval history: Orally intubated arterial blood gases have shown significant improvement. Remain on pressure control ventilation with PEEP of 10 at 70% FiO2 Objective Vital Signs - 12hr 02/27/21 02/27/21 02/27/21 02:15 02:30 02:45 Temperature Pulse Rate 106 H 106 H 106 H Pulse Rate [ From Monitor] Respiratory 35 H 28 H 36 H Rate Blood Pressure 129/74 130/74 122/69 O2 Sat by Pulse 94 93 93 Oximetry O2 Sat by Pulse Oximetry [ Anterior Bilateral Throughout] 02/27/21 02/27/21 02/27/21 03:00 03:15 03:30 Temperature Pulse Rate 106 H 106 H 104 H Pulse Rate [ From Monitor] Respiratory 36 H 35 H 35 H Rate Blood Pressure 125/68 127/75 120/66 O2 Sat by Pulse 93 94 Oximetry O2 Sat by Pulse Oximetry [ Anterior Bilateral Throughout] 02/27/21 02/27/21 02/27/21 03:32 03:45 03:55 Temperature 99.1 F Pulse Rate 106 H 105 H Pulse Rate [ From Monitor] Respiratory 28 H Rate Blood Pressure 120/66 126/74 O2 Sat by Pulse 96 94 Oximetry O2 Sat by Pulse Oximetry [ Anterior Bilateral Throughout] 02/27/21 02/27/21 02/27/21 04:00 04:15 04:30 Temperature Pulse Rate 103 H 103 H 104 H Pulse Rate [ 103 H From Monitor] Respiratory 34 H 34 H 34 H Rate Blood Pressure 116/67 115/70 119/67 O2 Sat by Pulse 94 94 93 Oximetry O2 Sat by Pulse Oximetry [ Anterior Bilateral Throughout] 02/27/21 02/27/21 02/27/21 04:45 05:00 05:15 Temperature Pulse Rate 103 H 102 H 103 H Pulse Rate [ From Monitor] Respiratory 34 H 34 H 31 H Rate Blood Pressure 112/63 112/62 118/67 O2 Sat by Pulse 94 94 94 Oximetry O2 Sat by Pulse Oximetry [ Anterior Bilateral Throughout] 02/27/21 02/27/21 02/27/21 05:30 05:45 06:00 Temperature Pulse Rate 103 H 101 H 102 H Pulse Rate [ From Monitor] Respiratory 35 H 34 H 35 H Rate Blood Pressure 116/61 118/69 126/74 O2 Sat by Pulse 94 95 94 Oximetry O2 Sat by Pulse Oximetry [ Anterior Bilateral Throughout] 02/27/21 02/27/21 02/27/21 06:15 06:30 06:45 Temperature Pulse Rate 103 H 102 H 102 H Pulse Rate [ From Monitor] Respiratory 31 H 34 H 19 Rate Blood Pressure 124/67 116/63 116/63 O2 Sat by Pulse 94 94 94 Oximetry O2 Sat by Pulse Oximetry [ Anterior Bilateral Throughout] 02/27/21 02/27/21 02/27/21 07:00 07:15 07:30 Temperature Pulse Rate 107 H 108 H 108 H Pulse Rate [ From Monitor] Respiratory 25 H 31 H 31 H Rate Blood Pressure 108/58 110/65 115/70 O2 Sat by Pulse 91 92 94 Oximetry O2 Sat by Pulse Oximetry [ Anterior Bilateral Throughout] 02/27/21 02/27/21 02/27/21 07:45 07:52 08:00 Temperature 98.2 F Pulse Rate 107 H 106 H 105 H Pulse Rate [ 105 H From Monitor] Respiratory 26 H 25 H Rate Blood Pressure 122/69 122/69 118/68 O2 Sat by Pulse 93 97 94 Oximetry O2 Sat by Pulse Oximetry [ Anterior Bilateral Throughout] 02/27/21 02/27/21 02/27/21 08:15 08:30 08:45 Temperature Pulse Rate 104 H 104 H 106 H Pulse Rate [ From Monitor] Respiratory 21 17 19 Rate Blood Pressure 124/71 129/72 136/78 O2 Sat by Pulse 94 92 Oximetry O2 Sat by Pulse Oximetry [ Anterior Bilateral Throughout] 02/27/21 02/27/21 02/27/21 09:00 09:15 09:30 Temperature Pulse Rate 107 H 107 H 106 H Pulse Rate [ From Monitor] Respiratory 22 17 18 Rate Blood Pressure 138/78 132/78 125/72 O2 Sat by Pulse 93 92 93 Oximetry O2 Sat by Pulse Oximetry [ Anterior Bilateral Throughout] 02/27/21 02/27/21 02/27/21 09:45 10:00 10:15 Temperature Pulse Rate 105 H 105 H 104 H Pulse Rate [ From Monitor] Respiratory 17 17 17 Rate Blood Pressure 120/72 121/74 122/69 O2 Sat by Pulse 94 94 93 Oximetry O2 Sat by Pulse Oximetry [ Anterior Bilateral Throughout] 02/27/21 02/27/21 02/27/21 10:30 10:45 11:00 Temperature Pulse Rate 104 H 104 H 104 H Pulse Rate [ From Monitor] Respiratory 17 17 16 Rate Blood Pressure 123/70 129/73 129/71 O2 Sat by Pulse 95 Oximetry O2 Sat by Pulse Oximetry [ Anterior Bilateral Throughout] 02/27/21 02/27/21 02/27/21 11:15 11:30 11:45 Temperature 98.2 F Pulse Rate 104 H 105 H 103 H Pulse Rate [ From Monitor] Respiratory 16 16 14 Rate Blood Pressure 126/74 130/73 128/68 O2 Sat by Pulse 95 Oximetry O2 Sat by Pulse 97 Oximetry [ Anterior Bilateral Throughout] 02/27/21 02/27/21 02/27/21 12:00 12:10 12:15 Temperature Pulse Rate 103 H 105 H 104 H Pulse Rate [ From Monitor] Respiratory Rate Blood Pressure 128/86 128/68 131/76 O2 Sat by Pulse 96 Oximetry O2 Sat by Pulse Oximetry [ Anterior Bilateral Throughout] 02/27/21 02/27/21 02/27/21 12:30 12:45 12:59 Temperature Pulse Rate 105 H 102 H 103 H Pulse Rate [ From Monitor] Respiratory Rate Blood Pressure 136/78 127/76 122/74 O2 Sat by Pulse Oximetry O2 Sat by Pulse Oximetry [ Anterior Bilateral Throughout] 02/27/21 02/27/21 02/27/21 13:15 13:30 13:45 Temperature Pulse Rate 104 H 104 H 104 H Pulse Rate [ From Monitor] Respiratory Rate Blood Pressure 112/71 121/77 127/71 O2 Sat by Pulse Oximetry O2 Sat by Pulse Oximetry [ Anterior Bilateral Throughout] Constitutional: other (sedated) Eyes: non-icteric ENT: other (orally intubated, critically ill) Neck: supple Effort: mildly labored (tachypneic) Ascultation: Bilateral: clear, other (coarse BS bilaterally) Percussion: Bilateral: not dull Cardiovascular: regular rate and rhythm (no mrg) Gastrointestinal: normoactive bowel sounds Integumentary: normal Extremities: no cyanosis, no edema, pink and warm Neurologic: unable to assess Psychiatric: other (unable to assess) CBC and BMP: 02/26/21 05:48 02/26/21 05:48 ABG, PT/INR, D-dimer: ABG ABG pH 7.316 (7.320-7.450) L 02/27/21 04:00 POC ABG pCO2 49.0 mmHg (32.0-48.0) H 02/27/21 04:00 ABG pCO2 62.7 mm Hg 02/23/21 04:00 POC ABG pO2 111.2 mmHg (83-108) H 02/27/21 04:00 ABG pO2 119.4 mm Hg (80.0-90.0) H 02/23/21 04:00 POC ABG HCO3 24.5 02/27/21 04:00 ABG O2 Saturation 98.1 (0-100) 02/27/21 04:00 PT/INR, D-dimer PT 14.9 Sec. (12.2-14.9) 02/11/21 08:27 INR 1.17 (0.87-1.13) H 02/11/21 08:27 D-Dimer 6536.84 ng/mlDDU (0-234) H 02/25/21 09:03 Abnormal lab findings: Abnormal Labs 01/22/21 01/22/21 01/22/21 22:39 22:57 22:57 WBC RBC Hgb Hct MCV MCH MCHC RDW Plt Count Lymph % (Auto) 6.6 L Lymph # (Auto) 0.5 L Seg Neutrophils % 87.6 H Seg Neuts % (Manual) Lymphocytes % (Manual) Monocytes % (Manual) Nucleated RBC % Seg Neutrophils # Seg Neutrophils # Man Lymphocytes # (Manual) Monocytes # (Manual) Eosinophils # (Manual) INR D-Dimer ABG pH POC ABG pCO2 POC ABG pO2 ABG pO2 ABG HCO3 ABG O2 Saturation ABG Base Excess ABG Hemoglobin ABG Oxyhemoglobin ABG Sodium ABG Potassium ABG Chloride ABG Glucose Oxyhemoglobin Carboxyhemoglobin Sodium 129 L Potassium 3.4 L Chloride 90.4 L Carbon Dioxide BUN 34 H Creatinine 1.5 H Glucose 146 H POC Glucose Hemoglobin A1c Lactic Acid Calcium 7.8 L Phosphorus Magnesium Ferritin Total Bilirubin AST 75 H ALT 57 H Lactate Dehydrogenase C-Reactive Protein Albumin 2.9 L Triglycerides Arterial Blood Glucose Arterial Blood Ionized Calcium Urine Creatinine 301.2 H Coronavirus (PCR) Crossmatch 01/22/21 01/22/21 01/22/21 22:57 22:57 22:57 WBC RBC Hgb Hct MCV MCH MCHC RDW Plt Count Lymph % (Auto) Lymph # (Auto) Seg Neutrophils % Seg Neuts % (Manual) Lymphocytes % (Manual) Monocytes % (Manual) Nucleated RBC % Seg Neutrophils # Seg Neutrophils # Man Lymphocytes # (Manual) Monocytes # (Manual) Eosinophils # (Manual) INR D-Dimer 1173.89 H ABG pH POC ABG pCO2 POC ABG pO2 ABG pO2 ABG HCO3 ABG O2 Saturation ABG Base Excess ABG Hemoglobin ABG Oxyhemoglobin ABG Sodium ABG Potassium ABG Chloride ABG Glucose Oxyhemoglobin Carboxyhemoglobin Sodium Potassium Chloride Carbon Dioxide BUN Creatinine Glucose 149 H POC Glucose Hemoglobin A1c Lactic Acid 2.10 H* Calcium Phosphorus Magnesium Ferritin Total Bilirubin AST ALT Lactate Dehydrogenase 685 H C-Reactive Protein 30.40 H Albumin Triglycerides Arterial Blood Glucose Arterial Blood Ionized Calcium Urine Creatinine Coronavirus (PCR) Crossmatch 01/22/21 01/23/21 01/23/21 22:57 08:41 10:01 WBC RBC Hgb Hct MCV MCH MCHC RDW Plt Count Lymph % (Auto) Lymph # (Auto) Seg Neutrophils % Seg Neuts % (Manual) Lymphocytes % (Manual) Monocytes % (Manual) Nucleated RBC % Seg Neutrophils # Seg Neutrophils # Man Lymphocytes # (Manual) Monocytes # (Manual) Eosinophils # (Manual) INR D-Dimer ABG pH POC ABG pCO2 POC ABG pO2 ABG pO2 ABG HCO3 ABG O2 Saturation ABG Base Excess ABG Hemoglobin ABG Oxyhemoglobin ABG Sodium ABG Potassium ABG Chloride ABG Glucose Oxyhemoglobin Carboxyhemoglobin Sodium 131 L Potassium Chloride 88.7 L Carbon Dioxide 18 L BUN 36 H Creatinine 1.6 H Glucose 147 H POC Glucose Hemoglobin A1c Lactic Acid Calcium 7.5 L Phosphorus Magnesium Ferritin 1207.0 H Total Bilirubin AST ALT Lactate Dehydrogenase C-Reactive Protein Albumin Triglycerides Arterial Blood Glucose Arterial Blood Ionized Calcium Urine Creatinine Coronavirus (PCR) Positive A Crossmatch 01/23/21 01/23/21 01/24/21 20:49 Unknown 00:10 WBC RBC Hgb Hct MCV MCH MCHC RDW Plt Count Lymph % (Auto) Lymph # (Auto) Seg Neutrophils % Seg Neuts % (Manual) Lymphocytes % (Manual) Monocytes % (Manual) Nucleated RBC % Seg Neutrophils # Seg Neutrophils # Man Lymphocytes # (Manual) Monocytes # (Manual) Eosinophils # (Manual) INR D-Dimer ABG pH POC ABG pCO2 POC ABG pO2 ABG pO2 165.4 H ABG HCO3 ABG O2 Saturation ABG Base Excess -2.5 L ABG Hemoglobin ABG Oxyhemoglobin ABG Sodium ABG Potassium ABG Chloride ABG Glucose Oxyhemoglobin Carboxyhemoglobin Sodium 130 L Potassium Chloride 91.0 L Carbon Dioxide 20 L BUN 52 H Creatinine 3.8 H D Glucose 150 H POC Glucose 125 H Hemoglobin A1c Lactic Acid Calcium 8.0 L Phosphorus Magnesium Ferritin Total Bilirubin AST 42 H ALT Lactate Dehydrogenase C-Reactive Protein Albumin 2.4 L Triglycerides Arterial Blood Glucose Arterial Blood Ionized Calcium Urine Creatinine Coronavirus (PCR) Crossmatch 01/24/21 01/24/21 01/24/21 05:05 05:05 05:05 WBC 14.0 H RBC Hgb Hct MCV 95 H MCH 33 H MCHC RDW Plt Count Lymph % (Auto) Lymph # (Auto) Seg Neutrophils % Seg Neuts % (Manual) 91.0 H Lymphocytes % (Manual) 4.0 L Monocytes % (Manual) Nucleated RBC % Seg Neutrophils # Seg Neutrophils # Man 12.7 H Lymphocytes # (Manual) 0.6 L Monocytes # (Manual) Eosinophils # (Manual) INR D-Dimer 6159.48 H ABG pH POC ABG pCO2 POC ABG pO2 ABG pO2 ABG HCO3 ABG O2 Saturation ABG Base Excess ABG Hemoglobin ABG Oxyhemoglobin ABG Sodium ABG Potassium ABG Chloride ABG Glucose Oxyhemoglobin Carboxyhemoglobin Sodium Potassium Chloride Carbon Dioxide BUN Creatinine Glucose POC Glucose Hemoglobin A1c Lactic Acid Calcium Phosphorus Magnesium Ferritin 1178.0 H Total Bilirubin AST ALT Lactate Dehydrogenase C-Reactive Protein Albumin Triglycerides Arterial Blood Glucose Arterial Blood Ionized Calcium Urine Creatinine Coronavirus (PCR) Crossmatch 01/24/21 01/24/21 01/24/21 05:05 05:05 05:05 WBC RBC Hgb Hct MCV MCH MCHC RDW Plt Count Lymph % (Auto) Lymph # (Auto) Seg Neutrophils % Seg Neuts % (Manual) Lymphocytes % (Manual) Monocytes % (Manual) Nucleated RBC % Seg Neutrophils # Seg Neutrophils # Man Lymphocytes # (Manual) Monocytes # (Manual) Eosinophils # (Manual) INR D-Dimer ABG pH POC ABG pCO2 POC ABG pO2 ABG pO2 ABG HCO3 ABG O2 Saturation ABG Base Excess ABG Hemoglobin ABG Oxyhemoglobin ABG Sodium ABG Potassium ABG Chloride ABG Glucose Oxyhemoglobin Carboxyhemoglobin Sodium 132 L Potassium Chloride 93.1 L Carbon Dioxide 21 L BUN 57 H Creatinine 3.7 H Glucose 133 H POC Glucose Hemoglobin A1c Lactic Acid 2.20 H* Calcium 7.7 L Phosphorus Magnesium Ferritin Total Bilirubin AST ALT Lactate Dehydrogenase 658 H C-Reactive Protein 33.20 H Albumin 2.4 L Triglycerides Arterial Blood Glucose Arterial Blood Ionized Calcium Urine Creatinine Coronavirus (PCR) Crossmatch 01/24/21 01/24/21 01/24/21 05:34 06:00 17:35 WBC RBC Hgb Hct MCV MCH MCHC RDW Plt Count Lymph % (Auto) Lymph # (Auto) Seg Neutrophils % Seg Neuts % (Manual) Lymphocytes % (Manual) Monocytes % (Manual) Nucleated RBC % Seg Neutrophils # Seg Neutrophils # Man Lymphocytes # (Manual) Monocytes # (Manual) Eosinophils # (Manual) INR D-Dimer ABG pH POC ABG pCO2 POC ABG pO2 ABG pO2 ABG HCO3 ABG O2 Saturation ABG Base Excess ABG Hemoglobin ABG Oxyhemoglobin ABG Sodium ABG Potassium ABG Chloride ABG Glucose Oxyhemoglobin Carboxyhemoglobin Sodium Potassium Chloride Carbon Dioxide BUN Creatinine Glucose POC Glucose 136 H 137 H Hemoglobin A1c Lactic Acid Calcium Phosphorus Magnesium 2.80 H Ferritin Total Bilirubin AST ALT Lactate Dehydrogenase C-Reactive Protein Albumin Triglycerides Arterial Blood Glucose Arterial Blood Ionized Calcium Urine Creatinine Coronavirus (PCR) Crossmatch 01/25/21 01/25/21 01/25/21 04:15 05:40 05:40 WBC RBC Hgb Hct MCV 95 H MCH 33 H MCHC 35 H RDW Plt Count Lymph % (Auto) Lymph # (Auto) Seg Neutrophils % Seg Neuts % (Manual) 95.0 H Lymphocytes % (Manual) 3.0 L Monocytes % (Manual) Nucleated RBC % Seg Neutrophils # Seg Neutrophils # Man 7.8 H Lymphocytes # (Manual) 0.2 L Monocytes # (Manual) Eosinophils # (Manual) INR D-Dimer ABG pH POC ABG pCO2 POC ABG pO2 63.2 L ABG pO2 ABG HCO3 ABG O2 Saturation ABG Base Excess ABG Hemoglobin ABG Oxyhemoglobin 89.6 L ABG Sodium ABG Potassium ABG Chloride ABG Glucose 165 H Oxyhemoglobin Carboxyhemoglobin 0.3 L Sodium Potassium Chloride Carbon Dioxide BUN 67 H Creatinine 3.4 H Glucose 153 H POC Glucose Hemoglobin A1c Lactic Acid Calcium 7.5 L Phosphorus Magnesium Ferritin Total Bilirubin 1.40 H AST 62 H ALT Lactate Dehydrogenase C-Reactive Protein Albumin 2.6 L Triglycerides Arterial Blood Glucose 165 H Arterial Blood Ionized Calcium 4.3 L Urine Creatinine Coronavirus (PCR) Crossmatch 01/25/21 01/25/21 01/25/21 05:59 12:00 17:17 WBC RBC Hgb Hct MCV MCH MCHC RDW Plt Count Lymph % (Auto) Lymph # (Auto) Seg Neutrophils % Seg Neuts % (Manual) Lymphocytes % (Manual) Monocytes % (Manual) Nucleated RBC % Seg Neutrophils # Seg Neutrophils # Man Lymphocytes # (Manual) Monocytes # (Manual) Eosinophils # (Manual) INR D-Dimer ABG pH POC ABG pCO2 POC ABG pO2 ABG pO2 ABG HCO3 ABG O2 Saturation ABG Base Excess ABG Hemoglobin ABG Oxyhemoglobin ABG Sodium ABG Potassium ABG Chloride ABG Glucose Oxyhemoglobin Carboxyhemoglobin Sodium Potassium Chloride Carbon Dioxide BUN Creatinine Glucose POC Glucose 140 H 143 H 149 H Hemoglobin A1c Lactic Acid Calcium Phosphorus Magnesium Ferritin Total Bilirubin AST ALT Lactate Dehydrogenase C-Reactive Protein Albumin Triglycerides Arterial Blood Glucose Arterial Blood Ionized Calcium Urine Creatinine Coronavirus (PCR) Crossmatch 01/25/21 01/26/21 01/26/21 23:41 03:43 05:46 WBC RBC Hgb Hct MCV MCH MCHC RDW Plt Count Lymph % (Auto) Lymph # (Auto) Seg Neutrophils % Seg Neuts % (Manual) Lymphocytes % (Manual) Monocytes % (Manual) Nucleated RBC % Seg Neutrophils # Seg Neutrophils # Man Lymphocytes # (Manual) Monocytes # (Manual) Eosinophils # (Manual) INR D-Dimer ABG pH POC ABG pCO2 POC ABG pO2 70.0 L ABG pO2 ABG HCO3 ABG O2 Saturation ABG Base Excess ABG Hemoglobin ABG Oxyhemoglobin 91.9 L ABG Sodium ABG Potassium ABG Chloride 109.0 H ABG Glucose 165 H Oxyhemoglobin Carboxyhemoglobin Sodium Potassium Chloride Carbon Dioxide BUN Creatinine Glucose POC Glucose 132 H 161 H Hemoglobin A1c Lactic Acid Calcium Phosphorus Magnesium Ferritin Total Bilirubin AST ALT Lactate Dehydrogenase C-Reactive Protein Albumin Triglycerides Arterial Blood Glucose 165 H Arterial Blood Ionized Calcium 4.5 L Urine Creatinine Coronavirus (PCR) Crossmatch 01/26/21 01/26/21 01/26/21 05:47 05:47 05:47 WBC RBC Hgb Hct 35.3 L MCV 96 H MCH 33 H MCHC RDW Plt Count Lymph % (Auto) Lymph # (Auto) Seg Neutrophils % Seg Neuts % (Manual) 96.0 H Lymphocytes % (Manual) 2.0 L Monocytes % (Manual) Nucleated RBC % Seg Neutrophils # Seg Neutrophils # Man Lymphocytes # (Manual) 0.1 L Monocytes # (Manual) Eosinophils # (Manual) INR D-Dimer > 75535 H ABG pH POC ABG pCO2 POC ABG pO2 ABG pO2 ABG HCO3 ABG O2 Saturation ABG Base Excess ABG Hemoglobin ABG Oxyhemoglobin ABG Sodium ABG Potassium ABG Chloride ABG Glucose Oxyhemoglobin Carboxyhemoglobin Sodium Potassium Chloride Carbon Dioxide BUN 57 H Creatinine 2.2 H Glucose 185 H POC Glucose Hemoglobin A1c Lactic Acid Calcium 8.1 L Phosphorus Magnesium Ferritin Total Bilirubin AST ALT Lactate Dehydrogenase C-Reactive Protein Albumin Triglycerides Arterial Blood Glucose Arterial Blood Ionized Calcium Urine Creatinine Coronavirus (PCR) Crossmatch 01/26/21 01/26/21 01/26/21 05:47 05:47 05:47 WBC RBC Hgb Hct MCV MCH MCHC RDW Plt Count Lymph % (Auto) Lymph # (Auto) Seg Neutrophils % Seg Neuts % (Manual) Lymphocytes % (Manual) Monocytes % (Manual) Nucleated RBC % Seg Neutrophils # Seg Neutrophils # Man Lymphocytes # (Manual) Monocytes # (Manual) Eosinophils # (Manual) INR D-Dimer ABG pH POC ABG pCO2 POC ABG pO2 ABG pO2 ABG HCO3 ABG O2 Saturation ABG Base Excess ABG Hemoglobin ABG Oxyhemoglobin ABG Sodium ABG Potassium ABG Chloride ABG Glucose Oxyhemoglobin Carboxyhemoglobin Sodium Potassium Chloride 107.1 H Carbon Dioxide BUN 56 H Creatinine 2.2 H Glucose 188 H POC Glucose Hemoglobin A1c Lactic Acid Calcium 8.0 L Phosphorus Magnesium Ferritin 1178.0 H Total Bilirubin 1.50 H AST ALT Lactate Dehydrogenase 588 H C-Reactive Protein 40.10 H Albumin 2.2 L Triglycerides Arterial Blood Glucose Arterial Blood Ionized Calcium Urine Creatinine Coronavirus (PCR) Crossmatch 01/26/21 01/26/21 01/26/21 11:34 18:17 23:20 WBC RBC Hgb Hct MCV MCH MCHC RDW Plt Count Lymph % (Auto) Lymph # (Auto) Seg Neutrophils % Seg Neuts % (Manual) Lymphocytes % (Manual) Monocytes % (Manual) Nucleated RBC % Seg Neutrophils # Seg Neutrophils # Man Lymphocytes # (Manual) Monocytes # (Manual) Eosinophils # (Manual) INR D-Dimer ABG pH POC ABG pCO2 POC ABG pO2 ABG pO2 ABG HCO3 ABG O2 Saturation ABG Base Excess ABG Hemoglobin ABG Oxyhemoglobin ABG Sodium ABG Potassium ABG Chloride ABG Glucose Oxyhemoglobin Carboxyhemoglobin Sodium Potassium Chloride Carbon Dioxide BUN Creatinine Glucose POC Glucose 129 H 205 H 155 H Hemoglobin A1c Lactic Acid Calcium Phosphorus Magnesium Ferritin Total Bilirubin AST ALT Lactate Dehydrogenase C-Reactive Protein Albumin Triglycerides Arterial Blood Glucose Arterial Blood Ionized Calcium Urine Creatinine Coronavirus (PCR) Crossmatch 01/27/21 01/27/21 01/27/21 02:45 05:29 05:29 WBC RBC 3.58 L Hgb 11.7 L Hct 34.9 L MCV 97 H MCH 33 H MCHC RDW Plt Count Lymph % (Auto) Lymph # (Auto) Seg Neutrophils % Seg Neuts % (Manual) 88.0 H Lymphocytes % (Manual) 7.0 L Monocytes % (Manual) Nucleated RBC % Seg Neutrophils # Seg Neutrophils # Man Lymphocytes # (Manual) 0.5 L Monocytes # (Manual) Eosinophils # (Manual) INR D-Dimer ABG pH 7.319 L POC ABG pCO2 50.7 H POC ABG pO2 63.0 L ABG pO2 ABG HCO3 ABG O2 Saturation ABG Base Excess ABG Hemoglobin ABG Oxyhemoglobin ABG Sodium 145.2 H ABG Potassium 5.1 H ABG Chloride 114.0 H ABG Glucose 178 H Oxyhemoglobin Carboxyhemoglobin Sodium Potassium Chloride Carbon Dioxide BUN Creatinine Glucose POC Glucose Hemoglobin A1c Lactic Acid Calcium Phosphorus Magnesium 4.00 H Ferritin Total Bilirubin AST ALT Lactate Dehydrogenase C-Reactive Protein Albumin Triglycerides Arterial Blood Glucose 178 H Arterial Blood Ionized Calcium Urine Creatinine Coronavirus (PCR) Crossmatch 01/27/21 01/27/21 01/27/21 05:29 05:29 05:31 WBC RBC Hgb Hct MCV MCH MCHC RDW Plt Count Lymph % (Auto) Lymph # (Auto) Seg Neutrophils % Seg Neuts % (Manual) Lymphocytes % (Manual) Monocytes % (Manual) Nucleated RBC % Seg Neutrophils # Seg Neutrophils # Man Lymphocytes # (Manual) Monocytes # (Manual) Eosinophils # (Manual) INR D-Dimer ABG pH POC ABG pCO2 POC ABG pO2 ABG pO2 ABG HCO3 ABG O2 Saturation ABG Base Excess ABG Hemoglobin ABG Oxyhemoglobin ABG Sodium ABG Potassium ABG Chloride ABG Glucose Oxyhemoglobin Carboxyhemoglobin Sodium Potassium 5.2 H Chloride 109.6 H Carbon Dioxide BUN 67 H Creatinine 2.8 H Glucose 195 H POC Glucose 176 H Hemoglobin A1c Lactic Acid Calcium 7.9 L Phosphorus Magnesium Ferritin Total Bilirubin AST ALT Lactate Dehydrogenase C-Reactive Protein Albumin Triglycerides 160 H Arterial Blood Glucose Arterial Blood Ionized Calcium Urine Creatinine Coronavirus (PCR) Crossmatch 01/27/21 01/27/21 01/27/21 11:27 18:08 23:30 WBC RBC Hgb Hct MCV MCH MCHC RDW Plt Count Lymph % (Auto) Lymph # (Auto) Seg Neutrophils % Seg Neuts % (Manual) Lymphocytes % (Manual) Monocytes % (Manual) Nucleated RBC % Seg Neutrophils # Seg Neutrophils # Man Lymphocytes # (Manual) Monocytes # (Manual) Eosinophils # (Manual) INR D-Dimer ABG pH POC ABG pCO2 POC ABG pO2 ABG pO2 ABG HCO3 ABG O2 Saturation ABG Base Excess ABG Hemoglobin ABG Oxyhemoglobin ABG Sodium ABG Potassium ABG Chloride ABG Glucose Oxyhemoglobin Carboxyhemoglobin Sodium Potassium Chloride Carbon Dioxide BUN Creatinine Glucose POC Glucose 189 H 212 H 175 H Hemoglobin A1c Lactic Acid Calcium Phosphorus Magnesium Ferritin Total Bilirubin AST ALT Lactate Dehydrogenase C-Reactive Protein Albumin Triglycerides Arterial Blood Glucose Arterial Blood Ionized Calcium Urine Creatinine Coronavirus (PCR) Crossmatch 01/28/21 01/28/21 01/28/21 03:58 04:00 04:00 WBC RBC Hgb Hct MCV MCH MCHC RDW Plt Count Lymph % (Auto) Lymph # (Auto) Seg Neutrophils % Seg Neuts % (Manual) Lymphocytes % (Manual) Monocytes % (Manual) Nucleated RBC % Seg Neutrophils # Seg Neutrophils # Man Lymphocytes # (Manual) Monocytes # (Manual) Eosinophils # (Manual) INR D-Dimer > 50917 H ABG pH POC ABG pCO2 POC ABG pO2 52.9 L ABG pO2 ABG HCO3 ABG O2 Saturation ABG Base Excess ABG Hemoglobin ABG Oxyhemoglobin 84.1 L ABG Sodium 148.9 H ABG Potassium ABG Chloride 117.0 H ABG Glucose 194 H Oxyhemoglobin Carboxyhemoglobin Sodium Potassium Chloride Carbon Dioxide BUN Creatinine Glucose POC Glucose Hemoglobin A1c Lactic Acid Calcium Phosphorus Magnesium Ferritin Total Bilirubin AST ALT Lactate Dehydrogenase 679 H C-Reactive Protein 17.10 H Albumin Triglycerides Arterial Blood Glucose 194 H Arterial Blood Ionized Calcium Urine Creatinine Coronavirus (PCR) Crossmatch 01/28/21 01/28/21 01/28/21 04:00 05:00 06:00 WBC RBC 3.59 L Hgb 11.6 L Hct 34.8 L MCV 97 H MCH MCHC RDW Plt Count Lymph % (Auto) Lymph # (Auto) Seg Neutrophils % Seg Neuts % (Manual) 96.0 H Lymphocytes % (Manual) 3.0 L Monocytes % (Manual) Nucleated RBC % Seg Neutrophils # Seg Neutrophils # Man Lymphocytes # (Manual) 0.2 L Monocytes # (Manual) Eosinophils # (Manual) INR D-Dimer ABG pH POC ABG pCO2 POC ABG pO2 ABG pO2 ABG HCO3 ABG O2 Saturation ABG Base Excess ABG Hemoglobin ABG Oxyhemoglobin ABG Sodium ABG Potassium ABG Chloride ABG Glucose Oxyhemoglobin Carboxyhemoglobin Sodium Potassium Chloride Carbon Dioxide BUN Creatinine Glucose POC Glucose 159 H Hemoglobin A1c Lactic Acid Calcium Phosphorus Magnesium Ferritin 798.0 H Total Bilirubin AST ALT Lactate Dehydrogenase C-Reactive Protein Albumin Triglycerides Arterial Blood Glucose Arterial Blood Ionized Calcium Urine Creatinine Coronavirus (PCR) Crossmatch 01/28/21 01/28/21 01/28/21 06:00 06:00 08:12 WBC RBC Hgb Hct MCV MCH MCHC RDW Plt Count Lymph % (Auto) Lymph # (Auto) Seg Neutrophils % Seg Neuts % (Manual) Lymphocytes % (Manual) Monocytes % (Manual) Nucleated RBC % Seg Neutrophils # Seg Neutrophils # Man Lymphocytes # (Manual) Monocytes # (Manual) Eosinophils # (Manual) INR D-Dimer ABG pH POC ABG pCO2 POC ABG pO2 ABG pO2 ABG HCO3 ABG O2 Saturation ABG Base Excess ABG Hemoglobin ABG Oxyhemoglobin ABG Sodium ABG Potassium ABG Chloride ABG Glucose Oxyhemoglobin Carboxyhemoglobin Sodium Potassium Chloride 111.9 H Carbon Dioxide BUN 59 H Creatinine 2.2 H Glucose 189 H POC Glucose 181 H Hemoglobin A1c Lactic Acid Calcium 8.1 L Phosphorus Magnesium 3.20 H Ferritin Total Bilirubin AST ALT Lactate Dehydrogenase C-Reactive Protein Albumin Triglycerides Arterial Blood Glucose Arterial Blood Ionized Calcium Urine Creatinine Coronavirus (PCR) Crossmatch 01/28/21 01/28/21 01/28/21 12:03 16:43 23:51 WBC RBC Hgb Hct MCV MCH MCHC RDW Plt Count Lymph % (Auto) Lymph # (Auto) Seg Neutrophils % Seg Neuts % (Manual) Lymphocytes % (Manual) Monocytes % (Manual) Nucleated RBC % Seg Neutrophils # Seg Neutrophils # Man Lymphocytes # (Manual) Monocytes # (Manual) Eosinophils # (Manual) INR D-Dimer ABG pH POC ABG pCO2 POC ABG pO2 ABG pO2 ABG HCO3 ABG O2 Saturation ABG Base Excess ABG Hemoglobin ABG Oxyhemoglobin ABG Sodium ABG Potassium ABG Chloride ABG Glucose Oxyhemoglobin Carboxyhemoglobin Sodium Potassium Chloride Carbon Dioxide BUN Creatinine Glucose POC Glucose 164 H 198 H 196 H Hemoglobin A1c Lactic Acid Calcium Phosphorus Magnesium Ferritin Total Bilirubin AST ALT Lactate Dehydrogenase C-Reactive Protein Albumin Triglycerides Arterial Blood Glucose Arterial Blood Ionized Calcium Urine Creatinine Coronavirus (PCR) Crossmatch 01/29/21 01/29/21 01/29/21 05:00 05:23 06:00 WBC RBC Hgb Hct MCV MCH MCHC RDW Plt Count Lymph % (Auto) Lymph # (Auto) Seg Neutrophils % Seg Neuts % (Manual) Lymphocytes % (Manual) Monocytes % (Manual) Nucleated RBC % Seg Neutrophils # Seg Neutrophils # Man Lymphocytes # (Manual) Monocytes # (Manual) Eosinophils # (Manual) INR D-Dimer ABG pH 7.119 L POC ABG pCO2 87.1 H POC ABG pO2 ABG pO2 ABG HCO3 ABG O2 Saturation ABG Base Excess ABG Hemoglobin ABG Oxyhemoglobin ABG Sodium 152.5 H ABG Potassium 5.7 H ABG Chloride 120.0 H ABG Glucose 217 H Oxyhemoglobin Carboxyhemoglobin Sodium 151 H Potassium 5.9 H D Chloride 117.8 H Carbon Dioxide BUN 54 H Creatinine 2.2 H Glucose 208 H POC Glucose 180 H Hemoglobin A1c Lactic Acid Calcium 7.9 L Phosphorus Magnesium Ferritin Total Bilirubin AST ALT Lactate Dehydrogenase C-Reactive Protein Albumin Triglycerides Arterial Blood Glucose 217 H Arterial Blood Ionized Calcium Urine Creatinine Coronavirus (PCR) Crossmatch 01/29/21 01/29/21 01/29/21 12:29 17:28 18:05 WBC RBC Hgb Hct MCV MCH MCHC RDW Plt Count Lymph % (Auto) Lymph # (Auto) Seg Neutrophils % Seg Neuts % (Manual) Lymphocytes % (Manual) Monocytes % (Manual) Nucleated RBC % Seg Neutrophils # Seg Neutrophils # Man Lymphocytes # (Manual) Monocytes # (Manual) Eosinophils # (Manual) INR D-Dimer ABG pH POC ABG pCO2 POC ABG pO2 ABG pO2 ABG HCO3 ABG O2 Saturation ABG Base Excess ABG Hemoglobin ABG Oxyhemoglobin ABG Sodium ABG Potassium ABG Chloride ABG Glucose Oxyhemoglobin Carboxyhemoglobin Sodium 151 H Potassium 5.5 H Chloride 118.2 H Carbon Dioxide BUN 52 H Creatinine 2.2 H Glucose 224 H POC Glucose 181 H 203 H Hemoglobin A1c Lactic Acid Calcium 8.0 L Phosphorus Magnesium Ferritin Total Bilirubin AST ALT Lactate Dehydrogenase C-Reactive Protein Albumin Triglycerides Arterial Blood Glucose Arterial Blood Ionized Calcium Urine Creatinine Coronavirus (PCR) Crossmatch 01/29/21 01/29/21 01/29/21 18:13 23:34 Unknown WBC RBC Hgb Hct MCV 101 H MCH MCHC RDW 15.7 H Plt Count Lymph % (Auto) Lymph # (Auto) Seg Neutrophils % Seg Neuts % (Manual) 95.0 H Lymphocytes % (Manual) 3.0 L Monocytes % (Manual) Nucleated RBC % Seg Neutrophils # Seg Neutrophils # Man 8.0 H Lymphocytes # (Manual) 0.3 L Monocytes # (Manual) Eosinophils # (Manual) INR D-Dimer ABG pH 7.223 L POC ABG pCO2 64.8 H POC ABG pO2 63.6 L ABG pO2 ABG HCO3 ABG O2 Saturation ABG Base Excess ABG Hemoglobin ABG Oxyhemoglobin 89.4 L ABG Sodium 152.9 H ABG Potassium 5.3 H ABG Chloride 121.0 H ABG Glucose 227 H Oxyhemoglobin Carboxyhemoglobin Sodium Potassium Chloride Carbon Dioxide BUN Creatinine Glucose POC Glucose 198 H Hemoglobin A1c Lactic Acid Calcium Phosphorus Magnesium Ferritin Total Bilirubin AST ALT Lactate Dehydrogenase C-Reactive Protein Albumin Triglycerides Arterial Blood Glucose 227 H Arterial Blood Ionized Calcium Urine Creatinine Coronavirus (PCR) Crossmatch 01/30/21 01/30/21 01/30/21 04:00 04:00 04:00 WBC RBC Hgb Hct MCV MCH MCHC RDW Plt Count Lymph % (Auto) Lymph # (Auto) Seg Neutrophils % Seg Neuts % (Manual) Lymphocytes % (Manual) Monocytes % (Manual) Nucleated RBC % Seg Neutrophils # Seg Neutrophils # Man Lymphocytes # (Manual) Monocytes # (Manual) Eosinophils # (Manual) INR D-Dimer > 58341 H ABG pH POC ABG pCO2 POC ABG pO2 ABG pO2 ABG HCO3 ABG O2 Saturation ABG Base Excess ABG Hemoglobin ABG Oxyhemoglobin ABG Sodium ABG Potassium ABG Chloride ABG Glucose Oxyhemoglobin Carboxyhemoglobin Sodium Potassium Chloride Carbon Dioxide BUN Creatinine Glucose 234 H POC Glucose Hemoglobin A1c Lactic Acid Calcium Phosphorus Magnesium Ferritin 763.9 H Total Bilirubin AST ALT Lactate Dehydrogenase 424 H C-Reactive Protein 23.90 H Albumin Triglycerides Arterial Blood Glucose Arterial Blood Ionized Calcium Urine Creatinine Coronavirus (PCR) Crossmatch 01/30/21 01/30/21 01/30/21 04:24 05:00 05:16 WBC RBC 3.57 L Hgb 11.3 L Hct 35.4 L MCV 99 H MCH MCHC RDW 15.6 H Plt Count Lymph % (Auto) Lymph # (Auto) Seg Neutrophils % Seg Neuts % (Manual) 97.0 H Lymphocytes % (Manual) 1.0 L Monocytes % (Manual) Nucleated RBC % Seg Neutrophils # Seg Neutrophils # Man 8.6 H Lymphocytes # (Manual) 0.1 L Monocytes # (Manual) Eosinophils # (Manual) INR D-Dimer ABG pH 7.235 L POC ABG pCO2 69.7 H POC ABG pO2 61.0 L ABG pO2 ABG HCO3 ABG O2 Saturation ABG Base Excess ABG Hemoglobin ABG Oxyhemoglobin 89 L ABG Sodium 154.2 H ABG Potassium 5.4 H ABG Chloride 121.0 H ABG Glucose 247 H Oxyhemoglobin Carboxyhemoglobin Sodium Potassium Chloride Carbon Dioxide BUN Creatinine Glucose POC Glucose 238 H Hemoglobin A1c Lactic Acid Calcium Phosphorus Magnesium Ferritin Total Bilirubin AST ALT Lactate Dehydrogenase C-Reactive Protein Albumin Triglycerides Arterial Blood Glucose 247 H Arterial Blood Ionized Calcium Urine Creatinine Coronavirus (PCR) Crossmatch 01/30/21 01/30/21 01/30/21 06:00 11:28 12:00 WBC RBC Hgb Hct MCV MCH MCHC RDW Plt Count Lymph % (Auto) Lymph # (Auto) Seg Neutrophils % Seg Neuts % (Manual) Lymphocytes % (Manual) Monocytes % (Manual) Nucleated RBC % Seg Neutrophils # Seg Neutrophils # Man Lymphocytes # (Manual) Monocytes # (Manual) Eosinophils # (Manual) INR D-Dimer ABG pH POC ABG pCO2 POC ABG pO2 ABG pO2 ABG HCO3 ABG O2 Saturation ABG Base Excess ABG Hemoglobin ABG Oxyhemoglobin ABG Sodium ABG Potassium ABG Chloride ABG Glucose Oxyhemoglobin Carboxyhemoglobin Sodium 152 H Potassium 5.3 H Chloride 120.5 H Carbon Dioxide BUN 50 H Creatinine 2.3 H Glucose 239 H POC Glucose 153 H Hemoglobin A1c Lactic Acid Calcium 8.2 L Phosphorus Magnesium 2.60 H Ferritin Total Bilirubin AST ALT Lactate Dehydrogenase C-Reactive Protein Albumin Triglycerides 293 H Arterial Blood Glucose Arterial Blood Ionized Calcium Urine Creatinine 53.0 H Coronavirus (PCR) Crossmatch 01/30/21 01/30/21 01/31/21 18:49 23:06 04:00 WBC RBC Hgb Hct MCV MCH MCHC RDW Plt Count Lymph % (Auto) Lymph # (Auto) Seg Neutrophils % Seg Neuts % (Manual) Lymphocytes % (Manual) Monocytes % (Manual) Nucleated RBC % Seg Neutrophils # Seg Neutrophils # Man Lymphocytes # (Manual) Monocytes # (Manual) Eosinophils # (Manual) INR D-Dimer ABG pH POC ABG pCO2 POC ABG pO2 ABG pO2 ABG HCO3 ABG O2 Saturation ABG Base Excess ABG Hemoglobin ABG Oxyhemoglobin ABG Sodium ABG Potassium ABG Chloride ABG Glucose Oxyhemoglobin Carboxyhemoglobin Sodium 156 H Potassium 5.9 H Chloride 122.6 H Carbon Dioxide BUN 61 H Creatinine 3.2 H Glucose 205 H POC Glucose 220 H 192 H Hemoglobin A1c Lactic Acid Calcium 8.0 L Phosphorus Magnesium Ferritin Total Bilirubin AST ALT Lactate Dehydrogenase C-Reactive Protein Albumin Triglycerides Arterial Blood Glucose Arterial Blood Ionized Calcium Urine Creatinine Coronavirus (PCR) Crossmatch 01/31/21 01/31/21 01/31/21 04:40 05:17 11:33 WBC RBC Hgb Hct MCV MCH MCHC RDW Plt Count Lymph % (Auto) Lymph # (Auto) Seg Neutrophils % Seg Neuts % (Manual) Lymphocytes % (Manual) Monocytes % (Manual) Nucleated RBC % Seg Neutrophils # Seg Neutrophils # Man Lymphocytes # (Manual) Monocytes # (Manual) Eosinophils # (Manual) INR D-Dimer ABG pH 7.161 L* POC ABG pCO2 POC ABG pO2 ABG pO2 142.2 H ABG HCO3 28.3 H ABG O2 Saturation ABG Base Excess -3.2 L ABG Hemoglobin ABG Oxyhemoglobin ABG Sodium ABG Potassium ABG Chloride ABG Glucose Oxyhemoglobin Carboxyhemoglobin Sodium Potassium Chloride Carbon Dioxide BUN Creatinine Glucose POC Glucose 200 H 167 H Hemoglobin A1c Lactic Acid Calcium Phosphorus Magnesium Ferritin Total Bilirubin AST ALT Lactate Dehydrogenase C-Reactive Protein Albumin Triglycerides Arterial Blood Glucose Arterial Blood Ionized Calcium Urine Creatinine Coronavirus (PCR) Crossmatch 01/31/21 01/31/21 01/31/21 14:00 17:10 23:24 WBC RBC Hgb Hct MCV MCH MCHC RDW Plt Count Lymph % (Auto) Lymph # (Auto) Seg Neutrophils % Seg Neuts % (Manual) Lymphocytes % (Manual) Monocytes % (Manual) Nucleated RBC % Seg Neutrophils # Seg Neutrophils # Man Lymphocytes # (Manual) Monocytes # (Manual) Eosinophils # (Manual) INR D-Dimer ABG pH 7.205 L POC ABG pCO2 POC ABG pO2 ABG pO2 90.9 H ABG HCO3 26.5 H ABG O2 Saturation ABG Base Excess -2.7 L ABG Hemoglobin 12.3 L ABG Oxyhemoglobin ABG Sodium ABG Potassium ABG Chloride ABG Glucose Oxyhemoglobin 93.9 L Carboxyhemoglobin Sodium Potassium Chloride Carbon Dioxide BUN Creatinine Glucose POC Glucose 190 H 203 H Hemoglobin A1c Lactic Acid Calcium Phosphorus Magnesium Ferritin Total Bilirubin AST ALT Lactate Dehydrogenase C-Reactive Protein Albumin Triglycerides Arterial Blood Glucose Arterial Blood Ionized Calcium Urine Creatinine Coronavirus (PCR) Crossmatch 02/01/21 02/01/21 02/01/21 05:15 06:22 10:20 WBC RBC Hgb Hct MCV MCH MCHC RDW Plt Count Lymph % (Auto) Lymph # (Auto) Seg Neutrophils % Seg Neuts % (Manual) Lymphocytes % (Manual) Monocytes % (Manual) Nucleated RBC % Seg Neutrophils # Seg Neutrophils # Man Lymphocytes # (Manual) Monocytes # (Manual) Eosinophils # (Manual) INR D-Dimer ABG pH 6.920 L* 7.116 L* POC ABG pCO2 POC ABG pO2 ABG pO2 102.9 H 113.1 H ABG HCO3 28.2 H ABG O2 Saturation 92.9 L ABG Base Excess -6.9 L -5.8 L ABG Hemoglobin 11.6 L 9.5 L ABG Oxyhemoglobin ABG Sodium ABG Potassium ABG Chloride ABG Glucose Oxyhemoglobin 90.5 L 94.6 L Carboxyhemoglobin Sodium Potassium Chloride Carbon Dioxide BUN Creatinine Glucose POC Glucose 221 H Hemoglobin A1c Lactic Acid Calcium Phosphorus Magnesium Ferritin Total Bilirubin AST ALT Lactate Dehydrogenase C-Reactive Protein Albumin Triglycerides Arterial Blood Glucose Arterial Blood Ionized Calcium Urine Creatinine Coronavirus (PCR) Crossmatch 02/01/21 02/01/21 02/01/21 11:12 12:35 16:00 WBC RBC Hgb Hct MCV MCH MCHC RDW Plt Count Lymph % (Auto) Lymph # (Auto) Seg Neutrophils % Seg Neuts % (Manual) Lymphocytes % (Manual) Monocytes % (Manual) Nucleated RBC % Seg Neutrophils # Seg Neutrophils # Man Lymphocytes # (Manual) Monocytes # (Manual) Eosinophils # (Manual) INR D-Dimer ABG pH 7.155 L* POC ABG pCO2 POC ABG pO2 ABG pO2 94.6 H ABG HCO3 ABG O2 Saturation ABG Base Excess -6.5 L ABG Hemoglobin 13.1 L ABG Oxyhemoglobin ABG Sodium ABG Potassium ABG Chloride ABG Glucose Oxyhemoglobin 93.7 L Carboxyhemoglobin Sodium 155 H Potassium 5.1 H Chloride 120.5 H Carbon Dioxide BUN 90 H Creatinine 6.1 H D Glucose 238 H POC Glucose 207 H Hemoglobin A1c Lactic Acid Calcium 7.4 L Phosphorus Magnesium Ferritin Total Bilirubin AST ALT Lactate Dehydrogenase C-Reactive Protein Albumin Triglycerides Arterial Blood Glucose Arterial Blood Ionized Calcium Urine Creatinine Coronavirus (PCR) Crossmatch 02/01/21 02/01/21 02/02/21 17:10 23:47 04:04 WBC RBC 3.02 L Hgb 9.8 L Hct 30.7 L MCV 102 H MCH MCHC RDW 15.6 H Plt Count Lymph % (Auto) 4.2 L Lymph # (Auto) 0.3 L Seg Neutrophils % Seg Neuts % (Manual) Lymphocytes % (Manual) Monocytes % (Manual) Nucleated RBC % Seg Neutrophils # Seg Neutrophils # Man Lymphocytes # (Manual) Monocytes # (Manual) Eosinophils # (Manual) INR D-Dimer ABG pH POC ABG pCO2 POC ABG pO2 ABG pO2 ABG HCO3 ABG O2 Saturation ABG Base Excess ABG Hemoglobin ABG Oxyhemoglobin ABG Sodium ABG Potassium ABG Chloride ABG Glucose Oxyhemoglobin Carboxyhemoglobin Sodium Potassium Chloride Carbon Dioxide BUN Creatinine Glucose POC Glucose 238 H 235 H Hemoglobin A1c Lactic Acid Calcium Phosphorus Magnesium Ferritin Total Bilirubin AST ALT Lactate Dehydrogenase C-Reactive Protein Albumin Triglycerides Arterial Blood Glucose Arterial Blood Ionized Calcium Urine Creatinine Coronavirus (PCR) Crossmatch 02/02/21 02/02/21 02/02/21 05:18 05:35 11:28 WBC RBC Hgb Hct MCV MCH MCHC RDW Plt Count Lymph % (Auto) Lymph # (Auto) Seg Neutrophils % Seg Neuts % (Manual) Lymphocytes % (Manual) Monocytes % (Manual) Nucleated RBC % Seg Neutrophils # Seg Neutrophils # Man Lymphocytes # (Manual) Monocytes # (Manual) Eosinophils # (Manual) INR D-Dimer ABG pH 7.195 L* POC ABG pCO2 POC ABG pO2 ABG pO2 72.5 L ABG HCO3 ABG O2 Saturation 91.2 L ABG Base Excess -5.3 L ABG Hemoglobin 6.0 L ABG Oxyhemoglobin ABG Sodium ABG Potassium ABG Chloride ABG Glucose Oxyhemoglobin 89.1 L Carboxyhemoglobin Sodium Potassium Chloride 110.4 H Carbon Dioxide BUN 92 H Creatinine Glucose POC Glucose 239 H Hemoglobin A1c Lactic Acid Calcium Phosphorus Magnesium Ferritin Total Bilirubin AST ALT Lactate Dehydrogenase C-Reactive Protein Albumin Triglycerides Arterial Blood Glucose Arterial Blood Ionized Calcium Urine Creatinine Coronavirus (PCR) Crossmatch 02/02/21 02/02/21 02/02/21 11:53 16:00 18:04 WBC RBC Hgb Hct MCV MCH MCHC RDW Plt Count Lymph % (Auto) Lymph # (Auto) Seg Neutrophils % Seg Neuts % (Manual) Lymphocytes % (Manual) Monocytes % (Manual) Nucleated RBC % Seg Neutrophils # Seg Neutrophils # Man Lymphocytes # (Manual) Monocytes # (Manual) Eosinophils # (Manual) INR D-Dimer ABG pH POC ABG pCO2 POC ABG pO2 ABG pO2 ABG HCO3 ABG O2 Saturation ABG Base Excess ABG Hemoglobin ABG Oxyhemoglobin ABG Sodium ABG Potassium ABG Chloride ABG Glucose Oxyhemoglobin Carboxyhemoglobin Sodium Potassium Chloride Carbon Dioxide BUN Creatinine Glucose POC Glucose 248 H 199 H Hemoglobin A1c 6.3 H Lactic Acid Calcium Phosphorus Magnesium Ferritin Total Bilirubin AST ALT Lactate Dehydrogenase C-Reactive Protein Albumin Triglycerides Arterial Blood Glucose Arterial Blood Ionized Calcium Urine Creatinine Coronavirus (PCR) Crossmatch 02/02/21 02/03/21 02/03/21 23:31 03:12 04:10 WBC RBC 3.06 L Hgb 9.7 L Hct 30.4 L MCV 99 H MCH MCHC RDW 15.3 H Plt Count Lymph % (Auto) 6.1 L Lymph # (Auto) 0.5 L Seg Neutrophils % 86.1 H Seg Neuts % (Manual) Lymphocytes % (Manual) Monocytes % (Manual) Nucleated RBC % Seg Neutrophils # Seg Neutrophils # Man Lymphocytes # (Manual) Monocytes # (Manual) Eosinophils # (Manual) INR D-Dimer ABG pH 7.199 L POC ABG pCO2 48.3 H POC ABG pO2 68.3 L ABG pO2 ABG HCO3 ABG O2 Saturation ABG Base Excess ABG Hemoglobin 10.2 L ABG Oxyhemoglobin 89.2 L ABG Sodium 155.0 H ABG Potassium 4.6 H ABG Chloride 121.0 H ABG Glucose 166 H Oxyhemoglobin Carboxyhemoglobin 0.3 L Sodium Potassium Chloride Carbon Dioxide BUN Creatinine Glucose POC Glucose 200 H Hemoglobin A1c Lactic Acid Calcium Phosphorus Magnesium Ferritin Total Bilirubin AST ALT Lactate Dehydrogenase C-Reactive Protein Albumin Triglycerides Arterial Blood Glucose 166 H Arterial Blood Ionized Calcium 4.1 L Urine Creatinine Coronavirus (PCR) Crossmatch 02/03/21 02/03/21 02/03/21 04:10 05:34 11:51 WBC RBC Hgb Hct MCV MCH MCHC RDW Plt Count Lymph % (Auto) Lymph # (Auto) Seg Neutrophils % Seg Neuts % (Manual) Lymphocytes % (Manual) Monocytes % (Manual) Nucleated RBC % Seg Neutrophils # Seg Neutrophils # Man Lymphocytes # (Manual) Monocytes # (Manual) Eosinophils # (Manual) INR D-Dimer ABG pH POC ABG pCO2 POC ABG pO2 ABG pO2 ABG HCO3 ABG O2 Saturation ABG Base Excess ABG Hemoglobin ABG Oxyhemoglobin ABG Sodium ABG Potassium ABG Chloride ABG Glucose Oxyhemoglobin Carboxyhemoglobin Sodium 154 H D Potassium Chloride 116.7 H Carbon Dioxide 20 L BUN 130 H Creatinine 9.2 H D Glucose 160 H POC Glucose 130 H 154 H Hemoglobin A1c Lactic Acid Calcium 6.7 L Phosphorus 8.60 H Magnesium Ferritin Total Bilirubin AST ALT Lactate Dehydrogenase C-Reactive Protein Albumin Triglycerides Arterial Blood Glucose Arterial Blood Ionized Calcium Urine Creatinine Coronavirus (PCR) Crossmatch 02/03/21 02/03/21 02/04/21 16:49 23:22 03:48 WBC RBC Hgb Hct MCV MCH MCHC RDW Plt Count Lymph % (Auto) Lymph # (Auto) Seg Neutrophils % Seg Neuts % (Manual) Lymphocytes % (Manual) Monocytes % (Manual) Nucleated RBC % Seg Neutrophils # Seg Neutrophils # Man Lymphocytes # (Manual) Monocytes # (Manual) Eosinophils # (Manual) INR D-Dimer ABG pH 7.201 L POC ABG pCO2 54.5 H POC ABG pO2 74.0 L ABG pO2 ABG HCO3 ABG O2 Saturation ABG Base Excess ABG Hemoglobin 9.7 L ABG Oxyhemoglobin 91.1 L ABG Sodium 146.2 H ABG Potassium ABG Chloride 114.0 H ABG Glucose 155 H Oxyhemoglobin Carboxyhemoglobin Sodium Potassium Chloride Carbon Dioxide BUN Creatinine Glucose POC Glucose 164 H 152 H Hemoglobin A1c Lactic Acid Calcium Phosphorus Magnesium Ferritin Total Bilirubin AST ALT Lactate Dehydrogenase C-Reactive Protein Albumin Triglycerides Arterial Blood Glucose 155 H Arterial Blood Ionized Calcium 3.9 L Urine Creatinine Coronavirus (PCR) Crossmatch 02/04/21 02/04/21 02/04/21 04:45 04:45 04:45 WBC RBC 2.75 L Hgb 9.1 L Hct 26.9 L MCV 98 H MCH 33 H MCHC RDW Plt Count Lymph % (Auto) 6.8 L Lymph # (Auto) 0.5 L Seg Neutrophils % 87.2 H Seg Neuts % (Manual) Lymphocytes % (Manual) Monocytes % (Manual) Nucleated RBC % Seg Neutrophils # Seg Neutrophils # Man Lymphocytes # (Manual) Monocytes # (Manual) Eosinophils # (Manual) INR D-Dimer ABG pH POC ABG pCO2 POC ABG pO2 ABG pO2 ABG HCO3 ABG O2 Saturation ABG Base Excess ABG Hemoglobin ABG Oxyhemoglobin ABG Sodium ABG Potassium ABG Chloride ABG Glucose Oxyhemoglobin Carboxyhemoglobin Sodium 149 H Potassium Chloride 111.5 H Carbon Dioxide BUN 99 H Creatinine 8.5 H Glucose 139 H POC Glucose Hemoglobin A1c Lactic Acid Calcium 6.8 L Phosphorus 8.40 H Magnesium Ferritin Total Bilirubin AST ALT Lactate Dehydrogenase C-Reactive Protein Albumin Triglycerides Arterial Blood Glucose Arterial Blood Ionized Calcium Urine Creatinine Coronavirus (PCR) Crossmatch 02/04/21 02/04/21 02/04/21 06:05 11:44 18:00 WBC RBC Hgb Hct MCV MCH MCHC RDW Plt Count Lymph % (Auto) Lymph # (Auto) Seg Neutrophils % Seg Neuts % (Manual) Lymphocytes % (Manual) Monocytes % (Manual) Nucleated RBC % Seg Neutrophils # Seg Neutrophils # Man Lymphocytes # (Manual) Monocytes # (Manual) Eosinophils # (Manual) INR D-Dimer ABG pH POC ABG pCO2 POC ABG pO2 ABG pO2 ABG HCO3 ABG O2 Saturation ABG Base Excess ABG Hemoglobin ABG Oxyhemoglobin ABG Sodium ABG Potassium ABG Chloride ABG Glucose Oxyhemoglobin Carboxyhemoglobin Sodium Potassium Chloride Carbon Dioxide BUN Creatinine Glucose POC Glucose 138 H 129 H 163 H Hemoglobin A1c Lactic Acid Calcium Phosphorus Magnesium Ferritin Total Bilirubin AST ALT Lactate Dehydrogenase C-Reactive Protein Albumin Triglycerides Arterial Blood Glucose Arterial Blood Ionized Calcium Urine Creatinine Coronavirus (PCR) Crossmatch 02/04/21 02/05/21 02/05/21 23:48 01:50 01:50 WBC RBC 2.43 L Hgb 8.3 L Hct 23.6 L MCV 97 H MCH 34 H MCHC 35 H RDW Plt Count 137 L Lymph % (Auto) 8.4 L Lymph # (Auto) 0.6 L Seg Neutrophils % 86.1 H Seg Neuts % (Manual) Lymphocytes % (Manual) Monocytes % (Manual) Nucleated RBC % Seg Neutrophils # Seg Neutrophils # Man Lymphocytes # (Manual) Monocytes # (Manual) Eosinophils # (Manual) INR D-Dimer ABG pH POC ABG pCO2 POC ABG pO2 ABG pO2 ABG HCO3 ABG O2 Saturation ABG Base Excess ABG Hemoglobin ABG Oxyhemoglobin ABG Sodium ABG Potassium ABG Chloride ABG Glucose Oxyhemoglobin Carboxyhemoglobin Sodium Potassium Chloride Carbon Dioxide BUN Creatinine Glucose POC Glucose 157 H Hemoglobin A1c Lactic Acid Calcium Phosphorus 5.60 H D Magnesium Ferritin Total Bilirubin AST ALT Lactate Dehydrogenase C-Reactive Protein Albumin Triglycerides Arterial Blood Glucose Arterial Blood Ionized Calcium Urine Creatinine Coronavirus (PCR) Crossmatch 02/05/21 02/05/21 02/05/21 03:44 05:27 09:15 WBC RBC Hgb Hct MCV MCH MCHC RDW Plt Count Lymph % (Auto) Lymph # (Auto) Seg Neutrophils % Seg Neuts % (Manual) Lymphocytes % (Manual) Monocytes % (Manual) Nucleated RBC % Seg Neutrophils # Seg Neutrophils # Man Lymphocytes # (Manual) Monocytes # (Manual) Eosinophils # (Manual) INR D-Dimer ABG pH 7.202 L POC ABG pCO2 63.7 H POC ABG pO2 69.0 L ABG pO2 ABG HCO3 ABG O2 Saturation ABG Base Excess ABG Hemoglobin 9.4 L ABG Oxyhemoglobin ABG Sodium ABG Potassium ABG Chloride 108.0 H ABG Glucose 186 H Oxyhemoglobin Carboxyhemoglobin Sodium Potassium Chloride Carbon Dioxide BUN 78 H Creatinine 8.0 H Glucose 163 H POC Glucose 157 H Hemoglobin A1c Lactic Acid Calcium 6.3 L Phosphorus Magnesium Ferritin Total Bilirubin AST ALT Lactate Dehydrogenase C-Reactive Protein Albumin Triglycerides Arterial Blood Glucose 186 H Arterial Blood Ionized Calcium 3.9 L Urine Creatinine Coronavirus (PCR) Crossmatch 02/05/21 02/05/21 02/05/21 11:47 17:39 23:40 WBC RBC Hgb Hct MCV MCH MCHC RDW Plt Count Lymph % (Auto) Lymph # (Auto) Seg Neutrophils % Seg Neuts % (Manual) Lymphocytes % (Manual) Monocytes % (Manual) Nucleated RBC % Seg Neutrophils # Seg Neutrophils # Man Lymphocytes # (Manual) Monocytes # (Manual) Eosinophils # (Manual) INR D-Dimer ABG pH 7.273 L POC ABG pCO2 62.1 H POC ABG pO2 72.0 L ABG pO2 ABG HCO3 ABG O2 Saturation ABG Base Excess ABG Hemoglobin 9.1 L ABG Oxyhemoglobin 91.3 L ABG Sodium ABG Potassium 3.1 L ABG Chloride ABG Glucose 125 H Oxyhemoglobin Carboxyhemoglobin Sodium Potassium Chloride Carbon Dioxide BUN Creatinine Glucose POC Glucose 126 H 126 H Hemoglobin A1c Lactic Acid Calcium Phosphorus Magnesium Ferritin Total Bilirubin AST ALT Lactate Dehydrogenase C-Reactive Protein Albumin Triglycerides Arterial Blood Glucose 125 H Arterial Blood Ionized Calcium 4.0 L Urine Creatinine Coronavirus (PCR) Crossmatch 02/06/21 02/06/21 02/06/21 04:30 04:57 09:45 WBC RBC Hgb Hct MCV MCH MCHC RDW Plt Count Lymph % (Auto) Lymph # (Auto) Seg Neutrophils % Seg Neuts % (Manual) Lymphocytes % (Manual) Monocytes % (Manual) Nucleated RBC % Seg Neutrophils # Seg Neutrophils # Man Lymphocytes # (Manual) Monocytes # (Manual) Eosinophils # (Manual) INR D-Dimer ABG pH 7.159 L 7.138 L* POC ABG pCO2 76.3 H POC ABG pO2 66.9 L ABG pO2 ABG HCO3 ABG O2 Saturation 93.4 L ABG Base Excess -6.0 L ABG Hemoglobin 11.2 L 11.7 L ABG Oxyhemoglobin 88.2 L ABG Sodium ABG Potassium ABG Chloride ABG Glucose 134 H Oxyhemoglobin 91.2 L Carboxyhemoglobin Sodium Potassium Chloride Carbon Dioxide BUN Creatinine Glucose POC Glucose 124 H Hemoglobin A1c Lactic Acid Calcium Phosphorus Magnesium Ferritin Total Bilirubin AST ALT Lactate Dehydrogenase C-Reactive Protein Albumin Triglycerides Arterial Blood Glucose 134 H Arterial Blood Ionized Calcium 3.9 L Urine Creatinine Coronavirus (PCR) Crossmatch 02/06/21 02/06/21 02/06/21 11:11 17:00 17:00 WBC RBC Hgb Hct MCV MCH MCHC RDW Plt Count Lymph % (Auto) Lymph # (Auto) Seg Neutrophils % Seg Neuts % (Manual) Lymphocytes % (Manual) Monocytes % (Manual) Nucleated RBC % Seg Neutrophils # Seg Neutrophils # Man Lymphocytes # (Manual) Monocytes # (Manual) Eosinophils # (Manual) INR D-Dimer ABG pH 7.158 L* POC ABG pCO2 POC ABG pO2 ABG pO2 109.8 H ABG HCO3 28.7 H ABG O2 Saturation ABG Base Excess -2.5 L ABG Hemoglobin ABG Oxyhemoglobin ABG Sodium ABG Potassium ABG Chloride ABG Glucose Oxyhemoglobin 94.5 L Carboxyhemoglobin Sodium Potassium Chloride Carbon Dioxide BUN Creatinine Glucose POC Glucose 120 H Hemoglobin A1c Lactic Acid Calcium Phosphorus Magnesium Ferritin Total Bilirubin AST ALT Lactate Dehydrogenase C-Reactive Protein Albumin Triglycerides 503 H Arterial Blood Glucose Arterial Blood Ionized Calcium Urine Creatinine Coronavirus (PCR) Crossmatch 02/06/21 02/06/21 02/06/21 17:28 20:16 Unknown WBC 13.5 H RBC 2.98 L Hgb 9.3 L Hct 28.6 L MCV 96 H MCH MCHC RDW Plt Count Lymph % (Auto) Lymph # (Auto) Seg Neutrophils % Seg Neuts % (Manual) 87.0 H Lymphocytes % (Manual) 7.0 L Monocytes % (Manual) Nucleated RBC % Seg Neutrophils # Seg Neutrophils # Man 11.7 H Lymphocytes # (Manual) 0.9 L Monocytes # (Manual) Eosinophils # (Manual) 0.5 H INR D-Dimer ABG pH POC ABG pCO2 POC ABG pO2 ABG pO2 ABG HCO3 ABG O2 Saturation ABG Base Excess ABG Hemoglobin ABG Oxyhemoglobin ABG Sodium ABG Potassium ABG Chloride ABG Glucose Oxyhemoglobin Carboxyhemoglobin Sodium Potassium Chloride Carbon Dioxide BUN Creatinine Glucose POC Glucose 147 H 164 H Hemoglobin A1c Lactic Acid Calcium Phosphorus Magnesium Ferritin Total Bilirubin AST ALT Lactate Dehydrogenase C-Reactive Protein Albumin Triglycerides Arterial Blood Glucose Arterial Blood Ionized Calcium Urine Creatinine Coronavirus (PCR) Crossmatch 02/06/21 02/07/21 02/07/21 Unknown 01:21 04:00 WBC 12.0 H RBC 2.61 L Hgb 8.2 L Hct 24.5 L MCV MCH MCHC RDW Plt Count Lymph % (Auto) 8.9 L Lymph # (Auto) 1.1 L Seg Neutrophils % 86.3 H Seg Neuts % (Manual) Lymphocytes % (Manual) Monocytes % (Manual) Nucleated RBC % Seg Neutrophils # 10.3 H Seg Neutrophils # Man Lymphocytes # (Manual) Monocytes # (Manual) Eosinophils # (Manual) INR D-Dimer ABG pH POC ABG pCO2 POC ABG pO2 ABG pO2 ABG HCO3 ABG O2 Saturation ABG Base Excess ABG Hemoglobin ABG Oxyhemoglobin ABG Sodium ABG Potassium ABG Chloride ABG Glucose Oxyhemoglobin Carboxyhemoglobin Sodium Potassium 3.5 L Chloride Carbon Dioxide BUN 58 H Creatinine 6.6 H Glucose 107 H POC Glucose 173 H Hemoglobin A1c Lactic Acid Calcium 6.7 L Phosphorus 8.00 H D Magnesium Ferritin Total Bilirubin AST ALT Lactate Dehydrogenase C-Reactive Protein Albumin Triglycerides Arterial Blood Glucose Arterial Blood Ionized Calcium Urine Creatinine Coronavirus (PCR) Crossmatch 02/07/21 02/07/21 02/07/21 04:00 04:45 11:49 WBC RBC Hgb Hct MCV MCH MCHC RDW Plt Count Lymph % (Auto) Lymph # (Auto) Seg Neutrophils % Seg Neuts % (Manual) Lymphocytes % (Manual) Monocytes % (Manual) Nucleated RBC % Seg Neutrophils # Seg Neutrophils # Man Lymphocytes # (Manual) Monocytes # (Manual) Eosinophils # (Manual) INR D-Dimer ABG pH 7.287 L POC ABG pCO2 64.8 H POC ABG pO2 74.0 L ABG pO2 ABG HCO3 ABG O2 Saturation ABG Base Excess ABG Hemoglobin 9.1 L ABG Oxyhemoglobin 92.0 L ABG Sodium ABG Potassium 2.8 L ABG Chloride ABG Glucose 226 H Oxyhemoglobin Carboxyhemoglobin Sodium Potassium Chloride Carbon Dioxide BUN Creatinine Glucose POC Glucose 170 H Hemoglobin A1c Lactic Acid Calcium Phosphorus 5.50 H D Magnesium Ferritin Total Bilirubin AST ALT Lactate Dehydrogenase C-Reactive Protein Albumin Triglycerides Arterial Blood Glucose 226 H Arterial Blood Ionized Calcium 3.7 L Urine Creatinine Coronavirus (PCR) Crossmatch 02/07/21 02/07/21 02/07/21 13:48 17:45 23:02 WBC RBC Hgb Hct MCV MCH MCHC RDW Plt Count Lymph % (Auto) Lymph # (Auto) Seg Neutrophils % Seg Neuts % (Manual) Lymphocytes % (Manual) Monocytes % (Manual) Nucleated RBC % Seg Neutrophils # Seg Neutrophils # Man Lymphocytes # (Manual) Monocytes # (Manual) Eosinophils # (Manual) INR D-Dimer ABG pH POC ABG pCO2 POC ABG pO2 ABG pO2 ABG HCO3 ABG O2 Saturation ABG Base Excess ABG Hemoglobin ABG Oxyhemoglobin ABG Sodium ABG Potassium ABG Chloride ABG Glucose Oxyhemoglobin Carboxyhemoglobin Sodium 136 L Potassium 2.6 L* D Chloride 95.1 L Carbon Dioxide 33 H D BUN 30 H Creatinine 3.6 H Glucose 184 H POC Glucose 172 H 172 H Hemoglobin A1c Lactic Acid Calcium 6.9 L Phosphorus Magnesium Ferritin Total Bilirubin AST ALT Lactate Dehydrogenase C-Reactive Protein Albumin Triglycerides Arterial Blood Glucose Arterial Blood Ionized Calcium Urine Creatinine Coronavirus (PCR) Crossmatch 02/08/21 02/08/21 02/08/21 05:22 06:00 06:00 WBC RBC 2.21 L Hgb 7.2 L Hct 21.0 L MCV 95 H MCH MCHC RDW Plt Count Lymph % (Auto) Lymph # (Auto) Seg Neutrophils % Seg Neuts % (Manual) 87.0 H Lymphocytes % (Manual) 4.0 L Monocytes % (Manual) Nucleated RBC % Seg Neutrophils # Seg Neutrophils # Man 8.5 H Lymphocytes # (Manual) 0.4 L Monocytes # (Manual) Eosinophils # (Manual) INR D-Dimer ABG pH POC ABG pCO2 POC ABG pO2 ABG pO2 ABG HCO3 ABG O2 Saturation ABG Base Excess ABG Hemoglobin ABG Oxyhemoglobin ABG Sodium ABG Potassium ABG Chloride ABG Glucose Oxyhemoglobin Carboxyhemoglobin Sodium 136 L Potassium 2.4 L* Chloride 93.1 L Carbon Dioxide 36 H BUN 43 H Creatinine 5.4 H Glucose 167 H POC Glucose 162 H Hemoglobin A1c Lactic Acid Calcium 6.3 L Phosphorus Magnesium Ferritin Total Bilirubin AST ALT Lactate Dehydrogenase C-Reactive Protein Albumin Triglycerides Arterial Blood Glucose Arterial Blood Ionized Calcium Urine Creatinine Coronavirus (PCR) Crossmatch 02/08/21 02/08/21 02/08/21 11:44 17:53 18:56 WBC RBC Hgb Hct MCV MCH MCHC RDW Plt Count Lymph % (Auto) Lymph # (Auto) Seg Neutrophils % Seg Neuts % (Manual) Lymphocytes % (Manual) Monocytes % (Manual) Nucleated RBC % Seg Neutrophils # Seg Neutrophils # Man Lymphocytes # (Manual) Monocytes # (Manual) Eosinophils # (Manual) INR D-Dimer ABG pH POC ABG pCO2 POC ABG pO2 ABG pO2 ABG HCO3 ABG O2 Saturation ABG Base Excess ABG Hemoglobin ABG Oxyhemoglobin ABG Sodium ABG Potassium ABG Chloride ABG Glucose Oxyhemoglobin Carboxyhemoglobin Sodium Potassium 2.9 L* D Chloride Carbon Dioxide BUN Creatinine Glucose POC Glucose 164 H 154 H Hemoglobin A1c Lactic Acid Calcium Phosphorus Magnesium Ferritin Total Bilirubin AST ALT Lactate Dehydrogenase C-Reactive Protein Albumin Triglycerides Arterial Blood Glucose Arterial Blood Ionized Calcium Urine Creatinine Coronavirus (PCR) Crossmatch 02/08/21 02/08/21 02/09/21 23:24 23:58 03:21 WBC RBC Hgb Hct MCV MCH MCHC RDW Plt Count Lymph % (Auto) Lymph # (Auto) Seg Neutrophils % Seg Neuts % (Manual) Lymphocytes % (Manual) Monocytes % (Manual) Nucleated RBC % Seg Neutrophils # Seg Neutrophils # Man Lymphocytes # (Manual) Monocytes # (Manual) Eosinophils # (Manual) INR D-Dimer ABG pH 7.319 L POC ABG pCO2 63.3 H 68.3 H POC ABG pO2 71.2 L 76.5 L ABG pO2 ABG HCO3 ABG O2 Saturation ABG Base Excess ABG Hemoglobin 8.2 L 7.0 L ABG Oxyhemoglobin 91.8 L 92.2 L ABG Sodium 134.6 L 133.0 L ABG Potassium 2.3 L 3.1 L ABG Chloride 96.0 L 95.0 L ABG Glucose 184 H 154 H Oxyhemoglobin Carboxyhemoglobin Sodium Potassium Chloride Carbon Dioxide BUN Creatinine Glucose POC Glucose 152 H Hemoglobin A1c Lactic Acid Calcium Phosphorus Magnesium Ferritin Total Bilirubin AST ALT Lactate Dehydrogenase C-Reactive Protein Albumin Triglycerides Arterial Blood Glucose 184 H 154 H Arterial Blood Ionized Calcium 3.6 L 3.5 L Urine Creatinine Coronavirus (PCR) Crossmatch 02/09/21 02/09/21 02/09/21 05:10 05:10 06:04 WBC RBC 2.14 L Hgb 7.0 L Hct 20.5 L MCV 96 H MCH 33 H MCHC RDW Plt Count Lymph % (Auto) Lymph # (Auto) Seg Neutrophils % Seg Neuts % (Manual) 82.0 H Lymphocytes % (Manual) 9.0 L Monocytes % (Manual) Nucleated RBC % 1.0 H Seg Neutrophils # Seg Neutrophils # Man 8.9 H Lymphocytes # (Manual) 1.0 L Monocytes # (Manual) Eosinophils # (Manual) INR D-Dimer ABG pH POC ABG pCO2 POC ABG pO2 ABG pO2 ABG HCO3 ABG O2 Saturation ABG Base Excess ABG Hemoglobin ABG Oxyhemoglobin ABG Sodium ABG Potassium ABG Chloride ABG Glucose Oxyhemoglobin Carboxyhemoglobin Sodium 135 L Potassium 3.2 L Chloride 91.0 L Carbon Dioxide 32 H BUN 54 H Creatinine 6.6 H Glucose 163 H POC Glucose 149 H Hemoglobin A1c Lactic Acid Calcium 6.2 L Phosphorus Magnesium Ferritin Total Bilirubin AST ALT Lactate Dehydrogenase C-Reactive Protein Albumin Triglycerides Arterial Blood Glucose Arterial Blood Ionized Calcium Urine Creatinine Coronavirus (PCR) Crossmatch 02/09/21 02/09/21 02/09/21 12:02 13:32 13:40 WBC RBC Hgb Hct MCV MCH MCHC RDW Plt Count Lymph % (Auto) Lymph # (Auto) Seg Neutrophils % Seg Neuts % (Manual) Lymphocytes % (Manual) Monocytes % (Manual) Nucleated RBC % Seg Neutrophils # Seg Neutrophils # Man Lymphocytes # (Manual) Monocytes # (Manual) Eosinophils # (Manual) INR D-Dimer ABG pH POC ABG pCO2 POC ABG pO2 ABG pO2 ABG HCO3 ABG O2 Saturation ABG Base Excess ABG Hemoglobin ABG Oxyhemoglobin ABG Sodium ABG Potassium ABG Chloride ABG Glucose Oxyhemoglobin Carboxyhemoglobin Sodium Potassium Chloride Carbon Dioxide BUN Creatinine Glucose POC Glucose 147 H Hemoglobin A1c Lactic Acid Calcium Phosphorus Magnesium Ferritin Total Bilirubin AST ALT Lactate Dehydrogenase C-Reactive Protein Albumin Triglycerides 250 H Arterial Blood Glucose Arterial Blood Ionized Calcium Urine Creatinine Coronavirus (PCR) Crossmatch See Detail 02/09/21 02/09/21 02/10/21 18:06 23:42 04:00 WBC RBC Hgb Hct MCV MCH MCHC RDW Plt Count Lymph % (Auto) Lymph # (Auto) Seg Neutrophils % Seg Neuts % (Manual) Lymphocytes % (Manual) Monocytes % (Manual) Nucleated RBC % Seg Neutrophils # Seg Neutrophils # Man Lymphocytes # (Manual) Monocytes # (Manual) Eosinophils # (Manual) INR D-Dimer ABG pH POC ABG pCO2 65.8 H POC ABG pO2 68.0 L ABG pO2 ABG HCO3 ABG O2 Saturation ABG Base Excess ABG Hemoglobin 8.3 L ABG Oxyhemoglobin ABG Sodium 132.4 L ABG Potassium 2.9 L ABG Chloride 92.0 L ABG Glucose 174 H Oxyhemoglobin Carboxyhemoglobin Sodium Potassium Chloride Carbon Dioxide BUN Creatinine Glucose POC Glucose 152 H 147 H Hemoglobin A1c Lactic Acid Calcium Phosphorus Magnesium Ferritin Total Bilirubin AST ALT Lactate Dehydrogenase C-Reactive Protein Albumin Triglycerides Arterial Blood Glucose 174 H Arterial Blood Ionized Calcium 3.4 L Urine Creatinine Coronavirus (PCR) Crossmatch 02/10/21 02/10/21 02/10/21 05:32 11:29 14:08 WBC 12.5 H RBC 2.14 L Hgb 6.6 L Hct 20.2 L MCV MCH MCHC RDW Plt Count Lymph % (Auto) Lymph # (Auto) Seg Neutrophils % Seg Neuts % (Manual) Lymphocytes % (Manual) Monocytes % (Manual) Nucleated RBC % Seg Neutrophils # Seg Neutrophils # Man Lymphocytes # (Manual) Monocytes # (Manual) Eosinophils # (Manual) INR D-Dimer ABG pH POC ABG pCO2 POC ABG pO2 ABG pO2 ABG HCO3 ABG O2 Saturation ABG Base Excess ABG Hemoglobin ABG Oxyhemoglobin ABG Sodium ABG Potassium ABG Chloride ABG Glucose Oxyhemoglobin Carboxyhemoglobin Sodium Potassium Chloride Carbon Dioxide BUN Creatinine Glucose POC Glucose 167 H 147 H Hemoglobin A1c Lactic Acid Calcium Phosphorus Magnesium Ferritin Total Bilirubin AST ALT Lactate Dehydrogenase C-Reactive Protein Albumin Triglycerides Arterial Blood Glucose Arterial Blood Ionized Calcium Urine Creatinine Coronavirus (PCR) Crossmatch 02/10/21 02/10/21 02/10/21 14:08 18:11 22:32 WBC RBC Hgb 6.4 L Hct 19.1 L* MCV MCH MCHC RDW Plt Count Lymph % (Auto) Lymph # (Auto) Seg Neutrophils % Seg Neuts % (Manual) Lymphocytes % (Manual) Monocytes % (Manual) Nucleated RBC % Seg Neutrophils # Seg Neutrophils # Man Lymphocytes # (Manual) Monocytes # (Manual) Eosinophils # (Manual) INR D-Dimer ABG pH POC ABG pCO2 POC ABG pO2 ABG pO2 ABG HCO3 ABG O2 Saturation ABG Base Excess ABG Hemoglobin ABG Oxyhemoglobin ABG Sodium ABG Potassium ABG Chloride ABG Glucose Oxyhemoglobin Carboxyhemoglobin Sodium 136 L Potassium 2.9 L* Chloride 90.2 L Carbon Dioxide 33 H BUN 42 H Creatinine 7.5 H Glucose 155 H POC Glucose 173 H Hemoglobin A1c Lactic Acid Calcium 6.1 L Phosphorus Magnesium Ferritin Total Bilirubin AST ALT Lactate Dehydrogenase C-Reactive Protein Albumin Triglycerides Arterial Blood Glucose Arterial Blood Ionized Calcium Urine Creatinine Coronavirus (PCR) Crossmatch 02/11/21 02/11/21 02/11/21 00:28 04:05 04:30 WBC RBC Hgb Hct MCV MCH MCHC RDW Plt Count Lymph % (Auto) Lymph # (Auto) Seg Neutrophils % Seg Neuts % (Manual) Lymphocytes % (Manual) Monocytes % (Manual) Nucleated RBC % Seg Neutrophils # Seg Neutrophils # Man Lymphocytes # (Manual) Monocytes # (Manual) Eosinophils # (Manual) INR D-Dimer ABG pH 7.307 L POC ABG pCO2 72.2 H POC ABG pO2 72.3 L ABG pO2 ABG HCO3 ABG O2 Saturation ABG Base Excess ABG Hemoglobin 8.2 L ABG Oxyhemoglobin ABG Sodium 132.3 L ABG Potassium 3.2 L ABG Chloride 91.0 L ABG Glucose 197 H Oxyhemoglobin Carboxyhemoglobin Sodium 135 L Potassium 3.3 L Chloride 87.1 L Carbon Dioxide 36 H BUN 71 H Creatinine 7.9 H Glucose 263 H POC Glucose 192 H Hemoglobin A1c Lactic Acid Calcium 6.2 L Phosphorus Magnesium Ferritin Total Bilirubin AST ALT Lactate Dehydrogenase C-Reactive Protein Albumin Triglycerides Arterial Blood Glucose 197 H Arterial Blood Ionized Calcium 3.3 L Urine Creatinine Coronavirus (PCR) Crossmatch 02/11/21 02/11/21 02/11/21 04:30 05:47 08:27 WBC RBC 2.22 L Hgb 7.2 L Hct 21.0 L MCV MCH MCHC RDW Plt Count Lymph % (Auto) 8.7 L Lymph # (Auto) 0.9 L Seg Neutrophils % 85.5 H Seg Neuts % (Manual) Lymphocytes % (Manual) Monocytes % (Manual) Nucleated RBC % Seg Neutrophils # 9.2 H Seg Neutrophils # Man Lymphocytes # (Manual) Monocytes # (Manual) Eosinophils # (Manual) INR 1.17 H D-Dimer 1930.92 H ABG pH POC ABG pCO2 POC ABG pO2 ABG pO2 ABG HCO3 ABG O2 Saturation ABG Base Excess ABG Hemoglobin ABG Oxyhemoglobin ABG Sodium ABG Potassium ABG Chloride ABG Glucose Oxyhemoglobin Carboxyhemoglobin Sodium Potassium Chloride Carbon Dioxide BUN Creatinine Glucose POC Glucose 189 H Hemoglobin A1c Lactic Acid Calcium Phosphorus Magnesium Ferritin Total Bilirubin AST ALT Lactate Dehydrogenase C-Reactive Protein Albumin Triglycerides Arterial Blood Glucose Arterial Blood Ionized Calcium Urine Creatinine Coronavirus (PCR) Crossmatch 02/11/21 02/11/21 02/11/21 09:00 09:00 13:18 WBC RBC Hgb Hct MCV MCH MCHC RDW Plt Count Lymph % (Auto) Lymph # (Auto) Seg Neutrophils % Seg Neuts % (Manual) Lymphocytes % (Manual) Monocytes % (Manual) Nucleated RBC % Seg Neutrophils # Seg Neutrophils # Man Lymphocytes # (Manual) Monocytes # (Manual) Eosinophils # (Manual) INR D-Dimer ABG pH POC ABG pCO2 POC ABG pO2 ABG pO2 ABG HCO3 ABG O2 Saturation ABG Base Excess ABG Hemoglobin ABG Oxyhemoglobin ABG Sodium ABG Potassium ABG Chloride ABG Glucose Oxyhemoglobin Carboxyhemoglobin Sodium Potassium Chloride Carbon Dioxide BUN Creatinine Glucose 126 H POC Glucose 160 H Hemoglobin A1c Lactic Acid Calcium Phosphorus Magnesium Ferritin 1253.0 H Total Bilirubin AST ALT Lactate Dehydrogenase 649 H C-Reactive Protein 12.60 H Albumin Triglycerides Arterial Blood Glucose Arterial Blood Ionized Calcium Urine Creatinine Coronavirus (PCR) Crossmatch 02/11/21 02/11/21 02/11/21 14:30 16:59 22:34 WBC RBC Hgb 7.1 L 6.7 L Hct 20.5 L 19.9 L* MCV MCH MCHC RDW Plt Count Lymph % (Auto) Lymph # (Auto) Seg Neutrophils % Seg Neuts % (Manual) Lymphocytes % (Manual) Monocytes % (Manual) Nucleated RBC % Seg Neutrophils # Seg Neutrophils # Man Lymphocytes # (Manual) Monocytes # (Manual) Eosinophils # (Manual) INR D-Dimer ABG pH POC ABG pCO2 POC ABG pO2 ABG pO2 ABG HCO3 ABG O2 Saturation ABG Base Excess ABG Hemoglobin ABG Oxyhemoglobin ABG Sodium ABG Potassium ABG Chloride ABG Glucose Oxyhemoglobin Carboxyhemoglobin Sodium Potassium Chloride Carbon Dioxide BUN Creatinine Glucose POC Glucose 151 H Hemoglobin A1c Lactic Acid Calcium Phosphorus Magnesium Ferritin Total Bilirubin AST ALT Lactate Dehydrogenase C-Reactive Protein Albumin Triglycerides Arterial Blood Glucose Arterial Blood Ionized Calcium Urine Creatinine Coronavirus (PCR) Crossmatch 02/11/21 02/12/21 02/12/21 23:42 04:41 05:19 WBC RBC Hgb Hct MCV MCH MCHC RDW Plt Count Lymph % (Auto) Lymph # (Auto) Seg Neutrophils % Seg Neuts % (Manual) Lymphocytes % (Manual) Monocytes % (Manual) Nucleated RBC % Seg Neutrophils # Seg Neutrophils # Man Lymphocytes # (Manual) Monocytes # (Manual) Eosinophils # (Manual) INR D-Dimer ABG pH POC ABG pCO2 POC ABG pO2 ABG pO2 69.0 L ABG HCO3 32.5 H ABG O2 Saturation ABG Base Excess 7.7 H ABG Hemoglobin 5.1 L ABG Oxyhemoglobin ABG Sodium ABG Potassium ABG Chloride ABG Glucose Oxyhemoglobin 94.7 L Carboxyhemoglobin Sodium Potassium Chloride Carbon Dioxide BUN Creatinine Glucose POC Glucose 165 H 153 H Hemoglobin A1c Lactic Acid Calcium Phosphorus Magnesium Ferritin Total Bilirubin AST ALT Lactate Dehydrogenase C-Reactive Protein Albumin Triglycerides Arterial Blood Glucose Arterial Blood Ionized Calcium Urine Creatinine Coronavirus (PCR) Crossmatch 02/12/21 02/12/21 02/12/21 06:35 06:35 08:40 WBC RBC 2.21 L Hgb 7.2 L Hct 20.7 L MCV MCH 33 H MCHC 35 H RDW Plt Count Lymph % (Auto) Lymph # (Auto) Seg Neutrophils % Seg Neuts % (Manual) Lymphocytes % (Manual) Monocytes % (Manual) Nucleated RBC % Seg Neutrophils # Seg Neutrophils # Man Lymphocytes # (Manual) Monocytes # (Manual) Eosinophils # (Manual) INR D-Dimer ABG pH POC ABG pCO2 POC ABG pO2 ABG pO2 ABG HCO3 ABG O2 Saturation ABG Base Excess ABG Hemoglobin ABG Oxyhemoglobin ABG Sodium ABG Potassium ABG Chloride ABG Glucose Oxyhemoglobin Carboxyhemoglobin Sodium 135 L Potassium 3.4 L Chloride 91.8 L Carbon Dioxide 36 H BUN 57 H Creatinine 6.8 H Glucose 163 H POC Glucose Hemoglobin A1c Lactic Acid Calcium 7.0 L Phosphorus Magnesium 1.60 L Ferritin Total Bilirubin AST ALT Lactate Dehydrogenase C-Reactive Protein Albumin Triglycerides Arterial Blood Glucose Arterial Blood Ionized Calcium Urine Creatinine Coronavirus (PCR) Crossmatch 02/12/21 02/12/21 02/12/21 10:45 12:04 17:19 WBC RBC Hgb Hct MCV MCH MCHC RDW Plt Count Lymph % (Auto) Lymph # (Auto) Seg Neutrophils % Seg Neuts % (Manual) Lymphocytes % (Manual) Monocytes % (Manual) Nucleated RBC % Seg Neutrophils # Seg Neutrophils # Man Lymphocytes # (Manual) Monocytes # (Manual) Eosinophils # (Manual) INR D-Dimer ABG pH POC ABG pCO2 POC ABG pO2 ABG pO2 ABG HCO3 ABG O2 Saturation ABG Base Excess ABG Hemoglobin ABG Oxyhemoglobin ABG Sodium ABG Potassium ABG Chloride ABG Glucose Oxyhemoglobin Carboxyhemoglobin Sodium Potassium Chloride Carbon Dioxide BUN Creatinine Glucose POC Glucose 165 H 165 H Hemoglobin A1c Lactic Acid Calcium Phosphorus Magnesium Ferritin Total Bilirubin AST ALT Lactate Dehydrogenase C-Reactive Protein Albumin Triglycerides 182 H Arterial Blood Glucose Arterial Blood Ionized Calcium Urine Creatinine Coronavirus (PCR) Crossmatch 02/12/21 02/13/21 02/13/21 23:18 05:00 05:36 WBC RBC Hgb Hct MCV MCH MCHC RDW Plt Count Lymph % (Auto) Lymph # (Auto) Seg Neutrophils % Seg Neuts % (Manual) Lymphocytes % (Manual) Monocytes % (Manual) Nucleated RBC % Seg Neutrophils # Seg Neutrophils # Man Lymphocytes # (Manual) Monocytes # (Manual) Eosinophils # (Manual) INR D-Dimer ABG pH POC ABG pCO2 60.8 H POC ABG pO2 76.4 L ABG pO2 ABG HCO3 ABG O2 Saturation ABG Base Excess ABG Hemoglobin 7.4 L ABG Oxyhemoglobin ABG Sodium 133.2 L ABG Potassium 3.3 L ABG Chloride 96.0 L ABG Glucose 168 H Oxyhemoglobin Carboxyhemoglobin Sodium Potassium Chloride Carbon Dioxide BUN Creatinine Glucose POC Glucose 163 H 151 H Hemoglobin A1c Lactic Acid Calcium Phosphorus Magnesium Ferritin Total Bilirubin AST ALT Lactate Dehydrogenase C-Reactive Protein Albumin Triglycerides Arterial Blood Glucose 168 H Arterial Blood Ionized Calcium 4.3 L Urine Creatinine Coronavirus (PCR) Crossmatch 02/13/21 02/13/21 02/13/21 06:40 06:40 06:40 WBC RBC 2.19 L Hgb 7.0 L Hct 20.8 L MCV 95 H MCH MCHC RDW Plt Count Lymph % (Auto) Lymph # (Auto) Seg Neutrophils % Seg Neuts % (Manual) Lymphocytes % (Manual) Monocytes % (Manual) Nucleated RBC % Seg Neutrophils # Seg Neutrophils # Man Lymphocytes # (Manual) Monocytes # (Manual) Eosinophils # (Manual) INR D-Dimer ABG pH POC ABG pCO2 POC ABG pO2 ABG pO2 ABG HCO3 ABG O2 Saturation ABG Base Excess ABG Hemoglobin ABG Oxyhemoglobin ABG Sodium ABG Potassium ABG Chloride ABG Glucose Oxyhemoglobin Carboxyhemoglobin Sodium 135 L Potassium 3.4 L Chloride 93.0 L Carbon Dioxide 32 H BUN 46 H Creatinine 5.8 H Glucose 148 H POC Glucose Hemoglobin A1c Lactic Acid Calcium 7.9 L Phosphorus Magnesium Ferritin Total Bilirubin AST ALT Lactate Dehydrogenase C-Reactive Protein 16.80 H Albumin Triglycerides Arterial Blood Glucose Arterial Blood Ionized Calcium Urine Creatinine Coronavirus (PCR) Crossmatch 02/13/21 02/13/21 02/13/21 06:40 07:38 07:38 WBC RBC Hgb Hct MCV MCH MCHC RDW Plt Count Lymph % (Auto) Lymph # (Auto) Seg Neutrophils % Seg Neuts % (Manual) Lymphocytes % (Manual) Monocytes % (Manual) Nucleated RBC % Seg Neutrophils # Seg Neutrophils # Man Lymphocytes # (Manual) Monocytes # (Manual) Eosinophils # (Manual) INR D-Dimer 1722.16 H ABG pH POC ABG pCO2 POC ABG pO2 ABG pO2 ABG HCO3 ABG O2 Saturation ABG Base Excess ABG Hemoglobin ABG Oxyhemoglobin ABG Sodium ABG Potassium ABG Chloride ABG Glucose Oxyhemoglobin Carboxyhemoglobin Sodium Potassium Chloride Carbon Dioxide BUN Creatinine Glucose POC Glucose Hemoglobin A1c Lactic Acid Calcium Phosphorus Magnesium 1.60 L Ferritin 976.5 H Total Bilirubin AST ALT Lactate Dehydrogenase C-Reactive Protein Albumin Triglycerides Arterial Blood Glucose Arterial Blood Ionized Calcium Urine Creatinine Coronavirus (PCR) Crossmatch 02/13/21 02/13/21 02/13/21 12:24 16:57 23:32 WBC RBC Hgb Hct MCV MCH MCHC RDW Plt Count Lymph % (Auto) Lymph # (Auto) Seg Neutrophils % Seg Neuts % (Manual) Lymphocytes % (Manual) Monocytes % (Manual) Nucleated RBC % Seg Neutrophils # Seg Neutrophils # Man Lymphocytes # (Manual) Monocytes # (Manual) Eosinophils # (Manual) INR D-Dimer ABG pH POC ABG pCO2 POC ABG pO2 ABG pO2 ABG HCO3 ABG O2 Saturation ABG Base Excess ABG Hemoglobin ABG Oxyhemoglobin ABG Sodium ABG Potassium ABG Chloride ABG Glucose Oxyhemoglobin Carboxyhemoglobin Sodium Potassium Chloride Carbon Dioxide BUN Creatinine Glucose POC Glucose 141 H 156 H 161 H Hemoglobin A1c Lactic Acid Calcium Phosphorus Magnesium Ferritin Total Bilirubin AST ALT Lactate Dehydrogenase C-Reactive Protein Albumin Triglycerides Arterial Blood Glucose Arterial Blood Ionized Calcium Urine Creatinine Coronavirus (PCR) Crossmatch 02/14/21 02/14/21 02/14/21 04:00 05:41 11:00 WBC RBC 2.14 L Hgb 6.9 L Hct 20.7 L MCV 97 H MCH 33 H MCHC RDW Plt Count Lymph % (Auto) Lymph # (Auto) Seg Neutrophils % Seg Neuts % (Manual) Lymphocytes % (Manual) Monocytes % (Manual) Nucleated RBC % Seg Neutrophils # Seg Neutrophils # Man Lymphocytes # (Manual) Monocytes # (Manual) Eosinophils # (Manual) INR D-Dimer ABG pH POC ABG pCO2 POC ABG pO2 ABG pO2 ABG HCO3 ABG O2 Saturation ABG Base Excess ABG Hemoglobin ABG Oxyhemoglobin ABG Sodium ABG Potassium ABG Chloride ABG Glucose Oxyhemoglobin Carboxyhemoglobin Sodium Potassium Chloride Carbon Dioxide BUN Creatinine Glucose POC Glucose 143 H Hemoglobin A1c Lactic Acid Calcium Phosphorus Magnesium Ferritin Total Bilirubin AST ALT Lactate Dehydrogenase C-Reactive Protein Albumin Triglycerides Arterial Blood Glucose Arterial Blood Ionized Calcium Urine Creatinine Coronavirus (PCR) Crossmatch See Detail 02/14/21 02/14/21 02/14/21 11:51 18:08 23:41 WBC RBC Hgb Hct MCV MCH MCHC RDW Plt Count Lymph % (Auto) Lymph # (Auto) Seg Neutrophils % Seg Neuts % (Manual) Lymphocytes % (Manual) Monocytes % (Manual) Nucleated RBC % Seg Neutrophils # Seg Neutrophils # Man Lymphocytes # (Manual) Monocytes # (Manual) Eosinophils # (Manual) INR D-Dimer ABG pH POC ABG pCO2 POC ABG pO2 ABG pO2 ABG HCO3 ABG O2 Saturation ABG Base Excess ABG Hemoglobin ABG Oxyhemoglobin ABG Sodium ABG Potassium ABG Chloride ABG Glucose Oxyhemoglobin Carboxyhemoglobin Sodium Potassium Chloride Carbon Dioxide BUN Creatinine Glucose POC Glucose 113 H 123 H 120 H Hemoglobin A1c Lactic Acid Calcium Phosphorus Magnesium Ferritin Total Bilirubin AST ALT Lactate Dehydrogenase C-Reactive Protein Albumin Triglycerides Arterial Blood Glucose Arterial Blood Ionized Calcium Urine Creatinine Coronavirus (PCR) Crossmatch 02/14/21 02/15/21 02/15/21 Unknown 05:00 05:00 WBC RBC Hgb Hct MCV MCH MCHC RDW Plt Count Lymph % (Auto) Lymph # (Auto) Seg Neutrophils % Seg Neuts % (Manual) Lymphocytes % (Manual) Monocytes % (Manual) Nucleated RBC % Seg Neutrophils # Seg Neutrophils # Man Lymphocytes # (Manual) Monocytes # (Manual) Eosinophils # (Manual) INR D-Dimer ABG pH POC ABG pCO2 53.4 H POC ABG pO2 61.8 L ABG pO2 ABG HCO3 ABG O2 Saturation ABG Base Excess ABG Hemoglobin 7.7 L ABG Oxyhemoglobin 88.8 L ABG Sodium ABG Potassium ABG Chloride ABG Glucose 143 H Oxyhemoglobin Carboxyhemoglobin 1.6 H Sodium Potassium Chloride 96.9 L Carbon Dioxide 33 H 31 H BUN 40 H 38 H Creatinine 5.2 H 4.8 H Glucose 152 H 132 H POC Glucose Hemoglobin A1c Lactic Acid Calcium 7.9 L Phosphorus Magnesium Ferritin Total Bilirubin AST ALT Lactate Dehydrogenase C-Reactive Protein Albumin Triglycerides Arterial Blood Glucose 143 H Arterial Blood Ionized Calcium Urine Creatinine Coronavirus (PCR) Crossmatch 02/15/21 02/15/21 02/15/21 05:00 05:27 12:05 WBC RBC 2.30 L Hgb 7.1 L Hct 22.1 L MCV 96 H MCH MCHC RDW 15.7 H Plt Count Lymph % (Auto) 11.0 L Lymph # (Auto) 1.1 L Seg Neutrophils % 83.0 H Seg Neuts % (Manual) Lymphocytes % (Manual) Monocytes % (Manual) Nucleated RBC % Seg Neutrophils # 8.6 H Seg Neutrophils # Man Lymphocytes # (Manual) Monocytes # (Manual) Eosinophils # (Manual) INR D-Dimer ABG pH POC ABG pCO2 POC ABG pO2 ABG pO2 ABG HCO3 ABG O2 Saturation ABG Base Excess ABG Hemoglobin ABG Oxyhemoglobin ABG Sodium ABG Potassium ABG Chloride ABG Glucose Oxyhemoglobin Carboxyhemoglobin Sodium Potassium Chloride Carbon Dioxide BUN Creatinine Glucose POC Glucose 133 H 123 H Hemoglobin A1c Lactic Acid Calcium Phosphorus Magnesium Ferritin Total Bilirubin AST ALT Lactate Dehydrogenase C-Reactive Protein Albumin Triglycerides Arterial Blood Glucose Arterial Blood Ionized Calcium Urine Creatinine Coronavirus (PCR) Crossmatch 02/15/21 02/15/21 02/16/21 17:08 23:52 03:44 WBC RBC Hgb Hct MCV MCH MCHC RDW Plt Count Lymph % (Auto) Lymph # (Auto) Seg Neutrophils % Seg Neuts % (Manual) Lymphocytes % (Manual) Monocytes % (Manual) Nucleated RBC % Seg Neutrophils # Seg Neutrophils # Man Lymphocytes # (Manual) Monocytes # (Manual) Eosinophils # (Manual) INR D-Dimer ABG pH 7.307 L POC ABG pCO2 59.5 H POC ABG pO2 63.2 L ABG pO2 ABG HCO3 ABG O2 Saturation ABG Base Excess ABG Hemoglobin 9.3 L ABG Oxyhemoglobin ABG Sodium ABG Potassium ABG Chloride ABG Glucose 148 H Oxyhemoglobin Carboxyhemoglobin Sodium Potassium Chloride Carbon Dioxide BUN Creatinine Glucose POC Glucose 129 H 136 H Hemoglobin A1c Lactic Acid Calcium Phosphorus Magnesium Ferritin Total Bilirubin AST ALT Lactate Dehydrogenase C-Reactive Protein Albumin Triglycerides Arterial Blood Glucose 148 H Arterial Blood Ionized Calcium Urine Creatinine Coronavirus (PCR) Crossmatch 02/16/21 02/16/21 02/16/21 05:26 06:00 12:14 WBC RBC Hgb Hct MCV MCH MCHC RDW Plt Count Lymph % (Auto) Lymph # (Auto) Seg Neutrophils % Seg Neuts % (Manual) Lymphocytes % (Manual) Monocytes % (Manual) Nucleated RBC % Seg Neutrophils # Seg Neutrophils # Man Lymphocytes # (Manual) Monocytes # (Manual) Eosinophils # (Manual) INR D-Dimer ABG pH POC ABG pCO2 POC ABG pO2 ABG pO2 ABG HCO3 ABG O2 Saturation ABG Base Excess ABG Hemoglobin ABG Oxyhemoglobin ABG Sodium ABG Potassium ABG Chloride ABG Glucose Oxyhemoglobin Carboxyhemoglobin Sodium Potassium Chloride Carbon Dioxide BUN 52 H Creatinine 6.0 H Glucose 138 H POC Glucose 135 H 128 H Hemoglobin A1c Lactic Acid Calcium Phosphorus Magnesium Ferritin Total Bilirubin AST ALT Lactate Dehydrogenase C-Reactive Protein Albumin Triglycerides Arterial Blood Glucose Arterial Blood Ionized Calcium Urine Creatinine Coronavirus (PCR) Crossmatch 02/16/21 02/16/21 02/16/21 17:09 17:09 17:09 WBC RBC Hgb Hct MCV MCH MCHC RDW Plt Count Lymph % (Auto) Lymph # (Auto) Seg Neutrophils % Seg Neuts % (Manual) Lymphocytes % (Manual) Monocytes % (Manual) Nucleated RBC % Seg Neutrophils # Seg Neutrophils # Man Lymphocytes # (Manual) Monocytes # (Manual) Eosinophils # (Manual) INR D-Dimer 4256.08 H ABG pH POC ABG pCO2 POC ABG pO2 ABG pO2 ABG HCO3 ABG O2 Saturation ABG Base Excess ABG Hemoglobin ABG Oxyhemoglobin ABG Sodium ABG Potassium ABG Chloride ABG Glucose Oxyhemoglobin Carboxyhemoglobin Sodium Potassium Chloride Carbon Dioxide BUN Creatinine Glucose POC Glucose Hemoglobin A1c Lactic Acid Calcium Phosphorus Magnesium Ferritin 980.6 H Total Bilirubin AST ALT Lactate Dehydrogenase 441 H C-Reactive Protein 20.20 H Albumin Triglycerides Arterial Blood Glucose Arterial Blood Ionized Calcium Urine Creatinine Coronavirus (PCR) Crossmatch 02/16/21 02/16/21 02/16/21 17:25 23:16 Unknown WBC RBC 2.19 L Hgb 7.1 L Hct 21.3 L MCV 98 H MCH 33 H MCHC RDW 16.0 H Plt Count Lymph % (Auto) Lymph # (Auto) Seg Neutrophils % Seg Neuts % (Manual) 85.0 H Lymphocytes % (Manual) 6.0 L Monocytes % (Manual) Nucleated RBC % 4.0 H Seg Neutrophils # Seg Neutrophils # Man Lymphocytes # (Manual) 0.5 L Monocytes # (Manual) Eosinophils # (Manual) INR D-Dimer ABG pH POC ABG pCO2 POC ABG pO2 ABG pO2 ABG HCO3 ABG O2 Saturation ABG Base Excess ABG Hemoglobin ABG Oxyhemoglobin ABG Sodium ABG Potassium ABG Chloride ABG Glucose Oxyhemoglobin Carboxyhemoglobin Sodium Potassium Chloride Carbon Dioxide BUN Creatinine Glucose POC Glucose 146 H 150 H Hemoglobin A1c Lactic Acid Calcium Phosphorus Magnesium Ferritin Total Bilirubin AST ALT Lactate Dehydrogenase C-Reactive Protein Albumin Triglycerides Arterial Blood Glucose Arterial Blood Ionized Calcium Urine Creatinine Coronavirus (PCR) Crossmatch 02/17/21 02/17/21 02/17/21 04:00 04:14 04:14 WBC RBC Hgb Hct MCV MCH MCHC RDW Plt Count Lymph % (Auto) Lymph # (Auto) Seg Neutrophils % Seg Neuts % (Manual) Lymphocytes % (Manual) Monocytes % (Manual) Nucleated RBC % Seg Neutrophils # Seg Neutrophils # Man Lymphocytes # (Manual) Monocytes # (Manual) Eosinophils # (Manual) INR D-Dimer 3183.35 H ABG pH 7.293 L POC ABG pCO2 59.5 H POC ABG pO2 68.1 L ABG pO2 ABG HCO3 ABG O2 Saturation ABG Base Excess ABG Hemoglobin 7.7 L ABG Oxyhemoglobin ABG Sodium 133.4 L ABG Potassium ABG Chloride ABG Glucose 143 H Oxyhemoglobin Carboxyhemoglobin Sodium 136 L Potassium Chloride 97.3 L Carbon Dioxide BUN 49 H Creatinine 5.3 H Glucose 139 H POC Glucose Hemoglobin A1c Lactic Acid Calcium Phosphorus Magnesium Ferritin Total Bilirubin AST ALT Lactate Dehydrogenase C-Reactive Protein Albumin Triglycerides Arterial Blood Glucose 143 H Arterial Blood Ionized Calcium Urine Creatinine Coronavirus (PCR) Crossmatch 02/17/21 02/17/21 02/17/21 04:14 04:14 04:14 WBC RBC 2.14 L Hgb 6.9 L Hct 21.0 L MCV 98 H MCH MCHC RDW 15.8 H Plt Count Lymph % (Auto) Lymph # (Auto) Seg Neutrophils % Seg Neuts % (Manual) Lymphocytes % (Manual) Monocytes % (Manual) Nucleated RBC % Seg Neutrophils # Seg Neutrophils # Man Lymphocytes # (Manual) Monocytes # (Manual) Eosinophils # (Manual) INR D-Dimer ABG pH POC ABG pCO2 POC ABG pO2 ABG pO2 ABG HCO3 ABG O2 Saturation ABG Base Excess ABG Hemoglobin ABG Oxyhemoglobin ABG Sodium ABG Potassium ABG Chloride ABG Glucose Oxyhemoglobin Carboxyhemoglobin Sodium Potassium Chloride Carbon Dioxide BUN Creatinine Glucose POC Glucose Hemoglobin A1c Lactic Acid Calcium Phosphorus Magnesium Ferritin 894.0 H Total Bilirubin AST ALT Lactate Dehydrogenase 399 H C-Reactive Protein 22.10 H Albumin Triglycerides Arterial Blood Glucose Arterial Blood Ionized Calcium Urine Creatinine Coronavirus (PCR) Crossmatch 02/17/21 02/17/21 02/17/21 06:06 07:45 12:25 WBC RBC Hgb 7.6 L Hct 22.8 L MCV MCH MCHC RDW Plt Count Lymph % (Auto) Lymph # (Auto) Seg Neutrophils % Seg Neuts % (Manual) Lymphocytes % (Manual) Monocytes % (Manual) Nucleated RBC % Seg Neutrophils # Seg Neutrophils # Man Lymphocytes # (Manual) Monocytes # (Manual) Eosinophils # (Manual) INR D-Dimer ABG pH POC ABG pCO2 POC ABG pO2 ABG pO2 ABG HCO3 ABG O2 Saturation ABG Base Excess ABG Hemoglobin ABG Oxyhemoglobin ABG Sodium ABG Potassium ABG Chloride ABG Glucose Oxyhemoglobin Carboxyhemoglobin Sodium Potassium Chloride Carbon Dioxide BUN Creatinine Glucose POC Glucose 134 H Hemoglobin A1c Lactic Acid Calcium Phosphorus Magnesium Ferritin Total Bilirubin AST ALT Lactate Dehydrogenase C-Reactive Protein Albumin Triglycerides Arterial Blood Glucose Arterial Blood Ionized Calcium Urine Creatinine Coronavirus (PCR) Crossmatch See Detail 02/17/21 02/17/21 02/17/21 12:35 17:56 23:34 WBC RBC Hgb Hct MCV MCH MCHC RDW Plt Count Lymph % (Auto) Lymph # (Auto) Seg Neutrophils % Seg Neuts % (Manual) Lymphocytes % (Manual) Monocytes % (Manual) Nucleated RBC % Seg Neutrophils # Seg Neutrophils # Man Lymphocytes # (Manual) Monocytes # (Manual) Eosinophils # (Manual) INR D-Dimer ABG pH POC ABG pCO2 POC ABG pO2 ABG pO2 ABG HCO3 ABG O2 Saturation ABG Base Excess ABG Hemoglobin ABG Oxyhemoglobin ABG Sodium ABG Potassium ABG Chloride ABG Glucose Oxyhemoglobin Carboxyhemoglobin Sodium Potassium Chloride Carbon Dioxide BUN Creatinine Glucose POC Glucose 114 H 128 H 120 H Hemoglobin A1c Lactic Acid Calcium Phosphorus Magnesium Ferritin Total Bilirubin AST ALT Lactate Dehydrogenase C-Reactive Protein Albumin Triglycerides Arterial Blood Glucose Arterial Blood Ionized Calcium Urine Creatinine Coronavirus (PCR) Crossmatch 02/18/21 02/18/21 02/18/21 04:03 04:55 05:02 WBC RBC 2.40 L Hgb 7.5 L Hct 23.1 L MCV 96 H MCH MCHC RDW 16.8 H Plt Count Lymph % (Auto) Lymph # (Auto) Seg Neutrophils % Seg Neuts % (Manual) Lymphocytes % (Manual) Monocytes % (Manual) Nucleated RBC % Seg Neutrophils # Seg Neutrophils # Man Lymphocytes # (Manual) Monocytes # (Manual) Eosinophils # (Manual) INR D-Dimer ABG pH 7.219 L POC ABG pCO2 58.7 H POC ABG pO2 64.2 L ABG pO2 ABG HCO3 ABG O2 Saturation ABG Base Excess ABG Hemoglobin ABG Oxyhemoglobin ABG Sodium 130.5 L ABG Potassium ABG Chloride ABG Glucose 147 H Oxyhemoglobin Carboxyhemoglobin Sodium 134 L Potassium Chloride 97.9 L Carbon Dioxide BUN 64 H Creatinine 6.5 H Glucose 135 H POC Glucose Hemoglobin A1c Lactic Acid Calcium 8.0 L Phosphorus Magnesium Ferritin Total Bilirubin AST ALT Lactate Dehydrogenase C-Reactive Protein Albumin Triglycerides Arterial Blood Glucose 147 H Arterial Blood Ionized Calcium Urine Creatinine Coronavirus (PCR) Crossmatch 02/18/21 02/18/21 02/18/21 05:27 10:00 11:51 WBC RBC Hgb Hct MCV MCH MCHC RDW Plt Count Lymph % (Auto) Lymph # (Auto) Seg Neutrophils % Seg Neuts % (Manual) Lymphocytes % (Manual) Monocytes % (Manual) Nucleated RBC % Seg Neutrophils # Seg Neutrophils # Man Lymphocytes # (Manual) Monocytes # (Manual) Eosinophils # (Manual) INR D-Dimer ABG pH POC ABG pCO2 POC ABG pO2 ABG pO2 ABG HCO3 ABG O2 Saturation ABG Base Excess ABG Hemoglobin ABG Oxyhemoglobin ABG Sodium ABG Potassium ABG Chloride ABG Glucose Oxyhemoglobin Carboxyhemoglobin Sodium Potassium Chloride Carbon Dioxide BUN Creatinine Glucose POC Glucose 130 H 123 H Hemoglobin A1c Lactic Acid Calcium Phosphorus Magnesium Ferritin Total Bilirubin AST ALT Lactate Dehydrogenase C-Reactive Protein Albumin Triglycerides Arterial Blood Glucose Arterial Blood Ionized Calcium Urine Creatinine Coronavirus (PCR) Positive A Crossmatch 02/18/21 02/18/21 02/19/21 18:10 23:35 05:00 WBC RBC Hgb Hct MCV MCH MCHC RDW Plt Count Lymph % (Auto) Lymph # (Auto) Seg Neutrophils % Seg Neuts % (Manual) Lymphocytes % (Manual) Monocytes % (Manual) Nucleated RBC % Seg Neutrophils # Seg Neutrophils # Man Lymphocytes # (Manual) Monocytes # (Manual) Eosinophils # (Manual) INR D-Dimer ABG pH 7.232 L POC ABG pCO2 64.3 H POC ABG pO2 ABG pO2 ABG HCO3 ABG O2 Saturation ABG Base Excess ABG Hemoglobin 8.1 L ABG Oxyhemoglobin ABG Sodium 133.5 L ABG Potassium ABG Chloride ABG Glucose 148 H Oxyhemoglobin Carboxyhemoglobin 1.6 H Sodium Potassium Chloride Carbon Dioxide BUN Creatinine Glucose POC Glucose 123 H 137 H Hemoglobin A1c Lactic Acid Calcium Phosphorus Magnesium Ferritin Total Bilirubin AST ALT Lactate Dehydrogenase C-Reactive Protein Albumin Triglycerides Arterial Blood Glucose 148 H Arterial Blood Ionized Calcium Urine Creatinine Coronavirus (PCR) Crossmatch 02/19/21 02/19/21 02/19/21 05:12 05:45 05:45 WBC RBC Hgb Hct MCV MCH MCHC RDW Plt Count Lymph % (Auto) Lymph # (Auto) Seg Neutrophils % Seg Neuts % (Manual) Lymphocytes % (Manual) Monocytes % (Manual) Nucleated RBC % Seg Neutrophils # Seg Neutrophils # Man Lymphocytes # (Manual) Monocytes # (Manual) Eosinophils # (Manual) INR D-Dimer 4840.82 H ABG pH POC ABG pCO2 POC ABG pO2 ABG pO2 ABG HCO3 ABG O2 Saturation ABG Base Excess ABG Hemoglobin ABG Oxyhemoglobin ABG Sodium ABG Potassium ABG Chloride ABG Glucose Oxyhemoglobin Carboxyhemoglobin Sodium 135 L Potassium Chloride 97.8 L Carbon Dioxide BUN 58 H Creatinine 5.6 H Glucose 140 H POC Glucose 134 H Hemoglobin A1c Lactic Acid Calcium Phosphorus Magnesium Ferritin Total Bilirubin AST ALT Lactate Dehydrogenase 345 H C-Reactive Protein 15.20 H Albumin Triglycerides 195 H Arterial Blood Glucose Arterial Blood Ionized Calcium Urine Creatinine Coronavirus (PCR) Crossmatch 02/19/21 02/19/21 02/19/21 05:45 12:00 17:48 WBC RBC Hgb Hct MCV MCH MCHC RDW Plt Count Lymph % (Auto) Lymph # (Auto) Seg Neutrophils % Seg Neuts % (Manual) Lymphocytes % (Manual) Monocytes % (Manual) Nucleated RBC % Seg Neutrophils # Seg Neutrophils # Man Lymphocytes # (Manual) Monocytes # (Manual) Eosinophils # (Manual) INR D-Dimer ABG pH POC ABG pCO2 POC ABG pO2 ABG pO2 ABG HCO3 ABG O2 Saturation ABG Base Excess ABG Hemoglobin ABG Oxyhemoglobin ABG Sodium ABG Potassium ABG Chloride ABG Glucose Oxyhemoglobin Carboxyhemoglobin Sodium Potassium Chloride Carbon Dioxide BUN Creatinine Glucose POC Glucose 122 H 119 H Hemoglobin A1c Lactic Acid Calcium Phosphorus Magnesium Ferritin 951.8 H Total Bilirubin AST ALT Lactate Dehydrogenase C-Reactive Protein Albumin Triglycerides Arterial Blood Glucose Arterial Blood Ionized Calcium Urine Creatinine Coronavirus (PCR) Crossmatch 02/20/21 02/20/21 02/20/21 03:20 04:00 11:48 WBC RBC Hgb Hct MCV MCH MCHC RDW Plt Count Lymph % (Auto) Lymph # (Auto) Seg Neutrophils % Seg Neuts % (Manual) Lymphocytes % (Manual) Monocytes % (Manual) Nucleated RBC % Seg Neutrophils # Seg Neutrophils # Man Lymphocytes # (Manual) Monocytes # (Manual) Eosinophils # (Manual) INR D-Dimer ABG pH 7.276 L POC ABG pCO2 57.3 H POC ABG pO2 71.0 L ABG pO2 ABG HCO3 ABG O2 Saturation ABG Base Excess ABG Hemoglobin 8.2 L ABG Oxyhemoglobin 91.9 L ABG Sodium 128.1 L ABG Potassium 4.8 H ABG Chloride ABG Glucose Oxyhemoglobin Carboxyhemoglobin 1.6 H Sodium 136 L Potassium Chloride Carbon Dioxide BUN 69 H Creatinine 6.4 H Glucose POC Glucose 131 H Hemoglobin A1c Lactic Acid Calcium 8.1 L Phosphorus Magnesium Ferritin Total Bilirubin AST ALT Lactate Dehydrogenase C-Reactive Protein Albumin Triglycerides Arterial Blood Glucose Arterial Blood Ionized Calcium 4.5 L Urine Creatinine Coronavirus (PCR) Crossmatch 02/20/21 02/20/21 02/21/21 18:05 23:28 02:53 WBC RBC Hgb Hct MCV MCH MCHC RDW Plt Count Lymph % (Auto) Lymph # (Auto) Seg Neutrophils % Seg Neuts % (Manual) Lymphocytes % (Manual) Monocytes % (Manual) Nucleated RBC % Seg Neutrophils # Seg Neutrophils # Man Lymphocytes # (Manual) Monocytes # (Manual) Eosinophils # (Manual) INR D-Dimer ABG pH 7.288 L POC ABG pCO2 52.7 H POC ABG pO2 81.5 L ABG pO2 ABG HCO3 ABG O2 Saturation ABG Base Excess ABG Hemoglobin 8.5 L ABG Oxyhemoglobin 93.6 L ABG Sodium 132.5 L ABG Potassium 4.6 H ABG Chloride ABG Glucose 106 H Oxyhemoglobin Carboxyhemoglobin 1.6 H Sodium Potassium Chloride Carbon Dioxide BUN Creatinine Glucose POC Glucose 114 H 118 H Hemoglobin A1c Lactic Acid Calcium Phosphorus Magnesium Ferritin Total Bilirubin AST ALT Lactate Dehydrogenase C-Reactive Protein Albumin Triglycerides Arterial Blood Glucose 106 H Arterial Blood Ionized Calcium 4.4 L Urine Creatinine Coronavirus (PCR) Crossmatch 02/21/21 02/21/21 02/21/21 05:29 11:42 16:35 WBC RBC Hgb Hct MCV MCH MCHC RDW Plt Count Lymph % (Auto) Lymph # (Auto) Seg Neutrophils % Seg Neuts % (Manual) Lymphocytes % (Manual) Monocytes % (Manual) Nucleated RBC % Seg Neutrophils # Seg Neutrophils # Man Lymphocytes # (Manual) Monocytes # (Manual) Eosinophils # (Manual) INR D-Dimer ABG pH POC ABG pCO2 POC ABG pO2 ABG pO2 ABG HCO3 ABG O2 Saturation ABG Base Excess ABG Hemoglobin ABG Oxyhemoglobin ABG Sodium ABG Potassium ABG Chloride ABG Glucose Oxyhemoglobin Carboxyhemoglobin Sodium Potassium 5.6 H Chloride 97.6 L Carbon Dioxide BUN 68 H Creatinine 5.7 H Glucose 160 H POC Glucose 111 H 131 H Hemoglobin A1c Lactic Acid Calcium 8.0 L Phosphorus 7.90 H Magnesium 2.60 H Ferritin Total Bilirubin AST ALT Lactate Dehydrogenase C-Reactive Protein Albumin Triglycerides Arterial Blood Glucose Arterial Blood Ionized Calcium Urine Creatinine Coronavirus (PCR) Crossmatch 02/21/21 02/22/21 02/22/21 17:17 00:04 04:22 WBC RBC Hgb Hct MCV MCH MCHC RDW Plt Count Lymph % (Auto) Lymph # (Auto) Seg Neutrophils % Seg Neuts % (Manual) Lymphocytes % (Manual) Monocytes % (Manual) Nucleated RBC % Seg Neutrophils # Seg Neutrophils # Man Lymphocytes # (Manual) Monocytes # (Manual) Eosinophils # (Manual) INR D-Dimer ABG pH 7.250 L POC ABG pCO2 60.1 H POC ABG pO2 57.6 L ABG pO2 ABG HCO3 ABG O2 Saturation ABG Base Excess ABG Hemoglobin 8.8 L ABG Oxyhemoglobin 87.0 L ABG Sodium 133.4 L ABG Potassium 5.1 H ABG Chloride ABG Glucose 124 H Oxyhemoglobin Carboxyhemoglobin Sodium Potassium Chloride Carbon Dioxide BUN Creatinine Glucose POC Glucose 135 H 121 H Hemoglobin A1c Lactic Acid Calcium Phosphorus Magnesium Ferritin Total Bilirubin AST ALT Lactate Dehydrogenase C-Reactive Protein Albumin Triglycerides Arterial Blood Glucose 124 H Arterial Blood Ionized Calcium Urine Creatinine Coronavirus (PCR) Crossmatch 02/22/21 02/22/21 02/22/21 05:33 09:41 09:41 WBC 13.2 H RBC 2.35 L Hgb 7.5 L Hct 22.7 L MCV 96 H MCH MCHC RDW 17.0 H Plt Count Lymph % (Auto) Lymph # (Auto) Seg Neutrophils % Seg Neuts % (Manual) 93.0 H Lymphocytes % (Manual) 4.0 L Monocytes % (Manual) Nucleated RBC % 1.0 H Seg Neutrophils # Seg Neutrophils # Man 12.3 H Lymphocytes # (Manual) 0.5 L Monocytes # (Manual) Eosinophils # (Manual) INR D-Dimer ABG pH POC ABG pCO2 POC ABG pO2 ABG pO2 ABG HCO3 ABG O2 Saturation ABG Base Excess ABG Hemoglobin ABG Oxyhemoglobin ABG Sodium ABG Potassium ABG Chloride ABG Glucose Oxyhemoglobin Carboxyhemoglobin Sodium Potassium 5.4 H Chloride Carbon Dioxide BUN 61 H Creatinine 5.5 H Glucose 117 H POC Glucose 114 H Hemoglobin A1c Lactic Acid Calcium 8.3 L Phosphorus Magnesium Ferritin Total Bilirubin AST ALT Lactate Dehydrogenase C-Reactive Protein Albumin Triglycerides Arterial Blood Glucose Arterial Blood Ionized Calcium Urine Creatinine Coronavirus (PCR) Crossmatch 02/22/21 02/22/21 02/23/21 12:08 17:06 04:00 WBC RBC Hgb Hct MCV MCH MCHC RDW Plt Count Lymph % (Auto) Lymph # (Auto) Seg Neutrophils % Seg Neuts % (Manual) Lymphocytes % (Manual) Monocytes % (Manual) Nucleated RBC % Seg Neutrophils # Seg Neutrophils # Man Lymphocytes # (Manual) Monocytes # (Manual) Eosinophils # (Manual) INR D-Dimer ABG pH 7.246 L POC ABG pCO2 POC ABG pO2 ABG pO2 119.4 H ABG HCO3 26.6 H ABG O2 Saturation ABG Base Excess ABG Hemoglobin 8.8 L ABG Oxyhemoglobin ABG Sodium ABG Potassium ABG Chloride ABG Glucose Oxyhemoglobin Carboxyhemoglobin Sodium Potassium Chloride Carbon Dioxide BUN Creatinine Glucose POC Glucose 133 H 114 H Hemoglobin A1c Lactic Acid Calcium Phosphorus Magnesium Ferritin Total Bilirubin AST ALT Lactate Dehydrogenase C-Reactive Protein Albumin Triglycerides Arterial Blood Glucose Arterial Blood Ionized Calcium Urine Creatinine Coronavirus (PCR) Crossmatch 02/23/21 02/23/21 02/24/21 06:20 11:42 03:43 WBC RBC Hgb Hct MCV MCH MCHC RDW Plt Count Lymph % (Auto) Lymph # (Auto) Seg Neutrophils % Seg Neuts % (Manual) Lymphocytes % (Manual) Monocytes % (Manual) Nucleated RBC % Seg Neutrophils # Seg Neutrophils # Man Lymphocytes # (Manual) Monocytes # (Manual) Eosinophils # (Manual) INR D-Dimer ABG pH 7.287 L POC ABG pCO2 54.7 H POC ABG pO2 ABG pO2 ABG HCO3 ABG O2 Saturation ABG Base Excess ABG Hemoglobin 8.5 L ABG Oxyhemoglobin ABG Sodium 135.6 L ABG Potassium ABG Chloride ABG Glucose 117 H Oxyhemoglobin Carboxyhemoglobin Sodium Potassium Chloride 97.6 L Carbon Dioxide BUN 79 H Creatinine 6.2 H Glucose POC Glucose 108 H Hemoglobin A1c Lactic Acid Calcium 8.3 L Phosphorus Magnesium Ferritin Total Bilirubin AST ALT Lactate Dehydrogenase C-Reactive Protein Albumin Triglycerides Arterial Blood Glucose 117 H Arterial Blood Ionized Calcium Urine Creatinine Coronavirus (PCR) Crossmatch 02/24/21 02/24/21 02/24/21 04:25 04:25 04:25 WBC 11.5 H RBC 2.47 L Hgb 7.7 L Hct 23.5 L MCV 95 H MCH MCHC RDW 16.7 H Plt Count Lymph % (Auto) Lymph # (Auto) Seg Neutrophils % Seg Neuts % (Manual) 82.0 H Lymphocytes % (Manual) 3.0 L Monocytes % (Manual) 11.0 H Nucleated RBC % Seg Neutrophils # Seg Neutrophils # Man 9.4 H Lymphocytes # (Manual) 0.3 L Monocytes # (Manual) 1.3 H Eosinophils # (Manual) INR D-Dimer 4695.21 H ABG pH POC ABG pCO2 POC ABG pO2 ABG pO2 ABG HCO3 ABG O2 Saturation ABG Base Excess ABG Hemoglobin ABG Oxyhemoglobin ABG Sodium ABG Potassium ABG Chloride ABG Glucose Oxyhemoglobin Carboxyhemoglobin Sodium Potassium Chloride Carbon Dioxide BUN 68 H Creatinine 4.9 H Glucose 113 H POC Glucose Hemoglobin A1c Lactic Acid Calcium Phosphorus Magnesium Ferritin Total Bilirubin AST ALT Lactate Dehydrogenase C-Reactive Protein 7.20 H Albumin Triglycerides Arterial Blood Glucose Arterial Blood Ionized Calcium Urine Creatinine Coronavirus (PCR) Crossmatch 02/24/21 02/24/21 02/24/21 04:25 05:01 11:12 WBC RBC Hgb Hct MCV MCH MCHC RDW Plt Count Lymph % (Auto) Lymph # (Auto) Seg Neutrophils % Seg Neuts % (Manual) Lymphocytes % (Manual) Monocytes % (Manual) Nucleated RBC % Seg Neutrophils # Seg Neutrophils # Man Lymphocytes # (Manual) Monocytes # (Manual) Eosinophils # (Manual) INR D-Dimer ABG pH POC ABG pCO2 POC ABG pO2 ABG pO2 ABG HCO3 ABG O2 Saturation ABG Base Excess ABG Hemoglobin ABG Oxyhemoglobin ABG Sodium ABG Potassium ABG Chloride ABG Glucose Oxyhemoglobin Carboxyhemoglobin Sodium Potassium Chloride Carbon Dioxide BUN Creatinine Glucose POC Glucose 116 H 112 H Hemoglobin A1c Lactic Acid Calcium Phosphorus Magnesium Ferritin 1116.0 H Total Bilirubin AST ALT Lactate Dehydrogenase C-Reactive Protein Albumin Triglycerides Arterial Blood Glucose Arterial Blood Ionized Calcium Urine Creatinine Coronavirus (PCR) Crossmatch 02/24/21 02/25/21 02/25/21 18:11 03:42 05:58 WBC RBC Hgb Hct MCV MCH MCHC RDW Plt Count Lymph % (Auto) Lymph # (Auto) Seg Neutrophils % Seg Neuts % (Manual) Lymphocytes % (Manual) Monocytes % (Manual) Nucleated RBC % Seg Neutrophils # Seg Neutrophils # Man Lymphocytes # (Manual) Monocytes # (Manual) Eosinophils # (Manual) INR D-Dimer ABG pH 7.287 L POC ABG pCO2 58.2 H POC ABG pO2 ABG pO2 ABG HCO3 ABG O2 Saturation ABG Base Excess ABG Hemoglobin 8.4 L ABG Oxyhemoglobin 93.7 L ABG Sodium ABG Potassium ABG Chloride ABG Glucose 104 H Oxyhemoglobin Carboxyhemoglobin Sodium Potassium Chloride Carbon Dioxide BUN Creatinine Glucose POC Glucose 109 H 109 H Hemoglobin A1c Lactic Acid Calcium Phosphorus Magnesium Ferritin Total Bilirubin AST ALT Lactate Dehydrogenase C-Reactive Protein Albumin Triglycerides Arterial Blood Glucose 104 H Arterial Blood Ionized Calcium 4.5 L Urine Creatinine Coronavirus (PCR) Crossmatch 02/25/21 02/25/21 02/25/21 09:03 13:47 16:50 WBC RBC Hgb Hct MCV MCH MCHC RDW Plt Count Lymph % (Auto) Lymph # (Auto) Seg Neutrophils % Seg Neuts % (Manual) Lymphocytes % (Manual) Monocytes % (Manual) Nucleated RBC % Seg Neutrophils # Seg Neutrophils # Man Lymphocytes # (Manual) Monocytes # (Manual) Eosinophils # (Manual) INR D-Dimer 6536.84 H ABG pH POC ABG pCO2 POC ABG pO2 ABG pO2 ABG HCO3 ABG O2 Saturation ABG Base Excess ABG Hemoglobin ABG Oxyhemoglobin ABG Sodium ABG Potassium ABG Chloride ABG Glucose Oxyhemoglobin Carboxyhemoglobin Sodium Potassium Chloride Carbon Dioxide BUN Creatinine Glucose POC Glucose 144 H 114 H Hemoglobin A1c Lactic Acid Calcium Phosphorus Magnesium Ferritin Total Bilirubin AST ALT Lactate Dehydrogenase C-Reactive Protein Albumin Triglycerides Arterial Blood Glucose Arterial Blood Ionized Calcium Urine Creatinine Coronavirus (PCR) Crossmatch 02/25/21 02/26/21 02/26/21 23:53 03:35 05:36 WBC RBC Hgb Hct MCV MCH MCHC RDW Plt Count Lymph % (Auto) Lymph # (Auto) Seg Neutrophils % Seg Neuts % (Manual) Lymphocytes % (Manual) Monocytes % (Manual) Nucleated RBC % Seg Neutrophils # Seg Neutrophils # Man Lymphocytes # (Manual) Monocytes # (Manual) Eosinophils # (Manual) INR D-Dimer ABG pH 7.179 L POC ABG pCO2 76.6 H POC ABG pO2 ABG pO2 ABG HCO3 ABG O2 Saturation ABG Base Excess ABG Hemoglobin 9.0 L ABG Oxyhemoglobin ABG Sodium 134.8 L ABG Potassium ABG Chloride ABG Glucose 118 H Oxyhemoglobin Carboxyhemoglobin Sodium Potassium Chloride Carbon Dioxide BUN Creatinine Glucose POC Glucose 110 H 113 H Hemoglobin A1c Lactic Acid Calcium Phosphorus Magnesium Ferritin Total Bilirubin AST ALT Lactate Dehydrogenase C-Reactive Protein Albumin Triglycerides Arterial Blood Glucose 118 H Arterial Blood Ionized Calcium Urine Creatinine Coronavirus (PCR) Crossmatch 02/26/21 02/26/21 02/26/21 05:48 05:48 05:48 WBC 11.4 H RBC 2.40 L Hgb 7.5 L Hct 23.2 L MCV 97 H MCH MCHC RDW 17.4 H Plt Count Lymph % (Auto) Lymph # (Auto) Seg Neutrophils % Seg Neuts % (Manual) Lymphocytes % (Manual) Monocytes % (Manual) Nucleated RBC % Seg Neutrophils # Seg Neutrophils # Man Lymphocytes # (Manual) Monocytes # (Manual) Eosinophils # (Manual) INR D-Dimer ABG pH POC ABG pCO2 POC ABG pO2 ABG pO2 ABG HCO3 ABG O2 Saturation ABG Base Excess ABG Hemoglobin ABG Oxyhemoglobin ABG Sodium ABG Potassium ABG Chloride ABG Glucose Oxyhemoglobin Carboxyhemoglobin Sodium Potassium Chloride Carbon Dioxide BUN 72 H Creatinine 4.5 H Glucose 112 H POC Glucose Hemoglobin A1c Lactic Acid Calcium 7.7 L Phosphorus Magnesium Ferritin 867.8 H Total Bilirubin AST ALT Lactate Dehydrogenase C-Reactive Protein 5.90 H Albumin Triglycerides Arterial Blood Glucose Arterial Blood Ionized Calcium Urine Creatinine Coronavirus (PCR) Crossmatch 02/26/21 02/26/21 02/26/21 08:00 11:29 18:13 WBC RBC Hgb Hct MCV MCH MCHC RDW Plt Count Lymph % (Auto) Lymph # (Auto) Seg Neutrophils % Seg Neuts % (Manual) Lymphocytes % (Manual) Monocytes % (Manual) Nucleated RBC % Seg Neutrophils # Seg Neutrophils # Man Lymphocytes # (Manual) Monocytes # (Manual) Eosinophils # (Manual) INR D-Dimer ABG pH 7.228 L POC ABG pCO2 70.2 H POC ABG pO2 79.7 L ABG pO2 ABG HCO3 ABG O2 Saturation ABG Base Excess ABG Hemoglobin 7.6 L ABG Oxyhemoglobin 93.2 L ABG Sodium 135.7 L ABG Potassium ABG Chloride ABG Glucose 119 H Oxyhemoglobin Carboxyhemoglobin Sodium Potassium Chloride Carbon Dioxide BUN Creatinine Glucose POC Glucose 110 H 115 H Hemoglobin A1c Lactic Acid Calcium Phosphorus Magnesium Ferritin Total Bilirubin AST ALT Lactate Dehydrogenase C-Reactive Protein Albumin Triglycerides Arterial Blood Glucose 119 H Arterial Blood Ionized Calcium Urine Creatinine Coronavirus (PCR) Crossmatch 04/29/21 04/30/21 04/30/21 23:18 04:00 05:04 WBC RBC Hgb Hct MCV MCH MCHC RDW Plt Count Lymph % (Auto) Lymph # (Auto) Seg Neutrophils % Seg Neuts % (Manual) Lymphocytes % (Manual) Monocytes % (Manual) Nucleated RBC % Seg Neutrophils # Seg Neutrophils # Man Lymphocytes # (Manual) Monocytes # (Manual) Eosinophils # (Manual) INR D-Dimer ABG pH 7.316 L POC ABG pCO2 49.0 H POC ABG pO2 111.2 H ABG pO2 ABG HCO3 ABG O2 Saturation ABG Base Excess ABG Hemoglobin 7.7 L ABG Oxyhemoglobin ABG Sodium 135.0 L ABG Potassium ABG Chloride ABG Glucose 113 H Oxyhemoglobin Carboxyhemoglobin Sodium Potassium Chloride Carbon Dioxide BUN Creatinine Glucose POC Glucose 114 H 112 H Hemoglobin A1c Lactic Acid Calcium Phosphorus Magnesium Ferritin Total Bilirubin AST ALT Lactate Dehydrogenase C-Reactive Protein Albumin Triglycerides Arterial Blood Glucose 113 H Arterial Blood Ionized Calcium 4.4 L Urine Creatinine Coronavirus (PCR) Crossmatch
[2021-02-27] MEDS: dexmedeTOMIDine 1,000 MCG in SODIUM CHLORIDE 0.9% 250ML 250 ML IV SCH (22:28)
[2021-02-28] MEDS: fentaNYL DRIP Premix 2,000 MCG/100 ML BAG IV SCH ×3 (00:41→16:13)
[2021-02-28] MEDS: HEPARIN 5,000 UNIT/1 ML VIAL SUB-Q SCH ×3 (06:52→21:36)
--- NOTE | 2021-02-28 09:34 | Progress Note ---
Assessment and Plan Assessment and plan: This is a 60-year-old male with diabetes mellitus, hypertension, hyperlipidemia, chronic renal insufficiency presents to the emergency department on 01/23 with shortness of breath, fevers chills, loss of smell and taste and body aches for the past 3 days via EMS. Per EMS patient's oxygen saturation on room air was 50% and after being placed on nonrebreather it increased 75%. Upon arrival to the emergency department patient was being bagged by EMS. In the emergency room patient was intubated due to severe hypoxia, increased work of breathing and lethargy. Patient was sedated on propofol and fentanyl. Patient presented with fever, tachycardia, tachypnea and acute hypoxic respiratory failure with PNA on CXR meeting Sepsis criteria. Lab work in the emergency department revealed hyponatremia, hypokalemia, hypochloremia, elevated CR/BUN and CXR showed bilateral pneumonia. Patient was admitted to the hospital service as a COVID-19 PUI with consults to infectious disease, nephrology and critical care medicine. Sepsis COVID-19 pneumonia Coag-neg Staph bacteremia Acute hypoxic respiratory failure Acute kidney injury, HD initiated 02/03 Anemia Diabetes mellitus Hypertension Hyperlipidemia Chronic renal insufficiency Elevated D-dimer 01/24/2021: Patient is intubated and sedated, patient is positive for COVID-19 infection. ID was consulted and put on dexamethasone and remdesivir. Patient has DEISI and nephrology is following. Creatinine stable, patient is urinating. Discussed with nephrology and he is okay with remdesivir. Pulmonary critical care is following for his vent setting. PEEP of 8 and FiO2 of 85%. Patient was alert and off sedatives. 01/25/2021; patient is intubated and on mechanical ventilation. Continue with treatment of Covid. Nephrology and ID is following. Pulmonary is following for vent management 01/26: Remains on mechanical ventilation and [facility] increased his PEEP. [facility] has ordered Precedex for sedation. Possibly need to prone this p.m. No acute events reported overnight. This morning his D-dimer is greater than 10,000 and we have started him on Lovenox 120 mg daily. Nutrition has been consulted for initiation of tube feedings. Patient remains sedated on propofol 40 and fentanyl for the time my examination this morning. 01/27: Continue Lovenox, remdesivir and empiric antibiotics. Patient had a T-max of 101 overnight. The time of examination patient is on CMV 500/18/14/0.61. Kidney function slightly worsened. Sedated on fentanyl ground-level fall and Precedex. Nephrology has increased IV fluids to 100 ml/hr. Continue to trend BMP and CBC. Sedation vacation attempt by RN this AM. 01/28: Patient completed antibiotics today [facility] will paralyze patient and increase sedation. PICC line ordered for possible vasopressor therapy need. Patient's D-dimer remains greater than 10,000 and he still has hyperchloremia. Patient's kidney function has improved today. May need to prone the patient if no improvement in oxygenation is noted in the next 24 hours. The time of my examination patient is sedated with propofol, fentanyl and Precedex and is on assist control 500/18/16/0.80 hypoxic on ABG on 60% FiO2. 01/29: Patient was started on Nimbex yesterday and his ABG this morning showed respiratory acidosis with hypercapnia and his respiratory rate was increased. We will obtain a repeat ABG this afternoon. This morning patient is hyper natremic, hyperkalemic and hyperchloremic. His potassium has been corrected with the management and will obtain repeat BMP tomorrow. His kidney functions have remained stable and we will await nephrology's input. No acute events reported overnight. This morning the time my examination patient sedated with propofol, Precedex and fentanyl and paralyzed with Nimbex. He is on assist control 500/24/16 0.80. 01/30: This morning patient is hypokalemic again and was given Kayexalate. Patient has hypernatremia and hyper chloremia and his renal function is slightly worse after receiving Lasix yesterday. His D-dimer remains greater than 10,000 and he is still on a paralytic. Patient is sedated on Precedex, fentanyl, propofol. Mechanical ventilation settings seven-point /61/28. [facility] has d ecided to continue paralytics for 48 more hours and will attempt proning the patient. Increased free water flushes 300 cc every 4 hours. Patient states has restarted his antibiotics cefepime and vancomycin and recultured. 01/31/21 Hyperkalemia, Treated 02/01/21 Hyperkalemia, Treated 02/02: Patient's kidney function continues to worsen and a stat BMP this morning shows BUN/creatinine 20/6.1 and he remains hypocalcemic and hypernatremic, hypokalemic and hypochloremic. Patient received 2 g of calcium gluconate and Kayexalate and his repeat potassium was 4.3 this afternoon. He remains antibiotic therapy and steroids. Nephrology has placed the patient on bicarb drip given metabolic acidosis and has decided to hold off hemodialysis till tomorrow.The time my examination patient is sedated on fentanyl, Precedex and on assist control 500/20/12/0.70. s/p paralytic. 02/03: Today patient's ABG shows respiratory acidosis however it is improving, hypernatremia, hyperchloremia, metabolic acidosis on BMP, worsening kidney function BUN/creatinine 130/9.2 with hyperphosphatemia. Patient received a Vas-Cath to his right IJ for initiation of dialysis. At the time of my examination patient remains sedated on fentanyl, propofol and Precedex with vasopressor support with Levophed at 2. 02/04: At the time of examination patient was on assist control tidal volume 500, rate 40, PEEP of 12, FiO2 85%. Patient had a T-max of 100.9 and infectious disease has stopped his vancomycin given negative MRSA. This afternoon patient respiked his temperature and was pancultured again. Patient was started on hem odialysis yesterday and will receive HD again today. Patient is sedated on Precedex, propofol, fentanyl and remains on Levophed. He is on assist control tidal volume 500, rate of 30, PEEP of 12, FiO2 of 85%. Patient still has some respiratory acidosis however his hypernatremia and hyperchloremia have improved and his metabolic acidosis has resolved. Patient will receive hemodialysis today 02/05: Patient continues to have low-grade fever temp this morning time examination he was on assist control tidal volume 500, and sedated on propofol/fentanyl/Precedex and is on Levophed. Hemodialysis per nephrology. Antibiotics per ID. Patient's blood culture from 02/04 grew gram-positive cocci in clusters in 1/2 bottles and he was started on vancomycin. 02/06: Patients ABG showed respiratory acidosis and the tracings were changed however a repeat ABG showed showed acidosis.[facility] will start a bicarb drip after giving 2 amps of bicarb push. Yesterday patient blood cultures grew gram- positive cocci and he was started on vancomycin. At the time my examination patient was on assist control tidal volume 550, rate 34, PEEP 16, FiO2 90% and sedated on fentanyl, Precedex, propofol elevated pressure support with Levophed. Bilateral lower extremity Doppler ultrasounds done yesterday showed no evidence of DVT/SVT. 02/07/2021; patient is still on the vent with PEEP of 16 and FiO2 of 90%, sedated with fentanyl Precedex and propofol. Patient still requiring Levophed. Patient was sedated yesterday and was given bicarb push. Blood culture grew gram- positive cocci in clusters and he is on vancomycin, will follow identification. 02/08/2021;patient is still on the vent with PEEP of 16 and FiO2 of 90%, sedated with fentanyl Precedex and propofol. Patient still requiring Levophed. Patient was sedated yesterday and was given bicarb push. Blood culture grew gram- positive cocci in clusters and he is on vancomycin, will follow identification. Patient is currently on dialysis. Patient is anemic transfuse if hemoglobin is below 7. 4/12: This morning patient has slight hypokalemia, hypochorlemia, hyponatremia and metabolic alkalosis. [facility] will continue bicarb gtt given that the patient does not have HD access at this time. We will replete the potassium and recheck BMP in the AM. We will type and cross in anticipation of PRBC transfusion. This morning he is sedated on Ativan, fentayl, and precedex. Will obtain a triglyceride level today in hopes to resume propofol. Patient is alkalotic and BMP however we will continue with bicarb drip per [facility] given that the patient does not have any access for hemodialysis. Anticipate replacing hemodialysis catheter tomorrow or Tuesday. The time my examination he is on AC TV 550, Rate 34, PeeP 16, FiO2 .65. 13: A.m. labs still pending, [facility] plans to replace HD catheter tomorrow as the patient is still febrile however his fever curve is trending down, remains on a bicarb drip and on vancomycin. Today at the time my examination patient was sedated on Precedex, Ativan and fentanyl and he is on assist control tidal 11/04/1951, rate 34, PEEP 16, FiO2 65%. Overnight patient was hypotensive and received 1 dose of midodrine. 02/11: Patient is still having low-grade temperatures that we will obtain a bilateral lower upper extremity venous Doppler ultrasound given that his repeat cultures have been negative so far. Patient received a Vas-Cath today for hemodialysis. The time examination patient is on assist control tidal volume 550, rate of 34, PEEP of 16 and FiO2 of 75%. Patient was hypokalemic and anemic yesterday which were both repleted with potassium and 1 unit PRBC. 02/12: 02/12: Patient had a 12-second run of V. tach today, his potassium and magnesium were low which was repleted. Renal adjusted potassium bath. We will obtain a triglyceride level in hopes to restarting to prevent as needed. This morning at the time my examination patient was sedated on fentanyl, Ativan and Precedex and remained on a bicarb drip. He was on assist control tidal volume 550, rate 34, PEEP 16, FiO2 85%. We will obtain a occult stool given no evident source of bleeding and need for transfusion. Anemia possibly due to hemodialysis. 02/13: Patient's T-max was 100.7, remains on fentanyl, Ativan, Precedex and bicarb drip this morning at some examination on assist control tidal volume 550, rate 34, PEEP 16 and FiO2 85%. On the labs this morning is slightly hypokalemic and remains metabolic alkalotic on BMP. His occult was positive. His Lovenox and consult GI. Patient received hemodialysis today. 02/14: cont PPI, GI recommended to scope now, monitor clinically, tolerating TF, remains intubated. Hb 6.9 today - transfuse another unit. very poor prognosis. 02/15: H&H appears to be stable following 1 unit of transfusion yesterday. Continue to hold heparin and aspirin products. Continue to monitor clinically. Poor prognosis. Wean off from vent as tolerated. 02/16: Infectious disease has signed off, his Ativan drip was discontinued and to prevent drip will be started when patient needs it. T-max 100.6 yesterday afte tej. He received hemodialysis today and at the time my examination was still on mechanical ventilation assist control tidal volume 550, rate 34, PEEP 16 on 70% FiO2. Patient was sedated on fentanyl dexamethasone and Ativan. No acute events reported overnight. 02/17: This morning patient was scheduled to get 2 units PRBC however his repeat H/H after 1 unit PRBC was 7.6/22.8 and the width of the second unit PRBC. This morning patient was sedated on fentanyl, propofol, Precedex and on assist control tolerated by 50, rate 34, PEEP of 16, FiO2 35%. Wound care was consulted today for his upper lip wound. Nephrology continues to withhold dialysis. No acute events reported overnight. Dr. Adkins was unable to contact family for updates. 02/18: Family updated by Dr. Adkins and Dr. Reddy. Patient had a hemodialysis today. The time my examination patient was on assist control tidal volume 550, rate 34, PEEP 16 and FiO2 35%. Overnight patient had a CT head and he was placed on 3% FiO2 and took "a long time to recover" per RN report. 02/19: Patient's D-dimer is trending up therefore he was started on prophylactic anticoagulation, no bowel movement for several days so he was started on mag citrate today. The time examination patient is sedated on Precedex 1.2, fentanyl 3, propofol 20 on assist control tidal volume 550, rate 34, PEEP 16, 80% FiO2 and on his ABG his PaO2 is 106. RT will try to wean as tolerated. Repeat COVID-19 PCR today was positive.Dr. Adkins updated the family today. 02/20: Patient received hemodialysis today. In the time my examination patient was sedated on Precedex, fentanyl, propofol and on assist control tidal line 550, rate 34, PEEP of 16 and 75% FiO2. Patient had a bowel movement yesterday. 02/21 no new concerns at this time afebrile Hospital course remains uncomplicated. 02/22. Hospital course complicated by an episode of ectopy over the p.m. Patient required Levophed for blood pressure control. Remains intubated sedated. Tolerated hemodialysis yesterday. 02/23: At the time my examination patient is on assist control tidal volume 550, rate 34, PEEP 16, FiO2 70% and is not sedated. Patient does not follow commands however his eyes open spontaneously and he does not track/focus. 02/24: Neurology consulted, EEG pending. No acute events reported overnight. Patient remains on hyperventilation totaling 550, rate 34, PEEP of 16 on 70% FiO2. Patient received hemodialysis yesterday. 02/25: EEG from 02/24 is suggestive of encephalopathy (toxic metabolic etiology cannot be excluded). This afternoon his peak pressures and and mean airway pressure is elevated so we obtained a CXR and ABG. Results were called to Dr. Masters. Patient received 2 mg of Versed was placed back on his sedation with fentanyl and Precedex. 02/26: Patient is on pressure ventilation FiO2 70%, Pressure inspiration 25, rate 34, PEEP 10 and sedated on fentanyl at 2mcgs and Precedex at 0.2. We will obtain a cxr for evaluation. Patient seems to be much more comfortable today. 02/27: CXr unchanges, at this time my examination patient is on pressure control ventilation FiO2 70%, pressure support 26, rate 34 n.p.o. for 10 and sedated on fentanyl at 2 and Precedex at 0.1. His latest ABG 7.3, CO2 49, PO2 111, base excess 24. Patient is to receive hemodialysis today. No acute events reported overnight. Patient still not following commands. 02/28: Continue mechanical ventilation per pulmonary recommendations. Patient currently in AC mode ventilation rate 34, FiO2 70%, PEEP 15. 02/24 EEG finding consistent with encephalopathy and/or drug effect, possibility of toxic metabolic etiology cannot be excluded, possibility of structural lesion on the left side cannot be excluded given left being slightly slower than the right. Continue hemodialysis per nephrology. Currently with sedation of fentanyl and Precedex. Pulmonary plans for trach when ventilator settings allow. History Interval history: No new issues overnight. Hospitalist Physical - Constitutional Vitals: Temp Pulse Resp BP Pulse Ox 98.2 F 103 H 22 125/68 97 02/28/21 08:00 02/28/21 08:16 02/28/21 08:00 02/28/21 08:16 02/28/21 08:16 General appearance: Present: no acute distress, obese, other (Sedated on mec hanical ventilation) - EENT Eyes: Present: PERRL, EOM intact ENT: hearing intact, clear oral mucosa, dentition normal - Neck Neck: Present: supple, normal ROM - Respiratory Respiratory effort: normal Respiratory: bilateral: CTA - Cardiovascular Rhythm: regular Heart Sounds: Present: S1 & S2. Absent: gallop, rub - Extremities Extremities: no ischemia, No edema, Full ROM - Abdominal General gastrointestinal: soft, non-tender, non-distended, normal bowel sounds - Integumentary Integumentary: Present: clear, warm, dry - Neurologic Neurologic: CNII-XII intact, moves all extremities HEART Score - HEART Score Risk factors: 1-2 risk factors Troponin: < normal limit - Critical Actions Critical Actions: 0-3 pts:0.9-1.7%risk of adverse cardiac event.Candidate for discharge Results - Labs CBC & Chem 7: 02/26/21 05:48 02/26/21 05:48 Labs: Laboratory Last Values WBC 11.4 K/mm3 (4.5-11.0) H 02/26/21 05:48 RBC 2.40 M/mm3 (3.65-5.03) L 02/26/21 05:48 Hgb 7.5 gm/dl (11.8-15.2) L 02/26/21 05:48 Hct 23.2 % (35.5-45.6) L 02/26/21 05:48 MCV 97 fl (84-94) H 02/26/21 05:48 MCH 31 pg (28-32) 02/26/21 05:48 MCHC 32 % (32-34) 02/26/21 05:48 RDW 17.4 % (13.2-15.2) H 02/26/21 05:48 Plt Count 351 K/mm3 (140-440) 02/26/21 05:48 Lymph % (Auto) 11.0 % (13.4-35.0) L 02/15/21 05:00 [place] % (Auto) 4.2 % (0.0-7.3) 02/15/21 05:00 Eos % (Auto) 1.2 % (0.0-4.3) 02/15/21 05:00 Baso % (Auto) 0.6 % (0.0-1.8) 02/15/21 05:00 Lymph # (Auto) 1.1 K/mm3 (1.2-5.4) L 02/15/21 05:00 [place] # (Auto) 0.4 K/mm3 (0.0-0.8) 02/15/21 05:00 Eos # (Auto) 0.1 K/mm3 (0.0-0.4) 02/15/21 05:00 Baso # (Auto) 0.1 K/mm3 (0.0-0.1) 02/15/21 05:00 Add Manual Diff Complete 02/24/21 04:25 Total Counted 100 02/24/21 04:25 Seg Neutrophils % 83.0 % (40.0-70.0) H 02/15/21 05:00 Seg Neuts % (Manual) 82.0 % (40.0-70.0) H 02/24/21 04:25 Band Neutrophils % 2.0 % 02/16/21 Unknown Lymphocytes % (Manual) 3.0 % (13.4-35.0) L 02/24/21 04:25 Reactive Lymphs % (Man) 1.0 % 01/27/21 05:29 Monocytes % (Manual) 11.0 % (0.0-7.3) H 02/24/21 04:25 Eosinophils % (Manual) 1.0 % (0.0-4.3) 02/24/21 04:25 Basophils % (Manual) 1.0 % (0.0-1.8) 02/24/21 04:25 Metamyelocytes % 2.0 % 02/24/21 04:25 Nucleated RBC % Not Reportable 02/24/21 04:25 Seg Neutrophils # 8.6 K/mm3 (1.8-7.7) H 02/15/21 05:00 Seg Neutrophils # Man 9.4 K/mm3 (1.8-7.7) H 02/24/21 04:25 Band Neutrophils # 0.0 K/mm3 02/24/21 04:25 Lymphocytes # (Manual) 0.3 K/mm3 (1.2-5.4) L 02/24/21 04:25 Abs React Lymphs (Man) 0.0 K/mm3 02/24/21 04:25 Monocytes # (Manual) 1.3 K/mm3 (0.0-0.8) H 02/24/21 04:25 Eosinophils # (Manual) 0.1 K/mm3 (0.0-0.4) 02/24/21 04:25 Basophils # (Manual) 0.1 K/mm3 (0.0-0.1) 02/24/21 04:25 Metamyelocytes # 0.2 K/mm3 02/24/21 04:25 Myelocytes # 0.0 K/mm3 02/24/21 04:25 Promyelocytes # 0.0 K/mm3 02/24/21 04:25 Blast Cells # 0.0 K/mm3 02/24/21 04:25 WBC Morphology Not Reportable 02/24/21 04:25 Hypersegmented Neuts Not Reportable 02/24/21 04:25 Hyposegmented Neuts Not Reportable 02/24/21 04:25 Hypogranular Neuts Not Reportable 02/24/21 04:25 Smudge Cells Not Reportable 02/24/21 04:25 Toxic Granulation Not Reportable 02/24/21 04:25 Toxic Vacuolation Not Reportable 02/24/21 04:25 Dohle Bodies Not Reportable 02/24/21 04:25 Pelger-Huet Anomaly Not Reportable 02/24/21 04:25 Fátima Rods Not Reportable 02/24/21 04:25 Platelet Estimate Consistent w auto 02/24/21 04:25 Clumped Platelets Not Reportable 02/24/21 04:25 Plt Clumps, EDTA Not Reportable 02/24/21 04:25 Large Platelets Not Reportable 02/24/21 04:25 Giant Platelets Not Reportable 02/24/21 04:25 Platelet Satelliting Not Reportable 02/24/21 04:25 Plt Morphology Comment Not Reportable 02/24/21 04:25 RBC Morphology Not Reportable 02/24/21 04:25 Dimorphic RBCs Not Reportable 02/24/21 04:25 Polychromasia Few 02/24/21 04:25 Hypochromasia Not Reportable 02/24/21 04:25 Poikilocytosis Not Reportable 02/24/21 04:25 Anisocytosis 1+ 02/24/21 04:25 Microcytosis Not Reportable 02/24/21 04:25 Macrocytosis Not Reportable 02/24/21 04:25 Spherocytes Not Reportable 02/24/21 04:25 Pappenheimer Bodies Not Reportable 02/24/21 04:25 Sickle Cells Not Reportable 02/24/21 04:25 Target Cells Not Reportable 02/24/21 04:25 Tear Drop Cells Not Reportable 02/24/21 04:25 Ovalocytes Not Reportable 02/24/21 04:25 Helmet Cells Not Reportable 02/24/21 04:25 Potter-Alanreed Bodies Not Reportable 02/24/21 04:25 Zanoni Rings Not Reportable 02/24/21 04:25 [place] Cells Not Reportable 02/24/21 04:25 Bite Cells Not Reportable 02/24/21 04:25 Crenated Cell Not Reportable 02/24/21 04:25 Elliptocytes Not Reportable 02/24/21 04:25 Acanthocytes (Spur) Not Reportable 02/24/21 04:25 Rouleaux Not Reportable 02/24/21 04:25 Hemoglobin C Crystals Not Reportable 02/24/21 04:25 Schistocytes Not Reportable 02/24/21 04:25 Malaria parasites Not Reportable 02/24/21 04:25 Aquiles Bodies Not Reportable 02/24/21 04:25 Hem Pathologist Commnt No 02/24/21 04:25 PT 14.9 Sec. (12.2-14.9) 02/11/21 08:27 INR 1.17 (0.87-1.13) H 02/11/21 08:27 D-Dimer 6536.84 ng/mlDDU (0-234) H 02/25/21 09:03 ABG pH 7.260 (7.320-7.450) L 02/28/21 04:07 POC ABG pCO2 67.6 mmHg (32.0-48.0) H 02/28/21 04:07 ABG pCO2 62.7 mm Hg 02/23/21 04:00 POC ABG pO2 96.6 mmHg (83-108) 02/28/21 04:07 ABG pO2 119.4 mm Hg (80.0-90.0) H 02/23/21 04:00 POC ABG HCO3 29.7 02/28/21 04:07 ABG HCO3 26.6 mmol/L (20.0-26.0) H 02/23/21 04:00 ABG O2 Saturation 96.8 (0-100) 02/28/21 04:07 ABG O2 Content 12.0 (0.0-44) 02/23/21 04:00 POC ABG Base Excess 2 02/28/21 04:07 ABG Base Excess -1.2 mmol/L (-2.0-3.0) 02/23/21 04:00 ABG Hemoglobin 7.9 (12.0-17.5) L 02/28/21 04:07 ABG Oxyhemoglobin 96.4 (94-98) 02/27/21 04:00 ABG Carboxyhemoglobin 1.8 % (0.0-5.0) 02/23/21 04:00 ABG Methemoglobin 0.3 (0.0-1.5) 02/27/21 04:00 ABG Sodium 136.0 mmol/L (136.0-145.0) 02/28/21 04:07 ABG Potassium 3.8 mmol/L (3.40-4.50) 02/28/21 04:07 ABG Chloride 101.0 mmol/L (98-107) 02/28/21 04:07 ABG Glucose 129 mg/dL (65-95) H 02/28/21 04:07 Oxyhemoglobin 95.4 % (95.0-99.0) 02/23/21 04:00 Carboxyhemoglobin 1.4 (0.5-1.5) 02/27/21 04:00 FiO2 70 % 02/23/21 04:00 FiO2 % 70 02/28/21 04:07 Sodium 137 mmol/L (137-145) 02/26/21 05:48 Potassium 4.3 mmol/L (3.6-5.0) 02/26/21 05:48 Chloride 99.4 mmol/L (98-107) 02/26/21 05:48 Carbon Dioxide 27 mmol/L (22-30) 02/26/21 05:48 Anion Gap 15 mmol/L 02/26/21 05:48 BUN 72 mg/dL (9-20) H 02/26/21 05:48 Creatinine 4.5 mg/dL (0.8-1.3) H 02/26/21 05:48 Estimated GFR 16 ml/min 02/26/21 05:48 BUN/Creatinine Ratio 16 % 02/26/21 05:48 Glucose 112 mg/dL (75-100) H 02/26/21 05:48 POC Glucose 117 mg/dL (70-105) H 02/28/21 05:29 Hemoglobin A1c 6.3 % (4-6) H 02/02/21 16:00 Lactic Acid 1.90 mmol/L (0.7-2.0) 01/24/21 14:38 Calcium 7.7 mg/dL (8.4-10.2) L 02/26/21 05:48 Phosphorus 7.90 mg/dL (2.5-4.5) H 02/21/21 16:35 Magnesium 2.60 mg/dL (1.7-2.3) H 02/21/21 16:35 Ferritin 867.8 ng/mL (30.0-300.0) H 02/26/21 05:48 Total Bilirubin 1.50 mg/dL (0.1-1.2) H 01/26/21 05:47 AST 37 units/L (5-40) 01/26/21 05:47 ALT 29 units/L (7-56) 01/26/21 05:47 Alkaline Phosphatase 70 units/L (35-129) 01/26/21 05:47 Lactate Dehydrogenase 345 units/L (91-180) H 02/19/21 05:45 C-Reactive Protein 5.90 mg/dL (0.00-1.30) H 02/26/21 05:48 Total Protein 7.2 g/dL (6.3-8.2) 01/26/21 05:47 Albumin 2.2 g/dL (3.9-5) L 01/26/21 05:47 Albumin/Globulin Ratio 0.4 % 01/26/21 05:47 Triglycerides 195 mg/dL (2-149) H 02/19/21 05:45 Procalcitonin 18.94 ng/mL (<0.15) 02/16/21 17:09 Arterial Blood Glucose 129 mg/dL (65-95) H 02/28/21 04:07 Arterial Blood Ionized Calcium 4.7 mg/dL (4.6-5.3) 02/28/21 04:07 Urine Color Nehal (Yellow) 01/22/21 22:39 Urine Turbidity Cloudy (Clear) 01/22/21 22:39 Urine pH 5.0 (5.0-7.0) 01/22/21 22:39 Ur Specific [place] 1.017 (1.003-1.030) 01/22/21 22:39 Urine Protein 100 mg/dl mg/dL (Negative) 01/22/21 22:39 Urine Glucose (UA) Neg mg/dL (Negative) 01/22/21 22:39 Urine Ketones Neg mg/dL (Negative) 01/22/21 22:39 Urine Blood Mod (Negative) 01/22/21 22:39 Urine Nitrite Neg (Negative) 01/22/21 22:39 Urine Bilirubin Neg (Negative) 01/22/21 22:39 Urine Urobilinogen 2.0 mg/dL (<2.0) 01/22/21 22:39 Ur Leukocyte Esterase Mod (Negative) 01/22/21 22:39 Urine WBC (Auto) < 1.0 /HPF (0.0-6.0) 01/22/21 22:39 Urine RBC (Auto) < 1.0 /HPF (0.0-6.0) 01/22/21 22:39 U Epithel Cells (Auto) < 1.0 /HPF (0-13.0) 01/22/21 22:39 Urine Osmolality 416 Mosm/kg 01/30/21 12:15 Urine Total Volume 2300 ml 01/30/21 12:00 Urine Creatinine 53.0 mg/dL (0.1-20.0) H 01/30/21 12:00 Ur Creatinine 24 Hour 1.2 (0.8-2.8) 01/30/21 12:00 Urine Sodium 28 mmol/L 01/22/21 22:39 Nasal Screen MRSA (PCR) Negative (Negative) 02/02/21 13:20 Random Vancomycin 13.7 ug/mL (0-40.0) 02/07/21 10:40 Coronavirus (PCR) Positive (Negative) A 02/18/21 10:00 Hepatitis A IgM Ab Non-reactive (NonReactive) 02/03/21 Unknown Hep Bs Antigen Non-reactive (Negative) 02/03/21 Unknown Hep B Core IgM Ab Non-reactive (NonReactive) 02/03/21 Unknown Hepatitis C Antibody Non-reactive (NonReactive) 02/03/21 Unknown Blood Type B POSITIVE 02/17/21 07:45 Antibody Screen Negative 02/17/21 07:45 Crossmatch See Detail 02/17/21 07:45 Black/IV: Voiding Method Incontinent Active Medications - Current Medications Current Medications: Generic Name Dose Route Start Last Admin Trade Name Freq PRN Reason Stop Dose Admin Acetaminophen 650 mg 01/24/21 12:58 02/25/21 13:31 Acetaminophen 325 Mg/10.15 Ml Oral Liqd Unit Dose FEEDTUBE 650 mg Q6H PRN Administration Pain, Mild (1-3) Lipase/Protease/Amylase 1 each 01/26/21 14:25 Lipase 10,500/Protease 25,000/Amylase 43,750 (Units) Dr Cap FEEDTUBE PRN PRN For Clogged Feeding Tube Dextrose 50 ml 01/27/21 07:24 Dextrose 50% In Water (25gm) 50 Ml Syringe IV Q30MIN PRN Hypoglycemia Protocol Fentanyl 50 mcg 01/22/21 22:39 02/25/21 10:25 Fentanyl 100 Mcg/2 Ml Inj IV 50 mcg Q10MIN PRN Administration ANALGESIA Heparin Sodium (Porcine) 2,000 unit 02/11/21 09:38 02/21/21 21:25 Heparin 10,000 Units/10 Ml Vial IV 2,000 unit SAGRARIO PRN Administration hemodialysis Heparin Sodium (Porcine) 5,000 unit 02/19/21 14:00 02/28/21 06:52 Heparin 5,000 Unit/1 Ml Vial SUB-Q 5,000 unit Q8HR CECE Administration Fentanyl Citrate 2,000 mcg in 100 mls @ 6.124 mls/hr 01/22/21 23:00 02/28/21 08:36 Fentanyl Drip Premix IV 2 mcg/kg/hr TITR CECE 12.247 mls/hr Administration Protocol 1 MCG/KG/HR Propofol 1,000 mg in 100 mls @ 3.674 mls/hr 01/22/21 23:45 02/21/21 08:30 Diprivan 10 Mg/Ml IV 0 mcg/kg/min TITR CECE 0 mls/hr Titration Protocol 5 MCG/KG/MIN Norepinephrine 4 mg in 250 mls @ 7.5 mls/hr 01/28/21 14:00 02/22/21 18:27 Levophed Drip 4 Mg/Ns 250 Ml IV 0 mcg/min TITR CECE 0 mls/hr Titration Protocol 2 MCG/MIN Dexmedetomidine HCl 1,000 mcg/ 260 mls @ 6.368 mls/hr 01/30/21 20:00 02/27/21 22:28 Sodium Chloride IV 0.1 mcg/kg/hr TITRATE CECE 3.2 mls/hr Administration Protocol 0.2 MCG/KG/HR Sodium Chloride 100 mls @ 999 mls/hr 02/27/21 11:00 Nacl 0.9% IV SAGRARIO PRN Hypotension Lansoprazole 30 mg 02/18/21 10:00 02/27/21 09:56 Lansoprazole 30 Mg Solutab FEEDTUBE 30 mg QDAY CECE Administration Senna/Docusate Sodium 1 tab 02/25/21 10:00 02/27/21 21:44 Sennosides/Docusate Sodium 8.6/50 Mg Tab PO 1 tab BID CECE Administration Simple Syrup 15 ml 01/26/21 14:25 02/21/21 21:24 Simple Syrup 15 Ml FEEDTUBE 15 ml PRN PRN Administration Hypoglycemia Simple Syrup 30 ml 01/26/21 14:25 Simple Syrup 15 Ml FEEDTUBE PRN PRN Hypoglycemia Sodium Bicarbonate 325 mg 01/26/21 14:25 Sodium Bicarbonate 325 Mg Tab FEEDTUBE PRN PRN For Clogged Feeding Tube Nutrition/Malnutrition Assess - Dietary Evaluation Nutrition/Malnutrition Findings: Nutrition Notes Start: 01/26/21 13:59 Freq: Status: Active Protocol: Document 02/26/21 12:19 CW (Rec: 02/26/21 12:45 CW [id number]) Nutrition Notes Initial or Follow up Reassessment Current Diagnosis Acute Kidney Injury,Diabetes, Sepsis,Hypertension, Respiratory Failure, Hyperlipidemia Other Pertinent Diagnosis on HD, COVID-19 (+), bilat pneu Current Diet TF - Nepro at 46 ml/hr Labs/Tests BUN 72 Cr 4.5 Pertinent Medications [place] Height 5 ft 8 in Weight 99 kg Badger Body Weight (kg) 70.00 BMI 33.2 Weight change and time frame Some wt change likely r/t to HD. Weight Status Obese Subjective/Other Information TF continue to run at goal and is moderately tolerated. Pt remains on mechanical vent. Burn Absent Trauma Absent GI Symptoms Constipation Difficulty In Swallowing Skin Integrity/Comment pressure ulcer to lips Current % PO Negligible Minimum of two criteria No Fluid Accumulation Moderate to Severe (severe) #2 Nutrition Diagnosis Increased nutrient needs ( specify in comment below) Comments: protein Diagnosis Progress(for reassessment Continues documentation) #1 Nutrition Diagnosis Inadequate oral intake Diagnosis Progress(for reassessment Continues documentation) Is patient on ventilator? Yes Is Patient Ambulatory and/or Out of Bed No REE-([facility]-confined to bed) 2122.164 Kcal/Kg value to use for calculation 18 Approximate Energy Requirements Using 1782 kcal/Kg Calculation Used for Recommendations Kcal/kg Additional Notes Pro needs >1.2g/kg adjBW: > 115g/day for HD needs Fluid needs 500+ total output or per MD Nutrition Intervention Change Diet Order: Continue TF Nutrition Support: Nepro at 46 ml/hr with a free water flush of 200 ml q4h. Kcal 1,987 Protein (gm) 89 Fluid (mL) 803 Goal #1 TF tolerance Goal #2 TF to meet at least 75% energy and pro needs Anticipated Discharge Needs: unable to determine at this time Follow-Up By: 03/04/21 Additional Comments F/U for TF tolerance
[2021-02-28] MEDS: LANSOPRAZOLE 30 MG SOLUTAB FEEDTUBE SCH (09:43)
[2021-02-28] MEDS: SENNOSIDES/DOCUSATE SODIUM 8.6/50 MG TAB PO SCH ×2 (09:43→21:36)
[2021-02-28 11:52] LABS: Calcium 7.9 mg/dL (8.4-10.2)
--- NOTE | 2021-02-28 12:19 | Progress Note ---
Assessment and Plan Acute Hypoxic respiratory failure COVID-19 PNA Severe sepsis with septic shock Acute kidney injury secondary to ATN Hyperkalemia Hypernatremia DM2 on insulin Anemia Plan: no indication for HD today Initiated on HD on 02/03/21 S/P Right IJ Trialysis dialysis catheter placement by Dr Reddy Strict I&O's monitoring Renally dose medications Assess dialysis needs daily Monitor for renal recovery Subjective Date of service: 02/28/21 Principal diagnosis: DEISI Interval history: on the vent, no overnight events Objective - Vital Signs Vital signs: Vital Signs - 12hr 02/28/21 02/28/21 02/28/21 00:30 00:45 01:00 Temperature Pulse Rate 101 H 101 H 103 H Pulse Rate [ From Monitor] Respiratory 34 H 34 H 34 H Rate Blood Pressure 119/70 120/72 129/74 O2 Sat by Pulse 95 97 95 Oximetry 02/28/21 02/28/21 02/28/21 01:15 01:30 01:45 Temperature Pulse Rate 103 H 102 H 103 H Pulse Rate [ From Monitor] Respiratory 19 34 H 34 H Rate Blood Pressure 124/74 127/74 123/71 O2 Sat by Pulse 93 94 93 Oximetry 02/28/21 02/28/21 02/28/21 02:00 02:15 02:30 Temperature Pulse Rate 103 H 102 H 101 H Pulse Rate [ From Monitor] Respiratory 22 34 H 34 H Rate Blood Pressure 120/69 119/72 116/71 O2 Sat by Pulse 95 Oximetry 02/28/21 02/28/21 02/28/21 02:45 03:00 03:15 Temperature Pulse Rate 101 H 100 H 100 H Pulse Rate [ From Monitor] Respiratory 34 H 34 H 34 H Rate Blood Pressure 118/70 117/69 125/75 O2 Sat by Pulse 94 94 Oximetry 02/28/21 02/28/21 02/28/21 03:30 03:45 03:48 Temperature Pulse Rate 101 H 102 H 102 H Pulse Rate [ From Monitor] Respiratory 34 H 35 H Rate Blood Pressure 129/76 123/74 123/74 O2 Sat by Pulse 97 Oximetry 02/28/21 02/28/21 02/28/21 04:00 04:15 04:30 Temperature 98.8 F Pulse Rate 101 H 101 H 101 H Pulse Rate [ 101 H From Monitor] Respiratory 24 34 H 34 H Rate Blood Pressure 128/74 119/73 121/73 O2 Sat by Pulse 96 96 Oximetry 02/28/21 02/28/21 02/28/21 04:45 05:00 05:15 Temperature Pulse Rate 101 H 102 H 102 H Pulse Rate [ From Monitor] Respiratory 34 H 34 H 34 H Rate Blood Pressure 121/74 126/76 131/75 O2 Sat by Pulse 94 96 94 Oximetry 02/28/21 02/28/21 02/28/21 05:30 05:45 06:00 Temperature Pulse Rate 103 H 102 H 102 H Pulse Rate [ From Monitor] Respiratory 16 34 H 34 H Rate Blood Pressure 133/78 134/77 125/73 O2 Sat by Pulse 94 96 97 Oximetry 02/28/21 02/28/21 02/28/21 06:15 06:30 06:45 Temperature Pulse Rate 102 H 102 H 104 H Pulse Rate [ From Monitor] Respiratory 16 21 35 H Rate Blood Pressure 122/72 123/68 122/71 O2 Sat by Pulse 97 94 94 Oximetry 02/28/21 02/28/21 02/28/21 07:00 07:15 07:30 Temperature Pulse Rate 103 H 104 H 103 H Pulse Rate [ From Monitor] Respiratory 34 H 34 H 18 Rate Blood Pressure 120/70 122/68 119/65 O2 Sat by Pulse 95 Oximetry 02/28/21 02/28/21 02/28/21 07:45 08:00 08:15 Temperature 98.2 F Pulse Rate 103 H 102 H 103 H Pulse Rate [ 104 H From Monitor] Respiratory 18 17 18 Rate Blood Pressure 122/65 118/65 125/68 O2 Sat by Pulse 94 95 95 Oximetry 02/28/21 02/28/21 02/28/21 08:16 08:30 08:45 Temperature Pulse Rate 103 H 105 H 104 H Pulse Rate [ From Monitor] Respiratory 18 18 Rate Blood Pressure 125/68 122/75 126/74 O2 Sat by Pulse 97 94 Oximetry 02/28/21 02/28/21 02/28/21 09:00 09:15 09:30 Temperature Pulse Rate 104 H 103 H 103 H Pulse Rate [ From Monitor] Respiratory 16 15 15 Rate Blood Pressure 122/69 123/71 123/68 O2 Sat by Pulse 95 96 Oximetry 02/28/21 02/28/21 02/28/21 09:45 10:00 10:15 Temperature Pulse Rate 105 H 104 H 103 H Pulse Rate [ From Monitor] Respiratory 15 12 13 Rate Blood Pressure 128/71 121/71 121/69 O2 Sat by Pulse 94 Oximetry 02/28/21 02/28/21 02/28/21 10:30 10:45 11:00 Temperature Pulse Rate 103 H 104 H 103 H Pulse Rate [ From Monitor] Respiratory 25 H 18 13 Rate Blood Pressure 120/65 120/63 115/63 O2 Sat by Pulse 96 95 95 Oximetry 02/28/21 02/28/21 11:15 11:53 Temperature Pulse Rate 104 H 107 H Pulse Rate [ From Monitor] Respiratory 15 Rate Blood Pressure 112/58 121/64 O2 Sat by Pulse 98 Oximetry - Lab 02/26/21 05:48 02/28/21 10:22 Most recent lab results ABG pH 7.260 (7.320-7.450) L 02/28/21 04:07 ABG pCO2 62.7 mm Hg 02/23/21 04:00 ABG pO2 119.4 mm Hg (80.0-90.0) H 02/23/21 04:00 ABG HCO3 26.6 mmol/L (20.0-26.0) H 02/23/21 04:00 ABG O2 Saturation 96.8 (0-100) 02/28/21 04:07 Calcium 7.9 mg/dL (8.4-10.2) L 02/28/21 10:22 Phosphorus 7.90 mg/dL (2.5-4.5) H 02/21/21 16:35 Magnesium 2.60 mg/dL (1.7-2.3) H 02/21/21 16:35 Urine Creatinine 53.0 mg/dL (0.1-20.0) H 01/30/21 12:00 Urine Sodium 28 mmol/L 01/22/21 22:39 Medications & Allergies - Medications Allergies/Adverse Reactions: Allergies No Known Allergies Allergy (Unverified 03/12/20 13:41) Home Medications: Home Medications Medication Instructions Recorded Confirmed Last Taken Type Insulin NPH/Regular [Novolin 70/30] 18 unit SUB-Q TIDAC #1 vial 03/12/20 Unknown Rx Syringe-Needle,Insulin,0.5 ml 1 box MC TID #1 box 03/12/20 Unknown Rx [Insulin Syringe/Needle 0.5 ML] Active Medications: Generic Name Dose Route Start Last Admin Trade Name Freq PRN Reason Stop Dose Admin Acetaminophen 650 mg 01/24/21 12:58 02/25/21 13:31 Acetaminophen 325 Mg/10.15 Ml Oral Liqd Unit Dose FEEDTUBE 650 mg Q6H PRN Administration Pain, Mild (1-3) Lipase/Protease/Amylase 1 each 01/26/21 14:25 Lipase 10,500/Protease 25,000/Amylase 43,750 (Units) Dr Cap FEEDTUBE PRN PRN For Clogged Feeding Tube Dextrose 50 ml 01/27/21 07:24 Dextrose 50% In Water (25gm) 50 Ml Syringe IV Q30MIN PRN Hypoglycemia Protocol Fentanyl 50 mcg 01/22/21 22:39 02/25/21 10:25 Fentanyl 100 Mcg/2 Ml Inj IV 50 mcg Q10MIN PRN Administration ANALGESIA Heparin Sodium (Porcine) 2,000 unit 02/11/21 09:38 02/21/21 21:25 Heparin 10,000 Units/10 Ml Vial IV 2,000 unit [place] PRN Administration hemodialysis Heparin Sodium (Porcine) 5,000 unit 02/19/21 14:00 02/28/21 06:52 Heparin 5,000 Unit/1 Ml Vial SUB-Q 5,000 unit Q8HR CECE Administration Fentanyl Citrate 2,000 mcg in 100 mls @ 6.124 mls/hr 01/22/21 23:00 02/28/21 08:36 Fentanyl Drip Premix IV 2 mcg/kg/hr TITR CECE 12.247 mls/hr Administration Protocol 1 MCG/KG/HR Propofol 1,000 mg in 100 mls @ 3.674 mls/hr 01/22/21 23:45 02/21/21 08:30 Diprivan 10 Mg/Ml IV 0 mcg/kg/min TITR CECE 0 mls/hr Titration Protocol 5 MCG/KG/MIN Norepinephrine 4 mg in 250 mls @ 7.5 mls/hr 01/28/21 14:00 02/22/21 18:27 Levophed Drip 4 Mg/Ns 250 Ml IV 0 mcg/min TITR CECE 0 mls/hr Titration Protocol 2 MCG/MIN Dexmedetomidine HCl 1,000 mcg/ 260 mls @ 6.368 mls/hr 01/30/21 20:00 02/27/21 22:28 Sodium Chloride IV 0.1 mcg/kg/hr TITRATE CECE 3.2 mls/hr Administration Protocol 0.2 MCG/KG/HR Sodium Chloride 100 mls @ 999 mls/hr 02/27/21 11:00 Nacl 0.9% IV SAGRARIO PRN Hypotension Lansoprazole 30 mg 02/18/21 10:00 02/28/21 09:43 Lansoprazole 30 Mg Solutab FEEDTUBE 30 mg QDAY CECE Administration Senna/Docusate Sodium 1 tab 02/25/21 10:00 02/28/21 09:43 Sennosides/Docusate Sodium 8.6/50 Mg Tab PO 1 tab BID CECE Administration Simple Syrup 15 ml 01/26/21 14:25 02/21/21 21:24 Simple Syrup 15 Ml FEEDTUBE 15 ml PRN PRN Administration Hypoglycemia Simple Syrup 30 ml 01/26/21 14:25 Simple Syrup 15 Ml FEEDTUBE PRN PRN Hypoglycemia Sodium Bicarbonate 325 mg 01/26/21 14:25 Sodium Bicarbonate 325 Mg Tab FEEDTUBE PRN PRN For Clogged Feeding Tube
--- NOTE | 2021-02-28 13:06 | Progress Note ---
Assessment and Plan Imp: 1. Covid-19 2. Viral pneumonia 3. ARDS 4. Acute respiratory failure, hypoxia 5. Morbid obesity 6. DEISI 7. Anasarca Rec: 1. Cont. current management; wean FiO2 then PEEP; will need trach once ventilator settings allow 2. TFs, GI PPx, SCDs, SubQ heparin 3. HD per renal 4. F/u Neurology recs 5. Transfuse if H/H less than 7.0/21.0 6. Cont. on ACPC; okay with most recent ABG (permissive hypercapnea) 7. Prognosis poor; CCt 31 minutes Subjective Date of service: 02/28/21 Principal diagnosis: DEISI Interval history: Orally intubated arterial blood gases have shown significant improvement yesterday but worse today. Remain on pressure control ventilation with PEEP of 10 at 70% FiO2 Objective Vital Signs - 12hr 02/28/21 02/28/21 02/28/21 01:15 01:30 01:45 Temperature Pulse Rate 103 H 102 H 103 H Pulse Rate [ From Monitor] Respiratory 19 34 H 34 H Rate Blood Pressure 124/74 127/74 123/71 O2 Sat by Pulse 93 94 93 Oximetry 02/28/21 02/28/21 02/28/21 02:00 02:15 02:30 Temperature Pulse Rate 103 H 102 H 101 H Pulse Rate [ From Monitor] Respiratory 22 34 H 34 H Rate Blood Pressure 120/69 119/72 116/71 O2 Sat by Pulse 95 Oximetry 02/28/21 02/28/21 02/28/21 02:45 03:00 03:15 Temperature Pulse Rate 101 H 100 H 100 H Pulse Rate [ From Monitor] Respiratory 34 H 34 H 34 H Rate Blood Pressure 118/70 117/69 125/75 O2 Sat by Pulse 94 94 Oximetry 02/28/21 02/28/21 02/28/21 03:30 03:45 03:48 Temperature Pulse Rate 101 H 102 H 102 H Pulse Rate [ From Monitor] Respiratory 34 H 35 H Rate Blood Pressure 129/76 123/74 123/74 O2 Sat by Pulse 97 Oximetry 02/28/21 02/28/21 02/28/21 04:00 04:15 04:30 Temperature 98.8 F Pulse Rate 101 H 101 H 101 H Pulse Rate [ 101 H From Monitor] Respiratory 24 34 H 34 H Rate Blood Pressure 128/74 119/73 121/73 O2 Sat by Pulse 96 96 Oximetry 02/28/21 02/28/21 02/28/21 04:45 05:00 05:15 Temperature Pulse Rate 101 H 102 H 102 H Pulse Rate [ From Monitor] Respiratory 34 H 34 H 34 H Rate Blood Pressure 121/74 126/76 131/75 O2 Sat by Pulse 94 96 94 Oximetry 02/28/21 02/28/21 02/28/21 05:30 05:45 06:00 Temperature Pulse Rate 103 H 102 H 102 H Pulse Rate [ From Monitor] Respiratory 16 34 H 34 H Rate Blood Pressure 133/78 134/77 125/73 O2 Sat by Pulse 94 96 97 Oximetry 02/28/21 02/28/21 02/28/21 06:15 06:30 06:45 Temperature Pulse Rate 102 H 102 H 104 H Pulse Rate [ From Monitor] Respiratory 16 21 35 H Rate Blood Pressure 122/72 123/68 122/71 O2 Sat by Pulse 97 94 94 Oximetry 02/28/21 02/28/21 02/28/21 07:00 07:15 07:30 Temperature Pulse Rate 103 H 104 H 103 H Pulse Rate [ From Monitor] Respiratory 34 H 34 H 18 Rate Blood Pressure 120/70 122/68 119/65 O2 Sat by Pulse 95 Oximetry 02/28/21 02/28/21 02/28/21 07:45 08:00 08:15 Temperature 98.2 F Pulse Rate 103 H 102 H 103 H Pulse Rate [ 104 H From Monitor] Respiratory 18 17 18 Rate Blood Pressure 122/65 118/65 125/68 O2 Sat by Pulse 94 95 95 Oximetry 02/28/21 02/28/21 02/28/21 08:16 08:30 08:45 Temperature Pulse Rate 103 H 105 H 104 H Pulse Rate [ From Monitor] Respiratory 18 18 Rate Blood Pressure 125/68 122/75 126/74 O2 Sat by Pulse 97 94 Oximetry 02/28/21 02/28/21 02/28/21 09:00 09:15 09:30 Temperature Pulse Rate 104 H 103 H 103 H Pulse Rate [ From Monitor] Respiratory 16 15 15 Rate Blood Pressure 122/69 123/71 123/68 O2 Sat by Pulse 95 96 Oximetry 02/28/21 02/28/21 02/28/21 09:45 10:00 10:15 Temperature Pulse Rate 105 H 104 H 103 H Pulse Rate [ From Monitor] Respiratory 15 12 13 Rate Blood Pressure 128/71 121/71 121/69 O2 Sat by Pulse 94 Oximetry 02/28/21 02/28/21 02/28/21 10:30 10:45 11:00 Temperature Pulse Rate 103 H 104 H 103 H Pulse Rate [ From Monitor] Respiratory 25 H 18 13 Rate Blood Pressure 120/65 120/63 115/63 O2 Sat by Pulse 96 95 95 Oximetry 02/28/21 02/28/21 02/28/21 11:15 11:53 12:00 Temperature 98.6 F Pulse Rate 104 H 107 H Pulse Rate [ From Monitor] Respiratory 15 Rate Blood Pressure 112/58 121/64 O2 Sat by Pulse 98 Oximetry Constitutional: other (sedated) Eyes: non-icteric ENT: other (orally intubated, critically ill) Neck: supple Effort: mildly labored (tachypneic) Ascultation: Bilateral: clear, other (coarse BS bilaterally) Percussion: Bilateral: not dull Cardiovascular: regular rate and rhythm (no mrg) Gastrointestinal: normoactive bowel sounds Integumentary: normal Extremities: no cyanosis, no edema, pink and warm Neurologic: unable to assess Psychiatric: other (unable to assess) CBC and BMP: 02/26/21 05:48 02/28/21 10:22 ABG, PT/INR, D-dimer: ABG ABG pH 7.260 (7.320-7.450) L 02/28/21 04:07 POC ABG pCO2 67.6 mmHg (32.0-48.0) H 02/28/21 04:07 ABG pCO2 62.7 mm Hg 02/23/21 04:00 POC ABG pO2 96.6 mmHg (83-108) 02/28/21 04:07 ABG pO2 119.4 mm Hg (80.0-90.0) H 02/23/21 04:00 POC ABG HCO3 29.7 02/28/21 04:07 ABG O2 Saturation 96.8 (0-100) 02/28/21 04:07 PT/INR, D-dimer PT 14.9 Sec. (12.2-14.9) 02/11/21 08:27 INR 1.17 (0.87-1.13) H 02/11/21 08:27 D-Dimer 6536.84 ng/mlDDU (0-234) H 02/25/21 09:03 Abnormal lab findings: Abnormal Labs 01/22/21 01/22/21 01/22/21 22:39 22:57 22:57 WBC RBC Hgb Hct MCV MCH MCHC RDW Plt Count Lymph % (Auto) 6.6 L Lymph # (Auto) 0.5 L Seg Neutrophils % 87.6 H Seg Neuts % (Manual) Lymphocytes % (Manual) Monocytes % (Manual) Nucleated RBC % Seg Neutrophils # Seg Neutrophils # Man Lymphocytes # (Manual) Monocytes # (Manual) Eosinophils # (Manual) INR D-Dimer ABG pH POC ABG pCO2 POC ABG pO2 ABG pO2 ABG HCO3 ABG O2 Saturation ABG Base Excess ABG Hemoglobin ABG Oxyhemoglobin ABG Sodium ABG Potassium ABG Chloride ABG Glucose Oxyhemoglobin Carboxyhemoglobin Sodium 129 L Potassium 3.4 L Chloride 90.4 L Carbon Dioxide BUN 34 H Creatinine 1.5 H Glucose 146 H POC Glucose Hemoglobin A1c Lactic Acid Calcium 7.8 L Phosphorus Magnesium Ferritin Total Bilirubin AST 75 H ALT 57 H Lactate Dehydrogenase C-Reactive Protein Albumin 2.9 L Triglycerides Arterial Blood Glucose Arterial Blood Ionized Calcium Urine Creatinine 301.2 H Coronavirus (PCR) Crossmatch 01/22/21 01/22/21 01/22/21 22:57 22:57 22:57 WBC RBC Hgb Hct MCV MCH MCHC RDW Plt Count Lymph % (Auto) Lymph # (Auto) Seg Neutrophils % Seg Neuts % (Manual) Lymphocytes % (Manual) Monocytes % (Manual) Nucleated RBC % Seg Neutrophils # Seg Neutrophils # Man Lymphocytes # (Manual) Monocytes # (Manual) Eosinophils # (Manual) INR D-Dimer 1173.89 H ABG pH POC ABG pCO2 POC ABG pO2 ABG pO2 ABG HCO3 ABG O2 Saturation ABG Base Excess ABG Hemoglobin ABG Oxyhemoglobin ABG Sodium ABG Potassium ABG Chloride ABG Glucose Oxyhemoglobin Carboxyhemoglobin Sodium Potassium Chloride Carbon Dioxide BUN Creatinine Glucose 149 H POC Glucose Hemoglobin A1c Lactic Acid 2.10 H* Calcium Phosphorus Magnesium Ferritin Total Bilirubin AST ALT Lactate Dehydrogenase 685 H C-Reactive Protein 30.40 H Albumin Triglycerides Arterial Blood Glucose Arterial Blood Ionized Calcium Urine Creatinine Coronavirus (PCR) Crossmatch 01/22/21 01/23/21 01/23/21 22:57 08:41 10:01 WBC RBC Hgb Hct MCV MCH MCHC RDW Plt Count Lymph % (Auto) Lymph # (Auto) Seg Neutrophils % Seg Neuts % (Manual) Lymphocytes % (Manual) Monocytes % (Manual) Nucleated RBC % Seg Neutrophils # Seg Neutrophils # Man Lymphocytes # (Manual) Monocytes # (Manual) Eosinophils # (Manual) INR D-Dimer ABG pH POC ABG pCO2 POC ABG pO2 ABG pO2 ABG HCO3 ABG O2 Saturation ABG Base Excess ABG Hemoglobin ABG Oxyhemoglobin ABG Sodium ABG Potassium ABG Chloride ABG Glucose Oxyhemoglobin Carboxyhemoglobin Sodium 131 L Potassium Chloride 88.7 L Carbon Dioxide 18 L BUN 36 H Creatinine 1.6 H Glucose 147 H POC Glucose Hemoglobin A1c Lactic Acid Calcium 7.5 L Phosphorus Magnesium Ferritin 1207.0 H Total Bilirubin AST ALT Lactate Dehydrogenase C-Reactive Protein Albumin Triglycerides Arterial Blood Glucose Arterial Blood Ionized Calcium Urine Creatinine Coronavirus (PCR) Positive A Crossmatch 01/23/21 01/23/21 01/24/21 20:49 Unknown 00:10 WBC RBC Hgb Hct MCV MCH MCHC RDW Plt Count Lymph % (Auto) Lymph # (Auto) Seg Neutrophils % Seg Neuts % (Manual) Lymphocytes % (Manual) Monocytes % (Manual) Nucleated RBC % Seg Neutrophils # Seg Neutrophils # Man Lymphocytes # (Manual) Monocytes # (Manual) Eosinophils # (Manual) INR D-Dimer ABG pH POC ABG pCO2 POC ABG pO2 ABG pO2 165.4 H ABG HCO3 ABG O2 Saturation ABG Base Excess -2.5 L ABG Hemoglobin ABG Oxyhemoglobin ABG Sodium ABG Potassium ABG Chloride ABG Glucose Oxyhemoglobin Carboxyhemoglobin Sodium 130 L Potassium Chloride 91.0 L Carbon Dioxide 20 L BUN 52 H Creatinine 3.8 H D Glucose 150 H POC Glucose 125 H Hemoglobin A1c Lactic Acid Calcium 8.0 L Phosphorus Magnesium Ferritin Total Bilirubin AST 42 H ALT Lactate Dehydrogenase C-Reactive Protein Albumin 2.4 L Triglycerides Arterial Blood Glucose Arterial Blood Ionized Calcium Urine Creatinine Coronavirus (PCR) Crossmatch 01/24/21 01/24/21 01/24/21 05:05 05:05 05:05 WBC 14.0 H RBC Hgb Hct MCV 95 H MCH 33 H MCHC RDW Plt Count Lymph % (Auto) Lymph # (Auto) Seg Neutrophils % Seg Neuts % (Manual) 91.0 H Lymphocytes % (Manual) 4.0 L Monocytes % (Manual) Nucleated RBC % Seg Neutrophils # Seg Neutrophils # Man 12.7 H Lymphocytes # (Manual) 0.6 L Monocytes # (Manual) Eosinophils # (Manual) INR D-Dimer 6159.48 H ABG pH POC ABG pCO2 POC ABG pO2 ABG pO2 ABG HCO3 ABG O2 Saturation ABG Base Excess ABG Hemoglobin ABG Oxyhemoglobin ABG Sodium ABG Potassium ABG Chloride ABG Glucose Oxyhemoglobin Carboxyhemoglobin Sodium Potassium Chloride Carbon Dioxide BUN Creatinine Glucose POC Glucose Hemoglobin A1c Lactic Acid Calcium Phosphorus Magnesium Ferritin 1178.0 H Total Bilirubin AST ALT Lactate Dehydrogenase C-Reactive Protein Albumin Triglycerides Arterial Blood Glucose Arterial Blood Ionized Calcium Urine Creatinine Coronavirus (PCR) Crossmatch 01/24/21 01/24/21 01/24/21 05:05 05:05 05:05 WBC RBC Hgb Hct MCV MCH MCHC RDW Plt Count Lymph % (Auto) Lymph # (Auto) Seg Neutrophils % Seg Neuts % (Manual) Lymphocytes % (Manual) Monocytes % (Manual) Nucleated RBC % Seg Neutrophils # Seg Neutrophils # Man Lymphocytes # (Manual) Monocytes # (Manual) Eosinophils # (Manual) INR D-Dimer ABG pH POC ABG pCO2 POC ABG pO2 ABG pO2 ABG HCO3 ABG O2 Saturation ABG Base Excess ABG Hemoglobin ABG Oxyhemoglobin ABG Sodium ABG Potassium ABG Chloride ABG Glucose Oxyhemoglobin Carboxyhemoglobin Sodium 132 L Potassium Chloride 93.1 L Carbon Dioxide 21 L BUN 57 H Creatinine 3.7 H Glucose 133 H POC Glucose Hemoglobin A1c Lactic Acid 2.20 H* Calcium 7.7 L Phosphorus Magnesium Ferritin Total Bilirubin AST ALT Lactate Dehydrogenase 658 H C-Reactive Protein 33.20 H Albumin 2.4 L Triglycerides Arterial Blood Glucose Arterial Blood Ionized Calcium Urine Creatinine Coronavirus (PCR) Crossmatch 01/24/21 01/24/21 01/24/21 05:34 06:00 17:35 WBC RBC Hgb Hct MCV MCH MCHC RDW Plt Count Lymph % (Auto) Lymph # (Auto) Seg Neutrophils % Seg Neuts % (Manual) Lymphocytes % (Manual) Monocytes % (Manual) Nucleated RBC % Seg Neutrophils # Seg Neutrophils # Man Lymphocytes # (Manual) Monocytes # (Manual) Eosinophils # (Manual) INR D-Dimer ABG pH POC ABG pCO2 POC ABG pO2 ABG pO2 ABG HCO3 ABG O2 Saturation ABG Base Excess ABG Hemoglobin ABG Oxyhemoglobin ABG Sodium ABG Potassium ABG Chloride ABG Glucose Oxyhemoglobin Carboxyhemoglobin Sodium Potassium Chloride Carbon Dioxide BUN Creatinine Glucose POC Glucose 136 H 137 H Hemoglobin A1c Lactic Acid Calcium Phosphorus Magnesium 2.80 H Ferritin Total Bilirubin AST ALT Lactate Dehydrogenase C-Reactive Protein Albumin Triglycerides Arterial Blood Glucose Arterial Blood Ionized Calcium Urine Creatinine Coronavirus (PCR) Crossmatch 01/25/21 01/25/21 01/25/21 04:15 05:40 05:40 WBC RBC Hgb Hct MCV 95 H MCH 33 H MCHC 35 H RDW Plt Count Lymph % (Auto) Lymph # (Auto) Seg Neutrophils % Seg Neuts % (Manual) 95.0 H Lymphocytes % (Manual) 3.0 L Monocytes % (Manual) Nucleated RBC % Seg Neutrophils # Seg Neutrophils # Man 7.8 H Lymphocytes # (Manual) 0.2 L Monocytes # (Manual) Eosinophils # (Manual) INR D-Dimer ABG pH POC ABG pCO2 POC ABG pO2 63.2 L ABG pO2 ABG HCO3 ABG O2 Saturation ABG Base Excess ABG Hemoglobin ABG Oxyhemoglobin 89.6 L ABG Sodium ABG Potassium ABG Chloride ABG Glucose 165 H Oxyhemoglobin Carboxyhemoglobin 0.3 L Sodium Potassium Chloride Carbon Dioxide BUN 67 H Creatinine 3.4 H Glucose 153 H POC Glucose Hemoglobin A1c Lactic Acid Calcium 7.5 L Phosphorus Magnesium Ferritin Total Bilirubin 1.40 H AST 62 H ALT Lactate Dehydrogenase C-Reactive Protein Albumin 2.6 L Triglycerides Arterial Blood Glucose 165 H Arterial Blood Ionized Calcium 4.3 L Urine Creatinine Coronavirus (PCR) Crossmatch 01/25/21 01/25/21 01/25/21 05:59 12:00 17:17 WBC RBC Hgb Hct MCV MCH MCHC RDW Plt Count Lymph % (Auto) Lymph # (Auto) Seg Neutrophils % Seg Neuts % (Manual) Lymphocytes % (Manual) Monocytes % (Manual) Nucleated RBC % Seg Neutrophils # Seg Neutrophils # Man Lymphocytes # (Manual) Monocytes # (Manual) Eosinophils # (Manual) INR D-Dimer ABG pH POC ABG pCO2 POC ABG pO2 ABG pO2 ABG HCO3 ABG O2 Saturation ABG Base Excess ABG Hemoglobin ABG Oxyhemoglobin ABG Sodium ABG Potassium ABG Chloride ABG Glucose Oxyhemoglobin Carboxyhemoglobin Sodium Potassium Chloride Carbon Dioxide BUN Creatinine Glucose POC Glucose 140 H 143 H 149 H Hemoglobin A1c Lactic Acid Calcium Phosphorus Magnesium Ferritin Total Bilirubin AST ALT Lactate Dehydrogenase C-Reactive Protein Albumin Triglycerides Arterial Blood Glucose Arterial Blood Ionized Calcium Urine Creatinine Coronavirus (PCR) Crossmatch 01/25/21 01/26/21 01/26/21 23:41 03:43 05:46 WBC RBC Hgb Hct MCV MCH MCHC RDW Plt Count Lymph % (Auto) Lymph # (Auto) Seg Neutrophils % Seg Neuts % (Manual) Lymphocytes % (Manual) Monocytes % (Manual) Nucleated RBC % Seg Neutrophils # Seg Neutrophils # Man Lymphocytes # (Manual) Monocytes # (Manual) Eosinophils # (Manual) INR D-Dimer ABG pH POC ABG pCO2 POC ABG pO2 70.0 L ABG pO2 ABG HCO3 ABG O2 Saturation ABG Base Excess ABG Hemoglobin ABG Oxyhemoglobin 91.9 L ABG Sodium ABG Potassium ABG Chloride 109.0 H ABG Glucose 165 H Oxyhemoglobin Carboxyhemoglobin Sodium Potassium Chloride Carbon Dioxide BUN Creatinine Glucose POC Glucose 132 H 161 H Hemoglobin A1c Lactic Acid Calcium Phosphorus Magnesium Ferritin Total Bilirubin AST ALT Lactate Dehydrogenase C-Reactive Protein Albumin Triglycerides Arterial Blood Glucose 165 H Arterial Blood Ionized Calcium 4.5 L Urine Creatinine Coronavirus (PCR) Crossmatch 01/26/21 01/26/21 01/26/21 05:47 05:47 05:47 WBC RBC Hgb Hct 35.3 L MCV 96 H MCH 33 H MCHC RDW Plt Count Lymph % (Auto) Lymph # (Auto) Seg Neutrophils % Seg Neuts % (Manual) 96.0 H Lymphocytes % (Manual) 2.0 L Monocytes % (Manual) Nucleated RBC % Seg Neutrophils # Seg Neutrophils # Man Lymphocytes # (Manual) 0.1 L Monocytes # (Manual) Eosinophils # (Manual) INR D-Dimer > 06000 H ABG pH POC ABG pCO2 POC ABG pO2 ABG pO2 ABG HCO3 ABG O2 Saturation ABG Base Excess ABG Hemoglobin ABG Oxyhemoglobin ABG Sodium ABG Potassium ABG Chloride ABG Glucose Oxyhemoglobin Carboxyhemoglobin Sodium Potassium Chloride Carbon Dioxide BUN 57 H Creatinine 2.2 H Glucose 185 H POC Glucose Hemoglobin A1c Lactic Acid Calcium 8.1 L Phosphorus Magnesium Ferritin Total Bilirubin AST ALT Lactate Dehydrogenase C-Reactive Protein Albumin Triglycerides Arterial Blood Glucose Arterial Blood Ionized Calcium Urine Creatinine Coronavirus (PCR) Crossmatch 01/26/21 01/26/21 01/26/21 05:47 05:47 05:47 WBC RBC Hgb Hct MCV MCH MCHC RDW Plt Count Lymph % (Auto) Lymph # (Auto) Seg Neutrophils % Seg Neuts % (Manual) Lymphocytes % (Manual) Monocytes % (Manual) Nucleated RBC % Seg Neutrophils # Seg Neutrophils # Man Lymphocytes # (Manual) Monocytes # (Manual) Eosinophils # (Manual) INR D-Dimer ABG pH POC ABG pCO2 POC ABG pO2 ABG pO2 ABG HCO3 ABG O2 Saturation ABG Base Excess ABG Hemoglobin ABG Oxyhemoglobin ABG Sodium ABG Potassium ABG Chloride ABG Glucose Oxyhemoglobin Carboxyhemoglobin Sodium Potassium Chloride 107.1 H Carbon Dioxide BUN 56 H Creatinine 2.2 H Glucose 188 H POC Glucose Hemoglobin A1c Lactic Acid Calcium 8.0 L Phosphorus Magnesium Ferritin 1178.0 H Total Bilirubin 1.50 H AST ALT Lactate Dehydrogenase 588 H C-Reactive Protein 40.10 H Albumin 2.2 L Triglycerides Arterial Blood Glucose Arterial Blood Ionized Calcium Urine Creatinine Coronavirus (PCR) Crossmatch 01/26/21 01/26/21 01/26/21 11:34 18:17 23:20 WBC RBC Hgb Hct MCV MCH MCHC RDW Plt Count Lymph % (Auto) Lymph # (Auto) Seg Neutrophils % Seg Neuts % (Manual) Lymphocytes % (Manual) Monocytes % (Manual) Nucleated RBC % Seg Neutrophils # Seg Neutrophils # Man Lymphocytes # (Manual) Monocytes # (Manual) Eosinophils # (Manual) INR D-Dimer ABG pH POC ABG pCO2 POC ABG pO2 ABG pO2 ABG HCO3 ABG O2 Saturation ABG Base Excess ABG Hemoglobin ABG Oxyhemoglobin ABG Sodium ABG Potassium ABG Chloride ABG Glucose Oxyhemoglobin Carboxyhemoglobin Sodium Potassium Chloride Carbon Dioxide BUN Creatinine Glucose POC Glucose 129 H 205 H 155 H Hemoglobin A1c Lactic Acid Calcium Phosphorus Magnesium Ferritin Total Bilirubin AST ALT Lactate Dehydrogenase C-Reactive Protein Albumin Triglycerides Arterial Blood Glucose Arterial Blood Ionized Calcium Urine Creatinine Coronavirus (PCR) Crossmatch 01/27/21 01/27/21 01/27/21 02:45 05:29 05:29 WBC RBC 3.58 L Hgb 11.7 L Hct 34.9 L MCV 97 H MCH 33 H MCHC RDW Plt Count Lymph % (Auto) Lymph # (Auto) Seg Neutrophils % Seg Neuts % (Manual) 88.0 H Lymphocytes % (Manual) 7.0 L Monocytes % (Manual) Nucleated RBC % Seg Neutrophils # Seg Neutrophils # Man Lymphocytes # (Manual) 0.5 L Monocytes # (Manual) Eosinophils # (Manual) INR D-Dimer ABG pH 7.319 L POC ABG pCO2 50.7 H POC ABG pO2 63.0 L ABG pO2 ABG HCO3 ABG O2 Saturation ABG Base Excess ABG Hemoglobin ABG Oxyhemoglobin ABG Sodium 145.2 H ABG Potassium 5.1 H ABG Chloride 114.0 H ABG Glucose 178 H Oxyhemoglobin Carboxyhemoglobin Sodium Potassium Chloride Carbon Dioxide BUN Creatinine Glucose POC Glucose Hemoglobin A1c Lactic Acid Calcium Phosphorus Magnesium 4.00 H Ferritin Total Bilirubin AST ALT Lactate Dehydrogenase C-Reactive Protein Albumin Triglycerides Arterial Blood Glucose 178 H Arterial Blood Ionized Calcium Urine Creatinine Coronavirus (PCR) Crossmatch 01/27/21 01/27/21 01/27/21 05:29 05:29 05:31 WBC RBC Hgb Hct MCV MCH MCHC RDW Plt Count Lymph % (Auto) Lymph # (Auto) Seg Neutrophils % Seg Neuts % (Manual) Lymphocytes % (Manual) Monocytes % (Manual) Nucleated RBC % Seg Neutrophils # Seg Neutrophils # Man Lymphocytes # (Manual) Monocytes # (Manual) Eosinophils # (Manual) INR D-Dimer ABG pH POC ABG pCO2 POC ABG pO2 ABG pO2 ABG HCO3 ABG O2 Saturation ABG Base Excess ABG Hemoglobin ABG Oxyhemoglobin ABG Sodium ABG Potassium ABG Chloride ABG Glucose Oxyhemoglobin Carboxyhemoglobin Sodium Potassium 5.2 H Chloride 109.6 H Carbon Dioxide BUN 67 H Creatinine 2.8 H Glucose 195 H POC Glucose 176 H Hemoglobin A1c Lactic Acid Calcium 7.9 L Phosphorus Magnesium Ferritin Total Bilirubin AST ALT Lactate Dehydrogenase C-Reactive Protein Albumin Triglycerides 160 H Arterial Blood Glucose Arterial Blood Ionized Calcium Urine Creatinine Coronavirus (PCR) Crossmatch 01/27/21 01/27/21 01/27/21 11:27 18:08 23:30 WBC RBC Hgb Hct MCV MCH MCHC RDW Plt Count Lymph % (Auto) Lymph # (Auto) Seg Neutrophils % Seg Neuts % (Manual) Lymphocytes % (Manual) Monocytes % (Manual) Nucleated RBC % Seg Neutrophils # Seg Neutrophils # Man Lymphocytes # (Manual) Monocytes # (Manual) Eosinophils # (Manual) INR D-Dimer ABG pH POC ABG pCO2 POC ABG pO2 ABG pO2 ABG HCO3 ABG O2 Saturation ABG Base Excess ABG Hemoglobin ABG Oxyhemoglobin ABG Sodium ABG Potassium ABG Chloride ABG Glucose Oxyhemoglobin Carboxyhemoglobin Sodium Potassium Chloride Carbon Dioxide BUN Creatinine Glucose POC Glucose 189 H 212 H 175 H Hemoglobin A1c Lactic Acid Calcium Phosphorus Magnesium Ferritin Total Bilirubin AST ALT Lactate Dehydrogenase C-Reactive Protein Albumin Triglycerides Arterial Blood Glucose Arterial Blood Ionized Calcium Urine Creatinine Coronavirus (PCR) Crossmatch 01/28/21 01/28/21 01/28/21 03:58 04:00 04:00 WBC RBC Hgb Hct MCV MCH MCHC RDW Plt Count Lymph % (Auto) Lymph # (Auto) Seg Neutrophils % Seg Neuts % (Manual) Lymphocytes % (Manual) Monocytes % (Manual) Nucleated RBC % Seg Neutrophils # Seg Neutrophils # Man Lymphocytes # (Manual) Monocytes # (Manual) Eosinophils # (Manual) INR D-Dimer > 85155 H ABG pH POC ABG pCO2 POC ABG pO2 52.9 L ABG pO2 ABG HCO3 ABG O2 Saturation ABG Base Excess ABG Hemoglobin ABG Oxyhemoglobin 84.1 L ABG Sodium 148.9 H ABG Potassium ABG Chloride 117.0 H ABG Glucose 194 H Oxyhemoglobin Carboxyhemoglobin Sodium Potassium Chloride Carbon Dioxide BUN Creatinine Glucose POC Glucose Hemoglobin A1c Lactic Acid Calcium Phosphorus Magnesium Ferritin Total Bilirubin AST ALT Lactate Dehydrogenase 679 H C-Reactive Protein 17.10 H Albumin Triglycerides Arterial Blood Glucose 194 H Arterial Blood Ionized Calcium Urine Creatinine Coronavirus (PCR) Crossmatch 01/28/21 01/28/21 01/28/21 04:00 05:00 06:00 WBC RBC 3.59 L Hgb 11.6 L Hct 34.8 L MCV 97 H MCH MCHC RDW Plt Count Lymph % (Auto) Lymph # (Auto) Seg Neutrophils % Seg Neuts % (Manual) 96.0 H Lymphocytes % (Manual) 3.0 L Monocytes % (Manual) Nucleated RBC % Seg Neutrophils # Seg Neutrophils # Man Lymphocytes # (Manual) 0.2 L Monocytes # (Manual) Eosinophils # (Manual) INR D-Dimer ABG pH POC ABG pCO2 POC ABG pO2 ABG pO2 ABG HCO3 ABG O2 Saturation ABG Base Excess ABG Hemoglobin ABG Oxyhemoglobin ABG Sodium ABG Potassium ABG Chloride ABG Glucose Oxyhemoglobin Carboxyhemoglobin Sodium Potassium Chloride Carbon Dioxide BUN Creatinine Glucose POC Glucose 159 H Hemoglobin A1c Lactic Acid Calcium Phosphorus Magnesium Ferritin 798.0 H Total Bilirubin AST ALT Lactate Dehydrogenase C-Reactive Protein Albumin Triglycerides Arterial Blood Glucose Arterial Blood Ionized Calcium Urine Creatinine Coronavirus (PCR) Crossmatch 01/28/21 01/28/21 01/28/21 06:00 06:00 08:12 WBC RBC Hgb Hct MCV MCH MCHC RDW Plt Count Lymph % (Auto) Lymph # (Auto) Seg Neutrophils % Seg Neuts % (Manual) Lymphocytes % (Manual) Monocytes % (Manual) Nucleated RBC % Seg Neutrophils # Seg Neutrophils # Man Lymphocytes # (Manual) Monocytes # (Manual) Eosinophils # (Manual) INR D-Dimer ABG pH POC ABG pCO2 POC ABG pO2 ABG pO2 ABG HCO3 ABG O2 Saturation ABG Base Excess ABG Hemoglobin ABG Oxyhemoglobin ABG Sodium ABG Potassium ABG Chloride ABG Glucose Oxyhemoglobin Carboxyhemoglobin Sodium Potassium Chloride 111.9 H Carbon Dioxide BUN 59 H Creatinine 2.2 H Glucose 189 H POC Glucose 181 H Hemoglobin A1c Lactic Acid Calcium 8.1 L Phosphorus Magnesium 3.20 H Ferritin Total Bilirubin AST ALT Lactate Dehydrogenase C-Reactive Protein Albumin Triglycerides Arterial Blood Glucose Arterial Blood Ionized Calcium Urine Creatinine Coronavirus (PCR) Crossmatch 01/28/21 01/28/21 01/28/21 12:03 16:43 23:51 WBC RBC Hgb Hct MCV MCH MCHC RDW Plt Count Lymph % (Auto) Lymph # (Auto) Seg Neutrophils % Seg Neuts % (Manual) Lymphocytes % (Manual) Monocytes % (Manual) Nucleated RBC % Seg Neutrophils # Seg Neutrophils # Man Lymphocytes # (Manual) Monocytes # (Manual) Eosinophils # (Manual) INR D-Dimer ABG pH POC ABG pCO2 POC ABG pO2 ABG pO2 ABG HCO3 ABG O2 Saturation ABG Base Excess ABG Hemoglobin ABG Oxyhemoglobin ABG Sodium ABG Potassium ABG Chloride ABG Glucose Oxyhemoglobin Carboxyhemoglobin Sodium Potassium Chloride Carbon Dioxide BUN Creatinine Glucose POC Glucose 164 H 198 H 196 H Hemoglobin A1c Lactic Acid Calcium Phosphorus Magnesium Ferritin Total Bilirubin AST ALT Lactate Dehydrogenase C-Reactive Protein Albumin Triglycerides Arterial Blood Glucose Arterial Blood Ionized Calcium Urine Creatinine Coronavirus (PCR) Crossmatch 01/29/21 01/29/21 01/29/21 05:00 05:23 06:00 WBC RBC Hgb Hct MCV MCH MCHC RDW Plt Count Lymph % (Auto) Lymph # (Auto) Seg Neutrophils % Seg Neuts % (Manual) Lymphocytes % (Manual) Monocytes % (Manual) Nucleated RBC % Seg Neutrophils # Seg Neutrophils # Man Lymphocytes # (Manual) Monocytes # (Manual) Eosinophils # (Manual) INR D-Dimer ABG pH 7.119 L POC ABG pCO2 87.1 H POC ABG pO2 ABG pO2 ABG HCO3 ABG O2 Saturation ABG Base Excess ABG Hemoglobin ABG Oxyhemoglobin ABG Sodium 152.5 H ABG Potassium 5.7 H ABG Chloride 120.0 H ABG Glucose 217 H Oxyhemoglobin Carboxyhemoglobin Sodium 151 H Potassium 5.9 H D Chloride 117.8 H Carbon Dioxide BUN 54 H Creatinine 2.2 H Glucose 208 H POC Glucose 180 H Hemoglobin A1c Lactic Acid Calcium 7.9 L Phosphorus Magnesium Ferritin Total Bilirubin AST ALT Lactate Dehydrogenase C-Reactive Protein Albumin Triglycerides Arterial Blood Glucose 217 H Arterial Blood Ionized Calcium Urine Creatinine Coronavirus (PCR) Crossmatch 01/29/21 01/29/21 01/29/21 12:29 17:28 18:05 WBC RBC Hgb Hct MCV MCH MCHC RDW Plt Count Lymph % (Auto) Lymph # (Auto) Seg Neutrophils % Seg Neuts % (Manual) Lymphocytes % (Manual) Monocytes % (Manual) Nucleated RBC % Seg Neutrophils # Seg Neutrophils # Man Lymphocytes # (Manual) Monocytes # (Manual) Eosinophils # (Manual) INR D-Dimer ABG pH POC ABG pCO2 POC ABG pO2 ABG pO2 ABG HCO3 ABG O2 Saturation ABG Base Excess ABG Hemoglobin ABG Oxyhemoglobin ABG Sodium ABG Potassium ABG Chloride ABG Glucose Oxyhemoglobin Carboxyhemoglobin Sodium 151 H Potassium 5.5 H Chloride 118.2 H Carbon Dioxide BUN 52 H Creatinine 2.2 H Glucose 224 H POC Glucose 181 H 203 H Hemoglobin A1c Lactic Acid Calcium 8.0 L Phosphorus Magnesium Ferritin Total Bilirubin AST ALT Lactate Dehydrogenase C-Reactive Protein Albumin Triglycerides Arterial Blood Glucose Arterial Blood Ionized Calcium Urine Creatinine Coronavirus (PCR) Crossmatch 01/29/21 01/29/21 01/29/21 18:13 23:34 Unknown WBC RBC Hgb Hct MCV 101 H MCH MCHC RDW 15.7 H Plt Count Lymph % (Auto) Lymph # (Auto) Seg Neutrophils % Seg Neuts % (Manual) 95.0 H Lymphocytes % (Manual) 3.0 L Monocytes % (Manual) Nucleated RBC % Seg Neutrophils # Seg Neutrophils # Man 8.0 H Lymphocytes # (Manual) 0.3 L Monocytes # (Manual) Eosinophils # (Manual) INR D-Dimer ABG pH 7.223 L POC ABG pCO2 64.8 H POC ABG pO2 63.6 L ABG pO2 ABG HCO3 ABG O2 Saturation ABG Base Excess ABG Hemoglobin ABG Oxyhemoglobin 89.4 L ABG Sodium 152.9 H ABG Potassium 5.3 H ABG Chloride 121.0 H ABG Glucose 227 H Oxyhemoglobin Carboxyhemoglobin Sodium Potassium Chloride Carbon Dioxide BUN Creatinine Glucose POC Glucose 198 H Hemoglobin A1c Lactic Acid Calcium Phosphorus Magnesium Ferritin Total Bilirubin AST ALT Lactate Dehydrogenase C-Reactive Protein Albumin Triglycerides Arterial Blood Glucose 227 H Arterial Blood Ionized Calcium Urine Creatinine Coronavirus (PCR) Crossmatch 01/30/21 01/30/21 01/30/21 04:00 04:00 04:00 WBC RBC Hgb Hct MCV MCH MCHC RDW Plt Count Lymph % (Auto) Lymph # (Auto) Seg Neutrophils % Seg Neuts % (Manual) Lymphocytes % (Manual) Monocytes % (Manual) Nucleated RBC % Seg Neutrophils # Seg Neutrophils # Man Lymphocytes # (Manual) Monocytes # (Manual) Eosinophils # (Manual) INR D-Dimer > 86853 H ABG pH POC ABG pCO2 POC ABG pO2 ABG pO2 ABG HCO3 ABG O2 Saturation ABG Base Excess ABG Hemoglobin ABG Oxyhemoglobin ABG Sodium ABG Potassium ABG Chloride ABG Glucose Oxyhemoglobin Carboxyhemoglobin Sodium Potassium Chloride Carbon Dioxide BUN Creatinine Glucose 234 H POC Glucose Hemoglobin A1c Lactic Acid Calcium Phosphorus Magnesium Ferritin 763.9 H Total Bilirubin AST ALT Lactate Dehydrogenase 424 H C-Reactive Protein 23.90 H Albumin Triglycerides Arterial Blood Glucose Arterial Blood Ionized Calcium Urine Creatinine Coronavirus (PCR) Crossmatch 01/30/21 01/30/21 01/30/21 04:24 05:00 05:16 WBC RBC 3.57 L Hgb 11.3 L Hct 35.4 L MCV 99 H MCH MCHC RDW 15.6 H Plt Count Lymph % (Auto) Lymph # (Auto) Seg Neutrophils % Seg Neuts % (Manual) 97.0 H Lymphocytes % (Manual) 1.0 L Monocytes % (Manual) Nucleated RBC % Seg Neutrophils # Seg Neutrophils # Man 8.6 H Lymphocytes # (Manual) 0.1 L Monocytes # (Manual) Eosinophils # (Manual) INR D-Dimer ABG pH 7.235 L POC ABG pCO2 69.7 H POC ABG pO2 61.0 L ABG pO2 ABG HCO3 ABG O2 Saturation ABG Base Excess ABG Hemoglobin ABG Oxyhemoglobin 89 L ABG Sodium 154.2 H ABG Potassium 5.4 H ABG Chloride 121.0 H ABG Glucose 247 H Oxyhemoglobin Carboxyhemoglobin Sodium Potassium Chloride Carbon Dioxide BUN Creatinine Glucose POC Glucose 238 H Hemoglobin A1c Lactic Acid Calcium Phosphorus Magnesium Ferritin Total Bilirubin AST ALT Lactate Dehydrogenase C-Reactive Protein Albumin Triglycerides Arterial Blood Glucose 247 H Arterial Blood Ionized Calcium Urine Creatinine Coronavirus (PCR) Crossmatch 01/30/21 01/30/21 01/30/21 06:00 11:28 12:00 WBC RBC Hgb Hct MCV MCH MCHC RDW Plt Count Lymph % (Auto) Lymph # (Auto) Seg Neutrophils % Seg Neuts % (Manual) Lymphocytes % (Manual) Monocytes % (Manual) Nucleated RBC % Seg Neutrophils # Seg Neutrophils # Man Lymphocytes # (Manual) Monocytes # (Manual) Eosinophils # (Manual) INR D-Dimer ABG pH POC ABG pCO2 POC ABG pO2 ABG pO2 ABG HCO3 ABG O2 Saturation ABG Base Excess ABG Hemoglobin ABG Oxyhemoglobin ABG Sodium ABG Potassium ABG Chloride ABG Glucose Oxyhemoglobin Carboxyhemoglobin Sodium 152 H Potassium 5.3 H Chloride 120.5 H Carbon Dioxide BUN 50 H Creatinine 2.3 H Glucose 239 H POC Glucose 153 H Hemoglobin A1c Lactic Acid Calcium 8.2 L Phosphorus Magnesium 2.60 H Ferritin Total Bilirubin AST ALT Lactate Dehydrogenase C-Reactive Protein Albumin Triglycerides 293 H Arterial Blood Glucose Arterial Blood Ionized Calcium Urine Creatinine 53.0 H Coronavirus (PCR) Crossmatch 01/30/21 01/30/21 01/31/21 18:49 23:06 04:00 WBC RBC Hgb Hct MCV MCH MCHC RDW Plt Count Lymph % (Auto) Lymph # (Auto) Seg Neutrophils % Seg Neuts % (Manual) Lymphocytes % (Manual) Monocytes % (Manual) Nucleated RBC % Seg Neutrophils # Seg Neutrophils # Man Lymphocytes # (Manual) Monocytes # (Manual) Eosinophils # (Manual) INR D-Dimer ABG pH POC ABG pCO2 POC ABG pO2 ABG pO2 ABG HCO3 ABG O2 Saturation ABG Base Excess ABG Hemoglobin ABG Oxyhemoglobin ABG Sodium ABG Potassium ABG Chloride ABG Glucose Oxyhemoglobin Carboxyhemoglobin Sodium 156 H Potassium 5.9 H Chloride 122.6 H Carbon Dioxide BUN 61 H Creatinine 3.2 H Glucose 205 H POC Glucose 220 H 192 H Hemoglobin A1c Lactic Acid Calcium 8.0 L Phosphorus Magnesium Ferritin Total Bilirubin AST ALT Lactate Dehydrogenase C-Reactive Protein Albumin Triglycerides Arterial Blood Glucose Arterial Blood Ionized Calcium Urine Creatinine Coronavirus (PCR) Crossmatch 01/31/21 01/31/21 01/31/21 04:40 05:17 11:33 WBC RBC Hgb Hct MCV MCH MCHC RDW Plt Count Lymph % (Auto) Lymph # (Auto) Seg Neutrophils % Seg Neuts % (Manual) Lymphocytes % (Manual) Monocytes % (Manual) Nucleated RBC % Seg Neutrophils # Seg Neutrophils # Man Lymphocytes # (Manual) Monocytes # (Manual) Eosinophils # (Manual) INR D-Dimer ABG pH 7.161 L* POC ABG pCO2 POC ABG pO2 ABG pO2 142.2 H ABG HCO3 28.3 H ABG O2 Saturation ABG Base Excess -3.2 L ABG Hemoglobin ABG Oxyhemoglobin ABG Sodium ABG Potassium ABG Chloride ABG Glucose Oxyhemoglobin Carboxyhemoglobin Sodium Potassium Chloride Carbon Dioxide BUN Creatinine Glucose POC Glucose 200 H 167 H Hemoglobin A1c Lactic Acid Calcium Phosphorus Magnesium Ferritin Total Bilirubin AST ALT Lactate Dehydrogenase C-Reactive Protein Albumin Triglycerides Arterial Blood Glucose Arterial Blood Ionized Calcium Urine Creatinine Coronavirus (PCR) Crossmatch 01/31/21 01/31/21 01/31/21 14:00 17:10 23:24 WBC RBC Hgb Hct MCV MCH MCHC RDW Plt Count Lymph % (Auto) Lymph # (Auto) Seg Neutrophils % Seg Neuts % (Manual) Lymphocytes % (Manual) Monocytes % (Manual) Nucleated RBC % Seg Neutrophils # Seg Neutrophils # Man Lymphocytes # (Manual) Monocytes # (Manual) Eosinophils # (Manual) INR D-Dimer ABG pH 7.205 L POC ABG pCO2 POC ABG pO2 ABG pO2 90.9 H ABG HCO3 26.5 H ABG O2 Saturation ABG Base Excess -2.7 L ABG Hemoglobin 12.3 L ABG Oxyhemoglobin ABG Sodium ABG Potassium ABG Chloride ABG Glucose Oxyhemoglobin 93.9 L Carboxyhemoglobin Sodium Potassium Chloride Carbon Dioxide BUN Creatinine Glucose POC Glucose 190 H 203 H Hemoglobin A1c Lactic Acid Calcium Phosphorus Magnesium Ferritin Total Bilirubin AST ALT Lactate Dehydrogenase C-Reactive Protein Albumin Triglycerides Arterial Blood Glucose Arterial Blood Ionized Calcium Urine Creatinine Coronavirus (PCR) Crossmatch 02/01/21 02/01/21 02/01/21 05:15 06:22 10:20 WBC RBC Hgb Hct MCV MCH MCHC RDW Plt Count Lymph % (Auto) Lymph # (Auto) Seg Neutrophils % Seg Neuts % (Manual) Lymphocytes % (Manual) Monocytes % (Manual) Nucleated RBC % Seg Neutrophils # Seg Neutrophils # Man Lymphocytes # (Manual) Monocytes # (Manual) Eosinophils # (Manual) INR D-Dimer ABG pH 6.920 L* 7.116 L* POC ABG pCO2 POC ABG pO2 ABG pO2 102.9 H 113.1 H ABG HCO3 28.2 H ABG O2 Saturation 92.9 L ABG Base Excess -6.9 L -5.8 L ABG Hemoglobin 11.6 L 9.5 L ABG Oxyhemoglobin ABG Sodium ABG Potassium ABG Chloride ABG Glucose Oxyhemoglobin 90.5 L 94.6 L Carboxyhemoglobin Sodium Potassium Chloride Carbon Dioxide BUN Creatinine Glucose POC Glucose 221 H Hemoglobin A1c Lactic Acid Calcium Phosphorus Magnesium Ferritin Total Bilirubin AST ALT Lactate Dehydrogenase C-Reactive Protein Albumin Triglycerides Arterial Blood Glucose Arterial Blood Ionized Calcium Urine Creatinine Coronavirus (PCR) Crossmatch 02/01/21 02/01/21 02/01/21 11:12 12:35 16:00 WBC RBC Hgb Hct MCV MCH MCHC RDW Plt Count Lymph % (Auto) Lymph # (Auto) Seg Neutrophils % Seg Neuts % (Manual) Lymphocytes % (Manual) Monocytes % (Manual) Nucleated RBC % Seg Neutrophils # Seg Neutrophils # Man Lymphocytes # (Manual) Monocytes # (Manual) Eosinophils # (Manual) INR D-Dimer ABG pH 7.155 L* POC ABG pCO2 POC ABG pO2 ABG pO2 94.6 H ABG HCO3 ABG O2 Saturation ABG Base Excess -6.5 L ABG Hemoglobin 13.1 L ABG Oxyhemoglobin ABG Sodium ABG Potassium ABG Chloride ABG Glucose Oxyhemoglobin 93.7 L Carboxyhemoglobin Sodium 155 H Potassium 5.1 H Chloride 120.5 H Carbon Dioxide BUN 90 H Creatinine 6.1 H D Glucose 238 H POC Glucose 207 H Hemoglobin A1c Lactic Acid Calcium 7.4 L Phosphorus Magnesium Ferritin Total Bilirubin AST ALT Lactate Dehydrogenase C-Reactive Protein Albumin Triglycerides Arterial Blood Glucose Arterial Blood Ionized Calcium Urine Creatinine Coronavirus (PCR) Crossmatch 02/01/21 02/01/21 02/02/21 17:10 23:47 04:04 WBC RBC 3.02 L Hgb 9.8 L Hct 30.7 L MCV 102 H MCH MCHC RDW 15.6 H Plt Count Lymph % (Auto) 4.2 L Lymph # (Auto) 0.3 L Seg Neutrophils % Seg Neuts % (Manual) Lymphocytes % (Manual) Monocytes % (Manual) Nucleated RBC % Seg Neutrophils # Seg Neutrophils # Man Lymphocytes # (Manual) Monocytes # (Manual) Eosinophils # (Manual) INR D-Dimer ABG pH POC ABG pCO2 POC ABG pO2 ABG pO2 ABG HCO3 ABG O2 Saturation ABG Base Excess ABG Hemoglobin ABG Oxyhemoglobin ABG Sodium ABG Potassium ABG Chloride ABG Glucose Oxyhemoglobin Carboxyhemoglobin Sodium Potassium Chloride Carbon Dioxide BUN Creatinine Glucose POC Glucose 238 H 235 H Hemoglobin A1c Lactic Acid Calcium Phosphorus Magnesium Ferritin Total Bilirubin AST ALT Lactate Dehydrogenase C-Reactive Protein Albumin Triglycerides Arterial Blood Glucose Arterial Blood Ionized Calcium Urine Creatinine Coronavirus (PCR) Crossmatch 02/02/21 02/02/21 02/02/21 05:18 05:35 11:28 WBC RBC Hgb Hct MCV MCH MCHC RDW Plt Count Lymph % (Auto) Lymph # (Auto) Seg Neutrophils % Seg Neuts % (Manual) Lymphocytes % (Manual) Monocytes % (Manual) Nucleated RBC % Seg Neutrophils # Seg Neutrophils # Man Lymphocytes # (Manual) Monocytes # (Manual) Eosinophils # (Manual) INR D-Dimer ABG pH 7.195 L* POC ABG pCO2 POC ABG pO2 ABG pO2 72.5 L ABG HCO3 ABG O2 Saturation 91.2 L ABG Base Excess -5.3 L ABG Hemoglobin 6.0 L ABG Oxyhemoglobin ABG Sodium ABG Potassium ABG Chloride ABG Glucose Oxyhemoglobin 89.1 L Carboxyhemoglobin Sodium Potassium Chloride 110.4 H Carbon Dioxide BUN 92 H Creatinine Glucose POC Glucose 239 H Hemoglobin A1c Lactic Acid Calcium Phosphorus Magnesium Ferritin Total Bilirubin AST ALT Lactate Dehydrogenase C-Reactive Protein Albumin Triglycerides Arterial Blood Glucose Arterial Blood Ionized Calcium Urine Creatinine Coronavirus (PCR) Crossmatch 02/02/21 02/02/21 02/02/21 11:53 16:00 18:04 WBC RBC Hgb Hct MCV MCH MCHC RDW Plt Count Lymph % (Auto) Lymph # (Auto) Seg Neutrophils % Seg Neuts % (Manual) Lymphocytes % (Manual) Monocytes % (Manual) Nucleated RBC % Seg Neutrophils # Seg Neutrophils # Man Lymphocytes # (Manual) Monocytes # (Manual) Eosinophils # (Manual) INR D-Dimer ABG pH POC ABG pCO2 POC ABG pO2 ABG pO2 ABG HCO3 ABG O2 Saturation ABG Base Excess ABG Hemoglobin ABG Oxyhemoglobin ABG Sodium ABG Potassium ABG Chloride ABG Glucose Oxyhemoglobin Carboxyhemoglobin Sodium Potassium Chloride Carbon Dioxide BUN Creatinine Glucose POC Glucose 248 H 199 H Hemoglobin A1c 6.3 H Lactic Acid Calcium Phosphorus Magnesium Ferritin Total Bilirubin AST ALT Lactate Dehydrogenase C-Reactive Protein Albumin Triglycerides Arterial Blood Glucose Arterial Blood Ionized Calcium Urine Creatinine Coronavirus (PCR) Crossmatch 02/02/21 02/03/21 02/03/21 23:31 03:12 04:10 WBC RBC 3.06 L Hgb 9.7 L Hct 30.4 L MCV 99 H MCH MCHC RDW 15.3 H Plt Count Lymph % (Auto) 6.1 L Lymph # (Auto) 0.5 L Seg Neutrophils % 86.1 H Seg Neuts % (Manual) Lymphocytes % (Manual) Monocytes % (Manual) Nucleated RBC % Seg Neutrophils # Seg Neutrophils # Man Lymphocytes # (Manual) Monocytes # (Manual) Eosinophils # (Manual) INR D-Dimer ABG pH 7.199 L POC ABG pCO2 48.3 H POC ABG pO2 68.3 L ABG pO2 ABG HCO3 ABG O2 Saturation ABG Base Excess ABG Hemoglobin 10.2 L ABG Oxyhemoglobin 89.2 L ABG Sodium 155.0 H ABG Potassium 4.6 H ABG Chloride 121.0 H ABG Glucose 166 H Oxyhemoglobin Carboxyhemoglobin 0.3 L Sodium Potassium Chloride Carbon Dioxide BUN Creatinine Glucose POC Glucose 200 H Hemoglobin A1c Lactic Acid Calcium Phosphorus Magnesium Ferritin Total Bilirubin AST ALT Lactate Dehydrogenase C-Reactive Protein Albumin Triglycerides Arterial Blood Glucose 166 H Arterial Blood Ionized Calcium 4.1 L Urine Creatinine Coronavirus (PCR) Crossmatch 02/03/21 02/03/21 02/03/21 04:10 05:34 11:51 WBC RBC Hgb Hct MCV MCH MCHC RDW Plt Count Lymph % (Auto) Lymph # (Auto) Seg Neutrophils % Seg Neuts % (Manual) Lymphocytes % (Manual) Monocytes % (Manual) Nucleated RBC % Seg Neutrophils # Seg Neutrophils # Man Lymphocytes # (Manual) Monocytes # (Manual) Eosinophils # (Manual) INR D-Dimer ABG pH POC ABG pCO2 POC ABG pO2 ABG pO2 ABG HCO3 ABG O2 Saturation ABG Base Excess ABG Hemoglobin ABG Oxyhemoglobin ABG Sodium ABG Potassium ABG Chloride ABG Glucose Oxyhemoglobin Carboxyhemoglobin Sodium 154 H D Potassium Chloride 116.7 H Carbon Dioxide 20 L BUN 130 H Creatinine 9.2 H D Glucose 160 H POC Glucose 130 H 154 H Hemoglobin A1c Lactic Acid Calcium 6.7 L Phosphorus 8.60 H Magnesium Ferritin Total Bilirubin AST ALT Lactate Dehydrogenase C-Reactive Protein Albumin Triglycerides Arterial Blood Glucose Arterial Blood Ionized Calcium Urine Creatinine Coronavirus (PCR) Crossmatch 02/03/21 02/03/21 02/04/21 16:49 23:22 03:48 WBC RBC Hgb Hct MCV MCH MCHC RDW Plt Count Lymph % (Auto) Lymph # (Auto) Seg Neutrophils % Seg Neuts % (Manual) Lymphocytes % (Manual) Monocytes % (Manual) Nucleated RBC % Seg Neutrophils # Seg Neutrophils # Man Lymphocytes # (Manual) Monocytes # (Manual) Eosinophils # (Manual) INR D-Dimer ABG pH 7.201 L POC ABG pCO2 54.5 H POC ABG pO2 74.0 L ABG pO2 ABG HCO3 ABG O2 Saturation ABG Base Excess ABG Hemoglobin 9.7 L ABG Oxyhemoglobin 91.1 L ABG Sodium 146.2 H ABG Potassium ABG Chloride 114.0 H ABG Glucose 155 H Oxyhemoglobin Carboxyhemoglobin Sodium Potassium Chloride Carbon Dioxide BUN Creatinine Glucose POC Glucose 164 H 152 H Hemoglobin A1c Lactic Acid Calcium Phosphorus Magnesium Ferritin Total Bilirubin AST ALT Lactate Dehydrogenase C-Reactive Protein Albumin Triglycerides Arterial Blood Glucose 155 H Arterial Blood Ionized Calcium 3.9 L Urine Creatinine Coronavirus (PCR) Crossmatch 02/04/21 02/04/21 02/04/21 04:45 04:45 04:45 WBC RBC 2.75 L Hgb 9.1 L Hct 26.9 L MCV 98 H MCH 33 H MCHC RDW Plt Count Lymph % (Auto) 6.8 L Lymph # (Auto) 0.5 L Seg Neutrophils % 87.2 H Seg Neuts % (Manual) Lymphocytes % (Manual) Monocytes % (Manual) Nucleated RBC % Seg Neutrophils # Seg Neutrophils # Man Lymphocytes # (Manual) Monocytes # (Manual) Eosinophils # (Manual) INR D-Dimer ABG pH POC ABG pCO2 POC ABG pO2 ABG pO2 ABG HCO3 ABG O2 Saturation ABG Base Excess ABG Hemoglobin ABG Oxyhemoglobin ABG Sodium ABG Potassium ABG Chloride ABG Glucose Oxyhemoglobin Carboxyhemoglobin Sodium 149 H Potassium Chloride 111.5 H Carbon Dioxide BUN 99 H Creatinine 8.5 H Glucose 139 H POC Glucose Hemoglobin A1c Lactic Acid Calcium 6.8 L Phosphorus 8.40 H Magnesium Ferritin Total Bilirubin AST ALT Lactate Dehydrogenase C-Reactive Protein Albumin Triglycerides Arterial Blood Glucose Arterial Blood Ionized Calcium Urine Creatinine Coronavirus (PCR) Crossmatch 02/04/21 02/04/21 02/04/21 06:05 11:44 18:00 WBC RBC Hgb Hct MCV MCH MCHC RDW Plt Count Lymph % (Auto) Lymph # (Auto) Seg Neutrophils % Seg Neuts % (Manual) Lymphocytes % (Manual) Monocytes % (Manual) Nucleated RBC % Seg Neutrophils # Seg Neutrophils # Man Lymphocytes # (Manual) Monocytes # (Manual) Eosinophils # (Manual) INR D-Dimer ABG pH POC ABG pCO2 POC ABG pO2 ABG pO2 ABG HCO3 ABG O2 Saturation ABG Base Excess ABG Hemoglobin ABG Oxyhemoglobin ABG Sodium ABG Potassium ABG Chloride ABG Glucose Oxyhemoglobin Carboxyhemoglobin Sodium Potassium Chloride Carbon Dioxide BUN Creatinine Glucose POC Glucose 138 H 129 H 163 H Hemoglobin A1c Lactic Acid Calcium Phosphorus Magnesium Ferritin Total Bilirubin AST ALT Lactate Dehydrogenase C-Reactive Protein Albumin Triglycerides Arterial Blood Glucose Arterial Blood Ionized Calcium Urine Creatinine Coronavirus (PCR) Crossmatch 02/04/21 02/05/21 02/05/21 23:48 01:50 01:50 WBC RBC 2.43 L Hgb 8.3 L Hct 23.6 L MCV 97 H MCH 34 H MCHC 35 H RDW Plt Count 137 L Lymph % (Auto) 8.4 L Lymph # (Auto) 0.6 L Seg Neutrophils % 86.1 H Seg Neuts % (Manual) Lymphocytes % (Manual) Monocytes % (Manual) Nucleated RBC % Seg Neutrophils # Seg Neutrophils # Man Lymphocytes # (Manual) Monocytes # (Manual) Eosinophils # (Manual) INR D-Dimer ABG pH POC ABG pCO2 POC ABG pO2 ABG pO2 ABG HCO3 ABG O2 Saturation ABG Base Excess ABG Hemoglobin ABG Oxyhemoglobin ABG Sodium ABG Potassium ABG Chloride ABG Glucose Oxyhemoglobin Carboxyhemoglobin Sodium Potassium Chloride Carbon Dioxide BUN Creatinine Glucose POC Glucose 157 H Hemoglobin A1c Lactic Acid Calcium Phosphorus 5.60 H D Magnesium Ferritin Total Bilirubin AST ALT Lactate Dehydrogenase C-Reactive Protein Albumin Triglycerides Arterial Blood Glucose Arterial Blood Ionized Calcium Urine Creatinine Coronavirus (PCR) Crossmatch 02/05/21 02/05/21 02/05/21 03:44 05:27 09:15 WBC RBC Hgb Hct MCV MCH MCHC RDW Plt Count Lymph % (Auto) Lymph # (Auto) Seg Neutrophils % Seg Neuts % (Manual) Lymphocytes % (Manual) Monocytes % (Manual) Nucleated RBC % Seg Neutrophils # Seg Neutrophils # Man Lymphocytes # (Manual) Monocytes # (Manual) Eosinophils # (Manual) INR D-Dimer ABG pH 7.202 L POC ABG pCO2 63.7 H POC ABG pO2 69.0 L ABG pO2 ABG HCO3 ABG O2 Saturation ABG Base Excess ABG Hemoglobin 9.4 L ABG Oxyhemoglobin ABG Sodium ABG Potassium ABG Chloride 108.0 H ABG Glucose 186 H Oxyhemoglobin Carboxyhemoglobin Sodium Potassium Chloride Carbon Dioxide BUN 78 H Creatinine 8.0 H Glucose 163 H POC Glucose 157 H Hemoglobin A1c Lactic Acid Calcium 6.3 L Phosphorus Magnesium Ferritin Total Bilirubin AST ALT Lactate Dehydrogenase C-Reactive Protein Albumin Triglycerides Arterial Blood Glucose 186 H Arterial Blood Ionized Calcium 3.9 L Urine Creatinine Coronavirus (PCR) Crossmatch 02/05/21 02/05/21 02/05/21 11:47 17:39 23:40 WBC RBC Hgb Hct MCV MCH MCHC RDW Plt Count Lymph % (Auto) Lymph # (Auto) Seg Neutrophils % Seg Neuts % (Manual) Lymphocytes % (Manual) Monocytes % (Manual) Nucleated RBC % Seg Neutrophils # Seg Neutrophils # Man Lymphocytes # (Manual) Monocytes # (Manual) Eosinophils # (Manual) INR D-Dimer ABG pH 7.273 L POC ABG pCO2 62.1 H POC ABG pO2 72.0 L ABG pO2 ABG HCO3 ABG O2 Saturation ABG Base Excess ABG Hemoglobin 9.1 L ABG Oxyhemoglobin 91.3 L ABG Sodium ABG Potassium 3.1 L ABG Chloride ABG Glucose 125 H Oxyhemoglobin Carboxyhemoglobin Sodium Potassium Chloride Carbon Dioxide BUN Creatinine Glucose POC Glucose 126 H 126 H Hemoglobin A1c Lactic Acid Calcium Phosphorus Magnesium Ferritin Total Bilirubin AST ALT Lactate Dehydrogenase C-Reactive Protein Albumin Triglycerides Arterial Blood Glucose 125 H Arterial Blood Ionized Calcium 4.0 L Urine Creatinine Coronavirus (PCR) Crossmatch 02/06/21 02/06/21 02/06/21 04:30 04:57 09:45 WBC RBC Hgb Hct MCV MCH MCHC RDW Plt Count Lymph % (Auto) Lymph # (Auto) Seg Neutrophils % Seg Neuts % (Manual) Lymphocytes % (Manual) Monocytes % (Manual) Nucleated RBC % Seg Neutrophils # Seg Neutrophils # Man Lymphocytes # (Manual) Monocytes # (Manual) Eosinophils # (Manual) INR D-Dimer ABG pH 7.159 L 7.138 L* POC ABG pCO2 76.3 H POC ABG pO2 66.9 L ABG pO2 ABG HCO3 ABG O2 Saturation 93.4 L ABG Base Excess -6.0 L ABG Hemoglobin 11.2 L 11.7 L ABG Oxyhemoglobin 88.2 L ABG Sodium ABG Potassium ABG Chloride ABG Glucose 134 H Oxyhemoglobin 91.2 L Carboxyhemoglobin Sodium Potassium Chloride Carbon Dioxide BUN Creatinine Glucose POC Glucose 124 H Hemoglobin A1c Lactic Acid Calcium Phosphorus Magnesium Ferritin Total Bilirubin AST ALT Lactate Dehydrogenase C-Reactive Protein Albumin Triglycerides Arterial Blood Glucose 134 H Arterial Blood Ionized Calcium 3.9 L Urine Creatinine Coronavirus (PCR) Crossmatch 02/06/21 02/06/21 02/06/21 11:11 17:00 17:00 WBC RBC Hgb Hct MCV MCH MCHC RDW Plt Count Lymph % (Auto) Lymph # (Auto) Seg Neutrophils % Seg Neuts % (Manual) Lymphocytes % (Manual) Monocytes % (Manual) Nucleated RBC % Seg Neutrophils # Seg Neutrophils # Man Lymphocytes # (Manual) Monocytes # (Manual) Eosinophils # (Manual) INR D-Dimer ABG pH 7.158 L* POC ABG pCO2 POC ABG pO2 ABG pO2 109.8 H ABG HCO3 28.7 H ABG O2 Saturation ABG Base Excess -2.5 L ABG Hemoglobin ABG Oxyhemoglobin ABG Sodium ABG Potassium ABG Chloride ABG Glucose Oxyhemoglobin 94.5 L Carboxyhemoglobin Sodium Potassium Chloride Carbon Dioxide BUN Creatinine Glucose POC Glucose 120 H Hemoglobin A1c Lactic Acid Calcium Phosphorus Magnesium Ferritin Total Bilirubin AST ALT Lactate Dehydrogenase C-Reactive Protein Albumin Triglycerides 503 H Arterial Blood Glucose Arterial Blood Ionized Calcium Urine Creatinine Coronavirus (PCR) Crossmatch 02/06/21 02/06/21 02/06/21 17:28 20:16 Unknown WBC 13.5 H RBC 2.98 L Hgb 9.3 L Hct 28.6 L MCV 96 H MCH MCHC RDW Plt Count Lymph % (Auto) Lymph # (Auto) Seg Neutrophils % Seg Neuts % (Manual) 87.0 H Lymphocytes % (Manual) 7.0 L Monocytes % (Manual) Nucleated RBC % Seg Neutrophils # Seg Neutrophils # Man 11.7 H Lymphocytes # (Manual) 0.9 L Monocytes # (Manual) Eosinophils # (Manual) 0.5 H INR D-Dimer ABG pH POC ABG pCO2 POC ABG pO2 ABG pO2 ABG HCO3 ABG O2 Saturation ABG Base Excess ABG Hemoglobin ABG Oxyhemoglobin ABG Sodium ABG Potassium ABG Chloride ABG Glucose Oxyhemoglobin Carboxyhemoglobin Sodium Potassium Chloride Carbon Dioxide BUN Creatinine Glucose POC Glucose 147 H 164 H Hemoglobin A1c Lactic Acid Calcium Phosphorus Magnesium Ferritin Total Bilirubin AST ALT Lactate Dehydrogenase C-Reactive Protein Albumin Triglycerides Arterial Blood Glucose Arterial Blood Ionized Calcium Urine Creatinine Coronavirus (PCR) Crossmatch 02/06/21 02/07/21 02/07/21 Unknown 01:21 04:00 WBC 12.0 H RBC 2.61 L Hgb 8.2 L Hct 24.5 L MCV MCH MCHC RDW Plt Count Lymph % (Auto) 8.9 L Lymph # (Auto) 1.1 L Seg Neutrophils % 86.3 H Seg Neuts % (Manual) Lymphocytes % (Manual) Monocytes % (Manual) Nucleated RBC % Seg Neutrophils # 10.3 H Seg Neutrophils # Man Lymphocytes # (Manual) Monocytes # (Manual) Eosinophils # (Manual) INR D-Dimer ABG pH POC ABG pCO2 POC ABG pO2 ABG pO2 ABG HCO3 ABG O2 Saturation ABG Base Excess ABG Hemoglobin ABG Oxyhemoglobin ABG Sodium ABG Potassium ABG Chloride ABG Glucose Oxyhemoglobin Carboxyhemoglobin Sodium Potassium 3.5 L Chloride Carbon Dioxide BUN 58 H Creatinine 6.6 H Glucose 107 H POC Glucose 173 H Hemoglobin A1c Lactic Acid Calcium 6.7 L Phosphorus 8.00 H D Magnesium Ferritin Total Bilirubin AST ALT Lactate Dehydrogenase C-Reactive Protein Albumin Triglycerides Arterial Blood Glucose Arterial Blood Ionized Calcium Urine Creatinine Coronavirus (PCR) Crossmatch 02/07/21 02/07/21 02/07/21 04:00 04:45 11:49 WBC RBC Hgb Hct MCV MCH MCHC RDW Plt Count Lymph % (Auto) Lymph # (Auto) Seg Neutrophils % Seg Neuts % (Manual) Lymphocytes % (Manual) Monocytes % (Manual) Nucleated RBC % Seg Neutrophils # Seg Neutrophils # Man Lymphocytes # (Manual) Monocytes # (Manual) Eosinophils # (Manual) INR D-Dimer ABG pH 7.287 L POC ABG pCO2 64.8 H POC ABG pO2 74.0 L ABG pO2 ABG HCO3 ABG O2 Saturation ABG Base Excess ABG Hemoglobin 9.1 L ABG Oxyhemoglobin 92.0 L ABG Sodium ABG Potassium 2.8 L ABG Chloride ABG Glucose 226 H Oxyhemoglobin Carboxyhemoglobin Sodium Potassium Chloride Carbon Dioxide BUN Creatinine Glucose POC Glucose 170 H Hemoglobin A1c Lactic Acid Calcium Phosphorus 5.50 H D Magnesium Ferritin Total Bilirubin AST ALT Lactate Dehydrogenase C-Reactive Protein Albumin Triglycerides Arterial Blood Glucose 226 H Arterial Blood Ionized Calcium 3.7 L Urine Creatinine Coronavirus (PCR) Crossmatch 02/07/21 02/07/21 02/07/21 13:48 17:45 23:02 WBC RBC Hgb Hct MCV MCH MCHC RDW Plt Count Lymph % (Auto) Lymph # (Auto) Seg Neutrophils % Seg Neuts % (Manual) Lymphocytes % (Manual) Monocytes % (Manual) Nucleated RBC % Seg Neutrophils # Seg Neutrophils # Man Lymphocytes # (Manual) Monocytes # (Manual) Eosinophils # (Manual) INR D-Dimer ABG pH POC ABG pCO2 POC ABG pO2 ABG pO2 ABG HCO3 ABG O2 Saturation ABG Base Excess ABG Hemoglobin ABG Oxyhemoglobin ABG Sodium ABG Potassium ABG Chloride ABG Glucose Oxyhemoglobin Carboxyhemoglobin Sodium 136 L Potassium 2.6 L* D Chloride 95.1 L Carbon Dioxide 33 H D BUN 30 H Creatinine 3.6 H Glucose 184 H POC Glucose 172 H 172 H Hemoglobin A1c Lactic Acid Calcium 6.9 L Phosphorus Magnesium Ferritin Total Bilirubin AST ALT Lactate Dehydrogenase C-Reactive Protein Albumin Triglycerides Arterial Blood Glucose Arterial Blood Ionized Calcium Urine Creatinine Coronavirus (PCR) Crossmatch 02/08/21 02/08/21 02/08/21 05:22 06:00 06:00 WBC RBC 2.21 L Hgb 7.2 L Hct 21.0 L MCV 95 H MCH MCHC RDW Plt Count Lymph % (Auto) Lymph # (Auto) Seg Neutrophils % Seg Neuts % (Manual) 87.0 H Lymphocytes % (Manual) 4.0 L Monocytes % (Manual) Nucleated RBC % Seg Neutrophils # Seg Neutrophils # Man 8.5 H Lymphocytes # (Manual) 0.4 L Monocytes # (Manual) Eosinophils # (Manual) INR D-Dimer ABG pH POC ABG pCO2 POC ABG pO2 ABG pO2 ABG HCO3 ABG O2 Saturation ABG Base Excess ABG Hemoglobin ABG Oxyhemoglobin ABG Sodium ABG Potassium ABG Chloride ABG Glucose Oxyhemoglobin Carboxyhemoglobin Sodium 136 L Potassium 2.4 L* Chloride 93.1 L Carbon Dioxide 36 H BUN 43 H Creatinine 5.4 H Glucose 167 H POC Glucose 162 H Hemoglobin A1c Lactic Acid Calcium 6.3 L Phosphorus Magnesium Ferritin Total Bilirubin AST ALT Lactate Dehydrogenase C-Reactive Protein Albumin Triglycerides Arterial Blood Glucose Arterial Blood Ionized Calcium Urine Creatinine Coronavirus (PCR) Crossmatch 02/08/21 02/08/21 02/08/21 11:44 17:53 18:56 WBC RBC Hgb Hct MCV MCH MCHC RDW Plt Count Lymph % (Auto) Lymph # (Auto) Seg Neutrophils % Seg Neuts % (Manual) Lymphocytes % (Manual) Monocytes % (Manual) Nucleated RBC % Seg Neutrophils # Seg Neutrophils # Man Lymphocytes # (Manual) Monocytes # (Manual) Eosinophils # (Manual) INR D-Dimer ABG pH POC ABG pCO2 POC ABG pO2 ABG pO2 ABG HCO3 ABG O2 Saturation ABG Base Excess ABG Hemoglobin ABG Oxyhemoglobin ABG Sodium ABG Potassium ABG Chloride ABG Glucose Oxyhemoglobin Carboxyhemoglobin Sodium Potassium 2.9 L* D Chloride Carbon Dioxide BUN Creatinine Glucose POC Glucose 164 H 154 H Hemoglobin A1c Lactic Acid Calcium Phosphorus Magnesium Ferritin Total Bilirubin AST ALT Lactate Dehydrogenase C-Reactive Protein Albumin Triglycerides Arterial Blood Glucose Arterial Blood Ionized Calcium Urine Creatinine Coronavirus (PCR) Crossmatch 02/08/21 02/08/21 02/09/21 23:24 23:58 03:21 WBC RBC Hgb Hct MCV MCH MCHC RDW Plt Count Lymph % (Auto) Lymph # (Auto) Seg Neutrophils % Seg Neuts % (Manual) Lymphocytes % (Manual) Monocytes % (Manual) Nucleated RBC % Seg Neutrophils # Seg Neutrophils # Man Lymphocytes # (Manual) Monocytes # (Manual) Eosinophils # (Manual) INR D-Dimer ABG pH 7.319 L POC ABG pCO2 63.3 H 68.3 H POC ABG pO2 71.2 L 76.5 L ABG pO2 ABG HCO3 ABG O2 Saturation ABG Base Excess ABG Hemoglobin 8.2 L 7.0 L ABG Oxyhemoglobin 91.8 L 92.2 L ABG Sodium 134.6 L 133.0 L ABG Potassium 2.3 L 3.1 L ABG Chloride 96.0 L 95.0 L ABG Glucose 184 H 154 H Oxyhemoglobin Carboxyhemoglobin Sodium Potassium Chloride Carbon Dioxide BUN Creatinine Glucose POC Glucose 152 H Hemoglobin A1c Lactic Acid Calcium Phosphorus Magnesium Ferritin Total Bilirubin AST ALT Lactate Dehydrogenase C-Reactive Protein Albumin Triglycerides Arterial Blood Glucose 184 H 154 H Arterial Blood Ionized Calcium 3.6 L 3.5 L Urine Creatinine Coronavirus (PCR) Crossmatch 02/09/21 02/09/21 02/09/21 05:10 05:10 06:04 WBC RBC 2.14 L Hgb 7.0 L Hct 20.5 L MCV 96 H MCH 33 H MCHC RDW Plt Count Lymph % (Auto) Lymph # (Auto) Seg Neutrophils % Seg Neuts % (Manual) 82.0 H Lymphocytes % (Manual) 9.0 L Monocytes % (Manual) Nucleated RBC % 1.0 H Seg Neutrophils # Seg Neutrophils # Man 8.9 H Lymphocytes # (Manual) 1.0 L Monocytes # (Manual) Eosinophils # (Manual) INR D-Dimer ABG pH POC ABG pCO2 POC ABG pO2 ABG pO2 ABG HCO3 ABG O2 Saturation ABG Base Excess ABG Hemoglobin ABG Oxyhemoglobin ABG Sodium ABG Potassium ABG Chloride ABG Glucose Oxyhemoglobin Carboxyhemoglobin Sodium 135 L Potassium 3.2 L Chloride 91.0 L Carbon Dioxide 32 H BUN 54 H Creatinine 6.6 H Glucose 163 H POC Glucose 149 H Hemoglobin A1c Lactic Acid Calcium 6.2 L Phosphorus Magnesium Ferritin Total Bilirubin AST ALT Lactate Dehydrogenase C-Reactive Protein Albumin Triglycerides Arterial Blood Glucose Arterial Blood Ionized Calcium Urine Creatinine Coronavirus (PCR) Crossmatch 02/09/21 02/09/21 02/09/21 12:02 13:32 13:40 WBC RBC Hgb Hct MCV MCH MCHC RDW Plt Count Lymph % (Auto) Lymph # (Auto) Seg Neutrophils % Seg Neuts % (Manual) Lymphocytes % (Manual) Monocytes % (Manual) Nucleated RBC % Seg Neutrophils # Seg Neutrophils # Man Lymphocytes # (Manual) Monocytes # (Manual) Eosinophils # (Manual) INR D-Dimer ABG pH POC ABG pCO2 POC ABG pO2 ABG pO2 ABG HCO3 ABG O2 Saturation ABG Base Excess ABG Hemoglobin ABG Oxyhemoglobin ABG Sodium ABG Potassium ABG Chloride ABG Glucose Oxyhemoglobin Carboxyhemoglobin Sodium Potassium Chloride Carbon Dioxide BUN Creatinine Glucose POC Glucose 147 H Hemoglobin A1c Lactic Acid Calcium Phosphorus Magnesium Ferritin Total Bilirubin AST ALT Lactate Dehydrogenase C-Reactive Protein Albumin Triglycerides 250 H Arterial Blood Glucose Arterial Blood Ionized Calcium Urine Creatinine Coronavirus (PCR) Crossmatch See Detail 02/09/21 02/09/21 02/10/21 18:06 23:42 04:00 WBC RBC Hgb Hct MCV MCH MCHC RDW Plt Count Lymph % (Auto) Lymph # (Auto) Seg Neutrophils % Seg Neuts % (Manual) Lymphocytes % (Manual) Monocytes % (Manual) Nucleated RBC % Seg Neutrophils # Seg Neutrophils # Man Lymphocytes # (Manual) Monocytes # (Manual) Eosinophils # (Manual) INR D-Dimer ABG pH POC ABG pCO2 65.8 H POC ABG pO2 68.0 L ABG pO2 ABG HCO3 ABG O2 Saturation ABG Base Excess ABG Hemoglobin 8.3 L ABG Oxyhemoglobin ABG Sodium 132.4 L ABG Potassium 2.9 L ABG Chloride 92.0 L ABG Glucose 174 H Oxyhemoglobin Carboxyhemoglobin Sodium Potassium Chloride Carbon Dioxide BUN Creatinine Glucose POC Glucose 152 H 147 H Hemoglobin A1c Lactic Acid Calcium Phosphorus Magnesium Ferritin Total Bilirubin AST ALT Lactate Dehydrogenase C-Reactive Protein Albumin Triglycerides Arterial Blood Glucose 174 H Arterial Blood Ionized Calcium 3.4 L Urine Creatinine Coronavirus (PCR) Crossmatch 02/10/21 02/10/21 02/10/21 05:32 11:29 14:08 WBC 12.5 H RBC 2.14 L Hgb 6.6 L Hct 20.2 L MCV MCH MCHC RDW Plt Count Lymph % (Auto) Lymph # (Auto) Seg Neutrophils % Seg Neuts % (Manual) Lymphocytes % (Manual) Monocytes % (Manual) Nucleated RBC % Seg Neutrophils # Seg Neutrophils # Man Lymphocytes # (Manual) Monocytes # (Manual) Eosinophils # (Manual) INR D-Dimer ABG pH POC ABG pCO2 POC ABG pO2 ABG pO2 ABG HCO3 ABG O2 Saturation ABG Base Excess ABG Hemoglobin ABG Oxyhemoglobin ABG Sodium ABG Potassium ABG Chloride ABG Glucose Oxyhemoglobin Carboxyhemoglobin Sodium Potassium Chloride Carbon Dioxide BUN Creatinine Glucose POC Glucose 167 H 147 H Hemoglobin A1c Lactic Acid Calcium Phosphorus Magnesium Ferritin Total Bilirubin AST ALT Lactate Dehydrogenase C-Reactive Protein Albumin Triglycerides Arterial Blood Glucose Arterial Blood Ionized Calcium Urine Creatinine Coronavirus (PCR) Crossmatch 02/10/21 02/10/21 02/10/21 14:08 18:11 22:32 WBC RBC Hgb 6.4 L Hct 19.1 L* MCV MCH MCHC RDW Plt Count Lymph % (Auto) Lymph # (Auto) Seg Neutrophils % Seg Neuts % (Manual) Lymphocytes % (Manual) Monocytes % (Manual) Nucleated RBC % Seg Neutrophils # Seg Neutrophils # Man Lymphocytes # (Manual) Monocytes # (Manual) Eosinophils # (Manual) INR D-Dimer ABG pH POC ABG pCO2 POC ABG pO2 ABG pO2 ABG HCO3 ABG O2 Saturation ABG Base Excess ABG Hemoglobin ABG Oxyhemoglobin ABG Sodium ABG Potassium ABG Chloride ABG Glucose Oxyhemoglobin Carboxyhemoglobin Sodium 136 L Potassium 2.9 L* Chloride 90.2 L Carbon Dioxide 33 H BUN 42 H Creatinine 7.5 H Glucose 155 H POC Glucose 173 H Hemoglobin A1c Lactic Acid Calcium 6.1 L Phosphorus Magnesium Ferritin Total Bilirubin AST ALT Lactate Dehydrogenase C-Reactive Protein Albumin Triglycerides Arterial Blood Glucose Arterial Blood Ionized Calcium Urine Creatinine Coronavirus (PCR) Crossmatch 02/11/21 02/11/21 02/11/21 00:28 04:05 04:30 WBC RBC Hgb Hct MCV MCH MCHC RDW Plt Count Lymph % (Auto) Lymph # (Auto) Seg Neutrophils % Seg Neuts % (Manual) Lymphocytes % (Manual) Monocytes % (Manual) Nucleated RBC % Seg Neutrophils # Seg Neutrophils # Man Lymphocytes # (Manual) Monocytes # (Manual) Eosinophils # (Manual) INR D-Dimer ABG pH 7.307 L POC ABG pCO2 72.2 H POC ABG pO2 72.3 L ABG pO2 ABG HCO3 ABG O2 Saturation ABG Base Excess ABG Hemoglobin 8.2 L ABG Oxyhemoglobin ABG Sodium 132.3 L ABG Potassium 3.2 L ABG Chloride 91.0 L ABG Glucose 197 H Oxyhemoglobin Carboxyhemoglobin Sodium 135 L Potassium 3.3 L Chloride 87.1 L Carbon Dioxide 36 H BUN 71 H Creatinine 7.9 H Glucose 263 H POC Glucose 192 H Hemoglobin A1c Lactic Acid Calcium 6.2 L Phosphorus Magnesium Ferritin Total Bilirubin AST ALT Lactate Dehydrogenase C-Reactive Protein Albumin Triglycerides Arterial Blood Glucose 197 H Arterial Blood Ionized Calcium 3.3 L Urine Creatinine Coronavirus (PCR) Crossmatch 02/11/21 02/11/21 02/11/21 04:30 05:47 08:27 WBC RBC 2.22 L Hgb 7.2 L Hct 21.0 L MCV MCH MCHC RDW Plt Count Lymph % (Auto) 8.7 L Lymph # (Auto) 0.9 L Seg Neutrophils % 85.5 H Seg Neuts % (Manual) Lymphocytes % (Manual) Monocytes % (Manual) Nucleated RBC % Seg Neutrophils # 9.2 H Seg Neutrophils # Man Lymphocytes # (Manual) Monocytes # (Manual) Eosinophils # (Manual) INR 1.17 H D-Dimer 1930.92 H ABG pH POC ABG pCO2 POC ABG pO2 ABG pO2 ABG HCO3 ABG O2 Saturation ABG Base Excess ABG Hemoglobin ABG Oxyhemoglobin ABG Sodium ABG Potassium ABG Chloride ABG Glucose Oxyhemoglobin Carboxyhemoglobin Sodium Potassium Chloride Carbon Dioxide BUN Creatinine Glucose POC Glucose 189 H Hemoglobin A1c Lactic Acid Calcium Phosphorus Magnesium Ferritin Total Bilirubin AST ALT Lactate Dehydrogenase C-Reactive Protein Albumin Triglycerides Arterial Blood Glucose Arterial Blood Ionized Calcium Urine Creatinine Coronavirus (PCR) Crossmatch 02/11/21 02/11/21 02/11/21 09:00 09:00 13:18 WBC RBC Hgb Hct MCV MCH MCHC RDW Plt Count Lymph % (Auto) Lymph # (Auto) Seg Neutrophils % Seg Neuts % (Manual) Lymphocytes % (Manual) Monocytes % (Manual) Nucleated RBC % Seg Neutrophils # Seg Neutrophils # Man Lymphocytes # (Manual) Monocytes # (Manual) Eosinophils # (Manual) INR D-Dimer ABG pH POC ABG pCO2 POC ABG pO2 ABG pO2 ABG HCO3 ABG O2 Saturation ABG Base Excess ABG Hemoglobin ABG Oxyhemoglobin ABG Sodium ABG Potassium ABG Chloride ABG Glucose Oxyhemoglobin Carboxyhemoglobin Sodium Potassium Chloride Carbon Dioxide BUN Creatinine Glucose 126 H POC Glucose 160 H Hemoglobin A1c Lactic Acid Calcium Phosphorus Magnesium Ferritin 1253.0 H Total Bilirubin AST ALT Lactate Dehydrogenase 649 H C-Reactive Protein 12.60 H Albumin Triglycerides Arterial Blood Glucose Arterial Blood Ionized Calcium Urine Creatinine Coronavirus (PCR) Crossmatch 02/11/21 02/11/21 02/11/21 14:30 16:59 22:34 WBC RBC Hgb 7.1 L 6.7 L Hct 20.5 L 19.9 L* MCV MCH MCHC RDW Plt Count Lymph % (Auto) Lymph # (Auto) Seg Neutrophils % Seg Neuts % (Manual) Lymphocytes % (Manual) Monocytes % (Manual) Nucleated RBC % Seg Neutrophils # Seg Neutrophils # Man Lymphocytes # (Manual) Monocytes # (Manual) Eosinophils # (Manual) INR D-Dimer ABG pH POC ABG pCO2 POC ABG pO2 ABG pO2 ABG HCO3 ABG O2 Saturation ABG Base Excess ABG Hemoglobin ABG Oxyhemoglobin ABG Sodium ABG Potassium ABG Chloride ABG Glucose Oxyhemoglobin Carboxyhemoglobin Sodium Potassium Chloride Carbon Dioxide BUN Creatinine Glucose POC Glucose 151 H Hemoglobin A1c Lactic Acid Calcium Phosphorus Magnesium Ferritin Total Bilirubin AST ALT Lactate Dehydrogenase C-Reactive Protein Albumin Triglycerides Arterial Blood Glucose Arterial Blood Ionized Calcium Urine Creatinine Coronavirus (PCR) Crossmatch 02/11/21 02/12/21 02/12/21 23:42 04:41 05:19 WBC RBC Hgb Hct MCV MCH MCHC RDW Plt Count Lymph % (Auto) Lymph # (Auto) Seg Neutrophils % Seg Neuts % (Manual) Lymphocytes % (Manual) Monocytes % (Manual) Nucleated RBC % Seg Neutrophils # Seg Neutrophils # Man Lymphocytes # (Manual) Monocytes # (Manual) Eosinophils # (Manual) INR D-Dimer ABG pH POC ABG pCO2 POC ABG pO2 ABG pO2 69.0 L ABG HCO3 32.5 H ABG O2 Saturation ABG Base Excess 7.7 H ABG Hemoglobin 5.1 L ABG Oxyhemoglobin ABG Sodium ABG Potassium ABG Chloride ABG Glucose Oxyhemoglobin 94.7 L Carboxyhemoglobin Sodium Potassium Chloride Carbon Dioxide BUN Creatinine Glucose POC Glucose 165 H 153 H Hemoglobin A1c Lactic Acid Calcium Phosphorus Magnesium Ferritin Total Bilirubin AST ALT Lactate Dehydrogenase C-Reactive Protein Albumin Triglycerides Arterial Blood Glucose Arterial Blood Ionized Calcium Urine Creatinine Coronavirus (PCR) Crossmatch 02/12/21 02/12/21 02/12/21 06:35 06:35 08:40 WBC RBC 2.21 L Hgb 7.2 L Hct 20.7 L MCV MCH 33 H MCHC 35 H RDW Plt Count Lymph % (Auto) Lymph # (Auto) Seg Neutrophils % Seg Neuts % (Manual) Lymphocytes % (Manual) Monocytes % (Manual) Nucleated RBC % Seg Neutrophils # Seg Neutrophils # Man Lymphocytes # (Manual) Monocytes # (Manual) Eosinophils # (Manual) INR D-Dimer ABG pH POC ABG pCO2 POC ABG pO2 ABG pO2 ABG HCO3 ABG O2 Saturation ABG Base Excess ABG Hemoglobin ABG Oxyhemoglobin ABG Sodium ABG Potassium ABG Chloride ABG Glucose Oxyhemoglobin Carboxyhemoglobin Sodium 135 L Potassium 3.4 L Chloride 91.8 L Carbon Dioxide 36 H BUN 57 H Creatinine 6.8 H Glucose 163 H POC Glucose Hemoglobin A1c Lactic Acid Calcium 7.0 L Phosphorus Magnesium 1.60 L Ferritin Total Bilirubin AST ALT Lactate Dehydrogenase C-Reactive Protein Albumin Triglycerides Arterial Blood Glucose Arterial Blood Ionized Calcium Urine Creatinine Coronavirus (PCR) Crossmatch 02/12/21 02/12/21 02/12/21 10:45 12:04 17:19 WBC RBC Hgb Hct MCV MCH MCHC RDW Plt Count Lymph % (Auto) Lymph # (Auto) Seg Neutrophils % Seg Neuts % (Manual) Lymphocytes % (Manual) Monocytes % (Manual) Nucleated RBC % Seg Neutrophils # Seg Neutrophils # Man Lymphocytes # (Manual) Monocytes # (Manual) Eosinophils # (Manual) INR D-Dimer ABG pH POC ABG pCO2 POC ABG pO2 ABG pO2 ABG HCO3 ABG O2 Saturation ABG Base Excess ABG Hemoglobin ABG Oxyhemoglobin ABG Sodium ABG Potassium ABG Chloride ABG Glucose Oxyhemoglobin Carboxyhemoglobin Sodium Potassium Chloride Carbon Dioxide BUN Creatinine Glucose POC Glucose 165 H 165 H Hemoglobin A1c Lactic Acid Calcium Phosphorus Magnesium Ferritin Total Bilirubin AST ALT Lactate Dehydrogenase C-Reactive Protein Albumin Triglycerides 182 H Arterial Blood Glucose Arterial Blood Ionized Calcium Urine Creatinine Coronavirus (PCR) Crossmatch 02/12/21 02/13/21 02/13/21 23:18 05:00 05:36 WBC RBC Hgb Hct MCV MCH MCHC RDW Plt Count Lymph % (Auto) Lymph # (Auto) Seg Neutrophils % Seg Neuts % (Manual) Lymphocytes % (Manual) Monocytes % (Manual) Nucleated RBC % Seg Neutrophils # Seg Neutrophils # Man Lymphocytes # (Manual) Monocytes # (Manual) Eosinophils # (Manual) INR D-Dimer ABG pH POC ABG pCO2 60.8 H POC ABG pO2 76.4 L ABG pO2 ABG HCO3 ABG O2 Saturation ABG Base Excess ABG Hemoglobin 7.4 L ABG Oxyhemoglobin ABG Sodium 133.2 L ABG Potassium 3.3 L ABG Chloride 96.0 L ABG Glucose 168 H Oxyhemoglobin Carboxyhemoglobin Sodium Potassium Chloride Carbon Dioxide BUN Creatinine Glucose POC Glucose 163 H 151 H Hemoglobin A1c Lactic Acid Calcium Phosphorus Magnesium Ferritin Total Bilirubin AST ALT Lactate Dehydrogenase C-Reactive Protein Albumin Triglycerides Arterial Blood Glucose 168 H Arterial Blood Ionized Calcium 4.3 L Urine Creatinine Coronavirus (PCR) Crossmatch 02/13/21 02/13/21 02/13/21 06:40 06:40 06:40 WBC RBC 2.19 L Hgb 7.0 L Hct 20.8 L MCV 95 H MCH MCHC RDW Plt Count Lymph % (Auto) Lymph # (Auto) Seg Neutrophils % Seg Neuts % (Manual) Lymphocytes % (Manual) Monocytes % (Manual) Nucleated RBC % Seg Neutrophils # Seg Neutrophils # Man Lymphocytes # (Manual) Monocytes # (Manual) Eosinophils # (Manual) INR D-Dimer ABG pH POC ABG pCO2 POC ABG pO2 ABG pO2 ABG HCO3 ABG O2 Saturation ABG Base Excess ABG Hemoglobin ABG Oxyhemoglobin ABG Sodium ABG Potassium ABG Chloride ABG Glucose Oxyhemoglobin Carboxyhemoglobin Sodium 135 L Potassium 3.4 L Chloride 93.0 L Carbon Dioxide 32 H BUN 46 H Creatinine 5.8 H Glucose 148 H POC Glucose Hemoglobin A1c Lactic Acid Calcium 7.9 L Phosphorus Magnesium Ferritin Total Bilirubin AST ALT Lactate Dehydrogenase C-Reactive Protein 16.80 H Albumin Triglycerides Arterial Blood Glucose Arterial Blood Ionized Calcium Urine Creatinine Coronavirus (PCR) Crossmatch 02/13/21 02/13/21 02/13/21 06:40 07:38 07:38 WBC RBC Hgb Hct MCV MCH MCHC RDW Plt Count Lymph % (Auto) Lymph # (Auto) Seg Neutrophils % Seg Neuts % (Manual) Lymphocytes % (Manual) Monocytes % (Manual) Nucleated RBC % Seg Neutrophils # Seg Neutrophils # Man Lymphocytes # (Manual) Monocytes # (Manual) Eosinophils # (Manual) INR D-Dimer 1722.16 H ABG pH POC ABG pCO2 POC ABG pO2 ABG pO2 ABG HCO3 ABG O2 Saturation ABG Base Excess ABG Hemoglobin ABG Oxyhemoglobin ABG Sodium ABG Potassium ABG Chloride ABG Glucose Oxyhemoglobin Carboxyhemoglobin Sodium Potassium Chloride Carbon Dioxide BUN Creatinine Glucose POC Glucose Hemoglobin A1c Lactic Acid Calcium Phosphorus Magnesium 1.60 L Ferritin 976.5 H Total Bilirubin AST ALT Lactate Dehydrogenase C-Reactive Protein Albumin Triglycerides Arterial Blood Glucose Arterial Blood Ionized Calcium Urine Creatinine Coronavirus (PCR) Crossmatch 02/13/21 02/13/21 02/13/21 12:24 16:57 23:32 WBC RBC Hgb Hct MCV MCH MCHC RDW Plt Count Lymph % (Auto) Lymph # (Auto) Seg Neutrophils % Seg Neuts % (Manual) Lymphocytes % (Manual) Monocytes % (Manual) Nucleated RBC % Seg Neutrophils # Seg Neutrophils # Man Lymphocytes # (Manual) Monocytes # (Manual) Eosinophils # (Manual) INR D-Dimer ABG pH POC ABG pCO2 POC ABG pO2 ABG pO2 ABG HCO3 ABG O2 Saturation ABG Base Excess ABG Hemoglobin ABG Oxyhemoglobin ABG Sodium ABG Potassium ABG Chloride ABG Glucose Oxyhemoglobin Carboxyhemoglobin Sodium Potassium Chloride Carbon Dioxide BUN Creatinine Glucose POC Glucose 141 H 156 H 161 H Hemoglobin A1c Lactic Acid Calcium Phosphorus Magnesium Ferritin Total Bilirubin AST ALT Lactate Dehydrogenase C-Reactive Protein Albumin Triglycerides Arterial Blood Glucose Arterial Blood Ionized Calcium Urine Creatinine Coronavirus (PCR) Crossmatch 02/14/21 02/14/21 02/14/21 04:00 05:41 11:00 WBC RBC 2.14 L Hgb 6.9 L Hct 20.7 L MCV 97 H MCH 33 H MCHC RDW Plt Count Lymph % (Auto) Lymph # (Auto) Seg Neutrophils % Seg Neuts % (Manual) Lymphocytes % (Manual) Monocytes % (Manual) Nucleated RBC % Seg Neutrophils # Seg Neutrophils # Man Lymphocytes # (Manual) Monocytes # (Manual) Eosinophils # (Manual) INR D-Dimer ABG pH POC ABG pCO2 POC ABG pO2 ABG pO2 ABG HCO3 ABG O2 Saturation ABG Base Excess ABG Hemoglobin ABG Oxyhemoglobin ABG Sodium ABG Potassium ABG Chloride ABG Glucose Oxyhemoglobin Carboxyhemoglobin Sodium Potassium Chloride Carbon Dioxide BUN Creatinine Glucose POC Glucose 143 H Hemoglobin A1c Lactic Acid Calcium Phosphorus Magnesium Ferritin Total Bilirubin AST ALT Lactate Dehydrogenase C-Reactive Protein Albumin Triglycerides Arterial Blood Glucose Arterial Blood Ionized Calcium Urine Creatinine Coronavirus (PCR) Crossmatch See Detail 02/14/21 02/14/21 02/14/21 11:51 18:08 23:41 WBC RBC Hgb Hct MCV MCH MCHC RDW Plt Count Lymph % (Auto) Lymph # (Auto) Seg Neutrophils % Seg Neuts % (Manual) Lymphocytes % (Manual) Monocytes % (Manual) Nucleated RBC % Seg Neutrophils # Seg Neutrophils # Man Lymphocytes # (Manual) Monocytes # (Manual) Eosinophils # (Manual) INR D-Dimer ABG pH POC ABG pCO2 POC ABG pO2 ABG pO2 ABG HCO3 ABG O2 Saturation ABG Base Excess ABG Hemoglobin ABG Oxyhemoglobin ABG Sodium ABG Potassium ABG Chloride ABG Glucose Oxyhemoglobin Carboxyhemoglobin Sodium Potassium Chloride Carbon Dioxide BUN Creatinine Glucose POC Glucose 113 H 123 H 120 H Hemoglobin A1c Lactic Acid Calcium Phosphorus Magnesium Ferritin Total Bilirubin AST ALT Lactate Dehydrogenase C-Reactive Protein Albumin Triglycerides Arterial Blood Glucose Arterial Blood Ionized Calcium Urine Creatinine Coronavirus (PCR) Crossmatch 02/14/21 02/15/21 02/15/21 Unknown 05:00 05:00 WBC RBC Hgb Hct MCV MCH MCHC RDW Plt Count Lymph % (Auto) Lymph # (Auto) Seg Neutrophils % Seg Neuts % (Manual) Lymphocytes % (Manual) Monocytes % (Manual) Nucleated RBC % Seg Neutrophils # Seg Neutrophils # Man Lymphocytes # (Manual) Monocytes # (Manual) Eosinophils # (Manual) INR D-Dimer ABG pH POC ABG pCO2 53.4 H POC ABG pO2 61.8 L ABG pO2 ABG HCO3 ABG O2 Saturation ABG Base Excess ABG Hemoglobin 7.7 L ABG Oxyhemoglobin 88.8 L ABG Sodium ABG Potassium ABG Chloride ABG Glucose 143 H Oxyhemoglobin Carboxyhemoglobin 1.6 H Sodium Potassium Chloride 96.9 L Carbon Dioxide 33 H 31 H BUN 40 H 38 H Creatinine 5.2 H 4.8 H Glucose 152 H 132 H POC Glucose Hemoglobin A1c Lactic Acid Calcium 7.9 L Phosphorus Magnesium Ferritin Total Bilirubin AST ALT Lactate Dehydrogenase C-Reactive Protein Albumin Triglycerides Arterial Blood Glucose 143 H Arterial Blood Ionized Calcium Urine Creatinine Coronavirus (PCR) Crossmatch 02/15/21 02/15/21 02/15/21 05:00 05:27 12:05 WBC RBC 2.30 L Hgb 7.1 L Hct 22.1 L MCV 96 H MCH MCHC RDW 15.7 H Plt Count Lymph % (Auto) 11.0 L Lymph # (Auto) 1.1 L Seg Neutrophils % 83.0 H Seg Neuts % (Manual) Lymphocytes % (Manual) Monocytes % (Manual) Nucleated RBC % Seg Neutrophils # 8.6 H Seg Neutrophils # Man Lymphocytes # (Manual) Monocytes # (Manual) Eosinophils # (Manual) INR D-Dimer ABG pH POC ABG pCO2 POC ABG pO2 ABG pO2 ABG HCO3 ABG O2 Saturation ABG Base Excess ABG Hemoglobin ABG Oxyhemoglobin ABG Sodium ABG Potassium ABG Chloride ABG Glucose Oxyhemoglobin Carboxyhemoglobin Sodium Potassium Chloride Carbon Dioxide BUN Creatinine Glucose POC Glucose 133 H 123 H Hemoglobin A1c Lactic Acid Calcium Phosphorus Magnesium Ferritin Total Bilirubin AST ALT Lactate Dehydrogenase C-Reactive Protein Albumin Triglycerides Arterial Blood Glucose Arterial Blood Ionized Calcium Urine Creatinine Coronavirus (PCR) Crossmatch 02/15/21 02/15/21 02/16/21 17:08 23:52 03:44 WBC RBC Hgb Hct MCV MCH MCHC RDW Plt Count Lymph % (Auto) Lymph # (Auto) Seg Neutrophils % Seg Neuts % (Manual) Lymphocytes % (Manual) Monocytes % (Manual) Nucleated RBC % Seg Neutrophils # Seg Neutrophils # Man Lymphocytes # (Manual) Monocytes # (Manual) Eosinophils # (Manual) INR D-Dimer ABG pH 7.307 L POC ABG pCO2 59.5 H POC ABG pO2 63.2 L ABG pO2 ABG HCO3 ABG O2 Saturation ABG Base Excess ABG Hemoglobin 9.3 L ABG Oxyhemoglobin ABG Sodium ABG Potassium ABG Chloride ABG Glucose 148 H Oxyhemoglobin Carboxyhemoglobin Sodium Potassium Chloride Carbon Dioxide BUN Creatinine Glucose POC Glucose 129 H 136 H Hemoglobin A1c Lactic Acid Calcium Phosphorus Magnesium Ferritin Total Bilirubin AST ALT Lactate Dehydrogenase C-Reactive Protein Albumin Triglycerides Arterial Blood Glucose 148 H Arterial Blood Ionized Calcium Urine Creatinine Coronavirus (PCR) Crossmatch 02/16/21 02/16/21 02/16/21 05:26 06:00 12:14 WBC RBC Hgb Hct MCV MCH MCHC RDW Plt Count Lymph % (Auto) Lymph # (Auto) Seg Neutrophils % Seg Neuts % (Manual) Lymphocytes % (Manual) Monocytes % (Manual) Nucleated RBC % Seg Neutrophils # Seg Neutrophils # Man Lymphocytes # (Manual) Monocytes # (Manual) Eosinophils # (Manual) INR D-Dimer ABG pH POC ABG pCO2 POC ABG pO2 ABG pO2 ABG HCO3 ABG O2 Saturation ABG Base Excess ABG Hemoglobin ABG Oxyhemoglobin ABG Sodium ABG Potassium ABG Chloride ABG Glucose Oxyhemoglobin Carboxyhemoglobin Sodium Potassium Chloride Carbon Dioxide BUN 52 H Creatinine 6.0 H Glucose 138 H POC Glucose 135 H 128 H Hemoglobin A1c Lactic Acid Calcium Phosphorus Magnesium Ferritin Total Bilirubin AST ALT Lactate Dehydrogenase C-Reactive Protein Albumin Triglycerides Arterial Blood Glucose Arterial Blood Ionized Calcium Urine Creatinine Coronavirus (PCR) Crossmatch 02/16/21 02/16/21 02/16/21 17:09 17:09 17:09 WBC RBC Hgb Hct MCV MCH MCHC RDW Plt Count Lymph % (Auto) Lymph # (Auto) Seg Neutrophils % Seg Neuts % (Manual) Lymphocytes % (Manual) Monocytes % (Manual) Nucleated RBC % Seg Neutrophils # Seg Neutrophils # Man Lymphocytes # (Manual) Monocytes # (Manual) Eosinophils # (Manual) INR D-Dimer 4256.08 H ABG pH POC ABG pCO2 POC ABG pO2 ABG pO2 ABG HCO3 ABG O2 Saturation ABG Base Excess ABG Hemoglobin ABG Oxyhemoglobin ABG Sodium ABG Potassium ABG Chloride ABG Glucose Oxyhemoglobin Carboxyhemoglobin Sodium Potassium Chloride Carbon Dioxide BUN Creatinine Glucose POC Glucose Hemoglobin A1c Lactic Acid Calcium Phosphorus Magnesium Ferritin 980.6 H Total Bilirubin AST ALT Lactate Dehydrogenase 441 H C-Reactive Protein 20.20 H Albumin Triglycerides Arterial Blood Glucose Arterial Blood Ionized Calcium Urine Creatinine Coronavirus (PCR) Crossmatch 02/16/21 02/16/21 02/16/21 17:25 23:16 Unknown WBC RBC 2.19 L Hgb 7.1 L Hct 21.3 L MCV 98 H MCH 33 H MCHC RDW 16.0 H Plt Count Lymph % (Auto) Lymph # (Auto) Seg Neutrophils % Seg Neuts % (Manual) 85.0 H Lymphocytes % (Manual) 6.0 L Monocytes % (Manual) Nucleated RBC % 4.0 H Seg Neutrophils # Seg Neutrophils # Man Lymphocytes # (Manual) 0.5 L Monocytes # (Manual) Eosinophils # (Manual) INR D-Dimer ABG pH POC ABG pCO2 POC ABG pO2 ABG pO2 ABG HCO3 ABG O2 Saturation ABG Base Excess ABG Hemoglobin ABG Oxyhemoglobin ABG Sodium ABG Potassium ABG Chloride ABG Glucose Oxyhemoglobin Carboxyhemoglobin Sodium Potassium Chloride Carbon Dioxide BUN Creatinine Glucose POC Glucose 146 H 150 H Hemoglobin A1c Lactic Acid Calcium Phosphorus Magnesium Ferritin Total Bilirubin AST ALT Lactate Dehydrogenase C-Reactive Protein Albumin Triglycerides Arterial Blood Glucose Arterial Blood Ionized Calcium Urine Creatinine Coronavirus (PCR) Crossmatch 02/17/21 02/17/21 02/17/21 04:00 04:14 04:14 WBC RBC Hgb Hct MCV MCH MCHC RDW Plt Count Lymph % (Auto) Lymph # (Auto) Seg Neutrophils % Seg Neuts % (Manual) Lymphocytes % (Manual) Monocytes % (Manual) Nucleated RBC % Seg Neutrophils # Seg Neutrophils # Man Lymphocytes # (Manual) Monocytes # (Manual) Eosinophils # (Manual) INR D-Dimer 3183.35 H ABG pH 7.293 L POC ABG pCO2 59.5 H POC ABG pO2 68.1 L ABG pO2 ABG HCO3 ABG O2 Saturation ABG Base Excess ABG Hemoglobin 7.7 L ABG Oxyhemoglobin ABG Sodium 133.4 L ABG Potassium ABG Chloride ABG Glucose 143 H Oxyhemoglobin Carboxyhemoglobin Sodium 136 L Potassium Chloride 97.3 L Carbon Dioxide BUN 49 H Creatinine 5.3 H Glucose 139 H POC Glucose Hemoglobin A1c Lactic Acid Calcium Phosphorus Magnesium Ferritin Total Bilirubin AST ALT Lactate Dehydrogenase C-Reactive Protein Albumin Triglycerides Arterial Blood Glucose 143 H Arterial Blood Ionized Calcium Urine Creatinine Coronavirus (PCR) Crossmatch 02/17/21 02/17/21 02/17/21 04:14 04:14 04:14 WBC RBC 2.14 L Hgb 6.9 L Hct 21.0 L MCV 98 H MCH MCHC RDW 15.8 H Plt Count Lymph % (Auto) Lymph # (Auto) Seg Neutrophils % Seg Neuts % (Manual) Lymphocytes % (Manual) Monocytes % (Manual) Nucleated RBC % Seg Neutrophils # Seg Neutrophils # Man Lymphocytes # (Manual) Monocytes # (Manual) Eosinophils # (Manual) INR D-Dimer ABG pH POC ABG pCO2 POC ABG pO2 ABG pO2 ABG HCO3 ABG O2 Saturation ABG Base Excess ABG Hemoglobin ABG Oxyhemoglobin ABG Sodium ABG Potassium ABG Chloride ABG Glucose Oxyhemoglobin Carboxyhemoglobin Sodium Potassium Chloride Carbon Dioxide BUN Creatinine Glucose POC Glucose Hemoglobin A1c Lactic Acid Calcium Phosphorus Magnesium Ferritin 894.0 H Total Bilirubin AST ALT Lactate Dehydrogenase 399 H C-Reactive Protein 22.10 H Albumin Triglycerides Arterial Blood Glucose Arterial Blood Ionized Calcium Urine Creatinine Coronavirus (PCR) Crossmatch 02/17/21 02/17/21 02/17/21 06:06 07:45 12:25 WBC RBC Hgb 7.6 L Hct 22.8 L MCV MCH MCHC RDW Plt Count Lymph % (Auto) Lymph # (Auto) Seg Neutrophils % Seg Neuts % (Manual) Lymphocytes % (Manual) Monocytes % (Manual) Nucleated RBC % Seg Neutrophils # Seg Neutrophils # Man Lymphocytes # (Manual) Monocytes # (Manual) Eosinophils # (Manual) INR D-Dimer ABG pH POC ABG pCO2 POC ABG pO2 ABG pO2 ABG HCO3 ABG O2 Saturation ABG Base Excess ABG Hemoglobin ABG Oxyhemoglobin ABG Sodium ABG Potassium ABG Chloride ABG Glucose Oxyhemoglobin Carboxyhemoglobin Sodium Potassium Chloride Carbon Dioxide BUN Creatinine Glucose POC Glucose 134 H Hemoglobin A1c Lactic Acid Calcium Phosphorus Magnesium Ferritin Total Bilirubin AST ALT Lactate Dehydrogenase C-Reactive Protein Albumin Triglycerides Arterial Blood Glucose Arterial Blood Ionized Calcium Urine Creatinine Coronavirus (PCR) Crossmatch See Detail 02/17/21 02/17/21 02/17/21 12:35 17:56 23:34 WBC RBC Hgb Hct MCV MCH MCHC RDW Plt Count Lymph % (Auto) Lymph # (Auto) Seg Neutrophils % Seg Neuts % (Manual) Lymphocytes % (Manual) Monocytes % (Manual) Nucleated RBC % Seg Neutrophils # Seg Neutrophils # Man Lymphocytes # (Manual) Monocytes # (Manual) Eosinophils # (Manual) INR D-Dimer ABG pH POC ABG pCO2 POC ABG pO2 ABG pO2 ABG HCO3 ABG O2 Saturation ABG Base Excess ABG Hemoglobin ABG Oxyhemoglobin ABG Sodium ABG Potassium ABG Chloride ABG Glucose Oxyhemoglobin Carboxyhemoglobin Sodium Potassium Chloride Carbon Dioxide BUN Creatinine Glucose POC Glucose 114 H 128 H 120 H Hemoglobin A1c Lactic Acid Calcium Phosphorus Magnesium Ferritin Total Bilirubin AST ALT Lactate Dehydrogenase C-Reactive Protein Albumin Triglycerides Arterial Blood Glucose Arterial Blood Ionized Calcium Urine Creatinine Coronavirus (PCR) Crossmatch 02/18/21 02/18/21 02/18/21 04:03 04:55 05:02 WBC RBC 2.40 L Hgb 7.5 L Hct 23.1 L MCV 96 H MCH MCHC RDW 16.8 H Plt Count Lymph % (Auto) Lymph # (Auto) Seg Neutrophils % Seg Neuts % (Manual) Lymphocytes % (Manual) Monocytes % (Manual) Nucleated RBC % Seg Neutrophils # Seg Neutrophils # Man Lymphocytes # (Manual) Monocytes # (Manual) Eosinophils # (Manual) INR D-Dimer ABG pH 7.219 L POC ABG pCO2 58.7 H POC ABG pO2 64.2 L ABG pO2 ABG HCO3 ABG O2 Saturation ABG Base Excess ABG Hemoglobin ABG Oxyhemoglobin ABG Sodium 130.5 L ABG Potassium ABG Chloride ABG Glucose 147 H Oxyhemoglobin Carboxyhemoglobin Sodium 134 L Potassium Chloride 97.9 L Carbon Dioxide BUN 64 H Creatinine 6.5 H Glucose 135 H POC Glucose Hemoglobin A1c Lactic Acid Calcium 8.0 L Phosphorus Magnesium Ferritin Total Bilirubin AST ALT Lactate Dehydrogenase C-Reactive Protein Albumin Triglycerides Arterial Blood Glucose 147 H Arterial Blood Ionized Calcium Urine Creatinine Coronavirus (PCR) Crossmatch 02/18/21 02/18/21 02/18/21 05:27 10:00 11:51 WBC RBC Hgb Hct MCV MCH MCHC RDW Plt Count Lymph % (Auto) Lymph # (Auto) Seg Neutrophils % Seg Neuts % (Manual) Lymphocytes % (Manual) Monocytes % (Manual) Nucleated RBC % Seg Neutrophils # Seg Neutrophils # Man Lymphocytes # (Manual) Monocytes # (Manual) Eosinophils # (Manual) INR D-Dimer ABG pH POC ABG pCO2 POC ABG pO2 ABG pO2 ABG HCO3 ABG O2 Saturation ABG Base Excess ABG Hemoglobin ABG Oxyhemoglobin ABG Sodium ABG Potassium ABG Chloride ABG Glucose Oxyhemoglobin Carboxyhemoglobin Sodium Potassium Chloride Carbon Dioxide BUN Creatinine Glucose POC Glucose 130 H 123 H Hemoglobin A1c Lactic Acid Calcium Phosphorus Magnesium Ferritin Total Bilirubin AST ALT Lactate Dehydrogenase C-Reactive Protein Albumin Triglycerides Arterial Blood Glucose Arterial Blood Ionized Calcium Urine Creatinine Coronavirus (PCR) Positive A Crossmatch 02/18/21 02/18/21 02/19/21 18:10 23:35 05:00 WBC RBC Hgb Hct MCV MCH MCHC RDW Plt Count Lymph % (Auto) Lymph # (Auto) Seg Neutrophils % Seg Neuts % (Manual) Lymphocytes % (Manual) Monocytes % (Manual) Nucleated RBC % Seg Neutrophils # Seg Neutrophils # Man Lymphocytes # (Manual) Monocytes # (Manual) Eosinophils # (Manual) INR D-Dimer ABG pH 7.232 L POC ABG pCO2 64.3 H POC ABG pO2 ABG pO2 ABG HCO3 ABG O2 Saturation ABG Base Excess ABG Hemoglobin 8.1 L ABG Oxyhemoglobin ABG Sodium 133.5 L ABG Potassium ABG Chloride ABG Glucose 148 H Oxyhemoglobin Carboxyhemoglobin 1.6 H Sodium Potassium Chloride Carbon Dioxide BUN Creatinine Glucose POC Glucose 123 H 137 H Hemoglobin A1c Lactic Acid Calcium Phosphorus Magnesium Ferritin Total Bilirubin AST ALT Lactate Dehydrogenase C-Reactive Protein Albumin Triglycerides Arterial Blood Glucose 148 H Arterial Blood Ionized Calcium Urine Creatinine Coronavirus (PCR) Crossmatch 02/19/21 02/19/21 02/19/21 05:12 05:45 05:45 WBC RBC Hgb Hct MCV MCH MCHC RDW Plt Count Lymph % (Auto) Lymph # (Auto) Seg Neutrophils % Seg Neuts % (Manual) Lymphocytes % (Manual) Monocytes % (Manual) Nucleated RBC % Seg Neutrophils # Seg Neutrophils # Man Lymphocytes # (Manual) Monocytes # (Manual) Eosinophils # (Manual) INR D-Dimer 4840.82 H ABG pH POC ABG pCO2 POC ABG pO2 ABG pO2 ABG HCO3 ABG O2 Saturation ABG Base Excess ABG Hemoglobin ABG Oxyhemoglobin ABG Sodium ABG Potassium ABG Chloride ABG Glucose Oxyhemoglobin Carboxyhemoglobin Sodium 135 L Potassium Chloride 97.8 L Carbon Dioxide BUN 58 H Creatinine 5.6 H Glucose 140 H POC Glucose 134 H Hemoglobin A1c Lactic Acid Calcium Phosphorus Magnesium Ferritin Total Bilirubin AST ALT Lactate Dehydrogenase 345 H C-Reactive Protein 15.20 H Albumin Triglycerides 195 H Arterial Blood Glucose Arterial Blood Ionized Calcium Urine Creatinine Coronavirus (PCR) Crossmatch 02/19/21 02/19/21 02/19/21 05:45 12:00 17:48 WBC RBC Hgb Hct MCV MCH MCHC RDW Plt Count Lymph % (Auto) Lymph # (Auto) Seg Neutrophils % Seg Neuts % (Manual) Lymphocytes % (Manual) Monocytes % (Manual) Nucleated RBC % Seg Neutrophils # Seg Neutrophils # Man Lymphocytes # (Manual) Monocytes # (Manual) Eosinophils # (Manual) INR D-Dimer ABG pH POC ABG pCO2 POC ABG pO2 ABG pO2 ABG HCO3 ABG O2 Saturation ABG Base Excess ABG Hemoglobin ABG Oxyhemoglobin ABG Sodium ABG Potassium ABG Chloride ABG Glucose Oxyhemoglobin Carboxyhemoglobin Sodium Potassium Chloride Carbon Dioxide BUN Creatinine Glucose POC Glucose 122 H 119 H Hemoglobin A1c Lactic Acid Calcium Phosphorus Magnesium Ferritin 951.8 H Total Bilirubin AST ALT Lactate Dehydrogenase C-Reactive Protein Albumin Triglycerides Arterial Blood Glucose Arterial Blood Ionized Calcium Urine Creatinine Coronavirus (PCR) Crossmatch 02/20/21 02/20/21 02/20/21 03:20 04:00 11:48 WBC RBC Hgb Hct MCV MCH MCHC RDW Plt Count Lymph % (Auto) Lymph # (Auto) Seg Neutrophils % Seg Neuts % (Manual) Lymphocytes % (Manual) Monocytes % (Manual) Nucleated RBC % Seg Neutrophils # Seg Neutrophils # Man Lymphocytes # (Manual) Monocytes # (Manual) Eosinophils # (Manual) INR D-Dimer ABG pH 7.276 L POC ABG pCO2 57.3 H POC ABG pO2 71.0 L ABG pO2 ABG HCO3 ABG O2 Saturation ABG Base Excess ABG Hemoglobin 8.2 L ABG Oxyhemoglobin 91.9 L ABG Sodium 128.1 L ABG Potassium 4.8 H ABG Chloride ABG Glucose Oxyhemoglobin Carboxyhemoglobin 1.6 H Sodium 136 L Potassium Chloride Carbon Dioxide BUN 69 H Creatinine 6.4 H Glucose POC Glucose 131 H Hemoglobin A1c Lactic Acid Calcium 8.1 L Phosphorus Magnesium Ferritin Total Bilirubin AST ALT Lactate Dehydrogenase C-Reactive Protein Albumin Triglycerides Arterial Blood Glucose Arterial Blood Ionized Calcium 4.5 L Urine Creatinine Coronavirus (PCR) Crossmatch 02/20/21 02/20/21 02/21/21 18:05 23:28 02:53 WBC RBC Hgb Hct MCV MCH MCHC RDW Plt Count Lymph % (Auto) Lymph # (Auto) Seg Neutrophils % Seg Neuts % (Manual) Lymphocytes % (Manual) Monocytes % (Manual) Nucleated RBC % Seg Neutrophils # Seg Neutrophils # Man Lymphocytes # (Manual) Monocytes # (Manual) Eosinophils # (Manual) INR D-Dimer ABG pH 7.288 L POC ABG pCO2 52.7 H POC ABG pO2 81.5 L ABG pO2 ABG HCO3 ABG O2 Saturation ABG Base Excess ABG Hemoglobin 8.5 L ABG Oxyhemoglobin 93.6 L ABG Sodium 132.5 L ABG Potassium 4.6 H ABG Chloride ABG Glucose 106 H Oxyhemoglobin Carboxyhemoglobin 1.6 H Sodium Potassium Chloride Carbon Dioxide BUN Creatinine Glucose POC Glucose 114 H 118 H Hemoglobin A1c Lactic Acid Calcium Phosphorus Magnesium Ferritin Total Bilirubin AST ALT Lactate Dehydrogenase C-Reactive Protein Albumin Triglycerides Arterial Blood Glucose 106 H Arterial Blood Ionized Calcium 4.4 L Urine Creatinine Coronavirus (PCR) Crossmatch 02/21/21 02/21/21 02/21/21 05:29 11:42 16:35 WBC RBC Hgb Hct MCV MCH MCHC RDW Plt Count Lymph % (Auto) Lymph # (Auto) Seg Neutrophils % Seg Neuts % (Manual) Lymphocytes % (Manual) Monocytes % (Manual) Nucleated RBC % Seg Neutrophils # Seg Neutrophils # Man Lymphocytes # (Manual) Monocytes # (Manual) Eosinophils # (Manual) INR D-Dimer ABG pH POC ABG pCO2 POC ABG pO2 ABG pO2 ABG HCO3 ABG O2 Saturation ABG Base Excess ABG Hemoglobin ABG Oxyhemoglobin ABG Sodium ABG Potassium ABG Chloride ABG Glucose Oxyhemoglobin Carboxyhemoglobin Sodium Potassium 5.6 H Chloride 97.6 L Carbon Dioxide BUN 68 H Creatinine 5.7 H Glucose 160 H POC Glucose 111 H 131 H Hemoglobin A1c Lactic Acid Calcium 8.0 L Phosphorus 7.90 H Magnesium 2.60 H Ferritin Total Bilirubin AST ALT Lactate Dehydrogenase C-Reactive Protein Albumin Triglycerides Arterial Blood Glucose Arterial Blood Ionized Calcium Urine Creatinine Coronavirus (PCR) Crossmatch 02/21/21 02/22/21 02/22/21 17:17 00:04 04:22 WBC RBC Hgb Hct MCV MCH MCHC RDW Plt Count Lymph % (Auto) Lymph # (Auto) Seg Neutrophils % Seg Neuts % (Manual) Lymphocytes % (Manual) Monocytes % (Manual) Nucleated RBC % Seg Neutrophils # Seg Neutrophils # Man Lymphocytes # (Manual) Monocytes # (Manual) Eosinophils # (Manual) INR D-Dimer ABG pH 7.250 L POC ABG pCO2 60.1 H POC ABG pO2 57.6 L ABG pO2 ABG HCO3 ABG O2 Saturation ABG Base Excess ABG Hemoglobin 8.8 L ABG Oxyhemoglobin 87.0 L ABG Sodium 133.4 L ABG Potassium 5.1 H ABG Chloride ABG Glucose 124 H Oxyhemoglobin Carboxyhemoglobin Sodium Potassium Chloride Carbon Dioxide BUN Creatinine Glucose POC Glucose 135 H 121 H Hemoglobin A1c Lactic Acid Calcium Phosphorus Magnesium Ferritin Total Bilirubin AST ALT Lactate Dehydrogenase C-Reactive Protein Albumin Triglycerides Arterial Blood Glucose 124 H Arterial Blood Ionized Calcium Urine Creatinine Coronavirus (PCR) Crossmatch 02/22/21 02/22/21 02/22/21 05:33 09:41 09:41 WBC 13.2 H RBC 2.35 L Hgb 7.5 L Hct 22.7 L MCV 96 H MCH MCHC RDW 17.0 H Plt Count Lymph % (Auto) Lymph # (Auto) Seg Neutrophils % Seg Neuts % (Manual) 93.0 H Lymphocytes % (Manual) 4.0 L Monocytes % (Manual) Nucleated RBC % 1.0 H Seg Neutrophils # Seg Neutrophils # Man 12.3 H Lymphocytes # (Manual) 0.5 L Monocytes # (Manual) Eosinophils # (Manual) INR D-Dimer ABG pH POC ABG pCO2 POC ABG pO2 ABG pO2 ABG HCO3 ABG O2 Saturation ABG Base Excess ABG Hemoglobin ABG Oxyhemoglobin ABG Sodium ABG Potassium ABG Chloride ABG Glucose Oxyhemoglobin Carboxyhemoglobin Sodium Potassium 5.4 H Chloride Carbon Dioxide BUN 61 H Creatinine 5.5 H Glucose 117 H POC Glucose 114 H Hemoglobin A1c Lactic Acid Calcium 8.3 L Phosphorus Magnesium Ferritin Total Bilirubin AST ALT Lactate Dehydrogenase C-Reactive Protein Albumin Triglycerides Arterial Blood Glucose Arterial Blood Ionized Calcium Urine Creatinine Coronavirus (PCR) Crossmatch 02/22/21 02/22/21 02/23/21 12:08 17:06 04:00 WBC RBC Hgb Hct MCV MCH MCHC RDW Plt Count Lymph % (Auto) Lymph # (Auto) Seg Neutrophils % Seg Neuts % (Manual) Lymphocytes % (Manual) Monocytes % (Manual) Nucleated RBC % Seg Neutrophils # Seg Neutrophils # Man Lymphocytes # (Manual) Monocytes # (Manual) Eosinophils # (Manual) INR D-Dimer ABG pH 7.246 L POC ABG pCO2 POC ABG pO2 ABG pO2 119.4 H ABG HCO3 26.6 H ABG O2 Saturation ABG Base Excess ABG Hemoglobin 8.8 L ABG Oxyhemoglobin ABG Sodium ABG Potassium ABG Chloride ABG Glucose Oxyhemoglobin Carboxyhemoglobin Sodium Potassium Chloride Carbon Dioxide BUN Creatinine Glucose POC Glucose 133 H 114 H Hemoglobin A1c Lactic Acid Calcium Phosphorus Magnesium Ferritin Total Bilirubin AST ALT Lactate Dehydrogenase C-Reactive Protein Albumin Triglycerides Arterial Blood Glucose Arterial Blood Ionized Calcium Urine Creatinine Coronavirus (PCR) Crossmatch 02/23/21 02/23/21 02/24/21 06:20 11:42 03:43 WBC RBC Hgb Hct MCV MCH MCHC RDW Plt Count Lymph % (Auto) Lymph # (Auto) Seg Neutrophils % Seg Neuts % (Manual) Lymphocytes % (Manual) Monocytes % (Manual) Nucleated RBC % Seg Neutrophils # Seg Neutrophils # Man Lymphocytes # (Manual) Monocytes # (Manual) Eosinophils # (Manual) INR D-Dimer ABG pH 7.287 L POC ABG pCO2 54.7 H POC ABG pO2 ABG pO2 ABG HCO3 ABG O2 Saturation ABG Base Excess ABG Hemoglobin 8.5 L ABG Oxyhemoglobin ABG Sodium 135.6 L ABG Potassium ABG Chloride ABG Glucose 117 H Oxyhemoglobin Carboxyhemoglobin Sodium Potassium Chloride 97.6 L Carbon Dioxide BUN 79 H Creatinine 6.2 H Glucose POC Glucose 108 H Hemoglobin A1c Lactic Acid Calcium 8.3 L Phosphorus Magnesium Ferritin Total Bilirubin AST ALT Lactate Dehydrogenase C-Reactive Protein Albumin Triglycerides Arterial Blood Glucose 117 H Arterial Blood Ionized Calcium Urine Creatinine Coronavirus (PCR) Crossmatch 02/24/21 02/24/21 02/24/21 04:25 04:25 04:25 WBC 11.5 H RBC 2.47 L Hgb 7.7 L Hct 23.5 L MCV 95 H MCH MCHC RDW 16.7 H Plt Count Lymph % (Auto) Lymph # (Auto) Seg Neutrophils % Seg Neuts % (Manual) 82.0 H Lymphocytes % (Manual) 3.0 L Monocytes % (Manual) 11.0 H Nucleated RBC % Seg Neutrophils # Seg Neutrophils # Man 9.4 H Lymphocytes # (Manual) 0.3 L Monocytes # (Manual) 1.3 H Eosinophils # (Manual) INR D-Dimer 4695.21 H ABG pH POC ABG pCO2 POC ABG pO2 ABG pO2 ABG HCO3 ABG O2 Saturation ABG Base Excess ABG Hemoglobin ABG Oxyhemoglobin ABG Sodium ABG Potassium ABG Chloride ABG Glucose Oxyhemoglobin Carboxyhemoglobin Sodium Potassium Chloride Carbon Dioxide BUN 68 H Creatinine 4.9 H Glucose 113 H POC Glucose Hemoglobin A1c Lactic Acid Calcium Phosphorus Magnesium Ferritin Total Bilirubin AST ALT Lactate Dehydrogenase C-Reactive Protein 7.20 H Albumin Triglycerides Arterial Blood Glucose Arterial Blood Ionized Calcium Urine Creatinine Coronavirus (PCR) Crossmatch 02/24/21 02/24/21 02/24/21 04:25 05:01 11:12 WBC RBC Hgb Hct MCV MCH MCHC RDW Plt Count Lymph % (Auto) Lymph # (Auto) Seg Neutrophils % Seg Neuts % (Manual) Lymphocytes % (Manual) Monocytes % (Manual) Nucleated RBC % Seg Neutrophils # Seg Neutrophils # Man Lymphocytes # (Manual) Monocytes # (Manual) Eosinophils # (Manual) INR D-Dimer ABG pH POC ABG pCO2 POC ABG pO2 ABG pO2 ABG HCO3 ABG O2 Saturation ABG Base Excess ABG Hemoglobin ABG Oxyhemoglobin ABG Sodium ABG Potassium ABG Chloride ABG Glucose Oxyhemoglobin Carboxyhemoglobin Sodium Potassium Chloride Carbon Dioxide BUN Creatinine Glucose POC Glucose 116 H 112 H Hemoglobin A1c Lactic Acid Calcium Phosphorus Magnesium Ferritin 1116.0 H Total Bilirubin AST ALT Lactate Dehydrogenase C-Reactive Protein Albumin Triglycerides Arterial Blood Glucose Arterial Blood Ionized Calcium Urine Creatinine Coronavirus (PCR) Crossmatch 02/24/21 02/25/21 02/25/21 18:11 03:42 05:58 WBC RBC Hgb Hct MCV MCH MCHC RDW Plt Count Lymph % (Auto) Lymph # (Auto) Seg Neutrophils % Seg Neuts % (Manual) Lymphocytes % (Manual) Monocytes % (Manual) Nucleated RBC % Seg Neutrophils # Seg Neutrophils # Man Lymphocytes # (Manual) Monocytes # (Manual) Eosinophils # (Manual) INR D-Dimer ABG pH 7.287 L POC ABG pCO2 58.2 H POC ABG pO2 ABG pO2 ABG HCO3 ABG O2 Saturation ABG Base Excess ABG Hemoglobin 8.4 L ABG Oxyhemoglobin 93.7 L ABG Sodium ABG Potassium ABG Chloride ABG Glucose 104 H Oxyhemoglobin Carboxyhemoglobin Sodium Potassium Chloride Carbon Dioxide BUN Creatinine Glucose POC Glucose 109 H 109 H Hemoglobin A1c Lactic Acid Calcium Phosphorus Magnesium Ferritin Total Bilirubin AST ALT Lactate Dehydrogenase C-Reactive Protein Albumin Triglycerides Arterial Blood Glucose 104 H Arterial Blood Ionized Calcium 4.5 L Urine Creatinine Coronavirus (PCR) Crossmatch 02/25/21 02/25/21 02/25/21 09:03 13:47 16:50 WBC RBC Hgb Hct MCV MCH MCHC RDW Plt Count Lymph % (Auto) Lymph # (Auto) Seg Neutrophils % Seg Neuts % (Manual) Lymphocytes % (Manual) Monocytes % (Manual) Nucleated RBC % Seg Neutrophils # Seg Neutrophils # Man Lymphocytes # (Manual) Monocytes # (Manual) Eosinophils # (Manual) INR D-Dimer 6536.84 H ABG pH POC ABG pCO2 POC ABG pO2 ABG pO2 ABG HCO3 ABG O2 Saturation ABG Base Excess ABG Hemoglobin ABG Oxyhemoglobin ABG Sodium ABG Potassium ABG Chloride ABG Glucose Oxyhemoglobin Carboxyhemoglobin Sodium Potassium Chloride Carbon Dioxide BUN Creatinine Glucose POC Glucose 144 H 114 H Hemoglobin A1c Lactic Acid Calcium Phosphorus Magnesium Ferritin Total Bilirubin AST ALT Lactate Dehydrogenase C-Reactive Protein Albumin Triglycerides Arterial Blood Glucose Arterial Blood Ionized Calcium Urine Creatinine Coronavirus (PCR) Crossmatch 02/25/21 02/26/21 02/26/21 23:53 03:35 05:36 WBC RBC Hgb Hct MCV MCH MCHC RDW Plt Count Lymph % (Auto) Lymph # (Auto) Seg Neutrophils % Seg Neuts % (Manual) Lymphocytes % (Manual) Monocytes % (Manual) Nucleated RBC % Seg Neutrophils # Seg Neutrophils # Man Lymphocytes # (Manual) Monocytes # (Manual) Eosinophils # (Manual) INR D-Dimer ABG pH 7.179 L POC ABG pCO2 76.6 H POC ABG pO2 ABG pO2 ABG HCO3 ABG O2 Saturation ABG Base Excess ABG Hemoglobin 9.0 L ABG Oxyhemoglobin ABG Sodium 134.8 L ABG Potassium ABG Chloride ABG Glucose 118 H Oxyhemoglobin Carboxyhemoglobin Sodium Potassium Chloride Carbon Dioxide BUN Creatinine Glucose POC Glucose 110 H 113 H Hemoglobin A1c Lactic Acid Calcium Phosphorus Magnesium Ferritin Total Bilirubin AST ALT Lactate Dehydrogenase C-Reactive Protein Albumin Triglycerides Arterial Blood Glucose 118 H Arterial Blood Ionized Calcium Urine Creatinine Coronavirus (PCR) Crossmatch 02/26/21 02/26/21 02/26/21 05:48 05:48 05:48 WBC 11.4 H RBC 2.40 L Hgb 7.5 L Hct 23.2 L MCV 97 H MCH MCHC RDW 17.4 H Plt Count Lymph % (Auto) Lymph # (Auto) Seg Neutrophils % Seg Neuts % (Manual) Lymphocytes % (Manual) Monocytes % (Manual) Nucleated RBC % Seg Neutrophils # Seg Neutrophils # Man Lymphocytes # (Manual) Monocytes # (Manual) Eosinophils # (Manual) INR D-Dimer ABG pH POC ABG pCO2 POC ABG pO2 ABG pO2 ABG HCO3 ABG O2 Saturation ABG Base Excess ABG Hemoglobin ABG Oxyhemoglobin ABG Sodium ABG Potassium ABG Chloride ABG Glucose Oxyhemoglobin Carboxyhemoglobin Sodium Potassium Chloride Carbon Dioxide BUN 72 H Creatinine 4.5 H Glucose 112 H POC Glucose Hemoglobin A1c Lactic Acid Calcium 7.7 L Phosphorus Magnesium Ferritin 867.8 H Total Bilirubin AST ALT Lactate Dehydrogenase C-Reactive Protein 5.90 H Albumin Triglycerides Arterial Blood Glucose Arterial Blood Ionized Calcium Urine Creatinine Coronavirus (PCR) Crossmatch 02/26/21 02/26/21 02/26/21 08:00 11:29 18:13 WBC RBC Hgb Hct MCV MCH MCHC RDW Plt Count Lymph % (Auto) Lymph # (Auto) Seg Neutrophils % Seg Neuts % (Manual) Lymphocytes % (Manual) Monocytes % (Manual) Nucleated RBC % Seg Neutrophils # Seg Neutrophils # Man Lymphocytes # (Manual) Monocytes # (Manual) Eosinophils # (Manual) INR D-Dimer ABG pH 7.228 L POC ABG pCO2 70.2 H POC ABG pO2 79.7 L ABG pO2 ABG HCO3 ABG O2 Saturation ABG Base Excess ABG Hemoglobin 7.6 L ABG Oxyhemoglobin 93.2 L ABG Sodium 135.7 L ABG Potassium ABG Chloride ABG Glucose 119 H Oxyhemoglobin Carboxyhemoglobin Sodium Potassium Chloride Carbon Dioxide BUN Creatinine Glucose POC Glucose 110 H 115 H Hemoglobin A1c Lactic Acid Calcium Phosphorus Magnesium Ferritin Total Bilirubin AST ALT Lactate Dehydrogenase C-Reactive Protein Albumin Triglycerides Arterial Blood Glucose 119 H Arterial Blood Ionized Calcium Urine Creatinine Coronavirus (PCR) Crossmatch 02/26/21 02/27/21 02/27/21 23:18 04:00 05:04 WBC RBC Hgb Hct MCV MCH MCHC RDW Plt Count Lymph % (Auto) Lymph # (Auto) Seg Neutrophils % Seg Neuts % (Manual) Lymphocytes % (Manual) Monocytes % (Manual) Nucleated RBC % Seg Neutrophils # Seg Neutrophils # Man Lymphocytes # (Manual) Monocytes # (Manual) Eosinophils # (Manual) INR D-Dimer ABG pH 7.316 L POC ABG pCO2 49.0 H POC ABG pO2 111.2 H ABG pO2 ABG HCO3 ABG O2 Saturation ABG Base Excess ABG Hemoglobin 7.7 L ABG Oxyhemoglobin ABG Sodium 135.0 L ABG Potassium ABG Chloride ABG Glucose 113 H Oxyhemoglobin Carboxyhemoglobin Sodium Potassium Chloride Carbon Dioxide BUN Creatinine Glucose POC Glucose 114 H 112 H Hemoglobin A1c Lactic Acid Calcium Phosphorus Magnesium Ferritin Total Bilirubin AST ALT Lactate Dehydrogenase C-Reactive Protein Albumin Triglycerides Arterial Blood Glucose 113 H Arterial Blood Ionized Calcium 4.4 L Urine Creatinine Coronavirus (PCR) Crossmatch 02/27/21 02/27/21 02/27/21 12:13 18:30 23:40 WBC RBC Hgb Hct MCV MCH MCHC RDW Plt Count Lymph % (Auto) Lymph # (Auto) Seg Neutrophils % Seg Neuts % (Manual) Lymphocytes % (Manual) Monocytes % (Manual) Nucleated RBC % Seg Neutrophils # Seg Neutrophils # Man Lymphocytes # (Manual) Monocytes # (Manual) Eosinophils # (Manual) INR D-Dimer ABG pH POC ABG pCO2 POC ABG pO2 ABG pO2 ABG HCO3 ABG O2 Saturation ABG Base Excess ABG Hemoglobin ABG Oxyhemoglobin ABG Sodium ABG Potassium ABG Chloride ABG Glucose Oxyhemoglobin Carboxyhemoglobin Sodium Potassium Chloride Carbon Dioxide BUN Creatinine Glucose POC Glucose 127 H 129 H 115 H Hemoglobin A1c Lactic Acid Calcium Phosphorus Magnesium Ferritin Total Bilirubin AST ALT Lactate Dehydrogenase C-Reactive Protein Albumin Triglycerides Arterial Blood Glucose Arterial Blood Ionized Calcium Urine Creatinine Coronavirus (PCR) Crossmatch 02/28/21 02/28/21 02/28/21 04:07 05:29 10:22 WBC RBC Hgb Hct MCV MCH MCHC RDW Plt Count Lymph % (Auto) Lymph # (Auto) Seg Neutrophils % Seg Neuts % (Manual) Lymphocytes % (Manual) Monocytes % (Manual) Nucleated RBC % Seg Neutrophils # Seg Neutrophils # Man Lymphocytes # (Manual) Monocytes # (Manual) Eosinophils # (Manual) INR D-Dimer ABG pH 7.260 L POC ABG pCO2 67.6 H POC ABG pO2 ABG pO2 ABG HCO3 ABG O2 Saturation ABG Base Excess ABG Hemoglobin 7.9 L ABG Oxyhemoglobin ABG Sodium ABG Potassium ABG Chloride ABG Glucose 129 H Oxyhemoglobin Carboxyhemoglobin Sodium Potassium Chloride Carbon Dioxide BUN 68 H Creatinine 3.5 H Glucose 117 H POC Glucose 117 H Hemoglobin A1c Lactic Acid Calcium 7.9 L Phosphorus Magnesium Ferritin Total Bilirubin AST ALT Lactate Dehydrogenase C-Reactive Protein Albumin Triglycerides Arterial Blood Glucose 129 H Arterial Blood Ionized Calcium Urine Creatinine Coronavirus (PCR) Crossmatch 02/28/21 11:51 WBC RBC Hgb Hct MCV MCH MCHC RDW Plt Count Lymph % (Auto) Lymph # (Auto) Seg Neutrophils % Seg Neuts % (Manual) Lymphocytes % (Manual) Monocytes % (Manual) Nucleated RBC % Seg Neutrophils # Seg Neutrophils # Man Lymphocytes # (Manual) Monocytes # (Manual) Eosinophils # (Manual) INR D-Dimer ABG pH POC ABG pCO2 POC ABG pO2 ABG pO2 ABG HCO3 ABG O2 Saturation ABG Base Excess ABG Hemoglobin ABG Oxyhemoglobin ABG Sodium ABG Potassium ABG Chloride ABG Glucose Oxyhemoglobin Carboxyhemoglobin Sodium Potassium Chloride Carbon Dioxide BUN Creatinine Glucose POC Glucose 123 H Hemoglobin A1c Lactic Acid Calcium Phosphorus Magnesium Ferritin Total Bilirubin AST ALT Lactate Dehydrogenase C-Reactive Protein Albumin Triglycerides Arterial Blood Glucose Arterial Blood Ionized Calcium Urine Creatinine Coronavirus (PCR) Crossmatch
[2021-03-01] MEDS: fentaNYL DRIP Premix 2,000 MCG/100 ML BAG IV SCH ×4 (00:28→20:25)
[2021-03-01] MEDS: HEPARIN 5,000 UNIT/1 ML VIAL SUB-Q SCH ×3 (06:01→22:13)
--- NOTE | 2021-03-01 09:10 | Progress Note ---
Assessment and Plan Assessment and plan: This is a 60-year-old male with diabetes mellitus, hypertension, hyperlipidemia, chronic renal insufficiency presents to the emergency department on 01/23 with shortness of breath, fevers chills, loss of smell and taste and body aches for the past 3 days via EMS. Per EMS patient's oxygen saturation on room air was 50% and after being placed on nonrebreather it increased 75%. Upon arrival to the emergency department patient was being bagged by EMS. In the emergency room patient was intubated due to severe hypoxia, increased work of breathing and lethargy. Patient was sedated on propofol and fentanyl. Patient presented with fever, tachycardia, tachypnea and acute hypoxic respiratory failure with PNA on CXR meeting Sepsis criteria. Lab work in the emergency department revealed hyponatremia, hypokalemia, hypochloremia, elevated CR/BUN and CXR showed bilateral pneumonia. Patient was admitted to the hospital service as a COVID-19 PUI with consults to infectious disease, nephrology and critical care medicine. Sepsis COVID-19 pneumonia Coag-neg Staph bacteremia Acute hypoxic respiratory failure ARDS Acute kidney injury, HD initiated 02/03 Anemia Anasarca Diabetes mellitus Hypertension Hyperlipidemia Chronic renal insufficiency Elevated D-dimer Morbid obesity 01/24/2021: Patient is intubated and sedated, patient is positive for COVID-19 infection. ID was consulted and put on dexamethasone and remdesivir. Patient has DEISI and nephrology is following. Creatinine stable, patient is urinating. Discussed with nephrology and he is okay with remdesivir. Pulmonary critical care is following for his vent setting. PEEP of 8 and FiO2 of 85%. Patient was alert and off sedatives. 01/25/2021; patient is intubated and on mechanical ventilation. Continue with treatment of Covid. Nephrology and ID is following. Pulmonary is following for vent management 01/26: Remains on mechanical ventilation and [facility] increased his PEEP. [facility] has ordered Precedex for sedation. Possibly need to prone this p.m. No acute events reported overnight. This morning his D-dimer is greater than 10,000 and we have started him on Lovenox 120 mg daily. Nutrition has been consulted for initiation of tube feedings. Patient remains sedated on propofol 40 and fentanyl for the time my examination this morning. 01/27: Continue Lovenox, remdesivir and empiric antibiotics. Patient had a T-max of 101 overnight. The time of examination patient is on CMV 500/18/14/0.61. Kidney function slightly worsened. Sedated on fentanyl ground-level fall and Precedex. Nephrology has increased IV fluids to 100 ml/hr. Continue to trend BMP and CBC. Sedation vacation attempt by RN this AM. 01/28: Patient completed antibiotics today [facility] will paralyze patient and increase sedation. PICC line ordered for possible vasopressor therapy need. Patient's D-dimer remains greater than 10,000 and he still has hyperchloremia. Patient's kidney function has improved today. May need to prone the patient if no improvement in oxygenation is noted in the next 24 hours. The time of my examination patient is sedated with propofol, fentanyl and Precedex and is on assist control 500/18/16/0.80 hypoxic on ABG on 60% FiO2. 01/29: Patient was started on Nimbex yesterday and his ABG this morning showed respiratory acidosis with hypercapnia and his respiratory rate was increased. We will obtain a repeat ABG this afternoon. This morning patient is hypernatremic, hyperkalemic and hyperchloremic. His potassium has been dylon ected with the management and will obtain repeat BMP tomorrow. His kidney functions have remained stable and we will await nephrology's input. No acute events reported overnight. This morning the time my examination patient sedated with propofol, Precedex and fentanyl and paralyzed with Nimbex. He is on assist control 500/24/16 0.80. 01/30: This morning patient is hypokalemic again and was given Kayexalate. Patient has hypernatremia and hyper chloremia and his renal function is slightly worse after receiving Lasix yesterday. His D-dimer remains greater than 10,000 and he is still on a paralytic. Patient is sedated on Precedex, fentanyl, propofol. Mechanical ventilation settings seven-point //. [facility] has decided to continue paralytics for 48 more hours and will attempt proning the patient. Increased free water flushes 300 cc every 4 hours. Patient states has restarted his antibiotics cefepime and vancomycin and recultured. 01/31/21 Hyperkalemia, Treated 02/01/21 Hyperkalemia, Treated 02/02: Patient's kidney function continues to worsen and a stat BMP this morning shows BUN/creatinine 20/6.1 and he remains hypocalcemic and hypernatremic, hypokalemic and hypochloremic. Patient received 2 g of calcium gluconate and Kayexalate and his repeat potassium was 4.3 this afternoon. He remains antibiotic therapy and steroids. Nephrology has placed the patient on bicarb drip given metabolic acidosis and has decided to hold off hemodialysis till tomorrow.The time my examination patient is sedated on fentanyl, Precedex and on assist control 500/20/12/0.70. s/p paralytic. 02/03: Today patient's ABG shows respiratory acidosis however it is improving, hypernatremia, hyperchloremia, metabolic acidosis on BMP, worsening kidney function BUN/creatinine 130/9.2 with hyperphosphatemia. Patient received a Vas- Cath to his right IJ for initiation of dialysis. At the time of my examination patient remains sedated on fentanyl, propofol and Precedex with vasopressor support with Levophed at 2. 02/04: At the time of examination patient was on assist control tidal volume 500, rate 40, PEEP of 12, FiO2 85%. Patient had a T-max of 100.9 and infectious disease has stopped his vancomycin given negative MRSA. This afternoon patient respiked his temperature and was pancultured again. Patient was started on hemodialysis yesterday and will receive HD again today. Patient is sedated on Precedex, propofol, fentanyl and remains on Levophed. He is on assist control tidal volume 500, rate of 30, PEEP of 12, FiO2 of 85%. Patient still has some respiratory acidosis however his hypernatremia and hyperchloremia have improved and his metabolic acidosis has resolved. Patient will receive hemodialysis today 02/05: Patient continues to have low-grade fever temp this morning time exami nation he was on assist control tidal volume 500, and sedated on propofol/fentanyl/Precedex and is on Levophed. Hemodialysis per nephrology. Antibiotics per ID. Patient's blood culture from 02/04 grew gram-positive cocci in clusters in 1/2 bottles and he was started on vancomycin. 02/06: Patients ABG showed respiratory acidosis and the tracings were changed however a repeat ABG showed showed acidosis.[facility] will start a bicarb drip after giving 2 amps of bicarb push. Yesterday patient blood cultures grew gram- positive cocci and he was started on vancomycin. At the time my examination patient was on assist control tidal volume 550, rate 34, PEEP 16, FiO2 90% and sedated on fentanyl, Precedex, propofol elevated pressure support with Levophed. Bilateral lower extremity Doppler ultrasounds done yesterday showed no evidence of DVT/SVT. 02/07/2021; patient is still on the vent with PEEP of 16 and FiO2 of 90%, sedated with fentanyl Precedex and propofol. Patient still requiring Levophed. Patient was sedated yesterday and was given bicarb push. Blood culture grew gram- positive cocci in clusters and he is on vancomycin, will follow identification. 02/08/2021;patient is still on the vent with PEEP of 16 and FiO2 of 90%, sedated with fentanyl Precedex and propofol. Patient still requiring Levophed. Patient was sedated yesterday and was given bicarb push. Blood culture grew gram-posi tive cocci in clusters and he is on vancomycin, will follow identification. Patient is currently on dialysis. Patient is anemic transfuse if hemoglobin is below 7. 4/12: This morning patient has slight hypokalemia, hypochorlemia, hyponatremia and metabolic alkalosis. [facility] will continue bicarb gtt given that the patient does not have HD access at this time. We will replete the potassium and recheck BMP in the AM. We will type and cross in anticipation of PRBC transfusion. This morning he is sedated on Ativan, fentayl, and precedex. Will obtain a triglyceride level today in hopes to resume propofol. Patient is alkalotic and BMP however we will continue with bicarb drip per [facility] given that the patient does not have any access for hemodialysis. Anticipate replacing hemodialysis catheter tomorrow or Tuesday. The time my examination he is on AC TV 550, Rate 34, PeeP 16, FiO2 .65. 13: A.m. labs still pending, [facility] plans to replace HD catheter tomorrow as the patient is still febrile however his fever curve is trending down, remains on a bicarb drip and on vancomycin. Today at the time my examination patient was sedated on Precedex, Ativan and fentanyl and he is on assist control tidal 11/04/1951, rate 34, PEEP 16, FiO2 65%. Overnight patient was hypotensive and received 1 dose of midodrine. 02/11: Patient is still having low-grade temperatures that we will obtain a bilateral lower upper extremity venous Doppler ultrasound given that his repeat cultures have been negative so far. Patient received a Vas-Cath today for hemodialysis. The time examination patient is on assist control tidal volume 550, rate of 34, PEEP of 16 and FiO2 of 75%. Patient was hypokalemic and anemic yesterday which were both repleted with potassium and 1 unit PRBC. 02/12: 02/12: Patient had a 12-second run of V. tach today, his potassium and magnesium were low which was repleted. Renal adjusted potassium bath. We will obtain a triglyceride level in hopes to restarting to prevent as needed. This morning at the time my examination patient was sedated on fentanyl, Ativan and Precedex and remained on a bicarb drip. He was on assist control tidal volume 550, rate 34, PEEP 16, FiO2 85%. We will obtain a occult stool given no evident source of bleeding and need for transfusion. Anemia possibly due to hemodialysis. 02/13: Patient's T-max was 100.7, remains on fentanyl, Ativan, Precedex and bicarb drip this morning at some examination on assist control tidal volume 550, rate 34, PEEP 16 and FiO2 85%. On the labs this morning is slightly hypokalemic and remains metabolic alkalotic on BMP. His occult was positive. His Lovenox and consult GI. Patient received hemodialysis today. 02/14: cont PPI, GI recommended to scope now, monitor clinically, tolerating TF, remains intubated. Hb 6.9 today - transfuse another unit. very poor prognosis. 02/15: H&H appears to be stable following 1 unit of transfusion yesterday. Continue to hold heparin and aspirin products. Continue to monitor clinically. Poor prognosis. Wean off from vent as tolerated. 02/16: Infectious disease has signed off, his Ativan drip was discontinued and to prevent drip will be started when patient needs it. T-max 100.6 yesterday afternoon. He received hemodialysis today and at the time my examination was still on mechanical ventilation assist control tidal volume 550, rate 34, PEEP 16 on 70% FiO2. Patient was sedated on fentanyl dexamethasone and Ativan. No acute events reported overnight. 02/17: This morning patient was scheduled to get 2 units PRBC however his repeat H/H after 1 unit PRBC was 7.6/22.8 and the width of the second unit PRBC. This morning patient was sedated on fentanyl, propofol, Precedex and on assist control tolerated by 50, rate 34, PEEP of 16, FiO2 35%. Wound care was consulted today for his upper lip wound. Nephrology continues to withhold dialysis. No acute events reported overnight. Dr. Adkins was unable to contact family for updates. 02/18: Family updated by Dr. Adkins and Dr. Reddy. Patient had a hemodialysis today. The time my examination patient was on assist control tidal volume 550, rate 34, PEEP 16 and FiO2 35%. Overnight patient had a CT head and he was placed on 3% FiO2 and took "a long time to recover" per RN report. 02/19: Patient's D-dimer is trending up therefore he was started on prophylactic anticoagulation, no bowel movement for several days so he was started on mag citrate today. The time examination patient is sedated on Precedex 1.2, fentanyl 3, propofol 20 on assist control tidal volume 550, rate 34, PEEP 16, 80% FiO2 and on his ABG his PaO2 is 106. RT will try to wean as tolerated. Repeat COVID-19 PCR today was positive.Dr. Adkins updated the family today. 02/20: Patient received hemodialysis today. In the time my examination patient was sedated on Precedex, fentanyl, propofol and on assist control tidal line 550, rate 34, PEEP of 16 and 75% FiO2. Patient had a bowel movement yesterday. 02/21 no new concerns at this time afebrile Hospital course remains uncomplicated. 02/22. Hospital course complicated by an episode of ectopy over the p.m. Patient required Levophed for blood pressure control. Remains intubated sedated. Tolerated hemodialysis yesterday. 02/23: At the time my examination patient is on assist control tidal volume 550, rate 34, PEEP 16, FiO2 70% and is not sedated. Patient does not follow commands however his eyes open spontaneously and he does not track/focus. 02/24: Neurology consulted, EEG pending. No acute events reported overnight. Patient remains on hyperventilation totaling 550, rate 34, PEEP of 16 on 70% FiO2. Patient received hemodialysis yesterday. 02/25: EEG from 02/24 is suggestive of encephalopathy (toxic metabolic etiology cannot be excluded). This afternoon his peak pressures and and mean airway pressure is elevated so we obtained a CXR and ABG. Results were called to Dr. Masters. Patient received 2 mg of Versed was placed back on his sedation with fentanyl and Precedex. 02/26: Patient is on pressure ventilation FiO2 70%, Pressure inspiration 25, rate 34, PEEP 10 and sedated on fentanyl at 2mcgs and Precedex at 0.2. We will obtain a cxr for evaluation. Patient seems to be much more comfortable today. 02/27: CXr unchanges, at this time my examination patient is on pressure control ventilation FiO2 70%, pressure support 26, rate 34 n.p.o. for 10 and sedated on fentanyl at 2 and Precedex at 0.1. His latest ABG 7.3, CO2 49, PO2 111, base excess 24. Patient is to receive hemodialysis today. No acute events reported overnight. Patient still not following commands. 02/28: Continue mechanical ventilation per pulmonary recommendations. Patient currently in AC mode ventilation rate 34, FiO2 70%, PEEP 15. 02/24 EEG finding consistent with encephalopathy and/or drug effect, possibility of toxic metabolic etiology cannot be excluded, possibility of structural lesion on the left side cannot be excluded given left being slightly slower than the right. Continue hemodialysis per nephrology. Currently with sedation of fentanyl and Precedex. Pulmonary plans for trach when ventilator settings allow. 03/01: Patient remains on mechanical ventilation AC mode, FiO2 70%, PEEP of 10. Hemodialysis initiated on 02/03/2021. Continue per nephrology. Patient will need tracheostomy once ventilator settings allow. Continue supportive care with tube feedings. Aspiration precautions. Patient appears to have penile ulceration and purulence. Consult urology for further evaluation. Prognosis remains guarded. History Interval history: No new issues overnight. Hospitalist Physical - Constitutional Vitals: Temp Pulse Resp BP Pulse Ox 99.2 F 103 H 34 H 109/60 98 03/01/21 01:57 03/01/21 08:32 03/01/21 08:15 03/01/21 08:32 03/01/21 08:32 General appearance: Present: no acute distress, obese, other (Sedated on mechanical ventilation) - EENT Eyes: Present: PERRL, EOM intact ENT: hearing intact, clear oral mucosa, dentition normal - Neck Neck: Present: supple, normal ROM - Respiratory Respiratory effort: normal Respiratory: bilateral: CTA - Cardiovascular Rhythm: regular Heart Sounds: Present: S1 & S2. Absent: gallop, rub - Extremities Extremities: no ischemia, No edema, Full ROM - Abdominal General gastrointestinal: soft, non-tender, non-distended, normal bowel sounds - Integumentary Integumentary: Present: clear, warm, dry - Neurologic Neurologic: CNII-XII intact, moves all extremities HEART Score - HEART Score Risk factors: 1-2 risk factors Troponin: < normal limit - Critical Actions Critical Actions: 0-3 pts:0.9-1.7%risk of adverse cardiac event.Candidate for discharge Results - Labs CBC & Chem 7: 02/26/21 05:48 03/01/21 06:00 Labs: Laboratory Last Values WBC 11.4 K/mm3 (4.5-11.0) H 02/26/21 05:48 RBC 2.40 M/mm3 (3.65-5.03) L 02/26/21 05:48 Hgb 7.5 gm/dl (11.8-15.2) L 02/26/21 05:48 Hct 23.2 % (35.5-45.6) L 02/26/21 05:48 MCV 97 fl (84-94) H 02/26/21 05:48 MCH 31 pg (28-32) 02/26/21 05:48 MCHC 32 % (32-34) 02/26/21 05:48 RDW 17.4 % (13.2-15.2) H 02/26/21 05:48 Plt Count 351 K/mm3 (140-440) 02/26/21 05:48 Lymph % (Auto) 11.0 % (13.4-35.0) L 02/15/21 05:00 [place] % (Auto) 4.2 % (0.0-7.3) 02/15/21 05:00 Eos % (Auto) 1.2 % (0.0-4.3) 02/15/21 05:00 Baso % (Auto) 0.6 % (0.0-1.8) 02/15/21 05:00 Lymph # (Auto) 1.1 K/mm3 (1.2-5.4) L 02/15/21 05:00 [place] # (Auto) 0.4 K/mm3 (0.0-0.8) 02/15/21 05:00 Eos # (Auto) 0.1 K/mm3 (0.0-0.4) 02/15/21 05:00 Baso # (Auto) 0.1 K/mm3 (0.0-0.1) 02/15/21 05:00 Add Manual Diff Complete 02/24/21 04:25 Total Counted 100 02/24/21 04:25 Seg Neutrophils % 83.0 % (40.0-70.0) H 02/15/21 05:00 Seg Neuts % (Manual) 82.0 % (40.0-70.0) H 02/24/21 04:25 Band Neutrophils % 2.0 % 02/16/21 Unknown Lymphocytes % (Manual) 3.0 % (13.4-35.0) L 02/24/21 04:25 Reactive Lymphs % (Man) 1.0 % 01/27/21 05:29 Monocytes % (Manual) 11.0 % (0.0-7.3) H 02/24/21 04:25 Eosinophils % (Manual) 1.0 % (0.0-4.3) 02/24/21 04:25 Basophils % (Manual) 1.0 % (0.0-1.8) 02/24/21 04:25 Metamyelocytes % 2.0 % 02/24/21 04:25 Nucleated RBC % Not Reportable 02/24/21 04:25 Seg Neutrophils # 8.6 K/mm3 (1.8-7.7) H 02/15/21 05:00 Seg Neutrophils # Man 9.4 K/mm3 (1.8-7.7) H 02/24/21 04:25 Band Neutrophils # 0.0 K/mm3 02/24/21 04:25 Lymphocytes # (Manual) 0.3 K/mm3 (1.2-5.4) L 02/24/21 04:25 Abs React Lymphs (Man) 0.0 K/mm3 02/24/21 04:25 Monocytes # (Manual) 1.3 K/mm3 (0.0-0.8) H 02/24/21 04:25 Eosinophils # (Manual) 0.1 K/mm3 (0.0-0.4) 02/24/21 04:25 Basophils # (Manual) 0.1 K/mm3 (0.0-0.1) 02/24/21 04:25 Metamyelocytes # 0.2 K/mm3 02/24/21 04:25 Myelocytes # 0.0 K/mm3 02/24/21 04:25 Promyelocytes # 0.0 K/mm3 02/24/21 04:25 Blast Cells # 0.0 K/mm3 02/24/21 04:25 WBC Morphology Not Reportable 02/24/21 04:25 Hypersegmented Neuts Not Reportable 02/24/21 04:25 Hyposegmented Neuts Not Reportable 02/24/21 04:25 Hypogranular Neuts Not Reportable 02/24/21 04:25 Smudge Cells Not Reportable 02/24/21 04:25 Toxic Granulation Not Reportable 02/24/21 04:25 Toxic Vacuolation Not Reportable 02/24/21 04:25 Dohle Bodies Not Reportable 02/24/21 04:25 Pelger-Huet Anomaly Not Reportable 02/24/21 04:25 Fátima Rods Not Reportable 02/24/21 04:25 Platelet Estimate Consistent w auto 02/24/21 04:25 Clumped Platelets Not Reportable 02/24/21 04:25 Plt Clumps, EDTA Not Reportable 02/24/21 04:25 Large Platelets Not Reportable 02/24/21 04:25 Giant Platelets Not Reportable 02/24/21 04:25 Platelet Satelliting Not Reportable 02/24/21 04:25 Plt Morphology Comment Not Reportable 02/24/21 04:25 RBC Morphology Not Reportable 02/24/21 04:25 Dimorphic RBCs Not Reportable 02/24/21 04:25 Polychromasia Few 02/24/21 04:25 Hypochromasia Not Reportable 02/24/21 04:25 Poikilocytosis Not Reportable 02/24/21 04:25 Anisocytosis 1+ 02/24/21 04:25 Microcytosis Not Reportable 02/24/21 04:25 Macrocytosis Not Reportable 02/24/21 04:25 Spherocytes Not Reportable 02/24/21 04:25 Pappenheimer Bodies Not Reportable 02/24/21 04:25 Sickle Cells Not Reportable 02/24/21 04:25 Target Cells Not Reportable 02/24/21 04:25 Tear Drop Cells Not Reportable 02/24/21 04:25 Ovalocytes Not Reportable 02/24/21 04:25 Helmet Cells Not Reportable 02/24/21 04:25 Potter-[place]ow Bodies Not Reportable 02/24/21 04:25 [place] Rings Not Reportable 02/24/21 04:25 Ludmila Cells Not Reportable 02/24/21 04:25 Bite Cells Not Reportable 02/24/21 04:25 Crenated Cell Not Reportable 02/24/21 04:25 Elliptocytes Not Reportable 02/24/21 04:25 Acanthocytes (Spur) Not Reportable 02/24/21 04:25 Rouleaux Not Reportable 02/24/21 04:25 Hemoglobin C Crystals Not Reportable 02/24/21 04:25 Schistocytes Not Reportable 02/24/21 04:25 Malaria parasites Not Reportable 02/24/21 04:25 Aquiles Bodies Not Reportable 02/24/21 04:25 Hem Pathologist Commnt No 02/24/21 04:25 PT 14.9 Sec. (12.2-14.9) 02/11/21 08:27 INR 1.17 (0.87-1.13) H 02/11/21 08:27 D-Dimer 6536.84 ng/mlDDU (0-234) H 02/25/21 09:03 ABG pH 7.328 (7.320-7.450) 03/01/21 03:29 POC ABG pCO2 52.3 mmHg (32.0-48.0) H 03/01/21 03:29 ABG pCO2 62.7 mm Hg 02/23/21 04:00 POC ABG pO2 115.1 mmHg (83-108) H 03/01/21 03:29 ABG pO2 119.4 mm Hg (80.0-90.0) H 02/23/21 04:00 POC ABG HCO3 26.8 03/01/21 03:29 ABG HCO3 26.6 mmol/L (20.0-26.0) H 02/23/21 04:00 ABG O2 Saturation 98.5 (0-100) 03/01/21 03:29 ABG O2 Content 12.0 (0.0-44) 02/23/21 04:00 POC ABG Base Excess 0.6 03/01/21 03:29 ABG Base Excess -1.2 mmol/L (-2.0-3.0) 02/23/21 04:00 ABG Hemoglobin 7.5 (12.0-17.5) L 03/01/21 03:29 ABG Oxyhemoglobin 96.9 (94-98) 03/01/21 03:29 ABG Carboxyhemoglobin 1.8 % (0.0-5.0) 02/23/21 04:00 ABG Methemoglobin 0 (0.0-1.5) 03/01/21 03:29 ABG Sodium 135.6 mmol/L (136.0-145.0) L 03/01/21 03:29 ABG Potassium 3.8 mmol/L (3.40-4.50) 03/01/21 03:29 ABG Chloride 101.0 mmol/L (98-107) 03/01/21 03:29 ABG Glucose 117 mg/dL (65-95) H 03/01/21 03:29 Oxyhemoglobin 95.4 % (95.0-99.0) 02/23/21 04:00 Carboxyhemoglobin 1.6 (0.5-1.5) H 03/01/21 03:29 FiO2 70 % 02/23/21 04:00 FiO2 % 70.0 03/01/21 03:29 Sodium 141 mmol/L (137-145) 03/01/21 06:00 Potassium 4.0 mmol/L (3.6-5.0) 03/01/21 06:00 Chloride 100.3 mmol/L (98-107) 03/01/21 06:00 Carbon Dioxide 30 mmol/L (22-30) 03/01/21 06:00 Anion Gap 15 mmol/L 03/01/21 06:00 BUN 78 mg/dL (9-20) H 03/01/21 06:00 Creatinine 3.6 mg/dL (0.8-1.3) H 03/01/21 06:00 Estimated GFR 21 ml/min 03/01/21 06:00 BUN/Creatinine Ratio 22 % 03/01/21 06:00 Glucose 110 mg/dL (75-100) H 03/01/21 06:00 POC Glucose 112 mg/dL (70-105) H 03/01/21 00:31 Hemoglobin A1c 6.3 % (4-6) H 02/02/21 16:00 Lactic Acid 1.90 mmol/L (0.7-2.0) 01/24/21 14:38 Calcium 8.0 mg/dL (8.4-10.2) L 03/01/21 06:00 Phosphorus 7.90 mg/dL (2.5-4.5) H 02/21/21 16:35 Magnesium 2.60 mg/dL (1.7-2.3) H 02/21/21 16:35 Ferritin 867.8 ng/mL (30.0-300.0) H 02/26/21 05:48 Total Bilirubin 1.50 mg/dL (0.1-1.2) H 01/26/21 05:47 AST 37 units/L (5-40) 01/26/21 05:47 ALT 29 units/L (7-56) 01/26/21 05:47 Alkaline Phosphatase 70 units/L (35-129) 01/26/21 05:47 Lactate Dehydrogenase 345 units/L (91-180) H 02/19/21 05:45 C-Reactive Protein 5.90 mg/dL (0.00-1.30) H 02/26/21 05:48 Total Protein 7.2 g/dL (6.3-8.2) 01/26/21 05:47 Albumin 2.2 g/dL (3.9-5) L 01/26/21 05:47 Albumin/Globulin Ratio 0.4 % 01/26/21 05:47 Triglycerides 195 mg/dL (2-149) H 02/19/21 05:45 Procalcitonin 18.94 ng/mL (<0.15) 02/16/21 17:09 Arterial Blood Glucose 117 mg/dL (65-95) H 03/01/21 03:29 Arterial Blood Ionized Calcium 4.6 mg/dL (4.6-5.3) 03/01/21 03:29 Urine Color Nehal (Yellow) 01/22/21 22:39 Urine Turbidity Cloudy (Clear) 01/22/21 22:39 Urine pH 5.0 (5.0-7.0) 01/22/21 22:39 Ur Specific [place] 1.017 (1.003-1.030) 01/22/21 22:39 Urine Protein 100 mg/dl mg/dL (Negative) 01/22/21 22:39 Urine Glucose (UA) Neg mg/dL (Negative) 01/22/21 22:39 Urine Ketones Neg mg/dL (Negative) 01/22/21 22:39 Urine Blood Mod (Negative) 01/22/21 22:39 Urine Nitrite Neg (Negative) 01/22/21 22:39 Urine Bilirubin Neg (Negative) 01/22/21 22:39 Urine Urobilinogen 2.0 mg/dL (<2.0) 01/22/21 22:39 Ur Leukocyte Esterase Mod (Negative) 01/22/21 22:39 Urine WBC (Auto) < 1.0 /HPF (0.0-6.0) 01/22/21 22:39 Urine RBC (Auto) < 1.0 /HPF (0.0-6.0) 01/22/21 22:39 U Epithel Cells (Auto) < 1.0 /HPF (0-13.0) 01/22/21 22:39 Urine Osmolality 416 Mosm/kg 01/30/21 12:15 Urine Total Volume 2300 ml 01/30/21 12:00 Urine Creatinine 53.0 mg/dL (0.1-20.0) H 01/30/21 12:00 Ur Creatinine 24 Hour 1.2 (0.8-2.8) 01/30/21 12:00 Urine Sodium 28 mmol/L 01/22/21 22:39 Nasal Screen MRSA (PCR) Negative (Negative) 02/02/21 13:20 Random Vancomycin 13.7 ug/mL (0-40.0) 02/07/21 10:40 Coronavirus (PCR) Positive (Negative) A 02/18/21 10:00 Hepatitis A IgM Ab Non-reactive (NonReactive) 02/03/21 Unknown Hep Bs Antigen Non-reactive (Negative) 02/03/21 Unknown Hep B Core IgM Ab Non-reactive (NonReactive) 02/03/21 Unknown Hepatitis C Antibody Non-reactive (NonReactive) 02/03/21 Unknown Blood Type B POSITIVE 02/17/21 07:45 Antibody Screen Negative 02/17/21 07:45 Crossmatch See Detail 02/17/21 07:45 Black/IV: Voiding Method Incontinent Active Medications - Current Medications Current Medications: Generic Name Dose Route Start Last Admin Trade Name Freq PRN Reason Stop Dose Admin Acetaminophen 650 mg 01/24/21 12:58 02/25/21 13:31 Acetaminophen 325 Mg/10.15 Ml Oral Liqd Unit Dose FEEDTUBE 650 mg Q6H PRN Administration Pain, Mild (1-3) Lipase/Protease/Amylase 1 each 01/26/21 14:25 Lipase 10,500/Protease 25,000/Amylase 43,750 (Units) Dr Cap FEEDTUBE PRN PRN For Clogged Feeding Tube Dextrose 50 ml 01/27/21 07:24 Dextrose 50% In Water (25gm) 50 Ml Syringe IV Q30MIN PRN Hypoglycemia Protocol Fentanyl 50 mcg 01/22/21 22:39 02/25/21 10:25 Fentanyl 100 Mcg/2 Ml Inj IV 50 mcg Q10MIN PRN Administration ANALGESIA Heparin Sodium (Porcine) 2,000 unit 02/11/21 09:38 02/21/21 21:25 Heparin 10,000 Units/10 Ml Vial IV 2,000 unit S[place]IO PRN Administration hemodialysis Heparin Sodium (Porcine) 5,000 unit 02/19/21 14:00 03/01/21 06:01 Heparin 5,000 Unit/1 Ml Vial SUB-Q 5,000 unit Q8HR CECE Administration Fentanyl Citrate 2,000 mcg in 100 mls @ 6.124 mls/hr 01/22/21 23:00 03/01/21 00:28 Fentanyl Drip Premix IV 2 mcg/kg/hr TITR CECE 12.247 mls/hr Administration Protocol 1 MCG/KG/HR Propofol 1,000 mg in 100 mls @ 3.674 mls/hr 01/22/21 23:45 02/21/21 08:30 Diprivan 10 Mg/Ml IV 0 mcg/kg/min TITR CECE 0 mls/hr Titration Protocol 5 MCG/KG/MIN Norepinephrine 4 mg in 250 mls @ 7.5 mls/hr 01/28/21 14:00 02/22/21 18:27 Levophed Drip 4 Mg/Ns 250 Ml IV 0 mcg/min TITR CECE 0 mls/hr Titration Protocol 2 MCG/MIN Dexmedetomidine HCl 1,000 mcg/ 260 mls @ 6.368 mls/hr 01/30/21 20:00 02/27/21 22:28 Sodium Chloride IV 0.1 mcg/kg/hr TITRATE CECE 3.2 mls/hr Administration Protocol 0.2 MCG/KG/HR Sodium Chloride 100 mls @ 999 mls/hr 02/27/21 11:00 Nacl 0.9% IV S[place]IO PRN Hypotension Lansoprazole 30 mg 02/18/21 10:00 02/28/21 09:43 Lansoprazole 30 Mg Solutab FEEDTUBE 30 mg QDAY CECE Administration Senna/Docusate Sodium 1 tab 02/25/21 10:00 02/28/21 21:36 Sennosides/Docusate Sodium 8.6/50 Mg Tab PO 1 tab BID CECE Administration Simple Syrup 15 ml 01/26/21 14:25 02/21/21 21:24 Simple Syrup 15 Ml FEEDTUBE 15 ml PRN PRN Administration Hypoglycemia Simple Syrup 30 ml 01/26/21 14:25 Simple Syrup 15 Ml FEEDTUBE PRN PRN Hypoglycemia Sodium Bicarbonate 325 mg 01/26/21 14:25 Sodium Bicarbonate 325 Mg Tab FEEDTUBE PRN PRN For Clogged Feeding Tube Nutrition/Malnutrition Assess - Dietary Evaluation Nutrition/Malnutrition Findings: Nutrition Notes Start: 01/26/21 13:59 Freq: Status: Active Protocol: Document 02/26/21 12:19 CW (Rec: 02/26/21 12:45 CW [id number]) Nutrition Notes Initial or Follow up Reassessment Current Diagnosis Acute Kidney Injury,Diabetes, Sepsis,Hypertension, Respiratory Failure, Hyperlipidemia Other Pertinent Diagnosis on HD, COVID-19 (+), bilat pneu Current Diet TF - Nepro at 46 ml/hr Labs/Tests BUN 72 Cr 4.5 Pertinent Medications [place] Height 5 ft 8 in Weight 99 kg [place] Body Weight (kg) 70.00 BMI 33.2 Weight change and time frame Some wt change likely r/t to HD. Weight Status Obese Subjective/Other Information TF continue to run at goal and is moderately tolerated. Pt remains on mechanical vent. Burn Absent Trauma Absent GI Symptoms Constipation Difficulty In Swallowing Skin Integrity/Comment pressure ulcer to lips Current % PO Negligible Minimum of two criteria No Fluid Accumulation Moderate to Severe (severe) #2 Nutrition Diagnosis Increased nutrient needs ( specify in comment below) Comments: protein Diagnosis Progress(for reassessment Continues documentation) #1 Nutrition Diagnosis Inadequate oral intake Diagnosis Progress(for reassessment Continues documentation) Is patient on ventilator? Yes Is Patient Ambulatory and/or Out of Bed No REE-([place]-[facility] Jeor-confined to bed) 2122.164 Kcal/Kg value to use for calculation 18 Approximate Energy Requirements Using 1782 kcal/Kg Calculation Used for Recommendations Kcal/kg Additional Notes Pro needs >1.2g/kg adjBW: > 115g/day for HD needs Fluid needs 500+ total output or per MD Nutrition Intervention Change Diet Order: Continue TF Nutrition Support: Nepro at 46 ml/hr with a free water flush of 200 ml q4h. Kcal 1,987 Protein (gm) 89 Fluid (mL) 803 Goal #1 TF tolerance Goal #2 TF to meet at least 75% energy and pro needs Anticipated Discharge Needs: unable to determine at this time Follow-Up By: 03/04/21 Additional Comments F/U for TF tolerance
[2021-03-01] MEDS: LANSOPRAZOLE 30 MG SOLUTAB FEEDTUBE SCH (09:13)
[2021-03-01] MEDS: SENNOSIDES/DOCUSATE SODIUM 8.6/50 MG TAB PO SCH ×2 (09:13→22:13)
--- NOTE | 2021-03-01 11:26 | Progress Note ---
Assessment and Plan Acute Hypoxic respiratory failure COVID-19 PNA Severe sepsis with septic shock Acute kidney injury secondary to ATN Hyperkalemia Hypernatremia DM2 on insulin Anemia Plan: HD tomorrow for clearance and volume removal Initiated on HD on 02/03/21 S/P Right IJ Trialysis dialysis catheter placement by Dr Reddy. will request permcath placement Strict I&O's monitoring Renally dose medications Assess dialysis needs daily Monitor for renal recovery Subjective Date of service: 03/01/21 Principal diagnosis: DEISI Interval history: on the vent, now with penile ulceration Objective - Vital Signs Vital signs: Vital Signs - 12hr 02/28/21 02/28/21 02/28/21 23:30 23:33 23:45 Temperature Pulse Rate 110 H 110 H 110 H Pulse Rate [ From Monitor] Respiratory 24 17 Rate Blood Pressure 108/66 108/66 111/61 O2 Sat by Pulse 94 97 96 Oximetry 03/01/21 03/01/21 03/01/21 00:00 00:15 00:30 Temperature 99.2 F Pulse Rate 111 H 111 H 111 H Pulse Rate [ 111 H From Monitor] Respiratory 18 19 18 Rate Blood Pressure 111/62 115/57 111/53 O2 Sat by Pulse 95 94 95 Oximetry 03/01/21 03/01/21 03/01/21 00:45 01:00 01:15 Temperature Pulse Rate 110 H 110 H 110 H Pulse Rate [ From Monitor] Respiratory 18 17 18 Rate Blood Pressure 118/54 117/56 117/54 O2 Sat by Pulse 95 96 95 Oximetry 03/01/21 03/01/21 03/01/21 01:30 01:45 01:57 Temperature 99.2 F Pulse Rate 109 H 109 H Pulse Rate [ From Monitor] Respiratory 18 18 Rate Blood Pressure 112/55 121/61 O2 Sat by Pulse 100 Oximetry 03/01/21 03/01/21 03/01/21 02:00 02:15 02:30 Temperature Pulse Rate 109 H 109 H 108 H Pulse Rate [ From Monitor] Respiratory 17 17 22 Rate Blood Pressure 122/61 113/59 116/56 O2 Sat by Pulse 99 Oximetry 03/01/21 03/01/21 03/01/21 02:45 03:00 03:15 Temperature Pulse Rate 108 H 108 H 107 H Pulse Rate [ From Monitor] Respiratory 16 17 34 H Rate Blood Pressure 114/60 115/60 116/57 O2 Sat by Pulse 96 96 Oximetry 03/01/21 03/01/21 03/01/21 03:30 03:45 03:50 Temperature Pulse Rate 107 H 107 H 107 H Pulse Rate [ From Monitor] Respiratory 17 21 Rate Blood Pressure 114/60 114/58 114/54 O2 Sat by Pulse 96 95 97 Oximetry 03/01/21 03/01/21 03/01/21 04:00 04:15 04:30 Temperature Pulse Rate 109 H 108 H 108 H Pulse Rate [ 109 H From Monitor] Respiratory 26 H 18 19 Rate Blood Pressure 144/75 126/66 120/62 O2 Sat by Pulse 96 96 100 Oximetry 03/01/21 03/01/21 03/01/21 04:45 05:00 05:15 Temperature Pulse Rate 109 H 111 H 109 H Pulse Rate [ From Monitor] Respiratory 20 20 34 H Rate Blood Pressure 122/65 124/61 121/62 O2 Sat by Pulse 95 96 96 Oximetry 03/01/21 03/01/21 03/01/21 05:30 05:45 06:00 Temperature Pulse Rate 111 H 110 H 108 H Pulse Rate [ From Monitor] Respiratory 10 L 17 34 H Rate Blood Pressure 112/70 104/52 108/57 O2 Sat by Pulse 88 100 100 Oximetry 03/01/21 03/01/21 03/01/21 06:15 06:30 06:45 Temperature Pulse Rate 107 H 106 H 105 H Pulse Rate [ From Monitor] Respiratory 34 H 14 34 H Rate Blood Pressure 110/60 109/58 115/61 O2 Sat by Pulse 97 98 98 Oximetry 03/01/21 03/01/21 03/01/21 07:00 07:15 07:30 Temperature Pulse Rate 104 H 104 H 103 H Pulse Rate [ From Monitor] Respiratory 33 H 34 H 34 H Rate Blood Pressure 121/64 126/67 118/65 O2 Sat by Pulse 98 Oximetry 03/01/21 03/01/21 03/01/21 07:45 08:00 08:15 Temperature Pulse Rate 103 H 102 H 103 H Pulse Rate [ 104 H From Monitor] Respiratory 34 H 21 34 H Rate Blood Pressure 114/62 118/62 116/64 O2 Sat by Pulse 99 Oximetry 03/01/21 03/01/21 03/01/21 08:30 08:32 08:45 Temperature Pulse Rate 102 H 103 H 105 H Pulse Rate [ From Monitor] Respiratory 34 H 29 H Rate Blood Pressure 109/60 109/60 116/64 O2 Sat by Pulse 98 91 Oximetry 03/01/21 03/01/21 03/01/21 09:00 09:16 09:30 Temperature Pulse Rate 105 H 105 H 104 H Pulse Rate [ From Monitor] Respiratory 24 14 14 Rate Blood Pressure 114/63 114/63 114/63 O2 Sat by Pulse 93 94 95 Oximetry 03/01/21 03/01/21 09:46 10:00 Temperature Pulse Rate 104 H 104 H Pulse Rate [ From Monitor] Respiratory 14 22 Rate Blood Pressure 114/63 112/66 O2 Sat by Pulse 96 96 Oximetry - General Appearance General appearance: intubated EENT: ATNC, PERRL Neck: no JVD Cardiology: tachycardia Musculoskeletal: deferred - Lab 02/26/21 05:48 03/01/21 06:00 Most recent lab results ABG pH 7.328 (7.320-7.450) 03/01/21 03:29 ABG pCO2 62.7 mm Hg 02/23/21 04:00 ABG pO2 119.4 mm Hg (80.0-90.0) H 02/23/21 04:00 ABG HCO3 26.6 mmol/L (20.0-26.0) H 02/23/21 04:00 ABG O2 Saturation 98.5 (0-100) 03/01/21 03:29 Calcium 8.0 mg/dL (8.4-10.2) L 03/01/21 06:00 Phosphorus 7.90 mg/dL (2.5-4.5) H 02/21/21 16:35 Magnesium 2.60 mg/dL (1.7-2.3) H 02/21/21 16:35 Urine Creatinine 53.0 mg/dL (0.1-20.0) H 01/30/21 12:00 Urine Sodium 28 mmol/L 01/22/21 22:39 Medications & Allergies - Medications Allergies/Adverse Reactions: Allergies No Known Allergies Allergy (Unverified 03/12/20 13:41) Home Medications: Home Medications Medication Instructions Recorded Confirmed Last Taken Type Insulin NPH/Regular [Novolin 70/30] 18 unit SUB-Q TIDAC #1 vial 03/12/20 Unknown Rx Syringe-Needle,Insulin,0.5 ml 1 box TID #1 box 03/12/20 Unknown Rx [Insulin Syringe/Needle 0.5 ML] Active Medications: Generic Name Dose Route Start Last Admin Trade Name Freq PRN Reason Stop Dose Admin Acetaminophen 650 mg 01/24/21 12:58 02/25/21 13:31 Acetaminophen 325 Mg/10.15 Ml Oral Liqd Unit Dose FEEDTUBE 650 mg Q6H PRN Administration Pain, Mild (1-3) Lipase/Protease/Amylase 1 each 01/26/21 14:25 Lipase 10,500/Protease 25,000/Amylase 43,750 (Units) Dr Cap FEEDTUBE PRN PRN For Clogged Feeding Tube Dextrose 50 ml 01/27/21 07:24 Dextrose 50% In Water (25gm) 50 Ml Syringe IV Q30MIN PRN Hypoglycemia Protocol Fentanyl 50 mcg 01/22/21 22:39 02/25/21 10:25 Fentanyl 100 Mcg/2 Ml Inj IV 50 mcg Q10MIN PRN Administration ANALGESIA Heparin Sodium (Porcine) 2,000 unit 02/11/21 09:38 02/21/21 21:25 Heparin 10,000 Units/10 Ml Vial IV 2,000 unit [place] PRN Administration hemodialysis Heparin Sodium (Porcine) 5,000 unit 02/19/21 14:00 03/01/21 06:01 Heparin 5,000 Unit/1 Ml Vial SUB-Q 5,000 unit Q8HR CECE Administration Fentanyl Citrate 2,000 mcg in 100 mls @ 6.124 mls/hr 01/22/21 23:00 03/01/21 09:12 Fentanyl Drip Premix IV 3 mcg/kg/hr TITR CECE 18.371 mls/hr Administration Protocol 1 MCG/KG/HR Propofol 1,000 mg in 100 mls @ 3.674 mls/hr 01/22/21 23:45 02/21/21 08:30 Diprivan 10 Mg/Ml IV 0 mcg/kg/min TITR CECE 0 mls/hr Titration Protocol 5 MCG/KG/MIN Norepinephrine 4 mg in 250 mls @ 7.5 mls/hr 01/28/21 14:00 02/22/21 18:27 Levophed Drip 4 Mg/Ns 250 Ml IV 0 mcg/min TITR CECE 0 mls/hr Titration Protocol 2 MCG/MIN Dexmedetomidine HCl 1,000 mcg/ 260 mls @ 6.368 mls/hr 01/30/21 20:00 02/27/21 22:28 Sodium Chloride IV 0.1 mcg/kg/hr TITRATE CECE 3.2 mls/hr Administration Protocol 0.2 MCG/KG/HR Sodium Chloride 100 mls @ 999 mls/hr 02/27/21 11:00 Nacl 0.9% IV [place] PRN Hypotension Lansoprazole 30 mg 02/18/21 10:00 03/01/21 09:13 Lansoprazole 30 Mg Solutab FEEDTUBE 30 mg QDAY CECE Administration Senna/Docusate Sodium 1 tab 02/25/21 10:00 03/01/21 09:13 Sennosides/Docusate Sodium 8.6/50 Mg Tab PO 1 tab BID CECE Administration Simple Syrup 15 ml 01/26/21 14:25 02/21/21 21:24 Simple Syrup 15 Ml FEEDTUBE 15 ml PRN PRN Administration Hypoglycemia Simple Syrup 30 ml 01/26/21 14:25 Simple Syrup 15 Ml FEEDTUBE PRN PRN Hypoglycemia Sodium Bicarbonate 325 mg 01/26/21 14:25 Sodium Bicarbonate 325 Mg Tab FEEDTUBE PRN PRN For Clogged Feeding Tube
--- NOTE | 2021-03-01 15:46 | Progress Note ---
Assessment and Plan Imp: 1. Covid-19 2. Viral pneumonia 3. ARDS 4. Acute respiratory failure, hypoxia 5. Morbid obesity 6. DEISI 7. Anasarca Rec: 1. Cont. current management; wean FiO2 then PEEP; will need trach once ventilator settings allow 2. TFs, GI PPx, SCDs, SubQ heparin 3. HD per renal 4. F/u Neurology recs 5. Transfuse if H/H less than 7.0/21.0 6. Cont. on ACPC; okay with most recent ABG (permissive hypercapnea) 7. Prognosis poor; CCt 31 minutes Subjective Date of service: 03/01/21 Principal diagnosis: DEISI Interval history: Orally intubated arterial blood gases have shown significant improvement today. Remain on pressure control ventilation with PEEP of 10 at 70% FiO2 Objective Vital Signs - 12hr 03/01/21 03/01/21 03/01/21 03:50 04:00 04:15 Pulse Rate 107 H 109 H 108 H Pulse Rate [ 109 H From Monitor] Respiratory 26 H 18 Rate Blood Pressure 114/54 144/75 126/66 O2 Sat by Pulse 97 96 96 Oximetry 03/01/21 03/01/21 03/01/21 04:30 04:45 05:00 Pulse Rate 108 H 109 H 111 H Pulse Rate [ From Monitor] Respiratory 19 20 20 Rate Blood Pressure 120/62 122/65 124/61 O2 Sat by Pulse 100 95 96 Oximetry 03/01/21 03/01/21 03/01/21 05:15 05:30 05:45 Pulse Rate 109 H 111 H 110 H Pulse Rate [ From Monitor] Respiratory 34 H 10 L 17 Rate Blood Pressure 121/62 112/70 104/52 O2 Sat by Pulse 96 88 100 Oximetry 03/01/21 03/01/21 03/01/21 06:00 06:15 06:30 Pulse Rate 108 H 107 H 106 H Pulse Rate [ From Monitor] Respiratory 34 H 34 H 14 Rate Blood Pressure 108/57 110/60 109/58 O2 Sat by Pulse 100 97 98 Oximetry 03/01/21 03/01/21 03/01/21 06:45 07:00 07:15 Pulse Rate 105 H 104 H 104 H Pulse Rate [ From Monitor] Respiratory 34 H 33 H 34 H Rate Blood Pressure 115/61 121/64 126/67 O2 Sat by Pulse 98 98 Oximetry 03/01/21 03/01/21 03/01/21 07:30 07:45 08:00 Pulse Rate 103 H 103 H 104 H Pulse Rate [ 104 H From Monitor] Respiratory 34 H 34 H 21 Rate Blood Pressure 118/65 114/62 118/62 O2 Sat by Pulse 99 Oximetry 03/01/21 03/01/21 03/01/21 08:15 08:30 08:32 Pulse Rate 103 H 102 H 103 H Pulse Rate [ From Monitor] Respiratory 34 H 34 H Rate Blood Pressure 116/64 109/60 109/60 O2 Sat by Pulse 98 Oximetry 03/01/21 03/01/21 03/01/21 08:45 09:00 09:16 Pulse Rate 105 H 105 H 105 H Pulse Rate [ From Monitor] Respiratory 29 H 24 14 Rate Blood Pressure 116/64 114/63 114/63 O2 Sat by Pulse 91 93 94 Oximetry 03/01/21 03/01/21 03/01/21 09:30 09:46 10:00 Pulse Rate 104 H 104 H 104 H Pulse Rate [ From Monitor] Respiratory 14 14 22 Rate Blood Pressure 114/63 114/63 112/66 O2 Sat by Pulse 95 96 96 Oximetry 03/01/21 03/01/21 03/01/21 10:16 10:30 10:46 Pulse Rate 104 H 104 H 103 H Pulse Rate [ From Monitor] Respiratory 34 H 24 34 H Rate Blood Pressure 112/66 112/66 112/66 O2 Sat by Pulse 97 97 98 Oximetry 03/01/21 03/01/21 03/01/21 11:00 11:16 11:30 Pulse Rate 105 H 105 H 105 H Pulse Rate [ From Monitor] Respiratory 25 H 19 12 Rate Blood Pressure 109/63 109/63 109/63 O2 Sat by Pulse 97 97 Oximetry 03/01/21 03/01/21 03/01/21 11:46 11:54 12:00 Pulse Rate 104 H 104 H 104 H Pulse Rate [ 105 H From Monitor] Respiratory 32 H 34 H Rate Blood Pressure 109/63 109/63 100/57 O2 Sat by Pulse 97 97 98 Oximetry 03/01/21 03/01/21 03/01/21 12:16 12:30 12:46 Pulse Rate 104 H 105 H Pulse Rate [ From Monitor] Respiratory 34 H 34 H Rate Blood Pressure 109/63 109/63 109/63 O2 Sat by Pulse 98 98 98 Oximetry 03/01/21 03/01/21 03/01/21 13:00 13:16 13:30 Pulse Rate 104 H 104 H 103 H Pulse Rate [ From Monitor] Respiratory 34 H 34 H 34 H Rate Blood Pressure 102/53 102/53 102/53 O2 Sat by Pulse 95 97 97 Oximetry 03/01/21 03/01/21 03/01/21 13:46 14:00 14:16 Pulse Rate 102 H 103 H 103 H Pulse Rate [ From Monitor] Respiratory 34 H 34 H 34 H Rate Blood Pressure 102/53 99/54 99/54 O2 Sat by Pulse 97 96 97 Oximetry 03/01/21 03/01/21 03/01/21 14:30 14:46 15:00 Pulse Rate 102 H 104 H 102 H Pulse Rate [ From Monitor] Respiratory 35 H 34 H 34 H Rate Blood Pressure 99/54 99/54 102/55 O2 Sat by Pulse 98 98 95 Oximetry 03/01/21 03/01/21 15:16 15:30 Pulse Rate 99 H 97 H Pulse Rate [ From Monitor] Respiratory 34 H 34 H Rate Blood Pressure 102/55 102/55 O2 Sat by Pulse 98 98 Oximetry Constitutional: other (sedated) Eyes: non-icteric ENT: other (orally intubated, critically ill) Neck: supple Effort: mildly labored (tachypneic) Ascultation: Bilateral: clear, other (coarse BS bilaterally) Percussion: Bilateral: not dull Cardiovascular: regular rate and rhythm (no mrg) Gastrointestinal: normoactive bowel sounds Integumentary: normal Extremities: no cyanosis, no edema, pink and warm Neurologic: unable to assess Psychiatric: other (unable to assess) CBC and BMP: 02/26/21 05:48 03/01/21 06:00 ABG, PT/INR, D-dimer: ABG ABG pH 7.328 (7.320-7.450) 03/01/21 03:29 POC ABG pCO2 52.3 mmHg (32.0-48.0) H 03/01/21 03:29 ABG pCO2 62.7 mm Hg 02/23/21 04:00 POC ABG pO2 115.1 mmHg (83-108) H 03/01/21 03:29 ABG pO2 119.4 mm Hg (80.0-90.0) H 02/23/21 04:00 POC ABG HCO3 26.8 03/01/21 03:29 ABG O2 Saturation 98.5 (0-100) 03/01/21 03:29 PT/INR, D-dimer PT 14.9 Sec. (12.2-14.9) 02/11/21 08:27 INR 1.17 (0.87-1.13) H 02/11/21 08:27 D-Dimer 6536.84 ng/mlDDU (0-234) H 02/25/21 09:03 Abnormal lab findings: Abnormal Labs 01/22/21 01/22/21 01/22/21 22:39 22:57 22:57 WBC RBC Hgb Hct MCV MCH MCHC RDW Plt Count Lymph % (Auto) 6.6 L Lymph # (Auto) 0.5 L Seg Neutrophils % 87.6 H Seg Neuts % (Manual) Lymphocytes % (Manual) Monocytes % (Manual) Nucleated RBC % Seg Neutrophils # Seg Neutrophils # Man Lymphocytes # (Manual) Monocytes # (Manual) Eosinophils # (Manual) INR D-Dimer ABG pH POC ABG pCO2 POC ABG pO2 ABG pO2 ABG HCO3 ABG O2 Saturation ABG Base Excess ABG Hemoglobin ABG Oxyhemoglobin ABG Sodium ABG Potassium ABG Chloride ABG Glucose Oxyhemoglobin Carboxyhemoglobin Sodium 129 L Potassium 3.4 L Chloride 90.4 L Carbon Dioxide BUN 34 H Creatinine 1.5 H Glucose 146 H POC Glucose Hemoglobin A1c Lactic Acid Calcium 7.8 L Phosphorus Magnesium Ferritin Total Bilirubin AST 75 H ALT 57 H Lactate Dehydrogenase C-Reactive Protein Albumin 2.9 L Triglycerides Arterial Blood Glucose Arterial Blood Ionized Calcium Urine Creatinine 301.2 H Coronavirus (PCR) Crossmatch 01/22/21 01/22/21 01/22/21 22:57 22:57 22:57 WBC RBC Hgb Hct MCV MCH MCHC RDW Plt Count Lymph % (Auto) Lymph # (Auto) Seg Neutrophils % Seg Neuts % (Manual) Lymphocytes % (Manual) Monocytes % (Manual) Nucleated RBC % Seg Neutrophils # Seg Neutrophils # Man Lymphocytes # (Manual) Monocytes # (Manual) Eosinophils # (Manual) INR D-Dimer 1173.89 H ABG pH POC ABG pCO2 POC ABG pO2 ABG pO2 ABG HCO3 ABG O2 Saturation ABG Base Excess ABG Hemoglobin ABG Oxyhemoglobin ABG Sodium ABG Potassium ABG Chloride ABG Glucose Oxyhemoglobin Carboxyhemoglobin Sodium Potassium Chloride Carbon Dioxide BUN Creatinine Glucose 149 H POC Glucose Hemoglobin A1c Lactic Acid 2.10 H* Calcium Phosphorus Magnesium Ferritin Total Bilirubin AST ALT Lactate Dehydrogenase 685 H C-Reactive Protein 30.40 H Albumin Triglycerides Arterial Blood Glucose Arterial Blood Ionized Calcium Urine Creatinine Coronavirus (PCR) Crossmatch 01/22/21 01/23/21 01/23/21 22:57 08:41 10:01 WBC RBC Hgb Hct MCV MCH MCHC RDW Plt Count Lymph % (Auto) Lymph # (Auto) Seg Neutrophils % Seg Neuts % (Manual) Lymphocytes % (Manual) Monocytes % (Manual) Nucleated RBC % Seg Neutrophils # Seg Neutrophils # Man Lymphocytes # (Manual) Monocytes # (Manual) Eosinophils # (Manual) INR D-Dimer ABG pH POC ABG pCO2 POC ABG pO2 ABG pO2 ABG HCO3 ABG O2 Saturation ABG Base Excess ABG Hemoglobin ABG Oxyhemoglobin ABG Sodium ABG Potassium ABG Chloride ABG Glucose Oxyhemoglobin Carboxyhemoglobin Sodium 131 L Potassium Chloride 88.7 L Carbon Dioxide 18 L BUN 36 H Creatinine 1.6 H Glucose 147 H POC Glucose Hemoglobin A1c Lactic Acid Calcium 7.5 L Phosphorus Magnesium Ferritin 1207.0 H Total Bilirubin AST ALT Lactate Dehydrogenase C-Reactive Protein Albumin Triglycerides Arterial Blood Glucose Arterial Blood Ionized Calcium Urine Creatinine Coronavirus (PCR) Positive A Crossmatch 01/23/21 01/23/21 01/24/21 20:49 Unknown 00:10 WBC RBC Hgb Hct MCV MCH MCHC RDW Plt Count Lymph % (Auto) Lymph # (Auto) Seg Neutrophils % Seg Neuts % (Manual) Lymphocytes % (Manual) Monocytes % (Manual) Nucleated RBC % Seg Neutrophils # Seg Neutrophils # Man Lymphocytes # (Manual) Monocytes # (Manual) Eosinophils # (Manual) INR D-Dimer ABG pH POC ABG pCO2 POC ABG pO2 ABG pO2 165.4 H ABG HCO3 ABG O2 Saturation ABG Base Excess -2.5 L ABG Hemoglobin ABG Oxyhemoglobin ABG Sodium ABG Potassium ABG Chloride ABG Glucose Oxyhemoglobin Carboxyhemoglobin Sodium 130 L Potassium Chloride 91.0 L Carbon Dioxide 20 L BUN 52 H Creatinine 3.8 H D Glucose 150 H POC Glucose 125 H Hemoglobin A1c Lactic Acid Calcium 8.0 L Phosphorus Magnesium Ferritin Total Bilirubin AST 42 H ALT Lactate Dehydrogenase C-Reactive Protein Albumin 2.4 L Triglycerides Arterial Blood Glucose Arterial Blood Ionized Calcium Urine Creatinine Coronavirus (PCR) Crossmatch 01/24/21 01/24/21 01/24/21 05:05 05:05 05:05 WBC 14.0 H RBC Hgb Hct MCV 95 H MCH 33 H MCHC RDW Plt Count Lymph % (Auto) Lymph # (Auto) Seg Neutrophils % Seg Neuts % (Manual) 91.0 H Lymphocytes % (Manual) 4.0 L Monocytes % (Manual) Nucleated RBC % Seg Neutrophils # Seg Neutrophils # Man 12.7 H Lymphocytes # (Manual) 0.6 L Monocytes # (Manual) Eosinophils # (Manual) INR D-Dimer 6159.48 H ABG pH POC ABG pCO2 POC ABG pO2 ABG pO2 ABG HCO3 ABG O2 Saturation ABG Base Excess ABG Hemoglobin ABG Oxyhemoglobin ABG Sodium ABG Potassium ABG Chloride ABG Glucose Oxyhemoglobin Carboxyhemoglobin Sodium Potassium Chloride Carbon Dioxide BUN Creatinine Glucose POC Glucose Hemoglobin A1c Lactic Acid Calcium Phosphorus Magnesium Ferritin 1178.0 H Total Bilirubin AST ALT Lactate Dehydrogenase C-Reactive Protein Albumin Triglycerides Arterial Blood Glucose Arterial Blood Ionized Calcium Urine Creatinine Coronavirus (PCR) Crossmatch 01/24/21 01/24/21 01/24/21 05:05 05:05 05:05 WBC RBC Hgb Hct MCV MCH MCHC RDW Plt Count Lymph % (Auto) Lymph # (Auto) Seg Neutrophils % Seg Neuts % (Manual) Lymphocytes % (Manual) Monocytes % (Manual) Nucleated RBC % Seg Neutrophils # Seg Neutrophils # Man Lymphocytes # (Manual) Monocytes # (Manual) Eosinophils # (Manual) INR D-Dimer ABG pH POC ABG pCO2 POC ABG pO2 ABG pO2 ABG HCO3 ABG O2 Saturation ABG Base Excess ABG Hemoglobin ABG Oxyhemoglobin ABG Sodium ABG Potassium ABG Chloride ABG Glucose Oxyhemoglobin Carboxyhemoglobin Sodium 132 L Potassium Chloride 93.1 L Carbon Dioxide 21 L BUN 57 H Creatinine 3.7 H Glucose 133 H POC Glucose Hemoglobin A1c Lactic Acid 2.20 H* Calcium 7.7 L Phosphorus Magnesium Ferritin Total Bilirubin AST ALT Lactate Dehydrogenase 658 H C-Reactive Protein 33.20 H Albumin 2.4 L Triglycerides Arterial Blood Glucose Arterial Blood Ionized Calcium Urine Creatinine Coronavirus (PCR) Crossmatch 01/24/21 01/24/21 01/24/21 05:34 06:00 17:35 WBC RBC Hgb Hct MCV MCH MCHC RDW Plt Count Lymph % (Auto) Lymph # (Auto) Seg Neutrophils % Seg Neuts % (Manual) Lymphocytes % (Manual) Monocytes % (Manual) Nucleated RBC % Seg Neutrophils # Seg Neutrophils # Man Lymphocytes # (Manual) Monocytes # (Manual) Eosinophils # (Manual) INR D-Dimer ABG pH POC ABG pCO2 POC ABG pO2 ABG pO2 ABG HCO3 ABG O2 Saturation ABG Base Excess ABG Hemoglobin ABG Oxyhemoglobin ABG Sodium ABG Potassium ABG Chloride ABG Glucose Oxyhemoglobin Carboxyhemoglobin Sodium Potassium Chloride Carbon Dioxide BUN Creatinine Glucose POC Glucose 136 H 137 H Hemoglobin A1c Lactic Acid Calcium Phosphorus Magnesium 2.80 H Ferritin Total Bilirubin AST ALT Lactate Dehydrogenase C-Reactive Protein Albumin Triglycerides Arterial Blood Glucose Arterial Blood Ionized Calcium Urine Creatinine Coronavirus (PCR) Crossmatch 01/25/21 01/25/21 01/25/21 04:15 05:40 05:40 WBC RBC Hgb Hct MCV 95 H MCH 33 H MCHC 35 H RDW Plt Count Lymph % (Auto) Lymph # (Auto) Seg Neutrophils % Seg Neuts % (Manual) 95.0 H Lymphocytes % (Manual) 3.0 L Monocytes % (Manual) Nucleated RBC % Seg Neutrophils # Seg Neutrophils # Man 7.8 H Lymphocytes # (Manual) 0.2 L Monocytes # (Manual) Eosinophils # (Manual) INR D-Dimer ABG pH POC ABG pCO2 POC ABG pO2 63.2 L ABG pO2 ABG HCO3 ABG O2 Saturation ABG Base Excess ABG Hemoglobin ABG Oxyhemoglobin 89.6 L ABG Sodium ABG Potassium ABG Chloride ABG Glucose 165 H Oxyhemoglobin Carboxyhemoglobin 0.3 L Sodium Potassium Chloride Carbon Dioxide BUN 67 H Creatinine 3.4 H Glucose 153 H POC Glucose Hemoglobin A1c Lactic Acid Calcium 7.5 L Phosphorus Magnesium Ferritin Total Bilirubin 1.40 H AST 62 H ALT Lactate Dehydrogenase C-Reactive Protein Albumin 2.6 L Triglycerides Arterial Blood Glucose 165 H Arterial Blood Ionized Calcium 4.3 L Urine Creatinine Coronavirus (PCR) Crossmatch 01/25/21 01/25/21 01/25/21 05:59 12:00 17:17 WBC RBC Hgb Hct MCV MCH MCHC RDW Plt Count Lymph % (Auto) Lymph # (Auto) Seg Neutrophils % Seg Neuts % (Manual) Lymphocytes % (Manual) Monocytes % (Manual) Nucleated RBC % Seg Neutrophils # Seg Neutrophils # Man Lymphocytes # (Manual) Monocytes # (Manual) Eosinophils # (Manual) INR D-Dimer ABG pH POC ABG pCO2 POC ABG pO2 ABG pO2 ABG HCO3 ABG O2 Saturation ABG Base Excess ABG Hemoglobin ABG Oxyhemoglobin ABG Sodium ABG Potassium ABG Chloride ABG Glucose Oxyhemoglobin Carboxyhemoglobin Sodium Potassium Chloride Carbon Dioxide BUN Creatinine Glucose POC Glucose 140 H 143 H 149 H Hemoglobin A1c Lactic Acid Calcium Phosphorus Magnesium Ferritin Total Bilirubin AST ALT Lactate Dehydrogenase C-Reactive Protein Albumin Triglycerides Arterial Blood Glucose Arterial Blood Ionized Calcium Urine Creatinine Coronavirus (PCR) Crossmatch 01/25/21 01/26/21 01/26/21 23:41 03:43 05:46 WBC RBC Hgb Hct MCV MCH MCHC RDW Plt Count Lymph % (Auto) Lymph # (Auto) Seg Neutrophils % Seg Neuts % (Manual) Lymphocytes % (Manual) Monocytes % (Manual) Nucleated RBC % Seg Neutrophils # Seg Neutrophils # Man Lymphocytes # (Manual) Monocytes # (Manual) Eosinophils # (Manual) INR D-Dimer ABG pH POC ABG pCO2 POC ABG pO2 70.0 L ABG pO2 ABG HCO3 ABG O2 Saturation ABG Base Excess ABG Hemoglobin ABG Oxyhemoglobin 91.9 L ABG Sodium ABG Potassium ABG Chloride 109.0 H ABG Glucose 165 H Oxyhemoglobin Carboxyhemoglobin Sodium Potassium Chloride Carbon Dioxide BUN Creatinine Glucose POC Glucose 132 H 161 H Hemoglobin A1c Lactic Acid Calcium Phosphorus Magnesium Ferritin Total Bilirubin AST ALT Lactate Dehydrogenase C-Reactive Protein Albumin Triglycerides Arterial Blood Glucose 165 H Arterial Blood Ionized Calcium 4.5 L Urine Creatinine Coronavirus (PCR) Crossmatch 01/26/21 01/26/21 01/26/21 05:47 05:47 05:47 WBC RBC Hgb Hct 35.3 L MCV 96 H MCH 33 H MCHC RDW Plt Count Lymph % (Auto) Lymph # (Auto) Seg Neutrophils % Seg Neuts % (Manual) 96.0 H Lymphocytes % (Manual) 2.0 L Monocytes % (Manual) Nucleated RBC % Seg Neutrophils # Seg Neutrophils # Man Lymphocytes # (Manual) 0.1 L Monocytes # (Manual) Eosinophils # (Manual) INR D-Dimer > 23613 H ABG pH POC ABG pCO2 POC ABG pO2 ABG pO2 ABG HCO3 ABG O2 Saturation ABG Base Excess ABG Hemoglobin ABG Oxyhemoglobin ABG Sodium ABG Potassium ABG Chloride ABG Glucose Oxyhemoglobin Carboxyhemoglobin Sodium Potassium Chloride Carbon Dioxide BUN 57 H Creatinine 2.2 H Glucose 185 H POC Glucose Hemoglobin A1c Lactic Acid Calcium 8.1 L Phosphorus Magnesium Ferritin Total Bilirubin AST ALT Lactate Dehydrogenase C-Reactive Protein Albumin Triglycerides Arterial Blood Glucose Arterial Blood Ionized Calcium Urine Creatinine Coronavirus (PCR) Crossmatch 01/26/21 01/26/21 01/26/21 05:47 05:47 05:47 WBC RBC Hgb Hct MCV MCH MCHC RDW Plt Count Lymph % (Auto) Lymph # (Auto) Seg Neutrophils % Seg Neuts % (Manual) Lymphocytes % (Manual) Monocytes % (Manual) Nucleated RBC % Seg Neutrophils # Seg Neutrophils # Man Lymphocytes # (Manual) Monocytes # (Manual) Eosinophils # (Manual) INR D-Dimer ABG pH POC ABG pCO2 POC ABG pO2 ABG pO2 ABG HCO3 ABG O2 Saturation ABG Base Excess ABG Hemoglobin ABG Oxyhemoglobin ABG Sodium ABG Potassium ABG Chloride ABG Glucose Oxyhemoglobin Carboxyhemoglobin Sodium Potassium Chloride 107.1 H Carbon Dioxide BUN 56 H Creatinine 2.2 H Glucose 188 H POC Glucose Hemoglobin A1c Lactic Acid Calcium 8.0 L Phosphorus Magnesium Ferritin 1178.0 H Total Bilirubin 1.50 H AST ALT Lactate Dehydrogenase 588 H C-Reactive Protein 40.10 H Albumin 2.2 L Triglycerides Arterial Blood Glucose Arterial Blood Ionized Calcium Urine Creatinine Coronavirus (PCR) Crossmatch 01/26/21 01/26/21 01/26/21 11:34 18:17 23:20 WBC RBC Hgb Hct MCV MCH MCHC RDW Plt Count Lymph % (Auto) Lymph # (Auto) Seg Neutrophils % Seg Neuts % (Manual) Lymphocytes % (Manual) Monocytes % (Manual) Nucleated RBC % Seg Neutrophils # Seg Neutrophils # Man Lymphocytes # (Manual) Monocytes # (Manual) Eosinophils # (Manual) INR D-Dimer ABG pH POC ABG pCO2 POC ABG pO2 ABG pO2 ABG HCO3 ABG O2 Saturation ABG Base Excess ABG Hemoglobin ABG Oxyhemoglobin ABG Sodium ABG Potassium ABG Chloride ABG Glucose Oxyhemoglobin Carboxyhemoglobin Sodium Potassium Chloride Carbon Dioxide BUN Creatinine Glucose POC Glucose 129 H 205 H 155 H Hemoglobin A1c Lactic Acid Calcium Phosphorus Magnesium Ferritin Total Bilirubin AST ALT Lactate Dehydrogenase C-Reactive Protein Albumin Triglycerides Arterial Blood Glucose Arterial Blood Ionized Calcium Urine Creatinine Coronavirus (PCR) Crossmatch 01/27/21 01/27/21 01/27/21 02:45 05:29 05:29 WBC RBC 3.58 L Hgb 11.7 L Hct 34.9 L MCV 97 H MCH 33 H MCHC RDW Plt Count Lymph % (Auto) Lymph # (Auto) Seg Neutrophils % Seg Neuts % (Manual) 88.0 H Lymphocytes % (Manual) 7.0 L Monocytes % (Manual) Nucleated RBC % Seg Neutrophils # Seg Neutrophils # Man Lymphocytes # (Manual) 0.5 L Monocytes # (Manual) Eosinophils # (Manual) INR D-Dimer ABG pH 7.319 L POC ABG pCO2 50.7 H POC ABG pO2 63.0 L ABG pO2 ABG HCO3 ABG O2 Saturation ABG Base Excess ABG Hemoglobin ABG Oxyhemoglobin ABG Sodium 145.2 H ABG Potassium 5.1 H ABG Chloride 114.0 H ABG Glucose 178 H Oxyhemoglobin Carboxyhemoglobin Sodium Potassium Chloride Carbon Dioxide BUN Creatinine Glucose POC Glucose Hemoglobin A1c Lactic Acid Calcium Phosphorus Magnesium 4.00 H Ferritin Total Bilirubin AST ALT Lactate Dehydrogenase C-Reactive Protein Albumin Triglycerides Arterial Blood Glucose 178 H Arterial Blood Ionized Calcium Urine Creatinine Coronavirus (PCR) Crossmatch 01/27/21 01/27/21 01/27/21 05:29 05:29 05:31 WBC RBC Hgb Hct MCV MCH MCHC RDW Plt Count Lymph % (Auto) Lymph # (Auto) Seg Neutrophils % Seg Neuts % (Manual) Lymphocytes % (Manual) Monocytes % (Manual) Nucleated RBC % Seg Neutrophils # Seg Neutrophils # Man Lymphocytes # (Manual) Monocytes # (Manual) Eosinophils # (Manual) INR D-Dimer ABG pH POC ABG pCO2 POC ABG pO2 ABG pO2 ABG HCO3 ABG O2 Saturation ABG Base Excess ABG Hemoglobin ABG Oxyhemoglobin ABG Sodium ABG Potassium ABG Chloride ABG Glucose Oxyhemoglobin Carboxyhemoglobin Sodium Potassium 5.2 H Chloride 109.6 H Carbon Dioxide BUN 67 H Creatinine 2.8 H Glucose 195 H POC Glucose 176 H Hemoglobin A1c Lactic Acid Calcium 7.9 L Phosphorus Magnesium Ferritin Total Bilirubin AST ALT Lactate Dehydrogenase C-Reactive Protein Albumin Triglycerides 160 H Arterial Blood Glucose Arterial Blood Ionized Calcium Urine Creatinine Coronavirus (PCR) Crossmatch 01/27/21 01/27/21 01/27/21 11:27 18:08 23:30 WBC RBC Hgb Hct MCV MCH MCHC RDW Plt Count Lymph % (Auto) Lymph # (Auto) Seg Neutrophils % Seg Neuts % (Manual) Lymphocytes % (Manual) Monocytes % (Manual) Nucleated RBC % Seg Neutrophils # Seg Neutrophils # Man Lymphocytes # (Manual) Monocytes # (Manual) Eosinophils # (Manual) INR D-Dimer ABG pH POC ABG pCO2 POC ABG pO2 ABG pO2 ABG HCO3 ABG O2 Saturation ABG Base Excess ABG Hemoglobin ABG Oxyhemoglobin ABG Sodium ABG Potassium ABG Chloride ABG Glucose Oxyhemoglobin Carboxyhemoglobin Sodium Potassium Chloride Carbon Dioxide BUN Creatinine Glucose POC Glucose 189 H 212 H 175 H Hemoglobin A1c Lactic Acid Calcium Phosphorus Magnesium Ferritin Total Bilirubin AST ALT Lactate Dehydrogenase C-Reactive Protein Albumin Triglycerides Arterial Blood Glucose Arterial Blood Ionized Calcium Urine Creatinine Coronavirus (PCR) Crossmatch 01/28/21 01/28/21 01/28/21 03:58 04:00 04:00 WBC RBC Hgb Hct MCV MCH MCHC RDW Plt Count Lymph % (Auto) Lymph # (Auto) Seg Neutrophils % Seg Neuts % (Manual) Lymphocytes % (Manual) Monocytes % (Manual) Nucleated RBC % Seg Neutrophils # Seg Neutrophils # Man Lymphocytes # (Manual) Monocytes # (Manual) Eosinophils # (Manual) INR D-Dimer > 40385 H ABG pH POC ABG pCO2 POC ABG pO2 52.9 L ABG pO2 ABG HCO3 ABG O2 Saturation ABG Base Excess ABG Hemoglobin ABG Oxyhemoglobin 84.1 L ABG Sodium 148.9 H ABG Potassium ABG Chloride 117.0 H ABG Glucose 194 H Oxyhemoglobin Carboxyhemoglobin Sodium Potassium Chloride Carbon Dioxide BUN Creatinine Glucose POC Glucose Hemoglobin A1c Lactic Acid Calcium Phosphorus Magnesium Ferritin Total Bilirubin AST ALT Lactate Dehydrogenase 679 H C-Reactive Protein 17.10 H Albumin Triglycerides Arterial Blood Glucose 194 H Arterial Blood Ionized Calcium Urine Creatinine Coronavirus (PCR) Crossmatch 01/28/21 01/28/21 01/28/21 04:00 05:00 06:00 WBC RBC 3.59 L Hgb 11.6 L Hct 34.8 L MCV 97 H MCH MCHC RDW Plt Count Lymph % (Auto) Lymph # (Auto) Seg Neutrophils % Seg Neuts % (Manual) 96.0 H Lymphocytes % (Manual) 3.0 L Monocytes % (Manual) Nucleated RBC % Seg Neutrophils # Seg Neutrophils # Man Lymphocytes # (Manual) 0.2 L Monocytes # (Manual) Eosinophils # (Manual) INR D-Dimer ABG pH POC ABG pCO2 POC ABG pO2 ABG pO2 ABG HCO3 ABG O2 Saturation ABG Base Excess ABG Hemoglobin ABG Oxyhemoglobin ABG Sodium ABG Potassium ABG Chloride ABG Glucose Oxyhemoglobin Carboxyhemoglobin Sodium Potassium Chloride Carbon Dioxide BUN Creatinine Glucose POC Glucose 159 H Hemoglobin A1c Lactic Acid Calcium Phosphorus Magnesium Ferritin 798.0 H Total Bilirubin AST ALT Lactate Dehydrogenase C-Reactive Protein Albumin Triglycerides Arterial Blood Glucose Arterial Blood Ionized Calcium Urine Creatinine Coronavirus (PCR) Crossmatch 01/28/21 01/28/21 01/28/21 06:00 06:00 08:12 WBC RBC Hgb Hct MCV MCH MCHC RDW Plt Count Lymph % (Auto) Lymph # (Auto) Seg Neutrophils % Seg Neuts % (Manual) Lymphocytes % (Manual) Monocytes % (Manual) Nucleated RBC % Seg Neutrophils # Seg Neutrophils # Man Lymphocytes # (Manual) Monocytes # (Manual) Eosinophils # (Manual) INR D-Dimer ABG pH POC ABG pCO2 POC ABG pO2 ABG pO2 ABG HCO3 ABG O2 Saturation ABG Base Excess ABG Hemoglobin ABG Oxyhemoglobin ABG Sodium ABG Potassium ABG Chloride ABG Glucose Oxyhemoglobin Carboxyhemoglobin Sodium Potassium Chloride 111.9 H Carbon Dioxide BUN 59 H Creatinine 2.2 H Glucose 189 H POC Glucose 181 H Hemoglobin A1c Lactic Acid Calcium 8.1 L Phosphorus Magnesium 3.20 H Ferritin Total Bilirubin AST ALT Lactate Dehydrogenase C-Reactive Protein Albumin Triglycerides Arterial Blood Glucose Arterial Blood Ionized Calcium Urine Creatinine Coronavirus (PCR) Crossmatch 01/28/21 01/28/21 01/28/21 12:03 16:43 23:51 WBC RBC Hgb Hct MCV MCH MCHC RDW Plt Count Lymph % (Auto) Lymph # (Auto) Seg Neutrophils % Seg Neuts % (Manual) Lymphocytes % (Manual) Monocytes % (Manual) Nucleated RBC % Seg Neutrophils # Seg Neutrophils # Man Lymphocytes # (Manual) Monocytes # (Manual) Eosinophils # (Manual) INR D-Dimer ABG pH POC ABG pCO2 POC ABG pO2 ABG pO2 ABG HCO3 ABG O2 Saturation ABG Base Excess ABG Hemoglobin ABG Oxyhemoglobin ABG Sodium ABG Potassium ABG Chloride ABG Glucose Oxyhemoglobin Carboxyhemoglobin Sodium Potassium Chloride Carbon Dioxide BUN Creatinine Glucose POC Glucose 164 H 198 H 196 H Hemoglobin A1c Lactic Acid Calcium Phosphorus Magnesium Ferritin Total Bilirubin AST ALT Lactate Dehydrogenase C-Reactive Protein Albumin Triglycerides Arterial Blood Glucose Arterial Blood Ionized Calcium Urine Creatinine Coronavirus (PCR) Crossmatch 01/29/21 01/29/21 01/29/21 05:00 05:23 06:00 WBC RBC Hgb Hct MCV MCH MCHC RDW Plt Count Lymph % (Auto) Lymph # (Auto) Seg Neutrophils % Seg Neuts % (Manual) Lymphocytes % (Manual) Monocytes % (Manual) Nucleated RBC % Seg Neutrophils # Seg Neutrophils # Man Lymphocytes # (Manual) Monocytes # (Manual) Eosinophils # (Manual) INR D-Dimer ABG pH 7.119 L POC ABG pCO2 87.1 H POC ABG pO2 ABG pO2 ABG HCO3 ABG O2 Saturation ABG Base Excess ABG Hemoglobin ABG Oxyhemoglobin ABG Sodium 152.5 H ABG Potassium 5.7 H ABG Chloride 120.0 H ABG Glucose 217 H Oxyhemoglobin Carboxyhemoglobin Sodium 151 H Potassium 5.9 H D Chloride 117.8 H Carbon Dioxide BUN 54 H Creatinine 2.2 H Glucose 208 H POC Glucose 180 H Hemoglobin A1c Lactic Acid Calcium 7.9 L Phosphorus Magnesium Ferritin Total Bilirubin AST ALT Lactate Dehydrogenase C-Reactive Protein Albumin Triglycerides Arterial Blood Glucose 217 H Arterial Blood Ionized Calcium Urine Creatinine Coronavirus (PCR) Crossmatch 01/29/21 01/29/21 01/29/21 12:29 17:28 18:05 WBC RBC Hgb Hct MCV MCH MCHC RDW Plt Count Lymph % (Auto) Lymph # (Auto) Seg Neutrophils % Seg Neuts % (Manual) Lymphocytes % (Manual) Monocytes % (Manual) Nucleated RBC % Seg Neutrophils # Seg Neutrophils # Man Lymphocytes # (Manual) Monocytes # (Manual) Eosinophils # (Manual) INR D-Dimer ABG pH POC ABG pCO2 POC ABG pO2 ABG pO2 ABG HCO3 ABG O2 Saturation ABG Base Excess ABG Hemoglobin ABG Oxyhemoglobin ABG Sodium ABG Potassium ABG Chloride ABG Glucose Oxyhemoglobin Carboxyhemoglobin Sodium 151 H Potassium 5.5 H Chloride 118.2 H Carbon Dioxide BUN 52 H Creatinine 2.2 H Glucose 224 H POC Glucose 181 H 203 H Hemoglobin A1c Lactic Acid Calcium 8.0 L Phosphorus Magnesium Ferritin Total Bilirubin AST ALT Lactate Dehydrogenase C-Reactive Protein Albumin Triglycerides Arterial Blood Glucose Arterial Blood Ionized Calcium Urine Creatinine Coronavirus (PCR) Crossmatch 01/29/21 01/29/21 01/29/21 18:13 23:34 Unknown WBC RBC Hgb Hct MCV 101 H MCH MCHC RDW 15.7 H Plt Count Lymph % (Auto) Lymph # (Auto) Seg Neutrophils % Seg Neuts % (Manual) 95.0 H Lymphocytes % (Manual) 3.0 L Monocytes % (Manual) Nucleated RBC % Seg Neutrophils # Seg Neutrophils # Man 8.0 H Lymphocytes # (Manual) 0.3 L Monocytes # (Manual) Eosinophils # (Manual) INR D-Dimer ABG pH 7.223 L POC ABG pCO2 64.8 H POC ABG pO2 63.6 L ABG pO2 ABG HCO3 ABG O2 Saturation ABG Base Excess ABG Hemoglobin ABG Oxyhemoglobin 89.4 L ABG Sodium 152.9 H ABG Potassium 5.3 H ABG Chloride 121.0 H ABG Glucose 227 H Oxyhemoglobin Carboxyhemoglobin Sodium Potassium Chloride Carbon Dioxide BUN Creatinine Glucose POC Glucose 198 H Hemoglobin A1c Lactic Acid Calcium Phosphorus Magnesium Ferritin Total Bilirubin AST ALT Lactate Dehydrogenase C-Reactive Protein Albumin Triglycerides Arterial Blood Glucose 227 H Arterial Blood Ionized Calcium Urine Creatinine Coronavirus (PCR) Crossmatch 01/30/21 01/30/21 01/30/21 04:00 04:00 04:00 WBC RBC Hgb Hct MCV MCH MCHC RDW Plt Count Lymph % (Auto) Lymph # (Auto) Seg Neutrophils % Seg Neuts % (Manual) Lymphocytes % (Manual) Monocytes % (Manual) Nucleated RBC % Seg Neutrophils # Seg Neutrophils # Man Lymphocytes # (Manual) Monocytes # (Manual) Eosinophils # (Manual) INR D-Dimer > 50394 H ABG pH POC ABG pCO2 POC ABG pO2 ABG pO2 ABG HCO3 ABG O2 Saturation ABG Base Excess ABG Hemoglobin ABG Oxyhemoglobin ABG Sodium ABG Potassium ABG Chloride ABG Glucose Oxyhemoglobin Carboxyhemoglobin Sodium Potassium Chloride Carbon Dioxide BUN Creatinine Glucose 234 H POC Glucose Hemoglobin A1c Lactic Acid Calcium Phosphorus Magnesium Ferritin 763.9 H Total Bilirubin AST ALT Lactate Dehydrogenase 424 H C-Reactive Protein 23.90 H Albumin Triglycerides Arterial Blood Glucose Arterial Blood Ionized Calcium Urine Creatinine Coronavirus (PCR) Crossmatch 01/30/21 01/30/2101/30/21 04:24 05:00 05:16 WBC RBC 3.57 L Hgb 11.3 L Hct 35.4 L MCV 99 H MCH MCHC RDW 15.6 H Plt Count Lymph % (Auto) Lymph # (Auto) Seg Neutrophils % Seg Neuts % (Manual) 97.0 H Lymphocytes % (Manual) 1.0 L Monocytes % (Manual) Nucleated RBC % Seg Neutrophils # Seg Neutrophils # Man 8.6 H Lymphocytes # (Manual) 0.1 L Monocytes # (Manual) Eosinophils # (Manual) INR D-Dimer ABG pH 7.235 L POC ABG pCO2 69.7 H POC ABG pO2 61.0 L ABG pO2 ABG HCO3 ABG O2 Saturation ABG Base Excess ABG Hemoglobin ABG Oxyhemoglobin 89 L ABG Sodium 154.2 H ABG Potassium 5.4 H ABG Chloride 121.0 H ABG Glucose 247 H Oxyhemoglobin Carboxyhemoglobin Sodium Potassium Chloride Carbon Dioxide BUN Creatinine Glucose POC Glucose 238 H Hemoglobin A1c Lactic Acid Calcium Phosphorus Magnesium Ferritin Total Bilirubin AST ALT Lactate Dehydrogenase C-Reactive Protein Albumin Triglycerides Arterial Blood Glucose 247 H Arterial Blood Ionized Calcium Urine Creatinine Coronavirus (PCR) Crossmatch 01/30/21 01/30/21 01/30/21 06:00 11:28 12:00 WBC RBC Hgb Hct MCV MCH MCHC RDW Plt Count Lymph % (Auto) Lymph # (Auto) Seg Neutrophils % Seg Neuts % (Manual) Lymphocytes % (Manual) Monocytes % (Manual) Nucleated RBC % Seg Neutrophils # Seg Neutrophils # Man Lymphocytes # (Manual) Monocytes # (Manual) Eosinophils # (Manual) INR D-Dimer ABG pH POC ABG pCO2 POC ABG pO2 ABG pO2 ABG HCO3 ABG O2 Saturation ABG Base Excess ABG Hemoglobin ABG Oxyhemoglobin ABG Sodium ABG Potassium ABG Chloride ABG Glucose Oxyhemoglobin Carboxyhemoglobin Sodium 152 H Potassium 5.3 H Chloride 120.5 H Carbon Dioxide BUN 50 H Creatinine 2.3 H Glucose 239 H POC Glucose 153 H Hemoglobin A1c Lactic Acid Calcium 8.2 L Phosphorus Magnesium 2.60 H Ferritin Total Bilirubin AST ALT Lactate Dehydrogenase C-Reactive Protein Albumin Triglycerides 293 H Arterial Blood Glucose Arterial Blood Ionized Calcium Urine Creatinine 53.0 H Coronavirus (PCR) Crossmatch 01/30/21 01/30/21 01/31/21 18:49 23:06 04:00 WBC RBC Hgb Hct MCV MCH MCHC RDW Plt Count Lymph % (Auto) Lymph # (Auto) Seg Neutrophils % Seg Neuts % (Manual) Lymphocytes % (Manual) Monocytes % (Manual) Nucleated RBC % Seg Neutrophils # Seg Neutrophils # Man Lymphocytes # (Manual) Monocytes # (Manual) Eosinophils # (Manual) INR D-Dimer ABG pH POC ABG pCO2 POC ABG pO2 ABG pO2 ABG HCO3 ABG O2 Saturation ABG Base Excess ABG Hemoglobin ABG Oxyhemoglobin ABG Sodium ABG Potassium ABG Chloride ABG Glucose Oxyhemoglobin Carboxyhemoglobin Sodium 156 H Potassium 5.9 H Chloride 122.6 H Carbon Dioxide BUN 61 H Creatinine 3.2 H Glucose 205 H POC Glucose 220 H 192 H Hemoglobin A1c Lactic Acid Calcium 8.0 L Phosphorus Magnesium Ferritin Total Bilirubin AST ALT Lactate Dehydrogenase C-Reactive Protein Albumin Triglycerides Arterial Blood Glucose Arterial Blood Ionized Calcium Urine Creatinine Coronavirus (PCR) Crossmatch 01/31/21 01/31/21 01/31/21 04:40 05:17 11:33 WBC RBC Hgb Hct MCV MCH MCHC RDW Plt Count Lymph % (Auto) Lymph # (Auto) Seg Neutrophils % Seg Neuts % (Manual) Lymphocytes % (Manual) Monocytes % (Manual) Nucleated RBC % Seg Neutrophils # Seg Neutrophils # Man Lymphocytes # (Manual) Monocytes # (Manual) Eosinophils # (Manual) INR D-Dimer ABG pH 7.161 L* POC ABG pCO2 POC ABG pO2 ABG pO2 142.2 H ABG HCO3 28.3 H ABG O2 Saturation ABG Base Excess -3.2 L ABG Hemoglobin ABG Oxyhemoglobin ABG Sodium ABG Potassium ABG Chloride ABG Glucose Oxyhemoglobin Carboxyhemoglobin Sodium Potassium Chloride Carbon Dioxide BUN Creatinine Glucose POC Glucose 200 H 167 H Hemoglobin A1c Lactic Acid Calcium Phosphorus Magnesium Ferritin Total Bilirubin AST ALT Lactate Dehydrogenase C-Reactive Protein Albumin Triglycerides Arterial Blood Glucose Arterial Blood Ionized Calcium Urine Creatinine Coronavirus (PCR) Crossmatch 01/31/21 01/31/21 01/31/21 14:00 17:10 23:24 WBC RBC Hgb Hct MCV MCH MCHC RDW Plt Count Lymph % (Auto) Lymph # (Auto) Seg Neutrophils % Seg Neuts % (Manual) Lymphocytes % (Manual) Monocytes % (Manual) Nucleated RBC % Seg Neutrophils # Seg Neutrophils # Man Lymphocytes # (Manual) Monocytes # (Manual) Eosinophils # (Manual) INR D-Dimer ABG pH 7.205 L POC ABG pCO2 POC ABG pO2 ABG pO2 90.9 H ABG HCO3 26.5 H ABG O2 Saturation ABG Base Excess -2.7 L ABG Hemoglobin 12.3 L ABG Oxyhemoglobin ABG Sodium ABG Potassium ABG Chloride ABG Glucose Oxyhemoglobin 93.9 L Carboxyhemoglobin Sodium Potassium Chloride Carbon Dioxide BUN Creatinine Glucose POC Glucose 190 H 203 H Hemoglobin A1c Lactic Acid Calcium Phosphorus Magnesium Ferritin Total Bilirubin AST ALT Lactate Dehydrogenase C-Reactive Protein Albumin Triglycerides Arterial Blood Glucose Arterial Blood Ionized Calcium Urine Creatinine Coronavirus (PCR) Crossmatch 02/01/21 02/01/21 02/01/21 05:15 06:22 10:20 WBC RBC Hgb Hct MCV MCH MCHC RDW Plt Count Lymph % (Auto) Lymph # (Auto) Seg Neutrophils % Seg Neuts % (Manual) Lymphocytes % (Manual) Monocytes % (Manual) Nucleated RBC % Seg Neutrophils # Seg Neutrophils # Man Lymphocytes # (Manual) Monocytes # (Manual) Eosinophils # (Manual) INR D-Dimer ABG pH 6.920 L* 7.116 L* POC ABG pCO2 POC ABG pO2 ABG pO2 102.9 H 113.1 H ABG HCO3 28.2 H ABG O2 Saturation 92.9 L ABG Base Excess -6.9 L -5.8 L ABG Hemoglobin 11.6 L 9.5 L ABG Oxyhemoglobin ABG Sodium ABG Potassium ABG Chloride ABG Glucose Oxyhemoglobin 90.5 L 94.6 L Carboxyhemoglobin Sodium Potassium Chloride Carbon Dioxide BUN Creatinine Glucose POC Glucose 221 H Hemoglobin A1c Lactic Acid Calcium Phosphorus Magnesium Ferritin Total Bilirubin AST ALT Lactate Dehydrogenase C-Reactive Protein Albumin Triglycerides Arterial Blood Glucose Arterial Blood Ionized Calcium Urine Creatinine Coronavirus (PCR) Crossmatch 02/01/21 02/01/21 02/01/21 11:12 12:35 16:00 WBC RBC Hgb Hct MCV MCH MCHC RDW Plt Count Lymph % (Auto) Lymph # (Auto) Seg Neutrophils % Seg Neuts % (Manual) Lymphocytes % (Manual) Monocytes % (Manual) Nucleated RBC % Seg Neutrophils # Seg Neutrophils # Man Lymphocytes # (Manual) Monocytes # (Manual) Eosinophils # (Manual) INR D-Dimer ABG pH 7.155 L* POC ABG pCO2 POC ABG pO2 ABG pO2 94.6 H ABG HCO3 ABG O2 Saturation ABG Base Excess -6.5 L ABG Hemoglobin 13.1 L ABG Oxyhemoglobin ABG Sodium ABG Potassium ABG Chloride ABG Glucose Oxyhemoglobin 93.7 L Carboxyhemoglobin Sodium 155 H Potassium 5.1 H Chloride 120.5 H Carbon Dioxide BUN 90 H Creatinine 6.1 H D Glucose 238 H POC Glucose 207 H Hemoglobin A1c Lactic Acid Calcium 7.4 L Phosphorus Magnesium Ferritin Total Bilirubin AST ALT Lactate Dehydrogenase C-Reactive Protein Albumin Triglycerides Arterial Blood Glucose Arterial Blood Ionized Calcium Urine Creatinine Coronavirus (PCR) Crossmatch 02/01/21 02/01/21 02/02/21 17:10 23:47 04:04 WBC RBC 3.02 L Hgb 9.8 L Hct 30.7 L MCV 102 H MCH MCHC RDW 15.6 H Plt Count Lymph % (Auto) 4.2 L Lymph # (Auto) 0.3 L Seg Neutrophils % Seg Neuts % (Manual) Lymphocytes % (Manual) Monocytes % (Manual) Nucleated RBC % Seg Neutrophils # Seg Neutrophils # Man Lymphocytes # (Manual) Monocytes # (Manual) Eosinophils # (Manual) INR D-Dimer ABG pH POC ABG pCO2 POC ABG pO2 ABG pO2 ABG HCO3 ABG O2 Saturation ABG Base Excess ABG Hemoglobin ABG Oxyhemoglobin ABG Sodium ABG Potassium ABG Chloride ABG Glucose Oxyhemoglobin Carboxyhemoglobin Sodium Potassium Chloride Carbon Dioxide BUN Creatinine Glucose POC Glucose 238 H 235 H Hemoglobin A1c Lactic Acid Calcium Phosphorus Magnesium Ferritin Total Bilirubin AST ALT Lactate Dehydrogenase C-Reactive Protein Albumin Triglycerides Arterial Blood Glucose Arterial Blood Ionized Calcium Urine Creatinine Coronavirus (PCR) Crossmatch 02/02/21 02/02/21 02/02/21 05:18 05:35 11:28 WBC RBC Hgb Hct MCV MCH MCHC RDW Plt Count Lymph % (Auto) Lymph # (Auto) Seg Neutrophils % Seg Neuts % (Manual) Lymphocytes % (Manual) Monocytes % (Manual) Nucleated RBC % Seg Neutrophils # Seg Neutrophils # Man Lymphocytes # (Manual) Monocytes # (Manual) Eosinophils # (Manual) INR D-Dimer ABG pH 7.195 L* POC ABG pCO2 POC ABG pO2 ABG pO2 72.5 L ABG HCO3 ABG O2 Saturation 91.2 L ABG Base Excess -5.3 L ABG Hemoglobin 6.0 L ABG Oxyhemoglobin ABG Sodium ABG Potassium ABG Chloride ABG Glucose Oxyhemoglobin 89.1 L Carboxyhemoglobin Sodium Potassium Chloride 110.4 H Carbon Dioxide BUN 92 H Creatinine Glucose POC Glucose 239 H Hemoglobin A1c Lactic Acid Calcium Phosphorus Magnesium Ferritin Total Bilirubin AST ALT Lactate Dehydrogenase C-Reactive Protein Albumin Triglycerides Arterial Blood Glucose Arterial Blood Ionized Calcium Urine Creatinine Coronavirus (PCR) Crossmatch 02/02/21 02/02/21 02/02/21 11:53 16:00 18:04 WBC RBC Hgb Hct MCV MCH MCHC RDW Plt Count Lymph % (Auto) Lymph # (Auto) Seg Neutrophils % Seg Neuts % (Manual) Lymphocytes % (Manual) Monocytes % (Manual) Nucleated RBC % Seg Neutrophils # Seg Neutrophils # Man Lymphocytes # (Manual) Monocytes # (Manual) Eosinophils # (Manual) INR D-Dimer ABG pH POC ABG pCO2 POC ABG pO2 ABG pO2 ABG HCO3 ABG O2 Saturation ABG Base Excess ABG Hemoglobin ABG Oxyhemoglobin ABG Sodium ABG Potassium ABG Chloride ABG Glucose Oxyhemoglobin Carboxyhemoglobin Sodium Potassium Chloride Carbon Dioxide BUN Creatinine Glucose POC Glucose 248 H 199 H Hemoglobin A1c 6.3 H Lactic Acid Calcium Phosphorus Magnesium Ferritin Total Bilirubin AST ALT Lactate Dehydrogenase C-Reactive Protein Albumin Triglycerides Arterial Blood Glucose Arterial Blood Ionized Calcium Urine Creatinine Coronavirus (PCR) Crossmatch 02/02/21 02/03/21 02/03/21 23:31 03:12 04:10 WBC RBC 3.06 L Hgb 9.7 L Hct 30.4 L MCV 99 H MCH MCHC RDW 15.3 H Plt Count Lymph % (Auto) 6.1 L Lymph # (Auto) 0.5 L Seg Neutrophils % 86.1 H Seg Neuts % (Manual) Lymphocytes % (Manual) Monocytes % (Manual) Nucleated RBC % Seg Neutrophils # Seg Neutrophils # Man Lymphocytes # (Manual) Monocytes # (Manual) Eosinophils # (Manual) INR D-Dimer ABG pH 7.199 L POC ABG pCO2 48.3 H POC ABG pO2 68.3 L ABG pO2 ABG HCO3 ABG O2 Saturation ABG Base Excess ABG Hemoglobin 10.2 L ABG Oxyhemoglobin 89.2 L ABG Sodium 155.0 H ABG Potassium 4.6 H ABG Chloride 121.0 H ABG Glucose 166 H Oxyhemoglobin Carboxyhemoglobin 0.3 L Sodium Potassium Chloride Carbon Dioxide BUN Creatinine Glucose POC Glucose 200 H Hemoglobin A1c Lactic Acid Calcium Phosphorus Magnesium Ferritin Total Bilirubin AST ALT Lactate Dehydrogenase C-Reactive Protein Albumin Triglycerides Arterial Blood Glucose 166 H Arterial Blood Ionized Calcium 4.1 L Urine Creatinine Coronavirus (PCR) Crossmatch 02/03/21 02/03/21 02/03/21 04:10 05:34 11:51 WBC RBC Hgb Hct MCV MCH MCHC RDW Plt Count Lymph % (Auto) Lymph # (Auto) Seg Neutrophils % Seg Neuts % (Manual) Lymphocytes % (Manual) Monocytes % (Manual) Nucleated RBC % Seg Neutrophils # Seg Neutrophils # Man Lymphocytes # (Manual) Monocytes # (Manual) Eosinophils # (Manual) INR D-Dimer ABG pH POC ABG pCO2 POC ABG pO2 ABG pO2 ABG HCO3 ABG O2 Saturation ABG Base Excess ABG Hemoglobin ABG Oxyhemoglobin ABG Sodium ABG Potassium ABG Chloride ABG Glucose Oxyhemoglobin Carboxyhemoglobin Sodium 154 H D Potassium Chloride 116.7 H Carbon Dioxide 20 L BUN 130 H Creatinine 9.2 H D Glucose 160 H POC Glucose 130 H 154 H Hemoglobin A1c Lactic Acid Calcium 6.7 L Phosphorus 8.60 H Magnesium Ferritin Total Bilirubin AST ALT Lactate Dehydrogenase C-Reactive Protein Albumin Triglycerides Arterial Blood Glucose Arterial Blood Ionized Calcium Urine Creatinine Coronavirus (PCR) Crossmatch 02/03/21 02/03/21 02/04/21 16:49 23:22 03:48 WBC RBC Hgb Hct MCV MCH MCHC RDW Plt Count Lymph % (Auto) Lymph # (Auto) Seg Neutrophils % Seg Neuts % (Manual) Lymphocytes % (Manual) Monocytes % (Manual) Nucleated RBC % Seg Neutrophils # Seg Neutrophils # Man Lymphocytes # (Manual) Monocytes # (Manual) Eosinophils # (Manual) INR D-Dimer ABG pH 7.201 L POC ABG pCO2 54.5 H POC ABG pO2 74.0 L ABG pO2 ABG HCO3 ABG O2 Saturation ABG Base Excess ABG Hemoglobin 9.7 L ABG Oxyhemoglobin 91.1 L ABG Sodium 146.2 H ABG Potassium ABG Chloride 114.0 H ABG Glucose 155 H Oxyhemoglobin Carboxyhemoglobin Sodium Potassium Chloride Carbon Dioxide BUN Creatinine Glucose POC Glucose 164 H 152 H Hemoglobin A1c Lactic Acid Calcium Phosphorus Magnesium Ferritin Total Bilirubin AST ALT Lactate Dehydrogenase C-Reactive Protein Albumin Triglycerides Arterial Blood Glucose 155 H Arterial Blood Ionized Calcium 3.9 L Urine Creatinine Coronavirus (PCR) Crossmatch 02/04/21 02/04/21 02/04/21 04:45 04:45 04:45 WBC RBC 2.75 L Hgb 9.1 L Hct 26.9 L MCV 98 H MCH 33 H MCHC RDW Plt Count Lymph % (Auto) 6.8 L Lymph # (Auto) 0.5 L Seg Neutrophils % 87.2 H Seg Neuts % (Manual) Lymphocytes % (Manual) Monocytes % (Manual) Nucleated RBC % Seg Neutrophils # Seg Neutrophils # Man Lymphocytes # (Manual) Monocytes # (Manual) Eosinophils # (Manual) INR D-Dimer ABG pH POC ABG pCO2 POC ABG pO2 ABG pO2 ABG HCO3 ABG O2 Saturation ABG Base Excess ABG Hemoglobin ABG Oxyhemoglobin ABG Sodium ABG Potassium ABG Chloride ABG Glucose Oxyhemoglobin Carboxyhemoglobin Sodium 149 H Potassium Chloride 111.5 H Carbon Dioxide BUN 99 H Creatinine 8.5 H Glucose 139 H POC Glucose Hemoglobin A1c Lactic Acid Calcium 6.8 L Phosphorus 8.40 H Magnesium Ferritin Total Bilirubin AST ALT Lactate Dehydrogenase C-Reactive Protein Albumin Triglycerides Arterial Blood Glucose Arterial Blood Ionized Calcium Urine Creatinine Coronavirus (PCR) Crossmatch 02/04/21 02/04/21 02/04/21 06:05 11:44 18:00 WBC RBC Hgb Hct MCV MCH MCHC RDW Plt Count Lymph % (Auto) Lymph # (Auto) Seg Neutrophils % Seg Neuts % (Manual) Lymphocytes % (Manual) Monocytes % (Manual) Nucleated RBC % Seg Neutrophils # Seg Neutrophils # Man Lymphocytes # (Manual) Monocytes # (Manual) Eosinophils # (Manual) INR D-Dimer ABG pH POC ABG pCO2 POC ABG pO2 ABG pO2 ABG HCO3 ABG O2 Saturation ABG Base Excess ABG Hemoglobin ABG Oxyhemoglobin ABG Sodium ABG Potassium ABG Chloride ABG Glucose Oxyhemoglobin Carboxyhemoglobin Sodium Potassium Chloride Carbon Dioxide BUN Creatinine Glucose POC Glucose 138 H 129 H 163 H Hemoglobin A1c Lactic Acid Calcium Phosphorus Magnesium Ferritin Total Bilirubin AST ALT Lactate Dehydrogenase C-Reactive Protein Albumin Triglycerides Arterial Blood Glucose Arterial Blood Ionized Calcium Urine Creatinine Coronavirus (PCR) Crossmatch 02/04/21 02/05/21 02/05/21 23:48 01:50 01:50 WBC RBC 2.43 L Hgb 8.3 L Hct 23.6 L MCV 97 H MCH 34 H MCHC 35 H RDW Plt Count 137 L Lymph % (Auto) 8.4 L Lymph # (Auto) 0.6 L Seg Neutrophils % 86.1 H Seg Neuts % (Manual) Lymphocytes % (Manual) Monocytes % (Manual) Nucleated RBC % Seg Neutrophils # Seg Neutrophils # Man Lymphocytes # (Manual) Monocytes # (Manual) Eosinophils # (Manual) INR D-Dimer ABG pH POC ABG pCO2 POC ABG pO2 ABG pO2 ABG HCO3 ABG O2 Saturation ABG Base Excess ABG Hemoglobin ABG Oxyhemoglobin ABG Sodium ABG Potassium ABG Chloride ABG Glucose Oxyhemoglobin Carboxyhemoglobin Sodium Potassium Chloride Carbon Dioxide BUN Creatinine Glucose POC Glucose 157 H Hemoglobin A1c Lactic Acid Calcium Phosphorus 5.60 H D Magnesium Ferritin Total Bilirubin AST ALT Lactate Dehydrogenase C-Reactive Protein Albumin Triglycerides Arterial Blood Glucose Arterial Blood Ionized Calcium Urine Creatinine Coronavirus (PCR) Crossmatch 02/05/21 02/05/21 02/05/21 03:44 05:27 09:15 WBC RBC Hgb Hct MCV MCH MCHC RDW Plt Count Lymph % (Auto) Lymph # (Auto) Seg Neutrophils % Seg Neuts % (Manual) Lymphocytes % (Manual) Monocytes % (Manual) Nucleated RBC % Seg Neutrophils # Seg Neutrophils # Man Lymphocytes # (Manual) Monocytes # (Manual) Eosinophils # (Manual) INR D-Dimer ABG pH 7.202 L POC ABG pCO2 63.7 H POC ABG pO2 69.0 L ABG pO2 ABG HCO3 ABG O2 Saturation ABG Base Excess ABG Hemoglobin 9.4 L ABG Oxyhemoglobin ABG Sodium ABG Potassium ABG Chloride 108.0 H ABG Glucose 186 H Oxyhemoglobin Carboxyhemoglobin Sodium Potassium Chloride Carbon Dioxide BUN 78 H Creatinine 8.0 H Glucose 163 H POC Glucose 157 H Hemoglobin A1c Lactic Acid Calcium 6.3 L Phosphorus Magnesium Ferritin Total Bilirubin AST ALT Lactate Dehydrogenase C-Reactive Protein Albumin Triglycerides Arterial Blood Glucose 186 H Arterial Blood Ionized Calcium 3.9 L Urine Creatinine Coronavirus (PCR) Crossmatch 02/05/21 02/05/21 02/05/21 11:47 17:39 23:40 WBC RBC Hgb Hct MCV MCH MCHC RDW Plt Count Lymph % (Auto) Lymph # (Auto) Seg Neutrophils % Seg Neuts % (Manual) Lymphocytes % (Manual) Monocytes % (Manual) Nucleated RBC % Seg Neutrophils # Seg Neutrophils # Man Lymphocytes # (Manual) Monocytes # (Manual) Eosinophils # (Manual) INR D-Dimer ABG pH 7.273 L POC ABG pCO2 62.1 H POC ABG pO2 72.0 L ABG pO2 ABG HCO3 ABG O2 Saturation ABG Base Excess ABG Hemoglobin 9.1 L ABG Oxyhemoglobin 91.3 L ABG Sodium ABG Potassium 3.1 L ABG Chloride ABG Glucose 125 H Oxyhemoglobin Carboxyhemoglobin Sodium Potassium Chloride Carbon Dioxide BUN Creatinine Glucose POC Glucose 126 H 126 H Hemoglobin A1c Lactic Acid Calcium Phosphorus Magnesium Ferritin Total Bilirubin AST ALT Lactate Dehydrogenase C-Reactive Protein Albumin Triglycerides Arterial Blood Glucose 125 H Arterial Blood Ionized Calcium 4.0 L Urine Creatinine Coronavirus (PCR) Crossmatch 02/06/21 02/06/21 02/06/21 04:30 04:57 09:45 WBC RBC Hgb Hct MCV MCH MCHC RDW Plt Count Lymph % (Auto) Lymph # (Auto) Seg Neutrophils % Seg Neuts % (Manual) Lymphocytes % (Manual) Monocytes % (Manual) Nucleated RBC % Seg Neutrophils # Seg Neutrophils # Man Lymphocytes # (Manual) Monocytes # (Manual) Eosinophils # (Manual) INR D-Dimer ABG pH 7.159 L 7.138 L* POC ABG pCO2 76.3 H POC ABG pO2 66.9 L ABG pO2 ABG HCO3 ABG O2 Saturation 93.4 L ABG Base Excess -6.0 L ABG Hemoglobin 11.2 L 11.7 L ABG Oxyhemoglobin 88.2 L ABG Sodium ABG Potassium ABG Chloride ABG Glucose 134 H Oxyhemoglobin 91.2 L Carboxyhemoglobin Sodium Potassium Chloride Carbon Dioxide BUN Creatinine Glucose POC Glucose 124 H Hemoglobin A1c Lactic Acid Calcium Phosphorus Magnesium Ferritin Total Bilirubin AST ALT Lactate Dehydrogenase C-Reactive Protein Albumin Triglycerides Arterial Blood Glucose 134 H Arterial Blood Ionized Calcium 3.9 L Urine Creatinine Coronavirus (PCR) Crossmatch 02/06/21 02/06/21 02/06/21 11:11 17:00 17:00 WBC RBC Hgb Hct MCV MCH MCHC RDW Plt Count Lymph % (Auto) Lymph # (Auto) Seg Neutrophils % Seg Neuts % (Manual) Lymphocytes % (Manual) Monocytes % (Manual) Nucleated RBC % Seg Neutrophils # Seg Neutrophils # Man Lymphocytes # (Manual) Monocytes # (Manual) Eosinophils # (Manual) INR D-Dimer ABG pH 7.158 L* POC ABG pCO2 POC ABG pO2 ABG pO2 109.8 H ABG HCO3 28.7 H ABG O2 Saturation ABG Base Excess -2.5 L ABG Hemoglobin ABG Oxyhemoglobin ABG Sodium ABG Potassium ABG Chloride ABG Glucose Oxyhemoglobin 94.5 L Carboxyhemoglobin Sodium Potassium Chloride Carbon Dioxide BUN Creatinine Glucose POC Glucose 120 H Hemoglobin A1c Lactic Acid Calcium Phosphorus Magnesium Ferritin Total Bilirubin AST ALT Lactate Dehydrogenase C-Reactive Protein Albumin Triglycerides 503 H Arterial Blood Glucose Arterial Blood Ionized Calcium Urine Creatinine Coronavirus (PCR) Crossmatch 02/06/21 02/06/21 02/06/21 17:28 20:16 Unknown WBC 13.5 H RBC 2.98 L Hgb 9.3 L Hct 28.6 L MCV 96 H MCH MCHC RDW Plt Count Lymph % (Auto) Lymph # (Auto) Seg Neutrophils % Seg Neuts % (Manual) 87.0 H Lymphocytes % (Manual) 7.0 L Monocytes % (Manual) Nucleated RBC % Seg Neutrophils # Seg Neutrophils # Man 11.7 H Lymphocytes # (Manual) 0.9 L Monocytes # (Manual) Eosinophils # (Manual) 0.5 H INR D-Dimer ABG pH POC ABG pCO2 POC ABG pO2 ABG pO2 ABG HCO3 ABG O2 Saturation ABG Base Excess ABG Hemoglobin ABG Oxyhemoglobin ABG Sodium ABG Potassium ABG Chloride ABG Glucose Oxyhemoglobin Carboxyhemoglobin Sodium Potassium Chloride Carbon Dioxide BUN Creatinine Glucose POC Glucose 147 H 164 H Hemoglobin A1c Lactic Acid Calcium Phosphorus Magnesium Ferritin Total Bilirubin AST ALT Lactate Dehydrogenase C-Reactive Protein Albumin Triglycerides Arterial Blood Glucose Arterial Blood Ionized Calcium Urine Creatinine Coronavirus (PCR) Crossmatch 02/06/21 02/07/21 02/07/21 Unknown 01:21 04:00 WBC 12.0 H RBC 2.61 L Hgb 8.2 L Hct 24.5 L MCV MCH MCHC RDW Plt Count Lymph % (Auto) 8.9 L Lymph # (Auto) 1.1 L Seg Neutrophils % 86.3 H Seg Neuts % (Manual) Lymphocytes % (Manual) Monocytes % (Manual) Nucleated RBC % Seg Neutrophils # 10.3 H Seg Neutrophils # Man Lymphocytes # (Manual) Monocytes # (Manual) Eosinophils # (Manual) INR D-Dimer ABG pH POC ABG pCO2 POC ABG pO2 ABG pO2 ABG HCO3 ABG O2 Saturation ABG Base Excess ABG Hemoglobin ABG Oxyhemoglobin ABG Sodium ABG Potassium ABG Chloride ABG Glucose Oxyhemoglobin Carboxyhemoglobin Sodium Potassium 3.5 L Chloride Carbon Dioxide BUN 58 H Creatinine 6.6 H Glucose 107 H POC Glucose 173 H Hemoglobin A1c Lactic Acid Calcium 6.7 L Phosphorus 8.00 H D Magnesium Ferritin Total Bilirubin AST ALT Lactate Dehydrogenase C-Reactive Protein Albumin Triglycerides Arterial Blood Glucose Arterial Blood Ionized Calcium Urine Creatinine Coronavirus (PCR) Crossmatch 02/07/21 02/07/21 02/07/21 04:00 04:45 11:49 WBC RBC Hgb Hct MCV MCH MCHC RDW Plt Count Lymph % (Auto) Lymph # (Auto) Seg Neutrophils % Seg Neuts % (Manual) Lymphocytes % (Manual) Monocytes % (Manual) Nucleated RBC % Seg Neutrophils # Seg Neutrophils # Man Lymphocytes # (Manual) Monocytes # (Manual) Eosinophils # (Manual) INR D-Dimer ABG pH 7.287 L POC ABG pCO2 64.8 H POC ABG pO2 74.0 L ABG pO2 ABG HCO3 ABG O2 Saturation ABG Base Excess ABG Hemoglobin 9.1 L ABG Oxyhemoglobin 92.0 L ABG Sodium ABG Potassium 2.8 L ABG Chloride ABG Glucose 226 H Oxyhemoglobin Carboxyhemoglobin Sodium Potassium Chloride Carbon Dioxide BUN Creatinine Glucose POC Glucose 170 H Hemoglobin A1c Lactic Acid Calcium Phosphorus 5.50 H D Magnesium Ferritin Total Bilirubin AST ALT Lactate Dehydrogenase C-Reactive Protein Albumin Triglycerides Arterial Blood Glucose 226 H Arterial Blood Ionized Calcium 3.7 L Urine Creatinine Coronavirus (PCR) Crossmatch 02/07/21 02/07/21 02/07/21 13:48 17:45 23:02 WBC RBC Hgb Hct MCV MCH MCHC RDW Plt Count Lymph % (Auto) Lymph # (Auto) Seg Neutrophils % Seg Neuts % (Manual) Lymphocytes % (Manual) Monocytes % (Manual) Nucleated RBC % Seg Neutrophils # Seg Neutrophils # Man Lymphocytes # (Manual) Monocytes # (Manual) Eosinophils # (Manual) INR D-Dimer ABG pH POC ABG pCO2 POC ABG pO2 ABG pO2 ABG HCO3 ABG O2 Saturation ABG Base Excess ABG Hemoglobin ABG Oxyhemoglobin ABG Sodium ABG Potassium ABG Chloride ABG Glucose Oxyhemoglobin Carboxyhemoglobin Sodium 136 L Potassium 2.6 L* D Chloride 95.1 L Carbon Dioxide 33 H D BUN 30 H Creatinine 3.6 H Glucose 184 H POC Glucose 172 H 172 H Hemoglobin A1c Lactic Acid Calcium 6.9 L Phosphorus Magnesium Ferritin Total Bilirubin AST ALT Lactate Dehydrogenase C-Reactive Protein Albumin Triglycerides Arterial Blood Glucose Arterial Blood Ionized Calcium Urine Creatinine Coronavirus (PCR) Crossmatch 02/08/21 02/08/21 02/08/21 05:22 06:00 06:00 WBC RBC 2.21 L Hgb 7.2 L Hct 21.0 L MCV 95 H MCH MCHC RDW Plt Count Lymph % (Auto) Lymph # (Auto) Seg Neutrophils % Seg Neuts % (Manual) 87.0 H Lymphocytes % (Manual) 4.0 L Monocytes % (Manual) Nucleated RBC % Seg Neutrophils # Seg Neutrophils # Man 8.5 H Lymphocytes # (Manual) 0.4 L Monocytes # (Manual) Eosinophils # (Manual) INR D-Dimer ABG pH POC ABG pCO2 POC ABG pO2 ABG pO2 ABG HCO3 ABG O2 Saturation ABG Base Excess ABG Hemoglobin ABG Oxyhemoglobin ABG Sodium ABG Potassium ABG Chloride ABG Glucose Oxyhemoglobin Carboxyhemoglobin Sodium 136 L Potassium 2.4 L* Chloride 93.1 L Carbon Dioxide 36 H BUN 43 H Creatinine 5.4 H Glucose 167 H POC Glucose 162 H Hemoglobin A1c Lactic Acid Calcium 6.3 L Phosphorus Magnesium Ferritin Total Bilirubin AST ALT Lactate Dehydrogenase C-Reactive Protein Albumin Triglycerides Arterial Blood Glucose Arterial Blood Ionized Calcium Urine Creatinine Coronavirus (PCR) Crossmatch 02/08/21 02/08/21 02/08/21 11:44 17:53 18:56 WBC RBC Hgb Hct MCV MCH MCHC RDW Plt Count Lymph % (Auto) Lymph # (Auto) Seg Neutrophils % Seg Neuts % (Manual) Lymphocytes % (Manual) Monocytes % (Manual) Nucleated RBC % Seg Neutrophils # Seg Neutrophils # Man Lymphocytes # (Manual) Monocytes # (Manual) Eosinophils # (Manual) INR D-Dimer ABG pH POC ABG pCO2 POC ABG pO2 ABG pO2 ABG HCO3 ABG O2 Saturation ABG Base Excess ABG Hemoglobin ABG Oxyhemoglobin ABG Sodium ABG Potassium ABG Chloride ABG Glucose Oxyhemoglobin Carboxyhemoglobin Sodium Potassium 2.9 L* D Chloride Carbon Dioxide BUN Creatinine Glucose POC Glucose 164 H 154 H Hemoglobin A1c Lactic Acid Calcium Phosphorus Magnesium Ferritin Total Bilirubin AST ALT Lactate Dehydrogenase C-Reactive Protein Albumin Triglycerides Arterial Blood Glucose Arterial Blood Ionized Calcium Urine Creatinine Coronavirus (PCR) Crossmatch 02/08/21 02/08/21 02/09/21 23:24 23:58 03:21 WBC RBC Hgb Hct MCV MCH MCHC RDW Plt Count Lymph % (Auto) Lymph # (Auto) Seg Neutrophils % Seg Neuts % (Manual) Lymphocytes % (Manual) Monocytes % (Manual) Nucleated RBC % Seg Neutrophils # Seg Neutrophils # Man Lymphocytes # (Manual) Monocytes # (Manual) Eosinophils # (Manual) INR D-Dimer ABG pH 7.319 L POC ABG pCO2 63.3 H 68.3 H POC ABG pO2 71.2 L 76.5 L ABG pO2 ABG HCO3 ABG O2 Saturation ABG Base Excess ABG Hemoglobin 8.2 L 7.0 L ABG Oxyhemoglobin 91.8 L 92.2 L ABG Sodium 134.6 L 133.0 L ABG Potassium 2.3 L 3.1 L ABG Chloride 96.0 L 95.0 L ABG Glucose 184 H 154 H Oxyhemoglobin Carboxyhemoglobin Sodium Potassium Chloride Carbon Dioxide BUN Creatinine Glucose POC Glucose 152 H Hemoglobin A1c Lactic Acid Calcium Phosphorus Magnesium Ferritin Total Bilirubin AST ALT Lactate Dehydrogenase C-Reactive Protein Albumin Triglycerides Arterial Blood Glucose 184 H 154 H Arterial Blood Ionized Calcium 3.6 L 3.5 L Urine Creatinine Coronavirus (PCR) Crossmatch 02/09/21 02/09/21 02/09/21 05:10 05:10 06:04 WBC RBC 2.14 L Hgb 7.0 L Hct 20.5 L MCV 96 H MCH 33 H MCHC RDW Plt Count Lymph % (Auto) Lymph # (Auto) Seg Neutrophils % Seg Neuts % (Manual) 82.0 H Lymphocytes % (Manual) 9.0 L Monocytes % (Manual) Nucleated RBC % 1.0 H Seg Neutrophils # Seg Neutrophils # Man 8.9 H Lymphocytes # (Manual) 1.0 L Monocytes # (Manual) Eosinophils # (Manual) INR D-Dimer ABG pH POC ABG pCO2 POC ABG pO2 ABG pO2 ABG HCO3 ABG O2 Saturation ABG Base Excess ABG Hemoglobin ABG Oxyhemoglobin ABG Sodium ABG Potassium ABG Chloride ABG Glucose Oxyhemoglobin Carboxyhemoglobin Sodium 135 L Potassium 3.2 L Chloride 91.0 L Carbon Dioxide 32 H BUN 54 H Creatinine 6.6 H Glucose 163 H POC Glucose 149 H Hemoglobin A1c Lactic Acid Calcium 6.2 L Phosphorus Magnesium Ferritin Total Bilirubin AST ALT Lactate Dehydrogenase C-Reactive Protein Albumin Triglycerides Arterial Blood Glucose Arterial Blood Ionized Calcium Urine Creatinine Coronavirus (PCR) Crossmatch 02/09/21 02/09/21 02/09/21 12:02 13:32 13:40 WBC RBC Hgb Hct MCV MCH MCHC RDW Plt Count Lymph % (Auto) Lymph # (Auto) Seg Neutrophils % Seg Neuts % (Manual) Lymphocytes % (Manual) Monocytes % (Manual) Nucleated RBC % Seg Neutrophils # Seg Neutrophils # Man Lymphocytes # (Manual) Monocytes # (Manual) Eosinophils # (Manual) INR D-Dimer ABG pH POC ABG pCO2 POC ABG pO2 ABG pO2 ABG HCO3 ABG O2 Saturation ABG Base Excess ABG Hemoglobin ABG Oxyhemoglobin ABG Sodium ABG Potassium ABG Chloride ABG Glucose Oxyhemoglobin Carboxyhemoglobin Sodium Potassium Chloride Carbon Dioxide BUN Creatinine Glucose POC Glucose 147 H Hemoglobin A1c Lactic Acid Calcium Phosphorus Magnesium Ferritin Total Bilirubin AST ALT Lactate Dehydrogenase C-Reactive Protein Albumin Triglycerides 250 H Arterial Blood Glucose Arterial Blood Ionized Calcium Urine Creatinine Coronavirus (PCR) Crossmatch See Detail 02/09/21 02/09/21 02/10/21 18:06 23:42 04:00 WBC RBC Hgb Hct MCV MCH MCHC RDW Plt Count Lymph % (Auto) Lymph # (Auto) Seg Neutrophils % Seg Neuts % (Manual) Lymphocytes % (Manual) Monocytes % (Manual) Nucleated RBC % Seg Neutrophils # Seg Neutrophils # Man Lymphocytes # (Manual) Monocytes # (Manual) Eosinophils # (Manual) INR D-Dimer ABG pH POC ABG pCO2 65.8 H POC ABG pO2 68.0 L ABG pO2 ABG HCO3 ABG O2 Saturation ABG Base Excess ABG Hemoglobin 8.3 L ABG Oxyhemoglobin ABG Sodium 132.4 L ABG Potassium 2.9 L ABG Chloride 92.0 L ABG Glucose 174 H Oxyhemoglobin Carboxyhemoglobin Sodium Potassium Chloride Carbon Dioxide BUN Creatinine Glucose POC Glucose 152 H 147 H Hemoglobin A1c Lactic Acid Calcium Phosphorus Magnesium Ferritin Total Bilirubin AST ALT Lactate Dehydrogenase C-Reactive Protein Albumin Triglycerides Arterial Blood Glucose 174 H Arterial Blood Ionized Calcium 3.4 L Urine Creatinine Coronavirus (PCR) Crossmatch 02/10/21 02/10/21 02/10/21 05:32 11:29 14:08 WBC 12.5 H RBC 2.14 L Hgb 6.6 L Hct 20.2 L MCV MCH MCHC RDW Plt Count Lymph % (Auto) Lymph # (Auto) Seg Neutrophils % Seg Neuts % (Manual) Lymphocytes % (Manual) Monocytes % (Manual) Nucleated RBC % Seg Neutrophils # Seg Neutrophils # Man Lymphocytes # (Manual) Monocytes # (Manual) Eosinophils # (Manual) INR D-Dimer ABG pH POC ABG pCO2 POC ABG pO2 ABG pO2 ABG HCO3 ABG O2 Saturation ABG Base Excess ABG Hemoglobin ABG Oxyhemoglobin ABG Sodium ABG Potassium ABG Chloride ABG Glucose Oxyhemoglobin Carboxyhemoglobin Sodium Potassium Chloride Carbon Dioxide BUN Creatinine Glucose POC Glucose 167 H 147 H Hemoglobin A1c Lactic Acid Calcium Phosphorus Magnesium Ferritin Total Bilirubin AST ALT Lactate Dehydrogenase C-Reactive Protein Albumin Triglycerides Arterial Blood Glucose Arterial Blood Ionized Calcium Urine Creatinine Coronavirus (PCR) Crossmatch 02/10/21 02/10/21 02/10/21 14:08 18:11 22:32 WBC RBC Hgb 6.4 L Hct 19.1 L* MCV MCH MCHC RDW Plt Count Lymph % (Auto) Lymph # (Auto) Seg Neutrophils % Seg Neuts % (Manual) Lymphocytes % (Manual) Monocytes % (Manual) Nucleated RBC % Seg Neutrophils # Seg Neutrophils # Man Lymphocytes # (Manual) Monocytes # (Manual) Eosinophils # (Manual) INR D-Dimer ABG pH POC ABG pCO2 POC ABG pO2 ABG pO2 ABG HCO3 ABG O2 Saturation ABG Base Excess ABG Hemoglobin ABG Oxyhemoglobin ABG Sodium ABG Potassium ABG Chloride ABG Glucose Oxyhemoglobin Carboxyhemoglobin Sodium 136 L Potassium 2.9 L* Chloride 90.2 L Carbon Dioxide 33 H BUN 42 H Creatinine 7.5 H Glucose 155 H POC Glucose 173 H Hemoglobin A1c Lactic Acid Calcium 6.1 L Phosphorus Magnesium Ferritin Total Bilirubin AST ALT Lactate Dehydrogenase C-Reactive Protein Albumin Triglycerides Arterial Blood Glucose Arterial Blood Ionized Calcium Urine Creatinine Coronavirus (PCR) Crossmatch 02/11/21 02/11/21 02/11/21 00:28 04:05 04:30 WBC RBC Hgb Hct MCV MCH MCHC RDW Plt Count Lymph % (Auto) Lymph # (Auto) Seg Neutrophils % Seg Neuts % (Manual) Lymphocytes % (Manual) Monocytes % (Manual) Nucleated RBC % Seg Neutrophils # Seg Neutrophils # Man Lymphocytes # (Manual) Monocytes # (Manual) Eosinophils # (Manual) INR D-Dimer ABG pH 7.307 L POC ABG pCO2 72.2 H POC ABG pO2 72.3 L ABG pO2 ABG HCO3 ABG O2 Saturation ABG Base Excess ABG Hemoglobin 8.2 L ABG Oxyhemoglobin ABG Sodium 132.3 L ABG Potassium 3.2 L ABG Chloride 91.0 L ABG Glucose 197 H Oxyhemoglobin Carboxyhemoglobin Sodium 135 L Potassium 3.3 L Chloride 87.1 L Carbon Dioxide 36 H BUN 71 H Creatinine 7.9 H Glucose 263 H POC Glucose 192 H Hemoglobin A1c Lactic Acid Calcium 6.2 L Phosphorus Magnesium Ferritin Total Bilirubin AST ALT Lactate Dehydrogenase C-Reactive Protein Albumin Triglycerides Arterial Blood Glucose 197 H Arterial Blood Ionized Calcium 3.3 L Urine Creatinine Coronavirus (PCR) Crossmatch 02/11/21 02/11/21 02/11/21 04:30 05:47 08:27 WBC RBC 2.22 L Hgb 7.2 L Hct 21.0 L MCV MCH MCHC RDW Plt Count Lymph % (Auto) 8.7 L Lymph # (Auto) 0.9 L Seg Neutrophils % 85.5 H Seg Neuts % (Manual) Lymphocytes % (Manual) Monocytes % (Manual) Nucleated RBC % Seg Neutrophils # 9.2 H Seg Neutrophils # Man Lymphocytes # (Manual) Monocytes # (Manual) Eosinophils # (Manual) INR 1.17 H D-Dimer 1930.92 H ABG pH POC ABG pCO2 POC ABG pO2 ABG pO2 ABG HCO3 ABG O2 Saturation ABG Base Excess ABG Hemoglobin ABG Oxyhemoglobin ABG Sodium ABG Potassium ABG Chloride ABG Glucose Oxyhemoglobin Carboxyhemoglobin Sodium Potassium Chloride Carbon Dioxide BUN Creatinine Glucose POC Glucose 189 H Hemoglobin A1c Lactic Acid Calcium Phosphorus Magnesium Ferritin Total Bilirubin AST ALT Lactate Dehydrogenase C-Reactive Protein Albumin Triglycerides Arterial Blood Glucose Arterial Blood Ionized Calcium Urine Creatinine Coronavirus (PCR) Crossmatch 02/11/21 02/11/21 02/11/21 09:00 09:00 13:18 WBC RBC Hgb Hct MCV MCH MCHC RDW Plt Count Lymph % (Auto) Lymph # (Auto) Seg Neutrophils % Seg Neuts % (Manual) Lymphocytes % (Manual) Monocytes % (Manual) Nucleated RBC % Seg Neutrophils # Seg Neutrophils # Man Lymphocytes # (Manual) Monocytes # (Manual) Eosinophils # (Manual) INR D-Dimer ABG pH POC ABG pCO2 POC ABG pO2 ABG pO2 ABG HCO3 ABG O2 Saturation ABG Base Excess ABG Hemoglobin ABG Oxyhemoglobin ABG Sodium ABG Potassium ABG Chloride ABG Glucose Oxyhemoglobin Carboxyhemoglobin Sodium Potassium Chloride Carbon Dioxide BUN Creatinine Glucose 126 H POC Glucose 160 H Hemoglobin A1c Lactic Acid Calcium Phosphorus Magnesium Ferritin 1253.0 H Total Bilirubin AST ALT Lactate Dehydrogenase 649 H C-Reactive Protein 12.60 H Albumin Triglycerides Arterial Blood Glucose Arterial Blood Ionized Calcium Urine Creatinine Coronavirus (PCR) Crossmatch 02/11/21 02/11/21 02/11/21 14:30 16:59 22:34 WBC RBC Hgb 7.1 L 6.7 L Hct 20.5 L 19.9 L* MCV MCH MCHC RDW Plt Count Lymph % (Auto) Lymph # (Auto) Seg Neutrophils % Seg Neuts % (Manual) Lymphocytes % (Manual) Monocytes % (Manual) Nucleated RBC % Seg Neutrophils # Seg Neutrophils # Man Lymphocytes # (Manual) Monocytes # (Manual) Eosinophils # (Manual) INR D-Dimer ABG pH POC ABG pCO2 POC ABG pO2 ABG pO2 ABG HCO3 ABG O2 Saturation ABG Base Excess ABG Hemoglobin ABG Oxyhemoglobin ABG Sodium ABG Potassium ABG Chloride ABG Glucose Oxyhemoglobin Carboxyhemoglobin Sodium Potassium Chloride Carbon Dioxide BUN Creatinine Glucose POC Glucose 151 H Hemoglobin A1c Lactic Acid Calcium Phosphorus Magnesium Ferritin Total Bilirubin AST ALT Lactate Dehydrogenase C-Reactive Protein Albumin Triglycerides Arterial Blood Glucose Arterial Blood Ionized Calcium Urine Creatinine Coronavirus (PCR) Crossmatch 02/11/21 02/12/21 02/12/21 23:42 04:41 05:19 WBC RBC Hgb Hct MCV MCH MCHC RDW Plt Count Lymph % (Auto) Lymph # (Auto) Seg Neutrophils % Seg Neuts % (Manual) Lymphocytes % (Manual) Monocytes % (Manual) Nucleated RBC % Seg Neutrophils # Seg Neutrophils # Man Lymphocytes # (Manual) Monocytes # (Manual) Eosinophils # (Manual) INR D-Dimer ABG pH POC ABG pCO2 POC ABG pO2 ABG pO2 69.0 L ABG HCO3 32.5 H ABG O2 Saturation ABG Base Excess 7.7 H ABG Hemoglobin 5.1 L ABG Oxyhemoglobin ABG Sodium ABG Potassium ABG Chloride ABG Glucose Oxyhemoglobin 94.7 L Carboxyhemoglobin Sodium Potassium Chloride Carbon Dioxide BUN Creatinine Glucose POC Glucose 165 H 153 H Hemoglobin A1c Lactic Acid Calcium Phosphorus Magnesium Ferritin Total Bilirubin AST ALT Lactate Dehydrogenase C-Reactive Protein Albumin Triglycerides Arterial Blood Glucose Arterial Blood Ionized Calcium Urine Creatinine Coronavirus (PCR) Crossmatch 02/12/21 02/12/21 02/12/21 06:35 06:35 08:40 WBC RBC 2.21 L Hgb 7.2 L Hct 20.7 L MCV MCH 33 H MCHC 35 H RDW Plt Count Lymph % (Auto) Lymph # (Auto) Seg Neutrophils % Seg Neuts % (Manual) Lymphocytes % (Manual) Monocytes % (Manual) Nucleated RBC % Seg Neutrophils # Seg Neutrophils # Man Lymphocytes # (Manual) Monocytes # (Manual) Eosinophils # (Manual) INR D-Dimer ABG pH POC ABG pCO2 POC ABG pO2 ABG pO2 ABG HCO3 ABG O2 Saturation ABG Base Excess ABG Hemoglobin ABG Oxyhemoglobin ABG Sodium ABG Potassium ABG Chloride ABG Glucose Oxyhemoglobin Carboxyhemoglobin Sodium 135 L Potassium 3.4 L Chloride 91.8 L Carbon Dioxide 36 H BUN 57 H Creatinine 6.8 H Glucose 163 H POC Glucose Hemoglobin A1c Lactic Acid Calcium 7.0 L Phosphorus Magnesium 1.60 L Ferritin Total Bilirubin AST ALT Lactate Dehydrogenase C-Reactive Protein Albumin Triglycerides Arterial Blood Glucose Arterial Blood Ionized Calcium Urine Creatinine Coronavirus (PCR) Crossmatch 02/12/21 02/12/21 02/12/21 10:45 12:04 17:19 WBC RBC Hgb Hct MCV MCH MCHC RDW Plt Count Lymph % (Auto) Lymph # (Auto) Seg Neutrophils % Seg Neuts % (Manual) Lymphocytes % (Manual) Monocytes % (Manual) Nucleated RBC % Seg Neutrophils # Seg Neutrophils # Man Lymphocytes # (Manual) Monocytes # (Manual) Eosinophils # (Manual) INR D-Dimer ABG pH POC ABG pCO2 POC ABG pO2 ABG pO2 ABG HCO3 ABG O2 Saturation ABG Base Excess ABG Hemoglobin ABG Oxyhemoglobin ABG Sodium ABG Potassium ABG Chloride ABG Glucose Oxyhemoglobin Carboxyhemoglobin Sodium Potassium Chloride Carbon Dioxide BUN Creatinine Glucose POC Glucose 165 H 165 H Hemoglobin A1c Lactic Acid Calcium Phosphorus Magnesium Ferritin Total Bilirubin AST ALT Lactate Dehydrogenase C-Reactive Protein Albumin Triglycerides 182 H Arterial Blood Glucose Arterial Blood Ionized Calcium Urine Creatinine Coronavirus (PCR) Crossmatch 02/12/21 02/13/21 02/13/21 23:18 05:00 05:36 WBC RBC Hgb Hct MCV MCH MCHC RDW Plt Count Lymph % (Auto) Lymph # (Auto) Seg Neutrophils % Seg Neuts % (Manual) Lymphocytes % (Manual) Monocytes % (Manual) Nucleated RBC % Seg Neutrophils # Seg Neutrophils # Man Lymphocytes # (Manual) Monocytes # (Manual) Eosinophils # (Manual) INR D-Dimer ABG pH POC ABG pCO2 60.8 H POC ABG pO2 76.4 L ABG pO2 ABG HCO3 ABG O2 Saturation ABG Base Excess ABG Hemoglobin 7.4 L ABG Oxyhemoglobin ABG Sodium 133.2 L ABG Potassium 3.3 L ABG Chloride 96.0 L ABG Glucose 168 H Oxyhemoglobin Carboxyhemoglobin Sodium Potassium Chloride Carbon Dioxide BUN Creatinine Glucose POC Glucose 163 H 151 H Hemoglobin A1c Lactic Acid Calcium Phosphorus Magnesium Ferritin Total Bilirubin AST ALT Lactate Dehydrogenase C-Reactive Protein Albumin Triglycerides Arterial Blood Glucose 168 H Arterial Blood Ionized Calcium 4.3 L Urine Creatinine Coronavirus (PCR) Crossmatch 02/13/21 02/13/21 02/13/21 06:40 06:40 06:40 WBC RBC 2.19 L Hgb 7.0 L Hct 20.8 L MCV 95 H MCH MCHC RDW Plt Count Lymph % (Auto) Lymph # (Auto) Seg Neutrophils % Seg Neuts % (Manual) Lymphocytes % (Manual) Monocytes % (Manual) Nucleated RBC % Seg Neutrophils # Seg Neutrophils # Man Lymphocytes # (Manual) Monocytes # (Manual) Eosinophils # (Manual) INR D-Dimer ABG pH POC ABG pCO2 POC ABG pO2 ABG pO2 ABG HCO3 ABG O2 Saturation ABG Base Excess ABG Hemoglobin ABG Oxyhemoglobin ABG Sodium ABG Potassium ABG Chloride ABG Glucose Oxyhemoglobin Carboxyhemoglobin Sodium 135 L Potassium 3.4 L Chloride 93.0 L Carbon Dioxide 32 H BUN 46 H Creatinine 5.8 H Glucose 148 H POC Glucose Hemoglobin A1c Lactic Acid Calcium 7.9 L Phosphorus Magnesium Ferritin Total Bilirubin AST ALT Lactate Dehydrogenase C-Reactive Protein 16.80 H Albumin Triglycerides Arterial Blood Glucose Arterial Blood Ionized Calcium Urine Creatinine Coronavirus (PCR) Crossmatch 02/13/21 02/13/21 02/13/21 06:40 07:38 07:38 WBC RBC Hgb Hct MCV MCH MCHC RDW Plt Count Lymph % (Auto) Lymph # (Auto) Seg Neutrophils % Seg Neuts % (Manual) Lymphocytes % (Manual) Monocytes % (Manual) Nucleated RBC % Seg Neutrophils # Seg Neutrophils # Man Lymphocytes # (Manual) Monocytes # (Manual) Eosinophils # (Manual) INR D-Dimer 1722.16 H ABG pH POC ABG pCO2 POC ABG pO2 ABG pO2 ABG HCO3 ABG O2 Saturation ABG Base Excess ABG Hemoglobin ABG Oxyhemoglobin ABG Sodium ABG Potassium ABG Chloride ABG Glucose Oxyhemoglobin Carboxyhemoglobin Sodium Potassium Chloride Carbon Dioxide BUN Creatinine Glucose POC Glucose Hemoglobin A1c Lactic Acid Calcium Phosphorus Magnesium 1.60 L Ferritin 976.5 H Total Bilirubin AST ALT Lactate Dehydrogenase C-Reactive Protein Albumin Triglycerides Arterial Blood Glucose Arterial Blood Ionized Calcium Urine Creatinine Coronavirus (PCR) Crossmatch 02/13/21 02/13/21 02/13/21 12:24 16:57 23:32 WBC RBC Hgb Hct MCV MCH MCHC RDW Plt Count Lymph % (Auto) Lymph # (Auto) Seg Neutrophils % Seg Neuts % (Manual) Lymphocytes % (Manual) Monocytes % (Manual) Nucleated RBC % Seg Neutrophils # Seg Neutrophils # Man Lymphocytes # (Manual) Monocytes # (Manual) Eosinophils # (Manual) INR D-Dimer ABG pH POC ABG pCO2 POC ABG pO2 ABG pO2 ABG HCO3 ABG O2 Saturation ABG Base Excess ABG Hemoglobin ABG Oxyhemoglobin ABG Sodium ABG Potassium ABG Chloride ABG Glucose Oxyhemoglobin Carboxyhemoglobin Sodium Potassium Chloride Carbon Dioxide BUN Creatinine Glucose POC Glucose 141 H 156 H 161 H Hemoglobin A1c Lactic Acid Calcium Phosphorus Magnesium Ferritin Total Bilirubin AST ALT Lactate Dehydrogenase C-Reactive Protein Albumin Triglycerides Arterial Blood Glucose Arterial Blood Ionized Calcium Urine Creatinine Coronavirus (PCR) Crossmatch 02/14/21 02/14/21 02/14/21 04:00 05:41 11:00 WBC RBC 2.14 L Hgb 6.9 L Hct 20.7 L MCV 97 H MCH 33 H MCHC RDW Plt Count Lymph % (Auto) Lymph # (Auto) Seg Neutrophils % Seg Neuts % (Manual) Lymphocytes % (Manual) Monocytes % (Manual) Nucleated RBC % Seg Neutrophils # Seg Neutrophils # Man Lymphocytes # (Manual) Monocytes # (Manual) Eosinophils # (Manual) INR D-Dimer ABG pH POC ABG pCO2 POC ABG pO2 ABG pO2 ABG HCO3 ABG O2 Saturation ABG Base Excess ABG Hemoglobin ABG Oxyhemoglobin ABG Sodium ABG Potassium ABG Chloride ABG Glucose Oxyhemoglobin Carboxyhemoglobin Sodium Potassium Chloride Carbon Dioxide BUN Creatinine Glucose POC Glucose 143 H Hemoglobin A1c Lactic Acid Calcium Phosphorus Magnesium Ferritin Total Bilirubin AST ALT Lactate Dehydrogenase C-Reactive Protein Albumin Triglycerides Arterial Blood Glucose Arterial Blood Ionized Calcium Urine Creatinine Coronavirus (PCR) Crossmatch See Detail 02/14/21 02/14/21 02/14/21 11:51 18:08 23:41 WBC RBC Hgb Hct MCV MCH MCHC RDW Plt Count Lymph % (Auto) Lymph # (Auto) Seg Neutrophils % Seg Neuts % (Manual) Lymphocytes % (Manual) Monocytes % (Manual) Nucleated RBC % Seg Neutrophils # Seg Neutrophils # Man Lymphocytes # (Manual) Monocytes # (Manual) Eosinophils # (Manual) INR D-Dimer ABG pH POC ABG pCO2 POC ABG pO2 ABG pO2 ABG HCO3 ABG O2 Saturation ABG Base Excess ABG Hemoglobin ABG Oxyhemoglobin ABG Sodium ABG Potassium ABG Chloride ABG Glucose Oxyhemoglobin Carboxyhemoglobin Sodium Potassium Chloride Carbon Dioxide BUN Creatinine Glucose POC Glucose 113 H 123 H 120 H Hemoglobin A1c Lactic Acid Calcium Phosphorus Magnesium Ferritin Total Bilirubin AST ALT Lactate Dehydrogenase C-Reactive Protein Albumin Triglycerides Arterial Blood Glucose Arterial Blood Ionized Calcium Urine Creatinine Coronavirus (PCR) Crossmatch 02/14/21 02/15/21 02/15/21 Unknown 05:00 05:00 WBC RBC Hgb Hct MCV MCH MCHC RDW Plt Count Lymph % (Auto) Lymph # (Auto) Seg Neutrophils % Seg Neuts % (Manual) Lymphocytes % (Manual) Monocytes % (Manual) Nucleated RBC % Seg Neutrophils # Seg Neutrophils # Man Lymphocytes # (Manual) Monocytes # (Manual) Eosinophils # (Manual) INR D-Dimer ABG pH POC ABG pCO2 53.4 H POC ABG pO2 61.8 L ABG pO2 ABG HCO3 ABG O2 Saturation ABG Base Excess ABG Hemoglobin 7.7 L ABG Oxyhemoglobin 88.8 L ABG Sodium ABG Potassium ABG Chloride ABG Glucose 143 H Oxyhemoglobin Carboxyhemoglobin 1.6 H Sodium Potassium Chloride 96.9 L Carbon Dioxide 33 H 31 H BUN 40 H 38 H Creatinine 5.2 H 4.8 H Glucose 152 H 132 H POC Glucose Hemoglobin A1c Lactic Acid Calcium 7.9 L Phosphorus Magnesium Ferritin Total Bilirubin AST ALT Lactate Dehydrogenase C-Reactive Protein Albumin Triglycerides Arterial Blood Glucose 143 H Arterial Blood Ionized Calcium Urine Creatinine Coronavirus (PCR) Crossmatch 02/15/21 02/15/21 02/15/21 05:00 05:27 12:05 WBC RBC 2.30 L Hgb 7.1 L Hct 22.1 L MCV 96 H MCH MCHC RDW 15.7 H Plt Count Lymph % (Auto) 11.0 L Lymph # (Auto) 1.1 L Seg Neutrophils % 83.0 H Seg Neuts % (Manual) Lymphocytes % (Manual) Monocytes % (Manual) Nucleated RBC % Seg Neutrophils # 8.6 H Seg Neutrophils # Man Lymphocytes # (Manual) Monocytes # (Manual) Eosinophils # (Manual) INR D-Dimer ABG pH POC ABG pCO2 POC ABG pO2 ABG pO2 ABG HCO3 ABG O2 Saturation ABG Base Excess ABG Hemoglobin ABG Oxyhemoglobin ABG Sodium ABG Potassium ABG Chloride ABG Glucose Oxyhemoglobin Carboxyhemoglobin Sodium Potassium Chloride Carbon Dioxide BUN Creatinine Glucose POC Glucose 133 H 123 H Hemoglobin A1c Lactic Acid Calcium Phosphorus Magnesium Ferritin Total Bilirubin AST ALT Lactate Dehydrogenase C-Reactive Protein Albumin Triglycerides Arterial Blood Glucose Arterial Blood Ionized Calcium Urine Creatinine Coronavirus (PCR) Crossmatch 02/15/21 02/15/21 02/16/21 17:08 23:52 03:44 WBC RBC Hgb Hct MCV MCH MCHC RDW Plt Count Lymph % (Auto) Lymph # (Auto) Seg Neutrophils % Seg Neuts % (Manual) Lymphocytes % (Manual) Monocytes % (Manual) Nucleated RBC % Seg Neutrophils # Seg Neutrophils # Man Lymphocytes # (Manual) Monocytes # (Manual) Eosinophils # (Manual) INR D-Dimer ABG pH 7.307 L POC ABG pCO2 59.5 H POC ABG pO2 63.2 L ABG pO2 ABG HCO3 ABG O2 Saturation ABG Base Excess ABG Hemoglobin 9.3 L ABG Oxyhemoglobin ABG Sodium ABG Potassium ABG Chloride ABG Glucose 148 H Oxyhemoglobin Carboxyhemoglobin Sodium Potassium Chloride Carbon Dioxide BUN Creatinine Glucose POC Glucose 129 H 136 H Hemoglobin A1c Lactic Acid Calcium Phosphorus Magnesium Ferritin Total Bilirubin AST ALT Lactate Dehydrogenase C-Reactive Protein Albumin Triglycerides Arterial Blood Glucose 148 H Arterial Blood Ionized Calcium Urine Creatinine Coronavirus (PCR) Crossmatch 02/16/21 02/16/21 02/16/21 05:26 06:00 12:14 WBC RBC Hgb Hct MCV MCH MCHC RDW Plt Count Lymph % (Auto) Lymph # (Auto) Seg Neutrophils % Seg Neuts % (Manual) Lymphocytes % (Manual) Monocytes % (Manual) Nucleated RBC % Seg Neutrophils # Seg Neutrophils # Man Lymphocytes # (Manual) Monocytes # (Manual) Eosinophils # (Manual) INR D-Dimer ABG pH POC ABG pCO2 POC ABG pO2 ABG pO2 ABG HCO3 ABG O2 Saturation ABG Base Excess ABG Hemoglobin ABG Oxyhemoglobin ABG Sodium ABG Potassium ABG Chloride ABG Glucose Oxyhemoglobin Carboxyhemoglobin Sodium Potassium Chloride Carbon Dioxide BUN 52 H Creatinine 6.0 H Glucose 138 H POC Glucose 135 H 128 H Hemoglobin A1c Lactic Acid Calcium Phosphorus Magnesium Ferritin Total Bilirubin AST ALT Lactate Dehydrogenase C-Reactive Protein Albumin Triglycerides Arterial Blood Glucose Arterial Blood Ionized Calcium Urine Creatinine Coronavirus (PCR) Crossmatch 02/16/21 02/16/21 02/16/21 17:09 17:09 17:09 WBC RBC Hgb Hct MCV MCH MCHC RDW Plt Count Lymph % (Auto) Lymph # (Auto) Seg Neutrophils % Seg Neuts % (Manual) Lymphocytes % (Manual) Monocytes % (Manual) Nucleated RBC % Seg Neutrophils # Seg Neutrophils # Man Lymphocytes # (Manual) Monocytes # (Manual) Eosinophils # (Manual) INR D-Dimer 4256.08 H ABG pH POC ABG pCO2 POC ABG pO2 ABG pO2 ABG HCO3 ABG O2 Saturation ABG Base Excess ABG Hemoglobin ABG Oxyhemoglobin ABG Sodium ABG Potassium ABG Chloride ABG Glucose Oxyhemoglobin Carboxyhemoglobin Sodium Potassium Chloride Carbon Dioxide BUN Creatinine Glucose POC Glucose Hemoglobin A1c Lactic Acid Calcium Phosphorus Magnesium Ferritin 980.6 H Total Bilirubin AST ALT Lactate Dehydrogenase 441 H C-Reactive Protein 20.20 H Albumin Triglycerides Arterial Blood Glucose Arterial Blood Ionized Calcium Urine Creatinine Coronavirus (PCR) Crossmatch 02/16/21 02/16/21 02/16/21 17:25 23:16 Unknown WBC RBC 2.19 L Hgb 7.1 L Hct 21.3 L MCV 98 H MCH 33 H MCHC RDW 16.0 H Plt Count Lymph % (Auto) Lymph # (Auto) Seg Neutrophils % Seg Neuts % (Manual) 85.0 H Lymphocytes % (Manual) 6.0 L Monocytes % (Manual) Nucleated RBC % 4.0 H Seg Neutrophils # Seg Neutrophils # Man Lymphocytes # (Manual) 0.5 L Monocytes # (Manual) Eosinophils # (Manual) INR D-Dimer ABG pH POC ABG pCO2 POC ABG pO2 ABG pO2 ABG HCO3 ABG O2 Saturation ABG Base Excess ABG Hemoglobin ABG Oxyhemoglobin ABG Sodium ABG Potassium ABG Chloride ABG Glucose Oxyhemoglobin Carboxyhemoglobin Sodium Potassium Chloride Carbon Dioxide BUN Creatinine Glucose POC Glucose 146 H 150 H Hemoglobin A1c Lactic Acid Calcium Phosphorus Magnesium Ferritin Total Bilirubin AST ALT Lactate Dehydrogenase C-Reactive Protein Albumin Triglycerides Arterial Blood Glucose Arterial Blood Ionized Calcium Urine Creatinine Coronavirus (PCR) Crossmatch 02/17/21 02/17/21 02/17/21 04:00 04:14 04:14 WBC RBC Hgb Hct MCV MCH MCHC RDW Plt Count Lymph % (Auto) Lymph # (Auto) Seg Neutrophils % Seg Neuts % (Manual) Lymphocytes % (Manual) Monocytes % (Manual) Nucleated RBC % Seg Neutrophils # Seg Neutrophils # Man Lymphocytes # (Manual) Monocytes # (Manual) Eosinophils # (Manual) INR D-Dimer 3183.35 H ABG pH 7.293 L POC ABG pCO2 59.5 H POC ABG pO2 68.1 L ABG pO2 ABG HCO3 ABG O2 Saturation ABG Base Excess ABG Hemoglobin 7.7 L ABG Oxyhemoglobin ABG Sodium 133.4 L ABG Potassium ABG Chloride ABG Glucose 143 H Oxyhemoglobin Carboxyhemoglobin Sodium 136 L Potassium Chloride 97.3 L Carbon Dioxide BUN 49 H Creatinine 5.3 H Glucose 139 H POC Glucose Hemoglobin A1c Lactic Acid Calcium Phosphorus Magnesium Ferritin Total Bilirubin AST ALT Lactate Dehydrogenase C-Reactive Protein Albumin Triglycerides Arterial Blood Glucose 143 H Arterial Blood Ionized Calcium Urine Creatinine Coronavirus (PCR) Crossmatch 02/17/21 02/17/21 02/17/21 04:14 04:14 04:14 WBC RBC 2.14 L Hgb 6.9 L Hct 21.0 L MCV 98 H MCH MCHC RDW 15.8 H Plt Count Lymph % (Auto) Lymph # (Auto) Seg Neutrophils % Seg Neuts % (Manual) Lymphocytes % (Manual) Monocytes % (Manual) Nucleated RBC % Seg Neutrophils # Seg Neutrophils # Man Lymphocytes # (Manual) Monocytes # (Manual) Eosinophils # (Manual) INR D-Dimer ABG pH POC ABG pCO2 POC ABG pO2 ABG pO2 ABG HCO3 ABG O2 Saturation ABG Base Excess ABG Hemoglobin ABG Oxyhemoglobin ABG Sodium ABG Potassium ABG Chloride ABG Glucose Oxyhemoglobin Carboxyhemoglobin Sodium Potassium Chloride Carbon Dioxide BUN Creatinine Glucose POC Glucose Hemoglobin A1c Lactic Acid Calcium Phosphorus Magnesium Ferritin 894.0 H Total Bilirubin AST ALT Lactate Dehydrogenase 399 H C-Reactive Protein 22.10 H Albumin Triglycerides Arterial Blood Glucose Arterial Blood Ionized Calcium Urine Creatinine Coronavirus (PCR) Crossmatch 02/17/21 02/17/21 02/17/21 06:06 07:45 12:25 WBC RBC Hgb 7.6 L Hct 22.8 L MCV MCH MCHC RDW Plt Count Lymph % (Auto) Lymph # (Auto) Seg Neutrophils % Seg Neuts % (Manual) Lymphocytes % (Manual) Monocytes % (Manual) Nucleated RBC % Seg Neutrophils # Seg Neutrophils # Man Lymphocytes # (Manual) Monocytes # (Manual) Eosinophils # (Manual) INR D-Dimer ABG pH POC ABG pCO2 POC ABG pO2 ABG pO2 ABG HCO3 ABG O2 Saturation ABG Base Excess ABG Hemoglobin ABG Oxyhemoglobin ABG Sodium ABG Potassium ABG Chloride ABG Glucose Oxyhemoglobin Carboxyhemoglobin Sodium Potassium Chloride Carbon Dioxide BUN Creatinine Glucose POC Glucose 134 H Hemoglobin A1c Lactic Acid Calcium Phosphorus Magnesium Ferritin Total Bilirubin AST ALT Lactate Dehydrogenase C-Reactive Protein Albumin Triglycerides Arterial Blood Glucose Arterial Blood Ionized Calcium Urine Creatinine Coronavirus (PCR) Crossmatch See Detail 02/17/21 02/17/21 02/17/21 12:35 17:56 23:34 WBC RBC Hgb Hct MCV MCH MCHC RDW Plt Count Lymph % (Auto) Lymph # (Auto) Seg Neutrophils % Seg Neuts % (Manual) Lymphocytes % (Manual) Monocytes % (Manual) Nucleated RBC % Seg Neutrophils # Seg Neutrophils # Man Lymphocytes # (Manual) Monocytes # (Manual) Eosinophils # (Manual) INR D-Dimer ABG pH POC ABG pCO2 POC ABG pO2 ABG pO2 ABG HCO3 ABG O2 Saturation ABG Base Excess ABG Hemoglobin ABG Oxyhemoglobin ABG Sodium ABG Potassium ABG Chloride ABG Glucose Oxyhemoglobin Carboxyhemoglobin Sodium Potassium Chloride Carbon Dioxide BUN Creatinine Glucose POC Glucose 114 H 128 H 120 H Hemoglobin A1c Lactic Acid Calcium Phosphorus Magnesium Ferritin Total Bilirubin AST ALT Lactate Dehydrogenase C-Reactive Protein Albumin Triglycerides Arterial Blood Glucose Arterial Blood Ionized Calcium Urine Creatinine Coronavirus (PCR) Crossmatch 02/18/21 02/18/21 02/18/21 04:03 04:55 05:02 WBC RBC 2.40 L Hgb 7.5 L Hct 23.1 L MCV 96 H MCH MCHC RDW 16.8 H Plt Count Lymph % (Auto) Lymph # (Auto) Seg Neutrophils % Seg Neuts % (Manual) Lymphocytes % (Manual) Monocytes % (Manual) Nucleated RBC % Seg Neutrophils # Seg Neutrophils # Man Lymphocytes # (Manual) Monocytes # (Manual) Eosinophils # (Manual) INR D-Dimer ABG pH 7.219 L POC ABG pCO2 58.7 H POC ABG pO2 64.2 L ABG pO2 ABG HCO3 ABG O2 Saturation ABG Base Excess ABG Hemoglobin ABG Oxyhemoglobin ABG Sodium 130.5 L ABG Potassium ABG Chloride ABG Glucose 147 H Oxyhemoglobin Carboxyhemoglobin Sodium 134 L Potassium Chloride 97.9 L Carbon Dioxide BUN 64 H Creatinine 6.5 H Glucose 135 H POC Glucose Hemoglobin A1c Lactic Acid Calcium 8.0 L Phosphorus Magnesium Ferritin Total Bilirubin AST ALT Lactate Dehydrogenase C-Reactive Protein Albumin Triglycerides Arterial Blood Glucose 147 H Arterial Blood Ionized Calcium Urine Creatinine Coronavirus (PCR) Crossmatch 02/18/21 02/18/21 02/18/21 05:27 10:00 11:51 WBC RBC Hgb Hct MCV MCH MCHC RDW Plt Count Lymph % (Auto) Lymph # (Auto) Seg Neutrophils % Seg Neuts % (Manual) Lymphocytes % (Manual) Monocytes % (Manual) Nucleated RBC % Seg Neutrophils # Seg Neutrophils # Man Lymphocytes # (Manual) Monocytes # (Manual) Eosinophils # (Manual) INR D-Dimer ABG pH POC ABG pCO2 POC ABG pO2 ABG pO2 ABG HCO3 ABG O2 Saturation ABG Base Excess ABG Hemoglobin ABG Oxyhemoglobin ABG Sodium ABG Potassium ABG Chloride ABG Glucose Oxyhemoglobin Carboxyhemoglobin Sodium Potassium Chloride Carbon Dioxide BUN Creatinine Glucose POC Glucose 130 H 123 H Hemoglobin A1c Lactic Acid Calcium Phosphorus Magnesium Ferritin Total Bilirubin AST ALT Lactate Dehydrogenase C-Reactive Protein Albumin Triglycerides Arterial Blood Glucose Arterial Blood Ionized Calcium Urine Creatinine Coronavirus (PCR) Positive A Crossmatch 02/18/21 02/18/21 02/19/21 18:10 23:35 05:00 WBC RBC Hgb Hct MCV MCH MCHC RDW Plt Count Lymph % (Auto) Lymph # (Auto) Seg Neutrophils % Seg Neuts % (Manual) Lymphocytes % (Manual) Monocytes % (Manual) Nucleated RBC % Seg Neutrophils # Seg Neutrophils # Man Lymphocytes # (Manual) Monocytes # (Manual) Eosinophils # (Manual) INR D-Dimer ABG pH 7.232 L POC ABG pCO2 64.3 H POC ABG pO2 ABG pO2 ABG HCO3 ABG O2 Saturation ABG Base Excess ABG Hemoglobin 8.1 L ABG Oxyhemoglobin ABG Sodium 133.5 L ABG Potassium ABG Chloride ABG Glucose 148 H Oxyhemoglobin Carboxyhemoglobin 1.6 H Sodium Potassium Chloride Carbon Dioxide BUN Creatinine Glucose POC Glucose 123 H 137 H Hemoglobin A1c Lactic Acid Calcium Phosphorus Magnesium Ferritin Total Bilirubin AST ALT Lactate Dehydrogenase C-Reactive Protein Albumin Triglycerides Arterial Blood Glucose 148 H Arterial Blood Ionized Calcium Urine Creatinine Coronavirus (PCR) Crossmatch 02/19/21 02/19/21 02/19/21 05:12 05:45 05:45 WBC RBC Hgb Hct MCV MCH MCHC RDW Plt Count Lymph % (Auto) Lymph # (Auto) Seg Neutrophils % Seg Neuts % (Manual) Lymphocytes % (Manual) Monocytes % (Manual) Nucleated RBC % Seg Neutrophils # Seg Neutrophils # Man Lymphocytes # (Manual) Monocytes # (Manual) Eosinophils # (Manual) INR D-Dimer 4840.82 H ABG pH POC ABG pCO2 POC ABG pO2 ABG pO2 ABG HCO3 ABG O2 Saturation ABG Base Excess ABG Hemoglobin ABG Oxyhemoglobin ABG Sodium ABG Potassium ABG Chloride ABG Glucose Oxyhemoglobin Carboxyhemoglobin Sodium 135 L Potassium Chloride 97.8 L Carbon Dioxide BUN 58 H Creatinine 5.6 H Glucose 140 H POC Glucose 134 H Hemoglobin A1c Lactic Acid Calcium Phosphorus Magnesium Ferritin Total Bilirubin AST ALT Lactate Dehydrogenase 345 H C-Reactive Protein 15.20 H Albumin Triglycerides 195 H Arterial Blood Glucose Arterial Blood Ionized Calcium Urine Creatinine Coronavirus (PCR) Crossmatch 02/19/21 02/19/21 02/19/21 05:45 12:00 17:48 WBC RBC Hgb Hct MCV MCH MCHC RDW Plt Count Lymph % (Auto) Lymph # (Auto) Seg Neutrophils % Seg Neuts % (Manual) Lymphocytes % (Manual) Monocytes % (Manual) Nucleated RBC % Seg Neutrophils # Seg Neutrophils # Man Lymphocytes # (Manual) Monocytes # (Manual) Eosinophils # (Manual) INR D-Dimer ABG pH POC ABG pCO2 POC ABG pO2 ABG pO2 ABG HCO3 ABG O2 Saturation ABG Base Excess ABG Hemoglobin ABG Oxyhemoglobin ABG Sodium ABG Potassium ABG Chloride ABG Glucose Oxyhemoglobin Carboxyhemoglobin Sodium Potassium Chloride Carbon Dioxide BUN Creatinine Glucose POC Glucose 122 H 119 H Hemoglobin A1c Lactic Acid Calcium Phosphorus Magnesium Ferritin 951.8 H Total Bilirubin AST ALT Lactate Dehydrogenase C-Reactive Protein Albumin Triglycerides Arterial Blood Glucose Arterial Blood Ionized Calcium Urine Creatinine Coronavirus (PCR) Crossmatch 02/20/21 02/20/21 02/20/21 03:20 04:00 11:48 WBC RBC Hgb Hct MCV MCH MCHC RDW Plt Count Lymph % (Auto) Lymph # (Auto) Seg Neutrophils % Seg Neuts % (Manual) Lymphocytes % (Manual) Monocytes % (Manual) Nucleated RBC % Seg Neutrophils # Seg Neutrophils # Man Lymphocytes # (Manual) Monocytes # (Manual) Eosinophils # (Manual) INR D-Dimer ABG pH 7.276 L POC ABG pCO2 57.3 H POC ABG pO2 71.0 L ABG pO2 ABG HCO3 ABG O2 Saturation ABG Base Excess ABG Hemoglobin 8.2 L ABG Oxyhemoglobin 91.9 L ABG Sodium 128.1 L ABG Potassium 4.8 H ABG Chloride ABG Glucose Oxyhemoglobin Carboxyhemoglobin 1.6 H Sodium 136 L Potassium Chloride Carbon Dioxide BUN 69 H Creatinine 6.4 H Glucose POC Glucose 131 H Hemoglobin A1c Lactic Acid Calcium 8.1 L Phosphorus Magnesium Ferritin Total Bilirubin AST ALT Lactate Dehydrogenase C-Reactive Protein Albumin Triglycerides Arterial Blood Glucose Arterial Blood Ionized Calcium 4.5 L Urine Creatinine Coronavirus (PCR) Crossmatch 02/20/21 02/20/21 02/21/21 18:05 23:28 02:53 WBC RBC Hgb Hct MCV MCH MCHC RDW Plt Count Lymph % (Auto) Lymph # (Auto) Seg Neutrophils % Seg Neuts % (Manual) Lymphocytes % (Manual) Monocytes % (Manual) Nucleated RBC % Seg Neutrophils # Seg Neutrophils # Man Lymphocytes # (Manual) Monocytes # (Manual) Eosinophils # (Manual) INR D-Dimer ABG pH 7.288 L POC ABG pCO2 52.7 H POC ABG pO2 81.5 L ABG pO2 ABG HCO3 ABG O2 Saturation ABG Base Excess ABG Hemoglobin 8.5 L ABG Oxyhemoglobin 93.6 L ABG Sodium 132.5 L ABG Potassium 4.6 H ABG Chloride ABG Glucose 106 H Oxyhemoglobin Carboxyhemoglobin 1.6 H Sodium Potassium Chloride Carbon Dioxide BUN Creatinine Glucose POC Glucose 114 H 118 H Hemoglobin A1c Lactic Acid Calcium Phosphorus Magnesium Ferritin Total Bilirubin AST ALT Lactate Dehydrogenase C-Reactive Protein Albumin Triglycerides Arterial Blood Glucose 106 H Arterial Blood Ionized Calcium 4.4 L Urine Creatinine Coronavirus (PCR) Crossmatch 02/21/21 02/21/21 02/21/21 05:29 11:42 16:35 WBC RBC Hgb Hct MCV MCH MCHC RDW Plt Count Lymph % (Auto) Lymph # (Auto) Seg Neutrophils % Seg Neuts % (Manual) Lymphocytes % (Manual) Monocytes % (Manual) Nucleated RBC % Seg Neutrophils # Seg Neutrophils # Man Lymphocytes # (Manual) Monocytes # (Manual) Eosinophils # (Manual) INR D-Dimer ABG pH POC ABG pCO2 POC ABG pO2 ABG pO2 ABG HCO3 ABG O2 Saturation ABG Base Excess ABG Hemoglobin ABG Oxyhemoglobin ABG Sodium ABG Potassium ABG Chloride ABG Glucose Oxyhemoglobin Carboxyhemoglobin Sodium Potassium 5.6 H Chloride 97.6 L Carbon Dioxide BUN 68 H Creatinine 5.7 H Glucose 160 H POC Glucose 111 H 131 H Hemoglobin A1c Lactic Acid Calcium 8.0 L Phosphorus 7.90 H Magnesium 2.60 H Ferritin Total Bilirubin AST ALT Lactate Dehydrogenase C-Reactive Protein Albumin Triglycerides Arterial Blood Glucose Arterial Blood Ionized Calcium Urine Creatinine Coronavirus (PCR) Crossmatch 02/21/21 02/22/21 02/22/21 17:17 00:04 04:22 WBC RBC Hgb Hct MCV MCH MCHC RDW Plt Count Lymph % (Auto) Lymph # (Auto) Seg Neutrophils % Seg Neuts % (Manual) Lymphocytes % (Manual) Monocytes % (Manual) Nucleated RBC % Seg Neutrophils # Seg Neutrophils # Man Lymphocytes # (Manual) Monocytes # (Manual) Eosinophils # (Manual) INR D-Dimer ABG pH 7.250 L POC ABG pCO2 60.1 H POC ABG pO2 57.6 L ABG pO2 ABG HCO3 ABG O2 Saturation ABG Base Excess ABG Hemoglobin 8.8 L ABG Oxyhemoglobin 87.0 L ABG Sodium 133.4 L ABG Potassium 5.1 H ABG Chloride ABG Glucose 124 H Oxyhemoglobin Carboxyhemoglobin Sodium Potassium Chloride Carbon Dioxide BUN Creatinine Glucose POC Glucose 135 H 121 H Hemoglobin A1c Lactic Acid Calcium Phosphorus Magnesium Ferritin Total Bilirubin AST ALT Lactate Dehydrogenase C-Reactive Protein Albumin Triglycerides Arterial Blood Glucose 124 H Arterial Blood Ionized Calcium Urine Creatinine Coronavirus (PCR) Crossmatch 02/22/21 02/22/21 02/22/21 05:33 09:41 09:41 WBC 13.2 H RBC 2.35 L Hgb 7.5 L Hct 22.7 L MCV 96 H MCH MCHC RDW 17.0 H Plt Count Lymph % (Auto) Lymph # (Auto) Seg Neutrophils % Seg Neuts % (Manual) 93.0 H Lymphocytes % (Manual) 4.0 L Monocytes % (Manual) Nucleated RBC % 1.0 H Seg Neutrophils # Seg Neutrophils # Man 12.3 H Lymphocytes # (Manual) 0.5 L Monocytes # (Manual) Eosinophils # (Manual) INR D-Dimer ABG pH POC ABG pCO2 POC ABG pO2 ABG pO2 ABG HCO3 ABG O2 Saturation ABG Base Excess ABG Hemoglobin ABG Oxyhemoglobin ABG Sodium ABG Potassium ABG Chloride ABG Glucose Oxyhemoglobin Carboxyhemoglobin Sodium Potassium 5.4 H Chloride Carbon Dioxide BUN 61 H Creatinine 5.5 H Glucose 117 H POC Glucose 114 H Hemoglobin A1c Lactic Acid Calcium 8.3 L Phosphorus Magnesium Ferritin Total Bilirubin AST ALT Lactate Dehydrogenase C-Reactive Protein Albumin Triglycerides Arterial Blood Glucose Arterial Blood Ionized Calcium Urine Creatinine Coronavirus (PCR) Crossmatch 02/22/21 02/22/21 02/23/21 12:08 17:06 04:00 WBC RBC Hgb Hct MCV MCH MCHC RDW Plt Count Lymph % (Auto) Lymph # (Auto) Seg Neutrophils % Seg Neuts % (Manual) Lymphocytes % (Manual) Monocytes % (Manual) Nucleated RBC % Seg Neutrophils # Seg Neutrophils # Man Lymphocytes # (Manual) Monocytes # (Manual) Eosinophils # (Manual) INR D-Dimer ABG pH 7.246 L POC ABG pCO2 POC ABG pO2 ABG pO2 119.4 H ABG HCO3 26.6 H ABG O2 Saturation ABG Base Excess ABG Hemoglobin 8.8 L ABG Oxyhemoglobin ABG Sodium ABG Potassium ABG Chloride ABG Glucose Oxyhemoglobin Carboxyhemoglobin Sodium Potassium Chloride Carbon Dioxide BUN Creatinine Glucose POC Glucose 133 H 114 H Hemoglobin A1c Lactic Acid Calcium Phosphorus Magnesium Ferritin Total Bilirubin AST ALT Lactate Dehydrogenase C-Reactive Protein Albumin Triglycerides Arterial Blood Glucose Arterial Blood Ionized Calcium Urine Creatinine Coronavirus (PCR) Crossmatch 02/23/21 02/23/21 02/24/21 06:20 11:42 03:43 WBC RBC Hgb Hct MCV MCH MCHC RDW Plt Count Lymph % (Auto) Lymph # (Auto) Seg Neutrophils % Seg Neuts % (Manual) Lymphocytes % (Manual) Monocytes % (Manual) Nucleated RBC % Seg Neutrophils # Seg Neutrophils # Man Lymphocytes # (Manual) Monocytes # (Manual) Eosinophils # (Manual) INR D-Dimer ABG pH 7.287 L POC ABG pCO2 54.7 H POC ABG pO2 ABG pO2 ABG HCO3 ABG O2 Saturation ABG Base Excess ABG Hemoglobin 8.5 L ABG Oxyhemoglobin ABG Sodium 135.6 L ABG Potassium ABG Chloride ABG Glucose 117 H Oxyhemoglobin Carboxyhemoglobin Sodium Potassium Chloride 97.6 L Carbon Dioxide BUN 79 H Creatinine 6.2 H Glucose POC Glucose 108 H Hemoglobin A1c Lactic Acid Calcium 8.3 L Phosphorus Magnesium Ferritin Total Bilirubin AST ALT Lactate Dehydrogenase C-Reactive Protein Albumin Triglycerides Arterial Blood Glucose 117 H Arterial Blood Ionized Calcium Urine Creatinine Coronavirus (PCR) Crossmatch 02/24/21 02/24/21 02/24/21 04:25 04:25 04:25 WBC 11.5 H RBC 2.47 L Hgb 7.7 L Hct 23.5 L MCV 95 H MCH MCHC RDW 16.7 H Plt Count Lymph % (Auto) Lymph # (Auto) Seg Neutrophils % Seg Neuts % (Manual) 82.0 H Lymphocytes % (Manual) 3.0 L Monocytes % (Manual) 11.0 H Nucleated RBC % Seg Neutrophils # Seg Neutrophils # Man 9.4 H Lymphocytes # (Manual) 0.3 L Monocytes # (Manual) 1.3 H Eosinophils # (Manual) INR D-Dimer 4695.21 H ABG pH POC ABG pCO2 POC ABG pO2 ABG pO2 ABG HCO3 ABG O2 Saturation ABG Base Excess ABG Hemoglobin ABG Oxyhemoglobin ABG Sodium ABG Potassium ABG Chloride ABG Glucose Oxyhemoglobin Carboxyhemoglobin Sodium Potassium Chloride Carbon Dioxide BUN 68 H Creatinine 4.9 H Glucose 113 H POC Glucose Hemoglobin A1c Lactic Acid Calcium Phosphorus Magnesium Ferritin Total Bilirubin AST ALT Lactate Dehydrogenase C-Reactive Protein 7.20 H Albumin Triglycerides Arterial Blood Glucose Arterial Blood Ionized Calcium Urine Creatinine Coronavirus (PCR) Crossmatch 02/24/21 02/24/21 02/24/21 04:25 05:01 11:12 WBC RBC Hgb Hct MCV MCH MCHC RDW Plt Count Lymph % (Auto) Lymph # (Auto) Seg Neutrophils % Seg Neuts % (Manual) Lymphocytes % (Manual) Monocytes % (Manual) Nucleated RBC % Seg Neutrophils # Seg Neutrophils # Man Lymphocytes # (Manual) Monocytes # (Manual) Eosinophils # (Manual) INR D-Dimer ABG pH POC ABG pCO2 POC ABG pO2 ABG pO2 ABG HCO3 ABG O2 Saturation ABG Base Excess ABG Hemoglobin ABG Oxyhemoglobin ABG Sodium ABG Potassium ABG Chloride ABG Glucose Oxyhemoglobin Carboxyhemoglobin Sodium Potassium Chloride Carbon Dioxide BUN Creatinine Glucose POC Glucose 116 H 112 H Hemoglobin A1c Lactic Acid Calcium Phosphorus Magnesium Ferritin 1116.0 H Total Bilirubin AST ALT Lactate Dehydrogenase C-Reactive Protein Albumin Triglycerides Arterial Blood Glucose Arterial Blood Ionized Calcium Urine Creatinine Coronavirus (PCR) Crossmatch 02/24/21 02/25/21 02/25/21 18:11 03:42 05:58 WBC RBC Hgb Hct MCV MCH MCHC RDW Plt Count Lymph % (Auto) Lymph # (Auto) Seg Neutrophils % Seg Neuts % (Manual) Lymphocytes % (Manual) Monocytes % (Manual) Nucleated RBC % Seg Neutrophils # Seg Neutrophils # Man Lymphocytes # (Manual) Monocytes # (Manual) Eosinophils # (Manual) INR D-Dimer ABG pH 7.287 L POC ABG pCO2 58.2 H POC ABG pO2 ABG pO2 ABG HCO3 ABG O2 Saturation ABG Base Excess ABG Hemoglobin 8.4 L ABG Oxyhemoglobin 93.7 L ABG Sodium ABG Potassium ABG Chloride ABG Glucose 104 H Oxyhemoglobin Carboxyhemoglobin Sodium Potassium Chloride Carbon Dioxide BUN Creatinine Glucose POC Glucose 109 H 109 H Hemoglobin A1c Lactic Acid Calcium Phosphorus Magnesium Ferritin Total Bilirubin AST ALT Lactate Dehydrogenase C-Reactive Protein Albumin Triglycerides Arterial Blood Glucose 104 H Arterial Blood Ionized Calcium 4.5 L Urine Creatinine Coronavirus (PCR) Crossmatch 02/25/21 02/25/21 02/25/21 09:03 13:47 16:50 WBC RBC Hgb Hct MCV MCH MCHC RDW Plt Count Lymph % (Auto) Lymph # (Auto) Seg Neutrophils % Seg Neuts % (Manual) Lymphocytes % (Manual) Monocytes % (Manual) Nucleated RBC % Seg Neutrophils # Seg Neutrophils # Man Lymphocytes # (Manual) Monocytes # (Manual) Eosinophils # (Manual) INR D-Dimer 6536.84 H ABG pH POC ABG pCO2 POC ABG pO2 ABG pO2 ABG HCO3 ABG O2 Saturation ABG Base Excess ABG Hemoglobin ABG Oxyhemoglobin ABG Sodium ABG Potassium ABG Chloride ABG Glucose Oxyhemoglobin Carboxyhemoglobin Sodium Potassium Chloride Carbon Dioxide BUN Creatinine Glucose POC Glucose 144 H 114 H Hemoglobin A1c Lactic Acid Calcium Phosphorus Magnesium Ferritin Total Bilirubin AST ALT Lactate Dehydrogenase C-Reactive Protein Albumin Triglycerides Arterial Blood Glucose Arterial Blood Ionized Calcium Urine Creatinine Coronavirus (PCR) Crossmatch 02/25/21 02/26/21 02/26/21 23:53 03:35 05:36 WBC RBC Hgb Hct MCV MCH MCHC RDW Plt Count Lymph % (Auto) Lymph # (Auto) Seg Neutrophils % Seg Neuts % (Manual) Lymphocytes % (Manual) Monocytes % (Manual) Nucleated RBC % Seg Neutrophils # Seg Neutrophils # Man Lymphocytes # (Manual) Monocytes # (Manual) Eosinophils # (Manual) INR D-Dimer ABG pH 7.179 L POC ABG pCO2 76.6 H POC ABG pO2 ABG pO2 ABG HCO3 ABG O2 Saturation ABG Base Excess ABG Hemoglobin 9.0 L ABG Oxyhemoglobin ABG Sodium 134.8 L ABG Potassium ABG Chloride ABG Glucose 118 H Oxyhemoglobin Carboxyhemoglobin Sodium Potassium Chloride Carbon Dioxide BUN Creatinine Glucose POC Glucose 110 H 113 H Hemoglobin A1c Lactic Acid Calcium Phosphorus Magnesium Ferritin Total Bilirubin AST ALT Lactate Dehydrogenase C-Reactive Protein Albumin Triglycerides Arterial Blood Glucose 118 H Arterial Blood Ionized Calcium Urine Creatinine Coronavirus (PCR) Crossmatch 02/26/21 02/26/21 02/26/21 05:48 05:48 05:48 WBC 11.4 H RBC 2.40 L Hgb 7.5 L Hct 23.2 L MCV 97 H MCH MCHC RDW 17.4 H Plt Count Lymph % (Auto) Lymph # (Auto) Seg Neutrophils % Seg Neuts % (Manual) Lymphocytes % (Manual) Monocytes % (Manual) Nucleated RBC % Seg Neutrophils # Seg Neutrophils # Man Lymphocytes # (Manual) Monocytes # (Manual) Eosinophils # (Manual) INR D-Dimer ABG pH POC ABG pCO2 POC ABG pO2 ABG pO2 ABG HCO3 ABG O2 Saturation ABG Base Excess ABG Hemoglobin ABG Oxyhemoglobin ABG Sodium ABG Potassium ABG Chloride ABG Glucose Oxyhemoglobin Carboxyhemoglobin Sodium Potassium Chloride Carbon Dioxide BUN 72 H Creatinine 4.5 H Glucose 112 H POC Glucose Hemoglobin A1c Lactic Acid Calcium 7.7 L Phosphorus Magnesium Ferritin 867.8 H Total Bilirubin AST ALT Lactate Dehydrogenase C-Reactive Protein 5.90 H Albumin Triglycerides Arterial Blood Glucose Arterial Blood Ionized Calcium Urine Creatinine Coronavirus (PCR) Crossmatch 02/26/21 02/26/21 02/26/21 08:00 11:29 18:13 WBC RBC Hgb Hct MCV MCH MCHC RDW Plt Count Lymph % (Auto) Lymph # (Auto) Seg Neutrophils % Seg Neuts % (Manual) Lymphocytes % (Manual) Monocytes % (Manual) Nucleated RBC % Seg Neutrophils # Seg Neutrophils # Man Lymphocytes # (Manual) Monocytes # (Manual) Eosinophils # (Manual) INR D-Dimer ABG pH 7.228 L POC ABG pCO2 70.2 H POC ABG pO2 79.7 L ABG pO2 ABG HCO3 ABG O2 Saturation ABG Base Excess ABG Hemoglobin 7.6 L ABG Oxyhemoglobin 93.2 L ABG Sodium 135.7 L ABG Potassium ABG Chloride ABG Glucose 119 H Oxyhemoglobin Carboxyhemoglobin Sodium Potassium Chloride Carbon Dioxide BUN Creatinine Glucose POC Glucose 110 H 115 H Hemoglobin A1c Lactic Acid Calcium Phosphorus Magnesium Ferritin Total Bilirubin AST ALT Lactate Dehydrogenase C-Reactive Protein Albumin Triglycerides Arterial Blood Glucose 119 H Arterial Blood Ionized Calcium Urine Creatinine Coronavirus (PCR) Crossmatch 02/26/21 02/27/21 02/27/21 23:18 04:00 05:04 WBC RBC Hgb Hct MCV MCH MCHC RDW Plt Count Lymph % (Auto) Lymph # (Auto) Seg Neutrophils % Seg Neuts % (Manual) Lymphocytes % (Manual) Monocytes % (Manual) Nucleated RBC % Seg Neutrophils # Seg Neutrophils # Man Lymphocytes # (Manual) Monocytes # (Manual) Eosinophils # (Manual) INR D-Dimer ABG pH 7.316 L POC ABG pCO2 49.0 H POC ABG pO2 111.2 H ABG pO2 ABG HCO3 ABG O2 Saturation ABG Base Excess ABG Hemoglobin 7.7 L ABG Oxyhemoglobin ABG Sodium 135.0 L ABG Potassium ABG Chloride ABG Glucose 113 H Oxyhemoglobin Carboxyhemoglobin Sodium Potassium Chloride Carbon Dioxide BUN Creatinine Glucose POC Glucose 114 H 112 H Hemoglobin A1c Lactic Acid Calcium Phosphorus Magnesium Ferritin Total Bilirubin AST ALT Lactate Dehydrogenase C-Reactive Protein Albumin Triglycerides Arterial Blood Glucose 113 H Arterial Blood Ionized Calcium 4.4 L Urine Creatinine Coronavirus (PCR) Crossmatch 02/27/21 02/27/21 02/27/21 12:13 18:30 23:40 WBC RBC Hgb Hct MCV MCH MCHC RDW Plt Count Lymph % (Auto) Lymph # (Auto) Seg Neutrophils % Seg Neuts % (Manual) Lymphocytes % (Manual) Monocytes % (Manual) Nucleated RBC % Seg Neutrophils # Seg Neutrophils # Man Lymphocytes # (Manual) Monocytes # (Manual) Eosinophils # (Manual) INR D-Dimer ABG pH POC ABG pCO2 POC ABG pO2 ABG pO2 ABG HCO3 ABG O2 Saturation ABG Base Excess ABG Hemoglobin ABG Oxyhemoglobin ABG Sodium ABG Potassium ABG Chloride ABG Glucose Oxyhemoglobin Carboxyhemoglobin Sodium Potassium Chloride Carbon Dioxide BUN Creatinine Glucose POC Glucose 127 H 129 H 115 H Hemoglobin A1c Lactic Acid Calcium Phosphorus Magnesium Ferritin Total Bilirubin AST ALT Lactate Dehydrogenase C-Reactive Protein Albumin Triglycerides Arterial Blood Glucose Arterial Blood Ionized Calcium Urine Creatinine Coronavirus (PCR) Crossmatch 02/28/21 02/28/21 02/28/21 04:07 05:29 10:22 WBC RBC Hgb Hct MCV MCH MCHC RDW Plt Count Lymph % (Auto) Lymph # (Auto) Seg Neutrophils % Seg Neuts % (Manual) Lymphocytes % (Manual) Monocytes % (Manual) Nucleated RBC % Seg Neutrophils # Seg Neutrophils # Man Lymphocytes # (Manual) Monocytes # (Manual) Eosinophils # (Manual) INR D-Dimer ABG pH 7.260 L POC ABG pCO2 67.6 H POC ABG pO2 ABG pO2 ABG HCO3 ABG O2 Saturation ABG Base Excess ABG Hemoglobin 7.9 L ABG Oxyhemoglobin ABG Sodium ABG Potassium ABG Chloride ABG Glucose 129 H Oxyhemoglobin Carboxyhemoglobin Sodium Potassium Chloride Carbon Dioxide BUN 68 H Creatinine 3.5 H Glucose 117 H POC Glucose 117 H Hemoglobin A1c Lactic Acid Calcium 7.9 L Phosphorus Magnesium Ferritin Total Bilirubin AST ALT Lactate Dehydrogenase C-Reactive Protein Albumin Triglycerides Arterial Blood Glucose 129 H Arterial Blood Ionized Calcium Urine Creatinine Coronavirus (PCR) Crossmatch 02/28/21 02/28/21 03/01/21 11:51 17:26 00:31 WBC RBC Hgb Hct MCV MCH MCHC RDW Plt Count Lymph % (Auto) Lymph # (Auto) Seg Neutrophils % Seg Neuts % (Manual) Lymphocytes % (Manual) Monocytes % (Manual) Nucleated RBC % Seg Neutrophils # Seg Neutrophils # Man Lymphocytes # (Manual) Monocytes # (Manual) Eosinophils # (Manual) INR D-Dimer ABG pH POC ABG pCO2 POC ABG pO2 ABG pO2 ABG HCO3 ABG O2 Saturation ABG Base Excess ABG Hemoglobin ABG Oxyhemoglobin ABG Sodium ABG Potassium ABG Chloride ABG Glucose Oxyhemoglobin Carboxyhemoglobin Sodium Potassium Chloride Carbon Dioxide BUN Creatinine Glucose POC Glucose 123 H 121 H 112 H Hemoglobin A1c Lactic Acid Calcium Phosphorus Magnesium Ferritin Total Bilirubin AST ALT Lactate Dehydrogenase C-Reactive Protein Albumin Triglycerides Arterial Blood Glucose Arterial Blood Ionized Calcium Urine Creatinine Coronavirus (PCR) Crossmatch 03/01/21 03/01/21 03/01/21 03:29 06:00 06:17 WBC RBC Hgb Hct MCV MCH MCHC RDW Plt Count Lymph % (Auto) Lymph # (Auto) Seg Neutrophils % Seg Neuts % (Manual) Lymphocytes % (Manual) Monocytes % (Manual) Nucleated RBC % Seg Neutrophils # Seg Neutrophils # Man Lymphocytes # (Manual) Monocytes # (Manual) Eosinophils # (Manual) INR D-Dimer ABG pH POC ABG pCO2 52.3 H POC ABG pO2 115.1 H ABG pO2 ABG HCO3 ABG O2 Saturation ABG Base Excess ABG Hemoglobin 7.5 L ABG Oxyhemoglobin ABG Sodium 135.6 L ABG Potassium ABG Chloride ABG Glucose 117 H Oxyhemoglobin Carboxyhemoglobin 1.6 H Sodium Potassium Chloride Carbon Dioxide BUN 78 H Creatinine 3.6 H Glucose 110 H POC Glucose 121 H Hemoglobin A1c Lactic Acid Calcium 8.0 L Phosphorus Magnesium Ferritin Total Bilirubin AST ALT Lactate Dehydrogenase C-Reactive Protein Albumin Triglycerides Arterial Blood Glucose 117 H Arterial Blood Ionized Calcium Urine Creatinine Coronavirus (PCR) Crossmatch
[2021-03-01] MEDS: dexmedeTOMIDine 1,000 MCG in SODIUM CHLORIDE 0.9% 250ML 250 ML IV SCH ×2 (17:38→20:26)
[2021-03-02] MEDS: fentaNYL DRIP Premix 2,000 MCG/100 ML BAG IV SCH ×4 (01:25→20:41)
[2021-03-02 03:45] LABS: ABG Base Excess 2.9 mmol/L (-2.0-3.0); ABG HCO3 30.1 mmol/L (20.0-26.0); ABG Methemoglobin 0.6 % (0.0-1.5); ABG Oxygen Saturation 98.6 % (95.0-99.0); ABG PCO2 65.1 mm Hg; ABG PH 7.282 pH Units (7.350-7.450); ABG PO2 150.8 mm Hg (80.0-90.0)
[2021-03-02 05:35] LABS: Calcium 7.7 mg/dL (8.4-10.2)
[2021-03-02] MEDS: HEPARIN 5,000 UNIT/1 ML VIAL SUB-Q SCH ×3 (06:03→21:14)
[2021-03-02] MEDS: dexmedeTOMIDine 1,000 MCG in SODIUM CHLORIDE 0.9% 250ML 250 ML IV SCH ×3 (06:04→23:30)
[2021-03-02] MEDS: SENNOSIDES/DOCUSATE SODIUM 8.6/50 MG TAB PO SCH ×2 (09:26→21:14)
[2021-03-02] MEDS: LANSOPRAZOLE 30 MG SOLUTAB FEEDTUBE SCH (09:26)
--- NOTE | 2021-03-02 11:22 | Progress Note ---
Assessment and Plan Imp: 1. Covid-19 2. Viral pneumonia 3. ARDS 4. Acute respiratory failure, hypoxia 5. Morbid obesity 6. DEISI 7. Anasarca Rec: 1. Cont. current management; wean FiO2 to 50% then PEEP; will need trach once ventilator settings allow 2. TFs, GI PPx, SCDs, SubQ heparin 3. HD per renal 4. F/u Neurology recs 5. Transfuse if H/H less than 7.0/21.0 6. Cont. on ACPC; okay with most recent ABG (permissive hypercapnea) 7. Prognosis poor; CCt 31 minutes Subjective Date of service: 03/02/21 Principal diagnosis: DEISI Interval history: Orally intubated arterial blood gases have shown significant improvement today. Remain on pressure control ventilation with PEEP of 10 at 60% FiO2, sats are in high 90s Objective Vital Signs - 12hr 03/01/21 03/01/21 03/01/21 23:30 23:42 23:46 Temperature Pulse Rate 97 H 102 H 99 H Pulse Rate [ From Monitor] Respiratory 17 34 H Rate Blood Pressure 89/54 89/54 89/54 O2 Sat by Pulse 97 99 100 Oximetry 03/01/21 03/02/21 03/02/21 23:50 00:00 00:16 Temperature 100.1 F H Pulse Rate 101 H 99 H Pulse Rate [ 98 H From Monitor] Respiratory 34 H 17 Rate Blood Pressure 95/59 95/59 O2 Sat by Pulse 98 99 Oximetry 03/02/21 03/02/21 03/02/21 00:30 00:46 01:00 Temperature Pulse Rate 97 H 95 H 95 H Pulse Rate [ From Monitor] Respiratory 17 17 34 H Rate Blood Pressure 95/59 95/59 118/73 O2 Sat by Pulse 98 98 98 Oximetry 03/02/21 03/02/21 03/02/21 01:16 01:30 01:46 Temperature Pulse Rate 98 H 98 H 97 H Pulse Rate [ From Monitor] Respiratory 34 H 16 15 Rate Blood Pressure 118/73 118/73 118/73 O2 Sat by Pulse 98 98 98 Oximetry 03/02/21 03/02/21 03/02/21 02:00 02:16 02:30 Temperature Pulse Rate 98 H 98 H 96 H Pulse Rate [ From Monitor] Respiratory 24 18 17 Rate Blood Pressure 106/67 106/67 106/67 O2 Sat by Pulse 96 98 98 Oximetry 03/02/21 03/02/21 03/02/21 02:46 03:00 03:16 Temperature Pulse Rate 93 H 92 H 93 H Pulse Rate [ From Monitor] Respiratory 23 14 21 Rate Blood Pressure 106/67 102/61 102/61 O2 Sat by Pulse 98 98 Oximetry 03/02/21 03/02/21 03/02/21 03:30 03:45 03:46 Temperature 100.8 F H Pulse Rate 94 H 99 H Pulse Rate [ From Monitor] Respiratory 24 28 H Rate Blood Pressure 102/61 102/61 O2 Sat by Pulse 98 98 Oximetry 03/02/21 03/02/21 03/02/21 04:00 04:16 04:30 Temperature Pulse Rate 106 H 104 H Pulse Rate [ 101 H From Monitor] Respiratory 17 12 Rate Blood Pressure 102/61 102/61 153/75 O2 Sat by Pulse 97 93 99 Oximetry 03/02/21 03/02/21 03/02/21 04:46 05:00 05:16 Temperature Pulse Rate 102 H 99 H 97 H Pulse Rate [ From Monitor] Respiratory 34 H 22 35 H Rate Blood Pressure 153/75 114/61 114/61 O2 Sat by Pulse 99 94 98 Oximetry 03/02/21 03/02/21 03/02/21 05:30 05:46 06:00 Temperature Pulse Rate 94 H 92 H 90 Pulse Rate [ From Monitor] Respiratory 20 34 H 27 H Rate Blood Pressure 114/61 114/61 103/62 O2 Sat by Pulse 98 97 Oximetry 03/02/21 03/02/21 03/02/21 06:16 06:30 06:46 Temperature Pulse Rate 90 89 89 Pulse Rate [ From Monitor] Respiratory 35 H 35 H 34 H Rate Blood Pressure 103/62 103/62 103/62 O2 Sat by Pulse 97 97 97 Oximetry 03/02/21 03/02/21 03/02/21 07:00 07:16 07:30 Temperature Pulse Rate 89 91 H 93 H Pulse Rate [ From Monitor] Respiratory 34 H 34 H 34 H Rate Blood Pressure 99/59 99/59 99/59 O2 Sat by Pulse 94 98 98 Oximetry 03/02/21 03/02/21 03/02/21 07:46 08:00 08:16 Temperature 98.6 F Pulse Rate 94 H 96 H 93 H Pulse Rate [ 91 H From Monitor] Respiratory 33 H 18 18 Rate Blood Pressure 99/59 117/71 117/71 O2 Sat by Pulse 97 93 98 Oximetry 03/02/21 03/02/21 03/02/21 08:30 08:46 08:52 Temperature Pulse Rate 88 86 87 Pulse Rate [ From Monitor] Respiratory 34 H 35 H Rate Blood Pressure 117/71 117/71 117/71 O2 Sat by Pulse 98 98 97 Oximetry 03/02/21 03/02/21 03/02/21 08:57 09:00 09:16 Temperature Pulse Rate 87 89 91 H Pulse Rate [ From Monitor] Respiratory 34 H 32 H Rate Blood Pressure 117/71 101/60 101/60 O2 Sat by Pulse 98 96 93 Oximetry 03/02/21 03/02/21 03/02/21 09:30 09:46 10:00 Temperature Pulse Rate 91 H 91 H 90 Pulse Rate [ From Monitor] Respiratory 35 H 19 37 H Rate Blood Pressure 101/60 101/60 97/57 O2 Sat by Pulse 93 92 93 Oximetry Constitutional: other (sedated) Eyes: non-icteric ENT: other (orally intubated, critically ill) Neck: supple Effort: mildly labored (tachypneic) Ascultation: Bilateral: clear, other (coarse BS bilaterally) Percussion: Bilateral: not dull Cardiovascular: regular rate and rhythm (no mrg) Gastrointestinal: normoactive bowel sounds Integumentary: normal Extremities: no cyanosis, no edema, pink and warm Neurologic: unable to assess Psychiatric: other (unable to assess) CBC and BMP: 02/26/21 05:48 03/02/21 04:43 ABG, PT/INR, D-dimer: ABG ABG pH 7.282 pH Units (7.350-7.450) L 03/02/21 Unknown POC ABG pCO2 52.3 mmHg (32.0-48.0) H 03/01/21 03:29 ABG pCO2 65.1 mm Hg 03/02/21 Unknown POC ABG pO2 115.1 mmHg (83-108) H 03/01/21 03:29 ABG pO2 150.8 mm Hg (80.0-90.0) H 03/02/21 Unknown POC ABG HCO3 26.8 03/01/21 03:29 ABG O2 Saturation 98.6 % (95.0-99.0) 03/02/21 Unknown PT/INR, D-dimer PT 14.9 Sec. (12.2-14.9) 02/11/21 08:27 INR 1.17 (0.87-1.13) H 02/11/21 08:27 D-Dimer 6536.84 ng/mlDDU (0-234) H 02/25/21 09:03 Abnormal lab findings: Abnormal Labs 01/22/21 01/22/21 01/22/21 22:39 22:57 22:57 WBC RBC Hgb Hct MCV MCH MCHC RDW Plt Count Lymph % (Auto) 6.6 L Lymph # (Auto) 0.5 L Seg Neutrophils % 87.6 H Seg Neuts % (Manual) Lymphocytes % (Manual) Monocytes % (Manual) Nucleated RBC % Seg Neutrophils # Seg Neutrophils # Man Lymphocytes # (Manual) Monocytes # (Manual) Eosinophils # (Manual) INR D-Dimer ABG pH POC ABG pCO2 POC ABG pO2 ABG pO2 ABG HCO3 ABG O2 Saturation ABG Base Excess ABG Hemoglobin ABG Oxyhemoglobin ABG Sodium ABG Potassium ABG Chloride ABG Glucose Oxyhemoglobin Carboxyhemoglobin Sodium 129 L Potassium 3.4 L Chloride 90.4 L Carbon Dioxide BUN 34 H Creatinine 1.5 H Glucose 146 H POC Glucose Hemoglobin A1c Lactic Acid Calcium 7.8 L Phosphorus Magnesium Ferritin Total Bilirubin AST 75 H ALT 57 H Lactate Dehydrogenase C-Reactive Protein Albumin 2.9 L Triglycerides Arterial Blood Glucose Arterial Blood Ionized Calcium Urine Creatinine 301.2 H Coronavirus (PCR) Crossmatch 01/22/21 01/22/21 01/22/21 22:57 22:57 22:57 WBC RBC Hgb Hct MCV MCH MCHC RDW Plt Count Lymph % (Auto) Lymph # (Auto) Seg Neutrophils % Seg Neuts % (Manual) Lymphocytes % (Manual) Monocytes % (Manual) Nucleated RBC % Seg Neutrophils # Seg Neutrophils # Man Lymphocytes # (Manual) Monocytes # (Manual) Eosinophils # (Manual) INR D-Dimer 1173.89 H ABG pH POC ABG pCO2 POC ABG pO2 ABG pO2 ABG HCO3 ABG O2 Saturation ABG Base Excess ABG Hemoglobin ABG Oxyhemoglobin ABG Sodium ABG Potassium ABG Chloride ABG Glucose Oxyhemoglobin Carboxyhemoglobin Sodium Potassium Chloride Carbon Dioxide BUN Creatinine Glucose 149 H POC Glucose Hemoglobin A1c Lactic Acid 2.10 H* Calcium Phosphorus Magnesium Ferritin Total Bilirubin AST ALT Lactate Dehydrogenase 685 H C-Reactive Protein 30.40 H Albumin Triglycerides Arterial Blood Glucose Arterial Blood Ionized Calcium Urine Creatinine Coronavirus (PCR) Crossmatch 01/22/21 01/23/21 01/23/21 22:57 08:41 10:01 WBC RBC Hgb Hct MCV MCH MCHC RDW Plt Count Lymph % (Auto) Lymph # (Auto) Seg Neutrophils % Seg Neuts % (Manual) Lymphocytes % (Manual) Monocytes % (Manual) Nucleated RBC % Seg Neutrophils # Seg Neutrophils # Man Lymphocytes # (Manual) Monocytes # (Manual) Eosinophils # (Manual) INR D-Dimer ABG pH POC ABG pCO2 POC ABG pO2 ABG pO2 ABG HCO3 ABG O2 Saturation ABG Base Excess ABG Hemoglobin ABG Oxyhemoglobin ABG Sodium ABG Potassium ABG Chloride ABG Glucose Oxyhemoglobin Carboxyhemoglobin Sodium 131 L Potassium Chloride 88.7 L Carbon Dioxide 18 L BUN 36 H Creatinine 1.6 H Glucose 147 H POC Glucose Hemoglobin A1c Lactic Acid Calcium 7.5 L Phosphorus Magnesium Ferritin 1207.0 H Total Bilirubin AST ALT Lactate Dehydrogenase C-Reactive Protein Albumin Triglycerides Arterial Blood Glucose Arterial Blood Ionized Calcium Urine Creatinine Coronavirus (PCR) Positive A Crossmatch 01/23/21 01/23/21 01/24/21 20:49 Unknown 00:10 WBC RBC Hgb Hct MCV MCH MCHC RDW Plt Count Lymph % (Auto) Lymph # (Auto) Seg Neutrophils % Seg Neuts % (Manual) Lymphocytes % (Manual) Monocytes % (Manual) Nucleated RBC % Seg Neutrophils # Seg Neutrophils # Man Lymphocytes # (Manual) Monocytes # (Manual) Eosinophils # (Manual) INR D-Dimer ABG pH POC ABG pCO2 POC ABG pO2 ABG pO2 165.4 H ABG HCO3 ABG O2 Saturation ABG Base Excess -2.5 L ABG Hemoglobin ABG Oxyhemoglobin ABG Sodium ABG Potassium ABG Chloride ABG Glucose Oxyhemoglobin Carboxyhemoglobin Sodium 130 L Potassium Chloride 91.0 L Carbon Dioxide 20 L BUN 52 H Creatinine 3.8 H D Glucose 150 H POC Glucose 125 H Hemoglobin A1c Lactic Acid Calcium 8.0 L Phosphorus Magnesium Ferritin Total Bilirubin AST 42 H ALT Lactate Dehydrogenase C-Reactive Protein Albumin 2.4 L Triglycerides Arterial Blood Glucose Arterial Blood Ionized Calcium Urine Creatinine Coronavirus (PCR) Crossmatch 01/24/21 01/24/21 01/24/21 05:05 05:05 05:05 WBC 14.0 H RBC Hgb Hct MCV 95 H MCH 33 H MCHC RDW Plt Count Lymph % (Auto) Lymph # (Auto) Seg Neutrophils % Seg Neuts % (Manual) 91.0 H Lymphocytes % (Manual) 4.0 L Monocytes % (Manual) Nucleated RBC % Seg Neutrophils # Seg Neutrophils # Man 12.7 H Lymphocytes # (Manual) 0.6 L Monocytes # (Manual) Eosinophils # (Manual) INR D-Dimer 6159.48 H ABG pH POC ABG pCO2 POC ABG pO2 ABG pO2 ABG HCO3 ABG O2 Saturation ABG Base Excess ABG Hemoglobin ABG Oxyhemoglobin ABG Sodium ABG Potassium ABG Chloride ABG Glucose Oxyhemoglobin Carboxyhemoglobin Sodium Potassium Chloride Carbon Dioxide BUN Creatinine Glucose POC Glucose Hemoglobin A1c Lactic Acid Calcium Phosphorus Magnesium Ferritin 1178.0 H Total Bilirubin AST ALT Lactate Dehydrogenase C-Reactive Protein Albumin Triglycerides Arterial Blood Glucose Arterial Blood Ionized Calcium Urine Creatinine Coronavirus (PCR) Crossmatch 01/24/21 01/24/21 01/24/21 05:05 05:05 05:05 WBC RBC Hgb Hct MCV MCH MCHC RDW Plt Count Lymph % (Auto) Lymph # (Auto) Seg Neutrophils % Seg Neuts % (Manual) Lymphocytes % (Manual) Monocytes % (Manual) Nucleated RBC % Seg Neutrophils # Seg Neutrophils # Man Lymphocytes # (Manual) Monocytes # (Manual) Eosinophils # (Manual) INR D-Dimer ABG pH POC ABG pCO2 POC ABG pO2 ABG pO2 ABG HCO3 ABG O2 Saturation ABG Base Excess ABG Hemoglobin ABG Oxyhemoglobin ABG Sodium ABG Potassium ABG Chloride ABG Glucose Oxyhemoglobin Carboxyhemoglobin Sodium 132 L Potassium Chloride 93.1 L Carbon Dioxide 21 L BUN 57 H Creatinine 3.7 H Glucose 133 H POC Glucose Hemoglobin A1c Lactic Acid 2.20 H* Calcium 7.7 L Phosphorus Magnesium Ferritin Total Bilirubin AST ALT Lactate Dehydrogenase 658 H C-Reactive Protein 33.20 H Albumin 2.4 L Triglycerides Arterial Blood Glucose Arterial Blood Ionized Calcium Urine Creatinine Coronavirus (PCR) Crossmatch 01/24/21 01/24/21 01/24/21 05:34 06:00 17:35 WBC RBC Hgb Hct MCV MCH MCHC RDW Plt Count Lymph % (Auto) Lymph # (Auto) Seg Neutrophils % Seg Neuts % (Manual) Lymphocytes % (Manual) Monocytes % (Manual) Nucleated RBC % Seg Neutrophils # Seg Neutrophils # Man Lymphocytes # (Manual) Monocytes # (Manual) Eosinophils # (Manual) INR D-Dimer ABG pH POC ABG pCO2 POC ABG pO2 ABG pO2 ABG HCO3 ABG O2 Saturation ABG Base Excess ABG Hemoglobin ABG Oxyhemoglobin ABG Sodium ABG Potassium ABG Chloride ABG Glucose Oxyhemoglobin Carboxyhemoglobin Sodium Potassium Chloride Carbon Dioxide BUN Creatinine Glucose POC Glucose 136 H 137 H Hemoglobin A1c Lactic Acid Calcium Phosphorus Magnesium 2.80 H Ferritin Total Bilirubin AST ALT Lactate Dehydrogenase C-Reactive Protein Albumin Triglycerides Arterial Blood Glucose Arterial Blood Ionized Calcium Urine Creatinine Coronavirus (PCR) Crossmatch 01/25/21 01/25/21 01/25/21 04:15 05:40 05:40 WBC RBC Hgb Hct MCV 95 H MCH 33 H MCHC 35 H RDW Plt Count Lymph % (Auto) Lymph # (Auto) Seg Neutrophils % Seg Neuts % (Manual) 95.0 H Lymphocytes % (Manual) 3.0 L Monocytes % (Manual) Nucleated RBC % Seg Neutrophils # Seg Neutrophils # Man 7.8 H Lymphocytes # (Manual) 0.2 L Monocytes # (Manual) Eosinophils # (Manual) INR D-Dimer ABG pH POC ABG pCO2 POC ABG pO2 63.2 L ABG pO2 ABG HCO3 ABG O2 Saturation ABG Base Excess ABG Hemoglobin ABG Oxyhemoglobin 89.6 L ABG Sodium ABG Potassium ABG Chloride ABG Glucose 165 H Oxyhemoglobin Carboxyhemoglobin 0.3 L Sodium Potassium Chloride Carbon Dioxide BUN 67 H Creatinine 3.4 H Glucose 153 H POC Glucose Hemoglobin A1c Lactic Acid Calcium 7.5 L Phosphorus Magnesium Ferritin Total Bilirubin 1.40 H AST 62 H ALT Lactate Dehydrogenase C-Reactive Protein Albumin 2.6 L Triglycerides Arterial Blood Glucose 165 H Arterial Blood Ionized Calcium 4.3 L Urine Creatinine Coronavirus (PCR) Crossmatch 01/25/21 01/25/21 01/25/21 05:59 12:00 17:17 WBC RBC Hgb Hct MCV MCH MCHC RDW Plt Count Lymph % (Auto) Lymph # (Auto) Seg Neutrophils % Seg Neuts % (Manual) Lymphocytes % (Manual) Monocytes % (Manual) Nucleated RBC % Seg Neutrophils # Seg Neutrophils # Man Lymphocytes # (Manual) Monocytes # (Manual) Eosinophils # (Manual) INR D-Dimer ABG pH POC ABG pCO2 POC ABG pO2 ABG pO2 ABG HCO3 ABG O2 Saturation ABG Base Excess ABG Hemoglobin ABG Oxyhemoglobin ABG Sodium ABG Potassium ABG Chloride ABG Glucose Oxyhemoglobin Carboxyhemoglobin Sodium Potassium Chloride Carbon Dioxide BUN Creatinine Glucose POC Glucose 140 H 143 H 149 H Hemoglobin A1c Lactic Acid Calcium Phosphorus Magnesium Ferritin Total Bilirubin AST ALT Lactate Dehydrogenase C-Reactive Protein Albumin Triglycerides Arterial Blood Glucose Arterial Blood Ionized Calcium Urine Creatinine Coronavirus (PCR) Crossmatch 01/25/21 01/26/21 01/26/21 23:41 03:43 05:46 WBC RBC Hgb Hct MCV MCH MCHC RDW Plt Count Lymph % (Auto) Lymph # (Auto) Seg Neutrophils % Seg Neuts % (Manual) Lymphocytes % (Manual) Monocytes % (Manual) Nucleated RBC % Seg Neutrophils # Seg Neutrophils # Man Lymphocytes # (Manual) Monocytes # (Manual) Eosinophils # (Manual) INR D-Dimer ABG pH POC ABG pCO2 POC ABG pO2 70.0 L ABG pO2 ABG HCO3 ABG O2 Saturation ABG Base Excess ABG Hemoglobin ABG Oxyhemoglobin 91.9 L ABG Sodium ABG Potassium ABG Chloride 109.0 H ABG Glucose 165 H Oxyhemoglobin Carboxyhemoglobin Sodium Potassium Chloride Carbon Dioxide BUN Creatinine Glucose POC Glucose 132 H 161 H Hemoglobin A1c Lactic Acid Calcium Phosphorus Magnesium Ferritin Total Bilirubin AST ALT Lactate Dehydrogenase C-Reactive Protein Albumin Triglycerides Arterial Blood Glucose 165 H Arterial Blood Ionized Calcium 4.5 L Urine Creatinine Coronavirus (PCR) Crossmatch 01/26/21 01/26/21 01/26/21 05:47 05:47 05:47 WBC RBC Hgb Hct 35.3 L MCV 96 H MCH 33 H MCHC RDW Plt Count Lymph % (Auto) Lymph # (Auto) Seg Neutrophils % Seg Neuts % (Manual) 96.0 H Lymphocytes % (Manual) 2.0 L Monocytes % (Manual) Nucleated RBC % Seg Neutrophils # Seg Neutrophils # Man Lymphocytes # (Manual) 0.1 L Monocytes # (Manual) Eosinophils # (Manual) INR D-Dimer > 47692 H ABG pH POC ABG pCO2 POC ABG pO2 ABG pO2 ABG HCO3 ABG O2 Saturation ABG Base Excess ABG Hemoglobin ABG Oxyhemoglobin ABG Sodium ABG Potassium ABG Chloride ABG Glucose Oxyhemoglobin Carboxyhemoglobin Sodium Potassium Chloride Carbon Dioxide BUN 57 H Creatinine 2.2 H Glucose 185 H POC Glucose Hemoglobin A1c Lactic Acid Calcium 8.1 L Phosphorus Magnesium Ferritin Total Bilirubin AST ALT Lactate Dehydrogenase C-Reactive Protein Albumin Triglycerides Arterial Blood Glucose Arterial Blood Ionized Calcium Urine Creatinine Coronavirus (PCR) Crossmatch 01/26/21 01/26/21 01/26/21 05:47 05:47 05:47 WBC RBC Hgb Hct MCV MCH MCHC RDW Plt Count Lymph % (Auto) Lymph # (Auto) Seg Neutrophils % Seg Neuts % (Manual) Lymphocytes % (Manual) Monocytes % (Manual) Nucleated RBC % Seg Neutrophils # Seg Neutrophils # Man Lymphocytes # (Manual) Monocytes # (Manual) Eosinophils # (Manual) INR D-Dimer ABG pH POC ABG pCO2 POC ABG pO2 ABG pO2 ABG HCO3 ABG O2 Saturation ABG Base Excess ABG Hemoglobin ABG Oxyhemoglobin ABG Sodium ABG Potassium ABG Chloride ABG Glucose Oxyhemoglobin Carboxyhemoglobin Sodium Potassium Chloride 107.1 H Carbon Dioxide BUN 56 H Creatinine 2.2 H Glucose 188 H POC Glucose Hemoglobin A1c Lactic Acid Calcium 8.0 L Phosphorus Magnesium Ferritin 1178.0 H Total Bilirubin 1.50 H AST ALT Lactate Dehydrogenase 588 H C-Reactive Protein 40.10 H Albumin 2.2 L Triglycerides Arterial Blood Glucose Arterial Blood Ionized Calcium Urine Creatinine Coronavirus (PCR) Crossmatch 01/26/21 01/26/21 01/26/21 11:34 18:17 23:20 WBC RBC Hgb Hct MCV MCH MCHC RDW Plt Count Lymph % (Auto) Lymph # (Auto) Seg Neutrophils % Seg Neuts % (Manual) Lymphocytes % (Manual) Monocytes % (Manual) Nucleated RBC % Seg Neutrophils # Seg Neutrophils # Man Lymphocytes # (Manual) Monocytes # (Manual) Eosinophils # (Manual) INR D-Dimer ABG pH POC ABG pCO2 POC ABG pO2 ABG pO2 ABG HCO3 ABG O2 Saturation ABG Base Excess ABG Hemoglobin ABG Oxyhemoglobin ABG Sodium ABG Potassium ABG Chloride ABG Glucose Oxyhemoglobin Carboxyhemoglobin Sodium Potassium Chloride Carbon Dioxide BUN Creatinine Glucose POC Glucose 129 H 205 H 155 H Hemoglobin A1c Lactic Acid Calcium Phosphorus Magnesium Ferritin Total Bilirubin AST ALT Lactate Dehydrogenase C-Reactive Protein Albumin Triglycerides Arterial Blood Glucose Arterial Blood Ionized Calcium Urine Creatinine Coronavirus (PCR) Crossmatch 01/27/21 01/27/21 01/27/21 02:45 05:29 05:29 WBC RBC 3.58 L Hgb 11.7 L Hct 34.9 L MCV 97 H MCH 33 H MCHC RDW Plt Count Lymph % (Auto) Lymph # (Auto) Seg Neutrophils % Seg Neuts % (Manual) 88.0 H Lymphocytes % (Manual) 7.0 L Monocytes % (Manual) Nucleated RBC % Seg Neutrophils # Seg Neutrophils # Man Lymphocytes # (Manual) 0.5 L Monocytes # (Manual) Eosinophils # (Manual) INR D-Dimer ABG pH 7.319 L POC ABG pCO2 50.7 H POC ABG pO2 63.0 L ABG pO2 ABG HCO3 ABG O2 Saturation ABG Base Excess ABG Hemoglobin ABG Oxyhemoglobin ABG Sodium 145.2 H ABG Potassium 5.1 H ABG Chloride 114.0 H ABG Glucose 178 H Oxyhemoglobin Carboxyhemoglobin Sodium Potassium Chloride Carbon Dioxide BUN Creatinine Glucose POC Glucose Hemoglobin A1c Lactic Acid Calcium Phosphorus Magnesium 4.00 H Ferritin Total Bilirubin AST ALT Lactate Dehydrogenase C-Reactive Protein Albumin Triglycerides Arterial Blood Glucose 178 H Arterial Blood Ionized Calcium Urine Creatinine Coronavirus (PCR) Crossmatch 01/27/21 01/27/21 01/27/21 05:29 05:29 05:31 WBC RBC Hgb Hct MCV MCH MCHC RDW Plt Count Lymph % (Auto) Lymph # (Auto) Seg Neutrophils % Seg Neuts % (Manual) Lymphocytes % (Manual) Monocytes % (Manual) Nucleated RBC % Seg Neutrophils # Seg Neutrophils # Man Lymphocytes # (Manual) Monocytes # (Manual) Eosinophils # (Manual) INR D-Dimer ABG pH POC ABG pCO2 POC ABG pO2 ABG pO2 ABG HCO3 ABG O2 Saturation ABG Base Excess ABG Hemoglobin ABG Oxyhemoglobin ABG Sodium ABG Potassium ABG Chloride ABG Glucose Oxyhemoglobin Carboxyhemoglobin Sodium Potassium 5.2 H Chloride 109.6 H Carbon Dioxide BUN 67 H Creatinine 2.8 H Glucose 195 H POC Glucose 176 H Hemoglobin A1c Lactic Acid Calcium 7.9 L Phosphorus Magnesium Ferritin Total Bilirubin AST ALT Lactate Dehydrogenase C-Reactive Protein Albumin Triglycerides 160 H Arterial Blood Glucose Arterial Blood Ionized Calcium Urine Creatinine Coronavirus (PCR) Crossmatch 01/27/21 01/27/21 01/27/21 11:27 18:08 23:30 WBC RBC Hgb Hct MCV MCH MCHC RDW Plt Count Lymph % (Auto) Lymph # (Auto) Seg Neutrophils % Seg Neuts % (Manual) Lymphocytes % (Manual) Monocytes % (Manual) Nucleated RBC % Seg Neutrophils # Seg Neutrophils # Man Lymphocytes # (Manual) Monocytes # (Manual) Eosinophils # (Manual) INR D-Dimer ABG pH POC ABG pCO2 POC ABG pO2 ABG pO2 ABG HCO3 ABG O2 Saturation ABG Base Excess ABG Hemoglobin ABG Oxyhemoglobin ABG Sodium ABG Potassium ABG Chloride ABG Glucose Oxyhemoglobin Carboxyhemoglobin Sodium Potassium Chloride Carbon Dioxide BUN Creatinine Glucose POC Glucose 189 H 212 H 175 H Hemoglobin A1c Lactic Acid Calcium Phosphorus Magnesium Ferritin Total Bilirubin AST ALT Lactate Dehydrogenase C-Reactive Protein Albumin Triglycerides Arterial Blood Glucose Arterial Blood Ionized Calcium Urine Creatinine Coronavirus (PCR) Crossmatch 01/28/21 01/28/21 01/28/21 03:58 04:00 04:00 WBC RBC Hgb Hct MCV MCH MCHC RDW Plt Count Lymph % (Auto) Lymph # (Auto) Seg Neutrophils % Seg Neuts % (Manual) Lymphocytes % (Manual) Monocytes % (Manual) Nucleated RBC % Seg Neutrophils # Seg Neutrophils # Man Lymphocytes # (Manual) Monocytes # (Manual) Eosinophils # (Manual) INR D-Dimer > 95766 H ABG pH POC ABG pCO2 POC ABG pO2 52.9 L ABG pO2 ABG HCO3 ABG O2 Saturation ABG Base Excess ABG Hemoglobin ABG Oxyhemoglobin 84.1 L ABG Sodium 148.9 H ABG Potassium ABG Chloride 117.0 H ABG Glucose 194 H Oxyhemoglobin Carboxyhemoglobin Sodium Potassium Chloride Carbon Dioxide BUN Creatinine Glucose POC Glucose Hemoglobin A1c Lactic Acid Calcium Phosphorus Magnesium Ferritin Total Bilirubin AST ALT Lactate Dehydrogenase 679 H C-Reactive Protein 17.10 H Albumin Triglycerides Arterial Blood Glucose 194 H Arterial Blood Ionized Calcium Urine Creatinine Coronavirus (PCR) Crossmatch 01/28/21 01/28/21 01/28/21 04:00 05:00 06:00 WBC RBC 3.59 L Hgb 11.6 L Hct 34.8 L MCV 97 H MCH MCHC RDW Plt Count Lymph % (Auto) Lymph # (Auto) Seg Neutrophils % Seg Neuts % (Manual) 96.0 H Lymphocytes % (Manual) 3.0 L Monocytes % (Manual) Nucleated RBC % Seg Neutrophils # Seg Neutrophils # Man Lymphocytes # (Manual) 0.2 L Monocytes # (Manual) Eosinophils # (Manual) INR D-Dimer ABG pH POC ABG pCO2 POC ABG pO2 ABG pO2 ABG HCO3 ABG O2 Saturation ABG Base Excess ABG Hemoglobin ABG Oxyhemoglobin ABG Sodium ABG Potassium ABG Chloride ABG Glucose Oxyhemoglobin Carboxyhemoglobin Sodium Potassium Chloride Carbon Dioxide BUN Creatinine Glucose POC Glucose 159 H Hemoglobin A1c Lactic Acid Calcium Phosphorus Magnesium Ferritin 798.0 H Total Bilirubin AST ALT Lactate Dehydrogenase C-Reactive Protein Albumin Triglycerides Arterial Blood Glucose Arterial Blood Ionized Calcium Urine Creatinine Coronavirus (PCR) Crossmatch 01/28/21 01/28/21 01/28/21 06:00 06:00 08:12 WBC RBC Hgb Hct MCV MCH MCHC RDW Plt Count Lymph % (Auto) Lymph # (Auto) Seg Neutrophils % Seg Neuts % (Manual) Lymphocytes % (Manual) Monocytes % (Manual) Nucleated RBC % Seg Neutrophils # Seg Neutrophils # Man Lymphocytes # (Manual) Monocytes # (Manual) Eosinophils # (Manual) INR D-Dimer ABG pH POC ABG pCO2 POC ABG pO2 ABG pO2 ABG HCO3 ABG O2 Saturation ABG Base Excess ABG Hemoglobin ABG Oxyhemoglobin ABG Sodium ABG Potassium ABG Chloride ABG Glucose Oxyhemoglobin Carboxyhemoglobin Sodium Potassium Chloride 111.9 H Carbon Dioxide BUN 59 H Creatinine 2.2 H Glucose 189 H POC Glucose 181 H Hemoglobin A1c Lactic Acid Calcium 8.1 L Phosphorus Magnesium 3.20 H Ferritin Total Bilirubin AST ALT Lactate Dehydrogenase C-Reactive Protein Albumin Triglycerides Arterial Blood Glucose Arterial Blood Ionized Calcium Urine Creatinine Coronavirus (PCR) Crossmatch 01/28/21 01/28/21 01/28/21 12:03 16:43 23:51 WBC RBC Hgb Hct MCV MCH MCHC RDW Plt Count Lymph % (Auto) Lymph # (Auto) Seg Neutrophils % Seg Neuts % (Manual) Lymphocytes % (Manual) Monocytes % (Manual) Nucleated RBC % Seg Neutrophils # Seg Neutrophils # Man Lymphocytes # (Manual) Monocytes # (Manual) Eosinophils # (Manual) INR D-Dimer ABG pH POC ABG pCO2 POC ABG pO2 ABG pO2 ABG HCO3 ABG O2 Saturation ABG Base Excess ABG Hemoglobin ABG Oxyhemoglobin ABG Sodium ABG Potassium ABG Chloride ABG Glucose Oxyhemoglobin Carboxyhemoglobin Sodium Potassium Chloride Carbon Dioxide BUN Creatinine Glucose POC Glucose 164 H 198 H 196 H Hemoglobin A1c Lactic Acid Calcium Phosphorus Magnesium Ferritin Total Bilirubin AST ALT Lactate Dehydrogenase C-Reactive Protein Albumin Triglycerides Arterial Blood Glucose Arterial Blood Ionized Calcium Urine Creatinine Coronavirus (PCR) Crossmatch 01/29/21 01/29/21 01/29/21 05:00 05:23 06:00 WBC RBC Hgb Hct MCV MCH MCHC RDW Plt Count Lymph % (Auto) Lymph # (Auto) Seg Neutrophils % Seg Neuts % (Manual) Lymphocytes % (Manual) Monocytes % (Manual) Nucleated RBC % Seg Neutrophils # Seg Neutrophils # Man Lymphocytes # (Manual) Monocytes # (Manual) Eosinophils # (Manual) INR D-Dimer ABG pH 7.119 L POC ABG pCO2 87.1 H POC ABG pO2 ABG pO2 ABG HCO3 ABG O2 Saturation ABG Base Excess ABG Hemoglobin ABG Oxyhemoglobin ABG Sodium 152.5 H ABG Potassium 5.7 H ABG Chloride 120.0 H ABG Glucose 217 H Oxyhemoglobin Carboxyhemoglobin Sodium 151 H Potassium 5.9 H D Chloride 117.8 H Carbon Dioxide BUN 54 H Creatinine 2.2 H Glucose 208 H POC Glucose 180 H Hemoglobin A1c Lactic Acid Calcium 7.9 L Phosphorus Magnesium Ferritin Total Bilirubin AST ALT Lactate Dehydrogenase C-Reactive Protein Albumin Triglycerides Arterial Blood Glucose 217 H Arterial Blood Ionized Calcium Urine Creatinine Coronavirus (PCR) Crossmatch 01/29/21 01/29/21 01/29/21 12:29 17:28 18:05 WBC RBC Hgb Hct MCV MCH MCHC RDW Plt Count Lymph % (Auto) Lymph # (Auto) Seg Neutrophils % Seg Neuts % (Manual) Lymphocytes % (Manual) Monocytes % (Manual) Nucleated RBC % Seg Neutrophils # Seg Neutrophils # Man Lymphocytes # (Manual) Monocytes # (Manual) Eosinophils # (Manual) INR D-Dimer ABG pH POC ABG pCO2 POC ABG pO2 ABG pO2 ABG HCO3 ABG O2 Saturation ABG Base Excess ABG Hemoglobin ABG Oxyhemoglobin ABG Sodium ABG Potassium ABG Chloride ABG Glucose Oxyhemoglobin Carboxyhemoglobin Sodium 151 H Potassium 5.5 H Chloride 118.2 H Carbon Dioxide BUN 52 H Creatinine 2.2 H Glucose 224 H POC Glucose 181 H 203 H Hemoglobin A1c Lactic Acid Calcium 8.0 L Phosphorus Magnesium Ferritin Total Bilirubin AST ALT Lactate Dehydrogenase C-Reactive Protein Albumin Triglycerides Arterial Blood Glucose Arterial Blood Ionized Calcium Urine Creatinine Coronavirus (PCR) Crossmatch 01/29/21 01/29/21 01/29/21 18:13 23:34 Unknown WBC RBC Hgb Hct MCV 101 H MCH MCHC RDW 15.7 H Plt Count Lymph % (Auto) Lymph # (Auto) Seg Neutrophils % Seg Neuts % (Manual) 95.0 H Lymphocytes % (Manual) 3.0 L Monocytes % (Manual) Nucleated RBC % Seg Neutrophils # Seg Neutrophils # Man 8.0 H Lymphocytes # (Manual) 0.3 L Monocytes # (Manual) Eosinophils # (Manual) INR D-Dimer ABG pH 7.223 L POC ABG pCO2 64.8 H POC ABG pO2 63.6 L ABG pO2 ABG HCO3 ABG O2 Saturation ABG Base Excess ABG Hemoglobin ABG Oxyhemoglobin 89.4 L ABG Sodium 152.9 H ABG Potassium 5.3 H ABG Chloride 121.0 H ABG Glucose 227 H Oxyhemoglobin Carboxyhemoglobin Sodium Potassium Chloride Carbon Dioxide BUN Creatinine Glucose POC Glucose 198 H Hemoglobin A1c Lactic Acid Calcium Phosphorus Magnesium Ferritin Total Bilirubin AST ALT Lactate Dehydrogenase C-Reactive Protein Albumin Triglycerides Arterial Blood Glucose 227 H Arterial Blood Ionized Calcium Urine Creatinine Coronavirus (PCR) Crossmatch 01/30/21 01/30/21 01/30/21 04:00 04:00 04:00 WBC RBC Hgb Hct MCV MCH MCHC RDW Plt Count Lymph % (Auto) Lymph # (Auto) Seg Neutrophils % Seg Neuts % (Manual) Lymphocytes % (Manual) Monocytes % (Manual) Nucleated RBC % Seg Neutrophils # Seg Neutrophils # Man Lymphocytes # (Manual) Monocytes # (Manual) Eosinophils # (Manual) INR D-Dimer > 48241 H ABG pH POC ABG pCO2 POC ABG pO2 ABG pO2 ABG HCO3 ABG O2 Saturation ABG Base Excess ABG Hemoglobin ABG Oxyhemoglobin ABG Sodium ABG Potassium ABG Chloride ABG Glucose Oxyhemoglobin Carboxyhemoglobin Sodium Potassium Chloride Carbon Dioxide BUN Creatinine Glucose 234 H POC Glucose Hemoglobin A1c Lactic Acid Calcium Phosphorus Magnesium Ferritin 763.9 H Total Bilirubin AST ALT Lactate Dehydrogenase 424 H C-Reactive Protein 23.90 H Albumin Triglycerides Arterial Blood Glucose Arterial Blood Ionized Calcium Urine Creatinine Coronavirus (PCR) Crossmatch 01/30/21 01/30/21 01/30/21 04:24 05:00 05:16 WBC RBC 3.57 L Hgb 11.3 L Hct 35.4 L MCV 99 H MCH MCHC RDW 15.6 H Plt Count Lymph % (Auto) Lymph # (Auto) Seg Neutrophils % Seg Neuts % (Manual) 97.0 H Lymphocytes % (Manual) 1.0 L Monocytes % (Manual) Nucleated RBC % Seg Neutrophils # Seg Neutrophils # Man 8.6 H Lymphocytes # (Manual) 0.1 L Monocytes # (Manual) Eosinophils # (Manual) INR D-Dimer ABG pH 7.235 L POC ABG pCO2 69.7 H POC ABG pO2 61.0 L ABG pO2 ABG HCO3 ABG O2 Saturation ABG Base Excess ABG Hemoglobin ABG Oxyhemoglobin 89 L ABG Sodium 154.2 H ABG Potassium 5.4 H ABG Chloride 121.0 H ABG Glucose 247 H Oxyhemoglobin Carboxyhemoglobin Sodium Potassium Chloride Carbon Dioxide BUN Creatinine Glucose POC Glucose 238 H Hemoglobin A1c Lactic Acid Calcium Phosphorus Magnesium Ferritin Total Bilirubin AST ALT Lactate Dehydrogenase C-Reactive Protein Albumin Triglycerides Arterial Blood Glucose 247 H Arterial Blood Ionized Calcium Urine Creatinine Coronavirus (PCR) Crossmatch 01/30/21 01/30/21 01/30/21 06:00 11:28 12:00 WBC RBC Hgb Hct MCV MCH MCHC RDW Plt Count Lymph % (Auto) Lymph # (Auto) Seg Neutrophils % Seg Neuts % (Manual) Lymphocytes % (Manual) Monocytes % (Manual) Nucleated RBC % Seg Neutrophils # Seg Neutrophils # Man Lymphocytes # (Manual) Monocytes # (Manual) Eosinophils # (Manual) INR D-Dimer ABG pH POC ABG pCO2 POC ABG pO2 ABG pO2 ABG HCO3 ABG O2 Saturation ABG Base Excess ABG Hemoglobin ABG Oxyhemoglobin ABG Sodium ABG Potassium ABG Chloride ABG Glucose Oxyhemoglobin Carboxyhemoglobin Sodium 152 H Potassium 5.3 H Chloride 120.5 H Carbon Dioxide BUN 50 H Creatinine 2.3 H Glucose 239 H POC Glucose 153 H Hemoglobin A1c Lactic Acid Calcium 8.2 L Phosphorus Magnesium 2.60 H Ferritin Total Bilirubin AST ALT Lactate Dehydrogenase C-Reactive Protein Albumin Triglycerides 293 H Arterial Blood Glucose Arterial Blood Ionized Calcium Urine Creatinine 53.0 H Coronavirus (PCR) Crossmatch 01/30/21 01/30/21 01/31/21 18:49 23:06 04:00 WBC RBC Hgb Hct MCV MCH MCHC RDW Plt Count Lymph % (Auto) Lymph # (Auto) Seg Neutrophils % Seg Neuts % (Manual) Lymphocytes % (Manual) Monocytes % (Manual) Nucleated RBC % Seg Neutrophils # Seg Neutrophils # Man Lymphocytes # (Manual) Monocytes # (Manual) Eosinophils # (Manual) INR D-Dimer ABG pH POC ABG pCO2 POC ABG pO2 ABG pO2 ABG HCO3 ABG O2 Saturation ABG Base Excess ABG Hemoglobin ABG Oxyhemoglobin ABG Sodium ABG Potassium ABG Chloride ABG Glucose Oxyhemoglobin Carboxyhemoglobin Sodium 156 H Potassium 5.9 H Chloride 122.6 H Carbon Dioxide BUN 61 H Creatinine 3.2 H Glucose 205 H POC Glucose 220 H 192 H Hemoglobin A1c Lactic Acid Calcium 8.0 L Phosphorus Magnesium Ferritin Total Bilirubin AST ALT Lactate Dehydrogenase C-Reactive Protein Albumin Triglycerides Arterial Blood Glucose Arterial Blood Ionized Calcium Urine Creatinine Coronavirus (PCR) Crossmatch 01/31/21 01/31/21 01/31/21 04:40 05:17 11:33 WBC RBC Hgb Hct MCV MCH MCHC RDW Plt Count Lymph % (Auto) Lymph # (Auto) Seg Neutrophils % Seg Neuts % (Manual) Lymphocytes % (Manual) Monocytes % (Manual) Nucleated RBC % Seg Neutrophils # Seg Neutrophils # Man Lymphocytes # (Manual) Monocytes # (Manual) Eosinophils # (Manual) INR D-Dimer ABG pH 7.161 L* POC ABG pCO2 POC ABG pO2 ABG pO2 142.2 H ABG HCO3 28.3 H ABG O2 Saturation ABG Base Excess -3.2 L ABG Hemoglobin ABG Oxyhemoglobin ABG Sodium ABG Potassium ABG Chloride ABG Glucose Oxyhemoglobin Carboxyhemoglobin Sodium Potassium Chloride Carbon Dioxide BUN Creatinine Glucose POC Glucose 200 H 167 H Hemoglobin A1c Lactic Acid Calcium Phosphorus Magnesium Ferritin Total Bilirubin AST ALT Lactate Dehydrogenase C-Reactive Protein Albumin Triglycerides Arterial Blood Glucose Arterial Blood Ionized Calcium Urine Creatinine Coronavirus (PCR) Crossmatch 01/31/21 01/31/21 01/31/21 14:00 17:10 23:24 WBC RBC Hgb Hct MCV MCH MCHC RDW Plt Count Lymph % (Auto) Lymph # (Auto) Seg Neutrophils % Seg Neuts % (Manual) Lymphocytes % (Manual) Monocytes % (Manual) Nucleated RBC % Seg Neutrophils # Seg Neutrophils # Man Lymphocytes # (Manual) Monocytes # (Manual) Eosinophils # (Manual) INR D-Dimer ABG pH 7.205 L POC ABG pCO2 POC ABG pO2 ABG pO2 90.9 H ABG HCO3 26.5 H ABG O2 Saturation ABG Base Excess -2.7 L ABG Hemoglobin 12.3 L ABG Oxyhemoglobin ABG Sodium ABG Potassium ABG Chloride ABG Glucose Oxyhemoglobin 93.9 L Carboxyhemoglobin Sodium Potassium Chloride Carbon Dioxide BUN Creatinine Glucose POC Glucose 190 H 203 H Hemoglobin A1c Lactic Acid Calcium Phosphorus Magnesium Ferritin Total Bilirubin AST ALT Lactate Dehydrogenase C-Reactive Protein Albumin Triglycerides Arterial Blood Glucose Arterial Blood Ionized Calcium Urine Creatinine Coronavirus (PCR) Crossmatch 02/01/21 02/01/21 02/01/21 05:15 06:22 10:20 WBC RBC Hgb Hct MCV MCH MCHC RDW Plt Count Lymph % (Auto) Lymph # (Auto) Seg Neutrophils % Seg Neuts % (Manual) Lymphocytes % (Manual) Monocytes % (Manual) Nucleated RBC % Seg Neutrophils # Seg Neutrophils # Man Lymphocytes # (Manual) Monocytes # (Manual) Eosinophils # (Manual) INR D-Dimer ABG pH 6.920 L* 7.116 L* POC ABG pCO2 POC ABG pO2 ABG pO2 102.9 H 113.1 H ABG HCO3 28.2 H ABG O2 Saturation 92.9 L ABG Base Excess -6.9 L -5.8 L ABG Hemoglobin 11.6 L 9.5 L ABG Oxyhemoglobin ABG Sodium ABG Potassium ABG Chloride ABG Glucose Oxyhemoglobin 90.5 L 94.6 L Carboxyhemoglobin Sodium Potassium Chloride Carbon Dioxide BUN Creatinine Glucose POC Glucose 221 H Hemoglobin A1c Lactic Acid Calcium Phosphorus Magnesium Ferritin Total Bilirubin AST ALT Lactate Dehydrogenase C-Reactive Protein Albumin Triglycerides Arterial Blood Glucose Arterial Blood Ionized Calcium Urine Creatinine Coronavirus (PCR) Crossmatch 02/01/21 02/01/21 02/01/21 11:12 12:35 16:00 WBC RBC Hgb Hct MCV MCH MCHC RDW Plt Count Lymph % (Auto) Lymph # (Auto) Seg Neutrophils % Seg Neuts % (Manual) Lymphocytes % (Manual) Monocytes % (Manual) Nucleated RBC % Seg Neutrophils # Seg Neutrophils # Man Lymphocytes # (Manual) Monocytes # (Manual) Eosinophils # (Manual) INR D-Dimer ABG pH 7.155 L* POC ABG pCO2 POC ABG pO2 ABG pO2 94.6 H ABG HCO3 ABG O2 Saturation ABG Base Excess -6.5 L ABG Hemoglobin 13.1 L ABG Oxyhemoglobin ABG Sodium ABG Potassium ABG Chloride ABG Glucose Oxyhemoglobin 93.7 L Carboxyhemoglobin Sodium 155 H Potassium 5.1 H Chloride 120.5 H Carbon Dioxide BUN 90 H Creatinine 6.1 H D Glucose 238 H POC Glucose 207 H Hemoglobin A1c Lactic Acid Calcium 7.4 L Phosphorus Magnesium Ferritin Total Bilirubin AST ALT Lactate Dehydrogenase C-Reactive Protein Albumin Triglycerides Arterial Blood Glucose Arterial Blood Ionized Calcium Urine Creatinine Coronavirus (PCR) Crossmatch 02/01/21 02/01/21 02/02/21 17:10 23:47 04:04 WBC RBC 3.02 L Hgb 9.8 L Hct 30.7 L MCV 102 H MCH MCHC RDW 15.6 H Plt Count Lymph % (Auto) 4.2 L Lymph # (Auto) 0.3 L Seg Neutrophils % Seg Neuts % (Manual) Lymphocytes % (Manual) Monocytes % (Manual) Nucleated RBC % Seg Neutrophils # Seg Neutrophils # Man Lymphocytes # (Manual) Monocytes # (Manual) Eosinophils # (Manual) INR D-Dimer ABG pH POC ABG pCO2 POC ABG pO2 ABG pO2 ABG HCO3 ABG O2 Saturation ABG Base Excess ABG Hemoglobin ABG Oxyhemoglobin ABG Sodium ABG Potassium ABG Chloride ABG Glucose Oxyhemoglobin Carboxyhemoglobin Sodium Potassium Chloride Carbon Dioxide BUN Creatinine Glucose POC Glucose 238 H 235 H Hemoglobin A1c Lactic Acid Calcium Phosphorus Magnesium Ferritin Total Bilirubin AST ALT Lactate Dehydrogenase C-Reactive Protein Albumin Triglycerides Arterial Blood Glucose Arterial Blood Ionized Calcium Urine Creatinine Coronavirus (PCR) Crossmatch 02/02/21 02/02/21 02/02/21 05:18 05:35 11:28 WBC RBC Hgb Hct MCV MCH MCHC RDW Plt Count Lymph % (Auto) Lymph # (Auto) Seg Neutrophils % Seg Neuts % (Manual) Lymphocytes % (Manual) Monocytes % (Manual) Nucleated RBC % Seg Neutrophils # Seg Neutrophils # Man Lymphocytes # (Manual) Monocytes # (Manual) Eosinophils # (Manual) INR D-Dimer ABG pH 7.195 L* POC ABG pCO2 POC ABG pO2 ABG pO2 72.5 L ABG HCO3 ABG O2 Saturation 91.2 L ABG Base Excess -5.3 L ABG Hemoglobin 6.0 L ABG Oxyhemoglobin ABG Sodium ABG Potassium ABG Chloride ABG Glucose Oxyhemoglobin 89.1 L Carboxyhemoglobin Sodium Potassium Chloride 110.4 H Carbon Dioxide BUN 92 H Creatinine Glucose POC Glucose 239 H Hemoglobin A1c Lactic Acid Calcium Phosphorus Magnesium Ferritin Total Bilirubin AST ALT Lactate Dehydrogenase C-Reactive Protein Albumin Triglycerides Arterial Blood Glucose Arterial Blood Ionized Calcium Urine Creatinine Coronavirus (PCR) Crossmatch 02/02/21 02/02/21 02/02/21 11:53 16:00 18:04 WBC RBC Hgb Hct MCV MCH MCHC RDW Plt Count Lymph % (Auto) Lymph # (Auto) Seg Neutrophils % Seg Neuts % (Manual) Lymphocytes % (Manual) Monocytes % (Manual) Nucleated RBC % Seg Neutrophils # Seg Neutrophils # Man Lymphocytes # (Manual) Monocytes # (Manual) Eosinophils # (Manual) INR D-Dimer ABG pH POC ABG pCO2 POC ABG pO2 ABG pO2 ABG HCO3 ABG O2 Saturation ABG Base Excess ABG Hemoglobin ABG Oxyhemoglobin ABG Sodium ABG Potassium ABG Chloride ABG Glucose Oxyhemoglobin Carboxyhemoglobin Sodium Potassium Chloride Carbon Dioxide BUN Creatinine Glucose POC Glucose 248 H 199 H Hemoglobin A1c 6.3 H Lactic Acid Calcium Phosphorus Magnesium Ferritin Total Bilirubin AST ALT Lactate Dehydrogenase C-Reactive Protein Albumin Triglycerides Arterial Blood Glucose Arterial Blood Ionized Calcium Urine Creatinine Coronavirus (PCR) Crossmatch 02/02/21 02/03/21 02/03/21 23:31 03:12 04:10 WBC RBC 3.06 L Hgb 9.7 L Hct 30.4 L MCV 99 H MCH MCHC RDW 15.3 H Plt Count Lymph % (Auto) 6.1 L Lymph # (Auto) 0.5 L Seg Neutrophils % 86.1 H Seg Neuts % (Manual) Lymphocytes % (Manual) Monocytes % (Manual) Nucleated RBC % Seg Neutrophils # Seg Neutrophils # Man Lymphocytes # (Manual) Monocytes # (Manual) Eosinophils # (Manual) INR D-Dimer ABG pH 7.199 L POC ABG pCO2 48.3 H POC ABG pO2 68.3 L ABG pO2 ABG HCO3 ABG O2 Saturation ABG Base Excess ABG Hemoglobin 10.2 L ABG Oxyhemoglobin 89.2 L ABG Sodium 155.0 H ABG Potassium 4.6 H ABG Chloride 121.0 H ABG Glucose 166 H Oxyhemoglobin Carboxyhemoglobin 0.3 L Sodium Potassium Chloride Carbon Dioxide BUN Creatinine Glucose POC Glucose 200 H Hemoglobin A1c Lactic Acid Calcium Phosphorus Magnesium Ferritin Total Bilirubin AST ALT Lactate Dehydrogenase C-Reactive Protein Albumin Triglycerides Arterial Blood Glucose 166 H Arterial Blood Ionized Calcium 4.1 L Urine Creatinine Coronavirus (PCR) Crossmatch 02/03/21 02/03/21 02/03/21 04:10 05:34 11:51 WBC RBC Hgb Hct MCV MCH MCHC RDW Plt Count Lymph % (Auto) Lymph # (Auto) Seg Neutrophils % Seg Neuts % (Manual) Lymphocytes % (Manual) Monocytes % (Manual) Nucleated RBC % Seg Neutrophils # Seg Neutrophils # Man Lymphocytes # (Manual) Monocytes # (Manual) Eosinophils # (Manual) INR D-Dimer ABG pH POC ABG pCO2 POC ABG pO2 ABG pO2 ABG HCO3 ABG O2 Saturation ABG Base Excess ABG Hemoglobin ABG Oxyhemoglobin ABG Sodium ABG Potassium ABG Chloride ABG Glucose Oxyhemoglobin Carboxyhemoglobin Sodium 154 H D Potassium Chloride 116.7 H Carbon Dioxide 20 L BUN 130 H Creatinine 9.2 H D Glucose 160 H POC Glucose 130 H 154 H Hemoglobin A1c Lactic Acid Calcium 6.7 L Phosphorus 8.60 H Magnesium Ferritin Total Bilirubin AST ALT Lactate Dehydrogenase C-Reactive Protein Albumin Triglycerides Arterial Blood Glucose Arterial Blood Ionized Calcium Urine Creatinine Coronavirus (PCR) Crossmatch 02/03/21 02/03/21 02/04/21 16:49 23:22 03:48 WBC RBC Hgb Hct MCV MCH MCHC RDW Plt Count Lymph % (Auto) Lymph # (Auto) Seg Neutrophils % Seg Neuts % (Manual) Lymphocytes % (Manual) Monocytes % (Manual) Nucleated RBC % Seg Neutrophils # Seg Neutrophils # Man Lymphocytes # (Manual) Monocytes # (Manual) Eosinophils # (Manual) INR D-Dimer ABG pH 7.201 L POC ABG pCO2 54.5 H POC ABG pO2 74.0 L ABG pO2 ABG HCO3 ABG O2 Saturation ABG Base Excess ABG Hemoglobin 9.7 L ABG Oxyhemoglobin 91.1 L ABG Sodium 146.2 H ABG Potassium ABG Chloride 114.0 H ABG Glucose 155 H Oxyhemoglobin Carboxyhemoglobin Sodium Potassium Chloride Carbon Dioxide BUN Creatinine Glucose POC Glucose 164 H 152 H Hemoglobin A1c Lactic Acid Calcium Phosphorus Magnesium Ferritin Total Bilirubin AST ALT Lactate Dehydrogenase C-Reactive Protein Albumin Triglycerides Arterial Blood Glucose 155 H Arterial Blood Ionized Calcium 3.9 L Urine Creatinine Coronavirus (PCR) Crossmatch 02/04/21 02/04/21 02/04/21 04:45 04:45 04:45 WBC RBC 2.75 L Hgb 9.1 L Hct 26.9 L MCV 98 H MCH 33 H MCHC RDW Plt Count Lymph % (Auto) 6.8 L Lymph # (Auto) 0.5 L Seg Neutrophils % 87.2 H Seg Neuts % (Manual) Lymphocytes % (Manual) Monocytes % (Manual) Nucleated RBC % Seg Neutrophils # Seg Neutrophils # Man Lymphocytes # (Manual) Monocytes # (Manual) Eosinophils # (Manual) INR D-Dimer ABG pH POC ABG pCO2 POC ABG pO2 ABG pO2 ABG HCO3 ABG O2 Saturation ABG Base Excess ABG Hemoglobin ABG Oxyhemoglobin ABG Sodium ABG Potassium ABG Chloride ABG Glucose Oxyhemoglobin Carboxyhemoglobin Sodium 149 H Potassium Chloride 111.5 H Carbon Dioxide BUN 99 H Creatinine 8.5 H Glucose 139 H POC Glucose Hemoglobin A1c Lactic Acid Calcium 6.8 L Phosphorus 8.40 H Magnesium Ferritin Total Bilirubin AST ALT Lactate Dehydrogenase C-Reactive Protein Albumin Triglycerides Arterial Blood Glucose Arterial Blood Ionized Calcium Urine Creatinine Coronavirus (PCR) Crossmatch 02/04/21 02/04/21 02/04/21 06:05 11:44 18:00 WBC RBC Hgb Hct MCV MCH MCHC RDW Plt Count Lymph % (Auto) Lymph # (Auto) Seg Neutrophils % Seg Neuts % (Manual) Lymphocytes % (Manual) Monocytes % (Manual) Nucleated RBC % Seg Neutrophils # Seg Neutrophils # Man Lymphocytes # (Manual) Monocytes # (Manual) Eosinophils # (Manual) INR D-Dimer ABG pH POC ABG pCO2 POC ABG pO2 ABG pO2 ABG HCO3 ABG O2 Saturation ABG Base Excess ABG Hemoglobin ABG Oxyhemoglobin ABG Sodium ABG Potassium ABG Chloride ABG Glucose Oxyhemoglobin Carboxyhemoglobin Sodium Potassium Chloride Carbon Dioxide BUN Creatinine Glucose POC Glucose 138 H 129 H 163 H Hemoglobin A1c Lactic Acid Calcium Phosphorus Magnesium Ferritin Total Bilirubin AST ALT Lactate Dehydrogenase C-Reactive Protein Albumin Triglycerides Arterial Blood Glucose Arterial Blood Ionized Calcium Urine Creatinine Coronavirus (PCR) Crossmatch 02/04/21 02/05/21 02/05/21 23:48 01:50 01:50 WBC RBC 2.43 L Hgb 8.3 L Hct 23.6 L MCV 97 H MCH 34 H MCHC 35 H RDW Plt Count 137 L Lymph % (Auto) 8.4 L Lymph # (Auto) 0.6 L Seg Neutrophils % 86.1 H Seg Neuts % (Manual) Lymphocytes % (Manual) Monocytes % (Manual) Nucleated RBC % Seg Neutrophils # Seg Neutrophils # Man Lymphocytes # (Manual) Monocytes # (Manual) Eosinophils # (Manual) INR D-Dimer ABG pH POC ABG pCO2 POC ABG pO2 ABG pO2 ABG HCO3 ABG O2 Saturation ABG Base Excess ABG Hemoglobin ABG Oxyhemoglobin ABG Sodium ABG Potassium ABG Chloride ABG Glucose Oxyhemoglobin Carboxyhemoglobin Sodium Potassium Chloride Carbon Dioxide BUN Creatinine Glucose POC Glucose 157 H Hemoglobin A1c Lactic Acid Calcium Phosphorus 5.60 H D Magnesium Ferritin Total Bilirubin AST ALT Lactate Dehydrogenase C-Reactive Protein Albumin Triglycerides Arterial Blood Glucose Arterial Blood Ionized Calcium Urine Creatinine Coronavirus (PCR) Crossmatch 02/05/21 02/05/21 02/05/21 03:44 05:27 09:15 WBC RBC Hgb Hct MCV MCH MCHC RDW Plt Count Lymph % (Auto) Lymph # (Auto) Seg Neutrophils % Seg Neuts % (Manual) Lymphocytes % (Manual) Monocytes % (Manual) Nucleated RBC % Seg Neutrophils # Seg Neutrophils # Man Lymphocytes # (Manual) Monocytes # (Manual) Eosinophils # (Manual) INR D-Dimer ABG pH 7.202 L POC ABG pCO2 63.7 H POC ABG pO2 69.0 L ABG pO2 ABG HCO3 ABG O2 Saturation ABG Base Excess ABG Hemoglobin 9.4 L ABG Oxyhemoglobin ABG Sodium ABG Potassium ABG Chloride 108.0 H ABG Glucose 186 H Oxyhemoglobin Carboxyhemoglobin Sodium Potassium Chloride Carbon Dioxide BUN 78 H Creatinine 8.0 H Glucose 163 H POC Glucose 157 H Hemoglobin A1c Lactic Acid Calcium 6.3 L Phosphorus Magnesium Ferritin Total Bilirubin AST ALT Lactate Dehydrogenase C-Reactive Protein Albumin Triglycerides Arterial Blood Glucose 186 H Arterial Blood Ionized Calcium 3.9 L Urine Creatinine Coronavirus (PCR) Crossmatch 02/05/21 02/05/21 02/05/21 11:47 17:39 23:40 WBC RBC Hgb Hct MCV MCH MCHC RDW Plt Count Lymph % (Auto) Lymph # (Auto) Seg Neutrophils % Seg Neuts % (Manual) Lymphocytes % (Manual) Monocytes % (Manual) Nucleated RBC % Seg Neutrophils # Seg Neutrophils # Man Lymphocytes # (Manual) Monocytes # (Manual) Eosinophils # (Manual) INR D-Dimer ABG pH 7.273 L POC ABG pCO2 62.1 H POC ABG pO2 72.0 L ABG pO2 ABG HCO3 ABG O2 Saturation ABG Base Excess ABG Hemoglobin 9.1 L ABG Oxyhemoglobin 91.3 L ABG Sodium ABG Potassium 3.1 L ABG Chloride ABG Glucose 125 H Oxyhemoglobin Carboxyhemoglobin Sodium Potassium Chloride Carbon Dioxide BUN Creatinine Glucose POC Glucose 126 H 126 H Hemoglobin A1c Lactic Acid Calcium Phosphorus Magnesium Ferritin Total Bilirubin AST ALT Lactate Dehydrogenase C-Reactive Protein Albumin Triglycerides Arterial Blood Glucose 125 H Arterial Blood Ionized Calcium 4.0 L Urine Creatinine Coronavirus (PCR) Crossmatch 02/06/21 02/06/21 02/06/21 04:30 04:57 09:45 WBC RBC Hgb Hct MCV MCH MCHC RDW Plt Count Lymph % (Auto) Lymph # (Auto) Seg Neutrophils % Seg Neuts % (Manual) Lymphocytes % (Manual) Monocytes % (Manual) Nucleated RBC % Seg Neutrophils # Seg Neutrophils # Man Lymphocytes # (Manual) Monocytes # (Manual) Eosinophils # (Manual) INR D-Dimer ABG pH 7.159 L 7.138 L* POC ABG pCO2 76.3 H POC ABG pO2 66.9 L ABG pO2 ABG HCO3 ABG O2 Saturation 93.4 L ABG Base Excess -6.0 L ABG Hemoglobin 11.2 L 11.7 L ABG Oxyhemoglobin 88.2 L ABG Sodium ABG Potassium ABG Chloride ABG Glucose 134 H Oxyhemoglobin 91.2 L Carboxyhemoglobin Sodium Potassium Chloride Carbon Dioxide BUN Creatinine Glucose POC Glucose 124 H Hemoglobin A1c Lactic Acid Calcium Phosphorus Magnesium Ferritin Total Bilirubin AST ALT Lactate Dehydrogenase C-Reactive Protein Albumin Triglycerides Arterial Blood Glucose 134 H Arterial Blood Ionized Calcium 3.9 L Urine Creatinine Coronavirus (PCR) Crossmatch 02/06/21 02/06/21 02/06/21 11:11 17:00 17:00 WBC RBC Hgb Hct MCV MCH MCHC RDW Plt Count Lymph % (Auto) Lymph # (Auto) Seg Neutrophils % Seg Neuts % (Manual) Lymphocytes % (Manual) Monocytes % (Manual) Nucleated RBC % Seg Neutrophils # Seg Neutrophils # Man Lymphocytes # (Manual) Monocytes # (Manual) Eosinophils # (Manual) INR D-Dimer ABG pH 7.158 L* POC ABG pCO2 POC ABG pO2 ABG pO2 109.8 H ABG HCO3 28.7 H ABG O2 Saturation ABG Base Excess -2.5 L ABG Hemoglobin ABG Oxyhemoglobin ABG Sodium ABG Potassium ABG Chloride ABG Glucose Oxyhemoglobin 94.5 L Carboxyhemoglobin Sodium Potassium Chloride Carbon Dioxide BUN Creatinine Glucose POC Glucose 120 H Hemoglobin A1c Lactic Acid Calcium Phosphorus Magnesium Ferritin Total Bilirubin AST ALT Lactate Dehydrogenase C-Reactive Protein Albumin Triglycerides 503 H Arterial Blood Glucose Arterial Blood Ionized Calcium Urine Creatinine Coronavirus (PCR) Crossmatch 02/06/21 02/06/21 02/06/21 17:28 20:16 Unknown WBC 13.5 H RBC 2.98 L Hgb 9.3 L Hct 28.6 L MCV 96 H MCH MCHC RDW Plt Count Lymph % (Auto) Lymph # (Auto) Seg Neutrophils % Seg Neuts % (Manual) 87.0 H Lymphocytes % (Manual) 7.0 L Monocytes % (Manual) Nucleated RBC % Seg Neutrophils # Seg Neutrophils # Man 11.7 H Lymphocytes # (Manual) 0.9 L Monocytes # (Manual) Eosinophils # (Manual) 0.5 H INR D-Dimer ABG pH POC ABG pCO2 POC ABG pO2 ABG pO2 ABG HCO3 ABG O2 Saturation ABG Base Excess ABG Hemoglobin ABG Oxyhemoglobin ABG Sodium ABG Potassium ABG Chloride ABG Glucose Oxyhemoglobin Carboxyhemoglobin Sodium Potassium Chloride Carbon Dioxide BUN Creatinine Glucose POC Glucose 147 H 164 H Hemoglobin A1c Lactic Acid Calcium Phosphorus Magnesium Ferritin Total Bilirubin AST ALT Lactate Dehydrogenase C-Reactive Protein Albumin Triglycerides Arterial Blood Glucose Arterial Blood Ionized Calcium Urine Creatinine Coronavirus (PCR) Crossmatch 02/06/21 02/07/21 02/07/21 Unknown 01:21 04:00 WBC 12.0 H RBC 2.61 L Hgb 8.2 L Hct 24.5 L MCV MCH MCHC RDW Plt Count Lymph % (Auto) 8.9 L Lymph # (Auto) 1.1 L Seg Neutrophils % 86.3 H Seg Neuts % (Manual) Lymphocytes % (Manual) Monocytes % (Manual) Nucleated RBC % Seg Neutrophils # 10.3 H Seg Neutrophils # Man Lymphocytes # (Manual) Monocytes # (Manual) Eosinophils # (Manual) INR D-Dimer ABG pH POC ABG pCO2 POC ABG pO2 ABG pO2 ABG HCO3 ABG O2 Saturation ABG Base Excess ABG Hemoglobin ABG Oxyhemoglobin ABG Sodium ABG Potassium ABG Chloride ABG Glucose Oxyhemoglobin Carboxyhemoglobin Sodium Potassium 3.5 L Chloride Carbon Dioxide BUN 58 H Creatinine 6.6 H Glucose 107 H POC Glucose 173 H Hemoglobin A1c Lactic Acid Calcium 6.7 L Phosphorus 8.00 H D Magnesium Ferritin Total Bilirubin AST ALT Lactate Dehydrogenase C-Reactive Protein Albumin Triglycerides Arterial Blood Glucose Arterial Blood Ionized Calcium Urine Creatinine Coronavirus (PCR) Crossmatch 02/07/21 02/07/21 02/07/21 04:00 04:45 11:49 WBC RBC Hgb Hct MCV MCH MCHC RDW Plt Count Lymph % (Auto) Lymph # (Auto) Seg Neutrophils % Seg Neuts % (Manual) Lymphocytes % (Manual) Monocytes % (Manual) Nucleated RBC % Seg Neutrophils # Seg Neutrophils # Man Lymphocytes # (Manual) Monocytes # (Manual) Eosinophils # (Manual) INR D-Dimer ABG pH 7.287 L POC ABG pCO2 64.8 H POC ABG pO2 74.0 L ABG pO2 ABG HCO3 ABG O2 Saturation ABG Base Excess ABG Hemoglobin 9.1 L ABG Oxyhemoglobin 92.0 L ABG Sodium ABG Potassium 2.8 L ABG Chloride ABG Glucose 226 H Oxyhemoglobin Carboxyhemoglobin Sodium Potassium Chloride Carbon Dioxide BUN Creatinine Glucose POC Glucose 170 H Hemoglobin A1c Lactic Acid Calcium Phosphorus 5.50 H D Magnesium Ferritin Total Bilirubin AST ALT Lactate Dehydrogenase C-Reactive Protein Albumin Triglycerides Arterial Blood Glucose 226 H Arterial Blood Ionized Calcium 3.7 L Urine Creatinine Coronavirus (PCR) Crossmatch 02/07/21 02/07/21 02/07/21 13:48 17:45 23:02 WBC RBC Hgb Hct MCV MCH MCHC RDW Plt Count Lymph % (Auto) Lymph # (Auto) Seg Neutrophils % Seg Neuts % (Manual) Lymphocytes % (Manual) Monocytes % (Manual) Nucleated RBC % Seg Neutrophils # Seg Neutrophils # Man Lymphocytes # (Manual) Monocytes # (Manual) Eosinophils # (Manual) INR D-Dimer ABG pH POC ABG pCO2 POC ABG pO2 ABG pO2 ABG HCO3 ABG O2 Saturation ABG Base Excess ABG Hemoglobin ABG Oxyhemoglobin ABG Sodium ABG Potassium ABG Chloride ABG Glucose Oxyhemoglobin Carboxyhemoglobin Sodium 136 L Potassium 2.6 L* D Chloride 95.1 L Carbon Dioxide 33 H D BUN 30 H Creatinine 3.6 H Glucose 184 H POC Glucose 172 H 172 H Hemoglobin A1c Lactic Acid Calcium 6.9 L Phosphorus Magnesium Ferritin Total Bilirubin AST ALT Lactate Dehydrogenase C-Reactive Protein Albumin Triglycerides Arterial Blood Glucose Arterial Blood Ionized Calcium Urine Creatinine Coronavirus (PCR) Crossmatch 02/08/21 02/08/21 02/08/21 05:22 06:00 06:00 WBC RBC 2.21 L Hgb 7.2 L Hct 21.0 L MCV 95 H MCH MCHC RDW Plt Count Lymph % (Auto) Lymph # (Auto) Seg Neutrophils % Seg Neuts % (Manual) 87.0 H Lymphocytes % (Manual) 4.0 L Monocytes % (Manual) Nucleated RBC % Seg Neutrophils # Seg Neutrophils # Man 8.5 H Lymphocytes # (Manual) 0.4 L Monocytes # (Manual) Eosinophils # (Manual) INR D-Dimer ABG pH POC ABG pCO2 POC ABG pO2 ABG pO2 ABG HCO3 ABG O2 Saturation ABG Base Excess ABG Hemoglobin ABG Oxyhemoglobin ABG Sodium ABG Potassium ABG Chloride ABG Glucose Oxyhemoglobin Carboxyhemoglobin Sodium 136 L Potassium 2.4 L* Chloride 93.1 L Carbon Dioxide 36 H BUN 43 H Creatinine 5.4 H Glucose 167 H POC Glucose 162 H Hemoglobin A1c Lactic Acid Calcium 6.3 L Phosphorus Magnesium Ferritin Total Bilirubin AST ALT Lactate Dehydrogenase C-Reactive Protein Albumin Triglycerides Arterial Blood Glucose Arterial Blood Ionized Calcium Urine Creatinine Coronavirus (PCR) Crossmatch 02/08/21 02/08/21 02/08/21 11:44 17:53 18:56 WBC RBC Hgb Hct MCV MCH MCHC RDW Plt Count Lymph % (Auto) Lymph # (Auto) Seg Neutrophils % Seg Neuts % (Manual) Lymphocytes % (Manual) Monocytes % (Manual) Nucleated RBC % Seg Neutrophils # Seg Neutrophils # Man Lymphocytes # (Manual) Monocytes # (Manual) Eosinophils # (Manual) INR D-Dimer ABG pH POC ABG pCO2 POC ABG pO2 ABG pO2 ABG HCO3 ABG O2 Saturation ABG Base Excess ABG Hemoglobin ABG Oxyhemoglobin ABG Sodium ABG Potassium ABG Chloride ABG Glucose Oxyhemoglobin Carboxyhemoglobin Sodium Potassium 2.9 L* D Chloride Carbon Dioxide BUN Creatinine Glucose POC Glucose 164 H 154 H Hemoglobin A1c Lactic Acid Calcium Phosphorus Magnesium Ferritin Total Bilirubin AST ALT Lactate Dehydrogenase C-Reactive Protein Albumin Triglycerides Arterial Blood Glucose Arterial Blood Ionized Calcium Urine Creatinine Coronavirus (PCR) Crossmatch 02/08/21 02/08/21 02/09/21 23:24 23:58 03:21 WBC RBC Hgb Hct MCV MCH MCHC RDW Plt Count Lymph % (Auto) Lymph # (Auto) Seg Neutrophils % Seg Neuts % (Manual) Lymphocytes % (Manual) Monocytes % (Manual) Nucleated RBC % Seg Neutrophils # Seg Neutrophils # Man Lymphocytes # (Manual) Monocytes # (Manual) Eosinophils # (Manual) INR D-Dimer ABG pH 7.319 L POC ABG pCO2 63.3 H 68.3 H POC ABG pO2 71.2 L 76.5 L ABG pO2 ABG HCO3 ABG O2 Saturation ABG Base Excess ABG Hemoglobin 8.2 L 7.0 L ABG Oxyhemoglobin 91.8 L 92.2 L ABG Sodium 134.6 L 133.0 L ABG Potassium 2.3 L 3.1 L ABG Chloride 96.0 L 95.0 L ABG Glucose 184 H 154 H Oxyhemoglobin Carboxyhemoglobin Sodium Potassium Chloride Carbon Dioxide BUN Creatinine Glucose POC Glucose 152 H Hemoglobin A1c Lactic Acid Calcium Phosphorus Magnesium Ferritin Total Bilirubin AST ALT Lactate Dehydrogenase C-Reactive Protein Albumin Triglycerides Arterial Blood Glucose 184 H 154 H Arterial Blood Ionized Calcium 3.6 L 3.5 L Urine Creatinine Coronavirus (PCR) Crossmatch 02/09/21 02/09/21 02/09/21 05:10 05:10 06:04 WBC RBC 2.14 L Hgb 7.0 L Hct 20.5 L MCV 96 H MCH 33 H MCHC RDW Plt Count Lymph % (Auto) Lymph # (Auto) Seg Neutrophils % Seg Neuts % (Manual) 82.0 H Lymphocytes % (Manual) 9.0 L Monocytes % (Manual) Nucleated RBC % 1.0 H Seg Neutrophils # Seg Neutrophils # Man 8.9 H Lymphocytes # (Manual) 1.0 L Monocytes # (Manual) Eosinophils # (Manual) INR D-Dimer ABG pH POC ABG pCO2 POC ABG pO2 ABG pO2 ABG HCO3 ABG O2 Saturation ABG Base Excess ABG Hemoglobin ABG Oxyhemoglobin ABG Sodium ABG Potassium ABG Chloride ABG Glucose Oxyhemoglobin Carboxyhemoglobin Sodium 135 L Potassium 3.2 L Chloride 91.0 L Carbon Dioxide 32 H BUN 54 H Creatinine 6.6 H Glucose 163 H POC Glucose 149 H Hemoglobin A1c Lactic Acid Calcium 6.2 L Phosphorus Magnesium Ferritin Total Bilirubin AST ALT Lactate Dehydrogenase C-Reactive Protein Albumin Triglycerides Arterial Blood Glucose Arterial Blood Ionized Calcium Urine Creatinine Coronavirus (PCR) Crossmatch 02/09/21 02/09/21 02/09/21 12:02 13:32 13:40 WBC RBC Hgb Hct MCV MCH MCHC RDW Plt Count Lymph % (Auto) Lymph # (Auto) Seg Neutrophils % Seg Neuts % (Manual) Lymphocytes % (Manual) Monocytes % (Manual) Nucleated RBC % Seg Neutrophils # Seg Neutrophils # Man Lymphocytes # (Manual) Monocytes # (Manual) Eosinophils # (Manual) INR D-Dimer ABG pH POC ABG pCO2 POC ABG pO2 ABG pO2 ABG HCO3 ABG O2 Saturation ABG Base Excess ABG Hemoglobin ABG Oxyhemoglobin ABG Sodium ABG Potassium ABG Chloride ABG Glucose Oxyhemoglobin Carboxyhemoglobin Sodium Potassium Chloride Carbon Dioxide BUN Creatinine Glucose POC Glucose 147 H Hemoglobin A1c Lactic Acid Calcium Phosphorus Magnesium Ferritin Total Bilirubin AST ALT Lactate Dehydrogenase C-Reactive Protein Albumin Triglycerides 250 H Arterial Blood Glucose Arterial Blood Ionized Calcium Urine Creatinine Coronavirus (PCR) Crossmatch See Detail 02/09/21 02/09/21 02/10/21 18:06 23:42 04:00 WBC RBC Hgb Hct MCV MCH MCHC RDW Plt Count Lymph % (Auto) Lymph # (Auto) Seg Neutrophils % Seg Neuts % (Manual) Lymphocytes % (Manual) Monocytes % (Manual) Nucleated RBC % Seg Neutrophils # Seg Neutrophils # Man Lymphocytes # (Manual) Monocytes # (Manual) Eosinophils # (Manual) INR D-Dimer ABG pH POC ABG pCO2 65.8 H POC ABG pO2 68.0 L ABG pO2 ABG HCO3 ABG O2 Saturation ABG Base Excess ABG Hemoglobin 8.3 L ABG Oxyhemoglobin ABG Sodium 132.4 L ABG Potassium 2.9 L ABG Chloride 92.0 L ABG Glucose 174 H Oxyhemoglobin Carboxyhemoglobin Sodium Potassium Chloride Carbon Dioxide BUN Creatinine Glucose POC Glucose 152 H 147 H Hemoglobin A1c Lactic Acid Calcium Phosphorus Magnesium Ferritin Total Bilirubin AST ALT Lactate Dehydrogenase C-Reactive Protein Albumin Triglycerides Arterial Blood Glucose 174 H Arterial Blood Ionized Calcium 3.4 L Urine Creatinine Coronavirus (PCR) Crossmatch 02/10/21 02/10/21 02/10/21 05:32 11:29 14:08 WBC 12.5 H RBC 2.14 L Hgb 6.6 L Hct 20.2 L MCV MCH MCHC RDW Plt Count Lymph % (Auto) Lymph # (Auto) Seg Neutrophils % Seg Neuts % (Manual) Lymphocytes % (Manual) Monocytes % (Manual) Nucleated RBC % Seg Neutrophils # Seg Neutrophils # Man Lymphocytes # (Manual) Monocytes # (Manual) Eosinophils # (Manual) INR D-Dimer ABG pH POC ABG pCO2 POC ABG pO2 ABG pO2 ABG HCO3 ABG O2 Saturation ABG Base Excess ABG Hemoglobin ABG Oxyhemoglobin ABG Sodium ABG Potassium ABG Chloride ABG Glucose Oxyhemoglobin Carboxyhemoglobin Sodium Potassium Chloride Carbon Dioxide BUN Creatinine Glucose POC Glucose 167 H 147 H Hemoglobin A1c Lactic Acid Calcium Phosphorus Magnesium Ferritin Total Bilirubin AST ALT Lactate Dehydrogenase C-Reactive Protein Albumin Triglycerides Arterial Blood Glucose Arterial Blood Ionized Calcium Urine Creatinine Coronavirus (PCR) Crossmatch 02/10/21 02/10/21 02/10/21 14:08 18:11 22:32 WBC RBC Hgb 6.4 L Hct 19.1 L* MCV MCH MCHC RDW Plt Count Lymph % (Auto) Lymph # (Auto) Seg Neutrophils % Seg Neuts % (Manual) Lymphocytes % (Manual) Monocytes % (Manual) Nucleated RBC % Seg Neutrophils # Seg Neutrophils # Man Lymphocytes # (Manual) Monocytes # (Manual) Eosinophils # (Manual) INR D-Dimer ABG pH POC ABG pCO2 POC ABG pO2 ABG pO2 ABG HCO3 ABG O2 Saturation ABG Base Excess ABG Hemoglobin ABG Oxyhemoglobin ABG Sodium ABG Potassium ABG Chloride ABG Glucose Oxyhemoglobin Carboxyhemoglobin Sodium 136 L Potassium 2.9 L* Chloride 90.2 L Carbon Dioxide 33 H BUN 42 H Creatinine 7.5 H Glucose 155 H POC Glucose 173 H Hemoglobin A1c Lactic Acid Calcium 6.1 L Phosphorus Magnesium Ferritin Total Bilirubin AST ALT Lactate Dehydrogenase C-Reactive Protein Albumin Triglycerides Arterial Blood Glucose Arterial Blood Ionized Calcium Urine Creatinine Coronavirus (PCR) Crossmatch 02/11/21 02/11/21 02/11/21 00:28 04:05 04:30 WBC RBC Hgb Hct MCV MCH MCHC RDW Plt Count Lymph % (Auto) Lymph # (Auto) Seg Neutrophils % Seg Neuts % (Manual) Lymphocytes % (Manual) Monocytes % (Manual) Nucleated RBC % Seg Neutrophils # Seg Neutrophils # Man Lymphocytes # (Manual) Monocytes # (Manual) Eosinophils # (Manual) INR D-Dimer ABG pH 7.307 L POC ABG pCO2 72.2 H POC ABG pO2 72.3 L ABG pO2 ABG HCO3 ABG O2 Saturation ABG Base Excess ABG Hemoglobin 8.2 L ABG Oxyhemoglobin ABG Sodium 132.3 L ABG Potassium 3.2 L ABG Chloride 91.0 L ABG Glucose 197 H Oxyhemoglobin Carboxyhemoglobin Sodium 135 L Potassium 3.3 L Chloride 87.1 L Carbon Dioxide 36 H BUN 71 H Creatinine 7.9 H Glucose 263 H POC Glucose 192 H Hemoglobin A1c Lactic Acid Calcium 6.2 L Phosphorus Magnesium Ferritin Total Bilirubin AST ALT Lactate Dehydrogenase C-Reactive Protein Albumin Triglycerides Arterial Blood Glucose 197 H Arterial Blood Ionized Calcium 3.3 L Urine Creatinine Coronavirus (PCR) Crossmatch 02/11/21 02/11/21 02/11/21 04:30 05:47 08:27 WBC RBC 2.22 L Hgb 7.2 L Hct 21.0 L MCV MCH MCHC RDW Plt Count Lymph % (Auto) 8.7 L Lymph # (Auto) 0.9 L Seg Neutrophils % 85.5 H Seg Neuts % (Manual) Lymphocytes % (Manual) Monocytes % (Manual) Nucleated RBC % Seg Neutrophils # 9.2 H Seg Neutrophils # Man Lymphocytes # (Manual) Monocytes # (Manual) Eosinophils # (Manual) INR 1.17 H D-Dimer 1930.92 H ABG pH POC ABG pCO2 POC ABG pO2 ABG pO2 ABG HCO3 ABG O2 Saturation ABG Base Excess ABG Hemoglobin ABG Oxyhemoglobin ABG Sodium ABG Potassium ABG Chloride ABG Glucose Oxyhemoglobin Carboxyhemoglobin Sodium Potassium Chloride Carbon Dioxide BUN Creatinine Glucose POC Glucose 189 H Hemoglobin A1c Lactic Acid Calcium Phosphorus Magnesium Ferritin Total Bilirubin AST ALT Lactate Dehydrogenase C-Reactive Protein Albumin Triglycerides Arterial Blood Glucose Arterial Blood Ionized Calcium Urine Creatinine Coronavirus (PCR) Crossmatch 02/11/21 02/11/21 02/11/21 09:00 09:00 13:18 WBC RBC Hgb Hct MCV MCH MCHC RDW Plt Count Lymph % (Auto) Lymph # (Auto) Seg Neutrophils % Seg Neuts % (Manual) Lymphocytes % (Manual) Monocytes % (Manual) Nucleated RBC % Seg Neutrophils # Seg Neutrophils # Man Lymphocytes # (Manual) Monocytes # (Manual) Eosinophils # (Manual) INR D-Dimer ABG pH POC ABG pCO2 POC ABG pO2 ABG pO2 ABG HCO3 ABG O2 Saturation ABG Base Excess ABG Hemoglobin ABG Oxyhemoglobin ABG Sodium ABG Potassium ABG Chloride ABG Glucose Oxyhemoglobin Carboxyhemoglobin Sodium Potassium Chloride Carbon Dioxide BUN Creatinine Glucose 126 H POC Glucose 160 H Hemoglobin A1c Lactic Acid Calcium Phosphorus Magnesium Ferritin 1253.0 H Total Bilirubin AST ALT Lactate Dehydrogenase 649 H C-Reactive Protein 12.60 H Albumin Triglycerides Arterial Blood Glucose Arterial Blood Ionized Calcium Urine Creatinine Coronavirus (PCR) Crossmatch 02/11/21 02/11/21 02/11/21 14:30 16:59 22:34 WBC RBC Hgb 7.1 L 6.7 L Hct 20.5 L 19.9 L* MCV MCH MCHC RDW Plt Count Lymph % (Auto) Lymph # (Auto) Seg Neutrophils % Seg Neuts % (Manual) Lymphocytes % (Manual) Monocytes % (Manual) Nucleated RBC % Seg Neutrophils # Seg Neutrophils # Man Lymphocytes # (Manual) Monocytes # (Manual) Eosinophils # (Manual) INR D-Dimer ABG pH POC ABG pCO2 POC ABG pO2 ABG pO2 ABG HCO3 ABG O2 Saturation ABG Base Excess ABG Hemoglobin ABG Oxyhemoglobin ABG Sodium ABG Potassium ABG Chloride ABG Glucose Oxyhemoglobin Carboxyhemoglobin Sodium Potassium Chloride Carbon Dioxide BUN Creatinine Glucose POC Glucose 151 H Hemoglobin A1c Lactic Acid Calcium Phosphorus Magnesium Ferritin Total Bilirubin AST ALT Lactate Dehydrogenase C-Reactive Protein Albumin Triglycerides Arterial Blood Glucose Arterial Blood Ionized Calcium Urine Creatinine Coronavirus (PCR) Crossmatch 02/11/21 02/12/21 02/12/21 23:42 04:41 05:19 WBC RBC Hgb Hct MCV MCH MCHC RDW Plt Count Lymph % (Auto) Lymph # (Auto) Seg Neutrophils % Seg Neuts % (Manual) Lymphocytes % (Manual) Monocytes % (Manual) Nucleated RBC % Seg Neutrophils # Seg Neutrophils # Man Lymphocytes # (Manual) Monocytes # (Manual) Eosinophils # (Manual) INR D-Dimer ABG pH POC ABG pCO2 POC ABG pO2 ABG pO2 69.0 L ABG HCO3 32.5 H ABG O2 Saturation ABG Base Excess 7.7 H ABG Hemoglobin 5.1 L ABG Oxyhemoglobin ABG Sodium ABG Potassium ABG Chloride ABG Glucose Oxyhemoglobin 94.7 L Carboxyhemoglobin Sodium Potassium Chloride Carbon Dioxide BUN Creatinine Glucose POC Glucose 165 H 153 H Hemoglobin A1c Lactic Acid Calcium Phosphorus Magnesium Ferritin Total Bilirubin AST ALT Lactate Dehydrogenase C-Reactive Protein Albumin Triglycerides Arterial Blood Glucose Arterial Blood Ionized Calcium Urine Creatinine Coronavirus (PCR) Crossmatch 02/12/21 02/12/21 02/12/21 06:35 06:35 08:40 WBC RBC 2.21 L Hgb 7.2 L Hct 20.7 L MCV MCH 33 H MCHC 35 H RDW Plt Count Lymph % (Auto) Lymph # (Auto) Seg Neutrophils % Seg Neuts % (Manual) Lymphocytes % (Manual) Monocytes % (Manual) Nucleated RBC % Seg Neutrophils # Seg Neutrophils # Man Lymphocytes # (Manual) Monocytes # (Manual) Eosinophils # (Manual) INR D-Dimer ABG pH POC ABG pCO2 POC ABG pO2 ABG pO2 ABG HCO3 ABG O2 Saturation ABG Base Excess ABG Hemoglobin ABG Oxyhemoglobin ABG Sodium ABG Potassium ABG Chloride ABG Glucose Oxyhemoglobin Carboxyhemoglobin Sodium 135 L Potassium 3.4 L Chloride 91.8 L Carbon Dioxide 36 H BUN 57 H Creatinine 6.8 H Glucose 163 H POC Glucose Hemoglobin A1c Lactic Acid Calcium 7.0 L Phosphorus Magnesium 1.60 L Ferritin Total Bilirubin AST ALT Lactate Dehydrogenase C-Reactive Protein Albumin Triglycerides Arterial Blood Glucose Arterial Blood Ionized Calcium Urine Creatinine Coronavirus (PCR) Crossmatch 02/12/21 02/12/21 02/12/21 10:45 12:04 17:19 WBC RBC Hgb Hct MCV MCH MCHC RDW Plt Count Lymph % (Auto) Lymph # (Auto) Seg Neutrophils % Seg Neuts % (Manual) Lymphocytes % (Manual) Monocytes % (Manual) Nucleated RBC % Seg Neutrophils # Seg Neutrophils # Man Lymphocytes # (Manual) Monocytes # (Manual) Eosinophils # (Manual) INR D-Dimer ABG pH POC ABG pCO2 POC ABG pO2 ABG pO2 ABG HCO3 ABG O2 Saturation ABG Base Excess ABG Hemoglobin ABG Oxyhemoglobin ABG Sodium ABG Potassium ABG Chloride ABG Glucose Oxyhemoglobin Carboxyhemoglobin Sodium Potassium Chloride Carbon Dioxide BUN Creatinine Glucose POC Glucose 165 H 165 H Hemoglobin A1c Lactic Acid Calcium Phosphorus Magnesium Ferritin Total Bilirubin AST ALT Lactate Dehydrogenase C-Reactive Protein Albumin Triglycerides 182 H Arterial Blood Glucose Arterial Blood Ionized Calcium Urine Creatinine Coronavirus (PCR) Crossmatch 02/12/21 02/13/21 02/13/21 23:18 05:00 05:36 WBC RBC Hgb Hct MCV MCH MCHC RDW Plt Count Lymph % (Auto) Lymph # (Auto) Seg Neutrophils % Seg Neuts % (Manual) Lymphocytes % (Manual) Monocytes % (Manual) Nucleated RBC % Seg Neutrophils # Seg Neutrophils # Man Lymphocytes # (Manual) Monocytes # (Manual) Eosinophils # (Manual) INR D-Dimer ABG pH POC ABG pCO2 60.8 H POC ABG pO2 76.4 L ABG pO2 ABG HCO3 ABG O2 Saturation ABG Base Excess ABG Hemoglobin 7.4 L ABG Oxyhemoglobin ABG Sodium 133.2 L ABG Potassium 3.3 L ABG Chloride 96.0 L ABG Glucose 168 H Oxyhemoglobin Carboxyhemoglobin Sodium Potassium Chloride Carbon Dioxide BUN Creatinine Glucose POC Glucose 163 H 151 H Hemoglobin A1c Lactic Acid Calcium Phosphorus Magnesium Ferritin Total Bilirubin AST ALT Lactate Dehydrogenase C-Reactive Protein Albumin Triglycerides Arterial Blood Glucose 168 H Arterial Blood Ionized Calcium 4.3 L Urine Creatinine Coronavirus (PCR) Crossmatch 02/13/21 02/13/21 02/13/21 06:40 06:40 06:40 WBC RBC 2.19 L Hgb 7.0 L Hct 20.8 L MCV 95 H MCH MCHC RDW Plt Count Lymph % (Auto) Lymph # (Auto) Seg Neutrophils % Seg Neuts % (Manual) Lymphocytes % (Manual) Monocytes % (Manual) Nucleated RBC % Seg Neutrophils # Seg Neutrophils # Man Lymphocytes # (Manual) Monocytes # (Manual) Eosinophils # (Manual) INR D-Dimer ABG pH POC ABG pCO2 POC ABG pO2 ABG pO2 ABG HCO3 ABG O2 Saturation ABG Base Excess ABG Hemoglobin ABG Oxyhemoglobin ABG Sodium ABG Potassium ABG Chloride ABG Glucose Oxyhemoglobin Carboxyhemoglobin Sodium 135 L Potassium 3.4 L Chloride 93.0 L Carbon Dioxide 32 H BUN 46 H Creatinine 5.8 H Glucose 148 H POC Glucose Hemoglobin A1c Lactic Acid Calcium 7.9 L Phosphorus Magnesium Ferritin Total Bilirubin AST ALT Lactate Dehydrogenase C-Reactive Protein 16.80 H Albumin Triglycerides Arterial Blood Glucose Arterial Blood Ionized Calcium Urine Creatinine Coronavirus (PCR) Crossmatch 02/13/21 02/13/21 02/13/21 06:40 07:38 07:38 WBC RBC Hgb Hct MCV MCH MCHC RDW Plt Count Lymph % (Auto) Lymph # (Auto) Seg Neutrophils % Seg Neuts % (Manual) Lymphocytes % (Manual) Monocytes % (Manual) Nucleated RBC % Seg Neutrophils # Seg Neutrophils # Man Lymphocytes # (Manual) Monocytes # (Manual) Eosinophils # (Manual) INR D-Dimer 1722.16 H ABG pH POC ABG pCO2 POC ABG pO2 ABG pO2 ABG HCO3 ABG O2 Saturation ABG Base Excess ABG Hemoglobin ABG Oxyhemoglobin ABG Sodium ABG Potassium ABG Chloride ABG Glucose Oxyhemoglobin Carboxyhemoglobin Sodium Potassium Chloride Carbon Dioxide BUN Creatinine Glucose POC Glucose Hemoglobin A1c Lactic Acid Calcium Phosphorus Magnesium 1.60 L Ferritin 976.5 H Total Bilirubin AST ALT Lactate Dehydrogenase C-Reactive Protein Albumin Triglycerides Arterial Blood Glucose Arterial Blood Ionized Calcium Urine Creatinine Coronavirus (PCR) Crossmatch 02/13/21 02/13/21 02/13/21 12:24 16:57 23:32 WBC RBC Hgb Hct MCV MCH MCHC RDW Plt Count Lymph % (Auto) Lymph # (Auto) Seg Neutrophils % Seg Neuts % (Manual) Lymphocytes % (Manual) Monocytes % (Manual) Nucleated RBC % Seg Neutrophils # Seg Neutrophils # Man Lymphocytes # (Manual) Monocytes # (Manual) Eosinophils # (Manual) INR D-Dimer ABG pH POC ABG pCO2 POC ABG pO2 ABG pO2 ABG HCO3 ABG O2 Saturation ABG Base Excess ABG Hemoglobin ABG Oxyhemoglobin ABG Sodium ABG Potassium ABG Chloride ABG Glucose Oxyhemoglobin Carboxyhemoglobin Sodium Potassium Chloride Carbon Dioxide BUN Creatinine Glucose POC Glucose 141 H 156 H 161 H Hemoglobin A1c Lactic Acid Calcium Phosphorus Magnesium Ferritin Total Bilirubin AST ALT Lactate Dehydrogenase C-Reactive Protein Albumin Triglycerides Arterial Blood Glucose Arterial Blood Ionized Calcium Urine Creatinine Coronavirus (PCR) Crossmatch 02/14/21 02/14/21 02/14/21 04:00 05:41 11:00 WBC RBC 2.14 L Hgb 6.9 L Hct 20.7 L MCV 97 H MCH 33 H MCHC RDW Plt Count Lymph % (Auto) Lymph # (Auto) Seg Neutrophils % Seg Neuts % (Manual) Lymphocytes % (Manual) Monocytes % (Manual) Nucleated RBC % Seg Neutrophils # Seg Neutrophils # Man Lymphocytes # (Manual) Monocytes # (Manual) Eosinophils # (Manual) INR D-Dimer ABG pH POC ABG pCO2 POC ABG pO2 ABG pO2 ABG HCO3 ABG O2 Saturation ABG Base Excess ABG Hemoglobin ABG Oxyhemoglobin ABG Sodium ABG Potassium ABG Chloride ABG Glucose Oxyhemoglobin Carboxyhemoglobin Sodium Potassium Chloride Carbon Dioxide BUN Creatinine Glucose POC Glucose 143 H Hemoglobin A1c Lactic Acid Calcium Phosphorus Magnesium Ferritin Total Bilirubin AST ALT Lactate Dehydrogenase C-Reactive Protein Albumin Triglycerides Arterial Blood Glucose Arterial Blood Ionized Calcium Urine Creatinine Coronavirus (PCR) Crossmatch See Detail 02/14/21 02/14/21 02/14/21 11:51 18:08 23:41 WBC RBC Hgb Hct MCV MCH MCHC RDW Plt Count Lymph % (Auto) Lymph # (Auto) Seg Neutrophils % Seg Neuts % (Manual) Lymphocytes % (Manual) Monocytes % (Manual) Nucleated RBC % Seg Neutrophils # Seg Neutrophils # Man Lymphocytes # (Manual) Monocytes # (Manual) Eosinophils # (Manual) INR D-Dimer ABG pH POC ABG pCO2 POC ABG pO2 ABG pO2 ABG HCO3 ABG O2 Saturation ABG Base Excess ABG Hemoglobin ABG Oxyhemoglobin ABG Sodium ABG Potassium ABG Chloride ABG Glucose Oxyhemoglobin Carboxyhemoglobin Sodium Potassium Chloride Carbon Dioxide BUN Creatinine Glucose POC Glucose 113 H 123 H 120 H Hemoglobin A1c Lactic Acid Calcium Phosphorus Magnesium Ferritin Total Bilirubin AST ALT Lactate Dehydrogenase C-Reactive Protein Albumin Triglycerides Arterial Blood Glucose Arterial Blood Ionized Calcium Urine Creatinine Coronavirus (PCR) Crossmatch 02/14/21 02/15/21 02/15/21 Unknown 05:00 05:00 WBC RBC Hgb Hct MCV MCH MCHC RDW Plt Count Lymph % (Auto) Lymph # (Auto) Seg Neutrophils % Seg Neuts % (Manual) Lymphocytes % (Manual) Monocytes % (Manual) Nucleated RBC % Seg Neutrophils # Seg Neutrophils # Man Lymphocytes # (Manual) Monocytes # (Manual) Eosinophils # (Manual) INR D-Dimer ABG pH POC ABG pCO2 53.4 H POC ABG pO2 61.8 L ABG pO2 ABG HCO3 ABG O2 Saturation ABG Base Excess ABG Hemoglobin 7.7 L ABG Oxyhemoglobin 88.8 L ABG Sodium ABG Potassium ABG Chloride ABG Glucose 143 H Oxyhemoglobin Carboxyhemoglobin 1.6 H Sodium Potassium Chloride 96.9 L Carbon Dioxide 33 H 31 H BUN 40 H 38 H Creatinine 5.2 H 4.8 H Glucose 152 H 132 H POC Glucose Hemoglobin A1c Lactic Acid Calcium 7.9 L Phosphorus Magnesium Ferritin Total Bilirubin AST ALT Lactate Dehydrogenase C-Reactive Protein Albumin Triglycerides Arterial Blood Glucose 143 H Arterial Blood Ionized Calcium Urine Creatinine Coronavirus (PCR) Crossmatch 02/15/21 02/15/21 02/15/21 05:00 05:27 12:05 WBC RBC 2.30 L Hgb 7.1 L Hct 22.1 L MCV 96 H MCH MCHC RDW 15.7 H Plt Count Lymph % (Auto) 11.0 L Lymph # (Auto) 1.1 L Seg Neutrophils % 83.0 H Seg Neuts % (Manual) Lymphocytes % (Manual) Monocytes % (Manual) Nucleated RBC % Seg Neutrophils # 8.6 H Seg Neutrophils # Man Lymphocytes # (Manual) Monocytes # (Manual) Eosinophils # (Manual) INR D-Dimer ABG pH POC ABG pCO2 POC ABG pO2 ABG pO2 ABG HCO3 ABG O2 Saturation ABG Base Excess ABG Hemoglobin ABG Oxyhemoglobin ABG Sodium ABG Potassium ABG Chloride ABG Glucose Oxyhemoglobin Carboxyhemoglobin Sodium Potassium Chloride Carbon Dioxide BUN Creatinine Glucose POC Glucose 133 H 123 H Hemoglobin A1c Lactic Acid Calcium Phosphorus Magnesium Ferritin Total Bilirubin AST ALT Lactate Dehydrogenase C-Reactive Protein Albumin Triglycerides Arterial Blood Glucose Arterial Blood Ionized Calcium Urine Creatinine Coronavirus (PCR) Crossmatch 02/15/21 02/15/21 02/16/21 17:08 23:52 03:44 WBC RBC Hgb Hct MCV MCH MCHC RDW Plt Count Lymph % (Auto) Lymph # (Auto) Seg Neutrophils % Seg Neuts % (Manual) Lymphocytes % (Manual) Monocytes % (Manual) Nucleated RBC % Seg Neutrophils # Seg Neutrophils # Man Lymphocytes # (Manual) Monocytes # (Manual) Eosinophils # (Manual) INR D-Dimer ABG pH 7.307 L POC ABG pCO2 59.5 H POC ABG pO2 63.2 L ABG pO2 ABG HCO3 ABG O2 Saturation ABG Base Excess ABG Hemoglobin 9.3 L ABG Oxyhemoglobin ABG Sodium ABG Potassium ABG Chloride ABG Glucose 148 H Oxyhemoglobin Carboxyhemoglobin Sodium Potassium Chloride Carbon Dioxide BUN Creatinine Glucose POC Glucose 129 H 136 H Hemoglobin A1c Lactic Acid Calcium Phosphorus Magnesium Ferritin Total Bilirubin AST ALT Lactate Dehydrogenase C-Reactive Protein Albumin Triglycerides Arterial Blood Glucose 148 H Arterial Blood Ionized Calcium Urine Creatinine Coronavirus (PCR) Crossmatch 02/16/21 02/16/21 02/16/21 05:26 06:00 12:14 WBC RBC Hgb Hct MCV MCH MCHC RDW Plt Count Lymph % (Auto) Lymph # (Auto) Seg Neutrophils % Seg Neuts % (Manual) Lymphocytes % (Manual) Monocytes % (Manual) Nucleated RBC % Seg Neutrophils # Seg Neutrophils # Man Lymphocytes # (Manual) Monocytes # (Manual) Eosinophils # (Manual) INR D-Dimer ABG pH POC ABG pCO2 POC ABG pO2 ABG pO2 ABG HCO3 ABG O2 Saturation ABG Base Excess ABG Hemoglobin ABG Oxyhemoglobin ABG Sodium ABG Potassium ABG Chloride ABG Glucose Oxyhemoglobin Carboxyhemoglobin Sodium Potassium Chloride Carbon Dioxide BUN 52 H Creatinine 6.0 H Glucose 138 H POC Glucose 135 H 128 H Hemoglobin A1c Lactic Acid Calcium Phosphorus Magnesium Ferritin Total Bilirubin AST ALT Lactate Dehydrogenase C-Reactive Protein Albumin Triglycerides Arterial Blood Glucose Arterial Blood Ionized Calcium Urine Creatinine Coronavirus (PCR) Crossmatch 02/16/21 02/16/21 02/16/21 17:09 17:09 17:09 WBC RBC Hgb Hct MCV MCH MCHC RDW Plt Count Lymph % (Auto) Lymph # (Auto) Seg Neutrophils % Seg Neuts % (Manual) Lymphocytes % (Manual) Monocytes % (Manual) Nucleated RBC % Seg Neutrophils # Seg Neutrophils # Man Lymphocytes # (Manual) Monocytes # (Manual) Eosinophils # (Manual) INR D-Dimer 4256.08 H ABG pH POC ABG pCO2 POC ABG pO2 ABG pO2 ABG HCO3 ABG O2 Saturation ABG Base Excess ABG Hemoglobin ABG Oxyhemoglobin ABG Sodium ABG Potassium ABG Chloride ABG Glucose Oxyhemoglobin Carboxyhemoglobin Sodium Potassium Chloride Carbon Dioxide BUN Creatinine Glucose POC Glucose Hemoglobin A1c Lactic Acid Calcium Phosphorus Magnesium Ferritin 980.6 H Total Bilirubin AST ALT Lactate Dehydrogenase 441 H C-Reactive Protein 20.20 H Albumin Triglycerides Arterial Blood Glucose Arterial Blood Ionized Calcium Urine Creatinine Coronavirus (PCR) Crossmatch 02/16/21 02/16/21 02/16/21 17:25 23:16 Unknown WBC RBC 2.19 L Hgb 7.1 L Hct 21.3 L MCV 98 H MCH 33 H MCHC RDW 16.0 H Plt Count Lymph % (Auto) Lymph # (Auto) Seg Neutrophils % Seg Neuts % (Manual) 85.0 H Lymphocytes % (Manual) 6.0 L Monocytes % (Manual) Nucleated RBC % 4.0 H Seg Neutrophils # Seg Neutrophils # Man Lymphocytes # (Manual) 0.5 L Monocytes # (Manual) Eosinophils # (Manual) INR D-Dimer ABG pH POC ABG pCO2 POC ABG pO2 ABG pO2 ABG HCO3 ABG O2 Saturation ABG Base Excess ABG Hemoglobin ABG Oxyhemoglobin ABG Sodium ABG Potassium ABG Chloride ABG Glucose Oxyhemoglobin Carboxyhemoglobin Sodium Potassium Chloride Carbon Dioxide BUN Creatinine Glucose POC Glucose 146 H 150 H Hemoglobin A1c Lactic Acid Calcium Phosphorus Magnesium Ferritin Total Bilirubin AST ALT Lactate Dehydrogenase C-Reactive Protein Albumin Triglycerides Arterial Blood Glucose Arterial Blood Ionized Calcium Urine Creatinine Coronavirus (PCR) Crossmatch 02/17/21 02/17/21 02/17/21 04:00 04:14 04:14 WBC RBC Hgb Hct MCV MCH MCHC RDW Plt Count Lymph % (Auto) Lymph # (Auto) Seg Neutrophils % Seg Neuts % (Manual) Lymphocytes % (Manual) Monocytes % (Manual) Nucleated RBC % Seg Neutrophils # Seg Neutrophils # Man Lymphocytes # (Manual) Monocytes # (Manual) Eosinophils # (Manual) INR D-Dimer 3183.35 H ABG pH 7.293 L POC ABG pCO2 59.5 H POC ABG pO2 68.1 L ABG pO2 ABG HCO3 ABG O2 Saturation ABG Base Excess ABG Hemoglobin 7.7 L ABG Oxyhemoglobin ABG Sodium 133.4 L ABG Potassium ABG Chloride ABG Glucose 143 H Oxyhemoglobin Carboxyhemoglobin Sodium 136 L Potassium Chloride 97.3 L Carbon Dioxide BUN 49 H Creatinine 5.3 H Glucose 139 H POC Glucose Hemoglobin A1c Lactic Acid Calcium Phosphorus Magnesium Ferritin Total Bilirubin AST ALT Lactate Dehydrogenase C-Reactive Protein Albumin Triglycerides Arterial Blood Glucose 143 H Arterial Blood Ionized Calcium Urine Creatinine Coronavirus (PCR) Crossmatch 02/17/21 02/17/21 02/17/21 04:14 04:14 04:14 WBC RBC 2.14 L Hgb 6.9 L Hct 21.0 L MCV 98 H MCH MCHC RDW 15.8 H Plt Count Lymph % (Auto) Lymph # (Auto) Seg Neutrophils % Seg Neuts % (Manual) Lymphocytes % (Manual) Monocytes % (Manual) Nucleated RBC % Seg Neutrophils # Seg Neutrophils # Man Lymphocytes # (Manual) Monocytes # (Manual) Eosinophils # (Manual) INR D-Dimer ABG pH POC ABG pCO2 POC ABG pO2 ABG pO2 ABG HCO3 ABG O2 Saturation ABG Base Excess ABG Hemoglobin ABG Oxyhemoglobin ABG Sodium ABG Potassium ABG Chloride ABG Glucose Oxyhemoglobin Carboxyhemoglobin Sodium Potassium Chloride Carbon Dioxide BUN Creatinine Glucose POC Glucose Hemoglobin A1c Lactic Acid Calcium Phosphorus Magnesium Ferritin 894.0 H Total Bilirubin AST ALT Lactate Dehydrogenase 399 H C-Reactive Protein 22.10 H Albumin Triglycerides Arterial Blood Glucose Arterial Blood Ionized Calcium Urine Creatinine Coronavirus (PCR) Crossmatch 02/17/21 02/17/21 02/17/21 06:06 07:45 12:25 WBC RBC Hgb 7.6 L Hct 22.8 L MCV MCH MCHC RDW Plt Count Lymph % (Auto) Lymph # (Auto) Seg Neutrophils % Seg Neuts % (Manual) Lymphocytes % (Manual) Monocytes % (Manual) Nucleated RBC % Seg Neutrophils # Seg Neutrophils # Man Lymphocytes # (Manual) Monocytes # (Manual) Eosinophils # (Manual) INR D-Dimer ABG pH POC ABG pCO2 POC ABG pO2 ABG pO2 ABG HCO3 ABG O2 Saturation ABG Base Excess ABG Hemoglobin ABG Oxyhemoglobin ABG Sodium ABG Potassium ABG Chloride ABG Glucose Oxyhemoglobin Carboxyhemoglobin Sodium Potassium Chloride Carbon Dioxide BUN Creatinine Glucose POC Glucose 134 H Hemoglobin A1c Lactic Acid Calcium Phosphorus Magnesium Ferritin Total Bilirubin AST ALT Lactate Dehydrogenase C-Reactive Protein Albumin Triglycerides Arterial Blood Glucose Arterial Blood Ionized Calcium Urine Creatinine Coronavirus (PCR) Crossmatch See Detail 02/17/21 02/17/21 02/17/21 12:35 17:56 23:34 WBC RBC Hgb Hct MCV MCH MCHC RDW Plt Count Lymph % (Auto) Lymph # (Auto) Seg Neutrophils % Seg Neuts % (Manual) Lymphocytes % (Manual) Monocytes % (Manual) Nucleated RBC % Seg Neutrophils # Seg Neutrophils # Man Lymphocytes # (Manual) Monocytes # (Manual) Eosinophils # (Manual) INR D-Dimer ABG pH POC ABG pCO2 POC ABG pO2 ABG pO2 ABG HCO3 ABG O2 Saturation ABG Base Excess ABG Hemoglobin ABG Oxyhemoglobin ABG Sodium ABG Potassium ABG Chloride ABG Glucose Oxyhemoglobin Carboxyhemoglobin Sodium Potassium Chloride Carbon Dioxide BUN Creatinine Glucose POC Glucose 114 H 128 H 120 H Hemoglobin A1c Lactic Acid Calcium Phosphorus Magnesium Ferritin Total Bilirubin AST ALT Lactate Dehydrogenase C-Reactive Protein Albumin Triglycerides Arterial Blood Glucose Arterial Blood Ionized Calcium Urine Creatinine Coronavirus (PCR) Crossmatch 02/18/21 02/18/21 02/18/21 04:03 04:55 05:02 WBC RBC 2.40 L Hgb 7.5 L Hct 23.1 L MCV 96 H MCH MCHC RDW 16.8 H Plt Count Lymph % (Auto) Lymph # (Auto) Seg Neutrophils % Seg Neuts % (Manual) Lymphocytes % (Manual) Monocytes % (Manual) Nucleated RBC % Seg Neutrophils # Seg Neutrophils # Man Lymphocytes # (Manual) Monocytes # (Manual) Eosinophils # (Manual) INR D-Dimer ABG pH 7.219 L POC ABG pCO2 58.7 H POC ABG pO2 64.2 L ABG pO2 ABG HCO3 ABG O2 Saturation ABG Base Excess ABG Hemoglobin ABG Oxyhemoglobin ABG Sodium 130.5 L ABG Potassium ABG Chloride ABG Glucose 147 H Oxyhemoglobin Carboxyhemoglobin Sodium 134 L Potassium Chloride 97.9 L Carbon Dioxide BUN 64 H Creatinine 6.5 H Glucose 135 H POC Glucose Hemoglobin A1c Lactic Acid Calcium 8.0 L Phosphorus Magnesium Ferritin Total Bilirubin AST ALT Lactate Dehydrogenase C-Reactive Protein Albumin Triglycerides Arterial Blood Glucose 147 H Arterial Blood Ionized Calcium Urine Creatinine Coronavirus (PCR) Crossmatch 02/18/21 02/18/21 02/18/21 05:27 10:00 11:51 WBC RBC Hgb Hct MCV MCH MCHC RDW Plt Count Lymph % (Auto) Lymph # (Auto) Seg Neutrophils % Seg Neuts % (Manual) Lymphocytes % (Manual) Monocytes % (Manual) Nucleated RBC % Seg Neutrophils # Seg Neutrophils # Man Lymphocytes # (Manual) Monocytes # (Manual) Eosinophils # (Manual) INR D-Dimer ABG pH POC ABG pCO2 POC ABG pO2 ABG pO2 ABG HCO3 ABG O2 Saturation ABG Base Excess ABG Hemoglobin ABG Oxyhemoglobin ABG Sodium ABG Potassium ABG Chloride ABG Glucose Oxyhemoglobin Carboxyhemoglobin Sodium Potassium Chloride Carbon Dioxide BUN Creatinine Glucose POC Glucose 130 H 123 H Hemoglobin A1c Lactic Acid Calcium Phosphorus Magnesium Ferritin Total Bilirubin AST ALT Lactate Dehydrogenase C-Reactive Protein Albumin Triglycerides Arterial Blood Glucose Arterial Blood Ionized Calcium Urine Creatinine Coronavirus (PCR) Positive A Crossmatch 02/18/21 02/18/21 02/19/21 18:10 23:35 05:00 WBC RBC Hgb Hct MCV MCH MCHC RDW Plt Count Lymph % (Auto) Lymph # (Auto) Seg Neutrophils % Seg Neuts % (Manual) Lymphocytes % (Manual) Monocytes % (Manual) Nucleated RBC % Seg Neutrophils # Seg Neutrophils # Man Lymphocytes # (Manual) Monocytes # (Manual) Eosinophils # (Manual) INR D-Dimer ABG pH 7.232 L POC ABG pCO2 64.3 H POC ABG pO2 ABG pO2 ABG HCO3 ABG O2 Saturation ABG Base Excess ABG Hemoglobin 8.1 L ABG Oxyhemoglobin ABG Sodium 133.5 L ABG Potassium ABG Chloride ABG Glucose 148 H Oxyhemoglobin Carboxyhemoglobin 1.6 H Sodium Potassium Chloride Carbon Dioxide BUN Creatinine Glucose POC Glucose 123 H 137 H Hemoglobin A1c Lactic Acid Calcium Phosphorus Magnesium Ferritin Total Bilirubin AST ALT Lactate Dehydrogenase C-Reactive Protein Albumin Triglycerides Arterial Blood Glucose 148 H Arterial Blood Ionized Calcium Urine Creatinine Coronavirus (PCR) Crossmatch 02/19/21 02/19/21 02/19/21 05:12 05:45 05:45 WBC RBC Hgb Hct MCV MCH MCHC RDW Plt Count Lymph % (Auto) Lymph # (Auto) Seg Neutrophils % Seg Neuts % (Manual) Lymphocytes % (Manual) Monocytes % (Manual) Nucleated RBC % Seg Neutrophils # Seg Neutrophils # Man Lymphocytes # (Manual) Monocytes # (Manual) Eosinophils # (Manual) INR D-Dimer 4840.82 H ABG pH POC ABG pCO2 POC ABG pO2 ABG pO2 ABG HCO3 ABG O2 Saturation ABG Base Excess ABG Hemoglobin ABG Oxyhemoglobin ABG Sodium ABG Potassium ABG Chloride ABG Glucose Oxyhemoglobin Carboxyhemoglobin Sodium 135 L Potassium Chloride 97.8 L Carbon Dioxide BUN 58 H Creatinine 5.6 H Glucose 140 H POC Glucose 134 H Hemoglobin A1c Lactic Acid Calcium Phosphorus Magnesium Ferritin Total Bilirubin AST ALT Lactate Dehydrogenase 345 H C-Reactive Protein 15.20 H Albumin Triglycerides 195 H Arterial Blood Glucose Arterial Blood Ionized Calcium Urine Creatinine Coronavirus (PCR) Crossmatch 02/19/21 02/19/21 02/19/21 05:45 12:00 17:48 WBC RBC Hgb Hct MCV MCH MCHC RDW Plt Count Lymph % (Auto) Lymph # (Auto) Seg Neutrophils % Seg Neuts % (Manual) Lymphocytes % (Manual) Monocytes % (Manual) Nucleated RBC % Seg Neutrophils # Seg Neutrophils # Man Lymphocytes # (Manual) Monocytes # (Manual) Eosinophils # (Manual) INR D-Dimer ABG pH POC ABG pCO2 POC ABG pO2 ABG pO2 ABG HCO3 ABG O2 Saturation ABG Base Excess ABG Hemoglobin ABG Oxyhemoglobin ABG Sodium ABG Potassium ABG Chloride ABG Glucose Oxyhemoglobin Carboxyhemoglobin Sodium Potassium Chloride Carbon Dioxide BUN Creatinine Glucose POC Glucose 122 H 119 H Hemoglobin A1c Lactic Acid Calcium Phosphorus Magnesium Ferritin 951.8 H Total Bilirubin AST ALT Lactate Dehydrogenase C-Reactive Protein Albumin Triglycerides Arterial Blood Glucose Arterial Blood Ionized Calcium Urine Creatinine Coronavirus (PCR) Crossmatch 02/20/21 02/20/21 02/20/21 03:20 04:00 11:48 WBC RBC Hgb Hct MCV MCH MCHC RDW Plt Count Lymph % (Auto) Lymph # (Auto) Seg Neutrophils % Seg Neuts % (Manual) Lymphocytes % (Manual) Monocytes % (Manual) Nucleated RBC % Seg Neutrophils # Seg Neutrophils # Man Lymphocytes # (Manual) Monocytes # (Manual) Eosinophils # (Manual) INR D-Dimer ABG pH 7.276 L POC ABG pCO2 57.3 H POC ABG pO2 71.0 L ABG pO2 ABG HCO3 ABG O2 Saturation ABG Base Excess ABG Hemoglobin 8.2 L ABG Oxyhemoglobin 91.9 L ABG Sodium 128.1 L ABG Potassium 4.8 H ABG Chloride ABG Glucose Oxyhemoglobin Carboxyhemoglobin 1.6 H Sodium 136 L Potassium Chloride Carbon Dioxide BUN 69 H Creatinine 6.4 H Glucose POC Glucose 131 H Hemoglobin A1c Lactic Acid Calcium 8.1 L Phosphorus Magnesium Ferritin Total Bilirubin AST ALT Lactate Dehydrogenase C-Reactive Protein Albumin Triglycerides Arterial Blood Glucose Arterial Blood Ionized Calcium 4.5 L Urine Creatinine Coronavirus (PCR) Crossmatch 02/20/21 02/20/21 02/21/21 18:05 23:28 02:53 WBC RBC Hgb Hct MCV MCH MCHC RDW Plt Count Lymph % (Auto) Lymph # (Auto) Seg Neutrophils % Seg Neuts % (Manual) Lymphocytes % (Manual) Monocytes % (Manual) Nucleated RBC % Seg Neutrophils # Seg Neutrophils # Man Lymphocytes # (Manual) Monocytes # (Manual) Eosinophils # (Manual) INR D-Dimer ABG pH 7.288 L POC ABG pCO2 52.7 H POC ABG pO2 81.5 L ABG pO2 ABG HCO3 ABG O2 Saturation ABG Base Excess ABG Hemoglobin 8.5 L ABG Oxyhemoglobin 93.6 L ABG Sodium 132.5 L ABG Potassium 4.6 H ABG Chloride ABG Glucose 106 H Oxyhemoglobin Carboxyhemoglobin 1.6 H Sodium Potassium Chloride Carbon Dioxide BUN Creatinine Glucose POC Glucose 114 H 118 H Hemoglobin A1c Lactic Acid Calcium Phosphorus Magnesium Ferritin Total Bilirubin AST ALT Lactate Dehydrogenase C-Reactive Protein Albumin Triglycerides Arterial Blood Glucose 106 H Arterial Blood Ionized Calcium 4.4 L Urine Creatinine Coronavirus (PCR) Crossmatch 02/21/21 02/21/21 02/21/21 05:29 11:42 16:35 WBC RBC Hgb Hct MCV MCH MCHC RDW Plt Count Lymph % (Auto) Lymph # (Auto) Seg Neutrophils % Seg Neuts % (Manual) Lymphocytes % (Manual) Monocytes % (Manual) Nucleated RBC % Seg Neutrophils # Seg Neutrophils # Man Lymphocytes # (Manual) Monocytes # (Manual) Eosinophils # (Manual) INR D-Dimer ABG pH POC ABG pCO2 POC ABG pO2 ABG pO2 ABG HCO3 ABG O2 Saturation ABG Base Excess ABG Hemoglobin ABG Oxyhemoglobin ABG Sodium ABG Potassium ABG Chloride ABG Glucose Oxyhemoglobin Carboxyhemoglobin Sodium Potassium 5.6 H Chloride 97.6 L Carbon Dioxide BUN 68 H Creatinine 5.7 H Glucose 160 H POC Glucose 111 H 131 H Hemoglobin A1c Lactic Acid Calcium 8.0 L Phosphorus 7.90 H Magnesium 2.60 H Ferritin Total Bilirubin AST ALT Lactate Dehydrogenase C-Reactive Protein Albumin Triglycerides Arterial Blood Glucose Arterial Blood Ionized Calcium Urine Creatinine Coronavirus (PCR) Crossmatch 02/21/21 02/22/21 02/22/21 17:17 00:04 04:22 WBC RBC Hgb Hct MCV MCH MCHC RDW Plt Count Lymph % (Auto) Lymph # (Auto) Seg Neutrophils % Seg Neuts % (Manual) Lymphocytes % (Manual) Monocytes % (Manual) Nucleated RBC % Seg Neutrophils # Seg Neutrophils # Man Lymphocytes # (Manual) Monocytes # (Manual) Eosinophils # (Manual) INR D-Dimer ABG pH 7.250 L POC ABG pCO2 60.1 H POC ABG pO2 57.6 L ABG pO2 ABG HCO3 ABG O2 Saturation ABG Base Excess ABG Hemoglobin 8.8 L ABG Oxyhemoglobin 87.0 L ABG Sodium 133.4 L ABG Potassium 5.1 H ABG Chloride ABG Glucose 124 H Oxyhemoglobin Carboxyhemoglobin Sodium Potassium Chloride Carbon Dioxide BUN Creatinine Glucose POC Glucose 135 H 121 H Hemoglobin A1c Lactic Acid Calcium Phosphorus Magnesium Ferritin Total Bilirubin AST ALT Lactate Dehydrogenase C-Reactive Protein Albumin Triglycerides Arterial Blood Glucose 124 H Arterial Blood Ionized Calcium Urine Creatinine Coronavirus (PCR) Crossmatch 02/22/21 02/22/21 02/22/21 05:33 09:41 09:41 WBC 13.2 H RBC 2.35 L Hgb 7.5 L Hct 22.7 L MCV 96 H MCH MCHC RDW 17.0 H Plt Count Lymph % (Auto) Lymph # (Auto) Seg Neutrophils % Seg Neuts % (Manual) 93.0 H Lymphocytes % (Manual) 4.0 L Monocytes % (Manual) Nucleated RBC % 1.0 H Seg Neutrophils # Seg Neutrophils # Man 12.3 H Lymphocytes # (Manual) 0.5 L Monocytes # (Manual) Eosinophils # (Manual) INR D-Dimer ABG pH POC ABG pCO2 POC ABG pO2 ABG pO2 ABG HCO3 ABG O2 Saturation ABG Base Excess ABG Hemoglobin ABG Oxyhemoglobin ABG Sodium ABG Potassium ABG Chloride ABG Glucose Oxyhemoglobin Carboxyhemoglobin Sodium Potassium 5.4 H Chloride Carbon Dioxide BUN 61 H Creatinine 5.5 H Glucose 117 H POC Glucose 114 H Hemoglobin A1c Lactic Acid Calcium 8.3 L Phosphorus Magnesium Ferritin Total Bilirubin AST ALT Lactate Dehydrogenase C-Reactive Protein Albumin Triglycerides Arterial Blood Glucose Arterial Blood Ionized Calcium Urine Creatinine Coronavirus (PCR) Crossmatch 02/22/21 02/22/21 02/23/21 12:08 17:06 04:00 WBC RBC Hgb Hct MCV MCH MCHC RDW Plt Count Lymph % (Auto) Lymph # (Auto) Seg Neutrophils % Seg Neuts % (Manual) Lymphocytes % (Manual) Monocytes % (Manual) Nucleated RBC % Seg Neutrophils # Seg Neutrophils # Man Lymphocytes # (Manual) Monocytes # (Manual) Eosinophils # (Manual) INR D-Dimer ABG pH 7.246 L POC ABG pCO2 POC ABG pO2 ABG pO2 119.4 H ABG HCO3 26.6 H ABG O2 Saturation ABG Base Excess ABG Hemoglobin 8.8 L ABG Oxyhemoglobin ABG Sodium ABG Potassium ABG Chloride ABG Glucose Oxyhemoglobin Carboxyhemoglobin Sodium Potassium Chloride Carbon Dioxide BUN Creatinine Glucose POC Glucose 133 H 114 H Hemoglobin A1c Lactic Acid Calcium Phosphorus Magnesium Ferritin Total Bilirubin AST ALT Lactate Dehydrogenase C-Reactive Protein Albumin Triglycerides Arterial Blood Glucose Arterial Blood Ionized Calcium Urine Creatinine Coronavirus (PCR) Crossmatch 02/23/21 02/23/21 02/24/21 06:20 11:42 03:43 WBC RBC Hgb Hct MCV MCH MCHC RDW Plt Count Lymph % (Auto) Lymph # (Auto) Seg Neutrophils % Seg Neuts % (Manual) Lymphocytes % (Manual) Monocytes % (Manual) Nucleated RBC % Seg Neutrophils # Seg Neutrophils # Man Lymphocytes # (Manual) Monocytes # (Manual) Eosinophils # (Manual) INR D-Dimer ABG pH 7.287 L POC ABG pCO2 54.7 H POC ABG pO2 ABG pO2 ABG HCO3 ABG O2 Saturation ABG Base Excess ABG Hemoglobin 8.5 L ABG Oxyhemoglobin ABG Sodium 135.6 L ABG Potassium ABG Chloride ABG Glucose 117 H Oxyhemoglobin Carboxyhemoglobin Sodium Potassium Chloride 97.6 L Carbon Dioxide BUN 79 H Creatinine 6.2 H Glucose POC Glucose 108 H Hemoglobin A1c Lactic Acid Calcium 8.3 L Phosphorus Magnesium Ferritin Total Bilirubin AST ALT Lactate Dehydrogenase C-Reactive Protein Albumin Triglycerides Arterial Blood Glucose 117 H Arterial Blood Ionized Calcium Urine Creatinine Coronavirus (PCR) Crossmatch 02/24/21 02/24/21 02/24/21 04:25 04:25 04:25 WBC 11.5 H RBC 2.47 L Hgb 7.7 L Hct 23.5 L MCV 95 H MCH MCHC RDW 16.7 H Plt Count Lymph % (Auto) Lymph # (Auto) Seg Neutrophils % Seg Neuts % (Manual) 82.0 H Lymphocytes % (Manual) 3.0 L Monocytes % (Manual) 11.0 H Nucleated RBC % Seg Neutrophils # Seg Neutrophils # Man 9.4 H Lymphocytes # (Manual) 0.3 L Monocytes # (Manual) 1.3 H Eosinophils # (Manual) INR D-Dimer 4695.21 H ABG pH POC ABG pCO2 POC ABG pO2 ABG pO2 ABG HCO3 ABG O2 Saturation ABG Base Excess ABG Hemoglobin ABG Oxyhemoglobin ABG Sodium ABG Potassium ABG Chloride ABG Glucose Oxyhemoglobin Carboxyhemoglobin Sodium Potassium Chloride Carbon Dioxide BUN 68 H Creatinine 4.9 H Glucose 113 H POC Glucose Hemoglobin A1c Lactic Acid Calcium Phosphorus Magnesium Ferritin Total Bilirubin AST ALT Lactate Dehydrogenase C-Reactive Protein 7.20 H Albumin Triglycerides Arterial Blood Glucose Arterial Blood Ionized Calcium Urine Creatinine Coronavirus (PCR) Crossmatch 02/24/21 02/24/21 02/24/21 04:25 05:01 11:12 WBC RBC Hgb Hct MCV MCH MCHC RDW Plt Count Lymph % (Auto) Lymph # (Auto) Seg Neutrophils % Seg Neuts % (Manual) Lymphocytes % (Manual) Monocytes % (Manual) Nucleated RBC % Seg Neutrophils # Seg Neutrophils # Man Lymphocytes # (Manual) Monocytes # (Manual) Eosinophils # (Manual) INR D-Dimer ABG pH POC ABG pCO2 POC ABG pO2 ABG pO2 ABG HCO3 ABG O2 Saturation ABG Base Excess ABG Hemoglobin ABG Oxyhemoglobin ABG Sodium ABG Potassium ABG Chloride ABG Glucose Oxyhemoglobin Carboxyhemoglobin Sodium Potassium Chloride Carbon Dioxide BUN Creatinine Glucose POC Glucose 116 H 112 H Hemoglobin A1c Lactic Acid Calcium Phosphorus Magnesium Ferritin 1116.0 H Total Bilirubin AST ALT Lactate Dehydrogenase C-Reactive Protein Albumin Triglycerides Arterial Blood Glucose Arterial Blood Ionized Calcium Urine Creatinine Coronavirus (PCR) Crossmatch 02/24/21 02/25/21 02/25/21 18:11 03:42 05:58 WBC RBC Hgb Hct MCV MCH MCHC RDW Plt Count Lymph % (Auto) Lymph # (Auto) Seg Neutrophils % Seg Neuts % (Manual) Lymphocytes % (Manual) Monocytes % (Manual) Nucleated RBC % Seg Neutrophils # Seg Neutrophils # Man Lymphocytes # (Manual) Monocytes # (Manual) Eosinophils # (Manual) INR D-Dimer ABG pH 7.287 L POC ABG pCO2 58.2 H POC ABG pO2 ABG pO2 ABG HCO3 ABG O2 Saturation ABG Base Excess ABG Hemoglobin 8.4 L ABG Oxyhemoglobin 93.7 L ABG Sodium ABG Potassium ABG Chloride ABG Glucose 104 H Oxyhemoglobin Carboxyhemoglobin Sodium Potassium Chloride Carbon Dioxide BUN Creatinine Glucose POC Glucose 109 H 109 H Hemoglobin A1c Lactic Acid Calcium Phosphorus Magnesium Ferritin Total Bilirubin AST ALT Lactate Dehydrogenase C-Reactive Protein Albumin Triglycerides Arterial Blood Glucose 104 H Arterial Blood Ionized Calcium 4.5 L Urine Creatinine Coronavirus (PCR) Crossmatch 02/25/21 02/25/21 02/25/21 09:03 13:47 16:50 WBC RBC Hgb Hct MCV MCH MCHC RDW Plt Count Lymph % (Auto) Lymph # (Auto) Seg Neutrophils % Seg Neuts % (Manual) Lymphocytes % (Manual) Monocytes % (Manual) Nucleated RBC % Seg Neutrophils # Seg Neutrophils # Man Lymphocytes # (Manual) Monocytes # (Manual) Eosinophils # (Manual) INR D-Dimer 6536.84 H ABG pH POC ABG pCO2 POC ABG pO2 ABG pO2 ABG HCO3 ABG O2 Saturation ABG Base Excess ABG Hemoglobin ABG Oxyhemoglobin ABG Sodium ABG Potassium ABG Chloride ABG Glucose Oxyhemoglobin Carboxyhemoglobin Sodium Potassium Chloride Carbon Dioxide BUN Creatinine Glucose POC Glucose 144 H 114 H Hemoglobin A1c Lactic Acid Calcium Phosphorus Magnesium Ferritin Total Bilirubin AST ALT Lactate Dehydrogenase C-Reactive Protein Albumin Triglycerides Arterial Blood Glucose Arterial Blood Ionized Calcium Urine Creatinine Coronavirus (PCR) Crossmatch 02/25/21 02/26/21 02/26/21 23:53 03:35 05:36 WBC RBC Hgb Hct MCV MCH MCHC RDW Plt Count Lymph % (Auto) Lymph # (Auto) Seg Neutrophils % Seg Neuts % (Manual) Lymphocytes % (Manual) Monocytes % (Manual) Nucleated RBC % Seg Neutrophils # Seg Neutrophils # Man Lymphocytes # (Manual) Monocytes # (Manual) Eosinophils # (Manual) INR D-Dimer ABG pH 7.179 L POC ABG pCO2 76.6 H POC ABG pO2 ABG pO2 ABG HCO3 ABG O2 Saturation ABG Base Excess ABG Hemoglobin 9.0 L ABG Oxyhemoglobin ABG Sodium 134.8 L ABG Potassium ABG Chloride ABG Glucose 118 H Oxyhemoglobin Carboxyhemoglobin Sodium Potassium Chloride Carbon Dioxide BUN Creatinine Glucose POC Glucose 110 H 113 H Hemoglobin A1c Lactic Acid Calcium Phosphorus Magnesium Ferritin Total Bilirubin AST ALT Lactate Dehydrogenase C-Reactive Protein Albumin Triglycerides Arterial Blood Glucose 118 H Arterial Blood Ionized Calcium Urine Creatinine Coronavirus (PCR) Crossmatch 02/26/21 02/26/21 02/26/21 05:48 05:48 05:48 WBC 11.4 H RBC 2.40 L Hgb 7.5 L Hct 23.2 L MCV 97 H MCH MCHC RDW 17.4 H Plt Count Lymph % (Auto) Lymph # (Auto) Seg Neutrophils % Seg Neuts % (Manual) Lymphocytes % (Manual) Monocytes % (Manual) Nucleated RBC % Seg Neutrophils # Seg Neutrophils # Man Lymphocytes # (Manual) Monocytes # (Manual) Eosinophils # (Manual) INR D-Dimer ABG pH POC ABG pCO2 POC ABG pO2 ABG pO2 ABG HCO3 ABG O2 Saturation ABG Base Excess ABG Hemoglobin ABG Oxyhemoglobin ABG Sodium ABG Potassium ABG Chloride ABG Glucose Oxyhemoglobin Carboxyhemoglobin Sodium Potassium Chloride Carbon Dioxide BUN 72 H Creatinine 4.5 H Glucose 112 H POC Glucose Hemoglobin A1c Lactic Acid Calcium 7.7 L Phosphorus Magnesium Ferritin 867.8 H Total Bilirubin AST ALT Lactate Dehydrogenase C-Reactive Protein 5.90 H Albumin Triglycerides Arterial Blood Glucose Arterial Blood Ionized Calcium Urine Creatinine Coronavirus (PCR) Crossmatch 02/26/21 02/26/21 02/26/21 08:00 11:29 18:13 WBC RBC Hgb Hct MCV MCH MCHC RDW Plt Count Lymph % (Auto) Lymph # (Auto) Seg Neutrophils % Seg Neuts % (Manual) Lymphocytes % (Manual) Monocytes % (Manual) Nucleated RBC % Seg Neutrophils # Seg Neutrophils # Man Lymphocytes # (Manual) Monocytes # (Manual) Eosinophils # (Manual) INR D-Dimer ABG pH 7.228 L POC ABG pCO2 70.2 H POC ABG pO2 79.7 L ABG pO2 ABG HCO3 ABG O2 Saturation ABG Base Excess ABG Hemoglobin 7.6 L ABG Oxyhemoglobin 93.2 L ABG Sodium 135.7 L ABG Potassium ABG Chloride ABG Glucose 119 H Oxyhemoglobin Carboxyhemoglobin Sodium Potassium Chloride Carbon Dioxide BUN Creatinine Glucose POC Glucose 110 H 115 H Hemoglobin A1c Lactic Acid Calcium Phosphorus Magnesium Ferritin Total Bilirubin AST ALT Lactate Dehydrogenase C-Reactive Protein Albumin Triglycerides Arterial Blood Glucose 119 H Arterial Blood Ionized Calcium Urine Creatinine Coronavirus (PCR) Crossmatch 02/26/21 02/27/21 02/27/21 23:18 04:00 05:04 WBC RBC Hgb Hct MCV MCH MCHC RDW Plt Count Lymph % (Auto) Lymph # (Auto) Seg Neutrophils % Seg Neuts % (Manual) Lymphocytes % (Manual) Monocytes % (Manual) Nucleated RBC % Seg Neutrophils # Seg Neutrophils # Man Lymphocytes # (Manual) Monocytes # (Manual) Eosinophils # (Manual) INR D-Dimer ABG pH 7.316 L POC ABG pCO2 49.0 H POC ABG pO2 111.2 H ABG pO2 ABG HCO3 ABG O2 Saturation ABG Base Excess ABG Hemoglobin 7.7 L ABG Oxyhemoglobin ABG Sodium 135.0 L ABG Potassium ABG Chloride ABG Glucose 113 H Oxyhemoglobin Carboxyhemoglobin Sodium Potassium Chloride Carbon Dioxide BUN Creatinine Glucose POC Glucose 114 H 112 H Hemoglobin A1c Lactic Acid Calcium Phosphorus Magnesium Ferritin Total Bilirubin AST ALT Lactate Dehydrogenase C-Reactive Protein Albumin Triglycerides Arterial Blood Glucose 113 H Arterial Blood Ionized Calcium 4.4 L Urine Creatinine Coronavirus (PCR) Crossmatch 02/27/21 02/27/21 02/27/21 12:13 18:30 23:40 WBC RBC Hgb Hct MCV MCH MCHC RDW Plt Count Lymph % (Auto) Lymph # (Auto) Seg Neutrophils % Seg Neuts % (Manual) Lymphocytes % (Manual) Monocytes % (Manual) Nucleated RBC % Seg Neutrophils # Seg Neutrophils # Man Lymphocytes # (Manual) Monocytes # (Manual) Eosinophils # (Manual) INR D-Dimer ABG pH POC ABG pCO2 POC ABG pO2 ABG pO2 ABG HCO3 ABG O2 Saturation ABG Base Excess ABG Hemoglobin ABG Oxyhemoglobin ABG Sodium ABG Potassium ABG Chloride ABG Glucose Oxyhemoglobin Carboxyhemoglobin Sodium Potassium Chloride Carbon Dioxide BUN Creatinine Glucose POC Glucose 127 H 129 H 115 H Hemoglobin A1c Lactic Acid Calcium Phosphorus Magnesium Ferritin Total Bilirubin AST ALT Lactate Dehydrogenase C-Reactive Protein Albumin Triglycerides Arterial Blood Glucose Arterial Blood Ionized Calcium Urine Creatinine Coronavirus (PCR) Crossmatch 02/28/21 02/28/21 02/28/21 04:07 05:29 10:22 WBC RBC Hgb Hct MCV MCH MCHC RDW Plt Count Lymph % (Auto) Lymph # (Auto) Seg Neutrophils % Seg Neuts % (Manual) Lymphocytes % (Manual) Monocytes % (Manual) Nucleated RBC % Seg Neutrophils # Seg Neutrophils # Man Lymphocytes # (Manual) Monocytes # (Manual) Eosinophils # (Manual) INR D-Dimer ABG pH 7.260 L POC ABG pCO2 67.6 H POC ABG pO2 ABG pO2 ABG HCO3 ABG O2 Saturation ABG Base Excess ABG Hemoglobin 7.9 L ABG Oxyhemoglobin ABG Sodium ABG Potassium ABG Chloride ABG Glucose 129 H Oxyhemoglobin Carboxyhemoglobin Sodium Potassium Chloride Carbon Dioxide BUN 68 H Creatinine 3.5 H Glucose 117 H POC Glucose 117 H Hemoglobin A1c Lactic Acid Calcium 7.9 L Phosphorus Magnesium Ferritin Total Bilirubin AST ALT Lactate Dehydrogenase C-Reactive Protein Albumin Triglycerides Arterial Blood Glucose 129 H Arterial Blood Ionized Calcium Urine Creatinine Coronavirus (PCR) Crossmatch 02/28/21 02/28/21 03/01/21 11:51 17:26 00:31 WBC RBC Hgb Hct MCV MCH MCHC RDW Plt Count Lymph % (Auto) Lymph # (Auto) Seg Neutrophils % Seg Neuts % (Manual) Lymphocytes % (Manual) Monocytes % (Manual) Nucleated RBC % Seg Neutrophils # Seg Neutrophils # Man Lymphocytes # (Manual) Monocytes # (Manual) Eosinophils # (Manual) INR D-Dimer ABG pH POC ABG pCO2 POC ABG pO2 ABG pO2 ABG HCO3 ABG O2 Saturation ABG Base Excess ABG Hemoglobin ABG Oxyhemoglobin ABG Sodium ABG Potassium ABG Chloride ABG Glucose Oxyhemoglobin Carboxyhemoglobin Sodium Potassium Chloride Carbon Dioxide BUN Creatinine Glucose POC Glucose 123 H 121 H 112 H Hemoglobin A1c Lactic Acid Calcium Phosphorus Magnesium Ferritin Total Bilirubin AST ALT Lactate Dehydrogenase C-Reactive Protein Albumin Triglycerides Arterial Blood Glucose Arterial Blood Ionized Calcium Urine Creatinine Coronavirus (PCR) Crossmatch 03/01/21 03/01/21 03/01/21 03:29 06:00 06:17 WBC RBC Hgb Hct MCV MCH MCHC RDW Plt Count Lymph % (Auto) Lymph # (Auto) Seg Neutrophils % Seg Neuts % (Manual) Lymphocytes % (Manual) Monocytes % (Manual) Nucleated RBC % Seg Neutrophils # Seg Neutrophils # Man Lymphocytes # (Manual) Monocytes # (Manual) Eosinophils # (Manual) INR D-Dimer ABG pH POC ABG pCO2 52.3 H POC ABG pO2 115.1 H ABG pO2 ABG HCO3 ABG O2 Saturation ABG Base Excess ABG Hemoglobin 7.5 L ABG Oxyhemoglobin ABG Sodium 135.6 L ABG Potassium ABG Chloride ABG Glucose 117 H Oxyhemoglobin Carboxyhemoglobin 1.6 H Sodium Potassium Chloride Carbon Dioxide BUN 78 H Creatinine 3.6 H Glucose 110 H POC Glucose 121 H Hemoglobin A1c Lactic Acid Calcium 8.0 L Phosphorus Magnesium Ferritin Total Bilirubin AST ALT Lactate Dehydrogenase C-Reactive Protein Albumin Triglycerides Arterial Blood Glucose 117 H Arterial Blood Ionized Calcium Urine Creatinine Coronavirus (PCR) Crossmatch 03/01/21 03/02/21 03/02/21 23:22 04:43 05:46 WBC RBC Hgb Hct MCV MCH MCHC RDW Plt Count Lymph % (Auto) Lymph # (Auto) Seg Neutrophils % Seg Neuts % (Manual) Lymphocytes % (Manual) Monocytes % (Manual) Nucleated RBC % Seg Neutrophils # Seg Neutrophils # Man Lymphocytes # (Manual) Monocytes # (Manual) Eosinophils # (Manual) INR D-Dimer ABG pH POC ABG pCO2 POC ABG pO2 ABG pO2 ABG HCO3 ABG O2 Saturation ABG Base Excess ABG Hemoglobin ABG Oxyhemoglobin ABG Sodium ABG Potassium ABG Chloride ABG Glucose Oxyhemoglobin Carboxyhemoglobin Sodium Potassium Chloride Carbon Dioxide BUN 89 H Creatinine 3.6 H Glucose 116 H POC Glucose 116 H 126 H Hemoglobin A1c Lactic Acid Calcium 7.7 L Phosphorus Magnesium Ferritin Total Bilirubin AST ALT Lactate Dehydrogenase C-Reactive Protein Albumin Triglycerides Arterial Blood Glucose Arterial Blood Ionized Calcium Urine Creatinine Coronavirus (PCR) Crossmatch 03/02/21 Unknown WBC RBC Hgb Hct MCV MCH MCHC RDW Plt Count Lymph % (Auto) Lymph # (Auto) Seg Neutrophils % Seg Neuts % (Manual) Lymphocytes % (Manual) Monocytes % (Manual) Nucleated RBC % Seg Neutrophils # Seg Neutrophils # Man Lymphocytes # (Manual) Monocytes # (Manual) Eosinophils # (Manual) INR D-Dimer ABG pH 7.282 L POC ABG pCO2 POC ABG pO2 ABG pO2 150.8 H ABG HCO3 30.1 H ABG O2 Saturation ABG Base Excess ABG Hemoglobin 6.9 L ABG Oxyhemoglobin ABG Sodium ABG Potassium ABG Chloride ABG Glucose Oxyhemoglobin Carboxyhemoglobin Sodium Potassium Chloride Carbon Dioxide BUN Creatinine Glucose POC Glucose Hemoglobin A1c Lactic Acid Calcium Phosphorus Magnesium Ferritin Total Bilirubin AST ALT Lactate Dehydrogenase C-Reactive Protein Albumin Triglycerides Arterial Blood Glucose Arterial Blood Ionized Calcium Urine Creatinine Coronavirus (PCR) Crossmatch
--- NOTE | 2021-03-02 12:51 | Progress Note ---
Assessment and Plan Assessment: Acute Hypoxic respiratory failure COVID-19 PNA Severe sepsis with septic shock Acute kidney injury secondary to ATN Hyperkalemia Hypernatremia DM2 on insulin Anemia Plan: Hemodialysis today for UF and clearance. Patient is anuric. Initiated on HD on 02/03/21 S/P Right IJ Trialysis dialysis catheter placement Strict I&O's monitoring Renally dose medications Assess dialysis needs daily Monitor for renal recovery Subjective Date of service: 03/02/21 Principal diagnosis: DEISI Interval history: Patient not directly seen or examined due to being with active COVID-19 infection to limit/reduce risk of exposure and or transmission of the disease in this pandemic and due to limited PPE resources. Objective - Vital Signs Vital signs: Vital Signs - 12hr 03/02/21 03/02/21 03/02/21 01:00 01:16 01:30 Temperature Pulse Rate 95 H 98 H 98 H Pulse Rate [ From Monitor] Respiratory 34 H 34 H 16 Rate Blood Pressure 118/73 118/73 118/73 O2 Sat by Pulse 98 98 98 Oximetry 03/02/21 03/02/21 03/02/21 01:46 02:00 02:16 Temperature Pulse Rate 97 H 98 H 98 H Pulse Rate [ From Monitor] Respiratory 15 24 18 Rate Blood Pressure 118/73 106/67 106/67 O2 Sat by Pulse 98 96 98 Oximetry 03/02/21 03/02/21 03/02/21 02:30 02:46 03:00 Temperature Pulse Rate 96 H 93 H 92 H Pulse Rate [ From Monitor] Respiratory 17 23 14 Rate Blood Pressure 106/67 106/67 102/61 O2 Sat by Pulse 98 98 Oximetry 03/02/21 03/02/21 03/02/21 03:16 03:30 03:45 Temperature 100.8 F H Pulse Rate 93 H 94 H Pulse Rate [ From Monitor] Respiratory 21 24 Rate Blood Pressure 102/61 102/61 O2 Sat by Pulse 98 98 Oximetry 03/02/21 03/02/21 03/02/21 03:46 04:00 04:16 Temperature Pulse Rate 99 H 106 H Pulse Rate [ 101 H From Monitor] Respiratory 28 H 17 Rate Blood Pressure 102/61 102/61 102/61 O2 Sat by Pulse 98 97 93 Oximetry 03/02/21 03/02/21 03/02/21 04:30 04:46 05:00 Temperature Pulse Rate 104 H 102 H 99 H Pulse Rate [ From Monitor] Respiratory 12 34 H 22 Rate Blood Pressure 153/75 153/75 114/61 O2 Sat by Pulse 99 99 94 Oximetry 03/02/21 03/02/21 03/02/21 05:16 05:30 05:46 Temperature Pulse Rate 97 H 94 H 92 H Pulse Rate [ From Monitor] Respiratory 35 H 20 34 H Rate Blood Pressure 114/61 114/61 114/61 O2 Sat by Pulse 98 98 97 Oximetry 03/02/21 03/02/21 03/02/21 06:00 06:16 06:30 Temperature Pulse Rate 90 90 89 Pulse Rate [ From Monitor] Respiratory 27 H 35 H 35 H Rate Blood Pressure 103/62 103/62 103/62 O2 Sat by Pulse 97 97 Oximetry 03/02/21 03/02/21 03/02/21 06:46 07:00 07:16 Temperature Pulse Rate 89 89 91 H Pulse Rate [ From Monitor] Respiratory 34 H 34 H 34 H Rate Blood Pressure 103/62 99/59 99/59 O2 Sat by Pulse 97 94 98 Oximetry 03/02/21 03/02/21 03/02/21 07:30 07:46 08:00 Temperature 98.6 F Pulse Rate 93 H 94 H 96 H Pulse Rate [ 91 H From Monitor] Respiratory 34 H 33 H 18 Rate Blood Pressure 99/59 99/59 117/71 O2 Sat by Pulse 98 97 93 Oximetry 03/02/21 03/02/21 03/02/21 08:16 08:30 08:46 Temperature Pulse Rate 93 H 88 86 Pulse Rate [ From Monitor] Respiratory 18 34 H 35 H Rate Blood Pressure 117/71 117/71 117/71 O2 Sat by Pulse 98 98 98 Oximetry 03/02/21 03/02/21 03/02/21 08:52 08:57 09:00 Temperature Pulse Rate 87 87 89 Pulse Rate [ From Monitor] Respiratory 34 H Rate Blood Pressure 117/71 117/71 101/60 O2 Sat by Pulse 97 98 96 Oximetry 03/02/21 03/02/21 03/02/21 09:16 09:30 09:46 Temperature Pulse Rate 91 H 91 H 91 H Pulse Rate [ From Monitor] Respiratory 32 H 35 H 19 Rate Blood Pressure 101/60 101/60 101/60 O2 Sat by Pulse 93 93 92 Oximetry 0503/02/21 03/02/21 10:00 10:16 10:30 Temperature Pulse Rate 90 89 89 Pulse Rate [ From Monitor] Respiratory 37 H 37 H 26 H Rate Blood Pressure 97/57 97/57 97/57 O2 Sat by Pulse 93 94 94 Oximetry 03/02/21 03/02/21 03/02/21 10:46 11:00 11:16 Temperature Pulse Rate 88 88 87 Pulse Rate [ From Monitor] Respiratory 34 H 34 H 34 H Rate Blood Pressure 97/57 95/52 95/52 O2 Sat by Pulse 93 92 92 Oximetry 03/02/21 03/02/21 03/02/21 11:30 11:45 12:00 Temperature 98.6 F Pulse Rate 87 86 87 Pulse Rate [ 87 From Monitor] Respiratory 34 H 34 H 34 H Rate Blood Pressure 95/52 94/55 O2 Sat by Pulse 93 94 93 Oximetry 03/02/21 12:06 Temperature Pulse Rate 87 Pulse Rate [ From Monitor] Respiratory Rate Blood Pressure 94/55 O2 Sat by Pulse 93 Oximetry - Lab 02/26/21 05:48 03/02/21 04:43 Most recent lab results ABG pH 7.282 pH Units (7.350-7.450) L 03/02/21 Unknown ABG pCO2 65.1 mm Hg 03/02/21 Unknown ABG pO2 150.8 mm Hg (80.0-90.0) H 03/02/21 Unknown ABG HCO3 30.1 mmol/L (20.0-26.0) H 03/02/21 Unknown ABG O2 Saturation 98.6 % (95.0-99.0) 03/02/21 Unknown Calcium 7.7 mg/dL (8.4-10.2) L 03/02/21 04:43 Phosphorus 7.90 mg/dL (2.5-4.5) H 02/21/21 16:35 Magnesium 2.60 mg/dL (1.7-2.3) H 02/21/21 16:35 Urine Creatinine 53.0 mg/dL (0.1-20.0) H 01/30/21 12:00 Urine Sodium 28 mmol/L 01/22/21 22:39 Medications & Allergies - Medications Allergies/Adverse Reactions: Allergies No Known Allergies Allergy (Unverified 03/12/20 13:41) Home Medications: Home Medications Medication Instructions Recorded Confirmed Last Taken Type Insulin NPH/Regular [Novolin 70/30] 18 unit SUB-Q TIDAC #1 vial 03/12/20 03/02/21 Unknown Rx Syringe-Needle,Insulin,0.5 ml 1 box MC TID #1 box 03/12/20 03/02/21 Unknown Rx [Insulin Syringe/Needle 0.5 ML] Active Medications: Generic Name Dose Route Start Last Admin Trade Name Freq PRN Reason Stop Dose Admin Acetaminophen 650 mg 01/24/21 12:58 02/25/21 13:31 Acetaminophen 325 Mg/10.15 Ml Oral Liqd Unit Dose FEEDTUBE 650 mg Q6H PRN Administration Pain, Mild (1-3) Lipase/Protease/Amylase 1 each 01/26/21 14:25 Lipase 10,500/Protease 25,000/Amylase 43,750 (Units) Dr Cap FEEDTUBE PRN PRN For Clogged Feeding Tube Dextrose 50 ml 01/27/21 07:24 Dextrose 50% In Water (25gm) 50 Ml Syringe IV Q30MIN PRN Hypoglycemia Protocol Fentanyl 50 mcg 01/22/21 22:39 02/25/21 10:25 Fentanyl 100 Mcg/2 Ml Inj IV 50 mcg Q10MIN PRN Administration ANALGESIA Heparin Sodium (Porcine) 2,000 unit 02/11/21 09:38 02/21/21 21:25 Heparin 10,000 Units/10 Ml Vial IV 2,000 unit SAGRARIO PRN Administration hemodialysis Heparin Sodium (Porcine) 5,000 unit 02/19/21 14:00 03/02/21 06:03 Heparin 5,000 Unit/1 Ml Vial SUB-Q 5,000 unit Q8HR CECE Administration Fentanyl Citrate 2,000 mcg in 100 mls @ 6.124 mls/hr 01/22/21 23:00 03/02/21 07:59 Fentanyl Drip Premix IV 3 mcg/kg/hr TITR CECE 18.371 mls/hr Administration Protocol 1 MCG/KG/HR Propofol 1,000 mg in 100 mls @ 3.674 mls/hr 01/22/21 23:45 02/21/21 08:30 Diprivan 10 Mg/Ml IV 0 mcg/kg/min TITR CECE 0 mls/hr Titration Protocol 5 MCG/KG/MIN Norepinephrine 4 mg in 250 mls @ 7.5 mls/hr 01/28/21 14:00 02/22/21 18:27 Levophed Drip 4 Mg/Ns 250 Ml IV 0 mcg/min TITR CECE 0 mls/hr Titration Protocol 2 MCG/MIN Dexmedetomidine HCl 1,000 mcg/ 260 mls @ 6.368 mls/hr 01/30/21 20:00 03/02/21 06:04 Sodium Chloride IV 0.8 mcg/kg/hr TITRATE CECE 25.474 mls/hr Administration Protocol 0.2 MCG/KG/HR Sodium Chloride 100 mls @ 999 mls/hr 02/27/21 11:00 Nacl 0.9% IV SAGRARIO PRN Hypotension Lansoprazole 30 mg 02/18/21 10:00 03/02/21 09:26 Lansoprazole 30 Mg Solutab FEEDTUBE 30 mg QDAY CECE Administration Senna/Docusate Sodium 1 tab 02/25/21 10:00 03/02/21 09:26 Sennosides/Docusate Sodium 8.6/50 Mg Tab PO 1 tab BID CECE Administration Simple Syrup 15 ml 01/26/21 14:25 02/21/21 21:24 Simple Syrup 15 Ml FEEDTUBE 15 ml PRN PRN Administration Hypoglycemia Simple Syrup 30 ml 01/26/21 14:25 Simple Syrup 15 Ml FEEDTUBE PRN PRN Hypoglycemia Sodium Bicarbonate 325 mg 01/26/21 14:25 Sodium Bicarbonate 325 Mg Tab FEEDTUBE PRN PRN For Clogged Feeding Tube
--- NOTE | 2021-03-02 13:38 | Event Note ---
Date: 03/02/21 Made patient NPO after MN except sips of water with meds/through tube Ordered repeat COVID test Tentative plans for permcath placement tomorrow.
--- NOTE | 2021-03-02 14:22 | Consultation ---
History of Present Illness - Reason for Consult Consult date: 03/02/21 - History of Present Illness reason for consult--penile ulceration History of presenting illness, patient is a 60-year-old male who presented to the emergency room complaining of shortness of breath going on for about 3 days, patient said the symptoms became progressively worse and made in call 911. Patient admitted to having been in the presence of many cases of COVID-19 and admitted to having fever and chills, loss of smell and taste, body aches pt on vent problem list Acute Hypoxic respiratory failure COVID-19 Severe sepsis with septic shock Acute kidney injury secondary to ATN Hyperkalemia Hypernatremia DM2 on insulin Anemia increased BMI ABD LARGE + PENOSCROTAL EDEMA ULCER ON DISTAL SHAFT OF PENIS A/P penile ulceration [place] [facility] [place] care Past History Past Medical History: diabetes, hypertension, hyperlipidemia, renal failure, other (HIDRADENTIS) Past Surgical History: Other (HIDRADENITIS) Social history: no significant social history Family history: no significant family history Medications and Allergies Allergies Allergy/AdvReac Type Severity Reaction Status Date / Time No Known Allergies Allergy Unverified 03/12/20 13:41 Home Medications Medication Instructions Recorded Confirmed Last Taken Type Insulin NPH/Regular [Novolin 70/30] 18 unit SUB-Q TIDAC #1 vial 03/12/20 03/02/21 Unknown Rx Syringe-Needle,Insulin,0.5 ml 1 box MC TID #1 box 03/12/20 03/02/21 Unknown Rx [Insulin Syringe/Needle 0.5 ML] Active Meds: Active Medications Acetaminophen (Acetaminophen 325 Mg/10.15 Ml Oral Liqd Unit Dose) 650 mg FEEDTUBE Q6H PRN PRN Reason: Pain, Mild (1-3) Last Admin: 02/25/21 13:31 Dose: 650 mg Documented by: Lipase/Protease/Amylase (Lipase 10,500/Protease 25,000/Amylase 43,750 (Units) Dr Claudio) 1 each FEEDTUBE PRN PRN PRN Reason: For Clogged Feeding Tube Dextrose (Dextrose 50% In Water (25gm) 50 Ml Syringe) 50 ml IV Q30MIN PRN; Protocol PRN Reason: Hypoglycemia Fentanyl (Fentanyl 100 Mcg/2 Ml Inj) 50 mcg IV Q10MIN PRN PRN Reason: ANALGESIA Last Admin: 02/25/21 10:25 Dose: 50 mcg Documented by: Heparin Sodium (Porcine) (Heparin 10,000 Units/10 Ml Vial) 2,000 unit IV S[place]IO PRN PRN Reason: hemodialysis Last Admin: 02/21/21 21:25 Dose: 2,000 unit Documented by: Heparin Sodium (Porcine) (Heparin 5,000 Unit/1 Ml Vial) 5,000 unit SUB-Q Q8HR CECE Last Admin: 03/02/21 13:53 Dose: 5,000 unit Documented by: Fentanyl Citrate (Fentanyl Drip Premix) 2,000 mcg in 100 mls @ 6.124 mls/hr IV TITR CECE; Protocol Last Admin: 03/02/21 13:50 Dose: 3 mcg/kg/hr, 18.371 mls/hr Documented by: Propofol (Diprivan 10 Mg/Ml) 1,000 mg in 100 mls @ 3.674 mls/hr IV TITR CECE; Protocol Last Titration: 02/21/21 08:30 Dose: 0 mcg/kg/min, 0 mls/hr Documented by: Norepinephrine (Levophed Drip 4 Mg/Ns 250 Ml) 4 mg in 250 mls @ 7.5 mls/hr IV TITR CECE; Protocol Last Titration: 02/22/21 18:27 Dose: 0 mcg/min, 0 mls/hr Documented by: Dexmedetomidine HCl 1,000 mcg/ (Sodium Chloride) 260 mls @ 6.368 mls/hr IV TITRATE CECE; Protocol Last Admin: 03/02/21 13:51 Dose: 0.8 mcg/kg/hr, 25.474 mls/hr Documented by: Sodium Chloride (Nacl 0.9%) 100 mls @ 999 mls/hr IV SAGR[place]IO PRN PRN Reason: Hypotension Lansoprazole (Lansoprazole 30 Mg Solutab) 30 mg FEEDTUBE QDAY CECE Last Admin: 03/02/21 09:26 Dose: 30 mg Documented by: Senna/Docusate Sodium (Sennosides/Docusate Sodium 8.6/50 Mg Tab) 1 tab PO BID CECE Last Admin: 03/02/21 09:26 Dose: 1 tab Documented by: Simple Syrup (Simple Syrup 15 Ml) 15 ml FEEDTUBE PRN PRN PRN Reason: Hypoglycemia Last Admin: 02/21/21 21:24 Dose: 15 ml Documented by: Simple Syrup (Simple Syrup 15 Ml) 30 ml FEEDTUBE PRN PRN PRN Reason: Hypoglycemia Sodium Bicarbonate (Sodium Bicarbonate 325 Mg Tab) 325 mg FEEDTUBE PRN PRN PRN Reason: For Clogged Feeding Tube Exam - Constitutional Vitals: Temp Pulse Resp BP Pulse Ox 98.6 F 95 H 19 97/58 91 03/02/21 12:00 03/02/21 14:00 03/02/21 14:00 03/02/21 14:00 03/02/21 13:45 Results - Labs CBC & Chem 7: 02/26/21 05:48 03/02/21 04:43 Labs: Abnormal lab results 03/01/21 03/02/21 03/02/21 Range/Units 23:22 04:43 05:46 ABG pH (7.350-7.450) pH Units ABG pO2 (80.0-90.0) mm Hg ABG HCO3 (20.0-26.0) mmol/L ABG Hemoglobin (14.0-18.0) gm/dl BUN 89 H (9-20) mg/dL Creatinine 3.6 H (0.8-1.3) mg/dL Glucose 116 H (75-100) mg/dL POC Glucose 116 H 126 H (70-105) mg/dL Calcium 7.7 L (8.4-10.2) mg/dL 03/02/21 03/02/21 Range/Units 11:35 Unknown ABG pH 7.282 L (7.350-7.450) pH Units ABG pO2 150.8 H (80.0-90.0) mm Hg ABG HCO3 30.1 H (20.0-26.0) mmol/L ABG Hemoglobin 6.9 L (14.0-18.0) gm/dl BUN (9-20) mg/dL Creatinine (0.8-1.3) mg/dL Glucose (75-100) mg/dL POC Glucose 117 H (70-105) mg/dL Calcium (8.4-10.2) mg/dL
[2021-03-02] MEDS: NEOMY 3.5 MG/BACIT 400 UNITS/POLY B 5000 UNITS/GM OINT PACKET TP SCH ×2 (16:14→20:35)
[2021-03-02 16:20] LABS: Hematocrit 20.4 % (35.5-45.6); Hemoglobin 7.1 gm/dl (11.8-15.2); Mean Corpuscular HGB Conc 35 % (32-34); Mean Corpuscular Volume 95 fl (84-94); Platelet Count 331 K/mm3 (140-440); Red Blood Count 2.15 M/mm3 (3.65-5.03); Red Cell Distribution Width 17.6 % (13.2-15.2)
--- NOTE | 2021-03-02 17:16 | Progress Note ---
Assessment and Plan Assessment and plan: This is a 60-year-old male with diabetes mellitus, hypertension, hyperlipidemia, chronic renal insufficiency who was admitted on 01/23 as a COVID-19 PUI with Sepsis, COVID-19 pneumonia, coag negative staph bacteremia, acute hypoxic respiratory failure, and acute kidney injury. Sepsis COVID-19 pneumonia Coag-neg Staph bacteremia Acute hypoxic respiratory failure Acute kidney injury, HD initiated 02/03 Anemia Diabetes mellitus Hypertension Hyperlipidemia Chronic renal insufficiency Elevated D-dimer Penile ulceration -[facility], nephrology, infectious disease, GI , vascular surgery, urology neurology consulted, appreciate recommendations -s/p Antibiotic therapy, remdesivir, Steroid therapy -COVID-19 PCR positive, Pneumonia on CXR -Mechanical ventilation, wean as tolerated -VAP bundle -HD per nephrology -S/p 4 units PRBC during stay -Trend BMP, CBC, COVID-19 inflammatory markers -Bilateral lower extremity and upper extremity Doppler ultrasound negative for DVT/SVT -SSI and Long-acting insulin -Accu-Cheks every 6 while on tube feedings -Hold home antihypertensive regimen and resume when appropriate -S/p vasopressor support -Blood pressure monitoring per protocol -S/p NaHCO3 gtt -02/17 CT head showed no acute intracranial abnormality, paranasal sinus disease -Bowel regimen -02/24 EEG finding consistent with encephalopathy and/or drug effect, possibility of toxic metabolic etiology cannot be excluded, possibility of structural lesion on the left side cannot be excluded given left being slightly slower than the right. -Sedation with fentanyl and Precedex -Neosporin twice daily to penile shaft ulcer DVT/GI prophylaxis: SCDs to bilateral lower extremities while in bed, PPI, heparin subq Dispo: ICU The high probability of a clinically significant, sudden or life threatening deterioration of the [multi] system(s) required my full and direct attention, intervention and personal management. The aggregate critical care time was [35] minutes. This time is in addition to time spent performing reported procedures but includes the following: [x] Data Review and interpretation [x] Patient assessment and monitoring of vital signs [x] Documentation [x] Medication orders and management History Interval history: This is a 60-year-old male with diabetes mellitus, hypertension, hyperlipidemia, chronic renal insufficiency presents to the emergency department on 01/23 with shortness of breath, fevers chills, loss of smell and taste and body aches for the past 3 days via EMS. Per EMS patient's oxygen saturation on room air was 50% and after being placed on nonrebreather it increased 75%. Upon arrival to the emergency department patient was being bagged by EMS. In the emergency room patient was intubated due to severe hypoxia, increased work of breathing and lethargy. Patient was sedated on propofol and fentanyl. Patient presented with fever, tachycardia, tachypnea and acute hypoxic respiratory failure with PNA on CXR meeting Sepsis criteria. Lab work in the emergency department revealed hyponatremia, hypokalemia, hypochloremia, elevated CR/BUN and CXR showed bilateral pneumonia. Patient was admitted to the hospital service as a COVID-19 PUI with consults to infectious disease, nephrology and critical care medicine. 01/24/2021: Patient is intubated and sedated, patient is positive for COVID-19 infection. ID was consulted and put on dexamethasone and remdesivir. Patient has DEISI and nephrology is following. Creatinine stable, patient is urinating. Discussed with nephrology and he is okay with remdesivir. Pulmonary critical care is following for his vent setting. PEEP of 8 and FiO2 of 85%. Patient was alert and off sedatives. 01/25/2021; patient is intubated and on mechanical ventilation. Continue with treatment of Covid. Nephrology and ID is following. Pulmonary is following for vent management 01/26: Remains on mechanical ventilation and [facility] increased his PEEP. [facility] has ordered Precedex for sedation. Possibly need to prone this p.m. No acute events reported overnight. This morning his D-dimer is greater than 10,000 and we have started him on Lovenox 120 mg daily. Nutrition has been consulted for initiation of tube feedings. Patient remains sedated on propofol 40 and fentanyl for the time my examination this morning. 01/27: Continue Lovenox, remdesivir and empiric antibiotics. Patient had a T-max of 101 overnight. The time of examination patient is on CMV 500/18/14/0.61. Kidney function slightly worsened. Sedated on fentanyl ground-level fall and Precedex. Nephrology has increased IV fluids to 100 ml/hr. Continue to trend BMP and CBC. Sedation vacation attempt by RN this AM. 01/28: Patient completed antibiotics today [facility] will paralyze patient and increase sedation. PICC line ordered for possible vasopressor therapy need. Patient's D-dimer remains greater than 10,000 and he still has hyperchloremia. Patient's kidney function has improved today. May need to prone the patient if no improvement in oxygenation is noted in the next 24 hours. The time of my examination patient is sedated with propofol, fentanyl and Precedex and is on assist control 500/18/16/0.80 hypoxic on ABG on 60% FiO2. 01/29: Patient was started on Nimbex yesterday and his ABG this morning showed r espiratory acidosis with hypercapnia and his respiratory rate was increased. We will obtain a repeat ABG this afternoon. This morning patient is hypernatremic, hyperkalemic and hyperchloremic. His potassium has been corrected with the management and will obtain repeat BMP tomorrow. His kidney functions have remained stable and we will await nephrology's input. No acute events reported overnight. This morning the time my examination patient sedated with propofol, Precedex and fentanyl and paralyzed with Nimbex. He is on assist control 500/24/16 0.80. 01/30: This morning patient is hypokalemic again and was given Kayexalate. Patient has hypernatremia and hyper chloremia and his renal function is slightly worse after receiving Lasix yesterday. His D-dimer remains greater than 10,000 and he is still on a paralytic. Patient is sedated on Precedex, fentanyl, propofol. Mechanical ventilation settings seven-point /61/28. [facility] has decided to continue paralytics for 48 more hours and will attempt proning the patient. Increased free water flushes 300 cc every 4 hours. Patient states has restarted his antibiotics cefepime and vancomycin and recultured. 01/31/21 Hyperkalemia, Treated 02/01/21 Hyperkalemia, Treated 02/02: Patient's kidney function continues to worsen and a stat BMP this morning shows BUN/creatinine 20/6.1 and he remains hypocalcemic and hypernatremic, hypokalemic and hypochloremic. Patient received 2 g of calcium gluconate and Kayexalate and his repeat potassium was 4.3 this afternoon. He remains antibiotic therapy and steroids. Nephrology has placed the patient on bicarb drip given metabolic acidosis and has decided to hold off hemodialysis till tomorrow.The time my examination patient is sedated on fentanyl, Precedex and on assist control 500/20/12/0.70. s/p paralytic. 02/03: Today patient's ABG shows respiratory acidosis however it is improving, hypernatremia, hyperchloremia, metabolic acidosis on BMP, worsening kidney function BUN/creatinine 130/9.2 with hyperphosphatemia. Patient received a Vas- Cath to his right IJ for initiation of dialysis. At the time of my examination patient remains sedated on fentanyl, propofol and Precedex with vasopressor support with Levophed at 2. 02/04: At the time of examination patient was on assist control tidal volume 500, rate 40, PEEP of 12, FiO2 85%. Patient had a T-max of 100.9 and infectious disease has stopped his vancomycin given negative MRSA. This afternoon patient respiked his temperature and was pancultured again. Patient was started on hemodialysis yesterday and will receive HD again today. Patient is sedated on Precedex, propofol, fentanyl and remains on Levophed. He is on assist control tidal volume 500, rate of 30, PEEP of 12, FiO2 of 85%. Patient still has some respiratory acidosis however his hypernatremia and hyperchloremia have improved and his metabolic acidosis has resolved. Patient will receive hemodialysis today 02/05: Patient continues to have low-grade fever temp this morning time examination he was on assist control tidal volume 500, and sedated on propofol/fentanyl/Precedex and is on Levophed. Hemodialysis per nephrology. Antibiotics per ID. Patient's blood culture from 02/04 grew gram-positive cocci in clusters in 1/2 bottles and he was started on vancomycin. 02/06: Patients ABG showed respiratory acidosis and the tracings were changed however a repeat ABG showed showed acidosis.[facility] will start a bicarb drip after giving 2 amps of bicarb push. Yesterday patient blood cultures grew gram- positive cocci and he was started on vancomycin. At the time my examination patient was on assist control tidal volume 550, rate 34, PEEP 16, FiO2 90% and sedated on fentanyl, Precedex, propofol elevated pressure support with Levophed. Bilateral lower extremity Doppler ultrasounds done yesterday showed no evidence of DVT/SVT. 02/07/2021; patient is still on the vent with PEEP of 16 and FiO2 of 90%, sedated with fentanyl Precedex and propofol. Patient still requiring Levophed. Patient was sedated yesterday and was given bicarb push. Blood culture grew gra m-positive cocci in clusters and he is on vancomycin, will follow identification. 02/08/2021;patient is still on the vent with PEEP of 16 and FiO2 of 90%, sedated with fentanyl Precedex and propofol. Patient still requiring Levophed. Patient was sedated yesterday and was given bicarb push. Blood culture grew gram- positive cocci in clusters and he is on vancomycin, will follow identification. Patient is currently on dialysis. Patient is anemic transfuse if hemoglobin is below 7. 02/09: This morning patient has slight hypokalemia, hypochorlemia, hyponatremia and metabolic alkalosis. [facility] will continue bicarb gtt given that the patient does not have HD access at this time. We will replete the potassium and recheck BMP in the AM. We will type and cross in anticipation of PRBC transfusion. This morning he is sedated on Ativan, fentayl, and precedex. Will obtain a triglyceride level today in hopes to resume propofol. Patient is alkalotic and BMP however we will continue with bicarb drip per [facility] given that the patient does not have any access for hemodialysis. Anticipate replacing hemodialysis catheter tomorrow or Tuesday. The time my examination he is on AC TV 550, Rate 34, PeeP 16, FiO2 .65. 02/10: A.m. labs still pending, [facility] plans to replace HD catheter tomorrow as the patient is still febrile however his fever curve is trending down, remains on a bicarb drip and on vancomycin. Today at the time my examination patient was sedated on Precedex, Ativan and fentanyl and he is on assist control tidal 11/04/1951, rate 34, PEEP 16, FiO2 65%. Overnight patient was hypotensive and received 1 dose of midodrine. 02/11: Patient is still having low-grade temperatures that we will obtain a bilateral lower upper extremity venous Doppler ultrasound given that his repeat cultures have been negative so far. Patient received a Vas-Cath today for hemodialysis. The time examination patient is on assist control tidal volume 550, rate of 34, PEEP of 16 and FiO2 of 75%. Patient was hypokalemic and anemic yesterday which were both repleted with potassium and 1 unit PRBC. 02/12: 02/12: Patient had a 12-second run of V. tach today, his potassium and magnesium were low which was repleted. Renal adjusted potassium bath. We will obtain a triglyceride level in hopes to restarting to prevent as needed. This morning at the time my examination patient was sedated on fentanyl, Ativan and Precedex and remained on a bicarb drip. He was on assist control tidal volume 550, rate 34, PEEP 16, FiO2 85%. We will obtain a occult stool given no evident source of bleeding and need for transfusion. Anemia possibly due to hemodialysis. 02/13: Patient's T-max was 100.7, remains on fentanyl, Ativan, Precedex and bicarb drip this morning at some examination on assist control tidal volume 550, rate 34, PEEP 16 and FiO2 85%. On the labs this morning is slightly hypokalemic and remains metabolic alkalotic on BMP. His occult was positive. His Lovenox and consult GI. Patient received hemodialysis today. 02/14: cont PPI, GI recommended to scope now, monitor clinically, tolerating TF, remains intubated. Hb 6.9 today - transfuse another unit. very poor prognosis. 02/15: H&H appears to be stable following 1 unit of transfusion yesterday. Continue to hold heparin and aspirin products. Continue to monitor clinically. Poor prognosis. Wean off from vent as tolerated. 02/16: Infectious disease has signed off, his Ativan drip was discontinued and to prevent drip will be started when patient needs it. T-max 100.6 yesterday afternoon. He received hemodialysis today and at the time my examination was still on mechanical ventilation assist control tidal volume 550, rate 34, PEEP 16 on 70% FiO2. Patient was sedated on fentanyl dexamethasone and Ativan. No acute events reported overnight. 02/17: This morning patient was scheduled to get 2 units PRBC however his repeat H/H after 1 unit PRBC was 7.6/22.8 and the width of the second unit PRBC. This morning patient was sedated on fentanyl, propofol, Precedex and on assist control tolerated by 50, rate 34, PEEP of 16, FiO2 35%. Wound care was consulted today for his upper lip wound. Nephrology continues to withhold di alysis. No acute events reported overnight. Dr. Adkins was unable to contact family for updates. 02/18: Family updated by Dr. Adkins and Dr. Reddy. Patient had a hemodialysis today. The time my examination patient was on assist control tidal volume 550, rate 34, PEEP 16 and FiO2 35%. Overnight patient had a CT head and he was placed on 3% FiO2 and took "a long time to recover" per RN report. 02/19: Patient's D-dimer is trending up therefore he was started on prophylactic anticoagulation, no bowel movement for several days so he was started on mag citrate today. The time examination patient is sedated on Precedex 1.2, fentanyl 3, propofol 20 on assist control tidal volume 550, rate 34, PEEP 16, 80% FiO2 and on his ABG his PaO2 is 106. RT will try to wean as tolerated. Repeat COVID-19 PCR today was positive.Dr. Adkins updated the family today. 02/20: Patient received hemodialysis today. In the time my examination patient was sedated on Precedex, fentanyl, propofol and on assist control tidal line 550, rate 34, PEEP of 16 and 75% FiO2. Patient had a bowel movement yesterday. 02/21 no new concerns at this time afebrile Hospital course remains uncomplicated. 02/22. Hospital course complicated by an episode of ectopy over the p.m. Patient required Levophed for blood pressure control. Remains intubated sedated. Tolerated hemodialysis yesterday. 02/23: At the time my examination patient is on assist control tidal volume 550, rate 34, PEEP 16, FiO2 70% and is not sedated. Patient does not follow commands however his eyes open spontaneously and he does not track/focus. 02/24: Neurology consulted, EEG pending. No acute events reported overnight. Patient remains on hyperventilation totaling 550, rate 34, PEEP of 16 on 70% FiO2. Patient received hemodialysis yesterday. 02/25: EEG from 02/24 is suggestive of encephalopathy (toxic metabolic etiology cannot be excluded). This afternoon his peak pressures and and mean airway pressure is elevated so we obtained a CXR and ABG. Results were called to Dr. Masters. Patient received 2 mg of Versed was placed back on his sedation with fentanyl and Precedex. 02/26: Patient is on pressure ventilation FiO2 70%, Pressure inspiration 25, rate 34, PEEP 10 and sedated on fentanyl at 2mcgs and Precedex at 0.2. We will obtain a cxr for evaluation. Patient seems to be much more comfortable today. 02/27: CXr unchanged, at the time of my examination patient is on pressure control ventilation FiO2 70%, pressure support 26, rate 34 n.p.o. for 10 and sedated on fentanyl at 2 and Precedex at 0.1. His latest ABG 7.3, CO2 49, PO2 111, base excess 24. Patient is to receive hemodialysis today. No acute events reported overnight. Patient still not following commands. 02/28: Continue mechanical ventilation per pulmonary recommendations. Patient currently in AC mode ventilation rate 34, FiO2 70%, PEEP 15. 02/24 EEG finding consistent with encephalopathy and/or drug effect, possibility of toxic metabolic etiology cannot be excluded, possibility of structural lesion on the left side cannot be excluded given left being slightly slower than the right. Continue hemodialysis per nephrology. Currently with sedation of fentanyl and Precedex. Pulmonary plans for trach when ventilator settings allow. 03/01: Patient remains on mechanical ventilation AC mode, FiO2 70%, PEEP of 10. Hemodialysis initiated on 02/03/2021. Continue per nephrology. Patient will need tracheostomy once ventilator settings allow. Continue supportive care with tube feedings. Aspiration precautions. Patient appears to have penile ulceration and purulence. Consult urology for further evaluation. Prognosis remains guarded. 03/02: Tentative plan to place permacath tomorrow, patient will be n.p.o. after midnight and repeat COVID-19 PCR was ordered. Urology was consulted for a possible penile fistula. Patient received hemodialysis today. Today at the time of examination patient was on pressure control ventilation with a PEEP of 10 and FiO2 of 60 sedated on fentanyl and Precedex. Hospitalist Physical - Constitutional Vitals: Temp Pulse Resp BP Pulse Ox 96.8 F L 96 H 19 118/62 93 03/02/21 15:25 03/02/21 17:00 03/02/21 16:00 03/02/21 17:00 03/02/21 16:00 General appearance: Present: no acute distress, obese, other (Sedated on mechanical ventilation) - EENT Eyes: Present: PERRL ENT: poor dentition - Neck Neck: Absent: cervical LAD - Respiratory Respiratory effort: normal Respiratory: bilateral: diminished - Cardiovascular Rhythm: regular Heart Sounds: Present: S1 & S2. Absent: systolic murmur, diastolic murmur - Extremities Extremities: no ischemia, pulses intact, pulses symmetrical, normal temperature, normal color Extremity abnormal: edema - Peripheral Assessment Generalized Edema Type: Pitting Edema Degree: 2+ Capillary Refill: < 3 seconds Skin Temperature: Warm Peripheral Pulses: within normal limits - Abdominal General gastrointestinal: soft, non-tender, non-distended, normal bowel sounds - Integumentary Integumentary: Present: warm, dry - Psychiatric Psychiatric: other (sedated) - Neurologic Neurologic: other (sedated) - Allied Health Allied health notes reviewed: nursing, RT HEART Score - HEART Score Risk factors: 1-2 risk factors Troponin: < normal limit - Critical Actions Critical Actions: 0-3 pts:0.9-1.7%risk of adverse cardiac event.Candidate for discharge Results - Labs CBC & Chem 7: 03/02/21 15:17 03/02/21 04:43 Labs: Laboratory Last Values WBC 9.5 K/mm3 (4.5-11.0) 03/02/21 15:17 RBC 2.15 M/mm3 (3.65-5.03) L 03/02/21 15:17 Hgb 7.1 gm/dl (11.8-15.2) L 03/02/21 15:17 Hct 20.4 % (35.5-45.6) L 03/02/21 15:17 MCV 95 fl (84-94) H 03/02/21 15:17 MCH 33 pg (28-32) H 03/02/21 15:17 MCHC 35 % (32-34) H 03/02/21 15:17 RDW 17.6 % (13.2-15.2) H 03/02/21 15:17 Plt Count 331 K/mm3 (140-440) 03/02/21 15:17 Lymph % (Auto) 11.0 % (13.4-35.0) L 02/15/21 05:00 Dyer % (Auto) 4.2 % (0.0-7.3) 02/15/21 05:00 Eos % (Auto) 1.2 % (0.0-4.3) 02/15/21 05:00 Baso % (Auto) 0.6 % (0.0-1.8) 02/15/21 05:00 Lymph # (Auto) 1.1 K/mm3 (1.2-5.4) L 02/15/21 05:00 Dyer # (Auto) 0.4 K/mm3 (0.0-0.8) 02/15/21 05:00 Eos # (Auto) 0.1 K/mm3 (0.0-0.4) 02/15/21 05:00 Baso # (Auto) 0.1 K/mm3 (0.0-0.1) 02/15/21 05:00 Add Manual Diff Complete 02/24/21 04:25 Total Counted 100 02/24/21 04:25 Seg Neutrophils % 83.0 % (40.0-70.0) H 02/15/21 05:00 Seg Neuts % (Manual) 82.0 % (40.0-70.0) H 02/24/21 04:25 Band Neutrophils % 2.0 % 02/16/21 Unknown Lymphocytes % (Manual) 3.0 % (13.4-35.0) L 02/24/21 04:25 Reactive Lymphs % (Man) 1.0 % 01/27/21 05:29 Monocytes % (Manual) 11.0 % (0.0-7.3) H 02/24/21 04:25 Eosinophils % (Manual) 1.0 % (0.0-4.3) 02/24/21 04:25 Basophils % (Manual) 1.0 % (0.0-1.8) 02/24/21 04:25 Metamyelocytes % 2.0 % 02/24/21 04:25 Nucleated RBC % Not Reportable 02/24/21 04:25 Seg Neutrophils # 8.6 K/mm3 (1.8-7.7) H 02/15/21 05:00 Seg Neutrophils # Man 9.4 K/mm3 (1.8-7.7) H 02/24/21 04:25 Band Neutrophils # 0.0 K/mm3 02/24/21 04:25 Lymphocytes # (Manual) 0.3 K/mm3 (1.2-5.4) L 02/24/21 04:25 Abs React Lymphs (Man) 0.0 K/mm3 02/24/21 04:25 Monocytes # (Manual) 1.3 K/mm3 (0.0-0.8) H 02/24/21 04:25 Eosinophils # (Manual) 0.1 K/mm3 (0.0-0.4) 02/24/21 04:25 Basophils # (Manual) 0.1 K/mm3 (0.0-0.1) 02/24/21 04:25 Metamyelocytes # 0.2 K/mm3 02/24/21 04:25 Myelocytes # 0.0 K/mm3 02/24/21 04:25 Promyelocytes # 0.0 K/mm3 02/24/21 04:25 Blast Cells # 0.0 K/mm3 02/24/21 04:25 WBC Morphology Not Reportable 02/24/21 04:25 Hypersegmented Neuts Not Reportable 02/24/21 04:25 Hyposegmented Neuts Not Reportable 02/24/21 04:25 Hypogranular Neuts Not Reportable 02/24/21 04:25 Smudge Cells Not Reportable 02/24/21 04:25 Toxic Granulation Not Reportable 02/24/21 04:25 Toxic Vacuolation Not Reportable 02/24/21 04:25 Dohle Bodies Not Reportable 02/24/21 04:25 Pelger-Huet Anomaly Not Reportable 02/24/21 04:25 Fátima Rods Not Reportable 02/24/21 04:25 Platelet Estimate Consistent w auto 02/24/21 04:25 Clumped Platelets Not Reportable 02/24/21 04:25 Plt Clumps, EDTA Not Reportable 02/24/21 04:25 Large Platelets Not Reportable 02/24/21 04:25 Giant Platelets Not Reportable 02/24/21 04:25 Platelet Satelliting Not Reportable 02/24/21 04:25 Plt Morphology Comment Not Reportable 02/24/21 04:25 RBC Morphology Not Reportable 02/24/21 04:25 Dimorphic RBCs Not Reportable 02/24/21 04:25 Polychromasia Few 02/24/21 04:25 Hypochromasia Not Reportable 02/24/21 04:25 Poikilocytosis Not Reportable 02/24/21 04:25 Anisocytosis 1+ 02/24/21 04:25 Microcytosis Not Reportable 02/24/21 04:25 Macrocytosis Not Reportable 02/24/21 04:25 Spherocytes Not Reportable 02/24/21 04:25 Pappenheimer Bodies Not Reportable 02/24/21 04:25 Sickle Cells Not Reportable 02/24/21 04:25 Target Cells Not Reportable 02/24/21 04:25 Tear Drop Cells Not Reportable 02/24/21 04:25 Ovalocytes Not Reportable 02/24/21 04:25 Helmet Cells Not Reportable 02/24/21 04:25 Potter-Mccamey Bodies Not Reportable 02/24/21 04:25 Teaberry Rings Not Reportable 02/24/21 04:25 Ludmila Cells Not Reportable 02/24/21 04:25 Bite Cells Not Reportable 02/24/21 04:25 Crenated Cell Not Reportable 02/24/21 04:25 Elliptocytes Not Reportable 02/24/21 04:25 Acanthocytes (Spur) Not Reportable 02/24/21 04:25 Rouleaux Not Reportable 02/24/21 04:25 Hemoglobin C Crystals Not Reportable 02/24/21 04:25 Schistocytes Not Reportable 02/24/21 04:25 Malaria parasites Not Reportable 02/24/21 04:25 Aquiles Bodies Not Reportable 02/24/21 04:25 Hem Pathologist Commnt No 02/24/21 04:25 PT 14.9 Sec. (12.2-14.9) 02/11/21 08:27 INR 1.17 (0.87-1.13) H 02/11/21 08:27 D-Dimer 6536.84 ng/mlDDU (0-234) H 02/25/21 09:03 ABG pH 7.282 pH Units (7.350-7.450) L 03/02/21 Unknown POC ABG pCO2 52.3 mmHg (32.0-48.0) H 03/01/21 03:29 ABG pCO2 65.1 mm Hg 03/02/21 Unknown POC ABG pO2 115.1 mmHg (83-108) H 03/01/21 03:29 ABG pO2 150.8 mm Hg (80.0-90.0) H 03/02/21 Unknown POC ABG HCO3 26.8 03/01/21 03:29 ABG HCO3 30.1 mmol/L (20.0-26.0) H 03/02/21 Unknown ABG O2 Saturation 98.6 % (95.0-99.0) 03/02/21 Unknown ABG O2 Content 9.7 (0.0-44) 03/02/21 Unknown POC ABG Base Excess 0.6 03/01/21 03:29 ABG Base Excess 2.9 mmol/L (-2.0-3.0) 03/02/21 Unknown ABG Hemoglobin 6.9 gm/dl (14.0-18.0) L 03/02/21 Unknown ABG Oxyhemoglobin 96.9 (94-98) 03/01/21 03:29 ABG Carboxyhemoglobin 2.2 % (0.0-5.0) 03/02/21 Unknown ABG Methemoglobin 0.6 % (0.0-1.5) 03/02/21 Unknown ABG Sodium 135.6 mmol/L (136.0-145.0) L 03/01/21 03:29 ABG Potassium 3.8 mmol/L (3.40-4.50) 03/01/21 03:29 ABG Chloride 101.0 mmol/L (98-107) 03/01/21 03:29 ABG Glucose 117 mg/dL (65-95) H 03/01/21 03:29 Oxyhemoglobin 95.8 % (95.0-99.0) 03/02/21 Unknown Carboxyhemoglobin 1.6 (0.5-1.5) H 03/01/21 03:29 FiO2 70 % 03/02/21 Unknown FiO2 % 70.0 03/01/21 03:29 Sodium 142 mmol/L (137-145) 03/02/21 04:43 Potassium 4.1 mmol/L (3.6-5.0) 03/02/21 04:43 Chloride 101.7 mmol/L (98-107) 03/02/21 04:43 Carbon Dioxide 29 mmol/L (22-30) 03/02/21 04:43 Anion Gap 15 mmol/L 03/02/21 04:43 BUN 89 mg/dL (9-20) H 03/02/21 04:43 Creatinine 3.6 mg/dL (0.8-1.3) H 03/02/21 04:43 Estimated GFR 21 ml/min 03/02/21 04:43 BUN/Creatinine Ratio 25 % 03/02/21 04:43 Glucose 116 mg/dL (75-100) H 03/02/21 04:43 POC Glucose 117 mg/dL (70-105) H 03/02/21 11:35 Hemoglobin A1c 6.3 % (4-6) H 02/02/21 16:00 Lactic Acid 1.90 mmol/L (0.7-2.0) 01/24/21 14:38 Calcium 7.7 mg/dL (8.4-10.2) L 03/02/21 04:43 Phosphorus 7.90 mg/dL (2.5-4.5) H 02/21/21 16:35 Magnesium 2.60 mg/dL (1.7-2.3) H 02/21/21 16:35 Ferritin 867.8 ng/mL (30.0-300.0) H 02/26/21 05:48 Total Bilirubin 1.50 mg/dL (0.1-1.2) H 01/26/21 05:47 AST 37 units/L (5-40) 01/26/21 05:47 ALT 29 units/L (7-56) 01/26/21 05:47 Alkaline Phosphatase 70 units/L (35-129) 01/26/21 05:47 Lactate Dehydrogenase 345 units/L (91-180) H 02/19/21 05:45 C-Reactive Protein 5.90 mg/dL (0.00-1.30) H 02/26/21 05:48 Total Protein 7.2 g/dL (6.3-8.2) 01/26/21 05:47 Albumin 2.2 g/dL (3.9-5) L 01/26/21 05:47 Albumin/Globulin Ratio 0.4 % 01/26/21 05:47 Triglycerides 195 mg/dL (2-149) H 02/19/21 05:45 Procalcitonin 18.94 ng/mL (<0.15) 02/16/21 17:09 Arterial Blood Glucose 117 mg/dL (65-95) H 03/01/21 03:29 Arterial Blood Ionized Calcium 4.6 mg/dL (4.6-5.3) 03/01/21 03:29 Urine Color Nehal (Yellow) 01/22/21 22:39 Urine Turbidity Cloudy (Clear) 01/22/21 22:39 Urine pH 5.0 (5.0-7.0) 01/22/21 22:39 Ur Specific [place] 1.017 (1.003-1.030) 01/22/21 22:39 Urine Protein 100 mg/dl mg/dL (Negative) 01/22/21 22:39 Urine Glucose (UA) Neg mg/dL (Negative) 01/22/21 22:39 Urine Ketones Neg mg/dL (Negative) 01/22/21 22:39 Urine Blood Mod (Negative) 01/22/21 22:39 Urine Nitrite Neg (Negative) 01/22/21 22:39 Urine Bilirubin Neg (Negative) 01/22/21 22:39 Urine Urobilinogen 2.0 mg/dL (<2.0) 01/22/21 22:39 Ur Leukocyte Esterase Mod (Negative) 01/22/21 22:39 Urine WBC (Auto) < 1.0 /HPF (0.0-6.0) 01/22/21 22:39 Urine RBC (Auto) < 1.0 /HPF (0.0-6.0) 01/22/21 22:39 U Epithel Cells (Auto) < 1.0 /HPF (0-13.0) 01/22/21 22:39 Urine Osmolality 416 Mosm/kg 01/30/21 12:15 Urine Total Volume 2300 ml 01/30/21 12:00 Urine Creatinine 53.0 mg/dL (0.1-20.0) H 01/30/21 12:00 Ur Creatinine 24 Hour 1.2 (0.8-2.8) 01/30/21 12:00 Urine Sodium 28 mmol/L 01/22/21 22:39 Nasal Screen MRSA (PCR) Negative (Negative) 02/02/21 13:20 Random Vancomycin 13.7 ug/mL (0-40.0) 02/07/21 10:40 Coronavirus (PCR) Positive (Negative) A 02/18/21 10:00 Hepatitis A IgM Ab Non-reactive (NonReactive) 02/03/21 Unknown Hep Bs Antigen Non-reactive (Negative) 02/03/21 Unknown Hep B Core IgM Ab Non-reactive (NonReactive) 02/03/21 Unknown Hepatitis C Antibody Non-reactive (NonReactive) 02/03/21 Unknown Blood Type B POSITIVE 02/17/21 07:45 Antibody Screen Negative 02/17/21 07:45 Crossmatch See Detail 02/17/21 07:45 Black/IV: Voiding Method Incontinent Active Medications - Current Medications Current Medications: Generic Name Dose Route Start Last Admin Trade Name Freq PRN Reason Stop Dose Admin Acetaminophen 650 mg 01/24/21 12:58 02/25/21 13:31 Acetaminophen 325 Mg/10.15 Ml Oral Liqd Unit Dose FEEDTUBE 650 mg Q6H PRN Administration Pain, Mild (1-3) Lipase/Protease/Amylase 1 each 01/26/21 14:25 Lipase 10,500/Protease 25,000/Amylase 43,750 (Units) Dr Cap FEEDTUBE PRN PRN For Clogged Feeding Tube Dextrose 50 ml 01/27/21 07:24 Dextrose 50% In Water (25gm) 50 Ml Syringe IV Q30MIN PRN Hypoglycemia Protocol Fentanyl 50 mcg 01/22/21 22:39 02/25/21 10:25 Fentanyl 100 Mcg/2 Ml Inj IV 50 mcg Q10MIN PRN Administration ANALGESIA Heparin Sodium (Porcine) 2,000 unit 02/11/21 09:38 02/21/21 21:25 Heparin 10,000 Units/10 Ml Vial IV 2,000 unit SAGRARIO PRN Administration hemodialysis Heparin Sodium (Porcine) 5,000 unit 02/19/21 14:00 03/02/21 13:53 Heparin 5,000 Unit/1 Ml Vial SUB-Q 5,000 unit Q8HR CECE Administration Fentanyl Citrate 2,000 mcg in 100 mls @ 6.124 mls/hr 01/22/21 23:00 03/02/21 13:50 Fentanyl Drip Premix IV 3 mcg/kg/hr TITR CECE 18.371 mls/hr Administration Protocol 1 MCG/KG/HR Propofol 1,000 mg in 100 mls @ 3.674 mls/hr 01/22/21 23:45 02/21/21 08:30 Diprivan 10 Mg/Ml IV 0 mcg/kg/min TITR CECE 0 mls/hr Titration Protocol 5 MCG/KG/MIN Norepinephrine 4 mg in 250 mls @ 7.5 mls/hr 01/28/21 14:00 02/22/21 18:27 Levophed Drip 4 Mg/Ns 250 Ml IV 0 mcg/min TITR CECE 0 mls/hr Titration Protocol 2 MCG/MIN Dexmedetomidine HCl 1,000 mcg/ 260 mls @ 6.368 mls/hr 01/30/21 20:00 03/02/21 14:49 Sodium Chloride IV 0.9 mcg/kg/hr TITRATE CECE 28.658 mls/hr Titration Protocol 0.2 MCG/KG/HR Sodium Chloride 100 mls @ 999 mls/hr 02/27/21 11:00 Nacl 0.9% IV SAGRARIO PRN Hypotension Lansoprazole 30 mg 02/18/21 10:00 03/02/21 09:26 Lansoprazole 30 Mg Solutab FEEDTUBE 30 mg QDAY CECE Administration Neomycin/Polymyxin/Bacitracin 1 applic 03/02/21 15:00 03/02/21 16:14 Neomy 3.5 Mg/Bacit 400 Units/Poly B 5000 Units/Gm Oint Packet TP 1 applic TID CECE Administration Senna/Docusate Sodium 1 tab 02/25/21 10:00 03/02/21 09:26 Sennosides/Docusate Sodium 8.6/50 Mg Tab PO 1 tab BID CECE Administration Simple Syrup 15 ml 01/26/21 14:25 02/21/21 21:24 Simple Syrup 15 Ml FEEDTUBE 15 ml PRN PRN Administration Hypoglycemia Simple Syrup 30 ml 01/26/21 14:25 Simple Syrup 15 Ml FEEDTUBE PRN PRN Hypoglycemia Sodium Bicarbonate 325 mg 01/26/21 14:25 Sodium Bicarbonate 325 Mg Tab FEEDTUBE PRN PRN For Clogged Feeding Tube Nutrition/Malnutrition Assess - Dietary Evaluation Nutrition/Malnutrition Findings: Nutrition Notes Start: 01/26/21 13:59 Freq: Status: Active Protocol: Document 02/26/21 12:19 CW (Rec: 02/26/21 12:45 CW [id number]) Nutrition Notes Initial or Follow up Reassessment Current Diagnosis Acute Kidney Injury,Diabetes, Sepsis,Hypertension, Respiratory Failure, Hyperlipidemia Other Pertinent Diagnosis on HD, COVID-19 (+), bilat pneu Current Diet TF - Nepro at 46 ml/hr Labs/Tests BUN 72 Cr 4.5 Pertinent Medications [place] Height 5 ft 8 in Weight 99 kg [place] Body Weight (kg) 70.00 BMI 33.2 Weight change and time frame Some wt change likely r/t to HD. Weight Status Obese Subjective/Other Information TF continue to run at goal and is moderately tolerated. Pt remains on mechanical vent. Burn Absent Trauma Absent GI Symptoms Constipation Difficulty In Swallowing Skin Integrity/Comment pressure ulcer to lips Current % PO Negligible Minimum of two criteria No Fluid Accumulation Moderate to Severe (severe) #2 Nutrition Diagnosis Increased nutrient needs ( specify in comment below) Comments: protein Diagnosis Progress(for reassessment Continues documentation) #1 Nutrition Diagnosis Inadequate oral intake Diagnosis Progress(for reassessment Continues documentation) Is patient on ventilator? Yes Is Patient Ambulatory and/or Out of Bed No REE-([place]-confined to bed) 2122.164 Kcal/Kg value to use for calculation 18 Approximate Energy Requirements Using 1782 kcal/Kg Calculation Used for Recommendations Kcal/kg Additional Notes Pro needs >1.2g/kg adjBW: > 115g/day for HD needs Fluid needs 500+ total output or per MD Nutrition Intervention Change Diet Order: Continue TF Nutrition Support: Nepro at 46 ml/hr with a free water flush of 200 ml q4h. Kcal 1,987 Protein (gm) 89 Fluid (mL) 803 Goal #1 TF tolerance Goal #2 TF to meet at least 75% energy and pro needs Anticipated Discharge Needs: unable to determine at this time Follow-Up By: 03/04/21 Additional Comments F/U for TF tolerance
[2021-03-02] MEDS: EPOETIN ALFA-EPBX 20,000 UNIT/1 ML VIAL IV PRN (17:53)
[2021-03-03] MEDS: fentaNYL DRIP Premix 2,000 MCG/100 ML BAG IV SCH ×3 (02:15→18:18)
[2021-03-03 04:32] LABS: ABG Base Excess 4.3 mmol/L (-2.0-3.0); ABG HCO3 31.7 mmol/L (20.0-26.0); ABG Methemoglobin 0.6 % (0.0-1.5); ABG Oxygen Saturation 96.4 % (95.0-99.0); ABG PCO2 69.7 mm Hg; ABG PH 7.276 pH Units (7.350-7.450); ABG PO2 85.8 mm Hg (80.0-90.0)
[2021-03-03] MEDS: HEPARIN 5,000 UNIT/1 ML VIAL SUB-Q SCH ×3 (07:14→22:37)
[2021-03-03 07:28] LABS: Hematocrit 21.8 % (35.5-45.6); Hemoglobin 6.8 gm/dl (11.8-15.2); Mean Corpuscular HGB Conc 31 % (32-34); Mean Corpuscular Volume 96 fl (84-94); Platelet Count 358 K/mm3 (140-440); Red Blood Count 2.26 M/mm3 (3.65-5.03); Red Cell Distribution Width 18.5 % (13.2-15.2)
[2021-03-03 07:37] LABS: INR 1.15 (0.87-1.13)
[2021-03-03 08:04] LABS: Calcium 8.5 mg/dL (8.4-10.2)
[2021-03-03] MEDS ORDERED: SODIUM CHLORIDE 0.9% 500 ML 500 ML IV NR (08:11)
--- NOTE | 2021-03-03 09:53 | Progress Note ---
Assessment and Plan 60 y/o male with ARDS secondary most likely to COVID 19 pneumonia. 03/03/21: Continue to wean FiO2 as tolerated. Would wean this first before weaning PEEP any further. Sedation only as needed but if placed back on continuous sedation, needs to have a holiday (break) every day. HD per renal. Transfusing 1 unit of PRBC's tomorrow. Unfortunately, mental status is going to be a large barrier for this patient. He likely has suffered some oxygen toxicity from prolonged time on high levels of oxygen (greater 60%) for several weeks. Will attempt to have a family meeting regarding further care. Patient is not funded, will need HD snf and likely will require trach for further weaning. Ultimately, if patient is able to leave the hospital, his only option would be to go home unless family could fund a facility on their own. Guarded prognosis remains. 02/23/21: Despite oxygen numbers looking better, now overall concern shifts somewhat towards mental state. Will continue to monitor for the next several days. However he has been on large amounts of oxygen therapy for a long time and could have some damage to his brain from this. Plan is to update the family tomorrow on current clinical state. His prognosis has been poor and now with mental state prognosis is worsening. HD per renal. Continue to wean FiO2 for s ats >88% 02/22/21: Overall clinical state continues to waxes and wanes. Back up to 80%. Will call family tomorrow to update. Had HD last night, will likely have HD again on Tuesday. Very very guarded prognosis. Will send Triglyceride level anyway given recent change. 02/21/21: Continue to wean FiO2 for sats >88%. Down to 70 now and tolerating. Diprovan is off, nursing working to wean others as well. Can hold on triglycerides now that diprovan is off. Guarded prognosis. 02/20/21: HD today, goal is 3 liters. Continue sedation, did have to increase Diprovan but this is ok. Will need to check levels soon. BM complete. Continue prophylactic anticoagulation. Guarded prognosis. 02/19/21: HD per renal, likely tomorrow. Continue sedation. Has not had a BM so will give full dose of mag citrate today. STarted prophylactic anticoagulation. Wean FiO2 as tolerated. Will call family tomorrow. 02/18/21: HD per renal. continue sedation to help with oxygenation. Overall prognosis remains very guarded to poor. IMS has been speaking with family so will defer to them. Currently patient is not a candidate for trach given his oxygen and peep requirements. 02/17/21: Fine with cutting back on HD as not really helped with oxygenation. Continue to wean as tolerated for sats >88% and PaO2 >55. Sedation to achieve negative rass scoring. very very guarded to poor prognosis. 02/16/21: HD now. Wean FiO2 for sats> 88%. Agree with stopping ativan and holding on starting diprovan to see if the patient truly needs it. pH holding off bicarb drip goal is >7.2. Very very guarded to poor prognosis. 02/13/21: HD again now. Replace electrolytes per renal. Continue abx therapy per ID. Will get RT to wean FiO2 as not done on yesterday. Will restart diprovan post HD and stop ativan. Check Levels (Triglycerides on Tue or Tuesday). Can stop bicarb drip however must make sure that ABG is checked daily to make sure that pH is good. Very very guarded prognosis. 02/12/21: HD again today. Had a 12 second run of VTACH today as well. Stable. K is low, checking mag levels. Will alert Renal so they can adjust bath as needed. Post HD will start to wean FiO2 again. Unable to prone as patient does not tolerate. Repeat blood cultures negative and first set only showing Coag Negative Staph. Prognosis still remains very very guarded to poor. Will consider restarting Diprovan tomorrow. Patient now intubated for 20 days now but not candidate for trach yet given elevated PEEP and FiO2 levels but did discuss on rounds. 02/11/21: Vascath placed today for HD. Orders already in. Wean FiO2 for sats >88%. Abx per ID. Repeat cultures so far negative. Given persistent fevers, will check upper ext dopplers. Prognosis still remains guarded. 02/10/21: Triglycerides improved but current sedation is adequate so will hold on stopping ativan to add propofol back. Awaiting Labs from this morning. Plan to replace HD catheter tomorrow morning as early as possible. Fever curve is trending down. Continue bicarb drip for now. Prognosis remains guarded. WIll speak with family tomorrow to update. 02/09/21: Repeat Triglycerides today. Follow up repeat blood cultures. Given continued fever will hold on replacing vascath today. If fever free the next 24 hours, can place in the morning or Tuesday morning. Will likely need blood with next HD session. Continue bicarb drip to help manage respiratory as well as metabolic acidosis. Wean FiO2 for sats >88% and PaO2 >55. Overall prognosis remains guarded to poor. 02/08/21: Picc out today. Will repeat culture if patient spikes again today. Plan to replace HD catheter either late tomorrow or Tuesday. Continue current level of sedation. Abx therapy per ID. Wean FiO2 as tolerated, doubt will be able to do much until we can resume HD. Guarded prognosis. Replaced potassium. Will need to check in the morning. Will repeat K later this afternoon. 02/07/21: Biggest issue now is that patient's numbers are better with HD but now with bacteremia, concern for line infection. ID is correct in requesting line holiday. Has a picc and an Right IJ Dialysis catheter with 3 ports. Currently getting HD today. Have not seen renal yet. Will pull right IJ line post HD and plan to replace it Tuesday or Tuesday. Continue bicarb drip for now and will keep picc as patient has been requiring levophed. If able to be weaned off levophed, will remove picc either tomorrow or Tuesday. Continue Ativan, Precedex and Fent drips, repeat Triglycerides on Tuesday. Very very guarded prognosis. Will remove Black today as well. 02/06/21: Will add bicarb drip at 125/hr. Giving 2 amps of NaHCO3 push now. Will repeat ABG this afternoon, may just ask for Art Line if possible. HD today per renal and I spoke with them about the bicarb drip. Long discussion with Sister, Significant and other and another family member on the phone on yesterday. I tried my best to explain the severity of the clinical state but not sure if they fully understood. The patient is very very ill and history suggests that his outcome will be poor (intubated with covid and renal failure on dialysis). This was expressed with the family. Will continue all supportive measures. Checking triglyceride levels today. 02/05/21: WIll increase PEEP to 16. Can increase pressors if needed for BP control during HD. Follow up cultures. If negative will scan legs and arms again for VTE. Repeat ABG at 1400 today. Will speak with sister and Girlfriend on phone today. 02/04/21: HD again today per renal notes. Likely will need daily HD. New fevers. Will draw blood and urine cultures if able to still make urine.. Repeat CXR. May need to check dopplers if all of those studies are negative. Wean FIO2 as tolerated. Unable to tolerate proning. Guarded to poor prognosis. 02/03/21: HD today per renal. Wean FiO2 as tolerated. No further proning as patient cannot tolerate it, however with volume removal, may consider in the future. Use pressors to keep MAPs 65 and greater for HD purporses so volume can be removed. (IJ was wide open (filled with blood)) with patient sitting up at 45 degrees. Guarded prognosis. 02/02/21: After renal speaks with family, will place vascath today. Agree with bicarb drip but will order some pushes now to help with pH. Overall prognosis is very very guarded to poor now that patient is COVID positive and requiring renal replacement therapy. Mortality is very high in these patients. Continue steroid therapy. Unable to tolerate proning. 01/30/21: Will plan for proning later today. Goal will be at least 12hrs but long is okay. Speaking with pharmacy to see if we can get paralytic for a longer period of time. Regardless will prone. Continue heavy sedation. BP stable. Continue steroids. Very very guarded prognosis. 01/29/21: will increase tidal volume and/or increase respiratory rate. Repeat ABG this afternoon. Continue paralytic and adequate sedation. Continue steroid and remdesivir, follow up any renal recs. Prognosis remains guarded. Wean Fio2 for sats >88% 01/28/21: Increased PEEP to 16. Will paralyze patient today and increase sedation. Ordering picc line for possible vasopressor therapy needs. Continue BID steroids. Renal function is slightly better today with fluids but could be making oxygenation worse. Not able to diurese. Still making urine. Continue Remdesivir. Watch for fever curve. If not improvement in the next 24 hours with paralyzing, will prone tomorrow morning. 01/27/21: Continue PEEP at 14. No weaning until FiO2 is at or below 40-45%. Continue anticoagulation. Getting Remdesivir now. Continue BID steroids. Renal has increased the fluids. Monitor urine output and renal function. Overall prognosis is very very guarded, especially if renal status worsens. 01/26/21: Increase PEEP to 14. Will add Precedex therapy. If patient does not respond to increases in PEEP may need to prone. Will place patient on lovenox and will feed patient. Remdesivir coming. Continue BID steroids. Prognosis is guarded. 01/25/21: Hold on proning today. Continue BID steroids. ABG this AM was adequate. Pending abg tomorrow, may increase PEEP if not able to wean FiO2 any further. Per charting Remdesivir to arrive tomorrow. Guarded prognosis. 01/24/21: Continue BID steroids. No abg done this am but able to wean FiO2. Will obtain ABG in the am. Hold on proning for right now. Renal following, would like to diurese but they are given fluids for deisi. Agree with ID asse ssment and note. Guarded prognosis. 1. Increase steroids to BID given size 2. Check with ID to see if he is a candidate for remdesivir or any other experiemental therapy 3. Hold on proning for right now 4. Renal consulted and giving IVF's currently Guarded prognosis. CCT 31 minutes. Subjective Date of service: 03/03/21 Principal diagnosis: DEISI Interval history: No change in mental status. Off sedation patient eyes only open, does not track does not follow commands. Does have periods where he becomes diaphoretic and tachycardic so he needs some sedation occassionally. Down to 55% and 10 of PEE. Sats in the 90's. Reviewed IR note, awaiting COVID test for perm cath placement. Remainder is negative. Objective Vital Signs - 12hr 03/02/21 03/02/21 03/02/21 22:01 22:15 22:31 Temperature Pulse Rate 96 H 95 H 95 H Pulse Rate [ From Monitor] Respiratory 17 17 32 H Rate Blood Pressure 119/66 119/66 119/66 O2 Sat by Pulse 95 95 95 Oximetry 03/02/21 03/02/21 03/02/21 22:45 23:01 23:15 Temperature Pulse Rate 96 H 96 H 99 H Pulse Rate [ From Monitor] Respiratory 17 15 34 H Rate Blood Pressure 119/66 119/66 119/66 O2 Sat by Pulse 95 94 94 Oximetry 03/02/21 03/02/21 03/02/21 23:31 23:34 23:40 Temperature 99.6 F Pulse Rate 99 H 98 H Pulse Rate [ From Monitor] Respiratory 15 Rate Blood Pressure 119/66 119/66 O2 Sat by Pulse 95 95 Oximetry 03/02/21 03/03/21 03/03/21 23:45 00:00 00:01 Temperature Pulse Rate 95 H 99 H 99 H Pulse Rate [ 99 H From Monitor] Respiratory 34 H 25 H 25 H Rate Blood Pressure 119/66 119/66 O2 Sat by Pulse 99 94 94 Oximetry 03/03/21 03/03/21 03/03/21 00:15 00:31 00:45 Temperature Pulse Rate 98 H 97 H 97 H Pulse Rate [ From Monitor] Respiratory 34 H 17 19 Rate Blood Pressure 119/66 119/66 119/66 O2 Sat by Pulse 94 93 93 Oximetry 03/03/21 03/03/21 03/03/21 01:01 01:15 01:31 Temperature Pulse Rate 96 H 97 H 98 H Pulse Rate [ From Monitor] Respiratory 19 18 19 Rate Blood Pressure 119/66 119/66 119/66 O2 Sat by Pulse 93 94 94 Oximetry 03/03/21 03/03/21 03/03/21 01:45 02:01 02:15 Temperature Pulse Rate 97 H 98 H 96 H Pulse Rate [ From Monitor] Respiratory 20 19 35 H Rate Blood Pressure 119/66 119/66 119/66 O2 Sat by Pulse 94 94 95 Oximetry 03/03/21 03/03/21 03/03/21 02:31 02:45 03:01 Temperature Pulse Rate 94 H 94 H 94 H Pulse Rate [ From Monitor] Respiratory 18 21 18 Rate Blood Pressure 119/66 119/66 119/66 O2 Sat by Pulse 95 95 94 Oximetry 03/03/21 03/03/21 03/03/21 03:15 03:31 03:38 Temperature 99.2 F Pulse Rate 95 H 93 H Pulse Rate [ From Monitor] Respiratory 19 18 Rate Blood Pressure 119/66 119/66 O2 Sat by Pulse 94 95 Oximetry 03/03/21 03/03/21 03/03/21 03:45 04:00 04:01 Temperature Pulse Rate 92 H 93 H 92 H Pulse Rate [ 95 H From Monitor] Respiratory 18 24 18 Rate Blood Pressure 119/66 119/66 O2 Sat by Pulse 95 96 96 Oximetry 03/03/21 03/03/21 03/03/21 04:15 04:25 04:31 Temperature Pulse Rate 93 H 92 H 88 Pulse Rate [ From Monitor] Respiratory 19 23 Rate Blood Pressure 119/66 119/66 119/66 O2 Sat by Pulse 95 95 97 Oximetry 03/03/21 03/03/21 03/03/21 04:45 05:01 05:15 Temperature Pulse Rate 100 H 99 H Pulse Rate [ From Monitor] Respiratory 11 L 39 H Rate Blood Pressure 119/66 119/66 108/59 O2 Sat by Pulse 92 96 Oximetry 03/03/21 03/03/21 03/03/21 05:31 05:45 06:01 Temperature Pulse Rate 97 H 97 H 94 H Pulse Rate [ From Monitor] Respiratory 39 H 37 H 37 H Rate Blood Pressure 108/59 108/59 108/59 O2 Sat by Pulse 96 96 96 Oximetry 03/03/21 03/03/21 03/03/21 06:15 06:31 06:45 Temperature Pulse Rate 92 H 94 H 95 H Pulse Rate [ From Monitor] Respiratory 38 H 35 H 21 Rate Blood Pressure 108/59 108/59 108/59 O2 Sat by Pulse 96 95 94 Oximetry 03/03/21 03/03/21 03/03/21 07:01 07:15 07:31 Temperature Pulse Rate 95 H 96 H 92 H Pulse Rate [ From Monitor] Respiratory 33 H 38 H 35 H Rate Blood Pressure 108/54 108/54 108/54 O2 Sat by Pulse 92 94 95 Oximetry 03/03/21 03/03/21 03/03/21 07:45 08:00 08:01 Temperature 98.6 F Pulse Rate 91 H 87 Pulse Rate [ From Monitor] Respiratory 38 H 33 H Rate Blood Pressure 108/54 108/54 O2 Sat by Pulse 94 96 Oximetry 03/03/21 03/03/21 03/03/21 08:15 08:31 08:45 Temperature Pulse Rate 86 90 94 H Pulse Rate [ From Monitor] Respiratory 38 H 22 18 Rate Blood Pressure 108/54 108/54 108/54 O2 Sat by Pulse 95 95 96 Oximetry Constitutional: other (sedated) Eyes: non-icteric ENT: other (orally intubated, critically ill) Neck: supple Effort: mildly labored (tachypneic) Ascultation: Bilateral: clear, other (coarse BS bilaterally) Percussion: Bilateral: not dull Cardiovascular: regular rate and rhythm (no mrg) Gastrointestinal: normoactive bowel sounds Integumentary: normal Extremities: no cyanosis, no edema, pink and warm Neurologic: unable to assess Psychiatric: other (unable to assess) CBC and BMP: 03/03/21 Unknown 03/03/21 Unknown ABG, PT/INR, D-dimer: ABG ABG pH 7.276 pH Units (7.350-7.450) L 03/03/21 03:50 POC ABG pCO2 52.3 mmHg (32.0-48.0) H 03/01/21 03:29 ABG pCO2 69.7 mm Hg 03/03/21 03:50 POC ABG pO2 115.1 mmHg (83-108) H 03/01/21 03:29 ABG pO2 85.8 mm Hg (80.0-90.0) 03/03/21 03:50 POC ABG HCO3 26.8 03/01/21 03:29 ABG O2 Saturation 96.4 % (95.0-99.0) 03/03/21 03:50 PT/INR, D-dimer PT 14.6 Sec. (12.2-14.9) 03/03/21 Unknown INR 1.15 (0.87-1.13) H 03/03/21 Unknown D-Dimer 6536.84 ng/mlDDU (0-234) H 02/25/21 09:03 Abnormal lab findings: Abnormal Labs 01/22/21 01/22/21 01/22/21 22:39 22:57 22:57 WBC RBC Hgb Hct MCV MCH MCHC RDW Plt Count Lymph % (Auto) 6.6 L Lymph # (Auto) 0.5 L Seg Neutrophils % 87.6 H Seg Neuts % (Manual) Lymphocytes % (Manual) Monocytes % (Manual) Nucleated RBC % Seg Neutrophils # Seg Neutrophils # Man Lymphocytes # (Manual) Monocytes # (Manual) Eosinophils # (Manual) INR D-Dimer ABG pH POC ABG pCO2 POC ABG pO2 ABG pO2 ABG HCO3 ABG O2 Saturation ABG Base Excess ABG Hemoglobin ABG Oxyhemoglobin ABG Sodium ABG Potassium ABG Chloride ABG Glucose Oxyhemoglobin Carboxyhemoglobin Sodium 129 L Potassium 3.4 L Chloride 90.4 L Carbon Dioxide BUN 34 H Creatinine 1.5 H Glucose 146 H POC Glucose Hemoglobin A1c Lactic Acid Calcium 7.8 L Phosphorus Magnesium Ferritin Total Bilirubin AST 75 H ALT 57 H Lactate Dehydrogenase C-Reactive Protein Albumin 2.9 L Triglycerides Arterial Blood Glucose Arterial Blood Ionized Calcium Urine Creatinine 301.2 H Coronavirus (PCR) Crossmatch 01/22/21 01/22/21 01/22/21 22:57 22:57 22:57 WBC RBC Hgb Hct MCV MCH MCHC RDW Plt Count Lymph % (Auto) Lymph # (Auto) Seg Neutrophils % Seg Neuts % (Manual) Lymphocytes % (Manual) Monocytes % (Manual) Nucleated RBC % Seg Neutrophils # Seg Neutrophils # Man Lymphocytes # (Manual) Monocytes # (Manual) Eosinophils # (Manual) INR D-Dimer 1173.89 H ABG pH POC ABG pCO2 POC ABG pO2 ABG pO2 ABG HCO3 ABG O2 Saturation ABG Base Excess ABG Hemoglobin ABG Oxyhemoglobin ABG Sodium ABG Potassium ABG Chloride ABG Glucose Oxyhemoglobin Carboxyhemoglobin Sodium Potassium Chloride Carbon Dioxide BUN Creatinine Glucose 149 H POC Glucose Hemoglobin A1c Lactic Acid 2.10 H* Calcium Phosphorus Magnesium Ferritin Total Bilirubin AST ALT Lactate Dehydrogenase 685 H C-Reactive Protein 30.40 H Albumin Triglycerides Arterial Blood Glucose Arterial Blood Ionized Calcium Urine Creatinine Coronavirus (PCR) Crossmatch 01/22/21 01/23/21 01/23/21 22:57 08:41 10:01 WBC RBC Hgb Hct MCV MCH MCHC RDW Plt Count Lymph % (Auto) Lymph # (Auto) Seg Neutrophils % Seg Neuts % (Manual) Lymphocytes % (Manual) Monocytes % (Manual) Nucleated RBC % Seg Neutrophils # Seg Neutrophils # Man Lymphocytes # (Manual) Monocytes # (Manual) Eosinophils # (Manual) INR D-Dimer ABG pH POC ABG pCO2 POC ABG pO2 ABG pO2 ABG HCO3 ABG O2 Saturation ABG Base Excess ABG Hemoglobin ABG Oxyhemoglobin ABG Sodium ABG Potassium ABG Chloride ABG Glucose Oxyhemoglobin Carboxyhemoglobin Sodium 131 L Potassium Chloride 88.7 L Carbon Dioxide 18 L BUN 36 H Creatinine 1.6 H Glucose 147 H POC Glucose Hemoglobin A1c Lactic Acid Calcium 7.5 L Phosphorus Magnesium Ferritin 1207.0 H Total Bilirubin AST ALT Lactate Dehydrogenase C-Reactive Protein Albumin Triglycerides Arterial Blood Glucose Arterial Blood Ionized Calcium Urine Creatinine Coronavirus (PCR) Positive A Crossmatch 01/23/21 01/23/21 01/24/21 20:49 Unknown 00:10 WBC RBC Hgb Hct MCV MCH MCHC RDW Plt Count Lymph % (Auto) Lymph # (Auto) Seg Neutrophils % Seg Neuts % (Manual) Lymphocytes % (Manual) Monocytes % (Manual) Nucleated RBC % Seg Neutrophils # Seg Neutrophils # Man Lymphocytes # (Manual) Monocytes # (Manual) Eosinophils # (Manual) INR D-Dimer ABG pH POC ABG pCO2 POC ABG pO2 ABG pO2 165.4 H ABG HCO3 ABG O2 Saturation ABG Base Excess -2.5 L ABG Hemoglobin ABG Oxyhemoglobin ABG Sodium ABG Potassium ABG Chloride ABG Glucose Oxyhemoglobin Carboxyhemoglobin Sodium 130 L Potassium Chloride 91.0 L Carbon Dioxide 20 L BUN 52 H Creatinine 3.8 H D Glucose 150 H POC Glucose 125 H Hemoglobin A1c Lactic Acid Calcium 8.0 L Phosphorus Magnesium Ferritin Total Bilirubin AST 42 H ALT Lactate Dehydrogenase C-Reactive Protein Albumin 2.4 L Triglycerides Arterial Blood Glucose Arterial Blood Ionized Calcium Urine Creatinine Coronavirus (PCR) Crossmatch 01/24/21 01/24/21 01/24/21 05:05 05:05 05:05 WBC 14.0 H RBC Hgb Hct MCV 95 H MCH 33 H MCHC RDW Plt Count Lymph % (Auto) Lymph # (Auto) Seg Neutrophils % Seg Neuts % (Manual) 91.0 H Lymphocytes % (Manual) 4.0 L Monocytes % (Manual) Nucleated RBC % Seg Neutrophils # Seg Neutrophils # Man 12.7 H Lymphocytes # (Manual) 0.6 L Monocytes # (Manual) Eosinophils # (Manual) INR D-Dimer 6159.48 H ABG pH POC ABG pCO2 POC ABG pO2 ABG pO2 ABG HCO3 ABG O2 Saturation ABG Base Excess ABG Hemoglobin ABG Oxyhemoglobin ABG Sodium ABG Potassium ABG Chloride ABG Glucose Oxyhemoglobin Carboxyhemoglobin Sodium Potassium Chloride Carbon Dioxide BUN Creatinine Glucose POC Glucose Hemoglobin A1c Lactic Acid Calcium Phosphorus Magnesium Ferritin 1178.0 H Total Bilirubin AST ALT Lactate Dehydrogenase C-Reactive Protein Albumin Triglycerides Arterial Blood Glucose Arterial Blood Ionized Calcium Urine Creatinine Coronavirus (PCR) Crossmatch 01/24/21 01/24/21 01/24/21 05:05 05:05 05:05 WBC RBC Hgb Hct MCV MCH MCHC RDW Plt Count Lymph % (Auto) Lymph # (Auto) Seg Neutrophils % Seg Neuts % (Manual) Lymphocytes % (Manual) Monocytes % (Manual) Nucleated RBC % Seg Neutrophils # Seg Neutrophils # Man Lymphocytes # (Manual) Monocytes # (Manual) Eosinophils # (Manual) INR D-Dimer ABG pH POC ABG pCO2 POC ABG pO2 ABG pO2 ABG HCO3 ABG O2 Saturation ABG Base Excess ABG Hemoglobin ABG Oxyhemoglobin ABG Sodium ABG Potassium ABG Chloride ABG Glucose Oxyhemoglobin Carboxyhemoglobin Sodium 132 L Potassium Chloride 93.1 L Carbon Dioxide 21 L BUN 57 H Creatinine 3.7 H Glucose 133 H POC Glucose Hemoglobin A1c Lactic Acid 2.20 H* Calcium 7.7 L Phosphorus Magnesium Ferritin Total Bilirubin AST ALT Lactate Dehydrogenase 658 H C-Reactive Protein 33.20 H Albumin 2.4 L Triglycerides Arterial Blood Glucose Arterial Blood Ionized Calcium Urine Creatinine Coronavirus (PCR) Crossmatch 01/24/21 01/24/21 01/24/21 05:34 06:00 17:35 WBC RBC Hgb Hct MCV MCH MCHC RDW Plt Count Lymph % (Auto) Lymph # (Auto) Seg Neutrophils % Seg Neuts % (Manual) Lymphocytes % (Manual) Monocytes % (Manual) Nucleated RBC % Seg Neutrophils # Seg Neutrophils # Man Lymphocytes # (Manual) Monocytes # (Manual) Eosinophils # (Manual) INR D-Dimer ABG pH POC ABG pCO2 POC ABG pO2 ABG pO2 ABG HCO3 ABG O2 Saturation ABG Base Excess ABG Hemoglobin ABG Oxyhemoglobin ABG Sodium ABG Potassium ABG Chloride ABG Glucose Oxyhemoglobin Carboxyhemoglobin Sodium Potassium Chloride Carbon Dioxide BUN Creatinine Glucose POC Glucose 136 H 137 H Hemoglobin A1c Lactic Acid Calcium Phosphorus Magnesium 2.80 H Ferritin Total Bilirubin AST ALT Lactate Dehydrogenase C-Reactive Protein Albumin Triglycerides Arterial Blood Glucose Arterial Blood Ionized Calcium Urine Creatinine Coronavirus (PCR) Crossmatch 01/25/21 01/25/21 01/25/21 04:15 05:40 05:40 WBC RBC Hgb Hct MCV 95 H MCH 33 H MCHC 35 H RDW Plt Count Lymph % (Auto) Lymph # (Auto) Seg Neutrophils % Seg Neuts % (Manual) 95.0 H Lymphocytes % (Manual) 3.0 L Monocytes % (Manual) Nucleated RBC % Seg Neutrophils # Seg Neutrophils # Man 7.8 H Lymphocytes # (Manual) 0.2 L Monocytes # (Manual) Eosinophils # (Manual) INR D-Dimer ABG pH POC ABG pCO2 POC ABG pO2 63.2 L ABG pO2 ABG HCO3 ABG O2 Saturation ABG Base Excess ABG Hemoglobin ABG Oxyhemoglobin 89.6 L ABG Sodium ABG Potassium ABG Chloride ABG Glucose 165 H Oxyhemoglobin Carboxyhemoglobin 0.3 L Sodium Potassium Chloride Carbon Dioxide BUN 67 H Creatinine 3.4 H Glucose 153 H POC Glucose Hemoglobin A1c Lactic Acid Calcium 7.5 L Phosphorus Magnesium Ferritin Total Bilirubin 1.40 H AST 62 H ALT Lactate Dehydrogenase C-Reactive Protein Albumin 2.6 L Triglycerides Arterial Blood Glucose 165 H Arterial Blood Ionized Calcium 4.3 L Urine Creatinine Coronavirus (PCR) Crossmatch 01/25/21 01/25/21 01/25/21 05:59 12:00 17:17 WBC RBC Hgb Hct MCV MCH MCHC RDW Plt Count Lymph % (Auto) Lymph # (Auto) Seg Neutrophils % Seg Neuts % (Manual) Lymphocytes % (Manual) Monocytes % (Manual) Nucleated RBC % Seg Neutrophils # Seg Neutrophils # Man Lymphocytes # (Manual) Monocytes # (Manual) Eosinophils # (Manual) INR D-Dimer ABG pH POC ABG pCO2 POC ABG pO2 ABG pO2 ABG HCO3 ABG O2 Saturation ABG Base Excess ABG Hemoglobin ABG Oxyhemoglobin ABG Sodium ABG Potassium ABG Chloride ABG Glucose Oxyhemoglobin Carboxyhemoglobin Sodium Potassium Chloride Carbon Dioxide BUN Creatinine Glucose POC Glucose 140 H 143 H 149 H Hemoglobin A1c Lactic Acid Calcium Phosphorus Magnesium Ferritin Total Bilirubin AST ALT Lactate Dehydrogenase C-Reactive Protein Albumin Triglycerides Arterial Blood Glucose Arterial Blood Ionized Calcium Urine Creatinine Coronavirus (PCR) Crossmatch 01/25/21 01/26/21 01/26/21 23:41 03:43 05:46 WBC RBC Hgb Hct MCV MCH MCHC RDW Plt Count Lymph % (Auto) Lymph # (Auto) Seg Neutrophils % Seg Neuts % (Manual) Lymphocytes % (Manual) Monocytes % (Manual) Nucleated RBC % Seg Neutrophils # Seg Neutrophils # Man Lymphocytes # (Manual) Monocytes # (Manual) Eosinophils # (Manual) INR D-Dimer ABG pH POC ABG pCO2 POC ABG pO2 70.0 L ABG pO2 ABG HCO3 ABG O2 Saturation ABG Base Excess ABG Hemoglobin ABG Oxyhemoglobin 91.9 L ABG Sodium ABG Potassium ABG Chloride 109.0 H ABG Glucose 165 H Oxyhemoglobin Carboxyhemoglobin Sodium Potassium Chloride Carbon Dioxide BUN Creatinine Glucose POC Glucose 132 H 161 H Hemoglobin A1c Lactic Acid Calcium Phosphorus Magnesium Ferritin Total Bilirubin AST ALT Lactate Dehydrogenase C-Reactive Protein Albumin Triglycerides Arterial Blood Glucose 165 H Arterial Blood Ionized Calcium 4.5 L Urine Creatinine Coronavirus (PCR) Crossmatch 01/26/21 01/26/21 01/26/21 05:47 05:47 05:47 WBC RBC Hgb Hct 35.3 L MCV 96 H MCH 33 H MCHC RDW Plt Count Lymph % (Auto) Lymph # (Auto) Seg Neutrophils % Seg Neuts % (Manual) 96.0 H Lymphocytes % (Manual) 2.0 L Monocytes % (Manual) Nucleated RBC % Seg Neutrophils # Seg Neutrophils # Man Lymphocytes # (Manual) 0.1 L Monocytes # (Manual) Eosinophils # (Manual) INR D-Dimer > 98220 H ABG pH POC ABG pCO2 POC ABG pO2 ABG pO2 ABG HCO3 ABG O2 Saturation ABG Base Excess ABG Hemoglobin ABG Oxyhemoglobin ABG Sodium ABG Potassium ABG Chloride ABG Glucose Oxyhemoglobin Carboxyhemoglobin Sodium Potassium Chloride Carbon Dioxide BUN 57 H Creatinine 2.2 H Glucose 185 H POC Glucose Hemoglobin A1c Lactic Acid Calcium 8.1 L Phosphorus Magnesium Ferritin Total Bilirubin AST ALT Lactate Dehydrogenase C-Reactive Protein Albumin Triglycerides Arterial Blood Glucose Arterial Blood Ionized Calcium Urine Creatinine Coronavirus (PCR) Crossmatch 01/26/21 01/26/21 01/26/21 05:47 05:47 05:47 WBC RBC Hgb Hct MCV MCH MCHC RDW Plt Count Lymph % (Auto) Lymph # (Auto) Seg Neutrophils % Seg Neuts % (Manual) Lymphocytes % (Manual) Monocytes % (Manual) Nucleated RBC % Seg Neutrophils # Seg Neutrophils # Man Lymphocytes # (Manual) Monocytes # (Manual) Eosinophils # (Manual) INR D-Dimer ABG pH POC ABG pCO2 POC ABG pO2 ABG pO2 ABG HCO3 ABG O2 Saturation ABG Base Excess ABG Hemoglobin ABG Oxyhemoglobin ABG Sodium ABG Potassium ABG Chloride ABG Glucose Oxyhemoglobin Carboxyhemoglobin Sodium Potassium Chloride 107.1 H Carbon Dioxide BUN 56 H Creatinine 2.2 H Glucose 188 H POC Glucose Hemoglobin A1c Lactic Acid Calcium 8.0 L Phosphorus Magnesium Ferritin 1178.0 H Total Bilirubin 1.50 H AST ALT Lactate Dehydrogenase 588 H C-Reactive Protein 40.10 H Albumin 2.2 L Triglycerides Arterial Blood Glucose Arterial Blood Ionized Calcium Urine Creatinine Coronavirus (PCR) Crossmatch 01/26/21 01/26/21 01/26/21 11:34 18:17 23:20 WBC RBC Hgb Hct MCV MCH MCHC RDW Plt Count Lymph % (Auto) Lymph # (Auto) Seg Neutrophils % Seg Neuts % (Manual) Lymphocytes % (Manual) Monocytes % (Manual) Nucleated RBC % Seg Neutrophils # Seg Neutrophils # Man Lymphocytes # (Manual) Monocytes # (Manual) Eosinophils # (Manual) INR D-Dimer ABG pH POC ABG pCO2 POC ABG pO2 ABG pO2 ABG HCO3 ABG O2 Saturation ABG Base Excess ABG Hemoglobin ABG Oxyhemoglobin ABG Sodium ABG Potassium ABG Chloride ABG Glucose Oxyhemoglobin Carboxyhemoglobin Sodium Potassium Chloride Carbon Dioxide BUN Creatinine Glucose POC Glucose 129 H 205 H 155 H Hemoglobin A1c Lactic Acid Calcium Phosphorus Magnesium Ferritin Total Bilirubin AST ALT Lactate Dehydrogenase C-Reactive Protein Albumin Triglycerides Arterial Blood Glucose Arterial Blood Ionized Calcium Urine Creatinine Coronavirus (PCR) Crossmatch 01/27/21 01/27/21 01/27/21 02:45 05:29 05:29 WBC RBC 3.58 L Hgb 11.7 L Hct 34.9 L MCV 97 H MCH 33 H MCHC RDW Plt Count Lymph % (Auto) Lymph # (Auto) Seg Neutrophils % Seg Neuts % (Manual) 88.0 H Lymphocytes % (Manual) 7.0 L Monocytes % (Manual) Nucleated RBC % Seg Neutrophils # Seg Neutrophils # Man Lymphocytes # (Manual) 0.5 L Monocytes # (Manual) Eosinophils # (Manual) INR D-Dimer ABG pH 7.319 L POC ABG pCO2 50.7 H POC ABG pO2 63.0 L ABG pO2 ABG HCO3 ABG O2 Saturation ABG Base Excess ABG Hemoglobin ABG Oxyhemoglobin ABG Sodium 145.2 H ABG Potassium 5.1 H ABG Chloride 114.0 H ABG Glucose 178 H Oxyhemoglobin Carboxyhemoglobin Sodium Potassium Chloride Carbon Dioxide BUN Creatinine Glucose POC Glucose Hemoglobin A1c Lactic Acid Calcium Phosphorus Magnesium 4.00 H Ferritin Total Bilirubin AST ALT Lactate Dehydrogenase C-Reactive Protein Albumin Triglycerides Arterial Blood Glucose 178 H Arterial Blood Ionized Calcium Urine Creatinine Coronavirus (PCR) Crossmatch 01/27/21 01/27/21 01/27/21 05:29 05:29 05:31 WBC RBC Hgb Hct MCV MCH MCHC RDW Plt Count Lymph % (Auto) Lymph # (Auto) Seg Neutrophils % Seg Neuts % (Manual) Lymphocytes % (Manual) Monocytes % (Manual) Nucleated RBC % Seg Neutrophils # Seg Neutrophils # Man Lymphocytes # (Manual) Monocytes # (Manual) Eosinophils # (Manual) INR D-Dimer ABG pH POC ABG pCO2 POC ABG pO2 ABG pO2 ABG HCO3 ABG O2 Saturation ABG Base Excess ABG Hemoglobin ABG Oxyhemoglobin ABG Sodium ABG Potassium ABG Chloride ABG Glucose Oxyhemoglobin Carboxyhemoglobin Sodium Potassium 5.2 H Chloride 109.6 H Carbon Dioxide BUN 67 H Creatinine 2.8 H Glucose 195 H POC Glucose 176 H Hemoglobin A1c Lactic Acid Calcium 7.9 L Phosphorus Magnesium Ferritin Total Bilirubin AST ALT Lactate Dehydrogenase C-Reactive Protein Albumin Triglycerides 160 H Arterial Blood Glucose Arterial Blood Ionized Calcium Urine Creatinine Coronavirus (PCR) Crossmatch 01/27/21 01/27/21 01/27/21 11:27 18:08 23:30 WBC RBC Hgb Hct MCV MCH MCHC RDW Plt Count Lymph % (Auto) Lymph # (Auto) Seg Neutrophils % Seg Neuts % (Manual) Lymphocytes % (Manual) Monocytes % (Manual) Nucleated RBC % Seg Neutrophils # Seg Neutrophils # Man Lymphocytes # (Manual) Monocytes # (Manual) Eosinophils # (Manual) INR D-Dimer ABG pH POC ABG pCO2 POC ABG pO2 ABG pO2 ABG HCO3 ABG O2 Saturation ABG Base Excess ABG Hemoglobin ABG Oxyhemoglobin ABG Sodium ABG Potassium ABG Chloride ABG Glucose Oxyhemoglobin Carboxyhemoglobin Sodium Potassium Chloride Carbon Dioxide BUN Creatinine Glucose POC Glucose 189 H 212 H 175 H Hemoglobin A1c Lactic Acid Calcium Phosphorus Magnesium Ferritin Total Bilirubin AST ALT Lactate Dehydrogenase C-Reactive Protein Albumin Triglycerides Arterial Blood Glucose Arterial Blood Ionized Calcium Urine Creatinine Coronavirus (PCR) Crossmatch 01/28/21 01/28/21 01/28/21 03:58 04:00 04:00 WBC RBC Hgb Hct MCV MCH MCHC RDW Plt Count Lymph % (Auto) Lymph # (Auto) Seg Neutrophils % Seg Neuts % (Manual) Lymphocytes % (Manual) Monocytes % (Manual) Nucleated RBC % Seg Neutrophils # Seg Neutrophils # Man Lymphocytes # (Manual) Monocytes # (Manual) Eosinophils # (Manual) INR D-Dimer > 25201 H ABG pH POC ABG pCO2 POC ABG pO2 52.9 L ABG pO2 ABG HCO3 ABG O2 Saturation ABG Base Excess ABG Hemoglobin ABG Oxyhemoglobin 84.1 L ABG Sodium 148.9 H ABG Potassium ABG Chloride 117.0 H ABG Glucose 194 H Oxyhemoglobin Carboxyhemoglobin Sodium Potassium Chloride Carbon Dioxide BUN Creatinine Glucose POC Glucose Hemoglobin A1c Lactic Acid Calcium Phosphorus Magnesium Ferritin Total Bilirubin AST ALT Lactate Dehydrogenase 679 H C-Reactive Protein 17.10 H Albumin Triglycerides Arterial Blood Glucose 194 H Arterial Blood Ionized Calcium Urine Creatinine Coronavirus (PCR) Crossmatch 01/28/21 01/28/21 01/28/21 04:00 05:00 06:00 WBC RBC 3.59 L Hgb 11.6 L Hct 34.8 L MCV 97 H MCH MCHC RDW Plt Count Lymph % (Auto) Lymph # (Auto) Seg Neutrophils % Seg Neuts % (Manual) 96.0 H Lymphocytes % (Manual) 3.0 L Monocytes % (Manual) Nucleated RBC % Seg Neutrophils # Seg Neutrophils # Man Lymphocytes # (Manual) 0.2 L Monocytes # (Manual) Eosinophils # (Manual) INR D-Dimer ABG pH POC ABG pCO2 POC ABG pO2 ABG pO2 ABG HCO3 ABG O2 Saturation ABG Base Excess ABG Hemoglobin ABG Oxyhemoglobin ABG Sodium ABG Potassium ABG Chloride ABG Glucose Oxyhemoglobin Carboxyhemoglobin Sodium Potassium Chloride Carbon Dioxide BUN Creatinine Glucose POC Glucose 159 H Hemoglobin A1c Lactic Acid Calcium Phosphorus Magnesium Ferritin 798.0 H Total Bilirubin AST ALT Lactate Dehydrogenase C-Reactive Protein Albumin Triglycerides Arterial Blood Glucose Arterial Blood Ionized Calcium Urine Creatinine Coronavirus (PCR) Crossmatch 01/28/21 01/28/21 01/28/21 06:00 06:00 08:12 WBC RBC Hgb Hct MCV MCH MCHC RDW Plt Count Lymph % (Auto) Lymph # (Auto) Seg Neutrophils % Seg Neuts % (Manual) Lymphocytes % (Manual) Monocytes % (Manual) Nucleated RBC % Seg Neutrophils # Seg Neutrophils # Man Lymphocytes # (Manual) Monocytes # (Manual) Eosinophils # (Manual) INR D-Dimer ABG pH POC ABG pCO2 POC ABG pO2 ABG pO2 ABG HCO3 ABG O2 Saturation ABG Base Excess ABG Hemoglobin ABG Oxyhemoglobin ABG Sodium ABG Potassium ABG Chloride ABG Glucose Oxyhemoglobin Carboxyhemoglobin Sodium Potassium Chloride 111.9 H Carbon Dioxide BUN 59 H Creatinine 2.2 H Glucose 189 H POC Glucose 181 H Hemoglobin A1c Lactic Acid Calcium 8.1 L Phosphorus Magnesium 3.20 H Ferritin Total Bilirubin AST ALT Lactate Dehydrogenase C-Reactive Protein Albumin Triglycerides Arterial Blood Glucose Arterial Blood Ionized Calcium Urine Creatinine Coronavirus (PCR) Crossmatch 01/28/21 01/28/21 01/28/21 12:03 16:43 23:51 WBC RBC Hgb Hct MCV MCH MCHC RDW Plt Count Lymph % (Auto) Lymph # (Auto) Seg Neutrophils % Seg Neuts % (Manual) Lymphocytes % (Manual) Monocytes % (Manual) Nucleated RBC % Seg Neutrophils # Seg Neutrophils # Man Lymphocytes # (Manual) Monocytes # (Manual) Eosinophils # (Manual) INR D-Dimer ABG pH POC ABG pCO2 POC ABG pO2 ABG pO2 ABG HCO3 ABG O2 Saturation ABG Base Excess ABG Hemoglobin ABG Oxyhemoglobin ABG Sodium ABG Potassium ABG Chloride ABG Glucose Oxyhemoglobin Carboxyhemoglobin Sodium Potassium Chloride Carbon Dioxide BUN Creatinine Glucose POC Glucose 164 H 198 H 196 H Hemoglobin A1c Lactic Acid Calcium Phosphorus Magnesium Ferritin Total Bilirubin AST ALT Lactate Dehydrogenase C-Reactive Protein Albumin Triglycerides Arterial Blood Glucose Arterial Blood Ionized Calcium Urine Creatinine Coronavirus (PCR) Crossmatch 01/29/21 01/29/21 01/29/21 05:00 05:23 06:00 WBC RBC Hgb Hct MCV MCH MCHC RDW Plt Count Lymph % (Auto) Lymph # (Auto) Seg Neutrophils % Seg Neuts % (Manual) Lymphocytes % (Manual) Monocytes % (Manual) Nucleated RBC % Seg Neutrophils # Seg Neutrophils # Man Lymphocytes # (Manual) Monocytes # (Manual) Eosinophils # (Manual) INR D-Dimer ABG pH 7.119 L POC ABG pCO2 87.1 H POC ABG pO2 ABG pO2 ABG HCO3 ABG O2 Saturation ABG Base Excess ABG Hemoglobin ABG Oxyhemoglobin ABG Sodium 152.5 H ABG Potassium 5.7 H ABG Chloride 120.0 H ABG Glucose 217 H Oxyhemoglobin Carboxyhemoglobin Sodium 151 H Potassium 5.9 H D Chloride 117.8 H Carbon Dioxide BUN 54 H Creatinine 2.2 H Glucose 208 H POC Glucose 180 H Hemoglobin A1c Lactic Acid Calcium 7.9 L Phosphorus Magnesium Ferritin Total Bilirubin AST ALT Lactate Dehydrogenase C-Reactive Protein Albumin Triglycerides Arterial Blood Glucose 217 H Arterial Blood Ionized Calcium Urine Creatinine Coronavirus (PCR) Crossmatch 01/29/21 01/29/21 01/29/21 12:29 17:28 18:05 WBC RBC Hgb Hct MCV MCH MCHC RDW Plt Count Lymph % (Auto) Lymph # (Auto) Seg Neutrophils % Seg Neuts % (Manual) Lymphocytes % (Manual) Monocytes % (Manual) Nucleated RBC % Seg Neutrophils # Seg Neutrophils # Man Lymphocytes # (Manual) Monocytes # (Manual) Eosinophils # (Manual) INR D-Dimer ABG pH POC ABG pCO2 POC ABG pO2 ABG pO2 ABG HCO3 ABG O2 Saturation ABG Base Excess ABG Hemoglobin ABG Oxyhemoglobin ABG Sodium ABG Potassium ABG Chloride ABG Glucose Oxyhemoglobin Carboxyhemoglobin Sodium 151 H Potassium 5.5 H Chloride 118.2 H Carbon Dioxide BUN 52 H Creatinine 2.2 H Glucose 224 H POC Glucose 181 H 203 H Hemoglobin A1c Lactic Acid Calcium 8.0 L Phosphorus Magnesium Ferritin Total Bilirubin AST ALT Lactate Dehydrogenase C-Reactive Protein Albumin Triglycerides Arterial Blood Glucose Arterial Blood Ionized Calcium Urine Creatinine Coronavirus (PCR) Crossmatch 01/29/21 01/29/21 01/29/21 18:13 23:34 Unknown WBC RBC Hgb Hct MCV 101 H MCH MCHC RDW 15.7 H Plt Count Lymph % (Auto) Lymph # (Auto) Seg Neutrophils % Seg Neuts % (Manual) 95.0 H Lymphocytes % (Manual) 3.0 L Monocytes % (Manual) Nucleated RBC % Seg Neutrophils # Seg Neutrophils # Man 8.0 H Lymphocytes # (Manual) 0.3 L Monocytes # (Manual) Eosinophils # (Manual) INR D-Dimer ABG pH 7.223 L POC ABG pCO2 64.8 H POC ABG pO2 63.6 L ABG pO2 ABG HCO3 ABG O2 Saturation ABG Base Excess ABG Hemoglobin ABG Oxyhemoglobin 89.4 L ABG Sodium 152.9 H ABG Potassium 5.3 H ABG Chloride 121.0 H ABG Glucose 227 H Oxyhemoglobin Carboxyhemoglobin Sodium Potassium Chloride Carbon Dioxide BUN Creatinine Glucose POC Glucose 198 H Hemoglobin A1c Lactic Acid Calcium Phosphorus Magnesium Ferritin Total Bilirubin AST ALT Lactate Dehydrogenase C-Reactive Protein Albumin Triglycerides Arterial Blood Glucose 227 H Arterial Blood Ionized Calcium Urine Creatinine Coronavirus (PCR) Crossmatch 01/30/21 01/30/21 01/30/21 04:00 04:00 04:00 WBC RBC Hgb Hct MCV MCH MCHC RDW Plt Count Lymph % (Auto) Lymph # (Auto) Seg Neutrophils % Seg Neuts % (Manual) Lymphocytes % (Manual) Monocytes % (Manual) Nucleated RBC % Seg Neutrophils # Seg Neutrophils # Man Lymphocytes # (Manual) Monocytes # (Manual) Eosinophils # (Manual) INR D-Dimer > 47431 H ABG pH POC ABG pCO2 POC ABG pO2 ABG pO2 ABG HCO3 ABG O2 Saturation ABG Base Excess ABG Hemoglobin ABG Oxyhemoglobin ABG Sodium ABG Potassium ABG Chloride ABG Glucose Oxyhemoglobin Carboxyhemoglobin Sodium Potassium Chloride Carbon Dioxide BUN Creatinine Glucose 234 H POC Glucose Hemoglobin A1c Lactic Acid Calcium Phosphorus Magnesium Ferritin 763.9 H Total Bilirubin AST ALT Lactate Dehydrogenase 424 H C-Reactive Protein 23.90 H Albumin Triglycerides Arterial Blood Glucose Arterial Blood Ionized Calcium Urine Creatinine Coronavirus (PCR) Crossmatch 01/30/21 01/30/21 01/30/21 04:24 05:00 05:16 WBC RBC 3.57 L Hgb 11.3 L Hct 35.4 L MCV 99 H MCH MCHC RDW 15.6 H Plt Count Lymph % (Auto) Lymph # (Auto) Seg Neutrophils % Seg Neuts % (Manual) 97.0 H Lymphocytes % (Manual) 1.0 L Monocytes % (Manual) Nucleated RBC % Seg Neutrophils # Seg Neutrophils # Man 8.6 H Lymphocytes # (Manual) 0.1 L Monocytes # (Manual) Eosinophils # (Manual) INR D-Dimer ABG pH 7.235 L POC ABG pCO2 69.7 H POC ABG pO2 61.0 L ABG pO2 ABG HCO3 ABG O2 Saturation ABG Base Excess ABG Hemoglobin ABG Oxyhemoglobin 89 L ABG Sodium 154.2 H ABG Potassium 5.4 H ABG Chloride 121.0 H ABG Glucose 247 H Oxyhemoglobin Carboxyhemoglobin Sodium Potassium Chloride Carbon Dioxide BUN Creatinine Glucose POC Glucose 238 H Hemoglobin A1c Lactic Acid Calcium Phosphorus Magnesium Ferritin Total Bilirubin AST ALT Lactate Dehydrogenase C-Reactive Protein Albumin Triglycerides Arterial Blood Glucose 247 H Arterial Blood Ionized Calcium Urine Creatinine Coronavirus (PCR) Crossmatch 01/30/21 01/30/21 01/30/21 06:00 11:28 12:00 WBC RBC Hgb Hct MCV MCH MCHC RDW Plt Count Lymph % (Auto) Lymph # (Auto) Seg Neutrophils % Seg Neuts % (Manual) Lymphocytes % (Manual) Monocytes % (Manual) Nucleated RBC % Seg Neutrophils # Seg Neutrophils # Man Lymphocytes # (Manual) Monocytes # (Manual) Eosinophils # (Manual) INR D-Dimer ABG pH POC ABG pCO2 POC ABG pO2 ABG pO2 ABG HCO3 ABG O2 Saturation ABG Base Excess ABG Hemoglobin ABG Oxyhemoglobin ABG Sodium ABG Potassium ABG Chloride ABG Glucose Oxyhemoglobin Carboxyhemoglobin Sodium 152 H Potassium 5.3 H Chloride 120.5 H Carbon Dioxide BUN 50 H Creatinine 2.3 H Glucose 239 H POC Glucose 153 H Hemoglobin A1c Lactic Acid Calcium 8.2 L Phosphorus Magnesium 2.60 H Ferritin Total Bilirubin AST ALT Lactate Dehydrogenase C-Reactive Protein Albumin Triglycerides 293 H Arterial Blood Glucose Arterial Blood Ionized Calcium Urine Creatinine 53.0 H Coronavirus (PCR) Crossmatch 01/30/21 01/30/21 01/31/21 18:49 23:06 04:00 WBC RBC Hgb Hct MCV MCH MCHC RDW Plt Count Lymph % (Auto) Lymph # (Auto) Seg Neutrophils % Seg Neuts % (Manual) Lymphocytes % (Manual) Monocytes % (Manual) Nucleated RBC % Seg Neutrophils # Seg Neutrophils # Man Lymphocytes # (Manual) Monocytes # (Manual) Eosinophils # (Manual) INR D-Dimer ABG pH POC ABG pCO2 POC ABG pO2 ABG pO2 ABG HCO3 ABG O2 Saturation ABG Base Excess ABG Hemoglobin ABG Oxyhemoglobin ABG Sodium ABG Potassium ABG Chloride ABG Glucose Oxyhemoglobin Carboxyhemoglobin Sodium 156 H Potassium 5.9 H Chloride 122.6 H Carbon Dioxide BUN 61 H Creatinine 3.2 H Glucose 205 H POC Glucose 220 H 192 H Hemoglobin A1c Lactic Acid Calcium 8.0 L Phosphorus Magnesium Ferritin Total Bilirubin AST ALT Lactate Dehydrogenase C-Reactive Protein Albumin Triglycerides Arterial Blood Glucose Arterial Blood Ionized Calcium Urine Creatinine Coronavirus (PCR) Crossmatch 01/31/21 01/31/21 01/31/21 04:40 05:17 11:33 WBC RBC Hgb Hct MCV MCH MCHC RDW Plt Count Lymph % (Auto) Lymph # (Auto) Seg Neutrophils % Seg Neuts % (Manual) Lymphocytes % (Manual) Monocytes % (Manual) Nucleated RBC % Seg Neutrophils # Seg Neutrophils # Man Lymphocytes # (Manual) Monocytes # (Manual) Eosinophils # (Manual) INR D-Dimer ABG pH 7.161 L* POC ABG pCO2 POC ABG pO2 ABG pO2 142.2 H ABG HCO3 28.3 H ABG O2 Saturation ABG Base Excess -3.2 L ABG Hemoglobin ABG Oxyhemoglobin ABG Sodium ABG Potassium ABG Chloride ABG Glucose Oxyhemoglobin Carboxyhemoglobin Sodium Potassium Chloride Carbon Dioxide BUN Creatinine Glucose POC Glucose 200 H 167 H Hemoglobin A1c Lactic Acid Calcium Phosphorus Magnesium Ferritin Total Bilirubin AST ALT Lactate Dehydrogenase C-Reactive Protein Albumin Triglycerides Arterial Blood Glucose Arterial Blood Ionized Calcium Urine Creatinine Coronavirus (PCR) Crossmatch 01/31/21 01/31/21 01/31/21 14:00 17:10 23:24 WBC RBC Hgb Hct MCV MCH MCHC RDW Plt Count Lymph % (Auto) Lymph # (Auto) Seg Neutrophils % Seg Neuts % (Manual) Lymphocytes % (Manual) Monocytes % (Manual) Nucleated RBC % Seg Neutrophils # Seg Neutrophils # Man Lymphocytes # (Manual) Monocytes # (Manual) Eosinophils # (Manual) INR D-Dimer ABG pH 7.205 L POC ABG pCO2 POC ABG pO2 ABG pO2 90.9 H ABG HCO3 26.5 H ABG O2 Saturation ABG Base Excess -2.7 L ABG Hemoglobin 12.3 L ABG Oxyhemoglobin ABG Sodium ABG Potassium ABG Chloride ABG Glucose Oxyhemoglobin 93.9 L Carboxyhemoglobin Sodium Potassium Chloride Carbon Dioxide BUN Creatinine Glucose POC Glucose 190 H 203 H Hemoglobin A1c Lactic Acid Calcium Phosphorus Magnesium Ferritin Total Bilirubin AST ALT Lactate Dehydrogenase C-Reactive Protein Albumin Triglycerides Arterial Blood Glucose Arterial Blood Ionized Calcium Urine Creatinine Coronavirus (PCR) Crossmatch 02/01/21 02/01/21 02/01/21 05:15 06:22 10:20 WBC RBC Hgb Hct MCV MCH MCHC RDW Plt Count Lymph % (Auto) Lymph # (Auto) Seg Neutrophils % Seg Neuts % (Manual) Lymphocytes % (Manual) Monocytes % (Manual) Nucleated RBC % Seg Neutrophils # Seg Neutrophils # Man Lymphocytes # (Manual) Monocytes # (Manual) Eosinophils # (Manual) INR D-Dimer ABG pH 6.920 L* 7.116 L* POC ABG pCO2 POC ABG pO2 ABG pO2 102.9 H 113.1 H ABG HCO3 28.2 H ABG O2 Saturation 92.9 L ABG Base Excess -6.9 L -5.8 L ABG Hemoglobin 11.6 L 9.5 L ABG Oxyhemoglobin ABG Sodium ABG Potassium ABG Chloride ABG Glucose Oxyhemoglobin 90.5 L 94.6 L Carboxyhemoglobin Sodium Potassium Chloride Carbon Dioxide BUN Creatinine Glucose POC Glucose 221 H Hemoglobin A1c Lactic Acid Calcium Phosphorus Magnesium Ferritin Total Bilirubin AST ALT Lactate Dehydrogenase C-Reactive Protein Albumin Triglycerides Arterial Blood Glucose Arterial Blood Ionized Calcium Urine Creatinine Coronavirus (PCR) Crossmatch 02/01/21 02/01/21 02/01/21 11:12 12:35 16:00 WBC RBC Hgb Hct MCV MCH MCHC RDW Plt Count Lymph % (Auto) Lymph # (Auto) Seg Neutrophils % Seg Neuts % (Manual) Lymphocytes % (Manual) Monocytes % (Manual) Nucleated RBC % Seg Neutrophils # Seg Neutrophils # Man Lymphocytes # (Manual) Monocytes # (Manual) Eosinophils # (Manual) INR D-Dimer ABG pH 7.155 L* POC ABG pCO2 POC ABG pO2 ABG pO2 94.6 H ABG HCO3 ABG O2 Saturation ABG Base Excess -6.5 L ABG Hemoglobin 13.1 L ABG Oxyhemoglobin ABG Sodium ABG Potassium ABG Chloride ABG Glucose Oxyhemoglobin 93.7 L Carboxyhemoglobin Sodium 155 H Potassium 5.1 H Chloride 120.5 H Carbon Dioxide BUN 90 H Creatinine 6.1 H D Glucose 238 H POC Glucose 207 H Hemoglobin A1c Lactic Acid Calcium 7.4 L Phosphorus Magnesium Ferritin Total Bilirubin AST ALT Lactate Dehydrogenase C-Reactive Protein Albumin Triglycerides Arterial Blood Glucose Arterial Blood Ionized Calcium Urine Creatinine Coronavirus (PCR) Crossmatch 02/01/21 02/01/21 02/02/21 17:10 23:47 04:04 WBC RBC 3.02 L Hgb 9.8 L Hct 30.7 L MCV 102 H MCH MCHC RDW 15.6 H Plt Count Lymph % (Auto) 4.2 L Lymph # (Auto) 0.3 L Seg Neutrophils % Seg Neuts % (Manual) Lymphocytes % (Manual) Monocytes % (Manual) Nucleated RBC % Seg Neutrophils # Seg Neutrophils # Man Lymphocytes # (Manual) Monocytes # (Manual) Eosinophils # (Manual) INR D-Dimer ABG pH POC ABG pCO2 POC ABG pO2 ABG pO2 ABG HCO3 ABG O2 Saturation ABG Base Excess ABG Hemoglobin ABG Oxyhemoglobin ABG Sodium ABG Potassium ABG Chloride ABG Glucose Oxyhemoglobin Carboxyhemoglobin Sodium Potassium Chloride Carbon Dioxide BUN Creatinine Glucose POC Glucose 238 H 235 H Hemoglobin A1c Lactic Acid Calcium Phosphorus Magnesium Ferritin Total Bilirubin AST ALT Lactate Dehydrogenase C-Reactive Protein Albumin Triglycerides Arterial Blood Glucose Arterial Blood Ionized Calcium Urine Creatinine Coronavirus (PCR) Crossmatch 02/02/21 02/02/21 02/02/21 05:18 05:35 11:28 WBC RBC Hgb Hct MCV MCH MCHC RDW Plt Count Lymph % (Auto) Lymph # (Auto) Seg Neutrophils % Seg Neuts % (Manual) Lymphocytes % (Manual) Monocytes % (Manual) Nucleated RBC % Seg Neutrophils # Seg Neutrophils # Man Lymphocytes # (Manual) Monocytes # (Manual) Eosinophils # (Manual) INR D-Dimer ABG pH 7.195 L* POC ABG pCO2 POC ABG pO2 ABG pO2 72.5 L ABG HCO3 ABG O2 Saturation 91.2 L ABG Base Excess -5.3 L ABG Hemoglobin 6.0 L ABG Oxyhemoglobin ABG Sodium ABG Potassium ABG Chloride ABG Glucose Oxyhemoglobin 89.1 L Carboxyhemoglobin Sodium Potassium Chloride 110.4 H Carbon Dioxide BUN 92 H Creatinine Glucose POC Glucose 239 H Hemoglobin A1c Lactic Acid Calcium Phosphorus Magnesium Ferritin Total Bilirubin AST ALT Lactate Dehydrogenase C-Reactive Protein Albumin Triglycerides Arterial Blood Glucose Arterial Blood Ionized Calcium Urine Creatinine Coronavirus (PCR) Crossmatch 02/02/21 02/02/21 02/02/21 11:53 16:00 18:04 WBC RBC Hgb Hct MCV MCH MCHC RDW Plt Count Lymph % (Auto) Lymph # (Auto) Seg Neutrophils % Seg Neuts % (Manual) Lymphocytes % (Manual) Monocytes % (Manual) Nucleated RBC % Seg Neutrophils # Seg Neutrophils # Man Lymphocytes # (Manual) Monocytes # (Manual) Eosinophils # (Manual) INR D-Dimer ABG pH POC ABG pCO2 POC ABG pO2 ABG pO2 ABG HCO3 ABG O2 Saturation ABG Base Excess ABG Hemoglobin ABG Oxyhemoglobin ABG Sodium ABG Potassium ABG Chloride ABG Glucose Oxyhemoglobin Carboxyhemoglobin Sodium Potassium Chloride Carbon Dioxide BUN Creatinine Glucose POC Glucose 248 H 199 H Hemoglobin A1c 6.3 H Lactic Acid Calcium Phosphorus Magnesium Ferritin Total Bilirubin AST ALT Lactate Dehydrogenase C-Reactive Protein Albumin Triglycerides Arterial Blood Glucose Arterial Blood Ionized Calcium Urine Creatinine Coronavirus (PCR) Crossmatch 02/02/21 02/03/21 02/03/21 23:31 03:12 04:10 WBC RBC 3.06 L Hgb 9.7 L Hct 30.4 L MCV 99 H MCH MCHC RDW 15.3 H Plt Count Lymph % (Auto) 6.1 L Lymph # (Auto) 0.5 L Seg Neutrophils % 86.1 H Seg Neuts % (Manual) Lymphocytes % (Manual) Monocytes % (Manual) Nucleated RBC % Seg Neutrophils # Seg Neutrophils # Man Lymphocytes # (Manual) Monocytes # (Manual) Eosinophils # (Manual) INR D-Dimer ABG pH 7.199 L POC ABG pCO2 48.3 H POC ABG pO2 68.3 L ABG pO2 ABG HCO3 ABG O2 Saturation ABG Base Excess ABG Hemoglobin 10.2 L ABG Oxyhemoglobin 89.2 L ABG Sodium 155.0 H ABG Potassium 4.6 H ABG Chloride 121.0 H ABG Glucose 166 H Oxyhemoglobin Carboxyhemoglobin 0.3 L Sodium Potassium Chloride Carbon Dioxide BUN Creatinine Glucose POC Glucose 200 H Hemoglobin A1c Lactic Acid Calcium Phosphorus Magnesium Ferritin Total Bilirubin AST ALT Lactate Dehydrogenase C-Reactive Protein Albumin Triglycerides Arterial Blood Glucose 166 H Arterial Blood Ionized Calcium 4.1 L Urine Creatinine Coronavirus (PCR) Crossmatch 02/03/21 02/03/21 02/03/21 04:10 05:34 11:51 WBC RBC Hgb Hct MCV MCH MCHC RDW Plt Count Lymph % (Auto) Lymph # (Auto) Seg Neutrophils % Seg Neuts % (Manual) Lymphocytes % (Manual) Monocytes % (Manual) Nucleated RBC % Seg Neutrophils # Seg Neutrophils # Man Lymphocytes # (Manual) Monocytes # (Manual) Eosinophils # (Manual) INR D-Dimer ABG pH POC ABG pCO2 POC ABG pO2 ABG pO2 ABG HCO3 ABG O2 Saturation ABG Base Excess ABG Hemoglobin ABG Oxyhemoglobin ABG Sodium ABG Potassium ABG Chloride ABG Glucose Oxyhemoglobin Carboxyhemoglobin Sodium 154 H D Potassium Chloride 116.7 H Carbon Dioxide 20 L BUN 130 H Creatinine 9.2 H D Glucose 160 H POC Glucose 130 H 154 H Hemoglobin A1c Lactic Acid Calcium 6.7 L Phosphorus 8.60 H Magnesium Ferritin Total Bilirubin AST ALT Lactate Dehydrogenase C-Reactive Protein Albumin Triglycerides Arterial Blood Glucose Arterial Blood Ionized Calcium Urine Creatinine Coronavirus (PCR) Crossmatch 02/03/21 02/03/21 02/04/21 16:49 23:22 03:48 WBC RBC Hgb Hct MCV MCH MCHC RDW Plt Count Lymph % (Auto) Lymph # (Auto) Seg Neutrophils % Seg Neuts % (Manual) Lymphocytes % (Manual) Monocytes % (Manual) Nucleated RBC % Seg Neutrophils # Seg Neutrophils # Man Lymphocytes # (Manual) Monocytes # (Manual) Eosinophils # (Manual) INR D-Dimer ABG pH 7.201 L POC ABG pCO2 54.5 H POC ABG pO2 74.0 L ABG pO2 ABG HCO3 ABG O2 Saturation ABG Base Excess ABG Hemoglobin 9.7 L ABG Oxyhemoglobin 91.1 L ABG Sodium 146.2 H ABG Potassium ABG Chloride 114.0 H ABG Glucose 155 H Oxyhemoglobin Carboxyhemoglobin Sodium Potassium Chloride Carbon Dioxide BUN Creatinine Glucose POC Glucose 164 H 152 H Hemoglobin A1c Lactic Acid Calcium Phosphorus Magnesium Ferritin Total Bilirubin AST ALT Lactate Dehydrogenase C-Reactive Protein Albumin Triglycerides Arterial Blood Glucose 155 H Arterial Blood Ionized Calcium 3.9 L Urine Creatinine Coronavirus (PCR) Crossmatch 02/04/21 02/04/21 02/04/21 04:45 04:45 04:45 WBC RBC 2.75 L Hgb 9.1 L Hct 26.9 L MCV 98 H MCH 33 H MCHC RDW Plt Count Lymph % (Auto) 6.8 L Lymph # (Auto) 0.5 L Seg Neutrophils % 87.2 H Seg Neuts % (Manual) Lymphocytes % (Manual) Monocytes % (Manual) Nucleated RBC % Seg Neutrophils # Seg Neutrophils # Man Lymphocytes # (Manual) Monocytes # (Manual) Eosinophils # (Manual) INR D-Dimer ABG pH POC ABG pCO2 POC ABG pO2 ABG pO2 ABG HCO3 ABG O2 Saturation ABG Base Excess ABG Hemoglobin ABG Oxyhemoglobin ABG Sodium ABG Potassium ABG Chloride ABG Glucose Oxyhemoglobin Carboxyhemoglobin Sodium 149 H Potassium Chloride 111.5 H Carbon Dioxide BUN 99 H Creatinine 8.5 H Glucose 139 H POC Glucose Hemoglobin A1c Lactic Acid Calcium 6.8 L Phosphorus 8.40 H Magnesium Ferritin Total Bilirubin AST ALT Lactate Dehydrogenase C-Reactive Protein Albumin Triglycerides Arterial Blood Glucose Arterial Blood Ionized Calcium Urine Creatinine Coronavirus (PCR) Crossmatch 02/04/21 02/04/21 02/04/21 06:05 11:44 18:00 WBC RBC Hgb Hct MCV MCH MCHC RDW Plt Count Lymph % (Auto) Lymph # (Auto) Seg Neutrophils % Seg Neuts % (Manual) Lymphocytes % (Manual) Monocytes % (Manual) Nucleated RBC % Seg Neutrophils # Seg Neutrophils # Man Lymphocytes # (Manual) Monocytes # (Manual) Eosinophils # (Manual) INR D-Dimer ABG pH POC ABG pCO2 POC ABG pO2 ABG pO2 ABG HCO3 ABG O2 Saturation ABG Base Excess ABG Hemoglobin ABG Oxyhemoglobin ABG Sodium ABG Potassium ABG Chloride ABG Glucose Oxyhemoglobin Carboxyhemoglobin Sodium Potassium Chloride Carbon Dioxide BUN Creatinine Glucose POC Glucose 138 H 129 H 163 H Hemoglobin A1c Lactic Acid Calcium Phosphorus Magnesium Ferritin Total Bilirubin AST ALT Lactate Dehydrogenase C-Reactive Protein Albumin Triglycerides Arterial Blood Glucose Arterial Blood Ionized Calcium Urine Creatinine Coronavirus (PCR) Crossmatch 02/04/21 02/05/21 02/05/21 23:48 01:50 01:50 WBC RBC 2.43 L Hgb 8.3 L Hct 23.6 L MCV 97 H MCH 34 H MCHC 35 H RDW Plt Count 137 L Lymph % (Auto) 8.4 L Lymph # (Auto) 0.6 L Seg Neutrophils % 86.1 H Seg Neuts % (Manual) Lymphocytes % (Manual) Monocytes % (Manual) Nucleated RBC % Seg Neutrophils # Seg Neutrophils # Man Lymphocytes # (Manual) Monocytes # (Manual) Eosinophils # (Manual) INR D-Dimer ABG pH POC ABG pCO2 POC ABG pO2 ABG pO2 ABG HCO3 ABG O2 Saturation ABG Base Excess ABG Hemoglobin ABG Oxyhemoglobin ABG Sodium ABG Potassium ABG Chloride ABG Glucose Oxyhemoglobin Carboxyhemoglobin Sodium Potassium Chloride Carbon Dioxide BUN Creatinine Glucose POC Glucose 157 H Hemoglobin A1c Lactic Acid Calcium Phosphorus 5.60 H D Magnesium Ferritin Total Bilirubin AST ALT Lactate Dehydrogenase C-Reactive Protein Albumin Triglycerides Arterial Blood Glucose Arterial Blood Ionized Calcium Urine Creatinine Coronavirus (PCR) Crossmatch 02/05/21 02/05/21 02/05/21 03:44 05:27 09:15 WBC RBC Hgb Hct MCV MCH MCHC RDW Plt Count Lymph % (Auto) Lymph # (Auto) Seg Neutrophils % Seg Neuts % (Manual) Lymphocytes % (Manual) Monocytes % (Manual) Nucleated RBC % Seg Neutrophils # Seg Neutrophils # Man Lymphocytes # (Manual) Monocytes # (Manual) Eosinophils # (Manual) INR D-Dimer ABG pH 7.202 L POC ABG pCO2 63.7 H POC ABG pO2 69.0 L ABG pO2 ABG HCO3 ABG O2 Saturation ABG Base Excess ABG Hemoglobin 9.4 L ABG Oxyhemoglobin ABG Sodium ABG Potassium ABG Chloride 108.0 H ABG Glucose 186 H Oxyhemoglobin Carboxyhemoglobin Sodium Potassium Chloride Carbon Dioxide BUN 78 H Creatinine 8.0 H Glucose 163 H POC Glucose 157 H Hemoglobin A1c Lactic Acid Calcium 6.3 L Phosphorus Magnesium Ferritin Total Bilirubin AST ALT Lactate Dehydrogenase C-Reactive Protein Albumin Triglycerides Arterial Blood Glucose 186 H Arterial Blood Ionized Calcium 3.9 L Urine Creatinine Coronavirus (PCR) Crossmatch 02/05/21 02/05/21 02/05/21 11:47 17:39 23:40 WBC RBC Hgb Hct MCV MCH MCHC RDW Plt Count Lymph % (Auto) Lymph # (Auto) Seg Neutrophils % Seg Neuts % (Manual) Lymphocytes % (Manual) Monocytes % (Manual) Nucleated RBC % Seg Neutrophils # Seg Neutrophils # Man Lymphocytes # (Manual) Monocytes # (Manual) Eosinophils # (Manual) INR D-Dimer ABG pH 7.273 L POC ABG pCO2 62.1 H POC ABG pO2 72.0 L ABG pO2 ABG HCO3 ABG O2 Saturation ABG Base Excess ABG Hemoglobin 9.1 L ABG Oxyhemoglobin 91.3 L ABG Sodium ABG Potassium 3.1 L ABG Chloride ABG Glucose 125 H Oxyhemoglobin Carboxyhemoglobin Sodium Potassium Chloride Carbon Dioxide BUN Creatinine Glucose POC Glucose 126 H 126 H Hemoglobin A1c Lactic Acid Calcium Phosphorus Magnesium Ferritin Total Bilirubin AST ALT Lactate Dehydrogenase C-Reactive Protein Albumin Triglycerides Arterial Blood Glucose 125 H Arterial Blood Ionized Calcium 4.0 L Urine Creatinine Coronavirus (PCR) Crossmatch 02/06/21 02/06/21 02/06/21 04:30 04:57 09:45 WBC RBC Hgb Hct MCV MCH MCHC RDW Plt Count Lymph % (Auto) Lymph # (Auto) Seg Neutrophils % Seg Neuts % (Manual) Lymphocytes % (Manual) Monocytes % (Manual) Nucleated RBC % Seg Neutrophils # Seg Neutrophils # Man Lymphocytes # (Manual) Monocytes # (Manual) Eosinophils # (Manual) INR D-Dimer ABG pH 7.159 L 7.138 L* POC ABG pCO2 76.3 H POC ABG pO2 66.9 L ABG pO2 ABG HCO3 ABG O2 Saturation 93.4 L ABG Base Excess -6.0 L ABG Hemoglobin 11.2 L 11.7 L ABG Oxyhemoglobin 88.2 L ABG Sodium ABG Potassium ABG Chloride ABG Glucose 134 H Oxyhemoglobin 91.2 L Carboxyhemoglobin Sodium Potassium Chloride Carbon Dioxide BUN Creatinine Glucose POC Glucose 124 H Hemoglobin A1c Lactic Acid Calcium Phosphorus Magnesium Ferritin Total Bilirubin AST ALT Lactate Dehydrogenase C-Reactive Protein Albumin Triglycerides Arterial Blood Glucose 134 H Arterial Blood Ionized Calcium 3.9 L Urine Creatinine Coronavirus (PCR) Crossmatch 02/06/21 02/06/21 02/06/21 11:11 17:00 17:00 WBC RBC Hgb Hct MCV MCH MCHC RDW Plt Count Lymph % (Auto) Lymph # (Auto) Seg Neutrophils % Seg Neuts % (Manual) Lymphocytes % (Manual) Monocytes % (Manual) Nucleated RBC % Seg Neutrophils # Seg Neutrophils # Man Lymphocytes # (Manual) Monocytes # (Manual) Eosinophils # (Manual) INR D-Dimer ABG pH 7.158 L* POC ABG pCO2 POC ABG pO2 ABG pO2 109.8 H ABG HCO3 28.7 H ABG O2 Saturation ABG Base Excess -2.5 L ABG Hemoglobin ABG Oxyhemoglobin ABG Sodium ABG Potassium ABG Chloride ABG Glucose Oxyhemoglobin 94.5 L Carboxyhemoglobin Sodium Potassium Chloride Carbon Dioxide BUN Creatinine Glucose POC Glucose 120 H Hemoglobin A1c Lactic Acid Calcium Phosphorus Magnesium Ferritin Total Bilirubin AST ALT Lactate Dehydrogenase C-Reactive Protein Albumin Triglycerides 503 H Arterial Blood Glucose Arterial Blood Ionized Calcium Urine Creatinine Coronavirus (PCR) Crossmatch 02/06/21 02/06/21 02/06/21 17:28 20:16 Unknown WBC 13.5 H RBC 2.98 L Hgb 9.3 L Hct 28.6 L MCV 96 H MCH MCHC RDW Plt Count Lymph % (Auto) Lymph # (Auto) Seg Neutrophils % Seg Neuts % (Manual) 87.0 H Lymphocytes % (Manual) 7.0 L Monocytes % (Manual) Nucleated RBC % Seg Neutrophils # Seg Neutrophils # Man 11.7 H Lymphocytes # (Manual) 0.9 L Monocytes # (Manual) Eosinophils # (Manual) 0.5 H INR D-Dimer ABG pH POC ABG pCO2 POC ABG pO2 ABG pO2 ABG HCO3 ABG O2 Saturation ABG Base Excess ABG Hemoglobin ABG Oxyhemoglobin ABG Sodium ABG Potassium ABG Chloride ABG Glucose Oxyhemoglobin Carboxyhemoglobin Sodium Potassium Chloride Carbon Dioxide BUN Creatinine Glucose POC Glucose 147 H 164 H Hemoglobin A1c Lactic Acid Calcium Phosphorus Magnesium Ferritin Total Bilirubin AST ALT Lactate Dehydrogenase C-Reactive Protein Albumin Triglycerides Arterial Blood Glucose Arterial Blood Ionized Calcium Urine Creatinine Coronavirus (PCR) Crossmatch 02/06/21 02/07/21 02/07/21 Unknown 04:00 WBC 12.0 H RBC 2.61 L Hgb 8.2 L Hct 24.5 L MCV MCH MCHC RDW Plt Count Lymph % (Auto) 8.9 L Lymph # (Auto) 1.1 L Seg Neutrophils % 86.3 H Seg Neuts % (Manual) Lymphocytes % (Manual) Monocytes % (Manual) Nucleated RBC % Seg Neutrophils # 10.3 H Seg Neutrophils # Man Lymphocytes # (Manual) Monocytes # (Manual) Eosinophils # (Manual) INR D-Dimer ABG pH POC ABG pCO2 POC ABG pO2 ABG pO2 ABG HCO3 ABG O2 Saturation ABG Base Excess ABG Hemoglobin ABG Oxyhemoglobin ABG Sodium ABG Potassium ABG Chloride ABG Glucose Oxyhemoglobin Carboxyhemoglobin Sodium Potassium 3.5 L Chloride Carbon Dioxide BUN 58 H Creatinine 6.6 H Glucose 107 H POC Glucose 173 H Hemoglobin A1c Lactic Acid Calcium 6.7 L Phosphorus 8.00 H D Magnesium Ferritin Total Bilirubin AST ALT Lactate Dehydrogenase C-Reactive Protein Albumin Triglycerides Arterial Blood Glucose Arterial Blood Ionized Calcium Urine Creatinine Coronavirus (PCR) Crossmatch 02/07/21 02/07/21 02/07/21 04:00 04:45 11:49 WBC RBC Hgb Hct MCV MCH MCHC RDW Plt Count Lymph % (Auto) Lymph # (Auto) Seg Neutrophils % Seg Neuts % (Manual) Lymphocytes % (Manual) Monocytes % (Manual) Nucleated RBC % Seg Neutrophils # Seg Neutrophils # Man Lymphocytes # (Manual) Monocytes # (Manual) Eosinophils # (Manual) INR D-Dimer ABG pH 7.287 L POC ABG pCO2 64.8 H POC ABG pO2 74.0 L ABG pO2 ABG HCO3 ABG O2 Saturation ABG Base Excess ABG Hemoglobin 9.1 L ABG Oxyhemoglobin 92.0 L ABG Sodium ABG Potassium 2.8 L ABG Chloride ABG Glucose 226 H Oxyhemoglobin Carboxyhemoglobin Sodium Potassium Chloride Carbon Dioxide BUN Creatinine Glucose POC Glucose 170 H Hemoglobin A1c Lactic Acid Calcium Phosphorus 5.50 H D Magnesium Ferritin Total Bilirubin AST ALT Lactate Dehydrogenase C-Reactive Protein Albumin Triglycerides Arterial Blood Glucose 226 H Arterial Blood Ionized Calcium 3.7 L Urine Creatinine Coronavirus (PCR) Crossmatch 02/07/21 02/07/21 02/07/21 13:48 17:45 23:02 WBC RBC Hgb Hct MCV MCH MCHC RDW Plt Count Lymph % (Auto) Lymph # (Auto) Seg Neutrophils % Seg Neuts % (Manual) Lymphocytes % (Manual) Monocytes % (Manual) Nucleated RBC % Seg Neutrophils # Seg Neutrophils # Man Lymphocytes # (Manual) Monocytes # (Manual) Eosinophils # (Manual) INR D-Dimer ABG pH POC ABG pCO2 POC ABG pO2 ABG pO2 ABG HCO3 ABG O2 Saturation ABG Base Excess ABG Hemoglobin ABG Oxyhemoglobin ABG Sodium ABG Potassium ABG Chloride ABG Glucose Oxyhemoglobin Carboxyhemoglobin Sodium 136 L Potassium 2.6 L* D Chloride 95.1 L Carbon Dioxide 33 H D BUN 30 H Creatinine 3.6 H Glucose 184 H POC Glucose 172 H 172 H Hemoglobin A1c Lactic Acid Calcium 6.9 L Phosphorus Magnesium Ferritin Total Bilirubin AST ALT Lactate Dehydrogenase C-Reactive Protein Albumin Triglycerides Arterial Blood Glucose Arterial Blood Ionized Calcium Urine Creatinine Coronavirus (PCR) Crossmatch 02/08/21 02/08/21 02/08/21 05:22 06:00 06:00 WBC RBC 2.21 L Hgb 7.2 L Hct 21.0 L MCV 95 H MCH MCHC RDW Plt Count Lymph % (Auto) Lymph # (Auto) Seg Neutrophils % Seg Neuts % (Manual) 87.0 H Lymphocytes % (Manual) 4.0 L Monocytes % (Manual) Nucleated RBC % Seg Neutrophils # Seg Neutrophils # Man 8.5 H Lymphocytes # (Manual) 0.4 L Monocytes # (Manual) Eosinophils # (Manual) INR D-Dimer ABG pH POC ABG pCO2 POC ABG pO2 ABG pO2 ABG HCO3 ABG O2 Saturation ABG Base Excess ABG Hemoglobin ABG Oxyhemoglobin ABG Sodium ABG Potassium ABG Chloride ABG Glucose Oxyhemoglobin Carboxyhemoglobin Sodium 136 L Potassium 2.4 L* Chloride 93.1 L Carbon Dioxide 36 H BUN 43 H Creatinine 5.4 H Glucose 167 H POC Glucose 162 H Hemoglobin A1c Lactic Acid Calcium 6.3 L Phosphorus Magnesium Ferritin Total Bilirubin AST ALT Lactate Dehydrogenase C-Reactive Protein Albumin Triglycerides Arterial Blood Glucose Arterial Blood Ionized Calcium Urine Creatinine Coronavirus (PCR) Crossmatch 02/08/21 02/08/21 02/08/21 11:44 17:53 18:56 WBC RBC Hgb Hct MCV MCH MCHC RDW Plt Count Lymph % (Auto) Lymph # (Auto) Seg Neutrophils % Seg Neuts % (Manual) Lymphocytes % (Manual) Monocytes % (Manual) Nucleated RBC % Seg Neutrophils # Seg Neutrophils # Man Lymphocytes # (Manual) Monocytes # (Manual) Eosinophils # (Manual) INR D-Dimer ABG pH POC ABG pCO2 POC ABG pO2 ABG pO2 ABG HCO3 ABG O2 Saturation ABG Base Excess ABG Hemoglobin ABG Oxyhemoglobin ABG Sodium ABG Potassium ABG Chloride ABG Glucose Oxyhemoglobin Carboxyhemoglobin Sodium Potassium 2.9 L* D Chloride Carbon Dioxide BUN Creatinine Glucose POC Glucose 164 H 154 H Hemoglobin A1c Lactic Acid Calcium Phosphorus Magnesium Ferritin Total Bilirubin AST ALT Lactate Dehydrogenase C-Reactive Protein Albumin Triglycerides Arterial Blood Glucose Arterial Blood Ionized Calcium Urine Creatinine Coronavirus (PCR) Crossmatch 02/08/21 02/08/21 02/09/21 23:24 23:58 03:21 WBC RBC Hgb Hct MCV MCH MCHC RDW Plt Count Lymph % (Auto) Lymph # (Auto) Seg Neutrophils % Seg Neuts % (Manual) Lymphocytes % (Manual) Monocytes % (Manual) Nucleated RBC % Seg Neutrophils # Seg Neutrophils # Man Lymphocytes # (Manual) Monocytes # (Manual) Eosinophils # (Manual) INR D-Dimer ABG pH 7.319 L POC ABG pCO2 63.3 H 68.3 H POC ABG pO2 71.2 L 76.5 L ABG pO2 ABG HCO3 ABG O2 Saturation ABG Base Excess ABG Hemoglobin 8.2 L 7.0 L ABG Oxyhemoglobin 91.8 L 92.2 L ABG Sodium 134.6 L 133.0 L ABG Potassium 2.3 L 3.1 L ABG Chloride 96.0 L 95.0 L ABG Glucose 184 H 154 H Oxyhemoglobin Carboxyhemoglobin Sodium Potassium Chloride Carbon Dioxide BUN Creatinine Glucose POC Glucose 152 H Hemoglobin A1c Lactic Acid Calcium Phosphorus Magnesium Ferritin Total Bilirubin AST ALT Lactate Dehydrogenase C-Reactive Protein Albumin Triglycerides Arterial Blood Glucose 184 H 154 H Arterial Blood Ionized Calcium 3.6 L 3.5 L Urine Creatinine Coronavirus (PCR) Crossmatch 02/09/21 02/09/21 02/09/21 05:10 05:10 06:04 WBC RBC 2.14 L Hgb 7.0 L Hct 20.5 L MCV 96 H MCH 33 H MCHC RDW Plt Count Lymph % (Auto) Lymph # (Auto) Seg Neutrophils % Seg Neuts % (Manual) 82.0 H Lymphocytes % (Manual) 9.0 L Monocytes % (Manual) Nucleated RBC % 1.0 H Seg Neutrophils # Seg Neutrophils # Man 8.9 H Lymphocytes # (Manual) 1.0 L Monocytes # (Manual) Eosinophils # (Manual) INR D-Dimer ABG pH POC ABG pCO2 POC ABG pO2 ABG pO2 ABG HCO3 ABG O2 Saturation ABG Base Excess ABG Hemoglobin ABG Oxyhemoglobin ABG Sodium ABG Potassium ABG Chloride ABG Glucose Oxyhemoglobin Carboxyhemoglobin Sodium 135 L Potassium 3.2 L Chloride 91.0 L Carbon Dioxide 32 H BUN 54 H Creatinine 6.6 H Glucose 163 H POC Glucose 149 H Hemoglobin A1c Lactic Acid Calcium 6.2 L Phosphorus Magnesium Ferritin Total Bilirubin AST ALT Lactate Dehydrogenase C-Reactive Protein Albumin Triglycerides Arterial Blood Glucose Arterial Blood Ionized Calcium Urine Creatinine Coronavirus (PCR) Crossmatch 02/09/21 02/09/21 02/09/21 12:02 13:32 13:40 WBC RBC Hgb Hct MCV MCH MCHC RDW Plt Count Lymph % (Auto) Lymph # (Auto) Seg Neutrophils % Seg Neuts % (Manual) Lymphocytes % (Manual) Monocytes % (Manual) Nucleated RBC % Seg Neutrophils # Seg Neutrophils # Man Lymphocytes # (Manual) Monocytes # (Manual) Eosinophils # (Manual) INR D-Dimer ABG pH POC ABG pCO2 POC ABG pO2 ABG pO2 ABG HCO3 ABG O2 Saturation ABG Base Excess ABG Hemoglobin ABG Oxyhemoglobin ABG Sodium ABG Potassium ABG Chloride ABG Glucose Oxyhemoglobin Carboxyhemoglobin Sodium Potassium Chloride Carbon Dioxide BUN Creatinine Glucose POC Glucose 147 H Hemoglobin A1c Lactic Acid Calcium Phosphorus Magnesium Ferritin Total Bilirubin AST ALT Lactate Dehydrogenase C-Reactive Protein Albumin Triglycerides 250 H Arterial Blood Glucose Arterial Blood Ionized Calcium Urine Creatinine Coronavirus (PCR) Crossmatch See Detail 02/09/21 02/09/21 02/10/21 18:06 23:42 04:00 WBC RBC Hgb Hct MCV MCH MCHC RDW Plt Count Lymph % (Auto) Lymph # (Auto) Seg Neutrophils % Seg Neuts % (Manual) Lymphocytes % (Manual) Monocytes % (Manual) Nucleated RBC % Seg Neutrophils # Seg Neutrophils # Man Lymphocytes # (Manual) Monocytes # (Manual) Eosinophils # (Manual) INR D-Dimer ABG pH POC ABG pCO2 65.8 H POC ABG pO2 68.0 L ABG pO2 ABG HCO3 ABG O2 Saturation ABG Base Excess ABG Hemoglobin 8.3 L ABG Oxyhemoglobin ABG Sodium 132.4 L ABG Potassium 2.9 L ABG Chloride 92.0 L ABG Glucose 174 H Oxyhemoglobin Carboxyhemoglobin Sodium Potassium Chloride Carbon Dioxide BUN Creatinine Glucose POC Glucose 152 H 147 H Hemoglobin A1c Lactic Acid Calcium Phosphorus Magnesium Ferritin Total Bilirubin AST ALT Lactate Dehydrogenase C-Reactive Protein Albumin Triglycerides Arterial Blood Glucose 174 H Arterial Blood Ionized Calcium 3.4 L Urine Creatinine Coronavirus (PCR) Crossmatch 02/10/21 02/10/21 02/10/21 05:32 11:29 14:08 WBC 12.5 H RBC 2.14 L Hgb 6.6 L Hct 20.2 L MCV MCH MCHC RDW Plt Count Lymph % (Auto) Lymph # (Auto) Seg Neutrophils % Seg Neuts % (Manual) Lymphocytes % (Manual) Monocytes % (Manual) Nucleated RBC % Seg Neutrophils # Seg Neutrophils # Man Lymphocytes # (Manual) Monocytes # (Manual) Eosinophils # (Manual) INR D-Dimer ABG pH POC ABG pCO2 POC ABG pO2 ABG pO2 ABG HCO3 ABG O2 Saturation ABG Base Excess ABG Hemoglobin ABG Oxyhemoglobin ABG Sodium ABG Potassium ABG Chloride ABG Glucose Oxyhemoglobin Carboxyhemoglobin Sodium Potassium Chloride Carbon Dioxide BUN Creatinine Glucose POC Glucose 167 H 147 H Hemoglobin A1c Lactic Acid Calcium Phosphorus Magnesium Ferritin Total Bilirubin AST ALT Lactate Dehydrogenase C-Reactive Protein Albumin Triglycerides Arterial Blood Glucose Arterial Blood Ionized Calcium Urine Creatinine Coronavirus (PCR) Crossmatch 02/10/21 02/10/21 02/10/21 14:08 18:11 22:32 WBC RBC Hgb 6.4 L Hct 19.1 L* MCV MCH MCHC RDW Plt Count Lymph % (Auto) Lymph # (Auto) Seg Neutrophils % Seg Neuts % (Manual) Lymphocytes % (Manual) Monocytes % (Manual) Nucleated RBC % Seg Neutrophils # Seg Neutrophils # Man Lymphocytes # (Manual) Monocytes # (Manual) Eosinophils # (Manual) INR D-Dimer ABG pH POC ABG pCO2 POC ABG pO2 ABG pO2 ABG HCO3 ABG O2 Saturation ABG Base Excess ABG Hemoglobin ABG Oxyhemoglobin ABG Sodium ABG Potassium ABG Chloride ABG Glucose Oxyhemoglobin Carboxyhemoglobin Sodium 136 L Potassium 2.9 L* Chloride 90.2 L Carbon Dioxide 33 H BUN 42 H Creatinine 7.5 H Glucose 155 H POC Glucose 173 H Hemoglobin A1c Lactic Acid Calcium 6.1 L Phosphorus Magnesium Ferritin Total Bilirubin AST ALT Lactate Dehydrogenase C-Reactive Protein Albumin Triglycerides Arterial Blood Glucose Arterial Blood Ionized Calcium Urine Creatinine Coronavirus (PCR) Crossmatch 02/11/21 02/11/21 02/11/21 00:28 04:05 04:30 WBC RBC Hgb Hct MCV MCH MCHC RDW Plt Count Lymph % (Auto) Lymph # (Auto) Seg Neutrophils % Seg Neuts % (Manual) Lymphocytes % (Manual) Monocytes % (Manual) Nucleated RBC % Seg Neutrophils # Seg Neutrophils # Man Lymphocytes # (Manual) Monocytes # (Manual) Eosinophils # (Manual) INR D-Dimer ABG pH 7.307 L POC ABG pCO2 72.2 H POC ABG pO2 72.3 L ABG pO2 ABG HCO3 ABG O2 Saturation ABG Base Excess ABG Hemoglobin 8.2 L ABG Oxyhemoglobin ABG Sodium 132.3 L ABG Potassium 3.2 L ABG Chloride 91.0 L ABG Glucose 197 H Oxyhemoglobin Carboxyhemoglobin Sodium 135 L Potassium 3.3 L Chloride 87.1 L Carbon Dioxide 36 H BUN 71 H Creatinine 7.9 H Glucose 263 H POC Glucose 192 H Hemoglobin A1c Lactic Acid Calcium 6.2 L Phosphorus Magnesium Ferritin Total Bilirubin AST ALT Lactate Dehydrogenase C-Reactive Protein Albumin Triglycerides Arterial Blood Glucose 197 H Arterial Blood Ionized Calcium 3.3 L Urine Creatinine Coronavirus (PCR) Crossmatch 02/11/21 02/11/21 02/11/21 04:30 05:47 08:27 WBC RBC 2.22 L Hgb 7.2 L Hct 21.0 L MCV MCH MCHC RDW Plt Count Lymph % (Auto) 8.7 L Lymph # (Auto) 0.9 L Seg Neutrophils % 85.5 H Seg Neuts % (Manual) Lymphocytes % (Manual) Monocytes % (Manual) Nucleated RBC % Seg Neutrophils # 9.2 H Seg Neutrophils # Man Lymphocytes # (Manual) Monocytes # (Manual) Eosinophils # (Manual) INR 1.17 H D-Dimer 1930.92 H ABG pH POC ABG pCO2 POC ABG pO2 ABG pO2 ABG HCO3 ABG O2 Saturation ABG Base Excess ABG Hemoglobin ABG Oxyhemoglobin ABG Sodium ABG Potassium ABG Chloride ABG Glucose Oxyhemoglobin Carboxyhemoglobin Sodium Potassium Chloride Carbon Dioxide BUN Creatinine Glucose POC Glucose 189 H Hemoglobin A1c Lactic Acid Calcium Phosphorus Magnesium Ferritin Total Bilirubin AST ALT Lactate Dehydrogenase C-Reactive Protein Albumin Triglycerides Arterial Blood Glucose Arterial Blood Ionized Calcium Urine Creatinine Coronavirus (PCR) Crossmatch 02/11/21 02/11/21 02/11/21 09:00 09:00 13:18 WBC RBC Hgb Hct MCV MCH MCHC RDW Plt Count Lymph % (Auto) Lymph # (Auto) Seg Neutrophils % Seg Neuts % (Manual) Lymphocytes % (Manual) Monocytes % (Manual) Nucleated RBC % Seg Neutrophils # Seg Neutrophils # Man Lymphocytes # (Manual) Monocytes # (Manual) Eosinophils # (Manual) INR D-Dimer ABG pH POC ABG pCO2 POC ABG pO2 ABG pO2 ABG HCO3 ABG O2 Saturation ABG Base Excess ABG Hemoglobin ABG Oxyhemoglobin ABG Sodium ABG Potassium ABG Chloride ABG Glucose Oxyhemoglobin Carboxyhemoglobin Sodium Potassium Chloride Carbon Dioxide BUN Creatinine Glucose 126 H POC Glucose 160 H Hemoglobin A1c Lactic Acid Calcium Phosphorus Magnesium Ferritin 1253.0 H Total Bilirubin AST ALT Lactate Dehydrogenase 649 H C-Reactive Protein 12.60 H Albumin Triglycerides Arterial Blood Glucose Arterial Blood Ionized Calcium Urine Creatinine Coronavirus (PCR) Crossmatch 02/11/21 02/11/21 02/11/21 14:30 16:59 22:34 WBC RBC Hgb 7.1 L 6.7 L Hct 20.5 L 19.9 L* MCV MCH MCHC RDW Plt Count Lymph % (Auto) Lymph # (Auto) Seg Neutrophils % Seg Neuts % (Manual) Lymphocytes % (Manual) Monocytes % (Manual) Nucleated RBC % Seg Neutrophils # Seg Neutrophils # Man Lymphocytes # (Manual) Monocytes # (Manual) Eosinophils # (Manual) INR D-Dimer ABG pH POC ABG pCO2 POC ABG pO2 ABG pO2 ABG HCO3 ABG O2 Saturation ABG Base Excess ABG Hemoglobin ABG Oxyhemoglobin ABG Sodium ABG Potassium ABG Chloride ABG Glucose Oxyhemoglobin Carboxyhemoglobin Sodium Potassium Chloride Carbon Dioxide BUN Creatinine Glucose POC Glucose 151 H Hemoglobin A1c Lactic Acid Calcium Phosphorus Magnesium Ferritin Total Bilirubin AST ALT Lactate Dehydrogenase C-Reactive Protein Albumin Triglycerides Arterial Blood Glucose Arterial Blood Ionized Calcium Urine Creatinine Coronavirus (PCR) Crossmatch 02/11/21 02/12/21 02/12/21 23:42 04:41 05:19 WBC RBC Hgb Hct MCV MCH MCHC RDW Plt Count Lymph % (Auto) Lymph # (Auto) Seg Neutrophils % Seg Neuts % (Manual) Lymphocytes % (Manual) Monocytes % (Manual) Nucleated RBC % Seg Neutrophils # Seg Neutrophils # Man Lymphocytes # (Manual) Monocytes # (Manual) Eosinophils # (Manual) INR D-Dimer ABG pH POC ABG pCO2 POC ABG pO2 ABG pO2 69.0 L ABG HCO3 32.5 H ABG O2 Saturation ABG Base Excess 7.7 H ABG Hemoglobin 5.1 L ABG Oxyhemoglobin ABG Sodium ABG Potassium ABG Chloride ABG Glucose Oxyhemoglobin 94.7 L Carboxyhemoglobin Sodium Potassium Chloride Carbon Dioxide BUN Creatinine Glucose POC Glucose 165 H 153 H Hemoglobin A1c Lactic Acid Calcium Phosphorus Magnesium Ferritin Total Bilirubin AST ALT Lactate Dehydrogenase C-Reactive Protein Albumin Triglycerides Arterial Blood Glucose Arterial Blood Ionized Calcium Urine Creatinine Coronavirus (PCR) Crossmatch 02/12/21 02/12/21 02/12/21 06:35 06:35 08:40 WBC RBC 2.21 L Hgb 7.2 L Hct 20.7 L MCV MCH 33 H MCHC 35 H RDW Plt Count Lymph % (Auto) Lymph # (Auto) Seg Neutrophils % Seg Neuts % (Manual) Lymphocytes % (Manual) Monocytes % (Manual) Nucleated RBC % Seg Neutrophils # Seg Neutrophils # Man Lymphocytes # (Manual) Monocytes # (Manual) Eosinophils # (Manual) INR D-Dimer ABG pH POC ABG pCO2 POC ABG pO2 ABG pO2 ABG HCO3 ABG O2 Saturation ABG Base Excess ABG Hemoglobin ABG Oxyhemoglobin ABG Sodium ABG Potassium ABG Chloride ABG Glucose Oxyhemoglobin Carboxyhemoglobin Sodium 135 L Potassium 3.4 L Chloride 91.8 L Carbon Dioxide 36 H BUN 57 H Creatinine 6.8 H Glucose 163 H POC Glucose Hemoglobin A1c Lactic Acid Calcium 7.0 L Phosphorus Magnesium 1.60 L Ferritin Total Bilirubin AST ALT Lactate Dehydrogenase C-Reactive Protein Albumin Triglycerides Arterial Blood Glucose Arterial Blood Ionized Calcium Urine Creatinine Coronavirus (PCR) Crossmatch 02/12/21 02/12/21 02/12/21 10:45 12:04 17:19 WBC RBC Hgb Hct MCV MCH MCHC RDW Plt Count Lymph % (Auto) Lymph # (Auto) Seg Neutrophils % Seg Neuts % (Manual) Lymphocytes % (Manual) Monocytes % (Manual) Nucleated RBC % Seg Neutrophils # Seg Neutrophils # Man Lymphocytes # (Manual) Monocytes # (Manual) Eosinophils # (Manual) INR D-Dimer ABG pH POC ABG pCO2 POC ABG pO2 ABG pO2 ABG HCO3 ABG O2 Saturation ABG Base Excess ABG Hemoglobin ABG Oxyhemoglobin ABG Sodium ABG Potassium ABG Chloride ABG Glucose Oxyhemoglobin Carboxyhemoglobin Sodium Potassium Chloride Carbon Dioxide BUN Creatinine Glucose POC Glucose 165 H 165 H Hemoglobin A1c Lactic Acid Calcium Phosphorus Magnesium Ferritin Total Bilirubin AST ALT Lactate Dehydrogenase C-Reactive Protein Albumin Triglycerides 182 H Arterial Blood Glucose Arterial Blood Ionized Calcium Urine Creatinine Coronavirus (PCR) Crossmatch 02/12/21 02/13/21 02/13/21 23:18 05:00 05:36 WBC RBC Hgb Hct MCV MCH MCHC RDW Plt Count Lymph % (Auto) Lymph # (Auto) Seg Neutrophils % Seg Neuts % (Manual) Lymphocytes % (Manual) Monocytes % (Manual) Nucleated RBC % Seg Neutrophils # Seg Neutrophils # Man Lymphocytes # (Manual) Monocytes # (Manual) Eosinophils # (Manual) INR D-Dimer ABG pH POC ABG pCO2 60.8 H POC ABG pO2 76.4 L ABG pO2 ABG HCO3 ABG O2 Saturation ABG Base Excess ABG Hemoglobin 7.4 L ABG Oxyhemoglobin ABG Sodium 133.2 L ABG Potassium 3.3 L ABG Chloride 96.0 L ABG Glucose 168 H Oxyhemoglobin Carboxyhemoglobin Sodium Potassium Chloride Carbon Dioxide BUN Creatinine Glucose POC Glucose 163 H 151 H Hemoglobin A1c Lactic Acid Calcium Phosphorus Magnesium Ferritin Total Bilirubin AST ALT Lactate Dehydrogenase C-Reactive Protein Albumin Triglycerides Arterial Blood Glucose 168 H Arterial Blood Ionized Calcium 4.3 L Urine Creatinine Coronavirus (PCR) Crossmatch 02/13/21 02/13/21 02/13/21 06:40 06:40 06:40 WBC RBC 2.19 L Hgb 7.0 L Hct 20.8 L MCV 95 H MCH MCHC RDW Plt Count Lymph % (Auto) Lymph # (Auto) Seg Neutrophils % Seg Neuts % (Manual) Lymphocytes % (Manual) Monocytes % (Manual) Nucleated RBC % Seg Neutrophils # Seg Neutrophils # Man Lymphocytes # (Manual) Monocytes # (Manual) Eosinophils # (Manual) INR D-Dimer ABG pH POC ABG pCO2 POC ABG pO2 ABG pO2 ABG HCO3 ABG O2 Saturation ABG Base Excess ABG Hemoglobin ABG Oxyhemoglobin ABG Sodium ABG Potassium ABG Chloride ABG Glucose Oxyhemoglobin Carboxyhemoglobin Sodium 135 L Potassium 3.4 L Chloride 93.0 L Carbon Dioxide 32 H BUN 46 H Creatinine 5.8 H Glucose 148 H POC Glucose Hemoglobin A1c Lactic Acid Calcium 7.9 L Phosphorus Magnesium Ferritin Total Bilirubin AST ALT Lactate Dehydrogenase C-Reactive Protein 16.80 H Albumin Triglycerides Arterial Blood Glucose Arterial Blood Ionized Calcium Urine Creatinine Coronavirus (PCR) Crossmatch 02/13/21 02/13/21 02/13/21 06:40 07:38 07:38 WBC RBC Hgb Hct MCV MCH MCHC RDW Plt Count Lymph % (Auto) Lymph # (Auto) Seg Neutrophils % Seg Neuts % (Manual) Lymphocytes % (Manual) Monocytes % (Manual) Nucleated RBC % Seg Neutrophils # Seg Neutrophils # Man Lymphocytes # (Manual) Monocytes # (Manual) Eosinophils # (Manual) INR D-Dimer 1722.16 H ABG pH POC ABG pCO2 POC ABG pO2 ABG pO2 ABG HCO3 ABG O2 Saturation ABG Base Excess ABG Hemoglobin ABG Oxyhemoglobin ABG Sodium ABG Potassium ABG Chloride ABG Glucose Oxyhemoglobin Carboxyhemoglobin Sodium Potassium Chloride Carbon Dioxide BUN Creatinine Glucose POC Glucose Hemoglobin A1c Lactic Acid Calcium Phosphorus Magnesium 1.60 L Ferritin 976.5 H Total Bilirubin AST ALT Lactate Dehydrogenase C-Reactive Protein Albumin Triglycerides Arterial Blood Glucose Arterial Blood Ionized Calcium Urine Creatinine Coronavirus (PCR) Crossmatch 02/13/21 02/13/21 02/13/21 12:24 16:57 23:32 WBC RBC Hgb Hct MCV MCH MCHC RDW Plt Count Lymph % (Auto) Lymph # (Auto) Seg Neutrophils % Seg Neuts % (Manual) Lymphocytes % (Manual) Monocytes % (Manual) Nucleated RBC % Seg Neutrophils # Seg Neutrophils # Man Lymphocytes # (Manual) Monocytes # (Manual) Eosinophils # (Manual) INR D-Dimer ABG pH POC ABG pCO2 POC ABG pO2 ABG pO2 ABG HCO3 ABG O2 Saturation ABG Base Excess ABG Hemoglobin ABG Oxyhemoglobin ABG Sodium ABG Potassium ABG Chloride ABG Glucose Oxyhemoglobin Carboxyhemoglobin Sodium Potassium Chloride Carbon Dioxide BUN Creatinine Glucose POC Glucose 141 H 156 H 161 H Hemoglobin A1c Lactic Acid Calcium Phosphorus Magnesium Ferritin Total Bilirubin AST ALT Lactate Dehydrogenase C-Reactive Protein Albumin Triglycerides Arterial Blood Glucose Arterial Blood Ionized Calcium Urine Creatinine Coronavirus (PCR) Crossmatch 02/14/21 02/14/21 02/14/21 04:00 05:41 11:00 WBC RBC 2.14 L Hgb 6.9 L Hct 20.7 L MCV 97 H MCH 33 H MCHC RDW Plt Count Lymph % (Auto) Lymph # (Auto) Seg Neutrophils % Seg Neuts % (Manual) Lymphocytes % (Manual) Monocytes % (Manual) Nucleated RBC % Seg Neutrophils # Seg Neutrophils # Man Lymphocytes # (Manual) Monocytes # (Manual) Eosinophils # (Manual) INR D-Dimer ABG pH POC ABG pCO2 POC ABG pO2 ABG pO2 ABG HCO3 ABG O2 Saturation ABG Base Excess ABG Hemoglobin ABG Oxyhemoglobin ABG Sodium ABG Potassium ABG Chloride ABG Glucose Oxyhemoglobin Carboxyhemoglobin Sodium Potassium Chloride Carbon Dioxide BUN Creatinine Glucose POC Glucose 143 H Hemoglobin A1c Lactic Acid Calcium Phosphorus Magnesium Ferritin Total Bilirubin AST ALT Lactate Dehydrogenase C-Reactive Protein Albumin Triglycerides Arterial Blood Glucose Arterial Blood Ionized Calcium Urine Creatinine Coronavirus (PCR) Crossmatch See Detail 02/14/21 02/14/21 02/14/21 11:51 18:08 23:41 WBC RBC Hgb Hct MCV MCH MCHC RDW Plt Count Lymph % (Auto) Lymph # (Auto) Seg Neutrophils % Seg Neuts % (Manual) Lymphocytes % (Manual) Monocytes % (Manual) Nucleated RBC % Seg Neutrophils # Seg Neutrophils # Man Lymphocytes # (Manual) Monocytes # (Manual) Eosinophils # (Manual) INR D-Dimer ABG pH POC ABG pCO2 POC ABG pO2 ABG pO2 ABG HCO3 ABG O2 Saturation ABG Base Excess ABG Hemoglobin ABG Oxyhemoglobin ABG Sodium ABG Potassium ABG Chloride ABG Glucose Oxyhemoglobin Carboxyhemoglobin Sodium Potassium Chloride Carbon Dioxide BUN Creatinine Glucose POC Glucose 113 H 123 H 120 H Hemoglobin A1c Lactic Acid Calcium Phosphorus Magnesium Ferritin Total Bilirubin AST ALT Lactate Dehydrogenase C-Reactive Protein Albumin Triglycerides Arterial Blood Glucose Arterial Blood Ionized Calcium Urine Creatinine Coronavirus (PCR) Crossmatch 02/14/21 02/15/21 02/15/21 Unknown 05:00 05:00 WBC RBC Hgb Hct MCV MCH MCHC RDW Plt Count Lymph % (Auto) Lymph # (Auto) Seg Neutrophils % Seg Neuts % (Manual) Lymphocytes % (Manual) Monocytes % (Manual) Nucleated RBC % Seg Neutrophils # Seg Neutrophils # Man Lymphocytes # (Manual) Monocytes # (Manual) Eosinophils # (Manual) INR D-Dimer ABG pH POC ABG pCO2 53.4 H POC ABG pO2 61.8 L ABG pO2 ABG HCO3 ABG O2 Saturation ABG Base Excess ABG Hemoglobin 7.7 L ABG Oxyhemoglobin 88.8 L ABG Sodium ABG Potassium ABG Chloride ABG Glucose 143 H Oxyhemoglobin Carboxyhemoglobin 1.6 H Sodium Potassium Chloride 96.9 L Carbon Dioxide 33 H 31 H BUN 40 H 38 H Creatinine 5.2 H 4.8 H Glucose 152 H 132 H POC Glucose Hemoglobin A1c Lactic Acid Calcium 7.9 L Phosphorus Magnesium Ferritin Total Bilirubin AST ALT Lactate Dehydrogenase C-Reactive Protein Albumin Triglycerides Arterial Blood Glucose 143 H Arterial Blood Ionized Calcium Urine Creatinine Coronavirus (PCR) Crossmatch 02/15/21 02/15/21 02/15/21 05:00 05:27 12:05 WBC RBC 2.30 L Hgb 7.1 L Hct 22.1 L MCV 96 H MCH MCHC RDW 15.7 H Plt Count Lymph % (Auto) 11.0 L Lymph # (Auto) 1.1 L Seg Neutrophils % 83.0 H Seg Neuts % (Manual) Lymphocytes % (Manual) Monocytes % (Manual) Nucleated RBC % Seg Neutrophils # 8.6 H Seg Neutrophils # Man Lymphocytes # (Manual) Monocytes # (Manual) Eosinophils # (Manual) INR D-Dimer ABG pH POC ABG pCO2 POC ABG pO2 ABG pO2 ABG HCO3 ABG O2 Saturation ABG Base Excess ABG Hemoglobin ABG Oxyhemoglobin ABG Sodium ABG Potassium ABG Chloride ABG Glucose Oxyhemoglobin Carboxyhemoglobin Sodium Potassium Chloride Carbon Dioxide BUN Creatinine Glucose POC Glucose 133 H 123 H Hemoglobin A1c Lactic Acid Calcium Phosphorus Magnesium Ferritin Total Bilirubin AST ALT Lactate Dehydrogenase C-Reactive Protein Albumin Triglycerides Arterial Blood Glucose Arterial Blood Ionized Calcium Urine Creatinine Coronavirus (PCR) Crossmatch 02/15/21 02/15/21 02/16/21 17:08 23:52 03:44 WBC RBC Hgb Hct MCV MCH MCHC RDW Plt Count Lymph % (Auto) Lymph # (Auto) Seg Neutrophils % Seg Neuts % (Manual) Lymphocytes % (Manual) Monocytes % (Manual) Nucleated RBC % Seg Neutrophils # Seg Neutrophils # Man Lymphocytes # (Manual) Monocytes # (Manual) Eosinophils # (Manual) INR D-Dimer ABG pH 7.307 L POC ABG pCO2 59.5 H POC ABG pO2 63.2 L ABG pO2 ABG HCO3 ABG O2 Saturation ABG Base Excess ABG Hemoglobin 9.3 L ABG Oxyhemoglobin ABG Sodium ABG Potassium ABG Chloride ABG Glucose 148 H Oxyhemoglobin Carboxyhemoglobin Sodium Potassium Chloride Carbon Dioxide BUN Creatinine Glucose POC Glucose 129 H 136 H Hemoglobin A1c Lactic Acid Calcium Phosphorus Magnesium Ferritin Total Bilirubin AST ALT Lactate Dehydrogenase C-Reactive Protein Albumin Triglycerides Arterial Blood Glucose 148 H Arterial Blood Ionized Calcium Urine Creatinine Coronavirus (PCR) Crossmatch 02/16/21 02/16/21 02/16/21 05:26 06:00 12:14 WBC RBC Hgb Hct MCV MCH MCHC RDW Plt Count Lymph % (Auto) Lymph # (Auto) Seg Neutrophils % Seg Neuts % (Manual) Lymphocytes % (Manual) Monocytes % (Manual) Nucleated RBC % Seg Neutrophils # Seg Neutrophils # Man Lymphocytes # (Manual) Monocytes # (Manual) Eosinophils # (Manual) INR D-Dimer ABG pH POC ABG pCO2 POC ABG pO2 ABG pO2 ABG HCO3 ABG O2 Saturation ABG Base Excess ABG Hemoglobin ABG Oxyhemoglobin ABG Sodium ABG Potassium ABG Chloride ABG Glucose Oxyhemoglobin Carboxyhemoglobin Sodium Potassium Chloride Carbon Dioxide BUN 52 H Creatinine 6.0 H Glucose 138 H POC Glucose 135 H 128 H Hemoglobin A1c Lactic Acid Calcium Phosphorus Magnesium Ferritin Total Bilirubin AST ALT Lactate Dehydrogenase C-Reactive Protein Albumin Triglycerides Arterial Blood Glucose Arterial Blood Ionized Calcium Urine Creatinine Coronavirus (PCR) Crossmatch 02/16/21 02/16/21 02/16/21 17:09 17:09 17:09 WBC RBC Hgb Hct MCV MCH MCHC RDW Plt Count Lymph % (Auto) Lymph # (Auto) Seg Neutrophils % Seg Neuts % (Manual) Lymphocytes % (Manual) Monocytes % (Manual) Nucleated RBC % Seg Neutrophils # Seg Neutrophils # Man Lymphocytes # (Manual) Monocytes # (Manual) Eosinophils # (Manual) INR D-Dimer 4256.08 H ABG pH POC ABG pCO2 POC ABG pO2 ABG pO2 ABG HCO3 ABG O2 Saturation ABG Base Excess ABG Hemoglobin ABG Oxyhemoglobin ABG Sodium ABG Potassium ABG Chloride ABG Glucose Oxyhemoglobin Carboxyhemoglobin Sodium Potassium Chloride Carbon Dioxide BUN Creatinine Glucose POC Glucose Hemoglobin A1c Lactic Acid Calcium Phosphorus Magnesium Ferritin 980.6 H Total Bilirubin AST ALT Lactate Dehydrogenase 441 H C-Reactive Protein 20.20 H Albumin Triglycerides Arterial Blood Glucose Arterial Blood Ionized Calcium Urine Creatinine Coronavirus (PCR) Crossmatch 02/16/21 02/16/21 02/16/21 17:25 23:16 Unknown WBC RBC 2.19 L Hgb 7.1 L Hct 21.3 L MCV 98 H MCH 33 H MCHC RDW 16.0 H Plt Count Lymph % (Auto) Lymph # (Auto) Seg Neutrophils % Seg Neuts % (Manual) 85.0 H Lymphocytes % (Manual) 6.0 L Monocytes % (Manual) Nucleated RBC % 4.0 H Seg Neutrophils # Seg Neutrophils # Man Lymphocytes # (Manual) 0.5 L Monocytes # (Manual) Eosinophils # (Manual) INR D-Dimer ABG pH POC ABG pCO2 POC ABG pO2 ABG pO2 ABG HCO3 ABG O2 Saturation ABG Base Excess ABG Hemoglobin ABG Oxyhemoglobin ABG Sodium ABG Potassium ABG Chloride ABG Glucose Oxyhemoglobin Carboxyhemoglobin Sodium Potassium Chloride Carbon Dioxide BUN Creatinine Glucose POC Glucose 146 H 150 H Hemoglobin A1c Lactic Acid Calcium Phosphorus Magnesium Ferritin Total Bilirubin AST ALT Lactate Dehydrogenase C-Reactive Protein Albumin Triglycerides Arterial Blood Glucose Arterial Blood Ionized Calcium Urine Creatinine Coronavirus (PCR) Crossmatch 02/17/21 02/17/21 02/17/21 04:00 04:14 04:14 WBC RBC Hgb Hct MCV MCH MCHC RDW Plt Count Lymph % (Auto) Lymph # (Auto) Seg Neutrophils % Seg Neuts % (Manual) Lymphocytes % (Manual) Monocytes % (Manual) Nucleated RBC % Seg Neutrophils # Seg Neutrophils # Man Lymphocytes # (Manual) Monocytes # (Manual) Eosinophils # (Manual) INR D-Dimer 3183.35 H ABG pH 7.293 L POC ABG pCO2 59.5 H POC ABG pO2 68.1 L ABG pO2 ABG HCO3 ABG O2 Saturation ABG Base Excess ABG Hemoglobin 7.7 L ABG Oxyhemoglobin ABG Sodium 133.4 L ABG Potassium ABG Chloride ABG Glucose 143 H Oxyhemoglobin Carboxyhemoglobin Sodium 136 L Potassium Chloride 97.3 L Carbon Dioxide BUN 49 H Creatinine 5.3 H Glucose 139 H POC Glucose Hemoglobin A1c Lactic Acid Calcium Phosphorus Magnesium Ferritin Total Bilirubin AST ALT Lactate Dehydrogenase C-Reactive Protein Albumin Triglycerides Arterial Blood Glucose 143 H Arterial Blood Ionized Calcium Urine Creatinine Coronavirus (PCR) Crossmatch 02/17/21 02/17/21 02/17/21 04:14 04:14 04:14 WBC RBC 2.14 L Hgb 6.9 L Hct 21.0 L MCV 98 H MCH MCHC RDW 15.8 H Plt Count Lymph % (Auto) Lymph # (Auto) Seg Neutrophils % Seg Neuts % (Manual) Lymphocytes % (Manual) Monocytes % (Manual) Nucleated RBC % Seg Neutrophils # Seg Neutrophils # Man Lymphocytes # (Manual) Monocytes # (Manual) Eosinophils # (Manual) INR D-Dimer ABG pH POC ABG pCO2 POC ABG pO2 ABG pO2 ABG HCO3 ABG O2 Saturation ABG Base Excess ABG Hemoglobin ABG Oxyhemoglobin ABG Sodium ABG Potassium ABG Chloride ABG Glucose Oxyhemoglobin Carboxyhemoglobin Sodium Potassium Chloride Carbon Dioxide BUN Creatinine Glucose POC Glucose Hemoglobin A1c Lactic Acid Calcium Phosphorus Magnesium Ferritin 894.0 H Total Bilirubin AST ALT Lactate Dehydrogenase 399 H C-Reactive Protein 22.10 H Albumin Triglycerides Arterial Blood Glucose Arterial Blood Ionized Calcium Urine Creatinine Coronavirus (PCR) Crossmatch 02/17/21 02/17/21 02/17/21 06:06 07:45 12:25 WBC RBC Hgb 7.6 L Hct 22.8 L MCV MCH MCHC RDW Plt Count Lymph % (Auto) Lymph # (Auto) Seg Neutrophils % Seg Neuts % (Manual) Lymphocytes % (Manual) Monocytes % (Manual) Nucleated RBC % Seg Neutrophils # Seg Neutrophils # Man Lymphocytes # (Manual) Monocytes # (Manual) Eosinophils # (Manual) INR D-Dimer ABG pH POC ABG pCO2 POC ABG pO2 ABG pO2 ABG HCO3 ABG O2 Saturation ABG Base Excess ABG Hemoglobin ABG Oxyhemoglobin ABG Sodium ABG Potassium ABG Chloride ABG Glucose Oxyhemoglobin Carboxyhemoglobin Sodium Potassium Chloride Carbon Dioxide BUN Creatinine Glucose POC Glucose 134 H Hemoglobin A1c Lactic Acid Calcium Phosphorus Magnesium Ferritin Total Bilirubin AST ALT Lactate Dehydrogenase C-Reactive Protein Albumin Triglycerides Arterial Blood Glucose Arterial Blood Ionized Calcium Urine Creatinine Coronavirus (PCR) Crossmatch See Detail 02/17/21 02/17/21 02/17/21 12:35 17:56 23:34 WBC RBC Hgb Hct MCV MCH MCHC RDW Plt Count Lymph % (Auto) Lymph # (Auto) Seg Neutrophils % Seg Neuts % (Manual) Lymphocytes % (Manual) Monocytes % (Manual) Nucleated RBC % Seg Neutrophils # Seg Neutrophils # Man Lymphocytes # (Manual) Monocytes # (Manual) Eosinophils # (Manual) INR D-Dimer ABG pH POC ABG pCO2 POC ABG pO2 ABG pO2 ABG HCO3 ABG O2 Saturation ABG Base Excess ABG Hemoglobin ABG Oxyhemoglobin ABG Sodium ABG Potassium ABG Chloride ABG Glucose Oxyhemoglobin Carboxyhemoglobin Sodium Potassium Chloride Carbon Dioxide BUN Creatinine Glucose POC Glucose 114 H 128 H 120 H Hemoglobin A1c Lactic Acid Calcium Phosphorus Magnesium Ferritin Total Bilirubin AST ALT Lactate Dehydrogenase C-Reactive Protein Albumin Triglycerides Arterial Blood Glucose Arterial Blood Ionized Calcium Urine Creatinine Coronavirus (PCR) Crossmatch 02/18/21 02/18/21 02/18/21 04:03 04:55 05:02 WBC RBC 2.40 L Hgb 7.5 L Hct 23.1 L MCV 96 H MCH MCHC RDW 16.8 H Plt Count Lymph % (Auto) Lymph # (Auto) Seg Neutrophils % Seg Neuts % (Manual) Lymphocytes % (Manual) Monocytes % (Manual) Nucleated RBC % Seg Neutrophils # Seg Neutrophils # Man Lymphocytes # (Manual) Monocytes # (Manual) Eosinophils # (Manual) INR D-Dimer ABG pH 7.219 L POC ABG pCO2 58.7 H POC ABG pO2 64.2 L ABG pO2 ABG HCO3 ABG O2 Saturation ABG Base Excess ABG Hemoglobin ABG Oxyhemoglobin ABG Sodium 130.5 L ABG Potassium ABG Chloride ABG Glucose 147 H Oxyhemoglobin Carboxyhemoglobin Sodium 134 L Potassium Chloride 97.9 L Carbon Dioxide BUN 64 H Creatinine 6.5 H Glucose 135 H POC Glucose Hemoglobin A1c Lactic Acid Calcium 8.0 L Phosphorus Magnesium Ferritin Total Bilirubin AST ALT Lactate Dehydrogenase C-Reactive Protein Albumin Triglycerides Arterial Blood Glucose 147 H Arterial Blood Ionized Calcium Urine Creatinine Coronavirus (PCR) Crossmatch 02/18/21 02/18/21 02/18/21 05:27 10:00 11:51 WBC RBC Hgb Hct MCV MCH MCHC RDW Plt Count Lymph % (Auto) Lymph # (Auto) Seg Neutrophils % Seg Neuts % (Manual) Lymphocytes % (Manual) Monocytes % (Manual) Nucleated RBC % Seg Neutrophils # Seg Neutrophils # Man Lymphocytes # (Manual) Monocytes # (Manual) Eosinophils # (Manual) INR D-Dimer ABG pH POC ABG pCO2 POC ABG pO2 ABG pO2 ABG HCO3 ABG O2 Saturation ABG Base Excess ABG Hemoglobin ABG Oxyhemoglobin ABG Sodium ABG Potassium ABG Chloride ABG Glucose Oxyhemoglobin Carboxyhemoglobin Sodium Potassium Chloride Carbon Dioxide BUN Creatinine Glucose POC Glucose 130 H 123 H Hemoglobin A1c Lactic Acid Calcium Phosphorus Magnesium Ferritin Total Bilirubin AST ALT Lactate Dehydrogenase C-Reactive Protein Albumin Triglycerides Arterial Blood Glucose Arterial Blood Ionized Calcium Urine Creatinine Coronavirus (PCR) Positive A Crossmatch 02/18/21 02/18/21 02/19/21 18:10 23:35 05:00 WBC RBC Hgb Hct MCV MCH MCHC RDW Plt Count Lymph % (Auto) Lymph # (Auto) Seg Neutrophils % Seg Neuts % (Manual) Lymphocytes % (Manual) Monocytes % (Manual) Nucleated RBC % Seg Neutrophils # Seg Neutrophils # Man Lymphocytes # (Manual) Monocytes # (Manual) Eosinophils # (Manual) INR D-Dimer ABG pH 7.232 L POC ABG pCO2 64.3 H POC ABG pO2 ABG pO2 ABG HCO3 ABG O2 Saturation ABG Base Excess ABG Hemoglobin 8.1 L ABG Oxyhemoglobin ABG Sodium 133.5 L ABG Potassium ABG Chloride ABG Glucose 148 H Oxyhemoglobin Carboxyhemoglobin 1.6 H Sodium Potassium Chloride Carbon Dioxide BUN Creatinine Glucose POC Glucose 123 H 137 H Hemoglobin A1c Lactic Acid Calcium Phosphorus Magnesium Ferritin Total Bilirubin AST ALT Lactate Dehydrogenase C-Reactive Protein Albumin Triglycerides Arterial Blood Glucose 148 H Arterial Blood Ionized Calcium Urine Creatinine Coronavirus (PCR) Crossmatch 02/19/21 02/19/21 02/19/21 05:12 05:45 05:45 WBC RBC Hgb Hct MCV MCH MCHC RDW Plt Count Lymph % (Auto) Lymph # (Auto) Seg Neutrophils % Seg Neuts % (Manual) Lymphocytes % (Manual) Monocytes % (Manual) Nucleated RBC % Seg Neutrophils # Seg Neutrophils # Man Lymphocytes # (Manual) Monocytes # (Manual) Eosinophils # (Manual) INR D-Dimer 4840.82 H ABG pH POC ABG pCO2 POC ABG pO2 ABG pO2 ABG HCO3 ABG O2 Saturation ABG Base Excess ABG Hemoglobin ABG Oxyhemoglobin ABG Sodium ABG Potassium ABG Chloride ABG Glucose Oxyhemoglobin Carboxyhemoglobin Sodium 135 L Potassium Chloride 97.8 L Carbon Dioxide BUN 58 H Creatinine 5.6 H Glucose 140 H POC Glucose 134 H Hemoglobin A1c Lactic Acid Calcium Phosphorus Magnesium Ferritin Total Bilirubin AST ALT Lactate Dehydrogenase 345 H C-Reactive Protein 15.20 H Albumin Triglycerides 195 H Arterial Blood Glucose Arterial Blood Ionized Calcium Urine Creatinine Coronavirus (PCR) Crossmatch 02/19/21 02/19/21 02/19/21 05:45 12:00 17:48 WBC RBC Hgb Hct MCV MCH MCHC RDW Plt Count Lymph % (Auto) Lymph # (Auto) Seg Neutrophils % Seg Neuts % (Manual) Lymphocytes % (Manual) Monocytes % (Manual) Nucleated RBC % Seg Neutrophils # Seg Neutrophils # Man Lymphocytes # (Manual) Monocytes # (Manual) Eosinophils # (Manual) INR D-Dimer ABG pH POC ABG pCO2 POC ABG pO2 ABG pO2 ABG HCO3 ABG O2 Saturation ABG Base Excess ABG Hemoglobin ABG Oxyhemoglobin ABG Sodium ABG Potassium ABG Chloride ABG Glucose Oxyhemoglobin Carboxyhemoglobin Sodium Potassium Chloride Carbon Dioxide BUN Creatinine Glucose POC Glucose 122 H 119 H Hemoglobin A1c Lactic Acid Calcium Phosphorus Magnesium Ferritin 951.8 H Total Bilirubin AST ALT Lactate Dehydrogenase C-Reactive Protein Albumin Triglycerides Arterial Blood Glucose Arterial Blood Ionized Calcium Urine Creatinine Coronavirus (PCR) Crossmatch 02/20/21 02/20/21 02/20/21 03:20 04:00 11:48 WBC RBC Hgb Hct MCV MCH MCHC RDW Plt Count Lymph % (Auto) Lymph # (Auto) Seg Neutrophils % Seg Neuts % (Manual) Lymphocytes % (Manual) Monocytes % (Manual) Nucleated RBC % Seg Neutrophils # Seg Neutrophils # Man Lymphocytes # (Manual) Monocytes # (Manual) Eosinophils # (Manual) INR D-Dimer ABG pH 7.276 L POC ABG pCO2 57.3 H POC ABG pO2 71.0 L ABG pO2 ABG HCO3 ABG O2 Saturation ABG Base Excess ABG Hemoglobin 8.2 L ABG Oxyhemoglobin 91.9 L ABG Sodium 128.1 L ABG Potassium 4.8 H ABG Chloride ABG Glucose Oxyhemoglobin Carboxyhemoglobin 1.6 H Sodium 136 L Potassium Chloride Carbon Dioxide BUN 69 H Creatinine 6.4 H Glucose POC Glucose 131 H Hemoglobin A1c Lactic Acid Calcium 8.1 L Phosphorus Magnesium Ferritin Total Bilirubin AST ALT Lactate Dehydrogenase C-Reactive Protein Albumin Triglycerides Arterial Blood Glucose Arterial Blood Ionized Calcium 4.5 L Urine Creatinine Coronavirus (PCR) Crossmatch 02/20/21 02/20/21 02/21/21 18:05 23:28 02:53 WBC RBC Hgb Hct MCV MCH MCHC RDW Plt Count Lymph % (Auto) Lymph # (Auto) Seg Neutrophils % Seg Neuts % (Manual) Lymphocytes % (Manual) Monocytes % (Manual) Nucleated RBC % Seg Neutrophils # Seg Neutrophils # Man Lymphocytes # (Manual) Monocytes # (Manual) Eosinophils # (Manual) INR D-Dimer ABG pH 7.288 L POC ABG pCO2 52.7 H POC ABG pO2 81.5 L ABG pO2 ABG HCO3 ABG O2 Saturation ABG Base Excess ABG Hemoglobin 8.5 L ABG Oxyhemoglobin 93.6 L ABG Sodium 132.5 L ABG Potassium 4.6 H ABG Chloride ABG Glucose 106 H Oxyhemoglobin Carboxyhemoglobin 1.6 H Sodium Potassium Chloride Carbon Dioxide BUN Creatinine Glucose POC Glucose 114 H 118 H Hemoglobin A1c Lactic Acid Calcium Phosphorus Magnesium Ferritin Total Bilirubin AST ALT Lactate Dehydrogenase C-Reactive Protein Albumin Triglycerides Arterial Blood Glucose 106 H Arterial Blood Ionized Calcium 4.4 L Urine Creatinine Coronavirus (PCR) Crossmatch 02/21/21 02/21/21 02/21/21 05:29 11:42 16:35 WBC RBC Hgb Hct MCV MCH MCHC RDW Plt Count Lymph % (Auto) Lymph # (Auto) Seg Neutrophils % Seg Neuts % (Manual) Lymphocytes % (Manual) Monocytes % (Manual) Nucleated RBC % Seg Neutrophils # Seg Neutrophils # Man Lymphocytes # (Manual) Monocytes # (Manual) Eosinophils # (Manual) INR D-Dimer ABG pH POC ABG pCO2 POC ABG pO2 ABG pO2 ABG HCO3 ABG O2 Saturation ABG Base Excess ABG Hemoglobin ABG Oxyhemoglobin ABG Sodium ABG Potassium ABG Chloride ABG Glucose Oxyhemoglobin Carboxyhemoglobin Sodium Potassium 5.6 H Chloride 97.6 L Carbon Dioxide BUN 68 H Creatinine 5.7 H Glucose 160 H POC Glucose 111 H 131 H Hemoglobin A1c Lactic Acid Calcium 8.0 L Phosphorus 7.90 H Magnesium 2.60 H Ferritin Total Bilirubin AST ALT Lactate Dehydrogenase C-Reactive Protein Albumin Triglycerides Arterial Blood Glucose Arterial Blood Ionized Calcium Urine Creatinine Coronavirus (PCR) Crossmatch 02/21/21 02/22/21 02/22/21 17:17 00:04 04:22 WBC RBC Hgb Hct MCV MCH MCHC RDW Plt Count Lymph % (Auto) Lymph # (Auto) Seg Neutrophils % Seg Neuts % (Manual) Lymphocytes % (Manual) Monocytes % (Manual) Nucleated RBC % Seg Neutrophils # Seg Neutrophils # Man Lymphocytes # (Manual) Monocytes # (Manual) Eosinophils # (Manual) INR D-Dimer ABG pH 7.250 L POC ABG pCO2 60.1 H POC ABG pO2 57.6 L ABG pO2 ABG HCO3 ABG O2 Saturation ABG Base Excess ABG Hemoglobin 8.8 L ABG Oxyhemoglobin 87.0 L ABG Sodium 133.4 L ABG Potassium 5.1 H ABG Chloride ABG Glucose 124 H Oxyhemoglobin Carboxyhemoglobin Sodium Potassium Chloride Carbon Dioxide BUN Creatinine Glucose POC Glucose 135 H 121 H Hemoglobin A1c Lactic Acid Calcium Phosphorus Magnesium Ferritin Total Bilirubin AST ALT Lactate Dehydrogenase C-Reactive Protein Albumin Triglycerides Arterial Blood Glucose 124 H Arterial Blood Ionized Calcium Urine Creatinine Coronavirus (PCR) Crossmatch 02/22/21 02/22/21 02/22/21 05:33 09:41 09:41 WBC 13.2 H RBC 2.35 L Hgb 7.5 L Hct 22.7 L MCV 96 H MCH MCHC RDW 17.0 H Plt Count Lymph % (Auto) Lymph # (Auto) Seg Neutrophils % Seg Neuts % (Manual) 93.0 H Lymphocytes % (Manual) 4.0 L Monocytes % (Manual) Nucleated RBC % 1.0 H Seg Neutrophils # Seg Neutrophils # Man 12.3 H Lymphocytes # (Manual) 0.5 L Monocytes # (Manual) Eosinophils # (Manual) INR D-Dimer ABG pH POC ABG pCO2 POC ABG pO2 ABG pO2 ABG HCO3 ABG O2 Saturation ABG Base Excess ABG Hemoglobin ABG Oxyhemoglobin ABG Sodium ABG Potassium ABG Chloride ABG Glucose Oxyhemoglobin Carboxyhemoglobin Sodium Potassium 5.4 H Chloride Carbon Dioxide BUN 61 H Creatinine 5.5 H Glucose 117 H POC Glucose 114 H Hemoglobin A1c Lactic Acid Calcium 8.3 L Phosphorus Magnesium Ferritin Total Bilirubin AST ALT Lactate Dehydrogenase C-Reactive Protein Albumin Triglycerides Arterial Blood Glucose Arterial Blood Ionized Calcium Urine Creatinine Coronavirus (PCR) Crossmatch 02/22/21 02/22/21 02/23/21 12:08 17:06 04:00 WBC RBC Hgb Hct MCV MCH MCHC RDW Plt Count Lymph % (Auto) Lymph # (Auto) Seg Neutrophils % Seg Neuts % (Manual) Lymphocytes % (Manual) Monocytes % (Manual) Nucleated RBC % Seg Neutrophils # Seg Neutrophils # Man Lymphocytes # (Manual) Monocytes # (Manual) Eosinophils # (Manual) INR D-Dimer ABG pH 7.246 L POC ABG pCO2 POC ABG pO2 ABG pO2 119.4 H ABG HCO3 26.6 H ABG O2 Saturation ABG Base Excess ABG Hemoglobin 8.8 L ABG Oxyhemoglobin ABG Sodium ABG Potassium ABG Chloride ABG Glucose Oxyhemoglobin Carboxyhemoglobin Sodium Potassium Chloride Carbon Dioxide BUN Creatinine Glucose POC Glucose 133 H 114 H Hemoglobin A1c Lactic Acid Calcium Phosphorus Magnesium Ferritin Total Bilirubin AST ALT Lactate Dehydrogenase C-Reactive Protein Albumin Triglycerides Arterial Blood Glucose Arterial Blood Ionized Calcium Urine Creatinine Coronavirus (PCR) Crossmatch 02/23/21 02/23/21 02/24/21 06:20 11:42 03:43 WBC RBC Hgb Hct MCV MCH MCHC RDW Plt Count Lymph % (Auto) Lymph # (Auto) Seg Neutrophils % Seg Neuts % (Manual) Lymphocytes % (Manual) Monocytes % (Manual) Nucleated RBC % Seg Neutrophils # Seg Neutrophils # Man Lymphocytes # (Manual) Monocytes # (Manual) Eosinophils # (Manual) INR D-Dimer ABG pH 7.287 L POC ABG pCO2 54.7 H POC ABG pO2 ABG pO2 ABG HCO3 ABG O2 Saturation ABG Base Excess ABG Hemoglobin 8.5 L ABG Oxyhemoglobin ABG Sodium 135.6 L ABG Potassium ABG Chloride ABG Glucose 117 H Oxyhemoglobin Carboxyhemoglobin Sodium Potassium Chloride 97.6 L Carbon Dioxide BUN 79 H Creatinine 6.2 H Glucose POC Glucose 108 H Hemoglobin A1c Lactic Acid Calcium 8.3 L Phosphorus Magnesium Ferritin Total Bilirubin AST ALT Lactate Dehydrogenase C-Reactive Protein Albumin Triglycerides Arterial Blood Glucose 117 H Arterial Blood Ionized Calcium Urine Creatinine Coronavirus (PCR) Crossmatch 02/24/21 02/24/21 02/24/21 04:25 04:25 04:25 WBC 11.5 H RBC 2.47 L Hgb 7.7 L Hct 23.5 L MCV 95 H MCH MCHC RDW 16.7 H Plt Count Lymph % (Auto) Lymph # (Auto) Seg Neutrophils % Seg Neuts % (Manual) 82.0 H Lymphocytes % (Manual) 3.0 L Monocytes % (Manual) 11.0 H Nucleated RBC % Seg Neutrophils # Seg Neutrophils # Man 9.4 H Lymphocytes # (Manual) 0.3 L Monocytes # (Manual) 1.3 H Eosinophils # (Manual) INR D-Dimer 4695.21 H ABG pH POC ABG pCO2 POC ABG pO2 ABG pO2 ABG HCO3 ABG O2 Saturation ABG Base Excess ABG Hemoglobin ABG Oxyhemoglobin ABG Sodium ABG Potassium ABG Chloride ABG Glucose Oxyhemoglobin Carboxyhemoglobin Sodium Potassium Chloride Carbon Dioxide BUN 68 H Creatinine 4.9 H Glucose 113 H POC Glucose Hemoglobin A1c Lactic Acid Calcium Phosphorus Magnesium Ferritin Total Bilirubin AST ALT Lactate Dehydrogenase C-Reactive Protein 7.20 H Albumin Triglycerides Arterial Blood Glucose Arterial Blood Ionized Calcium Urine Creatinine Coronavirus (PCR) Crossmatch 02/24/21 02/24/21 02/24/21 04:25 05:01 11:12 WBC RBC Hgb Hct MCV MCH MCHC RDW Plt Count Lymph % (Auto) Lymph # (Auto) Seg Neutrophils % Seg Neuts % (Manual) Lymphocytes % (Manual) Monocytes % (Manual) Nucleated RBC % Seg Neutrophils # Seg Neutrophils # Man Lymphocytes # (Manual) Monocytes # (Manual) Eosinophils # (Manual) INR D-Dimer ABG pH POC ABG pCO2 POC ABG pO2 ABG pO2 ABG HCO3 ABG O2 Saturation ABG Base Excess ABG Hemoglobin ABG Oxyhemoglobin ABG Sodium ABG Potassium ABG Chloride ABG Glucose Oxyhemoglobin Carboxyhemoglobin Sodium Potassium Chloride Carbon Dioxide BUN Creatinine Glucose POC Glucose 116 H 112 H Hemoglobin A1c Lactic Acid Calcium Phosphorus Magnesium Ferritin 1116.0 H Total Bilirubin AST ALT Lactate Dehydrogenase C-Reactive Protein Albumin Triglycerides Arterial Blood Glucose Arterial Blood Ionized Calcium Urine Creatinine Coronavirus (PCR) Crossmatch 02/24/21 02/25/21 02/25/21 18:11 03:42 05:58 WBC RBC Hgb Hct MCV MCH MCHC RDW Plt Count Lymph % (Auto) Lymph # (Auto) Seg Neutrophils % Seg Neuts % (Manual) Lymphocytes % (Manual) Monocytes % (Manual) Nucleated RBC % Seg Neutrophils # Seg Neutrophils # Man Lymphocytes # (Manual) Monocytes # (Manual) Eosinophils # (Manual) INR D-Dimer ABG pH 7.287 L POC ABG pCO2 58.2 H POC ABG pO2 ABG pO2 ABG HCO3 ABG O2 Saturation ABG Base Excess ABG Hemoglobin 8.4 L ABG Oxyhemoglobin 93.7 L ABG Sodium ABG Potassium ABG Chloride ABG Glucose 104 H Oxyhemoglobin Carboxyhemoglobin Sodium Potassium Chloride Carbon Dioxide BUN Creatinine Glucose POC Glucose 109 H 109 H Hemoglobin A1c Lactic Acid Calcium Phosphorus Magnesium Ferritin Total Bilirubin AST ALT Lactate Dehydrogenase C-Reactive Protein Albumin Triglycerides Arterial Blood Glucose 104 H Arterial Blood Ionized Calcium 4.5 L Urine Creatinine Coronavirus (PCR) Crossmatch 02/25/21 02/25/21 02/25/21 09:03 13:47 16:50 WBC RBC Hgb Hct MCV MCH MCHC RDW Plt Count Lymph % (Auto) Lymph # (Auto) Seg Neutrophils % Seg Neuts % (Manual) Lymphocytes % (Manual) Monocytes % (Manual) Nucleated RBC % Seg Neutrophils # Seg Neutrophils # Man Lymphocytes # (Manual) Monocytes # (Manual) Eosinophils # (Manual) INR D-Dimer 6536.84 H ABG pH POC ABG pCO2 POC ABG pO2 ABG pO2 ABG HCO3 ABG O2 Saturation ABG Base Excess ABG Hemoglobin ABG Oxyhemoglobin ABG Sodium ABG Potassium ABG Chloride ABG Glucose Oxyhemoglobin Carboxyhemoglobin Sodium Potassium Chloride Carbon Dioxide BUN Creatinine Glucose POC Glucose 144 H 114 H Hemoglobin A1c Lactic Acid Calcium Phosphorus Magnesium Ferritin Total Bilirubin AST ALT Lactate Dehydrogenase C-Reactive Protein Albumin Triglycerides Arterial Blood Glucose Arterial Blood Ionized Calcium Urine Creatinine Coronavirus (PCR) Crossmatch 02/25/21 02/26/21 02/26/21 23:53 03:35 05:36 WBC RBC Hgb Hct MCV MCH MCHC RDW Plt Count Lymph % (Auto) Lymph # (Auto) Seg Neutrophils % Seg Neuts % (Manual) Lymphocytes % (Manual) Monocytes % (Manual) Nucleated RBC % Seg Neutrophils # Seg Neutrophils # Man Lymphocytes # (Manual) Monocytes # (Manual) Eosinophils # (Manual) INR D-Dimer ABG pH 7.179 L POC ABG pCO2 76.6 H POC ABG pO2 ABG pO2 ABG HCO3 ABG O2 Saturation ABG Base Excess ABG Hemoglobin 9.0 L ABG Oxyhemoglobin ABG Sodium 134.8 L ABG Potassium ABG Chloride ABG Glucose 118 H Oxyhemoglobin Carboxyhemoglobin Sodium Potassium Chloride Carbon Dioxide BUN Creatinine Glucose POC Glucose 110 H 113 H Hemoglobin A1c Lactic Acid Calcium Phosphorus Magnesium Ferritin Total Bilirubin AST ALT Lactate Dehydrogenase C-Reactive Protein Albumin Triglycerides Arterial Blood Glucose 118 H Arterial Blood Ionized Calcium Urine Creatinine Coronavirus (PCR) Crossmatch 02/26/21 02/26/21 02/26/21 05:48 05:48 05:48 WBC 11.4 H RBC 2.40 L Hgb 7.5 L Hct 23.2 L MCV 97 H MCH MCHC RDW 17.4 H Plt Count Lymph % (Auto) Lymph # (Auto) Seg Neutrophils % Seg Neuts % (Manual) Lymphocytes % (Manual) Monocytes % (Manual) Nucleated RBC % Seg Neutrophils # Seg Neutrophils # Man Lymphocytes # (Manual) Monocytes # (Manual) Eosinophils # (Manual) INR D-Dimer ABG pH POC ABG pCO2 POC ABG pO2 ABG pO2 ABG HCO3 ABG O2 Saturation ABG Base Excess ABG Hemoglobin ABG Oxyhemoglobin ABG Sodium ABG Potassium ABG Chloride ABG Glucose Oxyhemoglobin Carboxyhemoglobin Sodium Potassium Chloride Carbon Dioxide BUN 72 H Creatinine 4.5 H Glucose 112 H POC Glucose Hemoglobin A1c Lactic Acid Calcium 7.7 L Phosphorus Magnesium Ferritin 867.8 H Total Bilirubin AST ALT Lactate Dehydrogenase C-Reactive Protein 5.90 H Albumin Triglycerides Arterial Blood Glucose Arterial Blood Ionized Calcium Urine Creatinine Coronavirus (PCR) Crossmatch 02/26/21 02/26/21 02/26/21 08:00 11:29 18:13 WBC RBC Hgb Hct MCV MCH MCHC RDW Plt Count Lymph % (Auto) Lymph # (Auto) Seg Neutrophils % Seg Neuts % (Manual) Lymphocytes % (Manual) Monocytes % (Manual) Nucleated RBC % Seg Neutrophils # Seg Neutrophils # Man Lymphocytes # (Manual) Monocytes # (Manual) Eosinophils # (Manual) INR D-Dimer ABG pH 7.228 L POC ABG pCO2 70.2 H POC ABG pO2 79.7 L ABG pO2 ABG HCO3 ABG O2 Saturation ABG Base Excess ABG Hemoglobin 7.6 L ABG Oxyhemoglobin 93.2 L ABG Sodium 135.7 L ABG Potassium ABG Chloride ABG Glucose 119 H Oxyhemoglobin Carboxyhemoglobin Sodium Potassium Chloride Carbon Dioxide BUN Creatinine Glucose POC Glucose 110 H 115 H Hemoglobin A1c Lactic Acid Calcium Phosphorus Magnesium Ferritin Total Bilirubin AST ALT Lactate Dehydrogenase C-Reactive Protein Albumin Triglycerides Arterial Blood Glucose 119 H Arterial Blood Ionized Calcium Urine Creatinine Coronavirus (PCR) Crossmatch 02/26/21 02/27/21 02/27/21 23:18 04:00 05:04 WBC RBC Hgb Hct MCV MCH MCHC RDW Plt Count Lymph % (Auto) Lymph # (Auto) Seg Neutrophils % Seg Neuts % (Manual) Lymphocytes % (Manual) Monocytes % (Manual) Nucleated RBC % Seg Neutrophils # Seg Neutrophils # Man Lymphocytes # (Manual) Monocytes # (Manual) Eosinophils # (Manual) INR D-Dimer ABG pH 7.316 L POC ABG pCO2 49.0 H POC ABG pO2 111.2 H ABG pO2 ABG HCO3 ABG O2 Saturation ABG Base Excess ABG Hemoglobin 7.7 L ABG Oxyhemoglobin ABG Sodium 135.0 L ABG Potassium ABG Chloride ABG Glucose 113 H Oxyhemoglobin Carboxyhemoglobin Sodium Potassium Chloride Carbon Dioxide BUN Creatinine Glucose POC Glucose 114 H 112 H Hemoglobin A1c Lactic Acid Calcium Phosphorus Magnesium Ferritin Total Bilirubin AST ALT Lactate Dehydrogenase C-Reactive Protein Albumin Triglycerides Arterial Blood Glucose 113 H Arterial Blood Ionized Calcium 4.4 L Urine Creatinine Coronavirus (PCR) Crossmatch 02/27/21 02/27/21 02/27/21 12:13 18:30 23:40 WBC RBC Hgb Hct MCV MCH MCHC RDW Plt Count Lymph % (Auto) Lymph # (Auto) Seg Neutrophils % Seg Neuts % (Manual) Lymphocytes % (Manual) Monocytes % (Manual) Nucleated RBC % Seg Neutrophils # Seg Neutrophils # Man Lymphocytes # (Manual) Monocytes # (Manual) Eosinophils # (Manual) INR D-Dimer ABG pH POC ABG pCO2 POC ABG pO2 ABG pO2 ABG HCO3 ABG O2 Saturation ABG Base Excess ABG Hemoglobin ABG Oxyhemoglobin ABG Sodium ABG Potassium ABG Chloride ABG Glucose Oxyhemoglobin Carboxyhemoglobin Sodium Potassium Chloride Carbon Dioxide BUN Creatinine Glucose POC Glucose 127 H 129 H 115 H Hemoglobin A1c Lactic Acid Calcium Phosphorus Magnesium Ferritin Total Bilirubin AST ALT Lactate Dehydrogenase C-Reactive Protein Albumin Triglycerides Arterial Blood Glucose Arterial Blood Ionized Calcium Urine Creatinine Coronavirus (PCR) Crossmatch 02/28/21 02/28/21 02/28/21 04:07 05:29 10:22 WBC RBC Hgb Hct MCV MCH MCHC RDW Plt Count Lymph % (Auto) Lymph # (Auto) Seg Neutrophils % Seg Neuts % (Manual) Lymphocytes % (Manual) Monocytes % (Manual) Nucleated RBC % Seg Neutrophils # Seg Neutrophils # Man Lymphocytes # (Manual) Monocytes # (Manual) Eosinophils # (Manual) INR D-Dimer ABG pH 7.260 L POC ABG pCO2 67.6 H POC ABG pO2 ABG pO2 ABG HCO3 ABG O2 Saturation ABG Base Excess ABG Hemoglobin 7.9 L ABG Oxyhemoglobin ABG Sodium ABG Potassium ABG Chloride ABG Glucose 129 H Oxyhemoglobin Carboxyhemoglobin Sodium Potassium Chloride Carbon Dioxide BUN 68 H Creatinine 3.5 H Glucose 117 H POC Glucose 117 H Hemoglobin A1c Lactic Acid Calcium 7.9 L Phosphorus Magnesium Ferritin Total Bilirubin AST ALT Lactate Dehydrogenase C-Reactive Protein Albumin Triglycerides Arterial Blood Glucose 129 H Arterial Blood Ionized Calcium Urine Creatinine Coronavirus (PCR) Crossmatch 02/28/21 02/28/21 03/01/21 11:51 17:26 00:31 WBC RBC Hgb Hct MCV MCH MCHC RDW Plt Count Lymph % (Auto) Lymph # (Auto) Seg Neutrophils % Seg Neuts % (Manual) Lymphocytes % (Manual) Monocytes % (Manual) Nucleated RBC % Seg Neutrophils # Seg Neutrophils # Man Lymphocytes # (Manual) Monocytes # (Manual) Eosinophils # (Manual) INR D-Dimer ABG pH POC ABG pCO2 POC ABG pO2 ABG pO2 ABG HCO3 ABG O2 Saturation ABG Base Excess ABG Hemoglobin ABG Oxyhemoglobin ABG Sodium ABG Potassium ABG Chloride ABG Glucose Oxyhemoglobin Carboxyhemoglobin Sodium Potassium Chloride Carbon Dioxide BUN Creatinine Glucose POC Glucose 123 H 121 H 112 H Hemoglobin A1c Lactic Acid Calcium Phosphorus Magnesium Ferritin Total Bilirubin AST ALT Lactate Dehydrogenase C-Reactive Protein Albumin Triglycerides Arterial Blood Glucose Arterial Blood Ionized Calcium Urine Creatinine Coronavirus (PCR) Crossmatch 03/01/21 03/01/21 03/01/21 03:29 06:00 06:17 WBC RBC Hgb Hct MCV MCH MCHC RDW Plt Count Lymph % (Auto) Lymph # (Auto) Seg Neutrophils % Seg Neuts % (Manual) Lymphocytes % (Manual) Monocytes % (Manual) Nucleated RBC % Seg Neutrophils # Seg Neutrophils # Man Lymphocytes # (Manual) Monocytes # (Manual) Eosinophils # (Manual) INR D-Dimer ABG pH POC ABG pCO2 52.3 H POC ABG pO2 115.1 H ABG pO2 ABG HCO3 ABG O2 Saturation ABG Base Excess ABG Hemoglobin 7.5 L ABG Oxyhemoglobin ABG Sodium 135.6 L ABG Potassium ABG Chloride ABG Glucose 117 H Oxyhemoglobin Carboxyhemoglobin 1.6 H Sodium Potassium Chloride Carbon Dioxide BUN 78 H Creatinine 3.6 H Glucose 110 H POC Glucose 121 H Hemoglobin A1c Lactic Acid Calcium 8.0 L Phosphorus Magnesium Ferritin Total Bilirubin AST ALT Lactate Dehydrogenase C-Reactive Protein Albumin Triglycerides Arterial Blood Glucose 117 H Arterial Blood Ionized Calcium Urine Creatinine Coronavirus (PCR) Crossmatch 03/01/21 03/02/21 03/02/21 23:22 04:43 05:46 WBC RBC Hgb Hct MCV MCH MCHC RDW Plt Count Lymph % (Auto) Lymph # (Auto) Seg Neutrophils % Seg Neuts % (Manual) Lymphocytes % (Manual) Monocytes % (Manual) Nucleated RBC % Seg Neutrophils # Seg Neutrophils # Man Lymphocytes # (Manual) Monocytes # (Manual) Eosinophils # (Manual) INR D-Dimer ABG pH POC ABG pCO2 POC ABG pO2 ABG pO2 ABG HCO3 ABG O2 Saturation ABG Base Excess ABG Hemoglobin ABG Oxyhemoglobin ABG Sodium ABG Potassium ABG Chloride ABG Glucose Oxyhemoglobin Carboxyhemoglobin Sodium Potassium Chloride Carbon Dioxide BUN 89 H Creatinine 3.6 H Glucose 116 H POC Glucose 116 H 126 H Hemoglobin A1c Lactic Acid Calcium 7.7 L Phosphorus Magnesium Ferritin Total Bilirubin AST ALT Lactate Dehydrogenase C-Reactive Protein Albumin Triglycerides Arterial Blood Glucose Arterial Blood Ionized Calcium Urine Creatinine Coronavirus (PCR) Crossmatch 03/02/21 03/02/21 03/02/21 11:35 15:17 17:50 WBC RBC 2.15 L Hgb 7.1 L Hct 20.4 L MCV 95 H MCH 33 H MCHC 35 H RDW 17.6 H Plt Count Lymph % (Auto) Lymph # (Auto) Seg Neutrophils % Seg Neuts % (Manual) Lymphocytes % (Manual) Monocytes % (Manual) Nucleated RBC % Seg Neutrophils # Seg Neutrophils # Man Lymphocytes # (Manual) Monocytes # (Manual) Eosinophils # (Manual) INR D-Dimer ABG pH POC ABG pCO2 POC ABG pO2 ABG pO2 ABG HCO3 ABG O2 Saturation ABG Base Excess ABG Hemoglobin ABG Oxyhemoglobin ABG Sodium ABG Potassium ABG Chloride ABG Glucose Oxyhemoglobin Carboxyhemoglobin Sodium Potassium Chloride Carbon Dioxide BUN Creatinine Glucose POC Glucose 117 H 131 H Hemoglobin A1c Lactic Acid Calcium Phosphorus Magnesium Ferritin Total Bilirubin AST ALT Lactate Dehydrogenase C-Reactive Protein Albumin Triglycerides Arterial Blood Glucose Arterial Blood Ionized Calcium Urine Creatinine Coronavirus (PCR) Crossmatch 03/02/21 03/02/21 03/03/21 23:26 Unknown 03:50 WBC RBC Hgb Hct MCV MCH MCHC RDW Plt Count Lymph % (Auto) Lymph # (Auto) Seg Neutrophils % Seg Neuts % (Manual) Lymphocytes % (Manual) Monocytes % (Manual) Nucleated RBC % Seg Neutrophils # Seg Neutrophils # Man Lymphocytes # (Manual) Monocytes # (Manual) Eosinophils # (Manual) INR D-Dimer ABG pH 7.282 L 7.276 L POC ABG pCO2 POC ABG pO2 ABG pO2 150.8 H ABG HCO3 30.1 H 31.7 H ABG O2 Saturation ABG Base Excess 4.3 H ABG Hemoglobin 6.9 L 6.7 L ABG Oxyhemoglobin ABG Sodium ABG Potassium ABG Chloride ABG Glucose Oxyhemoglobin 93.5 L Carboxyhemoglobin Sodium Potassium Chloride Carbon Dioxide BUN Creatinine Glucose POC Glucose 143 H Hemoglobin A1c Lactic Acid Calcium Phosphorus Magnesium Ferritin Total Bilirubin AST ALT Lactate Dehydrogenase C-Reactive Protein Albumin Triglycerides Arterial Blood Glucose Arterial Blood Ionized Calcium Urine Creatinine Coronavirus (PCR) Crossmatch 03/03/21 03/03/21 03/03/21 05:46 Unknown Unknown WBC 12.4 H RBC 2.26 L Hgb 6.8 L Hct 21.8 L MCV 96 H MCH MCHC 31 L RDW 18.5 H Plt Count Lymph % (Auto) Lymph # (Auto) Seg Neutrophils % Seg Neuts % (Manual) Lymphocytes % (Manual) Monocytes % (Manual) Nucleated RBC % Seg Neutrophils # Seg Neutrophils # Man Lymphocytes # (Manual) Monocytes # (Manual) Eosinophils # (Manual) INR D-Dimer ABG pH POC ABG pCO2 POC ABG pO2 ABG pO2 ABG HCO3 ABG O2 Saturation ABG Base Excess ABG Hemoglobin ABG Oxyhemoglobin ABG Sodium ABG Potassium ABG Chloride ABG Glucose Oxyhemoglobin Carboxyhemoglobin Sodium Potassium Chloride Carbon Dioxide BUN 70 H Creatinine 2.6 H Glucose 118 H POC Glucose 107 H Hemoglobin A1c Lactic Acid Calcium Phosphorus Magnesium Ferritin Total Bilirubin AST ALT Lactate Dehydrogenase C-Reactive Protein Albumin Triglycerides Arterial Blood Glucose Arterial Blood Ionized Calcium Urine Creatinine Coronavirus (PCR) Crossmatch 03/03/21 Unknown WBC RBC Hgb Hct MCV MCH MCHC RDW Plt Count Lymph % (Auto) Lymph # (Auto) Seg Neutrophils % Seg Neuts % (Manual) Lymphocytes % (Manual) Monocytes % (Manual) Nucleated RBC % Seg Neutrophils # Seg Neutrophils # Man Lymphocytes # (Manual) Monocytes # (Manual) Eosinophils # (Manual) INR 1.15 H D-Dimer ABG pH POC ABG pCO2 POC ABG pO2 ABG pO2 ABG HCO3 ABG O2 Saturation ABG Base Excess ABG Hemoglobin ABG Oxyhemoglobin ABG Sodium ABG Potassium ABG Chloride ABG Glucose Oxyhemoglobin Carboxyhemoglobin Sodium Potassium Chloride Carbon Dioxide BUN Creatinine Glucose POC Glucose Hemoglobin A1c Lactic Acid Calcium Phosphorus Magnesium Ferritin Total Bilirubin AST ALT Lactate Dehydrogenase C-Reactive Protein Albumin Triglycerides Arterial Blood Glucose Arterial Blood Ionized Calcium Urine Creatinine Coronavirus (PCR) Crossmatch
[2021-03-03] MEDS: dexmedeTOMIDine 1,000 MCG in SODIUM CHLORIDE 0.9% 250ML 250 ML IV SCH ×2 (09:57→18:20)
[2021-03-03] MEDS: NEOMY 3.5 MG/BACIT 400 UNITS/POLY B 5000 UNITS/GM OINT PACKET TP SCH ×3 (10:03→20:36)
[2021-03-03] MEDS: SENNOSIDES/DOCUSATE SODIUM 8.6/50 MG TAB PO SCH ×2 (10:03→22:37)
[2021-03-03] MEDS: LANSOPRAZOLE 30 MG SOLUTAB FEEDTUBE SCH (10:04)
--- NOTE | 2021-03-03 12:04 | Event Note ---
Date: 03/03/21 Coronavirus testing machine broken and is being repaired. Currently, COVID tests are being sent out. No results back. Cancel permcath today. Awaiting covid test. If covid test comes back positive, will need ID evaluation to see if they believe patient is still infectious or no longer infectious. If negative, plan for permcath the next day.
--- NOTE | 2021-03-03 12:16 | Progress Note ---
Assessment and Plan Acute Hypoxic respiratory failure COVID-19 PNA Severe sepsis with septic shock Acute kidney injury secondary to ATN Hyperkalemia Hypernatremia DM2 on insulin Anemia Plan: no indication for HD tofday Initiated on HD on 02/03/21 S/P Right IJ Trialysis dialysis catheter placement by Dr Reddy. Dr Mauricio on bard for permcath placement Strict I&O's monitoring Renally dose medications Assess dialysis needs daily Monitor for renal recovery Subjective Date of service: 03/03/21 Principal diagnosis: DEISI Interval history: on the vent Objective - Vital Signs Vital signs: Vital Signs - 12hr 03/03/21 03/03/21 03/03/21 00:31 00:45 01:01 Temperature Pulse Rate 97 H 97 H 96 H Pulse Rate [ From Monitor] Respiratory 17 19 19 Rate Blood Pressure 119/66 119/66 119/66 O2 Sat by Pulse 93 93 93 Oximetry 03/03/21 03/03/21 03/03/21 01:15 01:31 01:45 Temperature Pulse Rate 97 H 98 H 97 H Pulse Rate [ From Monitor] Respiratory 18 19 20 Rate Blood Pressure 119/66 119/66 119/66 O2 Sat by Pulse 94 94 94 Oximetry 03/03/21 03/03/21 03/03/21 02:01 02:15 02:31 Temperature Pulse Rate 98 H 96 H 94 H Pulse Rate [ From Monitor] Respiratory 19 35 H 18 Rate Blood Pressure 119/66 119/66 119/66 O2 Sat by Pulse 94 95 95 Oximetry 03/03/21 03/03/21 03/03/21 02:45 03:01 03:15 Temperature Pulse Rate 94 H 94 H 95 H Pulse Rate [ From Monitor] Respiratory 21 18 19 Rate Blood Pressure 119/66 119/66 119/66 O2 Sat by Pulse 95 94 94 Oximetry 03/03/21 03/03/21 03/03/21 03:31 03:38 03:45 Temperature 99.2 F Pulse Rate 93 H 92 H Pulse Rate [ From Monitor] Respiratory 18 18 Rate Blood Pressure 119/66 119/66 O2 Sat by Pulse 95 95 Oximetry 03/03/21 03/03/21 03/03/21 04:00 04:01 04:15 Temperature Pulse Rate 93 H 92 H 93 H Pulse Rate [ 95 H From Monitor] Respiratory 24 18 19 Rate Blood Pressure 119/66 119/66 O2 Sat by Pulse 96 96 95 Oximetry 03/03/21 03/03/21 03/03/21 04:25 04:31 04:45 Temperature Pulse Rate 92 H 88 Pulse Rate [ From Monitor] Respiratory 23 Rate Blood Pressure 119/66 119/66 119/66 O2 Sat by Pulse 95 97 92 Oximetry 03/03/21 03/03/21 03/03/21 05:01 05:15 05:31 Temperature Pulse Rate 100 H 99 H 97 H Pulse Rate [ From Monitor] Respiratory 11 L 39 H 39 H Rate Blood Pressure 119/66 108/59 108/59 O2 Sat by Pulse 96 96 Oximetry 03/03/21 03/03/21 03/03/21 05:45 06:01 06:15 Temperature Pulse Rate 97 H 94 H 92 H Pulse Rate [ From Monitor] Respiratory 37 H 37 H 38 H Rate Blood Pressure 108/59 108/59 108/59 O2 Sat by Pulse 96 96 96 Oximetry 03/03/21 03/03/21 03/03/21 06:31 06:45 07:01 Temperature Pulse Rate 94 H 95 H 95 H Pulse Rate [ From Monitor] Respiratory 35 H 21 33 H Rate Blood Pressure 108/59 108/59 108/54 O2 Sat by Pulse 95 94 92 Oximetry 03/03/21 03/03/21 03/03/21 07:15 07:31 07:45 Temperature Pulse Rate 96 H 92 H 91 H Pulse Rate [ From Monitor] Respiratory 38 H 35 H 38 H Rate Blood Pressure 108/54 108/54 108/54 O2 Sat by Pulse 94 95 94 Oximetry 03/03/21 03/03/21 03/03/21 08:00 08:01 08:15 Temperature 98.6 F Pulse Rate 87 86 Pulse Rate [ From Monitor] Respiratory 33 H 38 H Rate Blood Pressure 108/54 108/54 O2 Sat by Pulse 96 95 Oximetry 03/03/21 03/03/21 03/03/21 08:31 08:45 09:01 Temperature Pulse Rate 90 94 H 98 H Pulse Rate [ From Monitor] Respiratory 22 18 33 H Rate Blood Pressure 108/54 108/54 108/54 O2 Sat by Pulse 95 96 95 Oximetry 03/03/21 03/03/21 03/03/21 09:15 09:31 09:45 Temperature Pulse Rate 102 H 103 H 105 H Pulse Rate [ From Monitor] Respiratory 21 25 H 24 Rate Blood Pressure 108/54 108/54 108/54 O2 Sat by Pulse 96 97 97 Oximetry 03/03/21 03/03/21 03/03/21 10:01 10:11 10:15 Temperature Pulse Rate 107 H 107 H 105 H Pulse Rate [ From Monitor] Respiratory 17 19 Rate Blood Pressure 108/54 108/54 108/54 O2 Sat by Pulse 96 96 96 Oximetry - General Appearance General appearance: sedated on ventilator EENT: ATNC, PERRL, mucous membranes dry Cardiology: tachycardia - Lab 03/03/21 Unknown 03/03/21 Unknown Most recent lab results ABG pH 7.276 pH Units (7.350-7.450) L 03/03/21 03:50 ABG pCO2 69.7 mm Hg 03/03/21 03:50 ABG pO2 85.8 mm Hg (80.0-90.0) 03/03/21 03:50 ABG HCO3 31.7 mmol/L (20.0-26.0) H 03/03/21 03:50 ABG O2 Saturation 96.4 % (95.0-99.0) 03/03/21 03:50 Calcium 8.5 mg/dL (8.4-10.2) 03/03/21 Unknown Phosphorus 7.90 mg/dL (2.5-4.5) H 02/21/21 16:35 Magnesium 2.60 mg/dL (1.7-2.3) H 02/21/21 16:35 Urine Creatinine 53.0 mg/dL (0.1-20.0) H 01/30/21 12:00 Urine Sodium 28 mmol/L 01/22/21 22:39 Medications & Allergies - Medications Allergies/Adverse Reactions: Allergies No Known Allergies Allergy (Unverified 03/12/20 13:41) Home Medications: Home Medications Medication Instructions Recorded Confirmed Last Taken Type Insulin NPH/Regular [Novolin 70/30] 18 unit SUB-Q TIDAC #1 vial 03/12/20 03/02/21 Unknown Rx Syringe-Needle,Insulin,0.5 ml 1 box MC TID #1 box 03/12/20 03/02/21 Unknown Rx [Insulin Syringe/Needle 0.5 ML] Active Medications: Generic Name Dose Route Start Last Admin Trade Name Freq PRN Reason Stop Dose Admin Acetaminophen 650 mg 01/24/21 12:58 04/28/21 13:31 Acetaminophen 325 Mg/10.15 Ml Oral Liqd Unit Dose FEEDTUBE 650 mg Q6H PRN Administration Pain, Mild (1-3) Lipase/Protease/Amylase 1 each 01/26/21 14:25 Lipase 10,500/Protease 25,000/Amylase 43,750 (Units) Dr Cap FEEDTUBE PRN PRN For Clogged Feeding Tube Dextrose 50 ml 01/27/21 07:24 Dextrose 50% In Water (25gm) 50 Ml Syringe IV Q30MIN PRN Hypoglycemia Protocol Fentanyl 50 mcg 01/22/21 22:39 02/25/21 10:25 Fentanyl 100 Mcg/2 Ml Inj IV 50 mcg Q10MIN PRN Administration ANALGESIA Heparin Sodium (Porcine) 2,000 unit 02/11/21 09:38 02/21/21 21:25 Heparin 10,000 Units/10 Ml Vial IV 2,000 unit SAGR[place]IO PRN Administration hemodialysis Heparin Sodium (Porcine) 5,000 unit 02/19/21 14:00 03/03/21 07:14 Heparin 5,000 Unit/1 Ml Vial SUB-Q 5,000 unit Q8HR CECE Administration Fentanyl Citrate 2,000 mcg in 100 mls @ 6.124 mls/hr 01/22/21 23:00 03/03/21 10:00 Fentanyl Drip Premix IV 2 mcg/kg/hr TITR CECE 12.247 mls/hr Administration Protocol 1 MCG/KG/HR Propofol 1,000 mg in 100 mls @ 3.674 mls/hr 01/22/21 23:45 02/21/21 08:30 Diprivan 10 Mg/Ml IV 0 mcg/kg/min TITR CECE 0 mls/hr Titration Protocol 5 MCG/KG/MIN Norepinephrine 4 mg in 250 mls @ 7.5 mls/hr 01/28/21 14:00 02/22/21 18:27 Levophed Drip 4 Mg/Ns 250 Ml IV 0 mcg/min TITR CECE 0 mls/hr Titration Protocol 2 MCG/MIN Dexmedetomidine HCl 1,000 mcg/ 260 mls @ 6.368 mls/hr 01/30/21 20:00 03/03/21 09:57 Sodium Chloride IV 0.9 mcg/kg/hr TITRATE CECE 28.658 mls/hr Administration Protocol 0.2 MCG/KG/HR Sodium Chloride 100 mls @ 999 mls/hr 02/27/21 11:00 Nacl 0.9% IV SAGR[place]IO PRN Hypotension Sodium Chloride 500 mls @ 0 mls/hr 03/03/21 08:11 Nacl 0.9% 500 Ml IV 03/03/21 23:59 ONCE NR As Directed Lansoprazole 30 mg 02/18/21 10:00 03/03/21 10:04 Lansoprazole 30 Mg Solutab FEEDTUBE 30 mg QDAY CECE Administration Neomycin/Polymyxin/Bacitracin 1 applic 03/02/21 15:00 03/03/21 10:03 Neomy 3.5 Mg/Bacit 400 Units/Poly B 5000 Units/Gm Oint Packet TP 1 applic TID CECE Administration Senna/Docusate Sodium 1 tab 02/25/21 10:00 03/03/21 10:03 Sennosides/Docusate Sodium 8.6/50 Mg Tab PO 1 tab BID CECE Administration Simple Syrup 15 ml 01/26/21 14:25 02/21/21 21:24 Simple Syrup 15 Ml FEEDTUBE 15 ml PRN PRN Administration Hypoglycemia Simple Syrup 30 ml 01/26/21 14:25 Simple Syrup 15 Ml FEEDTUBE PRN PRN Hypoglycemia Sodium Bicarbonate 325 mg 01/26/21 14:25 Sodium Bicarbonate 325 Mg Tab FEEDTUBE PRN PRN For Clogged Feeding Tube
--- NOTE | 2021-03-03 13:55 | Progress Note ---
Assessment and Plan Assessment and plan: This is a 60-year-old male with diabetes mellitus, hypertension, hyperlipidemia, chronic renal insufficiency who was admitted on 01/23 as a COVID-19 PUI with Sepsis, COVID-19 pneumonia, coag negative staph bacteremia, acute hypoxic respiratory failure, and acute kidney injury. Sepsis COVID-19 pneumonia Coag-neg Staph bacteremia Acute hypoxic respiratory failure Acute kidney injury, HD initiated 02/03 Anemia Diabetes mellitus Hypertension Hyperlipidemia Chronic renal insufficiency Elevated D-dimer Penile ulceration -[facility], nephrology, infectious disease, GI , vascular surgery, urology neurology consulted, appreciate recommendations -s/p Antibiotic therapy, remdesivir, Steroid therapy -COVID-19 PCR positive, Pneumonia on CXR -Mechanical ventilation, wean as tolerated -VAP bundle -HD per nephrology -S/p 4 units PRBC during stay -Trend BMP, CBC, COVID-19 inflammatory markers -Bilateral lower extremity and upper extremity Doppler ultrasound negative for DVT/SVT -SSI and Long-acting insulin -Accu-Cheks every 6 while on tube feedings -Hold home antihypertensive regimen and resume when appropriate -S/p vasopressor support -Blood pressure monitoring per protocol -S/p NaHCO3 gtt -02/17 CT head showed no acute intracranial abnormality, paranasal sinus disease -Bowel regimen -02/24 EEG finding consistent with encephalopathy and/or drug effect, possibility of toxic metabolic etiology cannot be excluded, possibility of structural lesion on the left side cannot be excluded given left being slightly slower than the right. -Neosporin twice daily to penile shaft ulcer -01/23, 02/18, 03/02 COVID-19 PCR positive DVT/GI prophylaxis: SCDs to bilateral lower extremities while in bed, PPI, heparin subq Dispo: ICU The high probability of a clinically significant, sudden or life threatening deterioration of the [multi] system(s) required my full and direct attention, intervention and personal management. The aggregate critical care time was [35] minutes. This time is in addition to time spent performing reported procedures but includes the following: [x] Data Review and interpretation [x] Patient assessment and monitoring of vital signs [x] Documentation [x] Medication orders and management History Interval history: This is a 60-year-old male with diabetes mellitus, hypertension, hyperlipidemia, chronic renal insufficiency presents to the emergency department on 01/23 with shortness of breath, fevers chills, loss of smell and taste and body aches for the past 3 days via EMS. Per EMS patient's oxygen saturation on room air was 50% and after being placed on nonrebreather it increased 75%. Upon arrival to the emergency department patient was being bagged by EMS. In the emergency room patient was intubated due to severe hypoxia, increased work of breathing and lethargy. Patient was sedated on propofol and fentanyl. Patient presented with fever, tachycardia, tachypnea and acute hypoxic respiratory failure with PNA on CXR meeting Sepsis criteria. Lab work in the emergency department revealed hyponatremia, hypokalemia, hypochloremia, elevated CR/BUN and CXR showed bilateral pneumonia. Patient was admitted to the hospital service as a COVID-19 PUI with consults to infectious disease, nephrology and critical care medicine. 01/24/2021: Patient is intubated and sedated, patient is positive for COVID-19 infection. ID was consulted and put on dexamethasone and remdesivir. Patient has DEISI and nephrology is following. Creatinine stable, patient is urinating. Discussed with nephrology and he is okay with remdesivir. Pulmonary critical care is following for his vent setting. PEEP of 8 and FiO2 of 85%. Patient was alert and off sedatives. 01/25/2021; patient is intubated and on mechanical ventilation. Continue with tr eatment of Covid. Nephrology and ID is following. Pulmonary is following for vent management 01/26: Remains on mechanical ventilation and [facility] increased his PEEP. [facility] has ordered Precedex for sedation. Possibly need to prone this p.m. No acute events reported overnight. This morning his D-dimer is greater than 10,000 and we have started him on Lovenox 120 mg daily. Nutrition has been consulted for initiation of tube feedings. Patient remains sedated on propofol 40 and fentanyl for the time my examination this morning. 01/27: Continue Lovenox, remdesivir and empiric antibiotics. Patient had a T-max of 101 overnight. The time of examination patient is on CMV 500/18/14/0.61. Kidney function slightly worsened. Sedated on fentanyl ground-level fall and Precedex. Nephrology has increased IV fluids to 100 ml/hr. Continue to trend BMP and CBC. Sedation vacation attempt by RN this AM. 01/28: Patient completed antibiotics today [facility] will paralyze patient and increase sedation. PICC line ordered for possible vasopressor therapy need. Patient's D-dimer remains greater than 10,000 and he still has hyperchloremia. Patient's kidney function has improved today. May need to prone the patient if no improvement in oxygenation is noted in the next 24 hours. The time of my examination patient is sedated with propofol, fentanyl and Precedex and is on assist control 500/18/16/0.80 hypoxic on ABG on 60% FiO2. 01/29: Patient was started on Nimbex yesterday and his ABG this morning showed respiratory acidosis with hypercapnia and his respiratory rate was increased. We will obtain a repeat ABG this afternoon. This morning patient is hypernatremic, hyperkalemic and hyperchloremic. His potassium has been corrected with the management and will obtain repeat BMP tomorrow. His kidney functions have remained stable and we will await nephrology's input. No acute events reported overnight. This morning the time my examination patient sedated with propofol, Precedex and fentanyl and paralyzed with Nimbex. He is on assist control 500/24/16 0.80. 01/30: This morning patient is hypokalemic again and was given Kayexalate. Patient has hypernatremia and hyper chloremia and his renal function is slightly worse after receiving Lasix yesterday. His D-dimer remains greater than 10,000 and he is still on a paralytic. Patient is sedated on Precedex, fentanyl, propofol. Mechanical ventilation settings seven-point 2/69/61/28. [facility] has decided to continue paralytics for 48 more hours and will attempt proning the patient. Increased free water flushes 300 cc every 4 hours. Patient states has restarted his antibiotics cefepime and vancomycin and recultured. 01/31/21 Hyperkalemia, Treated 02/01/21 Hyperkalemia, Treated 02/02: Patient's kidney function continues to worsen and a stat BMP this morning shows BUN/creatinine 20/6.1 and he remains hypocalcemic and hypernatremic, hypokalemic and hypochloremic. Patient received 2 g of calcium gluconate and Kayexalate and his repeat potassium was 4.3 this afternoon. He remains antibiotic therapy and steroids. Nephrology has placed the patient on bicarb drip given metabolic acidosis and has decided to hold off hemodialysis till tomorrow.The time my examination patient is sedated on fentanyl, Precedex and on assist control 500/20/12/0.70. s/p paralytic. 02/03: Today patient's ABG shows respiratory acidosis however it is improving, hy pernatremia, hyperchloremia, metabolic acidosis on BMP, worsening kidney function BUN/creatinine 130/9.2 with hyperphosphatemia. Patient received a Vas- Cath to his right IJ for initiation of dialysis. At the time of my examination patient remains sedated on fentanyl, propofol and Precedex with vasopressor support with Levophed at 2. 02/04: At the time of examination patient was on assist control tidal volume 500, rate 40, PEEP of 12, FiO2 85%. Patient had a T-max of 100.9 and infectious disease has stopped his vancomycin given negative MRSA. This afternoon patient respiked his temperature and was pancultured again. Patient was started on hemodialysis yesterday and will receive HD again today. Patient is sedated on Precedex, propofol, fentanyl and remains on Levophed. He is on assist control tidal volume 500, rate of 30, PEEP of 12, FiO2 of 85%. Patient still has some respiratory acidosis however his hypernatremia and hyperchloremia have improved and his metabolic acidosis has resolved. Patient will receive hemodialysis today 02/05: Patient continues to have low-grade fever temp this morning time examination he was on assist control tidal volume 500, and sedated on propofol/f entanyl/Precedex and is on Levophed. Hemodialysis per nephrology. Antibiotics per ID. Patient's blood culture from 02/04 grew gram-positive cocci in clusters in 1/2 bottles and he was started on vancomycin. 02/06: Patients ABG showed respiratory acidosis and the tracings were changed however a repeat ABG showed showed acidosis.[facility] will start a bicarb drip after giving 2 amps of bicarb push. Yesterday patient blood cultures grew gram- positive cocci and he was started on vancomycin. At the time my examination patient was on assist control tidal volume 550, rate 34, PEEP 16, FiO2 90% and sedated on fentanyl, Precedex, propofol elevated pressure support with Levophed. Bilateral lower extremity Doppler ultrasounds done yesterday showed no evidence of DVT/SVT. 02/07/2021; patient is still on the vent with PEEP of 16 and FiO2 of 90%, sedated with fentanyl Precedex and propofol. Patient still requiring Levophed. Patient was sedated yesterday and was given bicarb push. Blood culture grew gram-positive cocci in clusters and he is on vancomycin, will follow identification. 02/08/2021;patient is still on the vent with PEEP of 16 and FiO2 of 90%, sedated with fentanyl Precedex and propofol. Patient still requiring Levophed. Patient was sedated yesterday and was given bicarb push. Blood culture grew gram- positive cocci in clusters and he is on vancomycin, will follow identification. Patient is currently on dialysis. Patient is anemic transfuse if hemoglobin is below 7. 02/09: This morning patient has slight hypokalemia, hypochorlemia, hyponatremia and metabolic alkalosis. [facility] will continue bicarb gtt given that the patient does not have HD access at this time. We will replete the potassium and recheck BMP in the AM. We will type and cross in anticipation of PRBC transfusion. This morning he is sedated on Ativan, fentayl, and precedex. Will obtain a triglyceride level today in hopes to resume propofol. Patient is alkalotic and BMP however we will continue with bicarb drip per [facility] given that the patient does not have any access for hemodialysis. Anticipate replacing hemodialysis catheter tomorrow or Tuesday. The time my examination he is on AC TV 550, Rate 34, PeeP 16, FiO2 .65. 02/10: A.m. labs still pending, [facility] plans to replace HD catheter tomorrow as the patient is still febrile however his fever curve is trending down, remains on a bicarb drip and on vancomycin. Today at the time my examination patient was sedated on Precedex, Ativan and fentanyl and he is on assist control tidal 11/04/1951, rate 34, PEEP 16, FiO2 65%. Overnight patient was hypotensive and received 1 dose of midodrine. 02/11: Patient is still having low-grade temperatures that we will obtain a bilateral lower upper extremity venous Doppler ultrasound given that his repeat cultures have been negative so far. Patient received a Vas-Cath today for hemodialysis. The time examination patient is on assist control tidal volume 550, rate of 34, PEEP of 16 and FiO2 of 75%. Patient was hypokalemic and anemic yesterday which were both repleted with potassium and 1 unit PRBC. 02/12: 02/12: Patient had a 12-second run of V. tach today, his potassium and magnesium were low which was repleted. Renal adjusted potassium bath. We will obtain a triglyceride level in hopes to restarting to prevent as needed. This morning at the time my examination patient was sedated on fentanyl, Ativan and Precedex and remained on a bicarb drip. He was on assist control tidal volume 550, rate 34, PEEP 16, FiO2 85%. We will obtain a occult stool given no evident source of bleeding and need for transfusion. Anemia possibly due to hemodialysis. 02/13: Patient's T-max was 100.7, remains on fentanyl, Ativan, Precedex and bicarb drip this morning at some examination on assist control tidal volume 550, rate 34, PEEP 16 and FiO2 85%. On the labs this morning is slightly hypokalemic and remains metabolic alkalotic on BMP. His occult was positive. His Lovenox and consult GI. Patient received hemodialysis today. 02/14: cont PPI, GI recommended to scope now, monitor clinically, tolerating TF, remains intubated. Hb 6.9 today - transfuse another unit. very poor prognosis. 02/15: H&H appears to be stable following 1 unit of transfusion yesterday. Continue to hold heparin and aspirin products. Continue to monitor clinically. Poor prognosis. Wean off from vent as tolerated. 02/16: Infectious disease has signed off, his Ativan drip was discontinued and to prevent drip will be started when patient needs it. T-max 100.6 yesterday afternoon. He received hemodialysis today and at the time my examination was still on mechanical ventilation assist control tidal volume 550, rate 34, PEEP 16 on 70% FiO2. Patient was sedated on fentanyl dexamethasone and Ativan. No acute events reported overnight. 02/17: This morning patient was scheduled to get 2 units PRBC however his repeat H/H after 1 unit PRBC was 7.6/22.8 and the width of the second unit PRBC. This morning patient was sedated on fentanyl, propofol, Precedex and on assist control tolerated by 50, rate 34, PEEP of 16, FiO2 35%. Wound care was consulted today for his upper lip wound. Nephrology continues to withhold dialysis. No acute events reported overnight. Dr. Adkins was unable to contact family for updates. 02/18: Family updated by Dr. Adkins and Dr. Reddy. Patient had a hemodialysis today. The time my examination patient was on assist control tidal volume 550, rate 34, PEEP 16 and FiO2 35%. Overnight patient had a CT head and he was placed on 3% FiO2 and took "a long time to recover" per RN report. 02/19: Patient's D-dimer is trending up therefore he was started on prophylactic anticoagulation, no bowel movement for several days so he was started on mag citrate today. The time examination patient is sedated on Precedex 1.2, fentanyl 3, propofol 20 on assist control tidal volume 550, rate 34, PEEP 16, 80% FiO2 and on his ABG his PaO2 is 106. RT will try to wean as tolerated. Repeat COVID-19 PCR today was positive.Dr. Adkins updated the family today. 02/20: Patient received hemodialysis today. In the time my examination patient was sedated on Precedex, fentanyl, propofol and on assist control tidal line 550, rate 34, PEEP of 16 and 75% FiO2. Patient had a bowel movement yesterday. 02/21 no new concerns at this time afebrile Hospital course remains uncomplicated. 02/22. Hospital course complicated by an episode of ectopy over the p.m. Patient required Levophed for blood pressure control. Remains intubated sedated. Tolerated hemodialysis yesterday. 02/23: At the time my examination patient is on assist control tidal volume 550, rate 34, PEEP 16, FiO2 70% and is not sedated. Patient does not follow commands however his eyes open spontaneously and he does not track/focus. 02/24: Neurology consulted, EEG pending. No acute events reported overnight. Patient remains on hyperventilation totaling 550, rate 34, PEEP of 16 on 70% FiO2. Patient received hemodialysis yesterday. 02/25: EEG from 02/24 is suggestive of encephalopathy (toxic metabolic etiology cannot be excluded). This afternoon his peak pressures and and mean airway pressure is elevated so we obtained a CXR and ABG. Results were called to Dr. Masters. Patient received 2 mg of Versed was placed back on his sedation with fentanyl and Precedex. 02/26: Patient is on pressure ventilation FiO2 70%, Pressure inspiration 25, rate 34, PEEP 10 and sedated on fentanyl at 2mcgs and Precedex at 0.2. We will obtain a cxr for evaluation. Patient seems to be much more comfortable today. 02/27: CXr unchanged, at the time of my examination patient is on pressure control ventilation FiO2 70%, pressure support 26, rate 34 n.p.o. for 10 and sedated on fentanyl at 2 and Precedex at 0.1. His latest ABG 7.3, CO2 49, PO2 111, base excess 24. Patient is to receive hemodialysis today. No acute events reported overnight. Patient still not following commands. 02/28: Continue mechanical ventilation per pulmonary recommendations. Patient currently in AC mode ventilation rate 34, FiO2 70%, PEEP 15. 02/24 EEG finding consistent with encephalopathy and/or drug effect, possibility of toxic metabolic etiology cannot be excluded, possibility of structural lesion on the left side cannot be excluded given left being slightly slower than the right. Continue hemodialysis per nephrology. Currently with sedation of fentanyl and Precedex. Pulmonary plans for trach when ventilator settings allow. 03/01: Patient remains on mechanical ventilation AC mode, FiO2 70%, PEEP of 10. Hemodialysis initiated on 02/03/2021. Continue per nephrology. Patient will need tracheostomy once ventilator settings allow. Continue supportive care with tube feedings. Aspiration precautions. Patient appears to have penile ulceration and purulence. Consult urology for further evaluation. Prognosis remains guarded. 03/02: Tentative plan to place permacath tomorrow, patient will be n.p.o. after midnight and repeat COVID-19 PCR was ordered. Urology was consulted for a possible penile fistula. Patient received hemodialysis today. Today at the time of examination patient was on pressure control ventilation with a PEEP of 10 and FiO2 of 60 sedated on fentanyl and Precedex. 03/03: Patient noted to be anemic and ordered 1 unit of PRBC to be transfused, [facility] thinks patient has suffered from oxygen toxicity from prolonged time on high levels of oxygen (greater than 60%) for several weeks. The time my examination patient was on control ventilation and he remains off sedation. Hospitalist Physical - Constitutional Vitals: Temp Pulse Resp BP Pulse Ox 98.3 F 102 H 26 H 126/76 99 03/03/21 12:00 03/03/21 13:31 03/03/21 13:31 03/03/21 13:31 03/03/21 13:31 General appearance: Present: no acute distress, obese, other (on mechanical ventilation) - EENT Eyes: Present: PERRL - Neck Neck: Absent: masses or JVD, cervical LAD - Respiratory Respiratory effort: normal Respiratory: bilateral: diminished - Cardiovascular Rhythm: regular Heart Sounds: Present: S1 & S2. Absent: systolic murmur, diastolic murmur - Extremities Extremities: no ischemia, pulses intact, pulses symmetrical, normal temperature, normal color Extremity abnormal: edema Peripheral Pulses: within normal limits - Abdominal General gastrointestinal: soft, non-tender, non-distended, normal bowel sounds - Integumentary Integumentary: Present: clear, warm, dry - Psychiatric Psychiatric: other - Neurologic Neurologic: other (Opens eyes spontaneously, does not follow commands, does not track/focus, positive gag/cough reflex) - Allied Health Allied health notes reviewed: nursing, RT, social work HEART Score - HEART Score Risk factors: 1-2 risk factors Troponin: < normal limit - Critical Actions Critical Actions: 0-3 pts:0.9-1.7%risk of adverse cardiac event.Candidate for discharge Results - Labs CBC & Chem 7: 03/03/21 Unknown 03/03/21 Unknown Labs: Laboratory Last Values WBC 12.4 K/mm3 (4.5-11.0) H 03/03/21 Unknown RBC 2.26 M/mm3 (3.65-5.03) L 03/03/21 Unknown Hgb 6.8 gm/dl (11.8-15.2) L 03/03/21 Unknown Hct 21.8 % (35.5-45.6) L 03/03/21 Unknown MCV 96 fl (84-94) H 03/03/21 Unknown MCH 30 pg (28-32) 03/03/21 Unknown MCHC 31 % (32-34) L 03/03/21 Unknown RDW 18.5 % (13.2-15.2) H 03/03/21 Unknown Plt Count 358 K/mm3 (140-440) 03/03/21 Unknown Lymph % (Auto) 11.0 % (13.4-35.0) L 02/15/21 05:00 Stevens % (Auto) 4.2 % (0.0-7.3) 02/15/21 05:00 Eos % (Auto) 1.2 % (0.0-4.3) 02/15/21 05:00 Baso % (Auto) 0.6 % (0.0-1.8) 02/15/21 05:00 Lymph # (Auto) 1.1 K/mm3 (1.2-5.4) L 02/15/21 05:00 Stevens # (Auto) 0.4 K/mm3 (0.0-0.8) 02/15/21 05:00 Eos # (Auto) 0.1 K/mm3 (0.0-0.4) 02/15/21 05:00 Baso # (Auto) 0.1 K/mm3 (0.0-0.1) 02/15/21 05:00 Add Manual Diff Complete 02/24/21 04:25 Total Counted 100 02/24/21 04:25 Seg Neutrophils % 83.0 % (40.0-70.0) H 02/15/21 05:00 Seg Neuts % (Manual) 82.0 % (40.0-70.0) H 02/24/21 04:25 Band Neutrophils % 2.0 % 02/16/21 Unknown Lymphocytes % (Manual) 3.0 % (13.4-35.0) L 02/24/21 04:25 Reactive Lymphs % (Man) 1.0 % 01/27/21 05:29 Monocytes % (Manual) 11.0 % (0.0-7.3) H 02/24/21 04:25 Eosinophils % (Manual) 1.0 % (0.0-4.3) 02/24/21 04:25 Basophils % (Manual) 1.0 % (0.0-1.8) 02/24/21 04:25 Metamyelocytes % 2.0 % 02/24/21 04:25 Nucleated RBC % Not Reportable 02/24/21 04:25 Seg Neutrophils # 8.6 K/mm3 (1.8-7.7) H 02/15/21 05:00 Seg Neutrophils # Man 9.4 K/mm3 (1.8-7.7) H 02/24/21 04:25 Band Neutrophils # 0.0 K/mm3 02/24/21 04:25 Lymphocytes # (Manual) 0.3 K/mm3 (1.2-5.4) L 02/24/21 04:25 Abs React Lymphs (Man) 0.0 K/mm3 02/24/21 04:25 Monocytes # (Manual) 1.3 K/mm3 (0.0-0.8) H 02/24/21 04:25 Eosinophils # (Manual) 0.1 K/mm3 (0.0-0.4) 02/24/21 04:25 Basophils # (Manual) 0.1 K/mm3 (0.0-0.1) 02/24/21 04:25 Metamyelocytes # 0.2 K/mm3 02/24/21 04:25 Myelocytes # 0.0 K/mm3 02/24/21 04:25 Promyelocytes # 0.0 K/mm3 02/24/21 04:25 Blast Cells # 0.0 K/mm3 02/24/21 04:25 WBC Morphology Not Reportable 02/24/21 04:25 Hypersegmented Neuts Not Reportable 02/24/21 04:25 Hyposegmented Neuts Not Reportable 02/24/21 04:25 Hypogranular Neuts Not Reportable 02/24/21 04:25 Smudge Cells Not Reportable 02/24/21 04:25 Toxic Granulation Not Reportable 02/24/21 04:25 Toxic Vacuolation Not Reportable 02/24/21 04:25 Dohle Bodies Not Reportable 02/24/21 04:25 Pelger-Huet Anomaly Not Reportable 02/24/21 04:25 Fátima Rods Not Reportable 02/24/21 04:25 Platelet Estimate Consistent w auto 02/24/21 04:25 Clumped Platelets Not Reportable 02/24/21 04:25 Plt Clumps, EDTA Not Reportable 02/24/21 04:25 Large Platelets Not Reportable 02/24/21 04:25 Giant Platelets Not Reportable 02/24/21 04:25 Platelet Satelliting Not Reportable 02/24/21 04:25 Plt Morphology Comment Not Reportable 02/24/21 04:25 RBC Morphology Not Reportable 02/24/21 04:25 Dimorphic RBCs Not Reportable 02/24/21 04:25 Polychromasia Few 02/24/21 04:25 Hypochromasia Not Reportable 02/24/21 04:25 Poikilocytosis Not Reportable 02/24/21 04:25 Anisocytosis 1+ 02/24/21 04:25 Microcytosis Not Reportable 02/24/21 04:25 Macrocytosis Not Reportable 02/24/21 04:25 Spherocytes Not Reportable 02/24/21 04:25 Pappenheimer Bodies Not Reportable 02/24/21 04:25 Sickle Cells Not Reportable 02/24/21 04:25 Target Cells Not Reportable 02/24/21 04:25 Tear Drop Cells Not Reportable 02/24/21 04:25 Ovalocytes Not Reportable 02/24/21 04:25 Helmet Cells Not Reportable 02/24/21 04:25 [place] Bodies Not Reportable 02/24/21 04:25 [place] Rings Not Reportable 02/24/21 04:25 [place] Cells Not Reportable 02/24/21 04:25 Bite Cells Not Reportable 02/24/21 04:25 Crenated Cell Not Reportable 02/24/21 04:25 Elliptocytes Not Reportable 02/24/21 04:25 Acanthocytes (Spur) Not Reportable 02/24/21 04:25 Rouleaux Not Reportable 02/24/21 04:25 Hemoglobin C Crystals Not Reportable 02/24/21 04:25 Schistocytes Not Reportable 02/24/21 04:25 Malaria parasites Not Reportable 02/24/21 04:25 [place] Bodies Not Reportable 02/24/21 04:25 Hem Pathologist Commnt No 02/24/21 04:25 PT 14.6 Sec. (12.2-14.9) 03/03/21 Unknown INR 1.15 (0.87-1.13) H 03/03/21 Unknown D-Dimer 6536.84 ng/mlDDU (0-234) H 02/25/21 09:03 ABG pH 7.276 pH Units (7.350-7.450) L 03/03/21 03:50 POC ABG pCO2 52.3 mmHg (32.0-48.0) H 03/01/21 03:29 ABG pCO2 69.7 mm Hg 03/03/21 03:50 POC ABG pO2 115.1 mmHg (83-108) H 03/01/21 03:29 ABG pO2 85.8 mm Hg (80.0-90.0) 03/03/21 03:50 POC ABG HCO3 26.8 03/01/21 03:29 ABG HCO3 31.7 mmol/L (20.0-26.0) H 03/03/21 03:50 ABG O2 Saturation 96.4 % (95.0-99.0) 03/03/21 03:50 ABG O2 Content 9.0 (0.0-44) 03/03/21 03:50 POC ABG Base Excess 0.6 03/01/21 03:29 ABG Base Excess 4.3 mmol/L (-2.0-3.0) H 03/03/21 03:50 ABG Hemoglobin 6.7 gm/dl (14.0-18.0) L 03/03/21 03:50 ABG Oxyhemoglobin 96.9 (94-98) 03/01/21 03:29 ABG Carboxyhemoglobin 2.4 % (0.0-5.0) 03/03/21 03:50 ABG Methemoglobin 0.6 % (0.0-1.5) 03/03/21 03:50 ABG Sodium 135.6 mmol/L (136.0-145.0) L 03/01/21 03:29 ABG Potassium 3.8 mmol/L (3.40-4.50) 03/01/21 03:29 ABG Chloride 101.0 mmol/L (98-107) 03/01/21 03:29 ABG Glucose 117 mg/dL (65-95) H 03/01/21 03:29 Oxyhemoglobin 93.5 % (95.0-99.0) L 03/03/21 03:50 Carboxyhemoglobin 1.6 (0.5-1.5) H 03/01/21 03:29 FiO2 55 % 03/03/21 03:50 FiO2 % 70.0 03/01/21 03:29 Sodium 142 mmol/L (137-145) 03/03/21 Unknown Potassium 3.9 mmol/L (3.6-5.0) 03/03/21 Unknown Chloride 102.5 mmol/L (98-107) 03/03/21 Unknown Carbon Dioxide 29 mmol/L (22-30) 03/03/21 Unknown Anion Gap 14 mmol/L 03/03/21 Unknown BUN 70 mg/dL (9-20) H 03/03/21 Unknown Creatinine 2.6 mg/dL (0.8-1.3) H 03/03/21 Unknown Estimated GFR 30 ml/min 03/03/21 Unknown BUN/Creatinine Ratio 27 % 03/03/21 Unknown Glucose 118 mg/dL (75-100) H 03/03/21 Unknown POC Glucose 105 mg/dL (70-105) 03/03/21 11:50 Hemoglobin A1c 6.3 % (4-6) H 02/02/21 16:00 Lactic Acid 1.90 mmol/L (0.7-2.0) 01/24/21 14:38 Calcium 8.5 mg/dL (8.4-10.2) 03/03/21 Unknown Phosphorus 7.90 mg/dL (2.5-4.5) H 02/21/21 16:35 Magnesium 2.60 mg/dL (1.7-2.3) H 02/21/21 16:35 Ferritin 867.8 ng/mL (30.0-300.0) H 02/26/21 05:48 Total Bilirubin 1.50 mg/dL (0.1-1.2) H 01/26/21 05:47 AST 37 units/L (5-40) 01/26/21 05:47 ALT 29 units/L (7-56) 01/26/21 05:47 Alkaline Phosphatase 70 units/L (35-129) 01/26/21 05:47 Lactate Dehydrogenase 345 units/L (91-180) H 02/19/21 05:45 C-Reactive Protein 5.90 mg/dL (0.00-1.30) H 02/26/21 05:48 Total Protein 7.2 g/dL (6.3-8.2) 01/26/21 05:47 Albumin 2.2 g/dL (3.9-5) L 01/26/21 05:47 Albumin/Globulin Ratio 0.4 % 01/26/21 05:47 Triglycerides 195 mg/dL (2-149) H 02/19/21 05:45 Procalcitonin 18.94 ng/mL (<0.15) 02/16/21 17:09 Arterial Blood Glucose 117 mg/dL (65-95) H 03/01/21 03:29 Arterial Blood Ionized Calcium 4.6 mg/dL (4.6-5.3) 03/01/21 03:29 Urine Color Nehal (Yellow) 01/22/21 22:39 Urine Turbidity Cloudy (Clear) 01/22/21 22:39 Urine pH 5.0 (5.0-7.0) 01/22/21 22:39 Ur Specific [place] 1.017 (1.003-1.030) 01/22/21 22:39 Urine Protein 100 mg/dl mg/dL (Negative) 01/22/21 22:39 Urine Glucose (UA) Neg mg/dL (Negative) 01/22/21 22:39 Urine Ketones Neg mg/dL (Negative) 01/22/21 22:39 Urine Blood Mod (Negative) 01/22/21 22:39 Urine Nitrite Neg (Negative) 01/22/21 22:39 Urine Bilirubin Neg (Negative) 01/22/21 22:39 Urine Urobilinogen 2.0 mg/dL (<2.0) 01/22/21 22:39 Ur Leukocyte Esterase Mod (Negative) 01/22/21 22:39 Urine WBC (Auto) < 1.0 /HPF (0.0-6.0) 01/22/21 22:39 Urine RBC (Auto) < 1.0 /HPF (0.0-6.0) 01/22/21 22:39 U Epithel Cells (Auto) < 1.0 /HPF (0-13.0) 01/22/21 22:39 Urine Osmolality 416 Mosm/kg 01/30/21 12:15 Urine Total Volume 2300 ml 01/30/21 12:00 Urine Creatinine 53.0 mg/dL (0.1-20.0) H 01/30/21 12:00 Ur Creatinine 24 Hour 1.2 (0.8-2.8) 01/30/21 12:00 Urine Sodium 28 mmol/L 01/22/21 22:39 Nasal Screen MRSA (PCR) Negative (Negative) 02/02/21 13:20 Random Vancomycin 13.7 ug/mL (0-40.0) 02/07/21 10:40 Coronavirus (PCR) Positive (Negative) A 02/18/21 10:00 Hepatitis A IgM Ab Non-reactive (NonReactive) 02/03/21 Unknown Hep Bs Antigen Non-reactive (Negative) 02/03/21 Unknown Hep B Core IgM Ab Non-reactive (NonReactive) 02/03/21 Unknown Hepatitis C Antibody Non-reactive (NonReactive) 02/03/21 Unknown Blood Type B POSITIVE 03/03/21 Unknown Antibody Screen Negative 03/03/21 Unknown Crossmatch See Detail 03/03/21 Unknown Black/IV: Voiding Method Incontinent Active Medications - Current Medications Current Medications: Generic Name Dose Route Start Last Admin Trade Name Freq PRN Reason Stop Dose Admin Acetaminophen 650 mg 01/24/21 12:58 02/25/21 13:31 Acetaminophen 325 Mg/10.15 Ml Oral Liqd Unit Dose FEEDTUBE 650 mg Q6H PRN Administration Pain, Mild (1-3) Lipase/Protease/Amylase 1 each 01/26/21 14:25 Lipase 10,500/Protease 25,000/Amylase 43,750 (Units) Dr Cap FEEDTUBE PRN PRN For Clogged Feeding Tube Dextrose 50 ml 01/27/21 07:24 Dextrose 50% In Water (25gm) 50 Ml Syringe IV Q30MIN PRN Hypoglycemia Protocol Fentanyl 50 mcg 01/22/21 22:39 02/25/21 10:25 Fentanyl 100 Mcg/2 Ml Inj IV 50 mcg Q10MIN PRN Administration ANALGESIA Heparin Sodium (Porcine) 2,000 unit 02/11/21 09:38 02/21/21 21:25 Heparin 10,000 Units/10 Ml Vial IV 2,000 unit SAGRARIO PRN Administration hemodialysis Heparin Sodium (Porcine) 5,000 unit 02/19/21 14:00 03/03/21 07:14 Heparin 5,000 Unit/1 Ml Vial SUB-Q 5,000 unit Q8HR CECE Administration Fentanyl Citrate 2,000 mcg in 100 mls @ 6.124 mls/hr 01/22/21 23:00 03/03/21 10:00 Fentanyl Drip Premix IV 2 mcg/kg/hr TITR CECE 12.247 mls/hr Administration Protocol 1 MCG/KG/HR Propofol 1,000 mg in 100 mls @ 3.674 mls/hr 01/22/21 23:45 02/21/21 08:30 Diprivan 10 Mg/Ml IV 0 mcg/kg/min TITR CECE 0 mls/hr Titration Protocol 5 MCG/KG/MIN Norepinephrine 4 mg in 250 mls @ 7.5 mls/hr 01/28/21 14:00 02/22/21 18:27 Levophed Drip 4 Mg/Ns 250 Ml IV 0 mcg/min TITR CECE 0 mls/hr Titration Protocol 2 MCG/MIN Dexmedetomidine HCl 1,000 mcg/ 260 mls @ 6.368 mls/hr 01/30/21 20:00 03/03/21 09:57 Sodium Chloride IV 0.9 mcg/kg/hr TITRATE CECE 28.658 mls/hr Administration Protocol 0.2 MCG/KG/HR Sodium Chloride 100 mls @ 999 mls/hr 02/27/21 11:00 Nacl 0.9% IV SAGRARIO PRN Hypotension Sodium Chloride 500 mls @ 0 mls/hr 03/03/21 08:11 Nacl 0.9% 500 Ml IV 03/03/21 23:59 ONCE NR As Directed Lansoprazole 30 mg 02/18/21 10:00 03/03/21 10:04 Lansoprazole 30 Mg Solutab FEEDTUBE 30 mg QDAY CECE Administration Neomycin/Polymyxin/Bacitracin 1 applic 03/02/21 15:00 03/03/21 10:03 Neomy 3.5 Mg/Bacit 400 Units/Poly B 5000 Units/Gm Oint Packet TP 1 applic TID CECE Administration Senna/Docusate Sodium 1 tab 02/25/21 10:00 03/03/21 10:03 Sennosides/Docusate Sodium 8.6/50 Mg Tab PO 1 tab BID CECE Administration Simple Syrup 15 ml 01/26/21 14:25 02/21/21 21:24 Simple Syrup 15 Ml FEEDTUBE 15 ml PRN PRN Administration Hypoglycemia Simple Syrup 30 ml 01/26/21 14:25 Simple Syrup 15 Ml FEEDTUBE PRN PRN Hypoglycemia Sodium Bicarbonate 325 mg 01/26/21 14:25 Sodium Bicarbonate 325 Mg Tab FEEDTUBE PRN PRN For Clogged Feeding Tube Nutrition/Malnutrition Assess - Dietary Evaluation Nutrition/Malnutrition Findings: Nutrition Notes Start: 01/26/21 13:59 Freq: Status: Active Protocol: Document 02/26/21 12:19 CW (Rec: 02/26/21 12:45 CW [id number]) Nutrition Notes Initial or Follow up Reassessment Current Diagnosis Acute Kidney Injury,Diabetes, Sepsis,Hypertension, Respiratory Failure, Hyperlipidemia Other Pertinent Diagnosis on HD, COVID-19 (+), bilat pneu Current Diet TF - Nepro at 46 ml/hr Labs/Tests BUN 72 Cr 4.5 Pertinent Medications [place] Height 5 ft 8 in Weight 99 kg [place] Body Weight (kg) 70.00 BMI 33.2 Weight change and time frame Some wt change likely r/t to HD. Weight Status Obese Subjective/Other Information TF continue to run at goal and is moderately tolerated. Pt remains on mechanical vent. Burn Absent Trauma Absent GI Symptoms Constipation Difficulty In Swallowing Skin Integrity/Comment pressure ulcer to lips Current % PO Negligible Minimum of two criteria No Fluid Accumulation Moderate to Severe (severe) #2 Nutrition Diagnosis Increased nutrient needs ( specify in comment below) Comments: protein Diagnosis Progress(for reassessment Continues documentation) #1 Nutrition Diagnosis Inadequate oral intake Diagnosis Progress(for reassessment Continues documentation) Is patient on ventilator? Yes Is Patient Ambulatory and/or Out of Bed No REE-([place]-St. Jeor-confined to bed) 2122.164 Kcal/Kg value to use for calculation 18 Approximate Energy Requirements Using 1782 kcal/Kg Calculation Used for Recommendations Kcal/kg Additional Notes Pro needs >1.2g/kg adjBW: > 115g/day for HD needs Fluid needs 500+ total output or per MD Nutrition Intervention Change Diet Order: Continue TF Nutrition Support: Nepro at 46 ml/hr with a free water flush of 200 ml q4h. Kcal 1,987 Protein (gm) 89 Fluid (mL) 803 Goal #1 TF tolerance Goal #2 TF to meet at least 75% energy and pro needs Anticipated Discharge Needs: unable to determine at this time Follow-Up By: 03/04/21 Additional Comments F/U for TF tolerance
--- NOTE | 2021-03-03 15:31 | Event Note ---
I called the patients sister Monica Hidalgo and she conferenced in Mitra Landa who is her daughter. I updated on current events including the repeat COVID 19 PCR, anemia and need to transfuse, wounds and they asked about FiO2. I did relay that we are very very slowly decrease his FiO2 but we do increase it if he does not tolerate. I did inform that he was placed on pressure controlled ventilation last week and placed on sedation. They did inquire about his urine output and asked about PO water intake. His sister also asked about visiting her brother. She states she was vaccinated in December. Informed her of the hospital policy regarding visitation with SELMA.
[2021-03-04] MEDS: fentaNYL DRIP Premix 2,000 MCG/100 ML BAG IV SCH ×3 (05:05→22:22)
[2021-03-04] MEDS: HEPARIN 5,000 UNIT/1 ML VIAL SUB-Q SCH ×3 (05:31→21:57)
[2021-03-04] MEDS: dexmedeTOMIDine 1,000 MCG in SODIUM CHLORIDE 0.9% 250ML 250 ML IV SCH ×2 (05:48→17:04)
[2021-03-04 06:39] LABS: Hemoglobin 7.7 gm/dl (11.8-15.2); Mean Corpuscular HGB Conc 32 % (32-34); Mean Corpuscular Volume 93 fl (84-94); Platelet Count 386 K/mm3 (140-440); Red Blood Count 2.58 M/mm3 (3.65-5.03)
[2021-03-04 06:40] LABS: Red Cell Distribution Width 20.3 % (13.2-15.2)
[2021-03-04 07:01] LABS: Calcium 8.2 mg/dL (8.4-10.2)
--- NOTE | 2021-03-04 09:32 | XRay Report ---
XR chest 1V ap INDICATION / CLINICAL INFORMATION: hypoxia. COMPARISON: 02/26/2021 FINDINGS: SUPPORT DEVICES: Unchanged. HEART /PULMONARY VASCULATURE: Unchanged. LUNGS / PLEURA: Moderate right pleural effusion and bilateral pulmonary airspace disease is unchanged . No pneumothorax. IMPRESSION: Stable chest Signer Name: Abdifatah Cabrera MD Signed: 03/04/2021 9:27 AM Workstation Name: [id number]
[2021-03-04] MEDS: NEOMY 3.5 MG/BACIT 400 UNITS/POLY B 5000 UNITS/GM OINT PACKET TP SCH ×3 (09:33→21:57)
[2021-03-04] MEDS: LANSOPRAZOLE 30 MG SOLUTAB FEEDTUBE SCH (09:33)
[2021-03-04] MEDS: SENNOSIDES/DOCUSATE SODIUM 8.6/50 MG TAB PO SCH ×2 (09:33→22:32)
--- NOTE | 2021-03-04 10:32 | Progress Note ---
Assessment and Plan 60 y/o male with ARDS secondary most likely to COVID 19 pneumonia. 03/04/21: Wean FiO2 for sats >88%. Will call family on tomorrow to give further updates and prep them for the possibility of the patient having to come home, maybe even on the vent. 03/03/21: Continue to wean FiO2 as tolerated. Would wean this first before weaning PEEP any further. Sedation only as needed but if placed back on continuous sedation, needs to have a holiday (break) every day. HD per renal. Transfusing 1 unit of PRBC's tomorrow. Unfortunately, mental status is going to be a large barrier for this patient. He likely has suffered some oxygen toxici ty from prolonged time on high levels of oxygen (greater 60%) for several weeks. Will attempt to have a family meeting regarding further care. Patient is not funded, will need HD long-term and likely will require trach for further weaning. Ultimately, if patient is able to leave the hospital, his only option would be to go home unless family could fund a facility on their own. Guarded prognosis remains. 02/23/21: Despite oxygen numbers looking better, now overall concern shifts somewhat towards mental state. Will continue to monitor for the next several days. However he has been on large amounts of oxygen therapy for a long time and could have some damage to his brain from this. Plan is to update the family tomorrow on current clinical state. His prognosis has been poor and now with mental state prognosis is worsening. HD per renal. Continue to wean FiO2 for sats >88% 02/22/21: Overall clinical state continues to waxes and wanes. Back up to 80%. Will call family tomorrow to update. Had HD last night, will likely have HD again on Tuesday. Very very guarded prognosis. Will send Triglyceride level anyway given recent change. 02/21/21: Continue to wean FiO2 for sats >88%. Down to 70 now and tolerating. Diprovan is off, nursing working to wean others as well. Can hold on triglycerides now that diprovan is off. Guarded prognosis. 02/20/21: HD today, goal is 3 liters. Continue sedation, did have to increase Diprovan but this is ok. Will need to check levels soon. BM complete. Continue prophylactic anticoagulation. Guarded prognosis. 02/19/21: HD per renal, likely tomorrow. Continue sedation. Has not had a BM so will give full dose of mag citrate today. STarted prophylactic anticoagulation. Wean FiO2 as tolerated. Will call family tomorrow. 02/18/21: HD per renal. continue sedation to help with oxygenation. Overall prognosis remains very guarded to poor. IMS has been speaking with family so will defer to them. Currently patient is not a candidate for trach given his oxygen and peep requirements. 02/17/21: Fine with cutting back on HD as not really helped with oxygenation. Continue to wean as tolerated for sats >88% and PaO2 >55. Sedation to achieve negative rass scoring. very very guarded to poor prognosis. 02/16/21: HD now. Wean FiO2 for sats> 88%. Agree with stopping ativan and holding on starting diprovan to see if the patient truly needs it. pH holding off bicarb drip goal is >7.2. Very very guarded to poor prognosis. 02/13/21: HD again now. Replace electrolytes per renal. Continue abx therapy per ID. Will get RT to wean FiO2 as not done on yesterday. Will restart diprovan post HD and stop ativan. Check Levels (Triglycerides on Tue or Tuesday). Can stop bicarb drip however must make sure that ABG is checked daily to make sure that pH is good. Very very guarded prognosis. 02/12/21: HD again today. Had a 12 second run of VTACH today as well. Stable. K is low, checking mag levels. Will alert Renal so they can adjust bath as needed. Post HD will start to wean FiO2 again. Unable to prone as patient does not tolerate. Repeat blood cultures negative and first set only showing Coag Negative Staph. Prognosis still remains very very guarded to poor. Will consider restarting Diprovan tomorrow. Patient now intubated for 20 days now but not candidate for trach yet given elevated PEEP and FiO2 levels but did discuss on rounds. 02/11/21: Vascath placed today for HD. Orders already in. Wean FiO2 for sats >88%. Abx per ID. Repeat cultures so far negative. Given persistent fevers, will check upper ext dopplers. Prognosis still remains guarded. 02/10/21: Triglycerides improved but current sedation is adequate so will hold on stopping ativan to add propofol back. Awaiting Labs from this morning. Plan to replace HD catheter tomorrow morning as early as possible. Fever curve is t rending down. Continue bicarb drip for now. Prognosis remains guarded. WIll speak with family tomorrow to update. 02/09/21: Repeat Triglycerides today. Follow up repeat blood cultures. Given continued fever will hold on replacing vascath today. If fever free the next 24 hours, can place in the morning or Tuesday morning. Will likely need blood with next HD session. Continue bicarb drip to help manage respiratory as well as metabolic acidosis. Wean FiO2 for sats >88% and PaO2 >55. Overall prognosis remains guarded to poor. 02/08/21: Picc out today. Will repeat culture if patient spikes again today. Plan to replace HD catheter either late tomorrow or Tuesday morning. Continue current level of sedation. Abx therapy per ID. Wean FiO2 as tolerated, doubt will be able to do much until we can resume HD. Guarded prognosis. Replaced potassium. Will need to check in the morning. Will repeat K later this afternoon. 02/07/21: Biggest issue now is that patient's numbers are better with HD but now with bacteremia, concern for line infection. ID is correct in requesting line holiday. Has a picc and an Right IJ Dialysis catheter with 3 ports. Currently getting HD today. Have not seen renal yet. Will pull right IJ line post HD and plan to replace it Tuesday evening or Tuesday. Continue bicarb drip for now and will keep picc as patient has been requiring levophed. If able to be weaned off levophed, will remove picc either tomorrow or Tuesday. Continue Ativan, Precedex and Fent drips, repeat Triglycerides on Tuesday. Very very guarded prognosis. Will remove Black today as well. 02/06/21: Will add bicarb drip at 125/hr. Giving 2 amps of NaHCO3 push now. Will repeat ABG this afternoon, may just ask for Art Line if possible. HD today per renal and I spoke with them about the bicarb drip. Long discussion with Sister, Significant and other and another family member on the phone on yesterday. I tried my best to explain the severity of the clinical state but not sure if they fully understood. The patient is very very ill and history suggests that his outcome will be poor (intubated with covid and renal failure on dialysis). This was expressed with the family. Will continue all supportive measures. Checking triglyceride levels today. 02/05/21: WIll increase PEEP to 16. Can increase pressors if needed for BP control during HD. Follow up cultures. If negative will scan legs and arms again for VTE. Repeat ABG at 1400 today. Will speak with sister and Girlfriend on phone today. 02/04/21: HD again today per renal notes. Likely will need daily HD. New fevers. Will draw blood and urine cultures if able to still make urine.. Repeat CXR. May need to check dopplers if all of those studies are negative. Wean FIO2 as tolerated. Unable to tolerate proning. Guarded to poor prognosis. 02/03/21: HD today per renal. Wean FiO2 as tolerated. No further proning as patient cannot tolerate it, however with volume removal, may consider in the future. Use pressors to keep MAPs 65 and greater for HD purporses so volume can be removed. (IJ was wide open (filled with blood)) with patient sitting up at 45 degrees. Guarded prognosis. 02/02/21: After renal speaks with family, will place vascath today. Agree with bicarb drip but will order some pushes now to help with pH. Overall prognosis is very very guarded to poor now that patient is COVID positive and requiring renal replacement therapy. Mortality is very high in these patients. Continue steroid therapy. Unable to tolerate proning. 01/30/21: Will plan for proning later today. Goal will be at least 12hrs but long is okay. Speaking with pharmacy to see if we can get paralytic for a longer period of time. Regardless will prone. Continue heavy sedation. BP stable. Continue steroids. Very very guarded prognosis. 01/29/21: will increase tidal volume and/or increase respiratory rate. Repeat ABG this afternoon. Continue paralytic and adequate sedation. Continue steroid and remdesivir, follow up any renal recs. Prognosis remains guarded. Wean Fio2 for sats >88% 01/28/21: Increased PEEP to 16. Will paralyze patient today and increase sedation. Ordering picc line for possible vasopressor therapy needs. Continue BID steroids. Renal function is slightly better today with fluids but could be making oxygenation worse. Not able to diurese. Still making urine. Continue Remdesivir. Watch for fever curve. If not improvement in the next 24 hours with paralyzing, will prone tomorrow morning. 01/27/21: Continue PEEP at 14. No weaning until FiO2 is at or below 40-45%. Continue anticoagulation. Getting Remdesivir now. Continue BID steroids. Renal has increased the fluids. Monitor urine output and renal function. Overall prognosis is very very guarded, especially if renal status worsens. 01/26/21: Increase PEEP to 14. Will add Precedex therapy. If patient does not respond to increases in PEEP may need to prone. Will place patient on lovenox and will feed patient. Remdesivir coming. Continue BID steroids. Prognosis is guarded. 01/25/21: Hold on proning today. Continue BID steroids. ABG this AM was ad equate. Pending abg tomorrow, may increase PEEP if not able to wean FiO2 any further. Per charting Remdesivir to arrive tomorrow. Guarded prognosis. 01/24/21: Continue BID steroids. No abg done this am but able to wean FiO2. Will obtain ABG in the am. Hold on proning for right now. Renal following, would like to diurese but they are given fluids for deisi. Agree with ID assessment and note. Guarded prognosis. 1. Increase steroids to BID given size 2. Check with ID to see if he is a candidate for remdesivir or any other experiemental therapy 3. Hold on proning for right now 4. Renal consulted and giving IVF's currently Guarded prognosis. CCT 31 minutes. Subjective Date of service: 03/04/21 Principal diagnosis: DEISI Interval history: No acute events. Permcath cancelled by IR secondary to COVID status. Pulm status is unchanged. Objective Vital Signs - 12hr 03/03/21 03/03/21 03/03/21 22:38 22:45 23:00 Temperature Pulse Rate 113 H 113 H 114 H Pulse Rate [ From Monitor] Respiratory 34 H 34 H 34 H Rate Blood Pressure 123/71 123/73 118/67 O2 Sat by Pulse 91 90 89 Oximetry 03/03/21 03/03/21 03/03/21 23:15 23:30 23:45 Temperature Pulse Rate 112 H 111 H 110 H Pulse Rate [ From Monitor] Respiratory 34 H 18 31 H Rate Blood Pressure 116/69 137/75 108/61 O2 Sat by Pulse 92 92 92 Oximetry 03/03/21 03/04/21 03/04/21 23:48 00:00 00:15 Temperature 99.8 F H Pulse Rate 108 H 107 H Pulse Rate [ 108 H From Monitor] Respiratory 34 H 34 H Rate Blood Pressure 114/65 111/67 O2 Sat by Pulse 94 94 Oximetry 03/04/21 03/04/21 03/04/21 00:30 00:45 01:00 Temperature Pulse Rate 107 H 105 H 106 H Pulse Rate [ From Monitor] Respiratory 34 H 34 H 34 H Rate Blood Pressure 120/68 108/64 114/68 O2 Sat by Pulse 93 95 94 Oximetry 03/04/21 03/04/21 03/04/21 01:15 01:30 01:45 Temperature Pulse Rate 108 H 107 H 106 H Pulse Rate [ From Monitor] Respiratory 33 H 34 H 34 H Rate Blood Pressure 115/66 115/69 114/63 O2 Sat by Pulse 95 96 93 Oximetry 03/04/21 03/04/21 03/04/21 02:00 02:15 02:30 Temperature Pulse Rate 106 H 105 H 105 H Pulse Rate [ From Monitor] Respiratory 32 H 34 H 34 H Rate Blood Pressure 110/61 114/63 108/59 O2 Sat by Pulse 92 97 97 Oximetry 03/04/21 03/04/21 03/04/21 02:45 03:00 03:15 Temperature Pulse Rate 105 H 105 H 107 H Pulse Rate [ From Monitor] Respiratory 33 H 33 H 33 H Rate Blood Pressure 116/63 116/63 123/67 O2 Sat by Pulse 97 94 96 Oximetry 03/04/21 03/04/21 03/04/21 03:30 03:45 03:49 Temperature 99.9 F H Pulse Rate 107 H 107 H Pulse Rate [ From Monitor] Respiratory 33 H 36 H Rate Blood Pressure 118/64 127/59 O2 Sat by Pulse 90 92 Oximetry 03/04/21 03/04/21 03/04/21 04:00 04:12 04:15 Temperature Pulse Rate 108 H 108 H 108 H Pulse Rate [ 108 H From Monitor] Respiratory 34 H 10 L Rate Blood Pressure 123/63 123/63 125/71 O2 Sat by Pulse 91 97 Oximetry 03/04/21 03/04/2103/04/21 04:30 04:45 05:00 Temperature Pulse Rate 109 H 107 H Pulse Rate [ From Monitor] Respiratory 31 H 35 H Rate Blood Pressure 125/65 121/68 107/70 O2 Sat by Pulse 93 95 95 Oximetry 03/04/21 03/04/21 03/04/21 05:15 05:30 05:45 Temperature Pulse Rate 111 H 109 H 106 H Pulse Rate [ From Monitor] Respiratory 31 H 31 H 31 H Rate Blood Pressure 99/52 124/63 119/65 O2 Sat by Pulse 96 87 97 Oximetry 03/04/21 03/04/21 03/04/21 06:00 06:15 06:30 Temperature Pulse Rate 104 H 102 H 103 H Pulse Rate [ From Monitor] Respiratory 32 H 36 H 36 H Rate Blood Pressure 121/68 110/62 114/67 O2 Sat by Pulse 97 97 97 Oximetry 03/04/21 03/04/21 03/04/21 06:45 07:00 07:15 Temperature Pulse Rate 106 H 104 H 103 H Pulse Rate [ From Monitor] Respiratory 35 H 34 H 35 H Rate Blood Pressure 123/66 116/65 113/62 O2 Sat by Pulse 97 96 97 Oximetry 03/04/21 03/04/21 03/04/21 07:30 07:34 07:45 Temperature Pulse Rate 102 H 103 H 101 H Pulse Rate [ From Monitor] Respiratory 34 H 39 H Rate Blood Pressure 108/61 108/61 107/64 O2 Sat by Pulse 97 100 99 Oximetry 03/04/21 03/04/21 03/04/21 08:00 08:15 08:30 Temperature 98.6 F Pulse Rate 102 H 102 H 103 H Pulse Rate [ From Monitor] Respiratory 34 H 34 H 35 H Rate Blood Pressure 107/60 107/63 114/63 O2 Sat by Pulse 98 98 98 Oximetry 03/04/21 03/04/21 03/04/21 08:45 09:00 09:15 Temperature Pulse Rate 101 H 103 H 102 H Pulse Rate [ From Monitor] Respiratory 33 H 27 H 21 Rate Blood Pressure 109/62 130/72 121/64 O2 Sat by Pulse 96 86 97 Oximetry 03/04/21 03/04/21 03/04/21 09:30 09:45 10:00 Temperature Pulse Rate 103 H 103 H 103 H Pulse Rate [ From Monitor] Respiratory 34 H 33 H 35 H Rate Blood Pressure 123/70 133/77 135/79 O2 Sat by Pulse 97 98 96 Oximetry 03/04/21 10:15 Temperature Pulse Rate 103 H Pulse Rate [ From Monitor] Respiratory 35 H Rate Blood Pressure 127/76 O2 Sat by Pulse 96 Oximetry Constitutional: other (sedated) Eyes: non-icteric ENT: other (orally intubated, critically ill) Neck: supple Effort: mildly labored (tachypneic) Ascultation: Bilateral: clear, other (coarse BS bilaterally) Percussion: Bilateral: not dull Cardiovascular: regular rate and rhythm (no mrg) Gastrointestinal: normoactive bowel sounds Integumentary: normal Extremities: no cyanosis, no edema, pink and warm Neurologic: unable to assess Psychiatric: other (unable to assess) CBC and BMP: 03/04/21 Unknown 03/04/21 Unknown ABG, PT/INR, D-dimer: ABG ABG pH 7.285 (7.320-7.450) L 03/04/21 03:28 POC ABG pCO2 62.0 mmHg (32.0-48.0) H 03/04/21 03:28 ABG pCO2 69.7 mm Hg 03/03/21 03:50 POC ABG pO2 80.9 mmHg (83-108) L 03/04/21 03:28 ABG pO2 85.8 mm Hg (80.0-90.0) 03/03/21 03:50 POC ABG HCO3 28.8 03/04/21 03:28 ABG O2 Saturation 95.4 (0-100) 03/04/21 03:28 PT/INR, D-dimer PT 14.6 Sec. (12.2-14.9) 03/03/21 Unknown INR 1.15 (0.87-1.13) H 03/03/21 Unknown D-Dimer 6536.84 ng/mlDDU (0-234) H 02/25/21 09:03 Abnormal lab findings: Abnormal Labs 01/22/21 01/22/21 01/22/21 22:39 22:57 22:57 WBC RBC Hgb Hct MCV MCH MCHC RDW Plt Count Lymph % (Auto) 6.6 L Lymph # (Auto) 0.5 L Seg Neutrophils % 87.6 H Seg Neuts % (Manual) Lymphocytes % (Manual) Monocytes % (Manual) Nucleated RBC % Seg Neutrophils # Seg Neutrophils # Man Lymphocytes # (Manual) Monocytes # (Manual) Eosinophils # (Manual) INR D-Dimer ABG pH POC ABG pCO2 POC ABG pO2 ABG pO2 ABG HCO3 ABG O2 Saturation ABG Base Excess ABG Hemoglobin ABG Oxyhemoglobin ABG Sodium ABG Potassium ABG Chloride ABG Glucose Oxyhemoglobin Carboxyhemoglobin Sodium 129 L Potassium 3.4 L Chloride 90.4 L Carbon Dioxide BUN 34 H Creatinine 1.5 H Glucose 146 H POC Glucose Hemoglobin A1c Lactic Acid Calcium 7.8 L Phosphorus Magnesium Ferritin Total Bilirubin AST 75 H ALT 57 H Lactate Dehydrogenase C-Reactive Protein Albumin 2.9 L Triglycerides Arterial Blood Glucose Arterial Blood Ionized Calcium Urine Creatinine 301.2 H Coronavirus (PCR) Crossmatch 01/22/21 01/22/21 01/22/21 22:57 22:57 22:57 WBC RBC Hgb Hct MCV MCH MCHC RDW Plt Count Lymph % (Auto) Lymph # (Auto) Seg Neutrophils % Seg Neuts % (Manual) Lymphocytes % (Manual) Monocytes % (Manual) Nucleated RBC % Seg Neutrophils # Seg Neutrophils # Man Lymphocytes # (Manual) Monocytes # (Manual) Eosinophils # (Manual) INR D-Dimer 1173.89 H ABG pH POC ABG pCO2 POC ABG pO2 ABG pO2 ABG HCO3 ABG O2 Saturation ABG Base Excess ABG Hemoglobin ABG Oxyhemoglobin ABG Sodium ABG Potassium ABG Chloride ABG Glucose Oxyhemoglobin Carboxyhemoglobin Sodium Potassium Chloride Carbon Dioxide BUN Creatinine Glucose 149 H POC Glucose Hemoglobin A1c Lactic Acid 2.10 H* Calcium Phosphorus Magnesium Ferritin Total Bilirubin AST ALT Lactate Dehydrogenase 685 H C-Reactive Protein 30.40 H Albumin Triglycerides Arterial Blood Glucose Arterial Blood Ionized Calcium Urine Creatinine Coronavirus (PCR) Crossmatch 01/22/21 01/23/21 01/23/21 22:57 08:41 10:01 WBC RBC Hgb Hct MCV MCH MCHC RDW Plt Count Lymph % (Auto) Lymph # (Auto) Seg Neutrophils % Seg Neuts % (Manual) Lymphocytes % (Manual) Monocytes % (Manual) Nucleated RBC % Seg Neutrophils # Seg Neutrophils # Man Lymphocytes # (Manual) Monocytes # (Manual) Eosinophils # (Manual) INR D-Dimer ABG pH POC ABG pCO2 POC ABG pO2 ABG pO2 ABG HCO3 ABG O2 Saturation ABG Base Excess ABG Hemoglobin ABG Oxyhemoglobin ABG Sodium ABG Potassium ABG Chloride ABG Glucose Oxyhemoglobin Carboxyhemoglobin Sodium 131 L Potassium Chloride 88.7 L Carbon Dioxide 18 L BUN 36 H Creatinine 1.6 H Glucose 147 H POC Glucose Hemoglobin A1c Lactic Acid Calcium 7.5 L Phosphorus Magnesium Ferritin 1207.0 H Total Bilirubin AST ALT Lactate Dehydrogenase C-Reactive Protein Albumin Triglycerides Arterial Blood Glucose Arterial Blood Ionized Calcium Urine Creatinine Coronavirus (PCR) Positive A Crossmatch 01/23/21 01/23/21 01/24/21 20:49 Unknown 00:10 WBC RBC Hgb Hct MCV MCH MCHC RDW Plt Count Lymph % (Auto) Lymph # (Auto) Seg Neutrophils % Seg Neuts % (Manual) Lymphocytes % (Manual) Monocytes % (Manual) Nucleated RBC % Seg Neutrophils # Seg Neutrophils # Man Lymphocytes # (Manual) Monocytes # (Manual) Eosinophils # (Manual) INR D-Dimer ABG pH POC ABG pCO2 POC ABG pO2 ABG pO2 165.4 H ABG HCO3 ABG O2 Saturation ABG Base Excess -2.5 L ABG Hemoglobin ABG Oxyhemoglobin ABG Sodium ABG Potassium ABG Chloride ABG Glucose Oxyhemoglobin Carboxyhemoglobin Sodium 130 L Potassium Chloride 91.0 L Carbon Dioxide 20 L BUN 52 H Creatinine 3.8 H D Glucose 150 H POC Glucose 125 H Hemoglobin A1c Lactic Acid Calcium 8.0 L Phosphorus Magnesium Ferritin Total Bilirubin AST 42 H ALT Lactate Dehydrogenase C-Reactive Protein Albumin 2.4 L Triglycerides Arterial Blood Glucose Arterial Blood Ionized Calcium Urine Creatinine Coronavirus (PCR) Crossmatch 01/24/21 01/24/21 01/24/21 05:05 05:05 05:05 WBC 14.0 H RBC Hgb Hct MCV 95 H MCH 33 H MCHC RDW Plt Count Lymph % (Auto) Lymph # (Auto) Seg Neutrophils % Seg Neuts % (Manual) 91.0 H Lymphocytes % (Manual) 4.0 L Monocytes % (Manual) Nucleated RBC % Seg Neutrophils # Seg Neutrophils # Man 12.7 H Lymphocytes # (Manual) 0.6 L Monocytes # (Manual) Eosinophils # (Manual) INR D-Dimer 6159.48 H ABG pH POC ABG pCO2 POC ABG pO2 ABG pO2 ABG HCO3 ABG O2 Saturation ABG Base Excess ABG Hemoglobin ABG Oxyhemoglobin ABG Sodium ABG Potassium ABG Chloride ABG Glucose Oxyhemoglobin Carboxyhemoglobin Sodium Potassium Chloride Carbon Dioxide BUN Creatinine Glucose POC Glucose Hemoglobin A1c Lactic Acid Calcium Phosphorus Magnesium Ferritin 1178.0 H Total Bilirubin AST ALT Lactate Dehydrogenase C-Reactive Protein Albumin Triglycerides Arterial Blood Glucose Arterial Blood Ionized Calcium Urine Creatinine Coronavirus (PCR) Crossmatch 01/24/21 01/24/21 01/24/21 05:05 05:05 05:05 WBC RBC Hgb Hct MCV MCH MCHC RDW Plt Count Lymph % (Auto) Lymph # (Auto) Seg Neutrophils % Seg Neuts % (Manual) Lymphocytes % (Manual) Monocytes % (Manual) Nucleated RBC % Seg Neutrophils # Seg Neutrophils # Man Lymphocytes # (Manual) Monocytes # (Manual) Eosinophils # (Manual) INR D-Dimer ABG pH POC ABG pCO2 POC ABG pO2 ABG pO2 ABG HCO3 ABG O2 Saturation ABG Base Excess ABG Hemoglobin ABG Oxyhemoglobin ABG Sodium ABG Potassium ABG Chloride ABG Glucose Oxyhemoglobin Carboxyhemoglobin Sodium 132 L Potassium Chloride 93.1 L Carbon Dioxide 21 L BUN 57 H Creatinine 3.7 H Glucose 133 H POC Glucose Hemoglobin A1c Lactic Acid 2.20 H* Calcium 7.7 L Phosphorus Magnesium Ferritin Total Bilirubin AST ALT Lactate Dehydrogenase 658 H C-Reactive Protein 33.20 H Albumin 2.4 L Triglycerides Arterial Blood Glucose Arterial Blood Ionized Calcium Urine Creatinine Coronavirus (PCR) Crossmatch 01/24/21 01/24/21 01/24/21 05:34 06:00 17:35 WBC RBC Hgb Hct MCV MCH MCHC RDW Plt Count Lymph % (Auto) Lymph # (Auto) Seg Neutrophils % Seg Neuts % (Manual) Lymphocytes % (Manual) Monocytes % (Manual) Nucleated RBC % Seg Neutrophils # Seg Neutrophils # Man Lymphocytes # (Manual) Monocytes # (Manual) Eosinophils # (Manual) INR D-Dimer ABG pH POC ABG pCO2 POC ABG pO2 ABG pO2 ABG HCO3 ABG O2 Saturation ABG Base Excess ABG Hemoglobin ABG Oxyhemoglobin ABG Sodium ABG Potassium ABG Chloride ABG Glucose Oxyhemoglobin Carboxyhemoglobin Sodium Potassium Chloride Carbon Dioxide BUN Creatinine Glucose POC Glucose 136 H 137 H Hemoglobin A1c Lactic Acid Calcium Phosphorus Magnesium 2.80 H Ferritin Total Bilirubin AST ALT Lactate Dehydrogenase C-Reactive Protein Albumin Triglycerides Arterial Blood Glucose Arterial Blood Ionized Calcium Urine Creatinine Coronavirus (PCR) Crossmatch 03/01/25/21 01/25/21 04:15 05:40 05:40 WBC RBC Hgb Hct MCV 95 H MCH 33 H MCHC 35 H RDW Plt Count Lymph % (Auto) Lymph # (Auto) Seg Neutrophils % Seg Neuts % (Manual) 95.0 H Lymphocytes % (Manual) 3.0 L Monocytes % (Manual) Nucleated RBC % Seg Neutrophils # Seg Neutrophils # Man 7.8 H Lymphocytes # (Manual) 0.2 L Monocytes # (Manual) Eosinophils # (Manual) INR D-Dimer ABG pH POC ABG pCO2 POC ABG pO2 63.2 L ABG pO2 ABG HCO3 ABG O2 Saturation ABG Base Excess ABG Hemoglobin ABG Oxyhemoglobin 89.6 L ABG Sodium ABG Potassium ABG Chloride ABG Glucose 165 H Oxyhemoglobin Carboxyhemoglobin 0.3 L Sodium Potassium Chloride Carbon Dioxide BUN 67 H Creatinine 3.4 H Glucose 153 H POC Glucose Hemoglobin A1c Lactic Acid Calcium 7.5 L Phosphorus Magnesium Ferritin Total Bilirubin 1.40 H AST 62 H ALT Lactate Dehydrogenase C-Reactive Protein Albumin 2.6 L Triglycerides Arterial Blood Glucose 165 H Arterial Blood Ionized Calcium 4.3 L Urine Creatinine Coronavirus (PCR) Crossmatch 01/25/21 01/25/21 01/25/21 05:59 12:00 17:17 WBC RBC Hgb Hct MCV MCH MCHC RDW Plt Count Lymph % (Auto) Lymph # (Auto) Seg Neutrophils % Seg Neuts % (Manual) Lymphocytes % (Manual) Monocytes % (Manual) Nucleated RBC % Seg Neutrophils # Seg Neutrophils # Man Lymphocytes # (Manual) Monocytes # (Manual) Eosinophils # (Manual) INR D-Dimer ABG pH POC ABG pCO2 POC ABG pO2 ABG pO2 ABG HCO3 ABG O2 Saturation ABG Base Excess ABG Hemoglobin ABG Oxyhemoglobin ABG Sodium ABG Potassium ABG Chloride ABG Glucose Oxyhemoglobin Carboxyhemoglobin Sodium Potassium Chloride Carbon Dioxide BUN Creatinine Glucose POC Glucose 140 H 143 H 149 H Hemoglobin A1c Lactic Acid Calcium Phosphorus Magnesium Ferritin Total Bilirubin AST ALT Lactate Dehydrogenase C-Reactive Protein Albumin Triglycerides Arterial Blood Glucose Arterial Blood Ionized Calcium Urine Creatinine Coronavirus (PCR) Crossmatch 01/25/21 01/26/21 01/26/21 23:41 03:43 05:46 WBC RBC Hgb Hct MCV MCH MCHC RDW Plt Count Lymph % (Auto) Lymph # (Auto) Seg Neutrophils % Seg Neuts % (Manual) Lymphocytes % (Manual) Monocytes % (Manual) Nucleated RBC % Seg Neutrophils # Seg Neutrophils # Man Lymphocytes # (Manual) Monocytes # (Manual) Eosinophils # (Manual) INR D-Dimer ABG pH POC ABG pCO2 POC ABG pO2 70.0 L ABG pO2 ABG HCO3 ABG O2 Saturation ABG Base Excess ABG Hemoglobin ABG Oxyhemoglobin 91.9 L ABG Sodium ABG Potassium ABG Chloride 109.0 H ABG Glucose 165 H Oxyhemoglobin Carboxyhemoglobin Sodium Potassium Chloride Carbon Dioxide BUN Creatinine Glucose POC Glucose 132 H 161 H Hemoglobin A1c Lactic Acid Calcium Phosphorus Magnesium Ferritin Total Bilirubin AST ALT Lactate Dehydrogenase C-Reactive Protein Albumin Triglycerides Arterial Blood Glucose 165 H Arterial Blood Ionized Calcium 4.5 L Urine Creatinine Coronavirus (PCR) Crossmatch 01/26/21 01/26/21 01/26/21 05:47 05:47 05:47 WBC RBC Hgb Hct 35.3 L MCV 96 H MCH 33 H MCHC RDW Plt Count Lymph % (Auto) Lymph # (Auto) Seg Neutrophils % Seg Neuts % (Manual) 96.0 H Lymphocytes % (Manual) 2.0 L Monocytes % (Manual) Nucleated RBC % Seg Neutrophils # Seg Neutrophils # Man Lymphocytes # (Manual) 0.1 L Monocytes # (Manual) Eosinophils # (Manual) INR D-Dimer > 57178 H ABG pH POC ABG pCO2 POC ABG pO2 ABG pO2 ABG HCO3 ABG O2 Saturation ABG Base Excess ABG Hemoglobin ABG Oxyhemoglobin ABG Sodium ABG Potassium ABG Chloride ABG Glucose Oxyhemoglobin Carboxyhemoglobin Sodium Potassium Chloride Carbon Dioxide BUN 57 H Creatinine 2.2 H Glucose 185 H POC Glucose Hemoglobin A1c Lactic Acid Calcium 8.1 L Phosphorus Magnesium Ferritin Total Bilirubin AST ALT Lactate Dehydrogenase C-Reactive Protein Albumin Triglycerides Arterial Blood Glucose Arterial Blood Ionized Calcium Urine Creatinine Coronavirus (PCR) Crossmatch 01/26/21 01/26/21 01/26/21 05:47 05:47 05:47 WBC RBC Hgb Hct MCV MCH MCHC RDW Plt Count Lymph % (Auto) Lymph # (Auto) Seg Neutrophils % Seg Neuts % (Manual) Lymphocytes % (Manual) Monocytes % (Manual) Nucleated RBC % Seg Neutrophils # Seg Neutrophils # Man Lymphocytes # (Manual) Monocytes # (Manual) Eosinophils # (Manual) INR D-Dimer ABG pH POC ABG pCO2 POC ABG pO2 ABG pO2 ABG HCO3 ABG O2 Saturation ABG Base Excess ABG Hemoglobin ABG Oxyhemoglobin ABG Sodium ABG Potassium ABG Chloride ABG Glucose Oxyhemoglobin Carboxyhemoglobin Sodium Potassium Chloride 107.1 H Carbon Dioxide BUN 56 H Creatinine 2.2 H Glucose 188 H POC Glucose Hemoglobin A1c Lactic Acid Calcium 8.0 L Phosphorus Magnesium Ferritin 1178.0 H Total Bilirubin 1.50 H AST ALT Lactate Dehydrogenase 588 H C-Reactive Protein 40.10 H Albumin 2.2 L Triglycerides Arterial Blood Glucose Arterial Blood Ionized Calcium Urine Creatinine Coronavirus (PCR) Crossmatch 01/26/21 01/26/21 01/26/21 11:34 18:17 23:20 WBC RBC Hgb Hct MCV MCH MCHC RDW Plt Count Lymph % (Auto) Lymph # (Auto) Seg Neutrophils % Seg Neuts % (Manual) Lymphocytes % (Manual) Monocytes % (Manual) Nucleated RBC % Seg Neutrophils # Seg Neutrophils # Man Lymphocytes # (Manual) Monocytes # (Manual) Eosinophils # (Manual) INR D-Dimer ABG pH POC ABG pCO2 POC ABG pO2 ABG pO2 ABG HCO3 ABG O2 Saturation ABG Base Excess ABG Hemoglobin ABG Oxyhemoglobin ABG Sodium ABG Potassium ABG Chloride ABG Glucose Oxyhemoglobin Carboxyhemoglobin Sodium Potassium Chloride Carbon Dioxide BUN Creatinine Glucose POC Glucose 129 H 205 H 155 H Hemoglobin A1c Lactic Acid Calcium Phosphorus Magnesium Ferritin Total Bilirubin AST ALT Lactate Dehydrogenase C-Reactive Protein Albumin Triglycerides Arterial Blood Glucose Arterial Blood Ionized Calcium Urine Creatinine Coronavirus (PCR) Crossmatch 01/27/21 01/27/21 01/27/21 02:45 05:29 05:29 WBC RBC 3.58 L Hgb 11.7 L Hct 34.9 L MCV 97 H MCH 33 H MCHC RDW Plt Count Lymph % (Auto) Lymph # (Auto) Seg Neutrophils % Seg Neuts % (Manual) 88.0 H Lymphocytes % (Manual) 7.0 L Monocytes % (Manual) Nucleated RBC % Seg Neutrophils # Seg Neutrophils # Man Lymphocytes # (Manual) 0.5 L Monocytes # (Manual) Eosinophils # (Manual) INR D-Dimer ABG pH 7.319 L POC ABG pCO2 50.7 H POC ABG pO2 63.0 L ABG pO2 ABG HCO3 ABG O2 Saturation ABG Base Excess ABG Hemoglobin ABG Oxyhemoglobin ABG Sodium 145.2 H ABG Potassium 5.1 H ABG Chloride 114.0 H ABG Glucose 178 H Oxyhemoglobin Carboxyhemoglobin Sodium Potassium Chloride Carbon Dioxide BUN Creatinine Glucose POC Glucose Hemoglobin A1c Lactic Acid Calcium Phosphorus Magnesium 4.00 H Ferritin Total Bilirubin AST ALT Lactate Dehydrogenase C-Reactive Protein Albumin Triglycerides Arterial Blood Glucose 178 H Arterial Blood Ionized Calcium Urine Creatinine Coronavirus (PCR) Crossmatch 01/27/21 01/27/21 01/27/21 05:29 05:29 05:31 WBC RBC Hgb Hct MCV MCH MCHC RDW Plt Count Lymph % (Auto) Lymph # (Auto) Seg Neutrophils % Seg Neuts % (Manual) Lymphocytes % (Manual) Monocytes % (Manual) Nucleated RBC % Seg Neutrophils # Seg Neutrophils # Man Lymphocytes # (Manual) Monocytes # (Manual) Eosinophils # (Manual) INR D-Dimer ABG pH POC ABG pCO2 POC ABG pO2 ABG pO2 ABG HCO3 ABG O2 Saturation ABG Base Excess ABG Hemoglobin ABG Oxyhemoglobin ABG Sodium ABG Potassium ABG Chloride ABG Glucose Oxyhemoglobin Carboxyhemoglobin Sodium Potassium 5.2 H Chloride 109.6 H Carbon Dioxide BUN 67 H Creatinine 2.8 H Glucose 195 H POC Glucose 176 H Hemoglobin A1c Lactic Acid Calcium 7.9 L Phosphorus Magnesium Ferritin Total Bilirubin AST ALT Lactate Dehydrogenase C-Reactive Protein Albumin Triglycerides 160 H Arterial Blood Glucose Arterial Blood Ionized Calcium Urine Creatinine Coronavirus (PCR) Crossmatch 01/27/21 01/27/21 01/27/21 11:27 18:08 23:30 WBC RBC Hgb Hct MCV MCH MCHC RDW Plt Count Lymph % (Auto) Lymph # (Auto) Seg Neutrophils % Seg Neuts % (Manual) Lymphocytes % (Manual) Monocytes % (Manual) Nucleated RBC % Seg Neutrophils # Seg Neutrophils # Man Lymphocytes # (Manual) Monocytes # (Manual) Eosinophils # (Manual) INR D-Dimer ABG pH POC ABG pCO2 POC ABG pO2 ABG pO2 ABG HCO3 ABG O2 Saturation ABG Base Excess ABG Hemoglobin ABG Oxyhemoglobin ABG Sodium ABG Potassium ABG Chloride ABG Glucose Oxyhemoglobin Carboxyhemoglobin Sodium Potassium Chloride Carbon Dioxide BUN Creatinine Glucose POC Glucose 189 H 212 H 175 H Hemoglobin A1c Lactic Acid Calcium Phosphorus Magnesium Ferritin Total Bilirubin AST ALT Lactate Dehydrogenase C-Reactive Protein Albumin Triglycerides Arterial Blood Glucose Arterial Blood Ionized Calcium Urine Creatinine Coronavirus (PCR) Crossmatch 01/28/21 01/28/21 01/28/21 03:58 04:00 04:00 WBC RBC Hgb Hct MCV MCH MCHC RDW Plt Count Lymph % (Auto) Lymph # (Auto) Seg Neutrophils % Seg Neuts % (Manual) Lymphocytes % (Manual) Monocytes % (Manual) Nucleated RBC % Seg Neutrophils # Seg Neutrophils # Man Lymphocytes # (Manual) Monocytes # (Manual) Eosinophils # (Manual) INR D-Dimer > 29387 H ABG pH POC ABG pCO2 POC ABG pO2 52.9 L ABG pO2 ABG HCO3 ABG O2 Saturation ABG Base Excess ABG Hemoglobin ABG Oxyhemoglobin 84.1 L ABG Sodium 148.9 H ABG Potassium ABG Chloride 117.0 H ABG Glucose 194 H Oxyhemoglobin Carboxyhemoglobin Sodium Potassium Chloride Carbon Dioxide BUN Creatinine Glucose POC Glucose Hemoglobin A1c Lactic Acid Calcium Phosphorus Magnesium Ferritin Total Bilirubin AST ALT Lactate Dehydrogenase 679 H C-Reactive Protein 17.10 H Albumin Triglycerides Arterial Blood Glucose 194 H Arterial Blood Ionized Calcium Urine Creatinine Coronavirus (PCR) Crossmatch 01/28/21 01/28/21 01/28/21 04:00 05:00 06:00 WBC RBC 3.59 L Hgb 11.6 L Hct 34.8 L MCV 97 H MCH MCHC RDW Plt Count Lymph % (Auto) Lymph # (Auto) Seg Neutrophils % Seg Neuts % (Manual) 96.0 H Lymphocytes % (Manual) 3.0 L Monocytes % (Manual) Nucleated RBC % Seg Neutrophils # Seg Neutrophils # Man Lymphocytes # (Manual) 0.2 L Monocytes # (Manual) Eosinophils # (Manual) INR D-Dimer ABG pH POC ABG pCO2 POC ABG pO2 ABG pO2 ABG HCO3 ABG O2 Saturation ABG Base Excess ABG Hemoglobin ABG Oxyhemoglobin ABG Sodium ABG Potassium ABG Chloride ABG Glucose Oxyhemoglobin Carboxyhemoglobin Sodium Potassium Chloride Carbon Dioxide BUN Creatinine Glucose POC Glucose 159 H Hemoglobin A1c Lactic Acid Calcium Phosphorus Magnesium Ferritin 798.0 H Total Bilirubin AST ALT Lactate Dehydrogenase C-Reactive Protein Albumin Triglycerides Arterial Blood Glucose Arterial Blood Ionized Calcium Urine Creatinine Coronavirus (PCR) Crossmatch 01/28/21 01/28/21 01/28/21 06:00 06:00 08:12 WBC RBC Hgb Hct MCV MCH MCHC RDW Plt Count Lymph % (Auto) Lymph # (Auto) Seg Neutrophils % Seg Neuts % (Manual) Lymphocytes % (Manual) Monocytes % (Manual) Nucleated RBC % Seg Neutrophils # Seg Neutrophils # Man Lymphocytes # (Manual) Monocytes # (Manual) Eosinophils # (Manual) INR D-Dimer ABG pH POC ABG pCO2 POC ABG pO2 ABG pO2 ABG HCO3 ABG O2 Saturation ABG Base Excess ABG Hemoglobin ABG Oxyhemoglobin ABG Sodium ABG Potassium ABG Chloride ABG Glucose Oxyhemoglobin Carboxyhemoglobin Sodium Potassium Chloride 111.9 H Carbon Dioxide BUN 59 H Creatinine 2.2 H Glucose 189 H POC Glucose 181 H Hemoglobin A1c Lactic Acid Calcium 8.1 L Phosphorus Magnesium 3.20 H Ferritin Total Bilirubin AST ALT Lactate Dehydrogenase C-Reactive Protein Albumin Triglycerides Arterial Blood Glucose Arterial Blood Ionized Calcium Urine Creatinine Coronavirus (PCR) Crossmatch 01/28/21 01/28/21 01/28/21 12:03 16:43 23:51 WBC RBC Hgb Hct MCV MCH MCHC RDW Plt Count Lymph % (Auto) Lymph # (Auto) Seg Neutrophils % Seg Neuts % (Manual) Lymphocytes % (Manual) Monocytes % (Manual) Nucleated RBC % Seg Neutrophils # Seg Neutrophils # Man Lymphocytes # (Manual) Monocytes # (Manual) Eosinophils # (Manual) INR D-Dimer ABG pH POC ABG pCO2 POC ABG pO2 ABG pO2 ABG HCO3 ABG O2 Saturation ABG Base Excess ABG Hemoglobin ABG Oxyhemoglobin ABG Sodium ABG Potassium ABG Chloride ABG Glucose Oxyhemoglobin Carboxyhemoglobin Sodium Potassium Chloride Carbon Dioxide BUN Creatinine Glucose POC Glucose 164 H 198 H 196 H Hemoglobin A1c Lactic Acid Calcium Phosphorus Magnesium Ferritin Total Bilirubin AST ALT Lactate Dehydrogenase C-Reactive Protein Albumin Triglycerides Arterial Blood Glucose Arterial Blood Ionized Calcium Urine Creatinine Coronavirus (PCR) Crossmatch 01/29/21 01/29/21 01/29/21 05:00 05:23 06:00 WBC RBC Hgb Hct MCV MCH MCHC RDW Plt Count Lymph % (Auto) Lymph # (Auto) Seg Neutrophils % Seg Neuts % (Manual) Lymphocytes % (Manual) Monocytes % (Manual) Nucleated RBC % Seg Neutrophils # Seg Neutrophils # Man Lymphocytes # (Manual) Monocytes # (Manual) Eosinophils # (Manual) INR D-Dimer ABG pH 7.119 L POC ABG pCO2 87.1 H POC ABG pO2 ABG pO2 ABG HCO3 ABG O2 Saturation ABG Base Excess ABG Hemoglobin ABG Oxyhemoglobin ABG Sodium 152.5 H ABG Potassium 5.7 H ABG Chloride 120.0 H ABG Glucose 217 H Oxyhemoglobin Carboxyhemoglobin Sodium 151 H Potassium 5.9 H D Chloride 117.8 H Carbon Dioxide BUN 54 H Creatinine 2.2 H Glucose 208 H POC Glucose 180 H Hemoglobin A1c Lactic Acid Calcium 7.9 L Phosphorus Magnesium Ferritin Total Bilirubin AST ALT Lactate Dehydrogenase C-Reactive Protein Albumin Triglycerides Arterial Blood Glucose 217 H Arterial Blood Ionized Calcium Urine Creatinine Coronavirus (PCR) Crossmatch 01/29/21 01/29/21 01/29/21 12:29 17:28 18:05 WBC RBC Hgb Hct MCV MCH MCHC RDW Plt Count Lymph % (Auto) Lymph # (Auto) Seg Neutrophils % Seg Neuts % (Manual) Lymphocytes % (Manual) Monocytes % (Manual) Nucleated RBC % Seg Neutrophils # Seg Neutrophils # Man Lymphocytes # (Manual) Monocytes # (Manual) Eosinophils # (Manual) INR D-Dimer ABG pH POC ABG pCO2 POC ABG pO2 ABG pO2 ABG HCO3 ABG O2 Saturation ABG Base Excess ABG Hemoglobin ABG Oxyhemoglobin ABG Sodium ABG Potassium ABG Chloride ABG Glucose Oxyhemoglobin Carboxyhemoglobin Sodium 151 H Potassium 5.5 H Chloride 118.2 H Carbon Dioxide BUN 52 H Creatinine 2.2 H Glucose 224 H POC Glucose 181 H 203 H Hemoglobin A1c Lactic Acid Calcium 8.0 L Phosphorus Magnesium Ferritin Total Bilirubin AST ALT Lactate Dehydrogenase C-Reactive Protein Albumin Triglycerides Arterial Blood Glucose Arterial Blood Ionized Calcium Urine Creatinine Coronavirus (PCR) Crossmatch 01/29/21 01/29/21 01/29/21 18:13 23:34 Unknown WBC RBC Hgb Hct MCV 101 H MCH MCHC RDW 15.7 H Plt Count Lymph % (Auto) Lymph # (Auto) Seg Neutrophils % Seg Neuts % (Manual) 95.0 H Lymphocytes % (Manual) 3.0 L Monocytes % (Manual) Nucleated RBC % Seg Neutrophils # Seg Neutrophils # Man 8.0 H Lymphocytes # (Manual) 0.3 L Monocytes # (Manual) Eosinophils # (Manual) INR D-Dimer ABG pH 7.223 L POC ABG pCO2 64.8 H POC ABG pO2 63.6 L ABG pO2 ABG HCO3 ABG O2 Saturation ABG Base Excess ABG Hemoglobin ABG Oxyhemoglobin 89.4 L ABG Sodium 152.9 H ABG Potassium 5.3 H ABG Chloride 121.0 H ABG Glucose 227 H Oxyhemoglobin Carboxyhemoglobin Sodium Potassium Chloride Carbon Dioxide BUN Creatinine Glucose POC Glucose 198 H Hemoglobin A1c Lactic Acid Calcium Phosphorus Magnesium Ferritin Total Bilirubin AST ALT Lactate Dehydrogenase C-Reactive Protein Albumin Triglycerides Arterial Blood Glucose 227 H Arterial Blood Ionized Calcium Urine Creatinine Coronavirus (PCR) Crossmatch 01/30/21 01/30/21 01/30/21 04:00 04:00 04:00 WBC RBC Hgb Hct MCV MCH MCHC RDW Plt Count Lymph % (Auto) Lymph # (Auto) Seg Neutrophils % Seg Neuts % (Manual) Lymphocytes % (Manual) Monocytes % (Manual) Nucleated RBC % Seg Neutrophils # Seg Neutrophils # Man Lymphocytes # (Manual) Monocytes # (Manual) Eosinophils # (Manual) INR D-Dimer > 19432 H ABG pH POC ABG pCO2 POC ABG pO2 ABG pO2 ABG HCO3 ABG O2 Saturation ABG Base Excess ABG Hemoglobin ABG Oxyhemoglobin ABG Sodium ABG Potassium ABG Chloride ABG Glucose Oxyhemoglobin Carboxyhemoglobin Sodium Potassium Chloride Carbon Dioxide BUN Creatinine Glucose 234 H POC Glucose Hemoglobin A1c Lactic Acid Calcium Phosphorus Magnesium Ferritin 763.9 H Total Bilirubin AST ALT Lactate Dehydrogenase 424 H C-Reactive Protein 23.90 H Albumin Triglycerides Arterial Blood Glucose Arterial Blood Ionized Calcium Urine Creatinine Coronavirus (PCR) Crossmatch 01/30/21 01/30/21 01/30/21 04:24 05:00 05:16 WBC RBC 3.57 L Hgb 11.3 L Hct 35.4 L MCV 99 H MCH MCHC RDW 15.6 H Plt Count Lymph % (Auto) Lymph # (Auto) Seg Neutrophils % Seg Neuts % (Manual) 97.0 H Lymphocytes % (Manual) 1.0 L Monocytes % (Manual) Nucleated RBC % Seg Neutrophils # Seg Neutrophils # Man 8.6 H Lymphocytes # (Manual) 0.1 L Monocytes # (Manual) Eosinophils # (Manual) INR D-Dimer ABG pH 7.235 L POC ABG pCO2 69.7 H POC ABG pO2 61.0 L ABG pO2 ABG HCO3 ABG O2 Saturation ABG Base Excess ABG Hemoglobin ABG Oxyhemoglobin 89 L ABG Sodium 154.2 H ABG Potassium 5.4 H ABG Chloride 121.0 H ABG Glucose 247 H Oxyhemoglobin Carboxyhemoglobin Sodium Potassium Chloride Carbon Dioxide BUN Creatinine Glucose POC Glucose 238 H Hemoglobin A1c Lactic Acid Calcium Phosphorus Magnesium Ferritin Total Bilirubin AST ALT Lactate Dehydrogenase C-Reactive Protein Albumin Triglycerides Arterial Blood Glucose 247 H Arterial Blood Ionized Calcium Urine Creatinine Coronavirus (PCR) Crossmatch 01/30/21 01/30/21 01/30/21 06:00 11:28 12:00 WBC RBC Hgb Hct MCV MCH MCHC RDW Plt Count Lymph % (Auto) Lymph # (Auto) Seg Neutrophils % Seg Neuts % (Manual) Lymphocytes % (Manual) Monocytes % (Manual) Nucleated RBC % Seg Neutrophils # Seg Neutrophils # Man Lymphocytes # (Manual) Monocytes # (Manual) Eosinophils # (Manual) INR D-Dimer ABG pH POC ABG pCO2 POC ABG pO2 ABG pO2 ABG HCO3 ABG O2 Saturation ABG Base Excess ABG Hemoglobin ABG Oxyhemoglobin ABG Sodium ABG Potassium ABG Chloride ABG Glucose Oxyhemoglobin Carboxyhemoglobin Sodium 152 H Potassium 5.3 H Chloride 120.5 H Carbon Dioxide BUN 50 H Creatinine 2.3 H Glucose 239 H POC Glucose 153 H Hemoglobin A1c Lactic Acid Calcium 8.2 L Phosphorus Magnesium 2.60 H Ferritin Total Bilirubin AST ALT Lactate Dehydrogenase C-Reactive Protein Albumin Triglycerides 293 H Arterial Blood Glucose Arterial Blood Ionized Calcium Urine Creatinine 53.0 H Coronavirus (PCR) Crossmatch 01/30/21 01/30/21 01/31/21 18:49 23:06 04:00 WBC RBC Hgb Hct MCV MCH MCHC RDW Plt Count Lymph % (Auto) Lymph # (Auto) Seg Neutrophils % Seg Neuts % (Manual) Lymphocytes % (Manual) Monocytes % (Manual) Nucleated RBC % Seg Neutrophils # Seg Neutrophils # Man Lymphocytes # (Manual) Monocytes # (Manual) Eosinophils # (Manual) INR D-Dimer ABG pH POC ABG pCO2 POC ABG pO2 ABG pO2 ABG HCO3 ABG O2 Saturation ABG Base Excess ABG Hemoglobin ABG Oxyhemoglobin ABG Sodium ABG Potassium ABG Chloride ABG Glucose Oxyhemoglobin Carboxyhemoglobin Sodium 156 H Potassium 5.9 H Chloride 122.6 H Carbon Dioxide BUN 61 H Creatinine 3.2 H Glucose 205 H POC Glucose 220 H 192 H Hemoglobin A1c Lactic Acid Calcium 8.0 L Phosphorus Magnesium Ferritin Total Bilirubin AST ALT Lactate Dehydrogenase C-Reactive Protein Albumin Triglycerides Arterial Blood Glucose Arterial Blood Ionized Calcium Urine Creatinine Coronavirus (PCR) Crossmatch 01/31/21 01/31/21 01/31/21 04:40 05:17 11:33 WBC RBC Hgb Hct MCV MCH MCHC RDW Plt Count Lymph % (Auto) Lymph # (Auto) Seg Neutrophils % Seg Neuts % (Manual) Lymphocytes % (Manual) Monocytes % (Manual) Nucleated RBC % Seg Neutrophils # Seg Neutrophils # Man Lymphocytes # (Manual) Monocytes # (Manual) Eosinophils # (Manual) INR D-Dimer ABG pH 7.161 L* POC ABG pCO2 POC ABG pO2 ABG pO2 142.2 H ABG HCO3 28.3 H ABG O2 Saturation ABG Base Excess -3.2 L ABG Hemoglobin ABG Oxyhemoglobin ABG Sodium ABG Potassium ABG Chloride ABG Glucose Oxyhemoglobin Carboxyhemoglobin Sodium Potassium Chloride Carbon Dioxide BUN Creatinine Glucose POC Glucose 200 H 167 H Hemoglobin A1c Lactic Acid Calcium Phosphorus Magnesium Ferritin Total Bilirubin AST ALT Lactate Dehydrogenase C-Reactive Protein Albumin Triglycerides Arterial Blood Glucose Arterial Blood Ionized Calcium Urine Creatinine Coronavirus (PCR) Crossmatch 01/31/21 01/31/21 01/31/21 14:00 17:10 23:24 WBC RBC Hgb Hct MCV MCH MCHC RDW Plt Count Lymph % (Auto) Lymph # (Auto) Seg Neutrophils % Seg Neuts % (Manual) Lymphocytes % (Manual) Monocytes % (Manual) Nucleated RBC % Seg Neutrophils # Seg Neutrophils # Man Lymphocytes # (Manual) Monocytes # (Manual) Eosinophils # (Manual) INR D-Dimer ABG pH 7.205 L POC ABG pCO2 POC ABG pO2 ABG pO2 90.9 H ABG HCO3 26.5 H ABG O2 Saturation ABG Base Excess -2.7 L ABG Hemoglobin 12.3 L ABG Oxyhemoglobin ABG Sodium ABG Potassium ABG Chloride ABG Glucose Oxyhemoglobin 93.9 L Carboxyhemoglobin Sodium Potassium Chloride Carbon Dioxide BUN Creatinine Glucose POC Glucose 190 H 203 H Hemoglobin A1c Lactic Acid Calcium Phosphorus Magnesium Ferritin Total Bilirubin AST ALT Lactate Dehydrogenase C-Reactive Protein Albumin Triglycerides Arterial Blood Glucose Arterial Blood Ionized Calcium Urine Creatinine Coronavirus (PCR) Crossmatch 02/01/21 02/01/21 02/01/21 05:15 06:22 10:20 WBC RBC Hgb Hct MCV MCH MCHC RDW Plt Count Lymph % (Auto) Lymph # (Auto) Seg Neutrophils % Seg Neuts % (Manual) Lymphocytes % (Manual) Monocytes % (Manual) Nucleated RBC % Seg Neutrophils # Seg Neutrophils # Man Lymphocytes # (Manual) Monocytes # (Manual) Eosinophils # (Manual) INR D-Dimer ABG pH 6.920 L* 7.116 L* POC ABG pCO2 POC ABG pO2 ABG pO2 102.9 H 113.1 H ABG HCO3 28.2 H ABG O2 Saturation 92.9 L ABG Base Excess -6.9 L -5.8 L ABG Hemoglobin 11.6 L 9.5 L ABG Oxyhemoglobin ABG Sodium ABG Potassium ABG Chloride ABG Glucose Oxyhemoglobin 90.5 L 94.6 L Carboxyhemoglobin Sodium Potassium Chloride Carbon Dioxide BUN Creatinine Glucose POC Glucose 221 H Hemoglobin A1c Lactic Acid Calcium Phosphorus Magnesium Ferritin Total Bilirubin AST ALT Lactate Dehydrogenase C-Reactive Protein Albumin Triglycerides Arterial Blood Glucose Arterial Blood Ionized Calcium Urine Creatinine Coronavirus (PCR) Crossmatch 02/01/21 02/01/21 02/01/21 11:12 12:35 16:00 WBC RBC Hgb Hct MCV MCH MCHC RDW Plt Count Lymph % (Auto) Lymph # (Auto) Seg Neutrophils % Seg Neuts % (Manual) Lymphocytes % (Manual) Monocytes % (Manual) Nucleated RBC % Seg Neutrophils # Seg Neutrophils # Man Lymphocytes # (Manual) Monocytes # (Manual) Eosinophils # (Manual) INR D-Dimer ABG pH 7.155 L* POC ABG pCO2 POC ABG pO2 ABG pO2 94.6 H ABG HCO3 ABG O2 Saturation ABG Base Excess -6.5 L ABG Hemoglobin 13.1 L ABG Oxyhemoglobin ABG Sodium ABG Potassium ABG Chloride ABG Glucose Oxyhemoglobin 93.7 L Carboxyhemoglobin Sodium 155 H Potassium 5.1 H Chloride 120.5 H Carbon Dioxide BUN 90 H Creatinine 6.1 H D Glucose 238 H POC Glucose 207 H Hemoglobin A1c Lactic Acid Calcium 7.4 L Phosphorus Magnesium Ferritin Total Bilirubin AST ALT Lactate Dehydrogenase C-Reactive Protein Albumin Triglycerides Arterial Blood Glucose Arterial Blood Ionized Calcium Urine Creatinine Coronavirus (PCR) Crossmatch 02/01/21 02/01/21 02/02/21 17:10 23:47 04:04 WBC RBC 3.02 L Hgb 9.8 L Hct 30.7 L MCV 102 H MCH MCHC RDW 15.6 H Plt Count Lymph % (Auto) 4.2 L Lymph # (Auto) 0.3 L Seg Neutrophils % Seg Neuts % (Manual) Lymphocytes % (Manual) Monocytes % (Manual) Nucleated RBC % Seg Neutrophils # Seg Neutrophils # Man Lymphocytes # (Manual) Monocytes # (Manual) Eosinophils # (Manual) INR D-Dimer ABG pH POC ABG pCO2 POC ABG pO2 ABG pO2 ABG HCO3 ABG O2 Saturation ABG Base Excess ABG Hemoglobin ABG Oxyhemoglobin ABG Sodium ABG Potassium ABG Chloride ABG Glucose Oxyhemoglobin Carboxyhemoglobin Sodium Potassium Chloride Carbon Dioxide BUN Creatinine Glucose POC Glucose 238 H 235 H Hemoglobin A1c Lactic Acid Calcium Phosphorus Magnesium Ferritin Total Bilirubin AST ALT Lactate Dehydrogenase C-Reactive Protein Albumin Triglycerides Arterial Blood Glucose Arterial Blood Ionized Calcium Urine Creatinine Coronavirus (PCR) Crossmatch 02/02/21 02/02/21 02/02/21 05:18 05:35 11:28 WBC RBC Hgb Hct MCV MCH MCHC RDW Plt Count Lymph % (Auto) Lymph # (Auto) Seg Neutrophils % Seg Neuts % (Manual) Lymphocytes % (Manual) Monocytes % (Manual) Nucleated RBC % Seg Neutrophils # Seg Neutrophils # Man Lymphocytes # (Manual) Monocytes # (Manual) Eosinophils # (Manual) INR D-Dimer ABG pH 7.195 L* POC ABG pCO2 POC ABG pO2 ABG pO2 72.5 L ABG HCO3 ABG O2 Saturation 91.2 L ABG Base Excess -5.3 L ABG Hemoglobin 6.0 L ABG Oxyhemoglobin ABG Sodium ABG Potassium ABG Chloride ABG Glucose Oxyhemoglobin 89.1 L Carboxyhemoglobin Sodium Potassium Chloride 110.4 H Carbon Dioxide BUN 92 H Creatinine Glucose POC Glucose 239 H Hemoglobin A1c Lactic Acid Calcium Phosphorus Magnesium Ferritin Total Bilirubin AST ALT Lactate Dehydrogenase C-Reactive Protein Albumin Triglycerides Arterial Blood Glucose Arterial Blood Ionized Calcium Urine Creatinine Coronavirus (PCR) Crossmatch 02/02/21 02/02/21 02/02/21 11:53 16:00 18:04 WBC RBC Hgb Hct MCV MCH MCHC RDW Plt Count Lymph % (Auto) Lymph # (Auto) Seg Neutrophils % Seg Neuts % (Manual) Lymphocytes % (Manual) Monocytes % (Manual) Nucleated RBC % Seg Neutrophils # Seg Neutrophils # Man Lymphocytes # (Manual) Monocytes # (Manual) Eosinophils # (Manual) INR D-Dimer ABG pH POC ABG pCO2 POC ABG pO2 ABG pO2 ABG HCO3 ABG O2 Saturation ABG Base Excess ABG Hemoglobin ABG Oxyhemoglobin ABG Sodium ABG Potassium ABG Chloride ABG Glucose Oxyhemoglobin Carboxyhemoglobin Sodium Potassium Chloride Carbon Dioxide BUN Creatinine Glucose POC Glucose 248 H 199 H Hemoglobin A1c 6.3 H Lactic Acid Calcium Phosphorus Magnesium Ferritin Total Bilirubin AST ALT Lactate Dehydrogenase C-Reactive Protein Albumin Triglycerides Arterial Blood Glucose Arterial Blood Ionized Calcium Urine Creatinine Coronavirus (PCR) Crossmatch 02/02/21 02/03/21 02/03/21 23:31 03:12 04:10 WBC RBC 3.06 L Hgb 9.7 L Hct 30.4 L MCV 99 H MCH MCHC RDW 15.3 H Plt Count Lymph % (Auto) 6.1 L Lymph # (Auto) 0.5 L Seg Neutrophils % 86.1 H Seg Neuts % (Manual) Lymphocytes % (Manual) Monocytes % (Manual) Nucleated RBC % Seg Neutrophils # Seg Neutrophils # Man Lymphocytes # (Manual) Monocytes # (Manual) Eosinophils # (Manual) INR D-Dimer ABG pH 7.199 L POC ABG pCO2 48.3 H POC ABG pO2 68.3 L ABG pO2 ABG HCO3 ABG O2 Saturation ABG Base Excess ABG Hemoglobin 10.2 L ABG Oxyhemoglobin 89.2 L ABG Sodium 155.0 H ABG Potassium 4.6 H ABG Chloride 121.0 H ABG Glucose 166 H Oxyhemoglobin Carboxyhemoglobin 0.3 L Sodium Potassium Chloride Carbon Dioxide BUN Creatinine Glucose POC Glucose 200 H Hemoglobin A1c Lactic Acid Calcium Phosphorus Magnesium Ferritin Total Bilirubin AST ALT Lactate Dehydrogenase C-Reactive Protein Albumin Triglycerides Arterial Blood Glucose 166 H Arterial Blood Ionized Calcium 4.1 L Urine Creatinine Coronavirus (PCR) Crossmatch 02/03/21 02/03/21 02/03/21 04:10 05:34 11:51 WBC RBC Hgb Hct MCV MCH MCHC RDW Plt Count Lymph % (Auto) Lymph # (Auto) Seg Neutrophils % Seg Neuts % (Manual) Lymphocytes % (Manual) Monocytes % (Manual) Nucleated RBC % Seg Neutrophils # Seg Neutrophils # Man Lymphocytes # (Manual) Monocytes # (Manual) Eosinophils # (Manual) INR D-Dimer ABG pH POC ABG pCO2 POC ABG pO2 ABG pO2 ABG HCO3 ABG O2 Saturation ABG Base Excess ABG Hemoglobin ABG Oxyhemoglobin ABG Sodium ABG Potassium ABG Chloride ABG Glucose Oxyhemoglobin Carboxyhemoglobin Sodium 154 H D Potassium Chloride 116.7 H Carbon Dioxide 20 L BUN 130 H Creatinine 9.2 H D Glucose 160 H POC Glucose 130 H 154 H Hemoglobin A1c Lactic Acid Calcium 6.7 L Phosphorus 8.60 H Magnesium Ferritin Total Bilirubin AST ALT Lactate Dehydrogenase C-Reactive Protein Albumin Triglycerides Arterial Blood Glucose Arterial Blood Ionized Calcium Urine Creatinine Coronavirus (PCR) Crossmatch 02/03/21 02/03/21 02/04/21 16:49 23:22 03:48 WBC RBC Hgb Hct MCV MCH MCHC RDW Plt Count Lymph % (Auto) Lymph # (Auto) Seg Neutrophils % Seg Neuts % (Manual) Lymphocytes % (Manual) Monocytes % (Manual) Nucleated RBC % Seg Neutrophils # Seg Neutrophils # Man Lymphocytes # (Manual) Monocytes # (Manual) Eosinophils # (Manual) INR D-Dimer ABG pH 7.201 L POC ABG pCO2 54.5 H POC ABG pO2 74.0 L ABG pO2 ABG HCO3 ABG O2 Saturation ABG Base Excess ABG Hemoglobin 9.7 L ABG Oxyhemoglobin 91.1 L ABG Sodium 146.2 H ABG Potassium ABG Chloride 114.0 H ABG Glucose 155 H Oxyhemoglobin Carboxyhemoglobin Sodium Potassium Chloride Carbon Dioxide BUN Creatinine Glucose POC Glucose 164 H 152 H Hemoglobin A1c Lactic Acid Calcium Phosphorus Magnesium Ferritin Total Bilirubin AST ALT Lactate Dehydrogenase C-Reactive Protein Albumin Triglycerides Arterial Blood Glucose 155 H Arterial Blood Ionized Calcium 3.9 L Urine Creatinine Coronavirus (PCR) Crossmatch 02/04/21 02/04/21 02/04/21 04:45 04:45 04:45 WBC RBC 2.75 L Hgb 9.1 L Hct 26.9 L MCV 98 H MCH 33 H MCHC RDW Plt Count Lymph % (Auto) 6.8 L Lymph # (Auto) 0.5 L Seg Neutrophils % 87.2 H Seg Neuts % (Manual) Lymphocytes % (Manual) Monocytes % (Manual) Nucleated RBC % Seg Neutrophils # Seg Neutrophils # Man Lymphocytes # (Manual) Monocytes # (Manual) Eosinophils # (Manual) INR D-Dimer ABG pH POC ABG pCO2 POC ABG pO2 ABG pO2 ABG HCO3 ABG O2 Saturation ABG Base Excess ABG Hemoglobin ABG Oxyhemoglobin ABG Sodium ABG Potassium ABG Chloride ABG Glucose Oxyhemoglobin Carboxyhemoglobin Sodium 149 H Potassium Chloride 111.5 H Carbon Dioxide BUN 99 H Creatinine 8.5 H Glucose 139 H POC Glucose Hemoglobin A1c Lactic Acid Calcium 6.8 L Phosphorus 8.40 H Magnesium Ferritin Total Bilirubin AST ALT Lactate Dehydrogenase C-Reactive Protein Albumin Triglycerides Arterial Blood Glucose Arterial Blood Ionized Calcium Urine Creatinine Coronavirus (PCR) Crossmatch 02/04/21 02/04/21 02/04/21 06:05 11:44 18:00 WBC RBC Hgb Hct MCV MCH MCHC RDW Plt Count Lymph % (Auto) Lymph # (Auto) Seg Neutrophils % Seg Neuts % (Manual) Lymphocytes % (Manual) Monocytes % (Manual) Nucleated RBC % Seg Neutrophils # Seg Neutrophils # Man Lymphocytes # (Manual) Monocytes # (Manual) Eosinophils # (Manual) INR D-Dimer ABG pH POC ABG pCO2 POC ABG pO2 ABG pO2 ABG HCO3 ABG O2 Saturation ABG Base Excess ABG Hemoglobin ABG Oxyhemoglobin ABG Sodium ABG Potassium ABG Chloride ABG Glucose Oxyhemoglobin Carboxyhemoglobin Sodium Potassium Chloride Carbon Dioxide BUN Creatinine Glucose POC Glucose 138 H 129 H 163 H Hemoglobin A1c Lactic Acid Calcium Phosphorus Magnesium Ferritin Total Bilirubin AST ALT Lactate Dehydrogenase C-Reactive Protein Albumin Triglycerides Arterial Blood Glucose Arterial Blood Ionized Calcium Urine Creatinine Coronavirus (PCR) Crossmatch 02/04/21 02/05/21 02/05/21 23:48 01:50 01:50 WBC RBC 2.43 L Hgb 8.3 L Hct 23.6 L MCV 97 H MCH 34 H MCHC 35 H RDW Plt Count 137 L Lymph % (Auto) 8.4 L Lymph # (Auto) 0.6 L Seg Neutrophils % 86.1 H Seg Neuts % (Manual) Lymphocytes % (Manual) Monocytes % (Manual) Nucleated RBC % Seg Neutrophils # Seg Neutrophils # Man Lymphocytes # (Manual) Monocytes # (Manual) Eosinophils # (Manual) INR D-Dimer ABG pH POC ABG pCO2 POC ABG pO2 ABG pO2 ABG HCO3 ABG O2 Saturation ABG Base Excess ABG Hemoglobin ABG Oxyhemoglobin ABG Sodium ABG Potassium ABG Chloride ABG Glucose Oxyhemoglobin Carboxyhemoglobin Sodium Potassium Chloride Carbon Dioxide BUN Creatinine Glucose POC Glucose 157 H Hemoglobin A1c Lactic Acid Calcium Phosphorus 5.60 H D Magnesium Ferritin Total Bilirubin AST ALT Lactate Dehydrogenase C-Reactive Protein Albumin Triglycerides Arterial Blood Glucose Arterial Blood Ionized Calcium Urine Creatinine Coronavirus (PCR) Crossmatch 02/05/21 02/05/21 02/05/21 03:44 05:27 09:15 WBC RBC Hgb Hct MCV MCH MCHC RDW Plt Count Lymph % (Auto) Lymph # (Auto) Seg Neutrophils % Seg Neuts % (Manual) Lymphocytes % (Manual) Monocytes % (Manual) Nucleated RBC % Seg Neutrophils # Seg Neutrophils # Man Lymphocytes # (Manual) Monocytes # (Manual) Eosinophils # (Manual) INR D-Dimer ABG pH 7.202 L POC ABG pCO2 63.7 H POC ABG pO2 69.0 L ABG pO2 ABG HCO3 ABG O2 Saturation ABG Base Excess ABG Hemoglobin 9.4 L ABG Oxyhemoglobin ABG Sodium ABG Potassium ABG Chloride 108.0 H ABG Glucose 186 H Oxyhemoglobin Carboxyhemoglobin Sodium Potassium Chloride Carbon Dioxide BUN 78 H Creatinine 8.0 H Glucose 163 H POC Glucose 157 H Hemoglobin A1c Lactic Acid Calcium 6.3 L Phosphorus Magnesium Ferritin Total Bilirubin AST ALT Lactate Dehydrogenase C-Reactive Protein Albumin Triglycerides Arterial Blood Glucose 186 H Arterial Blood Ionized Calcium 3.9 L Urine Creatinine Coronavirus (PCR) Crossmatch 02/05/21 02/05/21 02/05/21 11:47 17:39 23:40 WBC RBC Hgb Hct MCV MCH MCHC RDW Plt Count Lymph % (Auto) Lymph # (Auto) Seg Neutrophils % Seg Neuts % (Manual) Lymphocytes % (Manual) Monocytes % (Manual) Nucleated RBC % Seg Neutrophils # Seg Neutrophils # Man Lymphocytes # (Manual) Monocytes # (Manual) Eosinophils # (Manual) INR D-Dimer ABG pH 7.273 L POC ABG pCO2 62.1 H POC ABG pO2 72.0 L ABG pO2 ABG HCO3 ABG O2 Saturation ABG Base Excess ABG Hemoglobin 9.1 L ABG Oxyhemoglobin 91.3 L ABG Sodium ABG Potassium 3.1 L ABG Chloride ABG Glucose 125 H Oxyhemoglobin Carboxyhemoglobin Sodium Potassium Chloride Carbon Dioxide BUN Creatinine Glucose POC Glucose 126 H 126 H Hemoglobin A1c Lactic Acid Calcium Phosphorus Magnesium Ferritin Total Bilirubin AST ALT Lactate Dehydrogenase C-Reactive Protein Albumin Triglycerides Arterial Blood Glucose 125 H Arterial Blood Ionized Calcium 4.0 L Urine Creatinine Coronavirus (PCR) Crossmatch 02/06/21 02/06/21 02/06/21 04:30 04:57 09:45 WBC RBC Hgb Hct MCV MCH MCHC RDW Plt Count Lymph % (Auto) Lymph # (Auto) Seg Neutrophils % Seg Neuts % (Manual) Lymphocytes % (Manual) Monocytes % (Manual) Nucleated RBC % Seg Neutrophils # Seg Neutrophils # Man Lymphocytes # (Manual) Monocytes # (Manual) Eosinophils # (Manual) INR D-Dimer ABG pH 7.159 L 7.138 L* POC ABG pCO2 76.3 H POC ABG pO2 66.9 L ABG pO2 ABG HCO3 ABG O2 Saturation 93.4 L ABG Base Excess -6.0 L ABG Hemoglobin 11.2 L 11.7 L ABG Oxyhemoglobin 88.2 L ABG Sodium ABG Potassium ABG Chloride ABG Glucose 134 H Oxyhemoglobin 91.2 L Carboxyhemoglobin Sodium Potassium Chloride Carbon Dioxide BUN Creatinine Glucose POC Glucose 124 H Hemoglobin A1c Lactic Acid Calcium Phosphorus Magnesium Ferritin Total Bilirubin AST ALT Lactate Dehydrogenase C-Reactive Protein Albumin Triglycerides Arterial Blood Glucose 134 H Arterial Blood Ionized Calcium 3.9 L Urine Creatinine Coronavirus (PCR) Crossmatch 02/06/21 02/06/21 02/06/21 11:11 17:00 17:00 WBC RBC Hgb Hct MCV MCH MCHC RDW Plt Count Lymph % (Auto) Lymph # (Auto) Seg Neutrophils % Seg Neuts % (Manual) Lymphocytes % (Manual) Monocytes % (Manual) Nucleated RBC % Seg Neutrophils # Seg Neutrophils # Man Lymphocytes # (Manual) Monocytes # (Manual) Eosinophils # (Manual) INR D-Dimer ABG pH 7.158 L* POC ABG pCO2 POC ABG pO2 ABG pO2 109.8 H ABG HCO3 28.7 H ABG O2 Saturation ABG Base Excess -2.5 L ABG Hemoglobin ABG Oxyhemoglobin ABG Sodium ABG Potassium ABG Chloride ABG Glucose Oxyhemoglobin 94.5 L Carboxyhemoglobin Sodium Potassium Chloride Carbon Dioxide BUN Creatinine Glucose POC Glucose 120 H Hemoglobin A1c Lactic Acid Calcium Phosphorus Magnesium Ferritin Total Bilirubin AST ALT Lactate Dehydrogenase C-Reactive Protein Albumin Triglycerides 503 H Arterial Blood Glucose Arterial Blood Ionized Calcium Urine Creatinine Coronavirus (PCR) Crossmatch 02/06/21 02/06/21 02/06/21 17:28 20:16 Unknown WBC 13.5 H RBC 2.98 L Hgb 9.3 L Hct 28.6 L MCV 96 H MCH MCHC RDW Plt Count Lymph % (Auto) Lymph # (Auto) Seg Neutrophils % Seg Neuts % (Manual) 87.0 H Lymphocytes % (Manual) 7.0 L Monocytes % (Manual) Nucleated RBC % Seg Neutrophils # Seg Neutrophils # Man 11.7 H Lymphocytes # (Manual) 0.9 L Monocytes # (Manual) Eosinophils # (Manual) 0.5 H INR D-Dimer ABG pH POC ABG pCO2 POC ABG pO2 ABG pO2 ABG HCO3 ABG O2 Saturation ABG Base Excess ABG Hemoglobin ABG Oxyhemoglobin ABG Sodium ABG Potassium ABG Chloride ABG Glucose Oxyhemoglobin Carboxyhemoglobin Sodium Potassium Chloride Carbon Dioxide BUN Creatinine Glucose POC Glucose 147 H 164 H Hemoglobin A1c Lactic Acid Calcium Phosphorus Magnesium Ferritin Total Bilirubin AST ALT Lactate Dehydrogenase C-Reactive Protein Albumin Triglycerides Arterial Blood Glucose Arterial Blood Ionized Calcium Urine Creatinine Coronavirus (PCR) Crossmatch 02/06/21 02/07/21 02/07/21 Unknown : 04:00 WBC 12.0 H RBC 2.61 L Hgb 8.2 L Hct 24.5 L MCV MCH MCHC RDW Plt Count Lymph % (Auto) 8.9 L Lymph # (Auto) 1.1 L Seg Neutrophils % 86.3 H Seg Neuts % (Manual) Lymphocytes % (Manual) Monocytes % (Manual) Nucleated RBC % Seg Neutrophils # 10.3 H Seg Neutrophils # Man Lymphocytes # (Manual) Monocytes # (Manual) Eosinophils # (Manual) INR D-Dimer ABG pH POC ABG pCO2 POC ABG pO2 ABG pO2 ABG HCO3 ABG O2 Saturation ABG Base Excess ABG Hemoglobin ABG Oxyhemoglobin ABG Sodium ABG Potassium ABG Chloride ABG Glucose Oxyhemoglobin Carboxyhemoglobin Sodium Potassium 3.5 L Chloride Carbon Dioxide BUN 58 H Creatinine 6.6 H Glucose 107 H POC Glucose 173 H Hemoglobin A1c Lactic Acid Calcium 6.7 L Phosphorus 8.00 H D Magnesium Ferritin Total Bilirubin AST ALT Lactate Dehydrogenase C-Reactive Protein Albumin Triglycerides Arterial Blood Glucose Arterial Blood Ionized Calcium Urine Creatinine Coronavirus (PCR) Crossmatch 02/07/21 02/07/21 02/07/21 04:00 04:45 11:49 WBC RBC Hgb Hct MCV MCH MCHC RDW Plt Count Lymph % (Auto) Lymph # (Auto) Seg Neutrophils % Seg Neuts % (Manual) Lymphocytes % (Manual) Monocytes % (Manual) Nucleated RBC % Seg Neutrophils # Seg Neutrophils # Man Lymphocytes # (Manual) Monocytes # (Manual) Eosinophils # (Manual) INR D-Dimer ABG pH 7.287 L POC ABG pCO2 64.8 H POC ABG pO2 74.0 L ABG pO2 ABG HCO3 ABG O2 Saturation ABG Base Excess ABG Hemoglobin 9.1 L ABG Oxyhemoglobin 92.0 L ABG Sodium ABG Potassium 2.8 L ABG Chloride ABG Glucose 226 H Oxyhemoglobin Carboxyhemoglobin Sodium Potassium Chloride Carbon Dioxide BUN Creatinine Glucose POC Glucose 170 H Hemoglobin A1c Lactic Acid Calcium Phosphorus 5.50 H D Magnesium Ferritin Total Bilirubin AST ALT Lactate Dehydrogenase C-Reactive Protein Albumin Triglycerides Arterial Blood Glucose 226 H Arterial Blood Ionized Calcium 3.7 L Urine Creatinine Coronavirus (PCR) Crossmatch 02/07/21 02/07/21 02/07/21 13:48 17:45 23:02 WBC RBC Hgb Hct MCV MCH MCHC RDW Plt Count Lymph % (Auto) Lymph # (Auto) Seg Neutrophils % Seg Neuts % (Manual) Lymphocytes % (Manual) Monocytes % (Manual) Nucleated RBC % Seg Neutrophils # Seg Neutrophils # Man Lymphocytes # (Manual) Monocytes # (Manual) Eosinophils # (Manual) INR D-Dimer ABG pH POC ABG pCO2 POC ABG pO2 ABG pO2 ABG HCO3 ABG O2 Saturation ABG Base Excess ABG Hemoglobin ABG Oxyhemoglobin ABG Sodium ABG Potassium ABG Chloride ABG Glucose Oxyhemoglobin Carboxyhemoglobin Sodium 136 L Potassium 2.6 L* D Chloride 95.1 L Carbon Dioxide 33 H D BUN 30 H Creatinine 3.6 H Glucose 184 H POC Glucose 172 H 172 H Hemoglobin A1c Lactic Acid Calcium 6.9 L Phosphorus Magnesium Ferritin Total Bilirubin AST ALT Lactate Dehydrogenase C-Reactive Protein Albumin Triglycerides Arterial Blood Glucose Arterial Blood Ionized Calcium Urine Creatinine Coronavirus (PCR) Crossmatch 02/08/21 02/08/21 02/08/21 05:22 06:00 06:00 WBC RBC 2.21 L Hgb 7.2 L Hct 21.0 L MCV 95 H MCH MCHC RDW Plt Count Lymph % (Auto) Lymph # (Auto) Seg Neutrophils % Seg Neuts % (Manual) 87.0 H Lymphocytes % (Manual) 4.0 L Monocytes % (Manual) Nucleated RBC % Seg Neutrophils # Seg Neutrophils # Man 8.5 H Lymphocytes # (Manual) 0.4 L Monocytes # (Manual) Eosinophils # (Manual) INR D-Dimer ABG pH POC ABG pCO2 POC ABG pO2 ABG pO2 ABG HCO3 ABG O2 Saturation ABG Base Excess ABG Hemoglobin ABG Oxyhemoglobin ABG Sodium ABG Potassium ABG Chloride ABG Glucose Oxyhemoglobin Carboxyhemoglobin Sodium 136 L Potassium 2.4 L* Chloride 93.1 L Carbon Dioxide 36 H BUN 43 H Creatinine 5.4 H Glucose 167 H POC Glucose 162 H Hemoglobin A1c Lactic Acid Calcium 6.3 L Phosphorus Magnesium Ferritin Total Bilirubin AST ALT Lactate Dehydrogenase C-Reactive Protein Albumin Triglycerides Arterial Blood Glucose Arterial Blood Ionized Calcium Urine Creatinine Coronavirus (PCR) Crossmatch 02/08/21 02/08/21 02/08/21 11:44 17:53 18:56 WBC RBC Hgb Hct MCV MCH MCHC RDW Plt Count Lymph % (Auto) Lymph # (Auto) Seg Neutrophils % Seg Neuts % (Manual) Lymphocytes % (Manual) Monocytes % (Manual) Nucleated RBC % Seg Neutrophils # Seg Neutrophils # Man Lymphocytes # (Manual) Monocytes # (Manual) Eosinophils # (Manual) INR D-Dimer ABG pH POC ABG pCO2 POC ABG pO2 ABG pO2 ABG HCO3 ABG O2 Saturation ABG Base Excess ABG Hemoglobin ABG Oxyhemoglobin ABG Sodium ABG Potassium ABG Chloride ABG Glucose Oxyhemoglobin Carboxyhemoglobin Sodium Potassium 2.9 L* D Chloride Carbon Dioxide BUN Creatinine Glucose POC Glucose 164 H 154 H Hemoglobin A1c Lactic Acid Calcium Phosphorus Magnesium Ferritin Total Bilirubin AST ALT Lactate Dehydrogenase C-Reactive Protein Albumin Triglycerides Arterial Blood Glucose Arterial Blood Ionized Calcium Urine Creatinine Coronavirus (PCR) Crossmatch 02/08/21 02/08/21 02/09/21 23:24 23:58 03:21 WBC RBC Hgb Hct MCV MCH MCHC RDW Plt Count Lymph % (Auto) Lymph # (Auto) Seg Neutrophils % Seg Neuts % (Manual) Lymphocytes % (Manual) Monocytes % (Manual) Nucleated RBC % Seg Neutrophils # Seg Neutrophils # Man Lymphocytes # (Manual) Monocytes # (Manual) Eosinophils # (Manual) INR D-Dimer ABG pH 7.319 L POC ABG pCO2 63.3 H 68.3 H POC ABG pO2 71.2 L 76.5 L ABG pO2 ABG HCO3 ABG O2 Saturation ABG Base Excess ABG Hemoglobin 8.2 L 7.0 L ABG Oxyhemoglobin 91.8 L 92.2 L ABG Sodium 134.6 L 133.0 L ABG Potassium 2.3 L 3.1 L ABG Chloride 96.0 L 95.0 L ABG Glucose 184 H 154 H Oxyhemoglobin Carboxyhemoglobin Sodium Potassium Chloride Carbon Dioxide BUN Creatinine Glucose POC Glucose 152 H Hemoglobin A1c Lactic Acid Calcium Phosphorus Magnesium Ferritin Total Bilirubin AST ALT Lactate Dehydrogenase C-Reactive Protein Albumin Triglycerides Arterial Blood Glucose 184 H 154 H Arterial Blood Ionized Calcium 3.6 L 3.5 L Urine Creatinine Coronavirus (PCR) Crossmatch 02/09/21 02/09/21 02/09/21 05:10 05:10 06:04 WBC RBC 2.14 L Hgb 7.0 L Hct 20.5 L MCV 96 H MCH 33 H MCHC RDW Plt Count Lymph % (Auto) Lymph # (Auto) Seg Neutrophils % Seg Neuts % (Manual) 82.0 H Lymphocytes % (Manual) 9.0 L Monocytes % (Manual) Nucleated RBC % 1.0 H Seg Neutrophils # Seg Neutrophils # Man 8.9 H Lymphocytes # (Manual) 1.0 L Monocytes # (Manual) Eosinophils # (Manual) INR D-Dimer ABG pH POC ABG pCO2 POC ABG pO2 ABG pO2 ABG HCO3 ABG O2 Saturation ABG Base Excess ABG Hemoglobin ABG Oxyhemoglobin ABG Sodium ABG Potassium ABG Chloride ABG Glucose Oxyhemoglobin Carboxyhemoglobin Sodium 135 L Potassium 3.2 L Chloride 91.0 L Carbon Dioxide 32 H BUN 54 H Creatinine 6.6 H Glucose 163 H POC Glucose 149 H Hemoglobin A1c Lactic Acid Calcium 6.2 L Phosphorus Magnesium Ferritin Total Bilirubin AST ALT Lactate Dehydrogenase C-Reactive Protein Albumin Triglycerides Arterial Blood Glucose Arterial Blood Ionized Calcium Urine Creatinine Coronavirus (PCR) Crossmatch 02/09/21 02/09/21 02/09/21 12:02 13:32 13:40 WBC RBC Hgb Hct MCV MCH MCHC RDW Plt Count Lymph % (Auto) Lymph # (Auto) Seg Neutrophils % Seg Neuts % (Manual) Lymphocytes % (Manual) Monocytes % (Manual) Nucleated RBC % Seg Neutrophils # Seg Neutrophils # Man Lymphocytes # (Manual) Monocytes # (Manual) Eosinophils # (Manual) INR D-Dimer ABG pH POC ABG pCO2 POC ABG pO2 ABG pO2 ABG HCO3 ABG O2 Saturation ABG Base Excess ABG Hemoglobin ABG Oxyhemoglobin ABG Sodium ABG Potassium ABG Chloride ABG Glucose Oxyhemoglobin Carboxyhemoglobin Sodium Potassium Chloride Carbon Dioxide BUN Creatinine Glucose POC Glucose 147 H Hemoglobin A1c Lactic Acid Calcium Phosphorus Magnesium Ferritin Total Bilirubin AST ALT Lactate Dehydrogenase C-Reactive Protein Albumin Triglycerides 250 H Arterial Blood Glucose Arterial Blood Ionized Calcium Urine Creatinine Coronavirus (PCR) Crossmatch See Detail 02/09/21 02/09/21 02/10/21 18:06 23:42 04:00 WBC RBC Hgb Hct MCV MCH MCHC RDW Plt Count Lymph % (Auto) Lymph # (Auto) Seg Neutrophils % Seg Neuts % (Manual) Lymphocytes % (Manual) Monocytes % (Manual) Nucleated RBC % Seg Neutrophils # Seg Neutrophils # Man Lymphocytes # (Manual) Monocytes # (Manual) Eosinophils # (Manual) INR D-Dimer ABG pH POC ABG pCO2 65.8 H POC ABG pO2 68.0 L ABG pO2 ABG HCO3 ABG O2 Saturation ABG Base Excess ABG Hemoglobin 8.3 L ABG Oxyhemoglobin ABG Sodium 132.4 L ABG Potassium 2.9 L ABG Chloride 92.0 L ABG Glucose 174 H Oxyhemoglobin Carboxyhemoglobin Sodium Potassium Chloride Carbon Dioxide BUN Creatinine Glucose POC Glucose 152 H 147 H Hemoglobin A1c Lactic Acid Calcium Phosphorus Magnesium Ferritin Total Bilirubin AST ALT Lactate Dehydrogenase C-Reactive Protein Albumin Triglycerides Arterial Blood Glucose 174 H Arterial Blood Ionized Calcium 3.4 L Urine Creatinine Coronavirus (PCR) Crossmatch 02/10/21 02/10/21 02/10/21 05:32 11:29 14:08 WBC 12.5 H RBC 2.14 L Hgb 6.6 L Hct 20.2 L MCV MCH MCHC RDW Plt Count Lymph % (Auto) Lymph # (Auto) Seg Neutrophils % Seg Neuts % (Manual) Lymphocytes % (Manual) Monocytes % (Manual) Nucleated RBC % Seg Neutrophils # Seg Neutrophils # Man Lymphocytes # (Manual) Monocytes # (Manual) Eosinophils # (Manual) INR D-Dimer ABG pH POC ABG pCO2 POC ABG pO2 ABG pO2 ABG HCO3 ABG O2 Saturation ABG Base Excess ABG Hemoglobin ABG Oxyhemoglobin ABG Sodium ABG Potassium ABG Chloride ABG Glucose Oxyhemoglobin Carboxyhemoglobin Sodium Potassium Chloride Carbon Dioxide BUN Creatinine Glucose POC Glucose 167 H 147 H Hemoglobin A1c Lactic Acid Calcium Phosphorus Magnesium Ferritin Total Bilirubin AST ALT Lactate Dehydrogenase C-Reactive Protein Albumin Triglycerides Arterial Blood Glucose Arterial Blood Ionized Calcium Urine Creatinine Coronavirus (PCR) Crossmatch 02/10/21 02/10/21 02/10/21 14:08 18:11 22:32 WBC RBC Hgb 6.4 L Hct 19.1 L* MCV MCH MCHC RDW Plt Count Lymph % (Auto) Lymph # (Auto) Seg Neutrophils % Seg Neuts % (Manual) Lymphocytes % (Manual) Monocytes % (Manual) Nucleated RBC % Seg Neutrophils # Seg Neutrophils # Man Lymphocytes # (Manual) Monocytes # (Manual) Eosinophils # (Manual) INR D-Dimer ABG pH POC ABG pCO2 POC ABG pO2 ABG pO2 ABG HCO3 ABG O2 Saturation ABG Base Excess ABG Hemoglobin ABG Oxyhemoglobin ABG Sodium ABG Potassium ABG Chloride ABG Glucose Oxyhemoglobin Carboxyhemoglobin Sodium 136 L Potassium 2.9 L* Chloride 90.2 L Carbon Dioxide 33 H BUN 42 H Creatinine 7.5 H Glucose 155 H POC Glucose 173 H Hemoglobin A1c Lactic Acid Calcium 6.1 L Phosphorus Magnesium Ferritin Total Bilirubin AST ALT Lactate Dehydrogenase C-Reactive Protein Albumin Triglycerides Arterial Blood Glucose Arterial Blood Ionized Calcium Urine Creatinine Coronavirus (PCR) Crossmatch 02/11/21 02/11/21 02/11/21 00:28 04:05 04:30 WBC RBC Hgb Hct MCV MCH MCHC RDW Plt Count Lymph % (Auto) Lymph # (Auto) Seg Neutrophils % Seg Neuts % (Manual) Lymphocytes % (Manual) Monocytes % (Manual) Nucleated RBC % Seg Neutrophils # Seg Neutrophils # Man Lymphocytes # (Manual) Monocytes # (Manual) Eosinophils # (Manual) INR D-Dimer ABG pH 7.307 L POC ABG pCO2 72.2 H POC ABG pO2 72.3 L ABG pO2 ABG HCO3 ABG O2 Saturation ABG Base Excess ABG Hemoglobin 8.2 L ABG Oxyhemoglobin ABG Sodium 132.3 L ABG Potassium 3.2 L ABG Chloride 91.0 L ABG Glucose 197 H Oxyhemoglobin Carboxyhemoglobin Sodium 135 L Potassium 3.3 L Chloride 87.1 L Carbon Dioxide 36 H BUN 71 H Creatinine 7.9 H Glucose 263 H POC Glucose 192 H Hemoglobin A1c Lactic Acid Calcium 6.2 L Phosphorus Magnesium Ferritin Total Bilirubin AST ALT Lactate Dehydrogenase C-Reactive Protein Albumin Triglycerides Arterial Blood Glucose 197 H Arterial Blood Ionized Calcium 3.3 L Urine Creatinine Coronavirus (PCR) Crossmatch 02/11/21 02/11/21 02/11/21 04:30 05:47 08:27 WBC RBC 2.22 L Hgb 7.2 L Hct 21.0 L MCV MCH MCHC RDW Plt Count Lymph % (Auto) 8.7 L Lymph # (Auto) 0.9 L Seg Neutrophils % 85.5 H Seg Neuts % (Manual) Lymphocytes % (Manual) Monocytes % (Manual) Nucleated RBC % Seg Neutrophils # 9.2 H Seg Neutrophils # Man Lymphocytes # (Manual) Monocytes # (Manual) Eosinophils # (Manual) INR 1.17 H D-Dimer 1930.92 H ABG pH POC ABG pCO2 POC ABG pO2 ABG pO2 ABG HCO3 ABG O2 Saturation ABG Base Excess ABG Hemoglobin ABG Oxyhemoglobin ABG Sodium ABG Potassium ABG Chloride ABG Glucose Oxyhemoglobin Carboxyhemoglobin Sodium Potassium Chloride Carbon Dioxide BUN Creatinine Glucose POC Glucose 189 H Hemoglobin A1c Lactic Acid Calcium Phosphorus Magnesium Ferritin Total Bilirubin AST ALT Lactate Dehydrogenase C-Reactive Protein Albumin Triglycerides Arterial Blood Glucose Arterial Blood Ionized Calcium Urine Creatinine Coronavirus (PCR) Crossmatch 02/11/21 02/11/21 02/11/21 09:00 09:00 13:18 WBC RBC Hgb Hct MCV MCH MCHC RDW Plt Count Lymph % (Auto) Lymph # (Auto) Seg Neutrophils % Seg Neuts % (Manual) Lymphocytes % (Manual) Monocytes % (Manual) Nucleated RBC % Seg Neutrophils # Seg Neutrophils # Man Lymphocytes # (Manual) Monocytes # (Manual) Eosinophils # (Manual) INR D-Dimer ABG pH POC ABG pCO2 POC ABG pO2 ABG pO2 ABG HCO3 ABG O2 Saturation ABG Base Excess ABG Hemoglobin ABG Oxyhemoglobin ABG Sodium ABG Potassium ABG Chloride ABG Glucose Oxyhemoglobin Carboxyhemoglobin Sodium Potassium Chloride Carbon Dioxide BUN Creatinine Glucose 126 H POC Glucose 160 H Hemoglobin A1c Lactic Acid Calcium Phosphorus Magnesium Ferritin 1253.0 H Total Bilirubin AST ALT Lactate Dehydrogenase 649 H C-Reactive Protein 12.60 H Albumin Triglycerides Arterial Blood Glucose Arterial Blood Ionized Calcium Urine Creatinine Coronavirus (PCR) Crossmatch 02/11/21 02/11/21 02/11/21 14:30 16:59 22:34 WBC RBC Hgb 7.1 L 6.7 L Hct 20.5 L 19.9 L* MCV MCH MCHC RDW Plt Count Lymph % (Auto) Lymph # (Auto) Seg Neutrophils % Seg Neuts % (Manual) Lymphocytes % (Manual) Monocytes % (Manual) Nucleated RBC % Seg Neutrophils # Seg Neutrophils # Man Lymphocytes # (Manual) Monocytes # (Manual) Eosinophils # (Manual) INR D-Dimer ABG pH POC ABG pCO2 POC ABG pO2 ABG pO2 ABG HCO3 ABG O2 Saturation ABG Base Excess ABG Hemoglobin ABG Oxyhemoglobin ABG Sodium ABG Potassium ABG Chloride ABG Glucose Oxyhemoglobin Carboxyhemoglobin Sodium Potassium Chloride Carbon Dioxide BUN Creatinine Glucose POC Glucose 151 H Hemoglobin A1c Lactic Acid Calcium Phosphorus Magnesium Ferritin Total Bilirubin AST ALT Lactate Dehydrogenase C-Reactive Protein Albumin Triglycerides Arterial Blood Glucose Arterial Blood Ionized Calcium Urine Creatinine Coronavirus (PCR) Crossmatch 02/11/21 02/12/21 02/12/21 23:42 04:41 05:19 WBC RBC Hgb Hct MCV MCH MCHC RDW Plt Count Lymph % (Auto) Lymph # (Auto) Seg Neutrophils % Seg Neuts % (Manual) Lymphocytes % (Manual) Monocytes % (Manual) Nucleated RBC % Seg Neutrophils # Seg Neutrophils # Man Lymphocytes # (Manual) Monocytes # (Manual) Eosinophils # (Manual) INR D-Dimer ABG pH POC ABG pCO2 POC ABG pO2 ABG pO2 69.0 L ABG HCO3 32.5 H ABG O2 Saturation ABG Base Excess 7.7 H ABG Hemoglobin 5.1 L ABG Oxyhemoglobin ABG Sodium ABG Potassium ABG Chloride ABG Glucose Oxyhemoglobin 94.7 L Carboxyhemoglobin Sodium Potassium Chloride Carbon Dioxide BUN Creatinine Glucose POC Glucose 165 H 153 H Hemoglobin A1c Lactic Acid Calcium Phosphorus Magnesium Ferritin Total Bilirubin AST ALT Lactate Dehydrogenase C-Reactive Protein Albumin Triglycerides Arterial Blood Glucose Arterial Blood Ionized Calcium Urine Creatinine Coronavirus (PCR) Crossmatch 02/12/21 02/12/21 02/12/21 06:35 06:35 08:40 WBC RBC 2.21 L Hgb 7.2 L Hct 20.7 L MCV MCH 33 H MCHC 35 H RDW Plt Count Lymph % (Auto) Lymph # (Auto) Seg Neutrophils % Seg Neuts % (Manual) Lymphocytes % (Manual) Monocytes % (Manual) Nucleated RBC % Seg Neutrophils # Seg Neutrophils # Man Lymphocytes # (Manual) Monocytes # (Manual) Eosinophils # (Manual) INR D-Dimer ABG pH POC ABG pCO2 POC ABG pO2 ABG pO2 ABG HCO3 ABG O2 Saturation ABG Base Excess ABG Hemoglobin ABG Oxyhemoglobin ABG Sodium ABG Potassium ABG Chloride ABG Glucose Oxyhemoglobin Carboxyhemoglobin Sodium 135 L Potassium 3.4 L Chloride 91.8 L Carbon Dioxide 36 H BUN 57 H Creatinine 6.8 H Glucose 163 H POC Glucose Hemoglobin A1c Lactic Acid Calcium 7.0 L Phosphorus Magnesium 1.60 L Ferritin Total Bilirubin AST ALT Lactate Dehydrogenase C-Reactive Protein Albumin Triglycerides Arterial Blood Glucose Arterial Blood Ionized Calcium Urine Creatinine Coronavirus (PCR) Crossmatch 02/12/21 02/12/21 02/12/21 10:45 12:04 17:19 WBC RBC Hgb Hct MCV MCH MCHC RDW Plt Count Lymph % (Auto) Lymph # (Auto) Seg Neutrophils % Seg Neuts % (Manual) Lymphocytes % (Manual) Monocytes % (Manual) Nucleated RBC % Seg Neutrophils # Seg Neutrophils # Man Lymphocytes # (Manual) Monocytes # (Manual) Eosinophils # (Manual) INR D-Dimer ABG pH POC ABG pCO2 POC ABG pO2 ABG pO2 ABG HCO3 ABG O2 Saturation ABG Base Excess ABG Hemoglobin ABG Oxyhemoglobin ABG Sodium ABG Potassium ABG Chloride ABG Glucose Oxyhemoglobin Carboxyhemoglobin Sodium Potassium Chloride Carbon Dioxide BUN Creatinine Glucose POC Glucose 165 H 165 H Hemoglobin A1c Lactic Acid Calcium Phosphorus Magnesium Ferritin Total Bilirubin AST ALT Lactate Dehydrogenase C-Reactive Protein Albumin Triglycerides 182 H Arterial Blood Glucose Arterial Blood Ionized Calcium Urine Creatinine Coronavirus (PCR) Crossmatch 02/12/21 02/13/21 02/13/21 23:18 05:00 05:36 WBC RBC Hgb Hct MCV MCH MCHC RDW Plt Count Lymph % (Auto) Lymph # (Auto) Seg Neutrophils % Seg Neuts % (Manual) Lymphocytes % (Manual) Monocytes % (Manual) Nucleated RBC % Seg Neutrophils # Seg Neutrophils # Man Lymphocytes # (Manual) Monocytes # (Manual) Eosinophils # (Manual) INR D-Dimer ABG pH POC ABG pCO2 60.8 H POC ABG pO2 76.4 L ABG pO2 ABG HCO3 ABG O2 Saturation ABG Base Excess ABG Hemoglobin 7.4 L ABG Oxyhemoglobin ABG Sodium 133.2 L ABG Potassium 3.3 L ABG Chloride 96.0 L ABG Glucose 168 H Oxyhemoglobin Carboxyhemoglobin Sodium Potassium Chloride Carbon Dioxide BUN Creatinine Glucose POC Glucose 163 H 151 H Hemoglobin A1c Lactic Acid Calcium Phosphorus Magnesium Ferritin Total Bilirubin AST ALT Lactate Dehydrogenase C-Reactive Protein Albumin Triglycerides Arterial Blood Glucose 168 H Arterial Blood Ionized Calcium 4.3 L Urine Creatinine Coronavirus (PCR) Crossmatch 02/13/21 02/13/21 02/13/21 06:40 06:40 06:40 WBC RBC 2.19 L Hgb 7.0 L Hct 20.8 L MCV 95 H MCH MCHC RDW Plt Count Lymph % (Auto) Lymph # (Auto) Seg Neutrophils % Seg Neuts % (Manual) Lymphocytes % (Manual) Monocytes % (Manual) Nucleated RBC % Seg Neutrophils # Seg Neutrophils # Man Lymphocytes # (Manual) Monocytes # (Manual) Eosinophils # (Manual) INR D-Dimer ABG pH POC ABG pCO2 POC ABG pO2 ABG pO2 ABG HCO3 ABG O2 Saturation ABG Base Excess ABG Hemoglobin ABG Oxyhemoglobin ABG Sodium ABG Potassium ABG Chloride ABG Glucose Oxyhemoglobin Carboxyhemoglobin Sodium 135 L Potassium 3.4 L Chloride 93.0 L Carbon Dioxide 32 H BUN 46 H Creatinine 5.8 H Glucose 148 H POC Glucose Hemoglobin A1c Lactic Acid Calcium 7.9 L Phosphorus Magnesium Ferritin Total Bilirubin AST ALT Lactate Dehydrogenase C-Reactive Protein 16.80 H Albumin Triglycerides Arterial Blood Glucose Arterial Blood Ionized Calcium Urine Creatinine Coronavirus (PCR) Crossmatch 02/13/21 02/13/21 02/13/21 06:40 07:38 07:38 WBC RBC Hgb Hct MCV MCH MCHC RDW Plt Count Lymph % (Auto) Lymph # (Auto) Seg Neutrophils % Seg Neuts % (Manual) Lymphocytes % (Manual) Monocytes % (Manual) Nucleated RBC % Seg Neutrophils # Seg Neutrophils # Man Lymphocytes # (Manual) Monocytes # (Manual) Eosinophils # (Manual) INR D-Dimer 1722.16 H ABG pH POC ABG pCO2 POC ABG pO2 ABG pO2 ABG HCO3 ABG O2 Saturation ABG Base Excess ABG Hemoglobin ABG Oxyhemoglobin ABG Sodium ABG Potassium ABG Chloride ABG Glucose Oxyhemoglobin Carboxyhemoglobin Sodium Potassium Chloride Carbon Dioxide BUN Creatinine Glucose POC Glucose Hemoglobin A1c Lactic Acid Calcium Phosphorus Magnesium 1.60 L Ferritin 976.5 H Total Bilirubin AST ALT Lactate Dehydrogenase C-Reactive Protein Albumin Triglycerides Arterial Blood Glucose Arterial Blood Ionized Calcium Urine Creatinine Coronavirus (PCR) Crossmatch 02/13/21 02/13/21 02/13/21 12:24 16:57 23:32 WBC RBC Hgb Hct MCV MCH MCHC RDW Plt Count Lymph % (Auto) Lymph # (Auto) Seg Neutrophils % Seg Neuts % (Manual) Lymphocytes % (Manual) Monocytes % (Manual) Nucleated RBC % Seg Neutrophils # Seg Neutrophils # Man Lymphocytes # (Manual) Monocytes # (Manual) Eosinophils # (Manual) INR D-Dimer ABG pH POC ABG pCO2 POC ABG pO2 ABG pO2 ABG HCO3 ABG O2 Saturation ABG Base Excess ABG Hemoglobin ABG Oxyhemoglobin ABG Sodium ABG Potassium ABG Chloride ABG Glucose Oxyhemoglobin Carboxyhemoglobin Sodium Potassium Chloride Carbon Dioxide BUN Creatinine Glucose POC Glucose 141 H 156 H 161 H Hemoglobin A1c Lactic Acid Calcium Phosphorus Magnesium Ferritin Total Bilirubin AST ALT Lactate Dehydrogenase C-Reactive Protein Albumin Triglycerides Arterial Blood Glucose Arterial Blood Ionized Calcium Urine Creatinine Coronavirus (PCR) Crossmatch 02/14/21 02/14/21 02/14/21 04:00 05:41 11:00 WBC RBC 2.14 L Hgb 6.9 L Hct 20.7 L MCV 97 H MCH 33 H MCHC RDW Plt Count Lymph % (Auto) Lymph # (Auto) Seg Neutrophils % Seg Neuts % (Manual) Lymphocytes % (Manual) Monocytes % (Manual) Nucleated RBC % Seg Neutrophils # Seg Neutrophils # Man Lymphocytes # (Manual) Monocytes # (Manual) Eosinophils # (Manual) INR D-Dimer ABG pH POC ABG pCO2 POC ABG pO2 ABG pO2 ABG HCO3 ABG O2 Saturation ABG Base Excess ABG Hemoglobin ABG Oxyhemoglobin ABG Sodium ABG Potassium ABG Chloride ABG Glucose Oxyhemoglobin Carboxyhemoglobin Sodium Potassium Chloride Carbon Dioxide BUN Creatinine Glucose POC Glucose 143 H Hemoglobin A1c Lactic Acid Calcium Phosphorus Magnesium Ferritin Total Bilirubin AST ALT Lactate Dehydrogenase C-Reactive Protein Albumin Triglycerides Arterial Blood Glucose Arterial Blood Ionized Calcium Urine Creatinine Coronavirus (PCR) Crossmatch See Detail 02/14/21 02/14/21 02/14/21 11:51 18:08 23:41 WBC RBC Hgb Hct MCV MCH MCHC RDW Plt Count Lymph % (Auto) Lymph # (Auto) Seg Neutrophils % Seg Neuts % (Manual) Lymphocytes % (Manual) Monocytes % (Manual) Nucleated RBC % Seg Neutrophils # Seg Neutrophils # Man Lymphocytes # (Manual) Monocytes # (Manual) Eosinophils # (Manual) INR D-Dimer ABG pH POC ABG pCO2 POC ABG pO2 ABG pO2 ABG HCO3 ABG O2 Saturation ABG Base Excess ABG Hemoglobin ABG Oxyhemoglobin ABG Sodium ABG Potassium ABG Chloride ABG Glucose Oxyhemoglobin Carboxyhemoglobin Sodium Potassium Chloride Carbon Dioxide BUN Creatinine Glucose POC Glucose 113 H 123 H 120 H Hemoglobin A1c Lactic Acid Calcium Phosphorus Magnesium Ferritin Total Bilirubin AST ALT Lactate Dehydrogenase C-Reactive Protein Albumin Triglycerides Arterial Blood Glucose Arterial Blood Ionized Calcium Urine Creatinine Coronavirus (PCR) Crossmatch 02/14/21 02/15/21 02/15/21 Unknown 05:00 05:00 WBC RBC Hgb Hct MCV MCH MCHC RDW Plt Count Lymph % (Auto) Lymph # (Auto) Seg Neutrophils % Seg Neuts % (Manual) Lymphocytes % (Manual) Monocytes % (Manual) Nucleated RBC % Seg Neutrophils # Seg Neutrophils # Man Lymphocytes # (Manual) Monocytes # (Manual) Eosinophils # (Manual) INR D-Dimer ABG pH POC ABG pCO2 53.4 H POC ABG pO2 61.8 L ABG pO2 ABG HCO3 ABG O2 Saturation ABG Base Excess ABG Hemoglobin 7.7 L ABG Oxyhemoglobin 88.8 L ABG Sodium ABG Potassium ABG Chloride ABG Glucose 143 H Oxyhemoglobin Carboxyhemoglobin 1.6 H Sodium Potassium Chloride 96.9 L Carbon Dioxide 33 H 31 H BUN 40 H 38 H Creatinine 5.2 H 4.8 H Glucose 152 H 132 H POC Glucose Hemoglobin A1c Lactic Acid Calcium 7.9 L Phosphorus Magnesium Ferritin Total Bilirubin AST ALT Lactate Dehydrogenase C-Reactive Protein Albumin Triglycerides Arterial Blood Glucose 143 H Arterial Blood Ionized Calcium Urine Creatinine Coronavirus (PCR) Crossmatch 02/15/21 02/15/21 02/15/21 05:00 05:27 12:05 WBC RBC 2.30 L Hgb 7.1 L Hct 22.1 L MCV 96 H MCH MCHC RDW 15.7 H Plt Count Lymph % (Auto) 11.0 L Lymph # (Auto) 1.1 L Seg Neutrophils % 83.0 H Seg Neuts % (Manual) Lymphocytes % (Manual) Monocytes % (Manual) Nucleated RBC % Seg Neutrophils # 8.6 H Seg Neutrophils # Man Lymphocytes # (Manual) Monocytes # (Manual) Eosinophils # (Manual) INR D-Dimer ABG pH POC ABG pCO2 POC ABG pO2 ABG pO2 ABG HCO3 ABG O2 Saturation ABG Base Excess ABG Hemoglobin ABG Oxyhemoglobin ABG Sodium ABG Potassium ABG Chloride ABG Glucose Oxyhemoglobin Carboxyhemoglobin Sodium Potassium Chloride Carbon Dioxide BUN Creatinine Glucose POC Glucose 133 H 123 H Hemoglobin A1c Lactic Acid Calcium Phosphorus Magnesium Ferritin Total Bilirubin AST ALT Lactate Dehydrogenase C-Reactive Protein Albumin Triglycerides Arterial Blood Glucose Arterial Blood Ionized Calcium Urine Creatinine Coronavirus (PCR) Crossmatch 02/15/21 02/15/21 02/16/21 17:08 23:52 03:44 WBC RBC Hgb Hct MCV MCH MCHC RDW Plt Count Lymph % (Auto) Lymph # (Auto) Seg Neutrophils % Seg Neuts % (Manual) Lymphocytes % (Manual) Monocytes % (Manual) Nucleated RBC % Seg Neutrophils # Seg Neutrophils # Man Lymphocytes # (Manual) Monocytes # (Manual) Eosinophils # (Manual) INR D-Dimer ABG pH 7.307 L POC ABG pCO2 59.5 H POC ABG pO2 63.2 L ABG pO2 ABG HCO3 ABG O2 Saturation ABG Base Excess ABG Hemoglobin 9.3 L ABG Oxyhemoglobin ABG Sodium ABG Potassium ABG Chloride ABG Glucose 148 H Oxyhemoglobin Carboxyhemoglobin Sodium Potassium Chloride Carbon Dioxide BUN Creatinine Glucose POC Glucose 129 H 136 H Hemoglobin A1c Lactic Acid Calcium Phosphorus Magnesium Ferritin Total Bilirubin AST ALT Lactate Dehydrogenase C-Reactive Protein Albumin Triglycerides Arterial Blood Glucose 148 H Arterial Blood Ionized Calcium Urine Creatinine Coronavirus (PCR) Crossmatch 02/16/21 02/16/21 02/16/21 05:26 06:00 12:14 WBC RBC Hgb Hct MCV MCH MCHC RDW Plt Count Lymph % (Auto) Lymph # (Auto) Seg Neutrophils % Seg Neuts % (Manual) Lymphocytes % (Manual) Monocytes % (Manual) Nucleated RBC % Seg Neutrophils # Seg Neutrophils # Man Lymphocytes # (Manual) Monocytes # (Manual) Eosinophils # (Manual) INR D-Dimer ABG pH POC ABG pCO2 POC ABG pO2 ABG pO2 ABG HCO3 ABG O2 Saturation ABG Base Excess ABG Hemoglobin ABG Oxyhemoglobin ABG Sodium ABG Potassium ABG Chloride ABG Glucose Oxyhemoglobin Carboxyhemoglobin Sodium Potassium Chloride Carbon Dioxide BUN 52 H Creatinine 6.0 H Glucose 138 H POC Glucose 135 H 128 H Hemoglobin A1c Lactic Acid Calcium Phosphorus Magnesium Ferritin Total Bilirubin AST ALT Lactate Dehydrogenase C-Reactive Protein Albumin Triglycerides Arterial Blood Glucose Arterial Blood Ionized Calcium Urine Creatinine Coronavirus (PCR) Crossmatch 02/16/21 02/16/21 02/16/21 17:09 17:09 17:09 WBC RBC Hgb Hct MCV MCH MCHC RDW Plt Count Lymph % (Auto) Lymph # (Auto) Seg Neutrophils % Seg Neuts % (Manual) Lymphocytes % (Manual) Monocytes % (Manual) Nucleated RBC % Seg Neutrophils # Seg Neutrophils # Man Lymphocytes # (Manual) Monocytes # (Manual) Eosinophils # (Manual) INR D-Dimer 4256.08 H ABG pH POC ABG pCO2 POC ABG pO2 ABG pO2 ABG HCO3 ABG O2 Saturation ABG Base Excess ABG Hemoglobin ABG Oxyhemoglobin ABG Sodium ABG Potassium ABG Chloride ABG Glucose Oxyhemoglobin Carboxyhemoglobin Sodium Potassium Chloride Carbon Dioxide BUN Creatinine Glucose POC Glucose Hemoglobin A1c Lactic Acid Calcium Phosphorus Magnesium Ferritin 980.6 H Total Bilirubin AST ALT Lactate Dehydrogenase 441 H C-Reactive Protein 20.20 H Albumin Triglycerides Arterial Blood Glucose Arterial Blood Ionized Calcium Urine Creatinine Coronavirus (PCR) Crossmatch 02/16/21 02/16/21 02/16/21 17:25 23:16 Unknown WBC RBC 2.19 L Hgb 7.1 L Hct 21.3 L MCV 98 H MCH 33 H MCHC RDW 16.0 H Plt Count Lymph % (Auto) Lymph # (Auto) Seg Neutrophils % Seg Neuts % (Manual) 85.0 H Lymphocytes % (Manual) 6.0 L Monocytes % (Manual) Nucleated RBC % 4.0 H Seg Neutrophils # Seg Neutrophils # Man Lymphocytes # (Manual) 0.5 L Monocytes # (Manual) Eosinophils # (Manual) INR D-Dimer ABG pH POC ABG pCO2 POC ABG pO2 ABG pO2 ABG HCO3 ABG O2 Saturation ABG Base Excess ABG Hemoglobin ABG Oxyhemoglobin ABG Sodium ABG Potassium ABG Chloride ABG Glucose Oxyhemoglobin Carboxyhemoglobin Sodium Potassium Chloride Carbon Dioxide BUN Creatinine Glucose POC Glucose 146 H 150 H Hemoglobin A1c Lactic Acid Calcium Phosphorus Magnesium Ferritin Total Bilirubin AST ALT Lactate Dehydrogenase C-Reactive Protein Albumin Triglycerides Arterial Blood Glucose Arterial Blood Ionized Calcium Urine Creatinine Coronavirus (PCR) Crossmatch 02/17/21 02/17/21 02/17/21 04:00 04:14 04:14 WBC RBC Hgb Hct MCV MCH MCHC RDW Plt Count Lymph % (Auto) Lymph # (Auto) Seg Neutrophils % Seg Neuts % (Manual) Lymphocytes % (Manual) Monocytes % (Manual) Nucleated RBC % Seg Neutrophils # Seg Neutrophils # Man Lymphocytes # (Manual) Monocytes # (Manual) Eosinophils # (Manual) INR D-Dimer 3183.35 H ABG pH 7.293 L POC ABG pCO2 59.5 H POC ABG pO2 68.1 L ABG pO2 ABG HCO3 ABG O2 Saturation ABG Base Excess ABG Hemoglobin 7.7 L ABG Oxyhemoglobin ABG Sodium 133.4 L ABG Potassium ABG Chloride ABG Glucose 143 H Oxyhemoglobin Carboxyhemoglobin Sodium 136 L Potassium Chloride 97.3 L Carbon Dioxide BUN 49 H Creatinine 5.3 H Glucose 139 H POC Glucose Hemoglobin A1c Lactic Acid Calcium Phosphorus Magnesium Ferritin Total Bilirubin AST ALT Lactate Dehydrogenase C-Reactive Protein Albumin Triglycerides Arterial Blood Glucose 143 H Arterial Blood Ionized Calcium Urine Creatinine Coronavirus (PCR) Crossmatch 02/17/21 02/17/21 02/17/21 04:14 04:14 04:14 WBC RBC 2.14 L Hgb 6.9 L Hct 21.0 L MCV 98 H MCH MCHC RDW 15.8 H Plt Count Lymph % (Auto) Lymph # (Auto) Seg Neutrophils % Seg Neuts % (Manual) Lymphocytes % (Manual) Monocytes % (Manual) Nucleated RBC % Seg Neutrophils # Seg Neutrophils # Man Lymphocytes # (Manual) Monocytes # (Manual) Eosinophils # (Manual) INR D-Dimer ABG pH POC ABG pCO2 POC ABG pO2 ABG pO2 ABG HCO3 ABG O2 Saturation ABG Base Excess ABG Hemoglobin ABG Oxyhemoglobin ABG Sodium ABG Potassium ABG Chloride ABG Glucose Oxyhemoglobin Carboxyhemoglobin Sodium Potassium Chloride Carbon Dioxide BUN Creatinine Glucose POC Glucose Hemoglobin A1c Lactic Acid Calcium Phosphorus Magnesium Ferritin 894.0 H Total Bilirubin AST ALT Lactate Dehydrogenase 399 H C-Reactive Protein 22.10 H Albumin Triglycerides Arterial Blood Glucose Arterial Blood Ionized Calcium Urine Creatinine Coronavirus (PCR) Crossmatch 02/17/21 02/17/21 02/17/21 06:06 07:45 12:25 WBC RBC Hgb 7.6 L Hct 22.8 L MCV MCH MCHC RDW Plt Count Lymph % (Auto) Lymph # (Auto) Seg Neutrophils % Seg Neuts % (Manual) Lymphocytes % (Manual) Monocytes % (Manual) Nucleated RBC % Seg Neutrophils # Seg Neutrophils # Man Lymphocytes # (Manual) Monocytes # (Manual) Eosinophils # (Manual) INR D-Dimer ABG pH POC ABG pCO2 POC ABG pO2 ABG pO2 ABG HCO3 ABG O2 Saturation ABG Base Excess ABG Hemoglobin ABG Oxyhemoglobin ABG Sodium ABG Potassium ABG Chloride ABG Glucose Oxyhemoglobin Carboxyhemoglobin Sodium Potassium Chloride Carbon Dioxide BUN Creatinine Glucose POC Glucose 134 H Hemoglobin A1c Lactic Acid Calcium Phosphorus Magnesium Ferritin Total Bilirubin AST ALT Lactate Dehydrogenase C-Reactive Protein Albumin Triglycerides Arterial Blood Glucose Arterial Blood Ionized Calcium Urine Creatinine Coronavirus (PCR) Crossmatch See Detail 02/17/21 02/17/21 02/17/21 12:35 17:56 23:34 WBC RBC Hgb Hct MCV MCH MCHC RDW Plt Count Lymph % (Auto) Lymph # (Auto) Seg Neutrophils % Seg Neuts % (Manual) Lymphocytes % (Manual) Monocytes % (Manual) Nucleated RBC % Seg Neutrophils # Seg Neutrophils # Man Lymphocytes # (Manual) Monocytes # (Manual) Eosinophils # (Manual) INR D-Dimer ABG pH POC ABG pCO2 POC ABG pO2 ABG pO2 ABG HCO3 ABG O2 Saturation ABG Base Excess ABG Hemoglobin ABG Oxyhemoglobin ABG Sodium ABG Potassium ABG Chloride ABG Glucose Oxyhemoglobin Carboxyhemoglobin Sodium Potassium Chloride Carbon Dioxide BUN Creatinine Glucose POC Glucose 114 H 128 H 120 H Hemoglobin A1c Lactic Acid Calcium Phosphorus Magnesium Ferritin Total Bilirubin AST ALT Lactate Dehydrogenase C-Reactive Protein Albumin Triglycerides Arterial Blood Glucose Arterial Blood Ionized Calcium Urine Creatinine Coronavirus (PCR) Crossmatch 02/18/21 02/18/21 02/18/21 04:03 04:55 05:02 WBC RBC 2.40 L Hgb 7.5 L Hct 23.1 L MCV 96 H MCH MCHC RDW 16.8 H Plt Count Lymph % (Auto) Lymph # (Auto) Seg Neutrophils % Seg Neuts % (Manual) Lymphocytes % (Manual) Monocytes % (Manual) Nucleated RBC % Seg Neutrophils # Seg Neutrophils # Man Lymphocytes # (Manual) Monocytes # (Manual) Eosinophils # (Manual) INR D-Dimer ABG pH 7.219 L POC ABG pCO2 58.7 H POC ABG pO2 64.2 L ABG pO2 ABG HCO3 ABG O2 Saturation ABG Base Excess ABG Hemoglobin ABG Oxyhemoglobin ABG Sodium 130.5 L ABG Potassium ABG Chloride ABG Glucose 147 H Oxyhemoglobin Carboxyhemoglobin Sodium 134 L Potassium Chloride 97.9 L Carbon Dioxide BUN 64 H Creatinine 6.5 H Glucose 135 H POC Glucose Hemoglobin A1c Lactic Acid Calcium 8.0 L Phosphorus Magnesium Ferritin Total Bilirubin AST ALT Lactate Dehydrogenase C-Reactive Protein Albumin Triglycerides Arterial Blood Glucose 147 H Arterial Blood Ionized Calcium Urine Creatinine Coronavirus (PCR) Crossmatch 02/18/21 02/18/21 02/18/21 05:27 10:00 11:51 WBC RBC Hgb Hct MCV MCH MCHC RDW Plt Count Lymph % (Auto) Lymph # (Auto) Seg Neutrophils % Seg Neuts % (Manual) Lymphocytes % (Manual) Monocytes % (Manual) Nucleated RBC % Seg Neutrophils # Seg Neutrophils # Man Lymphocytes # (Manual) Monocytes # (Manual) Eosinophils # (Manual) INR D-Dimer ABG pH POC ABG pCO2 POC ABG pO2 ABG pO2 ABG HCO3 ABG O2 Saturation ABG Base Excess ABG Hemoglobin ABG Oxyhemoglobin ABG Sodium ABG Potassium ABG Chloride ABG Glucose Oxyhemoglobin Carboxyhemoglobin Sodium Potassium Chloride Carbon Dioxide BUN Creatinine Glucose POC Glucose 130 H 123 H Hemoglobin A1c Lactic Acid Calcium Phosphorus Magnesium Ferritin Total Bilirubin AST ALT Lactate Dehydrogenase C-Reactive Protein Albumin Triglycerides Arterial Blood Glucose Arterial Blood Ionized Calcium Urine Creatinine Coronavirus (PCR) Positive A Crossmatch 02/18/21 02/18/21 02/19/21 18:10 23:35 05:00 WBC RBC Hgb Hct MCV MCH MCHC RDW Plt Count Lymph % (Auto) Lymph # (Auto) Seg Neutrophils % Seg Neuts % (Manual) Lymphocytes % (Manual) Monocytes % (Manual) Nucleated RBC % Seg Neutrophils # Seg Neutrophils # Man Lymphocytes # (Manual) Monocytes # (Manual) Eosinophils # (Manual) INR D-Dimer ABG pH 7.232 L POC ABG pCO2 64.3 H POC ABG pO2 ABG pO2 ABG HCO3 ABG O2 Saturation ABG Base Excess ABG Hemoglobin 8.1 L ABG Oxyhemoglobin ABG Sodium 133.5 L ABG Potassium ABG Chloride ABG Glucose 148 H Oxyhemoglobin Carboxyhemoglobin 1.6 H Sodium Potassium Chloride Carbon Dioxide BUN Creatinine Glucose POC Glucose 123 H 137 H Hemoglobin A1c Lactic Acid Calcium Phosphorus Magnesium Ferritin Total Bilirubin AST ALT Lactate Dehydrogenase C-Reactive Protein Albumin Triglycerides Arterial Blood Glucose 148 H Arterial Blood Ionized Calcium Urine Creatinine Coronavirus (PCR) Crossmatch 02/19/21 02/19/21 02/19/21 05:12 05:45 05:45 WBC RBC Hgb Hct MCV MCH MCHC RDW Plt Count Lymph % (Auto) Lymph # (Auto) Seg Neutrophils % Seg Neuts % (Manual) Lymphocytes % (Manual) Monocytes % (Manual) Nucleated RBC % Seg Neutrophils # Seg Neutrophils # Man Lymphocytes # (Manual) Monocytes # (Manual) Eosinophils # (Manual) INR D-Dimer 4840.82 H ABG pH POC ABG pCO2 POC ABG pO2 ABG pO2 ABG HCO3 ABG O2 Saturation ABG Base Excess ABG Hemoglobin ABG Oxyhemoglobin ABG Sodium ABG Potassium ABG Chloride ABG Glucose Oxyhemoglobin Carboxyhemoglobin Sodium 135 L Potassium Chloride 97.8 L Carbon Dioxide BUN 58 H Creatinine 5.6 H Glucose 140 H POC Glucose 134 H Hemoglobin A1c Lactic Acid Calcium Phosphorus Magnesium Ferritin Total Bilirubin AST ALT Lactate Dehydrogenase 345 H C-Reactive Protein 15.20 H Albumin Triglycerides 195 H Arterial Blood Glucose Arterial Blood Ionized Calcium Urine Creatinine Coronavirus (PCR) Crossmatch 02/19/21 02/19/21 02/19/21 05:45 12:00 17:48 WBC RBC Hgb Hct MCV MCH MCHC RDW Plt Count Lymph % (Auto) Lymph # (Auto) Seg Neutrophils % Seg Neuts % (Manual) Lymphocytes % (Manual) Monocytes % (Manual) Nucleated RBC % Seg Neutrophils # Seg Neutrophils # Man Lymphocytes # (Manual) Monocytes # (Manual) Eosinophils # (Manual) INR D-Dimer ABG pH POC ABG pCO2 POC ABG pO2 ABG pO2 ABG HCO3 ABG O2 Saturation ABG Base Excess ABG Hemoglobin ABG Oxyhemoglobin ABG Sodium ABG Potassium ABG Chloride ABG Glucose Oxyhemoglobin Carboxyhemoglobin Sodium Potassium Chloride Carbon Dioxide BUN Creatinine Glucose POC Glucose 122 H 119 H Hemoglobin A1c Lactic Acid Calcium Phosphorus Magnesium Ferritin 951.8 H Total Bilirubin AST ALT Lactate Dehydrogenase C-Reactive Protein Albumin Triglycerides Arterial Blood Glucose Arterial Blood Ionized Calcium Urine Creatinine Coronavirus (PCR) Crossmatch 02/20/21 02/20/21 02/20/21 03:20 04:00 11:48 WBC RBC Hgb Hct MCV MCH MCHC RDW Plt Count Lymph % (Auto) Lymph # (Auto) Seg Neutrophils % Seg Neuts % (Manual) Lymphocytes % (Manual) Monocytes % (Manual) Nucleated RBC % Seg Neutrophils # Seg Neutrophils # Man Lymphocytes # (Manual) Monocytes # (Manual) Eosinophils # (Manual) INR D-Dimer ABG pH 7.276 L POC ABG pCO2 57.3 H POC ABG pO2 71.0 L ABG pO2 ABG HCO3 ABG O2 Saturation ABG Base Excess ABG Hemoglobin 8.2 L ABG Oxyhemoglobin 91.9 L ABG Sodium 128.1 L ABG Potassium 4.8 H ABG Chloride ABG Glucose Oxyhemoglobin Carboxyhemoglobin 1.6 H Sodium 136 L Potassium Chloride Carbon Dioxide BUN 69 H Creatinine 6.4 H Glucose POC Glucose 131 H Hemoglobin A1c Lactic Acid Calcium 8.1 L Phosphorus Magnesium Ferritin Total Bilirubin AST ALT Lactate Dehydrogenase C-Reactive Protein Albumin Triglycerides Arterial Blood Glucose Arterial Blood Ionized Calcium 4.5 L Urine Creatinine Coronavirus (PCR) Crossmatch 02/20/21 02/20/21 02/21/21 18:05 23:28 02:53 WBC RBC Hgb Hct MCV MCH MCHC RDW Plt Count Lymph % (Auto) Lymph # (Auto) Seg Neutrophils % Seg Neuts % (Manual) Lymphocytes % (Manual) Monocytes % (Manual) Nucleated RBC % Seg Neutrophils # Seg Neutrophils # Man Lymphocytes # (Manual) Monocytes # (Manual) Eosinophils # (Manual) INR D-Dimer ABG pH 7.288 L POC ABG pCO2 52.7 H POC ABG pO2 81.5 L ABG pO2 ABG HCO3 ABG O2 Saturation ABG Base Excess ABG Hemoglobin 8.5 L ABG Oxyhemoglobin 93.6 L ABG Sodium 132.5 L ABG Potassium 4.6 H ABG Chloride ABG Glucose 106 H Oxyhemoglobin Carboxyhemoglobin 1.6 H Sodium Potassium Chloride Carbon Dioxide BUN Creatinine Glucose POC Glucose 114 H 118 H Hemoglobin A1c Lactic Acid Calcium Phosphorus Magnesium Ferritin Total Bilirubin AST ALT Lactate Dehydrogenase C-Reactive Protein Albumin Triglycerides Arterial Blood Glucose 106 H Arterial Blood Ionized Calcium 4.4 L Urine Creatinine Coronavirus (PCR) Crossmatch 02/21/21 02/21/21 02/21/21 05:29 11:42 16:35 WBC RBC Hgb Hct MCV MCH MCHC RDW Plt Count Lymph % (Auto) Lymph # (Auto) Seg Neutrophils % Seg Neuts % (Manual) Lymphocytes % (Manual) Monocytes % (Manual) Nucleated RBC % Seg Neutrophils # Seg Neutrophils # Man Lymphocytes # (Manual) Monocytes # (Manual) Eosinophils # (Manual) INR D-Dimer ABG pH POC ABG pCO2 POC ABG pO2 ABG pO2 ABG HCO3 ABG O2 Saturation ABG Base Excess ABG Hemoglobin ABG Oxyhemoglobin ABG Sodium ABG Potassium ABG Chloride ABG Glucose Oxyhemoglobin Carboxyhemoglobin Sodium Potassium 5.6 H Chloride 97.6 L Carbon Dioxide BUN 68 H Creatinine 5.7 H Glucose 160 H POC Glucose 111 H 131 H Hemoglobin A1c Lactic Acid Calcium 8.0 L Phosphorus 7.90 H Magnesium 2.60 H Ferritin Total Bilirubin AST ALT Lactate Dehydrogenase C-Reactive Protein Albumin Triglycerides Arterial Blood Glucose Arterial Blood Ionized Calcium Urine Creatinine Coronavirus (PCR) Crossmatch 02/21/21 02/22/21 02/22/21 17:17 00:04 04:22 WBC RBC Hgb Hct MCV MCH MCHC RDW Plt Count Lymph % (Auto) Lymph # (Auto) Seg Neutrophils % Seg Neuts % (Manual) Lymphocytes % (Manual) Monocytes % (Manual) Nucleated RBC % Seg Neutrophils # Seg Neutrophils # Man Lymphocytes # (Manual) Monocytes # (Manual) Eosinophils # (Manual) INR D-Dimer ABG pH 7.250 L POC ABG pCO2 60.1 H POC ABG pO2 57.6 L ABG pO2 ABG HCO3 ABG O2 Saturation ABG Base Excess ABG Hemoglobin 8.8 L ABG Oxyhemoglobin 87.0 L ABG Sodium 133.4 L ABG Potassium 5.1 H ABG Chloride ABG Glucose 124 H Oxyhemoglobin Carboxyhemoglobin Sodium Potassium Chloride Carbon Dioxide BUN Creatinine Glucose POC Glucose 135 H 121 H Hemoglobin A1c Lactic Acid Calcium Phosphorus Magnesium Ferritin Total Bilirubin AST ALT Lactate Dehydrogenase C-Reactive Protein Albumin Triglycerides Arterial Blood Glucose 124 H Arterial Blood Ionized Calcium Urine Creatinine Coronavirus (PCR) Crossmatch 02/22/21 02/22/21 02/22/21 05:33 09:41 09:41 WBC 13.2 H RBC 2.35 L Hgb 7.5 L Hct 22.7 L MCV 96 H MCH MCHC RDW 17.0 H Plt Count Lymph % (Auto) Lymph # (Auto) Seg Neutrophils % Seg Neuts % (Manual) 93.0 H Lymphocytes % (Manual) 4.0 L Monocytes % (Manual) Nucleated RBC % 1.0 H Seg Neutrophils # Seg Neutrophils # Man 12.3 H Lymphocytes # (Manual) 0.5 L Monocytes # (Manual) Eosinophils # (Manual) INR D-Dimer ABG pH POC ABG pCO2 POC ABG pO2 ABG pO2 ABG HCO3 ABG O2 Saturation ABG Base Excess ABG Hemoglobin ABG Oxyhemoglobin ABG Sodium ABG Potassium ABG Chloride ABG Glucose Oxyhemoglobin Carboxyhemoglobin Sodium Potassium 5.4 H Chloride Carbon Dioxide BUN 61 H Creatinine 5.5 H Glucose 117 H POC Glucose 114 H Hemoglobin A1c Lactic Acid Calcium 8.3 L Phosphorus Magnesium Ferritin Total Bilirubin AST ALT Lactate Dehydrogenase C-Reactive Protein Albumin Triglycerides Arterial Blood Glucose Arterial Blood Ionized Calcium Urine Creatinine Coronavirus (PCR) Crossmatch 02/22/21 02/22/21 02/23/21 12:08 17:06 04:00 WBC RBC Hgb Hct MCV MCH MCHC RDW Plt Count Lymph % (Auto) Lymph # (Auto) Seg Neutrophils % Seg Neuts % (Manual) Lymphocytes % (Manual) Monocytes % (Manual) Nucleated RBC % Seg Neutrophils # Seg Neutrophils # Man Lymphocytes # (Manual) Monocytes # (Manual) Eosinophils # (Manual) INR D-Dimer ABG pH 7.246 L POC ABG pCO2 POC ABG pO2 ABG pO2 119.4 H ABG HCO3 26.6 H ABG O2 Saturation ABG Base Excess ABG Hemoglobin 8.8 L ABG Oxyhemoglobin ABG Sodium ABG Potassium ABG Chloride ABG Glucose Oxyhemoglobin Carboxyhemoglobin Sodium Potassium Chloride Carbon Dioxide BUN Creatinine Glucose POC Glucose 133 H 114 H Hemoglobin A1c Lactic Acid Calcium Phosphorus Magnesium Ferritin Total Bilirubin AST ALT Lactate Dehydrogenase C-Reactive Protein Albumin Triglycerides Arterial Blood Glucose Arterial Blood Ionized Calcium Urine Creatinine Coronavirus (PCR) Crossmatch 02/23/21 02/23/21 02/24/21 06:20 11:42 03:43 WBC RBC Hgb Hct MCV MCH MCHC RDW Plt Count Lymph % (Auto) Lymph # (Auto) Seg Neutrophils % Seg Neuts % (Manual) Lymphocytes % (Manual) Monocytes % (Manual) Nucleated RBC % Seg Neutrophils # Seg Neutrophils # Man Lymphocytes # (Manual) Monocytes # (Manual) Eosinophils # (Manual) INR D-Dimer ABG pH 7.287 L POC ABG pCO2 54.7 H POC ABG pO2 ABG pO2 ABG HCO3 ABG O2 Saturation ABG Base Excess ABG Hemoglobin 8.5 L ABG Oxyhemoglobin ABG Sodium 135.6 L ABG Potassium ABG Chloride ABG Glucose 117 H Oxyhemoglobin Carboxyhemoglobin Sodium Potassium Chloride 97.6 L Carbon Dioxide BUN 79 H Creatinine 6.2 H Glucose POC Glucose 108 H Hemoglobin A1c Lactic Acid Calcium 8.3 L Phosphorus Magnesium Ferritin Total Bilirubin AST ALT Lactate Dehydrogenase C-Reactive Protein Albumin Triglycerides Arterial Blood Glucose 117 H Arterial Blood Ionized Calcium Urine Creatinine Coronavirus (PCR) Crossmatch 02/24/21 02/24/21 02/24/21 04:25 04:25 04:25 WBC 11.5 H RBC 2.47 L Hgb 7.7 L Hct 23.5 L MCV 95 H MCH MCHC RDW 16.7 H Plt Count Lymph % (Auto) Lymph # (Auto) Seg Neutrophils % Seg Neuts % (Manual) 82.0 H Lymphocytes % (Manual) 3.0 L Monocytes % (Manual) 11.0 H Nucleated RBC % Seg Neutrophils # Seg Neutrophils # Man 9.4 H Lymphocytes # (Manual) 0.3 L Monocytes # (Manual) 1.3 H Eosinophils # (Manual) INR D-Dimer 4695.21 H ABG pH POC ABG pCO2 POC ABG pO2 ABG pO2 ABG HCO3 ABG O2 Saturation ABG Base Excess ABG Hemoglobin ABG Oxyhemoglobin ABG Sodium ABG Potassium ABG Chloride ABG Glucose Oxyhemoglobin Carboxyhemoglobin Sodium Potassium Chloride Carbon Dioxide BUN 68 H Creatinine 4.9 H Glucose 113 H POC Glucose Hemoglobin A1c Lactic Acid Calcium Phosphorus Magnesium Ferritin Total Bilirubin AST ALT Lactate Dehydrogenase C-Reactive Protein 7.20 H Albumin Triglycerides Arterial Blood Glucose Arterial Blood Ionized Calcium Urine Creatinine Coronavirus (PCR) Crossmatch 02/24/21 02/24/21 02/24/21 04:25 05:01 11:12 WBC RBC Hgb Hct MCV MCH MCHC RDW Plt Count Lymph % (Auto) Lymph # (Auto) Seg Neutrophils % Seg Neuts % (Manual) Lymphocytes % (Manual) Monocytes % (Manual) Nucleated RBC % Seg Neutrophils # Seg Neutrophils # Man Lymphocytes # (Manual) Monocytes # (Manual) Eosinophils # (Manual) INR D-Dimer ABG pH POC ABG pCO2 POC ABG pO2 ABG pO2 ABG HCO3 ABG O2 Saturation ABG Base Excess ABG Hemoglobin ABG Oxyhemoglobin ABG Sodium ABG Potassium ABG Chloride ABG Glucose Oxyhemoglobin Carboxyhemoglobin Sodium Potassium Chloride Carbon Dioxide BUN Creatinine Glucose POC Glucose 116 H 112 H Hemoglobin A1c Lactic Acid Calcium Phosphorus Magnesium Ferritin 1116.0 H Total Bilirubin AST ALT Lactate Dehydrogenase C-Reactive Protein Albumin Triglycerides Arterial Blood Glucose Arterial Blood Ionized Calcium Urine Creatinine Coronavirus (PCR) Crossmatch 02/24/21 02/25/21 02/25/21 18:11 03:42 05:58 WBC RBC Hgb Hct MCV MCH MCHC RDW Plt Count Lymph % (Auto) Lymph # (Auto) Seg Neutrophils % Seg Neuts % (Manual) Lymphocytes % (Manual) Monocytes % (Manual) Nucleated RBC % Seg Neutrophils # Seg Neutrophils # Man Lymphocytes # (Manual) Monocytes # (Manual) Eosinophils # (Manual) INR D-Dimer ABG pH 7.287 L POC ABG pCO2 58.2 H POC ABG pO2 ABG pO2 ABG HCO3 ABG O2 Saturation ABG Base Excess ABG Hemoglobin 8.4 L ABG Oxyhemoglobin 93.7 L ABG Sodium ABG Potassium ABG Chloride ABG Glucose 104 H Oxyhemoglobin Carboxyhemoglobin Sodium Potassium Chloride Carbon Dioxide BUN Creatinine Glucose POC Glucose 109 H 109 H Hemoglobin A1c Lactic Acid Calcium Phosphorus Magnesium Ferritin Total Bilirubin AST ALT Lactate Dehydrogenase C-Reactive Protein Albumin Triglycerides Arterial Blood Glucose 104 H Arterial Blood Ionized Calcium 4.5 L Urine Creatinine Coronavirus (PCR) Crossmatch 02/25/21 02/25/21 02/25/21 09:03 13:47 16:50 WBC RBC Hgb Hct MCV MCH MCHC RDW Plt Count Lymph % (Auto) Lymph # (Auto) Seg Neutrophils % Seg Neuts % (Manual) Lymphocytes % (Manual) Monocytes % (Manual) Nucleated RBC % Seg Neutrophils # Seg Neutrophils # Man Lymphocytes # (Manual) Monocytes # (Manual) Eosinophils # (Manual) INR D-Dimer 6536.84 H ABG pH POC ABG pCO2 POC ABG pO2 ABG pO2 ABG HCO3 ABG O2 Saturation ABG Base Excess ABG Hemoglobin ABG Oxyhemoglobin ABG Sodium ABG Potassium ABG Chloride ABG Glucose Oxyhemoglobin Carboxyhemoglobin Sodium Potassium Chloride Carbon Dioxide BUN Creatinine Glucose POC Glucose 144 H 114 H Hemoglobin A1c Lactic Acid Calcium Phosphorus Magnesium Ferritin Total Bilirubin AST ALT Lactate Dehydrogenase C-Reactive Protein Albumin Triglycerides Arterial Blood Glucose Arterial Blood Ionized Calcium Urine Creatinine Coronavirus (PCR) Crossmatch 02/25/21 02/26/21 02/26/21 23:53 03:35 05:36 WBC RBC Hgb Hct MCV MCH MCHC RDW Plt Count Lymph % (Auto) Lymph # (Auto) Seg Neutrophils % Seg Neuts % (Manual) Lymphocytes % (Manual) Monocytes % (Manual) Nucleated RBC % Seg Neutrophils # Seg Neutrophils # Man Lymphocytes # (Manual) Monocytes # (Manual) Eosinophils # (Manual) INR D-Dimer ABG pH 7.179 L POC ABG pCO2 76.6 H POC ABG pO2 ABG pO2 ABG HCO3 ABG O2 Saturation ABG Base Excess ABG Hemoglobin 9.0 L ABG Oxyhemoglobin ABG Sodium 134.8 L ABG Potassium ABG Chloride ABG Glucose 118 H Oxyhemoglobin Carboxyhemoglobin Sodium Potassium Chloride Carbon Dioxide BUN Creatinine Glucose POC Glucose 110 H 113 H Hemoglobin A1c Lactic Acid Calcium Phosphorus Magnesium Ferritin Total Bilirubin AST ALT Lactate Dehydrogenase C-Reactive Protein Albumin Triglycerides Arterial Blood Glucose 118 H Arterial Blood Ionized Calcium Urine Creatinine Coronavirus (PCR) Crossmatch 02/26/21 02/26/21 02/26/21 05:48 05:48 05:48 WBC 11.4 H RBC 2.40 L Hgb 7.5 L Hct 23.2 L MCV 97 H MCH MCHC RDW 17.4 H Plt Count Lymph % (Auto) Lymph # (Auto) Seg Neutrophils % Seg Neuts % (Manual) Lymphocytes % (Manual) Monocytes % (Manual) Nucleated RBC % Seg Neutrophils # Seg Neutrophils # Man Lymphocytes # (Manual) Monocytes # (Manual) Eosinophils # (Manual) INR D-Dimer ABG pH POC ABG pCO2 POC ABG pO2 ABG pO2 ABG HCO3 ABG O2 Saturation ABG Base Excess ABG Hemoglobin ABG Oxyhemoglobin ABG Sodium ABG Potassium ABG Chloride ABG Glucose Oxyhemoglobin Carboxyhemoglobin Sodium Potassium Chloride Carbon Dioxide BUN 72 H Creatinine 4.5 H Glucose 112 H POC Glucose Hemoglobin A1c Lactic Acid Calcium 7.7 L Phosphorus Magnesium Ferritin 867.8 H Total Bilirubin AST ALT Lactate Dehydrogenase C-Reactive Protein 5.90 H Albumin Triglycerides Arterial Blood Glucose Arterial Blood Ionized Calcium Urine Creatinine Coronavirus (PCR) Crossmatch 02/26/21 02/26/21 02/26/21 08:00 11:29 18:13 WBC RBC Hgb Hct MCV MCH MCHC RDW Plt Count Lymph % (Auto) Lymph # (Auto) Seg Neutrophils % Seg Neuts % (Manual) Lymphocytes % (Manual) Monocytes % (Manual) Nucleated RBC % Seg Neutrophils # Seg Neutrophils # Man Lymphocytes # (Manual) Monocytes # (Manual) Eosinophils # (Manual) INR D-Dimer ABG pH 7.228 L POC ABG pCO2 70.2 H POC ABG pO2 79.7 L ABG pO2 ABG HCO3 ABG O2 Saturation ABG Base Excess ABG Hemoglobin 7.6 L ABG Oxyhemoglobin 93.2 L ABG Sodium 135.7 L ABG Potassium ABG Chloride ABG Glucose 119 H Oxyhemoglobin Carboxyhemoglobin Sodium Potassium Chloride Carbon Dioxide BUN Creatinine Glucose POC Glucose 110 H 115 H Hemoglobin A1c Lactic Acid Calcium Phosphorus Magnesium Ferritin Total Bilirubin AST ALT Lactate Dehydrogenase C-Reactive Protein Albumin Triglycerides Arterial Blood Glucose 119 H Arterial Blood Ionized Calcium Urine Creatinine Coronavirus (PCR) Crossmatch 02/26/21 02/27/21 02/27/21 23:18 04:00 05:04 WBC RBC Hgb Hct MCV MCH MCHC RDW Plt Count Lymph % (Auto) Lymph # (Auto) Seg Neutrophils % Seg Neuts % (Manual) Lymphocytes % (Manual) Monocytes % (Manual) Nucleated RBC % Seg Neutrophils # Seg Neutrophils # Man Lymphocytes # (Manual) Monocytes # (Manual) Eosinophils # (Manual) INR D-Dimer ABG pH 7.316 L POC ABG pCO2 49.0 H POC ABG pO2 111.2 H ABG pO2 ABG HCO3 ABG O2 Saturation ABG Base Excess ABG Hemoglobin 7.7 L ABG Oxyhemoglobin ABG Sodium 135.0 L ABG Potassium ABG Chloride ABG Glucose 113 H Oxyhemoglobin Carboxyhemoglobin Sodium Potassium Chloride Carbon Dioxide BUN Creatinine Glucose POC Glucose 114 H 112 H Hemoglobin A1c Lactic Acid Calcium Phosphorus Magnesium Ferritin Total Bilirubin AST ALT Lactate Dehydrogenase C-Reactive Protein Albumin Triglycerides Arterial Blood Glucose 113 H Arterial Blood Ionized Calcium 4.4 L Urine Creatinine Coronavirus (PCR) Crossmatch 02/27/21 02/27/21 02/27/21 12:13 18:30 23:40 WBC RBC Hgb Hct MCV MCH MCHC RDW Plt Count Lymph % (Auto) Lymph # (Auto) Seg Neutrophils % Seg Neuts % (Manual) Lymphocytes % (Manual) Monocytes % (Manual) Nucleated RBC % Seg Neutrophils # Seg Neutrophils # Man Lymphocytes # (Manual) Monocytes # (Manual) Eosinophils # (Manual) INR D-Dimer ABG pH POC ABG pCO2 POC ABG pO2 ABG pO2 ABG HCO3 ABG O2 Saturation ABG Base Excess ABG Hemoglobin ABG Oxyhemoglobin ABG Sodium ABG Potassium ABG Chloride ABG Glucose Oxyhemoglobin Carboxyhemoglobin Sodium Potassium Chloride Carbon Dioxide BUN Creatinine Glucose POC Glucose 127 H 129 H 115 H Hemoglobin A1c Lactic Acid Calcium Phosphorus Magnesium Ferritin Total Bilirubin AST ALT Lactate Dehydrogenase C-Reactive Protein Albumin Triglycerides Arterial Blood Glucose Arterial Blood Ionized Calcium Urine Creatinine Coronavirus (PCR) Crossmatch 02/28/21 02/28/21 02/28/21 04:07 05:29 10:22 WBC RBC Hgb Hct MCV MCH MCHC RDW Plt Count Lymph % (Auto) Lymph # (Auto) Seg Neutrophils % Seg Neuts % (Manual) Lymphocytes % (Manual) Monocytes % (Manual) Nucleated RBC % Seg Neutrophils # Seg Neutrophils # Man Lymphocytes # (Manual) Monocytes # (Manual) Eosinophils # (Manual) INR D-Dimer ABG pH 7.260 L POC ABG pCO2 67.6 H POC ABG pO2 ABG pO2 ABG HCO3 ABG O2 Saturation ABG Base Excess ABG Hemoglobin 7.9 L ABG Oxyhemoglobin ABG Sodium ABG Potassium ABG Chloride ABG Glucose 129 H Oxyhemoglobin Carboxyhemoglobin Sodium Potassium Chloride Carbon Dioxide BUN 68 H Creatinine 3.5 H Glucose 117 H POC Glucose 117 H Hemoglobin A1c Lactic Acid Calcium 7.9 L Phosphorus Magnesium Ferritin Total Bilirubin AST ALT Lactate Dehydrogenase C-Reactive Protein Albumin Triglycerides Arterial Blood Glucose 129 H Arterial Blood Ionized Calcium Urine Creatinine Coronavirus (PCR) Crossmatch 02/28/21 02/28/21 03/01/21 11:51 17:26 00:31 WBC RBC Hgb Hct MCV MCH MCHC RDW Plt Count Lymph % (Auto) Lymph # (Auto) Seg Neutrophils % Seg Neuts % (Manual) Lymphocytes % (Manual) Monocytes % (Manual) Nucleated RBC % Seg Neutrophils # Seg Neutrophils # Man Lymphocytes # (Manual) Monocytes # (Manual) Eosinophils # (Manual) INR D-Dimer ABG pH POC ABG pCO2 POC ABG pO2 ABG pO2 ABG HCO3 ABG O2 Saturation ABG Base Excess ABG Hemoglobin ABG Oxyhemoglobin ABG Sodium ABG Potassium ABG Chloride ABG Glucose Oxyhemoglobin Carboxyhemoglobin Sodium Potassium Chloride Carbon Dioxide BUN Creatinine Glucose POC Glucose 123 H 121 H 112 H Hemoglobin A1c Lactic Acid Calcium Phosphorus Magnesium Ferritin Total Bilirubin AST ALT Lactate Dehydrogenase C-Reactive Protein Albumin Triglycerides Arterial Blood Glucose Arterial Blood Ionized Calcium Urine Creatinine Coronavirus (PCR) Crossmatch 03/01/21 03/01/21 03/01/21 03:29 06:00 06:17 WBC RBC Hgb Hct MCV MCH MCHC RDW Plt Count Lymph % (Auto) Lymph # (Auto) Seg Neutrophils % Seg Neuts % (Manual) Lymphocytes % (Manual) Monocytes % (Manual) Nucleated RBC % Seg Neutrophils # Seg Neutrophils # Man Lymphocytes # (Manual) Monocytes # (Manual) Eosinophils # (Manual) INR D-Dimer ABG pH POC ABG pCO2 52.3 H POC ABG pO2 115.1 H ABG pO2 ABG HCO3 ABG O2 Saturation ABG Base Excess ABG Hemoglobin 7.5 L ABG Oxyhemoglobin ABG Sodium 135.6 L ABG Potassium ABG Chloride ABG Glucose 117 H Oxyhemoglobin Carboxyhemoglobin 1.6 H Sodium Potassium Chloride Carbon Dioxide BUN 78 H Creatinine 3.6 H Glucose 110 H POC Glucose 121 H Hemoglobin A1c Lactic Acid Calcium 8.0 L Phosphorus Magnesium Ferritin Total Bilirubin AST ALT Lactate Dehydrogenase C-Reactive Protein Albumin Triglycerides Arterial Blood Glucose 117 H Arterial Blood Ionized Calcium Urine Creatinine Coronavirus (PCR) Crossmatch 03/01/21 03/02/21 03/02/21 23:22 04:43 05:46 WBC RBC Hgb Hct MCV MCH MCHC RDW Plt Count Lymph % (Auto) Lymph # (Auto) Seg Neutrophils % Seg Neuts % (Manual) Lymphocytes % (Manual) Monocytes % (Manual) Nucleated RBC % Seg Neutrophils # Seg Neutrophils # Man Lymphocytes # (Manual) Monocytes # (Manual) Eosinophils # (Manual) INR D-Dimer ABG pH POC ABG pCO2 POC ABG pO2 ABG pO2 ABG HCO3 ABG O2 Saturation ABG Base Excess ABG Hemoglobin ABG Oxyhemoglobin ABG Sodium ABG Potassium ABG Chloride ABG Glucose Oxyhemoglobin Carboxyhemoglobin Sodium Potassium Chloride Carbon Dioxide BUN 89 H Creatinine 3.6 H Glucose 116 H POC Glucose 116 H 126 H Hemoglobin A1c Lactic Acid Calcium 7.7 L Phosphorus Magnesium Ferritin Total Bilirubin AST ALT Lactate Dehydrogenase C-Reactive Protein Albumin Triglycerides Arterial Blood Glucose Arterial Blood Ionized Calcium Urine Creatinine Coronavirus (PCR) Crossmatch 03/02/21 03/02/21 03/02/21 08:35 11:35 15:17 WBC RBC 2.15 L Hgb 7.1 L Hct 20.4 L MCV 95 H MCH 33 H MCHC 35 H RDW 17.6 H Plt Count Lymph % (Auto) Lymph # (Auto) Seg Neutrophils % Seg Neuts % (Manual) Lymphocytes % (Manual) Monocytes % (Manual) Nucleated RBC % Seg Neutrophils # Seg Neutrophils # Man Lymphocytes # (Manual) Monocytes # (Manual) Eosinophils # (Manual) INR D-Dimer ABG pH POC ABG pCO2 POC ABG pO2 ABG pO2 ABG HCO3 ABG O2 Saturation ABG Base Excess ABG Hemoglobin ABG Oxyhemoglobin ABG Sodium ABG Potassium ABG Chloride ABG Glucose Oxyhemoglobin Carboxyhemoglobin Sodium Potassium Chloride Carbon Dioxide BUN Creatinine Glucose POC Glucose 117 H Hemoglobin A1c Lactic Acid Calcium Phosphorus Magnesium Ferritin Total Bilirubin AST ALT Lactate Dehydrogenase C-Reactive Protein Albumin Triglycerides Arterial Blood Glucose Arterial Blood Ionized Calcium Urine Creatinine Coronavirus (PCR) Positive A Crossmatch 03/02/21 03/02/21 03/02/21 17:50 23:26 Unknown WBC RBC Hgb Hct MCV MCH MCHC RDW Plt Count Lymph % (Auto) Lymph # (Auto) Seg Neutrophils % Seg Neuts % (Manual) Lymphocytes % (Manual) Monocytes % (Manual) Nucleated RBC % Seg Neutrophils # Seg Neutrophils # Man Lymphocytes # (Manual) Monocytes # (Manual) Eosinophils # (Manual) INR D-Dimer ABG pH 7.282 L POC ABG pCO2 POC ABG pO2 ABG pO2 150.8 H ABG HCO3 30.1 H ABG O2 Saturation ABG Base Excess ABG Hemoglobin 6.9 L ABG Oxyhemoglobin ABG Sodium ABG Potassium ABG Chloride ABG Glucose Oxyhemoglobin Carboxyhemoglobin Sodium Potassium Chloride Carbon Dioxide BUN Creatinine Glucose POC Glucose 131 H 143 H Hemoglobin A1c Lactic Acid Calcium Phosphorus Magnesium Ferritin Total Bilirubin AST ALT Lactate Dehydrogenase C-Reactive Protein Albumin Triglycerides Arterial Blood Glucose Arterial Blood Ionized Calcium Urine Creatinine Coronavirus (PCR) Crossmatch 03/03/21 03/03/21 03/03/21 03:50 05:46 17:16 WBC RBC Hgb Hct MCV MCH MCHC RDW Plt Count Lymph % (Auto) Lymph # (Auto) Seg Neutrophils % Seg Neuts % (Manual) Lymphocytes % (Manual) Monocytes % (Manual) Nucleated RBC % Seg Neutrophils # Seg Neutrophils # Man Lymphocytes # (Manual) Monocytes # (Manual) Eosinophils # (Manual) INR D-Dimer ABG pH 7.276 L POC ABG pCO2 POC ABG pO2 ABG pO2 ABG HCO3 31.7 H ABG O2 Saturation ABG Base Excess 4.3 H ABG Hemoglobin 6.7 L ABG Oxyhemoglobin ABG Sodium ABG Potassium ABG Chloride ABG Glucose Oxyhemoglobin 93.5 L Carboxyhemoglobin Sodium Potassium Chloride Carbon Dioxide BUN Creatinine Glucose POC Glucose 107 H 109 H Hemoglobin A1c Lactic Acid Calcium Phosphorus Magnesium Ferritin Total Bilirubin AST ALT Lactate Dehydrogenase C-Reactive Protein Albumin Triglycerides Arterial Blood Glucose Arterial Blood Ionized Calcium Urine Creatinine Coronavirus (PCR) Crossmatch 03/03/21 03/03/21 03/03/21 23:34 Unknown Unknown WBC 12.4 H RBC 2.26 L Hgb 6.8 L Hct 21.8 L MCV 96 H MCH MCHC 31 L RDW 18.5 H Plt Count Lymph % (Auto) Lymph # (Auto) Seg Neutrophils % Seg Neuts % (Manual) Lymphocytes % (Manual) Monocytes % (Manual) Nucleated RBC % Seg Neutrophils # Seg Neutrophils # Man Lymphocytes # (Manual) Monocytes # (Manual) Eosinophils # (Manual) INR D-Dimer ABG pH POC ABG pCO2 POC ABG pO2 ABG pO2 ABG HCO3 ABG O2 Saturation ABG Base Excess ABG Hemoglobin ABG Oxyhemoglobin ABG Sodium ABG Potassium ABG Chloride ABG Glucose Oxyhemoglobin Carboxyhemoglobin Sodium Potassium Chloride Carbon Dioxide BUN 70 H Creatinine 2.6 H Glucose 118 H POC Glucose 135 H Hemoglobin A1c Lactic Acid Calcium Phosphorus Magnesium Ferritin Total Bilirubin AST ALT Lactate Dehydrogenase C-Reactive Protein Albumin Triglycerides Arterial Blood Glucose Arterial Blood Ionized Calcium Urine Creatinine Coronavirus (PCR) Crossmatch 03/03/21 03/03/21 03/04/21 Unknown Unknown 03:28 WBC RBC Hgb Hct MCV MCH MCHC RDW Plt Count Lymph % (Auto) Lymph # (Auto) Seg Neutrophils % Seg Neuts % (Manual) Lymphocytes % (Manual) Monocytes % (Manual) Nucleated RBC % Seg Neutrophils # Seg Neutrophils # Man Lymphocytes # (Manual) Monocytes # (Manual) Eosinophils # (Manual) INR 1.15 H D-Dimer ABG pH 7.285 L POC ABG pCO2 62.0 H POC ABG pO2 80.9 L ABG pO2 ABG HCO3 ABG O2 Saturation ABG Base Excess ABG Hemoglobin 8.3 L ABG Oxyhemoglobin ABG Sodium ABG Potassium ABG Chloride ABG Glucose 144 H Oxyhemoglobin Carboxyhemoglobin Sodium Potassium Chloride Carbon Dioxide BUN Creatinine Glucose POC Glucose Hemoglobin A1c Lactic Acid Calcium Phosphorus Magnesium Ferritin Total Bilirubin AST ALT Lactate Dehydrogenase C-Reactive Protein Albumin Triglycerides Arterial Blood Glucose 144 H Arterial Blood Ionized Calcium Urine Creatinine Coronavirus (PCR) Crossmatch See Detail 03/04/21 03/04/21 Unknown Unknown WBC 13.9 H RBC 2.58 L Hgb 7.7 L Hct 24.0 L MCV MCH MCHC RDW 20.3 H Plt Count Lymph % (Auto) Lymph # (Auto) Seg Neutrophils % Seg Neuts % (Manual) Lymphocytes % (Manual) Monocytes % (Manual) Nucleated RBC % Seg Neutrophils # Seg Neutrophils # Man Lymphocytes # (Manual) Monocytes # (Manual) Eosinophils # (Manual) INR D-Dimer ABG pH POC ABG pCO2 POC ABG pO2 ABG pO2 ABG HCO3 ABG O2 Saturation ABG Base Excess ABG Hemoglobin ABG Oxyhemoglobin ABG Sodium ABG Potassium ABG Chloride ABG Glucose Oxyhemoglobin Carboxyhemoglobin Sodium Potassium Chloride Carbon Dioxide BUN 78 H Creatinine 2.5 H Glucose 131 H POC Glucose Hemoglobin A1c Lactic Acid Calcium 8.2 L Phosphorus Magnesium Ferritin Total Bilirubin AST ALT Lactate Dehydrogenase C-Reactive Protein Albumin Triglycerides Arterial Blood Glucose Arterial Blood Ionized Calcium Urine Creatinine Coronavirus (PCR) Crossmatch
--- NOTE | 2021-03-04 11:11 | Progress Note ---
Assessment and Plan Assessment and plan: This is a 60-year-old male with diabetes mellitus, hypertension, hyperlipidemia, chronic renal insufficiency who was admitted on 01/23 as a COVID-19 PUI with Sepsis, COVID-19 pneumonia, coag negative staph bacteremia, acute hypoxic respiratory failure, and acute kidney injury. Sepsis COVID-19 pneumonia Coag-neg Staph bacteremia Acute hypoxic respiratory failure Acute kidney injury, HD initiated 02/03 Anemia Diabetes mellitus Hypertension Hyperlipidemia Chronic renal insufficiency Elevated D-dimer Penile ulceration -[facility], nephrology, infectious disease, GI , vascular surgery, urology neurology consulted, appreciate recommendations -s/p Antibiotic therapy, remdesivir, Steroid therapy -COVID-19 PCR positive, Pneumonia on CXR -Mechanical ventilation, wean as tolerated -VAP bundle -HD per nephrology -S/p 5 units PRBC during stay -Trend BMP, CBC, COVID-19 inflammatory markers -Bilateral lower extremity and upper extremity Doppler ultrasound negative for DVT/SVT -SSI and Long-acting insulin -Accu-Cheks every 6 while on tube feedings -Hold home antihypertensive regimen and resume when appropriate -S/p vasopressor support -Blood pressure monitoring per protocol -S/p NaHCO3 gtt -02/17 CT head showed no acute intracranial abnormality, paranasal sinus disease -Bowel regimen -02/24 EEG finding consistent with encephalopathy and/or drug effect, possibility of toxic metabolic etiology cannot be excluded, possibility of structural lesion on the left side cannot be excluded given left being slightly slower than the right. -Neosporin twice daily to penile shaft ulcer -01/23, 02/18, 03/02 COVID-19 PCR positive -Permcath placement pending DVT/GI prophylaxis: SCDs to bilateral lower extremities while in bed, PPI, heparin subq Dispo: ICU The high probability of a clinically significant, sudden or life threatening deterioration of the [multi] system(s) required my full and direct attention, intervention and personal management. The aggregate critical care time was [35] minutes. This time is in addition to time spent performing reported procedures but includes the following: [x] Data Review and interpretation [x] Patient assessment and monitoring of vital signs [x] Documentation [x] Medication orders and management History Interval history: This is a 60-year-old male with diabetes mellitus, hypertension, hyperlipidemia, chronic renal insufficiency presents to the emergency department on 01/23 with shortness of breath, fevers chills, loss of smell and taste and body aches for the past 3 days via EMS. Per EMS patient's oxygen saturation on room air was 50% and after being placed on nonrebreather it increased 75%. Upon arrival to the emergency department patient was being bagged by EMS. In the emergency room patient was intubated due to severe hypoxia, increased work of breathing and lethargy. Patient was sedated on propofol and fentanyl. Patient presented with fever, tachycardia, tachypnea and acute hypoxic respiratory failure with PNA on CXR meeting Sepsis criteria. Lab work in the emergency department revealed hyponatremia, hypokalemia, hypochloremia, elevated CR/BUN and CXR showed bilateral pneumonia. Patient was admitted to the hospital service as a COVID-19 PUI with consults to infectious disease, nephrology and critical care medicine. 01/24/2021: Patient is intubated and sedated, patient is positive for COVID-19 infection. ID was consulted and put on dexamethasone and remdesivir. Patient has DEISI and nephrology is following. Creatinine stable, patient is urinating. Discussed with nephrology and he is okay with remdesivir. Pulmonary critical care is following for his vent setting. PEEP of 8 and FiO2 of 85%. Patient was alert and off sedatives. 01/25/2021; patient is intubated and on mechanical ventilation. Continue with treatment of Covid. Nephrology and ID is following. Pulmonary is following for vent management 01/26: Remains on mechanical ventilation and [facility] increased his PEEP. [facility] has ordered Precedex for sedation. Possibly need to prone this p.m. No acute events reported overnight. This morning his D-dimer is greater than 10,000 and we have started him on Lovenox 120 mg daily. Nutrition has been consulted for initiation of tube feedings. Patient remains sedated on propofol 40 and fentanyl for the time my examination this morning. 01/27: Continue Lovenox, remdesivir and empiric antibiotics. Patient had a T-max of 101 overnight. The time of examination patient is on CMV 500/18/14/0.61. Kidney function slightly worsened. Sedated on fentanyl ground-level fall and Precedex. Nephrology has increased IV fluids to 100 ml/hr. Continue to trend BMP and CBC. Sedation vacation attempt by RN this AM. 3/31: Patient completed antibiotics today [facility] will paralyze patient and increase sedation. PICC line ordered for possible vasopressor therapy need. Patient's D-dimer remains greater than 10,000 and he still has hyperchloremia. Patient's kidney function has improved today. May need to prone the patient if no improvement in oxygenation is noted in the next 24 hours. The time of my examination patient is sedated with propofol, fentanyl and Precedex and is on assist control 500/18/16/0.80 hypoxic on ABG on 60% FiO2. 01/29: Patient was started on Nimbex yesterday and his ABG this morning showed respiratory acidosis with hypercapnia and his respiratory rate was increased. We will obtain a repeat ABG this afternoon. This morning patient is hypernatremic, hyperkalemic and hyperchloremic. His potassium has been corrected with the management and will obtain repeat BMP tomorrow. His kidney functions have remained stable and we will await nephrology's input. No acute events reported overnight. This morning the time my examination patient sedated with propofol, Precedex and fentanyl and paralyzed with Nimbex. He is on assist control 500/24/16 0.80. 01/30: This morning patient is hypokalemic again and was given Kayexalate. Patient has hypernatremia and hyper chloremia and his renal function is slightly worse after receiving Lasix yesterday. His D-dimer remains greater than 10,000 and he is still on a paralytic. Patient is sedated on Precedex, fentanyl, propofol. Mechanical ventilation settings seven-point /61/28. [facility] has decided to continue paralytics for 48 more hours and will attempt proning the patient. Increased free water flushes 300 cc every 4 hours. Patient states has restarted his antibiotics cefepime and vancomycin and recultured. 01/31/21 Hyperkalemia, Treated 02/01/21 Hyperkalemia, Treated 02/02: Patient's kidney function continues to worsen and a stat BMP this morning shows BUN/creatinine 20/6.1 and he remains hypocalcemic and hypernatremic, hypokalemic and hypochloremic. Patient received 2 g of calcium gluconate and Meeta exalate and his repeat potassium was 4.3 this afternoon. He remains antibiotic therapy and steroids. Nephrology has placed the patient on bicarb drip given metabolic acidosis and has decided to hold off hemodialysis till tomorrow.The time my examination patient is sedated on fentanyl, Precedex and on assist control 500/20/12/0.70. s/p paralytic. 02/03: Today patient's ABG shows respiratory acidosis however it is improving, hypernatremia, hyperchloremia, metabolic acidosis on BMP, worsening kidney function BUN/creatinine 130/9.2 with hyperphosphatemia. Patient received a Vas- Cath to his right IJ for initiation of dialysis. At the time of my examination patient remains sedated on fentanyl, propofol and Precedex with vasopressor support with Levophed at 2. 02/04: At the time of examination patient was on assist control tidal volume 500, rate 40, PEEP of 12, FiO2 85%. Patient had a T-max of 100.9 and infectious disease has stopped his vancomycin given negative MRSA. This afternoon patient respiked his temperature and was pancultured again. Patient was started on hemodialysis yesterday and will receive HD again today. Patient is sedated on Precedex, propofol, fentanyl and remains on Levophed. He is on assist control tidal volume 500, rate of 30, PEEP of 12, FiO2 of 85%. Patient still has some respiratory acidosis however his hypernatremia and hyperchloremia have improved and his metabolic acidosis has resolved. Patient will receive hemodialysis today 02/05: Patient continues to have low-grade fever temp this morning time examination he was on assist control tidal volume 500, and sedated on propofol/fentanyl/Precedex and is on Levophed. Hemodialysis per nephrology. Antibiotics per ID. Patient's blood culture from 02/04 grew gram-positive cocci in clusters in 1/2 bottles and he was started on vancomycin. 02/06: Patients ABG showed respiratory acidosis and the tracings were changed however a repeat ABG showed showed acidosis.[facility] will start a bicarb drip after giving 2 amps of bicarb push. Yesterday patient blood cultures grew gram- positive cocci and he was started on vancomycin. At the time my examination patient was on assist control tidal volume 550, rate 34, PEEP 16, FiO2 90% and sedated on fentanyl, Precedex, propofol elevated pressure support with Levophed. Bilateral lower extremity Doppler ultrasounds done yesterday showed no evidence of DVT/SVT. 02/07/2021; patient is still on the vent with PEEP of 16 and FiO2 of 90%, sedated with fentanyl Precedex and propofol. Patient still requiring Levophed. Patient was sedated yesterday and was given bicarb push. Blood culture grew gram-positive cocci in clusters and he is on vancomycin, will follow kristi ntification. 02/08/2021;patient is still on the vent with PEEP of 16 and FiO2 of 90%, sedated with fentanyl Precedex and propofol. Patient still requiring Levophed. Patient was sedated yesterday and was given bicarb push. Blood culture grew gram- positive cocci in clusters and he is on vancomycin, will follow identification. Patient is currently on dialysis. Patient is anemic transfuse if hemoglobin is below 7. 02/09: This morning patient has slight hypokalemia, hypochorlemia, hyponatremia a nd metabolic alkalosis. [facility] will continue bicarb gtt given that the patient does not have HD access at this time. We will replete the potassium and recheck BMP in the AM. We will type and cross in anticipation of PRBC transfusion. This morning he is sedated on Ativan, fentayl, and precedex. Will obtain a triglyceride level today in hopes to resume propofol. Patient is alkalotic and BMP however we will continue with bicarb drip per [facility] given that the patient does not have any access for hemodialysis. Anticipate replacing hemodialysis catheter tomorrow or Tuesday. The time my examination he is on AC TV 550, Rate 34, PeeP 16, FiO2 .65. 02/10: A.m. labs still pending, [facility] plans to replace HD catheter tomorrow as the patient is still febrile however his fever curve is trending down, remains on a bicarb drip and on vancomycin. Today at the time my examination patient was sedated on Precedex, Ativan and fentanyl and he is on assist control tidal 11/04/1951, rate 34, PEEP 16, FiO2 65%. Overnight patient was hypotensive and received 1 dose of midodrine. 02/11: Patient is still having low-grade temperatures that we will obtain a bilateral lower upper extremity venous Doppler ultrasound given that his repeat cultures have been negative so far. Patient received a Vas-Cath today for he modialysis. The time examination patient is on assist control tidal volume 550, rate of 34, PEEP of 16 and FiO2 of 75%. Patient was hypokalemic and anemic yesterday which were both repleted with potassium and 1 unit PRBC. 02/12: 02/12: Patient had a 12-second run of V. tach today, his potassium and magnesium were low which was repleted. Renal adjusted potassium bath. We will obtain a triglyceride level in hopes to restarting to prevent as needed. This morning at the time my examination patient was sedated on fentanyl, Ativan and Precedex and remained on a bicarb drip. He was on assist control tidal volume 550, rate 34, PEEP 16, FiO2 85%. We will obtain a occult stool given no evident source of bleeding and need for transfusion. Anemia possibly due to hemodialysis. 02/13: Patient's T-max was 100.7, remains on fentanyl, Ativan, Precedex and bicarb drip this morning at some examination on assist control tidal volume 550, rate 34, PEEP 16 and FiO2 85%. On the labs this morning is slightly hypokalemic and remains metabolic alkalotic on BMP. His occult was positive. His Lovenox and consult GI. Patient received hemodialysis today. 02/14: cont PPI, GI recommended to scope now, monitor clinically, tolerating TF, remains intubated. Hb 6.9 today - transfuse another unit. very poor prognosis. 02/15: H&H appears to be stable following 1 unit of transfusion yesterday. Continue to hold heparin and aspirin products. Continue to monitor clinically. Poor prognosis. Wean off from vent as tolerated. 02/16: Infectious disease has signed off, his Ativan drip was discontinued and to prevent drip will be started when patient needs it. T-max 100.6 yesterday afternoon. He received hemodialysis today and at the time my examination was still on mechanical ventilation assist control tidal volume 550, rate 34, PEEP 16 on 70% FiO2. Patient was sedated on fentanyl dexamethasone and Ativan. No acute events reported overnight. 02/17: This morning patient was scheduled to get 2 units PRBC however his repeat H/H after 1 unit PRBC was 7.6/22.8 and the width of the second unit PRBC. This morning patient was sedated on fentanyl, propofol, Precedex and on assist control tolerated by 50, rate 34, PEEP of 16, FiO2 35%. Wound care was consulted today for his upper lip wound. Nephrology continues to withhold dialysis. No acute events reported overnight. Dr. Adkins was unable to contact family for updates. 02/18: Family updated by Dr. Adkins and Dr. Reddy. Patient had a hemodialysis today. The time my examination patient was on assist control tidal volume 550, rate 34, PEEP 16 and FiO2 35%. Overnight patient had a CT head and he was placed on 3% FiO2 and took "a long time to recover" per RN report. 02/19: Patient's D-dimer is trending up therefore he was started on prophylactic anticoagulation, no bowel movement for several days so he was started on mag citrate today. The time examination patient is sedated on Precedex 1.2, fentanyl 3, propofol 20 on assist control tidal volume 550, rate 34, PEEP 16, 80% FiO2 and on his ABG his PaO2 is 106. RT will try to wean as tolerated. Repeat COVID-19 PCR today was positive.Dr. Adkins updated the family today. 02/20: Patient received hemodialysis today. In the time my examination patient was sedated on Precedex, fentanyl, propofol and on assist control tidal line 550, rate 34, PEEP of 16 and 75% FiO2. Patient had a bowel movement yesterday. 02/21 no new concerns at this time afebrile Hospital course remains uncomplicated. 02/22. Hospital course complicated by an episode of ectopy over the p.m. Lauro hernandez required Levophed for blood pressure control. Remains intubated sedated. Tolerated hemodialysis yesterday. 02/23: At the time my examination patient is on assist control tidal volume 550, rate 34, PEEP 16, FiO2 70% and is not sedated. Patient does not follow commands however his eyes open spontaneously and he does not track/focus. 02/24: Neurology consulted, EEG pending. No acute events reported overnight. Patient remains on hyperventilation totaling 550, rate 34, PEEP of 16 on 70% Fi O2. Patient received hemodialysis yesterday. 02/25: EEG from 02/24 is suggestive of encephalopathy (toxic metabolic etiology cannot be excluded). This afternoon his peak pressures and and mean airway pressure is elevated so we obtained a CXR and ABG. Results were called to Dr. Masters. Patient received 2 mg of Versed was placed back on his sedation with fentanyl and Precedex. 02/26: Patient is on pressure ventilation FiO2 70%, Pressure inspiration 25, rate 34, PEEP 10 and sedated on fentanyl at 2mcgs and Precedex at 0.2. We will obtain a cxr for evaluation. Patient seems to be much more comfortable today. 02/27: CXr unchanged, at the time of my examination patient is on pressure control ventilation FiO2 70%, pressure support 26, rate 34 n.p.o. for 10 and sedated on fentanyl at 2 and Precedex at 0.1. His latest ABG 7.3, CO2 49, PO2 111, base excess 24. Patient is to receive hemodialysis today. No acute events reported overnight. Patient still not following commands. 02/28: Continue mechanical ventilation per pulmonary recommendations. Patient currently in AC mode ventilation rate 34, FiO2 70%, PEEP 15. 02/24 EEG finding consistent with encephalopathy and/or drug effect, possibility of toxic metabolic etiology cannot be excluded, possibility of structural lesion on the left side cannot be excluded given left being slightly slower than the right. Continue hemodialysis per nephrology. Currently with sedation of fentanyl and Precedex. Pulmonary plans for trach when ventilator settings allow. 03/01: Patient remains on mechanical ventilation AC mode, FiO2 70%, PEEP of 10. Hemodialysis initiated on 02/03/2021. Continue per nephrology. Patient will need tracheostomy once ventilator settings allow. Continue supportive care with tube feedings. Aspiration precautions. Patient appears to have penile ulceration and purulence. Consult urology for further evaluation. Prognosis remains guarded. 03/02: Tentative plan to place permacath tomorrow, patient will be n.p.o. after midnight and repeat COVID-19 PCR was ordered. Urology was consulted for a possible penile fistula. Patient received hemodialysis today. Today at the time of examination patient was on pressure control ventilation with a PEEP of 10 and FiO2 of 60 sedated on fentanyl and Precedex. 03/03: Patient noted to be anemic and ordered 1 unit of PRBC to be transfused, [facility] thinks patient has suffered from oxygen toxicity from prolonged time on high levels of oxygen (greater than 60%) for several weeks. The time my examination patient was on volume control ventilation and he remains off sedation. 03/04: Patient H/H today and 7.04/30:24 unit PRBC yesterday. Patient remains on pressure control ventilation with a pressure support of 26, FiO2 55, rate of 24 and PEEP of 10. His sedation was restarted yesterday for increase WOB and tachypnea. Patient is sedated on fentanyl and dexamethasone. We will continue current management and possibly obtain a CT head on Tuesday if no improvement in mental status. Hospitalist Physical - Constitutional Vitals: Temp Pulse Resp BP Pulse Ox 98.6 F 103 H 35 H 127/76 96 03/04/21 08:00 03/04/21 10:15 03/04/21 10:15 03/04/21 10:15 03/04/21 10:15 General appearance: Present: no acute distress, obese, other (on mechanical ventilation) HEART Score - HEART Score Risk factors: 1-2 risk factors Troponin: < normal limit - Critical Actions Critical Actions: 0-3 pts:0.9-1.7%risk of adverse cardiac event.Candidate for discharge Results - Labs CBC & Chem 7: 03/04/21 Unknown 03/04/21 Unknown Labs: Laboratory Last Values WBC 13.9 K/mm3 (4.5-11.0) H 03/04/21 Unknown RBC 2.58 M/mm3 (3.65-5.03) L 03/04/21 Unknown Hgb 7.7 gm/dl (11.8-15.2) L 03/04/21 Unknown Hct 24.0 % (35.5-45.6) L 03/04/21 Unknown MCV 93 fl (84-94) 03/04/21 Unknown MCH 30 pg (28-32) 03/04/21 Unknown MCHC 32 % (32-34) 03/04/21 Unknown RDW 20.3 % (13.2-15.2) H 03/04/21 Unknown Plt Count 386 K/mm3 (140-440) 03/04/21 Unknown Lymph % (Auto) 11.0 % (13.4-35.0) L 02/15/21 05:00 [place] % (Auto) 4.2 % (0.0-7.3) 02/15/21 05:00 Eos % (Auto) 1.2 % (0.0-4.3) 02/15/21 05:00 Baso % (Auto) 0.6 % (0.0-1.8) 02/15/21 05:00 Lymph # (Auto) 1.1 K/mm3 (1.2-5.4) L 02/15/21 05:00 [place] # (Auto) 0.4 K/mm3 (0.0-0.8) 02/15/21 05:00 Eos # (Auto) 0.1 K/mm3 (0.0-0.4) 02/15/21 05:00 Baso # (Auto) 0.1 K/mm3 (0.0-0.1) 02/15/21 05:00 Add Manual Diff Complete 02/24/21 04:25 Total Counted 100 02/24/21 04:25 Seg Neutrophils % 83.0 % (40.0-70.0) H 02/15/21 05:00 Seg Neuts % (Manual) 82.0 % (40.0-70.0) H 02/24/21 04:25 Band Neutrophils % 2.0 % 02/16/21 Unknown Lymphocytes % (Manual) 3.0 % (13.4-35.0) L 02/24/21 04:25 Reactive Lymphs % (Man) 1.0 % 01/27/21 05:29 Monocytes % (Manual) 11.0 % (0.0-7.3) H 02/24/21 04:25 Eosinophils % (Manual) 1.0 % (0.0-4.3) 02/24/21 04:25 Basophils % (Manual) 1.0 % (0.0-1.8) 02/24/21 04:25 Metamyelocytes % 2.0 % 02/24/21 04:25 Nucleated RBC % Not Reportable 02/24/21 04:25 Seg Neutrophils # 8.6 K/mm3 (1.8-7.7) H 02/15/21 05:00 Seg Neutrophils # Man 9.4 K/mm3 (1.8-7.7) H 02/24/21 04:25 Band Neutrophils # 0.0 K/mm3 02/24/21 04:25 Lymphocytes # (Manual) 0.3 K/mm3 (1.2-5.4) L 02/24/21 04:25 Abs React Lymphs (Man) 0.0 K/mm3 02/24/21 04:25 Monocytes # (Manual) 1.3 K/mm3 (0.0-0.8) H 02/24/21 04:25 Eosinophils # (Manual) 0.1 K/mm3 (0.0-0.4) 02/24/21 04:25 Basophils # (Manual) 0.1 K/mm3 (0.0-0.1) 02/24/21 04:25 Metamyelocytes # 0.2 K/mm3 02/24/21 04:25 Myelocytes # 0.0 K/mm3 02/24/21 04:25 Promyelocytes # 0.0 K/mm3 02/24/21 04:25 Blast Cells # 0.0 K/mm3 02/24/21 04:25 WBC Morphology Not Reportable 02/24/21 04:25 Hypersegmented Neuts Not Reportable 02/24/21 04:25 Hyposegmented Neuts Not Reportable 02/24/21 04:25 Hypogranular Neuts Not Reportable 02/24/21 04:25 Smudge Cells Not Reportable 02/24/21 04:25 Toxic Granulation Not Reportable 02/24/21 04:25 Toxic Vacuolation Not Reportable 02/24/21 04:25 Dohle Bodies Not Reportable 02/24/21 04:25 Pelger-Huet Anomaly Not Reportable 02/24/21 04:25 Fátima Rods Not Reportable 02/24/21 04:25 Platelet Estimate Consistent w auto 02/24/21 04:25 Clumped Platelets Not Reportable 02/24/21 04:25 Plt Clumps, EDTA Not Reportable 02/24/21 04:25 Large Platelets Not Reportable 02/24/21 04:25 Giant Platelets Not Reportable 02/24/21 04:25 Platelet Satelliting Not Reportable 02/24/21 04:25 Plt Morphology Comment Not Reportable 02/24/21 04:25 RBC Morphology Not Reportable 02/24/21 04:25 Dimorphic RBCs Not Reportable 02/24/21 04:25 Polychromasia Few 02/24/21 04:25 Hypochromasia Not Reportable 02/24/21 04:25 Poikilocytosis Not Reportable 02/24/21 04:25 Anisocytosis 1+ 02/24/21 04:25 Microcytosis Not Reportable 02/24/21 04:25 Macrocytosis Not Reportable 02/24/21 04:25 Spherocytes Not Reportable 02/24/21 04:25 Pappenheimer Bodies Not Reportable 02/24/21 04:25 Sickle Cells Not Reportable 02/24/21 04:25 Target Cells Not Reportable 02/24/21 04:25 Tear Drop Cells Not Reportable 02/24/21 04:25 Ovalocytes Not Reportable 02/24/21 04:25 Helmet Cells Not Reportable 02/24/21 04:25 [place] Bodies Not Reportable 02/24/21 04:25 [place] Rings Not Reportable 02/24/21 04:25 Ludmila Cells Not Reportable 02/24/21 04:25 Bite Cells Not Reportable 02/24/21 04:25 Crenated Cell Not Reportable 02/24/21 04:25 Elliptocytes Not Reportable 02/24/21 04:25 Acanthocytes (Spur) Not Reportable 02/24/21 04:25 Rouleaux Not Reportable 02/24/21 04:25 Hemoglobin C Crystals Not Reportable 02/24/21 04:25 Schistocytes Not Reportable 02/24/21 04:25 Malaria parasites Not Reportable 02/24/21 04:25 Aquiles Bodies Not Reportable 02/24/21 04:25 Hem Pathologist Commnt No 02/24/21 04:25 PT 14.6 Sec. (12.2-14.9) 03/03/21 Unknown INR 1.15 (0.87-1.13) H 03/03/21 Unknown D-Dimer 6536.84 ng/mlDDU (0-234) H 02/25/21 09:03 ABG pH 7.285 (7.320-7.450) L 03/04/21 03:28 POC ABG pCO2 62.0 mmHg (32.0-48.0) H 03/04/21 03:28 ABG pCO2 69.7 mm Hg 03/03/21 03:50 POC ABG pO2 80.9 mmHg (83-108) L 03/04/21 03:28 ABG pO2 85.8 mm Hg (80.0-90.0) 03/03/21 03:50 POC ABG HCO3 28.8 03/04/21 03:28 ABG HCO3 31.7 mmol/L (20.0-26.0) H 03/03/21 03:50 ABG O2 Saturation 95.4 (0-100) 03/04/21 03:28 ABG O2 Content 9.0 (0.0-44) 03/03/21 03:50 POC ABG Base Excess 1.6 03/04/21 03:28 ABG Base Excess 4.3 mmol/L (-2.0-3.0) H 03/03/21 03:50 ABG Hemoglobin 8.3 (12.0-17.5) L 03/04/21 03:28 ABG Oxyhemoglobin 96.9 (94-98) 03/01/21 03:29 ABG Carboxyhemoglobin 2.4 % (0.0-5.0) 03/03/21 03:50 ABG Methemoglobin 0.6 % (0.0-1.5) 03/03/21 03:50 ABG Sodium 140.5 mmol/L (136.0-145.0) 03/04/21 03:28 ABG Potassium 3.9 mmol/L (3.40-4.50) 03/04/21 03:28 ABG Chloride 106.0 mmol/L (98-107) 03/04/21 03:28 ABG Glucose 144 mg/dL (65-95) H 03/04/21 03:28 Oxyhemoglobin 93.5 % (95.0-99.0) L 03/03/21 03:50 Carboxyhemoglobin 1.6 (0.5-1.5) H 03/01/21 03:29 FiO2 55 % 03/03/21 03:50 FiO2 % 55 03/04/21 03:28 Sodium 143 mmol/L (137-145) 03/04/21 Unknown Potassium 4.0 mmol/L (3.6-5.0) 03/04/21 Unknown Chloride 102.9 mmol/L (98-107) 03/04/21 Unknown Carbon Dioxide 30 mmol/L (22-30) 03/04/21 Unknown Anion Gap 14 mmol/L 03/04/21 Unknown BUN 78 mg/dL (9-20) H 03/04/21 Unknown Creatinine 2.5 mg/dL (0.8-1.3) H 03/04/21 Unknown Estimated GFR 32 ml/min 03/04/21 Unknown BUN/Creatinine Ratio 31 % 03/04/21 Unknown Glucose 131 mg/dL (75-100) H 03/04/21 Unknown POC Glucose 135 mg/dL (70-105) H 03/03/21 23:34 Hemoglobin A1c 6.3 % (4-6) H 02/02/21 16:00 Lactic Acid 1.90 mmol/L (0.7-2.0) 01/24/21 14:38 Calcium 8.2 mg/dL (8.4-10.2) L 03/04/21 Unknown Phosphorus 7.90 mg/dL (2.5-4.5) H 02/21/21 16:35 Magnesium 2.60 mg/dL (1.7-2.3) H 02/21/21 16:35 Ferritin 867.8 ng/mL (30.0-300.0) H 02/26/21 05:48 Total Bilirubin 1.50 mg/dL (0.1-1.2) H 01/26/21 05:47 AST 37 units/L (5-40) 01/26/21 05:47 ALT 29 units/L (7-56) 01/26/21 05:47 Alkaline Phosphatase 70 units/L (35-129) 01/26/21 05:47 Lactate Dehydrogenase 345 units/L (91-180) H 02/19/21 05:45 C-Reactive Protein 5.90 mg/dL (0.00-1.30) H 02/26/21 05:48 Total Protein 7.2 g/dL (6.3-8.2) 01/26/21 05:47 Albumin 2.2 g/dL (3.9-5) L 01/26/21 05:47 Albumin/Globulin Ratio 0.4 % 01/26/21 05:47 Triglycerides 195 mg/dL (2-149) H 02/19/21 05:45 Procalcitonin 18.94 ng/mL (<0.15) 02/16/21 17:09 Arterial Blood Glucose 144 mg/dL (65-95) H 03/04/21 03:28 Arterial Blood Ionized Calcium 4.7 mg/dL (4.6-5.3) 03/04/21 03:28 Urine Color Nehal (Yellow) 01/22/21 22:39 Urine Turbidity Cloudy (Clear) 01/22/21 22:39 Urine pH 5.0 (5.0-7.0) 01/22/21 22:39 Ur Specific [place] 1.017 (1.003-1.030) 01/22/21 22:39 Urine Protein 100 mg/dl mg/dL (Negative) 01/22/21 22:39 Urine Glucose (UA) Neg mg/dL (Negative) 01/22/21 22:39 Urine Ketones Neg mg/dL (Negative) 01/22/21 22:39 Urine Blood Mod (Negative) 01/22/21 22:39 Urine Nitrite Neg (Negative) 01/22/21 22:39 Urine Bilirubin Neg (Negative) 01/22/21 22:39 Urine Urobilinogen 2.0 mg/dL (<2.0) 01/22/21 22:39 Ur Leukocyte Esterase Mod (Negative) 01/22/21 22:39 Urine WBC (Auto) < 1.0 /HPF (0.0-6.0) 01/22/21 22:39 Urine RBC (Auto) < 1.0 /HPF (0.0-6.0) 01/22/21 22:39 U Epithel Cells (Auto) < 1.0 /HPF (0-13.0) 01/22/21 22:39 Urine Osmolality 416 Mosm/kg 01/30/21 12:15 Urine Total Volume 2300 ml 01/30/21 12:00 Urine Creatinine 53.0 mg/dL (0.1-20.0) H 01/30/21 12:00 Ur Creatinine 24 Hour 1.2 (0.8-2.8) 01/30/21 12:00 Urine Sodium 28 mmol/L 01/22/21 22:39 Nasal Screen MRSA (PCR) Negative (Negative) 02/02/21 13:20 Random Vancomycin 13.7 ug/mL (0-40.0) 02/07/21 10:40 Coronavirus (PCR) Positive (Negative) A 03/02/21 08:35 Hepatitis A IgM Ab Non-reactive (NonReactive) 02/03/21 Unknown Hep Bs Antigen Non-reactive (Negative) 02/03/21 Unknown Hep B Core IgM Ab Non-reactive (NonReactive) 02/03/21 Unknown Hepatitis C Antibody Non-reactive (NonReactive) 02/03/21 Unknown Blood Type B POSITIVE 03/03/21 Unknown Antibody Screen Negative 03/03/21 Unknown Crossmatch See Detail 03/03/21 Unknown Black/IV: Voiding Method Incontinent Active Medications - Current Medications Current Medications: Generic Name Dose Route Start Last Admin Trade Name Freq PRN Reason Stop Dose Admin Acetaminophen 650 mg 01/24/21 12:58 02/25/21 13:31 Acetaminophen 325 Mg/10.15 Ml Oral Liqd Unit Dose FEEDTUBE 650 mg Q6H PRN Administration Pain, Mild (1-3) Lipase/Protease/Amylase 1 each 01/26/21 14:25 Lipase 10,500/Protease 25,000/Amylase 43,750 (Units) Dr Cap FEEDTUBE PRN PRN For Clogged Feeding Tube Dextrose 50 ml 01/27/21 07:24 Dextrose 50% In Water (25gm) 50 Ml Syringe IV Q30MIN PRN Hypoglycemia Protocol Fentanyl 50 mcg 01/22/21 22:39 02/25/21 10:25 Fentanyl 100 Mcg/2 Ml Inj IV 50 mcg Q10MIN PRN Administration ANALGESIA Heparin Sodium (Porcine) 2,000 unit 02/11/21 09:38 02/21/21 21:25 Heparin 10,000 Units/10 Ml Vial IV 2,000 unit SAGRARIO PRN Administration hemodialysis Heparin Sodium (Porcine) 5,000 unit 02/19/21 14:00 03/04/21 05:31 Heparin 5,000 Unit/1 Ml Vial SUB-Q 5,000 unit Q8HR CECE Administration Fentanyl Citrate 2,000 mcg in 100 mls @ 6.124 mls/hr 01/22/21 23:00 03/04/21 05:05 Fentanyl Drip Premix IV 2 mcg/kg/hr TITR CECE 12.247 mls/hr Administration Protocol 1 MCG/KG/HR Propofol 1,000 mg in 100 mls @ 3.674 mls/hr 01/22/21 23:45 02/21/21 08:30 Diprivan 10 Mg/Ml IV 0 mcg/kg/min TITR CECE 0 mls/hr Titration Protocol 5 MCG/KG/MIN Norepinephrine 4 mg in 250 mls @ 7.5 mls/hr 01/28/21 14:00 02/22/21 18:27 Levophed Drip 4 Mg/Ns 250 Ml IV 0 mcg/min TITR CECE 0 mls/hr Titration Protocol 2 MCG/MIN Dexmedetomidine HCl 1,000 mcg/ 260 mls @ 6.368 mls/hr 01/30/21 20:00 03/04/21 05:48 Sodium Chloride IV 0.9 mcg/kg/hr TITRATE CECE 28.658 mls/hr Administration Protocol 0.2 MCG/KG/HR Sodium Chloride 100 mls @ 999 mls/hr 02/27/21 11:00 Nacl 0.9% IV SAGRARIO PRN Hypotension Lansoprazole 30 mg 02/18/21 10:00 03/04/21 09:33 Lansoprazole 30 Mg Solutab FEEDTUBE 30 mg QDAY CECE Administration Neomycin/Polymyxin/Bacitracin 1 applic 03/02/21 15:00 03/04/21 09:33 Neomy 3.5 Mg/Bacit 400 Units/Poly B 5000 Units/Gm Oint Packet TP 1 applic TID CECE Administration Senna/Docusate Sodium 1 tab 02/25/21 10:00 03/04/21 09:33 Sennosides/Docusate Sodium 8.6/50 Mg Tab PO 1 tab BID CECE Administration Simple Syrup 15 ml 01/26/21 14:25 02/21/21 21:24 Simple Syrup 15 Ml FEEDTUBE 15 ml PRN PRN Administration Hypoglycemia Simple Syrup 30 ml 01/26/21 14:25 Simple Syrup 15 Ml FEEDTUBE PRN PRN Hypoglycemia Sodium Bicarbonate 325 mg 01/26/21 14:25 Sodium Bicarbonate 325 Mg Tab FEEDTUBE PRN PRN For Clogged Feeding Tube Nutrition/Malnutrition Assess - Dietary Evaluation Nutrition/Malnutrition Findings: Nutrition Notes Start: 01/26/21 13:59 Freq: Status: Active Protocol: Document 03/04/21 08:52 AT (Rec: 03/04/21 08:58 AT [id number]) Co-Sign 03/04/21 08:52 Nutrition Notes Initial or Follow up Reassessment Current Diagnosis Acute Kidney Injury,Diabetes, Sepsis,Hypertension, Respiratory Failure, Hyperlipidemia Other Pertinent Diagnosis on HD, COVID-19 (+), bilat pneu Current Diet TF - Nepro at 46 ml/hr Labs/Tests BUN 78 Cr 2.5 BG 131 Pertinent Medications Phentanyl Height 5 ft 8 in Weight 105 kg [place] Body Weight (kg) 70.00 BMI 35.2 Weight change and time frame Wt change noted. Weight Status Obese Burn Absent Trauma Absent GI Symptoms Constipation Difficulty In Swallowing Skin Integrity/Comment pressure ulcer to lips Current % PO Negligible Minimum of two criteria No Fluid Accumulation Moderate to Severe (severe) #2 Nutrition Diagnosis Increased nutrient needs ( specify in comment below) Diagnosis Progress(for reassessment Continues documentation) #1 Nutrition Diagnosis Inadequate oral intake Diagnosis Progress(for reassessment Continues documentation) Is patient on ventilator? Yes Is Patient Ambulatory and/or Out of Bed No REE-([place]-St. Jeor-confined to bed) 2194.092 Kcal/Kg value to use for calculation 17 Approximate Energy Requirements Using 1785 kcal/Kg Calculation Used for Recommendations Kcal/kg Additional Notes PRO needs: >105g (>1.2 g/kg AdBW 87.5 kg) Fluid needs: 500 + total output or per MD Nutrition Intervention Change Diet Order: Continue TF Nutrition Support: Nepro at 46 ml/hr with a free water flush of 200 ml q4h. Kcal 1,987 Protein (gm) 89 Fluid (mL) 803 Goal #1 TF tolerance Goal #2 TF to meet at least 75% energy and pro needs Anticipated Discharge Needs: unable to determine at this time Follow-Up By: 03/06/21 Additional Comments F/U for stable TF
--- NOTE | 2021-03-04 12:32 | Progress Note ---
Assessment and Plan Assessment: Acute Hypoxic respiratory failure COVID-19 PNA Severe sepsis with septic shock Acute kidney injury secondary to ATN Hyperkalemia Hypernatremia DM2 on insulin Anemia Plan: Hold hemodialysis for now. Serum creatinine 2.5 today. RN reports patient is now making urine but is incontinent Ordered marrufo catheter placement for 24 hour urine collection for creatinine clearance Hold off on perm-cath placement for now Initiated on HD on 02/03/21 Has Right IJ Trialysis dialysis catheter Strict I&O's monitoring Renally dose medications Assess dialysis needs daily Monitor for renal recovery Subjective Date of service: 03/04/21 Principal diagnosis: DEISI Interval history: Patient not directly seen or examined due to being with active COVID-19 infec tion to limit/reduce risk of exposure and or transmission of the disease in this pandemic and due to limited PPE resources. Objective - Vital Signs Vital signs: Vital Signs - 12hr 03/04/21 03/04/21 03/04/21 00:45 01:00 01:15 Temperature Pulse Rate 105 H 106 H 108 H Pulse Rate [ From Monitor] Respiratory 34 H 34 H 33 H Rate Blood Pressure 108/64 114/68 115/66 O2 Sat by Pulse 95 94 95 Oximetry 03/04/21 03/04/21 03/04/21 01:30 01:45 02:00 Temperature Pulse Rate 107 H 106 H 106 H Pulse Rate [ From Monitor] Respiratory 34 H 34 H 32 H Rate Blood Pressure 115/69 114/63 110/61 O2 Sat by Pulse 96 93 92 Oximetry 03/04/21 03/04/21 03/04/21 02:15 02:30 02:45 Temperature Pulse Rate 105 H 105 H 105 H Pulse Rate [ From Monitor] Respiratory 34 H 34 H 33 H Rate Blood Pressure 114/63 108/59 116/63 O2 Sat by Pulse 97 97 97 Oximetry 03/04/21 03/04/21 03/04/21 03:00 03:15 03:30 Temperature Pulse Rate 105 H 107 H 107 H Pulse Rate [ From Monitor] Respiratory 33 H 33 H 33 H Rate Blood Pressure 116/63 123/67 118/64 O2 Sat by Pulse 94 96 90 Oximetry 03/04/21 03/04/21 03/04/21 03:45 03:49 04:00 Temperature 99.9 F H Pulse Rate 107 H 108 H Pulse Rate [ 108 H From Monitor] Respiratory 36 H 34 H Rate Blood Pressure 127/59 123/63 O2 Sat by Pulse 92 91 Oximetry 03/04/21 03/04/21 03/04/21 04:12 04:15 04:30 Temperature Pulse Rate 108 H 108 H 109 H Pulse Rate [ From Monitor] Respiratory 10 L 31 H Rate Blood Pressure 123/63 125/71 125/65 O2 Sat by Pulse 97 93 Oximetry 03/04/21 03/04/21 03/04/21 04:45 05:00 05:15 Temperature Pulse Rate 107 H 111 H Pulse Rate [ From Monitor] Respiratory 35 H 31 H Rate Blood Pressure 121/68 107/70 99/52 O2 Sat by Pulse 95 95 96 Oximetry 03/04/21 03/04/21 03/04/21 05:30 05:45 06:00 Temperature Pulse Rate 109 H 106 H 104 H Pulse Rate [ From Monitor] Respiratory 31 H 31 H 32 H Rate Blood Pressure 124/63 119/65 121/68 O2 Sat by Pulse 87 97 97 Oximetry 03/04/21 03/04/21 03/04/21 06:15 06:30 06:45 Temperature Pulse Rate 102 H 103 H 106 H Pulse Rate [ From Monitor] Respiratory 36 H 36 H 35 H Rate Blood Pressure 110/62 114/67 123/66 O2 Sat by Pulse 97 97 97 Oximetry 03/04/21 03/04/21 03/04/21 07:00 07:15 07:30 Temperature Pulse Rate 104 H 103 H 102 H Pulse Rate [ From Monitor] Respiratory 34 H 35 H 34 H Rate Blood Pressure 116/65 113/62 108/61 O2 Sat by Pulse 96 97 97 Oximetry 03/04/21 03/04/21 03/04/21 07:34 07:45 08:00 Temperature 98.6 F Pulse Rate 103 H 101 H 102 H Pulse Rate [ From Monitor] Respiratory 39 H 34 H Rate Blood Pressure 108/61 107/64 107/60 O2 Sat by Pulse 100 99 98 Oximetry 03/04/21 03/04/21 03/04/21 08:15 08:30 08:45 Temperature Pulse Rate 102 H 103 H 101 H Pulse Rate [ From Monitor] Respiratory 34 H 35 H 33 H Rate Blood Pressure 107/63 114/63 109/62 O2 Sat by Pulse 98 98 96 Oximetry 03/04/21 03/04/21 03/04/21 09:00 09:15 09:30 Temperature Pulse Rate 103 H 102 H 103 H Pulse Rate [ From Monitor] Respiratory 27 H 21 34 H Rate Blood Pressure 130/72 121/64 123/70 O2 Sat by Pulse 86 97 97 Oximetry 03/04/21 03/04/21 03/04/21 09:45 10:00 10:15 Temperature Pulse Rate 103 H 103 H 103 H Pulse Rate [ From Monitor] Respiratory 33 H 35 H 35 H Rate Blood Pressure 133/77 135/79 127/76 O2 Sat by Pulse 98 96 96 Oximetry 03/04/21 12:00 Temperature 98.4 F Pulse Rate Pulse Rate [ From Monitor] Respiratory Rate Blood Pressure O2 Sat by Pulse Oximetry - Lab 03/04/21 Unknown 03/04/21 Unknown Most recent lab results ABG pH 7.285 (7.320-7.450) L 03/04/21 03:28 ABG pCO2 69.7 mm Hg 03/03/21 03:50 ABG pO2 85.8 mm Hg (80.0-90.0) 03/03/21 03:50 ABG HCO3 31.7 mmol/L (20.0-26.0) H 03/03/21 03:50 ABG O2 Saturation 95.4 (0-100) 03/04/21 03:28 Calcium 8.2 mg/dL (8.4-10.2) L 03/04/21 Unknown Phosphorus 7.90 mg/dL (2.5-4.5) H 02/21/21 16:35 Magnesium 2.60 mg/dL (1.7-2.3) H 02/21/21 16:35 Urine Creatinine 53.0 mg/dL (0.1-20.0) H 01/30/21 12:00 Urine Sodium 28 mmol/L 01/22/21 22:39 Medications & Allergies - Medications Allergies/Adverse Reactions: Allergies No Known Allergies Allergy (Unverified 03/12/20 13:41) Home Medications: Home Medications Medication Instructions Recorded Confirmed Last Taken Type Insulin NPH/Regular [Novolin 70/30] 18 unit SUB-Q TIDAC #1 vial 03/12/20 03/02/21 Unknown Rx Syringe-Needle,Insulin,0.5 ml 1 box MC TID #1 box 03/12/20 03/02/21 Unknown Rx [Insulin Syringe/Needle 0.5 ML] Active Medications: Generic Name Dose Route Start Last Admin Trade Name Freq PRN Reason Stop Dose Admin Acetaminophen 650 mg 01/24/21 12:58 02/25/21 13:31 Acetaminophen 325 Mg/10.15 Ml Oral Liqd Unit Dose FEEDTUBE 650 mg Q6H PRN Administration Pain, Mild (1-3) Lipase/Protease/Amylase 1 each 01/26/21 14:25 Lipase 10,500/Protease 25,000/Amylase 43,750 (Units) Dr Cap FEEDTUBE PRN PRN For Clogged Feeding Tube Dextrose 50 ml 01/27/21 07:24 Dextrose 50% In Water (25gm) 50 Ml Syringe IV Q30MIN PRN Hypoglycemia Protocol Fentanyl 50 mcg 01/22/21 22:39 02/25/21 10:25 Fentanyl 100 Mcg/2 Ml Inj IV 50 mcg Q10MIN PRN Administration ANALGESIA Heparin Sodium (Porcine) 2,000 unit 02/11/21 09:38 02/21/21 21:25 Heparin 10,000 Units/10 Ml Vial IV 2,000 unit SAGRARIO PRN Administration hemodialysis Heparin Sodium (Porcine) 5,000 unit 02/19/21 14:00 03/04/21 05:31 Heparin 5,000 Unit/1 Ml Vial SUB-Q 5,000 unit Q8HR CECE Administration Fentanyl Citrate 2,000 mcg in 100 mls @ 6.124 mls/hr 01/22/21 23:00 03/04/21 05:05 Fentanyl Drip Premix IV 2 mcg/kg/hr TITR CECE 12.247 mls/hr Administration Protocol 1 MCG/KG/HR Propofol 1,000 mg in 100 mls @ 3.674 mls/hr 01/22/21 23:45 02/21/21 08:30 Diprivan 10 Mg/Ml IV 0 mcg/kg/min TITR CECE 0 mls/hr Titration Protocol 5 MCG/KG/MIN Norepinephrine 4 mg in 250 mls @ 7.5 mls/hr 01/28/21 14:00 02/22/21 18:27 Levophed Drip 4 Mg/Ns 250 Ml IV 0 mcg/min TITR CECE 0 mls/hr Titration Protocol 2 MCG/MIN Dexmedetomidine HCl 1,000 mcg/ 260 mls @ 6.368 mls/hr 01/30/21 20:00 03/04/21 05:48 Sodium Chloride IV 0.9 mcg/kg/hr TITRATE CECE 28.658 mls/hr Administration Protocol 0.2 MCG/KG/HR Sodium Chloride 100 mls @ 999 mls/hr 02/27/21 11:00 Nacl 0.9% IV SAGRARIO PRN Hypotension Lansoprazole 30 mg 02/18/21 10:00 03/04/21 09:33 Lansoprazole 30 Mg Solutab FEEDTUBE 30 mg QDAY CECE Administration Neomycin/Polymyxin/Bacitracin 1 applic 03/02/21 15:00 03/04/21 09:33 Neomy 3.5 Mg/Bacit 400 Units/Poly B 5000 Units/Gm Oint Packet TP 1 applic TID CECE Administration Senna/Docusate Sodium 1 tab 02/25/21 10:00 03/04/21 09:33 Sennosides/Docusate Sodium 8.6/50 Mg Tab PO 1 tab BID CECE Administration Simple Syrup 15 ml 01/26/21 14:25 02/21/21 21:24 Simple Syrup 15 Ml FEEDTUBE 15 ml PRN PRN Administration Hypoglycemia Simple Syrup 30 ml 01/26/21 14:25 Simple Syrup 15 Ml FEEDTUBE PRN PRN Hypoglycemia Sodium Bicarbonate 325 mg 01/26/21 14:25 Sodium Bicarbonate 325 Mg Tab FEEDTUBE PRN PRN For Clogged Feeding Tube
--- NOTE | 2021-03-04 12:51 | Progress Note ---
Assessment and Plan Cultures: Blood culture 02/08/2021 no growth today SARS CoV2 PCR positive 01/22/2021 respiratory culture: Usual respiratory dillon Blood Culture 01/30/2021 no growth today Urine culture 01/30/2021 no growth today Sputum culture 01/30/2021 usual respiratory dillon Blood culture 02/04/2021 coag negative staph 2 of 4 Urine culture 02/04/2021 no growth Sputum culture 02/04/2021 Maegan albicans 03/02/2021 COVID-19 PCR: Positive Assessment: 60 year old male with history of morbid obesity admitted on 01/22/2021 secondary to 3-day history of worsening shortness of breath associated with fever, chills, loss of smell and taste: #Severe sepsis with septic shock: resolved, off pressors. #Coag-neg Staph bacteremia: new blood culture on 02/04/2021 with GPC 2 of 4 bottles, possible real. Completed treatment 7 days of vancomycin. #Critical COVID-19 pneumonia: Patient remains intubated. Chest x-ray with bilateral airspace disease. Completed remdesivir, steroids, empiric abx course. #Acute respiratory failure: Remains on the vent. #Acute renal failure: requiring hemodialysis. Recommendations: -Patient's original COVID-19 diagnosis was on 01/23/2021. He is not considered infectious from a COVID-19 standpoint. Do not retest for 90 days from initial diagnosis, persistent test positivity likely reflects nonviable virus/viral remnants Please call with questions. Melida Byrne MD, FACP [facility] ([facility] O: [phone] F: [phone] Subjective Date of service: 03/04/21 Principal diagnosis: DEISI Interval history: Afebrile. Has remained on the vent, opens eyes but is encephalopathic. ID was reconsulted due to positive COVID-19 PCR test which was done prior to a planned permacath insertion. Objective - Exam Narrative Exam: Physical Exam Constitutional: Eyes open but unresponsive, intubated, on the vent Head, Ears, Nose: Normocephalic, atraumatic. External ears, nose normal Eyes: Conjunctivae/corneas clear. No icterus. No ptosis. Neck: intubated Oral: intubated Cardiovascular: S1, S2 + Respiratory: AE fair bilaterally and equal GI: Soft, bowel sounds + Musculoskeletal: No pedal edema, no cyanosis. Skin: No rash or abscess Hem/Lymphatic: No palpable cervical or supraclavicular nodes. No lymphangitis Psych: no agitation Neurological: Opens eyes but does not follow any commands, intubated, on the vent, exam limited - Constitutional Vitals: Vital Signs Temp Pulse Resp BP Pulse Ox 98.4 F 105 H 34 H 112/73 95 03/04/21 12:00 03/04/21 12:30 03/04/21 12:30 03/04/21 12:30 03/04/21 12:30 Temperature -Last 24 Hours Temperature 98.4 F Temperature 98.6 F Temperature 99.9 F Temperature 99.8 F Temperature 98.9 F Temperature 97.9 F Temperature 99.1 F Temperature 99 F Temperature 99.4 F Temperature 99.2 F Temperature 99 F Temperature 99.1 F - Labs CBC & Chem 7: 03/04/21 Unknown 03/04/21 Unknown Labs: Abnormal lab results 02/17/21 03/02/21 03/03/21 Range/Units 07:45 08:35 17:16 WBC (4.5-11.0) K/mm3 RBC (3.65-5.03) M/mm3 Hgb (11.8-15.2) gm/dl Hct (35.5-45.6) % RDW (13.2-15.2) % ABG pH (7.320-7.450) POC ABG pCO2 (32.0-48.0) mmHg POC ABG pO2 (83-108) mmHg ABG Hemoglobin (12.0-17.5) ABG Glucose (65-95) mg/dL BUN (9-20) mg/dL Creatinine (0.8-1.3) mg/dL Glucose (75-100) mg/dL POC Glucose 109 H (70-105) mg/dL Calcium (8.4-10.2) mg/dL Arterial Blood Glucose (65-95) mg/dL Coronavirus (PCR) Positive A (Negative) Crossmatch See Detail 03/03/21 03/03/21 03/04/21 Range/Units 23:34 Unknown 03:28 WBC (4.5-11.0) K/mm3 RBC (3.65-5.03) M/mm3 Hgb (11.8-15.2) gm/dl Hct (35.5-45.6) % RDW (13.2-15.2) % ABG pH 7.285 L (7.320-7.450) POC ABG pCO2 62.0 H (32.0-48.0) mmHg POC ABG pO2 80.9 L (83-108) mmHg ABG Hemoglobin 8.3 L (12.0-17.5) ABG Glucose 144 H (65-95) mg/dL BUN (9-20) mg/dL Creatinine (0.8-1.3) mg/dL Glucose (75-100) mg/dL POC Glucose 135 H (70-105) mg/dL Calcium (8.4-10.2) mg/dL Arterial Blood Glucose 144 H (65-95) mg/dL Coronavirus (PCR) (Negative) Crossmatch See Detail 03/04/21 03/04/21 03/04/21 Range/Units 05:39 11:47 Unknown WBC (4.5-11.0) K/mm3 RBC (3.65-5.03) M/mm3 Hgb (11.8-15.2) gm/dl Hct (35.5-45.6) % RDW (13.2-15.2) % ABG pH (7.320-7.450) POC ABG pCO2 (32.0-48.0) mmHg POC ABG pO2 (83-108) mmHg ABG Hemoglobin (12.0-17.5) ABG Glucose (65-95) mg/dL BUN 78 H (9-20) mg/dL Creatinine 2.5 H (0.8-1.3) mg/dL Glucose 131 H (75-100) mg/dL POC Glucose 123 H 125 H (70-105) mg/dL Calcium 8.2 L (8.4-10.2) mg/dL Arterial Blood Glucose (65-95) mg/dL Coronavirus (PCR) (Negative) Crossmatch 03/04/21 Range/Units Unknown WBC 13.9 H (4.5-11.0) K/mm3 RBC 2.58 L (3.65-5.03) M/mm3 Hgb 7.7 L (11.8-15.2) gm/dl Hct 24.0 L (35.5-45.6) % RDW 20.3 H (13.2-15.2) % ABG pH (7.320-7.450) POC ABG pCO2 (32.0-48.0) mmHg POC ABG pO2 (83-108) mmHg ABG Hemoglobin (12.0-17.5) ABG Glucose (65-95) mg/dL BUN (9-20) mg/dL Creatinine (0.8-1.3) mg/dL Glucose (75-100) mg/dL POC Glucose (70-105) mg/dL Calcium (8.4-10.2) mg/dL Arterial Blood Glucose (65-95) mg/dL Coronavirus (PCR) (Negative) Crossmatch
[2021-03-04 16:19] LABS: ABG PH 7.285 pH Units (7.350-7.450)
[2021-03-04 16:20] LABS: ABG Base Excess 1.6 mmol/L (-2.0-3.0); ABG HCO3 28.8 mmol/L (20.0-26.0); ABG Methemoglobin 0.1 % (0.0-1.5); ABG Oxygen Saturation 95.4 % (95.0-99.0); ABG PO2 80.9 mm Hg (80.0-90.0)
--- NOTE | 2021-03-04 17:02 | Progress Note ---
Subjective Date of service: 03/04/21 Principal diagnosis: DEISI Interval history: 60 year old male with multiple medical issues including COVID 19 who needs permcath placement. COVID 19 non infectious by ID standpoint. Plan for permcath on Tuesday. Objective - Constitutional Vitals: Vital Signs - 12hr 03/04/21 03/04/21 03/04/21 05:15 05:30 05:45 Temperature Pulse Rate 111 H 109 H 106 H Respiratory 31 H 31 H 31 H Rate Blood Pressure 99/52 124/63 119/65 O2 Sat by Pulse 96 87 97 Oximetry 03/04/21 03/04/21 03/04/21 06:00 06:15 06:30 Temperature Pulse Rate 104 H 102 H 103 H Respiratory 32 H 36 H 36 H Rate Blood Pressure 121/68 110/62 114/67 O2 Sat by Pulse 97 97 97 Oximetry 03/04/21 03/04/21 03/04/21 06:45 07:00 07:15 Temperature Pulse Rate 106 H 104 H 103 H Respiratory 35 H 34 H 35 H Rate Blood Pressure 123/66 116/65 113/62 O2 Sat by Pulse 97 96 97 Oximetry 03/04/21 03/04/21 03/04/21 07:30 07:34 07:45 Temperature Pulse Rate 102 H 103 H 101 H Respiratory 34 H 39 H Rate Blood Pressure 108/61 108/61 107/64 O2 Sat by Pulse 97 100 99 Oximetry 03/04/21 03/04/21 03/04/21 08:00 08:15 08:30 Temperature 98.6 F Pulse Rate 102 H 102 H 103 H Respiratory 34 H 34 H 35 H Rate Blood Pressure 107/60 107/63 114/63 O2 Sat by Pulse 98 98 98 Oximetry 03/04/21 03/04/21 03/04/21 08:45 09:00 09:15 Temperature Pulse Rate 101 H 103 H 102 H Respiratory 33 H 27 H 21 Rate Blood Pressure 109/62 130/72 121/64 O2 Sat by Pulse 96 86 97 Oximetry 03/04/21 03/04/21 03/04/21 09:30 09:45 10:00 Temperature Pulse Rate 103 H 103 H 103 H Respiratory 34 H 33 H 35 H Rate Blood Pressure 123/70 133/77 135/79 O2 Sat by Pulse 97 98 96 Oximetry 03/04/21 03/04/21 03/04/21 10:15 10:30 10:45 Temperature Pulse Rate 103 H 104 H 103 H Respiratory 35 H 35 H 34 H Rate Blood Pressure 127/76 123/72 120/71 O2 Sat by Pulse 96 95 95 Oximetry 03/04/21 03/04/21 03/04/21 11:00 11:15 11:30 Temperature Pulse Rate 103 H 104 H 104 H Respiratory 33 H 33 H 35 H Rate Blood Pressure 120/67 128/74 130/77 O2 Sat by Pulse 95 95 95 Oximetry 03/04/21 03/04/21 03/04/21 11:45 12:00 12:15 Temperature 98.4 F Pulse Rate 103 H 105 H 103 H Respiratory 36 H 33 H 34 H Rate Blood Pressure 125/70 132/74 114/70 O2 Sat by Pulse 95 94 95 Oximetry 03/04/21 03/04/21 12:30 15:16 Temperature Pulse Rate 105 H 110 H Respiratory 34 H Rate Blood Pressure 112/73 136/78 O2 Sat by Pulse 95 96 Oximetry - Labs CBC & Chem 7: 03/04/21 Unknown 03/04/21 Unknown Labs: Abnormal lab results 03/03/21 03/03/21 03/03/21 Range/Units 17:16 23:34 Unknown WBC (4.5-11.0) K/mm3 RBC (3.65-5.03) M/mm3 Hgb (11.8-15.2) gm/dl Hct (35.5-45.6) % RDW (13.2-15.2) % ABG pH (7.350-7.450) pH Units POC ABG pCO2 (32.0-48.0) mmHg POC ABG pO2 (83-108) mmHg ABG HCO3 (20.0-26.0) mmol/L ABG Hemoglobin (14.0-18.0) gm/dl ABG Glucose (65-95) mg/dL Oxyhemoglobin (95.0-99.0) % BUN (9-20) mg/dL Creatinine (0.8-1.3) mg/dL Glucose (75-100) mg/dL POC Glucose 109 H 135 H (70-105) mg/dL Calcium (8.4-10.2) mg/dL Arterial Blood Glucose (65-95) mg/dL Crossmatch See Detail 03/04/21 03/04/21 03/04/21 Range/Units 03:15 03:28 05:39 WBC (4.5-11.0) K/mm3 RBC (3.65-5.03) M/mm3 Hgb (11.8-15.2) gm/dl Hct (35.5-45.6) % RDW (13.2-15.2) % ABG pH 7.285 L 7.285 L (7.350-7.450) pH Units POC ABG pCO2 62.0 H (32.0-48.0) mmHg POC ABG pO2 80.9 L (83-108) mmHg ABG HCO3 28.8 H (20.0-26.0) mmol/L ABG Hemoglobin 8.3 L 8.3 L (14.0-18.0) gm/dl ABG Glucose 144 H (65-95) mg/dL Oxyhemoglobin 93.4 L (95.0-99.0) % BUN (9-20) mg/dL Creatinine (0.8-1.3) mg/dL Glucose (75-100) mg/dL POC Glucose 123 H (70-105) mg/dL Calcium (8.4-10.2) mg/dL Arterial Blood Glucose 144 H (65-95) mg/dL Crossmatch 03/04/21 03/04/21 03/04/21 Range/Units 11:47 Unknown Unknown WBC 13.9 H (4.5-11.0) K/mm3 RBC 2.58 L (3.65-5.03) M/mm3 Hgb 7.7 L (11.8-15.2) gm/dl Hct 24.0 L (35.5-45.6) % RDW 20.3 H (13.2-15.2) % ABG pH (7.350-7.450) pH Units POC ABG pCO2 (32.0-48.0) mmHg POC ABG pO2 (83-108) mmHg ABG HCO3 (20.0-26.0) mmol/L ABG Hemoglobin (14.0-18.0) gm/dl ABG Glucose (65-95) mg/dL Oxyhemoglobin (95.0-99.0) % BUN 78 H (9-20) mg/dL Creatinine 2.5 H (0.8-1.3) mg/dL Glucose 131 H (75-100) mg/dL POC Glucose 125 H (70-105) mg/dL Calcium 8.2 L (8.4-10.2) mg/dL Arterial Blood Glucose (65-95) mg/dL Crossmatch Medications & Allergies - Medications Allergies/Adverse Reactions: Allergies No Known Allergies Allergy (Unverified 03/12/20 13:41) Home Medications: Home Medications Medication Instructions Recorded Confirmed Last Taken Type Insulin NPH/Regular [Novolin 70/30] 18 unit SUB-Q TIDAC #1 vial 03/12/20 03/02/21 Unknown Rx Syringe-Needle,Insulin,0.5 ml 1 box MC TID #1 box 03/12/20 03/02/21 Unknown Rx [Insulin Syringe/Needle 0.5 ML] Active Medications: Generic Name Dose Route Start Last Admin Trade Name Freq PRN Reason Stop Dose Admin Acetaminophen 650 mg 01/24/21 12:58 02/25/21 13:31 Acetaminophen 325 Mg/10.15 Ml Oral Liqd Unit Dose FEEDTUBE 650 mg Q6H PRN Administration Pain, Mild (1-3) Lipase/Protease/Amylase 1 each 01/26/21 14:25 Lipase 10,500/Protease 25,000/Amylase 43,750 (Units) Dr Cap FEEDTUBE PRN PRN For Clogged Feeding Tube Dextrose 50 ml 01/27/21 07:24 Dextrose 50% In Water (25gm) 50 Ml Syringe IV Q30MIN PRN Hypoglycemia Protocol Fentanyl 50 mcg 01/22/21 22:39 02/25/21 10:25 Fentanyl 100 Mcg/2 Ml Inj IV 50 mcg Q10MIN PRN Administration ANALGESIA Heparin Sodium (Porcine) 2,000 unit 02/11/21 09:38 02/21/21 21:25 Heparin 10,000 Units/10 Ml Vial IV 2,000 unit SAGRARIO PRN Administration hemodialysis Heparin Sodium (Porcine) 5,000 unit 02/19/21 14:00 03/04/21 05:31 Heparin 5,000 Unit/1 Ml Vial SUB-Q 5,000 unit Q8HR CECE Administration Fentanyl Citrate 2,000 mcg in 100 mls @ 6.124 mls/hr 01/22/21 23:00 03/04/21 05:05 Fentanyl Drip Premix IV 2 mcg/kg/hr TITR CECE 12.247 mls/hr Administration Protocol 1 MCG/KG/HR Propofol 1,000 mg in 100 mls @ 3.674 mls/hr 01/22/21 23:45 02/21/21 08:30 Diprivan 10 Mg/Ml IV 0 mcg/kg/min TITR CECE 0 mls/hr Titration Protocol 5 MCG/KG/MIN Norepinephrine 4 mg in 250 mls @ 7.5 mls/hr 01/28/21 14:00 02/22/21 18:27 Levophed Drip 4 Mg/Ns 250 Ml IV 0 mcg/min TITR CECE 0 mls/hr Titration Protocol 2 MCG/MIN Dexmedetomidine HCl 1,000 mcg/ 260 mls @ 6.368 mls/hr 01/30/21 20:00 03/04/21 05:48 Sodium Chloride IV 0.9 mcg/kg/hr TITRATE CECE 28.658 mls/hr Administration Protocol 0.2 MCG/KG/HR Sodium Chloride 100 mls @ 999 mls/hr 02/27/21 11:00 Nacl 0.9% IV SAGRARIO PRN Hypotension Lansoprazole 30 mg 02/18/21 10:00 03/04/21 09:33 Lansoprazole 30 Mg Solutab FEEDTUBE 30 mg QDAY CECE Administration Neomycin/Polymyxin/Bacitracin 1 applic 03/02/21 15:00 03/04/21 09:33 Neomy 3.5 Mg/Bacit 400 Units/Poly B 5000 Units/Gm Oint Packet TP 1 applic TID CECE Administration Senna/Docusate Sodium 1 tab 02/25/21 10:00 03/04/21 09:33 Sennosides/Docusate Sodium 8.6/50 Mg Tab PO 1 tab BID CECE Administration Simple Syrup 15 ml 01/26/21 14:25 02/21/21 21:24 Simple Syrup 15 Ml FEEDTUBE 15 ml PRN PRN Administration Hypoglycemia Simple Syrup 30 ml 01/26/21 14:25 Simple Syrup 15 Ml FEEDTUBE PRN PRN Hypoglycemia Sodium Bicarbonate 325 mg 01/26/21 14:25 Sodium Bicarbonate 325 Mg Tab FEEDTUBE PRN PRN For Clogged Feeding Tube HEART Score - HEART Score Risk factors: 1-2 risk factors Troponin: < normal limit - Critical Actions Critical Actions: 0-3 pts:0.9-1.7%risk of adverse cardiac event.Candidate for discharge
[2021-03-05] MEDS: dexmedeTOMIDine 1,000 MCG in SODIUM CHLORIDE 0.9% 250ML 250 ML IV SCH ×4 (02:15→20:58)
[2021-03-05] MEDS: HEPARIN 5,000 UNIT/1 ML VIAL SUB-Q SCH ×3 (05:33→22:08)
[2021-03-05] MEDS: fentaNYL DRIP Premix 2,000 MCG/100 ML BAG IV SCH ×3 (09:09→20:58)
[2021-03-05] MEDS: NEOMY 3.5 MG/BACIT 400 UNITS/POLY B 5000 UNITS/GM OINT PACKET TP SCH ×3 (09:10→20:31)
[2021-03-05] MEDS: SENNOSIDES/DOCUSATE SODIUM 8.6/50 MG TAB PO SCH ×2 (09:11→22:10)
[2021-03-05] MEDS: LANSOPRAZOLE 30 MG SOLUTAB FEEDTUBE SCH (09:11)
--- NOTE | 2021-03-05 11:19 | Progress Note ---
Assessment and Plan Acute Hypoxic respiratory failure COVID-19 PNA Severe sepsis with septic shock Acute kidney injury secondary to ATN Hyperkalemia Hypernatremia DM2 on insulin Anemia Plan: no indication for HD tofday Initiated on HD on 02/03/21 will hold on permcath for now, 24 hours creatinine cleraance is pending, if will cont to require HD, will plan permcath Tuesday Strict I&O's monitoring Renally dose medications Assess dialysis needs daily Monitor for renal recovery Subjective Date of service: 03/05/21 Principal diagnosis: DEISI Interval history: on the vent Objective - Vital Signs Vital signs: Vital Signs - 12hr 03/04/21 03/04/21 03/04/21 23:30 23:45 23:50 Temperature Pulse Rate 115 H 117 H 116 H Respiratory 39 H 37 H Rate Blood Pressure 110/60 113/62 113/62 O2 Sat by Pulse 92 95 Oximetry 03/05/21 03/05/21 03/05/21 00:00 00:15 00:30 Temperature 99.9 F H Pulse Rate 115 H 117 H 116 H Respiratory 37 H 37 H 37 H Rate Blood Pressure 113/62 111/65 117/67 O2 Sat by Pulse 94 93 93 Oximetry 03/05/21 03/05/21 03/05/21 00:45 01:00 01:15 Temperature Pulse Rate 114 H 115 H 116 H Respiratory 40 H 35 H 35 H Rate Blood Pressure 105/60 116/68 118/65 O2 Sat by Pulse 94 91 Oximetry 03/05/21 03/05/21 03/05/21 01:30 01:45 02:00 Temperature Pulse Rate 119 H 118 H 119 H Respiratory 36 H 36 H 36 H Rate Blood Pressure 120/65 125/68 104/57 O2 Sat by Pulse 92 91 94 Oximetry 03/05/21 03/05/21 03/05/21 02:15 02:30 02:45 Temperature Pulse Rate 118 H 118 H 118 H Respiratory 34 H 37 H 37 H Rate Blood Pressure 111/64 120/64 116/60 O2 Sat by Pulse 97 92 93 Oximetry 03/05/21 03/05/21 03/05/21 03:00 03:15 03:30 Temperature Pulse Rate 118 H 117 H 118 H Respiratory 38 H 37 H 38 H Rate Blood Pressure 119/68 100/61 110/62 O2 Sat by Pulse 95 94 94 Oximetry 03/05/21 03/05/21 03/05/21 03:45 04:00 04:02 Temperature Pulse Rate 120 H 118 H 117 H Respiratory 33 H 37 H Rate Blood Pressure 107/64 107/64 111/59 O2 Sat by Pulse 95 93 95 Oximetry 03/05/21 03/05/21 03/05/21 04:15 04:30 04:45 Temperature Pulse Rate 117 H 117 H 117 H Respiratory 38 H 38 H 38 H Rate Blood Pressure 101/66 100/58 101/63 O2 Sat by Pulse 94 91 94 Oximetry 03/05/21 03/05/21 03/05/21 05:00 05:15 05:30 Temperature Pulse Rate 120 H 115 H 117 H Respiratory 13 34 H 27 H Rate Blood Pressure 98/52 101/60 119/67 O2 Sat by Pulse 99 96 Oximetry 03/05/21 03/05/21 03/05/21 05:45 06:00 06:15 Temperature Pulse Rate 121 H 119 H 119 H Respiratory 38 H 29 H 40 H Rate Blood Pressure 120/64 110/72 110/64 O2 Sat by Pulse 93 93 94 Oximetry 03/05/21 03/05/21 03/05/21 06:30 06:45 07:00 Temperature 100.2 F H Pulse Rate 120 H 121 H 121 H Respiratory 37 H 38 H 38 H Rate Blood Pressure 113/61 108/62 108/61 O2 Sat by Pulse 93 Oximetry 03/05/21 03/05/21 03/05/21 07:15 07:30 07:43 Temperature Pulse Rate 122 H 121 H 117 H Respiratory 38 H 38 H Rate Blood Pressure 106/60 106/58 106/58 O2 Sat by Pulse 91 94 Oximetry 03/05/21 03/05/21 03/05/21 07:45 08:00 08:15 Temperature Pulse Rate 120 H 116 H 117 H Respiratory 35 H 35 H 38 H Rate Blood Pressure 113/62 107/65 101/53 O2 Sat by Pulse 94 92 Oximetry 03/05/21 03/05/21 03/05/21 08:30 08:45 09:00 Temperature Pulse Rate 113 H 115 H 112 H Respiratory 35 H 33 H 34 H Rate Blood Pressure 107/59 107/68 96/55 O2 Sat by Pulse 96 Oximetry - Lab 03/04/21 Unknown 03/05/21 09:00 Most recent lab results ABG pH 7.160 (7.320-7.450) L 03/05/21 04:18 ABG pCO2 62.0 mm Hg 03/04/21 03:15 ABG pO2 80.9 mm Hg (80.0-90.0) 03/04/21 03:15 ABG HCO3 28.8 mmol/L (20.0-26.0) H 03/04/21 03:15 ABG O2 Saturation 83.8 (0-100) 03/05/21 04:18 Calcium 8.0 mg/dL (8.4-10.2) L 03/05/21 09:00 Phosphorus 7.90 mg/dL (2.5-4.5) H 02/21/21 16:35 Magnesium 2.60 mg/dL (1.7-2.3) H 02/21/21 16:35 Urine Creatinine 53.0 mg/dL (0.1-20.0) H 01/30/21 12:00 Urine Sodium 28 mmol/L 01/22/21 22:39 Medications & Allergies - Medications Allergies/Adverse Reactions: Allergies No Known Allergies Allergy (Unverified 03/12/20 13:41) Home Medications: Home Medications Medication Instructions Recorded Confirmed Last Taken Type Insulin NPH/Regular [Novolin 70/30] 18 unit SUB-Q TIDAC #1 vial 03/12/20 03/02/21 Unknown Rx Syringe-Needle,Insulin,0.5 ml 1 box MC TID #1 box 03/12/20 03/02/21 Unknown Rx [Insulin Syringe/Needle 0.5 ML] Active Medications: Generic Name Dose Route Start Last Admin Trade Name Freq PRN Reason Stop Dose Admin Acetaminophen 650 mg 01/24/21 12:58 02/25/21 13:31 Acetaminophen 325 Mg/10.15 Ml Oral Liqd Unit Dose FEEDTUBE 650 mg Q6H PRN Administration Pain, Mild (1-3) Lipase/Protease/Amylase 1 each 01/26/21 14:25 Lipase 10,500/Protease 25,000/Amylase 43,750 (Units) Dr Cap FEEDTUBE PRN PRN For Clogged Feeding Tube Dextrose 50 ml 01/27/21 07:24 Dextrose 50% In Water (25gm) 50 Ml Syringe IV Q30MIN PRN Hypoglycemia Protocol Fentanyl 50 mcg 01/22/21 22:39 02/25/21 10:25 Fentanyl 100 Mcg/2 Ml Inj IV 50 mcg Q10MIN PRN Administration ANALGESIA Heparin Sodium (Porcine) 2,000 unit 02/11/21 09:38 02/21/21 21:25 Heparin 10,000 Units/10 Ml Vial IV 2,000 unit SAGRARIO PRN Administration hemodialysis Heparin Sodium (Porcine) 5,000 unit 02/19/21 14:00 03/05/21 05:33 Heparin 5,000 Unit/1 Ml Vial SUB-Q 5,000 unit Q8HR CECE Administration Fentanyl Citrate 2,000 mcg in 100 mls @ 6.124 mls/hr 01/22/21 23:00 03/05/21 09:09 Fentanyl Drip Premix IV 2 mcg/kg/hr TITR CECE 12.247 mls/hr Administration Protocol 1 MCG/KG/HR Propofol 1,000 mg in 100 mls @ 3.674 mls/hr 01/22/21 23:45 02/21/21 08:30 Diprivan 10 Mg/Ml IV 0 mcg/kg/min TITR CECE 0 mls/hr Titration Protocol 5 MCG/KG/MIN Norepinephrine 4 mg in 250 mls @ 7.5 mls/hr 01/28/21 14:00 02/22/21 18:27 Levophed Drip 4 Mg/Ns 250 Ml IV 0 mcg/min TITR CECE 0 mls/hr Titration Protocol 2 MCG/MIN Dexmedetomidine HCl 1,000 mcg/ 260 mls @ 6.368 mls/hr 01/30/21 20:00 03/05/21 05:38 Sodium Chloride IV 0.9 mcg/kg/hr TITRATE CECE 28.658 mls/hr Administration Protocol 0.2 MCG/KG/HR Sodium Chloride 100 mls @ 999 mls/hr 02/27/21 11:00 Nacl 0.9% IV SAGRARIO PRN Hypotension Lansoprazole 30 mg 02/18/21 10:00 03/05/21 09:11 Lansoprazole 30 Mg Solutab FEEDTUBE 30 mg QDAY CECE Administration Neomycin/Polymyxin/Bacitracin 1 applic 03/02/21 15:00 03/05/21 09:10 Neomy 3.5 Mg/Bacit 400 Units/Poly B 5000 Units/Gm Oint Packet TP 1 applic TID CECE Administration Senna/Docusate Sodium 1 tab 02/25/21 10:00 03/05/21 09:11 Sennosides/Docusate Sodium 8.6/50 Mg Tab PO 1 tab BID CECE Administration Simple Syrup 15 ml 01/26/21 14:25 02/21/21 21:24 Simple Syrup 15 Ml FEEDTUBE 15 ml PRN PRN Administration Hypoglycemia Simple Syrup 30 ml 01/26/21 14:25 Simple Syrup 15 Ml FEEDTUBE PRN PRN Hypoglycemia Sodium Bicarbonate 325 mg 01/26/21 14:25 Sodium Bicarbonate 325 Mg Tab FEEDTUBE PRN PRN For Clogged Feeding Tube
--- NOTE | 2021-03-05 11:36 | Progress Note ---
Assessment and Plan Cultures: Blood culture 02/08/2021 no growth today SARS CoV2 PCR positive 01/22/2021 respiratory culture: Usual respiratory dillon Blood Culture 01/30/2021 no growth today Urine culture 01/30/2021 no growth today Sputum culture 01/30/2021 usual respiratory dillon Blood culture 02/04/2021 coag negative staph 2 of 4 Urine culture 02/04/2021 no growth Sputum culture 02/04/2021 Maegan albicans 03/02/2021 COVID-19 PCR: Positive Assessment: 60 year old male with history of morbid obesity admitted on 01/22/2021 secondary to 3-day history of worsening shortness of breath associated with fever, chills, loss of smell and taste: #Severe sepsis with septic shock: resolved, off pressors. #Coag-neg Staph bacteremia: new blood culture on 02/04/2021 with GPC 2 of 4 bottles, possible real. Completed treatment 7 days of vancomycin. #Critical COVID-19 pneumonia: Patient remains intubated. Chest x-ray with bilateral airspace disease. Completed remdesivir, steroids, empiric abx course. #Acute respiratory failure: Remains on the vent. #Acute renal failure: was on hemodialysis, creatinine gradually improving. Recommendations: -Patient's original COVID-19 diagnosis was on 01/23/2021. He is not considered infectious from a COVID-19 standpoint. Do not retest for 90 days from initial diagnosis, persistent test positivity likely reflects nonviable virus/viral remnants -low grade fevers, multifactorial. Monitor for now Melida Byrne MD, FACP [facility] O: [phone] F: [phone] Subjective Date of service: 03/05/21 Principal diagnosis: DEISI Interval history: Low grade fever. Remains on the vent. Objective - Exam Narrative Exam: Physical Exam Constitutional: Eyes open but unresponsive, intubated, on the vent Head, Ears, Nose: Normocephalic, atraumatic. External ears, nose normal Eyes: Conjunctivae/corneas clear. No icterus. No ptosis. Neck: intubated Oral: intubated Cardiovascular: S1, S2 + Respiratory: AE fair bilaterally and equal GI: Soft, bowel sounds + Musculoskeletal: No pedal edema, no cyanosis. Skin: No rash or abscess Hem/Lymphatic: No palpable cervical or supraclavicular nodes. No lymphangitis Psych: no agitation Neurological: Opens eyes but does not follow any commands, intubated, on the vent, exam limited - Constitutional Vitals: Vital Signs Temp Pulse Resp BP Pulse Ox 100.2 F H 111 H 34 H 103/62 95 03/05/21 07:00 03/05/21 11:17 03/05/21 09:00 03/05/21 11:17 03/05/21 11:17 Temperature -Last 24 Hours Temperature 100.2 F Temperature 99.9 F Temperature 100.7 F Temperature 98.8 F Temperature 98.4 F - Labs CBC & Chem 7: 03/04/21 Unknown 03/05/21 09:00 Labs: Abnormal lab results 03/03/21 03/04/21 03/04/21 Range/Units Unknown 03:15 11:47 ABG pH 7.285 L (7.350-7.450) pH Units POC ABG pCO2 (32.0-48.0) mmHg POC ABG pO2 (83-108) mmHg ABG HCO3 28.8 H (20.0-26.0) mmol/L ABG Hemoglobin 8.3 L (14.0-18.0) gm/dl ABG Oxyhemoglobin (94-98) ABG Chloride (98-107) mmol/L ABG Glucose (65-95) mg/dL Oxyhemoglobin 93.4 L (95.0-99.0) % Carboxyhemoglobin (0.5-1.5) BUN (9-20) mg/dL Creatinine (0.8-1.3) mg/dL Glucose (75-100) mg/dL POC Glucose 125 H (70-105) mg/dL Calcium (8.4-10.2) mg/dL Arterial Blood Glucose (65-95) mg/dL Crossmatch See Detail 03/04/21 03/05/21 03/05/21 Range/Units 16:49 00:31 04:18 ABG pH 7.160 L (7.350-7.450) pH Units POC ABG pCO2 86.3 H (32.0-48.0) mmHg POC ABG pO2 55.9 L (83-108) mmHg ABG HCO3 (20.0-26.0) mmol/L ABG Hemoglobin 8.3 L (14.0-18.0) gm/dl ABG Oxyhemoglobin 82.1 L (94-98) ABG Chloride 108.0 H (98-107) mmol/L ABG Glucose 149 H (65-95) mg/dL Oxyhemoglobin (95.0-99.0) % Carboxyhemoglobin 1.7 H (0.5-1.5) BUN (9-20) mg/dL Creatinine (0.8-1.3) mg/dL Glucose (75-100) mg/dL POC Glucose 120 H 129 H (70-105) mg/dL Calcium (8.4-10.2) mg/dL Arterial Blood Glucose 149 H (65-95) mg/dL Crossmatch 03/05/21 03/05/21 03/05/21 Range/Units 05:30 09:00 11:31 ABG pH (7.350-7.450) pH Units POC ABG pCO2 (32.0-48.0) mmHg POC ABG pO2 (83-108) mmHg ABG HCO3 (20.0-26.0) mmol/L ABG Hemoglobin (14.0-18.0) gm/dl ABG Oxyhemoglobin (94-98) ABG Chloride (98-107) mmol/L ABG Glucose (65-95) mg/dL Oxyhemoglobin (95.0-99.0) % Carboxyhemoglobin (0.5-1.5) BUN 84 H (9-20) mg/dL Creatinine 2.3 H (0.8-1.3) mg/dL Glucose 143 H (75-100) mg/dL POC Glucose 133 H 133 H (70-105) mg/dL Calcium 8.0 L (8.4-10.2) mg/dL Arterial Blood Glucose (65-95) mg/dL Crossmatch
--- NOTE | 2021-03-05 11:44 | Progress Note ---
Assessment and Plan 60 y/o male with ARDS secondary most likely to COVID 19 pneumonia. 03/05/21: Increase RR to 40 as patient is on Assist Control/PC. This was changed back on 02/25. Will speak with RT as to why. Will also give 1 bottle of Mag Citrate today. Guarded prognosis. 03/04/21: Wean FiO2 for sats >88%. Will call family on tomorrow to give further updates and prep them for the possibility of the patient having to come home, maybe even on the vent. 03/03/21: Continue to wean FiO2 as tolerated. Would wean this first before weaning PEEP any further. Sedation only as needed but if placed back on continuous sedation, needs to have a holiday (break) every day. HD per renal. Transfusing 1 unit of PRBC's tomorrow. Unfortunately, mental status is going to be a large barrier for this patient. He likely has suffered some oxygen toxicity from prolonged time on high levels of oxygen (greater 60%) for several weeks. Will attempt to have a family meeting regarding further care. Patient is not funded, will need HD correction and likely will require trach for further weaning. Ultimately, if patient is able to leave the hospital, his only option would be to go home unless family could fund a facility on their own. Guarded prognosis remains. 02/23/21: Despite oxygen numbers looking better, now overall concern shifts somewhat towards mental state. Will continue to monitor for the next several days. However he has been on large amounts of oxygen therapy for a long time and could have some damage to his brain from this. Plan is to update the family tomorrow on current clinical state. His prognosis has been poor and now with mental state prognosis is worsening. HD per renal. Continue to wean FiO2 for sats >88% 02/22/21: Overall clinical state continues to waxes and wanes. Back up to 80%. Will call family tomorrow to update. Had HD last night, will likely have HD again on Tuesday. Very very guarded prognosis. Will send Triglyceride level anyway given recent change. 02/21/21: Continue to wean FiO2 for sats >88%. Down to 70 now and tolerating. Diprovan is off, nursing working to wean others as well. Can hold on triglycerides now that diprovan is off. Guarded prognosis. 02/20/21: HD today, goal is 3 liters. Continue sedation, did have to increase Diprovan but this is ok. Will need to check levels soon. BM complete. Continue prophylactic anticoagulation. Guarded prognosis. 02/19/21: HD per renal, likely tomorrow. Continue sedation. Has not had a BM so will give full dose of mag citrate today. STarted prophylactic anticoagulation. Wean FiO2 as tolerated. Will call family tomorrow. 02/18/21: HD per renal. continue sedation to help with oxygenation. Overall prognosis remains very guarded to poor. [facility] has been speaking with family so will defer to them. Currently patient is not a candidate for trach given his oxygen and peep requirements. 02/17/21: Fine with cutting back on HD as not really helped with oxygenation. Continue to wean as tolerated for sats >88% and PaO2 >55. Sedation to achieve negative rass scoring. very very guarded to poor prognosis. 02/16/21: HD now. Wean FiO2 for sats> 88%. Agree with stopping ativan and holding on starting diprovan to see if the patient truly needs it. pH holding off bicarb drip goal is >7.2. Very very guarded to poor prognosis. 02/13/21: HD again now. Replace electrolytes per renal. Continue abx therapy per ID. Will get RT to wean FiO2 as not done on yesterday. Will restart diprovan post HD and stop ativan. Check Levels (Triglycerides on Tue or Tuesday). Can stop bicarb drip however must make sure that ABG is checked daily to make sure that pH is good. Very very guarded prognosis. 02/12/21: HD again today. Had a 12 second run of VTACH today as well. Stable. K is low, checking mag levels. Will alert Renal so they can adjust bath as needed. Post HD will start to wean FiO2 again. Unable to prone as patient does not tolerate. Repeat blood cultures negative and first set only showing Coag Negative Staph. Prognosis still remains very very guarded to poor. Will consider restarting Diprovan tomorrow. Patient now intubated for 20 days now but not candidate for trach yet given elevated PEEP and FiO2 levels but did discuss on rounds. 02/11/21: Vascath placed today for HD. Orders already in. Wean FiO2 for sats >88%. Abx per ID. Repeat cultures so far negative. Given persistent fevers, will check upper ext dopplers. Prognosis still remains guarded. 02/10/21: Triglycerides improved but current sedation is adequate so will hold on stopping ativan to add propofol back. Awaiting Labs from this morning. Plan to replace HD catheter tomorrow morning as early as possible. Fever curve is trending down. Continue bicarb drip for now. Prognosis remains guarded. WIll speak with family tomorrow to update. 02/09/21: Repeat Triglycerides today. Follow up repeat blood cultures. Given continued fever will hold on replacing vascath today. If fever free the next 24 hours, can place in the morning or Tuesday morning. Will likely need blood with next HD session. Continue bicarb drip to help manage respiratory as well as metabolic acidosis. Wean FiO2 for sats >88% and PaO2 >55. Overall prognosis remains guarded to poor. 02/08/21: Picc out today. Will repeat culture if patient spikes again today. Plan to replace HD catheter either late tomorrow or Tuesday morning. Continue current level of sedation. Abx therapy per ID. Wean FiO2 as tolerated, doubt will be able to do much until we can resume HD. Guarded prognosis. Replaced potassium. Will need to check in the morning. Will repeat K later this afternoon. 02/07/21: Biggest issue now is that patient's numbers are better with HD but now with bacteremia, concern for line infection. ID is correct in requesting line holiday. Has a picc and an Right IJ Dialysis catheter with 3 ports. Currently getting HD today. Have not seen renal yet. Will pull right IJ line post HD and plan to replace it Tuesday evening or Tuesday. Continue bicarb drip for now and will keep picc as patient has been requiring levophed. If able to be weaned off levophed, will remove picc either tomorrow or Tuesday. Continue Ativan, Precedex and Fent drips, repeat Triglycerides on Tuesday. Very very guarded prognosis. Will remove Black today as well. 02/06/21: Will add bicarb drip at 125/hr. Giving 2 amps of NaHCO3 push now. Will repeat ABG this afternoon, may just ask for Art Line if possible. HD today per renal and I spoke with them about the bicarb drip. Long discussion with Sister, Significant and other and another family member on the phone on yesterday. I tried my best to explain the severity of the clinical state but not sure if they fully understood. The patient is very very ill and history suggests that his outcome will be poor (intubated with covid and renal failure on dialysis). This was expressed with the family. Will continue all supportive measures. Checking triglyceride levels today. 02/05/21: WIll increase PEEP to 16. Can increase pressors if needed for BP control during HD. Follow up cultures. If negative will scan legs and arms again for VTE. Repeat ABG at 1400 today. Will speak with sister and Girlfriend on phone today. 02/04/21: HD again today per renal notes. Likely will need daily HD. New fevers. Will draw blood and urine cultures if able to still make urine.. Repeat CXR. May need to check dopplers if all of those studies are negative. Wean FIO2 as tolerated. Unable to tolerate proning. Guarded to poor prognosis. 02/03/21: HD today per renal. Wean FiO2 as tolerated. No further proning as patient cannot tolerate it, however with volume removal, may consider in the future. Use pressors to keep MAPs 65 and greater for HD purporses so volume can be removed. (IJ was wide open (filled with blood)) with patient sitting up at 45 degrees. Guarded prognosis. 02/02/21: After renal speaks with family, will place vascath today. Agree with bicarb drip but will order some pushes now to help with pH. Overall prognosis is very very guarded to poor now that patient is COVID positive and requiring renal replacement therapy. Mortality is very high in these patients. Continue steroid therapy. Unable to tolerate proning. 01/30/21: Will plan for proning later today. Goal will be at least 12hrs but long is okay. Speaking with pharmacy to see if we can get paralytic for a longer period of time. Regardless will prone. Continue heavy sedation. BP stable. Continue steroids. Very very guarded prognosis. 01/29/21: will increase tidal volume and/or increase respiratory rate. Repeat ABG this afternoon. Continue paralytic and adequate sedation. Continue steroid and remdesivir, follow up any renal recs. Prognosis remains guarded. Wean Fio2 for sats >88% 01/28/21: Increased PEEP to 16. Will paralyze patient today and increase sedation. Ordering picc line for possible vasopressor therapy needs. Continue BID steroids. Renal function is slightly better today with fluids but could be making oxygenation worse. Not able to diurese. Still making urine. Continue Remdesivir. Watch for fever curve. If not improvement in the next 24 hours with paralyzing, will prone tomorrow morning. 01/27/21: Continue PEEP at 14. No weaning until FiO2 is at or below 40-45%. Continue anticoagulation. Getting Remdesivir now. Continue BID steroids. Renal has increased the fluids. Monitor urine output and renal function. Overall p rognosis is very very guarded, especially if renal status worsens. 01/26/21: Increase PEEP to 14. Will add Precedex therapy. If patient does not respond to increases in PEEP may need to prone. Will place patient on lovenox and will feed patient. Remdesivir coming. Continue BID steroids. Prognosis is guarded. 01/25/21: Hold on proning today. Continue BID steroids. ABG this AM was adequate. Pending abg tomorrow, may increase PEEP if not able to wean FiO2 any further. Per charting Remdesivir to arrive tomorrow. Guarded prognosis. 01/24/21: Continue BID steroids. No abg done this am but able to wean FiO2. Will obtain ABG in the am. Hold on proning for right now. Renal following, would like to diurese but they are given fluids for deisi. Agree with ID assessment and note. Guarded prognosis. 1. Increase steroids to BID given size 2. Check with ID to see if he is a candidate for remdesivir or any other experiemental therapy 3. Hold on proning for right now 4. Renal consulted and giving IVF's currently Guarded prognosis. CCT 31 minutes. Subjective Date of service: 03/05/21 Principal diagnosis: DEISI Interval history: pH is worse today. CO2 is higher. Per renal, evaluating renal function more closely so holding on HD today and waiting until tomorrow to make decision about permacath placement. Also has not had a documented bm since 02/26 Objective Vital Signs - 12hr 03/04/21 03/04/21 03/05/21 23:45 23:50 00:00 Temperature 99.9 F H Pulse Rate 117 H 116 H 115 H Respiratory 37 H 37 H Rate Blood Pressure 113/62 113/62 113/62 O2 Sat by Pulse 92 95 94 Oximetry 03/05/21 03/05/21 03/05/21 00:15 00:30 00:45 Temperature Pulse Rate 117 H 116 H 114 H Respiratory 37 H 37 H 40 H Rate Blood Pressure 111/65 117/67 105/60 O2 Sat by Pulse 93 93 Oximetry 03/05/21 03/05/21 03/05/21 01:00 01:15 01:30 Temperature Pulse Rate 115 H 116 H 119 H Respiratory 35 H 35 H 36 H Rate Blood Pressure 116/68 118/65 120/65 O2 Sat by Pulse 94 91 92 Oximetry 03/05/21 03/05/21 03/05/21 01:45 02:00 02:15 Temperature Pulse Rate 118 H 119 H 118 H Respiratory 36 H 36 H 34 H Rate Blood Pressure 125/68 104/57 111/64 O2 Sat by Pulse 91 94 97 Oximetry 03/05/21 03/05/21 03/05/21 02:30 02:45 03:00 Temperature Pulse Rate 118 H 118 H 118 H Respiratory 37 H 37 H 38 H Rate Blood Pressure 120/64 116/60 119/68 O2 Sat by Pulse 92 93 95 Oximetry 03/05/21 03/05/21 03/05/21 03:15 03:30 03:45 Temperature Pulse Rate 117 H 118 H 120 H Respiratory 37 H 38 H 33 H Rate Blood Pressure 100/61 110/62 107/64 O2 Sat by Pulse 94 94 95 Oximetry 03/05/21 03/05/21 03/05/21 04:00 04:02 04:15 Temperature Pulse Rate 118 H 117 H 117 H Respiratory 37 H 38 H Rate Blood Pressure 107/64 111/59 101/66 O2 Sat by Pulse 93 95 94 Oximetry 03/05/21 03/05/21 03/05/21 04:30 04:45 05:00 Temperature Pulse Rate 117 H 117 H 120 H Respiratory 38 H 38 H 13 Rate Blood Pressure 100/58 101/63 98/52 O2 Sat by Pulse 91 94 Oximetry 03/05/21 03/05/21 03/05/21 05:15 05:30 05:45 Temperature Pulse Rate 115 H 117 H 121 H Respiratory 34 H 27 H 38 H Rate Blood Pressure 101/60 119/67 120/64 O2 Sat by Pulse 99 96 93 Oximetry 03/05/21 03/05/21 03/05/21 06:00 06:15 06:30 Temperature Pulse Rate 119 H 119 H 120 H Respiratory 29 H 40 H 37 H Rate Blood Pressure 110/72 110/64 113/61 O2 Sat by Pulse 93 94 93 Oximetry 03/05/21 03/05/21 03/05/21 06:45 07:00 07:15 Temperature 100.2 F H Pulse Rate 121 H 121 H 122 H Respiratory 38 H 38 H 38 H Rate Blood Pressure 108/62 108/61 106/60 O2 Sat by Pulse 91 Oximetry 03/05/21 03/05/21 03/05/21 07:30 07:43 07:45 Temperature Pulse Rate 121 H 117 H 120 H Respiratory 38 H 35 H Rate Blood Pressure 106/58 106/58 113/62 O2 Sat by Pulse 94 Oximetry 03/05/21 03/05/21 03/05/21 08:00 08:15 08:30 Temperature Pulse Rate 116 H 117 H 113 H Respiratory 35 H 38 H 35 H Rate Blood Pressure 107/65 101/53 107/59 O2 Sat by Pulse 94 92 Oximetry 03/05/21 03/05/21 03/05/21 08:45 09:00 11:17 Temperature Pulse Rate 115 H 112 H 111 H Respiratory 33 H 34 H Rate Blood Pressure 107/68 96/55 103/62 O2 Sat by Pulse 96 95 Oximetry Constitutional: other (sedated) Eyes: non-icteric ENT: other (orally intubated, critically ill) Neck: supple Effort: mildly labored (tachypneic) Ascultation: Bilateral: clear, other (coarse BS bilaterally) Percussion: Bilateral: not dull Cardiovascular: regular rate and rhythm (no mrg) Gastrointestinal: normoactive bowel sounds Integumentary: normal Extremities: no cyanosis, no edema, pink and warm Neurologic: unable to assess Psychiatric: other (unable to assess) CBC and BMP: 03/04/21 Unknown 03/05/21 09:00 ABG, PT/INR, D-dimer: ABG ABG pH 7.160 (7.320-7.450) L 03/05/21 04:18 POC ABG pCO2 86.3 mmHg (32.0-48.0) H 03/05/21 04:18 ABG pCO2 62.0 mm Hg 03/04/21 03:15 POC ABG pO2 55.9 mmHg (83-108) L 03/05/21 04:18 ABG pO2 80.9 mm Hg (80.0-90.0) 03/04/21 03:15 POC ABG HCO3 30.1 03/05/21 04:18 ABG O2 Saturation 83.8 (0-100) 03/05/21 04:18 PT/INR, D-dimer PT 14.6 Sec. (12.2-14.9) 03/03/21 Unknown INR 1.15 (0.87-1.13) H 03/03/21 Unknown D-Dimer 6536.84 ng/mlDDU (0-234) H 02/25/21 09:03 Abnormal lab findings: Abnormal Labs 01/22/21 01/22/21 01/22/21 22:39 22:57 22:57 WBC RBC Hgb Hct MCV MCH MCHC RDW Plt Count Lymph % (Auto) 6.6 L Lymph # (Auto) 0.5 L Seg Neutrophils % 87.6 H Seg Neuts % (Manual) Lymphocytes % (Manual) Monocytes % (Manual) Nucleated RBC % Seg Neutrophils # Seg Neutrophils # Man Lymphocytes # (Manual) Monocytes # (Manual) Eosinophils # (Manual) INR D-Dimer ABG pH POC ABG pCO2 POC ABG pO2 ABG pO2 ABG HCO3 ABG O2 Saturation ABG Base Excess ABG Hemoglobin ABG Oxyhemoglobin ABG Sodium ABG Potassium ABG Chloride ABG Glucose Oxyhemoglobin Carboxyhemoglobin Sodium 129 L Potassium 3.4 L Chloride 90.4 L Carbon Dioxide BUN 34 H Creatinine 1.5 H Glucose 146 H POC Glucose Hemoglobin A1c Lactic Acid Calcium 7.8 L Phosphorus Magnesium Ferritin Total Bilirubin AST 75 H ALT 57 H Lactate Dehydrogenase C-Reactive Protein Albumin 2.9 L Triglycerides Arterial Blood Glucose Arterial Blood Ionized Calcium Urine Creatinine 301.2 H Coronavirus (PCR) Crossmatch 01/22/21 01/22/21 01/22/21 22:57 22:57 22:57 WBC RBC Hgb Hct MCV MCH MCHC RDW Plt Count Lymph % (Auto) Lymph # (Auto) Seg Neutrophils % Seg Neuts % (Manual) Lymphocytes % (Manual) Monocytes % (Manual) Nucleated RBC % Seg Neutrophils # Seg Neutrophils # Man Lymphocytes # (Manual) Monocytes # (Manual) Eosinophils # (Manual) INR D-Dimer 1173.89 H ABG pH POC ABG pCO2 POC ABG pO2 ABG pO2 ABG HCO3 ABG O2 Saturation ABG Base Excess ABG Hemoglobin ABG Oxyhemoglobin ABG Sodium ABG Potassium ABG Chloride ABG Glucose Oxyhemoglobin Carboxyhemoglobin Sodium Potassium Chloride Carbon Dioxide BUN Creatinine Glucose 149 H POC Glucose Hemoglobin A1c Lactic Acid 2.10 H* Calcium Phosphorus Magnesium Ferritin Total Bilirubin AST ALT Lactate Dehydrogenase 685 H C-Reactive Protein 30.40 H Albumin Triglycerides Arterial Blood Glucose Arterial Blood Ionized Calcium Urine Creatinine Coronavirus (PCR) Crossmatch 01/22/21 01/23/21 01/23/21 22:57 08:41 10:01 WBC RBC Hgb Hct MCV MCH MCHC RDW Plt Count Lymph % (Auto) Lymph # (Auto) Seg Neutrophils % Seg Neuts % (Manual) Lymphocytes % (Manual) Monocytes % (Manual) Nucleated RBC % Seg Neutrophils # Seg Neutrophils # Man Lymphocytes # (Manual) Monocytes # (Manual) Eosinophils # (Manual) INR D-Dimer ABG pH POC ABG pCO2 POC ABG pO2 ABG pO2 ABG HCO3 ABG O2 Saturation ABG Base Excess ABG Hemoglobin ABG Oxyhemoglobin ABG Sodium ABG Potassium ABG Chloride ABG Glucose Oxyhemoglobin Carboxyhemoglobin Sodium 131 L Potassium Chloride 88.7 L Carbon Dioxide 18 L BUN 36 H Creatinine 1.6 H Glucose 147 H POC Glucose Hemoglobin A1c Lactic Acid Calcium 7.5 L Phosphorus Magnesium Ferritin 1207.0 H Total Bilirubin AST ALT Lactate Dehydrogenase C-Reactive Protein Albumin Triglycerides Arterial Blood Glucose Arterial Blood Ionized Calcium Urine Creatinine Coronavirus (PCR) Positive A Crossmatch 01/23/21 01/23/21 01/24/21 20:49 Unknown 00:10 WBC RBC Hgb Hct MCV MCH MCHC RDW Plt Count Lymph % (Auto) Lymph # (Auto) Seg Neutrophils % Seg Neuts % (Manual) Lymphocytes % (Manual) Monocytes % (Manual) Nucleated RBC % Seg Neutrophils # Seg Neutrophils # Man Lymphocytes # (Manual) Monocytes # (Manual) Eosinophils # (Manual) INR D-Dimer ABG pH POC ABG pCO2 POC ABG pO2 ABG pO2 165.4 H ABG HCO3 ABG O2 Saturation ABG Base Excess -2.5 L ABG Hemoglobin ABG Oxyhemoglobin ABG Sodium ABG Potassium ABG Chloride ABG Glucose Oxyhemoglobin Carboxyhemoglobin Sodium 130 L Potassium Chloride 91.0 L Carbon Dioxide 20 L BUN 52 H Creatinine 3.8 H D Glucose 150 H POC Glucose 125 H Hemoglobin A1c Lactic Acid Calcium 8.0 L Phosphorus Magnesium Ferritin Total Bilirubin AST 42 H ALT Lactate Dehydrogenase C-Reactive Protein Albumin 2.4 L Triglycerides Arterial Blood Glucose Arterial Blood Ionized Calcium Urine Creatinine Coronavirus (PCR) Crossmatch 01/24/21 01/24/21 01/24/21 05:05 05:05 05:05 WBC 14.0 H RBC Hgb Hct MCV 95 H MCH 33 H MCHC RDW Plt Count Lymph % (Auto) Lymph # (Auto) Seg Neutrophils % Seg Neuts % (Manual) 91.0 H Lymphocytes % (Manual) 4.0 L Monocytes % (Manual) Nucleated RBC % Seg Neutrophils # Seg Neutrophils # Man 12.7 H Lymphocytes # (Manual) 0.6 L Monocytes # (Manual) Eosinophils # (Manual) INR D-Dimer 6159.48 H ABG pH POC ABG pCO2 POC ABG pO2 ABG pO2 ABG HCO3 ABG O2 Saturation ABG Base Excess ABG Hemoglobin ABG Oxyhemoglobin ABG Sodium ABG Potassium ABG Chloride ABG Glucose Oxyhemoglobin Carboxyhemoglobin Sodium Potassium Chloride Carbon Dioxide BUN Creatinine Glucose POC Glucose Hemoglobin A1c Lactic Acid Calcium Phosphorus Magnesium Ferritin 1178.0 H Total Bilirubin AST ALT Lactate Dehydrogenase C-Reactive Protein Albumin Triglycerides Arterial Blood Glucose Arterial Blood Ionized Calcium Urine Creatinine Coronavirus (PCR) Crossmatch 01/24/21 01/24/21 01/24/21 05:05 05:05 05:05 WBC RBC Hgb Hct MCV MCH MCHC RDW Plt Count Lymph % (Auto) Lymph # (Auto) Seg Neutrophils % Seg Neuts % (Manual) Lymphocytes % (Manual) Monocytes % (Manual) Nucleated RBC % Seg Neutrophils # Seg Neutrophils # Man Lymphocytes # (Manual) Monocytes # (Manual) Eosinophils # (Manual) INR D-Dimer ABG pH POC ABG pCO2 POC ABG pO2 ABG pO2 ABG HCO3 ABG O2 Saturation ABG Base Excess ABG Hemoglobin ABG Oxyhemoglobin ABG Sodium ABG Potassium ABG Chloride ABG Glucose Oxyhemoglobin Carboxyhemoglobin Sodium 132 L Potassium Chloride 93.1 L Carbon Dioxide 21 L BUN 57 H Creatinine 3.7 H Glucose 133 H POC Glucose Hemoglobin A1c Lactic Acid 2.20 H* Calcium 7.7 L Phosphorus Magnesium Ferritin Total Bilirubin AST ALT Lactate Dehydrogenase 658 H C-Reactive Protein 33.20 H Albumin 2.4 L Triglycerides Arterial Blood Glucose Arterial Blood Ionized Calcium Urine Creatinine Coronavirus (PCR) Crossmatch 01/24/21 01/24/21 01/24/21 05:34 06:00 17:35 WBC RBC Hgb Hct MCV MCH MCHC RDW Plt Count Lymph % (Auto) Lymph # (Auto) Seg Neutrophils % Seg Neuts % (Manual) Lymphocytes % (Manual) Monocytes % (Manual) Nucleated RBC % Seg Neutrophils # Seg Neutrophils # Man Lymphocytes # (Manual) Monocytes # (Manual) Eosinophils # (Manual) INR D-Dimer ABG pH POC ABG pCO2 POC ABG pO2 ABG pO2 ABG HCO3 ABG O2 Saturation ABG Base Excess ABG Hemoglobin ABG Oxyhemoglobin ABG Sodium ABG Potassium ABG Chloride ABG Glucose Oxyhemoglobin Carboxyhemoglobin Sodium Potassium Chloride Carbon Dioxide BUN Creatinine Glucose POC Glucose 136 H 137 H Hemoglobin A1c Lactic Acid Calcium Phosphorus Magnesium 2.80 H Ferritin Total Bilirubin AST ALT Lactate Dehydrogenase C-Reactive Protein Albumin Triglycerides Arterial Blood Glucose Arterial Blood Ionized Calcium Urine Creatinine Coronavirus (PCR) Crossmatch 01/25/21 01/25/21 01/25/21 04:15 05:40 05:40 WBC RBC Hgb Hct MCV 95 H MCH 33 H MCHC 35 H RDW Plt Count Lymph % (Auto) Lymph # (Auto) Seg Neutrophils % Seg Neuts % (Manual) 95.0 H Lymphocytes % (Manual) 3.0 L Monocytes % (Manual) Nucleated RBC % Seg Neutrophils # Seg Neutrophils # Man 7.8 H Lymphocytes # (Manual) 0.2 L Monocytes # (Manual) Eosinophils # (Manual) INR D-Dimer ABG pH POC ABG pCO2 POC ABG pO2 63.2 L ABG pO2 ABG HCO3 ABG O2 Saturation ABG Base Excess ABG Hemoglobin ABG Oxyhemoglobin 89.6 L ABG Sodium ABG Potassium ABG Chloride ABG Glucose 165 H Oxyhemoglobin Carboxyhemoglobin 0.3 L Sodium Potassium Chloride Carbon Dioxide BUN 67 H Creatinine 3.4 H Glucose 153 H POC Glucose Hemoglobin A1c Lactic Acid Calcium 7.5 L Phosphorus Magnesium Ferritin Total Bilirubin 1.40 H AST 62 H ALT Lactate Dehydrogenase C-Reactive Protein Albumin 2.6 L Triglycerides Arterial Blood Glucose 165 H Arterial Blood Ionized Calcium 4.3 L Urine Creatinine Coronavirus (PCR) Crossmatch 01/25/21 01/25/21 01/25/21 05:59 12:00 17:17 WBC RBC Hgb Hct MCV MCH MCHC RDW Plt Count Lymph % (Auto) Lymph # (Auto) Seg Neutrophils % Seg Neuts % (Manual) Lymphocytes % (Manual) Monocytes % (Manual) Nucleated RBC % Seg Neutrophils # Seg Neutrophils # Man Lymphocytes # (Manual) Monocytes # (Manual) Eosinophils # (Manual) INR D-Dimer ABG pH POC ABG pCO2 POC ABG pO2 ABG pO2 ABG HCO3 ABG O2 Saturation ABG Base Excess ABG Hemoglobin ABG Oxyhemoglobin ABG Sodium ABG Potassium ABG Chloride ABG Glucose Oxyhemoglobin Carboxyhemoglobin Sodium Potassium Chloride Carbon Dioxide BUN Creatinine Glucose POC Glucose 140 H 143 H 149 H Hemoglobin A1c Lactic Acid Calcium Phosphorus Magnesium Ferritin Total Bilirubin AST ALT Lactate Dehydrogenase C-Reactive Protein Albumin Triglycerides Arterial Blood Glucose Arterial Blood Ionized Calcium Urine Creatinine Coronavirus (PCR) Crossmatch 01/25/21 01/26/21 01/26/21 23:41 03:43 05:46 WBC RBC Hgb Hct MCV MCH MCHC RDW Plt Count Lymph % (Auto) Lymph # (Auto) Seg Neutrophils % Seg Neuts % (Manual) Lymphocytes % (Manual) Monocytes % (Manual) Nucleated RBC % Seg Neutrophils # Seg Neutrophils # Man Lymphocytes # (Manual) Monocytes # (Manual) Eosinophils # (Manual) INR D-Dimer ABG pH POC ABG pCO2 POC ABG pO2 70.0 L ABG pO2 ABG HCO3 ABG O2 Saturation ABG Base Excess ABG Hemoglobin ABG Oxyhemoglobin 91.9 L ABG Sodium ABG Potassium ABG Chloride 109.0 H ABG Glucose 165 H Oxyhemoglobin Carboxyhemoglobin Sodium Potassium Chloride Carbon Dioxide BUN Creatinine Glucose POC Glucose 132 H 161 H Hemoglobin A1c Lactic Acid Calcium Phosphorus Magnesium Ferritin Total Bilirubin AST ALT Lactate Dehydrogenase C-Reactive Protein Albumin Triglycerides Arterial Blood Glucose 165 H Arterial Blood Ionized Calcium 4.5 L Urine Creatinine Coronavirus (PCR) Crossmatch 01/26/21 01/26/21 01/26/21 05:47 05:47 05:47 WBC RBC Hgb Hct 35.3 L MCV 96 H MCH 33 H MCHC RDW Plt Count Lymph % (Auto) Lymph # (Auto) Seg Neutrophils % Seg Neuts % (Manual) 96.0 H Lymphocytes % (Manual) 2.0 L Monocytes % (Manual) Nucleated RBC % Seg Neutrophils # Seg Neutrophils # Man Lymphocytes # (Manual) 0.1 L Monocytes # (Manual) Eosinophils # (Manual) INR D-Dimer > 40587 H ABG pH POC ABG pCO2 POC ABG pO2 ABG pO2 ABG HCO3 ABG O2 Saturation ABG Base Excess ABG Hemoglobin ABG Oxyhemoglobin ABG Sodium ABG Potassium ABG Chloride ABG Glucose Oxyhemoglobin Carboxyhemoglobin Sodium Potassium Chloride Carbon Dioxide BUN 57 H Creatinine 2.2 H Glucose 185 H POC Glucose Hemoglobin A1c Lactic Acid Calcium 8.1 L Phosphorus Magnesium Ferritin Total Bilirubin AST ALT Lactate Dehydrogenase C-Reactive Protein Albumin Triglycerides Arterial Blood Glucose Arterial Blood Ionized Calcium Urine Creatinine Coronavirus (PCR) Crossmatch 01/26/21 01/26/21 01/26/21 05:47 05:47 05:47 WBC RBC Hgb Hct MCV MCH MCHC RDW Plt Count Lymph % (Auto) Lymph # (Auto) Seg Neutrophils % Seg Neuts % (Manual) Lymphocytes % (Manual) Monocytes % (Manual) Nucleated RBC % Seg Neutrophils # Seg Neutrophils # Man Lymphocytes # (Manual) Monocytes # (Manual) Eosinophils # (Manual) INR D-Dimer ABG pH POC ABG pCO2 POC ABG pO2 ABG pO2 ABG HCO3 ABG O2 Saturation ABG Base Excess ABG Hemoglobin ABG Oxyhemoglobin ABG Sodium ABG Potassium ABG Chloride ABG Glucose Oxyhemoglobin Carboxyhemoglobin Sodium Potassium Chloride 107.1 H Carbon Dioxide BUN 56 H Creatinine 2.2 H Glucose 188 H POC Glucose Hemoglobin A1c Lactic Acid Calcium 8.0 L Phosphorus Magnesium Ferritin 1178.0 H Total Bilirubin 1.50 H AST ALT Lactate Dehydrogenase 588 H C-Reactive Protein 40.10 H Albumin 2.2 L Triglycerides Arterial Blood Glucose Arterial Blood Ionized Calcium Urine Creatinine Coronavirus (PCR) Crossmatch 01/26/21 01/26/21 01/26/21 11:34 18:17 23:20 WBC RBC Hgb Hct MCV MCH MCHC RDW Plt Count Lymph % (Auto) Lymph # (Auto) Seg Neutrophils % Seg Neuts % (Manual) Lymphocytes % (Manual) Monocytes % (Manual) Nucleated RBC % Seg Neutrophils # Seg Neutrophils # Man Lymphocytes # (Manual) Monocytes # (Manual) Eosinophils # (Manual) INR D-Dimer ABG pH POC ABG pCO2 POC ABG pO2 ABG pO2 ABG HCO3 ABG O2 Saturation ABG Base Excess ABG Hemoglobin ABG Oxyhemoglobin ABG Sodium ABG Potassium ABG Chloride ABG Glucose Oxyhemoglobin Carboxyhemoglobin Sodium Potassium Chloride Carbon Dioxide BUN Creatinine Glucose POC Glucose 129 H 205 H 155 H Hemoglobin A1c Lactic Acid Calcium Phosphorus Magnesium Ferritin Total Bilirubin AST ALT Lactate Dehydrogenase C-Reactive Protein Albumin Triglycerides Arterial Blood Glucose Arterial Blood Ionized Calcium Urine Creatinine Coronavirus (PCR) Crossmatch 01/27/21 01/27/21 01/27/21 02:45 05:29 05:29 WBC RBC 3.58 L Hgb 11.7 L Hct 34.9 L MCV 97 H MCH 33 H MCHC RDW Plt Count Lymph % (Auto) Lymph # (Auto) Seg Neutrophils % Seg Neuts % (Manual) 88.0 H Lymphocytes % (Manual) 7.0 L Monocytes % (Manual) Nucleated RBC % Seg Neutrophils # Seg Neutrophils # Man Lymphocytes # (Manual) 0.5 L Monocytes # (Manual) Eosinophils # (Manual) INR D-Dimer ABG pH 7.319 L POC ABG pCO2 50.7 H POC ABG pO2 63.0 L ABG pO2 ABG HCO3 ABG O2 Saturation ABG Base Excess ABG Hemoglobin ABG Oxyhemoglobin ABG Sodium 145.2 H ABG Potassium 5.1 H ABG Chloride 114.0 H ABG Glucose 178 H Oxyhemoglobin Carboxyhemoglobin Sodium Potassium Chloride Carbon Dioxide BUN Creatinine Glucose POC Glucose Hemoglobin A1c Lactic Acid Calcium Phosphorus Magnesium 4.00 H Ferritin Total Bilirubin AST ALT Lactate Dehydrogenase C-Reactive Protein Albumin Triglycerides Arterial Blood Glucose 178 H Arterial Blood Ionized Calcium Urine Creatinine Coronavirus (PCR) Crossmatch 01/27/21 01/27/21 01/27/21 05:29 05:29 05:31 WBC RBC Hgb Hct MCV MCH MCHC RDW Plt Count Lymph % (Auto) Lymph # (Auto) Seg Neutrophils % Seg Neuts % (Manual) Lymphocytes % (Manual) Monocytes % (Manual) Nucleated RBC % Seg Neutrophils # Seg Neutrophils # Man Lymphocytes # (Manual) Monocytes # (Manual) Eosinophils # (Manual) INR D-Dimer ABG pH POC ABG pCO2 POC ABG pO2 ABG pO2 ABG HCO3 ABG O2 Saturation ABG Base Excess ABG Hemoglobin ABG Oxyhemoglobin ABG Sodium ABG Potassium ABG Chloride ABG Glucose Oxyhemoglobin Carboxyhemoglobin Sodium Potassium 5.2 H Chloride 109.6 H Carbon Dioxide BUN 67 H Creatinine 2.8 H Glucose 195 H POC Glucose 176 H Hemoglobin A1c Lactic Acid Calcium 7.9 L Phosphorus Magnesium Ferritin Total Bilirubin AST ALT Lactate Dehydrogenase C-Reactive Protein Albumin Triglycerides 160 H Arterial Blood Glucose Arterial Blood Ionized Calcium Urine Creatinine Coronavirus (PCR) Crossmatch 01/27/21 01/27/21 01/27/21 11:27 18:08 23:30 WBC RBC Hgb Hct MCV MCH MCHC RDW Plt Count Lymph % (Auto) Lymph # (Auto) Seg Neutrophils % Seg Neuts % (Manual) Lymphocytes % (Manual) Monocytes % (Manual) Nucleated RBC % Seg Neutrophils # Seg Neutrophils # Man Lymphocytes # (Manual) Monocytes # (Manual) Eosinophils # (Manual) INR D-Dimer ABG pH POC ABG pCO2 POC ABG pO2 ABG pO2 ABG HCO3 ABG O2 Saturation ABG Base Excess ABG Hemoglobin ABG Oxyhemoglobin ABG Sodium ABG Potassium ABG Chloride ABG Glucose Oxyhemoglobin Carboxyhemoglobin Sodium Potassium Chloride Carbon Dioxide BUN Creatinine Glucose POC Glucose 189 H 212 H 175 H Hemoglobin A1c Lactic Acid Calcium Phosphorus Magnesium Ferritin Total Bilirubin AST ALT Lactate Dehydrogenase C-Reactive Protein Albumin Triglycerides Arterial Blood Glucose Arterial Blood Ionized Calcium Urine Creatinine Coronavirus (PCR) Crossmatch 01/28/21 01/28/21 01/28/21 03:58 04:00 04:00 WBC RBC Hgb Hct MCV MCH MCHC RDW Plt Count Lymph % (Auto) Lymph # (Auto) Seg Neutrophils % Seg Neuts % (Manual) Lymphocytes % (Manual) Monocytes % (Manual) Nucleated RBC % Seg Neutrophils # Seg Neutrophils # Man Lymphocytes # (Manual) Monocytes # (Manual) Eosinophils # (Manual) INR D-Dimer > 26201 H ABG pH POC ABG pCO2 POC ABG pO2 52.9 L ABG pO2 ABG HCO3 ABG O2 Saturation ABG Base Excess ABG Hemoglobin ABG Oxyhemoglobin 84.1 L ABG Sodium 148.9 H ABG Potassium ABG Chloride 117.0 H ABG Glucose 194 H Oxyhemoglobin Carboxyhemoglobin Sodium Potassium Chloride Carbon Dioxide BUN Creatinine Glucose POC Glucose Hemoglobin A1c Lactic Acid Calcium Phosphorus Magnesium Ferritin Total Bilirubin AST ALT Lactate Dehydrogenase 679 H C-Reactive Protein 17.10 H Albumin Triglycerides Arterial Blood Glucose 194 H Arterial Blood Ionized Calcium Urine Creatinine Coronavirus (PCR) Crossmatch 01/28/21 01/28/21 01/28/21 04:00 05:00 06:00 WBC RBC 3.59 L Hgb 11.6 L Hct 34.8 L MCV 97 H MCH MCHC RDW Plt Count Lymph % (Auto) Lymph # (Auto) Seg Neutrophils % Seg Neuts % (Manual) 96.0 H Lymphocytes % (Manual) 3.0 L Monocytes % (Manual) Nucleated RBC % Seg Neutrophils # Seg Neutrophils # Man Lymphocytes # (Manual) 0.2 L Monocytes # (Manual) Eosinophils # (Manual) INR D-Dimer ABG pH POC ABG pCO2 POC ABG pO2 ABG pO2 ABG HCO3 ABG O2 Saturation ABG Base Excess ABG Hemoglobin ABG Oxyhemoglobin ABG Sodium ABG Potassium ABG Chloride ABG Glucose Oxyhemoglobin Carboxyhemoglobin Sodium Potassium Chloride Carbon Dioxide BUN Creatinine Glucose POC Glucose 159 H Hemoglobin A1c Lactic Acid Calcium Phosphorus Magnesium Ferritin 798.0 H Total Bilirubin AST ALT Lactate Dehydrogenase C-Reactive Protein Albumin Triglycerides Arterial Blood Glucose Arterial Blood Ionized Calcium Urine Creatinine Coronavirus (PCR) Crossmatch 01/28/21 01/28/21 01/28/21 06:00 06:00 08:12 WBC RBC Hgb Hct MCV MCH MCHC RDW Plt Count Lymph % (Auto) Lymph # (Auto) Seg Neutrophils % Seg Neuts % (Manual) Lymphocytes % (Manual) Monocytes % (Manual) Nucleated RBC % Seg Neutrophils # Seg Neutrophils # Man Lymphocytes # (Manual) Monocytes # (Manual) Eosinophils # (Manual) INR D-Dimer ABG pH POC ABG pCO2 POC ABG pO2 ABG pO2 ABG HCO3 ABG O2 Saturation ABG Base Excess ABG Hemoglobin ABG Oxyhemoglobin ABG Sodium ABG Potassium ABG Chloride ABG Glucose Oxyhemoglobin Carboxyhemoglobin Sodium Potassium Chloride 111.9 H Carbon Dioxide BUN 59 H Creatinine 2.2 H Glucose 189 H POC Glucose 181 H Hemoglobin A1c Lactic Acid Calcium 8.1 L Phosphorus Magnesium 3.20 H Ferritin Total Bilirubin AST ALT Lactate Dehydrogenase C-Reactive Protein Albumin Triglycerides Arterial Blood Glucose Arterial Blood Ionized Calcium Urine Creatinine Coronavirus (PCR) Crossmatch 01/28/21 01/28/21 01/28/21 12:03 16:43 23:51 WBC RBC Hgb Hct MCV MCH MCHC RDW Plt Count Lymph % (Auto) Lymph # (Auto) Seg Neutrophils % Seg Neuts % (Manual) Lymphocytes % (Manual) Monocytes % (Manual) Nucleated RBC % Seg Neutrophils # Seg Neutrophils # Man Lymphocytes # (Manual) Monocytes # (Manual) Eosinophils # (Manual) INR D-Dimer ABG pH POC ABG pCO2 POC ABG pO2 ABG pO2 ABG HCO3 ABG O2 Saturation ABG Base Excess ABG Hemoglobin ABG Oxyhemoglobin ABG Sodium ABG Potassium ABG Chloride ABG Glucose Oxyhemoglobin Carboxyhemoglobin Sodium Potassium Chloride Carbon Dioxide BUN Creatinine Glucose POC Glucose 164 H 198 H 196 H Hemoglobin A1c Lactic Acid Calcium Phosphorus Magnesium Ferritin Total Bilirubin AST ALT Lactate Dehydrogenase C-Reactive Protein Albumin Triglycerides Arterial Blood Glucose Arterial Blood Ionized Calcium Urine Creatinine Coronavirus (PCR) Crossmatch 01/29/21 01/29/21 01/29/21 05:00 05:23 06:00 WBC RBC Hgb Hct MCV MCH MCHC RDW Plt Count Lymph % (Auto) Lymph # (Auto) Seg Neutrophils % Seg Neuts % (Manual) Lymphocytes % (Manual) Monocytes % (Manual) Nucleated RBC % Seg Neutrophils # Seg Neutrophils # Man Lymphocytes # (Manual) Monocytes # (Manual) Eosinophils # (Manual) INR D-Dimer ABG pH 7.119 L POC ABG pCO2 87.1 H POC ABG pO2 ABG pO2 ABG HCO3 ABG O2 Saturation ABG Base Excess ABG Hemoglobin ABG Oxyhemoglobin ABG Sodium 152.5 H ABG Potassium 5.7 H ABG Chloride 120.0 H ABG Glucose 217 H Oxyhemoglobin Carboxyhemoglobin Sodium 151 H Potassium 5.9 H D Chloride 117.8 H Carbon Dioxide BUN 54 H Creatinine 2.2 H Glucose 208 H POC Glucose 180 H Hemoglobin A1c Lactic Acid Calcium 7.9 L Phosphorus Magnesium Ferritin Total Bilirubin AST ALT Lactate Dehydrogenase C-Reactive Protein Albumin Triglycerides Arterial Blood Glucose 217 H Arterial Blood Ionized Calcium Urine Creatinine Coronavirus (PCR) Crossmatch 01/29/21 01/29/21 01/29/21 12:29 17:28 18:05 WBC RBC Hgb Hct MCV MCH MCHC RDW Plt Count Lymph % (Auto) Lymph # (Auto) Seg Neutrophils % Seg Neuts % (Manual) Lymphocytes % (Manual) Monocytes % (Manual) Nucleated RBC % Seg Neutrophils # Seg Neutrophils # Man Lymphocytes # (Manual) Monocytes # (Manual) Eosinophils # (Manual) INR D-Dimer ABG pH POC ABG pCO2 POC ABG pO2 ABG pO2 ABG HCO3 ABG O2 Saturation ABG Base Excess ABG Hemoglobin ABG Oxyhemoglobin ABG Sodium ABG Potassium ABG Chloride ABG Glucose Oxyhemoglobin Carboxyhemoglobin Sodium 151 H Potassium 5.5 H Chloride 118.2 H Carbon Dioxide BUN 52 H Creatinine 2.2 H Glucose 224 H POC Glucose 181 H 203 H Hemoglobin A1c Lactic Acid Calcium 8.0 L Phosphorus Magnesium Ferritin Total Bilirubin AST ALT Lactate Dehydrogenase C-Reactive Protein Albumin Triglycerides Arterial Blood Glucose Arterial Blood Ionized Calcium Urine Creatinine Coronavirus (PCR) Crossmatch 01/29/21 01/29/21 01/29/21 18:13 23:34 Unknown WBC RBC Hgb Hct MCV 101 H MCH MCHC RDW 15.7 H Plt Count Lymph % (Auto) Lymph # (Auto) Seg Neutrophils % Seg Neuts % (Manual) 95.0 H Lymphocytes % (Manual) 3.0 L Monocytes % (Manual) Nucleated RBC % Seg Neutrophils # Seg Neutrophils # Man 8.0 H Lymphocytes # (Manual) 0.3 L Monocytes # (Manual) Eosinophils # (Manual) INR D-Dimer ABG pH 7.223 L POC ABG pCO2 64.8 H POC ABG pO2 63.6 L ABG pO2 ABG HCO3 ABG O2 Saturation ABG Base Excess ABG Hemoglobin ABG Oxyhemoglobin 89.4 L ABG Sodium 152.9 H ABG Potassium 5.3 H ABG Chloride 121.0 H ABG Glucose 227 H Oxyhemoglobin Carboxyhemoglobin Sodium Potassium Chloride Carbon Dioxide BUN Creatinine Glucose POC Glucose 198 H Hemoglobin A1c Lactic Acid Calcium Phosphorus Magnesium Ferritin Total Bilirubin AST ALT Lactate Dehydrogenase C-Reactive Protein Albumin Triglycerides Arterial Blood Glucose 227 H Arterial Blood Ionized Calcium Urine Creatinine Coronavirus (PCR) Crossmatch 01/30/21 01/30/21 01/30/21 04:00 04:00 04:00 WBC RBC Hgb Hct MCV MCH MCHC RDW Plt Count Lymph % (Auto) Lymph # (Auto) Seg Neutrophils % Seg Neuts % (Manual) Lymphocytes % (Manual) Monocytes % (Manual) Nucleated RBC % Seg Neutrophils # Seg Neutrophils # Man Lymphocytes # (Manual) Monocytes # (Manual) Eosinophils # (Manual) INR D-Dimer > 57914 H ABG pH POC ABG pCO2 POC ABG pO2 ABG pO2 ABG HCO3 ABG O2 Saturation ABG Base Excess ABG Hemoglobin ABG Oxyhemoglobin ABG Sodium ABG Potassium ABG Chloride ABG Glucose Oxyhemoglobin Carboxyhemoglobin Sodium Potassium Chloride Carbon Dioxide BUN Creatinine Glucose 234 H POC Glucose Hemoglobin A1c Lactic Acid Calcium Phosphorus Magnesium Ferritin 763.9 H Total Bilirubin AST ALT Lactate Dehydrogenase 424 H C-Reactive Protein 23.90 H Albumin Triglycerides Arterial Blood Glucose Arterial Blood Ionized Calcium Urine Creatinine Coronavirus (PCR) Crossmatch 01/30/21 01/30/21 01/30/21 04:24 05:00 05:16 WBC RBC 3.57 L Hgb 11.3 L Hct 35.4 L MCV 99 H MCH MCHC RDW 15.6 H Plt Count Lymph % (Auto) Lymph # (Auto) Seg Neutrophils % Seg Neuts % (Manual) 97.0 H Lymphocytes % (Manual) 1.0 L Monocytes % (Manual) Nucleated RBC % Seg Neutrophils # Seg Neutrophils # Man 8.6 H Lymphocytes # (Manual) 0.1 L Monocytes # (Manual) Eosinophils # (Manual) INR D-Dimer ABG pH 7.235 L POC ABG pCO2 69.7 H POC ABG pO2 61.0 L ABG pO2 ABG HCO3 ABG O2 Saturation ABG Base Excess ABG Hemoglobin ABG Oxyhemoglobin 89 L ABG Sodium 154.2 H ABG Potassium 5.4 H ABG Chloride 121.0 H ABG Glucose 247 H Oxyhemoglobin Carboxyhemoglobin Sodium Potassium Chloride Carbon Dioxide BUN Creatinine Glucose POC Glucose 238 H Hemoglobin A1c Lactic Acid Calcium Phosphorus Magnesium Ferritin Total Bilirubin AST ALT Lactate Dehydrogenase C-Reactive Protein Albumin Triglycerides Arterial Blood Glucose 247 H Arterial Blood Ionized Calcium Urine Creatinine Coronavirus (PCR) Crossmatch 01/30/21 01/30/21 01/30/21 06:00 11:28 12:00 WBC RBC Hgb Hct MCV MCH MCHC RDW Plt Count Lymph % (Auto) Lymph # (Auto) Seg Neutrophils % Seg Neuts % (Manual) Lymphocytes % (Manual) Monocytes % (Manual) Nucleated RBC % Seg Neutrophils # Seg Neutrophils # Man Lymphocytes # (Manual) Monocytes # (Manual) Eosinophils # (Manual) INR D-Dimer ABG pH POC ABG pCO2 POC ABG pO2 ABG pO2 ABG HCO3 ABG O2 Saturation ABG Base Excess ABG Hemoglobin ABG Oxyhemoglobin ABG Sodium ABG Potassium ABG Chloride ABG Glucose Oxyhemoglobin Carboxyhemoglobin Sodium 152 H Potassium 5.3 H Chloride 120.5 H Carbon Dioxide BUN 50 H Creatinine 2.3 H Glucose 239 H POC Glucose 153 H Hemoglobin A1c Lactic Acid Calcium 8.2 L Phosphorus Magnesium 2.60 H Ferritin Total Bilirubin AST ALT Lactate Dehydrogenase C-Reactive Protein Albumin Triglycerides 293 H Arterial Blood Glucose Arterial Blood Ionized Calcium Urine Creatinine 53.0 H Coronavirus (PCR) Crossmatch 01/30/21 01/30/21 01/31/21 18:49 23:06 04:00 WBC RBC Hgb Hct MCV MCH MCHC RDW Plt Count Lymph % (Auto) Lymph # (Auto) Seg Neutrophils % Seg Neuts % (Manual) Lymphocytes % (Manual) Monocytes % (Manual) Nucleated RBC % Seg Neutrophils # Seg Neutrophils # Man Lymphocytes # (Manual) Monocytes # (Manual) Eosinophils # (Manual) INR D-Dimer ABG pH POC ABG pCO2 POC ABG pO2 ABG pO2 ABG HCO3 ABG O2 Saturation ABG Base Excess ABG Hemoglobin ABG Oxyhemoglobin ABG Sodium ABG Potassium ABG Chloride ABG Glucose Oxyhemoglobin Carboxyhemoglobin Sodium 156 H Potassium 5.9 H Chloride 122.6 H Carbon Dioxide BUN 61 H Creatinine 3.2 H Glucose 205 H POC Glucose 220 H 192 H Hemoglobin A1c Lactic Acid Calcium 8.0 L Phosphorus Magnesium Ferritin Total Bilirubin AST ALT Lactate Dehydrogenase C-Reactive Protein Albumin Triglycerides Arterial Blood Glucose Arterial Blood Ionized Calcium Urine Creatinine Coronavirus (PCR) Crossmatch 01/31/21 01/31/21 01/31/21 04:40 05:17 11:33 WBC RBC Hgb Hct MCV MCH MCHC RDW Plt Count Lymph % (Auto) Lymph # (Auto) Seg Neutrophils % Seg Neuts % (Manual) Lymphocytes % (Manual) Monocytes % (Manual) Nucleated RBC % Seg Neutrophils # Seg Neutrophils # Man Lymphocytes # (Manual) Monocytes # (Manual) Eosinophils # (Manual) INR D-Dimer ABG pH 7.161 L* POC ABG pCO2 POC ABG pO2 ABG pO2 142.2 H ABG HCO3 28.3 H ABG O2 Saturation ABG Base Excess -3.2 L ABG Hemoglobin ABG Oxyhemoglobin ABG Sodium ABG Potassium ABG Chloride ABG Glucose Oxyhemoglobin Carboxyhemoglobin Sodium Potassium Chloride Carbon Dioxide BUN Creatinine Glucose POC Glucose 200 H 167 H Hemoglobin A1c Lactic Acid Calcium Phosphorus Magnesium Ferritin Total Bilirubin AST ALT Lactate Dehydrogenase C-Reactive Protein Albumin Triglycerides Arterial Blood Glucose Arterial Blood Ionized Calcium Urine Creatinine Coronavirus (PCR) Crossmatch 01/31/21 01/31/21 01/31/21 14:00 17:10 23:24 WBC RBC Hgb Hct MCV MCH MCHC RDW Plt Count Lymph % (Auto) Lymph # (Auto) Seg Neutrophils % Seg Neuts % (Manual) Lymphocytes % (Manual) Monocytes % (Manual) Nucleated RBC % Seg Neutrophils # Seg Neutrophils # Man Lymphocytes # (Manual) Monocytes # (Manual) Eosinophils # (Manual) INR D-Dimer ABG pH 7.205 L POC ABG pCO2 POC ABG pO2 ABG pO2 90.9 H ABG HCO3 26.5 H ABG O2 Saturation ABG Base Excess -2.7 L ABG Hemoglobin 12.3 L ABG Oxyhemoglobin ABG Sodium ABG Potassium ABG Chloride ABG Glucose Oxyhemoglobin 93.9 L Carboxyhemoglobin Sodium Potassium Chloride Carbon Dioxide BUN Creatinine Glucose POC Glucose 190 H 203 H Hemoglobin A1c Lactic Acid Calcium Phosphorus Magnesium Ferritin Total Bilirubin AST ALT Lactate Dehydrogenase C-Reactive Protein Albumin Triglycerides Arterial Blood Glucose Arterial Blood Ionized Calcium Urine Creatinine Coronavirus (PCR) Crossmatch 02/01/21 02/01/21 02/01/21 05:15 06:22 10:20 WBC RBC Hgb Hct MCV MCH MCHC RDW Plt Count Lymph % (Auto) Lymph # (Auto) Seg Neutrophils % Seg Neuts % (Manual) Lymphocytes % (Manual) Monocytes % (Manual) Nucleated RBC % Seg Neutrophils # Seg Neutrophils # Man Lymphocytes # (Manual) Monocytes # (Manual) Eosinophils # (Manual) INR D-Dimer ABG pH 6.920 L* 7.116 L* POC ABG pCO2 POC ABG pO2 ABG pO2 102.9 H 113.1 H ABG HCO3 28.2 H ABG O2 Saturation 92.9 L ABG Base Excess -6.9 L -5.8 L ABG Hemoglobin 11.6 L 9.5 L ABG Oxyhemoglobin ABG Sodium ABG Potassium ABG Chloride ABG Glucose Oxyhemoglobin 90.5 L 94.6 L Carboxyhemoglobin Sodium Potassium Chloride Carbon Dioxide BUN Creatinine Glucose POC Glucose 221 H Hemoglobin A1c Lactic Acid Calcium Phosphorus Magnesium Ferritin Total Bilirubin AST ALT Lactate Dehydrogenase C-Reactive Protein Albumin Triglycerides Arterial Blood Glucose Arterial Blood Ionized Calcium Urine Creatinine Coronavirus (PCR) Crossmatch 02/01/21 02/01/21 02/01/21 11:12 12:35 16:00 WBC RBC Hgb Hct MCV MCH MCHC RDW Plt Count Lymph % (Auto) Lymph # (Auto) Seg Neutrophils % Seg Neuts % (Manual) Lymphocytes % (Manual) Monocytes % (Manual) Nucleated RBC % Seg Neutrophils # Seg Neutrophils # Man Lymphocytes # (Manual) Monocytes # (Manual) Eosinophils # (Manual) INR D-Dimer ABG pH 7.155 L* POC ABG pCO2 POC ABG pO2 ABG pO2 94.6 H ABG HCO3 ABG O2 Saturation ABG Base Excess -6.5 L ABG Hemoglobin 13.1 L ABG Oxyhemoglobin ABG Sodium ABG Potassium ABG Chloride ABG Glucose Oxyhemoglobin 93.7 L Carboxyhemoglobin Sodium 155 H Potassium 5.1 H Chloride 120.5 H Carbon Dioxide BUN 90 H Creatinine 6.1 H D Glucose 238 H POC Glucose 207 H Hemoglobin A1c Lactic Acid Calcium 7.4 L Phosphorus Magnesium Ferritin Total Bilirubin AST ALT Lactate Dehydrogenase C-Reactive Protein Albumin Triglycerides Arterial Blood Glucose Arterial Blood Ionized Calcium Urine Creatinine Coronavirus (PCR) Crossmatch 02/01/21 02/01/21 02/02/21 17:10 23:47 04:04 WBC RBC 3.02 L Hgb 9.8 L Hct 30.7 L MCV 102 H MCH MCHC RDW 15.6 H Plt Count Lymph % (Auto) 4.2 L Lymph # (Auto) 0.3 L Seg Neutrophils % Seg Neuts % (Manual) Lymphocytes % (Manual) Monocytes % (Manual) Nucleated RBC % Seg Neutrophils # Seg Neutrophils # Man Lymphocytes # (Manual) Monocytes # (Manual) Eosinophils # (Manual) INR D-Dimer ABG pH POC ABG pCO2 POC ABG pO2 ABG pO2 ABG HCO3 ABG O2 Saturation ABG Base Excess ABG Hemoglobin ABG Oxyhemoglobin ABG Sodium ABG Potassium ABG Chloride ABG Glucose Oxyhemoglobin Carboxyhemoglobin Sodium Potassium Chloride Carbon Dioxide BUN Creatinine Glucose POC Glucose 238 H 235 H Hemoglobin A1c Lactic Acid Calcium Phosphorus Magnesium Ferritin Total Bilirubin AST ALT Lactate Dehydrogenase C-Reactive Protein Albumin Triglycerides Arterial Blood Glucose Arterial Blood Ionized Calcium Urine Creatinine Coronavirus (PCR) Crossmatch 02/02/21 02/02/21 02/02/21 05:18 05:35 11:28 WBC RBC Hgb Hct MCV MCH MCHC RDW Plt Count Lymph % (Auto) Lymph # (Auto) Seg Neutrophils % Seg Neuts % (Manual) Lymphocytes % (Manual) Monocytes % (Manual) Nucleated RBC % Seg Neutrophils # Seg Neutrophils # Man Lymphocytes # (Manual) Monocytes # (Manual) Eosinophils # (Manual) INR D-Dimer ABG pH 7.195 L* POC ABG pCO2 POC ABG pO2 ABG pO2 72.5 L ABG HCO3 ABG O2 Saturation 91.2 L ABG Base Excess -5.3 L ABG Hemoglobin 6.0 L ABG Oxyhemoglobin ABG Sodium ABG Potassium ABG Chloride ABG Glucose Oxyhemoglobin 89.1 L Carboxyhemoglobin Sodium Potassium Chloride 110.4 H Carbon Dioxide BUN 92 H Creatinine Glucose POC Glucose 239 H Hemoglobin A1c Lactic Acid Calcium Phosphorus Magnesium Ferritin Total Bilirubin AST ALT Lactate Dehydrogenase C-Reactive Protein Albumin Triglycerides Arterial Blood Glucose Arterial Blood Ionized Calcium Urine Creatinine Coronavirus (PCR) Crossmatch 02/02/21 02/02/21 02/02/21 11:53 16:00 18:04 WBC RBC Hgb Hct MCV MCH MCHC RDW Plt Count Lymph % (Auto) Lymph # (Auto) Seg Neutrophils % Seg Neuts % (Manual) Lymphocytes % (Manual) Monocytes % (Manual) Nucleated RBC % Seg Neutrophils # Seg Neutrophils # Man Lymphocytes # (Manual) Monocytes # (Manual) Eosinophils # (Manual) INR D-Dimer ABG pH POC ABG pCO2 POC ABG pO2 ABG pO2 ABG HCO3 ABG O2 Saturation ABG Base Excess ABG Hemoglobin ABG Oxyhemoglobin ABG Sodium ABG Potassium ABG Chloride ABG Glucose Oxyhemoglobin Carboxyhemoglobin Sodium Potassium Chloride Carbon Dioxide BUN Creatinine Glucose POC Glucose 248 H 199 H Hemoglobin A1c 6.3 H Lactic Acid Calcium Phosphorus Magnesium Ferritin Total Bilirubin AST ALT Lactate Dehydrogenase C-Reactive Protein Albumin Triglycerides Arterial Blood Glucose Arterial Blood Ionized Calcium Urine Creatinine Coronavirus (PCR) Crossmatch 02/02/21 02/03/21 02/03/21 23:31 03:12 04:10 WBC RBC 3.06 L Hgb 9.7 L Hct 30.4 L MCV 99 H MCH MCHC RDW 15.3 H Plt Count Lymph % (Auto) 6.1 L Lymph # (Auto) 0.5 L Seg Neutrophils % 86.1 H Seg Neuts % (Manual) Lymphocytes % (Manual) Monocytes % (Manual) Nucleated RBC % Seg Neutrophils # Seg Neutrophils # Man Lymphocytes # (Manual) Monocytes # (Manual) Eosinophils # (Manual) INR D-Dimer ABG pH 7.199 L POC ABG pCO2 48.3 H POC ABG pO2 68.3 L ABG pO2 ABG HCO3 ABG O2 Saturation ABG Base Excess ABG Hemoglobin 10.2 L ABG Oxyhemoglobin 89.2 L ABG Sodium 155.0 H ABG Potassium 4.6 H ABG Chloride 121.0 H ABG Glucose 166 H Oxyhemoglobin Carboxyhemoglobin 0.3 L Sodium Potassium Chloride Carbon Dioxide BUN Creatinine Glucose POC Glucose 200 H Hemoglobin A1c Lactic Acid Calcium Phosphorus Magnesium Ferritin Total Bilirubin AST ALT Lactate Dehydrogenase C-Reactive Protein Albumin Triglycerides Arterial Blood Glucose 166 H Arterial Blood Ionized Calcium 4.1 L Urine Creatinine Coronavirus (PCR) Crossmatch 02/03/21 02/03/21 02/03/21 04:10 05:34 11:51 WBC RBC Hgb Hct MCV MCH MCHC RDW Plt Count Lymph % (Auto) Lymph # (Auto) Seg Neutrophils % Seg Neuts % (Manual) Lymphocytes % (Manual) Monocytes % (Manual) Nucleated RBC % Seg Neutrophils # Seg Neutrophils # Man Lymphocytes # (Manual) Monocytes # (Manual) Eosinophils # (Manual) INR D-Dimer ABG pH POC ABG pCO2 POC ABG pO2 ABG pO2 ABG HCO3 ABG O2 Saturation ABG Base Excess ABG Hemoglobin ABG Oxyhemoglobin ABG Sodium ABG Potassium ABG Chloride ABG Glucose Oxyhemoglobin Carboxyhemoglobin Sodium 154 H D Potassium Chloride 116.7 H Carbon Dioxide 20 L BUN 130 H Creatinine 9.2 H D Glucose 160 H POC Glucose 130 H 154 H Hemoglobin A1c Lactic Acid Calcium 6.7 L Phosphorus 8.60 H Magnesium Ferritin Total Bilirubin AST ALT Lactate Dehydrogenase C-Reactive Protein Albumin Triglycerides Arterial Blood Glucose Arterial Blood Ionized Calcium Urine Creatinine Coronavirus (PCR) Crossmatch 02/03/21 02/03/21 02/04/21 16:49 23:22 03:48 WBC RBC Hgb Hct MCV MCH MCHC RDW Plt Count Lymph % (Auto) Lymph # (Auto) Seg Neutrophils % Seg Neuts % (Manual) Lymphocytes % (Manual) Monocytes % (Manual) Nucleated RBC % Seg Neutrophils # Seg Neutrophils # Man Lymphocytes # (Manual) Monocytes # (Manual) Eosinophils # (Manual) INR D-Dimer ABG pH 7.201 L POC ABG pCO2 54.5 H POC ABG pO2 74.0 L ABG pO2 ABG HCO3 ABG O2 Saturation ABG Base Excess ABG Hemoglobin 9.7 L ABG Oxyhemoglobin 91.1 L ABG Sodium 146.2 H ABG Potassium ABG Chloride 114.0 H ABG Glucose 155 H Oxyhemoglobin Carboxyhemoglobin Sodium Potassium Chloride Carbon Dioxide BUN Creatinine Glucose POC Glucose 164 H 152 H Hemoglobin A1c Lactic Acid Calcium Phosphorus Magnesium Ferritin Total Bilirubin AST ALT Lactate Dehydrogenase C-Reactive Protein Albumin Triglycerides Arterial Blood Glucose 155 H Arterial Blood Ionized Calcium 3.9 L Urine Creatinine Coronavirus (PCR) Crossmatch 02/04/21 02/04/21 02/04/21 04:45 04:45 04:45 WBC RBC 2.75 L Hgb 9.1 L Hct 26.9 L MCV 98 H MCH 33 H MCHC RDW Plt Count Lymph % (Auto) 6.8 L Lymph # (Auto) 0.5 L Seg Neutrophils % 87.2 H Seg Neuts % (Manual) Lymphocytes % (Manual) Monocytes % (Manual) Nucleated RBC % Seg Neutrophils # Seg Neutrophils # Man Lymphocytes # (Manual) Monocytes # (Manual) Eosinophils # (Manual) INR D-Dimer ABG pH POC ABG pCO2 POC ABG pO2 ABG pO2 ABG HCO3 ABG O2 Saturation ABG Base Excess ABG Hemoglobin ABG Oxyhemoglobin ABG Sodium ABG Potassium ABG Chloride ABG Glucose Oxyhemoglobin Carboxyhemoglobin Sodium 149 H Potassium Chloride 111.5 H Carbon Dioxide BUN 99 H Creatinine 8.5 H Glucose 139 H POC Glucose Hemoglobin A1c Lactic Acid Calcium 6.8 L Phosphorus 8.40 H Magnesium Ferritin Total Bilirubin AST ALT Lactate Dehydrogenase C-Reactive Protein Albumin Triglycerides Arterial Blood Glucose Arterial Blood Ionized Calcium Urine Creatinine Coronavirus (PCR) Crossmatch 02/04/21 02/04/21 02/04/21 06:05 11:44 18:00 WBC RBC Hgb Hct MCV MCH MCHC RDW Plt Count Lymph % (Auto) Lymph # (Auto) Seg Neutrophils % Seg Neuts % (Manual) Lymphocytes % (Manual) Monocytes % (Manual) Nucleated RBC % Seg Neutrophils # Seg Neutrophils # Man Lymphocytes # (Manual) Monocytes # (Manual) Eosinophils # (Manual) INR D-Dimer ABG pH POC ABG pCO2 POC ABG pO2 ABG pO2 ABG HCO3 ABG O2 Saturation ABG Base Excess ABG Hemoglobin ABG Oxyhemoglobin ABG Sodium ABG Potassium ABG Chloride ABG Glucose Oxyhemoglobin Carboxyhemoglobin Sodium Potassium Chloride Carbon Dioxide BUN Creatinine Glucose POC Glucose 138 H 129 H 163 H Hemoglobin A1c Lactic Acid Calcium Phosphorus Magnesium Ferritin Total Bilirubin AST ALT Lactate Dehydrogenase C-Reactive Protein Albumin Triglycerides Arterial Blood Glucose Arterial Blood Ionized Calcium Urine Creatinine Coronavirus (PCR) Crossmatch 02/04/21 02/05/21 02/05/21 23:48 01:50 01:50 WBC RBC 2.43 L Hgb 8.3 L Hct 23.6 L MCV 97 H MCH 34 H MCHC 35 H RDW Plt Count 137 L Lymph % (Auto) 8.4 L Lymph # (Auto) 0.6 L Seg Neutrophils % 86.1 H Seg Neuts % (Manual) Lymphocytes % (Manual) Monocytes % (Manual) Nucleated RBC % Seg Neutrophils # Seg Neutrophils # Man Lymphocytes # (Manual) Monocytes # (Manual) Eosinophils # (Manual) INR D-Dimer ABG pH POC ABG pCO2 POC ABG pO2 ABG pO2 ABG HCO3 ABG O2 Saturation ABG Base Excess ABG Hemoglobin ABG Oxyhemoglobin ABG Sodium ABG Potassium ABG Chloride ABG Glucose Oxyhemoglobin Carboxyhemoglobin Sodium Potassium Chloride Carbon Dioxide BUN Creatinine Glucose POC Glucose 157 H Hemoglobin A1c Lactic Acid Calcium Phosphorus 5.60 H D Magnesium Ferritin Total Bilirubin AST ALT Lactate Dehydrogenase C-Reactive Protein Albumin Triglycerides Arterial Blood Glucose Arterial Blood Ionized Calcium Urine Creatinine Coronavirus (PCR) Crossmatch 02/05/21 02/05/21 02/05/21 03:44 05:27 09:15 WBC RBC Hgb Hct MCV MCH MCHC RDW Plt Count Lymph % (Auto) Lymph # (Auto) Seg Neutrophils % Seg Neuts % (Manual) Lymphocytes % (Manual) Monocytes % (Manual) Nucleated RBC % Seg Neutrophils # Seg Neutrophils # Man Lymphocytes # (Manual) Monocytes # (Manual) Eosinophils # (Manual) INR D-Dimer ABG pH 7.202 L POC ABG pCO2 63.7 H POC ABG pO2 69.0 L ABG pO2 ABG HCO3 ABG O2 Saturation ABG Base Excess ABG Hemoglobin 9.4 L ABG Oxyhemoglobin ABG Sodium ABG Potassium ABG Chloride 108.0 H ABG Glucose 186 H Oxyhemoglobin Carboxyhemoglobin Sodium Potassium Chloride Carbon Dioxide BUN 78 H Creatinine 8.0 H Glucose 163 H POC Glucose 157 H Hemoglobin A1c Lactic Acid Calcium 6.3 L Phosphorus Magnesium Ferritin Total Bilirubin AST ALT Lactate Dehydrogenase C-Reactive Protein Albumin Triglycerides Arterial Blood Glucose 186 H Arterial Blood Ionized Calcium 3.9 L Urine Creatinine Coronavirus (PCR) Crossmatch 02/05/21 02/05/21 02/05/21 11:47 17:39 23:40 WBC RBC Hgb Hct MCV MCH MCHC RDW Plt Count Lymph % (Auto) Lymph # (Auto) Seg Neutrophils % Seg Neuts % (Manual) Lymphocytes % (Manual) Monocytes % (Manual) Nucleated RBC % Seg Neutrophils # Seg Neutrophils # Man Lymphocytes # (Manual) Monocytes # (Manual) Eosinophils # (Manual) INR D-Dimer ABG pH 7.273 L POC ABG pCO2 62.1 H POC ABG pO2 72.0 L ABG pO2 ABG HCO3 ABG O2 Saturation ABG Base Excess ABG Hemoglobin 9.1 L ABG Oxyhemoglobin 91.3 L ABG Sodium ABG Potassium 3.1 L ABG Chloride ABG Glucose 125 H Oxyhemoglobin Carboxyhemoglobin Sodium Potassium Chloride Carbon Dioxide BUN Creatinine Glucose POC Glucose 126 H 126 H Hemoglobin A1c Lactic Acid Calcium Phosphorus Magnesium Ferritin Total Bilirubin AST ALT Lactate Dehydrogenase C-Reactive Protein Albumin Triglycerides Arterial Blood Glucose 125 H Arterial Blood Ionized Calcium 4.0 L Urine Creatinine Coronavirus (PCR) Crossmatch 02/06/21 02/06/21 02/06/21 04:30 04:57 09:45 WBC RBC Hgb Hct MCV MCH MCHC RDW Plt Count Lymph % (Auto) Lymph # (Auto) Seg Neutrophils % Seg Neuts % (Manual) Lymphocytes % (Manual) Monocytes % (Manual) Nucleated RBC % Seg Neutrophils # Seg Neutrophils # Man Lymphocytes # (Manual) Monocytes # (Manual) Eosinophils # (Manual) INR D-Dimer ABG pH 7.159 L 7.138 L* POC ABG pCO2 76.3 H POC ABG pO2 66.9 L ABG pO2 ABG HCO3 ABG O2 Saturation 93.4 L ABG Base Excess -6.0 L ABG Hemoglobin 11.2 L 11.7 L ABG Oxyhemoglobin 88.2 L ABG Sodium ABG Potassium ABG Chloride ABG Glucose 134 H Oxyhemoglobin 91.2 L Carboxyhemoglobin Sodium Potassium Chloride Carbon Dioxide BUN Creatinine Glucose POC Glucose 124 H Hemoglobin A1c Lactic Acid Calcium Phosphorus Magnesium Ferritin Total Bilirubin AST ALT Lactate Dehydrogenase C-Reactive Protein Albumin Triglycerides Arterial Blood Glucose 134 H Arterial Blood Ionized Calcium 3.9 L Urine Creatinine Coronavirus (PCR) Crossmatch 02/06/21 02/06/21 02/06/21 11:11 17:00 17:00 WBC RBC Hgb Hct MCV MCH MCHC RDW Plt Count Lymph % (Auto) Lymph # (Auto) Seg Neutrophils % Seg Neuts % (Manual) Lymphocytes % (Manual) Monocytes % (Manual) Nucleated RBC % Seg Neutrophils # Seg Neutrophils # Man Lymphocytes # (Manual) Monocytes # (Manual) Eosinophils # (Manual) INR D-Dimer ABG pH 7.158 L* POC ABG pCO2 POC ABG pO2 ABG pO2 109.8 H ABG HCO3 28.7 H ABG O2 Saturation ABG Base Excess -2.5 L ABG Hemoglobin ABG Oxyhemoglobin ABG Sodium ABG Potassium ABG Chloride ABG Glucose Oxyhemoglobin 94.5 L Carboxyhemoglobin Sodium Potassium Chloride Carbon Dioxide BUN Creatinine Glucose POC Glucose 120 H Hemoglobin A1c Lactic Acid Calcium Phosphorus Magnesium Ferritin Total Bilirubin AST ALT Lactate Dehydrogenase C-Reactive Protein Albumin Triglycerides 503 H Arterial Blood Glucose Arterial Blood Ionized Calcium Urine Creatinine Coronavirus (PCR) Crossmatch 02/06/21 02/06/21 02/06/21 17:28 20:16 Unknown WBC 13.5 H RBC 2.98 L Hgb 9.3 L Hct 28.6 L MCV 96 H MCH MCHC RDW Plt Count Lymph % (Auto) Lymph # (Auto) Seg Neutrophils % Seg Neuts % (Manual) 87.0 H Lymphocytes % (Manual) 7.0 L Monocytes % (Manual) Nucleated RBC % Seg Neutrophils # Seg Neutrophils # Man 11.7 H Lymphocytes # (Manual) 0.9 L Monocytes # (Manual) Eosinophils # (Manual) 0.5 H INR D-Dimer ABG pH POC ABG pCO2 POC ABG pO2 ABG pO2 ABG HCO3 ABG O2 Saturation ABG Base Excess ABG Hemoglobin ABG Oxyhemoglobin ABG Sodium ABG Potassium ABG Chloride ABG Glucose Oxyhemoglobin Carboxyhemoglobin Sodium Potassium Chloride Carbon Dioxide BUN Creatinine Glucose POC Glucose 147 H 164 H Hemoglobin A1c Lactic Acid Calcium Phosphorus Magnesium Ferritin Total Bilirubin AST ALT Lactate Dehydrogenase C-Reactive Protein Albumin Triglycerides Arterial Blood Glucose Arterial Blood Ionized Calcium Urine Creatinine Coronavirus (PCR) Crossmatch 02/06/21 02/07/21 02/07/21 Unknown 01:21 04:00 WBC 12.0 H RBC 2.61 L Hgb 8.2 L Hct 24.5 L MCV MCH MCHC RDW Plt Count Lymph % (Auto) 8.9 L Lymph # (Auto) 1.1 L Seg Neutrophils % 86.3 H Seg Neuts % (Manual) Lymphocytes % (Manual) Monocytes % (Manual) Nucleated RBC % Seg Neutrophils # 10.3 H Seg Neutrophils # Man Lymphocytes # (Manual) Monocytes # (Manual) Eosinophils # (Manual) INR D-Dimer ABG pH POC ABG pCO2 POC ABG pO2 ABG pO2 ABG HCO3 ABG O2 Saturation ABG Base Excess ABG Hemoglobin ABG Oxyhemoglobin ABG Sodium ABG Potassium ABG Chloride ABG Glucose Oxyhemoglobin Carboxyhemoglobin Sodium Potassium 3.5 L Chloride Carbon Dioxide BUN 58 H Creatinine 6.6 H Glucose 107 H POC Glucose 173 H Hemoglobin A1c Lactic Acid Calcium 6.7 L Phosphorus 8.00 H D Magnesium Ferritin Total Bilirubin AST ALT Lactate Dehydrogenase C-Reactive Protein Albumin Triglycerides Arterial Blood Glucose Arterial Blood Ionized Calcium Urine Creatinine Coronavirus (PCR) Crossmatch 02/07/21 02/07/21 02/07/21 04:00 04:45 11:49 WBC RBC Hgb Hct MCV MCH MCHC RDW Plt Count Lymph % (Auto) Lymph # (Auto) Seg Neutrophils % Seg Neuts % (Manual) Lymphocytes % (Manual) Monocytes % (Manual) Nucleated RBC % Seg Neutrophils # Seg Neutrophils # Man Lymphocytes # (Manual) Monocytes # (Manual) Eosinophils # (Manual) INR D-Dimer ABG pH 7.287 L POC ABG pCO2 64.8 H POC ABG pO2 74.0 L ABG pO2 ABG HCO3 ABG O2 Saturation ABG Base Excess ABG Hemoglobin 9.1 L ABG Oxyhemoglobin 92.0 L ABG Sodium ABG Potassium 2.8 L ABG Chloride ABG Glucose 226 H Oxyhemoglobin Carboxyhemoglobin Sodium Potassium Chloride Carbon Dioxide BUN Creatinine Glucose POC Glucose 170 H Hemoglobin A1c Lactic Acid Calcium Phosphorus 5.50 H D Magnesium Ferritin Total Bilirubin AST ALT Lactate Dehydrogenase C-Reactive Protein Albumin Triglycerides Arterial Blood Glucose 226 H Arterial Blood Ionized Calcium 3.7 L Urine Creatinine Coronavirus (PCR) Crossmatch 02/07/21 02/07/21 02/07/21 13:48 17:45 23:02 WBC RBC Hgb Hct MCV MCH MCHC RDW Plt Count Lymph % (Auto) Lymph # (Auto) Seg Neutrophils % Seg Neuts % (Manual) Lymphocytes % (Manual) Monocytes % (Manual) Nucleated RBC % Seg Neutrophils # Seg Neutrophils # Man Lymphocytes # (Manual) Monocytes # (Manual) Eosinophils # (Manual) INR D-Dimer ABG pH POC ABG pCO2 POC ABG pO2 ABG pO2 ABG HCO3 ABG O2 Saturation ABG Base Excess ABG Hemoglobin ABG Oxyhemoglobin ABG Sodium ABG Potassium ABG Chloride ABG Glucose Oxyhemoglobin Carboxyhemoglobin Sodium 136 L Potassium 2.6 L* D Chloride 95.1 L Carbon Dioxide 33 H D BUN 30 H Creatinine 3.6 H Glucose 184 H POC Glucose 172 H 172 H Hemoglobin A1c Lactic Acid Calcium 6.9 L Phosphorus Magnesium Ferritin Total Bilirubin AST ALT Lactate Dehydrogenase C-Reactive Protein Albumin Triglycerides Arterial Blood Glucose Arterial Blood Ionized Calcium Urine Creatinine Coronavirus (PCR) Crossmatch 02/08/21 02/08/21 02/08/21 05:22 06:00 06:00 WBC RBC 2.21 L Hgb 7.2 L Hct 21.0 L MCV 95 H MCH MCHC RDW Plt Count Lymph % (Auto) Lymph # (Auto) Seg Neutrophils % Seg Neuts % (Manual) 87.0 H Lymphocytes % (Manual) 4.0 L Monocytes % (Manual) Nucleated RBC % Seg Neutrophils # Seg Neutrophils # Man 8.5 H Lymphocytes # (Manual) 0.4 L Monocytes # (Manual) Eosinophils # (Manual) INR D-Dimer ABG pH POC ABG pCO2 POC ABG pO2 ABG pO2 ABG HCO3 ABG O2 Saturation ABG Base Excess ABG Hemoglobin ABG Oxyhemoglobin ABG Sodium ABG Potassium ABG Chloride ABG Glucose Oxyhemoglobin Carboxyhemoglobin Sodium 136 L Potassium 2.4 L* Chloride 93.1 L Carbon Dioxide 36 H BUN 43 H Creatinine 5.4 H Glucose 167 H POC Glucose 162 H Hemoglobin A1c Lactic Acid Calcium 6.3 L Phosphorus Magnesium Ferritin Total Bilirubin AST ALT Lactate Dehydrogenase C-Reactive Protein Albumin Triglycerides Arterial Blood Glucose Arterial Blood Ionized Calcium Urine Creatinine Coronavirus (PCR) Crossmatch 02/08/21 02/08/21 02/08/21 11:44 17:53 18:56 WBC RBC Hgb Hct MCV MCH MCHC RDW Plt Count Lymph % (Auto) Lymph # (Auto) Seg Neutrophils % Seg Neuts % (Manual) Lymphocytes % (Manual) Monocytes % (Manual) Nucleated RBC % Seg Neutrophils # Seg Neutrophils # Man Lymphocytes # (Manual) Monocytes # (Manual) Eosinophils # (Manual) INR D-Dimer ABG pH POC ABG pCO2 POC ABG pO2 ABG pO2 ABG HCO3 ABG O2 Saturation ABG Base Excess ABG Hemoglobin ABG Oxyhemoglobin ABG Sodium ABG Potassium ABG Chloride ABG Glucose Oxyhemoglobin Carboxyhemoglobin Sodium Potassium 2.9 L* D Chloride Carbon Dioxide BUN Creatinine Glucose POC Glucose 164 H 154 H Hemoglobin A1c Lactic Acid Calcium Phosphorus Magnesium Ferritin Total Bilirubin AST ALT Lactate Dehydrogenase C-Reactive Protein Albumin Triglycerides Arterial Blood Glucose Arterial Blood Ionized Calcium Urine Creatinine Coronavirus (PCR) Crossmatch 02/08/21 02/08/21 02/09/21 23:24 23:58 03:21 WBC RBC Hgb Hct MCV MCH MCHC RDW Plt Count Lymph % (Auto) Lymph # (Auto) Seg Neutrophils % Seg Neuts % (Manual) Lymphocytes % (Manual) Monocytes % (Manual) Nucleated RBC % Seg Neutrophils # Seg Neutrophils # Man Lymphocytes # (Manual) Monocytes # (Manual) Eosinophils # (Manual) INR D-Dimer ABG pH 7.319 L POC ABG pCO2 63.3 H 68.3 H POC ABG pO2 71.2 L 76.5 L ABG pO2 ABG HCO3 ABG O2 Saturation ABG Base Excess ABG Hemoglobin 8.2 L 7.0 L ABG Oxyhemoglobin 91.8 L 92.2 L ABG Sodium 134.6 L 133.0 L ABG Potassium 2.3 L 3.1 L ABG Chloride 96.0 L 95.0 L ABG Glucose 184 H 154 H Oxyhemoglobin Carboxyhemoglobin Sodium Potassium Chloride Carbon Dioxide BUN Creatinine Glucose POC Glucose 152 H Hemoglobin A1c Lactic Acid Calcium Phosphorus Magnesium Ferritin Total Bilirubin AST ALT Lactate Dehydrogenase C-Reactive Protein Albumin Triglycerides Arterial Blood Glucose 184 H 154 H Arterial Blood Ionized Calcium 3.6 L 3.5 L Urine Creatinine Coronavirus (PCR) Crossmatch 02/09/21 02/09/21 02/09/21 05:10 05:10 06:04 WBC RBC 2.14 L Hgb 7.0 L Hct 20.5 L MCV 96 H MCH 33 H MCHC RDW Plt Count Lymph % (Auto) Lymph # (Auto) Seg Neutrophils % Seg Neuts % (Manual) 82.0 H Lymphocytes % (Manual) 9.0 L Monocytes % (Manual) Nucleated RBC % 1.0 H Seg Neutrophils # Seg Neutrophils # Man 8.9 H Lymphocytes # (Manual) 1.0 L Monocytes # (Manual) Eosinophils # (Manual) INR D-Dimer ABG pH POC ABG pCO2 POC ABG pO2 ABG pO2 ABG HCO3 ABG O2 Saturation ABG Base Excess ABG Hemoglobin ABG Oxyhemoglobin ABG Sodium ABG Potassium ABG Chloride ABG Glucose Oxyhemoglobin Carboxyhemoglobin Sodium 135 L Potassium 3.2 L Chloride 91.0 L Carbon Dioxide 32 H BUN 54 H Creatinine 6.6 H Glucose 163 H POC Glucose 149 H Hemoglobin A1c Lactic Acid Calcium 6.2 L Phosphorus Magnesium Ferritin Total Bilirubin AST ALT Lactate Dehydrogenase C-Reactive Protein Albumin Triglycerides Arterial Blood Glucose Arterial Blood Ionized Calcium Urine Creatinine Coronavirus (PCR) Crossmatch 02/09/21 02/09/21 02/09/21 12:02 13:32 13:40 WBC RBC Hgb Hct MCV MCH MCHC RDW Plt Count Lymph % (Auto) Lymph # (Auto) Seg Neutrophils % Seg Neuts % (Manual) Lymphocytes % (Manual) Monocytes % (Manual) Nucleated RBC % Seg Neutrophils # Seg Neutrophils # Man Lymphocytes # (Manual) Monocytes # (Manual) Eosinophils # (Manual) INR D-Dimer ABG pH POC ABG pCO2 POC ABG pO2 ABG pO2 ABG HCO3 ABG O2 Saturation ABG Base Excess ABG Hemoglobin ABG Oxyhemoglobin ABG Sodium ABG Potassium ABG Chloride ABG Glucose Oxyhemoglobin Carboxyhemoglobin Sodium Potassium Chloride Carbon Dioxide BUN Creatinine Glucose POC Glucose 147 H Hemoglobin A1c Lactic Acid Calcium Phosphorus Magnesium Ferritin Total Bilirubin AST ALT Lactate Dehydrogenase C-Reactive Protein Albumin Triglycerides 250 H Arterial Blood Glucose Arterial Blood Ionized Calcium Urine Creatinine Coronavirus (PCR) Crossmatch See Detail 02/09/21 02/09/21 02/10/21 18:06 23:42 04:00 WBC RBC Hgb Hct MCV MCH MCHC RDW Plt Count Lymph % (Auto) Lymph # (Auto) Seg Neutrophils % Seg Neuts % (Manual) Lymphocytes % (Manual) Monocytes % (Manual) Nucleated RBC % Seg Neutrophils # Seg Neutrophils # Man Lymphocytes # (Manual) Monocytes # (Manual) Eosinophils # (Manual) INR D-Dimer ABG pH POC ABG pCO2 65.8 H POC ABG pO2 68.0 L ABG pO2 ABG HCO3 ABG O2 Saturation ABG Base Excess ABG Hemoglobin 8.3 L ABG Oxyhemoglobin ABG Sodium 132.4 L ABG Potassium 2.9 L ABG Chloride 92.0 L ABG Glucose 174 H Oxyhemoglobin Carboxyhemoglobin Sodium Potassium Chloride Carbon Dioxide BUN Creatinine Glucose POC Glucose 152 H 147 H Hemoglobin A1c Lactic Acid Calcium Phosphorus Magnesium Ferritin Total Bilirubin AST ALT Lactate Dehydrogenase C-Reactive Protein Albumin Triglycerides Arterial Blood Glucose 174 H Arterial Blood Ionized Calcium 3.4 L Urine Creatinine Coronavirus (PCR) Crossmatch 02/10/21 02/10/21 02/10/21 05:32 11:29 14:08 WBC 12.5 H RBC 2.14 L Hgb 6.6 L Hct 20.2 L MCV MCH MCHC RDW Plt Count Lymph % (Auto) Lymph # (Auto) Seg Neutrophils % Seg Neuts % (Manual) Lymphocytes % (Manual) Monocytes % (Manual) Nucleated RBC % Seg Neutrophils # Seg Neutrophils # Man Lymphocytes # (Manual) Monocytes # (Manual) Eosinophils # (Manual) INR D-Dimer ABG pH POC ABG pCO2 POC ABG pO2 ABG pO2 ABG HCO3 ABG O2 Saturation ABG Base Excess ABG Hemoglobin ABG Oxyhemoglobin ABG Sodium ABG Potassium ABG Chloride ABG Glucose Oxyhemoglobin Carboxyhemoglobin Sodium Potassium Chloride Carbon Dioxide BUN Creatinine Glucose POC Glucose 167 H 147 H Hemoglobin A1c Lactic Acid Calcium Phosphorus Magnesium Ferritin Total Bilirubin AST ALT Lactate Dehydrogenase C-Reactive Protein Albumin Triglycerides Arterial Blood Glucose Arterial Blood Ionized Calcium Urine Creatinine Coronavirus (PCR) Crossmatch 02/10/21 02/10/21 02/10/21 14:08 18:11 22:32 WBC RBC Hgb 6.4 L Hct 19.1 L* MCV MCH MCHC RDW Plt Count Lymph % (Auto) Lymph # (Auto) Seg Neutrophils % Seg Neuts % (Manual) Lymphocytes % (Manual) Monocytes % (Manual) Nucleated RBC % Seg Neutrophils # Seg Neutrophils # Man Lymphocytes # (Manual) Monocytes # (Manual) Eosinophils # (Manual) INR D-Dimer ABG pH POC ABG pCO2 POC ABG pO2 ABG pO2 ABG HCO3 ABG O2 Saturation ABG Base Excess ABG Hemoglobin ABG Oxyhemoglobin ABG Sodium ABG Potassium ABG Chloride ABG Glucose Oxyhemoglobin Carboxyhemoglobin Sodium 136 L Potassium 2.9 L* Chloride 90.2 L Carbon Dioxide 33 H BUN 42 H Creatinine 7.5 H Glucose 155 H POC Glucose 173 H Hemoglobin A1c Lactic Acid Calcium 6.1 L Phosphorus Magnesium Ferritin Total Bilirubin AST ALT Lactate Dehydrogenase C-Reactive Protein Albumin Triglycerides Arterial Blood Glucose Arterial Blood Ionized Calcium Urine Creatinine Coronavirus (PCR) Crossmatch 02/11/21 02/11/21 02/11/21 00:28 04:05 04:30 WBC RBC Hgb Hct MCV MCH MCHC RDW Plt Count Lymph % (Auto) Lymph # (Auto) Seg Neutrophils % Seg Neuts % (Manual) Lymphocytes % (Manual) Monocytes % (Manual) Nucleated RBC % Seg Neutrophils # Seg Neutrophils # Man Lymphocytes # (Manual) Monocytes # (Manual) Eosinophils # (Manual) INR D-Dimer ABG pH 7.307 L POC ABG pCO2 72.2 H POC ABG pO2 72.3 L ABG pO2 ABG HCO3 ABG O2 Saturation ABG Base Excess ABG Hemoglobin 8.2 L ABG Oxyhemoglobin ABG Sodium 132.3 L ABG Potassium 3.2 L ABG Chloride 91.0 L ABG Glucose 197 H Oxyhemoglobin Carboxyhemoglobin Sodium 135 L Potassium 3.3 L Chloride 87.1 L Carbon Dioxide 36 H BUN 71 H Creatinine 7.9 H Glucose 263 H POC Glucose 192 H Hemoglobin A1c Lactic Acid Calcium 6.2 L Phosphorus Magnesium Ferritin Total Bilirubin AST ALT Lactate Dehydrogenase C-Reactive Protein Albumin Triglycerides Arterial Blood Glucose 197 H Arterial Blood Ionized Calcium 3.3 L Urine Creatinine Coronavirus (PCR) Crossmatch 02/11/21 02/11/21 02/11/21 04:30 05:47 08:27 WBC RBC 2.22 L Hgb 7.2 L Hct 21.0 L MCV MCH MCHC RDW Plt Count Lymph % (Auto) 8.7 L Lymph # (Auto) 0.9 L Seg Neutrophils % 85.5 H Seg Neuts % (Manual) Lymphocytes % (Manual) Monocytes % (Manual) Nucleated RBC % Seg Neutrophils # 9.2 H Seg Neutrophils # Man Lymphocytes # (Manual) Monocytes # (Manual) Eosinophils # (Manual) INR 1.17 H D-Dimer 1930.92 H ABG pH POC ABG pCO2 POC ABG pO2 ABG pO2 ABG HCO3 ABG O2 Saturation ABG Base Excess ABG Hemoglobin ABG Oxyhemoglobin ABG Sodium ABG Potassium ABG Chloride ABG Glucose Oxyhemoglobin Carboxyhemoglobin Sodium Potassium Chloride Carbon Dioxide BUN Creatinine Glucose POC Glucose 189 H Hemoglobin A1c Lactic Acid Calcium Phosphorus Magnesium Ferritin Total Bilirubin AST ALT Lactate Dehydrogenase C-Reactive Protein Albumin Triglycerides Arterial Blood Glucose Arterial Blood Ionized Calcium Urine Creatinine Coronavirus (PCR) Crossmatch 02/11/21 02/11/21 02/11/21 09:00 09:00 13:18 WBC RBC Hgb Hct MCV MCH MCHC RDW Plt Count Lymph % (Auto) Lymph # (Auto) Seg Neutrophils % Seg Neuts % (Manual) Lymphocytes % (Manual) Monocytes % (Manual) Nucleated RBC % Seg Neutrophils # Seg Neutrophils # Man Lymphocytes # (Manual) Monocytes # (Manual) Eosinophils # (Manual) INR D-Dimer ABG pH POC ABG pCO2 POC ABG pO2 ABG pO2 ABG HCO3 ABG O2 Saturation ABG Base Excess ABG Hemoglobin ABG Oxyhemoglobin ABG Sodium ABG Potassium ABG Chloride ABG Glucose Oxyhemoglobin Carboxyhemoglobin Sodium Potassium Chloride Carbon Dioxide BUN Creatinine Glucose 126 H POC Glucose 160 H Hemoglobin A1c Lactic Acid Calcium Phosphorus Magnesium Ferritin 1253.0 H Total Bilirubin AST ALT Lactate Dehydrogenase 649 H C-Reactive Protein 12.60 H Albumin Triglycerides Arterial Blood Glucose Arterial Blood Ionized Calcium Urine Creatinine Coronavirus (PCR) Crossmatch 02/11/21 02/11/21 02/11/21 14:30 16:59 22:34 WBC RBC Hgb 7.1 L 6.7 L Hct 20.5 L 19.9 L* MCV MCH MCHC RDW Plt Count Lymph % (Auto) Lymph # (Auto) Seg Neutrophils % Seg Neuts % (Manual) Lymphocytes % (Manual) Monocytes % (Manual) Nucleated RBC % Seg Neutrophils # Seg Neutrophils # Man Lymphocytes # (Manual) Monocytes # (Manual) Eosinophils # (Manual) INR D-Dimer ABG pH POC ABG pCO2 POC ABG pO2 ABG pO2 ABG HCO3 ABG O2 Saturation ABG Base Excess ABG Hemoglobin ABG Oxyhemoglobin ABG Sodium ABG Potassium ABG Chloride ABG Glucose Oxyhemoglobin Carboxyhemoglobin Sodium Potassium Chloride Carbon Dioxide BUN Creatinine Glucose POC Glucose 151 H Hemoglobin A1c Lactic Acid Calcium Phosphorus Magnesium Ferritin Total Bilirubin AST ALT Lactate Dehydrogenase C-Reactive Protein Albumin Triglycerides Arterial Blood Glucose Arterial Blood Ionized Calcium Urine Creatinine Coronavirus (PCR) Crossmatch 02/11/21 02/12/21 02/12/21 23:42 04:41 05:19 WBC RBC Hgb Hct MCV MCH MCHC RDW Plt Count Lymph % (Auto) Lymph # (Auto) Seg Neutrophils % Seg Neuts % (Manual) Lymphocytes % (Manual) Monocytes % (Manual) Nucleated RBC % Seg Neutrophils # Seg Neutrophils # Man Lymphocytes # (Manual) Monocytes # (Manual) Eosinophils # (Manual) INR D-Dimer ABG pH POC ABG pCO2 POC ABG pO2 ABG pO2 69.0 L ABG HCO3 32.5 H ABG O2 Saturation ABG Base Excess 7.7 H ABG Hemoglobin 5.1 L ABG Oxyhemoglobin ABG Sodium ABG Potassium ABG Chloride ABG Glucose Oxyhemoglobin 94.7 L Carboxyhemoglobin Sodium Potassium Chloride Carbon Dioxide BUN Creatinine Glucose POC Glucose 165 H 153 H Hemoglobin A1c Lactic Acid Calcium Phosphorus Magnesium Ferritin Total Bilirubin AST ALT Lactate Dehydrogenase C-Reactive Protein Albumin Triglycerides Arterial Blood Glucose Arterial Blood Ionized Calcium Urine Creatinine Coronavirus (PCR) Crossmatch 02/12/21 02/12/21 02/12/21 06:35 06:35 08:40 WBC RBC 2.21 L Hgb 7.2 L Hct 20.7 L MCV MCH 33 H MCHC 35 H RDW Plt Count Lymph % (Auto) Lymph # (Auto) Seg Neutrophils % Seg Neuts % (Manual) Lymphocytes % (Manual) Monocytes % (Manual) Nucleated RBC % Seg Neutrophils # Seg Neutrophils # Man Lymphocytes # (Manual) Monocytes # (Manual) Eosinophils # (Manual) INR D-Dimer ABG pH POC ABG pCO2 POC ABG pO2 ABG pO2 ABG HCO3 ABG O2 Saturation ABG Base Excess ABG Hemoglobin ABG Oxyhemoglobin ABG Sodium ABG Potassium ABG Chloride ABG Glucose Oxyhemoglobin Carboxyhemoglobin Sodium 135 L Potassium 3.4 L Chloride 91.8 L Carbon Dioxide 36 H BUN 57 H Creatinine 6.8 H Glucose 163 H POC Glucose Hemoglobin A1c Lactic Acid Calcium 7.0 L Phosphorus Magnesium 1.60 L Ferritin Total Bilirubin AST ALT Lactate Dehydrogenase C-Reactive Protein Albumin Triglycerides Arterial Blood Glucose Arterial Blood Ionized Calcium Urine Creatinine Coronavirus (PCR) Crossmatch 02/12/21 02/12/21 02/12/21 10:45 12:04 17:19 WBC RBC Hgb Hct MCV MCH MCHC RDW Plt Count Lymph % (Auto) Lymph # (Auto) Seg Neutrophils % Seg Neuts % (Manual) Lymphocytes % (Manual) Monocytes % (Manual) Nucleated RBC % Seg Neutrophils # Seg Neutrophils # Man Lymphocytes # (Manual) Monocytes # (Manual) Eosinophils # (Manual) INR D-Dimer ABG pH POC ABG pCO2 POC ABG pO2 ABG pO2 ABG HCO3 ABG O2 Saturation ABG Base Excess ABG Hemoglobin ABG Oxyhemoglobin ABG Sodium ABG Potassium ABG Chloride ABG Glucose Oxyhemoglobin Carboxyhemoglobin Sodium Potassium Chloride Carbon Dioxide BUN Creatinine Glucose POC Glucose 165 H 165 H Hemoglobin A1c Lactic Acid Calcium Phosphorus Magnesium Ferritin Total Bilirubin AST ALT Lactate Dehydrogenase C-Reactive Protein Albumin Triglycerides 182 H Arterial Blood Glucose Arterial Blood Ionized Calcium Urine Creatinine Coronavirus (PCR) Crossmatch 02/12/21 02/13/21 02/13/21 23:18 05:00 05:36 WBC RBC Hgb Hct MCV MCH MCHC RDW Plt Count Lymph % (Auto) Lymph # (Auto) Seg Neutrophils % Seg Neuts % (Manual) Lymphocytes % (Manual) Monocytes % (Manual) Nucleated RBC % Seg Neutrophils # Seg Neutrophils # Man Lymphocytes # (Manual) Monocytes # (Manual) Eosinophils # (Manual) INR D-Dimer ABG pH POC ABG pCO2 60.8 H POC ABG pO2 76.4 L ABG pO2 ABG HCO3 ABG O2 Saturation ABG Base Excess ABG Hemoglobin 7.4 L ABG Oxyhemoglobin ABG Sodium 133.2 L ABG Potassium 3.3 L ABG Chloride 96.0 L ABG Glucose 168 H Oxyhemoglobin Carboxyhemoglobin Sodium Potassium Chloride Carbon Dioxide BUN Creatinine Glucose POC Glucose 163 H 151 H Hemoglobin A1c Lactic Acid Calcium Phosphorus Magnesium Ferritin Total Bilirubin AST ALT Lactate Dehydrogenase C-Reactive Protein Albumin Triglycerides Arterial Blood Glucose 168 H Arterial Blood Ionized Calcium 4.3 L Urine Creatinine Coronavirus (PCR) Crossmatch 02/13/21 02/13/21 02/13/21 06:40 06:40 06:40 WBC RBC 2.19 L Hgb 7.0 L Hct 20.8 L MCV 95 H MCH MCHC RDW Plt Count Lymph % (Auto) Lymph # (Auto) Seg Neutrophils % Seg Neuts % (Manual) Lymphocytes % (Manual) Monocytes % (Manual) Nucleated RBC % Seg Neutrophils # Seg Neutrophils # Man Lymphocytes # (Manual) Monocytes # (Manual) Eosinophils # (Manual) INR D-Dimer ABG pH POC ABG pCO2 POC ABG pO2 ABG pO2 ABG HCO3 ABG O2 Saturation ABG Base Excess ABG Hemoglobin ABG Oxyhemoglobin ABG Sodium ABG Potassium ABG Chloride ABG Glucose Oxyhemoglobin Carboxyhemoglobin Sodium 135 L Potassium 3.4 L Chloride 93.0 L Carbon Dioxide 32 H BUN 46 H Creatinine 5.8 H Glucose 148 H POC Glucose Hemoglobin A1c Lactic Acid Calcium 7.9 L Phosphorus Magnesium Ferritin Total Bilirubin AST ALT Lactate Dehydrogenase C-Reactive Protein 16.80 H Albumin Triglycerides Arterial Blood Glucose Arterial Blood Ionized Calcium Urine Creatinine Coronavirus (PCR) Crossmatch 02/13/21 02/13/21 02/13/21 06:40 07:38 07:38 WBC RBC Hgb Hct MCV MCH MCHC RDW Plt Count Lymph % (Auto) Lymph # (Auto) Seg Neutrophils % Seg Neuts % (Manual) Lymphocytes % (Manual) Monocytes % (Manual) Nucleated RBC % Seg Neutrophils # Seg Neutrophils # Man Lymphocytes # (Manual) Monocytes # (Manual) Eosinophils # (Manual) INR D-Dimer 1722.16 H ABG pH POC ABG pCO2 POC ABG pO2 ABG pO2 ABG HCO3 ABG O2 Saturation ABG Base Excess ABG Hemoglobin ABG Oxyhemoglobin ABG Sodium ABG Potassium ABG Chloride ABG Glucose Oxyhemoglobin Carboxyhemoglobin Sodium Potassium Chloride Carbon Dioxide BUN Creatinine Glucose POC Glucose Hemoglobin A1c Lactic Acid Calcium Phosphorus Magnesium 1.60 L Ferritin 976.5 H Total Bilirubin AST ALT Lactate Dehydrogenase C-Reactive Protein Albumin Triglycerides Arterial Blood Glucose Arterial Blood Ionized Calcium Urine Creatinine Coronavirus (PCR) Crossmatch 02/13/21 02/13/21 02/13/21 12:24 16:57 23:32 WBC RBC Hgb Hct MCV MCH MCHC RDW Plt Count Lymph % (Auto) Lymph # (Auto) Seg Neutrophils % Seg Neuts % (Manual) Lymphocytes % (Manual) Monocytes % (Manual) Nucleated RBC % Seg Neutrophils # Seg Neutrophils # Man Lymphocytes # (Manual) Monocytes # (Manual) Eosinophils # (Manual) INR D-Dimer ABG pH POC ABG pCO2 POC ABG pO2 ABG pO2 ABG HCO3 ABG O2 Saturation ABG Base Excess ABG Hemoglobin ABG Oxyhemoglobin ABG Sodium ABG Potassium ABG Chloride ABG Glucose Oxyhemoglobin Carboxyhemoglobin Sodium Potassium Chloride Carbon Dioxide BUN Creatinine Glucose POC Glucose 141 H 156 H 161 H Hemoglobin A1c Lactic Acid Calcium Phosphorus Magnesium Ferritin Total Bilirubin AST ALT Lactate Dehydrogenase C-Reactive Protein Albumin Triglycerides Arterial Blood Glucose Arterial Blood Ionized Calcium Urine Creatinine Coronavirus (PCR) Crossmatch 02/14/21 02/14/21 02/14/21 04:00 05:41 11:00 WBC RBC 2.14 L Hgb 6.9 L Hct 20.7 L MCV 97 H MCH 33 H MCHC RDW Plt Count Lymph % (Auto) Lymph # (Auto) Seg Neutrophils % Seg Neuts % (Manual) Lymphocytes % (Manual) Monocytes % (Manual) Nucleated RBC % Seg Neutrophils # Seg Neutrophils # Man Lymphocytes # (Manual) Monocytes # (Manual) Eosinophils # (Manual) INR D-Dimer ABG pH POC ABG pCO2 POC ABG pO2 ABG pO2 ABG HCO3 ABG O2 Saturation ABG Base Excess ABG Hemoglobin ABG Oxyhemoglobin ABG Sodium ABG Potassium ABG Chloride ABG Glucose Oxyhemoglobin Carboxyhemoglobin Sodium Potassium Chloride Carbon Dioxide BUN Creatinine Glucose POC Glucose 143 H Hemoglobin A1c Lactic Acid Calcium Phosphorus Magnesium Ferritin Total Bilirubin AST ALT Lactate Dehydrogenase C-Reactive Protein Albumin Triglycerides Arterial Blood Glucose Arterial Blood Ionized Calcium Urine Creatinine Coronavirus (PCR) Crossmatch See Detail 02/14/21 02/14/21 02/14/21 11:51 18:08 23:41 WBC RBC Hgb Hct MCV MCH MCHC RDW Plt Count Lymph % (Auto) Lymph # (Auto) Seg Neutrophils % Seg Neuts % (Manual) Lymphocytes % (Manual) Monocytes % (Manual) Nucleated RBC % Seg Neutrophils # Seg Neutrophils # Man Lymphocytes # (Manual) Monocytes # (Manual) Eosinophils # (Manual) INR D-Dimer ABG pH POC ABG pCO2 POC ABG pO2 ABG pO2 ABG HCO3 ABG O2 Saturation ABG Base Excess ABG Hemoglobin ABG Oxyhemoglobin ABG Sodium ABG Potassium ABG Chloride ABG Glucose Oxyhemoglobin Carboxyhemoglobin Sodium Potassium Chloride Carbon Dioxide BUN Creatinine Glucose POC Glucose 113 H 123 H 120 H Hemoglobin A1c Lactic Acid Calcium Phosphorus Magnesium Ferritin Total Bilirubin AST ALT Lactate Dehydrogenase C-Reactive Protein Albumin Triglycerides Arterial Blood Glucose Arterial Blood Ionized Calcium Urine Creatinine Coronavirus (PCR) Crossmatch 02/14/21 02/15/21 02/15/21 Unknown 05:00 05:00 WBC RBC Hgb Hct MCV MCH MCHC RDW Plt Count Lymph % (Auto) Lymph # (Auto) Seg Neutrophils % Seg Neuts % (Manual) Lymphocytes % (Manual) Monocytes % (Manual) Nucleated RBC % Seg Neutrophils # Seg Neutrophils # Man Lymphocytes # (Manual) Monocytes # (Manual) Eosinophils # (Manual) INR D-Dimer ABG pH POC ABG pCO2 53.4 H POC ABG pO2 61.8 L ABG pO2 ABG HCO3 ABG O2 Saturation ABG Base Excess ABG Hemoglobin 7.7 L ABG Oxyhemoglobin 88.8 L ABG Sodium ABG Potassium ABG Chloride ABG Glucose 143 H Oxyhemoglobin Carboxyhemoglobin 1.6 H Sodium Potassium Chloride 96.9 L Carbon Dioxide 33 H 31 H BUN 40 H 38 H Creatinine 5.2 H 4.8 H Glucose 152 H 132 H POC Glucose Hemoglobin A1c Lactic Acid Calcium 7.9 L Phosphorus Magnesium Ferritin Total Bilirubin AST ALT Lactate Dehydrogenase C-Reactive Protein Albumin Triglycerides Arterial Blood Glucose 143 H Arterial Blood Ionized Calcium Urine Creatinine Coronavirus (PCR) Crossmatch 02/15/21 02/15/21 02/15/21 05:00 05:27 12:05 WBC RBC 2.30 L Hgb 7.1 L Hct 22.1 L MCV 96 H MCH MCHC RDW 15.7 H Plt Count Lymph % (Auto) 11.0 L Lymph # (Auto) 1.1 L Seg Neutrophils % 83.0 H Seg Neuts % (Manual) Lymphocytes % (Manual) Monocytes % (Manual) Nucleated RBC % Seg Neutrophils # 8.6 H Seg Neutrophils # Man Lymphocytes # (Manual) Monocytes # (Manual) Eosinophils # (Manual) INR D-Dimer ABG pH POC ABG pCO2 POC ABG pO2 ABG pO2 ABG HCO3 ABG O2 Saturation ABG Base Excess ABG Hemoglobin ABG Oxyhemoglobin ABG Sodium ABG Potassium ABG Chloride ABG Glucose Oxyhemoglobin Carboxyhemoglobin Sodium Potassium Chloride Carbon Dioxide BUN Creatinine Glucose POC Glucose 133 H 123 H Hemoglobin A1c Lactic Acid Calcium Phosphorus Magnesium Ferritin Total Bilirubin AST ALT Lactate Dehydrogenase C-Reactive Protein Albumin Triglycerides Arterial Blood Glucose Arterial Blood Ionized Calcium Urine Creatinine Coronavirus (PCR) Crossmatch 02/15/21 02/15/21 02/16/21 17:08 23:52 03:44 WBC RBC Hgb Hct MCV MCH MCHC RDW Plt Count Lymph % (Auto) Lymph # (Auto) Seg Neutrophils % Seg Neuts % (Manual) Lymphocytes % (Manual) Monocytes % (Manual) Nucleated RBC % Seg Neutrophils # Seg Neutrophils # Man Lymphocytes # (Manual) Monocytes # (Manual) Eosinophils # (Manual) INR D-Dimer ABG pH 7.307 L POC ABG pCO2 59.5 H POC ABG pO2 63.2 L ABG pO2 ABG HCO3 ABG O2 Saturation ABG Base Excess ABG Hemoglobin 9.3 L ABG Oxyhemoglobin ABG Sodium ABG Potassium ABG Chloride ABG Glucose 148 H Oxyhemoglobin Carboxyhemoglobin Sodium Potassium Chloride Carbon Dioxide BUN Creatinine Glucose POC Glucose 129 H 136 H Hemoglobin A1c Lactic Acid Calcium Phosphorus Magnesium Ferritin Total Bilirubin AST ALT Lactate Dehydrogenase C-Reactive Protein Albumin Triglycerides Arterial Blood Glucose 148 H Arterial Blood Ionized Calcium Urine Creatinine Coronavirus (PCR) Crossmatch 02/16/21 02/16/21 02/16/21 05:26 06:00 12:14 WBC RBC Hgb Hct MCV MCH MCHC RDW Plt Count Lymph % (Auto) Lymph # (Auto) Seg Neutrophils % Seg Neuts % (Manual) Lymphocytes % (Manual) Monocytes % (Manual) Nucleated RBC % Seg Neutrophils # Seg Neutrophils # Man Lymphocytes # (Manual) Monocytes # (Manual) Eosinophils # (Manual) INR D-Dimer ABG pH POC ABG pCO2 POC ABG pO2 ABG pO2 ABG HCO3 ABG O2 Saturation ABG Base Excess ABG Hemoglobin ABG Oxyhemoglobin ABG Sodium ABG Potassium ABG Chloride ABG Glucose Oxyhemoglobin Carboxyhemoglobin Sodium Potassium Chloride Carbon Dioxide BUN 52 H Creatinine 6.0 H Glucose 138 H POC Glucose 135 H 128 H Hemoglobin A1c Lactic Acid Calcium Phosphorus Magnesium Ferritin Total Bilirubin AST ALT Lactate Dehydrogenase C-Reactive Protein Albumin Triglycerides Arterial Blood Glucose Arterial Blood Ionized Calcium Urine Creatinine Coronavirus (PCR) Crossmatch 02/16/21 02/16/21 02/16/21 17:09 17:09 17:09 WBC RBC Hgb Hct MCV MCH MCHC RDW Plt Count Lymph % (Auto) Lymph # (Auto) Seg Neutrophils % Seg Neuts % (Manual) Lymphocytes % (Manual) Monocytes % (Manual) Nucleated RBC % Seg Neutrophils # Seg Neutrophils # Man Lymphocytes # (Manual) Monocytes # (Manual) Eosinophils # (Manual) INR D-Dimer 4256.08 H ABG pH POC ABG pCO2 POC ABG pO2 ABG pO2 ABG HCO3 ABG O2 Saturation ABG Base Excess ABG Hemoglobin ABG Oxyhemoglobin ABG Sodium ABG Potassium ABG Chloride ABG Glucose Oxyhemoglobin Carboxyhemoglobin Sodium Potassium Chloride Carbon Dioxide BUN Creatinine Glucose POC Glucose Hemoglobin A1c Lactic Acid Calcium Phosphorus Magnesium Ferritin 980.6 H Total Bilirubin AST ALT Lactate Dehydrogenase 441 H C-Reactive Protein 20.20 H Albumin Triglycerides Arterial Blood Glucose Arterial Blood Ionized Calcium Urine Creatinine Coronavirus (PCR) Crossmatch 02/16/21 02/16/21 02/16/21 17:25 23:16 Unknown WBC RBC 2.19 L Hgb 7.1 L Hct 21.3 L MCV 98 H MCH 33 H MCHC RDW 16.0 H Plt Count Lymph % (Auto) Lymph # (Auto) Seg Neutrophils % Seg Neuts % (Manual) 85.0 H Lymphocytes % (Manual) 6.0 L Monocytes % (Manual) Nucleated RBC % 4.0 H Seg Neutrophils # Seg Neutrophils # Man Lymphocytes # (Manual) 0.5 L Monocytes # (Manual) Eosinophils # (Manual) INR D-Dimer ABG pH POC ABG pCO2 POC ABG pO2 ABG pO2 ABG HCO3 ABG O2 Saturation ABG Base Excess ABG Hemoglobin ABG Oxyhemoglobin ABG Sodium ABG Potassium ABG Chloride ABG Glucose Oxyhemoglobin Carboxyhemoglobin Sodium Potassium Chloride Carbon Dioxide BUN Creatinine Glucose POC Glucose 146 H 150 H Hemoglobin A1c Lactic Acid Calcium Phosphorus Magnesium Ferritin Total Bilirubin AST ALT Lactate Dehydrogenase C-Reactive Protein Albumin Triglycerides Arterial Blood Glucose Arterial Blood Ionized Calcium Urine Creatinine Coronavirus (PCR) Crossmatch 02/17/21 02/17/21 02/17/21 04:00 04:14 04:14 WBC RBC Hgb Hct MCV MCH MCHC RDW Plt Count Lymph % (Auto) Lymph # (Auto) Seg Neutrophils % Seg Neuts % (Manual) Lymphocytes % (Manual) Monocytes % (Manual) Nucleated RBC % Seg Neutrophils # Seg Neutrophils # Man Lymphocytes # (Manual) Monocytes # (Manual) Eosinophils # (Manual) INR D-Dimer 3183.35 H ABG pH 7.293 L POC ABG pCO2 59.5 H POC ABG pO2 68.1 L ABG pO2 ABG HCO3 ABG O2 Saturation ABG Base Excess ABG Hemoglobin 7.7 L ABG Oxyhemoglobin ABG Sodium 133.4 L ABG Potassium ABG Chloride ABG Glucose 143 H Oxyhemoglobin Carboxyhemoglobin Sodium 136 L Potassium Chloride 97.3 L Carbon Dioxide BUN 49 H Creatinine 5.3 H Glucose 139 H POC Glucose Hemoglobin A1c Lactic Acid Calcium Phosphorus Magnesium Ferritin Total Bilirubin AST ALT Lactate Dehydrogenase C-Reactive Protein Albumin Triglycerides Arterial Blood Glucose 143 H Arterial Blood Ionized Calcium Urine Creatinine Coronavirus (PCR) Crossmatch 02/17/21 02/17/21 02/17/21 04:14 04:14 04:14 WBC RBC 2.14 L Hgb 6.9 L Hct 21.0 L MCV 98 H MCH MCHC RDW 15.8 H Plt Count Lymph % (Auto) Lymph # (Auto) Seg Neutrophils % Seg Neuts % (Manual) Lymphocytes % (Manual) Monocytes % (Manual) Nucleated RBC % Seg Neutrophils # Seg Neutrophils # Man Lymphocytes # (Manual) Monocytes # (Manual) Eosinophils # (Manual) INR D-Dimer ABG pH POC ABG pCO2 POC ABG pO2 ABG pO2 ABG HCO3 ABG O2 Saturation ABG Base Excess ABG Hemoglobin ABG Oxyhemoglobin ABG Sodium ABG Potassium ABG Chloride ABG Glucose Oxyhemoglobin Carboxyhemoglobin Sodium Potassium Chloride Carbon Dioxide BUN Creatinine Glucose POC Glucose Hemoglobin A1c Lactic Acid Calcium Phosphorus Magnesium Ferritin 894.0 H Total Bilirubin AST ALT Lactate Dehydrogenase 399 H C-Reactive Protein 22.10 H Albumin Triglycerides Arterial Blood Glucose Arterial Blood Ionized Calcium Urine Creatinine Coronavirus (PCR) Crossmatch 02/17/21 02/17/21 02/17/21 06:06 07:45 12:25 WBC RBC Hgb 7.6 L Hct 22.8 L MCV MCH MCHC RDW Plt Count Lymph % (Auto) Lymph # (Auto) Seg Neutrophils % Seg Neuts % (Manual) Lymphocytes % (Manual) Monocytes % (Manual) Nucleated RBC % Seg Neutrophils # Seg Neutrophils # Man Lymphocytes # (Manual) Monocytes # (Manual) Eosinophils # (Manual) INR D-Dimer ABG pH POC ABG pCO2 POC ABG pO2 ABG pO2 ABG HCO3 ABG O2 Saturation ABG Base Excess ABG Hemoglobin ABG Oxyhemoglobin ABG Sodium ABG Potassium ABG Chloride ABG Glucose Oxyhemoglobin Carboxyhemoglobin Sodium Potassium Chloride Carbon Dioxide BUN Creatinine Glucose POC Glucose 134 H Hemoglobin A1c Lactic Acid Calcium Phosphorus Magnesium Ferritin Total Bilirubin AST ALT Lactate Dehydrogenase C-Reactive Protein Albumin Triglycerides Arterial Blood Glucose Arterial Blood Ionized Calcium Urine Creatinine Coronavirus (PCR) Crossmatch See Detail 02/17/21 02/17/21 02/17/21 12:35 17:56 23:34 WBC RBC Hgb Hct MCV MCH MCHC RDW Plt Count Lymph % (Auto) Lymph # (Auto) Seg Neutrophils % Seg Neuts % (Manual) Lymphocytes % (Manual) Monocytes % (Manual) Nucleated RBC % Seg Neutrophils # Seg Neutrophils # Man Lymphocytes # (Manual) Monocytes # (Manual) Eosinophils # (Manual) INR D-Dimer ABG pH POC ABG pCO2 POC ABG pO2 ABG pO2 ABG HCO3 ABG O2 Saturation ABG Base Excess ABG Hemoglobin ABG Oxyhemoglobin ABG Sodium ABG Potassium ABG Chloride ABG Glucose Oxyhemoglobin Carboxyhemoglobin Sodium Potassium Chloride Carbon Dioxide BUN Creatinine Glucose POC Glucose 114 H 128 H 120 H Hemoglobin A1c Lactic Acid Calcium Phosphorus Magnesium Ferritin Total Bilirubin AST ALT Lactate Dehydrogenase C-Reactive Protein Albumin Triglycerides Arterial Blood Glucose Arterial Blood Ionized Calcium Urine Creatinine Coronavirus (PCR) Crossmatch 02/18/21 02/18/21 02/18/21 04:03 04:55 05:02 WBC RBC 2.40 L Hgb 7.5 L Hct 23.1 L MCV 96 H MCH MCHC RDW 16.8 H Plt Count Lymph % (Auto) Lymph # (Auto) Seg Neutrophils % Seg Neuts % (Manual) Lymphocytes % (Manual) Monocytes % (Manual) Nucleated RBC % Seg Neutrophils # Seg Neutrophils # Man Lymphocytes # (Manual) Monocytes # (Manual) Eosinophils # (Manual) INR D-Dimer ABG pH 7.219 L POC ABG pCO2 58.7 H POC ABG pO2 64.2 L ABG pO2 ABG HCO3 ABG O2 Saturation ABG Base Excess ABG Hemoglobin ABG Oxyhemoglobin ABG Sodium 130.5 L ABG Potassium ABG Chloride ABG Glucose 147 H Oxyhemoglobin Carboxyhemoglobin Sodium 134 L Potassium Chloride 97.9 L Carbon Dioxide BUN 64 H Creatinine 6.5 H Glucose 135 H POC Glucose Hemoglobin A1c Lactic Acid Calcium 8.0 L Phosphorus Magnesium Ferritin Total Bilirubin AST ALT Lactate Dehydrogenase C-Reactive Protein Albumin Triglycerides Arterial Blood Glucose 147 H Arterial Blood Ionized Calcium Urine Creatinine Coronavirus (PCR) Crossmatch 02/18/21 02/18/21 02/18/21 05:27 10:00 11:51 WBC RBC Hgb Hct MCV MCH MCHC RDW Plt Count Lymph % (Auto) Lymph # (Auto) Seg Neutrophils % Seg Neuts % (Manual) Lymphocytes % (Manual) Monocytes % (Manual) Nucleated RBC % Seg Neutrophils # Seg Neutrophils # Man Lymphocytes # (Manual) Monocytes # (Manual) Eosinophils # (Manual) INR D-Dimer ABG pH POC ABG pCO2 POC ABG pO2 ABG pO2 ABG HCO3 ABG O2 Saturation ABG Base Excess ABG Hemoglobin ABG Oxyhemoglobin ABG Sodium ABG Potassium ABG Chloride ABG Glucose Oxyhemoglobin Carboxyhemoglobin Sodium Potassium Chloride Carbon Dioxide BUN Creatinine Glucose POC Glucose 130 H 123 H Hemoglobin A1c Lactic Acid Calcium Phosphorus Magnesium Ferritin Total Bilirubin AST ALT Lactate Dehydrogenase C-Reactive Protein Albumin Triglycerides Arterial Blood Glucose Arterial Blood Ionized Calcium Urine Creatinine Coronavirus (PCR) Positive A Crossmatch 02/18/21 02/18/21 02/19/21 18:10 23:35 05:00 WBC RBC Hgb Hct MCV MCH MCHC RDW Plt Count Lymph % (Auto) Lymph # (Auto) Seg Neutrophils % Seg Neuts % (Manual) Lymphocytes % (Manual) Monocytes % (Manual) Nucleated RBC % Seg Neutrophils # Seg Neutrophils # Man Lymphocytes # (Manual) Monocytes # (Manual) Eosinophils # (Manual) INR D-Dimer ABG pH 7.232 L POC ABG pCO2 64.3 H POC ABG pO2 ABG pO2 ABG HCO3 ABG O2 Saturation ABG Base Excess ABG Hemoglobin 8.1 L ABG Oxyhemoglobin ABG Sodium 133.5 L ABG Potassium ABG Chloride ABG Glucose 148 H Oxyhemoglobin Carboxyhemoglobin 1.6 H Sodium Potassium Chloride Carbon Dioxide BUN Creatinine Glucose POC Glucose 123 H 137 H Hemoglobin A1c Lactic Acid Calcium Phosphorus Magnesium Ferritin Total Bilirubin AST ALT Lactate Dehydrogenase C-Reactive Protein Albumin Triglycerides Arterial Blood Glucose 148 H Arterial Blood Ionized Calcium Urine Creatinine Coronavirus (PCR) Crossmatch 02/19/21 02/19/21 02/19/21 05:12 05:45 05:45 WBC RBC Hgb Hct MCV MCH MCHC RDW Plt Count Lymph % (Auto) Lymph # (Auto) Seg Neutrophils % Seg Neuts % (Manual) Lymphocytes % (Manual) Monocytes % (Manual) Nucleated RBC % Seg Neutrophils # Seg Neutrophils # Man Lymphocytes # (Manual) Monocytes # (Manual) Eosinophils # (Manual) INR D-Dimer 4840.82 H ABG pH POC ABG pCO2 POC ABG pO2 ABG pO2 ABG HCO3 ABG O2 Saturation ABG Base Excess ABG Hemoglobin ABG Oxyhemoglobin ABG Sodium ABG Potassium ABG Chloride ABG Glucose Oxyhemoglobin Carboxyhemoglobin Sodium 135 L Potassium Chloride 97.8 L Carbon Dioxide BUN 58 H Creatinine 5.6 H Glucose 140 H POC Glucose 134 H Hemoglobin A1c Lactic Acid Calcium Phosphorus Magnesium Ferritin Total Bilirubin AST ALT Lactate Dehydrogenase 345 H C-Reactive Protein 15.20 H Albumin Triglycerides 195 H Arterial Blood Glucose Arterial Blood Ionized Calcium Urine Creatinine Coronavirus (PCR) Crossmatch 02/19/21 02/19/21 02/19/21 05:45 12:00 17:48 WBC RBC Hgb Hct MCV MCH MCHC RDW Plt Count Lymph % (Auto) Lymph # (Auto) Seg Neutrophils % Seg Neuts % (Manual) Lymphocytes % (Manual) Monocytes % (Manual) Nucleated RBC % Seg Neutrophils # Seg Neutrophils # Man Lymphocytes # (Manual) Monocytes # (Manual) Eosinophils # (Manual) INR D-Dimer ABG pH POC ABG pCO2 POC ABG pO2 ABG pO2 ABG HCO3 ABG O2 Saturation ABG Base Excess ABG Hemoglobin ABG Oxyhemoglobin ABG Sodium ABG Potassium ABG Chloride ABG Glucose Oxyhemoglobin Carboxyhemoglobin Sodium Potassium Chloride Carbon Dioxide BUN Creatinine Glucose POC Glucose 122 H 119 H Hemoglobin A1c Lactic Acid Calcium Phosphorus Magnesium Ferritin 951.8 H Total Bilirubin AST ALT Lactate Dehydrogenase C-Reactive Protein Albumin Triglycerides Arterial Blood Glucose Arterial Blood Ionized Calcium Urine Creatinine Coronavirus (PCR) Crossmatch 02/20/21 02/20/21 02/20/21 03:20 04:00 11:48 WBC RBC Hgb Hct MCV MCH MCHC RDW Plt Count Lymph % (Auto) Lymph # (Auto) Seg Neutrophils % Seg Neuts % (Manual) Lymphocytes % (Manual) Monocytes % (Manual) Nucleated RBC % Seg Neutrophils # Seg Neutrophils # Man Lymphocytes # (Manual) Monocytes # (Manual) Eosinophils # (Manual) INR D-Dimer ABG pH 7.276 L POC ABG pCO2 57.3 H POC ABG pO2 71.0 L ABG pO2 ABG HCO3 ABG O2 Saturation ABG Base Excess ABG Hemoglobin 8.2 L ABG Oxyhemoglobin 91.9 L ABG Sodium 128.1 L ABG Potassium 4.8 H ABG Chloride ABG Glucose Oxyhemoglobin Carboxyhemoglobin 1.6 H Sodium 136 L Potassium Chloride Carbon Dioxide BUN 69 H Creatinine 6.4 H Glucose POC Glucose 131 H Hemoglobin A1c Lactic Acid Calcium 8.1 L Phosphorus Magnesium Ferritin Total Bilirubin AST ALT Lactate Dehydrogenase C-Reactive Protein Albumin Triglycerides Arterial Blood Glucose Arterial Blood Ionized Calcium 4.5 L Urine Creatinine Coronavirus (PCR) Crossmatch 02/20/21 02/20/21 02/21/21 18:05 23:28 02:53 WBC RBC Hgb Hct MCV MCH MCHC RDW Plt Count Lymph % (Auto) Lymph # (Auto) Seg Neutrophils % Seg Neuts % (Manual) Lymphocytes % (Manual) Monocytes % (Manual) Nucleated RBC % Seg Neutrophils # Seg Neutrophils # Man Lymphocytes # (Manual) Monocytes # (Manual) Eosinophils # (Manual) INR D-Dimer ABG pH 7.288 L POC ABG pCO2 52.7 H POC ABG pO2 81.5 L ABG pO2 ABG HCO3 ABG O2 Saturation ABG Base Excess ABG Hemoglobin 8.5 L ABG Oxyhemoglobin 93.6 L ABG Sodium 132.5 L ABG Potassium 4.6 H ABG Chloride ABG Glucose 106 H Oxyhemoglobin Carboxyhemoglobin 1.6 H Sodium Potassium Chloride Carbon Dioxide BUN Creatinine Glucose POC Glucose 114 H 118 H Hemoglobin A1c Lactic Acid Calcium Phosphorus Magnesium Ferritin Total Bilirubin AST ALT Lactate Dehydrogenase C-Reactive Protein Albumin Triglycerides Arterial Blood Glucose 106 H Arterial Blood Ionized Calcium 4.4 L Urine Creatinine Coronavirus (PCR) Crossmatch 02/21/21 02/21/21 02/21/21 05:29 11:42 16:35 WBC RBC Hgb Hct MCV MCH MCHC RDW Plt Count Lymph % (Auto) Lymph # (Auto) Seg Neutrophils % Seg Neuts % (Manual) Lymphocytes % (Manual) Monocytes % (Manual) Nucleated RBC % Seg Neutrophils # Seg Neutrophils # Man Lymphocytes # (Manual) Monocytes # (Manual) Eosinophils # (Manual) INR D-Dimer ABG pH POC ABG pCO2 POC ABG pO2 ABG pO2 ABG HCO3 ABG O2 Saturation ABG Base Excess ABG Hemoglobin ABG Oxyhemoglobin ABG Sodium ABG Potassium ABG Chloride ABG Glucose Oxyhemoglobin Carboxyhemoglobin Sodium Potassium 5.6 H Chloride 97.6 L Carbon Dioxide BUN 68 H Creatinine 5.7 H Glucose 160 H POC Glucose 111 H 131 H Hemoglobin A1c Lactic Acid Calcium 8.0 L Phosphorus 7.90 H Magnesium 2.60 H Ferritin Total Bilirubin AST ALT Lactate Dehydrogenase C-Reactive Protein Albumin Triglycerides Arterial Blood Glucose Arterial Blood Ionized Calcium Urine Creatinine Coronavirus (PCR) Crossmatch 02/21/21 02/22/21 02/22/21 17:17 00:04 04:22 WBC RBC Hgb Hct MCV MCH MCHC RDW Plt Count Lymph % (Auto) Lymph # (Auto) Seg Neutrophils % Seg Neuts % (Manual) Lymphocytes % (Manual) Monocytes % (Manual) Nucleated RBC % Seg Neutrophils # Seg Neutrophils # Man Lymphocytes # (Manual) Monocytes # (Manual) Eosinophils # (Manual) INR D-Dimer ABG pH 7.250 L POC ABG pCO2 60.1 H POC ABG pO2 57.6 L ABG pO2 ABG HCO3 ABG O2 Saturation ABG Base Excess ABG Hemoglobin 8.8 L ABG Oxyhemoglobin 87.0 L ABG Sodium 133.4 L ABG Potassium 5.1 H ABG Chloride ABG Glucose 124 H Oxyhemoglobin Carboxyhemoglobin Sodium Potassium Chloride Carbon Dioxide BUN Creatinine Glucose POC Glucose 135 H 121 H Hemoglobin A1c Lactic Acid Calcium Phosphorus Magnesium Ferritin Total Bilirubin AST ALT Lactate Dehydrogenase C-Reactive Protein Albumin Triglycerides Arterial Blood Glucose 124 H Arterial Blood Ionized Calcium Urine Creatinine Coronavirus (PCR) Crossmatch 02/22/21 02/22/21 02/22/21 05:33 09:41 09:41 WBC 13.2 H RBC 2.35 L Hgb 7.5 L Hct 22.7 L MCV 96 H MCH MCHC RDW 17.0 H Plt Count Lymph % (Auto) Lymph # (Auto) Seg Neutrophils % Seg Neuts % (Manual) 93.0 H Lymphocytes % (Manual) 4.0 L Monocytes % (Manual) Nucleated RBC % 1.0 H Seg Neutrophils # Seg Neutrophils # Man 12.3 H Lymphocytes # (Manual) 0.5 L Monocytes # (Manual) Eosinophils # (Manual) INR D-Dimer ABG pH POC ABG pCO2 POC ABG pO2 ABG pO2 ABG HCO3 ABG O2 Saturation ABG Base Excess ABG Hemoglobin ABG Oxyhemoglobin ABG Sodium ABG Potassium ABG Chloride ABG Glucose Oxyhemoglobin Carboxyhemoglobin Sodium Potassium 5.4 H Chloride Carbon Dioxide BUN 61 H Creatinine 5.5 H Glucose 117 H POC Glucose 114 H Hemoglobin A1c Lactic Acid Calcium 8.3 L Phosphorus Magnesium Ferritin Total Bilirubin AST ALT Lactate Dehydrogenase C-Reactive Protein Albumin Triglycerides Arterial Blood Glucose Arterial Blood Ionized Calcium Urine Creatinine Coronavirus (PCR) Crossmatch 02/22/21 02/22/21 02/23/21 12:08 17:06 04:00 WBC RBC Hgb Hct MCV MCH MCHC RDW Plt Count Lymph % (Auto) Lymph # (Auto) Seg Neutrophils % Seg Neuts % (Manual) Lymphocytes % (Manual) Monocytes % (Manual) Nucleated RBC % Seg Neutrophils # Seg Neutrophils # Man Lymphocytes # (Manual) Monocytes # (Manual) Eosinophils # (Manual) INR D-Dimer ABG pH 7.246 L POC ABG pCO2 POC ABG pO2 ABG pO2 119.4 H ABG HCO3 26.6 H ABG O2 Saturation ABG Base Excess ABG Hemoglobin 8.8 L ABG Oxyhemoglobin ABG Sodium ABG Potassium ABG Chloride ABG Glucose Oxyhemoglobin Carboxyhemoglobin Sodium Potassium Chloride Carbon Dioxide BUN Creatinine Glucose POC Glucose 133 H 114 H Hemoglobin A1c Lactic Acid Calcium Phosphorus Magnesium Ferritin Total Bilirubin AST ALT Lactate Dehydrogenase C-Reactive Protein Albumin Triglycerides Arterial Blood Glucose Arterial Blood Ionized Calcium Urine Creatinine Coronavirus (PCR) Crossmatch 02/23/21 02/23/21 02/24/21 06:20 11:42 03:43 WBC RBC Hgb Hct MCV MCH MCHC RDW Plt Count Lymph % (Auto) Lymph # (Auto) Seg Neutrophils % Seg Neuts % (Manual) Lymphocytes % (Manual) Monocytes % (Manual) Nucleated RBC % Seg Neutrophils # Seg Neutrophils # Man Lymphocytes # (Manual) Monocytes # (Manual) Eosinophils # (Manual) INR D-Dimer ABG pH 7.287 L POC ABG pCO2 54.7 H POC ABG pO2 ABG pO2 ABG HCO3 ABG O2 Saturation ABG Base Excess ABG Hemoglobin 8.5 L ABG Oxyhemoglobin ABG Sodium 135.6 L ABG Potassium ABG Chloride ABG Glucose 117 H Oxyhemoglobin Carboxyhemoglobin Sodium Potassium Chloride 97.6 L Carbon Dioxide BUN 79 H Creatinine 6.2 H Glucose POC Glucose 108 H Hemoglobin A1c Lactic Acid Calcium 8.3 L Phosphorus Magnesium Ferritin Total Bilirubin AST ALT Lactate Dehydrogenase C-Reactive Protein Albumin Triglycerides Arterial Blood Glucose 117 H Arterial Blood Ionized Calcium Urine Creatinine Coronavirus (PCR) Crossmatch 02/24/21 02/24/21 02/24/21 04:25 04:25 04:25 WBC 11.5 H RBC 2.47 L Hgb 7.7 L Hct 23.5 L MCV 95 H MCH MCHC RDW 16.7 H Plt Count Lymph % (Auto) Lymph # (Auto) Seg Neutrophils % Seg Neuts % (Manual) 82.0 H Lymphocytes % (Manual) 3.0 L Monocytes % (Manual) 11.0 H Nucleated RBC % Seg Neutrophils # Seg Neutrophils # Man 9.4 H Lymphocytes # (Manual) 0.3 L Monocytes # (Manual) 1.3 H Eosinophils # (Manual) INR D-Dimer 4695.21 H ABG pH POC ABG pCO2 POC ABG pO2 ABG pO2 ABG HCO3 ABG O2 Saturation ABG Base Excess ABG Hemoglobin ABG Oxyhemoglobin ABG Sodium ABG Potassium ABG Chloride ABG Glucose Oxyhemoglobin Carboxyhemoglobin Sodium Potassium Chloride Carbon Dioxide BUN 68 H Creatinine 4.9 H Glucose 113 H POC Glucose Hemoglobin A1c Lactic Acid Calcium Phosphorus Magnesium Ferritin Total Bilirubin AST ALT Lactate Dehydrogenase C-Reactive Protein 7.20 H Albumin Triglycerides Arterial Blood Glucose Arterial Blood Ionized Calcium Urine Creatinine Coronavirus (PCR) Crossmatch 02/24/21 02/24/21 02/24/21 04:25 05:01 11:12 WBC RBC Hgb Hct MCV MCH MCHC RDW Plt Count Lymph % (Auto) Lymph # (Auto) Seg Neutrophils % Seg Neuts % (Manual) Lymphocytes % (Manual) Monocytes % (Manual) Nucleated RBC % Seg Neutrophils # Seg Neutrophils # Man Lymphocytes # (Manual) Monocytes # (Manual) Eosinophils # (Manual) INR D-Dimer ABG pH POC ABG pCO2 POC ABG pO2 ABG pO2 ABG HCO3 ABG O2 Saturation ABG Base Excess ABG Hemoglobin ABG Oxyhemoglobin ABG Sodium ABG Potassium ABG Chloride ABG Glucose Oxyhemoglobin Carboxyhemoglobin Sodium Potassium Chloride Carbon Dioxide BUN Creatinine Glucose POC Glucose 116 H 112 H Hemoglobin A1c Lactic Acid Calcium Phosphorus Magnesium Ferritin 1116.0 H Total Bilirubin AST ALT Lactate Dehydrogenase C-Reactive Protein Albumin Triglycerides Arterial Blood Glucose Arterial Blood Ionized Calcium Urine Creatinine Coronavirus (PCR) Crossmatch 02/24/21 02/25/21 02/25/21 18:11 03:42 05:58 WBC RBC Hgb Hct MCV MCH MCHC RDW Plt Count Lymph % (Auto) Lymph # (Auto) Seg Neutrophils % Seg Neuts % (Manual) Lymphocytes % (Manual) Monocytes % (Manual) Nucleated RBC % Seg Neutrophils # Seg Neutrophils # Man Lymphocytes # (Manual) Monocytes # (Manual) Eosinophils # (Manual) INR D-Dimer ABG pH 7.287 L POC ABG pCO2 58.2 H POC ABG pO2 ABG pO2 ABG HCO3 ABG O2 Saturation ABG Base Excess ABG Hemoglobin 8.4 L ABG Oxyhemoglobin 93.7 L ABG Sodium ABG Potassium ABG Chloride ABG Glucose 104 H Oxyhemoglobin Carboxyhemoglobin Sodium Potassium Chloride Carbon Dioxide BUN Creatinine Glucose POC Glucose 109 H 109 H Hemoglobin A1c Lactic Acid Calcium Phosphorus Magnesium Ferritin Total Bilirubin AST ALT Lactate Dehydrogenase C-Reactive Protein Albumin Triglycerides Arterial Blood Glucose 104 H Arterial Blood Ionized Calcium 4.5 L Urine Creatinine Coronavirus (PCR) Crossmatch 02/25/21 02/25/21 02/25/21 09:03 13:47 16:50 WBC RBC Hgb Hct MCV MCH MCHC RDW Plt Count Lymph % (Auto) Lymph # (Auto) Seg Neutrophils % Seg Neuts % (Manual) Lymphocytes % (Manual) Monocytes % (Manual) Nucleated RBC % Seg Neutrophils # Seg Neutrophils # Man Lymphocytes # (Manual) Monocytes # (Manual) Eosinophils # (Manual) INR D-Dimer 6536.84 H ABG pH POC ABG pCO2 POC ABG pO2 ABG pO2 ABG HCO3 ABG O2 Saturation ABG Base Excess ABG Hemoglobin ABG Oxyhemoglobin ABG Sodium ABG Potassium ABG Chloride ABG Glucose Oxyhemoglobin Carboxyhemoglobin Sodium Potassium Chloride Carbon Dioxide BUN Creatinine Glucose POC Glucose 144 H 114 H Hemoglobin A1c Lactic Acid Calcium Phosphorus Magnesium Ferritin Total Bilirubin AST ALT Lactate Dehydrogenase C-Reactive Protein Albumin Triglycerides Arterial Blood Glucose Arterial Blood Ionized Calcium Urine Creatinine Coronavirus (PCR) Crossmatch 02/25/21 02/26/21 02/26/21 23:53 03:35 05:36 WBC RBC Hgb Hct MCV MCH MCHC RDW Plt Count Lymph % (Auto) Lymph # (Auto) Seg Neutrophils % Seg Neuts % (Manual) Lymphocytes % (Manual) Monocytes % (Manual) Nucleated RBC % Seg Neutrophils # Seg Neutrophils # Man Lymphocytes # (Manual) Monocytes # (Manual) Eosinophils # (Manual) INR D-Dimer ABG pH 7.179 L POC ABG pCO2 76.6 H POC ABG pO2 ABG pO2 ABG HCO3 ABG O2 Saturation ABG Base Excess ABG Hemoglobin 9.0 L ABG Oxyhemoglobin ABG Sodium 134.8 L ABG Potassium ABG Chloride ABG Glucose 118 H Oxyhemoglobin Carboxyhemoglobin Sodium Potassium Chloride Carbon Dioxide BUN Creatinine Glucose POC Glucose 110 H 113 H Hemoglobin A1c Lactic Acid Calcium Phosphorus Magnesium Ferritin Total Bilirubin AST ALT Lactate Dehydrogenase C-Reactive Protein Albumin Triglycerides Arterial Blood Glucose 118 H Arterial Blood Ionized Calcium Urine Creatinine Coronavirus (PCR) Crossmatch 02/26/21 02/26/21 02/26/21 05:48 05:48 05:48 WBC 11.4 H RBC 2.40 L Hgb 7.5 L Hct 23.2 L MCV 97 H MCH MCHC RDW 17.4 H Plt Count Lymph % (Auto) Lymph # (Auto) Seg Neutrophils % Seg Neuts % (Manual) Lymphocytes % (Manual) Monocytes % (Manual) Nucleated RBC % Seg Neutrophils # Seg Neutrophils # Man Lymphocytes # (Manual) Monocytes # (Manual) Eosinophils # (Manual) INR D-Dimer ABG pH POC ABG pCO2 POC ABG pO2 ABG pO2 ABG HCO3 ABG O2 Saturation ABG Base Excess ABG Hemoglobin ABG Oxyhemoglobin ABG Sodium ABG Potassium ABG Chloride ABG Glucose Oxyhemoglobin Carboxyhemoglobin Sodium Potassium Chloride Carbon Dioxide BUN 72 H Creatinine 4.5 H Glucose 112 H POC Glucose Hemoglobin A1c Lactic Acid Calcium 7.7 L Phosphorus Magnesium Ferritin 867.8 H Total Bilirubin AST ALT Lactate Dehydrogenase C-Reactive Protein 5.90 H Albumin Triglycerides Arterial Blood Glucose Arterial Blood Ionized Calcium Urine Creatinine Coronavirus (PCR) Crossmatch 02/26/21 02/26/21 02/26/21 08:00 11:29 18:13 WBC RBC Hgb Hct MCV MCH MCHC RDW Plt Count Lymph % (Auto) Lymph # (Auto) Seg Neutrophils % Seg Neuts % (Manual) Lymphocytes % (Manual) Monocytes % (Manual) Nucleated RBC % Seg Neutrophils # Seg Neutrophils # Man Lymphocytes # (Manual) Monocytes # (Manual) Eosinophils # (Manual) INR D-Dimer ABG pH 7.228 L POC ABG pCO2 70.2 H POC ABG pO2 79.7 L ABG pO2 ABG HCO3 ABG O2 Saturation ABG Base Excess ABG Hemoglobin 7.6 L ABG Oxyhemoglobin 93.2 L ABG Sodium 135.7 L ABG Potassium ABG Chloride ABG Glucose 119 H Oxyhemoglobin Carboxyhemoglobin Sodium Potassium Chloride Carbon Dioxide BUN Creatinine Glucose POC Glucose 110 H 115 H Hemoglobin A1c Lactic Acid Calcium Phosphorus Magnesium Ferritin Total Bilirubin AST ALT Lactate Dehydrogenase C-Reactive Protein Albumin Triglycerides Arterial Blood Glucose 119 H Arterial Blood Ionized Calcium Urine Creatinine Coronavirus (PCR) Crossmatch 02/26/21 02/27/21 02/27/21 23:18 04:00 05:04 WBC RBC Hgb Hct MCV MCH MCHC RDW Plt Count Lymph % (Auto) Lymph # (Auto) Seg Neutrophils % Seg Neuts % (Manual) Lymphocytes % (Manual) Monocytes % (Manual) Nucleated RBC % Seg Neutrophils # Seg Neutrophils # Man Lymphocytes # (Manual) Monocytes # (Manual) Eosinophils # (Manual) INR D-Dimer ABG pH 7.316 L POC ABG pCO2 49.0 H POC ABG pO2 111.2 H ABG pO2 ABG HCO3 ABG O2 Saturation ABG Base Excess ABG Hemoglobin 7.7 L ABG Oxyhemoglobin ABG Sodium 135.0 L ABG Potassium ABG Chloride ABG Glucose 113 H Oxyhemoglobin Carboxyhemoglobin Sodium Potassium Chloride Carbon Dioxide BUN Creatinine Glucose POC Glucose 114 H 112 H Hemoglobin A1c Lactic Acid Calcium Phosphorus Magnesium Ferritin Total Bilirubin AST ALT Lactate Dehydrogenase C-Reactive Protein Albumin Triglycerides Arterial Blood Glucose 113 H Arterial Blood Ionized Calcium 4.4 L Urine Creatinine Coronavirus (PCR) Crossmatch 02/27/21 02/27/21 02/27/21 12:13 18:30 23:40 WBC RBC Hgb Hct MCV MCH MCHC RDW Plt Count Lymph % (Auto) Lymph # (Auto) Seg Neutrophils % Seg Neuts % (Manual) Lymphocytes % (Manual) Monocytes % (Manual) Nucleated RBC % Seg Neutrophils # Seg Neutrophils # Man Lymphocytes # (Manual) Monocytes # (Manual) Eosinophils # (Manual) INR D-Dimer ABG pH POC ABG pCO2 POC ABG pO2 ABG pO2 ABG HCO3 ABG O2 Saturation ABG Base Excess ABG Hemoglobin ABG Oxyhemoglobin ABG Sodium ABG Potassium ABG Chloride ABG Glucose Oxyhemoglobin Carboxyhemoglobin Sodium Potassium Chloride Carbon Dioxide BUN Creatinine Glucose POC Glucose 127 H 129 H 115 H Hemoglobin A1c Lactic Acid Calcium Phosphorus Magnesium Ferritin Total Bilirubin AST ALT Lactate Dehydrogenase C-Reactive Protein Albumin Triglycerides Arterial Blood Glucose Arterial Blood Ionized Calcium Urine Creatinine Coronavirus (PCR) Crossmatch 02/28/21 02/28/21 02/28/21 04:07 05:29 10:22 WBC RBC Hgb Hct MCV MCH MCHC RDW Plt Count Lymph % (Auto) Lymph # (Auto) Seg Neutrophils % Seg Neuts % (Manual) Lymphocytes % (Manual) Monocytes % (Manual) Nucleated RBC % Seg Neutrophils # Seg Neutrophils # Man Lymphocytes # (Manual) Monocytes # (Manual) Eosinophils # (Manual) INR D-Dimer ABG pH 7.260 L POC ABG pCO2 67.6 H POC ABG pO2 ABG pO2 ABG HCO3 ABG O2 Saturation ABG Base Excess ABG Hemoglobin 7.9 L ABG Oxyhemoglobin ABG Sodium ABG Potassium ABG Chloride ABG Glucose 129 H Oxyhemoglobin Carboxyhemoglobin Sodium Potassium Chloride Carbon Dioxide BUN 68 H Creatinine 3.5 H Glucose 117 H POC Glucose 117 H Hemoglobin A1c Lactic Acid Calcium 7.9 L Phosphorus Magnesium Ferritin Total Bilirubin AST ALT Lactate Dehydrogenase C-Reactive Protein Albumin Triglycerides Arterial Blood Glucose 129 H Arterial Blood Ionized Calcium Urine Creatinine Coronavirus (PCR) Crossmatch 02/28/21 02/28/21 03/01/21 11:51 17:26 00:31 WBC RBC Hgb Hct MCV MCH MCHC RDW Plt Count Lymph % (Auto) Lymph # (Auto) Seg Neutrophils % Seg Neuts % (Manual) Lymphocytes % (Manual) Monocytes % (Manual) Nucleated RBC % Seg Neutrophils # Seg Neutrophils # Man Lymphocytes # (Manual) Monocytes # (Manual) Eosinophils # (Manual) INR D-Dimer ABG pH POC ABG pCO2 POC ABG pO2 ABG pO2 ABG HCO3 ABG O2 Saturation ABG Base Excess ABG Hemoglobin ABG Oxyhemoglobin ABG Sodium ABG Potassium ABG Chloride ABG Glucose Oxyhemoglobin Carboxyhemoglobin Sodium Potassium Chloride Carbon Dioxide BUN Creatinine Glucose POC Glucose 123 H 121 H 112 H Hemoglobin A1c Lactic Acid Calcium Phosphorus Magnesium Ferritin Total Bilirubin AST ALT Lactate Dehydrogenase C-Reactive Protein Albumin Triglycerides Arterial Blood Glucose Arterial Blood Ionized Calcium Urine Creatinine Coronavirus (PCR) Crossmatch 03/01/21 03/01/21 03/01/21 03:29 06:00 06:17 WBC RBC Hgb Hct MCV MCH MCHC RDW Plt Count Lymph % (Auto) Lymph # (Auto) Seg Neutrophils % Seg Neuts % (Manual) Lymphocytes % (Manual) Monocytes % (Manual) Nucleated RBC % Seg Neutrophils # Seg Neutrophils # Man Lymphocytes # (Manual) Monocytes # (Manual) Eosinophils # (Manual) INR D-Dimer ABG pH POC ABG pCO2 52.3 H POC ABG pO2 115.1 H ABG pO2 ABG HCO3 ABG O2 Saturation ABG Base Excess ABG Hemoglobin 7.5 L ABG Oxyhemoglobin ABG Sodium 135.6 L ABG Potassium ABG Chloride ABG Glucose 117 H Oxyhemoglobin Carboxyhemoglobin 1.6 H Sodium Potassium Chloride Carbon Dioxide BUN 78 H Creatinine 3.6 H Glucose 110 H POC Glucose 121 H Hemoglobin A1c Lactic Acid Calcium 8.0 L Phosphorus Magnesium Ferritin Total Bilirubin AST ALT Lactate Dehydrogenase C-Reactive Protein Albumin Triglycerides Arterial Blood Glucose 117 H Arterial Blood Ionized Calcium Urine Creatinine Coronavirus (PCR) Crossmatch 03/01/21 03/02/21 03/02/21 23:22 04:43 05:46 WBC RBC Hgb Hct MCV MCH MCHC RDW Plt Count Lymph % (Auto) Lymph # (Auto) Seg Neutrophils % Seg Neuts % (Manual) Lymphocytes % (Manual) Monocytes % (Manual) Nucleated RBC % Seg Neutrophils # Seg Neutrophils # Man Lymphocytes # (Manual) Monocytes # (Manual) Eosinophils # (Manual) INR D-Dimer ABG pH POC ABG pCO2 POC ABG pO2 ABG pO2 ABG HCO3 ABG O2 Saturation ABG Base Excess ABG Hemoglobin ABG Oxyhemoglobin ABG Sodium ABG Potassium ABG Chloride ABG Glucose Oxyhemoglobin Carboxyhemoglobin Sodium Potassium Chloride Carbon Dioxide BUN 89 H Creatinine 3.6 H Glucose 116 H POC Glucose 116 H 126 H Hemoglobin A1c Lactic Acid Calcium 7.7 L Phosphorus Magnesium Ferritin Total Bilirubin AST ALT Lactate Dehydrogenase C-Reactive Protein Albumin Triglycerides Arterial Blood Glucose Arterial Blood Ionized Calcium Urine Creatinine Coronavirus (PCR) Crossmatch 03/02/21 03/02/21 03/02/21 08:35 11:35 15:17 WBC RBC 2.15 L Hgb 7.1 L Hct 20.4 L MCV 95 H MCH 33 H MCHC 35 H RDW 17.6 H Plt Count Lymph % (Auto) Lymph # (Auto) Seg Neutrophils % Seg Neuts % (Manual) Lymphocytes % (Manual) Monocytes % (Manual) Nucleated RBC % Seg Neutrophils # Seg Neutrophils # Man Lymphocytes # (Manual) Monocytes # (Manual) Eosinophils # (Manual) INR D-Dimer ABG pH POC ABG pCO2 POC ABG pO2 ABG pO2 ABG HCO3 ABG O2 Saturation ABG Base Excess ABG Hemoglobin ABG Oxyhemoglobin ABG Sodium ABG Potassium ABG Chloride ABG Glucose Oxyhemoglobin Carboxyhemoglobin Sodium Potassium Chloride Carbon Dioxide BUN Creatinine Glucose POC Glucose 117 H Hemoglobin A1c Lactic Acid Calcium Phosphorus Magnesium Ferritin Total Bilirubin AST ALT Lactate Dehydrogenase C-Reactive Protein Albumin Triglycerides Arterial Blood Glucose Arterial Blood Ionized Calcium Urine Creatinine Coronavirus (PCR) Positive A Crossmatch 03/02/21 03/02/21 03/02/21 17:50 23:26 Unknown WBC RBC Hgb Hct MCV MCH MCHC RDW Plt Count Lymph % (Auto) Lymph # (Auto) Seg Neutrophils % Seg Neuts % (Manual) Lymphocytes % (Manual) Monocytes % (Manual) Nucleated RBC % Seg Neutrophils # Seg Neutrophils # Man Lymphocytes # (Manual) Monocytes # (Manual) Eosinophils # (Manual) INR D-Dimer ABG pH 7.282 L POC ABG pCO2 POC ABG pO2 ABG pO2 150.8 H ABG HCO3 30.1 H ABG O2 Saturation ABG Base Excess ABG Hemoglobin 6.9 L ABG Oxyhemoglobin ABG Sodium ABG Potassium ABG Chloride ABG Glucose Oxyhemoglobin Carboxyhemoglobin Sodium Potassium Chloride Carbon Dioxide BUN Creatinine Glucose POC Glucose 131 H 143 H Hemoglobin A1c Lactic Acid Calcium Phosphorus Magnesium Ferritin Total Bilirubin AST ALT Lactate Dehydrogenase C-Reactive Protein Albumin Triglycerides Arterial Blood Glucose Arterial Blood Ionized Calcium Urine Creatinine Coronavirus (PCR) Crossmatch 03/03/21 03/03/21 03/03/21 03:50 05:46 17:16 WBC RBC Hgb Hct MCV MCH MCHC RDW Plt Count Lymph % (Auto) Lymph # (Auto) Seg Neutrophils % Seg Neuts % (Manual) Lymphocytes % (Manual) Monocytes % (Manual) Nucleated RBC % Seg Neutrophils # Seg Neutrophils # Man Lymphocytes # (Manual) Monocytes # (Manual) Eosinophils # (Manual) INR D-Dimer ABG pH 7.276 L POC ABG pCO2 POC ABG pO2 ABG pO2 ABG HCO3 31.7 H ABG O2 Saturation ABG Base Excess 4.3 H ABG Hemoglobin 6.7 L ABG Oxyhemoglobin ABG Sodium ABG Potassium ABG Chloride ABG Glucose Oxyhemoglobin 93.5 L Carboxyhemoglobin Sodium Potassium Chloride Carbon Dioxide BUN Creatinine Glucose POC Glucose 107 H 109 H Hemoglobin A1c Lactic Acid Calcium Phosphorus Magnesium Ferritin Total Bilirubin AST ALT Lactate Dehydrogenase C-Reactive Protein Albumin Triglycerides Arterial Blood Glucose Arterial Blood Ionized Calcium Urine Creatinine Coronavirus (PCR) Crossmatch 03/03/21 03/03/21 03/03/21 23:34 Unknown Unknown WBC 12.4 H RBC 2.26 L Hgb 6.8 L Hct 21.8 L MCV 96 H MCH MCHC 31 L RDW 18.5 H Plt Count Lymph % (Auto) Lymph # (Auto) Seg Neutrophils % Seg Neuts % (Manual) Lymphocytes % (Manual) Monocytes % (Manual) Nucleated RBC % Seg Neutrophils # Seg Neutrophils # Man Lymphocytes # (Manual) Monocytes # (Manual) Eosinophils # (Manual) INR D-Dimer ABG pH POC ABG pCO2 POC ABG pO2 ABG pO2 ABG HCO3 ABG O2 Saturation ABG Base Excess ABG Hemoglobin ABG Oxyhemoglobin ABG Sodium ABG Potassium ABG Chloride ABG Glucose Oxyhemoglobin Carboxyhemoglobin Sodium Potassium Chloride Carbon Dioxide BUN 70 H Creatinine 2.6 H Glucose 118 H POC Glucose 135 H Hemoglobin A1c Lactic Acid Calcium Phosphorus Magnesium Ferritin Total Bilirubin AST ALT Lactate Dehydrogenase C-Reactive Protein Albumin Triglycerides Arterial Blood Glucose Arterial Blood Ionized Calcium Urine Creatinine Coronavirus (PCR) Crossmatch 03/03/21 03/03/21 03/04/21 Unknown Unknown 03:15 WBC RBC Hgb Hct MCV MCH MCHC RDW Plt Count Lymph % (Auto) Lymph # (Auto) Seg Neutrophils % Seg Neuts % (Manual) Lymphocytes % (Manual) Monocytes % (Manual) Nucleated RBC % Seg Neutrophils # Seg Neutrophils # Man Lymphocytes # (Manual) Monocytes # (Manual) Eosinophils # (Manual) INR 1.15 H D-Dimer ABG pH 7.285 L POC ABG pCO2 POC ABG pO2 ABG pO2 ABG HCO3 28.8 H ABG O2 Saturation ABG Base Excess ABG Hemoglobin 8.3 L ABG Oxyhemoglobin ABG Sodium ABG Potassium ABG Chloride ABG Glucose Oxyhemoglobin 93.4 L Carboxyhemoglobin Sodium Potassium Chloride Carbon Dioxide BUN Creatinine Glucose POC Glucose Hemoglobin A1c Lactic Acid Calcium Phosphorus Magnesium Ferritin Total Bilirubin AST ALT Lactate Dehydrogenase C-Reactive Protein Albumin Triglycerides Arterial Blood Glucose Arterial Blood Ionized Calcium Urine Creatinine Coronavirus (PCR) Crossmatch See Detail 03/04/21 03/04/21 03/04/21 03:28 05:39 11:47 WBC RBC Hgb Hct MCV MCH MCHC RDW Plt Count Lymph % (Auto) Lymph # (Auto) Seg Neutrophils % Seg Neuts % (Manual) Lymphocytes % (Manual) Monocytes % (Manual) Nucleated RBC % Seg Neutrophils # Seg Neutrophils # Man Lymphocytes # (Manual) Monocytes # (Manual) Eosinophils # (Manual) INR D-Dimer ABG pH 7.285 L POC ABG pCO2 62.0 H POC ABG pO2 80.9 L ABG pO2 ABG HCO3 ABG O2 Saturation ABG Base Excess ABG Hemoglobin 8.3 L ABG Oxyhemoglobin ABG Sodium ABG Potassium ABG Chloride ABG Glucose 144 H Oxyhemoglobin Carboxyhemoglobin Sodium Potassium Chloride Carbon Dioxide BUN Creatinine Glucose POC Glucose 123 H 125 H Hemoglobin A1c Lactic Acid Calcium Phosphorus Magnesium Ferritin Total Bilirubin AST ALT Lactate Dehydrogenase C-Reactive Protein Albumin Triglycerides Arterial Blood Glucose 144 H Arterial Blood Ionized Calcium Urine Creatinine Coronavirus (PCR) Crossmatch 03/04/21 03/04/21 03/04/21 16:49 Unknown Unknown WBC 13.9 H RBC 2.58 L Hgb 7.7 L Hct 24.0 L MCV MCH MCHC RDW 20.3 H Plt Count Lymph % (Auto) Lymph # (Auto) Seg Neutrophils % Seg Neuts % (Manual) Lymphocytes % (Manual) Monocytes % (Manual) Nucleated RBC % Seg Neutrophils # Seg Neutrophils # Man Lymphocytes # (Manual) Monocytes # (Manual) Eosinophils # (Manual) INR D-Dimer ABG pH POC ABG pCO2 POC ABG pO2 ABG pO2 ABG HCO3 ABG O2 Saturation ABG Base Excess ABG Hemoglobin ABG Oxyhemoglobin ABG Sodium ABG Potassium ABG Chloride ABG Glucose Oxyhemoglobin Carboxyhemoglobin Sodium Potassium Chloride Carbon Dioxide BUN 78 H Creatinine 2.5 H Glucose 131 H POC Glucose 120 H Hemoglobin A1c Lactic Acid Calcium 8.2 L Phosphorus Magnesium Ferritin Total Bilirubin AST ALT Lactate Dehydrogenase C-Reactive Protein Albumin Triglycerides Arterial Blood Glucose Arterial Blood Ionized Calcium Urine Creatinine Coronavirus (PCR) Crossmatch 03/05/21 03/05/21 03/05/21 00:31 04:18 05:30 WBC RBC Hgb Hct MCV MCH MCHC RDW Plt Count Lymph % (Auto) Lymph # (Auto) Seg Neutrophils % Seg Neuts % (Manual) Lymphocytes % (Manual) Monocytes % (Manual) Nucleated RBC % Seg Neutrophils # Seg Neutrophils # Man Lymphocytes # (Manual) Monocytes # (Manual) Eosinophils # (Manual) INR D-Dimer ABG pH 7.160 L POC ABG pCO2 86.3 H POC ABG pO2 55.9 L ABG pO2 ABG HCO3 ABG O2 Saturation ABG Base Excess ABG Hemoglobin 8.3 L ABG Oxyhemoglobin 82.1 L ABG Sodium ABG Potassium ABG Chloride 108.0 H ABG Glucose 149 H Oxyhemoglobin Carboxyhemoglobin 1.7 H Sodium Potassium Chloride Carbon Dioxide BUN Creatinine Glucose POC Glucose 129 H 133 H Hemoglobin A1c Lactic Acid Calcium Phosphorus Magnesium Ferritin Total Bilirubin AST ALT Lactate Dehydrogenase C-Reactive Protein Albumin Triglycerides Arterial Blood Glucose 149 H Arterial Blood Ionized Calcium Urine Creatinine Coronavirus (PCR) Crossmatch 03/05/21 03/05/21 09:00 11:31 WBC RBC Hgb Hct MCV MCH MCHC RDW Plt Count Lymph % (Auto) Lymph # (Auto) Seg Neutrophils % Seg Neuts % (Manual) Lymphocytes % (Manual) Monocytes % (Manual) Nucleated RBC % Seg Neutrophils # Seg Neutrophils # Man Lymphocytes # (Manual) Monocytes # (Manual) Eosinophils # (Manual) INR D-Dimer ABG pH POC ABG pCO2 POC ABG pO2 ABG pO2 ABG HCO3 ABG O2 Saturation ABG Base Excess ABG Hemoglobin ABG Oxyhemoglobin ABG Sodium ABG Potassium ABG Chloride ABG Glucose Oxyhemoglobin Carboxyhemoglobin Sodium Potassium Chloride Carbon Dioxide BUN 84 H Creatinine 2.3 H Glucose 143 H POC Glucose 133 H Hemoglobin A1c Lactic Acid Calcium 8.0 L Phosphorus Magnesium Ferritin Total Bilirubin AST ALT Lactate Dehydrogenase C-Reactive Protein Albumin Triglycerides Arterial Blood Glucose Arterial Blood Ionized Calcium Urine Creatinine Coronavirus (PCR) Crossmatch
[2021-03-05] MEDS ORDERED: MAGNESIUM CITRATE 300 ML ORAL LIQD PO ONE (12:00)
[2021-03-05] MEDS ORDERED: SODIUM BICARB 8.4% 50 MEQ/50 ML SYRINGE IV ONE (14:51)
--- NOTE | 2021-03-05 16:06 | Event Note ---
Date: 03/05/21 Discussed with nephrology. Request possible permcath on tuesday as patient may not require further dialysis. Will be determined by 24 hr cr clearance. Based on clearance, will decide upon permcath. Rescheduled for permcath possibly on tuesday.
--- NOTE | 2021-03-05 16:26 | Progress Note ---
Assessment and Plan Assessment and plan: This is a 60-year-old male with diabetes mellitus, hypertension, hyperlipidemia, chronic renal insufficiency who was admitted on 01/23 as a COVID-19 PUI with Sepsis, COVID-19 pneumonia, coag negative staph bacteremia, acute hypoxic respiratory failure, and acute kidney injury. Sepsis COVID-19 pneumonia Coag-neg Staph bacteremia Acute hypoxic respiratory failure Acute kidney injury, HD initiated 02/03 Anemia Diabetes mellitus Hypertension Hyperlipidemia Chronic renal insufficiency Elevated D-dimer Penile ulceration Sacral wound -CCM, nephrology, infectious disease, GI , vascular surgery, surgery, urology, neurology consulted, appreciate recommendations -s/p Antibiotic therapy, remdesivir, Steroid therapy -COVID-19 PCR positive, Pneumonia on CXR -Mechanical ventilation, wean as tolerated -VAP bundle -HD per nephrology -S/p 5 units PRBC during stay -Trend BMP, CBC, COVID-19 inflammatory markers -Bilateral lower extremity and upper extremity Doppler ultrasound negative for DVT/SVT -SSI and Long-acting insulin -Accu-Cheks every 6 while on tube feedings -Hold home antihypertensive regimen and resume when appropriate -S/p vasopressor support -Blood pressure monitoring per protocol -S/p NaHCO3 gtt -02/17 CT head showed no acute intracranial abnormality, paranasal sinus disease -Bowel regimen -02/24 EEG finding consistent with encephalopathy and/or drug effect, possibility of toxic metabolic etiology cannot be excluded, possibility of structural lesion on the left side cannot be excluded given left being slightly slower than the right. -Neosporin twice daily to penile shaft ulcer -01/23, 02/18, 03/02 COVID-19 PCR positive -Permcath placement pending DVT/GI prophylaxis: SCDs to bilateral lower extremities while in bed, PPI, heparin subq Dispo: ICU The high probability of a clinically significant, sudden or life threatening deterioration of the [multi] system(s) required my full and direct attention, intervention and personal management. The aggregate critical care time was [35] minutes. This time is in addition to time spent performing reported procedures but includes the following: [x] Data Review and interpretation [x] Patient assessment and monitoring of vital signs [x] Documentation [x] Medication orders and management History Interval history: This is a 60-year-old male with diabetes mellitus, hypertension, hyperlipidemia, chronic renal insufficiency presents to the emergency department on 01/23 with shortness of breath, fevers chills, loss of smell and taste and body aches for the past 3 days via EMS. Per EMS patient's oxygen saturation on room air was 50% and after being placed on nonrebreather it increased 75%. Upon arrival to the emergency department patient was being bagged by EMS. In the emergency room patient was intubated due to severe hypoxia, increased work of breathing and lethargy. Patient was sedated on propofol and fentanyl. Patient presented with fever, tachycardia, tachypnea and acute hypoxic respiratory failure with PNA on CXR meeting Sepsis criteria. Lab work in the emergency department revealed hyponatremia, hypokalemia, hypochloremia, elevated CR/BUN and CXR showed bilateral pneumonia. Patient was admitted to the hospital service as a COVID-19 PUI with consults to infectious disease, nephrology and critical care medicine. 01/24/2021: Patient is intubated and sedated, patient is positive for COVID-19 infection. ID was consulted and put on dexamethasone and remdesivir. Patient has DEISI and nephrology is following. Creatinine stable, patient is urinating. Discussed with nephrology and he is okay with remdesivir. Pulmonary critical care is following for his vent setting. PEEP of 8 and FiO2 of 85%. Patient was alert and off sedatives. 01/25/2021; patient is intubated and on mechanical ventilation. Continue with treatment of Covid. Nephrology and ID is following. Pulmonary is following for vent management 01/26: Remains on mechanical ventilation and [facility] increased his PEEP. [facility] has ordered Precedex for sedation. Possibly need to prone this p.m. No acute ev ents reported overnight. This morning his D-dimer is greater than 10,000 and we have started him on Lovenox 120 mg daily. Nutrition has been consulted for initiation of tube feedings. Patient remains sedated on propofol 40 and fentanyl for the time my examination this morning. 01/27: Continue Lovenox, remdesivir and empiric antibiotics. Patient had a T-max of 101 overnight. The time of examination patient is on CMV 500/18/14/0.61. Kidney function slightly worsened. Sedated on fentanyl ground-level fall and Precedex. Nephrology has increased IV fluids to 100 ml/hr. Continue to trend BMP and CBC. Sedation vacation attempt by RN this AM. 01/28: Patient completed antibiotics today [facility] will paralyze patient and increase sedation. PICC line ordered for possible vasopressor therapy need. Patient's D-dimer remains greater than 10,000 and he still has hyperchloremia. Patient's kidney function has improved today. May need to prone the patient if no improvement in oxygenation is noted in the next 24 hours. The time of my examination patient is sedated with propofol, fentanyl and Precedex and is on assist control 500/18/16/0.80 hypoxic on ABG on 60% FiO2. 01/29: Patient was started on Nimbex yesterday and his ABG this morning showed respiratory acidosis with hypercapnia and his respiratory rate was increased. We will obtain a repeat ABG this afternoon. This morning patient is h ypernatremic, hyperkalemic and hyperchloremic. His potassium has been corrected with the management and will obtain repeat BMP tomorrow. His kidney functions have remained stable and we will await nephrology's input. No acute events reported overnight. This morning the time my examination patient sedated with propofol, Precedex and fentanyl and paralyzed with Nimbex. He is on assist control 500/24/16 0.80. 01/30: This morning patient is hypokalemic again and was given Kayexalate. Patient has hypernatremia and hyper chloremia and his renal function is slightly worse after receiving Lasix yesterday. His D-dimer remains greater than 10,000 and he is still on a paralytic. Patient is sedated on Precedex, fentanyl, propofol. Mechanical ventilation settings seven-point /61/28. [facility] has decided to continue paralytics for 48 more hours and will attempt proning the patient. Increased free water flushes 300 cc every 4 hours. Patient states has restarted his antibiotics cefepime and vancomycin and recultured. 01/31/21 Hyperkalemia, Treated 02/01/21 Hyperkalemia, Treated 02/02: Patient's kidney function continues to worsen and a stat BMP this morning shows BUN/creatinine 20/6.1 and he remains hypocalcemic and hypernatremic, hypokalemic and hypochloremic. Patient received 2 g of calcium gluconate and Kayexalate and his repeat potassium was 4.3 this afternoon. He remains antibiotic therapy and steroids. Nephrology has placed the patient on bicarb drip given metabolic acidosis and has decided to hold off hemodialysis till tomorrow.The time my examination patient is sedated on fentanyl, Precedex and on assist control 500/20/12/0.70. s/p paralytic. 02/03: Today patient's ABG shows respiratory acidosis however it is improving, hypernatremia, hyperchloremia, metabolic acidosis on BMP, worsening kidney function BUN/creatinine 130/9.2 with hyperphosphatemia. Patient received a Vas- Cath to his right IJ for initiation of dialysis. At the time of my examination patient remains sedated on fentanyl, propofol and Precedex with vasopressor support with Levophed at 2. 02/04: At the time of examination patient was on assist control tidal volume 500, rate 40, PEEP of 12, FiO2 85%. Patient had a T-max of 100.9 and infectious disease has stopped his vancomycin given negative MRSA. This afternoon patient respiked his temperature and was pancultured again. Patient was started on hemodialysis yesterday and will receive HD again today. Patient is sedated on Precedex, propofol, fentanyl and remains on Levophed. He is on assist control tidal volume 500, rate of 30, PEEP of 12, FiO2 of 85%. Patient still has some respiratory acidosis however his hypernatremia and hyperchloremia have improved and his metabolic acidosis has resolved. Patient will receive hemodialysis today 02/05: Patient continues to have low-grade fever temp this morning time examination he was on assist control tidal volume 500, and sedated on propofol/fentanyl/Precedex and is on Levophed. Hemodialysis per nephrology. Antibiotics per ID. Patient's blood culture from 02/04 grew gram-positive cocci in clusters in 1/2 bottles and he was started on vancomycin. 02/06: Patients ABG showed respiratory acidosis and the tracings were changed however a repeat ABG showed showed acidosis.[facility] will start a bicarb drip after giving 2 amps of bicarb push. Yesterday patient blood cultures grew gram- positive cocci and he was started on vancomycin. At the time my examination patient was on assist control tidal volume 550, rate 34, PEEP 16, FiO2 90% and sedated on fentanyl, Precedex, propofol elevated pressure support with Levophed. Bilateral lower extremity Doppler ultrasounds done yesterday showed no ruddy dence of DVT/SVT. 02/07/2021; patient is still on the vent with PEEP of 16 and FiO2 of 90%, sedated with fentanyl Precedex and propofol. Patient still requiring Levophed. Patient was sedated yesterday and was given bicarb push. Blood culture grew gram-positive cocci in clusters and he is on vancomycin, will follow identification. 02/08/2021;patient is still on the vent with PEEP of 16 and FiO2 of 90%, sedated with fentanyl Precedex and propofol. Patient still requiring Levophed. Patient was sedated yesterday and was given bicarb push. Blood culture grew gram- positive cocci in clusters and he is on vancomycin, will follow identification. Patient is currently on dialysis. Patient is anemic transfuse if hemoglobin is below 7. 02/09: This morning patient has slight hypokalemia, hypochorlemia, hyponatremia and metabolic alkalosis. [facility] will continue bicarb gtt given that the patient do es not have HD access at this time. We will replete the potassium and recheck BMP in the AM. We will type and cross in anticipation of PRBC transfusion. This morning he is sedated on Ativan, fentayl, and precedex. Will obtain a triglyceride level today in hopes to resume propofol. Patient is alkalotic and BMP however we will continue with bicarb drip per [facility] given that the patient does not have any access for hemodialysis. Anticipate replacing hemodialysis catheter tomorrow or Tuesday. The time my examination he is on AC TV 550, Rate 34, PeeP 16, FiO2 .65. 02/10: A.m. labs still pending, [facility] plans to replace HD catheter tomorrow as the patient is still febrile however his fever curve is trending down, remains on a bicarb drip and on vancomycin. Today at the time my examination patient was sedated on Precedex, Ativan and fentanyl and he is on assist control tidal 11/04/1951, rate 34, PEEP 16, FiO2 65%. Overnight patient was hypotensive and received 1 dose of midodrine. 02/11: Patient is still having low-grade temperatures that we will obtain a bilateral lower upper extremity venous Doppler ultrasound given that his repeat cultures have been negative so far. Patient received a Vas-Cath today for hemodialysis. The time examination patient is on assist control tidal volume 55 0, rate of 34, PEEP of 16 and FiO2 of 75%. Patient was hypokalemic and anemic yesterday which were both repleted with potassium and 1 unit PRBC. 02/12: 02/12: Patient had a 12-second run of V. tach today, his potassium and magnesium were low which was repleted. Renal adjusted potassium bath. We will obtain a triglyceride level in hopes to restarting to prevent as needed. This morning at the time my examination patient was sedated on fentanyl, Ativan and Precedex and remained on a bicarb drip. He was on assist control tidal volume 550, rate 34, PEEP 16, FiO2 85%. We will obtain a occult stool given no evident source of bleeding and need for transfusion. Anemia possibly due to hemodialys is. 02/13: Patient's T-max was 100.7, remains on fentanyl, Ativan, Precedex and bicarb drip this morning at some examination on assist control tidal volume 550, rate 34, PEEP 16 and FiO2 85%. On the labs this morning is slightly hypokalemic and remains metabolic alkalotic on BMP. His occult was positive. His Lovenox and consult GI. Patient received hemodialysis today. 02/14: cont PPI, GI recommended to scope now, monitor clinically, tolerating TF, remains intubated. Hb 6.9 today - transfuse another unit. very poor prognosis. 02/15: H&H appears to be stable following 1 unit of transfusion yesterday. Continue to hold heparin and aspirin products. Continue to monitor clinically. Poor prognosis. Wean off from vent as tolerated. 02/16: Infectious disease has signed off, his Ativan drip was discontinued and to prevent drip will be started when patient needs it. T-max 100.6 yesterday afternoon. He received hemodialysis today and at the time my examination was still on mechanical ventilation assist control tidal volume 550, rate 34, PEEP 16 on 70% FiO2. Patient was sedated on fentanyl dexamethasone and Ativan. No acute events reported overnight. 02/17: This morning patient was scheduled to get 2 units PRBC however his repeat H/H after 1 unit PRBC was 7.6/22.8 and the width of the second unit PRBC. This morning patient was sedated on fentanyl, propofol, Precedex and on assist control tolerated by 50, rate 34, PEEP of 16, FiO2 35%. Wound care was consulted today for his upper lip wound. Nephrology continues to withhold dialysis. No acute events reported overnight. Dr. Adkins was unable to contact family for updates. 02/18: Family updated by Dr. Adkins and Dr. Reddy. Patient had a hemodialysis today. The time my examination patient was on assist control tidal volume 550, rate 34, PEEP 16 and FiO2 35%. Overnight patient had a CT head and he was placed on 3% FiO2 and took "a long time to recover" per RN report. 02/19: Patient's D-dimer is trending up therefore he was started on prophylactic anticoagulation, no bowel movement for several days so he was started on mag citrate today. The time examination patient is sedated on Precedex 1.2, fentanyl 3, propofol 20 on assist control tidal volume 550, rate 34, PEEP 16, 80% FiO2 and on his ABG his PaO2 is 106. RT will try to wean as tolerated. Repeat COVID-19 PCR today was positive.Dr. Adkins updated the family today. 02/20: Patient received hemodialysis today. In the time my examination patient was sedated on Precedex, fentanyl, propofol and on assist control tidal line 550, rate 34, PEEP of 16 and 75% FiO2. Patient had a bowel movement yesterday. 02/21 no new concerns at this time afebrile Hospital course remains uncomplicated. 02/22. Hospital course complicated by an episode of ectopy over the p.m. Patient required Levophed for blood pressure control. Remains intubated sedated . Tolerated hemodialysis yesterday. 02/23: At the time my examination patient is on assist control tidal volume 550, rate 34, PEEP 16, FiO2 70% and is not sedated. Patient does not follow commands however his eyes open spontaneously and he does not track/focus. 02/24: Neurology consulted, EEG pending. No acute events reported overnight. Patient remains on hyperventilation totaling 550, rate 34, PEEP of 16 on 70% FiO2. Patient received hemodialysis yesterday. 02/25: EEG from 02/24 is suggestive of encephalopathy (toxic metabolic etiology cannot be excluded). This afternoon his peak pressures and and mean airway pressure is elevated so we obtained a CXR and ABG. Results were called to Dr. Masters. Patient received 2 mg of Versed was placed back on his sedation with fentanyl and Precedex. 02/26: Patient is on pressure ventilation FiO2 70%, Pressure inspiration 25, rate 34, PEEP 10 and sedated on fentanyl at 2mcgs and Precedex at 0.2. We will obtain a cxr for evaluation. Patient seems to be much more comfortable today. 02/27: CXr unchanged, at the time of my examination patient is on pressure control ventilation FiO2 70%, pressure support 26, rate 34 n.p.o. for 10 and sedated on fentanyl at 2 and Precedex at 0.1. His latest ABG 7.3, CO2 49, PO2 111, base excess 24. Patient is to receive hemodialysis today. No acute events reported overnight. Patient still not following commands. 02/28: Continue mechanical ventilation per pulmonary recommendations. Patient currently in AC mode ventilation rate 34, FiO2 70%, PEEP 15. 02/24 EEG finding consistent with encephalopathy and/or drug effect, possibility of toxic metabolic etiology cannot be excluded, possibility of structural lesion on the left side cannot be excluded given left being slightly slower than the right. Continue hemodialysis per nephrology. Currently with sedation of fentanyl and Precedex. Pulmonary plans for trach when ventilator settings allow. 03/01: Patient remains on mechanical ventilation AC mode, FiO2 70%, PEEP of 10. Hemodialysis initiated on 02/03/2021. Continue per nephrology. Patient will need tracheostomy once ventilator settings allow. Continue supportive care with tube feedings. Aspiration precautions. Patient appears to have penile ulceration and purulence. Consult urology for further evaluation. Prognosis remains guarded. 03/02: Tentative plan to place permacath tomorrow, patient will be n.p.o. after midnight and repeat COVID-19 PCR was ordered. Urology was consulted for a possible penile fistula. Patient received hemodialysis today. Today at the time of examination patient was on pressure control ventilation with a PEEP of 10 and FiO2 of 60 sedated on fentanyl and Precedex. 03/03: Patient noted to be anemic and ordered 1 unit of PRBC to be transfused, [facility] thinks patient has suffered from oxygen toxicity from prolonged time on high levels of oxygen (greater than 60%) for several weeks. The time my examination patient was on volume control ventilation and he remains off sedation. 03/04: Patient H/H today and 7.04/30:24 unit PRBC yesterday. Patient remains on pr essure control ventilation with a pressure support of 26, FiO2 55, rate of 24 and PEEP of 10. His sedation was restarted yesterday for increase WOB and tachypnea. Patient is sedated on fentanyl and dexamethasone. We will continue current management and possibly obtain a CT head on Tuesday if no improvement in mental status. 03/05: Infectious disease has stated that the patient is noninfectious as per PermCath procedure. However patient is renal function is improving and nephrology has opted to place PermCath on Tuesday if HD is still indicated. Patient was given mag citrate today for constipation and sodium bicarbonate push. Today surgery was consulted for possible debridement of sacral wound. Hospitalist Physical - Constitutional Vitals: Temp Pulse Resp BP Pulse Ox 99.1 F 105 H 40 H 118/71 94 03/05/21 12:08 03/05/21 16:00 03/05/21 16:00 03/05/21 16:03/05/21 16:00 General appearance: Present: no acute distress, obese, other (on mechanical ventilation) - EENT Eyes: Present: PERRL ENT: poor dentition - Neck Neck: Present: normal ROM - Respiratory Respiratory effort: normal Respiratory: bilateral: diminished - Cardiovascular Rhythm: regular Heart Sounds: Present: S1 & S2. Absent: systolic murmur, diastolic murmur - Extremities Extremities: no ischemia, pulses intact, pulses symmetrical, normal temperature, normal color Extremity abnormal: edema Peripheral Pulses: within normal limits - Abdominal General gastrointestinal: soft, non-tender, non-distended, normal bowel sounds - Psychiatric Psychiatric: other (sedated) - Neurologic Neurologic: moves all extremities, other (sedated) - Additional findings Additional findings: penile wound with purulent drainage Sacral wound possible need of debridement - Allied Health Allied health notes reviewed: nursing, RT, social work HEART Score - HEART Score Risk factors: 1-2 risk factors Troponin: < normal limit - Critical Actions Critical Actions: 0-3 pts:0.9-1.7%risk of adverse cardiac event.Candidate for discharge Results - Labs CBC & Chem 7: 03/04/21 Unknown 03/05/21 09:00 Labs: Laboratory Last Values WBC 13.9 K/mm3 (4.5-11.0) H 03/04/21 Unknown RBC 2.58 M/mm3 (3.65-5.03) L 03/04/21 Unknown Hgb 7.7 gm/dl (11.8-15.2) L 03/04/21 Unknown Hct 24.0 % (35.5-45.6) L 03/04/21 Unknown MCV 93 fl (84-94) 03/04/21 Unknown MCH 30 pg (28-32) 03/04/21 Unknown MCHC 32 % (32-34) 03/04/21 Unknown RDW 20.3 % (13.2-15.2) H 03/04/21 Unknown Plt Count 386 K/mm3 (140-440) 03/04/21 Unknown Lymph % (Auto) 11.0 % (13.4-35.0) L 02/15/21 05:00 [place] % (Auto) 4.2 % (0.0-7.3) 02/15/21 05:00 Eos % (Auto) 1.2 % (0.0-4.3) 02/15/21 05:00 Baso % (Auto) 0.6 % (0.0-1.8) 02/15/21 05:00 Lymph # (Auto) 1.1 K/mm3 (1.2-5.4) L 02/15/21 05:00 [place] # (Auto) 0.4 K/mm3 (0.0-0.8) 02/15/21 05:00 Eos # (Auto) 0.1 K/mm3 (0.0-0.4) 02/15/21 05:00 Baso # (Auto) 0.1 K/mm3 (0.0-0.1) 02/15/21 05:00 Add Manual Diff Complete 02/24/21 04:25 Total Counted 100 02/24/21 04:25 Seg Neutrophils % 83.0 % (40.0-70.0) H 02/15/21 05:00 Seg Neuts % (Manual) 82.0 % (40.0-70.0) H 02/24/21 04:25 Band Neutrophils % 2.0 % 02/16/21 Unknown Lymphocytes % (Manual) 3.0 % (13.4-35.0) L 02/24/21 04:25 Reactive Lymphs % (Man) 1.0 % 01/27/21 05:29 Monocytes % (Manual) 11.0 % (0.0-7.3) H 02/24/21 04:25 Eosinophils % (Manual) 1.0 % (0.0-4.3) 02/24/21 04:25 Basophils % (Manual) 1.0 % (0.0-1.8) 02/24/21 04:25 Metamyelocytes % 2.0 % 02/24/21 04:25 Nucleated RBC % Not Reportable 02/24/21 04:25 Seg Neutrophils # 8.6 K/mm3 (1.8-7.7) H 02/15/21 05:00 Seg Neutrophils # Man 9.4 K/mm3 (1.8-7.7) H 02/24/21 04:25 Band Neutrophils # 0.0 K/mm3 02/24/21 04:25 Lymphocytes # (Manual) 0.3 K/mm3 (1.2-5.4) L 02/24/21 04:25 Abs React Lymphs (Man) 0.0 K/mm3 02/24/21 04:25 Monocytes # (Manual) 1.3 K/mm3 (0.0-0.8) H 02/24/21 04:25 Eosinophils # (Manual) 0.1 K/mm3 (0.0-0.4) 02/24/21 04:25 Basophils # (Manual) 0.1 K/mm3 (0.0-0.1) 02/24/21 04:25 Metamyelocytes # 0.2 K/mm3 02/24/21 04:25 Myelocytes # 0.0 K/mm3 02/24/21 04:25 Promyelocytes # 0.0 K/mm3 02/24/21 04:25 Blast Cells # 0.0 K/mm3 02/24/21 04:25 WBC Morphology Not Reportable 02/24/21 04:25 Hypersegmented Neuts Not Reportable 02/24/21 04:25 Hyposegmented Neuts Not Reportable 02/24/21 04:25 Hypogranular Neuts Not Reportable 02/24/21 04:25 Smudge Cells Not Reportable 02/24/21 04:25 Toxic Granulation Not Reportable 02/24/21 04:25 Toxic Vacuolation Not Reportable 02/24/21 04:25 Dohle Bodies Not Reportable 02/24/21 04:25 Pelger-Huet Anomaly Not Reportable 02/24/21 04:25 Fátima Rods Not Reportable 02/24/21 04:25 Platelet Estimate Consistent w auto 02/24/21 04:25 Clumped Platelets Not Reportable 02/24/21 04:25 Plt Clumps, EDTA Not Reportable 02/24/21 04:25 Large Platelets Not Reportable 02/24/21 04:25 Giant Platelets Not Reportable 02/24/21 04:25 Platelet Satelliting Not Reportable 02/24/21 04:25 Plt Morphology Comment Not Reportable 02/24/21 04:25 RBC Morphology Not Reportable 02/24/21 04:25 Dimorphic RBCs Not Reportable 02/24/21 04:25 Polychromasia Few 02/24/21 04:25 Hypochromasia Not Reportable 02/24/21 04:25 Poikilocytosis Not Reportable 02/24/21 04:25 Anisocytosis 1+ 02/24/21 04:25 Microcytosis Not Reportable 02/24/21 04:25 Macrocytosis Not Reportable 02/24/21 04:25 Spherocytes Not Reportable 02/24/21 04:25 Pappenheimer Bodies Not Reportable 02/24/21 04:25 Sickle Cells Not Reportable 02/24/21 04:25 Target Cells Not Reportable 02/24/21 04:25 Tear Drop Cells Not Reportable 02/24/21 04:25 Ovalocytes Not Reportable 02/24/21 04:25 Helmet Cells Not Reportable 02/24/21 04:25 [place] Bodies Not Reportable 02/24/21 04:25 [place] Rings Not Reportable 02/24/21 04:25 [place] Cells Not Reportable 02/24/21 04:25 Bite Cells Not Reportable 02/24/21 04:25 Crenated Cell Not Reportable 02/24/21 04:25 Elliptocytes Not Reportable 02/24/21 04:25 Acanthocytes (Spur) Not Reportable 02/24/21 04:25 Rouleaux Not Reportable 02/24/21 04:25 Hemoglobin C Crystals Not Reportable 02/24/21 04:25 Schistocytes Not Reportable 02/24/21 04:25 Malaria parasites Not Reportable 02/24/21 04:25 Aquiles Bodies Not Reportable 02/24/21 04:25 Hem Pathologist Commnt No 02/24/21 04:25 PT 14.6 Sec. (12.2-14.9) 03/03/21 Unknown INR 1.15 (0.87-1.13) H 03/03/21 Unknown D-Dimer 6536.84 ng/mlDDU (0-234) H 02/25/21 09:03 ABG pH 7.160 (7.320-7.450) L 03/05/21 04:18 POC ABG pCO2 86.3 mmHg (32.0-48.0) H 03/05/21 04:18 ABG pCO2 62.0 mm Hg 03/04/21 03:15 POC ABG pO2 55.9 mmHg (83-108) L 03/05/21 04:18 ABG pO2 80.9 mm Hg (80.0-90.0) 03/04/21 03:15 POC ABG HCO3 30.1 03/05/21 04:18 ABG HCO3 28.8 mmol/L (20.0-26.0) H 03/04/21 03:15 ABG O2 Saturation 83.8 (0-100) 03/05/21 04:18 ABG O2 Content 9.0 (0.0-44) 03/03/21 03:50 POC ABG Base Excess 0.5 03/05/21 04:18 ABG Base Excess 1.6 mmol/L (-2.0-3.0) 03/04/21 03:15 ABG Hemoglobin 8.3 (12.0-17.5) L 03/05/21 04:18 ABG Oxyhemoglobin 82.1 (94-98) L 03/05/21 04:18 ABG Carboxyhemoglobin 2.0 % (0.0-5.0) 03/04/21 03:15 ABG Methemoglobin 0.3 (0.0-1.5) 03/05/21 04:18 ABG Sodium 142.3 mmol/L (136.0-145.0) 03/05/21 04:18 ABG Potassium 4.4 mmol/L (3.40-4.50) 03/05/21 04:18 ABG Chloride 108.0 mmol/L (98-107) H 03/05/21 04:18 ABG Glucose 149 mg/dL (65-95) H 03/05/21 04:18 Oxyhemoglobin 93.4 % (95.0-99.0) L 03/04/21 03:15 Carboxyhemoglobin 1.7 (0.5-1.5) H 03/05/21 04:18 FiO2 55 % 03/03/21 03:50 FiO2 % 55.0 03/05/21 04:18 Sodium 144 mmol/L (137-145) 03/05/21 09:00 Potassium 4.5 mmol/L (3.6-5.0) 03/05/21 09:00 Chloride 104.6 mmol/L (98-107) 03/05/21 09:00 Carbon Dioxide 30 mmol/L (22-30) 03/05/21 09:00 Anion Gap 14 mmol/L 03/05/21 09:00 BUN 84 mg/dL (9-20) H 03/05/21 09:00 Creatinine 2.3 mg/dL (0.8-1.3) H 03/05/21 09:00 Estimated GFR 35 ml/min 03/05/21 09:00 BUN/Creatinine Ratio 37 % 03/05/21 09:00 Glucose 143 mg/dL (75-100) H 03/05/21 09:00 POC Glucose 133 mg/dL (70-105) H 03/05/21 11:31 Hemoglobin A1c 6.3 % (4-6) H 02/02/21 16:00 Lactic Acid 1.90 mmol/L (0.7-2.0) 01/24/21 14:38 Calcium 8.0 mg/dL (8.4-10.2) L 03/05/21 09:00 Phosphorus 7.90 mg/dL (2.5-4.5) H 02/21/21 16:35 Magnesium 2.60 mg/dL (1.7-2.3) H 02/21/21 16:35 Ferritin 867.8 ng/mL (30.0-300.0) H 02/26/21 05:48 Total Bilirubin 1.50 mg/dL (0.1-1.2) H 01/26/21 05:47 AST 37 units/L (5-40) 01/26/21 05:47 ALT 29 units/L (7-56) 01/26/21 05:47 Alkaline Phosphatase 70 units/L (35-129) 01/26/21 05:47 Lactate Dehydrogenase 345 units/L (91-180) H 02/19/21 05:45 C-Reactive Protein 5.90 mg/dL (0.00-1.30) H 02/26/21 05:48 Total Protein 7.2 g/dL (6.3-8.2) 01/26/21 05:47 Albumin 2.2 g/dL (3.9-5) L 01/26/21 05:47 Albumin/Globulin Ratio 0.4 % 01/26/21 05:47 Triglycerides 195 mg/dL (2-149) H 02/19/21 05:45 Procalcitonin 18.94 ng/mL (<0.15) 02/16/21 17:09 Arterial Blood Glucose 149 mg/dL (65-95) H 03/05/21 04:18 Arterial Blood Ionized Calcium 4.8 mg/dL (4.6-5.3) 03/05/21 04:18 Urine Color Nehal (Yellow) 01/22/21 22:39 Urine Turbidity Cloudy (Clear) 01/22/21 22:39 Urine pH 5.0 (5.0-7.0) 01/22/21 22:39 Ur Specific [place] 1.017 (1.003-1.030) 01/22/21 22:39 Urine Protein 100 mg/dl mg/dL (Negative) 01/22/21 22:39 Urine Glucose (UA) Neg mg/dL (Negative) 01/22/21 22:39 Urine Ketones Neg mg/dL (Negative) 01/22/21 22:39 Urine Blood Mod (Negative) 01/22/21 22:39 Urine Nitrite Neg (Negative) 01/22/21 22:39 Urine Bilirubin Neg (Negative) 01/22/21 22:39 Urine Urobilinogen 2.0 mg/dL (<2.0) 01/22/21 22:39 Ur Leukocyte Esterase Mod (Negative) 01/22/21 22:39 Urine WBC (Auto) < 1.0 /HPF (0.0-6.0) 01/22/21 22:39 Urine RBC (Auto) < 1.0 /HPF (0.0-6.0) 01/22/21 22:39 U Epithel Cells (Auto) < 1.0 /HPF (0-13.0) 01/22/21 22:39 Urine Osmolality 416 Mosm/kg 01/30/21 12:15 Urine Total Volume 2300 ml 01/30/21 12:00 Urine Creatinine 53.0 mg/dL (0.1-20.0) H 01/30/21 12:00 Ur Creatinine 24 Hour 1.2 (0.8-2.8) 01/30/21 12:00 Urine Sodium 28 mmol/L 01/22/21 22:39 Nasal Screen MRSA (PCR) Negative (Negative) 02/02/21 13:20 Random Vancomycin 13.7 ug/mL (0-40.0) 02/07/21 10:40 Coronavirus (PCR) Positive (Negative) A 03/02/21 08:35 Hepatitis A IgM Ab Non-reactive (NonReactive) 02/03/21 Unknown Hep Bs Antigen Non-reactive (Negative) 02/03/21 Unknown Hep B Core IgM Ab Non-reactive (NonReactive) 02/03/21 Unknown Hepatitis C Antibody Non-reactive (NonReactive) 02/03/21 Unknown Blood Type B POSITIVE 03/03/21 Unknown Antibody Screen Negative 03/03/21 Unknown Crossmatch See Detail 03/03/21 Unknown Black/IV: Voiding Method Indwelling Catheter Active Medications - Current Medications Current Medications: Generic Name Dose Route Start Last Admin Trade Name Freq PRN Reason Stop Dose Admin Acetaminophen 650 mg 01/24/21 12:58 02/25/21 13:31 Acetaminophen 325 Mg/10.15 Ml Oral Liqd Unit Dose FEEDTUBE 650 mg Q6H PRN Administration Pain, Mild (1-3) Lipase/Protease/Amylase 1 each 01/26/21 14:25 Lipase 10,500/Protease 25,000/Amylase 43,750 (Units) Dr Claudio FEEDTUBE PRN PRN For Clogged Feeding Tube Dextrose 50 ml 01/27/21 07:24 Dextrose 50% In Water (25gm) 50 Ml Syringe IV Q30MIN PRN Hypoglycemia Protocol Fentanyl 50 mcg 01/22/21 22:39 02/25/21 10:25 Fentanyl 100 Mcg/2 Ml Inj IV 50 mcg Q10MIN PRN Administration ANALGESIA Heparin Sodium (Porcine) 2,000 unit 02/11/21 09:38 02/21/21 21:25 Heparin 10,000 Units/10 Ml Vial IV 2,000 unit SAGRARIO PRN Administration hemodialysis Heparin Sodium (Porcine) 5,000 unit 02/19/21 14:00 03/05/21 13:12 Heparin 5,000 Unit/1 Ml Vial SUB-Q 5,000 unit Q8HR CECE Administration Fentanyl Citrate 2,000 mcg in 100 mls @ 6.124 mls/hr 01/22/21 23:00 03/05/21 14:45 Fentanyl Drip Premix IV 3 mcg/kg/hr TITR CECE 18.371 mls/hr Titration Protocol 1 MCG/KG/HR Propofol 1,000 mg in 100 mls @ 3.674 mls/hr 01/22/21 23:45 02/21/21 08:30 Diprivan 10 Mg/Ml IV 0 mcg/kg/min TITR CECE 0 mls/hr Titration Protocol 5 MCG/KG/MIN Norepinephrine 4 mg in 250 mls @ 7.5 mls/hr 01/28/21 14:00 02/22/21 18:27 Levophed Drip 4 Mg/Ns 250 Ml IV 0 mcg/min TITR CECE 0 mls/hr Titration Protocol 2 MCG/MIN Dexmedetomidine HCl 1,000 mcg/ 260 mls @ 6.368 mls/hr 01/30/21 20:00 03/05/21 14:48 Sodium Chloride IV 1.1 mcg/kg/hr TITRATE CECE 35.026 mls/hr Titration Protocol 0.2 MCG/KG/HR Sodium Chloride 100 mls @ 999 mls/hr 02/27/21 11:00 Nacl 0.9% IV SAGRARIO PRN Hypotension Lansoprazole 30 mg 02/18/21 10:00 03/05/21 09:11 Lansoprazole 30 Mg Solutab FEEDTUBE 30 mg QDAY CECE Administration Neomycin/Polymyxin/Bacitracin 1 applic 03/02/21 15:00 03/05/21 13:12 Neomy 3.5 Mg/Bacit 400 Units/Poly B 5000 Units/Gm Oint Packet TP 1 applic TID CECE Administration Senna/Docusate Sodium 1 tab 02/25/21 10:00 03/05/21 09:11 Sennosides/Docusate Sodium 8.6/50 Mg Tab PO 1 tab BID CECE Administration Simple Syrup 15 ml 01/26/21 14:25 02/21/21 21:24 Simple Syrup 15 Ml FEEDTUBE 15 ml PRN PRN Administration Hypoglycemia Simple Syrup 30 ml 01/26/21 14:25 Simple Syrup 15 Ml FEEDTUBE PRN PRN Hypoglycemia Sodium Bicarbonate 325 mg 01/26/21 14:25 Sodium Bicarbonate 325 Mg Tab FEEDTUBE PRN PRN For Clogged Feeding Tube Sodium Hypochlorite 1 applic 03/05/21 22:00 Sodium Hypochlorite, [place]'s 1/2 Strength (0.25%) 473 Ml Topical Soln TP BID CECE Nutrition/Malnutrition Assess - Dietary Evaluation Nutrition/Malnutrition Findings: Nutrition Notes Start: 01/26/21 13:59 Freq: Status: Active Protocol: Document 03/04/21 08:52 AT (Rec: 03/04/21 08:58 AT [email or web address]) Co-Sign 03/04/21 08:52 Nutrition Notes Initial or Follow up Reassessment Current Diagnosis Acute Kidney Injury,Diabetes, Sepsis,Hypertension, Respiratory Failure, Hyperlipidemia Other Pertinent Diagnosis on HD, COVID-19 (+), bilat pneu Current Diet TF - Nepro at 46 ml/hr Labs/Tests BUN 78 Cr 2.5 BG 131 Pertinent Medications Fentanyl Height 5 ft 8 in Weight 105 kg [place] Body Weight (kg) 70.00 BMI 35.2 Weight change and time frame Wt change noted. Weight Status Obese Subjective/Other Information Follow up for TF tolerance. Visited pt at bedside and observed TF running at goal rate of 46 mL/hr. Pt remains on vent. Per RN, pt is tolerating TF without incident . Percent of energy/protein needs met: 100%/85% Burn Absent Trauma Absent GI Symptoms Constipation Difficulty In Swallowing Skin Integrity/Comment pressure ulcer to lips Current % PO Negligible Minimum of two criteria No Fluid Accumulation Moderate to Severe (severe) #2 Nutrition Diagnosis Increased nutrient needs ( specify in comment below) Diagnosis Progress(for reassessment Continues documentation) #1 Nutrition Diagnosis Inadequate oral intake Diagnosis Progress(for reassessment Continues documentation) Is patient on ventilator? Yes Is Patient Ambulatory and/or Out of Bed No REE-([facility]-confined to bed) 2194.092 Kcal/Kg value to use for calculation 17 Approximate Energy Requirements Using 1785 kcal/Kg Calculation Used for Recommendations Kcal/kg Additional Notes PRO needs: >105g (>1.2 g/kg AdBW 87.5 kg) Fluid needs: 500 + total output or per MD Nutrition Intervention Change Diet Order: Continue TF Nutrition Support: Nepro at 46 ml/hr with a free water flush of 200 ml q4h. Kcal 1,987 Protein (gm) 89 Fluid (mL) 803 Goal #1 TF tolerance Goal #2 TF to meet at least 75% energy and pro needs Anticipated Discharge Needs: unable to determine at this time Follow-Up By: 03/09/21 Additional Comments F/U for stable TF
[2021-03-05 18:50] LABS: Patient Weight,Urine 283.3 lbs
[2021-03-05 18:52] LABS: Creatinine 24 Hour,Urine 1.2 (0.8-2.8); Creatinine,Urine 65.9 mg/dL (0.1-20.0); Creatinine,Urine 66.1 mg/dL (0.1-20.0)
--- NOTE | 2021-03-05 21:12 | Event Note ---
Date: 03/05/21 [facility] Will [facility] tomorrow.
[2021-03-05] MEDS: SODIUM HYPOCHLORITE, DAKIN'S 1/2 STRENGTH (0.25%) 473 ML TOPICAL SOLN TP SCH (22:09)
[2021-03-06] MEDS: dexmedeTOMIDine 1,000 MCG in SODIUM CHLORIDE 0.9% 250ML 250 ML IV SCH ×2 (05:47→20:43)
[2021-03-06] MEDS: HEPARIN 5,000 UNIT/1 ML VIAL SUB-Q SCH ×3 (05:49→21:03)
[2021-03-06] MEDS: fentaNYL DRIP Premix 2,000 MCG/100 ML BAG IV SCH ×2 (07:27→20:41)
[2021-03-06] MEDS: NEOMY 3.5 MG/BACIT 400 UNITS/POLY B 5000 UNITS/GM OINT PACKET TP SCH ×3 (07:29→21:08)
[2021-03-06] MEDS: SODIUM HYPOCHLORITE, DAKIN'S 1/2 STRENGTH (0.25%) 473 ML TOPICAL SOLN TP SCH ×2 (09:50→21:03)
[2021-03-06] MEDS: LANSOPRAZOLE 30 MG SOLUTAB FEEDTUBE SCH (09:51)
[2021-03-06] MEDS: SENNOSIDES/DOCUSATE SODIUM 8.6/50 MG TAB PO SCH ×2 (09:51→21:03)
--- NOTE | 2021-03-06 11:14 | Progress Note ---
Assessment and Plan 60 y/o male with ARDS secondary most likely to COVID 19 pneumonia. 03/06/21: Will change patient back to PRVC. TV of 500, RR of 22, FiO2 of 55% and PEEP of 14. Repeat ABG in one hour after changes. Will speak with family about what the next steps could look like if patient able to obtain trach. 03/05/21: Increase RR to 40 as patient is on Assist Control/PC. This was changed back on 02/25. Will speak with RT as to why. Will also give 1 bottle of Mag Citrate today. Guarded prognosis. 03/04/21: Wean FiO2 for sats >88%. Will call family on tomorrow to give further updates and prep them for the possibility of the patient having to come home, maybe even on the vent. 03/03/21: Continue to wean FiO2 as tolerated. Would wean this first before weaning PEEP any further. Sedation only as needed but if placed back on continuous sedation, needs to have a holiday (break) every day. HD per renal. Transfusing 1 unit of PRBC's tomorrow. Unfortunately, mental status is going to be a large barrier for this patient. He likely has suffered some oxygen toxicity from prolonged time on high levels of oxygen (greater 60%) for several weeks. Will attempt to have a family meeting regarding further care. 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 Ultimately, if patient is able to leave the hospital, his only option would be to go home unless family could fund a facility on their own. Guarded prognosis remains. 02/23/21: Despite oxygen numbers looking better, now overall concern shifts somewhat towards mental state. Will continue to monitor for the next several days. However he has been on large amounts of oxygen therapy for a long time and could have some damage to his brain from this. Plan is to update the family tomorrow on current clinical state. His prognosis has been poor and now with mental state prognosis is worsening. HD per renal. Continue to wean FiO2 for sats >88% 02/22/21: Overall clinical state continues to waxes and wanes. Back up to 80%. Will call family tomorrow to update. Had HD last night, will likely have HD again on Tuesday. Very very guarded prognosis. Will send Triglyceride level anyway given recent change. 02/21/21: Continue to wean FiO2 for sats >88%. Down to 70 now and tolerating. Diprovan is off, nursing working to wean others as well. Can hold on triglycerides now that diprovan is off. Guarded prognosis. 02/20/21: HD today, goal is 3 liters. Continue sedation, did have to increase Diprovan but this is ok. Will need to check levels soon. BM complete. Continue prophylactic anticoagulation. Guarded prognosis. 02/19/21: HD per renal, likely tomorrow. Continue sedation. Has not had a BM so will give full dose of mag citrate today. STarted prophylactic anticoagulation. Wean FiO2 as tolerated. Will call family tomorrow. 02/18/21: HD per renal. continue sedation to help with oxygenation. Overall prognosis remains very guarded to poor. IMS has been speaking with family so will defer to them. Currently patient is not a candidate for trach given his oxygen and peep requirements. 02/17/21: Fine with cutting back on HD as not really helped with oxygenation. Continue to wean as tolerated for sats >88% and PaO2 >55. Sedation to achieve negative rass scoring. very very guarded to poor prognosis. 02/16/21: HD now. Wean FiO2 for sats> 88%. Agree with stopping ativan and holding on starting diprovan to see if the patient truly needs it. pH holding off bicarb drip goal is >7.2. Very very guarded to poor prognosis. 02/13/21: HD again now. Replace electrolytes per renal. Continue abx therapy per ID. Will get RT to wean FiO2 as not done on yesterday. Will restart diprovan post HD and stop ativan. Check Levels (Triglycerides on Tue or Tuesday). Can stop bicarb drip however must make sure that ABG is checked daily to make sure that pH is good. Very very guarded prognosis. 02/12/21: HD again today. Had a 12 second run of VTACH today as well. Stable. K is low, checking mag levels. Will alert Renal so they can adjust bath as needed. Post HD will start to wean FiO2 again. Unable to prone as patient does not tolerate. Repeat blood cultures negative and first set only showing Coag Negative Staph. Prognosis still remains very very guarded to poor. Will consider restarting Diprovan tomorrow. Patient now intubated for 20 days now but not candidate for trach yet given elevated PEEP and FiO2 levels but did discuss on rounds. 02/11/21: Vascath placed today for HD. Orders already in. Wean FiO2 for sats >88%. Abx per ID. Repeat cultures so far negative. Given persistent fevers, will check upper ext dopplers. Prognosis still remains guarded. 02/10/21: Triglycerides improved but current sedation is adequate so will hold on stopping ativan to add propofol back. Awaiting Labs from this morning. Plan to replace HD catheter tomorrow morning as early as possible. Fever curve is trending down. Continue bicarb drip for now. Prognosis remains guarded. WIll speak with family tomorrow to update. 02/09/21: Repeat Triglycerides today. Follow up repeat blood cultures. Given continued fever will hold on replacing vascath today. If fever free the next 24 hours, can place in the morning or Tuesday morning. Will likely need blood with next HD session. Continue bicarb drip to help manage respiratory as well as metabolic acidosis. Wean FiO2 for sats >88% and PaO2 >55. Overall prognosis remains guarded to poor. 02/08/21: Picc out today. Will repeat culture if patient spikes again today. Plan to replace HD catheter either late tomorrow or Tuesday morning. Continue current level of sedation. Abx therapy per ID. Wean FiO2 as tolerated, doubt will be able to do much until we can resume HD. Guarded prognosis. Replaced potassium. Will need to check in the morning. Will repeat K later this afternoon. 02/07/21: Biggest issue now is that patient's numbers are better with HD but now with bacteremia, concern for line infection. ID is correct in requesting line holiday. Has a picc and an Right IJ Dialysis catheter with 3 ports. Currently getting HD today. Have not seen renal yet. Will pull right IJ line post HD and plan to replace it Tuesday evening or Tuesday. Continue bicarb drip for now and will keep picc as patient has been requiring levophed. If able to be weaned off levophed, will remove picc either tomorrow or Tuesday. Continue Ativan, Precedex and Fent drips, repeat Triglycerides on Tuesday. Very very guarded prognosis. Will remove Black today as well. 02/06/21: Will add bicarb drip at 125/hr. Giving 2 amps of NaHCO3 push now. Will repeat ABG this afternoon, may just ask for Art Line if possible. HD today per renal and I spoke with them about the bicarb drip. Long discussion with Sister, Significant and other and another family member on the phone on yesterday. I tried my best to explain the severity of the clinical state but not sure if they fully understood. The patient is very very ill and history suggests that his outcome will be poor (intubated with covid and renal failure on dialysis). This was expressed with the family. Will continue all supportive measures. Checking triglyceride levels today. 02/05/21: WIll increase PEEP to 16. Can increase pressors if needed for BP control during HD. Follow up cultures. If negative will scan legs and arms again for VTE. Repeat ABG at 1400 today. Will speak with sister and Girlfriend on phone today. 02/04/21: HD again today per renal notes. Likely will need daily HD. New fevers. Will draw blood and urine cultures if able to still make urine.. Repeat CXR. May need to check dopplers if all of those studies are negative. Wean FIO2 as tolerated. Unable to tolerate proning. Guarded to poor prognosis. 02/03/21: HD today per renal. Wean FiO2 as tolerated. No further proning as patient cannot tolerate it, however with volume removal, may consider in the future. Use pressors to keep MAPs 65 and greater for HD purporses so volume can be removed. (IJ was wide open (filled with blood)) with patient sitting up at 45 degrees. Guarded prognosis. 02/02/21: After renal speaks with family, will place vascath today. Agree with bicarb drip but will order some pushes now to help with pH. Overall prognosis is very very guarded to poor now that patient is COVID positive and requiring renal replacement therapy. Mortality is very high in these patients. Continue steroid therapy. Unable to tolerate proning. 01/30/21: Will plan for proning later today. Goal will be at least 12hrs but long is okay. Speaking with pharmacy to see if we can get paralytic for a longer period of time. Regardless will prone. Continue heavy sedation. BP stable. Continue steroids. Very very guarded prognosis. 01/29/21: will increase tidal volume and/or increase respiratory rate. Repeat ABG this afternoon. Continue paralytic and adequate sedation. Continue steroid and remdesivir, follow up any renal recs. Prognosis remains guarded. Wean Fio2 for sats >88% 01/28/21: Increased PEEP to 16. Will paralyze patient today and increase sedation. Ordering picc line for possible vasopressor therapy needs. Continue BID steroids. Renal function is slightly better today with fluids but could be making oxygenation worse. Not able to diurese. Still making urine. Continue Remdesivir. Watch for fever curve. If not improvement in the next 24 hours with paralyzing, will prone tomorrow morning. 01/27/21: Continue PEEP at 14. No weaning until FiO2 is at or below 40-45%. Continue anticoagulation. Getting Remdesivir now. Continue BID steroids. Renal has increased the fluids. Monitor urine output and renal function. Overall prognosis is very very guarded, especially if renal status worsens. 01/26/21: Increase PEEP to 14. Will add Precedex therapy. If patient does not respond to increases in PEEP may need to prone. Will place patient on lovenox and will feed patient. Remdesivir coming. Continue BID steroids. Prognosis is guarded. 01/25/21: Hold on proning today. Continue BID steroids. ABG this AM was adequate. Pending abg tomorrow, may increase PEEP if not able to wean FiO2 any further. Per charting Remdesivir to arrive tomorrow. Guarded prognosis. 01/24/21: Continue BID steroids. No abg done this am but able to wean FiO2. Will obtain ABG in the am. Hold on proning for right now. Renal following, would like to diurese but they are given fluids for deisi. Agree with ID assessment and note. Guarded prognosis. 1. Increase steroids to BID given size 2. Check with ID to see if he is a candidate for remdesivir or any other experiemental therapy 3. Hold on proning for right now 4. Renal consulted and giving IVF's currently Guarded prognosis. CCT 31 minutes. Subjective Date of service: 03/06/21 Principal diagnosis: DEISI Interval history: No acute events. Did have BM on yesterday. Sats in the low 90's this am. Still on 55%. UOP is better today. pH and CO2 are also better with changes in rate on vent. Objective Vital Signs - 12hr 03/05/21 03/05/21 03/05/21 23:15 23:30 23:42 Temperature 99.8 F H Pulse Rate 112 H 112 H Respiratory 33 H 35 H Rate Blood Pressure 108/62 108/62 O2 Sat by Pulse 94 95 Oximetry 03/05/21 03/05/21 03/06/21 23:45 23:54 00:00 Temperature Pulse Rate 110 H 109 H 110 H Respiratory 35 H 35 H Rate Blood Pressure 106/63 106/63 102/62 O2 Sat by Pulse 93 95 95 Oximetry 03/06/21 03/06/21 03/06/21 00:15 00:30 00:45 Temperature Pulse Rate 110 H 110 H 110 H Respiratory 34 H 34 H 34 H Rate Blood Pressure 107/66 103/66 101/63 O2 Sat by Pulse 93 Oximetry 03/06/21 03/06/21 03/06/21 01:00 01:15 01:30 Temperature Pulse Rate 108 H 108 H 111 H Respiratory 42 H 13 40 H Rate Blood Pressure 101/59 109/59 106/62 O2 Sat by Pulse 91 92 Oximetry 03/06/21 03/06/21 03/06/21 01:45 02:00 02:15 Temperature Pulse Rate 109 H 109 H 107 H Respiratory 40 H 40 H 39 H Rate Blood Pressure 102/54 101/57 91/53 O2 Sat by Pulse 93 100 96 Oximetry 03/06/21 03/06/21 03/06/21 02:30 02:45 03:00 Temperature Pulse Rate 107 H 107 H 106 H Respiratory 37 H 40 H 40 H Rate Blood Pressure 105/64 106/60 102/61 O2 Sat by Pulse 95 94 93 Oximetry 03/06/21 03/06/21 03/06/21 03:15 03:30 03:45 Temperature 98.9 F Pulse Rate 105 H 102 H 105 H Respiratory 40 H 40 H 39 H Rate Blood Pressure 107/65 102/59 107/66 O2 Sat by Pulse 94 95 95 Oximetry 03/06/21 03/06/21 03/06/21 04:00 04:15 04:30 Temperature Pulse Rate 102 H 103 H 102 H Respiratory 40 H 40 H 40 H Rate Blood Pressure 100/60 104/63 99/57 O2 Sat by Pulse 95 95 Oximetry 03/06/21 03/06/21 03/06/21 04:45 04:51 05:00 Temperature Pulse Rate 103 H 102 H 100 H Respiratory 36 H 40 H Rate Blood Pressure 107/65 107/65 100/58 O2 Sat by Pulse 96 98 Oximetry 03/06/21 03/06/21 03/06/21 05:15 05:30 05:45 Temperature Pulse Rate 101 H 102 H Respiratory 36 H 40 H Rate Blood Pressure 108/65 105/65 114/73 O2 Sat by Pulse 96 96 94 Oximetry 03/06/21 03/06/21 03/06/21 06:00 06:15 06:30 Temperature Pulse Rate 102 H 101 H 100 H Respiratory 40 H 40 H 40 H Rate Blood Pressure 104/60 92/53 99/55 O2 Sat by Pulse 94 95 Oximetry 03/06/21 03/06/21 03/06/21 06:45 07:00 07:15 Temperature Pulse Rate 102 H 101 H 101 H Respiratory 33 H 35 H 34 H Rate Blood Pressure 109/64 110/66 113/63 O2 Sat by Pulse 94 94 96 Oximetry 03/06/21 03/06/21 03/06/21 07:30 07:45 07:59 Temperature 98.9 F Pulse Rate 103 H 105 H Respiratory 36 H 33 H Rate Blood Pressure 113/65 115/65 O2 Sat by Pulse 93 95 Oximetry 03/06/21 03/06/21 03/06/21 08:00 08:15 08:30 Temperature Pulse Rate 104 H 104 H 105 H Respiratory 33 H 34 H 33 H Rate Blood Pressure 115/65 112/64 115/64 O2 Sat by Pulse 96 96 96 Oximetry 03/06/21 03/06/21 08:45 09:22 Temperature Pulse Rate 105 H 104 H Respiratory 34 H Rate Blood Pressure 112/62 115/68 O2 Sat by Pulse 94 96 Oximetry Constitutional: other (sedated) Eyes: non-icteric ENT: other (orally intubated, critically ill) Neck: supple Effort: mildly labored (tachypneic) Ascultation: Bilateral: clear, other (coarse BS bilaterally) Percussion: Bilateral: not dull Cardiovascular: regular rate and rhythm (no mrg) Gastrointestinal: normoactive bowel sounds Integumentary: normal Extremities: no cyanosis, no edema, pink and warm Neurologic: unable to assess Psychiatric: other (unable to assess) CBC and BMP: 03/04/21 Unknown 03/05/21 09:00 ABG, PT/INR, D-dimer: ABG ABG pH 7.239 (7.320-7.450) L 03/06/21 03:23 POC ABG pCO2 67.0 mmHg (32.0-48.0) H 03/06/21 03:23 ABG pCO2 62.0 mm Hg 03/04/21 03:15 POC ABG pO2 76.6 mmHg (83-108) L 03/06/21 03:23 ABG pO2 80.9 mm Hg (80.0-90.0) 03/04/21 03:15 POC ABG HCO3 28.0 03/06/21 03:23 ABG O2 Saturation 94.4 (0-100) 03/06/21 03:23 PT/INR, D-dimer PT 14.6 Sec. (12.2-14.9) 03/03/21 Unknown INR 1.15 (0.87-1.13) H 03/03/21 Unknown D-Dimer 6536.84 ng/mlDDU (0-234) H 02/25/21 09:03 Abnormal lab findings: Abnormal Labs 01/22/21 01/22/21 01/22/21 22:39 22:57 22:57 WBC RBC Hgb Hct MCV MCH MCHC RDW Plt Count Lymph % (Auto) 6.6 L Lymph # (Auto) 0.5 L Seg Neutrophils % 87.6 H Seg Neuts % (Manual) Lymphocytes % (Manual) Monocytes % (Manual) Nucleated RBC % Seg Neutrophils # Seg Neutrophils # Man Lymphocytes # (Manual) Monocytes # (Manual) Eosinophils # (Manual) INR D-Dimer ABG pH POC ABG pCO2 POC ABG pO2 ABG pO2 ABG HCO3 ABG O2 Saturation ABG Base Excess ABG Hemoglobin ABG Oxyhemoglobin ABG Sodium ABG Potassium ABG Chloride ABG Glucose Oxyhemoglobin Carboxyhemoglobin Sodium 129 L Potassium 3.4 L Chloride 90.4 L Carbon Dioxide BUN 34 H Creatinine 1.5 H Glucose 146 H POC Glucose Hemoglobin A1c Lactic Acid Calcium 7.8 L Phosphorus Magnesium Ferritin Total Bilirubin AST 75 H ALT 57 H Lactate Dehydrogenase C-Reactive Protein Albumin 2.9 L Triglycerides Arterial Blood Glucose Arterial Blood Ionized Calcium Urine Creatinine 301.2 H Coronavirus (PCR) Crossmatch 01/22/21 01/22/21 01/22/21 22:57 22:57 22:57 WBC RBC Hgb Hct MCV MCH MCHC RDW Plt Count Lymph % (Auto) Lymph # (Auto) Seg Neutrophils % Seg Neuts % (Manual) Lymphocytes % (Manual) Monocytes % (Manual) Nucleated RBC % Seg Neutrophils # Seg Neutrophils # Man Lymphocytes # (Manual) Monocytes # (Manual) Eosinophils # (Manual) INR D-Dimer 1173.89 H ABG pH POC ABG pCO2 POC ABG pO2 ABG pO2 ABG HCO3 ABG O2 Saturation ABG Base Excess ABG Hemoglobin ABG Oxyhemoglobin ABG Sodium ABG Potassium ABG Chloride ABG Glucose Oxyhemoglobin Carboxyhemoglobin Sodium Potassium Chloride Carbon Dioxide BUN Creatinine Glucose 149 H POC Glucose Hemoglobin A1c Lactic Acid 2.10 H* Calcium Phosphorus Magnesium Ferritin Total Bilirubin AST ALT Lactate Dehydrogenase 685 H C-Reactive Protein 30.40 H Albumin Triglycerides Arterial Blood Glucose Arterial Blood Ionized Calcium Urine Creatinine Coronavirus (PCR) Crossmatch 01/22/21 01/23/21 01/23/21 22:57 08:41 10:01 WBC RBC Hgb Hct MCV MCH MCHC RDW Plt Count Lymph % (Auto) Lymph # (Auto) Seg Neutrophils % Seg Neuts % (Manual) Lymphocytes % (Manual) Monocytes % (Manual) Nucleated RBC % Seg Neutrophils # Seg Neutrophils # Man Lymphocytes # (Manual) Monocytes # (Manual) Eosinophils # (Manual) INR D-Dimer ABG pH POC ABG pCO2 POC ABG pO2 ABG pO2 ABG HCO3 ABG O2 Saturation ABG Base Excess ABG Hemoglobin ABG Oxyhemoglobin ABG Sodium ABG Potassium ABG Chloride ABG Glucose Oxyhemoglobin Carboxyhemoglobin Sodium 131 L Potassium Chloride 88.7 L Carbon Dioxide 18 L BUN 36 H Creatinine 1.6 H Glucose 147 H POC Glucose Hemoglobin A1c Lactic Acid Calcium 7.5 L Phosphorus Magnesium Ferritin 1207.0 H Total Bilirubin AST ALT Lactate Dehydrogenase C-Reactive Protein Albumin Triglycerides Arterial Blood Glucose Arterial Blood Ionized Calcium Urine Creatinine Coronavirus (PCR) Positive A Crossmatch 01/23/21 01/23/21 01/24/21 20:49 Unknown 00:10 WBC RBC Hgb Hct MCV MCH MCHC RDW Plt Count Lymph % (Auto) Lymph # (Auto) Seg Neutrophils % Seg Neuts % (Manual) Lymphocytes % (Manual) Monocytes % (Manual) Nucleated RBC % Seg Neutrophils # Seg Neutrophils # Man Lymphocytes # (Manual) Monocytes # (Manual) Eosinophils # (Manual) INR D-Dimer ABG pH POC ABG pCO2 POC ABG pO2 ABG pO2 165.4 H ABG HCO3 ABG O2 Saturation ABG Base Excess -2.5 L ABG Hemoglobin ABG Oxyhemoglobin ABG Sodium ABG Potassium ABG Chloride ABG Glucose Oxyhemoglobin Carboxyhemoglobin Sodium 130 L Potassium Chloride 91.0 L Carbon Dioxide 20 L BUN 52 H Creatinine 3.8 H D Glucose 150 H POC Glucose 125 H Hemoglobin A1c Lactic Acid Calcium 8.0 L Phosphorus Magnesium Ferritin Total Bilirubin AST 42 H ALT Lactate Dehydrogenase C-Reactive Protein Albumin 2.4 L Triglycerides Arterial Blood Glucose Arterial Blood Ionized Calcium Urine Creatinine Coronavirus (PCR) Crossmatch 01/24/21 01/24/21 01/24/21 05:05 05:05 05:05 WBC 14.0 H RBC Hgb Hct MCV 95 H MCH 33 H MCHC RDW Plt Count Lymph % (Auto) Lymph # (Auto) Seg Neutrophils % Seg Neuts % (Manual) 91.0 H Lymphocytes % (Manual) 4.0 L Monocytes % (Manual) Nucleated RBC % Seg Neutrophils # Seg Neutrophils # Man 12.7 H Lymphocytes # (Manual) 0.6 L Monocytes # (Manual) Eosinophils # (Manual) INR D-Dimer 6159.48 H ABG pH POC ABG pCO2 POC ABG pO2 ABG pO2 ABG HCO3 ABG O2 Saturation ABG Base Excess ABG Hemoglobin ABG Oxyhemoglobin ABG Sodium ABG Potassium ABG Chloride ABG Glucose Oxyhemoglobin Carboxyhemoglobin Sodium Potassium Chloride Carbon Dioxide BUN Creatinine Glucose POC Glucose Hemoglobin A1c Lactic Acid Calcium Phosphorus Magnesium Ferritin 1178.0 H Total Bilirubin AST ALT Lactate Dehydrogenase C-Reactive Protein Albumin Triglycerides Arterial Blood Glucose Arterial Blood Ionized Calcium Urine Creatinine Coronavirus (PCR) Crossmatch 01/24/21 01/24/21 01/24/21 05:05 05:05 05:05 WBC RBC Hgb Hct MCV MCH MCHC RDW Plt Count Lymph % (Auto) Lymph # (Auto) Seg Neutrophils % Seg Neuts % (Manual) Lymphocytes % (Manual) Monocytes % (Manual) Nucleated RBC % Seg Neutrophils # Seg Neutrophils # Man Lymphocytes # (Manual) Monocytes # (Manual) Eosinophils # (Manual) INR D-Dimer ABG pH POC ABG pCO2 POC ABG pO2 ABG pO2 ABG HCO3 ABG O2 Saturation ABG Base Excess ABG Hemoglobin ABG Oxyhemoglobin ABG Sodium ABG Potassium ABG Chloride ABG Glucose Oxyhemoglobin Carboxyhemoglobin Sodium 132 L Potassium Chloride 93.1 L Carbon Dioxide 21 L BUN 57 H Creatinine 3.7 H Glucose 133 H POC Glucose Hemoglobin A1c Lactic Acid 2.20 H* Calcium 7.7 L Phosphorus Magnesium Ferritin Total Bilirubin AST ALT Lactate Dehydrogenase 658 H C-Reactive Protein 33.20 H Albumin 2.4 L Triglycerides Arterial Blood Glucose Arterial Blood Ionized Calcium Urine Creatinine Coronavirus (PCR) Crossmatch 01/24/21 01/24/21 01/24/21 05:34 06:00 17:35 WBC RBC Hgb Hct MCV MCH MCHC RDW Plt Count Lymph % (Auto) Lymph # (Auto) Seg Neutrophils % Seg Neuts % (Manual) Lymphocytes % (Manual) Monocytes % (Manual) Nucleated RBC % Seg Neutrophils # Seg Neutrophils # Man Lymphocytes # (Manual) Monocytes # (Manual) Eosinophils # (Manual) INR D-Dimer ABG pH POC ABG pCO2 POC ABG pO2 ABG pO2 ABG HCO3 ABG O2 Saturation ABG Base Excess ABG Hemoglobin ABG Oxyhemoglobin ABG Sodium ABG Potassium ABG Chloride ABG Glucose Oxyhemoglobin Carboxyhemoglobin Sodium Potassium Chloride Carbon Dioxide BUN Creatinine Glucose POC Glucose 136 H 137 H Hemoglobin A1c Lactic Acid Calcium Phosphorus Magnesium 2.80 H Ferritin Total Bilirubin AST ALT Lactate Dehydrogenase C-Reactive Protein Albumin Triglycerides Arterial Blood Glucose Arterial Blood Ionized Calcium Urine Creatinine Coronavirus (PCR) Crossmatch 01/25/21 01/25/21 01/25/21 04:15 05:40 05:40 WBC RBC Hgb Hct MCV 95 H MCH 33 H MCHC 35 H RDW Plt Count Lymph % (Auto) Lymph # (Auto) Seg Neutrophils % Seg Neuts % (Manual) 95.0 H Lymphocytes % (Manual) 3.0 L Monocytes % (Manual) Nucleated RBC % Seg Neutrophils # Seg Neutrophils # Man 7.8 H Lymphocytes # (Manual) 0.2 L Monocytes # (Manual) Eosinophils # (Manual) INR D-Dimer ABG pH POC ABG pCO2 POC ABG pO2 63.2 L ABG pO2 ABG HCO3 ABG O2 Saturation ABG Base Excess ABG Hemoglobin ABG Oxyhemoglobin 89.6 L ABG Sodium ABG Potassium ABG Chloride ABG Glucose 165 H Oxyhemoglobin Carboxyhemoglobin 0.3 L Sodium Potassium Chloride Carbon Dioxide BUN 67 H Creatinine 3.4 H Glucose 153 H POC Glucose Hemoglobin A1c Lactic Acid Calcium 7.5 L Phosphorus Magnesium Ferritin Total Bilirubin 1.40 H AST 62 H ALT Lactate Dehydrogenase C-Reactive Protein Albumin 2.6 L Triglycerides Arterial Blood Glucose 165 H Arterial Blood Ionized Calcium 4.3 L Urine Creatinine Coronavirus (PCR) Crossmatch 01/25/21 01/25/21 01/25/21 05:59 12:00 17:17 WBC RBC Hgb Hct MCV MCH MCHC RDW Plt Count Lymph % (Auto) Lymph # (Auto) Seg Neutrophils % Seg Neuts % (Manual) Lymphocytes % (Manual) Monocytes % (Manual) Nucleated RBC % Seg Neutrophils # Seg Neutrophils # Man Lymphocytes # (Manual) Monocytes # (Manual) Eosinophils # (Manual) INR D-Dimer ABG pH POC ABG pCO2 POC ABG pO2 ABG pO2 ABG HCO3 ABG O2 Saturation ABG Base Excess ABG Hemoglobin ABG Oxyhemoglobin ABG Sodium ABG Potassium ABG Chloride ABG Glucose Oxyhemoglobin Carboxyhemoglobin Sodium Potassium Chloride Carbon Dioxide BUN Creatinine Glucose POC Glucose 140 H 143 H 149 H Hemoglobin A1c Lactic Acid Calcium Phosphorus Magnesium Ferritin Total Bilirubin AST ALT Lactate Dehydrogenase C-Reactive Protein Albumin Triglycerides Arterial Blood Glucose Arterial Blood Ionized Calcium Urine Creatinine Coronavirus (PCR) Crossmatch 01/25/21 01/26/21 01/26/21 23:41 03:43 05:46 WBC RBC Hgb Hct MCV MCH MCHC RDW Plt Count Lymph % (Auto) Lymph # (Auto) Seg Neutrophils % Seg Neuts % (Manual) Lymphocytes % (Manual) Monocytes % (Manual) Nucleated RBC % Seg Neutrophils # Seg Neutrophils # Man Lymphocytes # (Manual) Monocytes # (Manual) Eosinophils # (Manual) INR D-Dimer ABG pH POC ABG pCO2 POC ABG pO2 70.0 L ABG pO2 ABG HCO3 ABG O2 Saturation ABG Base Excess ABG Hemoglobin ABG Oxyhemoglobin 91.9 L ABG Sodium ABG Potassium ABG Chloride 109.0 H ABG Glucose 165 H Oxyhemoglobin Carboxyhemoglobin Sodium Potassium Chloride Carbon Dioxide BUN Creatinine Glucose POC Glucose 132 H 161 H Hemoglobin A1c Lactic Acid Calcium Phosphorus Magnesium Ferritin Total Bilirubin AST ALT Lactate Dehydrogenase C-Reactive Protein Albumin Triglycerides Arterial Blood Glucose 165 H Arterial Blood Ionized Calcium 4.5 L Urine Creatinine Coronavirus (PCR) Crossmatch 01/26/21 01/26/21 01/26/21 05:47 05:47 05:47 WBC RBC Hgb Hct 35.3 L MCV 96 H MCH 33 H MCHC RDW Plt Count Lymph % (Auto) Lymph # (Auto) Seg Neutrophils % Seg Neuts % (Manual) 96.0 H Lymphocytes % (Manual) 2.0 L Monocytes % (Manual) Nucleated RBC % Seg Neutrophils # Seg Neutrophils # Man Lymphocytes # (Manual) 0.1 L Monocytes # (Manual) Eosinophils # (Manual) INR D-Dimer > 26248 H ABG pH POC ABG pCO2 POC ABG pO2 ABG pO2 ABG HCO3 ABG O2 Saturation ABG Base Excess ABG Hemoglobin ABG Oxyhemoglobin ABG Sodium ABG Potassium ABG Chloride ABG Glucose Oxyhemoglobin Carboxyhemoglobin Sodium Potassium Chloride Carbon Dioxide BUN 57 H Creatinine 2.2 H Glucose 185 H POC Glucose Hemoglobin A1c Lactic Acid Calcium 8.1 L Phosphorus Magnesium Ferritin Total Bilirubin AST ALT Lactate Dehydrogenase C-Reactive Protein Albumin Triglycerides Arterial Blood Glucose Arterial Blood Ionized Calcium Urine Creatinine Coronavirus (PCR) Crossmatch 01/26/21 01/26/21 01/26/21 05:47 05:47 05:47 WBC RBC Hgb Hct MCV MCH MCHC RDW Plt Count Lymph % (Auto) Lymph # (Auto) Seg Neutrophils % Seg Neuts % (Manual) Lymphocytes % (Manual) Monocytes % (Manual) Nucleated RBC % Seg Neutrophils # Seg Neutrophils # Man Lymphocytes # (Manual) Monocytes # (Manual) Eosinophils # (Manual) INR D-Dimer ABG pH POC ABG pCO2 POC ABG pO2 ABG pO2 ABG HCO3 ABG O2 Saturation ABG Base Excess ABG Hemoglobin ABG Oxyhemoglobin ABG Sodium ABG Potassium ABG Chloride ABG Glucose Oxyhemoglobin Carboxyhemoglobin Sodium Potassium Chloride 107.1 H Carbon Dioxide BUN 56 H Creatinine 2.2 H Glucose 188 H POC Glucose Hemoglobin A1c Lactic Acid Calcium 8.0 L Phosphorus Magnesium Ferritin 1178.0 H Total Bilirubin 1.50 H AST ALT Lactate Dehydrogenase 588 H C-Reactive Protein 40.10 H Albumin 2.2 L Triglycerides Arterial Blood Glucose Arterial Blood Ionized Calcium Urine Creatinine Coronavirus (PCR) Crossmatch 01/26/21 01/26/21 01/26/21 11:34 18:17 23:20 WBC RBC Hgb Hct MCV MCH MCHC RDW Plt Count Lymph % (Auto) Lymph # (Auto) Seg Neutrophils % Seg Neuts % (Manual) Lymphocytes % (Manual) Monocytes % (Manual) Nucleated RBC % Seg Neutrophils # Seg Neutrophils # Man Lymphocytes # (Manual) Monocytes # (Manual) Eosinophils # (Manual) INR D-Dimer ABG pH POC ABG pCO2 POC ABG pO2 ABG pO2 ABG HCO3 ABG O2 Saturation ABG Base Excess ABG Hemoglobin ABG Oxyhemoglobin ABG Sodium ABG Potassium ABG Chloride ABG Glucose Oxyhemoglobin Carboxyhemoglobin Sodium Potassium Chloride Carbon Dioxide BUN Creatinine Glucose POC Glucose 129 H 205 H 155 H Hemoglobin A1c Lactic Acid Calcium Phosphorus Magnesium Ferritin Total Bilirubin AST ALT Lactate Dehydrogenase C-Reactive Protein Albumin Triglycerides Arterial Blood Glucose Arterial Blood Ionized Calcium Urine Creatinine Coronavirus (PCR) Crossmatch 01/27/21 01/27/21 01/27/21 02:45 05:29 05:29 WBC RBC 3.58 L Hgb 11.7 L Hct 34.9 L MCV 97 H MCH 33 H MCHC RDW Plt Count Lymph % (Auto) Lymph # (Auto) Seg Neutrophils % Seg Neuts % (Manual) 88.0 H Lymphocytes % (Manual) 7.0 L Monocytes % (Manual) Nucleated RBC % Seg Neutrophils # Seg Neutrophils # Man Lymphocytes # (Manual) 0.5 L Monocytes # (Manual) Eosinophils # (Manual) INR D-Dimer ABG pH 7.319 L POC ABG pCO2 50.7 H POC ABG pO2 63.0 L ABG pO2 ABG HCO3 ABG O2 Saturation ABG Base Excess ABG Hemoglobin ABG Oxyhemoglobin ABG Sodium 145.2 H ABG Potassium 5.1 H ABG Chloride 114.0 H ABG Glucose 178 H Oxyhemoglobin Carboxyhemoglobin Sodium Potassium Chloride Carbon Dioxide BUN Creatinine Glucose POC Glucose Hemoglobin A1c Lactic Acid Calcium Phosphorus Magnesium 4.00 H Ferritin Total Bilirubin AST ALT Lactate Dehydrogenase C-Reactive Protein Albumin Triglycerides Arterial Blood Glucose 178 H Arterial Blood Ionized Calcium Urine Creatinine Coronavirus (PCR) Crossmatch 01/27/21 01/27/21 01/27/21 05:29 05:29 05:31 WBC RBC Hgb Hct MCV MCH MCHC RDW Plt Count Lymph % (Auto) Lymph # (Auto) Seg Neutrophils % Seg Neuts % (Manual) Lymphocytes % (Manual) Monocytes % (Manual) Nucleated RBC % Seg Neutrophils # Seg Neutrophils # Man Lymphocytes # (Manual) Monocytes # (Manual) Eosinophils # (Manual) INR D-Dimer ABG pH POC ABG pCO2 POC ABG pO2 ABG pO2 ABG HCO3 ABG O2 Saturation ABG Base Excess ABG Hemoglobin ABG Oxyhemoglobin ABG Sodium ABG Potassium ABG Chloride ABG Glucose Oxyhemoglobin Carboxyhemoglobin Sodium Potassium 5.2 H Chloride 109.6 H Carbon Dioxide BUN 67 H Creatinine 2.8 H Glucose 195 H POC Glucose 176 H Hemoglobin A1c Lactic Acid Calcium 7.9 L Phosphorus Magnesium Ferritin Total Bilirubin AST ALT Lactate Dehydrogenase C-Reactive Protein Albumin Triglycerides 160 H Arterial Blood Glucose Arterial Blood Ionized Calcium Urine Creatinine Coronavirus (PCR) Crossmatch 01/27/21 01/27/21 01/27/21 11:27 18:08 23:30 WBC RBC Hgb Hct MCV MCH MCHC RDW Plt Count Lymph % (Auto) Lymph # (Auto) Seg Neutrophils % Seg Neuts % (Manual) Lymphocytes % (Manual) Monocytes % (Manual) Nucleated RBC % Seg Neutrophils # Seg Neutrophils # Man Lymphocytes # (Manual) Monocytes # (Manual) Eosinophils # (Manual) INR D-Dimer ABG pH POC ABG pCO2 POC ABG pO2 ABG pO2 ABG HCO3 ABG O2 Saturation ABG Base Excess ABG Hemoglobin ABG Oxyhemoglobin ABG Sodium ABG Potassium ABG Chloride ABG Glucose Oxyhemoglobin Carboxyhemoglobin Sodium Potassium Chloride Carbon Dioxide BUN Creatinine Glucose POC Glucose 189 H 212 H 175 H Hemoglobin A1c Lactic Acid Calcium Phosphorus Magnesium Ferritin Total Bilirubin AST ALT Lactate Dehydrogenase C-Reactive Protein Albumin Triglycerides Arterial Blood Glucose Arterial Blood Ionized Calcium Urine Creatinine Coronavirus (PCR) Crossmatch 01/28/21 01/28/21 01/28/21 03:58 04:00 04:00 WBC RBC Hgb Hct MCV MCH MCHC RDW Plt Count Lymph % (Auto) Lymph # (Auto) Seg Neutrophils % Seg Neuts % (Manual) Lymphocytes % (Manual) Monocytes % (Manual) Nucleated RBC % Seg Neutrophils # Seg Neutrophils # Man Lymphocytes # (Manual) Monocytes # (Manual) Eosinophils # (Manual) INR D-Dimer > 95138 H ABG pH POC ABG pCO2 POC ABG pO2 52.9 L ABG pO2 ABG HCO3 ABG O2 Saturation ABG Base Excess ABG Hemoglobin ABG Oxyhemoglobin 84.1 L ABG Sodium 148.9 H ABG Potassium ABG Chloride 117.0 H ABG Glucose 194 H Oxyhemoglobin Carboxyhemoglobin Sodium Potassium Chloride Carbon Dioxide BUN Creatinine Glucose POC Glucose Hemoglobin A1c Lactic Acid Calcium Phosphorus Magnesium Ferritin Total Bilirubin AST ALT Lactate Dehydrogenase 679 H C-Reactive Protein 17.10 H Albumin Triglycerides Arterial Blood Glucose 194 H Arterial Blood Ionized Calcium Urine Creatinine Coronavirus (PCR) Crossmatch 01/28/21 01/28/21 01/28/21 04:00 05:00 06:00 WBC RBC 3.59 L Hgb 11.6 L Hct 34.8 L MCV 97 H MCH MCHC RDW Plt Count Lymph % (Auto) Lymph # (Auto) Seg Neutrophils % Seg Neuts % (Manual) 96.0 H Lymphocytes % (Manual) 3.0 L Monocytes % (Manual) Nucleated RBC % Seg Neutrophils # Seg Neutrophils # Man Lymphocytes # (Manual) 0.2 L Monocytes # (Manual) Eosinophils # (Manual) INR D-Dimer ABG pH POC ABG pCO2 POC ABG pO2 ABG pO2 ABG HCO3 ABG O2 Saturation ABG Base Excess ABG Hemoglobin ABG Oxyhemoglobin ABG Sodium ABG Potassium ABG Chloride ABG Glucose Oxyhemoglobin Carboxyhemoglobin Sodium Potassium Chloride Carbon Dioxide BUN Creatinine Glucose POC Glucose 159 H Hemoglobin A1c Lactic Acid Calcium Phosphorus Magnesium Ferritin 798.0 H Total Bilirubin AST ALT Lactate Dehydrogenase C-Reactive Protein Albumin Triglycerides Arterial Blood Glucose Arterial Blood Ionized Calcium Urine Creatinine Coronavirus (PCR) Crossmatch 01/28/21 01/28/21 01/28/21 06:00 06:00 08:12 WBC RBC Hgb Hct MCV MCH MCHC RDW Plt Count Lymph % (Auto) Lymph # (Auto) Seg Neutrophils % Seg Neuts % (Manual) Lymphocytes % (Manual) Monocytes % (Manual) Nucleated RBC % Seg Neutrophils # Seg Neutrophils # Man Lymphocytes # (Manual) Monocytes # (Manual) Eosinophils # (Manual) INR D-Dimer ABG pH POC ABG pCO2 POC ABG pO2 ABG pO2 ABG HCO3 ABG O2 Saturation ABG Base Excess ABG Hemoglobin ABG Oxyhemoglobin ABG Sodium ABG Potassium ABG Chloride ABG Glucose Oxyhemoglobin Carboxyhemoglobin Sodium Potassium Chloride 111.9 H Carbon Dioxide BUN 59 H Creatinine 2.2 H Glucose 189 H POC Glucose 181 H Hemoglobin A1c Lactic Acid Calcium 8.1 L Phosphorus Magnesium 3.20 H Ferritin Total Bilirubin AST ALT Lactate Dehydrogenase C-Reactive Protein Albumin Triglycerides Arterial Blood Glucose Arterial Blood Ionized Calcium Urine Creatinine Coronavirus (PCR) Crossmatch 01/28/21 01/28/21 01/28/21 12:03 16:43 23:51 WBC RBC Hgb Hct MCV MCH MCHC RDW Plt Count Lymph % (Auto) Lymph # (Auto) Seg Neutrophils % Seg Neuts % (Manual) Lymphocytes % (Manual) Monocytes % (Manual) Nucleated RBC % Seg Neutrophils # Seg Neutrophils # Man Lymphocytes # (Manual) Monocytes # (Manual) Eosinophils # (Manual) INR D-Dimer ABG pH POC ABG pCO2 POC ABG pO2 ABG pO2 ABG HCO3 ABG O2 Saturation ABG Base Excess ABG Hemoglobin ABG Oxyhemoglobin ABG Sodium ABG Potassium ABG Chloride ABG Glucose Oxyhemoglobin Carboxyhemoglobin Sodium Potassium Chloride Carbon Dioxide BUN Creatinine Glucose POC Glucose 164 H 198 H 196 H Hemoglobin A1c Lactic Acid Calcium Phosphorus Magnesium Ferritin Total Bilirubin AST ALT Lactate Dehydrogenase C-Reactive Protein Albumin Triglycerides Arterial Blood Glucose Arterial Blood Ionized Calcium Urine Creatinine Coronavirus (PCR) Crossmatch 01/29/21 01/29/21 01/29/21 05:00 05:23 06:00 WBC RBC Hgb Hct MCV MCH MCHC RDW Plt Count Lymph % (Auto) Lymph # (Auto) Seg Neutrophils % Seg Neuts % (Manual) Lymphocytes % (Manual) Monocytes % (Manual) Nucleated RBC % Seg Neutrophils # Seg Neutrophils # Man Lymphocytes # (Manual) Monocytes # (Manual) Eosinophils # (Manual) INR D-Dimer ABG pH 7.119 L POC ABG pCO2 87.1 H POC ABG pO2 ABG pO2 ABG HCO3 ABG O2 Saturation ABG Base Excess ABG Hemoglobin ABG Oxyhemoglobin ABG Sodium 152.5 H ABG Potassium 5.7 H ABG Chloride 120.0 H ABG Glucose 217 H Oxyhemoglobin Carboxyhemoglobin Sodium 151 H Potassium 5.9 H D Chloride 117.8 H Carbon Dioxide BUN 54 H Creatinine 2.2 H Glucose 208 H POC Glucose 180 H Hemoglobin A1c Lactic Acid Calcium 7.9 L Phosphorus Magnesium Ferritin Total Bilirubin AST ALT Lactate Dehydrogenase C-Reactive Protein Albumin Triglycerides Arterial Blood Glucose 217 H Arterial Blood Ionized Calcium Urine Creatinine Coronavirus (PCR) Crossmatch 01/29/21 01/29/21 01/29/21 12:29 17:28 18:05 WBC RBC Hgb Hct MCV MCH MCHC RDW Plt Count Lymph % (Auto) Lymph # (Auto) Seg Neutrophils % Seg Neuts % (Manual) Lymphocytes % (Manual) Monocytes % (Manual) Nucleated RBC % Seg Neutrophils # Seg Neutrophils # Man Lymphocytes # (Manual) Monocytes # (Manual) Eosinophils # (Manual) INR D-Dimer ABG pH POC ABG pCO2 POC ABG pO2 ABG pO2 ABG HCO3 ABG O2 Saturation ABG Base Excess ABG Hemoglobin ABG Oxyhemoglobin ABG Sodium ABG Potassium ABG Chloride ABG Glucose Oxyhemoglobin Carboxyhemoglobin Sodium 151 H Potassium 5.5 H Chloride 118.2 H Carbon Dioxide BUN 52 H Creatinine 2.2 H Glucose 224 H POC Glucose 181 H 203 H Hemoglobin A1c Lactic Acid Calcium 8.0 L Phosphorus Magnesium Ferritin Total Bilirubin AST ALT Lactate Dehydrogenase C-Reactive Protein Albumin Triglycerides Arterial Blood Glucose Arterial Blood Ionized Calcium Urine Creatinine Coronavirus (PCR) Crossmatch 01/29/21 01/29/21 01/29/21 18:13 23:34 Unknown WBC RBC Hgb Hct MCV 101 H MCH MCHC RDW 15.7 H Plt Count Lymph % (Auto) Lymph # (Auto) Seg Neutrophils % Seg Neuts % (Manual) 95.0 H Lymphocytes % (Manual) 3.0 L Monocytes % (Manual) Nucleated RBC % Seg Neutrophils # Seg Neutrophils # Man 8.0 H Lymphocytes # (Manual) 0.3 L Monocytes # (Manual) Eosinophils # (Manual) INR D-Dimer ABG pH 7.223 L POC ABG pCO2 64.8 H POC ABG pO2 63.6 L ABG pO2 ABG HCO3 ABG O2 Saturation ABG Base Excess ABG Hemoglobin ABG Oxyhemoglobin 89.4 L ABG Sodium 152.9 H ABG Potassium 5.3 H ABG Chloride 121.0 H ABG Glucose 227 H Oxyhemoglobin Carboxyhemoglobin Sodium Potassium Chloride Carbon Dioxide BUN Creatinine Glucose POC Glucose 198 H Hemoglobin A1c Lactic Acid Calcium Phosphorus Magnesium Ferritin Total Bilirubin AST ALT Lactate Dehydrogenase C-Reactive Protein Albumin Triglycerides Arterial Blood Glucose 227 H Arterial Blood Ionized Calcium Urine Creatinine Coronavirus (PCR) Crossmatch 01/30/21 01/30/21 01/30/21 04:00 04:00 04:00 WBC RBC Hgb Hct MCV MCH MCHC RDW Plt Count Lymph % (Auto) Lymph # (Auto) Seg Neutrophils % Seg Neuts % (Manual) Lymphocytes % (Manual) Monocytes % (Manual) Nucleated RBC % Seg Neutrophils # Seg Neutrophils # Man Lymphocytes # (Manual) Monocytes # (Manual) Eosinophils # (Manual) INR D-Dimer > 69721 H ABG pH POC ABG pCO2 POC ABG pO2 ABG pO2 ABG HCO3 ABG O2 Saturation ABG Base Excess ABG Hemoglobin ABG Oxyhemoglobin ABG Sodium ABG Potassium ABG Chloride ABG Glucose Oxyhemoglobin Carboxyhemoglobin Sodium Potassium Chloride Carbon Dioxide BUN Creatinine Glucose 234 H POC Glucose Hemoglobin A1c Lactic Acid Calcium Phosphorus Magnesium Ferritin 763.9 H Total Bilirubin AST ALT Lactate Dehydrogenase 424 H C-Reactive Protein 23.90 H Albumin Triglycerides Arterial Blood Glucose Arterial Blood Ionized Calcium Urine Creatinine Coronavirus (PCR) Crossmatch 01/30/21 01/30/21 01/30/21 04:24 05:00 05:16 WBC RBC 3.57 L Hgb 11.3 L Hct 35.4 L MCV 99 H MCH MCHC RDW 15.6 H Plt Count Lymph % (Auto) Lymph # (Auto) Seg Neutrophils % Seg Neuts % (Manual) 97.0 H Lymphocytes % (Manual) 1.0 L Monocytes % (Manual) Nucleated RBC % Seg Neutrophils # Seg Neutrophils # Man 8.6 H Lymphocytes # (Manual) 0.1 L Monocytes # (Manual) Eosinophils # (Manual) INR D-Dimer ABG pH 7.235 L POC ABG pCO2 69.7 H POC ABG pO2 61.0 L ABG pO2 ABG HCO3 ABG O2 Saturation ABG Base Excess ABG Hemoglobin ABG Oxyhemoglobin 89 L ABG Sodium 154.2 H ABG Potassium 5.4 H ABG Chloride 121.0 H ABG Glucose 247 H Oxyhemoglobin Carboxyhemoglobin Sodium Potassium Chloride Carbon Dioxide BUN Creatinine Glucose POC Glucose 238 H Hemoglobin A1c Lactic Acid Calcium Phosphorus Magnesium Ferritin Total Bilirubin AST ALT Lactate Dehydrogenase C-Reactive Protein Albumin Triglycerides Arterial Blood Glucose 247 H Arterial Blood Ionized Calcium Urine Creatinine Coronavirus (PCR) Crossmatch 01/30/21 01/30/21 01/30/21 06:00 11:28 12:00 WBC RBC Hgb Hct MCV MCH MCHC RDW Plt Count Lymph % (Auto) Lymph # (Auto) Seg Neutrophils % Seg Neuts % (Manual) Lymphocytes % (Manual) Monocytes % (Manual) Nucleated RBC % Seg Neutrophils # Seg Neutrophils # Man Lymphocytes # (Manual) Monocytes # (Manual) Eosinophils # (Manual) INR D-Dimer ABG pH POC ABG pCO2 POC ABG pO2 ABG pO2 ABG HCO3 ABG O2 Saturation ABG Base Excess ABG Hemoglobin ABG Oxyhemoglobin ABG Sodium ABG Potassium ABG Chloride ABG Glucose Oxyhemoglobin Carboxyhemoglobin Sodium 152 H Potassium 5.3 H Chloride 120.5 H Carbon Dioxide BUN 50 H Creatinine 2.3 H Glucose 239 H POC Glucose 153 H Hemoglobin A1c Lactic Acid Calcium 8.2 L Phosphorus Magnesium 2.60 H Ferritin Total Bilirubin AST ALT Lactate Dehydrogenase C-Reactive Protein Albumin Triglycerides 293 H Arterial Blood Glucose Arterial Blood Ionized Calcium Urine Creatinine 53.0 H Coronavirus (PCR) Crossmatch 01/30/21 01/30/21 01/31/21 18:49 23:06 04:00 WBC RBC Hgb Hct MCV MCH MCHC RDW Plt Count Lymph % (Auto) Lymph # (Auto) Seg Neutrophils % Seg Neuts % (Manual) Lymphocytes % (Manual) Monocytes % (Manual) Nucleated RBC % Seg Neutrophils # Seg Neutrophils # Man Lymphocytes # (Manual) Monocytes # (Manual) Eosinophils # (Manual) INR D-Dimer ABG pH POC ABG pCO2 POC ABG pO2 ABG pO2 ABG HCO3 ABG O2 Saturation ABG Base Excess ABG Hemoglobin ABG Oxyhemoglobin ABG Sodium ABG Potassium ABG Chloride ABG Glucose Oxyhemoglobin Carboxyhemoglobin Sodium 156 H Potassium 5.9 H Chloride 122.6 H Carbon Dioxide BUN 61 H Creatinine 3.2 H Glucose 205 H POC Glucose 220 H 192 H Hemoglobin A1c Lactic Acid Calcium 8.0 L Phosphorus Magnesium Ferritin Total Bilirubin AST ALT Lactate Dehydrogenase C-Reactive Protein Albumin Triglycerides Arterial Blood Glucose Arterial Blood Ionized Calcium Urine Creatinine Coronavirus (PCR) Crossmatch 01/31/21 01/31/21 01/31/21 04:40 05:17 11:33 WBC RBC Hgb Hct MCV MCH MCHC RDW Plt Count Lymph % (Auto) Lymph # (Auto) Seg Neutrophils % Seg Neuts % (Manual) Lymphocytes % (Manual) Monocytes % (Manual) Nucleated RBC % Seg Neutrophils # Seg Neutrophils # Man Lymphocytes # (Manual) Monocytes # (Manual) Eosinophils # (Manual) INR D-Dimer ABG pH 7.161 L* POC ABG pCO2 POC ABG pO2 ABG pO2 142.2 H ABG HCO3 28.3 H ABG O2 Saturation ABG Base Excess -3.2 L ABG Hemoglobin ABG Oxyhemoglobin ABG Sodium ABG Potassium ABG Chloride ABG Glucose Oxyhemoglobin Carboxyhemoglobin Sodium Potassium Chloride Carbon Dioxide BUN Creatinine Glucose POC Glucose 200 H 167 H Hemoglobin A1c Lactic Acid Calcium Phosphorus Magnesium Ferritin Total Bilirubin AST ALT Lactate Dehydrogenase C-Reactive Protein Albumin Triglycerides Arterial Blood Glucose Arterial Blood Ionized Calcium Urine Creatinine Coronavirus (PCR) Crossmatch 01/31/21 01/31/21 01/31/21 14:00 17:10 23:24 WBC RBC Hgb Hct MCV MCH MCHC RDW Plt Count Lymph % (Auto) Lymph # (Auto) Seg Neutrophils % Seg Neuts % (Manual) Lymphocytes % (Manual) Monocytes % (Manual) Nucleated RBC % Seg Neutrophils # Seg Neutrophils # Man Lymphocytes # (Manual) Monocytes # (Manual) Eosinophils # (Manual) INR D-Dimer ABG pH 7.205 L POC ABG pCO2 POC ABG pO2 ABG pO2 90.9 H ABG HCO3 26.5 H ABG O2 Saturation ABG Base Excess -2.7 L ABG Hemoglobin 12.3 L ABG Oxyhemoglobin ABG Sodium ABG Potassium ABG Chloride ABG Glucose Oxyhemoglobin 93.9 L Carboxyhemoglobin Sodium Potassium Chloride Carbon Dioxide BUN Creatinine Glucose POC Glucose 190 H 203 H Hemoglobin A1c Lactic Acid Calcium Phosphorus Magnesium Ferritin Total Bilirubin AST ALT Lactate Dehydrogenase C-Reactive Protein Albumin Triglycerides Arterial Blood Glucose Arterial Blood Ionized Calcium Urine Creatinine Coronavirus (PCR) Crossmatch 02/01/21 02/01/21 02/01/21 05:15 06:22 10:20 WBC RBC Hgb Hct MCV MCH MCHC RDW Plt Count Lymph % (Auto) Lymph # (Auto) Seg Neutrophils % Seg Neuts % (Manual) Lymphocytes % (Manual) Monocytes % (Manual) Nucleated RBC % Seg Neutrophils # Seg Neutrophils # Man Lymphocytes # (Manual) Monocytes # (Manual) Eosinophils # (Manual) INR D-Dimer ABG pH 6.920 L* 7.116 L* POC ABG pCO2 POC ABG pO2 ABG pO2 102.9 H 113.1 H ABG HCO3 28.2 H ABG O2 Saturation 92.9 L ABG Base Excess -6.9 L -5.8 L ABG Hemoglobin 11.6 L 9.5 L ABG Oxyhemoglobin ABG Sodium ABG Potassium ABG Chloride ABG Glucose Oxyhemoglobin 90.5 L 94.6 L Carboxyhemoglobin Sodium Potassium Chloride Carbon Dioxide BUN Creatinine Glucose POC Glucose 221 H Hemoglobin A1c Lactic Acid Calcium Phosphorus Magnesium Ferritin Total Bilirubin AST ALT Lactate Dehydrogenase C-Reactive Protein Albumin Triglycerides Arterial Blood Glucose Arterial Blood Ionized Calcium Urine Creatinine Coronavirus (PCR) Crossmatch 02/01/21 02/01/21 02/01/21 11:12 12:35 16:00 WBC RBC Hgb Hct MCV MCH MCHC RDW Plt Count Lymph % (Auto) Lymph # (Auto) Seg Neutrophils % Seg Neuts % (Manual) Lymphocytes % (Manual) Monocytes % (Manual) Nucleated RBC % Seg Neutrophils # Seg Neutrophils # Man Lymphocytes # (Manual) Monocytes # (Manual) Eosinophils # (Manual) INR D-Dimer ABG pH 7.155 L* POC ABG pCO2 POC ABG pO2 ABG pO2 94.6 H ABG HCO3 ABG O2 Saturation ABG Base Excess -6.5 L ABG Hemoglobin 13.1 L ABG Oxyhemoglobin ABG Sodium ABG Potassium ABG Chloride ABG Glucose Oxyhemoglobin 93.7 L Carboxyhemoglobin Sodium 155 H Potassium 5.1 H Chloride 120.5 H Carbon Dioxide BUN 90 H Creatinine 6.1 H D Glucose 238 H POC Glucose 207 H Hemoglobin A1c Lactic Acid Calcium 7.4 L Phosphorus Magnesium Ferritin Total Bilirubin AST ALT Lactate Dehydrogenase C-Reactive Protein Albumin Triglycerides Arterial Blood Glucose Arterial Blood Ionized Calcium Urine Creatinine Coronavirus (PCR) Crossmatch 02/01/21 02/01/21 02/02/21 17:10 23:47 04:04 WBC RBC 3.02 L Hgb 9.8 L Hct 30.7 L MCV 102 H MCH MCHC RDW 15.6 H Plt Count Lymph % (Auto) 4.2 L Lymph # (Auto) 0.3 L Seg Neutrophils % Seg Neuts % (Manual) Lymphocytes % (Manual) Monocytes % (Manual) Nucleated RBC % Seg Neutrophils # Seg Neutrophils # Man Lymphocytes # (Manual) Monocytes # (Manual) Eosinophils # (Manual) INR D-Dimer ABG pH POC ABG pCO2 POC ABG pO2 ABG pO2 ABG HCO3 ABG O2 Saturation ABG Base Excess ABG Hemoglobin ABG Oxyhemoglobin ABG Sodium ABG Potassium ABG Chloride ABG Glucose Oxyhemoglobin Carboxyhemoglobin Sodium Potassium Chloride Carbon Dioxide BUN Creatinine Glucose POC Glucose 238 H 235 H Hemoglobin A1c Lactic Acid Calcium Phosphorus Magnesium Ferritin Total Bilirubin AST ALT Lactate Dehydrogenase C-Reactive Protein Albumin Triglycerides Arterial Blood Glucose Arterial Blood Ionized Calcium Urine Creatinine Coronavirus (PCR) Crossmatch 04/03/2002/02/21 02/02/21 05:18 05:35 11:28 WBC RBC Hgb Hct MCV MCH MCHC RDW Plt Count Lymph % (Auto) Lymph # (Auto) Seg Neutrophils % Seg Neuts % (Manual) Lymphocytes % (Manual) Monocytes % (Manual) Nucleated RBC % Seg Neutrophils # Seg Neutrophils # Man Lymphocytes # (Manual) Monocytes # (Manual) Eosinophils # (Manual) INR D-Dimer ABG pH 7.195 L* POC ABG pCO2 POC ABG pO2 ABG pO2 72.5 L ABG HCO3 ABG O2 Saturation 91.2 L ABG Base Excess -5.3 L ABG Hemoglobin 6.0 L ABG Oxyhemoglobin ABG Sodium ABG Potassium ABG Chloride ABG Glucose Oxyhemoglobin 89.1 L Carboxyhemoglobin Sodium Potassium Chloride 110.4 H Carbon Dioxide BUN 92 H Creatinine Glucose POC Glucose 239 H Hemoglobin A1c Lactic Acid Calcium Phosphorus Magnesium Ferritin Total Bilirubin AST ALT Lactate Dehydrogenase C-Reactive Protein Albumin Triglycerides Arterial Blood Glucose Arterial Blood Ionized Calcium Urine Creatinine Coronavirus (PCR) Crossmatch 02/02/21 02/02/21 02/02/21 11:53 16:00 18:04 WBC RBC Hgb Hct MCV MCH MCHC RDW Plt Count Lymph % (Auto) Lymph # (Auto) Seg Neutrophils % Seg Neuts % (Manual) Lymphocytes % (Manual) Monocytes % (Manual) Nucleated RBC % Seg Neutrophils # Seg Neutrophils # Man Lymphocytes # (Manual) Monocytes # (Manual) Eosinophils # (Manual) INR D-Dimer ABG pH POC ABG pCO2 POC ABG pO2 ABG pO2 ABG HCO3 ABG O2 Saturation ABG Base Excess ABG Hemoglobin ABG Oxyhemoglobin ABG Sodium ABG Potassium ABG Chloride ABG Glucose Oxyhemoglobin Carboxyhemoglobin Sodium Potassium Chloride Carbon Dioxide BUN Creatinine Glucose POC Glucose 248 H 199 H Hemoglobin A1c 6.3 H Lactic Acid Calcium Phosphorus Magnesium Ferritin Total Bilirubin AST ALT Lactate Dehydrogenase C-Reactive Protein Albumin Triglycerides Arterial Blood Glucose Arterial Blood Ionized Calcium Urine Creatinine Coronavirus (PCR) Crossmatch 02/02/21 02/03/21 02/03/21 23:31 03:12 04:10 WBC RBC 3.06 L Hgb 9.7 L Hct 30.4 L MCV 99 H MCH MCHC RDW 15.3 H Plt Count Lymph % (Auto) 6.1 L Lymph # (Auto) 0.5 L Seg Neutrophils % 86.1 H Seg Neuts % (Manual) Lymphocytes % (Manual) Monocytes % (Manual) Nucleated RBC % Seg Neutrophils # Seg Neutrophils # Man Lymphocytes # (Manual) Monocytes # (Manual) Eosinophils # (Manual) INR D-Dimer ABG pH 7.199 L POC ABG pCO2 48.3 H POC ABG pO2 68.3 L ABG pO2 ABG HCO3 ABG O2 Saturation ABG Base Excess ABG Hemoglobin 10.2 L ABG Oxyhemoglobin 89.2 L ABG Sodium 155.0 H ABG Potassium 4.6 H ABG Chloride 121.0 H ABG Glucose 166 H Oxyhemoglobin Carboxyhemoglobin 0.3 L Sodium Potassium Chloride Carbon Dioxide BUN Creatinine Glucose POC Glucose 200 H Hemoglobin A1c Lactic Acid Calcium Phosphorus Magnesium Ferritin Total Bilirubin AST ALT Lactate Dehydrogenase C-Reactive Protein Albumin Triglycerides Arterial Blood Glucose 166 H Arterial Blood Ionized Calcium 4.1 L Urine Creatinine Coronavirus (PCR) Crossmatch 02/03/21 02/03/21 02/03/21 04:10 05:34 11:51 WBC RBC Hgb Hct MCV MCH MCHC RDW Plt Count Lymph % (Auto) Lymph # (Auto) Seg Neutrophils % Seg Neuts % (Manual) Lymphocytes % (Manual) Monocytes % (Manual) Nucleated RBC % Seg Neutrophils # Seg Neutrophils # Man Lymphocytes # (Manual) Monocytes # (Manual) Eosinophils # (Manual) INR D-Dimer ABG pH POC ABG pCO2 POC ABG pO2 ABG pO2 ABG HCO3 ABG O2 Saturation ABG Base Excess ABG Hemoglobin ABG Oxyhemoglobin ABG Sodium ABG Potassium ABG Chloride ABG Glucose Oxyhemoglobin Carboxyhemoglobin Sodium 154 H D Potassium Chloride 116.7 H Carbon Dioxide 20 L BUN 130 H Creatinine 9.2 H D Glucose 160 H POC Glucose 130 H 154 H Hemoglobin A1c Lactic Acid Calcium 6.7 L Phosphorus 8.60 H Magnesium Ferritin Total Bilirubin AST ALT Lactate Dehydrogenase C-Reactive Protein Albumin Triglycerides Arterial Blood Glucose Arterial Blood Ionized Calcium Urine Creatinine Coronavirus (PCR) Crossmatch 02/03/21 02/03/21 02/04/21 16:49 23:22 03:48 WBC RBC Hgb Hct MCV MCH MCHC RDW Plt Count Lymph % (Auto) Lymph # (Auto) Seg Neutrophils % Seg Neuts % (Manual) Lymphocytes % (Manual) Monocytes % (Manual) Nucleated RBC % Seg Neutrophils # Seg Neutrophils # Man Lymphocytes # (Manual) Monocytes # (Manual) Eosinophils # (Manual) INR D-Dimer ABG pH 7.201 L POC ABG pCO2 54.5 H POC ABG pO2 74.0 L ABG pO2 ABG HCO3 ABG O2 Saturation ABG Base Excess ABG Hemoglobin 9.7 L ABG Oxyhemoglobin 91.1 L ABG Sodium 146.2 H ABG Potassium ABG Chloride 114.0 H ABG Glucose 155 H Oxyhemoglobin Carboxyhemoglobin Sodium Potassium Chloride Carbon Dioxide BUN Creatinine Glucose POC Glucose 164 H 152 H Hemoglobin A1c Lactic Acid Calcium Phosphorus Magnesium Ferritin Total Bilirubin AST ALT Lactate Dehydrogenase C-Reactive Protein Albumin Triglycerides Arterial Blood Glucose 155 H Arterial Blood Ionized Calcium 3.9 L Urine Creatinine Coronavirus (PCR) Crossmatch 02/04/21 02/04/21 02/04/21 04:45 04:45 04:45 WBC RBC 2.75 L Hgb 9.1 L Hct 26.9 L MCV 98 H MCH 33 H MCHC RDW Plt Count Lymph % (Auto) 6.8 L Lymph # (Auto) 0.5 L Seg Neutrophils % 87.2 H Seg Neuts % (Manual) Lymphocytes % (Manual) Monocytes % (Manual) Nucleated RBC % Seg Neutrophils # Seg Neutrophils # Man Lymphocytes # (Manual) Monocytes # (Manual) Eosinophils # (Manual) INR D-Dimer ABG pH POC ABG pCO2 POC ABG pO2 ABG pO2 ABG HCO3 ABG O2 Saturation ABG Base Excess ABG Hemoglobin ABG Oxyhemoglobin ABG Sodium ABG Potassium ABG Chloride ABG Glucose Oxyhemoglobin Carboxyhemoglobin Sodium 149 H Potassium Chloride 111.5 H Carbon Dioxide BUN 99 H Creatinine 8.5 H Glucose 139 H POC Glucose Hemoglobin A1c Lactic Acid Calcium 6.8 L Phosphorus 8.40 H Magnesium Ferritin Total Bilirubin AST ALT Lactate Dehydrogenase C-Reactive Protein Albumin Triglycerides Arterial Blood Glucose Arterial Blood Ionized Calcium Urine Creatinine Coronavirus (PCR) Crossmatch 02/04/21 02/04/21 02/04/21 06:05 11:44 18:00 WBC RBC Hgb Hct MCV MCH MCHC RDW Plt Count Lymph % (Auto) Lymph # (Auto) Seg Neutrophils % Seg Neuts % (Manual) Lymphocytes % (Manual) Monocytes % (Manual) Nucleated RBC % Seg Neutrophils # Seg Neutrophils # Man Lymphocytes # (Manual) Monocytes # (Manual) Eosinophils # (Manual) INR D-Dimer ABG pH POC ABG pCO2 POC ABG pO2 ABG pO2 ABG HCO3 ABG O2 Saturation ABG Base Excess ABG Hemoglobin ABG Oxyhemoglobin ABG Sodium ABG Potassium ABG Chloride ABG Glucose Oxyhemoglobin Carboxyhemoglobin Sodium Potassium Chloride Carbon Dioxide BUN Creatinine Glucose POC Glucose 138 H 129 H 163 H Hemoglobin A1c Lactic Acid Calcium Phosphorus Magnesium Ferritin Total Bilirubin AST ALT Lactate Dehydrogenase C-Reactive Protein Albumin Triglycerides Arterial Blood Glucose Arterial Blood Ionized Calcium Urine Creatinine Coronavirus (PCR) Crossmatch 02/04/21 02/05/21 02/05/21 23:48 01:50 01:50 WBC RBC 2.43 L Hgb 8.3 L Hct 23.6 L MCV 97 H MCH 34 H MCHC 35 H RDW Plt Count 137 L Lymph % (Auto) 8.4 L Lymph # (Auto) 0.6 L Seg Neutrophils % 86.1 H Seg Neuts % (Manual) Lymphocytes % (Manual) Monocytes % (Manual) Nucleated RBC % Seg Neutrophils # Seg Neutrophils # Man Lymphocytes # (Manual) Monocytes # (Manual) Eosinophils # (Manual) INR D-Dimer ABG pH POC ABG pCO2 POC ABG pO2 ABG pO2 ABG HCO3 ABG O2 Saturation ABG Base Excess ABG Hemoglobin ABG Oxyhemoglobin ABG Sodium ABG Potassium ABG Chloride ABG Glucose Oxyhemoglobin Carboxyhemoglobin Sodium Potassium Chloride Carbon Dioxide BUN Creatinine Glucose POC Glucose 157 H Hemoglobin A1c Lactic Acid Calcium Phosphorus 5.60 H D Magnesium Ferritin Total Bilirubin AST ALT Lactate Dehydrogenase C-Reactive Protein Albumin Triglycerides Arterial Blood Glucose Arterial Blood Ionized Calcium Urine Creatinine Coronavirus (PCR) Crossmatch 02/05/21 02/05/21 02/05/21 03:44 05:27 09:15 WBC RBC Hgb Hct MCV MCH MCHC RDW Plt Count Lymph % (Auto) Lymph # (Auto) Seg Neutrophils % Seg Neuts % (Manual) Lymphocytes % (Manual) Monocytes % (Manual) Nucleated RBC % Seg Neutrophils # Seg Neutrophils # Man Lymphocytes # (Manual) Monocytes # (Manual) Eosinophils # (Manual) INR D-Dimer ABG pH 7.202 L POC ABG pCO2 63.7 H POC ABG pO2 69.0 L ABG pO2 ABG HCO3 ABG O2 Saturation ABG Base Excess ABG Hemoglobin 9.4 L ABG Oxyhemoglobin ABG Sodium ABG Potassium ABG Chloride 108.0 H ABG Glucose 186 H Oxyhemoglobin Carboxyhemoglobin Sodium Potassium Chloride Carbon Dioxide BUN 78 H Creatinine 8.0 H Glucose 163 H POC Glucose 157 H Hemoglobin A1c Lactic Acid Calcium 6.3 L Phosphorus Magnesium Ferritin Total Bilirubin AST ALT Lactate Dehydrogenase C-Reactive Protein Albumin Triglycerides Arterial Blood Glucose 186 H Arterial Blood Ionized Calcium 3.9 L Urine Creatinine Coronavirus (PCR) Crossmatch 02/05/21 02/05/21 02/05/21 11:47 17:39 23:40 WBC RBC Hgb Hct MCV MCH MCHC RDW Plt Count Lymph % (Auto) Lymph # (Auto) Seg Neutrophils % Seg Neuts % (Manual) Lymphocytes % (Manual) Monocytes % (Manual) Nucleated RBC % Seg Neutrophils # Seg Neutrophils # Man Lymphocytes # (Manual) Monocytes # (Manual) Eosinophils # (Manual) INR D-Dimer ABG pH 7.273 L POC ABG pCO2 62.1 H POC ABG pO2 72.0 L ABG pO2 ABG HCO3 ABG O2 Saturation ABG Base Excess ABG Hemoglobin 9.1 L ABG Oxyhemoglobin 91.3 L ABG Sodium ABG Potassium 3.1 L ABG Chloride ABG Glucose 125 H Oxyhemoglobin Carboxyhemoglobin Sodium Potassium Chloride Carbon Dioxide BUN Creatinine Glucose POC Glucose 126 H 126 H Hemoglobin A1c Lactic Acid Calcium Phosphorus Magnesium Ferritin Total Bilirubin AST ALT Lactate Dehydrogenase C-Reactive Protein Albumin Triglycerides Arterial Blood Glucose 125 H Arterial Blood Ionized Calcium 4.0 L Urine Creatinine Coronavirus (PCR) Crossmatch 02/06/21 02/06/21 02/06/21 04:30 04:57 09:45 WBC RBC Hgb Hct MCV MCH MCHC RDW Plt Count Lymph % (Auto) Lymph # (Auto) Seg Neutrophils % Seg Neuts % (Manual) Lymphocytes % (Manual) Monocytes % (Manual) Nucleated RBC % Seg Neutrophils # Seg Neutrophils # Man Lymphocytes # (Manual) Monocytes # (Manual) Eosinophils # (Manual) INR D-Dimer ABG pH 7.159 L 7.138 L* POC ABG pCO2 76.3 H POC ABG pO2 66.9 L ABG pO2 ABG HCO3 ABG O2 Saturation 93.4 L ABG Base Excess -6.0 L ABG Hemoglobin 11.2 L 11.7 L ABG Oxyhemoglobin 88.2 L ABG Sodium ABG Potassium ABG Chloride ABG Glucose 134 H Oxyhemoglobin 91.2 L Carboxyhemoglobin Sodium Potassium Chloride Carbon Dioxide BUN Creatinine Glucose POC Glucose 124 H Hemoglobin A1c Lactic Acid Calcium Phosphorus Magnesium Ferritin Total Bilirubin AST ALT Lactate Dehydrogenase C-Reactive Protein Albumin Triglycerides Arterial Blood Glucose 134 H Arterial Blood Ionized Calcium 3.9 L Urine Creatinine Coronavirus (PCR) Crossmatch 02/06/21 02/06/21 02/06/21 11:11 17:00 17:00 WBC RBC Hgb Hct MCV MCH MCHC RDW Plt Count Lymph % (Auto) Lymph # (Auto) Seg Neutrophils % Seg Neuts % (Manual) Lymphocytes % (Manual) Monocytes % (Manual) Nucleated RBC % Seg Neutrophils # Seg Neutrophils # Man Lymphocytes # (Manual) Monocytes # (Manual) Eosinophils # (Manual) INR D-Dimer ABG pH 7.158 L* POC ABG pCO2 POC ABG pO2 ABG pO2 109.8 H ABG HCO3 28.7 H ABG O2 Saturation ABG Base Excess -2.5 L ABG Hemoglobin ABG Oxyhemoglobin ABG Sodium ABG Potassium ABG Chloride ABG Glucose Oxyhemoglobin 94.5 L Carboxyhemoglobin Sodium Potassium Chloride Carbon Dioxide BUN Creatinine Glucose POC Glucose 120 H Hemoglobin A1c Lactic Acid Calcium Phosphorus Magnesium Ferritin Total Bilirubin AST ALT Lactate Dehydrogenase C-Reactive Protein Albumin Triglycerides 503 H Arterial Blood Glucose Arterial Blood Ionized Calcium Urine Creatinine Coronavirus (PCR) Crossmatch 02/06/21 02/06/21 02/06/21 17:28 20:16 Unknown WBC 13.5 H RBC 2.98 L Hgb 9.3 L Hct 28.6 L MCV 96 H MCH MCHC RDW Plt Count Lymph % (Auto) Lymph # (Auto) Seg Neutrophils % Seg Neuts % (Manual) 87.0 H Lymphocytes % (Manual) 7.0 L Monocytes % (Manual) Nucleated RBC % Seg Neutrophils # Seg Neutrophils # Man 11.7 H Lymphocytes # (Manual) 0.9 L Monocytes # (Manual) Eosinophils # (Manual) 0.5 H INR D-Dimer ABG pH POC ABG pCO2 POC ABG pO2 ABG pO2 ABG HCO3 ABG O2 Saturation ABG Base Excess ABG Hemoglobin ABG Oxyhemoglobin ABG Sodium ABG Potassium ABG Chloride ABG Glucose Oxyhemoglobin Carboxyhemoglobin Sodium Potassium Chloride Carbon Dioxide BUN Creatinine Glucose POC Glucose 147 H 164 H Hemoglobin A1c Lactic Acid Calcium Phosphorus Magnesium Ferritin Total Bilirubin AST ALT Lactate Dehydrogenase C-Reactive Protein Albumin Triglycerides Arterial Blood Glucose Arterial Blood Ionized Calcium Urine Creatinine Coronavirus (PCR) Crossmatch 0402/07/21 02/07/21 Unknown : 04:00 WBC 12.0 H RBC 2.61 L Hgb 8.2 L Hct 24.5 L MCV MCH MCHC RDW Plt Count Lymph % (Auto) 8.9 L Lymph # (Auto) 1.1 L Seg Neutrophils % 86.3 H Seg Neuts % (Manual) Lymphocytes % (Manual) Monocytes % (Manual) Nucleated RBC % Seg Neutrophils # 10.3 H Seg Neutrophils # Man Lymphocytes # (Manual) Monocytes # (Manual) Eosinophils # (Manual) INR D-Dimer ABG pH POC ABG pCO2 POC ABG pO2 ABG pO2 ABG HCO3 ABG O2 Saturation ABG Base Excess ABG Hemoglobin ABG Oxyhemoglobin ABG Sodium ABG Potassium ABG Chloride ABG Glucose Oxyhemoglobin Carboxyhemoglobin Sodium Potassium 3.5 L Chloride Carbon Dioxide BUN 58 H Creatinine 6.6 H Glucose 107 H POC Glucose 173 H Hemoglobin A1c Lactic Acid Calcium 6.7 L Phosphorus 8.00 H D Magnesium Ferritin Total Bilirubin AST ALT Lactate Dehydrogenase C-Reactive Protein Albumin Triglycerides Arterial Blood Glucose Arterial Blood Ionized Calcium Urine Creatinine Coronavirus (PCR) Crossmatch 02/07/21 02/07/21 02/07/21 04:00 04:45 11:49 WBC RBC Hgb Hct MCV MCH MCHC RDW Plt Count Lymph % (Auto) Lymph # (Auto) Seg Neutrophils % Seg Neuts % (Manual) Lymphocytes % (Manual) Monocytes % (Manual) Nucleated RBC % Seg Neutrophils # Seg Neutrophils # Man Lymphocytes # (Manual) Monocytes # (Manual) Eosinophils # (Manual) INR D-Dimer ABG pH 7.287 L POC ABG pCO2 64.8 H POC ABG pO2 74.0 L ABG pO2 ABG HCO3 ABG O2 Saturation ABG Base Excess ABG Hemoglobin 9.1 L ABG Oxyhemoglobin 92.0 L ABG Sodium ABG Potassium 2.8 L ABG Chloride ABG Glucose 226 H Oxyhemoglobin Carboxyhemoglobin Sodium Potassium Chloride Carbon Dioxide BUN Creatinine Glucose POC Glucose 170 H Hemoglobin A1c Lactic Acid Calcium Phosphorus 5.50 H D Magnesium Ferritin Total Bilirubin AST ALT Lactate Dehydrogenase C-Reactive Protein Albumin Triglycerides Arterial Blood Glucose 226 H Arterial Blood Ionized Calcium 3.7 L Urine Creatinine Coronavirus (PCR) Crossmatch 02/07/21 02/07/21 02/07/21 13:48 17:45 23:02 WBC RBC Hgb Hct MCV MCH MCHC RDW Plt Count Lymph % (Auto) Lymph # (Auto) Seg Neutrophils % Seg Neuts % (Manual) Lymphocytes % (Manual) Monocytes % (Manual) Nucleated RBC % Seg Neutrophils # Seg Neutrophils # Man Lymphocytes # (Manual) Monocytes # (Manual) Eosinophils # (Manual) INR D-Dimer ABG pH POC ABG pCO2 POC ABG pO2 ABG pO2 ABG HCO3 ABG O2 Saturation ABG Base Excess ABG Hemoglobin ABG Oxyhemoglobin ABG Sodium ABG Potassium ABG Chloride ABG Glucose Oxyhemoglobin Carboxyhemoglobin Sodium 136 L Potassium 2.6 L* D Chloride 95.1 L Carbon Dioxide 33 H D BUN 30 H Creatinine 3.6 H Glucose 184 H POC Glucose 172 H 172 H Hemoglobin A1c Lactic Acid Calcium 6.9 L Phosphorus Magnesium Ferritin Total Bilirubin AST ALT Lactate Dehydrogenase C-Reactive Protein Albumin Triglycerides Arterial Blood Glucose Arterial Blood Ionized Calcium Urine Creatinine Coronavirus (PCR) Crossmatch 02/08/21 02/08/21 02/08/21 05:22 06:00 06:00 WBC RBC 2.21 L Hgb 7.2 L Hct 21.0 L MCV 95 H MCH MCHC RDW Plt Count Lymph % (Auto) Lymph # (Auto) Seg Neutrophils % Seg Neuts % (Manual) 87.0 H Lymphocytes % (Manual) 4.0 L Monocytes % (Manual) Nucleated RBC % Seg Neutrophils # Seg Neutrophils # Man 8.5 H Lymphocytes # (Manual) 0.4 L Monocytes # (Manual) Eosinophils # (Manual) INR D-Dimer ABG pH POC ABG pCO2 POC ABG pO2 ABG pO2 ABG HCO3 ABG O2 Saturation ABG Base Excess ABG Hemoglobin ABG Oxyhemoglobin ABG Sodium ABG Potassium ABG Chloride ABG Glucose Oxyhemoglobin Carboxyhemoglobin Sodium 136 L Potassium 2.4 L* Chloride 93.1 L Carbon Dioxide 36 H BUN 43 H Creatinine 5.4 H Glucose 167 H POC Glucose 162 H Hemoglobin A1c Lactic Acid Calcium 6.3 L Phosphorus Magnesium Ferritin Total Bilirubin AST ALT Lactate Dehydrogenase C-Reactive Protein Albumin Triglycerides Arterial Blood Glucose Arterial Blood Ionized Calcium Urine Creatinine Coronavirus (PCR) Crossmatch 02/08/21 02/08/21 02/08/21 11:44 17:53 18:56 WBC RBC Hgb Hct MCV MCH MCHC RDW Plt Count Lymph % (Auto) Lymph # (Auto) Seg Neutrophils % Seg Neuts % (Manual) Lymphocytes % (Manual) Monocytes % (Manual) Nucleated RBC % Seg Neutrophils # Seg Neutrophils # Man Lymphocytes # (Manual) Monocytes # (Manual) Eosinophils # (Manual) INR D-Dimer ABG pH POC ABG pCO2 POC ABG pO2 ABG pO2 ABG HCO3 ABG O2 Saturation ABG Base Excess ABG Hemoglobin ABG Oxyhemoglobin ABG Sodium ABG Potassium ABG Chloride ABG Glucose Oxyhemoglobin Carboxyhemoglobin Sodium Potassium 2.9 L* D Chloride Carbon Dioxide BUN Creatinine Glucose POC Glucose 164 H 154 H Hemoglobin A1c Lactic Acid Calcium Phosphorus Magnesium Ferritin Total Bilirubin AST ALT Lactate Dehydrogenase C-Reactive Protein Albumin Triglycerides Arterial Blood Glucose Arterial Blood Ionized Calcium Urine Creatinine Coronavirus (PCR) Crossmatch 02/08/21 02/08/21 02/09/21 23:24 23:58 03:21 WBC RBC Hgb Hct MCV MCH MCHC RDW Plt Count Lymph % (Auto) Lymph # (Auto) Seg Neutrophils % Seg Neuts % (Manual) Lymphocytes % (Manual) Monocytes % (Manual) Nucleated RBC % Seg Neutrophils # Seg Neutrophils # Man Lymphocytes # (Manual) Monocytes # (Manual) Eosinophils # (Manual) INR D-Dimer ABG pH 7.319 L POC ABG pCO2 63.3 H 68.3 H POC ABG pO2 71.2 L 76.5 L ABG pO2 ABG HCO3 ABG O2 Saturation ABG Base Excess ABG Hemoglobin 8.2 L 7.0 L ABG Oxyhemoglobin 91.8 L 92.2 L ABG Sodium 134.6 L 133.0 L ABG Potassium 2.3 L 3.1 L ABG Chloride 96.0 L 95.0 L ABG Glucose 184 H 154 H Oxyhemoglobin Carboxyhemoglobin Sodium Potassium Chloride Carbon Dioxide BUN Creatinine Glucose POC Glucose 152 H Hemoglobin A1c Lactic Acid Calcium Phosphorus Magnesium Ferritin Total Bilirubin AST ALT Lactate Dehydrogenase C-Reactive Protein Albumin Triglycerides Arterial Blood Glucose 184 H 154 H Arterial Blood Ionized Calcium 3.6 L 3.5 L Urine Creatinine Coronavirus (PCR) Crossmatch 02/09/21 02/09/21 02/09/21 05:10 05:10 06:04 WBC RBC 2.14 L Hgb 7.0 L Hct 20.5 L MCV 96 H MCH 33 H MCHC RDW Plt Count Lymph % (Auto) Lymph # (Auto) Seg Neutrophils % Seg Neuts % (Manual) 82.0 H Lymphocytes % (Manual) 9.0 L Monocytes % (Manual) Nucleated RBC % 1.0 H Seg Neutrophils # Seg Neutrophils # Man 8.9 H Lymphocytes # (Manual) 1.0 L Monocytes # (Manual) Eosinophils # (Manual) INR D-Dimer ABG pH POC ABG pCO2 POC ABG pO2 ABG pO2 ABG HCO3 ABG O2 Saturation ABG Base Excess ABG Hemoglobin ABG Oxyhemoglobin ABG Sodium ABG Potassium ABG Chloride ABG Glucose Oxyhemoglobin Carboxyhemoglobin Sodium 135 L Potassium 3.2 L Chloride 91.0 L Carbon Dioxide 32 H BUN 54 H Creatinine 6.6 H Glucose 163 H POC Glucose 149 H Hemoglobin A1c Lactic Acid Calcium 6.2 L Phosphorus Magnesium Ferritin Total Bilirubin AST ALT Lactate Dehydrogenase C-Reactive Protein Albumin Triglycerides Arterial Blood Glucose Arterial Blood Ionized Calcium Urine Creatinine Coronavirus (PCR) Crossmatch 02/09/21 02/09/21 02/09/21 12:02 13:32 13:40 WBC RBC Hgb Hct MCV MCH MCHC RDW Plt Count Lymph % (Auto) Lymph # (Auto) Seg Neutrophils % Seg Neuts % (Manual) Lymphocytes % (Manual) Monocytes % (Manual) Nucleated RBC % Seg Neutrophils # Seg Neutrophils # Man Lymphocytes # (Manual) Monocytes # (Manual) Eosinophils # (Manual) INR D-Dimer ABG pH POC ABG pCO2 POC ABG pO2 ABG pO2 ABG HCO3 ABG O2 Saturation ABG Base Excess ABG Hemoglobin ABG Oxyhemoglobin ABG Sodium ABG Potassium ABG Chloride ABG Glucose Oxyhemoglobin Carboxyhemoglobin Sodium Potassium Chloride Carbon Dioxide BUN Creatinine Glucose POC Glucose 147 H Hemoglobin A1c Lactic Acid Calcium Phosphorus Magnesium Ferritin Total Bilirubin AST ALT Lactate Dehydrogenase C-Reactive Protein Albumin Triglycerides 250 H Arterial Blood Glucose Arterial Blood Ionized Calcium Urine Creatinine Coronavirus (PCR) Crossmatch See Detail 02/09/21 02/09/21 02/10/21 18:06 23:42 04:00 WBC RBC Hgb Hct MCV MCH MCHC RDW Plt Count Lymph % (Auto) Lymph # (Auto) Seg Neutrophils % Seg Neuts % (Manual) Lymphocytes % (Manual) Monocytes % (Manual) Nucleated RBC % Seg Neutrophils # Seg Neutrophils # Man Lymphocytes # (Manual) Monocytes # (Manual) Eosinophils # (Manual) INR D-Dimer ABG pH POC ABG pCO2 65.8 H POC ABG pO2 68.0 L ABG pO2 ABG HCO3 ABG O2 Saturation ABG Base Excess ABG Hemoglobin 8.3 L ABG Oxyhemoglobin ABG Sodium 132.4 L ABG Potassium 2.9 L ABG Chloride 92.0 L ABG Glucose 174 H Oxyhemoglobin Carboxyhemoglobin Sodium Potassium Chloride Carbon Dioxide BUN Creatinine Glucose POC Glucose 152 H 147 H Hemoglobin A1c Lactic Acid Calcium Phosphorus Magnesium Ferritin Total Bilirubin AST ALT Lactate Dehydrogenase C-Reactive Protein Albumin Triglycerides Arterial Blood Glucose 174 H Arterial Blood Ionized Calcium 3.4 L Urine Creatinine Coronavirus (PCR) Crossmatch 02/10/21 02/10/21 02/10/21 05:32 11:29 14:08 WBC 12.5 H RBC 2.14 L Hgb 6.6 L Hct 20.2 L MCV MCH MCHC RDW Plt Count Lymph % (Auto) Lymph # (Auto) Seg Neutrophils % Seg Neuts % (Manual) Lymphocytes % (Manual) Monocytes % (Manual) Nucleated RBC % Seg Neutrophils # Seg Neutrophils # Man Lymphocytes # (Manual) Monocytes # (Manual) Eosinophils # (Manual) INR D-Dimer ABG pH POC ABG pCO2 POC ABG pO2 ABG pO2 ABG HCO3 ABG O2 Saturation ABG Base Excess ABG Hemoglobin ABG Oxyhemoglobin ABG Sodium ABG Potassium ABG Chloride ABG Glucose Oxyhemoglobin Carboxyhemoglobin Sodium Potassium Chloride Carbon Dioxide BUN Creatinine Glucose POC Glucose 167 H 147 H Hemoglobin A1c Lactic Acid Calcium Phosphorus Magnesium Ferritin Total Bilirubin AST ALT Lactate Dehydrogenase C-Reactive Protein Albumin Triglycerides Arterial Blood Glucose Arterial Blood Ionized Calcium Urine Creatinine Coronavirus (PCR) Crossmatch 02/10/21 02/10/21 02/10/21 14:08 18:11 22:32 WBC RBC Hgb 6.4 L Hct 19.1 L* MCV MCH MCHC RDW Plt Count Lymph % (Auto) Lymph # (Auto) Seg Neutrophils % Seg Neuts % (Manual) Lymphocytes % (Manual) Monocytes % (Manual) Nucleated RBC % Seg Neutrophils # Seg Neutrophils # Man Lymphocytes # (Manual) Monocytes # (Manual) Eosinophils # (Manual) INR D-Dimer ABG pH POC ABG pCO2 POC ABG pO2 ABG pO2 ABG HCO3 ABG O2 Saturation ABG Base Excess ABG Hemoglobin ABG Oxyhemoglobin ABG Sodium ABG Potassium ABG Chloride ABG Glucose Oxyhemoglobin Carboxyhemoglobin Sodium 136 L Potassium 2.9 L* Chloride 90.2 L Carbon Dioxide 33 H BUN 42 H Creatinine 7.5 H Glucose 155 H POC Glucose 173 H Hemoglobin A1c Lactic Acid Calcium 6.1 L Phosphorus Magnesium Ferritin Total Bilirubin AST ALT Lactate Dehydrogenase C-Reactive Protein Albumin Triglycerides Arterial Blood Glucose Arterial Blood Ionized Calcium Urine Creatinine Coronavirus (PCR) Crossmatch 02/11/21 02/11/21 02/11/21 00:28 04:05 04:30 WBC RBC Hgb Hct MCV MCH MCHC RDW Plt Count Lymph % (Auto) Lymph # (Auto) Seg Neutrophils % Seg Neuts % (Manual) Lymphocytes % (Manual) Monocytes % (Manual) Nucleated RBC % Seg Neutrophils # Seg Neutrophils # Man Lymphocytes # (Manual) Monocytes # (Manual) Eosinophils # (Manual) INR D-Dimer ABG pH 7.307 L POC ABG pCO2 72.2 H POC ABG pO2 72.3 L ABG pO2 ABG HCO3 ABG O2 Saturation ABG Base Excess ABG Hemoglobin 8.2 L ABG Oxyhemoglobin ABG Sodium 132.3 L ABG Potassium 3.2 L ABG Chloride 91.0 L ABG Glucose 197 H Oxyhemoglobin Carboxyhemoglobin Sodium 135 L Potassium 3.3 L Chloride 87.1 L Carbon Dioxide 36 H BUN 71 H Creatinine 7.9 H Glucose 263 H POC Glucose 192 H Hemoglobin A1c Lactic Acid Calcium 6.2 L Phosphorus Magnesium Ferritin Total Bilirubin AST ALT Lactate Dehydrogenase C-Reactive Protein Albumin Triglycerides Arterial Blood Glucose 197 H Arterial Blood Ionized Calcium 3.3 L Urine Creatinine Coronavirus (PCR) Crossmatch 02/11/21 02/11/21 02/11/21 04:30 05:47 08:27 WBC RBC 2.22 L Hgb 7.2 L Hct 21.0 L MCV MCH MCHC RDW Plt Count Lymph % (Auto) 8.7 L Lymph # (Auto) 0.9 L Seg Neutrophils % 85.5 H Seg Neuts % (Manual) Lymphocytes % (Manual) Monocytes % (Manual) Nucleated RBC % Seg Neutrophils # 9.2 H Seg Neutrophils # Man Lymphocytes # (Manual) Monocytes # (Manual) Eosinophils # (Manual) INR 1.17 H D-Dimer 1930.92 H ABG pH POC ABG pCO2 POC ABG pO2 ABG pO2 ABG HCO3 ABG O2 Saturation ABG Base Excess ABG Hemoglobin ABG Oxyhemoglobin ABG Sodium ABG Potassium ABG Chloride ABG Glucose Oxyhemoglobin Carboxyhemoglobin Sodium Potassium Chloride Carbon Dioxide BUN Creatinine Glucose POC Glucose 189 H Hemoglobin A1c Lactic Acid Calcium Phosphorus Magnesium Ferritin Total Bilirubin AST ALT Lactate Dehydrogenase C-Reactive Protein Albumin Triglycerides Arterial Blood Glucose Arterial Blood Ionized Calcium Urine Creatinine Coronavirus (PCR) Crossmatch 02/11/21 02/11/21 02/11/21 09:00 09:00 13:18 WBC RBC Hgb Hct MCV MCH MCHC RDW Plt Count Lymph % (Auto) Lymph # (Auto) Seg Neutrophils % Seg Neuts % (Manual) Lymphocytes % (Manual) Monocytes % (Manual) Nucleated RBC % Seg Neutrophils # Seg Neutrophils # Man Lymphocytes # (Manual) Monocytes # (Manual) Eosinophils # (Manual) INR D-Dimer ABG pH POC ABG pCO2 POC ABG pO2 ABG pO2 ABG HCO3 ABG O2 Saturation ABG Base Excess ABG Hemoglobin ABG Oxyhemoglobin ABG Sodium ABG Potassium ABG Chloride ABG Glucose Oxyhemoglobin Carboxyhemoglobin Sodium Potassium Chloride Carbon Dioxide BUN Creatinine Glucose 126 H POC Glucose 160 H Hemoglobin A1c Lactic Acid Calcium Phosphorus Magnesium Ferritin 1253.0 H Total Bilirubin AST ALT Lactate Dehydrogenase 649 H C-Reactive Protein 12.60 H Albumin Triglycerides Arterial Blood Glucose Arterial Blood Ionized Calcium Urine Creatinine Coronavirus (PCR) Crossmatch 02/11/21 02/11/21 02/11/21 14:30 16:59 22:34 WBC RBC Hgb 7.1 L 6.7 L Hct 20.5 L 19.9 L* MCV MCH MCHC RDW Plt Count Lymph % (Auto) Lymph # (Auto) Seg Neutrophils % Seg Neuts % (Manual) Lymphocytes % (Manual) Monocytes % (Manual) Nucleated RBC % Seg Neutrophils # Seg Neutrophils # Man Lymphocytes # (Manual) Monocytes # (Manual) Eosinophils # (Manual) INR D-Dimer ABG pH POC ABG pCO2 POC ABG pO2 ABG pO2 ABG HCO3 ABG O2 Saturation ABG Base Excess ABG Hemoglobin ABG Oxyhemoglobin ABG Sodium ABG Potassium ABG Chloride ABG Glucose Oxyhemoglobin Carboxyhemoglobin Sodium Potassium Chloride Carbon Dioxide BUN Creatinine Glucose POC Glucose 151 H Hemoglobin A1c Lactic Acid Calcium Phosphorus Magnesium Ferritin Total Bilirubin AST ALT Lactate Dehydrogenase C-Reactive Protein Albumin Triglycerides Arterial Blood Glucose Arterial Blood Ionized Calcium Urine Creatinine Coronavirus (PCR) Crossmatch 02/11/21 02/12/21 02/12/21 23:42 04:41 05:19 WBC RBC Hgb Hct MCV MCH MCHC RDW Plt Count Lymph % (Auto) Lymph # (Auto) Seg Neutrophils % Seg Neuts % (Manual) Lymphocytes % (Manual) Monocytes % (Manual) Nucleated RBC % Seg Neutrophils # Seg Neutrophils # Man Lymphocytes # (Manual) Monocytes # (Manual) Eosinophils # (Manual) INR D-Dimer ABG pH POC ABG pCO2 POC ABG pO2 ABG pO2 69.0 L ABG HCO3 32.5 H ABG O2 Saturation ABG Base Excess 7.7 H ABG Hemoglobin 5.1 L ABG Oxyhemoglobin ABG Sodium ABG Potassium ABG Chloride ABG Glucose Oxyhemoglobin 94.7 L Carboxyhemoglobin Sodium Potassium Chloride Carbon Dioxide BUN Creatinine Glucose POC Glucose 165 H 153 H Hemoglobin A1c Lactic Acid Calcium Phosphorus Magnesium Ferritin Total Bilirubin AST ALT Lactate Dehydrogenase C-Reactive Protein Albumin Triglycerides Arterial Blood Glucose Arterial Blood Ionized Calcium Urine Creatinine Coronavirus (PCR) Crossmatch 02/12/21 02/12/21 02/12/21 06:35 06:35 08:40 WBC RBC 2.21 L Hgb 7.2 L Hct 20.7 L MCV MCH 33 H MCHC 35 H RDW Plt Count Lymph % (Auto) Lymph # (Auto) Seg Neutrophils % Seg Neuts % (Manual) Lymphocytes % (Manual) Monocytes % (Manual) Nucleated RBC % Seg Neutrophils # Seg Neutrophils # Man Lymphocytes # (Manual) Monocytes # (Manual) Eosinophils # (Manual) INR D-Dimer ABG pH POC ABG pCO2 POC ABG pO2 ABG pO2 ABG HCO3 ABG O2 Saturation ABG Base Excess ABG Hemoglobin ABG Oxyhemoglobin ABG Sodium ABG Potassium ABG Chloride ABG Glucose Oxyhemoglobin Carboxyhemoglobin Sodium 135 L Potassium 3.4 L Chloride 91.8 L Carbon Dioxide 36 H BUN 57 H Creatinine 6.8 H Glucose 163 H POC Glucose Hemoglobin A1c Lactic Acid Calcium 7.0 L Phosphorus Magnesium 1.60 L Ferritin Total Bilirubin AST ALT Lactate Dehydrogenase C-Reactive Protein Albumin Triglycerides Arterial Blood Glucose Arterial Blood Ionized Calcium Urine Creatinine Coronavirus (PCR) Crossmatch 02/12/21 02/12/21 02/12/21 10:45 12:04 17:19 WBC RBC Hgb Hct MCV MCH MCHC RDW Plt Count Lymph % (Auto) Lymph # (Auto) Seg Neutrophils % Seg Neuts % (Manual) Lymphocytes % (Manual) Monocytes % (Manual) Nucleated RBC % Seg Neutrophils # Seg Neutrophils # Man Lymphocytes # (Manual) Monocytes # (Manual) Eosinophils # (Manual) INR D-Dimer ABG pH POC ABG pCO2 POC ABG pO2 ABG pO2 ABG HCO3 ABG O2 Saturation ABG Base Excess ABG Hemoglobin ABG Oxyhemoglobin ABG Sodium ABG Potassium ABG Chloride ABG Glucose Oxyhemoglobin Carboxyhemoglobin Sodium Potassium Chloride Carbon Dioxide BUN Creatinine Glucose POC Glucose 165 H 165 H Hemoglobin A1c Lactic Acid Calcium Phosphorus Magnesium Ferritin Total Bilirubin AST ALT Lactate Dehydrogenase C-Reactive Protein Albumin Triglycerides 182 H Arterial Blood Glucose Arterial Blood Ionized Calcium Urine Creatinine Coronavirus (PCR) Crossmatch 02/12/21 02/13/21 02/13/21 23:18 05:00 05:36 WBC RBC Hgb Hct MCV MCH MCHC RDW Plt Count Lymph % (Auto) Lymph # (Auto) Seg Neutrophils % Seg Neuts % (Manual) Lymphocytes % (Manual) Monocytes % (Manual) Nucleated RBC % Seg Neutrophils # Seg Neutrophils # Man Lymphocytes # (Manual) Monocytes # (Manual) Eosinophils # (Manual) INR D-Dimer ABG pH POC ABG pCO2 60.8 H POC ABG pO2 76.4 L ABG pO2 ABG HCO3 ABG O2 Saturation ABG Base Excess ABG Hemoglobin 7.4 L ABG Oxyhemoglobin ABG Sodium 133.2 L ABG Potassium 3.3 L ABG Chloride 96.0 L ABG Glucose 168 H Oxyhemoglobin Carboxyhemoglobin Sodium Potassium Chloride Carbon Dioxide BUN Creatinine Glucose POC Glucose 163 H 151 H Hemoglobin A1c Lactic Acid Calcium Phosphorus Magnesium Ferritin Total Bilirubin AST ALT Lactate Dehydrogenase C-Reactive Protein Albumin Triglycerides Arterial Blood Glucose 168 H Arterial Blood Ionized Calcium 4.3 L Urine Creatinine Coronavirus (PCR) Crossmatch 02/13/21 02/13/21 02/13/21 06:40 06:40 06:40 WBC RBC 2.19 L Hgb 7.0 L Hct 20.8 L MCV 95 H MCH MCHC RDW Plt Count Lymph % (Auto) Lymph # (Auto) Seg Neutrophils % Seg Neuts % (Manual) Lymphocytes % (Manual) Monocytes % (Manual) Nucleated RBC % Seg Neutrophils # Seg Neutrophils # Man Lymphocytes # (Manual) Monocytes # (Manual) Eosinophils # (Manual) INR D-Dimer ABG pH POC ABG pCO2 POC ABG pO2 ABG pO2 ABG HCO3 ABG O2 Saturation ABG Base Excess ABG Hemoglobin ABG Oxyhemoglobin ABG Sodium ABG Potassium ABG Chloride ABG Glucose Oxyhemoglobin Carboxyhemoglobin Sodium 135 L Potassium 3.4 L Chloride 93.0 L Carbon Dioxide 32 H BUN 46 H Creatinine 5.8 H Glucose 148 H POC Glucose Hemoglobin A1c Lactic Acid Calcium 7.9 L Phosphorus Magnesium Ferritin Total Bilirubin AST ALT Lactate Dehydrogenase C-Reactive Protein 16.80 H Albumin Triglycerides Arterial Blood Glucose Arterial Blood Ionized Calcium Urine Creatinine Coronavirus (PCR) Crossmatch 02/13/21 02/13/21 02/13/21 06:40 07:38 07:38 WBC RBC Hgb Hct MCV MCH MCHC RDW Plt Count Lymph % (Auto) Lymph # (Auto) Seg Neutrophils % Seg Neuts % (Manual) Lymphocytes % (Manual) Monocytes % (Manual) Nucleated RBC % Seg Neutrophils # Seg Neutrophils # Man Lymphocytes # (Manual) Monocytes # (Manual) Eosinophils # (Manual) INR D-Dimer 1722.16 H ABG pH POC ABG pCO2 POC ABG pO2 ABG pO2 ABG HCO3 ABG O2 Saturation ABG Base Excess ABG Hemoglobin ABG Oxyhemoglobin ABG Sodium ABG Potassium ABG Chloride ABG Glucose Oxyhemoglobin Carboxyhemoglobin Sodium Potassium Chloride Carbon Dioxide BUN Creatinine Glucose POC Glucose Hemoglobin A1c Lactic Acid Calcium Phosphorus Magnesium 1.60 L Ferritin 976.5 H Total Bilirubin AST ALT Lactate Dehydrogenase C-Reactive Protein Albumin Triglycerides Arterial Blood Glucose Arterial Blood Ionized Calcium Urine Creatinine Coronavirus (PCR) Crossmatch 02/13/21 02/13/21 02/13/21 12:24 16:57 23:32 WBC RBC Hgb Hct MCV MCH MCHC RDW Plt Count Lymph % (Auto) Lymph # (Auto) Seg Neutrophils % Seg Neuts % (Manual) Lymphocytes % (Manual) Monocytes % (Manual) Nucleated RBC % Seg Neutrophils # Seg Neutrophils # Man Lymphocytes # (Manual) Monocytes # (Manual) Eosinophils # (Manual) INR D-Dimer ABG pH POC ABG pCO2 POC ABG pO2 ABG pO2 ABG HCO3 ABG O2 Saturation ABG Base Excess ABG Hemoglobin ABG Oxyhemoglobin ABG Sodium ABG Potassium ABG Chloride ABG Glucose Oxyhemoglobin Carboxyhemoglobin Sodium Potassium Chloride Carbon Dioxide BUN Creatinine Glucose POC Glucose 141 H 156 H 161 H Hemoglobin A1c Lactic Acid Calcium Phosphorus Magnesium Ferritin Total Bilirubin AST ALT Lactate Dehydrogenase C-Reactive Protein Albumin Triglycerides Arterial Blood Glucose Arterial Blood Ionized Calcium Urine Creatinine Coronavirus (PCR) Crossmatch 02/14/21 02/14/21 02/14/21 04:00 05:41 11:00 WBC RBC 2.14 L Hgb 6.9 L Hct 20.7 L MCV 97 H MCH 33 H MCHC RDW Plt Count Lymph % (Auto) Lymph # (Auto) Seg Neutrophils % Seg Neuts % (Manual) Lymphocytes % (Manual) Monocytes % (Manual) Nucleated RBC % Seg Neutrophils # Seg Neutrophils # Man Lymphocytes # (Manual) Monocytes # (Manual) Eosinophils # (Manual) INR D-Dimer ABG pH POC ABG pCO2 POC ABG pO2 ABG pO2 ABG HCO3 ABG O2 Saturation ABG Base Excess ABG Hemoglobin ABG Oxyhemoglobin ABG Sodium ABG Potassium ABG Chloride ABG Glucose Oxyhemoglobin Carboxyhemoglobin Sodium Potassium Chloride Carbon Dioxide BUN Creatinine Glucose POC Glucose 143 H Hemoglobin A1c Lactic Acid Calcium Phosphorus Magnesium Ferritin Total Bilirubin AST ALT Lactate Dehydrogenase C-Reactive Protein Albumin Triglycerides Arterial Blood Glucose Arterial Blood Ionized Calcium Urine Creatinine Coronavirus (PCR) Crossmatch See Detail 02/14/21 02/14/21 02/14/21 11:51 18:08 23:41 WBC RBC Hgb Hct MCV MCH MCHC RDW Plt Count Lymph % (Auto) Lymph # (Auto) Seg Neutrophils % Seg Neuts % (Manual) Lymphocytes % (Manual) Monocytes % (Manual) Nucleated RBC % Seg Neutrophils # Seg Neutrophils # Man Lymphocytes # (Manual) Monocytes # (Manual) Eosinophils # (Manual) INR D-Dimer ABG pH POC ABG pCO2 POC ABG pO2 ABG pO2 ABG HCO3 ABG O2 Saturation ABG Base Excess ABG Hemoglobin ABG Oxyhemoglobin ABG Sodium ABG Potassium ABG Chloride ABG Glucose Oxyhemoglobin Carboxyhemoglobin Sodium Potassium Chloride Carbon Dioxide BUN Creatinine Glucose POC Glucose 113 H 123 H 120 H Hemoglobin A1c Lactic Acid Calcium Phosphorus Magnesium Ferritin Total Bilirubin AST ALT Lactate Dehydrogenase C-Reactive Protein Albumin Triglycerides Arterial Blood Glucose Arterial Blood Ionized Calcium Urine Creatinine Coronavirus (PCR) Crossmatch 02/14/21 02/15/21 02/15/21 Unknown 05:00 05:00 WBC RBC Hgb Hct MCV MCH MCHC RDW Plt Count Lymph % (Auto) Lymph # (Auto) Seg Neutrophils % Seg Neuts % (Manual) Lymphocytes % (Manual) Monocytes % (Manual) Nucleated RBC % Seg Neutrophils # Seg Neutrophils # Man Lymphocytes # (Manual) Monocytes # (Manual) Eosinophils # (Manual) INR D-Dimer ABG pH POC ABG pCO2 53.4 H POC ABG pO2 61.8 L ABG pO2 ABG HCO3 ABG O2 Saturation ABG Base Excess ABG Hemoglobin 7.7 L ABG Oxyhemoglobin 88.8 L ABG Sodium ABG Potassium ABG Chloride ABG Glucose 143 H Oxyhemoglobin Carboxyhemoglobin 1.6 H Sodium Potassium Chloride 96.9 L Carbon Dioxide 33 H 31 H BUN 40 H 38 H Creatinine 5.2 H 4.8 H Glucose 152 H 132 H POC Glucose Hemoglobin A1c Lactic Acid Calcium 7.9 L Phosphorus Magnesium Ferritin Total Bilirubin AST ALT Lactate Dehydrogenase C-Reactive Protein Albumin Triglycerides Arterial Blood Glucose 143 H Arterial Blood Ionized Calcium Urine Creatinine Coronavirus (PCR) Crossmatch 02/15/21 02/15/21 02/15/21 05:00 05:27 12:05 WBC RBC 2.30 L Hgb 7.1 L Hct 22.1 L MCV 96 H MCH MCHC RDW 15.7 H Plt Count Lymph % (Auto) 11.0 L Lymph # (Auto) 1.1 L Seg Neutrophils % 83.0 H Seg Neuts % (Manual) Lymphocytes % (Manual) Monocytes % (Manual) Nucleated RBC % Seg Neutrophils # 8.6 H Seg Neutrophils # Man Lymphocytes # (Manual) Monocytes # (Manual) Eosinophils # (Manual) INR D-Dimer ABG pH POC ABG pCO2 POC ABG pO2 ABG pO2 ABG HCO3 ABG O2 Saturation ABG Base Excess ABG Hemoglobin ABG Oxyhemoglobin ABG Sodium ABG Potassium ABG Chloride ABG Glucose Oxyhemoglobin Carboxyhemoglobin Sodium Potassium Chloride Carbon Dioxide BUN Creatinine Glucose POC Glucose 133 H 123 H Hemoglobin A1c Lactic Acid Calcium Phosphorus Magnesium Ferritin Total Bilirubin AST ALT Lactate Dehydrogenase C-Reactive Protein Albumin Triglycerides Arterial Blood Glucose Arterial Blood Ionized Calcium Urine Creatinine Coronavirus (PCR) Crossmatch 02/15/21 02/15/21 02/16/21 17:08 23:52 03:44 WBC RBC Hgb Hct MCV MCH MCHC RDW Plt Count Lymph % (Auto) Lymph # (Auto) Seg Neutrophils % Seg Neuts % (Manual) Lymphocytes % (Manual) Monocytes % (Manual) Nucleated RBC % Seg Neutrophils # Seg Neutrophils # Man Lymphocytes # (Manual) Monocytes # (Manual) Eosinophils # (Manual) INR D-Dimer ABG pH 7.307 L POC ABG pCO2 59.5 H POC ABG pO2 63.2 L ABG pO2 ABG HCO3 ABG O2 Saturation ABG Base Excess ABG Hemoglobin 9.3 L ABG Oxyhemoglobin ABG Sodium ABG Potassium ABG Chloride ABG Glucose 148 H Oxyhemoglobin Carboxyhemoglobin Sodium Potassium Chloride Carbon Dioxide BUN Creatinine Glucose POC Glucose 129 H 136 H Hemoglobin A1c Lactic Acid Calcium Phosphorus Magnesium Ferritin Total Bilirubin AST ALT Lactate Dehydrogenase C-Reactive Protein Albumin Triglycerides Arterial Blood Glucose 148 H Arterial Blood Ionized Calcium Urine Creatinine Coronavirus (PCR) Crossmatch 02/16/21 02/16/21 02/16/21 05:26 06:00 12:14 WBC RBC Hgb Hct MCV MCH MCHC RDW Plt Count Lymph % (Auto) Lymph # (Auto) Seg Neutrophils % Seg Neuts % (Manual) Lymphocytes % (Manual) Monocytes % (Manual) Nucleated RBC % Seg Neutrophils # Seg Neutrophils # Man Lymphocytes # (Manual) Monocytes # (Manual) Eosinophils # (Manual) INR D-Dimer ABG pH POC ABG pCO2 POC ABG pO2 ABG pO2 ABG HCO3 ABG O2 Saturation ABG Base Excess ABG Hemoglobin ABG Oxyhemoglobin ABG Sodium ABG Potassium ABG Chloride ABG Glucose Oxyhemoglobin Carboxyhemoglobin Sodium Potassium Chloride Carbon Dioxide BUN 52 H Creatinine 6.0 H Glucose 138 H POC Glucose 135 H 128 H Hemoglobin A1c Lactic Acid Calcium Phosphorus Magnesium Ferritin Total Bilirubin AST ALT Lactate Dehydrogenase C-Reactive Protein Albumin Triglycerides Arterial Blood Glucose Arterial Blood Ionized Calcium Urine Creatinine Coronavirus (PCR) Crossmatch 02/16/21 02/16/21 02/16/21 17:09 17:09 17:09 WBC RBC Hgb Hct MCV MCH MCHC RDW Plt Count Lymph % (Auto) Lymph # (Auto) Seg Neutrophils % Seg Neuts % (Manual) Lymphocytes % (Manual) Monocytes % (Manual) Nucleated RBC % Seg Neutrophils # Seg Neutrophils # Man Lymphocytes # (Manual) Monocytes # (Manual) Eosinophils # (Manual) INR D-Dimer 4256.08 H ABG pH POC ABG pCO2 POC ABG pO2 ABG pO2 ABG HCO3 ABG O2 Saturation ABG Base Excess ABG Hemoglobin ABG Oxyhemoglobin ABG Sodium ABG Potassium ABG Chloride ABG Glucose Oxyhemoglobin Carboxyhemoglobin Sodium Potassium Chloride Carbon Dioxide BUN Creatinine Glucose POC Glucose Hemoglobin A1c Lactic Acid Calcium Phosphorus Magnesium Ferritin 980.6 H Total Bilirubin AST ALT Lactate Dehydrogenase 441 H C-Reactive Protein 20.20 H Albumin Triglycerides Arterial Blood Glucose Arterial Blood Ionized Calcium Urine Creatinine Coronavirus (PCR) Crossmatch 02/16/21 02/16/21 02/16/21 17:25 23:16 Unknown WBC RBC 2.19 L Hgb 7.1 L Hct 21.3 L MCV 98 H MCH 33 H MCHC RDW 16.0 H Plt Count Lymph % (Auto) Lymph # (Auto) Seg Neutrophils % Seg Neuts % (Manual) 85.0 H Lymphocytes % (Manual) 6.0 L Monocytes % (Manual) Nucleated RBC % 4.0 H Seg Neutrophils # Seg Neutrophils # Man Lymphocytes # (Manual) 0.5 L Monocytes # (Manual) Eosinophils # (Manual) INR D-Dimer ABG pH POC ABG pCO2 POC ABG pO2 ABG pO2 ABG HCO3 ABG O2 Saturation ABG Base Excess ABG Hemoglobin ABG Oxyhemoglobin ABG Sodium ABG Potassium ABG Chloride ABG Glucose Oxyhemoglobin Carboxyhemoglobin Sodium Potassium Chloride Carbon Dioxide BUN Creatinine Glucose POC Glucose 146 H 150 H Hemoglobin A1c Lactic Acid Calcium Phosphorus Magnesium Ferritin Total Bilirubin AST ALT Lactate Dehydrogenase C-Reactive Protein Albumin Triglycerides Arterial Blood Glucose Arterial Blood Ionized Calcium Urine Creatinine Coronavirus (PCR) Crossmatch 02/17/21 02/17/21 02/17/21 04:00 04:14 04:14 WBC RBC Hgb Hct MCV MCH MCHC RDW Plt Count Lymph % (Auto) Lymph # (Auto) Seg Neutrophils % Seg Neuts % (Manual) Lymphocytes % (Manual) Monocytes % (Manual) Nucleated RBC % Seg Neutrophils # Seg Neutrophils # Man Lymphocytes # (Manual) Monocytes # (Manual) Eosinophils # (Manual) INR D-Dimer 3183.35 H ABG pH 7.293 L POC ABG pCO2 59.5 H POC ABG pO2 68.1 L ABG pO2 ABG HCO3 ABG O2 Saturation ABG Base Excess ABG Hemoglobin 7.7 L ABG Oxyhemoglobin ABG Sodium 133.4 L ABG Potassium ABG Chloride ABG Glucose 143 H Oxyhemoglobin Carboxyhemoglobin Sodium 136 L Potassium Chloride 97.3 L Carbon Dioxide BUN 49 H Creatinine 5.3 H Glucose 139 H POC Glucose Hemoglobin A1c Lactic Acid Calcium Phosphorus Magnesium Ferritin Total Bilirubin AST ALT Lactate Dehydrogenase C-Reactive Protein Albumin Triglycerides Arterial Blood Glucose 143 H Arterial Blood Ionized Calcium Urine Creatinine Coronavirus (PCR) Crossmatch 02/17/21 02/17/21 02/17/21 04:14 04:14 04:14 WBC RBC 2.14 L Hgb 6.9 L Hct 21.0 L MCV 98 H MCH MCHC RDW 15.8 H Plt Count Lymph % (Auto) Lymph # (Auto) Seg Neutrophils % Seg Neuts % (Manual) Lymphocytes % (Manual) Monocytes % (Manual) Nucleated RBC % Seg Neutrophils # Seg Neutrophils # Man Lymphocytes # (Manual) Monocytes # (Manual) Eosinophils # (Manual) INR D-Dimer ABG pH POC ABG pCO2 POC ABG pO2 ABG pO2 ABG HCO3 ABG O2 Saturation ABG Base Excess ABG Hemoglobin ABG Oxyhemoglobin ABG Sodium ABG Potassium ABG Chloride ABG Glucose Oxyhemoglobin Carboxyhemoglobin Sodium Potassium Chloride Carbon Dioxide BUN Creatinine Glucose POC Glucose Hemoglobin A1c Lactic Acid Calcium Phosphorus Magnesium Ferritin 894.0 H Total Bilirubin AST ALT Lactate Dehydrogenase 399 H C-Reactive Protein 22.10 H Albumin Triglycerides Arterial Blood Glucose Arterial Blood Ionized Calcium Urine Creatinine Coronavirus (PCR) Crossmatch 02/17/21 02/17/21 02/17/21 06:06 07:45 12:25 WBC RBC Hgb 7.6 L Hct 22.8 L MCV MCH MCHC RDW Plt Count Lymph % (Auto) Lymph # (Auto) Seg Neutrophils % Seg Neuts % (Manual) Lymphocytes % (Manual) Monocytes % (Manual) Nucleated RBC % Seg Neutrophils # Seg Neutrophils # Man Lymphocytes # (Manual) Monocytes # (Manual) Eosinophils # (Manual) INR D-Dimer ABG pH POC ABG pCO2 POC ABG pO2 ABG pO2 ABG HCO3 ABG O2 Saturation ABG Base Excess ABG Hemoglobin ABG Oxyhemoglobin ABG Sodium ABG Potassium ABG Chloride ABG Glucose Oxyhemoglobin Carboxyhemoglobin Sodium Potassium Chloride Carbon Dioxide BUN Creatinine Glucose POC Glucose 134 H Hemoglobin A1c Lactic Acid Calcium Phosphorus Magnesium Ferritin Total Bilirubin AST ALT Lactate Dehydrogenase C-Reactive Protein Albumin Triglycerides Arterial Blood Glucose Arterial Blood Ionized Calcium Urine Creatinine Coronavirus (PCR) Crossmatch See Detail 02/17/21 02/17/21 02/17/21 12:35 17:56 23:34 WBC RBC Hgb Hct MCV MCH MCHC RDW Plt Count Lymph % (Auto) Lymph # (Auto) Seg Neutrophils % Seg Neuts % (Manual) Lymphocytes % (Manual) Monocytes % (Manual) Nucleated RBC % Seg Neutrophils # Seg Neutrophils # Man Lymphocytes # (Manual) Monocytes # (Manual) Eosinophils # (Manual) INR D-Dimer ABG pH POC ABG pCO2 POC ABG pO2 ABG pO2 ABG HCO3 ABG O2 Saturation ABG Base Excess ABG Hemoglobin ABG Oxyhemoglobin ABG Sodium ABG Potassium ABG Chloride ABG Glucose Oxyhemoglobin Carboxyhemoglobin Sodium Potassium Chloride Carbon Dioxide BUN Creatinine Glucose POC Glucose 114 H 128 H 120 H Hemoglobin A1c Lactic Acid Calcium Phosphorus Magnesium Ferritin Total Bilirubin AST ALT Lactate Dehydrogenase C-Reactive Protein Albumin Triglycerides Arterial Blood Glucose Arterial Blood Ionized Calcium Urine Creatinine Coronavirus (PCR) Crossmatch 02/18/21 02/18/21 02/18/21 04:03 04:55 05:02 WBC RBC 2.40 L Hgb 7.5 L Hct 23.1 L MCV 96 H MCH MCHC RDW 16.8 H Plt Count Lymph % (Auto) Lymph # (Auto) Seg Neutrophils % Seg Neuts % (Manual) Lymphocytes % (Manual) Monocytes % (Manual) Nucleated RBC % Seg Neutrophils # Seg Neutrophils # Man Lymphocytes # (Manual) Monocytes # (Manual) Eosinophils # (Manual) INR D-Dimer ABG pH 7.219 L POC ABG pCO2 58.7 H POC ABG pO2 64.2 L ABG pO2 ABG HCO3 ABG O2 Saturation ABG Base Excess ABG Hemoglobin ABG Oxyhemoglobin ABG Sodium 130.5 L ABG Potassium ABG Chloride ABG Glucose 147 H Oxyhemoglobin Carboxyhemoglobin Sodium 134 L Potassium Chloride 97.9 L Carbon Dioxide BUN 64 H Creatinine 6.5 H Glucose 135 H POC Glucose Hemoglobin A1c Lactic Acid Calcium 8.0 L Phosphorus Magnesium Ferritin Total Bilirubin AST ALT Lactate Dehydrogenase C-Reactive Protein Albumin Triglycerides Arterial Blood Glucose 147 H Arterial Blood Ionized Calcium Urine Creatinine Coronavirus (PCR) Crossmatch 02/18/21 02/18/21 02/18/21 05:27 10:00 11:51 WBC RBC Hgb Hct MCV MCH MCHC RDW Plt Count Lymph % (Auto) Lymph # (Auto) Seg Neutrophils % Seg Neuts % (Manual) Lymphocytes % (Manual) Monocytes % (Manual) Nucleated RBC % Seg Neutrophils # Seg Neutrophils # Man Lymphocytes # (Manual) Monocytes # (Manual) Eosinophils # (Manual) INR D-Dimer ABG pH POC ABG pCO2 POC ABG pO2 ABG pO2 ABG HCO3 ABG O2 Saturation ABG Base Excess ABG Hemoglobin ABG Oxyhemoglobin ABG Sodium ABG Potassium ABG Chloride ABG Glucose Oxyhemoglobin Carboxyhemoglobin Sodium Potassium Chloride Carbon Dioxide BUN Creatinine Glucose POC Glucose 130 H 123 H Hemoglobin A1c Lactic Acid Calcium Phosphorus Magnesium Ferritin Total Bilirubin AST ALT Lactate Dehydrogenase C-Reactive Protein Albumin Triglycerides Arterial Blood Glucose Arterial Blood Ionized Calcium Urine Creatinine Coronavirus (PCR) Positive A Crossmatch 02/18/21 02/18/21 02/19/21 18:10 23:35 05:00 WBC RBC Hgb Hct MCV MCH MCHC RDW Plt Count Lymph % (Auto) Lymph # (Auto) Seg Neutrophils % Seg Neuts % (Manual) Lymphocytes % (Manual) Monocytes % (Manual) Nucleated RBC % Seg Neutrophils # Seg Neutrophils # Man Lymphocytes # (Manual) Monocytes # (Manual) Eosinophils # (Manual) INR D-Dimer ABG pH 7.232 L POC ABG pCO2 64.3 H POC ABG pO2 ABG pO2 ABG HCO3 ABG O2 Saturation ABG Base Excess ABG Hemoglobin 8.1 L ABG Oxyhemoglobin ABG Sodium 133.5 L ABG Potassium ABG Chloride ABG Glucose 148 H Oxyhemoglobin Carboxyhemoglobin 1.6 H Sodium Potassium Chloride Carbon Dioxide BUN Creatinine Glucose POC Glucose 123 H 137 H Hemoglobin A1c Lactic Acid Calcium Phosphorus Magnesium Ferritin Total Bilirubin AST ALT Lactate Dehydrogenase C-Reactive Protein Albumin Triglycerides Arterial Blood Glucose 148 H Arterial Blood Ionized Calcium Urine Creatinine Coronavirus (PCR) Crossmatch 02/19/21 02/19/21 02/19/21 05:12 05:45 05:45 WBC RBC Hgb Hct MCV MCH MCHC RDW Plt Count Lymph % (Auto) Lymph # (Auto) Seg Neutrophils % Seg Neuts % (Manual) Lymphocytes % (Manual) Monocytes % (Manual) Nucleated RBC % Seg Neutrophils # Seg Neutrophils # Man Lymphocytes # (Manual) Monocytes # (Manual) Eosinophils # (Manual) INR D-Dimer 4840.82 H ABG pH POC ABG pCO2 POC ABG pO2 ABG pO2 ABG HCO3 ABG O2 Saturation ABG Base Excess ABG Hemoglobin ABG Oxyhemoglobin ABG Sodium ABG Potassium ABG Chloride ABG Glucose Oxyhemoglobin Carboxyhemoglobin Sodium 135 L Potassium Chloride 97.8 L Carbon Dioxide BUN 58 H Creatinine 5.6 H Glucose 140 H POC Glucose 134 H Hemoglobin A1c Lactic Acid Calcium Phosphorus Magnesium Ferritin Total Bilirubin AST ALT Lactate Dehydrogenase 345 H C-Reactive Protein 15.20 H Albumin Triglycerides 195 H Arterial Blood Glucose Arterial Blood Ionized Calcium Urine Creatinine Coronavirus (PCR) Crossmatch 02/19/21 02/19/21 02/19/21 05:45 12:00 17:48 WBC RBC Hgb Hct MCV MCH MCHC RDW Plt Count Lymph % (Auto) Lymph # (Auto) Seg Neutrophils % Seg Neuts % (Manual) Lymphocytes % (Manual) Monocytes % (Manual) Nucleated RBC % Seg Neutrophils # Seg Neutrophils # Man Lymphocytes # (Manual) Monocytes # (Manual) Eosinophils # (Manual) INR D-Dimer ABG pH POC ABG pCO2 POC ABG pO2 ABG pO2 ABG HCO3 ABG O2 Saturation ABG Base Excess ABG Hemoglobin ABG Oxyhemoglobin ABG Sodium ABG Potassium ABG Chloride ABG Glucose Oxyhemoglobin Carboxyhemoglobin Sodium Potassium Chloride Carbon Dioxide BUN Creatinine Glucose POC Glucose 122 H 119 H Hemoglobin A1c Lactic Acid Calcium Phosphorus Magnesium Ferritin 951.8 H Total Bilirubin AST ALT Lactate Dehydrogenase C-Reactive Protein Albumin Triglycerides Arterial Blood Glucose Arterial Blood Ionized Calcium Urine Creatinine Coronavirus (PCR) Crossmatch 02/20/21 02/20/21 02/20/21 03:20 04:00 11:48 WBC RBC Hgb Hct MCV MCH MCHC RDW Plt Count Lymph % (Auto) Lymph # (Auto) Seg Neutrophils % Seg Neuts % (Manual) Lymphocytes % (Manual) Monocytes % (Manual) Nucleated RBC % Seg Neutrophils # Seg Neutrophils # Man Lymphocytes # (Manual) Monocytes # (Manual) Eosinophils # (Manual) INR D-Dimer ABG pH 7.276 L POC ABG pCO2 57.3 H POC ABG pO2 71.0 L ABG pO2 ABG HCO3 ABG O2 Saturation ABG Base Excess ABG Hemoglobin 8.2 L ABG Oxyhemoglobin 91.9 L ABG Sodium 128.1 L ABG Potassium 4.8 H ABG Chloride ABG Glucose Oxyhemoglobin Carboxyhemoglobin 1.6 H Sodium 136 L Potassium Chloride Carbon Dioxide BUN 69 H Creatinine 6.4 H Glucose POC Glucose 131 H Hemoglobin A1c Lactic Acid Calcium 8.1 L Phosphorus Magnesium Ferritin Total Bilirubin AST ALT Lactate Dehydrogenase C-Reactive Protein Albumin Triglycerides Arterial Blood Glucose Arterial Blood Ionized Calcium 4.5 L Urine Creatinine Coronavirus (PCR) Crossmatch 02/20/21 02/20/21 02/21/21 18:05 23:28 02:53 WBC RBC Hgb Hct MCV MCH MCHC RDW Plt Count Lymph % (Auto) Lymph # (Auto) Seg Neutrophils % Seg Neuts % (Manual) Lymphocytes % (Manual) Monocytes % (Manual) Nucleated RBC % Seg Neutrophils # Seg Neutrophils # Man Lymphocytes # (Manual) Monocytes # (Manual) Eosinophils # (Manual) INR D-Dimer ABG pH 7.288 L POC ABG pCO2 52.7 H POC ABG pO2 81.5 L ABG pO2 ABG HCO3 ABG O2 Saturation ABG Base Excess ABG Hemoglobin 8.5 L ABG Oxyhemoglobin 93.6 L ABG Sodium 132.5 L ABG Potassium 4.6 H ABG Chloride ABG Glucose 106 H Oxyhemoglobin Carboxyhemoglobin 1.6 H Sodium Potassium Chloride Carbon Dioxide BUN Creatinine Glucose POC Glucose 114 H 118 H Hemoglobin A1c Lactic Acid Calcium Phosphorus Magnesium Ferritin Total Bilirubin AST ALT Lactate Dehydrogenase C-Reactive Protein Albumin Triglycerides Arterial Blood Glucose 106 H Arterial Blood Ionized Calcium 4.4 L Urine Creatinine Coronavirus (PCR) Crossmatch 02/21/21 02/21/21 02/21/21 05:29 11:42 16:35 WBC RBC Hgb Hct MCV MCH MCHC RDW Plt Count Lymph % (Auto) Lymph # (Auto) Seg Neutrophils % Seg Neuts % (Manual) Lymphocytes % (Manual) Monocytes % (Manual) Nucleated RBC % Seg Neutrophils # Seg Neutrophils # Man Lymphocytes # (Manual) Monocytes # (Manual) Eosinophils # (Manual) INR D-Dimer ABG pH POC ABG pCO2 POC ABG pO2 ABG pO2 ABG HCO3 ABG O2 Saturation ABG Base Excess ABG Hemoglobin ABG Oxyhemoglobin ABG Sodium ABG Potassium ABG Chloride ABG Glucose Oxyhemoglobin Carboxyhemoglobin Sodium Potassium 5.6 H Chloride 97.6 L Carbon Dioxide BUN 68 H Creatinine 5.7 H Glucose 160 H POC Glucose 111 H 131 H Hemoglobin A1c Lactic Acid Calcium 8.0 L Phosphorus 7.90 H Magnesium 2.60 H Ferritin Total Bilirubin AST ALT Lactate Dehydrogenase C-Reactive Protein Albumin Triglycerides Arterial Blood Glucose Arterial Blood Ionized Calcium Urine Creatinine Coronavirus (PCR) Crossmatch 02/21/21 02/22/21 02/22/21 17:17 00:04 04:22 WBC RBC Hgb Hct MCV MCH MCHC RDW Plt Count Lymph % (Auto) Lymph # (Auto) Seg Neutrophils % Seg Neuts % (Manual) Lymphocytes % (Manual) Monocytes % (Manual) Nucleated RBC % Seg Neutrophils # Seg Neutrophils # Man Lymphocytes # (Manual) Monocytes # (Manual) Eosinophils # (Manual) INR D-Dimer ABG pH 7.250 L POC ABG pCO2 60.1 H POC ABG pO2 57.6 L ABG pO2 ABG HCO3 ABG O2 Saturation ABG Base Excess ABG Hemoglobin 8.8 L ABG Oxyhemoglobin 87.0 L ABG Sodium 133.4 L ABG Potassium 5.1 H ABG Chloride ABG Glucose 124 H Oxyhemoglobin Carboxyhemoglobin Sodium Potassium Chloride Carbon Dioxide BUN Creatinine Glucose POC Glucose 135 H 121 H Hemoglobin A1c Lactic Acid Calcium Phosphorus Magnesium Ferritin Total Bilirubin AST ALT Lactate Dehydrogenase C-Reactive Protein Albumin Triglycerides Arterial Blood Glucose 124 H Arterial Blood Ionized Calcium Urine Creatinine Coronavirus (PCR) Crossmatch 02/22/21 02/22/21 02/22/21 05:33 09:41 09:41 WBC 13.2 H RBC 2.35 L Hgb 7.5 L Hct 22.7 L MCV 96 H MCH MCHC RDW 17.0 H Plt Count Lymph % (Auto) Lymph # (Auto) Seg Neutrophils % Seg Neuts % (Manual) 93.0 H Lymphocytes % (Manual) 4.0 L Monocytes % (Manual) Nucleated RBC % 1.0 H Seg Neutrophils # Seg Neutrophils # Man 12.3 H Lymphocytes # (Manual) 0.5 L Monocytes # (Manual) Eosinophils # (Manual) INR D-Dimer ABG pH POC ABG pCO2 POC ABG pO2 ABG pO2 ABG HCO3 ABG O2 Saturation ABG Base Excess ABG Hemoglobin ABG Oxyhemoglobin ABG Sodium ABG Potassium ABG Chloride ABG Glucose Oxyhemoglobin Carboxyhemoglobin Sodium Potassium 5.4 H Chloride Carbon Dioxide BUN 61 H Creatinine 5.5 H Glucose 117 H POC Glucose 114 H Hemoglobin A1c Lactic Acid Calcium 8.3 L Phosphorus Magnesium Ferritin Total Bilirubin AST ALT Lactate Dehydrogenase C-Reactive Protein Albumin Triglycerides Arterial Blood Glucose Arterial Blood Ionized Calcium Urine Creatinine Coronavirus (PCR) Crossmatch 02/22/21 02/22/21 02/23/21 12:08 17:06 04:00 WBC RBC Hgb Hct MCV MCH MCHC RDW Plt Count Lymph % (Auto) Lymph # (Auto) Seg Neutrophils % Seg Neuts % (Manual) Lymphocytes % (Manual) Monocytes % (Manual) Nucleated RBC % Seg Neutrophils # Seg Neutrophils # Man Lymphocytes # (Manual) Monocytes # (Manual) Eosinophils # (Manual) INR D-Dimer ABG pH 7.246 L POC ABG pCO2 POC ABG pO2 ABG pO2 119.4 H ABG HCO3 26.6 H ABG O2 Saturation ABG Base Excess ABG Hemoglobin 8.8 L ABG Oxyhemoglobin ABG Sodium ABG Potassium ABG Chloride ABG Glucose Oxyhemoglobin Carboxyhemoglobin Sodium Potassium Chloride Carbon Dioxide BUN Creatinine Glucose POC Glucose 133 H 114 H Hemoglobin A1c Lactic Acid Calcium Phosphorus Magnesium Ferritin Total Bilirubin AST ALT Lactate Dehydrogenase C-Reactive Protein Albumin Triglycerides Arterial Blood Glucose Arterial Blood Ionized Calcium Urine Creatinine Coronavirus (PCR) Crossmatch 02/23/21 02/23/21 02/24/21 06:20 11:42 03:43 WBC RBC Hgb Hct MCV MCH MCHC RDW Plt Count Lymph % (Auto) Lymph # (Auto) Seg Neutrophils % Seg Neuts % (Manual) Lymphocytes % (Manual) Monocytes % (Manual) Nucleated RBC % Seg Neutrophils # Seg Neutrophils # Man Lymphocytes # (Manual) Monocytes # (Manual) Eosinophils # (Manual) INR D-Dimer ABG pH 7.287 L POC ABG pCO2 54.7 H POC ABG pO2 ABG pO2 ABG HCO3 ABG O2 Saturation ABG Base Excess ABG Hemoglobin 8.5 L ABG Oxyhemoglobin ABG Sodium 135.6 L ABG Potassium ABG Chloride ABG Glucose 117 H Oxyhemoglobin Carboxyhemoglobin Sodium Potassium Chloride 97.6 L Carbon Dioxide BUN 79 H Creatinine 6.2 H Glucose POC Glucose 108 H Hemoglobin A1c Lactic Acid Calcium 8.3 L Phosphorus Magnesium Ferritin Total Bilirubin AST ALT Lactate Dehydrogenase C-Reactive Protein Albumin Triglycerides Arterial Blood Glucose 117 H Arterial Blood Ionized Calcium Urine Creatinine Coronavirus (PCR) Crossmatch 02/24/21 02/24/21 02/24/21 04:25 04:25 04:25 WBC 11.5 H RBC 2.47 L Hgb 7.7 L Hct 23.5 L MCV 95 H MCH MCHC RDW 16.7 H Plt Count Lymph % (Auto) Lymph # (Auto) Seg Neutrophils % Seg Neuts % (Manual) 82.0 H Lymphocytes % (Manual) 3.0 L Monocytes % (Manual) 11.0 H Nucleated RBC % Seg Neutrophils # Seg Neutrophils # Man 9.4 H Lymphocytes # (Manual) 0.3 L Monocytes # (Manual) 1.3 H Eosinophils # (Manual) INR D-Dimer 4695.21 H ABG pH POC ABG pCO2 POC ABG pO2 ABG pO2 ABG HCO3 ABG O2 Saturation ABG Base Excess ABG Hemoglobin ABG Oxyhemoglobin ABG Sodium ABG Potassium ABG Chloride ABG Glucose Oxyhemoglobin Carboxyhemoglobin Sodium Potassium Chloride Carbon Dioxide BUN 68 H Creatinine 4.9 H Glucose 113 H POC Glucose Hemoglobin A1c Lactic Acid Calcium Phosphorus Magnesium Ferritin Total Bilirubin AST ALT Lactate Dehydrogenase C-Reactive Protein 7.20 H Albumin Triglycerides Arterial Blood Glucose Arterial Blood Ionized Calcium Urine Creatinine Coronavirus (PCR) Crossmatch 02/24/21 02/24/21 02/24/21 04:25 05:01 11:12 WBC RBC Hgb Hct MCV MCH MCHC RDW Plt Count Lymph % (Auto) Lymph # (Auto) Seg Neutrophils % Seg Neuts % (Manual) Lymphocytes % (Manual) Monocytes % (Manual) Nucleated RBC % Seg Neutrophils # Seg Neutrophils # Man Lymphocytes # (Manual) Monocytes # (Manual) Eosinophils # (Manual) INR D-Dimer ABG pH POC ABG pCO2 POC ABG pO2 ABG pO2 ABG HCO3 ABG O2 Saturation ABG Base Excess ABG Hemoglobin ABG Oxyhemoglobin ABG Sodium ABG Potassium ABG Chloride ABG Glucose Oxyhemoglobin Carboxyhemoglobin Sodium Potassium Chloride Carbon Dioxide BUN Creatinine Glucose POC Glucose 116 H 112 H Hemoglobin A1c Lactic Acid Calcium Phosphorus Magnesium Ferritin 1116.0 H Total Bilirubin AST ALT Lactate Dehydrogenase C-Reactive Protein Albumin Triglycerides Arterial Blood Glucose Arterial Blood Ionized Calcium Urine Creatinine Coronavirus (PCR) Crossmatch 02/24/21 02/25/21 02/25/21 18:11 03:42 05:58 WBC RBC Hgb Hct MCV MCH MCHC RDW Plt Count Lymph % (Auto) Lymph # (Auto) Seg Neutrophils % Seg Neuts % (Manual) Lymphocytes % (Manual) Monocytes % (Manual) Nucleated RBC % Seg Neutrophils # Seg Neutrophils # Man Lymphocytes # (Manual) Monocytes # (Manual) Eosinophils # (Manual) INR D-Dimer ABG pH 7.287 L POC ABG pCO2 58.2 H POC ABG pO2 ABG pO2 ABG HCO3 ABG O2 Saturation ABG Base Excess ABG Hemoglobin 8.4 L ABG Oxyhemoglobin 93.7 L ABG Sodium ABG Potassium ABG Chloride ABG Glucose 104 H Oxyhemoglobin Carboxyhemoglobin Sodium Potassium Chloride Carbon Dioxide BUN Creatinine Glucose POC Glucose 109 H 109 H Hemoglobin A1c Lactic Acid Calcium Phosphorus Magnesium Ferritin Total Bilirubin AST ALT Lactate Dehydrogenase C-Reactive Protein Albumin Triglycerides Arterial Blood Glucose 104 H Arterial Blood Ionized Calcium 4.5 L Urine Creatinine Coronavirus (PCR) Crossmatch 02/25/21 02/25/21 02/25/21 09:03 13:47 16:50 WBC RBC Hgb Hct MCV MCH MCHC RDW Plt Count Lymph % (Auto) Lymph # (Auto) Seg Neutrophils % Seg Neuts % (Manual) Lymphocytes % (Manual) Monocytes % (Manual) Nucleated RBC % Seg Neutrophils # Seg Neutrophils # Man Lymphocytes # (Manual) Monocytes # (Manual) Eosinophils # (Manual) INR D-Dimer 6536.84 H ABG pH POC ABG pCO2 POC ABG pO2 ABG pO2 ABG HCO3 ABG O2 Saturation ABG Base Excess ABG Hemoglobin ABG Oxyhemoglobin ABG Sodium ABG Potassium ABG Chloride ABG Glucose Oxyhemoglobin Carboxyhemoglobin Sodium Potassium Chloride Carbon Dioxide BUN Creatinine Glucose POC Glucose 144 H 114 H Hemoglobin A1c Lactic Acid Calcium Phosphorus Magnesium Ferritin Total Bilirubin AST ALT Lactate Dehydrogenase C-Reactive Protein Albumin Triglycerides Arterial Blood Glucose Arterial Blood Ionized Calcium Urine Creatinine Coronavirus (PCR) Crossmatch 02/25/21 02/26/21 02/26/21 23:53 03:35 05:36 WBC RBC Hgb Hct MCV MCH MCHC RDW Plt Count Lymph % (Auto) Lymph # (Auto) Seg Neutrophils % Seg Neuts % (Manual) Lymphocytes % (Manual) Monocytes % (Manual) Nucleated RBC % Seg Neutrophils # Seg Neutrophils # Man Lymphocytes # (Manual) Monocytes # (Manual) Eosinophils # (Manual) INR D-Dimer ABG pH 7.179 L POC ABG pCO2 76.6 H POC ABG pO2 ABG pO2 ABG HCO3 ABG O2 Saturation ABG Base Excess ABG Hemoglobin 9.0 L ABG Oxyhemoglobin ABG Sodium 134.8 L ABG Potassium ABG Chloride ABG Glucose 118 H Oxyhemoglobin Carboxyhemoglobin Sodium Potassium Chloride Carbon Dioxide BUN Creatinine Glucose POC Glucose 110 H 113 H Hemoglobin A1c Lactic Acid Calcium Phosphorus Magnesium Ferritin Total Bilirubin AST ALT Lactate Dehydrogenase C-Reactive Protein Albumin Triglycerides Arterial Blood Glucose 118 H Arterial Blood Ionized Calcium Urine Creatinine Coronavirus (PCR) Crossmatch 02/26/21 02/26/21 02/26/21 05:48 05:48 05:48 WBC 11.4 H RBC 2.40 L Hgb 7.5 L Hct 23.2 L MCV 97 H MCH MCHC RDW 17.4 H Plt Count Lymph % (Auto) Lymph # (Auto) Seg Neutrophils % Seg Neuts % (Manual) Lymphocytes % (Manual) Monocytes % (Manual) Nucleated RBC % Seg Neutrophils # Seg Neutrophils # Man Lymphocytes # (Manual) Monocytes # (Manual) Eosinophils # (Manual) INR D-Dimer ABG pH POC ABG pCO2 POC ABG pO2 ABG pO2 ABG HCO3 ABG O2 Saturation ABG Base Excess ABG Hemoglobin ABG Oxyhemoglobin ABG Sodium ABG Potassium ABG Chloride ABG Glucose Oxyhemoglobin Carboxyhemoglobin Sodium Potassium Chloride Carbon Dioxide BUN 72 H Creatinine 4.5 H Glucose 112 H POC Glucose Hemoglobin A1c Lactic Acid Calcium 7.7 L Phosphorus Magnesium Ferritin 867.8 H Total Bilirubin AST ALT Lactate Dehydrogenase C-Reactive Protein 5.90 H Albumin Triglycerides Arterial Blood Glucose Arterial Blood Ionized Calcium Urine Creatinine Coronavirus (PCR) Crossmatch 02/26/21 02/26/21 02/26/21 08:00 11:29 18:13 WBC RBC Hgb Hct MCV MCH MCHC RDW Plt Count Lymph % (Auto) Lymph # (Auto) Seg Neutrophils % Seg Neuts % (Manual) Lymphocytes % (Manual) Monocytes % (Manual) Nucleated RBC % Seg Neutrophils # Seg Neutrophils # Man Lymphocytes # (Manual) Monocytes # (Manual) Eosinophils # (Manual) INR D-Dimer ABG pH 7.228 L POC ABG pCO2 70.2 H POC ABG pO2 79.7 L ABG pO2 ABG HCO3 ABG O2 Saturation ABG Base Excess ABG Hemoglobin 7.6 L ABG Oxyhemoglobin 93.2 L ABG Sodium 135.7 L ABG Potassium ABG Chloride ABG Glucose 119 H Oxyhemoglobin Carboxyhemoglobin Sodium Potassium Chloride Carbon Dioxide BUN Creatinine Glucose POC Glucose 110 H 115 H Hemoglobin A1c Lactic Acid Calcium Phosphorus Magnesium Ferritin Total Bilirubin AST ALT Lactate Dehydrogenase C-Reactive Protein Albumin Triglycerides Arterial Blood Glucose 119 H Arterial Blood Ionized Calcium Urine Creatinine Coronavirus (PCR) Crossmatch 02/26/21 02/27/21 02/27/21 23:18 04:00 05:04 WBC RBC Hgb Hct MCV MCH MCHC RDW Plt Count Lymph % (Auto) Lymph # (Auto) Seg Neutrophils % Seg Neuts % (Manual) Lymphocytes % (Manual) Monocytes % (Manual) Nucleated RBC % Seg Neutrophils # Seg Neutrophils # Man Lymphocytes # (Manual) Monocytes # (Manual) Eosinophils # (Manual) INR D-Dimer ABG pH 7.316 L POC ABG pCO2 49.0 H POC ABG pO2 111.2 H ABG pO2 ABG HCO3 ABG O2 Saturation ABG Base Excess ABG Hemoglobin 7.7 L ABG Oxyhemoglobin ABG Sodium 135.0 L ABG Potassium ABG Chloride ABG Glucose 113 H Oxyhemoglobin Carboxyhemoglobin Sodium Potassium Chloride Carbon Dioxide BUN Creatinine Glucose POC Glucose 114 H 112 H Hemoglobin A1c Lactic Acid Calcium Phosphorus Magnesium Ferritin Total Bilirubin AST ALT Lactate Dehydrogenase C-Reactive Protein Albumin Triglycerides Arterial Blood Glucose 113 H Arterial Blood Ionized Calcium 4.4 L Urine Creatinine Coronavirus (PCR) Crossmatch 02/27/21 02/27/21 02/27/21 12:13 18:30 23:40 WBC RBC Hgb Hct MCV MCH MCHC RDW Plt Count Lymph % (Auto) Lymph # (Auto) Seg Neutrophils % Seg Neuts % (Manual) Lymphocytes % (Manual) Monocytes % (Manual) Nucleated RBC % Seg Neutrophils # Seg Neutrophils # Man Lymphocytes # (Manual) Monocytes # (Manual) Eosinophils # (Manual) INR D-Dimer ABG pH POC ABG pCO2 POC ABG pO2 ABG pO2 ABG HCO3 ABG O2 Saturation ABG Base Excess ABG Hemoglobin ABG Oxyhemoglobin ABG Sodium ABG Potassium ABG Chloride ABG Glucose Oxyhemoglobin Carboxyhemoglobin Sodium Potassium Chloride Carbon Dioxide BUN Creatinine Glucose POC Glucose 127 H 129 H 115 H Hemoglobin A1c Lactic Acid Calcium Phosphorus Magnesium Ferritin Total Bilirubin AST ALT Lactate Dehydrogenase C-Reactive Protein Albumin Triglycerides Arterial Blood Glucose Arterial Blood Ionized Calcium Urine Creatinine Coronavirus (PCR) Crossmatch 02/28/21 02/28/21 02/28/21 04:07 05:29 10:22 WBC RBC Hgb Hct MCV MCH MCHC RDW Plt Count Lymph % (Auto) Lymph # (Auto) Seg Neutrophils % Seg Neuts % (Manual) Lymphocytes % (Manual) Monocytes % (Manual) Nucleated RBC % Seg Neutrophils # Seg Neutrophils # Man Lymphocytes # (Manual) Monocytes # (Manual) Eosinophils # (Manual) INR D-Dimer ABG pH 7.260 L POC ABG pCO2 67.6 H POC ABG pO2 ABG pO2 ABG HCO3 ABG O2 Saturation ABG Base Excess ABG Hemoglobin 7.9 L ABG Oxyhemoglobin ABG Sodium ABG Potassium ABG Chloride ABG Glucose 129 H Oxyhemoglobin Carboxyhemoglobin Sodium Potassium Chloride Carbon Dioxide BUN 68 H Creatinine 3.5 H Glucose 117 H POC Glucose 117 H Hemoglobin A1c Lactic Acid Calcium 7.9 L Phosphorus Magnesium Ferritin Total Bilirubin AST ALT Lactate Dehydrogenase C-Reactive Protein Albumin Triglycerides Arterial Blood Glucose 129 H Arterial Blood Ionized Calcium Urine Creatinine Coronavirus (PCR) Crossmatch 02/28/21 02/28/21 03/01/21 11:51 17:26 00:31 WBC RBC Hgb Hct MCV MCH MCHC RDW Plt Count Lymph % (Auto) Lymph # (Auto) Seg Neutrophils % Seg Neuts % (Manual) Lymphocytes % (Manual) Monocytes % (Manual) Nucleated RBC % Seg Neutrophils # Seg Neutrophils # Man Lymphocytes # (Manual) Monocytes # (Manual) Eosinophils # (Manual) INR D-Dimer ABG pH POC ABG pCO2 POC ABG pO2 ABG pO2 ABG HCO3 ABG O2 Saturation ABG Base Excess ABG Hemoglobin ABG Oxyhemoglobin ABG Sodium ABG Potassium ABG Chloride ABG Glucose Oxyhemoglobin Carboxyhemoglobin Sodium Potassium Chloride Carbon Dioxide BUN Creatinine Glucose POC Glucose 123 H 121 H 112 H Hemoglobin A1c Lactic Acid Calcium Phosphorus Magnesium Ferritin Total Bilirubin AST ALT Lactate Dehydrogenase C-Reactive Protein Albumin Triglycerides Arterial Blood Glucose Arterial Blood Ionized Calcium Urine Creatinine Coronavirus (PCR) Crossmatch 03/01/21 03/01/21 03/01/21 03:29 06:00 06:17 WBC RBC Hgb Hct MCV MCH MCHC RDW Plt Count Lymph % (Auto) Lymph # (Auto) Seg Neutrophils % Seg Neuts % (Manual) Lymphocytes % (Manual) Monocytes % (Manual) Nucleated RBC % Seg Neutrophils # Seg Neutrophils # Man Lymphocytes # (Manual) Monocytes # (Manual) Eosinophils # (Manual) INR D-Dimer ABG pH POC ABG pCO2 52.3 H POC ABG pO2 115.1 H ABG pO2 ABG HCO3 ABG O2 Saturation ABG Base Excess ABG Hemoglobin 7.5 L ABG Oxyhemoglobin ABG Sodium 135.6 L ABG Potassium ABG Chloride ABG Glucose 117 H Oxyhemoglobin Carboxyhemoglobin 1.6 H Sodium Potassium Chloride Carbon Dioxide BUN 78 H Creatinine 3.6 H Glucose 110 H POC Glucose 121 H Hemoglobin A1c Lactic Acid Calcium 8.0 L Phosphorus Magnesium Ferritin Total Bilirubin AST ALT Lactate Dehydrogenase C-Reactive Protein Albumin Triglycerides Arterial Blood Glucose 117 H Arterial Blood Ionized Calcium Urine Creatinine Coronavirus (PCR) Crossmatch 03/01/21 03/02/21 03/02/21 23:22 04:43 05:46 WBC RBC Hgb Hct MCV MCH MCHC RDW Plt Count Lymph % (Auto) Lymph # (Auto) Seg Neutrophils % Seg Neuts % (Manual) Lymphocytes % (Manual) Monocytes % (Manual) Nucleated RBC % Seg Neutrophils # Seg Neutrophils # Man Lymphocytes # (Manual) Monocytes # (Manual) Eosinophils # (Manual) INR D-Dimer ABG pH POC ABG pCO2 POC ABG pO2 ABG pO2 ABG HCO3 ABG O2 Saturation ABG Base Excess ABG Hemoglobin ABG Oxyhemoglobin ABG Sodium ABG Potassium ABG Chloride ABG Glucose Oxyhemoglobin Carboxyhemoglobin Sodium Potassium Chloride Carbon Dioxide BUN 89 H Creatinine 3.6 H Glucose 116 H POC Glucose 116 H 126 H Hemoglobin A1c Lactic Acid Calcium 7.7 L Phosphorus Magnesium Ferritin Total Bilirubin AST ALT Lactate Dehydrogenase C-Reactive Protein Albumin Triglycerides Arterial Blood Glucose Arterial Blood Ionized Calcium Urine Creatinine Coronavirus (PCR) Crossmatch 03/02/21 03/02/21 03/02/21 08:35 11:35 15:17 WBC RBC 2.15 L Hgb 7.1 L Hct 20.4 L MCV 95 H MCH 33 H MCHC 35 H RDW 17.6 H Plt Count Lymph % (Auto) Lymph # (Auto) Seg Neutrophils % Seg Neuts % (Manual) Lymphocytes % (Manual) Monocytes % (Manual) Nucleated RBC % Seg Neutrophils # Seg Neutrophils # Man Lymphocytes # (Manual) Monocytes # (Manual) Eosinophils # (Manual) INR D-Dimer ABG pH POC ABG pCO2 POC ABG pO2 ABG pO2 ABG HCO3 ABG O2 Saturation ABG Base Excess ABG Hemoglobin ABG Oxyhemoglobin ABG Sodium ABG Potassium ABG Chloride ABG Glucose Oxyhemoglobin Carboxyhemoglobin Sodium Potassium Chloride Carbon Dioxide BUN Creatinine Glucose POC Glucose 117 H Hemoglobin A1c Lactic Acid Calcium Phosphorus Magnesium Ferritin Total Bilirubin AST ALT Lactate Dehydrogenase C-Reactive Protein Albumin Triglycerides Arterial Blood Glucose Arterial Blood Ionized Calcium Urine Creatinine Coronavirus (PCR) Positive A Crossmatch 03/02/21 03/02/21 03/02/21 17:50 23:26 Unknown WBC RBC Hgb Hct MCV MCH MCHC RDW Plt Count Lymph % (Auto) Lymph # (Auto) Seg Neutrophils % Seg Neuts % (Manual) Lymphocytes % (Manual) Monocytes % (Manual) Nucleated RBC % Seg Neutrophils # Seg Neutrophils # Man Lymphocytes # (Manual) Monocytes # (Manual) Eosinophils # (Manual) INR D-Dimer ABG pH 7.282 L POC ABG pCO2 POC ABG pO2 ABG pO2 150.8 H ABG HCO3 30.1 H ABG O2 Saturation ABG Base Excess ABG Hemoglobin 6.9 L ABG Oxyhemoglobin ABG Sodium ABG Potassium ABG Chloride ABG Glucose Oxyhemoglobin Carboxyhemoglobin Sodium Potassium Chloride Carbon Dioxide BUN Creatinine Glucose POC Glucose 131 H 143 H Hemoglobin A1c Lactic Acid Calcium Phosphorus Magnesium Ferritin Total Bilirubin AST ALT Lactate Dehydrogenase C-Reactive Protein Albumin Triglycerides Arterial Blood Glucose Arterial Blood Ionized Calcium Urine Creatinine Coronavirus (PCR) Crossmatch 03/03/21 03/03/21 03/03/21 03:50 05:46 17:16 WBC RBC Hgb Hct MCV MCH MCHC RDW Plt Count Lymph % (Auto) Lymph # (Auto) Seg Neutrophils % Seg Neuts % (Manual) Lymphocytes % (Manual) Monocytes % (Manual) Nucleated RBC % Seg Neutrophils # Seg Neutrophils # Man Lymphocytes # (Manual) Monocytes # (Manual) Eosinophils # (Manual) INR D-Dimer ABG pH 7.276 L POC ABG pCO2 POC ABG pO2 ABG pO2 ABG HCO3 31.7 H ABG O2 Saturation ABG Base Excess 4.3 H ABG Hemoglobin 6.7 L ABG Oxyhemoglobin ABG Sodium ABG Potassium ABG Chloride ABG Glucose Oxyhemoglobin 93.5 L Carboxyhemoglobin Sodium Potassium Chloride Carbon Dioxide BUN Creatinine Glucose POC Glucose 107 H 109 H Hemoglobin A1c Lactic Acid Calcium Phosphorus Magnesium Ferritin Total Bilirubin AST ALT Lactate Dehydrogenase C-Reactive Protein Albumin Triglycerides Arterial Blood Glucose Arterial Blood Ionized Calcium Urine Creatinine Coronavirus (PCR) Crossmatch 03/03/21 03/03/21 03/03/21 23:34 Unknown Unknown WBC 12.4 H RBC 2.26 L Hgb 6.8 L Hct 21.8 L MCV 96 H MCH MCHC 31 L RDW 18.5 H Plt Count Lymph % (Auto) Lymph # (Auto) Seg Neutrophils % Seg Neuts % (Manual) Lymphocytes % (Manual) Monocytes % (Manual) Nucleated RBC % Seg Neutrophils # Seg Neutrophils # Man Lymphocytes # (Manual) Monocytes # (Manual) Eosinophils # (Manual) INR D-Dimer ABG pH POC ABG pCO2 POC ABG pO2 ABG pO2 ABG HCO3 ABG O2 Saturation ABG Base Excess ABG Hemoglobin ABG Oxyhemoglobin ABG Sodium ABG Potassium ABG Chloride ABG Glucose Oxyhemoglobin Carboxyhemoglobin Sodium Potassium Chloride Carbon Dioxide BUN 70 H Creatinine 2.6 H Glucose 118 H POC Glucose 135 H Hemoglobin A1c Lactic Acid Calcium Phosphorus Magnesium Ferritin Total Bilirubin AST ALT Lactate Dehydrogenase C-Reactive Protein Albumin Triglycerides Arterial Blood Glucose Arterial Blood Ionized Calcium Urine Creatinine Coronavirus (PCR) Crossmatch 03/03/21 03/03/21 03/04/21 Unknown Unknown 03:15 WBC RBC Hgb Hct MCV MCH MCHC RDW Plt Count Lymph % (Auto) Lymph # (Auto) Seg Neutrophils % Seg Neuts % (Manual) Lymphocytes % (Manual) Monocytes % (Manual) Nucleated RBC % Seg Neutrophils # Seg Neutrophils # Man Lymphocytes # (Manual) Monocytes # (Manual) Eosinophils # (Manual) INR 1.15 H D-Dimer ABG pH 7.285 L POC ABG pCO2 POC ABG pO2 ABG pO2 ABG HCO3 28.8 H ABG O2 Saturation ABG Base Excess ABG Hemoglobin 8.3 L ABG Oxyhemoglobin ABG Sodium ABG Potassium ABG Chloride ABG Glucose Oxyhemoglobin 93.4 L Carboxyhemoglobin Sodium Potassium Chloride Carbon Dioxide BUN Creatinine Glucose POC Glucose Hemoglobin A1c Lactic Acid Calcium Phosphorus Magnesium Ferritin Total Bilirubin AST ALT Lactate Dehydrogenase C-Reactive Protein Albumin Triglycerides Arterial Blood Glucose Arterial Blood Ionized Calcium Urine Creatinine Coronavirus (PCR) Crossmatch See Detail 03/04/21 03/04/21 03/04/21 03:28 05:39 11:47 WBC RBC Hgb Hct MCV MCH MCHC RDW Plt Count Lymph % (Auto) Lymph # (Auto) Seg Neutrophils % Seg Neuts % (Manual) Lymphocytes % (Manual) Monocytes % (Manual) Nucleated RBC % Seg Neutrophils # Seg Neutrophils # Man Lymphocytes # (Manual) Monocytes # (Manual) Eosinophils # (Manual) INR D-Dimer ABG pH 7.285 L POC ABG pCO2 62.0 H POC ABG pO2 80.9 L ABG pO2 ABG HCO3 ABG O2 Saturation ABG Base Excess ABG Hemoglobin 8.3 L ABG Oxyhemoglobin ABG Sodium ABG Potassium ABG Chloride ABG Glucose 144 H Oxyhemoglobin Carboxyhemoglobin Sodium Potassium Chloride Carbon Dioxide BUN Creatinine Glucose POC Glucose 123 H 125 H Hemoglobin A1c Lactic Acid Calcium Phosphorus Magnesium Ferritin Total Bilirubin AST ALT Lactate Dehydrogenase C-Reactive Protein Albumin Triglycerides Arterial Blood Glucose 144 H Arterial Blood Ionized Calcium Urine Creatinine Coronavirus (PCR) Crossmatch 03/04/21 03/04/21 03/04/21 16:49 Unknown Unknown WBC 13.9 H RBC 2.58 L Hgb 7.7 L Hct 24.0 L MCV MCH MCHC RDW 20.3 H Plt Count Lymph % (Auto) Lymph # (Auto) Seg Neutrophils % Seg Neuts % (Manual) Lymphocytes % (Manual) Monocytes % (Manual) Nucleated RBC % Seg Neutrophils # Seg Neutrophils # Man Lymphocytes # (Manual) Monocytes # (Manual) Eosinophils # (Manual) INR D-Dimer ABG pH POC ABG pCO2 POC ABG pO2 ABG pO2 ABG HCO3 ABG O2 Saturation ABG Base Excess ABG Hemoglobin ABG Oxyhemoglobin ABG Sodium ABG Potassium ABG Chloride ABG Glucose Oxyhemoglobin Carboxyhemoglobin Sodium Potassium Chloride Carbon Dioxide BUN 78 H Creatinine 2.5 H Glucose 131 H POC Glucose 120 H Hemoglobin A1c Lactic Acid Calcium 8.2 L Phosphorus Magnesium Ferritin Total Bilirubin AST ALT Lactate Dehydrogenase C-Reactive Protein Albumin Triglycerides Arterial Blood Glucose Arterial Blood Ionized Calcium Urine Creatinine Coronavirus (PCR) Crossmatch 03/05/21 03/05/21 03/05/21 00:31 04:18 05:30 WBC RBC Hgb Hct MCV MCH MCHC RDW Plt Count Lymph % (Auto) Lymph # (Auto) Seg Neutrophils % Seg Neuts % (Manual) Lymphocytes % (Manual) Monocytes % (Manual) Nucleated RBC % Seg Neutrophils # Seg Neutrophils # Man Lymphocytes # (Manual) Monocytes # (Manual) Eosinophils # (Manual) INR D-Dimer ABG pH 7.160 L POC ABG pCO2 86.3 H POC ABG pO2 55.9 L ABG pO2 ABG HCO3 ABG O2 Saturation ABG Base Excess ABG Hemoglobin 8.3 L ABG Oxyhemoglobin 82.1 L ABG Sodium ABG Potassium ABG Chloride 108.0 H ABG Glucose 149 H Oxyhemoglobin Carboxyhemoglobin 1.7 H Sodium Potassium Chloride Carbon Dioxide BUN Creatinine Glucose POC Glucose 129 H 133 H Hemoglobin A1c Lactic Acid Calcium Phosphorus Magnesium Ferritin Total Bilirubin AST ALT Lactate Dehydrogenase C-Reactive Protein Albumin Triglycerides Arterial Blood Glucose 149 H Arterial Blood Ionized Calcium Urine Creatinine Coronavirus (PCR) Crossmatch 03/05/21 03/05/21 03/05/21 09:00 11:31 16:55 WBC RBC Hgb Hct MCV MCH MCHC RDW Plt Count Lymph % (Auto) Lymph # (Auto) Seg Neutrophils % Seg Neuts % (Manual) Lymphocytes % (Manual) Monocytes % (Manual) Nucleated RBC % Seg Neutrophils # Seg Neutrophils # Man Lymphocytes # (Manual) Monocytes # (Manual) Eosinophils # (Manual) INR D-Dimer ABG pH POC ABG pCO2 POC ABG pO2 ABG pO2 ABG HCO3 ABG O2 Saturation ABG Base Excess ABG Hemoglobin ABG Oxyhemoglobin ABG Sodium ABG Potassium ABG Chloride ABG Glucose Oxyhemoglobin Carboxyhemoglobin Sodium Potassium Chloride Carbon Dioxide BUN 84 H Creatinine 2.3 H Glucose 143 H POC Glucose 133 H 146 H Hemoglobin A1c Lactic Acid Calcium 8.0 L Phosphorus Magnesium Ferritin Total Bilirubin AST ALT Lactate Dehydrogenase C-Reactive Protein Albumin Triglycerides Arterial Blood Glucose Arterial Blood Ionized Calcium Urine Creatinine Coronavirus (PCR) Crossmatch 03/05/21 03/05/21 03/05/21 23:20 Unknown Unknown WBC RBC Hgb Hct MCV MCH MCHC RDW Plt Count Lymph % (Auto) Lymph # (Auto) Seg Neutrophils % Seg Neuts % (Manual) Lymphocytes % (Manual) Monocytes % (Manual) Nucleated RBC % Seg Neutrophils # Seg Neutrophils # Man Lymphocytes # (Manual) Monocytes # (Manual) Eosinophils # (Manual) INR D-Dimer ABG pH POC ABG pCO2 POC ABG pO2 ABG pO2 ABG HCO3 ABG O2 Saturation ABG Base Excess ABG Hemoglobin ABG Oxyhemoglobin ABG Sodium ABG Potassium ABG Chloride ABG Glucose Oxyhemoglobin Carboxyhemoglobin Sodium Potassium Chloride Carbon Dioxide BUN Creatinine Glucose POC Glucose 144 H Hemoglobin A1c Lactic Acid Calcium Phosphorus Magnesium Ferritin Total Bilirubin AST ALT Lactate Dehydrogenase C-Reactive Protein Albumin Triglycerides Arterial Blood Glucose Arterial Blood Ionized Calcium Urine Creatinine 65.9 H 66.1 H Coronavirus (PCR) Crossmatch 03/06/21 03/06/21 03:23 05:20 WBC RBC Hgb Hct MCV MCH MCHC RDW Plt Count Lymph % (Auto) Lymph # (Auto) Seg Neutrophils % Seg Neuts % (Manual) Lymphocytes % (Manual) Monocytes % (Manual) Nucleated RBC % Seg Neutrophils # Seg Neutrophils # Man Lymphocytes # (Manual) Monocytes # (Manual) Eosinophils # (Manual) INR D-Dimer ABG pH 7.239 L POC ABG pCO2 67.0 H POC ABG pO2 76.6 L ABG pO2 ABG HCO3 ABG O2 Saturation ABG Base Excess ABG Hemoglobin 8.0 L ABG Oxyhemoglobin 92.4 L ABG Sodium 145.6 H ABG Potassium ABG Chloride 108.0 H ABG Glucose 134 H Oxyhemoglobin Carboxyhemoglobin 2.1 H Sodium Potassium Chloride Carbon Dioxide BUN Creatinine Glucose POC Glucose 114 H Hemoglobin A1c Lactic Acid Calcium Phosphorus Magnesium Ferritin Total Bilirubin AST ALT Lactate Dehydrogenase C-Reactive Protein Albumin Triglycerides Arterial Blood Glucose 134 H Arterial Blood Ionized Calcium Urine Creatinine Coronavirus (PCR) Crossmatch
--- NOTE | 2021-03-06 11:23 | Progress Note ---
Assessment and Plan Cultures: Blood culture 02/08/2021 no growth today SARS CoV2 PCR positive 01/22/2021 respiratory culture: Usual respiratory dillon Blood Culture 01/30/2021 no growth today Urine culture 01/30/2021 no growth today Sputum culture 01/30/2021 usual respiratory dillon Blood culture 02/04/2021 coag negative staph 2 of 4 Urine culture 02/04/2021 no growth Sputum culture 02/04/2021 Maegan albicans 03/02/2021 COVID-19 PCR: Positive Assessment: 60 year old male with history of morbid obesity admitted on 01/22/2021 secondary to 3-day history of worsening shortness of breath associated with fever, chills, loss of smell and taste: #Severe sepsis with septic shock: resolved, off pressors. #Coag-neg Staph bacteremia: Completed treatment 7 days of vancomycin. #Critical COVID-19 pneumonia: Patient remains intubated. Completed remdesivir, steroids, empiric abx course. #Acute respiratory failure: Remains on the vent. #Acute renal failure: nephrology following, on intermittent hemodialysis, creatinine gradually improving. Recommendations: -non-infectious COVID-19 (see previous notes for discussion) -low grade fevers, multifactorial (prolonged vent related sinusitis, atelectasis, etc). Monitor for now Melida Byrne MD, FACP [facility] O: [phone] F: [phone] Subjective Date of service: 03/06/21 Principal diagnosis: DEISI Interval history: Low grade fever intermittently. Remains on the vent. Objective - Exam Narrative Exam: Physical Exam Constitutional: Eyes open but unresponsive, intubated, on the vent Head, Ears, Nose: Normocephalic, atraumatic. External ears, nose normal Eyes: Conjunctivae/corneas clear. No icterus. No ptosis. Neck: intubated Oral: intubated Cardiovascular: S1, S2 + Respiratory: AE fair bilaterally and equal GI: Soft, bowel sounds + Musculoskeletal: No pedal edema, no cyanosis. Skin: No rash or abscess Hem/Lymphatic: No palpable cervical or supraclavicular nodes. No lymphangitis Psych: no agitation Neurological: Opens eyes but does not follow any commands, intubated, on the vent, exam limited - Constitutional Vitals: Vital Signs Temp Pulse Resp BP Pulse Ox 98.9 F 104 H 34 H 115/68 96 03/06/21 07:59 03/06/21 09:22 03/06/21 08:45 03/06/21 09:22 03/06/21 09:22 Temperature -Last 24 Hours Temperature 98.9 F Temperature 98.9 F Temperature 99.8 F Temperature 98.1 F Temperature 99.6 F Temperature 99.1 F - Labs CBC & Chem 7: 03/04/21 Unknown 03/05/21 09:00 Labs: Abnormal lab results 03/05/21 03/05/21 03/05/21 Range/Units 11:31 16:55 23:20 ABG pH (7.320-7.450) POC ABG pCO2 (32.0-48.0) mmHg POC ABG pO2 (83-108) mmHg ABG Hemoglobin (12.0-17.5) ABG Oxyhemoglobin (94-98) ABG Sodium (136.0-145.0) mmol/L ABG Chloride (98-107) mmol/L ABG Glucose (65-95) mg/dL Carboxyhemoglobin (0.5-1.5) POC Glucose 133 H 146 H 144 H (70-105) mg/dL Arterial Blood Glucose (65-95) mg/dL Urine Creatinine (0.1-20.0) mg/dL 03/05/21 03/05/21 03/06/21 Range/Units Unknown Unknown 03:23 ABG pH 7.239 L (7.320-7.450) POC ABG pCO2 67.0 H (32.0-48.0) mmHg POC ABG pO2 76.6 L (83-108) mmHg ABG Hemoglobin 8.0 L (12.0-17.5) ABG Oxyhemoglobin 92.4 L (94-98) ABG Sodium 145.6 H (136.0-145.0) mmol/L ABG Chloride 108.0 H (98-107) mmol/L ABG Glucose 134 H (65-95) mg/dL Carboxyhemoglobin 2.1 H (0.5-1.5) POC Glucose (70-105) mg/dL Arterial Blood Glucose 134 H (65-95) mg/dL Urine Creatinine 65.9 H 66.1 H (0.1-20.0) mg/dL 03/06/21 Range/Units 05:20 ABG pH (7.320-7.450) POC ABG pCO2 (32.0-48.0) mmHg POC ABG pO2 (83-108) mmHg ABG Hemoglobin (12.0-17.5) ABG Oxyhemoglobin (94-98) ABG Sodium (136.0-145.0) mmol/L ABG Chloride (98-107) mmol/L ABG Glucose (65-95) mg/dL Carboxyhemoglobin (0.5-1.5) POC Glucose 114 H (70-105) mg/dL Arterial Blood Glucose (65-95) mg/dL Urine Creatinine (0.1-20.0) mg/dL
--- NOTE | 2021-03-06 12:57 | Progress Note ---
Assessment and Plan Acute Hypoxic respiratory failure COVID-19 PNA Severe sepsis with septic shock Acute kidney injury secondary to ATN Hyperkalemia Hypernatremia DM2 on insulin Anemia Plan: labs are pending today, however, creatinine clearance was 26 and UOP is improving please remove vascath. he may still need HD, if so will request permcath Initiated on HD on 02/03/21 Strict I&O's monitoring Renally dose medications Assess dialysis needs daily Monitor for renal recovery Subjective Date of service: 03/06/21 Principal diagnosis: DEISI Interval history: on the vent Objective - Vital Signs Vital signs: Vital Signs - 12hr 03/06/21 03/06/21 03/06/21 01:00 01:15 01:30 Temperature Pulse Rate 108 H 108 H 111 H Respiratory 42 H 13 40 H Rate Blood Pressure 101/59 109/59 106/62 O2 Sat by Pulse 91 92 Oximetry 03/06/21 03/06/21 03/06/21 01:45 02:00 02:15 Temperature Pulse Rate 109 H 109 H 107 H Respiratory 40 H 40 H 39 H Rate Blood Pressure 102/54 101/57 91/53 O2 Sat by Pulse 93 100 96 Oximetry 03/06/21 03/06/21 03/06/21 02:30 02:45 03:00 Temperature Pulse Rate 107 H 107 H 106 H Respiratory 37 H 40 H 40 H Rate Blood Pressure 105/64 106/60 102/61 O2 Sat by Pulse 95 94 93 Oximetry 03/06/21 03/06/21 03/06/21 03:15 03:30 03:45 Temperature 98.9 F Pulse Rate 105 H 102 H 105 H Respiratory 40 H 40 H 39 H Rate Blood Pressure 107/65 102/59 107/66 O2 Sat by Pulse 94 95 95 Oximetry 03/06/21 03/06/21 03/06/21 04:00 04:15 04:30 Temperature Pulse Rate 102 H 103 H 102 H Respiratory 40 H 40 H 40 H Rate Blood Pressure 100/60 104/63 99/57 O2 Sat by Pulse 95 95 Oximetry 03/06/21 03/06/21 03/06/21 04:45 04:51 05:00 Temperature Pulse Rate 103 H 102 H 100 H Respiratory 36 H 40 H Rate Blood Pressure 107/65 107/65 100/58 O2 Sat by Pulse 96 98 Oximetry 0503/06/21 03/06/21 05:15 05:30 05:45 Temperature Pulse Rate 101 H 102 H Respiratory 36 H 40 H Rate Blood Pressure 108/65 105/65 114/73 O2 Sat by Pulse 96 96 94 Oximetry 03/06/21 03/06/21 03/06/21 06:00 06:15 06:30 Temperature Pulse Rate 102 H 101 H 100 H Respiratory 40 H 40 H 40 H Rate Blood Pressure 104/60 92/53 99/55 O2 Sat by Pulse 94 95 Oximetry 03/06/21 03/06/21 03/06/21 06:45 07:00 07:15 Temperature Pulse Rate 102 H 101 H 101 H Respiratory 33 H 35 H 34 H Rate Blood Pressure 109/64 110/66 113/63 O2 Sat by Pulse 94 94 96 Oximetry 03/06/21 03/06/21 03/06/21 07:30 07:45 07:59 Temperature 98.9 F Pulse Rate 103 H 105 H Respiratory 36 H 33 H Rate Blood Pressure 113/65 115/65 O2 Sat by Pulse 93 95 Oximetry 03/06/21 03/06/21 03/06/21 08:00 08:15 08:30 Temperature Pulse Rate 104 H 104 H 105 H Respiratory 33 H 34 H 33 H Rate Blood Pressure 115/65 112/64 115/64 O2 Sat by Pulse 96 96 96 Oximetry 03/06/21 03/06/21 03/06/21 08:45 09:22 12:20 Temperature Pulse Rate 105 H 104 H 109 H Respiratory 34 H Rate Blood Pressure 112/62 115/68 127/74 O2 Sat by Pulse 94 96 98 Oximetry 03/06/21 12:21 Temperature 98.3 F Pulse Rate Respiratory Rate Blood Pressure O2 Sat by Pulse Oximetry - Lab 03/04/21 Unknown 03/05/21 09:00 Most recent lab results ABG pH 7.239 (7.320-7.450) L 03/06/21 03:23 ABG pCO2 62.0 mm Hg 03/04/21 03:15 ABG pO2 80.9 mm Hg (80.0-90.0) 03/04/21 03:15 ABG HCO3 28.8 mmol/L (20.0-26.0) H 03/04/21 03:15 ABG O2 Saturation 94.4 (0-100) 03/06/21 03:23 Calcium 8.0 mg/dL (8.4-10.2) L 03/05/21 09:00 Phosphorus 7.90 mg/dL (2.5-4.5) H 02/21/21 16:35 Magnesium 2.60 mg/dL (1.7-2.3) H 02/21/21 16:35 Urine Creatinine 65.9 mg/dL (0.1-20.0) H 03/05/21 Unknown Urine Creatinine 66.1 mg/dL (0.1-20.0) H 03/05/21 Unknown Urine Sodium 28 mmol/L 01/22/21 22:39 Medications & Allergies - Medications Allergies/Adverse Reactions: Allergies No Known Allergies Allergy (Unverified 03/12/20 13:41) Home Medications: Home Medications Medication Instructions Recorded Confirmed Last Taken Type Insulin NPH/Regular [Novolin 70/30] 18 unit SUB-Q TIDAC #1 vial 03/12/20 03/02/21 Unknown Rx Syringe-Needle,Insulin,0.5 ml 1 box MC TID #1 box 03/12/20 03/02/21 Unknown Rx [Insulin Syringe/Needle 0.5 ML] Active Medications: Generic Name Dose Route Start Last Admin Trade Name Freq PRN Reason Stop Dose Admin Acetaminophen 650 mg 01/24/21 12:58 02/25/21 13:31 Acetaminophen 325 Mg/10.15 Ml Oral Liqd Unit Dose FEEDTUBE 650 mg Q6H PRN Administration Pain, Mild (1-3) Lipase/Protease/Amylase 1 each 01/26/21 14:25 Lipase 10,500/Protease 25,000/Amylase 43,750 (Units) Dr Claudio FEEDTUBE PRN PRN For Clogged Feeding Tube Dextrose 50 ml 01/27/21 07:24 Dextrose 50% In Water (25gm) 50 Ml Syringe IV Q30MIN PRN Hypoglycemia Protocol Fentanyl 50 mcg 01/22/21 22:39 02/25/21 10:25 Fentanyl 100 Mcg/2 Ml Inj IV 50 mcg Q10MIN PRN Administration ANALGESIA Heparin Sodium (Porcine) 2,000 unit 02/11/21 09:38 02/21/21 21:25 Heparin 10,000 Units/10 Ml Vial IV 2,000 unit SAGRARIO PRN Administration hemodialysis Heparin Sodium (Porcine) 5,000 unit 02/19/21 14:00 03/06/21 05:49 Heparin 5,000 Unit/1 Ml Vial SUB-Q 5,000 unit Q8HR CECE Administration Fentanyl Citrate 2,000 mcg in 100 mls @ 6.124 mls/hr 01/22/21 23:00 03/06/21 08:00 Fentanyl Drip Premix IV 1 mcg/kg/hr TITR CECE 6.124 mls/hr Titration Protocol 1 MCG/KG/HR Propofol 1,000 mg in 100 mls @ 3.674 mls/hr 01/22/21 23:45 02/21/21 08:30 Diprivan 10 Mg/Ml IV 0 mcg/kg/min TITR CECE 0 mls/hr Titration Protocol 5 MCG/KG/MIN Norepinephrine 4 mg in 250 mls @ 7.5 mls/hr 01/28/21 14:00 02/22/21 18:27 Levophed Drip 4 Mg/Ns 250 Ml IV 0 mcg/min TITR CECE 0 mls/hr Titration Protocol 2 MCG/MIN Dexmedetomidine HCl 1,000 mcg/ 260 mls @ 6.368 mls/hr 01/30/21 20:00 03/06/21 08:00 Sodium Chloride IV 0.5 mcg/kg/hr TITRATE CECE 15.921 mls/hr Titration Protocol 0.2 MCG/KG/HR Sodium Chloride 100 mls @ 999 mls/hr 02/27/21 11:00 Nacl 0.9% IV SAGRARIO PRN Hypotension Lansoprazole 30 mg 02/18/21 10:00 03/06/21 09:51 Lansoprazole 30 Mg Solutab FEEDTUBE 30 mg QDAY CECE Administration Neomycin/Polymyxin/Bacitracin 1 applic 03/02/21 15:00 03/06/21 07:29 Neomy 3.5 Mg/Bacit 400 Units/Poly B 5000 Units/Gm Oint Packet TP Not Given TID CECE Senna/Docusate Sodium 1 tab 02/25/21 10:00 03/06/21 09:51 Sennosides/Docusate Sodium 8.6/50 Mg Tab PO 1 tab BID CECE Administration Simple Syrup 15 ml 01/26/21 14:25 02/21/21 21:24 Simple Syrup 15 Ml FEEDTUBE 15 ml PRN PRN Administration Hypoglycemia Simple Syrup 30 ml 01/26/21 14:25 Simple Syrup 15 Ml FEEDTUBE PRN PRN Hypoglycemia Sodium Bicarbonate 325 mg 01/26/21 14:25 Sodium Bicarbonate 325 Mg Tab FEEDTUBE PRN PRN For Clogged Feeding Tube Sodium Hypochlorite 1 applic 03/05/21 22:00 03/06/21 09:50 Sodium Hypochlorite, Dakin's 1/2 Strength (0.25%) 473 Ml Topical Soln TP 1 applicatio BID CECE Administration
--- NOTE | 2021-03-06 14:00 | Consultation ---
History of Present Illness Consult date: 03/06/21 Reason for consult: wound care - History of present illness History of present illness: 60 year old male admitted over a month ago with COVID pneumonia. Currently intubated with vent dependence. Surgery is consulted for deterioration of sacral wound. Pt has been seen and evaluated by wound care. Past History Past Medical History: diabetes, hypertension, hyperlipidemia, renal failure, oth er (HIDRADENTIS) Past Surgical History: Other (HIDRADENITIS) Social history: no significant social history Family history: no significant family history Medications and Allergies Allergies Allergy/AdvReac Type Severity Reaction Status Date / Time No Known Allergies Allergy Unverified 03/12/20 13:41 Home Medications Medication Instructions Recorded Confirmed Last Taken Type Insulin NPH/Regular [Novolin 70/30] 18 unit SUB-Q TIDAC #1 vial 03/12/20 03/02/21 Unknown Rx Syringe-Needle,Insulin,0.5 ml 1 box MC TID #1 box 03/12/20 03/02/21 Unknown Rx [Insulin Syringe/Needle 0.5 ML] Active Meds: Active Medications Acetaminophen (Acetaminophen 325 Mg/10.15 Ml Oral Liqd Unit Dose) 650 mg FEEDTUBE Q6H PRN PRN Reason: Pain, Mild (1-3) Last Admin: 02/25/21 13:31 Dose: 650 mg Documented by: Lipase/Protease/Amylase (Lipase 10,500/Protease 25,000/Amylase 43,750 (Units) Dr Claudio) 1 each FEEDTUBE PRN PRN PRN Reason: For Clogged Feeding Tube Dextrose (Dextrose 50% In Water (25gm) 50 Ml Syringe) 50 ml IV Q30MIN PRN; Protocol PRN Reason: Hypoglycemia Fentanyl (Fentanyl 100 Mcg/2 Ml Inj) 50 mcg IV Q10MIN PRN PRN Reason: ANALGESIA Last Admin: 02/25/21 10:25 Dose: 50 mcg Documented by: Heparin Sodium (Porcine) (Heparin 10,000 Units/10 Ml Vial) 2,000 unit IV SAGRARIO PRN PRN Reason: hemodialysis Last Admin: 02/21/21 21:25 Dose: 2,000 unit Documented by: Heparin Sodium (Porcine) (Heparin 5,000 Unit/1 Ml Vial) 5,000 unit SUB-Q Q8HR CECE Last Admin: 03/06/21 05:49 Dose: 5,000 unit Documented by: Fentanyl Citrate (Fentanyl Drip Premix) 2,000 mcg in 100 mls @ 6.124 mls/hr IV TITR CECE; Protocol Last Titration: 03/06/21 08:00 Dose: 1 mcg/kg/hr, 6.124 mls/hr Documented by: Propofol (Diprivan 10 Mg/Ml) 1,000 mg in 100 mls @ 3.674 mls/hr IV TITR CECE; Protocol Last Titration: 02/21/21 08:30 Dose: 0 mcg/kg/min, 0 mls/hr Documented by: Norepinephrine (Levophed Drip 4 Mg/Ns 250 Ml) 4 mg in 250 mls @ 7.5 mls/hr IV TITR CECE; Protocol Last Titration: 02/22/21 18:27 Dose: 0 mcg/min, 0 mls/hr Documented by: Dexmedetomidine HCl 1,000 mcg/ (Sodium Chloride) 260 mls @ 6.368 mls/hr IV TITRATE CECE; Protocol Last Titration: 03/06/21 08:00 Dose: 0.5 mcg/kg/hr, 15.921 mls/hr Documented by: Sodium Chloride (Nacl 0.9%) 100 mls @ 999 mls/hr IV SAGRARIO PRN PRN Reason: Hypotension Lansoprazole (Lansoprazole 30 Mg Solutab) 30 mg FEEDTUBE QDAY [facility] Last Admin: 03/06/21 09:51 Dose: 30 mg Documented by: Neomycin/Polymyxin/Bacitracin (Neomy 3.5 Mg/Bacit 400 Units/Poly B 5000 Units/Gm Oint Packet) 1 applic TP TID [facility] Last Admin: 03/06/21 07:29 Dose: Not Given Documented by: Senna/Docusate Sodium (Sennosides/Docusate Sodium 8.6/50 Mg Tab) 1 tab PO BID [facility] Last Admin: 03/06/21 09:51 Dose: 1 tab Documented by: Simple Syrup (Simple Syrup 15 Ml) 15 ml FEEDTUBE PRN PRN PRN Reason: Hypoglycemia Last Admin: 02/21/21 21:24 Dose: 15 ml Documented by: Simple Syrup (Simple Syrup 15 Ml) 30 ml FEEDTUBE PRN PRN PRN Reason: Hypoglycemia Sodium Bicarbonate (Sodium Bicarbonate 325 Mg Tab) 325 mg FEEDTUBE PRN PRN PRN Reason: For Clogged Feeding Tube Sodium Hypochlorite (Sodium Hypochlorite, Dakin's 1/2 Strength (0.25%) 473 Ml Topical Soln) 1 applic TP BID CECE Last Admin: 03/06/21 09:50 Dose: 1 applicatio Documented by: Review of Systems ROS unobtainable: due to endotracheal tube Exam Vital Signs Temp Pulse Resp BP Pulse Ox 99 F 109 H 47 H 123/67 83 L 01/22/21 22:29 01/22/21 22:29 01/22/21 22:29 01/22/21 22:01/22/21 22:29 - General physical appearance Positive: well developed, no distress, no pain - Respiratory Positive: normal expansion, normal respiratory effort, other (intubated) - Extremities Extremity abnormal: other (bilateral feet boots on) - Abdomen Abdomen: Present: soft. Absent: tender - Integumentary other ([id number] sacral wound with necrotic slough at the base. no purulent drainage with foul odor.) Results - Labs 03/04/21 Unknown 03/05/21 09:00 Abnormal lab results 03/05/21 03/05/21 03/05/21 Range/Units 16:55 23:20 Unknown ABG pH (7.320-7.450) POC ABG pCO2 (32.0-48.0) mmHg POC ABG pO2 (83-108) mmHg ABG Hemoglobin (12.0-17.5) ABG Oxyhemoglobin (94-98) ABG Sodium (136.0-145.0) mmol/L ABG Chloride (98-107) mmol/L ABG Glucose (65-95) mg/dL Carboxyhemoglobin (0.5-1.5) POC Glucose 146 H 144 H (70-105) mg/dL Arterial Blood Glucose (65-95) mg/dL Urine Creatinine 65.9 H (0.1-20.0) mg/dL 03/05/21 03/06/21 03/06/21 Range/Units Unknown 03:23 05:20 ABG pH 7.239 L (7.320-7.450) POC ABG pCO2 67.0 H (32.0-48.0) mmHg POC ABG pO2 76.6 L (83-108) mmHg ABG Hemoglobin 8.0 L (12.0-17.5) ABG Oxyhemoglobin 92.4 L (94-98) ABG Sodium 145.6 H (136.0-145.0) mmol/L ABG Chloride 108.0 H (98-107) mmol/L ABG Glucose 134 H (65-95) mg/dL Carboxyhemoglobin 2.1 H (0.5-1.5) POC Glucose 114 H (70-105) mg/dL Arterial Blood Glucose 134 H (65-95) mg/dL Urine Creatinine 66.1 H (0.1-20.0) mg/dL 03/06/21 Range/Units 11:59 ABG pH (7.320-7.450) POC ABG pCO2 (32.0-48.0) mmHg POC ABG pO2 (83-108) mmHg ABG Hemoglobin (12.0-17.5) ABG Oxyhemoglobin (94-98) ABG Sodium (136.0-145.0) mmol/L ABG Chloride (98-107) mmol/L ABG Glucose (65-95) mg/dL Carboxyhemoglobin (0.5-1.5) POC Glucose 132 H (70-105) mg/dL Arterial Blood Glucose (65-95) mg/dL Urine Creatinine (0.1-20.0) mg/dL Assessment and Plan 60 year old male bedridden male with stage 4 sacral ulcer. Would benefit form debridement. Consent obtained over the phone from sister Monica. Will do at beside. After debridement continue with wound care instructions and off loading regularly. Wound at a poor chance of healing as long as he is bedridden.
--- NOTE | 2021-03-06 14:17 | Procedure Note ---
Date of procedure: 03/06/21 Pre-op diagnosis: sacral ulcer stage 4 Post-op diagnosis: same Procedure: Excisonal debridement of sacral wound Wound measured [id number]. Necrotic fibrinous slough at the surface. Sharp excisional debridement of subcutaneous tissue down to clean fatty sub Q tissue and some muscle. There was mild focal bleeding at the inferior apex of the wound that was controlled with suture ligation using vicryl. The wound was irrigated and then packed with Dakins moistened gauze followed by clean dressing. Pt tolerated the procedure well. Anesthesia: none Surgeon: TIFFANY ORTIZ Estimated blood loss: minimal Pathology: none Condition: stable Disposition: ICU
--- NOTE | 2021-03-06 15:12 | Progress Note ---
Assessment and Plan Assessment and plan: This is a 60-year-old male with diabetes mellitus, hypertension, hyperlipidemia, chronic renal insufficiency who was admitted on 01/23 as a COVID-19 PUI with Sepsis, COVID-19 pneumonia, coag negative staph bacteremia, acute hypoxic respiratory failure, and acute kidney injury. Sepsis COVID-19 pneumonia Coag-neg Staph bacteremia Acute hypoxic respiratory failure Acute kidney injury, HD initiated 02/03 Anemia Diabetes mellitus Hypertension Hyperlipidemia Chronic renal insufficiency Elevated D-dimer Penile ulceration Sacral wound -CCM, nephrology, infectious disease, GI , vascular surgery, surgery, urology, neurology consulted, appreciate recommendations -s/p Antibiotic therapy, remdesivir, Steroid therapy -COVID-19 PCR positive, Pneumonia on CXR -Mechanical ventilation, wean as tolerated -VAP bundle -HD per nephrology, on hold given improvement 03/06 -S/p 5 units PRBC during stay -Trend BMP, CBC, COVID-19 inflammatory markers -Bilateral lower extremity and upper extremity Doppler ultrasound negative for DVT/SVT -SSI and Long-acting insulin -Accu-Cheks every 6 while on tube feedings -Hold home antihypertensive regimen and resume when appropriate -S/p vasopressor support -Blood pressure monitoring per protocol -S/p NaHCO3 gtt -02/17 CT head showed no acute intracranial abnormality, paranasal sinus disease -Bowel regimen -02/24 EEG finding consistent with encephalopathy and/or drug effect, possibility of toxic metabolic etiology cannot be excluded, possibility of structural lesion on the left side cannot be excluded given left being slightly slower than the right. -Neosporin twice daily to penile shaft ulcer -01/23, 02/18, 03/02 COVID-19 PCR positive -Permcath placement pending -03/06 s/p bedside debridement with surgery DVT/GI prophylaxis: SCDs to bilateral lower extremities while in bed, PPI, heparin subq Dispo: ICU The high probability of a clinically significant, sudden or life threatening deterioration of the [multi] system(s) required my full and direct attention, intervention and personal management. The aggregate critical care time was [35] minutes. This time is in addition to time spent performing reported procedures but includes the following: [x] Data Review and interpretation [x] Patient assessment and monitoring of vital signs [x] Documentation [x] Medication orders and management History Interval history: This is a 60-year-old male with diabetes mellitus, hypertension, hyperlipidemia, chronic renal insufficiency presents to the emergency department on 01/23 with shortness of breath, fevers chills, loss of smell and taste and body aches for the past 3 days via EMS. Per EMS patient's oxygen saturation on room air was 50% and after being placed on nonrebreather it increased 75%. Upon arrival to the emergency department patient was being bagged by EMS. In the emergency room patient was intubated due to severe hypoxia, increased work of breathing and lethargy. Patient was sedated on propofol and fentanyl. Patient presented with fever, tachycardia, tachypnea and acute hypoxic respiratory failure with PNA on CXR meeting Sepsis criteria. Lab work in the emergency department revealed hyponatremia, hypokalemia, hypochloremia, elevated CR/BUN and CXR showed bilateral pneumonia. Patient was admitted to the hospital service as a COVID-19 PUI with consults to infectious disease, nephrology and critical care medicine. 01/24/2021: Patient is intubated and sedated, patient is positive for COVID-19 in fection. ID was consulted and put on dexamethasone and remdesivir. Patient has DEISI and nephrology is following. Creatinine stable, patient is urinating. Discussed with nephrology and he is okay with remdesivir. Pulmonary critical care is following for his vent setting. PEEP of 8 and FiO2 of 85%. Patient was alert and off sedatives. 01/25/2021; patient is intubated and on mechanical ventilation. Continue with treatment of Covid. Nephrology and ID is following. Pulmonary is following for vent management 01/26: Remains on mechanical ventilation and [facility] increased his PEEP. [facility] has ordered Precedex for sedation. Possibly need to prone this p.m. No acute events reported overnight. This morning his D-dimer is greater than 10,000 and we have started him on Lovenox 120 mg daily. Nutrition has been consulted for initiation of tube feedings. Patient remains sedated on propofol 40 and fentanyl for the time my examination this morning. 01/27: Continue Lovenox, remdesivir and empiric antibiotics. Patient had a T-max of 101 overnight. The time of examination patient is on CMV 500/18/14/0.61. Kidney function slightly worsened. Sedated on fentanyl ground-level fall and Precedex. Nephrology has increased IV fluids to 100 ml/hr. Continue to trend BMP and CBC. Sedation vacation attempt by RN this AM. 01/28: Patient completed antibiotics today [facility] will paralyze patient and increase sedation. PICC line ordered for possible vasopressor therapy need. Patient's D-dimer remains greater than 10,000 and he still has hyperchloremia. Patient's kidney function has improved today. May need to prone the patient if no improvement in oxygenation is noted in the next 24 hours. The time of my examination patient is sedated with propofol, fentanyl and Precedex and is on assist control 500/18/16/0.80 hypoxic on ABG on 60% FiO2. 01/29: Patient was started on Nimbex yesterday and his ABG this morning showed respiratory acidosis with hypercapnia and his respiratory rate was increased. We will obtain a repeat ABG this afternoon. This morning patient is hypernatremic, hyperkalemic and hyperchloremic. His potassium has been corrected with the management and will obtain repeat BMP tomorrow. His kidney functions have remained stable and we will await nephrology's input. No acute events reported overnight. This morning the time my examination patient sedated with propofol, Precedex and fentanyl and paralyzed with Nimbex. He is on assist control 500/24/16 0.80. 01/30: This morning patient is hypokalemic again and was given Kayexalate. Patient has hypernatremia and hyper chloremia and his renal function is slightly worse after receiving Lasix yesterday. His D-dimer remains greater than 10,000 and he is still on a paralytic. Patient is sedated on Precedex, fentanyl, propofol. Mechanical ventilation settings seven-point /61/28. [facility] has decided to continue paralytics for 48 more hours and will attempt proning the patient. Increased free water flushes 300 cc every 4 hours. Patient states has restarted his antibiotics cefepime and vancomycin and recultured. 01/31/21 Hyperkalemia, Treated 02/01/21 Hyperkalemia, Treated 02/02: Patient's kidney function continues to worsen and a stat BMP this morning shows BUN/creatinine 20/6.1 and he remains hypocalcemic and hypernatremic, hypokalemic and hypochloremic. Patient received 2 g of calcium gluconate and Kayexalate and his repeat potassium was 4.3 this afternoon. He remains antibiotic therapy and steroids. Nephrology has placed the patient on bicarb drip given metabolic acidosis and has decided to hold off hemodialysis till tomorrow.The time my examination patient is sedated on fentanyl, Precedex and on assist control 500/20/12/0.70. s/p paralytic. 02/03: Today patient's ABG shows respiratory acidosis however it is improving, hypernatremia, hyperchloremia, metabolic acidosis on BMP, worsening kidney func tion BUN/creatinine 130/9.2 with hyperphosphatemia. Patient received a Vas-Cath to his right IJ for initiation of dialysis. At the time of my examination patient remains sedated on fentanyl, propofol and Precedex with vasopressor support with Levophed at 2. 02/04: At the time of examination patient was on assist control tidal volume 500, rate 40, PEEP of 12, FiO2 85%. Patient had a T-max of 100.9 and infectious disease has stopped his vancomycin given negative MRSA. This afternoon patient respiked his temperature and was pancultured again. Patient was started on hemodialysis yesterday and will receive HD again today. Patient is sedated on Precedex, propofol, fentanyl and remains on Levophed. He is on assist control tidal volume 500, rate of 30, PEEP of 12, FiO2 of 85%. Patient still has some respiratory acidosis however his hypernatremia and hyperchloremia have improved and his metabolic acidosis has resolved. Patient will receive hemodialysis today 02/05: Patient continues to have low-grade fever temp this morning time examination he was on assist control tidal volume 500, and sedated on propofol/fentanyl/Precedex and is on Levophed. Hemodialysis per nephrology. Antibiotics per ID. Patient's blood culture from 02/04 grew gram-positive cocci in clusters in 1/2 bottles and he was started on vancomycin. 02/06: Patients ABG showed respiratory acidosis and the tracings were changed however a repeat ABG showed showed acidosis.[facility] will start a bicarb drip after giving 2 amps of bicarb push. Yesterday patient blood cultures grew gram- positive cocci and he was started on vancomycin. At the time my examination patient was on assist control tidal volume 550, rate 34, PEEP 16, FiO2 90% and sedated on fentanyl, Precedex, propofol elevated pressure support with Levophed. Bilateral lower extremity Doppler ultrasounds done yesterday showed no evidence of DVT/SVT. 02/07/2021; patient is still on the vent with PEEP of 16 and FiO2 of 90%, sedated with fentanyl Precedex and propofol. Patient still requiring Levophed. Patient was sedated yesterday and was given bicarb push. Blood culture grew gram-positive cocci in clusters and he is on vancomycin, will follow identifi cation. 02/08/2021;patient is still on the vent with PEEP of 16 and FiO2 of 90%, sedated with fentanyl Precedex and propofol. Patient still requiring Levophed. Patient was sedated yesterday and was given bicarb push. Blood culture grew gram- positive cocci in clusters and he is on vancomycin, will follow identification. Patient is currently on dialysis. Patient is anemic transfuse if hemoglobin is below 7. 12: This morning patient has slight hypokalemia, hypochorlemia, hyponatremia and metabolic alkalosis. [facility] will continue bicarb gtt given that the patient does not have HD access at this time. We will replete the potassium and recheck BMP in the AM. We will type and cross in anticipation of PRBC transfusion. This morning he is sedated on Ativan, fentayl, and precedex. Will obtain a triglyceride level today in hopes to resume propofol. Patient is alkalotic and BMP however we will continue with bicarb drip per [facility] given that the patient does not have any access for hemodialysis. Anticipate replacing hemodialysis catheter tomorrow or Tuesday. The time my examination he is on AC TV 550, Rate 34, PeeP 16, FiO2 .65. 02/10: A.m. labs still pending, [facility] plans to replace HD catheter tomorrow as the patient is still febrile however his fever curve is trending down, remains on a bicarb drip and on vancomycin. Today at the time my examination patient was sedated on Precedex, Ativan and fentanyl and he is on assist control tidal 11/04/1951, rate 34, PEEP 16, FiO2 65%. Overnight patient was hypotensive and received 1 dose of midodrine. 02/11: Patient is still having low-grade temperatures that we will obtain a bilateral lower upper extremity venous Doppler ultrasound given that his repeat cultures have been negative so far. Patient received a Vas-Cath today for hemodialysis. The time examination patient is on assist control tidal volume 550, rate of 34, PEEP of 16 and FiO2 of 75%. Patient was hypokalemic and anemic yesterday which were both repleted with potassium and 1 unit PRBC. 02/12: 02/12: Patient had a 12-second run of V. tach today, his potassium and magn esium were low which was repleted. Renal adjusted potassium bath. We will obtain a triglyceride level in hopes to restarting to prevent as needed. This morning at the time my examination patient was sedated on fentanyl, Ativan and Precedex and remained on a bicarb drip. He was on assist control tidal volume 550, rate 34, PEEP 16, FiO2 85%. We will obtain a occult stool given no evident source of bleeding and need for transfusion. Anemia possibly due to hemodialysis. 02/13: Patient's T-max was 100.7, remains on fentanyl, Ativan, Precedex and bicarb drip this morning at some examination on assist control tidal volume 550, rate 34, PEEP 16 and FiO2 85%. On the labs this morning is slightly hypokalemic and remains metabolic alkalotic on BMP. His occult was positive. His Lovenox and consult GI. Patient received hemodialysis today. 02/14: cont PPI, GI recommended to scope now, monitor clinically, tolerating TF, remains intubated. Hb 6.9 today - transfuse another unit. very poor prognosis. 02/15: H&H appears to be stable following 1 unit of transfusion yesterday. Continue to hold heparin and aspirin products. Continue to monitor clinically. Poor prognosis. Wean off from vent as tolerated. 02/16: Infectious disease has signed off, his Ativan drip was discontinued and to prevent drip will be started when patient needs it. T-max 100.6 yesterday afternoon. He received hemodialysis today and at the time my examination was still on mechanical ventilation assist control tidal volume 550, rate 34, PEEP 16 on 70% FiO2. Patient was sedated on fentanyl dexamethasone and Ativan. No acute events reported overnight. 02/17: This morning patient was scheduled to get 2 units PRBC however his repeat H/H after 1 unit PRBC was 7.6/22.8 and the width of the second unit PRBC. This morning patient was sedated on fentanyl, propofol, Precedex and on assist control tolerated by 50, rate 34, PEEP of 16, FiO2 35%. Wound care was consulted today for his upper lip wound. Nephrology continues to withhold dialysis. No acute events reported overnight. Dr. Adkins was unable to co ntact family for updates. 02/18: Family updated by Dr. Adkins and Dr. Reddy. Patient had a hemo dialysis today. The time my examination patient was on assist control tidal volume 550, rate 34, PEEP 16 and FiO2 35%. Overnight patient had a CT head and he was placed on 3% FiO2 and took "a long time to recover" per RN report. 02/19: Patient's D-dimer is trending up therefore he was started on prophylactic anticoagulation, no bowel movement for several days so he was started on mag citrate today. The time examination patient is sedated on Precedex 1.2, fentanyl 3, propofol 20 on assist control tidal volume 550, rate 34, PEEP 16, 80% FiO2 and on his ABG his PaO2 is 106. RT will try to wean as tolerated. Repeat COVID-19 PCR today was positive.Dr. Adkins updated the family today. 02/20: Patient received hemodialysis today. In the time my examination patient was sedated on Precedex, fentanyl, propofol and on assist control tidal line 550, rate 34, PEEP of 16 and 75% FiO2. Patient had a bowel movement yesterday. 02/21 no new concerns at this time afebrile Hospital course remains uncomplicated. 02/22. Hospital course complicated by an episode of ectopy over the p.m. Patient required Levophed for blood pressure control. Remains intubated sedated. Tolerated hemodialysis yesterday. 02/23: At the time my examination patient is on assist control tidal volume 550, rate 34, PEEP 16, FiO2 70% and is not sedated. Patient does not follow commands however his eyes open spontaneously and he does not track/focus. 02/24: Neurology consulted, EEG pending. No acute events reported overnight. Patient remains on hyperventilation totaling 550, rate 34, PEEP of 16 on 70% FiO2. Patient received hemodialysis yesterday. 02/25: EEG from 02/24 is suggestive of encephalopathy (toxic metabolic etiology cannot be excluded). This afternoon his peak pressures and and mean airway pres sure is elevated so we obtained a CXR and ABG. Results were called to Dr. Masters. Patient received 2 mg of Versed was placed back on his sedation with fentanyl and Precedex. 02/26: Patient is on pressure ventilation FiO2 70%, Pressure inspiration 25, rate 34, PEEP 10 and sedated on fentanyl at 2mcgs and Precedex at 0.2. We will obtain a cxr for evaluation. Patient seems to be much more comfortable today. 02/27: CXr unchanged, at the time of my examination patient is on pressure control ventilation FiO2 70%, pressure support 26, rate 34 n.p.o. for 10 and sedated on fentanyl at 2 and Precedex at 0.1. His latest ABG 7.3, CO2 49, PO2 111, base excess 24. Patient is to receive hemodialysis today. No acute events reported overnight. Patient still not following commands. 02/28: Continue mechanical ventilation per pulmonary recommendations. Patient currently in AC mode ventilation rate 34, FiO2 70%, PEEP 15. 02/24 EEG finding consistent with encephalopathy and/or drug effect, possibility of toxic metabolic etiology cannot be excluded, possibility of structural lesion on the left side cannot be excluded given left being slightly slower than the right. Continue hemodialysis per nephrology. Currently with sedation of fentanyl and Precedex. Pulmonary plans for trach when ventilator settings allow. 03/01: Patient remains on mechanical ventilation AC mode, FiO2 70%, PEEP of 10. Hemodialysis initiated on 02/03/2021. Continue per nephrology. Patient will need tracheostomy once ventilator settings allow. Continue supportive care with tube feedings. Aspiration precautions. Patient appears to have penile ulceration and purulence. Consult urology for further evaluation. Prognosis remains guarded. 03/02: Tentative plan to place permacath tomorrow, patient will be n.p.o. after midnight and repeat COVID-19 PCR was ordered. Urology was consulted for a possible penile fistula. Patient received hemodialysis today. Today at the time of examination patient was on pressure control ventilation with a PEEP of 10 and FiO2 of 60 sedated on fentanyl and Precedex. 03/03: Patient noted to be anemic and ordered 1 unit of PRBC to be transfused, [facility] thinks patient has suffered from oxygen toxicity from prolonged time on high levels of oxygen (greater than 60%) for several weeks. The time my examination patient was on volume control ventilation and he remains off sedation. 03/04: Patient H/H today and 7.04/30:24 unit PRBC yesterday. Patient remains on pressure control ventilation with a pressure support of 26, FiO2 55, rate of 24 and PEEP of 10. His sedation was restarted yesterday for increase WOB and tachypnea. Patient is sedated on fentanyl and dexamethasone. We will continue current management and possibly obtain a CT head on Tuesday if no improvement in mental status. 03/05: Infectious disease has stated that the patient is noninfectious as per PermCath procedure. However patient is renal function is improving and nephrology has opted to place PermCath on Tuesday if HD is still indicated. Patient was given mag citrate today for constipation and sodium bicarbonate push. Today surgery was consulted for possible debridement of sacral wound. 03/06: Patient is sedated on fentanyl and dexamethasone on pressure control ventilation FiO2 55%, pressure support 26, rate 40 and PEEP of 10 at the time my examination. And he was switched to assist control by [facility]. Patient continues to have low-grade fevers which may be multifactorial. Given that creatinine clearance was 26 and urine output is improving nephrology has decided to hold HD for now. General surgery has debrided the sacaral wound today. Will attempt to obtain midline or PIV in order to remove CVL BILLIE. Hospitalist Physical - Constitutional Vitals: Temp Pulse Resp BP Pulse Ox 98.3 F 114 H 34 H 134/86 96 03/06/21 12:21 03/06/21 14:30 03/06/21 14:30 03/06/21 14:30 03/06/21 14:30 General appearance: Present: no acute distress, obese, other (on mechanical ventilation) - EENT Eyes: Present: PERRL ENT: poor dentition - Respiratory Respiratory effort: normal Respiratory: bilateral: diminished - Cardiovascular Rhythm: regular Heart Sounds: Present: S1 & S2. Absent: systolic murmur, diastolic murmur - Extremities Extremities: no ischemia, pulses intact, pulses symmetrical, normal temperature, normal color Extremity abnormal: edema Peripheral Pulses: within normal limits - Abdominal General gastrointestinal: soft, non-tender, non-distended, normal bowel sounds - Integumentary Integumentary: Present: warm, dry - Psychiatric Psychiatric: other (sedated) - Neurologic Neurologic: other (sedated, PERRLA, (+) cough/gag, does not follow commands) - Allied Health Allied health notes reviewed: nursing, RT HEART Score - HEART Score Risk factors: 1-2 risk factors Troponin: < normal limit - Critical Actions Critical Actions: 0-3 pts:0.9-1.7%risk of adverse cardiac event.Candidate for discharge Results - Labs CBC & Chem 7: 03/04/21 Unknown 03/05/21 09:00 Labs: Laboratory Last Values WBC 13.9 K/mm3 (4.5-11.0) H 03/04/21 Unknown RBC 2.58 M/mm3 (3.65-5.03) L 03/04/21 Unknown Hgb 7.7 gm/dl (11.8-15.2) L 03/04/21 Unknown Hct 24.0 % (35.5-45.6) L 03/04/21 Unknown MCV 93 fl (84-94) 03/04/21 Unknown MCH 30 pg (28-32) 03/04/21 Unknown MCHC 32 % (32-34) 03/04/21 Unknown RDW 20.3 % (13.2-15.2) H 03/04/21 Unknown Plt Count 386 K/mm3 (140-440) 03/04/21 Unknown Lymph % (Auto) 11.0 % (13.4-35.0) L 02/15/21 05:00 [place] % (Auto) 4.2 % (0.0-7.3) 02/15/21 05:00 Eos % (Auto) 1.2 % (0.0-4.3) 02/15/21 05:00 Baso % (Auto) 0.6 % (0.0-1.8) 02/15/21 05:00 Lymph # (Auto) 1.1 K/mm3 (1.2-5.4) L 02/15/21 05:00 [place]he # (Auto) 0.4 K/mm3 (0.0-0.8) 02/15/21 05:00 Eos # (Auto) 0.1 K/mm3 (0.0-0.4) 02/15/21 05:00 Baso # (Auto) 0.1 K/mm3 (0.0-0.1) 02/15/21 05:00 Add Manual Diff Complete 02/24/21 04:25 Total Counted 100 02/24/21 04:25 Seg Neutrophils % 83.0 % (40.0-70.0) H 02/15/21 05:00 Seg Neuts % (Manual) 82.0 % (40.0-70.0) H 02/24/21 04:25 Band Neutrophils % 2.0 % 02/16/21 Unknown Lymphocytes % (Manual) 3.0 % (13.4-35.0) L 02/24/21 04:25 Reactive Lymphs % (Man) 1.0 % 01/27/21 05:29 Monocytes % (Manual) 11.0 % (0.0-7.3) H 02/24/21 04:25 Eosinophils % (Manual) 1.0 % (0.0-4.3) 02/24/21 04:25 Basophils % (Manual) 1.0 % (0.0-1.8) 02/24/21 04:25 Metamyelocytes % 2.0 % 02/24/21 04:25 Nucleated RBC % Not Reportable 02/24/21 04:25 Seg Neutrophils # 8.6 K/mm3 (1.8-7.7) H 02/15/21 05:00 Seg Neutrophils # Man 9.4 K/mm3 (1.8-7.7) H 02/24/21 04:25 Band Neutrophils # 0.0 K/mm3 02/24/21 04:25 Lymphocytes # (Manual) 0.3 K/mm3 (1.2-5.4) L 02/24/21 04:25 Abs React Lymphs (Man) 0.0 K/mm3 02/24/21 04:25 Monocytes # (Manual) 1.3 K/mm3 (0.0-0.8) H 02/24/21 04:25 Eosinophils # (Manual) 0.1 K/mm3 (0.0-0.4) 02/24/21 04:25 Basophils # (Manual) 0.1 K/mm3 (0.0-0.1) 02/24/21 04:25 Metamyelocytes # 0.2 K/mm3 02/24/21 04:25 Myelocytes # 0.0 K/mm3 02/24/21 04:25 Promyelocytes # 0.0 K/mm3 02/24/21 04:25 Blast Cells # 0.0 K/mm3 02/24/21 04:25 WBC Morphology Not Reportable 02/24/21 04:25 Hypersegmented Neuts Not Reportable 02/24/21 04:25 Hyposegmented Neuts Not Reportable 02/24/21 04:25 Hypogranular Neuts Not Reportable 02/24/21 04:25 Smudge Cells Not Reportable 02/24/21 04:25 Toxic Granulation Not Reportable 02/24/21 04:25 Toxic Vacuolation Not Reportable 02/24/21 04:25 Dohle Bodies Not Reportable 02/24/21 04:25 Pelger-Huet Anomaly Not Reportable 02/24/21 04:25 Fátima Rods Not Reportable 02/24/21 04:25 Platelet Estimate Consistent w auto 02/24/21 04:25 Clumped Platelets Not Reportable 02/24/21 04:25 Plt Clumps, EDTA Not Reportable 02/24/21 04:25 Large Platelets Not Reportable 02/24/21 04:25 Giant Platelets Not Reportable 02/24/21 04:25 Platelet Satelliting Not Reportable 02/24/21 04:25 Plt Morphology Comment Not Reportable 02/24/21 04:25 RBC Morphology Not Reportable 02/24/21 04:25 Dimorphic RBCs Not Reportable 02/24/21 04:25 Polychromasia Few 02/24/21 04:25 Hypochromasia Not Reportable 02/24/21 04:25 Poikilocytosis Not Reportable 02/24/21 04:25 Anisocytosis 1+ 02/24/21 04:25 Microcytosis Not Reportable 02/24/21 04:25 Macrocytosis Not Reportable 02/24/21 04:25 Spherocytes Not Reportable 02/24/21 04:25 Pappenheimer Bodies Not Reportable 02/24/21 04:25 Sickle Cells Not Reportable 02/24/21 04:25 Target Cells Not Reportable 02/24/21 04:25 Tear Drop Cells Not Reportable 02/24/21 04:25 Ovalocytes Not Reportable 02/24/21 04:25 Helmet Cells Not Reportable 02/24/21 04:25 [place] Bodies Not Reportable 02/24/21 04:25 [place] Rings Not Reportable 02/24/21 04:25 [place] Cells Not Reportable 02/24/21 04:25 Bite Cells Not Reportable 02/24/21 04:25 Crenated Cell Not Reportable 02/24/21 04:25 Elliptocytes Not Reportable 02/24/21 04:25 Acanthocytes (Spur) Not Reportable 02/24/21 04:25 Rouleaux Not Reportable 02/24/21 04:25 Hemoglobin C Crystals Not Reportable 02/24/21 04:25 Schistocytes Not Reportable 02/24/21 04:25 Malaria parasites Not Reportable 02/24/21 04:25 [place] Bodies Not Reportable 02/24/21 04:25 Hem Pathologist Commnt No 02/24/21 04:25 PT 14.6 Sec. (12.2-14.9) 03/03/21 Unknown INR 1.15 (0.87-1.13) H 03/03/21 Unknown D-Dimer 6536.84 ng/mlDDU (0-234) H 02/25/21 09:03 ABG pH 7.239 (7.320-7.450) L 03/06/21 03:23 POC ABG pCO2 67.0 mmHg (32.0-48.0) H 03/06/21 03:23 ABG pCO2 62.0 mm Hg 03/04/21 03:15 POC ABG pO2 76.6 mmHg (83-108) L 03/06/21 03:23 ABG pO2 80.9 mm Hg (80.0-90.0) 03/04/21 03:15 POC ABG HCO3 28.0 03/06/21 03:23 ABG HCO3 28.8 mmol/L (20.0-26.0) H 03/04/21 03:15 ABG O2 Saturation 94.4 (0-100) 03/06/21 03:23 ABG O2 Content 9.0 (0.0-44) 03/03/21 03:50 POC ABG Base Excess 0.1 03/06/21 03:23 ABG Base Excess 1.6 mmol/L (-2.0-3.0) 03/04/21 03:15 ABG Hemoglobin 8.0 (12.0-17.5) L 03/06/21 03:23 ABG Oxyhemoglobin 92.4 (94-98) L 03/06/21 03:23 ABG Carboxyhemoglobin 2.0 % (0.0-5.0) 03/04/21 03:15 ABG Methemoglobin 0 (0.0-1.5) 03/06/21 03:23 ABG Sodium 145.6 mmol/L (136.0-145.0) H 03/06/21 03:23 ABG Potassium 4.2 mmol/L (3.40-4.50) 03/06/21 03:23 ABG Chloride 108.0 mmol/L (98-107) H 03/06/21 03:23 ABG Glucose 134 mg/dL (65-95) H 03/06/21 03:23 Oxyhemoglobin 93.4 % (95.0-99.0) L 03/04/21 03:15 Carboxyhemoglobin 2.1 (0.5-1.5) H 03/06/21 03:23 FiO2 55 % 03/03/21 03:50 FiO2 % 55.0 03/06/21 03:23 Sodium 144 mmol/L (137-145) 03/05/21 09:00 Potassium 4.5 mmol/L (3.6-5.0) 03/05/21 09:00 Chloride 104.6 mmol/L (98-107) 03/05/21 09:00 Carbon Dioxide 30 mmol/L (22-30) 03/05/21 09:00 Anion Gap 14 mmol/L 03/05/21 09:00 BUN 84 mg/dL (9-20) H 03/05/21 09:00 Creatinine 2.3 mg/dL (0.8-1.3) H 03/05/21 09:00 Estimated GFR 35 ml/min 03/05/21 09:00 BUN/Creatinine Ratio 37 % 03/05/21 09:00 Glucose 143 mg/dL (75-100) H 03/05/21 09:00 POC Glucose 132 mg/dL (70-105) H 03/06/21 11:59 Hemoglobin A1c 6.3 % (4-6) H 02/02/21 16:00 Lactic Acid 1.90 mmol/L (0.7-2.0) 01/24/21 14:38 Calcium 8.0 mg/dL (8.4-10.2) L 03/05/21 09:00 Phosphorus 7.90 mg/dL (2.5-4.5) H 02/21/21 16:35 Magnesium 2.60 mg/dL (1.7-2.3) H 02/21/21 16:35 Ferritin 867.8 ng/mL (30.0-300.0) H 02/26/21 05:48 Total Bilirubin 1.50 mg/dL (0.1-1.2) H 01/26/21 05:47 AST 37 units/L (5-40) 01/26/21 05:47 ALT 29 units/L (7-56) 01/26/21 05:47 Alkaline Phosphatase 70 units/L (35-129) 01/26/21 05:47 Lactate Dehydrogenase 345 units/L (91-180) H 02/19/21 05:45 C-Reactive Protein 5.90 mg/dL (0.00-1.30) H 02/26/21 05:48 Total Protein 7.2 g/dL (6.3-8.2) 01/26/21 05:47 Albumin 2.2 g/dL (3.9-5) L 01/26/21 05:47 Albumin/Globulin Ratio 0.4 % 01/26/21 05:47 Triglycerides 195 mg/dL (2-149) H 02/19/21 05:45 Procalcitonin 18.94 ng/mL (<0.15) 02/16/21 17:09 Arterial Blood Glucose 134 mg/dL (65-95) H 03/06/21 03:23 Arterial Blood Ionized Calcium 4.8 mg/dL (4.6-5.3) 03/06/21 03:23 Urine Color Nehal (Yellow) 01/22/21 22:39 Urine Turbidity Cloudy (Clear) 01/22/21 22:39 Urine pH 5.0 (5.0-7.0) 01/22/21 22:39 Ur Specific [place] 1.017 (1.003-1.030) 01/22/21 22:39 Urine Protein 100 mg/dl mg/dL (Negative) 01/22/21 22:39 Urine Glucose (UA) Neg mg/dL (Negative) 01/22/21 22:39 Urine Ketones Neg mg/dL (Negative) 01/22/21 22:39 Urine Blood Mod (Negative) 01/22/21 22:39 Urine Nitrite Neg (Negative) 01/22/21 22:39 Urine Bilirubin Neg (Negative) 01/22/21 22:39 Urine Urobilinogen 2.0 mg/dL (<2.0) 01/22/21 22:39 Ur Leukocyte Esterase Mod (Negative) 01/22/21 22:39 Urine WBC (Auto) < 1.0 /HPF (0.0-6.0) 01/22/21 22:39 Urine RBC (Auto) < 1.0 /HPF (0.0-6.0) 01/22/21 22:39 U Epithel Cells (Auto) < 1.0 /HPF (0-13.0) 01/22/21 22:39 Urine Osmolality 416 Mosm/kg 01/30/21 12:15 Urine Total Volume 1800 ml 03/05/21 Unknown Urine Total Volume 1800 ml 03/05/21 Unknown Urine Creatinine 65.9 mg/dL (0.1-20.0) H 03/05/21 Unknown Urine Creatinine 66.1 mg/dL (0.1-20.0) H 03/05/21 Unknown Ur Creatinine 24 Hour 1.2 (0.8-2.8) 03/05/21 Unknown Height (in) 68.0 inches 03/05/21 Unknown Weight (lb) 283.3 lbs 03/05/21 Unknown Creatinine Clearance 26 03/05/21 Unknown Urine Sodium 28 mmol/L 01/22/21 22:39 Nasal Screen MRSA (PCR) Negative (Negative) 02/02/21 13:20 Random Vancomycin 13.7 ug/mL (0-40.0) 02/07/21 10:40 Coronavirus (PCR) Positive (Negative) A 03/02/21 08:35 Hepatitis A IgM Ab Non-reactive (NonReactive) 02/03/21 Unknown Hep Bs Antigen Non-reactive (Negative) 02/03/21 Unknown Hep B Core IgM Ab Non-reactive (NonReactive) 02/03/21 Unknown Hepatitis C Antibody Non-reactive (NonReactive) 02/03/21 Unknown Blood Type B POSITIVE 03/03/21 Unknown Antibody Screen Negative 03/03/21 Unknown Crossmatch See Detail 03/03/21 Unknown Black/IV: Voiding Method Indwelling Catheter Active Medications - Current Medications Current Medications: Generic Name Dose Route Start Last Admin Trade Name Freq PRN Reason Stop Dose Admin Acetaminophen 650 mg 01/24/21 12:58 02/25/21 13:31 Acetaminophen 325 Mg/10.15 Ml Oral Liqd Unit Dose FEEDTUBE 650 mg Q6H PRN Administration Pain, Mild (1-3) Lipase/Protease/Amylase 1 each 01/26/21 14:25 Lipase 10,500/Protease 25,000/Amylase 43,750 (Units) Dr Cap FEEDTUBE PRN PRN For Clogged Feeding Tube Dextrose 50 ml 01/27/21 07:24 Dextrose 50% In Water (25gm) 50 Ml Syringe IV Q30MIN PRN Hypoglycemia Protocol Fentanyl 50 mcg 01/22/21 22:39 02/25/21 10:25 Fentanyl 100 Mcg/2 Ml Inj IV 50 mcg Q10MIN PRN Administration ANALGESIA Heparin Sodium (Porcine) 2,000 unit 02/11/21 09:38 02/21/21 21:25 Heparin 10,000 Units/10 Ml Vial IV 2,000 unit SAGRARIO PRN Administration hemodialysis Heparin Sodium (Porcine) 5,000 unit 02/19/21 14:00 03/06/21 13:58 Heparin 5,000 Unit/1 Ml Vial SUB-Q 5,000 unit Q8HR CECE Administration Fentanyl Citrate 2,000 mcg in 100 mls @ 6.124 mls/hr 01/22/21 23:00 03/06/21 08:00 Fentanyl Drip Premix IV 1 mcg/kg/hr TITR CECE 6.124 mls/hr Titration Protocol 1 MCG/KG/HR Propofol 1,000 mg in 100 mls @ 3.674 mls/hr 01/22/21 23:45 02/21/21 08:30 Diprivan 10 Mg/Ml IV 0 mcg/kg/min TITR CECE 0 mls/hr Titration Protocol 5 MCG/KG/MIN Norepinephrine 4 mg in 250 mls @ 7.5 mls/hr 01/28/21 14:00 02/22/21 18:27 Levophed Drip 4 Mg/Ns 250 Ml IV 0 mcg/min TITR CECE 0 mls/hr Titration Protocol 2 MCG/MIN Dexmedetomidine HCl 1,000 mcg/ 260 mls @ 6.368 mls/hr 01/30/21 20:00 03/06/21 08:00 Sodium Chloride IV 0.5 mcg/kg/hr TITRATE CECE 15.921 mls/hr Titration Protocol 0.2 MCG/KG/HR Sodium Chloride 100 mls @ 999 mls/hr 02/27/21 11:00 Nacl 0.9% IV SAGRARIO PRN Hypotension Lansoprazole 30 mg 02/18/21 10:00 03/06/21 09:51 Lansoprazole 30 Mg Solutab FEEDTUBE 30 mg QDAY CECE Administration Neomycin/Polymyxin/Bacitracin 1 applic 03/02/21 15:00 03/06/21 13:58 Neomy 3.5 Mg/Bacit 400 Units/Poly B 5000 Units/Gm Oint Packet TP Not Given TID CECE Senna/Docusate Sodium 1 tab 02/25/21 10:00 03/06/21 09:51 Sennosides/Docusate Sodium 8.6/50 Mg Tab PO 1 tab BID CECE Administration Simple Syrup 15 ml 01/26/21 14:25 02/21/21 21:24 Simple Syrup 15 Ml FEEDTUBE 15 ml PRN PRN Administration Hypoglycemia Simple Syrup 30 ml 01/26/21 14:25 Simple Syrup 15 Ml FEEDTUBE PRN PRN Hypoglycemia Sodium Bicarbonate 325 mg 01/26/21 14:25 Sodium Bicarbonate 325 Mg Tab FEEDTUBE PRN PRN For Clogged Feeding Tube Sodium Hypochlorite 1 applic 03/05/21 22:00 03/06/21 09:50 Sodium Hypochlorite, Dakin's 1/2 Strength (0.25%) 473 Ml Topical Soln TP 1 applicatio BID CECE Administration Nutrition/Malnutrition Assess - Dietary Evaluation Nutrition/Malnutrition Findings: Nutrition Notes Start: 01/26/21 13:59 Freq: Status: Active Protocol: Document 03/04/21 08:52 AT (Rec: 03/04/21 08:58 AT [id number]) Co-Sign 03/04/21 08:52 Nutrition Notes Initial or Follow up Reassessment Current Diagnosis Acute Kidney Injury,Diabetes, Sepsis,Hypertension, Respiratory Failure, Hyperlipidemia Other Pertinent Diagnosis on HD, COVID-19 (+), bilat pneu Current Diet TF - Nepro at 46 ml/hr Labs/Tests BUN 78 Cr 2.5 BG 131 Pertinent Medications Fentanyl Height 5 ft 8 in Weight 105 kg [place] Body Weight (kg) 70.00 BMI 35.2 Weight change and time frame Wt change noted. Weight Status Obese Subjective/Other Information Follow up for TF tolerance. Visited pt at bedside and observed TF running at goal rate of 46 mL/hr. Pt remains on vent. Per RN, pt is tolerating TF without incident . Percent of energy/protein needs met: 100%/85% Burn Absent Trauma Absent GI Symptoms Constipation Difficulty In Swallowing Skin Integrity/Comment pressure ulcer to lips Current % PO Negligible Minimum of two criteria No Fluid Accumulation Moderate to Severe (severe) #2 Nutrition Diagnosis Increased nutrient needs ( specify in comment below) Diagnosis Progress(for reassessment Continues documentation) #1 Nutrition Diagnosis Inadequate oral intake Diagnosis Progress(for reassessment Continues documentation) Is patient on ventilator? Yes Is Patient Ambulatory and/or Out of Bed No REE-(Brule-St. Jeor-confined to bed) 2194.092 Kcal/Kg value to use for calculation 17 Approximate Energy Requirements Using 1785 kcal/Kg Calculation Used for Recommendations Kcal/kg Additional Notes PRO needs: >105g (>1.2 g/kg AdBW 87.5 kg) Fluid needs: 500 + total output or per MD Nutrition Intervention Change Diet Order: Continue TF Nutrition Support: Nepro at 46 ml/hr with a free water flush of 200 ml q4h. Kcal 1,987 Protein (gm) 89 Fluid (mL) 803 Goal #1 TF tolerance Goal #2 TF to meet at least 75% energy and pro needs Anticipated Discharge Needs: unable to determine at this time Follow-Up By: 03/09/21 Additional Comments F/U for stable TF
[2021-03-06 18:01] LABS: ABG Base Excess 5.5 mmol/L (-2.0-3.0); ABG HCO3 33.7 mmol/L (20.0-26.0); ABG Methemoglobin 0.7 % (0.0-1.5); ABG Oxygen Saturation 95.1 % (95.0-99.0); ABG PCO2 72.4 mm Hg; ABG PH 7.286 pH Units (7.350-7.450); ABG PO2 78.1 mm Hg (80.0-90.0)
[2021-03-06 18:19] LABS: Calcium 8.2 mg/dL (8.4-10.2)
[2021-03-07] MEDS: fentaNYL DRIP Premix 2,000 MCG/100 ML BAG IV SCH ×3 (01:18→19:40)
[2021-03-07] MEDS: dexmedeTOMIDine 1,000 MCG in SODIUM CHLORIDE 0.9% 250ML 250 ML IV SCH ×3 (02:25→21:30)
[2021-03-07] MEDS: HEPARIN 5,000 UNIT/1 ML VIAL SUB-Q SCH ×3 (06:20→22:16)
[2021-03-07] MEDS: NEOMY 3.5 MG/BACIT 400 UNITS/POLY B 5000 UNITS/GM OINT PACKET TP SCH ×3 (09:02→21:00)
[2021-03-07 09:21] LABS: Basophils # (Auto) 0.1 K/mm3 (0.0-0.1); Basophils % (Auto) 0.8 % (0.0-1.8); Eosinophils # (Auto) 0.3 K/mm3 (0.0-0.4); Eosinophils % (Auto) 2.2 % (0.0-4.3); Hematocrit 23.4 % (35.5-45.6); Hemoglobin 7.2 gm/dl (11.8-15.2); Lymphocytes # (Auto) 0.9 K/mm3 (1.2-5.4); Lymphocytes % (Auto) 7.3 % (13.4-35.0); Mean Corpuscular HGB Conc 31 % (32-34); Mean Corpuscular Volume 96 fl (84-94); Monocytes # (Auto) 0.8 K/mm3 (0.0-0.8); Monocytes % (Auto) 6.9 % (0.0-7.3); Platelet Count 308 K/mm3 (140-440); Red Blood Count 2.45 M/mm3 (3.65-5.03); Red Cell Distribution Width 19.7 % (13.2-15.2)
[2021-03-07] MEDS: SODIUM HYPOCHLORITE, DAKIN'S 1/2 STRENGTH (0.25%) 473 ML TOPICAL SOLN TP SCH ×2 (10:00→22:16)
--- NOTE | 2021-03-07 10:45 | Event Note ---
Date: 03/07/21 Reviewed nephrology notes. Kidney function has improved. Permcath canceled. Restored diet to prevent discontinuation on tuesday.
--- NOTE | 2021-03-07 10:49 | Progress Note ---
Assessment and Plan Acute Hypoxic respiratory failure COVID-19 PNA Severe sepsis with septic shock Acute kidney injury secondary to ATN Hyperkalemia Hypernatremia DM2 on insulin Plan: Acute Hypoxic respiratory failure COVID-19 PNA Severe sepsis with septic shock Acute kidney injury secondary to ATN Hyperkalemia Hypernatremia DM2 on insulin Anemia Plan: Creatinine trending down creatinine clearance was 26 and UOP is improving please remove vascath. he may still need HD, if so will request permcath Initiated on HD on 02/03/21 Strict I&O's monitoring Renally dose medications Assess dialysis needs daily Monitor for renal recovery Subjective Date of service: 03/07/21 Principal diagnosis: DEISI Interval history: Intubated. Objective - Exam Narrative Exam: GE:Intubated HEENT:Limited due to Covid Neck:Limited due to Covid Chest:On Vent CVS:Limited due to Covid Abd:Limited due to Covid Neuro:Sedated - Vital Signs Vital signs: Vital Signs - 12hr 03/06/21 03/06/21 03/07/21 23:00 23:30 00:00 Temperature 98.8 F Pulse Rate 99 H 95 H 92 H Pulse Rate [ 115 H From Monitor] Respiratory 29 H 35 H 34 H Rate Blood Pressure 118/76 96/57 97/61 O2 Sat by Pulse 93 98 Oximetry 03/07/21 03/07/21 03/07/21 00:17 00:30 01:00 Temperature Pulse Rate 89 89 Pulse Rate [ From Monitor] Respiratory 34 H 33 H Rate Blood Pressure 96/63 106/63 96/60 O2 Sat by Pulse 91 96 Oximetry 03/07/21 03/07/21 03/07/21 01:30 02:00 02:30 Temperature Pulse Rate 90 85 88 Pulse Rate [ From Monitor] Respiratory 33 H 28 H 33 H Rate Blood Pressure 94/63 102/62 89/58 O2 Sat by Pulse 89 97 Oximetry 03/07/21 03/07/21 03/07/21 03:00 03:30 03:42 Temperature 98.9 F Pulse Rate 86 83 Pulse Rate [ From Monitor] Respiratory 33 H 31 H Rate Blood Pressure 92/60 93/59 O2 Sat by Pulse 92 93 Oximetry 03/07/21 03/07/21 03/07/21 04:00 04:30 04:50 Temperature Pulse Rate 86 93 H 91 H Pulse Rate [ 115 H From Monitor] Respiratory 30 H 21 Rate Blood Pressure 83/56 87/60 83/56 O2 Sat by Pulse 98 97 96 Oximetry 03/07/21 03/07/21 03/07/21 05:00 05:30 06:01 Temperature Pulse Rate 97 H 98 H 97 H Pulse Rate [ From Monitor] Respiratory 26 H 26 H 27 H Rate Blood Pressure 116/65 120/71 120/71 O2 Sat by Pulse 96 93 Oximetry 03/07/21 03/07/21 03/07/21 06:30 07:00 08:00 Temperature Pulse Rate 91 H 92 H 91 H Pulse Rate [ From Monitor] Respiratory 26 H 27 H Rate Blood Pressure 128/56 109/60 107/57 O2 Sat by Pulse 97 95 96 Oximetry - Lab 03/07/21 08:01 03/07/21 03:30 Most recent lab results ABG pH 7.361 (7.320-7.450) 03/07/21 03:33 ABG pCO2 72.4 mm Hg 03/06/21 17:45 ABG pO2 78.1 mm Hg (80.0-90.0) L 03/06/21 17:45 ABG HCO3 33.7 mmol/L (20.0-26.0) H 03/06/21 17:45 ABG O2 Saturation 95.1 (0-100) 03/07/21 03:33 Calcium 8.0 mg/dL (8.4-10.2) L 03/07/21 03:30 Phosphorus 7.90 mg/dL (2.5-4.5) H 02/21/21 16:35 Magnesium 2.60 mg/dL (1.7-2.3) H 02/21/21 16:35 Urine Creatinine 65.9 mg/dL (0.1-20.0) H 03/05/21 Unknown Urine Creatinine 66.1 mg/dL (0.1-20.0) H 03/05/21 Unknown Urine Sodium 28 mmol/L 01/22/21 22:39 Medications & Allergies - Medications Allergies/Adverse Reactions: Allergies No Known Allergies Allergy (Unverified 03/12/20 13:41) Home Medications: Home Medications Medication Instructions Recorded Confirmed Last Taken Type Insulin NPH/Regular [Novolin 70/30] 18 unit SUB-Q TIDAC #1 vial 03/12/20 03/02/21 Unknown Rx Syringe-Needle,Insulin,0.5 ml 1 box MC TID #1 box 03/12/20 03/02/21 Unknown Rx [Insulin Syringe/Needle 0.5 ML] Active Medications: Generic Name Dose Route Start Last Admin Trade Name Freq PRN Reason Stop Dose Admin Acetaminophen 650 mg 01/24/21 12:58 02/25/21 13:31 Acetaminophen 325 Mg/10.15 Ml Oral Liqd Unit Dose FEEDTUBE 650 mg Q6H PRN Administration Pain, Mild (1-3) Lipase/Protease/Amylase 1 each 01/26/21 14:25 Lipase 10,500/Protease 25,000/Amylase 43,750 (Units) Dr Cap FEEDTUBE PRN PRN For Clogged Feeding Tube Dextrose 50 ml 01/27/21 07:24 Dextrose 50% In Water (25gm) 50 Ml Syringe IV Q30MIN PRN Hypoglycemia Protocol Fentanyl 50 mcg 01/22/21 22:39 02/25/21 10:25 Fentanyl 100 Mcg/2 Ml Inj IV 50 mcg Q10MIN PRN Administration ANALGESIA Heparin Sodium (Porcine) 2,000 unit 02/11/21 09:38 02/21/21 21:25 Heparin 10,000 Units/10 Ml Vial IV 2,000 unit SAGRARIO PRN Administration hemodialysis Heparin Sodium (Porcine) 5,000 unit 02/19/21 14:00 03/07/21 06:20 Heparin 5,000 Unit/1 Ml Vial SUB-Q 5,000 unit Q8HR CECE Administration Fentanyl Citrate 2,000 mcg in 100 mls @ 6.124 mls/hr 01/22/21 23:00 03/07/21 06:19 Fentanyl Drip Premix IV 1 mcg/kg/hr TITR CECE 6.124 mls/hr Administration Protocol 1 MCG/KG/HR Propofol 1,000 mg in 100 mls @ 3.674 mls/hr 01/22/21 23:45 02/21/21 08:30 Diprivan 10 Mg/Ml IV 0 mcg/kg/min TITR CECE 0 mls/hr Titration Protocol 5 MCG/KG/MIN Norepinephrine 4 mg in 250 mls @ 7.5 mls/hr 01/28/21 14:00 02/22/21 18:27 Levophed Drip 4 Mg/Ns 250 Ml IV 0 mcg/min TITR CECE 0 mls/hr Titration Protocol 2 MCG/MIN Dexmedetomidine HCl 1,000 mcg/ 260 mls @ 6.368 mls/hr 01/30/21 20:00 03/07/21 03:45 Sodium Chloride IV 1 mcg/kg/hr TITRATE CECE 31.842 mls/hr Titration Protocol 0.2 MCG/KG/HR Sodium Chloride 100 mls @ 999 mls/hr 02/27/21 11:00 Nacl 0.9% IV SAGRARIO PRN Hypotension Lansoprazole 30 mg 02/18/21 10:00 03/06/21 09:51 Lansoprazole 30 Mg Solutab FEEDTUBE 30 mg QDAY CECE Administration Neomycin/Polymyxin/Bacitracin 1 applic 03/02/21 15:00 03/07/21 09:02 Neomy 3.5 Mg/Bacit 400 Units/Poly B 5000 Units/Gm Oint Packet TP Not Given TID CECE Senna/Docusate Sodium 1 tab 02/25/21 10:00 03/06/21 21:03 Sennosides/Docusate Sodium 8.6/50 Mg Tab PO Not Given BID CECE Simple Syrup 15 ml 01/26/21 14:25 02/21/21 21:24 Simple Syrup 15 Ml FEEDTUBE 15 ml PRN PRN Administration Hypoglycemia Simple Syrup 30 ml 01/26/21 14:25 Simple Syrup 15 Ml FEEDTUBE PRN PRN Hypoglycemia Sodium Bicarbonate 325 mg 01/26/21 14:25 Sodium Bicarbonate 325 Mg Tab FEEDTUBE PRN PRN For Clogged Feeding Tube Sodium Hypochlorite 1 applic 03/05/21 22:00 03/06/21 21:03 Sodium Hypochlorite, Dakin's 1/2 Strength (0.25%) 473 Ml Topical Soln TP 1 applicatio BID CECE Administration
--- NOTE | 2021-03-07 11:18 | Progress Note ---
Assessment and Plan Cultures: Blood culture 02/08/2021 no growth today SARS CoV2 PCR positive 01/22/2021 respiratory culture: Usual respiratory dillon Blood Culture 01/30/2021 no growth today Urine culture 01/30/2021 no growth today Sputum culture 01/30/2021 usual respiratory dillon Blood culture 02/04/2021 coag negative staph 2 of 4 Urine culture 02/04/2021 no growth Sputum culture 02/04/2021 Maegan albicans 03/02/2021 COVID-19 PCR: Positive Assessment: 60 year old male with history of morbid obesity admitted on 01/22/2021 secondary to 3-day history of worsening shortness of breath associated with fever, chills, loss of smell and taste: #Severe sepsis with septic shock: resolved, off pressors. #Coag-neg Staph bacteremia: Completed treatment 7 days of vancomycin. #Critical COVID-19 pneumonia: Patient remains intubated. Completed remdesivir, steroids, empiric abx course. #Acute respiratory failure: Remains on the vent. #Acute renal failure: nephrology following, was on intermittent hemodialysis, creatinine gradually improving. Recommendations: -non-infectious COVID-19 (see previous notes for discussion) -intermittent low grade fevers, better, multifactorial (prolonged vent related sinusitis, atelectasis, etc). Monitor off antimicrobials. ID will sign off. Please call with questions. Melida Byrne MD, FACP [facility] ([facility]) O: [phone] F: [phone] Subjective Date of service: 03/07/21 Principal diagnosis: DEISI Interval history: Afebrile. Remains on the vent. Objective - Exam Narrative Exam: Physical Exam Constitutional: unresponsive, intubated, on the vent Head, Ears, Nose: Normocephalic, atraumatic. External ears, nose normal Eyes: Conjunctivae/corneas clear. No icterus. No ptosis. Neck: intubated Oral: intubated Cardiovascular: S1, S2 + Respiratory: AE fair bilaterally and equal GI: Soft, bowel sounds + Musculoskeletal: No pedal edema, no cyanosis. Skin: No rash or abscess Hem/Lymphatic: No palpable cervical or supraclavicular nodes. No lymphangitis Psych: no agitation Neurological: Opens eyes but does not follow any commands, intubated, on the vent, exam limited - Constitutional Vitals: Vital Signs Temp Pulse Resp BP Pulse Ox 98.9 F 91 H 27 H 107/57 96 03/07/21 03:42 03/07/21 08:00 03/07/21 07:00 03/07/21 08:00 03/07/21 08:00 Temperature -Last 24 Hours Temperature 98.9 F Temperature 98.8 F Temperature 98.7 F Temperature 99.1 F Temperature 98.3 F - Labs CBC & Chem 7: 03/07/21 08:01 03/07/21 03:30 Labs: Abnormal lab results 03/06/21 03/06/21 03/06/21 Range/Units 11:59 17:35 17:45 WBC (4.5-11.0) K/mm3 RBC (3.65-5.03) M/mm3 Hgb (11.8-15.2) gm/dl Hct (35.5-45.6) % MCV (84-94) fl MCHC (32-34) % RDW (13.2-15.2) % Lymph % (Auto) (13.4-35.0) % Lymph # (Auto) (1.2-5.4) K/mm3 Seg Neutrophils % (40.0-70.0) % Seg Neutrophils # (1.8-7.7) K/mm3 ABG pH 7.286 L (7.350-7.450) pH Units POC ABG pCO2 (32.0-48.0) mmHg POC ABG pO2 (83-108) mmHg ABG pO2 78.1 L (80.0-90.0) mm Hg ABG HCO3 33.7 H (20.0-26.0) mmol/L ABG Base Excess 5.5 H (-2.0-3.0) mmol/L ABG Hemoglobin 10.3 L (14.0-18.0) gm/dl ABG Oxyhemoglobin (94-98) ABG Sodium (136.0-145.0) mmol/L ABG Chloride (98-107) mmol/L ABG Glucose (65-95) mg/dL Oxyhemoglobin 92.3 L (95.0-99.0) % Carboxyhemoglobin (0.5-1.5) Sodium 148 H (137-145) mmol/L Chloride 107.1 H (98-107) mmol/L Carbon Dioxide 33 H (22-30) mmol/L BUN 91 H (9-20) mg/dL Creatinine 2.1 H (0.8-1.3) mg/dL Glucose 149 H (75-100) mg/dL POC Glucose 132 H (70-105) mg/dL Calcium 8.2 L (8.4-10.2) mg/dL Arterial Blood Glucose (65-95) mg/dL 03/06/21 03/06/21 03/07/21 Range/Units 18:01 23:44 03:30 WBC (4.5-11.0) K/mm3 RBC (3.65-5.03) M/mm3 Hgb (11.8-15.2) gm/dl Hct (35.5-45.6) % MCV (84-94) fl MCHC (32-34) % RDW (13.2-15.2) % Lymph % (Auto) (13.4-35.0) % Lymph # (Auto) (1.2-5.4) K/mm3 Seg Neutrophils % (40.0-70.0) % Seg Neutrophils # (1.8-7.7) K/mm3 ABG pH (7.350-7.450) pH Units POC ABG pCO2 (32.0-48.0) mmHg POC ABG pO2 (83-108) mmHg ABG pO2 (80.0-90.0) mm Hg ABG HCO3 (20.0-26.0) mmol/L ABG Base Excess (-2.0-3.0) mmol/L ABG Hemoglobin (14.0-18.0) gm/dl ABG Oxyhemoglobin (94-98) ABG Sodium (136.0-145.0) mmol/L ABG Chloride (98-107) mmol/L ABG Glucose (65-95) mg/dL Oxyhemoglobin (95.0-99.0) % Carboxyhemoglobin (0.5-1.5) Sodium 147 H (137-145) mmol/L Chloride 107.4 H (98-107) mmol/L Carbon Dioxide (22-30) mmol/L BUN 90 H (9-20) mg/dL Creatinine 2.0 H (0.8-1.3) mg/dL Glucose 158 H (75-100) mg/dL POC Glucose 132 H 144 H (70-105) mg/dL Calcium 8.0 L (8.4-10.2) mg/dL Arterial Blood Glucose (65-95) mg/dL 03/07/21 03/07/21 03/07/21 Range/Units 03:33 05:11 08:01 WBC 11.8 H (4.5-11.0) K/mm3 RBC 2.45 L (3.65-5.03) M/mm3 Hgb 7.2 L (11.8-15.2) gm/dl Hct 23.4 L (35.5-45.6) % MCV 96 H (84-94) fl MCHC 31 L (32-34) % RDW 19.7 H (13.2-15.2) % Lymph % (Auto) 7.3 L (13.4-35.0) % Lymph # (Auto) 0.9 L (1.2-5.4) K/mm3 Seg Neutrophils % 82.8 H (40.0-70.0) % Seg Neutrophils # 9.8 H (1.8-7.7) K/mm3 ABG pH (7.350-7.450) pH Units POC ABG pCO2 60.0 H (32.0-48.0) mmHg POC ABG pO2 76.2 L (83-108) mmHg ABG pO2 (80.0-90.0) mm Hg ABG HCO3 (20.0-26.0) mmol/L ABG Base Excess (-2.0-3.0) mmol/L ABG Hemoglobin 7.7 L (14.0-18.0) gm/dl ABG Oxyhemoglobin 93.2 L (94-98) ABG Sodium 148.6 H (136.0-145.0) mmol/L ABG Chloride 112.0 H (98-107) mmol/L ABG Glucose 173 H (65-95) mg/dL Oxyhemoglobin (95.0-99.0) % Carboxyhemoglobin 1.7 H (0.5-1.5) Sodium (137-145) mmol/L Chloride (98-107) mmol/L Carbon Dioxide (22-30) mmol/L BUN (9-20) mg/dL Creatinine (0.8-1.3) mg/dL Glucose (75-100) mg/dL POC Glucose 144 H (70-105) mg/dL Calcium (8.4-10.2) mg/dL Arterial Blood Glucose 173 H (65-95) mg/dL
--- NOTE | 2021-03-07 12:06 | Progress Note ---
Assessment and Plan 60 y/o male with ARDS secondary most likely to COVID 19 pneumonia. 03/07/21: Will keep HD catheter as IV for now. There could be some small clot in the left IJ but patient appears to be asymptomatic at present. Monitor fever curve. Wean FiO2 as tolerated. Poor prognosis. 03/06/21: Will change patient back to PRVC. TV of 500, RR of 22, FiO2 of 55% and PEEP of 14. Repeat ABG in one hour after changes. Will speak with family about what the next steps could look like if patient able to obtain trach. 03/05/21: Increase RR to 40 as patient is on Assist Control/PC. This was changed back on 02/25. Will speak with RT as to why. Will also give 1 bottle of Mag Citrate today. Guarded prognosis. 03/04/21: Wean FiO2 for sats >88%. Will call family on tomorrow to give further updates and prep them for the possibility of the patient having to come home, maybe even on the vent. 03/03/21: Continue to wean FiO2 as tolerated. Would wean this first before weaning PEEP any further. Sedation only as needed but if placed back on samson nuous sedation, needs to have a holiday (break) every day. HD per renal. Transfusing 1 unit of PRBC's tomorrow. Unfortunately, mental status is going to be a large barrier for this patient. He likely has suffered some oxygen toxicity from prolonged time on high levels of oxygen (greater 60%) for several weeks. Will attempt to have a family meeting regarding further care. Patient is not funded, will need HD shelter and likely will require trach for further weaning. Ultimately, if patient is able to leave the hospital, his only option would be to go home unless family could fund a facility on their own. Guarded prognosis remains. 02/23/21: Despite oxygen numbers looking better, now overall concern shifts somewhat towards mental state. Will continue to monitor for the next several days. However he has been on large amounts of oxygen therapy for a long time and could have some damage to his brain from this. Plan is to update the family tomorrow on current clinical state. His prognosis has been poor and now with mental state prognosis is worsening. HD per renal. Continue to wean FiO2 for sats >88% 02/22/21: Overall clinical state continues to waxes and wanes. Back up to 80%. Will call family tomorrow to update. Had HD last night, will likely have HD again on Tuesday. Very very guarded prognosis. Will send Triglyceride level anyway given recent change. 02/21/21: Continue to wean FiO2 for sats >88%. Down to 70 now and tolerating. Diprovan is off, nursing working to wean others as well. Can hold on triglycerides now that diprovan is off. Guarded prognosis. 02/20/21: HD today, goal is 3 liters. Continue sedation, did have to increase Diprovan but this is ok. Will need to check levels soon. BM complete. Continue prophylactic anticoagulation. Guarded prognosis. 02/19/21: HD per renal, likely tomorrow. Continue sedation. Has not had a BM so will give full dose of mag citrate today. STarted prophylactic anticoagulation. Wean FiO2 as tolerated. Will call family tomorrow. 02/18/21: HD per renal. continue sedation to help with oxygenation. Overall prognosis remains very guarded to poor. [facility] has been speaking with family so will defer to them. Currently patient is not a candidate for trach given his oxygen and peep requirements. 02/17/21: Fine with cutting back on HD as not really helped with oxygenation. Continue to wean as tolerated for sats >88% and PaO2 >55. Sedation to achieve negative rass scoring. very very guarded to poor prognosis. 02/16/21: HD now. Wean FiO2 for sats> 88%. Agree with stopping ativan and holding on starting diprovan to see if the patient truly needs it. pH holding off bicarb drip goal is >7.2. Very very guarded to poor prognosis. 02/13/21: HD again now. Replace electrolytes per renal. Continue abx therapy per ID. Will get RT to wean FiO2 as not done on yesterday. Will restart diprovan post HD and stop ativan. Check Levels (Triglycerides on Tue or Tuesday). Can stop bicarb drip however must make sure that ABG is checked daily to make sure that pH is good. Very very guarded prognosis. 02/12/21: HD again today. Had a 12 second run of VTACH today as well. Stable. K is low, checking mag levels. Will alert Renal so they can adjust bath as needed. Post HD will start to wean FiO2 again. Unable to prone as patient does not tolerate. Repeat blood cultures negative and first set only showing Coag Negative Staph. Prognosis still remains very very guarded to poor. Will co nsider restarting Diprovan tomorrow. Patient now intubated for 20 days now but not candidate for trach yet given elevated PEEP and FiO2 levels but did discuss on rounds. 02/11/21: Vascath placed today for HD. Orders already in. Wean FiO2 for sats >88%. Abx per ID. Repeat cultures so far negative. Given persistent fevers, will check upper ext dopplers. Prognosis still remains guarded. 02/10/21: Triglycerides improved but current sedation is adequate so will hold on stopping ativan to add propofol back. Awaiting Labs from this morning. Plan to replace HD catheter tomorrow morning as early as possible. Fever curve is trending down. Continue bicarb drip for now. Prognosis remains guarded. WIll speak with family tomorrow to update. 02/09/21: Repeat Triglycerides today. Follow up repeat blood cultures. Given continued fever will hold on replacing vascath today. If fever free the next 24 hours, can place in the morning or Tuesday morning. Will likely need blood with next HD session. Continue bicarb drip to help manage respiratory as well as metabolic acidosis. Wean FiO2 for sats >88% and PaO2 >55. Overall prognosis remains guarded to poor. 02/08/21: Picc out today. Will repeat culture if patient spikes again today. Plan to replace HD catheter either late tomorrow or Tuesday morning. Continue current level of sedation. Abx therapy per ID. Wean FiO2 as tolerated, doubt will be able to do much until we can resume HD. Guarded prognosis. Replaced potassium. Will need to check in the morning. Will repeat K later this afternoon. 02/07/21: Biggest issue now is that patient's numbers are better with HD but now with bacteremia, concern for line infection. ID is correct in requesting line holiday. Has a picc and an Right IJ Dialysis catheter with 3 ports. Currently getting HD today. Have not seen renal yet. Will pull right IJ line post HD and plan to replace it Tuesday evening or Tuesday. Continue bicarb drip for now and will keep picc as patient has been requiring levophed. If able to be weaned off levophed, will remove picc either tomorrow or Tuesday. Continue Ativan, Precedex and Fent drips, repeat Triglycerides on Tuesday. Very very guarded prognosis. Will remove Black today as well. 02/06/21: Will add bicarb drip at 125/hr. Giving 2 amps of NaHCO3 push now. Will repeat ABG this afternoon, may just ask for Art Line if possible. HD today per renal and I spoke with them about the bicarb drip. Long discussion with Sister, Significant and other and another family member on the phone on yesterday. I tried my best to explain the severity of the clinical state but not sure if they fully understood. The patient is very very ill and history suggests that his outcome will be poor (intubated with covid and renal failure on dialysis). This was expressed with the family. Will continue all supportive measures. Checking triglyceride levels today. 02/05/21: WIll increase PEEP to 16. Can increase pressors if needed for BP control during HD. Follow up cultures. If negative will scan legs and arms again for VTE. Repeat ABG at 1400 today. Will speak with sister and Girlfriend on phone today. 02/04/21: HD again today per renal notes. Likely will need daily HD. New fevers. Will draw blood and urine cultures if able to still make urine.. Repeat CXR. May need to check dopplers if all of those studies are negative. Wean FIO2 as tolerated. Unable to tolerate proning. Guarded to poor prognosis. 02/03/21: HD today per renal. Wean FiO2 as tolerated. No further proning as patient cannot tolerate it, however with volume removal, may consider in the future. Use pressors to keep MAPs 65 and greater for HD purporses so volume can be removed. (IJ was wide open (filled with blood)) with patient sitting up at 45 degrees. Guarded prognosis. 02/02/21: After renal speaks with family, will place vascath today. Agree with bicarb drip but will order some pushes now to help with pH. Overall prognosis is very very guarded to poor now that patient is COVID positive and requiring renal replacement therapy. Mortality is very high in these patients. Continue steroid therapy. Unable to tolerate proning. 01/30/21: Will plan for proning later today. Goal will be at least 12hrs but long is okay. Speaking with pharmacy to see if we can get paralytic for a longer period of time. Regardless will prone. Continue heavy sedation. BP stable. Continue steroids. Very very guarded prognosis. 01/29/21: will increase tidal volume and/or increase respiratory rate. Repeat ABG this afternoon. Continue paralytic and adequate sedation. Continue steroid and remdesivir, follow up any renal recs. Prognosis remains guarded. Wean Fio2 for sats >88% 01/28/21: Increased PEEP to 16. Will paralyze patient today and increase sedation. Ordering picc line for possible vasopressor therapy needs. Continue BID steroids. Renal function is slightly better today with fluids but could be making oxygenation worse. Not able to diurese. Still making urine. Continue Remdesivir. Watch for fever curve. If not improvement in the next 24 hours with paralyzing, will prone tomorrow morning. 01/27/21: Continue PEEP at 14. No weaning until FiO2 is at or below 40-45%. Continue anticoagulation. Getting Remdesivir now. Continue BID steroids. Renal has increased the fluids. Monitor urine output and renal function. Overall prognosis is very very guarded, especially if renal status worsens. 01/26/21: Increase PEEP to 14. Will add Precedex therapy. If patient does not respond to increases in PEEP may need to prone. Will place patient on lovenox and will feed patient. Remdesivir coming. Continue BID steroids. Prognosis is guarded. 01/25/21: Hold on proning today. Continue BID steroids. ABG this AM was adequate. Pending abg tomorrow, may increase PEEP if not able to wean FiO2 any further. Per charting Remdesivir to arrive tomorrow. Guarded prognosis. 01/24/21: Continue BID steroids. No abg done this am but able to wean FiO2. Will obtain ABG in the am. Hold on proning for right now. Renal following, would like to diurese but they are given fluids for adriana. Agree with ID assessment and note. Guarded prognosis. 1. Increase steroids to BID given size 2. Check with ID to see if he is a candidate for remdesivir or any other experiemental therapy 3. Hold on proning for right now 4. Renal consulted and giving IVF's currently Guarded prognosis. CCT 31 minutes. Subjective Date of service: 03/07/21 Principal diagnosis: ADRIANA Interval history: No acute events. No HD since urine out put improved. Objective Vital Signs - 12hr 03/07/21 03/07/21 03/07/21 00:17 00:30 01:00 Temperature Pulse Rate 89 89 Pulse Rate [ From Monitor] Respiratory 34 H 33 H Rate Blood Pressure 96/63 106/63 96/60 O2 Sat by Pulse 91 96 Oximetry 03/07/21 03/07/21 03/07/21 01:30 02:00 02:30 Temperature Pulse Rate 90 85 88 Pulse Rate [ From Monitor] Respiratory 33 H 28 H 33 H Rate Blood Pressure 94/63 102/62 89/58 O2 Sat by Pulse 89 97 Oximetry 03/07/21 03/07/21 03/07/21 03:00 03:30 03:42 Temperature 98.9 F Pulse Rate 86 83 Pulse Rate [ From Monitor] Respiratory 33 H 31 H Rate Blood Pressure 92/60 93/59 O2 Sat by Pulse 92 93 Oximetry 03/07/21 03/07/21 03/07/21 04:00 04:30 04:50 Temperature Pulse Rate 86 93 H 91 H Pulse Rate [ 115 H From Monitor] Respiratory 30 H 21 Rate Blood Pressure 83/56 87/60 83/56 O2 Sat by Pulse 98 97 96 Oximetry 03/07/21 03/07/21 03/07/21 05:00 05:30 06:01 Temperature Pulse Rate 97 H 98 H 97 H Pulse Rate [ From Monitor] Respiratory 26 H 26 H 27 H Rate Blood Pressure 116/65 120/71 120/71 O2 Sat by Pulse 96 93 Oximetry 03/07/21 03/07/21 03/07/21 06:30 07:00 08:00 Temperature Pulse Rate 91 H 92 H 91 H Pulse Rate [ From Monitor] Respiratory 26 H 27 H Rate Blood Pressure 128/56 109/60 107/57 O2 Sat by Pulse 97 95 96 Oximetry Constitutional: other (sedated) Eyes: non-icteric ENT: other (orally intubated, critically ill) Neck: supple Effort: mildly labored (tachypneic) Ascultation: Bilateral: clear, other (coarse BS bilaterally) Percussion: Bilateral: not dull Cardiovascular: regular rate and rhythm (no mrg) Gastrointestinal: normoactive bowel sounds Integumentary: normal Extremities: no cyanosis, no edema, pink and warm Neurologic: unable to assess Psychiatric: other (unable to assess) CBC and BMP: 03/07/21 08:01 03/07/21 03:30 ABG, PT/INR, D-dimer: ABG ABG pH 7.361 (7.320-7.450) 03/07/21 03:33 POC ABG pCO2 60.0 mmHg (32.0-48.0) H 03/07/21 03:33 ABG pCO2 72.4 mm Hg 03/06/21 17:45 POC ABG pO2 76.2 mmHg (83-108) L 03/07/21 03:33 ABG pO2 78.1 mm Hg (80.0-90.0) L 03/06/21 17:45 POC ABG HCO3 33.2 03/07/21 03:33 ABG O2 Saturation 95.1 (0-100) 03/07/21 03:33 PT/INR, D-dimer PT 14.6 Sec. (12.2-14.9) 03/03/21 Unknown INR 1.15 (0.87-1.13) H 03/03/21 Unknown D-Dimer 6536.84 ng/mlDDU (0-234) H 02/25/21 09:03 Abnormal lab findings: Abnormal Labs 01/22/21 01/22/21 01/22/21 22:39 22:57 22:57 WBC RBC Hgb Hct MCV MCH MCHC RDW Plt Count Lymph % (Auto) 6.6 L Lymph # (Auto) 0.5 L Seg Neutrophils % 87.6 H Seg Neuts % (Manual) Lymphocytes % (Manual) Monocytes % (Manual) Nucleated RBC % Seg Neutrophils # Seg Neutrophils # Man Lymphocytes # (Manual) Monocytes # (Manual) Eosinophils # (Manual) INR D-Dimer ABG pH POC ABG pCO2 POC ABG pO2 ABG pO2 ABG HCO3 ABG O2 Saturation ABG Base Excess ABG Hemoglobin ABG Oxyhemoglobin ABG Sodium ABG Potassium ABG Chloride ABG Glucose Oxyhemoglobin Carboxyhemoglobin Sodium 129 L Potassium 3.4 L Chloride 90.4 L Carbon Dioxide BUN 34 H Creatinine 1.5 H Glucose 146 H POC Glucose Hemoglobin A1c Lactic Acid Calcium 7.8 L Phosphorus Magnesium Ferritin Total Bilirubin AST 75 H ALT 57 H Lactate Dehydrogenase C-Reactive Protein Albumin 2.9 L Triglycerides Arterial Blood Glucose Arterial Blood Ionized Calcium Urine Creatinine 301.2 H Coronavirus (PCR) Crossmatch 01/22/21 01/22/21 01/22/21 22:57 22:57 22:57 WBC RBC Hgb Hct MCV MCH MCHC RDW Plt Count Lymph % (Auto) Lymph # (Auto) Seg Neutrophils % Seg Neuts % (Manual) Lymphocytes % (Manual) Monocytes % (Manual) Nucleated RBC % Seg Neutrophils # Seg Neutrophils # Man Lymphocytes # (Manual) Monocytes # (Manual) Eosinophils # (Manual) INR D-Dimer 1173.89 H ABG pH POC ABG pCO2 POC ABG pO2 ABG pO2 ABG HCO3 ABG O2 Saturation ABG Base Excess ABG Hemoglobin ABG Oxyhemoglobin ABG Sodium ABG Potassium ABG Chloride ABG Glucose Oxyhemoglobin Carboxyhemoglobin Sodium Potassium Chloride Carbon Dioxide BUN Creatinine Glucose 149 H POC Glucose Hemoglobin A1c Lactic Acid 2.10 H* Calcium Phosphorus Magnesium Ferritin Total Bilirubin AST ALT Lactate Dehydrogenase 685 H C-Reactive Protein 30.40 H Albumin Triglycerides Arterial Blood Glucose Arterial Blood Ionized Calcium Urine Creatinine Coronavirus (PCR) Crossmatch 01/22/21 01/23/21 01/23/21 22:57 08:41 10:01 WBC RBC Hgb Hct MCV MCH MCHC RDW Plt Count Lymph % (Auto) Lymph # (Auto) Seg Neutrophils % Seg Neuts % (Manual) Lymphocytes % (Manual) Monocytes % (Manual) Nucleated RBC % Seg Neutrophils # Seg Neutrophils # Man Lymphocytes # (Manual) Monocytes # (Manual) Eosinophils # (Manual) INR D-Dimer ABG pH POC ABG pCO2 POC ABG pO2 ABG pO2 ABG HCO3 ABG O2 Saturation ABG Base Excess ABG Hemoglobin ABG Oxyhemoglobin ABG Sodium ABG Potassium ABG Chloride ABG Glucose Oxyhemoglobin Carboxyhemoglobin Sodium 131 L Potassium Chloride 88.7 L Carbon Dioxide 18 L BUN 36 H Creatinine 1.6 H Glucose 147 H POC Glucose Hemoglobin A1c Lactic Acid Calcium 7.5 L Phosphorus Magnesium Ferritin 1207.0 H Total Bilirubin AST ALT Lactate Dehydrogenase C-Reactive Protein Albumin Triglycerides Arterial Blood Glucose Arterial Blood Ionized Calcium Urine Creatinine Coronavirus (PCR) Positive A Crossmatch 01/23/21 01/23/21 01/24/21 20:49 Unknown 00:10 WBC RBC Hgb Hct MCV MCH MCHC RDW Plt Count Lymph % (Auto) Lymph # (Auto) Seg Neutrophils % Seg Neuts % (Manual) Lymphocytes % (Manual) Monocytes % (Manual) Nucleated RBC % Seg Neutrophils # Seg Neutrophils # Man Lymphocytes # (Manual) Monocytes # (Manual) Eosinophils # (Manual) INR D-Dimer ABG pH POC ABG pCO2 POC ABG pO2 ABG pO2 165.4 H ABG HCO3 ABG O2 Saturation ABG Base Excess -2.5 L ABG Hemoglobin ABG Oxyhemoglobin ABG Sodium ABG Potassium ABG Chloride ABG Glucose Oxyhemoglobin Carboxyhemoglobin Sodium 130 L Potassium Chloride 91.0 L Carbon Dioxide 20 L BUN 52 H Creatinine 3.8 H D Glucose 150 H POC Glucose 125 H Hemoglobin A1c Lactic Acid Calcium 8.0 L Phosphorus Magnesium Ferritin Total Bilirubin AST 42 H ALT Lactate Dehydrogenase C-Reactive Protein Albumin 2.4 L Triglycerides Arterial Blood Glucose Arterial Blood Ionized Calcium Urine Creatinine Coronavirus (PCR) Crossmatch 01/24/21 01/24/21 01/24/21 05:05 05:05 05:05 WBC 14.0 H RBC Hgb Hct MCV 95 H MCH 33 H MCHC RDW Plt Count Lymph % (Auto) Lymph # (Auto) Seg Neutrophils % Seg Neuts % (Manual) 91.0 H Lymphocytes % (Manual) 4.0 L Monocytes % (Manual) Nucleated RBC % Seg Neutrophils # Seg Neutrophils # Man 12.7 H Lymphocytes # (Manual) 0.6 L Monocytes # (Manual) Eosinophils # (Manual) INR D-Dimer 6159.48 H ABG pH POC ABG pCO2 POC ABG pO2 ABG pO2 ABG HCO3 ABG O2 Saturation ABG Base Excess ABG Hemoglobin ABG Oxyhemoglobin ABG Sodium ABG Potassium ABG Chloride ABG Glucose Oxyhemoglobin Carboxyhemoglobin Sodium Potassium Chloride Carbon Dioxide BUN Creatinine Glucose POC Glucose Hemoglobin A1c Lactic Acid Calcium Phosphorus Magnesium Ferritin 1178.0 H Total Bilirubin AST ALT Lactate Dehydrogenase C-Reactive Protein Albumin Triglycerides Arterial Blood Glucose Arterial Blood Ionized Calcium Urine Creatinine Coronavirus (PCR) Crossmatch 01/24/21 01/24/21 01/24/21 05:05 05:05 05:05 WBC RBC Hgb Hct MCV MCH MCHC RDW Plt Count Lymph % (Auto) Lymph # (Auto) Seg Neutrophils % Seg Neuts % (Manual) Lymphocytes % (Manual) Monocytes % (Manual) Nucleated RBC % Seg Neutrophils # Seg Neutrophils # Man Lymphocytes # (Manual) Monocytes # (Manual) Eosinophils # (Manual) INR D-Dimer ABG pH POC ABG pCO2 POC ABG pO2 ABG pO2 ABG HCO3 ABG O2 Saturation ABG Base Excess ABG Hemoglobin ABG Oxyhemoglobin ABG Sodium ABG Potassium ABG Chloride ABG Glucose Oxyhemoglobin Carboxyhemoglobin Sodium 132 L Potassium Chloride 93.1 L Carbon Dioxide 21 L BUN 57 H Creatinine 3.7 H Glucose 133 H POC Glucose Hemoglobin A1c Lactic Acid 2.20 H* Calcium 7.7 L Phosphorus Magnesium Ferritin Total Bilirubin AST ALT Lactate Dehydrogenase 658 H C-Reactive Protein 33.20 H Albumin 2.4 L Triglycerides Arterial Blood Glucose Arterial Blood Ionized Calcium Urine Creatinine Coronavirus (PCR) Crossmatch 01/24/21 01/24/21 01/24/21 05:34 06:00 17:35 WBC RBC Hgb Hct MCV MCH MCHC RDW Plt Count Lymph % (Auto) Lymph # (Auto) Seg Neutrophils % Seg Neuts % (Manual) Lymphocytes % (Manual) Monocytes % (Manual) Nucleated RBC % Seg Neutrophils # Seg Neutrophils # Man Lymphocytes # (Manual) Monocytes # (Manual) Eosinophils # (Manual) INR D-Dimer ABG pH POC ABG pCO2 POC ABG pO2 ABG pO2 ABG HCO3 ABG O2 Saturation ABG Base Excess ABG Hemoglobin ABG Oxyhemoglobin ABG Sodium ABG Potassium ABG Chloride ABG Glucose Oxyhemoglobin Carboxyhemoglobin Sodium Potassium Chloride Carbon Dioxide BUN Creatinine Glucose POC Glucose 136 H 137 H Hemoglobin A1c Lactic Acid Calcium Phosphorus Magnesium 2.80 H Ferritin Total Bilirubin AST ALT Lactate Dehydrogenase C-Reactive Protein Albumin Triglycerides Arterial Blood Glucose Arterial Blood Ionized Calcium Urine Creatinine Coronavirus (PCR) Crossmatch 01/25/21 01/25/21 01/25/21 04:15 05:40 05:40 WBC RBC Hgb Hct MCV 95 H MCH 33 H MCHC 35 H RDW Plt Count Lymph % (Auto) Lymph # (Auto) Seg Neutrophils % Seg Neuts % (Manual) 95.0 H Lymphocytes % (Manual) 3.0 L Monocytes % (Manual) Nucleated RBC % Seg Neutrophils # Seg Neutrophils # Man 7.8 H Lymphocytes # (Manual) 0.2 L Monocytes # (Manual) Eosinophils # (Manual) INR D-Dimer ABG pH POC ABG pCO2 POC ABG pO2 63.2 L ABG pO2 ABG HCO3 ABG O2 Saturation ABG Base Excess ABG Hemoglobin ABG Oxyhemoglobin 89.6 L ABG Sodium ABG Potassium ABG Chloride ABG Glucose 165 H Oxyhemoglobin Carboxyhemoglobin 0.3 L Sodium Potassium Chloride Carbon Dioxide BUN 67 H Creatinine 3.4 H Glucose 153 H POC Glucose Hemoglobin A1c Lactic Acid Calcium 7.5 L Phosphorus Magnesium Ferritin Total Bilirubin 1.40 H AST 62 H ALT Lactate Dehydrogenase C-Reactive Protein Albumin 2.6 L Triglycerides Arterial Blood Glucose 165 H Arterial Blood Ionized Calcium 4.3 L Urine Creatinine Coronavirus (PCR) Crossmatch 01/25/21 01/25/21 01/25/21 05:59 12:00 17:17 WBC RBC Hgb Hct MCV MCH MCHC RDW Plt Count Lymph % (Auto) Lymph # (Auto) Seg Neutrophils % Seg Neuts % (Manual) Lymphocytes % (Manual) Monocytes % (Manual) Nucleated RBC % Seg Neutrophils # Seg Neutrophils # Man Lymphocytes # (Manual) Monocytes # (Manual) Eosinophils # (Manual) INR D-Dimer ABG pH POC ABG pCO2 POC ABG pO2 ABG pO2 ABG HCO3 ABG O2 Saturation ABG Base Excess ABG Hemoglobin ABG Oxyhemoglobin ABG Sodium ABG Potassium ABG Chloride ABG Glucose Oxyhemoglobin Carboxyhemoglobin Sodium Potassium Chloride Carbon Dioxide BUN Creatinine Glucose POC Glucose 140 H 143 H 149 H Hemoglobin A1c Lactic Acid Calcium Phosphorus Magnesium Ferritin Total Bilirubin AST ALT Lactate Dehydrogenase C-Reactive Protein Albumin Triglycerides Arterial Blood Glucose Arterial Blood Ionized Calcium Urine Creatinine Coronavirus (PCR) Crossmatch 01/25/21 01/26/21 01/26/21 23:41 03:43 05:46 WBC RBC Hgb Hct MCV MCH MCHC RDW Plt Count Lymph % (Auto) Lymph # (Auto) Seg Neutrophils % Seg Neuts % (Manual) Lymphocytes % (Manual) Monocytes % (Manual) Nucleated RBC % Seg Neutrophils # Seg Neutrophils # Man Lymphocytes # (Manual) Monocytes # (Manual) Eosinophils # (Manual) INR D-Dimer ABG pH POC ABG pCO2 POC ABG pO2 70.0 L ABG pO2 ABG HCO3 ABG O2 Saturation ABG Base Excess ABG Hemoglobin ABG Oxyhemoglobin 91.9 L ABG Sodium ABG Potassium ABG Chloride 109.0 H ABG Glucose 165 H Oxyhemoglobin Carboxyhemoglobin Sodium Potassium Chloride Carbon Dioxide BUN Creatinine Glucose POC Glucose 132 H 161 H Hemoglobin A1c Lactic Acid Calcium Phosphorus Magnesium Ferritin Total Bilirubin AST ALT Lactate Dehydrogenase C-Reactive Protein Albumin Triglycerides Arterial Blood Glucose 165 H Arterial Blood Ionized Calcium 4.5 L Urine Creatinine Coronavirus (PCR) Crossmatch 01/26/21 01/26/21 01/26/21 05:47 05:47 05:47 WBC RBC Hgb Hct 35.3 L MCV 96 H MCH 33 H MCHC RDW Plt Count Lymph % (Auto) Lymph # (Auto) Seg Neutrophils % Seg Neuts % (Manual) 96.0 H Lymphocytes % (Manual) 2.0 L Monocytes % (Manual) Nucleated RBC % Seg Neutrophils # Seg Neutrophils # Man Lymphocytes # (Manual) 0.1 L Monocytes # (Manual) Eosinophils # (Manual) INR D-Dimer > 05578 H ABG pH POC ABG pCO2 POC ABG pO2 ABG pO2 ABG HCO3 ABG O2 Saturation ABG Base Excess ABG Hemoglobin ABG Oxyhemoglobin ABG Sodium ABG Potassium ABG Chloride ABG Glucose Oxyhemoglobin Carboxyhemoglobin Sodium Potassium Chloride Carbon Dioxide BUN 57 H Creatinine 2.2 H Glucose 185 H POC Glucose Hemoglobin A1c Lactic Acid Calcium 8.1 L Phosphorus Magnesium Ferritin Total Bilirubin AST ALT Lactate Dehydrogenase C-Reactive Protein Albumin Triglycerides Arterial Blood Glucose Arterial Blood Ionized Calcium Urine Creatinine Coronavirus (PCR) Crossmatch 01/26/21 01/26/21 01/26/21 05:47 05:47 05:47 WBC RBC Hgb Hct MCV MCH MCHC RDW Plt Count Lymph % (Auto) Lymph # (Auto) Seg Neutrophils % Seg Neuts % (Manual) Lymphocytes % (Manual) Monocytes % (Manual) Nucleated RBC % Seg Neutrophils # Seg Neutrophils # Man Lymphocytes # (Manual) Monocytes # (Manual) Eosinophils # (Manual) INR D-Dimer ABG pH POC ABG pCO2 POC ABG pO2 ABG pO2 ABG HCO3 ABG O2 Saturation ABG Base Excess ABG Hemoglobin ABG Oxyhemoglobin ABG Sodium ABG Potassium ABG Chloride ABG Glucose Oxyhemoglobin Carboxyhemoglobin Sodium Potassium Chloride 107.1 H Carbon Dioxide BUN 56 H Creatinine 2.2 H Glucose 188 H POC Glucose Hemoglobin A1c Lactic Acid Calcium 8.0 L Phosphorus Magnesium Ferritin 1178.0 H Total Bilirubin 1.50 H AST ALT Lactate Dehydrogenase 588 H C-Reactive Protein 40.10 H Albumin 2.2 L Triglycerides Arterial Blood Glucose Arterial Blood Ionized Calcium Urine Creatinine Coronavirus (PCR) Crossmatch 01/26/21 01/26/2121 11:34 18:17 23:20 WBC RBC Hgb Hct MCV MCH MCHC RDW Plt Count Lymph % (Auto) Lymph # (Auto) Seg Neutrophils % Seg Neuts % (Manual) Lymphocytes % (Manual) Monocytes % (Manual) Nucleated RBC % Seg Neutrophils # Seg Neutrophils # Man Lymphocytes # (Manual) Monocytes # (Manual) Eosinophils # (Manual) INR D-Dimer ABG pH POC ABG pCO2 POC ABG pO2 ABG pO2 ABG HCO3 ABG O2 Saturation ABG Base Excess ABG Hemoglobin ABG Oxyhemoglobin ABG Sodium ABG Potassium ABG Chloride ABG Glucose Oxyhemoglobin Carboxyhemoglobin Sodium Potassium Chloride Carbon Dioxide BUN Creatinine Glucose POC Glucose 129 H 205 H 155 H Hemoglobin A1c Lactic Acid Calcium Phosphorus Magnesium Ferritin Total Bilirubin AST ALT Lactate Dehydrogenase C-Reactive Protein Albumin Triglycerides Arterial Blood Glucose Arterial Blood Ionized Calcium Urine Creatinine Coronavirus (PCR) Crossmatch 01/27/21 01/27/21 01/27/21 02:45 05:29 05:29 WBC RBC 3.58 L Hgb 11.7 L Hct 34.9 L MCV 97 H MCH 33 H MCHC RDW Plt Count Lymph % (Auto) Lymph # (Auto) Seg Neutrophils % Seg Neuts % (Manual) 88.0 H Lymphocytes % (Manual) 7.0 L Monocytes % (Manual) Nucleated RBC % Seg Neutrophils # Seg Neutrophils # Man Lymphocytes # (Manual) 0.5 L Monocytes # (Manual) Eosinophils # (Manual) INR D-Dimer ABG pH 7.319 L POC ABG pCO2 50.7 H POC ABG pO2 63.0 L ABG pO2 ABG HCO3 ABG O2 Saturation ABG Base Excess ABG Hemoglobin ABG Oxyhemoglobin ABG Sodium 145.2 H ABG Potassium 5.1 H ABG Chloride 114.0 H ABG Glucose 178 H Oxyhemoglobin Carboxyhemoglobin Sodium Potassium Chloride Carbon Dioxide BUN Creatinine Glucose POC Glucose Hemoglobin A1c Lactic Acid Calcium Phosphorus Magnesium 4.00 H Ferritin Total Bilirubin AST ALT Lactate Dehydrogenase C-Reactive Protein Albumin Triglycerides Arterial Blood Glucose 178 H Arterial Blood Ionized Calcium Urine Creatinine Coronavirus (PCR) Crossmatch 01/27/21 01/27/21 01/27/21 05:29 05:29 05:31 WBC RBC Hgb Hct MCV MCH MCHC RDW Plt Count Lymph % (Auto) Lymph # (Auto) Seg Neutrophils % Seg Neuts % (Manual) Lymphocytes % (Manual) Monocytes % (Manual) Nucleated RBC % Seg Neutrophils # Seg Neutrophils # Man Lymphocytes # (Manual) Monocytes # (Manual) Eosinophils # (Manual) INR D-Dimer ABG pH POC ABG pCO2 POC ABG pO2 ABG pO2 ABG HCO3 ABG O2 Saturation ABG Base Excess ABG Hemoglobin ABG Oxyhemoglobin ABG Sodium ABG Potassium ABG Chloride ABG Glucose Oxyhemoglobin Carboxyhemoglobin Sodium Potassium 5.2 H Chloride 109.6 H Carbon Dioxide BUN 67 H Creatinine 2.8 H Glucose 195 H POC Glucose 176 H Hemoglobin A1c Lactic Acid Calcium 7.9 L Phosphorus Magnesium Ferritin Total Bilirubin AST ALT Lactate Dehydrogenase C-Reactive Protein Albumin Triglycerides 160 H Arterial Blood Glucose Arterial Blood Ionized Calcium Urine Creatinine Coronavirus (PCR) Crossmatch 01/27/21 01/27/21 01/27/21 11:27 18:08 23:30 WBC RBC Hgb Hct MCV MCH MCHC RDW Plt Count Lymph % (Auto) Lymph # (Auto) Seg Neutrophils % Seg Neuts % (Manual) Lymphocytes % (Manual) Monocytes % (Manual) Nucleated RBC % Seg Neutrophils # Seg Neutrophils # Man Lymphocytes # (Manual) Monocytes # (Manual) Eosinophils # (Manual) INR D-Dimer ABG pH POC ABG pCO2 POC ABG pO2 ABG pO2 ABG HCO3 ABG O2 Saturation ABG Base Excess ABG Hemoglobin ABG Oxyhemoglobin ABG Sodium ABG Potassium ABG Chloride ABG Glucose Oxyhemoglobin Carboxyhemoglobin Sodium Potassium Chloride Carbon Dioxide BUN Creatinine Glucose POC Glucose 189 H 212 H 175 H Hemoglobin A1c Lactic Acid Calcium Phosphorus Magnesium Ferritin Total Bilirubin AST ALT Lactate Dehydrogenase C-Reactive Protein Albumin Triglycerides Arterial Blood Glucose Arterial Blood Ionized Calcium Urine Creatinine Coronavirus (PCR) Crossmatch 01/28/21 01/28/21 01/28/21 03:58 04:00 04:00 WBC RBC Hgb Hct MCV MCH MCHC RDW Plt Count Lymph % (Auto) Lymph # (Auto) Seg Neutrophils % Seg Neuts % (Manual) Lymphocytes % (Manual) Monocytes % (Manual) Nucleated RBC % Seg Neutrophils # Seg Neutrophils # Man Lymphocytes # (Manual) Monocytes # (Manual) Eosinophils # (Manual) INR D-Dimer > 36385 H ABG pH POC ABG pCO2 POC ABG pO2 52.9 L ABG pO2 ABG HCO3 ABG O2 Saturation ABG Base Excess ABG Hemoglobin ABG Oxyhemoglobin 84.1 L ABG Sodium 148.9 H ABG Potassium ABG Chloride 117.0 H ABG Glucose 194 H Oxyhemoglobin Carboxyhemoglobin Sodium Potassium Chloride Carbon Dioxide BUN Creatinine Glucose POC Glucose Hemoglobin A1c Lactic Acid Calcium Phosphorus Magnesium Ferritin Total Bilirubin AST ALT Lactate Dehydrogenase 679 H C-Reactive Protein 17.10 H Albumin Triglycerides Arterial Blood Glucose 194 H Arterial Blood Ionized Calcium Urine Creatinine Coronavirus (PCR) Crossmatch 01/28/21 01/28/21 01/28/21 04:00 05:00 06:00 WBC RBC 3.59 L Hgb 11.6 L Hct 34.8 L MCV 97 H MCH MCHC RDW Plt Count Lymph % (Auto) Lymph # (Auto) Seg Neutrophils % Seg Neuts % (Manual) 96.0 H Lymphocytes % (Manual) 3.0 L Monocytes % (Manual) Nucleated RBC % Seg Neutrophils # Seg Neutrophils # Man Lymphocytes # (Manual) 0.2 L Monocytes # (Manual) Eosinophils # (Manual) INR D-Dimer ABG pH POC ABG pCO2 POC ABG pO2 ABG pO2 ABG HCO3 ABG O2 Saturation ABG Base Excess ABG Hemoglobin ABG Oxyhemoglobin ABG Sodium ABG Potassium ABG Chloride ABG Glucose Oxyhemoglobin Carboxyhemoglobin Sodium Potassium Chloride Carbon Dioxide BUN Creatinine Glucose POC Glucose 159 H Hemoglobin A1c Lactic Acid Calcium Phosphorus Magnesium Ferritin 798.0 H Total Bilirubin AST ALT Lactate Dehydrogenase C-Reactive Protein Albumin Triglycerides Arterial Blood Glucose Arterial Blood Ionized Calcium Urine Creatinine Coronavirus (PCR) Crossmatch 01/28/21 01/28/21 01/28/21 06:00 06:00 08:12 WBC RBC Hgb Hct MCV MCH MCHC RDW Plt Count Lymph % (Auto) Lymph # (Auto) Seg Neutrophils % Seg Neuts % (Manual) Lymphocytes % (Manual) Monocytes % (Manual) Nucleated RBC % Seg Neutrophils # Seg Neutrophils # Man Lymphocytes # (Manual) Monocytes # (Manual) Eosinophils # (Manual) INR D-Dimer ABG pH POC ABG pCO2 POC ABG pO2 ABG pO2 ABG HCO3 ABG O2 Saturation ABG Base Excess ABG Hemoglobin ABG Oxyhemoglobin ABG Sodium ABG Potassium ABG Chloride ABG Glucose Oxyhemoglobin Carboxyhemoglobin Sodium Potassium Chloride 111.9 H Carbon Dioxide BUN 59 H Creatinine 2.2 H Glucose 189 H POC Glucose 181 H Hemoglobin A1c Lactic Acid Calcium 8.1 L Phosphorus Magnesium 3.20 H Ferritin Total Bilirubin AST ALT Lactate Dehydrogenase C-Reactive Protein Albumin Triglycerides Arterial Blood Glucose Arterial Blood Ionized Calcium Urine Creatinine Coronavirus (PCR) Crossmatch 01/28/21 01/28/21 01/28/21 12:03 16:43 23:51 WBC RBC Hgb Hct MCV MCH MCHC RDW Plt Count Lymph % (Auto) Lymph # (Auto) Seg Neutrophils % Seg Neuts % (Manual) Lymphocytes % (Manual) Monocytes % (Manual) Nucleated RBC % Seg Neutrophils # Seg Neutrophils # Man Lymphocytes # (Manual) Monocytes # (Manual) Eosinophils # (Manual) INR D-Dimer ABG pH POC ABG pCO2 POC ABG pO2 ABG pO2 ABG HCO3 ABG O2 Saturation ABG Base Excess ABG Hemoglobin ABG Oxyhemoglobin ABG Sodium ABG Potassium ABG Chloride ABG Glucose Oxyhemoglobin Carboxyhemoglobin Sodium Potassium Chloride Carbon Dioxide BUN Creatinine Glucose POC Glucose 164 H 198 H 196 H Hemoglobin A1c Lactic Acid Calcium Phosphorus Magnesium Ferritin Total Bilirubin AST ALT Lactate Dehydrogenase C-Reactive Protein Albumin Triglycerides Arterial Blood Glucose Arterial Blood Ionized Calcium Urine Creatinine Coronavirus (PCR) Crossmatch 01/29/21 01/29/21 01/29/21 05:00 05:23 06:00 WBC RBC Hgb Hct MCV MCH MCHC RDW Plt Count Lymph % (Auto) Lymph # (Auto) Seg Neutrophils % Seg Neuts % (Manual) Lymphocytes % (Manual) Monocytes % (Manual) Nucleated RBC % Seg Neutrophils # Seg Neutrophils # Man Lymphocytes # (Manual) Monocytes # (Manual) Eosinophils # (Manual) INR D-Dimer ABG pH 7.119 L POC ABG pCO2 87.1 H POC ABG pO2 ABG pO2 ABG HCO3 ABG O2 Saturation ABG Base Excess ABG Hemoglobin ABG Oxyhemoglobin ABG Sodium 152.5 H ABG Potassium 5.7 H ABG Chloride 120.0 H ABG Glucose 217 H Oxyhemoglobin Carboxyhemoglobin Sodium 151 H Potassium 5.9 H D Chloride 117.8 H Carbon Dioxide BUN 54 H Creatinine 2.2 H Glucose 208 H POC Glucose 180 H Hemoglobin A1c Lactic Acid Calcium 7.9 L Phosphorus Magnesium Ferritin Total Bilirubin AST ALT Lactate Dehydrogenase C-Reactive Protein Albumin Triglycerides Arterial Blood Glucose 217 H Arterial Blood Ionized Calcium Urine Creatinine Coronavirus (PCR) Crossmatch 01/29/21 01/29/21 01/29/21 12:29 17:28 18:05 WBC RBC Hgb Hct MCV MCH MCHC RDW Plt Count Lymph % (Auto) Lymph # (Auto) Seg Neutrophils % Seg Neuts % (Manual) Lymphocytes % (Manual) Monocytes % (Manual) Nucleated RBC % Seg Neutrophils # Seg Neutrophils # Man Lymphocytes # (Manual) Monocytes # (Manual) Eosinophils # (Manual) INR D-Dimer ABG pH POC ABG pCO2 POC ABG pO2 ABG pO2 ABG HCO3 ABG O2 Saturation ABG Base Excess ABG Hemoglobin ABG Oxyhemoglobin ABG Sodium ABG Potassium ABG Chloride ABG Glucose Oxyhemoglobin Carboxyhemoglobin Sodium 151 H Potassium 5.5 H Chloride 118.2 H Carbon Dioxide BUN 52 H Creatinine 2.2 H Glucose 224 H POC Glucose 181 H 203 H Hemoglobin A1c Lactic Acid Calcium 8.0 L Phosphorus Magnesium Ferritin Total Bilirubin AST ALT Lactate Dehydrogenase C-Reactive Protein Albumin Triglycerides Arterial Blood Glucose Arterial Blood Ionized Calcium Urine Creatinine Coronavirus (PCR) Crossmatch 01/29/21 01/29/21 01/29/21 18:13 23:34 Unknown WBC RBC Hgb Hct MCV 101 H MCH MCHC RDW 15.7 H Plt Count Lymph % (Auto) Lymph # (Auto) Seg Neutrophils % Seg Neuts % (Manual) 95.0 H Lymphocytes % (Manual) 3.0 L Monocytes % (Manual) Nucleated RBC % Seg Neutrophils # Seg Neutrophils # Man 8.0 H Lymphocytes # (Manual) 0.3 L Monocytes # (Manual) Eosinophils # (Manual) INR D-Dimer ABG pH 7.223 L POC ABG pCO2 64.8 H POC ABG pO2 63.6 L ABG pO2 ABG HCO3 ABG O2 Saturation ABG Base Excess ABG Hemoglobin ABG Oxyhemoglobin 89.4 L ABG Sodium 152.9 H ABG Potassium 5.3 H ABG Chloride 121.0 H ABG Glucose 227 H Oxyhemoglobin Carboxyhemoglobin Sodium Potassium Chloride Carbon Dioxide BUN Creatinine Glucose POC Glucose 198 H Hemoglobin A1c Lactic Acid Calcium Phosphorus Magnesium Ferritin Total Bilirubin AST ALT Lactate Dehydrogenase C-Reactive Protein Albumin Triglycerides Arterial Blood Glucose 227 H Arterial Blood Ionized Calcium Urine Creatinine Coronavirus (PCR) Crossmatch 01/30/21 01/30/21 01/30/21 04:00 04:00 04:00 WBC RBC Hgb Hct MCV MCH MCHC RDW Plt Count Lymph % (Auto) Lymph # (Auto) Seg Neutrophils % Seg Neuts % (Manual) Lymphocytes % (Manual) Monocytes % (Manual) Nucleated RBC % Seg Neutrophils # Seg Neutrophils # Man Lymphocytes # (Manual) Monocytes # (Manual) Eosinophils # (Manual) INR D-Dimer > 47128 H ABG pH POC ABG pCO2 POC ABG pO2 ABG pO2 ABG HCO3 ABG O2 Saturation ABG Base Excess ABG Hemoglobin ABG Oxyhemoglobin ABG Sodium ABG Potassium ABG Chloride ABG Glucose Oxyhemoglobin Carboxyhemoglobin Sodium Potassium Chloride Carbon Dioxide BUN Creatinine Glucose 234 H POC Glucose Hemoglobin A1c Lactic Acid Calcium Phosphorus Magnesium Ferritin 763.9 H Total Bilirubin AST ALT Lactate Dehydrogenase 424 H C-Reactive Protein 23.90 H Albumin Triglycerides Arterial Blood Glucose Arterial Blood Ionized Calcium Urine Creatinine Coronavirus (PCR) Crossmatch 01/30/21 01/30/21 01/30/21 04:24 05:00 05:16 WBC RBC 3.57 L Hgb 11.3 L Hct 35.4 L MCV 99 H MCH MCHC RDW 15.6 H Plt Count Lymph % (Auto) Lymph # (Auto) Seg Neutrophils % Seg Neuts % (Manual) 97.0 H Lymphocytes % (Manual) 1.0 L Monocytes % (Manual) Nucleated RBC % Seg Neutrophils # Seg Neutrophils # Man 8.6 H Lymphocytes # (Manual) 0.1 L Monocytes # (Manual) Eosinophils # (Manual) INR D-Dimer ABG pH 7.235 L POC ABG pCO2 69.7 H POC ABG pO2 61.0 L ABG pO2 ABG HCO3 ABG O2 Saturation ABG Base Excess ABG Hemoglobin ABG Oxyhemoglobin 89 L ABG Sodium 154.2 H ABG Potassium 5.4 H ABG Chloride 121.0 H ABG Glucose 247 H Oxyhemoglobin Carboxyhemoglobin Sodium Potassium Chloride Carbon Dioxide BUN Creatinine Glucose POC Glucose 238 H Hemoglobin A1c Lactic Acid Calcium Phosphorus Magnesium Ferritin Total Bilirubin AST ALT Lactate Dehydrogenase C-Reactive Protein Albumin Triglycerides Arterial Blood Glucose 247 H Arterial Blood Ionized Calcium Urine Creatinine Coronavirus (PCR) Crossmatch 01/30/21 01/30/21 01/30/21 06:00 11:28 12:00 WBC RBC Hgb Hct MCV MCH MCHC RDW Plt Count Lymph % (Auto) Lymph # (Auto) Seg Neutrophils % Seg Neuts % (Manual) Lymphocytes % (Manual) Monocytes % (Manual) Nucleated RBC % Seg Neutrophils # Seg Neutrophils # Man Lymphocytes # (Manual) Monocytes # (Manual) Eosinophils # (Manual) INR D-Dimer ABG pH POC ABG pCO2 POC ABG pO2 ABG pO2 ABG HCO3 ABG O2 Saturation ABG Base Excess ABG Hemoglobin ABG Oxyhemoglobin ABG Sodium ABG Potassium ABG Chloride ABG Glucose Oxyhemoglobin Carboxyhemoglobin Sodium 152 H Potassium 5.3 H Chloride 120.5 H Carbon Dioxide BUN 50 H Creatinine 2.3 H Glucose 239 H POC Glucose 153 H Hemoglobin A1c Lactic Acid Calcium 8.2 L Phosphorus Magnesium 2.60 H Ferritin Total Bilirubin AST ALT Lactate Dehydrogenase C-Reactive Protein Albumin Triglycerides 293 H Arterial Blood Glucose Arterial Blood Ionized Calcium Urine Creatinine 53.0 H Coronavirus (PCR) Crossmatch 01/30/21 01/30/21 01/31/21 18:49 23:06 04:00 WBC RBC Hgb Hct MCV MCH MCHC RDW Plt Count Lymph % (Auto) Lymph # (Auto) Seg Neutrophils % Seg Neuts % (Manual) Lymphocytes % (Manual) Monocytes % (Manual) Nucleated RBC % Seg Neutrophils # Seg Neutrophils # Man Lymphocytes # (Manual) Monocytes # (Manual) Eosinophils # (Manual) INR D-Dimer ABG pH POC ABG pCO2 POC ABG pO2 ABG pO2 ABG HCO3 ABG O2 Saturation ABG Base Excess ABG Hemoglobin ABG Oxyhemoglobin ABG Sodium ABG Potassium ABG Chloride ABG Glucose Oxyhemoglobin Carboxyhemoglobin Sodium 156 H Potassium 5.9 H Chloride 122.6 H Carbon Dioxide BUN 61 H Creatinine 3.2 H Glucose 205 H POC Glucose 220 H 192 H Hemoglobin A1c Lactic Acid Calcium 8.0 L Phosphorus Magnesium Ferritin Total Bilirubin AST ALT Lactate Dehydrogenase C-Reactive Protein Albumin Triglycerides Arterial Blood Glucose Arterial Blood Ionized Calcium Urine Creatinine Coronavirus (PCR) Crossmatch 01/31/21 01/31/21 01/31/21 04:40 05:17 11:33 WBC RBC Hgb Hct MCV MCH MCHC RDW Plt Count Lymph % (Auto) Lymph # (Auto) Seg Neutrophils % Seg Neuts % (Manual) Lymphocytes % (Manual) Monocytes % (Manual) Nucleated RBC % Seg Neutrophils # Seg Neutrophils # Man Lymphocytes # (Manual) Monocytes # (Manual) Eosinophils # (Manual) INR D-Dimer ABG pH 7.161 L* POC ABG pCO2 POC ABG pO2 ABG pO2 142.2 H ABG HCO3 28.3 H ABG O2 Saturation ABG Base Excess -3.2 L ABG Hemoglobin ABG Oxyhemoglobin ABG Sodium ABG Potassium ABG Chloride ABG Glucose Oxyhemoglobin Carboxyhemoglobin Sodium Potassium Chloride Carbon Dioxide BUN Creatinine Glucose POC Glucose 200 H 167 H Hemoglobin A1c Lactic Acid Calcium Phosphorus Magnesium Ferritin Total Bilirubin AST ALT Lactate Dehydrogenase C-Reactive Protein Albumin Triglycerides Arterial Blood Glucose Arterial Blood Ionized Calcium Urine Creatinine Coronavirus (PCR) Crossmatch 01/31/21 01/31/21 01/31/21 14:00 17:10 23:24 WBC RBC Hgb Hct MCV MCH MCHC RDW Plt Count Lymph % (Auto) Lymph # (Auto) Seg Neutrophils % Seg Neuts % (Manual) Lymphocytes % (Manual) Monocytes % (Manual) Nucleated RBC % Seg Neutrophils # Seg Neutrophils # Man Lymphocytes # (Manual) Monocytes # (Manual) Eosinophils # (Manual) INR D-Dimer ABG pH 7.205 L POC ABG pCO2 POC ABG pO2 ABG pO2 90.9 H ABG HCO3 26.5 H ABG O2 Saturation ABG Base Excess -2.7 L ABG Hemoglobin 12.3 L ABG Oxyhemoglobin ABG Sodium ABG Potassium ABG Chloride ABG Glucose Oxyhemoglobin 93.9 L Carboxyhemoglobin Sodium Potassium Chloride Carbon Dioxide BUN Creatinine Glucose POC Glucose 190 H 203 H Hemoglobin A1c Lactic Acid Calcium Phosphorus Magnesium Ferritin Total Bilirubin AST ALT Lactate Dehydrogenase C-Reactive Protein Albumin Triglycerides Arterial Blood Glucose Arterial Blood Ionized Calcium Urine Creatinine Coronavirus (PCR) Crossmatch 02/01/21 02/01/21 02/01/21 05:15 06:22 10:20 WBC RBC Hgb Hct MCV MCH MCHC RDW Plt Count Lymph % (Auto) Lymph # (Auto) Seg Neutrophils % Seg Neuts % (Manual) Lymphocytes % (Manual) Monocytes % (Manual) Nucleated RBC % Seg Neutrophils # Seg Neutrophils # Man Lymphocytes # (Manual) Monocytes # (Manual) Eosinophils # (Manual) INR D-Dimer ABG pH 6.920 L* 7.116 L* POC ABG pCO2 POC ABG pO2 ABG pO2 102.9 H 113.1 H ABG HCO3 28.2 H ABG O2 Saturation 92.9 L ABG Base Excess -6.9 L -5.8 L ABG Hemoglobin 11.6 L 9.5 L ABG Oxyhemoglobin ABG Sodium ABG Potassium ABG Chloride ABG Glucose Oxyhemoglobin 90.5 L 94.6 L Carboxyhemoglobin Sodium Potassium Chloride Carbon Dioxide BUN Creatinine Glucose POC Glucose 221 H Hemoglobin A1c Lactic Acid Calcium Phosphorus Magnesium Ferritin Total Bilirubin AST ALT Lactate Dehydrogenase C-Reactive Protein Albumin Triglycerides Arterial Blood Glucose Arterial Blood Ionized Calcium Urine Creatinine Coronavirus (PCR) Crossmatch 02/01/21 02/01/21 02/01/21 11:12 12:35 16:00 WBC RBC Hgb Hct MCV MCH MCHC RDW Plt Count Lymph % (Auto) Lymph # (Auto) Seg Neutrophils % Seg Neuts % (Manual) Lymphocytes % (Manual) Monocytes % (Manual) Nucleated RBC % Seg Neutrophils # Seg Neutrophils # Man Lymphocytes # (Manual) Monocytes # (Manual) Eosinophils # (Manual) INR D-Dimer ABG pH 7.155 L* POC ABG pCO2 POC ABG pO2 ABG pO2 94.6 H ABG HCO3 ABG O2 Saturation ABG Base Excess -6.5 L ABG Hemoglobin 13.1 L ABG Oxyhemoglobin ABG Sodium ABG Potassium ABG Chloride ABG Glucose Oxyhemoglobin 93.7 L Carboxyhemoglobin Sodium 155 H Potassium 5.1 H Chloride 120.5 H Carbon Dioxide BUN 90 H Creatinine 6.1 H D Glucose 238 H POC Glucose 207 H Hemoglobin A1c Lactic Acid Calcium 7.4 L Phosphorus Magnesium Ferritin Total Bilirubin AST ALT Lactate Dehydrogenase C-Reactive Protein Albumin Triglycerides Arterial Blood Glucose Arterial Blood Ionized Calcium Urine Creatinine Coronavirus (PCR) Crossmatch 02/01/21 02/01/21 02/02/21 17:10 23:47 04:04 WBC RBC 3.02 L Hgb 9.8 L Hct 30.7 L MCV 102 H MCH MCHC RDW 15.6 H Plt Count Lymph % (Auto) 4.2 L Lymph # (Auto) 0.3 L Seg Neutrophils % Seg Neuts % (Manual) Lymphocytes % (Manual) Monocytes % (Manual) Nucleated RBC % Seg Neutrophils # Seg Neutrophils # Man Lymphocytes # (Manual) Monocytes # (Manual) Eosinophils # (Manual) INR D-Dimer ABG pH POC ABG pCO2 POC ABG pO2 ABG pO2 ABG HCO3 ABG O2 Saturation ABG Base Excess ABG Hemoglobin ABG Oxyhemoglobin ABG Sodium ABG Potassium ABG Chloride ABG Glucose Oxyhemoglobin Carboxyhemoglobin Sodium Potassium Chloride Carbon Dioxide BUN Creatinine Glucose POC Glucose 238 H 235 H Hemoglobin A1c Lactic Acid Calcium Phosphorus Magnesium Ferritin Total Bilirubin AST ALT Lactate Dehydrogenase C-Reactive Protein Albumin Triglycerides Arterial Blood Glucose Arterial Blood Ionized Calcium Urine Creatinine Coronavirus (PCR) Crossmatch 02/02/21 02/02/21 02/02/21 05:18 05:35 11:28 WBC RBC Hgb Hct MCV MCH MCHC RDW Plt Count Lymph % (Auto) Lymph # (Auto) Seg Neutrophils % Seg Neuts % (Manual) Lymphocytes % (Manual) Monocytes % (Manual) Nucleated RBC % Seg Neutrophils # Seg Neutrophils # Man Lymphocytes # (Manual) Monocytes # (Manual) Eosinophils # (Manual) INR D-Dimer ABG pH 7.195 L* POC ABG pCO2 POC ABG pO2 ABG pO2 72.5 L ABG HCO3 ABG O2 Saturation 91.2 L ABG Base Excess -5.3 L ABG Hemoglobin 6.0 L ABG Oxyhemoglobin ABG Sodium ABG Potassium ABG Chloride ABG Glucose Oxyhemoglobin 89.1 L Carboxyhemoglobin Sodium Potassium Chloride 110.4 H Carbon Dioxide BUN 92 H Creatinine Glucose POC Glucose 239 H Hemoglobin A1c Lactic Acid Calcium Phosphorus Magnesium Ferritin Total Bilirubin AST ALT Lactate Dehydrogenase C-Reactive Protein Albumin Triglycerides Arterial Blood Glucose Arterial Blood Ionized Calcium Urine Creatinine Coronavirus (PCR) Crossmatch 02/02/21 02/02/21 02/02/21 11:53 16:00 18:04 WBC RBC Hgb Hct MCV MCH MCHC RDW Plt Count Lymph % (Auto) Lymph # (Auto) Seg Neutrophils % Seg Neuts % (Manual) Lymphocytes % (Manual) Monocytes % (Manual) Nucleated RBC % Seg Neutrophils # Seg Neutrophils # Man Lymphocytes # (Manual) Monocytes # (Manual) Eosinophils # (Manual) INR D-Dimer ABG pH POC ABG pCO2 POC ABG pO2 ABG pO2 ABG HCO3 ABG O2 Saturation ABG Base Excess ABG Hemoglobin ABG Oxyhemoglobin ABG Sodium ABG Potassium ABG Chloride ABG Glucose Oxyhemoglobin Carboxyhemoglobin Sodium Potassium Chloride Carbon Dioxide BUN Creatinine Glucose POC Glucose 248 H 199 H Hemoglobin A1c 6.3 H Lactic Acid Calcium Phosphorus Magnesium Ferritin Total Bilirubin AST ALT Lactate Dehydrogenase C-Reactive Protein Albumin Triglycerides Arterial Blood Glucose Arterial Blood Ionized Calcium Urine Creatinine Coronavirus (PCR) Crossmatch 02/02/21 02/03/21 02/03/21 23:31 03:12 04:10 WBC RBC 3.06 L Hgb 9.7 L Hct 30.4 L MCV 99 H MCH MCHC RDW 15.3 H Plt Count Lymph % (Auto) 6.1 L Lymph # (Auto) 0.5 L Seg Neutrophils % 86.1 H Seg Neuts % (Manual) Lymphocytes % (Manual) Monocytes % (Manual) Nucleated RBC % Seg Neutrophils # Seg Neutrophils # Man Lymphocytes # (Manual) Monocytes # (Manual) Eosinophils # (Manual) INR D-Dimer ABG pH 7.199 L POC ABG pCO2 48.3 H POC ABG pO2 68.3 L ABG pO2 ABG HCO3 ABG O2 Saturation ABG Base Excess ABG Hemoglobin 10.2 L ABG Oxyhemoglobin 89.2 L ABG Sodium 155.0 H ABG Potassium 4.6 H ABG Chloride 121.0 H ABG Glucose 166 H Oxyhemoglobin Carboxyhemoglobin 0.3 L Sodium Potassium Chloride Carbon Dioxide BUN Creatinine Glucose POC Glucose 200 H Hemoglobin A1c Lactic Acid Calcium Phosphorus Magnesium Ferritin Total Bilirubin AST ALT Lactate Dehydrogenase C-Reactive Protein Albumin Triglycerides Arterial Blood Glucose 166 H Arterial Blood Ionized Calcium 4.1 L Urine Creatinine Coronavirus (PCR) Crossmatch 02/03/21 02/03/21 02/03/21 04:10 05:34 11:51 WBC RBC Hgb Hct MCV MCH MCHC RDW Plt Count Lymph % (Auto) Lymph # (Auto) Seg Neutrophils % Seg Neuts % (Manual) Lymphocytes % (Manual) Monocytes % (Manual) Nucleated RBC % Seg Neutrophils # Seg Neutrophils # Man Lymphocytes # (Manual) Monocytes # (Manual) Eosinophils # (Manual) INR D-Dimer ABG pH POC ABG pCO2 POC ABG pO2 ABG pO2 ABG HCO3 ABG O2 Saturation ABG Base Excess ABG Hemoglobin ABG Oxyhemoglobin ABG Sodium ABG Potassium ABG Chloride ABG Glucose Oxyhemoglobin Carboxyhemoglobin Sodium 154 H D Potassium Chloride 116.7 H Carbon Dioxide 20 L BUN 130 H Creatinine 9.2 H D Glucose 160 H POC Glucose 130 H 154 H Hemoglobin A1c Lactic Acid Calcium 6.7 L Phosphorus 8.60 H Magnesium Ferritin Total Bilirubin AST ALT Lactate Dehydrogenase C-Reactive Protein Albumin Triglycerides Arterial Blood Glucose Arterial Blood Ionized Calcium Urine Creatinine Coronavirus (PCR) Crossmatch 02/03/21 02/03/21 02/04/21 16:49 23:22 03:48 WBC RBC Hgb Hct MCV MCH MCHC RDW Plt Count Lymph % (Auto) Lymph # (Auto) Seg Neutrophils % Seg Neuts % (Manual) Lymphocytes % (Manual) Monocytes % (Manual) Nucleated RBC % Seg Neutrophils # Seg Neutrophils # Man Lymphocytes # (Manual) Monocytes # (Manual) Eosinophils # (Manual) INR D-Dimer ABG pH 7.201 L POC ABG pCO2 54.5 H POC ABG pO2 74.0 L ABG pO2 ABG HCO3 ABG O2 Saturation ABG Base Excess ABG Hemoglobin 9.7 L ABG Oxyhemoglobin 91.1 L ABG Sodium 146.2 H ABG Potassium ABG Chloride 114.0 H ABG Glucose 155 H Oxyhemoglobin Carboxyhemoglobin Sodium Potassium Chloride Carbon Dioxide BUN Creatinine Glucose POC Glucose 164 H 152 H Hemoglobin A1c Lactic Acid Calcium Phosphorus Magnesium Ferritin Total Bilirubin AST ALT Lactate Dehydrogenase C-Reactive Protein Albumin Triglycerides Arterial Blood Glucose 155 H Arterial Blood Ionized Calcium 3.9 L Urine Creatinine Coronavirus (PCR) Crossmatch 02/04/21 02/04/21 02/04/21 04:45 04:45 04:45 WBC RBC 2.75 L Hgb 9.1 L Hct 26.9 L MCV 98 H MCH 33 H MCHC RDW Plt Count Lymph % (Auto) 6.8 L Lymph # (Auto) 0.5 L Seg Neutrophils % 87.2 H Seg Neuts % (Manual) Lymphocytes % (Manual) Monocytes % (Manual) Nucleated RBC % Seg Neutrophils # Seg Neutrophils # Man Lymphocytes # (Manual) Monocytes # (Manual) Eosinophils # (Manual) INR D-Dimer ABG pH POC ABG pCO2 POC ABG pO2 ABG pO2 ABG HCO3 ABG O2 Saturation ABG Base Excess ABG Hemoglobin ABG Oxyhemoglobin ABG Sodium ABG Potassium ABG Chloride ABG Glucose Oxyhemoglobin Carboxyhemoglobin Sodium 149 H Potassium Chloride 111.5 H Carbon Dioxide BUN 99 H Creatinine 8.5 H Glucose 139 H POC Glucose Hemoglobin A1c Lactic Acid Calcium 6.8 L Phosphorus 8.40 H Magnesium Ferritin Total Bilirubin AST ALT Lactate Dehydrogenase C-Reactive Protein Albumin Triglycerides Arterial Blood Glucose Arterial Blood Ionized Calcium Urine Creatinine Coronavirus (PCR) Crossmatch 02/04/21 02/04/21 02/04/21 06:05 11:44 18:00 WBC RBC Hgb Hct MCV MCH MCHC RDW Plt Count Lymph % (Auto) Lymph # (Auto) Seg Neutrophils % Seg Neuts % (Manual) Lymphocytes % (Manual) Monocytes % (Manual) Nucleated RBC % Seg Neutrophils # Seg Neutrophils # Man Lymphocytes # (Manual) Monocytes # (Manual) Eosinophils # (Manual) INR D-Dimer ABG pH POC ABG pCO2 POC ABG pO2 ABG pO2 ABG HCO3 ABG O2 Saturation ABG Base Excess ABG Hemoglobin ABG Oxyhemoglobin ABG Sodium ABG Potassium ABG Chloride ABG Glucose Oxyhemoglobin Carboxyhemoglobin Sodium Potassium Chloride Carbon Dioxide BUN Creatinine Glucose POC Glucose 138 H 129 H 163 H Hemoglobin A1c Lactic Acid Calcium Phosphorus Magnesium Ferritin Total Bilirubin AST ALT Lactate Dehydrogenase C-Reactive Protein Albumin Triglycerides Arterial Blood Glucose Arterial Blood Ionized Calcium Urine Creatinine Coronavirus (PCR) Crossmatch 02/04/21 02/05/21 02/05/21 23:48 01:50 01:50 WBC RBC 2.43 L Hgb 8.3 L Hct 23.6 L MCV 97 H MCH 34 H MCHC 35 H RDW Plt Count 137 L Lymph % (Auto) 8.4 L Lymph # (Auto) 0.6 L Seg Neutrophils % 86.1 H Seg Neuts % (Manual) Lymphocytes % (Manual) Monocytes % (Manual) Nucleated RBC % Seg Neutrophils # Seg Neutrophils # Man Lymphocytes # (Manual) Monocytes # (Manual) Eosinophils # (Manual) INR D-Dimer ABG pH POC ABG pCO2 POC ABG pO2 ABG pO2 ABG HCO3 ABG O2 Saturation ABG Base Excess ABG Hemoglobin ABG Oxyhemoglobin ABG Sodium ABG Potassium ABG Chloride ABG Glucose Oxyhemoglobin Carboxyhemoglobin Sodium Potassium Chloride Carbon Dioxide BUN Creatinine Glucose POC Glucose 157 H Hemoglobin A1c Lactic Acid Calcium Phosphorus 5.60 H D Magnesium Ferritin Total Bilirubin AST ALT Lactate Dehydrogenase C-Reactive Protein Albumin Triglycerides Arterial Blood Glucose Arterial Blood Ionized Calcium Urine Creatinine Coronavirus (PCR) Crossmatch 02/05/21 02/05/21 02/05/21 03:44 05:27 09:15 WBC RBC Hgb Hct MCV MCH MCHC RDW Plt Count Lymph % (Auto) Lymph # (Auto) Seg Neutrophils % Seg Neuts % (Manual) Lymphocytes % (Manual) Monocytes % (Manual) Nucleated RBC % Seg Neutrophils # Seg Neutrophils # Man Lymphocytes # (Manual) Monocytes # (Manual) Eosinophils # (Manual) INR D-Dimer ABG pH 7.202 L POC ABG pCO2 63.7 H POC ABG pO2 69.0 L ABG pO2 ABG HCO3 ABG O2 Saturation ABG Base Excess ABG Hemoglobin 9.4 L ABG Oxyhemoglobin ABG Sodium ABG Potassium ABG Chloride 108.0 H ABG Glucose 186 H Oxyhemoglobin Carboxyhemoglobin Sodium Potassium Chloride Carbon Dioxide BUN 78 H Creatinine 8.0 H Glucose 163 H POC Glucose 157 H Hemoglobin A1c Lactic Acid Calcium 6.3 L Phosphorus Magnesium Ferritin Total Bilirubin AST ALT Lactate Dehydrogenase C-Reactive Protein Albumin Triglycerides Arterial Blood Glucose 186 H Arterial Blood Ionized Calcium 3.9 L Urine Creatinine Coronavirus (PCR) Crossmatch 02/05/21 02/05/21 02/05/21 11:47 17:39 23:40 WBC RBC Hgb Hct MCV MCH MCHC RDW Plt Count Lymph % (Auto) Lymph # (Auto) Seg Neutrophils % Seg Neuts % (Manual) Lymphocytes % (Manual) Monocytes % (Manual) Nucleated RBC % Seg Neutrophils # Seg Neutrophils # Man Lymphocytes # (Manual) Monocytes # (Manual) Eosinophils # (Manual) INR D-Dimer ABG pH 7.273 L POC ABG pCO2 62.1 H POC ABG pO2 72.0 L ABG pO2 ABG HCO3 ABG O2 Saturation ABG Base Excess ABG Hemoglobin 9.1 L ABG Oxyhemoglobin 91.3 L ABG Sodium ABG Potassium 3.1 L ABG Chloride ABG Glucose 125 H Oxyhemoglobin Carboxyhemoglobin Sodium Potassium Chloride Carbon Dioxide BUN Creatinine Glucose POC Glucose 126 H 126 H Hemoglobin A1c Lactic Acid Calcium Phosphorus Magnesium Ferritin Total Bilirubin AST ALT Lactate Dehydrogenase C-Reactive Protein Albumin Triglycerides Arterial Blood Glucose 125 H Arterial Blood Ionized Calcium 4.0 L Urine Creatinine Coronavirus (PCR) Crossmatch 02/06/21 02/06/21 02/06/21 04:30 04:57 09:45 WBC RBC Hgb Hct MCV MCH MCHC RDW Plt Count Lymph % (Auto) Lymph # (Auto) Seg Neutrophils % Seg Neuts % (Manual) Lymphocytes % (Manual) Monocytes % (Manual) Nucleated RBC % Seg Neutrophils # Seg Neutrophils # Man Lymphocytes # (Manual) Monocytes # (Manual) Eosinophils # (Manual) INR D-Dimer ABG pH 7.159 L 7.138 L* POC ABG pCO2 76.3 H POC ABG pO2 66.9 L ABG pO2 ABG HCO3 ABG O2 Saturation 93.4 L ABG Base Excess -6.0 L ABG Hemoglobin 11.2 L 11.7 L ABG Oxyhemoglobin 88.2 L ABG Sodium ABG Potassium ABG Chloride ABG Glucose 134 H Oxyhemoglobin 91.2 L Carboxyhemoglobin Sodium Potassium Chloride Carbon Dioxide BUN Creatinine Glucose POC Glucose 124 H Hemoglobin A1c Lactic Acid Calcium Phosphorus Magnesium Ferritin Total Bilirubin AST ALT Lactate Dehydrogenase C-Reactive Protein Albumin Triglycerides Arterial Blood Glucose 134 H Arterial Blood Ionized Calcium 3.9 L Urine Creatinine Coronavirus (PCR) Crossmatch 02/06/21 02/06/21 02/06/21 11:11 17:00 17:00 WBC RBC Hgb Hct MCV MCH MCHC RDW Plt Count Lymph % (Auto) Lymph # (Auto) Seg Neutrophils % Seg Neuts % (Manual) Lymphocytes % (Manual) Monocytes % (Manual) Nucleated RBC % Seg Neutrophils # Seg Neutrophils # Man Lymphocytes # (Manual) Monocytes # (Manual) Eosinophils # (Manual) INR D-Dimer ABG pH 7.158 L* POC ABG pCO2 POC ABG pO2 ABG pO2 109.8 H ABG HCO3 28.7 H ABG O2 Saturation ABG Base Excess -2.5 L ABG Hemoglobin ABG Oxyhemoglobin ABG Sodium ABG Potassium ABG Chloride ABG Glucose Oxyhemoglobin 94.5 L Carboxyhemoglobin Sodium Potassium Chloride Carbon Dioxide BUN Creatinine Glucose POC Glucose 120 H Hemoglobin A1c Lactic Acid Calcium Phosphorus Magnesium Ferritin Total Bilirubin AST ALT Lactate Dehydrogenase C-Reactive Protein Albumin Triglycerides 503 H Arterial Blood Glucose Arterial Blood Ionized Calcium Urine Creatinine Coronavirus (PCR) Crossmatch 02/06/21 02/06/21 02/06/21 17:28 20:16 Unknown WBC 13.5 H RBC 2.98 L Hgb 9.3 L Hct 28.6 L MCV 96 H MCH MCHC RDW Plt Count Lymph % (Auto) Lymph # (Auto) Seg Neutrophils % Seg Neuts % (Manual) 87.0 H Lymphocytes % (Manual) 7.0 L Monocytes % (Manual) Nucleated RBC % Seg Neutrophils # Seg Neutrophils # Man 11.7 H Lymphocytes # (Manual) 0.9 L Monocytes # (Manual) Eosinophils # (Manual) 0.5 H INR D-Dimer ABG pH POC ABG pCO2 POC ABG pO2 ABG pO2 ABG HCO3 ABG O2 Saturation ABG Base Excess ABG Hemoglobin ABG Oxyhemoglobin ABG Sodium ABG Potassium ABG Chloride ABG Glucose Oxyhemoglobin Carboxyhemoglobin Sodium Potassium Chloride Carbon Dioxide BUN Creatinine Glucose POC Glucose 147 H 164 H Hemoglobin A1c Lactic Acid Calcium Phosphorus Magnesium Ferritin Total Bilirubin AST ALT Lactate Dehydrogenase C-Reactive Protein Albumin Triglycerides Arterial Blood Glucose Arterial Blood Ionized Calcium Urine Creatinine Coronavirus (PCR) Crossmatch 02/06/21 02/07/21 02/07/21 Unknown :21 04:00 WBC 12.0 H RBC 2.61 L Hgb 8.2 L Hct 24.5 L MCV MCH MCHC RDW Plt Count Lymph % (Auto) 8.9 L Lymph # (Auto) 1.1 L Seg Neutrophils % 86.3 H Seg Neuts % (Manual) Lymphocytes % (Manual) Monocytes % (Manual) Nucleated RBC % Seg Neutrophils # 10.3 H Seg Neutrophils # Man Lymphocytes # (Manual) Monocytes # (Manual) Eosinophils # (Manual) INR D-Dimer ABG pH POC ABG pCO2 POC ABG pO2 ABG pO2 ABG HCO3 ABG O2 Saturation ABG Base Excess ABG Hemoglobin ABG Oxyhemoglobin ABG Sodium ABG Potassium ABG Chloride ABG Glucose Oxyhemoglobin Carboxyhemoglobin Sodium Potassium 3.5 L Chloride Carbon Dioxide BUN 58 H Creatinine 6.6 H Glucose 107 H POC Glucose 173 H Hemoglobin A1c Lactic Acid Calcium 6.7 L Phosphorus 8.00 H D Magnesium Ferritin Total Bilirubin AST ALT Lactate Dehydrogenase C-Reactive Protein Albumin Triglycerides Arterial Blood Glucose Arterial Blood Ionized Calcium Urine Creatinine Coronavirus (PCR) Crossmatch 02/07/21 02/07/21 02/07/21 04:00 04:45 11:49 WBC RBC Hgb Hct MCV MCH MCHC RDW Plt Count Lymph % (Auto) Lymph # (Auto) Seg Neutrophils % Seg Neuts % (Manual) Lymphocytes % (Manual) Monocytes % (Manual) Nucleated RBC % Seg Neutrophils # Seg Neutrophils # Man Lymphocytes # (Manual) Monocytes # (Manual) Eosinophils # (Manual) INR D-Dimer ABG pH 7.287 L POC ABG pCO2 64.8 H POC ABG pO2 74.0 L ABG pO2 ABG HCO3 ABG O2 Saturation ABG Base Excess ABG Hemoglobin 9.1 L ABG Oxyhemoglobin 92.0 L ABG Sodium ABG Potassium 2.8 L ABG Chloride ABG Glucose 226 H Oxyhemoglobin Carboxyhemoglobin Sodium Potassium Chloride Carbon Dioxide BUN Creatinine Glucose POC Glucose 170 H Hemoglobin A1c Lactic Acid Calcium Phosphorus 5.50 H D Magnesium Ferritin Total Bilirubin AST ALT Lactate Dehydrogenase C-Reactive Protein Albumin Triglycerides Arterial Blood Glucose 226 H Arterial Blood Ionized Calcium 3.7 L Urine Creatinine Coronavirus (PCR) Crossmatch 04/08/2002/07/21 02/07/21 13:48 17:45 23:02 WBC RBC Hgb Hct MCV MCH MCHC RDW Plt Count Lymph % (Auto) Lymph # (Auto) Seg Neutrophils % Seg Neuts % (Manual) Lymphocytes % (Manual) Monocytes % (Manual) Nucleated RBC % Seg Neutrophils # Seg Neutrophils # Man Lymphocytes # (Manual) Monocytes # (Manual) Eosinophils # (Manual) INR D-Dimer ABG pH POC ABG pCO2 POC ABG pO2 ABG pO2 ABG HCO3 ABG O2 Saturation ABG Base Excess ABG Hemoglobin ABG Oxyhemoglobin ABG Sodium ABG Potassium ABG Chloride ABG Glucose Oxyhemoglobin Carboxyhemoglobin Sodium 136 L Potassium 2.6 L* D Chloride 95.1 L Carbon Dioxide 33 H D BUN 30 H Creatinine 3.6 H Glucose 184 H POC Glucose 172 H 172 H Hemoglobin A1c Lactic Acid Calcium 6.9 L Phosphorus Magnesium Ferritin Total Bilirubin AST ALT Lactate Dehydrogenase C-Reactive Protein Albumin Triglycerides Arterial Blood Glucose Arterial Blood Ionized Calcium Urine Creatinine Coronavirus (PCR) Crossmatch 02/08/21 02/08/21 02/08/21 05:22 06:00 06:00 WBC RBC 2.21 L Hgb 7.2 L Hct 21.0 L MCV 95 H MCH MCHC RDW Plt Count Lymph % (Auto) Lymph # (Auto) Seg Neutrophils % Seg Neuts % (Manual) 87.0 H Lymphocytes % (Manual) 4.0 L Monocytes % (Manual) Nucleated RBC % Seg Neutrophils # Seg Neutrophils # Man 8.5 H Lymphocytes # (Manual) 0.4 L Monocytes # (Manual) Eosinophils # (Manual) INR D-Dimer ABG pH POC ABG pCO2 POC ABG pO2 ABG pO2 ABG HCO3 ABG O2 Saturation ABG Base Excess ABG Hemoglobin ABG Oxyhemoglobin ABG Sodium ABG Potassium ABG Chloride ABG Glucose Oxyhemoglobin Carboxyhemoglobin Sodium 136 L Potassium 2.4 L* Chloride 93.1 L Carbon Dioxide 36 H BUN 43 H Creatinine 5.4 H Glucose 167 H POC Glucose 162 H Hemoglobin A1c Lactic Acid Calcium 6.3 L Phosphorus Magnesium Ferritin Total Bilirubin AST ALT Lactate Dehydrogenase C-Reactive Protein Albumin Triglycerides Arterial Blood Glucose Arterial Blood Ionized Calcium Urine Creatinine Coronavirus (PCR) Crossmatch 02/08/21 02/08/21 02/08/21 11:44 17:53 18:56 WBC RBC Hgb Hct MCV MCH MCHC RDW Plt Count Lymph % (Auto) Lymph # (Auto) Seg Neutrophils % Seg Neuts % (Manual) Lymphocytes % (Manual) Monocytes % (Manual) Nucleated RBC % Seg Neutrophils # Seg Neutrophils # Man Lymphocytes # (Manual) Monocytes # (Manual) Eosinophils # (Manual) INR D-Dimer ABG pH POC ABG pCO2 POC ABG pO2 ABG pO2 ABG HCO3 ABG O2 Saturation ABG Base Excess ABG Hemoglobin ABG Oxyhemoglobin ABG Sodium ABG Potassium ABG Chloride ABG Glucose Oxyhemoglobin Carboxyhemoglobin Sodium Potassium 2.9 L* D Chloride Carbon Dioxide BUN Creatinine Glucose POC Glucose 164 H 154 H Hemoglobin A1c Lactic Acid Calcium Phosphorus Magnesium Ferritin Total Bilirubin AST ALT Lactate Dehydrogenase C-Reactive Protein Albumin Triglycerides Arterial Blood Glucose Arterial Blood Ionized Calcium Urine Creatinine Coronavirus (PCR) Crossmatch 02/08/21 02/08/21 02/09/21 23:24 23:58 03:21 WBC RBC Hgb Hct MCV MCH MCHC RDW Plt Count Lymph % (Auto) Lymph # (Auto) Seg Neutrophils % Seg Neuts % (Manual) Lymphocytes % (Manual) Monocytes % (Manual) Nucleated RBC % Seg Neutrophils # Seg Neutrophils # Man Lymphocytes # (Manual) Monocytes # (Manual) Eosinophils # (Manual) INR D-Dimer ABG pH 7.319 L POC ABG pCO2 63.3 H 68.3 H POC ABG pO2 71.2 L 76.5 L ABG pO2 ABG HCO3 ABG O2 Saturation ABG Base Excess ABG Hemoglobin 8.2 L 7.0 L ABG Oxyhemoglobin 91.8 L 92.2 L ABG Sodium 134.6 L 133.0 L ABG Potassium 2.3 L 3.1 L ABG Chloride 96.0 L 95.0 L ABG Glucose 184 H 154 H Oxyhemoglobin Carboxyhemoglobin Sodium Potassium Chloride Carbon Dioxide BUN Creatinine Glucose POC Glucose 152 H Hemoglobin A1c Lactic Acid Calcium Phosphorus Magnesium Ferritin Total Bilirubin AST ALT Lactate Dehydrogenase C-Reactive Protein Albumin Triglycerides Arterial Blood Glucose 184 H 154 H Arterial Blood Ionized Calcium 3.6 L 3.5 L Urine Creatinine Coronavirus (PCR) Crossmatch 02/09/21 02/09/21 02/09/21 05:10 05:10 06:04 WBC RBC 2.14 L Hgb 7.0 L Hct 20.5 L MCV 96 H MCH 33 H MCHC RDW Plt Count Lymph % (Auto) Lymph # (Auto) Seg Neutrophils % Seg Neuts % (Manual) 82.0 H Lymphocytes % (Manual) 9.0 L Monocytes % (Manual) Nucleated RBC % 1.0 H Seg Neutrophils # Seg Neutrophils # Man 8.9 H Lymphocytes # (Manual) 1.0 L Monocytes # (Manual) Eosinophils # (Manual) INR D-Dimer ABG pH POC ABG pCO2 POC ABG pO2 ABG pO2 ABG HCO3 ABG O2 Saturation ABG Base Excess ABG Hemoglobin ABG Oxyhemoglobin ABG Sodium ABG Potassium ABG Chloride ABG Glucose Oxyhemoglobin Carboxyhemoglobin Sodium 135 L Potassium 3.2 L Chloride 91.0 L Carbon Dioxide 32 H BUN 54 H Creatinine 6.6 H Glucose 163 H POC Glucose 149 H Hemoglobin A1c Lactic Acid Calcium 6.2 L Phosphorus Magnesium Ferritin Total Bilirubin AST ALT Lactate Dehydrogenase C-Reactive Protein Albumin Triglycerides Arterial Blood Glucose Arterial Blood Ionized Calcium Urine Creatinine Coronavirus (PCR) Crossmatch 02/09/21 02/09/21 02/09/21 12:02 13:32 13:40 WBC RBC Hgb Hct MCV MCH MCHC RDW Plt Count Lymph % (Auto) Lymph # (Auto) Seg Neutrophils % Seg Neuts % (Manual) Lymphocytes % (Manual) Monocytes % (Manual) Nucleated RBC % Seg Neutrophils # Seg Neutrophils # Man Lymphocytes # (Manual) Monocytes # (Manual) Eosinophils # (Manual) INR D-Dimer ABG pH POC ABG pCO2 POC ABG pO2 ABG pO2 ABG HCO3 ABG O2 Saturation ABG Base Excess ABG Hemoglobin ABG Oxyhemoglobin ABG Sodium ABG Potassium ABG Chloride ABG Glucose Oxyhemoglobin Carboxyhemoglobin Sodium Potassium Chloride Carbon Dioxide BUN Creatinine Glucose POC Glucose 147 H Hemoglobin A1c Lactic Acid Calcium Phosphorus Magnesium Ferritin Total Bilirubin AST ALT Lactate Dehydrogenase C-Reactive Protein Albumin Triglycerides 250 H Arterial Blood Glucose Arterial Blood Ionized Calcium Urine Creatinine Coronavirus (PCR) Crossmatch See Detail 02/09/21 02/09/21 02/10/21 18:06 23:42 04:00 WBC RBC Hgb Hct MCV MCH MCHC RDW Plt Count Lymph % (Auto) Lymph # (Auto) Seg Neutrophils % Seg Neuts % (Manual) Lymphocytes % (Manual) Monocytes % (Manual) Nucleated RBC % Seg Neutrophils # Seg Neutrophils # Man Lymphocytes # (Manual) Monocytes # (Manual) Eosinophils # (Manual) INR D-Dimer ABG pH POC ABG pCO2 65.8 H POC ABG pO2 68.0 L ABG pO2 ABG HCO3 ABG O2 Saturation ABG Base Excess ABG Hemoglobin 8.3 L ABG Oxyhemoglobin ABG Sodium 132.4 L ABG Potassium 2.9 L ABG Chloride 92.0 L ABG Glucose 174 H Oxyhemoglobin Carboxyhemoglobin Sodium Potassium Chloride Carbon Dioxide BUN Creatinine Glucose POC Glucose 152 H 147 H Hemoglobin A1c Lactic Acid Calcium Phosphorus Magnesium Ferritin Total Bilirubin AST ALT Lactate Dehydrogenase C-Reactive Protein Albumin Triglycerides Arterial Blood Glucose 174 H Arterial Blood Ionized Calcium 3.4 L Urine Creatinine Coronavirus (PCR) Crossmatch 02/10/21 02/10/21 02/10/21 05:32 11:29 14:08 WBC 12.5 H RBC 2.14 L Hgb 6.6 L Hct 20.2 L MCV MCH MCHC RDW Plt Count Lymph % (Auto) Lymph # (Auto) Seg Neutrophils % Seg Neuts % (Manual) Lymphocytes % (Manual) Monocytes % (Manual) Nucleated RBC % Seg Neutrophils # Seg Neutrophils # Man Lymphocytes # (Manual) Monocytes # (Manual) Eosinophils # (Manual) INR D-Dimer ABG pH POC ABG pCO2 POC ABG pO2 ABG pO2 ABG HCO3 ABG O2 Saturation ABG Base Excess ABG Hemoglobin ABG Oxyhemoglobin ABG Sodium ABG Potassium ABG Chloride ABG Glucose Oxyhemoglobin Carboxyhemoglobin Sodium Potassium Chloride Carbon Dioxide BUN Creatinine Glucose POC Glucose 167 H 147 H Hemoglobin A1c Lactic Acid Calcium Phosphorus Magnesium Ferritin Total Bilirubin AST ALT Lactate Dehydrogenase C-Reactive Protein Albumin Triglycerides Arterial Blood Glucose Arterial Blood Ionized Calcium Urine Creatinine Coronavirus (PCR) Crossmatch 02/10/21 02/10/21 02/10/21 14:08 18:11 22:32 WBC RBC Hgb 6.4 L Hct 19.1 L* MCV MCH MCHC RDW Plt Count Lymph % (Auto) Lymph # (Auto) Seg Neutrophils % Seg Neuts % (Manual) Lymphocytes % (Manual) Monocytes % (Manual) Nucleated RBC % Seg Neutrophils # Seg Neutrophils # Man Lymphocytes # (Manual) Monocytes # (Manual) Eosinophils # (Manual) INR D-Dimer ABG pH POC ABG pCO2 POC ABG pO2 ABG pO2 ABG HCO3 ABG O2 Saturation ABG Base Excess ABG Hemoglobin ABG Oxyhemoglobin ABG Sodium ABG Potassium ABG Chloride ABG Glucose Oxyhemoglobin Carboxyhemoglobin Sodium 136 L Potassium 2.9 L* Chloride 90.2 L Carbon Dioxide 33 H BUN 42 H Creatinine 7.5 H Glucose 155 H POC Glucose 173 H Hemoglobin A1c Lactic Acid Calcium 6.1 L Phosphorus Magnesium Ferritin Total Bilirubin AST ALT Lactate Dehydrogenase C-Reactive Protein Albumin Triglycerides Arterial Blood Glucose Arterial Blood Ionized Calcium Urine Creatinine Coronavirus (PCR) Crossmatch 02/11/21 02/11/21 02/11/21 00:28 04:05 04:30 WBC RBC Hgb Hct MCV MCH MCHC RDW Plt Count Lymph % (Auto) Lymph # (Auto) Seg Neutrophils % Seg Neuts % (Manual) Lymphocytes % (Manual) Monocytes % (Manual) Nucleated RBC % Seg Neutrophils # Seg Neutrophils # Man Lymphocytes # (Manual) Monocytes # (Manual) Eosinophils # (Manual) INR D-Dimer ABG pH 7.307 L POC ABG pCO2 72.2 H POC ABG pO2 72.3 L ABG pO2 ABG HCO3 ABG O2 Saturation ABG Base Excess ABG Hemoglobin 8.2 L ABG Oxyhemoglobin ABG Sodium 132.3 L ABG Potassium 3.2 L ABG Chloride 91.0 L ABG Glucose 197 H Oxyhemoglobin Carboxyhemoglobin Sodium 135 L Potassium 3.3 L Chloride 87.1 L Carbon Dioxide 36 H BUN 71 H Creatinine 7.9 H Glucose 263 H POC Glucose 192 H Hemoglobin A1c Lactic Acid Calcium 6.2 L Phosphorus Magnesium Ferritin Total Bilirubin AST ALT Lactate Dehydrogenase C-Reactive Protein Albumin Triglycerides Arterial Blood Glucose 197 H Arterial Blood Ionized Calcium 3.3 L Urine Creatinine Coronavirus (PCR) Crossmatch 02/11/21 02/11/21 02/11/21 04:30 05:47 08:27 WBC RBC 2.22 L Hgb 7.2 L Hct 21.0 L MCV MCH MCHC RDW Plt Count Lymph % (Auto) 8.7 L Lymph # (Auto) 0.9 L Seg Neutrophils % 85.5 H Seg Neuts % (Manual) Lymphocytes % (Manual) Monocytes % (Manual) Nucleated RBC % Seg Neutrophils # 9.2 H Seg Neutrophils # Man Lymphocytes # (Manual) Monocytes # (Manual) Eosinophils # (Manual) INR 1.17 H D-Dimer 1930.92 H ABG pH POC ABG pCO2 POC ABG pO2 ABG pO2 ABG HCO3 ABG O2 Saturation ABG Base Excess ABG Hemoglobin ABG Oxyhemoglobin ABG Sodium ABG Potassium ABG Chloride ABG Glucose Oxyhemoglobin Carboxyhemoglobin Sodium Potassium Chloride Carbon Dioxide BUN Creatinine Glucose POC Glucose 189 H Hemoglobin A1c Lactic Acid Calcium Phosphorus Magnesium Ferritin Total Bilirubin AST ALT Lactate Dehydrogenase C-Reactive Protein Albumin Triglycerides Arterial Blood Glucose Arterial Blood Ionized Calcium Urine Creatinine Coronavirus (PCR) Crossmatch 02/11/21 02/11/21 02/11/21 09:00 09:00 13:18 WBC RBC Hgb Hct MCV MCH MCHC RDW Plt Count Lymph % (Auto) Lymph # (Auto) Seg Neutrophils % Seg Neuts % (Manual) Lymphocytes % (Manual) Monocytes % (Manual) Nucleated RBC % Seg Neutrophils # Seg Neutrophils # Man Lymphocytes # (Manual) Monocytes # (Manual) Eosinophils # (Manual) INR D-Dimer ABG pH POC ABG pCO2 POC ABG pO2 ABG pO2 ABG HCO3 ABG O2 Saturation ABG Base Excess ABG Hemoglobin ABG Oxyhemoglobin ABG Sodium ABG Potassium ABG Chloride ABG Glucose Oxyhemoglobin Carboxyhemoglobin Sodium Potassium Chloride Carbon Dioxide BUN Creatinine Glucose 126 H POC Glucose 160 H Hemoglobin A1c Lactic Acid Calcium Phosphorus Magnesium Ferritin 1253.0 H Total Bilirubin AST ALT Lactate Dehydrogenase 649 H C-Reactive Protein 12.60 H Albumin Triglycerides Arterial Blood Glucose Arterial Blood Ionized Calcium Urine Creatinine Coronavirus (PCR) Crossmatch 02/11/21 02/11/21 02/11/21 14:30 16:59 22:34 WBC RBC Hgb 7.1 L 6.7 L Hct 20.5 L 19.9 L* MCV MCH MCHC RDW Plt Count Lymph % (Auto) Lymph # (Auto) Seg Neutrophils % Seg Neuts % (Manual) Lymphocytes % (Manual) Monocytes % (Manual) Nucleated RBC % Seg Neutrophils # Seg Neutrophils # Man Lymphocytes # (Manual) Monocytes # (Manual) Eosinophils # (Manual) INR D-Dimer ABG pH POC ABG pCO2 POC ABG pO2 ABG pO2 ABG HCO3 ABG O2 Saturation ABG Base Excess ABG Hemoglobin ABG Oxyhemoglobin ABG Sodium ABG Potassium ABG Chloride ABG Glucose Oxyhemoglobin Carboxyhemoglobin Sodium Potassium Chloride Carbon Dioxide BUN Creatinine Glucose POC Glucose 151 H Hemoglobin A1c Lactic Acid Calcium Phosphorus Magnesium Ferritin Total Bilirubin AST ALT Lactate Dehydrogenase C-Reactive Protein Albumin Triglycerides Arterial Blood Glucose Arterial Blood Ionized Calcium Urine Creatinine Coronavirus (PCR) Crossmatch 02/11/21 02/12/21 02/12/21 23:42 04:41 05:19 WBC RBC Hgb Hct MCV MCH MCHC RDW Plt Count Lymph % (Auto) Lymph # (Auto) Seg Neutrophils % Seg Neuts % (Manual) Lymphocytes % (Manual) Monocytes % (Manual) Nucleated RBC % Seg Neutrophils # Seg Neutrophils # Man Lymphocytes # (Manual) Monocytes # (Manual) Eosinophils # (Manual) INR D-Dimer ABG pH POC ABG pCO2 POC ABG pO2 ABG pO2 69.0 L ABG HCO3 32.5 H ABG O2 Saturation ABG Base Excess 7.7 H ABG Hemoglobin 5.1 L ABG Oxyhemoglobin ABG Sodium ABG Potassium ABG Chloride ABG Glucose Oxyhemoglobin 94.7 L Carboxyhemoglobin Sodium Potassium Chloride Carbon Dioxide BUN Creatinine Glucose POC Glucose 165 H 153 H Hemoglobin A1c Lactic Acid Calcium Phosphorus Magnesium Ferritin Total Bilirubin AST ALT Lactate Dehydrogenase C-Reactive Protein Albumin Triglycerides Arterial Blood Glucose Arterial Blood Ionized Calcium Urine Creatinine Coronavirus (PCR) Crossmatch 02/12/21 02/12/21 02/12/21 06:35 06:35 08:40 WBC RBC 2.21 L Hgb 7.2 L Hct 20.7 L MCV MCH 33 H MCHC 35 H RDW Plt Count Lymph % (Auto) Lymph # (Auto) Seg Neutrophils % Seg Neuts % (Manual) Lymphocytes % (Manual) Monocytes % (Manual) Nucleated RBC % Seg Neutrophils # Seg Neutrophils # Man Lymphocytes # (Manual) Monocytes # (Manual) Eosinophils # (Manual) INR D-Dimer ABG pH POC ABG pCO2 POC ABG pO2 ABG pO2 ABG HCO3 ABG O2 Saturation ABG Base Excess ABG Hemoglobin ABG Oxyhemoglobin ABG Sodium ABG Potassium ABG Chloride ABG Glucose Oxyhemoglobin Carboxyhemoglobin Sodium 135 L Potassium 3.4 L Chloride 91.8 L Carbon Dioxide 36 H BUN 57 H Creatinine 6.8 H Glucose 163 H POC Glucose Hemoglobin A1c Lactic Acid Calcium 7.0 L Phosphorus Magnesium 1.60 L Ferritin Total Bilirubin AST ALT Lactate Dehydrogenase C-Reactive Protein Albumin Triglycerides Arterial Blood Glucose Arterial Blood Ionized Calcium Urine Creatinine Coronavirus (PCR) Crossmatch 02/12/21 02/12/21 02/12/21 10:45 12:04 17:19 WBC RBC Hgb Hct MCV MCH MCHC RDW Plt Count Lymph % (Auto) Lymph # (Auto) Seg Neutrophils % Seg Neuts % (Manual) Lymphocytes % (Manual) Monocytes % (Manual) Nucleated RBC % Seg Neutrophils # Seg Neutrophils # Man Lymphocytes # (Manual) Monocytes # (Manual) Eosinophils # (Manual) INR D-Dimer ABG pH POC ABG pCO2 POC ABG pO2 ABG pO2 ABG HCO3 ABG O2 Saturation ABG Base Excess ABG Hemoglobin ABG Oxyhemoglobin ABG Sodium ABG Potassium ABG Chloride ABG Glucose Oxyhemoglobin Carboxyhemoglobin Sodium Potassium Chloride Carbon Dioxide BUN Creatinine Glucose POC Glucose 165 H 165 H Hemoglobin A1c Lactic Acid Calcium Phosphorus Magnesium Ferritin Total Bilirubin AST ALT Lactate Dehydrogenase C-Reactive Protein Albumin Triglycerides 182 H Arterial Blood Glucose Arterial Blood Ionized Calcium Urine Creatinine Coronavirus (PCR) Crossmatch 02/12/21 02/13/21 02/13/21 23:18 05:00 05:36 WBC RBC Hgb Hct MCV MCH MCHC RDW Plt Count Lymph % (Auto) Lymph # (Auto) Seg Neutrophils % Seg Neuts % (Manual) Lymphocytes % (Manual) Monocytes % (Manual) Nucleated RBC % Seg Neutrophils # Seg Neutrophils # Man Lymphocytes # (Manual) Monocytes # (Manual) Eosinophils # (Manual) INR D-Dimer ABG pH POC ABG pCO2 60.8 H POC ABG pO2 76.4 L ABG pO2 ABG HCO3 ABG O2 Saturation ABG Base Excess ABG Hemoglobin 7.4 L ABG Oxyhemoglobin ABG Sodium 133.2 L ABG Potassium 3.3 L ABG Chloride 96.0 L ABG Glucose 168 H Oxyhemoglobin Carboxyhemoglobin Sodium Potassium Chloride Carbon Dioxide BUN Creatinine Glucose POC Glucose 163 H 151 H Hemoglobin A1c Lactic Acid Calcium Phosphorus Magnesium Ferritin Total Bilirubin AST ALT Lactate Dehydrogenase C-Reactive Protein Albumin Triglycerides Arterial Blood Glucose 168 H Arterial Blood Ionized Calcium 4.3 L Urine Creatinine Coronavirus (PCR) Crossmatch 02/13/21 02/13/21 02/13/21 06:40 06:40 06:40 WBC RBC 2.19 L Hgb 7.0 L Hct 20.8 L MCV 95 H MCH MCHC RDW Plt Count Lymph % (Auto) Lymph # (Auto) Seg Neutrophils % Seg Neuts % (Manual) Lymphocytes % (Manual) Monocytes % (Manual) Nucleated RBC % Seg Neutrophils # Seg Neutrophils # Man Lymphocytes # (Manual) Monocytes # (Manual) Eosinophils # (Manual) INR D-Dimer ABG pH POC ABG pCO2 POC ABG pO2 ABG pO2 ABG HCO3 ABG O2 Saturation ABG Base Excess ABG Hemoglobin ABG Oxyhemoglobin ABG Sodium ABG Potassium ABG Chloride ABG Glucose Oxyhemoglobin Carboxyhemoglobin Sodium 135 L Potassium 3.4 L Chloride 93.0 L Carbon Dioxide 32 H BUN 46 H Creatinine 5.8 H Glucose 148 H POC Glucose Hemoglobin A1c Lactic Acid Calcium 7.9 L Phosphorus Magnesium Ferritin Total Bilirubin AST ALT Lactate Dehydrogenase C-Reactive Protein 16.80 H Albumin Triglycerides Arterial Blood Glucose Arterial Blood Ionized Calcium Urine Creatinine Coronavirus (PCR) Crossmatch 02/13/21 02/13/21 02/13/21 06:40 07:38 07:38 WBC RBC Hgb Hct MCV MCH MCHC RDW Plt Count Lymph % (Auto) Lymph # (Auto) Seg Neutrophils % Seg Neuts % (Manual) Lymphocytes % (Manual) Monocytes % (Manual) Nucleated RBC % Seg Neutrophils # Seg Neutrophils # Man Lymphocytes # (Manual) Monocytes # (Manual) Eosinophils # (Manual) INR D-Dimer 1722.16 H ABG pH POC ABG pCO2 POC ABG pO2 ABG pO2 ABG HCO3 ABG O2 Saturation ABG Base Excess ABG Hemoglobin ABG Oxyhemoglobin ABG Sodium ABG Potassium ABG Chloride ABG Glucose Oxyhemoglobin Carboxyhemoglobin Sodium Potassium Chloride Carbon Dioxide BUN Creatinine Glucose POC Glucose Hemoglobin A1c Lactic Acid Calcium Phosphorus Magnesium 1.60 L Ferritin 976.5 H Total Bilirubin AST ALT Lactate Dehydrogenase C-Reactive Protein Albumin Triglycerides Arterial Blood Glucose Arterial Blood Ionized Calcium Urine Creatinine Coronavirus (PCR) Crossmatch 02/13/21 02/13/21 02/13/21 12:24 16:57 23:32 WBC RBC Hgb Hct MCV MCH MCHC RDW Plt Count Lymph % (Auto) Lymph # (Auto) Seg Neutrophils % Seg Neuts % (Manual) Lymphocytes % (Manual) Monocytes % (Manual) Nucleated RBC % Seg Neutrophils # Seg Neutrophils # Man Lymphocytes # (Manual) Monocytes # (Manual) Eosinophils # (Manual) INR D-Dimer ABG pH POC ABG pCO2 POC ABG pO2 ABG pO2 ABG HCO3 ABG O2 Saturation ABG Base Excess ABG Hemoglobin ABG Oxyhemoglobin ABG Sodium ABG Potassium ABG Chloride ABG Glucose Oxyhemoglobin Carboxyhemoglobin Sodium Potassium Chloride Carbon Dioxide BUN Creatinine Glucose POC Glucose 141 H 156 H 161 H Hemoglobin A1c Lactic Acid Calcium Phosphorus Magnesium Ferritin Total Bilirubin AST ALT Lactate Dehydrogenase C-Reactive Protein Albumin Triglycerides Arterial Blood Glucose Arterial Blood Ionized Calcium Urine Creatinine Coronavirus (PCR) Crossmatch 02/14/21 02/14/21 02/14/21 04:00 05:41 11:00 WBC RBC 2.14 L Hgb 6.9 L Hct 20.7 L MCV 97 H MCH 33 H MCHC RDW Plt Count Lymph % (Auto) Lymph # (Auto) Seg Neutrophils % Seg Neuts % (Manual) Lymphocytes % (Manual) Monocytes % (Manual) Nucleated RBC % Seg Neutrophils # Seg Neutrophils # Man Lymphocytes # (Manual) Monocytes # (Manual) Eosinophils # (Manual) INR D-Dimer ABG pH POC ABG pCO2 POC ABG pO2 ABG pO2 ABG HCO3 ABG O2 Saturation ABG Base Excess ABG Hemoglobin ABG Oxyhemoglobin ABG Sodium ABG Potassium ABG Chloride ABG Glucose Oxyhemoglobin Carboxyhemoglobin Sodium Potassium Chloride Carbon Dioxide BUN Creatinine Glucose POC Glucose 143 H Hemoglobin A1c Lactic Acid Calcium Phosphorus Magnesium Ferritin Total Bilirubin AST ALT Lactate Dehydrogenase C-Reactive Protein Albumin Triglycerides Arterial Blood Glucose Arterial Blood Ionized Calcium Urine Creatinine Coronavirus (PCR) Crossmatch See Detail 02/14/21 02/14/21 02/14/21 11:51 18:08 23:41 WBC RBC Hgb Hct MCV MCH MCHC RDW Plt Count Lymph % (Auto) Lymph # (Auto) Seg Neutrophils % Seg Neuts % (Manual) Lymphocytes % (Manual) Monocytes % (Manual) Nucleated RBC % Seg Neutrophils # Seg Neutrophils # Man Lymphocytes # (Manual) Monocytes # (Manual) Eosinophils # (Manual) INR D-Dimer ABG pH POC ABG pCO2 POC ABG pO2 ABG pO2 ABG HCO3 ABG O2 Saturation ABG Base Excess ABG Hemoglobin ABG Oxyhemoglobin ABG Sodium ABG Potassium ABG Chloride ABG Glucose Oxyhemoglobin Carboxyhemoglobin Sodium Potassium Chloride Carbon Dioxide BUN Creatinine Glucose POC Glucose 113 H 123 H 120 H Hemoglobin A1c Lactic Acid Calcium Phosphorus Magnesium Ferritin Total Bilirubin AST ALT Lactate Dehydrogenase C-Reactive Protein Albumin Triglycerides Arterial Blood Glucose Arterial Blood Ionized Calcium Urine Creatinine Coronavirus (PCR) Crossmatch 02/14/21 02/15/21 02/15/21 Unknown 05:00 05:00 WBC RBC Hgb Hct MCV MCH MCHC RDW Plt Count Lymph % (Auto) Lymph # (Auto) Seg Neutrophils % Seg Neuts % (Manual) Lymphocytes % (Manual) Monocytes % (Manual) Nucleated RBC % Seg Neutrophils # Seg Neutrophils # Man Lymphocytes # (Manual) Monocytes # (Manual) Eosinophils # (Manual) INR D-Dimer ABG pH POC ABG pCO2 53.4 H POC ABG pO2 61.8 L ABG pO2 ABG HCO3 ABG O2 Saturation ABG Base Excess ABG Hemoglobin 7.7 L ABG Oxyhemoglobin 88.8 L ABG Sodium ABG Potassium ABG Chloride ABG Glucose 143 H Oxyhemoglobin Carboxyhemoglobin 1.6 H Sodium Potassium Chloride 96.9 L Carbon Dioxide 33 H 31 H BUN 40 H 38 H Creatinine 5.2 H 4.8 H Glucose 152 H 132 H POC Glucose Hemoglobin A1c Lactic Acid Calcium 7.9 L Phosphorus Magnesium Ferritin Total Bilirubin AST ALT Lactate Dehydrogenase C-Reactive Protein Albumin Triglycerides Arterial Blood Glucose 143 H Arterial Blood Ionized Calcium Urine Creatinine Coronavirus (PCR) Crossmatch 02/15/21 02/15/21 02/15/21 05:00 05:27 12:05 WBC RBC 2.30 L Hgb 7.1 L Hct 22.1 L MCV 96 H MCH MCHC RDW 15.7 H Plt Count Lymph % (Auto) 11.0 L Lymph # (Auto) 1.1 L Seg Neutrophils % 83.0 H Seg Neuts % (Manual) Lymphocytes % (Manual) Monocytes % (Manual) Nucleated RBC % Seg Neutrophils # 8.6 H Seg Neutrophils # Man Lymphocytes # (Manual) Monocytes # (Manual) Eosinophils # (Manual) INR D-Dimer ABG pH POC ABG pCO2 POC ABG pO2 ABG pO2 ABG HCO3 ABG O2 Saturation ABG Base Excess ABG Hemoglobin ABG Oxyhemoglobin ABG Sodium ABG Potassium ABG Chloride ABG Glucose Oxyhemoglobin Carboxyhemoglobin Sodium Potassium Chloride Carbon Dioxide BUN Creatinine Glucose POC Glucose 133 H 123 H Hemoglobin A1c Lactic Acid Calcium Phosphorus Magnesium Ferritin Total Bilirubin AST ALT Lactate Dehydrogenase C-Reactive Protein Albumin Triglycerides Arterial Blood Glucose Arterial Blood Ionized Calcium Urine Creatinine Coronavirus (PCR) Crossmatch 02/15/21 02/15/21 02/16/21 17:08 23:52 03:44 WBC RBC Hgb Hct MCV MCH MCHC RDW Plt Count Lymph % (Auto) Lymph # (Auto) Seg Neutrophils % Seg Neuts % (Manual) Lymphocytes % (Manual) Monocytes % (Manual) Nucleated RBC % Seg Neutrophils # Seg Neutrophils # Man Lymphocytes # (Manual) Monocytes # (Manual) Eosinophils # (Manual) INR D-Dimer ABG pH 7.307 L POC ABG pCO2 59.5 H POC ABG pO2 63.2 L ABG pO2 ABG HCO3 ABG O2 Saturation ABG Base Excess ABG Hemoglobin 9.3 L ABG Oxyhemoglobin ABG Sodium ABG Potassium ABG Chloride ABG Glucose 148 H Oxyhemoglobin Carboxyhemoglobin Sodium Potassium Chloride Carbon Dioxide BUN Creatinine Glucose POC Glucose 129 H 136 H Hemoglobin A1c Lactic Acid Calcium Phosphorus Magnesium Ferritin Total Bilirubin AST ALT Lactate Dehydrogenase C-Reactive Protein Albumin Triglycerides Arterial Blood Glucose 148 H Arterial Blood Ionized Calcium Urine Creatinine Coronavirus (PCR) Crossmatch 02/16/21 02/16/21 02/16/21 05:26 06:00 12:14 WBC RBC Hgb Hct MCV MCH MCHC RDW Plt Count Lymph % (Auto) Lymph # (Auto) Seg Neutrophils % Seg Neuts % (Manual) Lymphocytes % (Manual) Monocytes % (Manual) Nucleated RBC % Seg Neutrophils # Seg Neutrophils # Man Lymphocytes # (Manual) Monocytes # (Manual) Eosinophils # (Manual) INR D-Dimer ABG pH POC ABG pCO2 POC ABG pO2 ABG pO2 ABG HCO3 ABG O2 Saturation ABG Base Excess ABG Hemoglobin ABG Oxyhemoglobin ABG Sodium ABG Potassium ABG Chloride ABG Glucose Oxyhemoglobin Carboxyhemoglobin Sodium Potassium Chloride Carbon Dioxide BUN 52 H Creatinine 6.0 H Glucose 138 H POC Glucose 135 H 128 H Hemoglobin A1c Lactic Acid Calcium Phosphorus Magnesium Ferritin Total Bilirubin AST ALT Lactate Dehydrogenase C-Reactive Protein Albumin Triglycerides Arterial Blood Glucose Arterial Blood Ionized Calcium Urine Creatinine Coronavirus (PCR) Crossmatch 02/16/21 02/16/21 02/16/21 17:09 17:09 17:09 WBC RBC Hgb Hct MCV MCH MCHC RDW Plt Count Lymph % (Auto) Lymph # (Auto) Seg Neutrophils % Seg Neuts % (Manual) Lymphocytes % (Manual) Monocytes % (Manual) Nucleated RBC % Seg Neutrophils # Seg Neutrophils # Man Lymphocytes # (Manual) Monocytes # (Manual) Eosinophils # (Manual) INR D-Dimer 4256.08 H ABG pH POC ABG pCO2 POC ABG pO2 ABG pO2 ABG HCO3 ABG O2 Saturation ABG Base Excess ABG Hemoglobin ABG Oxyhemoglobin ABG Sodium ABG Potassium ABG Chloride ABG Glucose Oxyhemoglobin Carboxyhemoglobin Sodium Potassium Chloride Carbon Dioxide BUN Creatinine Glucose POC Glucose Hemoglobin A1c Lactic Acid Calcium Phosphorus Magnesium Ferritin 980.6 H Total Bilirubin AST ALT Lactate Dehydrogenase 441 H C-Reactive Protein 20.20 H Albumin Triglycerides Arterial Blood Glucose Arterial Blood Ionized Calcium Urine Creatinine Coronavirus (PCR) Crossmatch 02/16/21 02/16/21 02/16/21 17:25 23:16 Unknown WBC RBC 2.19 L Hgb 7.1 L Hct 21.3 L MCV 98 H MCH 33 H MCHC RDW 16.0 H Plt Count Lymph % (Auto) Lymph # (Auto) Seg Neutrophils % Seg Neuts % (Manual) 85.0 H Lymphocytes % (Manual) 6.0 L Monocytes % (Manual) Nucleated RBC % 4.0 H Seg Neutrophils # Seg Neutrophils # Man Lymphocytes # (Manual) 0.5 L Monocytes # (Manual) Eosinophils # (Manual) INR D-Dimer ABG pH POC ABG pCO2 POC ABG pO2 ABG pO2 ABG HCO3 ABG O2 Saturation ABG Base Excess ABG Hemoglobin ABG Oxyhemoglobin ABG Sodium ABG Potassium ABG Chloride ABG Glucose Oxyhemoglobin Carboxyhemoglobin Sodium Potassium Chloride Carbon Dioxide BUN Creatinine Glucose POC Glucose 146 H 150 H Hemoglobin A1c Lactic Acid Calcium Phosphorus Magnesium Ferritin Total Bilirubin AST ALT Lactate Dehydrogenase C-Reactive Protein Albumin Triglycerides Arterial Blood Glucose Arterial Blood Ionized Calcium Urine Creatinine Coronavirus (PCR) Crossmatch 02/17/21 02/17/21 02/17/21 04:00 04:14 04:14 WBC RBC Hgb Hct MCV MCH MCHC RDW Plt Count Lymph % (Auto) Lymph # (Auto) Seg Neutrophils % Seg Neuts % (Manual) Lymphocytes % (Manual) Monocytes % (Manual) Nucleated RBC % Seg Neutrophils # Seg Neutrophils # Man Lymphocytes # (Manual) Monocytes # (Manual) Eosinophils # (Manual) INR D-Dimer 3183.35 H ABG pH 7.293 L POC ABG pCO2 59.5 H POC ABG pO2 68.1 L ABG pO2 ABG HCO3 ABG O2 Saturation ABG Base Excess ABG Hemoglobin 7.7 L ABG Oxyhemoglobin ABG Sodium 133.4 L ABG Potassium ABG Chloride ABG Glucose 143 H Oxyhemoglobin Carboxyhemoglobin Sodium 136 L Potassium Chloride 97.3 L Carbon Dioxide BUN 49 H Creatinine 5.3 H Glucose 139 H POC Glucose Hemoglobin A1c Lactic Acid Calcium Phosphorus Magnesium Ferritin Total Bilirubin AST ALT Lactate Dehydrogenase C-Reactive Protein Albumin Triglycerides Arterial Blood Glucose 143 H Arterial Blood Ionized Calcium Urine Creatinine Coronavirus (PCR) Crossmatch 02/17/21 02/17/21 02/17/21 04:14 04:14 04:14 WBC RBC 2.14 L Hgb 6.9 L Hct 21.0 L MCV 98 H MCH MCHC RDW 15.8 H Plt Count Lymph % (Auto) Lymph # (Auto) Seg Neutrophils % Seg Neuts % (Manual) Lymphocytes % (Manual) Monocytes % (Manual) Nucleated RBC % Seg Neutrophils # Seg Neutrophils # Man Lymphocytes # (Manual) Monocytes # (Manual) Eosinophils # (Manual) INR D-Dimer ABG pH POC ABG pCO2 POC ABG pO2 ABG pO2 ABG HCO3 ABG O2 Saturation ABG Base Excess ABG Hemoglobin ABG Oxyhemoglobin ABG Sodium ABG Potassium ABG Chloride ABG Glucose Oxyhemoglobin Carboxyhemoglobin Sodium Potassium Chloride Carbon Dioxide BUN Creatinine Glucose POC Glucose Hemoglobin A1c Lactic Acid Calcium Phosphorus Magnesium Ferritin 894.0 H Total Bilirubin AST ALT Lactate Dehydrogenase 399 H C-Reactive Protein 22.10 H Albumin Triglycerides Arterial Blood Glucose Arterial Blood Ionized Calcium Urine Creatinine Coronavirus (PCR) Crossmatch 02/17/21 02/17/21 02/17/21 06:06 07:45 12:25 WBC RBC Hgb 7.6 L Hct 22.8 L MCV MCH MCHC RDW Plt Count Lymph % (Auto) Lymph # (Auto) Seg Neutrophils % Seg Neuts % (Manual) Lymphocytes % (Manual) Monocytes % (Manual) Nucleated RBC % Seg Neutrophils # Seg Neutrophils # Man Lymphocytes # (Manual) Monocytes # (Manual) Eosinophils # (Manual) INR D-Dimer ABG pH POC ABG pCO2 POC ABG pO2 ABG pO2 ABG HCO3 ABG O2 Saturation ABG Base Excess ABG Hemoglobin ABG Oxyhemoglobin ABG Sodium ABG Potassium ABG Chloride ABG Glucose Oxyhemoglobin Carboxyhemoglobin Sodium Potassium Chloride Carbon Dioxide BUN Creatinine Glucose POC Glucose 134 H Hemoglobin A1c Lactic Acid Calcium Phosphorus Magnesium Ferritin Total Bilirubin AST ALT Lactate Dehydrogenase C-Reactive Protein Albumin Triglycerides Arterial Blood Glucose Arterial Blood Ionized Calcium Urine Creatinine Coronavirus (PCR) Crossmatch See Detail 02/17/21 02/17/21 02/17/21 12:35 17:56 23:34 WBC RBC Hgb Hct MCV MCH MCHC RDW Plt Count Lymph % (Auto) Lymph # (Auto) Seg Neutrophils % Seg Neuts % (Manual) Lymphocytes % (Manual) Monocytes % (Manual) Nucleated RBC % Seg Neutrophils # Seg Neutrophils # Man Lymphocytes # (Manual) Monocytes # (Manual) Eosinophils # (Manual) INR D-Dimer ABG pH POC ABG pCO2 POC ABG pO2 ABG pO2 ABG HCO3 ABG O2 Saturation ABG Base Excess ABG Hemoglobin ABG Oxyhemoglobin ABG Sodium ABG Potassium ABG Chloride ABG Glucose Oxyhemoglobin Carboxyhemoglobin Sodium Potassium Chloride Carbon Dioxide BUN Creatinine Glucose POC Glucose 114 H 128 H 120 H Hemoglobin A1c Lactic Acid Calcium Phosphorus Magnesium Ferritin Total Bilirubin AST ALT Lactate Dehydrogenase C-Reactive Protein Albumin Triglycerides Arterial Blood Glucose Arterial Blood Ionized Calcium Urine Creatinine Coronavirus (PCR) Crossmatch 02/18/21 02/18/21 02/18/21 04:03 04:55 05:02 WBC RBC 2.40 L Hgb 7.5 L Hct 23.1 L MCV 96 H MCH MCHC RDW 16.8 H Plt Count Lymph % (Auto) Lymph # (Auto) Seg Neutrophils % Seg Neuts % (Manual) Lymphocytes % (Manual) Monocytes % (Manual) Nucleated RBC % Seg Neutrophils # Seg Neutrophils # Man Lymphocytes # (Manual) Monocytes # (Manual) Eosinophils # (Manual) INR D-Dimer ABG pH 7.219 L POC ABG pCO2 58.7 H POC ABG pO2 64.2 L ABG pO2 ABG HCO3 ABG O2 Saturation ABG Base Excess ABG Hemoglobin ABG Oxyhemoglobin ABG Sodium 130.5 L ABG Potassium ABG Chloride ABG Glucose 147 H Oxyhemoglobin Carboxyhemoglobin Sodium 134 L Potassium Chloride 97.9 L Carbon Dioxide BUN 64 H Creatinine 6.5 H Glucose 135 H POC Glucose Hemoglobin A1c Lactic Acid Calcium 8.0 L Phosphorus Magnesium Ferritin Total Bilirubin AST ALT Lactate Dehydrogenase C-Reactive Protein Albumin Triglycerides Arterial Blood Glucose 147 H Arterial Blood Ionized Calcium Urine Creatinine Coronavirus (PCR) Crossmatch 02/18/21 02/18/21 02/18/21 05:27 10:00 11:51 WBC RBC Hgb Hct MCV MCH MCHC RDW Plt Count Lymph % (Auto) Lymph # (Auto) Seg Neutrophils % Seg Neuts % (Manual) Lymphocytes % (Manual) Monocytes % (Manual) Nucleated RBC % Seg Neutrophils # Seg Neutrophils # Man Lymphocytes # (Manual) Monocytes # (Manual) Eosinophils # (Manual) INR D-Dimer ABG pH POC ABG pCO2 POC ABG pO2 ABG pO2 ABG HCO3 ABG O2 Saturation ABG Base Excess ABG Hemoglobin ABG Oxyhemoglobin ABG Sodium ABG Potassium ABG Chloride ABG Glucose Oxyhemoglobin Carboxyhemoglobin Sodium Potassium Chloride Carbon Dioxide BUN Creatinine Glucose POC Glucose 130 H 123 H Hemoglobin A1c Lactic Acid Calcium Phosphorus Magnesium Ferritin Total Bilirubin AST ALT Lactate Dehydrogenase C-Reactive Protein Albumin Triglycerides Arterial Blood Glucose Arterial Blood Ionized Calcium Urine Creatinine Coronavirus (PCR) Positive A Crossmatch 02/18/21 02/18/21 02/19/21 18:10 23:35 05:00 WBC RBC Hgb Hct MCV MCH MCHC RDW Plt Count Lymph % (Auto) Lymph # (Auto) Seg Neutrophils % Seg Neuts % (Manual) Lymphocytes % (Manual) Monocytes % (Manual) Nucleated RBC % Seg Neutrophils # Seg Neutrophils # Man Lymphocytes # (Manual) Monocytes # (Manual) Eosinophils # (Manual) INR D-Dimer ABG pH 7.232 L POC ABG pCO2 64.3 H POC ABG pO2 ABG pO2 ABG HCO3 ABG O2 Saturation ABG Base Excess ABG Hemoglobin 8.1 L ABG Oxyhemoglobin ABG Sodium 133.5 L ABG Potassium ABG Chloride ABG Glucose 148 H Oxyhemoglobin Carboxyhemoglobin 1.6 H Sodium Potassium Chloride Carbon Dioxide BUN Creatinine Glucose POC Glucose 123 H 137 H Hemoglobin A1c Lactic Acid Calcium Phosphorus Magnesium Ferritin Total Bilirubin AST ALT Lactate Dehydrogenase C-Reactive Protein Albumin Triglycerides Arterial Blood Glucose 148 H Arterial Blood Ionized Calcium Urine Creatinine Coronavirus (PCR) Crossmatch 02/19/21 02/19/21 02/19/21 05:12 05:45 05:45 WBC RBC Hgb Hct MCV MCH MCHC RDW Plt Count Lymph % (Auto) Lymph # (Auto) Seg Neutrophils % Seg Neuts % (Manual) Lymphocytes % (Manual) Monocytes % (Manual) Nucleated RBC % Seg Neutrophils # Seg Neutrophils # Man Lymphocytes # (Manual) Monocytes # (Manual) Eosinophils # (Manual) INR D-Dimer 4840.82 H ABG pH POC ABG pCO2 POC ABG pO2 ABG pO2 ABG HCO3 ABG O2 Saturation ABG Base Excess ABG Hemoglobin ABG Oxyhemoglobin ABG Sodium ABG Potassium ABG Chloride ABG Glucose Oxyhemoglobin Carboxyhemoglobin Sodium 135 L Potassium Chloride 97.8 L Carbon Dioxide BUN 58 H Creatinine 5.6 H Glucose 140 H POC Glucose 134 H Hemoglobin A1c Lactic Acid Calcium Phosphorus Magnesium Ferritin Total Bilirubin AST ALT Lactate Dehydrogenase 345 H C-Reactive Protein 15.20 H Albumin Triglycerides 195 H Arterial Blood Glucose Arterial Blood Ionized Calcium Urine Creatinine Coronavirus (PCR) Crossmatch 02/19/21 02/19/21 02/19/21 05:45 12:00 17:48 WBC RBC Hgb Hct MCV MCH MCHC RDW Plt Count Lymph % (Auto) Lymph # (Auto) Seg Neutrophils % Seg Neuts % (Manual) Lymphocytes % (Manual) Monocytes % (Manual) Nucleated RBC % Seg Neutrophils # Seg Neutrophils # Man Lymphocytes # (Manual) Monocytes # (Manual) Eosinophils # (Manual) INR D-Dimer ABG pH POC ABG pCO2 POC ABG pO2 ABG pO2 ABG HCO3 ABG O2 Saturation ABG Base Excess ABG Hemoglobin ABG Oxyhemoglobin ABG Sodium ABG Potassium ABG Chloride ABG Glucose Oxyhemoglobin Carboxyhemoglobin Sodium Potassium Chloride Carbon Dioxide BUN Creatinine Glucose POC Glucose 122 H 119 H Hemoglobin A1c Lactic Acid Calcium Phosphorus Magnesium Ferritin 951.8 H Total Bilirubin AST ALT Lactate Dehydrogenase C-Reactive Protein Albumin Triglycerides Arterial Blood Glucose Arterial Blood Ionized Calcium Urine Creatinine Coronavirus (PCR) Crossmatch 02/20/21 02/20/21 02/20/21 03:20 04:00 11:48 WBC RBC Hgb Hct MCV MCH MCHC RDW Plt Count Lymph % (Auto) Lymph # (Auto) Seg Neutrophils % Seg Neuts % (Manual) Lymphocytes % (Manual) Monocytes % (Manual) Nucleated RBC % Seg Neutrophils # Seg Neutrophils # Man Lymphocytes # (Manual) Monocytes # (Manual) Eosinophils # (Manual) INR D-Dimer ABG pH 7.276 L POC ABG pCO2 57.3 H POC ABG pO2 71.0 L ABG pO2 ABG HCO3 ABG O2 Saturation ABG Base Excess ABG Hemoglobin 8.2 L ABG Oxyhemoglobin 91.9 L ABG Sodium 128.1 L ABG Potassium 4.8 H ABG Chloride ABG Glucose Oxyhemoglobin Carboxyhemoglobin 1.6 H Sodium 136 L Potassium Chloride Carbon Dioxide BUN 69 H Creatinine 6.4 H Glucose POC Glucose 131 H Hemoglobin A1c Lactic Acid Calcium 8.1 L Phosphorus Magnesium Ferritin Total Bilirubin AST ALT Lactate Dehydrogenase C-Reactive Protein Albumin Triglycerides Arterial Blood Glucose Arterial Blood Ionized Calcium 4.5 L Urine Creatinine Coronavirus (PCR) Crossmatch 02/20/21 02/20/21 02/21/21 18:05 23:28 02:53 WBC RBC Hgb Hct MCV MCH MCHC RDW Plt Count Lymph % (Auto) Lymph # (Auto) Seg Neutrophils % Seg Neuts % (Manual) Lymphocytes % (Manual) Monocytes % (Manual) Nucleated RBC % Seg Neutrophils # Seg Neutrophils # Man Lymphocytes # (Manual) Monocytes # (Manual) Eosinophils # (Manual) INR D-Dimer ABG pH 7.288 L POC ABG pCO2 52.7 H POC ABG pO2 81.5 L ABG pO2 ABG HCO3 ABG O2 Saturation ABG Base Excess ABG Hemoglobin 8.5 L ABG Oxyhemoglobin 93.6 L ABG Sodium 132.5 L ABG Potassium 4.6 H ABG Chloride ABG Glucose 106 H Oxyhemoglobin Carboxyhemoglobin 1.6 H Sodium Potassium Chloride Carbon Dioxide BUN Creatinine Glucose POC Glucose 114 H 118 H Hemoglobin A1c Lactic Acid Calcium Phosphorus Magnesium Ferritin Total Bilirubin AST ALT Lactate Dehydrogenase C-Reactive Protein Albumin Triglycerides Arterial Blood Glucose 106 H Arterial Blood Ionized Calcium 4.4 L Urine Creatinine Coronavirus (PCR) Crossmatch 02/21/21 02/21/21 02/21/21 05:29 11:42 16:35 WBC RBC Hgb Hct MCV MCH MCHC RDW Plt Count Lymph % (Auto) Lymph # (Auto) Seg Neutrophils % Seg Neuts % (Manual) Lymphocytes % (Manual) Monocytes % (Manual) Nucleated RBC % Seg Neutrophils # Seg Neutrophils # Man Lymphocytes # (Manual) Monocytes # (Manual) Eosinophils # (Manual) INR D-Dimer ABG pH POC ABG pCO2 POC ABG pO2 ABG pO2 ABG HCO3 ABG O2 Saturation ABG Base Excess ABG Hemoglobin ABG Oxyhemoglobin ABG Sodium ABG Potassium ABG Chloride ABG Glucose Oxyhemoglobin Carboxyhemoglobin Sodium Potassium 5.6 H Chloride 97.6 L Carbon Dioxide BUN 68 H Creatinine 5.7 H Glucose 160 H POC Glucose 111 H 131 H Hemoglobin A1c Lactic Acid Calcium 8.0 L Phosphorus 7.90 H Magnesium 2.60 H Ferritin Total Bilirubin AST ALT Lactate Dehydrogenase C-Reactive Protein Albumin Triglycerides Arterial Blood Glucose Arterial Blood Ionized Calcium Urine Creatinine Coronavirus (PCR) Crossmatch 02/21/21 02/22/21 02/22/21 17:17 00:04 04:22 WBC RBC Hgb Hct MCV MCH MCHC RDW Plt Count Lymph % (Auto) Lymph # (Auto) Seg Neutrophils % Seg Neuts % (Manual) Lymphocytes % (Manual) Monocytes % (Manual) Nucleated RBC % Seg Neutrophils # Seg Neutrophils # Man Lymphocytes # (Manual) Monocytes # (Manual) Eosinophils # (Manual) INR D-Dimer ABG pH 7.250 L POC ABG pCO2 60.1 H POC ABG pO2 57.6 L ABG pO2 ABG HCO3 ABG O2 Saturation ABG Base Excess ABG Hemoglobin 8.8 L ABG Oxyhemoglobin 87.0 L ABG Sodium 133.4 L ABG Potassium 5.1 H ABG Chloride ABG Glucose 124 H Oxyhemoglobin Carboxyhemoglobin Sodium Potassium Chloride Carbon Dioxide BUN Creatinine Glucose POC Glucose 135 H 121 H Hemoglobin A1c Lactic Acid Calcium Phosphorus Magnesium Ferritin Total Bilirubin AST ALT Lactate Dehydrogenase C-Reactive Protein Albumin Triglycerides Arterial Blood Glucose 124 H Arterial Blood Ionized Calcium Urine Creatinine Coronavirus (PCR) Crossmatch 02/22/21 02/22/21 02/22/21 05:33 09:41 09:41 WBC 13.2 H RBC 2.35 L Hgb 7.5 L Hct 22.7 L MCV 96 H MCH MCHC RDW 17.0 H Plt Count Lymph % (Auto) Lymph # (Auto) Seg Neutrophils % Seg Neuts % (Manual) 93.0 H Lymphocytes % (Manual) 4.0 L Monocytes % (Manual) Nucleated RBC % 1.0 H Seg Neutrophils # Seg Neutrophils # Man 12.3 H Lymphocytes # (Manual) 0.5 L Monocytes # (Manual) Eosinophils # (Manual) INR D-Dimer ABG pH POC ABG pCO2 POC ABG pO2 ABG pO2 ABG HCO3 ABG O2 Saturation ABG Base Excess ABG Hemoglobin ABG Oxyhemoglobin ABG Sodium ABG Potassium ABG Chloride ABG Glucose Oxyhemoglobin Carboxyhemoglobin Sodium Potassium 5.4 H Chloride Carbon Dioxide BUN 61 H Creatinine 5.5 H Glucose 117 H POC Glucose 114 H Hemoglobin A1c Lactic Acid Calcium 8.3 L Phosphorus Magnesium Ferritin Total Bilirubin AST ALT Lactate Dehydrogenase C-Reactive Protein Albumin Triglycerides Arterial Blood Glucose Arterial Blood Ionized Calcium Urine Creatinine Coronavirus (PCR) Crossmatch 02/22/21 02/22/21 02/23/21 12:08 17:06 04:00 WBC RBC Hgb Hct MCV MCH MCHC RDW Plt Count Lymph % (Auto) Lymph # (Auto) Seg Neutrophils % Seg Neuts % (Manual) Lymphocytes % (Manual) Monocytes % (Manual) Nucleated RBC % Seg Neutrophils # Seg Neutrophils # Man Lymphocytes # (Manual) Monocytes # (Manual) Eosinophils # (Manual) INR D-Dimer ABG pH 7.246 L POC ABG pCO2 POC ABG pO2 ABG pO2 119.4 H ABG HCO3 26.6 H ABG O2 Saturation ABG Base Excess ABG Hemoglobin 8.8 L ABG Oxyhemoglobin ABG Sodium ABG Potassium ABG Chloride ABG Glucose Oxyhemoglobin Carboxyhemoglobin Sodium Potassium Chloride Carbon Dioxide BUN Creatinine Glucose POC Glucose 133 H 114 H Hemoglobin A1c Lactic Acid Calcium Phosphorus Magnesium Ferritin Total Bilirubin AST ALT Lactate Dehydrogenase C-Reactive Protein Albumin Triglycerides Arterial Blood Glucose Arterial Blood Ionized Calcium Urine Creatinine Coronavirus (PCR) Crossmatch 02/23/21 02/23/21 02/24/21 06:20 11:42 03:43 WBC RBC Hgb Hct MCV MCH MCHC RDW Plt Count Lymph % (Auto) Lymph # (Auto) Seg Neutrophils % Seg Neuts % (Manual) Lymphocytes % (Manual) Monocytes % (Manual) Nucleated RBC % Seg Neutrophils # Seg Neutrophils # Man Lymphocytes # (Manual) Monocytes # (Manual) Eosinophils # (Manual) INR D-Dimer ABG pH 7.287 L POC ABG pCO2 54.7 H POC ABG pO2 ABG pO2 ABG HCO3 ABG O2 Saturation ABG Base Excess ABG Hemoglobin 8.5 L ABG Oxyhemoglobin ABG Sodium 135.6 L ABG Potassium ABG Chloride ABG Glucose 117 H Oxyhemoglobin Carboxyhemoglobin Sodium Potassium Chloride 97.6 L Carbon Dioxide BUN 79 H Creatinine 6.2 H Glucose POC Glucose 108 H Hemoglobin A1c Lactic Acid Calcium 8.3 L Phosphorus Magnesium Ferritin Total Bilirubin AST ALT Lactate Dehydrogenase C-Reactive Protein Albumin Triglycerides Arterial Blood Glucose 117 H Arterial Blood Ionized Calcium Urine Creatinine Coronavirus (PCR) Crossmatch 02/24/21 02/24/21 02/24/21 04:25 04:25 04:25 WBC 11.5 H RBC 2.47 L Hgb 7.7 L Hct 23.5 L MCV 95 H MCH MCHC RDW 16.7 H Plt Count Lymph % (Auto) Lymph # (Auto) Seg Neutrophils % Seg Neuts % (Manual) 82.0 H Lymphocytes % (Manual) 3.0 L Monocytes % (Manual) 11.0 H Nucleated RBC % Seg Neutrophils # Seg Neutrophils # Man 9.4 H Lymphocytes # (Manual) 0.3 L Monocytes # (Manual) 1.3 H Eosinophils # (Manual) INR D-Dimer 4695.21 H ABG pH POC ABG pCO2 POC ABG pO2 ABG pO2 ABG HCO3 ABG O2 Saturation ABG Base Excess ABG Hemoglobin ABG Oxyhemoglobin ABG Sodium ABG Potassium ABG Chloride ABG Glucose Oxyhemoglobin Carboxyhemoglobin Sodium Potassium Chloride Carbon Dioxide BUN 68 H Creatinine 4.9 H Glucose 113 H POC Glucose Hemoglobin A1c Lactic Acid Calcium Phosphorus Magnesium Ferritin Total Bilirubin AST ALT Lactate Dehydrogenase C-Reactive Protein 7.20 H Albumin Triglycerides Arterial Blood Glucose Arterial Blood Ionized Calcium Urine Creatinine Coronavirus (PCR) Crossmatch 02/24/21 02/24/21 02/24/21 04:25 05:01 11:12 WBC RBC Hgb Hct MCV MCH MCHC RDW Plt Count Lymph % (Auto) Lymph # (Auto) Seg Neutrophils % Seg Neuts % (Manual) Lymphocytes % (Manual) Monocytes % (Manual) Nucleated RBC % Seg Neutrophils # Seg Neutrophils # Man Lymphocytes # (Manual) Monocytes # (Manual) Eosinophils # (Manual) INR D-Dimer ABG pH POC ABG pCO2 POC ABG pO2 ABG pO2 ABG HCO3 ABG O2 Saturation ABG Base Excess ABG Hemoglobin ABG Oxyhemoglobin ABG Sodium ABG Potassium ABG Chloride ABG Glucose Oxyhemoglobin Carboxyhemoglobin Sodium Potassium Chloride Carbon Dioxide BUN Creatinine Glucose POC Glucose 116 H 112 H Hemoglobin A1c Lactic Acid Calcium Phosphorus Magnesium Ferritin 1116.0 H Total Bilirubin AST ALT Lactate Dehydrogenase C-Reactive Protein Albumin Triglycerides Arterial Blood Glucose Arterial Blood Ionized Calcium Urine Creatinine Coronavirus (PCR) Crossmatch 02/24/21 02/25/21 02/25/21 18:11 03:42 05:58 WBC RBC Hgb Hct MCV MCH MCHC RDW Plt Count Lymph % (Auto) Lymph # (Auto) Seg Neutrophils % Seg Neuts % (Manual) Lymphocytes % (Manual) Monocytes % (Manual) Nucleated RBC % Seg Neutrophils # Seg Neutrophils # Man Lymphocytes # (Manual) Monocytes # (Manual) Eosinophils # (Manual) INR D-Dimer ABG pH 7.287 L POC ABG pCO2 58.2 H POC ABG pO2 ABG pO2 ABG HCO3 ABG O2 Saturation ABG Base Excess ABG Hemoglobin 8.4 L ABG Oxyhemoglobin 93.7 L ABG Sodium ABG Potassium ABG Chloride ABG Glucose 104 H Oxyhemoglobin Carboxyhemoglobin Sodium Potassium Chloride Carbon Dioxide BUN Creatinine Glucose POC Glucose 109 H 109 H Hemoglobin A1c Lactic Acid Calcium Phosphorus Magnesium Ferritin Total Bilirubin AST ALT Lactate Dehydrogenase C-Reactive Protein Albumin Triglycerides Arterial Blood Glucose 104 H Arterial Blood Ionized Calcium 4.5 L Urine Creatinine Coronavirus (PCR) Crossmatch 02/25/21 02/25/21 02/25/21 09:03 13:47 16:50 WBC RBC Hgb Hct MCV MCH MCHC RDW Plt Count Lymph % (Auto) Lymph # (Auto) Seg Neutrophils % Seg Neuts % (Manual) Lymphocytes % (Manual) Monocytes % (Manual) Nucleated RBC % Seg Neutrophils # Seg Neutrophils # Man Lymphocytes # (Manual) Monocytes # (Manual) Eosinophils # (Manual) INR D-Dimer 6536.84 H ABG pH POC ABG pCO2 POC ABG pO2 ABG pO2 ABG HCO3 ABG O2 Saturation ABG Base Excess ABG Hemoglobin ABG Oxyhemoglobin ABG Sodium ABG Potassium ABG Chloride ABG Glucose Oxyhemoglobin Carboxyhemoglobin Sodium Potassium Chloride Carbon Dioxide BUN Creatinine Glucose POC Glucose 144 H 114 H Hemoglobin A1c Lactic Acid Calcium Phosphorus Magnesium Ferritin Total Bilirubin AST ALT Lactate Dehydrogenase C-Reactive Protein Albumin Triglycerides Arterial Blood Glucose Arterial Blood Ionized Calcium Urine Creatinine Coronavirus (PCR) Crossmatch 02/25/21 02/26/21 02/26/21 23:53 03:35 05:36 WBC RBC Hgb Hct MCV MCH MCHC RDW Plt Count Lymph % (Auto) Lymph # (Auto) Seg Neutrophils % Seg Neuts % (Manual) Lymphocytes % (Manual) Monocytes % (Manual) Nucleated RBC % Seg Neutrophils # Seg Neutrophils # Man Lymphocytes # (Manual) Monocytes # (Manual) Eosinophils # (Manual) INR D-Dimer ABG pH 7.179 L POC ABG pCO2 76.6 H POC ABG pO2 ABG pO2 ABG HCO3 ABG O2 Saturation ABG Base Excess ABG Hemoglobin 9.0 L ABG Oxyhemoglobin ABG Sodium 134.8 L ABG Potassium ABG Chloride ABG Glucose 118 H Oxyhemoglobin Carboxyhemoglobin Sodium Potassium Chloride Carbon Dioxide BUN Creatinine Glucose POC Glucose 110 H 113 H Hemoglobin A1c Lactic Acid Calcium Phosphorus Magnesium Ferritin Total Bilirubin AST ALT Lactate Dehydrogenase C-Reactive Protein Albumin Triglycerides Arterial Blood Glucose 118 H Arterial Blood Ionized Calcium Urine Creatinine Coronavirus (PCR) Crossmatch 02/26/21 02/26/21 02/26/21 05:48 05:48 05:48 WBC 11.4 H RBC 2.40 L Hgb 7.5 L Hct 23.2 L MCV 97 H MCH MCHC RDW 17.4 H Plt Count Lymph % (Auto) Lymph # (Auto) Seg Neutrophils % Seg Neuts % (Manual) Lymphocytes % (Manual) Monocytes % (Manual) Nucleated RBC % Seg Neutrophils # Seg Neutrophils # Man Lymphocytes # (Manual) Monocytes # (Manual) Eosinophils # (Manual) INR D-Dimer ABG pH POC ABG pCO2 POC ABG pO2 ABG pO2 ABG HCO3 ABG O2 Saturation ABG Base Excess ABG Hemoglobin ABG Oxyhemoglobin ABG Sodium ABG Potassium ABG Chloride ABG Glucose Oxyhemoglobin Carboxyhemoglobin Sodium Potassium Chloride Carbon Dioxide BUN 72 H Creatinine 4.5 H Glucose 112 H POC Glucose Hemoglobin A1c Lactic Acid Calcium 7.7 L Phosphorus Magnesium Ferritin 867.8 H Total Bilirubin AST ALT Lactate Dehydrogenase C-Reactive Protein 5.90 H Albumin Triglycerides Arterial Blood Glucose Arterial Blood Ionized Calcium Urine Creatinine Coronavirus (PCR) Crossmatch 02/26/21 02/26/21 02/26/21 08:00 11:29 18:13 WBC RBC Hgb Hct MCV MCH MCHC RDW Plt Count Lymph % (Auto) Lymph # (Auto) Seg Neutrophils % Seg Neuts % (Manual) Lymphocytes % (Manual) Monocytes % (Manual) Nucleated RBC % Seg Neutrophils # Seg Neutrophils # Man Lymphocytes # (Manual) Monocytes # (Manual) Eosinophils # (Manual) INR D-Dimer ABG pH 7.228 L POC ABG pCO2 70.2 H POC ABG pO2 79.7 L ABG pO2 ABG HCO3 ABG O2 Saturation ABG Base Excess ABG Hemoglobin 7.6 L ABG Oxyhemoglobin 93.2 L ABG Sodium 135.7 L ABG Potassium ABG Chloride ABG Glucose 119 H Oxyhemoglobin Carboxyhemoglobin Sodium Potassium Chloride Carbon Dioxide BUN Creatinine Glucose POC Glucose 110 H 115 H Hemoglobin A1c Lactic Acid Calcium Phosphorus Magnesium Ferritin Total Bilirubin AST ALT Lactate Dehydrogenase C-Reactive Protein Albumin Triglycerides Arterial Blood Glucose 119 H Arterial Blood Ionized Calcium Urine Creatinine Coronavirus (PCR) Crossmatch 02/26/21 02/27/21 02/27/21 23:18 04:00 05:04 WBC RBC Hgb Hct MCV MCH MCHC RDW Plt Count Lymph % (Auto) Lymph # (Auto) Seg Neutrophils % Seg Neuts % (Manual) Lymphocytes % (Manual) Monocytes % (Manual) Nucleated RBC % Seg Neutrophils # Seg Neutrophils # Man Lymphocytes # (Manual) Monocytes # (Manual) Eosinophils # (Manual) INR D-Dimer ABG pH 7.316 L POC ABG pCO2 49.0 H POC ABG pO2 111.2 H ABG pO2 ABG HCO3 ABG O2 Saturation ABG Base Excess ABG Hemoglobin 7.7 L ABG Oxyhemoglobin ABG Sodium 135.0 L ABG Potassium ABG Chloride ABG Glucose 113 H Oxyhemoglobin Carboxyhemoglobin Sodium Potassium Chloride Carbon Dioxide BUN Creatinine Glucose POC Glucose 114 H 112 H Hemoglobin A1c Lactic Acid Calcium Phosphorus Magnesium Ferritin Total Bilirubin AST ALT Lactate Dehydrogenase C-Reactive Protein Albumin Triglycerides Arterial Blood Glucose 113 H Arterial Blood Ionized Calcium 4.4 L Urine Creatinine Coronavirus (PCR) Crossmatch 02/27/21 02/27/21 02/27/21 12:13 18:30 23:40 WBC RBC Hgb Hct MCV MCH MCHC RDW Plt Count Lymph % (Auto) Lymph # (Auto) Seg Neutrophils % Seg Neuts % (Manual) Lymphocytes % (Manual) Monocytes % (Manual) Nucleated RBC % Seg Neutrophils # Seg Neutrophils # Man Lymphocytes # (Manual) Monocytes # (Manual) Eosinophils # (Manual) INR D-Dimer ABG pH POC ABG pCO2 POC ABG pO2 ABG pO2 ABG HCO3 ABG O2 Saturation ABG Base Excess ABG Hemoglobin ABG Oxyhemoglobin ABG Sodium ABG Potassium ABG Chloride ABG Glucose Oxyhemoglobin Carboxyhemoglobin Sodium Potassium Chloride Carbon Dioxide BUN Creatinine Glucose POC Glucose 127 H 129 H 115 H Hemoglobin A1c Lactic Acid Calcium Phosphorus Magnesium Ferritin Total Bilirubin AST ALT Lactate Dehydrogenase C-Reactive Protein Albumin Triglycerides Arterial Blood Glucose Arterial Blood Ionized Calcium Urine Creatinine Coronavirus (PCR) Crossmatch 02/28/21 02/28/21 02/28/21 04:07 05:29 10:22 WBC RBC Hgb Hct MCV MCH MCHC RDW Plt Count Lymph % (Auto) Lymph # (Auto) Seg Neutrophils % Seg Neuts % (Manual) Lymphocytes % (Manual) Monocytes % (Manual) Nucleated RBC % Seg Neutrophils # Seg Neutrophils # Man Lymphocytes # (Manual) Monocytes # (Manual) Eosinophils # (Manual) INR D-Dimer ABG pH 7.260 L POC ABG pCO2 67.6 H POC ABG pO2 ABG pO2 ABG HCO3 ABG O2 Saturation ABG Base Excess ABG Hemoglobin 7.9 L ABG Oxyhemoglobin ABG Sodium ABG Potassium ABG Chloride ABG Glucose 129 H Oxyhemoglobin Carboxyhemoglobin Sodium Potassium Chloride Carbon Dioxide BUN 68 H Creatinine 3.5 H Glucose 117 H POC Glucose 117 H Hemoglobin A1c Lactic Acid Calcium 7.9 L Phosphorus Magnesium Ferritin Total Bilirubin AST ALT Lactate Dehydrogenase C-Reactive Protein Albumin Triglycerides Arterial Blood Glucose 129 H Arterial Blood Ionized Calcium Urine Creatinine Coronavirus (PCR) Crossmatch 02/28/21 02/28/21 03/01/21 11:51 17:26 00:31 WBC RBC Hgb Hct MCV MCH MCHC RDW Plt Count Lymph % (Auto) Lymph # (Auto) Seg Neutrophils % Seg Neuts % (Manual) Lymphocytes % (Manual) Monocytes % (Manual) Nucleated RBC % Seg Neutrophils # Seg Neutrophils # Man Lymphocytes # (Manual) Monocytes # (Manual) Eosinophils # (Manual) INR D-Dimer ABG pH POC ABG pCO2 POC ABG pO2 ABG pO2 ABG HCO3 ABG O2 Saturation ABG Base Excess ABG Hemoglobin ABG Oxyhemoglobin ABG Sodium ABG Potassium ABG Chloride ABG Glucose Oxyhemoglobin Carboxyhemoglobin Sodium Potassium Chloride Carbon Dioxide BUN Creatinine Glucose POC Glucose 123 H 121 H 112 H Hemoglobin A1c Lactic Acid Calcium Phosphorus Magnesium Ferritin Total Bilirubin AST ALT Lactate Dehydrogenase C-Reactive Protein Albumin Triglycerides Arterial Blood Glucose Arterial Blood Ionized Calcium Urine Creatinine Coronavirus (PCR) Crossmatch 03/01/21 03/01/21 03/01/21 03:29 06:00 06:17 WBC RBC Hgb Hct MCV MCH MCHC RDW Plt Count Lymph % (Auto) Lymph # (Auto) Seg Neutrophils % Seg Neuts % (Manual) Lymphocytes % (Manual) Monocytes % (Manual) Nucleated RBC % Seg Neutrophils # Seg Neutrophils # Man Lymphocytes # (Manual) Monocytes # (Manual) Eosinophils # (Manual) INR D-Dimer ABG pH POC ABG pCO2 52.3 H POC ABG pO2 115.1 H ABG pO2 ABG HCO3 ABG O2 Saturation ABG Base Excess ABG Hemoglobin 7.5 L ABG Oxyhemoglobin ABG Sodium 135.6 L ABG Potassium ABG Chloride ABG Glucose 117 H Oxyhemoglobin Carboxyhemoglobin 1.6 H Sodium Potassium Chloride Carbon Dioxide BUN 78 H Creatinine 3.6 H Glucose 110 H POC Glucose 121 H Hemoglobin A1c Lactic Acid Calcium 8.0 L Phosphorus Magnesium Ferritin Total Bilirubin AST ALT Lactate Dehydrogenase C-Reactive Protein Albumin Triglycerides Arterial Blood Glucose 117 H Arterial Blood Ionized Calcium Urine Creatinine Coronavirus (PCR) Crossmatch 03/01/21 03/02/21 03/02/21 23:22 04:43 05:46 WBC RBC Hgb Hct MCV MCH MCHC RDW Plt Count Lymph % (Auto) Lymph # (Auto) Seg Neutrophils % Seg Neuts % (Manual) Lymphocytes % (Manual) Monocytes % (Manual) Nucleated RBC % Seg Neutrophils # Seg Neutrophils # Man Lymphocytes # (Manual) Monocytes # (Manual) Eosinophils # (Manual) INR D-Dimer ABG pH POC ABG pCO2 POC ABG pO2 ABG pO2 ABG HCO3 ABG O2 Saturation ABG Base Excess ABG Hemoglobin ABG Oxyhemoglobin ABG Sodium ABG Potassium ABG Chloride ABG Glucose Oxyhemoglobin Carboxyhemoglobin Sodium Potassium Chloride Carbon Dioxide BUN 89 H Creatinine 3.6 H Glucose 116 H POC Glucose 116 H 126 H Hemoglobin A1c Lactic Acid Calcium 7.7 L Phosphorus Magnesium Ferritin Total Bilirubin AST ALT Lactate Dehydrogenase C-Reactive Protein Albumin Triglycerides Arterial Blood Glucose Arterial Blood Ionized Calcium Urine Creatinine Coronavirus (PCR) Crossmatch 03/02/21 03/02/21 03/02/21 08:35 11:35 15:17 WBC RBC 2.15 L Hgb 7.1 L Hct 20.4 L MCV 95 H MCH 33 H MCHC 35 H RDW 17.6 H Plt Count Lymph % (Auto) Lymph # (Auto) Seg Neutrophils % Seg Neuts % (Manual) Lymphocytes % (Manual) Monocytes % (Manual) Nucleated RBC % Seg Neutrophils # Seg Neutrophils # Man Lymphocytes # (Manual) Monocytes # (Manual) Eosinophils # (Manual) INR D-Dimer ABG pH POC ABG pCO2 POC ABG pO2 ABG pO2 ABG HCO3 ABG O2 Saturation ABG Base Excess ABG Hemoglobin ABG Oxyhemoglobin ABG Sodium ABG Potassium ABG Chloride ABG Glucose Oxyhemoglobin Carboxyhemoglobin Sodium Potassium Chloride Carbon Dioxide BUN Creatinine Glucose POC Glucose 117 H Hemoglobin A1c Lactic Acid Calcium Phosphorus Magnesium Ferritin Total Bilirubin AST ALT Lactate Dehydrogenase C-Reactive Protein Albumin Triglycerides Arterial Blood Glucose Arterial Blood Ionized Calcium Urine Creatinine Coronavirus (PCR) Positive A Crossmatch 03/02/21 03/02/21 03/02/21 17:50 23:26 Unknown WBC RBC Hgb Hct MCV MCH MCHC RDW Plt Count Lymph % (Auto) Lymph # (Auto) Seg Neutrophils % Seg Neuts % (Manual) Lymphocytes % (Manual) Monocytes % (Manual) Nucleated RBC % Seg Neutrophils # Seg Neutrophils # Man Lymphocytes # (Manual) Monocytes # (Manual) Eosinophils # (Manual) INR D-Dimer ABG pH 7.282 L POC ABG pCO2 POC ABG pO2 ABG pO2 150.8 H ABG HCO3 30.1 H ABG O2 Saturation ABG Base Excess ABG Hemoglobin 6.9 L ABG Oxyhemoglobin ABG Sodium ABG Potassium ABG Chloride ABG Glucose Oxyhemoglobin Carboxyhemoglobin Sodium Potassium Chloride Carbon Dioxide BUN Creatinine Glucose POC Glucose 131 H 143 H Hemoglobin A1c Lactic Acid Calcium Phosphorus Magnesium Ferritin Total Bilirubin AST ALT Lactate Dehydrogenase C-Reactive Protein Albumin Triglycerides Arterial Blood Glucose Arterial Blood Ionized Calcium Urine Creatinine Coronavirus (PCR) Crossmatch 03/03/21 03/03/21 03/03/21 03:50 05:46 17:16 WBC RBC Hgb Hct MCV MCH MCHC RDW Plt Count Lymph % (Auto) Lymph # (Auto) Seg Neutrophils % Seg Neuts % (Manual) Lymphocytes % (Manual) Monocytes % (Manual) Nucleated RBC % Seg Neutrophils # Seg Neutrophils # Man Lymphocytes # (Manual) Monocytes # (Manual) Eosinophils # (Manual) INR D-Dimer ABG pH 7.276 L POC ABG pCO2 POC ABG pO2 ABG pO2 ABG HCO3 31.7 H ABG O2 Saturation ABG Base Excess 4.3 H ABG Hemoglobin 6.7 L ABG Oxyhemoglobin ABG Sodium ABG Potassium ABG Chloride ABG Glucose Oxyhemoglobin 93.5 L Carboxyhemoglobin Sodium Potassium Chloride Carbon Dioxide BUN Creatinine Glucose POC Glucose 107 H 109 H Hemoglobin A1c Lactic Acid Calcium Phosphorus Magnesium Ferritin Total Bilirubin AST ALT Lactate Dehydrogenase C-Reactive Protein Albumin Triglycerides Arterial Blood Glucose Arterial Blood Ionized Calcium Urine Creatinine Coronavirus (PCR) Crossmatch 03/03/21 03/03/21 03/03/21 23:34 Unknown Unknown WBC 12.4 H RBC 2.26 L Hgb 6.8 L Hct 21.8 L MCV 96 H MCH MCHC 31 L RDW 18.5 H Plt Count Lymph % (Auto) Lymph # (Auto) Seg Neutrophils % Seg Neuts % (Manual) Lymphocytes % (Manual) Monocytes % (Manual) Nucleated RBC % Seg Neutrophils # Seg Neutrophils # Man Lymphocytes # (Manual) Monocytes # (Manual) Eosinophils # (Manual) INR D-Dimer ABG pH POC ABG pCO2 POC ABG pO2 ABG pO2 ABG HCO3 ABG O2 Saturation ABG Base Excess ABG Hemoglobin ABG Oxyhemoglobin ABG Sodium ABG Potassium ABG Chloride ABG Glucose Oxyhemoglobin Carboxyhemoglobin Sodium Potassium Chloride Carbon Dioxide BUN 70 H Creatinine 2.6 H Glucose 118 H POC Glucose 135 H Hemoglobin A1c Lactic Acid Calcium Phosphorus Magnesium Ferritin Total Bilirubin AST ALT Lactate Dehydrogenase C-Reactive Protein Albumin Triglycerides Arterial Blood Glucose Arterial Blood Ionized Calcium Urine Creatinine Coronavirus (PCR) Crossmatch 03/03/21 03/03/21 03/04/21 Unknown Unknown 03:15 WBC RBC Hgb Hct MCV MCH MCHC RDW Plt Count Lymph % (Auto) Lymph # (Auto) Seg Neutrophils % Seg Neuts % (Manual) Lymphocytes % (Manual) Monocytes % (Manual) Nucleated RBC % Seg Neutrophils # Seg Neutrophils # Man Lymphocytes # (Manual) Monocytes # (Manual) Eosinophils # (Manual) INR 1.15 H D-Dimer ABG pH 7.285 L POC ABG pCO2 POC ABG pO2 ABG pO2 ABG HCO3 28.8 H ABG O2 Saturation ABG Base Excess ABG Hemoglobin 8.3 L ABG Oxyhemoglobin ABG Sodium ABG Potassium ABG Chloride ABG Glucose Oxyhemoglobin 93.4 L Carboxyhemoglobin Sodium Potassium Chloride Carbon Dioxide BUN Creatinine Glucose POC Glucose Hemoglobin A1c Lactic Acid Calcium Phosphorus Magnesium Ferritin Total Bilirubin AST ALT Lactate Dehydrogenase C-Reactive Protein Albumin Triglycerides Arterial Blood Glucose Arterial Blood Ionized Calcium Urine Creatinine Coronavirus (PCR) Crossmatch See Detail 03/04/21 03/04/21 03/04/21 03:28 05:39 11:47 WBC RBC Hgb Hct MCV MCH MCHC RDW Plt Count Lymph % (Auto) Lymph # (Auto) Seg Neutrophils % Seg Neuts % (Manual) Lymphocytes % (Manual) Monocytes % (Manual) Nucleated RBC % Seg Neutrophils # Seg Neutrophils # Man Lymphocytes # (Manual) Monocytes # (Manual) Eosinophils # (Manual) INR D-Dimer ABG pH 7.285 L POC ABG pCO2 62.0 H POC ABG pO2 80.9 L ABG pO2 ABG HCO3 ABG O2 Saturation ABG Base Excess ABG Hemoglobin 8.3 L ABG Oxyhemoglobin ABG Sodium ABG Potassium ABG Chloride ABG Glucose 144 H Oxyhemoglobin Carboxyhemoglobin Sodium Potassium Chloride Carbon Dioxide BUN Creatinine Glucose POC Glucose 123 H 125 H Hemoglobin A1c Lactic Acid Calcium Phosphorus Magnesium Ferritin Total Bilirubin AST ALT Lactate Dehydrogenase C-Reactive Protein Albumin Triglycerides Arterial Blood Glucose 144 H Arterial Blood Ionized Calcium Urine Creatinine Coronavirus (PCR) Crossmatch 03/04/21 03/04/21 03/04/21 16:49 Unknown Unknown WBC 13.9 H RBC 2.58 L Hgb 7.7 L Hct 24.0 L MCV MCH MCHC RDW 20.3 H Plt Count Lymph % (Auto) Lymph # (Auto) Seg Neutrophils % Seg Neuts % (Manual) Lymphocytes % (Manual) Monocytes % (Manual) Nucleated RBC % Seg Neutrophils # Seg Neutrophils # Man Lymphocytes # (Manual) Monocytes # (Manual) Eosinophils # (Manual) INR D-Dimer ABG pH POC ABG pCO2 POC ABG pO2 ABG pO2 ABG HCO3 ABG O2 Saturation ABG Base Excess ABG Hemoglobin ABG Oxyhemoglobin ABG Sodium ABG Potassium ABG Chloride ABG Glucose Oxyhemoglobin Carboxyhemoglobin Sodium Potassium Chloride Carbon Dioxide BUN 78 H Creatinine 2.5 H Glucose 131 H POC Glucose 120 H Hemoglobin A1c Lactic Acid Calcium 8.2 L Phosphorus Magnesium Ferritin Total Bilirubin AST ALT Lactate Dehydrogenase C-Reactive Protein Albumin Triglycerides Arterial Blood Glucose Arterial Blood Ionized Calcium Urine Creatinine Coronavirus (PCR) Crossmatch 03/05/21 03/05/21 03/05/21 00:31 04:18 05:30 WBC RBC Hgb Hct MCV MCH MCHC RDW Plt Count Lymph % (Auto) Lymph # (Auto) Seg Neutrophils % Seg Neuts % (Manual) Lymphocytes % (Manual) Monocytes % (Manual) Nucleated RBC % Seg Neutrophils # Seg Neutrophils # Man Lymphocytes # (Manual) Monocytes # (Manual) Eosinophils # (Manual) INR D-Dimer ABG pH 7.160 L POC ABG pCO2 86.3 H POC ABG pO2 55.9 L ABG pO2 ABG HCO3 ABG O2 Saturation ABG Base Excess ABG Hemoglobin 8.3 L ABG Oxyhemoglobin 82.1 L ABG Sodium ABG Potassium ABG Chloride 108.0 H ABG Glucose 149 H Oxyhemoglobin Carboxyhemoglobin 1.7 H Sodium Potassium Chloride Carbon Dioxide BUN Creatinine Glucose POC Glucose 129 H 133 H Hemoglobin A1c Lactic Acid Calcium Phosphorus Magnesium Ferritin Total Bilirubin AST ALT Lactate Dehydrogenase C-Reactive Protein Albumin Triglycerides Arterial Blood Glucose 149 H Arterial Blood Ionized Calcium Urine Creatinine Coronavirus (PCR) Crossmatch 03/05/21 03/05/21 03/05/21 09:00 11:31 16:55 WBC RBC Hgb Hct MCV MCH MCHC RDW Plt Count Lymph % (Auto) Lymph # (Auto) Seg Neutrophils % Seg Neuts % (Manual) Lymphocytes % (Manual) Monocytes % (Manual) Nucleated RBC % Seg Neutrophils # Seg Neutrophils # Man Lymphocytes # (Manual) Monocytes # (Manual) Eosinophils # (Manual) INR D-Dimer ABG pH POC ABG pCO2 POC ABG pO2 ABG pO2 ABG HCO3 ABG O2 Saturation ABG Base Excess ABG Hemoglobin ABG Oxyhemoglobin ABG Sodium ABG Potassium ABG Chloride ABG Glucose Oxyhemoglobin Carboxyhemoglobin Sodium Potassium Chloride Carbon Dioxide BUN 84 H Creatinine 2.3 H Glucose 143 H POC Glucose 133 H 146 H Hemoglobin A1c Lactic Acid Calcium 8.0 L Phosphorus Magnesium Ferritin Total Bilirubin AST ALT Lactate Dehydrogenase C-Reactive Protein Albumin Triglycerides Arterial Blood Glucose Arterial Blood Ionized Calcium Urine Creatinine Coronavirus (PCR) Crossmatch 03/05/21 03/05/21 03/05/21 23:20 Unknown Unknown WBC RBC Hgb Hct MCV MCH MCHC RDW Plt Count Lymph % (Auto) Lymph # (Auto) Seg Neutrophils % Seg Neuts % (Manual) Lymphocytes % (Manual) Monocytes % (Manual) Nucleated RBC % Seg Neutrophils # Seg Neutrophils # Man Lymphocytes # (Manual) Monocytes # (Manual) Eosinophils # (Manual) INR D-Dimer ABG pH POC ABG pCO2 POC ABG pO2 ABG pO2 ABG HCO3 ABG O2 Saturation ABG Base Excess ABG Hemoglobin ABG Oxyhemoglobin ABG Sodium ABG Potassium ABG Chloride ABG Glucose Oxyhemoglobin Carboxyhemoglobin Sodium Potassium Chloride Carbon Dioxide BUN Creatinine Glucose POC Glucose 144 H Hemoglobin A1c Lactic Acid Calcium Phosphorus Magnesium Ferritin Total Bilirubin AST ALT Lactate Dehydrogenase C-Reactive Protein Albumin Triglycerides Arterial Blood Glucose Arterial Blood Ionized Calcium Urine Creatinine 65.9 H 66.1 H Coronavirus (PCR) Crossmatch 03/06/21 03/06/21 03/06/21 03:23 05:20 11:59 WBC RBC Hgb Hct MCV MCH MCHC RDW Plt Count Lymph % (Auto) Lymph # (Auto) Seg Neutrophils % Seg Neuts % (Manual) Lymphocytes % (Manual) Monocytes % (Manual) Nucleated RBC % Seg Neutrophils # Seg Neutrophils # Man Lymphocytes # (Manual) Monocytes # (Manual) Eosinophils # (Manual) INR D-Dimer ABG pH 7.239 L POC ABG pCO2 67.0 H POC ABG pO2 76.6 L ABG pO2 ABG HCO3 ABG O2 Saturation ABG Base Excess ABG Hemoglobin 8.0 L ABG Oxyhemoglobin 92.4 L ABG Sodium 145.6 H ABG Potassium ABG Chloride 108.0 H ABG Glucose 134 H Oxyhemoglobin Carboxyhemoglobin 2.1 H Sodium Potassium Chloride Carbon Dioxide BUN Creatinine Glucose POC Glucose 114 H 132 H Hemoglobin A1c Lactic Acid Calcium Phosphorus Magnesium Ferritin Total Bilirubin AST ALT Lactate Dehydrogenase C-Reactive Protein Albumin Triglycerides Arterial Blood Glucose 134 H Arterial Blood Ionized Calcium Urine Creatinine Coronavirus (PCR) Crossmatch 03/06/21 03/06/21 03/06/21 17:35 17:45 18:01 WBC RBC Hgb Hct MCV MCH MCHC RDW Plt Count Lymph % (Auto) Lymph # (Auto) Seg Neutrophils % Seg Neuts % (Manual) Lymphocytes % (Manual) Monocytes % (Manual) Nucleated RBC % Seg Neutrophils # Seg Neutrophils # Man Lymphocytes # (Manual) Monocytes # (Manual) Eosinophils # (Manual) INR D-Dimer ABG pH 7.286 L POC ABG pCO2 POC ABG pO2 ABG pO2 78.1 L ABG HCO3 33.7 H ABG O2 Saturation ABG Base Excess 5.5 H ABG Hemoglobin 10.3 L ABG Oxyhemoglobin ABG Sodium ABG Potassium ABG Chloride ABG Glucose Oxyhemoglobin 92.3 L Carboxyhemoglobin Sodium 148 H Potassium Chloride 107.1 H Carbon Dioxide 33 H BUN 91 H Creatinine 2.1 H Glucose 149 H POC Glucose 132 H Hemoglobin A1c Lactic Acid Calcium 8.2 L Phosphorus Magnesium Ferritin Total Bilirubin AST ALT Lactate Dehydrogenase C-Reactive Protein Albumin Triglycerides Arterial Blood Glucose Arterial Blood Ionized Calcium Urine Creatinine Coronavirus (PCR) Crossmatch 03/06/21 03/07/21 03/07/21 23:44 03:30 03:33 WBC RBC Hgb Hct MCV MCH MCHC RDW Plt Count Lymph % (Auto) Lymph # (Auto) Seg Neutrophils % Seg Neuts % (Manual) Lymphocytes % (Manual) Monocytes % (Manual) Nucleated RBC % Seg Neutrophils # Seg Neutrophils # Man Lymphocytes # (Manual) Monocytes # (Manual) Eosinophils # (Manual) INR D-Dimer ABG pH POC ABG pCO2 60.0 H POC ABG pO2 76.2 L ABG pO2 ABG HCO3 ABG O2 Saturation ABG Base Excess ABG Hemoglobin 7.7 L ABG Oxyhemoglobin 93.2 L ABG Sodium 148.6 H ABG Potassium ABG Chloride 112.0 H ABG Glucose 173 H Oxyhemoglobin Carboxyhemoglobin 1.7 H Sodium 147 H Potassium Chloride 107.4 H Carbon Dioxide BUN 90 H Creatinine 2.0 H Glucose 158 H POC Glucose 144 H Hemoglobin A1c Lactic Acid Calcium 8.0 L Phosphorus Magnesium Ferritin Total Bilirubin AST ALT Lactate Dehydrogenase C-Reactive Protein Albumin Triglycerides Arterial Blood Glucose 173 H Arterial Blood Ionized Calcium Urine Creatinine Coronavirus (PCR) Crossmatch 03/07/21 03/07/21 05:11 08:01 WBC 11.8 H RBC 2.45 L Hgb 7.2 L Hct 23.4 L MCV 96 H MCH MCHC 31 L RDW 19.7 H Plt Count Lymph % (Auto) 7.3 L Lymph # (Auto) 0.9 L Seg Neutrophils % 82.8 H Seg Neuts % (Manual) Lymphocytes % (Manual) Monocytes % (Manual) Nucleated RBC % Seg Neutrophils # 9.8 H Seg Neutrophils # Man Lymphocytes # (Manual) Monocytes # (Manual) Eosinophils # (Manual) INR D-Dimer ABG pH POC ABG pCO2 POC ABG pO2 ABG pO2 ABG HCO3 ABG O2 Saturation ABG Base Excess ABG Hemoglobin ABG Oxyhemoglobin ABG Sodium ABG Potassium ABG Chloride ABG Glucose Oxyhemoglobin Carboxyhemoglobin Sodium Potassium Chloride Carbon Dioxide BUN Creatinine Glucose POC Glucose 144 H Hemoglobin A1c Lactic Acid Calcium Phosphorus Magnesium Ferritin Total Bilirubin AST ALT Lactate Dehydrogenase C-Reactive Protein Albumin Triglycerides Arterial Blood Glucose Arterial Blood Ionized Calcium Urine Creatinine Coronavirus (PCR) Crossmatch
--- NOTE | 2021-03-07 12:25 | Progress Note ---
Assessment and Plan Assessment and plan: This is a 60-year-old male with diabetes mellitus, hypertension, hyperlipidemia, chronic renal insufficiency who was admitted on 01/23 as a COVID-19 PUI with Sepsis, COVID-19 pneumonia, coag negative staph bacteremia, acute hypoxic respiratory failure, and acute kidney injury. Sepsis COVID-19 pneumonia Coag-neg Staph bacteremia Acute hypoxic respiratory failure Acute kidney injury, HD initiated 02/03 Anemia Diabetes mellitus Hypertension Hyperlipidemia Chronic renal insufficiency Elevated D-dimer Penile ulceration Sacral wound -CCM, nephrology, infectious disease, GI , vascular surgery, surgery, urology, neurology consulted, appreciate recommendations -s/p Antibiotic therapy, remdesivir, Steroid therapy -COVID-19 PCR positive, Pneumonia on CXR -Mechanical ventilation, wean as tolerated -VAP bundle -HD per nephrology, on hold given improvement 03/06 -S/p 5 units PRBC during stay -Trend BMP, CBC, COVID-19 inflammatory markers -Bilateral lower extremity and upper extremity Doppler ultrasound negative for DVT/SVT -SSI and Long-acting insulin -Accu-Cheks every 6 while on tube feedings -Hold home antihypertensive regimen and resume when appropriate -S/p vasopressor support -Blood pressure monitoring per protocol -S/p NaHCO3 gtt -02/17 CT head showed no acute intracranial abnormality, paranasal sinus disease -Bowel regimen -02/24 EEG finding consistent with encephalopathy and/or drug effect, possibility of toxic metabolic etiology cannot be excluded, possibility of structural lesion on the left side cannot be excluded given left being slightly slower than the right. -Neosporin twice daily to penile shaft ulcer -01/23, 02/18, 03/02 COVID-19 PCR positive -Permcath placement pending -03/06 s/p bedside debridement with surgery -Wound care per nursing DVT/GI prophylaxis: SCDs to bilateral lower extremities while in bed, PPI, heparin subq Dispo: ICU The high probability of a clinically significant, sudden or life threatening deterioration of the [multi] system(s) required my full and direct attention, intervention and personal management. The aggregate critical care time was [35] minutes. This time is in addition to time spent performing reported procedures but includes the following: [x] Data Review and interpretation [x] Patient assessment and monitoring of vital signs [x] Documentation [x] Medication orders and management History Interval history: This is a 60-year-old male with diabetes mellitus, hypertension, hyperlipidemia, chronic renal insufficiency presents to the emergency department on 01/23 with shortness of breath, fevers chills, loss of smell and taste and body aches for the past 3 days via EMS. Per EMS patient's oxygen saturation on room air was 50% and after being placed on nonrebreather it increased 75%. Upon arrival to the emergency department patient was being bagged by EMS. In the emergency room patient was intubated due to severe hypoxia, increased work of breathing and lethargy. Patient was sedated on propofol and fentanyl. Patient presented with fever, tachycardia, tachypnea and acute hypoxic respiratory failure with PNA on CXR meeting Sepsis criteria. Lab work in the emergency department revealed hyponatremia, hypokalemia, hypochloremia, elevated CR/BUN and CXR showed bilateral pneumonia. Patient was admitted to the hospital service as a COVID-19 PUI with consults to infectious disease, nephrology and critical care medicine. 01/24/2021: Patient is intubated and sedated, patient is positive for COVID-19 infection. ID was consulted and put on dexamethasone and remdesivir. Patient has DEISI and nephrology is following. Creatinine stable, patient is urinating. Discussed with nephrology and he is okay with remdesivir. Pulmonary critical care is following for his vent setting. PEEP of 8 and FiO2 of 85%. Patient was alert and off sedatives. 01/25/2021; patient is intubated and on mechanical ventilation. Continue with treatment of Covid. Nephrology and ID is following. Pulmonary is following for vent management 01/26: Remains on mechanical ventilation and [facility] increased his PEEP. [facility] has ordered Precedex for sedation. Possibly need to prone this p.m. No acute event s reported overnight. This morning his D-dimer is greater than 10,000 and we have started him on Lovenox 120 mg daily. Nutrition has been consulted for initiation of tube feedings. Patient remains sedated on propofol 40 and fentanyl for the time my examination this morning. 01/27: Continue Lovenox, remdesivir and empiric antibiotics. Patient had a T-max of 101 overnight. The time of examination patient is on CMV 500/18/14/0.61. Kidney function slightly worsened. Sedated on fentanyl ground-level fall and Precedex. Nephrology has increased IV fluids to 100 ml/hr. Continue to trend BMP and CBC. Sedation vacation attempt by RN this AM. 01/28: Patient completed antibiotics today [facility] will paralyze patient and increase sedation. PICC line ordered for possible vasopressor therapy need. Patient's D-dimer remains greater than 10,000 and he still has hyperchloremia. Patient's kidney function has improved today. May need to prone the patient if no improvement in oxygenation is noted in the next 24 hours. The time of my examination patient is sedated with propofol, fentanyl and Precedex and is on assist control 500/18/16/0.80 hypoxic on ABG on 60% FiO2. 01/29: Patient was started on Nimbex yesterday and his ABG this morning showed respiratory acidosis with hypercapnia and his respiratory rate was increased. We will obtain a repeat ABG this afternoon. This morning patient is hype rnatremic, hyperkalemic and hyperchloremic. His potassium has been corrected with the management and will obtain repeat BMP tomorrow. His kidney functions have remained stable and we will await nephrology's input. No acute events reported overnight. This morning the time my examination patient sedated with propofol, Precedex and fentanyl and paralyzed with Nimbex. He is on assist control 500/24/16 0.80. 01/30: This morning patient is hypokalemic again and was given Kayexalate. Patient has hypernatremia and hyper chloremia and his renal function is slightly worse after receiving Lasix yesterday. His D-dimer remains greater than 10,000 and he is still on a paralytic. Patient is sedated on Precedex, fentanyl, propofol. Mechanical ventilation settings seven-point 2/69/61/28. [facility] has decided to continue paralytics for 48 more hours and will attempt proning the patient. Increased free water flushes 300 cc every 4 hours. Patient states has restarted his antibiotics cefepime and vancomycin and recultured. 01/31/21 Hyperkalemia, Treated 02/01/21 Hyperkalemia, Treated 02/02: Patient's kidney function continues to worsen and a stat BMP this morning shows BUN/creatinine 20/6.1 and he remains hypocalcemic and hypernatremic, hypokalemic and hypochloremic. Patient received 2 g of calcium gluconate and Kayexalate and his repeat potassium was 4.3 this afternoon. He remains antibiotic therapy and steroids. Nephrology has placed the patient on bicarb drip given metabolic acidosis and has decided to hold off hemodialysis till tomorrow.The time my examination patient is sedated on fentanyl, Precedex and on assist control 500/20/12/0.70. s/p paralytic. 02/03: Today patient's ABG shows respiratory acidosis however it is improving, hypernatremia, hyperchloremia, metabolic acidosis on BMP, worsening kidney function BUN/creatinine 130/9.2 with hyperphosphatemia. Patient received a Vas- Cath to his right IJ for initiation of dialysis. At the time of my examination patient remains sedated on fentanyl, propofol and Precedex with vasopressor support with Levophed at 2. 02/04: At the time of examination patient was on assist control tidal volume 500, rate 40, PEEP of 12, FiO2 85%. Patient had a T-max of 100.9 and infectious disease has stopped his vancomycin given negative MRSA. This afternoon patient respiked his temperature and was pancultured again. Patient was started on he modialysis yesterday and will receive HD again today. Patient is sedated on Precedex, propofol, fentanyl and remains on Levophed. He is on assist control tidal volume 500, rate of 30, PEEP of 12, FiO2 of 85%. Patient still has some respiratory acidosis however his hypernatremia and hyperchloremia have improved and his metabolic acidosis has resolved. Patient will receive hemodialysis today 02/05: Patient continues to have low-grade fever temp this morning time examination he was on assist control tidal volume 500, and sedated on propofol/fentanyl/Precedex and is on Levophed. Hemodialysis per nephrology. Antibiotics per ID. Patient's blood culture from 02/04 grew gram-positive cocci in clusters in 1/2 bottles and he was started on vancomycin. 02/06: Patients ABG showed respiratory acidosis and the tracings were changed however a repeat ABG showed showed acidosis.[facility] will start a bicarb drip after giving 2 amps of bicarb push. Yesterday patient blood cultures grew gram- positive cocci and he was started on vancomycin. At the time my examination patient was on assist control tidal volume 550, rate 34, PEEP 16, FiO2 90% and sedated on fentanyl, Precedex, propofol elevated pressure support with Levophed. Bilateral lower extremity Doppler ultrasounds done yesterday showed no eviden ce of DVT/SVT. 02/07/2021; patient is still on the vent with PEEP of 16 and FiO2 of 90%, sedated with fentanyl Precedex and propofol. Patient still requiring Levophed. Patient was sedated yesterday and was given bicarb push. Blood culture grew gram-positive cocci in clusters and he is on vancomycin, will follow identification. 02/08/2021;patient is still on the vent with PEEP of 16 and FiO2 of 90%, sedated with fentanyl Precedex and propofol. Patient still requiring Levophed. Patient was sedated yesterday and was given bicarb push. Blood culture grew gram- positive cocci in clusters and he is on vancomycin, will follow identification. Patient is currently on dialysis. Patient is anemic transfuse if hemoglobin is below 7. 02/09: This morning patient has slight hypokalemia, hypochorlemia, hyponatremia and metabolic alkalosis. [facility] will continue bicarb gtt given that the patient does not have HD access at this time. We will replete the potassium and recheck BMP in the AM. We will type and cross in anticipation of PRBC transfusion. This morning he is sedated on Ativan, fentayl, and precedex. Will obtain a triglyceride level today in hopes to resume propofol. Patient is alkalotic and BMP however we will continue with bicarb drip per [facility] given that the patient does not have any access for hemodialysis. Anticipate replacing hemodialysis catheter tomorrow or Tuesday. The time my examination he is on AC TV 550, Rate 34, PeeP 16, FiO2 .65. 02/10: A.m. labs still pending, [facility] plans to replace HD catheter tomorrow as the patient is still febrile however his fever curve is trending down, remains on a bicarb drip and on vancomycin. Today at the time my examination patient was sedated on Precedex, Ativan and fentanyl and he is on assist control tidal 11/04/1951, rate 34, PEEP 16, FiO2 65%. Overnight patient was hypotensive and received 1 dose of midodrine. 02/11: Patient is still having low-grade temperatures that we will obtain a bilateral lower upper extremity venous Doppler ultrasound given that his repeat cultures have been negative so far. Patient received a Vas-Cath today for hemodialysis. The time examination patient is on assist control tidal volume 550, rate of 34, PEEP of 16 and FiO2 of 75%. Patient was hypokalemic and anemic yesterday which were both repleted with potassium and 1 unit PRBC. 02/12: 02/12: Patient had a 12-second run of V. tach today, his potassium and magnesium were low which was repleted. Renal adjusted potassium bath. We will obtain a triglyceride level in hopes to restarting to prevent as needed. This morning at the time my examination patient was sedated on fentanyl, Ativan and Precedex and remained on a bicarb drip. He was on assist control tidal volume 550, rate 34, PEEP 16, FiO2 85%. We will obtain a occult stool given no evident source of bleeding and need for transfusion. Anemia possibly due to hemodialysis. 02/13: Patient's T-max was 100.7, remains on fentanyl, Ativan, Precedex and bicarb drip this morning at some examination on assist control tidal volume 550, rate 34, PEEP 16 and FiO2 85%. On the labs this morning is slightly hypokalemic and remains metabolic alkalotic on BMP. His occult was positive. His Lovenox and consult GI. Patient received hemodialysis today. 02/14: cont PPI, GI recommended to scope now, monitor clinically, tolerating TF, remains intubated. Hb 6.9 today - transfuse another unit. very poor prognosis. 02/15: H&H appears to be stable following 1 unit of transfusion yesterday. Continue to hold heparin and aspirin products. Continue to monitor clinically. Poor prognosis. Wean off from vent as tolerated. 02/16: Infectious disease has signed off, his Ativan drip was discontinued and to prevent drip will be started when patient needs it. T-max 100.6 yesterday aft eduardo. He received hemodialysis today and at the time my examination was still on mechanical ventilation assist control tidal volume 550, rate 34, PEEP 16 on 70% FiO2. Patient was sedated on fentanyl dexamethasone and Ativan. No acute events reported overnight. 02/17: This morning patient was scheduled to get 2 units PRBC however his repeat H/H after 1 unit PRBC was 7.6/22.8 and the width of the second unit PRBC. This morning patient was sedated on fentanyl, propofol, Precedex and on assist control tolerated by 50, rate 34, PEEP of 16, FiO2 35%. Wound care was consulted today for his upper lip wound. Nephrology continues to withhold dialysis. No acute events reported overnight. Dr. Adkins was unable to contact family for updates. 02/18: Family updated by Dr. Adkins and Dr. Reddy. Patient had a hemodialysis today. The time my examination patient was on assist control tidal volume 550, rate 34, PEEP 16 and FiO2 35%. Overnight patient had a CT head and he was placed on 3% FiO2 and took "a long time to recover" per RN report. 02/19: Patient's D-dimer is trending up therefore he was started on prophylactic anticoagulation, no bowel movement for several days so he was started on mag citrate today. The time examination patient is sedated on Precedex 1.2, fentanyl 3, propofol 20 on assist control tidal volume 550, rate 34, PEEP 16, 80% FiO2 and on his ABG his PaO2 is 106. RT will try to wean as tolerated. Repeat COVID-19 PCR today was positive.Dr. Adkins updated the family today. 02/20: Patient received hemodialysis today. In the time my examination patient was sedated on Precedex, fentanyl, propofol and on assist control tidal line 550, rate 34, PEEP of 16 and 75% FiO2. Patient had a bowel movement yesterday. 02/21 no new concerns at this time afebrile Hospital course remains uncomplicated. 02/22. Hospital course complicated by an episode of ectopy over the p.m. Patient required Levophed for blood pressure control. Remains intubated sedated. Tolerated hemodialysis yesterday. 02/23: At the time my examination patient is on assist control tidal volume 550, rate 34, PEEP 16, FiO2 70% and is not sedated. Patient does not follow commands however his eyes open spontaneously and he does not track/focus. 02/24: Neurology consulted, EEG pending. No acute events reported overnight. Patient remains on hyperventilation totaling 550, rate 34, PEEP of 16 on 70% FiO2. Patient received hemodialysis yesterday. 02/25: EEG from 02/24 is suggestive of encephalopathy (toxic metabolic etiology cannot be excluded). This afternoon his peak pressures and and mean airway pressure is elevated so we obtained a CXR and ABG. Results were called to Dr. Isaias castillo. Patient received 2 mg of Versed was placed back on his sedation with fentanyl and Precedex. 02/26: Patient is on pressure ventilation FiO2 70%, Pressure inspiration 25, rate 34, PEEP 10 and sedated on fentanyl at 2mcgs and Precedex at 0.2. We will obtain a cxr for evaluation. Patient seems to be much more comfortable today. 02/27: CXr unchanged, at the time of my examination patient is on pressure control ventilation FiO2 70%, pressure support 26, rate 34 n.p.o. for 10 and sedated on fentanyl at 2 and Precedex at 0.1. His latest ABG 7.3, CO2 49, PO2 111, base excess 24. Patient is to receive hemodialysis today. No acute events reported overnight. Patient still not following commands. 02/28: Continue mechanical ventilation per pulmonary recommendations. Patient currently in AC mode ventilation rate 34, FiO2 70%, PEEP 15. 02/24 EEG finding consistent with encephalopathy and/or drug effect, possibility of toxic metabolic etiology cannot be excluded, possibility of structural lesion on the left side cannot be excluded given left being slightly slower than the right. Continue hemodialysis per nephrology. Currently with sedation of fentanyl and Precedex. Pulmonary plans for trach when ventilator settings allow. 03/01: Patient remains on mechanical ventilation AC mode, FiO2 70%, PEEP of 10. Hemodialysis initiated on 02/03/2021. Continue per nephrology. Patient will need tracheostomy once ventilator settings allow. Continue supportive care with tube feedings. Aspiration precautions. Patient appears to have penile ulceration and purulence. Consult urology for further evaluation. Prognosis remains guarded. 03/02: Tentative plan to place permacath tomorrow, patient will be n.p.o. after midnight and repeat COVID-19 PCR was ordered. 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 Patient received hemodialysis today. Today at the time of examination patient was on pressure control ventilation with a PEEP of 10 and FiO2 of 60 sedated on fentanyl and Precedex. 03/03: Patient noted to be anemic and ordered 1 unit of PRBC to be transfused, [facility] thinks patient has suffered from oxygen toxicity from prolonged time on high levels of oxygen (greater than 60%) for several weeks. The time my examination patient was on volume control ventilation and he remains off sedation. 03/04: Patient H/H today and 7.7/1:24 unit PRBC yesterday. Patient remains on pressure control ventilation with a pressure support of 26, FiO2 55, rate of 24 and PEEP of 10. His sedation was restarted yesterday for increase WOB and tachypnea. Patient is sedated on fentanyl and dexamethasone. We will continue current management and possibly obtain a CT head on Tuesday if no improvement in mental status. 03/05: Infectious disease has stated that the patient is noninfectious as per PermCath procedure. However patient is renal function is improving and nephrology has opted to place PermCath on Tuesday if HD is still indicated. Patient was given mag citrate today for constipation and sodium bicarbonate push. Today surgery was consulted for possible debridement of sacral wound. 03/06: Patient is sedated on fentanyl and dexamethasone on pressure control ventilation FiO2 55%, pressure support 26, rate 40 and PEEP of 10 at the time my examination. And he was switched to assist control by [facility]. Patient continues to have low-grade fevers which may be multifactorial. Given that creatinine clearance was 26 and urine output is improving nephrology has decided to hold HD for now. General surgery has debrided the sacaral wound today. Will attempt to obtain midline or PIV in order to remove CVL BILLIE. 03/07: Alert, examination patient was sedated on fentanyl and dexamethasone on assist control tidal volume 550, rate 26, PEEP of 1455% FiO2. Patient renal function has remained stable and we will monitor him off of hemodialysis. RN was unable to obtain a midline or PIV. Per [facility] CVL remain and possible small clot in the left IJ visualized with ultrasound probe. Will monitor fever curve. Hospitalist Physical - Constitutional Vitals: Temp Pulse Resp BP Pulse Ox 98.9 F 104 H 28 H 123/61 96 03/07/21 03:42 03/07/21 12:00 03/07/21 12:00 03/07/21 12:00 03/07/21 12:00 General appearance: Present: no acute distress, obese, other (on mechanical ventilation, sedated) - EENT Eyes: Present: PERRL ENT: poor dentition - Respiratory Respiratory effort: normal Respiratory: bilateral: CTA - Cardiovascular Rhythm: regular Heart Sounds: Present: S1 & S2. Absent: systolic murmur, diastolic murmur - Extremities Extremities: no ischemia, pulses intact, pulses symmetrical, No edema, normal temperature, normal color Peripheral Pulses: within normal limits - Abdominal General gastrointestinal: soft, non-tender, non-distended, normal bowel sounds - Integumentary Integumentary: Present: warm, dry - Psychiatric Psychiatric: other (sedated) - Neurologic Neurologic: other (PERRLA, does not FC, does not track/focus) - Allied Health Allied health notes reviewed: nursing, RT HEART Score - HEART Score Risk factors: 1-2 risk factors Troponin: < normal limit - Critical Actions Critical Actions: 0-3 pts:0.9-1.7%risk of adverse cardiac event.Candidate for discharge Results - Labs CBC & Chem 7: 03/07/21 08:01 03/07/21 03:30 Labs: Laboratory Last Values WBC 11.8 K/mm3 (4.5-11.0) H 03/07/21 08:01 RBC 2.45 M/mm3 (3.65-5.03) L 03/07/21 08:01 Hgb 7.2 gm/dl (11.8-15.2) L 03/07/21 08:01 Hct 23.4 % (35.5-45.6) L 03/07/21 08:01 MCV 96 fl (84-94) H 03/07/21 08:01 MCH 29 pg (28-32) 03/07/21 08:01 MCHC 31 % (32-34) L 03/07/21 08:01 RDW 19.7 % (13.2-15.2) H 03/07/21 08:01 Plt Count 308 K/mm3 (140-440) 03/07/21 08:01 Lymph % (Auto) 7.3 % (13.4-35.0) L 03/07/21 08:01 [place] % (Auto) 6.9 % (0.0-7.3) 03/07/21 08:01 Eos % (Auto) 2.2 % (0.0-4.3) 03/07/21 08:01 Baso % (Auto) 0.8 % (0.0-1.8) 03/07/21 08:01 Lymph # (Auto) 0.9 K/mm3 (1.2-5.4) L 03/07/21 08:01 [place] # (Auto) 0.8 K/mm3 (0.0-0.8) 03/07/21 08:01 Eos # (Auto) 0.3 K/mm3 (0.0-0.4) 03/07/21 08:01 Baso # (Auto) 0.1 K/mm3 (0.0-0.1) 03/07/21 08:01 Add Manual Diff Complete 02/24/21 04:25 Total Counted 100 02/24/21 04:25 Seg Neutrophils % 82.8 % (40.0-70.0) H 03/07/21 08:01 Seg Neuts % (Manual) 82.0 % (40.0-70.0) H 02/24/21 04:25 Band Neutrophils % 2.0 % 02/16/21 Unknown Lymphocytes % (Manual) 3.0 % (13.4-35.0) L 02/24/21 04:25 Reactive Lymphs % (Man) 1.0 % 01/27/21 05:29 Monocytes % (Manual) 11.0 % (0.0-7.3) H 02/24/21 04:25 Eosinophils % (Manual) 1.0 % (0.0-4.3) 02/24/21 04:25 Basophils % (Manual) 1.0 % (0.0-1.8) 02/24/21 04:25 Metamyelocytes % 2.0 % 02/24/21 04:25 Nucleated RBC % Not Reportable 02/24/21 04:25 Seg Neutrophils # 9.8 K/mm3 (1.8-7.7) H 03/07/21 08:01 Seg Neutrophils # Man 9.4 K/mm3 (1.8-7.7) H 02/24/21 04:25 Band Neutrophils # 0.0 K/mm3 02/24/21 04:25 Lymphocytes # (Manual) 0.3 K/mm3 (1.2-5.4) L 02/24/21 04:25 Abs React Lymphs (Man) 0.0 K/mm3 02/24/21 04:25 Monocytes # (Manual) 1.3 K/mm3 (0.0-0.8) H 02/24/21 04:25 Eosinophils # (Manual) 0.1 K/mm3 (0.0-0.4) 02/24/21 04:25 Basophils # (Manual) 0.1 K/mm3 (0.0-0.1) 02/24/21 04:25 Metamyelocytes # 0.2 K/mm3 02/24/21 04:25 Myelocytes # 0.0 K/mm3 02/24/21 04:25 Promyelocytes # 0.0 K/mm3 02/24/21 04:25 Blast Cells # 0.0 K/mm3 02/24/21 04:25 WBC Morphology Not Reportable 02/24/21 04:25 Hypersegmented Neuts Not Reportable 02/24/21 04:25 Hyposegmented Neuts Not Reportable 02/24/21 04:25 Hypogranular Neuts Not Reportable 02/24/21 04:25 Smudge Cells Not Reportable 02/24/21 04:25 Toxic Granulation Not Reportable 02/24/21 04:25 Toxic Vacuolation Not Reportable 02/24/21 04:25 Dohle Bodies Not Reportable 02/24/21 04:25 Pelger-Huet Anomaly Not Reportable 02/24/21 04:25 Fátima Rods Not Reportable 02/24/21 04:25 Platelet Estimate Consistent w auto 02/24/21 04:25 Clumped Platelets Not Reportable 02/24/21 04:25 Plt Clumps, EDTA Not Reportable 02/24/21 04:25 Large Platelets Not Reportable 02/24/21 04:25 Giant Platelets Not Reportable 02/24/21 04:25 Platelet Satelliting Not Reportable 02/24/21 04:25 Plt Morphology Comment Not Reportable 02/24/21 04:25 RBC Morphology Not Reportable 02/24/21 04:25 Dimorphic RBCs Not Reportable 02/24/21 04:25 Polychromasia Few 02/24/21 04:25 Hypochromasia Not Reportable 02/24/21 04:25 Poikilocytosis Not Reportable 02/24/21 04:25 Anisocytosis 1+ 02/24/21 04:25 Microcytosis Not Reportable 02/24/21 04:25 Macrocytosis Not Reportable 02/24/21 04:25 Spherocytes Not Reportable 02/24/21 04:25 Pappenheimer Bodies Not Reportable 02/24/21 04:25 Sickle Cells Not Reportable 02/24/21 04:25 Target Cells Not Reportable 02/24/21 04:25 Tear Drop Cells Not Reportable 02/24/21 04:25 Ovalocytes Not Reportable 02/24/21 04:25 Helmet Cells Not Reportable 02/24/21 04:25 [place] Bodies Not Reportable 02/24/21 04:25 [place] Rings Not Reportable 02/24/21 04:25 [place] Cells Not Reportable 02/24/21 04:25 Bite Cells Not Reportable 02/24/21 04:25 Crenated Cell Not Reportable 02/24/21 04:25 Elliptocytes Not Reportable 02/24/21 04:25 Acanthocytes (Spur) Not Reportable 02/24/21 04:25 Rouleaux Not Reportable 02/24/21 04:25 Hemoglobin C Crystals Not Reportable 02/24/21 04:25 Schistocytes Not Reportable 02/24/21 04:25 Malaria parasites Not Reportable 02/24/21 04:25 [place] Bodies Not Reportable 02/24/21 04:25 Hem Pathologist Commnt No 02/24/21 04:25 PT 14.6 Sec. (12.2-14.9) 03/03/21 Unknown INR 1.15 (0.87-1.13) H 03/03/21 Unknown D-Dimer 6536.84 ng/mlDDU (0-234) H 02/25/21 09:03 ABG pH 7.361 (7.320-7.450) 03/07/21 03:33 POC ABG pCO2 60.0 mmHg (32.0-48.0) H 03/07/21 03:33 ABG pCO2 72.4 mm Hg 03/06/21 17:45 POC ABG pO2 76.2 mmHg (83-108) L 03/07/21 03:33 ABG pO2 78.1 mm Hg (80.0-90.0) L 03/06/21 17:45 POC ABG HCO3 33.2 03/07/21 03:33 ABG HCO3 33.7 mmol/L (20.0-26.0) H 03/06/21 17:45 ABG O2 Saturation 95.1 (0-100) 03/07/21 03:33 ABG O2 Content 13.5 (0.0-44) 03/06/21 17:45 POC ABG Base Excess 6.9 03/07/21 03:33 ABG Base Excess 5.5 mmol/L (-2.0-3.0) H 03/06/21 17:45 ABG Hemoglobin 7.7 (12.0-17.5) L 03/07/21 03:33 ABG Oxyhemoglobin 93.2 (94-98) L 03/07/21 03:33 ABG Carboxyhemoglobin 2.3 % (0.0-5.0) 03/06/21 17:45 ABG Methemoglobin 0.3 (0.0-1.5) 03/07/21 03:33 ABG Sodium 148.6 mmol/L (136.0-145.0) H 03/07/21 03:33 ABG Potassium 3.7 mmol/L (3.40-4.50) 03/07/21 03:33 ABG Chloride 112.0 mmol/L (98-107) H 03/07/21 03:33 ABG Glucose 173 mg/dL (65-95) H 03/07/21 03:33 Oxyhemoglobin 92.3 % (95.0-99.0) L 03/06/21 17:45 Carboxyhemoglobin 1.7 (0.5-1.5) H 03/07/21 03:33 FiO2 55 % 03/06/21 17:45 FiO2 % 55.0 03/07/21 03:33 Sodium 147 mmol/L (137-145) H 03/07/21 03:30 Potassium 3.7 mmol/L (3.6-5.0) 03/07/21 03:30 Chloride 107.4 mmol/L (98-107) H 03/07/21 03:30 Carbon Dioxide 30 mmol/L (22-30) 03/07/21 03:30 Anion Gap 13 mmol/L 03/07/21 03:30 BUN 90 mg/dL (9-20) H 03/07/21 03:30 Creatinine 2.0 mg/dL (0.8-1.3) H 03/07/21 03:30 Estimated GFR 41 ml/min 03/07/21 03:30 BUN/Creatinine Ratio 45 % 03/07/21 03:30 Glucose 158 mg/dL (75-100) H 03/07/21 03:30 POC Glucose 144 mg/dL (70-105) H 03/07/21 05:11 Hemoglobin A1c 6.3 % (4-6) H 02/02/21 16:00 Lactic Acid 1.90 mmol/L (0.7-2.0) 01/24/21 14:38 Calcium 8.0 mg/dL (8.4-10.2) L 03/07/21 03:30 Phosphorus 7.90 mg/dL (2.5-4.5) H 02/21/21 16:35 Magnesium 2.60 mg/dL (1.7-2.3) H 02/21/21 16:35 Ferritin 867.8 ng/mL (30.0-300.0) H 02/26/21 05:48 Total Bilirubin 1.50 mg/dL (0.1-1.2) H 01/26/21 05:47 AST 37 units/L (5-40) 01/26/21 05:47 ALT 29 units/L (7-56) 01/26/21 05:47 Alkaline Phosphatase 70 units/L (35-129) 01/26/21 05:47 Lactate Dehydrogenase 345 units/L (91-180) H 02/19/21 05:45 C-Reactive Protein 5.90 mg/dL (0.00-1.30) H 02/26/21 05:48 Total Protein 7.2 g/dL (6.3-8.2) 01/26/21 05:47 Albumin 2.2 g/dL (3.9-5) L 01/26/21 05:47 Albumin/Globulin Ratio 0.4 % 01/26/21 05:47 Triglycerides 195 mg/dL (2-149) H 02/19/21 05:45 Procalcitonin 18.94 ng/mL (<0.15) 02/16/21 17:09 Arterial Blood Glucose 173 mg/dL (65-95) H 03/07/21 03:33 Arterial Blood Ionized Calcium 4.6 mg/dL (4.6-5.3) 03/07/21 03:33 Urine Color Nehal (Yellow) 01/22/21 22:39 Urine Turbidity Cloudy (Clear) 01/22/21 22:39 Urine pH 5.0 (5.0-7.0) 01/22/21 22:39 Ur Specific [place] 1.017 (1.003-1.030) 01/22/21 22:39 Urine Protein 100 mg/dl mg/dL (Negative) 01/22/21 22:39 Urine Glucose (UA) Neg mg/dL (Negative) 01/22/21 22:39 Urine Ketones Neg mg/dL (Negative) 01/22/21 22:39 Urine Blood Mod (Negative) 01/22/21 22:39 Urine Nitrite Neg (Negative) 01/22/21 22:39 Urine Bilirubin Neg (Negative) 01/22/21 22:39 Urine Urobilinogen 2.0 mg/dL (<2.0) 01/22/21 22:39 Ur Leukocyte Esterase Mod (Negative) 01/22/21 22:39 Urine WBC (Auto) < 1.0 /HPF (0.0-6.0) 01/22/21 22:39 Urine RBC (Auto) < 1.0 /HPF (0.0-6.0) 01/22/21 22:39 U Epithel Cells (Auto) < 1.0 /HPF (0-13.0) 01/22/21 22:39 Urine Osmolality 416 Mosm/kg 01/30/21 12:15 Urine Total Volume 1800 ml 03/05/21 Unknown Urine Total Volume 1800 ml 03/05/21 Unknown Urine Creatinine 65.9 mg/dL (0.1-20.0) H 03/05/21 Unknown Urine Creatinine 66.1 mg/dL (0.1-20.0) H 03/05/21 Unknown Ur Creatinine 24 Hour 1.2 (0.8-2.8) 03/05/21 Unknown Height (in) 68.0 inches 03/05/21 Unknown Weight (lb) 283.3 lbs 03/05/21 Unknown Creatinine Clearance 26 03/05/21 Unknown Urine Sodium 28 mmol/L 01/22/21 22:39 Nasal Screen MRSA (PCR) Negative (Negative) 02/02/21 13:20 Random Vancomycin 13.7 ug/mL (0-40.0) 02/07/21 10:40 Coronavirus (PCR) Positive (Negative) A 03/02/21 08:35 Hepatitis A IgM Ab Non-reactive (NonReactive) 02/03/21 Unknown Hep Bs Antigen Non-reactive (Negative) 02/03/21 Unknown Hep B Core IgM Ab Non-reactive (NonReactive) 02/03/21 Unknown Hepatitis C Antibody Non-reactive (NonReactive) 02/03/21 Unknown Blood Type B POSITIVE 03/03/21 Unknown Antibody Screen Negative 03/03/21 Unknown Crossmatch See Detail 03/03/21 Unknown Black/IV: Voiding Method Indwelling Catheter Active Medications - Current Medications Current Medications: Generic Name Dose Route Start Last Admin Trade Name Freq PRN Reason Stop Dose Admin Acetaminophen 650 mg 01/24/21 12:58 02/25/21 13:31 Acetaminophen 325 Mg/10.15 Ml Oral Liqd Unit Dose FEEDTUBE 650 mg Q6H PRN Administration Pain, Mild (1-3) Lipase/Protease/Amylase 1 each 01/26/21 14:25 Lipase 10,500/Protease 25,000/Amylase 43,750 (Units) Dr Cap FEEDTUBE PRN PRN For Clogged Feeding Tube Dextrose 50 ml 01/27/21 07:24 Dextrose 50% In Water (25gm) 50 Ml Syringe IV Q30MIN PRN Hypoglycemia Protocol Fentanyl 50 mcg 01/22/21 22:39 02/25/21 10:25 Fentanyl 100 Mcg/2 Ml Inj IV 50 mcg Q10MIN PRN Administration ANALGESIA Heparin Sodium (Porcine) 2,000 unit 02/11/21 09:38 02/21/21 21:25 Heparin 10,000 Units/10 Ml Vial IV 2,000 unit SAGRARIO PRN Administration hemodialysis Heparin Sodium (Porcine) 5,000 unit 02/19/21 14:00 03/07/21 06:20 Heparin 5,000 Unit/1 Ml Vial SUB-Q 5,000 unit Q8HR CECE Administration Fentanyl Citrate 2,000 mcg in 100 mls @ 6.124 mls/hr 01/22/21 23:00 03/07/21 06:19 Fentanyl Drip Premix IV 1 mcg/kg/hr TITR CECE 6.124 mls/hr Administration Protocol 1 MCG/KG/HR Propofol 1,000 mg in 100 mls @ 3.674 mls/hr 01/22/21 23:45 02/21/21 08:30 Diprivan 10 Mg/Ml IV 0 mcg/kg/min TITR CECE 0 mls/hr Titration Protocol 5 MCG/KG/MIN Norepinephrine 4 mg in 250 mls @ 7.5 mls/hr 01/28/21 14:00 02/22/21 18:27 Levophed Drip 4 Mg/Ns 250 Ml IV 0 mcg/min TITR CECE 0 mls/hr Titration Protocol 2 MCG/MIN Dexmedetomidine HCl 1,000 mcg/ 260 mls @ 6.368 mls/hr 01/30/21 20:00 03/07/21 03:45 Sodium Chloride IV 1 mcg/kg/hr TITRATE CECE 31.842 mls/hr Titration Protocol 0.2 MCG/KG/HR Sodium Chloride 100 mls @ 999 mls/hr 02/27/21 11:00 Nacl 0.9% IV SAGRARIO PRN Hypotension Lansoprazole 30 mg 02/18/21 10:00 03/06/21 09:51 Lansoprazole 30 Mg Solutab FEEDTUBE 30 mg QDAY CECE Administration Neomycin/Polymyxin/Bacitracin 1 applic 03/02/21 15:00 03/07/21 09:02 Neomy 3.5 Mg/Bacit 400 Units/Poly B 5000 Units/Gm Oint Packet TP Not Given TID CECE Senna/Docusate Sodium 1 tab 02/25/21 10:00 03/06/21 21:03 Sennosides/Docusate Sodium 8.6/50 Mg Tab PO Not Given BID CECE Simple Syrup 15 ml 01/26/21 14:25 02/21/21 21:24 Simple Syrup 15 Ml FEEDTUBE 15 ml PRN PRN Administration Hypoglycemia Simple Syrup 30 ml 01/26/21 14:25 Simple Syrup 15 Ml FEEDTUBE PRN PRN Hypoglycemia Sodium Bicarbonate 325 mg 01/26/21 14:25 Sodium Bicarbonate 325 Mg Tab FEEDTUBE PRN PRN For Clogged Feeding Tube Sodium Hypochlorite 1 applic 03/05/21 22:00 03/06/21 21:03 Sodium Hypochlorite, [place] 1/2 Strength (0.25%) 473 Ml Topical Soln TP 1 applicatio BID CECE Administration Nutrition/Malnutrition Assess - Dietary Evaluation Nutrition/Malnutrition Findings: Nutrition Notes Start: 01/26/21 13:59 Freq: Status: Active Protocol: Document 03/04/21 08:52 AT (Rec: 03/04/21 08:58 AT [id number]) Co-Sign 03/04/21 08:52 MK Nutrition Notes Initial or Follow up Reassessment Current Diagnosis Acute Kidney Injury,Diabetes, Sepsis,Hypertension, Respiratory Failure, Hyperlipidemia Other Pertinent Diagnosis on HD, COVID-19 (+), bilat pneu Current Diet TF - Nepro at 46 ml/hr Labs/Tests BUN 78 Cr 2.5 BG 131 Pertinent Medications Fentanyl Height 5 ft 8 in Weight 105 kg Standard Body Weight (kg) 70.00 BMI 35.2 Weight change and time frame Wt change noted. Weight Status Obese Subjective/Other Information Follow up for TF tolerance. Visited pt at bedside and observed TF running at goal rate of 46 mL/hr. Pt remains on vent. Per RN, pt is tolerating TF without incident . Percent of energy/protein needs met: 100%/85% Burn Absent Trauma Absent GI Symptoms Constipation Difficulty In Swallowing Skin Integrity/Comment pressure ulcer to lips Current % PO Negligible Minimum of two criteria No Fluid Accumulation Moderate to Severe (severe) #2 Nutrition Diagnosis Increased nutrient needs ( specify in comment below) Diagnosis Progress(for reassessment Continues documentation) #1 Nutrition Diagnosis Inadequate oral intake Diagnosis Progress(for reassessment Continues documentation) Is patient on ventilator? Yes Is Patient Ambulatory and/or Out of Bed No REE-([facility]-confined to bed) 2194.092 Kcal/Kg value to use for calculation 17 Approximate Energy Requirements Using 1785 kcal/Kg Calculation Used for Recommendations Kcal/kg Additional Notes PRO needs: >105g (>1.2 g/kg AdBW 87.5 kg) Fluid needs: 500 + total output or per MD Nutrition Intervention Change Diet Order: Continue TF Nutrition Support: Nepro at 46 ml/hr with a free water flush of 200 ml q4h. Kcal 1,987 Protein (gm) 89 Fluid (mL) 803 Goal #1 TF tolerance Goal #2 TF to meet at least 75% energy and pro needs Anticipated Discharge Needs: unable to determine at this time Follow-Up By: 03/09/21 Additional Comments F/U for stable TF
[2021-03-07] MEDS: LANSOPRAZOLE 30 MG SOLUTAB FEEDTUBE SCH (12:36)
[2021-03-07] MEDS: SENNOSIDES/DOCUSATE SODIUM 8.6/50 MG TAB PO SCH ×2 (12:36→22:17)
[2021-03-07] MEDS: ACETAMINOPHEN 325 MG/10.15 ML ORAL LIQD UNIT DOSE FEEDTUBE PRN (22:17)
[2021-03-08] MEDS: fentaNYL DRIP Premix 2,000 MCG/100 ML BAG IV SCH ×4 (00:08→20:59)
[2021-03-08 04:52] LABS: Calcium 7.9 mg/dL (8.4-10.2)
[2021-03-08] MEDS: dexmedeTOMIDine 1,000 MCG in SODIUM CHLORIDE 0.9% 250ML 250 ML IV SCH ×3 (05:09→19:45)
[2021-03-08] MEDS: HEPARIN 5,000 UNIT/1 ML VIAL SUB-Q SCH ×3 (05:18→21:00)
[2021-03-08] MEDS: NEOMY 3.5 MG/BACIT 400 UNITS/POLY B 5000 UNITS/GM OINT PACKET TP SCH ×3 (07:57→21:00)
[2021-03-08] MEDS: LANSOPRAZOLE 30 MG SOLUTAB FEEDTUBE SCH (09:51)
[2021-03-08] MEDS: SODIUM HYPOCHLORITE, DAKIN'S 1/2 STRENGTH (0.25%) 473 ML TOPICAL SOLN TP SCH ×2 (09:51→22:00)
[2021-03-08] MEDS: SENNOSIDES/DOCUSATE SODIUM 8.6/50 MG TAB PO SCH ×2 (09:51→21:01)
--- NOTE | 2021-03-08 10:58 | Progress Note ---
Assessment and Plan 60 y/o male with ARDS secondary most likely to COVID 19 pneumonia. 03/08/21: Increase PEEP back up to 16. ABG in am. Continue left IJ as patient has no other peripheral access and none was able to be obtained. Renal function improving and patient is dumping more urine. Be Mindful of BP and if drops, would start replacing volume 1:1. Overall prognosis is still poor. Have not spoken with family in several days. If aggressive measures are pursued, patient will need to go home with family as he has no funding and would not be candidate for prison care. 03/07/21: Will keep HD catheter as IV for now. There could be some small clot in the left IJ but patient appears to be asymptomatic at present. Monitor fever curve. Wean FiO2 as tolerated. Poor prognosis. 03/06/21: Will change patient back to PRVC. TV of 500, RR of 22, FiO2 of 55% and PEEP of 14. Repeat ABG in one hour after changes. Will speak with family about what the next steps could look like if patient able to obtain trach. 03/05/21: Increase RR to 40 as patient is on Assist Control/PC. This was changed back on 02/25. Will speak with RT as to why. Will also give 1 bottle of Mag Citrate today. Guarded prognosis. 03/04/21: Wean FiO2 for sats >88%. Will call family on tomorrow to give further updates and prep them for the possibility of the patient having to come home, maybe even on the vent. 03/03/21: Continue to wean FiO2 as tolerated. Would wean this first before weaning PEEP any further. Sedation only as needed but if placed back on continu ous sedation, needs to have a holiday (break) every day. HD per renal. Transfusing 1 unit of PRBC's tomorrow. Unfortunately, mental status is going to be a large barrier for this patient. He likely has suffered some oxygen toxicity from prolonged time on high levels of oxygen (greater 60%) for several weeks. Will attempt to have a family meeting regarding further care. Patient is not funded, will need HD long term acute care registered nurse and likely will require trach for further weaning. Ultimately, if patient is able to leave the hospital, his only option would be to go home unless family could fund a facility on their own. Guarded prognosis remains. 02/23/21: Despite oxygen numbers looking better, now overall concern shifts somewhat towards mental state. Will continue to monitor for the next several d ays. However he has been on large amounts of oxygen therapy for a long time and could have some damage to his brain from this. Plan is to update the family tomorrow on current clinical state. His prognosis has been poor and now with mental state prognosis is worsening. HD per renal. Continue to wean FiO2 for sats >88% 02/22/21: Overall clinical state continues to waxes and wanes. Back up to 80%. Will call family tomorrow to update. Had HD last night, will likely have HD again on Tuesday. Very very guarded prognosis. Will send Triglyceride level anyway given recent change. 02/21/21: Continue to wean FiO2 for sats >88%. Down to 70 now and tolerating. Diprovan is off, nursing working to wean others as well. Can hold on triglycerides now that diprovan is off. Guarded prognosis. 02/20/21: HD today, goal is 3 liters. Continue sedation, did have to increase Diprovan but this is ok. Will need to check levels soon. BM complete. Continue prophylactic anticoagulation. Guarded prognosis. 02/19/21: HD per renal, likely tomorrow. Continue sedation. Has not had a BM so will give full dose of mag citrate today. STarted prophylactic anticoagulation. Wean FiO2 as tolerated. Will call family tomorrow. 02/18/21: HD per renal. continue sedation to help with oxygenation. Overall prognosis remains very guarded to poor. [facility] has been speaking with family so will defer to them. Currently patient is not a candidate for trach given his oxygen and peep requirements. 02/17/21: Fine with cutting back on HD as not really helped with oxygenation. Continue to wean as tolerated for sats >88% and PaO2 >55. Sedation to achieve negative rass scoring. very very guarded to poor prognosis. 02/16/21: HD now. Wean FiO2 for sats> 88%. Agree with stopping ativan and holding on starting diprovan to see if the patient truly needs it. pH holding off bicarb drip goal is >7.2. Very very guarded to poor prognosis. 02/13/21: HD again now. Replace electrolytes per renal. Continue abx therapy per ID. Will get RT to wean FiO2 as not done on yesterday. Will restart diprovan post HD and stop ativan. Check Levels (Triglycerides on Tue or Tuesday). Can stop bicarb drip however must make sure that ABG is checked daily to make sure that pH is good. Very very guarded prognosis. 02/12/21: HD again today. Had a 12 second run of VTACH today as well. Stable. K is low, checking mag levels. Will alert Renal so they can adjust bath as needed. Post HD will start to wean FiO2 again. Unable to prone as patient does not tolerate. Repeat blood cultures negative and first set only showing Coag Negative Staph. Prognosis still remains very very guarded to poor. Will cons ider restarting Diprovan tomorrow. Patient now intubated for 20 days now but not candidate for trach yet given elevated PEEP and FiO2 levels but did discuss on rounds. 02/11/21: Vascath placed today for HD. Orders already in. Wean FiO2 for sats >88%. Abx per ID. Repeat cultures so far negative. Given persistent fevers, will check upper ext dopplers. Prognosis still remains guarded. 02/10/21: Triglycerides improved but current sedation is adequate so will hold on stopping ativan to add propofol back. Awaiting Labs from this morning. Plan to replace HD catheter tomorrow morning as early as possible. Fever curve is trending down. Continue bicarb drip for now. Prognosis remains guarded. WIll speak with family tomorrow to update. 02/09/21: Repeat Triglycerides today. Follow up repeat blood cultures. Given continued fever will hold on replacing vascath today. If fever free the next 24 hours, can place in the morning or Tuesday morning. Will likely need blood with next HD session. Continue bicarb drip to help manage respiratory as well as metabolic acidosis. Wean FiO2 for sats >88% and PaO2 >55. Overall prognosis remains guarded to poor. 02/08/21: Picc out today. Will repeat culture if patient spikes again today. Plan to replace HD catheter either late tomorrow or Tuesday morning. Continue current level of sedation. Abx therapy per ID. Wean FiO2 as tolerated, doubt will be able to do much until we can resume HD. Guarded prognosis. Replaced potassium. Will need to check in the morning. Will repeat K later this afternoon. 02/07/21: Biggest issue now is that patient's numbers are better with HD but now with bacteremia, concern for line infection. ID is correct in requesting line holiday. Has a picc and an Right IJ Dialysis catheter with 3 ports. Currently getting HD today. Have not seen renal yet. Will pull right IJ line post HD and plan to replace it Tuesday evening or Tuesday. Continue bicarb drip for now and will keep picc as patient has been requiring levophed. If able to be weaned off levophed, will remove picc either tomorrow or Tuesday. Continue Ativan, Precedex and Fent drips, repeat Triglycerides on Tuesday. Very very guarded prognosis. Will remove Black today as well. 02/06/21: Will add bicarb drip at 125/hr. Giving 2 amps of NaHCO3 push now. Will repeat ABG this afternoon, may just ask for Art Line if possible. HD today per renal and I spoke with them about the bicarb drip. Long discussion with Sister, Significant and other and another family member on the phone on yesterday. I tried my best to explain the severity of the clinical state but not sure if they fully understood. The patient is very very ill and history suggests that his outcome will be poor (intubated with covid and renal failure on dialysis). This was expressed with the family. Will continue all supportive measures. Checking triglyceride levels today. 02/05/21: WIll increase PEEP to 16. Can increase pressors if needed for BP control during HD. Follow up cultures. If negative will scan legs and arms again for VTE. Repeat ABG at 1400 today. Will speak with sister and Girlfriend on phone today. 02/04/21: HD again today per renal notes. Likely will need daily HD. New fevers. Will draw blood and urine cultures if able to still make urine.. Repeat CXR. May need to check dopplers if all of those studies are negative. Wean FIO2 as tolerated. Unable to tolerate proning. Guarded to poor prognosis. 02/03/21: HD today per renal. Wean FiO2 as tolerated. No further proning as patient cannot tolerate it, however with volume removal, may consider in the future. Use pressors to keep MAPs 65 and greater for HD purporses so volume can be removed. (IJ was wide open (filled with blood)) with patient sitting up at 45 degrees. Guarded prognosis. 02/02/21: After renal speaks with family, will place vascath today. Agree with bicarb drip but will order some pushes now to help with pH. Overall prognosis is very very guarded to poor now that patient is COVID positive and requiring renal replacement therapy. Mortality is very high in these patients. Continue steroid therapy. Unable to tolerate proning. 01/30/21: Will plan for proning later today. Goal will be at least 12hrs but long is okay. Speaking with pharmacy to see if we can get paralytic for a longer period of time. Regardless will prone. Continue heavy sedation. BP stable. Continue steroids. Very very guarded prognosis. 01/29/21: will increase tidal volume and/or increase respiratory rate. Repeat ABG this afternoon. Continue paralytic and adequate sedation. Continue steroid and remdesivir, follow up any renal recs. Prognosis remains guarded. Wean Fio2 for sats >88% 01/28/21: Increased PEEP to 16. Will paralyze patient today and increase sedation. Ordering picc line for possible vasopressor therapy needs. Continue BID steroids. Renal function is slightly better today with fluids but could be making oxygenation worse. Not able to diurese. Still making urine. Continue Remdesivir. Watch for fever curve. If not improvement in the next 24 hours with paralyzing, will prone tomorrow morning. 01/27/21: Continue PEEP at 14. No weaning until FiO2 is at or below 40-45%. Continue anticoagulation. Getting Remdesivir now. Continue BID steroids. Renal has increased the fluids. Monitor urine output and renal function. Overall prognosis is very very guarded, especially if renal status worsens. 01/26/21: Increase PEEP to 14. Will add Precedex therapy. If patient does not respond to increases in PEEP may need to prone. Will place patient on lovenox and will feed patient. Remdesivir coming. Continue BID steroids. Prognosis is guarded. 01/25/21: Hold on proning today. Continue BID steroids. ABG this AM was adequate. Pending abg tomorrow, may increase PEEP if not able to wean FiO2 any further. Per charting Remdesivir to arrive tomorrow. Guarded prognosis. 01/24/21: Continue BID steroids. No abg done this am but able to wean FiO2. Will obtain ABG in the am. Hold on proning for right now. Renal following, would like to diurese but they are given fluids for deisi. Agree with ID assessment and note. Guarded prognosis. 1. Increase steroids to BID given size 2. Check with ID to see if he is a candidate for remdesivir or any other experiemental therapy 3. Hold on proning for right now 4. Renal consulted and giving IVF's currently Guarded prognosis. CCT 31 minutes. Subjective Date of service: 03/08/21 Principal diagnosis: DEISI Interval history: Had some desats to the 80's last night. FiO2 increased up to 70%. PaO2 was in the 70's this am. PEEP at 14. Objective Vital Signs - 12hr 03/07/21 03/07/21 03/07/21 23:00 23:11 23:30 Temperature Pulse Rate 100 H 97 H 96 H Pulse Rate [ From Monitor] Respiratory 32 H 32 H 32 H Rate Blood Pressure 88/50 85/52 92/51 O2 Sat by Pulse 91 90 Oximetry 03/08/21 03/08/21 03/08/21 00:00 00:29 00:30 Temperature 97.5 F L Pulse Rate 93 H 95 H 96 H Pulse Rate [ 104 H From Monitor] Respiratory 29 H 30 H Rate Blood Pressure 88/46 95/51 95/51 O2 Sat by Pulse 97 93 93 Oximetry 03/08/21 03/08/21 03/08/21 01:00 01:30 02:00 Temperature Pulse Rate 99 H 98 H 96 H Pulse Rate [ From Monitor] Respiratory 31 H 32 H 30 H Rate Blood Pressure 97/55 97/49 99/53 O2 Sat by Pulse 94 94 96 Oximetry 03/08/21 03/08/21 03/08/21 02:30 03:00 03:30 Temperature Pulse Rate 96 H 100 H 102 H Pulse Rate [ From Monitor] Respiratory 31 H 31 H 31 H Rate Blood Pressure 101/58 99/59 98/62 O2 Sat by Pulse 96 97 Oximetry 03/08/21 03/08/21 03/08/21 04:00 04:14 04:30 Temperature 98.7 F Pulse Rate 102 H 103 H 104 H Pulse Rate [ 104 H From Monitor] Respiratory 20 32 H Rate Blood Pressure 93/60 93/60 101/62 O2 Sat by Pulse 97 96 94 Oximetry 03/08/21 03/08/21 03/08/21 05:00 05:31 06:00 Temperature Pulse Rate 105 H 102 H 110 H Pulse Rate [ From Monitor] Respiratory 31 H 16 34 H Rate Blood Pressure 98/62 110/68 110/68 O2 Sat by Pulse 94 98 97 Oximetry 03/08/21 03/08/21 03/08/21 06:30 07:00 07:30 Temperature Pulse Rate 107 H 104 H 104 H Pulse Rate [ From Monitor] Respiratory 33 H 32 H 34 H Rate Blood Pressure 119/59 114/59 118/62 O2 Sat by Pulse 95 94 92 Oximetry 03/08/21 03/08/21 03/08/21 08:00 08:31 09:00 Temperature 98.0 F Pulse Rate 103 H 95 H 92 H Pulse Rate [ 103 H From Monitor] Respiratory 34 H 41 H Rate Blood Pressure 128/69 107/57 110/57 O2 Sat by Pulse 92 91 92 Oximetry 03/08/21 09:02 Temperature Pulse Rate 92 H Pulse Rate [ From Monitor] Respiratory Rate Blood Pressure 110/57 O2 Sat by Pulse 93 Oximetry Constitutional: other (sedated) Eyes: non-icteric ENT: other (orally intubated, critically ill) Neck: supple Effort: mildly labored (tachypneic) Ascultation: Bilateral: clear, other (coarse BS bilaterally) Percussion: Bilateral: not dull Cardiovascular: regular rate and rhythm (no mrg) Gastrointestinal: normoactive bowel sounds Integumentary: normal Extremities: no cyanosis, no edema, pink and warm Neurologic: unable to assess Psychiatric: other (unable to assess) CBC and BMP: 03/07/21 08:01 03/08/21 04:20 ABG, PT/INR, D-dimer: ABG ABG pH 7.328 (7.320-7.450) 03/08/21 02:59 POC ABG pCO2 61.8 mmHg (32.0-48.0) H 03/08/21 02:59 ABG pCO2 72.4 mm Hg 03/06/21 17:45 POC ABG pO2 76.5 mmHg (83-108) L 03/08/21 02:59 ABG pO2 78.1 mm Hg (80.0-90.0) L 03/06/21 17:45 POC ABG HCO3 31.7 03/08/21 02:59 ABG O2 Saturation 94.5 (0-100) 03/08/21 02:59 PT/INR, D-dimer PT 14.6 Sec. (12.2-14.9) 03/03/21 Unknown INR 1.15 (0.87-1.13) H 03/03/21 Unknown D-Dimer 6536.84 ng/mlDDU (0-234) H 02/25/21 09:03 Abnormal lab findings: Abnormal Labs 01/22/21 01/22/21 01/22/21 22:39 22:57 22:57 WBC RBC Hgb Hct MCV MCH MCHC RDW Plt Count Lymph % (Auto) 6.6 L Lymph # (Auto) 0.5 L Seg Neutrophils % 87.6 H Seg Neuts % (Manual) Lymphocytes % (Manual) Monocytes % (Manual) Nucleated RBC % Seg Neutrophils # Seg Neutrophils # Man Lymphocytes # (Manual) Monocytes # (Manual) Eosinophils # (Manual) INR D-Dimer ABG pH POC ABG pCO2 POC ABG pO2 ABG pO2 ABG HCO3 ABG O2 Saturation ABG Base Excess ABG Hemoglobin ABG Oxyhemoglobin ABG Sodium ABG Potassium ABG Chloride ABG Glucose Oxyhemoglobin Carboxyhemoglobin Sodium 129 L Potassium 3.4 L Chloride 90.4 L Carbon Dioxide BUN 34 H Creatinine 1.5 H Glucose 146 H POC Glucose Hemoglobin A1c Lactic Acid Calcium 7.8 L Phosphorus Magnesium Ferritin Total Bilirubin AST 75 H ALT 57 H Lactate Dehydrogenase C-Reactive Protein Albumin 2.9 L Triglycerides Arterial Blood Glucose Arterial Blood Ionized Calcium Urine Creatinine 301.2 H Coronavirus (PCR) Crossmatch 01/22/21 01/22/21 01/22/21 22:57 22:57 22:57 WBC RBC Hgb Hct MCV MCH MCHC RDW Plt Count Lymph % (Auto) Lymph # (Auto) Seg Neutrophils % Seg Neuts % (Manual) Lymphocytes % (Manual) Monocytes % (Manual) Nucleated RBC % Seg Neutrophils # Seg Neutrophils # Man Lymphocytes # (Manual) Monocytes # (Manual) Eosinophils # (Manual) INR D-Dimer 1173.89 H ABG pH POC ABG pCO2 POC ABG pO2 ABG pO2 ABG HCO3 ABG O2 Saturation ABG Base Excess ABG Hemoglobin ABG Oxyhemoglobin ABG Sodium ABG Potassium ABG Chloride ABG Glucose Oxyhemoglobin Carboxyhemoglobin Sodium Potassium Chloride Carbon Dioxide BUN Creatinine Glucose 149 H POC Glucose Hemoglobin A1c Lactic Acid 2.10 H* Calcium Phosphorus Magnesium Ferritin Total Bilirubin AST ALT Lactate Dehydrogenase 685 H C-Reactive Protein 30.40 H Albumin Triglycerides Arterial Blood Glucose Arterial Blood Ionized Calcium Urine Creatinine Coronavirus (PCR) Crossmatch 01/22/21 01/23/21 01/23/21 22:57 08:41 10:01 WBC RBC Hgb Hct MCV MCH MCHC RDW Plt Count Lymph % (Auto) Lymph # (Auto) Seg Neutrophils % Seg Neuts % (Manual) Lymphocytes % (Manual) Monocytes % (Manual) Nucleated RBC % Seg Neutrophils # Seg Neutrophils # Man Lymphocytes # (Manual) Monocytes # (Manual) Eosinophils # (Manual) INR D-Dimer ABG pH POC ABG pCO2 POC ABG pO2 ABG pO2 ABG HCO3 ABG O2 Saturation ABG Base Excess ABG Hemoglobin ABG Oxyhemoglobin ABG Sodium ABG Potassium ABG Chloride ABG Glucose Oxyhemoglobin Carboxyhemoglobin Sodium 131 L Potassium Chloride 88.7 L Carbon Dioxide 18 L BUN 36 H Creatinine 1.6 H Glucose 147 H POC Glucose Hemoglobin A1c Lactic Acid Calcium 7.5 L Phosphorus Magnesium Ferritin 1207.0 H Total Bilirubin AST ALT Lactate Dehydrogenase C-Reactive Protein Albumin Triglycerides Arterial Blood Glucose Arterial Blood Ionized Calcium Urine Creatinine Coronavirus (PCR) Positive A Crossmatch 01/23/21 01/23/21 01/24/21 20:49 Unknown 00:10 WBC RBC Hgb Hct MCV MCH MCHC RDW Plt Count Lymph % (Auto) Lymph # (Auto) Seg Neutrophils % Seg Neuts % (Manual) Lymphocytes % (Manual) Monocytes % (Manual) Nucleated RBC % Seg Neutrophils # Seg Neutrophils # Man Lymphocytes # (Manual) Monocytes # (Manual) Eosinophils # (Manual) INR D-Dimer ABG pH POC ABG pCO2 POC ABG pO2 ABG pO2 165.4 H ABG HCO3 ABG O2 Saturation ABG Base Excess -2.5 L ABG Hemoglobin ABG Oxyhemoglobin ABG Sodium ABG Potassium ABG Chloride ABG Glucose Oxyhemoglobin Carboxyhemoglobin Sodium 130 L Potassium Chloride 91.0 L Carbon Dioxide 20 L BUN 52 H Creatinine 3.8 H D Glucose 150 H POC Glucose 125 H Hemoglobin A1c Lactic Acid Calcium 8.0 L Phosphorus Magnesium Ferritin Total Bilirubin AST 42 H ALT Lactate Dehydrogenase C-Reactive Protein Albumin 2.4 L Triglycerides Arterial Blood Glucose Arterial Blood Ionized Calcium Urine Creatinine Coronavirus (PCR) Crossmatch 01/24/21 01/24/21 01/24/21 05:05 05:05 05:05 WBC 14.0 H RBC Hgb Hct MCV 95 H MCH 33 H MCHC RDW Plt Count Lymph % (Auto) Lymph # (Auto) Seg Neutrophils % Seg Neuts % (Manual) 91.0 H Lymphocytes % (Manual) 4.0 L Monocytes % (Manual) Nucleated RBC % Seg Neutrophils # Seg Neutrophils # Man 12.7 H Lymphocytes # (Manual) 0.6 L Monocytes # (Manual) Eosinophils # (Manual) INR D-Dimer 6159.48 H ABG pH POC ABG pCO2 POC ABG pO2 ABG pO2 ABG HCO3 ABG O2 Saturation ABG Base Excess ABG Hemoglobin ABG Oxyhemoglobin ABG Sodium ABG Potassium ABG Chloride ABG Glucose Oxyhemoglobin Carboxyhemoglobin Sodium Potassium Chloride Carbon Dioxide BUN Creatinine Glucose POC Glucose Hemoglobin A1c Lactic Acid Calcium Phosphorus Magnesium Ferritin 1178.0 H Total Bilirubin AST ALT Lactate Dehydrogenase C-Reactive Protein Albumin Triglycerides Arterial Blood Glucose Arterial Blood Ionized Calcium Urine Creatinine Coronavirus (PCR) Crossmatch 01/24/21 01/24/21 01/24/21 05:05 05:05 05:05 WBC RBC Hgb Hct MCV MCH MCHC RDW Plt Count Lymph % (Auto) Lymph # (Auto) Seg Neutrophils % Seg Neuts % (Manual) Lymphocytes % (Manual) Monocytes % (Manual) Nucleated RBC % Seg Neutrophils # Seg Neutrophils # Man Lymphocytes # (Manual) Monocytes # (Manual) Eosinophils # (Manual) INR D-Dimer ABG pH POC ABG pCO2 POC ABG pO2 ABG pO2 ABG HCO3 ABG O2 Saturation ABG Base Excess ABG Hemoglobin ABG Oxyhemoglobin ABG Sodium ABG Potassium ABG Chloride ABG Glucose Oxyhemoglobin Carboxyhemoglobin Sodium 132 L Potassium Chloride 93.1 L Carbon Dioxide 21 L BUN 57 H Creatinine 3.7 H Glucose 133 H POC Glucose Hemoglobin A1c Lactic Acid 2.20 H* Calcium 7.7 L Phosphorus Magnesium Ferritin Total Bilirubin AST ALT Lactate Dehydrogenase 658 H C-Reactive Protein 33.20 H Albumin 2.4 L Triglycerides Arterial Blood Glucose Arterial Blood Ionized Calcium Urine Creatinine Coronavirus (PCR) Crossmatch 01/24/21 01/24/21 01/24/21 05:34 06:00 17:35 WBC RBC Hgb Hct MCV MCH MCHC RDW Plt Count Lymph % (Auto) Lymph # (Auto) Seg Neutrophils % Seg Neuts % (Manual) Lymphocytes % (Manual) Monocytes % (Manual) Nucleated RBC % Seg Neutrophils # Seg Neutrophils # Man Lymphocytes # (Manual) Monocytes # (Manual) Eosinophils # (Manual) INR D-Dimer ABG pH POC ABG pCO2 POC ABG pO2 ABG pO2 ABG HCO3 ABG O2 Saturation ABG Base Excess ABG Hemoglobin ABG Oxyhemoglobin ABG Sodium ABG Potassium ABG Chloride ABG Glucose Oxyhemoglobin Carboxyhemoglobin Sodium Potassium Chloride Carbon Dioxide BUN Creatinine Glucose POC Glucose 136 H 137 H Hemoglobin A1c Lactic Acid Calcium Phosphorus Magnesium 2.80 H Ferritin Total Bilirubin AST ALT Lactate Dehydrogenase C-Reactive Protein Albumin Triglycerides Arterial Blood Glucose Arterial Blood Ionized Calcium Urine Creatinine Coronavirus (PCR) Crossmatch 01/25/21 01/25/21 01/25/21 04:15 05:40 05:40 WBC RBC Hgb Hct MCV 95 H MCH 33 H MCHC 35 H RDW Plt Count Lymph % (Auto) Lymph # (Auto) Seg Neutrophils % Seg Neuts % (Manual) 95.0 H Lymphocytes % (Manual) 3.0 L Monocytes % (Manual) Nucleated RBC % Seg Neutrophils # Seg Neutrophils # Man 7.8 H Lymphocytes # (Manual) 0.2 L Monocytes # (Manual) Eosinophils # (Manual) INR D-Dimer ABG pH POC ABG pCO2 POC ABG pO2 63.2 L ABG pO2 ABG HCO3 ABG O2 Saturation ABG Base Excess ABG Hemoglobin ABG Oxyhemoglobin 89.6 L ABG Sodium ABG Potassium ABG Chloride ABG Glucose 165 H Oxyhemoglobin Carboxyhemoglobin 0.3 L Sodium Potassium Chloride Carbon Dioxide BUN 67 H Creatinine 3.4 H Glucose 153 H POC Glucose Hemoglobin A1c Lactic Acid Calcium 7.5 L Phosphorus Magnesium Ferritin Total Bilirubin 1.40 H AST 62 H ALT Lactate Dehydrogenase C-Reactive Protein Albumin 2.6 L Triglycerides Arterial Blood Glucose 165 H Arterial Blood Ionized Calcium 4.3 L Urine Creatinine Coronavirus (PCR) Crossmatch 01/25/21 01/25/21 01/25/21 05:59 12:00 17:17 WBC RBC Hgb Hct MCV MCH MCHC RDW Plt Count Lymph % (Auto) Lymph # (Auto) Seg Neutrophils % Seg Neuts % (Manual) Lymphocytes % (Manual) Monocytes % (Manual) Nucleated RBC % Seg Neutrophils # Seg Neutrophils # Man Lymphocytes # (Manual) Monocytes # (Manual) Eosinophils # (Manual) INR D-Dimer ABG pH POC ABG pCO2 POC ABG pO2 ABG pO2 ABG HCO3 ABG O2 Saturation ABG Base Excess ABG Hemoglobin ABG Oxyhemoglobin ABG Sodium ABG Potassium ABG Chloride ABG Glucose Oxyhemoglobin Carboxyhemoglobin Sodium Potassium Chloride Carbon Dioxide BUN Creatinine Glucose POC Glucose 140 H 143 H 149 H Hemoglobin A1c Lactic Acid Calcium Phosphorus Magnesium Ferritin Total Bilirubin AST ALT Lactate Dehydrogenase C-Reactive Protein Albumin Triglycerides Arterial Blood Glucose Arterial Blood Ionized Calcium Urine Creatinine Coronavirus (PCR) Crossmatch 01/25/21 01/26/21 01/26/21 23:41 03:43 05:46 WBC RBC Hgb Hct MCV MCH MCHC RDW Plt Count Lymph % (Auto) Lymph # (Auto) Seg Neutrophils % Seg Neuts % (Manual) Lymphocytes % (Manual) Monocytes % (Manual) Nucleated RBC % Seg Neutrophils # Seg Neutrophils # Man Lymphocytes # (Manual) Monocytes # (Manual) Eosinophils # (Manual) INR D-Dimer ABG pH POC ABG pCO2 POC ABG pO2 70.0 L ABG pO2 ABG HCO3 ABG O2 Saturation ABG Base Excess ABG Hemoglobin ABG Oxyhemoglobin 91.9 L ABG Sodium ABG Potassium ABG Chloride 109.0 H ABG Glucose 165 H Oxyhemoglobin Carboxyhemoglobin Sodium Potassium Chloride Carbon Dioxide BUN Creatinine Glucose POC Glucose 132 H 161 H Hemoglobin A1c Lactic Acid Calcium Phosphorus Magnesium Ferritin Total Bilirubin AST ALT Lactate Dehydrogenase C-Reactive Protein Albumin Triglycerides Arterial Blood Glucose 165 H Arterial Blood Ionized Calcium 4.5 L Urine Creatinine Coronavirus (PCR) Crossmatch 01/26/21 01/26/21 01/26/21 05:47 05:47 05:47 WBC RBC Hgb Hct 35.3 L MCV 96 H MCH 33 H MCHC RDW Plt Count Lymph % (Auto) Lymph # (Auto) Seg Neutrophils % Seg Neuts % (Manual) 96.0 H Lymphocytes % (Manual) 2.0 L Monocytes % (Manual) Nucleated RBC % Seg Neutrophils # Seg Neutrophils # Man Lymphocytes # (Manual) 0.1 L Monocytes # (Manual) Eosinophils # (Manual) INR D-Dimer > 02823 H ABG pH POC ABG pCO2 POC ABG pO2 ABG pO2 ABG HCO3 ABG O2 Saturation ABG Base Excess ABG Hemoglobin ABG Oxyhemoglobin ABG Sodium ABG Potassium ABG Chloride ABG Glucose Oxyhemoglobin Carboxyhemoglobin Sodium Potassium Chloride Carbon Dioxide BUN 57 H Creatinine 2.2 H Glucose 185 H POC Glucose Hemoglobin A1c Lactic Acid Calcium 8.1 L Phosphorus Magnesium Ferritin Total Bilirubin AST ALT Lactate Dehydrogenase C-Reactive Protein Albumin Triglycerides Arterial Blood Glucose Arterial Blood Ionized Calcium Urine Creatinine Coronavirus (PCR) Crossmatch 01/26/21 01/26/21 01/26/21 05:47 05:47 05:47 WBC RBC Hgb Hct MCV MCH MCHC RDW Plt Count Lymph % (Auto) Lymph # (Auto) Seg Neutrophils % Seg Neuts % (Manual) Lymphocytes % (Manual) Monocytes % (Manual) Nucleated RBC % Seg Neutrophils # Seg Neutrophils # Man Lymphocytes # (Manual) Monocytes # (Manual) Eosinophils # (Manual) INR D-Dimer ABG pH POC ABG pCO2 POC ABG pO2 ABG pO2 ABG HCO3 ABG O2 Saturation ABG Base Excess ABG Hemoglobin ABG Oxyhemoglobin ABG Sodium ABG Potassium ABG Chloride ABG Glucose Oxyhemoglobin Carboxyhemoglobin Sodium Potassium Chloride 107.1 H Carbon Dioxide BUN 56 H Creatinine 2.2 H Glucose 188 H POC Glucose Hemoglobin A1c Lactic Acid Calcium 8.0 L Phosphorus Magnesium Ferritin 1178.0 H Total Bilirubin 1.50 H AST ALT Lactate Dehydrogenase 588 H C-Reactive Protein 40.10 H Albumin 2.2 L Triglycerides Arterial Blood Glucose Arterial Blood Ionized Calcium Urine Creatinine Coronavirus (PCR) Crossmatch 01/26/21 01/26/21 01/26/21 11:34 18:17 23:20 WBC RBC Hgb Hct MCV MCH MCHC RDW Plt Count Lymph % (Auto) Lymph # (Auto) Seg Neutrophils % Seg Neuts % (Manual) Lymphocytes % (Manual) Monocytes % (Manual) Nucleated RBC % Seg Neutrophils # Seg Neutrophils # Man Lymphocytes # (Manual) Monocytes # (Manual) Eosinophils # (Manual) INR D-Dimer ABG pH POC ABG pCO2 POC ABG pO2 ABG pO2 ABG HCO3 ABG O2 Saturation ABG Base Excess ABG Hemoglobin ABG Oxyhemoglobin ABG Sodium ABG Potassium ABG Chloride ABG Glucose Oxyhemoglobin Carboxyhemoglobin Sodium Potassium Chloride Carbon Dioxide BUN Creatinine Glucose POC Glucose 129 H 205 H 155 H Hemoglobin A1c Lactic Acid Calcium Phosphorus Magnesium Ferritin Total Bilirubin AST ALT Lactate Dehydrogenase C-Reactive Protein Albumin Triglycerides Arterial Blood Glucose Arterial Blood Ionized Calcium Urine Creatinine Coronavirus (PCR) Crossmatch 01/27/21 01/27/21 01/27/21 02:45 05:29 05:29 WBC RBC 3.58 L Hgb 11.7 L Hct 34.9 L MCV 97 H MCH 33 H MCHC RDW Plt Count Lymph % (Auto) Lymph # (Auto) Seg Neutrophils % Seg Neuts % (Manual) 88.0 H Lymphocytes % (Manual) 7.0 L Monocytes % (Manual) Nucleated RBC % Seg Neutrophils # Seg Neutrophils # Man Lymphocytes # (Manual) 0.5 L Monocytes # (Manual) Eosinophils # (Manual) INR D-Dimer ABG pH 7.319 L POC ABG pCO2 50.7 H POC ABG pO2 63.0 L ABG pO2 ABG HCO3 ABG O2 Saturation ABG Base Excess ABG Hemoglobin ABG Oxyhemoglobin ABG Sodium 145.2 H ABG Potassium 5.1 H ABG Chloride 114.0 H ABG Glucose 178 H Oxyhemoglobin Carboxyhemoglobin Sodium Potassium Chloride Carbon Dioxide BUN Creatinine Glucose POC Glucose Hemoglobin A1c Lactic Acid Calcium Phosphorus Magnesium 4.00 H Ferritin Total Bilirubin AST ALT Lactate Dehydrogenase C-Reactive Protein Albumin Triglycerides Arterial Blood Glucose 178 H Arterial Blood Ionized Calcium Urine Creatinine Coronavirus (PCR) Crossmatch 01/27/21 01/27/21 01/27/21 05:29 05:29 05:31 WBC RBC Hgb Hct MCV MCH MCHC RDW Plt Count Lymph % (Auto) Lymph # (Auto) Seg Neutrophils % Seg Neuts % (Manual) Lymphocytes % (Manual) Monocytes % (Manual) Nucleated RBC % Seg Neutrophils # Seg Neutrophils # Man Lymphocytes # (Manual) Monocytes # (Manual) Eosinophils # (Manual) INR D-Dimer ABG pH POC ABG pCO2 POC ABG pO2 ABG pO2 ABG HCO3 ABG O2 Saturation ABG Base Excess ABG Hemoglobin ABG Oxyhemoglobin ABG Sodium ABG Potassium ABG Chloride ABG Glucose Oxyhemoglobin Carboxyhemoglobin Sodium Potassium 5.2 H Chloride 109.6 H Carbon Dioxide BUN 67 H Creatinine 2.8 H Glucose 195 H POC Glucose 176 H Hemoglobin A1c Lactic Acid Calcium 7.9 L Phosphorus Magnesium Ferritin Total Bilirubin AST ALT Lactate Dehydrogenase C-Reactive Protein Albumin Triglycerides 160 H Arterial Blood Glucose Arterial Blood Ionized Calcium Urine Creatinine Coronavirus (PCR) Crossmatch 01/27/21 01/27/2121 11:27 18:08 23:30 WBC RBC Hgb Hct MCV MCH MCHC RDW Plt Count Lymph % (Auto) Lymph # (Auto) Seg Neutrophils % Seg Neuts % (Manual) Lymphocytes % (Manual) Monocytes % (Manual) Nucleated RBC % Seg Neutrophils # Seg Neutrophils # Man Lymphocytes # (Manual) Monocytes # (Manual) Eosinophils # (Manual) INR D-Dimer ABG pH POC ABG pCO2 POC ABG pO2 ABG pO2 ABG HCO3 ABG O2 Saturation ABG Base Excess ABG Hemoglobin ABG Oxyhemoglobin ABG Sodium ABG Potassium ABG Chloride ABG Glucose Oxyhemoglobin Carboxyhemoglobin Sodium Potassium Chloride Carbon Dioxide BUN Creatinine Glucose POC Glucose 189 H 212 H 175 H Hemoglobin A1c Lactic Acid Calcium Phosphorus Magnesium Ferritin Total Bilirubin AST ALT Lactate Dehydrogenase C-Reactive Protein Albumin Triglycerides Arterial Blood Glucose Arterial Blood Ionized Calcium Urine Creatinine Coronavirus (PCR) Crossmatch 01/28/21 01/28/21 01/28/21 03:58 04:00 04:00 WBC RBC Hgb Hct MCV MCH MCHC RDW Plt Count Lymph % (Auto) Lymph # (Auto) Seg Neutrophils % Seg Neuts % (Manual) Lymphocytes % (Manual) Monocytes % (Manual) Nucleated RBC % Seg Neutrophils # Seg Neutrophils # Man Lymphocytes # (Manual) Monocytes # (Manual) Eosinophils # (Manual) INR D-Dimer > 03498 H ABG pH POC ABG pCO2 POC ABG pO2 52.9 L ABG pO2 ABG HCO3 ABG O2 Saturation ABG Base Excess ABG Hemoglobin ABG Oxyhemoglobin 84.1 L ABG Sodium 148.9 H ABG Potassium ABG Chloride 117.0 H ABG Glucose 194 H Oxyhemoglobin Carboxyhemoglobin Sodium Potassium Chloride Carbon Dioxide BUN Creatinine Glucose POC Glucose Hemoglobin A1c Lactic Acid Calcium Phosphorus Magnesium Ferritin Total Bilirubin AST ALT Lactate Dehydrogenase 679 H C-Reactive Protein 17.10 H Albumin Triglycerides Arterial Blood Glucose 194 H Arterial Blood Ionized Calcium Urine Creatinine Coronavirus (PCR) Crossmatch 01/28/21 01/28/21 01/28/21 04:00 05:00 06:00 WBC RBC 3.59 L Hgb 11.6 L Hct 34.8 L MCV 97 H MCH MCHC RDW Plt Count Lymph % (Auto) Lymph # (Auto) Seg Neutrophils % Seg Neuts % (Manual) 96.0 H Lymphocytes % (Manual) 3.0 L Monocytes % (Manual) Nucleated RBC % Seg Neutrophils # Seg Neutrophils # Man Lymphocytes # (Manual) 0.2 L Monocytes # (Manual) Eosinophils # (Manual) INR D-Dimer ABG pH POC ABG pCO2 POC ABG pO2 ABG pO2 ABG HCO3 ABG O2 Saturation ABG Base Excess ABG Hemoglobin ABG Oxyhemoglobin ABG Sodium ABG Potassium ABG Chloride ABG Glucose Oxyhemoglobin Carboxyhemoglobin Sodium Potassium Chloride Carbon Dioxide BUN Creatinine Glucose POC Glucose 159 H Hemoglobin A1c Lactic Acid Calcium Phosphorus Magnesium Ferritin 798.0 H Total Bilirubin AST ALT Lactate Dehydrogenase C-Reactive Protein Albumin Triglycerides Arterial Blood Glucose Arterial Blood Ionized Calcium Urine Creatinine Coronavirus (PCR) Crossmatch 01/28/21 01/28/21 01/28/21 06:00 06:00 08:12 WBC RBC Hgb Hct MCV MCH MCHC RDW Plt Count Lymph % (Auto) Lymph # (Auto) Seg Neutrophils % Seg Neuts % (Manual) Lymphocytes % (Manual) Monocytes % (Manual) Nucleated RBC % Seg Neutrophils # Seg Neutrophils # Man Lymphocytes # (Manual) Monocytes # (Manual) Eosinophils # (Manual) INR D-Dimer ABG pH POC ABG pCO2 POC ABG pO2 ABG pO2 ABG HCO3 ABG O2 Saturation ABG Base Excess ABG Hemoglobin ABG Oxyhemoglobin ABG Sodium ABG Potassium ABG Chloride ABG Glucose Oxyhemoglobin Carboxyhemoglobin Sodium Potassium Chloride 111.9 H Carbon Dioxide BUN 59 H Creatinine 2.2 H Glucose 189 H POC Glucose 181 H Hemoglobin A1c Lactic Acid Calcium 8.1 L Phosphorus Magnesium 3.20 H Ferritin Total Bilirubin AST ALT Lactate Dehydrogenase C-Reactive Protein Albumin Triglycerides Arterial Blood Glucose Arterial Blood Ionized Calcium Urine Creatinine Coronavirus (PCR) Crossmatch 01/28/21 01/28/21 01/28/21 12:03 16:43 23:51 WBC RBC Hgb Hct MCV MCH MCHC RDW Plt Count Lymph % (Auto) Lymph # (Auto) Seg Neutrophils % Seg Neuts % (Manual) Lymphocytes % (Manual) Monocytes % (Manual) Nucleated RBC % Seg Neutrophils # Seg Neutrophils # Man Lymphocytes # (Manual) Monocytes # (Manual) Eosinophils # (Manual) INR D-Dimer ABG pH POC ABG pCO2 POC ABG pO2 ABG pO2 ABG HCO3 ABG O2 Saturation ABG Base Excess ABG Hemoglobin ABG Oxyhemoglobin ABG Sodium ABG Potassium ABG Chloride ABG Glucose Oxyhemoglobin Carboxyhemoglobin Sodium Potassium Chloride Carbon Dioxide BUN Creatinine Glucose POC Glucose 164 H 198 H 196 H Hemoglobin A1c Lactic Acid Calcium Phosphorus Magnesium Ferritin Total Bilirubin AST ALT Lactate Dehydrogenase C-Reactive Protein Albumin Triglycerides Arterial Blood Glucose Arterial Blood Ionized Calcium Urine Creatinine Coronavirus (PCR) Crossmatch 01/29/21 01/29/21 01/29/21 05:00 05:23 06:00 WBC RBC Hgb Hct MCV MCH MCHC RDW Plt Count Lymph % (Auto) Lymph # (Auto) Seg Neutrophils % Seg Neuts % (Manual) Lymphocytes % (Manual) Monocytes % (Manual) Nucleated RBC % Seg Neutrophils # Seg Neutrophils # Man Lymphocytes # (Manual) Monocytes # (Manual) Eosinophils # (Manual) INR D-Dimer ABG pH 7.119 L POC ABG pCO2 87.1 H POC ABG pO2 ABG pO2 ABG HCO3 ABG O2 Saturation ABG Base Excess ABG Hemoglobin ABG Oxyhemoglobin ABG Sodium 152.5 H ABG Potassium 5.7 H ABG Chloride 120.0 H ABG Glucose 217 H Oxyhemoglobin Carboxyhemoglobin Sodium 151 H Potassium 5.9 H D Chloride 117.8 H Carbon Dioxide BUN 54 H Creatinine 2.2 H Glucose 208 H POC Glucose 180 H Hemoglobin A1c Lactic Acid Calcium 7.9 L Phosphorus Magnesium Ferritin Total Bilirubin AST ALT Lactate Dehydrogenase C-Reactive Protein Albumin Triglycerides Arterial Blood Glucose 217 H Arterial Blood Ionized Calcium Urine Creatinine Coronavirus (PCR) Crossmatch 01/29/21 01/29/21 01/29/21 12:29 17:28 18:05 WBC RBC Hgb Hct MCV MCH MCHC RDW Plt Count Lymph % (Auto) Lymph # (Auto) Seg Neutrophils % Seg Neuts % (Manual) Lymphocytes % (Manual) Monocytes % (Manual) Nucleated RBC % Seg Neutrophils # Seg Neutrophils # Man Lymphocytes # (Manual) Monocytes # (Manual) Eosinophils # (Manual) INR D-Dimer ABG pH POC ABG pCO2 POC ABG pO2 ABG pO2 ABG HCO3 ABG O2 Saturation ABG Base Excess ABG Hemoglobin ABG Oxyhemoglobin ABG Sodium ABG Potassium ABG Chloride ABG Glucose Oxyhemoglobin Carboxyhemoglobin Sodium 151 H Potassium 5.5 H Chloride 118.2 H Carbon Dioxide BUN 52 H Creatinine 2.2 H Glucose 224 H POC Glucose 181 H 203 H Hemoglobin A1c Lactic Acid Calcium 8.0 L Phosphorus Magnesium Ferritin Total Bilirubin AST ALT Lactate Dehydrogenase C-Reactive Protein Albumin Triglycerides Arterial Blood Glucose Arterial Blood Ionized Calcium Urine Creatinine Coronavirus (PCR) Crossmatch 01/29/21 01/29/21 01/29/21 18:13 23:34 Unknown WBC RBC Hgb Hct MCV 101 H MCH MCHC RDW 15.7 H Plt Count Lymph % (Auto) Lymph # (Auto) Seg Neutrophils % Seg Neuts % (Manual) 95.0 H Lymphocytes % (Manual) 3.0 L Monocytes % (Manual) Nucleated RBC % Seg Neutrophils # Seg Neutrophils # Man 8.0 H Lymphocytes # (Manual) 0.3 L Monocytes # (Manual) Eosinophils # (Manual) INR D-Dimer ABG pH 7.223 L POC ABG pCO2 64.8 H POC ABG pO2 63.6 L ABG pO2 ABG HCO3 ABG O2 Saturation ABG Base Excess ABG Hemoglobin ABG Oxyhemoglobin 89.4 L ABG Sodium 152.9 H ABG Potassium 5.3 H ABG Chloride 121.0 H ABG Glucose 227 H Oxyhemoglobin Carboxyhemoglobin Sodium Potassium Chloride Carbon Dioxide BUN Creatinine Glucose POC Glucose 198 H Hemoglobin A1c Lactic Acid Calcium Phosphorus Magnesium Ferritin Total Bilirubin AST ALT Lactate Dehydrogenase C-Reactive Protein Albumin Triglycerides Arterial Blood Glucose 227 H Arterial Blood Ionized Calcium Urine Creatinine Coronavirus (PCR) Crossmatch 01/30/21 01/30/21 01/30/21 04:00 04:00 04:00 WBC RBC Hgb Hct MCV MCH MCHC RDW Plt Count Lymph % (Auto) Lymph # (Auto) Seg Neutrophils % Seg Neuts % (Manual) Lymphocytes % (Manual) Monocytes % (Manual) Nucleated RBC % Seg Neutrophils # Seg Neutrophils # Man Lymphocytes # (Manual) Monocytes # (Manual) Eosinophils # (Manual) INR D-Dimer > 50391 H ABG pH POC ABG pCO2 POC ABG pO2 ABG pO2 ABG HCO3 ABG O2 Saturation ABG Base Excess ABG Hemoglobin ABG Oxyhemoglobin ABG Sodium ABG Potassium ABG Chloride ABG Glucose Oxyhemoglobin Carboxyhemoglobin Sodium Potassium Chloride Carbon Dioxide BUN Creatinine Glucose 234 H POC Glucose Hemoglobin A1c Lactic Acid Calcium Phosphorus Magnesium Ferritin 763.9 H Total Bilirubin AST ALT Lactate Dehydrogenase 424 H C-Reactive Protein 23.90 H Albumin Triglycerides Arterial Blood Glucose Arterial Blood Ionized Calcium Urine Creatinine Coronavirus (PCR) Crossmatch 01/30/21 01/30/21 01/30/21 04:24 05:00 05:16 WBC RBC 3.57 L Hgb 11.3 L Hct 35.4 L MCV 99 H MCH MCHC RDW 15.6 H Plt Count Lymph % (Auto) Lymph # (Auto) Seg Neutrophils % Seg Neuts % (Manual) 97.0 H Lymphocytes % (Manual) 1.0 L Monocytes % (Manual) Nucleated RBC % Seg Neutrophils # Seg Neutrophils # Man 8.6 H Lymphocytes # (Manual) 0.1 L Monocytes # (Manual) Eosinophils # (Manual) INR D-Dimer ABG pH 7.235 L POC ABG pCO2 69.7 H POC ABG pO2 61.0 L ABG pO2 ABG HCO3 ABG O2 Saturation ABG Base Excess ABG Hemoglobin ABG Oxyhemoglobin 89 L ABG Sodium 154.2 H ABG Potassium 5.4 H ABG Chloride 121.0 H ABG Glucose 247 H Oxyhemoglobin Carboxyhemoglobin Sodium Potassium Chloride Carbon Dioxide BUN Creatinine Glucose POC Glucose 238 H Hemoglobin A1c Lactic Acid Calcium Phosphorus Magnesium Ferritin Total Bilirubin AST ALT Lactate Dehydrogenase C-Reactive Protein Albumin Triglycerides Arterial Blood Glucose 247 H Arterial Blood Ionized Calcium Urine Creatinine Coronavirus (PCR) Crossmatch 01/30/21 01/30/21 01/30/21 06:00 11:28 12:00 WBC RBC Hgb Hct MCV MCH MCHC RDW Plt Count Lymph % (Auto) Lymph # (Auto) Seg Neutrophils % Seg Neuts % (Manual) Lymphocytes % (Manual) Monocytes % (Manual) Nucleated RBC % Seg Neutrophils # Seg Neutrophils # Man Lymphocytes # (Manual) Monocytes # (Manual) Eosinophils # (Manual) INR D-Dimer ABG pH POC ABG pCO2 POC ABG pO2 ABG pO2 ABG HCO3 ABG O2 Saturation ABG Base Excess ABG Hemoglobin ABG Oxyhemoglobin ABG Sodium ABG Potassium ABG Chloride ABG Glucose Oxyhemoglobin Carboxyhemoglobin Sodium 152 H Potassium 5.3 H Chloride 120.5 H Carbon Dioxide BUN 50 H Creatinine 2.3 H Glucose 239 H POC Glucose 153 H Hemoglobin A1c Lactic Acid Calcium 8.2 L Phosphorus Magnesium 2.60 H Ferritin Total Bilirubin AST ALT Lactate Dehydrogenase C-Reactive Protein Albumin Triglycerides 293 H Arterial Blood Glucose Arterial Blood Ionized Calcium Urine Creatinine 53.0 H Coronavirus (PCR) Crossmatch 01/30/21 01/30/21 01/31/21 18:49 23:06 04:00 WBC RBC Hgb Hct MCV MCH MCHC RDW Plt Count Lymph % (Auto) Lymph # (Auto) Seg Neutrophils % Seg Neuts % (Manual) Lymphocytes % (Manual) Monocytes % (Manual) Nucleated RBC % Seg Neutrophils # Seg Neutrophils # Man Lymphocytes # (Manual) Monocytes # (Manual) Eosinophils # (Manual) INR D-Dimer ABG pH POC ABG pCO2 POC ABG pO2 ABG pO2 ABG HCO3 ABG O2 Saturation ABG Base Excess ABG Hemoglobin ABG Oxyhemoglobin ABG Sodium ABG Potassium ABG Chloride ABG Glucose Oxyhemoglobin Carboxyhemoglobin Sodium 156 H Potassium 5.9 H Chloride 122.6 H Carbon Dioxide BUN 61 H Creatinine 3.2 H Glucose 205 H POC Glucose 220 H 192 H Hemoglobin A1c Lactic Acid Calcium 8.0 L Phosphorus Magnesium Ferritin Total Bilirubin AST ALT Lactate Dehydrogenase C-Reactive Protein Albumin Triglycerides Arterial Blood Glucose Arterial Blood Ionized Calcium Urine Creatinine Coronavirus (PCR) Crossmatch 01/31/21 01/31/21 01/31/21 04:40 05:17 11:33 WBC RBC Hgb Hct MCV MCH MCHC RDW Plt Count Lymph % (Auto) Lymph # (Auto) Seg Neutrophils % Seg Neuts % (Manual) Lymphocytes % (Manual) Monocytes % (Manual) Nucleated RBC % Seg Neutrophils # Seg Neutrophils # Man Lymphocytes # (Manual) Monocytes # (Manual) Eosinophils # (Manual) INR D-Dimer ABG pH 7.161 L* POC ABG pCO2 POC ABG pO2 ABG pO2 142.2 H ABG HCO3 28.3 H ABG O2 Saturation ABG Base Excess -3.2 L ABG Hemoglobin ABG Oxyhemoglobin ABG Sodium ABG Potassium ABG Chloride ABG Glucose Oxyhemoglobin Carboxyhemoglobin Sodium Potassium Chloride Carbon Dioxide BUN Creatinine Glucose POC Glucose 200 H 167 H Hemoglobin A1c Lactic Acid Calcium Phosphorus Magnesium Ferritin Total Bilirubin AST ALT Lactate Dehydrogenase C-Reactive Protein Albumin Triglycerides Arterial Blood Glucose Arterial Blood Ionized Calcium Urine Creatinine Coronavirus (PCR) Crossmatch 01/31/21 01/31/21 01/31/21 14:00 17:10 23:24 WBC RBC Hgb Hct MCV MCH MCHC RDW Plt Count Lymph % (Auto) Lymph # (Auto) Seg Neutrophils % Seg Neuts % (Manual) Lymphocytes % (Manual) Monocytes % (Manual) Nucleated RBC % Seg Neutrophils # Seg Neutrophils # Man Lymphocytes # (Manual) Monocytes # (Manual) Eosinophils # (Manual) INR D-Dimer ABG pH 7.205 L POC ABG pCO2 POC ABG pO2 ABG pO2 90.9 H ABG HCO3 26.5 H ABG O2 Saturation ABG Base Excess -2.7 L ABG Hemoglobin 12.3 L ABG Oxyhemoglobin ABG Sodium ABG Potassium ABG Chloride ABG Glucose Oxyhemoglobin 93.9 L Carboxyhemoglobin Sodium Potassium Chloride Carbon Dioxide BUN Creatinine Glucose POC Glucose 190 H 203 H Hemoglobin A1c Lactic Acid Calcium Phosphorus Magnesium Ferritin Total Bilirubin AST ALT Lactate Dehydrogenase C-Reactive Protein Albumin Triglycerides Arterial Blood Glucose Arterial Blood Ionized Calcium Urine Creatinine Coronavirus (PCR) Crossmatch 02/01/21 02/01/21 02/01/21 05:15 06:22 10:20 WBC RBC Hgb Hct MCV MCH MCHC RDW Plt Count Lymph % (Auto) Lymph # (Auto) Seg Neutrophils % Seg Neuts % (Manual) Lymphocytes % (Manual) Monocytes % (Manual) Nucleated RBC % Seg Neutrophils # Seg Neutrophils # Man Lymphocytes # (Manual) Monocytes # (Manual) Eosinophils # (Manual) INR D-Dimer ABG pH 6.920 L* 7.116 L* POC ABG pCO2 POC ABG pO2 ABG pO2 102.9 H 113.1 H ABG HCO3 28.2 H ABG O2 Saturation 92.9 L ABG Base Excess -6.9 L -5.8 L ABG Hemoglobin 11.6 L 9.5 L ABG Oxyhemoglobin ABG Sodium ABG Potassium ABG Chloride ABG Glucose Oxyhemoglobin 90.5 L 94.6 L Carboxyhemoglobin Sodium Potassium Chloride Carbon Dioxide BUN Creatinine Glucose POC Glucose 221 H Hemoglobin A1c Lactic Acid Calcium Phosphorus Magnesium Ferritin Total Bilirubin AST ALT Lactate Dehydrogenase C-Reactive Protein Albumin Triglycerides Arterial Blood Glucose Arterial Blood Ionized Calcium Urine Creatinine Coronavirus (PCR) Crossmatch 02/01/21 02/01/21 02/01/21 11:12 12:35 16:00 WBC RBC Hgb Hct MCV MCH MCHC RDW Plt Count Lymph % (Auto) Lymph # (Auto) Seg Neutrophils % Seg Neuts % (Manual) Lymphocytes % (Manual) Monocytes % (Manual) Nucleated RBC % Seg Neutrophils # Seg Neutrophils # Man Lymphocytes # (Manual) Monocytes # (Manual) Eosinophils # (Manual) INR D-Dimer ABG pH 7.155 L* POC ABG pCO2 POC ABG pO2 ABG pO2 94.6 H ABG HCO3 ABG O2 Saturation ABG Base Excess -6.5 L ABG Hemoglobin 13.1 L ABG Oxyhemoglobin ABG Sodium ABG Potassium ABG Chloride ABG Glucose Oxyhemoglobin 93.7 L Carboxyhemoglobin Sodium 155 H Potassium 5.1 H Chloride 120.5 H Carbon Dioxide BUN 90 H Creatinine 6.1 H D Glucose 238 H POC Glucose 207 H Hemoglobin A1c Lactic Acid Calcium 7.4 L Phosphorus Magnesium Ferritin Total Bilirubin AST ALT Lactate Dehydrogenase C-Reactive Protein Albumin Triglycerides Arterial Blood Glucose Arterial Blood Ionized Calcium Urine Creatinine Coronavirus (PCR) Crossmatch 02/01/21 02/01/21 02/02/21 17:10 23:47 04:04 WBC RBC 3.02 L Hgb 9.8 L Hct 30.7 L MCV 102 H MCH MCHC RDW 15.6 H Plt Count Lymph % (Auto) 4.2 L Lymph # (Auto) 0.3 L Seg Neutrophils % Seg Neuts % (Manual) Lymphocytes % (Manual) Monocytes % (Manual) Nucleated RBC % Seg Neutrophils # Seg Neutrophils # Man Lymphocytes # (Manual) Monocytes # (Manual) Eosinophils # (Manual) INR D-Dimer ABG pH POC ABG pCO2 POC ABG pO2 ABG pO2 ABG HCO3 ABG O2 Saturation ABG Base Excess ABG Hemoglobin ABG Oxyhemoglobin ABG Sodium ABG Potassium ABG Chloride ABG Glucose Oxyhemoglobin Carboxyhemoglobin Sodium Potassium Chloride Carbon Dioxide BUN Creatinine Glucose POC Glucose 238 H 235 H Hemoglobin A1c Lactic Acid Calcium Phosphorus Magnesium Ferritin Total Bilirubin AST ALT Lactate Dehydrogenase C-Reactive Protein Albumin Triglycerides Arterial Blood Glucose Arterial Blood Ionized Calcium Urine Creatinine Coronavirus (PCR) Crossmatch 02/02/21 02/02/21 02/02/21 05:18 05:35 11:28 WBC RBC Hgb Hct MCV MCH MCHC RDW Plt Count Lymph % (Auto) Lymph # (Auto) Seg Neutrophils % Seg Neuts % (Manual) Lymphocytes % (Manual) Monocytes % (Manual) Nucleated RBC % Seg Neutrophils # Seg Neutrophils # Man Lymphocytes # (Manual) Monocytes # (Manual) Eosinophils # (Manual) INR D-Dimer ABG pH 7.195 L* POC ABG pCO2 POC ABG pO2 ABG pO2 72.5 L ABG HCO3 ABG O2 Saturation 91.2 L ABG Base Excess -5.3 L ABG Hemoglobin 6.0 L ABG Oxyhemoglobin ABG Sodium ABG Potassium ABG Chloride ABG Glucose Oxyhemoglobin 89.1 L Carboxyhemoglobin Sodium Potassium Chloride 110.4 H Carbon Dioxide BUN 92 H Creatinine Glucose POC Glucose 239 H Hemoglobin A1c Lactic Acid Calcium Phosphorus Magnesium Ferritin Total Bilirubin AST ALT Lactate Dehydrogenase C-Reactive Protein Albumin Triglycerides Arterial Blood Glucose Arterial Blood Ionized Calcium Urine Creatinine Coronavirus (PCR) Crossmatch 02/02/21 02/02/21 02/02/21 11:53 16:00 18:04 WBC RBC Hgb Hct MCV MCH MCHC RDW Plt Count Lymph % (Auto) Lymph # (Auto) Seg Neutrophils % Seg Neuts % (Manual) Lymphocytes % (Manual) Monocytes % (Manual) Nucleated RBC % Seg Neutrophils # Seg Neutrophils # Man Lymphocytes # (Manual) Monocytes # (Manual) Eosinophils # (Manual) INR D-Dimer ABG pH POC ABG pCO2 POC ABG pO2 ABG pO2 ABG HCO3 ABG O2 Saturation ABG Base Excess ABG Hemoglobin ABG Oxyhemoglobin ABG Sodium ABG Potassium ABG Chloride ABG Glucose Oxyhemoglobin Carboxyhemoglobin Sodium Potassium Chloride Carbon Dioxide BUN Creatinine Glucose POC Glucose 248 H 199 H Hemoglobin A1c 6.3 H Lactic Acid Calcium Phosphorus Magnesium Ferritin Total Bilirubin AST ALT Lactate Dehydrogenase C-Reactive Protein Albumin Triglycerides Arterial Blood Glucose Arterial Blood Ionized Calcium Urine Creatinine Coronavirus (PCR) Crossmatch 02/02/21 02/03/21 02/03/21 23:31 03:12 04:10 WBC RBC 3.06 L Hgb 9.7 L Hct 30.4 L MCV 99 H MCH MCHC RDW 15.3 H Plt Count Lymph % (Auto) 6.1 L Lymph # (Auto) 0.5 L Seg Neutrophils % 86.1 H Seg Neuts % (Manual) Lymphocytes % (Manual) Monocytes % (Manual) Nucleated RBC % Seg Neutrophils # Seg Neutrophils # Man Lymphocytes # (Manual) Monocytes # (Manual) Eosinophils # (Manual) INR D-Dimer ABG pH 7.199 L POC ABG pCO2 48.3 H POC ABG pO2 68.3 L ABG pO2 ABG HCO3 ABG O2 Saturation ABG Base Excess ABG Hemoglobin 10.2 L ABG Oxyhemoglobin 89.2 L ABG Sodium 155.0 H ABG Potassium 4.6 H ABG Chloride 121.0 H ABG Glucose 166 H Oxyhemoglobin Carboxyhemoglobin 0.3 L Sodium Potassium Chloride Carbon Dioxide BUN Creatinine Glucose POC Glucose 200 H Hemoglobin A1c Lactic Acid Calcium Phosphorus Magnesium Ferritin Total Bilirubin AST ALT Lactate Dehydrogenase C-Reactive Protein Albumin Triglycerides Arterial Blood Glucose 166 H Arterial Blood Ionized Calcium 4.1 L Urine Creatinine Coronavirus (PCR) Crossmatch 02/03/21 02/03/21 02/03/21 04:10 05:34 11:51 WBC RBC Hgb Hct MCV MCH MCHC RDW Plt Count Lymph % (Auto) Lymph # (Auto) Seg Neutrophils % Seg Neuts % (Manual) Lymphocytes % (Manual) Monocytes % (Manual) Nucleated RBC % Seg Neutrophils # Seg Neutrophils # Man Lymphocytes # (Manual) Monocytes # (Manual) Eosinophils # (Manual) INR D-Dimer ABG pH POC ABG pCO2 POC ABG pO2 ABG pO2 ABG HCO3 ABG O2 Saturation ABG Base Excess ABG Hemoglobin ABG Oxyhemoglobin ABG Sodium ABG Potassium ABG Chloride ABG Glucose Oxyhemoglobin Carboxyhemoglobin Sodium 154 H D Potassium Chloride 116.7 H Carbon Dioxide 20 L BUN 130 H Creatinine 9.2 H D Glucose 160 H POC Glucose 130 H 154 H Hemoglobin A1c Lactic Acid Calcium 6.7 L Phosphorus 8.60 H Magnesium Ferritin Total Bilirubin AST ALT Lactate Dehydrogenase C-Reactive Protein Albumin Triglycerides Arterial Blood Glucose Arterial Blood Ionized Calcium Urine Creatinine Coronavirus (PCR) Crossmatch 02/03/21 02/03/21 02/04/21 16:49 23:22 03:48 WBC RBC Hgb Hct MCV MCH MCHC RDW Plt Count Lymph % (Auto) Lymph # (Auto) Seg Neutrophils % Seg Neuts % (Manual) Lymphocytes % (Manual) Monocytes % (Manual) Nucleated RBC % Seg Neutrophils # Seg Neutrophils # Man Lymphocytes # (Manual) Monocytes # (Manual) Eosinophils # (Manual) INR D-Dimer ABG pH 7.201 L POC ABG pCO2 54.5 H POC ABG pO2 74.0 L ABG pO2 ABG HCO3 ABG O2 Saturation ABG Base Excess ABG Hemoglobin 9.7 L ABG Oxyhemoglobin 91.1 L ABG Sodium 146.2 H ABG Potassium ABG Chloride 114.0 H ABG Glucose 155 H Oxyhemoglobin Carboxyhemoglobin Sodium Potassium Chloride Carbon Dioxide BUN Creatinine Glucose POC Glucose 164 H 152 H Hemoglobin A1c Lactic Acid Calcium Phosphorus Magnesium Ferritin Total Bilirubin AST ALT Lactate Dehydrogenase C-Reactive Protein Albumin Triglycerides Arterial Blood Glucose 155 H Arterial Blood Ionized Calcium 3.9 L Urine Creatinine Coronavirus (PCR) Crossmatch 02/04/21 02/04/21 02/04/21 04:45 04:45 04:45 WBC RBC 2.75 L Hgb 9.1 L Hct 26.9 L MCV 98 H MCH 33 H MCHC RDW Plt Count Lymph % (Auto) 6.8 L Lymph # (Auto) 0.5 L Seg Neutrophils % 87.2 H Seg Neuts % (Manual) Lymphocytes % (Manual) Monocytes % (Manual) Nucleated RBC % Seg Neutrophils # Seg Neutrophils # Man Lymphocytes # (Manual) Monocytes # (Manual) Eosinophils # (Manual) INR D-Dimer ABG pH POC ABG pCO2 POC ABG pO2 ABG pO2 ABG HCO3 ABG O2 Saturation ABG Base Excess ABG Hemoglobin ABG Oxyhemoglobin ABG Sodium ABG Potassium ABG Chloride ABG Glucose Oxyhemoglobin Carboxyhemoglobin Sodium 149 H Potassium Chloride 111.5 H Carbon Dioxide BUN 99 H Creatinine 8.5 H Glucose 139 H POC Glucose Hemoglobin A1c Lactic Acid Calcium 6.8 L Phosphorus 8.40 H Magnesium Ferritin Total Bilirubin AST ALT Lactate Dehydrogenase C-Reactive Protein Albumin Triglycerides Arterial Blood Glucose Arterial Blood Ionized Calcium Urine Creatinine Coronavirus (PCR) Crossmatch 02/04/21 02/04/21 02/04/21 06:05 11:44 18:00 WBC RBC Hgb Hct MCV MCH MCHC RDW Plt Count Lymph % (Auto) Lymph # (Auto) Seg Neutrophils % Seg Neuts % (Manual) Lymphocytes % (Manual) Monocytes % (Manual) Nucleated RBC % Seg Neutrophils # Seg Neutrophils # Man Lymphocytes # (Manual) Monocytes # (Manual) Eosinophils # (Manual) INR D-Dimer ABG pH POC ABG pCO2 POC ABG pO2 ABG pO2 ABG HCO3 ABG O2 Saturation ABG Base Excess ABG Hemoglobin ABG Oxyhemoglobin ABG Sodium ABG Potassium ABG Chloride ABG Glucose Oxyhemoglobin Carboxyhemoglobin Sodium Potassium Chloride Carbon Dioxide BUN Creatinine Glucose POC Glucose 138 H 129 H 163 H Hemoglobin A1c Lactic Acid Calcium Phosphorus Magnesium Ferritin Total Bilirubin AST ALT Lactate Dehydrogenase C-Reactive Protein Albumin Triglycerides Arterial Blood Glucose Arterial Blood Ionized Calcium Urine Creatinine Coronavirus (PCR) Crossmatch 02/04/21 02/05/21 02/05/21 23:48 01:50 01:50 WBC RBC 2.43 L Hgb 8.3 L Hct 23.6 L MCV 97 H MCH 34 H MCHC 35 H RDW Plt Count 137 L Lymph % (Auto) 8.4 L Lymph # (Auto) 0.6 L Seg Neutrophils % 86.1 H Seg Neuts % (Manual) Lymphocytes % (Manual) Monocytes % (Manual) Nucleated RBC % Seg Neutrophils # Seg Neutrophils # Man Lymphocytes # (Manual) Monocytes # (Manual) Eosinophils # (Manual) INR D-Dimer ABG pH POC ABG pCO2 POC ABG pO2 ABG pO2 ABG HCO3 ABG O2 Saturation ABG Base Excess ABG Hemoglobin ABG Oxyhemoglobin ABG Sodium ABG Potassium ABG Chloride ABG Glucose Oxyhemoglobin Carboxyhemoglobin Sodium Potassium Chloride Carbon Dioxide BUN Creatinine Glucose POC Glucose 157 H Hemoglobin A1c Lactic Acid Calcium Phosphorus 5.60 H D Magnesium Ferritin Total Bilirubin AST ALT Lactate Dehydrogenase C-Reactive Protein Albumin Triglycerides Arterial Blood Glucose Arterial Blood Ionized Calcium Urine Creatinine Coronavirus (PCR) Crossmatch 02/05/21 02/05/21 02/05/21 03:44 05:27 09:15 WBC RBC Hgb Hct MCV MCH MCHC RDW Plt Count Lymph % (Auto) Lymph # (Auto) Seg Neutrophils % Seg Neuts % (Manual) Lymphocytes % (Manual) Monocytes % (Manual) Nucleated RBC % Seg Neutrophils # Seg Neutrophils # Man Lymphocytes # (Manual) Monocytes # (Manual) Eosinophils # (Manual) INR D-Dimer ABG pH 7.202 L POC ABG pCO2 63.7 H POC ABG pO2 69.0 L ABG pO2 ABG HCO3 ABG O2 Saturation ABG Base Excess ABG Hemoglobin 9.4 L ABG Oxyhemoglobin ABG Sodium ABG Potassium ABG Chloride 108.0 H ABG Glucose 186 H Oxyhemoglobin Carboxyhemoglobin Sodium Potassium Chloride Carbon Dioxide BUN 78 H Creatinine 8.0 H Glucose 163 H POC Glucose 157 H Hemoglobin A1c Lactic Acid Calcium 6.3 L Phosphorus Magnesium Ferritin Total Bilirubin AST ALT Lactate Dehydrogenase C-Reactive Protein Albumin Triglycerides Arterial Blood Glucose 186 H Arterial Blood Ionized Calcium 3.9 L Urine Creatinine Coronavirus (PCR) Crossmatch 02/05/21 02/05/21 02/05/21 11:47 17:39 23:40 WBC RBC Hgb Hct MCV MCH MCHC RDW Plt Count Lymph % (Auto) Lymph # (Auto) Seg Neutrophils % Seg Neuts % (Manual) Lymphocytes % (Manual) Monocytes % (Manual) Nucleated RBC % Seg Neutrophils # Seg Neutrophils # Man Lymphocytes # (Manual) Monocytes # (Manual) Eosinophils # (Manual) INR D-Dimer ABG pH 7.273 L POC ABG pCO2 62.1 H POC ABG pO2 72.0 L ABG pO2 ABG HCO3 ABG O2 Saturation ABG Base Excess ABG Hemoglobin 9.1 L ABG Oxyhemoglobin 91.3 L ABG Sodium ABG Potassium 3.1 L ABG Chloride ABG Glucose 125 H Oxyhemoglobin Carboxyhemoglobin Sodium Potassium Chloride Carbon Dioxide BUN Creatinine Glucose POC Glucose 126 H 126 H Hemoglobin A1c Lactic Acid Calcium Phosphorus Magnesium Ferritin Total Bilirubin AST ALT Lactate Dehydrogenase C-Reactive Protein Albumin Triglycerides Arterial Blood Glucose 125 H Arterial Blood Ionized Calcium 4.0 L Urine Creatinine Coronavirus (PCR) Crossmatch 02/06/21 02/06/21 02/06/21 04:30 04:57 09:45 WBC RBC Hgb Hct MCV MCH MCHC RDW Plt Count Lymph % (Auto) Lymph # (Auto) Seg Neutrophils % Seg Neuts % (Manual) Lymphocytes % (Manual) Monocytes % (Manual) Nucleated RBC % Seg Neutrophils # Seg Neutrophils # Man Lymphocytes # (Manual) Monocytes # (Manual) Eosinophils # (Manual) INR D-Dimer ABG pH 7.159 L 7.138 L* POC ABG pCO2 76.3 H POC ABG pO2 66.9 L ABG pO2 ABG HCO3 ABG O2 Saturation 93.4 L ABG Base Excess -6.0 L ABG Hemoglobin 11.2 L 11.7 L ABG Oxyhemoglobin 88.2 L ABG Sodium ABG Potassium ABG Chloride ABG Glucose 134 H Oxyhemoglobin 91.2 L Carboxyhemoglobin Sodium Potassium Chloride Carbon Dioxide BUN Creatinine Glucose POC Glucose 124 H Hemoglobin A1c Lactic Acid Calcium Phosphorus Magnesium Ferritin Total Bilirubin AST ALT Lactate Dehydrogenase C-Reactive Protein Albumin Triglycerides Arterial Blood Glucose 134 H Arterial Blood Ionized Calcium 3.9 L Urine Creatinine Coronavirus (PCR) Crossmatch 02/06/21 02/06/21 02/06/21 11:11 17:00 17:00 WBC RBC Hgb Hct MCV MCH MCHC RDW Plt Count Lymph % (Auto) Lymph # (Auto) Seg Neutrophils % Seg Neuts % (Manual) Lymphocytes % (Manual) Monocytes % (Manual) Nucleated RBC % Seg Neutrophils # Seg Neutrophils # Man Lymphocytes # (Manual) Monocytes # (Manual) Eosinophils # (Manual) INR D-Dimer ABG pH 7.158 L* POC ABG pCO2 POC ABG pO2 ABG pO2 109.8 H ABG HCO3 28.7 H ABG O2 Saturation ABG Base Excess -2.5 L ABG Hemoglobin ABG Oxyhemoglobin ABG Sodium ABG Potassium ABG Chloride ABG Glucose Oxyhemoglobin 94.5 L Carboxyhemoglobin Sodium Potassium Chloride Carbon Dioxide BUN Creatinine Glucose POC Glucose 120 H Hemoglobin A1c Lactic Acid Calcium Phosphorus Magnesium Ferritin Total Bilirubin AST ALT Lactate Dehydrogenase C-Reactive Protein Albumin Triglycerides 503 H Arterial Blood Glucose Arterial Blood Ionized Calcium Urine Creatinine Coronavirus (PCR) Crossmatch 02/06/21 02/06/21 02/06/21 17:28 20:16 Unknown WBC 13.5 H RBC 2.98 L Hgb 9.3 L Hct 28.6 L MCV 96 H MCH MCHC RDW Plt Count Lymph % (Auto) Lymph # (Auto) Seg Neutrophils % Seg Neuts % (Manual) 87.0 H Lymphocytes % (Manual) 7.0 L Monocytes % (Manual) Nucleated RBC % Seg Neutrophils # Seg Neutrophils # Man 11.7 H Lymphocytes # (Manual) 0.9 L Monocytes # (Manual) Eosinophils # (Manual) 0.5 H INR D-Dimer ABG pH POC ABG pCO2 POC ABG pO2 ABG pO2 ABG HCO3 ABG O2 Saturation ABG Base Excess ABG Hemoglobin ABG Oxyhemoglobin ABG Sodium ABG Potassium ABG Chloride ABG Glucose Oxyhemoglobin Carboxyhemoglobin Sodium Potassium Chloride Carbon Dioxide BUN Creatinine Glucose POC Glucose 147 H 164 H Hemoglobin A1c Lactic Acid Calcium Phosphorus Magnesium Ferritin Total Bilirubin AST ALT Lactate Dehydrogenase C-Reactive Protein Albumin Triglycerides Arterial Blood Glucose Arterial Blood Ionized Calcium Urine Creatinine Coronavirus (PCR) Crossmatch 02/06/21 02/07/21 02/07/21 Unknown 01:21 04:00 WBC 12.0 H RBC 2.61 L Hgb 8.2 L Hct 24.5 L MCV MCH MCHC RDW Plt Count Lymph % (Auto) 8.9 L Lymph # (Auto) 1.1 L Seg Neutrophils % 86.3 H Seg Neuts % (Manual) Lymphocytes % (Manual) Monocytes % (Manual) Nucleated RBC % Seg Neutrophils # 10.3 H Seg Neutrophils # Man Lymphocytes # (Manual) Monocytes # (Manual) Eosinophils # (Manual) INR D-Dimer ABG pH POC ABG pCO2 POC ABG pO2 ABG pO2 ABG HCO3 ABG O2 Saturation ABG Base Excess ABG Hemoglobin ABG Oxyhemoglobin ABG Sodium ABG Potassium ABG Chloride ABG Glucose Oxyhemoglobin Carboxyhemoglobin Sodium Potassium 3.5 L Chloride Carbon Dioxide BUN 58 H Creatinine 6.6 H Glucose 107 H POC Glucose 173 H Hemoglobin A1c Lactic Acid Calcium 6.7 L Phosphorus 8.00 H D Magnesium Ferritin Total Bilirubin AST ALT Lactate Dehydrogenase C-Reactive Protein Albumin Triglycerides Arterial Blood Glucose Arterial Blood Ionized Calcium Urine Creatinine Coronavirus (PCR) Crossmatch 02/07/21 02/07/21 02/07/21 04:00 04:45 11:49 WBC RBC Hgb Hct MCV MCH MCHC RDW Plt Count Lymph % (Auto) Lymph # (Auto) Seg Neutrophils % Seg Neuts % (Manual) Lymphocytes % (Manual) Monocytes % (Manual) Nucleated RBC % Seg Neutrophils # Seg Neutrophils # Man Lymphocytes # (Manual) Monocytes # (Manual) Eosinophils # (Manual) INR D-Dimer ABG pH 7.287 L POC ABG pCO2 64.8 H POC ABG pO2 74.0 L ABG pO2 ABG HCO3 ABG O2 Saturation ABG Base Excess ABG Hemoglobin 9.1 L ABG Oxyhemoglobin 92.0 L ABG Sodium ABG Potassium 2.8 L ABG Chloride ABG Glucose 226 H Oxyhemoglobin Carboxyhemoglobin Sodium Potassium Chloride Carbon Dioxide BUN Creatinine Glucose POC Glucose 170 H Hemoglobin A1c Lactic Acid Calcium Phosphorus 5.50 H D Magnesium Ferritin Total Bilirubin AST ALT Lactate Dehydrogenase C-Reactive Protein Albumin Triglycerides Arterial Blood Glucose 226 H Arterial Blood Ionized Calcium 3.7 L Urine Creatinine Coronavirus (PCR) Crossmatch 02/07/21 02/07/21 02/07/21 13:48 17:45 23:02 WBC RBC Hgb Hct MCV MCH MCHC RDW Plt Count Lymph % (Auto) Lymph # (Auto) Seg Neutrophils % Seg Neuts % (Manual) Lymphocytes % (Manual) Monocytes % (Manual) Nucleated RBC % Seg Neutrophils # Seg Neutrophils # Man Lymphocytes # (Manual) Monocytes # (Manual) Eosinophils # (Manual) INR D-Dimer ABG pH POC ABG pCO2 POC ABG pO2 ABG pO2 ABG HCO3 ABG O2 Saturation ABG Base Excess ABG Hemoglobin ABG Oxyhemoglobin ABG Sodium ABG Potassium ABG Chloride ABG Glucose Oxyhemoglobin Carboxyhemoglobin Sodium 136 L Potassium 2.6 L* D Chloride 95.1 L Carbon Dioxide 33 H D BUN 30 H Creatinine 3.6 H Glucose 184 H POC Glucose 172 H 172 H Hemoglobin A1c Lactic Acid Calcium 6.9 L Phosphorus Magnesium Ferritin Total Bilirubin AST ALT Lactate Dehydrogenase C-Reactive Protein Albumin Triglycerides Arterial Blood Glucose Arterial Blood Ionized Calcium Urine Creatinine Coronavirus (PCR) Crossmatch 02/08/21 02/08/21 02/08/21 05:22 06:00 06:00 WBC RBC 2.21 L Hgb 7.2 L Hct 21.0 L MCV 95 H MCH MCHC RDW Plt Count Lymph % (Auto) Lymph # (Auto) Seg Neutrophils % Seg Neuts % (Manual) 87.0 H Lymphocytes % (Manual) 4.0 L Monocytes % (Manual) Nucleated RBC % Seg Neutrophils # Seg Neutrophils # Man 8.5 H Lymphocytes # (Manual) 0.4 L Monocytes # (Manual) Eosinophils # (Manual) INR D-Dimer ABG pH POC ABG pCO2 POC ABG pO2 ABG pO2 ABG HCO3 ABG O2 Saturation ABG Base Excess ABG Hemoglobin ABG Oxyhemoglobin ABG Sodium ABG Potassium ABG Chloride ABG Glucose Oxyhemoglobin Carboxyhemoglobin Sodium 136 L Potassium 2.4 L* Chloride 93.1 L Carbon Dioxide 36 H BUN 43 H Creatinine 5.4 H Glucose 167 H POC Glucose 162 H Hemoglobin A1c Lactic Acid Calcium 6.3 L Phosphorus Magnesium Ferritin Total Bilirubin AST ALT Lactate Dehydrogenase C-Reactive Protein Albumin Triglycerides Arterial Blood Glucose Arterial Blood Ionized Calcium Urine Creatinine Coronavirus (PCR) Crossmatch 02/08/21 02/08/21 02/08/21 11:44 17:53 18:56 WBC RBC Hgb Hct MCV MCH MCHC RDW Plt Count Lymph % (Auto) Lymph # (Auto) Seg Neutrophils % Seg Neuts % (Manual) Lymphocytes % (Manual) Monocytes % (Manual) Nucleated RBC % Seg Neutrophils # Seg Neutrophils # Man Lymphocytes # (Manual) Monocytes # (Manual) Eosinophils # (Manual) INR D-Dimer ABG pH POC ABG pCO2 POC ABG pO2 ABG pO2 ABG HCO3 ABG O2 Saturation ABG Base Excess ABG Hemoglobin ABG Oxyhemoglobin ABG Sodium ABG Potassium ABG Chloride ABG Glucose Oxyhemoglobin Carboxyhemoglobin Sodium Potassium 2.9 L* D Chloride Carbon Dioxide BUN Creatinine Glucose POC Glucose 164 H 154 H Hemoglobin A1c Lactic Acid Calcium Phosphorus Magnesium Ferritin Total Bilirubin AST ALT Lactate Dehydrogenase C-Reactive Protein Albumin Triglycerides Arterial Blood Glucose Arterial Blood Ionized Calcium Urine Creatinine Coronavirus (PCR) Crossmatch 02/08/21 02/08/21 02/09/21 23:24 23:58 03:21 WBC RBC Hgb Hct MCV MCH MCHC RDW Plt Count Lymph % (Auto) Lymph # (Auto) Seg Neutrophils % Seg Neuts % (Manual) Lymphocytes % (Manual) Monocytes % (Manual) Nucleated RBC % Seg Neutrophils # Seg Neutrophils # Man Lymphocytes # (Manual) Monocytes # (Manual) Eosinophils # (Manual) INR D-Dimer ABG pH 7.319 L POC ABG pCO2 63.3 H 68.3 H POC ABG pO2 71.2 L 76.5 L ABG pO2 ABG HCO3 ABG O2 Saturation ABG Base Excess ABG Hemoglobin 8.2 L 7.0 L ABG Oxyhemoglobin 91.8 L 92.2 L ABG Sodium 134.6 L 133.0 L ABG Potassium 2.3 L 3.1 L ABG Chloride 96.0 L 95.0 L ABG Glucose 184 H 154 H Oxyhemoglobin Carboxyhemoglobin Sodium Potassium Chloride Carbon Dioxide BUN Creatinine Glucose POC Glucose 152 H Hemoglobin A1c Lactic Acid Calcium Phosphorus Magnesium Ferritin Total Bilirubin AST ALT Lactate Dehydrogenase C-Reactive Protein Albumin Triglycerides Arterial Blood Glucose 184 H 154 H Arterial Blood Ionized Calcium 3.6 L 3.5 L Urine Creatinine Coronavirus (PCR) Crossmatch 02/09/21 02/09/21 02/09/21 05:10 05:10 06:04 WBC RBC 2.14 L Hgb 7.0 L Hct 20.5 L MCV 96 H MCH 33 H MCHC RDW Plt Count Lymph % (Auto) Lymph # (Auto) Seg Neutrophils % Seg Neuts % (Manual) 82.0 H Lymphocytes % (Manual) 9.0 L Monocytes % (Manual) Nucleated RBC % 1.0 H Seg Neutrophils # Seg Neutrophils # Man 8.9 H Lymphocytes # (Manual) 1.0 L Monocytes # (Manual) Eosinophils # (Manual) INR D-Dimer ABG pH POC ABG pCO2 POC ABG pO2 ABG pO2 ABG HCO3 ABG O2 Saturation ABG Base Excess ABG Hemoglobin ABG Oxyhemoglobin ABG Sodium ABG Potassium ABG Chloride ABG Glucose Oxyhemoglobin Carboxyhemoglobin Sodium 135 L Potassium 3.2 L Chloride 91.0 L Carbon Dioxide 32 H BUN 54 H Creatinine 6.6 H Glucose 163 H POC Glucose 149 H Hemoglobin A1c Lactic Acid Calcium 6.2 L Phosphorus Magnesium Ferritin Total Bilirubin AST ALT Lactate Dehydrogenase C-Reactive Protein Albumin Triglycerides Arterial Blood Glucose Arterial Blood Ionized Calcium Urine Creatinine Coronavirus (PCR) Crossmatch 02/09/21 02/09/21 02/09/21 12:02 13:32 13:40 WBC RBC Hgb Hct MCV MCH MCHC RDW Plt Count Lymph % (Auto) Lymph # (Auto) Seg Neutrophils % Seg Neuts % (Manual) Lymphocytes % (Manual) Monocytes % (Manual) Nucleated RBC % Seg Neutrophils # Seg Neutrophils # Man Lymphocytes # (Manual) Monocytes # (Manual) Eosinophils # (Manual) INR D-Dimer ABG pH POC ABG pCO2 POC ABG pO2 ABG pO2 ABG HCO3 ABG O2 Saturation ABG Base Excess ABG Hemoglobin ABG Oxyhemoglobin ABG Sodium ABG Potassium ABG Chloride ABG Glucose Oxyhemoglobin Carboxyhemoglobin Sodium Potassium Chloride Carbon Dioxide BUN Creatinine Glucose POC Glucose 147 H Hemoglobin A1c Lactic Acid Calcium Phosphorus Magnesium Ferritin Total Bilirubin AST ALT Lactate Dehydrogenase C-Reactive Protein Albumin Triglycerides 250 H Arterial Blood Glucose Arterial Blood Ionized Calcium Urine Creatinine Coronavirus (PCR) Crossmatch See Detail 02/09/21 02/09/21 02/10/21 18:06 23:42 04:00 WBC RBC Hgb Hct MCV MCH MCHC RDW Plt Count Lymph % (Auto) Lymph # (Auto) Seg Neutrophils % Seg Neuts % (Manual) Lymphocytes % (Manual) Monocytes % (Manual) Nucleated RBC % Seg Neutrophils # Seg Neutrophils # Man Lymphocytes # (Manual) Monocytes # (Manual) Eosinophils # (Manual) INR D-Dimer ABG pH POC ABG pCO2 65.8 H POC ABG pO2 68.0 L ABG pO2 ABG HCO3 ABG O2 Saturation ABG Base Excess ABG Hemoglobin 8.3 L ABG Oxyhemoglobin ABG Sodium 132.4 L ABG Potassium 2.9 L ABG Chloride 92.0 L ABG Glucose 174 H Oxyhemoglobin Carboxyhemoglobin Sodium Potassium Chloride Carbon Dioxide BUN Creatinine Glucose POC Glucose 152 H 147 H Hemoglobin A1c Lactic Acid Calcium Phosphorus Magnesium Ferritin Total Bilirubin AST ALT Lactate Dehydrogenase C-Reactive Protein Albumin Triglycerides Arterial Blood Glucose 174 H Arterial Blood Ionized Calcium 3.4 L Urine Creatinine Coronavirus (PCR) Crossmatch 02/10/21 02/10/21 02/10/21 05:32 11:29 14:08 WBC 12.5 H RBC 2.14 L Hgb 6.6 L Hct 20.2 L MCV MCH MCHC RDW Plt Count Lymph % (Auto) Lymph # (Auto) Seg Neutrophils % Seg Neuts % (Manual) Lymphocytes % (Manual) Monocytes % (Manual) Nucleated RBC % Seg Neutrophils # Seg Neutrophils # Man Lymphocytes # (Manual) Monocytes # (Manual) Eosinophils # (Manual) INR D-Dimer ABG pH POC ABG pCO2 POC ABG pO2 ABG pO2 ABG HCO3 ABG O2 Saturation ABG Base Excess ABG Hemoglobin ABG Oxyhemoglobin ABG Sodium ABG Potassium ABG Chloride ABG Glucose Oxyhemoglobin Carboxyhemoglobin Sodium Potassium Chloride Carbon Dioxide BUN Creatinine Glucose POC Glucose 167 H 147 H Hemoglobin A1c Lactic Acid Calcium Phosphorus Magnesium Ferritin Total Bilirubin AST ALT Lactate Dehydrogenase C-Reactive Protein Albumin Triglycerides Arterial Blood Glucose Arterial Blood Ionized Calcium Urine Creatinine Coronavirus (PCR) Crossmatch 02/10/21 02/10/21 02/10/21 14:08 18:11 22:32 WBC RBC Hgb 6.4 L Hct 19.1 L* MCV MCH MCHC RDW Plt Count Lymph % (Auto) Lymph # (Auto) Seg Neutrophils % Seg Neuts % (Manual) Lymphocytes % (Manual) Monocytes % (Manual) Nucleated RBC % Seg Neutrophils # Seg Neutrophils # Man Lymphocytes # (Manual) Monocytes # (Manual) Eosinophils # (Manual) INR D-Dimer ABG pH POC ABG pCO2 POC ABG pO2 ABG pO2 ABG HCO3 ABG O2 Saturation ABG Base Excess ABG Hemoglobin ABG Oxyhemoglobin ABG Sodium ABG Potassium ABG Chloride ABG Glucose Oxyhemoglobin Carboxyhemoglobin Sodium 136 L Potassium 2.9 L* Chloride 90.2 L Carbon Dioxide 33 H BUN 42 H Creatinine 7.5 H Glucose 155 H POC Glucose 173 H Hemoglobin A1c Lactic Acid Calcium 6.1 L Phosphorus Magnesium Ferritin Total Bilirubin AST ALT Lactate Dehydrogenase C-Reactive Protein Albumin Triglycerides Arterial Blood Glucose Arterial Blood Ionized Calcium Urine Creatinine Coronavirus (PCR) Crossmatch 02/11/21 02/11/21 02/11/21 00:28 04:05 04:30 WBC RBC Hgb Hct MCV MCH MCHC RDW Plt Count Lymph % (Auto) Lymph # (Auto) Seg Neutrophils % Seg Neuts % (Manual) Lymphocytes % (Manual) Monocytes % (Manual) Nucleated RBC % Seg Neutrophils # Seg Neutrophils # Man Lymphocytes # (Manual) Monocytes # (Manual) Eosinophils # (Manual) INR D-Dimer ABG pH 7.307 L POC ABG pCO2 72.2 H POC ABG pO2 72.3 L ABG pO2 ABG HCO3 ABG O2 Saturation ABG Base Excess ABG Hemoglobin 8.2 L ABG Oxyhemoglobin ABG Sodium 132.3 L ABG Potassium 3.2 L ABG Chloride 91.0 L ABG Glucose 197 H Oxyhemoglobin Carboxyhemoglobin Sodium 135 L Potassium 3.3 L Chloride 87.1 L Carbon Dioxide 36 H BUN 71 H Creatinine 7.9 H Glucose 263 H POC Glucose 192 H Hemoglobin A1c Lactic Acid Calcium 6.2 L Phosphorus Magnesium Ferritin Total Bilirubin AST ALT Lactate Dehydrogenase C-Reactive Protein Albumin Triglycerides Arterial Blood Glucose 197 H Arterial Blood Ionized Calcium 3.3 L Urine Creatinine Coronavirus (PCR) Crossmatch 02/11/21 02/11/21 02/11/21 04:30 05:47 08:27 WBC RBC 2.22 L Hgb 7.2 L Hct 21.0 L MCV MCH MCHC RDW Plt Count Lymph % (Auto) 8.7 L Lymph # (Auto) 0.9 L Seg Neutrophils % 85.5 H Seg Neuts % (Manual) Lymphocytes % (Manual) Monocytes % (Manual) Nucleated RBC % Seg Neutrophils # 9.2 H Seg Neutrophils # Man Lymphocytes # (Manual) Monocytes # (Manual) Eosinophils # (Manual) INR 1.17 H D-Dimer 1930.92 H ABG pH POC ABG pCO2 POC ABG pO2 ABG pO2 ABG HCO3 ABG O2 Saturation ABG Base Excess ABG Hemoglobin ABG Oxyhemoglobin ABG Sodium ABG Potassium ABG Chloride ABG Glucose Oxyhemoglobin Carboxyhemoglobin Sodium Potassium Chloride Carbon Dioxide BUN Creatinine Glucose POC Glucose 189 H Hemoglobin A1c Lactic Acid Calcium Phosphorus Magnesium Ferritin Total Bilirubin AST ALT Lactate Dehydrogenase C-Reactive Protein Albumin Triglycerides Arterial Blood Glucose Arterial Blood Ionized Calcium Urine Creatinine Coronavirus (PCR) Crossmatch 02/11/21 02/11/21 02/11/21 09:00 09:00 13:18 WBC RBC Hgb Hct MCV MCH MCHC RDW Plt Count Lymph % (Auto) Lymph # (Auto) Seg Neutrophils % Seg Neuts % (Manual) Lymphocytes % (Manual) Monocytes % (Manual) Nucleated RBC % Seg Neutrophils # Seg Neutrophils # Man Lymphocytes # (Manual) Monocytes # (Manual) Eosinophils # (Manual) INR D-Dimer ABG pH POC ABG pCO2 POC ABG pO2 ABG pO2 ABG HCO3 ABG O2 Saturation ABG Base Excess ABG Hemoglobin ABG Oxyhemoglobin ABG Sodium ABG Potassium ABG Chloride ABG Glucose Oxyhemoglobin Carboxyhemoglobin Sodium Potassium Chloride Carbon Dioxide BUN Creatinine Glucose 126 H POC Glucose 160 H Hemoglobin A1c Lactic Acid Calcium Phosphorus Magnesium Ferritin 1253.0 H Total Bilirubin AST ALT Lactate Dehydrogenase 649 H C-Reactive Protein 12.60 H Albumin Triglycerides Arterial Blood Glucose Arterial Blood Ionized Calcium Urine Creatinine Coronavirus (PCR) Crossmatch 02/11/21 02/11/21 02/11/21 14:30 16:59 22:34 WBC RBC Hgb 7.1 L 6.7 L Hct 20.5 L 19.9 L* MCV MCH MCHC RDW Plt Count Lymph % (Auto) Lymph # (Auto) Seg Neutrophils % Seg Neuts % (Manual) Lymphocytes % (Manual) Monocytes % (Manual) Nucleated RBC % Seg Neutrophils # Seg Neutrophils # Man Lymphocytes # (Manual) Monocytes # (Manual) Eosinophils # (Manual) INR D-Dimer ABG pH POC ABG pCO2 POC ABG pO2 ABG pO2 ABG HCO3 ABG O2 Saturation ABG Base Excess ABG Hemoglobin ABG Oxyhemoglobin ABG Sodium ABG Potassium ABG Chloride ABG Glucose Oxyhemoglobin Carboxyhemoglobin Sodium Potassium Chloride Carbon Dioxide BUN Creatinine Glucose POC Glucose 151 H Hemoglobin A1c Lactic Acid Calcium Phosphorus Magnesium Ferritin Total Bilirubin AST ALT Lactate Dehydrogenase C-Reactive Protein Albumin Triglycerides Arterial Blood Glucose Arterial Blood Ionized Calcium Urine Creatinine Coronavirus (PCR) Crossmatch 02/11/21 02/12/21 02/12/21 23:42 04:41 05:19 WBC RBC Hgb Hct MCV MCH MCHC RDW Plt Count Lymph % (Auto) Lymph # (Auto) Seg Neutrophils % Seg Neuts % (Manual) Lymphocytes % (Manual) Monocytes % (Manual) Nucleated RBC % Seg Neutrophils # Seg Neutrophils # Man Lymphocytes # (Manual) Monocytes # (Manual) Eosinophils # (Manual) INR D-Dimer ABG pH POC ABG pCO2 POC ABG pO2 ABG pO2 69.0 L ABG HCO3 32.5 H ABG O2 Saturation ABG Base Excess 7.7 H ABG Hemoglobin 5.1 L ABG Oxyhemoglobin ABG Sodium ABG Potassium ABG Chloride ABG Glucose Oxyhemoglobin 94.7 L Carboxyhemoglobin Sodium Potassium Chloride Carbon Dioxide BUN Creatinine Glucose POC Glucose 165 H 153 H Hemoglobin A1c Lactic Acid Calcium Phosphorus Magnesium Ferritin Total Bilirubin AST ALT Lactate Dehydrogenase C-Reactive Protein Albumin Triglycerides Arterial Blood Glucose Arterial Blood Ionized Calcium Urine Creatinine Coronavirus (PCR) Crossmatch 02/12/21 02/12/21 02/12/21 06:35 06:35 08:40 WBC RBC 2.21 L Hgb 7.2 L Hct 20.7 L MCV MCH 33 H MCHC 35 H RDW Plt Count Lymph % (Auto) Lymph # (Auto) Seg Neutrophils % Seg Neuts % (Manual) Lymphocytes % (Manual) Monocytes % (Manual) Nucleated RBC % Seg Neutrophils # Seg Neutrophils # Man Lymphocytes # (Manual) Monocytes # (Manual) Eosinophils # (Manual) INR D-Dimer ABG pH POC ABG pCO2 POC ABG pO2 ABG pO2 ABG HCO3 ABG O2 Saturation ABG Base Excess ABG Hemoglobin ABG Oxyhemoglobin ABG Sodium ABG Potassium ABG Chloride ABG Glucose Oxyhemoglobin Carboxyhemoglobin Sodium 135 L Potassium 3.4 L Chloride 91.8 L Carbon Dioxide 36 H BUN 57 H Creatinine 6.8 H Glucose 163 H POC Glucose Hemoglobin A1c Lactic Acid Calcium 7.0 L Phosphorus Magnesium 1.60 L Ferritin Total Bilirubin AST ALT Lactate Dehydrogenase C-Reactive Protein Albumin Triglycerides Arterial Blood Glucose Arterial Blood Ionized Calcium Urine Creatinine Coronavirus (PCR) Crossmatch 02/12/21 02/12/21 02/12/21 10:45 12:04 17:19 WBC RBC Hgb Hct MCV MCH MCHC RDW Plt Count Lymph % (Auto) Lymph # (Auto) Seg Neutrophils % Seg Neuts % (Manual) Lymphocytes % (Manual) Monocytes % (Manual) Nucleated RBC % Seg Neutrophils # Seg Neutrophils # Man Lymphocytes # (Manual) Monocytes # (Manual) Eosinophils # (Manual) INR D-Dimer ABG pH POC ABG pCO2 POC ABG pO2 ABG pO2 ABG HCO3 ABG O2 Saturation ABG Base Excess ABG Hemoglobin ABG Oxyhemoglobin ABG Sodium ABG Potassium ABG Chloride ABG Glucose Oxyhemoglobin Carboxyhemoglobin Sodium Potassium Chloride Carbon Dioxide BUN Creatinine Glucose POC Glucose 165 H 165 H Hemoglobin A1c Lactic Acid Calcium Phosphorus Magnesium Ferritin Total Bilirubin AST ALT Lactate Dehydrogenase C-Reactive Protein Albumin Triglycerides 182 H Arterial Blood Glucose Arterial Blood Ionized Calcium Urine Creatinine Coronavirus (PCR) Crossmatch 02/12/21 02/13/21 02/13/21 23:18 05:00 05:36 WBC RBC Hgb Hct MCV MCH MCHC RDW Plt Count Lymph % (Auto) Lymph # (Auto) Seg Neutrophils % Seg Neuts % (Manual) Lymphocytes % (Manual) Monocytes % (Manual) Nucleated RBC % Seg Neutrophils # Seg Neutrophils # Man Lymphocytes # (Manual) Monocytes # (Manual) Eosinophils # (Manual) INR D-Dimer ABG pH POC ABG pCO2 60.8 H POC ABG pO2 76.4 L ABG pO2 ABG HCO3 ABG O2 Saturation ABG Base Excess ABG Hemoglobin 7.4 L ABG Oxyhemoglobin ABG Sodium 133.2 L ABG Potassium 3.3 L ABG Chloride 96.0 L ABG Glucose 168 H Oxyhemoglobin Carboxyhemoglobin Sodium Potassium Chloride Carbon Dioxide BUN Creatinine Glucose POC Glucose 163 H 151 H Hemoglobin A1c Lactic Acid Calcium Phosphorus Magnesium Ferritin Total Bilirubin AST ALT Lactate Dehydrogenase C-Reactive Protein Albumin Triglycerides Arterial Blood Glucose 168 H Arterial Blood Ionized Calcium 4.3 L Urine Creatinine Coronavirus (PCR) Crossmatch 02/13/21 02/13/21 02/13/21 06:40 06:40 06:40 WBC RBC 2.19 L Hgb 7.0 L Hct 20.8 L MCV 95 H MCH MCHC RDW Plt Count Lymph % (Auto) Lymph # (Auto) Seg Neutrophils % Seg Neuts % (Manual) Lymphocytes % (Manual) Monocytes % (Manual) Nucleated RBC % Seg Neutrophils # Seg Neutrophils # Man Lymphocytes # (Manual) Monocytes # (Manual) Eosinophils # (Manual) INR D-Dimer ABG pH POC ABG pCO2 POC ABG pO2 ABG pO2 ABG HCO3 ABG O2 Saturation ABG Base Excess ABG Hemoglobin ABG Oxyhemoglobin ABG Sodium ABG Potassium ABG Chloride ABG Glucose Oxyhemoglobin Carboxyhemoglobin Sodium 135 L Potassium 3.4 L Chloride 93.0 L Carbon Dioxide 32 H BUN 46 H Creatinine 5.8 H Glucose 148 H POC Glucose Hemoglobin A1c Lactic Acid Calcium 7.9 L Phosphorus Magnesium Ferritin Total Bilirubin AST ALT Lactate Dehydrogenase C-Reactive Protein 16.80 H Albumin Triglycerides Arterial Blood Glucose Arterial Blood Ionized Calcium Urine Creatinine Coronavirus (PCR) Crossmatch 02/13/21 02/13/21 02/13/21 06:40 07:38 07:38 WBC RBC Hgb Hct MCV MCH MCHC RDW Plt Count Lymph % (Auto) Lymph # (Auto) Seg Neutrophils % Seg Neuts % (Manual) Lymphocytes % (Manual) Monocytes % (Manual) Nucleated RBC % Seg Neutrophils # Seg Neutrophils # Man Lymphocytes # (Manual) Monocytes # (Manual) Eosinophils # (Manual) INR D-Dimer 1722.16 H ABG pH POC ABG pCO2 POC ABG pO2 ABG pO2 ABG HCO3 ABG O2 Saturation ABG Base Excess ABG Hemoglobin ABG Oxyhemoglobin ABG Sodium ABG Potassium ABG Chloride ABG Glucose Oxyhemoglobin Carboxyhemoglobin Sodium Potassium Chloride Carbon Dioxide BUN Creatinine Glucose POC Glucose Hemoglobin A1c Lactic Acid Calcium Phosphorus Magnesium 1.60 L Ferritin 976.5 H Total Bilirubin AST ALT Lactate Dehydrogenase C-Reactive Protein Albumin Triglycerides Arterial Blood Glucose Arterial Blood Ionized Calcium Urine Creatinine Coronavirus (PCR) Crossmatch 02/13/21 02/13/21 02/13/21 12:24 16:57 23:32 WBC RBC Hgb Hct MCV MCH MCHC RDW Plt Count Lymph % (Auto) Lymph # (Auto) Seg Neutrophils % Seg Neuts % (Manual) Lymphocytes % (Manual) Monocytes % (Manual) Nucleated RBC % Seg Neutrophils # Seg Neutrophils # Man Lymphocytes # (Manual) Monocytes # (Manual) Eosinophils # (Manual) INR D-Dimer ABG pH POC ABG pCO2 POC ABG pO2 ABG pO2 ABG HCO3 ABG O2 Saturation ABG Base Excess ABG Hemoglobin ABG Oxyhemoglobin ABG Sodium ABG Potassium ABG Chloride ABG Glucose Oxyhemoglobin Carboxyhemoglobin Sodium Potassium Chloride Carbon Dioxide BUN Creatinine Glucose POC Glucose 141 H 156 H 161 H Hemoglobin A1c Lactic Acid Calcium Phosphorus Magnesium Ferritin Total Bilirubin AST ALT Lactate Dehydrogenase C-Reactive Protein Albumin Triglycerides Arterial Blood Glucose Arterial Blood Ionized Calcium Urine Creatinine Coronavirus (PCR) Crossmatch 02/14/21 02/14/21 02/14/21 04:00 05:41 11:00 WBC RBC 2.14 L Hgb 6.9 L Hct 20.7 L MCV 97 H MCH 33 H MCHC RDW Plt Count Lymph % (Auto) Lymph # (Auto) Seg Neutrophils % Seg Neuts % (Manual) Lymphocytes % (Manual) Monocytes % (Manual) Nucleated RBC % Seg Neutrophils # Seg Neutrophils # Man Lymphocytes # (Manual) Monocytes # (Manual) Eosinophils # (Manual) INR D-Dimer ABG pH POC ABG pCO2 POC ABG pO2 ABG pO2 ABG HCO3 ABG O2 Saturation ABG Base Excess ABG Hemoglobin ABG Oxyhemoglobin ABG Sodium ABG Potassium ABG Chloride ABG Glucose Oxyhemoglobin Carboxyhemoglobin Sodium Potassium Chloride Carbon Dioxide BUN Creatinine Glucose POC Glucose 143 H Hemoglobin A1c Lactic Acid Calcium Phosphorus Magnesium Ferritin Total Bilirubin AST ALT Lactate Dehydrogenase C-Reactive Protein Albumin Triglycerides Arterial Blood Glucose Arterial Blood Ionized Calcium Urine Creatinine Coronavirus (PCR) Crossmatch See Detail 02/14/21 02/14/21 02/14/21 11:51 18:08 23:41 WBC RBC Hgb Hct MCV MCH MCHC RDW Plt Count Lymph % (Auto) Lymph # (Auto) Seg Neutrophils % Seg Neuts % (Manual) Lymphocytes % (Manual) Monocytes % (Manual) Nucleated RBC % Seg Neutrophils # Seg Neutrophils # Man Lymphocytes # (Manual) Monocytes # (Manual) Eosinophils # (Manual) INR D-Dimer ABG pH POC ABG pCO2 POC ABG pO2 ABG pO2 ABG HCO3 ABG O2 Saturation ABG Base Excess ABG Hemoglobin ABG Oxyhemoglobin ABG Sodium ABG Potassium ABG Chloride ABG Glucose Oxyhemoglobin Carboxyhemoglobin Sodium Potassium Chloride Carbon Dioxide BUN Creatinine Glucose POC Glucose 113 H 123 H 120 H Hemoglobin A1c Lactic Acid Calcium Phosphorus Magnesium Ferritin Total Bilirubin AST ALT Lactate Dehydrogenase C-Reactive Protein Albumin Triglycerides Arterial Blood Glucose Arterial Blood Ionized Calcium Urine Creatinine Coronavirus (PCR) Crossmatch 02/14/21 02/15/21 02/15/21 Unknown 05:00 05:00 WBC RBC Hgb Hct MCV MCH MCHC RDW Plt Count Lymph % (Auto) Lymph # (Auto) Seg Neutrophils % Seg Neuts % (Manual) Lymphocytes % (Manual) Monocytes % (Manual) Nucleated RBC % Seg Neutrophils # Seg Neutrophils # Man Lymphocytes # (Manual) Monocytes # (Manual) Eosinophils # (Manual) INR D-Dimer ABG pH POC ABG pCO2 53.4 H POC ABG pO2 61.8 L ABG pO2 ABG HCO3 ABG O2 Saturation ABG Base Excess ABG Hemoglobin 7.7 L ABG Oxyhemoglobin 88.8 L ABG Sodium ABG Potassium ABG Chloride ABG Glucose 143 H Oxyhemoglobin Carboxyhemoglobin 1.6 H Sodium Potassium Chloride 96.9 L Carbon Dioxide 33 H 31 H BUN 40 H 38 H Creatinine 5.2 H 4.8 H Glucose 152 H 132 H POC Glucose Hemoglobin A1c Lactic Acid Calcium 7.9 L Phosphorus Magnesium Ferritin Total Bilirubin AST ALT Lactate Dehydrogenase C-Reactive Protein Albumin Triglycerides Arterial Blood Glucose 143 H Arterial Blood Ionized Calcium Urine Creatinine Coronavirus (PCR) Crossmatch 02/15/21 02/15/21 02/15/21 05:00 05:27 12:05 WBC RBC 2.30 L Hgb 7.1 L Hct 22.1 L MCV 96 H MCH MCHC RDW 15.7 H Plt Count Lymph % (Auto) 11.0 L Lymph # (Auto) 1.1 L Seg Neutrophils % 83.0 H Seg Neuts % (Manual) Lymphocytes % (Manual) Monocytes % (Manual) Nucleated RBC % Seg Neutrophils # 8.6 H Seg Neutrophils # Man Lymphocytes # (Manual) Monocytes # (Manual) Eosinophils # (Manual) INR D-Dimer ABG pH POC ABG pCO2 POC ABG pO2 ABG pO2 ABG HCO3 ABG O2 Saturation ABG Base Excess ABG Hemoglobin ABG Oxyhemoglobin ABG Sodium ABG Potassium ABG Chloride ABG Glucose Oxyhemoglobin Carboxyhemoglobin Sodium Potassium Chloride Carbon Dioxide BUN Creatinine Glucose POC Glucose 133 H 123 H Hemoglobin A1c Lactic Acid Calcium Phosphorus Magnesium Ferritin Total Bilirubin AST ALT Lactate Dehydrogenase C-Reactive Protein Albumin Triglycerides Arterial Blood Glucose Arterial Blood Ionized Calcium Urine Creatinine Coronavirus (PCR) Crossmatch 02/15/21 02/15/21 02/16/21 17:08 23:52 03:44 WBC RBC Hgb Hct MCV MCH MCHC RDW Plt Count Lymph % (Auto) Lymph # (Auto) Seg Neutrophils % Seg Neuts % (Manual) Lymphocytes % (Manual) Monocytes % (Manual) Nucleated RBC % Seg Neutrophils # Seg Neutrophils # Man Lymphocytes # (Manual) Monocytes # (Manual) Eosinophils # (Manual) INR D-Dimer ABG pH 7.307 L POC ABG pCO2 59.5 H POC ABG pO2 63.2 L ABG pO2 ABG HCO3 ABG O2 Saturation ABG Base Excess ABG Hemoglobin 9.3 L ABG Oxyhemoglobin ABG Sodium ABG Potassium ABG Chloride ABG Glucose 148 H Oxyhemoglobin Carboxyhemoglobin Sodium Potassium Chloride Carbon Dioxide BUN Creatinine Glucose POC Glucose 129 H 136 H Hemoglobin A1c Lactic Acid Calcium Phosphorus Magnesium Ferritin Total Bilirubin AST ALT Lactate Dehydrogenase C-Reactive Protein Albumin Triglycerides Arterial Blood Glucose 148 H Arterial Blood Ionized Calcium Urine Creatinine Coronavirus (PCR) Crossmatch 02/16/21 02/16/21 02/16/21 05:26 06:00 12:14 WBC RBC Hgb Hct MCV MCH MCHC RDW Plt Count Lymph % (Auto) Lymph # (Auto) Seg Neutrophils % Seg Neuts % (Manual) Lymphocytes % (Manual) Monocytes % (Manual) Nucleated RBC % Seg Neutrophils # Seg Neutrophils # Man Lymphocytes # (Manual) Monocytes # (Manual) Eosinophils # (Manual) INR D-Dimer ABG pH POC ABG pCO2 POC ABG pO2 ABG pO2 ABG HCO3 ABG O2 Saturation ABG Base Excess ABG Hemoglobin ABG Oxyhemoglobin ABG Sodium ABG Potassium ABG Chloride ABG Glucose Oxyhemoglobin Carboxyhemoglobin Sodium Potassium Chloride Carbon Dioxide BUN 52 H Creatinine 6.0 H Glucose 138 H POC Glucose 135 H 128 H Hemoglobin A1c Lactic Acid Calcium Phosphorus Magnesium Ferritin Total Bilirubin AST ALT Lactate Dehydrogenase C-Reactive Protein Albumin Triglycerides Arterial Blood Glucose Arterial Blood Ionized Calcium Urine Creatinine Coronavirus (PCR) Crossmatch 02/16/21 02/16/21 02/16/21 17:09 17:09 17:09 WBC RBC Hgb Hct MCV MCH MCHC RDW Plt Count Lymph % (Auto) Lymph # (Auto) Seg Neutrophils % Seg Neuts % (Manual) Lymphocytes % (Manual) Monocytes % (Manual) Nucleated RBC % Seg Neutrophils # Seg Neutrophils # Man Lymphocytes # (Manual) Monocytes # (Manual) Eosinophils # (Manual) INR D-Dimer 4256.08 H ABG pH POC ABG pCO2 POC ABG pO2 ABG pO2 ABG HCO3 ABG O2 Saturation ABG Base Excess ABG Hemoglobin ABG Oxyhemoglobin ABG Sodium ABG Potassium ABG Chloride ABG Glucose Oxyhemoglobin Carboxyhemoglobin Sodium Potassium Chloride Carbon Dioxide BUN Creatinine Glucose POC Glucose Hemoglobin A1c Lactic Acid Calcium Phosphorus Magnesium Ferritin 980.6 H Total Bilirubin AST ALT Lactate Dehydrogenase 441 H C-Reactive Protein 20.20 H Albumin Triglycerides Arterial Blood Glucose Arterial Blood Ionized Calcium Urine Creatinine Coronavirus (PCR) Crossmatch 02/16/21 02/16/21 02/16/21 17:25 23:16 Unknown WBC RBC 2.19 L Hgb 7.1 L Hct 21.3 L MCV 98 H MCH 33 H MCHC RDW 16.0 H Plt Count Lymph % (Auto) Lymph # (Auto) Seg Neutrophils % Seg Neuts % (Manual) 85.0 H Lymphocytes % (Manual) 6.0 L Monocytes % (Manual) Nucleated RBC % 4.0 H Seg Neutrophils # Seg Neutrophils # Man Lymphocytes # (Manual) 0.5 L Monocytes # (Manual) Eosinophils # (Manual) INR D-Dimer ABG pH POC ABG pCO2 POC ABG pO2 ABG pO2 ABG HCO3 ABG O2 Saturation ABG Base Excess ABG Hemoglobin ABG Oxyhemoglobin ABG Sodium ABG Potassium ABG Chloride ABG Glucose Oxyhemoglobin Carboxyhemoglobin Sodium Potassium Chloride Carbon Dioxide BUN Creatinine Glucose POC Glucose 146 H 150 H Hemoglobin A1c Lactic Acid Calcium Phosphorus Magnesium Ferritin Total Bilirubin AST ALT Lactate Dehydrogenase C-Reactive Protein Albumin Triglycerides Arterial Blood Glucose Arterial Blood Ionized Calcium Urine Creatinine Coronavirus (PCR) Crossmatch 02/17/21 02/17/21 02/17/21 04:00 04:14 04:14 WBC RBC Hgb Hct MCV MCH MCHC RDW Plt Count Lymph % (Auto) Lymph # (Auto) Seg Neutrophils % Seg Neuts % (Manual) Lymphocytes % (Manual) Monocytes % (Manual) Nucleated RBC % Seg Neutrophils # Seg Neutrophils # Man Lymphocytes # (Manual) Monocytes # (Manual) Eosinophils # (Manual) INR D-Dimer 3183.35 H ABG pH 7.293 L POC ABG pCO2 59.5 H POC ABG pO2 68.1 L ABG pO2 ABG HCO3 ABG O2 Saturation ABG Base Excess ABG Hemoglobin 7.7 L ABG Oxyhemoglobin ABG Sodium 133.4 L ABG Potassium ABG Chloride ABG Glucose 143 H Oxyhemoglobin Carboxyhemoglobin Sodium 136 L Potassium Chloride 97.3 L Carbon Dioxide BUN 49 H Creatinine 5.3 H Glucose 139 H POC Glucose Hemoglobin A1c Lactic Acid Calcium Phosphorus Magnesium Ferritin Total Bilirubin AST ALT Lactate Dehydrogenase C-Reactive Protein Albumin Triglycerides Arterial Blood Glucose 143 H Arterial Blood Ionized Calcium Urine Creatinine Coronavirus (PCR) Crossmatch 02/17/21 02/17/21 02/17/21 04:14 04:14 04:14 WBC RBC 2.14 L Hgb 6.9 L Hct 21.0 L MCV 98 H MCH MCHC RDW 15.8 H Plt Count Lymph % (Auto) Lymph # (Auto) Seg Neutrophils % Seg Neuts % (Manual) Lymphocytes % (Manual) Monocytes % (Manual) Nucleated RBC % Seg Neutrophils # Seg Neutrophils # Man Lymphocytes # (Manual) Monocytes # (Manual) Eosinophils # (Manual) INR D-Dimer ABG pH POC ABG pCO2 POC ABG pO2 ABG pO2 ABG HCO3 ABG O2 Saturation ABG Base Excess ABG Hemoglobin ABG Oxyhemoglobin ABG Sodium ABG Potassium ABG Chloride ABG Glucose Oxyhemoglobin Carboxyhemoglobin Sodium Potassium Chloride Carbon Dioxide BUN Creatinine Glucose POC Glucose Hemoglobin A1c Lactic Acid Calcium Phosphorus Magnesium Ferritin 894.0 H Total Bilirubin AST ALT Lactate Dehydrogenase 399 H C-Reactive Protein 22.10 H Albumin Triglycerides Arterial Blood Glucose Arterial Blood Ionized Calcium Urine Creatinine Coronavirus (PCR) Crossmatch 02/17/21 02/17/21 02/17/21 06:06 07:45 12:25 WBC RBC Hgb 7.6 L Hct 22.8 L MCV MCH MCHC RDW Plt Count Lymph % (Auto) Lymph # (Auto) Seg Neutrophils % Seg Neuts % (Manual) Lymphocytes % (Manual) Monocytes % (Manual) Nucleated RBC % Seg Neutrophils # Seg Neutrophils # Man Lymphocytes # (Manual) Monocytes # (Manual) Eosinophils # (Manual) INR D-Dimer ABG pH POC ABG pCO2 POC ABG pO2 ABG pO2 ABG HCO3 ABG O2 Saturation ABG Base Excess ABG Hemoglobin ABG Oxyhemoglobin ABG Sodium ABG Potassium ABG Chloride ABG Glucose Oxyhemoglobin Carboxyhemoglobin Sodium Potassium Chloride Carbon Dioxide BUN Creatinine Glucose POC Glucose 134 H Hemoglobin A1c Lactic Acid Calcium Phosphorus Magnesium Ferritin Total Bilirubin AST ALT Lactate Dehydrogenase C-Reactive Protein Albumin Triglycerides Arterial Blood Glucose Arterial Blood Ionized Calcium Urine Creatinine Coronavirus (PCR) Crossmatch See Detail 02/17/21 02/17/21 02/17/21 12:35 17:56 23:34 WBC RBC Hgb Hct MCV MCH MCHC RDW Plt Count Lymph % (Auto) Lymph # (Auto) Seg Neutrophils % Seg Neuts % (Manual) Lymphocytes % (Manual) Monocytes % (Manual) Nucleated RBC % Seg Neutrophils # Seg Neutrophils # Man Lymphocytes # (Manual) Monocytes # (Manual) Eosinophils # (Manual) INR D-Dimer ABG pH POC ABG pCO2 POC ABG pO2 ABG pO2 ABG HCO3 ABG O2 Saturation ABG Base Excess ABG Hemoglobin ABG Oxyhemoglobin ABG Sodium ABG Potassium ABG Chloride ABG Glucose Oxyhemoglobin Carboxyhemoglobin Sodium Potassium Chloride Carbon Dioxide BUN Creatinine Glucose POC Glucose 114 H 128 H 120 H Hemoglobin A1c Lactic Acid Calcium Phosphorus Magnesium Ferritin Total Bilirubin AST ALT Lactate Dehydrogenase C-Reactive Protein Albumin Triglycerides Arterial Blood Glucose Arterial Blood Ionized Calcium Urine Creatinine Coronavirus (PCR) Crossmatch 02/18/21 02/18/21 02/18/21 04:03 04:55 05:02 WBC RBC 2.40 L Hgb 7.5 L Hct 23.1 L MCV 96 H MCH MCHC RDW 16.8 H Plt Count Lymph % (Auto) Lymph # (Auto) Seg Neutrophils % Seg Neuts % (Manual) Lymphocytes % (Manual) Monocytes % (Manual) Nucleated RBC % Seg Neutrophils # Seg Neutrophils # Man Lymphocytes # (Manual) Monocytes # (Manual) Eosinophils # (Manual) INR D-Dimer ABG pH 7.219 L POC ABG pCO2 58.7 H POC ABG pO2 64.2 L ABG pO2 ABG HCO3 ABG O2 Saturation ABG Base Excess ABG Hemoglobin ABG Oxyhemoglobin ABG Sodium 130.5 L ABG Potassium ABG Chloride ABG Glucose 147 H Oxyhemoglobin Carboxyhemoglobin Sodium 134 L Potassium Chloride 97.9 L Carbon Dioxide BUN 64 H Creatinine 6.5 H Glucose 135 H POC Glucose Hemoglobin A1c Lactic Acid Calcium 8.0 L Phosphorus Magnesium Ferritin Total Bilirubin AST ALT Lactate Dehydrogenase C-Reactive Protein Albumin Triglycerides Arterial Blood Glucose 147 H Arterial Blood Ionized Calcium Urine Creatinine Coronavirus (PCR) Crossmatch 02/18/21 02/18/21 02/18/21 05:27 10:00 11:51 WBC RBC Hgb Hct MCV MCH MCHC RDW Plt Count Lymph % (Auto) Lymph # (Auto) Seg Neutrophils % Seg Neuts % (Manual) Lymphocytes % (Manual) Monocytes % (Manual) Nucleated RBC % Seg Neutrophils # Seg Neutrophils # Man Lymphocytes # (Manual) Monocytes # (Manual) Eosinophils # (Manual) INR D-Dimer ABG pH POC ABG pCO2 POC ABG pO2 ABG pO2 ABG HCO3 ABG O2 Saturation ABG Base Excess ABG Hemoglobin ABG Oxyhemoglobin ABG Sodium ABG Potassium ABG Chloride ABG Glucose Oxyhemoglobin Carboxyhemoglobin Sodium Potassium Chloride Carbon Dioxide BUN Creatinine Glucose POC Glucose 130 H 123 H Hemoglobin A1c Lactic Acid Calcium Phosphorus Magnesium Ferritin Total Bilirubin AST ALT Lactate Dehydrogenase C-Reactive Protein Albumin Triglycerides Arterial Blood Glucose Arterial Blood Ionized Calcium Urine Creatinine Coronavirus (PCR) Positive A Crossmatch 02/18/21 02/18/21 02/19/21 18:10 23:35 05:00 WBC RBC Hgb Hct MCV MCH MCHC RDW Plt Count Lymph % (Auto) Lymph # (Auto) Seg Neutrophils % Seg Neuts % (Manual) Lymphocytes % (Manual) Monocytes % (Manual) Nucleated RBC % Seg Neutrophils # Seg Neutrophils # Man Lymphocytes # (Manual) Monocytes # (Manual) Eosinophils # (Manual) INR D-Dimer ABG pH 7.232 L POC ABG pCO2 64.3 H POC ABG pO2 ABG pO2 ABG HCO3 ABG O2 Saturation ABG Base Excess ABG Hemoglobin 8.1 L ABG Oxyhemoglobin ABG Sodium 133.5 L ABG Potassium ABG Chloride ABG Glucose 148 H Oxyhemoglobin Carboxyhemoglobin 1.6 H Sodium Potassium Chloride Carbon Dioxide BUN Creatinine Glucose POC Glucose 123 H 137 H Hemoglobin A1c Lactic Acid Calcium Phosphorus Magnesium Ferritin Total Bilirubin AST ALT Lactate Dehydrogenase C-Reactive Protein Albumin Triglycerides Arterial Blood Glucose 148 H Arterial Blood Ionized Calcium Urine Creatinine Coronavirus (PCR) Crossmatch 02/19/21 02/19/21 02/19/21 05:12 05:45 05:45 WBC RBC Hgb Hct MCV MCH MCHC RDW Plt Count Lymph % (Auto) Lymph # (Auto) Seg Neutrophils % Seg Neuts % (Manual) Lymphocytes % (Manual) Monocytes % (Manual) Nucleated RBC % Seg Neutrophils # Seg Neutrophils # Man Lymphocytes # (Manual) Monocytes # (Manual) Eosinophils # (Manual) INR D-Dimer 4840.82 H ABG pH POC ABG pCO2 POC ABG pO2 ABG pO2 ABG HCO3 ABG O2 Saturation ABG Base Excess ABG Hemoglobin ABG Oxyhemoglobin ABG Sodium ABG Potassium ABG Chloride ABG Glucose Oxyhemoglobin Carboxyhemoglobin Sodium 135 L Potassium Chloride 97.8 L Carbon Dioxide BUN 58 H Creatinine 5.6 H Glucose 140 H POC Glucose 134 H Hemoglobin A1c Lactic Acid Calcium Phosphorus Magnesium Ferritin Total Bilirubin AST ALT Lactate Dehydrogenase 345 H C-Reactive Protein 15.20 H Albumin Triglycerides 195 H Arterial Blood Glucose Arterial Blood Ionized Calcium Urine Creatinine Coronavirus (PCR) Crossmatch 02/19/21 02/19/21 02/19/21 05:45 12:00 17:48 WBC RBC Hgb Hct MCV MCH MCHC RDW Plt Count Lymph % (Auto) Lymph # (Auto) Seg Neutrophils % Seg Neuts % (Manual) Lymphocytes % (Manual) Monocytes % (Manual) Nucleated RBC % Seg Neutrophils # Seg Neutrophils # Man Lymphocytes # (Manual) Monocytes # (Manual) Eosinophils # (Manual) INR D-Dimer ABG pH POC ABG pCO2 POC ABG pO2 ABG pO2 ABG HCO3 ABG O2 Saturation ABG Base Excess ABG Hemoglobin ABG Oxyhemoglobin ABG Sodium ABG Potassium ABG Chloride ABG Glucose Oxyhemoglobin Carboxyhemoglobin Sodium Potassium Chloride Carbon Dioxide BUN Creatinine Glucose POC Glucose 122 H 119 H Hemoglobin A1c Lactic Acid Calcium Phosphorus Magnesium Ferritin 951.8 H Total Bilirubin AST ALT Lactate Dehydrogenase C-Reactive Protein Albumin Triglycerides Arterial Blood Glucose Arterial Blood Ionized Calcium Urine Creatinine Coronavirus (PCR) Crossmatch 02/20/21 02/20/21 02/20/21 03:20 04:00 11:48 WBC RBC Hgb Hct MCV MCH MCHC RDW Plt Count Lymph % (Auto) Lymph # (Auto) Seg Neutrophils % Seg Neuts % (Manual) Lymphocytes % (Manual) Monocytes % (Manual) Nucleated RBC % Seg Neutrophils # Seg Neutrophils # Man Lymphocytes # (Manual) Monocytes # (Manual) Eosinophils # (Manual) INR D-Dimer ABG pH 7.276 L POC ABG pCO2 57.3 H POC ABG pO2 71.0 L ABG pO2 ABG HCO3 ABG O2 Saturation ABG Base Excess ABG Hemoglobin 8.2 L ABG Oxyhemoglobin 91.9 L ABG Sodium 128.1 L ABG Potassium 4.8 H ABG Chloride ABG Glucose Oxyhemoglobin Carboxyhemoglobin 1.6 H Sodium 136 L Potassium Chloride Carbon Dioxide BUN 69 H Creatinine 6.4 H Glucose POC Glucose 131 H Hemoglobin A1c Lactic Acid Calcium 8.1 L Phosphorus Magnesium Ferritin Total Bilirubin AST ALT Lactate Dehydrogenase C-Reactive Protein Albumin Triglycerides Arterial Blood Glucose Arterial Blood Ionized Calcium 4.5 L Urine Creatinine Coronavirus (PCR) Crossmatch 02/20/21 02/20/21 02/21/21 18:05 23:28 02:53 WBC RBC Hgb Hct MCV MCH MCHC RDW Plt Count Lymph % (Auto) Lymph # (Auto) Seg Neutrophils % Seg Neuts % (Manual) Lymphocytes % (Manual) Monocytes % (Manual) Nucleated RBC % Seg Neutrophils # Seg Neutrophils # Man Lymphocytes # (Manual) Monocytes # (Manual) Eosinophils # (Manual) INR D-Dimer ABG pH 7.288 L POC ABG pCO2 52.7 H POC ABG pO2 81.5 L ABG pO2 ABG HCO3 ABG O2 Saturation ABG Base Excess ABG Hemoglobin 8.5 L ABG Oxyhemoglobin 93.6 L ABG Sodium 132.5 L ABG Potassium 4.6 H ABG Chloride ABG Glucose 106 H Oxyhemoglobin Carboxyhemoglobin 1.6 H Sodium Potassium Chloride Carbon Dioxide BUN Creatinine Glucose POC Glucose 114 H 118 H Hemoglobin A1c Lactic Acid Calcium Phosphorus Magnesium Ferritin Total Bilirubin AST ALT Lactate Dehydrogenase C-Reactive Protein Albumin Triglycerides Arterial Blood Glucose 106 H Arterial Blood Ionized Calcium 4.4 L Urine Creatinine Coronavirus (PCR) Crossmatch 02/21/21 02/21/21 02/21/21 05:29 11:42 16:35 WBC RBC Hgb Hct MCV MCH MCHC RDW Plt Count Lymph % (Auto) Lymph # (Auto) Seg Neutrophils % Seg Neuts % (Manual) Lymphocytes % (Manual) Monocytes % (Manual) Nucleated RBC % Seg Neutrophils # Seg Neutrophils # Man Lymphocytes # (Manual) Monocytes # (Manual) Eosinophils # (Manual) INR D-Dimer ABG pH POC ABG pCO2 POC ABG pO2 ABG pO2 ABG HCO3 ABG O2 Saturation ABG Base Excess ABG Hemoglobin ABG Oxyhemoglobin ABG Sodium ABG Potassium ABG Chloride ABG Glucose Oxyhemoglobin Carboxyhemoglobin Sodium Potassium 5.6 H Chloride 97.6 L Carbon Dioxide BUN 68 H Creatinine 5.7 H Glucose 160 H POC Glucose 111 H 131 H Hemoglobin A1c Lactic Acid Calcium 8.0 L Phosphorus 7.90 H Magnesium 2.60 H Ferritin Total Bilirubin AST ALT Lactate Dehydrogenase C-Reactive Protein Albumin Triglycerides Arterial Blood Glucose Arterial Blood Ionized Calcium Urine Creatinine Coronavirus (PCR) Crossmatch 02/21/21 02/22/21 02/22/21 17:17 00:04 04:22 WBC RBC Hgb Hct MCV MCH MCHC RDW Plt Count Lymph % (Auto) Lymph # (Auto) Seg Neutrophils % Seg Neuts % (Manual) Lymphocytes % (Manual) Monocytes % (Manual) Nucleated RBC % Seg Neutrophils # Seg Neutrophils # Man Lymphocytes # (Manual) Monocytes # (Manual) Eosinophils # (Manual) INR D-Dimer ABG pH 7.250 L POC ABG pCO2 60.1 H POC ABG pO2 57.6 L ABG pO2 ABG HCO3 ABG O2 Saturation ABG Base Excess ABG Hemoglobin 8.8 L ABG Oxyhemoglobin 87.0 L ABG Sodium 133.4 L ABG Potassium 5.1 H ABG Chloride ABG Glucose 124 H Oxyhemoglobin Carboxyhemoglobin Sodium Potassium Chloride Carbon Dioxide BUN Creatinine Glucose POC Glucose 135 H 121 H Hemoglobin A1c Lactic Acid Calcium Phosphorus Magnesium Ferritin Total Bilirubin AST ALT Lactate Dehydrogenase C-Reactive Protein Albumin Triglycerides Arterial Blood Glucose 124 H Arterial Blood Ionized Calcium Urine Creatinine Coronavirus (PCR) Crossmatch 02/22/21 02/22/21 02/22/21 05:33 09:41 09:41 WBC 13.2 H RBC 2.35 L Hgb 7.5 L Hct 22.7 L MCV 96 H MCH MCHC RDW 17.0 H Plt Count Lymph % (Auto) Lymph # (Auto) Seg Neutrophils % Seg Neuts % (Manual) 93.0 H Lymphocytes % (Manual) 4.0 L Monocytes % (Manual) Nucleated RBC % 1.0 H Seg Neutrophils # Seg Neutrophils # Man 12.3 H Lymphocytes # (Manual) 0.5 L Monocytes # (Manual) Eosinophils # (Manual) INR D-Dimer ABG pH POC ABG pCO2 POC ABG pO2 ABG pO2 ABG HCO3 ABG O2 Saturation ABG Base Excess ABG Hemoglobin ABG Oxyhemoglobin ABG Sodium ABG Potassium ABG Chloride ABG Glucose Oxyhemoglobin Carboxyhemoglobin Sodium Potassium 5.4 H Chloride Carbon Dioxide BUN 61 H Creatinine 5.5 H Glucose 117 H POC Glucose 114 H Hemoglobin A1c Lactic Acid Calcium 8.3 L Phosphorus Magnesium Ferritin Total Bilirubin AST ALT Lactate Dehydrogenase C-Reactive Protein Albumin Triglycerides Arterial Blood Glucose Arterial Blood Ionized Calcium Urine Creatinine Coronavirus (PCR) Crossmatch 02/22/21 02/22/21 02/23/21 12:08 17:06 04:00 WBC RBC Hgb Hct MCV MCH MCHC RDW Plt Count Lymph % (Auto) Lymph # (Auto) Seg Neutrophils % Seg Neuts % (Manual) Lymphocytes % (Manual) Monocytes % (Manual) Nucleated RBC % Seg Neutrophils # Seg Neutrophils # Man Lymphocytes # (Manual) Monocytes # (Manual) Eosinophils # (Manual) INR D-Dimer ABG pH 7.246 L POC ABG pCO2 POC ABG pO2 ABG pO2 119.4 H ABG HCO3 26.6 H ABG O2 Saturation ABG Base Excess ABG Hemoglobin 8.8 L ABG Oxyhemoglobin ABG Sodium ABG Potassium ABG Chloride ABG Glucose Oxyhemoglobin Carboxyhemoglobin Sodium Potassium Chloride Carbon Dioxide BUN Creatinine Glucose POC Glucose 133 H 114 H Hemoglobin A1c Lactic Acid Calcium Phosphorus Magnesium Ferritin Total Bilirubin AST ALT Lactate Dehydrogenase C-Reactive Protein Albumin Triglycerides Arterial Blood Glucose Arterial Blood Ionized Calcium Urine Creatinine Coronavirus (PCR) Crossmatch 02/23/21 02/23/21 02/24/21 06:20 11:42 03:43 WBC RBC Hgb Hct MCV MCH MCHC RDW Plt Count Lymph % (Auto) Lymph # (Auto) Seg Neutrophils % Seg Neuts % (Manual) Lymphocytes % (Manual) Monocytes % (Manual) Nucleated RBC % Seg Neutrophils # Seg Neutrophils # Man Lymphocytes # (Manual) Monocytes # (Manual) Eosinophils # (Manual) INR D-Dimer ABG pH 7.287 L POC ABG pCO2 54.7 H POC ABG pO2 ABG pO2 ABG HCO3 ABG O2 Saturation ABG Base Excess ABG Hemoglobin 8.5 L ABG Oxyhemoglobin ABG Sodium 135.6 L ABG Potassium ABG Chloride ABG Glucose 117 H Oxyhemoglobin Carboxyhemoglobin Sodium Potassium Chloride 97.6 L Carbon Dioxide BUN 79 H Creatinine 6.2 H Glucose POC Glucose 108 H Hemoglobin A1c Lactic Acid Calcium 8.3 L Phosphorus Magnesium Ferritin Total Bilirubin AST ALT Lactate Dehydrogenase C-Reactive Protein Albumin Triglycerides Arterial Blood Glucose 117 H Arterial Blood Ionized Calcium Urine Creatinine Coronavirus (PCR) Crossmatch 02/24/21 02/24/21 02/24/21 04:25 04:25 04:25 WBC 11.5 H RBC 2.47 L Hgb 7.7 L Hct 23.5 L MCV 95 H MCH MCHC RDW 16.7 H Plt Count Lymph % (Auto) Lymph # (Auto) Seg Neutrophils % Seg Neuts % (Manual) 82.0 H Lymphocytes % (Manual) 3.0 L Monocytes % (Manual) 11.0 H Nucleated RBC % Seg Neutrophils # Seg Neutrophils # Man 9.4 H Lymphocytes # (Manual) 0.3 L Monocytes # (Manual) 1.3 H Eosinophils # (Manual) INR D-Dimer 4695.21 H ABG pH POC ABG pCO2 POC ABG pO2 ABG pO2 ABG HCO3 ABG O2 Saturation ABG Base Excess ABG Hemoglobin ABG Oxyhemoglobin ABG Sodium ABG Potassium ABG Chloride ABG Glucose Oxyhemoglobin Carboxyhemoglobin Sodium Potassium Chloride Carbon Dioxide BUN 68 H Creatinine 4.9 H Glucose 113 H POC Glucose Hemoglobin A1c Lactic Acid Calcium Phosphorus Magnesium Ferritin Total Bilirubin AST ALT Lactate Dehydrogenase C-Reactive Protein 7.20 H Albumin Triglycerides Arterial Blood Glucose Arterial Blood Ionized Calcium Urine Creatinine Coronavirus (PCR) Crossmatch 02/24/21 02/24/21 02/24/21 04:25 05:01 11:12 WBC RBC Hgb Hct MCV MCH MCHC RDW Plt Count Lymph % (Auto) Lymph # (Auto) Seg Neutrophils % Seg Neuts % (Manual) Lymphocytes % (Manual) Monocytes % (Manual) Nucleated RBC % Seg Neutrophils # Seg Neutrophils # Man Lymphocytes # (Manual) Monocytes # (Manual) Eosinophils # (Manual) INR D-Dimer ABG pH POC ABG pCO2 POC ABG pO2 ABG pO2 ABG HCO3 ABG O2 Saturation ABG Base Excess ABG Hemoglobin ABG Oxyhemoglobin ABG Sodium ABG Potassium ABG Chloride ABG Glucose Oxyhemoglobin Carboxyhemoglobin Sodium Potassium Chloride Carbon Dioxide BUN Creatinine Glucose POC Glucose 116 H 112 H Hemoglobin A1c Lactic Acid Calcium Phosphorus Magnesium Ferritin 1116.0 H Total Bilirubin AST ALT Lactate Dehydrogenase C-Reactive Protein Albumin Triglycerides Arterial Blood Glucose Arterial Blood Ionized Calcium Urine Creatinine Coronavirus (PCR) Crossmatch 02/24/21 02/25/21 02/25/21 18:11 03:42 05:58 WBC RBC Hgb Hct MCV MCH MCHC RDW Plt Count Lymph % (Auto) Lymph # (Auto) Seg Neutrophils % Seg Neuts % (Manual) Lymphocytes % (Manual) Monocytes % (Manual) Nucleated RBC % Seg Neutrophils # Seg Neutrophils # Man Lymphocytes # (Manual) Monocytes # (Manual) Eosinophils # (Manual) INR D-Dimer ABG pH 7.287 L POC ABG pCO2 58.2 H POC ABG pO2 ABG pO2 ABG HCO3 ABG O2 Saturation ABG Base Excess ABG Hemoglobin 8.4 L ABG Oxyhemoglobin 93.7 L ABG Sodium ABG Potassium ABG Chloride ABG Glucose 104 H Oxyhemoglobin Carboxyhemoglobin Sodium Potassium Chloride Carbon Dioxide BUN Creatinine Glucose POC Glucose 109 H 109 H Hemoglobin A1c Lactic Acid Calcium Phosphorus Magnesium Ferritin Total Bilirubin AST ALT Lactate Dehydrogenase C-Reactive Protein Albumin Triglycerides Arterial Blood Glucose 104 H Arterial Blood Ionized Calcium 4.5 L Urine Creatinine Coronavirus (PCR) Crossmatch 02/25/21 02/25/21 02/25/21 09:03 13:47 16:50 WBC RBC Hgb Hct MCV MCH MCHC RDW Plt Count Lymph % (Auto) Lymph # (Auto) Seg Neutrophils % Seg Neuts % (Manual) Lymphocytes % (Manual) Monocytes % (Manual) Nucleated RBC % Seg Neutrophils # Seg Neutrophils # Man Lymphocytes # (Manual) Monocytes # (Manual) Eosinophils # (Manual) INR D-Dimer 6536.84 H ABG pH POC ABG pCO2 POC ABG pO2 ABG pO2 ABG HCO3 ABG O2 Saturation ABG Base Excess ABG Hemoglobin ABG Oxyhemoglobin ABG Sodium ABG Potassium ABG Chloride ABG Glucose Oxyhemoglobin Carboxyhemoglobin Sodium Potassium Chloride Carbon Dioxide BUN Creatinine Glucose POC Glucose 144 H 114 H Hemoglobin A1c Lactic Acid Calcium Phosphorus Magnesium Ferritin Total Bilirubin AST ALT Lactate Dehydrogenase C-Reactive Protein Albumin Triglycerides Arterial Blood Glucose Arterial Blood Ionized Calcium Urine Creatinine Coronavirus (PCR) Crossmatch 02/25/21 02/26/21 02/26/21 23:53 03:35 05:36 WBC RBC Hgb Hct MCV MCH MCHC RDW Plt Count Lymph % (Auto) Lymph # (Auto) Seg Neutrophils % Seg Neuts % (Manual) Lymphocytes % (Manual) Monocytes % (Manual) Nucleated RBC % Seg Neutrophils # Seg Neutrophils # Man Lymphocytes # (Manual) Monocytes # (Manual) Eosinophils # (Manual) INR D-Dimer ABG pH 7.179 L POC ABG pCO2 76.6 H POC ABG pO2 ABG pO2 ABG HCO3 ABG O2 Saturation ABG Base Excess ABG Hemoglobin 9.0 L ABG Oxyhemoglobin ABG Sodium 134.8 L ABG Potassium ABG Chloride ABG Glucose 118 H Oxyhemoglobin Carboxyhemoglobin Sodium Potassium Chloride Carbon Dioxide BUN Creatinine Glucose POC Glucose 110 H 113 H Hemoglobin A1c Lactic Acid Calcium Phosphorus Magnesium Ferritin Total Bilirubin AST ALT Lactate Dehydrogenase C-Reactive Protein Albumin Triglycerides Arterial Blood Glucose 118 H Arterial Blood Ionized Calcium Urine Creatinine Coronavirus (PCR) Crossmatch 02/26/21 02/26/21 02/26/21 05:48 05:48 05:48 WBC 11.4 H RBC 2.40 L Hgb 7.5 L Hct 23.2 L MCV 97 H MCH MCHC RDW 17.4 H Plt Count Lymph % (Auto) Lymph # (Auto) Seg Neutrophils % Seg Neuts % (Manual) Lymphocytes % (Manual) Monocytes % (Manual) Nucleated RBC % Seg Neutrophils # Seg Neutrophils # Man Lymphocytes # (Manual) Monocytes # (Manual) Eosinophils # (Manual) INR D-Dimer ABG pH POC ABG pCO2 POC ABG pO2 ABG pO2 ABG HCO3 ABG O2 Saturation ABG Base Excess ABG Hemoglobin ABG Oxyhemoglobin ABG Sodium ABG Potassium ABG Chloride ABG Glucose Oxyhemoglobin Carboxyhemoglobin Sodium Potassium Chloride Carbon Dioxide BUN 72 H Creatinine 4.5 H Glucose 112 H POC Glucose Hemoglobin A1c Lactic Acid Calcium 7.7 L Phosphorus Magnesium Ferritin 867.8 H Total Bilirubin AST ALT Lactate Dehydrogenase C-Reactive Protein 5.90 H Albumin Triglycerides Arterial Blood Glucose Arterial Blood Ionized Calcium Urine Creatinine Coronavirus (PCR) Crossmatch 02/26/21 02/26/21 02/26/21 08:00 11:29 18:13 WBC RBC Hgb Hct MCV MCH MCHC RDW Plt Count Lymph % (Auto) Lymph # (Auto) Seg Neutrophils % Seg Neuts % (Manual) Lymphocytes % (Manual) Monocytes % (Manual) Nucleated RBC % Seg Neutrophils # Seg Neutrophils # Man Lymphocytes # (Manual) Monocytes # (Manual) Eosinophils # (Manual) INR D-Dimer ABG pH 7.228 L POC ABG pCO2 70.2 H POC ABG pO2 79.7 L ABG pO2 ABG HCO3 ABG O2 Saturation ABG Base Excess ABG Hemoglobin 7.6 L ABG Oxyhemoglobin 93.2 L ABG Sodium 135.7 L ABG Potassium ABG Chloride ABG Glucose 119 H Oxyhemoglobin Carboxyhemoglobin Sodium Potassium Chloride Carbon Dioxide BUN Creatinine Glucose POC Glucose 110 H 115 H Hemoglobin A1c Lactic Acid Calcium Phosphorus Magnesium Ferritin Total Bilirubin AST ALT Lactate Dehydrogenase C-Reactive Protein Albumin Triglycerides Arterial Blood Glucose 119 H Arterial Blood Ionized Calcium Urine Creatinine Coronavirus (PCR) Crossmatch 02/26/21 02/27/21 02/27/21 23:18 04:00 05:04 WBC RBC Hgb Hct MCV MCH MCHC RDW Plt Count Lymph % (Auto) Lymph # (Auto) Seg Neutrophils % Seg Neuts % (Manual) Lymphocytes % (Manual) Monocytes % (Manual) Nucleated RBC % Seg Neutrophils # Seg Neutrophils # Man Lymphocytes # (Manual) Monocytes # (Manual) Eosinophils # (Manual) INR D-Dimer ABG pH 7.316 L POC ABG pCO2 49.0 H POC ABG pO2 111.2 H ABG pO2 ABG HCO3 ABG O2 Saturation ABG Base Excess ABG Hemoglobin 7.7 L ABG Oxyhemoglobin ABG Sodium 135.0 L ABG Potassium ABG Chloride ABG Glucose 113 H Oxyhemoglobin Carboxyhemoglobin Sodium Potassium Chloride Carbon Dioxide BUN Creatinine Glucose POC Glucose 114 H 112 H Hemoglobin A1c Lactic Acid Calcium Phosphorus Magnesium Ferritin Total Bilirubin AST ALT Lactate Dehydrogenase C-Reactive Protein Albumin Triglycerides Arterial Blood Glucose 113 H Arterial Blood Ionized Calcium 4.4 L Urine Creatinine Coronavirus (PCR) Crossmatch 02/27/21 02/27/2102/27/21 12:13 18:30 23:40 WBC RBC Hgb Hct MCV MCH MCHC RDW Plt Count Lymph % (Auto) Lymph # (Auto) Seg Neutrophils % Seg Neuts % (Manual) Lymphocytes % (Manual) Monocytes % (Manual) Nucleated RBC % Seg Neutrophils # Seg Neutrophils # Man Lymphocytes # (Manual) Monocytes # (Manual) Eosinophils # (Manual) INR D-Dimer ABG pH POC ABG pCO2 POC ABG pO2 ABG pO2 ABG HCO3 ABG O2 Saturation ABG Base Excess ABG Hemoglobin ABG Oxyhemoglobin ABG Sodium ABG Potassium ABG Chloride ABG Glucose Oxyhemoglobin Carboxyhemoglobin Sodium Potassium Chloride Carbon Dioxide BUN Creatinine Glucose POC Glucose 127 H 129 H 115 H Hemoglobin A1c Lactic Acid Calcium Phosphorus Magnesium Ferritin Total Bilirubin AST ALT Lactate Dehydrogenase C-Reactive Protein Albumin Triglycerides Arterial Blood Glucose Arterial Blood Ionized Calcium Urine Creatinine Coronavirus (PCR) Crossmatch 02/28/21 02/28/21 02/28/21 04:07 05:29 10:22 WBC RBC Hgb Hct MCV MCH MCHC RDW Plt Count Lymph % (Auto) Lymph # (Auto) Seg Neutrophils % Seg Neuts % (Manual) Lymphocytes % (Manual) Monocytes % (Manual) Nucleated RBC % Seg Neutrophils # Seg Neutrophils # Man Lymphocytes # (Manual) Monocytes # (Manual) Eosinophils # (Manual) INR D-Dimer ABG pH 7.260 L POC ABG pCO2 67.6 H POC ABG pO2 ABG pO2 ABG HCO3 ABG O2 Saturation ABG Base Excess ABG Hemoglobin 7.9 L ABG Oxyhemoglobin ABG Sodium ABG Potassium ABG Chloride ABG Glucose 129 H Oxyhemoglobin Carboxyhemoglobin Sodium Potassium Chloride Carbon Dioxide BUN 68 H Creatinine 3.5 H Glucose 117 H POC Glucose 117 H Hemoglobin A1c Lactic Acid Calcium 7.9 L Phosphorus Magnesium Ferritin Total Bilirubin AST ALT Lactate Dehydrogenase C-Reactive Protein Albumin Triglycerides Arterial Blood Glucose 129 H Arterial Blood Ionized Calcium Urine Creatinine Coronavirus (PCR) Crossmatch 02/28/21 02/28/21 03/01/21 11:51 17:26 00:31 WBC RBC Hgb Hct MCV MCH MCHC RDW Plt Count Lymph % (Auto) Lymph # (Auto) Seg Neutrophils % Seg Neuts % (Manual) Lymphocytes % (Manual) Monocytes % (Manual) Nucleated RBC % Seg Neutrophils # Seg Neutrophils # Man Lymphocytes # (Manual) Monocytes # (Manual) Eosinophils # (Manual) INR D-Dimer ABG pH POC ABG pCO2 POC ABG pO2 ABG pO2 ABG HCO3 ABG O2 Saturation ABG Base Excess ABG Hemoglobin ABG Oxyhemoglobin ABG Sodium ABG Potassium ABG Chloride ABG Glucose Oxyhemoglobin Carboxyhemoglobin Sodium Potassium Chloride Carbon Dioxide BUN Creatinine Glucose POC Glucose 123 H 121 H 112 H Hemoglobin A1c Lactic Acid Calcium Phosphorus Magnesium Ferritin Total Bilirubin AST ALT Lactate Dehydrogenase C-Reactive Protein Albumin Triglycerides Arterial Blood Glucose Arterial Blood Ionized Calcium Urine Creatinine Coronavirus (PCR) Crossmatch 03/01/21 03/01/21 03/01/21 03:29 06:00 06:17 WBC RBC Hgb Hct MCV MCH MCHC RDW Plt Count Lymph % (Auto) Lymph # (Auto) Seg Neutrophils % Seg Neuts % (Manual) Lymphocytes % (Manual) Monocytes % (Manual) Nucleated RBC % Seg Neutrophils # Seg Neutrophils # Man Lymphocytes # (Manual) Monocytes # (Manual) Eosinophils # (Manual) INR D-Dimer ABG pH POC ABG pCO2 52.3 H POC ABG pO2 115.1 H ABG pO2 ABG HCO3 ABG O2 Saturation ABG Base Excess ABG Hemoglobin 7.5 L ABG Oxyhemoglobin ABG Sodium 135.6 L ABG Potassium ABG Chloride ABG Glucose 117 H Oxyhemoglobin Carboxyhemoglobin 1.6 H Sodium Potassium Chloride Carbon Dioxide BUN 78 H Creatinine 3.6 H Glucose 110 H POC Glucose 121 H Hemoglobin A1c Lactic Acid Calcium 8.0 L Phosphorus Magnesium Ferritin Total Bilirubin AST ALT Lactate Dehydrogenase C-Reactive Protein Albumin Triglycerides Arterial Blood Glucose 117 H Arterial Blood Ionized Calcium Urine Creatinine Coronavirus (PCR) Crossmatch 03/01/21 03/02/21 03/02/21 23:22 04:43 05:46 WBC RBC Hgb Hct MCV MCH MCHC RDW Plt Count Lymph % (Auto) Lymph # (Auto) Seg Neutrophils % Seg Neuts % (Manual) Lymphocytes % (Manual) Monocytes % (Manual) Nucleated RBC % Seg Neutrophils # Seg Neutrophils # Man Lymphocytes # (Manual) Monocytes # (Manual) Eosinophils # (Manual) INR D-Dimer ABG pH POC ABG pCO2 POC ABG pO2 ABG pO2 ABG HCO3 ABG O2 Saturation ABG Base Excess ABG Hemoglobin ABG Oxyhemoglobin ABG Sodium ABG Potassium ABG Chloride ABG Glucose Oxyhemoglobin Carboxyhemoglobin Sodium Potassium Chloride Carbon Dioxide BUN 89 H Creatinine 3.6 H Glucose 116 H POC Glucose 116 H 126 H Hemoglobin A1c Lactic Acid Calcium 7.7 L Phosphorus Magnesium Ferritin Total Bilirubin AST ALT Lactate Dehydrogenase C-Reactive Protein Albumin Triglycerides Arterial Blood Glucose Arterial Blood Ionized Calcium Urine Creatinine Coronavirus (PCR) Crossmatch 03/02/21 03/02/21 03/02/21 08:35 11:35 15:17 WBC RBC 2.15 L Hgb 7.1 L Hct 20.4 L MCV 95 H MCH 33 H MCHC 35 H RDW 17.6 H Plt Count Lymph % (Auto) Lymph # (Auto) Seg Neutrophils % Seg Neuts % (Manual) Lymphocytes % (Manual) Monocytes % (Manual) Nucleated RBC % Seg Neutrophils # Seg Neutrophils # Man Lymphocytes # (Manual) Monocytes # (Manual) Eosinophils # (Manual) INR D-Dimer ABG pH POC ABG pCO2 POC ABG pO2 ABG pO2 ABG HCO3 ABG O2 Saturation ABG Base Excess ABG Hemoglobin ABG Oxyhemoglobin ABG Sodium ABG Potassium ABG Chloride ABG Glucose Oxyhemoglobin Carboxyhemoglobin Sodium Potassium Chloride Carbon Dioxide BUN Creatinine Glucose POC Glucose 117 H Hemoglobin A1c Lactic Acid Calcium Phosphorus Magnesium Ferritin Total Bilirubin AST ALT Lactate Dehydrogenase C-Reactive Protein Albumin Triglycerides Arterial Blood Glucose Arterial Blood Ionized Calcium Urine Creatinine Coronavirus (PCR) Positive A Crossmatch 03/02/21 03/02/21 03/02/21 17:50 23:26 Unknown WBC RBC Hgb Hct MCV MCH MCHC RDW Plt Count Lymph % (Auto) Lymph # (Auto) Seg Neutrophils % Seg Neuts % (Manual) Lymphocytes % (Manual) Monocytes % (Manual) Nucleated RBC % Seg Neutrophils # Seg Neutrophils # Man Lymphocytes # (Manual) Monocytes # (Manual) Eosinophils # (Manual) INR D-Dimer ABG pH 7.282 L POC ABG pCO2 POC ABG pO2 ABG pO2 150.8 H ABG HCO3 30.1 H ABG O2 Saturation ABG Base Excess ABG Hemoglobin 6.9 L ABG Oxyhemoglobin ABG Sodium ABG Potassium ABG Chloride ABG Glucose Oxyhemoglobin Carboxyhemoglobin Sodium Potassium Chloride Carbon Dioxide BUN Creatinine Glucose POC Glucose 131 H 143 H Hemoglobin A1c Lactic Acid Calcium Phosphorus Magnesium Ferritin Total Bilirubin AST ALT Lactate Dehydrogenase C-Reactive Protein Albumin Triglycerides Arterial Blood Glucose Arterial Blood Ionized Calcium Urine Creatinine Coronavirus (PCR) Crossmatch 03/03/21 03/03/21 03/03/21 03:50 05:46 17:16 WBC RBC Hgb Hct MCV MCH MCHC RDW Plt Count Lymph % (Auto) Lymph # (Auto) Seg Neutrophils % Seg Neuts % (Manual) Lymphocytes % (Manual) Monocytes % (Manual) Nucleated RBC % Seg Neutrophils # Seg Neutrophils # Man Lymphocytes # (Manual) Monocytes # (Manual) Eosinophils # (Manual) INR D-Dimer ABG pH 7.276 L POC ABG pCO2 POC ABG pO2 ABG pO2 ABG HCO3 31.7 H ABG O2 Saturation ABG Base Excess 4.3 H ABG Hemoglobin 6.7 L ABG Oxyhemoglobin ABG Sodium ABG Potassium ABG Chloride ABG Glucose Oxyhemoglobin 93.5 L Carboxyhemoglobin Sodium Potassium Chloride Carbon Dioxide BUN Creatinine Glucose POC Glucose 107 H 109 H Hemoglobin A1c Lactic Acid Calcium Phosphorus Magnesium Ferritin Total Bilirubin AST ALT Lactate Dehydrogenase C-Reactive Protein Albumin Triglycerides Arterial Blood Glucose Arterial Blood Ionized Calcium Urine Creatinine Coronavirus (PCR) Crossmatch 03/03/21 03/03/21 03/03/21 23:34 Unknown Unknown WBC 12.4 H RBC 2.26 L Hgb 6.8 L Hct 21.8 L MCV 96 H MCH MCHC 31 L RDW 18.5 H Plt Count Lymph % (Auto) Lymph # (Auto) Seg Neutrophils % Seg Neuts % (Manual) Lymphocytes % (Manual) Monocytes % (Manual) Nucleated RBC % Seg Neutrophils # Seg Neutrophils # Man Lymphocytes # (Manual) Monocytes # (Manual) Eosinophils # (Manual) INR D-Dimer ABG pH POC ABG pCO2 POC ABG pO2 ABG pO2 ABG HCO3 ABG O2 Saturation ABG Base Excess ABG Hemoglobin ABG Oxyhemoglobin ABG Sodium ABG Potassium ABG Chloride ABG Glucose Oxyhemoglobin Carboxyhemoglobin Sodium Potassium Chloride Carbon Dioxide BUN 70 H Creatinine 2.6 H Glucose 118 H POC Glucose 135 H Hemoglobin A1c Lactic Acid Calcium Phosphorus Magnesium Ferritin Total Bilirubin AST ALT Lactate Dehydrogenase C-Reactive Protein Albumin Triglycerides Arterial Blood Glucose Arterial Blood Ionized Calcium Urine Creatinine Coronavirus (PCR) Crossmatch 03/03/21 03/03/21 03/04/21 Unknown Unknown 03:15 WBC RBC Hgb Hct MCV MCH MCHC RDW Plt Count Lymph % (Auto) Lymph # (Auto) Seg Neutrophils % Seg Neuts % (Manual) Lymphocytes % (Manual) Monocytes % (Manual) Nucleated RBC % Seg Neutrophils # Seg Neutrophils # Man Lymphocytes # (Manual) Monocytes # (Manual) Eosinophils # (Manual) INR 1.15 H D-Dimer ABG pH 7.285 L POC ABG pCO2 POC ABG pO2 ABG pO2 ABG HCO3 28.8 H ABG O2 Saturation ABG Base Excess ABG Hemoglobin 8.3 L ABG Oxyhemoglobin ABG Sodium ABG Potassium ABG Chloride ABG Glucose Oxyhemoglobin 93.4 L Carboxyhemoglobin Sodium Potassium Chloride Carbon Dioxide BUN Creatinine Glucose POC Glucose Hemoglobin A1c Lactic Acid Calcium Phosphorus Magnesium Ferritin Total Bilirubin AST ALT Lactate Dehydrogenase C-Reactive Protein Albumin Triglycerides Arterial Blood Glucose Arterial Blood Ionized Calcium Urine Creatinine Coronavirus (PCR) Crossmatch See Detail 03/04/21 03/04/21 03/04/21 03:28 05:39 11:47 WBC RBC Hgb Hct MCV MCH MCHC RDW Plt Count Lymph % (Auto) Lymph # (Auto) Seg Neutrophils % Seg Neuts % (Manual) Lymphocytes % (Manual) Monocytes % (Manual) Nucleated RBC % Seg Neutrophils # Seg Neutrophils # Man Lymphocytes # (Manual) Monocytes # (Manual) Eosinophils # (Manual) INR D-Dimer ABG pH 7.285 L POC ABG pCO2 62.0 H POC ABG pO2 80.9 L ABG pO2 ABG HCO3 ABG O2 Saturation ABG Base Excess ABG Hemoglobin 8.3 L ABG Oxyhemoglobin ABG Sodium ABG Potassium ABG Chloride ABG Glucose 144 H Oxyhemoglobin Carboxyhemoglobin Sodium Potassium Chloride Carbon Dioxide BUN Creatinine Glucose POC Glucose 123 H 125 H Hemoglobin A1c Lactic Acid Calcium Phosphorus Magnesium Ferritin Total Bilirubin AST ALT Lactate Dehydrogenase C-Reactive Protein Albumin Triglycerides Arterial Blood Glucose 144 H Arterial Blood Ionized Calcium Urine Creatinine Coronavirus (PCR) Crossmatch 03/04/21 03/04/21 03/04/21 16:49 Unknown Unknown WBC 13.9 H RBC 2.58 L Hgb 7.7 L Hct 24.0 L MCV MCH MCHC RDW 20.3 H Plt Count Lymph % (Auto) Lymph # (Auto) Seg Neutrophils % Seg Neuts % (Manual) Lymphocytes % (Manual) Monocytes % (Manual) Nucleated RBC % Seg Neutrophils # Seg Neutrophils # Man Lymphocytes # (Manual) Monocytes # (Manual) Eosinophils # (Manual) INR D-Dimer ABG pH POC ABG pCO2 POC ABG pO2 ABG pO2 ABG HCO3 ABG O2 Saturation ABG Base Excess ABG Hemoglobin ABG Oxyhemoglobin ABG Sodium ABG Potassium ABG Chloride ABG Glucose Oxyhemoglobin Carboxyhemoglobin Sodium Potassium Chloride Carbon Dioxide BUN 78 H Creatinine 2.5 H Glucose 131 H POC Glucose 120 H Hemoglobin A1c Lactic Acid Calcium 8.2 L Phosphorus Magnesium Ferritin Total Bilirubin AST ALT Lactate Dehydrogenase C-Reactive Protein Albumin Triglycerides Arterial Blood Glucose Arterial Blood Ionized Calcium Urine Creatinine Coronavirus (PCR) Crossmatch 03/05/21 03/05/21 03/05/21 00:31 04:18 05:30 WBC RBC Hgb Hct MCV MCH MCHC RDW Plt Count Lymph % (Auto) Lymph # (Auto) Seg Neutrophils % Seg Neuts % (Manual) Lymphocytes % (Manual) Monocytes % (Manual) Nucleated RBC % Seg Neutrophils # Seg Neutrophils # Man Lymphocytes # (Manual) Monocytes # (Manual) Eosinophils # (Manual) INR D-Dimer ABG pH 7.160 L POC ABG pCO2 86.3 H POC ABG pO2 55.9 L ABG pO2 ABG HCO3 ABG O2 Saturation ABG Base Excess ABG Hemoglobin 8.3 L ABG Oxyhemoglobin 82.1 L ABG Sodium ABG Potassium ABG Chloride 108.0 H ABG Glucose 149 H Oxyhemoglobin Carboxyhemoglobin 1.7 H Sodium Potassium Chloride Carbon Dioxide BUN Creatinine Glucose POC Glucose 129 H 133 H Hemoglobin A1c Lactic Acid Calcium Phosphorus Magnesium Ferritin Total Bilirubin AST ALT Lactate Dehydrogenase C-Reactive Protein Albumin Triglycerides Arterial Blood Glucose 149 H Arterial Blood Ionized Calcium Urine Creatinine Coronavirus (PCR) Crossmatch 03/05/21 03/05/21 03/05/21 09:00 11:31 16:55 WBC RBC Hgb Hct MCV MCH MCHC RDW Plt Count Lymph % (Auto) Lymph # (Auto) Seg Neutrophils % Seg Neuts % (Manual) Lymphocytes % (Manual) Monocytes % (Manual) Nucleated RBC % Seg Neutrophils # Seg Neutrophils # Man Lymphocytes # (Manual) Monocytes # (Manual) Eosinophils # (Manual) INR D-Dimer ABG pH POC ABG pCO2 POC ABG pO2 ABG pO2 ABG HCO3 ABG O2 Saturation ABG Base Excess ABG Hemoglobin ABG Oxyhemoglobin ABG Sodium ABG Potassium ABG Chloride ABG Glucose Oxyhemoglobin Carboxyhemoglobin Sodium Potassium Chloride Carbon Dioxide BUN 84 H Creatinine 2.3 H Glucose 143 H POC Glucose 133 H 146 H Hemoglobin A1c Lactic Acid Calcium 8.0 L Phosphorus Magnesium Ferritin Total Bilirubin AST ALT Lactate Dehydrogenase C-Reactive Protein Albumin Triglycerides Arterial Blood Glucose Arterial Blood Ionized Calcium Urine Creatinine Coronavirus (PCR) Crossmatch 03/05/21 03/05/21 03/05/21 23:20 Unknown Unknown WBC RBC Hgb Hct MCV MCH MCHC RDW Plt Count Lymph % (Auto) Lymph # (Auto) Seg Neutrophils % Seg Neuts % (Manual) Lymphocytes % (Manual) Monocytes % (Manual) Nucleated RBC % Seg Neutrophils # Seg Neutrophils # Man Lymphocytes # (Manual) Monocytes # (Manual) Eosinophils # (Manual) INR D-Dimer ABG pH POC ABG pCO2 POC ABG pO2 ABG pO2 ABG HCO3 ABG O2 Saturation ABG Base Excess ABG Hemoglobin ABG Oxyhemoglobin ABG Sodium ABG Potassium ABG Chloride ABG Glucose Oxyhemoglobin Carboxyhemoglobin Sodium Potassium Chloride Carbon Dioxide BUN Creatinine Glucose POC Glucose 144 H Hemoglobin A1c Lactic Acid Calcium Phosphorus Magnesium Ferritin Total Bilirubin AST ALT Lactate Dehydrogenase C-Reactive Protein Albumin Triglycerides Arterial Blood Glucose Arterial Blood Ionized Calcium Urine Creatinine 65.9 H 66.1 H Coronavirus (PCR) Crossmatch 03/06/21 03/06/21 03/06/21 03:23 05:20 11:59 WBC RBC Hgb Hct MCV MCH MCHC RDW Plt Count Lymph % (Auto) Lymph # (Auto) Seg Neutrophils % Seg Neuts % (Manual) Lymphocytes % (Manual) Monocytes % (Manual) Nucleated RBC % Seg Neutrophils # Seg Neutrophils # Man Lymphocytes # (Manual) Monocytes # (Manual) Eosinophils # (Manual) INR D-Dimer ABG pH 7.239 L POC ABG pCO2 67.0 H POC ABG pO2 76.6 L ABG pO2 ABG HCO3 ABG O2 Saturation ABG Base Excess ABG Hemoglobin 8.0 L ABG Oxyhemoglobin 92.4 L ABG Sodium 145.6 H ABG Potassium ABG Chloride 108.0 H ABG Glucose 134 H Oxyhemoglobin Carboxyhemoglobin 2.1 H Sodium Potassium Chloride Carbon Dioxide BUN Creatinine Glucose POC Glucose 114 H 132 H Hemoglobin A1c Lactic Acid Calcium Phosphorus Magnesium Ferritin Total Bilirubin AST ALT Lactate Dehydrogenase C-Reactive Protein Albumin Triglycerides Arterial Blood Glucose 134 H Arterial Blood Ionized Calcium Urine Creatinine Coronavirus (PCR) Crossmatch 03/06/21 03/06/21 03/06/21 17:35 17:45 18:01 WBC RBC Hgb Hct MCV MCH MCHC RDW Plt Count Lymph % (Auto) Lymph # (Auto) Seg Neutrophils % Seg Neuts % (Manual) Lymphocytes % (Manual) Monocytes % (Manual) Nucleated RBC % Seg Neutrophils # Seg Neutrophils # Man Lymphocytes # (Manual) Monocytes # (Manual) Eosinophils # (Manual) INR D-Dimer ABG pH 7.286 L POC ABG pCO2 POC ABG pO2 ABG pO2 78.1 L ABG HCO3 33.7 H ABG O2 Saturation ABG Base Excess 5.5 H ABG Hemoglobin 10.3 L ABG Oxyhemoglobin ABG Sodium ABG Potassium ABG Chloride ABG Glucose Oxyhemoglobin 92.3 L Carboxyhemoglobin Sodium 148 H Potassium Chloride 107.1 H Carbon Dioxide 33 H BUN 91 H Creatinine 2.1 H Glucose 149 H POC Glucose 132 H Hemoglobin A1c Lactic Acid Calcium 8.2 L Phosphorus Magnesium Ferritin Total Bilirubin AST ALT Lactate Dehydrogenase C-Reactive Protein Albumin Triglycerides Arterial Blood Glucose Arterial Blood Ionized Calcium Urine Creatinine Coronavirus (PCR) Crossmatch 03/06/21 03/07/21 03/07/21 23:44 03:30 03:33 WBC RBC Hgb Hct MCV MCH MCHC RDW Plt Count Lymph % (Auto) Lymph # (Auto) Seg Neutrophils % Seg Neuts % (Manual) Lymphocytes % (Manual) Monocytes % (Manual) Nucleated RBC % Seg Neutrophils # Seg Neutrophils # Man Lymphocytes # (Manual) Monocytes # (Manual) Eosinophils # (Manual) INR D-Dimer ABG pH POC ABG pCO2 60.0 H POC ABG pO2 76.2 L ABG pO2 ABG HCO3 ABG O2 Saturation ABG Base Excess ABG Hemoglobin 7.7 L ABG Oxyhemoglobin 93.2 L ABG Sodium 148.6 H ABG Potassium ABG Chloride 112.0 H ABG Glucose 173 H Oxyhemoglobin Carboxyhemoglobin 1.7 H Sodium 147 H Potassium Chloride 107.4 H Carbon Dioxide BUN 90 H Creatinine 2.0 H Glucose 158 H POC Glucose 144 H Hemoglobin A1c Lactic Acid Calcium 8.0 L Phosphorus Magnesium Ferritin Total Bilirubin AST ALT Lactate Dehydrogenase C-Reactive Protein Albumin Triglycerides Arterial Blood Glucose 173 H Arterial Blood Ionized Calcium Urine Creatinine Coronavirus (PCR) Crossmatch 03/07/21 03/07/21 03/07/21 05:11 08:01 12:29 WBC 11.8 H RBC 2.45 L Hgb 7.2 L Hct 23.4 L MCV 96 H MCH MCHC 31 L RDW 19.7 H Plt Count Lymph % (Auto) 7.3 L Lymph # (Auto) 0.9 L Seg Neutrophils % 82.8 H Seg Neuts % (Manual) Lymphocytes % (Manual) Monocytes % (Manual) Nucleated RBC % Seg Neutrophils # 9.8 H Seg Neutrophils # Man Lymphocytes # (Manual) Monocytes # (Manual) Eosinophils # (Manual) INR D-Dimer ABG pH POC ABG pCO2 POC ABG pO2 ABG pO2 ABG HCO3 ABG O2 Saturation ABG Base Excess ABG Hemoglobin ABG Oxyhemoglobin ABG Sodium ABG Potassium ABG Chloride ABG Glucose Oxyhemoglobin Carboxyhemoglobin Sodium Potassium Chloride Carbon Dioxide BUN Creatinine Glucose POC Glucose 144 H 117 H Hemoglobin A1c Lactic Acid Calcium Phosphorus Magnesium Ferritin Total Bilirubin AST ALT Lactate Dehydrogenase C-Reactive Protein Albumin Triglycerides Arterial Blood Glucose Arterial Blood Ionized Calcium Urine Creatinine Coronavirus (PCR) Crossmatch 03/07/21 03/07/21 03/08/21 17:51 23:21 02:59 WBC RBC Hgb Hct MCV MCH MCHC RDW Plt Count Lymph % (Auto) Lymph # (Auto) Seg Neutrophils % Seg Neuts % (Manual) Lymphocytes % (Manual) Monocytes % (Manual) Nucleated RBC % Seg Neutrophils # Seg Neutrophils # Man Lymphocytes # (Manual) Monocytes # (Manual) Eosinophils # (Manual) INR D-Dimer ABG pH POC ABG pCO2 61.8 H POC ABG pO2 76.5 L ABG pO2 ABG HCO3 ABG O2 Saturation ABG Base Excess ABG Hemoglobin 8.3 L ABG Oxyhemoglobin 92.6 L ABG Sodium 150.5 H ABG Potassium ABG Chloride 114.0 H ABG Glucose 170 H Oxyhemoglobin Carboxyhemoglobin 1.9 H Sodium Potassium Chloride Carbon Dioxide BUN Creatinine Glucose POC Glucose 140 H 141 H Hemoglobin A1c Lactic Acid Calcium Phosphorus Magnesium Ferritin Total Bilirubin AST ALT Lactate Dehydrogenase C-Reactive Protein Albumin Triglycerides Arterial Blood Glucose 170 H Arterial Blood Ionized Calcium Urine Creatinine Coronavirus (PCR) Crossmatch 03/08/21 03/08/21 04:20 05:07 WBC RBC Hgb Hct MCV MCH MCHC RDW Plt Count Lymph % (Auto) Lymph # (Auto) Seg Neutrophils % Seg Neuts % (Manual) Lymphocytes % (Manual) Monocytes % (Manual) Nucleated RBC % Seg Neutrophils # Seg Neutrophils # Man Lymphocytes # (Manual) Monocytes # (Manual) Eosinophils # (Manual) INR D-Dimer ABG pH POC ABG pCO2 POC ABG pO2 ABG pO2 ABG HCO3 ABG O2 Saturation ABG Base Excess ABG Hemoglobin ABG Oxyhemoglobin ABG Sodium ABG Potassium ABG Chloride ABG Glucose Oxyhemoglobin Carboxyhemoglobin Sodium 151 H Potassium Chloride 112.1 H Carbon Dioxide 31 H BUN 90 H Creatinine 1.7 H Glucose 166 H POC Glucose 149 H Hemoglobin A1c Lactic Acid Calcium 7.9 L Phosphorus Magnesium Ferritin Total Bilirubin AST ALT Lactate Dehydrogenase C-Reactive Protein Albumin Triglycerides Arterial Blood Glucose Arterial Blood Ionized Calcium Urine Creatinine Coronavirus (PCR) Crossmatch
--- NOTE | 2021-03-08 11:30 | XRay Report ---
CHEST 1 VIEW 03/08/2021 9:35 AM INDICATION / CLINICAL INFORMATION: Worsening Hypoxemia. COMPARISON: 03/04/2021 FINDINGS: SUPPORT DEVICES: Stable, satisfactory device positioning. HEART / MEDIASTINUM: Stable. LUNGS / PLEURA: Diffuse patchy and confluent pulmonary opacities greatest in the right lower lung. No pneumothorax. ADDITIONAL FINDINGS: No significant additional findings. IMPRESSION: 1. No significant change. Signer Name: John Willson MD Signed: 03/08/2021 11:26 AM Workstation Name: [id number]
--- NOTE | 2021-03-08 11:47 | Progress Note ---
Assessment and Plan Assessment and plan: This is a 60-year-old male with diabetes mellitus, hypertension, hyperlipidemia, chronic renal insufficiency who was admitted on 01/23 as a COVID-19 PUI with Sepsis, COVID-19 pneumonia, coag negative staph bacteremia, acute hypoxic respiratory failure, and acute kidney injury. Sepsis COVID-19 pneumonia Coag-neg Staph bacteremia Acute hypoxic respiratory failure Acute kidney injury, HD initiated 02/03 Hypernatremia Anemia Diabetes mellitus Hypertension Hyperlipidemia Chronic renal insufficiency Elevated D-dimer Penile ulceration Sacral wound -CCM, nephrology, infectious disease, GI , vascular surgery, surgery, urology, neurology consulted, appreciate recommendations -s/p Antibiotic therapy, remdesivir, Steroid therapy -COVID-19 PCR positive, Pneumonia on CXR -Mechanical ventilation, wean as tolerated -VAP bundle -HD per nephrology, on hold given improvement 03/06 -S/p 5 units PRBC during stay -Trend BMP, CBC, COVID-19 inflammatory markers -Bilateral lower extremity and upper extremity Doppler ultrasound negative for DVT/SVT -SSI and Long-acting insulin -Accu-Cheks every 6 while on tube feedings -Hold home antihypertensive regimen and resume when appropriate -S/p vasopressor support -Blood pressure monitoring per protocol -S/p NaHCO3 gtt -02/17 CT head showed no acute intracranial abnormality, paranasal sinus disease -Bowel regimen, now on hold -02/24 EEG finding consistent with encephalopathy and/or drug effect, possibility of toxic metabolic etiology cannot be excluded, possibility of structural lesion on the left side cannot be excluded given left being slightly slower than the right. -Neosporin twice daily to penile shaft ulcer -01/23, 02/18, 03/02 COVID-19 PCR positive -Permcath placement pending -03/06 s/p bedside debridement with surgery -Wound care per nursing DVT/GI prophylaxis: SCDs to bilateral lower extremities while in bed, PPI, heparin subq Dispo: ICU The high probability of a clinically significant, sudden or life threatening deterioration of the [multi] system(s) required my full and direct attention, intervention and personal management. The aggregate critical care time was [35] minutes. This time is in addition to time spent performing reported procedures but includes the following: [x] Data Review and interpretation [x] Patient assessment and monitoring of vital signs [x] Documentation [x] Medication orders and management History Interval history: This is a 60-year-old male with diabetes mellitus, hypertension, hyperlipidemia, chronic renal insufficiency presents to the emergency department on 01/23 with shortness of breath, fevers chills, loss of smell and taste and body aches for the past 3 days via EMS. Per EMS patient's oxygen saturation on room air was 50% and after being placed on nonrebreather it increased 75%. Upon arrival to the emergency department patient was being bagged by EMS. In the emergency room patient was intubated due to severe hypoxia, increased work of breathing and l ethargy. Patient was sedated on propofol and fentanyl. Patient presented with fever, tachycardia, tachypnea and acute hypoxic respiratory failure with PNA on CXR meeting Sepsis criteria. Lab work in the emergency department revealed hyponatremia, hypokalemia, hypochloremia, elevated CR/BUN and CXR showed bilateral pneumonia. Patient was admitted to the hospital service as a COVID-19 PUI with consults to infectious disease, nephrology and critical care medicine. 01/24/2021: Patient is intubated and sedated, patient is positive for COVID-19 infection. ID was consulted and put on dexamethasone and remdesivir. Patient has DEISI and nephrology is following. Creatinine stable, patient is urinating. Discussed with nephrology and he is okay with remdesivir. Pulmonary critical care is following for his vent setting. PEEP of 8 and FiO2 of 85%. Patient was alert and off sedatives. 01/25/2021; patient is intubated and on mechanical ventilation. Continue with treatment of Covid. Nephrology and ID is following. Pulmonary is following for vent management 01/26: Remains on mechanical ventilation and [facility] increased his PEEP. [facility] has ordered Precedex for sedation. Possibly need to prone this p.m. No acute events reported overnight. This morning his D-dimer is greater than 10,000 and we have started him on Lovenox 120 mg daily. Nutrition has been consulted for initiation of tube feedings. Patient remains sedated on propofol 40 and fentanyl for the time my examination this morning. 01/27: Continue Lovenox, remdesivir and empiric antibiotics. Patient had a T-max of 101 overnight. The time of examination patient is on CMV 500/18/14/0.61. Kidney function slightly worsened. Sedated on fentanyl ground-level fall and Precedex. Nephrology has increased IV fluids to 100 ml/hr. Continue to trend BMP and CBC. Sedation vacation attempt by RN this AM. 01/28: Patient completed antibiotics today [facility] will paralyze patient and increase sedation. PICC line ordered for possible vasopressor therapy need. Patient's D-dimer remains greater than 10,000 and he still has hyperchloremia. Patient's kidney function has improved today. May need to prone the patient if no improvement in oxygenation is noted in the next 24 hours. The time of my examination patient is sedated with propofol, fentanyl and Precedex and is on assist control 500/18/16/0.80 hypoxic on ABG on 60% FiO2. 01/29: Patient was started on Nimbex yesterday and his ABG this morning showed respiratory acidosis with hypercapnia and his respiratory rate was increased. We will obtain a repeat ABG this afternoon. This morning patient is hypernatremic, hyperkalemic and hyperchloremic. His potassium has been corre cted with the management and will obtain repeat BMP tomorrow. His kidney functions have remained stable and we will await nephrology's input. No acute events reported overnight. This morning the time my examination patient sedated with propofol, Precedex and fentanyl and paralyzed with Nimbex. He is on assist control 500/24/16 0.80. 01/30: This morning patient is hypokalemic again and was given Kayexalate. Patient has hypernatremia and hyper chloremia and his renal function is slightly worse after receiving Lasix yesterday. His D-dimer remains greater than 10,000 and he is still on a paralytic. Patient is sedated on Precedex, fentanyl, propofol. Mechanical ventilation settings seven-point //28. [facility] has decided to continue paralytics for 48 more hours and will attempt proning the patient. Increased free water flushes 300 cc every 4 hours. Patient states has restarted his antibiotics cefepime and vancomycin and recultured. 01/31/21 Hyperkalemia, Treated 02/01/21 Hyperkalemia, Treated 02/02: Patient's kidney function continues to worsen and a stat BMP this morning shows BUN/creatinine 20/6.1 and he remains hypocalcemic and hypernatremic, hypokalemic and hypochloremic. Patient received 2 g of calcium gluconate and Kayexalate and his repeat potassium was 4.3 this afternoon. He remains antibiotic therapy and steroids. Nephrology has placed the patient on bicarb drip given metabolic acidosis and has decided to hold off hemodialysis till tomorrow.The time my examination patient is sedated on fentanyl, Precedex and on assist control 500/20/12/0.70. s/p paralytic. 02/03: Today patient's ABG shows respiratory acidosis however it is improving, hypernatremia, hyperchloremia, metabolic acidosis on BMP, worsening kidney function BUN/creatinine 130/9.2 with hyperphosphatemia. Patient received a Vas- Cath to his right IJ for initiation of dialysis. At the time of my examination patient remains sedated on fentanyl, propofol and Precedex with vasopressor support with Levophed at 2. 02/04: At the time of examination patient was on assist control tidal volume 500, rate 40, PEEP of 12, FiO2 85%. Patient had a T-max of 100.9 and infectious disease has stopped his vancomycin given negative MRSA. This afternoon patient respiked his temperature and was pancultured again. Patient was started on hemodialysis yesterday and will receive HD again today. Patient is sedated on Precedex, propofol, fentanyl and remains on Levophed. He is on assist control tidal volume 500, rate of 30, PEEP of 12, FiO2 of 85%. Patient still has some respiratory acidosis however his hypernatremia and hyperchloremia have improved and his metabolic acidosis has resolved. Patient will receive hemodialysis today 02/05: Patient continues to have low-grade fever temp this morning time examin ation he was on assist control tidal volume 500, and sedated on propofol/fentanyl/Precedex and is on Levophed. Hemodialysis per nephrology. Antibiotics per ID. Patient's blood culture from 02/04 grew gram-positive cocci in clusters in 1/2 bottles and he was started on vancomycin. 02/06: Patients ABG showed respiratory acidosis and the tracings were changed however a repeat ABG showed showed acidosis.[facility] will start a bicarb drip after giving 2 amps of bicarb push. Yesterday patient blood cultures grew gram- positive cocci and he was started on vancomycin. At the time my examination patient was on assist control tidal volume 550, rate 34, PEEP 16, FiO2 90% and sedated on fentanyl, Precedex, propofol elevated pressure support with Levophed. Bilateral lower extremity Doppler ultrasounds done yesterday showed no evidence of DVT/SVT. 02/07/2021; patient is still on the vent with PEEP of 16 and FiO2 of 90%, sedated with fentanyl Precedex and propofol. Patient still requiring Levophed. Cammy padilla was sedated yesterday and was given bicarb push. Blood culture grew gram- positive cocci in clusters and he is on vancomycin, will follow identification. 02/08/2021;patient is still on the vent with PEEP of 16 and FiO2 of 90%, sedated with fentanyl Precedex and propofol. Patient still requiring Levophed. Patient was sedated yesterday and was given bicarb push. Blood culture grew gram-posit mercedes cocci in clusters and he is on vancomycin, will follow identification. Patient is currently on dialysis. Patient is anemic transfuse if hemoglobin is below 7. 02/09: This morning patient has slight hypokalemia, hypochorlemia, hyponatremia and metabolic alkalosis. [facility] will continue bicarb gtt given that the patient does not have HD access at this time. We will replete the potassium and recheck BMP in the AM. We will type and cross in anticipation of PRBC transfusion. This morning he is sedated on Ativan, fentayl, and precedex. Will obtain a triglyceride level today in hopes to resume propofol. Patient is alkalotic and BMP however we will continue with bicarb drip per [facility] given that the patient does not have any access for hemodialysis. Anticipate replacing hemodialysis catheter tomorrow or Tuesday. The time my examination he is on AC TV 550, Rate 34, PeeP 16, FiO2 .65. 02/10: A.m. labs still pending, [facility] plans to replace HD catheter tomorrow as the patient is still febrile however his fever curve is trending down, remains on a bicarb drip and on vancomycin. Today at the time my examination patient was sedated on Precedex, Ativan and fentanyl and he is on assist control tidal 11/04/1951, rate 34, PEEP 16, FiO2 65%. Overnight patient was hypotensive and received 1 dose of midodrine. 02/11: Patient is still having low-grade temperatures that we will obtain a bilateral lower upper extremity venous Doppler ultrasound given that his repeat cultures have been negative so far. Patient received a Vas-Cath today for hemodialysis. The time examination patient is on assist control tidal volume 550, rate of 34, PEEP of 16 and FiO2 of 75%. Patient was hypokalemic and anemic yesterday which were both repleted with potassium and 1 unit PRBC. 02/12: 02/12: Patient had a 12-second run of V. tach today, his potassium and magnesium were low which was repleted. Renal adjusted potassium bath. We will obtain a triglyceride level in hopes to restarting to prevent as needed. This morning at the time my examination patient was sedated on fentanyl, Ativan and Precedex and remained on a bicarb drip. He was on assist control tidal volume 550, rate 34, PEEP 16, FiO2 85%. We will obtain a occult stool given no evident source of bleeding and need for transfusion. Anemia possibly due to hemodialysis. 02/13: Patient's T-max was 100.7, remains on fentanyl, Ativan, Precedex and bicarb drip this morning at some examination on assist control tidal volume 550, rate 34, PEEP 16 and FiO2 85%. On the labs this morning is slightly hypokalemic and remains metabolic alkalotic on BMP. His occult was positive. His Lovenox and consult GI. Patient received hemodialysis today. 02/14: cont PPI, GI recommended to scope now, monitor clinically, tolerating TF, remains intubated. Hb 6.9 today - transfuse another unit. very poor prognosis. 02/15: H&H appears to be stable following 1 unit of transfusion yesterday. Continue to hold heparin and aspirin products. Continue to monitor clinically. Poor prognosis. Wean off from vent as tolerated. 02/16: Infectious disease has signed off, his Ativan drip was discontinued and to prevent drip will be started when patient needs it. T-max 100.6 yesterday afternoon. He received hemodialysis today and at the time my examination was still on mechanical ventilation assist control tidal volume 550, rate 34, PEEP 16 on 70% FiO2. Patient was sedated on fentanyl dexamethasone and Ativan. No acute events reported overnight. 02/17: This morning patient was scheduled to get 2 units PRBC however his repeat H/H after 1 unit PRBC was 7.6/22.8 and the width of the second unit PRBC. This morning patient was sedated on fentanyl, propofol, Precedex and on assist control tolerated by 50, rate 34, PEEP of 16, FiO2 35%. Wound care was consulted today for his upper lip wound. Nephrology continues to withhold dialysis. No acute events reported overnight. Dr. Adkins was unable to contact family for updates. 02/18: Family updated by Dr. Adkins and Dr. Reddy. Patient had a hemodialysis today. The time my examination patient was on assist control tidal volume 550, rate 34, PEEP 16 and FiO2 35%. Overnight patient had a CT head and he was placed on 3% FiO2 and took "a long time to recover" per RN report. 02/19: Patient's D-dimer is trending up therefore he was started on prophylactic anticoagulation, no bowel movement for several days so he was started on mag citrate today. The time examination patient is sedated on Precedex 1.2, fentanyl 3, propofol 20 on assist control tidal volume 550, rate 34, PEEP 16, 80% FiO2 and on his ABG his PaO2 is 106. RT will try to wean as tolerated. Repeat COVID-19 PCR today was positive.Dr. Adkins updated the family today. 02/20: Patient received hemodialysis today. In the time my examination patient was sedated on Precedex, fentanyl, propofol and on assist control tidal line 550, rate 34, PEEP of 16 and 75% FiO2. Patient had a bowel movement yesterday. 02/21 no new concerns at this time afebrile Hospital course remains uncomplicated. 02/22. Hospital course complicated by an episode of ectopy over the p.m. Patient required Levophed for blood pressure control. Remains intubated sedated. Tolerated hemodialysis yesterday. 02/23: At the time my examination patient is on assist control tidal volume 550, rate 34, PEEP 16, FiO2 70% and is not sedated. Patient does not follow commands however his eyes open spontaneously and he does not track/focus. 02/24: Neurology consulted, EEG pending. No acute events reported overnight. Patient remains on hyperventilation totaling 550, rate 34, PEEP of 16 on 70% FiO2. Patient received hemodialysis yesterday. 02/25: EEG from 02/24 is suggestive of encephalopathy (toxic metabolic etiology cannot be excluded). This afternoon his peak pressures and and mean airway pressure is elevated so we obtained a CXR and ABG. Results were called to Dr. Masters. Patient received 2 mg of Versed was placed back on his sedation with fentanyl and Precedex. 02/26: Patient is on pressure ventilation FiO2 70%, Pressure inspiration 25, rate 34, PEEP 10 and sedated on fentanyl at 2mcgs and Precedex at 0.2. We will obtain a cxr for evaluation. Patient seems to be much more comfortable today. 02/27: CXr unchanged, at the time of my examination patient is on pressure control ventilation FiO2 70%, pressure support 26, rate 34 n.p.o. for 10 and sedated on fentanyl at 2 and Precedex at 0.1. His latest ABG 7.3, CO2 49, PO2 111, base excess 24. Patient is to receive hemodialysis today. No acute events reported overnight. Patient still not following commands. 02/28: Continue mechanical ventilation per pulmonary recommendations. Patient currently in AC mode ventilation rate 34, FiO2 70%, PEEP 15. 02/24 EEG finding consistent with encephalopathy and/or drug effect, possibility of toxic metabolic etiology cannot be excluded, possibility of structural lesion on the left side cannot be excluded given left being slightly slower than the right. Continue hemodialysis per nephrology. Currently with sedation of fentanyl and P recedex. Pulmonary plans for trach when ventilator settings allow. 03/01: Patient remains on mechanical ventilation AC mode, FiO2 70%, PEEP of 10. Hemodialysis initiated on 02/03/2021. Continue per nephrology. Patient will need tracheostomy once ventilator settings allow. Continue supportive care with tube feedings. Aspiration precautions. Patient appears to have penile ulceration and purulence. Consult urology for further evaluation. Prognosis remains guarded. 03/02: Tentative plan to place permacath tomorrow, patient will be n.p.o. after midnight and repeat COVID-19 PCR was ordered. Urology was consulted for a possible penile fistula. Patient received hemodialysis today. Today at the time of examination patient was on pressure control ventilation with a PEEP of 10 and FiO2 of 60 sedated on fentanyl and Precedex. 03/03: Patient noted to be anemic and ordered 1 unit of PRBC to be transfused, [facility] thinks patient has suffered from oxygen toxicity from prolonged time on high levels of oxygen (greater than 60%) for several weeks. The time my examination patient was on volume control ventilation and he remains off sedation. 03/04: Patient H/H today and 7.7/1:24 unit PRBC yesterday. Patient remains on pressure control ventilation with a pressure support of 26, FiO2 55, rate of 24 and PEEP of 10. His sedation was restarted yesterday for increase WOB and tachypnea. Patient is sedated on fentanyl and dexamethasone. We will continue current management and possibly obtain a CT head on Tuesday if no improvement in mental status. 03/05: Infectious disease has stated that the patient is noninfectious as per PermCath procedure. However patient is renal function is improving and nephrology has opted to place PermCath on Tuesday if HD is still indicated. Patient was given mag citrate today for constipation and sodium bicarbonate push. Today surgery was consulted for possible debridement of sacral wound. 03/06: Patient is sedated on fentanyl and dexamethasone on pressure control ventilation FiO2 55%, pressure support 26, rate 40 and PEEP of 10 at the time my examination. And he was switched to assist control by [facility]. Patient continues to have low-grade fevers which may be multifactorial. Given that creatinine clearance was 26 and urine output is improving nephrology has decided to hold HD for now. General surgery has debrided the sacaral wound today. Will attempt to obtain midline or PIV in order to remove CVL BILLIE. 03/07: Alert, examination patient was sedated on fentanyl and dexamethasone on assist control tidal volume 550, rate 26, PEEP of 14 and 55% FiO2. Patient renal function has remained stable and we will monitor him off of hemodialysis. RN was unable to obtain a midline or PIV. Per [facility] CVL remain and possible small clot in the left IJ visualized with ultrasound probe. Will monitor fever curve. 03/08: Overnight FiO2 requirements increased, UOP remains good, decrease in Cr, increase in Na. Spoke to bedside RN about FWF. [facility] changed patient to PRVC. Hospitalist Physical - Constitutional Vitals: Temp Pulse Resp BP Pulse Ox 98.0 F 94 H 29 H 116/64 92 03/08/21 08:00 03/08/21 11:30 03/08/21 11:30 03/08/21 11:30 03/08/21 11:30 General appearance: Present: no acute distress, obese, other (on mechanical ventilation, sedated) - EENT Eyes: Present: PERRL ENT: poor dentition - Neck Neck: Absent: masses or JVD, cervical LAD - Respiratory Respiratory effort: normal Respiratory: bilateral: diminished - Cardiovascular Rhythm: regular Heart Sounds: Present: S1 & S2. Absent: systolic murmur, diastolic murmur - Extremities Extremities: no ischemia, pulses intact, pulses symmetrical, normal temperature, normal color Extremity abnormal: edema Peripheral Pulses: within normal limits - Abdominal General gastrointestinal: soft, non-tender, non-distended, normal bowel sounds - Integumentary Integumentary: Present: warm, dry - Psychiatric Psychiatric: other (sedated) - Neurologic Neurologic: other (sedated) - Allied Health Allied health notes reviewed: nursing, RT HEART Score - HEART Score Risk factors: 1-2 risk factors Troponin: < normal limit - Critical Actions Critical Actions: 0-3 pts:0.9-1.7%risk of adverse cardiac event.Candidate for discharge Results - Labs CBC & Chem 7: 03/07/21 08:01 03/08/21 04:20 Labs: Laboratory Last Values WBC 11.8 K/mm3 (4.5-11.0) H 03/07/21 08:01 RBC 2.45 M/mm3 (3.65-5.03) L 03/07/21 08:01 Hgb 7.2 gm/dl (11.8-15.2) L 03/07/21 08:01 Hct 23.4 % (35.5-45.6) L 03/07/21 08:01 MCV 96 fl (84-94) H 03/07/21 08:01 MCH 29 pg (28-32) 03/07/21 08:01 MCHC 31 % (32-34) L 03/07/21 08:01 RDW 19.7 % (13.2-15.2) H 03/07/21 08:01 Plt Count 308 K/mm3 (140-440) 03/07/21 08:01 Lymph % (Auto) 7.3 % (13.4-35.0) L 03/07/21 08:01 Bond % (Auto) 6.9 % (0.0-7.3) 03/07/21 08:01 Eos % (Auto) 2.2 % (0.0-4.3) 03/07/21 08:01 Baso % (Auto) 0.8 % (0.0-1.8) 03/07/21 08:01 Lymph # (Auto) 0.9 K/mm3 (1.2-5.4) L 03/07/21 08:01 Bond # (Auto) 0.8 K/mm3 (0.0-0.8) 03/07/21 08:01 Eos # (Auto) 0.3 K/mm3 (0.0-0.4) 03/07/21 08:01 Baso # (Auto) 0.1 K/mm3 (0.0-0.1) 03/07/21 08:01 Add Manual Diff Complete 02/24/21 04:25 Total Counted 100 02/24/21 04:25 Seg Neutrophils % 82.8 % (40.0-70.0) H 03/07/21 08:01 Seg Neuts % (Manual) 82.0 % (40.0-70.0) H 02/24/21 04:25 Band Neutrophils % 2.0 % 02/16/21 Unknown Lymphocytes % (Manual) 3.0 % (13.4-35.0) L 02/24/21 04:25 Reactive Lymphs % (Man) 1.0 % 01/27/21 05:29 Monocytes % (Manual) 11.0 % (0.0-7.3) H 02/24/21 04:25 Eosinophils % (Manual) 1.0 % (0.0-4.3) 02/24/21 04:25 Basophils % (Manual) 1.0 % (0.0-1.8) 02/24/21 04:25 Metamyelocytes % 2.0 % 02/24/21 04:25 Nucleated RBC % Not Reportable 02/24/21 04:25 Seg Neutrophils # 9.8 K/mm3 (1.8-7.7) H 03/07/21 08:01 Seg Neutrophils # Man 9.4 K/mm3 (1.8-7.7) H 02/24/21 04:25 Band Neutrophils # 0.0 K/mm3 02/24/21 04:25 Lymphocytes # (Manual) 0.3 K/mm3 (1.2-5.4) L 02/24/21 04:25 Abs React Lymphs (Man) 0.0 K/mm3 02/24/21 04:25 Monocytes # (Manual) 1.3 K/mm3 (0.0-0.8) H 02/24/21 04:25 Eosinophils # (Manual) 0.1 K/mm3 (0.0-0.4) 02/24/21 04:25 Basophils # (Manual) 0.1 K/mm3 (0.0-0.1) 02/24/21 04:25 Metamyelocytes # 0.2 K/mm3 02/24/21 04:25 Myelocytes # 0.0 K/mm3 02/24/21 04:25 Promyelocytes # 0.0 K/mm3 02/24/21 04:25 Blast Cells # 0.0 K/mm3 02/24/21 04:25 WBC Morphology Not Reportable 02/24/21 04:25 Hypersegmented Neuts Not Reportable 02/24/21 04:25 Hyposegmented Neuts Not Reportable 02/24/21 04:25 Hypogranular Neuts Not Reportable 02/24/21 04:25 Smudge Cells Not Reportable 02/24/21 04:25 Toxic Granulation Not Reportable 02/24/21 04:25 Toxic Vacuolation Not Reportable 02/24/21 04:25 Dohle Bodies Not Reportable 02/24/21 04:25 Pelger-Huet Anomaly Not Reportable 02/24/21 04:25 Fátima Rods Not Reportable 02/24/21 04:25 Platelet Estimate Consistent w auto 02/24/21 04:25 Clumped Platelets Not Reportable 02/24/21 04:25 Plt Clumps, EDTA Not Reportable 02/24/21 04:25 Large Platelets Not Reportable 02/24/21 04:25 Giant Platelets Not Reportable 02/24/21 04:25 Platelet Satelliting Not Reportable 02/24/21 04:25 Plt Morphology Comment Not Reportable 02/24/21 04:25 RBC Morphology Not Reportable 02/24/21 04:25 Dimorphic RBCs Not Reportable 02/24/21 04:25 Polychromasia Few 02/24/21 04:25 Hypochromasia Not Reportable 02/24/21 04:25 Poikilocytosis Not Reportable 02/24/21 04:25 Anisocytosis 1+ 02/24/21 04:25 Microcytosis Not Reportable 02/24/21 04:25 Macrocytosis Not Reportable 02/24/21 04:25 Spherocytes Not Reportable 02/24/21 04:25 Pappenheimer Bodies Not Reportable 02/24/21 04:25 Sickle Cells Not Reportable 02/24/21 04:25 Target Cells Not Reportable 02/24/21 04:25 Tear Drop Cells Not Reportable 02/24/21 04:25 Ovalocytes Not Reportable 02/24/21 04:25 Helmet Cells Not Reportable 02/24/21 04:25 [place] Bodies Not Reportable 02/24/21 04:25 Fossil Rings Not Reportable 02/24/21 04:25 Ludmila Cells Not Reportable 02/24/21 04:25 Bite Cells Not Reportable 02/24/21 04:25 Crenated Cell Not Reportable 02/24/21 04:25 Elliptocytes Not Reportable 02/24/21 04:25 Acanthocytes (Spur) Not Reportable 02/24/21 04:25 Rouleaux Not Reportable 02/24/21 04:25 Hemoglobin C Crystals Not Reportable 02/24/21 04:25 Schistocytes Not Reportable 02/24/21 04:25 Malaria parasites Not Reportable 02/24/21 04:25 Aquiles Bodies Not Reportable 02/24/21 04:25 Hem Pathologist Commnt No 02/24/21 04:25 PT 14.6 Sec. (12.2-14.9) 03/03/21 Unknown INR 1.15 (0.87-1.13) H 03/03/21 Unknown D-Dimer 6536.84 ng/mlDDU (0-234) H 02/25/21 09:03 ABG pH 7.328 (7.320-7.450) 03/08/21 02:59 POC ABG pCO2 61.8 mmHg (32.0-48.0) H 03/08/21 02:59 ABG pCO2 72.4 mm Hg 03/06/21 17:45 POC ABG pO2 76.5 mmHg (83-108) L 03/08/21 02:59 ABG pO2 78.1 mm Hg (80.0-90.0) L 03/06/21 17:45 POC ABG HCO3 31.7 03/08/21 02:59 ABG HCO3 33.7 mmol/L (20.0-26.0) H 03/06/21 17:45 ABG O2 Saturation 94.5 (0-100) 03/08/21 02:59 ABG O2 Content 13.5 (0.0-44) 03/06/21 17:45 POC ABG Base Excess 4.9 03/08/21 02:59 ABG Base Excess 5.5 mmol/L (-2.0-3.0) H 03/06/21 17:45 ABG Hemoglobin 8.3 (12.0-17.5) L 03/08/21 02:59 ABG Oxyhemoglobin 92.6 (94-98) L 03/08/21 02:59 ABG Carboxyhemoglobin 2.3 % (0.0-5.0) 03/06/21 17:45 ABG Methemoglobin 0.1 (0.0-1.5) 03/08/21 02:59 ABG Sodium 150.5 mmol/L (136.0-145.0) H 03/08/21 02:59 ABG Potassium 3.5 mmol/L (3.40-4.50) 03/08/21 02:59 ABG Chloride 114.0 mmol/L (98-107) H 03/08/21 02:59 ABG Glucose 170 mg/dL (65-95) H 03/08/21 02:59 Oxyhemoglobin 92.3 % (95.0-99.0) L 03/06/21 17:45 Carboxyhemoglobin 1.9 (0.5-1.5) H 03/08/21 02:59 FiO2 55 % 03/06/21 17:45 FiO2 % 70.0 03/08/21 02:59 Sodium 151 mmol/L (137-145) H 03/08/21 04:20 Potassium 3.9 mmol/L (3.6-5.0) 03/08/21 04:20 Chloride 112.1 mmol/L (98-107) H 03/08/21 04:20 Carbon Dioxide 31 mmol/L (22-30) H 03/08/21 04:20 Anion Gap 12 mmol/L 03/08/21 04:20 BUN 90 mg/dL (9-20) H 03/08/21 04:20 Creatinine 1.7 mg/dL (0.8-1.3) H 03/08/21 04:20 Estimated GFR 50 ml/min 03/08/21 04:20 BUN/Creatinine Ratio 53 % 03/08/21 04:20 Glucose 166 mg/dL (75-100) H 03/08/21 04:20 POC Glucose 149 mg/dL (70-105) H 03/08/21 05:07 Hemoglobin A1c 6.3 % (4-6) H 02/02/21 16:00 Lactic Acid 1.90 mmol/L (0.7-2.0) 01/24/21 14:38 Calcium 7.9 mg/dL (8.4-10.2) L 03/08/21 04:20 Phosphorus 7.90 mg/dL (2.5-4.5) H 02/21/21 16:35 Magnesium 2.60 mg/dL (1.7-2.3) H 02/21/21 16:35 Ferritin 867.8 ng/mL (30.0-300.0) H 02/26/21 05:48 Total Bilirubin 1.50 mg/dL (0.1-1.2) H 01/26/21 05:47 AST 37 units/L (5-40) 01/26/21 05:47 ALT 29 units/L (7-56) 01/26/21 05:47 Alkaline Phosphatase 70 units/L (35-129) 01/26/21 05:47 Lactate Dehydrogenase 345 units/L (91-180) H 02/19/21 05:45 C-Reactive Protein 5.90 mg/dL (0.00-1.30) H 02/26/21 05:48 Total Protein 7.2 g/dL (6.3-8.2) 01/26/21 05:47 Albumin 2.2 g/dL (3.9-5) L 01/26/21 05:47 Albumin/Globulin Ratio 0.4 % 01/26/21 05:47 Triglycerides 195 mg/dL (2-149) H 02/19/21 05:45 Procalcitonin 18.94 ng/mL (<0.15) 02/16/21 17:09 Arterial Blood Glucose 170 mg/dL (65-95) H 03/08/21 02:59 Arterial Blood Ionized Calcium 4.6 mg/dL (4.6-5.3) 03/08/21 02:59 Urine Color Nehal (Yellow) 01/22/21 22:39 Urine Turbidity Cloudy (Clear) 01/22/21 22:39 Urine pH 5.0 (5.0-7.0) 01/22/21 22:39 Ur Specific [place] 1.017 (1.003-1.030) 01/22/21 22:39 Urine Protein 100 mg/dl mg/dL (Negative) 01/22/21 22:39 Urine Glucose (UA) Neg mg/dL (Negative) 01/22/21 22:39 Urine Ketones Neg mg/dL (Negative) 01/22/21 22:39 Urine Blood Mod (Negative) 01/22/21 22:39 Urine Nitrite Neg (Negative) 01/22/21 22:39 Urine Bilirubin Neg (Negative) 01/22/21 22:39 Urine Urobilinogen 2.0 mg/dL (<2.0) 01/22/21 22:39 Ur Leukocyte Esterase Mod (Negative) 01/22/21 22:39 Urine WBC (Auto) < 1.0 /HPF (0.0-6.0) 01/22/21 22:39 Urine RBC (Auto) < 1.0 /HPF (0.0-6.0) 01/22/21 22:39 U Epithel Cells (Auto) < 1.0 /HPF (0-13.0) 01/22/21 22:39 Urine Osmolality 416 Mosm/kg 01/30/21 12:15 Urine Total Volume 1800 ml 03/05/21 Unknown Urine Total Volume 1800 ml 03/05/21 Unknown Urine Creatinine 65.9 mg/dL (0.1-20.0) H 03/05/21 Unknown Urine Creatinine 66.1 mg/dL (0.1-20.0) H 03/05/21 Unknown Ur Creatinine 24 Hour 1.2 (0.8-2.8) 03/05/21 Unknown Height (in) 68.0 inches 03/05/21 Unknown Weight (lb) 283.3 lbs 03/05/21 Unknown Creatinine Clearance 26 03/05/21 Unknown Urine Sodium 28 mmol/L 01/22/21 22:39 Nasal Screen MRSA (PCR) Negative (Negative) 02/02/21 13:20 Random Vancomycin 13.7 ug/mL (0-40.0) 02/07/21 10:40 Coronavirus (PCR) Positive (Negative) A 03/02/21 08:35 Hepatitis A IgM Ab Non-reactive (NonReactive) 02/03/21 Unknown Hep Bs Antigen Non-reactive (Negative) 02/03/21 Unknown Hep B Core IgM Ab Non-reactive (NonReactive) 02/03/21 Unknown Hepatitis C Antibody Non-reactive (NonReactive) 02/03/21 Unknown Blood Type B POSITIVE 03/03/21 Unknown Antibody Screen Negative 03/03/21 Unknown Crossmatch See Detail 03/03/21 Unknown Black/IV: Voiding Method Indwelling Catheter Active Medications - Current Medications Current Medications: Generic Name Dose Route Start Last Admin Trade Name Freq PRN Reason Stop Dose Admin Acetaminophen 650 mg 01/24/21 12:58 03/07/21 22:17 Acetaminophen 325 Mg/10.15 Ml Oral Liqd Unit Dose FEEDTUBE 650 mg Q6H PRN Administration Pain, Mild (1-3) Lipase/Protease/Amylase 1 each 01/26/21 14:25 Lipase 10,500/Protease 25,000/Amylase 43,750 (Units) Dr Cap FEEDTUBE PRN PRN For Clogged Feeding Tube Dextrose 50 ml 01/27/21 07:24 Dextrose 50% In Water (25gm) 50 Ml Syringe IV Q30MIN PRN Hypoglycemia Protocol Fentanyl 50 mcg 01/22/21 22:39 02/25/21 10:25 Fentanyl 100 Mcg/2 Ml Inj IV 50 mcg Q10MIN PRN Administration ANALGESIA Heparin Sodium (Porcine) 2,000 unit 02/11/21 09:38 02/21/21 21:25 Heparin 10,000 Units/10 Ml Vial IV 2,000 unit SAGRARIO PRN Administration hemodialysis Heparin Sodium (Porcine) 5,000 unit 02/19/21 14:00 03/08/21 05:18 Heparin 5,000 Unit/1 Ml Vial SUB-Q 5,000 unit Q8HR CECE Administration Fentanyl Citrate 2,000 mcg in 100 mls @ 6.124 mls/hr 01/22/21 23:00 03/08/21 09:52 Fentanyl Drip Premix IV 3 mcg/kg/hr TITR CECE 18.371 mls/hr Administration Protocol 1 MCG/KG/HR Propofol 1,000 mg in 100 mls @ 3.674 mls/hr 01/22/21 23:45 02/21/21 08:30 Diprivan 10 Mg/Ml IV 0 mcg/kg/min TITR CECE 0 mls/hr Titration Protocol 5 MCG/KG/MIN Norepinephrine 4 mg in 250 mls @ 7.5 mls/hr 01/28/21 14:00 02/22/21 18:27 Levophed Drip 4 Mg/Ns 250 Ml IV 0 mcg/min TITR CECE 0 mls/hr Titration Protocol 2 MCG/MIN Dexmedetomidine HCl 1,000 mcg/ 260 mls @ 6.368 mls/hr 01/30/21 20:00 03/08/21 06:47 Sodium Chloride IV 1.4 mcg/kg/hr TITRATE CECE 44.579 mls/hr Titration Protocol 0.2 MCG/KG/HR Sodium Chloride 100 mls @ 999 mls/hr 02/27/21 11:00 Nacl 0.9% IV SAGRARIO PRN Hypotension Lansoprazole 30 mg 02/18/21 10:00 03/08/21 09:51 Lansoprazole 30 Mg Solutab FEEDTUBE 30 mg QDAY CECE Administration Neomycin/Polymyxin/Bacitracin 1 applic 03/02/21 15:00 03/08/21 07:57 Neomy 3.5 Mg/Bacit 400 Units/Poly B 5000 Units/Gm Oint Packet TP 1 applic TID CECE Administration Senna/Docusate Sodium 1 tab 02/25/21 10:00 03/08/21 09:51 Sennosides/Docusate Sodium 8.6/50 Mg Tab PO 1 tab BID CECE Administration Simple Syrup 15 ml 01/26/21 14:25 02/21/21 21:24 Simple Syrup 15 Ml FEEDTUBE 15 ml PRN PRN Administration Hypoglycemia Simple Syrup 30 ml 01/26/21 14:25 Simple Syrup 15 Ml FEEDTUBE PRN PRN Hypoglycemia Sodium Bicarbonate 325 mg 01/26/21 14:25 Sodium Bicarbonate 325 Mg Tab FEEDTUBE PRN PRN For Clogged Feeding Tube Sodium Hypochlorite 1 applic 03/05/21 22:00 03/08/21 09:51 Sodium Hypochlorite, Dakin's 1/2 Strength (0.25%) 473 Ml Topical Soln TP 1 applicatio BID CECE Administration Nutrition/Malnutrition Assess - Dietary Evaluation Nutrition/Malnutrition Findings: Nutrition Notes Start: 01/26/21 13:59 Freq: Status: Active Protocol: Document 03/04/21 08:52 AT (Rec: 03/04/21 08:58 AT [id number]) Co-Sign 03/04/21 08:52 MK Nutrition Notes Initial or Follow up Reassessment Current Diagnosis Acute Kidney Injury,Diabetes, Sepsis,Hypertension, Respiratory Failure, Hyperlipidemia Other Pertinent Diagnosis on HD, COVID-19 (+), bilat pneu Current Diet TF - Nepro at 46 ml/hr Labs/Tests BUN 78 Cr 2.5 BG 131 Pertinent Medications Fentanyl Height 5 ft 8 in Weight 105 kg [place] Body Weight (kg) 70.00 BMI 35.2 Weight change and time frame Wt change noted. Weight Status Obese Subjective/Other Information Follow up for TF tolerance. Visited pt at bedside and observed TF running at goal rate of 46 mL/hr. Pt remains on vent. Per RN, pt is tolerating TF without incident . Percent of energy/protein needs met: 100%/85% Burn Absent Trauma Absent GI Symptoms Constipation Difficulty In Swallowing Skin Integrity/Comment pressure ulcer to lips Current % PO Negligible Minimum of two criteria No Fluid Accumulation Moderate to Severe (severe) #2 Nutrition Diagnosis Increased nutrient needs ( specify in comment below) Diagnosis Progress(for reassessment Continues documentation) #1 Nutrition Diagnosis Inadequate oral intake Diagnosis Progress(for reassessment Continues documentation) Is patient on ventilator? Yes Is Patient Ambulatory and/or Out of Bed No REE-([facility]-confined to bed) 2194.092 Kcal/Kg value to use for calculation 17 Approximate Energy Requirements Using 1785 kcal/Kg Calculation Used for Recommendations Kcal/kg Additional Notes PRO needs: >105g (>1.2 g/kg AdBW 87.5 kg) Fluid needs: 500 + total output or per MD Nutrition Intervention Change Diet Order: Continue TF Nutrition Support: Nepro at 46 ml/hr with a free water flush of 200 ml q4h. Kcal 1,987 Protein (gm) 89 Fluid (mL) 803 Goal #1 TF tolerance Goal #2 TF to meet at least 75% energy and pro needs Anticipated Discharge Needs: unable to determine at this time Follow-Up By: 03/09/21 Additional Comments F/U for stable TF
--- NOTE | 2021-03-08 12:05 | Progress Note ---
Assessment and Plan Acute Hypoxic respiratory failure COVID-19 PNA Severe sepsis with septic shock Acute kidney injury secondary to ATN Hyperkalemia Hypernatremia DM2 on insulin Plan: Acute Hypoxic respiratory failure COVID-19 PNA Severe sepsis with septic shock Acute kidney injury secondary to ATN Hyperkalemia Hypernatremia DM2 on insulin Anemia Plan: Creatinine trending down creatinine clearance was 26 and UOP is improving please remove vascath. he may still need HD, if so will request permcath Initiated on HD on 02/03/21 Strict I&O's monitoring Renally dose medications Assess dialysis needs daily Monitor for renal recovery Subjective Date of service: 03/08/21 Principal diagnosis: DEISI Interval history: Intubated. Objective - Exam Narrative Exam: GE:Intubated HEENT:Limited due to Covid Neck:Limited due to Covid Chest:On Vent CVS:Limited due to Covid Abd:Limited due to Covid Neuro:Sedated - Vital Signs Vital signs: Vital Signs - 12hr 03/08/21 03/08/21 03/08/21 00:29 00:30 01:00 Temperature Pulse Rate 95 H 96 H 99 H Pulse Rate [ From Monitor] Respiratory 30 H 31 H Rate Respiratory Rate [Chest] Blood Pressure 95/51 95/51 97/55 O2 Sat by Pulse 93 93 94 Oximetry 03/08/21 03/08/21 03/08/21 01:30 02:00 02:30 Temperature Pulse Rate 98 H 96 H 96 H Pulse Rate [ From Monitor] Respiratory 32 H 30 H 31 H Rate Respiratory Rate [Chest] Blood Pressure 97/49 99/53 101/58 O2 Sat by Pulse 94 96 96 Oximetry 03/08/21 03/08/21 03/08/21 03:00 03:30 04:00 Temperature 98.7 F Pulse Rate 100 H 102 H 102 H Pulse Rate [ 104 H From Monitor] Respiratory 31 H 31 H 20 Rate Respiratory Rate [Chest] Blood Pressure 99/59 98/62 93/60 O2 Sat by Pulse 97 97 Oximetry 03/08/21 03/08/21 03/08/21 04:14 04:30 05:00 Temperature Pulse Rate 103 H 104 H 105 H Pulse Rate [ From Monitor] Respiratory 32 H 31 H Rate Respiratory Rate [Chest] Blood Pressure 93/60 101/62 98/62 O2 Sat by Pulse 96 94 94 Oximetry 03/08/21 03/08/21 03/08/21 05:31 06:00 06:30 Temperature Pulse Rate 102 H 110 H 107 H Pulse Rate [ From Monitor] Respiratory 16 34 H 33 H Rate Respiratory Rate [Chest] Blood Pressure 110/68 110/68 119/59 O2 Sat by Pulse 98 97 95 Oximetry 03/08/21 03/08/21 03/08/21 07:00 07:30 08:00 Temperature 98.0 F Pulse Rate 104 H 104 H 103 H Pulse Rate [ 103 H From Monitor] Respiratory 32 H 34 H 34 H Rate Respiratory Rate [Chest] Blood Pressure 114/59 118/62 128/69 O2 Sat by Pulse 94 92 92 Oximetry 03/08/21 03/08/21 03/08/21 08:31 09:00 09:02 Temperature Pulse Rate 95 H 92 H 92 H Pulse Rate [ From Monitor] Respiratory 41 H Rate Respiratory Rate [Chest] Blood Pressure 107/57 110/57 110/57 O2 Sat by Pulse 91 92 93 Oximetry 03/08/21 03/08/21 03/08/21 09:30 10:00 10:31 Temperature Pulse Rate 93 H 99 H 95 H Pulse Rate [ From Monitor] Respiratory 23 Rate Respiratory 32 H Rate [Chest] Blood Pressure 116/59 123/68 126/73 O2 Sat by Pulse 92 99 93 Oximetry 03/08/21 03/08/21 11:01 11:30 Temperature Pulse Rate 92 H 94 H Pulse Rate [ From Monitor] Respiratory 33 H 29 H Rate Respiratory Rate [Chest] Blood Pressure 103/55 116/64 O2 Sat by Pulse 92 92 Oximetry - Lab 03/07/21 08:01 03/08/21 04:20 Most recent lab results ABG pH 7.328 (7.320-7.450) 03/08/21 02:59 ABG pCO2 72.4 mm Hg 03/06/21 17:45 ABG pO2 78.1 mm Hg (80.0-90.0) L 03/06/21 17:45 ABG HCO3 33.7 mmol/L (20.0-26.0) H 03/06/21 17:45 ABG O2 Saturation 94.5 (0-100) 03/08/21 02:59 Calcium 7.9 mg/dL (8.4-10.2) L 03/08/21 04:20 Phosphorus 7.90 mg/dL (2.5-4.5) H 02/21/21 16:35 Magnesium 2.60 mg/dL (1.7-2.3) H 02/21/21 16:35 Urine Creatinine 65.9 mg/dL (0.1-20.0) H 03/05/21 Unknown Urine Creatinine 66.1 mg/dL (0.1-20.0) H 03/05/21 Unknown Urine Sodium 28 mmol/L 01/22/21 22:39 Medications & Allergies - Medications Allergies/Adverse Reactions: Allergies No Known Allergies Allergy (Unverified 03/12/20 13:41) Home Medications: Home Medications Medication Instructions Recorded Confirmed Last Taken Type Insulin NPH/Regular [Novolin 70/30] 18 unit SUB-Q TIDAC #1 vial 03/12/20 03/02/21 Unknown Rx Syringe-Needle,Insulin,0.5 ml 1 box MC TID #1 box 03/12/20 03/02/21 Unknown Rx [Insulin Syringe/Needle 0.5 ML] Active Medications: Generic Name Dose Route Start Last Admin Trade Name Freq PRN Reason Stop Dose Admin Acetaminophen 650 mg 01/24/21 12:58 03/07/21 22:17 Acetaminophen 325 Mg/10.15 Ml Oral Liqd Unit Dose FEEDTUBE 650 mg Q6H PRN Administration Pain, Mild (1-3) Lipase/Protease/Amylase 1 each 01/26/21 14:25 Lipase 10,500/Protease 25,000/Amylase 43,750 (Units) Dr Cap FEEDTUBE PRN PRN For Clogged Feeding Tube Dextrose 50 ml 01/27/21 07:24 Dextrose 50% In Water (25gm) 50 Ml Syringe IV Q30MIN PRN Hypoglycemia Protocol Fentanyl 50 mcg 01/22/21 22:39 02/25/21 10:25 Fentanyl 100 Mcg/2 Ml Inj IV 50 mcg Q10MIN PRN Administration ANALGESIA Heparin Sodium (Porcine) 2,000 unit 02/11/21 09:38 02/21/21 21:25 Heparin 10,000 Units/10 Ml Vial IV 2,000 unit SAGRARIO PRN Administration hemodialysis Heparin Sodium (Porcine) 5,000 unit 02/19/21 14:00 03/08/21 05:18 Heparin 5,000 Unit/1 Ml Vial SUB-Q 5,000 unit Q8HR CECE Administration Fentanyl Citrate 2,000 mcg in 100 mls @ 6.124 mls/hr 01/22/21 23:00 03/08/21 09:52 Fentanyl Drip Premix IV 3 mcg/kg/hr TITR CECE 18.371 mls/hr Administration Protocol 1 MCG/KG/HR Propofol 1,000 mg in 100 mls @ 3.674 mls/hr 01/22/21 23:45 02/21/21 08:30 Diprivan 10 Mg/Ml IV 0 mcg/kg/min TITR CECE 0 mls/hr Titration Protocol 5 MCG/KG/MIN Norepinephrine 4 mg in 250 mls @ 7.5 mls/hr 01/28/21 14:00 02/22/21 18:27 Levophed Drip 4 Mg/Ns 250 Ml IV 0 mcg/min TITR CECE 0 mls/hr Titration Protocol 2 MCG/MIN Dexmedetomidine HCl 1,000 mcg/ 260 mls @ 6.368 mls/hr 01/30/21 20:00 03/08/21 06:47 Sodium Chloride IV 1.4 mcg/kg/hr TITRATE CECE 44.579 mls/hr Titration Protocol 0.2 MCG/KG/HR Sodium Chloride 100 mls @ 999 mls/hr 02/27/21 11:00 Nacl 0.9% IV SAGRARIO PRN Hypotension Lansoprazole 30 mg 02/18/21 10:00 03/08/21 09:51 Lansoprazole 30 Mg Solutab FEEDTUBE 30 mg QDAY CECE Administration Neomycin/Polymyxin/Bacitracin 1 applic 03/02/21 15:00 03/08/21 07:57 Neomy 3.5 Mg/Bacit 400 Units/Poly B 5000 Units/Gm Oint Packet TP 1 applic TID CECE Administration Senna/Docusate Sodium 1 tab 02/25/21 10:00 03/08/21 09:51 Sennosides/Docusate Sodium 8.6/50 Mg Tab PO 1 tab BID CECE Administration Simple Syrup 15 ml 01/26/21 14:25 02/21/21 21:24 Simple Syrup 15 Ml FEEDTUBE 15 ml PRN PRN Administration Hypoglycemia Simple Syrup 30 ml 01/26/21 14:25 Simple Syrup 15 Ml FEEDTUBE PRN PRN Hypoglycemia Sodium Bicarbonate 325 mg 01/26/21 14:25 Sodium Bicarbonate 325 Mg Tab FEEDTUBE PRN PRN For Clogged Feeding Tube Sodium Hypochlorite 1 applic 03/05/21 22:00 03/08/21 09:51 Sodium Hypochlorite, Dakin's 1/2 Strength (0.25%) 473 Ml Topical Soln TP 1 applicatio BID CECE Administration
[2021-03-08] MEDS ORDERED: SODIUM CHLORIDE 0.9% 250ML 250 ML IV ONE ×2 (21:50→22:40)
[2021-03-08] MEDS: SODIUM CHLORIDE 0.9% 250ML 250 ML IV ONE ×2 (22:05→22:52)
[2021-03-09] MEDS: NORepinephrine/NS 4 MG-250 ML 4 MG/250 ML BAG IV SCH ×2 (00:45→08:20)
[2021-03-09] MEDS: dexmedeTOMIDine 1,000 MCG in SODIUM CHLORIDE 0.9% 250ML 250 ML IV SCH ×4 (01:39→21:40)
[2021-03-09] MEDS: fentaNYL DRIP Premix 2,000 MCG/100 ML BAG IV SCH ×5 (01:40→19:45)
[2021-03-09] MEDS: SODIUM HYPOCHLORITE, DAKIN'S 1/2 STRENGTH (0.25%) 473 ML TOPICAL SOLN TP SCH ×3 (03:41→21:34)
[2021-03-09] MEDS: HEPARIN 5,000 UNIT/1 ML VIAL SUB-Q SCH ×3 (06:17→21:34)
[2021-03-09 08:21] LABS: Hematocrit 23.4 % (35.5-45.6); Mean Corpuscular HGB Conc 30 % (32-34); Mean Corpuscular Volume 97 fl (84-94); Platelet Count 299 K/mm3 (140-440); Red Blood Count 2.41 M/mm3 (3.65-5.03)
[2021-03-09 08:27] LABS: Red Cell Distribution Width 20.1 % (13.2-15.2)
[2021-03-09 09:23] LABS: Calcium 7.8 mg/dL (8.4-10.2)
[2021-03-09] MEDS: SENNOSIDES/DOCUSATE SODIUM 8.6/50 MG TAB PO SCH ×2 (10:32→21:34)
[2021-03-09] MEDS: LANSOPRAZOLE 30 MG SOLUTAB FEEDTUBE SCH (10:32)
[2021-03-09] MEDS: NEOMY 3.5 MG/BACIT 400 UNITS/POLY B 5000 UNITS/GM OINT PACKET TP SCH ×3 (10:32→19:28)
--- NOTE | 2021-03-09 11:41 | Progress Note ---
Assessment and Plan Assessment: Acute Hypoxic respiratory failure COVID-19 PNA Severe sepsis with septic shock Acute kidney injury secondary to ATN Hyperkalemia Hypernatremia DM2 on insulin Anemia Plan: Hemodialysis has been discontinued. Serum creatinine 1.7 today. Has good UOP of 2100 ml Creatinine clearance was 26 ml/min Vasc cath was ordered to be removed from 03/06/21, discussed with nurse this morning who states it was not removed due to needing the catheter to administer Levophed. Advised that vascath should be removed. Nurse states they are planning to place a central line and she will discuss with Attending during rounds today. Obtain daily weights Strict I&O's monitoring Renally dose medications Continue to monitor renal function Subjective Date of service: 03/09/21 Principal diagnosis: DEISI Interval history: Patient not directly seen or examined due to being with active COVID-19 infection to limit/reduce risk of exposure and or transmission of the disease in this pandemic and due to limited PPE resources. Objective - Vital Signs Vital signs: Vital Signs - 12hr 03/09/21 03/09/21 03/09/21 00:00 00:15 00:30 Temperature Pulse Rate 93 H 111 H 91 H Pulse Rate [ From Monitor] Respiratory 26 H 31 H 27 H Rate Blood Pressure 89/47 80/46 O2 Sat by Pulse 91 90 90 Oximetry 03/09/21 03/09/21 03/09/21 01:00 01:31 02:01 Temperature Pulse Rate 104 H 111 H 108 H Pulse Rate [ From Monitor] Respiratory 28 H 31 H 29 H Rate Blood Pressure 128/68 141/61 115/47 O2 Sat by Pulse 96 96 94 Oximetry 03/09/21 03/09/21 03/09/21 02:30 03:00 03:30 Temperature Pulse Rate 109 H 108 H 108 H Pulse Rate [ From Monitor] Respiratory 29 H 29 H 28 H Rate Blood Pressure 128/63 138/66 143/67 O2 Sat by Pulse 95 93 93 Oximetry 03/09/21 03/09/21 03/09/21 03:40 03:41 04:00 Temperature 98.9 F Pulse Rate 106 H Pulse Rate [ 105 H From Monitor] Respiratory 31 H 26 H Rate Blood Pressure 140/68 O2 Sat by Pulse 90 94 Oximetry 03/09/21 03/09/21 03/09/21 04:30 05:00 05:30 Temperature Pulse Rate 106 H 106 H 105 H Pulse Rate [ From Monitor] Respiratory 30 H 28 H 26 H Rate Blood Pressure 153/70 155/73 158/79 O2 Sat by Pulse 95 96 96 Oximetry 03/09/21 03/09/21 03/09/21 06:00 06:30 07:00 Temperature Pulse Rate 105 H 94 H 94 H Pulse Rate [ From Monitor] Respiratory 28 H 28 H 28 H Rate Blood Pressure 151/74 104/57 122/62 O2 Sat by Pulse 95 93 92 Oximetry 03/09/21 03/09/21 03/09/21 07:30 08:00 08:30 Temperature 100.2 F H Pulse Rate 94 H 94 H 88 Pulse Rate [ 105 H From Monitor] Respiratory 28 H 28 H 28 H Rate Blood Pressure 115/61 112/53 105/54 O2 Sat by Pulse 94 94 94 Oximetry 03/09/21 03/09/21 08:45 09:00 Temperature Pulse Rate 87 87 Pulse Rate [ From Monitor] Respiratory 28 H Rate Blood Pressure 100/52 101/51 O2 Sat by Pulse 94 95 Oximetry - Lab 03/09/21 08:00 03/09/21 08:00 Most recent lab results ABG pH 7.256 (7.320-7.450) L 03/09/21 05:00 ABG pCO2 72.4 mm Hg 03/06/21 17:45 ABG pO2 78.1 mm Hg (80.0-90.0) L 03/06/21 17:45 ABG HCO3 33.7 mmol/L (20.0-26.0) H 03/06/21 17:45 ABG O2 Saturation 93.2 (0-100) 03/09/21 05:00 Calcium 7.8 mg/dL (8.4-10.2) L 03/09/21 08:00 Phosphorus 7.90 mg/dL (2.5-4.5) H 02/21/21 16:35 Magnesium 2.60 mg/dL (1.7-2.3) H 02/21/21 16:35 Urine Creatinine 65.9 mg/dL (0.1-20.0) H 03/05/21 Unknown Urine Creatinine 66.1 mg/dL (0.1-20.0) H 03/05/21 Unknown Urine Sodium 28 mmol/L 01/22/21 22:39 Medications & Allergies - Medications Allergies/Adverse Reactions: Allergies No Known Allergies Allergy (Unverified 03/12/20 13:41) Home Medications: Home Medications Medication Instructions Recorded Confirmed Last Taken Type Insulin NPH/Regular [Novolin 70/30] 18 unit SUB-Q TIDAC #1 vial 03/12/20 03/02/21 Unknown Rx Syringe-Needle,Insulin,0.5 ml 1 box MC TID #1 box 03/12/20 03/02/21 Unknown Rx [Insulin Syringe/Needle 0.5 ML] Active Medications: Generic Name Dose Route Start Last Admin Trade Name Freq PRN Reason Stop Dose Admin Acetaminophen 650 mg 01/24/21 12:58 03/07/21 22:17 Acetaminophen 325 Mg/10.15 Ml Oral Liqd Unit Dose FEEDTUBE 650 mg Q6H PRN Administration Pain, Mild (1-3) Lipase/Protease/Amylase 1 each 01/26/21 14:25 Lipase 10,500/Protease 25,000/Amylase 43,750 (Units) Dr Cap FEEDTUBE PRN PRN For Clogged Feeding Tube Dextrose 50 ml 01/27/21 07:24 Dextrose 50% In Water (25gm) 50 Ml Syringe IV Q30MIN PRN Hypoglycemia Protocol Fentanyl 50 mcg 01/22/21 22:39 02/25/21 10:25 Fentanyl 100 Mcg/2 Ml Inj IV 50 mcg Q10MIN PRN Administration ANALGESIA Heparin Sodium (Porcine) 2,000 unit 02/11/21 09:38 02/21/21 21:25 Heparin 10,000 Units/10 Ml Vial IV 2,000 unit SAGRARIO PRN Administration hemodialysis Heparin Sodium (Porcine) 5,000 unit 02/19/21 14:00 03/09/21 06:17 Heparin 5,000 Unit/1 Ml Vial SUB-Q 5,000 unit Q8HR CECE Administration Fentanyl Citrate 2,000 mcg in 100 mls @ 6.124 mls/hr 01/22/21 23:00 03/09/21 11:38 Fentanyl Drip Premix IV 3 mcg/kg/hr TITR CECE 18.371 mls/hr Administration Protocol 1 MCG/KG/HR Propofol 1,000 mg in 100 mls @ 3.674 mls/hr 01/22/21 23:45 02/21/21 08:30 Diprivan 10 Mg/Ml IV 0 mcg/kg/min TITR CECE 0 mls/hr Titration Protocol 5 MCG/KG/MIN Dexmedetomidine HCl 1,000 mcg/ 260 mls @ 6.368 mls/hr 01/30/21 20:00 03/09/21 08:10 Sodium Chloride IV 1.4 mcg/kg/hr TITRATE CECE 44.579 mls/hr Administration Protocol 0.2 MCG/KG/HR Sodium Chloride 100 mls @ 999 mls/hr 02/27/21 11:00 Nacl 0.9% IV SAGR[place]IO PRN Hypotension Norepinephrine 4 mg in 250 mls @ 7.5 mls/hr 03/09/21 00:18 03/09/21 08:20 Levophed Drip 4 Mg/Ns 250 Ml IV 2 mcg/min TITR CECE 7.5 mls/hr Administration Protocol 2 MCG/MIN Lansoprazole 30 mg 02/18/21 10:00 03/09/21 10:32 Lansoprazole 30 Mg Solutab FEEDTUBE 30 mg QDAY CEEC Administration Neomycin/Polymyxin/Bacitracin 1 applic 03/02/21 15:00 03/09/21 10:32 Neomy 3.5 Mg/Bacit 400 Units/Poly B 5000 Units/Gm Oint Packet TP 1 applic TID CECE Administration Senna/Docusate Sodium 1 tab 02/25/21 10:00 03/09/21 10:32 Sennosides/Docusate Sodium 8.6/50 Mg Tab PO 1 tab BID CECE Administration Simple Syrup 15 ml 01/26/21 14:25 02/21/21 21:24 Simple Syrup 15 Ml FEEDTUBE 15 ml PRN PRN Administration Hypoglycemia Simple Syrup 30 ml 01/26/21 14:25 Simple Syrup 15 Ml FEEDTUBE PRN PRN Hypoglycemia Sodium Bicarbonate 325 mg 01/26/21 14:25 Sodium Bicarbonate 325 Mg Tab FEEDTUBE PRN PRN For Clogged Feeding Tube Sodium Hypochlorite 1 applic 03/05/21 22:00 03/09/21 10:33 Sodium Hypochlorite, [place] 1/2 Strength (0.25%) 473 Ml Topical Soln TP 1 applicatio BID CECE Administration
--- NOTE | 2021-03-09 13:36 | Progress Note ---
Assessment and Plan Assessment and plan: This is a 60-year-old male with diabetes mellitus, hypertension, hyperlipidemia, chronic renal insufficiency presents to the emergency department on 01/23 with shortness of breath, fevers chills, loss of smell and taste and body aches for the past 3 days via EMS. Per EMS patient's oxygen saturation on room air was 50% and after being placed on nonrebreather it increased 75%. Upon arrival to the emergency department patient was being bagged by EMS. In the emergency room patient was intubated due to severe hypoxia, increased work of breathing and lethargy. Patient was sedated on propofol and fentanyl. Patient presented with fever, tachycardia, tachypnea and acute hypoxic respiratory failure with PNA on CXR meeting Sepsis criteria. Lab work in the emergency department revealed hyponatremia, hypokalemia, hypochloremia, elevated CR/BUN and CXR showed bilateral pneumonia. Patient was admitted to the hospital service as a COVID-19 PUI with consults to infectious disease, nephrology and critical care medicine. 01/24/2021: Patient is intubated and sedated, patient is positive for COVID-19 in fection. ID was consulted and put on dexamethasone and remdesivir. Patient has DEISI and nephrology is following. Creatinine stable, patient is urinating. Discussed with nephrology and he is okay with remdesivir. Pulmonary critical care is following for his vent setting. PEEP of 8 and FiO2 of 85%. Patient was alert and off sedatives. 01/25/2021; patient is intubated and on mechanical ventilation. Continue with treatment of Covid. Nephrology and ID is following. Pulmonary is following for vent management 01/26: Remains on mechanical ventilation and [facility] increased his PEEP. [facility] has ordered Precedex for sedation. Possibly need to prone this p.m. No acute events reported overnight. This morning his D-dimer is greater than 10,000 and we have started him on Lovenox 120 mg daily. Nutrition has been consulted for initiation of tube feedings. Patient remains sedated on propofol 40 and fentanyl for the time my examination this morning. 01/27: Continue Lovenox, remdesivir and empiric antibiotics. Patient had a T-max of 101 overnight. The time of examination patient is on CMV 500/18/14/0.61. Kidney function slightly worsened. Sedated on fentanyl ground-level fall and Precedex. Nephrology has increased IV fluids to 100 ml/hr. Continue to trend BMP and CBC. Sedation vacation attempt by RN this AM. 01/28: Patient completed antibiotics today [facility] will paralyze patient and increase sedation. PICC line ordered for possible vasopressor therapy need. Patient's D-dimer remains greater than 10,000 and he still has hyperchloremia. Patient's kidney function has improved today. May need to prone the patient if no improvement in oxygenation is noted in the next 24 hours. The time of my examination patient is sedated with propofol, fentanyl and Precedex and is on assist control 500/18/16/0.80 hypoxic on ABG on 60% FiO2. 01/29: Patient was started on Nimbex yesterday and his ABG this morning showed respiratory acidosis with hypercapnia and his respiratory rate was increased. We will obtain a repeat ABG this afternoon. This morning patient is hypernatremic, hyperkalemic and hyperchloremic. His potassium has been corrected with the management and will obtain repeat BMP tomorrow. His kidney functions have remained stable and we will await nephrology's input. No acute events reported overnight. This morning the time my examination patient sedated with propofol, Precedex and fentanyl and paralyzed with Nimbex. He is on assist control 500/24/16 0.80. 01/30: This morning patient is hypokalemic again and was given Kayexalate. Patient has hypernatremia and hyper chloremia and his renal function is slightly worse after receiving Lasix yesterday. His D-dimer remains greater than 10,000 and he is still on a paralytic. Patient is sedated on Precedex, fentanyl, propofol. Mechanical ventilation settings seven-point //28. [facility] has decided to continue paralytics for 48 more hours and will attempt proning the patient. Increased free water flushes 300 cc every 4 hours. Patient states has restarted his antibiotics cefepime and vancomycin and recultured. 01/31/21 Hyperkalemia, Treated 02/01/21 Hyperkalemia, Treated 02/02: Patient's kidney function continues to worsen and a stat BMP this morning shows BUN/creatinine 20/6.1 and he remains hypocalcemic and hypernatremic, hypokalemic and hypochloremic. Patient received 2 g of calcium gluconate and Kayexalate and his repeat potassium was 4.3 this afternoon. He remains antibiotic therapy and steroids. Nephrology has placed the patient on bicarb drip given metabolic acidosis and has decided to hold off hemodialysis till tomorrow.The time my examination patient is sedated on fentanyl, Precedex and on assist control 500/20/12/0.70. s/p paralytic. 02/03: Today patient's ABG shows respiratory acidosis however it is improving, hypernatremia, hyperchloremia, metabolic acidosis on BMP, worsening kidney func tion BUN/creatinine 130/9.2 with hyperphosphatemia. Patient received a Vas-Cath to his right IJ for initiation of dialysis. At the time of my examination patient remains sedated on fentanyl, propofol and Precedex with vasopressor support with Levophed at 2. 02/04: At the time of examination patient was on assist control tidal volume 500, rate 40, PEEP of 12, FiO2 85%. Patient had a T-max of 100.9 and infectious disease has stopped his vancomycin given negative MRSA. This afternoon patient respiked his temperature and was pancultured again. Patient was started on hemodialysis yesterday and will receive HD again today. Patient is sedated on Precedex, propofol, fentanyl and remains on Levophed. He is on assist control tidal volume 500, rate of 30, PEEP of 12, FiO2 of 85%. Patient still has some respiratory acidosis however his hypernatremia and hyperchloremia have improved and his metabolic acidosis has resolved. Patient will receive hemodialysis today 02/05: Patient continues to have low-grade fever temp this morning time examination he was on assist control tidal volume 500, and sedated on propofol/fentanyl/Precedex and is on Levophed. Hemodialysis per nephrology. Antibiotics per ID. Patient's blood culture from 02/04 grew gram-positive cocci in clusters in 1/2 bottles and he was started on vancomycin. 02/06: Patients ABG showed respiratory acidosis and the tracings were changed however a repeat ABG showed showed acidosis.[facility] will start a bicarb drip after giving 2 amps of bicarb push. Yesterday patient blood cultures grew gram- positive cocci and he was started on vancomycin. At the time my examination patient was on assist control tidal volume 550, rate 34, PEEP 16, FiO2 90% and sedated on fentanyl, Precedex, propofol elevated pressure support with Levophed. Bilateral lower extremity Doppler ultrasounds done yesterday showed no evidence of DVT/SVT. 02/07/2021; patient is still on the vent with PEEP of 16 and FiO2 of 90%, sedated with fentanyl Precedex and propofol. Patient still requiring Levophed. Patient was sedated yesterday and was given bicarb push. Blood culture grew gram- positive cocci in clusters and he is on vancomycin, will follow identification. 02/08/2021;patient is still on the vent with PEEP of 16 and FiO2 of 90%, sedated with fentanyl Precedex and propofol. Patient still requiring Levophed. Patient was sedated yesterday and was given bicarb push. Blood culture grew gram- positive cocci in clusters and he is on vancomycin, will follow identification. Patient is currently on dialysis. Patient is anemic transfuse if hemoglobin is below 7. 02/09: This morning patient has slight hypokalemia, hypochorlemia, hyponatremia and metabolic alkalosis. [facility] will continue bicarb gtt given that the patient does not have HD access at this time. We will replete the potassium and recheck BMP in the AM. We will type and cross in anticipation of PRBC transfusion. This morning he is sedated on Ativan, fentayl, and precedex. Will obtain a triglyceride level today in hopes to resume propofol. Patient is alkalotic and BMP however we will continue with bicarb drip per [facility] given that the patient does not have any access for hemodialysis. Anticipate replacing hemodialysis catheter tomorrow or Tuesday. The time my examination he is on AC TV 550, Rate 34, PeeP 16, FiO2 .65. 02/10: A.m. labs still pending, [facility] plans to replace HD catheter tomorrow as the patient is still febrile however his fever curve is trending down, remains on a bicarb drip and on vancomycin. Today at the time my examination patient was sedated on Precedex, Ativan and fentanyl and he is on assist control tidal 11/04/1951, rate 34, PEEP 16, FiO2 65%. Overnight patient was hypotensive and received 1 dose of midodrine. 02/11: Patient is still having low-grade temperatures that we will obtain a bilateral lower upper extremity venous Doppler ultrasound given that his repeat cultures have been negative so far. Patient received a Vas-Cath today for hemodialysis. The time examination patient is on assist control tidal volume 550, rate of 34, PEEP of 16 and FiO2 of 75%. Patient was hypokalemic and anemic yesterday which were both repleted with potassium and 1 unit PRBC. 02/12: 02/12: Patient had a 12-second run of V. tach today, his potassium and magn esium were low which was repleted. Renal adjusted potassium bath. We will obtain a triglyceride level in hopes to restarting to prevent as needed. This morning at the time my examination patient was sedated on fentanyl, Ativan and Precedex and remained on a bicarb drip. He was on assist control tidal volume 550, rate 34, PEEP 16, FiO2 85%. We will obtain a occult stool given no evident source of bleeding and need for transfusion. Anemia possibly due to hemodialysis. 02/13: Patient's T-max was 100.7, remains on fentanyl, Ativan, Precedex and bicarb drip this morning at some examination on assist control tidal volume 550, rate 34, PEEP 16 and FiO2 85%. On the labs this morning is slightly hypokalemic and remains metabolic alkalotic on BMP. His occult was positive. His Lovenox and consult GI. Patient received hemodialysis today. 02/14: cont PPI, GI recommended to scope now, monitor clinically, tolerating TF, remains intubated. Hb 6.9 today - transfuse another unit. very poor prognosis. 02/15: H&H appears to be stable following 1 unit of transfusion yesterday. Continue to hold heparin and aspirin products. Continue to monitor clinically. Poor prognosis. Wean off from vent as tolerated. 02/16: Infectious disease has signed off, his Ativan drip was discontinued and to prevent drip will be started when patient needs it. T-max 100.6 yesterday afternoon. He received hemodialysis today and at the time my examination was still on mechanical ventilation assist control tidal volume 550, rate 34, PEEP 16 on 70% FiO2. Patient was sedated on fentanyl dexamethasone and Ativan. No acute events reported overnight. 02/17: This morning patient was scheduled to get 2 units PRBC however his repeat H/H after 1 unit PRBC was 7.6/22.8 and the width of the second unit PRBC. This morning patient was sedated on fentanyl, propofol, Precedex and on assist control tolerated by 50, rate 34, PEEP of 16, FiO2 35%. Wound care was consulted today for his upper lip wound. Nephrology continues to withhold dialysis. No acute events reported overnight. Dr. Adkins was unable to co ntact family for updates. 02/18: Family updated by Dr. Adkins and Dr. Reddy. Patient had a hemo dialysis today. The time my examination patient was on assist control tidal volume 550, rate 34, PEEP 16 and FiO2 35%. Overnight patient had a CT head and he was placed on 3% FiO2 and took "a long time to recover" per RN report. 02/19: Patient's D-dimer is trending up therefore he was started on prophylactic anticoagulation, no bowel movement for several days so he was started on mag citrate today. The time examination patient is sedated on Precedex 1.2, fentanyl 3, propofol 20 on assist control tidal volume 550, rate 34, PEEP 16, 80% FiO2 and on his ABG his PaO2 is 106. RT will try to wean as tolerated. Repeat COVID-19 PCR today was positive.Dr. Adkins updated the family today. 02/20: Patient received hemodialysis today. In the time my examination patient was sedated on Precedex, fentanyl, propofol and on assist control tidal line 550, rate 34, PEEP of 16 and 75% FiO2. Patient had a bowel movement yesterday. 02/21 no new concerns at this time afebrile Hospital course remains uncomplicated. 02/22. Hospital course complicated by an episode of ectopy over the p.m. Patient required Levophed for blood pressure control. Remains intubated sedated. Tolerated hemodialysis yesterday. 02/23: At the time my examination patient is on assist control tidal volume 550, rate 34, PEEP 16, FiO2 70% and is not sedated. Patient does not follow commands however his eyes open spontaneously and he does not track/focus. 02/24: Neurology consulted, EEG pending. No acute events reported overnight. Patient remains on hyperventilation totaling 550, rate 34, PEEP of 16 on 70% FiO2. Patient received hemodialysis yesterday. 02/25: EEG from 02/24 is suggestive of encephalopathy (toxic metabolic etiology cannot be excluded). This afternoon his peak pressures and and mean airway pres sure is elevated so we obtained a CXR and ABG. Results were called to Dr. Masters. Patient received 2 mg of Versed was placed back on his sedation with fentanyl and Precedex. 02/26: Patient is on pressure ventilation FiO2 70%, Pressure inspiration 25, rate 34, PEEP 10 and sedated on fentanyl at 2mcgs and Precedex at 0.2. We will obtain a cxr for evaluation. Patient seems to be much more comfortable today. 02/27: CXr unchanged, at the time of my examination patient is on pressure control ventilation FiO2 70%, pressure support 26, rate 34 n.p.o. for 10 and sedated on fentanyl at 2 and Precedex at 0.1. His latest ABG 7.3, CO2 49, PO2 111, base excess 24. Patient is to receive hemodialysis today. No acute events reported overnight. Patient still not following commands. 02/28: Continue mechanical ventilation per pulmonary recommendations. Patient currently in AC mode ventilation rate 34, FiO2 70%, PEEP 15. 02/24 EEG finding consistent with encephalopathy and/or drug effect, possibility of toxic metabolic etiology cannot be excluded, possibility of structural lesion on the left side cannot be excluded given left being slightly slower than the right. Continue hemodialysis per nephrology. Currently with sedation of fentanyl and Precedex. Pulmonary plans for trach when ventilator settings allow. 03/01: Patient remains on mechanical ventilation AC mode, FiO2 70%, PEEP of 10. Hemodialysis initiated on 02/03/2021. Continue per nephrology. Patient will need tracheostomy once ventilator settings allow. Continue supportive care with tube feedings. Aspiration precautions. Patient appears to have penile ulceration and purulence. Consult urology for further evaluation. Prognosis remains guarded. 03/02: Tentative plan to place permacath tomorrow, patient will be n.p.o. after midnight and repeat COVID-19 PCR was ordered. Urology was consulted for a possible penile fistula. Patient received hemodialysis today. Today at the time of examination patient was on pressure control ventilation with a PEEP of 10 and FiO2 of 60 sedated on fentanyl and Precedex. 03/03: Patient noted to be anemic and ordered 1 unit of PRBC to be transfused, [facility] thinks patient has suffered from oxygen toxicity from prolonged time on high levels of oxygen (greater than 60%) for several weeks. The time my examination patient was on volume control ventilation and he remains off sedation. 03/04: Patient H/H today and 7.04/30:24 unit PRBC yesterday. Patient remains on pressure control ventilation with a pressure support of 26, FiO2 55, rate of 24 and PEEP of 10. His sedation was restarted yesterday for increase WOB and tachypnea. Patient is sedated on fentanyl and dexamethasone. We will continue current management and possibly obtain a CT head on Tuesday if no improvement in mental status. 03/05: Infectious disease has stated that the patient is noninfectious as per PermCath procedure. However patient is renal function is improving and nephrology has opted to place PermCath on Tuesday if HD is still indicated. Patient was given mag citrate today for constipation and sodium bicarbonate push. Today surgery was consulted for possible debridement of sacral wound. 03/06: Patient is sedated on fentanyl and dexamethasone on pressure control ventilation FiO2 55%, pressure support 26, rate 40 and PEEP of 10 at the time my examination. And he was switched to assist control by [facility]. Patient continues to have low-grade fevers which may be multifactorial. Given that creatinine clearance was 26 and urine output is improving nephrology has decided to hold HD for now. General surgery has debrided the sacaral wound today. Will attempt to obtain midline or PIV in order to remove CVL BILLIE. 03/07: Alert, examination patient was sedated on fentanyl and dexamethasone on assist control tidal volume 550, rate 26, PEEP of 14 and 55% FiO2. Patient renal function has remained stable and we will monitor him off of hemodialysis. RN was unable to obtain a midline or PIV. Per [facility] CVL remain and possible small clot in the left IJ visualized with ultrasound probe. Will monitor fever curve. 03/08: Overnight FiO2 requirements increased, UOP remains good, decrease in Cr, increase in Na. Spoke to bedside RN about [facility]WF. [facility] changed patient to PRVC. 03/09: Hypotensive. Received a bolus of fluid awaiting reevaluation may need to go back on pressors are still with intermittent low grade fever. Continues on Demadex. Not on dialysis at this time. [facility] has asked that HD access be discontinued. Nurse working on that. Sepsis COVID-19 pneumonia Coag-neg Staph bacteremia Acute hypoxic respiratory failure Acute kidney injury, HD initiated 02/03 Hypernatremia Anemia Diabetes mellitus Hypertension Hyperlipidemia Chronic renal insufficiency Elevated D-dimer Penile ulceration Sacral wound -CCM, nephrology, infectious disease, GI , vascular surgery, surgery, urology, neurology consulted, appreciate recommendations -s/p Antibiotic therapy, remdesivir, Steroid therapy -COVID-19 PCR positive, Pneumonia on CXR -Mechanical ventilation, wean as tolerated -VAP bundle -HD per nephrology, on hold given improvement 03/06 -S/p 5 units PRBC during stay -Trend BMP, CBC, COVID-19 inflammatory markers -Bilateral lower extremity and upper extremity Doppler ultrasound negative for DVT/SVT -SSI and Long-acting insulin -Accu-Cheks every 6 while on tube feedings -Hold home antihypertensive regimen and resume when appropriate -S/p vasopressor support -Blood pressure monitoring per protocol -S/p NaHCO3 gtt -02/17 CT head showed no acute intracranial abnormality, paranasal sinus disease -Bowel regimen, now on hold -02/24 EEG finding consistent with encephalopathy and/or drug effect, possibility of toxic metabolic etiology cannot be excluded, possibility of structural lesion on the left side cannot be excluded given left being slightly slower than the right. -Neosporin twice daily to penile shaft ulcer -01/23, 02/18, 03/02 COVID-19 PCR positive -Permcath placement pending -03/06 s/p bedside debridement with surgery -Wound care per nursing DVT/GI prophylaxis: SCDs to bilateral lower extremities while in bed, PPI, heparin subq Dispo: ICU The high probability of a clinically significant, sudden or life threatening deterioration of the [multi] system(s) required my full and direct attention, intervention and personal management. The aggregate critical care time was [35] minutes. This time is in addition to time spent performing reported procedures but includes the following: [x] Data Review and interpretation [x] Patient assessment and monitoring of vital signs [x] Documentation [x] Medication orders and management History Interval history: Patient seen and examined remains on full ventilatory support. Over the past few days has shown some recurrence hypotensive episodes. Hospitalist Physical - Physical exam Narrative exam: General appearance: Present: no acute distress, obese, other (on mechanical ventilation, sedated) - EENT Eyes: Present: PERRL ENT: poor dentition - Neck Neck: Absent: masses or JVD, cervical LAD - Respiratory Respiratory effort: normal Respiratory: bilateral: diminished - Cardiovascular Rhythm: regular Heart Sounds: Present: S1 & S2. Absent: systolic murmur, diastolic murmur - Extremities Extremities: no ischemia, pulses intact, pulses symmetrical, normal temperature, normal color Extremity abnormal: edema Peripheral Pulses: within normal limits - Abdominal General gastrointestinal: soft, non-tender, non-distended, normal bowel sounds - Integumentary Integumentary: Present: warm, dry - Psychiatric Psychiatric: other (sedated) - Neurologic Neurologic: other (sedated) - Allied Health Allied health notes reviewed: nursing, RT - Constitutional Vitals: Temp Pulse Resp BP Pulse Ox 99.6 F 89 28 H 89/56 95 03/09/21 12:00 03/09/21 12:30 03/09/21 12:30 03/09/21 12:30 03/09/21 12:30 General appearance: Present: no acute distress, obese, other (on mechanical ventilation, sedated) HEART Score - HEART Score Risk factors: 1-2 risk factors Troponin: < normal limit - Critical Actions Critical Actions: 0-3 pts:0.9-1.7%risk of adverse cardiac event.Candidate for discharge Results - Labs CBC & Chem 7: 03/09/21 08:00 03/09/21 08:00 Labs: Laboratory Last Values WBC 17.5 K/mm3 (4.5-11.0) H 03/09/21 08:00 RBC 2.41 M/mm3 (3.65-5.03) L 03/09/21 08:00 Hgb 7.0 gm/dl (11.8-15.2) L 03/09/21 08:00 Hct 23.4 % (35.5-45.6) L 03/09/21 08:00 MCV 97 fl (84-94) H 03/09/21 08:00 MCH 29 pg (28-32) 03/09/21 08:00 MCHC 30 % (32-34) L 03/09/21 08:00 RDW 20.1 % (13.2-15.2) H 03/09/21 08:00 Plt Count 299 K/mm3 (140-440) 03/09/21 08:00 Lymph % (Auto) 7.3 % (13.4-35.0) L 03/07/21 08:01 Harmon % (Auto) 6.9 % (0.0-7.3) 03/07/21 08:01 Eos % (Auto) 2.2 % (0.0-4.3) 03/07/21 08:01 Baso % (Auto) 0.8 % (0.0-1.8) 03/07/21 08:01 Lymph # (Auto) 0.9 K/mm3 (1.2-5.4) L 03/07/21 08:01 Harmon # (Auto) 0.8 K/mm3 (0.0-0.8) 03/07/21 08:01 Eos # (Auto) 0.3 K/mm3 (0.0-0.4) 03/07/21 08:01 Baso # (Auto) 0.1 K/mm3 (0.0-0.1) 03/07/21 08:01 Add Manual Diff Complete 02/24/21 04:25 Total Counted 100 02/24/21 04:25 Seg Neutrophils % 82.8 % (40.0-70.0) H 03/07/21 08:01 Seg Neuts % (Manual) 82.0 % (40.0-70.0) H 02/24/21 04:25 Band Neutrophils % 2.0 % 02/16/21 Unknown Lymphocytes % (Manual) 3.0 % (13.4-35.0) L 02/24/21 04:25 Reactive Lymphs % (Man) 1.0 % 01/27/21 05:29 Monocytes % (Manual) 11.0 % (0.0-7.3) H 02/24/21 04:25 Eosinophils % (Manual) 1.0 % (0.0-4.3) 02/24/21 04:25 Basophils % (Manual) 1.0 % (0.0-1.8) 02/24/21 04:25 Metamyelocytes % 2.0 % 02/24/21 04:25 Nucleated RBC % Not Reportable 02/24/21 04:25 Seg Neutrophils # 9.8 K/mm3 (1.8-7.7) H 03/07/21 08:01 Seg Neutrophils # Man 9.4 K/mm3 (1.8-7.7) H 02/24/21 04:25 Band Neutrophils # 0.0 K/mm3 02/24/21 04:25 Lymphocytes # (Manual) 0.3 K/mm3 (1.2-5.4) L 02/24/21 04:25 Abs React Lymphs (Man) 0.0 K/mm3 02/24/21 04:25 Monocytes # (Manual) 1.3 K/mm3 (0.0-0.8) H 02/24/21 04:25 Eosinophils # (Manual) 0.1 K/mm3 (0.0-0.4) 02/24/21 04:25 Basophils # (Manual) 0.1 K/mm3 (0.0-0.1) 02/24/21 04:25 Metamyelocytes # 0.2 K/mm3 02/24/21 04:25 Myelocytes # 0.0 K/mm3 02/24/21 04:25 Promyelocytes # 0.0 K/mm3 02/24/21 04:25 Blast Cells # 0.0 K/mm3 02/24/21 04:25 WBC Morphology Not Reportable 02/24/21 04:25 Hypersegmented Neuts Not Reportable 02/24/21 04:25 Hyposegmented Neuts Not Reportable 02/24/21 04:25 Hypogranular Neuts Not Reportable 02/24/21 04:25 Smudge Cells Not Reportable 02/24/21 04:25 Toxic Granulation Not Reportable 02/24/21 04:25 Toxic Vacuolation Not Reportable 02/24/21 04:25 Dohle Bodies Not Reportable 02/24/21 04:25 Pelger-Huet Anomaly Not Reportable 02/24/21 04:25 Fátima Rods Not Reportable 02/24/21 04:25 Platelet Estimate Consistent w auto 02/24/21 04:25 Clumped Platelets Not Reportable 02/24/21 04:25 Plt Clumps, EDTA Not Reportable 02/24/21 04:25 Large Platelets Not Reportable 02/24/21 04:25 Giant Platelets Not Reportable 02/24/21 04:25 Platelet Satelliting Not Reportable 02/24/21 04:25 Plt Morphology Comment Not Reportable 02/24/21 04:25 RBC Morphology Not Reportable 02/24/21 04:25 Dimorphic RBCs Not Reportable 02/24/21 04:25 Polychromasia Few 02/24/21 04:25 Hypochromasia Not Reportable 02/24/21 04:25 Poikilocytosis Not Reportable 02/24/21 04:25 Anisocytosis 1+ 02/24/21 04:25 Microcytosis Not Reportable 02/24/21 04:25 Macrocytosis Not Reportable 02/24/21 04:25 Spherocytes Not Reportable 02/24/21 04:25 Pappenheimer Bodies Not Reportable 02/24/21 04:25 Sickle Cells Not Reportable 02/24/21 04:25 Target Cells Not Reportable 02/24/21 04:25 Tear Drop Cells Not Reportable 02/24/21 04:25 Ovalocytes Not Reportable 02/24/21 04:25 Helmet Cells Not Reportable 02/24/21 04:25 Potter-Elysian Bodies Not Reportable 02/24/21 04:25 [place] Rings Not Reportable 02/24/21 04:25 Ludmila Cells Not Reportable 02/24/21 04:25 Bite Cells Not Reportable 02/24/21 04:25 Crenated Cell Not Reportable 02/24/21 04:25 Elliptocytes Not Reportable 02/24/21 04:25 Acanthocytes (Spur) Not Reportable 02/24/21 04:25 Rouleaux Not Reportable 02/24/21 04:25 Hemoglobin C Crystals Not Reportable 02/24/21 04:25 Schistocytes Not Reportable 02/24/21 04:25 Malaria parasites Not Reportable 02/24/21 04:25 Aquiles Bodies Not Reportable 02/24/21 04:25 Hem Pathologist Commnt No 02/24/21 04:25 PT 14.6 Sec. (12.2-14.9) 03/03/21 Unknown INR 1.15 (0.87-1.13) H 03/03/21 Unknown D-Dimer 6536.84 ng/mlDDU (0-234) H 02/25/21 09:03 ABG pH 7.256 (7.320-7.450) L 03/09/21 05:00 POC ABG pCO2 77.8 mmHg (32.0-48.0) H 03/09/21 05:00 ABG pCO2 72.4 mm Hg 03/06/21 17:45 POC ABG pO2 71.2 mmHg (83-108) L 03/09/21 05:00 ABG pO2 78.1 mm Hg (80.0-90.0) L 03/06/21 17:45 POC ABG HCO3 33.8 03/09/21 05:00 ABG HCO3 33.7 mmol/L (20.0-26.0) H 03/06/21 17:45 ABG O2 Saturation 93.2 (0-100) 03/09/21 05:00 ABG O2 Content 13.5 (0.0-44) 03/06/21 17:45 POC ABG Base Excess 5.5 03/09/21 05:00 ABG Base Excess 5.5 mmol/L (-2.0-3.0) H 03/06/21 17:45 ABG Hemoglobin 8.2 (12.0-17.5) L 03/09/21 05:00 ABG Oxyhemoglobin 91.7 (94-98) L 03/09/21 05:00 ABG Carboxyhemoglobin 2.3 % (0.0-5.0) 03/06/21 17:45 ABG Methemoglobin 0.2 (0.0-1.5) 03/09/21 05:00 ABG Sodium 152.4 mmol/L (136.0-145.0) H 03/09/21 05:00 ABG Potassium 3.9 mmol/L (3.40-4.50) 03/09/21 05:00 ABG Chloride 115.0 mmol/L (98-107) H 03/09/21 05:00 ABG Glucose 190 mg/dL (65-95) H 03/09/21 05:00 Oxyhemoglobin 92.3 % (95.0-99.0) L 03/06/21 17:45 Carboxyhemoglobin 1.4 (0.5-1.5) 03/09/21 05:00 FiO2 55 % 03/06/21 17:45 FiO2 % 80.0 03/09/21 05:00 Sodium 157 mmol/L (137-145) H 03/09/21 08:00 Potassium 3.7 mmol/L (3.6-5.0) 03/09/21 08:00 Chloride 115.2 mmol/L (98-107) H 03/09/21 08:00 Carbon Dioxide 35 mmol/L (22-30) H 03/09/21 08:00 Anion Gap 11 mmol/L 03/09/21 08:00 BUN 96 mg/dL (9-20) H 03/09/21 08:00 Creatinine 1.7 mg/dL (0.8-1.3) H 03/09/21 08:00 Estimated GFR 50 ml/min 03/09/21 08:00 BUN/Creatinine Ratio 56 % 03/09/21 08:00 Glucose 167 mg/dL (75-100) H 03/09/21 08:00 POC Glucose 145 mg/dL (70-105) H 03/09/21 11:43 Hemoglobin A1c 6.3 % (4-6) H 02/02/21 16:00 Lactic Acid 1.90 mmol/L (0.7-2.0) 01/24/21 14:38 Calcium 7.8 mg/dL (8.4-10.2) L 03/09/21 08:00 Phosphorus 7.90 mg/dL (2.5-4.5) H 02/21/21 16:35 Magnesium 2.60 mg/dL (1.7-2.3) H 02/21/21 16:35 Ferritin 867.8 ng/mL (30.0-300.0) H 02/26/21 05:48 Total Bilirubin 1.50 mg/dL (0.1-1.2) H 01/26/21 05:47 AST 37 units/L (5-40) 01/26/21 05:47 ALT 29 units/L (7-56) 01/26/21 05:47 Alkaline Phosphatase 70 units/L (35-129) 01/26/21 05:47 Lactate Dehydrogenase 345 units/L (91-180) H 02/19/21 05:45 C-Reactive Protein 5.90 mg/dL (0.00-1.30) H 02/26/21 05:48 Total Protein 7.2 g/dL (6.3-8.2) 01/26/21 05:47 Albumin 2.2 g/dL (3.9-5) L 01/26/21 05:47 Albumin/Globulin Ratio 0.4 % 01/26/21 05:47 Triglycerides 195 mg/dL (2-149) H 02/19/21 05:45 Procalcitonin 18.94 ng/mL (<0.15) 02/16/21 17:09 Arterial Blood Glucose 190 mg/dL (65-95) H 03/09/21 05:00 Arterial Blood Ionized Calcium 4.6 mg/dL (4.6-5.3) 03/09/21 05:00 Urine Color Nehal (Yellow) 01/22/21 22:39 Urine Turbidity Cloudy (Clear) 01/22/21 22:39 Urine pH 5.0 (5.0-7.0) 01/22/21 22:39 Ur Specific Pierce 1.017 (1.003-1.030) 01/22/21 22:39 Urine Protein 100 mg/dl mg/dL (Negative) 01/22/21 22:39 Urine Glucose (UA) Neg mg/dL (Negative) 01/22/21 22:39 Urine Ketones Neg mg/dL (Negative) 01/22/21 22:39 Urine Blood Mod (Negative) 01/22/21 22:39 Urine Nitrite Neg (Negative) 01/22/21 22:39 Urine Bilirubin Neg (Negative) 01/22/21 22:39 Urine Urobilinogen 2.0 mg/dL (<2.0) 01/22/21 22:39 Ur Leukocyte Esterase Mod (Negative) 01/22/21 22:39 Urine WBC (Auto) < 1.0 /HPF (0.0-6.0) 01/22/21 22:39 Urine RBC (Auto) < 1.0 /HPF (0.0-6.0) 01/22/21 22:39 U Epithel Cells (Auto) < 1.0 /HPF (0-13.0) 01/22/21 22:39 Urine Osmolality 416 Mosm/kg 01/30/21 12:15 Urine Total Volume 1800 ml 03/05/21 Unknown Urine Total Volume 1800 ml 03/05/21 Unknown Urine Creatinine 65.9 mg/dL (0.1-20.0) H 03/05/21 Unknown Urine Creatinine 66.1 mg/dL (0.1-20.0) H 03/05/21 Unknown Ur Creatinine 24 Hour 1.2 (0.8-2.8) 03/05/21 Unknown Height (in) 68.0 inches 03/05/21 Unknown Weight (lb) 283.3 lbs 03/05/21 Unknown Creatinine Clearance 26 03/05/21 Unknown Urine Sodium 28 mmol/L 01/22/21 22:39 Nasal Screen MRSA (PCR) Negative (Negative) 02/02/21 13:20 Random Vancomycin 13.7 ug/mL (0-40.0) 02/07/21 10:40 Coronavirus (PCR) Positive (Negative) A 03/02/21 08:35 Hepatitis A IgM Ab Non-reactive (NonReactive) 02/03/21 Unknown Hep Bs Antigen Non-reactive (Negative) 02/03/21 Unknown Hep B Core IgM Ab Non-reactive (NonReactive) 02/03/21 Unknown Hepatitis C Antibody Non-reactive (NonReactive) 02/03/21 Unknown Blood Type B POSITIVE 03/03/21 Unknown Antibody Screen Negative 03/03/21 Unknown Crossmatch See Detail 03/03/21 Unknown Black/IV: Voiding Method Indwelling Catheter Active Medications - Current Medications Current Medications: Generic Name Dose Route Start Last Admin Trade Name Freq PRN Reason Stop Dose Admin Acetaminophen 650 mg 01/24/21 12:58 03/07/21 22:17 Acetaminophen 325 Mg/10.15 Ml Oral Liqd Unit Dose FEEDTUBE 650 mg Q6H PRN Administration Pain, Mild (1-3) Lipase/Protease/Amylase 1 each 01/26/21 14:25 Lipase 10,500/Protease 25,000/Amylase 43,750 (Units) Dr Cap FEEDTUBE PRN PRN For Clogged Feeding Tube Dextrose 50 ml 01/27/21 07:24 Dextrose 50% In Water (25gm) 50 Ml Syringe IV Q30MIN PRN Hypoglycemia Protocol Fentanyl 50 mcg 01/22/21 22:39 02/25/21 10:25 Fentanyl 100 Mcg/2 Ml Inj IV 50 mcg Q10MIN PRN Administration ANALGESIA Heparin Sodium (Porcine) 2,000 unit 02/11/21 09:38 02/21/21 21:25 Heparin 10,000 Units/10 Ml Vial IV 2,000 unit SAGRARIO PRN Administration hemodialysis Heparin Sodium (Porcine) 5,000 unit 02/19/21 14:00 03/09/21 06:17 Heparin 5,000 Unit/1 Ml Vial SUB-Q 5,000 unit Q8HR CECE Administration Fentanyl Citrate 2,000 mcg in 100 mls @ 6.124 mls/hr 01/22/21 23:00 03/09/21 11:38 Fentanyl Drip Premix IV 3 mcg/kg/hr TITR CECE 18.371 mls/hr Administration Protocol 1 MCG/KG/HR Propofol 1,000 mg in 100 mls @ 3.674 mls/hr 01/22/21 23:45 02/21/21 08:30 Diprivan 10 Mg/Ml IV 0 mcg/kg/min TITR CECE 0 mls/hr Titration Protocol 5 MCG/KG/MIN Dexmedetomidine HCl 1,000 mcg/ 260 mls @ 6.368 mls/hr 01/30/21 20:00 03/09/21 08:10 Sodium Chloride IV 1.4 mcg/kg/hr TITRATE CECE 44.579 mls/hr Administration Protocol 0.2 MCG/KG/HR Sodium Chloride 100 mls @ 999 mls/hr 02/27/21 11:00 Nacl 0.9% IV SAGRARIO PRN Hypotension Norepinephrine 4 mg in 250 mls @ 7.5 mls/hr 03/09/21 00:18 03/09/21 08:20 Levophed Drip 4 Mg/Ns 250 Ml IV 2 mcg/min TITR CECE 7.5 mls/hr Administration Protocol 2 MCG/MIN Lansoprazole 30 mg 02/18/21 10:00 03/09/21 10:32 Lansoprazole 30 Mg Solutab FEEDTUBE 30 mg QDAY CECE Administration Neomycin/Polymyxin/Bacitracin 1 applic 03/02/21 15:00 03/09/21 10:32 Neomy 3.5 Mg/Bacit 400 Units/Poly B 5000 Units/Gm Oint Packet TP 1 applic TID CECE Administration Senna/Docusate Sodium 1 tab 02/25/21 10:00 03/09/21 10:32 Sennosides/Docusate Sodium 8.6/50 Mg Tab PO 1 tab BID CECE Administration Simple Syrup 15 ml 01/26/21 14:25 02/21/21 21:24 Simple Syrup 15 Ml FEEDTUBE 15 ml PRN PRN Administration Hypoglycemia Simple Syrup 30 ml 01/26/21 14:25 Simple Syrup 15 Ml FEEDTUBE PRN PRN Hypoglycemia Sodium Bicarbonate 325 mg 01/26/21 14:25 Sodium Bicarbonate 325 Mg Tab FEEDTUBE PRN PRN For Clogged Feeding Tube Sodium Hypochlorite 1 applic 03/05/21 22:00 03/09/21 10:33 Sodium Hypochlorite, Dakin's 1/2 Strength (0.25%) 473 Ml Topical Soln TP 1 applicatio BID CECE Administration Nutrition/Malnutrition Assess - Dietary Evaluation Nutrition/Malnutrition Findings: Nutrition Notes Start: 01/26/21 13:59 Freq: Status: Active Protocol: Document 03/04/21 08:52 AT (Rec: 03/04/21 08:58 AT [id number]) Co-Sign 03/04/21 08:52 MK Nutrition Notes Initial or Follow up Reassessment Current Diagnosis Acute Kidney Injury,Diabetes, Sepsis,Hypertension, Respiratory Failure, Hyperlipidemia Other Pertinent Diagnosis on HD, COVID-19 (+), bilat pneu Current Diet TF - Nepro at 46 ml/hr Labs/Tests BUN 78 Cr 2.5 BG 131 Pertinent Medications Fentanyl Height 5 ft 8 in Weight 105 kg [place] Body Weight (kg) 70.00 BMI 35.2 Weight change and time frame Wt change noted. Weight Status Obese Subjective/Other Information Follow up for TF tolerance. Visited pt at bedside and observed TF running at goal rate of 46 mL/hr. Pt remains on vent. Per RN, pt is tolerating TF without incident . Percent of energy/protein needs met: 100%/85% Burn Absent Trauma Absent GI Symptoms Constipation Difficulty In Swallowing Skin Integrity/Comment pressure ulcer to lips Current % PO Negligible Minimum of two criteria No Fluid Accumulation Moderate to Severe (severe) #2 Nutrition Diagnosis Increased nutrient needs ( specify in comment below) Diagnosis Progress(for reassessment Continues documentation) #1 Nutrition Diagnosis Inadequate oral intake Diagnosis Progress(for reassessment Continues documentation) Is patient on ventilator? Yes Is Patient Ambulatory and/or Out of Bed No REE-([facility]-confined to bed) 2194.092 Kcal/Kg value to use for calculation 17 Approximate Energy Requirements Using 1785 kcal/Kg Calculation Used for Recommendations Kcal/kg Additional Notes PRO needs: >105g (>1.2 g/kg AdBW 87.5 kg) Fluid needs: 500 + total output or per MD Nutrition Intervention Change Diet Order: Continue TF Nutrition Support: Nepro at 46 ml/hr with a free water flush of 200 ml q4h. Kcal 1,987 Protein (gm) 89 Fluid (mL) 803 Goal #1 TF tolerance Goal #2 TF to meet at least 75% energy and pro needs Anticipated Discharge Needs: unable to determine at this time Follow-Up By: 03/09/21 Additional Comments F/U for stable TF
--- NOTE | 2021-03-09 16:56 | Progress Note ---
Assessment and Plan Imp: 1. Covid-19 2. Viral pneumonia 3. ARDS 4. Acute respiratory failure, hypoxia 5. Morbid obesity 6. DEISI 7. Anasarca 8. SIRS 9. Hypernatremia Rec: 1. Cont. current management; wean FiO2 then PEEP; will need trach once ventilator settings allow 2. TFs, GI PPx, SCDs, SubQ heparin 3. Diuresis; off HD; defer management of sodium to renal 4. Transfuse if H/H less than 7.0/21.0 5. Cont. current ventilator settings with permissive hypercapnea 6. Low grade temps and hypotension noted; repeat blood/sputum cultures; ID signed off 7. Receiving Levophed through Vascath pigtail; no indication to change line unless clear evidence of line associated bacteremia/sepsis develops 8. Patient has been in the ICU for 6 weeks or so, and has made absolutely no progress pulmonary-nunez such that today he is on 100% FiO2 and PEEP of +18; I do not believe he is going to survive this and prognosis is extremely poor; we need to re-address goals of care and code status with family CCt 31 minutes Subjective Date of service: 03/09/21 Principal diagnosis: Acute respiratory failure Interval history: Hypotensive on low-dose Levophed. Back on 100% FiO2 and PEEP of +18. Sedated on Fentanyl and Precedex. Active Medications Acetaminophen (Acetaminophen 325 Mg/10.15 Ml Oral Liqd Unit Dose) 650 mg FEEDTUBE Q6H PRN PRN Reason: Pain, Mild (1-3) Last Admin: 03/09/21 20:49 Dose: 650 mg Documented by: Lipase/Protease/Amylase (Lipase 10,500/Protease 25,000/Amylase 43,750 (Units) Dr Claudio) 1 each FEEDTUBE PRN PRN PRN Reason: For Clogged Feeding Tube Dextrose (Dextrose 50% In Water (25gm) 50 Ml Syringe) 50 ml IV Q30MIN PRN; Protocol PRN Reason: Hypoglycemia Fentanyl (Fentanyl 100 Mcg/2 Ml Inj) 50 mcg IV Q10MIN PRN PRN Reason: ANALGESIA Last Admin: 02/25/21 10:25 Dose: 50 mcg Documented by: Heparin Sodium (Porcine) (Heparin 10,000 Units/10 Ml Vial) 2,000 unit IV SAGRARIO PRN PRN Reason: hemodialysis Last Admin: 02/21/21 21:25 Dose: 2,000 unit Documented by: Heparin Sodium (Porcine) (Heparin 5,000 Unit/1 Ml Vial) 5,000 unit SUB-Q Q8HR CECE Last Admin: 03/09/21 21:34 Dose: 5,000 unit Documented by: Fentanyl Citrate (Fentanyl Drip Premix) 2,000 mcg in 100 mls @ 6.124 mls/hr IV TITR CE[facility]; Protocol Last Admin: 03/09/21 19:45 Dose: 3 mcg/kg/hr, 18.371 mls/hr Documented by: Propofol (Diprivan 10 Mg/Ml) 1,000 mg in 100 mls @ 3.674 mls/hr IV TITR CE[facility]; Protocol Last Titration: 02/21/21 08:30 Dose: 0 mcg/kg/min, 0 mls/hr Documented by: Dexmedetomidine HCl 1,000 mcg/ (Sodium Chloride) 260 mls @ 6.368 mls/hr IV TITRATE [facility]; Protocol Last Admin: 03/09/21 21:40 Dose: 1.4 mcg/kg/hr, 44.579 mls/hr Documented by: Sodium Chloride (Nacl 0.9%) 100 mls @ 999 mls/hr IV SAGRARIO PRN PRN Reason: Hypotension Norepinephrine (Levophed Drip 4 Mg/Ns 250 Ml) 4 mg in 250 mls @ 7.5 mls/hr IV T ITR [facility]; Protocol Last Titration: 03/09/21 22:03 Dose: 7 mcg/min, 26.25 mls/hr Documented by: Lansoprazole (Lansoprazole 30 Mg Solutab) 30 mg FEEDTUBE QDAY [facility] Last Admin: 03/09/21 10:32 Dose: 30 mg Documented by: Neomycin/Polymyxin/Bacitracin (Neomy 3.5 Mg/Bacit 400 Units/Poly B 5000 Units/Gm Oint Packet) 1 applic TP TID [facility] Last Admin: 03/09/21 19:28 Dose: 1 applic Documented by: Senna/Docusate Sodium (Sennosides/Docusate Sodium 8.6/50 Mg Tab) 1 tab PO BID [facility] Last Admin: 03/09/21 21:34 Dose: 1 tab Documented by: Simple Syrup (Simple Syrup 15 Ml) 15 ml FEEDTUBE PRN PRN PRN Reason: Hypoglycemia Last Admin: 02/21/21 21:24 Dose: 15 ml Documented by: Simple Syrup (Simple Syrup 15 Ml) 30 ml FEEDTUBE PRN PRN PRN Reason: Hypoglycemia Sodium Bicarbonate (Sodium Bicarbonate 325 Mg Tab) 325 mg FEEDTUBE PRN PRN PRN Reason: For Clogged Feeding Tube Sodium Hypochlorite (Sodium Hypochlorite, Dakin's 1/2 Strength (0.25%) 473 Ml Topical Soln) 1 applic TP BID [facility] Last Admin: 03/09/21 21:34 Dose: 1 applicatio Documented by: Objective Vital Signs - 12hr 03/09/21 03/09/21 03/09/21 05:00 05:30 06:00 Temperature Pulse Rate 106 H 105 H 105 H Respiratory 28 H 26 H 28 H Rate Blood Pressure 155/73 158/79 151/74 O2 Sat by Pulse 96 96 95 Oximetry 03/09/21 03/09/21 03/09/21 06:30 07:00 07:30 Temperature Pulse Rate 94 H 94 H 94 H Respiratory 28 H 28 H 28 H Rate Blood Pressure 104/57 122/62 115/61 O2 Sat by Pulse 93 92 94 Oximetry 03/09/21 03/09/21 03/09/21 08:00 08:30 08:45 Temperature 100.2 F H Pulse Rate 94 H 88 87 Respiratory 28 H 28 H Rate Blood Pressure 112/53 105/54 100/52 O2 Sat by Pulse 94 94 94 Oximetry 03/09/21 03/09/21 03/09/21 09:00 09:30 10:00 Temperature Pulse Rate 87 87 87 Respiratory 28 H 28 H 28 H Rate Blood Pressure 101/51 109/54 110/57 O2 Sat by Pulse 95 95 96 Oximetry 03/09/21 03/09/21 03/09/21 10:30 11:00 11:30 Temperature Pulse Rate 87 87 87 Respiratory 28 H 28 H 28 H Rate Blood Pressure 113/56 92/56 86/53 O2 Sat by Pulse 96 97 96 Oximetry 03/09/21 03/09/21 03/09/21 12:00 12:13 12:30 Temperature 99.6 F Pulse Rate 89 90 89 Respiratory 28 H 28 H Rate Blood Pressure 91/55 91/55 89/56 O2 Sat by Pulse 95 95 95 Oximetry 03/09/21 03/09/21 03/09/21 13:00 13:30 14:00 Temperature Pulse Rate 91 H 95 H 95 H Respiratory 28 H 28 H 28 H Rate Blood Pressure 80/53 123/62 128/57 O2 Sat by Pulse 95 96 97 Oximetry 03/09/21 03/09/21 03/09/21 14:30 15:00 15:30 Temperature Pulse Rate 95 H 99 H 103 H Respiratory 28 H 18 21 Rate Blood Pressure 120/52 116/65 92/53 O2 Sat by Pulse 94 88 87 Oximetry 03/09/21 03/09/21 16:00 16:40 Temperature 99.2 F Pulse Rate 94 H Respiratory Rate Blood Pressure 113/55 O2 Sat by Pulse 95 Oximetry Constitutional: other (sedated) Eyes: non-icteric ENT: other (orally intubated, critically ill) Neck: supple Effort: mildly labored (tachypneic) Ascultation: Bilateral: other (coarse BS bilaterally) Cardiovascular: regular rate and rhythm (no mrg) Gastrointestinal: normoactive bowel sounds Integumentary: normal Extremities: no cyanosis, pink and warm, anasarca Neurologic: unable to assess Psychiatric: other (unable to assess) CBC and BMP: 03/09/21 08:00 03/09/21 08:00 ABG, PT/INR, D-dimer: ABG ABG pH 7.256 (7.320-7.450) L 03/09/21 05:00 POC ABG pCO2 77.8 mmHg (32.0-48.0) H 03/09/21 05:00 ABG pCO2 72.4 mm Hg 03/06/21 17:45 POC ABG pO2 71.2 mmHg (83-108) L 03/09/21 05:00 ABG pO2 78.1 mm Hg (80.0-90.0) L 03/06/21 17:45 POC ABG HCO3 33.8 03/09/21 05:00 ABG O2 Saturation 93.2 (0-100) 03/09/21 05:00 PT/INR, D-dimer PT 14.6 Sec. (12.2-14.9) 03/03/21 Unknown INR 1.15 (0.87-1.13) H 03/03/21 Unknown D-Dimer 6536.84 ng/mlDDU (0-234) H 02/25/21 09:03 Abnormal lab findings: Abnormal Labs 01/22/21 01/22/21 01/22/21 22:39 22:57 22:57 WBC RBC Hgb Hct MCV MCH MCHC RDW Plt Count Lymph % (Auto) 6.6 L Lymph # (Auto) 0.5 L Seg Neutrophils % 87.6 H Seg Neuts % (Manual) Lymphocytes % (Manual) Monocytes % (Manual) Nucleated RBC % Seg Neutrophils # Seg Neutrophils # Man Lymphocytes # (Manual) Monocytes # (Manual) Eosinophils # (Manual) INR D-Dimer ABG pH POC ABG pCO2 POC ABG pO2 ABG pO2 ABG HCO3 ABG O2 Saturation ABG Base Excess ABG Hemoglobin ABG Oxyhemoglobin ABG Sodium ABG Potassium ABG Chloride ABG Glucose Oxyhemoglobin Carboxyhemoglobin Sodium 129 L Potassium 3.4 L Chloride 90.4 L Carbon Dioxide BUN 34 H Creatinine 1.5 H Glucose 146 H POC Glucose Hemoglobin A1c Lactic Acid Calcium 7.8 L Phosphorus Magnesium Ferritin Total Bilirubin AST 75 H ALT 57 H Lactate Dehydrogenase C-Reactive Protein Albumin 2.9 L Triglycerides Arterial Blood Glucose Arterial Blood Ionized Calcium Urine Creatinine 301.2 H Coronavirus (PCR) Crossmatch 01/22/21 01/22/21 01/22/21 22:57 22:57 22:57 WBC RBC Hgb Hct MCV MCH MCHC RDW Plt Count Lymph % (Auto) Lymph # (Auto) Seg Neutrophils % Seg Neuts % (Manual) Lymphocytes % (Manual) Monocytes % (Manual) Nucleated RBC % Seg Neutrophils # Seg Neutrophils # Man Lymphocytes # (Manual) Monocytes # (Manual) Eosinophils # (Manual) INR D-Dimer 1173.89 H ABG pH POC ABG pCO2 POC ABG pO2 ABG pO2 ABG HCO3 ABG O2 Saturation ABG Base Excess ABG Hemoglobin ABG Oxyhemoglobin ABG Sodium ABG Potassium ABG Chloride ABG Glucose Oxyhemoglobin Carboxyhemoglobin Sodium Potassium Chloride Carbon Dioxide BUN Creatinine Glucose 149 H POC Glucose Hemoglobin A1c Lactic Acid 2.10 H* Calcium Phosphorus Magnesium Ferritin Total Bilirubin AST ALT Lactate Dehydrogenase 685 H C-Reactive Protein 30.40 H Albumin Triglycerides Arterial Blood Glucose Arterial Blood Ionized Calcium Urine Creatinine Coronavirus (PCR) Crossmatch 01/22/21 01/23/21 01/23/21 22:57 08:41 10:01 WBC RBC Hgb Hct MCV MCH MCHC RDW Plt Count Lymph % (Auto) Lymph # (Auto) Seg Neutrophils % Seg Neuts % (Manual) Lymphocytes % (Manual) Monocytes % (Manual) Nucleated RBC % Seg Neutrophils # Seg Neutrophils # Man Lymphocytes # (Manual) Monocytes # (Manual) Eosinophils # (Manual) INR D-Dimer ABG pH POC ABG pCO2 POC ABG pO2 ABG pO2 ABG HCO3 ABG O2 Saturation ABG Base Excess ABG Hemoglobin ABG Oxyhemoglobin ABG Sodium ABG Potassium ABG Chloride ABG Glucose Oxyhemoglobin Carboxyhemoglobin Sodium 131 L Potassium Chloride 88.7 L Carbon Dioxide 18 L BUN 36 H Creatinine 1.6 H Glucose 147 H POC Glucose Hemoglobin A1c Lactic Acid Calcium 7.5 L Phosphorus Magnesium Ferritin 1207.0 H Total Bilirubin AST ALT Lactate Dehydrogenase C-Reactive Protein Albumin Triglycerides Arterial Blood Glucose Arterial Blood Ionized Calcium Urine Creatinine Coronavirus (PCR) Positive A Crossmatch 01/23/21 01/23/21 01/24/21 20:49 Unknown 00:10 WBC RBC Hgb Hct MCV MCH MCHC RDW Plt Count Lymph % (Auto) Lymph # (Auto) Seg Neutrophils % Seg Neuts % (Manual) Lymphocytes % (Manual) Monocytes % (Manual) Nucleated RBC % Seg Neutrophils # Seg Neutrophils # Man Lymphocytes # (Manual) Monocytes # (Manual) Eosinophils # (Manual) INR D-Dimer ABG pH POC ABG pCO2 POC ABG pO2 ABG pO2 165.4 H ABG HCO3 ABG O2 Saturation ABG Base Excess -2.5 L ABG Hemoglobin ABG Oxyhemoglobin ABG Sodium ABG Potassium ABG Chloride ABG Glucose Oxyhemoglobin Carboxyhemoglobin Sodium 130 L Potassium Chloride 91.0 L Carbon Dioxide 20 L BUN 52 H Creatinine 3.8 H D Glucose 150 H POC Glucose 125 H Hemoglobin A1c Lactic Acid Calcium 8.0 L Phosphorus Magnesium Ferritin Total Bilirubin AST 42 H ALT Lactate Dehydrogenase C-Reactive Protein Albumin 2.4 L Triglycerides Arterial Blood Glucose Arterial Blood Ionized Calcium Urine Creatinine Coronavirus (PCR) Crossmatch 01/24/21 01/24/21 01/24/21 05:05 05:05 05:05 WBC 14.0 H RBC Hgb Hct MCV 95 H MCH 33 H MCHC RDW Plt Count Lymph % (Auto) Lymph # (Auto) Seg Neutrophils % Seg Neuts % (Manual) 91.0 H Lymphocytes % (Manual) 4.0 L Monocytes % (Manual) Nucleated RBC % Seg Neutrophils # Seg Neutrophils # Man 12.7 H Lymphocytes # (Manual) 0.6 L Monocytes # (Manual) Eosinophils # (Manual) INR D-Dimer 6159.48 H ABG pH POC ABG pCO2 POC ABG pO2 ABG pO2 ABG HCO3 ABG O2 Saturation ABG Base Excess ABG Hemoglobin ABG Oxyhemoglobin ABG Sodium ABG Potassium ABG Chloride ABG Glucose Oxyhemoglobin Carboxyhemoglobin Sodium Potassium Chloride Carbon Dioxide BUN Creatinine Glucose POC Glucose Hemoglobin A1c Lactic Acid Calcium Phosphorus Magnesium Ferritin 1178.0 H Total Bilirubin AST ALT Lactate Dehydrogenase C-Reactive Protein Albumin Triglycerides Arterial Blood Glucose Arterial Blood Ionized Calcium Urine Creatinine Coronavirus (PCR) Crossmatch 01/24/21 01/24/21 01/24/21 05:05 05:05 05:05 WBC RBC Hgb Hct MCV MCH MCHC RDW Plt Count Lymph % (Auto) Lymph # (Auto) Seg Neutrophils % Seg Neuts % (Manual) Lymphocytes % (Manual) Monocytes % (Manual) Nucleated RBC % Seg Neutrophils # Seg Neutrophils # Man Lymphocytes # (Manual) Monocytes # (Manual) Eosinophils # (Manual) INR D-Dimer ABG pH POC ABG pCO2 POC ABG pO2 ABG pO2 ABG HCO3 ABG O2 Saturation ABG Base Excess ABG Hemoglobin ABG Oxyhemoglobin ABG Sodium ABG Potassium ABG Chloride ABG Glucose Oxyhemoglobin Carboxyhemoglobin Sodium 132 L Potassium Chloride 93.1 L Carbon Dioxide 21 L BUN 57 H Creatinine 3.7 H Glucose 133 H POC Glucose Hemoglobin A1c Lactic Acid 2.20 H* Calcium 7.7 L Phosphorus Magnesium Ferritin Total Bilirubin AST ALT Lactate Dehydrogenase 658 H C-Reactive Protein 33.20 H Albumin 2.4 L Triglycerides Arterial Blood Glucose Arterial Blood Ionized Calcium Urine Creatinine Coronavirus (PCR) Crossmatch 01/24/21 01/24/21 01/24/21 05:34 06:00 17:35 WBC RBC Hgb Hct MCV MCH MCHC RDW Plt Count Lymph % (Auto) Lymph # (Auto) Seg Neutrophils % Seg Neuts % (Manual) Lymphocytes % (Manual) Monocytes % (Manual) Nucleated RBC % Seg Neutrophils # Seg Neutrophils # Man Lymphocytes # (Manual) Monocytes # (Manual) Eosinophils # (Manual) INR D-Dimer ABG pH POC ABG pCO2 POC ABG pO2 ABG pO2 ABG HCO3 ABG O2 Saturation ABG Base Excess ABG Hemoglobin ABG Oxyhemoglobin ABG Sodium ABG Potassium ABG Chloride ABG Glucose Oxyhemoglobin Carboxyhemoglobin Sodium Potassium Chloride Carbon Dioxide BUN Creatinine Glucose POC Glucose 136 H 137 H Hemoglobin A1c Lactic Acid Calcium Phosphorus Magnesium 2.80 H Ferritin Total Bilirubin AST ALT Lactate Dehydrogenase C-Reactive Protein Albumin Triglycerides Arterial Blood Glucose Arterial Blood Ionized Calcium Urine Creatinine Coronavirus (PCR) Crossmatch 01/25/21 01/25/21 01/25/21 04:15 05:40 05:40 WBC RBC Hgb Hct MCV 95 H MCH 33 H MCHC 35 H RDW Plt Count Lymph % (Auto) Lymph # (Auto) Seg Neutrophils % Seg Neuts % (Manual) 95.0 H Lymphocytes % (Manual) 3.0 L Monocytes % (Manual) Nucleated RBC % Seg Neutrophils # Seg Neutrophils # Man 7.8 H Lymphocytes # (Manual) 0.2 L Monocytes # (Manual) Eosinophils # (Manual) INR D-Dimer ABG pH POC ABG pCO2 POC ABG pO2 63.2 L ABG pO2 ABG HCO3 ABG O2 Saturation ABG Base Excess ABG Hemoglobin ABG Oxyhemoglobin 89.6 L ABG Sodium ABG Potassium ABG Chloride ABG Glucose 165 H Oxyhemoglobin Carboxyhemoglobin 0.3 L Sodium Potassium Chloride Carbon Dioxide BUN 67 H Creatinine 3.4 H Glucose 153 H POC Glucose Hemoglobin A1c Lactic Acid Calcium 7.5 L Phosphorus Magnesium Ferritin Total Bilirubin 1.40 H AST 62 H ALT Lactate Dehydrogenase C-Reactive Protein Albumin 2.6 L Triglycerides Arterial Blood Glucose 165 H Arterial Blood Ionized Calcium 4.3 L Urine Creatinine Coronavirus (PCR) Crossmatch 01/25/21 01/25/21 01/25/21 05:59 12:00 17:17 WBC RBC Hgb Hct MCV MCH MCHC RDW Plt Count Lymph % (Auto) Lymph # (Auto) Seg Neutrophils % Seg Neuts % (Manual) Lymphocytes % (Manual) Monocytes % (Manual) Nucleated RBC % Seg Neutrophils # Seg Neutrophils # Man Lymphocytes # (Manual) Monocytes # (Manual) Eosinophils # (Manual) INR D-Dimer ABG pH POC ABG pCO2 POC ABG pO2 ABG pO2 ABG HCO3 ABG O2 Saturation ABG Base Excess ABG Hemoglobin ABG Oxyhemoglobin ABG Sodium ABG Potassium ABG Chloride ABG Glucose Oxyhemoglobin Carboxyhemoglobin Sodium Potassium Chloride Carbon Dioxide BUN Creatinine Glucose POC Glucose 140 H 143 H 149 H Hemoglobin A1c Lactic Acid Calcium Phosphorus Magnesium Ferritin Total Bilirubin AST ALT Lactate Dehydrogenase C-Reactive Protein Albumin Triglycerides Arterial Blood Glucose Arterial Blood Ionized Calcium Urine Creatinine Coronavirus (PCR) Crossmatch 01/25/21 01/26/21 01/26/21 23:41 03:43 05:46 WBC RBC Hgb Hct MCV MCH MCHC RDW Plt Count Lymph % (Auto) Lymph # (Auto) Seg Neutrophils % Seg Neuts % (Manual) Lymphocytes % (Manual) Monocytes % (Manual) Nucleated RBC % Seg Neutrophils # Seg Neutrophils # Man Lymphocytes # (Manual) Monocytes # (Manual) Eosinophils # (Manual) INR D-Dimer ABG pH POC ABG pCO2 POC ABG pO2 70.0 L ABG pO2 ABG HCO3 ABG O2 Saturation ABG Base Excess ABG Hemoglobin ABG Oxyhemoglobin 91.9 L ABG Sodium ABG Potassium ABG Chloride 109.0 H ABG Glucose 165 H Oxyhemoglobin Carboxyhemoglobin Sodium Potassium Chloride Carbon Dioxide BUN Creatinine Glucose POC Glucose 132 H 161 H Hemoglobin A1c Lactic Acid Calcium Phosphorus Magnesium Ferritin Total Bilirubin AST ALT Lactate Dehydrogenase C-Reactive Protein Albumin Triglycerides Arterial Blood Glucose 165 H Arterial Blood Ionized Calcium 4.5 L Urine Creatinine Coronavirus (PCR) Crossmatch 01/26/21 01/26/21 01/26/21 05:47 05:47 05:47 WBC RBC Hgb Hct 35.3 L MCV 96 H MCH 33 H MCHC RDW Plt Count Lymph % (Auto) Lymph # (Auto) Seg Neutrophils % Seg Neuts % (Manual) 96.0 H Lymphocytes % (Manual) 2.0 L Monocytes % (Manual) Nucleated RBC % Seg Neutrophils # Seg Neutrophils # Man Lymphocytes # (Manual) 0.1 L Monocytes # (Manual) Eosinophils # (Manual) INR D-Dimer > 38745 H ABG pH POC ABG pCO2 POC ABG pO2 ABG pO2 ABG HCO3 ABG O2 Saturation ABG Base Excess ABG Hemoglobin ABG Oxyhemoglobin ABG Sodium ABG Potassium ABG Chloride ABG Glucose Oxyhemoglobin Carboxyhemoglobin Sodium Potassium Chloride Carbon Dioxide BUN 57 H Creatinine 2.2 H Glucose 185 H POC Glucose Hemoglobin A1c Lactic Acid Calcium 8.1 L Phosphorus Magnesium Ferritin Total Bilirubin AST ALT Lactate Dehydrogenase C-Reactive Protein Albumin Triglycerides Arterial Blood Glucose Arterial Blood Ionized Calcium Urine Creatinine Coronavirus (PCR) Crossmatch 01/26/21 01/26/21 01/26/21 05:47 05:47 05:47 WBC RBC Hgb Hct MCV MCH MCHC RDW Plt Count Lymph % (Auto) Lymph # (Auto) Seg Neutrophils % Seg Neuts % (Manual) Lymphocytes % (Manual) Monocytes % (Manual) Nucleated RBC % Seg Neutrophils # Seg Neutrophils # Man Lymphocytes # (Manual) Monocytes # (Manual) Eosinophils # (Manual) INR D-Dimer ABG pH POC ABG pCO2 POC ABG pO2 ABG pO2 ABG HCO3 ABG O2 Saturation ABG Base Excess ABG Hemoglobin ABG Oxyhemoglobin ABG Sodium ABG Potassium ABG Chloride ABG Glucose Oxyhemoglobin Carboxyhemoglobin Sodium Potassium Chloride 107.1 H Carbon Dioxide BUN 56 H Creatinine 2.2 H Glucose 188 H POC Glucose Hemoglobin A1c Lactic Acid Calcium 8.0 L Phosphorus Magnesium Ferritin 1178.0 H Total Bilirubin 1.50 H AST ALT Lactate Dehydrogenase 588 H C-Reactive Protein 40.10 H Albumin 2.2 L Triglycerides Arterial Blood Glucose Arterial Blood Ionized Calcium Urine Creatinine Coronavirus (PCR) Crossmatch 01/26/21 01/26/21 01/26/21 11:34 18:17 23:20 WBC RBC Hgb Hct MCV MCH MCHC RDW Plt Count Lymph % (Auto) Lymph # (Auto) Seg Neutrophils % Seg Neuts % (Manual) Lymphocytes % (Manual) Monocytes % (Manual) Nucleated RBC % Seg Neutrophils # Seg Neutrophils # Man Lymphocytes # (Manual) Monocytes # (Manual) Eosinophils # (Manual) INR D-Dimer ABG pH POC ABG pCO2 POC ABG pO2 ABG pO2 ABG HCO3 ABG O2 Saturation ABG Base Excess ABG Hemoglobin ABG Oxyhemoglobin ABG Sodium ABG Potassium ABG Chloride ABG Glucose Oxyhemoglobin Carboxyhemoglobin Sodium Potassium Chloride Carbon Dioxide BUN Creatinine Glucose POC Glucose 129 H 205 H 155 H Hemoglobin A1c Lactic Acid Calcium Phosphorus Magnesium Ferritin Total Bilirubin AST ALT Lactate Dehydrogenase C-Reactive Protein Albumin Triglycerides Arterial Blood Glucose Arterial Blood Ionized Calcium Urine Creatinine Coronavirus (PCR) Crossmatch 01/27/21 01/27/21 01/27/21 02:45 05:29 05:29 WBC RBC 3.58 L Hgb 11.7 L Hct 34.9 L MCV 97 H MCH 33 H MCHC RDW Plt Count Lymph % (Auto) Lymph # (Auto) Seg Neutrophils % Seg Neuts % (Manual) 88.0 H Lymphocytes % (Manual) 7.0 L Monocytes % (Manual) Nucleated RBC % Seg Neutrophils # Seg Neutrophils # Man Lymphocytes # (Manual) 0.5 L Monocytes # (Manual) Eosinophils # (Manual) INR D-Dimer ABG pH 7.319 L POC ABG pCO2 50.7 H POC ABG pO2 63.0 L ABG pO2 ABG HCO3 ABG O2 Saturation ABG Base Excess ABG Hemoglobin ABG Oxyhemoglobin ABG Sodium 145.2 H ABG Potassium 5.1 H ABG Chloride 114.0 H ABG Glucose 178 H Oxyhemoglobin Carboxyhemoglobin Sodium Potassium Chloride Carbon Dioxide BUN Creatinine Glucose POC Glucose Hemoglobin A1c Lactic Acid Calcium Phosphorus Magnesium 4.00 H Ferritin Total Bilirubin AST ALT Lactate Dehydrogenase C-Reactive Protein Albumin Triglycerides Arterial Blood Glucose 178 H Arterial Blood Ionized Calcium Urine Creatinine Coronavirus (PCR) Crossmatch 01/27/21 01/27/21 01/27/21 05:29 05:29 05:31 WBC RBC Hgb Hct MCV MCH MCHC RDW Plt Count Lymph % (Auto) Lymph # (Auto) Seg Neutrophils % Seg Neuts % (Manual) Lymphocytes % (Manual) Monocytes % (Manual) Nucleated RBC % Seg Neutrophils # Seg Neutrophils # Man Lymphocytes # (Manual) Monocytes # (Manual) Eosinophils # (Manual) INR D-Dimer ABG pH POC ABG pCO2 POC ABG pO2 ABG pO2 ABG HCO3 ABG O2 Saturation ABG Base Excess ABG Hemoglobin ABG Oxyhemoglobin ABG Sodium ABG Potassium ABG Chloride ABG Glucose Oxyhemoglobin Carboxyhemoglobin Sodium Potassium 5.2 H Chloride 109.6 H Carbon Dioxide BUN 67 H Creatinine 2.8 H Glucose 195 H POC Glucose 176 H Hemoglobin A1c Lactic Acid Calcium 7.9 L Phosphorus Magnesium Ferritin Total Bilirubin AST ALT Lactate Dehydrogenase C-Reactive Protein Albumin Triglycerides 160 H Arterial Blood Glucose Arterial Blood Ionized Calcium Urine Creatinine Coronavirus (PCR) Crossmatch 01/27/21 01/27/21 01/27/21 11:27 18:08 23:30 WBC RBC Hgb Hct MCV MCH MCHC RDW Plt Count Lymph % (Auto) Lymph # (Auto) Seg Neutrophils % Seg Neuts % (Manual) Lymphocytes % (Manual) Monocytes % (Manual) Nucleated RBC % Seg Neutrophils # Seg Neutrophils # Man Lymphocytes # (Manual) Monocytes # (Manual) Eosinophils # (Manual) INR D-Dimer ABG pH POC ABG pCO2 POC ABG pO2 ABG pO2 ABG HCO3 ABG O2 Saturation ABG Base Excess ABG Hemoglobin ABG Oxyhemoglobin ABG Sodium ABG Potassium ABG Chloride ABG Glucose Oxyhemoglobin Carboxyhemoglobin Sodium Potassium Chloride Carbon Dioxide BUN Creatinine Glucose POC Glucose 189 H 212 H 175 H Hemoglobin A1c Lactic Acid Calcium Phosphorus Magnesium Ferritin Total Bilirubin AST ALT Lactate Dehydrogenase C-Reactive Protein Albumin Triglycerides Arterial Blood Glucose Arterial Blood Ionized Calcium Urine Creatinine Coronavirus (PCR) Crossmatch 01/28/21 01/28/21 01/28/21 03:58 04:00 04:00 WBC RBC Hgb Hct MCV MCH MCHC RDW Plt Count Lymph % (Auto) Lymph # (Auto) Seg Neutrophils % Seg Neuts % (Manual) Lymphocytes % (Manual) Monocytes % (Manual) Nucleated RBC % Seg Neutrophils # Seg Neutrophils # Man Lymphocytes # (Manual) Monocytes # (Manual) Eosinophils # (Manual) INR D-Dimer > 21298 H ABG pH POC ABG pCO2 POC ABG pO2 52.9 L ABG pO2 ABG HCO3 ABG O2 Saturation ABG Base Excess ABG Hemoglobin ABG Oxyhemoglobin 84.1 L ABG Sodium 148.9 H ABG Potassium ABG Chloride 117.0 H ABG Glucose 194 H Oxyhemoglobin Carboxyhemoglobin Sodium Potassium Chloride Carbon Dioxide BUN Creatinine Glucose POC Glucose Hemoglobin A1c Lactic Acid Calcium Phosphorus Magnesium Ferritin Total Bilirubin AST ALT Lactate Dehydrogenase 679 H C-Reactive Protein 17.10 H Albumin Triglycerides Arterial Blood Glucose 194 H Arterial Blood Ionized Calcium Urine Creatinine Coronavirus (PCR) Crossmatch 01/28/21 01/28/21 01/28/21 04:00 05:00 06:00 WBC RBC 3.59 L Hgb 11.6 L Hct 34.8 L MCV 97 H MCH MCHC RDW Plt Count Lymph % (Auto) Lymph # (Auto) Seg Neutrophils % Seg Neuts % (Manual) 96.0 H Lymphocytes % (Manual) 3.0 L Monocytes % (Manual) Nucleated RBC % Seg Neutrophils # Seg Neutrophils # Man Lymphocytes # (Manual) 0.2 L Monocytes # (Manual) Eosinophils # (Manual) INR D-Dimer ABG pH POC ABG pCO2 POC ABG pO2 ABG pO2 ABG HCO3 ABG O2 Saturation ABG Base Excess ABG Hemoglobin ABG Oxyhemoglobin ABG Sodium ABG Potassium ABG Chloride ABG Glucose Oxyhemoglobin Carboxyhemoglobin Sodium Potassium Chloride Carbon Dioxide BUN Creatinine Glucose POC Glucose 159 H Hemoglobin A1c Lactic Acid Calcium Phosphorus Magnesium Ferritin 798.0 H Total Bilirubin AST ALT Lactate Dehydrogenase C-Reactive Protein Albumin Triglycerides Arterial Blood Glucose Arterial Blood Ionized Calcium Urine Creatinine Coronavirus (PCR) Crossmatch 01/28/21 01/28/21 01/28/21 06:00 06:00 08:12 WBC RBC Hgb Hct MCV MCH MCHC RDW Plt Count Lymph % (Auto) Lymph # (Auto) Seg Neutrophils % Seg Neuts % (Manual) Lymphocytes % (Manual) Monocytes % (Manual) Nucleated RBC % Seg Neutrophils # Seg Neutrophils # Man Lymphocytes # (Manual) Monocytes # (Manual) Eosinophils # (Manual) INR D-Dimer ABG pH POC ABG pCO2 POC ABG pO2 ABG pO2 ABG HCO3 ABG O2 Saturation ABG Base Excess ABG Hemoglobin ABG Oxyhemoglobin ABG Sodium ABG Potassium ABG Chloride ABG Glucose Oxyhemoglobin Carboxyhemoglobin Sodium Potassium Chloride 111.9 H Carbon Dioxide BUN 59 H Creatinine 2.2 H Glucose 189 H POC Glucose 181 H Hemoglobin A1c Lactic Acid Calcium 8.1 L Phosphorus Magnesium 3.20 H Ferritin Total Bilirubin AST ALT Lactate Dehydrogenase C-Reactive Protein Albumin Triglycerides Arterial Blood Glucose Arterial Blood Ionized Calcium Urine Creatinine Coronavirus (PCR) Crossmatch 01/28/21 01/28/21 01/28/21 12:03 16:43 23:51 WBC RBC Hgb Hct MCV MCH MCHC RDW Plt Count Lymph % (Auto) Lymph # (Auto) Seg Neutrophils % Seg Neuts % (Manual) Lymphocytes % (Manual) Monocytes % (Manual) Nucleated RBC % Seg Neutrophils # Seg Neutrophils # Man Lymphocytes # (Manual) Monocytes # (Manual) Eosinophils # (Manual) INR D-Dimer ABG pH POC ABG pCO2 POC ABG pO2 ABG pO2 ABG HCO3 ABG O2 Saturation ABG Base Excess ABG Hemoglobin ABG Oxyhemoglobin ABG Sodium ABG Potassium ABG Chloride ABG Glucose Oxyhemoglobin Carboxyhemoglobin Sodium Potassium Chloride Carbon Dioxide BUN Creatinine Glucose POC Glucose 164 H 198 H 196 H Hemoglobin A1c Lactic Acid Calcium Phosphorus Magnesium Ferritin Total Bilirubin AST ALT Lactate Dehydrogenase C-Reactive Protein Albumin Triglycerides Arterial Blood Glucose Arterial Blood Ionized Calcium Urine Creatinine Coronavirus (PCR) Crossmatch 01/29/21 01/29/21 01/29/21 05:00 05:23 06:00 WBC RBC Hgb Hct MCV MCH MCHC RDW Plt Count Lymph % (Auto) Lymph # (Auto) Seg Neutrophils % Seg Neuts % (Manual) Lymphocytes % (Manual) Monocytes % (Manual) Nucleated RBC % Seg Neutrophils # Seg Neutrophils # Man Lymphocytes # (Manual) Monocytes # (Manual) Eosinophils # (Manual) INR D-Dimer ABG pH 7.119 L POC ABG pCO2 87.1 H POC ABG pO2 ABG pO2 ABG HCO3 ABG O2 Saturation ABG Base Excess ABG Hemoglobin ABG Oxyhemoglobin ABG Sodium 152.5 H ABG Potassium 5.7 H ABG Chloride 120.0 H ABG Glucose 217 H Oxyhemoglobin Carboxyhemoglobin Sodium 151 H Potassium 5.9 H D Chloride 117.8 H Carbon Dioxide BUN 54 H Creatinine 2.2 H Glucose 208 H POC Glucose 180 H Hemoglobin A1c Lactic Acid Calcium 7.9 L Phosphorus Magnesium Ferritin Total Bilirubin AST ALT Lactate Dehydrogenase C-Reactive Protein Albumin Triglycerides Arterial Blood Glucose 217 H Arterial Blood Ionized Calcium Urine Creatinine Coronavirus (PCR) Crossmatch 01/29/21 01/29/21 01/29/21 12:29 17:28 18:05 WBC RBC Hgb Hct MCV MCH MCHC RDW Plt Count Lymph % (Auto) Lymph # (Auto) Seg Neutrophils % Seg Neuts % (Manual) Lymphocytes % (Manual) Monocytes % (Manual) Nucleated RBC % Seg Neutrophils # Seg Neutrophils # Man Lymphocytes # (Manual) Monocytes # (Manual) Eosinophils # (Manual) INR D-Dimer ABG pH POC ABG pCO2 POC ABG pO2 ABG pO2 ABG HCO3 ABG O2 Saturation ABG Base Excess ABG Hemoglobin ABG Oxyhemoglobin ABG Sodium ABG Potassium ABG Chloride ABG Glucose Oxyhemoglobin Carboxyhemoglobin Sodium 151 H Potassium 5.5 H Chloride 118.2 H Carbon Dioxide BUN 52 H Creatinine 2.2 H Glucose 224 H POC Glucose 181 H 203 H Hemoglobin A1c Lactic Acid Calcium 8.0 L Phosphorus Magnesium Ferritin Total Bilirubin AST ALT Lactate Dehydrogenase C-Reactive Protein Albumin Triglycerides Arterial Blood Glucose Arterial Blood Ionized Calcium Urine Creatinine Coronavirus (PCR) Crossmatch 01/29/21 01/29/21 01/29/21 18:13 23:34 Unknown WBC RBC Hgb Hct MCV 101 H MCH MCHC RDW 15.7 H Plt Count Lymph % (Auto) Lymph # (Auto) Seg Neutrophils % Seg Neuts % (Manual) 95.0 H Lymphocytes % (Manual) 3.0 L Monocytes % (Manual) Nucleated RBC % Seg Neutrophils # Seg Neutrophils # Man 8.0 H Lymphocytes # (Manual) 0.3 L Monocytes # (Manual) Eosinophils # (Manual) INR D-Dimer ABG pH 7.223 L POC ABG pCO2 64.8 H POC ABG pO2 63.6 L ABG pO2 ABG HCO3 ABG O2 Saturation ABG Base Excess ABG Hemoglobin ABG Oxyhemoglobin 89.4 L ABG Sodium 152.9 H ABG Potassium 5.3 H ABG Chloride 121.0 H ABG Glucose 227 H Oxyhemoglobin Carboxyhemoglobin Sodium Potassium Chloride Carbon Dioxide BUN Creatinine Glucose POC Glucose 198 H Hemoglobin A1c Lactic Acid Calcium Phosphorus Magnesium Ferritin Total Bilirubin AST ALT Lactate Dehydrogenase C-Reactive Protein Albumin Triglycerides Arterial Blood Glucose 227 H Arterial Blood Ionized Calcium Urine Creatinine Coronavirus (PCR) Crossmatch 01/30/21 01/30/21 01/30/21 04:00 04:00 04:00 WBC RBC Hgb Hct MCV MCH MCHC RDW Plt Count Lymph % (Auto) Lymph # (Auto) Seg Neutrophils % Seg Neuts % (Manual) Lymphocytes % (Manual) Monocytes % (Manual) Nucleated RBC % Seg Neutrophils # Seg Neutrophils # Man Lymphocytes # (Manual) Monocytes # (Manual) Eosinophils # (Manual) INR D-Dimer > 82396 H ABG pH POC ABG pCO2 POC ABG pO2 ABG pO2 ABG HCO3 ABG O2 Saturation ABG Base Excess ABG Hemoglobin ABG Oxyhemoglobin ABG Sodium ABG Potassium ABG Chloride ABG Glucose Oxyhemoglobin Carboxyhemoglobin Sodium Potassium Chloride Carbon Dioxide BUN Creatinine Glucose 234 H POC Glucose Hemoglobin A1c Lactic Acid Calcium Phosphorus Magnesium Ferritin 763.9 H Total Bilirubin AST ALT Lactate Dehydrogenase 424 H C-Reactive Protein 23.90 H Albumin Triglycerides Arterial Blood Glucose Arterial Blood Ionized Calcium Urine Creatinine Coronavirus (PCR) Crossmatch 01/30/21 01/30/21 01/30/21 04:24 05:00 05:16 WBC RBC 3.57 L Hgb 11.3 L Hct 35.4 L MCV 99 H MCH MCHC RDW 15.6 H Plt Count Lymph % (Auto) Lymph # (Auto) Seg Neutrophils % Seg Neuts % (Manual) 97.0 H Lymphocytes % (Manual) 1.0 L Monocytes % (Manual) Nucleated RBC % Seg Neutrophils # Seg Neutrophils # Man 8.6 H Lymphocytes # (Manual) 0.1 L Monocytes # (Manual) Eosinophils # (Manual) INR D-Dimer ABG pH 7.235 L POC ABG pCO2 69.7 H POC ABG pO2 61.0 L ABG pO2 ABG HCO3 ABG O2 Saturation ABG Base Excess ABG Hemoglobin ABG Oxyhemoglobin 89 L ABG Sodium 154.2 H ABG Potassium 5.4 H ABG Chloride 121.0 H ABG Glucose 247 H Oxyhemoglobin Carboxyhemoglobin Sodium Potassium Chloride Carbon Dioxide BUN Creatinine Glucose POC Glucose 238 H Hemoglobin A1c Lactic Acid Calcium Phosphorus Magnesium Ferritin Total Bilirubin AST ALT Lactate Dehydrogenase C-Reactive Protein Albumin Triglycerides Arterial Blood Glucose 247 H Arterial Blood Ionized Calcium Urine Creatinine Coronavirus (PCR) Crossmatch 01/30/21 01/30/21 01/30/21 06:00 11:28 12:00 WBC RBC Hgb Hct MCV MCH MCHC RDW Plt Count Lymph % (Auto) Lymph # (Auto) Seg Neutrophils % Seg Neuts % (Manual) Lymphocytes % (Manual) Monocytes % (Manual) Nucleated RBC % Seg Neutrophils # Seg Neutrophils # Man Lymphocytes # (Manual) Monocytes # (Manual) Eosinophils # (Manual) INR D-Dimer ABG pH POC ABG pCO2 POC ABG pO2 ABG pO2 ABG HCO3 ABG O2 Saturation ABG Base Excess ABG Hemoglobin ABG Oxyhemoglobin ABG Sodium ABG Potassium ABG Chloride ABG Glucose Oxyhemoglobin Carboxyhemoglobin Sodium 152 H Potassium 5.3 H Chloride 120.5 H Carbon Dioxide BUN 50 H Creatinine 2.3 H Glucose 239 H POC Glucose 153 H Hemoglobin A1c Lactic Acid Calcium 8.2 L Phosphorus Magnesium 2.60 H Ferritin Total Bilirubin AST ALT Lactate Dehydrogenase C-Reactive Protein Albumin Triglycerides 293 H Arterial Blood Glucose Arterial Blood Ionized Calcium Urine Creatinine 53.0 H Coronavirus (PCR) Crossmatch 01/30/21 01/30/21 01/31/21 18:49 23:06 04:00 WBC RBC Hgb Hct MCV MCH MCHC RDW Plt Count Lymph % (Auto) Lymph # (Auto) Seg Neutrophils % Seg Neuts % (Manual) Lymphocytes % (Manual) Monocytes % (Manual) Nucleated RBC % Seg Neutrophils # Seg Neutrophils # Man Lymphocytes # (Manual) Monocytes # (Manual) Eosinophils # (Manual) INR D-Dimer ABG pH POC ABG pCO2 POC ABG pO2 ABG pO2 ABG HCO3 ABG O2 Saturation ABG Base Excess ABG Hemoglobin ABG Oxyhemoglobin ABG Sodium ABG Potassium ABG Chloride ABG Glucose Oxyhemoglobin Carboxyhemoglobin Sodium 156 H Potassium 5.9 H Chloride 122.6 H Carbon Dioxide BUN 61 H Creatinine 3.2 H Glucose 205 H POC Glucose 220 H 192 H Hemoglobin A1c Lactic Acid Calcium 8.0 L Phosphorus Magnesium Ferritin Total Bilirubin AST ALT Lactate Dehydrogenase C-Reactive Protein Albumin Triglycerides Arterial Blood Glucose Arterial Blood Ionized Calcium Urine Creatinine Coronavirus (PCR) Crossmatch 01/31/21 01/31/21 01/31/21 04:40 05:17 11:33 WBC RBC Hgb Hct MCV MCH MCHC RDW Plt Count Lymph % (Auto) Lymph # (Auto) Seg Neutrophils % Seg Neuts % (Manual) Lymphocytes % (Manual) Monocytes % (Manual) Nucleated RBC % Seg Neutrophils # Seg Neutrophils # Man Lymphocytes # (Manual) Monocytes # (Manual) Eosinophils # (Manual) INR D-Dimer ABG pH 7.161 L* POC ABG pCO2 POC ABG pO2 ABG pO2 142.2 H ABG HCO3 28.3 H ABG O2 Saturation ABG Base Excess -3.2 L ABG Hemoglobin ABG Oxyhemoglobin ABG Sodium ABG Potassium ABG Chloride ABG Glucose Oxyhemoglobin Carboxyhemoglobin Sodium Potassium Chloride Carbon Dioxide BUN Creatinine Glucose POC Glucose 200 H 167 H Hemoglobin A1c Lactic Acid Calcium Phosphorus Magnesium Ferritin Total Bilirubin AST ALT Lactate Dehydrogenase C-Reactive Protein Albumin Triglycerides Arterial Blood Glucose Arterial Blood Ionized Calcium Urine Creatinine Coronavirus (PCR) Crossmatch 01/31/21 01/31/21 01/31/21 14:00 17:10 23:24 WBC RBC Hgb Hct MCV MCH MCHC RDW Plt Count Lymph % (Auto) Lymph # (Auto) Seg Neutrophils % Seg Neuts % (Manual) Lymphocytes % (Manual) Monocytes % (Manual) Nucleated RBC % Seg Neutrophils # Seg Neutrophils # Man Lymphocytes # (Manual) Monocytes # (Manual) Eosinophils # (Manual) INR D-Dimer ABG pH 7.205 L POC ABG pCO2 POC ABG pO2 ABG pO2 90.9 H ABG HCO3 26.5 H ABG O2 Saturation ABG Base Excess -2.7 L ABG Hemoglobin 12.3 L ABG Oxyhemoglobin ABG Sodium ABG Potassium ABG Chloride ABG Glucose Oxyhemoglobin 93.9 L Carboxyhemoglobin Sodium Potassium Chloride Carbon Dioxide BUN Creatinine Glucose POC Glucose 190 H 203 H Hemoglobin A1c Lactic Acid Calcium Phosphorus Magnesium Ferritin Total Bilirubin AST ALT Lactate Dehydrogenase C-Reactive Protein Albumin Triglycerides Arterial Blood Glucose Arterial Blood Ionized Calcium Urine Creatinine Coronavirus (PCR) Crossmatch 02/01/21 02/01/21 02/01/21 05:15 06:22 10:20 WBC RBC Hgb Hct MCV MCH MCHC RDW Plt Count Lymph % (Auto) Lymph # (Auto) Seg Neutrophils % Seg Neuts % (Manual) Lymphocytes % (Manual) Monocytes % (Manual) Nucleated RBC % Seg Neutrophils # Seg Neutrophils # Man Lymphocytes # (Manual) Monocytes # (Manual) Eosinophils # (Manual) INR D-Dimer ABG pH 6.920 L* 7.116 L* POC ABG pCO2 POC ABG pO2 ABG pO2 102.9 H 113.1 H ABG HCO3 28.2 H ABG O2 Saturation 92.9 L ABG Base Excess -6.9 L -5.8 L ABG Hemoglobin 11.6 L 9.5 L ABG Oxyhemoglobin ABG Sodium ABG Potassium ABG Chloride ABG Glucose Oxyhemoglobin 90.5 L 94.6 L Carboxyhemoglobin Sodium Potassium Chloride Carbon Dioxide BUN Creatinine Glucose POC Glucose 221 H Hemoglobin A1c Lactic Acid Calcium Phosphorus Magnesium Ferritin Total Bilirubin AST ALT Lactate Dehydrogenase C-Reactive Protein Albumin Triglycerides Arterial Blood Glucose Arterial Blood Ionized Calcium Urine Creatinine Coronavirus (PCR) Crossmatch 02/01/21 02/01/21 02/01/21 11:12 12:35 16:00 WBC RBC Hgb Hct MCV MCH MCHC RDW Plt Count Lymph % (Auto) Lymph # (Auto) Seg Neutrophils % Seg Neuts % (Manual) Lymphocytes % (Manual) Monocytes % (Manual) Nucleated RBC % Seg Neutrophils # Seg Neutrophils # Man Lymphocytes # (Manual) Monocytes # (Manual) Eosinophils # (Manual) INR D-Dimer ABG pH 7.155 L* POC ABG pCO2 POC ABG pO2 ABG pO2 94.6 H ABG HCO3 ABG O2 Saturation ABG Base Excess -6.5 L ABG Hemoglobin 13.1 L ABG Oxyhemoglobin ABG Sodium ABG Potassium ABG Chloride ABG Glucose Oxyhemoglobin 93.7 L Carboxyhemoglobin Sodium 155 H Potassium 5.1 H Chloride 120.5 H Carbon Dioxide BUN 90 H Creatinine 6.1 H D Glucose 238 H POC Glucose 207 H Hemoglobin A1c Lactic Acid Calcium 7.4 L Phosphorus Magnesium Ferritin Total Bilirubin AST ALT Lactate Dehydrogenase C-Reactive Protein Albumin Triglycerides Arterial Blood Glucose Arterial Blood Ionized Calcium Urine Creatinine Coronavirus (PCR) Crossmatch 02/01/21 02/01/21 02/02/21 17:10 23:47 04:04 WBC RBC 3.02 L Hgb 9.8 L Hct 30.7 L MCV 102 H MCH MCHC RDW 15.6 H Plt Count Lymph % (Auto) 4.2 L Lymph # (Auto) 0.3 L Seg Neutrophils % Seg Neuts % (Manual) Lymphocytes % (Manual) Monocytes % (Manual) Nucleated RBC % Seg Neutrophils # Seg Neutrophils # Man Lymphocytes # (Manual) Monocytes # (Manual) Eosinophils # (Manual) INR D-Dimer ABG pH POC ABG pCO2 POC ABG pO2 ABG pO2 ABG HCO3 ABG O2 Saturation ABG Base Excess ABG Hemoglobin ABG Oxyhemoglobin ABG Sodium ABG Potassium ABG Chloride ABG Glucose Oxyhemoglobin Carboxyhemoglobin Sodium Potassium Chloride Carbon Dioxide BUN Creatinine Glucose POC Glucose 238 H 235 H Hemoglobin A1c Lactic Acid Calcium Phosphorus Magnesium Ferritin Total Bilirubin AST ALT Lactate Dehydrogenase C-Reactive Protein Albumin Triglycerides Arterial Blood Glucose Arterial Blood Ionized Calcium Urine Creatinine Coronavirus (PCR) Crossmatch 02/02/21 02/02/21 02/02/21 05:18 05:35 11:28 WBC RBC Hgb Hct MCV MCH MCHC RDW Plt Count Lymph % (Auto) Lymph # (Auto) Seg Neutrophils % Seg Neuts % (Manual) Lymphocytes % (Manual) Monocytes % (Manual) Nucleated RBC % Seg Neutrophils # Seg Neutrophils # Man Lymphocytes # (Manual) Monocytes # (Manual) Eosinophils # (Manual) INR D-Dimer ABG pH 7.195 L* POC ABG pCO2 POC ABG pO2 ABG pO2 72.5 L ABG HCO3 ABG O2 Saturation 91.2 L ABG Base Excess -5.3 L ABG Hemoglobin 6.0 L ABG Oxyhemoglobin ABG Sodium ABG Potassium ABG Chloride ABG Glucose Oxyhemoglobin 89.1 L Carboxyhemoglobin Sodium Potassium Chloride 110.4 H Carbon Dioxide BUN 92 H Creatinine Glucose POC Glucose 239 H Hemoglobin A1c Lactic Acid Calcium Phosphorus Magnesium Ferritin Total Bilirubin AST ALT Lactate Dehydrogenase C-Reactive Protein Albumin Triglycerides Arterial Blood Glucose Arterial Blood Ionized Calcium Urine Creatinine Coronavirus (PCR) Crossmatch 02/02/21 02/02/21 02/02/21 11:53 16:00 18:04 WBC RBC Hgb Hct MCV MCH MCHC RDW Plt Count Lymph % (Auto) Lymph # (Auto) Seg Neutrophils % Seg Neuts % (Manual) Lymphocytes % (Manual) Monocytes % (Manual) Nucleated RBC % Seg Neutrophils # Seg Neutrophils # Man Lymphocytes # (Manual) Monocytes # (Manual) Eosinophils # (Manual) INR D-Dimer ABG pH POC ABG pCO2 POC ABG pO2 ABG pO2 ABG HCO3 ABG O2 Saturation ABG Base Excess ABG Hemoglobin ABG Oxyhemoglobin ABG Sodium ABG Potassium ABG Chloride ABG Glucose Oxyhemoglobin Carboxyhemoglobin Sodium Potassium Chloride Carbon Dioxide BUN Creatinine Glucose POC Glucose 248 H 199 H Hemoglobin A1c 6.3 H Lactic Acid Calcium Phosphorus Magnesium Ferritin Total Bilirubin AST ALT Lactate Dehydrogenase C-Reactive Protein Albumin Triglycerides Arterial Blood Glucose Arterial Blood Ionized Calcium Urine Creatinine Coronavirus (PCR) Crossmatch 02/02/21 02/03/21 02/03/21 23:31 03:12 04:10 WBC RBC 3.06 L Hgb 9.7 L Hct 30.4 L MCV 99 H MCH MCHC RDW 15.3 H Plt Count Lymph % (Auto) 6.1 L Lymph # (Auto) 0.5 L Seg Neutrophils % 86.1 H Seg Neuts % (Manual) Lymphocytes % (Manual) Monocytes % (Manual) Nucleated RBC % Seg Neutrophils # Seg Neutrophils # Man Lymphocytes # (Manual) Monocytes # (Manual) Eosinophils # (Manual) INR D-Dimer ABG pH 7.199 L POC ABG pCO2 48.3 H POC ABG pO2 68.3 L ABG pO2 ABG HCO3 ABG O2 Saturation ABG Base Excess ABG Hemoglobin 10.2 L ABG Oxyhemoglobin 89.2 L ABG Sodium 155.0 H ABG Potassium 4.6 H ABG Chloride 121.0 H ABG Glucose 166 H Oxyhemoglobin Carboxyhemoglobin 0.3 L Sodium Potassium Chloride Carbon Dioxide BUN Creatinine Glucose POC Glucose 200 H Hemoglobin A1c Lactic Acid Calcium Phosphorus Magnesium Ferritin Total Bilirubin AST ALT Lactate Dehydrogenase C-Reactive Protein Albumin Triglycerides Arterial Blood Glucose 166 H Arterial Blood Ionized Calcium 4.1 L Urine Creatinine Coronavirus (PCR) Crossmatch 02/03/21 02/03/21 02/03/21 04:10 05:34 11:51 WBC RBC Hgb Hct MCV MCH MCHC RDW Plt Count Lymph % (Auto) Lymph # (Auto) Seg Neutrophils % Seg Neuts % (Manual) Lymphocytes % (Manual) Monocytes % (Manual) Nucleated RBC % Seg Neutrophils # Seg Neutrophils # Man Lymphocytes # (Manual) Monocytes # (Manual) Eosinophils # (Manual) INR D-Dimer ABG pH POC ABG pCO2 POC ABG pO2 ABG pO2 ABG HCO3 ABG O2 Saturation ABG Base Excess ABG Hemoglobin ABG Oxyhemoglobin ABG Sodium ABG Potassium ABG Chloride ABG Glucose Oxyhemoglobin Carboxyhemoglobin Sodium 154 H D Potassium Chloride 116.7 H Carbon Dioxide 20 L BUN 130 H Creatinine 9.2 H D Glucose 160 H POC Glucose 130 H 154 H Hemoglobin A1c Lactic Acid Calcium 6.7 L Phosphorus 8.60 H Magnesium Ferritin Total Bilirubin AST ALT Lactate Dehydrogenase C-Reactive Protein Albumin Triglycerides Arterial Blood Glucose Arterial Blood Ionized Calcium Urine Creatinine Coronavirus (PCR) Crossmatch 02/03/21 02/03/21 02/04/21 16:49 23:22 03:48 WBC RBC Hgb Hct MCV MCH MCHC RDW Plt Count Lymph % (Auto) Lymph # (Auto) Seg Neutrophils % Seg Neuts % (Manual) Lymphocytes % (Manual) Monocytes % (Manual) Nucleated RBC % Seg Neutrophils # Seg Neutrophils # Man Lymphocytes # (Manual) Monocytes # (Manual) Eosinophils # (Manual) INR D-Dimer ABG pH 7.201 L POC ABG pCO2 54.5 H POC ABG pO2 74.0 L ABG pO2 ABG HCO3 ABG O2 Saturation ABG Base Excess ABG Hemoglobin 9.7 L ABG Oxyhemoglobin 91.1 L ABG Sodium 146.2 H ABG Potassium ABG Chloride 114.0 H ABG Glucose 155 H Oxyhemoglobin Carboxyhemoglobin Sodium Potassium Chloride Carbon Dioxide BUN Creatinine Glucose POC Glucose 164 H 152 H Hemoglobin A1c Lactic Acid Calcium Phosphorus Magnesium Ferritin Total Bilirubin AST ALT Lactate Dehydrogenase C-Reactive Protein Albumin Triglycerides Arterial Blood Glucose 155 H Arterial Blood Ionized Calcium 3.9 L Urine Creatinine Coronavirus (PCR) Crossmatch 02/04/21 02/04/21 02/04/21 04:45 04:45 04:45 WBC RBC 2.75 L Hgb 9.1 L Hct 26.9 L MCV 98 H MCH 33 H MCHC RDW Plt Count Lymph % (Auto) 6.8 L Lymph # (Auto) 0.5 L Seg Neutrophils % 87.2 H Seg Neuts % (Manual) Lymphocytes % (Manual) Monocytes % (Manual) Nucleated RBC % Seg Neutrophils # Seg Neutrophils # Man Lymphocytes # (Manual) Monocytes # (Manual) Eosinophils # (Manual) INR D-Dimer ABG pH POC ABG pCO2 POC ABG pO2 ABG pO2 ABG HCO3 ABG O2 Saturation ABG Base Excess ABG Hemoglobin ABG Oxyhemoglobin ABG Sodium ABG Potassium ABG Chloride ABG Glucose Oxyhemoglobin Carboxyhemoglobin Sodium 149 H Potassium Chloride 111.5 H Carbon Dioxide BUN 99 H Creatinine 8.5 H Glucose 139 H POC Glucose Hemoglobin A1c Lactic Acid Calcium 6.8 L Phosphorus 8.40 H Magnesium Ferritin Total Bilirubin AST ALT Lactate Dehydrogenase C-Reactive Protein Albumin Triglycerides Arterial Blood Glucose Arterial Blood Ionized Calcium Urine Creatinine Coronavirus (PCR) Crossmatch 02/04/21 02/04/21 02/04/21 06:05 11:44 18:00 WBC RBC Hgb Hct MCV MCH MCHC RDW Plt Count Lymph % (Auto) Lymph # (Auto) Seg Neutrophils % Seg Neuts % (Manual) Lymphocytes % (Manual) Monocytes % (Manual) Nucleated RBC % Seg Neutrophils # Seg Neutrophils # Man Lymphocytes # (Manual) Monocytes # (Manual) Eosinophils # (Manual) INR D-Dimer ABG pH POC ABG pCO2 POC ABG pO2 ABG pO2 ABG HCO3 ABG O2 Saturation ABG Base Excess ABG Hemoglobin ABG Oxyhemoglobin ABG Sodium ABG Potassium ABG Chloride ABG Glucose Oxyhemoglobin Carboxyhemoglobin Sodium Potassium Chloride Carbon Dioxide BUN Creatinine Glucose POC Glucose 138 H 129 H 163 H Hemoglobin A1c Lactic Acid Calcium Phosphorus Magnesium Ferritin Total Bilirubin AST ALT Lactate Dehydrogenase C-Reactive Protein Albumin Triglycerides Arterial Blood Glucose Arterial Blood Ionized Calcium Urine Creatinine Coronavirus (PCR) Crossmatch 02/04/21 02/05/21 02/05/21 23:48 01:50 01:50 WBC RBC 2.43 L Hgb 8.3 L Hct 23.6 L MCV 97 H MCH 34 H MCHC 35 H RDW Plt Count 137 L Lymph % (Auto) 8.4 L Lymph # (Auto) 0.6 L Seg Neutrophils % 86.1 H Seg Neuts % (Manual) Lymphocytes % (Manual) Monocytes % (Manual) Nucleated RBC % Seg Neutrophils # Seg Neutrophils # Man Lymphocytes # (Manual) Monocytes # (Manual) Eosinophils # (Manual) INR D-Dimer ABG pH POC ABG pCO2 POC ABG pO2 ABG pO2 ABG HCO3 ABG O2 Saturation ABG Base Excess ABG Hemoglobin ABG Oxyhemoglobin ABG Sodium ABG Potassium ABG Chloride ABG Glucose Oxyhemoglobin Carboxyhemoglobin Sodium Potassium Chloride Carbon Dioxide BUN Creatinine Glucose POC Glucose 157 H Hemoglobin A1c Lactic Acid Calcium Phosphorus 5.60 H D Magnesium Ferritin Total Bilirubin AST ALT Lactate Dehydrogenase C-Reactive Protein Albumin Triglycerides Arterial Blood Glucose Arterial Blood Ionized Calcium Urine Creatinine Coronavirus (PCR) Crossmatch 02/05/21 02/05/21 02/05/21 03:44 05:27 09:15 WBC RBC Hgb Hct MCV MCH MCHC RDW Plt Count Lymph % (Auto) Lymph # (Auto) Seg Neutrophils % Seg Neuts % (Manual) Lymphocytes % (Manual) Monocytes % (Manual) Nucleated RBC % Seg Neutrophils # Seg Neutrophils # Man Lymphocytes # (Manual) Monocytes # (Manual) Eosinophils # (Manual) INR D-Dimer ABG pH 7.202 L POC ABG pCO2 63.7 H POC ABG pO2 69.0 L ABG pO2 ABG HCO3 ABG O2 Saturation ABG Base Excess ABG Hemoglobin 9.4 L ABG Oxyhemoglobin ABG Sodium ABG Potassium ABG Chloride 108.0 H ABG Glucose 186 H Oxyhemoglobin Carboxyhemoglobin Sodium Potassium Chloride Carbon Dioxide BUN 78 H Creatinine 8.0 H Glucose 163 H POC Glucose 157 H Hemoglobin A1c Lactic Acid Calcium 6.3 L Phosphorus Magnesium Ferritin Total Bilirubin AST ALT Lactate Dehydrogenase C-Reactive Protein Albumin Triglycerides Arterial Blood Glucose 186 H Arterial Blood Ionized Calcium 3.9 L Urine Creatinine Coronavirus (PCR) Crossmatch 02/05/21 02/05/21 02/05/21 11:47 17:39 23:40 WBC RBC Hgb Hct MCV MCH MCHC RDW Plt Count Lymph % (Auto) Lymph # (Auto) Seg Neutrophils % Seg Neuts % (Manual) Lymphocytes % (Manual) Monocytes % (Manual) Nucleated RBC % Seg Neutrophils # Seg Neutrophils # Man Lymphocytes # (Manual) Monocytes # (Manual) Eosinophils # (Manual) INR D-Dimer ABG pH 7.273 L POC ABG pCO2 62.1 H POC ABG pO2 72.0 L ABG pO2 ABG HCO3 ABG O2 Saturation ABG Base Excess ABG Hemoglobin 9.1 L ABG Oxyhemoglobin 91.3 L ABG Sodium ABG Potassium 3.1 L ABG Chloride ABG Glucose 125 H Oxyhemoglobin Carboxyhemoglobin Sodium Potassium Chloride Carbon Dioxide BUN Creatinine Glucose POC Glucose 126 H 126 H Hemoglobin A1c Lactic Acid Calcium Phosphorus Magnesium Ferritin Total Bilirubin AST ALT Lactate Dehydrogenase C-Reactive Protein Albumin Triglycerides Arterial Blood Glucose 125 H Arterial Blood Ionized Calcium 4.0 L Urine Creatinine Coronavirus (PCR) Crossmatch 02/06/21 02/06/21 02/06/21 04:30 04:57 09:45 WBC RBC Hgb Hct MCV MCH MCHC RDW Plt Count Lymph % (Auto) Lymph # (Auto) Seg Neutrophils % Seg Neuts % (Manual) Lymphocytes % (Manual) Monocytes % (Manual) Nucleated RBC % Seg Neutrophils # Seg Neutrophils # Man Lymphocytes # (Manual) Monocytes # (Manual) Eosinophils # (Manual) INR D-Dimer ABG pH 7.159 L 7.138 L* POC ABG pCO2 76.3 H POC ABG pO2 66.9 L ABG pO2 ABG HCO3 ABG O2 Saturation 93.4 L ABG Base Excess -6.0 L ABG Hemoglobin 11.2 L 11.7 L ABG Oxyhemoglobin 88.2 L ABG Sodium ABG Potassium ABG Chloride ABG Glucose 134 H Oxyhemoglobin 91.2 L Carboxyhemoglobin Sodium Potassium Chloride Carbon Dioxide BUN Creatinine Glucose POC Glucose 124 H Hemoglobin A1c Lactic Acid Calcium Phosphorus Magnesium Ferritin Total Bilirubin AST ALT Lactate Dehydrogenase C-Reactive Protein Albumin Triglycerides Arterial Blood Glucose 134 H Arterial Blood Ionized Calcium 3.9 L Urine Creatinine Coronavirus (PCR) Crossmatch 02/06/21 02/06/21 02/06/21 11:11 17:00 17:00 WBC RBC Hgb Hct MCV MCH MCHC RDW Plt Count Lymph % (Auto) Lymph # (Auto) Seg Neutrophils % Seg Neuts % (Manual) Lymphocytes % (Manual) Monocytes % (Manual) Nucleated RBC % Seg Neutrophils # Seg Neutrophils # Man Lymphocytes # (Manual) Monocytes # (Manual) Eosinophils # (Manual) INR D-Dimer ABG pH 7.158 L* POC ABG pCO2 POC ABG pO2 ABG pO2 109.8 H ABG HCO3 28.7 H ABG O2 Saturation ABG Base Excess -2.5 L ABG Hemoglobin ABG Oxyhemoglobin ABG Sodium ABG Potassium ABG Chloride ABG Glucose Oxyhemoglobin 94.5 L Carboxyhemoglobin Sodium Potassium Chloride Carbon Dioxide BUN Creatinine Glucose POC Glucose 120 H Hemoglobin A1c Lactic Acid Calcium Phosphorus Magnesium Ferritin Total Bilirubin AST ALT Lactate Dehydrogenase C-Reactive Protein Albumin Triglycerides 503 H Arterial Blood Glucose Arterial Blood Ionized Calcium Urine Creatinine Coronavirus (PCR) Crossmatch 02/06/21 02/06/21 02/06/21 17:28 20:16 Unknown WBC 13.5 H RBC 2.98 L Hgb 9.3 L Hct 28.6 L MCV 96 H MCH MCHC RDW Plt Count Lymph % (Auto) Lymph # (Auto) Seg Neutrophils % Seg Neuts % (Manual) 87.0 H Lymphocytes % (Manual) 7.0 L Monocytes % (Manual) Nucleated RBC % Seg Neutrophils # Seg Neutrophils # Man 11.7 H Lymphocytes # (Manual) 0.9 L Monocytes # (Manual) Eosinophils # (Manual) 0.5 H INR D-Dimer ABG pH POC ABG pCO2 POC ABG pO2 ABG pO2 ABG HCO3 ABG O2 Saturation ABG Base Excess ABG Hemoglobin ABG Oxyhemoglobin ABG Sodium ABG Potassium ABG Chloride ABG Glucose Oxyhemoglobin Carboxyhemoglobin Sodium Potassium Chloride Carbon Dioxide BUN Creatinine Glucose POC Glucose 147 H 164 H Hemoglobin A1c Lactic Acid Calcium Phosphorus Magnesium Ferritin Total Bilirubin AST ALT Lactate Dehydrogenase C-Reactive Protein Albumin Triglycerides Arterial Blood Glucose Arterial Blood Ionized Calcium Urine Creatinine Coronavirus (PCR) Crossmatch 02/06/21 02/07/21 02/07/21 Unknown 01:21 04:00 WBC 12.0 H RBC 2.61 L Hgb 8.2 L Hct 24.5 L MCV MCH MCHC RDW Plt Count Lymph % (Auto) 8.9 L Lymph # (Auto) 1.1 L Seg Neutrophils % 86.3 H Seg Neuts % (Manual) Lymphocytes % (Manual) Monocytes % (Manual) Nucleated RBC % Seg Neutrophils # 10.3 H Seg Neutrophils # Man Lymphocytes # (Manual) Monocytes # (Manual) Eosinophils # (Manual) INR D-Dimer ABG pH POC ABG pCO2 POC ABG pO2 ABG pO2 ABG HCO3 ABG O2 Saturation ABG Base Excess ABG Hemoglobin ABG Oxyhemoglobin ABG Sodium ABG Potassium ABG Chloride ABG Glucose Oxyhemoglobin Carboxyhemoglobin Sodium Potassium 3.5 L Chloride Carbon Dioxide BUN 58 H Creatinine 6.6 H Glucose 107 H POC Glucose 173 H Hemoglobin A1c Lactic Acid Calcium 6.7 L Phosphorus 8.00 H D Magnesium Ferritin Total Bilirubin AST ALT Lactate Dehydrogenase C-Reactive Protein Albumin Triglycerides Arterial Blood Glucose Arterial Blood Ionized Calcium Urine Creatinine Coronavirus (PCR) Crossmatch 02/07/21 02/07/21 02/07/21 04:00 04:45 11:49 WBC RBC Hgb Hct MCV MCH MCHC RDW Plt Count Lymph % (Auto) Lymph # (Auto) Seg Neutrophils % Seg Neuts % (Manual) Lymphocytes % (Manual) Monocytes % (Manual) Nucleated RBC % Seg Neutrophils # Seg Neutrophils # Man Lymphocytes # (Manual) Monocytes # (Manual) Eosinophils # (Manual) INR D-Dimer ABG pH 7.287 L POC ABG pCO2 64.8 H POC ABG pO2 74.0 L ABG pO2 ABG HCO3 ABG O2 Saturation ABG Base Excess ABG Hemoglobin 9.1 L ABG Oxyhemoglobin 92.0 L ABG Sodium ABG Potassium 2.8 L ABG Chloride ABG Glucose 226 H Oxyhemoglobin Carboxyhemoglobin Sodium Potassium Chloride Carbon Dioxide BUN Creatinine Glucose POC Glucose 170 H Hemoglobin A1c Lactic Acid Calcium Phosphorus 5.50 H D Magnesium Ferritin Total Bilirubin AST ALT Lactate Dehydrogenase C-Reactive Protein Albumin Triglycerides Arterial Blood Glucose 226 H Arterial Blood Ionized Calcium 3.7 L Urine Creatinine Coronavirus (PCR) Crossmatch 02/07/21 02/07/21 02/07/21 13:48 17:45 23:02 WBC RBC Hgb Hct MCV MCH MCHC RDW Plt Count Lymph % (Auto) Lymph # (Auto) Seg Neutrophils % Seg Neuts % (Manual) Lymphocytes % (Manual) Monocytes % (Manual) Nucleated RBC % Seg Neutrophils # Seg Neutrophils # Man Lymphocytes # (Manual) Monocytes # (Manual) Eosinophils # (Manual) INR D-Dimer ABG pH POC ABG pCO2 POC ABG pO2 ABG pO2 ABG HCO3 ABG O2 Saturation ABG Base Excess ABG Hemoglobin ABG Oxyhemoglobin ABG Sodium ABG Potassium ABG Chloride ABG Glucose Oxyhemoglobin Carboxyhemoglobin Sodium 136 L Potassium 2.6 L* D Chloride 95.1 L Carbon Dioxide 33 H D BUN 30 H Creatinine 3.6 H Glucose 184 H POC Glucose 172 H 172 H Hemoglobin A1c Lactic Acid Calcium 6.9 L Phosphorus Magnesium Ferritin Total Bilirubin AST ALT Lactate Dehydrogenase C-Reactive Protein Albumin Triglycerides Arterial Blood Glucose Arterial Blood Ionized Calcium Urine Creatinine Coronavirus (PCR) Crossmatch 02/08/21 02/08/21 02/08/21 05:22 06:00 06:00 WBC RBC 2.21 L Hgb 7.2 L Hct 21.0 L MCV 95 H MCH MCHC RDW Plt Count Lymph % (Auto) Lymph # (Auto) Seg Neutrophils % Seg Neuts % (Manual) 87.0 H Lymphocytes % (Manual) 4.0 L Monocytes % (Manual) Nucleated RBC % Seg Neutrophils # Seg Neutrophils # Man 8.5 H Lymphocytes # (Manual) 0.4 L Monocytes # (Manual) Eosinophils # (Manual) INR D-Dimer ABG pH POC ABG pCO2 POC ABG pO2 ABG pO2 ABG HCO3 ABG O2 Saturation ABG Base Excess ABG Hemoglobin ABG Oxyhemoglobin ABG Sodium ABG Potassium ABG Chloride ABG Glucose Oxyhemoglobin Carboxyhemoglobin Sodium 136 L Potassium 2.4 L* Chloride 93.1 L Carbon Dioxide 36 H BUN 43 H Creatinine 5.4 H Glucose 167 H POC Glucose 162 H Hemoglobin A1c Lactic Acid Calcium 6.3 L Phosphorus Magnesium Ferritin Total Bilirubin AST ALT Lactate Dehydrogenase C-Reactive Protein Albumin Triglycerides Arterial Blood Glucose Arterial Blood Ionized Calcium Urine Creatinine Coronavirus (PCR) Crossmatch 02/08/21 02/08/21 02/08/21 11:44 17:53 18:56 WBC RBC Hgb Hct MCV MCH MCHC RDW Plt Count Lymph % (Auto) Lymph # (Auto) Seg Neutrophils % Seg Neuts % (Manual) Lymphocytes % (Manual) Monocytes % (Manual) Nucleated RBC % Seg Neutrophils # Seg Neutrophils # Man Lymphocytes # (Manual) Monocytes # (Manual) Eosinophils # (Manual) INR D-Dimer ABG pH POC ABG pCO2 POC ABG pO2 ABG pO2 ABG HCO3 ABG O2 Saturation ABG Base Excess ABG Hemoglobin ABG Oxyhemoglobin ABG Sodium ABG Potassium ABG Chloride ABG Glucose Oxyhemoglobin Carboxyhemoglobin Sodium Potassium 2.9 L* D Chloride Carbon Dioxide BUN Creatinine Glucose POC Glucose 164 H 154 H Hemoglobin A1c Lactic Acid Calcium Phosphorus Magnesium Ferritin Total Bilirubin AST ALT Lactate Dehydrogenase C-Reactive Protein Albumin Triglycerides Arterial Blood Glucose Arterial Blood Ionized Calcium Urine Creatinine Coronavirus (PCR) Crossmatch 02/08/21 02/08/21 02/09/21 23:24 23:58 03:21 WBC RBC Hgb Hct MCV MCH MCHC RDW Plt Count Lymph % (Auto) Lymph # (Auto) Seg Neutrophils % Seg Neuts % (Manual) Lymphocytes % (Manual) Monocytes % (Manual) Nucleated RBC % Seg Neutrophils # Seg Neutrophils # Man Lymphocytes # (Manual) Monocytes # (Manual) Eosinophils # (Manual) INR D-Dimer ABG pH 7.319 L POC ABG pCO2 63.3 H 68.3 H POC ABG pO2 71.2 L 76.5 L ABG pO2 ABG HCO3 ABG O2 Saturation ABG Base Excess ABG Hemoglobin 8.2 L 7.0 L ABG Oxyhemoglobin 91.8 L 92.2 L ABG Sodium 134.6 L 133.0 L ABG Potassium 2.3 L 3.1 L ABG Chloride 96.0 L 95.0 L ABG Glucose 184 H 154 H Oxyhemoglobin Carboxyhemoglobin Sodium Potassium Chloride Carbon Dioxide BUN Creatinine Glucose POC Glucose 152 H Hemoglobin A1c Lactic Acid Calcium Phosphorus Magnesium Ferritin Total Bilirubin AST ALT Lactate Dehydrogenase C-Reactive Protein Albumin Triglycerides Arterial Blood Glucose 184 H 154 H Arterial Blood Ionized Calcium 3.6 L 3.5 L Urine Creatinine Coronavirus (PCR) Crossmatch 02/09/21 02/09/21 02/09/21 05:10 05:10 06:04 WBC RBC 2.14 L Hgb 7.0 L Hct 20.5 L MCV 96 H MCH 33 H MCHC RDW Plt Count Lymph % (Auto) Lymph # (Auto) Seg Neutrophils % Seg Neuts % (Manual) 82.0 H Lymphocytes % (Manual) 9.0 L Monocytes % (Manual) Nucleated RBC % 1.0 H Seg Neutrophils # Seg Neutrophils # Man 8.9 H Lymphocytes # (Manual) 1.0 L Monocytes # (Manual) Eosinophils # (Manual) INR D-Dimer ABG pH POC ABG pCO2 POC ABG pO2 ABG pO2 ABG HCO3 ABG O2 Saturation ABG Base Excess ABG Hemoglobin ABG Oxyhemoglobin ABG Sodium ABG Potassium ABG Chloride ABG Glucose Oxyhemoglobin Carboxyhemoglobin Sodium 135 L Potassium 3.2 L Chloride 91.0 L Carbon Dioxide 32 H BUN 54 H Creatinine 6.6 H Glucose 163 H POC Glucose 149 H Hemoglobin A1c Lactic Acid Calcium 6.2 L Phosphorus Magnesium Ferritin Total Bilirubin AST ALT Lactate Dehydrogenase C-Reactive Protein Albumin Triglycerides Arterial Blood Glucose Arterial Blood Ionized Calcium Urine Creatinine Coronavirus (PCR) Crossmatch 02/09/21 02/09/21 02/09/21 12:02 13:32 13:40 WBC RBC Hgb Hct MCV MCH MCHC RDW Plt Count Lymph % (Auto) Lymph # (Auto) Seg Neutrophils % Seg Neuts % (Manual) Lymphocytes % (Manual) Monocytes % (Manual) Nucleated RBC % Seg Neutrophils # Seg Neutrophils # Man Lymphocytes # (Manual) Monocytes # (Manual) Eosinophils # (Manual) INR D-Dimer ABG pH POC ABG pCO2 POC ABG pO2 ABG pO2 ABG HCO3 ABG O2 Saturation ABG Base Excess ABG Hemoglobin ABG Oxyhemoglobin ABG Sodium ABG Potassium ABG Chloride ABG Glucose Oxyhemoglobin Carboxyhemoglobin Sodium Potassium Chloride Carbon Dioxide BUN Creatinine Glucose POC Glucose 147 H Hemoglobin A1c Lactic Acid Calcium Phosphorus Magnesium Ferritin Total Bilirubin AST ALT Lactate Dehydrogenase C-Reactive Protein Albumin Triglycerides 250 H Arterial Blood Glucose Arterial Blood Ionized Calcium Urine Creatinine Coronavirus (PCR) Crossmatch See Detail 02/09/21 02/09/21 02/10/21 18:06 23:42 04:00 WBC RBC Hgb Hct MCV MCH MCHC RDW Plt Count Lymph % (Auto) Lymph # (Auto) Seg Neutrophils % Seg Neuts % (Manual) Lymphocytes % (Manual) Monocytes % (Manual) Nucleated RBC % Seg Neutrophils # Seg Neutrophils # Man Lymphocytes # (Manual) Monocytes # (Manual) Eosinophils # (Manual) INR D-Dimer ABG pH POC ABG pCO2 65.8 H POC ABG pO2 68.0 L ABG pO2 ABG HCO3 ABG O2 Saturation ABG Base Excess ABG Hemoglobin 8.3 L ABG Oxyhemoglobin ABG Sodium 132.4 L ABG Potassium 2.9 L ABG Chloride 92.0 L ABG Glucose 174 H Oxyhemoglobin Carboxyhemoglobin Sodium Potassium Chloride Carbon Dioxide BUN Creatinine Glucose POC Glucose 152 H 147 H Hemoglobin A1c Lactic Acid Calcium Phosphorus Magnesium Ferritin Total Bilirubin AST ALT Lactate Dehydrogenase C-Reactive Protein Albumin Triglycerides Arterial Blood Glucose 174 H Arterial Blood Ionized Calcium 3.4 L Urine Creatinine Coronavirus (PCR) Crossmatch 02/10/21 02/10/21 02/10/21 05:32 11:29 14:08 WBC 12.5 H RBC 2.14 L Hgb 6.6 L Hct 20.2 L MCV MCH MCHC RDW Plt Count Lymph % (Auto) Lymph # (Auto) Seg Neutrophils % Seg Neuts % (Manual) Lymphocytes % (Manual) Monocytes % (Manual) Nucleated RBC % Seg Neutrophils # Seg Neutrophils # Man Lymphocytes # (Manual) Monocytes # (Manual) Eosinophils # (Manual) INR D-Dimer ABG pH POC ABG pCO2 POC ABG pO2 ABG pO2 ABG HCO3 ABG O2 Saturation ABG Base Excess ABG Hemoglobin ABG Oxyhemoglobin ABG Sodium ABG Potassium ABG Chloride ABG Glucose Oxyhemoglobin Carboxyhemoglobin Sodium Potassium Chloride Carbon Dioxide BUN Creatinine Glucose POC Glucose 167 H 147 H Hemoglobin A1c Lactic Acid Calcium Phosphorus Magnesium Ferritin Total Bilirubin AST ALT Lactate Dehydrogenase C-Reactive Protein Albumin Triglycerides Arterial Blood Glucose Arterial Blood Ionized Calcium Urine Creatinine Coronavirus (PCR) Crossmatch 02/10/21 02/10/21 02/10/21 14:08 18:11 22:32 WBC RBC Hgb 6.4 L Hct 19.1 L* MCV MCH MCHC RDW Plt Count Lymph % (Auto) Lymph # (Auto) Seg Neutrophils % Seg Neuts % (Manual) Lymphocytes % (Manual) Monocytes % (Manual) Nucleated RBC % Seg Neutrophils # Seg Neutrophils # Man Lymphocytes # (Manual) Monocytes # (Manual) Eosinophils # (Manual) INR D-Dimer ABG pH POC ABG pCO2 POC ABG pO2 ABG pO2 ABG HCO3 ABG O2 Saturation ABG Base Excess ABG Hemoglobin ABG Oxyhemoglobin ABG Sodium ABG Potassium ABG Chloride ABG Glucose Oxyhemoglobin Carboxyhemoglobin Sodium 136 L Potassium 2.9 L* Chloride 90.2 L Carbon Dioxide 33 H BUN 42 H Creatinine 7.5 H Glucose 155 H POC Glucose 173 H Hemoglobin A1c Lactic Acid Calcium 6.1 L Phosphorus Magnesium Ferritin Total Bilirubin AST ALT Lactate Dehydrogenase C-Reactive Protein Albumin Triglycerides Arterial Blood Glucose Arterial Blood Ionized Calcium Urine Creatinine Coronavirus (PCR) Crossmatch 02/11/21 02/11/21 02/11/21 00:28 04:05 04:30 WBC RBC Hgb Hct MCV MCH MCHC RDW Plt Count Lymph % (Auto) Lymph # (Auto) Seg Neutrophils % Seg Neuts % (Manual) Lymphocytes % (Manual) Monocytes % (Manual) Nucleated RBC % Seg Neutrophils # Seg Neutrophils # Man Lymphocytes # (Manual) Monocytes # (Manual) Eosinophils # (Manual) INR D-Dimer ABG pH 7.307 L POC ABG pCO2 72.2 H POC ABG pO2 72.3 L ABG pO2 ABG HCO3 ABG O2 Saturation ABG Base Excess ABG Hemoglobin 8.2 L ABG Oxyhemoglobin ABG Sodium 132.3 L ABG Potassium 3.2 L ABG Chloride 91.0 L ABG Glucose 197 H Oxyhemoglobin Carboxyhemoglobin Sodium 135 L Potassium 3.3 L Chloride 87.1 L Carbon Dioxide 36 H BUN 71 H Creatinine 7.9 H Glucose 263 H POC Glucose 192 H Hemoglobin A1c Lactic Acid Calcium 6.2 L Phosphorus Magnesium Ferritin Total Bilirubin AST ALT Lactate Dehydrogenase C-Reactive Protein Albumin Triglycerides Arterial Blood Glucose 197 H Arterial Blood Ionized Calcium 3.3 L Urine Creatinine Coronavirus (PCR) Crossmatch 02/11/21 02/11/21 02/11/21 04:30 05:47 08:27 WBC RBC 2.22 L Hgb 7.2 L Hct 21.0 L MCV MCH MCHC RDW Plt Count Lymph % (Auto) 8.7 L Lymph # (Auto) 0.9 L Seg Neutrophils % 85.5 H Seg Neuts % (Manual) Lymphocytes % (Manual) Monocytes % (Manual) Nucleated RBC % Seg Neutrophils # 9.2 H Seg Neutrophils # Man Lymphocytes # (Manual) Monocytes # (Manual) Eosinophils # (Manual) INR 1.17 H D-Dimer 1930.92 H ABG pH POC ABG pCO2 POC ABG pO2 ABG pO2 ABG HCO3 ABG O2 Saturation ABG Base Excess ABG Hemoglobin ABG Oxyhemoglobin ABG Sodium ABG Potassium ABG Chloride ABG Glucose Oxyhemoglobin Carboxyhemoglobin Sodium Potassium Chloride Carbon Dioxide BUN Creatinine Glucose POC Glucose 189 H Hemoglobin A1c Lactic Acid Calcium Phosphorus Magnesium Ferritin Total Bilirubin AST ALT Lactate Dehydrogenase C-Reactive Protein Albumin Triglycerides Arterial Blood Glucose Arterial Blood Ionized Calcium Urine Creatinine Coronavirus (PCR) Crossmatch 02/11/21 02/11/21 02/11/21 09:00 09:00 13:18 WBC RBC Hgb Hct MCV MCH MCHC RDW Plt Count Lymph % (Auto) Lymph # (Auto) Seg Neutrophils % Seg Neuts % (Manual) Lymphocytes % (Manual) Monocytes % (Manual) Nucleated RBC % Seg Neutrophils # Seg Neutrophils # Man Lymphocytes # (Manual) Monocytes # (Manual) Eosinophils # (Manual) INR D-Dimer ABG pH POC ABG pCO2 POC ABG pO2 ABG pO2 ABG HCO3 ABG O2 Saturation ABG Base Excess ABG Hemoglobin ABG Oxyhemoglobin ABG Sodium ABG Potassium ABG Chloride ABG Glucose Oxyhemoglobin Carboxyhemoglobin Sodium Potassium Chloride Carbon Dioxide BUN Creatinine Glucose 126 H POC Glucose 160 H Hemoglobin A1c Lactic Acid Calcium Phosphorus Magnesium Ferritin 1253.0 H Total Bilirubin AST ALT Lactate Dehydrogenase 649 H C-Reactive Protein 12.60 H Albumin Triglycerides Arterial Blood Glucose Arterial Blood Ionized Calcium Urine Creatinine Coronavirus (PCR) Crossmatch 02/11/21 02/11/2121 14:30 16:59 22:34 WBC RBC Hgb 7.1 L 6.7 L Hct 20.5 L 19.9 L* MCV MCH MCHC RDW Plt Count Lymph % (Auto) Lymph # (Auto) Seg Neutrophils % Seg Neuts % (Manual) Lymphocytes % (Manual) Monocytes % (Manual) Nucleated RBC % Seg Neutrophils # Seg Neutrophils # Man Lymphocytes # (Manual) Monocytes # (Manual) Eosinophils # (Manual) INR D-Dimer ABG pH POC ABG pCO2 POC ABG pO2 ABG pO2 ABG HCO3 ABG O2 Saturation ABG Base Excess ABG Hemoglobin ABG Oxyhemoglobin ABG Sodium ABG Potassium ABG Chloride ABG Glucose Oxyhemoglobin Carboxyhemoglobin Sodium Potassium Chloride Carbon Dioxide BUN Creatinine Glucose POC Glucose 151 H Hemoglobin A1c Lactic Acid Calcium Phosphorus Magnesium Ferritin Total Bilirubin AST ALT Lactate Dehydrogenase C-Reactive Protein Albumin Triglycerides Arterial Blood Glucose Arterial Blood Ionized Calcium Urine Creatinine Coronavirus (PCR) Crossmatch 02/11/21 02/12/21 02/12/21 23:42 04:41 05:19 WBC RBC Hgb Hct MCV MCH MCHC RDW Plt Count Lymph % (Auto) Lymph # (Auto) Seg Neutrophils % Seg Neuts % (Manual) Lymphocytes % (Manual) Monocytes % (Manual) Nucleated RBC % Seg Neutrophils # Seg Neutrophils # Man Lymphocytes # (Manual) Monocytes # (Manual) Eosinophils # (Manual) INR D-Dimer ABG pH POC ABG pCO2 POC ABG pO2 ABG pO2 69.0 L ABG HCO3 32.5 H ABG O2 Saturation ABG Base Excess 7.7 H ABG Hemoglobin 5.1 L ABG Oxyhemoglobin ABG Sodium ABG Potassium ABG Chloride ABG Glucose Oxyhemoglobin 94.7 L Carboxyhemoglobin Sodium Potassium Chloride Carbon Dioxide BUN Creatinine Glucose POC Glucose 165 H 153 H Hemoglobin A1c Lactic Acid Calcium Phosphorus Magnesium Ferritin Total Bilirubin AST ALT Lactate Dehydrogenase C-Reactive Protein Albumin Triglycerides Arterial Blood Glucose Arterial Blood Ionized Calcium Urine Creatinine Coronavirus (PCR) Crossmatch 02/12/21 02/12/21 02/12/21 06:35 06:35 08:40 WBC RBC 2.21 L Hgb 7.2 L Hct 20.7 L MCV MCH 33 H MCHC 35 H RDW Plt Count Lymph % (Auto) Lymph # (Auto) Seg Neutrophils % Seg Neuts % (Manual) Lymphocytes % (Manual) Monocytes % (Manual) Nucleated RBC % Seg Neutrophils # Seg Neutrophils # Man Lymphocytes # (Manual) Monocytes # (Manual) Eosinophils # (Manual) INR D-Dimer ABG pH POC ABG pCO2 POC ABG pO2 ABG pO2 ABG HCO3 ABG O2 Saturation ABG Base Excess ABG Hemoglobin ABG Oxyhemoglobin ABG Sodium ABG Potassium ABG Chloride ABG Glucose Oxyhemoglobin Carboxyhemoglobin Sodium 135 L Potassium 3.4 L Chloride 91.8 L Carbon Dioxide 36 H BUN 57 H Creatinine 6.8 H Glucose 163 H POC Glucose Hemoglobin A1c Lactic Acid Calcium 7.0 L Phosphorus Magnesium 1.60 L Ferritin Total Bilirubin AST ALT Lactate Dehydrogenase C-Reactive Protein Albumin Triglycerides Arterial Blood Glucose Arterial Blood Ionized Calcium Urine Creatinine Coronavirus (PCR) Crossmatch 02/12/21 02/12/21 02/12/21 10:45 12:04 17:19 WBC RBC Hgb Hct MCV MCH MCHC RDW Plt Count Lymph % (Auto) Lymph # (Auto) Seg Neutrophils % Seg Neuts % (Manual) Lymphocytes % (Manual) Monocytes % (Manual) Nucleated RBC % Seg Neutrophils # Seg Neutrophils # Man Lymphocytes # (Manual) Monocytes # (Manual) Eosinophils # (Manual) INR D-Dimer ABG pH POC ABG pCO2 POC ABG pO2 ABG pO2 ABG HCO3 ABG O2 Saturation ABG Base Excess ABG Hemoglobin ABG Oxyhemoglobin ABG Sodium ABG Potassium ABG Chloride ABG Glucose Oxyhemoglobin Carboxyhemoglobin Sodium Potassium Chloride Carbon Dioxide BUN Creatinine Glucose POC Glucose 165 H 165 H Hemoglobin A1c Lactic Acid Calcium Phosphorus Magnesium Ferritin Total Bilirubin AST ALT Lactate Dehydrogenase C-Reactive Protein Albumin Triglycerides 182 H Arterial Blood Glucose Arterial Blood Ionized Calcium Urine Creatinine Coronavirus (PCR) Crossmatch 02/12/21 02/13/21 02/13/21 23:18 05:00 05:36 WBC RBC Hgb Hct MCV MCH MCHC RDW Plt Count Lymph % (Auto) Lymph # (Auto) Seg Neutrophils % Seg Neuts % (Manual) Lymphocytes % (Manual) Monocytes % (Manual) Nucleated RBC % Seg Neutrophils # Seg Neutrophils # Man Lymphocytes # (Manual) Monocytes # (Manual) Eosinophils # (Manual) INR D-Dimer ABG pH POC ABG pCO2 60.8 H POC ABG pO2 76.4 L ABG pO2 ABG HCO3 ABG O2 Saturation ABG Base Excess ABG Hemoglobin 7.4 L ABG Oxyhemoglobin ABG Sodium 133.2 L ABG Potassium 3.3 L ABG Chloride 96.0 L ABG Glucose 168 H Oxyhemoglobin Carboxyhemoglobin Sodium Potassium Chloride Carbon Dioxide BUN Creatinine Glucose POC Glucose 163 H 151 H Hemoglobin A1c Lactic Acid Calcium Phosphorus Magnesium Ferritin Total Bilirubin AST ALT Lactate Dehydrogenase C-Reactive Protein Albumin Triglycerides Arterial Blood Glucose 168 H Arterial Blood Ionized Calcium 4.3 L Urine Creatinine Coronavirus (PCR) Crossmatch 02/13/21 02/13/21 02/13/21 06:40 06:40 06:40 WBC RBC 2.19 L Hgb 7.0 L Hct 20.8 L MCV 95 H MCH MCHC RDW Plt Count Lymph % (Auto) Lymph # (Auto) Seg Neutrophils % Seg Neuts % (Manual) Lymphocytes % (Manual) Monocytes % (Manual) Nucleated RBC % Seg Neutrophils # Seg Neutrophils # Man Lymphocytes # (Manual) Monocytes # (Manual) Eosinophils # (Manual) INR D-Dimer ABG pH POC ABG pCO2 POC ABG pO2 ABG pO2 ABG HCO3 ABG O2 Saturation ABG Base Excess ABG Hemoglobin ABG Oxyhemoglobin ABG Sodium ABG Potassium ABG Chloride ABG Glucose Oxyhemoglobin Carboxyhemoglobin Sodium 135 L Potassium 3.4 L Chloride 93.0 L Carbon Dioxide 32 H BUN 46 H Creatinine 5.8 H Glucose 148 H POC Glucose Hemoglobin A1c Lactic Acid Calcium 7.9 L Phosphorus Magnesium Ferritin Total Bilirubin AST ALT Lactate Dehydrogenase C-Reactive Protein 16.80 H Albumin Triglycerides Arterial Blood Glucose Arterial Blood Ionized Calcium Urine Creatinine Coronavirus (PCR) Crossmatch 02/13/21 02/13/21 02/13/21 06:40 07:38 07:38 WBC RBC Hgb Hct MCV MCH MCHC RDW Plt Count Lymph % (Auto) Lymph # (Auto) Seg Neutrophils % Seg Neuts % (Manual) Lymphocytes % (Manual) Monocytes % (Manual) Nucleated RBC % Seg Neutrophils # Seg Neutrophils # Man Lymphocytes # (Manual) Monocytes # (Manual) Eosinophils # (Manual) INR D-Dimer 1722.16 H ABG pH POC ABG pCO2 POC ABG pO2 ABG pO2 ABG HCO3 ABG O2 Saturation ABG Base Excess ABG Hemoglobin ABG Oxyhemoglobin ABG Sodium ABG Potassium ABG Chloride ABG Glucose Oxyhemoglobin Carboxyhemoglobin Sodium Potassium Chloride Carbon Dioxide BUN Creatinine Glucose POC Glucose Hemoglobin A1c Lactic Acid Calcium Phosphorus Magnesium 1.60 L Ferritin 976.5 H Total Bilirubin AST ALT Lactate Dehydrogenase C-Reactive Protein Albumin Triglycerides Arterial Blood Glucose Arterial Blood Ionized Calcium Urine Creatinine Coronavirus (PCR) Crossmatch 02/13/21 02/13/21 02/13/21 12:24 16:57 23:32 WBC RBC Hgb Hct MCV MCH MCHC RDW Plt Count Lymph % (Auto) Lymph # (Auto) Seg Neutrophils % Seg Neuts % (Manual) Lymphocytes % (Manual) Monocytes % (Manual) Nucleated RBC % Seg Neutrophils # Seg Neutrophils # Man Lymphocytes # (Manual) Monocytes # (Manual) Eosinophils # (Manual) INR D-Dimer ABG pH POC ABG pCO2 POC ABG pO2 ABG pO2 ABG HCO3 ABG O2 Saturation ABG Base Excess ABG Hemoglobin ABG Oxyhemoglobin ABG Sodium ABG Potassium ABG Chloride ABG Glucose Oxyhemoglobin Carboxyhemoglobin Sodium Potassium Chloride Carbon Dioxide BUN Creatinine Glucose POC Glucose 141 H 156 H 161 H Hemoglobin A1c Lactic Acid Calcium Phosphorus Magnesium Ferritin Total Bilirubin AST ALT Lactate Dehydrogenase C-Reactive Protein Albumin Triglycerides Arterial Blood Glucose Arterial Blood Ionized Calcium Urine Creatinine Coronavirus (PCR) Crossmatch 02/14/21 02/14/21 02/14/21 04:00 05:41 11:00 WBC RBC 2.14 L Hgb 6.9 L Hct 20.7 L MCV 97 H MCH 33 H MCHC RDW Plt Count Lymph % (Auto) Lymph # (Auto) Seg Neutrophils % Seg Neuts % (Manual) Lymphocytes % (Manual) Monocytes % (Manual) Nucleated RBC % Seg Neutrophils # Seg Neutrophils # Man Lymphocytes # (Manual) Monocytes # (Manual) Eosinophils # (Manual) INR D-Dimer ABG pH POC ABG pCO2 POC ABG pO2 ABG pO2 ABG HCO3 ABG O2 Saturation ABG Base Excess ABG Hemoglobin ABG Oxyhemoglobin ABG Sodium ABG Potassium ABG Chloride ABG Glucose Oxyhemoglobin Carboxyhemoglobin Sodium Potassium Chloride Carbon Dioxide BUN Creatinine Glucose POC Glucose 143 H Hemoglobin A1c Lactic Acid Calcium Phosphorus Magnesium Ferritin Total Bilirubin AST ALT Lactate Dehydrogenase C-Reactive Protein Albumin Triglycerides Arterial Blood Glucose Arterial Blood Ionized Calcium Urine Creatinine Coronavirus (PCR) Crossmatch See Detail 02/14/21 02/14/21 02/14/21 11:51 18:08 23:41 WBC RBC Hgb Hct MCV MCH MCHC RDW Plt Count Lymph % (Auto) Lymph # (Auto) Seg Neutrophils % Seg Neuts % (Manual) Lymphocytes % (Manual) Monocytes % (Manual) Nucleated RBC % Seg Neutrophils # Seg Neutrophils # Man Lymphocytes # (Manual) Monocytes # (Manual) Eosinophils # (Manual) INR D-Dimer ABG pH POC ABG pCO2 POC ABG pO2 ABG pO2 ABG HCO3 ABG O2 Saturation ABG Base Excess ABG Hemoglobin ABG Oxyhemoglobin ABG Sodium ABG Potassium ABG Chloride ABG Glucose Oxyhemoglobin Carboxyhemoglobin Sodium Potassium Chloride Carbon Dioxide BUN Creatinine Glucose POC Glucose 113 H 123 H 120 H Hemoglobin A1c Lactic Acid Calcium Phosphorus Magnesium Ferritin Total Bilirubin AST ALT Lactate Dehydrogenase C-Reactive Protein Albumin Triglycerides Arterial Blood Glucose Arterial Blood Ionized Calcium Urine Creatinine Coronavirus (PCR) Crossmatch 02/14/21 02/15/21 02/15/21 Unknown 05:00 05:00 WBC RBC Hgb Hct MCV MCH MCHC RDW Plt Count Lymph % (Auto) Lymph # (Auto) Seg Neutrophils % Seg Neuts % (Manual) Lymphocytes % (Manual) Monocytes % (Manual) Nucleated RBC % Seg Neutrophils # Seg Neutrophils # Man Lymphocytes # (Manual) Monocytes # (Manual) Eosinophils # (Manual) INR D-Dimer ABG pH POC ABG pCO2 53.4 H POC ABG pO2 61.8 L ABG pO2 ABG HCO3 ABG O2 Saturation ABG Base Excess ABG Hemoglobin 7.7 L ABG Oxyhemoglobin 88.8 L ABG Sodium ABG Potassium ABG Chloride ABG Glucose 143 H Oxyhemoglobin Carboxyhemoglobin 1.6 H Sodium Potassium Chloride 96.9 L Carbon Dioxide 33 H 31 H BUN 40 H 38 H Creatinine 5.2 H 4.8 H Glucose 152 H 132 H POC Glucose Hemoglobin A1c Lactic Acid Calcium 7.9 L Phosphorus Magnesium Ferritin Total Bilirubin AST ALT Lactate Dehydrogenase C-Reactive Protein Albumin Triglycerides Arterial Blood Glucose 143 H Arterial Blood Ionized Calcium Urine Creatinine Coronavirus (PCR) Crossmatch 02/15/21 02/15/21 02/15/21 05:00 05:27 12:05 WBC RBC 2.30 L Hgb 7.1 L Hct 22.1 L MCV 96 H MCH MCHC RDW 15.7 H Plt Count Lymph % (Auto) 11.0 L Lymph # (Auto) 1.1 L Seg Neutrophils % 83.0 H Seg Neuts % (Manual) Lymphocytes % (Manual) Monocytes % (Manual) Nucleated RBC % Seg Neutrophils # 8.6 H Seg Neutrophils # Man Lymphocytes # (Manual) Monocytes # (Manual) Eosinophils # (Manual) INR D-Dimer ABG pH POC ABG pCO2 POC ABG pO2 ABG pO2 ABG HCO3 ABG O2 Saturation ABG Base Excess ABG Hemoglobin ABG Oxyhemoglobin ABG Sodium ABG Potassium ABG Chloride ABG Glucose Oxyhemoglobin Carboxyhemoglobin Sodium Potassium Chloride Carbon Dioxide BUN Creatinine Glucose POC Glucose 133 H 123 H Hemoglobin A1c Lactic Acid Calcium Phosphorus Magnesium Ferritin Total Bilirubin AST ALT Lactate Dehydrogenase C-Reactive Protein Albumin Triglycerides Arterial Blood Glucose Arterial Blood Ionized Calcium Urine Creatinine Coronavirus (PCR) Crossmatch 02/15/21 02/15/21 02/16/21 17:08 23:52 03:44 WBC RBC Hgb Hct MCV MCH MCHC RDW Plt Count Lymph % (Auto) Lymph # (Auto) Seg Neutrophils % Seg Neuts % (Manual) Lymphocytes % (Manual) Monocytes % (Manual) Nucleated RBC % Seg Neutrophils # Seg Neutrophils # Man Lymphocytes # (Manual) Monocytes # (Manual) Eosinophils # (Manual) INR D-Dimer ABG pH 7.307 L POC ABG pCO2 59.5 H POC ABG pO2 63.2 L ABG pO2 ABG HCO3 ABG O2 Saturation ABG Base Excess ABG Hemoglobin 9.3 L ABG Oxyhemoglobin ABG Sodium ABG Potassium ABG Chloride ABG Glucose 148 H Oxyhemoglobin Carboxyhemoglobin Sodium Potassium Chloride Carbon Dioxide BUN Creatinine Glucose POC Glucose 129 H 136 H Hemoglobin A1c Lactic Acid Calcium Phosphorus Magnesium Ferritin Total Bilirubin AST ALT Lactate Dehydrogenase C-Reactive Protein Albumin Triglycerides Arterial Blood Glucose 148 H Arterial Blood Ionized Calcium Urine Creatinine Coronavirus (PCR) Crossmatch 02/16/21 02/16/21 02/16/21 05:26 06:00 12:14 WBC RBC Hgb Hct MCV MCH MCHC RDW Plt Count Lymph % (Auto) Lymph # (Auto) Seg Neutrophils % Seg Neuts % (Manual) Lymphocytes % (Manual) Monocytes % (Manual) Nucleated RBC % Seg Neutrophils # Seg Neutrophils # Man Lymphocytes # (Manual) Monocytes # (Manual) Eosinophils # (Manual) INR D-Dimer ABG pH POC ABG pCO2 POC ABG pO2 ABG pO2 ABG HCO3 ABG O2 Saturation ABG Base Excess ABG Hemoglobin ABG Oxyhemoglobin ABG Sodium ABG Potassium ABG Chloride ABG Glucose Oxyhemoglobin Carboxyhemoglobin Sodium Potassium Chloride Carbon Dioxide BUN 52 H Creatinine 6.0 H Glucose 138 H POC Glucose 135 H 128 H Hemoglobin A1c Lactic Acid Calcium Phosphorus Magnesium Ferritin Total Bilirubin AST ALT Lactate Dehydrogenase C-Reactive Protein Albumin Triglycerides Arterial Blood Glucose Arterial Blood Ionized Calcium Urine Creatinine Coronavirus (PCR) Crossmatch 02/16/21 02/16/21 02/16/21 17:09 17:09 17:09 WBC RBC Hgb Hct MCV MCH MCHC RDW Plt Count Lymph % (Auto) Lymph # (Auto) Seg Neutrophils % Seg Neuts % (Manual) Lymphocytes % (Manual) Monocytes % (Manual) Nucleated RBC % Seg Neutrophils # Seg Neutrophils # Man Lymphocytes # (Manual) Monocytes # (Manual) Eosinophils # (Manual) INR D-Dimer 4256.08 H ABG pH POC ABG pCO2 POC ABG pO2 ABG pO2 ABG HCO3 ABG O2 Saturation ABG Base Excess ABG Hemoglobin ABG Oxyhemoglobin ABG Sodium ABG Potassium ABG Chloride ABG Glucose Oxyhemoglobin Carboxyhemoglobin Sodium Potassium Chloride Carbon Dioxide BUN Creatinine Glucose POC Glucose Hemoglobin A1c Lactic Acid Calcium Phosphorus Magnesium Ferritin 980.6 H Total Bilirubin AST ALT Lactate Dehydrogenase 441 H C-Reactive Protein 20.20 H Albumin Triglycerides Arterial Blood Glucose Arterial Blood Ionized Calcium Urine Creatinine Coronavirus (PCR) Crossmatch 02/16/21 02/16/21 02/16/21 17:25 23:16 Unknown WBC RBC 2.19 L Hgb 7.1 L Hct 21.3 L MCV 98 H MCH 33 H MCHC RDW 16.0 H Plt Count Lymph % (Auto) Lymph # (Auto) Seg Neutrophils % Seg Neuts % (Manual) 85.0 H Lymphocytes % (Manual) 6.0 L Monocytes % (Manual) Nucleated RBC % 4.0 H Seg Neutrophils # Seg Neutrophils # Man Lymphocytes # (Manual) 0.5 L Monocytes # (Manual) Eosinophils # (Manual) INR D-Dimer ABG pH POC ABG pCO2 POC ABG pO2 ABG pO2 ABG HCO3 ABG O2 Saturation ABG Base Excess ABG Hemoglobin ABG Oxyhemoglobin ABG Sodium ABG Potassium ABG Chloride ABG Glucose Oxyhemoglobin Carboxyhemoglobin Sodium Potassium Chloride Carbon Dioxide BUN Creatinine Glucose POC Glucose 146 H 150 H Hemoglobin A1c Lactic Acid Calcium Phosphorus Magnesium Ferritin Total Bilirubin AST ALT Lactate Dehydrogenase C-Reactive Protein Albumin Triglycerides Arterial Blood Glucose Arterial Blood Ionized Calcium Urine Creatinine Coronavirus (PCR) Crossmatch 04/20/21 04/20/21 04/20/21 04:00 04:14 04:14 WBC RBC Hgb Hct MCV MCH MCHC RDW Plt Count Lymph % (Auto) Lymph # (Auto) Seg Neutrophils % Seg Neuts % (Manual) Lymphocytes % (Manual) Monocytes % (Manual) Nucleated RBC % Seg Neutrophils # Seg Neutrophils # Man Lymphocytes # (Manual) Monocytes # (Manual) Eosinophils # (Manual) INR D-Dimer 3183.35 H ABG pH 7.293 L POC ABG pCO2 59.5 H POC ABG pO2 68.1 L ABG pO2 ABG HCO3 ABG O2 Saturation ABG Base Excess ABG Hemoglobin 7.7 L ABG Oxyhemoglobin ABG Sodium 133.4 L ABG Potassium ABG Chloride ABG Glucose 143 H Oxyhemoglobin Carboxyhemoglobin Sodium 136 L Potassium Chloride 97.3 L Carbon Dioxide BUN 49 H Creatinine 5.3 H Glucose 139 H POC Glucose Hemoglobin A1c Lactic Acid Calcium Phosphorus Magnesium Ferritin Total Bilirubin AST ALT Lactate Dehydrogenase C-Reactive Protein Albumin Triglycerides Arterial Blood Glucose 143 H Arterial Blood Ionized Calcium Urine Creatinine Coronavirus (PCR) Crossmatch 02/17/21 02/17/21 02/17/21 04:14 04:14 04:14 WBC RBC 2.14 L Hgb 6.9 L Hct 21.0 L MCV 98 H MCH MCHC RDW 15.8 H Plt Count Lymph % (Auto) Lymph # (Auto) Seg Neutrophils % Seg Neuts % (Manual) Lymphocytes % (Manual) Monocytes % (Manual) Nucleated RBC % Seg Neutrophils # Seg Neutrophils # Man Lymphocytes # (Manual) Monocytes # (Manual) Eosinophils # (Manual) INR D-Dimer ABG pH POC ABG pCO2 POC ABG pO2 ABG pO2 ABG HCO3 ABG O2 Saturation ABG Base Excess ABG Hemoglobin ABG Oxyhemoglobin ABG Sodium ABG Potassium ABG Chloride ABG Glucose Oxyhemoglobin Carboxyhemoglobin Sodium Potassium Chloride Carbon Dioxide BUN Creatinine Glucose POC Glucose Hemoglobin A1c Lactic Acid Calcium Phosphorus Magnesium Ferritin 894.0 H Total Bilirubin AST ALT Lactate Dehydrogenase 399 H C-Reactive Protein 22.10 H Albumin Triglycerides Arterial Blood Glucose Arterial Blood Ionized Calcium Urine Creatinine Coronavirus (PCR) Crossmatch 02/17/21 02/17/21 02/17/21 06:06 07:45 12:25 WBC RBC Hgb 7.6 L Hct 22.8 L MCV MCH MCHC RDW Plt Count Lymph % (Auto) Lymph # (Auto) Seg Neutrophils % Seg Neuts % (Manual) Lymphocytes % (Manual) Monocytes % (Manual) Nucleated RBC % Seg Neutrophils # Seg Neutrophils # Man Lymphocytes # (Manual) Monocytes # (Manual) Eosinophils # (Manual) INR D-Dimer ABG pH POC ABG pCO2 POC ABG pO2 ABG pO2 ABG HCO3 ABG O2 Saturation ABG Base Excess ABG Hemoglobin ABG Oxyhemoglobin ABG Sodium ABG Potassium ABG Chloride ABG Glucose Oxyhemoglobin Carboxyhemoglobin Sodium Potassium Chloride Carbon Dioxide BUN Creatinine Glucose POC Glucose 134 H Hemoglobin A1c Lactic Acid Calcium Phosphorus Magnesium Ferritin Total Bilirubin AST ALT Lactate Dehydrogenase C-Reactive Protein Albumin Triglycerides Arterial Blood Glucose Arterial Blood Ionized Calcium Urine Creatinine Coronavirus (PCR) Crossmatch See Detail 02/17/21 02/17/21 02/17/21 12:35 17:56 23:34 WBC RBC Hgb Hct MCV MCH MCHC RDW Plt Count Lymph % (Auto) Lymph # (Auto) Seg Neutrophils % Seg Neuts % (Manual) Lymphocytes % (Manual) Monocytes % (Manual) Nucleated RBC % Seg Neutrophils # Seg Neutrophils # Man Lymphocytes # (Manual) Monocytes # (Manual) Eosinophils # (Manual) INR D-Dimer ABG pH POC ABG pCO2 POC ABG pO2 ABG pO2 ABG HCO3 ABG O2 Saturation ABG Base Excess ABG Hemoglobin ABG Oxyhemoglobin ABG Sodium ABG Potassium ABG Chloride ABG Glucose Oxyhemoglobin Carboxyhemoglobin Sodium Potassium Chloride Carbon Dioxide BUN Creatinine Glucose POC Glucose 114 H 128 H 120 H Hemoglobin A1c Lactic Acid Calcium Phosphorus Magnesium Ferritin Total Bilirubin AST ALT Lactate Dehydrogenase C-Reactive Protein Albumin Triglycerides Arterial Blood Glucose Arterial Blood Ionized Calcium Urine Creatinine Coronavirus (PCR) Crossmatch 02/18/21 02/18/21 02/18/21 04:03 04:55 05:02 WBC RBC 2.40 L Hgb 7.5 L Hct 23.1 L MCV 96 H MCH MCHC RDW 16.8 H Plt Count Lymph % (Auto) Lymph # (Auto) Seg Neutrophils % Seg Neuts % (Manual) Lymphocytes % (Manual) Monocytes % (Manual) Nucleated RBC % Seg Neutrophils # Seg Neutrophils # Man Lymphocytes # (Manual) Monocytes # (Manual) Eosinophils # (Manual) INR D-Dimer ABG pH 7.219 L POC ABG pCO2 58.7 H POC ABG pO2 64.2 L ABG pO2 ABG HCO3 ABG O2 Saturation ABG Base Excess ABG Hemoglobin ABG Oxyhemoglobin ABG Sodium 130.5 L ABG Potassium ABG Chloride ABG Glucose 147 H Oxyhemoglobin Carboxyhemoglobin Sodium 134 L Potassium Chloride 97.9 L Carbon Dioxide BUN 64 H Creatinine 6.5 H Glucose 135 H POC Glucose Hemoglobin A1c Lactic Acid Calcium 8.0 L Phosphorus Magnesium Ferritin Total Bilirubin AST ALT Lactate Dehydrogenase C-Reactive Protein Albumin Triglycerides Arterial Blood Glucose 147 H Arterial Blood Ionized Calcium Urine Creatinine Coronavirus (PCR) Crossmatch 02/18/21 02/18/21 02/18/21 05:27 10:00 11:51 WBC RBC Hgb Hct MCV MCH MCHC RDW Plt Count Lymph % (Auto) Lymph # (Auto) Seg Neutrophils % Seg Neuts % (Manual) Lymphocytes % (Manual) Monocytes % (Manual) Nucleated RBC % Seg Neutrophils # Seg Neutrophils # Man Lymphocytes # (Manual) Monocytes # (Manual) Eosinophils # (Manual) INR D-Dimer ABG pH POC ABG pCO2 POC ABG pO2 ABG pO2 ABG HCO3 ABG O2 Saturation ABG Base Excess ABG Hemoglobin ABG Oxyhemoglobin ABG Sodium ABG Potassium ABG Chloride ABG Glucose Oxyhemoglobin Carboxyhemoglobin Sodium Potassium Chloride Carbon Dioxide BUN Creatinine Glucose POC Glucose 130 H 123 H Hemoglobin A1c Lactic Acid Calcium Phosphorus Magnesium Ferritin Total Bilirubin AST ALT Lactate Dehydrogenase C-Reactive Protein Albumin Triglycerides Arterial Blood Glucose Arterial Blood Ionized Calcium Urine Creatinine Coronavirus (PCR) Positive A Crossmatch 02/18/21 02/18/21 02/19/21 18:10 23:35 05:00 WBC RBC Hgb Hct MCV MCH MCHC RDW Plt Count Lymph % (Auto) Lymph # (Auto) Seg Neutrophils % Seg Neuts % (Manual) Lymphocytes % (Manual) Monocytes % (Manual) Nucleated RBC % Seg Neutrophils # Seg Neutrophils # Man Lymphocytes # (Manual) Monocytes # (Manual) Eosinophils # (Manual) INR D-Dimer ABG pH 7.232 L POC ABG pCO2 64.3 H POC ABG pO2 ABG pO2 ABG HCO3 ABG O2 Saturation ABG Base Excess ABG Hemoglobin 8.1 L ABG Oxyhemoglobin ABG Sodium 133.5 L ABG Potassium ABG Chloride ABG Glucose 148 H Oxyhemoglobin Carboxyhemoglobin 1.6 H Sodium Potassium Chloride Carbon Dioxide BUN Creatinine Glucose POC Glucose 123 H 137 H Hemoglobin A1c Lactic Acid Calcium Phosphorus Magnesium Ferritin Total Bilirubin AST ALT Lactate Dehydrogenase C-Reactive Protein Albumin Triglycerides Arterial Blood Glucose 148 H Arterial Blood Ionized Calcium Urine Creatinine Coronavirus (PCR) Crossmatch 02/19/21 02/19/21 02/19/21 05:12 05:45 05:45 WBC RBC Hgb Hct MCV MCH MCHC RDW Plt Count Lymph % (Auto) Lymph # (Auto) Seg Neutrophils % Seg Neuts % (Manual) Lymphocytes % (Manual) Monocytes % (Manual) Nucleated RBC % Seg Neutrophils # Seg Neutrophils # Man Lymphocytes # (Manual) Monocytes # (Manual) Eosinophils # (Manual) INR D-Dimer 4840.82 H ABG pH POC ABG pCO2 POC ABG pO2 ABG pO2 ABG HCO3 ABG O2 Saturation ABG Base Excess ABG Hemoglobin ABG Oxyhemoglobin ABG Sodium ABG Potassium ABG Chloride ABG Glucose Oxyhemoglobin Carboxyhemoglobin Sodium 135 L Potassium Chloride 97.8 L Carbon Dioxide BUN 58 H Creatinine 5.6 H Glucose 140 H POC Glucose 134 H Hemoglobin A1c Lactic Acid Calcium Phosphorus Magnesium Ferritin Total Bilirubin AST ALT Lactate Dehydrogenase 345 H C-Reactive Protein 15.20 H Albumin Triglycerides 195 H Arterial Blood Glucose Arterial Blood Ionized Calcium Urine Creatinine Coronavirus (PCR) Crossmatch 02/19/21 02/19/21 02/19/21 05:45 12:00 17:48 WBC RBC Hgb Hct MCV MCH MCHC RDW Plt Count Lymph % (Auto) Lymph # (Auto) Seg Neutrophils % Seg Neuts % (Manual) Lymphocytes % (Manual) Monocytes % (Manual) Nucleated RBC % Seg Neutrophils # Seg Neutrophils # Man Lymphocytes # (Manual) Monocytes # (Manual) Eosinophils # (Manual) INR D-Dimer ABG pH POC ABG pCO2 POC ABG pO2 ABG pO2 ABG HCO3 ABG O2 Saturation ABG Base Excess ABG Hemoglobin ABG Oxyhemoglobin ABG Sodium ABG Potassium ABG Chloride ABG Glucose Oxyhemoglobin Carboxyhemoglobin Sodium Potassium Chloride Carbon Dioxide BUN Creatinine Glucose POC Glucose 122 H 119 H Hemoglobin A1c Lactic Acid Calcium Phosphorus Magnesium Ferritin 951.8 H Total Bilirubin AST ALT Lactate Dehydrogenase C-Reactive Protein Albumin Triglycerides Arterial Blood Glucose Arterial Blood Ionized Calcium Urine Creatinine Coronavirus (PCR) Crossmatch 02/20/21 02/20/21 02/20/21 03:20 04:00 11:48 WBC RBC Hgb Hct MCV MCH MCHC RDW Plt Count Lymph % (Auto) Lymph # (Auto) Seg Neutrophils % Seg Neuts % (Manual) Lymphocytes % (Manual) Monocytes % (Manual) Nucleated RBC % Seg Neutrophils # Seg Neutrophils # Man Lymphocytes # (Manual) Monocytes # (Manual) Eosinophils # (Manual) INR D-Dimer ABG pH 7.276 L POC ABG pCO2 57.3 H POC ABG pO2 71.0 L ABG pO2 ABG HCO3 ABG O2 Saturation ABG Base Excess ABG Hemoglobin 8.2 L ABG Oxyhemoglobin 91.9 L ABG Sodium 128.1 L ABG Potassium 4.8 H ABG Chloride ABG Glucose Oxyhemoglobin Carboxyhemoglobin 1.6 H Sodium 136 L Potassium Chloride Carbon Dioxide BUN 69 H Creatinine 6.4 H Glucose POC Glucose 131 H Hemoglobin A1c Lactic Acid Calcium 8.1 L Phosphorus Magnesium Ferritin Total Bilirubin AST ALT Lactate Dehydrogenase C-Reactive Protein Albumin Triglycerides Arterial Blood Glucose Arterial Blood Ionized Calcium 4.5 L Urine Creatinine Coronavirus (PCR) Crossmatch 02/20/21 02/20/21 02/21/21 18:05 23:28 02:53 WBC RBC Hgb Hct MCV MCH MCHC RDW Plt Count Lymph % (Auto) Lymph # (Auto) Seg Neutrophils % Seg Neuts % (Manual) Lymphocytes % (Manual) Monocytes % (Manual) Nucleated RBC % Seg Neutrophils # Seg Neutrophils # Man Lymphocytes # (Manual) Monocytes # (Manual) Eosinophils # (Manual) INR D-Dimer ABG pH 7.288 L POC ABG pCO2 52.7 H POC ABG pO2 81.5 L ABG pO2 ABG HCO3 ABG O2 Saturation ABG Base Excess ABG Hemoglobin 8.5 L ABG Oxyhemoglobin 93.6 L ABG Sodium 132.5 L ABG Potassium 4.6 H ABG Chloride ABG Glucose 106 H Oxyhemoglobin Carboxyhemoglobin 1.6 H Sodium Potassium Chloride Carbon Dioxide BUN Creatinine Glucose POC Glucose 114 H 118 H Hemoglobin A1c Lactic Acid Calcium Phosphorus Magnesium Ferritin Total Bilirubin AST ALT Lactate Dehydrogenase C-Reactive Protein Albumin Triglycerides Arterial Blood Glucose 106 H Arterial Blood Ionized Calcium 4.4 L Urine Creatinine Coronavirus (PCR) Crossmatch 02/21/21 02/21/21 02/21/21 05:29 11:42 16:35 WBC RBC Hgb Hct MCV MCH MCHC RDW Plt Count Lymph % (Auto) Lymph # (Auto) Seg Neutrophils % Seg Neuts % (Manual) Lymphocytes % (Manual) Monocytes % (Manual) Nucleated RBC % Seg Neutrophils # Seg Neutrophils # Man Lymphocytes # (Manual) Monocytes # (Manual) Eosinophils # (Manual) INR D-Dimer ABG pH POC ABG pCO2 POC ABG pO2 ABG pO2 ABG HCO3 ABG O2 Saturation ABG Base Excess ABG Hemoglobin ABG Oxyhemoglobin ABG Sodium ABG Potassium ABG Chloride ABG Glucose Oxyhemoglobin Carboxyhemoglobin Sodium Potassium 5.6 H Chloride 97.6 L Carbon Dioxide BUN 68 H Creatinine 5.7 H Glucose 160 H POC Glucose 111 H 131 H Hemoglobin A1c Lactic Acid Calcium 8.0 L Phosphorus 7.90 H Magnesium 2.60 H Ferritin Total Bilirubin AST ALT Lactate Dehydrogenase C-Reactive Protein Albumin Triglycerides Arterial Blood Glucose Arterial Blood Ionized Calcium Urine Creatinine Coronavirus (PCR) Crossmatch 02/21/21 02/22/21 02/22/21 17:17 00:04 04:22 WBC RBC Hgb Hct MCV MCH MCHC RDW Plt Count Lymph % (Auto) Lymph # (Auto) Seg Neutrophils % Seg Neuts % (Manual) Lymphocytes % (Manual) Monocytes % (Manual) Nucleated RBC % Seg Neutrophils # Seg Neutrophils # Man Lymphocytes # (Manual) Monocytes # (Manual) Eosinophils # (Manual) INR D-Dimer ABG pH 7.250 L POC ABG pCO2 60.1 H POC ABG pO2 57.6 L ABG pO2 ABG HCO3 ABG O2 Saturation ABG Base Excess ABG Hemoglobin 8.8 L ABG Oxyhemoglobin 87.0 L ABG Sodium 133.4 L ABG Potassium 5.1 H ABG Chloride ABG Glucose 124 H Oxyhemoglobin Carboxyhemoglobin Sodium Potassium Chloride Carbon Dioxide BUN Creatinine Glucose POC Glucose 135 H 121 H Hemoglobin A1c Lactic Acid Calcium Phosphorus Magnesium Ferritin Total Bilirubin AST ALT Lactate Dehydrogenase C-Reactive Protein Albumin Triglycerides Arterial Blood Glucose 124 H Arterial Blood Ionized Calcium Urine Creatinine Coronavirus (PCR) Crossmatch 02/22/21 02/22/21 02/22/21 05:33 09:41 09:41 WBC 13.2 H RBC 2.35 L Hgb 7.5 L Hct 22.7 L MCV 96 H MCH MCHC RDW 17.0 H Plt Count Lymph % (Auto) Lymph # (Auto) Seg Neutrophils % Seg Neuts % (Manual) 93.0 H Lymphocytes % (Manual) 4.0 L Monocytes % (Manual) Nucleated RBC % 1.0 H Seg Neutrophils # Seg Neutrophils # Man 12.3 H Lymphocytes # (Manual) 0.5 L Monocytes # (Manual) Eosinophils # (Manual) INR D-Dimer ABG pH POC ABG pCO2 POC ABG pO2 ABG pO2 ABG HCO3 ABG O2 Saturation ABG Base Excess ABG Hemoglobin ABG Oxyhemoglobin ABG Sodium ABG Potassium ABG Chloride ABG Glucose Oxyhemoglobin Carboxyhemoglobin Sodium Potassium 5.4 H Chloride Carbon Dioxide BUN 61 H Creatinine 5.5 H Glucose 117 H POC Glucose 114 H Hemoglobin A1c Lactic Acid Calcium 8.3 L Phosphorus Magnesium Ferritin Total Bilirubin AST ALT Lactate Dehydrogenase C-Reactive Protein Albumin Triglycerides Arterial Blood Glucose Arterial Blood Ionized Calcium Urine Creatinine Coronavirus (PCR) Crossmatch 02/22/21 02/22/21 02/23/21 12:08 17:06 04:00 WBC RBC Hgb Hct MCV MCH MCHC RDW Plt Count Lymph % (Auto) Lymph # (Auto) Seg Neutrophils % Seg Neuts % (Manual) Lymphocytes % (Manual) Monocytes % (Manual) Nucleated RBC % Seg Neutrophils # Seg Neutrophils # Man Lymphocytes # (Manual) Monocytes # (Manual) Eosinophils # (Manual) INR D-Dimer ABG pH 7.246 L POC ABG pCO2 POC ABG pO2 ABG pO2 119.4 H ABG HCO3 26.6 H ABG O2 Saturation ABG Base Excess ABG Hemoglobin 8.8 L ABG Oxyhemoglobin ABG Sodium ABG Potassium ABG Chloride ABG Glucose Oxyhemoglobin Carboxyhemoglobin Sodium Potassium Chloride Carbon Dioxide BUN Creatinine Glucose POC Glucose 133 H 114 H Hemoglobin A1c Lactic Acid Calcium Phosphorus Magnesium Ferritin Total Bilirubin AST ALT Lactate Dehydrogenase C-Reactive Protein Albumin Triglycerides Arterial Blood Glucose Arterial Blood Ionized Calcium Urine Creatinine Coronavirus (PCR) Crossmatch 02/23/21 02/23/21 02/24/21 06:20 11:42 03:43 WBC RBC Hgb Hct MCV MCH MCHC RDW Plt Count Lymph % (Auto) Lymph # (Auto) Seg Neutrophils % Seg Neuts % (Manual) Lymphocytes % (Manual) Monocytes % (Manual) Nucleated RBC % Seg Neutrophils # Seg Neutrophils # Man Lymphocytes # (Manual) Monocytes # (Manual) Eosinophils # (Manual) INR D-Dimer ABG pH 7.287 L POC ABG pCO2 54.7 H POC ABG pO2 ABG pO2 ABG HCO3 ABG O2 Saturation ABG Base Excess ABG Hemoglobin 8.5 L ABG Oxyhemoglobin ABG Sodium 135.6 L ABG Potassium ABG Chloride ABG Glucose 117 H Oxyhemoglobin Carboxyhemoglobin Sodium Potassium Chloride 97.6 L Carbon Dioxide BUN 79 H Creatinine 6.2 H Glucose POC Glucose 108 H Hemoglobin A1c Lactic Acid Calcium 8.3 L Phosphorus Magnesium Ferritin Total Bilirubin AST ALT Lactate Dehydrogenase C-Reactive Protein Albumin Triglycerides Arterial Blood Glucose 117 H Arterial Blood Ionized Calcium Urine Creatinine Coronavirus (PCR) Crossmatch 02/24/21 02/24/21 02/24/21 04:25 04:25 04:25 WBC 11.5 H RBC 2.47 L Hgb 7.7 L Hct 23.5 L MCV 95 H MCH MCHC RDW 16.7 H Plt Count Lymph % (Auto) Lymph # (Auto) Seg Neutrophils % Seg Neuts % (Manual) 82.0 H Lymphocytes % (Manual) 3.0 L Monocytes % (Manual) 11.0 H Nucleated RBC % Seg Neutrophils # Seg Neutrophils # Man 9.4 H Lymphocytes # (Manual) 0.3 L Monocytes # (Manual) 1.3 H Eosinophils # (Manual) INR D-Dimer 4695.21 H ABG pH POC ABG pCO2 POC ABG pO2 ABG pO2 ABG HCO3 ABG O2 Saturation ABG Base Excess ABG Hemoglobin ABG Oxyhemoglobin ABG Sodium ABG Potassium ABG Chloride ABG Glucose Oxyhemoglobin Carboxyhemoglobin Sodium Potassium Chloride Carbon Dioxide BUN 68 H Creatinine 4.9 H Glucose 113 H POC Glucose Hemoglobin A1c Lactic Acid Calcium Phosphorus Magnesium Ferritin Total Bilirubin AST ALT Lactate Dehydrogenase C-Reactive Protein 7.20 H Albumin Triglycerides Arterial Blood Glucose Arterial Blood Ionized Calcium Urine Creatinine Coronavirus (PCR) Crossmatch 02/24/21 02/24/21 02/24/21 04:25 05:01 11:12 WBC RBC Hgb Hct MCV MCH MCHC RDW Plt Count Lymph % (Auto) Lymph # (Auto) Seg Neutrophils % Seg Neuts % (Manual) Lymphocytes % (Manual) Monocytes % (Manual) Nucleated RBC % Seg Neutrophils # Seg Neutrophils # Man Lymphocytes # (Manual) Monocytes # (Manual) Eosinophils # (Manual) INR D-Dimer ABG pH POC ABG pCO2 POC ABG pO2 ABG pO2 ABG HCO3 ABG O2 Saturation ABG Base Excess ABG Hemoglobin ABG Oxyhemoglobin ABG Sodium ABG Potassium ABG Chloride ABG Glucose Oxyhemoglobin Carboxyhemoglobin Sodium Potassium Chloride Carbon Dioxide BUN Creatinine Glucose POC Glucose 116 H 112 H Hemoglobin A1c Lactic Acid Calcium Phosphorus Magnesium Ferritin 1116.0 H Total Bilirubin AST ALT Lactate Dehydrogenase C-Reactive Protein Albumin Triglycerides Arterial Blood Glucose Arterial Blood Ionized Calcium Urine Creatinine Coronavirus (PCR) Crossmatch 02/24/21 02/25/21 02/25/21 18:11 03:42 05:58 WBC RBC Hgb Hct MCV MCH MCHC RDW Plt Count Lymph % (Auto) Lymph # (Auto) Seg Neutrophils % Seg Neuts % (Manual) Lymphocytes % (Manual) Monocytes % (Manual) Nucleated RBC % Seg Neutrophils # Seg Neutrophils # Man Lymphocytes # (Manual) Monocytes # (Manual) Eosinophils # (Manual) INR D-Dimer ABG pH 7.287 L POC ABG pCO2 58.2 H POC ABG pO2 ABG pO2 ABG HCO3 ABG O2 Saturation ABG Base Excess ABG Hemoglobin 8.4 L ABG Oxyhemoglobin 93.7 L ABG Sodium ABG Potassium ABG Chloride ABG Glucose 104 H Oxyhemoglobin Carboxyhemoglobin Sodium Potassium Chloride Carbon Dioxide BUN Creatinine Glucose POC Glucose 109 H 109 H Hemoglobin A1c Lactic Acid Calcium Phosphorus Magnesium Ferritin Total Bilirubin AST ALT Lactate Dehydrogenase C-Reactive Protein Albumin Triglycerides Arterial Blood Glucose 104 H Arterial Blood Ionized Calcium 4.5 L Urine Creatinine Coronavirus (PCR) Crossmatch 02/25/21 02/25/21 02/25/21 09:03 13:47 16:50 WBC RBC Hgb Hct MCV MCH MCHC RDW Plt Count Lymph % (Auto) Lymph # (Auto) Seg Neutrophils % Seg Neuts % (Manual) Lymphocytes % (Manual) Monocytes % (Manual) Nucleated RBC % Seg Neutrophils # Seg Neutrophils # Man Lymphocytes # (Manual) Monocytes # (Manual) Eosinophils # (Manual) INR D-Dimer 6536.84 H ABG pH POC ABG pCO2 POC ABG pO2 ABG pO2 ABG HCO3 ABG O2 Saturation ABG Base Excess ABG Hemoglobin ABG Oxyhemoglobin ABG Sodium ABG Potassium ABG Chloride ABG Glucose Oxyhemoglobin Carboxyhemoglobin Sodium Potassium Chloride Carbon Dioxide BUN Creatinine Glucose POC Glucose 144 H 114 H Hemoglobin A1c Lactic Acid Calcium Phosphorus Magnesium Ferritin Total Bilirubin AST ALT Lactate Dehydrogenase C-Reactive Protein Albumin Triglycerides Arterial Blood Glucose Arterial Blood Ionized Calcium Urine Creatinine Coronavirus (PCR) Crossmatch 02/25/21 02/26/21 02/26/21 23:53 03:35 05:36 WBC RBC Hgb Hct MCV MCH MCHC RDW Plt Count Lymph % (Auto) Lymph # (Auto) Seg Neutrophils % Seg Neuts % (Manual) Lymphocytes % (Manual) Monocytes % (Manual) Nucleated RBC % Seg Neutrophils # Seg Neutrophils # Man Lymphocytes # (Manual) Monocytes # (Manual) Eosinophils # (Manual) INR D-Dimer ABG pH 7.179 L POC ABG pCO2 76.6 H POC ABG pO2 ABG pO2 ABG HCO3 ABG O2 Saturation ABG Base Excess ABG Hemoglobin 9.0 L ABG Oxyhemoglobin ABG Sodium 134.8 L ABG Potassium ABG Chloride ABG Glucose 118 H Oxyhemoglobin Carboxyhemoglobin Sodium Potassium Chloride Carbon Dioxide BUN Creatinine Glucose POC Glucose 110 H 113 H Hemoglobin A1c Lactic Acid Calcium Phosphorus Magnesium Ferritin Total Bilirubin AST ALT Lactate Dehydrogenase C-Reactive Protein Albumin Triglycerides Arterial Blood Glucose 118 H Arterial Blood Ionized Calcium Urine Creatinine Coronavirus (PCR) Crossmatch 02/26/21 02/26/21 02/26/21 05:48 05:48 05:48 WBC 11.4 H RBC 2.40 L Hgb 7.5 L Hct 23.2 L MCV 97 H MCH MCHC RDW 17.4 H Plt Count Lymph % (Auto) Lymph # (Auto) Seg Neutrophils % Seg Neuts % (Manual) Lymphocytes % (Manual) Monocytes % (Manual) Nucleated RBC % Seg Neutrophils # Seg Neutrophils # Man Lymphocytes # (Manual) Monocytes # (Manual) Eosinophils # (Manual) INR D-Dimer ABG pH POC ABG pCO2 POC ABG pO2 ABG pO2 ABG HCO3 ABG O2 Saturation ABG Base Excess ABG Hemoglobin ABG Oxyhemoglobin ABG Sodium ABG Potassium ABG Chloride ABG Glucose Oxyhemoglobin Carboxyhemoglobin Sodium Potassium Chloride Carbon Dioxide BUN 72 H Creatinine 4.5 H Glucose 112 H POC Glucose Hemoglobin A1c Lactic Acid Calcium 7.7 L Phosphorus Magnesium Ferritin 867.8 H Total Bilirubin AST ALT Lactate Dehydrogenase C-Reactive Protein 5.90 H Albumin Triglycerides Arterial Blood Glucose Arterial Blood Ionized Calcium Urine Creatinine Coronavirus (PCR) Crossmatch 02/26/21 02/26/21 02/26/21 08:00 11:29 18:13 WBC RBC Hgb Hct MCV MCH MCHC RDW Plt Count Lymph % (Auto) Lymph # (Auto) Seg Neutrophils % Seg Neuts % (Manual) Lymphocytes % (Manual) Monocytes % (Manual) Nucleated RBC % Seg Neutrophils # Seg Neutrophils # Man Lymphocytes # (Manual) Monocytes # (Manual) Eosinophils # (Manual) INR D-Dimer ABG pH 7.228 L POC ABG pCO2 70.2 H POC ABG pO2 79.7 L ABG pO2 ABG HCO3 ABG O2 Saturation ABG Base Excess ABG Hemoglobin 7.6 L ABG Oxyhemoglobin 93.2 L ABG Sodium 135.7 L ABG Potassium ABG Chloride ABG Glucose 119 H Oxyhemoglobin Carboxyhemoglobin Sodium Potassium Chloride Carbon Dioxide BUN Creatinine Glucose POC Glucose 110 H 115 H Hemoglobin A1c Lactic Acid Calcium Phosphorus Magnesium Ferritin Total Bilirubin AST ALT Lactate Dehydrogenase C-Reactive Protein Albumin Triglycerides Arterial Blood Glucose 119 H Arterial Blood Ionized Calcium Urine Creatinine Coronavirus (PCR) Crossmatch 02/26/21 02/27/21 02/27/21 23:18 04:00 05:04 WBC RBC Hgb Hct MCV MCH MCHC RDW Plt Count Lymph % (Auto) Lymph # (Auto) Seg Neutrophils % Seg Neuts % (Manual) Lymphocytes % (Manual) Monocytes % (Manual) Nucleated RBC % Seg Neutrophils # Seg Neutrophils # Man Lymphocytes # (Manual) Monocytes # (Manual) Eosinophils # (Manual) INR D-Dimer ABG pH 7.316 L POC ABG pCO2 49.0 H POC ABG pO2 111.2 H ABG pO2 ABG HCO3 ABG O2 Saturation ABG Base Excess ABG Hemoglobin 7.7 L ABG Oxyhemoglobin ABG Sodium 135.0 L ABG Potassium ABG Chloride ABG Glucose 113 H Oxyhemoglobin Carboxyhemoglobin Sodium Potassium Chloride Carbon Dioxide BUN Creatinine Glucose POC Glucose 114 H 112 H Hemoglobin A1c Lactic Acid Calcium Phosphorus Magnesium Ferritin Total Bilirubin AST ALT Lactate Dehydrogenase C-Reactive Protein Albumin Triglycerides Arterial Blood Glucose 113 H Arterial Blood Ionized Calcium 4.4 L Urine Creatinine Coronavirus (PCR) Crossmatch 02/27/21 02/27/21 02/27/21 12:13 18:30 23:40 WBC RBC Hgb Hct MCV MCH MCHC RDW Plt Count Lymph % (Auto) Lymph # (Auto) Seg Neutrophils % Seg Neuts % (Manual) Lymphocytes % (Manual) Monocytes % (Manual) Nucleated RBC % Seg Neutrophils # Seg Neutrophils # Man Lymphocytes # (Manual) Monocytes # (Manual) Eosinophils # (Manual) INR D-Dimer ABG pH POC ABG pCO2 POC ABG pO2 ABG pO2 ABG HCO3 ABG O2 Saturation ABG Base Excess ABG Hemoglobin ABG Oxyhemoglobin ABG Sodium ABG Potassium ABG Chloride ABG Glucose Oxyhemoglobin Carboxyhemoglobin Sodium Potassium Chloride Carbon Dioxide BUN Creatinine Glucose POC Glucose 127 H 129 H 115 H Hemoglobin A1c Lactic Acid Calcium Phosphorus Magnesium Ferritin Total Bilirubin AST ALT Lactate Dehydrogenase C-Reactive Protein Albumin Triglycerides Arterial Blood Glucose Arterial Blood Ionized Calcium Urine Creatinine Coronavirus (PCR) Crossmatch 02/28/21 02/28/21 02/28/21 04:07 05:29 10:22 WBC RBC Hgb Hct MCV MCH MCHC RDW Plt Count Lymph % (Auto) Lymph # (Auto) Seg Neutrophils % Seg Neuts % (Manual) Lymphocytes % (Manual) Monocytes % (Manual) Nucleated RBC % Seg Neutrophils # Seg Neutrophils # Man Lymphocytes # (Manual) Monocytes # (Manual) Eosinophils # (Manual) INR D-Dimer ABG pH 7.260 L POC ABG pCO2 67.6 H POC ABG pO2 ABG pO2 ABG HCO3 ABG O2 Saturation ABG Base Excess ABG Hemoglobin 7.9 L ABG Oxyhemoglobin ABG Sodium ABG Potassium ABG Chloride ABG Glucose 129 H Oxyhemoglobin Carboxyhemoglobin Sodium Potassium Chloride Carbon Dioxide BUN 68 H Creatinine 3.5 H Glucose 117 H POC Glucose 117 H Hemoglobin A1c Lactic Acid Calcium 7.9 L Phosphorus Magnesium Ferritin Total Bilirubin AST ALT Lactate Dehydrogenase C-Reactive Protein Albumin Triglycerides Arterial Blood Glucose 129 H Arterial Blood Ionized Calcium Urine Creatinine Coronavirus (PCR) Crossmatch 02/28/21 02/28/21 03/01/21 11:51 17:26 00:31 WBC RBC Hgb Hct MCV MCH MCHC RDW Plt Count Lymph % (Auto) Lymph # (Auto) Seg Neutrophils % Seg Neuts % (Manual) Lymphocytes % (Manual) Monocytes % (Manual) Nucleated RBC % Seg Neutrophils # Seg Neutrophils # Man Lymphocytes # (Manual) Monocytes # (Manual) Eosinophils # (Manual) INR D-Dimer ABG pH POC ABG pCO2 POC ABG pO2 ABG pO2 ABG HCO3 ABG O2 Saturation ABG Base Excess ABG Hemoglobin ABG Oxyhemoglobin ABG Sodium ABG Potassium ABG Chloride ABG Glucose Oxyhemoglobin Carboxyhemoglobin Sodium Potassium Chloride Carbon Dioxide BUN Creatinine Glucose POC Glucose 123 H 121 H 112 H Hemoglobin A1c Lactic Acid Calcium Phosphorus Magnesium Ferritin Total Bilirubin AST ALT Lactate Dehydrogenase C-Reactive Protein Albumin Triglycerides Arterial Blood Glucose Arterial Blood Ionized Calcium Urine Creatinine Coronavirus (PCR) Crossmatch 03/01/21 03/01/21 03/01/21 03:29 06:00 06:17 WBC RBC Hgb Hct MCV MCH MCHC RDW Plt Count Lymph % (Auto) Lymph # (Auto) Seg Neutrophils % Seg Neuts % (Manual) Lymphocytes % (Manual) Monocytes % (Manual) Nucleated RBC % Seg Neutrophils # Seg Neutrophils # Man Lymphocytes # (Manual) Monocytes # (Manual) Eosinophils # (Manual) INR D-Dimer ABG pH POC ABG pCO2 52.3 H POC ABG pO2 115.1 H ABG pO2 ABG HCO3 ABG O2 Saturation ABG Base Excess ABG Hemoglobin 7.5 L ABG Oxyhemoglobin ABG Sodium 135.6 L ABG Potassium ABG Chloride ABG Glucose 117 H Oxyhemoglobin Carboxyhemoglobin 1.6 H Sodium Potassium Chloride Carbon Dioxide BUN 78 H Creatinine 3.6 H Glucose 110 H POC Glucose 121 H Hemoglobin A1c Lactic Acid Calcium 8.0 L Phosphorus Magnesium Ferritin Total Bilirubin AST ALT Lactate Dehydrogenase C-Reactive Protein Albumin Triglycerides Arterial Blood Glucose 117 H Arterial Blood Ionized Calcium Urine Creatinine Coronavirus (PCR) Crossmatch 03/01/21 03/02/21 03/02/21 23:22 04:43 05:46 WBC RBC Hgb Hct MCV MCH MCHC RDW Plt Count Lymph % (Auto) Lymph # (Auto) Seg Neutrophils % Seg Neuts % (Manual) Lymphocytes % (Manual) Monocytes % (Manual) Nucleated RBC % Seg Neutrophils # Seg Neutrophils # Man Lymphocytes # (Manual) Monocytes # (Manual) Eosinophils # (Manual) INR D-Dimer ABG pH POC ABG pCO2 POC ABG pO2 ABG pO2 ABG HCO3 ABG O2 Saturation ABG Base Excess ABG Hemoglobin ABG Oxyhemoglobin ABG Sodium ABG Potassium ABG Chloride ABG Glucose Oxyhemoglobin Carboxyhemoglobin Sodium Potassium Chloride Carbon Dioxide BUN 89 H Creatinine 3.6 H Glucose 116 H POC Glucose 116 H 126 H Hemoglobin A1c Lactic Acid Calcium 7.7 L Phosphorus Magnesium Ferritin Total Bilirubin AST ALT Lactate Dehydrogenase C-Reactive Protein Albumin Triglycerides Arterial Blood Glucose Arterial Blood Ionized Calcium Urine Creatinine Coronavirus (PCR) Crossmatch 03/02/21 03/02/21 03/02/21 08:35 11:35 15:17 WBC RBC 2.15 L Hgb 7.1 L Hct 20.4 L MCV 95 H MCH 33 H MCHC 35 H RDW 17.6 H Plt Count Lymph % (Auto) Lymph # (Auto) Seg Neutrophils % Seg Neuts % (Manual) Lymphocytes % (Manual) Monocytes % (Manual) Nucleated RBC % Seg Neutrophils # Seg Neutrophils # Man Lymphocytes # (Manual) Monocytes # (Manual) Eosinophils # (Manual) INR D-Dimer ABG pH POC ABG pCO2 POC ABG pO2 ABG pO2 ABG HCO3 ABG O2 Saturation ABG Base Excess ABG Hemoglobin ABG Oxyhemoglobin ABG Sodium ABG Potassium ABG Chloride ABG Glucose Oxyhemoglobin Carboxyhemoglobin Sodium Potassium Chloride Carbon Dioxide BUN Creatinine Glucose POC Glucose 117 H Hemoglobin A1c Lactic Acid Calcium Phosphorus Magnesium Ferritin Total Bilirubin AST ALT Lactate Dehydrogenase C-Reactive Protein Albumin Triglycerides Arterial Blood Glucose Arterial Blood Ionized Calcium Urine Creatinine Coronavirus (PCR) Positive A Crossmatch 03/02/21 03/02/21 03/02/21 17:50 23:26 Unknown WBC RBC Hgb Hct MCV MCH MCHC RDW Plt Count Lymph % (Auto) Lymph # (Auto) Seg Neutrophils % Seg Neuts % (Manual) Lymphocytes % (Manual) Monocytes % (Manual) Nucleated RBC % Seg Neutrophils # Seg Neutrophils # Man Lymphocytes # (Manual) Monocytes # (Manual) Eosinophils # (Manual) INR D-Dimer ABG pH 7.282 L POC ABG pCO2 POC ABG pO2 ABG pO2 150.8 H ABG HCO3 30.1 H ABG O2 Saturation ABG Base Excess ABG Hemoglobin 6.9 L ABG Oxyhemoglobin ABG Sodium ABG Potassium ABG Chloride ABG Glucose Oxyhemoglobin Carboxyhemoglobin Sodium Potassium Chloride Carbon Dioxide BUN Creatinine Glucose POC Glucose 131 H 143 H Hemoglobin A1c Lactic Acid Calcium Phosphorus Magnesium Ferritin Total Bilirubin AST ALT Lactate Dehydrogenase C-Reactive Protein Albumin Triglycerides Arterial Blood Glucose Arterial Blood Ionized Calcium Urine Creatinine Coronavirus (PCR) Crossmatch 03/03/21 03/03/21 03/03/21 03:50 05:46 17:16 WBC RBC Hgb Hct MCV MCH MCHC RDW Plt Count Lymph % (Auto) Lymph # (Auto) Seg Neutrophils % Seg Neuts % (Manual) Lymphocytes % (Manual) Monocytes % (Manual) Nucleated RBC % Seg Neutrophils # Seg Neutrophils # Man Lymphocytes # (Manual) Monocytes # (Manual) Eosinophils # (Manual) INR D-Dimer ABG pH 7.276 L POC ABG pCO2 POC ABG pO2 ABG pO2 ABG HCO3 31.7 H ABG O2 Saturation ABG Base Excess 4.3 H ABG Hemoglobin 6.7 L ABG Oxyhemoglobin ABG Sodium ABG Potassium ABG Chloride ABG Glucose Oxyhemoglobin 93.5 L Carboxyhemoglobin Sodium Potassium Chloride Carbon Dioxide BUN Creatinine Glucose POC Glucose 107 H 109 H Hemoglobin A1c Lactic Acid Calcium Phosphorus Magnesium Ferritin Total Bilirubin AST ALT Lactate Dehydrogenase C-Reactive Protein Albumin Triglycerides Arterial Blood Glucose Arterial Blood Ionized Calcium Urine Creatinine Coronavirus (PCR) Crossmatch 03/03/21 03/03/21 03/03/21 23:34 Unknown Unknown WBC 12.4 H RBC 2.26 L Hgb 6.8 L Hct 21.8 L MCV 96 H MCH MCHC 31 L RDW 18.5 H Plt Count Lymph % (Auto) Lymph # (Auto) Seg Neutrophils % Seg Neuts % (Manual) Lymphocytes % (Manual) Monocytes % (Manual) Nucleated RBC % Seg Neutrophils # Seg Neutrophils # Man Lymphocytes # (Manual) Monocytes # (Manual) Eosinophils # (Manual) INR D-Dimer ABG pH POC ABG pCO2 POC ABG pO2 ABG pO2 ABG HCO3 ABG O2 Saturation ABG Base Excess ABG Hemoglobin ABG Oxyhemoglobin ABG Sodium ABG Potassium ABG Chloride ABG Glucose Oxyhemoglobin Carboxyhemoglobin Sodium Potassium Chloride Carbon Dioxide BUN 70 H Creatinine 2.6 H Glucose 118 H POC Glucose 135 H Hemoglobin A1c Lactic Acid Calcium Phosphorus Magnesium Ferritin Total Bilirubin AST ALT Lactate Dehydrogenase C-Reactive Protein Albumin Triglycerides Arterial Blood Glucose Arterial Blood Ionized Calcium Urine Creatinine Coronavirus (PCR) Crossmatch 03/03/21 03/03/21 03/04/21 Unknown Unknown 03:15 WBC RBC Hgb Hct MCV MCH MCHC RDW Plt Count Lymph % (Auto) Lymph # (Auto) Seg Neutrophils % Seg Neuts % (Manual) Lymphocytes % (Manual) Monocytes % (Manual) Nucleated RBC % Seg Neutrophils # Seg Neutrophils # Man Lymphocytes # (Manual) Monocytes # (Manual) Eosinophils # (Manual) INR 1.15 H D-Dimer ABG pH 7.285 L POC ABG pCO2 POC ABG pO2 ABG pO2 ABG HCO3 28.8 H ABG O2 Saturation ABG Base Excess ABG Hemoglobin 8.3 L ABG Oxyhemoglobin ABG Sodium ABG Potassium ABG Chloride ABG Glucose Oxyhemoglobin 93.4 L Carboxyhemoglobin Sodium Potassium Chloride Carbon Dioxide BUN Creatinine Glucose POC Glucose Hemoglobin A1c Lactic Acid Calcium Phosphorus Magnesium Ferritin Total Bilirubin AST ALT Lactate Dehydrogenase C-Reactive Protein Albumin Triglycerides Arterial Blood Glucose Arterial Blood Ionized Calcium Urine Creatinine Coronavirus (PCR) Crossmatch See Detail 03/04/21 03/04/21 03/04/21 03:28 05:39 11:47 WBC RBC Hgb Hct MCV MCH MCHC RDW Plt Count Lymph % (Auto) Lymph # (Auto) Seg Neutrophils % Seg Neuts % (Manual) Lymphocytes % (Manual) Monocytes % (Manual) Nucleated RBC % Seg Neutrophils # Seg Neutrophils # Man Lymphocytes # (Manual) Monocytes # (Manual) Eosinophils # (Manual) INR D-Dimer ABG pH 7.285 L POC ABG pCO2 62.0 H POC ABG pO2 80.9 L ABG pO2 ABG HCO3 ABG O2 Saturation ABG Base Excess ABG Hemoglobin 8.3 L ABG Oxyhemoglobin ABG Sodium ABG Potassium ABG Chloride ABG Glucose 144 H Oxyhemoglobin Carboxyhemoglobin Sodium Potassium Chloride Carbon Dioxide BUN Creatinine Glucose POC Glucose 123 H 125 H Hemoglobin A1c Lactic Acid Calcium Phosphorus Magnesium Ferritin Total Bilirubin AST ALT Lactate Dehydrogenase C-Reactive Protein Albumin Triglycerides Arterial Blood Glucose 144 H Arterial Blood Ionized Calcium Urine Creatinine Coronavirus (PCR) Crossmatch 03/04/21 03/04/21 03/04/21 16:49 Unknown Unknown WBC 13.9 H RBC 2.58 L Hgb 7.7 L Hct 24.0 L MCV MCH MCHC RDW 20.3 H Plt Count Lymph % (Auto) Lymph # (Auto) Seg Neutrophils % Seg Neuts % (Manual) Lymphocytes % (Manual) Monocytes % (Manual) Nucleated RBC % Seg Neutrophils # Seg Neutrophils # Man Lymphocytes # (Manual) Monocytes # (Manual) Eosinophils # (Manual) INR D-Dimer ABG pH POC ABG pCO2 POC ABG pO2 ABG pO2 ABG HCO3 ABG O2 Saturation ABG Base Excess ABG Hemoglobin ABG Oxyhemoglobin ABG Sodium ABG Potassium ABG Chloride ABG Glucose Oxyhemoglobin Carboxyhemoglobin Sodium Potassium Chloride Carbon Dioxide BUN 78 H Creatinine 2.5 H Glucose 131 H POC Glucose 120 H Hemoglobin A1c Lactic Acid Calcium 8.2 L Phosphorus Magnesium Ferritin Total Bilirubin AST ALT Lactate Dehydrogenase C-Reactive Protein Albumin Triglycerides Arterial Blood Glucose Arterial Blood Ionized Calcium Urine Creatinine Coronavirus (PCR) Crossmatch 03/05/21 03/05/21 03/05/21 00:31 04:18 05:30 WBC RBC Hgb Hct MCV MCH MCHC RDW Plt Count Lymph % (Auto) Lymph # (Auto) Seg Neutrophils % Seg Neuts % (Manual) Lymphocytes % (Manual) Monocytes % (Manual) Nucleated RBC % Seg Neutrophils # Seg Neutrophils # Man Lymphocytes # (Manual) Monocytes # (Manual) Eosinophils # (Manual) INR D-Dimer ABG pH 7.160 L POC ABG pCO2 86.3 H POC ABG pO2 55.9 L ABG pO2 ABG HCO3 ABG O2 Saturation ABG Base Excess ABG Hemoglobin 8.3 L ABG Oxyhemoglobin 82.1 L ABG Sodium ABG Potassium ABG Chloride 108.0 H ABG Glucose 149 H Oxyhemoglobin Carboxyhemoglobin 1.7 H Sodium Potassium Chloride Carbon Dioxide BUN Creatinine Glucose POC Glucose 129 H 133 H Hemoglobin A1c Lactic Acid Calcium Phosphorus Magnesium Ferritin Total Bilirubin AST ALT Lactate Dehydrogenase C-Reactive Protein Albumin Triglycerides Arterial Blood Glucose 149 H Arterial Blood Ionized Calcium Urine Creatinine Coronavirus (PCR) Crossmatch 03/05/21 03/05/21 03/05/21 09:00 11:31 16:55 WBC RBC Hgb Hct MCV MCH MCHC RDW Plt Count Lymph % (Auto) Lymph # (Auto) Seg Neutrophils % Seg Neuts % (Manual) Lymphocytes % (Manual) Monocytes % (Manual) Nucleated RBC % Seg Neutrophils # Seg Neutrophils # Man Lymphocytes # (Manual) Monocytes # (Manual) Eosinophils # (Manual) INR D-Dimer ABG pH POC ABG pCO2 POC ABG pO2 ABG pO2 ABG HCO3 ABG O2 Saturation ABG Base Excess ABG Hemoglobin ABG Oxyhemoglobin ABG Sodium ABG Potassium ABG Chloride ABG Glucose Oxyhemoglobin Carboxyhemoglobin Sodium Potassium Chloride Carbon Dioxide BUN 84 H Creatinine 2.3 H Glucose 143 H POC Glucose 133 H 146 H Hemoglobin A1c Lactic Acid Calcium 8.0 L Phosphorus Magnesium Ferritin Total Bilirubin AST ALT Lactate Dehydrogenase C-Reactive Protein Albumin Triglycerides Arterial Blood Glucose Arterial Blood Ionized Calcium Urine Creatinine Coronavirus (PCR) Crossmatch 03/05/21 03/05/21 03/05/21 23:20 Unknown Unknown WBC RBC Hgb Hct MCV MCH MCHC RDW Plt Count Lymph % (Auto) Lymph # (Auto) Seg Neutrophils % Seg Neuts % (Manual) Lymphocytes % (Manual) Monocytes % (Manual) Nucleated RBC % Seg Neutrophils # Seg Neutrophils # Man Lymphocytes # (Manual) Monocytes # (Manual) Eosinophils # (Manual) INR D-Dimer ABG pH POC ABG pCO2 POC ABG pO2 ABG pO2 ABG HCO3 ABG O2 Saturation ABG Base Excess ABG Hemoglobin ABG Oxyhemoglobin ABG Sodium ABG Potassium ABG Chloride ABG Glucose Oxyhemoglobin Carboxyhemoglobin Sodium Potassium Chloride Carbon Dioxide BUN Creatinine Glucose POC Glucose 144 H Hemoglobin A1c Lactic Acid Calcium Phosphorus Magnesium Ferritin Total Bilirubin AST ALT Lactate Dehydrogenase C-Reactive Protein Albumin Triglycerides Arterial Blood Glucose Arterial Blood Ionized Calcium Urine Creatinine 65.9 H 66.1 H Coronavirus (PCR) Crossmatch 03/06/21 03/06/21 03/06/21 03:23 05:20 11:59 WBC RBC Hgb Hct MCV MCH MCHC RDW Plt Count Lymph % (Auto) Lymph # (Auto) Seg Neutrophils % Seg Neuts % (Manual) Lymphocytes % (Manual) Monocytes % (Manual) Nucleated RBC % Seg Neutrophils # Seg Neutrophils # Man Lymphocytes # (Manual) Monocytes # (Manual) Eosinophils # (Manual) INR D-Dimer ABG pH 7.239 L POC ABG pCO2 67.0 H POC ABG pO2 76.6 L ABG pO2 ABG HCO3 ABG O2 Saturation ABG Base Excess ABG Hemoglobin 8.0 L ABG Oxyhemoglobin 92.4 L ABG Sodium 145.6 H ABG Potassium ABG Chloride 108.0 H ABG Glucose 134 H Oxyhemoglobin Carboxyhemoglobin 2.1 H Sodium Potassium Chloride Carbon Dioxide BUN Creatinine Glucose POC Glucose 114 H 132 H Hemoglobin A1c Lactic Acid Calcium Phosphorus Magnesium Ferritin Total Bilirubin AST ALT Lactate Dehydrogenase C-Reactive Protein Albumin Triglycerides Arterial Blood Glucose 134 H Arterial Blood Ionized Calcium Urine Creatinine Coronavirus (PCR) Crossmatch 03/06/21 03/06/21 03/06/21 17:35 17:45 18:01 WBC RBC Hgb Hct MCV MCH MCHC RDW Plt Count Lymph % (Auto) Lymph # (Auto) Seg Neutrophils % Seg Neuts % (Manual) Lymphocytes % (Manual) Monocytes % (Manual) Nucleated RBC % Seg Neutrophils # Seg Neutrophils # Man Lymphocytes # (Manual) Monocytes # (Manual) Eosinophils # (Manual) INR D-Dimer ABG pH 7.286 L POC ABG pCO2 POC ABG pO2 ABG pO2 78.1 L ABG HCO3 33.7 H ABG O2 Saturation ABG Base Excess 5.5 H ABG Hemoglobin 10.3 L ABG Oxyhemoglobin ABG Sodium ABG Potassium ABG Chloride ABG Glucose Oxyhemoglobin 92.3 L Carboxyhemoglobin Sodium 148 H Potassium Chloride 107.1 H Carbon Dioxide 33 H BUN 91 H Creatinine 2.1 H Glucose 149 H POC Glucose 132 H Hemoglobin A1c Lactic Acid Calcium 8.2 L Phosphorus Magnesium Ferritin Total Bilirubin AST ALT Lactate Dehydrogenase C-Reactive Protein Albumin Triglycerides Arterial Blood Glucose Arterial Blood Ionized Calcium Urine Creatinine Coronavirus (PCR) Crossmatch 03/06/21 03/07/21 03/07/21 23:44 03:30 03:33 WBC RBC Hgb Hct MCV MCH MCHC RDW Plt Count Lymph % (Auto) Lymph # (Auto) Seg Neutrophils % Seg Neuts % (Manual) Lymphocytes % (Manual) Monocytes % (Manual) Nucleated RBC % Seg Neutrophils # Seg Neutrophils # Man Lymphocytes # (Manual) Monocytes # (Manual) Eosinophils # (Manual) INR D-Dimer ABG pH POC ABG pCO2 60.0 H POC ABG pO2 76.2 L ABG pO2 ABG HCO3 ABG O2 Saturation ABG Base Excess ABG Hemoglobin 7.7 L ABG Oxyhemoglobin 93.2 L ABG Sodium 148.6 H ABG Potassium ABG Chloride 112.0 H ABG Glucose 173 H Oxyhemoglobin Carboxyhemoglobin 1.7 H Sodium 147 H Potassium Chloride 107.4 H Carbon Dioxide BUN 90 H Creatinine 2.0 H Glucose 158 H POC Glucose 144 H Hemoglobin A1c Lactic Acid Calcium 8.0 L Phosphorus Magnesium Ferritin Total Bilirubin AST ALT Lactate Dehydrogenase C-Reactive Protein Albumin Triglycerides Arterial Blood Glucose 173 H Arterial Blood Ionized Calcium Urine Creatinine Coronavirus (PCR) Crossmatch 03/07/21 03/07/21 03/07/21 05:11 08:01 12:29 WBC 11.8 H RBC 2.45 L Hgb 7.2 L Hct 23.4 L MCV 96 H MCH MCHC 31 L RDW 19.7 H Plt Count Lymph % (Auto) 7.3 L Lymph # (Auto) 0.9 L Seg Neutrophils % 82.8 H Seg Neuts % (Manual) Lymphocytes % (Manual) Monocytes % (Manual) Nucleated RBC % Seg Neutrophils # 9.8 H Seg Neutrophils # Man Lymphocytes # (Manual) Monocytes # (Manual) Eosinophils # (Manual) INR D-Dimer ABG pH POC ABG pCO2 POC ABG pO2 ABG pO2 ABG HCO3 ABG O2 Saturation ABG Base Excess ABG Hemoglobin ABG Oxyhemoglobin ABG Sodium ABG Potassium ABG Chloride ABG Glucose Oxyhemoglobin Carboxyhemoglobin Sodium Potassium Chloride Carbon Dioxide BUN Creatinine Glucose POC Glucose 144 H 117 H Hemoglobin A1c Lactic Acid Calcium Phosphorus Magnesium Ferritin Total Bilirubin AST ALT Lactate Dehydrogenase C-Reactive Protein Albumin Triglycerides Arterial Blood Glucose Arterial Blood Ionized Calcium Urine Creatinine Coronavirus (PCR) Crossmatch 03/07/21 03/07/21 03/08/21 17:51 23:21 02:59 WBC RBC Hgb Hct MCV MCH MCHC RDW Plt Count Lymph % (Auto) Lymph # (Auto) Seg Neutrophils % Seg Neuts % (Manual) Lymphocytes % (Manual) Monocytes % (Manual) Nucleated RBC % Seg Neutrophils # Seg Neutrophils # Man Lymphocytes # (Manual) Monocytes # (Manual) Eosinophils # (Manual) INR D-Dimer ABG pH POC ABG pCO2 61.8 H POC ABG pO2 76.5 L ABG pO2 ABG HCO3 ABG O2 Saturation ABG Base Excess ABG Hemoglobin 8.3 L ABG Oxyhemoglobin 92.6 L ABG Sodium 150.5 H ABG Potassium ABG Chloride 114.0 H ABG Glucose 170 H Oxyhemoglobin Carboxyhemoglobin 1.9 H Sodium Potassium Chloride Carbon Dioxide BUN Creatinine Glucose POC Glucose 140 H 141 H Hemoglobin A1c Lactic Acid Calcium Phosphorus Magnesium Ferritin Total Bilirubin AST ALT Lactate Dehydrogenase C-Reactive Protein Albumin Triglycerides Arterial Blood Glucose 170 H Arterial Blood Ionized Calcium Urine Creatinine Coronavirus (PCR) Crossmatch 03/08/21 03/08/21 03/08/21 04:20 05:07 11:59 WBC RBC Hgb Hct MCV MCH MCHC RDW Plt Count Lymph % (Auto) Lymph # (Auto) Seg Neutrophils % Seg Neuts % (Manual) Lymphocytes % (Manual) Monocytes % (Manual) Nucleated RBC % Seg Neutrophils # Seg Neutrophils # Man Lymphocytes # (Manual) Monocytes # (Manual) Eosinophils # (Manual) INR D-Dimer ABG pH POC ABG pCO2 POC ABG pO2 ABG pO2 ABG HCO3 ABG O2 Saturation ABG Base Excess ABG Hemoglobin ABG Oxyhemoglobin ABG Sodium ABG Potassium ABG Chloride ABG Glucose Oxyhemoglobin Carboxyhemoglobin Sodium 151 H Potassium Chloride 112.1 H Carbon Dioxide 31 H BUN 90 H Creatinine 1.7 H Glucose 166 H POC Glucose 149 H 136 H Hemoglobin A1c Lactic Acid Calcium 7.9 L Phosphorus Magnesium Ferritin Total Bilirubin AST ALT Lactate Dehydrogenase C-Reactive Protein Albumin Triglycerides Arterial Blood Glucose Arterial Blood Ionized Calcium Urine Creatinine Coronavirus (PCR) Crossmatch 03/08/21 03/08/21 03/09/21 17:33 23:25 04:45 WBC RBC Hgb Hct MCV MCH MCHC RDW Plt Count Lymph % (Auto) Lymph # (Auto) Seg Neutrophils % Seg Neuts % (Manual) Lymphocytes % (Manual) Monocytes % (Manual) Nucleated RBC % Seg Neutrophils # Seg Neutrophils # Man Lymphocytes # (Manual) Monocytes # (Manual) Eosinophils # (Manual) INR D-Dimer ABG pH POC ABG pCO2 POC ABG pO2 ABG pO2 ABG HCO3 ABG O2 Saturation ABG Base Excess ABG Hemoglobin ABG Oxyhemoglobin ABG Sodium ABG Potassium ABG Chloride ABG Glucose Oxyhemoglobin Carboxyhemoglobin Sodium Potassium Chloride Carbon Dioxide BUN Creatinine Glucose POC Glucose 136 H 143 H 157 H Hemoglobin A1c Lactic Acid Calcium Phosphorus Magnesium Ferritin Total Bilirubin AST ALT Lactate Dehydrogenase C-Reactive Protein Albumin Triglycerides Arterial Blood Glucose Arterial Blood Ionized Calcium Urine Creatinine Coronavirus (PCR) Crossmatch 03/09/21 03/09/21 03/09/21 05:00 08:00 08:00 WBC 17.5 H RBC 2.41 L Hgb 7.0 L Hct 23.4 L MCV 97 H MCH MCHC 30 L RDW 20.1 H Plt Count Lymph % (Auto) Lymph # (Auto) Seg Neutrophils % Seg Neuts % (Manual) Lymphocytes % (Manual) Monocytes % (Manual) Nucleated RBC % Seg Neutrophils # Seg Neutrophils # Man Lymphocytes # (Manual) Monocytes # (Manual) Eosinophils # (Manual) INR D-Dimer ABG pH 7.256 L POC ABG pCO2 77.8 H POC ABG pO2 71.2 L ABG pO2 ABG HCO3 ABG O2 Saturation ABG Base Excess ABG Hemoglobin 8.2 L ABG Oxyhemoglobin 91.7 L ABG Sodium 152.4 H ABG Potassium ABG Chloride 115.0 H ABG Glucose 190 H Oxyhemoglobin Carboxyhemoglobin Sodium 157 H Potassium Chloride 115.2 H Carbon Dioxide 35 H BUN 96 H Creatinine 1.7 H Glucose 167 H POC Glucose Hemoglobin A1c Lactic Acid Calcium 7.8 L Phosphorus Magnesium Ferritin Total Bilirubin AST ALT Lactate Dehydrogenase C-Reactive Protein Albumin Triglycerides Arterial Blood Glucose 190 H Arterial Blood Ionized Calcium Urine Creatinine Coronavirus (PCR) Crossmatch 05/10/21 11:43 WBC RBC Hgb Hct MCV MCH MCHC RDW Plt Count Lymph % (Auto) Lymph # (Auto) Seg Neutrophils % Seg Neuts % (Manual) Lymphocytes % (Manual) Monocytes % (Manual) Nucleated RBC % Seg Neutrophils # Seg Neutrophils # Man Lymphocytes # (Manual) Monocytes # (Manual) Eosinophils # (Manual) INR D-Dimer ABG pH POC ABG pCO2 POC ABG pO2 ABG pO2 ABG HCO3 ABG O2 Saturation ABG Base Excess ABG Hemoglobin ABG Oxyhemoglobin ABG Sodium ABG Potassium ABG Chloride ABG Glucose Oxyhemoglobin Carboxyhemoglobin Sodium Potassium Chloride Carbon Dioxide BUN Creatinine Glucose POC Glucose 145 H Hemoglobin A1c Lactic Acid Calcium Phosphorus Magnesium Ferritin Total Bilirubin AST ALT Lactate Dehydrogenase C-Reactive Protein Albumin Triglycerides Arterial Blood Glucose Arterial Blood Ionized Calcium Urine Creatinine Coronavirus (PCR) Crossmatch Chest x-ray: report reviewed, image reviewed (no change)
[2021-03-09] MEDS: ACETAMINOPHEN 325 MG/10.15 ML ORAL LIQD UNIT DOSE FEEDTUBE PRN (20:49)
[2021-03-10] MEDS: fentaNYL DRIP Premix 2,000 MCG/100 ML BAG IV SCH ×5 (00:49→22:30)
[2021-03-10] MEDS: NORepinephrine/NS 4 MG-250 ML 4 MG/250 ML BAG IV SCH ×3 (02:48→22:31)
[2021-03-10] MEDS: dexmedeTOMIDine 1,000 MCG in SODIUM CHLORIDE 0.9% 250ML 250 ML IV SCH ×4 (03:38→22:51)
[2021-03-10 04:47] LABS: Hematocrit 23.2 % (35.5-45.6); Hemoglobin 6.9 gm/dl (11.8-15.2); Mean Corpuscular HGB Conc 30 % (32-34); Mean Corpuscular Volume 98 fl (84-94); Platelet Count 309 K/mm3 (140-440); Red Blood Count 2.37 M/mm3 (3.65-5.03)
[2021-03-10 05:08] LABS: Calcium 7.9 mg/dL (8.4-10.2)
[2021-03-10] MEDS: HEPARIN 5,000 UNIT/1 ML VIAL SUB-Q SCH ×3 (06:02→22:21)
[2021-03-10] MEDS: ACETAMINOPHEN 325 MG/10.15 ML ORAL LIQD UNIT DOSE FEEDTUBE PRN (06:32)
--- NOTE | 2021-03-10 09:01 | Progress Note ---
Assessment and Plan - Patient Problems (1) Acute respiratory failure due to COVID-19 Current Visit: Yes Status: Acute (2) Acute respiratory failure with hypoxia Current Visit: Yes Status: Acute (3) Pneumonia Current Visit: Yes Status: Acute Qualifiers: Pneumonia type: due to unspecified organism Laterality: bilateral Lung location: unspecified part of lung Qualified Code(s): J18.9 - Pneumonia, unspecified organism (4) Exposure to COVID-19 virus Current Visit: Yes Status: Acute (5) Encounter for hemodialysis for acute renal failure Current Visit: Yes Status: Resolved (6) Fever Current Visit: Yes Status: Acute (7) Sacral decubitus ulcer Current Visit: Yes Status: Acute (8) Hypernatremia Current Visit: Yes Status: Acute (9) Leukocytosis (leucocytosis) Current Visit: Yes Status: Acute Subjective Principal diagnosis: Acute respiratory failure Interval history: on vent off HD Fever Objective Vital Signs - 12hr 03/09/21 03/09/21 03/09/21 21:30 22:00 22:30 Temperature Pulse Rate 99 H 100 H 103 H Respiratory 28 H 29 H 28 H Rate Blood Pressure 77/53 83/50 114/64 O2 Sat by Pulse 96 97 97 Oximetry 03/09/21 03/09/21 03/09/21 23:00 23:13 23:30 Temperature Pulse Rate 107 H 105 H 107 H Respiratory 29 H 29 H 29 H Rate Blood Pressure 110/53 110/53 100/52 O2 Sat by Pulse 94 94 93 Oximetry 03/09/21 03/10/21 03/10/21 23:38 00:00 00:01 Temperature 101.4 F H Pulse Rate 104 H 104 H Respiratory 28 H 29 H Rate Blood Pressure 120/62 98/53 O2 Sat by Pulse 97 95 Oximetry 03/10/21 03/10/21 03/10/21 00:30 01:00 01:30 Temperature Pulse Rate 103 H 102 H 103 H Respiratory 24 22 24 Rate Blood Pressure 118/52 121/59 118/55 O2 Sat by Pulse 95 95 95 Oximetry 03/10/21 03/10/21 03/10/21 02:00 02:30 03:00 Temperature Pulse Rate 103 H 103 H 104 H Respiratory 18 19 22 Rate Blood Pressure 119/59 123/58 111/57 O2 Sat by Pulse 95 95 96 Oximetry 03/10/21 03/10/2121 03:30 04:00 04:30 Temperature 100.4 F H Pulse Rate 105 H 102 H 104 H Respiratory 22 21 25 H Rate Blood Pressure 126/57 135/55 135/55 O2 Sat by Pulse 95 96 97 Oximetry 03/10/21 03/10/21 03/10/21 05:01 05:30 06:00 Temperature Pulse Rate 105 H 102 H 102 H Respiratory 28 H 20 Rate Blood Pressure 143/117 121/52 124/60 O2 Sat by Pulse 93 95 94 Oximetry 03/10/21 03/10/21 03/10/21 06:30 07:00 07:31 Temperature 99.6 F Pulse Rate 102 H 107 H 103 H Respiratory 16 16 28 H Rate Blood Pressure 124/59 105/50 119/54 O2 Sat by Pulse 94 91 95 Oximetry 03/10/21 03/10/21 03/10/21 07:56 08:00 08:30 Temperature Pulse Rate 102 H 101 H 96 H Respiratory 28 H 28 H Rate Blood Pressure 127/57 131/64 107/50 O2 Sat by Pulse 97 97 95 Oximetry Constitutional: other (sedated, ) Eyes: non-icteric ENT: other (orally intubated, critically ill) Neck: supple Effort: mildly labored (tachypneic) Ascultation: Bilateral: clear, other (coarse BS bilaterally) Percussion: Bilateral: not dull Cardiovascular: regular rate and rhythm (no mrg) Gastrointestinal: normoactive bowel sounds Integumentary: normal Extremities: no cyanosis, pink and warm, anasarca Neurologic: unable to assess Psychiatric: other (unable to assess) CBC and BMP: 03/10/21 04:31 03/10/21 04:31 ABG, PT/INR, D-dimer: ABG ABG pH 7.252 (7.320-7.450) L 03/10/21 03:31 POC ABG pCO2 76.2 mmHg (32.0-48.0) H 03/10/21 03:31 ABG pCO2 72.4 mm Hg 03/06/21 17:45 POC ABG pO2 89.0 mmHg (83-108) 03/10/21 03:31 ABG pO2 78.1 mm Hg (80.0-90.0) L 03/06/21 17:45 POC ABG HCO3 32.8 03/10/21 03:31 ABG O2 Saturation 96.6 (0-100) 03/10/21 03:31 PT/INR, D-dimer PT 14.6 Sec. (12.2-14.9) 03/03/21 Unknown INR 1.15 (0.87-1.13) H 03/03/21 Unknown D-Dimer 6536.84 ng/mlDDU (0-234) H 02/25/21 09:03 Abnormal lab findings: Abnormal Labs 01/22/21 01/22/21 01/22/21 22:39 22:57 22:57 WBC RBC Hgb Hct MCV MCH MCHC RDW Plt Count Lymph % (Auto) 6.6 L Lymph # (Auto) 0.5 L Seg Neutrophils % 87.6 H Seg Neuts % (Manual) Lymphocytes % (Manual) Monocytes % (Manual) Nucleated RBC % Seg Neutrophils # Seg Neutrophils # Man Lymphocytes # (Manual) Monocytes # (Manual) Eosinophils # (Manual) INR D-Dimer ABG pH POC ABG pCO2 POC ABG pO2 ABG pO2 ABG HCO3 ABG O2 Saturation ABG Base Excess ABG Hemoglobin ABG Oxyhemoglobin ABG Sodium ABG Potassium ABG Chloride ABG Glucose Oxyhemoglobin Carboxyhemoglobin Sodium 129 L Potassium 3.4 L Chloride 90.4 L Carbon Dioxide BUN 34 H Creatinine 1.5 H Glucose 146 H POC Glucose Hemoglobin A1c Lactic Acid Calcium 7.8 L Phosphorus Magnesium Ferritin Total Bilirubin AST 75 H ALT 57 H Lactate Dehydrogenase C-Reactive Protein Albumin 2.9 L Triglycerides Arterial Blood Glucose Arterial Blood Ionized Calcium Urine Creatinine 301.2 H Coronavirus (PCR) Crossmatch 01/22/21 01/22/21 01/22/21 22:57 22:57 22:57 WBC RBC Hgb Hct MCV MCH MCHC RDW Plt Count Lymph % (Auto) Lymph # (Auto) Seg Neutrophils % Seg Neuts % (Manual) Lymphocytes % (Manual) Monocytes % (Manual) Nucleated RBC % Seg Neutrophils # Seg Neutrophils # Man Lymphocytes # (Manual) Monocytes # (Manual) Eosinophils # (Manual) INR D-Dimer 1173.89 H ABG pH POC ABG pCO2 POC ABG pO2 ABG pO2 ABG HCO3 ABG O2 Saturation ABG Base Excess ABG Hemoglobin ABG Oxyhemoglobin ABG Sodium ABG Potassium ABG Chloride ABG Glucose Oxyhemoglobin Carboxyhemoglobin Sodium Potassium Chloride Carbon Dioxide BUN Creatinine Glucose 149 H POC Glucose Hemoglobin A1c Lactic Acid 2.10 H* Calcium Phosphorus Magnesium Ferritin Total Bilirubin AST ALT Lactate Dehydrogenase 685 H C-Reactive Protein 30.40 H Albumin Triglycerides Arterial Blood Glucose Arterial Blood Ionized Calcium Urine Creatinine Coronavirus (PCR) Crossmatch 01/22/21 01/23/21 01/23/21 22:57 08:41 10:01 WBC RBC Hgb Hct MCV MCH MCHC RDW Plt Count Lymph % (Auto) Lymph # (Auto) Seg Neutrophils % Seg Neuts % (Manual) Lymphocytes % (Manual) Monocytes % (Manual) Nucleated RBC % Seg Neutrophils # Seg Neutrophils # Man Lymphocytes # (Manual) Monocytes # (Manual) Eosinophils # (Manual) INR D-Dimer ABG pH POC ABG pCO2 POC ABG pO2 ABG pO2 ABG HCO3 ABG O2 Saturation ABG Base Excess ABG Hemoglobin ABG Oxyhemoglobin ABG Sodium ABG Potassium ABG Chloride ABG Glucose Oxyhemoglobin Carboxyhemoglobin Sodium 131 L Potassium Chloride 88.7 L Carbon Dioxide 18 L BUN 36 H Creatinine 1.6 H Glucose 147 H POC Glucose Hemoglobin A1c Lactic Acid Calcium 7.5 L Phosphorus Magnesium Ferritin 1207.0 H Total Bilirubin AST ALT Lactate Dehydrogenase C-Reactive Protein Albumin Triglycerides Arterial Blood Glucose Arterial Blood Ionized Calcium Urine Creatinine Coronavirus (PCR) Positive A Crossmatch 01/23/21 01/23/21 01/24/21 20:49 Unknown 00:10 WBC RBC Hgb Hct MCV MCH MCHC RDW Plt Count Lymph % (Auto) Lymph # (Auto) Seg Neutrophils % Seg Neuts % (Manual) Lymphocytes % (Manual) Monocytes % (Manual) Nucleated RBC % Seg Neutrophils # Seg Neutrophils # Man Lymphocytes # (Manual) Monocytes # (Manual) Eosinophils # (Manual) INR D-Dimer ABG pH POC ABG pCO2 POC ABG pO2 ABG pO2 165.4 H ABG HCO3 ABG O2 Saturation ABG Base Excess -2.5 L ABG Hemoglobin ABG Oxyhemoglobin ABG Sodium ABG Potassium ABG Chloride ABG Glucose Oxyhemoglobin Carboxyhemoglobin Sodium 130 L Potassium Chloride 91.0 L Carbon Dioxide 20 L BUN 52 H Creatinine 3.8 H D Glucose 150 H POC Glucose 125 H Hemoglobin A1c Lactic Acid Calcium 8.0 L Phosphorus Magnesium Ferritin Total Bilirubin AST 42 H ALT Lactate Dehydrogenase C-Reactive Protein Albumin 2.4 L Triglycerides Arterial Blood Glucose Arterial Blood Ionized Calcium Urine Creatinine Coronavirus (PCR) Crossmatch 01/24/21 01/24/21 01/24/21 05:05 05:05 05:05 WBC 14.0 H RBC Hgb Hct MCV 95 H MCH 33 H MCHC RDW Plt Count Lymph % (Auto) Lymph # (Auto) Seg Neutrophils % Seg Neuts % (Manual) 91.0 H Lymphocytes % (Manual) 4.0 L Monocytes % (Manual) Nucleated RBC % Seg Neutrophils # Seg Neutrophils # Man 12.7 H Lymphocytes # (Manual) 0.6 L Monocytes # (Manual) Eosinophils # (Manual) INR D-Dimer 6159.48 H ABG pH POC ABG pCO2 POC ABG pO2 ABG pO2 ABG HCO3 ABG O2 Saturation ABG Base Excess ABG Hemoglobin ABG Oxyhemoglobin ABG Sodium ABG Potassium ABG Chloride ABG Glucose Oxyhemoglobin Carboxyhemoglobin Sodium Potassium Chloride Carbon Dioxide BUN Creatinine Glucose POC Glucose Hemoglobin A1c Lactic Acid Calcium Phosphorus Magnesium Ferritin 1178.0 H Total Bilirubin AST ALT Lactate Dehydrogenase C-Reactive Protein Albumin Triglycerides Arterial Blood Glucose Arterial Blood Ionized Calcium Urine Creatinine Coronavirus (PCR) Crossmatch 01/24/21 01/24/21 01/24/21 05:05 05:05 05:05 WBC RBC Hgb Hct MCV MCH MCHC RDW Plt Count Lymph % (Auto) Lymph # (Auto) Seg Neutrophils % Seg Neuts % (Manual) Lymphocytes % (Manual) Monocytes % (Manual) Nucleated RBC % Seg Neutrophils # Seg Neutrophils # Man Lymphocytes # (Manual) Monocytes # (Manual) Eosinophils # (Manual) INR D-Dimer ABG pH POC ABG pCO2 POC ABG pO2 ABG pO2 ABG HCO3 ABG O2 Saturation ABG Base Excess ABG Hemoglobin ABG Oxyhemoglobin ABG Sodium ABG Potassium ABG Chloride ABG Glucose Oxyhemoglobin Carboxyhemoglobin Sodium 132 L Potassium Chloride 93.1 L Carbon Dioxide 21 L BUN 57 H Creatinine 3.7 H Glucose 133 H POC Glucose Hemoglobin A1c Lactic Acid 2.20 H* Calcium 7.7 L Phosphorus Magnesium Ferritin Total Bilirubin AST ALT Lactate Dehydrogenase 658 H C-Reactive Protein 33.20 H Albumin 2.4 L Triglycerides Arterial Blood Glucose Arterial Blood Ionized Calcium Urine Creatinine Coronavirus (PCR) Crossmatch 01/24/21 01/24/21 01/24/21 05:34 06:00 17:35 WBC RBC Hgb Hct MCV MCH MCHC RDW Plt Count Lymph % (Auto) Lymph # (Auto) Seg Neutrophils % Seg Neuts % (Manual) Lymphocytes % (Manual) Monocytes % (Manual) Nucleated RBC % Seg Neutrophils # Seg Neutrophils # Man Lymphocytes # (Manual) Monocytes # (Manual) Eosinophils # (Manual) INR D-Dimer ABG pH POC ABG pCO2 POC ABG pO2 ABG pO2 ABG HCO3 ABG O2 Saturation ABG Base Excess ABG Hemoglobin ABG Oxyhemoglobin ABG Sodium ABG Potassium ABG Chloride ABG Glucose Oxyhemoglobin Carboxyhemoglobin Sodium Potassium Chloride Carbon Dioxide BUN Creatinine Glucose POC Glucose 136 H 137 H Hemoglobin A1c Lactic Acid Calcium Phosphorus Magnesium 2.80 H Ferritin Total Bilirubin AST ALT Lactate Dehydrogenase C-Reactive Protein Albumin Triglycerides Arterial Blood Glucose Arterial Blood Ionized Calcium Urine Creatinine Coronavirus (PCR) Crossmatch 01/25/21 01/25/21 01/25/21 04:15 05:40 05:40 WBC RBC Hgb Hct MCV 95 H MCH 33 H MCHC 35 H RDW Plt Count Lymph % (Auto) Lymph # (Auto) Seg Neutrophils % Seg Neuts % (Manual) 95.0 H Lymphocytes % (Manual) 3.0 L Monocytes % (Manual) Nucleated RBC % Seg Neutrophils # Seg Neutrophils # Man 7.8 H Lymphocytes # (Manual) 0.2 L Monocytes # (Manual) Eosinophils # (Manual) INR D-Dimer ABG pH POC ABG pCO2 POC ABG pO2 63.2 L ABG pO2 ABG HCO3 ABG O2 Saturation ABG Base Excess ABG Hemoglobin ABG Oxyhemoglobin 89.6 L ABG Sodium ABG Potassium ABG Chloride ABG Glucose 165 H Oxyhemoglobin Carboxyhemoglobin 0.3 L Sodium Potassium Chloride Carbon Dioxide BUN 67 H Creatinine 3.4 H Glucose 153 H POC Glucose Hemoglobin A1c Lactic Acid Calcium 7.5 L Phosphorus Magnesium Ferritin Total Bilirubin 1.40 H AST 62 H ALT Lactate Dehydrogenase C-Reactive Protein Albumin 2.6 L Triglycerides Arterial Blood Glucose 165 H Arterial Blood Ionized Calcium 4.3 L Urine Creatinine Coronavirus (PCR) Crossmatch 01/25/21 01/25/21 01/25/21 05:59 12:00 17:17 WBC RBC Hgb Hct MCV MCH MCHC RDW Plt Count Lymph % (Auto) Lymph # (Auto) Seg Neutrophils % Seg Neuts % (Manual) Lymphocytes % (Manual) Monocytes % (Manual) Nucleated RBC % Seg Neutrophils # Seg Neutrophils # Man Lymphocytes # (Manual) Monocytes # (Manual) Eosinophils # (Manual) INR D-Dimer ABG pH POC ABG pCO2 POC ABG pO2 ABG pO2 ABG HCO3 ABG O2 Saturation ABG Base Excess ABG Hemoglobin ABG Oxyhemoglobin ABG Sodium ABG Potassium ABG Chloride ABG Glucose Oxyhemoglobin Carboxyhemoglobin Sodium Potassium Chloride Carbon Dioxide BUN Creatinine Glucose POC Glucose 140 H 143 H 149 H Hemoglobin A1c Lactic Acid Calcium Phosphorus Magnesium Ferritin Total Bilirubin AST ALT Lactate Dehydrogenase C-Reactive Protein Albumin Triglycerides Arterial Blood Glucose Arterial Blood Ionized Calcium Urine Creatinine Coronavirus (PCR) Crossmatch 01/25/21 01/26/21 01/26/21 23:41 03:43 05:46 WBC RBC Hgb Hct MCV MCH MCHC RDW Plt Count Lymph % (Auto) Lymph # (Auto) Seg Neutrophils % Seg Neuts % (Manual) Lymphocytes % (Manual) Monocytes % (Manual) Nucleated RBC % Seg Neutrophils # Seg Neutrophils # Man Lymphocytes # (Manual) Monocytes # (Manual) Eosinophils # (Manual) INR D-Dimer ABG pH POC ABG pCO2 POC ABG pO2 70.0 L ABG pO2 ABG HCO3 ABG O2 Saturation ABG Base Excess ABG Hemoglobin ABG Oxyhemoglobin 91.9 L ABG Sodium ABG Potassium ABG Chloride 109.0 H ABG Glucose 165 H Oxyhemoglobin Carboxyhemoglobin Sodium Potassium Chloride Carbon Dioxide BUN Creatinine Glucose POC Glucose 132 H 161 H Hemoglobin A1c Lactic Acid Calcium Phosphorus Magnesium Ferritin Total Bilirubin AST ALT Lactate Dehydrogenase C-Reactive Protein Albumin Triglycerides Arterial Blood Glucose 165 H Arterial Blood Ionized Calcium 4.5 L Urine Creatinine Coronavirus (PCR) Crossmatch 01/26/21 01/26/21 01/26/21 05:47 05:47 05:47 WBC RBC Hgb Hct 35.3 L MCV 96 H MCH 33 H MCHC RDW Plt Count Lymph % (Auto) Lymph # (Auto) Seg Neutrophils % Seg Neuts % (Manual) 96.0 H Lymphocytes % (Manual) 2.0 L Monocytes % (Manual) Nucleated RBC % Seg Neutrophils # Seg Neutrophils # Man Lymphocytes # (Manual) 0.1 L Monocytes # (Manual) Eosinophils # (Manual) INR D-Dimer > 94718 H ABG pH POC ABG pCO2 POC ABG pO2 ABG pO2 ABG HCO3 ABG O2 Saturation ABG Base Excess ABG Hemoglobin ABG Oxyhemoglobin ABG Sodium ABG Potassium ABG Chloride ABG Glucose Oxyhemoglobin Carboxyhemoglobin Sodium Potassium Chloride Carbon Dioxide BUN 57 H Creatinine 2.2 H Glucose 185 H POC Glucose Hemoglobin A1c Lactic Acid Calcium 8.1 L Phosphorus Magnesium Ferritin Total Bilirubin AST ALT Lactate Dehydrogenase C-Reactive Protein Albumin Triglycerides Arterial Blood Glucose Arterial Blood Ionized Calcium Urine Creatinine Coronavirus (PCR) Crossmatch 01/26/21 01/26/21 01/26/21 05:47 05:47 05:47 WBC RBC Hgb Hct MCV MCH MCHC RDW Plt Count Lymph % (Auto) Lymph # (Auto) Seg Neutrophils % Seg Neuts % (Manual) Lymphocytes % (Manual) Monocytes % (Manual) Nucleated RBC % Seg Neutrophils # Seg Neutrophils # Man Lymphocytes # (Manual) Monocytes # (Manual) Eosinophils # (Manual) INR D-Dimer ABG pH POC ABG pCO2 POC ABG pO2 ABG pO2 ABG HCO3 ABG O2 Saturation ABG Base Excess ABG Hemoglobin ABG Oxyhemoglobin ABG Sodium ABG Potassium ABG Chloride ABG Glucose Oxyhemoglobin Carboxyhemoglobin Sodium Potassium Chloride 107.1 H Carbon Dioxide BUN 56 H Creatinine 2.2 H Glucose 188 H POC Glucose Hemoglobin A1c Lactic Acid Calcium 8.0 L Phosphorus Magnesium Ferritin 1178.0 H Total Bilirubin 1.50 H AST ALT Lactate Dehydrogenase 588 H C-Reactive Protein 40.10 H Albumin 2.2 L Triglycerides Arterial Blood Glucose Arterial Blood Ionized Calcium Urine Creatinine Coronavirus (PCR) Crossmatch 01/26/21 01/26/21 01/26/21 11:34 18:17 23:20 WBC RBC Hgb Hct MCV MCH MCHC RDW Plt Count Lymph % (Auto) Lymph # (Auto) Seg Neutrophils % Seg Neuts % (Manual) Lymphocytes % (Manual) Monocytes % (Manual) Nucleated RBC % Seg Neutrophils # Seg Neutrophils # Man Lymphocytes # (Manual) Monocytes # (Manual) Eosinophils # (Manual) INR D-Dimer ABG pH POC ABG pCO2 POC ABG pO2 ABG pO2 ABG HCO3 ABG O2 Saturation ABG Base Excess ABG Hemoglobin ABG Oxyhemoglobin ABG Sodium ABG Potassium ABG Chloride ABG Glucose Oxyhemoglobin Carboxyhemoglobin Sodium Potassium Chloride Carbon Dioxide BUN Creatinine Glucose POC Glucose 129 H 205 H 155 H Hemoglobin A1c Lactic Acid Calcium Phosphorus Magnesium Ferritin Total Bilirubin AST ALT Lactate Dehydrogenase C-Reactive Protein Albumin Triglycerides Arterial Blood Glucose Arterial Blood Ionized Calcium Urine Creatinine Coronavirus (PCR) Crossmatch 01/27/21 01/27/21 01/27/21 02:45 05:29 05:29 WBC RBC 3.58 L Hgb 11.7 L Hct 34.9 L MCV 97 H MCH 33 H MCHC RDW Plt Count Lymph % (Auto) Lymph # (Auto) Seg Neutrophils % Seg Neuts % (Manual) 88.0 H Lymphocytes % (Manual) 7.0 L Monocytes % (Manual) Nucleated RBC % Seg Neutrophils # Seg Neutrophils # Man Lymphocytes # (Manual) 0.5 L Monocytes # (Manual) Eosinophils # (Manual) INR D-Dimer ABG pH 7.319 L POC ABG pCO2 50.7 H POC ABG pO2 63.0 L ABG pO2 ABG HCO3 ABG O2 Saturation ABG Base Excess ABG Hemoglobin ABG Oxyhemoglobin ABG Sodium 145.2 H ABG Potassium 5.1 H ABG Chloride 114.0 H ABG Glucose 178 H Oxyhemoglobin Carboxyhemoglobin Sodium Potassium Chloride Carbon Dioxide BUN Creatinine Glucose POC Glucose Hemoglobin A1c Lactic Acid Calcium Phosphorus Magnesium 4.00 H Ferritin Total Bilirubin AST ALT Lactate Dehydrogenase C-Reactive Protein Albumin Triglycerides Arterial Blood Glucose 178 H Arterial Blood Ionized Calcium Urine Creatinine Coronavirus (PCR) Crossmatch 01/27/21 01/27/21 01/27/21 05:29 05:29 05:31 WBC RBC Hgb Hct MCV MCH MCHC RDW Plt Count Lymph % (Auto) Lymph # (Auto) Seg Neutrophils % Seg Neuts % (Manual) Lymphocytes % (Manual) Monocytes % (Manual) Nucleated RBC % Seg Neutrophils # Seg Neutrophils # Man Lymphocytes # (Manual) Monocytes # (Manual) Eosinophils # (Manual) INR D-Dimer ABG pH POC ABG pCO2 POC ABG pO2 ABG pO2 ABG HCO3 ABG O2 Saturation ABG Base Excess ABG Hemoglobin ABG Oxyhemoglobin ABG Sodium ABG Potassium ABG Chloride ABG Glucose Oxyhemoglobin Carboxyhemoglobin Sodium Potassium 5.2 H Chloride 109.6 H Carbon Dioxide BUN 67 H Creatinine 2.8 H Glucose 195 H POC Glucose 176 H Hemoglobin A1c Lactic Acid Calcium 7.9 L Phosphorus Magnesium Ferritin Total Bilirubin AST ALT Lactate Dehydrogenase C-Reactive Protein Albumin Triglycerides 160 H Arterial Blood Glucose Arterial Blood Ionized Calcium Urine Creatinine Coronavirus (PCR) Crossmatch 01/27/21 01/27/21 01/27/21 11:27 18:08 23:30 WBC RBC Hgb Hct MCV MCH MCHC RDW Plt Count Lymph % (Auto) Lymph # (Auto) Seg Neutrophils % Seg Neuts % (Manual) Lymphocytes % (Manual) Monocytes % (Manual) Nucleated RBC % Seg Neutrophils # Seg Neutrophils # Man Lymphocytes # (Manual) Monocytes # (Manual) Eosinophils # (Manual) INR D-Dimer ABG pH POC ABG pCO2 POC ABG pO2 ABG pO2 ABG HCO3 ABG O2 Saturation ABG Base Excess ABG Hemoglobin ABG Oxyhemoglobin ABG Sodium ABG Potassium ABG Chloride ABG Glucose Oxyhemoglobin Carboxyhemoglobin Sodium Potassium Chloride Carbon Dioxide BUN Creatinine Glucose POC Glucose 189 H 212 H 175 H Hemoglobin A1c Lactic Acid Calcium Phosphorus Magnesium Ferritin Total Bilirubin AST ALT Lactate Dehydrogenase C-Reactive Protein Albumin Triglycerides Arterial Blood Glucose Arterial Blood Ionized Calcium Urine Creatinine Coronavirus (PCR) Crossmatch 01/28/21 01/28/21 01/28/21 03:58 04:00 04:00 WBC RBC Hgb Hct MCV MCH MCHC RDW Plt Count Lymph % (Auto) Lymph # (Auto) Seg Neutrophils % Seg Neuts % (Manual) Lymphocytes % (Manual) Monocytes % (Manual) Nucleated RBC % Seg Neutrophils # Seg Neutrophils # Man Lymphocytes # (Manual) Monocytes # (Manual) Eosinophils # (Manual) INR D-Dimer > 69424 H ABG pH POC ABG pCO2 POC ABG pO2 52.9 L ABG pO2 ABG HCO3 ABG O2 Saturation ABG Base Excess ABG Hemoglobin ABG Oxyhemoglobin 84.1 L ABG Sodium 148.9 H ABG Potassium ABG Chloride 117.0 H ABG Glucose 194 H Oxyhemoglobin Carboxyhemoglobin Sodium Potassium Chloride Carbon Dioxide BUN Creatinine Glucose POC Glucose Hemoglobin A1c Lactic Acid Calcium Phosphorus Magnesium Ferritin Total Bilirubin AST ALT Lactate Dehydrogenase 679 H C-Reactive Protein 17.10 H Albumin Triglycerides Arterial Blood Glucose 194 H Arterial Blood Ionized Calcium Urine Creatinine Coronavirus (PCR) Crossmatch 01/28/21 01/28/21 01/28/21 04:00 05:00 06:00 WBC RBC 3.59 L Hgb 11.6 L Hct 34.8 L MCV 97 H MCH MCHC RDW Plt Count Lymph % (Auto) Lymph # (Auto) Seg Neutrophils % Seg Neuts % (Manual) 96.0 H Lymphocytes % (Manual) 3.0 L Monocytes % (Manual) Nucleated RBC % Seg Neutrophils # Seg Neutrophils # Man Lymphocytes # (Manual) 0.2 L Monocytes # (Manual) Eosinophils # (Manual) INR D-Dimer ABG pH POC ABG pCO2 POC ABG pO2 ABG pO2 ABG HCO3 ABG O2 Saturation ABG Base Excess ABG Hemoglobin ABG Oxyhemoglobin ABG Sodium ABG Potassium ABG Chloride ABG Glucose Oxyhemoglobin Carboxyhemoglobin Sodium Potassium Chloride Carbon Dioxide BUN Creatinine Glucose POC Glucose 159 H Hemoglobin A1c Lactic Acid Calcium Phosphorus Magnesium Ferritin 798.0 H Total Bilirubin AST ALT Lactate Dehydrogenase C-Reactive Protein Albumin Triglycerides Arterial Blood Glucose Arterial Blood Ionized Calcium Urine Creatinine Coronavirus (PCR) Crossmatch 01/28/21 01/28/21 01/28/21 06:00 06:00 08:12 WBC RBC Hgb Hct MCV MCH MCHC RDW Plt Count Lymph % (Auto) Lymph # (Auto) Seg Neutrophils % Seg Neuts % (Manual) Lymphocytes % (Manual) Monocytes % (Manual) Nucleated RBC % Seg Neutrophils # Seg Neutrophils # Man Lymphocytes # (Manual) Monocytes # (Manual) Eosinophils # (Manual) INR D-Dimer ABG pH POC ABG pCO2 POC ABG pO2 ABG pO2 ABG HCO3 ABG O2 Saturation ABG Base Excess ABG Hemoglobin ABG Oxyhemoglobin ABG Sodium ABG Potassium ABG Chloride ABG Glucose Oxyhemoglobin Carboxyhemoglobin Sodium Potassium Chloride 111.9 H Carbon Dioxide BUN 59 H Creatinine 2.2 H Glucose 189 H POC Glucose 181 H Hemoglobin A1c Lactic Acid Calcium 8.1 L Phosphorus Magnesium 3.20 H Ferritin Total Bilirubin AST ALT Lactate Dehydrogenase C-Reactive Protein Albumin Triglycerides Arterial Blood Glucose Arterial Blood Ionized Calcium Urine Creatinine Coronavirus (PCR) Crossmatch 01/28/21 01/28/21 01/28/21 12:03 16:43 23:51 WBC RBC Hgb Hct MCV MCH MCHC RDW Plt Count Lymph % (Auto) Lymph # (Auto) Seg Neutrophils % Seg Neuts % (Manual) Lymphocytes % (Manual) Monocytes % (Manual) Nucleated RBC % Seg Neutrophils # Seg Neutrophils # Man Lymphocytes # (Manual) Monocytes # (Manual) Eosinophils # (Manual) INR D-Dimer ABG pH POC ABG pCO2 POC ABG pO2 ABG pO2 ABG HCO3 ABG O2 Saturation ABG Base Excess ABG Hemoglobin ABG Oxyhemoglobin ABG Sodium ABG Potassium ABG Chloride ABG Glucose Oxyhemoglobin Carboxyhemoglobin Sodium Potassium Chloride Carbon Dioxide BUN Creatinine Glucose POC Glucose 164 H 198 H 196 H Hemoglobin A1c Lactic Acid Calcium Phosphorus Magnesium Ferritin Total Bilirubin AST ALT Lactate Dehydrogenase C-Reactive Protein Albumin Triglycerides Arterial Blood Glucose Arterial Blood Ionized Calcium Urine Creatinine Coronavirus (PCR) Crossmatch 01/29/21 01/29/21 01/29/21 05:00 05:23 06:00 WBC RBC Hgb Hct MCV MCH MCHC RDW Plt Count Lymph % (Auto) Lymph # (Auto) Seg Neutrophils % Seg Neuts % (Manual) Lymphocytes % (Manual) Monocytes % (Manual) Nucleated RBC % Seg Neutrophils # Seg Neutrophils # Man Lymphocytes # (Manual) Monocytes # (Manual) Eosinophils # (Manual) INR D-Dimer ABG pH 7.119 L POC ABG pCO2 87.1 H POC ABG pO2 ABG pO2 ABG HCO3 ABG O2 Saturation ABG Base Excess ABG Hemoglobin ABG Oxyhemoglobin ABG Sodium 152.5 H ABG Potassium 5.7 H ABG Chloride 120.0 H ABG Glucose 217 H Oxyhemoglobin Carboxyhemoglobin Sodium 151 H Potassium 5.9 H D Chloride 117.8 H Carbon Dioxide BUN 54 H Creatinine 2.2 H Glucose 208 H POC Glucose 180 H Hemoglobin A1c Lactic Acid Calcium 7.9 L Phosphorus Magnesium Ferritin Total Bilirubin AST ALT Lactate Dehydrogenase C-Reactive Protein Albumin Triglycerides Arterial Blood Glucose 217 H Arterial Blood Ionized Calcium Urine Creatinine Coronavirus (PCR) Crossmatch 01/29/21 01/29/21 01/29/21 12:29 17:28 18:05 WBC RBC Hgb Hct MCV MCH MCHC RDW Plt Count Lymph % (Auto) Lymph # (Auto) Seg Neutrophils % Seg Neuts % (Manual) Lymphocytes % (Manual) Monocytes % (Manual) Nucleated RBC % Seg Neutrophils # Seg Neutrophils # Man Lymphocytes # (Manual) Monocytes # (Manual) Eosinophils # (Manual) INR D-Dimer ABG pH POC ABG pCO2 POC ABG pO2 ABG pO2 ABG HCO3 ABG O2 Saturation ABG Base Excess ABG Hemoglobin ABG Oxyhemoglobin ABG Sodium ABG Potassium ABG Chloride ABG Glucose Oxyhemoglobin Carboxyhemoglobin Sodium 151 H Potassium 5.5 H Chloride 118.2 H Carbon Dioxide BUN 52 H Creatinine 2.2 H Glucose 224 H POC Glucose 181 H 203 H Hemoglobin A1c Lactic Acid Calcium 8.0 L Phosphorus Magnesium Ferritin Total Bilirubin AST ALT Lactate Dehydrogenase C-Reactive Protein Albumin Triglycerides Arterial Blood Glucose Arterial Blood Ionized Calcium Urine Creatinine Coronavirus (PCR) Crossmatch 01/29/21 01/29/21 01/29/21 18:13 23:34 Unknown WBC RBC Hgb Hct MCV 101 H MCH MCHC RDW 15.7 H Plt Count Lymph % (Auto) Lymph # (Auto) Seg Neutrophils % Seg Neuts % (Manual) 95.0 H Lymphocytes % (Manual) 3.0 L Monocytes % (Manual) Nucleated RBC % Seg Neutrophils # Seg Neutrophils # Man 8.0 H Lymphocytes # (Manual) 0.3 L Monocytes # (Manual) Eosinophils # (Manual) INR D-Dimer ABG pH 7.223 L POC ABG pCO2 64.8 H POC ABG pO2 63.6 L ABG pO2 ABG HCO3 ABG O2 Saturation ABG Base Excess ABG Hemoglobin ABG Oxyhemoglobin 89.4 L ABG Sodium 152.9 H ABG Potassium 5.3 H ABG Chloride 121.0 H ABG Glucose 227 H Oxyhemoglobin Carboxyhemoglobin Sodium Potassium Chloride Carbon Dioxide BUN Creatinine Glucose POC Glucose 198 H Hemoglobin A1c Lactic Acid Calcium Phosphorus Magnesium Ferritin Total Bilirubin AST ALT Lactate Dehydrogenase C-Reactive Protein Albumin Triglycerides Arterial Blood Glucose 227 H Arterial Blood Ionized Calcium Urine Creatinine Coronavirus (PCR) Crossmatch 01/30/21 01/30/21 01/30/21 04:00 04:00 04:00 WBC RBC Hgb Hct MCV MCH MCHC RDW Plt Count Lymph % (Auto) Lymph # (Auto) Seg Neutrophils % Seg Neuts % (Manual) Lymphocytes % (Manual) Monocytes % (Manual) Nucleated RBC % Seg Neutrophils # Seg Neutrophils # Man Lymphocytes # (Manual) Monocytes # (Manual) Eosinophils # (Manual) INR D-Dimer > 21328 H ABG pH POC ABG pCO2 POC ABG pO2 ABG pO2 ABG HCO3 ABG O2 Saturation ABG Base Excess ABG Hemoglobin ABG Oxyhemoglobin ABG Sodium ABG Potassium ABG Chloride ABG Glucose Oxyhemoglobin Carboxyhemoglobin Sodium Potassium Chloride Carbon Dioxide BUN Creatinine Glucose 234 H POC Glucose Hemoglobin A1c Lactic Acid Calcium Phosphorus Magnesium Ferritin 763.9 H Total Bilirubin AST ALT Lactate Dehydrogenase 424 H C-Reactive Protein 23.90 H Albumin Triglycerides Arterial Blood Glucose Arterial Blood Ionized Calcium Urine Creatinine Coronavirus (PCR) Crossmatch 01/30/21 01/30/21 01/30/21 04:24 05:00 05:16 WBC RBC 3.57 L Hgb 11.3 L Hct 35.4 L MCV 99 H MCH MCHC RDW 15.6 H Plt Count Lymph % (Auto) Lymph # (Auto) Seg Neutrophils % Seg Neuts % (Manual) 97.0 H Lymphocytes % (Manual) 1.0 L Monocytes % (Manual) Nucleated RBC % Seg Neutrophils # Seg Neutrophils # Man 8.6 H Lymphocytes # (Manual) 0.1 L Monocytes # (Manual) Eosinophils # (Manual) INR D-Dimer ABG pH 7.235 L POC ABG pCO2 69.7 H POC ABG pO2 61.0 L ABG pO2 ABG HCO3 ABG O2 Saturation ABG Base Excess ABG Hemoglobin ABG Oxyhemoglobin 89 L ABG Sodium 154.2 H ABG Potassium 5.4 H ABG Chloride 121.0 H ABG Glucose 247 H Oxyhemoglobin Carboxyhemoglobin Sodium Potassium Chloride Carbon Dioxide BUN Creatinine Glucose POC Glucose 238 H Hemoglobin A1c Lactic Acid Calcium Phosphorus Magnesium Ferritin Total Bilirubin AST ALT Lactate Dehydrogenase C-Reactive Protein Albumin Triglycerides Arterial Blood Glucose 247 H Arterial Blood Ionized Calcium Urine Creatinine Coronavirus (PCR) Crossmatch 01/30/21 01/30/21 01/30/21 06:00 11:28 12:00 WBC RBC Hgb Hct MCV MCH MCHC RDW Plt Count Lymph % (Auto) Lymph # (Auto) Seg Neutrophils % Seg Neuts % (Manual) Lymphocytes % (Manual) Monocytes % (Manual) Nucleated RBC % Seg Neutrophils # Seg Neutrophils # Man Lymphocytes # (Manual) Monocytes # (Manual) Eosinophils # (Manual) INR D-Dimer ABG pH POC ABG pCO2 POC ABG pO2 ABG pO2 ABG HCO3 ABG O2 Saturation ABG Base Excess ABG Hemoglobin ABG Oxyhemoglobin ABG Sodium ABG Potassium ABG Chloride ABG Glucose Oxyhemoglobin Carboxyhemoglobin Sodium 152 H Potassium 5.3 H Chloride 120.5 H Carbon Dioxide BUN 50 H Creatinine 2.3 H Glucose 239 H POC Glucose 153 H Hemoglobin A1c Lactic Acid Calcium 8.2 L Phosphorus Magnesium 2.60 H Ferritin Total Bilirubin AST ALT Lactate Dehydrogenase C-Reactive Protein Albumin Triglycerides 293 H Arterial Blood Glucose Arterial Blood Ionized Calcium Urine Creatinine 53.0 H Coronavirus (PCR) Crossmatch 01/30/21 01/30/21 01/31/21 18:49 23:06 04:00 WBC RBC Hgb Hct MCV MCH MCHC RDW Plt Count Lymph % (Auto) Lymph # (Auto) Seg Neutrophils % Seg Neuts % (Manual) Lymphocytes % (Manual) Monocytes % (Manual) Nucleated RBC % Seg Neutrophils # Seg Neutrophils # Man Lymphocytes # (Manual) Monocytes # (Manual) Eosinophils # (Manual) INR D-Dimer ABG pH POC ABG pCO2 POC ABG pO2 ABG pO2 ABG HCO3 ABG O2 Saturation ABG Base Excess ABG Hemoglobin ABG Oxyhemoglobin ABG Sodium ABG Potassium ABG Chloride ABG Glucose Oxyhemoglobin Carboxyhemoglobin Sodium 156 H Potassium 5.9 H Chloride 122.6 H Carbon Dioxide BUN 61 H Creatinine 3.2 H Glucose 205 H POC Glucose 220 H 192 H Hemoglobin A1c Lactic Acid Calcium 8.0 L Phosphorus Magnesium Ferritin Total Bilirubin AST ALT Lactate Dehydrogenase C-Reactive Protein Albumin Triglycerides Arterial Blood Glucose Arterial Blood Ionized Calcium Urine Creatinine Coronavirus (PCR) Crossmatch 01/31/21 01/31/21 01/31/21 04:40 05:17 11:33 WBC RBC Hgb Hct MCV MCH MCHC RDW Plt Count Lymph % (Auto) Lymph # (Auto) Seg Neutrophils % Seg Neuts % (Manual) Lymphocytes % (Manual) Monocytes % (Manual) Nucleated RBC % Seg Neutrophils # Seg Neutrophils # Man Lymphocytes # (Manual) Monocytes # (Manual) Eosinophils # (Manual) INR D-Dimer ABG pH 7.161 L* POC ABG pCO2 POC ABG pO2 ABG pO2 142.2 H ABG HCO3 28.3 H ABG O2 Saturation ABG Base Excess -3.2 L ABG Hemoglobin ABG Oxyhemoglobin ABG Sodium ABG Potassium ABG Chloride ABG Glucose Oxyhemoglobin Carboxyhemoglobin Sodium Potassium Chloride Carbon Dioxide BUN Creatinine Glucose POC Glucose 200 H 167 H Hemoglobin A1c Lactic Acid Calcium Phosphorus Magnesium Ferritin Total Bilirubin AST ALT Lactate Dehydrogenase C-Reactive Protein Albumin Triglycerides Arterial Blood Glucose Arterial Blood Ionized Calcium Urine Creatinine Coronavirus (PCR) Crossmatch 01/31/21 01/31/21 01/31/21 14:00 17:10 23:24 WBC RBC Hgb Hct MCV MCH MCHC RDW Plt Count Lymph % (Auto) Lymph # (Auto) Seg Neutrophils % Seg Neuts % (Manual) Lymphocytes % (Manual) Monocytes % (Manual) Nucleated RBC % Seg Neutrophils # Seg Neutrophils # Man Lymphocytes # (Manual) Monocytes # (Manual) Eosinophils # (Manual) INR D-Dimer ABG pH 7.205 L POC ABG pCO2 POC ABG pO2 ABG pO2 90.9 H ABG HCO3 26.5 H ABG O2 Saturation ABG Base Excess -2.7 L ABG Hemoglobin 12.3 L ABG Oxyhemoglobin ABG Sodium ABG Potassium ABG Chloride ABG Glucose Oxyhemoglobin 93.9 L Carboxyhemoglobin Sodium Potassium Chloride Carbon Dioxide BUN Creatinine Glucose POC Glucose 190 H 203 H Hemoglobin A1c Lactic Acid Calcium Phosphorus Magnesium Ferritin Total Bilirubin AST ALT Lactate Dehydrogenase C-Reactive Protein Albumin Triglycerides Arterial Blood Glucose Arterial Blood Ionized Calcium Urine Creatinine Coronavirus (PCR) Crossmatch 02/01/21 02/01/21 02/01/21 05:15 06:22 10:20 WBC RBC Hgb Hct MCV MCH MCHC RDW Plt Count Lymph % (Auto) Lymph # (Auto) Seg Neutrophils % Seg Neuts % (Manual) Lymphocytes % (Manual) Monocytes % (Manual) Nucleated RBC % Seg Neutrophils # Seg Neutrophils # Man Lymphocytes # (Manual) Monocytes # (Manual) Eosinophils # (Manual) INR D-Dimer ABG pH 6.920 L* 7.116 L* POC ABG pCO2 POC ABG pO2 ABG pO2 102.9 H 113.1 H ABG HCO3 28.2 H ABG O2 Saturation 92.9 L ABG Base Excess -6.9 L -5.8 L ABG Hemoglobin 11.6 L 9.5 L ABG Oxyhemoglobin ABG Sodium ABG Potassium ABG Chloride ABG Glucose Oxyhemoglobin 90.5 L 94.6 L Carboxyhemoglobin Sodium Potassium Chloride Carbon Dioxide BUN Creatinine Glucose POC Glucose 221 H Hemoglobin A1c Lactic Acid Calcium Phosphorus Magnesium Ferritin Total Bilirubin AST ALT Lactate Dehydrogenase C-Reactive Protein Albumin Triglycerides Arterial Blood Glucose Arterial Blood Ionized Calcium Urine Creatinine Coronavirus (PCR) Crossmatch 02/01/21 02/01/21 02/01/21 11:12 12:35 16:00 WBC RBC Hgb Hct MCV MCH MCHC RDW Plt Count Lymph % (Auto) Lymph # (Auto) Seg Neutrophils % Seg Neuts % (Manual) Lymphocytes % (Manual) Monocytes % (Manual) Nucleated RBC % Seg Neutrophils # Seg Neutrophils # Man Lymphocytes # (Manual) Monocytes # (Manual) Eosinophils # (Manual) INR D-Dimer ABG pH 7.155 L* POC ABG pCO2 POC ABG pO2 ABG pO2 94.6 H ABG HCO3 ABG O2 Saturation ABG Base Excess -6.5 L ABG Hemoglobin 13.1 L ABG Oxyhemoglobin ABG Sodium ABG Potassium ABG Chloride ABG Glucose Oxyhemoglobin 93.7 L Carboxyhemoglobin Sodium 155 H Potassium 5.1 H Chloride 120.5 H Carbon Dioxide BUN 90 H Creatinine 6.1 H D Glucose 238 H POC Glucose 207 H Hemoglobin A1c Lactic Acid Calcium 7.4 L Phosphorus Magnesium Ferritin Total Bilirubin AST ALT Lactate Dehydrogenase C-Reactive Protein Albumin Triglycerides Arterial Blood Glucose Arterial Blood Ionized Calcium Urine Creatinine Coronavirus (PCR) Crossmatch 02/01/21 02/01/21 02/02/21 17:10 23:47 04:04 WBC RBC 3.02 L Hgb 9.8 L Hct 30.7 L MCV 102 H MCH MCHC RDW 15.6 H Plt Count Lymph % (Auto) 4.2 L Lymph # (Auto) 0.3 L Seg Neutrophils % Seg Neuts % (Manual) Lymphocytes % (Manual) Monocytes % (Manual) Nucleated RBC % Seg Neutrophils # Seg Neutrophils # Man Lymphocytes # (Manual) Monocytes # (Manual) Eosinophils # (Manual) INR D-Dimer ABG pH POC ABG pCO2 POC ABG pO2 ABG pO2 ABG HCO3 ABG O2 Saturation ABG Base Excess ABG Hemoglobin ABG Oxyhemoglobin ABG Sodium ABG Potassium ABG Chloride ABG Glucose Oxyhemoglobin Carboxyhemoglobin Sodium Potassium Chloride Carbon Dioxide BUN Creatinine Glucose POC Glucose 238 H 235 H Hemoglobin A1c Lactic Acid Calcium Phosphorus Magnesium Ferritin Total Bilirubin AST ALT Lactate Dehydrogenase C-Reactive Protein Albumin Triglycerides Arterial Blood Glucose Arterial Blood Ionized Calcium Urine Creatinine Coronavirus (PCR) Crossmatch 02/02/21 02/02/21 02/02/21 05:18 05:35 11:28 WBC RBC Hgb Hct MCV MCH MCHC RDW Plt Count Lymph % (Auto) Lymph # (Auto) Seg Neutrophils % Seg Neuts % (Manual) Lymphocytes % (Manual) Monocytes % (Manual) Nucleated RBC % Seg Neutrophils # Seg Neutrophils # Man Lymphocytes # (Manual) Monocytes # (Manual) Eosinophils # (Manual) INR D-Dimer ABG pH 7.195 L* POC ABG pCO2 POC ABG pO2 ABG pO2 72.5 L ABG HCO3 ABG O2 Saturation 91.2 L ABG Base Excess -5.3 L ABG Hemoglobin 6.0 L ABG Oxyhemoglobin ABG Sodium ABG Potassium ABG Chloride ABG Glucose Oxyhemoglobin 89.1 L Carboxyhemoglobin Sodium Potassium Chloride 110.4 H Carbon Dioxide BUN 92 H Creatinine Glucose POC Glucose 239 H Hemoglobin A1c Lactic Acid Calcium Phosphorus Magnesium Ferritin Total Bilirubin AST ALT Lactate Dehydrogenase C-Reactive Protein Albumin Triglycerides Arterial Blood Glucose Arterial Blood Ionized Calcium Urine Creatinine Coronavirus (PCR) Crossmatch 02/02/21 02/02/21 02/02/21 11:53 16:00 18:04 WBC RBC Hgb Hct MCV MCH MCHC RDW Plt Count Lymph % (Auto) Lymph # (Auto) Seg Neutrophils % Seg Neuts % (Manual) Lymphocytes % (Manual) Monocytes % (Manual) Nucleated RBC % Seg Neutrophils # Seg Neutrophils # Man Lymphocytes # (Manual) Monocytes # (Manual) Eosinophils # (Manual) INR D-Dimer ABG pH POC ABG pCO2 POC ABG pO2 ABG pO2 ABG HCO3 ABG O2 Saturation ABG Base Excess ABG Hemoglobin ABG Oxyhemoglobin ABG Sodium ABG Potassium ABG Chloride ABG Glucose Oxyhemoglobin Carboxyhemoglobin Sodium Potassium Chloride Carbon Dioxide BUN Creatinine Glucose POC Glucose 248 H 199 H Hemoglobin A1c 6.3 H Lactic Acid Calcium Phosphorus Magnesium Ferritin Total Bilirubin AST ALT Lactate Dehydrogenase C-Reactive Protein Albumin Triglycerides Arterial Blood Glucose Arterial Blood Ionized Calcium Urine Creatinine Coronavirus (PCR) Crossmatch 02/02/21 02/03/21 02/03/21 23:31 03:12 04:10 WBC RBC 3.06 L Hgb 9.7 L Hct 30.4 L MCV 99 H MCH MCHC RDW 15.3 H Plt Count Lymph % (Auto) 6.1 L Lymph # (Auto) 0.5 L Seg Neutrophils % 86.1 H Seg Neuts % (Manual) Lymphocytes % (Manual) Monocytes % (Manual) Nucleated RBC % Seg Neutrophils # Seg Neutrophils # Man Lymphocytes # (Manual) Monocytes # (Manual) Eosinophils # (Manual) INR D-Dimer ABG pH 7.199 L POC ABG pCO2 48.3 H POC ABG pO2 68.3 L ABG pO2 ABG HCO3 ABG O2 Saturation ABG Base Excess ABG Hemoglobin 10.2 L ABG Oxyhemoglobin 89.2 L ABG Sodium 155.0 H ABG Potassium 4.6 H ABG Chloride 121.0 H ABG Glucose 166 H Oxyhemoglobin Carboxyhemoglobin 0.3 L Sodium Potassium Chloride Carbon Dioxide BUN Creatinine Glucose POC Glucose 200 H Hemoglobin A1c Lactic Acid Calcium Phosphorus Magnesium Ferritin Total Bilirubin AST ALT Lactate Dehydrogenase C-Reactive Protein Albumin Triglycerides Arterial Blood Glucose 166 H Arterial Blood Ionized Calcium 4.1 L Urine Creatinine Coronavirus (PCR) Crossmatch 02/03/21 02/03/21 02/03/21 04:10 05:34 11:51 WBC RBC Hgb Hct MCV MCH MCHC RDW Plt Count Lymph % (Auto) Lymph # (Auto) Seg Neutrophils % Seg Neuts % (Manual) Lymphocytes % (Manual) Monocytes % (Manual) Nucleated RBC % Seg Neutrophils # Seg Neutrophils # Man Lymphocytes # (Manual) Monocytes # (Manual) Eosinophils # (Manual) INR D-Dimer ABG pH POC ABG pCO2 POC ABG pO2 ABG pO2 ABG HCO3 ABG O2 Saturation ABG Base Excess ABG Hemoglobin ABG Oxyhemoglobin ABG Sodium ABG Potassium ABG Chloride ABG Glucose Oxyhemoglobin Carboxyhemoglobin Sodium 154 H D Potassium Chloride 116.7 H Carbon Dioxide 20 L BUN 130 H Creatinine 9.2 H D Glucose 160 H POC Glucose 130 H 154 H Hemoglobin A1c Lactic Acid Calcium 6.7 L Phosphorus 8.60 H Magnesium Ferritin Total Bilirubin AST ALT Lactate Dehydrogenase C-Reactive Protein Albumin Triglycerides Arterial Blood Glucose Arterial Blood Ionized Calcium Urine Creatinine Coronavirus (PCR) Crossmatch 02/03/21 02/03/21 02/04/21 16:49 23:22 03:48 WBC RBC Hgb Hct MCV MCH MCHC RDW Plt Count Lymph % (Auto) Lymph # (Auto) Seg Neutrophils % Seg Neuts % (Manual) Lymphocytes % (Manual) Monocytes % (Manual) Nucleated RBC % Seg Neutrophils # Seg Neutrophils # Man Lymphocytes # (Manual) Monocytes # (Manual) Eosinophils # (Manual) INR D-Dimer ABG pH 7.201 L POC ABG pCO2 54.5 H POC ABG pO2 74.0 L ABG pO2 ABG HCO3 ABG O2 Saturation ABG Base Excess ABG Hemoglobin 9.7 L ABG Oxyhemoglobin 91.1 L ABG Sodium 146.2 H ABG Potassium ABG Chloride 114.0 H ABG Glucose 155 H Oxyhemoglobin Carboxyhemoglobin Sodium Potassium Chloride Carbon Dioxide BUN Creatinine Glucose POC Glucose 164 H 152 H Hemoglobin A1c Lactic Acid Calcium Phosphorus Magnesium Ferritin Total Bilirubin AST ALT Lactate Dehydrogenase C-Reactive Protein Albumin Triglycerides Arterial Blood Glucose 155 H Arterial Blood Ionized Calcium 3.9 L Urine Creatinine Coronavirus (PCR) Crossmatch 04/07/21 04/07/21 04/07/21 04:45 04:45 04:45 WBC RBC 2.75 L Hgb 9.1 L Hct 26.9 L MCV 98 H MCH 33 H MCHC RDW Plt Count Lymph % (Auto) 6.8 L Lymph # (Auto) 0.5 L Seg Neutrophils % 87.2 H Seg Neuts % (Manual) Lymphocytes % (Manual) Monocytes % (Manual) Nucleated RBC % Seg Neutrophils # Seg Neutrophils # Man Lymphocytes # (Manual) Monocytes # (Manual) Eosinophils # (Manual) INR D-Dimer ABG pH POC ABG pCO2 POC ABG pO2 ABG pO2 ABG HCO3 ABG O2 Saturation ABG Base Excess ABG Hemoglobin ABG Oxyhemoglobin ABG Sodium ABG Potassium ABG Chloride ABG Glucose Oxyhemoglobin Carboxyhemoglobin Sodium 149 H Potassium Chloride 111.5 H Carbon Dioxide BUN 99 H Creatinine 8.5 H Glucose 139 H POC Glucose Hemoglobin A1c Lactic Acid Calcium 6.8 L Phosphorus 8.40 H Magnesium Ferritin Total Bilirubin AST ALT Lactate Dehydrogenase C-Reactive Protein Albumin Triglycerides Arterial Blood Glucose Arterial Blood Ionized Calcium Urine Creatinine Coronavirus (PCR) Crossmatch 02/04/21 02/04/21 02/04/21 06:05 11:44 18:00 WBC RBC Hgb Hct MCV MCH MCHC RDW Plt Count Lymph % (Auto) Lymph # (Auto) Seg Neutrophils % Seg Neuts % (Manual) Lymphocytes % (Manual) Monocytes % (Manual) Nucleated RBC % Seg Neutrophils # Seg Neutrophils # Man Lymphocytes # (Manual) Monocytes # (Manual) Eosinophils # (Manual) INR D-Dimer ABG pH POC ABG pCO2 POC ABG pO2 ABG pO2 ABG HCO3 ABG O2 Saturation ABG Base Excess ABG Hemoglobin ABG Oxyhemoglobin ABG Sodium ABG Potassium ABG Chloride ABG Glucose Oxyhemoglobin Carboxyhemoglobin Sodium Potassium Chloride Carbon Dioxide BUN Creatinine Glucose POC Glucose 138 H 129 H 163 H Hemoglobin A1c Lactic Acid Calcium Phosphorus Magnesium Ferritin Total Bilirubin AST ALT Lactate Dehydrogenase C-Reactive Protein Albumin Triglycerides Arterial Blood Glucose Arterial Blood Ionized Calcium Urine Creatinine Coronavirus (PCR) Crossmatch 02/04/21 02/05/21 02/05/21 23:48 01:50 01:50 WBC RBC 2.43 L Hgb 8.3 L Hct 23.6 L MCV 97 H MCH 34 H MCHC 35 H RDW Plt Count 137 L Lymph % (Auto) 8.4 L Lymph # (Auto) 0.6 L Seg Neutrophils % 86.1 H Seg Neuts % (Manual) Lymphocytes % (Manual) Monocytes % (Manual) Nucleated RBC % Seg Neutrophils # Seg Neutrophils # Man Lymphocytes # (Manual) Monocytes # (Manual) Eosinophils # (Manual) INR D-Dimer ABG pH POC ABG pCO2 POC ABG pO2 ABG pO2 ABG HCO3 ABG O2 Saturation ABG Base Excess ABG Hemoglobin ABG Oxyhemoglobin ABG Sodium ABG Potassium ABG Chloride ABG Glucose Oxyhemoglobin Carboxyhemoglobin Sodium Potassium Chloride Carbon Dioxide BUN Creatinine Glucose POC Glucose 157 H Hemoglobin A1c Lactic Acid Calcium Phosphorus 5.60 H D Magnesium Ferritin Total Bilirubin AST ALT Lactate Dehydrogenase C-Reactive Protein Albumin Triglycerides Arterial Blood Glucose Arterial Blood Ionized Calcium Urine Creatinine Coronavirus (PCR) Crossmatch 02/05/21 02/05/21 02/05/21 03:44 05:27 09:15 WBC RBC Hgb Hct MCV MCH MCHC RDW Plt Count Lymph % (Auto) Lymph # (Auto) Seg Neutrophils % Seg Neuts % (Manual) Lymphocytes % (Manual) Monocytes % (Manual) Nucleated RBC % Seg Neutrophils # Seg Neutrophils # Man Lymphocytes # (Manual) Monocytes # (Manual) Eosinophils # (Manual) INR D-Dimer ABG pH 7.202 L POC ABG pCO2 63.7 H POC ABG pO2 69.0 L ABG pO2 ABG HCO3 ABG O2 Saturation ABG Base Excess ABG Hemoglobin 9.4 L ABG Oxyhemoglobin ABG Sodium ABG Potassium ABG Chloride 108.0 H ABG Glucose 186 H Oxyhemoglobin Carboxyhemoglobin Sodium Potassium Chloride Carbon Dioxide BUN 78 H Creatinine 8.0 H Glucose 163 H POC Glucose 157 H Hemoglobin A1c Lactic Acid Calcium 6.3 L Phosphorus Magnesium Ferritin Total Bilirubin AST ALT Lactate Dehydrogenase C-Reactive Protein Albumin Triglycerides Arterial Blood Glucose 186 H Arterial Blood Ionized Calcium 3.9 L Urine Creatinine Coronavirus (PCR) Crossmatch 02/05/21 02/05/21 02/05/21 11:47 17:39 23:40 WBC RBC Hgb Hct MCV MCH MCHC RDW Plt Count Lymph % (Auto) Lymph # (Auto) Seg Neutrophils % Seg Neuts % (Manual) Lymphocytes % (Manual) Monocytes % (Manual) Nucleated RBC % Seg Neutrophils # Seg Neutrophils # Man Lymphocytes # (Manual) Monocytes # (Manual) Eosinophils # (Manual) INR D-Dimer ABG pH 7.273 L POC ABG pCO2 62.1 H POC ABG pO2 72.0 L ABG pO2 ABG HCO3 ABG O2 Saturation ABG Base Excess ABG Hemoglobin 9.1 L ABG Oxyhemoglobin 91.3 L ABG Sodium ABG Potassium 3.1 L ABG Chloride ABG Glucose 125 H Oxyhemoglobin Carboxyhemoglobin Sodium Potassium Chloride Carbon Dioxide BUN Creatinine Glucose POC Glucose 126 H 126 H Hemoglobin A1c Lactic Acid Calcium Phosphorus Magnesium Ferritin Total Bilirubin AST ALT Lactate Dehydrogenase C-Reactive Protein Albumin Triglycerides Arterial Blood Glucose 125 H Arterial Blood Ionized Calcium 4.0 L Urine Creatinine Coronavirus (PCR) Crossmatch 02/06/21 02/06/21 02/06/21 04:30 04:57 09:45 WBC RBC Hgb Hct MCV MCH MCHC RDW Plt Count Lymph % (Auto) Lymph # (Auto) Seg Neutrophils % Seg Neuts % (Manual) Lymphocytes % (Manual) Monocytes % (Manual) Nucleated RBC % Seg Neutrophils # Seg Neutrophils # Man Lymphocytes # (Manual) Monocytes # (Manual) Eosinophils # (Manual) INR D-Dimer ABG pH 7.159 L 7.138 L* POC ABG pCO2 76.3 H POC ABG pO2 66.9 L ABG pO2 ABG HCO3 ABG O2 Saturation 93.4 L ABG Base Excess -6.0 L ABG Hemoglobin 11.2 L 11.7 L ABG Oxyhemoglobin 88.2 L ABG Sodium ABG Potassium ABG Chloride ABG Glucose 134 H Oxyhemoglobin 91.2 L Carboxyhemoglobin Sodium Potassium Chloride Carbon Dioxide BUN Creatinine Glucose POC Glucose 124 H Hemoglobin A1c Lactic Acid Calcium Phosphorus Magnesium Ferritin Total Bilirubin AST ALT Lactate Dehydrogenase C-Reactive Protein Albumin Triglycerides Arterial Blood Glucose 134 H Arterial Blood Ionized Calcium 3.9 L Urine Creatinine Coronavirus (PCR) Crossmatch 02/06/21 02/06/21 02/06/21 11:11 17:00 17:00 WBC RBC Hgb Hct MCV MCH MCHC RDW Plt Count Lymph % (Auto) Lymph # (Auto) Seg Neutrophils % Seg Neuts % (Manual) Lymphocytes % (Manual) Monocytes % (Manual) Nucleated RBC % Seg Neutrophils # Seg Neutrophils # Man Lymphocytes # (Manual) Monocytes # (Manual) Eosinophils # (Manual) INR D-Dimer ABG pH 7.158 L* POC ABG pCO2 POC ABG pO2 ABG pO2 109.8 H ABG HCO3 28.7 H ABG O2 Saturation ABG Base Excess -2.5 L ABG Hemoglobin ABG Oxyhemoglobin ABG Sodium ABG Potassium ABG Chloride ABG Glucose Oxyhemoglobin 94.5 L Carboxyhemoglobin Sodium Potassium Chloride Carbon Dioxide BUN Creatinine Glucose POC Glucose 120 H Hemoglobin A1c Lactic Acid Calcium Phosphorus Magnesium Ferritin Total Bilirubin AST ALT Lactate Dehydrogenase C-Reactive Protein Albumin Triglycerides 503 H Arterial Blood Glucose Arterial Blood Ionized Calcium Urine Creatinine Coronavirus (PCR) Crossmatch 02/06/21 02/06/21 02/06/21 17:28 20:16 Unknown WBC 13.5 H RBC 2.98 L Hgb 9.3 L Hct 28.6 L MCV 96 H MCH MCHC RDW Plt Count Lymph % (Auto) Lymph # (Auto) Seg Neutrophils % Seg Neuts % (Manual) 87.0 H Lymphocytes % (Manual) 7.0 L Monocytes % (Manual) Nucleated RBC % Seg Neutrophils # Seg Neutrophils # Man 11.7 H Lymphocytes # (Manual) 0.9 L Monocytes # (Manual) Eosinophils # (Manual) 0.5 H INR D-Dimer ABG pH POC ABG pCO2 POC ABG pO2 ABG pO2 ABG HCO3 ABG O2 Saturation ABG Base Excess ABG Hemoglobin ABG Oxyhemoglobin ABG Sodium ABG Potassium ABG Chloride ABG Glucose Oxyhemoglobin Carboxyhemoglobin Sodium Potassium Chloride Carbon Dioxide BUN Creatinine Glucose POC Glucose 147 H 164 H Hemoglobin A1c Lactic Acid Calcium Phosphorus Magnesium Ferritin Total Bilirubin AST ALT Lactate Dehydrogenase C-Reactive Protein Albumin Triglycerides Arterial Blood Glucose Arterial Blood Ionized Calcium Urine Creatinine Coronavirus (PCR) Crossmatch 02/06/21 02/07/21 02/07/21 Unknown 01:21 04:00 WBC 12.0 H RBC 2.61 L Hgb 8.2 L Hct 24.5 L MCV MCH MCHC RDW Plt Count Lymph % (Auto) 8.9 L Lymph # (Auto) 1.1 L Seg Neutrophils % 86.3 H Seg Neuts % (Manual) Lymphocytes % (Manual) Monocytes % (Manual) Nucleated RBC % Seg Neutrophils # 10.3 H Seg Neutrophils # Man Lymphocytes # (Manual) Monocytes # (Manual) Eosinophils # (Manual) INR D-Dimer ABG pH POC ABG pCO2 POC ABG pO2 ABG pO2 ABG HCO3 ABG O2 Saturation ABG Base Excess ABG Hemoglobin ABG Oxyhemoglobin ABG Sodium ABG Potassium ABG Chloride ABG Glucose Oxyhemoglobin Carboxyhemoglobin Sodium Potassium 3.5 L Chloride Carbon Dioxide BUN 58 H Creatinine 6.6 H Glucose 107 H POC Glucose 173 H Hemoglobin A1c Lactic Acid Calcium 6.7 L Phosphorus 8.00 H D Magnesium Ferritin Total Bilirubin AST ALT Lactate Dehydrogenase C-Reactive Protein Albumin Triglycerides Arterial Blood Glucose Arterial Blood Ionized Calcium Urine Creatinine Coronavirus (PCR) Crossmatch 02/07/21 02/07/21 02/07/21 04:00 04:45 11:49 WBC RBC Hgb Hct MCV MCH MCHC RDW Plt Count Lymph % (Auto) Lymph # (Auto) Seg Neutrophils % Seg Neuts % (Manual) Lymphocytes % (Manual) Monocytes % (Manual) Nucleated RBC % Seg Neutrophils # Seg Neutrophils # Man Lymphocytes # (Manual) Monocytes # (Manual) Eosinophils # (Manual) INR D-Dimer ABG pH 7.287 L POC ABG pCO2 64.8 H POC ABG pO2 74.0 L ABG pO2 ABG HCO3 ABG O2 Saturation ABG Base Excess ABG Hemoglobin 9.1 L ABG Oxyhemoglobin 92.0 L ABG Sodium ABG Potassium 2.8 L ABG Chloride ABG Glucose 226 H Oxyhemoglobin Carboxyhemoglobin Sodium Potassium Chloride Carbon Dioxide BUN Creatinine Glucose POC Glucose 170 H Hemoglobin A1c Lactic Acid Calcium Phosphorus 5.50 H D Magnesium Ferritin Total Bilirubin AST ALT Lactate Dehydrogenase C-Reactive Protein Albumin Triglycerides Arterial Blood Glucose 226 H Arterial Blood Ionized Calcium 3.7 L Urine Creatinine Coronavirus (PCR) Crossmatch 02/07/21 02/07/21 02/07/21 13:48 17:45 23:02 WBC RBC Hgb Hct MCV MCH MCHC RDW Plt Count Lymph % (Auto) Lymph # (Auto) Seg Neutrophils % Seg Neuts % (Manual) Lymphocytes % (Manual) Monocytes % (Manual) Nucleated RBC % Seg Neutrophils # Seg Neutrophils # Man Lymphocytes # (Manual) Monocytes # (Manual) Eosinophils # (Manual) INR D-Dimer ABG pH POC ABG pCO2 POC ABG pO2 ABG pO2 ABG HCO3 ABG O2 Saturation ABG Base Excess ABG Hemoglobin ABG Oxyhemoglobin ABG Sodium ABG Potassium ABG Chloride ABG Glucose Oxyhemoglobin Carboxyhemoglobin Sodium 136 L Potassium 2.6 L* D Chloride 95.1 L Carbon Dioxide 33 H D BUN 30 H Creatinine 3.6 H Glucose 184 H POC Glucose 172 H 172 H Hemoglobin A1c Lactic Acid Calcium 6.9 L Phosphorus Magnesium Ferritin Total Bilirubin AST ALT Lactate Dehydrogenase C-Reactive Protein Albumin Triglycerides Arterial Blood Glucose Arterial Blood Ionized Calcium Urine Creatinine Coronavirus (PCR) Crossmatch 02/08/21 02/08/21 02/08/21 05:22 06:00 06:00 WBC RBC 2.21 L Hgb 7.2 L Hct 21.0 L MCV 95 H MCH MCHC RDW Plt Count Lymph % (Auto) Lymph # (Auto) Seg Neutrophils % Seg Neuts % (Manual) 87.0 H Lymphocytes % (Manual) 4.0 L Monocytes % (Manual) Nucleated RBC % Seg Neutrophils # Seg Neutrophils # Man 8.5 H Lymphocytes # (Manual) 0.4 L Monocytes # (Manual) Eosinophils # (Manual) INR D-Dimer ABG pH POC ABG pCO2 POC ABG pO2 ABG pO2 ABG HCO3 ABG O2 Saturation ABG Base Excess ABG Hemoglobin ABG Oxyhemoglobin ABG Sodium ABG Potassium ABG Chloride ABG Glucose Oxyhemoglobin Carboxyhemoglobin Sodium 136 L Potassium 2.4 L* Chloride 93.1 L Carbon Dioxide 36 H BUN 43 H Creatinine 5.4 H Glucose 167 H POC Glucose 162 H Hemoglobin A1c Lactic Acid Calcium 6.3 L Phosphorus Magnesium Ferritin Total Bilirubin AST ALT Lactate Dehydrogenase C-Reactive Protein Albumin Triglycerides Arterial Blood Glucose Arterial Blood Ionized Calcium Urine Creatinine Coronavirus (PCR) Crossmatch 02/08/21 02/08/21 02/08/21 11:44 17:53 18:56 WBC RBC Hgb Hct MCV MCH MCHC RDW Plt Count Lymph % (Auto) Lymph # (Auto) Seg Neutrophils % Seg Neuts % (Manual) Lymphocytes % (Manual) Monocytes % (Manual) Nucleated RBC % Seg Neutrophils # Seg Neutrophils # Man Lymphocytes # (Manual) Monocytes # (Manual) Eosinophils # (Manual) INR D-Dimer ABG pH POC ABG pCO2 POC ABG pO2 ABG pO2 ABG HCO3 ABG O2 Saturation ABG Base Excess ABG Hemoglobin ABG Oxyhemoglobin ABG Sodium ABG Potassium ABG Chloride ABG Glucose Oxyhemoglobin Carboxyhemoglobin Sodium Potassium 2.9 L* D Chloride Carbon Dioxide BUN Creatinine Glucose POC Glucose 164 H 154 H Hemoglobin A1c Lactic Acid Calcium Phosphorus Magnesium Ferritin Total Bilirubin AST ALT Lactate Dehydrogenase C-Reactive Protein Albumin Triglycerides Arterial Blood Glucose Arterial Blood Ionized Calcium Urine Creatinine Coronavirus (PCR) Crossmatch 02/08/21 02/08/2102/09/21 23:24 23:58 03:21 WBC RBC Hgb Hct MCV MCH MCHC RDW Plt Count Lymph % (Auto) Lymph # (Auto) Seg Neutrophils % Seg Neuts % (Manual) Lymphocytes % (Manual) Monocytes % (Manual) Nucleated RBC % Seg Neutrophils # Seg Neutrophils # Man Lymphocytes # (Manual) Monocytes # (Manual) Eosinophils # (Manual) INR D-Dimer ABG pH 7.319 L POC ABG pCO2 63.3 H 68.3 H POC ABG pO2 71.2 L 76.5 L ABG pO2 ABG HCO3 ABG O2 Saturation ABG Base Excess ABG Hemoglobin 8.2 L 7.0 L ABG Oxyhemoglobin 91.8 L 92.2 L ABG Sodium 134.6 L 133.0 L ABG Potassium 2.3 L 3.1 L ABG Chloride 96.0 L 95.0 L ABG Glucose 184 H 154 H Oxyhemoglobin Carboxyhemoglobin Sodium Potassium Chloride Carbon Dioxide BUN Creatinine Glucose POC Glucose 152 H Hemoglobin A1c Lactic Acid Calcium Phosphorus Magnesium Ferritin Total Bilirubin AST ALT Lactate Dehydrogenase C-Reactive Protein Albumin Triglycerides Arterial Blood Glucose 184 H 154 H Arterial Blood Ionized Calcium 3.6 L 3.5 L Urine Creatinine Coronavirus (PCR) Crossmatch 02/09/21 02/09/21 02/09/21 05:10 05:10 06:04 WBC RBC 2.14 L Hgb 7.0 L Hct 20.5 L MCV 96 H MCH 33 H MCHC RDW Plt Count Lymph % (Auto) Lymph # (Auto) Seg Neutrophils % Seg Neuts % (Manual) 82.0 H Lymphocytes % (Manual) 9.0 L Monocytes % (Manual) Nucleated RBC % 1.0 H Seg Neutrophils # Seg Neutrophils # Man 8.9 H Lymphocytes # (Manual) 1.0 L Monocytes # (Manual) Eosinophils # (Manual) INR D-Dimer ABG pH POC ABG pCO2 POC ABG pO2 ABG pO2 ABG HCO3 ABG O2 Saturation ABG Base Excess ABG Hemoglobin ABG Oxyhemoglobin ABG Sodium ABG Potassium ABG Chloride ABG Glucose Oxyhemoglobin Carboxyhemoglobin Sodium 135 L Potassium 3.2 L Chloride 91.0 L Carbon Dioxide 32 H BUN 54 H Creatinine 6.6 H Glucose 163 H POC Glucose 149 H Hemoglobin A1c Lactic Acid Calcium 6.2 L Phosphorus Magnesium Ferritin Total Bilirubin AST ALT Lactate Dehydrogenase C-Reactive Protein Albumin Triglycerides Arterial Blood Glucose Arterial Blood Ionized Calcium Urine Creatinine Coronavirus (PCR) Crossmatch 02/09/21 02/09/21 02/09/21 12:02 13:32 13:40 WBC RBC Hgb Hct MCV MCH MCHC RDW Plt Count Lymph % (Auto) Lymph # (Auto) Seg Neutrophils % Seg Neuts % (Manual) Lymphocytes % (Manual) Monocytes % (Manual) Nucleated RBC % Seg Neutrophils # Seg Neutrophils # Man Lymphocytes # (Manual) Monocytes # (Manual) Eosinophils # (Manual) INR D-Dimer ABG pH POC ABG pCO2 POC ABG pO2 ABG pO2 ABG HCO3 ABG O2 Saturation ABG Base Excess ABG Hemoglobin ABG Oxyhemoglobin ABG Sodium ABG Potassium ABG Chloride ABG Glucose Oxyhemoglobin Carboxyhemoglobin Sodium Potassium Chloride Carbon Dioxide BUN Creatinine Glucose POC Glucose 147 H Hemoglobin A1c Lactic Acid Calcium Phosphorus Magnesium Ferritin Total Bilirubin AST ALT Lactate Dehydrogenase C-Reactive Protein Albumin Triglycerides 250 H Arterial Blood Glucose Arterial Blood Ionized Calcium Urine Creatinine Coronavirus (PCR) Crossmatch See Detail 02/09/21 02/09/21 02/10/21 18:06 23:42 04:00 WBC RBC Hgb Hct MCV MCH MCHC RDW Plt Count Lymph % (Auto) Lymph # (Auto) Seg Neutrophils % Seg Neuts % (Manual) Lymphocytes % (Manual) Monocytes % (Manual) Nucleated RBC % Seg Neutrophils # Seg Neutrophils # Man Lymphocytes # (Manual) Monocytes # (Manual) Eosinophils # (Manual) INR D-Dimer ABG pH POC ABG pCO2 65.8 H POC ABG pO2 68.0 L ABG pO2 ABG HCO3 ABG O2 Saturation ABG Base Excess ABG Hemoglobin 8.3 L ABG Oxyhemoglobin ABG Sodium 132.4 L ABG Potassium 2.9 L ABG Chloride 92.0 L ABG Glucose 174 H Oxyhemoglobin Carboxyhemoglobin Sodium Potassium Chloride Carbon Dioxide BUN Creatinine Glucose POC Glucose 152 H 147 H Hemoglobin A1c Lactic Acid Calcium Phosphorus Magnesium Ferritin Total Bilirubin AST ALT Lactate Dehydrogenase C-Reactive Protein Albumin Triglycerides Arterial Blood Glucose 174 H Arterial Blood Ionized Calcium 3.4 L Urine Creatinine Coronavirus (PCR) Crossmatch 02/10/21 02/10/21 02/10/21 05:32 11:29 14:08 WBC 12.5 H RBC 2.14 L Hgb 6.6 L Hct 20.2 L MCV MCH MCHC RDW Plt Count Lymph % (Auto) Lymph # (Auto) Seg Neutrophils % Seg Neuts % (Manual) Lymphocytes % (Manual) Monocytes % (Manual) Nucleated RBC % Seg Neutrophils # Seg Neutrophils # Man Lymphocytes # (Manual) Monocytes # (Manual) Eosinophils # (Manual) INR D-Dimer ABG pH POC ABG pCO2 POC ABG pO2 ABG pO2 ABG HCO3 ABG O2 Saturation ABG Base Excess ABG Hemoglobin ABG Oxyhemoglobin ABG Sodium ABG Potassium ABG Chloride ABG Glucose Oxyhemoglobin Carboxyhemoglobin Sodium Potassium Chloride Carbon Dioxide BUN Creatinine Glucose POC Glucose 167 H 147 H Hemoglobin A1c Lactic Acid Calcium Phosphorus Magnesium Ferritin Total Bilirubin AST ALT Lactate Dehydrogenase C-Reactive Protein Albumin Triglycerides Arterial Blood Glucose Arterial Blood Ionized Calcium Urine Creatinine Coronavirus (PCR) Crossmatch 02/10/21 02/10/21 02/10/21 14:08 18:11 22:32 WBC RBC Hgb 6.4 L Hct 19.1 L* MCV MCH MCHC RDW Plt Count Lymph % (Auto) Lymph # (Auto) Seg Neutrophils % Seg Neuts % (Manual) Lymphocytes % (Manual) Monocytes % (Manual) Nucleated RBC % Seg Neutrophils # Seg Neutrophils # Man Lymphocytes # (Manual) Monocytes # (Manual) Eosinophils # (Manual) INR D-Dimer ABG pH POC ABG pCO2 POC ABG pO2 ABG pO2 ABG HCO3 ABG O2 Saturation ABG Base Excess ABG Hemoglobin ABG Oxyhemoglobin ABG Sodium ABG Potassium ABG Chloride ABG Glucose Oxyhemoglobin Carboxyhemoglobin Sodium 136 L Potassium 2.9 L* Chloride 90.2 L Carbon Dioxide 33 H BUN 42 H Creatinine 7.5 H Glucose 155 H POC Glucose 173 H Hemoglobin A1c Lactic Acid Calcium 6.1 L Phosphorus Magnesium Ferritin Total Bilirubin AST ALT Lactate Dehydrogenase C-Reactive Protein Albumin Triglycerides Arterial Blood Glucose Arterial Blood Ionized Calcium Urine Creatinine Coronavirus (PCR) Crossmatch 02/11/21 02/11/21 02/11/21 00:28 04:05 04:30 WBC RBC Hgb Hct MCV MCH MCHC RDW Plt Count Lymph % (Auto) Lymph # (Auto) Seg Neutrophils % Seg Neuts % (Manual) Lymphocytes % (Manual) Monocytes % (Manual) Nucleated RBC % Seg Neutrophils # Seg Neutrophils # Man Lymphocytes # (Manual) Monocytes # (Manual) Eosinophils # (Manual) INR D-Dimer ABG pH 7.307 L POC ABG pCO2 72.2 H POC ABG pO2 72.3 L ABG pO2 ABG HCO3 ABG O2 Saturation ABG Base Excess ABG Hemoglobin 8.2 L ABG Oxyhemoglobin ABG Sodium 132.3 L ABG Potassium 3.2 L ABG Chloride 91.0 L ABG Glucose 197 H Oxyhemoglobin Carboxyhemoglobin Sodium 135 L Potassium 3.3 L Chloride 87.1 L Carbon Dioxide 36 H BUN 71 H Creatinine 7.9 H Glucose 263 H POC Glucose 192 H Hemoglobin A1c Lactic Acid Calcium 6.2 L Phosphorus Magnesium Ferritin Total Bilirubin AST ALT Lactate Dehydrogenase C-Reactive Protein Albumin Triglycerides Arterial Blood Glucose 197 H Arterial Blood Ionized Calcium 3.3 L Urine Creatinine Coronavirus (PCR) Crossmatch 02/11/21 02/11/21 02/11/21 04:30 05:47 08:27 WBC RBC 2.22 L Hgb 7.2 L Hct 21.0 L MCV MCH MCHC RDW Plt Count Lymph % (Auto) 8.7 L Lymph # (Auto) 0.9 L Seg Neutrophils % 85.5 H Seg Neuts % (Manual) Lymphocytes % (Manual) Monocytes % (Manual) Nucleated RBC % Seg Neutrophils # 9.2 H Seg Neutrophils # Man Lymphocytes # (Manual) Monocytes # (Manual) Eosinophils # (Manual) INR 1.17 H D-Dimer 1930.92 H ABG pH POC ABG pCO2 POC ABG pO2 ABG pO2 ABG HCO3 ABG O2 Saturation ABG Base Excess ABG Hemoglobin ABG Oxyhemoglobin ABG Sodium ABG Potassium ABG Chloride ABG Glucose Oxyhemoglobin Carboxyhemoglobin Sodium Potassium Chloride Carbon Dioxide BUN Creatinine Glucose POC Glucose 189 H Hemoglobin A1c Lactic Acid Calcium Phosphorus Magnesium Ferritin Total Bilirubin AST ALT Lactate Dehydrogenase C-Reactive Protein Albumin Triglycerides Arterial Blood Glucose Arterial Blood Ionized Calcium Urine Creatinine Coronavirus (PCR) Crossmatch 02/11/21 02/11/21 02/11/21 09:00 09:00 13:18 WBC RBC Hgb Hct MCV MCH MCHC RDW Plt Count Lymph % (Auto) Lymph # (Auto) Seg Neutrophils % Seg Neuts % (Manual) Lymphocytes % (Manual) Monocytes % (Manual) Nucleated RBC % Seg Neutrophils # Seg Neutrophils # Man Lymphocytes # (Manual) Monocytes # (Manual) Eosinophils # (Manual) INR D-Dimer ABG pH POC ABG pCO2 POC ABG pO2 ABG pO2 ABG HCO3 ABG O2 Saturation ABG Base Excess ABG Hemoglobin ABG Oxyhemoglobin ABG Sodium ABG Potassium ABG Chloride ABG Glucose Oxyhemoglobin Carboxyhemoglobin Sodium Potassium Chloride Carbon Dioxide BUN Creatinine Glucose 126 H POC Glucose 160 H Hemoglobin A1c Lactic Acid Calcium Phosphorus Magnesium Ferritin 1253.0 H Total Bilirubin AST ALT Lactate Dehydrogenase 649 H C-Reactive Protein 12.60 H Albumin Triglycerides Arterial Blood Glucose Arterial Blood Ionized Calcium Urine Creatinine Coronavirus (PCR) Crossmatch 02/11/21 02/11/21 02/11/21 14:30 16:59 22:34 WBC RBC Hgb 7.1 L 6.7 L Hct 20.5 L 19.9 L* MCV MCH MCHC RDW Plt Count Lymph % (Auto) Lymph # (Auto) Seg Neutrophils % Seg Neuts % (Manual) Lymphocytes % (Manual) Monocytes % (Manual) Nucleated RBC % Seg Neutrophils # Seg Neutrophils # Man Lymphocytes # (Manual) Monocytes # (Manual) Eosinophils # (Manual) INR D-Dimer ABG pH POC ABG pCO2 POC ABG pO2 ABG pO2 ABG HCO3 ABG O2 Saturation ABG Base Excess ABG Hemoglobin ABG Oxyhemoglobin ABG Sodium ABG Potassium ABG Chloride ABG Glucose Oxyhemoglobin Carboxyhemoglobin Sodium Potassium Chloride Carbon Dioxide BUN Creatinine Glucose POC Glucose 151 H Hemoglobin A1c Lactic Acid Calcium Phosphorus Magnesium Ferritin Total Bilirubin AST ALT Lactate Dehydrogenase C-Reactive Protein Albumin Triglycerides Arterial Blood Glucose Arterial Blood Ionized Calcium Urine Creatinine Coronavirus (PCR) Crossmatch 02/11/21 02/12/21 02/12/21 23:42 04:41 05:19 WBC RBC Hgb Hct MCV MCH MCHC RDW Plt Count Lymph % (Auto) Lymph # (Auto) Seg Neutrophils % Seg Neuts % (Manual) Lymphocytes % (Manual) Monocytes % (Manual) Nucleated RBC % Seg Neutrophils # Seg Neutrophils # Man Lymphocytes # (Manual) Monocytes # (Manual) Eosinophils # (Manual) INR D-Dimer ABG pH POC ABG pCO2 POC ABG pO2 ABG pO2 69.0 L ABG HCO3 32.5 H ABG O2 Saturation ABG Base Excess 7.7 H ABG Hemoglobin 5.1 L ABG Oxyhemoglobin ABG Sodium ABG Potassium ABG Chloride ABG Glucose Oxyhemoglobin 94.7 L Carboxyhemoglobin Sodium Potassium Chloride Carbon Dioxide BUN Creatinine Glucose POC Glucose 165 H 153 H Hemoglobin A1c Lactic Acid Calcium Phosphorus Magnesium Ferritin Total Bilirubin AST ALT Lactate Dehydrogenase C-Reactive Protein Albumin Triglycerides Arterial Blood Glucose Arterial Blood Ionized Calcium Urine Creatinine Coronavirus (PCR) Crossmatch 02/12/21 02/12/21 02/12/21 06:35 06:35 08:40 WBC RBC 2.21 L Hgb 7.2 L Hct 20.7 L MCV MCH 33 H MCHC 35 H RDW Plt Count Lymph % (Auto) Lymph # (Auto) Seg Neutrophils % Seg Neuts % (Manual) Lymphocytes % (Manual) Monocytes % (Manual) Nucleated RBC % Seg Neutrophils # Seg Neutrophils # Man Lymphocytes # (Manual) Monocytes # (Manual) Eosinophils # (Manual) INR D-Dimer ABG pH POC ABG pCO2 POC ABG pO2 ABG pO2 ABG HCO3 ABG O2 Saturation ABG Base Excess ABG Hemoglobin ABG Oxyhemoglobin ABG Sodium ABG Potassium ABG Chloride ABG Glucose Oxyhemoglobin Carboxyhemoglobin Sodium 135 L Potassium 3.4 L Chloride 91.8 L Carbon Dioxide 36 H BUN 57 H Creatinine 6.8 H Glucose 163 H POC Glucose Hemoglobin A1c Lactic Acid Calcium 7.0 L Phosphorus Magnesium 1.60 L Ferritin Total Bilirubin AST ALT Lactate Dehydrogenase C-Reactive Protein Albumin Triglycerides Arterial Blood Glucose Arterial Blood Ionized Calcium Urine Creatinine Coronavirus (PCR) Crossmatch 02/12/21 02/12/21 02/12/21 10:45 12:04 17:19 WBC RBC Hgb Hct MCV MCH MCHC RDW Plt Count Lymph % (Auto) Lymph # (Auto) Seg Neutrophils % Seg Neuts % (Manual) Lymphocytes % (Manual) Monocytes % (Manual) Nucleated RBC % Seg Neutrophils # Seg Neutrophils # Man Lymphocytes # (Manual) Monocytes # (Manual) Eosinophils # (Manual) INR D-Dimer ABG pH POC ABG pCO2 POC ABG pO2 ABG pO2 ABG HCO3 ABG O2 Saturation ABG Base Excess ABG Hemoglobin ABG Oxyhemoglobin ABG Sodium ABG Potassium ABG Chloride ABG Glucose Oxyhemoglobin Carboxyhemoglobin Sodium Potassium Chloride Carbon Dioxide BUN Creatinine Glucose POC Glucose 165 H 165 H Hemoglobin A1c Lactic Acid Calcium Phosphorus Magnesium Ferritin Total Bilirubin AST ALT Lactate Dehydrogenase C-Reactive Protein Albumin Triglycerides 182 H Arterial Blood Glucose Arterial Blood Ionized Calcium Urine Creatinine Coronavirus (PCR) Crossmatch 02/12/21 02/13/21 02/13/21 23:18 05:00 05:36 WBC RBC Hgb Hct MCV MCH MCHC RDW Plt Count Lymph % (Auto) Lymph # (Auto) Seg Neutrophils % Seg Neuts % (Manual) Lymphocytes % (Manual) Monocytes % (Manual) Nucleated RBC % Seg Neutrophils # Seg Neutrophils # Man Lymphocytes # (Manual) Monocytes # (Manual) Eosinophils # (Manual) INR D-Dimer ABG pH POC ABG pCO2 60.8 H POC ABG pO2 76.4 L ABG pO2 ABG HCO3 ABG O2 Saturation ABG Base Excess ABG Hemoglobin 7.4 L ABG Oxyhemoglobin ABG Sodium 133.2 L ABG Potassium 3.3 L ABG Chloride 96.0 L ABG Glucose 168 H Oxyhemoglobin Carboxyhemoglobin Sodium Potassium Chloride Carbon Dioxide BUN Creatinine Glucose POC Glucose 163 H 151 H Hemoglobin A1c Lactic Acid Calcium Phosphorus Magnesium Ferritin Total Bilirubin AST ALT Lactate Dehydrogenase C-Reactive Protein Albumin Triglycerides Arterial Blood Glucose 168 H Arterial Blood Ionized Calcium 4.3 L Urine Creatinine Coronavirus (PCR) Crossmatch 02/13/21 02/13/21 02/13/21 06:40 06:40 06:40 WBC RBC 2.19 L Hgb 7.0 L Hct 20.8 L MCV 95 H MCH MCHC RDW Plt Count Lymph % (Auto) Lymph # (Auto) Seg Neutrophils % Seg Neuts % (Manual) Lymphocytes % (Manual) Monocytes % (Manual) Nucleated RBC % Seg Neutrophils # Seg Neutrophils # Man Lymphocytes # (Manual) Monocytes # (Manual) Eosinophils # (Manual) INR D-Dimer ABG pH POC ABG pCO2 POC ABG pO2 ABG pO2 ABG HCO3 ABG O2 Saturation ABG Base Excess ABG Hemoglobin ABG Oxyhemoglobin ABG Sodium ABG Potassium ABG Chloride ABG Glucose Oxyhemoglobin Carboxyhemoglobin Sodium 135 L Potassium 3.4 L Chloride 93.0 L Carbon Dioxide 32 H BUN 46 H Creatinine 5.8 H Glucose 148 H POC Glucose Hemoglobin A1c Lactic Acid Calcium 7.9 L Phosphorus Magnesium Ferritin Total Bilirubin AST ALT Lactate Dehydrogenase C-Reactive Protein 16.80 H Albumin Triglycerides Arterial Blood Glucose Arterial Blood Ionized Calcium Urine Creatinine Coronavirus (PCR) Crossmatch 02/13/21 02/13/21 02/13/21 06:40 07:38 07:38 WBC RBC Hgb Hct MCV MCH MCHC RDW Plt Count Lymph % (Auto) Lymph # (Auto) Seg Neutrophils % Seg Neuts % (Manual) Lymphocytes % (Manual) Monocytes % (Manual) Nucleated RBC % Seg Neutrophils # Seg Neutrophils # Man Lymphocytes # (Manual) Monocytes # (Manual) Eosinophils # (Manual) INR D-Dimer 1722.16 H ABG pH POC ABG pCO2 POC ABG pO2 ABG pO2 ABG HCO3 ABG O2 Saturation ABG Base Excess ABG Hemoglobin ABG Oxyhemoglobin ABG Sodium ABG Potassium ABG Chloride ABG Glucose Oxyhemoglobin Carboxyhemoglobin Sodium Potassium Chloride Carbon Dioxide BUN Creatinine Glucose POC Glucose Hemoglobin A1c Lactic Acid Calcium Phosphorus Magnesium 1.60 L Ferritin 976.5 H Total Bilirubin AST ALT Lactate Dehydrogenase C-Reactive Protein Albumin Triglycerides Arterial Blood Glucose Arterial Blood Ionized Calcium Urine Creatinine Coronavirus (PCR) Crossmatch 02/13/21 02/13/21 02/13/21 12:24 16:57 23:32 WBC RBC Hgb Hct MCV MCH MCHC RDW Plt Count Lymph % (Auto) Lymph # (Auto) Seg Neutrophils % Seg Neuts % (Manual) Lymphocytes % (Manual) Monocytes % (Manual) Nucleated RBC % Seg Neutrophils # Seg Neutrophils # Man Lymphocytes # (Manual) Monocytes # (Manual) Eosinophils # (Manual) INR D-Dimer ABG pH POC ABG pCO2 POC ABG pO2 ABG pO2 ABG HCO3 ABG O2 Saturation ABG Base Excess ABG Hemoglobin ABG Oxyhemoglobin ABG Sodium ABG Potassium ABG Chloride ABG Glucose Oxyhemoglobin Carboxyhemoglobin Sodium Potassium Chloride Carbon Dioxide BUN Creatinine Glucose POC Glucose 141 H 156 H 161 H Hemoglobin A1c Lactic Acid Calcium Phosphorus Magnesium Ferritin Total Bilirubin AST ALT Lactate Dehydrogenase C-Reactive Protein Albumin Triglycerides Arterial Blood Glucose Arterial Blood Ionized Calcium Urine Creatinine Coronavirus (PCR) Crossmatch 02/14/21 02/14/21 02/14/21 04:00 05:41 11:00 WBC RBC 2.14 L Hgb 6.9 L Hct 20.7 L MCV 97 H MCH 33 H MCHC RDW Plt Count Lymph % (Auto) Lymph # (Auto) Seg Neutrophils % Seg Neuts % (Manual) Lymphocytes % (Manual) Monocytes % (Manual) Nucleated RBC % Seg Neutrophils # Seg Neutrophils # Man Lymphocytes # (Manual) Monocytes # (Manual) Eosinophils # (Manual) INR D-Dimer ABG pH POC ABG pCO2 POC ABG pO2 ABG pO2 ABG HCO3 ABG O2 Saturation ABG Base Excess ABG Hemoglobin ABG Oxyhemoglobin ABG Sodium ABG Potassium ABG Chloride ABG Glucose Oxyhemoglobin Carboxyhemoglobin Sodium Potassium Chloride Carbon Dioxide BUN Creatinine Glucose POC Glucose 143 H Hemoglobin A1c Lactic Acid Calcium Phosphorus Magnesium Ferritin Total Bilirubin AST ALT Lactate Dehydrogenase C-Reactive Protein Albumin Triglycerides Arterial Blood Glucose Arterial Blood Ionized Calcium Urine Creatinine Coronavirus (PCR) Crossmatch See Detail 02/14/21 02/14/21 02/14/21 11:51 18:08 23:41 WBC RBC Hgb Hct MCV MCH MCHC RDW Plt Count Lymph % (Auto) Lymph # (Auto) Seg Neutrophils % Seg Neuts % (Manual) Lymphocytes % (Manual) Monocytes % (Manual) Nucleated RBC % Seg Neutrophils # Seg Neutrophils # Man Lymphocytes # (Manual) Monocytes # (Manual) Eosinophils # (Manual) INR D-Dimer ABG pH POC ABG pCO2 POC ABG pO2 ABG pO2 ABG HCO3 ABG O2 Saturation ABG Base Excess ABG Hemoglobin ABG Oxyhemoglobin ABG Sodium ABG Potassium ABG Chloride ABG Glucose Oxyhemoglobin Carboxyhemoglobin Sodium Potassium Chloride Carbon Dioxide BUN Creatinine Glucose POC Glucose 113 H 123 H 120 H Hemoglobin A1c Lactic Acid Calcium Phosphorus Magnesium Ferritin Total Bilirubin AST ALT Lactate Dehydrogenase C-Reactive Protein Albumin Triglycerides Arterial Blood Glucose Arterial Blood Ionized Calcium Urine Creatinine Coronavirus (PCR) Crossmatch 02/14/21 02/15/21 02/15/21 Unknown 05:00 05:00 WBC RBC Hgb Hct MCV MCH MCHC RDW Plt Count Lymph % (Auto) Lymph # (Auto) Seg Neutrophils % Seg Neuts % (Manual) Lymphocytes % (Manual) Monocytes % (Manual) Nucleated RBC % Seg Neutrophils # Seg Neutrophils # Man Lymphocytes # (Manual) Monocytes # (Manual) Eosinophils # (Manual) INR D-Dimer ABG pH POC ABG pCO2 53.4 H POC ABG pO2 61.8 L ABG pO2 ABG HCO3 ABG O2 Saturation ABG Base Excess ABG Hemoglobin 7.7 L ABG Oxyhemoglobin 88.8 L ABG Sodium ABG Potassium ABG Chloride ABG Glucose 143 H Oxyhemoglobin Carboxyhemoglobin 1.6 H Sodium Potassium Chloride 96.9 L Carbon Dioxide 33 H 31 H BUN 40 H 38 H Creatinine 5.2 H 4.8 H Glucose 152 H 132 H POC Glucose Hemoglobin A1c Lactic Acid Calcium 7.9 L Phosphorus Magnesium Ferritin Total Bilirubin AST ALT Lactate Dehydrogenase C-Reactive Protein Albumin Triglycerides Arterial Blood Glucose 143 H Arterial Blood Ionized Calcium Urine Creatinine Coronavirus (PCR) Crossmatch 0402/15/21 02/15/21 05:00 05:27 12:05 WBC RBC 2.30 L Hgb 7.1 L Hct 22.1 L MCV 96 H MCH MCHC RDW 15.7 H Plt Count Lymph % (Auto) 11.0 L Lymph # (Auto) 1.1 L Seg Neutrophils % 83.0 H Seg Neuts % (Manual) Lymphocytes % (Manual) Monocytes % (Manual) Nucleated RBC % Seg Neutrophils # 8.6 H Seg Neutrophils # Man Lymphocytes # (Manual) Monocytes # (Manual) Eosinophils # (Manual) INR D-Dimer ABG pH POC ABG pCO2 POC ABG pO2 ABG pO2 ABG HCO3 ABG O2 Saturation ABG Base Excess ABG Hemoglobin ABG Oxyhemoglobin ABG Sodium ABG Potassium ABG Chloride ABG Glucose Oxyhemoglobin Carboxyhemoglobin Sodium Potassium Chloride Carbon Dioxide BUN Creatinine Glucose POC Glucose 133 H 123 H Hemoglobin A1c Lactic Acid Calcium Phosphorus Magnesium Ferritin Total Bilirubin AST ALT Lactate Dehydrogenase C-Reactive Protein Albumin Triglycerides Arterial Blood Glucose Arterial Blood Ionized Calcium Urine Creatinine Coronavirus (PCR) Crossmatch 02/15/21 02/15/21 02/16/21 17:08 23:52 03:44 WBC RBC Hgb Hct MCV MCH MCHC RDW Plt Count Lymph % (Auto) Lymph # (Auto) Seg Neutrophils % Seg Neuts % (Manual) Lymphocytes % (Manual) Monocytes % (Manual) Nucleated RBC % Seg Neutrophils # Seg Neutrophils # Man Lymphocytes # (Manual) Monocytes # (Manual) Eosinophils # (Manual) INR D-Dimer ABG pH 7.307 L POC ABG pCO2 59.5 H POC ABG pO2 63.2 L ABG pO2 ABG HCO3 ABG O2 Saturation ABG Base Excess ABG Hemoglobin 9.3 L ABG Oxyhemoglobin ABG Sodium ABG Potassium ABG Chloride ABG Glucose 148 H Oxyhemoglobin Carboxyhemoglobin Sodium Potassium Chloride Carbon Dioxide BUN Creatinine Glucose POC Glucose 129 H 136 H Hemoglobin A1c Lactic Acid Calcium Phosphorus Magnesium Ferritin Total Bilirubin AST ALT Lactate Dehydrogenase C-Reactive Protein Albumin Triglycerides Arterial Blood Glucose 148 H Arterial Blood Ionized Calcium Urine Creatinine Coronavirus (PCR) Crossmatch 02/16/21 02/16/21 02/16/21 05:26 06:00 12:14 WBC RBC Hgb Hct MCV MCH MCHC RDW Plt Count Lymph % (Auto) Lymph # (Auto) Seg Neutrophils % Seg Neuts % (Manual) Lymphocytes % (Manual) Monocytes % (Manual) Nucleated RBC % Seg Neutrophils # Seg Neutrophils # Man Lymphocytes # (Manual) Monocytes # (Manual) Eosinophils # (Manual) INR D-Dimer ABG pH POC ABG pCO2 POC ABG pO2 ABG pO2 ABG HCO3 ABG O2 Saturation ABG Base Excess ABG Hemoglobin ABG Oxyhemoglobin ABG Sodium ABG Potassium ABG Chloride ABG Glucose Oxyhemoglobin Carboxyhemoglobin Sodium Potassium Chloride Carbon Dioxide BUN 52 H Creatinine 6.0 H Glucose 138 H POC Glucose 135 H 128 H Hemoglobin A1c Lactic Acid Calcium Phosphorus Magnesium Ferritin Total Bilirubin AST ALT Lactate Dehydrogenase C-Reactive Protein Albumin Triglycerides Arterial Blood Glucose Arterial Blood Ionized Calcium Urine Creatinine Coronavirus (PCR) Crossmatch 02/16/21 02/16/21 02/16/21 17:09 17:09 17:09 WBC RBC Hgb Hct MCV MCH MCHC RDW Plt Count Lymph % (Auto) Lymph # (Auto) Seg Neutrophils % Seg Neuts % (Manual) Lymphocytes % (Manual) Monocytes % (Manual) Nucleated RBC % Seg Neutrophils # Seg Neutrophils # Man Lymphocytes # (Manual) Monocytes # (Manual) Eosinophils # (Manual) INR D-Dimer 4256.08 H ABG pH POC ABG pCO2 POC ABG pO2 ABG pO2 ABG HCO3 ABG O2 Saturation ABG Base Excess ABG Hemoglobin ABG Oxyhemoglobin ABG Sodium ABG Potassium ABG Chloride ABG Glucose Oxyhemoglobin Carboxyhemoglobin Sodium Potassium Chloride Carbon Dioxide BUN Creatinine Glucose POC Glucose Hemoglobin A1c Lactic Acid Calcium Phosphorus Magnesium Ferritin 980.6 H Total Bilirubin AST ALT Lactate Dehydrogenase 441 H C-Reactive Protein 20.20 H Albumin Triglycerides Arterial Blood Glucose Arterial Blood Ionized Calcium Urine Creatinine Coronavirus (PCR) Crossmatch 02/16/21 02/16/21 02/16/21 17:25 23:16 Unknown WBC RBC 2.19 L Hgb 7.1 L Hct 21.3 L MCV 98 H MCH 33 H MCHC RDW 16.0 H Plt Count Lymph % (Auto) Lymph # (Auto) Seg Neutrophils % Seg Neuts % (Manual) 85.0 H Lymphocytes % (Manual) 6.0 L Monocytes % (Manual) Nucleated RBC % 4.0 H Seg Neutrophils # Seg Neutrophils # Man Lymphocytes # (Manual) 0.5 L Monocytes # (Manual) Eosinophils # (Manual) INR D-Dimer ABG pH POC ABG pCO2 POC ABG pO2 ABG pO2 ABG HCO3 ABG O2 Saturation ABG Base Excess ABG Hemoglobin ABG Oxyhemoglobin ABG Sodium ABG Potassium ABG Chloride ABG Glucose Oxyhemoglobin Carboxyhemoglobin Sodium Potassium Chloride Carbon Dioxide BUN Creatinine Glucose POC Glucose 146 H 150 H Hemoglobin A1c Lactic Acid Calcium Phosphorus Magnesium Ferritin Total Bilirubin AST ALT Lactate Dehydrogenase C-Reactive Protein Albumin Triglycerides Arterial Blood Glucose Arterial Blood Ionized Calcium Urine Creatinine Coronavirus (PCR) Crossmatch 02/17/21 02/17/21 02/17/21 04:00 04:14 04:14 WBC RBC Hgb Hct MCV MCH MCHC RDW Plt Count Lymph % (Auto) Lymph # (Auto) Seg Neutrophils % Seg Neuts % (Manual) Lymphocytes % (Manual) Monocytes % (Manual) Nucleated RBC % Seg Neutrophils # Seg Neutrophils # Man Lymphocytes # (Manual) Monocytes # (Manual) Eosinophils # (Manual) INR D-Dimer 3183.35 H ABG pH 7.293 L POC ABG pCO2 59.5 H POC ABG pO2 68.1 L ABG pO2 ABG HCO3 ABG O2 Saturation ABG Base Excess ABG Hemoglobin 7.7 L ABG Oxyhemoglobin ABG Sodium 133.4 L ABG Potassium ABG Chloride ABG Glucose 143 H Oxyhemoglobin Carboxyhemoglobin Sodium 136 L Potassium Chloride 97.3 L Carbon Dioxide BUN 49 H Creatinine 5.3 H Glucose 139 H POC Glucose Hemoglobin A1c Lactic Acid Calcium Phosphorus Magnesium Ferritin Total Bilirubin AST ALT Lactate Dehydrogenase C-Reactive Protein Albumin Triglycerides Arterial Blood Glucose 143 H Arterial Blood Ionized Calcium Urine Creatinine Coronavirus (PCR) Crossmatch 02/17/21 02/17/21 02/17/21 04:14 04:14 04:14 WBC RBC 2.14 L Hgb 6.9 L Hct 21.0 L MCV 98 H MCH MCHC RDW 15.8 H Plt Count Lymph % (Auto) Lymph # (Auto) Seg Neutrophils % Seg Neuts % (Manual) Lymphocytes % (Manual) Monocytes % (Manual) Nucleated RBC % Seg Neutrophils # Seg Neutrophils # Man Lymphocytes # (Manual) Monocytes # (Manual) Eosinophils # (Manual) INR D-Dimer ABG pH POC ABG pCO2 POC ABG pO2 ABG pO2 ABG HCO3 ABG O2 Saturation ABG Base Excess ABG Hemoglobin ABG Oxyhemoglobin ABG Sodium ABG Potassium ABG Chloride ABG Glucose Oxyhemoglobin Carboxyhemoglobin Sodium Potassium Chloride Carbon Dioxide BUN Creatinine Glucose POC Glucose Hemoglobin A1c Lactic Acid Calcium Phosphorus Magnesium Ferritin 894.0 H Total Bilirubin AST ALT Lactate Dehydrogenase 399 H C-Reactive Protein 22.10 H Albumin Triglycerides Arterial Blood Glucose Arterial Blood Ionized Calcium Urine Creatinine Coronavirus (PCR) Crossmatch 02/17/21 02/17/21 02/17/21 06:06 07:45 12:25 WBC RBC Hgb 7.6 L Hct 22.8 L MCV MCH MCHC RDW Plt Count Lymph % (Auto) Lymph # (Auto) Seg Neutrophils % Seg Neuts % (Manual) Lymphocytes % (Manual) Monocytes % (Manual) Nucleated RBC % Seg Neutrophils # Seg Neutrophils # Man Lymphocytes # (Manual) Monocytes # (Manual) Eosinophils # (Manual) INR D-Dimer ABG pH POC ABG pCO2 POC ABG pO2 ABG pO2 ABG HCO3 ABG O2 Saturation ABG Base Excess ABG Hemoglobin ABG Oxyhemoglobin ABG Sodium ABG Potassium ABG Chloride ABG Glucose Oxyhemoglobin Carboxyhemoglobin Sodium Potassium Chloride Carbon Dioxide BUN Creatinine Glucose POC Glucose 134 H Hemoglobin A1c Lactic Acid Calcium Phosphorus Magnesium Ferritin Total Bilirubin AST ALT Lactate Dehydrogenase C-Reactive Protein Albumin Triglycerides Arterial Blood Glucose Arterial Blood Ionized Calcium Urine Creatinine Coronavirus (PCR) Crossmatch See Detail 02/17/21 02/17/21 02/17/21 12:35 17:56 23:34 WBC RBC Hgb Hct MCV MCH MCHC RDW Plt Count Lymph % (Auto) Lymph # (Auto) Seg Neutrophils % Seg Neuts % (Manual) Lymphocytes % (Manual) Monocytes % (Manual) Nucleated RBC % Seg Neutrophils # Seg Neutrophils # Man Lymphocytes # (Manual) Monocytes # (Manual) Eosinophils # (Manual) INR D-Dimer ABG pH POC ABG pCO2 POC ABG pO2 ABG pO2 ABG HCO3 ABG O2 Saturation ABG Base Excess ABG Hemoglobin ABG Oxyhemoglobin ABG Sodium ABG Potassium ABG Chloride ABG Glucose Oxyhemoglobin Carboxyhemoglobin Sodium Potassium Chloride Carbon Dioxide BUN Creatinine Glucose POC Glucose 114 H 128 H 120 H Hemoglobin A1c Lactic Acid Calcium Phosphorus Magnesium Ferritin Total Bilirubin AST ALT Lactate Dehydrogenase C-Reactive Protein Albumin Triglycerides Arterial Blood Glucose Arterial Blood Ionized Calcium Urine Creatinine Coronavirus (PCR) Crossmatch 02/18/21 02/18/21 02/18/21 04:03 04:55 05:02 WBC RBC 2.40 L Hgb 7.5 L Hct 23.1 L MCV 96 H MCH MCHC RDW 16.8 H Plt Count Lymph % (Auto) Lymph # (Auto) Seg Neutrophils % Seg Neuts % (Manual) Lymphocytes % (Manual) Monocytes % (Manual) Nucleated RBC % Seg Neutrophils # Seg Neutrophils # Man Lymphocytes # (Manual) Monocytes # (Manual) Eosinophils # (Manual) INR D-Dimer ABG pH 7.219 L POC ABG pCO2 58.7 H POC ABG pO2 64.2 L ABG pO2 ABG HCO3 ABG O2 Saturation ABG Base Excess ABG Hemoglobin ABG Oxyhemoglobin ABG Sodium 130.5 L ABG Potassium ABG Chloride ABG Glucose 147 H Oxyhemoglobin Carboxyhemoglobin Sodium 134 L Potassium Chloride 97.9 L Carbon Dioxide BUN 64 H Creatinine 6.5 H Glucose 135 H POC Glucose Hemoglobin A1c Lactic Acid Calcium 8.0 L Phosphorus Magnesium Ferritin Total Bilirubin AST ALT Lactate Dehydrogenase C-Reactive Protein Albumin Triglycerides Arterial Blood Glucose 147 H Arterial Blood Ionized Calcium Urine Creatinine Coronavirus (PCR) Crossmatch 02/18/21 02/18/21 02/18/21 05:27 10:00 11:51 WBC RBC Hgb Hct MCV MCH MCHC RDW Plt Count Lymph % (Auto) Lymph # (Auto) Seg Neutrophils % Seg Neuts % (Manual) Lymphocytes % (Manual) Monocytes % (Manual) Nucleated RBC % Seg Neutrophils # Seg Neutrophils # Man Lymphocytes # (Manual) Monocytes # (Manual) Eosinophils # (Manual) INR D-Dimer ABG pH POC ABG pCO2 POC ABG pO2 ABG pO2 ABG HCO3 ABG O2 Saturation ABG Base Excess ABG Hemoglobin ABG Oxyhemoglobin ABG Sodium ABG Potassium ABG Chloride ABG Glucose Oxyhemoglobin Carboxyhemoglobin Sodium Potassium Chloride Carbon Dioxide BUN Creatinine Glucose POC Glucose 130 H 123 H Hemoglobin A1c Lactic Acid Calcium Phosphorus Magnesium Ferritin Total Bilirubin AST ALT Lactate Dehydrogenase C-Reactive Protein Albumin Triglycerides Arterial Blood Glucose Arterial Blood Ionized Calcium Urine Creatinine Coronavirus (PCR) Positive A Crossmatch 02/18/21 02/18/21 02/19/21 18:10 23:35 05:00 WBC RBC Hgb Hct MCV MCH MCHC RDW Plt Count Lymph % (Auto) Lymph # (Auto) Seg Neutrophils % Seg Neuts % (Manual) Lymphocytes % (Manual) Monocytes % (Manual) Nucleated RBC % Seg Neutrophils # Seg Neutrophils # Man Lymphocytes # (Manual) Monocytes # (Manual) Eosinophils # (Manual) INR D-Dimer ABG pH 7.232 L POC ABG pCO2 64.3 H POC ABG pO2 ABG pO2 ABG HCO3 ABG O2 Saturation ABG Base Excess ABG Hemoglobin 8.1 L ABG Oxyhemoglobin ABG Sodium 133.5 L ABG Potassium ABG Chloride ABG Glucose 148 H Oxyhemoglobin Carboxyhemoglobin 1.6 H Sodium Potassium Chloride Carbon Dioxide BUN Creatinine Glucose POC Glucose 123 H 137 H Hemoglobin A1c Lactic Acid Calcium Phosphorus Magnesium Ferritin Total Bilirubin AST ALT Lactate Dehydrogenase C-Reactive Protein Albumin Triglycerides Arterial Blood Glucose 148 H Arterial Blood Ionized Calcium Urine Creatinine Coronavirus (PCR) Crossmatch 02/19/21 02/19/21 02/19/21 05:12 05:45 05:45 WBC RBC Hgb Hct MCV MCH MCHC RDW Plt Count Lymph % (Auto) Lymph # (Auto) Seg Neutrophils % Seg Neuts % (Manual) Lymphocytes % (Manual) Monocytes % (Manual) Nucleated RBC % Seg Neutrophils # Seg Neutrophils # Man Lymphocytes # (Manual) Monocytes # (Manual) Eosinophils # (Manual) INR D-Dimer 4840.82 H ABG pH POC ABG pCO2 POC ABG pO2 ABG pO2 ABG HCO3 ABG O2 Saturation ABG Base Excess ABG Hemoglobin ABG Oxyhemoglobin ABG Sodium ABG Potassium ABG Chloride ABG Glucose Oxyhemoglobin Carboxyhemoglobin Sodium 135 L Potassium Chloride 97.8 L Carbon Dioxide BUN 58 H Creatinine 5.6 H Glucose 140 H POC Glucose 134 H Hemoglobin A1c Lactic Acid Calcium Phosphorus Magnesium Ferritin Total Bilirubin AST ALT Lactate Dehydrogenase 345 H C-Reactive Protein 15.20 H Albumin Triglycerides 195 H Arterial Blood Glucose Arterial Blood Ionized Calcium Urine Creatinine Coronavirus (PCR) Crossmatch 02/19/21 02/19/21 02/19/21 05:45 12:00 17:48 WBC RBC Hgb Hct MCV MCH MCHC RDW Plt Count Lymph % (Auto) Lymph # (Auto) Seg Neutrophils % Seg Neuts % (Manual) Lymphocytes % (Manual) Monocytes % (Manual) Nucleated RBC % Seg Neutrophils # Seg Neutrophils # Man Lymphocytes # (Manual) Monocytes # (Manual) Eosinophils # (Manual) INR D-Dimer ABG pH POC ABG pCO2 POC ABG pO2 ABG pO2 ABG HCO3 ABG O2 Saturation ABG Base Excess ABG Hemoglobin ABG Oxyhemoglobin ABG Sodium ABG Potassium ABG Chloride ABG Glucose Oxyhemoglobin Carboxyhemoglobin Sodium Potassium Chloride Carbon Dioxide BUN Creatinine Glucose POC Glucose 122 H 119 H Hemoglobin A1c Lactic Acid Calcium Phosphorus Magnesium Ferritin 951.8 H Total Bilirubin AST ALT Lactate Dehydrogenase C-Reactive Protein Albumin Triglycerides Arterial Blood Glucose Arterial Blood Ionized Calcium Urine Creatinine Coronavirus (PCR) Crossmatch 02/20/21 02/20/21 02/20/21 03:20 04:00 11:48 WBC RBC Hgb Hct MCV MCH MCHC RDW Plt Count Lymph % (Auto) Lymph # (Auto) Seg Neutrophils % Seg Neuts % (Manual) Lymphocytes % (Manual) Monocytes % (Manual) Nucleated RBC % Seg Neutrophils # Seg Neutrophils # Man Lymphocytes # (Manual) Monocytes # (Manual) Eosinophils # (Manual) INR D-Dimer ABG pH 7.276 L POC ABG pCO2 57.3 H POC ABG pO2 71.0 L ABG pO2 ABG HCO3 ABG O2 Saturation ABG Base Excess ABG Hemoglobin 8.2 L ABG Oxyhemoglobin 91.9 L ABG Sodium 128.1 L ABG Potassium 4.8 H ABG Chloride ABG Glucose Oxyhemoglobin Carboxyhemoglobin 1.6 H Sodium 136 L Potassium Chloride Carbon Dioxide BUN 69 H Creatinine 6.4 H Glucose POC Glucose 131 H Hemoglobin A1c Lactic Acid Calcium 8.1 L Phosphorus Magnesium Ferritin Total Bilirubin AST ALT Lactate Dehydrogenase C-Reactive Protein Albumin Triglycerides Arterial Blood Glucose Arterial Blood Ionized Calcium 4.5 L Urine Creatinine Coronavirus (PCR) Crossmatch 02/20/21 02/20/21 02/21/21 18:05 23:28 02:53 WBC RBC Hgb Hct MCV MCH MCHC RDW Plt Count Lymph % (Auto) Lymph # (Auto) Seg Neutrophils % Seg Neuts % (Manual) Lymphocytes % (Manual) Monocytes % (Manual) Nucleated RBC % Seg Neutrophils # Seg Neutrophils # Man Lymphocytes # (Manual) Monocytes # (Manual) Eosinophils # (Manual) INR D-Dimer ABG pH 7.288 L POC ABG pCO2 52.7 H POC ABG pO2 81.5 L ABG pO2 ABG HCO3 ABG O2 Saturation ABG Base Excess ABG Hemoglobin 8.5 L ABG Oxyhemoglobin 93.6 L ABG Sodium 132.5 L ABG Potassium 4.6 H ABG Chloride ABG Glucose 106 H Oxyhemoglobin Carboxyhemoglobin 1.6 H Sodium Potassium Chloride Carbon Dioxide BUN Creatinine Glucose POC Glucose 114 H 118 H Hemoglobin A1c Lactic Acid Calcium Phosphorus Magnesium Ferritin Total Bilirubin AST ALT Lactate Dehydrogenase C-Reactive Protein Albumin Triglycerides Arterial Blood Glucose 106 H Arterial Blood Ionized Calcium 4.4 L Urine Creatinine Coronavirus (PCR) Crossmatch 02/21/21 02/21/21 02/21/21 05:29 11:42 16:35 WBC RBC Hgb Hct MCV MCH MCHC RDW Plt Count Lymph % (Auto) Lymph # (Auto) Seg Neutrophils % Seg Neuts % (Manual) Lymphocytes % (Manual) Monocytes % (Manual) Nucleated RBC % Seg Neutrophils # Seg Neutrophils # Man Lymphocytes # (Manual) Monocytes # (Manual) Eosinophils # (Manual) INR D-Dimer ABG pH POC ABG pCO2 POC ABG pO2 ABG pO2 ABG HCO3 ABG O2 Saturation ABG Base Excess ABG Hemoglobin ABG Oxyhemoglobin ABG Sodium ABG Potassium ABG Chloride ABG Glucose Oxyhemoglobin Carboxyhemoglobin Sodium Potassium 5.6 H Chloride 97.6 L Carbon Dioxide BUN 68 H Creatinine 5.7 H Glucose 160 H POC Glucose 111 H 131 H Hemoglobin A1c Lactic Acid Calcium 8.0 L Phosphorus 7.90 H Magnesium 2.60 H Ferritin Total Bilirubin AST ALT Lactate Dehydrogenase C-Reactive Protein Albumin Triglycerides Arterial Blood Glucose Arterial Blood Ionized Calcium Urine Creatinine Coronavirus (PCR) Crossmatch 02/21/21 02/22/21 02/22/21 17:17 00:04 04:22 WBC RBC Hgb Hct MCV MCH MCHC RDW Plt Count Lymph % (Auto) Lymph # (Auto) Seg Neutrophils % Seg Neuts % (Manual) Lymphocytes % (Manual) Monocytes % (Manual) Nucleated RBC % Seg Neutrophils # Seg Neutrophils # Man Lymphocytes # (Manual) Monocytes # (Manual) Eosinophils # (Manual) INR D-Dimer ABG pH 7.250 L POC ABG pCO2 60.1 H POC ABG pO2 57.6 L ABG pO2 ABG HCO3 ABG O2 Saturation ABG Base Excess ABG Hemoglobin 8.8 L ABG Oxyhemoglobin 87.0 L ABG Sodium 133.4 L ABG Potassium 5.1 H ABG Chloride ABG Glucose 124 H Oxyhemoglobin Carboxyhemoglobin Sodium Potassium Chloride Carbon Dioxide BUN Creatinine Glucose POC Glucose 135 H 121 H Hemoglobin A1c Lactic Acid Calcium Phosphorus Magnesium Ferritin Total Bilirubin AST ALT Lactate Dehydrogenase C-Reactive Protein Albumin Triglycerides Arterial Blood Glucose 124 H Arterial Blood Ionized Calcium Urine Creatinine Coronavirus (PCR) Crossmatch 04/02/22/21 02/22/21 05:33 09:41 09:41 WBC 13.2 H RBC 2.35 L Hgb 7.5 L Hct 22.7 L MCV 96 H MCH MCHC RDW 17.0 H Plt Count Lymph % (Auto) Lymph # (Auto) Seg Neutrophils % Seg Neuts % (Manual) 93.0 H Lymphocytes % (Manual) 4.0 L Monocytes % (Manual) Nucleated RBC % 1.0 H Seg Neutrophils # Seg Neutrophils # Man 12.3 H Lymphocytes # (Manual) 0.5 L Monocytes # (Manual) Eosinophils # (Manual) INR D-Dimer ABG pH POC ABG pCO2 POC ABG pO2 ABG pO2 ABG HCO3 ABG O2 Saturation ABG Base Excess ABG Hemoglobin ABG Oxyhemoglobin ABG Sodium ABG Potassium ABG Chloride ABG Glucose Oxyhemoglobin Carboxyhemoglobin Sodium Potassium 5.4 H Chloride Carbon Dioxide BUN 61 H Creatinine 5.5 H Glucose 117 H POC Glucose 114 H Hemoglobin A1c Lactic Acid Calcium 8.3 L Phosphorus Magnesium Ferritin Total Bilirubin AST ALT Lactate Dehydrogenase C-Reactive Protein Albumin Triglycerides Arterial Blood Glucose Arterial Blood Ionized Calcium Urine Creatinine Coronavirus (PCR) Crossmatch 02/22/21 02/22/21 02/23/21 12:08 17:06 04:00 WBC RBC Hgb Hct MCV MCH MCHC RDW Plt Count Lymph % (Auto) Lymph # (Auto) Seg Neutrophils % Seg Neuts % (Manual) Lymphocytes % (Manual) Monocytes % (Manual) Nucleated RBC % Seg Neutrophils # Seg Neutrophils # Man Lymphocytes # (Manual) Monocytes # (Manual) Eosinophils # (Manual) INR D-Dimer ABG pH 7.246 L POC ABG pCO2 POC ABG pO2 ABG pO2 119.4 H ABG HCO3 26.6 H ABG O2 Saturation ABG Base Excess ABG Hemoglobin 8.8 L ABG Oxyhemoglobin ABG Sodium ABG Potassium ABG Chloride ABG Glucose Oxyhemoglobin Carboxyhemoglobin Sodium Potassium Chloride Carbon Dioxide BUN Creatinine Glucose POC Glucose 133 H 114 H Hemoglobin A1c Lactic Acid Calcium Phosphorus Magnesium Ferritin Total Bilirubin AST ALT Lactate Dehydrogenase C-Reactive Protein Albumin Triglycerides Arterial Blood Glucose Arterial Blood Ionized Calcium Urine Creatinine Coronavirus (PCR) Crossmatch 02/23/21 02/23/21 02/24/21 06:20 11:42 03:43 WBC RBC Hgb Hct MCV MCH MCHC RDW Plt Count Lymph % (Auto) Lymph # (Auto) Seg Neutrophils % Seg Neuts % (Manual) Lymphocytes % (Manual) Monocytes % (Manual) Nucleated RBC % Seg Neutrophils # Seg Neutrophils # Man Lymphocytes # (Manual) Monocytes # (Manual) Eosinophils # (Manual) INR D-Dimer ABG pH 7.287 L POC ABG pCO2 54.7 H POC ABG pO2 ABG pO2 ABG HCO3 ABG O2 Saturation ABG Base Excess ABG Hemoglobin 8.5 L ABG Oxyhemoglobin ABG Sodium 135.6 L ABG Potassium ABG Chloride ABG Glucose 117 H Oxyhemoglobin Carboxyhemoglobin Sodium Potassium Chloride 97.6 L Carbon Dioxide BUN 79 H Creatinine 6.2 H Glucose POC Glucose 108 H Hemoglobin A1c Lactic Acid Calcium 8.3 L Phosphorus Magnesium Ferritin Total Bilirubin AST ALT Lactate Dehydrogenase C-Reactive Protein Albumin Triglycerides Arterial Blood Glucose 117 H Arterial Blood Ionized Calcium Urine Creatinine Coronavirus (PCR) Crossmatch 02/24/21 02/24/21 02/24/21 04:25 04:25 04:25 WBC 11.5 H RBC 2.47 L Hgb 7.7 L Hct 23.5 L MCV 95 H MCH MCHC RDW 16.7 H Plt Count Lymph % (Auto) Lymph # (Auto) Seg Neutrophils % Seg Neuts % (Manual) 82.0 H Lymphocytes % (Manual) 3.0 L Monocytes % (Manual) 11.0 H Nucleated RBC % Seg Neutrophils # Seg Neutrophils # Man 9.4 H Lymphocytes # (Manual) 0.3 L Monocytes # (Manual) 1.3 H Eosinophils # (Manual) INR D-Dimer 4695.21 H ABG pH POC ABG pCO2 POC ABG pO2 ABG pO2 ABG HCO3 ABG O2 Saturation ABG Base Excess ABG Hemoglobin ABG Oxyhemoglobin ABG Sodium ABG Potassium ABG Chloride ABG Glucose Oxyhemoglobin Carboxyhemoglobin Sodium Potassium Chloride Carbon Dioxide BUN 68 H Creatinine 4.9 H Glucose 113 H POC Glucose Hemoglobin A1c Lactic Acid Calcium Phosphorus Magnesium Ferritin Total Bilirubin AST ALT Lactate Dehydrogenase C-Reactive Protein 7.20 H Albumin Triglycerides Arterial Blood Glucose Arterial Blood Ionized Calcium Urine Creatinine Coronavirus (PCR) Crossmatch 02/24/21 02/24/21 02/24/21 04:25 05:01 11:12 WBC RBC Hgb Hct MCV MCH MCHC RDW Plt Count Lymph % (Auto) Lymph # (Auto) Seg Neutrophils % Seg Neuts % (Manual) Lymphocytes % (Manual) Monocytes % (Manual) Nucleated RBC % Seg Neutrophils # Seg Neutrophils # Man Lymphocytes # (Manual) Monocytes # (Manual) Eosinophils # (Manual) INR D-Dimer ABG pH POC ABG pCO2 POC ABG pO2 ABG pO2 ABG HCO3 ABG O2 Saturation ABG Base Excess ABG Hemoglobin ABG Oxyhemoglobin ABG Sodium ABG Potassium ABG Chloride ABG Glucose Oxyhemoglobin Carboxyhemoglobin Sodium Potassium Chloride Carbon Dioxide BUN Creatinine Glucose POC Glucose 116 H 112 H Hemoglobin A1c Lactic Acid Calcium Phosphorus Magnesium Ferritin 1116.0 H Total Bilirubin AST ALT Lactate Dehydrogenase C-Reactive Protein Albumin Triglycerides Arterial Blood Glucose Arterial Blood Ionized Calcium Urine Creatinine Coronavirus (PCR) Crossmatch 02/24/21 02/25/21 02/25/21 18:11 03:42 05:58 WBC RBC Hgb Hct MCV MCH MCHC RDW Plt Count Lymph % (Auto) Lymph # (Auto) Seg Neutrophils % Seg Neuts % (Manual) Lymphocytes % (Manual) Monocytes % (Manual) Nucleated RBC % Seg Neutrophils # Seg Neutrophils # Man Lymphocytes # (Manual) Monocytes # (Manual) Eosinophils # (Manual) INR D-Dimer ABG pH 7.287 L POC ABG pCO2 58.2 H POC ABG pO2 ABG pO2 ABG HCO3 ABG O2 Saturation ABG Base Excess ABG Hemoglobin 8.4 L ABG Oxyhemoglobin 93.7 L ABG Sodium ABG Potassium ABG Chloride ABG Glucose 104 H Oxyhemoglobin Carboxyhemoglobin Sodium Potassium Chloride Carbon Dioxide BUN Creatinine Glucose POC Glucose 109 H 109 H Hemoglobin A1c Lactic Acid Calcium Phosphorus Magnesium Ferritin Total Bilirubin AST ALT Lactate Dehydrogenase C-Reactive Protein Albumin Triglycerides Arterial Blood Glucose 104 H Arterial Blood Ionized Calcium 4.5 L Urine Creatinine Coronavirus (PCR) Crossmatch 02/25/21 02/25/21 02/25/21 09:03 13:47 16:50 WBC RBC Hgb Hct MCV MCH MCHC RDW Plt Count Lymph % (Auto) Lymph # (Auto) Seg Neutrophils % Seg Neuts % (Manual) Lymphocytes % (Manual) Monocytes % (Manual) Nucleated RBC % Seg Neutrophils # Seg Neutrophils # Man Lymphocytes # (Manual) Monocytes # (Manual) Eosinophils # (Manual) INR D-Dimer 6536.84 H ABG pH POC ABG pCO2 POC ABG pO2 ABG pO2 ABG HCO3 ABG O2 Saturation ABG Base Excess ABG Hemoglobin ABG Oxyhemoglobin ABG Sodium ABG Potassium ABG Chloride ABG Glucose Oxyhemoglobin Carboxyhemoglobin Sodium Potassium Chloride Carbon Dioxide BUN Creatinine Glucose POC Glucose 144 H 114 H Hemoglobin A1c Lactic Acid Calcium Phosphorus Magnesium Ferritin Total Bilirubin AST ALT Lactate Dehydrogenase C-Reactive Protein Albumin Triglycerides Arterial Blood Glucose Arterial Blood Ionized Calcium Urine Creatinine Coronavirus (PCR) Crossmatch 02/25/21 02/26/21 02/26/21 23:53 03:35 05:36 WBC RBC Hgb Hct MCV MCH MCHC RDW Plt Count Lymph % (Auto) Lymph # (Auto) Seg Neutrophils % Seg Neuts % (Manual) Lymphocytes % (Manual) Monocytes % (Manual) Nucleated RBC % Seg Neutrophils # Seg Neutrophils # Man Lymphocytes # (Manual) Monocytes # (Manual) Eosinophils # (Manual) INR D-Dimer ABG pH 7.179 L POC ABG pCO2 76.6 H POC ABG pO2 ABG pO2 ABG HCO3 ABG O2 Saturation ABG Base Excess ABG Hemoglobin 9.0 L ABG Oxyhemoglobin ABG Sodium 134.8 L ABG Potassium ABG Chloride ABG Glucose 118 H Oxyhemoglobin Carboxyhemoglobin Sodium Potassium Chloride Carbon Dioxide BUN Creatinine Glucose POC Glucose 110 H 113 H Hemoglobin A1c Lactic Acid Calcium Phosphorus Magnesium Ferritin Total Bilirubin AST ALT Lactate Dehydrogenase C-Reactive Protein Albumin Triglycerides Arterial Blood Glucose 118 H Arterial Blood Ionized Calcium Urine Creatinine Coronavirus (PCR) Crossmatch 02/26/21 02/26/21 02/26/21 05:48 05:48 05:48 WBC 11.4 H RBC 2.40 L Hgb 7.5 L Hct 23.2 L MCV 97 H MCH MCHC RDW 17.4 H Plt Count Lymph % (Auto) Lymph # (Auto) Seg Neutrophils % Seg Neuts % (Manual) Lymphocytes % (Manual) Monocytes % (Manual) Nucleated RBC % Seg Neutrophils # Seg Neutrophils # Man Lymphocytes # (Manual) Monocytes # (Manual) Eosinophils # (Manual) INR D-Dimer ABG pH POC ABG pCO2 POC ABG pO2 ABG pO2 ABG HCO3 ABG O2 Saturation ABG Base Excess ABG Hemoglobin ABG Oxyhemoglobin ABG Sodium ABG Potassium ABG Chloride ABG Glucose Oxyhemoglobin Carboxyhemoglobin Sodium Potassium Chloride Carbon Dioxide BUN 72 H Creatinine 4.5 H Glucose 112 H POC Glucose Hemoglobin A1c Lactic Acid Calcium 7.7 L Phosphorus Magnesium Ferritin 867.8 H Total Bilirubin AST ALT Lactate Dehydrogenase C-Reactive Protein 5.90 H Albumin Triglycerides Arterial Blood Glucose Arterial Blood Ionized Calcium Urine Creatinine Coronavirus (PCR) Crossmatch 02/26/21 02/26/21 02/26/21 08:00 11:29 18:13 WBC RBC Hgb Hct MCV MCH MCHC RDW Plt Count Lymph % (Auto) Lymph # (Auto) Seg Neutrophils % Seg Neuts % (Manual) Lymphocytes % (Manual) Monocytes % (Manual) Nucleated RBC % Seg Neutrophils # Seg Neutrophils # Man Lymphocytes # (Manual) Monocytes # (Manual) Eosinophils # (Manual) INR D-Dimer ABG pH 7.228 L POC ABG pCO2 70.2 H POC ABG pO2 79.7 L ABG pO2 ABG HCO3 ABG O2 Saturation ABG Base Excess ABG Hemoglobin 7.6 L ABG Oxyhemoglobin 93.2 L ABG Sodium 135.7 L ABG Potassium ABG Chloride ABG Glucose 119 H Oxyhemoglobin Carboxyhemoglobin Sodium Potassium Chloride Carbon Dioxide BUN Creatinine Glucose POC Glucose 110 H 115 H Hemoglobin A1c Lactic Acid Calcium Phosphorus Magnesium Ferritin Total Bilirubin AST ALT Lactate Dehydrogenase C-Reactive Protein Albumin Triglycerides Arterial Blood Glucose 119 H Arterial Blood Ionized Calcium Urine Creatinine Coronavirus (PCR) Crossmatch 02/26/21 02/27/21 02/27/21 23:18 04:00 05:04 WBC RBC Hgb Hct MCV MCH MCHC RDW Plt Count Lymph % (Auto) Lymph # (Auto) Seg Neutrophils % Seg Neuts % (Manual) Lymphocytes % (Manual) Monocytes % (Manual) Nucleated RBC % Seg Neutrophils # Seg Neutrophils # Man Lymphocytes # (Manual) Monocytes # (Manual) Eosinophils # (Manual) INR D-Dimer ABG pH 7.316 L POC ABG pCO2 49.0 H POC ABG pO2 111.2 H ABG pO2 ABG HCO3 ABG O2 Saturation ABG Base Excess ABG Hemoglobin 7.7 L ABG Oxyhemoglobin ABG Sodium 135.0 L ABG Potassium ABG Chloride ABG Glucose 113 H Oxyhemoglobin Carboxyhemoglobin Sodium Potassium Chloride Carbon Dioxide BUN Creatinine Glucose POC Glucose 114 H 112 H Hemoglobin A1c Lactic Acid Calcium Phosphorus Magnesium Ferritin Total Bilirubin AST ALT Lactate Dehydrogenase C-Reactive Protein Albumin Triglycerides Arterial Blood Glucose 113 H Arterial Blood Ionized Calcium 4.4 L Urine Creatinine Coronavirus (PCR) Crossmatch 02/27/21 02/27/21 02/27/21 12:13 18:30 23:40 WBC RBC Hgb Hct MCV MCH MCHC RDW Plt Count Lymph % (Auto) Lymph # (Auto) Seg Neutrophils % Seg Neuts % (Manual) Lymphocytes % (Manual) Monocytes % (Manual) Nucleated RBC % Seg Neutrophils # Seg Neutrophils # Man Lymphocytes # (Manual) Monocytes # (Manual) Eosinophils # (Manual) INR D-Dimer ABG pH POC ABG pCO2 POC ABG pO2 ABG pO2 ABG HCO3 ABG O2 Saturation ABG Base Excess ABG Hemoglobin ABG Oxyhemoglobin ABG Sodium ABG Potassium ABG Chloride ABG Glucose Oxyhemoglobin Carboxyhemoglobin Sodium Potassium Chloride Carbon Dioxide BUN Creatinine Glucose POC Glucose 127 H 129 H 115 H Hemoglobin A1c Lactic Acid Calcium Phosphorus Magnesium Ferritin Total Bilirubin AST ALT Lactate Dehydrogenase C-Reactive Protein Albumin Triglycerides Arterial Blood Glucose Arterial Blood Ionized Calcium Urine Creatinine Coronavirus (PCR) Crossmatch 02/28/21 02/28/21 02/28/21 04:07 05:29 10:22 WBC RBC Hgb Hct MCV MCH MCHC RDW Plt Count Lymph % (Auto) Lymph # (Auto) Seg Neutrophils % Seg Neuts % (Manual) Lymphocytes % (Manual) Monocytes % (Manual) Nucleated RBC % Seg Neutrophils # Seg Neutrophils # Man Lymphocytes # (Manual) Monocytes # (Manual) Eosinophils # (Manual) INR D-Dimer ABG pH 7.260 L POC ABG pCO2 67.6 H POC ABG pO2 ABG pO2 ABG HCO3 ABG O2 Saturation ABG Base Excess ABG Hemoglobin 7.9 L ABG Oxyhemoglobin ABG Sodium ABG Potassium ABG Chloride ABG Glucose 129 H Oxyhemoglobin Carboxyhemoglobin Sodium Potassium Chloride Carbon Dioxide BUN 68 H Creatinine 3.5 H Glucose 117 H POC Glucose 117 H Hemoglobin A1c Lactic Acid Calcium 7.9 L Phosphorus Magnesium Ferritin Total Bilirubin AST ALT Lactate Dehydrogenase C-Reactive Protein Albumin Triglycerides Arterial Blood Glucose 129 H Arterial Blood Ionized Calcium Urine Creatinine Coronavirus (PCR) Crossmatch 02/28/21 02/28/21 03/01/21 11:51 17:26 00:31 WBC RBC Hgb Hct MCV MCH MCHC RDW Plt Count Lymph % (Auto) Lymph # (Auto) Seg Neutrophils % Seg Neuts % (Manual) Lymphocytes % (Manual) Monocytes % (Manual) Nucleated RBC % Seg Neutrophils # Seg Neutrophils # Man Lymphocytes # (Manual) Monocytes # (Manual) Eosinophils # (Manual) INR D-Dimer ABG pH POC ABG pCO2 POC ABG pO2 ABG pO2 ABG HCO3 ABG O2 Saturation ABG Base Excess ABG Hemoglobin ABG Oxyhemoglobin ABG Sodium ABG Potassium ABG Chloride ABG Glucose Oxyhemoglobin Carboxyhemoglobin Sodium Potassium Chloride Carbon Dioxide BUN Creatinine Glucose POC Glucose 123 H 121 H 112 H Hemoglobin A1c Lactic Acid Calcium Phosphorus Magnesium Ferritin Total Bilirubin AST ALT Lactate Dehydrogenase C-Reactive Protein Albumin Triglycerides Arterial Blood Glucose Arterial Blood Ionized Calcium Urine Creatinine Coronavirus (PCR) Crossmatch 03/01/21 03/01/21 03/01/21 03:29 06:00 06:17 WBC RBC Hgb Hct MCV MCH MCHC RDW Plt Count Lymph % (Auto) Lymph # (Auto) Seg Neutrophils % Seg Neuts % (Manual) Lymphocytes % (Manual) Monocytes % (Manual) Nucleated RBC % Seg Neutrophils # Seg Neutrophils # Man Lymphocytes # (Manual) Monocytes # (Manual) Eosinophils # (Manual) INR D-Dimer ABG pH POC ABG pCO2 52.3 H POC ABG pO2 115.1 H ABG pO2 ABG HCO3 ABG O2 Saturation ABG Base Excess ABG Hemoglobin 7.5 L ABG Oxyhemoglobin ABG Sodium 135.6 L ABG Potassium ABG Chloride ABG Glucose 117 H Oxyhemoglobin Carboxyhemoglobin 1.6 H Sodium Potassium Chloride Carbon Dioxide BUN 78 H Creatinine 3.6 H Glucose 110 H POC Glucose 121 H Hemoglobin A1c Lactic Acid Calcium 8.0 L Phosphorus Magnesium Ferritin Total Bilirubin AST ALT Lactate Dehydrogenase C-Reactive Protein Albumin Triglycerides Arterial Blood Glucose 117 H Arterial Blood Ionized Calcium Urine Creatinine Coronavirus (PCR) Crossmatch 03/01/21 03/02/21 03/02/21 23:22 04:43 05:46 WBC RBC Hgb Hct MCV MCH MCHC RDW Plt Count Lymph % (Auto) Lymph # (Auto) Seg Neutrophils % Seg Neuts % (Manual) Lymphocytes % (Manual) Monocytes % (Manual) Nucleated RBC % Seg Neutrophils # Seg Neutrophils # Man Lymphocytes # (Manual) Monocytes # (Manual) Eosinophils # (Manual) INR D-Dimer ABG pH POC ABG pCO2 POC ABG pO2 ABG pO2 ABG HCO3 ABG O2 Saturation ABG Base Excess ABG Hemoglobin ABG Oxyhemoglobin ABG Sodium ABG Potassium ABG Chloride ABG Glucose Oxyhemoglobin Carboxyhemoglobin Sodium Potassium Chloride Carbon Dioxide BUN 89 H Creatinine 3.6 H Glucose 116 H POC Glucose 116 H 126 H Hemoglobin A1c Lactic Acid Calcium 7.7 L Phosphorus Magnesium Ferritin Total Bilirubin AST ALT Lactate Dehydrogenase C-Reactive Protein Albumin Triglycerides Arterial Blood Glucose Arterial Blood Ionized Calcium Urine Creatinine Coronavirus (PCR) Crossmatch 03/02/21 03/02/21 03/02/21 08:35 11:35 15:17 WBC RBC 2.15 L Hgb 7.1 L Hct 20.4 L MCV 95 H MCH 33 H MCHC 35 H RDW 17.6 H Plt Count Lymph % (Auto) Lymph # (Auto) Seg Neutrophils % Seg Neuts % (Manual) Lymphocytes % (Manual) Monocytes % (Manual) Nucleated RBC % Seg Neutrophils # Seg Neutrophils # Man Lymphocytes # (Manual) Monocytes # (Manual) Eosinophils # (Manual) INR D-Dimer ABG pH POC ABG pCO2 POC ABG pO2 ABG pO2 ABG HCO3 ABG O2 Saturation ABG Base Excess ABG Hemoglobin ABG Oxyhemoglobin ABG Sodium ABG Potassium ABG Chloride ABG Glucose Oxyhemoglobin Carboxyhemoglobin Sodium Potassium Chloride Carbon Dioxide BUN Creatinine Glucose POC Glucose 117 H Hemoglobin A1c Lactic Acid Calcium Phosphorus Magnesium Ferritin Total Bilirubin AST ALT Lactate Dehydrogenase C-Reactive Protein Albumin Triglycerides Arterial Blood Glucose Arterial Blood Ionized Calcium Urine Creatinine Coronavirus (PCR) Positive A Crossmatch 03/02/21 03/02/21 03/02/21 17:50 23:26 Unknown WBC RBC Hgb Hct MCV MCH MCHC RDW Plt Count Lymph % (Auto) Lymph # (Auto) Seg Neutrophils % Seg Neuts % (Manual) Lymphocytes % (Manual) Monocytes % (Manual) Nucleated RBC % Seg Neutrophils # Seg Neutrophils # Man Lymphocytes # (Manual) Monocytes # (Manual) Eosinophils # (Manual) INR D-Dimer ABG pH 7.282 L POC ABG pCO2 POC ABG pO2 ABG pO2 150.8 H ABG HCO3 30.1 H ABG O2 Saturation ABG Base Excess ABG Hemoglobin 6.9 L ABG Oxyhemoglobin ABG Sodium ABG Potassium ABG Chloride ABG Glucose Oxyhemoglobin Carboxyhemoglobin Sodium Potassium Chloride Carbon Dioxide BUN Creatinine Glucose POC Glucose 131 H 143 H Hemoglobin A1c Lactic Acid Calcium Phosphorus Magnesium Ferritin Total Bilirubin AST ALT Lactate Dehydrogenase C-Reactive Protein Albumin Triglycerides Arterial Blood Glucose Arterial Blood Ionized Calcium Urine Creatinine Coronavirus (PCR) Crossmatch 05/04/21 05/04/21 05/04/21 03:50 05:46 17:16 WBC RBC Hgb Hct MCV MCH MCHC RDW Plt Count Lymph % (Auto) Lymph # (Auto) Seg Neutrophils % Seg Neuts % (Manual) Lymphocytes % (Manual) Monocytes % (Manual) Nucleated RBC % Seg Neutrophils # Seg Neutrophils # Man Lymphocytes # (Manual) Monocytes # (Manual) Eosinophils # (Manual) INR D-Dimer ABG pH 7.276 L POC ABG pCO2 POC ABG pO2 ABG pO2 ABG HCO3 31.7 H ABG O2 Saturation ABG Base Excess 4.3 H ABG Hemoglobin 6.7 L ABG Oxyhemoglobin ABG Sodium ABG Potassium ABG Chloride ABG Glucose Oxyhemoglobin 93.5 L Carboxyhemoglobin Sodium Potassium Chloride Carbon Dioxide BUN Creatinine Glucose POC Glucose 107 H 109 H Hemoglobin A1c Lactic Acid Calcium Phosphorus Magnesium Ferritin Total Bilirubin AST ALT Lactate Dehydrogenase C-Reactive Protein Albumin Triglycerides Arterial Blood Glucose Arterial Blood Ionized Calcium Urine Creatinine Coronavirus (PCR) Crossmatch 03/03/21 03/03/21 03/03/21 23:34 Unknown Unknown WBC 12.4 H RBC 2.26 L Hgb 6.8 L Hct 21.8 L MCV 96 H MCH MCHC 31 L RDW 18.5 H Plt Count Lymph % (Auto) Lymph # (Auto) Seg Neutrophils % Seg Neuts % (Manual) Lymphocytes % (Manual) Monocytes % (Manual) Nucleated RBC % Seg Neutrophils # Seg Neutrophils # Man Lymphocytes # (Manual) Monocytes # (Manual) Eosinophils # (Manual) INR D-Dimer ABG pH POC ABG pCO2 POC ABG pO2 ABG pO2 ABG HCO3 ABG O2 Saturation ABG Base Excess ABG Hemoglobin ABG Oxyhemoglobin ABG Sodium ABG Potassium ABG Chloride ABG Glucose Oxyhemoglobin Carboxyhemoglobin Sodium Potassium Chloride Carbon Dioxide BUN 70 H Creatinine 2.6 H Glucose 118 H POC Glucose 135 H Hemoglobin A1c Lactic Acid Calcium Phosphorus Magnesium Ferritin Total Bilirubin AST ALT Lactate Dehydrogenase C-Reactive Protein Albumin Triglycerides Arterial Blood Glucose Arterial Blood Ionized Calcium Urine Creatinine Coronavirus (PCR) Crossmatch 03/03/21 03/03/21 03/04/21 Unknown Unknown 03:15 WBC RBC Hgb Hct MCV MCH MCHC RDW Plt Count Lymph % (Auto) Lymph # (Auto) Seg Neutrophils % Seg Neuts % (Manual) Lymphocytes % (Manual) Monocytes % (Manual) Nucleated RBC % Seg Neutrophils # Seg Neutrophils # Man Lymphocytes # (Manual) Monocytes # (Manual) Eosinophils # (Manual) INR 1.15 H D-Dimer ABG pH 7.285 L POC ABG pCO2 POC ABG pO2 ABG pO2 ABG HCO3 28.8 H ABG O2 Saturation ABG Base Excess ABG Hemoglobin 8.3 L ABG Oxyhemoglobin ABG Sodium ABG Potassium ABG Chloride ABG Glucose Oxyhemoglobin 93.4 L Carboxyhemoglobin Sodium Potassium Chloride Carbon Dioxide BUN Creatinine Glucose POC Glucose Hemoglobin A1c Lactic Acid Calcium Phosphorus Magnesium Ferritin Total Bilirubin AST ALT Lactate Dehydrogenase C-Reactive Protein Albumin Triglycerides Arterial Blood Glucose Arterial Blood Ionized Calcium Urine Creatinine Coronavirus (PCR) Crossmatch See Detail 03/04/21 03/04/21 03/04/21 03:28 05:39 11:47 WBC RBC Hgb Hct MCV MCH MCHC RDW Plt Count Lymph % (Auto) Lymph # (Auto) Seg Neutrophils % Seg Neuts % (Manual) Lymphocytes % (Manual) Monocytes % (Manual) Nucleated RBC % Seg Neutrophils # Seg Neutrophils # Man Lymphocytes # (Manual) Monocytes # (Manual) Eosinophils # (Manual) INR D-Dimer ABG pH 7.285 L POC ABG pCO2 62.0 H POC ABG pO2 80.9 L ABG pO2 ABG HCO3 ABG O2 Saturation ABG Base Excess ABG Hemoglobin 8.3 L ABG Oxyhemoglobin ABG Sodium ABG Potassium ABG Chloride ABG Glucose 144 H Oxyhemoglobin Carboxyhemoglobin Sodium Potassium Chloride Carbon Dioxide BUN Creatinine Glucose POC Glucose 123 H 125 H Hemoglobin A1c Lactic Acid Calcium Phosphorus Magnesium Ferritin Total Bilirubin AST ALT Lactate Dehydrogenase C-Reactive Protein Albumin Triglycerides Arterial Blood Glucose 144 H Arterial Blood Ionized Calcium Urine Creatinine Coronavirus (PCR) Crossmatch 03/04/21 03/04/21 03/04/21 16:49 Unknown Unknown WBC 13.9 H RBC 2.58 L Hgb 7.7 L Hct 24.0 L MCV MCH MCHC RDW 20.3 H Plt Count Lymph % (Auto) Lymph # (Auto) Seg Neutrophils % Seg Neuts % (Manual) Lymphocytes % (Manual) Monocytes % (Manual) Nucleated RBC % Seg Neutrophils # Seg Neutrophils # Man Lymphocytes # (Manual) Monocytes # (Manual) Eosinophils # (Manual) INR D-Dimer ABG pH POC ABG pCO2 POC ABG pO2 ABG pO2 ABG HCO3 ABG O2 Saturation ABG Base Excess ABG Hemoglobin ABG Oxyhemoglobin ABG Sodium ABG Potassium ABG Chloride ABG Glucose Oxyhemoglobin Carboxyhemoglobin Sodium Potassium Chloride Carbon Dioxide BUN 78 H Creatinine 2.5 H Glucose 131 H POC Glucose 120 H Hemoglobin A1c Lactic Acid Calcium 8.2 L Phosphorus Magnesium Ferritin Total Bilirubin AST ALT Lactate Dehydrogenase C-Reactive Protein Albumin Triglycerides Arterial Blood Glucose Arterial Blood Ionized Calcium Urine Creatinine Coronavirus (PCR) Crossmatch 03/05/21 03/05/21 03/05/21 00:31 04:18 05:30 WBC RBC Hgb Hct MCV MCH MCHC RDW Plt Count Lymph % (Auto) Lymph # (Auto) Seg Neutrophils % Seg Neuts % (Manual) Lymphocytes % (Manual) Monocytes % (Manual) Nucleated RBC % Seg Neutrophils # Seg Neutrophils # Man Lymphocytes # (Manual) Monocytes # (Manual) Eosinophils # (Manual) INR D-Dimer ABG pH 7.160 L POC ABG pCO2 86.3 H POC ABG pO2 55.9 L ABG pO2 ABG HCO3 ABG O2 Saturation ABG Base Excess ABG Hemoglobin 8.3 L ABG Oxyhemoglobin 82.1 L ABG Sodium ABG Potassium ABG Chloride 108.0 H ABG Glucose 149 H Oxyhemoglobin Carboxyhemoglobin 1.7 H Sodium Potassium Chloride Carbon Dioxide BUN Creatinine Glucose POC Glucose 129 H 133 H Hemoglobin A1c Lactic Acid Calcium Phosphorus Magnesium Ferritin Total Bilirubin AST ALT Lactate Dehydrogenase C-Reactive Protein Albumin Triglycerides Arterial Blood Glucose 149 H Arterial Blood Ionized Calcium Urine Creatinine Coronavirus (PCR) Crossmatch 03/05/21 03/05/21 03/05/21 09:00 11:31 16:55 WBC RBC Hgb Hct MCV MCH MCHC RDW Plt Count Lymph % (Auto) Lymph # (Auto) Seg Neutrophils % Seg Neuts % (Manual) Lymphocytes % (Manual) Monocytes % (Manual) Nucleated RBC % Seg Neutrophils # Seg Neutrophils # Man Lymphocytes # (Manual) Monocytes # (Manual) Eosinophils # (Manual) INR D-Dimer ABG pH POC ABG pCO2 POC ABG pO2 ABG pO2 ABG HCO3 ABG O2 Saturation ABG Base Excess ABG Hemoglobin ABG Oxyhemoglobin ABG Sodium ABG Potassium ABG Chloride ABG Glucose Oxyhemoglobin Carboxyhemoglobin Sodium Potassium Chloride Carbon Dioxide BUN 84 H Creatinine 2.3 H Glucose 143 H POC Glucose 133 H 146 H Hemoglobin A1c Lactic Acid Calcium 8.0 L Phosphorus Magnesium Ferritin Total Bilirubin AST ALT Lactate Dehydrogenase C-Reactive Protein Albumin Triglycerides Arterial Blood Glucose Arterial Blood Ionized Calcium Urine Creatinine Coronavirus (PCR) Crossmatch 03/05/21 03/05/21 03/05/21 23:20 Unknown Unknown WBC RBC Hgb Hct MCV MCH MCHC RDW Plt Count Lymph % (Auto) Lymph # (Auto) Seg Neutrophils % Seg Neuts % (Manual) Lymphocytes % (Manual) Monocytes % (Manual) Nucleated RBC % Seg Neutrophils # Seg Neutrophils # Man Lymphocytes # (Manual) Monocytes # (Manual) Eosinophils # (Manual) INR D-Dimer ABG pH POC ABG pCO2 POC ABG pO2 ABG pO2 ABG HCO3 ABG O2 Saturation ABG Base Excess ABG Hemoglobin ABG Oxyhemoglobin ABG Sodium ABG Potassium ABG Chloride ABG Glucose Oxyhemoglobin Carboxyhemoglobin Sodium Potassium Chloride Carbon Dioxide BUN Creatinine Glucose POC Glucose 144 H Hemoglobin A1c Lactic Acid Calcium Phosphorus Magnesium Ferritin Total Bilirubin AST ALT Lactate Dehydrogenase C-Reactive Protein Albumin Triglycerides Arterial Blood Glucose Arterial Blood Ionized Calcium Urine Creatinine 65.9 H 66.1 H Coronavirus (PCR) Crossmatch 03/06/21 03/06/21 03/06/21 03:23 05:20 11:59 WBC RBC Hgb Hct MCV MCH MCHC RDW Plt Count Lymph % (Auto) Lymph # (Auto) Seg Neutrophils % Seg Neuts % (Manual) Lymphocytes % (Manual) Monocytes % (Manual) Nucleated RBC % Seg Neutrophils # Seg Neutrophils # Man Lymphocytes # (Manual) Monocytes # (Manual) Eosinophils # (Manual) INR D-Dimer ABG pH 7.239 L POC ABG pCO2 67.0 H POC ABG pO2 76.6 L ABG pO2 ABG HCO3 ABG O2 Saturation ABG Base Excess ABG Hemoglobin 8.0 L ABG Oxyhemoglobin 92.4 L ABG Sodium 145.6 H ABG Potassium ABG Chloride 108.0 H ABG Glucose 134 H Oxyhemoglobin Carboxyhemoglobin 2.1 H Sodium Potassium Chloride Carbon Dioxide BUN Creatinine Glucose POC Glucose 114 H 132 H Hemoglobin A1c Lactic Acid Calcium Phosphorus Magnesium Ferritin Total Bilirubin AST ALT Lactate Dehydrogenase C-Reactive Protein Albumin Triglycerides Arterial Blood Glucose 134 H Arterial Blood Ionized Calcium Urine Creatinine Coronavirus (PCR) Crossmatch 03/06/21 03/06/21 03/06/21 17:35 17:45 18:01 WBC RBC Hgb Hct MCV MCH MCHC RDW Plt Count Lymph % (Auto) Lymph # (Auto) Seg Neutrophils % Seg Neuts % (Manual) Lymphocytes % (Manual) Monocytes % (Manual) Nucleated RBC % Seg Neutrophils # Seg Neutrophils # Man Lymphocytes # (Manual) Monocytes # (Manual) Eosinophils # (Manual) INR D-Dimer ABG pH 7.286 L POC ABG pCO2 POC ABG pO2 ABG pO2 78.1 L ABG HCO3 33.7 H ABG O2 Saturation ABG Base Excess 5.5 H ABG Hemoglobin 10.3 L ABG Oxyhemoglobin ABG Sodium ABG Potassium ABG Chloride ABG Glucose Oxyhemoglobin 92.3 L Carboxyhemoglobin Sodium 148 H Potassium Chloride 107.1 H Carbon Dioxide 33 H BUN 91 H Creatinine 2.1 H Glucose 149 H POC Glucose 132 H Hemoglobin A1c Lactic Acid Calcium 8.2 L Phosphorus Magnesium Ferritin Total Bilirubin AST ALT Lactate Dehydrogenase C-Reactive Protein Albumin Triglycerides Arterial Blood Glucose Arterial Blood Ionized Calcium Urine Creatinine Coronavirus (PCR) Crossmatch 03/06/21 03/07/21 03/07/21 23:44 03:30 03:33 WBC RBC Hgb Hct MCV MCH MCHC RDW Plt Count Lymph % (Auto) Lymph # (Auto) Seg Neutrophils % Seg Neuts % (Manual) Lymphocytes % (Manual) Monocytes % (Manual) Nucleated RBC % Seg Neutrophils # Seg Neutrophils # Man Lymphocytes # (Manual) Monocytes # (Manual) Eosinophils # (Manual) INR D-Dimer ABG pH POC ABG pCO2 60.0 H POC ABG pO2 76.2 L ABG pO2 ABG HCO3 ABG O2 Saturation ABG Base Excess ABG Hemoglobin 7.7 L ABG Oxyhemoglobin 93.2 L ABG Sodium 148.6 H ABG Potassium ABG Chloride 112.0 H ABG Glucose 173 H Oxyhemoglobin Carboxyhemoglobin 1.7 H Sodium 147 H Potassium Chloride 107.4 H Carbon Dioxide BUN 90 H Creatinine 2.0 H Glucose 158 H POC Glucose 144 H Hemoglobin A1c Lactic Acid Calcium 8.0 L Phosphorus Magnesium Ferritin Total Bilirubin AST ALT Lactate Dehydrogenase C-Reactive Protein Albumin Triglycerides Arterial Blood Glucose 173 H Arterial Blood Ionized Calcium Urine Creatinine Coronavirus (PCR) Crossmatch 03/07/21 03/07/21 03/07/21 05:11 08:01 12:29 WBC 11.8 H RBC 2.45 L Hgb 7.2 L Hct 23.4 L MCV 96 H MCH MCHC 31 L RDW 19.7 H Plt Count Lymph % (Auto) 7.3 L Lymph # (Auto) 0.9 L Seg Neutrophils % 82.8 H Seg Neuts % (Manual) Lymphocytes % (Manual) Monocytes % (Manual) Nucleated RBC % Seg Neutrophils # 9.8 H Seg Neutrophils # Man Lymphocytes # (Manual) Monocytes # (Manual) Eosinophils # (Manual) INR D-Dimer ABG pH POC ABG pCO2 POC ABG pO2 ABG pO2 ABG HCO3 ABG O2 Saturation ABG Base Excess ABG Hemoglobin ABG Oxyhemoglobin ABG Sodium ABG Potassium ABG Chloride ABG Glucose Oxyhemoglobin Carboxyhemoglobin Sodium Potassium Chloride Carbon Dioxide BUN Creatinine Glucose POC Glucose 144 H 117 H Hemoglobin A1c Lactic Acid Calcium Phosphorus Magnesium Ferritin Total Bilirubin AST ALT Lactate Dehydrogenase C-Reactive Protein Albumin Triglycerides Arterial Blood Glucose Arterial Blood Ionized Calcium Urine Creatinine Coronavirus (PCR) Crossmatch 03/07/21 03/07/21 03/08/21 17:51 23:21 02:59 WBC RBC Hgb Hct MCV MCH MCHC RDW Plt Count Lymph % (Auto) Lymph # (Auto) Seg Neutrophils % Seg Neuts % (Manual) Lymphocytes % (Manual) Monocytes % (Manual) Nucleated RBC % Seg Neutrophils # Seg Neutrophils # Man Lymphocytes # (Manual) Monocytes # (Manual) Eosinophils # (Manual) INR D-Dimer ABG pH POC ABG pCO2 61.8 H POC ABG pO2 76.5 L ABG pO2 ABG HCO3 ABG O2 Saturation ABG Base Excess ABG Hemoglobin 8.3 L ABG Oxyhemoglobin 92.6 L ABG Sodium 150.5 H ABG Potassium ABG Chloride 114.0 H ABG Glucose 170 H Oxyhemoglobin Carboxyhemoglobin 1.9 H Sodium Potassium Chloride Carbon Dioxide BUN Creatinine Glucose POC Glucose 140 H 141 H Hemoglobin A1c Lactic Acid Calcium Phosphorus Magnesium Ferritin Total Bilirubin AST ALT Lactate Dehydrogenase C-Reactive Protein Albumin Triglycerides Arterial Blood Glucose 170 H Arterial Blood Ionized Calcium Urine Creatinine Coronavirus (PCR) Crossmatch 03/08/21 03/08/21 03/08/21 04:20 05:07 11:59 WBC RBC Hgb Hct MCV MCH MCHC RDW Plt Count Lymph % (Auto) Lymph # (Auto) Seg Neutrophils % Seg Neuts % (Manual) Lymphocytes % (Manual) Monocytes % (Manual) Nucleated RBC % Seg Neutrophils # Seg Neutrophils # Man Lymphocytes # (Manual) Monocytes # (Manual) Eosinophils # (Manual) INR D-Dimer ABG pH POC ABG pCO2 POC ABG pO2 ABG pO2 ABG HCO3 ABG O2 Saturation ABG Base Excess ABG Hemoglobin ABG Oxyhemoglobin ABG Sodium ABG Potassium ABG Chloride ABG Glucose Oxyhemoglobin Carboxyhemoglobin Sodium 151 H Potassium Chloride 112.1 H Carbon Dioxide 31 H BUN 90 H Creatinine 1.7 H Glucose 166 H POC Glucose 149 H 136 H Hemoglobin A1c Lactic Acid Calcium 7.9 L Phosphorus Magnesium Ferritin Total Bilirubin AST ALT Lactate Dehydrogenase C-Reactive Protein Albumin Triglycerides Arterial Blood Glucose Arterial Blood Ionized Calcium Urine Creatinine Coronavirus (PCR) Crossmatch 03/08/21 03/08/21 03/09/21 17:33 23:25 04:45 WBC RBC Hgb Hct MCV MCH MCHC RDW Plt Count Lymph % (Auto) Lymph # (Auto) Seg Neutrophils % Seg Neuts % (Manual) Lymphocytes % (Manual) Monocytes % (Manual) Nucleated RBC % Seg Neutrophils # Seg Neutrophils # Man Lymphocytes # (Manual) Monocytes # (Manual) Eosinophils # (Manual) INR D-Dimer ABG pH POC ABG pCO2 POC ABG pO2 ABG pO2 ABG HCO3 ABG O2 Saturation ABG Base Excess ABG Hemoglobin ABG Oxyhemoglobin ABG Sodium ABG Potassium ABG Chloride ABG Glucose Oxyhemoglobin Carboxyhemoglobin Sodium Potassium Chloride Carbon Dioxide BUN Creatinine Glucose POC Glucose 136 H 143 H 157 H Hemoglobin A1c Lactic Acid Calcium Phosphorus Magnesium Ferritin Total Bilirubin AST ALT Lactate Dehydrogenase C-Reactive Protein Albumin Triglycerides Arterial Blood Glucose Arterial Blood Ionized Calcium Urine Creatinine Coronavirus (PCR) Crossmatch 03/09/21 03/09/21 03/09/21 05:00 08:00 08:00 WBC 17.5 H RBC 2.41 L Hgb 7.0 L Hct 23.4 L MCV 97 H MCH MCHC 30 L RDW 20.1 H Plt Count Lymph % (Auto) Lymph # (Auto) Seg Neutrophils % Seg Neuts % (Manual) Lymphocytes % (Manual) Monocytes % (Manual) Nucleated RBC % Seg Neutrophils # Seg Neutrophils # Man Lymphocytes # (Manual) Monocytes # (Manual) Eosinophils # (Manual) INR D-Dimer ABG pH 7.256 L POC ABG pCO2 77.8 H POC ABG pO2 71.2 L ABG pO2 ABG HCO3 ABG O2 Saturation ABG Base Excess ABG Hemoglobin 8.2 L ABG Oxyhemoglobin 91.7 L ABG Sodium 152.4 H ABG Potassium ABG Chloride 115.0 H ABG Glucose 190 H Oxyhemoglobin Carboxyhemoglobin Sodium 157 H Potassium Chloride 115.2 H Carbon Dioxide 35 H BUN 96 H Creatinine 1.7 H Glucose 167 H POC Glucose Hemoglobin A1c Lactic Acid Calcium 7.8 L Phosphorus Magnesium Ferritin Total Bilirubin AST ALT Lactate Dehydrogenase C-Reactive Protein Albumin Triglycerides Arterial Blood Glucose 190 H Arterial Blood Ionized Calcium Urine Creatinine Coronavirus (PCR) Crossmatch 03/09/21 03/09/21 03/09/21 11:43 17:40 23:19 WBC RBC Hgb Hct MCV MCH MCHC RDW Plt Count Lymph % (Auto) Lymph # (Auto) Seg Neutrophils % Seg Neuts % (Manual) Lymphocytes % (Manual) Monocytes % (Manual) Nucleated RBC % Seg Neutrophils # Seg Neutrophils # Man Lymphocytes # (Manual) Monocytes # (Manual) Eosinophils # (Manual) INR D-Dimer ABG pH POC ABG pCO2 POC ABG pO2 ABG pO2 ABG HCO3 ABG O2 Saturation ABG Base Excess ABG Hemoglobin ABG Oxyhemoglobin ABG Sodium ABG Potassium ABG Chloride ABG Glucose Oxyhemoglobin Carboxyhemoglobin Sodium Potassium Chloride Carbon Dioxide BUN Creatinine Glucose POC Glucose 145 H 143 H 156 H Hemoglobin A1c Lactic Acid Calcium Phosphorus Magnesium Ferritin Total Bilirubin AST ALT Lactate Dehydrogenase C-Reactive Protein Albumin Triglycerides Arterial Blood Glucose Arterial Blood Ionized Calcium Urine Creatinine Coronavirus (PCR) Crossmatch 03/10/21 03/10/21 03/10/21 03:31 04:31 04:31 WBC 20.8 H RBC 2.37 L Hgb 6.9 L Hct 23.2 L MCV 98 H MCH MCHC 30 L RDW 20.0 H Plt Count Lymph % (Auto) Lymph # (Auto) Seg Neutrophils % Seg Neuts % (Manual) Lymphocytes % (Manual) Monocytes % (Manual) Nucleated RBC % Seg Neutrophils # Seg Neutrophils # Man Lymphocytes # (Manual) Monocytes # (Manual) Eosinophils # (Manual) INR D-Dimer ABG pH 7.252 L POC ABG pCO2 76.2 H POC ABG pO2 ABG pO2 ABG HCO3 ABG O2 Saturation ABG Base Excess ABG Hemoglobin 7.4 L ABG Oxyhemoglobin ABG Sodium 152.6 H ABG Potassium ABG Chloride 117.0 H ABG Glucose 182 H Oxyhemoglobin Carboxyhemoglobin 1.8 H Sodium 157 H Potassium Chloride 117.0 H Carbon Dioxide 35 H BUN 102 H Creatinine 2.0 H Glucose 165 H POC Glucose Hemoglobin A1c Lactic Acid Calcium 7.9 L Phosphorus Magnesium Ferritin Total Bilirubin AST ALT Lactate Dehydrogenase C-Reactive Protein Albumin Triglycerides Arterial Blood Glucose 182 H Arterial Blood Ionized Calcium 4.4 L Urine Creatinine Coronavirus (PCR) Crossmatch 03/10/21 05:35 WBC RBC Hgb Hct MCV MCH MCHC RDW Plt Count Lymph % (Auto) Lymph # (Auto) Seg Neutrophils % Seg Neuts % (Manual) Lymphocytes % (Manual) Monocytes % (Manual) Nucleated RBC % Seg Neutrophils # Seg Neutrophils # Man Lymphocytes # (Manual) Monocytes # (Manual) Eosinophils # (Manual) INR D-Dimer ABG pH POC ABG pCO2 POC ABG pO2 ABG pO2 ABG HCO3 ABG O2 Saturation ABG Base Excess ABG Hemoglobin ABG Oxyhemoglobin ABG Sodium ABG Potassium ABG Chloride ABG Glucose Oxyhemoglobin Carboxyhemoglobin Sodium Potassium Chloride Carbon Dioxide BUN Creatinine Glucose POC Glucose 152 H Hemoglobin A1c Lactic Acid Calcium Phosphorus Magnesium Ferritin Total Bilirubin AST ALT Lactate Dehydrogenase C-Reactive Protein Albumin Triglycerides Arterial Blood Glucose Arterial Blood Ionized Calcium Urine Creatinine Coronavirus (PCR) Crossmatch
[2021-03-10] MEDS: LANSOPRAZOLE 30 MG SOLUTAB FEEDTUBE SCH (09:03)
[2021-03-10] MEDS: NEOMY 3.5 MG/BACIT 400 UNITS/POLY B 5000 UNITS/GM OINT PACKET TP SCH ×3 (09:03→22:26)
[2021-03-10] MEDS: SENNOSIDES/DOCUSATE SODIUM 8.6/50 MG TAB PO SCH ×2 (09:03→22:21)
--- NOTE | 2021-03-10 12:23 | Progress Note ---
Assessment and Plan Acute Hypoxic respiratory failure COVID-19 PNA Severe sepsis with septic shock Acute kidney injury secondary to ATN Hyperkalemia Hypernatremia DM2 on insulin Anemia Plan: slowly rising BUN and Cr, good UOP will start sodium bicarb gtt 75 mwq in D5W for volume repletion and hypernatrem ia will repeat creatinine clearance Obtain daily weights Strict I&O's monitoring Renally dose medications Continue to monitor renal function Subjective Date of service: 03/10/21 Principal diagnosis: Acute respiratory failure Interval history: remains intubated Objective - Vital Signs Vital signs: Vital Signs - 12hr 03/10/21 03/10/21 03/10/21 00:30 01:00 01:30 Temperature Pulse Rate 103 H 102 H 103 H Respiratory 24 22 24 Rate Blood Pressure 118/52 121/59 118/55 O2 Sat by Pulse 95 95 95 Oximetry 03/10/21 03/10/21 03/10/21 02:00 02:30 03:00 Temperature Pulse Rate 103 H 103 H 104 H Respiratory 18 19 22 Rate Blood Pressure 119/59 123/58 111/57 O2 Sat by Pulse 95 95 96 Oximetry 03/10/21 03/10/21 03/10/21 03:30 04:00 04:30 Temperature 100.4 F H Pulse Rate 105 H 102 H 104 H Respiratory 22 21 25 H Rate Blood Pressure 126/57 135/55 135/55 O2 Sat by Pulse 95 96 97 Oximetry 03/10/21 03/10/21 03/10/21 05:01 05:30 06:00 Temperature Pulse Rate 105 H 102 H 102 H Respiratory 28 H 20 Rate Blood Pressure 143/117 121/52 124/60 O2 Sat by Pulse 93 95 94 Oximetry 03/10/21 03/10/21 03/10/21 06:30 07:00 07:31 Temperature 99.6 F Pulse Rate 102 H 107 H 103 H Respiratory 16 16 28 H Rate Blood Pressure 124/59 105/50 119/54 O2 Sat by Pulse 94 91 95 Oximetry 03/10/21 03/10/21 03/10/21 07:56 08:00 08:30 Temperature Pulse Rate 102 H 101 H 96 H Respiratory 28 H 28 H Rate Blood Pressure 127/57 131/64 107/50 O2 Sat by Pulse 97 97 95 Oximetry 03/10/21 03/10/21 03/10/21 09:00 09:30 10:00 Temperature Pulse Rate 96 H 99 H 96 H Respiratory 28 H 28 H 28 H Rate Blood Pressure 105/53 99/50 108/58 O2 Sat by Pulse 95 93 94 Oximetry 03/10/21 03/10/21 03/10/21 10:30 11:00 11:30 Temperature Pulse Rate 100 H 99 H 98 H Respiratory 28 H 28 H 28 H Rate Blood Pressure 81/54 107/47 107/53 O2 Sat by Pulse 94 95 94 Oximetry 03/10/21 12:06 Temperature 98.9 F Pulse Rate Respiratory Rate Blood Pressure O2 Sat by Pulse Oximetry - Lab 03/10/21 04:31 03/10/21 04:31 Most recent lab results ABG pH 7.252 (7.320-7.450) L 03/10/21 03:31 ABG pCO2 72.4 mm Hg 03/06/21 17:45 ABG pO2 78.1 mm Hg (80.0-90.0) L 03/06/21 17:45 ABG HCO3 33.7 mmol/L (20.0-26.0) H 03/06/21 17:45 ABG O2 Saturation 96.6 (0-100) 03/10/21 03:31 Calcium 7.9 mg/dL (8.4-10.2) L 03/10/21 04:31 Phosphorus 7.90 mg/dL (2.5-4.5) H 02/21/21 16:35 Magnesium 2.60 mg/dL (1.7-2.3) H 02/21/21 16:35 Urine Creatinine 65.9 mg/dL (0.1-20.0) H 03/05/21 Unknown Urine Creatinine 66.1 mg/dL (0.1-20.0) H 03/05/21 Unknown Urine Sodium 28 mmol/L 01/22/21 22:39 Medications & Allergies - Medications Allergies/Adverse Reactions: Allergies No Known Allergies Allergy (Unverified 03/12/20 13:41) Home Medications: Home Medications Medication Instructions Recorded Confirmed Last Taken Type Insulin NPH/Regular [Novolin 70/30] 18 unit SUB-Q TIDAC #1 vial 03/12/20 03/02/21 Unknown Rx Syringe-Needle,Insulin,0.5 ml 1 box MC TID #1 box 03/12/20 03/02/21 Unknown Rx [Insulin Syringe/Needle 0.5 ML] Active Medications: Generic Name Dose Route Start Last Admin Trade Name Freq PRN Reason Stop Dose Admin Acetaminophen 650 mg 01/24/21 12:58 03/10/21 06:32 Acetaminophen 325 Mg/10.15 Ml Oral Liqd Unit Dose FEEDTUBE 650 mg Q6H PRN Administration Pain, Mild (1-3) Lipase/Protease/Amylase 1 each 01/26/21 14:25 Lipase 10,500/Protease 25,000/Amylase 43,750 (Units) Dr Cap FEEDTUBE PRN PRN For Clogged Feeding Tube Dextrose 50 ml 01/27/21 07:24 Dextrose 50% In Water (25gm) 50 Ml Syringe IV Q30MIN PRN Hypoglycemia Protocol Fentanyl 50 mcg 01/22/21 22:39 02/25/21 10:25 Fentanyl 100 Mcg/2 Ml Inj IV 50 mcg Q10MIN PRN Administration ANALGESIA Heparin Sodium (Porcine) 2,000 unit 02/11/21 09:38 02/21/21 21:25 Heparin 10,000 Units/10 Ml Vial IV 2,000 unit SAGRARIO PRN Administration hemodialysis Heparin Sodium (Porcine) 5,000 unit 02/19/21 14:00 03/10/21 06:02 Heparin 5,000 Unit/1 Ml Vial SUB-Q 5,000 unit Q8HR CECE Administration Fentanyl Citrate 2,000 mcg in 100 mls @ 6.124 mls/hr 01/22/21 23:00 03/10/21 09:46 Fentanyl Drip Premix IV 3 mcg/kg/hr TITR CECE 18.371 mls/hr Administration Protocol 1 MCG/KG/HR Propofol 1,000 mg in 100 mls @ 3.674 mls/hr 01/22/21 23:45 02/21/21 08:30 Diprivan 10 Mg/Ml IV 0 mcg/kg/min TITR CECE 0 mls/hr Titration Protocol 5 MCG/KG/MIN Dexmedetomidine HCl 1,000 mcg/ 260 mls @ 6.368 mls/hr 01/30/21 20:00 03/10/21 09:46 Sodium Chloride IV 1 mcg/kg/hr TITRATE CECE 31.842 mls/hr Administration Protocol 0.2 MCG/KG/HR Sodium Chloride 100 mls @ 999 mls/hr 02/27/21 11:00 Nacl 0.9% IV SAGR[place]IO PRN Hypotension Norepinephrine 4 mg in 250 mls @ 7.5 mls/hr 03/09/21 00:18 03/10/21 08:31 Levophed Drip 4 Mg/Ns 250 Ml IV 5 mcg/min TITR CECE 18.75 mls/hr Titration Protocol 2 MCG/MIN Sodium Bicarbonate 75 meq/ 1,075 mls @ 75 mls/hr 03/10/21 13:00 Dextrose IV DIRECT CECE Lansoprazole 30 mg 02/18/21 10:00 03/10/21 09:03 Lansoprazole 30 Mg Solutab FEEDTUBE 30 mg QDAY CECE Administration Neomycin/Polymyxin/Bacitracin 1 applic 03/02/21 15:00 03/10/21 09:03 Neomy 3.5 Mg/Bacit 400 Units/Poly B 5000 Units/Gm Oint Packet TP 1 applic TID CECE Administration Senna/Docusate Sodium 1 tab 02/25/21 10:00 03/10/21 09:03 Sennosides/Docusate Sodium 8.6/50 Mg Tab PO 1 tab BID CECE Administration Simple Syrup 15 ml 01/26/21 14:25 02/21/21 21:24 Simple Syrup 15 Ml FEEDTUBE 15 ml PRN PRN Administration Hypoglycemia Simple Syrup 30 ml 01/26/21 14:25 Simple Syrup 15 Ml FEEDTUBE PRN PRN Hypoglycemia Sodium Bicarbonate 325 mg 01/26/21 14:25 Sodium Bicarbonate 325 Mg Tab FEEDTUBE PRN PRN For Clogged Feeding Tube Sodium Hypochlorite 1 applic 03/05/21 22:00 03/09/21 21:34 Sodium Hypochlorite, [place]'s 1/2 Strength (0.25%) 473 Ml Topical Soln TP 1 applicatio BID CECE Administration
[2021-03-10] MEDS ORDERED: SODIUM CHLORIDE 0.45% 1000 ML 1,000 ML with SODIUM BICARBONATE 75 MEQ IV SCH (13:00)
--- NOTE | 2021-03-10 13:17 | Progress Note ---
Assessment and Plan Assessment and plan: This is a 60-year-old male with diabetes mellitus, hypertension, hyperlipidemia, chronic renal insufficiency presents to the emergency department on 01/23 with shortness of breath, fevers chills, loss of smell and taste and body aches for the past 3 days via EMS. Per EMS patient's oxygen saturation on room air was 50% and after being placed on nonrebreather it increased 75%. Upon arrival to the emergency department patient was being bagged by EMS. In the emergency room patient was intubated due to severe hypoxia, increased work of breathing and lethargy. Patient was sedated on propofol and fentanyl. Patient presented with fever, tachycardia, tachypnea and acute hypoxic respiratory failure with PNA on CXR meeting Sepsis criteria. Lab work in the emergency department revealed hyponatremia, hypokalemia, hypochloremia, elevated CR/BUN and CXR showed bilateral pneumonia. Patient was admitted to the hospital service as a COVID-19 PUI with consults to infectious disease, nephrology and critical care medicine. 01/24/2021: Patient is intubated and sedated, patient is positive for COVID-19 in fection. ID was consulted and put on dexamethasone and remdesivir. Patient has DEISI and nephrology is following. Creatinine stable, patient is urinating. Discussed with nephrology and he is okay with remdesivir. Pulmonary critical care is following for his vent setting. PEEP of 8 and FiO2 of 85%. Patient was alert and off sedatives. 01/25/2021; patient is intubated and on mechanical ventilation. Continue with treatment of Covid. Nephrology and ID is following. Pulmonary is following for vent management 01/26: Remains on mechanical ventilation and [facility] increased his PEEP. [facility] has ordered Precedex for sedation. Possibly need to prone this p.m. No acute events reported overnight. This morning his D-dimer is greater than 10,000 and we have started him on Lovenox 120 mg daily. Nutrition has been consulted for initiation of tube feedings. Patient remains sedated on propofol 40 and fentanyl for the time my examination this morning. 01/27: Continue Lovenox, remdesivir and empiric antibiotics. Patient had a T-max of 101 overnight. The time of examination patient is on CMV 500/18/14/0.61. Kidney function slightly worsened. Sedated on fentanyl ground-level fall and Precedex. Nephrology has increased IV fluids to 100 ml/hr. Continue to trend BMP and CBC. Sedation vacation attempt by RN this AM. 01/28: Patient completed antibiotics today [facility] will paralyze patient and increase sedation. PICC line ordered for possible vasopressor therapy need. Patient's D-dimer remains greater than 10,000 and he still has hyperchloremia. Patient's kidney function has improved today. May need to prone the patient if no improvement in oxygenation is noted in the next 24 hours. The time of my examination patient is sedated with propofol, fentanyl and Precedex and is on assist control 500/18/16/0.80 hypoxic on ABG on 60% FiO2. 01/29: Patient was started on Nimbex yesterday and his ABG this morning showed respiratory acidosis with hypercapnia and his respiratory rate was increased. We will obtain a repeat ABG this afternoon. This morning patient is hypernatremic, hyperkalemic and hyperchloremic. His potassium has been corrected with the management and will obtain repeat BMP tomorrow. His kidney functions have remained stable and we will await nephrology's input. No acute events reported overnight. This morning the time my examination patient sedated with propofol, Precedex and fentanyl and paralyzed with Nimbex. He is on assist control 500/24/16 0.80. 01/30: This morning patient is hypokalemic again and was given Kayexalate. Patient has hypernatremia and hyper chloremia and his renal function is slightly worse after receiving Lasix yesterday. His D-dimer remains greater than 10,000 and he is still on a paralytic. Patient is sedated on Precedex, fentanyl, propofol. Mechanical ventilation settings seven-point //28. [facility] has decided to continue paralytics for 48 more hours and will attempt proning the patient. Increased free water flushes 300 cc every 4 hours. Patient states has restarted his antibiotics cefepime and vancomycin and recultured. 01/31/21 Hyperkalemia, Treated 02/01/21 Hyperkalemia, Treated 02/02: Patient's kidney function continues to worsen and a stat BMP this morning shows BUN/creatinine 20/6.1 and he remains hypocalcemic and hypernatremic, hypokalemic and hypochloremic. Patient received 2 g of calcium gluconate and Kayexalate and his repeat potassium was 4.3 this afternoon. He remains antibiotic therapy and steroids. Nephrology has placed the patient on bicarb drip given metabolic acidosis and has decided to hold off hemodialysis till tomorrow.The time my examination patient is sedated on fentanyl, Precedex and on assist control 500/20/12/0.70. s/p paralytic. 02/03: Today patient's ABG shows respiratory acidosis however it is improving, hypernatremia, hyperchloremia, metabolic acidosis on BMP, worsening kidney func tion BUN/creatinine 130/9.2 with hyperphosphatemia. Patient received a Vas-Cath to his right IJ for initiation of dialysis. At the time of my examination patient remains sedated on fentanyl, propofol and Precedex with vasopressor support with Levophed at 2. 02/04: At the time of examination patient was on assist control tidal volume 500, rate 40, PEEP of 12, FiO2 85%. Patient had a T-max of 100.9 and infectious disease has stopped his vancomycin given negative MRSA. This afternoon patient respiked his temperature and was pancultured again. Patient was started on hemodialysis yesterday and will receive HD again today. Patient is sedated on Precedex, propofol, fentanyl and remains on Levophed. He is on assist control tidal volume 500, rate of 30, PEEP of 12, FiO2 of 85%. Patient still has some respiratory acidosis however his hypernatremia and hyperchloremia have improved and his metabolic acidosis has resolved. Patient will receive hemodialysis today 02/05: Patient continues to have low-grade fever temp this morning time examination he was on assist control tidal volume 500, and sedated on propofol/fentanyl/Precedex and is on Levophed. Hemodialysis per nephrology. Antibiotics per ID. Patient's blood culture from 02/04 grew gram-positive cocci in clusters in 1/2 bottles and he was started on vancomycin. 02/06: Patients ABG showed respiratory acidosis and the tracings were changed however a repeat ABG showed showed acidosis.[facility] will start a bicarb drip after giving 2 amps of bicarb push. Yesterday patient blood cultures grew gram- positive cocci and he was started on vancomycin. At the time my examination patient was on assist control tidal volume 550, rate 34, PEEP 16, FiO2 90% and sedated on fentanyl, Precedex, propofol elevated pressure support with Levophed. Bilateral lower extremity Doppler ultrasounds done yesterday showed no evidence of DVT/SVT. 02/07/2021; patient is still on the vent with PEEP of 16 and FiO2 of 90%, sedated with fentanyl Precedex and propofol. Patient still requiring Levophed. Patient was sedated yesterday and was given bicarb push. Blood culture grew gram- positive cocci in clusters and he is on vancomycin, will follow identification. 02/08/2021;patient is still on the vent with PEEP of 16 and FiO2 of 90%, sedated with fentanyl Precedex and propofol. Patient still requiring Levophed. Patient was sedated yesterday and was given bicarb push. Blood culture grew gram- positive cocci in clusters and he is on vancomycin, will follow identification. Patient is currently on dialysis. Patient is anemic transfuse if hemoglobin is below 7. 02/09: This morning patient has slight hypokalemia, hypochorlemia, hyponatremia and metabolic alkalosis. [facility] will continue bicarb gtt given that the patient does not have HD access at this time. We will replete the potassium and recheck BMP in the AM. We will type and cross in anticipation of PRBC transfusion. This morning he is sedated on Ativan, fentayl, and precedex. Will obtain a triglyceride level today in hopes to resume propofol. Patient is alkalotic and BMP however we will continue with bicarb drip per [facility] given that the patient does not have any access for hemodialysis. Anticipate replacing hemodialysis catheter tomorrow or Tuesday. The time my examination he is on AC TV 550, Rate 34, PeeP 16, FiO2 .65. 02/10: A.m. labs still pending, [facility] plans to replace HD catheter tomorrow as the patient is still febrile however his fever curve is trending down, remains on a bicarb drip and on vancomycin. Today at the time my examination patient was sedated on Precedex, Ativan and fentanyl and he is on assist control tidal 11/04/1951, rate 34, PEEP 16, FiO2 65%. Overnight patient was hypotensive and received 1 dose of midodrine. 02/11: Patient is still having low-grade temperatures that we will obtain a bilateral lower upper extremity venous Doppler ultrasound given that his repeat cultures have been negative so far. Patient received a Vas-Cath today for hemodialysis. The time examination patient is on assist control tidal volume 550, rate of 34, PEEP of 16 and FiO2 of 75%. Patient was hypokalemic and anemic yesterday which were both repleted with potassium and 1 unit PRBC. 02/12: 02/12: Patient had a 12-second run of V. tach today, his potassium and magn esium were low which was repleted. Renal adjusted potassium bath. We will obtain a triglyceride level in hopes to restarting to prevent as needed. This morning at the time my examination patient was sedated on fentanyl, Ativan and Precedex and remained on a bicarb drip. He was on assist control tidal volume 550, rate 34, PEEP 16, FiO2 85%. We will obtain a occult stool given no evident source of bleeding and need for transfusion. Anemia possibly due to hemodialysis. 02/13: Patient's T-max was 100.7, remains on fentanyl, Ativan, Precedex and bicarb drip this morning at some examination on assist control tidal volume 550, rate 34, PEEP 16 and FiO2 85%. On the labs this morning is slightly hypokalemic and remains metabolic alkalotic on BMP. His occult was positive. His Lovenox and consult GI. Patient received hemodialysis today. 02/14: cont PPI, GI recommended to scope now, monitor clinically, tolerating TF, remains intubated. Hb 6.9 today - transfuse another unit. very poor prognosis. 02/15: H&H appears to be stable following 1 unit of transfusion yesterday. Continue to hold heparin and aspirin products. Continue to monitor clinically. Poor prognosis. Wean off from vent as tolerated. 02/16: Infectious disease has signed off, his Ativan drip was discontinued and to prevent drip will be started when patient needs it. T-max 100.6 yesterday afternoon. He received hemodialysis today and at the time my examination was still on mechanical ventilation assist control tidal volume 550, rate 34, PEEP 16 on 70% FiO2. Patient was sedated on fentanyl dexamethasone and Ativan. No acute events reported overnight. 02/17: This morning patient was scheduled to get 2 units PRBC however his repeat H/H after 1 unit PRBC was 7.6/22.8 and the width of the second unit PRBC. This morning patient was sedated on fentanyl, propofol, Precedex and on assist control tolerated by 50, rate 34, PEEP of 16, FiO2 35%. Wound care was consulted today for his upper lip wound. Nephrology continues to withhold dialysis. No acute events reported overnight. Dr. Adkins was unable to co ntact family for updates. 02/18: Family updated by Dr. Adkins and Dr. Reddy. Patient had a hemo dialysis today. The time my examination patient was on assist control tidal volume 550, rate 34, PEEP 16 and FiO2 35%. Overnight patient had a CT head and he was placed on 3% FiO2 and took "a long time to recover" per RN report. 02/19: Patient's D-dimer is trending up therefore he was started on prophylactic anticoagulation, no bowel movement for several days so he was started on mag citrate today. The time examination patient is sedated on Precedex 1.2, fentanyl 3, propofol 20 on assist control tidal volume 550, rate 34, PEEP 16, 80% FiO2 and on his ABG his PaO2 is 106. RT will try to wean as tolerated. Repeat COVID-19 PCR today was positive.Dr. Adkins updated the family today. 02/20: Patient received hemodialysis today. In the time my examination patient was sedated on Precedex, fentanyl, propofol and on assist control tidal line 550, rate 34, PEEP of 16 and 75% FiO2. Patient had a bowel movement yesterday. 02/21 no new concerns at this time afebrile Hospital course remains uncomplicated. 02/22. Hospital course complicated by an episode of ectopy over the p.m. Patient required Levophed for blood pressure control. Remains intubated sedated. Tolerated hemodialysis yesterday. 02/23: At the time my examination patient is on assist control tidal volume 550, rate 34, PEEP 16, FiO2 70% and is not sedated. Patient does not follow commands however his eyes open spontaneously and he does not track/focus. 02/24: Neurology consulted, EEG pending. No acute events reported overnight. Patient remains on hyperventilation totaling 550, rate 34, PEEP of 16 on 70% FiO2. Patient received hemodialysis yesterday. 02/25: EEG from 02/24 is suggestive of encephalopathy (toxic metabolic etiology cannot be excluded). This afternoon his peak pressures and and mean airway pres sure is elevated so we obtained a CXR and ABG. Results were called to Dr. Masters. Patient received 2 mg of Versed was placed back on his sedation with fentanyl and Precedex. 02/26: Patient is on pressure ventilation FiO2 70%, Pressure inspiration 25, rate 34, PEEP 10 and sedated on fentanyl at 2mcgs and Precedex at 0.2. We will obtain a cxr for evaluation. Patient seems to be much more comfortable today. 02/27: CXr unchanged, at the time of my examination patient is on pressure control ventilation FiO2 70%, pressure support 26, rate 34 n.p.o. for 10 and sedated on fentanyl at 2 and Precedex at 0.1. His latest ABG 7.3, CO2 49, PO2 111, base excess 24. Patient is to receive hemodialysis today. No acute events reported overnight. Patient still not following commands. 02/28: Continue mechanical ventilation per pulmonary recommendations. Patient currently in AC mode ventilation rate 34, FiO2 70%, PEEP 15. 02/24 EEG finding consistent with encephalopathy and/or drug effect, possibility of toxic metabolic etiology cannot be excluded, possibility of structural lesion on the left side cannot be excluded given left being slightly slower than the right. Continue hemodialysis per nephrology. Currently with sedation of fentanyl and Precedex. Pulmonary plans for trach when ventilator settings allow. 03/01: Patient remains on mechanical ventilation AC mode, FiO2 70%, PEEP of 10. Hemodialysis initiated on 02/03/2021. Continue per nephrology. Patient will need tracheostomy once ventilator settings allow. Continue supportive care with tube feedings. Aspiration precautions. Patient appears to have penile ulceration and purulence. Consult urology for further evaluation. Prognosis remains guarded. 03/02: Tentative plan to place permacath tomorrow, patient will be n.p.o. after midnight and repeat COVID-19 PCR was ordered. Urology was consulted for a possible penile fistula. Patient received hemodialysis today. Today at the time of examination patient was on pressure control ventilation with a PEEP of 10 and FiO2 of 60 sedated on fentanyl and Precedex. 03/03: Patient noted to be anemic and ordered 1 unit of PRBC to be transfused, [facility] thinks patient has suffered from oxygen toxicity from prolonged time on high levels of oxygen (greater than 60%) for several weeks. The time my examination patient was on volume control ventilation and he remains off sedation. 03/04: Patient H/H today and 7.04/30:24 unit PRBC yesterday. Patient remains on pressure control ventilation with a pressure support of 26, FiO2 55, rate of 24 and PEEP of 10. His sedation was restarted yesterday for increase WOB and tachypnea. Patient is sedated on fentanyl and dexamethasone. We will continue current management and possibly obtain a CT head on Tuesday if no improvement in mental status. 03/05: Infectious disease has stated that the patient is noninfectious as per PermCath procedure. However patient is renal function is improving and nephrology has opted to place PermCath on Tuesday if HD is still indicated. Patient was given mag citrate today for constipation and sodium bicarbonate push. Today surgery was consulted for possible debridement of sacral wound. 03/06: Patient is sedated on fentanyl and dexamethasone on pressure control ventilation FiO2 55%, pressure support 26, rate 40 and PEEP of 10 at the time my examination. And he was switched to assist control by [facility]. Patient continues to have low-grade fevers which may be multifactorial. Given that creatinine clearance was 26 and urine output is improving nephrology has decided to hold HD for now. General surgery has debrided the sacaral wound today. Will attempt to obtain midline or PIV in order to remove CVL BILLIE. 03/07: Alert, examination patient was sedated on fentanyl and dexamethasone on assist control tidal volume 550, rate 26, PEEP of 14 and 55% FiO2. Patient renal function has remained stable and we will monitor him off of hemodialysis. RN was unable to obtain a midline or PIV. Per [facility] CVL remain and possible small clot in the left IJ visualized with ultrasound probe. Will monitor fever curve. 03/08: Overnight FiO2 requirements increased, UOP remains good, decrease in Cr, increase in Na. Spoke to bedside RN about FWF. [facility] changed patient to PRVC. 03/09: Hypotensive. Received a bolus of fluid awaiting reevaluation may need to go back on pressors are still with intermittent low grade fever. Continues on Demadex. Not on dialysis at this time. [employer] has asked that HD access be discontinued. Nurse working on that. 03/10: Transfusion ordered palpable tenderness. We will continue to monitor closely. Pulmonary following for vent management and hypercapnia. Patient may need reevaluation by GI if anemia persist. Recheck labs in a.m. prognosis remains guarded to poor Sepsis COVID-19 pneumonia Coag-neg Staph bacteremia Acute hypoxic and hypercapnic respiratory failure Acute kidney injury, HD initiated 02/03 Hypernatremia Anemia Diabetes mellitus Hypertension Hyperlipidemia Chronic renal insufficiency Elevated D-dimer Penile ulceration Sacral wound -CCM, nephrology, infectious disease, GI , vascular surgery, surgery, urology, neurology consulted, appreciate recommendations -s/p Antibiotic therapy, remdesivir, Steroid therapy -COVID-19 PCR positive, Pneumonia on CXR -Mechanical ventilation, wean as tolerated -VAP bundle -HD per nephrology, on hold given improvement 03/06 -S/p 5 units PRBC during stay -Trend BMP, CBC, COVID-19 inflammatory markers -Bilateral lower extremity and upper extremity Doppler ultrasound negative for DVT/SVT -SSI and Long-acting insulin -Accu-Cheks every 6 while on tube feedings -Hold home antihypertensive regimen and resume when appropriate -S/p vasopressor support -Blood pressure monitoring per protocol -S/p NaHCO3 gtt -02/17 CT head showed no acute intracranial abnormality, paranasal sinus disease -Bowel regimen, now on hold -02/24 EEG finding consistent with encephalopathy and/or drug effect, possibility of toxic metabolic etiology cannot be excluded, possibility of structural lesion on the left side cannot be excluded given left being slightly slower than the right. -Neosporin twice daily to penile shaft ulcer -01/23, 02/18, 03/02 COVID-19 PCR positive -Permcath placement pending -03/06 s/p bedside debridement with surgery -Wound care per nursing DVT/GI prophylaxis: SCDs to bilateral lower extremities while in bed, PPI, heparin subq Dispo: ICU The high probability of a clinically significant, sudden or life threatening de terioration of the [multi] system(s) required my full and direct attention, intervention and personal management. The aggregate critical care time was [35] minutes. This time is in addition to time spent performing reported procedures but includes the following: [x] Data Review and interpretation [x] Patient assessment and monitoring of vital signs [x] Documentation [x] Medication orders and management History Interval history: Patient seen and examined remains on full ventilatory support. Over the past few days has shown some recurrence hypotensive episodes. Noted to have anemia again. Hospitalist Physical - Physical exam Narrative exam: General appearance: Present: no acute distress, obese, other (on mechanical ventilation, sedated) - EENT Eyes: Present: PERRL ENT: poor dentition - Neck Neck: Absent: masses or JVD, cervical LAD - Respiratory Respiratory effort: normal Respiratory: bilateral: diminished - Cardiovascular Rhythm: regular Heart Sounds: Present: S1 & S2. Absent: systolic murmur, diastolic murmur - Extremities Extremities: no ischemia, pulses intact, pulses symmetrical, normal temperature, normal color Extremity abnormal: edema Peripheral Pulses: within normal limits - Abdominal General gastrointestinal: soft, non-tender, non-distended, normal bowel sounds - Integumentary Integumentary: Present: warm, dry - Psychiatric Psychiatric: other (sedated) - Neurologic Neurologic: other (sedated) - Allied Health Allied health notes reviewed: nursing, RT - Constitutional Vitals: Temp Pulse Resp BP Pulse Ox 98.9 F 98 H 28 H 114/54 97 03/10/21 12:06 03/10/21 12:00 03/10/21 12:00 03/10/21 12:00 03/10/21 12:00 General appearance: Present: no acute distress, obese, other (on mechanical ventilation, sedated) HEART Score - HEART Score Risk factors: 1-2 risk factors Troponin: < normal limit - Critical Actions Critical Actions: 0-3 pts:0.9-1.7%risk of adverse cardiac event.Candidate for di power Results - Labs CBC & Chem 7: 03/10/21 04:31 03/10/21 04:31 Labs: Laboratory Last Values WBC 20.8 K/mm3 (4.5-11.0) H 03/10/21 04:31 RBC 2.37 M/mm3 (3.65-5.03) L 03/10/21 04:31 Hgb 6.9 gm/dl (11.8-15.2) L 03/10/21 04:31 Hct 23.2 % (35.5-45.6) L 03/10/21 04:31 MCV 98 fl (84-94) H 03/10/21 04:31 MCH 29 pg (28-32) 03/10/21 04:31 MCHC 30 % (32-34) L 03/10/21 04:31 RDW 20.0 % (13.2-15.2) H 03/10/21 04:31 Plt Count 309 K/mm3 (140-440) 03/10/21 04:31 Lymph % (Auto) 7.3 % (13.4-35.0) L 03/07/21 08:01 Mcdonough % (Auto) 6.9 % (0.0-7.3) 03/07/21 08:01 Eos % (Auto) 2.2 % (0.0-4.3) 03/07/21 08:01 Baso % (Auto) 0.8 % (0.0-1.8) 03/07/21 08:01 Lymph # (Auto) 0.9 K/mm3 (1.2-5.4) L 03/07/21 08:01 Mcdonough # (Auto) 0.8 K/mm3 (0.0-0.8) 03/07/21 08:01 Eos # (Auto) 0.3 K/mm3 (0.0-0.4) 03/07/21 08:01 Baso # (Auto) 0.1 K/mm3 (0.0-0.1) 03/07/21 08:01 Add Manual Diff Complete 02/24/21 04:25 Total Counted 100 02/24/21 04:25 Seg Neutrophils % 82.8 % (40.0-70.0) H 03/07/21 08:01 Seg Neuts % (Manual) 82.0 % (40.0-70.0) H 02/24/21 04:25 Band Neutrophils % 2.0 % 02/16/21 Unknown Lymphocytes % (Manual) 3.0 % (13.4-35.0) L 02/24/21 04:25 Reactive Lymphs % (Man) 1.0 % 01/27/21 05:29 Monocytes % (Manual) 11.0 % (0.0-7.3) H 02/24/21 04:25 Eosinophils % (Manual) 1.0 % (0.0-4.3) 02/24/21 04:25 Basophils % (Manual) 1.0 % (0.0-1.8) 02/24/21 04:25 Metamyelocytes % 2.0 % 02/24/21 04:25 Nucleated RBC % Not Reportable 02/24/21 04:25 Seg Neutrophils # 9.8 K/mm3 (1.8-7.7) H 03/07/21 08:01 Seg Neutrophils # Man 9.4 K/mm3 (1.8-7.7) H 02/24/21 04:25 Band Neutrophils # 0.0 K/mm3 02/24/21 04:25 Lymphocytes # (Manual) 0.3 K/mm3 (1.2-5.4) L 02/24/21 04:25 Abs React Lymphs (Man) 0.0 K/mm3 02/24/21 04:25 Monocytes # (Manual) 1.3 K/mm3 (0.0-0.8) H 02/24/21 04:25 Eosinophils # (Manual) 0.1 K/mm3 (0.0-0.4) 02/24/21 04:25 Basophils # (Manual) 0.1 K/mm3 (0.0-0.1) 02/24/21 04:25 Metamyelocytes # 0.2 K/mm3 02/24/21 04:25 Myelocytes # 0.0 K/mm3 02/24/21 04:25 Promyelocytes # 0.0 K/mm3 02/24/21 04:25 Blast Cells # 0.0 K/mm3 02/24/21 04:25 WBC Morphology Not Reportable 02/24/21 04:25 Hypersegmented Neuts Not Reportable 02/24/21 04:25 Hyposegmented Neuts Not Reportable 02/24/21 04:25 Hypogranular Neuts Not Reportable 02/24/21 04:25 Smudge Cells Not Reportable 02/24/21 04:25 Toxic Granulation Not Reportable 02/24/21 04:25 Toxic Vacuolation Not Reportable 02/24/21 04:25 Dohle Bodies Not Reportable 02/24/21 04:25 Pelger-Huet Anomaly Not Reportable 02/24/21 04:25 Fátima Rods Not Reportable 02/24/21 04:25 Platelet Estimate Consistent w auto 02/24/21 04:25 Clumped Platelets Not Reportable 02/24/21 04:25 Plt Clumps, EDTA Not Reportable 02/24/21 04:25 Large Platelets Not Reportable 02/24/21 04:25 Giant Platelets Not Reportable 02/24/21 04:25 Platelet Satelliting Not Reportable 02/24/21 04:25 Plt Morphology Comment Not Reportable 02/24/21 04:25 RBC Morphology Not Reportable 02/24/21 04:25 Dimorphic RBCs Not Reportable 02/24/21 04:25 Polychromasia Few 02/24/21 04:25 Hypochromasia Not Reportable 02/24/21 04:25 Poikilocytosis Not Reportable 02/24/21 04:25 Anisocytosis 1+ 02/24/21 04:25 Microcytosis Not Reportable 02/24/21 04:25 Macrocytosis Not Reportable 02/24/21 04:25 Spherocytes Not Reportable 02/24/21 04:25 Pappenheimer Bodies Not Reportable 02/24/21 04:25 Sickle Cells Not Reportable 02/24/21 04:25 Target Cells Not Reportable 02/24/21 04:25 Tear Drop Cells Not Reportable 02/24/21 04:25 Ovalocytes Not Reportable 02/24/21 04:25 Helmet Cells Not Reportable 02/24/21 04:25 Potter-Candler-Mcafee Bodies Not Reportable 02/24/21 04:25 Mckinney Rings Not Reportable 02/24/21 04:25 Ludmila Cells Not Reportable 02/24/21 04:25 Bite Cells Not Reportable 02/24/21 04:25 Crenated Cell Not Reportable 02/24/21 04:25 Elliptocytes Not Reportable 02/24/21 04:25 Acanthocytes (Spur) Not Reportable 02/24/21 04:25 Rouleaux Not Reportable 02/24/21 04:25 Hemoglobin C Crystals Not Reportable 02/24/21 04:25 Schistocytes Not Reportable 02/24/21 04:25 Malaria parasites Not Reportable 02/24/21 04:25 Aquiles Bodies Not Reportable 02/24/21 04:25 Hem Pathologist Commnt No 02/24/21 04:25 PT 14.6 Sec. (12.2-14.9) 03/03/21 Unknown INR 1.15 (0.87-1.13) H 03/03/21 Unknown D-Dimer 6536.84 ng/mlDDU (0-234) H 02/25/21 09:03 ABG pH 7.252 (7.320-7.450) L 03/10/21 03:31 POC ABG pCO2 76.2 mmHg (32.0-48.0) H 03/10/21 03:31 ABG pCO2 72.4 mm Hg 03/06/21 17:45 POC ABG pO2 89.0 mmHg (83-108) 03/10/21 03:31 ABG pO2 78.1 mm Hg (80.0-90.0) L 03/06/21 17:45 POC ABG HCO3 32.8 03/10/21 03:31 ABG HCO3 33.7 mmol/L (20.0-26.0) H 03/06/21 17:45 ABG O2 Saturation 96.6 (0-100) 03/10/21 03:31 ABG O2 Content 13.5 (0.0-44) 03/06/21 17:45 POC ABG Base Excess 4.8 03/10/21 03:31 ABG Base Excess 5.5 mmol/L (-2.0-3.0) H 03/06/21 17:45 ABG Hemoglobin 7.4 (12.0-17.5) L 03/10/21 03:31 ABG Oxyhemoglobin 94.7 (94-98) 03/10/21 03:31 ABG Carboxyhemoglobin 2.3 % (0.0-5.0) 03/06/21 17:45 ABG Methemoglobin 0.2 (0.0-1.5) 03/10/21 03:31 ABG Sodium 152.6 mmol/L (136.0-145.0) H 03/10/21 03:31 ABG Potassium 3.9 mmol/L (3.40-4.50) 03/10/21 03:31 ABG Chloride 117.0 mmol/L (98-107) H 03/10/21 03:31 ABG Glucose 182 mg/dL (65-95) H 03/10/21 03:31 Oxyhemoglobin 92.3 % (95.0-99.0) L 03/06/21 17:45 Carboxyhemoglobin 1.8 (0.5-1.5) H 03/10/21 03:31 FiO2 55 % 03/06/21 17:45 FiO2 % 80.0 03/10/21 03:31 Sodium 157 mmol/L (137-145) H 03/10/21 04:31 Potassium 4.1 mmol/L (3.6-5.0) 03/10/21 04:31 Chloride 117.0 mmol/L (98-107) H 03/10/21 04:31 Carbon Dioxide 35 mmol/L (22-30) H 03/10/21 04:31 Anion Gap 9 mmol/L 03/10/21 04:31 BUN 102 mg/dL (9-20) H 03/10/21 04:31 Creatinine 2.0 mg/dL (0.8-1.3) H 03/10/21 04:31 Estimated GFR 41 ml/min 03/10/21 04:31 BUN/Creatinine Ratio 51 % 03/10/21 04:31 Glucose 165 mg/dL (75-100) H 03/10/21 04:31 POC Glucose 149 mg/dL (70-105) H 03/10/21 11:40 Hemoglobin A1c 6.3 % (4-6) H 02/02/21 16:00 Lactic Acid 1.90 mmol/L (0.7-2.0) 01/24/21 14:38 Calcium 7.9 mg/dL (8.4-10.2) L 03/10/21 04:31 Phosphorus 7.90 mg/dL (2.5-4.5) H 02/21/21 16:35 Magnesium 2.60 mg/dL (1.7-2.3) H 02/21/21 16:35 Ferritin 867.8 ng/mL (30.0-300.0) H 02/26/21 05:48 Total Bilirubin 1.50 mg/dL (0.1-1.2) H 01/26/21 05:47 AST 37 units/L (5-40) 01/26/21 05:47 ALT 29 units/L (7-56) 01/26/21 05:47 Alkaline Phosphatase 70 units/L (35-129) 01/26/21 05:47 Lactate Dehydrogenase 345 units/L (91-180) H 02/19/21 05:45 C-Reactive Protein 5.90 mg/dL (0.00-1.30) H 02/26/21 05:48 Total Protein 7.2 g/dL (6.3-8.2) 01/26/21 05:47 Albumin 2.2 g/dL (3.9-5) L 01/26/21 05:47 Albumin/Globulin Ratio 0.4 % 01/26/21 05:47 Triglycerides 195 mg/dL (2-149) H 02/19/21 05:45 Procalcitonin 18.94 ng/mL (<0.15) 02/16/21 17:09 Arterial Blood Glucose 182 mg/dL (65-95) H 03/10/21 03:31 Arterial Blood Ionized Calcium 4.4 mg/dL (4.6-5.3) L 03/10/21 03:31 Urine Color Nehal (Yellow) 01/22/21 22:39 Urine Turbidity Cloudy (Clear) 01/22/21 22:39 Urine pH 5.0 (5.0-7.0) 01/22/21 22:39 Ur Specific [place] 1.017 (1.003-1.030) 01/22/21 22:39 Urine Protein 100 mg/dl mg/dL (Negative) 01/22/21 22:39 Urine Glucose (UA) Neg mg/dL (Negative) 01/22/21 22:39 Urine Ketones Neg mg/dL (Negative) 01/22/21 22:39 Urine Blood Mod (Negative) 01/22/21 22:39 Urine Nitrite Neg (Negative) 01/22/21 22:39 Urine Bilirubin Neg (Negative) 01/22/21 22:39 Urine Urobilinogen 2.0 mg/dL (<2.0) 01/22/21 22:39 Ur Leukocyte Esterase Mod (Negative) 01/22/21 22:39 Urine WBC (Auto) < 1.0 /HPF (0.0-6.0) 01/22/21 22:39 Urine RBC (Auto) < 1.0 /HPF (0.0-6.0) 01/22/21 22:39 U Epithel Cells (Auto) < 1.0 /HPF (0-13.0) 01/22/21 22:39 Urine Osmolality 416 Mosm/kg 01/30/21 12:15 Urine Total Volume 1800 ml 03/05/21 Unknown Urine Total Volume 1800 ml 03/05/21 Unknown Urine Creatinine 65.9 mg/dL (0.1-20.0) H 03/05/21 Unknown Urine Creatinine 66.1 mg/dL (0.1-20.0) H 03/05/21 Unknown Ur Creatinine 24 Hour 1.2 (0.8-2.8) 03/05/21 Unknown Height (in) 68.0 inches 03/05/21 Unknown Weight (lb) 283.3 lbs 03/05/21 Unknown Creatinine Clearance 26 03/05/21 Unknown Urine Sodium 28 mmol/L 01/22/21 22:39 Nasal Screen MRSA (PCR) Negative (Negative) 02/02/21 13:20 Random Vancomycin 13.7 ug/mL (0-40.0) 02/07/21 10:40 Coronavirus (PCR) Positive (Negative) A 03/02/21 08:35 Hepatitis A IgM Ab Non-reactive (NonReactive) 02/03/21 Unknown Hep Bs Antigen Non-reactive (Negative) 02/03/21 Unknown Hep B Core IgM Ab Non-reactive (NonReactive) 02/03/21 Unknown Hepatitis C Antibody Non-reactive (NonReactive) 02/03/21 Unknown Blood Type B POSITIVE 03/03/21 Unknown Antibody Screen Negative 03/03/21 Unknown Crossmatch See Detail 03/03/21 Unknown Microbiology: Microbiology 03/10/21 Unknown Peripheral/Venous Blood Culture - Preliminary Culture in Progress 03/10/21 Unknown Peripheral/Venous Blood Culture - Preliminary Culture in Progress Black/IV: Voiding Method Indwelling Catheter Active Medications - Current Medications Current Medications: Generic Name Dose Route Start Last Admin Trade Name Freq PRN Reason Stop Dose Admin Acetaminophen 650 mg 01/24/21 12:58 03/10/21 06:32 Acetaminophen 325 Mg/10.15 Ml Oral Liqd Unit Dose FEEDTUBE 650 mg Q6H PRN Administration Pain, Mild (1-3) Lipase/Protease/Amylase 1 each 01/26/21 14:25 Lipase 10,500/Protease 25,000/Amylase 43,750 (Units) Dr Claudio FEEDTUBE PRN PRN For Clogged Feeding Tube Dextrose 50 ml 01/27/21 07:24 Dextrose 50% In Water (25gm) 50 Ml Syringe IV Q30MIN PRN Hypoglycemia Protocol Fentanyl 50 mcg 01/22/21 22:39 02/25/21 10:25 Fentanyl 100 Mcg/2 Ml Inj IV 50 mcg Q10MIN PRN Administration ANALGESIA Heparin Sodium (Porcine) 2,000 unit 02/11/21 09:38 02/21/21 21:25 Heparin 10,000 Units/10 Ml Vial IV 2,000 unit SAGRARIO PRN Administration hemodialysis Heparin Sodium (Porcine) 5,000 unit 02/19/21 14:00 03/10/21 06:02 Heparin 5,000 Unit/1 Ml Vial SUB-Q 5,000 unit Q8HR CECE Administration Fentanyl Citrate 2,000 mcg in 100 mls @ 6.124 mls/hr 01/22/21 23:00 03/10/21 09:46 Fentanyl Drip Premix IV 3 mcg/kg/hr TITR CECE 18.371 mls/hr Administration Protocol 1 MCG/KG/HR Propofol 1,000 mg in 100 mls @ 3.674 mls/hr 01/22/21 23:45 02/21/21 08:30 Diprivan 10 Mg/Ml IV 0 mcg/kg/min TITR CECE 0 mls/hr Titration Protocol 5 MCG/KG/MIN Dexmedetomidine HCl 1,000 mcg/ 260 mls @ 6.368 mls/hr 01/30/21 20:00 03/10/21 09:46 Sodium Chloride IV 1 mcg/kg/hr TITRATE CECE 31.842 mls/hr Administration Protocol 0.2 MCG/KG/HR Sodium Chloride 100 mls @ 999 mls/hr 02/27/21 11:00 Nacl 0.9% IV SAGRARIO PRN Hypotension Norepinephrine 4 mg in 250 mls @ 7.5 mls/hr 03/09/21 00:18 03/10/21 08:31 Levophed Drip 4 Mg/Ns 250 Ml IV 5 mcg/min TITR CECE 18.75 mls/hr Titration Protocol 2 MCG/MIN Sodium Bicarbonate 75 meq/ 1,075 mls @ 75 mls/hr 03/10/21 13:00 Dextrose IV DIRECT CECE Lansoprazole 30 mg 02/18/21 10:00 03/10/21 09:03 Lansoprazole 30 Mg Solutab FEEDTUBE 30 mg QDAY CECE Administration Neomycin/Polymyxin/Bacitracin 1 applic 03/02/21 15:00 03/10/21 09:03 Neomy 3.5 Mg/Bacit 400 Units/Poly B 5000 Units/Gm Oint Packet TP 1 applic TID CECE Administration Senna/Docusate Sodium 1 tab 02/25/21 10:00 03/10/21 09:03 Sennosides/Docusate Sodium 8.6/50 Mg Tab PO 1 tab BID CECE Administration Simple Syrup 15 ml 01/26/21 14:25 02/21/21 21:24 Simple Syrup 15 Ml FEEDTUBE 15 ml PRN PRN Administration Hypoglycemia Simple Syrup 30 ml 01/26/21 14:25 Simple Syrup 15 Ml FEEDTUBE PRN PRN Hypoglycemia Sodium Bicarbonate 325 mg 01/26/21 14:25 Sodium Bicarbonate 325 Mg Tab FEEDTUBE PRN PRN For Clogged Feeding Tube Sodium Hypochlorite 1 applic 03/05/21 22:00 03/09/21 21:34 Sodium Hypochlorite, [place]'s 1/2 Strength (0.25%) 473 Ml Topical Soln TP 1 applicatio BID CECE Administration Nutrition/Malnutrition Assess - Dietary Evaluation Nutrition/Malnutrition Findings: Nutrition Notes Start: 01/26/21 13:59 Freq: Status: Active Protocol: Document 03/09/21 14:24 [facility] (Rec: 03/09/21 14:36 PRALL [id number]) Nutrition Notes Initial or Follow up Reassessment Current Diagnosis Acute Kidney Injury,Diabetes, Sepsis,Respiratory Failure Other Pertinent Diagnosis COVID-19 (+) Current Diet TF - Nepro at 46ml/hr Labs/Tests Na 157 BUN 96 Cr 1.7 BG 167 Pertinent Medications Levophed gtt Height 5 ft 8 in Weight 129.8 kg [place] Body Weight (kg) 70.00 BMI 43.4 Weight change and time frame Wt change noted. Weight Status Morbidly Obese Subjective/Other Information Spoke with RN via phone. HD has been d/c'ed. Pt remains on vent support. Pt tolerating TF at goal rate; receives 200ml water flush q4h . Pt with poor prognosis. Percent of energy/protein needs met: 100% energy 51% pro Burn Absent Trauma Absent #2 Nutrition Diagnosis Increased nutrient needs ( specify in comment below) Diagnosis Progress(for reassessment Continues documentation) #1 Nutrition Diagnosis Inadequate oral intake Diagnosis Progress(for reassessment Continues documentation) Is patient on ventilator? Yes Is Patient Ambulatory and/or Out of Bed No REE-([place]-confined to bed) 2491.392 Kcal/Kg value to use for calculation 14 Approximate Energy Requirements Using 1817 kcal/Kg Calculation Used for Recommendations Kcal/kg Additional Notes Pro needs up to 2.5g/kg IBW: up to 175g/day Fluid needs per MD. Nutrition Intervention Nutrition Support: Continue Nepro at 46 ml/hr with a free water flush of 200 ml q4h. Kcal 1,987 Protein (gm) 89 Fluid (mL) 803 Goal #1 TF tolerance Goal #2 TF to meet nutrient needs as best possible Follow-Up By: 03/16/21 Additional Comments F/U: stable TF, vent status, renal function, Na lab/water flushes
[2021-03-10] MEDS ORDERED: SODIUM CHLORIDE 0.9% 500 ML 500 ML IV SCH (15:22)
[2021-03-10] MEDS: SODIUM BICARBONATE 75 MEQ in DEXTROSE 5% IN WATER 1,000 ML IV SCH (16:15)
[2021-03-10] MEDS: SODIUM HYPOCHLORITE, DAKIN'S 1/2 STRENGTH (0.25%) 473 ML TOPICAL SOLN TP SCH ×2 (16:16→22:24)
--- NOTE | 2021-03-10 16:59 | XRay Report ---
CHEST - 1 VIEW INDICATION: respiratory failure COMPARISON: 03/08/2021 FINDINGS: Support devices: Stable support device positioning. Heart: Stable cardiomediastinal silhouette. Lungs/pleura: Stable bilateral lung opacities or congestive changes and small right pleural effusion . Additional findings: None. IMPRESSION: Unchanged exam. Signer Name: Curt Ayala Jr, MD Signed: 03/10/2021 4:54 PM Workstation Name: [id number]
[2021-03-11] MEDS: fentaNYL DRIP Premix 2,000 MCG/100 ML BAG IV SCH ×4 (03:46→21:35)
[2021-03-11] MEDS: SODIUM BICARBONATE 75 MEQ in DEXTROSE 5% IN WATER 1,000 ML IV SCH (04:38)
[2021-03-11] MEDS: ACETAMINOPHEN 325 MG/10.15 ML ORAL LIQD UNIT DOSE FEEDTUBE PRN (04:38)
[2021-03-11] MEDS: HEPARIN 5,000 UNIT/1 ML VIAL SUB-Q SCH ×3 (05:37→21:23)
[2021-03-11 05:56] LABS: Hematocrit 23.9 % (35.5-45.6); Hemoglobin 7.2 gm/dl (11.8-15.2); Mean Corpuscular HGB Conc 30 % (32-34); Mean Corpuscular Volume 98 fl (84-94); Red Blood Count 2.44 M/mm3 (3.65-5.03); Red Cell Distribution Width 19.5 % (13.2-15.2)
[2021-03-11 05:59] LABS: Platelet Count 283 K/mm3 (140-440)
[2021-03-11 06:17] LABS: Calcium 7.5 mg/dL (8.4-10.2)
[2021-03-11] MEDS: NEOMY 3.5 MG/BACIT 400 UNITS/POLY B 5000 UNITS/GM OINT PACKET TP SCH ×3 (08:15→19:59)
[2021-03-11] MEDS: dexmedeTOMIDine 1,000 MCG in SODIUM CHLORIDE 0.9% 250ML 250 ML IV SCH ×2 (08:27→16:07)
[2021-03-11] MEDS: LANSOPRAZOLE 30 MG SOLUTAB FEEDTUBE SCH (09:44)
[2021-03-11] MEDS: SENNOSIDES/DOCUSATE SODIUM 8.6/50 MG TAB PO SCH ×2 (09:44→21:23)
[2021-03-11] MEDS: SODIUM HYPOCHLORITE, DAKIN'S 1/2 STRENGTH (0.25%) 473 ML TOPICAL SOLN TP SCH ×2 (10:48→21:21)
--- NOTE | 2021-03-11 11:00 | Progress Note ---
Assessment and Plan - Patient Problems (1) Acute respiratory failure due to COVID-19 Current Visit: Yes Status: Acute (2) Acute respiratory failure with hypoxia Current Visit: Yes Status: Acute (3) Pneumonia Current Visit: Yes Status: Acute Qualifiers: Pneumonia type: due to unspecified organism Laterality: bilateral Lung location: unspecified part of lung Qualified Code(s): J18.9 - Pneumonia, unspecified organism (4) Exposure to COVID-19 virus Current Visit: Yes Status: Acute (5) Encounter for hemodialysis for acute renal failure Current Visit: Yes Status: Resolved (6) Fever Current Visit: Yes Status: Acute (7) Sacral decubitus ulcer Current Visit: Yes Status: Acute (8) Hypernatremia Current Visit: Yes Status: Acute (9) Leukocytosis (leucocytosis) Current Visit: Yes Status: Acute Subjective Principal diagnosis: Acute respiratory failure Interval history: still febrile on PRVC abg noted Objective Vital Signs - 12hr 03/10/21 03/10/21 03/11/21 23:00 23:30 00:00 Temperature 99.8 F H Pulse Rate 100 H 99 H 99 H Respiratory 25 H 28 H 28 H Rate Blood Pressure 98/60 104/61 113/58 O2 Sat by Pulse 96 97 93 Oximetry 03/11/21 03/11/21 03/11/21 00:07 00:29 00:30 Temperature 99.2 F Pulse Rate 101 H 101 H 101 H Respiratory 25 H 22 Rate Blood Pressure 113/58 110/55 98/55 O2 Sat by Pulse 97 94 94 Oximetry 03/11/21 03/11/21 03/11/21 00:44 01:00 01:14 Temperature 99.0 F 99.0 F Pulse Rate 101 H 99 H 100 H Respiratory 28 H 25 H 23 Rate Blood Pressure 95/59 110/55 88/55 O2 Sat by Pulse 94 95 94 Oximetry 03/11/21 03/11/21 03/11/21 01:30 01:44 02:00 Temperature 99.0 F Pulse Rate 100 H 100 H 101 H Respiratory 25 H 28 H 28 H Rate Blood Pressure 75/57 95/59 96/54 O2 Sat by Pulse 95 94 95 Oximetry 03/11/21 03/11/21 03/11/21 02:14 02:30 02:44 Temperature 99.2 F 99.2 F Pulse Rate 101 H 102 H 104 H Respiratory 26 H 28 H 22 Rate Blood Pressure 87/57 88/59 103/61 O2 Sat by Pulse 91 93 92 Oximetry 03/11/21 03/11/21 03/11/21 03:00 03:14 03:30 Temperature 99.2 F Pulse Rate 102 H 101 H 101 H Respiratory 22 24 26 H Rate Blood Pressure 109/67 104/61 113/56 O2 Sat by Pulse 93 92 94 Oximetry 03/11/21 03/11/21 03/11/21 03:44 04:00 04:30 Temperature 99.2 F 101.7 F H Pulse Rate 100 H 101 H 101 H Respiratory 26 H 25 H 20 Rate Blood Pressure 114/60 111/62 115/56 O2 Sat by Pulse 95 94 94 Oximetry 03/11/21 03/11/21 03/11/21 05:00 05:30 06:00 Temperature Pulse Rate 100 H 104 H 112 H Respiratory 28 H 25 H 25 H Rate Blood Pressure 114/58 105/57 102/53 O2 Sat by Pulse 95 94 92 Oximetry 03/11/21 03/11/21 07:00 08:05 Temperature 99.3 F Pulse Rate 112 H Respiratory Rate Blood Pressure 102/53 O2 Sat by Pulse 92 Oximetry Constitutional: other (sedated, on vent) Eyes: non-icteric ENT: other (orally intubated, critically ill) Neck: supple Effort: mildly labored (tachypneic) Ascultation: Bilateral: clear, other (coarse BS bilaterally) Percussion: Bilateral: not dull Cardiovascular: regular rate and rhythm (no mrg) Gastrointestinal: normoactive bowel sounds Integumentary: normal Extremities: no cyanosis, pink and warm, anasarca Neurologic: unable to assess Psychiatric: other (unable to assess) CBC and BMP: 03/11/21 04:40 03/11/21 04:40 ABG, PT/INR, D-dimer: ABG ABG pH 7.227 (7.320-7.450) L 03/11/21 03:20 POC ABG pCO2 78.7 mmHg (32.0-48.0) H 03/11/21 03:20 ABG pCO2 72.4 mm Hg 03/06/21 17:45 POC ABG pO2 82.1 mmHg (83-108) L 03/11/21 03:20 ABG pO2 78.1 mm Hg (80.0-90.0) L 03/06/21 17:45 POC ABG HCO3 32.0 03/11/21 03:20 ABG O2 Saturation 95.2 (0-100) 03/11/21 03:20 PT/INR, D-dimer PT 14.6 Sec. (12.2-14.9) 03/03/21 Unknown INR 1.15 (0.87-1.13) H 03/03/21 Unknown D-Dimer 6536.84 ng/mlDDU (0-234) H 02/25/21 09:03 Abnormal lab findings: Abnormal Labs 01/22/21 01/22/21 01/22/21 22:39 22:57 22:57 WBC RBC Hgb Hct MCV MCH MCHC RDW Plt Count Lymph % (Auto) 6.6 L Lymph # (Auto) 0.5 L Seg Neutrophils % 87.6 H Seg Neuts % (Manual) Lymphocytes % (Manual) Monocytes % (Manual) Nucleated RBC % Seg Neutrophils # Seg Neutrophils # Man Lymphocytes # (Manual) Monocytes # (Manual) Eosinophils # (Manual) INR D-Dimer ABG pH POC ABG pCO2 POC ABG pO2 ABG pO2 ABG HCO3 ABG O2 Saturation ABG Base Excess ABG Hemoglobin ABG Oxyhemoglobin ABG Sodium ABG Potassium ABG Chloride ABG Glucose Oxyhemoglobin Carboxyhemoglobin Sodium 129 L Potassium 3.4 L Chloride 90.4 L Carbon Dioxide BUN 34 H Creatinine 1.5 H Glucose 146 H POC Glucose Hemoglobin A1c Lactic Acid Calcium 7.8 L Phosphorus Magnesium Ferritin Total Bilirubin AST 75 H ALT 57 H Lactate Dehydrogenase C-Reactive Protein Albumin 2.9 L Triglycerides Arterial Blood Glucose Arterial Blood Ionized Calcium Urine Creatinine 301.2 H Coronavirus (PCR) Crossmatch 01/22/21 01/22/21 01/22/21 22:57 22:57 22:57 WBC RBC Hgb Hct MCV MCH MCHC RDW Plt Count Lymph % (Auto) Lymph # (Auto) Seg Neutrophils % Seg Neuts % (Manual) Lymphocytes % (Manual) Monocytes % (Manual) Nucleated RBC % Seg Neutrophils # Seg Neutrophils # Man Lymphocytes # (Manual) Monocytes # (Manual) Eosinophils # (Manual) INR D-Dimer 1173.89 H ABG pH POC ABG pCO2 POC ABG pO2 ABG pO2 ABG HCO3 ABG O2 Saturation ABG Base Excess ABG Hemoglobin ABG Oxyhemoglobin ABG Sodium ABG Potassium ABG Chloride ABG Glucose Oxyhemoglobin Carboxyhemoglobin Sodium Potassium Chloride Carbon Dioxide BUN Creatinine Glucose 149 H POC Glucose Hemoglobin A1c Lactic Acid 2.10 H* Calcium Phosphorus Magnesium Ferritin Total Bilirubin AST ALT Lactate Dehydrogenase 685 H C-Reactive Protein 30.40 H Albumin Triglycerides Arterial Blood Glucose Arterial Blood Ionized Calcium Urine Creatinine Coronavirus (PCR) Crossmatch 01/22/21 01/23/21 01/23/21 22:57 08:41 10:01 WBC RBC Hgb Hct MCV MCH MCHC RDW Plt Count Lymph % (Auto) Lymph # (Auto) Seg Neutrophils % Seg Neuts % (Manual) Lymphocytes % (Manual) Monocytes % (Manual) Nucleated RBC % Seg Neutrophils # Seg Neutrophils # Man Lymphocytes # (Manual) Monocytes # (Manual) Eosinophils # (Manual) INR D-Dimer ABG pH POC ABG pCO2 POC ABG pO2 ABG pO2 ABG HCO3 ABG O2 Saturation ABG Base Excess ABG Hemoglobin ABG Oxyhemoglobin ABG Sodium ABG Potassium ABG Chloride ABG Glucose Oxyhemoglobin Carboxyhemoglobin Sodium 131 L Potassium Chloride 88.7 L Carbon Dioxide 18 L BUN 36 H Creatinine 1.6 H Glucose 147 H POC Glucose Hemoglobin A1c Lactic Acid Calcium 7.5 L Phosphorus Magnesium Ferritin 1207.0 H Total Bilirubin AST ALT Lactate Dehydrogenase C-Reactive Protein Albumin Triglycerides Arterial Blood Glucose Arterial Blood Ionized Calcium Urine Creatinine Coronavirus (PCR) Positive A Crossmatch 01/23/21 01/23/21 01/24/21 20:49 Unknown 00:10 WBC RBC Hgb Hct MCV MCH MCHC RDW Plt Count Lymph % (Auto) Lymph # (Auto) Seg Neutrophils % Seg Neuts % (Manual) Lymphocytes % (Manual) Monocytes % (Manual) Nucleated RBC % Seg Neutrophils # Seg Neutrophils # Man Lymphocytes # (Manual) Monocytes # (Manual) Eosinophils # (Manual) INR D-Dimer ABG pH POC ABG pCO2 POC ABG pO2 ABG pO2 165.4 H ABG HCO3 ABG O2 Saturation ABG Base Excess -2.5 L ABG Hemoglobin ABG Oxyhemoglobin ABG Sodium ABG Potassium ABG Chloride ABG Glucose Oxyhemoglobin Carboxyhemoglobin Sodium 130 L Potassium Chloride 91.0 L Carbon Dioxide 20 L BUN 52 H Creatinine 3.8 H D Glucose 150 H POC Glucose 125 H Hemoglobin A1c Lactic Acid Calcium 8.0 L Phosphorus Magnesium Ferritin Total Bilirubin AST 42 H ALT Lactate Dehydrogenase C-Reactive Protein Albumin 2.4 L Triglycerides Arterial Blood Glucose Arterial Blood Ionized Calcium Urine Creatinine Coronavirus (PCR) Crossmatch 01/24/21 01/24/21 01/24/21 05:05 05:05 05:05 WBC 14.0 H RBC Hgb Hct MCV 95 H MCH 33 H MCHC RDW Plt Count Lymph % (Auto) Lymph # (Auto) Seg Neutrophils % Seg Neuts % (Manual) 91.0 H Lymphocytes % (Manual) 4.0 L Monocytes % (Manual) Nucleated RBC % Seg Neutrophils # Seg Neutrophils # Man 12.7 H Lymphocytes # (Manual) 0.6 L Monocytes # (Manual) Eosinophils # (Manual) INR D-Dimer 6159.48 H ABG pH POC ABG pCO2 POC ABG pO2 ABG pO2 ABG HCO3 ABG O2 Saturation ABG Base Excess ABG Hemoglobin ABG Oxyhemoglobin ABG Sodium ABG Potassium ABG Chloride ABG Glucose Oxyhemoglobin Carboxyhemoglobin Sodium Potassium Chloride Carbon Dioxide BUN Creatinine Glucose POC Glucose Hemoglobin A1c Lactic Acid Calcium Phosphorus Magnesium Ferritin 1178.0 H Total Bilirubin AST ALT Lactate Dehydrogenase C-Reactive Protein Albumin Triglycerides Arterial Blood Glucose Arterial Blood Ionized Calcium Urine Creatinine Coronavirus (PCR) Crossmatch 01/24/21 01/24/21 01/24/21 05:05 05:05 05:05 WBC RBC Hgb Hct MCV MCH MCHC RDW Plt Count Lymph % (Auto) Lymph # (Auto) Seg Neutrophils % Seg Neuts % (Manual) Lymphocytes % (Manual) Monocytes % (Manual) Nucleated RBC % Seg Neutrophils # Seg Neutrophils # Man Lymphocytes # (Manual) Monocytes # (Manual) Eosinophils # (Manual) INR D-Dimer ABG pH POC ABG pCO2 POC ABG pO2 ABG pO2 ABG HCO3 ABG O2 Saturation ABG Base Excess ABG Hemoglobin ABG Oxyhemoglobin ABG Sodium ABG Potassium ABG Chloride ABG Glucose Oxyhemoglobin Carboxyhemoglobin Sodium 132 L Potassium Chloride 93.1 L Carbon Dioxide 21 L BUN 57 H Creatinine 3.7 H Glucose 133 H POC Glucose Hemoglobin A1c Lactic Acid 2.20 H* Calcium 7.7 L Phosphorus Magnesium Ferritin Total Bilirubin AST ALT Lactate Dehydrogenase 658 H C-Reactive Protein 33.20 H Albumin 2.4 L Triglycerides Arterial Blood Glucose Arterial Blood Ionized Calcium Urine Creatinine Coronavirus (PCR) Crossmatch 01/24/21 01/24/21 01/24/21 05:34 06:00 17:35 WBC RBC Hgb Hct MCV MCH MCHC RDW Plt Count Lymph % (Auto) Lymph # (Auto) Seg Neutrophils % Seg Neuts % (Manual) Lymphocytes % (Manual) Monocytes % (Manual) Nucleated RBC % Seg Neutrophils # Seg Neutrophils # Man Lymphocytes # (Manual) Monocytes # (Manual) Eosinophils # (Manual) INR D-Dimer ABG pH POC ABG pCO2 POC ABG pO2 ABG pO2 ABG HCO3 ABG O2 Saturation ABG Base Excess ABG Hemoglobin ABG Oxyhemoglobin ABG Sodium ABG Potassium ABG Chloride ABG Glucose Oxyhemoglobin Carboxyhemoglobin Sodium Potassium Chloride Carbon Dioxide BUN Creatinine Glucose POC Glucose 136 H 137 H Hemoglobin A1c Lactic Acid Calcium Phosphorus Magnesium 2.80 H Ferritin Total Bilirubin AST ALT Lactate Dehydrogenase C-Reactive Protein Albumin Triglycerides Arterial Blood Glucose Arterial Blood Ionized Calcium Urine Creatinine Coronavirus (PCR) Crossmatch 01/25/21 01/25/21 01/25/21 04:15 05:40 05:40 WBC RBC Hgb Hct MCV 95 H MCH 33 H MCHC 35 H RDW Plt Count Lymph % (Auto) Lymph # (Auto) Seg Neutrophils % Seg Neuts % (Manual) 95.0 H Lymphocytes % (Manual) 3.0 L Monocytes % (Manual) Nucleated RBC % Seg Neutrophils # Seg Neutrophils # Man 7.8 H Lymphocytes # (Manual) 0.2 L Monocytes # (Manual) Eosinophils # (Manual) INR D-Dimer ABG pH POC ABG pCO2 POC ABG pO2 63.2 L ABG pO2 ABG HCO3 ABG O2 Saturation ABG Base Excess ABG Hemoglobin ABG Oxyhemoglobin 89.6 L ABG Sodium ABG Potassium ABG Chloride ABG Glucose 165 H Oxyhemoglobin Carboxyhemoglobin 0.3 L Sodium Potassium Chloride Carbon Dioxide BUN 67 H Creatinine 3.4 H Glucose 153 H POC Glucose Hemoglobin A1c Lactic Acid Calcium 7.5 L Phosphorus Magnesium Ferritin Total Bilirubin 1.40 H AST 62 H ALT Lactate Dehydrogenase C-Reactive Protein Albumin 2.6 L Triglycerides Arterial Blood Glucose 165 H Arterial Blood Ionized Calcium 4.3 L Urine Creatinine Coronavirus (PCR) Crossmatch 01/25/21 01/25/21 01/25/21 05:59 12:00 17:17 WBC RBC Hgb Hct MCV MCH MCHC RDW Plt Count Lymph % (Auto) Lymph # (Auto) Seg Neutrophils % Seg Neuts % (Manual) Lymphocytes % (Manual) Monocytes % (Manual) Nucleated RBC % Seg Neutrophils # Seg Neutrophils # Man Lymphocytes # (Manual) Monocytes # (Manual) Eosinophils # (Manual) INR D-Dimer ABG pH POC ABG pCO2 POC ABG pO2 ABG pO2 ABG HCO3 ABG O2 Saturation ABG Base Excess ABG Hemoglobin ABG Oxyhemoglobin ABG Sodium ABG Potassium ABG Chloride ABG Glucose Oxyhemoglobin Carboxyhemoglobin Sodium Potassium Chloride Carbon Dioxide BUN Creatinine Glucose POC Glucose 140 H 143 H 149 H Hemoglobin A1c Lactic Acid Calcium Phosphorus Magnesium Ferritin Total Bilirubin AST ALT Lactate Dehydrogenase C-Reactive Protein Albumin Triglycerides Arterial Blood Glucose Arterial Blood Ionized Calcium Urine Creatinine Coronavirus (PCR) Crossmatch 01/25/21 01/26/21 01/26/21 23:41 03:43 05:46 WBC RBC Hgb Hct MCV MCH MCHC RDW Plt Count Lymph % (Auto) Lymph # (Auto) Seg Neutrophils % Seg Neuts % (Manual) Lymphocytes % (Manual) Monocytes % (Manual) Nucleated RBC % Seg Neutrophils # Seg Neutrophils # Man Lymphocytes # (Manual) Monocytes # (Manual) Eosinophils # (Manual) INR D-Dimer ABG pH POC ABG pCO2 POC ABG pO2 70.0 L ABG pO2 ABG HCO3 ABG O2 Saturation ABG Base Excess ABG Hemoglobin ABG Oxyhemoglobin 91.9 L ABG Sodium ABG Potassium ABG Chloride 109.0 H ABG Glucose 165 H Oxyhemoglobin Carboxyhemoglobin Sodium Potassium Chloride Carbon Dioxide BUN Creatinine Glucose POC Glucose 132 H 161 H Hemoglobin A1c Lactic Acid Calcium Phosphorus Magnesium Ferritin Total Bilirubin AST ALT Lactate Dehydrogenase C-Reactive Protein Albumin Triglycerides Arterial Blood Glucose 165 H Arterial Blood Ionized Calcium 4.5 L Urine Creatinine Coronavirus (PCR) Crossmatch 01/26/21 01/26/21 01/26/21 05:47 05:47 05:47 WBC RBC Hgb Hct 35.3 L MCV 96 H MCH 33 H MCHC RDW Plt Count Lymph % (Auto) Lymph # (Auto) Seg Neutrophils % Seg Neuts % (Manual) 96.0 H Lymphocytes % (Manual) 2.0 L Monocytes % (Manual) Nucleated RBC % Seg Neutrophils # Seg Neutrophils # Man Lymphocytes # (Manual) 0.1 L Monocytes # (Manual) Eosinophils # (Manual) INR D-Dimer > 74659 H ABG pH POC ABG pCO2 POC ABG pO2 ABG pO2 ABG HCO3 ABG O2 Saturation ABG Base Excess ABG Hemoglobin ABG Oxyhemoglobin ABG Sodium ABG Potassium ABG Chloride ABG Glucose Oxyhemoglobin Carboxyhemoglobin Sodium Potassium Chloride Carbon Dioxide BUN 57 H Creatinine 2.2 H Glucose 185 H POC Glucose Hemoglobin A1c Lactic Acid Calcium 8.1 L Phosphorus Magnesium Ferritin Total Bilirubin AST ALT Lactate Dehydrogenase C-Reactive Protein Albumin Triglycerides Arterial Blood Glucose Arterial Blood Ionized Calcium Urine Creatinine Coronavirus (PCR) Crossmatch 01/26/21 01/26/21 01/26/21 05:47 05:47 05:47 WBC RBC Hgb Hct MCV MCH MCHC RDW Plt Count Lymph % (Auto) Lymph # (Auto) Seg Neutrophils % Seg Neuts % (Manual) Lymphocytes % (Manual) Monocytes % (Manual) Nucleated RBC % Seg Neutrophils # Seg Neutrophils # Man Lymphocytes # (Manual) Monocytes # (Manual) Eosinophils # (Manual) INR D-Dimer ABG pH POC ABG pCO2 POC ABG pO2 ABG pO2 ABG HCO3 ABG O2 Saturation ABG Base Excess ABG Hemoglobin ABG Oxyhemoglobin ABG Sodium ABG Potassium ABG Chloride ABG Glucose Oxyhemoglobin Carboxyhemoglobin Sodium Potassium Chloride 107.1 H Carbon Dioxide BUN 56 H Creatinine 2.2 H Glucose 188 H POC Glucose Hemoglobin A1c Lactic Acid Calcium 8.0 L Phosphorus Magnesium Ferritin 1178.0 H Total Bilirubin 1.50 H AST ALT Lactate Dehydrogenase 588 H C-Reactive Protein 40.10 H Albumin 2.2 L Triglycerides Arterial Blood Glucose Arterial Blood Ionized Calcium Urine Creatinine Coronavirus (PCR) Crossmatch 01/26/21 01/26/21 01/26/21 11:34 18:17 23:20 WBC RBC Hgb Hct MCV MCH MCHC RDW Plt Count Lymph % (Auto) Lymph # (Auto) Seg Neutrophils % Seg Neuts % (Manual) Lymphocytes % (Manual) Monocytes % (Manual) Nucleated RBC % Seg Neutrophils # Seg Neutrophils # Man Lymphocytes # (Manual) Monocytes # (Manual) Eosinophils # (Manual) INR D-Dimer ABG pH POC ABG pCO2 POC ABG pO2 ABG pO2 ABG HCO3 ABG O2 Saturation ABG Base Excess ABG Hemoglobin ABG Oxyhemoglobin ABG Sodium ABG Potassium ABG Chloride ABG Glucose Oxyhemoglobin Carboxyhemoglobin Sodium Potassium Chloride Carbon Dioxide BUN Creatinine Glucose POC Glucose 129 H 205 H 155 H Hemoglobin A1c Lactic Acid Calcium Phosphorus Magnesium Ferritin Total Bilirubin AST ALT Lactate Dehydrogenase C-Reactive Protein Albumin Triglycerides Arterial Blood Glucose Arterial Blood Ionized Calcium Urine Creatinine Coronavirus (PCR) Crossmatch 01/27/21 01/27/21 01/27/21 02:45 05:29 05:29 WBC RBC 3.58 L Hgb 11.7 L Hct 34.9 L MCV 97 H MCH 33 H MCHC RDW Plt Count Lymph % (Auto) Lymph # (Auto) Seg Neutrophils % Seg Neuts % (Manual) 88.0 H Lymphocytes % (Manual) 7.0 L Monocytes % (Manual) Nucleated RBC % Seg Neutrophils # Seg Neutrophils # Man Lymphocytes # (Manual) 0.5 L Monocytes # (Manual) Eosinophils # (Manual) INR D-Dimer ABG pH 7.319 L POC ABG pCO2 50.7 H POC ABG pO2 63.0 L ABG pO2 ABG HCO3 ABG O2 Saturation ABG Base Excess ABG Hemoglobin ABG Oxyhemoglobin ABG Sodium 145.2 H ABG Potassium 5.1 H ABG Chloride 114.0 H ABG Glucose 178 H Oxyhemoglobin Carboxyhemoglobin Sodium Potassium Chloride Carbon Dioxide BUN Creatinine Glucose POC Glucose Hemoglobin A1c Lactic Acid Calcium Phosphorus Magnesium 4.00 H Ferritin Total Bilirubin AST ALT Lactate Dehydrogenase C-Reactive Protein Albumin Triglycerides Arterial Blood Glucose 178 H Arterial Blood Ionized Calcium Urine Creatinine Coronavirus (PCR) Crossmatch 01/27/21 01/27/21 01/27/21 05:29 05:29 05:31 WBC RBC Hgb Hct MCV MCH MCHC RDW Plt Count Lymph % (Auto) Lymph # (Auto) Seg Neutrophils % Seg Neuts % (Manual) Lymphocytes % (Manual) Monocytes % (Manual) Nucleated RBC % Seg Neutrophils # Seg Neutrophils # Man Lymphocytes # (Manual) Monocytes # (Manual) Eosinophils # (Manual) INR D-Dimer ABG pH POC ABG pCO2 POC ABG pO2 ABG pO2 ABG HCO3 ABG O2 Saturation ABG Base Excess ABG Hemoglobin ABG Oxyhemoglobin ABG Sodium ABG Potassium ABG Chloride ABG Glucose Oxyhemoglobin Carboxyhemoglobin Sodium Potassium 5.2 H Chloride 109.6 H Carbon Dioxide BUN 67 H Creatinine 2.8 H Glucose 195 H POC Glucose 176 H Hemoglobin A1c Lactic Acid Calcium 7.9 L Phosphorus Magnesium Ferritin Total Bilirubin AST ALT Lactate Dehydrogenase C-Reactive Protein Albumin Triglycerides 160 H Arterial Blood Glucose Arterial Blood Ionized Calcium Urine Creatinine Coronavirus (PCR) Crossmatch 01/27/21 01/27/21 01/27/21 11:27 18:08 23:30 WBC RBC Hgb Hct MCV MCH MCHC RDW Plt Count Lymph % (Auto) Lymph # (Auto) Seg Neutrophils % Seg Neuts % (Manual) Lymphocytes % (Manual) Monocytes % (Manual) Nucleated RBC % Seg Neutrophils # Seg Neutrophils # Man Lymphocytes # (Manual) Monocytes # (Manual) Eosinophils # (Manual) INR D-Dimer ABG pH POC ABG pCO2 POC ABG pO2 ABG pO2 ABG HCO3 ABG O2 Saturation ABG Base Excess ABG Hemoglobin ABG Oxyhemoglobin ABG Sodium ABG Potassium ABG Chloride ABG Glucose Oxyhemoglobin Carboxyhemoglobin Sodium Potassium Chloride Carbon Dioxide BUN Creatinine Glucose POC Glucose 189 H 212 H 175 H Hemoglobin A1c Lactic Acid Calcium Phosphorus Magnesium Ferritin Total Bilirubin AST ALT Lactate Dehydrogenase C-Reactive Protein Albumin Triglycerides Arterial Blood Glucose Arterial Blood Ionized Calcium Urine Creatinine Coronavirus (PCR) Crossmatch 01/28/21 01/28/21 01/28/21 03:58 04:00 04:00 WBC RBC Hgb Hct MCV MCH MCHC RDW Plt Count Lymph % (Auto) Lymph # (Auto) Seg Neutrophils % Seg Neuts % (Manual) Lymphocytes % (Manual) Monocytes % (Manual) Nucleated RBC % Seg Neutrophils # Seg Neutrophils # Man Lymphocytes # (Manual) Monocytes # (Manual) Eosinophils # (Manual) INR D-Dimer > 62405 H ABG pH POC ABG pCO2 POC ABG pO2 52.9 L ABG pO2 ABG HCO3 ABG O2 Saturation ABG Base Excess ABG Hemoglobin ABG Oxyhemoglobin 84.1 L ABG Sodium 148.9 H ABG Potassium ABG Chloride 117.0 H ABG Glucose 194 H Oxyhemoglobin Carboxyhemoglobin Sodium Potassium Chloride Carbon Dioxide BUN Creatinine Glucose POC Glucose Hemoglobin A1c Lactic Acid Calcium Phosphorus Magnesium Ferritin Total Bilirubin AST ALT Lactate Dehydrogenase 679 H C-Reactive Protein 17.10 H Albumin Triglycerides Arterial Blood Glucose 194 H Arterial Blood Ionized Calcium Urine Creatinine Coronavirus (PCR) Crossmatch 01/28/21 01/28/21 01/28/21 04:00 05:00 06:00 WBC RBC 3.59 L Hgb 11.6 L Hct 34.8 L MCV 97 H MCH MCHC RDW Plt Count Lymph % (Auto) Lymph # (Auto) Seg Neutrophils % Seg Neuts % (Manual) 96.0 H Lymphocytes % (Manual) 3.0 L Monocytes % (Manual) Nucleated RBC % Seg Neutrophils # Seg Neutrophils # Man Lymphocytes # (Manual) 0.2 L Monocytes # (Manual) Eosinophils # (Manual) INR D-Dimer ABG pH POC ABG pCO2 POC ABG pO2 ABG pO2 ABG HCO3 ABG O2 Saturation ABG Base Excess ABG Hemoglobin ABG Oxyhemoglobin ABG Sodium ABG Potassium ABG Chloride ABG Glucose Oxyhemoglobin Carboxyhemoglobin Sodium Potassium Chloride Carbon Dioxide BUN Creatinine Glucose POC Glucose 159 H Hemoglobin A1c Lactic Acid Calcium Phosphorus Magnesium Ferritin 798.0 H Total Bilirubin AST ALT Lactate Dehydrogenase C-Reactive Protein Albumin Triglycerides Arterial Blood Glucose Arterial Blood Ionized Calcium Urine Creatinine Coronavirus (PCR) Crossmatch 01/28/21 01/28/21 01/28/21 06:00 06:00 08:12 WBC RBC Hgb Hct MCV MCH MCHC RDW Plt Count Lymph % (Auto) Lymph # (Auto) Seg Neutrophils % Seg Neuts % (Manual) Lymphocytes % (Manual) Monocytes % (Manual) Nucleated RBC % Seg Neutrophils # Seg Neutrophils # Man Lymphocytes # (Manual) Monocytes # (Manual) Eosinophils # (Manual) INR D-Dimer ABG pH POC ABG pCO2 POC ABG pO2 ABG pO2 ABG HCO3 ABG O2 Saturation ABG Base Excess ABG Hemoglobin ABG Oxyhemoglobin ABG Sodium ABG Potassium ABG Chloride ABG Glucose Oxyhemoglobin Carboxyhemoglobin Sodium Potassium Chloride 111.9 H Carbon Dioxide BUN 59 H Creatinine 2.2 H Glucose 189 H POC Glucose 181 H Hemoglobin A1c Lactic Acid Calcium 8.1 L Phosphorus Magnesium 3.20 H Ferritin Total Bilirubin AST ALT Lactate Dehydrogenase C-Reactive Protein Albumin Triglycerides Arterial Blood Glucose Arterial Blood Ionized Calcium Urine Creatinine Coronavirus (PCR) Crossmatch 01/28/21 01/28/21 01/28/21 12:03 16:43 23:51 WBC RBC Hgb Hct MCV MCH MCHC RDW Plt Count Lymph % (Auto) Lymph # (Auto) Seg Neutrophils % Seg Neuts % (Manual) Lymphocytes % (Manual) Monocytes % (Manual) Nucleated RBC % Seg Neutrophils # Seg Neutrophils # Man Lymphocytes # (Manual) Monocytes # (Manual) Eosinophils # (Manual) INR D-Dimer ABG pH POC ABG pCO2 POC ABG pO2 ABG pO2 ABG HCO3 ABG O2 Saturation ABG Base Excess ABG Hemoglobin ABG Oxyhemoglobin ABG Sodium ABG Potassium ABG Chloride ABG Glucose Oxyhemoglobin Carboxyhemoglobin Sodium Potassium Chloride Carbon Dioxide BUN Creatinine Glucose POC Glucose 164 H 198 H 196 H Hemoglobin A1c Lactic Acid Calcium Phosphorus Magnesium Ferritin Total Bilirubin AST ALT Lactate Dehydrogenase C-Reactive Protein Albumin Triglycerides Arterial Blood Glucose Arterial Blood Ionized Calcium Urine Creatinine Coronavirus (PCR) Crossmatch 01/29/21 01/29/21 01/29/21 05:00 05:23 06:00 WBC RBC Hgb Hct MCV MCH MCHC RDW Plt Count Lymph % (Auto) Lymph # (Auto) Seg Neutrophils % Seg Neuts % (Manual) Lymphocytes % (Manual) Monocytes % (Manual) Nucleated RBC % Seg Neutrophils # Seg Neutrophils # Man Lymphocytes # (Manual) Monocytes # (Manual) Eosinophils # (Manual) INR D-Dimer ABG pH 7.119 L POC ABG pCO2 87.1 H POC ABG pO2 ABG pO2 ABG HCO3 ABG O2 Saturation ABG Base Excess ABG Hemoglobin ABG Oxyhemoglobin ABG Sodium 152.5 H ABG Potassium 5.7 H ABG Chloride 120.0 H ABG Glucose 217 H Oxyhemoglobin Carboxyhemoglobin Sodium 151 H Potassium 5.9 H D Chloride 117.8 H Carbon Dioxide BUN 54 H Creatinine 2.2 H Glucose 208 H POC Glucose 180 H Hemoglobin A1c Lactic Acid Calcium 7.9 L Phosphorus Magnesium Ferritin Total Bilirubin AST ALT Lactate Dehydrogenase C-Reactive Protein Albumin Triglycerides Arterial Blood Glucose 217 H Arterial Blood Ionized Calcium Urine Creatinine Coronavirus (PCR) Crossmatch 01/29/21 01/29/21 01/29/21 12:29 17:28 18:05 WBC RBC Hgb Hct MCV MCH MCHC RDW Plt Count Lymph % (Auto) Lymph # (Auto) Seg Neutrophils % Seg Neuts % (Manual) Lymphocytes % (Manual) Monocytes % (Manual) Nucleated RBC % Seg Neutrophils # Seg Neutrophils # Man Lymphocytes # (Manual) Monocytes # (Manual) Eosinophils # (Manual) INR D-Dimer ABG pH POC ABG pCO2 POC ABG pO2 ABG pO2 ABG HCO3 ABG O2 Saturation ABG Base Excess ABG Hemoglobin ABG Oxyhemoglobin ABG Sodium ABG Potassium ABG Chloride ABG Glucose Oxyhemoglobin Carboxyhemoglobin Sodium 151 H Potassium 5.5 H Chloride 118.2 H Carbon Dioxide BUN 52 H Creatinine 2.2 H Glucose 224 H POC Glucose 181 H 203 H Hemoglobin A1c Lactic Acid Calcium 8.0 L Phosphorus Magnesium Ferritin Total Bilirubin AST ALT Lactate Dehydrogenase C-Reactive Protein Albumin Triglycerides Arterial Blood Glucose Arterial Blood Ionized Calcium Urine Creatinine Coronavirus (PCR) Crossmatch 01/29/21 01/29/21 01/29/21 18:13 23:34 Unknown WBC RBC Hgb Hct MCV 101 H MCH MCHC RDW 15.7 H Plt Count Lymph % (Auto) Lymph # (Auto) Seg Neutrophils % Seg Neuts % (Manual) 95.0 H Lymphocytes % (Manual) 3.0 L Monocytes % (Manual) Nucleated RBC % Seg Neutrophils # Seg Neutrophils # Man 8.0 H Lymphocytes # (Manual) 0.3 L Monocytes # (Manual) Eosinophils # (Manual) INR D-Dimer ABG pH 7.223 L POC ABG pCO2 64.8 H POC ABG pO2 63.6 L ABG pO2 ABG HCO3 ABG O2 Saturation ABG Base Excess ABG Hemoglobin ABG Oxyhemoglobin 89.4 L ABG Sodium 152.9 H ABG Potassium 5.3 H ABG Chloride 121.0 H ABG Glucose 227 H Oxyhemoglobin Carboxyhemoglobin Sodium Potassium Chloride Carbon Dioxide BUN Creatinine Glucose POC Glucose 198 H Hemoglobin A1c Lactic Acid Calcium Phosphorus Magnesium Ferritin Total Bilirubin AST ALT Lactate Dehydrogenase C-Reactive Protein Albumin Triglycerides Arterial Blood Glucose 227 H Arterial Blood Ionized Calcium Urine Creatinine Coronavirus (PCR) Crossmatch 01/30/21 01/30/21 01/30/21 04:00 04:00 04:00 WBC RBC Hgb Hct MCV MCH MCHC RDW Plt Count Lymph % (Auto) Lymph # (Auto) Seg Neutrophils % Seg Neuts % (Manual) Lymphocytes % (Manual) Monocytes % (Manual) Nucleated RBC % Seg Neutrophils # Seg Neutrophils # Man Lymphocytes # (Manual) Monocytes # (Manual) Eosinophils # (Manual) INR D-Dimer > 32006 H ABG pH POC ABG pCO2 POC ABG pO2 ABG pO2 ABG HCO3 ABG O2 Saturation ABG Base Excess ABG Hemoglobin ABG Oxyhemoglobin ABG Sodium ABG Potassium ABG Chloride ABG Glucose Oxyhemoglobin Carboxyhemoglobin Sodium Potassium Chloride Carbon Dioxide BUN Creatinine Glucose 234 H POC Glucose Hemoglobin A1c Lactic Acid Calcium Phosphorus Magnesium Ferritin 763.9 H Total Bilirubin AST ALT Lactate Dehydrogenase 424 H C-Reactive Protein 23.90 H Albumin Triglycerides Arterial Blood Glucose Arterial Blood Ionized Calcium Urine Creatinine Coronavirus (PCR) Crossmatch 01/30/21 01/30/21 01/30/21 04:24 05:00 05:16 WBC RBC 3.57 L Hgb 11.3 L Hct 35.4 L MCV 99 H MCH MCHC RDW 15.6 H Plt Count Lymph % (Auto) Lymph # (Auto) Seg Neutrophils % Seg Neuts % (Manual) 97.0 H Lymphocytes % (Manual) 1.0 L Monocytes % (Manual) Nucleated RBC % Seg Neutrophils # Seg Neutrophils # Man 8.6 H Lymphocytes # (Manual) 0.1 L Monocytes # (Manual) Eosinophils # (Manual) INR D-Dimer ABG pH 7.235 L POC ABG pCO2 69.7 H POC ABG pO2 61.0 L ABG pO2 ABG HCO3 ABG O2 Saturation ABG Base Excess ABG Hemoglobin ABG Oxyhemoglobin 89 L ABG Sodium 154.2 H ABG Potassium 5.4 H ABG Chloride 121.0 H ABG Glucose 247 H Oxyhemoglobin Carboxyhemoglobin Sodium Potassium Chloride Carbon Dioxide BUN Creatinine Glucose POC Glucose 238 H Hemoglobin A1c Lactic Acid Calcium Phosphorus Magnesium Ferritin Total Bilirubin AST ALT Lactate Dehydrogenase C-Reactive Protein Albumin Triglycerides Arterial Blood Glucose 247 H Arterial Blood Ionized Calcium Urine Creatinine Coronavirus (PCR) Crossmatch 01/30/21 01/30/21 01/30/21 06:00 11:28 12:00 WBC RBC Hgb Hct MCV MCH MCHC RDW Plt Count Lymph % (Auto) Lymph # (Auto) Seg Neutrophils % Seg Neuts % (Manual) Lymphocytes % (Manual) Monocytes % (Manual) Nucleated RBC % Seg Neutrophils # Seg Neutrophils # Man Lymphocytes # (Manual) Monocytes # (Manual) Eosinophils # (Manual) INR D-Dimer ABG pH POC ABG pCO2 POC ABG pO2 ABG pO2 ABG HCO3 ABG O2 Saturation ABG Base Excess ABG Hemoglobin ABG Oxyhemoglobin ABG Sodium ABG Potassium ABG Chloride ABG Glucose Oxyhemoglobin Carboxyhemoglobin Sodium 152 H Potassium 5.3 H Chloride 120.5 H Carbon Dioxide BUN 50 H Creatinine 2.3 H Glucose 239 H POC Glucose 153 H Hemoglobin A1c Lactic Acid Calcium 8.2 L Phosphorus Magnesium 2.60 H Ferritin Total Bilirubin AST ALT Lactate Dehydrogenase C-Reactive Protein Albumin Triglycerides 293 H Arterial Blood Glucose Arterial Blood Ionized Calcium Urine Creatinine 53.0 H Coronavirus (PCR) Crossmatch 01/30/21 01/30/21 01/31/21 18:49 23:06 04:00 WBC RBC Hgb Hct MCV MCH MCHC RDW Plt Count Lymph % (Auto) Lymph # (Auto) Seg Neutrophils % Seg Neuts % (Manual) Lymphocytes % (Manual) Monocytes % (Manual) Nucleated RBC % Seg Neutrophils # Seg Neutrophils # Man Lymphocytes # (Manual) Monocytes # (Manual) Eosinophils # (Manual) INR D-Dimer ABG pH POC ABG pCO2 POC ABG pO2 ABG pO2 ABG HCO3 ABG O2 Saturation ABG Base Excess ABG Hemoglobin ABG Oxyhemoglobin ABG Sodium ABG Potassium ABG Chloride ABG Glucose Oxyhemoglobin Carboxyhemoglobin Sodium 156 H Potassium 5.9 H Chloride 122.6 H Carbon Dioxide BUN 61 H Creatinine 3.2 H Glucose 205 H POC Glucose 220 H 192 H Hemoglobin A1c Lactic Acid Calcium 8.0 L Phosphorus Magnesium Ferritin Total Bilirubin AST ALT Lactate Dehydrogenase C-Reactive Protein Albumin Triglycerides Arterial Blood Glucose Arterial Blood Ionized Calcium Urine Creatinine Coronavirus (PCR) Crossmatch 01/31/21 01/31/21 01/31/21 04:40 05:17 11:33 WBC RBC Hgb Hct MCV MCH MCHC RDW Plt Count Lymph % (Auto) Lymph # (Auto) Seg Neutrophils % Seg Neuts % (Manual) Lymphocytes % (Manual) Monocytes % (Manual) Nucleated RBC % Seg Neutrophils # Seg Neutrophils # Man Lymphocytes # (Manual) Monocytes # (Manual) Eosinophils # (Manual) INR D-Dimer ABG pH 7.161 L* POC ABG pCO2 POC ABG pO2 ABG pO2 142.2 H ABG HCO3 28.3 H ABG O2 Saturation ABG Base Excess -3.2 L ABG Hemoglobin ABG Oxyhemoglobin ABG Sodium ABG Potassium ABG Chloride ABG Glucose Oxyhemoglobin Carboxyhemoglobin Sodium Potassium Chloride Carbon Dioxide BUN Creatinine Glucose POC Glucose 200 H 167 H Hemoglobin A1c Lactic Acid Calcium Phosphorus Magnesium Ferritin Total Bilirubin AST ALT Lactate Dehydrogenase C-Reactive Protein Albumin Triglycerides Arterial Blood Glucose Arterial Blood Ionized Calcium Urine Creatinine Coronavirus (PCR) Crossmatch 01/31/21 01/31/21 01/31/21 14:00 17:10 23:24 WBC RBC Hgb Hct MCV MCH MCHC RDW Plt Count Lymph % (Auto) Lymph # (Auto) Seg Neutrophils % Seg Neuts % (Manual) Lymphocytes % (Manual) Monocytes % (Manual) Nucleated RBC % Seg Neutrophils # Seg Neutrophils # Man Lymphocytes # (Manual) Monocytes # (Manual) Eosinophils # (Manual) INR D-Dimer ABG pH 7.205 L POC ABG pCO2 POC ABG pO2 ABG pO2 90.9 H ABG HCO3 26.5 H ABG O2 Saturation ABG Base Excess -2.7 L ABG Hemoglobin 12.3 L ABG Oxyhemoglobin ABG Sodium ABG Potassium ABG Chloride ABG Glucose Oxyhemoglobin 93.9 L Carboxyhemoglobin Sodium Potassium Chloride Carbon Dioxide BUN Creatinine Glucose POC Glucose 190 H 203 H Hemoglobin A1c Lactic Acid Calcium Phosphorus Magnesium Ferritin Total Bilirubin AST ALT Lactate Dehydrogenase C-Reactive Protein Albumin Triglycerides Arterial Blood Glucose Arterial Blood Ionized Calcium Urine Creatinine Coronavirus (PCR) Crossmatch 02/01/21 02/01/21 02/01/21 05:15 06:22 10:20 WBC RBC Hgb Hct MCV MCH MCHC RDW Plt Count Lymph % (Auto) Lymph # (Auto) Seg Neutrophils % Seg Neuts % (Manual) Lymphocytes % (Manual) Monocytes % (Manual) Nucleated RBC % Seg Neutrophils # Seg Neutrophils # Man Lymphocytes # (Manual) Monocytes # (Manual) Eosinophils # (Manual) INR D-Dimer ABG pH 6.920 L* 7.116 L* POC ABG pCO2 POC ABG pO2 ABG pO2 102.9 H 113.1 H ABG HCO3 28.2 H ABG O2 Saturation 92.9 L ABG Base Excess -6.9 L -5.8 L ABG Hemoglobin 11.6 L 9.5 L ABG Oxyhemoglobin ABG Sodium ABG Potassium ABG Chloride ABG Glucose Oxyhemoglobin 90.5 L 94.6 L Carboxyhemoglobin Sodium Potassium Chloride Carbon Dioxide BUN Creatinine Glucose POC Glucose 221 H Hemoglobin A1c Lactic Acid Calcium Phosphorus Magnesium Ferritin Total Bilirubin AST ALT Lactate Dehydrogenase C-Reactive Protein Albumin Triglycerides Arterial Blood Glucose Arterial Blood Ionized Calcium Urine Creatinine Coronavirus (PCR) Crossmatch 02/01/21 02/01/21 02/01/21 11:12 12:35 16:00 WBC RBC Hgb Hct MCV MCH MCHC RDW Plt Count Lymph % (Auto) Lymph # (Auto) Seg Neutrophils % Seg Neuts % (Manual) Lymphocytes % (Manual) Monocytes % (Manual) Nucleated RBC % Seg Neutrophils # Seg Neutrophils # Man Lymphocytes # (Manual) Monocytes # (Manual) Eosinophils # (Manual) INR D-Dimer ABG pH 7.155 L* POC ABG pCO2 POC ABG pO2 ABG pO2 94.6 H ABG HCO3 ABG O2 Saturation ABG Base Excess -6.5 L ABG Hemoglobin 13.1 L ABG Oxyhemoglobin ABG Sodium ABG Potassium ABG Chloride ABG Glucose Oxyhemoglobin 93.7 L Carboxyhemoglobin Sodium 155 H Potassium 5.1 H Chloride 120.5 H Carbon Dioxide BUN 90 H Creatinine 6.1 H D Glucose 238 H POC Glucose 207 H Hemoglobin A1c Lactic Acid Calcium 7.4 L Phosphorus Magnesium Ferritin Total Bilirubin AST ALT Lactate Dehydrogenase C-Reactive Protein Albumin Triglycerides Arterial Blood Glucose Arterial Blood Ionized Calcium Urine Creatinine Coronavirus (PCR) Crossmatch 02/01/21 02/01/21 02/02/21 17:10 23:47 04:04 WBC RBC 3.02 L Hgb 9.8 L Hct 30.7 L MCV 102 H MCH MCHC RDW 15.6 H Plt Count Lymph % (Auto) 4.2 L Lymph # (Auto) 0.3 L Seg Neutrophils % Seg Neuts % (Manual) Lymphocytes % (Manual) Monocytes % (Manual) Nucleated RBC % Seg Neutrophils # Seg Neutrophils # Man Lymphocytes # (Manual) Monocytes # (Manual) Eosinophils # (Manual) INR D-Dimer ABG pH POC ABG pCO2 POC ABG pO2 ABG pO2 ABG HCO3 ABG O2 Saturation ABG Base Excess ABG Hemoglobin ABG Oxyhemoglobin ABG Sodium ABG Potassium ABG Chloride ABG Glucose Oxyhemoglobin Carboxyhemoglobin Sodium Potassium Chloride Carbon Dioxide BUN Creatinine Glucose POC Glucose 238 H 235 H Hemoglobin A1c Lactic Acid Calcium Phosphorus Magnesium Ferritin Total Bilirubin AST ALT Lactate Dehydrogenase C-Reactive Protein Albumin Triglycerides Arterial Blood Glucose Arterial Blood Ionized Calcium Urine Creatinine Coronavirus (PCR) Crossmatch 02/02/21 02/02/21 02/02/21 05:18 05:35 11:28 WBC RBC Hgb Hct MCV MCH MCHC RDW Plt Count Lymph % (Auto) Lymph # (Auto) Seg Neutrophils % Seg Neuts % (Manual) Lymphocytes % (Manual) Monocytes % (Manual) Nucleated RBC % Seg Neutrophils # Seg Neutrophils # Man Lymphocytes # (Manual) Monocytes # (Manual) Eosinophils # (Manual) INR D-Dimer ABG pH 7.195 L* POC ABG pCO2 POC ABG pO2 ABG pO2 72.5 L ABG HCO3 ABG O2 Saturation 91.2 L ABG Base Excess -5.3 L ABG Hemoglobin 6.0 L ABG Oxyhemoglobin ABG Sodium ABG Potassium ABG Chloride ABG Glucose Oxyhemoglobin 89.1 L Carboxyhemoglobin Sodium Potassium Chloride 110.4 H Carbon Dioxide BUN 92 H Creatinine Glucose POC Glucose 239 H Hemoglobin A1c Lactic Acid Calcium Phosphorus Magnesium Ferritin Total Bilirubin AST ALT Lactate Dehydrogenase C-Reactive Protein Albumin Triglycerides Arterial Blood Glucose Arterial Blood Ionized Calcium Urine Creatinine Coronavirus (PCR) Crossmatch 02/02/21 02/02/21 02/02/21 11:53 16:00 18:04 WBC RBC Hgb Hct MCV MCH MCHC RDW Plt Count Lymph % (Auto) Lymph # (Auto) Seg Neutrophils % Seg Neuts % (Manual) Lymphocytes % (Manual) Monocytes % (Manual) Nucleated RBC % Seg Neutrophils # Seg Neutrophils # Man Lymphocytes # (Manual) Monocytes # (Manual) Eosinophils # (Manual) INR D-Dimer ABG pH POC ABG pCO2 POC ABG pO2 ABG pO2 ABG HCO3 ABG O2 Saturation ABG Base Excess ABG Hemoglobin ABG Oxyhemoglobin ABG Sodium ABG Potassium ABG Chloride ABG Glucose Oxyhemoglobin Carboxyhemoglobin Sodium Potassium Chloride Carbon Dioxide BUN Creatinine Glucose POC Glucose 248 H 199 H Hemoglobin A1c 6.3 H Lactic Acid Calcium Phosphorus Magnesium Ferritin Total Bilirubin AST ALT Lactate Dehydrogenase C-Reactive Protein Albumin Triglycerides Arterial Blood Glucose Arterial Blood Ionized Calcium Urine Creatinine Coronavirus (PCR) Crossmatch 02/02/21 02/03/21 02/03/21 23:31 03:12 04:10 WBC RBC 3.06 L Hgb 9.7 L Hct 30.4 L MCV 99 H MCH MCHC RDW 15.3 H Plt Count Lymph % (Auto) 6.1 L Lymph # (Auto) 0.5 L Seg Neutrophils % 86.1 H Seg Neuts % (Manual) Lymphocytes % (Manual) Monocytes % (Manual) Nucleated RBC % Seg Neutrophils # Seg Neutrophils # Man Lymphocytes # (Manual) Monocytes # (Manual) Eosinophils # (Manual) INR D-Dimer ABG pH 7.199 L POC ABG pCO2 48.3 H POC ABG pO2 68.3 L ABG pO2 ABG HCO3 ABG O2 Saturation ABG Base Excess ABG Hemoglobin 10.2 L ABG Oxyhemoglobin 89.2 L ABG Sodium 155.0 H ABG Potassium 4.6 H ABG Chloride 121.0 H ABG Glucose 166 H Oxyhemoglobin Carboxyhemoglobin 0.3 L Sodium Potassium Chloride Carbon Dioxide BUN Creatinine Glucose POC Glucose 200 H Hemoglobin A1c Lactic Acid Calcium Phosphorus Magnesium Ferritin Total Bilirubin AST ALT Lactate Dehydrogenase C-Reactive Protein Albumin Triglycerides Arterial Blood Glucose 166 H Arterial Blood Ionized Calcium 4.1 L Urine Creatinine Coronavirus (PCR) Crossmatch 02/03/21 02/03/21 02/03/21 04:10 05:34 11:51 WBC RBC Hgb Hct MCV MCH MCHC RDW Plt Count Lymph % (Auto) Lymph # (Auto) Seg Neutrophils % Seg Neuts % (Manual) Lymphocytes % (Manual) Monocytes % (Manual) Nucleated RBC % Seg Neutrophils # Seg Neutrophils # Man Lymphocytes # (Manual) Monocytes # (Manual) Eosinophils # (Manual) INR D-Dimer ABG pH POC ABG pCO2 POC ABG pO2 ABG pO2 ABG HCO3 ABG O2 Saturation ABG Base Excess ABG Hemoglobin ABG Oxyhemoglobin ABG Sodium ABG Potassium ABG Chloride ABG Glucose Oxyhemoglobin Carboxyhemoglobin Sodium 154 H D Potassium Chloride 116.7 H Carbon Dioxide 20 L BUN 130 H Creatinine 9.2 H D Glucose 160 H POC Glucose 130 H 154 H Hemoglobin A1c Lactic Acid Calcium 6.7 L Phosphorus 8.60 H Magnesium Ferritin Total Bilirubin AST ALT Lactate Dehydrogenase C-Reactive Protein Albumin Triglycerides Arterial Blood Glucose Arterial Blood Ionized Calcium Urine Creatinine Coronavirus (PCR) Crossmatch 02/03/21 02/03/21 02/04/21 16:49 23:22 03:48 WBC RBC Hgb Hct MCV MCH MCHC RDW Plt Count Lymph % (Auto) Lymph # (Auto) Seg Neutrophils % Seg Neuts % (Manual) Lymphocytes % (Manual) Monocytes % (Manual) Nucleated RBC % Seg Neutrophils # Seg Neutrophils # Man Lymphocytes # (Manual) Monocytes # (Manual) Eosinophils # (Manual) INR D-Dimer ABG pH 7.201 L POC ABG pCO2 54.5 H POC ABG pO2 74.0 L ABG pO2 ABG HCO3 ABG O2 Saturation ABG Base Excess ABG Hemoglobin 9.7 L ABG Oxyhemoglobin 91.1 L ABG Sodium 146.2 H ABG Potassium ABG Chloride 114.0 H ABG Glucose 155 H Oxyhemoglobin Carboxyhemoglobin Sodium Potassium Chloride Carbon Dioxide BUN Creatinine Glucose POC Glucose 164 H 152 H Hemoglobin A1c Lactic Acid Calcium Phosphorus Magnesium Ferritin Total Bilirubin AST ALT Lactate Dehydrogenase C-Reactive Protein Albumin Triglycerides Arterial Blood Glucose 155 H Arterial Blood Ionized Calcium 3.9 L Urine Creatinine Coronavirus (PCR) Crossmatch 02/04/21 02/04/21 02/04/21 04:45 04:45 04:45 WBC RBC 2.75 L Hgb 9.1 L Hct 26.9 L MCV 98 H MCH 33 H MCHC RDW Plt Count Lymph % (Auto) 6.8 L Lymph # (Auto) 0.5 L Seg Neutrophils % 87.2 H Seg Neuts % (Manual) Lymphocytes % (Manual) Monocytes % (Manual) Nucleated RBC % Seg Neutrophils # Seg Neutrophils # Man Lymphocytes # (Manual) Monocytes # (Manual) Eosinophils # (Manual) INR D-Dimer ABG pH POC ABG pCO2 POC ABG pO2 ABG pO2 ABG HCO3 ABG O2 Saturation ABG Base Excess ABG Hemoglobin ABG Oxyhemoglobin ABG Sodium ABG Potassium ABG Chloride ABG Glucose Oxyhemoglobin Carboxyhemoglobin Sodium 149 H Potassium Chloride 111.5 H Carbon Dioxide BUN 99 H Creatinine 8.5 H Glucose 139 H POC Glucose Hemoglobin A1c Lactic Acid Calcium 6.8 L Phosphorus 8.40 H Magnesium Ferritin Total Bilirubin AST ALT Lactate Dehydrogenase C-Reactive Protein Albumin Triglycerides Arterial Blood Glucose Arterial Blood Ionized Calcium Urine Creatinine Coronavirus (PCR) Crossmatch 02/04/21 02/04/21 02/04/21 06:05 11:44 18:00 WBC RBC Hgb Hct MCV MCH MCHC RDW Plt Count Lymph % (Auto) Lymph # (Auto) Seg Neutrophils % Seg Neuts % (Manual) Lymphocytes % (Manual) Monocytes % (Manual) Nucleated RBC % Seg Neutrophils # Seg Neutrophils # Man Lymphocytes # (Manual) Monocytes # (Manual) Eosinophils # (Manual) INR D-Dimer ABG pH POC ABG pCO2 POC ABG pO2 ABG pO2 ABG HCO3 ABG O2 Saturation ABG Base Excess ABG Hemoglobin ABG Oxyhemoglobin ABG Sodium ABG Potassium ABG Chloride ABG Glucose Oxyhemoglobin Carboxyhemoglobin Sodium Potassium Chloride Carbon Dioxide BUN Creatinine Glucose POC Glucose 138 H 129 H 163 H Hemoglobin A1c Lactic Acid Calcium Phosphorus Magnesium Ferritin Total Bilirubin AST ALT Lactate Dehydrogenase C-Reactive Protein Albumin Triglycerides Arterial Blood Glucose Arterial Blood Ionized Calcium Urine Creatinine Coronavirus (PCR) Crossmatch 02/04/21 02/05/21 02/05/21 23:48 01:50 01:50 WBC RBC 2.43 L Hgb 8.3 L Hct 23.6 L MCV 97 H MCH 34 H MCHC 35 H RDW Plt Count 137 L Lymph % (Auto) 8.4 L Lymph # (Auto) 0.6 L Seg Neutrophils % 86.1 H Seg Neuts % (Manual) Lymphocytes % (Manual) Monocytes % (Manual) Nucleated RBC % Seg Neutrophils # Seg Neutrophils # Man Lymphocytes # (Manual) Monocytes # (Manual) Eosinophils # (Manual) INR D-Dimer ABG pH POC ABG pCO2 POC ABG pO2 ABG pO2 ABG HCO3 ABG O2 Saturation ABG Base Excess ABG Hemoglobin ABG Oxyhemoglobin ABG Sodium ABG Potassium ABG Chloride ABG Glucose Oxyhemoglobin Carboxyhemoglobin Sodium Potassium Chloride Carbon Dioxide BUN Creatinine Glucose POC Glucose 157 H Hemoglobin A1c Lactic Acid Calcium Phosphorus 5.60 H D Magnesium Ferritin Total Bilirubin AST ALT Lactate Dehydrogenase C-Reactive Protein Albumin Triglycerides Arterial Blood Glucose Arterial Blood Ionized Calcium Urine Creatinine Coronavirus (PCR) Crossmatch 02/05/21 02/05/21 02/05/21 03:44 05:27 09:15 WBC RBC Hgb Hct MCV MCH MCHC RDW Plt Count Lymph % (Auto) Lymph # (Auto) Seg Neutrophils % Seg Neuts % (Manual) Lymphocytes % (Manual) Monocytes % (Manual) Nucleated RBC % Seg Neutrophils # Seg Neutrophils # Man Lymphocytes # (Manual) Monocytes # (Manual) Eosinophils # (Manual) INR D-Dimer ABG pH 7.202 L POC ABG pCO2 63.7 H POC ABG pO2 69.0 L ABG pO2 ABG HCO3 ABG O2 Saturation ABG Base Excess ABG Hemoglobin 9.4 L ABG Oxyhemoglobin ABG Sodium ABG Potassium ABG Chloride 108.0 H ABG Glucose 186 H Oxyhemoglobin Carboxyhemoglobin Sodium Potassium Chloride Carbon Dioxide BUN 78 H Creatinine 8.0 H Glucose 163 H POC Glucose 157 H Hemoglobin A1c Lactic Acid Calcium 6.3 L Phosphorus Magnesium Ferritin Total Bilirubin AST ALT Lactate Dehydrogenase C-Reactive Protein Albumin Triglycerides Arterial Blood Glucose 186 H Arterial Blood Ionized Calcium 3.9 L Urine Creatinine Coronavirus (PCR) Crossmatch 02/05/21 02/05/21 02/05/21 11:47 17:39 23:40 WBC RBC Hgb Hct MCV MCH MCHC RDW Plt Count Lymph % (Auto) Lymph # (Auto) Seg Neutrophils % Seg Neuts % (Manual) Lymphocytes % (Manual) Monocytes % (Manual) Nucleated RBC % Seg Neutrophils # Seg Neutrophils # Man Lymphocytes # (Manual) Monocytes # (Manual) Eosinophils # (Manual) INR D-Dimer ABG pH 7.273 L POC ABG pCO2 62.1 H POC ABG pO2 72.0 L ABG pO2 ABG HCO3 ABG O2 Saturation ABG Base Excess ABG Hemoglobin 9.1 L ABG Oxyhemoglobin 91.3 L ABG Sodium ABG Potassium 3.1 L ABG Chloride ABG Glucose 125 H Oxyhemoglobin Carboxyhemoglobin Sodium Potassium Chloride Carbon Dioxide BUN Creatinine Glucose POC Glucose 126 H 126 H Hemoglobin A1c Lactic Acid Calcium Phosphorus Magnesium Ferritin Total Bilirubin AST ALT Lactate Dehydrogenase C-Reactive Protein Albumin Triglycerides Arterial Blood Glucose 125 H Arterial Blood Ionized Calcium 4.0 L Urine Creatinine Coronavirus (PCR) Crossmatch 02/06/21 02/06/21 02/06/21 04:30 04:57 09:45 WBC RBC Hgb Hct MCV MCH MCHC RDW Plt Count Lymph % (Auto) Lymph # (Auto) Seg Neutrophils % Seg Neuts % (Manual) Lymphocytes % (Manual) Monocytes % (Manual) Nucleated RBC % Seg Neutrophils # Seg Neutrophils # Man Lymphocytes # (Manual) Monocytes # (Manual) Eosinophils # (Manual) INR D-Dimer ABG pH 7.159 L 7.138 L* POC ABG pCO2 76.3 H POC ABG pO2 66.9 L ABG pO2 ABG HCO3 ABG O2 Saturation 93.4 L ABG Base Excess -6.0 L ABG Hemoglobin 11.2 L 11.7 L ABG Oxyhemoglobin 88.2 L ABG Sodium ABG Potassium ABG Chloride ABG Glucose 134 H Oxyhemoglobin 91.2 L Carboxyhemoglobin Sodium Potassium Chloride Carbon Dioxide BUN Creatinine Glucose POC Glucose 124 H Hemoglobin A1c Lactic Acid Calcium Phosphorus Magnesium Ferritin Total Bilirubin AST ALT Lactate Dehydrogenase C-Reactive Protein Albumin Triglycerides Arterial Blood Glucose 134 H Arterial Blood Ionized Calcium 3.9 L Urine Creatinine Coronavirus (PCR) Crossmatch 02/06/21 02/06/21 02/06/21 11:11 17:00 17:00 WBC RBC Hgb Hct MCV MCH MCHC RDW Plt Count Lymph % (Auto) Lymph # (Auto) Seg Neutrophils % Seg Neuts % (Manual) Lymphocytes % (Manual) Monocytes % (Manual) Nucleated RBC % Seg Neutrophils # Seg Neutrophils # Man Lymphocytes # (Manual) Monocytes # (Manual) Eosinophils # (Manual) INR D-Dimer ABG pH 7.158 L* POC ABG pCO2 POC ABG pO2 ABG pO2 109.8 H ABG HCO3 28.7 H ABG O2 Saturation ABG Base Excess -2.5 L ABG Hemoglobin ABG Oxyhemoglobin ABG Sodium ABG Potassium ABG Chloride ABG Glucose Oxyhemoglobin 94.5 L Carboxyhemoglobin Sodium Potassium Chloride Carbon Dioxide BUN Creatinine Glucose POC Glucose 120 H Hemoglobin A1c Lactic Acid Calcium Phosphorus Magnesium Ferritin Total Bilirubin AST ALT Lactate Dehydrogenase C-Reactive Protein Albumin Triglycerides 503 H Arterial Blood Glucose Arterial Blood Ionized Calcium Urine Creatinine Coronavirus (PCR) Crossmatch 02/06/21 02/06/21 02/06/21 17:28 20:16 Unknown WBC 13.5 H RBC 2.98 L Hgb 9.3 L Hct 28.6 L MCV 96 H MCH MCHC RDW Plt Count Lymph % (Auto) Lymph # (Auto) Seg Neutrophils % Seg Neuts % (Manual) 87.0 H Lymphocytes % (Manual) 7.0 L Monocytes % (Manual) Nucleated RBC % Seg Neutrophils # Seg Neutrophils # Man 11.7 H Lymphocytes # (Manual) 0.9 L Monocytes # (Manual) Eosinophils # (Manual) 0.5 H INR D-Dimer ABG pH POC ABG pCO2 POC ABG pO2 ABG pO2 ABG HCO3 ABG O2 Saturation ABG Base Excess ABG Hemoglobin ABG Oxyhemoglobin ABG Sodium ABG Potassium ABG Chloride ABG Glucose Oxyhemoglobin Carboxyhemoglobin Sodium Potassium Chloride Carbon Dioxide BUN Creatinine Glucose POC Glucose 147 H 164 H Hemoglobin A1c Lactic Acid Calcium Phosphorus Magnesium Ferritin Total Bilirubin AST ALT Lactate Dehydrogenase C-Reactive Protein Albumin Triglycerides Arterial Blood Glucose Arterial Blood Ionized Calcium Urine Creatinine Coronavirus (PCR) Crossmatch 02/06/21 02/07/21 02/07/21 Unknown 01:21 04:00 WBC 12.0 H RBC 2.61 L Hgb 8.2 L Hct 24.5 L MCV MCH MCHC RDW Plt Count Lymph % (Auto) 8.9 L Lymph # (Auto) 1.1 L Seg Neutrophils % 86.3 H Seg Neuts % (Manual) Lymphocytes % (Manual) Monocytes % (Manual) Nucleated RBC % Seg Neutrophils # 10.3 H Seg Neutrophils # Man Lymphocytes # (Manual) Monocytes # (Manual) Eosinophils # (Manual) INR D-Dimer ABG pH POC ABG pCO2 POC ABG pO2 ABG pO2 ABG HCO3 ABG O2 Saturation ABG Base Excess ABG Hemoglobin ABG Oxyhemoglobin ABG Sodium ABG Potassium ABG Chloride ABG Glucose Oxyhemoglobin Carboxyhemoglobin Sodium Potassium 3.5 L Chloride Carbon Dioxide BUN 58 H Creatinine 6.6 H Glucose 107 H POC Glucose 173 H Hemoglobin A1c Lactic Acid Calcium 6.7 L Phosphorus 8.00 H D Magnesium Ferritin Total Bilirubin AST ALT Lactate Dehydrogenase C-Reactive Protein Albumin Triglycerides Arterial Blood Glucose Arterial Blood Ionized Calcium Urine Creatinine Coronavirus (PCR) Crossmatch 02/07/21 02/07/21 02/07/21 04:00 04:45 11:49 WBC RBC Hgb Hct MCV MCH MCHC RDW Plt Count Lymph % (Auto) Lymph # (Auto) Seg Neutrophils % Seg Neuts % (Manual) Lymphocytes % (Manual) Monocytes % (Manual) Nucleated RBC % Seg Neutrophils # Seg Neutrophils # Man Lymphocytes # (Manual) Monocytes # (Manual) Eosinophils # (Manual) INR D-Dimer ABG pH 7.287 L POC ABG pCO2 64.8 H POC ABG pO2 74.0 L ABG pO2 ABG HCO3 ABG O2 Saturation ABG Base Excess ABG Hemoglobin 9.1 L ABG Oxyhemoglobin 92.0 L ABG Sodium ABG Potassium 2.8 L ABG Chloride ABG Glucose 226 H Oxyhemoglobin Carboxyhemoglobin Sodium Potassium Chloride Carbon Dioxide BUN Creatinine Glucose POC Glucose 170 H Hemoglobin A1c Lactic Acid Calcium Phosphorus 5.50 H D Magnesium Ferritin Total Bilirubin AST ALT Lactate Dehydrogenase C-Reactive Protein Albumin Triglycerides Arterial Blood Glucose 226 H Arterial Blood Ionized Calcium 3.7 L Urine Creatinine Coronavirus (PCR) Crossmatch 02/07/21 02/07/21 02/07/21 13:48 17:45 23:02 WBC RBC Hgb Hct MCV MCH MCHC RDW Plt Count Lymph % (Auto) Lymph # (Auto) Seg Neutrophils % Seg Neuts % (Manual) Lymphocytes % (Manual) Monocytes % (Manual) Nucleated RBC % Seg Neutrophils # Seg Neutrophils # Man Lymphocytes # (Manual) Monocytes # (Manual) Eosinophils # (Manual) INR D-Dimer ABG pH POC ABG pCO2 POC ABG pO2 ABG pO2 ABG HCO3 ABG O2 Saturation ABG Base Excess ABG Hemoglobin ABG Oxyhemoglobin ABG Sodium ABG Potassium ABG Chloride ABG Glucose Oxyhemoglobin Carboxyhemoglobin Sodium 136 L Potassium 2.6 L* D Chloride 95.1 L Carbon Dioxide 33 H D BUN 30 H Creatinine 3.6 H Glucose 184 H POC Glucose 172 H 172 H Hemoglobin A1c Lactic Acid Calcium 6.9 L Phosphorus Magnesium Ferritin Total Bilirubin AST ALT Lactate Dehydrogenase C-Reactive Protein Albumin Triglycerides Arterial Blood Glucose Arterial Blood Ionized Calcium Urine Creatinine Coronavirus (PCR) Crossmatch 02/08/21 02/08/21 02/08/21 05:22 06:00 06:00 WBC RBC 2.21 L Hgb 7.2 L Hct 21.0 L MCV 95 H MCH MCHC RDW Plt Count Lymph % (Auto) Lymph # (Auto) Seg Neutrophils % Seg Neuts % (Manual) 87.0 H Lymphocytes % (Manual) 4.0 L Monocytes % (Manual) Nucleated RBC % Seg Neutrophils # Seg Neutrophils # Man 8.5 H Lymphocytes # (Manual) 0.4 L Monocytes # (Manual) Eosinophils # (Manual) INR D-Dimer ABG pH POC ABG pCO2 POC ABG pO2 ABG pO2 ABG HCO3 ABG O2 Saturation ABG Base Excess ABG Hemoglobin ABG Oxyhemoglobin ABG Sodium ABG Potassium ABG Chloride ABG Glucose Oxyhemoglobin Carboxyhemoglobin Sodium 136 L Potassium 2.4 L* Chloride 93.1 L Carbon Dioxide 36 H BUN 43 H Creatinine 5.4 H Glucose 167 H POC Glucose 162 H Hemoglobin A1c Lactic Acid Calcium 6.3 L Phosphorus Magnesium Ferritin Total Bilirubin AST ALT Lactate Dehydrogenase C-Reactive Protein Albumin Triglycerides Arterial Blood Glucose Arterial Blood Ionized Calcium Urine Creatinine Coronavirus (PCR) Crossmatch 02/08/21 02/08/21 02/08/21 11:44 17:53 18:56 WBC RBC Hgb Hct MCV MCH MCHC RDW Plt Count Lymph % (Auto) Lymph # (Auto) Seg Neutrophils % Seg Neuts % (Manual) Lymphocytes % (Manual) Monocytes % (Manual) Nucleated RBC % Seg Neutrophils # Seg Neutrophils # Man Lymphocytes # (Manual) Monocytes # (Manual) Eosinophils # (Manual) INR D-Dimer ABG pH POC ABG pCO2 POC ABG pO2 ABG pO2 ABG HCO3 ABG O2 Saturation ABG Base Excess ABG Hemoglobin ABG Oxyhemoglobin ABG Sodium ABG Potassium ABG Chloride ABG Glucose Oxyhemoglobin Carboxyhemoglobin Sodium Potassium 2.9 L* D Chloride Carbon Dioxide BUN Creatinine Glucose POC Glucose 164 H 154 H Hemoglobin A1c Lactic Acid Calcium Phosphorus Magnesium Ferritin Total Bilirubin AST ALT Lactate Dehydrogenase C-Reactive Protein Albumin Triglycerides Arterial Blood Glucose Arterial Blood Ionized Calcium Urine Creatinine Coronavirus (PCR) Crossmatch 02/08/21 02/08/21 02/09/21 23:24 23:58 03:21 WBC RBC Hgb Hct MCV MCH MCHC RDW Plt Count Lymph % (Auto) Lymph # (Auto) Seg Neutrophils % Seg Neuts % (Manual) Lymphocytes % (Manual) Monocytes % (Manual) Nucleated RBC % Seg Neutrophils # Seg Neutrophils # Man Lymphocytes # (Manual) Monocytes # (Manual) Eosinophils # (Manual) INR D-Dimer ABG pH 7.319 L POC ABG pCO2 63.3 H 68.3 H POC ABG pO2 71.2 L 76.5 L ABG pO2 ABG HCO3 ABG O2 Saturation ABG Base Excess ABG Hemoglobin 8.2 L 7.0 L ABG Oxyhemoglobin 91.8 L 92.2 L ABG Sodium 134.6 L 133.0 L ABG Potassium 2.3 L 3.1 L ABG Chloride 96.0 L 95.0 L ABG Glucose 184 H 154 H Oxyhemoglobin Carboxyhemoglobin Sodium Potassium Chloride Carbon Dioxide BUN Creatinine Glucose POC Glucose 152 H Hemoglobin A1c Lactic Acid Calcium Phosphorus Magnesium Ferritin Total Bilirubin AST ALT Lactate Dehydrogenase C-Reactive Protein Albumin Triglycerides Arterial Blood Glucose 184 H 154 H Arterial Blood Ionized Calcium 3.6 L 3.5 L Urine Creatinine Coronavirus (PCR) Crossmatch 02/09/21 02/09/21 02/09/21 05:10 05:10 06:04 WBC RBC 2.14 L Hgb 7.0 L Hct 20.5 L MCV 96 H MCH 33 H MCHC RDW Plt Count Lymph % (Auto) Lymph # (Auto) Seg Neutrophils % Seg Neuts % (Manual) 82.0 H Lymphocytes % (Manual) 9.0 L Monocytes % (Manual) Nucleated RBC % 1.0 H Seg Neutrophils # Seg Neutrophils # Man 8.9 H Lymphocytes # (Manual) 1.0 L Monocytes # (Manual) Eosinophils # (Manual) INR D-Dimer ABG pH POC ABG pCO2 POC ABG pO2 ABG pO2 ABG HCO3 ABG O2 Saturation ABG Base Excess ABG Hemoglobin ABG Oxyhemoglobin ABG Sodium ABG Potassium ABG Chloride ABG Glucose Oxyhemoglobin Carboxyhemoglobin Sodium 135 L Potassium 3.2 L Chloride 91.0 L Carbon Dioxide 32 H BUN 54 H Creatinine 6.6 H Glucose 163 H POC Glucose 149 H Hemoglobin A1c Lactic Acid Calcium 6.2 L Phosphorus Magnesium Ferritin Total Bilirubin AST ALT Lactate Dehydrogenase C-Reactive Protein Albumin Triglycerides Arterial Blood Glucose Arterial Blood Ionized Calcium Urine Creatinine Coronavirus (PCR) Crossmatch 02/09/21 02/09/21 02/09/21 12:02 13:32 13:40 WBC RBC Hgb Hct MCV MCH MCHC RDW Plt Count Lymph % (Auto) Lymph # (Auto) Seg Neutrophils % Seg Neuts % (Manual) Lymphocytes % (Manual) Monocytes % (Manual) Nucleated RBC % Seg Neutrophils # Seg Neutrophils # Man Lymphocytes # (Manual) Monocytes # (Manual) Eosinophils # (Manual) INR D-Dimer ABG pH POC ABG pCO2 POC ABG pO2 ABG pO2 ABG HCO3 ABG O2 Saturation ABG Base Excess ABG Hemoglobin ABG Oxyhemoglobin ABG Sodium ABG Potassium ABG Chloride ABG Glucose Oxyhemoglobin Carboxyhemoglobin Sodium Potassium Chloride Carbon Dioxide BUN Creatinine Glucose POC Glucose 147 H Hemoglobin A1c Lactic Acid Calcium Phosphorus Magnesium Ferritin Total Bilirubin AST ALT Lactate Dehydrogenase C-Reactive Protein Albumin Triglycerides 250 H Arterial Blood Glucose Arterial Blood Ionized Calcium Urine Creatinine Coronavirus (PCR) Crossmatch See Detail 02/09/21 02/09/21 02/10/21 18:06 23:42 04:00 WBC RBC Hgb Hct MCV MCH MCHC RDW Plt Count Lymph % (Auto) Lymph # (Auto) Seg Neutrophils % Seg Neuts % (Manual) Lymphocytes % (Manual) Monocytes % (Manual) Nucleated RBC % Seg Neutrophils # Seg Neutrophils # Man Lymphocytes # (Manual) Monocytes # (Manual) Eosinophils # (Manual) INR D-Dimer ABG pH POC ABG pCO2 65.8 H POC ABG pO2 68.0 L ABG pO2 ABG HCO3 ABG O2 Saturation ABG Base Excess ABG Hemoglobin 8.3 L ABG Oxyhemoglobin ABG Sodium 132.4 L ABG Potassium 2.9 L ABG Chloride 92.0 L ABG Glucose 174 H Oxyhemoglobin Carboxyhemoglobin Sodium Potassium Chloride Carbon Dioxide BUN Creatinine Glucose POC Glucose 152 H 147 H Hemoglobin A1c Lactic Acid Calcium Phosphorus Magnesium Ferritin Total Bilirubin AST ALT Lactate Dehydrogenase C-Reactive Protein Albumin Triglycerides Arterial Blood Glucose 174 H Arterial Blood Ionized Calcium 3.4 L Urine Creatinine Coronavirus (PCR) Crossmatch 02/10/21 02/10/21 02/10/21 05:32 11:29 14:08 WBC 12.5 H RBC 2.14 L Hgb 6.6 L Hct 20.2 L MCV MCH MCHC RDW Plt Count Lymph % (Auto) Lymph # (Auto) Seg Neutrophils % Seg Neuts % (Manual) Lymphocytes % (Manual) Monocytes % (Manual) Nucleated RBC % Seg Neutrophils # Seg Neutrophils # Man Lymphocytes # (Manual) Monocytes # (Manual) Eosinophils # (Manual) INR D-Dimer ABG pH POC ABG pCO2 POC ABG pO2 ABG pO2 ABG HCO3 ABG O2 Saturation ABG Base Excess ABG Hemoglobin ABG Oxyhemoglobin ABG Sodium ABG Potassium ABG Chloride ABG Glucose Oxyhemoglobin Carboxyhemoglobin Sodium Potassium Chloride Carbon Dioxide BUN Creatinine Glucose POC Glucose 167 H 147 H Hemoglobin A1c Lactic Acid Calcium Phosphorus Magnesium Ferritin Total Bilirubin AST ALT Lactate Dehydrogenase C-Reactive Protein Albumin Triglycerides Arterial Blood Glucose Arterial Blood Ionized Calcium Urine Creatinine Coronavirus (PCR) Crossmatch 02/10/21 02/10/21 02/10/21 14:08 18:11 22:32 WBC RBC Hgb 6.4 L Hct 19.1 L* MCV MCH MCHC RDW Plt Count Lymph % (Auto) Lymph # (Auto) Seg Neutrophils % Seg Neuts % (Manual) Lymphocytes % (Manual) Monocytes % (Manual) Nucleated RBC % Seg Neutrophils # Seg Neutrophils # Man Lymphocytes # (Manual) Monocytes # (Manual) Eosinophils # (Manual) INR D-Dimer ABG pH POC ABG pCO2 POC ABG pO2 ABG pO2 ABG HCO3 ABG O2 Saturation ABG Base Excess ABG Hemoglobin ABG Oxyhemoglobin ABG Sodium ABG Potassium ABG Chloride ABG Glucose Oxyhemoglobin Carboxyhemoglobin Sodium 136 L Potassium 2.9 L* Chloride 90.2 L Carbon Dioxide 33 H BUN 42 H Creatinine 7.5 H Glucose 155 H POC Glucose 173 H Hemoglobin A1c Lactic Acid Calcium 6.1 L Phosphorus Magnesium Ferritin Total Bilirubin AST ALT Lactate Dehydrogenase C-Reactive Protein Albumin Triglycerides Arterial Blood Glucose Arterial Blood Ionized Calcium Urine Creatinine Coronavirus (PCR) Crossmatch 02/11/21 02/11/21 02/11/21 00:28 04:05 04:30 WBC RBC Hgb Hct MCV MCH MCHC RDW Plt Count Lymph % (Auto) Lymph # (Auto) Seg Neutrophils % Seg Neuts % (Manual) Lymphocytes % (Manual) Monocytes % (Manual) Nucleated RBC % Seg Neutrophils # Seg Neutrophils # Man Lymphocytes # (Manual) Monocytes # (Manual) Eosinophils # (Manual) INR D-Dimer ABG pH 7.307 L POC ABG pCO2 72.2 H POC ABG pO2 72.3 L ABG pO2 ABG HCO3 ABG O2 Saturation ABG Base Excess ABG Hemoglobin 8.2 L ABG Oxyhemoglobin ABG Sodium 132.3 L ABG Potassium 3.2 L ABG Chloride 91.0 L ABG Glucose 197 H Oxyhemoglobin Carboxyhemoglobin Sodium 135 L Potassium 3.3 L Chloride 87.1 L Carbon Dioxide 36 H BUN 71 H Creatinine 7.9 H Glucose 263 H POC Glucose 192 H Hemoglobin A1c Lactic Acid Calcium 6.2 L Phosphorus Magnesium Ferritin Total Bilirubin AST ALT Lactate Dehydrogenase C-Reactive Protein Albumin Triglycerides Arterial Blood Glucose 197 H Arterial Blood Ionized Calcium 3.3 L Urine Creatinine Coronavirus (PCR) Crossmatch 02/11/21 02/11/21 02/11/21 04:30 05:47 08:27 WBC RBC 2.22 L Hgb 7.2 L Hct 21.0 L MCV MCH MCHC RDW Plt Count Lymph % (Auto) 8.7 L Lymph # (Auto) 0.9 L Seg Neutrophils % 85.5 H Seg Neuts % (Manual) Lymphocytes % (Manual) Monocytes % (Manual) Nucleated RBC % Seg Neutrophils # 9.2 H Seg Neutrophils # Man Lymphocytes # (Manual) Monocytes # (Manual) Eosinophils # (Manual) INR 1.17 H D-Dimer 1930.92 H ABG pH POC ABG pCO2 POC ABG pO2 ABG pO2 ABG HCO3 ABG O2 Saturation ABG Base Excess ABG Hemoglobin ABG Oxyhemoglobin ABG Sodium ABG Potassium ABG Chloride ABG Glucose Oxyhemoglobin Carboxyhemoglobin Sodium Potassium Chloride Carbon Dioxide BUN Creatinine Glucose POC Glucose 189 H Hemoglobin A1c Lactic Acid Calcium Phosphorus Magnesium Ferritin Total Bilirubin AST ALT Lactate Dehydrogenase C-Reactive Protein Albumin Triglycerides Arterial Blood Glucose Arterial Blood Ionized Calcium Urine Creatinine Coronavirus (PCR) Crossmatch 02/11/21 02/11/21 02/11/21 09:00 09:00 13:18 WBC RBC Hgb Hct MCV MCH MCHC RDW Plt Count Lymph % (Auto) Lymph # (Auto) Seg Neutrophils % Seg Neuts % (Manual) Lymphocytes % (Manual) Monocytes % (Manual) Nucleated RBC % Seg Neutrophils # Seg Neutrophils # Man Lymphocytes # (Manual) Monocytes # (Manual) Eosinophils # (Manual) INR D-Dimer ABG pH POC ABG pCO2 POC ABG pO2 ABG pO2 ABG HCO3 ABG O2 Saturation ABG Base Excess ABG Hemoglobin ABG Oxyhemoglobin ABG Sodium ABG Potassium ABG Chloride ABG Glucose Oxyhemoglobin Carboxyhemoglobin Sodium Potassium Chloride Carbon Dioxide BUN Creatinine Glucose 126 H POC Glucose 160 H Hemoglobin A1c Lactic Acid Calcium Phosphorus Magnesium Ferritin 1253.0 H Total Bilirubin AST ALT Lactate Dehydrogenase 649 H C-Reactive Protein 12.60 H Albumin Triglycerides Arterial Blood Glucose Arterial Blood Ionized Calcium Urine Creatinine Coronavirus (PCR) Crossmatch 02/11/21 02/11/21 02/11/21 14:30 16:59 22:34 WBC RBC Hgb 7.1 L 6.7 L Hct 20.5 L 19.9 L* MCV MCH MCHC RDW Plt Count Lymph % (Auto) Lymph # (Auto) Seg Neutrophils % Seg Neuts % (Manual) Lymphocytes % (Manual) Monocytes % (Manual) Nucleated RBC % Seg Neutrophils # Seg Neutrophils # Man Lymphocytes # (Manual) Monocytes # (Manual) Eosinophils # (Manual) INR D-Dimer ABG pH POC ABG pCO2 POC ABG pO2 ABG pO2 ABG HCO3 ABG O2 Saturation ABG Base Excess ABG Hemoglobin ABG Oxyhemoglobin ABG Sodium ABG Potassium ABG Chloride ABG Glucose Oxyhemoglobin Carboxyhemoglobin Sodium Potassium Chloride Carbon Dioxide BUN Creatinine Glucose POC Glucose 151 H Hemoglobin A1c Lactic Acid Calcium Phosphorus Magnesium Ferritin Total Bilirubin AST ALT Lactate Dehydrogenase C-Reactive Protein Albumin Triglycerides Arterial Blood Glucose Arterial Blood Ionized Calcium Urine Creatinine Coronavirus (PCR) Crossmatch 02/11/21 02/12/21 02/12/21 23:42 04:41 05:19 WBC RBC Hgb Hct MCV MCH MCHC RDW Plt Count Lymph % (Auto) Lymph # (Auto) Seg Neutrophils % Seg Neuts % (Manual) Lymphocytes % (Manual) Monocytes % (Manual) Nucleated RBC % Seg Neutrophils # Seg Neutrophils # Man Lymphocytes # (Manual) Monocytes # (Manual) Eosinophils # (Manual) INR D-Dimer ABG pH POC ABG pCO2 POC ABG pO2 ABG pO2 69.0 L ABG HCO3 32.5 H ABG O2 Saturation ABG Base Excess 7.7 H ABG Hemoglobin 5.1 L ABG Oxyhemoglobin ABG Sodium ABG Potassium ABG Chloride ABG Glucose Oxyhemoglobin 94.7 L Carboxyhemoglobin Sodium Potassium Chloride Carbon Dioxide BUN Creatinine Glucose POC Glucose 165 H 153 H Hemoglobin A1c Lactic Acid Calcium Phosphorus Magnesium Ferritin Total Bilirubin AST ALT Lactate Dehydrogenase C-Reactive Protein Albumin Triglycerides Arterial Blood Glucose Arterial Blood Ionized Calcium Urine Creatinine Coronavirus (PCR) Crossmatch 02/12/21 02/12/21 02/12/21 06:35 06:35 08:40 WBC RBC 2.21 L Hgb 7.2 L Hct 20.7 L MCV MCH 33 H MCHC 35 H RDW Plt Count Lymph % (Auto) Lymph # (Auto) Seg Neutrophils % Seg Neuts % (Manual) Lymphocytes % (Manual) Monocytes % (Manual) Nucleated RBC % Seg Neutrophils # Seg Neutrophils # Man Lymphocytes # (Manual) Monocytes # (Manual) Eosinophils # (Manual) INR D-Dimer ABG pH POC ABG pCO2 POC ABG pO2 ABG pO2 ABG HCO3 ABG O2 Saturation ABG Base Excess ABG Hemoglobin ABG Oxyhemoglobin ABG Sodium ABG Potassium ABG Chloride ABG Glucose Oxyhemoglobin Carboxyhemoglobin Sodium 135 L Potassium 3.4 L Chloride 91.8 L Carbon Dioxide 36 H BUN 57 H Creatinine 6.8 H Glucose 163 H POC Glucose Hemoglobin A1c Lactic Acid Calcium 7.0 L Phosphorus Magnesium 1.60 L Ferritin Total Bilirubin AST ALT Lactate Dehydrogenase C-Reactive Protein Albumin Triglycerides Arterial Blood Glucose Arterial Blood Ionized Calcium Urine Creatinine Coronavirus (PCR) Crossmatch 02/12/21 02/12/21 02/12/21 10:45 12:04 17:19 WBC RBC Hgb Hct MCV MCH MCHC RDW Plt Count Lymph % (Auto) Lymph # (Auto) Seg Neutrophils % Seg Neuts % (Manual) Lymphocytes % (Manual) Monocytes % (Manual) Nucleated RBC % Seg Neutrophils # Seg Neutrophils # Man Lymphocytes # (Manual) Monocytes # (Manual) Eosinophils # (Manual) INR D-Dimer ABG pH POC ABG pCO2 POC ABG pO2 ABG pO2 ABG HCO3 ABG O2 Saturation ABG Base Excess ABG Hemoglobin ABG Oxyhemoglobin ABG Sodium ABG Potassium ABG Chloride ABG Glucose Oxyhemoglobin Carboxyhemoglobin Sodium Potassium Chloride Carbon Dioxide BUN Creatinine Glucose POC Glucose 165 H 165 H Hemoglobin A1c Lactic Acid Calcium Phosphorus Magnesium Ferritin Total Bilirubin AST ALT Lactate Dehydrogenase C-Reactive Protein Albumin Triglycerides 182 H Arterial Blood Glucose Arterial Blood Ionized Calcium Urine Creatinine Coronavirus (PCR) Crossmatch 02/12/21 02/13/21 02/13/21 23:18 05:00 05:36 WBC RBC Hgb Hct MCV MCH MCHC RDW Plt Count Lymph % (Auto) Lymph # (Auto) Seg Neutrophils % Seg Neuts % (Manual) Lymphocytes % (Manual) Monocytes % (Manual) Nucleated RBC % Seg Neutrophils # Seg Neutrophils # Man Lymphocytes # (Manual) Monocytes # (Manual) Eosinophils # (Manual) INR D-Dimer ABG pH POC ABG pCO2 60.8 H POC ABG pO2 76.4 L ABG pO2 ABG HCO3 ABG O2 Saturation ABG Base Excess ABG Hemoglobin 7.4 L ABG Oxyhemoglobin ABG Sodium 133.2 L ABG Potassium 3.3 L ABG Chloride 96.0 L ABG Glucose 168 H Oxyhemoglobin Carboxyhemoglobin Sodium Potassium Chloride Carbon Dioxide BUN Creatinine Glucose POC Glucose 163 H 151 H Hemoglobin A1c Lactic Acid Calcium Phosphorus Magnesium Ferritin Total Bilirubin AST ALT Lactate Dehydrogenase C-Reactive Protein Albumin Triglycerides Arterial Blood Glucose 168 H Arterial Blood Ionized Calcium 4.3 L Urine Creatinine Coronavirus (PCR) Crossmatch 02/13/21 02/13/21 02/13/21 06:40 06:40 06:40 WBC RBC 2.19 L Hgb 7.0 L Hct 20.8 L MCV 95 H MCH MCHC RDW Plt Count Lymph % (Auto) Lymph # (Auto) Seg Neutrophils % Seg Neuts % (Manual) Lymphocytes % (Manual) Monocytes % (Manual) Nucleated RBC % Seg Neutrophils # Seg Neutrophils # Man Lymphocytes # (Manual) Monocytes # (Manual) Eosinophils # (Manual) INR D-Dimer ABG pH POC ABG pCO2 POC ABG pO2 ABG pO2 ABG HCO3 ABG O2 Saturation ABG Base Excess ABG Hemoglobin ABG Oxyhemoglobin ABG Sodium ABG Potassium ABG Chloride ABG Glucose Oxyhemoglobin Carboxyhemoglobin Sodium 135 L Potassium 3.4 L Chloride 93.0 L Carbon Dioxide 32 H BUN 46 H Creatinine 5.8 H Glucose 148 H POC Glucose Hemoglobin A1c Lactic Acid Calcium 7.9 L Phosphorus Magnesium Ferritin Total Bilirubin AST ALT Lactate Dehydrogenase C-Reactive Protein 16.80 H Albumin Triglycerides Arterial Blood Glucose Arterial Blood Ionized Calcium Urine Creatinine Coronavirus (PCR) Crossmatch 02/13/21 02/13/21 02/13/21 06:40 07:38 07:38 WBC RBC Hgb Hct MCV MCH MCHC RDW Plt Count Lymph % (Auto) Lymph # (Auto) Seg Neutrophils % Seg Neuts % (Manual) Lymphocytes % (Manual) Monocytes % (Manual) Nucleated RBC % Seg Neutrophils # Seg Neutrophils # Man Lymphocytes # (Manual) Monocytes # (Manual) Eosinophils # (Manual) INR D-Dimer 1722.16 H ABG pH POC ABG pCO2 POC ABG pO2 ABG pO2 ABG HCO3 ABG O2 Saturation ABG Base Excess ABG Hemoglobin ABG Oxyhemoglobin ABG Sodium ABG Potassium ABG Chloride ABG Glucose Oxyhemoglobin Carboxyhemoglobin Sodium Potassium Chloride Carbon Dioxide BUN Creatinine Glucose POC Glucose Hemoglobin A1c Lactic Acid Calcium Phosphorus Magnesium 1.60 L Ferritin 976.5 H Total Bilirubin AST ALT Lactate Dehydrogenase C-Reactive Protein Albumin Triglycerides Arterial Blood Glucose Arterial Blood Ionized Calcium Urine Creatinine Coronavirus (PCR) Crossmatch 02/13/21 02/13/21 02/13/21 12:24 16:57 23:32 WBC RBC Hgb Hct MCV MCH MCHC RDW Plt Count Lymph % (Auto) Lymph # (Auto) Seg Neutrophils % Seg Neuts % (Manual) Lymphocytes % (Manual) Monocytes % (Manual) Nucleated RBC % Seg Neutrophils # Seg Neutrophils # Man Lymphocytes # (Manual) Monocytes # (Manual) Eosinophils # (Manual) INR D-Dimer ABG pH POC ABG pCO2 POC ABG pO2 ABG pO2 ABG HCO3 ABG O2 Saturation ABG Base Excess ABG Hemoglobin ABG Oxyhemoglobin ABG Sodium ABG Potassium ABG Chloride ABG Glucose Oxyhemoglobin Carboxyhemoglobin Sodium Potassium Chloride Carbon Dioxide BUN Creatinine Glucose POC Glucose 141 H 156 H 161 H Hemoglobin A1c Lactic Acid Calcium Phosphorus Magnesium Ferritin Total Bilirubin AST ALT Lactate Dehydrogenase C-Reactive Protein Albumin Triglycerides Arterial Blood Glucose Arterial Blood Ionized Calcium Urine Creatinine Coronavirus (PCR) Crossmatch 02/14/21 02/14/21 02/14/21 04:00 05:41 11:00 WBC RBC 2.14 L Hgb 6.9 L Hct 20.7 L MCV 97 H MCH 33 H MCHC RDW Plt Count Lymph % (Auto) Lymph # (Auto) Seg Neutrophils % Seg Neuts % (Manual) Lymphocytes % (Manual) Monocytes % (Manual) Nucleated RBC % Seg Neutrophils # Seg Neutrophils # Man Lymphocytes # (Manual) Monocytes # (Manual) Eosinophils # (Manual) INR D-Dimer ABG pH POC ABG pCO2 POC ABG pO2 ABG pO2 ABG HCO3 ABG O2 Saturation ABG Base Excess ABG Hemoglobin ABG Oxyhemoglobin ABG Sodium ABG Potassium ABG Chloride ABG Glucose Oxyhemoglobin Carboxyhemoglobin Sodium Potassium Chloride Carbon Dioxide BUN Creatinine Glucose POC Glucose 143 H Hemoglobin A1c Lactic Acid Calcium Phosphorus Magnesium Ferritin Total Bilirubin AST ALT Lactate Dehydrogenase C-Reactive Protein Albumin Triglycerides Arterial Blood Glucose Arterial Blood Ionized Calcium Urine Creatinine Coronavirus (PCR) Crossmatch See Detail 02/14/21 02/14/21 02/14/21 11:51 18:08 23:41 WBC RBC Hgb Hct MCV MCH MCHC RDW Plt Count Lymph % (Auto) Lymph # (Auto) Seg Neutrophils % Seg Neuts % (Manual) Lymphocytes % (Manual) Monocytes % (Manual) Nucleated RBC % Seg Neutrophils # Seg Neutrophils # Man Lymphocytes # (Manual) Monocytes # (Manual) Eosinophils # (Manual) INR D-Dimer ABG pH POC ABG pCO2 POC ABG pO2 ABG pO2 ABG HCO3 ABG O2 Saturation ABG Base Excess ABG Hemoglobin ABG Oxyhemoglobin ABG Sodium ABG Potassium ABG Chloride ABG Glucose Oxyhemoglobin Carboxyhemoglobin Sodium Potassium Chloride Carbon Dioxide BUN Creatinine Glucose POC Glucose 113 H 123 H 120 H Hemoglobin A1c Lactic Acid Calcium Phosphorus Magnesium Ferritin Total Bilirubin AST ALT Lactate Dehydrogenase C-Reactive Protein Albumin Triglycerides Arterial Blood Glucose Arterial Blood Ionized Calcium Urine Creatinine Coronavirus (PCR) Crossmatch 02/14/21 02/15/21 02/15/21 Unknown 05:00 05:00 WBC RBC Hgb Hct MCV MCH MCHC RDW Plt Count Lymph % (Auto) Lymph # (Auto) Seg Neutrophils % Seg Neuts % (Manual) Lymphocytes % (Manual) Monocytes % (Manual) Nucleated RBC % Seg Neutrophils # Seg Neutrophils # Man Lymphocytes # (Manual) Monocytes # (Manual) Eosinophils # (Manual) INR D-Dimer ABG pH POC ABG pCO2 53.4 H POC ABG pO2 61.8 L ABG pO2 ABG HCO3 ABG O2 Saturation ABG Base Excess ABG Hemoglobin 7.7 L ABG Oxyhemoglobin 88.8 L ABG Sodium ABG Potassium ABG Chloride ABG Glucose 143 H Oxyhemoglobin Carboxyhemoglobin 1.6 H Sodium Potassium Chloride 96.9 L Carbon Dioxide 33 H 31 H BUN 40 H 38 H Creatinine 5.2 H 4.8 H Glucose 152 H 132 H POC Glucose Hemoglobin A1c Lactic Acid Calcium 7.9 L Phosphorus Magnesium Ferritin Total Bilirubin AST ALT Lactate Dehydrogenase C-Reactive Protein Albumin Triglycerides Arterial Blood Glucose 143 H Arterial Blood Ionized Calcium Urine Creatinine Coronavirus (PCR) Crossmatch 02/15/21 02/15/21 02/15/21 05:00 05:27 12:05 WBC RBC 2.30 L Hgb 7.1 L Hct 22.1 L MCV 96 H MCH MCHC RDW 15.7 H Plt Count Lymph % (Auto) 11.0 L Lymph # (Auto) 1.1 L Seg Neutrophils % 83.0 H Seg Neuts % (Manual) Lymphocytes % (Manual) Monocytes % (Manual) Nucleated RBC % Seg Neutrophils # 8.6 H Seg Neutrophils # Man Lymphocytes # (Manual) Monocytes # (Manual) Eosinophils # (Manual) INR D-Dimer ABG pH POC ABG pCO2 POC ABG pO2 ABG pO2 ABG HCO3 ABG O2 Saturation ABG Base Excess ABG Hemoglobin ABG Oxyhemoglobin ABG Sodium ABG Potassium ABG Chloride ABG Glucose Oxyhemoglobin Carboxyhemoglobin Sodium Potassium Chloride Carbon Dioxide BUN Creatinine Glucose POC Glucose 133 H 123 H Hemoglobin A1c Lactic Acid Calcium Phosphorus Magnesium Ferritin Total Bilirubin AST ALT Lactate Dehydrogenase C-Reactive Protein Albumin Triglycerides Arterial Blood Glucose Arterial Blood Ionized Calcium Urine Creatinine Coronavirus (PCR) Crossmatch 02/15/21 02/15/21 02/16/21 17:08 23:52 03:44 WBC RBC Hgb Hct MCV MCH MCHC RDW Plt Count Lymph % (Auto) Lymph # (Auto) Seg Neutrophils % Seg Neuts % (Manual) Lymphocytes % (Manual) Monocytes % (Manual) Nucleated RBC % Seg Neutrophils # Seg Neutrophils # Man Lymphocytes # (Manual) Monocytes # (Manual) Eosinophils # (Manual) INR D-Dimer ABG pH 7.307 L POC ABG pCO2 59.5 H POC ABG pO2 63.2 L ABG pO2 ABG HCO3 ABG O2 Saturation ABG Base Excess ABG Hemoglobin 9.3 L ABG Oxyhemoglobin ABG Sodium ABG Potassium ABG Chloride ABG Glucose 148 H Oxyhemoglobin Carboxyhemoglobin Sodium Potassium Chloride Carbon Dioxide BUN Creatinine Glucose POC Glucose 129 H 136 H Hemoglobin A1c Lactic Acid Calcium Phosphorus Magnesium Ferritin Total Bilirubin AST ALT Lactate Dehydrogenase C-Reactive Protein Albumin Triglycerides Arterial Blood Glucose 148 H Arterial Blood Ionized Calcium Urine Creatinine Coronavirus (PCR) Crossmatch 02/16/21 02/16/21 02/16/21 05:26 06:00 12:14 WBC RBC Hgb Hct MCV MCH MCHC RDW Plt Count Lymph % (Auto) Lymph # (Auto) Seg Neutrophils % Seg Neuts % (Manual) Lymphocytes % (Manual) Monocytes % (Manual) Nucleated RBC % Seg Neutrophils # Seg Neutrophils # Man Lymphocytes # (Manual) Monocytes # (Manual) Eosinophils # (Manual) INR D-Dimer ABG pH POC ABG pCO2 POC ABG pO2 ABG pO2 ABG HCO3 ABG O2 Saturation ABG Base Excess ABG Hemoglobin ABG Oxyhemoglobin ABG Sodium ABG Potassium ABG Chloride ABG Glucose Oxyhemoglobin Carboxyhemoglobin Sodium Potassium Chloride Carbon Dioxide BUN 52 H Creatinine 6.0 H Glucose 138 H POC Glucose 135 H 128 H Hemoglobin A1c Lactic Acid Calcium Phosphorus Magnesium Ferritin Total Bilirubin AST ALT Lactate Dehydrogenase C-Reactive Protein Albumin Triglycerides Arterial Blood Glucose Arterial Blood Ionized Calcium Urine Creatinine Coronavirus (PCR) Crossmatch 02/16/21 02/16/21 02/16/21 17:09 17:09 17:09 WBC RBC Hgb Hct MCV MCH MCHC RDW Plt Count Lymph % (Auto) Lymph # (Auto) Seg Neutrophils % Seg Neuts % (Manual) Lymphocytes % (Manual) Monocytes % (Manual) Nucleated RBC % Seg Neutrophils # Seg Neutrophils # Man Lymphocytes # (Manual) Monocytes # (Manual) Eosinophils # (Manual) INR D-Dimer 4256.08 H ABG pH POC ABG pCO2 POC ABG pO2 ABG pO2 ABG HCO3 ABG O2 Saturation ABG Base Excess ABG Hemoglobin ABG Oxyhemoglobin ABG Sodium ABG Potassium ABG Chloride ABG Glucose Oxyhemoglobin Carboxyhemoglobin Sodium Potassium Chloride Carbon Dioxide BUN Creatinine Glucose POC Glucose Hemoglobin A1c Lactic Acid Calcium Phosphorus Magnesium Ferritin 980.6 H Total Bilirubin AST ALT Lactate Dehydrogenase 441 H C-Reactive Protein 20.20 H Albumin Triglycerides Arterial Blood Glucose Arterial Blood Ionized Calcium Urine Creatinine Coronavirus (PCR) Crossmatch 02/16/21 02/16/21 02/16/21 17:25 23:16 Unknown WBC RBC 2.19 L Hgb 7.1 L Hct 21.3 L MCV 98 H MCH 33 H MCHC RDW 16.0 H Plt Count Lymph % (Auto) Lymph # (Auto) Seg Neutrophils % Seg Neuts % (Manual) 85.0 H Lymphocytes % (Manual) 6.0 L Monocytes % (Manual) Nucleated RBC % 4.0 H Seg Neutrophils # Seg Neutrophils # Man Lymphocytes # (Manual) 0.5 L Monocytes # (Manual) Eosinophils # (Manual) INR D-Dimer ABG pH POC ABG pCO2 POC ABG pO2 ABG pO2 ABG HCO3 ABG O2 Saturation ABG Base Excess ABG Hemoglobin ABG Oxyhemoglobin ABG Sodium ABG Potassium ABG Chloride ABG Glucose Oxyhemoglobin Carboxyhemoglobin Sodium Potassium Chloride Carbon Dioxide BUN Creatinine Glucose POC Glucose 146 H 150 H Hemoglobin A1c Lactic Acid Calcium Phosphorus Magnesium Ferritin Total Bilirubin AST ALT Lactate Dehydrogenase C-Reactive Protein Albumin Triglycerides Arterial Blood Glucose Arterial Blood Ionized Calcium Urine Creatinine Coronavirus (PCR) Crossmatch 02/17/21 02/17/21 02/17/21 04:00 04:14 04:14 WBC RBC Hgb Hct MCV MCH MCHC RDW Plt Count Lymph % (Auto) Lymph # (Auto) Seg Neutrophils % Seg Neuts % (Manual) Lymphocytes % (Manual) Monocytes % (Manual) Nucleated RBC % Seg Neutrophils # Seg Neutrophils # Man Lymphocytes # (Manual) Monocytes # (Manual) Eosinophils # (Manual) INR D-Dimer 3183.35 H ABG pH 7.293 L POC ABG pCO2 59.5 H POC ABG pO2 68.1 L ABG pO2 ABG HCO3 ABG O2 Saturation ABG Base Excess ABG Hemoglobin 7.7 L ABG Oxyhemoglobin ABG Sodium 133.4 L ABG Potassium ABG Chloride ABG Glucose 143 H Oxyhemoglobin Carboxyhemoglobin Sodium 136 L Potassium Chloride 97.3 L Carbon Dioxide BUN 49 H Creatinine 5.3 H Glucose 139 H POC Glucose Hemoglobin A1c Lactic Acid Calcium Phosphorus Magnesium Ferritin Total Bilirubin AST ALT Lactate Dehydrogenase C-Reactive Protein Albumin Triglycerides Arterial Blood Glucose 143 H Arterial Blood Ionized Calcium Urine Creatinine Coronavirus (PCR) Crossmatch 02/17/21 02/17/21 02/17/21 04:14 04:14 04:14 WBC RBC 2.14 L Hgb 6.9 L Hct 21.0 L MCV 98 H MCH MCHC RDW 15.8 H Plt Count Lymph % (Auto) Lymph # (Auto) Seg Neutrophils % Seg Neuts % (Manual) Lymphocytes % (Manual) Monocytes % (Manual) Nucleated RBC % Seg Neutrophils # Seg Neutrophils # Man Lymphocytes # (Manual) Monocytes # (Manual) Eosinophils # (Manual) INR D-Dimer ABG pH POC ABG pCO2 POC ABG pO2 ABG pO2 ABG HCO3 ABG O2 Saturation ABG Base Excess ABG Hemoglobin ABG Oxyhemoglobin ABG Sodium ABG Potassium ABG Chloride ABG Glucose Oxyhemoglobin Carboxyhemoglobin Sodium Potassium Chloride Carbon Dioxide BUN Creatinine Glucose POC Glucose Hemoglobin A1c Lactic Acid Calcium Phosphorus Magnesium Ferritin 894.0 H Total Bilirubin AST ALT Lactate Dehydrogenase 399 H C-Reactive Protein 22.10 H Albumin Triglycerides Arterial Blood Glucose Arterial Blood Ionized Calcium Urine Creatinine Coronavirus (PCR) Crossmatch 02/17/21 02/17/21 02/17/21 06:06 07:45 12:25 WBC RBC Hgb 7.6 L Hct 22.8 L MCV MCH MCHC RDW Plt Count Lymph % (Auto) Lymph # (Auto) Seg Neutrophils % Seg Neuts % (Manual) Lymphocytes % (Manual) Monocytes % (Manual) Nucleated RBC % Seg Neutrophils # Seg Neutrophils # Man Lymphocytes # (Manual) Monocytes # (Manual) Eosinophils # (Manual) INR D-Dimer ABG pH POC ABG pCO2 POC ABG pO2 ABG pO2 ABG HCO3 ABG O2 Saturation ABG Base Excess ABG Hemoglobin ABG Oxyhemoglobin ABG Sodium ABG Potassium ABG Chloride ABG Glucose Oxyhemoglobin Carboxyhemoglobin Sodium Potassium Chloride Carbon Dioxide BUN Creatinine Glucose POC Glucose 134 H Hemoglobin A1c Lactic Acid Calcium Phosphorus Magnesium Ferritin Total Bilirubin AST ALT Lactate Dehydrogenase C-Reactive Protein Albumin Triglycerides Arterial Blood Glucose Arterial Blood Ionized Calcium Urine Creatinine Coronavirus (PCR) Crossmatch See Detail 02/17/21 02/17/21 02/17/21 12:35 17:56 23:34 WBC RBC Hgb Hct MCV MCH MCHC RDW Plt Count Lymph % (Auto) Lymph # (Auto) Seg Neutrophils % Seg Neuts % (Manual) Lymphocytes % (Manual) Monocytes % (Manual) Nucleated RBC % Seg Neutrophils # Seg Neutrophils # Man Lymphocytes # (Manual) Monocytes # (Manual) Eosinophils # (Manual) INR D-Dimer ABG pH POC ABG pCO2 POC ABG pO2 ABG pO2 ABG HCO3 ABG O2 Saturation ABG Base Excess ABG Hemoglobin ABG Oxyhemoglobin ABG Sodium ABG Potassium ABG Chloride ABG Glucose Oxyhemoglobin Carboxyhemoglobin Sodium Potassium Chloride Carbon Dioxide BUN Creatinine Glucose POC Glucose 114 H 128 H 120 H Hemoglobin A1c Lactic Acid Calcium Phosphorus Magnesium Ferritin Total Bilirubin AST ALT Lactate Dehydrogenase C-Reactive Protein Albumin Triglycerides Arterial Blood Glucose Arterial Blood Ionized Calcium Urine Creatinine Coronavirus (PCR) Crossmatch 02/18/21 02/18/21 02/18/21 04:03 04:55 05:02 WBC RBC 2.40 L Hgb 7.5 L Hct 23.1 L MCV 96 H MCH MCHC RDW 16.8 H Plt Count Lymph % (Auto) Lymph # (Auto) Seg Neutrophils % Seg Neuts % (Manual) Lymphocytes % (Manual) Monocytes % (Manual) Nucleated RBC % Seg Neutrophils # Seg Neutrophils # Man Lymphocytes # (Manual) Monocytes # (Manual) Eosinophils # (Manual) INR D-Dimer ABG pH 7.219 L POC ABG pCO2 58.7 H POC ABG pO2 64.2 L ABG pO2 ABG HCO3 ABG O2 Saturation ABG Base Excess ABG Hemoglobin ABG Oxyhemoglobin ABG Sodium 130.5 L ABG Potassium ABG Chloride ABG Glucose 147 H Oxyhemoglobin Carboxyhemoglobin Sodium 134 L Potassium Chloride 97.9 L Carbon Dioxide BUN 64 H Creatinine 6.5 H Glucose 135 H POC Glucose Hemoglobin A1c Lactic Acid Calcium 8.0 L Phosphorus Magnesium Ferritin Total Bilirubin AST ALT Lactate Dehydrogenase C-Reactive Protein Albumin Triglycerides Arterial Blood Glucose 147 H Arterial Blood Ionized Calcium Urine Creatinine Coronavirus (PCR) Crossmatch 02/18/21 02/18/21 02/18/21 05:27 10:00 11:51 WBC RBC Hgb Hct MCV MCH MCHC RDW Plt Count Lymph % (Auto) Lymph # (Auto) Seg Neutrophils % Seg Neuts % (Manual) Lymphocytes % (Manual) Monocytes % (Manual) Nucleated RBC % Seg Neutrophils # Seg Neutrophils # Man Lymphocytes # (Manual) Monocytes # (Manual) Eosinophils # (Manual) INR D-Dimer ABG pH POC ABG pCO2 POC ABG pO2 ABG pO2 ABG HCO3 ABG O2 Saturation ABG Base Excess ABG Hemoglobin ABG Oxyhemoglobin ABG Sodium ABG Potassium ABG Chloride ABG Glucose Oxyhemoglobin Carboxyhemoglobin Sodium Potassium Chloride Carbon Dioxide BUN Creatinine Glucose POC Glucose 130 H 123 H Hemoglobin A1c Lactic Acid Calcium Phosphorus Magnesium Ferritin Total Bilirubin AST ALT Lactate Dehydrogenase C-Reactive Protein Albumin Triglycerides Arterial Blood Glucose Arterial Blood Ionized Calcium Urine Creatinine Coronavirus (PCR) Positive A Crossmatch 02/18/21 02/18/21 02/19/21 18:10 23:35 05:00 WBC RBC Hgb Hct MCV MCH MCHC RDW Plt Count Lymph % (Auto) Lymph # (Auto) Seg Neutrophils % Seg Neuts % (Manual) Lymphocytes % (Manual) Monocytes % (Manual) Nucleated RBC % Seg Neutrophils # Seg Neutrophils # Man Lymphocytes # (Manual) Monocytes # (Manual) Eosinophils # (Manual) INR D-Dimer ABG pH 7.232 L POC ABG pCO2 64.3 H POC ABG pO2 ABG pO2 ABG HCO3 ABG O2 Saturation ABG Base Excess ABG Hemoglobin 8.1 L ABG Oxyhemoglobin ABG Sodium 133.5 L ABG Potassium ABG Chloride ABG Glucose 148 H Oxyhemoglobin Carboxyhemoglobin 1.6 H Sodium Potassium Chloride Carbon Dioxide BUN Creatinine Glucose POC Glucose 123 H 137 H Hemoglobin A1c Lactic Acid Calcium Phosphorus Magnesium Ferritin Total Bilirubin AST ALT Lactate Dehydrogenase C-Reactive Protein Albumin Triglycerides Arterial Blood Glucose 148 H Arterial Blood Ionized Calcium Urine Creatinine Coronavirus (PCR) Crossmatch 02/19/21 02/19/21 02/19/21 05:12 05:45 05:45 WBC RBC Hgb Hct MCV MCH MCHC RDW Plt Count Lymph % (Auto) Lymph # (Auto) Seg Neutrophils % Seg Neuts % (Manual) Lymphocytes % (Manual) Monocytes % (Manual) Nucleated RBC % Seg Neutrophils # Seg Neutrophils # Man Lymphocytes # (Manual) Monocytes # (Manual) Eosinophils # (Manual) INR D-Dimer 4840.82 H ABG pH POC ABG pCO2 POC ABG pO2 ABG pO2 ABG HCO3 ABG O2 Saturation ABG Base Excess ABG Hemoglobin ABG Oxyhemoglobin ABG Sodium ABG Potassium ABG Chloride ABG Glucose Oxyhemoglobin Carboxyhemoglobin Sodium 135 L Potassium Chloride 97.8 L Carbon Dioxide BUN 58 H Creatinine 5.6 H Glucose 140 H POC Glucose 134 H Hemoglobin A1c Lactic Acid Calcium Phosphorus Magnesium Ferritin Total Bilirubin AST ALT Lactate Dehydrogenase 345 H C-Reactive Protein 15.20 H Albumin Triglycerides 195 H Arterial Blood Glucose Arterial Blood Ionized Calcium Urine Creatinine Coronavirus (PCR) Crossmatch 02/19/21 02/19/21 02/19/21 05:45 12:00 17:48 WBC RBC Hgb Hct MCV MCH MCHC RDW Plt Count Lymph % (Auto) Lymph # (Auto) Seg Neutrophils % Seg Neuts % (Manual) Lymphocytes % (Manual) Monocytes % (Manual) Nucleated RBC % Seg Neutrophils # Seg Neutrophils # Man Lymphocytes # (Manual) Monocytes # (Manual) Eosinophils # (Manual) INR D-Dimer ABG pH POC ABG pCO2 POC ABG pO2 ABG pO2 ABG HCO3 ABG O2 Saturation ABG Base Excess ABG Hemoglobin ABG Oxyhemoglobin ABG Sodium ABG Potassium ABG Chloride ABG Glucose Oxyhemoglobin Carboxyhemoglobin Sodium Potassium Chloride Carbon Dioxide BUN Creatinine Glucose POC Glucose 122 H 119 H Hemoglobin A1c Lactic Acid Calcium Phosphorus Magnesium Ferritin 951.8 H Total Bilirubin AST ALT Lactate Dehydrogenase C-Reactive Protein Albumin Triglycerides Arterial Blood Glucose Arterial Blood Ionized Calcium Urine Creatinine Coronavirus (PCR) Crossmatch 02/20/21 02/20/21 02/20/21 03:20 04:00 11:48 WBC RBC Hgb Hct MCV MCH MCHC RDW Plt Count Lymph % (Auto) Lymph # (Auto) Seg Neutrophils % Seg Neuts % (Manual) Lymphocytes % (Manual) Monocytes % (Manual) Nucleated RBC % Seg Neutrophils # Seg Neutrophils # Man Lymphocytes # (Manual) Monocytes # (Manual) Eosinophils # (Manual) INR D-Dimer ABG pH 7.276 L POC ABG pCO2 57.3 H POC ABG pO2 71.0 L ABG pO2 ABG HCO3 ABG O2 Saturation ABG Base Excess ABG Hemoglobin 8.2 L ABG Oxyhemoglobin 91.9 L ABG Sodium 128.1 L ABG Potassium 4.8 H ABG Chloride ABG Glucose Oxyhemoglobin Carboxyhemoglobin 1.6 H Sodium 136 L Potassium Chloride Carbon Dioxide BUN 69 H Creatinine 6.4 H Glucose POC Glucose 131 H Hemoglobin A1c Lactic Acid Calcium 8.1 L Phosphorus Magnesium Ferritin Total Bilirubin AST ALT Lactate Dehydrogenase C-Reactive Protein Albumin Triglycerides Arterial Blood Glucose Arterial Blood Ionized Calcium 4.5 L Urine Creatinine Coronavirus (PCR) Crossmatch 02/20/21 02/20/21 02/21/21 18:05 23:28 02:53 WBC RBC Hgb Hct MCV MCH MCHC RDW Plt Count Lymph % (Auto) Lymph # (Auto) Seg Neutrophils % Seg Neuts % (Manual) Lymphocytes % (Manual) Monocytes % (Manual) Nucleated RBC % Seg Neutrophils # Seg Neutrophils # Man Lymphocytes # (Manual) Monocytes # (Manual) Eosinophils # (Manual) INR D-Dimer ABG pH 7.288 L POC ABG pCO2 52.7 H POC ABG pO2 81.5 L ABG pO2 ABG HCO3 ABG O2 Saturation ABG Base Excess ABG Hemoglobin 8.5 L ABG Oxyhemoglobin 93.6 L ABG Sodium 132.5 L ABG Potassium 4.6 H ABG Chloride ABG Glucose 106 H Oxyhemoglobin Carboxyhemoglobin 1.6 H Sodium Potassium Chloride Carbon Dioxide BUN Creatinine Glucose POC Glucose 114 H 118 H Hemoglobin A1c Lactic Acid Calcium Phosphorus Magnesium Ferritin Total Bilirubin AST ALT Lactate Dehydrogenase C-Reactive Protein Albumin Triglycerides Arterial Blood Glucose 106 H Arterial Blood Ionized Calcium 4.4 L Urine Creatinine Coronavirus (PCR) Crossmatch 02/21/21 02/21/21 02/21/21 05:29 11:42 16:35 WBC RBC Hgb Hct MCV MCH MCHC RDW Plt Count Lymph % (Auto) Lymph # (Auto) Seg Neutrophils % Seg Neuts % (Manual) Lymphocytes % (Manual) Monocytes % (Manual) Nucleated RBC % Seg Neutrophils # Seg Neutrophils # Man Lymphocytes # (Manual) Monocytes # (Manual) Eosinophils # (Manual) INR D-Dimer ABG pH POC ABG pCO2 POC ABG pO2 ABG pO2 ABG HCO3 ABG O2 Saturation ABG Base Excess ABG Hemoglobin ABG Oxyhemoglobin ABG Sodium ABG Potassium ABG Chloride ABG Glucose Oxyhemoglobin Carboxyhemoglobin Sodium Potassium 5.6 H Chloride 97.6 L Carbon Dioxide BUN 68 H Creatinine 5.7 H Glucose 160 H POC Glucose 111 H 131 H Hemoglobin A1c Lactic Acid Calcium 8.0 L Phosphorus 7.90 H Magnesium 2.60 H Ferritin Total Bilirubin AST ALT Lactate Dehydrogenase C-Reactive Protein Albumin Triglycerides Arterial Blood Glucose Arterial Blood Ionized Calcium Urine Creatinine Coronavirus (PCR) Crossmatch 02/21/21 02/22/21 02/22/21 17:17 00:04 04:22 WBC RBC Hgb Hct MCV MCH MCHC RDW Plt Count Lymph % (Auto) Lymph # (Auto) Seg Neutrophils % Seg Neuts % (Manual) Lymphocytes % (Manual) Monocytes % (Manual) Nucleated RBC % Seg Neutrophils # Seg Neutrophils # Man Lymphocytes # (Manual) Monocytes # (Manual) Eosinophils # (Manual) INR D-Dimer ABG pH 7.250 L POC ABG pCO2 60.1 H POC ABG pO2 57.6 L ABG pO2 ABG HCO3 ABG O2 Saturation ABG Base Excess ABG Hemoglobin 8.8 L ABG Oxyhemoglobin 87.0 L ABG Sodium 133.4 L ABG Potassium 5.1 H ABG Chloride ABG Glucose 124 H Oxyhemoglobin Carboxyhemoglobin Sodium Potassium Chloride Carbon Dioxide BUN Creatinine Glucose POC Glucose 135 H 121 H Hemoglobin A1c Lactic Acid Calcium Phosphorus Magnesium Ferritin Total Bilirubin AST ALT Lactate Dehydrogenase C-Reactive Protein Albumin Triglycerides Arterial Blood Glucose 124 H Arterial Blood Ionized Calcium Urine Creatinine Coronavirus (PCR) Crossmatch 02/22/21 02/22/21 02/22/21 05:33 09:41 09:41 WBC 13.2 H RBC 2.35 L Hgb 7.5 L Hct 22.7 L MCV 96 H MCH MCHC RDW 17.0 H Plt Count Lymph % (Auto) Lymph # (Auto) Seg Neutrophils % Seg Neuts % (Manual) 93.0 H Lymphocytes % (Manual) 4.0 L Monocytes % (Manual) Nucleated RBC % 1.0 H Seg Neutrophils # Seg Neutrophils # Man 12.3 H Lymphocytes # (Manual) 0.5 L Monocytes # (Manual) Eosinophils # (Manual) INR D-Dimer ABG pH POC ABG pCO2 POC ABG pO2 ABG pO2 ABG HCO3 ABG O2 Saturation ABG Base Excess ABG Hemoglobin ABG Oxyhemoglobin ABG Sodium ABG Potassium ABG Chloride ABG Glucose Oxyhemoglobin Carboxyhemoglobin Sodium Potassium 5.4 H Chloride Carbon Dioxide BUN 61 H Creatinine 5.5 H Glucose 117 H POC Glucose 114 H Hemoglobin A1c Lactic Acid Calcium 8.3 L Phosphorus Magnesium Ferritin Total Bilirubin AST ALT Lactate Dehydrogenase C-Reactive Protein Albumin Triglycerides Arterial Blood Glucose Arterial Blood Ionized Calcium Urine Creatinine Coronavirus (PCR) Crossmatch 02/22/21 02/22/21 02/23/21 12:08 17:06 04:00 WBC RBC Hgb Hct MCV MCH MCHC RDW Plt Count Lymph % (Auto) Lymph # (Auto) Seg Neutrophils % Seg Neuts % (Manual) Lymphocytes % (Manual) Monocytes % (Manual) Nucleated RBC % Seg Neutrophils # Seg Neutrophils # Man Lymphocytes # (Manual) Monocytes # (Manual) Eosinophils # (Manual) INR D-Dimer ABG pH 7.246 L POC ABG pCO2 POC ABG pO2 ABG pO2 119.4 H ABG HCO3 26.6 H ABG O2 Saturation ABG Base Excess ABG Hemoglobin 8.8 L ABG Oxyhemoglobin ABG Sodium ABG Potassium ABG Chloride ABG Glucose Oxyhemoglobin Carboxyhemoglobin Sodium Potassium Chloride Carbon Dioxide BUN Creatinine Glucose POC Glucose 133 H 114 H Hemoglobin A1c Lactic Acid Calcium Phosphorus Magnesium Ferritin Total Bilirubin AST ALT Lactate Dehydrogenase C-Reactive Protein Albumin Triglycerides Arterial Blood Glucose Arterial Blood Ionized Calcium Urine Creatinine Coronavirus (PCR) Crossmatch 02/23/21 02/23/21 02/24/21 06:20 11:42 03:43 WBC RBC Hgb Hct MCV MCH MCHC RDW Plt Count Lymph % (Auto) Lymph # (Auto) Seg Neutrophils % Seg Neuts % (Manual) Lymphocytes % (Manual) Monocytes % (Manual) Nucleated RBC % Seg Neutrophils # Seg Neutrophils # Man Lymphocytes # (Manual) Monocytes # (Manual) Eosinophils # (Manual) INR D-Dimer ABG pH 7.287 L POC ABG pCO2 54.7 H POC ABG pO2 ABG pO2 ABG HCO3 ABG O2 Saturation ABG Base Excess ABG Hemoglobin 8.5 L ABG Oxyhemoglobin ABG Sodium 135.6 L ABG Potassium ABG Chloride ABG Glucose 117 H Oxyhemoglobin Carboxyhemoglobin Sodium Potassium Chloride 97.6 L Carbon Dioxide BUN 79 H Creatinine 6.2 H Glucose POC Glucose 108 H Hemoglobin A1c Lactic Acid Calcium 8.3 L Phosphorus Magnesium Ferritin Total Bilirubin AST ALT Lactate Dehydrogenase C-Reactive Protein Albumin Triglycerides Arterial Blood Glucose 117 H Arterial Blood Ionized Calcium Urine Creatinine Coronavirus (PCR) Crossmatch 02/24/21 02/24/21 02/24/21 04:25 04:25 04:25 WBC 11.5 H RBC 2.47 L Hgb 7.7 L Hct 23.5 L MCV 95 H MCH MCHC RDW 16.7 H Plt Count Lymph % (Auto) Lymph # (Auto) Seg Neutrophils % Seg Neuts % (Manual) 82.0 H Lymphocytes % (Manual) 3.0 L Monocytes % (Manual) 11.0 H Nucleated RBC % Seg Neutrophils # Seg Neutrophils # Man 9.4 H Lymphocytes # (Manual) 0.3 L Monocytes # (Manual) 1.3 H Eosinophils # (Manual) INR D-Dimer 4695.21 H ABG pH POC ABG pCO2 POC ABG pO2 ABG pO2 ABG HCO3 ABG O2 Saturation ABG Base Excess ABG Hemoglobin ABG Oxyhemoglobin ABG Sodium ABG Potassium ABG Chloride ABG Glucose Oxyhemoglobin Carboxyhemoglobin Sodium Potassium Chloride Carbon Dioxide BUN 68 H Creatinine 4.9 H Glucose 113 H POC Glucose Hemoglobin A1c Lactic Acid Calcium Phosphorus Magnesium Ferritin Total Bilirubin AST ALT Lactate Dehydrogenase C-Reactive Protein 7.20 H Albumin Triglycerides Arterial Blood Glucose Arterial Blood Ionized Calcium Urine Creatinine Coronavirus (PCR) Crossmatch 02/24/21 02/24/21 02/24/21 04:25 05:01 11:12 WBC RBC Hgb Hct MCV MCH MCHC RDW Plt Count Lymph % (Auto) Lymph # (Auto) Seg Neutrophils % Seg Neuts % (Manual) Lymphocytes % (Manual) Monocytes % (Manual) Nucleated RBC % Seg Neutrophils # Seg Neutrophils # Man Lymphocytes # (Manual) Monocytes # (Manual) Eosinophils # (Manual) INR D-Dimer ABG pH POC ABG pCO2 POC ABG pO2 ABG pO2 ABG HCO3 ABG O2 Saturation ABG Base Excess ABG Hemoglobin ABG Oxyhemoglobin ABG Sodium ABG Potassium ABG Chloride ABG Glucose Oxyhemoglobin Carboxyhemoglobin Sodium Potassium Chloride Carbon Dioxide BUN Creatinine Glucose POC Glucose 116 H 112 H Hemoglobin A1c Lactic Acid Calcium Phosphorus Magnesium Ferritin 1116.0 H Total Bilirubin AST ALT Lactate Dehydrogenase C-Reactive Protein Albumin Triglycerides Arterial Blood Glucose Arterial Blood Ionized Calcium Urine Creatinine Coronavirus (PCR) Crossmatch 02/24/21 02/25/21 02/25/21 18:11 03:42 05:58 WBC RBC Hgb Hct MCV MCH MCHC RDW Plt Count Lymph % (Auto) Lymph # (Auto) Seg Neutrophils % Seg Neuts % (Manual) Lymphocytes % (Manual) Monocytes % (Manual) Nucleated RBC % Seg Neutrophils # Seg Neutrophils # Man Lymphocytes # (Manual) Monocytes # (Manual) Eosinophils # (Manual) INR D-Dimer ABG pH 7.287 L POC ABG pCO2 58.2 H POC ABG pO2 ABG pO2 ABG HCO3 ABG O2 Saturation ABG Base Excess ABG Hemoglobin 8.4 L ABG Oxyhemoglobin 93.7 L ABG Sodium ABG Potassium ABG Chloride ABG Glucose 104 H Oxyhemoglobin Carboxyhemoglobin Sodium Potassium Chloride Carbon Dioxide BUN Creatinine Glucose POC Glucose 109 H 109 H Hemoglobin A1c Lactic Acid Calcium Phosphorus Magnesium Ferritin Total Bilirubin AST ALT Lactate Dehydrogenase C-Reactive Protein Albumin Triglycerides Arterial Blood Glucose 104 H Arterial Blood Ionized Calcium 4.5 L Urine Creatinine Coronavirus (PCR) Crossmatch 02/25/21 02/25/21 02/25/21 09:03 13:47 16:50 WBC RBC Hgb Hct MCV MCH MCHC RDW Plt Count Lymph % (Auto) Lymph # (Auto) Seg Neutrophils % Seg Neuts % (Manual) Lymphocytes % (Manual) Monocytes % (Manual) Nucleated RBC % Seg Neutrophils # Seg Neutrophils # Man Lymphocytes # (Manual) Monocytes # (Manual) Eosinophils # (Manual) INR D-Dimer 6536.84 H ABG pH POC ABG pCO2 POC ABG pO2 ABG pO2 ABG HCO3 ABG O2 Saturation ABG Base Excess ABG Hemoglobin ABG Oxyhemoglobin ABG Sodium ABG Potassium ABG Chloride ABG Glucose Oxyhemoglobin Carboxyhemoglobin Sodium Potassium Chloride Carbon Dioxide BUN Creatinine Glucose POC Glucose 144 H 114 H Hemoglobin A1c Lactic Acid Calcium Phosphorus Magnesium Ferritin Total Bilirubin AST ALT Lactate Dehydrogenase C-Reactive Protein Albumin Triglycerides Arterial Blood Glucose Arterial Blood Ionized Calcium Urine Creatinine Coronavirus (PCR) Crossmatch 02/25/21 02/26/21 02/26/21 23:53 03:35 05:36 WBC RBC Hgb Hct MCV MCH MCHC RDW Plt Count Lymph % (Auto) Lymph # (Auto) Seg Neutrophils % Seg Neuts % (Manual) Lymphocytes % (Manual) Monocytes % (Manual) Nucleated RBC % Seg Neutrophils # Seg Neutrophils # Man Lymphocytes # (Manual) Monocytes # (Manual) Eosinophils # (Manual) INR D-Dimer ABG pH 7.179 L POC ABG pCO2 76.6 H POC ABG pO2 ABG pO2 ABG HCO3 ABG O2 Saturation ABG Base Excess ABG Hemoglobin 9.0 L ABG Oxyhemoglobin ABG Sodium 134.8 L ABG Potassium ABG Chloride ABG Glucose 118 H Oxyhemoglobin Carboxyhemoglobin Sodium Potassium Chloride Carbon Dioxide BUN Creatinine Glucose POC Glucose 110 H 113 H Hemoglobin A1c Lactic Acid Calcium Phosphorus Magnesium Ferritin Total Bilirubin AST ALT Lactate Dehydrogenase C-Reactive Protein Albumin Triglycerides Arterial Blood Glucose 118 H Arterial Blood Ionized Calcium Urine Creatinine Coronavirus (PCR) Crossmatch 02/26/21 02/26/21 02/26/21 05:48 05:48 05:48 WBC 11.4 H RBC 2.40 L Hgb 7.5 L Hct 23.2 L MCV 97 H MCH MCHC RDW 17.4 H Plt Count Lymph % (Auto) Lymph # (Auto) Seg Neutrophils % Seg Neuts % (Manual) Lymphocytes % (Manual) Monocytes % (Manual) Nucleated RBC % Seg Neutrophils # Seg Neutrophils # Man Lymphocytes # (Manual) Monocytes # (Manual) Eosinophils # (Manual) INR D-Dimer ABG pH POC ABG pCO2 POC ABG pO2 ABG pO2 ABG HCO3 ABG O2 Saturation ABG Base Excess ABG Hemoglobin ABG Oxyhemoglobin ABG Sodium ABG Potassium ABG Chloride ABG Glucose Oxyhemoglobin Carboxyhemoglobin Sodium Potassium Chloride Carbon Dioxide BUN 72 H Creatinine 4.5 H Glucose 112 H POC Glucose Hemoglobin A1c Lactic Acid Calcium 7.7 L Phosphorus Magnesium Ferritin 867.8 H Total Bilirubin AST ALT Lactate Dehydrogenase C-Reactive Protein 5.90 H Albumin Triglycerides Arterial Blood Glucose Arterial Blood Ionized Calcium Urine Creatinine Coronavirus (PCR) Crossmatch 02/26/21 02/26/21 02/26/21 08:00 11:29 18:13 WBC RBC Hgb Hct MCV MCH MCHC RDW Plt Count Lymph % (Auto) Lymph # (Auto) Seg Neutrophils % Seg Neuts % (Manual) Lymphocytes % (Manual) Monocytes % (Manual) Nucleated RBC % Seg Neutrophils # Seg Neutrophils # Man Lymphocytes # (Manual) Monocytes # (Manual) Eosinophils # (Manual) INR D-Dimer ABG pH 7.228 L POC ABG pCO2 70.2 H POC ABG pO2 79.7 L ABG pO2 ABG HCO3 ABG O2 Saturation ABG Base Excess ABG Hemoglobin 7.6 L ABG Oxyhemoglobin 93.2 L ABG Sodium 135.7 L ABG Potassium ABG Chloride ABG Glucose 119 H Oxyhemoglobin Carboxyhemoglobin Sodium Potassium Chloride Carbon Dioxide BUN Creatinine Glucose POC Glucose 110 H 115 H Hemoglobin A1c Lactic Acid Calcium Phosphorus Magnesium Ferritin Total Bilirubin AST ALT Lactate Dehydrogenase C-Reactive Protein Albumin Triglycerides Arterial Blood Glucose 119 H Arterial Blood Ionized Calcium Urine Creatinine Coronavirus (PCR) Crossmatch 02/26/21 02/27/21 02/27/21 23:18 04:00 05:04 WBC RBC Hgb Hct MCV MCH MCHC RDW Plt Count Lymph % (Auto) Lymph # (Auto) Seg Neutrophils % Seg Neuts % (Manual) Lymphocytes % (Manual) Monocytes % (Manual) Nucleated RBC % Seg Neutrophils # Seg Neutrophils # Man Lymphocytes # (Manual) Monocytes # (Manual) Eosinophils # (Manual) INR D-Dimer ABG pH 7.316 L POC ABG pCO2 49.0 H POC ABG pO2 111.2 H ABG pO2 ABG HCO3 ABG O2 Saturation ABG Base Excess ABG Hemoglobin 7.7 L ABG Oxyhemoglobin ABG Sodium 135.0 L ABG Potassium ABG Chloride ABG Glucose 113 H Oxyhemoglobin Carboxyhemoglobin Sodium Potassium Chloride Carbon Dioxide BUN Creatinine Glucose POC Glucose 114 H 112 H Hemoglobin A1c Lactic Acid Calcium Phosphorus Magnesium Ferritin Total Bilirubin AST ALT Lactate Dehydrogenase C-Reactive Protein Albumin Triglycerides Arterial Blood Glucose 113 H Arterial Blood Ionized Calcium 4.4 L Urine Creatinine Coronavirus (PCR) Crossmatch 02/27/21 02/27/21 02/27/21 12:13 18:30 23:40 WBC RBC Hgb Hct MCV MCH MCHC RDW Plt Count Lymph % (Auto) Lymph # (Auto) Seg Neutrophils % Seg Neuts % (Manual) Lymphocytes % (Manual) Monocytes % (Manual) Nucleated RBC % Seg Neutrophils # Seg Neutrophils # Man Lymphocytes # (Manual) Monocytes # (Manual) Eosinophils # (Manual) INR D-Dimer ABG pH POC ABG pCO2 POC ABG pO2 ABG pO2 ABG HCO3 ABG O2 Saturation ABG Base Excess ABG Hemoglobin ABG Oxyhemoglobin ABG Sodium ABG Potassium ABG Chloride ABG Glucose Oxyhemoglobin Carboxyhemoglobin Sodium Potassium Chloride Carbon Dioxide BUN Creatinine Glucose POC Glucose 127 H 129 H 115 H Hemoglobin A1c Lactic Acid Calcium Phosphorus Magnesium Ferritin Total Bilirubin AST ALT Lactate Dehydrogenase C-Reactive Protein Albumin Triglycerides Arterial Blood Glucose Arterial Blood Ionized Calcium Urine Creatinine Coronavirus (PCR) Crossmatch 02/28/21 02/28/21 02/28/21 04:07 05:29 10:22 WBC RBC Hgb Hct MCV MCH MCHC RDW Plt Count Lymph % (Auto) Lymph # (Auto) Seg Neutrophils % Seg Neuts % (Manual) Lymphocytes % (Manual) Monocytes % (Manual) Nucleated RBC % Seg Neutrophils # Seg Neutrophils # Man Lymphocytes # (Manual) Monocytes # (Manual) Eosinophils # (Manual) INR D-Dimer ABG pH 7.260 L POC ABG pCO2 67.6 H POC ABG pO2 ABG pO2 ABG HCO3 ABG O2 Saturation ABG Base Excess ABG Hemoglobin 7.9 L ABG Oxyhemoglobin ABG Sodium ABG Potassium ABG Chloride ABG Glucose 129 H Oxyhemoglobin Carboxyhemoglobin Sodium Potassium Chloride Carbon Dioxide BUN 68 H Creatinine 3.5 H Glucose 117 H POC Glucose 117 H Hemoglobin A1c Lactic Acid Calcium 7.9 L Phosphorus Magnesium Ferritin Total Bilirubin AST ALT Lactate Dehydrogenase C-Reactive Protein Albumin Triglycerides Arterial Blood Glucose 129 H Arterial Blood Ionized Calcium Urine Creatinine Coronavirus (PCR) Crossmatch 02/28/21 02/28/21 03/01/21 11:51 17:26 00:31 WBC RBC Hgb Hct MCV MCH MCHC RDW Plt Count Lymph % (Auto) Lymph # (Auto) Seg Neutrophils % Seg Neuts % (Manual) Lymphocytes % (Manual) Monocytes % (Manual) Nucleated RBC % Seg Neutrophils # Seg Neutrophils # Man Lymphocytes # (Manual) Monocytes # (Manual) Eosinophils # (Manual) INR D-Dimer ABG pH POC ABG pCO2 POC ABG pO2 ABG pO2 ABG HCO3 ABG O2 Saturation ABG Base Excess ABG Hemoglobin ABG Oxyhemoglobin ABG Sodium ABG Potassium ABG Chloride ABG Glucose Oxyhemoglobin Carboxyhemoglobin Sodium Potassium Chloride Carbon Dioxide BUN Creatinine Glucose POC Glucose 123 H 121 H 112 H Hemoglobin A1c Lactic Acid Calcium Phosphorus Magnesium Ferritin Total Bilirubin AST ALT Lactate Dehydrogenase C-Reactive Protein Albumin Triglycerides Arterial Blood Glucose Arterial Blood Ionized Calcium Urine Creatinine Coronavirus (PCR) Crossmatch 03/01/21 03/01/21 03/01/21 03:29 06:00 06:17 WBC RBC Hgb Hct MCV MCH MCHC RDW Plt Count Lymph % (Auto) Lymph # (Auto) Seg Neutrophils % Seg Neuts % (Manual) Lymphocytes % (Manual) Monocytes % (Manual) Nucleated RBC % Seg Neutrophils # Seg Neutrophils # Man Lymphocytes # (Manual) Monocytes # (Manual) Eosinophils # (Manual) INR D-Dimer ABG pH POC ABG pCO2 52.3 H POC ABG pO2 115.1 H ABG pO2 ABG HCO3 ABG O2 Saturation ABG Base Excess ABG Hemoglobin 7.5 L ABG Oxyhemoglobin ABG Sodium 135.6 L ABG Potassium ABG Chloride ABG Glucose 117 H Oxyhemoglobin Carboxyhemoglobin 1.6 H Sodium Potassium Chloride Carbon Dioxide BUN 78 H Creatinine 3.6 H Glucose 110 H POC Glucose 121 H Hemoglobin A1c Lactic Acid Calcium 8.0 L Phosphorus Magnesium Ferritin Total Bilirubin AST ALT Lactate Dehydrogenase C-Reactive Protein Albumin Triglycerides Arterial Blood Glucose 117 H Arterial Blood Ionized Calcium Urine Creatinine Coronavirus (PCR) Crossmatch 03/01/21 03/02/21 03/02/21 23:22 04:43 05:46 WBC RBC Hgb Hct MCV MCH MCHC RDW Plt Count Lymph % (Auto) Lymph # (Auto) Seg Neutrophils % Seg Neuts % (Manual) Lymphocytes % (Manual) Monocytes % (Manual) Nucleated RBC % Seg Neutrophils # Seg Neutrophils # Man Lymphocytes # (Manual) Monocytes # (Manual) Eosinophils # (Manual) INR D-Dimer ABG pH POC ABG pCO2 POC ABG pO2 ABG pO2 ABG HCO3 ABG O2 Saturation ABG Base Excess ABG Hemoglobin ABG Oxyhemoglobin ABG Sodium ABG Potassium ABG Chloride ABG Glucose Oxyhemoglobin Carboxyhemoglobin Sodium Potassium Chloride Carbon Dioxide BUN 89 H Creatinine 3.6 H Glucose 116 H POC Glucose 116 H 126 H Hemoglobin A1c Lactic Acid Calcium 7.7 L Phosphorus Magnesium Ferritin Total Bilirubin AST ALT Lactate Dehydrogenase C-Reactive Protein Albumin Triglycerides Arterial Blood Glucose Arterial Blood Ionized Calcium Urine Creatinine Coronavirus (PCR) Crossmatch 03/02/21 03/02/21 03/02/21 08:35 11:35 15:17 WBC RBC 2.15 L Hgb 7.1 L Hct 20.4 L MCV 95 H MCH 33 H MCHC 35 H RDW 17.6 H Plt Count Lymph % (Auto) Lymph # (Auto) Seg Neutrophils % Seg Neuts % (Manual) Lymphocytes % (Manual) Monocytes % (Manual) Nucleated RBC % Seg Neutrophils # Seg Neutrophils # Man Lymphocytes # (Manual) Monocytes # (Manual) Eosinophils # (Manual) INR D-Dimer ABG pH POC ABG pCO2 POC ABG pO2 ABG pO2 ABG HCO3 ABG O2 Saturation ABG Base Excess ABG Hemoglobin ABG Oxyhemoglobin ABG Sodium ABG Potassium ABG Chloride ABG Glucose Oxyhemoglobin Carboxyhemoglobin Sodium Potassium Chloride Carbon Dioxide BUN Creatinine Glucose POC Glucose 117 H Hemoglobin A1c Lactic Acid Calcium Phosphorus Magnesium Ferritin Total Bilirubin AST ALT Lactate Dehydrogenase C-Reactive Protein Albumin Triglycerides Arterial Blood Glucose Arterial Blood Ionized Calcium Urine Creatinine Coronavirus (PCR) Positive A Crossmatch 03/02/21 03/02/21 03/02/21 17:50 23:26 Unknown WBC RBC Hgb Hct MCV MCH MCHC RDW Plt Count Lymph % (Auto) Lymph # (Auto) Seg Neutrophils % Seg Neuts % (Manual) Lymphocytes % (Manual) Monocytes % (Manual) Nucleated RBC % Seg Neutrophils # Seg Neutrophils # Man Lymphocytes # (Manual) Monocytes # (Manual) Eosinophils # (Manual) INR D-Dimer ABG pH 7.282 L POC ABG pCO2 POC ABG pO2 ABG pO2 150.8 H ABG HCO3 30.1 H ABG O2 Saturation ABG Base Excess ABG Hemoglobin 6.9 L ABG Oxyhemoglobin ABG Sodium ABG Potassium ABG Chloride ABG Glucose Oxyhemoglobin Carboxyhemoglobin Sodium Potassium Chloride Carbon Dioxide BUN Creatinine Glucose POC Glucose 131 H 143 H Hemoglobin A1c Lactic Acid Calcium Phosphorus Magnesium Ferritin Total Bilirubin AST ALT Lactate Dehydrogenase C-Reactive Protein Albumin Triglycerides Arterial Blood Glucose Arterial Blood Ionized Calcium Urine Creatinine Coronavirus (PCR) Crossmatch 03/03/21 03/03/21 03/03/21 03:50 05:46 17:16 WBC RBC Hgb Hct MCV MCH MCHC RDW Plt Count Lymph % (Auto) Lymph # (Auto) Seg Neutrophils % Seg Neuts % (Manual) Lymphocytes % (Manual) Monocytes % (Manual) Nucleated RBC % Seg Neutrophils # Seg Neutrophils # Man Lymphocytes # (Manual) Monocytes # (Manual) Eosinophils # (Manual) INR D-Dimer ABG pH 7.276 L POC ABG pCO2 POC ABG pO2 ABG pO2 ABG HCO3 31.7 H ABG O2 Saturation ABG Base Excess 4.3 H ABG Hemoglobin 6.7 L ABG Oxyhemoglobin ABG Sodium ABG Potassium ABG Chloride ABG Glucose Oxyhemoglobin 93.5 L Carboxyhemoglobin Sodium Potassium Chloride Carbon Dioxide BUN Creatinine Glucose POC Glucose 107 H 109 H Hemoglobin A1c Lactic Acid Calcium Phosphorus Magnesium Ferritin Total Bilirubin AST ALT Lactate Dehydrogenase C-Reactive Protein Albumin Triglycerides Arterial Blood Glucose Arterial Blood Ionized Calcium Urine Creatinine Coronavirus (PCR) Crossmatch 03/03/21 03/03/21 03/03/21 23:34 Unknown Unknown WBC 12.4 H RBC 2.26 L Hgb 6.8 L Hct 21.8 L MCV 96 H MCH MCHC 31 L RDW 18.5 H Plt Count Lymph % (Auto) Lymph # (Auto) Seg Neutrophils % Seg Neuts % (Manual) Lymphocytes % (Manual) Monocytes % (Manual) Nucleated RBC % Seg Neutrophils # Seg Neutrophils # Man Lymphocytes # (Manual) Monocytes # (Manual) Eosinophils # (Manual) INR D-Dimer ABG pH POC ABG pCO2 POC ABG pO2 ABG pO2 ABG HCO3 ABG O2 Saturation ABG Base Excess ABG Hemoglobin ABG Oxyhemoglobin ABG Sodium ABG Potassium ABG Chloride ABG Glucose Oxyhemoglobin Carboxyhemoglobin Sodium Potassium Chloride Carbon Dioxide BUN 70 H Creatinine 2.6 H Glucose 118 H POC Glucose 135 H Hemoglobin A1c Lactic Acid Calcium Phosphorus Magnesium Ferritin Total Bilirubin AST ALT Lactate Dehydrogenase C-Reactive Protein Albumin Triglycerides Arterial Blood Glucose Arterial Blood Ionized Calcium Urine Creatinine Coronavirus (PCR) Crossmatch 03/03/21 03/03/21 03/04/21 Unknown Unknown 03:15 WBC RBC Hgb Hct MCV MCH MCHC RDW Plt Count Lymph % (Auto) Lymph # (Auto) Seg Neutrophils % Seg Neuts % (Manual) Lymphocytes % (Manual) Monocytes % (Manual) Nucleated RBC % Seg Neutrophils # Seg Neutrophils # Man Lymphocytes # (Manual) Monocytes # (Manual) Eosinophils # (Manual) INR 1.15 H D-Dimer ABG pH 7.285 L POC ABG pCO2 POC ABG pO2 ABG pO2 ABG HCO3 28.8 H ABG O2 Saturation ABG Base Excess ABG Hemoglobin 8.3 L ABG Oxyhemoglobin ABG Sodium ABG Potassium ABG Chloride ABG Glucose Oxyhemoglobin 93.4 L Carboxyhemoglobin Sodium Potassium Chloride Carbon Dioxide BUN Creatinine Glucose POC Glucose Hemoglobin A1c Lactic Acid Calcium Phosphorus Magnesium Ferritin Total Bilirubin AST ALT Lactate Dehydrogenase C-Reactive Protein Albumin Triglycerides Arterial Blood Glucose Arterial Blood Ionized Calcium Urine Creatinine Coronavirus (PCR) Crossmatch See Detail 03/04/21 03/04/21 03/04/21 03:28 05:39 11:47 WBC RBC Hgb Hct MCV MCH MCHC RDW Plt Count Lymph % (Auto) Lymph # (Auto) Seg Neutrophils % Seg Neuts % (Manual) Lymphocytes % (Manual) Monocytes % (Manual) Nucleated RBC % Seg Neutrophils # Seg Neutrophils # Man Lymphocytes # (Manual) Monocytes # (Manual) Eosinophils # (Manual) INR D-Dimer ABG pH 7.285 L POC ABG pCO2 62.0 H POC ABG pO2 80.9 L ABG pO2 ABG HCO3 ABG O2 Saturation ABG Base Excess ABG Hemoglobin 8.3 L ABG Oxyhemoglobin ABG Sodium ABG Potassium ABG Chloride ABG Glucose 144 H Oxyhemoglobin Carboxyhemoglobin Sodium Potassium Chloride Carbon Dioxide BUN Creatinine Glucose POC Glucose 123 H 125 H Hemoglobin A1c Lactic Acid Calcium Phosphorus Magnesium Ferritin Total Bilirubin AST ALT Lactate Dehydrogenase C-Reactive Protein Albumin Triglycerides Arterial Blood Glucose 144 H Arterial Blood Ionized Calcium Urine Creatinine Coronavirus (PCR) Crossmatch 03/04/21 03/04/21 03/04/21 16:49 Unknown Unknown WBC 13.9 H RBC 2.58 L Hgb 7.7 L Hct 24.0 L MCV MCH MCHC RDW 20.3 H Plt Count Lymph % (Auto) Lymph # (Auto) Seg Neutrophils % Seg Neuts % (Manual) Lymphocytes % (Manual) Monocytes % (Manual) Nucleated RBC % Seg Neutrophils # Seg Neutrophils # Man Lymphocytes # (Manual) Monocytes # (Manual) Eosinophils # (Manual) INR D-Dimer ABG pH POC ABG pCO2 POC ABG pO2 ABG pO2 ABG HCO3 ABG O2 Saturation ABG Base Excess ABG Hemoglobin ABG Oxyhemoglobin ABG Sodium ABG Potassium ABG Chloride ABG Glucose Oxyhemoglobin Carboxyhemoglobin Sodium Potassium Chloride Carbon Dioxide BUN 78 H Creatinine 2.5 H Glucose 131 H POC Glucose 120 H Hemoglobin A1c Lactic Acid Calcium 8.2 L Phosphorus Magnesium Ferritin Total Bilirubin AST ALT Lactate Dehydrogenase C-Reactive Protein Albumin Triglycerides Arterial Blood Glucose Arterial Blood Ionized Calcium Urine Creatinine Coronavirus (PCR) Crossmatch 03/05/21 03/05/21 03/05/21 00:31 04:18 05:30 WBC RBC Hgb Hct MCV MCH MCHC RDW Plt Count Lymph % (Auto) Lymph # (Auto) Seg Neutrophils % Seg Neuts % (Manual) Lymphocytes % (Manual) Monocytes % (Manual) Nucleated RBC % Seg Neutrophils # Seg Neutrophils # Man Lymphocytes # (Manual) Monocytes # (Manual) Eosinophils # (Manual) INR D-Dimer ABG pH 7.160 L POC ABG pCO2 86.3 H POC ABG pO2 55.9 L ABG pO2 ABG HCO3 ABG O2 Saturation ABG Base Excess ABG Hemoglobin 8.3 L ABG Oxyhemoglobin 82.1 L ABG Sodium ABG Potassium ABG Chloride 108.0 H ABG Glucose 149 H Oxyhemoglobin Carboxyhemoglobin 1.7 H Sodium Potassium Chloride Carbon Dioxide BUN Creatinine Glucose POC Glucose 129 H 133 H Hemoglobin A1c Lactic Acid Calcium Phosphorus Magnesium Ferritin Total Bilirubin AST ALT Lactate Dehydrogenase C-Reactive Protein Albumin Triglycerides Arterial Blood Glucose 149 H Arterial Blood Ionized Calcium Urine Creatinine Coronavirus (PCR) Crossmatch 03/05/21 03/05/21 03/05/21 09:00 11:31 16:55 WBC RBC Hgb Hct MCV MCH MCHC RDW Plt Count Lymph % (Auto) Lymph # (Auto) Seg Neutrophils % Seg Neuts % (Manual) Lymphocytes % (Manual) Monocytes % (Manual) Nucleated RBC % Seg Neutrophils # Seg Neutrophils # Man Lymphocytes # (Manual) Monocytes # (Manual) Eosinophils # (Manual) INR D-Dimer ABG pH POC ABG pCO2 POC ABG pO2 ABG pO2 ABG HCO3 ABG O2 Saturation ABG Base Excess ABG Hemoglobin ABG Oxyhemoglobin ABG Sodium ABG Potassium ABG Chloride ABG Glucose Oxyhemoglobin Carboxyhemoglobin Sodium Potassium Chloride Carbon Dioxide BUN 84 H Creatinine 2.3 H Glucose 143 H POC Glucose 133 H 146 H Hemoglobin A1c Lactic Acid Calcium 8.0 L Phosphorus Magnesium Ferritin Total Bilirubin AST ALT Lactate Dehydrogenase C-Reactive Protein Albumin Triglycerides Arterial Blood Glucose Arterial Blood Ionized Calcium Urine Creatinine Coronavirus (PCR) Crossmatch 03/05/21 03/05/21 03/05/21 23:20 Unknown Unknown WBC RBC Hgb Hct MCV MCH MCHC RDW Plt Count Lymph % (Auto) Lymph # (Auto) Seg Neutrophils % Seg Neuts % (Manual) Lymphocytes % (Manual) Monocytes % (Manual) Nucleated RBC % Seg Neutrophils # Seg Neutrophils # Man Lymphocytes # (Manual) Monocytes # (Manual) Eosinophils # (Manual) INR D-Dimer ABG pH POC ABG pCO2 POC ABG pO2 ABG pO2 ABG HCO3 ABG O2 Saturation ABG Base Excess ABG Hemoglobin ABG Oxyhemoglobin ABG Sodium ABG Potassium ABG Chloride ABG Glucose Oxyhemoglobin Carboxyhemoglobin Sodium Potassium Chloride Carbon Dioxide BUN Creatinine Glucose POC Glucose 144 H Hemoglobin A1c Lactic Acid Calcium Phosphorus Magnesium Ferritin Total Bilirubin AST ALT Lactate Dehydrogenase C-Reactive Protein Albumin Triglycerides Arterial Blood Glucose Arterial Blood Ionized Calcium Urine Creatinine 65.9 H 66.1 H Coronavirus (PCR) Crossmatch 03/06/21 03/06/21 03/06/21 03:23 05:20 11:59 WBC RBC Hgb Hct MCV MCH MCHC RDW Plt Count Lymph % (Auto) Lymph # (Auto) Seg Neutrophils % Seg Neuts % (Manual) Lymphocytes % (Manual) Monocytes % (Manual) Nucleated RBC % Seg Neutrophils # Seg Neutrophils # Man Lymphocytes # (Manual) Monocytes # (Manual) Eosinophils # (Manual) INR D-Dimer ABG pH 7.239 L POC ABG pCO2 67.0 H POC ABG pO2 76.6 L ABG pO2 ABG HCO3 ABG O2 Saturation ABG Base Excess ABG Hemoglobin 8.0 L ABG Oxyhemoglobin 92.4 L ABG Sodium 145.6 H ABG Potassium ABG Chloride 108.0 H ABG Glucose 134 H Oxyhemoglobin Carboxyhemoglobin 2.1 H Sodium Potassium Chloride Carbon Dioxide BUN Creatinine Glucose POC Glucose 114 H 132 H Hemoglobin A1c Lactic Acid Calcium Phosphorus Magnesium Ferritin Total Bilirubin AST ALT Lactate Dehydrogenase C-Reactive Protein Albumin Triglycerides Arterial Blood Glucose 134 H Arterial Blood Ionized Calcium Urine Creatinine Coronavirus (PCR) Crossmatch 03/06/21 03/06/21 03/06/21 17:35 17:45 18:01 WBC RBC Hgb Hct MCV MCH MCHC RDW Plt Count Lymph % (Auto) Lymph # (Auto) Seg Neutrophils % Seg Neuts % (Manual) Lymphocytes % (Manual) Monocytes % (Manual) Nucleated RBC % Seg Neutrophils # Seg Neutrophils # Man Lymphocytes # (Manual) Monocytes # (Manual) Eosinophils # (Manual) INR D-Dimer ABG pH 7.286 L POC ABG pCO2 POC ABG pO2 ABG pO2 78.1 L ABG HCO3 33.7 H ABG O2 Saturation ABG Base Excess 5.5 H ABG Hemoglobin 10.3 L ABG Oxyhemoglobin ABG Sodium ABG Potassium ABG Chloride ABG Glucose Oxyhemoglobin 92.3 L Carboxyhemoglobin Sodium 148 H Potassium Chloride 107.1 H Carbon Dioxide 33 H BUN 91 H Creatinine 2.1 H Glucose 149 H POC Glucose 132 H Hemoglobin A1c Lactic Acid Calcium 8.2 L Phosphorus Magnesium Ferritin Total Bilirubin AST ALT Lactate Dehydrogenase C-Reactive Protein Albumin Triglycerides Arterial Blood Glucose Arterial Blood Ionized Calcium Urine Creatinine Coronavirus (PCR) Crossmatch 03/06/21 03/07/21 03/07/21 23:44 03:30 03:33 WBC RBC Hgb Hct MCV MCH MCHC RDW Plt Count Lymph % (Auto) Lymph # (Auto) Seg Neutrophils % Seg Neuts % (Manual) Lymphocytes % (Manual) Monocytes % (Manual) Nucleated RBC % Seg Neutrophils # Seg Neutrophils # Man Lymphocytes # (Manual) Monocytes # (Manual) Eosinophils # (Manual) INR D-Dimer ABG pH POC ABG pCO2 60.0 H POC ABG pO2 76.2 L ABG pO2 ABG HCO3 ABG O2 Saturation ABG Base Excess ABG Hemoglobin 7.7 L ABG Oxyhemoglobin 93.2 L ABG Sodium 148.6 H ABG Potassium ABG Chloride 112.0 H ABG Glucose 173 H Oxyhemoglobin Carboxyhemoglobin 1.7 H Sodium 147 H Potassium Chloride 107.4 H Carbon Dioxide BUN 90 H Creatinine 2.0 H Glucose 158 H POC Glucose 144 H Hemoglobin A1c Lactic Acid Calcium 8.0 L Phosphorus Magnesium Ferritin Total Bilirubin AST ALT Lactate Dehydrogenase C-Reactive Protein Albumin Triglycerides Arterial Blood Glucose 173 H Arterial Blood Ionized Calcium Urine Creatinine Coronavirus (PCR) Crossmatch 03/07/21 03/07/21 03/07/21 05:11 08:01 12:29 WBC 11.8 H RBC 2.45 L Hgb 7.2 L Hct 23.4 L MCV 96 H MCH MCHC 31 L RDW 19.7 H Plt Count Lymph % (Auto) 7.3 L Lymph # (Auto) 0.9 L Seg Neutrophils % 82.8 H Seg Neuts % (Manual) Lymphocytes % (Manual) Monocytes % (Manual) Nucleated RBC % Seg Neutrophils # 9.8 H Seg Neutrophils # Man Lymphocytes # (Manual) Monocytes # (Manual) Eosinophils # (Manual) INR D-Dimer ABG pH POC ABG pCO2 POC ABG pO2 ABG pO2 ABG HCO3 ABG O2 Saturation ABG Base Excess ABG Hemoglobin ABG Oxyhemoglobin ABG Sodium ABG Potassium ABG Chloride ABG Glucose Oxyhemoglobin Carboxyhemoglobin Sodium Potassium Chloride Carbon Dioxide BUN Creatinine Glucose POC Glucose 144 H 117 H Hemoglobin A1c Lactic Acid Calcium Phosphorus Magnesium Ferritin Total Bilirubin AST ALT Lactate Dehydrogenase C-Reactive Protein Albumin Triglycerides Arterial Blood Glucose Arterial Blood Ionized Calcium Urine Creatinine Coronavirus (PCR) Crossmatch 03/07/21 03/07/21 03/08/21 17:51 23:21 02:59 WBC RBC Hgb Hct MCV MCH MCHC RDW Plt Count Lymph % (Auto) Lymph # (Auto) Seg Neutrophils % Seg Neuts % (Manual) Lymphocytes % (Manual) Monocytes % (Manual) Nucleated RBC % Seg Neutrophils # Seg Neutrophils # Man Lymphocytes # (Manual) Monocytes # (Manual) Eosinophils # (Manual) INR D-Dimer ABG pH POC ABG pCO2 61.8 H POC ABG pO2 76.5 L ABG pO2 ABG HCO3 ABG O2 Saturation ABG Base Excess ABG Hemoglobin 8.3 L ABG Oxyhemoglobin 92.6 L ABG Sodium 150.5 H ABG Potassium ABG Chloride 114.0 H ABG Glucose 170 H Oxyhemoglobin Carboxyhemoglobin 1.9 H Sodium Potassium Chloride Carbon Dioxide BUN Creatinine Glucose POC Glucose 140 H 141 H Hemoglobin A1c Lactic Acid Calcium Phosphorus Magnesium Ferritin Total Bilirubin AST ALT Lactate Dehydrogenase C-Reactive Protein Albumin Triglycerides Arterial Blood Glucose 170 H Arterial Blood Ionized Calcium Urine Creatinine Coronavirus (PCR) Crossmatch 03/08/21 03/08/21 03/08/21 04:20 05:07 11:59 WBC RBC Hgb Hct MCV MCH MCHC RDW Plt Count Lymph % (Auto) Lymph # (Auto) Seg Neutrophils % Seg Neuts % (Manual) Lymphocytes % (Manual) Monocytes % (Manual) Nucleated RBC % Seg Neutrophils # Seg Neutrophils # Man Lymphocytes # (Manual) Monocytes # (Manual) Eosinophils # (Manual) INR D-Dimer ABG pH POC ABG pCO2 POC ABG pO2 ABG pO2 ABG HCO3 ABG O2 Saturation ABG Base Excess ABG Hemoglobin ABG Oxyhemoglobin ABG Sodium ABG Potassium ABG Chloride ABG Glucose Oxyhemoglobin Carboxyhemoglobin Sodium 151 H Potassium Chloride 112.1 H Carbon Dioxide 31 H BUN 90 H Creatinine 1.7 H Glucose 166 H POC Glucose 149 H 136 H Hemoglobin A1c Lactic Acid Calcium 7.9 L Phosphorus Magnesium Ferritin Total Bilirubin AST ALT Lactate Dehydrogenase C-Reactive Protein Albumin Triglycerides Arterial Blood Glucose Arterial Blood Ionized Calcium Urine Creatinine Coronavirus (PCR) Crossmatch 03/08/21 03/08/21 03/09/21 17:33 23:25 04:45 WBC RBC Hgb Hct MCV MCH MCHC RDW Plt Count Lymph % (Auto) Lymph # (Auto) Seg Neutrophils % Seg Neuts % (Manual) Lymphocytes % (Manual) Monocytes % (Manual) Nucleated RBC % Seg Neutrophils # Seg Neutrophils # Man Lymphocytes # (Manual) Monocytes # (Manual) Eosinophils # (Manual) INR D-Dimer ABG pH POC ABG pCO2 POC ABG pO2 ABG pO2 ABG HCO3 ABG O2 Saturation ABG Base Excess ABG Hemoglobin ABG Oxyhemoglobin ABG Sodium ABG Potassium ABG Chloride ABG Glucose Oxyhemoglobin Carboxyhemoglobin Sodium Potassium Chloride Carbon Dioxide BUN Creatinine Glucose POC Glucose 136 H 143 H 157 H Hemoglobin A1c Lactic Acid Calcium Phosphorus Magnesium Ferritin Total Bilirubin AST ALT Lactate Dehydrogenase C-Reactive Protein Albumin Triglycerides Arterial Blood Glucose Arterial Blood Ionized Calcium Urine Creatinine Coronavirus (PCR) Crossmatch 03/09/21 03/09/21 03/09/21 05:00 08:00 08:00 WBC 17.5 H RBC 2.41 L Hgb 7.0 L Hct 23.4 L MCV 97 H MCH MCHC 30 L RDW 20.1 H Plt Count Lymph % (Auto) Lymph # (Auto) Seg Neutrophils % Seg Neuts % (Manual) Lymphocytes % (Manual) Monocytes % (Manual) Nucleated RBC % Seg Neutrophils # Seg Neutrophils # Man Lymphocytes # (Manual) Monocytes # (Manual) Eosinophils # (Manual) INR D-Dimer ABG pH 7.256 L POC ABG pCO2 77.8 H POC ABG pO2 71.2 L ABG pO2 ABG HCO3 ABG O2 Saturation ABG Base Excess ABG Hemoglobin 8.2 L ABG Oxyhemoglobin 91.7 L ABG Sodium 152.4 H ABG Potassium ABG Chloride 115.0 H ABG Glucose 190 H Oxyhemoglobin Carboxyhemoglobin Sodium 157 H Potassium Chloride 115.2 H Carbon Dioxide 35 H BUN 96 H Creatinine 1.7 H Glucose 167 H POC Glucose Hemoglobin A1c Lactic Acid Calcium 7.8 L Phosphorus Magnesium Ferritin Total Bilirubin AST ALT Lactate Dehydrogenase C-Reactive Protein Albumin Triglycerides Arterial Blood Glucose 190 H Arterial Blood Ionized Calcium Urine Creatinine Coronavirus (PCR) Crossmatch 03/09/21 03/09/21 03/09/21 11:43 17:40 23:19 WBC RBC Hgb Hct MCV MCH MCHC RDW Plt Count Lymph % (Auto) Lymph # (Auto) Seg Neutrophils % Seg Neuts % (Manual) Lymphocytes % (Manual) Monocytes % (Manual) Nucleated RBC % Seg Neutrophils # Seg Neutrophils # Man Lymphocytes # (Manual) Monocytes # (Manual) Eosinophils # (Manual) INR D-Dimer ABG pH POC ABG pCO2 POC ABG pO2 ABG pO2 ABG HCO3 ABG O2 Saturation ABG Base Excess ABG Hemoglobin ABG Oxyhemoglobin ABG Sodium ABG Potassium ABG Chloride ABG Glucose Oxyhemoglobin Carboxyhemoglobin Sodium Potassium Chloride Carbon Dioxide BUN Creatinine Glucose POC Glucose 145 H 143 H 156 H Hemoglobin A1c Lactic Acid Calcium Phosphorus Magnesium Ferritin Total Bilirubin AST ALT Lactate Dehydrogenase C-Reactive Protein Albumin Triglycerides Arterial Blood Glucose Arterial Blood Ionized Calcium Urine Creatinine Coronavirus (PCR) Crossmatch 03/10/21 03/10/21 03/10/21 03:31 04:31 04:31 WBC 20.8 H RBC 2.37 L Hgb 6.9 L Hct 23.2 L MCV 98 H MCH MCHC 30 L RDW 20.0 H Plt Count Lymph % (Auto) Lymph # (Auto) Seg Neutrophils % Seg Neuts % (Manual) Lymphocytes % (Manual) Monocytes % (Manual) Nucleated RBC % Seg Neutrophils # Seg Neutrophils # Man Lymphocytes # (Manual) Monocytes # (Manual) Eosinophils # (Manual) INR D-Dimer ABG pH 7.252 L POC ABG pCO2 76.2 H POC ABG pO2 ABG pO2 ABG HCO3 ABG O2 Saturation ABG Base Excess ABG Hemoglobin 7.4 L ABG Oxyhemoglobin ABG Sodium 152.6 H ABG Potassium ABG Chloride 117.0 H ABG Glucose 182 H Oxyhemoglobin Carboxyhemoglobin 1.8 H Sodium 157 H Potassium Chloride 117.0 H Carbon Dioxide 35 H BUN 102 H Creatinine 2.0 H Glucose 165 H POC Glucose Hemoglobin A1c Lactic Acid Calcium 7.9 L Phosphorus Magnesium Ferritin Total Bilirubin AST ALT Lactate Dehydrogenase C-Reactive Protein Albumin Triglycerides Arterial Blood Glucose 182 H Arterial Blood Ionized Calcium 4.4 L Urine Creatinine Coronavirus (PCR) Crossmatch 03/10/21 03/10/21 03/10/21 05:35 11:40 17:44 WBC RBC Hgb Hct MCV MCH MCHC RDW Plt Count Lymph % (Auto) Lymph # (Auto) Seg Neutrophils % Seg Neuts % (Manual) Lymphocytes % (Manual) Monocytes % (Manual) Nucleated RBC % Seg Neutrophils # Seg Neutrophils # Man Lymphocytes # (Manual) Monocytes # (Manual) Eosinophils # (Manual) INR D-Dimer ABG pH POC ABG pCO2 POC ABG pO2 ABG pO2 ABG HCO3 ABG O2 Saturation ABG Base Excess ABG Hemoglobin ABG Oxyhemoglobin ABG Sodium ABG Potassium ABG Chloride ABG Glucose Oxyhemoglobin Carboxyhemoglobin Sodium Potassium Chloride Carbon Dioxide BUN Creatinine Glucose POC Glucose 152 H 149 H 144 H Hemoglobin A1c Lactic Acid Calcium Phosphorus Magnesium Ferritin Total Bilirubin AST ALT Lactate Dehydrogenase C-Reactive Protein Albumin Triglycerides Arterial Blood Glucose Arterial Blood Ionized Calcium Urine Creatinine Coronavirus (PCR) Crossmatch 03/10/21 03/11/21 03/11/21 22:28 00:09 03:20 WBC RBC Hgb Hct MCV MCH MCHC RDW Plt Count Lymph % (Auto) Lymph # (Auto) Seg Neutrophils % Seg Neuts % (Manual) Lymphocytes % (Manual) Monocytes % (Manual) Nucleated RBC % Seg Neutrophils # Seg Neutrophils # Man Lymphocytes # (Manual) Monocytes # (Manual) Eosinophils # (Manual) INR D-Dimer ABG pH 7.227 L POC ABG pCO2 78.7 H POC ABG pO2 82.1 L ABG pO2 ABG HCO3 ABG O2 Saturation ABG Base Excess ABG Hemoglobin 8.1 L ABG Oxyhemoglobin ABG Sodium 154.2 H ABG Potassium ABG Chloride 117.0 H ABG Glucose 196 H Oxyhemoglobin Carboxyhemoglobin Sodium Potassium Chloride Carbon Dioxide BUN Creatinine Glucose POC Glucose 168 H Hemoglobin A1c Lactic Acid Calcium Phosphorus Magnesium Ferritin Total Bilirubin AST ALT Lactate Dehydrogenase C-Reactive Protein Albumin Triglycerides Arterial Blood Glucose 196 H Arterial Blood Ionized Calcium 4.5 L Urine Creatinine Coronavirus (PCR) Crossmatch See Detail 03/11/21 03/11/21 03/11/21 04:40 04:40 06:11 WBC 16.5 H RBC 2.44 L Hgb 7.2 L Hct 23.9 L MCV 98 H MCH MCHC 30 L RDW 19.5 H Plt Count Lymph % (Auto) Lymph # (Auto) Seg Neutrophils % Seg Neuts % (Manual) Lymphocytes % (Manual) Monocytes % (Manual) Nucleated RBC % Seg Neutrophils # Seg Neutrophils # Man Lymphocytes # (Manual) Monocytes # (Manual) Eosinophils # (Manual) INR D-Dimer ABG pH POC ABG pCO2 POC ABG pO2 ABG pO2 ABG HCO3 ABG O2 Saturation ABG Base Excess ABG Hemoglobin ABG Oxyhemoglobin ABG Sodium ABG Potassium ABG Chloride ABG Glucose Oxyhemoglobin Carboxyhemoglobin Sodium 156 H Potassium Chloride 117.0 H Carbon Dioxide 32 H BUN 96 H Creatinine 2.0 H Glucose 175 H POC Glucose 177 H Hemoglobin A1c Lactic Acid Calcium 7.5 L Phosphorus Magnesium Ferritin Total Bilirubin AST ALT Lactate Dehydrogenase C-Reactive Protein Albumin Triglycerides Arterial Blood Glucose Arterial Blood Ionized Calcium Urine Creatinine Coronavirus (PCR) Crossmatch
[2021-03-11] MEDS ORDERED: DEXTROSE 5% IN WATER 1,000 ML IV SCH (12:00)
[2021-03-11] MEDS: NORepinephrine/NS 4 MG-250 ML 4 MG/250 ML BAG IV SCH ×4 (14:25→23:25)
--- NOTE | 2021-03-11 14:48 | Progress Note ---
Assessment and Plan Assessment and plan: This is a 60-year-old male with diabetes mellitus, hypertension, hyperlipidemia, chronic renal insufficiency presents to the emergency department on 01/23 with shortness of breath, fevers chills, loss of smell and taste and body aches for the past 3 days via EMS. Per EMS patient's oxygen saturation on room air was 50% and after being placed on nonrebreather it increased 75%. Upon arrival to the emergency department patient was being bagged by EMS. In the emergency room patient was intubated due to severe hypoxia, increased work of breathing and lethargy. Patient was sedated on propofol and fentanyl. Patient presented with fever, tachycardia, tachypnea and acute hypoxic respiratory failure with PNA on CXR meeting Sepsis criteria. Lab work in the emergency department revealed hyponatremia, hypokalemia, hypochloremia, elevated CR/BUN and CXR showed bilateral pneumonia. Patient was admitted to the hospital service as a COVID-19 PUI with consults to infectious disease, nephrology and critical care medicine. 01/24/2021: Patient is intubated and sedated, patient is positive for COVID-19 in fection. ID was consulted and put on dexamethasone and remdesivir. Patient has DEISI and nephrology is following. Creatinine stable, patient is urinating. Discussed with nephrology and he is okay with remdesivir. Pulmonary critical care is following for his vent setting. PEEP of 8 and FiO2 of 85%. Patient was alert and off sedatives. 01/25/2021; patient is intubated and on mechanical ventilation. Continue with treatment of Covid. Nephrology and ID is following. Pulmonary is following for vent management 01/26: Remains on mechanical ventilation and [facility] increased his PEEP. [facility] has ordered Precedex for sedation. Possibly need to prone this p.m. No acute events reported overnight. This morning his D-dimer is greater than 10,000 and we have started him on Lovenox 120 mg daily. Nutrition has been consulted for initiation of tube feedings. Patient remains sedated on propofol 40 and fentanyl for the time my examination this morning. 01/27: Continue Lovenox, remdesivir and empiric antibiotics. Patient had a T-max of 101 overnight. The time of examination patient is on CMV 500/18/14/0.61. Kidney function slightly worsened. Sedated on fentanyl ground-level fall and Precedex. Nephrology has increased IV fluids to 100 ml/hr. Continue to trend BMP and CBC. Sedation vacation attempt by RN this AM. 01/28: Patient completed antibiotics today [facility] will paralyze patient and increase sedation. PICC line ordered for possible vasopressor therapy need. Patient's D-dimer remains greater than 10,000 and he still has hyperchloremia. Patient's kidney function has improved today. May need to prone the patient if no improvement in oxygenation is noted in the next 24 hours. The time of my examination patient is sedated with propofol, fentanyl and Precedex and is on assist control 500/18/16/0.80 hypoxic on ABG on 60% FiO2. 01/29: Patient was started on Nimbex yesterday and his ABG this morning showed respiratory acidosis with hypercapnia and his respiratory rate was increased. We will obtain a repeat ABG this afternoon. This morning patient is hypernatremic, hyperkalemic and hyperchloremic. His potassium has been corrected with the management and will obtain repeat BMP tomorrow. His kidney functions have remained stable and we will await nephrology's input. No acute events reported overnight. This morning the time my examination patient sedated with propofol, Precedex and fentanyl and paralyzed with Nimbex. He is on assist control 500/24/16 0.80. 01/30: This morning patient is hypokalemic again and was given Kayexalate. Patient has hypernatremia and hyper chloremia and his renal function is slightly worse after receiving Lasix yesterday. His D-dimer remains greater than 10,000 and he is still on a paralytic. Patient is sedated on Precedex, fentanyl, propofol. Mechanical ventilation settings seven-point //28. [facility] has decided to continue paralytics for 48 more hours and will attempt proning the patient. Increased free water flushes 300 cc every 4 hours. Patient states has restarted his antibiotics cefepime and vancomycin and recultured. 01/31/21 Hyperkalemia, Treated 02/01/21 Hyperkalemia, Treated 02/02: Patient's kidney function continues to worsen and a stat BMP this morning shows BUN/creatinine 20/6.1 and he remains hypocalcemic and hypernatremic, hypokalemic and hypochloremic. Patient received 2 g of calcium gluconate and Kayexalate and his repeat potassium was 4.3 this afternoon. He remains antibiotic therapy and steroids. Nephrology has placed the patient on bicarb drip given metabolic acidosis and has decided to hold off hemodialysis till tomorrow.The time my examination patient is sedated on fentanyl, Precedex and on assist control 500/20/12/0.70. s/p paralytic. 02/03: Today patient's ABG shows respiratory acidosis however it is improving, hypernatremia, hyperchloremia, metabolic acidosis on BMP, worsening kidney func tion BUN/creatinine 130/9.2 with hyperphosphatemia. Patient received a Vas-Cath to his right IJ for initiation of dialysis. At the time of my examination patient remains sedated on fentanyl, propofol and Precedex with vasopressor support with Levophed at 2. 02/04: At the time of examination patient was on assist control tidal volume 500, rate 40, PEEP of 12, FiO2 85%. Patient had a T-max of 100.9 and infectious disease has stopped his vancomycin given negative MRSA. This afternoon patient respiked his temperature and was pancultured again. Patient was started on hemodialysis yesterday and will receive HD again today. Patient is sedated on Precedex, propofol, fentanyl and remains on Levophed. He is on assist control tidal volume 500, rate of 30, PEEP of 12, FiO2 of 85%. Patient still has some respiratory acidosis however his hypernatremia and hyperchloremia have improved and his metabolic acidosis has resolved. Patient will receive hemodialysis today 02/05: Patient continues to have low-grade fever temp this morning time examination he was on assist control tidal volume 500, and sedated on propofol/fentanyl/Precedex and is on Levophed. Hemodialysis per nephrology. Antibiotics per ID. Patient's blood culture from 02/04 grew gram-positive cocci in clusters in 1/2 bottles and he was started on vancomycin. 02/06: Patients ABG showed respiratory acidosis and the tracings were changed however a repeat ABG showed showed acidosis.[facility] will start a bicarb drip after giving 2 amps of bicarb push. Yesterday patient blood cultures grew gram- positive cocci and he was started on vancomycin. At the time my examination patient was on assist control tidal volume 550, rate 34, PEEP 16, FiO2 90% and sedated on fentanyl, Precedex, propofol elevated pressure support with Levophed. Bilateral lower extremity Doppler ultrasounds done yesterday showed no evidence of DVT/SVT. 02/07/2021; patient is still on the vent with PEEP of 16 and FiO2 of 90%, sedated with fentanyl Precedex and propofol. Patient still requiring Levophed. Patient was sedated yesterday and was given bicarb push. Blood culture grew gram- positive cocci in clusters and he is on vancomycin, will follow identification. 02/08/2021;patient is still on the vent with PEEP of 16 and FiO2 of 90%, sedated with fentanyl Precedex and propofol. Patient still requiring Levophed. Patient was sedated yesterday and was given bicarb push. Blood culture grew gram- positive cocci in clusters and he is on vancomycin, will follow identification. Patient is currently on dialysis. Patient is anemic transfuse if hemoglobin is below 7. 02/09: This morning patient has slight hypokalemia, hypochorlemia, hyponatremia and metabolic alkalosis. [facility] will continue bicarb gtt given that the patient does not have HD access at this time. We will replete the potassium and recheck BMP in the AM. We will type and cross in anticipation of PRBC transfusion. This morning he is sedated on Ativan, fentayl, and precedex. Will obtain a triglyceride level today in hopes to resume propofol. Patient is alkalotic and BMP however we will continue with bicarb drip per [facility] given that the patient does not have any access for hemodialysis. Anticipate replacing hemodialysis catheter tomorrow or Tuesday. The time my examination he is on AC TV 550, Rate 34, PeeP 16, FiO2 .65. 02/10: A.m. labs still pending, [facility] plans to replace HD catheter tomorrow as the patient is still febrile however his fever curve is trending down, remains on a bicarb drip and on vancomycin. Today at the time my examination patient was sedated on Precedex, Ativan and fentanyl and he is on assist control tidal 11/04/1951, rate 34, PEEP 16, FiO2 65%. Overnight patient was hypotensive and received 1 dose of midodrine. 02/11: Patient is still having low-grade temperatures that we will obtain a bilateral lower upper extremity venous Doppler ultrasound given that his repeat cultures have been negative so far. Patient received a Vas-Cath today for hemodialysis. The time examination patient is on assist control tidal volume 550, rate of 34, PEEP of 16 and FiO2 of 75%. Patient was hypokalemic and anemic yesterday which were both repleted with potassium and 1 unit PRBC. 02/12: 02/12: Patient had a 12-second run of V. tach today, his potassium and magn esium were low which was repleted. Renal adjusted potassium bath. We will obtain a triglyceride level in hopes to restarting to prevent as needed. This morning at the time my examination patient was sedated on fentanyl, Ativan and Precedex and remained on a bicarb drip. He was on assist control tidal volume 550, rate 34, PEEP 16, FiO2 85%. We will obtain a occult stool given no evident source of bleeding and need for transfusion. Anemia possibly due to hemodialysis. 02/13: Patient's T-max was 100.7, remains on fentanyl, Ativan, Precedex and bicarb drip this morning at some examination on assist control tidal volume 550, rate 34, PEEP 16 and FiO2 85%. On the labs this morning is slightly hypokalemic and remains metabolic alkalotic on BMP. His occult was positive. His Lovenox and consult GI. Patient received hemodialysis today. 02/14: cont PPI, GI recommended to scope now, monitor clinically, tolerating TF, remains intubated. Hb 6.9 today - transfuse another unit. very poor prognosis. 02/15: H&H appears to be stable following 1 unit of transfusion yesterday. Continue to hold heparin and aspirin products. Continue to monitor clinically. Poor prognosis. Wean off from vent as tolerated. 02/16: Infectious disease has signed off, his Ativan drip was discontinued and to prevent drip will be started when patient needs it. T-max 100.6 yesterday afternoon. He received hemodialysis today and at the time my examination was still on mechanical ventilation assist control tidal volume 550, rate 34, PEEP 16 on 70% FiO2. Patient was sedated on fentanyl dexamethasone and Ativan. No acute events reported overnight. 02/17: This morning patient was scheduled to get 2 units PRBC however his repeat H/H after 1 unit PRBC was 7.6/22.8 and the width of the second unit PRBC. This morning patient was sedated on fentanyl, propofol, Precedex and on assist control tolerated by 50, rate 34, PEEP of 16, FiO2 35%. Wound care was consulted today for his upper lip wound. Nephrology continues to withhold dialysis. No acute events reported overnight. Dr. Adkins was unable to co ntact family for updates. 02/18: Family updated by Dr. Adkins and Dr. Reddy. Patient had a hemo dialysis today. The time my examination patient was on assist control tidal volume 550, rate 34, PEEP 16 and FiO2 35%. Overnight patient had a CT head and he was placed on 3% FiO2 and took "a long time to recover" per RN report. 02/19: Patient's D-dimer is trending up therefore he was started on prophylactic anticoagulation, no bowel movement for several days so he was started on mag citrate today. The time examination patient is sedated on Precedex 1.2, fentanyl 3, propofol 20 on assist control tidal volume 550, rate 34, PEEP 16, 80% FiO2 and on his ABG his PaO2 is 106. RT will try to wean as tolerated. Repeat COVID-19 PCR today was positive.Dr. Adkins updated the family today. 02/20: Patient received hemodialysis today. In the time my examination patient was sedated on Precedex, fentanyl, propofol and on assist control tidal line 550, rate 34, PEEP of 16 and 75% FiO2. Patient had a bowel movement yesterday. 02/21 no new concerns at this time afebrile Hospital course remains uncomplicated. 02/22. Hospital course complicated by an episode of ectopy over the p.m. Patient required Levophed for blood pressure control. Remains intubated sedated. Tolerated hemodialysis yesterday. 02/23: At the time my examination patient is on assist control tidal volume 550, rate 34, PEEP 16, FiO2 70% and is not sedated. Patient does not follow commands however his eyes open spontaneously and he does not track/focus. 02/24: Neurology consulted, EEG pending. No acute events reported overnight. Patient remains on hyperventilation totaling 550, rate 34, PEEP of 16 on 70% FiO2. Patient received hemodialysis yesterday. 02/25: EEG from 02/24 is suggestive of encephalopathy (toxic metabolic etiology cannot be excluded). This afternoon his peak pressures and and mean airway pres sure is elevated so we obtained a CXR and ABG. Results were called to Dr. Masters. Patient received 2 mg of Versed was placed back on his sedation with fentanyl and Precedex. 02/26: Patient is on pressure ventilation FiO2 70%, Pressure inspiration 25, rate 34, PEEP 10 and sedated on fentanyl at 2mcgs and Precedex at 0.2. We will obtain a cxr for evaluation. Patient seems to be much more comfortable today. 02/27: CXr unchanged, at the time of my examination patient is on pressure control ventilation FiO2 70%, pressure support 26, rate 34 n.p.o. for 10 and sedated on fentanyl at 2 and Precedex at 0.1. His latest ABG 7.3, CO2 49, PO2 111, base excess 24. Patient is to receive hemodialysis today. No acute events reported overnight. Patient still not following commands. 02/28: Continue mechanical ventilation per pulmonary recommendations. Patient currently in AC mode ventilation rate 34, FiO2 70%, PEEP 15. 02/24 EEG finding consistent with encephalopathy and/or drug effect, possibility of toxic metabolic etiology cannot be excluded, possibility of structural lesion on the left side cannot be excluded given left being slightly slower than the right. Continue hemodialysis per nephrology. Currently with sedation of fentanyl and Precedex. Pulmonary plans for trach when ventilator settings allow. 03/01: Patient remains on mechanical ventilation AC mode, FiO2 70%, PEEP of 10. Hemodialysis initiated on 02/03/2021. Continue per nephrology. Patient will need tracheostomy once ventilator settings allow. Continue supportive care with tube feedings. Aspiration precautions. Patient appears to have penile ulceration and purulence. Consult urology for further evaluation. Prognosis remains guarded. 03/02: Tentative plan to place permacath tomorrow, patient will be n.p.o. after midnight and repeat COVID-19 PCR was ordered. Urology was consulted for a possible penile fistula. Patient received hemodialysis today. Today at the time of examination patient was on pressure control ventilation with a PEEP of 10 and FiO2 of 60 sedated on fentanyl and Precedex. 03/03: Patient noted to be anemic and ordered 1 unit of PRBC to be transfused, [facility] thinks patient has suffered from oxygen toxicity from prolonged time on high levels of oxygen (greater than 60%) for several weeks. The time my examination patient was on volume control ventilation and he remains off sedation. 03/04: Patient H/H today and 7.04/30:24 unit PRBC yesterday. Patient remains on pressure control ventilation with a pressure support of 26, FiO2 55, rate of 24 and PEEP of 10. His sedation was restarted yesterday for increase WOB and tachypnea. Patient is sedated on fentanyl and dexamethasone. We will continue current management and possibly obtain a CT head on Tuesday if no improvement in mental status. 03/05: Infectious disease has stated that the patient is noninfectious as per PermCath procedure. However patient is renal function is improving and nephrology has opted to place PermCath on Tuesday if HD is still indicated. Patient was given mag citrate today for constipation and sodium bicarbonate push. Today surgery was consulted for possible debridement of sacral wound. 03/06: Patient is sedated on fentanyl and dexamethasone on pressure control ventilation FiO2 55%, pressure support 26, rate 40 and PEEP of 10 at the time my examination. And he was switched to assist control by [facility]. Patient continues to have low-grade fevers which may be multifactorial. Given that creatinine clearance was 26 and urine output is improving nephrology has decided to hold HD for now. General surgery has debrided the sacaral wound today. Will attempt to obtain midline or PIV in order to remove CVL BILLIE. 03/07: Alert, examination patient was sedated on fentanyl and dexamethasone on assist control tidal volume 550, rate 26, PEEP of 14 and 55% FiO2. Patient renal function has remained stable and we will monitor him off of hemodialysis. RN was unable to obtain a midline or PIV. Per [facility] CVL remain and possible small clot in the left IJ visualized with ultrasound probe. Will monitor fever curve. 03/08: Overnight FiO2 requirements increased, UOP remains good, decrease in Cr, increase in Na. Spoke to bedside RN about FWF. [facility] changed patient to PRVC. 03/09: Hypotensive. Received a bolus of fluid awaiting reevaluation may need to go back on pressors are still with intermittent low grade fever. Continues on Demadex. Not on dialysis at this time. [employer] has asked that HD access be discontinued. Nurse working on that. 03/10: Transfusion ordered palpable tenderness. We will continue to monitor closely. Pulmonary following for vent management and hypercapnia. Patient may need reevaluation by GI if anemia persist. Recheck labs in a.m. prognosis remains guarded to poor 03/11: WBC showing some improvement, Bicarb drip held due to noted resp acidosis, continue supportive care. No new change. Sepsis COVID-19 pneumonia Coag-neg Staph bacteremia Acute hypoxic and hypercapnic respiratory failure Acute kidney injury, HD initiated 02/03 Hypernatremia Anemia Diabetes mellitus Hypertension Hyperlipidemia Chronic renal insufficiency Elevated D-dimer Penile ulceration Sacral wound -CCM, nephrology, infectious disease, GI , vascular surgery, surgery, urology, neurology consulted, appreciate recommendations -s/p Antibiotic therapy, remdesivir, Steroid therapy -COVID-19 PCR positive, Pneumonia on CXR -Mechanical ventilation, wean as tolerated -VAP bundle -HD per nephrology, on hold given improvement 03/06 -S/p 5 units PRBC during stay -Trend BMP, CBC, COVID-19 inflammatory markers -Bilateral lower extremity and upper extremity Doppler ultrasound negative for DVT/SVT -SSI and Long-acting insulin -Accu-Cheks every 6 while on tube feedings -Hold home antihypertensive regimen and resume when appropriate -S/p vasopressor support -Blood pressure monitoring per protocol -S/p NaHCO3 gtt -02/17 CT head showed no acute intracranial abnormality, paranasal sinus disease -Bowel regimen, now on hold -02/24 EEG finding consistent with encephalopathy and/or drug effect, possibility of toxic metabolic etiology cannot be excluded, possibility of structural lesion on the left side cannot be excluded given left being slightly slower than the right. -Neosporin twice daily to penile shaft ulcer -01/23, 02/18, 03/02 COVID-19 PCR positive -Permcath placement pending -03/06 s/p bedside debridement with surgery -Wound care per nursing DVT/GI prophylaxis: SCDs to bilateral lower extremities while in bed, PPI, heparin subq Dispo: ICU The high probability of a clinically significant, sudden or life threatening deterioration of the [multi] system(s) required my full and direct attention, intervention and personal management. The aggregate critical care time was [35] minutes. This time is in addition to time spent performing reported procedures but includes the following: [x] Data Review and interpretation [x] Patient assessment and monitoring of vital signs [x] Documentation [x] Medication orders and management History Interval history: Patient seen and examined remains on full ventilatory support. Hospitalist Physical - Physical exam Narrative exam: General appearance: Present: no acute distress, obese, other (on mechanical ventilation, sedated) - EENT Eyes: Present: PERRL ENT: poor dentition - Neck Neck: Absent: masses or JVD, cervical LAD - Respiratory Respiratory effort: normal Respiratory: bilateral: diminished - Cardiovascular Rhythm: regular Heart Sounds: Present: S1 & S2. Absent: systolic murmur, diastolic murmur - Extremities Extremities: no ischemia, pulses intact, pulses symmetrical, normal temperature, normal color Extremity abnormal: edema Peripheral Pulses: within normal limits - Abdominal General gastrointestinal: soft, non-tender, non-distended, normal bowel sounds - Integumentary Integumentary: Present: warm, dry - Psychiatric Psychiatric: other (sedated) - Neurologic Neurologic: other (sedated) - Allied Health Allied health notes reviewed: nursing, RT - Constitutional Vitals: Temp Pulse Resp BP Pulse Ox 98.3 F 103 H 29 H 97/55 89 03/11/21 11:51 03/11/21 12:21 03/11/21 12:00 03/11/21 12:21 03/11/21 12:21 General appearance: Present: no acute distress, obese, other (on mechanical ventilation, sedated) HEART Score - HEART Score Risk factors: 1-2 risk factors Troponin: < normal limit - Critical Actions Critical Actions: 0-3 pts:0.9-1.7%risk of adverse cardiac event.Candidate for discharge Results - Labs CBC & Chem 7: 03/11/21 04:40 03/11/21 04:40 Labs: Laboratory Last Values WBC 16.5 K/mm3 (4.5-11.0) H 03/11/21 04:40 RBC 2.44 M/mm3 (3.65-5.03) L 03/11/21 04:40 Hgb 7.2 gm/dl (11.8-15.2) L 03/11/21 04:40 Hct 23.9 % (35.5-45.6) L 03/11/21 04:40 MCV 98 fl (84-94) H 03/11/21 04:40 MCH 30 pg (28-32) 03/11/21 04:40 MCHC 30 % (32-34) L 03/11/21 04:40 RDW 19.5 % (13.2-15.2) H 03/11/21 04:40 Plt Count 283 K/mm3 (140-440) 03/11/21 04:40 Lymph % (Auto) 7.3 % (13.4-35.0) L 03/07/21 08:01 Harding % (Auto) 6.9 % (0.0-7.3) 03/07/21 08:01 Eos % (Auto) 2.2 % (0.0-4.3) 03/07/21 08:01 Baso % (Auto) 0.8 % (0.0-1.8) 03/07/21 08:01 Lymph # (Auto) 0.9 K/mm3 (1.2-5.4) L 03/07/21 08:01 Harding # (Auto) 0.8 K/mm3 (0.0-0.8) 03/07/21 08:01 Eos # (Auto) 0.3 K/mm3 (0.0-0.4) 03/07/21 08:01 Baso # (Auto) 0.1 K/mm3 (0.0-0.1) 03/07/21 08:01 Add Manual Diff Complete 02/24/21 04:25 Total Counted 100 02/24/21 04:25 Seg Neutrophils % 82.8 % (40.0-70.0) H 03/07/21 08:01 Seg Neuts % (Manual) 82.0 % (40.0-70.0) H 02/24/21 04:25 Band Neutrophils % 2.0 % 02/16/21 Unknown Lymphocytes % (Manual) 3.0 % (13.4-35.0) L 02/24/21 04:25 Reactive Lymphs % (Man) 1.0 % 01/27/21 05:29 Monocytes % (Manual) 11.0 % (0.0-7.3) H 02/24/21 04:25 Eosinophils % (Manual) 1.0 % (0.0-4.3) 02/24/21 04:25 Basophils % (Manual) 1.0 % (0.0-1.8) 02/24/21 04:25 Metamyelocytes % 2.0 % 02/24/21 04:25 Nucleated RBC % Not Reportable 02/24/21 04:25 Seg Neutrophils # 9.8 K/mm3 (1.8-7.7) H 03/07/21 08:01 Seg Neutrophils # Man 9.4 K/mm3 (1.8-7.7) H 02/24/21 04:25 Band Neutrophils # 0.0 K/mm3 02/24/21 04:25 Lymphocytes # (Manual) 0.3 K/mm3 (1.2-5.4) L 02/24/21 04:25 Abs React Lymphs (Man) 0.0 K/mm3 02/24/21 04:25 Monocytes # (Manual) 1.3 K/mm3 (0.0-0.8) H 02/24/21 04:25 Eosinophils # (Manual) 0.1 K/mm3 (0.0-0.4) 02/24/21 04:25 Basophils # (Manual) 0.1 K/mm3 (0.0-0.1) 02/24/21 04:25 Metamyelocytes # 0.2 K/mm3 02/24/21 04:25 Myelocytes # 0.0 K/mm3 02/24/21 04:25 Promyelocytes # 0.0 K/mm3 02/24/21 04:25 Blast Cells # 0.0 K/mm3 02/24/21 04:25 WBC Morphology Not Reportable 02/24/21 04:25 Hypersegmented Neuts Not Reportable 02/24/21 04:25 Hyposegmented Neuts Not Reportable 02/24/21 04:25 Hypogranular Neuts Not Reportable 02/24/21 04:25 Smudge Cells Not Reportable 02/24/21 04:25 Toxic Granulation Not Reportable 02/24/21 04:25 Toxic Vacuolation Not Reportable 02/24/21 04:25 Dohle Bodies Not Reportable 02/24/21 04:25 Pelger-Huet Anomaly Not Reportable 02/24/21 04:25 Fátima Rods Not Reportable 02/24/21 04:25 Platelet Estimate Consistent w auto 02/24/21 04:25 Clumped Platelets Not Reportable 02/24/21 04:25 Plt Clumps, EDTA Not Reportable 02/24/21 04:25 Large Platelets Not Reportable 02/24/21 04:25 Giant Platelets Not Reportable 02/24/21 04:25 Platelet Satelliting Not Reportable 02/24/21 04:25 Plt Morphology Comment Not Reportable 02/24/21 04:25 RBC Morphology Not Reportable 02/24/21 04:25 Dimorphic RBCs Not Reportable 02/24/21 04:25 Polychromasia Few 02/24/21 04:25 Hypochromasia Not Reportable 02/24/21 04:25 Poikilocytosis Not Reportable 02/24/21 04:25 Anisocytosis 1+ 02/24/21 04:25 Microcytosis Not Reportable 02/24/21 04:25 Macrocytosis Not Reportable 02/24/21 04:25 Spherocytes Not Reportable 02/24/21 04:25 Pappenheimer Bodies Not Reportable 02/24/21 04:25 Sickle Cells Not Reportable 02/24/21 04:25 Target Cells Not Reportable 02/24/21 04:25 Tear Drop Cells Not Reportable 02/24/21 04:25 Ovalocytes Not Reportable 02/24/21 04:25 Helmet Cells Not Reportable 02/24/21 04:25 Potter-Lyons Switch Bodies Not Reportable 02/24/21 04:25 [place] Rings Not Reportable 02/24/21 04:25 Ludmila Cells Not Reportable 02/24/21 04:25 Bite Cells Not Reportable 02/24/21 04:25 Crenated Cell Not Reportable 02/24/21 04:25 Elliptocytes Not Reportable 02/24/21 04:25 Acanthocytes (Spur) Not Reportable 02/24/21 04:25 Rouleaux Not Reportable 02/24/21 04:25 Hemoglobin C Crystals Not Reportable 02/24/21 04:25 Schistocytes Not Reportable 02/24/21 04:25 Malaria parasites Not Reportable 02/24/21 04:25 Aquiles Bodies Not Reportable 02/24/21 04:25 Hem Pathologist Commnt No 02/24/21 04:25 PT 14.6 Sec. (12.2-14.9) 03/03/21 Unknown INR 1.15 (0.87-1.13) H 03/03/21 Unknown D-Dimer 6536.84 ng/mlDDU (0-234) H 02/25/21 09:03 ABG pH 7.227 (7.320-7.450) L 03/11/21 03:20 POC ABG pCO2 78.7 mmHg (32.0-48.0) H 03/11/21 03:20 ABG pCO2 72.4 mm Hg 03/06/21 17:45 POC ABG pO2 82.1 mmHg (83-108) L 03/11/21 03:20 ABG pO2 78.1 mm Hg (80.0-90.0) L 03/06/21 17:45 POC ABG HCO3 32.0 03/11/21 03:20 ABG HCO3 33.7 mmol/L (20.0-26.0) H 03/06/21 17:45 ABG O2 Saturation 95.2 (0-100) 03/11/21 03:20 ABG O2 Content 13.5 (0.0-44) 03/06/21 17:45 POC ABG Base Excess 3.4 03/11/21 03:20 ABG Base Excess 5.5 mmol/L (-2.0-3.0) H 03/06/21 17:45 ABG Hemoglobin 8.1 (12.0-17.5) L 03/11/21 03:20 ABG Oxyhemoglobin 94.2 (94-98) 03/11/21 03:20 ABG Carboxyhemoglobin 2.3 % (0.0-5.0) 03/06/21 17:45 ABG Methemoglobin 0.1 (0.0-1.5) 03/11/21 03:20 ABG Sodium 154.2 mmol/L (136.0-145.0) H 03/11/21 03:20 ABG Potassium 4.0 mmol/L (3.40-4.50) 03/11/21 03:20 ABG Chloride 117.0 mmol/L (98-107) H 03/11/21 03:20 ABG Glucose 196 mg/dL (65-95) H 03/11/21 03:20 Oxyhemoglobin 92.3 % (95.0-99.0) L 03/06/21 17:45 Carboxyhemoglobin 1.0 (0.5-1.5) 03/11/21 03:20 FiO2 55 % 03/06/21 17:45 FiO2 % 85.0 03/11/21 03:20 Sodium 156 mmol/L (137-145) H 03/11/21 04:40 Potassium 4.0 mmol/L (3.6-5.0) 03/11/21 04:40 Chloride 117.0 mmol/L (98-107) H 03/11/21 04:40 Carbon Dioxide 32 mmol/L (22-30) H 03/11/21 04:40 Anion Gap 11 mmol/L 03/11/21 04:40 BUN 96 mg/dL (9-20) H 03/11/21 04:40 Creatinine 2.0 mg/dL (0.8-1.3) H 03/11/21 04:40 Estimated GFR 41 ml/min 03/11/21 04:40 BUN/Creatinine Ratio 48 % 03/11/21 04:40 Glucose 175 mg/dL (75-100) H 03/11/21 04:40 POC Glucose 177 mg/dL (70-105) H 03/11/21 06:11 Hemoglobin A1c 6.3 % (4-6) H 02/02/21 16:00 Lactic Acid 1.90 mmol/L (0.7-2.0) 01/24/21 14:38 Calcium 7.5 mg/dL (8.4-10.2) L 03/11/21 04:40 Phosphorus 7.90 mg/dL (2.5-4.5) H 02/21/21 16:35 Magnesium 2.60 mg/dL (1.7-2.3) H 02/21/21 16:35 Ferritin 867.8 ng/mL (30.0-300.0) H 02/26/21 05:48 Total Bilirubin 1.50 mg/dL (0.1-1.2) H 01/26/21 05:47 AST 37 units/L (5-40) 01/26/21 05:47 ALT 29 units/L (7-56) 01/26/21 05:47 Alkaline Phosphatase 70 units/L (35-129) 01/26/21 05:47 Lactate Dehydrogenase 345 units/L (91-180) H 02/19/21 05:45 C-Reactive Protein 5.90 mg/dL (0.00-1.30) H 02/26/21 05:48 Total Protein 7.2 g/dL (6.3-8.2) 01/26/21 05:47 Albumin 2.2 g/dL (3.9-5) L 01/26/21 05:47 Albumin/Globulin Ratio 0.4 % 01/26/21 05:47 Triglycerides 195 mg/dL (2-149) H 02/19/21 05:45 Procalcitonin 18.94 ng/mL (<0.15) 02/16/21 17:09 Arterial Blood Glucose 196 mg/dL (65-95) H 03/11/21 03:20 Arterial Blood Ionized Calcium 4.5 mg/dL (4.6-5.3) L 03/11/21 03:20 Urine Color Nehal (Yellow) 01/22/21 22:39 Urine Turbidity Cloudy (Clear) 01/22/21 22:39 Urine pH 5.0 (5.0-7.0) 01/22/21 22:39 Ur Specific Cullen 1.017 (1.003-1.030) 01/22/21 22:39 Urine Protein 100 mg/dl mg/dL (Negative) 01/22/21 22:39 Urine Glucose (UA) Neg mg/dL (Negative) 01/22/21 22:39 Urine Ketones Neg mg/dL (Negative) 01/22/21 22:39 Urine Blood Mod (Negative) 01/22/21 22:39 Urine Nitrite Neg (Negative) 01/22/21 22:39 Urine Bilirubin Neg (Negative) 01/22/21 22:39 Urine Urobilinogen 2.0 mg/dL (<2.0) 01/22/21 22:39 Ur Leukocyte Esterase Mod (Negative) 01/22/21 22:39 Urine WBC (Auto) < 1.0 /HPF (0.0-6.0) 01/22/21 22:39 Urine RBC (Auto) < 1.0 /HPF (0.0-6.0) 01/22/21 22:39 U Epithel Cells (Auto) < 1.0 /HPF (0-13.0) 01/22/21 22:39 Urine Osmolality 416 Mosm/kg 01/30/21 12:15 Urine Total Volume 1800 ml 03/05/21 Unknown Urine Total Volume 1800 ml 03/05/21 Unknown Urine Creatinine 65.9 mg/dL (0.1-20.0) H 03/05/21 Unknown Urine Creatinine 66.1 mg/dL (0.1-20.0) H 03/05/21 Unknown Ur Creatinine 24 Hour 1.2 (0.8-2.8) 03/05/21 Unknown Height (in) 68.0 inches 03/05/21 Unknown Weight (lb) 283.3 lbs 03/05/21 Unknown Creatinine Clearance 26 03/05/21 Unknown Urine Sodium 28 mmol/L 01/22/21 22:39 Nasal Screen MRSA (PCR) Negative (Negative) 02/02/21 13:20 Random Vancomycin 13.7 ug/mL (0-40.0) 02/07/21 10:40 Coronavirus (PCR) Positive (Negative) A 03/02/21 08:35 Hepatitis A IgM Ab Non-reactive (NonReactive) 02/03/21 Unknown Hep Bs Antigen Non-reactive (Negative) 02/03/21 Unknown Hep B Core IgM Ab Non-reactive (NonReactive) 02/03/21 Unknown Hepatitis C Antibody Non-reactive (NonReactive) 02/03/21 Unknown Blood Type B POSITIVE 03/10/21 22:28 Antibody Screen Negative 03/10/21 22:28 Crossmatch See Detail 03/10/21 22:28 Microbiology: Microbiology 03/10/21 Unknown Peripheral/Venous Blood Culture - Preliminary NO GROWTH AFTER 24 HOURS 03/10/21 Unknown Peripheral/Venous Blood Culture - Preliminary NO GROWTH AFTER 24 HOURS Black/IV: Voiding Method Indwelling Catheter Active Medications - Current Medications Current Medications: Generic Name Dose Route Start Last Admin Trade Name Freq PRN Reason Stop Dose Admin Acetaminophen 650 mg 01/24/21 12:58 03/11/21 04:38 Acetaminophen 325 Mg/10.15 Ml Oral Liqd Unit Dose FEEDTUBE 650 mg Q6H PRN Administration Pain, Mild (1-3) Lipase/Protease/Amylase 1 each 01/26/21 14:25 Lipase 10,500/Protease 25,000/Amylase 43,750 (Units) Dr Cap FEEDTUBE PRN PRN For Clogged Feeding Tube Dextrose 50 ml 01/27/21 07:24 Dextrose 50% In Water (25gm) 50 Ml Syringe IV Q30MIN PRN Hypoglycemia Protocol Fentanyl 50 mcg 01/22/21 22:39 02/25/21 10:25 Fentanyl 100 Mcg/2 Ml Inj IV 50 mcg Q10MIN PRN Administration ANALGESIA Heparin Sodium (Porcine) 2,000 unit 02/11/21 09:38 02/21/21 21:25 Heparin 10,000 Units/10 Ml Vial IV 2,000 unit SAGRARIO PRN Administration hemodialysis Heparin Sodium (Porcine) 5,000 unit 02/19/21 14:00 03/11/21 13:03 Heparin 5,000 Unit/1 Ml Vial SUB-Q 5,000 unit Q8HR CECE Administration Fentanyl Citrate 2,000 mcg in 100 mls @ 6.124 mls/hr 01/22/21 23:00 03/11/21 14:21 Fentanyl Drip Premix IV 3 mcg/kg/hr TITR CECE 18.371 mls/hr Administration Protocol 1 MCG/KG/HR Propofol 1,000 mg in 100 mls @ 3.674 mls/hr 01/22/21 23:45 02/21/21 08:30 Diprivan 10 Mg/Ml IV 0 mcg/kg/min TITR CECE 0 mls/hr Titration Protocol 5 MCG/KG/MIN Dexmedetomidine HCl 1,000 mcg/ 260 mls @ 6.368 mls/hr 01/30/21 20:00 03/11/21 08:27 Sodium Chloride IV 1.2 mcg/kg/hr TITRATE CECE 38.211 mls/hr Administration Protocol 0.2 MCG/KG/HR Norepinephrine 4 mg in 250 mls @ 7.5 mls/hr 03/09/21 00:18 03/11/21 14:25 Levophed Drip 4 Mg/Ns 250 Ml IV 4 mcg/min TITR CECE 15 mls/hr Administration Protocol 2 MCG/MIN Dextrose 1,000 mls @ 50 mls/hr 03/11/21 12:00 03/11/21 12:57 D5w IV 50 mls/hr DIRECT CECE Administration Lansoprazole 30 mg 02/18/21 10:00 03/11/21 09:44 Lansoprazole 30 Mg Solutab FEEDTUBE 30 mg QDAY CECE Administration Neomycin/Polymyxin/Bacitracin 1 applic 03/02/21 15:00 03/11/21 08:15 Neomy 3.5 Mg/Bacit 400 Units/Poly B 5000 Units/Gm Oint Packet TP 1 applic TID CECE Administration Senna/Docusate Sodium 1 tab 02/25/21 10:00 03/11/21 09:44 Sennosides/Docusate Sodium 8.6/50 Mg Tab PO 1 tab BID CECE Administration Simple Syrup 15 ml 01/26/21 14:25 02/21/21 21:24 Simple Syrup 15 Ml FEEDTUBE 15 ml PRN PRN Administration Hypoglycemia Simple Syrup 30 ml 01/26/21 14:25 Simple Syrup 15 Ml FEEDTUBE PRN PRN Hypoglycemia Sodium Bicarbonate 325 mg 01/26/21 14:25 Sodium Bicarbonate 325 Mg Tab FEEDTUBE PRN PRN For Clogged Feeding Tube Sodium Hypochlorite 1 applic 03/05/21 22:00 03/11/21 10:48 Sodium Hypochlorite, Dakin's 1/2 Strength (0.25%) 473 Ml Topical Soln TP 1 applicatio BID CECE Administration Nutrition/Malnutrition Assess - Dietary Evaluation Nutrition/Malnutrition Findings: Nutrition Notes Start: 01/26/21 13:59 Freq: Status: Active Protocol: Document 03/09/21 14:24 [facility] (Rec: 03/09/21 14:36 [facility] [id number]) Nutrition Notes Initial or Follow up Reassessment Current Diagnosis Acute Kidney Injury,Diabetes, Sepsis,Respiratory Failure Other Pertinent Diagnosis COVID-19 (+) Current Diet TF - Nepro at 46ml/hr Labs/Tests Na 157 BUN 96 Cr 1.7 BG 167 Pertinent Medications Levophed gtt Height 5 ft 8 in Weight 129.8 kg [place] Body Weight (kg) 70.00 BMI 43.4 Weight change and time frame Wt change noted. Weight Status Morbidly Obese Subjective/Other Information Spoke with RN via phone. HD has been d/c'ed. Pt remains on vent support. Pt tolerating TF at goal rate; receives 200ml water flush q4h . Pt with poor prognosis. Percent of energy/protein needs met: 100% energy 51% pro Burn Absent Trauma Absent #2 Nutrition Diagnosis Increased nutrient needs ( specify in comment below) Diagnosis Progress(for reassessment Continues documentation) #1 Nutrition Diagnosis Inadequate oral intake Diagnosis Progress(for reassessment Continues documentation) Is patient on ventilator? Yes Is Patient Ambulatory and/or Out of Bed No REE-([place]-confined to bed) 2491.392 Kcal/Kg value to use for calculation 14 Approximate Energy Requirements Using 1817 kcal/Kg Calculation Used for Recommendations Kcal/kg Additional Notes Pro needs up to 2.5g/kg IBW: up to 175g/day Fluid needs per MD. Nutrition Intervention Nutrition Support: Continue Nepro at 46 ml/hr with a free water flush of 200 ml q4h. Kcal 1,987 Protein (gm) 89 Fluid (mL) 803 Goal #1 TF tolerance Goal #2 TF to meet nutrient needs as best possible Follow-Up By: 03/16/21 Additional Comments F/U: stable TF, vent status, renal function, Na lab/water flushes
--- NOTE | 2021-03-11 15:19 | Progress Note ---
Assessment and Plan Assessment: Acute Hypoxic respiratory failure COVID-19 PNA Severe sepsis with septic shock Acute kidney injury secondary to ATN Hyperkalemia Hypernatremia DM2 on insulin Plan: Renal function reviewed, SCr level was 2.0 today, yesterday's SCr level was 2.0 Repeat 24 hr urine creatinine clearance On levaphed drip On D5W infusion at 50 ml/hr Strict I&O Renally dose meds Intake= 5501 ml Output= 2020 ml (Net= 3481 ml) Renal plan reviewed by Dr Sams Subjective Date of service: 03/11/21 Principal diagnosis: Acute respiratory failure Interval history: Pt intubated in ICU, spoke with ICU nurse, pt still on levaphed drip Objective - Exam Narrative Exam: On isolation for COVID-19, pt not examined to limit direct contact/resources of PPE, reviewed medical chart, labs, and notes - Vital Signs Vital signs: Vital Signs - 12hr 03/11/21 03/11/21 03/11/21 03:30 03:44 04:00 Temperature 99.2 F 101.7 F H Pulse Rate 101 H 100 H 101 H Respiratory 26 H 26 H 25 H Rate Respiratory Rate [Chest] Blood Pressure 113/56 114/60 111/62 O2 Sat by Pulse 94 95 94 Oximetry 03/11/21 03/11/21 03/11/21 04:30 05:00 05:30 Temperature Pulse Rate 101 H 100 H 104 H Respiratory 20 28 H 25 H Rate Respiratory Rate [Chest] Blood Pressure 115/56 114/58 105/57 O2 Sat by Pulse 94 95 94 Oximetry 03/11/21 03/11/21 03/11/21 06:00 06:30 07:00 Temperature 99.3 F Pulse Rate 112 H 118 H 118 H Respiratory 25 H 26 H 27 H Rate Respiratory Rate [Chest] Blood Pressure 102/53 99/55 101/58 O2 Sat by Pulse 92 91 93 Oximetry 03/11/21 03/11/21 03/11/21 07:30 08:00 08:05 Temperature Pulse Rate 120 H 114 H 112 H Respiratory 21 28 H Rate Respiratory Rate [Chest] Blood Pressure 102/59 115/64 102/53 O2 Sat by Pulse 93 94 92 Oximetry 03/11/21 03/11/21 03/11/21 08:30 09:00 09:30 Temperature Pulse Rate 111 H 106 H 106 H Respiratory 27 H 28 H 19 Rate Respiratory Rate [Chest] Blood Pressure 109/60 93/55 89/59 O2 Sat by Pulse 93 91 91 Oximetry 03/11/21 03/11/21 03/11/21 10:00 10:30 11:00 Temperature Pulse Rate 102 H 103 H 105 H Respiratory 29 H 27 H 24 Rate Respiratory 29 H Rate [Chest] Blood Pressure 97/53 88/55 92/53 O2 Sat by Pulse 91 93 93 Oximetry 03/11/21 03/11/21 03/11/21 11:30 11:51 12:00 Temperature 98.3 F Pulse Rate 105 H 103 H Respiratory 17 28 H Rate Respiratory Rate [Chest] Blood Pressure 87/60 97/55 O2 Sat by Pulse 92 89 Oximetry 03/11/21 12:21 Temperature Pulse Rate 103 H Respiratory Rate Respiratory Rate [Chest] Blood Pressure 97/55 O2 Sat by Pulse 89 Oximetry - Lab 03/11/21 04:40 03/11/21 04:40 Most recent lab results ABG pH 7.227 (7.320-7.450) L 03/11/21 03:20 ABG pCO2 72.4 mm Hg 03/06/21 17:45 ABG pO2 78.1 mm Hg (80.0-90.0) L 03/06/21 17:45 ABG HCO3 33.7 mmol/L (20.0-26.0) H 03/06/21 17:45 ABG O2 Saturation 95.2 (0-100) 03/11/21 03:20 Calcium 7.5 mg/dL (8.4-10.2) L 03/11/21 04:40 Phosphorus 7.90 mg/dL (2.5-4.5) H 02/21/21 16:35 Magnesium 2.60 mg/dL (1.7-2.3) H 02/21/21 16:35 Urine Creatinine 65.9 mg/dL (0.1-20.0) H 03/05/21 Unknown Urine Creatinine 66.1 mg/dL (0.1-20.0) H 03/05/21 Unknown Urine Sodium 28 mmol/L 01/22/21 22:39 Medications & Allergies - Medications Allergies/Adverse Reactions: Allergies No Known Allergies Allergy (Unverified 03/12/20 13:41) Home Medications: Home Medications Medication Instructions Recorded Confirmed Last Taken Type Insulin NPH/Regular [Novolin 70/30] 18 unit SUB-Q TIDAC #1 vial 03/12/2001/18 Unknown Rx Syringe-Needle,Insulin,0.5 ml 1 box MC TID #1 box 03/12/20 03/02/21 Unknown Rx [Insulin Syringe/Needle 0.5 ML] Active Medications: Generic Name Dose Route Start Last Admin Trade Name Freq PRN Reason Stop Dose Admin Acetaminophen 650 mg 01/24/21 12:58 03/11/21 04:38 Acetaminophen 325 Mg/10.15 Ml Oral Liqd Unit Dose FEEDTUBE 650 mg Q6H PRN Administration Pain, Mild (1-3) Lipase/Protease/Amylase 1 each 01/26/21 14:25 Lipase 10,500/Protease 25,000/Amylase 43,750 (Units) Dr Cap FEEDTUBE PRN PRN For Clogged Feeding Tube Dextrose 50 ml 01/27/21 07:24 Dextrose 50% In Water (25gm) 50 Ml Syringe IV Q30MIN PRN Hypoglycemia Protocol Fentanyl 50 mcg 01/22/21 22:39 02/25/21 10:25 Fentanyl 100 Mcg/2 Ml Inj IV 50 mcg Q10MIN PRN Administration ANALGESIA Heparin Sodium (Porcine) 2,000 unit 02/11/21 09:38 02/21/21 21:25 Heparin 10,000 Units/10 Ml Vial IV 2,000 unit SAGRARIO PRN Administration hemodialysis Heparin Sodium (Porcine) 5,000 unit 02/19/21 14:00 03/11/21 13:03 Heparin 5,000 Unit/1 Ml Vial SUB-Q 5,000 unit Q8HR CECE Administration Fentanyl Citrate 2,000 mcg in 100 mls @ 6.124 mls/hr 01/22/21 23:00 03/11/21 14:21 Fentanyl Drip Premix IV 3 mcg/kg/hr TITR CECE 18.371 mls/hr Administration Protocol 1 MCG/KG/HR Propofol 1,000 mg in 100 mls @ 3.674 mls/hr 01/22/21 23:45 02/21/21 08:30 Diprivan 10 Mg/Ml IV 0 mcg/kg/min TITR CECE 0 mls/hr Titration Protocol 5 MCG/KG/MIN Dexmedetomidine HCl 1,000 mcg/ 260 mls @ 6.368 mls/hr 01/30/21 20:00 03/11/21 08:27 Sodium Chloride IV 1.2 mcg/kg/hr TITRATE CECE 38.211 mls/hr Administration Protocol 0.2 MCG/KG/HR Norepinephrine 4 mg in 250 mls @ 7.5 mls/hr 03/09/21 00:18 03/11/21 14:25 Levophed Drip 4 Mg/Ns 250 Ml IV 4 mcg/min TITR CECE 15 mls/hr Administration Protocol 2 MCG/MIN Dextrose 1,000 mls @ 50 mls/hr 03/11/21 12:00 03/11/21 12:57 D5w IV 50 mls/hr DIRECT CECE Administration Lansoprazole 30 mg 02/18/21 10:00 03/11/21 09:44 Lansoprazole 30 Mg Solutab FEEDTUBE 30 mg QDAY CECE Administration Neomycin/Polymyxin/Bacitracin 1 applic 03/02/21 15:00 03/11/21 14:00 Neomy 3.5 Mg/Bacit 400 Units/Poly B 5000 Units/Gm Oint Packet TP Not Given TID CECE Senna/Docusate Sodium 1 tab 02/25/21 10:00 03/11/21 09:44 Sennosides/Docusate Sodium 8.6/50 Mg Tab PO 1 tab BID CECE Administration Simple Syrup 15 ml 01/26/21 14:25 02/21/21 21:24 Simple Syrup 15 Ml FEEDTUBE 15 ml PRN PRN Administration Hypoglycemia Simple Syrup 30 ml 01/26/21 14:25 Simple Syrup 15 Ml FEEDTUBE PRN PRN Hypoglycemia Sodium Bicarbonate 325 mg 01/26/21 14:25 Sodium Bicarbonate 325 Mg Tab FEEDTUBE PRN PRN For Clogged Feeding Tube Sodium Hypochlorite 1 applic 03/05/21 22:00 03/11/21 10:48 Sodium Hypochlorite, Dakin's 1/2 Strength (0.25%) 473 Ml Topical Soln TP 1 applicatio BID CECE Administration
[2021-03-11 17:13] LABS: Creatinine 24 Hour,Urine 0.8 (0.8-2.8); Creatinine,Urine 50.8 mg/dL (0.1-20.0)
[2021-03-11] MEDS ORDERED: SODIUM CHLORIDE 0.9% 500 ML 500 ML IV ONE (20:18)
[2021-03-11] MEDS ORDERED: VANCOMYCIN/NS 1 GM/250 ML 1 GM/250 ML BAG IV ONE (20:18)
[2021-03-11] MEDS ORDERED: VASOPRESSIN 20 UNIT in SODIUM CHLORIDE 0.9% 100 ML IV SCH (22:17)
[2021-03-11] MEDS ORDERED: MEROPENEM/NS 500 MG/50 ML 500 MG/50 ML BAG IV SCH (22:30)
[2021-03-11] MEDS ORDERED: SODIUM CHLORIDE 0.9% 500 ML 1,000 ML IV ONE (23:02)
[2021-03-12] MEDS ORDERED: EPINEPHrine 1 MG/1 ML 8 MG in SODIUM CHLORIDE 0.9% 250ML 242 ML IV SCH (01:24)
[2021-03-12] MEDS: NORepinephrine/NS 4 MG-250 ML 4 MG/250 ML BAG IV SCH ×6 (02:57→16:20)
[2021-03-12] MEDS: HEPARIN 5,000 UNIT/1 ML VIAL SUB-Q SCH ×3 (04:32→17:35)
[2021-03-12] MEDS: fentaNYL DRIP Premix 2,000 MCG/100 ML BAG IV SCH ×2 (04:52→15:12)
[2021-03-12 05:24] LABS: Hemoglobin 7.8 gm/dl (11.8-15.2); Mean Corpuscular HGB Conc 30 % (32-34); Mean Corpuscular Volume 101 fl (84-94); Platelet Count 378 K/mm3 (140-440); Red Blood Count 2.59 M/mm3 (3.65-5.03); Red Cell Distribution Width 19.7 % (13.2-15.2)
[2021-03-12 05:47] LABS: Calcium 7.8 mg/dL (8.4-10.2)
[2021-03-12 06:21] LABS: Nucleated Red Blood Cells 1.5 % (0.0-0.9); Total Cells Counted 200
[2021-03-12 06:22] LABS: Anisocytosis 1+; Platelet Estimate Consistent w Auto
--- NOTE | 2021-03-12 08:53 | XRay Report ---
XR chest 1V ap INDICATION / CLINICAL INFORMATION: f/u resp fx on MVS. COMPARISON: 03/10/2021 FINDINGS: SUPPORT DEVICES: Unchanged. HEART /PULMONARY VASCULATURE: Unchanged. LUNGS / PLEURA: Airspace disease is worse compared to the prior examination. Small right pleural eff usion is unchanged. No pneumothorax. IMPRESSION: 1. Worsening airspace disease. Signer Name: Abdifatah Cabrera MD Signed: 03/12/2021 8:49 AM Workstation Name: [id number]
[2021-03-12] MEDS: NEOMY 3.5 MG/BACIT 400 UNITS/POLY B 5000 UNITS/GM OINT PACKET TP SCH ×2 (09:43→17:36)
[2021-03-12] MEDS: SENNOSIDES/DOCUSATE SODIUM 8.6/50 MG TAB PO SCH (09:44)
[2021-03-12] MEDS: LANSOPRAZOLE 30 MG SOLUTAB FEEDTUBE SCH (09:44)
[2021-03-12] MEDS ORDERED: MEROPENEM/NS 1 GRAM/100 ML 1 GRAM/100 ML BAG IV SCH (10:00)
--- NOTE | 2021-03-12 12:05 | Progress Note ---
Assessment and Plan Acute Hypoxic respiratory failure COVID-19 PNA Severe sepsis with septic shock Acute kidney injury secondary to ATN Hyperkalemia Hypernatremia DM2 on insulin Plan: Cr and BUN cont to rise slowly, however, with adequate UOP and Cr clearance ~17 CXr noted to for worsening airway disease, cont D5W for hypernatremia, can use lasix if needed Strict I&O Renally dose meds Subjective Date of service: 03/12/21 Principal diagnosis: Acute respiratory failure Interval history: remains intubated Objective - Vital Signs Vital signs: Vital Signs - 12hr 03/12/21 03/12/21 03/12/21 00:16 00:27 00:30 Temperature Pulse Rate 118 H 119 H 119 H Pulse Rate [ Right Dorsalis Pedis] Respiratory 28 H 29 H Rate Blood Pressure 117/41 117/41 61/40 O2 Sat by Pulse 94 93 93 Oximetry 03/12/21 03/12/21 03/12/21 00:46 01:00 01:16 Temperature Pulse Rate 121 H 122 H 121 H Pulse Rate [ Right Dorsalis Pedis] Respiratory 28 H 26 H 28 H Rate Blood Pressure 96/24 116/92 119/43 O2 Sat by Pulse 92 93 92 Oximetry 03/12/21 03/12/21 03/12/21 01:30 01:46 02:00 Temperature Pulse Rate 126 H 121 H 120 H Pulse Rate [ Right Dorsalis Pedis] Respiratory 31 H 28 H 28 H Rate Blood Pressure 123/66 152/123 152/123 O2 Sat by Pulse 92 91 91 Oximetry 03/12/21 03/12/21 03/12/21 02:16 02:30 02:46 Temperature Pulse Rate 121 H 124 H 121 H Pulse Rate [ Right Dorsalis Pedis] Respiratory 27 H 28 H 28 H Rate Blood Pressure 117/31 117/31 134/49 O2 Sat by Pulse 92 92 91 Oximetry 03/12/21 03/12/21 03/12/21 02:59 03:00 03:16 Temperature Pulse Rate 122 H 125 H 122 H Pulse Rate [ 124 H Right Dorsalis Pedis] Respiratory 28 H 28 H 29 H Rate Blood Pressure 134/49 132/64 O2 Sat by Pulse 91 91 91 Oximetry 03/12/21 03/12/21 03/12/21 03:30 03:46 03:50 Temperature Pulse Rate 125 H 121 H 121 H Pulse Rate [ Right Dorsalis Pedis] Respiratory 28 H 28 H Rate Blood Pressure 127/55 141/39 141/39 O2 Sat by Pulse 92 91 91 Oximetry 03/12/21 03/12/21 03/12/21 04:00 04:16 04:30 Temperature 100.2 F H Pulse Rate 122 H 122 H 122 H Pulse Rate [ Right Dorsalis Pedis] Respiratory 29 H 28 H 28 H Rate Blood Pressure 141/39 122/52 139/37 O2 Sat by Pulse 93 92 93 Oximetry 03/12/21 03/12/21 03/12/21 04:46 04:55 05:00 Temperature Pulse Rate 122 H 121 H 122 H Pulse Rate [ 84 Right Dorsalis Pedis] Respiratory 28 H 15 28 H Rate Blood Pressure 142/68 141/62 O2 Sat by Pulse 93 100 94 Oximetry 03/12/21 03/12/21 03/12/21 05:15 05:30 05:46 Temperature Pulse Rate 122 H 123 H 122 H Pulse Rate [ Right Dorsalis Pedis] Respiratory 29 H 28 H 29 H Rate Blood Pressure 150/70 150/70 147/60 O2 Sat by Pulse 93 92 93 Oximetry 03/12/21 03/12/21 03/12/21 06:00 06:15 06:30 Temperature Pulse Rate 122 H 121 H 122 H Pulse Rate [ Right Dorsalis Pedis] Respiratory 28 H 28 H 28 H Rate Blood Pressure 147/60 140/45 140/45 O2 Sat by Pulse 93 93 93 Oximetry 03/12/21 03/12/21 07:36 09:37 Temperature 99.1 F Pulse Rate 122 H Pulse Rate [ Right Dorsalis Pedis] Respiratory Rate Blood Pressure 139/55 O2 Sat by Pulse 95 Oximetry - Lab 03/12/21 04:40 03/12/21 04:40 Most recent lab results ABG pH 7.170 (7.320-7.450) L 03/12/21 03:07 ABG pCO2 72.4 mm Hg 03/06/21 17:45 ABG pO2 78.1 mm Hg (80.0-90.0) L 03/06/21 17:45 ABG HCO3 33.7 mmol/L (20.0-26.0) H 03/06/21 17:45 ABG O2 Saturation 97.2 (0-100) 03/12/21 03:07 Calcium 7.8 mg/dL (8.4-10.2) L 03/12/21 04:40 Phosphorus 7.90 mg/dL (2.5-4.5) H 02/21/21 16:35 Magnesium 2.60 mg/dL (1.7-2.3) H 02/21/21 16:35 Urine Creatinine 50.8 mg/dL (0.1-20.0) H 03/11/21 15:00 Urine Sodium 28 mmol/L 01/22/21 22:39 Medications & Allergies - Medications Allergies/Adverse Reactions: Allergies No Known Allergies Allergy (Unverified 03/12/20 13:41) Home Medications: Home Medications Medication Instructions Recorded Confirmed Last Taken Type Insulin NPH/Regular [Novolin 70/30] 18 unit SUB-Q TIDAC #1 vial 03/12/20 03/02/21 Unknown Rx Syringe-Needle,Insulin,0.5 ml 1 box MC TID #1 box 03/12/20 03/02/21 Unknown Rx [Insulin Syringe/Needle 0.5 ML] Active Medications: Generic Name Dose Route Start Last Admin Trade Name Freq PRN Reason Stop Dose Admin Acetaminophen 650 mg 01/24/21 12:58 03/11/21 04:38 Acetaminophen 325 Mg/10.15 Ml Oral Liqd Unit Dose FEEDTUBE 650 mg Q6H PRN Administration Pain, Mild (1-3) Lipase/Protease/Amylase 1 each 01/26/21 14:25 Lipase 10,500/Protease 25,000/Amylase 43,750 (Units) Dr Claudio FEEDTUBE PRN PRN For Clogged Feeding Tube Dextrose 50 ml 01/27/21 07:24 Dextrose 50% In Water (25gm) 50 Ml Syringe IV Q30MIN PRN Hypoglycemia Protocol Fentanyl 50 mcg 01/22/21 22:39 02/25/21 10:25 Fentanyl 100 Mcg/2 Ml Inj IV 50 mcg Q10MIN PRN Administration ANALGESIA Heparin Sodium (Porcine) 2,000 unit 02/11/21 09:38 02/21/21 21:25 Heparin 10,000 Units/10 Ml Vial IV 2,000 unit [place] PRN Administration hemodialysis Heparin Sodium (Porcine) 5,000 unit 02/19/21 14:00 03/12/21 10:26 Heparin 5,000 Unit/1 Ml Vial SUB-Q 5,000 unit Q8HR CECE Administration Fentanyl Citrate 2,000 mcg in 100 mls @ 6.124 mls/hr 01/22/21 23:00 03/12/21 04:52 Fentanyl Drip Premix IV 2 mcg/kg/hr TITR CECE 12.247 mls/hr Administration Protocol 1 MCG/KG/HR Propofol 1,000 mg in 100 mls @ 3.674 mls/hr 01/22/21 23:45 02/21/21 08:30 Diprivan 10 Mg/Ml IV 0 mcg/kg/min TITR CECE 0 mls/hr Titration Protocol 5 MCG/KG/MIN Dexmedetomidine HCl 1,000 mcg/ 260 mls @ 6.368 mls/hr 01/30/21 20:00 03/11/21 16:07 Sodium Chloride IV 1.2 mcg/kg/hr TITRATE CECE 38.211 mls/hr Administration Protocol 0.2 MCG/KG/HR Norepinephrine 4 mg in 250 mls @ 7.5 mls/hr 03/09/21 00:18 03/12/21 09:00 Levophed Drip 4 Mg/Ns 250 Ml IV 30 mcg/min TITR CECE 112.5 mls/hr Administration Protocol 2 MCG/MIN Vasopressin 20 unit/ Sodium 101 mls @ 9.09 mls/hr 03/11/21 22:17 03/11/21 22:30 Chloride IV 0.03 units/min TITR CECE 9.09 mls/hr Administration Protocol 0.03 UNITS/MIN Epinephrine 8 mg/ Sodium 250 mls @ 3.75 mls/hr 03/12/21 01:24 Chloride IV TITR CECE Protocol 2 MCG/MIN MEROPENEM/NS 1 GRAM/100 ML 1 gram in 100 mls @ 100 mls/hr 03/12/21 10:00 03/12/21 09:44 Merrem/Ns 1 Gram/100 Ml IV 100 mls/hr Q24H CECE Administration Protocol Lansoprazole 30 mg 02/18/21 10:00 03/12/21 09:44 Lansoprazole 30 Mg Solutab FEEDTUBE 30 mg QDAY CECE Administration Neomycin/Polymyxin/Bacitracin 1 applic 03/02/21 15:00 03/12/21 09:43 Neomy 3.5 Mg/Bacit 400 Units/Poly B 5000 Units/Gm Oint Packet TP 1 applic TID CECE Administration Senna/Docusate Sodium 1 tab 02/25/21 10:00 03/12/21 09:44 Sennosides/Docusate Sodium 8.6/50 Mg Tab PO 1 tab BID CECE Administration Simple Syrup 15 ml 01/26/21 14:25 02/21/21 21:24 Simple Syrup 15 Ml FEEDTUBE 15 ml PRN PRN Administration Hypoglycemia Simple Syrup 30 ml 01/26/21 14:25 Simple Syrup 15 Ml FEEDTUBE PRN PRN Hypoglycemia Sodium Bicarbonate 325 mg 01/26/21 14:25 Sodium Bicarbonate 325 Mg Tab FEEDTUBE PRN PRN For Clogged Feeding Tube Sodium Chloride 100 ml 03/12/21 13:00 Sodium Chloride 0.45% 1000 Ml Iv Soln IV DIRECT CECE Sodium Hypochlorite 1 applic 03/05/21 22:00 03/11/21 21:21 Sodium Hypochlorite, [place]'s 1/2 Strength (0.25%) 473 Ml Topical Soln TP Not Given BID CECE
[2021-03-12] MEDS ORDERED: DEXTROSE 5% IN WATER 1,000 ML IV SCH (13:00)
[2021-03-12] MEDS ORDERED: SODIUM CHLORIDE 0.45% 1000 ML IV SOLN IV SCH (13:00)
--- NOTE | 2021-03-12 14:33 | Progress Note ---
Assessment and Plan Assessment and plan: This is a 60-year-old male with diabetes mellitus, hypertension, hyperlipidemia, chronic renal insufficiency presents to the emergency department on 01/23 with shortness of breath, fevers chills, loss of smell and taste and body aches for the past 3 days via EMS. Per EMS patient's oxygen saturation on room air was 50% and after being placed on nonrebreather it increased 75%. Upon arrival to the emergency department patient was being bagged by EMS. In the emergency room patient was intubated due to severe hypoxia, increased work of breathing and lethargy. Patient was sedated on propofol and fentanyl. Patient presented with fever, tachycardia, tachypnea and acute hypoxic respiratory failure with PNA on CXR meeting Sepsis criteria. Lab work in the emergency department revealed hyponatremia, hypokalemia, hypochloremia, elevated CR/BUN and CXR showed bilateral pneumonia. Patient was admitted to the hospital service as a COVID-19 PUI with consults to infectious disease, nephrology and critical care medicine. 01/24/2021: Patient is intubated and sedated, patient is positive for COVID-19 in fection. ID was consulted and put on dexamethasone and remdesivir. Patient has DEISI and nephrology is following. Creatinine stable, patient is urinating. Discussed with nephrology and he is okay with remdesivir. Pulmonary critical care is following for his vent setting. PEEP of 8 and FiO2 of 85%. Patient was alert and off sedatives. 01/25/2021; patient is intubated and on mechanical ventilation. Continue with treatment of Covid. Nephrology and ID is following. Pulmonary is following for vent management 01/26: Remains on mechanical ventilation and [facility] increased his PEEP. [facility] has ordered Precedex for sedation. Possibly need to prone this p.m. No acute events reported overnight. This morning his D-dimer is greater than 10,000 and we have started him on Lovenox 120 mg daily. Nutrition has been consulted for initiation of tube feedings. Patient remains sedated on propofol 40 and fentanyl for the time my examination this morning. 01/27: Continue Lovenox, remdesivir and empiric antibiotics. Patient had a T-max of 101 overnight. The time of examination patient is on CMV 500/18/14/0.61. Kidney function slightly worsened. Sedated on fentanyl ground-level fall and Precedex. Nephrology has increased IV fluids to 100 ml/hr. Continue to trend BMP and CBC. Sedation vacation attempt by RN this AM. 01/28: Patient completed antibiotics today [facility] will paralyze patient and increase sedation. PICC line ordered for possible vasopressor therapy need. Patient's D-dimer remains greater than 10,000 and he still has hyperchloremia. Patient's kidney function has improved today. May need to prone the patient if no improvement in oxygenation is noted in the next 24 hours. The time of my examination patient is sedated with propofol, fentanyl and Precedex and is on assist control 500/18/16/0.80 hypoxic on ABG on 60% FiO2. 01/29: Patient was started on Nimbex yesterday and his ABG this morning showed respiratory acidosis with hypercapnia and his respiratory rate was increased. We will obtain a repeat ABG this afternoon. This morning patient is hypernatremic, hyperkalemic and hyperchloremic. His potassium has been corrected with the management and will obtain repeat BMP tomorrow. His kidney functions have remained stable and we will await nephrology's input. No acute events reported overnight. This morning the time my examination patient sedated with propofol, Precedex and fentanyl and paralyzed with Nimbex. He is on assist control 500/24/16 0.80. 01/30: This morning patient is hypokalemic again and was given Kayexalate. Patient has hypernatremia and hyper chloremia and his renal function is slightly worse after receiving Lasix yesterday. His D-dimer remains greater than 10,000 and he is still on a paralytic. Patient is sedated on Precedex, fentanyl, propofol. Mechanical ventilation settings seven-point //28. [facility] has decided to continue paralytics for 48 more hours and will attempt proning the patient. Increased free water flushes 300 cc every 4 hours. Patient states has restarted his antibiotics cefepime and vancomycin and recultured. 01/31/21 Hyperkalemia, Treated 02/01/21 Hyperkalemia, Treated 02/02: Patient's kidney function continues to worsen and a stat BMP this morning shows BUN/creatinine 20/6.1 and he remains hypocalcemic and hypernatremic, hypokalemic and hypochloremic. Patient received 2 g of calcium gluconate and Kayexalate and his repeat potassium was 4.3 this afternoon. He remains antibiotic therapy and steroids. Nephrology has placed the patient on bicarb drip given metabolic acidosis and has decided to hold off hemodialysis till tomorrow.The time my examination patient is sedated on fentanyl, Precedex and on assist control 500/20/12/0.70. s/p paralytic. 02/03: Today patient's ABG shows respiratory acidosis however it is improving, hypernatremia, hyperchloremia, metabolic acidosis on BMP, worsening kidney func tion BUN/creatinine 130/9.2 with hyperphosphatemia. Patient received a Vas-Cath to his right IJ for initiation of dialysis. At the time of my examination patient remains sedated on fentanyl, propofol and Precedex with vasopressor support with Levophed at 2. 02/04: At the time of examination patient was on assist control tidal volume 500, rate 40, PEEP of 12, FiO2 85%. Patient had a T-max of 100.9 and infectious disease has stopped his vancomycin given negative MRSA. This afternoon patient respiked his temperature and was pancultured again. Patient was started on hemodialysis yesterday and will receive HD again today. Patient is sedated on Precedex, propofol, fentanyl and remains on Levophed. He is on assist control tidal volume 500, rate of 30, PEEP of 12, FiO2 of 85%. Patient still has some respiratory acidosis however his hypernatremia and hyperchloremia have improved and his metabolic acidosis has resolved. Patient will receive hemodialysis today 02/05: Patient continues to have low-grade fever temp this morning time examination he was on assist control tidal volume 500, and sedated on propofol/fentanyl/Precedex and is on Levophed. Hemodialysis per nephrology. Antibiotics per ID. Patient's blood culture from 02/04 grew gram-positive cocci in clusters in 1/2 bottles and he was started on vancomycin. 02/06: Patients ABG showed respiratory acidosis and the tracings were changed however a repeat ABG showed showed acidosis.[facility] will start a bicarb drip after giving 2 amps of bicarb push. Yesterday patient blood cultures grew gram- positive cocci and he was started on vancomycin. At the time my examination patient was on assist control tidal volume 550, rate 34, PEEP 16, FiO2 90% and sedated on fentanyl, Precedex, propofol elevated pressure support with Levophed. Bilateral lower extremity Doppler ultrasounds done yesterday showed no evidence of DVT/SVT. 02/07/2021; patient is still on the vent with PEEP of 16 and FiO2 of 90%, sedated with fentanyl Precedex and propofol. Patient still requiring Levophed. Patient was sedated yesterday and was given bicarb push. Blood culture grew gram- positive cocci in clusters and he is on vancomycin, will follow identification. 02/08/2021;patient is still on the vent with PEEP of 16 and FiO2 of 90%, sedated with fentanyl Precedex and propofol. Patient still requiring Levophed. Patient was sedated yesterday and was given bicarb push. Blood culture grew gram- positive cocci in clusters and he is on vancomycin, will follow identification. Patient is currently on dialysis. Patient is anemic transfuse if hemoglobin is below 7. 02/09: This morning patient has slight hypokalemia, hypochorlemia, hyponatremia and metabolic alkalosis. [facility] will continue bicarb gtt given that the patient does not have HD access at this time. We will replete the potassium and recheck BMP in the AM. We will type and cross in anticipation of PRBC transfusion. This morning he is sedated on Ativan, fentayl, and precedex. Will obtain a triglyceride level today in hopes to resume propofol. Patient is alkalotic and BMP however we will continue with bicarb drip per [facility] given that the patient does not have any access for hemodialysis. Anticipate replacing hemodialysis catheter tomorrow or Tuesday. The time my examination he is on AC TV 550, Rate 34, PeeP 16, FiO2 .65. 02/10: A.m. labs still pending, [facility] plans to replace HD catheter tomorrow as the patient is still febrile however his fever curve is trending down, remains on a bicarb drip and on vancomycin. Today at the time my examination patient was sedated on Precedex, Ativan and fentanyl and he is on assist control tidal 11/04/1951, rate 34, PEEP 16, FiO2 65%. Overnight patient was hypotensive and received 1 dose of midodrine. 02/11: Patient is still having low-grade temperatures that we will obtain a bilateral lower upper extremity venous Doppler ultrasound given that his repeat cultures have been negative so far. Patient received a Vas-Cath today for hemodialysis. The time examination patient is on assist control tidal volume 550, rate of 34, PEEP of 16 and FiO2 of 75%. Patient was hypokalemic and anemic yesterday which were both repleted with potassium and 1 unit PRBC. 02/12: 02/12: Patient had a 12-second run of V. tach today, his potassium and magn esium were low which was repleted. Renal adjusted potassium bath. We will obtain a triglyceride level in hopes to restarting to prevent as needed. This morning at the time my examination patient was sedated on fentanyl, Ativan and Precedex and remained on a bicarb drip. He was on assist control tidal volume 550, rate 34, PEEP 16, FiO2 85%. We will obtain a occult stool given no evident source of bleeding and need for transfusion. Anemia possibly due to hemodialysis. 02/13: Patient's T-max was 100.7, remains on fentanyl, Ativan, Precedex and bicarb drip this morning at some examination on assist control tidal volume 550, rate 34, PEEP 16 and FiO2 85%. On the labs this morning is slightly hypokalemic and remains metabolic alkalotic on BMP. His occult was positive. His Lovenox and consult GI. Patient received hemodialysis today. 02/14: cont PPI, GI recommended to scope now, monitor clinically, tolerating TF, remains intubated. Hb 6.9 today - transfuse another unit. very poor prognosis. 02/15: H&H appears to be stable following 1 unit of transfusion yesterday. Continue to hold heparin and aspirin products. Continue to monitor clinically. Poor prognosis. Wean off from vent as tolerated. 02/16: Infectious disease has signed off, his Ativan drip was discontinued and to prevent drip will be started when patient needs it. T-max 100.6 yesterday afternoon. He received hemodialysis today and at the time my examination was still on mechanical ventilation assist control tidal volume 550, rate 34, PEEP 16 on 70% FiO2. Patient was sedated on fentanyl dexamethasone and Ativan. No acute events reported overnight. 02/17: This morning patient was scheduled to get 2 units PRBC however his repeat H/H after 1 unit PRBC was 7.6/22.8 and the width of the second unit PRBC. This morning patient was sedated on fentanyl, propofol, Precedex and on assist control tolerated by 50, rate 34, PEEP of 16, FiO2 35%. Wound care was consulted today for his upper lip wound. Nephrology continues to withhold dialysis. No acute events reported overnight. Dr. Adkins was unable to co ntact family for updates. 02/18: Family updated by Dr. Adkins and Dr. Reddy. Patient had a hemo dialysis today. The time my examination patient was on assist control tidal volume 550, rate 34, PEEP 16 and FiO2 35%. Overnight patient had a CT head and he was placed on 3% FiO2 and took "a long time to recover" per RN report. 02/19: Patient's D-dimer is trending up therefore he was started on prophylactic anticoagulation, no bowel movement for several days so he was started on mag citrate today. The time examination patient is sedated on Precedex 1.2, fentanyl 3, propofol 20 on assist control tidal volume 550, rate 34, PEEP 16, 80% FiO2 and on his ABG his PaO2 is 106. RT will try to wean as tolerated. Repeat COVID-19 PCR today was positive.Dr. Adkins updated the family today. 02/20: Patient received hemodialysis today. In the time my examination patient was sedated on Precedex, fentanyl, propofol and on assist control tidal line 550, rate 34, PEEP of 16 and 75% FiO2. Patient had a bowel movement yesterday. 02/21 no new concerns at this time afebrile Hospital course remains uncomplicated. 02/22. Hospital course complicated by an episode of ectopy over the p.m. Patient required Levophed for blood pressure control. Remains intubated sedated. Tolerated hemodialysis yesterday. 02/23: At the time my examination patient is on assist control tidal volume 550, rate 34, PEEP 16, FiO2 70% and is not sedated. Patient does not follow commands however his eyes open spontaneously and he does not track/focus. 02/24: Neurology consulted, EEG pending. No acute events reported overnight. Patient remains on hyperventilation totaling 550, rate 34, PEEP of 16 on 70% FiO2. Patient received hemodialysis yesterday. 02/25: EEG from 02/24 is suggestive of encephalopathy (toxic metabolic etiology cannot be excluded). This afternoon his peak pressures and and mean airway pres sure is elevated so we obtained a CXR and ABG. Results were called to Dr. Masters. Patient received 2 mg of Versed was placed back on his sedation with fentanyl and Precedex. 02/26: Patient is on pressure ventilation FiO2 70%, Pressure inspiration 25, rate 34, PEEP 10 and sedated on fentanyl at 2mcgs and Precedex at 0.2. We will obtain a cxr for evaluation. Patient seems to be much more comfortable today. 02/27: CXr unchanged, at the time of my examination patient is on pressure control ventilation FiO2 70%, pressure support 26, rate 34 n.p.o. for 10 and sedated on fentanyl at 2 and Precedex at 0.1. His latest ABG 7.3, CO2 49, PO2 111, base excess 24. Patient is to receive hemodialysis today. No acute events reported overnight. Patient still not following commands. 02/28: Continue mechanical ventilation per pulmonary recommendations. Patient currently in AC mode ventilation rate 34, FiO2 70%, PEEP 15. 02/24 EEG finding consistent with encephalopathy and/or drug effect, possibility of toxic metabolic etiology cannot be excluded, possibility of structural lesion on the left side cannot be excluded given left being slightly slower than the right. Continue hemodialysis per nephrology. Currently with sedation of fentanyl and Precedex. Pulmonary plans for trach when ventilator settings allow. 03/01: Patient remains on mechanical ventilation AC mode, FiO2 70%, PEEP of 10. Hemodialysis initiated on 02/03/2021. Continue per nephrology. Patient will need tracheostomy once ventilator settings allow. Continue supportive care with tube feedings. Aspiration precautions. Patient appears to have penile ulceration and purulence. Consult urology for further evaluation. Prognosis remains guarded. 03/02: Tentative plan to place permacath tomorrow, patient will be n.p.o. after midnight and repeat COVID-19 PCR was ordered. Urology was consulted for a possible penile fistula. Patient received hemodialysis today. Today at the time of examination patient was on pressure control ventilation with a PEEP of 10 and FiO2 of 60 sedated on fentanyl and Precedex. 03/03: Patient noted to be anemic and ordered 1 unit of PRBC to be transfused, [facility] thinks patient has suffered from oxygen toxicity from prolonged time on high levels of oxygen (greater than 60%) for several weeks. The time my examination patient was on volume control ventilation and he remains off sedation. 03/04: Patient H/H today and 7.04/30:24 unit PRBC yesterday. Patient remains on pressure control ventilation with a pressure support of 26, FiO2 55, rate of 24 and PEEP of 10. His sedation was restarted yesterday for increase WOB and tachypnea. Patient is sedated on fentanyl and dexamethasone. We will continue current management and possibly obtain a CT head on Tuesday if no improvement in mental status. 03/05: Infectious disease has stated that the patient is noninfectious as per PermCath procedure. However patient is renal function is improving and nephrology has opted to place PermCath on Tuesday if HD is still indicated. Patient was given mag citrate today for constipation and sodium bicarbonate push. Today surgery was consulted for possible debridement of sacral wound. 03/06: Patient is sedated on fentanyl and dexamethasone on pressure control ventilation FiO2 55%, pressure support 26, rate 40 and PEEP of 10 at the time my examination. And he was switched to assist control by [facility]. Patient continues to have low-grade fevers which may be multifactorial. Given that creatinine clearance was 26 and urine output is improving nephrology has decided to hold HD for now. General surgery has debrided the sacaral wound today. Will attempt to obtain midline or PIV in order to remove CVL BILLIE. 03/07: Alert, examination patient was sedated on fentanyl and dexamethasone on assist control tidal volume 550, rate 26, PEEP of 14 and 55% FiO2. Patient renal function has remained stable and we will monitor him off of hemodialysis. RN was unable to obtain a midline or PIV. Per [facility] CVL remain and possible small clot in the left IJ visualized with ultrasound probe. Will monitor fever curve. 03/08: Overnight FiO2 requirements increased, UOP remains good, decrease in Cr, increase in Na. Spoke to bedside RN about [facility]. [facility] changed patient to PRVC. 03/09: Hypotensive. Received a bolus of fluid awaiting reevaluation may need to go back on pressors are still with intermittent low grade fever. Continues on Demadex. Not on dialysis at this time. Cafe Manager has asked that HD access be discontinued. Nurse working on that. 03/10: Transfusion ordered palpable tenderness. We will continue to monitor closely. Pulmonary following for vent management and hypercapnia. Patient may need reevaluation by GI if anemia persist. Recheck labs in a.m. prognosis remains guarded to poor 03/11: WBC showing some improvement, Bicarb drip held due to noted resp acidosis, continue supportive care. No new change. 03/12: Worsening leukocytosis, sodium and hyperkalemia. Cafe Manager following, Critical care doc also. Patient with worsening acidosis, overall prognosis is worse. Family updated per documentation. Continue care as outlined. Sepsis COVID-19 pneumonia Coag-neg Staph bacteremia Acute hypoxic and hypercapnic respiratory failure Acute kidney injury, HD initiated 02/03 Hypernatremia Hyperkalemia Anemia Diabetes mellitus Hypertension Hyperlipidemia Chronic renal insufficiency Elevated D-dimer Penile ulceration Sacral wound -CCM, nephrology, infectious disease, GI , vascular surgery, surgery, urology, neurology consulted, appreciate recommendations -s/p Antibiotic therapy, remdesivir, Steroid therapy -COVID-19 PCR positive, Pneumonia on CXR -Mechanical ventilation, wean as tolerated -VAP bundle -HD per nephrology, on hold given improvement 03/06 -S/p 5 units PRBC during stay -Trend BMP, CBC, COVID-19 inflammatory markers -Bilateral lower extremity and upper extremity Doppler ultrasound negative for DVT/SVT -SSI and Long-acting insulin -Accu-Cheks every 6 while on tube feedings -Hold home antihypertensive regimen and resume when appropriate -S/p vasopressor support -Blood pressure monitoring per protocol -S/p NaHCO3 gtt -02/17 CT head showed no acute intracranial abnormality, paranasal sinus disease -Bowel regimen, now on hold -02/24 EEG finding consistent with encephalopathy and/or drug effect, possibility of toxic metabolic etiology cannot be excluded, possibility of structural lesion on the left side cannot be excluded given left being slightly slower than the right. -Neosporin twice daily to penile shaft ulcer -01/23, 02/18, 03/02 COVID-19 PCR positive -Permcath placement pending -03/06 s/p bedside debridement with surgery -Wound care per nursing DVT/GI prophylaxis: SCDs to bilateral lower extremities while in bed, PPI, heparin subq Dispo: ICU The high probability of a clinically significant, sudden or life threatening deterioration of the [multi] system(s) required my full and direct attention, intervention and personal management. The aggregate critical care time was [35] minutes. This time is in addition to time spent performing reported procedures b ut includes the following: [x] Data Review and interpretation [x] Patient assessment and monitoring of vital signs [x] Documentation [x] Medication orders and management History Interval history: Patient seen and examined remains on full ventilatory support. Unresponsive Hospitalist Physical - Physical exam Narrative exam: General appearance: Present: no acute distress, obese, other (on mechanical ventilation, sedated) - EENT Eyes: Present: PERRL ENT: poor dentition - Neck Neck: Absent: masses or JVD, cervical LAD - Respiratory Respiratory effort: normal Respiratory: bilateral: diminished - Cardiovascular Rhythm: regular Heart Sounds: Present: S1 & S2. Absent: systolic murmur, diastolic murmur - Extremities Extremities: no ischemia, pulses intact, pulses symmetrical, normal temperature, normal color Extremity abnormal: edema Peripheral Pulses: within normal limits - Abdominal General gastrointestinal: soft, non-tender, non-distended, normal bowel sounds - Integumentary Integumentary: Present: warm, dry - Psychiatric Psychiatric: other (sedated) - Neurologic Neurologic: other (sedated) - Allied Health Allied health notes reviewed: nursing, RT - Constitutional Vitals: Temp Pulse Resp BP Pulse Ox 97.4 F L 121 H 28 H 150/26 94 03/12/21 12:26 03/12/21 12:16 03/12/21 06:30 03/12/21 12:16 03/12/21 12:16 General appearance: Present: no acute distress, obese, other (on mechanical ventilation, sedated) HEART Score - HEART Score Risk factors: 1-2 risk factors Troponin: < normal limit - Critical Actions Critical Actions: 0-3 pts:0.9-1.7%risk of adverse cardiac event.Candidate for discharge Results - Labs CBC & Chem 7: 03/12/21 04:40 03/12/21 04:40 Labs: Laboratory Last Values WBC 35.0 K/mm3 (4.5-11.0) H 03/12/21 04:40 RBC 2.59 M/mm3 (3.65-5.03) L 03/12/21 04:40 Hgb 7.8 gm/dl (11.8-15.2) L 03/12/21 04:40 Hct 26.0 % (35.5-45.6) L 03/12/21 04:40 MCV 101 fl (84-94) H 03/12/21 04:40 MCH 30 pg (28-32) 03/12/21 04:40 MCHC 30 % (32-34) L 03/12/21 04:40 RDW 19.7 % (13.2-15.2) H 03/12/21 04:40 Plt Count 378 K/mm3 (140-440) 03/12/21 04:40 Lymph % (Auto) 7.3 % (13.4-35.0) L 03/07/21 08:01 [place] % (Auto) 6.9 % (0.0-7.3) 03/07/21 08:01 Eos % (Auto) 2.2 % (0.0-4.3) 03/07/21 08:01 Baso % (Auto) 0.8 % (0.0-1.8) 03/07/21 08:01 Lymph # (Auto) 0.9 K/mm3 (1.2-5.4) L 03/07/21 08:01 [place] # (Auto) 0.8 K/mm3 (0.0-0.8) 03/07/21 08:01 Eos # (Auto) 0.3 K/mm3 (0.0-0.4) 03/07/21 08:01 Baso # (Auto) 0.1 K/mm3 (0.0-0.1) 03/07/21 08:01 Add Manual Diff Complete 03/12/21 04:40 Total Counted 200 03/12/21 04:40 Seg Neutrophils % 82.8 % (40.0-70.0) H 03/07/21 08:01 Seg Neuts % (Manual) 79.0 % (40.0-70.0) H 03/12/21 04:40 Band Neutrophils % 11.5 % 03/12/21 04:40 Lymphocytes % (Manual) 6.0 % (13.4-35.0) L 03/12/21 04:40 Reactive Lymphs % (Man) 1.0 % 01/27/21 05:29 Monocytes % (Manual) 1.0 % (0.0-7.3) 03/12/21 04:40 Eosinophils % (Manual) 1.0 % (0.0-4.3) 02/24/21 04:25 Basophils % (Manual) 1.0 % (0.0-1.8) 02/24/21 04:25 Metamyelocytes % 2.5 % 03/12/21 04:40 Nucleated RBC % 1.5 % (0.0-0.9) H 03/12/21 04:40 Seg Neutrophils # 9.8 K/mm3 (1.8-7.7) H 03/07/21 08:01 Seg Neutrophils # Man 27.7 K/mm3 (1.8-7.7) H 03/12/21 04:40 Band Neutrophils # 4.0 K/mm3 03/12/21 04:40 Lymphocytes # (Manual) 2.1 K/mm3 (1.2-5.4) 03/12/21 04:40 Abs React Lymphs (Man) 0.0 K/mm3 03/12/21 04:40 Monocytes # (Manual) 0.4 K/mm3 (0.0-0.8) 03/12/21 04:40 Eosinophils # (Manual) 0.0 K/mm3 (0.0-0.4) 03/12/21 04:40 Basophils # (Manual) 0.0 K/mm3 (0.0-0.1) 03/12/21 04:40 Metamyelocytes # 0.9 K/mm3 03/12/21 04:40 Myelocytes # 0.0 K/mm3 03/12/21 04:40 Promyelocytes # 0.0 K/mm3 03/12/21 04:40 Blast Cells # 0.0 K/mm3 03/12/21 04:40 WBC Morphology Not Reportable 03/12/21 04:40 Hypersegmented Neuts Not Reportable 03/12/21 04:40 Hyposegmented Neuts Not Reportable 03/12/21 04:40 Hypogranular Neuts Not Reportable 03/12/21 04:40 Smudge Cells Not Reportable 03/12/21 04:40 Toxic Granulation Not Reportable 03/12/21 04:40 Toxic Vacuolation Not Reportable 03/12/21 04:40 Dohle Bodies Not Reportable 03/12/21 04:40 Pelger-Huet Anomaly Not Reportable 03/12/21 04:40 Fátima Rods Not Reportable 03/12/21 04:40 Platelet Estimate Consistent w auto 03/12/21 04:40 Clumped Platelets Not Reportable 03/12/21 04:40 Plt Clumps, EDTA Not Reportable 03/12/21 04:40 Large Platelets Not Reportable 03/12/21 04:40 Giant Platelets Not Reportable 03/12/21 04:40 Platelet Satelliting Not Reportable 03/12/21 04:40 Plt Morphology Comment Not Reportable 03/12/21 04:40 RBC Morphology Not Reportable 03/12/21 04:40 Dimorphic RBCs Not Reportable 03/12/21 04:40 Polychromasia Few 03/12/21 04:40 Hypochromasia Not Reportable 03/12/21 04:40 Poikilocytosis Not Reportable 03/12/21 04:40 Anisocytosis 1+ 03/12/21 04:40 Microcytosis Not Reportable 03/12/21 04:40 Macrocytosis Not Reportable 03/12/21 04:40 Spherocytes Not Reportable 03/12/21 04:40 Pappenheimer Bodies Not Reportable 03/12/21 04:40 Sickle Cells Not Reportable 03/12/21 04:40 Target Cells Not Reportable 03/12/21 04:40 Tear Drop Cells Not Reportable 03/12/21 04:40 Ovalocytes Not Reportable 03/12/21 04:40 Helmet Cells Not Reportable 03/12/21 04:40 [place] Bodies Not Reportable 03/12/21 04:40 [place] Rings Not Reportable 03/12/21 04:40 [place] Cells Not Reportable 03/12/21 04:40 Bite Cells Not Reportable 03/12/21 04:40 Crenated Cell Not Reportable 03/12/21 04:40 Elliptocytes Not Reportable 03/12/21 04:40 Acanthocytes (Spur) Not Reportable 03/12/21 04:40 Rouleaux Not Reportable 03/12/21 04:40 Hemoglobin C Crystals Not Reportable 03/12/21 04:40 Schistocytes Not Reportable 03/12/21 04:40 Malaria parasites Not Reportable 03/12/21 04:40 Aquiles Bodies Not Reportable 03/12/21 04:40 Hem Pathologist Commnt No 03/12/21 04:40 PT 14.6 Sec. (12.2-14.9) 03/03/21 Unknown INR 1.15 (0.87-1.13) H 03/03/21 Unknown D-Dimer 6536.84 ng/mlDDU (0-234) H 02/25/21 09:03 ABG pH 7.170 (7.320-7.450) L 03/12/21 03:07 POC ABG pCO2 67.8 mmHg (32.0-48.0) H 03/12/21 03:07 ABG pCO2 72.4 mm Hg 03/06/21 17:45 POC ABG pO2 91.6 mmHg (83-108) 03/12/21 03:07 ABG pO2 78.1 mm Hg (80.0-90.0) L 03/06/21 17:45 POC ABG HCO3 24.2 03/12/21 03:07 ABG HCO3 33.7 mmol/L (20.0-26.0) H 03/06/21 17:45 ABG O2 Saturation 97.2 (0-100) 03/12/21 03:07 ABG O2 Content 13.5 (0.0-44) 03/06/21 17:45 POC ABG Base Excess -4.6 03/12/21 03:07 ABG Base Excess 5.5 mmol/L (-2.0-3.0) H 03/06/21 17:45 ABG Hemoglobin 8.6 (12.0-17.5) L 03/12/21 03:07 ABG Oxyhemoglobin 95.9 (94-98) 03/12/21 03:07 ABG Carboxyhemoglobin 2.3 % (0.0-5.0) 03/06/21 17:45 ABG Methemoglobin 0 (0.0-1.5) 03/12/21 03:07 ABG Sodium 147.5 mmol/L (136.0-145.0) H 03/12/21 03:07 ABG Potassium 4.7 mmol/L (3.40-4.50) H 03/12/21 03:07 ABG Chloride 117.0 mmol/L (98-107) H 03/12/21 03:07 ABG Glucose 184 mg/dL (65-95) H 03/12/21 03:07 Oxyhemoglobin 92.3 % (95.0-99.0) L 03/06/21 17:45 Carboxyhemoglobin 1.3 (0.5-1.5) 03/12/21 03:07 FiO2 55 % 03/06/21 17:45 FiO2 % 100.0 03/12/21 03:07 Sodium 152 mmol/L (137-145) H 03/12/21 04:40 Potassium 5.1 mmol/L (3.6-5.0) H D 03/12/21 04:40 Chloride 113.5 mmol/L (98-107) H 03/12/21 04:40 Carbon Dioxide 27 mmol/L (22-30) 03/12/21 04:40 Anion Gap 17 mmol/L 03/12/21 04:40 BUN 104 mg/dL (9-20) H 03/12/21 04:40 Creatinine 2.9 mg/dL (0.8-1.3) H 03/12/21 04:40 Estimated GFR 27 ml/min 03/12/21 04:40 BUN/Creatinine Ratio 36 % 03/12/21 04:40 Glucose 162 mg/dL (75-100) H 03/12/21 04:40 POC Glucose 201 mg/dL (70-105) H 03/12/21 11:50 Hemoglobin A1c 6.3 % (4-6) H 02/02/21 16:00 Lactic Acid 1.90 mmol/L (0.7-2.0) 01/24/21 14:38 Calcium 7.8 mg/dL (8.4-10.2) L 03/12/21 04:40 Phosphorus 7.90 mg/dL (2.5-4.5) H 02/21/21 16:35 Magnesium 2.60 mg/dL (1.7-2.3) H 02/21/21 16:35 Ferritin 867.8 ng/mL (30.0-300.0) H 02/26/21 05:48 Total Bilirubin 1.50 mg/dL (0.1-1.2) H 01/26/21 05:47 AST 37 units/L (5-40) 01/26/21 05:47 ALT 29 units/L (7-56) 01/26/21 05:47 Alkaline Phosphatase 70 units/L (35-129) 01/26/21 05:47 Lactate Dehydrogenase 345 units/L (91-180) H 02/19/21 05:45 C-Reactive Protein 5.90 mg/dL (0.00-1.30) H 02/26/21 05:48 Total Protein 7.2 g/dL (6.3-8.2) 01/26/21 05:47 Albumin 2.2 g/dL (3.9-5) L 01/26/21 05:47 Albumin/Globulin Ratio 0.4 % 01/26/21 05:47 Triglycerides 195 mg/dL (2-149) H 02/19/21 05:45 Procalcitonin 18.94 ng/mL (<0.15) 02/16/21 17:09 Arterial Blood Glucose 184 mg/dL (65-95) H 03/12/21 03:07 Arterial Blood Ionized Calcium 4.5 mg/dL (4.6-5.3) L 03/12/21 03:07 Urine Color Nehal (Yellow) 01/22/21 22:39 Urine Turbidity Cloudy (Clear) 01/22/21 22:39 Urine pH 5.0 (5.0-7.0) 01/22/21 22:39 Ur Specific Transfer 1.017 (1.003-1.030) 01/22/21 22:39 Urine Protein 100 mg/dl mg/dL (Negative) 01/22/21 22:39 Urine Glucose (UA) Neg mg/dL (Negative) 01/22/21 22:39 Urine Ketones Neg mg/dL (Negative) 01/22/21 22:39 Urine Blood Mod (Negative) 01/22/21 22:39 Urine Nitrite Neg (Negative) 01/22/21 22:39 Urine Bilirubin Neg (Negative) 01/22/21 22:39 Urine Urobilinogen 2.0 mg/dL (<2.0) 01/22/21 22:39 Ur Leukocyte Esterase Mod (Negative) 01/22/21 22:39 Urine WBC (Auto) < 1.0 /HPF (0.0-6.0) 01/22/21 22:39 Urine RBC (Auto) < 1.0 /HPF (0.0-6.0) 01/22/21 22:39 U Epithel Cells (Auto) < 1.0 /HPF (0-13.0) 01/22/21 22:39 Urine Osmolality 416 Mosm/kg 01/30/21 12:15 Urine Total Volume 1550 ml 03/11/21 15:00 Urine Creatinine 50.8 mg/dL (0.1-20.0) H 03/11/21 15:00 Ur Creatinine 24 Hour 0.8 (0.8-2.8) 03/11/21 15:00 Height (in) 68.0 inches 03/05/21 Unknown Weight (lb) 283.3 lbs 03/05/21 Unknown Creatinine Clearance 26 03/05/21 Unknown Urine Sodium 28 mmol/L 01/22/21 22:39 Nasal Screen MRSA (PCR) Negative (Negative) 02/02/21 13:20 Random Vancomycin 13.7 ug/mL (0-40.0) 02/07/21 10:40 Coronavirus (PCR) Positive (Negative) A 03/02/21 08:35 Hepatitis A IgM Ab Non-reactive (NonReactive) 02/03/21 Unknown Hep Bs Antigen Non-reactive (Negative) 02/03/21 Unknown Hep B Core IgM Ab Non-reactive (NonReactive) 02/03/21 Unknown Hepatitis C Antibody Non-reactive (NonReactive) 02/03/21 Unknown Blood Type B POSITIVE 03/10/21 22:28 Antibody Screen Negative 03/10/21 22:28 Crossmatch See Detail 03/10/21 22:28 Microbiology: Microbiology 03/10/21 Unknown Peripheral/Venous Blood Culture - Preliminary NO GROWTH AFTER 48 HOURS 03/10/21 Unknown Peripheral/Venous Blood Culture - Preliminary NO GROWTH AFTER 48 HOURS Black/IV: Voiding Method Indwelling Catheter Active Medications - Current Medications Current Medications: Generic Name Dose Route Start Last Admin Trade Name Freq PRN Reason Stop Dose Admin Acetaminophen 650 mg 01/24/21 12:58 03/11/21 04:38 Acetaminophen 325 Mg/10.15 Ml Oral Liqd Unit Dose FEEDTUBE 650 mg Q6H PRN Administration Pain, Mild (1-3) Lipase/Protease/Amylase 1 each 01/26/21 14:25 Lipase 10,500/Protease 25,000/Amylase 43,750 (Units) Dr Claudio FEEDTUBE PRN PRN For Clogged Feeding Tube Dextrose 50 ml 01/27/21 07:24 Dextrose 50% In Water (25gm) 50 Ml Syringe IV Q30MIN PRN Hypoglycemia Protocol Fentanyl 50 mcg 01/22/21 22:39 02/25/21 10:25 Fentanyl 100 Mcg/2 Ml Inj IV 50 mcg Q10MIN PRN Administration ANALGESIA Heparin Sodium (Porcine) 2,000 unit 02/11/21 09:38 02/21/21 21:25 Heparin 10,000 Units/10 Ml Vial IV 2,000 unit SAGR[place]IO PRN Administration hemodialysis Heparin Sodium (Porcine) 5,000 unit 02/19/21 14:00 03/12/21 10:26 Heparin 5,000 Unit/1 Ml Vial SUB-Q 5,000 unit Q8HR CECE Administration Fentanyl Citrate 2,000 mcg in 100 mls @ 6.124 mls/hr 01/22/21 23:00 03/12/21 04:52 Fentanyl Drip Premix IV 2 mcg/kg/hr TITR CECE 12.247 mls/hr Administration Protocol 1 MCG/KG/HR Propofol 1,000 mg in 100 mls @ 3.674 mls/hr 01/22/21 23:45 02/21/21 08:30 Diprivan 10 Mg/Ml IV 0 mcg/kg/min TITR CECE 0 mls/hr Titration Protocol 5 MCG/KG/MIN Dexmedetomidine HCl 1,000 mcg/ 260 mls @ 6.368 mls/hr 01/30/21 20:00 03/11/21 16:07 Sodium Chloride IV 1.2 mcg/kg/hr TITRATE CECE 38.211 mls/hr Administration Protocol 0.2 MCG/KG/HR Norepinephrine 4 mg in 250 mls @ 7.5 mls/hr 03/09/21 00:18 03/12/21 13:14 Levophed Drip 4 Mg/Ns 250 Ml IV 22 mcg/min TITR CECE 82.5 mls/hr Administration Protocol 2 MCG/MIN Vasopressin 20 unit/ Sodium 101 mls @ 9.09 mls/hr 03/11/21 22:17 03/11/21 22:30 Chloride IV 0.03 units/min TITR CECE 9.09 mls/hr Administration Protocol 0.03 UNITS/MIN Epinephrine 8 mg/ Sodium 250 mls @ 3.75 mls/hr 03/12/21 01:24 Chloride IV TITR CECE Protocol 2 MCG/MIN MEROPENEM/NS 1 GRAM/100 ML 1 gram in 100 mls @ 100 mls/hr 03/12/21 10:00 03/12/21 09:44 Merrem/Ns 1 Gram/100 Ml IV 100 mls/hr Q24H CECE Administration Protocol Dextrose 1,000 mls @ 75 mls/hr 03/12/21 13:00 D5w IV DIRECT CECE Lansoprazole 30 mg 02/18/21 10:00 03/12/21 09:44 Lansoprazole 30 Mg Solutab FEEDTUBE 30 mg QDAY CECE Administration Neomycin/Polymyxin/Bacitracin 1 applic 03/02/21 15:00 03/12/21 09:43 Neomy 3.5 Mg/Bacit 400 Units/Poly B 5000 Units/Gm Oint Packet TP 1 applic TID CECE Administration Senna/Docusate Sodium 1 tab 02/25/21 10:00 03/12/21 09:44 Sennosides/Docusate Sodium 8.6/50 Mg Tab PO 1 tab BID CECE Administration Simple Syrup 15 ml 01/26/21 14:25 02/21/21 21:24 Simple Syrup 15 Ml FEEDTUBE 15 ml PRN PRN Administration Hypoglycemia Simple Syrup 30 ml 01/26/21 14:25 Simple Syrup 15 Ml FEEDTUBE PRN PRN Hypoglycemia Sodium Bicarbonate 325 mg 01/26/21 14:25 Sodium Bicarbonate 325 Mg Tab FEEDTUBE PRN PRN For Clogged Feeding Tube Sodium Hypochlorite 1 applic 03/05/21 22:00 03/11/21 21:21 Sodium Hypochlorite, [place]'s 1/2 Strength (0.25%) 473 Ml Topical Soln TP Not Given BID CECE Nutrition/Malnutrition Assess - Dietary Evaluation Nutrition/Malnutrition Findings: Nutrition Notes Start: 01/26/21 13:59 Freq: Status: Active Protocol: Document 03/09/21 14:24 [facility] (Rec: 03/09/21 14:36 [facility] [id number]) Nutrition Notes Initial or Follow up Reassessment Current Diagnosis Acute Kidney Injury,Diabetes, Sepsis,Respiratory Failure Other Pertinent Diagnosis COVID-19 (+) Current Diet TF - Nepro at 46ml/hr Labs/Tests Na 157 BUN 96 Cr 1.7 BG 167 Pertinent Medications Levophed gtt Height 5 ft 8 in Weight 129.8 kg [place] Body Weight (kg) 70.00 BMI 43.4 Weight change and time frame Wt change noted. Weight Status Morbidly Obese Subjective/Other Information Spoke with RN via phone. HD has been d/c'ed. Pt remains on vent support. Pt tolerating TF at goal rate; receives 200ml water flush q4h . Pt with poor prognosis. Percent of energy/protein needs met: 100% energy 51% pro Burn Absent Trauma Absent #2 Nutrition Diagnosis Increased nutrient needs ( specify in comment below) Diagnosis Progress(for reassessment Continues documentation) #1 Nutrition Diagnosis Inadequate oral intake Diagnosis Progress(for reassessment Continues documentation) Is patient on ventilator? Yes Is Patient Ambulatory and/or Out of Bed No REE-([place]-confined to bed) 2491.392 Kcal/Kg value to use for calculation 14 Approximate Energy Requirements Using 1817 kcal/Kg Calculation Used for Recommendations Kcal/kg Additional Notes Pro needs up to 2.5g/kg IBW: up to 175g/day Fluid needs per MD. Nutrition Intervention Nutrition Support: Continue Nepro at 46 ml/hr with a free water flush of 200 ml q4h. Kcal 1,987 Protein (gm) 89 Fluid (mL) 803 Goal #1 TF tolerance Goal #2 TF to meet nutrient needs as best possible Follow-Up By: 03/16/21 Additional Comments F/U: stable TF, vent status, renal function, Na lab/water flushes
[2021-03-12] MEDS: SODIUM HYPOCHLORITE, DAKIN'S 1/2 STRENGTH (0.25%) 473 ML TOPICAL SOLN TP SCH (17:02)
[2021-03-12] MEDS ORDERED: EPINEPHrine 1 MG/10 ML SYRINGE ONE (17:06)
[2021-03-12] MEDS ORDERED: SODIUM BICARB 8.4% 50 MEQ/50 ML SYRINGE IV ONE (17:06)
[2021-03-12 17:45] VITALS: BP 164/70
--- NOTE | 2021-03-12 18:08 | Progress Note ---
Assessment and Plan Imp: 1. Covid-19 2. Viral pneumonia 3. ARDS 4. Acute respiratory failure, hypoxia 5. Morbid obesity 6. DEISI 7. Anasarca 8. SIRS -> sepsis w/ ? etiology/source currently 9. Hypernatremia 10. S/p CP arrest Rec: 1. Cont. current management; wean FiO2 then PEEP; will need trach once ventilator settings allow 2. TFs, GI PPx, SCDs, SubQ heparin 3. Off HD and would not tolerate now due to hypotension 4. Transfuse if H/H less than 7.0/21.0 5. Cont. current ventilator settings with permissive hypercapnea; 2 amps of bicarb given during code 6. Blood cultures negative; cont. Merrem and Vancomycin empirically; ID signed off 7. Prognosis is dismal; he will not survive this; sister was updated in detail by phone, all questions answered, and she understood that he will not survive this CCt 31 minutes Subjective Date of service: 03/12/21 Principal diagnosis: Acute respiratory failure Interval history: s/p PEA arrest with ROSC after EPI x 1 and CPR. On Epi, Levophed, and Vasopressin drips. On 100% FiO2 and PEEP of +18. Unable to give history. Objective Vital Signs - 12hr 03/12/21 03/12/21 03/12/21 06:15 06:30 06:46 Temperature Pulse Rate 121 H 122 H 122 H Respiratory 28 H 28 H 28 H Rate Respiratory Rate [Chest] Blood Pressure 140/45 140/45 139/51 O2 Sat by Pulse 93 93 93 Oximetry 03/12/21 03/12/21 03/12/21 07:00 07:16 07:30 Temperature Pulse Rate 121 H 122 H 122 H Respiratory 28 H 28 H 26 H Rate Respiratory Rate [Chest] Blood Pressure 131/44 136/34 134/50 O2 Sat by Pulse 93 94 93 Oximetry 03/12/21 03/12/21 03/12/21 07:36 07:46 08:00 Temperature 99.1 F Pulse Rate 126 H 121 H Respiratory 19 28 H Rate Respiratory Rate [Chest] Blood Pressure 134/50 138/57 O2 Sat by Pulse 95 95 Oximetry 03/12/21 03/12/21 03/12/21 08:16 08:30 08:46 Temperature Pulse Rate 121 H 121 H 121 H Respiratory 30 H 28 H 29 H Rate Respiratory Rate [Chest] Blood Pressure 146/43 143/51 162/22 O2 Sat by Pulse 94 94 94 Oximetry 03/12/21 03/12/21 03/12/21 09:00 09:16 09:30 Temperature Pulse Rate 122 H 122 H 121 H Respiratory 28 H 28 H 28 H Rate Respiratory Rate [Chest] Blood Pressure 155/30 139/45 139/55 O2 Sat by Pulse 93 93 94 Oximetry 03/12/21 03/12/21 03/12/21 09:37 09:45 10:00 Temperature Pulse Rate 122 H 121 H 121 H Respiratory 28 H 28 H Rate Respiratory 29 H Rate [Chest] Blood Pressure 139/55 144/61 148/60 O2 Sat by Pulse 95 95 95 Oximetry 03/12/21 03/12/21 03/12/21 10:15 10:30 10:46 Temperature Pulse Rate 122 H 122 H 122 H Respiratory 28 H 29 H 28 H Rate Respiratory Rate [Chest] Blood Pressure 154/43 154/43 137/65 O2 Sat by Pulse 94 94 94 Oximetry 03/12/21 03/12/21 03/12/21 11:00 11:16 11:30 Temperature Pulse Rate 118 H 121 H 121 H Respiratory 29 H 28 H 28 H Rate Respiratory Rate [Chest] Blood Pressure 136/60 154/45 154/45 O2 Sat by Pulse 94 94 95 Oximetry 03/12/21 03/12/21 03/12/21 11:46 12:00 12:16 Temperature Pulse Rate 122 H 122 H 122 H Respiratory 28 H 28 H 29 H Rate Respiratory Rate [Chest] Blood Pressure 148/20 148/20 150/26 O2 Sat by Pulse 95 95 95 Oximetry 03/12/21 03/12/21 03/12/21 12:26 12:30 12:46 Temperature 97.4 F L Pulse Rate 124 H 122 H Respiratory 28 H 28 H Rate Respiratory Rate [Chest] Blood Pressure 167/56 150/63 O2 Sat by Pulse 95 95 Oximetry 03/12/21 03/12/21 03/12/21 13:00 13:15 13:30 Temperature Pulse Rate 122 H 121 H 118 H Respiratory 30 H 29 H 32 H Rate Respiratory Rate [Chest] Blood Pressure 159/54 154/59 154/59 O2 Sat by Pulse 95 94 94 Oximetry 05/13/21 05/13/21 05/13/21 13:46 14:00 14:16 Temperature Pulse Rate 116 H 114 H 112 H Respiratory 30 H 32 H 33 H Rate Respiratory Rate [Chest] Blood Pressure 135/60 133/61 102/44 O2 Sat by Pulse 94 92 92 Oximetry 03/12/21 03/12/21 03/12/21 14:30 14:45 15:00 Temperature Pulse Rate 112 H 111 H 111 H Respiratory 33 H 33 H 33 H Rate Respiratory Rate [Chest] Blood Pressure 102/44 109/52 109/52 O2 Sat by Pulse 92 93 93 Oximetry 03/12/21 03/12/21 03/12/21 15:16 15:30 15:45 Temperature Pulse Rate 110 H 109 H 109 H Respiratory 33 H 33 H 35 H Rate Respiratory Rate [Chest] Blood Pressure 119/94 115/55 120/60 O2 Sat by Pulse 93 93 93 Oximetry 03/12/21 03/12/21 03/12/21 15:53 16:00 16:16 Temperature 99 F Pulse Rate 115 H 110 H 112 H Respiratory 34 H 34 H Rate Respiratory Rate [Chest] Blood Pressure 120/60 113/78 129/56 O2 Sat by Pulse 94 94 95 Oximetry 03/12/21 03/12/21 03/12/21 16:30 16:45 17:00 Temperature Pulse Rate 55 L 83 62 Respiratory 29 H 29 H 28 H Rate Respiratory Rate [Chest] Blood Pressure 129/56 82/46 66/23 O2 Sat by Pulse 67 L 65 L 63 L Oximetry 03/12/21 03/12/21 17:16 17:30 Temperature Pulse Rate 131 H 120 H Respiratory 18 28 H Rate Respiratory Rate [Chest] Blood Pressure 214/95 164/70 O2 Sat by Pulse 94 96 Oximetry Constitutional: other (sedated, on vent) Eyes: non-icteric ENT: other (orally intubated, critically ill) Neck: supple Effort: mildly labored (tachypneic) Ascultation: Bilateral: other (coarse BS bilaterally) Cardiovascular: regular rate and rhythm (no mrg) Gastrointestinal: normoactive bowel sounds Integumentary: normal Extremities: no cyanosis, pink and warm, anasarca Neurologic: unable to assess Psychiatric: other (unable to assess) CBC and BMP: 03/12/21 04:40 03/12/21 04:40 ABG, PT/INR, D-dimer: ABG ABG pH 7.170 (7.320-7.450) L 03/12/21 03:07 POC ABG pCO2 67.8 mmHg (32.0-48.0) H 03/12/21 03:07 ABG pCO2 72.4 mm Hg 03/06/21 17:45 POC ABG pO2 91.6 mmHg (83-108) 03/12/21 03:07 ABG pO2 78.1 mm Hg (80.0-90.0) L 03/06/21 17:45 POC ABG HCO3 24.2 03/12/21 03:07 ABG O2 Saturation 97.2 (0-100) 03/12/21 03:07 PT/INR, D-dimer PT 14.6 Sec. (12.2-14.9) 03/03/21 Unknown INR 1.15 (0.87-1.13) H 03/03/21 Unknown D-Dimer 6536.84 ng/mlDDU (0-234) H 02/25/21 09:03 Abnormal lab findings: Abnormal Labs 01/22/21 01/22/21 01/22/21 22:39 22:57 22:57 WBC RBC Hgb Hct MCV MCH MCHC RDW Plt Count Lymph % (Auto) 6.6 L Lymph # (Auto) 0.5 L Seg Neutrophils % 87.6 H Seg Neuts % (Manual) Lymphocytes % (Manual) Monocytes % (Manual) Nucleated RBC % Seg Neutrophils # Seg Neutrophils # Man Lymphocytes # (Manual) Monocytes # (Manual) Eosinophils # (Manual) INR D-Dimer ABG pH POC ABG pCO2 POC ABG pO2 ABG pO2 ABG HCO3 ABG O2 Saturation ABG Base Excess ABG Hemoglobin ABG Oxyhemoglobin ABG Sodium ABG Potassium ABG Chloride ABG Glucose Oxyhemoglobin Carboxyhemoglobin Sodium 129 L Potassium 3.4 L Chloride 90.4 L Carbon Dioxide BUN 34 H Creatinine 1.5 H Glucose 146 H POC Glucose Hemoglobin A1c Lactic Acid Calcium 7.8 L Phosphorus Magnesium Ferritin Total Bilirubin AST 75 H ALT 57 H Lactate Dehydrogenase C-Reactive Protein Albumin 2.9 L Triglycerides Arterial Blood Glucose Arterial Blood Ionized Calcium Urine Creatinine 301.2 H Coronavirus (PCR) Crossmatch 01/22/21 01/22/21 01/22/21 22:57 22:57 22:57 WBC RBC Hgb Hct MCV MCH MCHC RDW Plt Count Lymph % (Auto) Lymph # (Auto) Seg Neutrophils % Seg Neuts % (Manual) Lymphocytes % (Manual) Monocytes % (Manual) Nucleated RBC % Seg Neutrophils # Seg Neutrophils # Man Lymphocytes # (Manual) Monocytes # (Manual) Eosinophils # (Manual) INR D-Dimer 1173.89 H ABG pH POC ABG pCO2 POC ABG pO2 ABG pO2 ABG HCO3 ABG O2 Saturation ABG Base Excess ABG Hemoglobin ABG Oxyhemoglobin ABG Sodium ABG Potassium ABG Chloride ABG Glucose Oxyhemoglobin Carboxyhemoglobin Sodium Potassium Chloride Carbon Dioxide BUN Creatinine Glucose 149 H POC Glucose Hemoglobin A1c Lactic Acid 2.10 H* Calcium Phosphorus Magnesium Ferritin Total Bilirubin AST ALT Lactate Dehydrogenase 685 H C-Reactive Protein 30.40 H Albumin Triglycerides Arterial Blood Glucose Arterial Blood Ionized Calcium Urine Creatinine Coronavirus (PCR) Crossmatch 01/22/21 01/23/21 01/23/21 22:57 08:41 10:01 WBC RBC Hgb Hct MCV MCH MCHC RDW Plt Count Lymph % (Auto) Lymph # (Auto) Seg Neutrophils % Seg Neuts % (Manual) Lymphocytes % (Manual) Monocytes % (Manual) Nucleated RBC % Seg Neutrophils # Seg Neutrophils # Man Lymphocytes # (Manual) Monocytes # (Manual) Eosinophils # (Manual) INR D-Dimer ABG pH POC ABG pCO2 POC ABG pO2 ABG pO2 ABG HCO3 ABG O2 Saturation ABG Base Excess ABG Hemoglobin ABG Oxyhemoglobin ABG Sodium ABG Potassium ABG Chloride ABG Glucose Oxyhemoglobin Carboxyhemoglobin Sodium 131 L Potassium Chloride 88.7 L Carbon Dioxide 18 L BUN 36 H Creatinine 1.6 H Glucose 147 H POC Glucose Hemoglobin A1c Lactic Acid Calcium 7.5 L Phosphorus Magnesium Ferritin 1207.0 H Total Bilirubin AST ALT Lactate Dehydrogenase C-Reactive Protein Albumin Triglycerides Arterial Blood Glucose Arterial Blood Ionized Calcium Urine Creatinine Coronavirus (PCR) Positive A Crossmatch 01/23/21 01/23/21 01/24/21 20:49 Unknown 00:10 WBC RBC Hgb Hct MCV MCH MCHC RDW Plt Count Lymph % (Auto) Lymph # (Auto) Seg Neutrophils % Seg Neuts % (Manual) Lymphocytes % (Manual) Monocytes % (Manual) Nucleated RBC % Seg Neutrophils # Seg Neutrophils # Man Lymphocytes # (Manual) Monocytes # (Manual) Eosinophils # (Manual) INR D-Dimer ABG pH POC ABG pCO2 POC ABG pO2 ABG pO2 165.4 H ABG HCO3 ABG O2 Saturation ABG Base Excess -2.5 L ABG Hemoglobin ABG Oxyhemoglobin ABG Sodium ABG Potassium ABG Chloride ABG Glucose Oxyhemoglobin Carboxyhemoglobin Sodium 130 L Potassium Chloride 91.0 L Carbon Dioxide 20 L BUN 52 H Creatinine 3.8 H D Glucose 150 H POC Glucose 125 H Hemoglobin A1c Lactic Acid Calcium 8.0 L Phosphorus Magnesium Ferritin Total Bilirubin AST 42 H ALT Lactate Dehydrogenase C-Reactive Protein Albumin 2.4 L Triglycerides Arterial Blood Glucose Arterial Blood Ionized Calcium Urine Creatinine Coronavirus (PCR) Crossmatch 01/24/21 01/24/21 01/24/21 05:05 05:05 05:05 WBC 14.0 H RBC Hgb Hct MCV 95 H MCH 33 H MCHC RDW Plt Count Lymph % (Auto) Lymph # (Auto) Seg Neutrophils % Seg Neuts % (Manual) 91.0 H Lymphocytes % (Manual) 4.0 L Monocytes % (Manual) Nucleated RBC % Seg Neutrophils # Seg Neutrophils # Man 12.7 H Lymphocytes # (Manual) 0.6 L Monocytes # (Manual) Eosinophils # (Manual) INR D-Dimer 6159.48 H ABG pH POC ABG pCO2 POC ABG pO2 ABG pO2 ABG HCO3 ABG O2 Saturation ABG Base Excess ABG Hemoglobin ABG Oxyhemoglobin ABG Sodium ABG Potassium ABG Chloride ABG Glucose Oxyhemoglobin Carboxyhemoglobin Sodium Potassium Chloride Carbon Dioxide BUN Creatinine Glucose POC Glucose Hemoglobin A1c Lactic Acid Calcium Phosphorus Magnesium Ferritin 1178.0 H Total Bilirubin AST ALT Lactate Dehydrogenase C-Reactive Protein Albumin Triglycerides Arterial Blood Glucose Arterial Blood Ionized Calcium Urine Creatinine Coronavirus (PCR) Crossmatch 01/24/21 01/24/21 01/24/21 05:05 05:05 05:05 WBC RBC Hgb Hct MCV MCH MCHC RDW Plt Count Lymph % (Auto) Lymph # (Auto) Seg Neutrophils % Seg Neuts % (Manual) Lymphocytes % (Manual) Monocytes % (Manual) Nucleated RBC % Seg Neutrophils # Seg Neutrophils # Man Lymphocytes # (Manual) Monocytes # (Manual) Eosinophils # (Manual) INR D-Dimer ABG pH POC ABG pCO2 POC ABG pO2 ABG pO2 ABG HCO3 ABG O2 Saturation ABG Base Excess ABG Hemoglobin ABG Oxyhemoglobin ABG Sodium ABG Potassium ABG Chloride ABG Glucose Oxyhemoglobin Carboxyhemoglobin Sodium 132 L Potassium Chloride 93.1 L Carbon Dioxide 21 L BUN 57 H Creatinine 3.7 H Glucose 133 H POC Glucose Hemoglobin A1c Lactic Acid 2.20 H* Calcium 7.7 L Phosphorus Magnesium Ferritin Total Bilirubin AST ALT Lactate Dehydrogenase 658 H C-Reactive Protein 33.20 H Albumin 2.4 L Triglycerides Arterial Blood Glucose Arterial Blood Ionized Calcium Urine Creatinine Coronavirus (PCR) Crossmatch 01/24/21 01/24/21 01/24/21 05:34 06:00 17:35 WBC RBC Hgb Hct MCV MCH MCHC RDW Plt Count Lymph % (Auto) Lymph # (Auto) Seg Neutrophils % Seg Neuts % (Manual) Lymphocytes % (Manual) Monocytes % (Manual) Nucleated RBC % Seg Neutrophils # Seg Neutrophils # Man Lymphocytes # (Manual) Monocytes # (Manual) Eosinophils # (Manual) INR D-Dimer ABG pH POC ABG pCO2 POC ABG pO2 ABG pO2 ABG HCO3 ABG O2 Saturation ABG Base Excess ABG Hemoglobin ABG Oxyhemoglobin ABG Sodium ABG Potassium ABG Chloride ABG Glucose Oxyhemoglobin Carboxyhemoglobin Sodium Potassium Chloride Carbon Dioxide BUN Creatinine Glucose POC Glucose 136 H 137 H Hemoglobin A1c Lactic Acid Calcium Phosphorus Magnesium 2.80 H Ferritin Total Bilirubin AST ALT Lactate Dehydrogenase C-Reactive Protein Albumin Triglycerides Arterial Blood Glucose Arterial Blood Ionized Calcium Urine Creatinine Coronavirus (PCR) Crossmatch 01/25/21 01/25/21 01/25/21 04:15 05:40 05:40 WBC RBC Hgb Hct MCV 95 H MCH 33 H MCHC 35 H RDW Plt Count Lymph % (Auto) Lymph # (Auto) Seg Neutrophils % Seg Neuts % (Manual) 95.0 H Lymphocytes % (Manual) 3.0 L Monocytes % (Manual) Nucleated RBC % Seg Neutrophils # Seg Neutrophils # Man 7.8 H Lymphocytes # (Manual) 0.2 L Monocytes # (Manual) Eosinophils # (Manual) INR D-Dimer ABG pH POC ABG pCO2 POC ABG pO2 63.2 L ABG pO2 ABG HCO3 ABG O2 Saturation ABG Base Excess ABG Hemoglobin ABG Oxyhemoglobin 89.6 L ABG Sodium ABG Potassium ABG Chloride ABG Glucose 165 H Oxyhemoglobin Carboxyhemoglobin 0.3 L Sodium Potassium Chloride Carbon Dioxide BUN 67 H Creatinine 3.4 H Glucose 153 H POC Glucose Hemoglobin A1c Lactic Acid Calcium 7.5 L Phosphorus Magnesium Ferritin Total Bilirubin 1.40 H AST 62 H ALT Lactate Dehydrogenase C-Reactive Protein Albumin 2.6 L Triglycerides Arterial Blood Glucose 165 H Arterial Blood Ionized Calcium 4.3 L Urine Creatinine Coronavirus (PCR) Crossmatch 01/25/21 01/25/21 01/25/21 05:59 12:00 17:17 WBC RBC Hgb Hct MCV MCH MCHC RDW Plt Count Lymph % (Auto) Lymph # (Auto) Seg Neutrophils % Seg Neuts % (Manual) Lymphocytes % (Manual) Monocytes % (Manual) Nucleated RBC % Seg Neutrophils # Seg Neutrophils # Man Lymphocytes # (Manual) Monocytes # (Manual) Eosinophils # (Manual) INR D-Dimer ABG pH POC ABG pCO2 POC ABG pO2 ABG pO2 ABG HCO3 ABG O2 Saturation ABG Base Excess ABG Hemoglobin ABG Oxyhemoglobin ABG Sodium ABG Potassium ABG Chloride ABG Glucose Oxyhemoglobin Carboxyhemoglobin Sodium Potassium Chloride Carbon Dioxide BUN Creatinine Glucose POC Glucose 140 H 143 H 149 H Hemoglobin A1c Lactic Acid Calcium Phosphorus Magnesium Ferritin Total Bilirubin AST ALT Lactate Dehydrogenase C-Reactive Protein Albumin Triglycerides Arterial Blood Glucose Arterial Blood Ionized Calcium Urine Creatinine Coronavirus (PCR) Crossmatch 01/25/21 01/26/21 01/26/21 23:41 03:43 05:46 WBC RBC Hgb Hct MCV MCH MCHC RDW Plt Count Lymph % (Auto) Lymph # (Auto) Seg Neutrophils % Seg Neuts % (Manual) Lymphocytes % (Manual) Monocytes % (Manual) Nucleated RBC % Seg Neutrophils # Seg Neutrophils # Man Lymphocytes # (Manual) Monocytes # (Manual) Eosinophils # (Manual) INR D-Dimer ABG pH POC ABG pCO2 POC ABG pO2 70.0 L ABG pO2 ABG HCO3 ABG O2 Saturation ABG Base Excess ABG Hemoglobin ABG Oxyhemoglobin 91.9 L ABG Sodium ABG Potassium ABG Chloride 109.0 H ABG Glucose 165 H Oxyhemoglobin Carboxyhemoglobin Sodium Potassium Chloride Carbon Dioxide BUN Creatinine Glucose POC Glucose 132 H 161 H Hemoglobin A1c Lactic Acid Calcium Phosphorus Magnesium Ferritin Total Bilirubin AST ALT Lactate Dehydrogenase C-Reactive Protein Albumin Triglycerides Arterial Blood Glucose 165 H Arterial Blood Ionized Calcium 4.5 L Urine Creatinine Coronavirus (PCR) Crossmatch 01/26/21 01/26/21 01/26/21 05:47 05:47 05:47 WBC RBC Hgb Hct 35.3 L MCV 96 H MCH 33 H MCHC RDW Plt Count Lymph % (Auto) Lymph # (Auto) Seg Neutrophils % Seg Neuts % (Manual) 96.0 H Lymphocytes % (Manual) 2.0 L Monocytes % (Manual) Nucleated RBC % Seg Neutrophils # Seg Neutrophils # Man Lymphocytes # (Manual) 0.1 L Monocytes # (Manual) Eosinophils # (Manual) INR D-Dimer > 33499 H ABG pH POC ABG pCO2 POC ABG pO2 ABG pO2 ABG HCO3 ABG O2 Saturation ABG Base Excess ABG Hemoglobin ABG Oxyhemoglobin ABG Sodium ABG Potassium ABG Chloride ABG Glucose Oxyhemoglobin Carboxyhemoglobin Sodium Potassium Chloride Carbon Dioxide BUN 57 H Creatinine 2.2 H Glucose 185 H POC Glucose Hemoglobin A1c Lactic Acid Calcium 8.1 L Phosphorus Magnesium Ferritin Total Bilirubin AST ALT Lactate Dehydrogenase C-Reactive Protein Albumin Triglycerides Arterial Blood Glucose Arterial Blood Ionized Calcium Urine Creatinine Coronavirus (PCR) Crossmatch 01/26/21 01/26/21 01/26/21 05:47 05:47 05:47 WBC RBC Hgb Hct MCV MCH MCHC RDW Plt Count Lymph % (Auto) Lymph # (Auto) Seg Neutrophils % Seg Neuts % (Manual) Lymphocytes % (Manual) Monocytes % (Manual) Nucleated RBC % Seg Neutrophils # Seg Neutrophils # Man Lymphocytes # (Manual) Monocytes # (Manual) Eosinophils # (Manual) INR D-Dimer ABG pH POC ABG pCO2 POC ABG pO2 ABG pO2 ABG HCO3 ABG O2 Saturation ABG Base Excess ABG Hemoglobin ABG Oxyhemoglobin ABG Sodium ABG Potassium ABG Chloride ABG Glucose Oxyhemoglobin Carboxyhemoglobin Sodium Potassium Chloride 107.1 H Carbon Dioxide BUN 56 H Creatinine 2.2 H Glucose 188 H POC Glucose Hemoglobin A1c Lactic Acid Calcium 8.0 L Phosphorus Magnesium Ferritin 1178.0 H Total Bilirubin 1.50 H AST ALT Lactate Dehydrogenase 588 H C-Reactive Protein 40.10 H Albumin 2.2 L Triglycerides Arterial Blood Glucose Arterial Blood Ionized Calcium Urine Creatinine Coronavirus (PCR) Crossmatch 01/26/21 01/26/21 01/26/21 11:34 18:17 23:20 WBC RBC Hgb Hct MCV MCH MCHC RDW Plt Count Lymph % (Auto) Lymph # (Auto) Seg Neutrophils % Seg Neuts % (Manual) Lymphocytes % (Manual) Monocytes % (Manual) Nucleated RBC % Seg Neutrophils # Seg Neutrophils # Man Lymphocytes # (Manual) Monocytes # (Manual) Eosinophils # (Manual) INR D-Dimer ABG pH POC ABG pCO2 POC ABG pO2 ABG pO2 ABG HCO3 ABG O2 Saturation ABG Base Excess ABG Hemoglobin ABG Oxyhemoglobin ABG Sodium ABG Potassium ABG Chloride ABG Glucose Oxyhemoglobin Carboxyhemoglobin Sodium Potassium Chloride Carbon Dioxide BUN Creatinine Glucose POC Glucose 129 H 205 H 155 H Hemoglobin A1c Lactic Acid Calcium Phosphorus Magnesium Ferritin Total Bilirubin AST ALT Lactate Dehydrogenase C-Reactive Protein Albumin Triglycerides Arterial Blood Glucose Arterial Blood Ionized Calcium Urine Creatinine Coronavirus (PCR) Crossmatch 01/27/21 01/27/21 01/27/21 02:45 05:29 05:29 WBC RBC 3.58 L Hgb 11.7 L Hct 34.9 L MCV 97 H MCH 33 H MCHC RDW Plt Count Lymph % (Auto) Lymph # (Auto) Seg Neutrophils % Seg Neuts % (Manual) 88.0 H Lymphocytes % (Manual) 7.0 L Monocytes % (Manual) Nucleated RBC % Seg Neutrophils # Seg Neutrophils # Man Lymphocytes # (Manual) 0.5 L Monocytes # (Manual) Eosinophils # (Manual) INR D-Dimer ABG pH 7.319 L POC ABG pCO2 50.7 H POC ABG pO2 63.0 L ABG pO2 ABG HCO3 ABG O2 Saturation ABG Base Excess ABG Hemoglobin ABG Oxyhemoglobin ABG Sodium 145.2 H ABG Potassium 5.1 H ABG Chloride 114.0 H ABG Glucose 178 H Oxyhemoglobin Carboxyhemoglobin Sodium Potassium Chloride Carbon Dioxide BUN Creatinine Glucose POC Glucose Hemoglobin A1c Lactic Acid Calcium Phosphorus Magnesium 4.00 H Ferritin Total Bilirubin AST ALT Lactate Dehydrogenase C-Reactive Protein Albumin Triglycerides Arterial Blood Glucose 178 H Arterial Blood Ionized Calcium Urine Creatinine Coronavirus (PCR) Crossmatch 01/27/21 01/27/21 01/27/21 05:29 05:29 05:31 WBC RBC Hgb Hct MCV MCH MCHC RDW Plt Count Lymph % (Auto) Lymph # (Auto) Seg Neutrophils % Seg Neuts % (Manual) Lymphocytes % (Manual) Monocytes % (Manual) Nucleated RBC % Seg Neutrophils # Seg Neutrophils # Man Lymphocytes # (Manual) Monocytes # (Manual) Eosinophils # (Manual) INR D-Dimer ABG pH POC ABG pCO2 POC ABG pO2 ABG pO2 ABG HCO3 ABG O2 Saturation ABG Base Excess ABG Hemoglobin ABG Oxyhemoglobin ABG Sodium ABG Potassium ABG Chloride ABG Glucose Oxyhemoglobin Carboxyhemoglobin Sodium Potassium 5.2 H Chloride 109.6 H Carbon Dioxide BUN 67 H Creatinine 2.8 H Glucose 195 H POC Glucose 176 H Hemoglobin A1c Lactic Acid Calcium 7.9 L Phosphorus Magnesium Ferritin Total Bilirubin AST ALT Lactate Dehydrogenase C-Reactive Protein Albumin Triglycerides 160 H Arterial Blood Glucose Arterial Blood Ionized Calcium Urine Creatinine Coronavirus (PCR) Crossmatch 01/27/21 01/27/21 01/27/21 11:27 18:08 23:30 WBC RBC Hgb Hct MCV MCH MCHC RDW Plt Count Lymph % (Auto) Lymph # (Auto) Seg Neutrophils % Seg Neuts % (Manual) Lymphocytes % (Manual) Monocytes % (Manual) Nucleated RBC % Seg Neutrophils # Seg Neutrophils # Man Lymphocytes # (Manual) Monocytes # (Manual) Eosinophils # (Manual) INR D-Dimer ABG pH POC ABG pCO2 POC ABG pO2 ABG pO2 ABG HCO3 ABG O2 Saturation ABG Base Excess ABG Hemoglobin ABG Oxyhemoglobin ABG Sodium ABG Potassium ABG Chloride ABG Glucose Oxyhemoglobin Carboxyhemoglobin Sodium Potassium Chloride Carbon Dioxide BUN Creatinine Glucose POC Glucose 189 H 212 H 175 H Hemoglobin A1c Lactic Acid Calcium Phosphorus Magnesium Ferritin Total Bilirubin AST ALT Lactate Dehydrogenase C-Reactive Protein Albumin Triglycerides Arterial Blood Glucose Arterial Blood Ionized Calcium Urine Creatinine Coronavirus (PCR) Crossmatch 01/28/21 01/28/21 01/28/21 03:58 04:00 04:00 WBC RBC Hgb Hct MCV MCH MCHC RDW Plt Count Lymph % (Auto) Lymph # (Auto) Seg Neutrophils % Seg Neuts % (Manual) Lymphocytes % (Manual) Monocytes % (Manual) Nucleated RBC % Seg Neutrophils # Seg Neutrophils # Man Lymphocytes # (Manual) Monocytes # (Manual) Eosinophils # (Manual) INR D-Dimer > 94741 H ABG pH POC ABG pCO2 POC ABG pO2 52.9 L ABG pO2 ABG HCO3 ABG O2 Saturation ABG Base Excess ABG Hemoglobin ABG Oxyhemoglobin 84.1 L ABG Sodium 148.9 H ABG Potassium ABG Chloride 117.0 H ABG Glucose 194 H Oxyhemoglobin Carboxyhemoglobin Sodium Potassium Chloride Carbon Dioxide BUN Creatinine Glucose POC Glucose Hemoglobin A1c Lactic Acid Calcium Phosphorus Magnesium Ferritin Total Bilirubin AST ALT Lactate Dehydrogenase 679 H C-Reactive Protein 17.10 H Albumin Triglycerides Arterial Blood Glucose 194 H Arterial Blood Ionized Calcium Urine Creatinine Coronavirus (PCR) Crossmatch 01/28/21 01/28/21 01/28/21 04:00 05:00 06:00 WBC RBC 3.59 L Hgb 11.6 L Hct 34.8 L MCV 97 H MCH MCHC RDW Plt Count Lymph % (Auto) Lymph # (Auto) Seg Neutrophils % Seg Neuts % (Manual) 96.0 H Lymphocytes % (Manual) 3.0 L Monocytes % (Manual) Nucleated RBC % Seg Neutrophils # Seg Neutrophils # Man Lymphocytes # (Manual) 0.2 L Monocytes # (Manual) Eosinophils # (Manual) INR D-Dimer ABG pH POC ABG pCO2 POC ABG pO2 ABG pO2 ABG HCO3 ABG O2 Saturation ABG Base Excess ABG Hemoglobin ABG Oxyhemoglobin ABG Sodium ABG Potassium ABG Chloride ABG Glucose Oxyhemoglobin Carboxyhemoglobin Sodium Potassium Chloride Carbon Dioxide BUN Creatinine Glucose POC Glucose 159 H Hemoglobin A1c Lactic Acid Calcium Phosphorus Magnesium Ferritin 798.0 H Total Bilirubin AST ALT Lactate Dehydrogenase C-Reactive Protein Albumin Triglycerides Arterial Blood Glucose Arterial Blood Ionized Calcium Urine Creatinine Coronavirus (PCR) Crossmatch 01/28/21 01/28/21 01/28/21 06:00 06:00 08:12 WBC RBC Hgb Hct MCV MCH MCHC RDW Plt Count Lymph % (Auto) Lymph # (Auto) Seg Neutrophils % Seg Neuts % (Manual) Lymphocytes % (Manual) Monocytes % (Manual) Nucleated RBC % Seg Neutrophils # Seg Neutrophils # Man Lymphocytes # (Manual) Monocytes # (Manual) Eosinophils # (Manual) INR D-Dimer ABG pH POC ABG pCO2 POC ABG pO2 ABG pO2 ABG HCO3 ABG O2 Saturation ABG Base Excess ABG Hemoglobin ABG Oxyhemoglobin ABG Sodium ABG Potassium ABG Chloride ABG Glucose Oxyhemoglobin Carboxyhemoglobin Sodium Potassium Chloride 111.9 H Carbon Dioxide BUN 59 H Creatinine 2.2 H Glucose 189 H POC Glucose 181 H Hemoglobin A1c Lactic Acid Calcium 8.1 L Phosphorus Magnesium 3.20 H Ferritin Total Bilirubin AST ALT Lactate Dehydrogenase C-Reactive Protein Albumin Triglycerides Arterial Blood Glucose Arterial Blood Ionized Calcium Urine Creatinine Coronavirus (PCR) Crossmatch 01/28/21 01/28/21 01/28/21 12:03 16:43 23:51 WBC RBC Hgb Hct MCV MCH MCHC RDW Plt Count Lymph % (Auto) Lymph # (Auto) Seg Neutrophils % Seg Neuts % (Manual) Lymphocytes % (Manual) Monocytes % (Manual) Nucleated RBC % Seg Neutrophils # Seg Neutrophils # Man Lymphocytes # (Manual) Monocytes # (Manual) Eosinophils # (Manual) INR D-Dimer ABG pH POC ABG pCO2 POC ABG pO2 ABG pO2 ABG HCO3 ABG O2 Saturation ABG Base Excess ABG Hemoglobin ABG Oxyhemoglobin ABG Sodium ABG Potassium ABG Chloride ABG Glucose Oxyhemoglobin Carboxyhemoglobin Sodium Potassium Chloride Carbon Dioxide BUN Creatinine Glucose POC Glucose 164 H 198 H 196 H Hemoglobin A1c Lactic Acid Calcium Phosphorus Magnesium Ferritin Total Bilirubin AST ALT Lactate Dehydrogenase C-Reactive Protein Albumin Triglycerides Arterial Blood Glucose Arterial Blood Ionized Calcium Urine Creatinine Coronavirus (PCR) Crossmatch 01/29/21 01/29/21 01/29/21 05:00 05:23 06:00 WBC RBC Hgb Hct MCV MCH MCHC RDW Plt Count Lymph % (Auto) Lymph # (Auto) Seg Neutrophils % Seg Neuts % (Manual) Lymphocytes % (Manual) Monocytes % (Manual) Nucleated RBC % Seg Neutrophils # Seg Neutrophils # Man Lymphocytes # (Manual) Monocytes # (Manual) Eosinophils # (Manual) INR D-Dimer ABG pH 7.119 L POC ABG pCO2 87.1 H POC ABG pO2 ABG pO2 ABG HCO3 ABG O2 Saturation ABG Base Excess ABG Hemoglobin ABG Oxyhemoglobin ABG Sodium 152.5 H ABG Potassium 5.7 H ABG Chloride 120.0 H ABG Glucose 217 H Oxyhemoglobin Carboxyhemoglobin Sodium 151 H Potassium 5.9 H D Chloride 117.8 H Carbon Dioxide BUN 54 H Creatinine 2.2 H Glucose 208 H POC Glucose 180 H Hemoglobin A1c Lactic Acid Calcium 7.9 L Phosphorus Magnesium Ferritin Total Bilirubin AST ALT Lactate Dehydrogenase C-Reactive Protein Albumin Triglycerides Arterial Blood Glucose 217 H Arterial Blood Ionized Calcium Urine Creatinine Coronavirus (PCR) Crossmatch 01/29/21 01/29/21 01/29/21 12:29 17:28 18:05 WBC RBC Hgb Hct MCV MCH MCHC RDW Plt Count Lymph % (Auto) Lymph # (Auto) Seg Neutrophils % Seg Neuts % (Manual) Lymphocytes % (Manual) Monocytes % (Manual) Nucleated RBC % Seg Neutrophils # Seg Neutrophils # Man Lymphocytes # (Manual) Monocytes # (Manual) Eosinophils # (Manual) INR D-Dimer ABG pH POC ABG pCO2 POC ABG pO2 ABG pO2 ABG HCO3 ABG O2 Saturation ABG Base Excess ABG Hemoglobin ABG Oxyhemoglobin ABG Sodium ABG Potassium ABG Chloride ABG Glucose Oxyhemoglobin Carboxyhemoglobin Sodium 151 H Potassium 5.5 H Chloride 118.2 H Carbon Dioxide BUN 52 H Creatinine 2.2 H Glucose 224 H POC Glucose 181 H 203 H Hemoglobin A1c Lactic Acid Calcium 8.0 L Phosphorus Magnesium Ferritin Total Bilirubin AST ALT Lactate Dehydrogenase C-Reactive Protein Albumin Triglycerides Arterial Blood Glucose Arterial Blood Ionized Calcium Urine Creatinine Coronavirus (PCR) Crossmatch 01/29/21 01/29/21 01/29/21 18:13 23:34 Unknown WBC RBC Hgb Hct MCV 101 H MCH MCHC RDW 15.7 H Plt Count Lymph % (Auto) Lymph # (Auto) Seg Neutrophils % Seg Neuts % (Manual) 95.0 H Lymphocytes % (Manual) 3.0 L Monocytes % (Manual) Nucleated RBC % Seg Neutrophils # Seg Neutrophils # Man 8.0 H Lymphocytes # (Manual) 0.3 L Monocytes # (Manual) Eosinophils # (Manual) INR D-Dimer ABG pH 7.223 L POC ABG pCO2 64.8 H POC ABG pO2 63.6 L ABG pO2 ABG HCO3 ABG O2 Saturation ABG Base Excess ABG Hemoglobin ABG Oxyhemoglobin 89.4 L ABG Sodium 152.9 H ABG Potassium 5.3 H ABG Chloride 121.0 H ABG Glucose 227 H Oxyhemoglobin Carboxyhemoglobin Sodium Potassium Chloride Carbon Dioxide BUN Creatinine Glucose POC Glucose 198 H Hemoglobin A1c Lactic Acid Calcium Phosphorus Magnesium Ferritin Total Bilirubin AST ALT Lactate Dehydrogenase C-Reactive Protein Albumin Triglycerides Arterial Blood Glucose 227 H Arterial Blood Ionized Calcium Urine Creatinine Coronavirus (PCR) Crossmatch 01/30/21 01/30/21 01/30/21 04:00 04:00 04:00 WBC RBC Hgb Hct MCV MCH MCHC RDW Plt Count Lymph % (Auto) Lymph # (Auto) Seg Neutrophils % Seg Neuts % (Manual) Lymphocytes % (Manual) Monocytes % (Manual) Nucleated RBC % Seg Neutrophils # Seg Neutrophils # Man Lymphocytes # (Manual) Monocytes # (Manual) Eosinophils # (Manual) INR D-Dimer > 96811 H ABG pH POC ABG pCO2 POC ABG pO2 ABG pO2 ABG HCO3 ABG O2 Saturation ABG Base Excess ABG Hemoglobin ABG Oxyhemoglobin ABG Sodium ABG Potassium ABG Chloride ABG Glucose Oxyhemoglobin Carboxyhemoglobin Sodium Potassium Chloride Carbon Dioxide BUN Creatinine Glucose 234 H POC Glucose Hemoglobin A1c Lactic Acid Calcium Phosphorus Magnesium Ferritin 763.9 H Total Bilirubin AST ALT Lactate Dehydrogenase 424 H C-Reactive Protein 23.90 H Albumin Triglycerides Arterial Blood Glucose Arterial Blood Ionized Calcium Urine Creatinine Coronavirus (PCR) Crossmatch 01/30/21 01/30/21 01/30/21 04:24 05:00 05:16 WBC RBC 3.57 L Hgb 11.3 L Hct 35.4 L MCV 99 H MCH MCHC RDW 15.6 H Plt Count Lymph % (Auto) Lymph # (Auto) Seg Neutrophils % Seg Neuts % (Manual) 97.0 H Lymphocytes % (Manual) 1.0 L Monocytes % (Manual) Nucleated RBC % Seg Neutrophils # Seg Neutrophils # Man 8.6 H Lymphocytes # (Manual) 0.1 L Monocytes # (Manual) Eosinophils # (Manual) INR D-Dimer ABG pH 7.235 L POC ABG pCO2 69.7 H POC ABG pO2 61.0 L ABG pO2 ABG HCO3 ABG O2 Saturation ABG Base Excess ABG Hemoglobin ABG Oxyhemoglobin 89 L ABG Sodium 154.2 H ABG Potassium 5.4 H ABG Chloride 121.0 H ABG Glucose 247 H Oxyhemoglobin Carboxyhemoglobin Sodium Potassium Chloride Carbon Dioxide BUN Creatinine Glucose POC Glucose 238 H Hemoglobin A1c Lactic Acid Calcium Phosphorus Magnesium Ferritin Total Bilirubin AST ALT Lactate Dehydrogenase C-Reactive Protein Albumin Triglycerides Arterial Blood Glucose 247 H Arterial Blood Ionized Calcium Urine Creatinine Coronavirus (PCR) Crossmatch 01/30/21 01/30/21 01/30/21 06:00 11:28 12:00 WBC RBC Hgb Hct MCV MCH MCHC RDW Plt Count Lymph % (Auto) Lymph # (Auto) Seg Neutrophils % Seg Neuts % (Manual) Lymphocytes % (Manual) Monocytes % (Manual) Nucleated RBC % Seg Neutrophils # Seg Neutrophils # Man Lymphocytes # (Manual) Monocytes # (Manual) Eosinophils # (Manual) INR D-Dimer ABG pH POC ABG pCO2 POC ABG pO2 ABG pO2 ABG HCO3 ABG O2 Saturation ABG Base Excess ABG Hemoglobin ABG Oxyhemoglobin ABG Sodium ABG Potassium ABG Chloride ABG Glucose Oxyhemoglobin Carboxyhemoglobin Sodium 152 H Potassium 5.3 H Chloride 120.5 H Carbon Dioxide BUN 50 H Creatinine 2.3 H Glucose 239 H POC Glucose 153 H Hemoglobin A1c Lactic Acid Calcium 8.2 L Phosphorus Magnesium 2.60 H Ferritin Total Bilirubin AST ALT Lactate Dehydrogenase C-Reactive Protein Albumin Triglycerides 293 H Arterial Blood Glucose Arterial Blood Ionized Calcium Urine Creatinine 53.0 H Coronavirus (PCR) Crossmatch 01/30/21 01/30/21 01/31/21 18:49 23:06 04:00 WBC RBC Hgb Hct MCV MCH MCHC RDW Plt Count Lymph % (Auto) Lymph # (Auto) Seg Neutrophils % Seg Neuts % (Manual) Lymphocytes % (Manual) Monocytes % (Manual) Nucleated RBC % Seg Neutrophils # Seg Neutrophils # Man Lymphocytes # (Manual) Monocytes # (Manual) Eosinophils # (Manual) INR D-Dimer ABG pH POC ABG pCO2 POC ABG pO2 ABG pO2 ABG HCO3 ABG O2 Saturation ABG Base Excess ABG Hemoglobin ABG Oxyhemoglobin ABG Sodium ABG Potassium ABG Chloride ABG Glucose Oxyhemoglobin Carboxyhemoglobin Sodium 156 H Potassium 5.9 H Chloride 122.6 H Carbon Dioxide BUN 61 H Creatinine 3.2 H Glucose 205 H POC Glucose 220 H 192 H Hemoglobin A1c Lactic Acid Calcium 8.0 L Phosphorus Magnesium Ferritin Total Bilirubin AST ALT Lactate Dehydrogenase C-Reactive Protein Albumin Triglycerides Arterial Blood Glucose Arterial Blood Ionized Calcium Urine Creatinine Coronavirus (PCR) Crossmatch 01/31/21 01/31/21 01/31/21 04:40 05:17 11:33 WBC RBC Hgb Hct MCV MCH MCHC RDW Plt Count Lymph % (Auto) Lymph # (Auto) Seg Neutrophils % Seg Neuts % (Manual) Lymphocytes % (Manual) Monocytes % (Manual) Nucleated RBC % Seg Neutrophils # Seg Neutrophils # Man Lymphocytes # (Manual) Monocytes # (Manual) Eosinophils # (Manual) INR D-Dimer ABG pH 7.161 L* POC ABG pCO2 POC ABG pO2 ABG pO2 142.2 H ABG HCO3 28.3 H ABG O2 Saturation ABG Base Excess -3.2 L ABG Hemoglobin ABG Oxyhemoglobin ABG Sodium ABG Potassium ABG Chloride ABG Glucose Oxyhemoglobin Carboxyhemoglobin Sodium Potassium Chloride Carbon Dioxide BUN Creatinine Glucose POC Glucose 200 H 167 H Hemoglobin A1c Lactic Acid Calcium Phosphorus Magnesium Ferritin Total Bilirubin AST ALT Lactate Dehydrogenase C-Reactive Protein Albumin Triglycerides Arterial Blood Glucose Arterial Blood Ionized Calcium Urine Creatinine Coronavirus (PCR) Crossmatch 01/31/21 01/31/21 01/31/21 14:00 17:10 23:24 WBC RBC Hgb Hct MCV MCH MCHC RDW Plt Count Lymph % (Auto) Lymph # (Auto) Seg Neutrophils % Seg Neuts % (Manual) Lymphocytes % (Manual) Monocytes % (Manual) Nucleated RBC % Seg Neutrophils # Seg Neutrophils # Man Lymphocytes # (Manual) Monocytes # (Manual) Eosinophils # (Manual) INR D-Dimer ABG pH 7.205 L POC ABG pCO2 POC ABG pO2 ABG pO2 90.9 H ABG HCO3 26.5 H ABG O2 Saturation ABG Base Excess -2.7 L ABG Hemoglobin 12.3 L ABG Oxyhemoglobin ABG Sodium ABG Potassium ABG Chloride ABG Glucose Oxyhemoglobin 93.9 L Carboxyhemoglobin Sodium Potassium Chloride Carbon Dioxide BUN Creatinine Glucose POC Glucose 190 H 203 H Hemoglobin A1c Lactic Acid Calcium Phosphorus Magnesium Ferritin Total Bilirubin AST ALT Lactate Dehydrogenase C-Reactive Protein Albumin Triglycerides Arterial Blood Glucose Arterial Blood Ionized Calcium Urine Creatinine Coronavirus (PCR) Crossmatch 02/01/21 02/01/21 02/01/21 05:15 06:22 10:20 WBC RBC Hgb Hct MCV MCH MCHC RDW Plt Count Lymph % (Auto) Lymph # (Auto) Seg Neutrophils % Seg Neuts % (Manual) Lymphocytes % (Manual) Monocytes % (Manual) Nucleated RBC % Seg Neutrophils # Seg Neutrophils # Man Lymphocytes # (Manual) Monocytes # (Manual) Eosinophils # (Manual) INR D-Dimer ABG pH 6.920 L* 7.116 L* POC ABG pCO2 POC ABG pO2 ABG pO2 102.9 H 113.1 H ABG HCO3 28.2 H ABG O2 Saturation 92.9 L ABG Base Excess -6.9 L -5.8 L ABG Hemoglobin 11.6 L 9.5 L ABG Oxyhemoglobin ABG Sodium ABG Potassium ABG Chloride ABG Glucose Oxyhemoglobin 90.5 L 94.6 L Carboxyhemoglobin Sodium Potassium Chloride Carbon Dioxide BUN Creatinine Glucose POC Glucose 221 H Hemoglobin A1c Lactic Acid Calcium Phosphorus Magnesium Ferritin Total Bilirubin AST ALT Lactate Dehydrogenase C-Reactive Protein Albumin Triglycerides Arterial Blood Glucose Arterial Blood Ionized Calcium Urine Creatinine Coronavirus (PCR) Crossmatch 02/01/21 02/01/21 02/01/21 11:12 12:35 16:00 WBC RBC Hgb Hct MCV MCH MCHC RDW Plt Count Lymph % (Auto) Lymph # (Auto) Seg Neutrophils % Seg Neuts % (Manual) Lymphocytes % (Manual) Monocytes % (Manual) Nucleated RBC % Seg Neutrophils # Seg Neutrophils # Man Lymphocytes # (Manual) Monocytes # (Manual) Eosinophils # (Manual) INR D-Dimer ABG pH 7.155 L* POC ABG pCO2 POC ABG pO2 ABG pO2 94.6 H ABG HCO3 ABG O2 Saturation ABG Base Excess -6.5 L ABG Hemoglobin 13.1 L ABG Oxyhemoglobin ABG Sodium ABG Potassium ABG Chloride ABG Glucose Oxyhemoglobin 93.7 L Carboxyhemoglobin Sodium 155 H Potassium 5.1 H Chloride 120.5 H Carbon Dioxide BUN 90 H Creatinine 6.1 H D Glucose 238 H POC Glucose 207 H Hemoglobin A1c Lactic Acid Calcium 7.4 L Phosphorus Magnesium Ferritin Total Bilirubin AST ALT Lactate Dehydrogenase C-Reactive Protein Albumin Triglycerides Arterial Blood Glucose Arterial Blood Ionized Calcium Urine Creatinine Coronavirus (PCR) Crossmatch 02/01/21 02/01/21 02/02/21 17:10 23:47 04:04 WBC RBC 3.02 L Hgb 9.8 L Hct 30.7 L MCV 102 H MCH MCHC RDW 15.6 H Plt Count Lymph % (Auto) 4.2 L Lymph # (Auto) 0.3 L Seg Neutrophils % Seg Neuts % (Manual) Lymphocytes % (Manual) Monocytes % (Manual) Nucleated RBC % Seg Neutrophils # Seg Neutrophils # Man Lymphocytes # (Manual) Monocytes # (Manual) Eosinophils # (Manual) INR D-Dimer ABG pH POC ABG pCO2 POC ABG pO2 ABG pO2 ABG HCO3 ABG O2 Saturation ABG Base Excess ABG Hemoglobin ABG Oxyhemoglobin ABG Sodium ABG Potassium ABG Chloride ABG Glucose Oxyhemoglobin Carboxyhemoglobin Sodium Potassium Chloride Carbon Dioxide BUN Creatinine Glucose POC Glucose 238 H 235 H Hemoglobin A1c Lactic Acid Calcium Phosphorus Magnesium Ferritin Total Bilirubin AST ALT Lactate Dehydrogenase C-Reactive Protein Albumin Triglycerides Arterial Blood Glucose Arterial Blood Ionized Calcium Urine Creatinine Coronavirus (PCR) Crossmatch 02/02/21 02/02/21 02/02/21 05:18 05:35 11:28 WBC RBC Hgb Hct MCV MCH MCHC RDW Plt Count Lymph % (Auto) Lymph # (Auto) Seg Neutrophils % Seg Neuts % (Manual) Lymphocytes % (Manual) Monocytes % (Manual) Nucleated RBC % Seg Neutrophils # Seg Neutrophils # Man Lymphocytes # (Manual) Monocytes # (Manual) Eosinophils # (Manual) INR D-Dimer ABG pH 7.195 L* POC ABG pCO2 POC ABG pO2 ABG pO2 72.5 L ABG HCO3 ABG O2 Saturation 91.2 L ABG Base Excess -5.3 L ABG Hemoglobin 6.0 L ABG Oxyhemoglobin ABG Sodium ABG Potassium ABG Chloride ABG Glucose Oxyhemoglobin 89.1 L Carboxyhemoglobin Sodium Potassium Chloride 110.4 H Carbon Dioxide BUN 92 H Creatinine Glucose POC Glucose 239 H Hemoglobin A1c Lactic Acid Calcium Phosphorus Magnesium Ferritin Total Bilirubin AST ALT Lactate Dehydrogenase C-Reactive Protein Albumin Triglycerides Arterial Blood Glucose Arterial Blood Ionized Calcium Urine Creatinine Coronavirus (PCR) Crossmatch 02/02/21 02/02/21 02/02/21 11:53 16:00 18:04 WBC RBC Hgb Hct MCV MCH MCHC RDW Plt Count Lymph % (Auto) Lymph # (Auto) Seg Neutrophils % Seg Neuts % (Manual) Lymphocytes % (Manual) Monocytes % (Manual) Nucleated RBC % Seg Neutrophils # Seg Neutrophils # Man Lymphocytes # (Manual) Monocytes # (Manual) Eosinophils # (Manual) INR D-Dimer ABG pH POC ABG pCO2 POC ABG pO2 ABG pO2 ABG HCO3 ABG O2 Saturation ABG Base Excess ABG Hemoglobin ABG Oxyhemoglobin ABG Sodium ABG Potassium ABG Chloride ABG Glucose Oxyhemoglobin Carboxyhemoglobin Sodium Potassium Chloride Carbon Dioxide BUN Creatinine Glucose POC Glucose 248 H 199 H Hemoglobin A1c 6.3 H Lactic Acid Calcium Phosphorus Magnesium Ferritin Total Bilirubin AST ALT Lactate Dehydrogenase C-Reactive Protein Albumin Triglycerides Arterial Blood Glucose Arterial Blood Ionized Calcium Urine Creatinine Coronavirus (PCR) Crossmatch 02/02/21 02/03/21 02/03/21 23:31 03:12 04:10 WBC RBC 3.06 L Hgb 9.7 L Hct 30.4 L MCV 99 H MCH MCHC RDW 15.3 H Plt Count Lymph % (Auto) 6.1 L Lymph # (Auto) 0.5 L Seg Neutrophils % 86.1 H Seg Neuts % (Manual) Lymphocytes % (Manual) Monocytes % (Manual) Nucleated RBC % Seg Neutrophils # Seg Neutrophils # Man Lymphocytes # (Manual) Monocytes # (Manual) Eosinophils # (Manual) INR D-Dimer ABG pH 7.199 L POC ABG pCO2 48.3 H POC ABG pO2 68.3 L ABG pO2 ABG HCO3 ABG O2 Saturation ABG Base Excess ABG Hemoglobin 10.2 L ABG Oxyhemoglobin 89.2 L ABG Sodium 155.0 H ABG Potassium 4.6 H ABG Chloride 121.0 H ABG Glucose 166 H Oxyhemoglobin Carboxyhemoglobin 0.3 L Sodium Potassium Chloride Carbon Dioxide BUN Creatinine Glucose POC Glucose 200 H Hemoglobin A1c Lactic Acid Calcium Phosphorus Magnesium Ferritin Total Bilirubin AST ALT Lactate Dehydrogenase C-Reactive Protein Albumin Triglycerides Arterial Blood Glucose 166 H Arterial Blood Ionized Calcium 4.1 L Urine Creatinine Coronavirus (PCR) Crossmatch 02/03/21 02/03/21 02/03/21 04:10 05:34 11:51 WBC RBC Hgb Hct MCV MCH MCHC RDW Plt Count Lymph % (Auto) Lymph # (Auto) Seg Neutrophils % Seg Neuts % (Manual) Lymphocytes % (Manual) Monocytes % (Manual) Nucleated RBC % Seg Neutrophils # Seg Neutrophils # Man Lymphocytes # (Manual) Monocytes # (Manual) Eosinophils # (Manual) INR D-Dimer ABG pH POC ABG pCO2 POC ABG pO2 ABG pO2 ABG HCO3 ABG O2 Saturation ABG Base Excess ABG Hemoglobin ABG Oxyhemoglobin ABG Sodium ABG Potassium ABG Chloride ABG Glucose Oxyhemoglobin Carboxyhemoglobin Sodium 154 H D Potassium Chloride 116.7 H Carbon Dioxide 20 L BUN 130 H Creatinine 9.2 H D Glucose 160 H POC Glucose 130 H 154 H Hemoglobin A1c Lactic Acid Calcium 6.7 L Phosphorus 8.60 H Magnesium Ferritin Total Bilirubin AST ALT Lactate Dehydrogenase C-Reactive Protein Albumin Triglycerides Arterial Blood Glucose Arterial Blood Ionized Calcium Urine Creatinine Coronavirus (PCR) Crossmatch 02/03/21 02/03/21 02/04/21 16:49 23:22 03:48 WBC RBC Hgb Hct MCV MCH MCHC RDW Plt Count Lymph % (Auto) Lymph # (Auto) Seg Neutrophils % Seg Neuts % (Manual) Lymphocytes % (Manual) Monocytes % (Manual) Nucleated RBC % Seg Neutrophils # Seg Neutrophils # Man Lymphocytes # (Manual) Monocytes # (Manual) Eosinophils # (Manual) INR D-Dimer ABG pH 7.201 L POC ABG pCO2 54.5 H POC ABG pO2 74.0 L ABG pO2 ABG HCO3 ABG O2 Saturation ABG Base Excess ABG Hemoglobin 9.7 L ABG Oxyhemoglobin 91.1 L ABG Sodium 146.2 H ABG Potassium ABG Chloride 114.0 H ABG Glucose 155 H Oxyhemoglobin Carboxyhemoglobin Sodium Potassium Chloride Carbon Dioxide BUN Creatinine Glucose POC Glucose 164 H 152 H Hemoglobin A1c Lactic Acid Calcium Phosphorus Magnesium Ferritin Total Bilirubin AST ALT Lactate Dehydrogenase C-Reactive Protein Albumin Triglycerides Arterial Blood Glucose 155 H Arterial Blood Ionized Calcium 3.9 L Urine Creatinine Coronavirus (PCR) Crossmatch 02/04/21 02/04/21 02/04/21 04:45 04:45 04:45 WBC RBC 2.75 L Hgb 9.1 L Hct 26.9 L MCV 98 H MCH 33 H MCHC RDW Plt Count Lymph % (Auto) 6.8 L Lymph # (Auto) 0.5 L Seg Neutrophils % 87.2 H Seg Neuts % (Manual) Lymphocytes % (Manual) Monocytes % (Manual) Nucleated RBC % Seg Neutrophils # Seg Neutrophils # Man Lymphocytes # (Manual) Monocytes # (Manual) Eosinophils # (Manual) INR D-Dimer ABG pH POC ABG pCO2 POC ABG pO2 ABG pO2 ABG HCO3 ABG O2 Saturation ABG Base Excess ABG Hemoglobin ABG Oxyhemoglobin ABG Sodium ABG Potassium ABG Chloride ABG Glucose Oxyhemoglobin Carboxyhemoglobin Sodium 149 H Potassium Chloride 111.5 H Carbon Dioxide BUN 99 H Creatinine 8.5 H Glucose 139 H POC Glucose Hemoglobin A1c Lactic Acid Calcium 6.8 L Phosphorus 8.40 H Magnesium Ferritin Total Bilirubin AST ALT Lactate Dehydrogenase C-Reactive Protein Albumin Triglycerides Arterial Blood Glucose Arterial Blood Ionized Calcium Urine Creatinine Coronavirus (PCR) Crossmatch 02/04/21 02/04/21 02/04/21 06:05 11:44 18:00 WBC RBC Hgb Hct MCV MCH MCHC RDW Plt Count Lymph % (Auto) Lymph # (Auto) Seg Neutrophils % Seg Neuts % (Manual) Lymphocytes % (Manual) Monocytes % (Manual) Nucleated RBC % Seg Neutrophils # Seg Neutrophils # Man Lymphocytes # (Manual) Monocytes # (Manual) Eosinophils # (Manual) INR D-Dimer ABG pH POC ABG pCO2 POC ABG pO2 ABG pO2 ABG HCO3 ABG O2 Saturation ABG Base Excess ABG Hemoglobin ABG Oxyhemoglobin ABG Sodium ABG Potassium ABG Chloride ABG Glucose Oxyhemoglobin Carboxyhemoglobin Sodium Potassium Chloride Carbon Dioxide BUN Creatinine Glucose POC Glucose 138 H 129 H 163 H Hemoglobin A1c Lactic Acid Calcium Phosphorus Magnesium Ferritin Total Bilirubin AST ALT Lactate Dehydrogenase C-Reactive Protein Albumin Triglycerides Arterial Blood Glucose Arterial Blood Ionized Calcium Urine Creatinine Coronavirus (PCR) Crossmatch 02/04/21 02/05/21 02/05/21 23:48 01:50 01:50 WBC RBC 2.43 L Hgb 8.3 L Hct 23.6 L MCV 97 H MCH 34 H MCHC 35 H RDW Plt Count 137 L Lymph % (Auto) 8.4 L Lymph # (Auto) 0.6 L Seg Neutrophils % 86.1 H Seg Neuts % (Manual) Lymphocytes % (Manual) Monocytes % (Manual) Nucleated RBC % Seg Neutrophils # Seg Neutrophils # Man Lymphocytes # (Manual) Monocytes # (Manual) Eosinophils # (Manual) INR D-Dimer ABG pH POC ABG pCO2 POC ABG pO2 ABG pO2 ABG HCO3 ABG O2 Saturation ABG Base Excess ABG Hemoglobin ABG Oxyhemoglobin ABG Sodium ABG Potassium ABG Chloride ABG Glucose Oxyhemoglobin Carboxyhemoglobin Sodium Potassium Chloride Carbon Dioxide BUN Creatinine Glucose POC Glucose 157 H Hemoglobin A1c Lactic Acid Calcium Phosphorus 5.60 H D Magnesium Ferritin Total Bilirubin AST ALT Lactate Dehydrogenase C-Reactive Protein Albumin Triglycerides Arterial Blood Glucose Arterial Blood Ionized Calcium Urine Creatinine Coronavirus (PCR) Crossmatch 02/05/21 02/05/21 02/05/21 03:44 05:27 09:15 WBC RBC Hgb Hct MCV MCH MCHC RDW Plt Count Lymph % (Auto) Lymph # (Auto) Seg Neutrophils % Seg Neuts % (Manual) Lymphocytes % (Manual) Monocytes % (Manual) Nucleated RBC % Seg Neutrophils # Seg Neutrophils # Man Lymphocytes # (Manual) Monocytes # (Manual) Eosinophils # (Manual) INR D-Dimer ABG pH 7.202 L POC ABG pCO2 63.7 H POC ABG pO2 69.0 L ABG pO2 ABG HCO3 ABG O2 Saturation ABG Base Excess ABG Hemoglobin 9.4 L ABG Oxyhemoglobin ABG Sodium ABG Potassium ABG Chloride 108.0 H ABG Glucose 186 H Oxyhemoglobin Carboxyhemoglobin Sodium Potassium Chloride Carbon Dioxide BUN 78 H Creatinine 8.0 H Glucose 163 H POC Glucose 157 H Hemoglobin A1c Lactic Acid Calcium 6.3 L Phosphorus Magnesium Ferritin Total Bilirubin AST ALT Lactate Dehydrogenase C-Reactive Protein Albumin Triglycerides Arterial Blood Glucose 186 H Arterial Blood Ionized Calcium 3.9 L Urine Creatinine Coronavirus (PCR) Crossmatch 02/05/21 02/05/21 02/05/21 11:47 17:39 23:40 WBC RBC Hgb Hct MCV MCH MCHC RDW Plt Count Lymph % (Auto) Lymph # (Auto) Seg Neutrophils % Seg Neuts % (Manual) Lymphocytes % (Manual) Monocytes % (Manual) Nucleated RBC % Seg Neutrophils # Seg Neutrophils # Man Lymphocytes # (Manual) Monocytes # (Manual) Eosinophils # (Manual) INR D-Dimer ABG pH 7.273 L POC ABG pCO2 62.1 H POC ABG pO2 72.0 L ABG pO2 ABG HCO3 ABG O2 Saturation ABG Base Excess ABG Hemoglobin 9.1 L ABG Oxyhemoglobin 91.3 L ABG Sodium ABG Potassium 3.1 L ABG Chloride ABG Glucose 125 H Oxyhemoglobin Carboxyhemoglobin Sodium Potassium Chloride Carbon Dioxide BUN Creatinine Glucose POC Glucose 126 H 126 H Hemoglobin A1c Lactic Acid Calcium Phosphorus Magnesium Ferritin Total Bilirubin AST ALT Lactate Dehydrogenase C-Reactive Protein Albumin Triglycerides Arterial Blood Glucose 125 H Arterial Blood Ionized Calcium 4.0 L Urine Creatinine Coronavirus (PCR) Crossmatch 02/06/21 02/06/21 02/06/21 04:30 04:57 09:45 WBC RBC Hgb Hct MCV MCH MCHC RDW Plt Count Lymph % (Auto) Lymph # (Auto) Seg Neutrophils % Seg Neuts % (Manual) Lymphocytes % (Manual) Monocytes % (Manual) Nucleated RBC % Seg Neutrophils # Seg Neutrophils # Man Lymphocytes # (Manual) Monocytes # (Manual) Eosinophils # (Manual) INR D-Dimer ABG pH 7.159 L 7.138 L* POC ABG pCO2 76.3 H POC ABG pO2 66.9 L ABG pO2 ABG HCO3 ABG O2 Saturation 93.4 L ABG Base Excess -6.0 L ABG Hemoglobin 11.2 L 11.7 L ABG Oxyhemoglobin 88.2 L ABG Sodium ABG Potassium ABG Chloride ABG Glucose 134 H Oxyhemoglobin 91.2 L Carboxyhemoglobin Sodium Potassium Chloride Carbon Dioxide BUN Creatinine Glucose POC Glucose 124 H Hemoglobin A1c Lactic Acid Calcium Phosphorus Magnesium Ferritin Total Bilirubin AST ALT Lactate Dehydrogenase C-Reactive Protein Albumin Triglycerides Arterial Blood Glucose 134 H Arterial Blood Ionized Calcium 3.9 L Urine Creatinine Coronavirus (PCR) Crossmatch 02/06/21 02/06/21 02/06/21 11:11 17:00 17:00 WBC RBC Hgb Hct MCV MCH MCHC RDW Plt Count Lymph % (Auto) Lymph # (Auto) Seg Neutrophils % Seg Neuts % (Manual) Lymphocytes % (Manual) Monocytes % (Manual) Nucleated RBC % Seg Neutrophils # Seg Neutrophils # Man Lymphocytes # (Manual) Monocytes # (Manual) Eosinophils # (Manual) INR D-Dimer ABG pH 7.158 L* POC ABG pCO2 POC ABG pO2 ABG pO2 109.8 H ABG HCO3 28.7 H ABG O2 Saturation ABG Base Excess -2.5 L ABG Hemoglobin ABG Oxyhemoglobin ABG Sodium ABG Potassium ABG Chloride ABG Glucose Oxyhemoglobin 94.5 L Carboxyhemoglobin Sodium Potassium Chloride Carbon Dioxide BUN Creatinine Glucose POC Glucose 120 H Hemoglobin A1c Lactic Acid Calcium Phosphorus Magnesium Ferritin Total Bilirubin AST ALT Lactate Dehydrogenase C-Reactive Protein Albumin Triglycerides 503 H Arterial Blood Glucose Arterial Blood Ionized Calcium Urine Creatinine Coronavirus (PCR) Crossmatch 02/06/21 02/06/21 02/06/21 17:28 20:16 Unknown WBC 13.5 H RBC 2.98 L Hgb 9.3 L Hct 28.6 L MCV 96 H MCH MCHC RDW Plt Count Lymph % (Auto) Lymph # (Auto) Seg Neutrophils % Seg Neuts % (Manual) 87.0 H Lymphocytes % (Manual) 7.0 L Monocytes % (Manual) Nucleated RBC % Seg Neutrophils # Seg Neutrophils # Man 11.7 H Lymphocytes # (Manual) 0.9 L Monocytes # (Manual) Eosinophils # (Manual) 0.5 H INR D-Dimer ABG pH POC ABG pCO2 POC ABG pO2 ABG pO2 ABG HCO3 ABG O2 Saturation ABG Base Excess ABG Hemoglobin ABG Oxyhemoglobin ABG Sodium ABG Potassium ABG Chloride ABG Glucose Oxyhemoglobin Carboxyhemoglobin Sodium Potassium Chloride Carbon Dioxide BUN Creatinine Glucose POC Glucose 147 H 164 H Hemoglobin A1c Lactic Acid Calcium Phosphorus Magnesium Ferritin Total Bilirubin AST ALT Lactate Dehydrogenase C-Reactive Protein Albumin Triglycerides Arterial Blood Glucose Arterial Blood Ionized Calcium Urine Creatinine Coronavirus (PCR) Crossmatch 02/06/21 02/07/21 02/07/21 Unknown 01:21 04:00 WBC 12.0 H RBC 2.61 L Hgb 8.2 L Hct 24.5 L MCV MCH MCHC RDW Plt Count Lymph % (Auto) 8.9 L Lymph # (Auto) 1.1 L Seg Neutrophils % 86.3 H Seg Neuts % (Manual) Lymphocytes % (Manual) Monocytes % (Manual) Nucleated RBC % Seg Neutrophils # 10.3 H Seg Neutrophils # Man Lymphocytes # (Manual) Monocytes # (Manual) Eosinophils # (Manual) INR D-Dimer ABG pH POC ABG pCO2 POC ABG pO2 ABG pO2 ABG HCO3 ABG O2 Saturation ABG Base Excess ABG Hemoglobin ABG Oxyhemoglobin ABG Sodium ABG Potassium ABG Chloride ABG Glucose Oxyhemoglobin Carboxyhemoglobin Sodium Potassium 3.5 L Chloride Carbon Dioxide BUN 58 H Creatinine 6.6 H Glucose 107 H POC Glucose 173 H Hemoglobin A1c Lactic Acid Calcium 6.7 L Phosphorus 8.00 H D Magnesium Ferritin Total Bilirubin AST ALT Lactate Dehydrogenase C-Reactive Protein Albumin Triglycerides Arterial Blood Glucose Arterial Blood Ionized Calcium Urine Creatinine Coronavirus (PCR) Crossmatch 02/07/21 02/07/21 02/07/21 04:00 04:45 11:49 WBC RBC Hgb Hct MCV MCH MCHC RDW Plt Count Lymph % (Auto) Lymph # (Auto) Seg Neutrophils % Seg Neuts % (Manual) Lymphocytes % (Manual) Monocytes % (Manual) Nucleated RBC % Seg Neutrophils # Seg Neutrophils # Man Lymphocytes # (Manual) Monocytes # (Manual) Eosinophils # (Manual) INR D-Dimer ABG pH 7.287 L POC ABG pCO2 64.8 H POC ABG pO2 74.0 L ABG pO2 ABG HCO3 ABG O2 Saturation ABG Base Excess ABG Hemoglobin 9.1 L ABG Oxyhemoglobin 92.0 L ABG Sodium ABG Potassium 2.8 L ABG Chloride ABG Glucose 226 H Oxyhemoglobin Carboxyhemoglobin Sodium Potassium Chloride Carbon Dioxide BUN Creatinine Glucose POC Glucose 170 H Hemoglobin A1c Lactic Acid Calcium Phosphorus 5.50 H D Magnesium Ferritin Total Bilirubin AST ALT Lactate Dehydrogenase C-Reactive Protein Albumin Triglycerides Arterial Blood Glucose 226 H Arterial Blood Ionized Calcium 3.7 L Urine Creatinine Coronavirus (PCR) Crossmatch 02/07/21 02/07/21 02/07/21 13:48 17:45 23:02 WBC RBC Hgb Hct MCV MCH MCHC RDW Plt Count Lymph % (Auto) Lymph # (Auto) Seg Neutrophils % Seg Neuts % (Manual) Lymphocytes % (Manual) Monocytes % (Manual) Nucleated RBC % Seg Neutrophils # Seg Neutrophils # Man Lymphocytes # (Manual) Monocytes # (Manual) Eosinophils # (Manual) INR D-Dimer ABG pH POC ABG pCO2 POC ABG pO2 ABG pO2 ABG HCO3 ABG O2 Saturation ABG Base Excess ABG Hemoglobin ABG Oxyhemoglobin ABG Sodium ABG Potassium ABG Chloride ABG Glucose Oxyhemoglobin Carboxyhemoglobin Sodium 136 L Potassium 2.6 L* D Chloride 95.1 L Carbon Dioxide 33 H D BUN 30 H Creatinine 3.6 H Glucose 184 H POC Glucose 172 H 172 H Hemoglobin A1c Lactic Acid Calcium 6.9 L Phosphorus Magnesium Ferritin Total Bilirubin AST ALT Lactate Dehydrogenase C-Reactive Protein Albumin Triglycerides Arterial Blood Glucose Arterial Blood Ionized Calcium Urine Creatinine Coronavirus (PCR) Crossmatch 02/08/21 02/08/21 02/08/21 05:22 06:00 06:00 WBC RBC 2.21 L Hgb 7.2 L Hct 21.0 L MCV 95 H MCH MCHC RDW Plt Count Lymph % (Auto) Lymph # (Auto) Seg Neutrophils % Seg Neuts % (Manual) 87.0 H Lymphocytes % (Manual) 4.0 L Monocytes % (Manual) Nucleated RBC % Seg Neutrophils # Seg Neutrophils # Man 8.5 H Lymphocytes # (Manual) 0.4 L Monocytes # (Manual) Eosinophils # (Manual) INR D-Dimer ABG pH POC ABG pCO2 POC ABG pO2 ABG pO2 ABG HCO3 ABG O2 Saturation ABG Base Excess ABG Hemoglobin ABG Oxyhemoglobin ABG Sodium ABG Potassium ABG Chloride ABG Glucose Oxyhemoglobin Carboxyhemoglobin Sodium 136 L Potassium 2.4 L* Chloride 93.1 L Carbon Dioxide 36 H BUN 43 H Creatinine 5.4 H Glucose 167 H POC Glucose 162 H Hemoglobin A1c Lactic Acid Calcium 6.3 L Phosphorus Magnesium Ferritin Total Bilirubin AST ALT Lactate Dehydrogenase C-Reactive Protein Albumin Triglycerides Arterial Blood Glucose Arterial Blood Ionized Calcium Urine Creatinine Coronavirus (PCR) Crossmatch 02/08/21 02/08/21 02/08/21 11:44 17:53 18:56 WBC RBC Hgb Hct MCV MCH MCHC RDW Plt Count Lymph % (Auto) Lymph # (Auto) Seg Neutrophils % Seg Neuts % (Manual) Lymphocytes % (Manual) Monocytes % (Manual) Nucleated RBC % Seg Neutrophils # Seg Neutrophils # Man Lymphocytes # (Manual) Monocytes # (Manual) Eosinophils # (Manual) INR D-Dimer ABG pH POC ABG pCO2 POC ABG pO2 ABG pO2 ABG HCO3 ABG O2 Saturation ABG Base Excess ABG Hemoglobin ABG Oxyhemoglobin ABG Sodium ABG Potassium ABG Chloride ABG Glucose Oxyhemoglobin Carboxyhemoglobin Sodium Potassium 2.9 L* D Chloride Carbon Dioxide BUN Creatinine Glucose POC Glucose 164 H 154 H Hemoglobin A1c Lactic Acid Calcium Phosphorus Magnesium Ferritin Total Bilirubin AST ALT Lactate Dehydrogenase C-Reactive Protein Albumin Triglycerides Arterial Blood Glucose Arterial Blood Ionized Calcium Urine Creatinine Coronavirus (PCR) Crossmatch 02/08/21 02/08/21 02/09/21 23:24 23:58 03:21 WBC RBC Hgb Hct MCV MCH MCHC RDW Plt Count Lymph % (Auto) Lymph # (Auto) Seg Neutrophils % Seg Neuts % (Manual) Lymphocytes % (Manual) Monocytes % (Manual) Nucleated RBC % Seg Neutrophils # Seg Neutrophils # Man Lymphocytes # (Manual) Monocytes # (Manual) Eosinophils # (Manual) INR D-Dimer ABG pH 7.319 L POC ABG pCO2 63.3 H 68.3 H POC ABG pO2 71.2 L 76.5 L ABG pO2 ABG HCO3 ABG O2 Saturation ABG Base Excess ABG Hemoglobin 8.2 L 7.0 L ABG Oxyhemoglobin 91.8 L 92.2 L ABG Sodium 134.6 L 133.0 L ABG Potassium 2.3 L 3.1 L ABG Chloride 96.0 L 95.0 L ABG Glucose 184 H 154 H Oxyhemoglobin Carboxyhemoglobin Sodium Potassium Chloride Carbon Dioxide BUN Creatinine Glucose POC Glucose 152 H Hemoglobin A1c Lactic Acid Calcium Phosphorus Magnesium Ferritin Total Bilirubin AST ALT Lactate Dehydrogenase C-Reactive Protein Albumin Triglycerides Arterial Blood Glucose 184 H 154 H Arterial Blood Ionized Calcium 3.6 L 3.5 L Urine Creatinine Coronavirus (PCR) Crossmatch 02/09/21 02/09/21 02/09/21 05:10 05:10 06:04 WBC RBC 2.14 L Hgb 7.0 L Hct 20.5 L MCV 96 H MCH 33 H MCHC RDW Plt Count Lymph % (Auto) Lymph # (Auto) Seg Neutrophils % Seg Neuts % (Manual) 82.0 H Lymphocytes % (Manual) 9.0 L Monocytes % (Manual) Nucleated RBC % 1.0 H Seg Neutrophils # Seg Neutrophils # Man 8.9 H Lymphocytes # (Manual) 1.0 L Monocytes # (Manual) Eosinophils # (Manual) INR D-Dimer ABG pH POC ABG pCO2 POC ABG pO2 ABG pO2 ABG HCO3 ABG O2 Saturation ABG Base Excess ABG Hemoglobin ABG Oxyhemoglobin ABG Sodium ABG Potassium ABG Chloride ABG Glucose Oxyhemoglobin Carboxyhemoglobin Sodium 135 L Potassium 3.2 L Chloride 91.0 L Carbon Dioxide 32 H BUN 54 H Creatinine 6.6 H Glucose 163 H POC Glucose 149 H Hemoglobin A1c Lactic Acid Calcium 6.2 L Phosphorus Magnesium Ferritin Total Bilirubin AST ALT Lactate Dehydrogenase C-Reactive Protein Albumin Triglycerides Arterial Blood Glucose Arterial Blood Ionized Calcium Urine Creatinine Coronavirus (PCR) Crossmatch 02/09/21 02/09/21 02/09/21 12:02 13:32 13:40 WBC RBC Hgb Hct MCV MCH MCHC RDW Plt Count Lymph % (Auto) Lymph # (Auto) Seg Neutrophils % Seg Neuts % (Manual) Lymphocytes % (Manual) Monocytes % (Manual) Nucleated RBC % Seg Neutrophils # Seg Neutrophils # Man Lymphocytes # (Manual) Monocytes # (Manual) Eosinophils # (Manual) INR D-Dimer ABG pH POC ABG pCO2 POC ABG pO2 ABG pO2 ABG HCO3 ABG O2 Saturation ABG Base Excess ABG Hemoglobin ABG Oxyhemoglobin ABG Sodium ABG Potassium ABG Chloride ABG Glucose Oxyhemoglobin Carboxyhemoglobin Sodium Potassium Chloride Carbon Dioxide BUN Creatinine Glucose POC Glucose 147 H Hemoglobin A1c Lactic Acid Calcium Phosphorus Magnesium Ferritin Total Bilirubin AST ALT Lactate Dehydrogenase C-Reactive Protein Albumin Triglycerides 250 H Arterial Blood Glucose Arterial Blood Ionized Calcium Urine Creatinine Coronavirus (PCR) Crossmatch See Detail 02/09/21 02/09/21 02/10/21 18:06 23:42 04:00 WBC RBC Hgb Hct MCV MCH MCHC RDW Plt Count Lymph % (Auto) Lymph # (Auto) Seg Neutrophils % Seg Neuts % (Manual) Lymphocytes % (Manual) Monocytes % (Manual) Nucleated RBC % Seg Neutrophils # Seg Neutrophils # Man Lymphocytes # (Manual) Monocytes # (Manual) Eosinophils # (Manual) INR D-Dimer ABG pH POC ABG pCO2 65.8 H POC ABG pO2 68.0 L ABG pO2 ABG HCO3 ABG O2 Saturation ABG Base Excess ABG Hemoglobin 8.3 L ABG Oxyhemoglobin ABG Sodium 132.4 L ABG Potassium 2.9 L ABG Chloride 92.0 L ABG Glucose 174 H Oxyhemoglobin Carboxyhemoglobin Sodium Potassium Chloride Carbon Dioxide BUN Creatinine Glucose POC Glucose 152 H 147 H Hemoglobin A1c Lactic Acid Calcium Phosphorus Magnesium Ferritin Total Bilirubin AST ALT Lactate Dehydrogenase C-Reactive Protein Albumin Triglycerides Arterial Blood Glucose 174 H Arterial Blood Ionized Calcium 3.4 L Urine Creatinine Coronavirus (PCR) Crossmatch 02/10/21 02/10/21 02/10/21 05:32 11:29 14:08 WBC 12.5 H RBC 2.14 L Hgb 6.6 L Hct 20.2 L MCV MCH MCHC RDW Plt Count Lymph % (Auto) Lymph # (Auto) Seg Neutrophils % Seg Neuts % (Manual) Lymphocytes % (Manual) Monocytes % (Manual) Nucleated RBC % Seg Neutrophils # Seg Neutrophils # Man Lymphocytes # (Manual) Monocytes # (Manual) Eosinophils # (Manual) INR D-Dimer ABG pH POC ABG pCO2 POC ABG pO2 ABG pO2 ABG HCO3 ABG O2 Saturation ABG Base Excess ABG Hemoglobin ABG Oxyhemoglobin ABG Sodium ABG Potassium ABG Chloride ABG Glucose Oxyhemoglobin Carboxyhemoglobin Sodium Potassium Chloride Carbon Dioxide BUN Creatinine Glucose POC Glucose 167 H 147 H Hemoglobin A1c Lactic Acid Calcium Phosphorus Magnesium Ferritin Total Bilirubin AST ALT Lactate Dehydrogenase C-Reactive Protein Albumin Triglycerides Arterial Blood Glucose Arterial Blood Ionized Calcium Urine Creatinine Coronavirus (PCR) Crossmatch 02/10/21 02/10/21 02/10/21 14:08 18:11 22:32 WBC RBC Hgb 6.4 L Hct 19.1 L* MCV MCH MCHC RDW Plt Count Lymph % (Auto) Lymph # (Auto) Seg Neutrophils % Seg Neuts % (Manual) Lymphocytes % (Manual) Monocytes % (Manual) Nucleated RBC % Seg Neutrophils # Seg Neutrophils # Man Lymphocytes # (Manual) Monocytes # (Manual) Eosinophils # (Manual) INR D-Dimer ABG pH POC ABG pCO2 POC ABG pO2 ABG pO2 ABG HCO3 ABG O2 Saturation ABG Base Excess ABG Hemoglobin ABG Oxyhemoglobin ABG Sodium ABG Potassium ABG Chloride ABG Glucose Oxyhemoglobin Carboxyhemoglobin Sodium 136 L Potassium 2.9 L* Chloride 90.2 L Carbon Dioxide 33 H BUN 42 H Creatinine 7.5 H Glucose 155 H POC Glucose 173 H Hemoglobin A1c Lactic Acid Calcium 6.1 L Phosphorus Magnesium Ferritin Total Bilirubin AST ALT Lactate Dehydrogenase C-Reactive Protein Albumin Triglycerides Arterial Blood Glucose Arterial Blood Ionized Calcium Urine Creatinine Coronavirus (PCR) Crossmatch 02/11/21 02/11/21 02/11/21 00:28 04:05 04:30 WBC RBC Hgb Hct MCV MCH MCHC RDW Plt Count Lymph % (Auto) Lymph # (Auto) Seg Neutrophils % Seg Neuts % (Manual) Lymphocytes % (Manual) Monocytes % (Manual) Nucleated RBC % Seg Neutrophils # Seg Neutrophils # Man Lymphocytes # (Manual) Monocytes # (Manual) Eosinophils # (Manual) INR D-Dimer ABG pH 7.307 L POC ABG pCO2 72.2 H POC ABG pO2 72.3 L ABG pO2 ABG HCO3 ABG O2 Saturation ABG Base Excess ABG Hemoglobin 8.2 L ABG Oxyhemoglobin ABG Sodium 132.3 L ABG Potassium 3.2 L ABG Chloride 91.0 L ABG Glucose 197 H Oxyhemoglobin Carboxyhemoglobin Sodium 135 L Potassium 3.3 L Chloride 87.1 L Carbon Dioxide 36 H BUN 71 H Creatinine 7.9 H Glucose 263 H POC Glucose 192 H Hemoglobin A1c Lactic Acid Calcium 6.2 L Phosphorus Magnesium Ferritin Total Bilirubin AST ALT Lactate Dehydrogenase C-Reactive Protein Albumin Triglycerides Arterial Blood Glucose 197 H Arterial Blood Ionized Calcium 3.3 L Urine Creatinine Coronavirus (PCR) Crossmatch 02/11/21 02/11/21 02/11/21 04:30 05:47 08:27 WBC RBC 2.22 L Hgb 7.2 L Hct 21.0 L MCV MCH MCHC RDW Plt Count Lymph % (Auto) 8.7 L Lymph # (Auto) 0.9 L Seg Neutrophils % 85.5 H Seg Neuts % (Manual) Lymphocytes % (Manual) Monocytes % (Manual) Nucleated RBC % Seg Neutrophils # 9.2 H Seg Neutrophils # Man Lymphocytes # (Manual) Monocytes # (Manual) Eosinophils # (Manual) INR 1.17 H D-Dimer 1930.92 H ABG pH POC ABG pCO2 POC ABG pO2 ABG pO2 ABG HCO3 ABG O2 Saturation ABG Base Excess ABG Hemoglobin ABG Oxyhemoglobin ABG Sodium ABG Potassium ABG Chloride ABG Glucose Oxyhemoglobin Carboxyhemoglobin Sodium Potassium Chloride Carbon Dioxide BUN Creatinine Glucose POC Glucose 189 H Hemoglobin A1c Lactic Acid Calcium Phosphorus Magnesium Ferritin Total Bilirubin AST ALT Lactate Dehydrogenase C-Reactive Protein Albumin Triglycerides Arterial Blood Glucose Arterial Blood Ionized Calcium Urine Creatinine Coronavirus (PCR) Crossmatch 02/11/21 02/11/21 02/11/21 09:00 09:00 13:18 WBC RBC Hgb Hct MCV MCH MCHC RDW Plt Count Lymph % (Auto) Lymph # (Auto) Seg Neutrophils % Seg Neuts % (Manual) Lymphocytes % (Manual) Monocytes % (Manual) Nucleated RBC % Seg Neutrophils # Seg Neutrophils # Man Lymphocytes # (Manual) Monocytes # (Manual) Eosinophils # (Manual) INR D-Dimer ABG pH POC ABG pCO2 POC ABG pO2 ABG pO2 ABG HCO3 ABG O2 Saturation ABG Base Excess ABG Hemoglobin ABG Oxyhemoglobin ABG Sodium ABG Potassium ABG Chloride ABG Glucose Oxyhemoglobin Carboxyhemoglobin Sodium Potassium Chloride Carbon Dioxide BUN Creatinine Glucose 126 H POC Glucose 160 H Hemoglobin A1c Lactic Acid Calcium Phosphorus Magnesium Ferritin 1253.0 H Total Bilirubin AST ALT Lactate Dehydrogenase 649 H C-Reactive Protein 12.60 H Albumin Triglycerides Arterial Blood Glucose Arterial Blood Ionized Calcium Urine Creatinine Coronavirus (PCR) Crossmatch 02/11/21 02/11/21 02/11/21 14:30 16:59 22:34 WBC RBC Hgb 7.1 L 6.7 L Hct 20.5 L 19.9 L* MCV MCH MCHC RDW Plt Count Lymph % (Auto) Lymph # (Auto) Seg Neutrophils % Seg Neuts % (Manual) Lymphocytes % (Manual) Monocytes % (Manual) Nucleated RBC % Seg Neutrophils # Seg Neutrophils # Man Lymphocytes # (Manual) Monocytes # (Manual) Eosinophils # (Manual) INR D-Dimer ABG pH POC ABG pCO2 POC ABG pO2 ABG pO2 ABG HCO3 ABG O2 Saturation ABG Base Excess ABG Hemoglobin ABG Oxyhemoglobin ABG Sodium ABG Potassium ABG Chloride ABG Glucose Oxyhemoglobin Carboxyhemoglobin Sodium Potassium Chloride Carbon Dioxide BUN Creatinine Glucose POC Glucose 151 H Hemoglobin A1c Lactic Acid Calcium Phosphorus Magnesium Ferritin Total Bilirubin AST ALT Lactate Dehydrogenase C-Reactive Protein Albumin Triglycerides Arterial Blood Glucose Arterial Blood Ionized Calcium Urine Creatinine Coronavirus (PCR) Crossmatch 02/11/21 02/12/21 02/12/21 23:42 04:41 05:19 WBC RBC Hgb Hct MCV MCH MCHC RDW Plt Count Lymph % (Auto) Lymph # (Auto) Seg Neutrophils % Seg Neuts % (Manual) Lymphocytes % (Manual) Monocytes % (Manual) Nucleated RBC % Seg Neutrophils # Seg Neutrophils # Man Lymphocytes # (Manual) Monocytes # (Manual) Eosinophils # (Manual) INR D-Dimer ABG pH POC ABG pCO2 POC ABG pO2 ABG pO2 69.0 L ABG HCO3 32.5 H ABG O2 Saturation ABG Base Excess 7.7 H ABG Hemoglobin 5.1 L ABG Oxyhemoglobin ABG Sodium ABG Potassium ABG Chloride ABG Glucose Oxyhemoglobin 94.7 L Carboxyhemoglobin Sodium Potassium Chloride Carbon Dioxide BUN Creatinine Glucose POC Glucose 165 H 153 H Hemoglobin A1c Lactic Acid Calcium Phosphorus Magnesium Ferritin Total Bilirubin AST ALT Lactate Dehydrogenase C-Reactive Protein Albumin Triglycerides Arterial Blood Glucose Arterial Blood Ionized Calcium Urine Creatinine Coronavirus (PCR) Crossmatch 02/12/21 02/12/21 02/12/21 06:35 06:35 08:40 WBC RBC 2.21 L Hgb 7.2 L Hct 20.7 L MCV MCH 33 H MCHC 35 H RDW Plt Count Lymph % (Auto) Lymph # (Auto) Seg Neutrophils % Seg Neuts % (Manual) Lymphocytes % (Manual) Monocytes % (Manual) Nucleated RBC % Seg Neutrophils # Seg Neutrophils # Man Lymphocytes # (Manual) Monocytes # (Manual) Eosinophils # (Manual) INR D-Dimer ABG pH POC ABG pCO2 POC ABG pO2 ABG pO2 ABG HCO3 ABG O2 Saturation ABG Base Excess ABG Hemoglobin ABG Oxyhemoglobin ABG Sodium ABG Potassium ABG Chloride ABG Glucose Oxyhemoglobin Carboxyhemoglobin Sodium 135 L Potassium 3.4 L Chloride 91.8 L Carbon Dioxide 36 H BUN 57 H Creatinine 6.8 H Glucose 163 H POC Glucose Hemoglobin A1c Lactic Acid Calcium 7.0 L Phosphorus Magnesium 1.60 L Ferritin Total Bilirubin AST ALT Lactate Dehydrogenase C-Reactive Protein Albumin Triglycerides Arterial Blood Glucose Arterial Blood Ionized Calcium Urine Creatinine Coronavirus (PCR) Crossmatch 02/12/21 02/12/21 02/12/21 10:45 12:04 17:19 WBC RBC Hgb Hct MCV MCH MCHC RDW Plt Count Lymph % (Auto) Lymph # (Auto) Seg Neutrophils % Seg Neuts % (Manual) Lymphocytes % (Manual) Monocytes % (Manual) Nucleated RBC % Seg Neutrophils # Seg Neutrophils # Man Lymphocytes # (Manual) Monocytes # (Manual) Eosinophils # (Manual) INR D-Dimer ABG pH POC ABG pCO2 POC ABG pO2 ABG pO2 ABG HCO3 ABG O2 Saturation ABG Base Excess ABG Hemoglobin ABG Oxyhemoglobin ABG Sodium ABG Potassium ABG Chloride ABG Glucose Oxyhemoglobin Carboxyhemoglobin Sodium Potassium Chloride Carbon Dioxide BUN Creatinine Glucose POC Glucose 165 H 165 H Hemoglobin A1c Lactic Acid Calcium Phosphorus Magnesium Ferritin Total Bilirubin AST ALT Lactate Dehydrogenase C-Reactive Protein Albumin Triglycerides 182 H Arterial Blood Glucose Arterial Blood Ionized Calcium Urine Creatinine Coronavirus (PCR) Crossmatch 02/12/21 02/13/21 02/13/21 23:18 05:00 05:36 WBC RBC Hgb Hct MCV MCH MCHC RDW Plt Count Lymph % (Auto) Lymph # (Auto) Seg Neutrophils % Seg Neuts % (Manual) Lymphocytes % (Manual) Monocytes % (Manual) Nucleated RBC % Seg Neutrophils # Seg Neutrophils # Man Lymphocytes # (Manual) Monocytes # (Manual) Eosinophils # (Manual) INR D-Dimer ABG pH POC ABG pCO2 60.8 H POC ABG pO2 76.4 L ABG pO2 ABG HCO3 ABG O2 Saturation ABG Base Excess ABG Hemoglobin 7.4 L ABG Oxyhemoglobin ABG Sodium 133.2 L ABG Potassium 3.3 L ABG Chloride 96.0 L ABG Glucose 168 H Oxyhemoglobin Carboxyhemoglobin Sodium Potassium Chloride Carbon Dioxide BUN Creatinine Glucose POC Glucose 163 H 151 H Hemoglobin A1c Lactic Acid Calcium Phosphorus Magnesium Ferritin Total Bilirubin AST ALT Lactate Dehydrogenase C-Reactive Protein Albumin Triglycerides Arterial Blood Glucose 168 H Arterial Blood Ionized Calcium 4.3 L Urine Creatinine Coronavirus (PCR) Crossmatch 02/13/21 02/13/21 02/13/21 06:40 06:40 06:40 WBC RBC 2.19 L Hgb 7.0 L Hct 20.8 L MCV 95 H MCH MCHC RDW Plt Count Lymph % (Auto) Lymph # (Auto) Seg Neutrophils % Seg Neuts % (Manual) Lymphocytes % (Manual) Monocytes % (Manual) Nucleated RBC % Seg Neutrophils # Seg Neutrophils # Man Lymphocytes # (Manual) Monocytes # (Manual) Eosinophils # (Manual) INR D-Dimer ABG pH POC ABG pCO2 POC ABG pO2 ABG pO2 ABG HCO3 ABG O2 Saturation ABG Base Excess ABG Hemoglobin ABG Oxyhemoglobin ABG Sodium ABG Potassium ABG Chloride ABG Glucose Oxyhemoglobin Carboxyhemoglobin Sodium 135 L Potassium 3.4 L Chloride 93.0 L Carbon Dioxide 32 H BUN 46 H Creatinine 5.8 H Glucose 148 H POC Glucose Hemoglobin A1c Lactic Acid Calcium 7.9 L Phosphorus Magnesium Ferritin Total Bilirubin AST ALT Lactate Dehydrogenase C-Reactive Protein 16.80 H Albumin Triglycerides Arterial Blood Glucose Arterial Blood Ionized Calcium Urine Creatinine Coronavirus (PCR) Crossmatch 02/13/21 02/13/21 02/13/21 06:40 07:38 07:38 WBC RBC Hgb Hct MCV MCH MCHC RDW Plt Count Lymph % (Auto) Lymph # (Auto) Seg Neutrophils % Seg Neuts % (Manual) Lymphocytes % (Manual) Monocytes % (Manual) Nucleated RBC % Seg Neutrophils # Seg Neutrophils # Man Lymphocytes # (Manual) Monocytes # (Manual) Eosinophils # (Manual) INR D-Dimer 1722.16 H ABG pH POC ABG pCO2 POC ABG pO2 ABG pO2 ABG HCO3 ABG O2 Saturation ABG Base Excess ABG Hemoglobin ABG Oxyhemoglobin ABG Sodium ABG Potassium ABG Chloride ABG Glucose Oxyhemoglobin Carboxyhemoglobin Sodium Potassium Chloride Carbon Dioxide BUN Creatinine Glucose POC Glucose Hemoglobin A1c Lactic Acid Calcium Phosphorus Magnesium 1.60 L Ferritin 976.5 H Total Bilirubin AST ALT Lactate Dehydrogenase C-Reactive Protein Albumin Triglycerides Arterial Blood Glucose Arterial Blood Ionized Calcium Urine Creatinine Coronavirus (PCR) Crossmatch 02/13/21 02/13/21 02/13/21 12:24 16:57 23:32 WBC RBC Hgb Hct MCV MCH MCHC RDW Plt Count Lymph % (Auto) Lymph # (Auto) Seg Neutrophils % Seg Neuts % (Manual) Lymphocytes % (Manual) Monocytes % (Manual) Nucleated RBC % Seg Neutrophils # Seg Neutrophils # Man Lymphocytes # (Manual) Monocytes # (Manual) Eosinophils # (Manual) INR D-Dimer ABG pH POC ABG pCO2 POC ABG pO2 ABG pO2 ABG HCO3 ABG O2 Saturation ABG Base Excess ABG Hemoglobin ABG Oxyhemoglobin ABG Sodium ABG Potassium ABG Chloride ABG Glucose Oxyhemoglobin Carboxyhemoglobin Sodium Potassium Chloride Carbon Dioxide BUN Creatinine Glucose POC Glucose 141 H 156 H 161 H Hemoglobin A1c Lactic Acid Calcium Phosphorus Magnesium Ferritin Total Bilirubin AST ALT Lactate Dehydrogenase C-Reactive Protein Albumin Triglycerides Arterial Blood Glucose Arterial Blood Ionized Calcium Urine Creatinine Coronavirus (PCR) Crossmatch 02/14/21 02/14/21 02/14/21 04:00 05:41 11:00 WBC RBC 2.14 L Hgb 6.9 L Hct 20.7 L MCV 97 H MCH 33 H MCHC RDW Plt Count Lymph % (Auto) Lymph # (Auto) Seg Neutrophils % Seg Neuts % (Manual) Lymphocytes % (Manual) Monocytes % (Manual) Nucleated RBC % Seg Neutrophils # Seg Neutrophils # Man Lymphocytes # (Manual) Monocytes # (Manual) Eosinophils # (Manual) INR D-Dimer ABG pH POC ABG pCO2 POC ABG pO2 ABG pO2 ABG HCO3 ABG O2 Saturation ABG Base Excess ABG Hemoglobin ABG Oxyhemoglobin ABG Sodium ABG Potassium ABG Chloride ABG Glucose Oxyhemoglobin Carboxyhemoglobin Sodium Potassium Chloride Carbon Dioxide BUN Creatinine Glucose POC Glucose 143 H Hemoglobin A1c Lactic Acid Calcium Phosphorus Magnesium Ferritin Total Bilirubin AST ALT Lactate Dehydrogenase C-Reactive Protein Albumin Triglycerides Arterial Blood Glucose Arterial Blood Ionized Calcium Urine Creatinine Coronavirus (PCR) Crossmatch See Detail 02/14/21 02/14/21 02/14/21 11:51 18:08 23:41 WBC RBC Hgb Hct MCV MCH MCHC RDW Plt Count Lymph % (Auto) Lymph # (Auto) Seg Neutrophils % Seg Neuts % (Manual) Lymphocytes % (Manual) Monocytes % (Manual) Nucleated RBC % Seg Neutrophils # Seg Neutrophils # Man Lymphocytes # (Manual) Monocytes # (Manual) Eosinophils # (Manual) INR D-Dimer ABG pH POC ABG pCO2 POC ABG pO2 ABG pO2 ABG HCO3 ABG O2 Saturation ABG Base Excess ABG Hemoglobin ABG Oxyhemoglobin ABG Sodium ABG Potassium ABG Chloride ABG Glucose Oxyhemoglobin Carboxyhemoglobin Sodium Potassium Chloride Carbon Dioxide BUN Creatinine Glucose POC Glucose 113 H 123 H 120 H Hemoglobin A1c Lactic Acid Calcium Phosphorus Magnesium Ferritin Total Bilirubin AST ALT Lactate Dehydrogenase C-Reactive Protein Albumin Triglycerides Arterial Blood Glucose Arterial Blood Ionized Calcium Urine Creatinine Coronavirus (PCR) Crossmatch 02/14/21 02/15/21 02/15/21 Unknown 05:00 05:00 WBC RBC Hgb Hct MCV MCH MCHC RDW Plt Count Lymph % (Auto) Lymph # (Auto) Seg Neutrophils % Seg Neuts % (Manual) Lymphocytes % (Manual) Monocytes % (Manual) Nucleated RBC % Seg Neutrophils # Seg Neutrophils # Man Lymphocytes # (Manual) Monocytes # (Manual) Eosinophils # (Manual) INR D-Dimer ABG pH POC ABG pCO2 53.4 H POC ABG pO2 61.8 L ABG pO2 ABG HCO3 ABG O2 Saturation ABG Base Excess ABG Hemoglobin 7.7 L ABG Oxyhemoglobin 88.8 L ABG Sodium ABG Potassium ABG Chloride ABG Glucose 143 H Oxyhemoglobin Carboxyhemoglobin 1.6 H Sodium Potassium Chloride 96.9 L Carbon Dioxide 33 H 31 H BUN 40 H 38 H Creatinine 5.2 H 4.8 H Glucose 152 H 132 H POC Glucose Hemoglobin A1c Lactic Acid Calcium 7.9 L Phosphorus Magnesium Ferritin Total Bilirubin AST ALT Lactate Dehydrogenase C-Reactive Protein Albumin Triglycerides Arterial Blood Glucose 143 H Arterial Blood Ionized Calcium Urine Creatinine Coronavirus (PCR) Crossmatch 02/15/21 02/15/21 02/15/21 05:00 05:27 12:05 WBC RBC 2.30 L Hgb 7.1 L Hct 22.1 L MCV 96 H MCH MCHC RDW 15.7 H Plt Count Lymph % (Auto) 11.0 L Lymph # (Auto) 1.1 L Seg Neutrophils % 83.0 H Seg Neuts % (Manual) Lymphocytes % (Manual) Monocytes % (Manual) Nucleated RBC % Seg Neutrophils # 8.6 H Seg Neutrophils # Man Lymphocytes # (Manual) Monocytes # (Manual) Eosinophils # (Manual) INR D-Dimer ABG pH POC ABG pCO2 POC ABG pO2 ABG pO2 ABG HCO3 ABG O2 Saturation ABG Base Excess ABG Hemoglobin ABG Oxyhemoglobin ABG Sodium ABG Potassium ABG Chloride ABG Glucose Oxyhemoglobin Carboxyhemoglobin Sodium Potassium Chloride Carbon Dioxide BUN Creatinine Glucose POC Glucose 133 H 123 H Hemoglobin A1c Lactic Acid Calcium Phosphorus Magnesium Ferritin Total Bilirubin AST ALT Lactate Dehydrogenase C-Reactive Protein Albumin Triglycerides Arterial Blood Glucose Arterial Blood Ionized Calcium Urine Creatinine Coronavirus (PCR) Crossmatch 02/15/21 02/15/21 02/16/21 17:08 23:52 03:44 WBC RBC Hgb Hct MCV MCH MCHC RDW Plt Count Lymph % (Auto) Lymph # (Auto) Seg Neutrophils % Seg Neuts % (Manual) Lymphocytes % (Manual) Monocytes % (Manual) Nucleated RBC % Seg Neutrophils # Seg Neutrophils # Man Lymphocytes # (Manual) Monocytes # (Manual) Eosinophils # (Manual) INR D-Dimer ABG pH 7.307 L POC ABG pCO2 59.5 H POC ABG pO2 63.2 L ABG pO2 ABG HCO3 ABG O2 Saturation ABG Base Excess ABG Hemoglobin 9.3 L ABG Oxyhemoglobin ABG Sodium ABG Potassium ABG Chloride ABG Glucose 148 H Oxyhemoglobin Carboxyhemoglobin Sodium Potassium Chloride Carbon Dioxide BUN Creatinine Glucose POC Glucose 129 H 136 H Hemoglobin A1c Lactic Acid Calcium Phosphorus Magnesium Ferritin Total Bilirubin AST ALT Lactate Dehydrogenase C-Reactive Protein Albumin Triglycerides Arterial Blood Glucose 148 H Arterial Blood Ionized Calcium Urine Creatinine Coronavirus (PCR) Crossmatch 02/16/21 02/16/21 02/16/21 05:26 06:00 12:14 WBC RBC Hgb Hct MCV MCH MCHC RDW Plt Count Lymph % (Auto) Lymph # (Auto) Seg Neutrophils % Seg Neuts % (Manual) Lymphocytes % (Manual) Monocytes % (Manual) Nucleated RBC % Seg Neutrophils # Seg Neutrophils # Man Lymphocytes # (Manual) Monocytes # (Manual) Eosinophils # (Manual) INR D-Dimer ABG pH POC ABG pCO2 POC ABG pO2 ABG pO2 ABG HCO3 ABG O2 Saturation ABG Base Excess ABG Hemoglobin ABG Oxyhemoglobin ABG Sodium ABG Potassium ABG Chloride ABG Glucose Oxyhemoglobin Carboxyhemoglobin Sodium Potassium Chloride Carbon Dioxide BUN 52 H Creatinine 6.0 H Glucose 138 H POC Glucose 135 H 128 H Hemoglobin A1c Lactic Acid Calcium Phosphorus Magnesium Ferritin Total Bilirubin AST ALT Lactate Dehydrogenase C-Reactive Protein Albumin Triglycerides Arterial Blood Glucose Arterial Blood Ionized Calcium Urine Creatinine Coronavirus (PCR) Crossmatch 02/16/21 02/16/21 02/16/21 17:09 17:09 17:09 WBC RBC Hgb Hct MCV MCH MCHC RDW Plt Count Lymph % (Auto) Lymph # (Auto) Seg Neutrophils % Seg Neuts % (Manual) Lymphocytes % (Manual) Monocytes % (Manual) Nucleated RBC % Seg Neutrophils # Seg Neutrophils # Man Lymphocytes # (Manual) Monocytes # (Manual) Eosinophils # (Manual) INR D-Dimer 4256.08 H ABG pH POC ABG pCO2 POC ABG pO2 ABG pO2 ABG HCO3 ABG O2 Saturation ABG Base Excess ABG Hemoglobin ABG Oxyhemoglobin ABG Sodium ABG Potassium ABG Chloride ABG Glucose Oxyhemoglobin Carboxyhemoglobin Sodium Potassium Chloride Carbon Dioxide BUN Creatinine Glucose POC Glucose Hemoglobin A1c Lactic Acid Calcium Phosphorus Magnesium Ferritin 980.6 H Total Bilirubin AST ALT Lactate Dehydrogenase 441 H C-Reactive Protein 20.20 H Albumin Triglycerides Arterial Blood Glucose Arterial Blood Ionized Calcium Urine Creatinine Coronavirus (PCR) Crossmatch 02/16/21 02/16/21 02/16/21 17:25 23:16 Unknown WBC RBC 2.19 L Hgb 7.1 L Hct 21.3 L MCV 98 H MCH 33 H MCHC RDW 16.0 H Plt Count Lymph % (Auto) Lymph # (Auto) Seg Neutrophils % Seg Neuts % (Manual) 85.0 H Lymphocytes % (Manual) 6.0 L Monocytes % (Manual) Nucleated RBC % 4.0 H Seg Neutrophils # Seg Neutrophils # Man Lymphocytes # (Manual) 0.5 L Monocytes # (Manual) Eosinophils # (Manual) INR D-Dimer ABG pH POC ABG pCO2 POC ABG pO2 ABG pO2 ABG HCO3 ABG O2 Saturation ABG Base Excess ABG Hemoglobin ABG Oxyhemoglobin ABG Sodium ABG Potassium ABG Chloride ABG Glucose Oxyhemoglobin Carboxyhemoglobin Sodium Potassium Chloride Carbon Dioxide BUN Creatinine Glucose POC Glucose 146 H 150 H Hemoglobin A1c Lactic Acid Calcium Phosphorus Magnesium Ferritin Total Bilirubin AST ALT Lactate Dehydrogenase C-Reactive Protein Albumin Triglycerides Arterial Blood Glucose Arterial Blood Ionized Calcium Urine Creatinine Coronavirus (PCR) Crossmatch 02/17/21 02/17/21 02/17/21 04:00 04:14 04:14 WBC RBC Hgb Hct MCV MCH MCHC RDW Plt Count Lymph % (Auto) Lymph # (Auto) Seg Neutrophils % Seg Neuts % (Manual) Lymphocytes % (Manual) Monocytes % (Manual) Nucleated RBC % Seg Neutrophils # Seg Neutrophils # Man Lymphocytes # (Manual) Monocytes # (Manual) Eosinophils # (Manual) INR D-Dimer 3183.35 H ABG pH 7.293 L POC ABG pCO2 59.5 H POC ABG pO2 68.1 L ABG pO2 ABG HCO3 ABG O2 Saturation ABG Base Excess ABG Hemoglobin 7.7 L ABG Oxyhemoglobin ABG Sodium 133.4 L ABG Potassium ABG Chloride ABG Glucose 143 H Oxyhemoglobin Carboxyhemoglobin Sodium 136 L Potassium Chloride 97.3 L Carbon Dioxide BUN 49 H Creatinine 5.3 H Glucose 139 H POC Glucose Hemoglobin A1c Lactic Acid Calcium Phosphorus Magnesium Ferritin Total Bilirubin AST ALT Lactate Dehydrogenase C-Reactive Protein Albumin Triglycerides Arterial Blood Glucose 143 H Arterial Blood Ionized Calcium Urine Creatinine Coronavirus (PCR) Crossmatch 02/17/21 02/17/21 02/17/21 04:14 04:14 04:14 WBC RBC 2.14 L Hgb 6.9 L Hct 21.0 L MCV 98 H MCH MCHC RDW 15.8 H Plt Count Lymph % (Auto) Lymph # (Auto) Seg Neutrophils % Seg Neuts % (Manual) Lymphocytes % (Manual) Monocytes % (Manual) Nucleated RBC % Seg Neutrophils # Seg Neutrophils # Man Lymphocytes # (Manual) Monocytes # (Manual) Eosinophils # (Manual) INR D-Dimer ABG pH POC ABG pCO2 POC ABG pO2 ABG pO2 ABG HCO3 ABG O2 Saturation ABG Base Excess ABG Hemoglobin ABG Oxyhemoglobin ABG Sodium ABG Potassium ABG Chloride ABG Glucose Oxyhemoglobin Carboxyhemoglobin Sodium Potassium Chloride Carbon Dioxide BUN Creatinine Glucose POC Glucose Hemoglobin A1c Lactic Acid Calcium Phosphorus Magnesium Ferritin 894.0 H Total Bilirubin AST ALT Lactate Dehydrogenase 399 H C-Reactive Protein 22.10 H Albumin Triglycerides Arterial Blood Glucose Arterial Blood Ionized Calcium Urine Creatinine Coronavirus (PCR) Crossmatch 02/17/21 02/17/21 02/17/21 06:06 07:45 12:25 WBC RBC Hgb 7.6 L Hct 22.8 L MCV MCH MCHC RDW Plt Count Lymph % (Auto) Lymph # (Auto) Seg Neutrophils % Seg Neuts % (Manual) Lymphocytes % (Manual) Monocytes % (Manual) Nucleated RBC % Seg Neutrophils # Seg Neutrophils # Man Lymphocytes # (Manual) Monocytes # (Manual) Eosinophils # (Manual) INR D-Dimer ABG pH POC ABG pCO2 POC ABG pO2 ABG pO2 ABG HCO3 ABG O2 Saturation ABG Base Excess ABG Hemoglobin ABG Oxyhemoglobin ABG Sodium ABG Potassium ABG Chloride ABG Glucose Oxyhemoglobin Carboxyhemoglobin Sodium Potassium Chloride Carbon Dioxide BUN Creatinine Glucose POC Glucose 134 H Hemoglobin A1c Lactic Acid Calcium Phosphorus Magnesium Ferritin Total Bilirubin AST ALT Lactate Dehydrogenase C-Reactive Protein Albumin Triglycerides Arterial Blood Glucose Arterial Blood Ionized Calcium Urine Creatinine Coronavirus (PCR) Crossmatch See Detail 02/17/21 02/17/21 02/17/21 12:35 17:56 23:34 WBC RBC Hgb Hct MCV MCH MCHC RDW Plt Count Lymph % (Auto) Lymph # (Auto) Seg Neutrophils % Seg Neuts % (Manual) Lymphocytes % (Manual) Monocytes % (Manual) Nucleated RBC % Seg Neutrophils # Seg Neutrophils # Man Lymphocytes # (Manual) Monocytes # (Manual) Eosinophils # (Manual) INR D-Dimer ABG pH POC ABG pCO2 POC ABG pO2 ABG pO2 ABG HCO3 ABG O2 Saturation ABG Base Excess ABG Hemoglobin ABG Oxyhemoglobin ABG Sodium ABG Potassium ABG Chloride ABG Glucose Oxyhemoglobin Carboxyhemoglobin Sodium Potassium Chloride Carbon Dioxide BUN Creatinine Glucose POC Glucose 114 H 128 H 120 H Hemoglobin A1c Lactic Acid Calcium Phosphorus Magnesium Ferritin Total Bilirubin AST ALT Lactate Dehydrogenase C-Reactive Protein Albumin Triglycerides Arterial Blood Glucose Arterial Blood Ionized Calcium Urine Creatinine Coronavirus (PCR) Crossmatch 02/18/21 02/18/21 02/18/21 04:03 04:55 05:02 WBC RBC 2.40 L Hgb 7.5 L Hct 23.1 L MCV 96 H MCH MCHC RDW 16.8 H Plt Count Lymph % (Auto) Lymph # (Auto) Seg Neutrophils % Seg Neuts % (Manual) Lymphocytes % (Manual) Monocytes % (Manual) Nucleated RBC % Seg Neutrophils # Seg Neutrophils # Man Lymphocytes # (Manual) Monocytes # (Manual) Eosinophils # (Manual) INR D-Dimer ABG pH 7.219 L POC ABG pCO2 58.7 H POC ABG pO2 64.2 L ABG pO2 ABG HCO3 ABG O2 Saturation ABG Base Excess ABG Hemoglobin ABG Oxyhemoglobin ABG Sodium 130.5 L ABG Potassium ABG Chloride ABG Glucose 147 H Oxyhemoglobin Carboxyhemoglobin Sodium 134 L Potassium Chloride 97.9 L Carbon Dioxide BUN 64 H Creatinine 6.5 H Glucose 135 H POC Glucose Hemoglobin A1c Lactic Acid Calcium 8.0 L Phosphorus Magnesium Ferritin Total Bilirubin AST ALT Lactate Dehydrogenase C-Reactive Protein Albumin Triglycerides Arterial Blood Glucose 147 H Arterial Blood Ionized Calcium Urine Creatinine Coronavirus (PCR) Crossmatch 02/18/21 02/18/21 02/18/21 05:27 10:00 11:51 WBC RBC Hgb Hct MCV MCH MCHC RDW Plt Count Lymph % (Auto) Lymph # (Auto) Seg Neutrophils % Seg Neuts % (Manual) Lymphocytes % (Manual) Monocytes % (Manual) Nucleated RBC % Seg Neutrophils # Seg Neutrophils # Man Lymphocytes # (Manual) Monocytes # (Manual) Eosinophils # (Manual) INR D-Dimer ABG pH POC ABG pCO2 POC ABG pO2 ABG pO2 ABG HCO3 ABG O2 Saturation ABG Base Excess ABG Hemoglobin ABG Oxyhemoglobin ABG Sodium ABG Potassium ABG Chloride ABG Glucose Oxyhemoglobin Carboxyhemoglobin Sodium Potassium Chloride Carbon Dioxide BUN Creatinine Glucose POC Glucose 130 H 123 H Hemoglobin A1c Lactic Acid Calcium Phosphorus Magnesium Ferritin Total Bilirubin AST ALT Lactate Dehydrogenase C-Reactive Protein Albumin Triglycerides Arterial Blood Glucose Arterial Blood Ionized Calcium Urine Creatinine Coronavirus (PCR) Positive A Crossmatch 02/18/21 02/18/21 02/19/21 18:10 23:35 05:00 WBC RBC Hgb Hct MCV MCH MCHC RDW Plt Count Lymph % (Auto) Lymph # (Auto) Seg Neutrophils % Seg Neuts % (Manual) Lymphocytes % (Manual) Monocytes % (Manual) Nucleated RBC % Seg Neutrophils # Seg Neutrophils # Man Lymphocytes # (Manual) Monocytes # (Manual) Eosinophils # (Manual) INR D-Dimer ABG pH 7.232 L POC ABG pCO2 64.3 H POC ABG pO2 ABG pO2 ABG HCO3 ABG O2 Saturation ABG Base Excess ABG Hemoglobin 8.1 L ABG Oxyhemoglobin ABG Sodium 133.5 L ABG Potassium ABG Chloride ABG Glucose 148 H Oxyhemoglobin Carboxyhemoglobin 1.6 H Sodium Potassium Chloride Carbon Dioxide BUN Creatinine Glucose POC Glucose 123 H 137 H Hemoglobin A1c Lactic Acid Calcium Phosphorus Magnesium Ferritin Total Bilirubin AST ALT Lactate Dehydrogenase C-Reactive Protein Albumin Triglycerides Arterial Blood Glucose 148 H Arterial Blood Ionized Calcium Urine Creatinine Coronavirus (PCR) Crossmatch 02/19/21 02/19/21 02/19/21 05:12 05:45 05:45 WBC RBC Hgb Hct MCV MCH MCHC RDW Plt Count Lymph % (Auto) Lymph # (Auto) Seg Neutrophils % Seg Neuts % (Manual) Lymphocytes % (Manual) Monocytes % (Manual) Nucleated RBC % Seg Neutrophils # Seg Neutrophils # Man Lymphocytes # (Manual) Monocytes # (Manual) Eosinophils # (Manual) INR D-Dimer 4840.82 H ABG pH POC ABG pCO2 POC ABG pO2 ABG pO2 ABG HCO3 ABG O2 Saturation ABG Base Excess ABG Hemoglobin ABG Oxyhemoglobin ABG Sodium ABG Potassium ABG Chloride ABG Glucose Oxyhemoglobin Carboxyhemoglobin Sodium 135 L Potassium Chloride 97.8 L Carbon Dioxide BUN 58 H Creatinine 5.6 H Glucose 140 H POC Glucose 134 H Hemoglobin A1c Lactic Acid Calcium Phosphorus Magnesium Ferritin Total Bilirubin AST ALT Lactate Dehydrogenase 345 H C-Reactive Protein 15.20 H Albumin Triglycerides 195 H Arterial Blood Glucose Arterial Blood Ionized Calcium Urine Creatinine Coronavirus (PCR) Crossmatch 02/19/21 02/19/21 02/19/21 05:45 12:00 17:48 WBC RBC Hgb Hct MCV MCH MCHC RDW Plt Count Lymph % (Auto) Lymph # (Auto) Seg Neutrophils % Seg Neuts % (Manual) Lymphocytes % (Manual) Monocytes % (Manual) Nucleated RBC % Seg Neutrophils # Seg Neutrophils # Man Lymphocytes # (Manual) Monocytes # (Manual) Eosinophils # (Manual) INR D-Dimer ABG pH POC ABG pCO2 POC ABG pO2 ABG pO2 ABG HCO3 ABG O2 Saturation ABG Base Excess ABG Hemoglobin ABG Oxyhemoglobin ABG Sodium ABG Potassium ABG Chloride ABG Glucose Oxyhemoglobin Carboxyhemoglobin Sodium Potassium Chloride Carbon Dioxide BUN Creatinine Glucose POC Glucose 122 H 119 H Hemoglobin A1c Lactic Acid Calcium Phosphorus Magnesium Ferritin 951.8 H Total Bilirubin AST ALT Lactate Dehydrogenase C-Reactive Protein Albumin Triglycerides Arterial Blood Glucose Arterial Blood Ionized Calcium Urine Creatinine Coronavirus (PCR) Crossmatch 02/20/21 02/20/21 02/20/21 03:20 04:00 11:48 WBC RBC Hgb Hct MCV MCH MCHC RDW Plt Count Lymph % (Auto) Lymph # (Auto) Seg Neutrophils % Seg Neuts % (Manual) Lymphocytes % (Manual) Monocytes % (Manual) Nucleated RBC % Seg Neutrophils # Seg Neutrophils # Man Lymphocytes # (Manual) Monocytes # (Manual) Eosinophils # (Manual) INR D-Dimer ABG pH 7.276 L POC ABG pCO2 57.3 H POC ABG pO2 71.0 L ABG pO2 ABG HCO3 ABG O2 Saturation ABG Base Excess ABG Hemoglobin 8.2 L ABG Oxyhemoglobin 91.9 L ABG Sodium 128.1 L ABG Potassium 4.8 H ABG Chloride ABG Glucose Oxyhemoglobin Carboxyhemoglobin 1.6 H Sodium 136 L Potassium Chloride Carbon Dioxide BUN 69 H Creatinine 6.4 H Glucose POC Glucose 131 H Hemoglobin A1c Lactic Acid Calcium 8.1 L Phosphorus Magnesium Ferritin Total Bilirubin AST ALT Lactate Dehydrogenase C-Reactive Protein Albumin Triglycerides Arterial Blood Glucose Arterial Blood Ionized Calcium 4.5 L Urine Creatinine Coronavirus (PCR) Crossmatch 02/20/21 02/20/21 02/21/21 18:05 23:28 02:53 WBC RBC Hgb Hct MCV MCH MCHC RDW Plt Count Lymph % (Auto) Lymph # (Auto) Seg Neutrophils % Seg Neuts % (Manual) Lymphocytes % (Manual) Monocytes % (Manual) Nucleated RBC % Seg Neutrophils # Seg Neutrophils # Man Lymphocytes # (Manual) Monocytes # (Manual) Eosinophils # (Manual) INR D-Dimer ABG pH 7.288 L POC ABG pCO2 52.7 H POC ABG pO2 81.5 L ABG pO2 ABG HCO3 ABG O2 Saturation ABG Base Excess ABG Hemoglobin 8.5 L ABG Oxyhemoglobin 93.6 L ABG Sodium 132.5 L ABG Potassium 4.6 H ABG Chloride ABG Glucose 106 H Oxyhemoglobin Carboxyhemoglobin 1.6 H Sodium Potassium Chloride Carbon Dioxide BUN Creatinine Glucose POC Glucose 114 H 118 H Hemoglobin A1c Lactic Acid Calcium Phosphorus Magnesium Ferritin Total Bilirubin AST ALT Lactate Dehydrogenase C-Reactive Protein Albumin Triglycerides Arterial Blood Glucose 106 H Arterial Blood Ionized Calcium 4.4 L Urine Creatinine Coronavirus (PCR) Crossmatch 02/21/21 02/21/21 02/21/21 05:29 11:42 16:35 WBC RBC Hgb Hct MCV MCH MCHC RDW Plt Count Lymph % (Auto) Lymph # (Auto) Seg Neutrophils % Seg Neuts % (Manual) Lymphocytes % (Manual) Monocytes % (Manual) Nucleated RBC % Seg Neutrophils # Seg Neutrophils # Man Lymphocytes # (Manual) Monocytes # (Manual) Eosinophils # (Manual) INR D-Dimer ABG pH POC ABG pCO2 POC ABG pO2 ABG pO2 ABG HCO3 ABG O2 Saturation ABG Base Excess ABG Hemoglobin ABG Oxyhemoglobin ABG Sodium ABG Potassium ABG Chloride ABG Glucose Oxyhemoglobin Carboxyhemoglobin Sodium Potassium 5.6 H Chloride 97.6 L Carbon Dioxide BUN 68 H Creatinine 5.7 H Glucose 160 H POC Glucose 111 H 131 H Hemoglobin A1c Lactic Acid Calcium 8.0 L Phosphorus 7.90 H Magnesium 2.60 H Ferritin Total Bilirubin AST ALT Lactate Dehydrogenase C-Reactive Protein Albumin Triglycerides Arterial Blood Glucose Arterial Blood Ionized Calcium Urine Creatinine Coronavirus (PCR) Crossmatch 02/21/21 02/22/21 02/22/21 17:17 00:04 04:22 WBC RBC Hgb Hct MCV MCH MCHC RDW Plt Count Lymph % (Auto) Lymph # (Auto) Seg Neutrophils % Seg Neuts % (Manual) Lymphocytes % (Manual) Monocytes % (Manual) Nucleated RBC % Seg Neutrophils # Seg Neutrophils # Man Lymphocytes # (Manual) Monocytes # (Manual) Eosinophils # (Manual) INR D-Dimer ABG pH 7.250 L POC ABG pCO2 60.1 H POC ABG pO2 57.6 L ABG pO2 ABG HCO3 ABG O2 Saturation ABG Base Excess ABG Hemoglobin 8.8 L ABG Oxyhemoglobin 87.0 L ABG Sodium 133.4 L ABG Potassium 5.1 H ABG Chloride ABG Glucose 124 H Oxyhemoglobin Carboxyhemoglobin Sodium Potassium Chloride Carbon Dioxide BUN Creatinine Glucose POC Glucose 135 H 121 H Hemoglobin A1c Lactic Acid Calcium Phosphorus Magnesium Ferritin Total Bilirubin AST ALT Lactate Dehydrogenase C-Reactive Protein Albumin Triglycerides Arterial Blood Glucose 124 H Arterial Blood Ionized Calcium Urine Creatinine Coronavirus (PCR) Crossmatch 02/22/21 02/22/21 02/22/21 05:33 09:41 09:41 WBC 13.2 H RBC 2.35 L Hgb 7.5 L Hct 22.7 L MCV 96 H MCH MCHC RDW 17.0 H Plt Count Lymph % (Auto) Lymph # (Auto) Seg Neutrophils % Seg Neuts % (Manual) 93.0 H Lymphocytes % (Manual) 4.0 L Monocytes % (Manual) Nucleated RBC % 1.0 H Seg Neutrophils # Seg Neutrophils # Man 12.3 H Lymphocytes # (Manual) 0.5 L Monocytes # (Manual) Eosinophils # (Manual) INR D-Dimer ABG pH POC ABG pCO2 POC ABG pO2 ABG pO2 ABG HCO3 ABG O2 Saturation ABG Base Excess ABG Hemoglobin ABG Oxyhemoglobin ABG Sodium ABG Potassium ABG Chloride ABG Glucose Oxyhemoglobin Carboxyhemoglobin Sodium Potassium 5.4 H Chloride Carbon Dioxide BUN 61 H Creatinine 5.5 H Glucose 117 H POC Glucose 114 H Hemoglobin A1c Lactic Acid Calcium 8.3 L Phosphorus Magnesium Ferritin Total Bilirubin AST ALT Lactate Dehydrogenase C-Reactive Protein Albumin Triglycerides Arterial Blood Glucose Arterial Blood Ionized Calcium Urine Creatinine Coronavirus (PCR) Crossmatch 02/22/21 02/22/21 02/23/21 12:08 17:06 04:00 WBC RBC Hgb Hct MCV MCH MCHC RDW Plt Count Lymph % (Auto) Lymph # (Auto) Seg Neutrophils % Seg Neuts % (Manual) Lymphocytes % (Manual) Monocytes % (Manual) Nucleated RBC % Seg Neutrophils # Seg Neutrophils # Man Lymphocytes # (Manual) Monocytes # (Manual) Eosinophils # (Manual) INR D-Dimer ABG pH 7.246 L POC ABG pCO2 POC ABG pO2 ABG pO2 119.4 H ABG HCO3 26.6 H ABG O2 Saturation ABG Base Excess ABG Hemoglobin 8.8 L ABG Oxyhemoglobin ABG Sodium ABG Potassium ABG Chloride ABG Glucose Oxyhemoglobin Carboxyhemoglobin Sodium Potassium Chloride Carbon Dioxide BUN Creatinine Glucose POC Glucose 133 H 114 H Hemoglobin A1c Lactic Acid Calcium Phosphorus Magnesium Ferritin Total Bilirubin AST ALT Lactate Dehydrogenase C-Reactive Protein Albumin Triglycerides Arterial Blood Glucose Arterial Blood Ionized Calcium Urine Creatinine Coronavirus (PCR) Crossmatch 02/23/21 02/23/21 02/24/21 06:20 11:42 03:43 WBC RBC Hgb Hct MCV MCH MCHC RDW Plt Count Lymph % (Auto) Lymph # (Auto) Seg Neutrophils % Seg Neuts % (Manual) Lymphocytes % (Manual) Monocytes % (Manual) Nucleated RBC % Seg Neutrophils # Seg Neutrophils # Man Lymphocytes # (Manual) Monocytes # (Manual) Eosinophils # (Manual) INR D-Dimer ABG pH 7.287 L POC ABG pCO2 54.7 H POC ABG pO2 ABG pO2 ABG HCO3 ABG O2 Saturation ABG Base Excess ABG Hemoglobin 8.5 L ABG Oxyhemoglobin ABG Sodium 135.6 L ABG Potassium ABG Chloride ABG Glucose 117 H Oxyhemoglobin Carboxyhemoglobin Sodium Potassium Chloride 97.6 L Carbon Dioxide BUN 79 H Creatinine 6.2 H Glucose POC Glucose 108 H Hemoglobin A1c Lactic Acid Calcium 8.3 L Phosphorus Magnesium Ferritin Total Bilirubin AST ALT Lactate Dehydrogenase C-Reactive Protein Albumin Triglycerides Arterial Blood Glucose 117 H Arterial Blood Ionized Calcium Urine Creatinine Coronavirus (PCR) Crossmatch 02/24/21 02/24/21 02/24/21 04:25 04:25 04:25 WBC 11.5 H RBC 2.47 L Hgb 7.7 L Hct 23.5 L MCV 95 H MCH MCHC RDW 16.7 H Plt Count Lymph % (Auto) Lymph # (Auto) Seg Neutrophils % Seg Neuts % (Manual) 82.0 H Lymphocytes % (Manual) 3.0 L Monocytes % (Manual) 11.0 H Nucleated RBC % Seg Neutrophils # Seg Neutrophils # Man 9.4 H Lymphocytes # (Manual) 0.3 L Monocytes # (Manual) 1.3 H Eosinophils # (Manual) INR D-Dimer 4695.21 H ABG pH POC ABG pCO2 POC ABG pO2 ABG pO2 ABG HCO3 ABG O2 Saturation ABG Base Excess ABG Hemoglobin ABG Oxyhemoglobin ABG Sodium ABG Potassium ABG Chloride ABG Glucose Oxyhemoglobin Carboxyhemoglobin Sodium Potassium Chloride Carbon Dioxide BUN 68 H Creatinine 4.9 H Glucose 113 H POC Glucose Hemoglobin A1c Lactic Acid Calcium Phosphorus Magnesium Ferritin Total Bilirubin AST ALT Lactate Dehydrogenase C-Reactive Protein 7.20 H Albumin Triglycerides Arterial Blood Glucose Arterial Blood Ionized Calcium Urine Creatinine Coronavirus (PCR) Crossmatch 02/24/21 02/24/21 02/24/21 04:25 05:01 11:12 WBC RBC Hgb Hct MCV MCH MCHC RDW Plt Count Lymph % (Auto) Lymph # (Auto) Seg Neutrophils % Seg Neuts % (Manual) Lymphocytes % (Manual) Monocytes % (Manual) Nucleated RBC % Seg Neutrophils # Seg Neutrophils # Man Lymphocytes # (Manual) Monocytes # (Manual) Eosinophils # (Manual) INR D-Dimer ABG pH POC ABG pCO2 POC ABG pO2 ABG pO2 ABG HCO3 ABG O2 Saturation ABG Base Excess ABG Hemoglobin ABG Oxyhemoglobin ABG Sodium ABG Potassium ABG Chloride ABG Glucose Oxyhemoglobin Carboxyhemoglobin Sodium Potassium Chloride Carbon Dioxide BUN Creatinine Glucose POC Glucose 116 H 112 H Hemoglobin A1c Lactic Acid Calcium Phosphorus Magnesium Ferritin 1116.0 H Total Bilirubin AST ALT Lactate Dehydrogenase C-Reactive Protein Albumin Triglycerides Arterial Blood Glucose Arterial Blood Ionized Calcium Urine Creatinine Coronavirus (PCR) Crossmatch 02/24/21 02/25/21 02/25/21 18:11 03:42 05:58 WBC RBC Hgb Hct MCV MCH MCHC RDW Plt Count Lymph % (Auto) Lymph # (Auto) Seg Neutrophils % Seg Neuts % (Manual) Lymphocytes % (Manual) Monocytes % (Manual) Nucleated RBC % Seg Neutrophils # Seg Neutrophils # Man Lymphocytes # (Manual) Monocytes # (Manual) Eosinophils # (Manual) INR D-Dimer ABG pH 7.287 L POC ABG pCO2 58.2 H POC ABG pO2 ABG pO2 ABG HCO3 ABG O2 Saturation ABG Base Excess ABG Hemoglobin 8.4 L ABG Oxyhemoglobin 93.7 L ABG Sodium ABG Potassium ABG Chloride ABG Glucose 104 H Oxyhemoglobin Carboxyhemoglobin Sodium Potassium Chloride Carbon Dioxide BUN Creatinine Glucose POC Glucose 109 H 109 H Hemoglobin A1c Lactic Acid Calcium Phosphorus Magnesium Ferritin Total Bilirubin AST ALT Lactate Dehydrogenase C-Reactive Protein Albumin Triglycerides Arterial Blood Glucose 104 H Arterial Blood Ionized Calcium 4.5 L Urine Creatinine Coronavirus (PCR) Crossmatch 02/25/21 02/25/21 02/25/21 09:03 13:47 16:50 WBC RBC Hgb Hct MCV MCH MCHC RDW Plt Count Lymph % (Auto) Lymph # (Auto) Seg Neutrophils % Seg Neuts % (Manual) Lymphocytes % (Manual) Monocytes % (Manual) Nucleated RBC % Seg Neutrophils # Seg Neutrophils # Man Lymphocytes # (Manual) Monocytes # (Manual) Eosinophils # (Manual) INR D-Dimer 6536.84 H ABG pH POC ABG pCO2 POC ABG pO2 ABG pO2 ABG HCO3 ABG O2 Saturation ABG Base Excess ABG Hemoglobin ABG Oxyhemoglobin ABG Sodium ABG Potassium ABG Chloride ABG Glucose Oxyhemoglobin Carboxyhemoglobin Sodium Potassium Chloride Carbon Dioxide BUN Creatinine Glucose POC Glucose 144 H 114 H Hemoglobin A1c Lactic Acid Calcium Phosphorus Magnesium Ferritin Total Bilirubin AST ALT Lactate Dehydrogenase C-Reactive Protein Albumin Triglycerides Arterial Blood Glucose Arterial Blood Ionized Calcium Urine Creatinine Coronavirus (PCR) Crossmatch 02/25/21 02/26/21 02/26/21 23:53 03:35 05:36 WBC RBC Hgb Hct MCV MCH MCHC RDW Plt Count Lymph % (Auto) Lymph # (Auto) Seg Neutrophils % Seg Neuts % (Manual) Lymphocytes % (Manual) Monocytes % (Manual) Nucleated RBC % Seg Neutrophils # Seg Neutrophils # Man Lymphocytes # (Manual) Monocytes # (Manual) Eosinophils # (Manual) INR D-Dimer ABG pH 7.179 L POC ABG pCO2 76.6 H POC ABG pO2 ABG pO2 ABG HCO3 ABG O2 Saturation ABG Base Excess ABG Hemoglobin 9.0 L ABG Oxyhemoglobin ABG Sodium 134.8 L ABG Potassium ABG Chloride ABG Glucose 118 H Oxyhemoglobin Carboxyhemoglobin Sodium Potassium Chloride Carbon Dioxide BUN Creatinine Glucose POC Glucose 110 H 113 H Hemoglobin A1c Lactic Acid Calcium Phosphorus Magnesium Ferritin Total Bilirubin AST ALT Lactate Dehydrogenase C-Reactive Protein Albumin Triglycerides Arterial Blood Glucose 118 H Arterial Blood Ionized Calcium Urine Creatinine Coronavirus (PCR) Crossmatch 02/26/21 02/26/21 02/26/21 05:48 05:48 05:48 WBC 11.4 H RBC 2.40 L Hgb 7.5 L Hct 23.2 L MCV 97 H MCH MCHC RDW 17.4 H Plt Count Lymph % (Auto) Lymph # (Auto) Seg Neutrophils % Seg Neuts % (Manual) Lymphocytes % (Manual) Monocytes % (Manual) Nucleated RBC % Seg Neutrophils # Seg Neutrophils # Man Lymphocytes # (Manual) Monocytes # (Manual) Eosinophils # (Manual) INR D-Dimer ABG pH POC ABG pCO2 POC ABG pO2 ABG pO2 ABG HCO3 ABG O2 Saturation ABG Base Excess ABG Hemoglobin ABG Oxyhemoglobin ABG Sodium ABG Potassium ABG Chloride ABG Glucose Oxyhemoglobin Carboxyhemoglobin Sodium Potassium Chloride Carbon Dioxide BUN 72 H Creatinine 4.5 H Glucose 112 H POC Glucose Hemoglobin A1c Lactic Acid Calcium 7.7 L Phosphorus Magnesium Ferritin 867.8 H Total Bilirubin AST ALT Lactate Dehydrogenase C-Reactive Protein 5.90 H Albumin Triglycerides Arterial Blood Glucose Arterial Blood Ionized Calcium Urine Creatinine Coronavirus (PCR) Crossmatch 02/26/21 02/26/21 02/26/21 08:00 11:29 18:13 WBC RBC Hgb Hct MCV MCH MCHC RDW Plt Count Lymph % (Auto) Lymph # (Auto) Seg Neutrophils % Seg Neuts % (Manual) Lymphocytes % (Manual) Monocytes % (Manual) Nucleated RBC % Seg Neutrophils # Seg Neutrophils # Man Lymphocytes # (Manual) Monocytes # (Manual) Eosinophils # (Manual) INR D-Dimer ABG pH 7.228 L POC ABG pCO2 70.2 H POC ABG pO2 79.7 L ABG pO2 ABG HCO3 ABG O2 Saturation ABG Base Excess ABG Hemoglobin 7.6 L ABG Oxyhemoglobin 93.2 L ABG Sodium 135.7 L ABG Potassium ABG Chloride ABG Glucose 119 H Oxyhemoglobin Carboxyhemoglobin Sodium Potassium Chloride Carbon Dioxide BUN Creatinine Glucose POC Glucose 110 H 115 H Hemoglobin A1c Lactic Acid Calcium Phosphorus Magnesium Ferritin Total Bilirubin AST ALT Lactate Dehydrogenase C-Reactive Protein Albumin Triglycerides Arterial Blood Glucose 119 H Arterial Blood Ionized Calcium Urine Creatinine Coronavirus (PCR) Crossmatch 02/26/21 02/27/21 02/27/21 23:18 04:00 05:04 WBC RBC Hgb Hct MCV MCH MCHC RDW Plt Count Lymph % (Auto) Lymph # (Auto) Seg Neutrophils % Seg Neuts % (Manual) Lymphocytes % (Manual) Monocytes % (Manual) Nucleated RBC % Seg Neutrophils # Seg Neutrophils # Man Lymphocytes # (Manual) Monocytes # (Manual) Eosinophils # (Manual) INR D-Dimer ABG pH 7.316 L POC ABG pCO2 49.0 H POC ABG pO2 111.2 H ABG pO2 ABG HCO3 ABG O2 Saturation ABG Base Excess ABG Hemoglobin 7.7 L ABG Oxyhemoglobin ABG Sodium 135.0 L ABG Potassium ABG Chloride ABG Glucose 113 H Oxyhemoglobin Carboxyhemoglobin Sodium Potassium Chloride Carbon Dioxide BUN Creatinine Glucose POC Glucose 114 H 112 H Hemoglobin A1c Lactic Acid Calcium Phosphorus Magnesium Ferritin Total Bilirubin AST ALT Lactate Dehydrogenase C-Reactive Protein Albumin Triglycerides Arterial Blood Glucose 113 H Arterial Blood Ionized Calcium 4.4 L Urine Creatinine Coronavirus (PCR) Crossmatch 02/27/21 02/27/21 02/27/21 12:13 18:30 23:40 WBC RBC Hgb Hct MCV MCH MCHC RDW Plt Count Lymph % (Auto) Lymph # (Auto) Seg Neutrophils % Seg Neuts % (Manual) Lymphocytes % (Manual) Monocytes % (Manual) Nucleated RBC % Seg Neutrophils # Seg Neutrophils # Man Lymphocytes # (Manual) Monocytes # (Manual) Eosinophils # (Manual) INR D-Dimer ABG pH POC ABG pCO2 POC ABG pO2 ABG pO2 ABG HCO3 ABG O2 Saturation ABG Base Excess ABG Hemoglobin ABG Oxyhemoglobin ABG Sodium ABG Potassium ABG Chloride ABG Glucose Oxyhemoglobin Carboxyhemoglobin Sodium Potassium Chloride Carbon Dioxide BUN Creatinine Glucose POC Glucose 127 H 129 H 115 H Hemoglobin A1c Lactic Acid Calcium Phosphorus Magnesium Ferritin Total Bilirubin AST ALT Lactate Dehydrogenase C-Reactive Protein Albumin Triglycerides Arterial Blood Glucose Arterial Blood Ionized Calcium Urine Creatinine Coronavirus (PCR) Crossmatch 02/28/21 02/28/21 02/28/21 04:07 05:29 10:22 WBC RBC Hgb Hct MCV MCH MCHC RDW Plt Count Lymph % (Auto) Lymph # (Auto) Seg Neutrophils % Seg Neuts % (Manual) Lymphocytes % (Manual) Monocytes % (Manual) Nucleated RBC % Seg Neutrophils # Seg Neutrophils # Man Lymphocytes # (Manual) Monocytes # (Manual) Eosinophils # (Manual) INR D-Dimer ABG pH 7.260 L POC ABG pCO2 67.6 H POC ABG pO2 ABG pO2 ABG HCO3 ABG O2 Saturation ABG Base Excess ABG Hemoglobin 7.9 L ABG Oxyhemoglobin ABG Sodium ABG Potassium ABG Chloride ABG Glucose 129 H Oxyhemoglobin Carboxyhemoglobin Sodium Potassium Chloride Carbon Dioxide BUN 68 H Creatinine 3.5 H Glucose 117 H POC Glucose 117 H Hemoglobin A1c Lactic Acid Calcium 7.9 L Phosphorus Magnesium Ferritin Total Bilirubin AST ALT Lactate Dehydrogenase C-Reactive Protein Albumin Triglycerides Arterial Blood Glucose 129 H Arterial Blood Ionized Calcium Urine Creatinine Coronavirus (PCR) Crossmatch 02/28/21 02/28/21 03/01/21 11:51 17:26 00:31 WBC RBC Hgb Hct MCV MCH MCHC RDW Plt Count Lymph % (Auto) Lymph # (Auto) Seg Neutrophils % Seg Neuts % (Manual) Lymphocytes % (Manual) Monocytes % (Manual) Nucleated RBC % Seg Neutrophils # Seg Neutrophils # Man Lymphocytes # (Manual) Monocytes # (Manual) Eosinophils # (Manual) INR D-Dimer ABG pH POC ABG pCO2 POC ABG pO2 ABG pO2 ABG HCO3 ABG O2 Saturation ABG Base Excess ABG Hemoglobin ABG Oxyhemoglobin ABG Sodium ABG Potassium ABG Chloride ABG Glucose Oxyhemoglobin Carboxyhemoglobin Sodium Potassium Chloride Carbon Dioxide BUN Creatinine Glucose POC Glucose 123 H 121 H 112 H Hemoglobin A1c Lactic Acid Calcium Phosphorus Magnesium Ferritin Total Bilirubin AST ALT Lactate Dehydrogenase C-Reactive Protein Albumin Triglycerides Arterial Blood Glucose Arterial Blood Ionized Calcium Urine Creatinine Coronavirus (PCR) Crossmatch 03/01/21 03/01/21 03/01/21 03:29 06:00 06:17 WBC RBC Hgb Hct MCV MCH MCHC RDW Plt Count Lymph % (Auto) Lymph # (Auto) Seg Neutrophils % Seg Neuts % (Manual) Lymphocytes % (Manual) Monocytes % (Manual) Nucleated RBC % Seg Neutrophils # Seg Neutrophils # Man Lymphocytes # (Manual) Monocytes # (Manual) Eosinophils # (Manual) INR D-Dimer ABG pH POC ABG pCO2 52.3 H POC ABG pO2 115.1 H ABG pO2 ABG HCO3 ABG O2 Saturation ABG Base Excess ABG Hemoglobin 7.5 L ABG Oxyhemoglobin ABG Sodium 135.6 L ABG Potassium ABG Chloride ABG Glucose 117 H Oxyhemoglobin Carboxyhemoglobin 1.6 H Sodium Potassium Chloride Carbon Dioxide BUN 78 H Creatinine 3.6 H Glucose 110 H POC Glucose 121 H Hemoglobin A1c Lactic Acid Calcium 8.0 L Phosphorus Magnesium Ferritin Total Bilirubin AST ALT Lactate Dehydrogenase C-Reactive Protein Albumin Triglycerides Arterial Blood Glucose 117 H Arterial Blood Ionized Calcium Urine Creatinine Coronavirus (PCR) Crossmatch 03/01/21 03/02/21 03/02/21 23:22 04:43 05:46 WBC RBC Hgb Hct MCV MCH MCHC RDW Plt Count Lymph % (Auto) Lymph # (Auto) Seg Neutrophils % Seg Neuts % (Manual) Lymphocytes % (Manual) Monocytes % (Manual) Nucleated RBC % Seg Neutrophils # Seg Neutrophils # Man Lymphocytes # (Manual) Monocytes # (Manual) Eosinophils # (Manual) INR D-Dimer ABG pH POC ABG pCO2 POC ABG pO2 ABG pO2 ABG HCO3 ABG O2 Saturation ABG Base Excess ABG Hemoglobin ABG Oxyhemoglobin ABG Sodium ABG Potassium ABG Chloride ABG Glucose Oxyhemoglobin Carboxyhemoglobin Sodium Potassium Chloride Carbon Dioxide BUN 89 H Creatinine 3.6 H Glucose 116 H POC Glucose 116 H 126 H Hemoglobin A1c Lactic Acid Calcium 7.7 L Phosphorus Magnesium Ferritin Total Bilirubin AST ALT Lactate Dehydrogenase C-Reactive Protein Albumin Triglycerides Arterial Blood Glucose Arterial Blood Ionized Calcium Urine Creatinine Coronavirus (PCR) Crossmatch 03/02/21 03/02/21 03/02/21 08:35 11:35 15:17 WBC RBC 2.15 L Hgb 7.1 L Hct 20.4 L MCV 95 H MCH 33 H MCHC 35 H RDW 17.6 H Plt Count Lymph % (Auto) Lymph # (Auto) Seg Neutrophils % Seg Neuts % (Manual) Lymphocytes % (Manual) Monocytes % (Manual) Nucleated RBC % Seg Neutrophils # Seg Neutrophils # Man Lymphocytes # (Manual) Monocytes # (Manual) Eosinophils # (Manual) INR D-Dimer ABG pH POC ABG pCO2 POC ABG pO2 ABG pO2 ABG HCO3 ABG O2 Saturation ABG Base Excess ABG Hemoglobin ABG Oxyhemoglobin ABG Sodium ABG Potassium ABG Chloride ABG Glucose Oxyhemoglobin Carboxyhemoglobin Sodium Potassium Chloride Carbon Dioxide BUN Creatinine Glucose POC Glucose 117 H Hemoglobin A1c Lactic Acid Calcium Phosphorus Magnesium Ferritin Total Bilirubin AST ALT Lactate Dehydrogenase C-Reactive Protein Albumin Triglycerides Arterial Blood Glucose Arterial Blood Ionized Calcium Urine Creatinine Coronavirus (PCR) Positive A Crossmatch 03/02/21 03/02/21 03/02/21 17:50 23:26 Unknown WBC RBC Hgb Hct MCV MCH MCHC RDW Plt Count Lymph % (Auto) Lymph # (Auto) Seg Neutrophils % Seg Neuts % (Manual) Lymphocytes % (Manual) Monocytes % (Manual) Nucleated RBC % Seg Neutrophils # Seg Neutrophils # Man Lymphocytes # (Manual) Monocytes # (Manual) Eosinophils # (Manual) INR D-Dimer ABG pH 7.282 L POC ABG pCO2 POC ABG pO2 ABG pO2 150.8 H ABG HCO3 30.1 H ABG O2 Saturation ABG Base Excess ABG Hemoglobin 6.9 L ABG Oxyhemoglobin ABG Sodium ABG Potassium ABG Chloride ABG Glucose Oxyhemoglobin Carboxyhemoglobin Sodium Potassium Chloride Carbon Dioxide BUN Creatinine Glucose POC Glucose 131 H 143 H Hemoglobin A1c Lactic Acid Calcium Phosphorus Magnesium Ferritin Total Bilirubin AST ALT Lactate Dehydrogenase C-Reactive Protein Albumin Triglycerides Arterial Blood Glucose Arterial Blood Ionized Calcium Urine Creatinine Coronavirus (PCR) Crossmatch 03/03/21 03/03/21 03/03/21 03:50 05:46 17:16 WBC RBC Hgb Hct MCV MCH MCHC RDW Plt Count Lymph % (Auto) Lymph # (Auto) Seg Neutrophils % Seg Neuts % (Manual) Lymphocytes % (Manual) Monocytes % (Manual) Nucleated RBC % Seg Neutrophils # Seg Neutrophils # Man Lymphocytes # (Manual) Monocytes # (Manual) Eosinophils # (Manual) INR D-Dimer ABG pH 7.276 L POC ABG pCO2 POC ABG pO2 ABG pO2 ABG HCO3 31.7 H ABG O2 Saturation ABG Base Excess 4.3 H ABG Hemoglobin 6.7 L ABG Oxyhemoglobin ABG Sodium ABG Potassium ABG Chloride ABG Glucose Oxyhemoglobin 93.5 L Carboxyhemoglobin Sodium Potassium Chloride Carbon Dioxide BUN Creatinine Glucose POC Glucose 107 H 109 H Hemoglobin A1c Lactic Acid Calcium Phosphorus Magnesium Ferritin Total Bilirubin AST ALT Lactate Dehydrogenase C-Reactive Protein Albumin Triglycerides Arterial Blood Glucose Arterial Blood Ionized Calcium Urine Creatinine Coronavirus (PCR) Crossmatch 03/03/21 03/03/21 03/03/21 23:34 Unknown Unknown WBC 12.4 H RBC 2.26 L Hgb 6.8 L Hct 21.8 L MCV 96 H MCH MCHC 31 L RDW 18.5 H Plt Count Lymph % (Auto) Lymph # (Auto) Seg Neutrophils % Seg Neuts % (Manual) Lymphocytes % (Manual) Monocytes % (Manual) Nucleated RBC % Seg Neutrophils # Seg Neutrophils # Man Lymphocytes # (Manual) Monocytes # (Manual) Eosinophils # (Manual) INR D-Dimer ABG pH POC ABG pCO2 POC ABG pO2 ABG pO2 ABG HCO3 ABG O2 Saturation ABG Base Excess ABG Hemoglobin ABG Oxyhemoglobin ABG Sodium ABG Potassium ABG Chloride ABG Glucose Oxyhemoglobin Carboxyhemoglobin Sodium Potassium Chloride Carbon Dioxide BUN 70 H Creatinine 2.6 H Glucose 118 H POC Glucose 135 H Hemoglobin A1c Lactic Acid Calcium Phosphorus Magnesium Ferritin Total Bilirubin AST ALT Lactate Dehydrogenase C-Reactive Protein Albumin Triglycerides Arterial Blood Glucose Arterial Blood Ionized Calcium Urine Creatinine Coronavirus (PCR) Crossmatch 03/03/21 03/03/21 03/04/21 Unknown Unknown 03:15 WBC RBC Hgb Hct MCV MCH MCHC RDW Plt Count Lymph % (Auto) Lymph # (Auto) Seg Neutrophils % Seg Neuts % (Manual) Lymphocytes % (Manual) Monocytes % (Manual) Nucleated RBC % Seg Neutrophils # Seg Neutrophils # Man Lymphocytes # (Manual) Monocytes # (Manual) Eosinophils # (Manual) INR 1.15 H D-Dimer ABG pH 7.285 L POC ABG pCO2 POC ABG pO2 ABG pO2 ABG HCO3 28.8 H ABG O2 Saturation ABG Base Excess ABG Hemoglobin 8.3 L ABG Oxyhemoglobin ABG Sodium ABG Potassium ABG Chloride ABG Glucose Oxyhemoglobin 93.4 L Carboxyhemoglobin Sodium Potassium Chloride Carbon Dioxide BUN Creatinine Glucose POC Glucose Hemoglobin A1c Lactic Acid Calcium Phosphorus Magnesium Ferritin Total Bilirubin AST ALT Lactate Dehydrogenase C-Reactive Protein Albumin Triglycerides Arterial Blood Glucose Arterial Blood Ionized Calcium Urine Creatinine Coronavirus (PCR) Crossmatch See Detail 03/04/21 03/04/21 03/04/21 03:28 05:39 11:47 WBC RBC Hgb Hct MCV MCH MCHC RDW Plt Count Lymph % (Auto) Lymph # (Auto) Seg Neutrophils % Seg Neuts % (Manual) Lymphocytes % (Manual) Monocytes % (Manual) Nucleated RBC % Seg Neutrophils # Seg Neutrophils # Man Lymphocytes # (Manual) Monocytes # (Manual) Eosinophils # (Manual) INR D-Dimer ABG pH 7.285 L POC ABG pCO2 62.0 H POC ABG pO2 80.9 L ABG pO2 ABG HCO3 ABG O2 Saturation ABG Base Excess ABG Hemoglobin 8.3 L ABG Oxyhemoglobin ABG Sodium ABG Potassium ABG Chloride ABG Glucose 144 H Oxyhemoglobin Carboxyhemoglobin Sodium Potassium Chloride Carbon Dioxide BUN Creatinine Glucose POC Glucose 123 H 125 H Hemoglobin A1c Lactic Acid Calcium Phosphorus Magnesium Ferritin Total Bilirubin AST ALT Lactate Dehydrogenase C-Reactive Protein Albumin Triglycerides Arterial Blood Glucose 144 H Arterial Blood Ionized Calcium Urine Creatinine Coronavirus (PCR) Crossmatch 03/04/21 03/04/21 03/04/21 16:49 Unknown Unknown WBC 13.9 H RBC 2.58 L Hgb 7.7 L Hct 24.0 L MCV MCH MCHC RDW 20.3 H Plt Count Lymph % (Auto) Lymph # (Auto) Seg Neutrophils % Seg Neuts % (Manual) Lymphocytes % (Manual) Monocytes % (Manual) Nucleated RBC % Seg Neutrophils # Seg Neutrophils # Man Lymphocytes # (Manual) Monocytes # (Manual) Eosinophils # (Manual) INR D-Dimer ABG pH POC ABG pCO2 POC ABG pO2 ABG pO2 ABG HCO3 ABG O2 Saturation ABG Base Excess ABG Hemoglobin ABG Oxyhemoglobin ABG Sodium ABG Potassium ABG Chloride ABG Glucose Oxyhemoglobin Carboxyhemoglobin Sodium Potassium Chloride Carbon Dioxide BUN 78 H Creatinine 2.5 H Glucose 131 H POC Glucose 120 H Hemoglobin A1c Lactic Acid Calcium 8.2 L Phosphorus Magnesium Ferritin Total Bilirubin AST ALT Lactate Dehydrogenase C-Reactive Protein Albumin Triglycerides Arterial Blood Glucose Arterial Blood Ionized Calcium Urine Creatinine Coronavirus (PCR) Crossmatch 03/05/21 03/05/21 03/05/21 00:31 04:18 05:30 WBC RBC Hgb Hct MCV MCH MCHC RDW Plt Count Lymph % (Auto) Lymph # (Auto) Seg Neutrophils % Seg Neuts % (Manual) Lymphocytes % (Manual) Monocytes % (Manual) Nucleated RBC % Seg Neutrophils # Seg Neutrophils # Man Lymphocytes # (Manual) Monocytes # (Manual) Eosinophils # (Manual) INR D-Dimer ABG pH 7.160 L POC ABG pCO2 86.3 H POC ABG pO2 55.9 L ABG pO2 ABG HCO3 ABG O2 Saturation ABG Base Excess ABG Hemoglobin 8.3 L ABG Oxyhemoglobin 82.1 L ABG Sodium ABG Potassium ABG Chloride 108.0 H ABG Glucose 149 H Oxyhemoglobin Carboxyhemoglobin 1.7 H Sodium Potassium Chloride Carbon Dioxide BUN Creatinine Glucose POC Glucose 129 H 133 H Hemoglobin A1c Lactic Acid Calcium Phosphorus Magnesium Ferritin Total Bilirubin AST ALT Lactate Dehydrogenase C-Reactive Protein Albumin Triglycerides Arterial Blood Glucose 149 H Arterial Blood Ionized Calcium Urine Creatinine Coronavirus (PCR) Crossmatch 03/05/21 03/05/21 03/05/21 09:00 11:31 16:55 WBC RBC Hgb Hct MCV MCH MCHC RDW Plt Count Lymph % (Auto) Lymph # (Auto) Seg Neutrophils % Seg Neuts % (Manual) Lymphocytes % (Manual) Monocytes % (Manual) Nucleated RBC % Seg Neutrophils # Seg Neutrophils # Man Lymphocytes # (Manual) Monocytes # (Manual) Eosinophils # (Manual) INR D-Dimer ABG pH POC ABG pCO2 POC ABG pO2 ABG pO2 ABG HCO3 ABG O2 Saturation ABG Base Excess ABG Hemoglobin ABG Oxyhemoglobin ABG Sodium ABG Potassium ABG Chloride ABG Glucose Oxyhemoglobin Carboxyhemoglobin Sodium Potassium Chloride Carbon Dioxide BUN 84 H Creatinine 2.3 H Glucose 143 H POC Glucose 133 H 146 H Hemoglobin A1c Lactic Acid Calcium 8.0 L Phosphorus Magnesium Ferritin Total Bilirubin AST ALT Lactate Dehydrogenase C-Reactive Protein Albumin Triglycerides Arterial Blood Glucose Arterial Blood Ionized Calcium Urine Creatinine Coronavirus (PCR) Crossmatch 03/05/21 03/05/21 03/05/21 23:20 Unknown Unknown WBC RBC Hgb Hct MCV MCH MCHC RDW Plt Count Lymph % (Auto) Lymph # (Auto) Seg Neutrophils % Seg Neuts % (Manual) Lymphocytes % (Manual) Monocytes % (Manual) Nucleated RBC % Seg Neutrophils # Seg Neutrophils # Man Lymphocytes # (Manual) Monocytes # (Manual) Eosinophils # (Manual) INR D-Dimer ABG pH POC ABG pCO2 POC ABG pO2 ABG pO2 ABG HCO3 ABG O2 Saturation ABG Base Excess ABG Hemoglobin ABG Oxyhemoglobin ABG Sodium ABG Potassium ABG Chloride ABG Glucose Oxyhemoglobin Carboxyhemoglobin Sodium Potassium Chloride Carbon Dioxide BUN Creatinine Glucose POC Glucose 144 H Hemoglobin A1c Lactic Acid Calcium Phosphorus Magnesium Ferritin Total Bilirubin AST ALT Lactate Dehydrogenase C-Reactive Protein Albumin Triglycerides Arterial Blood Glucose Arterial Blood Ionized Calcium Urine Creatinine 65.9 H 66.1 H Coronavirus (PCR) Crossmatch 03/06/21 03/06/21 03/06/21 03:23 05:20 11:59 WBC RBC Hgb Hct MCV MCH MCHC RDW Plt Count Lymph % (Auto) Lymph # (Auto) Seg Neutrophils % Seg Neuts % (Manual) Lymphocytes % (Manual) Monocytes % (Manual) Nucleated RBC % Seg Neutrophils # Seg Neutrophils # Man Lymphocytes # (Manual) Monocytes # (Manual) Eosinophils # (Manual) INR D-Dimer ABG pH 7.239 L POC ABG pCO2 67.0 H POC ABG pO2 76.6 L ABG pO2 ABG HCO3 ABG O2 Saturation ABG Base Excess ABG Hemoglobin 8.0 L ABG Oxyhemoglobin 92.4 L ABG Sodium 145.6 H ABG Potassium ABG Chloride 108.0 H ABG Glucose 134 H Oxyhemoglobin Carboxyhemoglobin 2.1 H Sodium Potassium Chloride Carbon Dioxide BUN Creatinine Glucose POC Glucose 114 H 132 H Hemoglobin A1c Lactic Acid Calcium Phosphorus Magnesium Ferritin Total Bilirubin AST ALT Lactate Dehydrogenase C-Reactive Protein Albumin Triglycerides Arterial Blood Glucose 134 H Arterial Blood Ionized Calcium Urine Creatinine Coronavirus (PCR) Crossmatch 03/06/21 03/06/21 03/06/21 17:35 17:45 18:01 WBC RBC Hgb Hct MCV MCH MCHC RDW Plt Count Lymph % (Auto) Lymph # (Auto) Seg Neutrophils % Seg Neuts % (Manual) Lymphocytes % (Manual) Monocytes % (Manual) Nucleated RBC % Seg Neutrophils # Seg Neutrophils # Man Lymphocytes # (Manual) Monocytes # (Manual) Eosinophils # (Manual) INR D-Dimer ABG pH 7.286 L POC ABG pCO2 POC ABG pO2 ABG pO2 78.1 L ABG HCO3 33.7 H ABG O2 Saturation ABG Base Excess 5.5 H ABG Hemoglobin 10.3 L ABG Oxyhemoglobin ABG Sodium ABG Potassium ABG Chloride ABG Glucose Oxyhemoglobin 92.3 L Carboxyhemoglobin Sodium 148 H Potassium Chloride 107.1 H Carbon Dioxide 33 H BUN 91 H Creatinine 2.1 H Glucose 149 H POC Glucose 132 H Hemoglobin A1c Lactic Acid Calcium 8.2 L Phosphorus Magnesium Ferritin Total Bilirubin AST ALT Lactate Dehydrogenase C-Reactive Protein Albumin Triglycerides Arterial Blood Glucose Arterial Blood Ionized Calcium Urine Creatinine Coronavirus (PCR) Crossmatch 03/06/21 03/07/21 03/07/21 23:44 03:30 03:33 WBC RBC Hgb Hct MCV MCH MCHC RDW Plt Count Lymph % (Auto) Lymph # (Auto) Seg Neutrophils % Seg Neuts % (Manual) Lymphocytes % (Manual) Monocytes % (Manual) Nucleated RBC % Seg Neutrophils # Seg Neutrophils # Man Lymphocytes # (Manual) Monocytes # (Manual) Eosinophils # (Manual) INR D-Dimer ABG pH POC ABG pCO2 60.0 H POC ABG pO2 76.2 L ABG pO2 ABG HCO3 ABG O2 Saturation ABG Base Excess ABG Hemoglobin 7.7 L ABG Oxyhemoglobin 93.2 L ABG Sodium 148.6 H ABG Potassium ABG Chloride 112.0 H ABG Glucose 173 H Oxyhemoglobin Carboxyhemoglobin 1.7 H Sodium 147 H Potassium Chloride 107.4 H Carbon Dioxide BUN 90 H Creatinine 2.0 H Glucose 158 H POC Glucose 144 H Hemoglobin A1c Lactic Acid Calcium 8.0 L Phosphorus Magnesium Ferritin Total Bilirubin AST ALT Lactate Dehydrogenase C-Reactive Protein Albumin Triglycerides Arterial Blood Glucose 173 H Arterial Blood Ionized Calcium Urine Creatinine Coronavirus (PCR) Crossmatch 03/07/21 03/07/21 03/07/21 05:11 08:01 12:29 WBC 11.8 H RBC 2.45 L Hgb 7.2 L Hct 23.4 L MCV 96 H MCH MCHC 31 L RDW 19.7 H Plt Count Lymph % (Auto) 7.3 L Lymph # (Auto) 0.9 L Seg Neutrophils % 82.8 H Seg Neuts % (Manual) Lymphocytes % (Manual) Monocytes % (Manual) Nucleated RBC % Seg Neutrophils # 9.8 H Seg Neutrophils # Man Lymphocytes # (Manual) Monocytes # (Manual) Eosinophils # (Manual) INR D-Dimer ABG pH POC ABG pCO2 POC ABG pO2 ABG pO2 ABG HCO3 ABG O2 Saturation ABG Base Excess ABG Hemoglobin ABG Oxyhemoglobin ABG Sodium ABG Potassium ABG Chloride ABG Glucose Oxyhemoglobin Carboxyhemoglobin Sodium Potassium Chloride Carbon Dioxide BUN Creatinine Glucose POC Glucose 144 H 117 H Hemoglobin A1c Lactic Acid Calcium Phosphorus Magnesium Ferritin Total Bilirubin AST ALT Lactate Dehydrogenase C-Reactive Protein Albumin Triglycerides Arterial Blood Glucose Arterial Blood Ionized Calcium Urine Creatinine Coronavirus (PCR) Crossmatch 03/07/21 03/07/21 03/08/21 17:51 23:21 02:59 WBC RBC Hgb Hct MCV MCH MCHC RDW Plt Count Lymph % (Auto) Lymph # (Auto) Seg Neutrophils % Seg Neuts % (Manual) Lymphocytes % (Manual) Monocytes % (Manual) Nucleated RBC % Seg Neutrophils # Seg Neutrophils # Man Lymphocytes # (Manual) Monocytes # (Manual) Eosinophils # (Manual) INR D-Dimer ABG pH POC ABG pCO2 61.8 H POC ABG pO2 76.5 L ABG pO2 ABG HCO3 ABG O2 Saturation ABG Base Excess ABG Hemoglobin 8.3 L ABG Oxyhemoglobin 92.6 L ABG Sodium 150.5 H ABG Potassium ABG Chloride 114.0 H ABG Glucose 170 H Oxyhemoglobin Carboxyhemoglobin 1.9 H Sodium Potassium Chloride Carbon Dioxide BUN Creatinine Glucose POC Glucose 140 H 141 H Hemoglobin A1c Lactic Acid Calcium Phosphorus Magnesium Ferritin Total Bilirubin AST ALT Lactate Dehydrogenase C-Reactive Protein Albumin Triglycerides Arterial Blood Glucose 170 H Arterial Blood Ionized Calcium Urine Creatinine Coronavirus (PCR) Crossmatch 03/08/21 03/08/21 03/08/21 04:20 05:07 11:59 WBC RBC Hgb Hct MCV MCH MCHC RDW Plt Count Lymph % (Auto) Lymph # (Auto) Seg Neutrophils % Seg Neuts % (Manual) Lymphocytes % (Manual) Monocytes % (Manual) Nucleated RBC % Seg Neutrophils # Seg Neutrophils # Man Lymphocytes # (Manual) Monocytes # (Manual) Eosinophils # (Manual) INR D-Dimer ABG pH POC ABG pCO2 POC ABG pO2 ABG pO2 ABG HCO3 ABG O2 Saturation ABG Base Excess ABG Hemoglobin ABG Oxyhemoglobin ABG Sodium ABG Potassium ABG Chloride ABG Glucose Oxyhemoglobin Carboxyhemoglobin Sodium 151 H Potassium Chloride 112.1 H Carbon Dioxide 31 H BUN 90 H Creatinine 1.7 H Glucose 166 H POC Glucose 149 H 136 H Hemoglobin A1c Lactic Acid Calcium 7.9 L Phosphorus Magnesium Ferritin Total Bilirubin AST ALT Lactate Dehydrogenase C-Reactive Protein Albumin Triglycerides Arterial Blood Glucose Arterial Blood Ionized Calcium Urine Creatinine Coronavirus (PCR) Crossmatch 03/08/21 03/08/21 03/09/21 17:33 23:25 04:45 WBC RBC Hgb Hct MCV MCH MCHC RDW Plt Count Lymph % (Auto) Lymph # (Auto) Seg Neutrophils % Seg Neuts % (Manual) Lymphocytes % (Manual) Monocytes % (Manual) Nucleated RBC % Seg Neutrophils # Seg Neutrophils # Man Lymphocytes # (Manual) Monocytes # (Manual) Eosinophils # (Manual) INR D-Dimer ABG pH POC ABG pCO2 POC ABG pO2 ABG pO2 ABG HCO3 ABG O2 Saturation ABG Base Excess ABG Hemoglobin ABG Oxyhemoglobin ABG Sodium ABG Potassium ABG Chloride ABG Glucose Oxyhemoglobin Carboxyhemoglobin Sodium Potassium Chloride Carbon Dioxide BUN Creatinine Glucose POC Glucose 136 H 143 H 157 H Hemoglobin A1c Lactic Acid Calcium Phosphorus Magnesium Ferritin Total Bilirubin AST ALT Lactate Dehydrogenase C-Reactive Protein Albumin Triglycerides Arterial Blood Glucose Arterial Blood Ionized Calcium Urine Creatinine Coronavirus (PCR) Crossmatch 03/09/21 03/09/21 03/09/21 05:00 08:00 08:00 WBC 17.5 H RBC 2.41 L Hgb 7.0 L Hct 23.4 L MCV 97 H MCH MCHC 30 L RDW 20.1 H Plt Count Lymph % (Auto) Lymph # (Auto) Seg Neutrophils % Seg Neuts % (Manual) Lymphocytes % (Manual) Monocytes % (Manual) Nucleated RBC % Seg Neutrophils # Seg Neutrophils # Man Lymphocytes # (Manual) Monocytes # (Manual) Eosinophils # (Manual) INR D-Dimer ABG pH 7.256 L POC ABG pCO2 77.8 H POC ABG pO2 71.2 L ABG pO2 ABG HCO3 ABG O2 Saturation ABG Base Excess ABG Hemoglobin 8.2 L ABG Oxyhemoglobin 91.7 L ABG Sodium 152.4 H ABG Potassium ABG Chloride 115.0 H ABG Glucose 190 H Oxyhemoglobin Carboxyhemoglobin Sodium 157 H Potassium Chloride 115.2 H Carbon Dioxide 35 H BUN 96 H Creatinine 1.7 H Glucose 167 H POC Glucose Hemoglobin A1c Lactic Acid Calcium 7.8 L Phosphorus Magnesium Ferritin Total Bilirubin AST ALT Lactate Dehydrogenase C-Reactive Protein Albumin Triglycerides Arterial Blood Glucose 190 H Arterial Blood Ionized Calcium Urine Creatinine Coronavirus (PCR) Crossmatch 03/09/21 03/09/21 03/09/21 11:43 17:40 23:19 WBC RBC Hgb Hct MCV MCH MCHC RDW Plt Count Lymph % (Auto) Lymph # (Auto) Seg Neutrophils % Seg Neuts % (Manual) Lymphocytes % (Manual) Monocytes % (Manual) Nucleated RBC % Seg Neutrophils # Seg Neutrophils # Man Lymphocytes # (Manual) Monocytes # (Manual) Eosinophils # (Manual) INR D-Dimer ABG pH POC ABG pCO2 POC ABG pO2 ABG pO2 ABG HCO3 ABG O2 Saturation ABG Base Excess ABG Hemoglobin ABG Oxyhemoglobin ABG Sodium ABG Potassium ABG Chloride ABG Glucose Oxyhemoglobin Carboxyhemoglobin Sodium Potassium Chloride Carbon Dioxide BUN Creatinine Glucose POC Glucose 145 H 143 H 156 H Hemoglobin A1c Lactic Acid Calcium Phosphorus Magnesium Ferritin Total Bilirubin AST ALT Lactate Dehydrogenase C-Reactive Protein Albumin Triglycerides Arterial Blood Glucose Arterial Blood Ionized Calcium Urine Creatinine Coronavirus (PCR) Crossmatch 03/10/21 03/10/21 03/10/21 03:31 04:31 04:31 WBC 20.8 H RBC 2.37 L Hgb 6.9 L Hct 23.2 L MCV 98 H MCH MCHC 30 L RDW 20.0 H Plt Count Lymph % (Auto) Lymph # (Auto) Seg Neutrophils % Seg Neuts % (Manual) Lymphocytes % (Manual) Monocytes % (Manual) Nucleated RBC % Seg Neutrophils # Seg Neutrophils # Man Lymphocytes # (Manual) Monocytes # (Manual) Eosinophils # (Manual) INR D-Dimer ABG pH 7.252 L POC ABG pCO2 76.2 H POC ABG pO2 ABG pO2 ABG HCO3 ABG O2 Saturation ABG Base Excess ABG Hemoglobin 7.4 L ABG Oxyhemoglobin ABG Sodium 152.6 H ABG Potassium ABG Chloride 117.0 H ABG Glucose 182 H Oxyhemoglobin Carboxyhemoglobin 1.8 H Sodium 157 H Potassium Chloride 117.0 H Carbon Dioxide 35 H BUN 102 H Creatinine 2.0 H Glucose 165 H POC Glucose Hemoglobin A1c Lactic Acid Calcium 7.9 L Phosphorus Magnesium Ferritin Total Bilirubin AST ALT Lactate Dehydrogenase C-Reactive Protein Albumin Triglycerides Arterial Blood Glucose 182 H Arterial Blood Ionized Calcium 4.4 L Urine Creatinine Coronavirus (PCR) Crossmatch 03/10/21 03/10/21 03/10/21 05:35 11:40 17:44 WBC RBC Hgb Hct MCV MCH MCHC RDW Plt Count Lymph % (Auto) Lymph # (Auto) Seg Neutrophils % Seg Neuts % (Manual) Lymphocytes % (Manual) Monocytes % (Manual) Nucleated RBC % Seg Neutrophils # Seg Neutrophils # Man Lymphocytes # (Manual) Monocytes # (Manual) Eosinophils # (Manual) INR D-Dimer ABG pH POC ABG pCO2 POC ABG pO2 ABG pO2 ABG HCO3 ABG O2 Saturation ABG Base Excess ABG Hemoglobin ABG Oxyhemoglobin ABG Sodium ABG Potassium ABG Chloride ABG Glucose Oxyhemoglobin Carboxyhemoglobin Sodium Potassium Chloride Carbon Dioxide BUN Creatinine Glucose POC Glucose 152 H 149 H 144 H Hemoglobin A1c Lactic Acid Calcium Phosphorus Magnesium Ferritin Total Bilirubin AST ALT Lactate Dehydrogenase C-Reactive Protein Albumin Triglycerides Arterial Blood Glucose Arterial Blood Ionized Calcium Urine Creatinine Coronavirus (PCR) Crossmatch 03/10/21 03/11/21 03/11/21 22:28 00:09 03:20 WBC RBC Hgb Hct MCV MCH MCHC RDW Plt Count Lymph % (Auto) Lymph # (Auto) Seg Neutrophils % Seg Neuts % (Manual) Lymphocytes % (Manual) Monocytes % (Manual) Nucleated RBC % Seg Neutrophils # Seg Neutrophils # Man Lymphocytes # (Manual) Monocytes # (Manual) Eosinophils # (Manual) INR D-Dimer ABG pH 7.227 L POC ABG pCO2 78.7 H POC ABG pO2 82.1 L ABG pO2 ABG HCO3 ABG O2 Saturation ABG Base Excess ABG Hemoglobin 8.1 L ABG Oxyhemoglobin ABG Sodium 154.2 H ABG Potassium ABG Chloride 117.0 H ABG Glucose 196 H Oxyhemoglobin Carboxyhemoglobin Sodium Potassium Chloride Carbon Dioxide BUN Creatinine Glucose POC Glucose 168 H Hemoglobin A1c Lactic Acid Calcium Phosphorus Magnesium Ferritin Total Bilirubin AST ALT Lactate Dehydrogenase C-Reactive Protein Albumin Triglycerides Arterial Blood Glucose 196 H Arterial Blood Ionized Calcium 4.5 L Urine Creatinine Coronavirus (PCR) Crossmatch See Detail 03/11/21 03/11/21 03/11/21 04:40 04:40 06:11 WBC 16.5 H RBC 2.44 L Hgb 7.2 L Hct 23.9 L MCV 98 H MCH MCHC 30 L RDW 19.5 H Plt Count Lymph % (Auto) Lymph # (Auto) Seg Neutrophils % Seg Neuts % (Manual) Lymphocytes % (Manual) Monocytes % (Manual) Nucleated RBC % Seg Neutrophils # Seg Neutrophils # Man Lymphocytes # (Manual) Monocytes # (Manual) Eosinophils # (Manual) INR D-Dimer ABG pH POC ABG pCO2 POC ABG pO2 ABG pO2 ABG HCO3 ABG O2 Saturation ABG Base Excess ABG Hemoglobin ABG Oxyhemoglobin ABG Sodium ABG Potassium ABG Chloride ABG Glucose Oxyhemoglobin Carboxyhemoglobin Sodium 156 H Potassium Chloride 117.0 H Carbon Dioxide 32 H BUN 96 H Creatinine 2.0 H Glucose 175 H POC Glucose 177 H Hemoglobin A1c Lactic Acid Calcium 7.5 L Phosphorus Magnesium Ferritin Total Bilirubin AST ALT Lactate Dehydrogenase C-Reactive Protein Albumin Triglycerides Arterial Blood Glucose Arterial Blood Ionized Calcium Urine Creatinine Coronavirus (PCR) Crossmatch 03/11/21 03/11/21 03/11/21 11:28 15:00 17:17 WBC RBC Hgb Hct MCV MCH MCHC RDW Plt Count Lymph % (Auto) Lymph # (Auto) Seg Neutrophils % Seg Neuts % (Manual) Lymphocytes % (Manual) Monocytes % (Manual) Nucleated RBC % Seg Neutrophils # Seg Neutrophils # Man Lymphocytes # (Manual) Monocytes # (Manual) Eosinophils # (Manual) INR D-Dimer ABG pH POC ABG pCO2 POC ABG pO2 ABG pO2 ABG HCO3 ABG O2 Saturation ABG Base Excess ABG Hemoglobin ABG Oxyhemoglobin ABG Sodium ABG Potassium ABG Chloride ABG Glucose Oxyhemoglobin Carboxyhemoglobin Sodium Potassium Chloride Carbon Dioxide BUN Creatinine Glucose POC Glucose 174 H 156 H Hemoglobin A1c Lactic Acid Calcium Phosphorus Magnesium Ferritin Total Bilirubin AST ALT Lactate Dehydrogenase C-Reactive Protein Albumin Triglycerides Arterial Blood Glucose Arterial Blood Ionized Calcium Urine Creatinine 50.8 H Coronavirus (PCR) Crossmatch 03/11/21 03/12/21 03/12/21 23:37 03:07 04:40 WBC RBC Hgb Hct MCV MCH MCHC RDW Plt Count Lymph % (Auto) Lymph # (Auto) Seg Neutrophils % Seg Neuts % (Manual) Lymphocytes % (Manual) Monocytes % (Manual) Nucleated RBC % Seg Neutrophils # Seg Neutrophils # Man Lymphocytes # (Manual) Monocytes # (Manual) Eosinophils # (Manual) INR D-Dimer ABG pH 7.170 L POC ABG pCO2 67.8 H POC ABG pO2 ABG pO2 ABG HCO3 ABG O2 Saturation ABG Base Excess ABG Hemoglobin 8.6 L ABG Oxyhemoglobin ABG Sodium 147.5 H ABG Potassium 4.7 H ABG Chloride 117.0 H ABG Glucose 184 H Oxyhemoglobin Carboxyhemoglobin Sodium 152 H Potassium 5.1 H D Chloride 113.5 H Carbon Dioxide BUN 104 H Creatinine 2.9 H Glucose 162 H POC Glucose 134 H Hemoglobin A1c Lactic Acid Calcium 7.8 L Phosphorus Magnesium Ferritin Total Bilirubin AST ALT Lactate Dehydrogenase C-Reactive Protein Albumin Triglycerides Arterial Blood Glucose 184 H Arterial Blood Ionized Calcium 4.5 L Urine Creatinine Coronavirus (PCR) Crossmatch 03/12/21 03/12/21 03/12/21 04:40 05:02 11:50 WBC 35.0 H RBC 2.59 L Hgb 7.8 L Hct 26.0 L MCV 101 H MCH MCHC 30 L RDW 19.7 H Plt Count Lymph % (Auto) Lymph # (Auto) Seg Neutrophils % Seg Neuts % (Manual) 79.0 H Lymphocytes % (Manual) 6.0 L Monocytes % (Manual) Nucleated RBC % 1.5 H Seg Neutrophils # Seg Neutrophils # Man 27.7 H Lymphocytes # (Manual) Monocytes # (Manual) Eosinophils # (Manual) INR D-Dimer ABG pH POC ABG pCO2 POC ABG pO2 ABG pO2 ABG HCO3 ABG O2 Saturation ABG Base Excess ABG Hemoglobin ABG Oxyhemoglobin ABG Sodium ABG Potassium ABG Chloride ABG Glucose Oxyhemoglobin Carboxyhemoglobin Sodium Potassium Chloride Carbon Dioxide BUN Creatinine Glucose POC Glucose 140 H 201 H Hemoglobin A1c Lactic Acid Calcium Phosphorus Magnesium Ferritin Total Bilirubin AST ALT Lactate Dehydrogenase C-Reactive Protein Albumin Triglycerides Arterial Blood Glucose Arterial Blood Ionized Calcium Urine Creatinine Coronavirus (PCR) Crossmatch 03/12/21 17:16 WBC RBC Hgb Hct MCV MCH MCHC RDW Plt Count Lymph % (Auto) Lymph # (Auto) Seg Neutrophils % Seg Neuts % (Manual) Lymphocytes % (Manual) Monocytes % (Manual) Nucleated RBC % Seg Neutrophils # Seg Neutrophils # Man Lymphocytes # (Manual) Monocytes # (Manual) Eosinophils # (Manual) INR D-Dimer ABG pH POC ABG pCO2 POC ABG pO2 ABG pO2 ABG HCO3 ABG O2 Saturation ABG Base Excess ABG Hemoglobin ABG Oxyhemoglobin ABG Sodium ABG Potassium ABG Chloride ABG Glucose Oxyhemoglobin Carboxyhemoglobin Sodium Potassium Chloride Carbon Dioxide BUN Creatinine Glucose POC Glucose 156 H Hemoglobin A1c Lactic Acid Calcium Phosphorus Magnesium Ferritin Total Bilirubin AST ALT Lactate Dehydrogenase C-Reactive Protein Albumin Triglycerides Arterial Blood Glucose Arterial Blood Ionized Calcium Urine Creatinine Coronavirus (PCR) Crossmatch Chest x-ray: report reviewed, image reviewed (worsening bilateral infiltrates)
[2021-03-12] MEDS ORDERED: VANCOMYCIN PHARMACY TO DOSE IV SCH (19:00)
[2021-03-12] MEDS ORDERED: VANCOMYCIN 1,750 MG in SODIUM CHLORIDE 0.9% 500 ML 500 ML IV SCH (20:00)
--- NOTE | 2021-03-12 20:20 | Event Note ---
Date: 03/12/21 Katherine MCKEON was called at 1706 hrs. I presented to the bedside. The patient was found in asystolic arrest. The patient was treated in accordance with ACLS protocol with return of perfusing cardiac rhythm. Patient cardiac exam patient was found to have normal sinus rhythm with a heart rate in the 80s. Lung exam revealed bilateral rhonchi. Patient found to have poor prognosis. On neurologic exam patient pupils are fixed and dilated with suspected anoxic brain injury. 60 minutes critical care time dedicated to bedside patient care. Lauro hernandez family notified of change in patient status.
--- NOTE | 2021-03-12 20:21 | Death Note ---
Note Date of : 03/12/21 Time of : 19:47 Time Pronounced: 19:47 - Preliminary Cause of (problem) (1) DEISI (acute kidney injury) Preliminary cause of (2) Acute respiratory failure due to COVID-19 Preliminary cause of
--- NOTE | 2021-03-13 07:36 | Death Summary ---
Summary - Providers Date of service: 03/12/21 Consults: 01/22/21 23:13 Consult to Physician [CONS] Routine Comment: Consulting Provider: SAVANNAH LOWERY Physician Instructions: Reason For Exam: pui. pna. covid 01/23/21 02:11 Consult to Physician [CONS] Routine Comment: Consulting Provider: TARIK REDDY Physician Instructions: Reason For Exam: ICU ADMISSION FOR MECHANICAL VENTILATION 01/23/21 04:31 Consult to Physician [CONS] Routine Comment: Consulting Provider: VANDANA JONAS Physician Instructions: Reason For Exam: DEISI 01/28/21 13:19 Consult to PICC Line RN [CONS] Stat Reason For Exam: will use paralytic Type Line:: PICC 01/30/21 17:00 Consult to Dietitian/Nutrition [CONS] Routine Physician Instructions: Reason For Exam: Reason for Consult: Write/Manage Tube Feeding 02/09/21 08:07 Consult to Wound/ET Nurse [CONS] Routine Reason For Exam: Penis and Re-evaluate sacral 02/13/21 16:26 Consult to Physician [CONS] Routine Comment: Consulting Provider: ANIA ARMOS Physician Instructions: Reason For Exam: (+) stool occult 02/17/21 11:44 Consult to Wound/ET Nurse [CONS] Routine Reason For Exam: wound eval on upper lip breakdown 02/24/21 11:11 Consult to Physician [CONS] Routine Comment: Consulting Provider: RADHA KWAN Physician Instructions: Reason For Exam: ams 03/01/21 10:17 Consult to Physician [CONS] Routine Comment: Consulting Provider: PAULINA MARTINEZ Physician Instructions: Reason For Exam: penile ulceration with purulence 03/01/21 11:26 Consult to Physician [CONS] Routine Comment: Consulting Provider: KYLE OROZCO Physician Instructions: Reason For Exam: permcath placement 03/02/21 14:28 Consult to Wound/ET Nurse [CONS] Routine Reason For Exam: wound eval 03/03/21 15:41 Consult to Physician [CONS] Routine Comment: spoke on the phone/ teresa Consulting Provider: FELICIA REYNOLDS Physician Instructions: Reason For Exam: ?still infectious. Need permcath. COVID + x 3 03/04/21 12:42 Consult to Wound/ET Nurse [CONS] Stat Reason For Exam: wound eval Penis 03/05/21 15:51 Consult to Physician [CONS] Routine Comment: Consulting Provider: TIFFANY ORTIZ Physician Instructions: Please evaluate sacral wound for debridement Reason For Exam: Evaluation of sacral wound 03/06/21 16:43 Midline [Consult to PICC Line RN] [CONS] Routine Reason For Exam: needs IV access. Type Line:: Midline 03/07/21 07:00 Consult to Wound/ET Nurse [CONS] Routine Reason For Exam: wound eval, mid upper lip - ET tube Attending: MONO SILVA MD - summary Date of admission: 01/23/21 01:19 Date of : 03/12/21 Reason for admission: shortness of breath Significant findings: This is a 60-year-old male with diabetes mellitus, hypertension, hyperlipidemia, chronic renal insufficiency presents to the emergency department on 01/23 with shortness of breath, fevers chills, loss of smell and taste and body aches for the past 3 days via EMS. Per EMS patient's oxygen saturation on room air was 50% and after being placed on nonrebreather it increased 75%. Upon arrival to the emergency department patient was being bagged by EMS. In the emergency room patient was intubated due to severe hypoxia, increased work of breathing and lethargy. Patient was sedated on propofol and fentanyl. Patient presented with fever, tachycardia, tachypnea and acute hypoxic respiratory failure with PNA on CXR meeting Sepsis criteria. Lab work in the emergency department revealed hyponatremia, hypokalemia, hypochloremia, elevated CR/BUN and CXR showed bilateral pneumonia. Patient was admitted to the hospital service as a COVID-19 PUI with consults to infectious disease, nephrology and critical care medicine. 01/24/2021: Patient is intubated and sedated, patient is positive for COVID-19 infection. ID was consulted and put on dexamethasone and remdesivir. Patient has DEISI and nephrology is following. Creatinine stable, patient is urinating. Discussed with nephrology and he is okay with remdesivir. Pulmonary critical care is following for his vent setting. PEEP of 8 and FiO2 of 85%. Patient was alert and off sedatives. 01/25/2021; patient is intubated and on mechanical ventilation. Continue with treatment of Covid. Nephrology and ID is following. Pulmonary is following for vent management 01/26: Remains on mechanical ventilation and [facility] increased his PEEP. [facility] has ordered Precedex for sedation. Possibly need to prone this p.m. No acute events reported overnight. This morning his D-dimer is greater than 10,000 and we have started him on Lovenox 120 mg daily. Nutrition has been consulted for initiation of tube feedings. Patient remains sedated on propofol 40 and fentanyl for the time my examination this morning. 01/27: Continue Lovenox, remdesivir and empiric antibiotics. Patient had a T-max of 101 overnight. The time of examination patient is on CMV 500/18/14/0.61. Kidney function slightly worsened. Sedated on fentanyl ground-level fall and Precedex. Nephrology has increased IV fluids to 100 ml/hr. Continue to trend BMP and CBC. Sedation vacation attempt by RN this AM. 01/28: Patient completed antibiotics today [facility] will paralyze patient and increase sedation. PICC line ordered for possible vasopressor therapy need. Patient's D-dimer remains greater than 10,000 and he still has hyperchloremia. Patient's kidney function has improved today. May need to prone the patient if no improvement in oxygenation is noted in the next 24 hours. The time of my examination patient is sedated with propofol, fentanyl and Precedex and is on assist control 500/18/16/0.80 hypoxic on ABG on 60% FiO2. 01/29: Patient was started on Nimbex yesterday and his ABG this morning showed respiratory acidosis with hypercapnia and his respiratory rate was increased. We will obtain a repeat ABG this afternoon. This morning patient is hypernatremic, hyperkalemic and hyperchloremic. His potassium has been corrected with the management and will obtain repeat BMP tomorrow. His kidney functions have remained stable and we will await nephrology's input. No acute events reported overnight. This morning the time my examination patient sedated with propofol, Precedex and fentanyl and paralyzed with Nimbex. He is on assist control 500/24/16 0.80. 01/30: This morning patient is hypokalemic again and was given Kayexalate. Patient has hypernatremia and hyper chloremia and his renal function is slightly worse after receiving Lasix yesterday. His D-dimer remains greater than 10,000 and he is still on a paralytic. Patient is sedated on Precedex, fentanyl, propofol. Mechanical ventilation settings seven-point /61/28. [facility] has decided to continue paralytics for 48 more hours and will attempt proning the patient. Increased free water flushes 300 cc every 4 hours. Patient states has restarted his antibiotics cefepime and vancomycin and recultured. 01/31/21 Hyperkalemia, Treated 02/01/21 Hyperkalemia, Treated 02/02: Patient's kidney function continues to worsen and a stat BMP this morning shows BUN/creatinine 20/6.1 and he remains hypocalcemic and hypernatremic, hypokalemic and hypochloremic. Patient received 2 g of calcium gluconate and Kayexalate and his repeat potassium was 4.3 this afternoon. He remains antibiotic therapy and steroids. Nephrology has placed the patient on bicarb drip given metabolic acidosis and has decided to hold off hemodialysis till tomorrow.The time my examination patient is sedated on fentanyl, Precedex and on assist control 500/20/12/0.70. s/p paralytic. 02/03: Today patient's ABG shows respiratory acidosis however it is improving, hypernatremia, hyperchloremia, metabolic acidosis on BMP, worsening kidney function BUN/creatinine 130/9.2 with hyperphosphatemia. Patient received a Vas- Cath to his right IJ for initiation of dialysis. At the time of my examination patient remains sedated on fentanyl, propofol and Precedex with vasopressor support with Levophed at 2. 02/04: At the time of examination patient was on assist control tidal volume 500, rate 40, PEEP of 12, FiO2 85%. Patient had a T-max of 100.9 and infectious disease has stopped his vancomycin given negative MRSA. This afternoon patient respiked his temperature and was pancultured again. Patient was started on hemodialysis yesterday and will receive HD again today. Patient is sedated on Precedex, propofol, fentanyl and remains on Levophed. He is on assist control tidal volume 500, rate of 30, PEEP of 12, FiO2 of 85%. Patient still has some respiratory acidosis however his hypernatremia and hyperchloremia have improved and his metabolic acidosis has resolved. Patient will receive hemodialysis today 02/05: Patient continues to have low-grade fever temp this morning time examination he was on assist control tidal volume 500, and sedated on propofol/fentanyl/Precedex and is on Levophed. Hemodialysis per nephrology. Antibiotics per ID. Patient's blood culture from 02/04 grew gram-positive cocci in clusters in 1/2 bottles and he was started on vancomycin. 02/06: Patients ABG showed respiratory acidosis and the tracings were changed however a repeat ABG showed showed acidosis.[facility] will start a bicarb drip after giving 2 amps of bicarb push. Yesterday patient blood cultures grew gram- positive cocci and he was started on vancomycin. At the time my examination patient was on assist control tidal volume 550, rate 34, PEEP 16, FiO2 90% and sedated on fentanyl, Precedex, propofol elevated pressure support with Levophed. Bilateral lower extremity Doppler ultrasounds done yesterday showed no evidence of DVT/SVT. 02/07/2021; patient is still on the vent with PEEP of 16 and FiO2 of 90%, sedated with fentanyl Precedex and propofol. Patient still requiring Levophed. Patient was sedated yesterday and was given bicarb push. Blood culture grew gram-positive cocci in clusters and he is on vancomycin, will follow identification. 02/08/2021;patient is still on the vent with PEEP of 16 and FiO2 of 90%, sedated with fentanyl Precedex and propofol. Patient still requiring Levophed. Patient was sedated yesterday and was given bicarb push. Blood culture grew gram- positive cocci in clusters and he is on vancomycin, will follow identification. Patient is currently on dialysis. Patient is anemic transfuse if hemoglobin is below 7. 4/12: This morning patient has slight hypokalemia, hypochorlemia, hyponatremia and metabolic alkalosis. [facility] will continue bicarb gtt given that the patient does not have HD access at this time. We will replete the potassium and recheck BMP in the AM. We will type and cross in anticipation of PRBC transfusion. This morning he is sedated on Ativan, fentayl, and precedex. Will obtain a triglyceride level today in hopes to resume propofol. Patient is alkalotic and BMP however we will continue with bicarb drip per [facility] given that the patient does not have any access for hemodialysis. Anticipate replacing hemodialysis catheter tomorrow or Tuesday. The time my examination he is on AC TV 550, Rate 34, PeeP 16, FiO2 .65. 02/10: A.m. labs still pending, [facility] plans to replace HD catheter tomorrow as the patient is still febrile however his fever curve is trending down, remains on a bicarb drip and on vancomycin. Today at the time my examination patient was sedated on Precedex, Ativan and fentanyl and he is on assist control tidal 11/04/1951, rate 34, PEEP 16, FiO2 65%. Overnight patient was hypotensive and received 1 dose of midodrine. 02/11: Patient is still having low-grade temperatures that we will obtain a bilateral lower upper extremity venous Doppler ultrasound given that his repeat cultures have been negative so far. Patient received a Vas-Cath today for hemodialysis. The time examination patient is on assist control tidal volume 550, rate of 34, PEEP of 16 and FiO2 of 75%. Patient was hypokalemic and anemic yesterday which were both repleted with potassium and 1 unit PRBC. 02/12: 02/12: Patient had a 12-second run of V. tach today, his potassium and magnesium were low which was repleted. Renal adjusted potassium bath. We will obtain a triglyceride level in hopes to restarting to prevent as needed. This morning at the time my examination patient was sedated on fentanyl, Ativan and Precedex and remained on a bicarb drip. He was on assist control tidal volume 550, rate 34, PEEP 16, FiO2 85%. We will obtain a occult stool given no evident source of bleeding and need for transfusion. Anemia possibly due to hemodialysis. 02/13: Patient's T-max was 100.7, remains on fentanyl, Ativan, Precedex and bicarb drip this morning at some examination on assist control tidal volume 550, rate 34, PEEP 16 and FiO2 85%. On the labs this morning is slightly hypokalemic and remains metabolic alkalotic on BMP. His occult was positive. His Lovenox and consult GI. Patient received hemodialysis today. 02/14: cont PPI, GI recommended to scope now, monitor clinically, tolerating TF, remains intubated. Hb 6.9 today - transfuse another unit. very poor prognosis. 02/15: H&H appears to be stable following 1 unit of transfusion yesterday. Continue to hold heparin and aspirin products. Continue to monitor clinically. Poor prognosis. Wean off from vent as tolerated. 02/16: Infectious disease has signed off, his Ativan drip was discontinued and to prevent drip will be started when patient needs it. T-max 100.6 yesterday afternoon. He received hemodialysis today and at the time my examination was still on mechanical ventilation assist control tidal volume 550, rate 34, PEEP 16 on 70% FiO2. Patient was sedated on fentanyl dexamethasone and Ativan. No acute events reported overnight. 02/17: This morning patient was scheduled to get 2 units PRBC however his repeat H/H after 1 unit PRBC was 7.6/22.8 and the width of the second unit PRBC. This morning patient was sedated on fentanyl, propofol, Precedex and on assist control tolerated by 50, rate 34, PEEP of 16, FiO2 35%. Wound care was consulted today for his upper lip wound. Nephrology continues to withhold dialysis. No acute events reported overnight. Dr. Adkins was unable to contact family for updates. 02/18: Family updated by Dr. Adkins and Dr. Reddy. Patient had a hemodialysis today. The time my examination patient was on assist control tidal volume 550, rate 34, PEEP 16 and FiO2 35%. Overnight patient had a CT head and he was placed on 3% FiO2 and took "a long time to recover" per RN report. 02/19: Patient's D-dimer is trending up therefore he was started on prophylactic anticoagulation, no bowel movement for several days so he was started on mag citrate today. The time examination patient is sedated on Precedex 1.2, fentanyl 3, propofol 20 on assist control tidal volume 550, rate 34, PEEP 16, 80% FiO2 and on his ABG his PaO2 is 106. RT will try to wean as tolerated. Repeat COVID-19 PCR today was positive.Dr. Adkins updated the family today. 02/20: Patient received hemodialysis today. In the time my examination patient was sedated on Precedex, fentanyl, propofol and on assist control tidal line 550, rate 34, PEEP of 16 and 75% FiO2. Patient had a bowel movement yesterday. 02/21 no new concerns at this time afebrile Hospital course remains uncomplicated. 02/22. Hospital course complicated by an episode of ectopy over the p.m. Patient required Levophed for blood pressure control. Remains intubated sedated. Tolerated hemodialysis yesterday. 02/23: At the time my examination patient is on assist control tidal volume 550, rate 34, PEEP 16, FiO2 70% and is not sedated. Patient does not follow commands however his eyes open spontaneously and he does not track/focus. 02/24: Neurology consulted, EEG pending. No acute events reported overnight. Patient remains on hyperventilation totaling 550, rate 34, PEEP of 16 on 70% FiO2. Patient received hemodialysis yesterday. 02/25: EEG from 02/24 is suggestive of encephalopathy (toxic metabolic etiology cannot be excluded). This afternoon his peak pressures and and mean airway pressure is elevated so we obtained a CXR and ABG. Results were called to Dr. Masters. Patient received 2 mg of Versed was placed back on his sedation with fentanyl and Precedex. 02/26: Patient is on pressure ventilation FiO2 70%, Pressure inspiration 25, rate 34, PEEP 10 and sedated on fentanyl at 2mcgs and Precedex at 0.2. We will obtain a cxr for evaluation. Patient seems to be much more comfortable today. 02/27: CXr unchanged, at the time of my examination patient is on pressure control ventilation FiO2 70%, pressure support 26, rate 34 n.p.o. for 10 and sedated on fentanyl at 2 and Precedex at 0.1. His latest ABG 7.3, CO2 49, PO2 111, base excess 24. Patient is to receive hemodialysis today. No acute events reported overnight. Patient still not following commands. 02/28: Continue mechanical ventilation per pulmonary recommendations. Patient currently in AC mode ventilation rate 34, FiO2 70%, PEEP 15. 02/24 EEG finding consistent with encephalopathy and/or drug effect, possibility of toxic metabolic etiology cannot be excluded, possibility of structural lesion on the left side cannot be excluded given left being slightly slower than the right. Continue hemodialysis per nephrology. Currently with sedation of fentanyl and Precedex. Pulmonary plans for trach when ventilator settings allow. 03/01: Patient remains on mechanical ventilation AC mode, FiO2 70%, PEEP of 10. Hemodialysis initiated on 02/03/2021. Continue per nephrology. Patient will need tracheostomy once ventilator settings allow. Continue supportive care with tube feedings. Aspiration precautions. Patient appears to have penile ulceration and purulence. Consult urology for further evaluation. Prognosis remains guarded. 5/3: Tentative plan to place permacath tomorrow, patient will be n.p.o. after midnight and repeat COVID-19 PCR was ordered. Urology was consulted for a possible penile fistula. Patient received hemodialysis today. Today at the time of examination patient was on pressure control ventilation with a PEEP of 10 and FiO2 of 60 sedated on fentanyl and Precedex. 03/03: Patient noted to be anemic and ordered 1 unit of PRBC to be transfused, [facility] thinks patient has suffered from oxygen toxicity from prolonged time on high levels of oxygen (greater than 60%) for several weeks. The time my examination patient was on volume control ventilation and he remains off sedation. 03/04: Patient H/H today and .04/30:24 unit PRBC yesterday. Patient remains on pressure control ventilation with a pressure support of 26, FiO2 55, rate of 24 and PEEP of 10. His sedation was restarted yesterday for increase WOB and tachypnea. Patient is sedated on fentanyl and dexamethasone. We will continue current management and possibly obtain a CT head on Tuesday if no improvement in mental status. 03/05: Infectious disease has stated that the patient is noninfectious as per PermCath procedure. However patient is renal function is improving and nephrology has opted to place PermCath on Tuesday if HD is still indicated. Patient was given mag citrate today for constipation and sodium bicarbonate push. Today surgery was consulted for possible debridement of sacral wound. 03/06: Patient is sedated on fentanyl and dexamethasone on pressure control ventilation FiO2 55%, pressure support 26, rate 40 and PEEP of 10 at the time my examination. And he was switched to assist control by [facility]. Patient continues to have low-grade fevers which may be multifactorial. Given that creatinine clearance was 26 and urine output is improving nephrology has decided to hold HD for now. General surgery has debrided the sacaral wound today. Will attempt to obtain midline or PIV in order to remove CVL BILLIE. 03/07: Alert, examination patient was sedated on fentanyl and dexamethasone on assist control tidal volume 550, rate 26, PEEP of 14 and 55% FiO2. Patient renal function has remained stable and we will monitor him off of hemodialysis. RN was unable to obtain a midline or PIV. Per CCM CVL remain and possible small clot in the left IJ visualized with ultrasound probe. Will monitor fever curve. 03/08: Overnight FiO2 requirements increased, UOP remains good, decrease in Cr, increase in Na. Spoke to bedside RN about FWF. [facility] changed patient to PRVC. 03/09: Hypotensive. Received a bolus of fluid awaiting reevaluation may need to go back on pressors are still with intermittent low grade fever. Continues on Demadex. Not on dialysis at this time. [employer] has asked that HD access be discontinued. Nurse working on that. 03/10: Transfusion ordered palpable tenderness. We will continue to monitor closely. Pulmonary following for vent management and hypercapnia. Patient may need reevaluation by GI if anemia persist. Recheck labs in a.m. prognosis remains guarded to poor 03/11: WBC showing some improvement, Bicarb drip held due to noted resp acidosis, continue supportive care. No new change. 03/12: Worsening leukocytosis, sodium and hyperkalemia. [employer] following, Critical care doc also. Patient with worsening acidosis, overall prognosis is worse. Family updated per documentation. Continue care as outlined. per documentation from nocturnal doctor Date: 03/12/21 A SILVINA MCKEON was called at 1706 hrs. I presented to the bedside. The patient was found in asystolic arrest. The patient was treated in accordance with ACLS protocol with return of perfusing cardiac rhythm. Patient cardiac exam patient was found to have normal sinus rhythm with a heart rate in the 80s. Lung exam revealed bilateral rhonchi. Patient found to have poor prognosis. On neurologic exam patient pupils are fixed and dilated with suspected anoxic brain injury. 60 minutes critical care time dedicated to bedside patient care. Patient family notified of change in patient status. Sepsis COVID-19 pneumonia Coag-neg Staph bacteremia Acute hypoxic and hypercapnic respiratory failure Acute kidney injury, HD initiated 02/03 Hypernatremia Hyperkalemia Anemia Diabetes mellitus Hypertension Hyperlipidemia Chronic renal insufficiency Elevated D-dimer Penile ulceration Sacral wound
== END 2021-03-12 19:47 | DRG 981 ==
LOC: ED 22:23 → CC1 01-23 01:19
PROVIDERS: ADMIT Internal Medicine; ATTEND Internal Medicine
PROC: 0BH17EZ Insertion of Endotracheal Airway into Trachea, Via Natural or Artificial Opening (ICD-10-PCS; principal; 2021-01-23)
PROC: 5A1955Z Respiratory Ventilation, Greater than 96 Consecutive Hours (ICD-10-PCS; 2021-01-23)
PROC: XW033E5 Introduction of Remdesivir Anti-infective into Peripheral Vein, Percutaneous Approach, New Technology Group 5 (ICD-10-PCS; 2021-01-23)
PROC: 4A033R1 Measurement of Arterial Saturation, Peripheral, Percutaneous Approach (ICD-10-PCS; 2021-01-25)
PROC: 02HV33Z Insertion of Infusion Device into Superior Vena Cava, Percutaneous Approach (ICD-10-PCS; 2021-01-28)
PROC: 05HM33Z Insertion of Infusion Device into Right Internal Jugular Vein, Percutaneous Approach (ICD-10-PCS; 2021-02-03)
PROC: B543ZZA Ultrasonography of Right Jugular Veins, Guidance (ICD-10-PCS; 2021-02-03)
PROC: 5A1D70Z Performance of Urinary Filtration, Intermittent, Less than 6 Hours Per Day (ICD-10-PCS; 2021-02-03)
PROC: 5A1D70Z Performance of Urinary Filtration, Intermittent, Less than 6 Hours Per Day (ICD-10-PCS; 2021-02-04)
PROC: 5A1D70Z Performance of Urinary Filtration, Intermittent, Less than 6 Hours Per Day (ICD-10-PCS; 2021-02-05)
PROC: 5A1D70Z Performance of Urinary Filtration, Intermittent, Less than 6 Hours Per Day (ICD-10-PCS; 2021-02-06)
PROC: 5A1D70Z Performance of Urinary Filtration, Intermittent, Less than 6 Hours Per Day (ICD-10-PCS; 2021-02-07)
PROC: 30233N1 Transfusion of Nonautologous Red Blood Cells into Peripheral Vein, Percutaneous Approach (ICD-10-PCS; 2021-02-11)
PROC: 5A1D70Z Performance of Urinary Filtration, Intermittent, Less than 6 Hours Per Day (ICD-10-PCS; 2021-02-11)
PROC: 5A1D70Z Performance of Urinary Filtration, Intermittent, Less than 6 Hours Per Day (ICD-10-PCS; 2021-02-12)
PROC: 5A1D70Z Performance of Urinary Filtration, Intermittent, Less than 6 Hours Per Day (ICD-10-PCS; 2021-02-13)
PROC: 5A1D70Z Performance of Urinary Filtration, Intermittent, Less than 6 Hours Per Day (ICD-10-PCS; 2021-02-14)
PROC: 5A1D70Z Performance of Urinary Filtration, Intermittent, Less than 6 Hours Per Day (ICD-10-PCS; 2021-02-16)
PROC: 5A1D70Z Performance of Urinary Filtration, Intermittent, Less than 6 Hours Per Day (ICD-10-PCS; 2021-02-18)
PROC: 5A1D70Z Performance of Urinary Filtration, Intermittent, Less than 6 Hours Per Day (ICD-10-PCS; 2021-02-20)
PROC: 5A1D70Z Performance of Urinary Filtration, Intermittent, Less than 6 Hours Per Day (ICD-10-PCS; 2021-02-21)
PROC: 5A1D70Z Performance of Urinary Filtration, Intermittent, Less than 6 Hours Per Day (ICD-10-PCS; 2021-02-23)
PROC: 5A1D70Z Performance of Urinary Filtration, Intermittent, Less than 6 Hours Per Day (ICD-10-PCS; 2021-02-25)
PROC: 5A1D70Z Performance of Urinary Filtration, Intermittent, Less than 6 Hours Per Day (ICD-10-PCS; 2021-02-27)
PROC: 5A1D70Z Performance of Urinary Filtration, Intermittent, Less than 6 Hours Per Day (ICD-10-PCS; 2021-03-02)
PROC: 0KBP0ZZ Excision of Left Hip Muscle, Open Approach (ICD-10-PCS; 2021-03-06)
PROC: 0KBN0ZZ Excision of Right Hip Muscle, Open Approach (ICD-10-PCS; 2021-03-06)
PROC: 05HY33Z Insertion of Infusion Device into Upper Vein, Percutaneous Approach (ICD-10-PCS; 2021-03-08)
DX: U07.1 COVID-19 (principal); A41.1 Sepsis due to other specified staphylococcus; L89.154 Pressure ulcer of sacral region, stage 4; J12.82 Pneumonia due to coronavirus disease 2019; J80 Acute respiratory distress syndrome; R65.20 Severe sepsis without septic shock; N17.9 Acute kidney failure, unspecified; E87.1 Hypo-osmolality and hyponatremia; G93.40 Encephalopathy, unspecified; E87.6 Hypokalemia; D64.9 Anemia, unspecified; E11.22 Type 2 diabetes mellitus with diabetic chronic kidney disease; I12.9 Hypertensive chronic kidney disease with stage 1 through stage 4 chronic kidney disease, or unspecified chronic kidney disease; N18.9 Chronic kidney disease, unspecified; S31.000A Unspecified open wound of lower back and pelvis without penetration into retroperitoneum, initial encounter; E78.5 Hyperlipidemia, unspecified; R74.01 Elevation of levels of liver transaminase levels; Y93.89 Activity, other specified; Y92.89 Other specified places as the place of occurrence of the external cause; Y99.8 Other external cause status; Z79.4 Long term (current) use of insulin; Z79.899 Other long term (current) drug therapy
CPT/HCPCS: 36415; 36430; 36600; 70450; 71045; 80048; 80053; 80074; 80202; 81001; 82140; 82270; 82565; 82570; 82575; 82728; 82803; 82805; 82947; 82962; 83036; 83615; 83735; 83935; 84100; 84132; 84145; 84300; 84478; 85007; 85014; 85018; 85025; 85027; 85379; 85610; 86140; 86850; 86900; 86901; 86920; 87040; 87070; 87086; 87205; 87641; 93970; 94002; 94003; G0378; A6250; A6260; C9113; J0171; J0456; J0610; J0692; J0696; J0885; J1100; J1450; J1644; J1650; J1815; J1940; J2060; J2185; J2250; J2405; J2704; J3010; J3370; J3475; J3480; J3490; J7030; J7040; J7050; J7070; P9016; U0003